=== PATIENT | female | born 1975 | race Hispanic/Latino ===

== ENCOUNTER 2017-09-13 22:50 | Emergency (ER) | payer SELFPAY ==
[2017-09-13 23:10] LABS: Absolute Lymphocytes (CBC) 2.4 K/uL (0.7-4.9); Absolute Monocytes 0.7 K/uL (0.1-1.3); Absolute Neutrophil 5.8 K/uL (1.8-8.0); Eosinophils % 3.4 % (0-4.4); Hematocrit 37.2 % (36.0-45.0); Lymphocytes % 25.8 % (15.3-44.8); MCV 82.3 fL (80-100); MPV 9.7 fL (7.6-11.3); Monocytes % 7.3 % (3.3-12.3); RBC Red Blood Cell Count 4.52 M/uL (3.86-4.86)
[2017-09-13 23:17] LABS: Protime INR 0.92
[2017-09-13 23:24] LABS: Potassium 3.6 mmol/L (3.5-5.1)
[2017-09-13] MEDS ORDERED: NA CHLORIDE 0.9% 1,000 ML ONE (23:31)
[2017-09-13] MEDS ORDERED: ASPIRIN 81 MG CHEWABLE TABLET ONE (23:48)
[2017-09-13] MEDS ORDERED: FOLIC ACID 5 MG/ML VIAL ONE (23:49)
--- NOTE | 2017-09-14 00:18 | ER ---
Nurse's Notes [facility] Name: Shivani Lagunas Age: 42 yrs Sex: Female : 1975 Arrival Date: 09/13/2017 Time: 22:57 Bed 24 Private MD: Diagnosis: Weakness;Anxiety disorder, unspecified Presentation: 09/13 22:58 Presenting complaint: Patient states: she is having numbness to her face, arms, and bb legs since 1800 tonight. Transition of care: patient was not received from another setting of care. No acute neurological deficit is noted. Onset of symptoms was September 13, 2017 at 18:00. Risk Assessment: Do you want to hurt yourself or someone else? Patient reports no desire to harm self or others. Initial Sepsis Screen: Does the patient meet any 2 criteria? No. Patient's initial sepsis screen is negative. Does the patient have a suspected source of infection? No. Patient's initial sepsis screen is negative. Care prior to arrival: None. 22:58 Method Of Arrival: Ambulatory bb 22:58 Acuity: ALICIA 3 bb 22:58 Pre-hospital glucose is not applicable to this patient. 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 bb Stroke Activation: Symtpom onset >3 hours and < 6 hours Physician: Stroke Attending; Name: ; Notified At: ; Arrived At: Physician: Chief Stroke Resident; Name: ; Notified At: ; Arrived At: Physician: Stroke Resident; Name: ; Notified At: ; Arrived At: Physician: ED Attending; Name: PIETRO; Notified At: 22:58; Arrived At: 23:00 Physician: ED Resident; Name: ; Notified At: ; Arrived At: Historical: - Allergies: 23:12 Sulfa (Sulfonamide Antibiotics); bb - PMHx: 23:12 depression, anxiety, insomnia; Hypertension; Gout; fatty liver; bb - PSHx: 23:12 Cholecystectomy; ; Tubal ligation; bb - Immunization history:: Adult Immunizations up to date. - Social history:: Smoking status: Patient/guardian denies using tobacco, Patient/guardian denies using alcohol, street drugs. - Family history:: not pertinent. - Ebola Screening: : No symptoms or risks identified at this time. Screenin:05 Abuse screen: Denies threats or abuse. Nutritional screening: No deficits noted. bb Tuberculosis screening: No symptoms or risk factors identified. Fall Risk None identified. 23:20 The patient has not been NPO before screening. The patient is alert, able to follow bb commands. The patient does not exhibit slurred or garbled speech The patient is not exhibiting difficulty speaking. The patient does not exhibit difficulty understanding words. The patient is able to swallow own secretions with no drooling or need for suction. Patient tolerated one teaspoon of water. No drooling, immediate coughing, gurgling, or clearing of the throat was noted. The patient tolerated 90mL of water. No drooling, immediate coughing, gurgling, or clearing of the throat was noted. The patient passed the bedside swallow screening. Oral medications may be given as ordered. Contact Physician for further diet orders. 23:21 Patient has been NPO before screening. The patient is alert, able to follow commands. ed1 The patient does not exhibit slurred or garbled speech The patient is not exhibiting difficulty speaking. The patient does not exhibit difficulty understanding words. The patient is able to swallow own secretions with no drooling or need for suction. Patient tolerated one teaspoon of water. No drooling, immediate coughing, gurgling, or clearing of the throat was noted. The patient tolerated 90mL of water. No drooling, immediate coughing, gurgling, or clearing of the throat was noted. The patient passed the bedside swallow screening. Oral medications may be given as ordered. Contact Physician for further diet orders. Provider notified of bedside swallow screening results: Bal Dowling MD. Assessment: 23:05 Reassessment: PT TO CT SCAN VIA STRETCHER. bb 23:22 Reassessment: PT HAS NO NEURO DEFICITS SO NO DECISION FOR TPA. bb 23:22 Patient has been NPO before screening. The patient is alert, and able to follow ed1 commands. The patient does not exhibit slurred or garbled speech. The patient is not exhibiting difficulty speaking. The patient does not exhibit difficulty understanding words. The patient is able to swallow own secretions with no drooling or need for suction. Patient tolerated one teaspoon of water. No drooling, immediate coughing, gurgling, or clearing of the throat was noted. The patient tolerated 90mL of water. No drooling, immediate coughing, gurgling, or clearing of the throat was noted. The patient passed the bedside swallow screening. Oral medications may be given as ordered. Contact Physician for further diet orders. Provider notified of bedside swallow screening results: Bal Dowling MD. T-PA (Activase) Screening: Contraindications: Rapidly improving condition or minor deficit: Yes. Pain: Denies pain. Neuro: Level of Consciousness is awake, alert, obeys commands, Oriented to person, place, time, situation, Filling Mixer are equal bilaterally Moves all extremities. Full function Gait is steady, Speech is normal, Facial symmetry appears normal, Pupils are PERRLA, Intact Denies weakness blurred vision dizziness, difficulty swallowing, paresthesias numbness headache photophobia diplopia. 09/14 00:12 Reassessment: Patient appears in no apparent distress at this time. Patient and/or ed1 family updated on plan of care and expected duration. Pain level reassessed. Patient is alert, oriented x 3, equal unlabored respirations, skin warm/dry/pink. Pt reports tingling in hands only Patient denies pain at this time. Patient states feeling better. Patient states symptoms have improved. Vital Signs: 09/13 23:00 BP 168 / 92; Pulse 76; Resp 16 S; Temp 98.6(O); Pulse Ox 96% on R/A; Weight 86.64 kg bb (R); Height 5 ft. 6 in. (167.64 cm); Pain 0/10; 23:22 BP 150 / 98; Pulse 70; Resp 16; Pulse Ox 98% on R/A; Pain 0/10; ed1 09/14 00:12 BP 155 / 87; Pulse 65; Resp 18; Pulse Ox 99% on R/A; Pain 0/10; ed1 09/13 23:00 Body Mass Index 30.83 (86.64 kg, 167.64 cm) bb [place] Coma Score: 09/13 23:11 Eye Response: spontaneous(4). Verbal Response: oriented(5). Motor Response: obeys lori commands(6). Total: 15. NIH Stroke Scale Scores: 23:05 NIHSS Score: 0 bb 23:05 NIHSS Score: 0 bb 23:11 NIHSS Score: 0 lori ED Course: 22:57 Patient arrived in ED. ed1 22:59 Initial lab(s) drawn, by ED staff, sent to lab. EKG done, by ED staff, reviewed by yessenia Dowling MD. Inserted saline lock: 20 gauge in right antecubital area, using aseptic technique. Blood collected. 23:00 Arm band placed on Patient placed in an exam room, on a stretcher, on pulse oximetry. bb 23:01 EKG completed in triage. Results shown to MD. bb 23:05 Patient has correct armband on for positive identification. Placed in gown. Bed in low bb position. Call light in reach. Side rails up X2. 23:07 Bal Dowling MD is Attending Physician. lori 23:11 Triage completed. bb 23:11 CT Stroke Brain w/o Contrast In Process Unspecified. EDMS 23:12 CT completed. Patient tolerated procedure well. Patient moved to CT via stretcher. Patient moved back from CT. 23:14 Diann Jenkins LVN is Primary Nurse. ed1 23:33 X-ray completed. Portable x-ray completed in exam room. Patient tolerated procedure kw well. 23:35 Stroke CXR 1 View In Process Unspecified. EDMS 08/03 00:18 Vasyl Sawant MD is Referral Physician. lori 00:24 No provider procedures requiring assistance completed. IV discontinued, intact, ed1 bleeding controlled, No redness/swelling at site. Pressure dressing applied. 00:28 Primary Nurse role handed off by Diann Jenkins LVN ed1 Administered Medications: 09/13 23:25 Drug: NS 0.9% 1000 ml Route: IV; Rate: 1 bolus; Site: right antecubital; ed1 /03 00:25 Follow up: IV Status: Completed infusion; IV Intake: 1000ml ed1 09/13 23:46 Drug: Aspirin Chewable Tablet 324 mg Route: PO; ed1 /03 00:25 Follow up: Response: No adverse reaction ed1 / 23:46 Drug: foLIC Acid 1 mg Route: IVPB; Site: right antecubital; ed1 23:50 Follow up: IV Status: Completed infusion ed1 Point of Care Testing: Blood Glucose: 23:19 Blood Glucose: 100 mg/dL; ed1 Ranges: Intake: 09/14 00:25 IV: 1000ml; Total: 1000ml. ed1 Outcome: 00:18 Discharge ordered by MD. lori 00:24 Discharged to home ambulatory, with family. ed1 00:24 Condition: good 00:24 Discharge instructions given to patient, Instructed on discharge instructions, follow up and referral plans. medication usage, Demonstrated understanding of instructions, follow-up care, medications, Prescriptions given X 1. 00:26 Patient left the ED. ed1 NIH Stroke Scale - NIH Stroke Score Date: 09/13/2017 Time: 23:05 Total Score = 0 1a. Level of Consciousness (LOC) - 0(Alert) 1b. Level of Consciousness (LOC) (Year \T\ Age) - 0(Both) 1c. LOC Commands (Open \T\ Closes Eyes/Exterminator) - 0(Both) 2. Best Gaze (Lateral Gaze Paresis) - 0(Normal) 3. Visual Field Loss - 0(No visual loss) 4. Facial Palsy - 0(Normal) 5a. Left Arm: Motor (10-second hold) - 0(No drift) 5b. Right Arm: Motor (10-second hold) - 0(No drift) 6a. Left Leg: Motor (5-second hold - always test supine) - 0(No drift) 6b. Right Leg: Motor (5-second hold - always test supine) - 0(No drift) 7. Limb Ataxia (finger/nose \T\ heel/mejia - test with eyes open) - 0(Absent) 8. Sensory Loss (pinprick arms/legs/face) - 0(Normal) 9. Best Language: Aphasia (description/naming/reading) - 0(No aphasia) 10. Dysarthria (speech clarity - read or repeat words) - 0(Normal) 11. Extinction and Inattention (visual/tactile/auditory/spatial/personal) - 0(No abnormality) Initials: NIH Stroke Scale - NIH Stroke Score Date: 09/13/2017 Time: 23:05 Total Score = 0 1a. Level of Consciousness (LOC) - 0(Alert) 1b. Level of Consciousness (LOC) (Year \T\ Age) - 0(Both) 1c. LOC Commands (Open \T\ Closes Eyes/Exterminator) - 0(Both) 2. Best Gaze (Lateral Gaze Paresis) - 0(Normal) 3. Visual Field Loss - 0(No visual loss) 4. Facial Palsy - 0(Normal) 5a. Left Arm: Motor (10-second hold) - 0(No drift) 5b. Right Arm: Motor (10-second hold) - 0(No drift) 6a. Left Leg: Motor (5-second hold - always test supine) - 0(No drift) 6b. Right Leg: Motor (5-second hold - always test supine) - 0(No drift) 7. Limb Ataxia (finger/nose \T\ heel/mejia - test with eyes open) - 0(Absent) 8. Sensory Loss (pinprick arms/legs/face) - 0(Normal) 9. Best Language: Aphasia (description/naming/reading) - 0(No aphasia) 10. Dysarthria (speech clarity - read or repeat words) - 0(Normal) 11. Extinction and Inattention (visual/tactile/auditory/spatial/personal) - 0(No abnormality) Initials: yessenia NIH Stroke Scale - NIH Stroke Score Date: 09/13/2017 Time: 23:11 Total Score = 0 1a. Level of Consciousness (LOC) - 0(Alert) 1b. Level of Consciousness (LOC) (Year \T\ Age) - 0(Both) 1c. LOC Commands (Open \T\ Closes Eyes/Exterminator) - 0(Both) 2. Best Gaze (Lateral Gaze Paresis) - 0(Normal) 3. Visual Field Loss - 0(No visual loss) 4. Facial Palsy - 0(Normal) 5a. Left Arm: Motor (10-second hold) - 0(No drift) 5b. Right Arm: Motor (10-second hold) - 0(No drift) 6a. Left Leg: Motor (5-second hold - always test supine) - 0(No drift) 6b. Right Leg: Motor (5-second hold - always test supine) - 0(No drift) 7. Limb Ataxia (finger/nose \T\ heel/mejia - test with eyes open) - 0(Absent) 8. Sensory Loss (pinprick arms/legs/face) - 0(Normal) 9. Best Language: Aphasia (description/naming/reading) - 0(No aphasia) 10. Dysarthria (speech clarity - read or repeat words) - 0(Normal) 11. Extinction and Inattention (visual/tactile/auditory/spatial/personal) - 0(No abnormality) Initials: lori Signatures: Dispatcher [employer] EDBal Degroot MD MD cha Hagler, Ervin eh Ballard, Teresa, RN RN bb Diann Jenkins, TOP SPOTTER TOP SPOTTER ed1 Angela Siegel
--- NOTE | 2017-09-14 00:19 | EDPHYS ---
Physician Documentation [facility] Name: Shivani Lagunas Age: 42 yrs Sex: Female : 1975 Arrival Date: 09/13/2017 Time: 22:57 Bed 24 Private MD: ED Physician Bal Dowling HPI: 09/13 23:08 This 42 yrs old Female presents to ER via Unassigned with complaints of S/S of lori Possible Stroke. 23:08 The patient's problem is reported as weakness. Onset: The symptoms/episode lori began/occurred today. Duration: This was a single incident. Context: the episode(s) was witnessed, by no one. The symptoms are alleviated by nothing. The symptoms are aggravated by nothing. Associated signs and symptoms: The patient has no apparent associated signs or symptoms. Severity of symptoms: At their worst the symptoms were. Patient's baseline: Neuro: alert and fully oriented. The patient has not experienced similar symptoms in the past. 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 - Social history:: Smoking status: Patient/guardian denies using tobacco, Patient/guardian denies using alcohol, street drugs. - Family history:: not pertinent. - Ebola Screening: : No symptoms or risks identified at this time. ROS: 23:08 Constitutional: Negative for fever, chills, and weight loss, Eyes: Negative for injury, lori pain, redness, and discharge, ENT: Negative for injury, pain, and discharge, Neck: Negative for injury, pain, and swelling, Cardiovascular: Negative for chest pain, palpitations, and edema, Respiratory: Negative for shortness of breath, cough, wheezing, and pleuritic chest pain, Abdomen/GI: Negative for abdominal pain, nausea, vomiting, diarrhea, and constipation, Back: Negative for injury and pain, : Negative for injury, bleeding, discharge, and swelling, MS/Extremity: Negative for injury and deformity, Skin: Negative for injury, rash, and discoloration, Neuro: Negative for headache, weakness, numbness, tingling, and seizure, Psych: Negative for depression, anxiety, suicide ideation, homicidal ideation, and hallucinations, Allergy/Immunology: Negative for hives, rash, and allergies, Endocrine: Negative for neck swelling, polydipsia, polyuria, polyphagia, and marked weight changes, Hematologic/Lymphatic: Negative for swollen nodes, abnormal bleeding, and unusual bruising. Exam: 23:08 Constitutional: This is a well developed, well nourished patient who is awake, alert, lori and in no acute distress. Head/Face: Normocephalic, atraumatic. Eyes: Pupils equal round and reactive to light, extra-ocular motions intact. Lids and lashes normal. Conjunctiva and sclera are non-icteric and not injected. Cornea within normal limits. Periorbital areas with no swelling, redness, or edema. ENT: Nares patent. No nasal discharge, no septal abnormalities noted. Tympanic membranes are normal and external auditory canals are clear. Oropharynx with no redness, swelling, or masses, exudates, or evidence of obstruction, uvula midline. Mucous membranes moist. Neck: Trachea midline, no thyromegaly or masses palpated, and no cervical lymphadenopathy. Supple, full range of motion without nuchal rigidity, or vertebral point tenderness. No Meningismus. Chest/axilla: Normal chest wall appearance and motion. Nontender with no deformity. No lesions are appreciated. Cardiovascular: Regular rate and rhythm with a normal S1 and S2. No gallops, murmurs, or rubs. Normal PMI, no JVD. No pulse deficits. Respiratory: Lungs have equal breath sounds bilaterally, clear to auscultation and percussion. No rales, rhonchi or wheezes noted. No increased work of breathing, no retractions or nasal flaring. Abdomen/GI: Soft, non-tender, with normal bowel sounds. No distension or tympany. No guarding or rebound. No evidence of tenderness throughout. Back: No spinal tenderness. No costovertebral tenderness. Full range of motion. Skin: Warm, dry with normal turgor. Normal color with no rashes, no lesions, and no evidence of cellulitis. MS/ Extremity: Pulses equal, no cyanosis. Neurovascular intact. Full, normal range of motion. Neuro: Awake and alert, GCS 15, oriented to person, place, time, and situation. Cranial nerves II-XII grossly intact. Motor strength 5/5 in all extremities. Sensory grossly intact. Cerebellar exam normal. Normal gait. Psych: Awake, alert, with orientation to person, place and time. Behavior, mood, and affect are within normal limits. 23:11 Radiologist reports: neg [facility] Vital Signs: 23:00 BP 168 / 92; Pulse 76; Resp 16 S; Temp 98.6(O); Pulse Ox 96% on R/A; Weight 86.64 kg bb (R); Height 5 ft. 6 in. (167.64 cm); Pain 0/10; 23:22 BP 150 / 98; Pulse 70; Resp 16; Pulse Ox 98% on R/A; Pain 0/10; ed1 08 00:12 BP 155 / 87; Pulse 65; Resp 18; Pulse Ox 99% on R/A; Pain 0/10; ed1 08 23:00 Body Mass Index 30.83 (86.64 kg, 167.64 cm) NIH Stroke Scale Scores: 09/13 23:05 NIHSS Score: 0 23:05 NIHSS Score: 0 23:11 NIHSS Score: 0 [facility] [place] Coma Score: 23:11 Eye Response: spontaneous(4). Verbal Response: oriented(5). Motor Response: obeys [facility] commands(6). Total: 15. MDM: 23:07 Patient medically screened. [facility] 23:10 Data reviewed: vital signs, nurses notes, lab test result(s), EKG, radiologic studies, [facility] CT scan, plain films. 09/13 23:00 Order name: Basic Metabolic Panel; Complete Time: 23:36 ms 09/13 23:00 Order name: CBC with Diff; Complete Time: 23:36 id 09/13 23:00 Order name: Protime (+inr); Complete Time: 23:36 ms 09/13 23:00 Order name: Ptt, Activated; Complete Time: 23:36 id 09/13 23:00 Order name: Urine Microscopic Only ms 09/13 23:08 Order name: Urine Culture [facility] 09/13 23:00 Order name: CT Stroke Brain w/o Contrast ms 09/13 23:00 Order name: Stroke CXR 1 View ms 09/13 23:08 Order name: TSH; Complete Time: 23:36 [facility] 09/13 23:17 Order name: Sed Rate; Complete Time: 23:58 ms 09/13 23:17 Order name: CRP; Complete Time: 23:36 ms 09/13 23:00 Order name: EKG; Complete Time: 23:01 ms 09/13 23:00 Order name: Accucheck; Complete Time: 23:19 ms 09/13 23:00 Order name: Cardiac monitoring; Complete Time: 23:19 ms 09/13 23:00 Order name: EKG - Nurse/Tech; Complete Time: 23:18 ms 09/13 23:00 Order name: IV Saline Lock; Complete Time: 23:18 ms 09/13 23:00 Order name: Labs collected and sent; Complete Time: 23:18 ms 08 23:00 Order name: NPO; Complete Time: 23:15 ms 09/13 23:00 Order name: O2 Per Protocol; Complete Time: 23:15 ms 09/13 23:00 Order name: O2 Sat Monitoring; Complete Time: 23:15 ms 09/13 23:00 Order name: Stroke Swallow Screen; Complete Time: 23:22 ms 09/13 23:00 Order name: Urine Dipstick-Ancillary (obtain specimen); Complete Time: 00:13 ms Administered Medications: 23:25 Drug: NS 0.9% 1000 ml Route: IV; Rate: 1 bolus; Site: right antecubital; ed1 08/03 00:25 Follow up: IV Status: Completed infusion; IV Intake: 1000ml ed1 / 23:46 Drug: Aspirin Chewable Tablet 324 mg Route: PO; ed1 09/14 00:25 Follow up: Response: No adverse reaction ed1 / 23:46 Drug: foLIC Acid 1 mg Route: IVPB; Site: right antecubital; ed1 23:50 Follow up: IV Status: Completed infusion ed1 Point of Care Testing: Blood Glucose: 23:19 Blood Glucose: 100 mg/dL; ed1 Ranges: Critical Glucose Levels:Adult <50 mg/dl or >400 mg/dl <40 mg/dl or >180 mg/dl Disposition: 09/14/17 00:18 Discharged to Home. Impression: Weakness, Anxiety disorder, unspecified. - Condition is Stable. - Discharge Instructions: Panic Attacks, Weakness, Weakness, [id number], Aspirin and Your Heart, Generalized Anxiety Disorder. - Prescriptions for Xanax 0.5 mg Oral Tablet - take 1 tablet by ORAL route every 8 hours As needed; 20 tablet. - Medication Reconciliation Form, Thank You Letter, Antibiotic Education, Prescription Opioid Use form. - Follow up: Private Physician; When: 2 - 3 days; Reason: Recheck today's complaints, Continuance of care, Re-evaluation by your physician. Follow up: Vasyl Sawant; When: 2 - 3 days; Reason: Recheck today's complaints, Continuance of care, Re-evaluation by your physician. - Problem is new. - Symptoms have improved. NIH Stroke Scale - NIH Stroke Score Date: 09/13/2017 Time: 23:05 Total Score = 0 1a. Level of Consciousness (LOC) - 0(Alert) 1b. Level of Consciousness (LOC) (Year \T\ Age) - 0(Both) 1c. LOC Commands (Open \T\ Closes Eyes/Tool Keeper) - 0(Both) 2. Best Gaze (Lateral Gaze Paresis) - 0(Normal) 3. Visual Field Loss - 0(No visual loss) 4. Facial Palsy - 0(Normal) 5a. Left Arm: Motor (10-second hold) - 0(No drift) 5b. Right Arm: Motor (10-second hold) - 0(No drift) 6a. Left Leg: Motor (5-second hold - always test supine) - 0(No drift) 6b. Right Leg: Motor (5-second hold - always test supine) - 0(No drift) 7. Limb Ataxia (finger/nose \T\ heel/mejia - test with eyes open) - 0(Absent) 8. Sensory Loss (pinprick arms/legs/face) - 0(Normal) 9. Best Language: Aphasia (description/naming/reading) - 0(No aphasia) 10. Dysarthria (speech clarity - read or repeat words) - 0(Normal) 11. Extinction and Inattention (visual/tactile/auditory/spatial/personal) - 0(No abnormality) Initials: yessenia NIH Stroke Scale - NIH Stroke Score Date: 09/13/2017 Time: 23:05 Total Score = 0 1a. Level of Consciousness (LOC) - 0(Alert) 1b. Level of Consciousness (LOC) (Year \T\ Age) - 0(Both) 1c. LOC Commands (Open \T\ Closes Eyes/Tool Keeper) - 0(Both) 2. Best Gaze (Lateral Gaze Paresis) - 0(Normal) 3. Visual Field Loss - 0(No visual loss) 4. Facial Palsy - 0(Normal) 5a. Left Arm: Motor (10-second hold) - 0(No drift) 5b. Right Arm: Motor (10-second hold) - 0(No drift) 6a. Left Leg: Motor (5-second hold - always test supine) - 0(No drift) 6b. Right Leg: Motor (5-second hold - always test supine) - 0(No drift) 7. Limb Ataxia (finger/nose \T\ heel/mejia - test with eyes open) - 0(Absent) 8. Sensory Loss (pinprick arms/legs/face) - 0(Normal) 9. Best Language: Aphasia (description/naming/reading) - 0(No aphasia) 10. Dysarthria (speech clarity - read or repeat words) - 0(Normal) 11. Extinction and Inattention (visual/tactile/auditory/spatial/personal) - 0(No abnormality) Initials: NIH Stroke Scale - NIH Stroke Score Date: 09/13/2017 Time: 23:11 Total Score = 0 1a. Level of Consciousness (LOC) - 0(Alert) 1b. Level of Consciousness (LOC) (Year \T\ Age) - 0(Both) 1c. LOC Commands (Open \T\ Closes Eyes/Tool Keeper) - 0(Both) 2. Best Gaze (Lateral Gaze Paresis) - 0(Normal) 3. Visual Field Loss - 0(No visual loss) 4. Facial Palsy - 0(Normal) 5a. Left Arm: Motor (10-second hold) - 0(No drift) 5b. Right Arm: Motor (10-second hold) - 0(No drift) 6a. Left Leg: Motor (5-second hold - always test supine) - 0(No drift) 6b. Right Leg: Motor (5-second hold - always test supine) - 0(No drift) 7. Limb Ataxia (finger/nose \T\ heel/mejia - test with eyes open) - 0(Absent) 8. Sensory Loss (pinprick arms/legs/face) - 0(Normal) 9. Best Language: Aphasia (description/naming/reading) - 0(No aphasia) 10. Dysarthria (speech clarity - read or repeat words) - 0(Normal) 11. Extinction and Inattention (visual/tactile/auditory/spatial/personal) - 0(No abnormality) Initials: lori Signatures: Dispatcher [employer] EDMS Bal Dowling MD MD cha Ballard, Brenda, RN RN Mercedez Quezada ms AliceDiann, PIG MACHINE CRANE OPERATOR PIG MACHINE CRANE OPERATOR ed1 Corrections: (The following items were deleted from the chart) 09/14 00:26 00:18 09/14/2017 00:18 Discharged to Home. Impression: Weakness; Anxiety ed1 disorder, unspecified. Condition is Stable. Discharge Instructions: Panic Attacks, Weakness, Weakness, [id number], Aspirin and Your Heart, Generalized Anxiety Disorder. Prescriptions for Xanax 0.5 mg Oral Tablet - take 1 tablet by ORAL route every 8 hours As needed; 20 tablet. and Forms are Medication Reconciliation Form, Thank You Letter, Antibiotic Education, Prescription Opioid Use. Follow up: Private Physician; When: 2 - 3 days; Reason: Recheck today's complaints, Continuance of care, Re-evaluation by your physician. Follow up: Vasyl Sawant; When: 2 - 3 days; Reason: Recheck today's complaints, Continuance of care, Re-evaluation by your physician. Problem is new. Symptoms have improved. lori
[2017-09-14 00:30] LABS: Urine Bacteria <20 /HPF (<20); Urine Culture Reflex Order NOT NEEDED; Urine RBC <5 /HPF (NONE SEEN)
[2017-09-14 00:31] LABS: Urine Amorphous Sediment 1+ /HPF (NONE SEEN)
--- NOTE | 2017-09-14 06:47 | EKG ---
Test Date: 2017-09-13 Test Time: 23:01:10 Parts Fabricator: AMANDA MEASUREMENT RESULTS: Intervals: Rate: 69 [place]: 144 QRSD: 88 QT: 412 QTc: 441 [place]: P: 43 KS: 144 QRS: 14 T: 28 INTERPRETIVE STATEMENTS: Normal sinus rhythm Normal ECG Compared to ECG 08/22/2016 13:43:17 No significant changes Electronically Signed On 09-14-17 06:46:26 CDT by Darron Herron
--- NOTE | 2017-09-14 07:23 | RAD REPORT ---
EXAM DESCRIPTION: [place] Single View09/13/2017 11:34 pm CLINICAL HISTORY: Chest pain COMPARISON: August 2016 FINDINGS: The lungs appear clear of acute infiltrate. The heart is normal size IMPRESSION: No acute abnormalities displayed
--- NOTE | 2017-09-14 08:00 | RAD REPORT ---
EXAM DESCRIPTION: CT - Ct Stroke Brain Wo Cont - 09/14/2017 3:53 am CLINICAL HISTORY: numbness and headache COMPARISON: None. TECHNIQUE: Computed axial tomography of the head was obtained. IV contrast was not requested. A preliminary report was generated by NMRKT and reviewed prior to this dictation All CT scans are performed using dose optimization technique as appropriate and may include automated exposure control or mA/KV adjustment according to patient size. FINDINGS: An intracranial bleed is not seen . The ventricles are normal in caliber. No extra-axial fluid collection is noted. Fluid within the sinuses/ mastoids is not seen. IMPRESSION: No acute intracranial abnormality is seen. If patient's symptoms persist MRI of the bra in would be recommended. The examination was discussed with Doctor Dowling by Dr. Adams 11:20 p.m. September 13, 2017
== END 2017-09-14 00:26 | disposition home or self-care (01) ==
LOC: ER 22:50
DX: F41.9 Anxiety disorder, unspecified (principal); I10 Essential (primary) hypertension; Z88.2 Allergy status to sulfonamides
CPT/HCPCS: 36415; 70450; 71045; 80048; 81015; 82962; 84443; 85025; 85610; 85652; 85730; 86140; 87077; 87086; 87088; 87186; 93005; 96361; 96374; 99285; J7030

== ENCOUNTER 2018-03-12 10:30 | Emergency (ER) | payer SELFPAY ==
--- OUTSIDE RECORDS SUMMARY | 2018-03-12 10:32 | XMS REPORT ---
:1975 [facility] [place] Dr. Liang [address] [place] [id number] Care Team Providers Name Role Phone Unavailable Unavailable Unavailable Problems This patient has no known problems. Allergies, Adverse Reactions, Alerts This patient has no known allergies or adverse reactions. Medications This patient has no known medications.
[2018-03-12 11:32] LABS: Absolute Lymphocytes (CBC) 1.4 K/uL (0.7-4.9); Absolute Monocytes 0.5 K/uL (0.1-1.3); Absolute Neutrophil 5.6 K/uL (1.8-8.0); Basophils % 1.1 % (0-1.3); Eosinophils % 1.5 % (0-4.4); Hematocrit 35.8 % (36.0-45.0); Lymphocytes % 18.4 % (15.3-44.8); MPV 10.3 fL (7.6-11.3); Monocytes % 6.7 % (3.3-12.3); RBC Red Blood Cell Count 4.32 M/uL (3.86-4.86)
[2018-03-12 11:50] LABS: Protime INR 0.95
[2018-03-12 11:57] LABS: ALT/SGPT 23 U/L (12-78); AST/SGOT 15 U/L (15-37); Alkaline Phosphatase 122 U/L (45-117); BUN Blood Urea Nitrogen 11 mg/dL (7-18); Bicarbonate 26 mmol/L (21-32); Bilirubin Direct < 0.1 mg/dL (0-0.2); Bilirubin Total 0.1 mg/dL (0.2-1.0); Glucose Level 119 mg/dL (74-106); Magnesium 2.1 mg/dL (1.8-2.4); NT PRO-BNP 32 pg/mL (<125); Potassium 3.7 mmol/L (3.5-5.1); Protein, Total 6.9 g/dL (6.4-8.2); Sodium Level 142 mmol/L (136-145); T3 Free 2.22 pg/mL (2.18-3.98); Thyroid Stimulating Hormone 0.801 uIU/mL (0.360-3.740); Troponin (Emerg Dept Use Only) < 0.02 ng/mL (0.0-0.045)
--- NOTE | 2018-03-12 12:26 | RAD REPORT ---
EXAM DESCRIPTION: RAD - Chest Single View - 03/12/2018 12:20 pm CLINICAL HISTORY: PALPITATIONS Chest pain. COMPARISON: Chest Single View dated 09/13/2017; Chest Single View dated 08/22/2016 FINDINGS: Portable technique limits examination quality. The lungs are grossly clear. The heart is normal in size. No displaced fractures. IMPRESSION: No acute intrathoracic process suspected.
[2018-03-12 13:05] LABS: Barbiturates NEGATIVE (NEGATIVE); Benzodiazepines NEGATIVE (NEGATIVE); Cocaine NEGATIVE (NEGATIVE); METHAMPHETAM NEGATIVE (NEGATIVE); Methadone NEGATIVE (NEGATIVE); Opiates NEGATIVE (NEGATIVE); Phencyclidine NEGATIVE (NEGATIVE); THC Cannibis NEGATIVE (NEGATIVE)
[2018-03-12 13:44] LABS: Urine Blood 1+ (NEG); Urine Glucose NEGATIVE (NEG); Urine Protein NEGATIVE (NEG); Urine pH 6.5 (5.0-7.0)
--- NOTE | 2018-03-12 13:48 | ER ---
Nurse's Notes [facility] Name: Shivani Lagunas Age: 42 yrs Sex: Female : 1975 Arrival Date: 03/12/2018 Time: 10:32 Bed 13 Private MD: Nancy Kc K Diagnosis: Palpitations;Hemorrhoids in the puerperium Presentation: 03/12 10:38 Presenting complaint: Patient states: palpitations x 3 days, worse this morning. Pt ss reports she was recently diagnosed by her PCP with a fast arrhythmia and given new medication, but it has not been helping. Transition of care: patient was not received from another setting of care. Onset of symptoms is unknown. Risk Assessment: Do you want to hurt yourself or someone else? Patient reports no desire to harm self or others. Initial Sepsis Screen: Does the patient meet any 2 criteria? No. Patient's initial sepsis screen is negative. Does the patient have a suspected source of infection? No. Patient's initial sepsis screen is negative. Care prior to arrival: None. 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 - Social history:: Smoking status: Patient/guardian denies using tobacco. - Ebola Screening: : Patient denies exposure to infectious person Patient denies travel to an Ebola-affected area in the 21 days before illness onset. Screenin:42 Abuse screen: Denies threats or abuse. Denies injuries from another. Nutritional ca1 screening: No deficits noted. Tuberculosis screening: No symptoms or risk factors identified. Fall Risk. Assessment: 10:39 General: Appears in no apparent distress. comfortable, Behavior is calm, cooperative, ca1 appropriate for age. Pain: Complains of pain in chest Pain does not radiate. Pain at worst was 4 out of 10 on a pain scale. Quality of pain is described as tightness. Pain: Pain began 2-3 days ago. Neuro: Level of Consciousness is awake, alert, obeys commands, Oriented to person, place, time, situation. Cardiovascular: Heart tones S1 S2 present Capillary refill < 3 seconds. Respiratory: Airway is patent Trachea midline Respiratory effort is even, unlabored, Respiratory pattern is regular, symmetrical, Breath sounds are clear bilaterally. GI: Abdomen is round non-distended, Bowel sounds present X 4 quads. Abd is soft and non tender X 4 quads. : No signs and/or symptoms were reported regarding the genitourinary system. EENT: No signs and/or symptoms were reported regarding the EENT system. EENT:. Derm: Skin is intact, is healthy with good turgor, Skin is pink, warm \\T\\ dry. Musculoskeletal: Circulation, motion, and sensation intact. 11:24 Reassessment: Patient appears in no apparent distress at this time. Patient and/or ca1 family updated on plan of care and expected duration. Pain level reassessed. Patient is alert, oriented x 3, equal unlabored respirations, skin warm/dry/pink. 12:10 Reassessment: Xray at bedside. followed up on urine specimen. ca1 12:40 Reassessment: Patient is alert, oriented x 3, equal unlabored respirations, skin aa5 warm/dry/pink. Pt ambulatory to restroom, pt voided x 1. Pt states "I had bright red blood in my stool just now". PA was notified of pt's statement. . 13:10 Reassessment: Rectal exam performed by PA, PA reports external hemorrhoids. 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 . 13:30 Reassessment: Emma from Cardiology Dept. at bedside for the Holter Monitor. ca1 13:50 Reassessment: Pt states feeling better, and not having any palpitations while in the ER.ca1 Vital Signs: 10:42 Resp 16; Temp 98.9(O); Weight 93.89 kg; Height 5 ft. 6 in. (167.64 cm); Pain 0/10; ss 11:24 BP 126 / 72; Pulse 70; Resp 19; Pulse Ox 100% on R/A; ca1 13:44 BP 144 / 77; Pulse 66; Resp 20; Pulse Ox 97% on R/A; ca1 10:42 Body Mass Index 33.41 (93.89 kg, 167.64 cm) ED Course: 10:32 Patient arrived in ED. mr 10:33 Nancy Kc MD is Private Physician. mr 10:33 Kim Tillman, AMANDA is Primary Nurse. ca1 10:39 Triage completed. ss 10:39 Bal Sagastume PA is PHCP. cp 10:40 Nataliya Bowling MD is Attending Physician. cp 10:42 Arm band placed on right wrist. ss 10:42 Patient has correct armband on for positive identification. Placed in gown. Bed in low ca1 position. Call light in reach. Side rails up X2. secured entrance monitor on. Pulse ox on. NIBP on. Warm blanket given. 11:15 Missed attempt(s): 22 gauge in left hand. ca1 11:19 Inserted saline lock: 22 gauge in right hand, using aseptic technique. Blood collected. ca1 12:19 X-ray completed. Portable x-ray completed in exam room. Patient tolerated procedure jb2 well. 12:21 XRAY Chest (1 view) In Process Unspecified. EDMS 12:40 Urine collected: clean catch specimen, clear. aa5 13:46 Darron Herron MD is Referral Physician. cp 13:51 No provider procedures requiring assistance completed. IV discontinued, intact, ca1 bleeding controlled, No redness/swelling at site. Pressure dressing applied. Administered Medications: No medications were administered Outcome: 13:48 Discharge ordered by MD. cp 13:51 Discharged to home ambulatory. ca1 13:51 Condition: stable 13:51 Discharge instructions given to patient, Instructed on discharge instructions, follow up and referral plans. Demonstrated understanding of instructions, follow-up care. 13:58 Patient left the ED. ca1 Signatures: Dispatcher [employer] EDOR Iona Jones mr Rebecca Rodase jb2 Soha Salinas, AMNADA RN aa5 Yvonne Downs RN RN Bal Sagastume, PA PA cp Acob, Kim, RN RN ca1
--- NOTE | 2018-03-12 13:48 | EDPHYS ---
Physician Documentation [facility] Name: Shivani Lagunas Age: 42 yrs Sex: Female : 1975 Arrival Date: 03/12/2018 Time: 10:32 Bed 13 Private MD: Nancy Kc K ED Physician Nataliya Bowling HPI: 03/12 11:05 This 42 yrs old Female presents to ER via Ambulatory with complaints of cp Palpitations, Numbness Of Arm. 11:05 The patient presents with a history of heart racing. cp 11:05 Context: The symptoms occur at rest. Onset: The symptoms/episode began/occurred cp gradually, and became worse 3 day(s) ago. Duration: The patient or guardian reports multiple episodes, that are intermittent. Modifying factors: The symptoms are aggravated by nothing. Associated signs and symptoms: Pertinent positives: chest pain, tingling of left arm, Pertinent negatives: cough, fever, lightheadedness, syncope, vomiting. Severity of symptoms: in the emergency department the symptoms have improved moderately. Patient reports being diagnosed with "fast arrythmia" and being prescribed propanolol. Patient reports medication was recently increased to 40 mg at night. 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 - Social history:: Smoking status: Patient/guardian denies using tobacco. - Ebola Screening: : Patient denies exposure to infectious person Patient denies travel to an Ebola-affected area in the 21 days before illness onset. ROS: 11:10 Constitutional: Negative for body aches, chills, fever, poor PO intake. cp 11:10 Eyes: Negative for injury, pain, redness, and discharge. cp Exam: 10:45 ECG was reviewed by the Attending Physician. cp 11:15 Constitutional: The patient appears in no acute distress, alert, awake, comfortable, cp non-diaphoretic, non-toxic, well developed, well nourished. 11:15 Head/Face: Normocephalic, atraumatic. cp 11:15 Eyes: Pupils equal round and reactive to light, extra-ocular motions intact. Lids and lashes normal. Conjunctiva and sclera are non-icteric and not injected. Cornea within normal limits. Periorbital areas with no swelling, redness, or edema. ENT: Nares patent. No nasal discharge, no septal abnormalities noted. Tympanic membranes are normal and external auditory canals are clear. Oropharynx with no redness, swelling, or masses, exudates, or evidence of obstruction, uvula midline. Mucous membranes moist. Neck: Trachea midline, no thyromegaly or masses palpated, and no cervical lymphadenopathy. Supple, full range of motion without nuchal rigidity, or vertebral point tenderness. No Meningismus. Chest/axilla: Normal chest wall appearance and motion. Nontender with no deformity. No lesions are appreciated. 11:15 Cardiovascular: Rate: normal, Rhythm: regular, Pulses: Pulses are 2+ in right radial artery and left radial artery. Heart sounds: murmur, not appreciated, rub, not appreciated, gallop, not appreciated, Edema: is not appreciated, JVD: is not appreciated. 11:15 Respiratory: the patient does not display signs of respiratory distress, Respirations: normal, no use of accessory muscles, no retractions, no splinting, no tachypnea, labored breathing, is not present, Breath sounds: are clear throughout, no decreased breath sounds, no stridor, no wheezing. 11:15 Abdomen/GI: Inspection: abdomen appears normal, Bowel sounds: active, all quadrants, Palpation: abdomen is soft and non-tender, in all quadrants, rebound tenderness, is not appreciated, voluntary guarding, is not appreciated, involuntary guarding, is not appreciated. 11:15 Back: pain, is absent, ROM is normal. 11:15 Skin: cellulitis, is not appreciated, no rash present. 11:15 Neuro: Orientation: to person, place \\T\\ time. Mentation: is normal, Cerebellar function: is grossly normal, Motor: moves all fours, strength is normal, Sensation: no obvious gross deficits. 13:15 : Rectal exam: hemorrhoid(s), external. cp Vital Signs: 10:42 Resp 16; Temp 98.9(O); Weight 93.89 kg; Height 5 ft. 6 in. (167.64 cm); Pain 0/10; ss 11:24 BP 126 / 72; Pulse 70; Resp 19; Pulse Ox 100% on R/A; ca1 13:44 BP 144 / 77; Pulse 66; Resp 20; Pulse Ox 97% on R/A; ca1 10:42 Body Mass Index 33.41 (93.89 kg, 167.64 cm) ss MDM: 10:40 Patient medically screened. cp 13:00 ED course: Patient reports to nurse noticing bright red blood in stool after having cp painless bowel movement while in ED. 13:47 Data reviewed: vital signs, nurses notes, lab test result(s), EKG, radiologic studies, cp plain films. 13:47 Test interpretation: by ED physician or midlevel provider: ECG, plain radiologic cp studies. 13:47 Counseling: I had a detailed discussion with the patient and/or guardian regarding: the cp historical points, exam findings, and any diagnostic results supporting the discharge/admit diagnosis, lab results, radiology results, the need for outpatient follow up, a home theater specialist, to return to the emergency department if symptoms worsen or persist or if there are any questions or concerns that arise at home. 13:47 ED course: VSS. Patient reports to be feeling better after IV fluids. Holter monitor cp placed by cardiology. Will discharge to home for continued monitoring. 03/12 11:00 Order name: Basic Metabolic Panel; Complete Time: 12:55 cp 03/12 12:55 Interpretation: Normal except: CL 110; GLUC 119. cp 03/12 11:00 Order name: CBC with Diff; Complete Time: 12:55 cp 03/12 12:55 Interpretation: Normal except: HGB 11.8; HCT 35.8. cp 03/12 11:00 Order name: LFT's; Complete Time: 12:55 cp 03/12 12:56 Interpretation: Normal except: ALK 122; BILIT 0.1; ALB 3.0; GLOB 3.9; A/G 0.8. cp 03/12 11:00 Order name: Magnesium; Complete Time: 12:55 cp 03/12 11:00 Order name: NT PRO-BNP; Complete Time: 12:55 cp 03/12 11:00 Order name: PT-INR; Complete Time: 12:55 cp 03/12 11:00 Order name: Troponin (emerg Dept Use Only); Complete Time: 12:55 cp 03/12 11:00 Order name: XRAY Chest (1 view); Complete Time: 12:55 cp 03/12 11:00 Order name: TSH; Complete Time: 12:55 cp 03/12 11:00 Order name: UDS cp 03/12 11:00 Order name: T3 Free; Complete Time: 12:55 cp 03/12 11:00 Order name: T4 Free; Complete Time: 12:55 cp 03/12 12:53 Order name: Urine Dipstick--Ancillary (enter results) 03/12 12:53 Order name: Urine --Ancillary (enter results) 03/12 11:00 Order name: EKG; Complete Time: 11:02 cp 03/12 11:00 Order name: Cardiac monitoring; Complete Time: 11:23 cp 03/12 11:00 Order name: EKG - Nurse/Tech; Complete Time: 11: cp 03/12 11:00 Order name: IV Saline Lock; Complete Time: 11: cp 03/12 11:00 Order name: Labs collected and sent; Complete Time: 11: cp 03/12 11:00 Order name: O2 Per Protocol; Complete Time: 11: cp 03/12 11:00 Order name: O2 Sat Monitoring; Complete Time: 11: cp 03/12 11:00 Order name: Urine Dipstick-Ancillary (obtain specimen); Complete Time: 12:49 cp 03/12 11:00 Order name: Urine Test (obtain specimen); Complete Time: 12:49 cp 03/12 13:15 Order name: Holter Monitor (ORDER); Complete Time: 13:16 bd EC:45 Rate is 81 beats/min. Rhythm is regular. MT interval is normal. QRS interval is normal. cp QT interval is normal. Interpreted by me. Reviewed by me. Administered Medications: No medications were administered Disposition: 18:25 Co-signature as Attending Physician, Nataliya Bowling MD. ma2 Disposition: 03/12/18 13:48 Discharged to Home. Impression: Palpitations, Hemorrhoids in the puerperium. - Condition is Stable. - Discharge Instructions: Hemorrhoids, Holter Monitoring, Palpitations. - Medication Reconciliation Form, Thank You Letter, Antibiotic Education, Prescription Opioid Use form. - Follow up: Darron Herron MD; When: 2 - 3 days; Reason: Recheck today's complaints. - Problem is an ongoing problem. - Symptoms have improved. Signatures: Dispatcher [employer] EDMS Yvonne Downs RN RN ss Bal Sagastume PA PA Nataliya Clement MD MD ma2 Kim Tillman RN RN ca1 Corrections: (The following items were deleted from the chart) 13:58 13:48 03/12/2018 13:48 Discharged to Home. Impression: Palpitations; Hemorrhoids in the ca1 puerperium. Condition is Stable. Forms are Medication Reconciliation Form, Thank You Letter, Antibiotic Education, Prescription Opioid Use. Follow up: Darron Herron; When: 2 - 3 days; Reason: Recheck today's complaints. Problem is an ongoing problem. Symptoms have improved. cp 03/13 13:43 03/12 11:15 : Rectal exam: hemorrhoid(s), external, are present, cp cp
--- NOTE | 2018-03-12 17:08 | EKG ---
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
--- NOTE | 2018-03-14 07:19 | HM ---
Indications : Palpitations Diary Notations : None Referring MD : MARC Young Medications: Reading MD : Darron Herron MD : Summary Report Test Date : 03/12/2018 1:18:44 PM Start Time : 1:18:44 PM Total Beats : 68109 Hours Analyzed : 23:22:16 Unknown Beats : 0 Scan Date : 03/13/2018 Artifact : 1:18:11 Other Beats : 0 Percent AFIB : 0.00% Rate Dependent Events Heart Rates Min : 57 BPM at 10:34:00 PM-1 Bradycardia Runs: 1 Pauses : 0 Max : 113 BPM at 9:21:00 PM-1 Longest : 3 beats at 2:09:26 AM-2 Longest : 0.0 secs Avg : 75 BPM Min rate : 44 BPM at 2:09:26 AM-2 at Ventricular Events Supraventricular Events Total Beats : 2 Couplets : 0 Total Beats : 23 Couplets : 0 Triplets : 0 Bigeminy Runs : 0 VTach Runs : 0 SVTach Runs : 0 Longest : 0 beats at Longest : 0 beats at Max Rate ; 0 BPM Max Rate : 0 BPM at Impressions and Findings EKG: Possible anterior myocardial infarction, otherwise normal. Holter: Sinus with rare premature ventricular complexes and premature atrial complexes with no supraventricular tachycardia, no ventricular tachycardia, no atrial fibrillation and no pauses.
== END 2018-03-12 13:58 | disposition home or self-care (01) ==
LOC: ER 10:30
DX: R00.2 Palpitations (principal); R07.9 Chest pain, unspecified; K64.9 Unspecified hemorrhoids; F32.9 Major depressive disorder, single episode, unspecified; F41.9 Anxiety disorder, unspecified; I10 Essential (primary) hypertension; M10.9 Gout, unspecified; Z88.2 Allergy status to sulfonamides
CPT/HCPCS: 36415; 71045; 80048; 80076; 80307; 81003; 81025; 83735; 83880; 84439; 84443; 84481; 84484; 85025; 85610; 93005; 93225; 93226; 99284

== ENCOUNTER 2018-04-12 16:22 | Emergency (ER) | payer SELFPAY ==
--- OUTSIDE RECORDS SUMMARY | 2018-04-12 16:24 | XMS REPORT ---
:1975 [facility] [place] Dr. Liang [address] [place] [id number] Care Team Providers Name Role Phone Unavailable Unavailable Unavailable Problems This patient has no known problems. Allergies, Adverse Reactions, Alerts This patient has no known allergies or adverse reactions. Medications This patient has no known medications.
[2018-04-12 17:31] LABS: Absolute Lymphocytes (CBC) 1.8 K/uL (0.7-4.9); Absolute Monocytes 0.5 K/uL (0.1-1.3); Absolute Neutrophil 5.7 K/uL (1.8-8.0); Basophils % 0.9 % (0-1.3); Eosinophils % 2.1 % (0-4.4); Lymphocytes % 21.7 % (15.3-44.8); Monocytes % 6.4 % (3.3-12.3); RBC Red Blood Cell Count 4.21 M/uL (3.86-4.86)
[2018-04-12 17:49] LABS: BUN Blood Urea Nitrogen 9 mg/dL (7-18); Bicarbonate 27 mmol/L (21-32); Glucose Level 100 mg/dL (74-106); Potassium 4.2 mmol/L (3.5-5.1); Sodium Level 142 mmol/L (136-145)
[2018-04-12 17:51] LABS: HCG, Quantitative < 1 mIU/mL (1-3)
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
== END 2018-04-12 19:07 | disposition home or self-care (01) ==
LOC: ER 16:22
DX: S16.1XXA Strain of muscle, fascia and tendon at neck level, initial encounter (principal); S29.012A Strain of muscle and tendon of back wall of thorax, initial encounter; V49.40XA Driver injured in collision with unspecified motor vehicles in traffic accident, initial encounter; Z88.2 Allergy status to sulfonamides; I10 Essential (primary) hypertension; F41.9 Anxiety disorder, unspecified; F32.9 Major depressive disorder, single episode, unspecified
CPT/HCPCS: 36415; 70450; 71260; 72125; 74177; 80048; 84702; 85025; 99284; Q9967

== ENCOUNTER 2018-08-11 20:44 | Emergency (ER) | payer SELFPAY ==
--- OUTSIDE RECORDS SUMMARY | 2018-08-11 20:47 | XMS REPORT ---
:1975 [facility] [place] [address] Care Team Providers Name Role Phone Unavailable Unavailable Unavailable Payers Payer Name Policy Type Policy Number Effective Date Expiration Date Problems This patient has no known problems. Allergies, Adverse Reactions, Alerts This patient has no known allergies or adverse reactions. Medications This patient has no known medications. Results Test Description Test Time Test Comments Text Results Atomic Results Result Comments LIPID PROFILE (CORONARY RISK) 2018-07-20 07:27:00 Test Item Value Reference Range Comments TRIGLYCERIDES (test code=TRIG) 143 MG/DL TRIGLYCERIDES REFERENCE RANGE: Normal: <150 mg/dLBorderline High: 150-199 mg/dLHigh: 200-499 mg/dLVery High: >=500 mg/dL CHOLESTEROL (test code=CHOL) 190 MG/DL <200 HDL CHOLESTEROL (test code=HDL) 41 MG/DL 40-59 LIPOPROTEIN LDL (test code=LDL) 144 MG/DL 0-99 OPTIMAL.........<100 mg/dLNEAR OPTIMAL/ABOVE OPTIMAL.........100-129 mg/dL BORDERLINE HIGH.........130-159 mg/dL HIGH.........160-189 mg/dL VERY HIGH.........>/=190 mg/dL Comments to Ammonium Nitrate Crystallizer: ADD TO AM LABSLIPID PROFILE (CORONARY RISK)2018-07-20 07:17:00 Test Item Value Reference Range Comments TRIGLYCERIDES (test code=TRIG) 143 MG/DL TRIGLYCERIDES REFERENCE RANGE:Normal: <150 mg/dLBorderline High: 150-199 mg/dLHigh: 200-499 mg/dLVery High: >=500 mg/dL CHOLESTEROL (test code=CHOL) 190 MG/DL <200 HDL CHOLESTEROL (test 41 MG/DL 40-59 code=HDL) LIPOPROTEIN LDL (test MG/DL 0-99 code=LDL) Comments to Ammonium Nitrate Crystallizer: ADD TO AM LABSPROTHROMBIN [id number] 06:24:00 Test Item Value Reference Range Comments PROTHROMBIN TIME PATIENT (test 9.9 SECONDS 9.6-11.6 code=PTP) INTERNATIONAL NORMAL RATIO 0.9 0.8-1.1 The INR is to be used only (test code=INR) for monitoring oral anticoagulanttherapy. INDICATION INR VALUE 1. Prophylaxis, deep venous thrombosis, including high risk surgery. 2.0 - 3.0 2. Prophylaxis, deep venous thrombosis, hip surgery, treatment for deep venous thrombosis or pulmonary prevention of systemic embolism in patients with valvular heart disease, atrial fibrillation, tissue heart valve, or acute myocardial infarction. 2.0 - 3.0 3. Mechanical prosthesis heart valves, recurrent systemic embolism. 3.0 - 4.5 Comments to Ammonium Nitrate Crystallizer: NURSE WILL BRING SPECIMEN TO LABPTT [id number] 06:24:00 Test Item Value Reference Range Comments PTT ACTIVATED (test code=APTT) 29.3 SECONDS 22.0-33.0 Comments to Ammonium Nitrate Crystallizer: NURSE WILL BRING SPECIMEN TO LABBASIC METABOLIC [id number] 06:13:00 Test Item Value Reference Range Comments SODIUM (test code=NA) 141 MMOL/L 137-145 POTASSIUM (test code=K) 3.8 MMOL/L 3.5-5.1 CHLORIDE (test code=CL) 104 MMOL/L 98-107 CARBON DIOXIDE (test code=CO2) 28 MMOL/L 22-30 GLUCOSE (test code=GLU) 106 MG/DL 74-106 BLOOD UREA NITROGEN (test 11 MG/DL 7-17 code=BUN) GLOMERULAR FILTRATION RATE > 60 Reporting units: ml/min/1.73 (test code=GFR) m2 (Modified MDRD Formula)Reference Range: > or=60 ml/min/1.73 m2 CREATININE (test code=CREAT) 0.70 MG/DL 0.52-1.04 CALCIUM (test code=CA) 9.6 MG/DL 8.4-10.2 Comments to Ammonium Nitrate Crystallizer: NURSE WILL BRING SPECIMEN TO LAB Comments to Ammonium Nitrate Crystallizer: NURSE WILL BRING SPECIMEN TO [id number] 06:13:00 Test Item Value Reference Range Comments MAGNESIUM (test code=MAG) 2.2 MG/DL 1.6-2.3 Comments to Ammonium Nitrate Crystallizer: NURSE WILL BRING SPECIMEN TO LAB Comments to Ammonium Nitrate Crystallizer: NURSE WILL BRING SPECIMEN TO LABCBC W/AUTO [id number] 06:02:00 Test Item Value Reference Range Comments WHITE BLOOD CELL (test code=WBC) 9.8 K/MM3 3.8-9.8 RED BLOOD CELL (test code=RBC) 4.33 M/MM3 3.58-4.97 HEMOGLOBIN (test code=HGB) 11.9 G/DL 11.2-14.9 HEMATOCRIT (test code=HCT) 36.3 % 33.2-43.5 MEAN CELL VOLUME (test code=MCV) 84 fL 80.7-99.1 MEAN CELL HGB (test code=MCH) 27.5 pg 27.0-34.1 MEAN CELL HGB CONCETRATION (test code=MCHC) 32.8 % 32.2-35.7 RED CELL DISTRIBUTION WIDTH (test code=RDW) 14.6 % 12.1-15.2 PLATELET COUNT (test code=PLT) 262 K/MM3 129-368 MEAN PLATELET VOLUME (test code=MPV) 11.9 fl 7.4-10.4 NEUTROPHIL % (test code=NT%) 64.6 % 43-75 IMMATURE GRANULOCYTE % (test code=IG%) 0.6 % 0.0-2.0 LYMPHOCYTE % (test code=LY%) 24.3 % 14-44 MONOCYTE % (test code=MO%) 6.7 % 4-13 EOSINOPHIL % (test code=EO%) 3.2 % 0-6 BASOPHIL % (test code=BA%) 0.6 % 0-2 NUCLEATED RBC % (test code=NRBC%) 0.0 % 0-1.0 NEUTROPHIL # (test code=NT#) 6.31 K/mm3 2.0-7.6 IMMATURE GRANULOCYTE # (test code=IG#) 0.06 x10 3/uL 0-0.03 LYMPHOCYTE # (test code=LY#) 2.38 K/mm3 1.0-3.8 MONOCYTE # (test code=MO#) 0.66 K/mm3 0.1-0.8 EOSINOPHIL # (test code=EO#) 0.31 K/mm3 0.0-0.2 BASOPHIL # (test code=BA#) 0.06 K/mm3 0.0-0.2 NUCLEATED RBC # (test code=NRBC#) 0.00 K/mm3 0.0-0.1
[2018-08-11 21:26] LABS: Absolute Lymphocytes (CBC) 1.8 K/uL (0.7-4.9); Eosinophils % 3.3 % (0-4.4); Hematocrit 33.9 % (36.0-45.0); Lymphocytes % 26.9 % (15.3-44.8); Monocytes % 4.8 % (3.3-12.3); RBC Red Blood Cell Count 4.04 M/uL (3.86-4.86)
[2018-08-11 21:28] LABS: Protime INR 0.95
[2018-08-11 21:40] LABS: ALT/SGPT 46 U/L (12-78); AST/SGOT 36 U/L (15-37); Albumin 3.5 g/dL (3.4-5.0); Alkaline Phosphatase 154 U/L (45-117); BUN Blood Urea Nitrogen 8 mg/dL (7-18); Bicarbonate 28 mmol/L (21-32); Bilirubin Direct < 0.1 mg/dL (0-0.2); Bilirubin Total 0.2 mg/dL (0.2-1.0); Glucose Level 105 mg/dL (74-106); Magnesium 2.2 mg/dL (1.8-2.4); NT PRO-BNP 63 pg/mL (<125); Potassium 3.5 mmol/L (3.5-5.1); Protein, Total 7.3 g/dL (6.4-8.2); Sodium Level 141 mmol/L (136-145); Troponin (Emerg Dept Use Only) < 0.02 ng/mL (0.0-0.045)
[2018-08-11 21:55] LABS: Urine Blood 1+ (NEG); Urine Glucose NEGATIVE (NEG); Urine Protein NEGATIVE (NEG); Urine Specific Gravity >1.030 (1.005-1.030); Urine pH 5.5 (5.0-7.0)
[2018-08-11] MEDS ORDERED: ALBUTEROL 2.5 MG/3 ML NEB SOL ONE (22:00)
--- NOTE | 2018-08-11 22:24 | ER ---
Nurse's Notes [facility] Name: Shivani Lagunas Age: 43 yrs Sex: Female : 1975 Arrival Date: 08/11/2018 Time: 20:49 Bed 20 Private MD: Nancy Kc K Diagnosis: Shortness of breath;Other chest pain;Back pain Presentation: 08/11 21:11 Presenting complaint: Patient states: Chest tightness and shortness of breath for the aj1 past 3 days that is worse when she lays down. Patient also reports back pain. Patient reports that she recently had a heart cath but she is unsure what the result of that is. Patient also reports that she takes multiple diuretics and she has had a rhythm issue but is unable to elaborate any further on her cardiac history. States that her cath was performed by Dr. Harper. Transition of care: patient was not received from another setting of care. Onset of symptoms was August 08, 2018. Risk Assessment: Do you want to hurt yourself or someone else? Patient reports no desire to harm self or others. Initial Sepsis Screen: Does the patient meet any 2 criteria? No. Patient's initial sepsis screen is negative. Does the patient have a suspected source of infection? No. Patient's initial sepsis screen is negative. Care prior to arrival: None. 21:11 Method Of Arrival: Ambulatory aj 21:11 Acuity: ALICIA 3 aj1 Triage Assessment: 21:16 General: Appears in no apparent distress. uncomfortable, Behavior is calm, cooperative, aj1 appropriate for age. Pain: Complains of pain in chest Pain radiates to back Pain currently is 8 out of 10 on a pain scale. Quality of pain is described as tightness Is continuous. Neuro: Level of Consciousness is awake, alert, obeys commands. Cardiovascular: Reports chest pain, palpitations, shortness of breath, orthopnea Patient's skin is warm and dry. Respiratory: Airway is patent Respiratory effort is even, unlabored, Respiratory pattern is regular, symmetrical. 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 Historical: - Allergies: 21:16 Sulfa (Sulfonamide Antibiotics); aj1 - Home Meds: 21:16 propranolol 40 mg Oral tab 1 tab daily [Active]; spironolactone 25 mg Oral tab 1 tab aj1 once daily [Active]; quetiapine 50 mg oral tab 1 tab 2 times per day [Active]; tizanidine 4 mg oral cap 1 cap as needed [Active]; allopurinol 100 mg Oral tab 1 tab once daily [Active]; losartan 100 mg oral tab 1 tab once daily [Active]; duloxetine 60 mg Oral cpDR 1 cap nightly [Active]; citalopram 10 mg tab 1 tab once daily [Active]; duloxetine 60 mg oral cpDR 1 cap once daily [Active]; - PMHx: 21:16 depression, anxiety, insomnia; fatty liver; Gout; Hypertension; Anxiety; Bipolar aj1 disorder; - PSHx: 21:16 Cholecystectomy; ; heart cath; aj1 - Immunization history:: Flu vaccine is not up to date. - Social history:: Smoking status: Patient/guardian denies using tobacco. - Ebola Screening: : Patient denies travel to an Ebola-affected area in the 21 days before illness onset. Screenin:22 Abuse screen: Denies threats or abuse. Nutritional screening: No deficits noted. jd3 Tuberculosis screening: No symptoms or risk factors identified. Fall Risk IV access (20 points). Ambulatory Aid- None/Bed Rest/Nurse Assist (0 pts). Gait- Normal/Bed Rest/Wheelchair (0 pts) Mental Status- Oriented to own ability (0 pts). Total Rodriguez Fall Scale indicates No Risk (0-24 pts). Assessment: 21:20 General: Appears in no apparent distress. uncomfortable, Behavior is calm, cooperative, jd3 appropriate for age. Pain: Complains of pain in head and chest Quality of pain is described as pressure, squeezing, Pain began gradually. Neuro: Level of Consciousness is awake, alert, obeys commands, Oriented to person, place, time, situation. Cardiovascular: Reports chest pain, Heart tones present Capillary refill < 3 seconds Patient's skin is warm and dry. Rhythm is regular. Respiratory: Airway is patent Respiratory effort is even, unlabored, Respiratory pattern is regular, symmetrical, Denies shortness of breath. GI: No signs and/or symptoms were reported involving the gastrointestinal system. : No signs and/or symptoms were reported regarding the genitourinary system. EENT: No signs and/or symptoms were reported regarding the EENT system. Derm: Skin is intact, Skin is dry, Skin is normal, Skin temperature is warm. Musculoskeletal: Circulation, motion, and sensation intact. Range of motion: intact in all extremities. 21:51 Reassessment: Patient appears in no apparent distress at this time. Patient and/or jd3 family updated on plan of care and expected duration. Pain level reassessed. Patient is alert, oriented x 3, equal unlabored respirations, skin warm/dry/pink. awaiting results. 22:55 Reassessment: Patient appears in no apparent distress at this time. Patient and/or jd3 family updated on plan of care and expected duration. Pain level reassessed. Patient is alert, oriented x 3, equal unlabored respirations, skin warm/dry/pink. reports understanding of discharge instructions. Patient states feeling better. Vital Signs: 21:16 BP 157 / 87; Pulse 91; Resp 18; Temp 98.0; Pulse Ox 99% on R/A; Weight 97.52 kg (R); aj1 Height 5 ft. 6 in. (167.64 cm) (R); Pain 8/10; 21:51 BP 134 / 84; Pulse 74; Resp 16 S; Pulse Ox 99% on R/A; jd3 22:57 BP 141 / 76; Pulse 83; Resp 16 S; Pulse Ox 97% on R/A; Pain 4/10; jd3 21:16 Body Mass Index 34.70 (97.52 kg, 167.64 cm) aj1 ED Course: 20:49 Patient arrived in ED. do 20:50 Nancy Kc MD is Private Physician. do 20:52 [facility] cp 20:52 Lopez Lim MD is Attending Physician. cp 21:01 Angel Mariee, AMANDA is Primary Nurse. jd3 21:07 EKG completed in triage. Results shown to . aj1 21:11 Inserted saline lock: 20 gauge in right antecubital area, using aseptic technique. jd3 Blood collected. 21:14 Triage completed. aj1 21:16 Arm band placed on Patient Patient triaged in ER bed 20. aj1 21:23 Patient has correct armband on for positive identification. Placed in gown. Bed in low jd3 position. Call light in reach. Side rails up X2. Adult w/ patient. panel monitor on. Pulse ox on. NIBP on. 21:23 Patient maintains SpO2 saturation greater than 95% on room air. jd3 21:44 XRAY Chest (1 view) In Process Unspecified. EDMS 22:56 No provider procedures requiring assistance completed. IV discontinued, intact, jd3 bleeding controlled, No redness/swelling at site. Pressure dressing applied. Administered Medications: 21:50 Drug: Albuterol 2.5 mg Route: Inhalation; jd3 22:18 Drug: TORadol 30 mg Route: IVP; Site: right antecubital; jd3 22:57 Follow up: Response: No adverse reaction jd3 Outcome: 22:23 Discharge ordered by . kirk 22:56 Discharged to home ambulatory, with family. jd3 22:56 Condition: stable 22:56 Discharge instructions given to patient, family, Instructed on discharge instructions, follow up and referral plans. medication usage, Demonstrated understanding of instructions, follow-up care, medications, Prescriptions given X 3. 22:58 Patient left the ED. jd3 Signatures: Dispatcher [employer] EDMS Lamar Greer, RN RN aj1 Bal Sagastume PA PA cp Ogletree, Danielle do Davies, Jonathon, RN RN jd3
--- NOTE | 2018-08-11 22:24 | EDPHYS ---
Physician Documentation [facility] Name: Shivani Lagunas Age: 43 yrs Sex: Female : 1975 Arrival Date: 08/11/2018 Time: 20:49 Bed 20 Private MD: Nancy Kc K ED Physician Lopez Lim HPI: 08/11 21:04 This 43 yrs old Female presents to ER via Unassigned with complaints of Chest cp Tightness, Back Pain, Feet Swelling, Hand Swelling. 21:05 The patient or guardian reports chest pain that is located primarily in the anterior cp chest wall. The chest pain is described as tightness. 21:05 Onset: 3 day(s) ago. The pain radiates to back. Associated signs and symptoms: cp Pertinent positives: exertional shortness of breath, Pertinent negatives: abdominal pain, cough, lower extremity pain, lower extremity swelling, syncope. Duration: The patient or guardian reports a single episode, that is still ongoing, and unchanged. 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 Historical: - Allergies: 21:16 Sulfa (Sulfonamide Antibiotics); aj1 - Home Meds: 21:16 propranolol 40 mg Oral tab 1 tab daily [Active]; spironolactone 25 mg Oral tab 1 tab aj1 once daily [Active]; quetiapine 50 mg oral tab 1 tab 2 times per day [Active]; tizanidine 4 mg oral cap 1 cap as needed [Active]; allopurinol 100 mg Oral tab 1 tab once daily [Active]; losartan 100 mg oral tab 1 tab once daily [Active]; duloxetine 60 mg Oral cpDR 1 cap nightly [Active]; citalopram 10 mg tab 1 tab once daily [Active]; duloxetine 60 mg oral cpDR 1 cap once daily [Active]; - PMHx: 21:16 depression, anxiety, insomnia; fatty liver; Gout; Hypertension; Anxiety; Bipolar aj1 disorder; - PSHx: 21:16 Cholecystectomy; ; heart cath; aj1 - Immunization history:: Flu vaccine is not up to date. - Social history:: Smoking status: Patient/guardian denies using tobacco. - Ebola Screening: : Patient denies travel to an Ebola-affected area in the 21 days before illness onset. ROS: 21:10 Constitutional: Negative for body aches, chills, fever, poor PO intake. cp 21:10 Eyes: Negative for injury, pain, redness, and discharge. cp 21:10 Cardiovascular: Positive for chest tightness, Negative for edema, palpitations. cp 21:10 ENT: Negative for drainage from ear(s), ear pain, sore throat, difficulty swallowing, cp difficulty handling secretions. 21:10 Respiratory: Positive for shortness of breath, on exertion. Negative for cough, wheezing. 21:10 Abdomen/GI: Negative for abdominal pain, nausea, vomiting, and diarrhea, black/tarry stool, rectal bleeding. 21:10 Back: Positive for radiated pain, of the left subscapular area and right subscapular area, Negative for injury or acute deformity. 21:10 : Negative for urinary symptoms. 21:10 Skin: Negative for cellulitis, rash. 21:10 Neuro: Negative for altered mental status, headache, syncope, weakness. 21:10 All other systems are negative. Exam: 21:15 ECG was reviewed by the Attending Physician. cp 21:17 Constitutional: The patient appears in no acute distress, alert, awake, cp non-diaphoretic, non-toxic, well developed, well nourished. 21:17 Head/Face: Normocephalic, atraumatic. cp 21:17 Eyes: Periorbital structures: appear normal, Conjunctiva: normal, no exudate, no injection, Sclera: no appreciated abnormality, Lids and lashes: appear normal, bilaterally. 21:17 ENT: External ear(s): are unremarkable, Ear canal(s): are normal, clear, TM's: dullness, bilaterally, Nose: is normal, Mouth: Lips: moist, Oral mucosa: pink and intact, moist, Posterior pharynx: is normal, airway is patent, no erythema, no exudate. 21:17 Neck: ROM/movement: is normal, is supple, without pain, no range of motions limitations, no meningismus, no nuchal rigidity. 21:17 Chest/axilla: Inspection: normal, Palpation: is normal, no crepitus, no tenderness. 21:17 Cardiovascular: Rate: normal, Rhythm: regular, Edema: is not appreciated, JVD: is not appreciated. 21:17 Respiratory: the patient does not display signs of respiratory distress, Respirations: normal, no use of accessory muscles, no retractions, no splinting, no tachypnea, labored breathing, is not present, Breath sounds: are clear throughout, no decreased breath sounds, no stridor, no wheezing. 21:17 Abdomen/GI: Inspection: abdomen appears normal, Bowel sounds: active, all quadrants, Palpation: abdomen is soft and non-tender, in all quadrants, rebound tenderness, is not appreciated, voluntary guarding, is not appreciated, involuntary guarding, is not appreciated. 21:17 Back: pain, that is mild, of the mid back area, ROM is normal. 21:17 Skin: no rash present. 21:17 Neuro: Orientation: to person, place \T\ time. Mentation: is normal, Motor: moves all fours, strength is normal. Vital Signs: 21:16 BP 157 / 87; Pulse 91; Resp 18; Temp 98.0; Pulse Ox 99% on R/A; Weight 97.52 kg (R); aj1 Height 5 ft. 6 in. (167.64 cm) (R); Pain 8/10; 21:51 BP 134 / 84; Pulse 74; Resp 16 S; Pulse Ox 99% on R/A; jd3 22:57 BP 141 / 76; Pulse 83; Resp 16 S; Pulse Ox 97% on R/A; Pain 4/10; jd3 21:16 Body Mass Index 34.70 (97.52 kg, 167.64 cm) aj1 MDM: 20:52 Patient medically screened. 22:22 Data reviewed: vital signs, nurses notes, lab test result(s), EKG, radiologic studies, cp plain films. 22:22 Differential diagnosis: abnormal EKG, acute myocardial infarction, acute pericarditis, cp chest wall pain, costochondritis, pneumonia, pneumothorax, pulmonary embolus, stable angina, unstable angina. Test interpretation: by ED physician or midlevel provider: ECG, chest xray negative for infiltrates. Counseling: I had a detailed discussion with the patient and/or guardian regarding: the historical points, exam findings, and any diagnostic results supporting the discharge/admit diagnosis, lab results, radiology results, the need for outpatient follow up, a family practitioner, to return to the emergency department if symptoms worsen or persist or if there are any questions or concerns that arise at home. 08/11 20:58 Order name: Basic Metabolic Panel; Complete Time: 21:42 cp 30 21:42 Interpretation: Normal except: GFR 79. 08/11 20:58 Order name: CBC with Diff; Complete Time: 21:37 08/11 21:37 Interpretation: Normal except: HGB 11.4; HCT 33.9. 08/11 20:58 Order name: LFT's; Complete Time: 21:42 30 21:42 Interpretation: Normal except: ALK 154; GLOB 3.8; A/G 0.9. 08/11 20:58 Order name: Magnesium; Complete Time: 21:42 cp 08/11 20:58 Order name: NT PRO-BNP; Complete Time: 21:42 cp 08/11 21:43 Interpretation: Within normal limits: NT PRO-BNP 63. 08/11 20:58 Order name: PT-INR; Complete Time: 21:37 08/11 20:58 Order name: Troponin (emerg Dept Use Only); Complete Time: 21:42 08/11 21:42 Interpretation: Reviewed. 08/11 20:58 Order name: XRAY Chest (1 view) 08/11 20:58 Order name: EKG; Complete Time: 21:00 08/11 20:58 Order name: Cardiac monitoring; Complete Time: 21:20 08/11 21:52 Order name: Urine Dipstick--Ancillary (enter results); Complete Time: 22:10 [facility] 08/11 21:52 Order name: Urine --Ancillary (enter results); Complete Time: 22:10 [facility] 08/11 22:10 Interpretation: Reviewed. 08/11 20:58 Order name: EKG - Nurse/Tech; Complete Time: 21:20 08/11 20:58 Order name: IV Saline Lock; Complete Time: 21:20 08/11 20:58 Order name: Labs collected and sent; Complete Time: 21:20 08/11 20:58 Order name: O2 Per Protocol; Complete Time: 21:20 08/11 20:58 Order name: O2 Sat Monitoring; Complete Time: 21:20 cp 30 20:59 Order name: Urine Dipstick-Ancillary (obtain specimen); Complete Time: 22:14 06/30 20:59 Order name: Urine Test (obtain specimen); Complete Time: 22:15 cp EC:15 Rate is 76 beats/min. Rhythm is regular. MA interval is normal. QRS interval is normal. cp QT interval is normal. Interpreted by me. Reviewed by me. Administered Medications: 21:50 Drug: Albuterol 2.5 mg Route: Inhalation; jd3 22:18 Drug: TORadol 30 mg Route: IVP; Site: right antecubital; jd3 22:57 Follow up: Response: No adverse reaction jd3 Disposition: 08/11/18 22:23 Discharged to Home. Impression: Shortness of breath, Other chest pain, Back pain. - Condition is Stable. - Discharge Instructions: Nonspecific Chest Pain, Shortness of Breath, Aspirin and Your Heart. - Prescriptions for Ibuprofen 800 mg Oral Tablet - take 1 tablet by ORAL route every 8 hours As needed take with food; 30 tablet. Cyclobenzaprine 10 mg Oral Tablet - take 1 tablet by ORAL route every 8 hours As needed no driving while taking medication; 20 tablet. Albuterol Sulfate 90 mcg/actuation - inhale 1-2 puff by INHALATION route every 4-6 hours; 1 Inhaler. - Medication Reconciliation Form, Thank You Letter, Antibiotic Education, Prescription Opioid Use form. - Follow up: Private Physician; When: 1 - 2 days; Reason: Recheck today's complaints. - Problem is new. - Symptoms have improved. Signatures: Dispatcher [employer] EDMS Lamar Greer RN RN aj1 Bal Sagastume PA PA cp Davies, Jonathon, RN RN jd3 Corrections: (The following items were deleted from the chart) 22:58 22:23 08/11/2018 22:23 Discharged to Home. Impression: Shortness of breath; Other chest jd3 pain; Back pain. Condition is Stable. Forms are Medication Reconciliation Form, Thank You Letter, Antibiotic Education, Prescription Opioid Use. Follow up: Private Physician; When: 1 - 2 days; Reason: Recheck today's complaints. Problem is new. Symptoms have improved. cp
[2018-08-11] MEDS ORDERED: KETOROLAC 30 MG/ML INJ ONE (22:31)
--- NOTE | 2018-08-12 06:36 | EKG ---
Test Date: 2018-08-11 Test Time: 21:06:43 Cost Report Clerk: DONELL MEASUREMENT RESULTS: Intervals: Rate: 73 AR: 156 QRSD: 98 QT: 416 QTc: 458 [place]: P: 42 AR: 156 QRS: 7 T: 3 INTERPRETIVE STATEMENTS: Normal sinus rhythm Minimal voltage criteria for LVH, may be normal variant Cannot rule out Anterior infarct, age undetermined Abnormal ECG Compared to ECG 03/12/2018 10:36:12 Left ventricular hypertrophy now present Myocardial infarct finding still present Electronically Signed On 08-12-18 06:36:11 CDT by Lonnie Laurent
--- NOTE | 2018-08-12 08:06 | RAD REPORT ---
EXAM DESCRIPTION: RAD - Chest Single View - 08/11/2018 9:43 pm CLINICAL HISTORY: Chest pain, chest tightness, shortness of breath COMPARISON: February 2018 TECHNIQUE: AP portable chest image was obtained 2133 hours . FINDINGS: Lung volumes are low. No peripheral mass or consolidation. No significant failure or volum e overload seen. Heart and vasculature are normal. No measurable pleural effusion and no pneumothorax . No acute bony abnormality seen. No acute aortic findings suspected. IMPRESSION: No acute cardiopulmonary process. No suspicious change from comparison.
--- NOTE | 2018-08-12 19:45 | EKG ---
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
== END 2018-08-11 22:58 | disposition home or self-care (01) ==
LOC: ER 20:44
DX: R07.89 Other chest pain (principal); R06.02 Shortness of breath; M54.9 Dorsalgia, unspecified; Z88.2 Allergy status to sulfonamides; F32.9 Major depressive disorder, single episode, unspecified; F41.9 Anxiety disorder, unspecified; I10 Essential (primary) hypertension; F31.9 Bipolar disorder, unspecified
CPT/HCPCS: 36415; 71045; 80048; 80076; 81003; 81025; 83735; 83880; 84484; 85025; 85610; 93005; 96374; 99285

== ENCOUNTER 2018-09-24 22:14 | Emergency (ER) | payer SELFPAY ==
--- OUTSIDE RECORDS SUMMARY | 2018-09-24 22:17 | XMS REPORT ---
:1975 [facility] [address] [place] [address] Care Team Providers Name Role Phone Unavailable [...] HIGH.........160-189 mg/dL VERY HIGH.........>/=190 mg/dL Comments to [facility]: ADD TO AM LABSLIPID PROFILE (CORONARY RISK)2018-07-20 07:17:00 Test Item Value Reference Range Comments TRIGLYCERIDES (test code=TRIG) 143 MG/DL TRIGLYCERIDES REFERENCE RANGE:Normal: <150 mg/dLBorderline High: 150-199 mg/dLHigh: 200-499 mg/dLVery High: >=500 mg/dL CHOLESTEROL (test code=CHOL) 190 MG/DL <200 HDL CHOLESTEROL (test 41 MG/DL 40-59 code=HDL) LIPOPROTEIN LDL (test MG/DL 0-99 code=LDL) Comments to [facility]: ADD TO AM LABSPROTHROMBIN [id number] 06:24:00 Test Item Value Reference Range Comments [...] systemic embolism. 3.0 - 4.5 Comments to [facility]: NURSE WILL BRING SPECIMEN TO LABPTT [id number] 06:24:00 Test Item Value Reference Range Comments PTT ACTIVATED (test code=APTT) 29.3 SECONDS 22.0-33.0 Comments to [facility]: NURSE WILL BRING SPECIMEN TO LABBASIC METABOLIC [id number] 06:13:00 Test Item Value Reference Range Comments [...] (test code=CA) 9.6 MG/DL 8.4-10.2 Comments to [facility]: NURSE WILL BRING SPECIMEN TO LAB Comments to [facility]: NURSE WILL BRING SPECIMEN TO [id number] 06:13:00 Test Item Value Reference Range Comments MAGNESIUM (test code=MAG) 2.2 MG/DL 1.6-2.3 Comments to [facility]: NURSE WILL BRING SPECIMEN TO LAB Comments to [facility]: NURSE WILL BRING SPECIMEN TO LABCBC W/AUTO [id number] 06:02:00 Test Item Value Reference Range Comments [...]
[2018-09-24] MEDS ORDERED: HYDROCODONE/APAP 5/325 MG TAB ONE (22:49)
[2018-09-24] MEDS ORDERED: IBUPROFEN 400 MG TAB ONE (22:49)
[2018-09-24 22:53] LABS: Urine Blood 2+ (NEG); Urine Glucose NEGATIVE (NEG); Urine Protein NEGATIVE (NEG); Urine Specific Gravity 1.025 (1.005-1.030); Urine pH 5.5 (5.0-7.0)
[2018-09-24 22:56] LABS: Urine Bacteria <20 /HPF (<20); Urine Culture Reflex Order NOT NEEDED
[2018-09-25 00:05] LABS: Absolute Lymphocytes (CBC) 1.9 K/uL (0.7-4.9); Basophils % 0.5 % (0-1.3); Hematocrit 31.7 % (36.0-45.0); MPV 10.2 fL (7.6-11.3); RBC Red Blood Cell Count 3.76 M/uL (3.86-4.86)
[2018-09-25 00:28] LABS: Potassium 3.5 mmol/L (3.5-5.1)
--- NOTE | 2018-09-25 00:39 | ER ---
Nurse's Notes [facility] Name: Shivani Lagunas Age: 43 yrs Sex: Female : 1975 Arrival Date: 09/24/2018 Time: 22:18 Bed 5 Private MD: Diagnosis: Edema, unspecified Presentation: 09/24 22:20 Presenting complaint: Patient states: "my feet, hands, and face are swollen for a jd3 couple of days. my feet just keep getting worse and now they hurt. My neck has also has been very stiff and I have flu like symptoms that started this morning.". Transition of care: patient was not received from another setting of care. Onset of symptoms was September 24, 2018. Risk Assessment: Do you want to hurt yourself or someone else? Patient reports no desire to harm self or others. Initial Sepsis Screen: Does the patient meet any 2 criteria? No. Patient's initial sepsis screen is negative. Does the patient have a suspected source of infection? No. Patient's initial sepsis screen is negative. 22:20 Method Of Arrival: Ambulatory jd3 22:20 Acuity: ALICIA 3 jd3 22:20 Care prior to arrival: None. 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: 22:24 LMP 09/24/2018 jd3 Historical: - Allergies: 22:24 Sulfa (Sulfonamide Antibiotics); jd3 - Home Meds: 22:24 propranolol 160 mg oral Cs24 0.5 cap twice a day [Active]; spironolactone 25 mg Oral jd3 tab 1 tab once daily [Active]; duloxetine 60 mg Oral cpDR 1 cap nightly [Active]; allopurinol 100 mg Oral tab 1 tab once daily [Active]; duloxetine 60 mg Oral cpDR 1 cap once daily [Active]; citalopram 10 mg tab 1 tab once daily [Active]; losartan 100 mg Oral tab 1 tab once daily [Active]; quetiapine 50 mg Oral tab 1 tab 2 times per day [Active]; tizanidine 4 mg Oral cap 1 cap as needed [Active]; - PMHx: 22:24 Anxiety; Hypertension; Bipolar disorder; depression, anxiety, insomnia; fatty liver; jd3 Gout; High Cholesterol; - PSHx: 22:24 ; Cholecystectomy; heart cath; jd3 - Immunization history:: Adult Immunizations up to date. - Social history:: Smoking status: Patient/guardian denies using tobacco. - Ebola Screening: : Patient negative for fever greater than or equal to 101.5 degrees Fahrenheit, and additional compatible Ebola Virus Disease symptoms. Screenin:47 Abuse screen: Denies threats or abuse. Denies injuries from another. Nutritional rr5 screening: No deficits noted. Tuberculosis screening: No symptoms or risk factors identified. Fall Risk None identified. Total Rodriguez Fall Scale indicates No Risk (0-24 pts). Assessment: 22:20 General: Appears in no apparent distress. uncomfortable, Behavior is calm, cooperative, rr5 appropriate for age. 22:20 Pain: Complains of pain in body Pain does not radiate. Pain currently is 8 out of 10 on rr5 a pain scale. Quality of pain is described as aching, Pain began gradually, Is intermittent. Neuro: Level of Consciousness is awake, alert, obeys commands, Oriented to person, place, time, situation, Appropriate for age. Cardiovascular: Reports Capillary refill < 3 seconds Patient's skin is warm and dry. Pulses are all present. Edema is 1+ to right and left feet. Respiratory: Reports flu like symptoms Airway is patent Respiratory effort is even, unlabored, Respiratory pattern is regular, symmetrical. GI: No signs and/or symptoms were reported involving the gastrointestinal system. : Urine is clear, Reports I am taking water pill. EENT: No signs and/or symptoms were reported regarding the EENT system. Derm: Skin is intact, Skin temperature is warm Wound noted right leg and left leg Wound is abrasion. Musculoskeletal: Circulation, motion, and sensation intact. Capillary refill < 3 seconds, Swelling present in face, right arm, left arm, right leg and left leg Reports pain in right leg and left leg feels like its getting tight my legs. 23:30 Reassessment: Patient appears in no apparent distress at this time. Patient and/or rr5 family updated on plan of care and expected duration. Pain level reassessed. Patient is alert, oriented x 3, equal unlabored respirations, skin warm/dry/pink. awaiting for results. 09/25 00:41 Reassessment: Patient appears in no apparent distress at this time. Patient is alert, rr5 oriented x 3, equal unlabored respirations, skin warm/dry/pink. discharge instruction given and explained without complaints made, verbalized understanding. Patient states feeling better. Patient states symptoms have improved. Vital Signs: 09/24 22:24 BP 141 / 92; Pulse 96; Resp 17 S; Temp 97.8(TE); Pulse Ox 98% on R/A; Weight 93.89 kg jd3 (R); Height 5 ft. 6 in. (167.64 cm) (R); Pain 8/10; 23:30 BP 131 / 74; Pulse 75; Resp 15; Pulse Ox 98% on R/A; rr5 09/25 00:30 BP 138 / 72; Pulse 65; Resp 17; Temp 97.5; Pulse Ox 100% on R/A; rr5 09/24 22:24 Body Mass Index 33.41 (93.89 kg, 167.64 cm) jd3 ED Course: 09/24 22:18 Patient arrived in ED. cl3 22:22 Triage completed. jd3 22:25 Arm band placed on. jd3 22:26 Anoop Zheng RN is Primary Nurse. rr5 22:27 Vani Lara FNP-C is PHCP. snw 22:27 Lopez Lim MD is Attending Physician. snw 22:47 Patient has correct armband on for positive identification. Bed in low position. Call rr5 light in reach. Pulse ox on. NIBP on. 23:34 Extrem Venous W Compression Diego US In Process Unspecified. EDMS 23:45 Inserted saline lock: 20 gauge in right forearm, using aseptic technique. Blood rr5 collected. 23:50 Elevated leg. rr5 09/25 00:43 No provider procedures requiring assistance completed. IV discontinued, intact, rr5 bleeding controlled, No redness/swelling at site. Pressure dressing applied. Administered Medications: 09/24 22:52 Drug: [place] 5 mg-325 mg 1 tabs Route: PO; rr5 22:52 Follow up: Response: RASS: Alert and Calm (0); upon administration rr5 23:33 Follow up: Response: No adverse reaction; RASS: Alert and Calm (0) rr5 22:52 Drug: Motrin 400 mg Route: PO; rr5 23:33 Follow up: Response: No adverse reaction rr5 Intake: Outcome: 09/25 00:33 Discharge ordered by . snw 00:43 Discharged to home ambulatory, with family. rr5 00:43 Condition: stable 00:43 Discharge instructions given to patient, family, Instructed on discharge instructions, follow up and referral plans. Demonstrated understanding of instructions, follow-up care. 00:44 Patient left the ED. rr5 Signatures: Dispatcher [employer] EDMS Vani Lara, ABAD-C [employer]ODU[employer] DEMONSTRATOR-Csnw Angel Mariee RN RN jd3 Anoop Zheng RN RN rr5 Shannan Kearney3
--- NOTE | 2018-09-25 00:41 | EDPHYS ---
Physician Documentation [facility] Name: Shivani Lagunas Age: 43 yrs Sex: Female : 1975 Arrival Date: 09/24/2018 Time: 22:18 Bed 5 Private MD: ED Physician Lopez Lim HPI: 09/24 23:57 This 43 yrs old Female presents to ER via Ambulatory with complaints of Facial snw Swelling, Bodyache. 23:57 pt states her manager icu has gotten her blood pressure under control with Losartan, snw Spironolactone, and Lasix. Pt just returned from [place] (driving), states she feels fatigued and is swelling to bilateral lower extremities.. Onset: The symptoms/episode began/occurred acutely. Severity of symptoms: At their worst the symptoms were moderate in the emergency department the symptoms are unchanged. It is unknown whether or not the patient has had similar symptoms in the past. The patient has been recently seen by a physician:. 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: 22:24 LMP 09/24/2018 jd3 Historical: - Allergies: 22:24 Sulfa (Sulfonamide Antibiotics); jd3 - Home Meds: 22:24 propranolol 160 mg oral Cs24 0.5 cap twice a day [Active]; spironolactone 25 mg Oral jd3 tab 1 tab once daily [Active]; duloxetine 60 mg Oral cpDR 1 cap nightly [Active]; allopurinol 100 mg Oral tab 1 tab once daily [Active]; duloxetine 60 mg Oral cpDR 1 cap once daily [Active]; citalopram 10 mg tab 1 tab once daily [Active]; losartan 100 mg Oral tab 1 tab once daily [Active]; quetiapine 50 mg Oral tab 1 tab 2 times per day [Active]; tizanidine 4 mg Oral cap 1 cap as needed [Active]; - PMHx: 22:24 Anxiety; Hypertension; Bipolar disorder; depression, anxiety, insomnia; fatty liver; jd3 Gout; High Cholesterol; - PSHx: 22:24 ; Cholecystectomy; heart cath; jd3 - Immunization history:: Adult Immunizations up to date. - Social history:: Smoking status: Patient/guardian denies using tobacco. - Ebola Screening: : Patient negative for fever greater than or equal to 101.5 degrees Fahrenheit, and additional compatible Ebola Virus Disease symptoms. ROS: 23:46 Constitutional: Negative for fever, chills, and weight loss, Eyes: Negative for injury, snw pain, redness, and discharge, ENT: Negative for injury, pain, and discharge, Neck: Negative for injury and swelling, + anterior lymph node tenderness Cardiovascular: Negative for chest pain, palpitations, and edema, Respiratory: Negative for shortness of breath, cough, wheezing, and pleuritic chest pain, Abdomen/GI: Negative for abdominal pain, nausea, vomiting, diarrhea, and constipation, Back: Negative for injury and pain, : Negative for injury, bleeding, discharge, and swelling, Skin: Negative for injury, rash, and discoloration, Neuro: Negative for headache, weakness, numbness, tingling, and seizure. 23:46 MS/extremity: Positive for pain, swelling, of the right leg and left leg. Exam: 23:43 Constitutional: This is a well developed, well nourished patient who is awake, alert, snw and in no acute distress. Head/Face: Normocephalic, atraumatic. Eyes: Pupils equal round and reactive to light, extra-ocular motions intact. Lids and lashes normal. Conjunctiva and sclera are non-icteric and not injected. Cornea within normal limits. Periorbital areas with no swelling, redness, or edema. ENT: Nares patent. No nasal discharge, no septal abnormalities noted. Tympanic membranes are normal and external auditory canals are clear. Oropharynx with no redness, swelling, or masses, exudates, or evidence of obstruction, uvula midline. Mucous membranes moist. Neck: Trachea midline, no thyromegaly or masses palpated, and no cervical lymphadenopathy. Supple, full range of motion without nuchal rigidity, or vertebral point tenderness. No Meningismus. Chest/axilla: Normal chest wall appearance and motion. Nontender with no deformity. No lesions are appreciated. Cardiovascular: Regular rate and rhythm with a normal S1 and S2. No gallops, murmurs, or rubs. Normal PMI, no JVD. No pulse deficits. + pedal edema Respiratory: Lungs have equal breath sounds bilaterally, clear to auscultation and percussion. No rales, rhonchi or wheezes noted. No increased work of breathing, no retractions or nasal flaring. Abdomen/GI: Soft, non-tender, with normal bowel sounds. No distension or tympany. No guarding or rebound. No evidence of tenderness throughout. Back: No spinal tenderness. No costovertebral tenderness. Full range of motion. Skin: Warm, dry with normal turgor. Normal color with no rashes, no lesions, and no evidence of cellulitis. Neuro: Awake and alert, GCS 15, oriented to person, place, time, and situation. Cranial nerves II-XII grossly intact. Motor strength 5/5 in all extremities. Sensory grossly intact. Cerebellar exam normal. Normal gait. Psych: Awake, alert, with orientation to person, place and time. Behavior, mood, and affect are within normal limits. 23:43 Musculoskeletal/extremity: Extremities: grossly normal except: bilateral foot pain, Circulation is intact in all extremities. Vital Signs: 22:24 BP 141 / 92; Pulse 96; Resp 17 S; Temp 97.8(TE); Pulse Ox 98% on R/A; Weight 93.89 kg jd3 (R); Height 5 ft. 6 in. (167.64 cm) (R); Pain 8/10; 23:30 BP 131 / 74; Pulse 75; Resp 15; Pulse Ox 98% on R/A; rr5 09/25 00:30 BP 138 / 72; Pulse 65; Resp 17; Temp 97.5; Pulse Ox 100% on R/A; rr5 09/24 22:24 Body Mass Index 33.41 (93.89 kg, 167.64 cm) jd3 MDM: 09/24 22:33 Patient medically screened. snw 09/25 00:34 Data reviewed: vital signs, nurses notes. Data interpreted: Pulse oximetry: on room air snw is 98 %. Interpretation: normal. Counseling: I had a detailed discussion with the patient and/or guardian regarding: the historical points, exam findings, and any diagnostic results supporting the discharge/admit diagnosis, lab results, radiology results, the need for outpatient follow up, to return to the emergency department if symptoms worsen or persist or if there are any questions or concerns that arise at home. Special discussion: Based on the history and exam findings, there is no indication for further emergent testing or inpatient evaluation. I discussed with the patient/guardian the need to see the manager icu for further evaluation of the symptoms. I discussed with the patient/guardian the need to see the primary care provider for further evaluation of the symptoms. 09/24 22:29 Order name: Urine Culture snw 09/24 22:29 Order name: Urine Microscopic Only; Complete Time: 23:00 snw 09/24 22:49 Order name: Urine Dipstick--Ancillary (enter results); Complete Time: 23:00 ag4 09/24 22:49 Order name: Urine --Ancillary (enter results); Complete Time: 23:00 ag4 09/24 23:38 Order name: CBC with Diff; Complete Time: 00:08 snw 09/24 23:38 Order name: Chem 7; Complete Time: 00:29 snw 09/24 22:29 Order name: Urine Dipstick-Ancillary (obtain specimen); Complete Time: 22:42 snw 09/24 22:48 Order name: Extrem Venous W Compression Diego US snw 09/24 23:38 Order name: Misc. Order: elevate foot of stretcher to elevate legs; Complete Time: 23:49snw Administered Medications: 09/24 22:52 Drug: [place] 5 mg-325 mg 1 tabs Route: PO; rr5 22:52 Follow up: Response: RASS: Alert and Calm (0); upon administration rr5 23:33 Follow up: Response: No adverse reaction; RASS: Alert and Calm (0) rr5 22:52 Drug: Motrin 400 mg Route: PO; rr5 23:33 Follow up: Response: No adverse reaction rr5 Disposition: 09/25 03:23 Co-signature as Attending Physician, Lopez Lim MD. Disposition: 09/25/18 00:33 Discharged to Home. Impression: Edema, unspecified. - Condition is Stable. - Discharge Instructions: Edema, Rehydration, Adult, Peripheral Edema. - Medication Reconciliation Form, Thank You Letter, Antibiotic Education, Prescription Opioid Use form. - Follow up: Private Physician; When: 1 - 2 days; Reason: Recheck today's complaints, Continuance of care, Re-evaluation by your physician. Follow up: Emergency Department; When: As needed; Reason: Worsening of condition. - Notes: no added salt, elevate lower extremities Signatures: Dispatcher [employer] EDMS Vani Lara, ABAD-C ECHOCARDIOGRAPH TECHNICIAN-Csnw Lopez Lim MD MD gs Davies, Jonathon RN RN jd3 Anoop Zheng RN RN rr5 Corrections: (The following items were deleted from the chart) 00:44 00:33 09/25/2018 00:33 Discharged to Home. Impression: Edema, unspecified. Condition is rr5 Stable. Forms are Medication Reconciliation Form, Thank You Letter, Antibiotic Education, Prescription Opioid Use. Follow up: Private Physician; When: 1 - 2 days; Reason: Recheck today's complaints, Continuance of care, Re-evaluation by your physician. Follow up: Emergency Department; When: As needed; Reason: Worsening of condition. snw
--- NOTE | 2018-09-25 08:05 | RAD REPORT ---
EXAM DESCRIPTION: US - Extrem Venous W Compress Diego - 09/24/2018 11:34 pm CLINICAL HISTORY: Pain;Swelling Bilateral leg edema and swelling. COMPARISON: No comparisons TECHNIQUE: Real-time sonographic interrogation of the left and right lower extremity deep venous sys tems was performed. FINDINGS: Normal compressibility, flow augmentation, phasic flow and spontaneous flow is identified in both the left and right lower extremity deep venous systems. IMPRESSION: No sonographic evidence of left or right lower extremity deep venous thrombosis.
== END 2018-09-25 00:44 | disposition home or self-care (01) ==
LOC: ER 22:14
DX: R60.9 Edema, unspecified (principal); I10 Essential (primary) hypertension; F41.9 Anxiety disorder, unspecified; F31.9 Bipolar disorder, unspecified; E78.00 Pure hypercholesterolemia, unspecified; Z88.2 Allergy status to sulfonamides
CPT/HCPCS: 36415; 80048; 81003; 81015; 81025; 85025; 87086; 87088; 93970; 99284

== ENCOUNTER 2018-10-07 08:06 | Emergency (ER) | payer SELFPAY ==
--- OUTSIDE RECORDS SUMMARY | 2018-10-07 08:11 | XMS REPORT ---
:1975 Author Organization [facility] Address [address] [place] [address] [address] [place] [address] Care Team Providers Name Role Phone Unavailable [...] HIGH.........160-189 mg/dL VERY HIGH.........>/=190 mg/dL Comments to [employer] Scm Consultant: ADD TO AM LABSLIPID PROFILE (CORONARY RISK)2018-07-20 07:17:00 Test Item Value Reference Range Comments TRIGLYCERIDES (test code=TRIG) 143 MG/DL TRIGLYCERIDES REFERENCE RANGE:Normal: <150 mg/dLBorderline High: 150-199 mg/dLHigh: 200-499 mg/dLVery High: >=500 mg/dL CHOLESTEROL (test code=CHOL) 190 MG/DL <200 HDL CHOLESTEROL (test 41 MG/DL 40-59 code=HDL) LIPOPROTEIN LDL (test MG/DL 0-99 code=LDL) Comments to [employer] Scm Consultant: ADD TO AM LABSPROTHROMBIN [id number] 06:24:00 Test Item Value Reference Range Comments [...] systemic embolism. 3.0 - 4.5 Comments to [employer] Consultant: NURSE WILL BRING SPECIMEN TO LABPTT [id number] 06:24:00 Test Item Value Reference Range Comments PTT ACTIVATED (test code=APTT) 29.3 SECONDS 22.0-33.0 Comments to [employer] Sc[employer] Consultant: NURSE WILL BRING SPECIMEN TO LABBASIC METABOLIC [id number] 06:13:00 Test Item Value Reference Range Comments [...] (test code=CA) 9.6 MG/DL 8.4-10.2 Comments to [employer] Sc[employer] Consultant: NURSE WILL BRING SPECIMEN TO LAB Comments to [employer] Consultant: NURSE WILL BRING SPECIMEN TO [id number] 06:13:00 Test Item Value Reference Range Comments MAGNESIUM (test code=MAG) 2.2 MG/DL 1.6-2.3 Comments to [employer] Sc[employer] Consultant: NURSE WILL BRING SPECIMEN TO LAB Comments to [employer] Sc[employer] Consultant: NURSE WILL BRING SPECIMEN TO LABCBC W/AUTO [id number] 06:02:00 Test Item Value Reference Range Comments [...]
[2018-10-07 09:13] LABS: Absolute Lymphocytes (CBC) 1.6 K/uL (0.7-4.9); Basophils % 0.9 % (0-1.3); Hematocrit 36.1 % (36.0-45.0); Lymphocytes % 25.1 % (15.3-44.8); MPV 9.9 fL (7.6-11.3); RBC Red Blood Cell Count 4.29 M/uL (3.86-4.86)
[2018-10-07 09:17] LABS: Protime INR 0.92
[2018-10-07 09:31] LABS: ALT/SGPT 38 U/L (12-78); AST/SGOT 11 U/L (15-37); Albumin 3.5 g/dL (3.4-5.0); Alkaline Phosphatase 141 U/L (45-117); BUN Blood Urea Nitrogen 12 mg/dL (7-18); Bicarbonate 26 mmol/L (21-32); Bilirubin Direct < 0.1 mg/dL (0-0.2); Bilirubin Total 0.2 mg/dL (0.2-1.0); Glucose Level 102 mg/dL (74-106); Potassium 3.8 mmol/L (3.5-5.1); Protein, Total 7.5 g/dL (6.4-8.2); Sodium Level 142 mmol/L (136-145)
--- NOTE | 2018-10-07 09:40 | ER ---
Nurse's Notes [facility] Name: Shivani Lagunas Age: 43 yrs Sex: Female : 1975 Arrival Date: 10/07/2018 Time: 08:08 Bed 17 Private MD: Diagnosis: Major depressive disorder, recurrent;Bipolar disorder;Suicidal ideations;Encounter for general adult medical examination-medical refill Presentation: 10/07 08:42 Presenting complaint: Patient states: usually takes Cymbalta, the clinic she goes to no iw longer can prescribed it, has been off Cymbalta X 2 weeks, has been having body aches, not sleeping X 1 week, also is having suicidal thoughts and suicidal dreams, feels scared when alone, thinks there is someone in her house, she also has thoughts that she would kill her loved ones if she were to kill herself, suicidal thought occur when she's alone, has hx of depression and bipolar, previous hx of SI a year ago when she was going through marital problems, has never thought of harming anyone else. Transition of care: patient was not received from another setting of care. Onset of symptoms was October 01, 2018. Risk Assessment: Do you want to hurt yourself or someone else? Patient reports desire/thoughts of hurting themselves or someone else. Provider notified. Initial Sepsis Screen: Does the patient meet any 2 criteria? No. Patient's initial sepsis screen is negative. Does the patient have a suspected source of infection? No. Patient's initial sepsis screen is negative. Care prior to arrival: None. 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 iw Historical: - Allergies: 08:48 Sulfa (Sulfonamide Antibiotics); iw - Home Meds: 08:48 allopurinol 100 mg Oral tab 1 tab once daily [Active]; duloxetine 60 mg Oral cpDR 1 cap iw nightly [Active]; citalopram 10 mg tab 1 tab once daily [Active]; losartan 100 mg Oral tab 1 tab once daily [Active]; propranolol 160 mg Oral tab 0.5 cap twice a day [Active]; quetiapine 50 mg Oral tab 1 tab 2 times per day [Active]; tizanidine 4 mg Oral cap 1 cap as needed [Active]; spironolactone 25 mg Oral tab 1 tab once daily [Active]; furosemide 40 mg oral tab once daily [Active]; diclofenac sodium 75 mg oral TbEC 1 tab 2 times per day [Active]; - PMHx: 08:48 Anxiety; Bipolar disorder; depression, anxiety, insomnia; fatty liver; Gout; High iw Cholesterol; Hypertension; - PSHx: 08:48 ; Cholecystectomy; iw - Immunization history:: Adult Immunizations not up to date. - Social history:: Smoking status: Patient/guardian denies using tobacco. - Ebola Screening: : Patient negative for fever greater than or equal to 101.5 degrees Fahrenheit, and additional compatible Ebola Virus Disease symptoms Patient denies exposure to infectious person Patient denies travel to an Ebola-affected area in the 21 days before illness onset No symptoms or risks identified at this time. - Family history:: not pertinent. Screenin:06 Abuse screen: Denies threats or abuse. Denies injuries from another. Nutritional jl7 screening: No deficits noted. Tuberculosis screening: No symptoms or risk factors identified. Fall Risk IV access (20 points). Total Rodriguez Fall Scale indicates No Risk (0-24 pts). Assessment: 09:06 General: Appears in no apparent distress. uncomfortable, Behavior is calm, cooperative, jl7 appropriate for age. Pain: Complains of pain in all over x 1 week Quality of pain is described as aching. Neuro: Cardiovascular: Patient's skin is warm and dry. Respiratory: Airway is patent Respiratory effort is even, unlabored, Respiratory pattern is regular, symmetrical. GI: No signs and/or symptoms were reported involving the gastrointestinal system. : No signs and/or symptoms were reported regarding the genitourinary system. EENT: No signs and/or symptoms were reported regarding the EENT system. Derm: Skin is pink, warm \T\ dry. Musculoskeletal: No signs and/or symptoms reported regarding the musculoskeletal system. 09:48 Reassessment: Pt will be discharged once pharmacy delivers medication. jl7 Psych: 09:08 Subjective: Patient's mood is sad, Delusions are denied, Hallucinations are auditory, jl7 Having thoughts of suicide. Denies suicidal plan. Subjective: Having thoughts of homicide. Denies plan. Objective: Patient is cooperative, Speech is normal, Affect is appropriate. Interventions: Removed personal items and placed in bag. Patient placed in hospital gown. Searched person for dangerous items. Urine collected and sent for urine drug test. Pt belongings given to daughter. Suicide Risk Assessment: Sad Person Scale: Sex of patient: Female: Score 0 points. Age of patient: Score 0 point if patient falls outside of specified age parameters. Depression: Score 1 point if signs of depression are present. Previous Attempt: Score 0 point if patient has not previously attempted suicide. Substance Abuse: Score 0 point if patient does not abuse alcohol or drugs. Rational Thinking: Score 0 point if patient has rational thinking. Social Support: Score 0 if social support is present/available. Organized Plan: Score 0 if patient did not have an organized plan in place. Relationship: Score 0 point if patient has a spouse or domestic partner. Chronic Sickness: Score 1 point if patient has illness, chronic, debilitating, or severe. TOTAL POINTS: If total points are 0-2, proposed clinical action is to send home with follow-up. Safety Checks: Personal items have been removed. Door is open. Visitors are present. Pt denies substance abuse. Vital Signs: 08:48 BP 134 / 63; Pulse 74; Resp 16; Temp 97.5; Pulse Ox 99% on R/A; Pain 0/10; iw ED Course: 08:08 Patient arrived in ED. as 08:28 Bal Dowling MD is Attending Physician. [facility] 08:29 Meche Luciano, AMANDA is Primary Nurse. jl7 08:34 Patient has correct armband on for positive identification. Bed in low position. Warm 5 blanket given. Pulse ox on. NIBP on. 08:46 Triage completed. iw 09:03 Urine --Ancillary (enter results) Sent. 5 09:03 Urine Dipstick--Ancillary (enter results) Sent. 5 09:03 Urine Drug Screen Sent. 5 09:03 Urine collected: clean catch specimen, clear, Amount Voided: 100mL. 5 09:04 Diet: Patient given a regular meal tray. 5 09:06 Initial lab(s) drawn, by de, sent to lab. Inserted saline lock: 22 gauge in right hand, jl7 using aseptic technique. Blood collected. 09:12 Arm band placed on right wrist. jl7 10:04 No provider procedures requiring assistance completed. IV discontinued, intact, jl7 bleeding controlled, No redness/swelling at site. Pressure dressing applied. Administered Medications: 10:00 Drug: Cymbalta 60 mg Route: PO; jl7 10:06 Follow up: Response: Medication administered at discharge. 7 Outcome: 09:39 Discharge ordered by . lori 10:04 Discharged to home ambulatory, with family. jl7 10:04 Condition: stable 10:04 Discharge instructions given to patient, family, Instructed on discharge instructions, follow up and referral plans. medication usage, Demonstrated understanding of instructions, follow-up care, medications, Prescriptions given X 1. 10:05 Patient left the ED. jl7 10:06 Patient left the ED. jl7 Signatures: Bal Dowling MD MD cha Martinez, Amelia as Williams, Irene, Mercedez Ramirez RN [facility] Meche Luciano RN RN [facility]
--- NOTE | 2018-10-07 09:41 | EDPHYS ---
Physician Documentation [facility] Name: Shivani Lagunas Age: 43 yrs Sex: Female : 1975 Arrival Date: 10/07/2018 Time: 08:08 Bed 17 Private MD: ED Physician Bal Dowling HPI: 10/07 09:37 This 43 yrs old Female presents to ER via Ambulatory with complaints of lori Suicidal Ideation, Pain All Over, Medication Withdrawals. 09:37 The patient presents to the emergency department with anxiety, depression. Onset: The lori symptoms/episode began/occurred 5 day(s) ago. Past psychiatric history: Prior diagnosis: bipolar disorder, depression, Psychiatric medications include: cymbalta. Associated signs and symptoms: The patient has no apparent associated signs or symptoms. Severity of symptoms: At their worst the symptoms were mild moderate in the emergency department the symptoms are unchanged. The patient has not experienced similar symptoms in the past. 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 iw Historical: - Allergies: 08:48 Sulfa (Sulfonamide Antibiotics); iw - Home Meds: 08:48 allopurinol 100 mg Oral tab 1 tab once daily [Active]; duloxetine 60 mg Oral cpDR 1 cap iw nightly [Active]; citalopram 10 mg tab 1 tab once daily [Active]; losartan 100 mg Oral tab 1 tab once daily [Active]; propranolol 160 mg Oral tab 0.5 cap twice a day [Active]; quetiapine 50 mg Oral tab 1 tab 2 times per day [Active]; tizanidine 4 mg Oral cap 1 cap as needed [Active]; spironolactone 25 mg Oral tab 1 tab once daily [Active]; furosemide 40 mg oral tab once daily [Active]; diclofenac sodium 75 mg oral TbEC 1 tab 2 times per day [Active]; - PMHx: 08:48 Anxiety; Bipolar disorder; depression, anxiety, insomnia; fatty liver; Gout; High iw Cholesterol; Hypertension; - PSHx: 08:48 ; Cholecystectomy; iw - Immunization history:: Adult Immunizations not up to date. - Social history:: Smoking status: Patient/guardian denies using tobacco. - Ebola Screening: : Patient negative for fever greater than or equal to 101.5 degrees Fahrenheit, and additional compatible Ebola Virus Disease symptoms Patient denies exposure to infectious person Patient denies travel to an Ebola-affected area in the 21 days before illness onset No symptoms or risks identified at this time. - Family history:: not pertinent. ROS: 09:37 Constitutional: Negative for fever, chills, and weight loss, Eyes: Negative for injury, lori pain, redness, and discharge, ENT: Negative for injury, pain, and discharge, Neck: Negative for injury, pain, and swelling, Cardiovascular: Negative for chest pain, palpitations, and edema, Respiratory: Negative for shortness of breath, cough, wheezing, and pleuritic chest pain, Abdomen/GI: Negative for abdominal pain, nausea, vomiting, diarrhea, and constipation, Back: Negative for injury and pain, : Negative for injury, bleeding, discharge, and swelling, MS/Extremity: Negative for injury and deformity, Skin: Negative for injury, rash, and discoloration, Neuro: Negative for headache, weakness, numbness, tingling, and seizure, Allergy/Immunology: Negative for hives, rash, and allergies, Endocrine: Negative for neck swelling, polydipsia, polyuria, polyphagia, and marked weight changes, Hematologic/Lymphatic: Negative for swollen nodes, abnormal bleeding, and unusual bruising. 09:37 Psych: Positive for depression, suicidal ideation. Exam: 09:37 Constitutional: This is a well developed, well nourished patient who is awake, alert, lori and in no acute distress. Head/Face: Normocephalic, atraumatic. Eyes: Pupils equal round and reactive to light, extra-ocular motions intact. Lids and lashes normal. Conjunctiva and sclera are non-icteric and not injected. Cornea within normal limits. Periorbital areas with no swelling, redness, or edema. ENT: Nares patent. No nasal discharge, no septal abnormalities noted. Tympanic membranes are normal and external auditory canals are clear. Oropharynx with no redness, swelling, or masses, exudates, or evidence of obstruction, uvula midline. Mucous membranes moist. Neck: Trachea midline, no thyromegaly or masses palpated, and no cervical lymphadenopathy. Supple, full range of motion without nuchal rigidity, or vertebral point tenderness. No Meningismus. Chest/axilla: Normal chest wall appearance and motion. Nontender with no deformity. No lesions are appreciated. Cardiovascular: Regular rate and rhythm with a normal S1 and S2. No gallops, murmurs, or rubs. Normal PMI, no JVD. No pulse deficits. Respiratory: Lungs have equal breath sounds bilaterally, clear to auscultation and percussion. No rales, rhonchi or wheezes noted. No increased work of breathing, no retractions or nasal flaring. Abdomen/GI: Soft, non-tender, with normal bowel sounds. No distension or tympany. No guarding or rebound. No evidence of tenderness throughout. Back: No spinal tenderness. No costovertebral tenderness. Full range of motion. Skin: Warm, dry with normal turgor. Normal color with no rashes, no lesions, and no evidence of cellulitis. MS/ Extremity: Pulses equal, no cyanosis. Neurovascular intact. Full, normal range of motion. Neuro: Awake and alert, GCS 15, oriented to person, place, time, and situation. Cranial nerves II-XII grossly intact. Motor strength 5/5 in all extremities. Sensory grossly intact. Cerebellar exam normal. Normal gait. Psych: Awake, alert, with orientation to person, place and time. Behavior, mood, and affect are within normal limits. Vital Signs: 08:48 BP 134 / 63; Pulse 74; Resp 16; Temp 97.5; Pulse Ox 99% on R/A; Pain 0/10; iw MDM: 08:28 Patient medically screened. [facility] 10/07 08:28 Order name: Acetaminophen; Complete Time: 09:36 [facility] 10/07 08:28 Order name: Basic Metabolic Panel; Complete Time: 09:36 [facility] 10/07 08:28 Order name: CBC with Diff; Complete Time: 09:36 [facility] 10/07 08:28 Order name: ETOH Level 10/07 08:28 Order name: Hepatic Function; Complete Time: 09:36 [facility] 10/07 08:28 Order name: PT-INR; Complete Time: 09:36 [facility] 10/07 08:28 Order name: Ptt, Activated; Complete Time: 09:36 [facility] 10/07 08:28 Order name: Salicylate [facility] 10/07 08:28 Order name: Urine Drug Screen [facility] 10/07 08:28 Order name: EKG; Complete Time: 08:30 lori 10/07 08:35 Order name: Diet Regular; Complete Time: 08:36 [facility] 10/07 08:49 Order name: Urine Dipstick--Ancillary (enter results) bd 10/07 08:49 Order name: Urine --Ancillary (enter results) bd 10/07 08:28 Order name: Urine Test (obtain specimen); Complete Time: 09:03 [facility] 10/07 08:28 Order name: EKG - Nurse/Tech; Complete Time: 09:15 [facility] 10/07 08:28 Order name: IV Saline Lock; Complete Time: 09:15 [facility] 10/07 08:28 Order name: Labs collected and sent; Complete Time: 09:15 [facility] 10/07 08:28 Order name: Urine Dipstick-Ancillary (obtain specimen); Complete Time: 09:03 [facility] Administered Medications: 10:00 Drug: Cymbalta 60 mg Route: PO; jl7 10:06 Follow up: Response: Medication administered at discharge. jl7 Disposition: 10/07/18 09:39 Discharged to Home. Impression: Major depressive disorder, recurrent, Bipolar disorder, Suicidal ideations, Encounter for general adult medical examination - medical refill. - Condition is Stable. - Discharge Instructions: Bipolar Disorder, Suicidal Feelings: How to Help Yourself, Helping Someone Who is Suicidal, Stress and Stress Management. - Prescriptions for Cymbalta 60 mg Oral capsule,delayed release(DR/EC) - take 1 capsule by ORAL route once daily; 21 capsule. - Medication Reconciliation Form, Thank You Letter, Antibiotic Education, Prescription Opioid Use form. - Follow up: Private Physician; When: 2 - 3 days; Reason: Recheck today's complaints, Continuance of care, Re-evaluation by your physician. - Problem is new. - Symptoms have improved. Signatures: Dispatcher [employer] EDBal Degroot MD MD cha Williams, Irene, Meche Patten RN, RN RN jl7 Corrections: (The following items were deleted from the chart) 09:41 09:39 10/07/2018 09:39 Discharged to Home. Impression: Major depressive disorder, lori recurrent; Bipolar disorder. Condition is Stable. Forms are Medication Reconciliation Form, Thank You Letter, Antibiotic Education, Prescription Opioid Use. Follow up: Private Physician; When: 2 - 3 days; Reason: Recheck today's complaints, Continuance of care, Re-evaluation by your physician. Problem is new. Symptoms have improved. [facility] 10:05 09:41 10/07/2018 09:39 Discharged to Home. Impression: Major depressive disorder, jl7 recurrent; Bipolar disorder; Suicidal ideations; Encounter for general adult medical examination - medical refill. Condition is Stable. Forms are Medication Reconciliation Form, Thank You Letter, Antibiotic Education, Prescription Opioid Use. Follow up: Private Physician; When: 2 - 3 days; Reason: Recheck today's complaints, Continuance of care, Re-evaluation by your physician. Problem is new. Symptoms have improved. [facility] 10:06 10:05 10/07/2018 09:39 Discharged to Home. Impression: Major depressive disorder, jl7 recurrent; Bipolar disorder; Suicidal ideations; Encounter for general adult medical examination - medical refill. Condition is Stable. Discharge Instructions: Bipolar Disorder, Suicidal Feelings: How to Help Yourself, Helping Someone Who is Suicidal, Stress and Stress Management. Prescriptions for Cymbalta 60 mg Oral capsule,delayed release(DR/EC) - take 1 capsule by ORAL route once daily; 21 capsule. and Forms are Medication Reconciliation Form, Thank You Letter, Antibiotic Education, Prescription Opioid Use. Follow up: Private Physician; When: 2 - 3 days; Reason: Recheck today's complaints, Continuance of care, Re-evaluation by your physician. Problem is new. Symptoms have improved. jl7
[2018-10-07 09:42] LABS: Barbiturates NEGATIVE (NEGATIVE); Benzodiazepines NEGATIVE (NEGATIVE); Cocaine NEGATIVE (NEGATIVE); METHAMPHETAM NEGATIVE (NEGATIVE); Methadone NEGATIVE (NEGATIVE); Opiates POSITIVE (NEGATIVE); Phencyclidine NEGATIVE (NEGATIVE); THC Cannibis NEGATIVE (NEGATIVE)
[2018-10-07 09:55] LABS: Urine Blood 2+ (NEG); Urine Glucose NEGATIVE (NEG); Urine Protein 1+ (NEG); Urine Specific Gravity >1.030 (1.005-1.030)
[2018-10-07] MEDS ORDERED: DULOXETINE 30 MG CAP PO ONE (10:00)
--- NOTE | 2018-10-07 12:42 | EKG ---
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
== END 2018-10-07 10:06 | disposition home or self-care (01) ==
LOC: ER 08:06
DX: F33.9 Major depressive disorder, recurrent, unspecified (principal); F31.9 Bipolar disorder, unspecified; Z76.0 Encounter for issue of repeat prescription; I10 Essential (primary) hypertension; E78.00 Pure hypercholesterolemia, unspecified; Z88.2 Allergy status to sulfonamides
CPT/HCPCS: 36415; 80048; 80076; 80307; 80320; 80329; 81003; 81025; 85025; 85610; 85730; 93005; 99285

== ENCOUNTER 2019-05-17 13:57 | Emergency (ER) | payer SELFPAY ==
--- OUTSIDE RECORDS SUMMARY | 2019-05-17 14:00 | XMS REPORT ---
:1975 [facility] Address [facility] [address] [place] [address] Care Team Providers Name Role Phone Unavailable [...] HIGH.........160-189 mg/dL VERY HIGH.........>/=190 mg/dL Comments to Pipe Inspector: ADD TO AM LABSLIPID PROFILE (CORONARY RISK)2018-07-20 07:17:00 Test Item Value Reference Range Comments TRIGLYCERIDES (test code=TRIG) 143 MG/DL TRIGLYCERIDES REFERENCE RANGE:Normal: <150 mg/dLBorderline High: 150-199 mg/dLHigh: 200-499 mg/dLVery High: >=500 mg/dL CHOLESTEROL (test code=CHOL) 190 MG/DL <200 HDL CHOLESTEROL (test 41 MG/DL 40-59 code=HDL) LIPOPROTEIN LDL (test MG/DL 0-99 code=LDL) Comments to Pipe Inspector: ADD TO AM LABSPROTHROMBIN [id number] 06:24:00 Test Item Value Reference Range Comments [...] systemic embolism. 3.0 - 4.5 Comments to Pipe Inspector: NURSE WILL BRING SPECIMEN TO LABPTT [id number] 06:24:00 Test Item Value Reference Range Comments PTT ACTIVATED (test code=APTT) 29.3 SECONDS 22.0-33.0 Comments to Pipe Inspector: NURSE WILL BRING SPECIMEN TO LABBASIC METABOLIC [id number] 06:13:00 Test Item Value Reference Range Comments [...] (test code=CA) 9.6 MG/DL 8.4-10.2 Comments to Pipe Inspector: NURSE WILL BRING SPECIMEN TO LAB Comments to Pipe Inspector: NURSE WILL BRING SPECIMEN TO [id number] 06:13:00 Test Item Value Reference Range Comments MAGNESIUM (test code=MAG) 2.2 MG/DL 1.6-2.3 Comments to Pipe Inspector: NURSE WILL BRING SPECIMEN TO LAB Comments to Pipe Inspector: NURSE WILL BRING SPECIMEN TO LABCBC W/AUTO [id number] 06:02:00 Test Item Value Reference Range Comments [...]
--- OUTSIDE RECORDS SUMMARY | 2019-05-17 14:00 | XMS REPORT | Summary of Care ---
:1975 Author Organization [facility] Address [address] [place] [id number] Care Team Providers Name Role Phone Robert Ambrose [facility] Primary Care Provider [phone] Reason for Visit Reason Comments Pre-Visit Planning Encounter Details Date Type Department Care Team Description 04/03/2019 Telephone [facility] Nephrology- Remigio Ghosh MBBS Pre-Visit Planning [address], [phone] [facility] Floor [phone] [place] [address] Allergies Active Allergy Reactions Severity Noted Date Comments Sulfa (Sulfonamide Antibiotics) Hives 06/05/2018 documented as of this encounter (statuses as of 04/03/2019) Medications Medication Sig Dispensed Refills Start Date End Date Status losartan potassium Take by mouth. 0 Active (LOSARTAN ORAL) FUROSEMIDE ORAL Take by mouth. 0 Active documented as of this encounter (statuses as of 04/03/2019) Active Problems No known active problemsdocumented as of this encounter (statuses as of 2019) Social History Tobacco Use Types Packs/Day Years Used Date Never Assessed Sex Assigned at Date Recorded Not on file Job Start Date Occupation Industry Not on file Not on file Not on file Travel History Travel Start Travel End No recent travel history available. documented as of this encounter Last Filed Vital Signs Not on filedocumented in this encounter Plan of Treatment Date Type Specialty Care Team Description 04/23/2019 Office Visit Nephrology Remigio Ghosh MBBS [address] [place] [phone] Health Maintenance Due Date Last Done Comments DTaP,Tdap,and Td Vaccines (1 - 1988 Tdap) PAP SMEAR 1998 Breast Cancer Screening 2017 (MAMMOGRAM) INFLUENZA VACCINE (#1) 2018 PNEUMOCOCCAL 0-64 YEARS COMBINED Aged Out No longer eligible based on SERIES patient's age to complete this topic documented as of this encounter Results Not on filedocumented in this encounter
--- OUTSIDE RECORDS SUMMARY | 2019-05-17 14:00 | XMS REPORT | Summary of Care ---
:[address] [facility] Address [address] [place] [id number] Care Team Providers Name Role Phone Robert Ambrose [facility] Primary Care Provider [phone] Reason for Visit Reason Comments Pre-Visit Planning Encounter Details Date Type Department Care Team Description 04/03/2019 Telephone [facility] Nephrology- Remigio Ghosh MBBS Pre-Visit Planning [address], [phone] [facility] Floor [phone] [place] [address] Allergies Active Allergy Reactions Severity [...] 04/23/2019 Office Visit Nephrology Remigio Ghosh MBBS [address] [place] [phone] Health Maintenance Due Date Last Done Comments DTaP,Tdap,and Td Vaccines (1 - 1988 Tdap) PAP SMEAR 1998 Breast Cancer Screening 2017 (MAMMOGRAM) INFLUENZA VACCINE (#1) 2018 PNEUMOCOCCAL 0-64 YEARS COMBINED Aged Out No longer eligible based on SERIES patient's age to complete this topic documented as of this encounter Results Not on filedocumented in this encounter
[2019-05-17 15:09] LABS: Absolute Lymphocytes (CBC) 1.9 K/uL (0.7-4.9); Basophils % 0.8 % (0-1.3); Hematocrit 35.2 % (36.0-45.0); Lymphocytes % 25.2 % (15.3-44.8); MPV 9.7 fL (7.6-11.3); RBC Red Blood Cell Count 4.32 M/uL (3.86-4.86)
--- NOTE | 2019-05-17 15:16 | RAD REPORT ---
EXAM DESCRIPTION: [place] Single View05/17/2019 2:49 pm CLINICAL HISTORY: Chest pain COMPARISON: 2018 FINDINGS: The lungs appear clear of acute infiltrate. The heart is normal size IMPRESSION: No acute abnormalities displayed
[2019-05-17 15:21] LABS: Urine Bacteria <20 /HPF (<20); Urine RBC <5 /HPF (NONE SEEN)
[2019-05-17 15:22] LABS: Urine Culture Reflex Order REFLEXED
[2019-05-17 15:30] LABS: BUN Blood Urea Nitrogen 10 mg/dL (7-18); Bicarbonate 25 mmol/L (21-32); Glucose Level 115 mg/dL (74-106); NT PRO-BNP 97 pg/mL (<125); Sodium Level 139 mmol/L (136-145); Troponin (Emerg Dept Use Only) < 0.02 ng/mL (0.0-0.045)
--- NOTE | 2019-05-17 16:31 | RAD REPORT ---
EXAM DESCRIPTION: CT - Stone Protocol - 05/17/2019 4:09 pm CLINICAL HISTORY: Abdominal pain. Hematuria COMPARISON: 2018 TECHNIQUE: Computed axial tomography of the abdomen pelvis was obtained without oral or IV contrast. Lack of IV and oral contrast limits evaluation of solid organs, bowel, and vessels. Coronal reformat mehreen images were obtained and reviewed. All CT scans are performed using dose optimization technique as appropriate and may include automated exposure control or mA/KV adjustment according to patient size. FINDINGS: A renal calculus is not seen. An ureteral calculus is not noted. A bladder calculus is not present. The liver, spleen, pancreas and adrenals appear grossly normal There is no evidence of diverticulitis. The appendix appears normal IMPRESSION: Negative for a genitourinary calculus
--- NOTE | 2019-05-17 16:43 | EDPHYS ---
Physician Documentation [facility] Name: Shivani Lagunas Age: 43 yrs Sex: Female : 1975 Arrival Date: 05/17/2019 Time: 13:59 Bed 13 Private MD: ED Physician Jean Carlos Andrews HPI: 05/16 14:27 This 43 yrs old Female presents to ER via Ambulatory with complaints of Back rn Pain, Chest Tightness, Shortness Of Breath. 14:27 The patient presents with pain that is acute, with no known mechanism of injury. rn 14:28 The symptoms are located in the left subscapular area, right subscapular area, left mid rn back and right mid back. Onset: The symptoms/episode began/occurred 5 day(s) ago. The pain does not radiate. Associated signs and symptoms: Pertinent positives: chest pain, Pertinent negatives: abdominal pain, fever, hematuria, incontinence, nausea, numbness, tingling, urinary retention, vomiting, weakness. Modifying factors: The patient symptoms are alleviated by nothing, the patient symptoms are aggravated by nothing. Severity of symptoms: At their worst the symptoms were mild, in the emergency department the symptoms are unchanged. The patient has not experienced similar symptoms in the past. Reports 5-6 days of mid scapular pain, hurts like a band at mid back, + mild chest tightness, denies fever/cough/hemoptysis. No recent trauma. No hx of pulmonary issues or MT. Reports feels a little winded when exerting herself. No leg swelling. No abd pain. Feels like cramp or tight back. . 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 Historical: - Allergies: 14:18 Sulfa (Sulfonamide Antibiotics); jl - Home Meds: 14:18 lithium carbonate 300 mg Oral cap [Active]; alprazolam 0.5 mg Oral tab [Active]; 7 zolpidem 10 mg Oral tab [Active]; duloxetine 60 mg Oral cpDR 1 cap nightly [Active]; propranolol 80 mg oral tab 1 tab [Active]; losartan 100 mg Oral tab 1 tab once daily [Active]; spironolactone 25 mg Oral tab 1 tab once daily [Active]; allopurinol 100 mg Oral tab 1 tab once daily [Active]; atorvastatin 10 mg oral tab 1 tab once daily [Active]; - PMHx: 14:18 Anxiety; Bipolar disorder; depression, anxiety, insomnia; fatty liver; Gout; High jl7 Cholesterol; Hypertension; - PSHx: 14:18 Cholecystectomy; ; jl7 - Immunization history:: Adult Immunizations up to date. - Social history:: Smoking status: Patient denies any tobacco usage or history of. - Family history:: not pertinent. - Hospitalizations: : No recent hospitalization is reported. ROS: 14:28 Constitutional: Negative for fever, chills, and weight loss, Eyes: Negative for injury, rn pain, redness, and discharge, Neck: Negative for injury, pain, and swelling, Cardiovascular: + chest pain, neg for palpitations or edema Respiratory: + sob, negative for cough or hemoptysis Abdomen/GI: Negative for abdominal pain, nausea, vomiting, diarrhea, and constipation, Back: + mid-upper back pain MS/Extremity: Negative for injury and deformity, Skin: Negative for injury, rash, and discoloration, Neuro: Negative for headache, weakness, numbness, tingling, and seizure. Exam: 14:28 Constitutional: This is a well developed, well nourished patient who is awake, alert, rn and in no acute distress. Head/Face: Normocephalic, atraumatic. ENT: MMM Cardiovascular: Regular rate and rhythm. No pulse deficits. Respiratory: Clear bilateral breath sounds. No increased work of breathing, no retractions or nasal flaring. Abdomen/GI: soft, non-tender Back: No spinal tenderness. No costovertebral tenderness. Full range of motion. Skin: Warm, dry MS/ Extremity: Pulses equal, no cyanosis. Neurovascular intact. Full, normal range of motion. Equal circumference. Neuro: Awake and alert, GCS 15 14:28 ECG was reviewed by the Attending Physician. Vital Signs: 14:10 BP 134 / 65; Pulse 67; Resp 17; Temp 98.6; Pulse Ox 98% ; Weight 94.35 kg; Height 5 ft. jl7 6 in. (167.64 cm); Pain 7/10; 14:10 Body Mass Index 33.57 (94.35 kg, 167.64 cm) jl7 MDM: 14:01 Patient medically screened. rn 16:40 Differential diagnosis: arthritis, Ureterolithiasis UTI, pleurisy, anxiety, MT. Data rn reviewed: vital signs, nurses notes, lab test result(s), radiologic studies, CT scan, and as a result, I will discharge patient. Data reviewed: radiologic studies, plain films. Test interpretation: by ED physician or midlevel provider: ECG, plain radiologic studies, CXR neg for acute infiltrate. Counseling: I had a detailed discussion with the patient and/or guardian regarding: the historical points, exam findings, and any diagnostic results supporting the discharge/admit diagnosis. Response to treatment: the patient's symptoms have mildly improved after treatment. ED course: CXr neg, trop and ecg neg for ischemia, ct stone neg. Will dc home with OTC meds and prescription meds she has, return precautions given and understood. . 05/16 14:26 Order name: CBC with Diff; Complete Time: 15:14 rn 05/16 14:26 Order name: Basic Metabolic Panel; Complete Time: 15:33 rn 05/16 14:26 Order name: Troponin (emerg Dept Use Only); Complete Time: 15:33 rn 05/16 14:26 Order name: NT PRO-BNP; Complete Time: 15:33 rn 05/16 14:26 Order name: D-Dimer; Complete Time: 15:23 rn 05/16 14:26 Order name: Urine Microscopic Only; Complete Time: 15:23 rn 05/16 14:26 Order name: IV Start; Complete Time: 15:22 rn 05/16 14:26 Order name: XRAY Chest (1 view); Complete Time: 15:23 rn 05/16 14:26 Order name: EKG; Complete Time: 14:27 rn 05/16 14:26 Order name: Cardiac monitoring; Complete Time: 14:58 rn 05/16 15:08 Order name: Urine Dipstick--Ancillary (enter results) lt 05/16 15:09 Order name: Urine --Ancillary (enter results) lt 05/16 15:23 Order name: Urine Culture [facility] 05/16 15:44 Order name: CT Stone Protocol; Complete Time: 16:32 rn 05/16 14:26 Order name: EKG - Nurse/Tech; Complete Time: 14:58 rn 05/16 14:26 Order name: Labs collected and sent; Complete Time: 15:22 rn 05/16 14:26 Order name: O2 Per Protocol; Complete Time: 14:58 rn 05/16 14:26 Order name: O2 Sat Monitoring; Complete Time: 14:58 rn 05/16 14:26 Order name: Urine Dipstick-Ancillary (obtain specimen); Complete Time: 15:22 rn EC:28 Rate is 63 beats/min. Rhythm is regular. QRS [place] is Normal. [place] interval is normal. QRS rn interval is normal. QT interval is normal. No Q waves. T waves are Normal. No ST changes noted. Clinical impression: Normal ECG. Interpreted by me. Reviewed by me. Administered Medications: No medications were administered Disposition: 05/17/19 16:43 Discharged to Home. Impression: Dyspnea, unspecified, Mid back pain. - Condition is Stable. - Discharge Instructions: Back Pain, Adult, Shortness of Breath. - Medication Reconciliation Form, Thank You Letter, Antibiotic Education, Prescription Opioid Use form. - Follow up: Private Physician; When: As needed; Reason: Recheck today's complaints, Re-evaluation by your physician. - Problem is new. - Symptoms have improved. Signatures: Dispatcher [employer] EDMS Jean Carlos Andrews MD MD rn Leal, Jahala, RN RN jl7 Corrections: (The following items were deleted from the chart) 17:43 16:43 05/17/2019 16:43 Discharged to Home. Impression: Dyspnea, unspecified; Mid back jl7 pain. Condition is Stable. Forms are Medication Reconciliation Form, Thank You Letter, Antibiotic Education, Prescription Opioid Use. Follow up: Private Physician; When: As needed; Reason: Recheck today's complaints, Re-evaluation by your physician. Problem is new. Symptoms have improved. rn
--- NOTE | 2019-05-17 16:43 | ER ---
Nurse's Notes [facility] Name: Shivani Lagunas Age: 43 yrs Sex: Female : 1975 Arrival Date: 05/17/2019 Time: 13:59 Bed 13 Private MD: Diagnosis: Dyspnea, unspecified;Mid back pain Presentation: 05/16 14:10 Chief complaint: Patient states: Pain between shoulders feels like ripping x 6 days. jl7 "It feels like there's a mass under my lungs and when I walk I feel like it's pushing up on my lungs." Denies fever, denies cough. Coronavirus screen: Patient denies fever greater than 100.4F, cough, shortness of breath, or difficulty breathing. Proceed with normal triage process. Ebola Screen: No symptoms or risks identified at this time. Initial Sepsis Screen: Does the patient meet any 2 criteria? No. Patient's initial sepsis screen is negative. Does the patient have a suspected source of infection? No. Patient's initial sepsis screen is negative. Risk Assessment: Do you want to hurt yourself or someone else? Patient reports no desire to harm self or others. Onset of symptoms was May 12, 2019. 14:10 Method Of Arrival: Ambulatory [facility] 14:10 Acuity: ALICIA 3 jl7 Triage Assessment: 14:18 General: Appears in no apparent distress. uncomfortable, Behavior is cooperative, jl7 anxious. Pain: Complains of pain in thoracic area Pain currently is 7 out of 10 on a pain scale. Neuro: Level of Consciousness is awake, alert, obeys commands, Oriented to person, place, time, situation. Cardiovascular: Patient's skin is warm and dry. Respiratory: Airway is patent Respiratory effort is even, unlabored, Respiratory pattern is regular, symmetrical. Derm: Skin is pink, warm \\T\\ dry. Musculoskeletal: Range of motion: intact in all extremities. 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 jl7 Historical: - Allergies: 14:18 Sulfa (Sulfonamide Antibiotics); jl7 - Home Meds: 14:18 lithium carbonate 300 mg Oral cap [Active]; alprazolam 0.5 mg Oral tab [Active]; jl7 zolpidem 10 mg Oral tab [Active]; duloxetine 60 mg Oral cpDR 1 cap nightly [Active]; propranolol 80 mg oral tab 1 tab [Active]; losartan 100 mg Oral tab 1 tab once daily [Active]; spironolactone 25 mg Oral tab 1 tab once daily [Active]; allopurinol 100 mg Oral tab 1 tab once daily [Active]; atorvastatin 10 mg oral tab 1 tab once daily [Active]; - PMHx: 14:18 Anxiety; Bipolar disorder; depression, anxiety, insomnia; fatty liver; Gout; High jl7 Cholesterol; Hypertension; - PSHx: 14:18 Cholecystectomy; ; jl7 - Immunization history:: Adult Immunizations up to date. - Social history:: Smoking status: Patient denies any tobacco usage or history of. - Family history:: not pertinent. - Hospitalizations: : No recent hospitalization is reported. Screenin:19 Abuse screen: Denies threats or abuse. Denies injuries from another. Nutritional jl7 screening: No deficits noted. Tuberculosis screening: No symptoms or risk factors identified. 14:45 Fall Risk IV access (20 points). Total Rodriguez Fall Scale indicates No Risk (0-24 pts). jl7 Assessment: 14:19 Reassessment: ERD at bedside. jl7 Vital Signs: 14:10 BP 134 / 65; Pulse 67; Resp 17; Temp 98.6; Pulse Ox 98% ; Weight 94.35 kg; Height 5 ft. jl7 6 in. (167.64 cm); Pain 7/10; 14:10 Body Mass Index 33.57 (94.35 kg, 167.64 cm) jl7 ED Course: 13:59 Patient arrived in ED. ag5 14:01 Meche Luciano, RN is Primary Nurse. jl7 14:01 Jean Carlos Andrews MD is Attending Physician. rn 14:12 Triage completed. jl7 14:18 Arm band placed on right wrist. jl7 14:19 Patient has correct armband on for positive identification. Placed in gown. Bed in low jl7 position. Call light in reach. Side rails up X 1. commissions coordinator on. Pulse ox on. NIBP on. Warm blanket given. 14:19 EKG done, by ED staff, reviewed by Jean Carlos Andrews MD. jl7 14:40 Missed attempt(s): 20 gauge in right antecubital area. Bleeding controlled, band aid jl7 applied, catheter tip intact. 14:49 XRAY Chest (1 view) In Process Unspecified. EDMS 14:50 Initial lab(s) drawn, by me, sent to lab. Inserted saline lock: 22 gauge in right hand, jl7 using aseptic technique. Blood collected. 16:10 CT completed. Patient tolerated procedure well. Patient moved back from CT. mw3 16:10 CT Stone Protocol In Process Unspecified. EDMS 17:00 No provider procedures requiring assistance completed. IV discontinued, intact, jl7 bleeding controlled, No redness/swelling at site. Pressure dressing applied. Administered Medications: No medications were administered Outcome: 16:43 Discharge ordered by . rn 17:00 Discharged to home ambulatory. jl7 17:00 Condition: stable 17:00 Discharge instructions given to patient, family, Instructed on discharge instructions, follow up and referral plans. Demonstrated understanding of instructions, follow-up care. 17:43 Patient left the ED. jl7 Addendum: 05/22/2019 19:55 Addendum: Culture Results: Positive urine culture. Patient was not prescribed i w antibiotics at discharge. Report given to BLUE for further evaluation and then to apprentice for follow up with patient. Phone call Attempt #1 pt did not answer, left voice mail. Signatures: Dispatcher [employer] Mayelin Regalado, Jean Carlos Castro RN, MD MD rn Leal, Jahala, RN RN jl7 Tamar Adhikari mw3 Dung [place] ag5
[2019-05-17 17:50] VITALS: BP 134/65; TEMP 98.6; O2SAT 98
[2019-05-17 20:17] LABS: Urine Specific Gravity 1.025 (1.005-1.030)
[2019-05-17 20:17] LABS: Urine Blood 2+ (NEG); Urine Glucose NEGATIVE (NEG); Urine Protein NEGATIVE (NEG); Urine Specific Gravity 1.025 (1.005-1.030); Urine pH 7.5 (5.0-7.0)
--- NOTE | 2019-05-19 16:52 | EKG ---
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
== END 2019-05-17 17:43 | disposition home or self-care (01) ==
LOC: ER 13:57
DX: M54.9 Dorsalgia, unspecified (principal); I10 Essential (primary) hypertension; E78.00 Pure hypercholesterolemia, unspecified; F31.9 Bipolar disorder, unspecified; Z88.2 Allergy status to sulfonamides
CPT/HCPCS: 36415; 71045; 74176; 76377; 80048; 81003; 81015; 81025; 83880; 84484; 85025; 85379; 87077; 87086; 87088; 87186; 93005; 99285

== ENCOUNTER 2019-11-20 10:06 | Emergency (ER) | payer SELFPAY ==
[2019-11-20] MEDS ORDERED: NA CHLORIDE 0.9% 500 ML ONE (11:08)
[2019-11-20] MEDS ORDERED: LIDOCAINE VISCOUS 2% SOLN 15 ML UDC ONE (11:13)
[2019-11-20] MEDS ORDERED: MAGNE/ALUM HYDROXD 30 ML UCUP ONE (11:13)
[2019-11-20 11:24] LABS: Urine Blood 1+ (NEG); Urine Glucose NEGATIVE (NEG); Urine Protein NEGATIVE (NEG)
[2019-11-20 11:29] LABS: Absolute Lymphocytes (CBC) 1.6 K/uL (0.7-4.9); Basophils % 0.9 % (0-1.3); Hematocrit 34.9 % (36.0-45.0); Lymphocytes % 27.2 % (15.3-44.8); MPV 10.2 fL (7.6-11.3); RBC Red Blood Cell Count 4.27 M/uL (3.86-4.86)
[2019-11-20 11:44] LABS: Urine Bacteria <20 /HPF (<20); Urine Culture Reflex Order NOT NEEDED
[2019-11-20 11:48] LABS: ALT/SGPT 32 U/L (12-78); AST/SGOT 18 U/L (15-37); Albumin 3.5 g/dL (3.4-5.0); Alkaline Phosphatase 115 U/L (45-117); BUN Blood Urea Nitrogen 9 mg/dL (7-18); Bicarbonate 25 mmol/L (21-32); Bilirubin Direct < 0.1 mg/dL (0-0.2); Bilirubin Total 0.3 mg/dL (0.2-1.0); Glucose Level 89 mg/dL (74-106); Lipase 85 U/L (73-393); Potassium 4.1 mmol/L (3.5-5.1); Protein, Total 7.6 g/dL (6.4-8.2); Sodium Level 139 mmol/L (136-145); Troponin (Emerg Dept Use Only) < 0.02 ng/mL (0.0-0.045)
--- NOTE | 2019-11-20 12:21 | ER ---
Nurse's Notes [facility] Name: Shivani Lagunas Age: 44 yrs Sex: Female : 1975 Arrival Date: 11/20/2019 Time: 10:07 Bed 5 Private MD: Diagnosis: Epigastric pain;Gastritis, unspecified, without bleeding Presentation: 11/19 10:17 Chief complaint: Patient states: for past 3-4 days. feels nauseous and has diarrhea at iw times, also feels like something gets stuck in her abdomen after she eats, is having some unsteadiness when she walks, thought it was because she wasn't eating well, then started feeling tightness in left side of chest and left arm, has been feeling very weak and tired, no fever +chills. Coronavirus screen: chills, diarrhea, nausea, Client presents with at least one sign or symptom that may indicate coronavirus-19. Standard/surgical mask placed on the client. Provider contacted for isolation considerations. Ebola Screen: Patient negative for fever greater than or equal to 101.5 degrees Fahrenheit, and additional compatible Ebola Virus Disease symptoms Patient denies exposure to infectious person. Patient denies travel to an Ebola-affected area in the 21 days before illness onset. No symptoms or risks identified at this time. Initial Sepsis Screen: Does the patient meet any 2 criteria? No. Patient's initial sepsis screen is negative. Does the patient have a suspected source of infection? No. Patient's initial sepsis screen is negative. Risk Assessment: Do you want to hurt yourself or someone else? Patient reports no desire to harm self or others. Onset of symptoms was November 17, 2019. 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 LMP 11/13/2019 iw Historical: - Allergies: 10:23 Sulfa (Sulfonamide Antibiotics); iw - Home Meds: 10:23 propranolol 80 mg Oral tab 1 tab 2 times per day [Active]; zolpidem 10 mg Oral tab once iw daily [Active]; spironolactone 25 mg Oral tab 1 tab once daily [Active]; losartan 100 mg Oral tab 1 tab once daily [Active]; lithium carbonate 600 mg oral cap daily [Active]; duloxetine 90 mg Oral cpDR 1 cap once daily [Active]; atorvastatin 10 mg Oral tab 1 tab once daily [Active]; clonazepam 2 mg Oral tab nightly [Active]; allopurinol 100 mg Oral tab 1 tab once daily [Active]; - PMHx: 10:23 Anxiety; Bipolar disorder; depression, anxiety, insomnia; fatty liver; Gout; High iw Cholesterol; Hypertension; arrythmia; - PSHx: 10:23 Cholecystectomy; ; iw - Immunization history:: Adult Immunizations not up to date. - Social history:: Smoking status: Patient reports the use of cigarette tobacco products, denies chronic smoking, but will smoke occasionally. - Family history:: not pertinent. - Hospitalizations: : No recent hospitalization is reported. Screenin:00 Abuse screen: Denies threats or abuse. Denies injuries from another. Nutritional jl7 screening: No deficits noted. Tuberculosis screening: No symptoms or risk factors identified. Fall Risk IV access (20 points). Total Rodriguez Fall Scale indicates No Risk (0-24 pts). Assessment: 10:45 General: Appears in no apparent distress. uncomfortable, Behavior is calm, cooperative. jl7 Pain: Complains of pain in PÉREZ. Neuro: Level of Consciousness is awake, alert, obeys commands, Oriented to person, place, time, situation. Cardiovascular: Patient's skin is warm and dry. Respiratory: Airway is patent Respiratory effort is even, unlabored, Respiratory pattern is regular, symmetrical. GI: Abdomen is non-distended. Derm: Skin is pink, warm \T\ dry. 12:30 Reassessment: Patient appears in no apparent distress at this time. Patient and/or rb1 family updated on plan of care and expected duration. Pain level reassessed. Patient is alert, oriented x 3, equal unlabored respirations, skin warm/dry/pink. Patient states symptoms have improved. Vital Signs: 10:17 BP 153 / 81; Pulse 76; Resp 16; Temp 98.7; Pulse Ox 99% on R/A; Weight 94.35 kg; Height iw 5 ft. 6 in. (167.64 cm); 11:18 BP 105 / 94; Pulse 65; Resp 15; Pulse Ox 98% ; Pain 3/10; jl7 12:12 BP 129 / 79; Pulse 65; Resp 16; Pulse Ox 100% ; rb1 10:17 Body Mass Index 33.57 (94.35 kg, 167.64 cm) iw ED Course: 10:07 Patient arrived in ED. as 10:20 Triage completed. iw 10:23 Arm band placed on. iw 10:24 Jean Carlos Andrews MD is Attending Physician. rn 10:35 Patient has correct armband on for positive identification. Placed in gown. Bed in low jl7 position. Call light in reach. Side rails up X 1. 10:35 mental health unit lead psychologist on. Pulse ox on. NIBP on. Warm blanket given. jl7 10:42 Meche Luciano, RN is Primary Nurse. jl7 10:45 Initial lab(s) drawn, by hi, sent to lab. Urine collected: clean catch specimen, clear. jl7 Inserted saline lock: 20 gauge in right forearm, using aseptic technique. Blood collected. 12:20 Uriel Payne MD is Referral Physician. rn 12:31 No provider procedures requiring assistance completed. IV discontinued, intact, rb1 bleeding controlled, No redness/swelling at site. Pressure dressing applied. Administered Medications: 11:10 Drug: GI Cocktail without - (Maalox Suspension 30 ml, Lidocaine Liquid 2 % 15 jl7 ml) Route: PO; 12:36 Follow up: Response: No adverse reaction; Pain is decreased jl7 11:10 Drug: NS 0.9% 500 ml Route: IV; Rate: bolus; Site: right forearm; jl7 12:00 Follow up: Response: No adverse reaction; IV Status: Completed infusion; IV Intake: jl7 500ml Intake: 12:00 IV: 500ml; Total: 500ml. jl7 Outcome: 12:21 Discharge ordered by . rn 12:31 Discharged to home ambulatory. rb1 12:31 Condition: stable 12:31 Discharge instructions given to patient, Instructed on discharge instructions, follow up and referral plans. medication usage, Demonstrated understanding of instructions, follow-up care, medications, Prescriptions given X 1. 12:34 Patient left the ED. iw Signatures: Sally Godoy Irene, RN RN iw Jean Carlos Andrews MD MD rn Barber, Rebecca, RN RN rb1 Meche Luciano RN RN jl7
--- NOTE | 2019-11-20 12:21 | EDPHYS ---
Physician Documentation [facility] Name: Shivani Lagunas Age: 44 yrs Sex: Female : 1975 Arrival Date: 11/20/2019 Time: 10:07 Bed 5 Private MD: ED Physician Jean Carlos Andrews HPI: 11/19 10:48 This 44 yrs old Female presents to ER via Ambulatory with complaints of chest rn pain, Decreased Appetite, Nausea. 11:55 The patient presents with abdominal pain in the epigastric area. rn 11:55 Onset: The symptoms/episode began/occurred 3 day(s) ago. The symptoms do not radiate. rn Associated signs and symptoms: Pertinent positives: chest pain, diarrhea, Pertinent negatives: blood in stools, fever, shortness of breath, vaginal discharge, vomiting blood. The symptoms are described as achy, burning. Modifying factors: The symptoms are alleviated by nothing, the symptoms are aggravated by food. Severity of pain: At its worst the pain was mild in the emergency department the pain is unchanged. The patient has not experienced similar symptoms in the past. The patient has not recently seen a physician. Reports epigastric sensation after eating, feels "knot" in stomach, + nausea, also noticing left sided chest pain and shoulder pain, + diarrhea without blood or dark stool, no fever, no head injury. Does have acid reflux and doesn't take her nexium regularly. Pain worse with eating. Also reports her lithium and anti-depressant increased a few weeks ago. . SCENE SHIFTER: 10:23 LMP 11/13/2019 iw Historical: - Allergies: 10:23 Sulfa (Sulfonamide Antibiotics); iw - Home Meds: 10:23 propranolol 80 mg Oral tab 1 tab 2 times per day [Active]; zolpidem 10 mg Oral tab once iw daily [Active]; spironolactone 25 mg Oral tab 1 tab once daily [Active]; losartan 100 mg Oral tab 1 tab once daily [Active]; lithium carbonate 600 mg oral cap daily [Active]; duloxetine 90 mg Oral cpDR 1 cap once daily [Active]; atorvastatin 10 mg Oral tab 1 tab once daily [Active]; clonazepam 2 mg Oral tab nightly [Active]; allopurinol 100 mg Oral tab 1 tab once daily [Active]; - PMHx: 10:23 Anxiety; Bipolar disorder; depression, anxiety, insomnia; fatty liver; Gout; High iw Cholesterol; Hypertension; arrythmia; - PSHx: 10:23 Cholecystectomy; ; iw - Immunization history:: Adult Immunizations not up to date. - Social history:: Smoking status: Patient reports the use of cigarette tobacco products, denies chronic smoking, but will smoke occasionally. - Family history:: not pertinent. - Hospitalizations: : No recent hospitalization is reported. ROS: 11:55 Constitutional: Negative for fever, chills, and weight loss, Eyes: Negative for injury, rn pain, redness, and discharge, Neck: Negative for injury, pain, and swelling, Cardiovascular: Negative for palpitations, and edema, Respiratory: Negative for shortness of breath, cough, wheezing, and pleuritic chest pain, Abdomen/GI: Negative for constipation MS/Extremity: Negative for injury and deformity, Skin: Negative for injury, rash, and discoloration, Neuro: Negative for headache, numbness, tingling, and seizure. Exam: 11:55 Constitutional: This is a well developed, well nourished patient who is awake, alert, rn and in no acute distress. Ambulatory to room without difficulty. Head/Face: Normocephalic, atraumatic. Eyes: Pupils equal round and reactive to light, extra-ocular motions intact. Lids and lashes normal. Conjunctiva and sclera are non-icteric and not injected. Cornea within normal limits. Periorbital areas with no swelling, redness, or edema. Cardiovascular: Regular rate and rhythm. No pulse deficits. Respiratory: Speaking full sentences. No increased work of breathing, no retractions or nasal flaring. Abdomen/GI: soft, mild epigastric tenderness Skin: Warm, dry with normal turgor. Normal color with no rashes, no lesions, and no evidence of cellulitis. MS/ Extremity: Pulses equal, no cyanosis. Neurovascular intact. Full, normal range of motion. Equal circumference. Neuro: Awake and alert, GCS 15, oriented to person, place, time, and situation. Cranial nerves II-XII grossly intact. Motor strength 5/5 in all extremities. Sensory grossly intact. Cerebellar exam normal. Normal gait. 12:10 ECG was reviewed by the Attending Physician. rn Vital Signs: 10:17 BP 153 / 81; Pulse 76; Resp 16; Temp 98.7; Pulse Ox 99% on R/A; Weight 94.35 kg; Height iw 5 ft. 6 in. (167.64 cm); 11:18 BP 105 / 94; Pulse 65; Resp 15; Pulse Ox 98% ; Pain 3/10; jl7 12:12 BP 129 / 79; Pulse 65; Resp 16; Pulse Ox 100% ; rb1 10:17 Body Mass Index 33.57 (94.35 kg, 167.64 cm) iw MDM: 10:24 Patient medically screened. rn 12:19 Differential diagnosis: gastritis, gastroesophageal reflux disease, non-specific abd rn pain, pancreatitis, Peptic Ulcer Disease. Data reviewed: vital signs, nurses notes, lab test result(s), EKG, and as a result, I will discharge patient. Counseling: I had a detailed discussion with the patient and/or guardian regarding: the historical points, exam findings, and any diagnostic results supporting the discharge/admit diagnosis, lab results, the need for outpatient follow up, to return to the emergency department if symptoms worsen or persist or if there are any questions or concerns that arise at home. Response to treatment: the patient's symptoms have mildly improved after treatment, and as a result, I will discharge patient. Special discussion: Based on the patient's Hx, exam, and Dx evaluation, there is no indication for emergent surgery or inpatient Tx. It is understood by the patient/guardian that if the Sx's persist or worsen they need to return immediately for re-evaluation. I discussed with the patient/guardian in detail that at this point there is no indication for admission to the hospital. It is understood, however, that if the symptoms persist or worsen the patient needs to return immediately for re-evaluation. ED course: Most likely gastritis/esophagitis, will dc home with antacids, recommend GI f/u, and needs to f/u with pcp for persistently low lithium levels despite titration. . 11/19 10:50 Order name: Basic Metabolic Panel; Complete Time: : rn 11/19 10:50 Order name: CBC with Diff; Complete Time: 12: rn 11/19 10:50 Order name: Hepatic Function; Complete Time: 12: rn 11/19 10:50 Order name: Lipase; Complete Time: 12: rn 11/19 10:50 Order name: [place]; Complete Time: 12: rn 11/19 10:50 Order name: Troponin (emerg Dept Use Only); Complete Time: 12: rn 11/19 10:50 Order name: IV Saline Lock; Complete Time: 11:17 rn 11/19 10:50 Order name: Labs collected and sent; Complete Time: 11:17 rn 11/19 10:50 Order name: EKG; Complete Time: 10:50 rn 11/19 10:50 Order name: Urine Microscopic Only; Complete Time: 12: rn 11/19 11:18 Order name: Urine Dipstick--Ancillary (enter results); Complete Time: 12: em1 11/19 11:18 Order name: Urine --Ancillary (enter results); Complete Time: 12: em1 11/19 10:50 Order name: EKG - Nurse/Tech; Complete Time: 11: rn 11/19 10:50 Order name: Urine Test (obtain specimen); Complete Time: 11: rn 11/19 10:50 Order name: Urine Dipstick-Ancillary (obtain specimen); Complete Time: 11:17 rn EC:10 Rate is 63 beats/min. Rhythm is regular. QRS [place] is Normal. [place] interval is normal. QRS rn interval is normal. QT interval is normal. No Q waves. T waves are Normal. No ST changes noted. Clinical impression: Normal ECG. Interpreted by me. Reviewed by me. Administered Medications: 11:10 Drug: GI Cocktail without - (Maalox Suspension 30 ml, Lidocaine Liquid 2 % 15 jl7 ml) Route: PO; 12:36 Follow up: Response: No adverse reaction; Pain is decreased jl7 11:10 Drug: NS 0.9% 500 ml Route: IV; Rate: bolus; Site: right forearm; jl7 12:00 Follow up: Response: No adverse reaction; IV Status: Completed infusion; IV Intake: jl7 500ml Disposition: 11/20/19 12:21 Discharged to Home. Impression: Epigastric pain, Gastritis, unspecified, without bleeding. - Condition is Stable. - Discharge Instructions: Abdominal Pain, Adult, Gastritis, Adult, Gastroesophageal Reflux Disease, Adult. - Prescriptions for Protonix 40 mg Oral Tablet - take 1 tablet by ORAL route once daily; 30 tablet. - Medication Reconciliation Form, Thank You Letter, Antibiotic Education, Prescription Opioid Use form. - Follow up: Uriel Payne MD; When: As needed; Reason: Recheck today's complaints, Re-evaluation by your physician. - Problem is new. - Symptoms have improved. Signatures: Dispatcher [employer] Mayelin Regalado, RN RN Jean Carlos Paz MD MD rn Leal, Jahala, RN RN jl7 Corrections: (The following items were deleted from the chart) 12:34 12:21 11/20/2019 12:21 Discharged to Home. Impression: Epigastric pain; Gastritis, iw unspecified, without bleeding. Condition is Stable. Forms are Medication Reconciliation Form, Thank You Letter, Antibiotic Education, Prescription Opioid Use. Follow up: Uriel Payne; When: As needed; Reason: Recheck today's complaints, Re-evaluation by your physician. Problem is new. Symptoms have improved. rn
[2019-11-20 12:44] VITALS: TEMP 98.7
[2019-11-20 12:48] VITALS: BP 129/79; O2SAT 100
--- OUTSIDE RECORDS SUMMARY | 2019-11-21 02:36 | XMS REPORT | Continuity of Care Document ---
:1975 Author Organization [facility] t Address [address] [place] [address] Care Team Providers Name Role Phone Unavailable Unavailable Unavailable Payers Payer Name Policy Type Policy Number Effective Date Expiration Date S ource Problems This patient has no known problems. Allergies, Adverse Reactions, Alerts This patient has no known allergies or adverse reactions. Medications This patient has no known medications. Procedures This patient has no known procedures. Results Test Description Test Time Test Comments Results Result Comments Source LIPID PROFILE (CORONARY RISK) 2018-07-20 07:27:00 Test Item Value Reference Range Interpretation Comme nts TRIGLYCERIDES (test code = TRIG) 143 MG/DL TRIGLYCERIDES REFERENCE RANGE:Normal: < 150 mg/dLBorderline High: 150-199 m g/dLHigh: 200-499 mg/dLVery High: >=500 mg/dL CHOLESTEROL (test code = CHOL) 190 MG/DL <200 HDL CHOLESTEROL (test code = HDL) 41 MG/DL 40-59 N LIPOPROTEIN LDL (test code = LDL) 144 MG/DL 0-99 H OPTIMAL........ .<100 mg/dLNEAR OPTIMAL/ABOVE OPTIMAL........ .100-129 mg/dL BORDERLINE HIGH.........13 0-159 mg/dL HI GH.........160-189 mg/dL VERY HIGH.........>/ = 190 mg/dL Comments to Master Hearth Technician: ADD TO AM LABSLIPID PROFILE (CORONARY RISK)2018-07-20 07:17:00 Test Item Value Reference Range Interpretation Comments TRIGLYCERIDES (test 143 MG/DL TRIGLYCE RIDES code = TRIG) REFERENCE RANGE:Normal: < 150 mg/dLBorderline High: 150-199 mg/dLHi gh: 200-499 mg/dLVe ry High: >=500 mg/ dL CHOLESTEROL (test code 190 MG/DL <200 = CHOL) HDL CHOLESTEROL (test 41 MG/DL 40-59 N code = HDL) LIPOPROTEIN LDL (test MG/DL 0-99 code = LDL) Comments to Master Hearth Technician: ADD TO AM LABSPROTHROMBIN [id number] 06:24:00 Test Item Value Reference Range Interpretation Comments PROTHROMBIN TIME 9.9 SECONDS 9.6-11.6 N PATIENT (test code = PTP) INTERNATIONAL NORMAL 0.9 0.8-1.1 N The INR is to be RATIO (test code = INR) used only for monitoring oral anticoagulantth erap y. INDICATION I NR VALUE ---- ---- ---- -------1. Prophylaxis, de ep venous thrombos is, including hig h risk surgery. 2.0 - 3.0 2. Prophylaxis, de ep venous thrombos is, hip surgery, treatment for d eep venous thrombosis or pulmonary prevention of systemic emboli sm in patients wit h valvular heart disease, atrial fibrillation, tissue heart va lve, or acute myocar dial infarction. 2.0 - 3 .0 3. Mechanical prosthesis hear t valves, recurrent syste karla embolism. 3.0 - 4.5 Comments to Master Hearth Technician: NURSE WILL BRING SPECIMEN TO LABPTT ACTIVATED 2018-07-20 06:24:00 Test Item Value Reference Range Interpretation Comments PTT ACTIVATED (test code = APTT) 29.3 SECONDS 22.0-33.0 N Comments to Master Hearth Technician: NURSE WILL BRING SPECIMEN TO LABBASIC METABOLIC PANEL 2018-07-20 06:13:00 Test Item Value Reference Range Interpretation Comments SODIUM (test code = 141 MMOL/L 137-145 N NA) POTASSIUM (test code = 3.8 MMOL/L 3.5-5.1 N K) CHLORIDE (test code = 104 MMOL/L 98-107 N CL) CARBON DIOXIDE (test 28 MMOL/L 22-30 N code = CO2) GLUCOSE (test code = 106 MG/DL 74-106 N GLU) BLOOD UREA NITROGEN 11 MG/DL 7-17 N (test code = BUN) GLOMERULAR FILTRATION > 60 Report ing units: RATE (test code = GFR) ml/mi n/1.73 m2 (Modified MDRD Formula)Referen ce Range: > or = 6 0 ml/min/1.73 m2 CREATININE (test code 0.70 MG/DL 0.52-1.04 N = CREAT) CALCIUM (test code = 9.6 MG/DL 8.4-10.2 N CA) Comments to Master Hearth Technician: NURSE WILL BRING SPECIMEN TO LAB Comments to Master Hearth Technician: NURSE WILL BRING SPECIMEN TO [id number] 06:13:00 Test Item Value Reference Range Interpretation Comments MAGNESIUM (test code = MAG) 2.2 MG/DL 1.6-2.3 N Comments to Master Hearth Technician: NURSE WILL BRING SPECIMEN TO LAB Comments to Master Hearth Technician: NURSE WILL BRING SPECIMEN TO LABCBC W/AUTO [id number] 06:02:00 Test Item Value Reference Range Interpretation Comments WHITE BLOOD CELL (test code = 9.8 K/MM3 3.8-9.8 N WBC) RED BLOOD CELL (test code = 4.33 M/MM3 3.58-4.97 N RBC) HEMOGLOBIN (test code = HGB) 11.9 G/DL 11.2-14.9 N HEMATOCRIT (test code = HCT) 36.3 % 33.2-43.5 N MEAN CELL VOLUME (test code = 84 fL 80.7-99.1 N MCV) MEAN CELL HGB (test code = MCH) 27.5 pg 27.0-34.1 N MEAN CELL HGB CONCETRATION 32.8 % 32.2-35.7 N (test code = MCHC) RED CELL DISTRIBUTION WIDTH 14.6 % 12.1-15.2 N (test code = RDW) PLATELET COUNT (test code = 262 K/MM3 129-368 N PLT) MEAN PLATELET VOLUME (test code 11.9 fl 7.4-10.4 H = MPV) NEUTROPHIL % (test code = NT%) 64.6 % 43-75 N IMMATURE GRANULOCYTE % (test 0.6 % 0.0-2.0 N code = IG%) LYMPHOCYTE % (test code = LY%) 24.3 % 14-44 N MONOCYTE % (test code = MO%) 6.7 % 4-13 N EOSINOPHIL % (test code = EO%) 3.2 % 0-6 N BASOPHIL % (test code = BA%) 0.6 % 0-2 N NUCLEATED RBC % (test code = 0.0 % 0-1.0 N NRBC%) NEUTROPHIL # (test code = NT#) 6.31 K/mm3 2.0-7.6 N IMMATURE GRANULOCYTE # (test 0.06 x10 3/uL 0-0.03 H code = IG#) LYMPHOCYTE # (test code = LY#) 2.38 K/mm3 1.0-3.8 N MONOCYTE # (test code = MO#) 0.66 K/mm3 0.1-0.8 N EOSINOPHIL # (test code = EO#) 0.31 K/mm3 0.0-0.2 H BASOPHIL # (test code = BA#) 0.06 K/mm3 0.0-0.2 N NUCLEATED RBC # (test code = 0.00 K/mm3 0.0-0.1 N NRBC#)
--- OUTSIDE RECORDS SUMMARY | 2019-11-21 02:36 | XMS REPORT | Summary of Care ---
:1975 Author Organization [facility] Address [address] [place] [id number] Care Team Providers Name Role Phone [facility] Primary Care Provid er Encounter Details Date Type Department Care Team Description 08/26/2019 Patient Secure Msg [facility] Nephrology- Makenzie Joyner, [address], [address] [place] [address] 6th Floor [phone] [place] [address] [phone] Allergies Active Allergy Reactions Severity Noted Date Comments Sulfa (Sulfonamide Antibiotics) Hives 9 documented as of this encounter (statuses as of 09/03/2019) Medications Medication Sig Dispensed Refills Start Date End Date Status losartan potassium Take by mouth. 0 Active (LOSARTAN ORAL) FUROSEMIDE ORAL Take 40 mg by 0 Active mouth daily. DULoxetine 60 mg Take 60 mg by 30 capsule 2 06/11/2019 Active CDRSIndications: mouth daily. Bipolar 1 disorder, mixed, Generalized anxiety disorder lithium carbonate 300 Take 1 tablet by 30 tablet 2 06/11/2019 Active mg tabletIndications: mouth at bedtime. Bipolar 1 disorder, mixed propranolol 80 mg Take 80 mg by 0 Active tablet mouth 2 (two) times daily. allopurinoL 100 mg Take 100 mg by 0 Active tablet mouth daily. atorvastatin 10 mg Take 10 mg by 0 Active tablet mouth at bedtime. citalopram 10 mg Take 10 mg by 0 Active tablet mouth daily. clonazePAM 1 mg Take 1 tablet 30 tablet 1 08/12/2019 Active tabletIndications: daily as need for Generalized anxiety anxiety or panic. disorder zolpidem 10 mg Take 1 tablet by 30 tablet 0 08/12/2019 Active tabletIndications: mouth at bedtime Insomnia, unspecified as needed for type Insomnia. DULoxetine 30 mg Take 1 capsule by 30 capsule 1 08/06/2019 Active capsuleIndications: mouth daily. Take Bipolar 1 disorder, with the 60mg mixed dose for total of 90mg documented as of this encounter (statuses as of 09/03/2019) Active Problems No known active problemsdocumented as of this encounter (statuses as of 09/03/2019) Social History Tobacco Use Types Packs/Day Years Used Date Never Smoker Smokeless Tobacco: Never Used Sex Assigned at Date Recorded Not on file Job Start Date Occupation Industry Not on file Not on file Not on file Travel History Travel Start Travel End No recent travel history available. COVID-19 Exposure Response Date Recorded In the last month, have you been in contact with No / Unsure 08/06/2019 1:03 PM CDT someone who was confirmed or suspected to have Coronavirus / COVID-19? documented as of this encounter Last Filed Vital Signs Not on filedocumented in this encounter Plan of Treatment Date Type Specialty Care Team Description 09/15/2019 Office Visit Nephrology Makenzie Joyner, DO [address] [address] [phone] 10/01/2019 Office Visit Psychiatry Barry Dan M D [address] [facility]. [place] [address] [phone] Health Maintenance Due Date Last Done Comments DTaP,Tdap,and Td Vaccines (1 1988 - Tdap) PAP SMEAR 1998 Breast Cancer Screening 2017 (MAMMOGRAM) INFLUENZA VACCINE (#1) 2019 Depression Screening 08/05/2020 08/06/2019, 08/06/2019 PNEUMOCOCCAL 0-64 YEARS Aged Out No longe r eligible based COMBINED SERIES on patient's age to complete [facility] documented as of this encounter Results Not on filedocumented in this encounter
--- OUTSIDE RECORDS SUMMARY | 2019-11-21 02:36 | XMS REPORT | Summary of Care ---
:1975 Author Organization [facility] Address [address] [place] [address] Care Team Providers Name Role Phone [facility] Primary Care Provid er Reason for Visit Reason Comments Appointment Pre-Visit Planning Encounter Details Date Type Department Care Team Description 08/25/2019 Telephone [facility] Nephrology- Makenzie Joyner, Appointment; Pre-Visit [facility] [address] [place] [address] 6th Floor [address] [place], [place] [phone] [address] [phone] Allergies Active Allergy Reactions Severity Noted Date Comments Sulfa (Sulfonamide Antibiotics) Hives 9 documented as of this encounter (statuses as of 08/26/2019) Medications Medication Sig Dispensed Refills Start Date [...] as of this encounter (statuses as of 08/26/2019) Active Problems No known active problemsdocumented as of this encounter (statuses as of 08/26/2019) Social History Tobacco Use Types Packs/Day Years [...] Treatment Date Type Specialty Care Team Description 09/01/2019 Office Visit Psychiatry Barry Dan M D [address] [place] [address]. [place] [address] [phone] 09/15/2019 Office Visit Nephrology Makenzie Joyner DO [address] [place] [address] [phone] Health Maintenance Due Date Last Done Comments DTaP,Tdap,and Td Vaccines (1 1988 - Tdap) PAP SMEAR 1998 Breast Cancer Screening 2017 (MAMMOGRAM) INFLUENZA VACCINE (#1) 2019 Depression Screening 08/05/2020 08/06/2019, 08/06/2019 PNEUMOCOCCAL 0-64 YEARS Aged Out No longe r eligible based COMBINED SERIES on patient's age to complete this to [facility] documented as of this encounter Results Not on filedocumented in this encounter
--- OUTSIDE RECORDS SUMMARY | 2019-11-21 02:37 | XMS REPORT | Clinical Summary ---
:1975 Author Organization [facility] Address [address] [place] [address] Care Team Providers Name Role Phone Robert Ambrose [facility] Primary Care Provid er Allergies Active Allergy Reactions Severity Noted Date Comments Sulfa (Sulfonamide Antibiotics) Hives 9 Medications Medication Sig Dispensed Refills Start Date [...] for Generalized anxiety anxiety or panic. disorder DULoxetine 30 mg Take 1 capsule by 30 capsule 1 08/06/2019 Active capsuleIndications: mouth daily. Take Bipolar 1 disorder, with the 60mg mixed dose for total of 90mg zolpidem 10 mg Take 1 tablet by 30 tablet 0 09/18/2019 Active tabletIndications: mouth at bedtime Insomnia, unspecified as needed for type Insomnia. Active Problems No known active problems Encounters Date Type Specialty Care Team Description 08/26/2019 Patient Secure Msg Nephrology Makenzie Joyner, DO 08/25/2019 Telephone Nephrology Makenzie Joyner, DO Appointm ent; Pre-Visit Planning 08/06/2019 Automatic Profile Shaper Operator Visit Phlebotomy Talha Meneses, Ninfao lar 1 disorder, mixed Pcp-Lab 08/06/2019 Travel 08/06/2019 Orders Only Doctor Unassigned, [place] 07/14/2019 Travel from Last 3 Months Social History Tobacco Use Types Packs/Day Years Used Date Never Smoker Smokeless Tobacco: Never Used Sex Assigned at Date Recorded Not on file Last Filed Vital Signs Vital Sign Reading Time Taken Comments Blood Pressure 128/81 08/06/2019 1:08 PM CDT Pulse 85 08/06/2019 1:08 PM CDT Temperature 36.7 C (98.1 F) 06/05/2018 8:39 AM CDT Respiratory Rate 18 08/06/2019 1:08 PM CDT Oxygen Saturation 99% 06/05/2018 10:35 AM CDT Inhaled Oxygen Concentration - - Weight 97.4 kg (214 lb 12.8 oz) 08/06/2019 1:08 PM CDT Height 157.5 cm (5' 2") 08/06/2019 1:08 PM CDT Body Mass Index 39.29 08/06/2019 1:08 PM CDT Plan of Treatment Health Maintenance Due Date Last Done Comments DTaP,Tdap,and Td Vaccines (1 1996 - Tdap) PAP SMEAR 1998 Breast Cancer Screening 2017 (MAMMOGRAM) INFLUENZA VACCINE (#1) 2019 Depression Screening 08/05/2020 08/06/2019, 08/06/2019 PNEUMOCOCCAL 0-64 YEARS Aged Out No longe r eligible based COMBINED SERIES on patient's age to complete this to pic Procedures Procedure Name Priority Date/Time Associated Comments Diagnosis LITHIUM Routine 08/06/2019 2:33 Bipolar 1 Results for this PM CDT disorder, mixed procedure ar e in the results section. COMP. METABOLIC PANEL Routine 08/06/2019 2:33 Bipolar 1 Re sults for this (96653) PM CDT disorder, mixed procedure ar e in the results section. THYROID STIMULATING Routine 08/06/2019 2:33 Bipolar 1 Resu lts for this HORMONE PM CDT disorder, mixed procedure ar e in the results section. [facility] PATIENT FINANCIAL Routine 08/06/2019 1:08 POLICY PM CDT NO SHOW OR MISSED Routine 08/06/2019 1:03 APPOINTMENT POLICY PM CDT ACKNOWLEDGEMENT NOTICE OF PRIVACY Routine 08/06/2019 1:03 PRACTICES PM CDT CONSENT/REFUSAL FOR Routine 08/06/2019 1:03 DIAGNOSIS AND TREATMENT PM CDT ASSIGNMENT OF BENEFITS Routine 08/06/2019 1:02 PM CDT from Last 3 Months Results LITHIUM (08/06/2019 2:33 PM CDT) Pathologist Sig nature [place] <0.2 (L) 0.6 - 1.2 mmol/L [facility] SERVICES Specimen Blood - ARM, LEFT Narrative Performed At Toxic Range: Greater than 1.2 mmol/L [facility] Performing Organization Address City/State/Zipcode Phone Number [facility] CLIA: [id number] [place] [address] [place] [address] COMP. METABOLIC PANEL (64508) (08/06/2019 2:33 PM CDT) Pathologist Sig nature NA 139 135 - 145 [facility] mmol/L SERVICES K 4.4 3.5 - 5.0 [facility] mmol/L SERVICES CL 103 98 - 108 mmol/L [facility] CO2 TOTAL 28 23 - 31 mmol/L [facility] AGAP 8 2 - 16 [facility] BUN 13 7 - 23 mg/dL [facility] GLUCOSE 118 (H) 70 - 110 mg/dL [facility] CREATININE 0.63 0.50 - 1.04 [facility] mg/dL SERVICES TOTAL BILI 0.3 0.1 - 1.1 mg/dL [facility] CALCIUM 9.7 8.6 - 10.6 [facility] mg/dL SERVICES T PROTEIN 7.3 6.3 - 8.2 g/dL [facility] ALBUMIN 4.1 3.5 - 5.0 g/dL [facility] ALK PHOS 116 34 - 122 U/L [facility] ALTv 23 5 - 35 U/L [facility] AST(SGOT) 23 13 - 40 U/L [facility] eGFR Calculation 103.6 mL/min/1.73m2 [facility] LABOR[facility]ORY (Non- SERVICES [place]) eGFR Calculation 125.6 mL/min/1.73m2 [facility] () SERVICES Specimen Blood - ARM, LEFT Narrative Performed At [facility] of Glomerular Filtration Rate (GFR) and St aging [facility] of Kidney Disease* + + +------- ------ + | GFR (mL/min/1.73 m2) | With Kidney Damage | Wi thout Kidney Damage + + +------- ------ + | >90 | Stage one | Normal + + +------- ------ + | 60-89 | Stage two | Decreased GFR + + +------- ------ + | 30-59 | Stage three | Stage three + + +------- ------ + | 15-29 | Stage four | Stage four + + +------- ------ + | <15 (or dialysis) | Stage five | Stage five + + +------- ------ + *Each stage assumes the associated GFR level has been in effect for at least three months. Stages 1 to 5, wit h or without kidney disease, indicate chronic kidney disease. Notes: Determination of stages one and two (with eGFR >59mL/min/1.73 m2) requires estimation of kidney damag e for at least three months as defined by structural or func tional abnormalities of the kidney, manifested by either: Pathological abnormalities or Markers of kidney damage (including abnormalities in the composition of the blo od or urine or abnormalities in imaging tests) . Performing Organization Address City/[facility] Phone Number [facility] CLIA: [id number] [place] [address] [place] [address] THYROID STIMULATING HORMONE (08/06/2019 2:33 PM CDT) Pathologist [facility] nature TSH 1.37 0.45 - 4.70 mIU/L [facility] SERVICE S Specimen Blood - ARM, LEFT Performing Organization Address [facility] Cent[facility]ode Phone Number [facility] CLIA: [id number] [place] [address] [phone] [address] [facility] PATIENT FINANCIAL POLICY (08/06/2019 1:08 PM CDT) Specimen Performing Organization Address [facility] Cent[facility]ode Phone Number HIM NO SHOW OR MISSED APPOINTMENT POLICY ACKNOWLEDGEMENT (08/06/2019 1:03 PM CDT) Specimen Performing Organization Address [facility] Cent[facility]ode Phone Number HIM NOTICE OF PRIVACY PRACTICES (08/06/2019 1:03 PM CDT) Specimen Performing Organization Address [facility] Cent[facility]ode Phone Number HIM CONSENT/REFUSAL FOR DIAGNOSIS AND TREATMENT (08/06/2019 1:03 PM CDT) Specimen Performing Organization [facility] Phone Number HIM ASSIGNMENT OF BENEFITS (08/06/2019 1:02 PM CDT) Specimen Performing Organization Address City/State/Zipcode Phone Number HIM from Last 3 Months
--- OUTSIDE RECORDS SUMMARY | 2019-11-21 02:37 | XMS REPORT | Clinical Summary ---
:1975 Author Organization [facility] Address [address] [place] [address] Care Team Providers Name Role Phone Robert Ambrose [facility] Primary Care Provid er Allergies Active Allergy Reactions Severity Noted Date Comments Sulfa (Sulfonamide Antibiotics) Hives 9 Medications Medication Sig Dispensed Refills Start Date End Date Status losartan potassium Take by mouth. 0 Active (LOSARTAN ORAL) FUROSEMIDE ORAL Take 40 mg by 0 Active mouth daily. propranolol 80 mg Take 80 mg by 0 Active tablet mouth 2 (two) times daily. allopurinoL 100 mg Take 100 mg by 0 Active tablet mouth daily. atorvastatin 10 mg Take 10 mg by 0 Active tablet mouth at bedtime. lithium carbonate 300 Take 2 tablets by 60 tablet 1 10/01/2019 Active mg tabletIndications: mouth at bedtime. Bipolar 1 disorder, mixed DULoxetine 60 mg Take 60 mg by 30 capsule 1 10/01/2019 Active CDRSIndications: mouth daily. Take Bipolar 1 disorder, with 30 mg mixed, Generalized capsule for total anxiety disorder dose of 90 mg daily. DULoxetine 30 mg Take 1 capsule by 30 capsule 1 10/01/2019 Active capsuleIndications: mouth daily. Take Bipolar 1 disorder, with the 60mg mixed dose for total of 90mg zolpidem 10 mg Take 0.5 tablets 15 tablet 0 10/17/2019 Active tabletIndications: by mouth at Insomnia, unspecified bedtime as needed type for Insomnia. clonazePAM 1 mg Take 1/2 tablet 90 tablet 0 10/01/2019 Active tabletIndications: up to twice Generalized anxiety during the disorder daytime as needed for anxiety. Take up to 2 tablets as needed at bedtime for insomnia. Active Problems No known active problems Encounters Date Type Specialty Care Team Description 08/26/2019 Patient Secure Msg Nephrology Makenzie Joyner, 08/25/2019 Telephone Nephrology Makenzie Joyner, DO Appointm ent; Pre-Visit Planning 08/06/2019 Obstetrics Specialist Visit Phlebotomy Talha Meneses, Bipo lar 1 disorder, MD mixed Pcp-Lab 08/06/2019 Travel 08/06/2019 Orders Only Doctor Unassigned, [place] 07/14/2019 Travel from Last 3 Months Social [...] (MAMMOGRAM) INFLUENZA VACCINE (#1) 2019 Depression Screening 09/30/2020 10/01/2019, 10/01/2019 PNEUMOCOCCAL 0-64 YEARS Aged Out No longe r eligible based COMBINED SERIES on patient's age to complete this to pic Procedures Procedure Name Priority Date/Time Associated Comments Diagnosis LITHIUM Routine 08/06/2019 2:33 Bipolar 1 Results for this PM CDT disorder, mixed procedure ar e in the results section. COMP. METABOLIC PANEL Routine 08/06/2019 2:33 Bipolar 1 Re sults for this ([id number]) PM CDT disorder, mixed procedure ar e in the results section. THYROID STIMULATING Routine 08/06/2019 2:33 Bipolar 1 Resu lts for this HORMONE PM CDT disorder, mixed procedure ar e in the results section. [facility] PATIENT FINANCIAL Routine 08/06/2019 1:08 POLICY PM CDT NO SHOW OR MISSED Routine 08/06/2019 1:03 APPOINTMENT POLICY PM CDT ACKNOWLEDGEMENT NOTICE OF PRIVACY Routine 08/06/2019 1:03 PRACTICES PM CDT CONSENT/REFUSAL FOR Routine 08/06/2019 1:03 DIAGNOSIS AND TREATMENT PM CDT ASSIGNMENT OF BENEFITS Routine 08/06/2019 1:02 PM CDT from Last 3 Months Results LITHIUM (08/06/2019 2:33 PM CDT) Pathologist Sig nature [place] <0.2 (L) 0.6 - 1.2 mmol/L [facility] SERVICES Specimen Blood - ARM, LEFT Narrative Performed At Toxic Range: Greater than 1.2 mmol/L [facility] Performing Organization Address City/State/Zipcode Phone Number [facility] CLIA: [id number] [place] [address] [place] [address] COMP. METABOLIC PANEL ([id number]) (08/06/2019 2:33 PM CDT) Pathologist Sig nature NA 139 135 - 145 [facility] mmol/L SERVICES K 4.4 3.5 - 5.0 [facility] mmol/L SERVICES CL 103 98 - 108 mmol/L [facility] CO2 TOTAL 28 23 - 31 mmol/L [facility] AGAP 8 2 - 16 [facility] BUN 13 7 - 23 mg/dL [facility] GLUCOSE 118 (H) 70 - 110 mg/dL [facility] CREATININE 0.63 0.50 - 1.04 [facility] mg/dL SERVICES TOTAL BILI 0.3 0.1 - 1.1 mg/dL [facility] CALCIUM 9.7 8.6 - 10.6 [facility] mg/dL SERVICES T PROTEIN 7.3 6.3 - 8.2 g/dL [facility] SERVICES ALBUMIN 4.1 3.5 - 5.0 g/dL [facility] ALK PHOS 116 34 - 122 U/L [facility] ALTv 23 5 - 35 U/L [facility] AST(SGOT) 23 13 - 40 U/L [facility] eGFR Calculation 103.6 mL/min/1.73m2 [facility] (Non- SERVICES [place]) eGFR Calculation 125.6 mL/min/1.73m2 [facility] () SERVICES Specimen Blood - ARM, LEFT Narrative Performed At Association of Glomerular Filtration Rate (GFR) and St aging [facility] of Kidney Disease* + [...] in imaging tests) . Performing Organization Address City/[facility] Mex[facility]ode Phone Number [facility] CLIA: [id number] [place] [address] [place] [address] THYROID STIMULATING HORMONE (08/06/2019 2:33 PM CDT) [facility] TSH 1.37 0.45 - 4.70 mIU/L [facility] SERVICE S Specimen Blood - ARM, LEFT Performing Organization Address [facility] Mex[facility]ode Phone Number [facility] CLIA: [id number] [place] [address] [place] [address] PATIENT FINANCIAL POLICY (08/06/2019 1:08 PM CDT) Specimen Performing Organization Address City/State/[facility] Mex[facility]ode Phone Number HIM NO SHOW OR MISSED APPOINTMENT POLICY ACKNOWLEDGEMENT (08/06/2019 1:03 PM CDT) Specimen Performing Organization Address [facility]ode Phone Number HIM NOTICE OF PRIVACY PRACTICES (08/06/2019 1:03 PM CDT) Specimen Performing Organization Address [facility] Mex[facility]ode Phone Number HIM CONSENT/REFUSAL FOR DIAGNOSIS AND TREATMENT (08/06/2019 1:03 PM CDT) Specimen Performing Organization Address [facility]/State/Zipcode Phone Number HIM ASSIGNMENT OF BENEFITS (08/06/2019 1:02 PM CDT) Specimen Performing Organization Address City/State/Zipcode Phone Number HIM from Last 3 Months
--- OUTSIDE RECORDS SUMMARY | 2019-11-21 02:37 | XMS REPORT | Clinical Summary ---
:1975 Author Organization [facility] Address [address] [place] [address] Care Team Providers Name Role Phone Robert Ambrose [facility] Primary Care Provid er Allergies Active [...] unspecified as needed for type Insomnia. DULoxetine 60 mg Take 60 mg by 30 capsule 1 09/26/2019 Active CDRSIndications: mouth daily. Take Bipolar 1 disorder, with 30 mg mixed, Generalized capsule for total anxiety disorder dose of 90 mg daily. lithium carbonate 300 Take 1 tablet by 30 tablet 1 09/26/2019 Active mg tabletIndications: mouth at bedtime. Bipolar 1 disorder, mixed Active Problems No known active problems Encounters Date Type Specialty Care Team Description 08/26/2019 Patient Secure Msg Nephrology Makenzie Joyner DO 08/25/2019 Telephone Nephrology Makenzie Joyner, Appointm ent; Pre-Visit Planning 08/06/2019 Hat Steamer Visit Phlebotomy Talha Meneses, Ninfao lar 1 disorder, mixed Pcp-Lab 08/06/2019 Travel 08/06/2019 Orders Only Doctor Unassigned, [place] 07/14/2019 Travel from Last 3 Months Social [...] 2:33 Bipolar 1 Re sults for this ([id number]) PM CDT disorder, mixed procedure ar e in the results section. THYROID STIMULATING Routine 08/06/2019 2:33 Bipolar 1 Resu lts for this HORMONE PM CDT disorder, mixed procedure ar e in the results section. [facility] PATIENT FINANCIAL Routine 08/06/2019 1:08 POLICY PM CDT NO SHOW OR MISSED Routine 08/06/2019 1:03 APPOINTMENT POLICY PM CDT ACKNOWLEDGEMENT NOTICE OF PRIVACY Routine 08/06/2019 1:03 PRACTICES PM CDT CONSENT/REFUSAL FOR Routine 08/06/2019 1:03 DIAGNOSIS AND TREATMENT PM CDT ASSIGNMENT OF BENEFITS Routine 08/06/2019 1:02 PM CDT from Last 3 Months Results LITHIUM (08/06/2019 2:33 PM CDT) Pathologist Sig nature [place] <0.2 (L) 0.6 - 1.2 mmol/L [facility] SERVICES Specimen Blood - ARM, LEFT Narrative Performed At Toxic Range: Greater than 1.2 mmol/L [facility] Performing Organization Address City/State/Zipcode Phone Number [facility] CLIA: [id number] [place] [address] [place] [address] COMP. METABOLIC PANEL ([id number]) (08/06/2019 2:33 PM CDT) Pathologist Sig nature NA 139 135 - 145 [facility] mmol/L SERVICES K 4.4 3.5 - 5.0 [facility] mmol/L SERVICES CL 103 98 - 108 mmol/L [facility] SERVICES CO2 TOTAL 28 23 - 31 mmol/L [facility] AGAP 8 2 - 16 [facility] BUN 13 7 - 23 mg/dL [facility] SERVICES GLUCOSE 118 (H) 70 - 110 mg/dL [facility] SERVICES CREATININE 0.63 0.50 - 1.04 [facility] mg/dL SERVICES TOTAL BILI 0.3 0.1 - 1.1 mg/dL [facility] SERVICES CALCIUM 9.7 8.6 - 10.6 [facility] mg/dL SERVICES T PROTEIN 7.3 6.3 - 8.2 g/dL [facility] SERVICES ALBUMIN 4.1 3.5 - 5.0 g/dL [facility] SERVICES ALK PHOS 116 34 - 122 U/L [facility] SERVICES ALTv 23 5 - 35 U/L [facility] SERVICES AST(SGOT) 23 13 - 40 U/L [facility] SERVICES eGFR Calculation 103.6 mL/min/1.73m2 [facility] LABOR[facility] (Non- SERVICES [place]) eGFR Calculation 125.6 mL/min/1.73m2 [facility] () SERVICES Specimen Blood - ARM, LEFT Narrative Performed At Association of Glomerular Filtration Rate (GFR) and St aging [facility] SERVICES of Kidney Disease* + [...] in imaging tests) . Performing Organization Address City/[facility] Phone Number [facility] CLIA: [id number] [place] [address] [place] [address] THYROID STIMULATING HORMONE (08/06/2019 2:33 PM CDT) Pathologist [facility] nature TSH 1.37 0.45 - 4.70 mIU/L [facility] SERVICE S Specimen Blood - ARM, LEFT Performing Organization Address [facility] Phone Number [facility] CLIA: [id number] [place] [address] [place] [address] PATIENT FINANCIAL POLICY (08/06/2019 1:08 PM CDT) Specimen Performing Organization Address [facility] Phone Number HIM NO SHOW OR MISSED APPOINTMENT POLICY ACKNOWLEDGEMENT (08/06/2019 1:03 PM CDT) Specimen Performing Organization Address [facility] Phone Number HIM NOTICE OF PRIVACY PRACTICES (08/06/2019 1:03 PM CDT) Specimen Performing Organization Address [facility] Phone Number HIM CONSENT/REFUSAL FOR DIAGNOSIS AND TREATMENT (08/06/2019 1:03 PM CDT) Specimen Performing Organization [facility] Phone Number HIM ASSIGNMENT OF BENEFITS (08/06/2019 1:02 PM CDT) Specimen Performing Organization Address City/State/Zipcode Phone Number HIM from Last 3 Months
--- OUTSIDE RECORDS SUMMARY | 2019-11-21 02:37 | XMS REPORT | Summary of Care ---
:1975 Author Organization [facility] - Health Address [address] [place] [address] Care Team Providers Name Role Phone Robert Ambrose [facility] Primary Care Provid er Encounter Details Date Type Department Care Team Description 10/15/2019 Orders Only [facility] Doctor Unassigned, No [address] [facility] [place] [address] [address] [place] [address] Allergies Active Allergy Reactions Severity Noted Date Comments Sulfa (Sulfonamide Antibiotics) Hives 9 documented as of this encounter (statuses as of 10/15/2019) Medications Medication Sig Dispensed Refills Start Date [...] tablets as needed at bedtime for insomnia. documented as of this encounter (statuses as of 10/15/2019) Active Problems No known active problemsdocumented as of this encounter (statuses as of 10/15/2019) Social History Tobacco Use Types Packs/Day Years Used Date Never Smoker Smokeless Tobacco: Never Used Sex Assigned at Date Recorded Not on file documented as of this encounter Last Filed Vital Signs Not on filedocumented in this encounter Plan of Treatment Date Type Specialty Care Team Description 10/23/2019 Office Visit Psychiatry Barry Dan M D [address] [place] [address]. [place] [address] [phone] Health Maintenance Due Date Last Done Comments DTaP,Tdap,and Td Vaccines (1 1996 - Tdap) PAP SMEAR 1998 Breast Cancer Screening 2017 (MAMMOGRAM) INFLUENZA VACCINE (#1) 2019 Depression Screening 09/30/2020 10/01/2019, 10/01/2019 PNEUMOCOCCAL 0-64 YEARS Aged Out No longe r eligible based COMBINED SERIES on patient's age to complete this to [facility] documented as of this encounter Procedures Procedure Name Priority Date/Time Associated Diagnosis Comme nts ASSIGNMENT OF BENEFITS Routine 10/15/2019 11:38 AM CDT documented in this encounter Results Not on filedocumented in this encounter
--- OUTSIDE RECORDS SUMMARY | 2019-11-21 02:38 | XMS REPORT | Summary of Care ---
:1975 Author Organization [facility] Address [address] [place] [address] Care Team Providers Name Role Phone Robert Ambrose [facility] Primary Care Provid er Reason for Visit Reason Comments LAB WORK Auth/Cert Status Reason Specialty Diagnoses / Procedures Referred By Dk ashley Referred To Contact Phlebotomy Diagnoses Bipolar 1 disorder, mixed Adc Pob Lab Draw Procedures LITHIUM Professional Office Building [address] , [address] [place] [address] Phone: Fax: Encounter Details Date Type Department Care Team Description 10/15/2019 Program Eligibility Specialist Visit [facility] Robert Shepherd MD [facility] [address] Bipolar 1 disorder, Professional Office Pob, Adc Lab Main mixed Building Phlebotomy Lab Professional Office Building [address] [facility] , [address] [place] [address] Allergies Active Allergy Reactions Severity Noted Date Comments Sulfa (Sulfonamide Antibiotics) Hives 9 documented as of this encounter (statuses as of 10/31/2019) Medications Medication Sig Dispensed Refills Start Date [...] as of this encounter (statuses as of 10/31/2019) Active Problems No known active problemsdocumented as of this encounter (statuses as of 10/31/2019) Social History Tobacco Use Types Packs/Day Years Used Date Never Smoker Smokeless Tobacco: Never Used Sex Assigned at Date Recorded Not on file COVID-19 Exposure Response Date Recorded In the last month, have you been in contact with No / Unsure 10/15/2019 11:46 AM CDT someone who was confirmed or suspected to have Coronavirus / COVID-19? documented as of this encounter Last Filed Vital Signs Not on filedocumented in this encounter Nursing Notes Angela Chacon - 10/15/2019 11:30 AM CDT Venipuncture collection performed by clean technique on the left anticubitus. Total of 1 attempts were made. Slight pressure and a bandage/dressing were applied to the site(s). The patient experienced no complications. The following specimens were processed according to instructions and sent to [facility] laboratories per lab order on today: LT BLUE SST 1 RED LAV PPT DK GREEN (LiHep) DK GREEN (SodH) SUE DK BLUE (K2) DK BLUE (S) ACD Blood Culture NIPT/NTD documented in this encounter Plan of Treatment Date Type Specialty Care Team Description 12/05/2019 Office Visit Psychiatry Barry Dan M D [address] [place], [place] [address]d. Sebastian MD [phone] Health Maintenance Due Date Last Done Comments DTaP,Tdap,and Td Vaccines (1 1996 - Tdap) PAP SMEAR 1998 Breast Cancer Screening 2017 (MAMMOGRAM) INFLUENZA VACCINE (#1) 2019 Depression Screening 09/30/2020 10/01/2019, 10/01/2019 PNEUMOCOCCAL 0-64 YEARS Aged Out No longe r eligible based COMBINED SERIES on patient's age to complete this to [facility] documented as of this encounter Procedures Procedure Name Priority Date/Time Associated Diagnosis Comme nts LITHIUM Routine 10/15/2019 11:56 AM Bipolar 1 disorder, R esults for this CDT mixed procedure are i n the results section . documented in this encounter Results LITHIUM (10/15/2019 11:56 AM CDT) Pathologist Sig nature [place] 0.4 (L) 0.6 - 1.2 mmol/L [facility] Specimen Blood Narrative Performed At Toxic Range: Greater than 1.2 mmol/L [facility] Performing Organization Address City/State/Zipcode Phone Number [facility] CLIA: [id number] [place], [place] [id number] LABORATORY [address] documented in this encounter Visit Diagnoses Diagnosis Bipolar 1 disorder, mixed Bipolar I disorder, most recent episode (or current) mixed, unspecified documented in this encounter
--- OUTSIDE RECORDS SUMMARY | 2019-11-21 02:38 | XMS REPORT | Clinical Summary ---
:1975 Author Organization [facility] Address [address] [place] [address] Care Team Providers Name Role Phone Robert Arnol [facility] Primary Care Provid er Allergies Active [...] Encounters Date Type Specialty Care Team Description 10/15/2019 [place] Former Visit Phlebotomy Robert Shepherd Bipolar 1 disorder, MD [place] mixed Pob, Adc Lab Main 10/15/2019 Travel 10/15/2019 Orders Only Doctor Unassigned, [place] 08/26/2019 Patient Secure Msg Nephrology Makenzie Joyner, DO 08/25/2019 Telephone Nephrology Makenzie Joyner, DO Appointm ent; Pre-Visit Planning 08/06/2019 [place] Former Visit Phlebotomy Talha Meneses, Bipo lar 1 disorder, mixed Pcp-Lab 08/06/2019 Travel 08/06/2019 Orders Only Doctor Unassigned, [place] from Last 3 Months Social History Tobacco Use Types Packs/Day Years Used Date Never Smoker Smokeless Tobacco: Never Used Sex Assigned at Date Recorded Not on file COVID-19 Exposure Response Date Recorded In the last month, have you been in contact with No / Unsure 10/15/2019 11:46 AM CDT someone who was confirmed or suspected to have Coronavirus / COVID-19? Last Filed Vital Signs Vital Sign Reading [...] Priority Date/Time Associated Comments Diagnosis LITHIUM Routine 10/15/2019 11:56 Bipolar 1 Results for this AM CDT disorder, mixed procedure ar e in the results section. CONSENT/REFUSAL FOR Routine 10/15/2019 11:38 DIAGNOSIS AND TREATMENT AM CDT ASSIGNMENT OF BENEFITS Routine 10/15/2019 11:38 AM CDT LITHIUM Routine 08/06/2019 2:33 Bipolar 1 Results for this PM CDT disorder, mixed procedure ar e in the results section. COMP. METABOLIC PANEL Routine 08/06/2019 2:33 Bipolar 1 Re sults for this (30834) PM CDT disorder, mixed procedure ar e in the results section. THYROID STIMULATING Routine 08/06/2019 2:33 Bipolar 1 Resu lts for this HORMONE PM CDT disorder, mixed procedure ar e in the results section. [facility] PATIENT FINANCIAL Routine 08/06/2019 1:08 POLICY PM CDT NO SHOW OR MISSED Routine 08/06/2019 1:03 APPOINTMENT POLICY PM CDT ACKNOWLEDGEMENT NOTICE OF PRIVACY Routine 08/06/2019 1:03 PRACTICES PM CDT CONSENT/REFUSAL FOR Routine 08/06/2019 1:03 DIAGNOSIS AND TREATMENT PM CDT ASSIGNMENT OF BENEFITS Routine 08/06/2019 1:02 PM CDT from Last 3 Months Results LITHIUM (10/15/2019 11:56 AM CDT)Only the most recent of2 resultswithin the time period is included. Pathologist Sig Contract Live [place] 0.4 (L) 0.6 - 1.2 mmol/L [facility] Specimen Blood Narrative Performed At Toxic Range: Greater than 1.2 mmol/L [facility] Performing Organization Address City/[facility] Phone Number [facility] CLIA: [id number] [place] [address] CONSENT/REFUSAL FOR DIAGNOSIS AND TREATMENT (10/15/2019 11:38 AM CDT)Only the most recent of2 resultswithin the time period is included. Specimen Performing Organization Address City/State/Zipcode Phone Number [facility] ASSIGNMENT OF BENEFITS (10/15/2019 11:38 AM CDT)Only the most recent of2 results within the time period is included. Specimen Performing Organization Address City/State/Zipcode Phone Number HIM COMP. METABOLIC PANEL ([id number]) (08/06/2019 2:33 PM CDT) Pathologist Sig Contract Live NA [phone] [facility] LABORATORY mmol/L SERVICES K 4.4 3.5 - 5.0 [facility] mmol/L SERVICES CL 103 98 - 108 mmol/L [facility] SERVICES CO2 TOTAL 28 23 - 31 mmol/L [facility] SERVICES AGAP 8 2 - 16 [facility]ORAT[facility] SERVICES BUN 13 7 - 23 mg/dL [facility]ORAT[facility] SERVICES GLUCOSE 118 (H) 70 - 110 mg/dL [facility] LABORAT[facility] SERVICES CREATININE 0.63 0.50 - 1.04 [facility] LABORATORY mg/dL SERVICES TOTAL BILI 0.3 0.1 - 1.1 mg/dL [facility] LABORAT[facility] SERVICES CALCIUM 9.7 8.6 - 10.6 [facility]ORY mg/dL SERVICES T PROTEIN 7.3 6.3 - 8.2 g/dL [facility] LABORAT[facility] SERVICES ALBUMIN 4.1 3.5 - 5.0 g/dL [facility] LABORAT[facility] SERVICES ALK PHOS 116 34 - 122 U/L [facility] LAB[facility]AT[facility] SERVICES ALTv 23 5 - 35 U/L [facility] LABORATORY SERVICES AST(SGOT) 23 13 - 40 U/L [facility] LAB[facility] SERVICES eGFR Calculation 103.6 mL/min/1.73m2 [facility] LABORATORY (Non- SERVICES [place]) eGFR Calculation 125.6 mL/min/1.73m2 [facility] LAB[facility]ATORY () SERVICES Specimen Blood - ARM, LEFT Narrative Performed At Association of Glomerular Filtration Rate (GFR) and St aging [facility] LABORATORY SERVICES of Kidney Disease* [...] in imaging tests) . Performing Organization Address City/State/Zipcode Phone Number [facility] LABORATORY SERVICES CLIA: [id number] [place] [address] [phone] [address] [facility] THYROID STIMULATING HORMONE (08/06/2019 2:33 PM CDT) Pathologist Sig nature TSH 1.37 0.45 - 4.70 mIU/L [facility] LABORAT[facility] SERVICE S Specimen Blood - ARM, LEFT Performing Organization Address City/State/Zipcode Phone Number [facility] SERVICES CLIA: [id number] [place] [address] [phone] 301 [facility] PATIENT FINANCIAL POLICY (08/06/2019 1:08 PM CDT) Specimen Performing Organization Address City/State/Zipcode Phone Number [facility] NO SHOW OR MISSED APPOINTMENT POLICY ACKNOWLEDGEMENT (08/06/2019 1:03 PM CDT) Specimen Performing Organization Address City/State/Zipcode Phone Number HIM NOTICE OF PRIVACY PRACTICES (08/06/2019 1:03 PM CDT) Specimen Performing Organization Address City/State/Zipcode Phone Number HIM from Last 3 Months
--- OUTSIDE RECORDS SUMMARY | 2019-11-21 02:38 | XMS REPORT | Clinical Summary ---
:1975 Author [address] 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 Visit Phlebotomy Robert Shepherd Bipolar 1 disorder, MD [place] mixed Pob, Adc Lab Main 10/15/2019 Travel 10/15/2019 Orders Only Doctor Unassigned, [place] 08/26/2019 Patient Secure Msg Nephrology Makenzie Joyner, DO 08/25/2019 Telephone Nephrology Makenzie Joyner, DO Appointm ent; Pre-Visit Planning 08/06/2019 Sort Supervisor Visit Phlebotomy Talha Meneses, Bipo lar 1 disorder, mixed Pcp-Lab 08/06/2019 Travel 08/06/2019 Orders Only Doctor Unassigned, [place] from Last 3 Months Social History Tobacco [...] 2:33 Bipolar 1 Re sults for this (20365) PM CDT disorder, mixed procedure ar e in the results section. THYROID STIMULATING Routine 08/06/2019 2:33 Bipolar 1 Resu lts for this HORMONE PM CDT disorder, mixed procedure ar e in the results section. [facility] PATIENT FINANCIAL Routine 08/06/2019 [...] the time period is included. Pathologist Sig [email or web address] [place] 0.4 (L) 0.6 - 1.2 mmol/L [facility] Specimen Blood Narrative Performed At Toxic Range: Greater than 1.2 mmol/L [facility] Performing Organization Address City/[facility] Hospitalcode Phone Number [facility] CLIA: [id number] [place] [address] CONSENT/REFUSAL FOR DIAGNOSIS AND TREATMENT (10/15/2019 11:38 AM CDT)Only the most recent of2 resultswithin the time period is included. Specimen Performing Organization Address City/State/Zipcode Phone Number HIM ASSIGNMENT OF BENEFITS (10/15/2019 11:38 AM CDT)Only the most recent of2 results within the time period is included. Specimen Performing Organization Address City/State/Zipcode Phone Number [facility] COMP. METABOLIC PANEL ([id number]) (08/06/2019 2:33 PM CDT) Pathologist Sig [email or web address] NA 139 135 - 145 [facility] LABORATORY mmol/L SERVICES K 4.4 3.5 - 5.0 [facility] LAB[facility]ATORY mmol/L SERVICES CL 103 98 - 108 mmol/L [facility]AT[facility] SERVICES CO2 TOTAL 28 23 - 31 mmol/L [facility] LABORAT[facility] SERVICES AGAP 8 2 - 16 [facility]AT[facility] SERVICES BUN 13 7 - 23 mg/dL [facility]AT[facility] SERVICES GLUCOSE 118 (H) 70 - 110 mg/dL [facility] LABORATORY SERVICES CREATININE 0.63 0.50 - 1.04 [facility] mg/dL SERVICES TOTAL BILI 0.3 0.1 - 1.1 mg/dL [facility] LABORAT[facility] SERVICES CALCIUM 9.7 8.6 - 10.6 [facility] mg/dL SERVICES T PROTEIN 7.3 6.3 - 8.2 g/dL [facility] LAB[facility]AT[facility] SERVICES ALBUMIN 4.1 3.5 - 5.0 g/dL [facility] LABORATORY SERVICES ALK PHOS 116 34 - 122 U/L [facility] LABORAT[facility] SERVICES ALTv 23 5 - 35 U/L [facility] LAB[facility]AT[facility] SERVICES AST(SGOT) 23 13 - 40 U/L [facility] LAB[facility]AT[facility] SERVICES eGFR Calculation 103.6 mL/min/1.73m2 [facility] LABORATORY (Non- SERVICES [place]) eGFR Calculation 125.6 mL/min/1.73m2 [facility] () SERVICES Specimen Blood - ARM, LEFT Narrative Performed At Association of Glomerular Filtration Rate (GFR) and St aging [facility] LABORATORY SERVICES of Kidney [...] . Performing Organization Address City/State/Zipcode Phone Number [facility] LABORAT[facility] SERVICES CLIA: [id number] [place] [address] [phone] [facility] THYROID STIMULATING HORMONE (08/06/2019 2:33 PM CDT) Pathologist Sig nature TSH 1.37 0.45 - 4.70 mIU/L [facility] LABORATORY SERVICE S Specimen Blood - ARM, LEFT Performing Organization Address City/State/Zipcode Phone Number [facility] LABORAT[facility] SERVICES CLIA: [id number] [place] [address] [phone] 301 [facility] PATIENT FINANCIAL POLICY (08/06/2019 1:08 PM CDT) Specimen Performing Organization Address City/State/Zipcode Phone Number HIM NO SHOW OR MISSED APPOINTMENT POLICY ACKNOWLEDGEMENT (08/06/2019 1:03 PM CDT) Specimen Performing Organization Address City/State/Zipcode Phone Number HIM NOTICE OF PRIVACY PRACTICES (08/06/2019 1:03 PM CDT) Specimen Performing Organization Address City/State/Zipcode Phone Number HIM from Last 3 Months
--- OUTSIDE RECORDS SUMMARY | 2019-11-21 02:38 | XMS REPORT | Clinical Summary ---
:1975 Author Organization [facility] Address [address] [place] [address] Care Team Providers Name Role Phone Robert Arnol [facility] Primary Care Provid er Allergies Active [...] mg Take 1/2 tablet 90 tablet 0 11/18/2019 Active tabletIndications: up to twice Generalized anxiety during the disorder daytime as needed for anxiety. Take up to 2 tablets as needed at bedtime for insomnia. Active Problems No known active problems Encounters Date Type Specialty Care Team Description 10/15/2019 [place] Visit Phlebotomy Robert Shepherd Bipolar 1 disorder, MD [place] mixed Pob, Adc Lab Main 10/15/2019 Travel 10/15/2019 Orders Only Doctor Unassigned, [place] 08/26/2019 Patient Secure Msg Nephrology Makenzie Joyner DO 08/25/2019 Telephone Nephrology Makenzie Joyner, DO Appointm ent; Pre-Visit Planning from Last 3 Months Social History Tobacco [...] Associated Comments Diagnosis LITHIUM Routine 10/15/2019 11:56 AM Bipolar 1 disorder, R esults for this CDT mixed procedure are i n the results section. CONSENT/REFUSAL FOR Routine 10/15/2019 11:38 AM DIAGNOSIS AND CDT TREATMENT ASSIGNMENT OF Routine 10/15/2019 11:38 AM BENEFITS CDT from Last 3 Months Results LITHIUM (10/15/2019 11:56 AM CDT) Pathologist Sig nature [place] 0.4 (L) 0.6 - 1.2 mmol/L [facility] Specimen Blood Narrative Performed At Toxic Range: Greater than 1.2 mmol/L [facility] Performing Organization Address City/State/Zipcode Phone Number [facility] CLIA: [id number] [place] [address] CONSENT/REFUSAL FOR DIAGNOSIS AND TREATMENT (10/15/2019 11:38 AM CDT) Specimen Performing Organization Address City/[facility]/Zipcode Phone Number HIM ASSIGNMENT OF BENEFITS (10/15/2019 11:38 AM CDT) Specimen Performing Organization Address City/[facility]/Zipcode Phone Number HIM from Last 3 Months
== END 2019-11-20 12:34 | disposition home or self-care (01) ==
LOC: ER 10:06
DX: K29.70 Gastritis, unspecified, without bleeding (principal); I10 Essential (primary) hypertension; E78.00 Pure hypercholesterolemia, unspecified; F31.9 Bipolar disorder, unspecified; F17.210 Nicotine dependence, cigarettes, uncomplicated
CPT/HCPCS: 36415; 80048; 80076; 80178; 81003; 81015; 81025; 83690; 84484; 85025; 93005; 96360; 99284; J7040

== ENCOUNTER 2020-02-26 12:17 | Emergency (ER) | payer SELFPAY ==
--- OUTSIDE RECORDS SUMMARY | 2020-02-26 12:27 | XMS REPORT | Clinical Summary ---
:1975 Author Organization [facility] Address [address] [place] [address] Care Team Providers Name Role Phone Pcp, Does Not Have A Primary Care Provider Allergies Active Allergy Reactions Severity Noted Date [...] 60mg mixed dose for total of 90mg clonazePAM 1 mg Take 1/2 tablet 90 tablet 0 11/18/2019 Active tabletIndications: up to twice Generalized anxiety during the disorder daytime as needed for anxiety. Take up to 2 tablets as needed at bedtime for insomnia. zolpidem 10 mg Take 0.5 tablets 15 tablet 0 12/04/2019 Active tabletIndications: by mouth at Insomnia, unspecified bedtime as needed type for Insomnia. 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 SENATOR someone who was confirmed or suspected to have Coronavirus / COVID-19? Last Filed Vital Signs Vital Sign Reading Time Taken Comments Blood Pressure 139/84 12/22/2019 11:58 AM U.S. SENATOR Pulse 69 12/22/2019 11:58 AM U.S. SENATOR Temperature 37 C (98.6 F) 12/22/2019 10:05 AM U.S. SENATOR Respiratory Rate 18 12/22/2019 11:58 AM U.S. SENATOR Oxygen Saturation 99% 12/22/2019 11:58 AM U.S. SENATOR Inhaled Oxygen Concentration - - Weight 79.4 kg (175 lb 0.6 oz) 12/22/2019 10:05 AM U.S. SENATOR Height 157.5 cm (5' 2") 12/22/2019 8:41 AM U.S. SENATOR Body Mass Index 32.01 12/22/2019 8:41 AM U.S. SENATOR Plan of Treatment Health Maintenance Due Date Last Done Comments DTaP,Tdap,and Td Vaccines (1 1996 - Tdap) PAP SMEAR 1998 Breast Cancer Screening 2017 (MAMMOGRAM) INFLUENZA VACCINE (#1) 2019 Depression Screening 12/21/2020 12/22/2019, 12/22/2019 PNEUMOCOCCAL 0-64 YEARS Aged Out No longe r eligible based COMBINED SERIES on patient's age to complete this to pic Procedures The patient is currently admitted. The information in this section might not be complete until the patient is discharged. Procedure Name Priority Date/Time Associated Comments Diagnosis GALV/CLC ONLY - URINE STAT 12/22/2019 11:15 Suicidal ideati on Results for this DRUG (IMMUNOASSAY) - AM U.S. SENATOR procedu re are in COMPREHENSIVE DRUG the resul ts SCREEN section. POCT TEST SKYLAR 12/22/2019 11:15 Suicidal ideation Results for this AM U.S. SENATOR procedure are i n the results section. URINALYSIS STAT 12/22/2019 11:15 Suicidal ideation Result s for this AM U.S. SENATOR procedure are i n the results section. ACETAMINOPHEN STAT 12/22/2019 11:15 Suicidal ideation Resul ts for this AM U.S. SENATOR procedure are i n the results section. SALICYLATE STAT 12/22/2019 11:15 Suicidal ideation Result s for this AM U.S. SENATOR procedure are i n the results section. COMP. METABOLIC PANEL STAT 12/22/2019 11:15 Suicidal ideati on Results for this (04174) AM U.S. SENATOR procedure are i n the results section. CBC WITH DIFF STAT 12/22/2019 11:15 Suicidal ideation Resul ts for this AM U.S. SENATOR procedure are i n the results section. LITHIUM Routine 10/15/2019 11:56 Bipolar 1 disorder, Resu lts for this AM CDT mixed procedure are i n the results section. CONSENT/REFUSAL FOR Routine 10/15/2019 11:38 DIAGNOSIS AND AM CDT TREATMENT ASSIGNMENT OF BENEFITS Routine 10/15/2019 11:38 AM CDT from Last 3 Months Results POCT TEST (12/22/2019 11:15 AM U.S. SENATOR) Pathologist Sig nature POCT PREG negative On board controls acceptable present with C Line POCT PREG LOT # [id number] POCT PREG TEST DATE 2021-06-11 Specimen Urine - URINE, CLEAN CATCH URINALYSIS (12/22/2019 11:15 AM U.S. SENATOR) Pathologist Sig nature APPEARANCE Clear Clear [facility] COLOR Yellow Yellow [facility] PH 6.0 4.8 - 8.0 [facility] SP GRAVITY 1.011 1.003 - 1.030 [facility] GLU U QUAL Normal Normal [facility] BLOOD 1+ (A) Negative [facility] KETONES Negative Negative [facility] PROTEIN Negative Negative [facility] UROBILIN Normal Normal [facility] BILIRUBIN Negative Negative [facility] NITRITE Negative Negative [facility] LEUK VISHAL Negative Negative [facility] RBC/HPF 3 0 - 3 HPF [facility] WBC/HPF 1 0 - 5 HPF [facility] BACTERIA Few (A) Negative [facility] SQ EPITH <1 <=2 HPF [facility] Specimen Urine - URINE, CLEAN CATCH Performing Organization Address City/State/Zipcode Phone Number [facility] CLIA: [id number] [place] [address] [place] [address] CBC WITH DIFF (12/22/2019 11:15 AM U.S. SENATOR) Pathologist Sig nature WBC 6.88 4.30 - 11.10 [facility] 10*3/L SERVICES RBC 4.31 3.93 - 5.25 [facility] 10*6/L SERVICES HGB 11.7 11.6 - 15.0 g/dL [facility] HCT 35.9 35.7 - 45.2 % [facility] MCV 83.3 80.6 - 95.5 fL [facility] MCH 27.1 25.9 - 32.8 pg [facility] MCHC 32.6 31.6 - 35.1 g/dL [facility] RDW-SD 43.3 39.0 - 49.9 fL [facility] RDW-CV 14.4 12.0 - 15.5 % [facility] PLT 276 166 - 358 [facility] 10*3/L SERVICES MPV 12.1 9.5 - 12.9 fL [facility] NRBC/100 WBC 0.0 0.0 - 10.0 /100 [facility] WBCs SERVICES NRBC x10^3 <0.01 10*3/L [facility] GRAN MAT (NEUT) % 63.5 % [facility] IMM GRAN % 0.60 % [facility] LYMPH % 24.0 % [facility] MONO % 6.3 % [facility] EOS % 4.7 % [facility] BASO % 0.9 % [facility] GRAN MAT x10^3(ANC) 4.38 1.88 - 7.09 [facility] 10*3/uL SERVICES IMM GRAN x10^3 0.04 0.00 - 0.06 [facility] 10*3/uL SERVICES LYMPH x10^3 1.65 1.32 - 3.29 [facility] 10*3/uL SERVICES MONO x10^3 0.43 0.33 - 0.92 [facility] 10*3/uL SERVICES EOS x10^3 0.32 0.03 - 0.39 [facility] 10*3/uL SERVICES BASO x10^3 0.06 0.01 - 0.07 [facility] 10*3/uL SERVICES Specimen Blood - VENOUS Performing Organization Address [facility] Phone Number [facility] CLIA: [id number] [place] [address] [place] [address] DRUG PANEL 2 URINE (12/22/2019 11:15 AM U.S. SENATOR) Pathologist Sig nature AMPHET Negative Negative [facility] EMILIANA U Negative Negative [facility] BENZO U Negative Negative [facility] Cocaine Metabolite Negative Negative [facility] SERVIC ES METHADONE Negative Negative [facility] OPIATES Negative Negative [facility] PCP Negative Negative [facility] THC Negative Negative [facility] Specimen Urine - URINE, CLEAN CATCH Narrative Performed At Urine Drug Cutoff Ranges [facility] Cocaine: 150 ng/mL Benzodiazepines: 200 ng/mL Methadone: 300 ng/mL Amphetamine: 1,000 ng/mL Opiates: 300 ng/mL Cannabinoids: 50 ng/mL Phencyclidine: 25 ng/mL Barbiturates: 200 ng/mL The results are to be used only for medical (i.e., treatment) purposes. Unconfirmed screening results mus t not be used for non-medical purposes (e.g., employment aram ting, legal testing). Performing Organization Address [facility] Phone Number [facility] CLIA: [id number] [place] [address] [place] [address] SALICYLATE (12/22/2019 11:15 AM U.S. SENATOR) Pathologist Sig nature SALICYLATE <10 mg/L [facility] Specimen Blood - VENOUS Narrative Performed At Therapeutic Range: [facility] Analgesic and Antipyretic Use 20-100 mg/L Anti-Inflammatory Use 1 00-250 mg/L Toxic Range: Greater than 300 mg/L Performing Organization Address City/[facility] Phone Number [facility] CLIA: [id number] [place] [address] [place] [address] ACETAMINOPHEN (12/22/2019 11:15 AM U.S. SENATOR) Pathologist Sig nature ACETAMINOP <10.0 (L) 10.0 - 30.0 ug/mL [facility] S Specimen Blood - VENOUS Narrative Performed At [facility]: Greater than 200 ug/mL @ 4 hour post ingestion or [facility] greater than 50 ug/mL @ 12 hour post ingestion Performing Organization Address City/State/Zipcode Phone Number [facility] CLIA: [id number] [place] [address] [place] [address] COMP. METABOLIC PANEL (26537) (12/22/2019 11:15 AM U.S. SENATOR) Pathologist Sig nature NA 137 135 - 145 mmol/L [facility] K 4.3 3.5 - 5.0 mmol/L [facility] CL 103 98 - 108 mmol/L [facility] CO2 TOTAL 27 23 - 31 mmol/L [facility] AGAP 7 2 - 16 [facility] BUN 10 7 - 23 mg/dL [facility] GLUCOSE 92 70 - 110 mg/dL [facility] CREATININE 0.60 0.50 - 1.04 [facility] mg/dL SERVICES TOTAL BILI 0.4 0.1 - 1.1 mg/dL [facility] CALCIUM 9.4 8.6 - 10.6 mg/dL [facility] T PROTEIN 7.0 6.3 - 8.2 g/dL [facility] ALBUMIN 4.0 3.5 - 5.0 g/dL [facility] ALK PHOS 114 34 - 122 U/L [facility] ALTv 27 5 - 35 U/L [facility] AST(SGOT) 26 13 - 40 U/L [facility] eGFR Calculation 109.6 mL/min/1.73m2 [facility] (Non-) SERVICES eGFR Calculation 132.9 mL/min/1.73m2 [facility] () SERVICES Specimen Blood - VENOUS Narrative Performed At Association of Glomerular Filtration Rate (GFR) and St aging [facility] of Kidney Disease* + + [...] . Performing Organization Address City/State/Zipcode Phone Number [facility] CLIA: [id number] [place] [address] [place] [address] LITHIUM (10/15/2019 11:56 AM CDT) Pathologist Sig nature [place] 0.4 (L) 0.6 - 1.2 mmol/L [facility] Specimen Blood Narrative Performed At Toxic Range: Greater than 1.2 mmol/L [facility] Performing Organization Address City/State/Zipcode Phone Number [facility] CLIA: [id number] [place] [address] CONSENT/REFUSAL FOR DIAGNOSIS AND TREATMENT (10/15/2019 11:38 AM CDT) Specimen Performing Organization Address City/State/Zipcode Phone Number HIM ASSIGNMENT OF BENEFITS (10/15/2019 11:38 AM CDT) Specimen Performing Organization Address City/[facility]/Zipcode Phone Number HIM from Last 3 Months Additional Health Concerns Infection Onset Date Last Indicated Resolved Time COVID-19 Rule Out 12/22/2019 12/22/2019
--- OUTSIDE RECORDS SUMMARY | 2020-02-26 12:27 | XMS REPORT | Continuity of Care Document ---
:1975 Author Organization [facility] t Address [address] [place] [address] Care Team Providers Name Role Phone Unavailable [...] VERY HIGH.........>/ = 190 mg/dL Comments to [facility]: ADD TO AM LABSLIPID PROFILE (CORONARY RISK)2018-07-20 [...] MG/DL 0-99 code = LDL) Comments to [facility]: ADD TO AM LABSPROTHROMBIN [id number] 06:24:00 Test Item Value Reference Range Interpretation [...] karla embolism. 3.0 - 4.5 Comments to [facility]: NURSE WILL BRING SPECIMEN TO LABPTT ACTIVATED 2018-07-20 06:24:00 Test Item Value Reference Range Interpretation Comments PTT ACTIVATED (test code = APTT) 29.3 SECONDS 22.0-33.0 N Comments to [facility]: [facility]SE [facility] 2018-07-20 06:13:00 Test Item Value [...] 9.6 MG/DL 8.4-10.2 N CA) Comments to [facility]: NURSE WILL BRING SPECIMEN TO LAB Comments to [facility]: NURSE WILL BRING SPECIMEN TO [id number] 06:13:00 Test Item Value Reference Range Interpretation Comments MAGNESIUM (test code = MAG) 2.2 MG/DL 1.6-2.3 N Comments to [facility]: NURSE WILL BRING SPECIMEN TO LAB Comments to [facility]: NURSE WILL BRING SPECIMEN TO LABCBC W/AUTO [id number] 06:02:00 Test Item Value Reference Range Interpretation [...]
--- OUTSIDE RECORDS SUMMARY | 2020-02-26 12:27 | XMS REPORT | Clinical Summary ---
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 Last Filed Vital Signs Vital Sign Reading Time Taken Comments Blood Pressure 139/84 12/22/2019 11:58 AM CHEMICAL PROCESSING LABORER Pulse 69 12/22/2019 11:58 AM CHEMICAL PROCESSING LABORER Temperature 37 C (98.6 F) 12/22/2019 10:05 AM CHEMICAL PROCESSING LABORER Respiratory Rate 18 12/22/2019 11:58 AM CHEMICAL PROCESSING LABORER Oxygen Saturation 99% 12/22/2019 11:58 AM CHEMICAL PROCESSING LABORER Inhaled Oxygen Concentration - - Weight 79.4 kg (175 lb 0.6 oz) 12/22/2019 10:05 AM CHEMICAL PROCESSING LABORER Height 157.5 cm (5' 2") 12/22/2019 8:41 AM CHEMICAL PROCESSING LABORER Body Mass Index 32.01 12/22/2019 8:41 AM CHEMICAL PROCESSING LABORER Plan of Treatment Health Maintenance Due Date [...] Results for this DRUG (IMMUNOASSAY) - AM CHEMICAL PROCESSING LABORER procedu re are in COMPREHENSIVE DRUG the resul ts SCREEN section. POCT TEST SKYLAR 12/22/2019 11:15 Suicidal ideation Results for this AM CHEMICAL PROCESSING LABORER procedure are i n the results section. URINALYSIS STAT 12/22/2019 11:15 Suicidal ideation Result s for this AM CHEMICAL PROCESSING LABORER procedure are i n the results section. ACETAMINOPHEN STAT 12/22/2019 11:15 Suicidal ideation Resul ts for this AM CHEMICAL PROCESSING LABORER procedure are i n the results section. SALICYLATE STAT 12/22/2019 11:15 Suicidal ideation Result s for this AM CHEMICAL PROCESSING LABORER procedure are i n the results section. COMP. METABOLIC PANEL STAT 12/22/2019 11:15 Suicidal ideati on Results for this ([id number]) AM CHEMICAL PROCESSING LABORER procedure are i n the results section. CBC WITH DIFF STAT 12/22/2019 11:15 Suicidal ideation Resul ts for this AM CHEMICAL PROCESSING LABORER procedure are i n the results section. LITHIUM Routine 10/15/2019 11:56 Bipolar 1 disorder, Resu lts for this AM CDT mixed procedure are i n the results section. CONSENT/REFUSAL FOR Routine 10/15/2019 11:38 DIAGNOSIS AND AM CDT TREATMENT ASSIGNMENT OF BENEFITS Routine 10/15/2019 11:38 AM CDT from Last 3 Months Results POCT TEST (12/22/2019 11:15 AM CHEMICAL PROCESSING LABORER) Pathologist Sig nature POCT PREG negative On board controls acceptable present with C Line POCT PREG LOT # [id number] POCT PREG TEST DATE 2021-06-11 Specimen Urine - URINE, CLEAN CATCH URINALYSIS (12/22/2019 11:15 AM CHEMICAL PROCESSING LABORER) Pathologist Sig nature APPEARANCE Clear Clear [facility] [...] City/State/Zipcode Phone Number [facility] CLIA: [id number] [place] [address] [place] [address] CBC WITH DIFF (12/22/2019 11:15 AM CHEMICAL PROCESSING LABORER) Pathologist Sig nature WBC 6.88 4.30 - [...] SERVICES MONO x10^3 0.43 0.33 - 0.92 [facility] 10*3/uL SERVICES EOS x10^3 0.32 0.03 - 0.39 [facility] 10*3/uL SERVICES BASO x10^3 0.06 0.01 - 0.07 [facility] 10*3/uL SERVICES Specimen Blood - VENOUS Performing Organization Address [facility] Phone Number [facility] CLIA: [id number] [place] [address] [place] [address] DRUG PANEL 2 URINE (12/22/2019 11:15 AM CHEMICAL PROCESSING LABORER) Pathologist Sig nature AMPHET Negative Negative [facility] EMILIANA U Negative Negative [facility] BENZO U Negative Negative [facility] Cocaine Metabolite Negative Negative [facility] SERVIC ES METHADONE Negative Negative [facility] OPIATES Negative Negative [facility] PCP Negative Negative [facility] THC Negative Negative [facility] Specimen Urine - URINE, CLEAN CATCH Narrative Performed At Urine Drug Cutoff Ranges [facility] Cocaine: 150 ng/mL Benzodiazepines: 200 ng/mL Methadone: 300 ng/mL Amphetamine: 1,000 ng/mL Opiates: 300 ng/mL Cannabinoids: 50 ng/mL Phencyclidine: 25 ng/mL Barbiturates: 200 ng/mL The results are to be used only for medical (i.e., treatment) purposes. Unconfirmed screening results mus t not be used for non-medical purposes (e.g., employment aram ting, legal testing). Performing Organization Address [facility] Phone Number [facility] CLIA: [id number] [place] [address] [place] [address] SALICYLATE (12/22/2019 11:15 AM CHEMICAL PROCESSING LABORER) Pathologist Sig nature SALICYLATE <10 mg/L [facility] Specimen Blood - VENOUS Narrative Performed At Therapeutic Range: [facility] Analgesic and Antipyretic Use 20-100 mg/L Anti-Inflammatory Use 1 00-250 mg/L Toxic Range: Greater than 300 mg/L Performing Organization Address City/[facility] Phone Number [facility] CLIA: [id number] [place] [address] [place] [address] ACETAMINOPHEN (12/22/2019 11:15 AM CHEMICAL PROCESSING LABORER) Pathologist Sig nature ACETAMINOP <10.0 (L) 10.0 - 30.0 ug/mL [facility] S Specimen Blood - VENOUS Narrative Performed At [facility]: Greater than 200 ug/mL @ 4 hour post ingestion or [facility] greater than 50 ug/mL @ 12 hour post ingestion Performing Organization Address City/State/Zipcode Phone Number [facility] CLIA: [id number] [place] [address] [place] [address] COMP. METABOLIC PANEL ([id number]) (12/22/2019 11:15 AM CHEMICAL PROCESSING LABORER) Pathologist Sig nature NA 137 135 - 145 mmol/L [facility] K 4.3 3.5 - 5.0 mmol/L [facility] CL 103 98 - 108 mmol/L [facility] CO2 TOTAL 27 23 - 31 mmol/L [facility] AGAP 7 2 - 16 [facility] BUN 10 7 - 23 mg/dL [facility] GLUCOSE 92 70 - 110 mg/dL [facility] CREATININE 0.60 0.50 - 1.04 [facility] mg/dL SERVICES TOTAL BILI 0.4 0.1 - 1.1 mg/dL [facility] CALCIUM 9.4 8.6 - 10.6 mg/dL [facility] T PROTEIN 7.0 6.3 - 8.2 g/dL [facility] ALBUMIN 4.0 3.5 - 5.0 g/dL [facility] ALK PHOS 114 34 - 122 U/L [facility] ALTv 27 5 - 35 U/L [facility] AST(SGOT) 26 13 - 40 U/L [facility] eGFR Calculation 109.6 mL/min/1.73m2 [facility] (Non-) SERVICES eGFR Calculation 132.9 mL/min/1.73m2 [facility] () SERVICES Specimen Blood - VENOUS Narrative Performed At Association of Glomerular Filtration Rate (GFR) and St aging [facility] of Kidney Disease* + [...] . Performing Organization Address City/State/Zipcode Phone Number [facility] CLIA: [id number] [place] [address] [place] [address] LITHIUM (10/15/2019 11:56 AM CDT) Pathologist Sig nature [place] 0.4 (L) 0.6 - 1.2 mmol/L [facility] Specimen Blood Narrative Performed At Toxic Range: Greater than 1.2 mmol/L [facility] Performing Organization Address City/State/Zipcode Phone Number [facility] CLIA: [id number] [place] [address] CONSENT/REFUSAL FOR DIAGNOSIS AND TREATMENT (10/15/2019 11:38 AM CDT) Specimen Performing Organization Address City/State/Zipcode Phone Number HIM ASSIGNMENT OF BENEFITS (10/15/2019 11:38 AM CDT) Specimen Performing Organization Address City/[facility]/Zipcode Phone Number HIM from Last 3 Months Additional Health Concerns Infection Onset Date Last Indicated Resolved Time COVID-19 Rule Out 12/22/2019 12/22/2019
--- OUTSIDE RECORDS SUMMARY | 2020-02-26 12:27 | XMS REPORT | Clinical Summary ---
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 Robert Shepherd, Bi polar 1 disorder, mixed Pob, Adc Lab Main 10/15/2019 Travel 10/15/2019 Orders Only Doctor Unassigned, [place] from Last 3 Months Social History Tobacco [...] (10/15/2019 11:56 AM CDT) Pathologist Sig nature [place] 0.4 (L) 0.6 - 1.2 mmol/L [facility] LABORATORY Specimen Blood Narrative Performed At Toxic Range: Greater than 1.2 mmol/L [facility] Performing Organization Address City/State/Zipcode Phone Number [facility] CLIA: [id number] [place] [address] CONSENT/REFUSAL FOR DIAGNOSIS AND TREATMENT (10/15/2019 11:38 AM CDT) Specimen Performing Organization Address [facility] Phone Number HIM ASSIGNMENT OF BENEFITS (10/15/2019 11:38 AM CDT) Specimen Performing Organization Address [facility] Phone Number HIM from Last 3 Months
--- OUTSIDE RECORDS SUMMARY | 2020-02-26 12:27 | XMS REPORT | Clinical Summary ---
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 Last Filed Vital Signs Vital Sign Reading Time Taken Comments Blood Pressure 139/84 12/22/2019 11:58 AM FACILITIES MANAGER Pulse 69 12/22/2019 11:58 AM FACILITIES MANAGER Temperature 37 C (98.6 F) 12/22/2019 10:05 AM FACILITIES MANAGER Respiratory Rate 18 12/22/2019 11:58 AM FACILITIES MANAGER Oxygen Saturation 99% 12/22/2019 11:58 AM FACILITIES MANAGER Inhaled Oxygen Concentration - - Weight 79.4 kg (175 lb 0.6 oz) 12/22/2019 10:05 AM FACILITIES MANAGER Height 157.5 cm (5' 2") 12/22/2019 8:41 AM FACILITIES MANAGER Body Mass Index 32.01 12/22/2019 8:41 AM FACILITIES MANAGER Plan of Treatment Health Maintenance Due Date [...] Results for this DRUG ([id number]) - AM FACILITIES MANAGER procedu re are in COMPREHENSIVE DRUG the resul ts SCREEN section. POCT TEST SKYLAR 12/22/2019 11:15 Suicidal ideation Results for this AM FACILITIES MANAGER procedure are i n the results section. URINALYSIS STAT 12/22/2019 11:15 Suicidal ideation Result s for this AM FACILITIES MANAGER procedure are i n the results section. ACETAMINOPHEN STAT 12/22/2019 11:15 Suicidal ideation Resul ts for this AM FACILITIES MANAGER procedure are i n the results section. SALICYLATE STAT 12/22/2019 11:15 Suicidal ideation Result s for this AM FACILITIES MANAGER procedure are i n the results section. COMP. METABOLIC PANEL STAT 12/22/2019 11:15 Suicidal ideati on Results for this (46321) AM FACILITIES MANAGER procedure are i n the results section. CBC WITH DIFF STAT 12/22/2019 11:15 Suicidal ideation Resul ts for this AM FACILITIES MANAGER procedure are i n the results section. LITHIUM Routine 10/15/2019 11:56 Bipolar 1 disorder, Resu lts for this AM CDT mixed procedure are i n the results section. CONSENT/REFUSAL FOR Routine 10/15/2019 11:38 DIAGNOSIS AND AM CDT TREATMENT ASSIGNMENT OF BENEFITS Routine 10/15/2019 11:38 AM CDT from Last 3 Months Results POCT TEST (12/22/2019 11:15 AM FACILITIES MANAGER) Pathologist Sig nature POCT PREG negative On board controls acceptable present with C Line POCT PREG LOT # [id number] POCT PREG TEST DATE 2021-06-11 Specimen Urine - URINE, CLEAN CATCH URINALYSIS (12/22/2019 11:15 AM FACILITIES MANAGER) Pathologist Sig nature APPEARANCE Clear Clear [facility] [...] City/State/Zipcode Phone Number [facility] CLIA: [id number] [place] [address] [place] [address] CBC WITH DIFF (12/22/2019 11:15 AM FACILITIES MANAGER) Pathologist Sig nature WBC 6.88 4.30 - [...] SERVICES MONO x10^3 0.43 0.33 - 0.92 [facility] LAB[facility] 10*3/uL SERVICES EOS x10^3 0.32 0.03 - 0.39 [facility] 10*3/uL SERVICES BASO x10^3 0.06 0.01 - 0.07 [facility] 10*3/uL SERVICES Specimen Blood - VENOUS Performing Organization Address [facility] Phone Number [facility] CLIA: [id number] [place] [address] [place] [address] DRUG PANEL 2 URINE (12/22/2019 11:15 AM FACILITIES MANAGER) Pathologist Sig nature AMPHET Negative Negative [facility] EMILIANA U Negative Negative [facility] BENZO U Negative Negative [facility] Cocaine Metabolite Negative Negative [facility] SERVIC ES METHADONE Negative Negative [facility] OPIATES Negative Negative [facility] PCP Negative Negative [facility] THC Negative Negative [facility] Specimen Urine - URINE, CLEAN CATCH Narrative Performed At Urine Drug Cutoff Ranges [facility] Cocaine: 150 ng/mL Benzodiazepines: 200 ng/mL Methadone: 300 ng/mL Amphetamine: 1,000 ng/mL Opiates: 300 ng/mL Cannabinoids: 50 ng/mL Phencyclidine: 25 ng/mL Barbiturates: 200 ng/mL The results are to be used only for medical (i.e., treatment) purposes. Unconfirmed screening results mus t not be used for non-medical purposes (e.g., employment aram ting, legal testing). Performing Organization Address [facility] Phone Number [facility] CLIA: [id number] [place] [address] [place] [address] SALICYLATE (12/22/2019 11:15 AM FACILITIES MANAGER) Pathologist Sig nature SALICYLATE <10 mg/L [facility] Specimen Blood - VENOUS Narrative Performed At Therapeutic Range: [facility] Analgesic and Antipyretic Use 20-100 mg/L Anti-Inflammatory Use 1 00-250 mg/L Toxic Range: Greater than 300 mg/L Performing Organization Address City/[facility] Cent[facility]ode Phone Number [facility] CLIA: [id number] [place] [address] [place] [address] ACETAMINOPHEN (12/22/2019 11:15 AM FACILITIES MANAGER) Pathologist Sig nature ACETAMINOP <10.0 (L) 10.0 - 30.0 ug/mL [facility] S Specimen Blood - VENOUS Narrative Performed At [facility]: Greater than 200 ug/mL @ 4 hour post ingestion or [facility] greater than 50 ug/mL @ 12 hour post ingestion Performing Organization Address City/State/Zipcode Phone Number [facility] CLIA: [id number] [place] [address] [place] [address] COMP. METABOLIC PANEL (30159) (12/22/2019 11:15 AM FACILITIES MANAGER) Pathologist Sig nature NA 137 135 - 145 mmol/L [facility] K 4.3 3.5 - 5.0 mmol/L [facility] CL 103 98 - 108 mmol/L [facility] CO2 TOTAL 27 23 - 31 mmol/L [facility] AGAP 7 2 - 16 [facility] BUN 10 7 - 23 mg/dL [facility] GLUCOSE 92 70 - 110 mg/dL [facility] CREATININE 0.60 0.50 - 1.04 [facility] mg/dL SERVICES TOTAL BILI 0.4 0.1 - 1.1 mg/dL [facility] CALCIUM 9.4 8.6 - 10.6 mg/dL [facility] T PROTEIN 7.0 6.3 - 8.2 g/dL [facility] ALBUMIN 4.0 3.5 - 5.0 g/dL [facility] ALK PHOS 114 34 - 122 U/L [facility] ALTv 27 5 - 35 U/L [facility] AST(SGOT) 26 13 - 40 U/L [facility] eGFR Calculation 109.6 mL/min/1.73m2 [facility] (Non-) SERVICES eGFR Calculation 132.9 mL/min/1.73m2 [facility] () SERVICES Specimen Blood - VENOUS Narrative Performed At Association of Glomerular Filtration Rate (GFR) and St aging [facility] of Kidney Disease* [...] . Performing Organization Address City/State/Zipcode Phone Number [facility] CLIA: [id number] [place] [address] [place] [address] LITHIUM (10/15/2019 11:56 AM CDT) Pathologist Sig nature [place] 0.4 (L) 0.6 - 1.2 mmol/L [facility] Specimen Blood Narrative Performed At Toxic Range: Greater than 1.2 mmol/L [facility] Performing Organization Address City/State/Zipcode Phone Number [facility] CLIA: [id number] [place] [address] CONSENT/REFUSAL FOR DIAGNOSIS AND TREATMENT (10/15/2019 11:38 AM CDT) Specimen Performing Organization Address City/State/Zipcode Phone Number HIM ASSIGNMENT OF BENEFITS (10/15/2019 11:38 AM CDT) Specimen Performing Organization Address City/[facility]/Zipcode Phone Number HIM from Last 3 Months Additional Health Concerns Infection Onset Date Last Indicated Resolved Time COVID-19 Rule Out 12/22/2019 12/22/2019
--- OUTSIDE RECORDS SUMMARY | 2020-02-26 12:28 | XMS REPORT | Summary of Care ---
:1975 Author Organization [facility] - [facility] Address [address] [place] [id number] Care Team Providers Name Role Phone Pcp, Does Not Have A Primary Care Provider Reason for Visit Reason Comments Suicidal ideation Auth/Cert Status Reason Specialty Diagnoses / Referred By Referred To Procedures Contact Contact Emergency Medicine [facility] r[facility] Dept [address] [place] [phone] Fax: Encounter Details Date Type Department Care Team Description 12/22/2019 Emergency [facility] Patti Rose FNP [address] [place] [address] [phone] Suicidal ideation Department Olivia Nelson MD [address] [place] [address] [phone] (Primary Dx) [address] [place] [phone] Allergies Active Allergy Reactions Severity Noted Date Comments Sulfa (Sulfonamide Antibiotics) Hives 9 documented as of this encounter (statuses as of 12/22/2019) Medications Medication Sig Dispensed Refills Start Date [...] unspecified bedtime as needed type for Insomnia. documented as of this encounter (statuses as of 12/22/2019) Active Problems No known active problemsdocumented as of this encounter (statuses as of 12/22/2019) Social History Tobacco Use Types Packs/Day Years Used Date Never Smoker Smokeless Tobacco: Never Used Sex Assigned at Date Recorded Not on file COVID-19 Exposure Response Date Recorded In the last month, have you been in contact with No / Unsure 12/22/2019 10:04 AM PULMONARY FUNCTION TECHNOLOGIST someone who was confirmed or suspected to have Coronavirus / COVID-19? documented as of this encounter Last Filed Vital Signs Vital Sign Reading Time Taken Comments Blood Pressure 140/89 12/22/2019 6:52 PM PULMONARY FUNCTION TECHNOLOGIST Pulse 69 12/22/2019 6:52 PM PULMONARY FUNCTION TECHNOLOGIST Temperature 36.4 C (97.5 F) 12/22/2019 4:54 PM PULMONARY FUNCTION TECHNOLOGIST Respiratory Rate 18 12/22/2019 6:52 PM PULMONARY FUNCTION TECHNOLOGIST Oxygen Saturation 97% 12/22/2019 6:52 PM PULMONARY FUNCTION TECHNOLOGIST Inhaled Oxygen Concentration - - Weight 79.4 kg (175 lb 0.6 oz) 12/22/2019 10:05 AM PULMONARY FUNCTION TECHNOLOGIST Height - - Body Mass Index 32.01 12/22/2019 8:41 AM PULMONARY FUNCTION TECHNOLOGIST documented in this encounter Progress Notes Troy Meek MD - 12/22/2019 1:35 PM CSTCLINICAL AFFIRMATION OF MENTAL HEALTH STATUS FOR EMERGENCY APPREHENSION BY LAW ENFORCEMENT (NOTE: If multiple witnesses are making a clinical affirmation, each MUST complete a separate form.) Pursuant to [place] Health & Safety Code, Chapter 573, Section 573.001(c)(1), the undersigned archeology faculty member has made a clinical determination that the individual in question suffers from a mental health condition and poses a danger to self or others. Prior to requesting law enforcement intervention to protect the following individual and/or others from imminent bodily harm, I personally witnessed or confirmed, attest in writing and affirm to these facts with regard to the mental health status of the individual in question. Individual to be apprehended: Shivani Lagunas is a 44 year old year old woman with ongoing symptoms of bipolar depression sent to emergency department from psychiatry clinic for suicide risk concerns. Facts witnessed/confirmed: The patient is a danger to self as evidenced by: -family's ongoing concerns for the patient's imminent safety -ongoing depressive symptoms with recurrent, recently endorsed desire to -recent self-harming and suicide attempt, and did not tell anyone of behaviors Attestation made by: Dr. Troy Meek Arrangements for Transport to Mental Health Facility to be completed by Cement Worker or Night Custodian. documented in this encounter Consult Notes Troy Meek MD - 12/22/2019 12:15 PM CSTAssociated Order(s): CONSULT PSYCHIATRY DEPARTMENT OF PSYCHIATRY AND BEHAVIORAL SCIENCE Inpatient Psych/Consult Evaluation [id number] Shivani Lagunas [address] [place] [address] Court [facility] [address] 12/22/2019 REASON FOR CONSULT: "Reason for consult - please give recommendation or opinion on: Suicidal ideation " REQUESTING PHYSICIAN/ CONTACT INFORMATION: Dr. Nelson CHIEF COMPLAINT: "I don't feel my life is in danger." HISTORY OF PRESENT ILLNESS: Shivani Lagunas is a 44 year old female with a past psychiatric history of bipolar and anxiety whois sent to the ER from [facility] psychiatry clinic for concerns of suicidal thoughts and behaviors, with psychiatry consulted for evaluation here. Per chart review, the patient reported recurring suicidal thoughts at clinic today, with escalating self-harming behavior including a recent trip to the beach by herself to lie down with attempt and intent to drown herself as the tide came in. Interviewed alone, the patient confirms this suicide attempt by drowning one week ago. She recalls new cutting behavior two weeks ago to relieve anger. She denies telling family about these recent behaviors, with daughters noting cuts on arm and their attempts to discourage her from going to the beach out of her concern she would harm herself. She endorses recurrent desire to be , and denies currently. She feels burdensome to her family alongside anger and depression and endorses insomnia and several worries, both social and financial. She declines offered inpatient psychiatry multiple times and prefers to go home and follow up in clinic. She plans to let someone (mother or daughters) know if she feels unsafe. Collateral from daughters interviewed separately from patient: they have safety concerns about theirmother and note recent escalating suicidal behaviors. The patient voices suicidal desire about every other day. When asked if they feel comfortable with the patient's plan to return home and let someone know if she feels unsafe, they do not respond. Collateral from patient's mother by phone: mother endorses ongoing concerns for the patient's safetywith recurrent, recent voiced suicidal desire. She feels the patient she go to inpatient psychiatryfor her own safety. PAST PSYCHIATRIC HISTORY: Diagnoses of bipolar and anxiety. Seen at [facility] outpatient, last seen this morning and sent to ER. SUBSTANCE USE: Patient endorses drinking one drink daily, denies use for past month. Smokes nicotine via Juul. PAST MEDICAL HISTORY: History reviewed. No pertinent past medical history. History reviewed. No pertinent surgical history. MEDICATIONS: No current facility-administered medications for this encounter. Current Outpatient Medications Medication Sig Dispense Refill zolpidem 10 mg tablet Take 0.5 tablets by mouth at bedtime as needed for Insomnia. 15 tablet 0 clonazePAM 1 mg tablet Take 1/2 tablet up to twice during the daytime as needed for anxiety. Take up to 2 tablets as needed at bedtime for insomnia. 90 tablet 0 DULoxetine 30 mg capsule Take 1 capsule by mouth daily. Take with the 60mg dose for total of 90mg 30 capsule 1 DULoxetine 60 mg CDRS Take 60 mg by mouth daily. Take with 30 mg capsule for total dose of 90 mgdaily. 30 capsule 1 lithium carbonate 300 mg tablet Take 2 tablets by mouth at bedtime. 60 tablet 1 allopurinoL 100 mg tablet Take 100 mg by mouth daily. atorvastatin 10 mg tablet Take 10 mg by mouth at bedtime. propranolol 80 mg tablet Take 80 mg by mouth 2 (two) times daily. FUROSEMIDE ORAL Take 40 mg by mouth daily. losartan potassium (LOSARTAN ORAL) Take by mouth. SIDE EFFECTS/ALLERGIES: Allergies Allergen Reactions Sulfa (Sulfonamide Antibiotics) Hives SOCIAL HISTORY: Lives with daughters, with mother nearby, and these family are her primary social support. Seeking disability. FAMILY MEDICAL HISTORY: No family history on file. VITAL SIGNS: BP 139/84 | Pulse 69 | Temp 37 C (98.6 F) (Oral) | Resp 18 | Wt 79.4 kg (175 lb 0.6 oz) | SpO2 99% | BMI 32.01 kg/m LAB DATA CBC BMP PT/INR WBC (10*3/L) Date Value 12/22/2019 6.88 NA (mmol/L) Date Value 12/22/2019 137 No results found for: PT RBC (10*6/L) Date Value 12/22/2019 4.31 K (mmol/L) Date Value 12/22/2019 4.3 No results found for: PTINR PLT (10*3/L) Date Value 12/22/2019 276 CALCIUM (mg/dL) Date Value 12/22/2019 9.4 HGB (g/dL) Date Value 12/22/2019 11.7 CL (mmol/L) Date Value 12/22/2019 103 aPTT HCT (%) Date Value 12/22/2019 35.9 BUN (mg/dL) Date Value 12/22/2019 10 No results found for: APTTPAT CREATININE (mg/dL) Date Value 12/22/2019 0.60 MENTAL STATUS EXAM: COMMENTS: cooperative with exam APPEARANCE: wearing [facility] PJs, healed cuts on left forearm and left neck/shoulder ATTITUDE: Cooperative and somber PSYCHOMOTOR: Hypoactive MOOD: Depressed AFFECT: Blunted and Congruent Mood SPEECH: Increased latency and Slowed LANGUAGE: Normal THOUGHT PROCESS: Logical Directed and Coherent ASSOCIATIONS: Normal ABNORMAL/PSYCHOTIC THOUGHTS: THOUGHT CONTENT: Without Delusions PERCEPTUAL: Without Hallucinations SUICIDAL: denies current suicidal thoughts, endorses chronic recurrent suicidal desire VIOLENT/HOMICIDAL: Not Present COGNITION: Grossly Intact LEVEL OF CONSCIOUSNESS: Lethargy ORIENTATION: grossly oriented RECENT AND REMOTE MEMORY: Intact INTELLIGENCE: Average based on vocabulary ATTENTION AND CONCENTRATION: Good JUDGEMENT: Moderately Impaired, came to ER, limited contingency plans in place INSIGHT: limited: able to relate recent symptoms and events, with limited relation of severity of behaviors ASSESSMENT/FORMULATION: Shivani Lagunas is a 44 year old woman with a history of bipolar endorsing recent depressive symptoms with self-harming and suicide attempt and family's active concerns for her safety. The least restrictive setting for continued safe care at this time is inpatient psychiatry. SUICIDE RISK ASSESSMENT: Risks: Attempt one week ago, self-harming, recurrent suicidal desire, demonstrated poor impulse control in recent self-harming and suicide attempt, did not tell family of previous behaviors, ongoing depressive symptoms, limited contingency plan in place with family's concerns of her imminent safety, substance use Protective: No guns at home, family involvement Overall: The patient is an imminent suicide risk concern. DIAGNOSES/PLAN: 1) bipolar depression - C/W 1:1 sitter and suicide precautions - Recommend involuntary inpatient psychiatric hospitalization once medically stable (please refer vanessa clinical affirmation note) - If patient refuses & wants to leave / admit involuntarily / fill out EAD / inform authorities - will not start psych meds at this time (can re-evaluate at a later time if patient awaiting placement for prolonged period) - continue outpatient meds pending transfer/admission, defer to inpatient psych to modify as indicated - No more psychiatric intervention is needed at this moment, Please contact the psychiatry consult pager with any questions. I am the attending, and I personally examined this patient. Troy Meek MD documented in this encounter ED Notes Marcos Kiran, RN - 12/22/2019 5:36 PM CSTCare Management Note 12/22/2019 5:37 PM [facility] Screener PH: [phone] F) [phone] Della, is recommending outpatient treatment.Assessment note placed in chart. ED physician notified of recommendation. Marcos Kiran MSN, ANNE-MARIE, RN Inspector Wreath [facility] Care Management [email or web address] P) [phone] F) [phone] ONARY FUNCTION TECHNOLOGIST Marcos Kiran RN - 12/22/2019 3:35 PM CSTCare Management Note 12/22/2019 3:35 PM CC assisted [facility] Screener PH: [phone] F) [phone] by providing clinicals and report over patient. Marcos CORTES MBA, RN Inspector Wreath [facility] Care Management [email or web address] P) [phone] F) [phone] ONARY FUNCTION TECHNOLOGIST Shanell Murrell RN - 12/22/2019 10:05 AM CSTMarirving Lagunas is a 44 year old female ambulatory to triage. Patient c/o suicidal thoughts. Denies HI. Patient alert calm/cooperative documented in this encounter Miscellaneous Notes ED Nurse Note - Zainab José RN - 12/22/2019 7:46 PM CSTThis nurse explain to Pt the AMA process. Pt signed paperwork, and verbalized that she understood that the hospital is not held liable. No belongings were collected at the time of arrival. Pt left with two daughters and [facility] PD. D Nurse Note - Zainab José RN - 12/22/2019 7:41 PM CSTPt informed us she is walking out AMA with PD. Pt signed AMA form and left with PD. D Mental Health Note - Olivia Nelson MD - 12/22/2019 7:39 PM CSTCLINICAL AFFIRMATION OF MENTAL HEALTH STATUS FOR EMERGENCY APPREHENSION BY LAW ENFORCEMENT (NOTE: If multiple witnesses are making a clinical affirmation, each MUST complete a separate form.) Pursuant to [place] Health [place] Safety Code, Chapter 573, Section 573.001(c)(1), the undersigned archeology faculty member has made a clinical determination that the individual in question suffers from a mental health condition and poses a danger to self or others. Prior to requesting law enforcement intervention to protect the following individual and/or others from imminent bodily harm, I personally witnessed or confirmed, attest in writing and affirm to these facts with regard to the mental health status of the individual in question. Individual to be apprehended: Shivani Lagunas is a 44 year old female Facts witnessed/confirmed: The patient is a danger to self/others. Patient suicidal with self-harming behavior including a recent trip to the beach in which she lied down with an attempt to drown herself as the tide came in. Patient reports intermittent thoughts of wanting to commit suicide and evaluated by 2 psychiatrists who recommended inpatient psychiatry. Attestation made by: Olivia Nelson MD 12/22/2019 7:39 PM (Electronic Signature) Arrangements for Transport to Mental Health Facility to be completed by Cement Worker or Night Custodian. ONARY FUNCTION TECHNOLOGIST ED Nurse Note - Zainab José RN - 12/22/2019 7:38 PM CSTPD at bedside with patient. D Nurse Note - Zainab José RN - 12/22/2019 7:23 PM CSTPt is stating " I want to leave, I am ready to go". notified that patient wanted to leave. confirmed that patient has an ARMIDA placed in charge. PD notified. D Nurse Note - Zainab José RN - 12/22/2019 7:13 PM CSTReport received from AMANDA Lawrence. Primary/secondary survey, orders, treatments reviewed. Pt sittingon edge of bed in room with both of her daughters. NAD noted at this time. Zainab José RN D Nurse Note - Melinda Waldron RN - 12/22/2019 7:06 PM CSTReport to AMANDA Lamb who verbalized understanding of all information D Mental Health Note - Olivia Nelson MD - 12/22/2019 6:25 PM CSTCLINICAL AFFIRMATION OF MENTAL HEALTH STATUS FOR EMERGENCY APPREHENSION BY LAW ENFORCEMENT (NOTE: If multiple witnesses are making a clinical affirmation, each MUST complete a separate form.) Pursuant to [place] Health [place] Code, Chapter 573, Section 573.001(c)(1), the undersigned archeology faculty member has made a clinical determination that the individual in question suffers from a mental health condition and poses a danger to self or others. Prior to requesting law enforcement intervention to protect the following individual and/or others from imminent bodily harm, I personally witnessed or confirmed, attest in writing and affirm to these facts with regard to the mental health status of the individual in question. Individual to be apprehended: Shivani Lagunas is a 44 year old female Facts witnessed/confirmed: The patient is a danger to self/others. Patient suicidal. Patient evaluated by two psychiatrists who recommended inpatient treatment secondary to suicidal ideation. Attestation made by: Olivia Nelson MD 12/22/2019 6:25 PM (Electronic Signature) Arrangements for Transport to Mental Health Facility to be completed by Cement Worker or Night Custodian. ONARY FUNCTION TECHNOLOGIST ED Nurse Note - Melinda Waldron RN - 12/22/2019 6:20 PM CSTMD at bedside to discuss plan of care D Nurse Note - Melinda Waldron RN - 12/22/2019 6:00 PM CSTPatient remains under suicide precautions. Continuous observation in place, patient currently sitting in stretcher in NAD calm and quiet pending disposition. D Nurse Note - Jone Salas - 12/22/2019 4:34 PM CSTGCMR leaves room at this time. D Nurse Note - Melinda Waldron RN - 12/22/2019 4:00 PM CSTPatient remains under suicide precautions. Continuous observation in place, patient currently speaking with [facility]. Sitter at bedside for one to one monitoring D Nurse Note - Jone Salas - 12/22/2019 3:35 PM CSTGCMR enters room to speak with patient at this time. D Nurse Note - Melinda Waldron RN - 12/22/2019 2:15 PM CSTPatient remains under suicide precautions. Continuous observation in place, patient currently sitting upright in stretcher sitting quietly with daughters at bedside. D Nurse Note - Melinda Waldron RN - 12/22/2019 1:47 PM CSTPatient and daughters now stating they want to go home and follow up from home. MD informed. D Nurse Note - Jone Salas - 12/22/2019 1:15 PM CSTPsychiatry leaves room at this time. D Nurse Note - Jone Salsa - 12/22/2019 1:08 PM CSTPsychiatry MD re-enters the room at this time, after speaking with family member on phone. D Nurse Note - Jone Salas - 12/22/2019 12:38 PM PULMONARY FUNCTION TECHNOLOGIST Psychiatry MD leaves room at this time. D Nurse Note - Melinda Waldron RN - 12/22/2019 12:15 PM CSTPatient remains under suicide precautions. Continuous observation in place, patient currently with psychiatry at bedside. D Nurse Note - Jone Salas - 12/22/2019 12:13 PM CSTPsychiatry MD enters room at this time. uicide Risk Assessment Note - Olivia Nelson MD - 12/22/2019 10:29 AM PULMONARY FUNCTION TECHNOLOGIST Suicide Risk - Assessment and Plan [place]: 1) Wish to be : (P) No 2) Current suicidal thoughts: (P) Yes 3) Suicidal thoughts with method (with no specific plan or intent to act): (P) No 4) Suicidal intent without specific plan: (P) Yes 5) Intent with plan: (P) No 6) Suicidal behavior: (P) Yes 6b) Was it in the past 3 months?: (P) No [place] Score: )Suggested risk level: (P) High SAFE-T: Current and past psychiatric diagnoses: (P) Mood Disorder Presenting symptoms: (P) Anhedonia Family history: Suicide Clinical Status: (P) Hopelessness Precipitants / stressors: Triggering events leading to humiliation, shame, and/or despair Protective factors: Ability to cope with stress Access to Lethal Means: Does patient have access to a gun or access to guns?: No Protective Factors: Internal: Fear of or dying due to pain and suffering Specific Questions of Thoughts, Plans, Intent: Frequency- how many times have you had these thought?: (P) Daily or almost dailly 4.Deterrents - are there things, anyone or anything (family, moravian, pain of ) that have stopped you from wanting to or acting on thoughts of committing suicide?: Deterrents definitely stopped from attempting Reasons for ideation - What are the reasons you have for wanting to or kill yourself? Was it to end pain, stop the way you are feeling, or to get attention, or get revenge and reaction from others?: Completely to get attention or reaction Behavior Assessment: 1.Were there preparatory acts like buying pills, guns, giving things away, or writing suicide note?:(P) No 2.Was an attempt aborted or self - interrupted?: (P) No 3.Was an attempt interrupted by someone else?: (P) No 4.Was there an actual attempt?: (P) No 5.Is there non suicidal self injury? Cutting, biting, skin picking: (P) No Stratification: High Suicide Risk Moderate Suicide Risk Low Suicide Risk ?? Suicidal ideation with intent or intent with plan in past month (C-SSRS Suicidal Ideation #4 or #5) Or ?? Suicidal behavior within past 3 months (C-SSRS Suicidal Behavior) ?? Suicidal ideation with method, WITHOUT plan, intent or behavior in past month (C-SSRS Suicidal Ideation #3) Or ?? Suicidal behavior more than 3 months ago (C-SSRS Suicidal Behavior Lifetime) Or ?? Multiple risk factors and few protective factors ?? Wish to or Suicidal Ideation WITHOUT method, intent, plan or behavior (C-SSRS Suicidal Ideation #1 or #2) Or ?? Modifiable risk factors and strong protective factors Or ? No reported history of Suicidal Ideation or Behavior Location / Risk: Outpatient / Moderate: Suicidal ideation with intent and a plan in the past month but has protective factors, OR Suicidal behavior more than 3 months ago OR suicidal ideation with intent, no plan but has multiple risk factors and few protective factors. a. Directly address suicide risk with patient and family. b. Develop safety plan (includes prevention strategies) and include counseling about restriction andremoval of firearms, medications, means to hang oneself, large sharp objects, etc. See safety plan. c. Consider referral to Emergency Room as necessary if unable to develop a safety plan. d. Referral to outpatient behavioral health resource within 1 month. e. Follow-up with Pediatric provider in 1 week or less. ONARY FUNCTION TECHNOLOGIST ED Nurse Note - Melinda Waldron RN - 12/22/2019 10:28 AM CSTPatient provided with paper scrubs to change into. Patients daughters present and will take belongings home after collection. D Nurse Note - Melinda Waldron RN - 12/22/2019 10:20 AM CSTMD at bedside D Nurse Note - Melinda Waldron RN - 12/22/2019 10:15 AM CST Patient and family members educated on emergency department behavioral process and precautions. Educated on need for direct observation, removal of belongings, and clearing of room for patient and staff safety. Patient and family given [facility] resources for outpatient treatment and care. Room and patient modified for patient safety. Sitter at bedside for continuous one to one monitoring D Nurse Note - Melinda Waldron RN - 12/22/2019 10:10 AM PULMONARY FUNCTION TECHNOLOGIST Shivani Lagunas is a 44 year old female presenting to the ed ambulatory voluntarily c/o SI. Ryan saw her psychiatrist today and c/o SI and he directed her to come to ED. Patient denies attempt or plan to hurt herself. Patient reports hx of depression and bipolar disorder. Patient informed of ED protocol and agrees to plan of care. MD aware of patient arrival documented in this encounter Plan of Treatment Name Type Priority Associated Diagnoses Date/Ti me LAB ONLY COVID LAB STAT Suicidal ideation 12/22/19 20 12:45 PM INTERPRETATION PULMONARY FUNCTION TECHNOLOGIST Name Type Priority Associated Diagnoses Order S chedule LAB ONLY COVID LAB Routine Suicidal ideation ONCE for 1 Occurrences INTERPRETATION starting 10/2019 until 0, 1 completed Health Maintenance Due Date Last Done Comments DTaP,Tdap,and Td Vaccines (1 1996 - Tdap) PAP SMEAR 1998 Breast Cancer Screening 2017 (MAMMOGRAM) INFLUENZA VACCINE (#1) 2019 Depression Screening 12/21/2020 12/22/2019, 12/22/2019 PNEUMOCOCCAL 0-64 YEARS Aged Out No longe r eligible based COMBINED SERIES on patient's age to complete this to pic documented as of this encounter Procedures Procedure Name Priority Date/Time Associated Comments Diagnosis COVID-19 (ID NOW STAT 12/22/2019 12:45 Suicidal ideation Re sults for this RAPID TESTING) PM PULMONARY FUNCTION TECHNOLOGIST procedure are in the results section. POCT TEST SKYLAR 12/22/2019 11:15 Suicidal ideation Results for this AM PULMONARY FUNCTION TECHNOLOGIST procedure are i n the results section. URINALYSIS STAT 12/22/2019 11:15 Suicidal ideation Result s for this AM PULMONARY FUNCTION TECHNOLOGIST procedure are i n the results section. CBC WITH DIFF STAT 12/22/2019 11:15 Suicidal ideation Resul ts for this AM PULMONARY FUNCTION TECHNOLOGIST procedure are i n the results section. GALV/CLC ONLY - URINE STAT 12/22/2019 11:15 Suicidal ideati on Results for this DRUG (IMMUNOASSAY) - AM PULMONARY FUNCTION TECHNOLOGIST procedu re are in COMPREHENSIVE DRUG the resul ts SCREEN section. ETHANOL STAT Add-On 12/22/2019 11:15 Suicidal ideation Result s for this AM PULMONARY FUNCTION TECHNOLOGIST procedure are i n the results section. SALICYLATE STAT 12/22/2019 11:15 Suicidal ideation Result s for this AM PULMONARY FUNCTION TECHNOLOGIST procedure are i n the results section. ACETAMINOPHEN STAT 12/22/2019 11:15 Suicidal ideation Resul ts for this AM PULMONARY FUNCTION TECHNOLOGIST procedure are i n the results section. COMP. METABOLIC PANEL STAT 12/22/2019 11:15 Suicidal ideati on Results for this (50414) AM PULMONARY FUNCTION TECHNOLOGIST procedure are i n the results section. documented in this encounter Results COVID-19 (ID NOW RAPID TESTING) (12/22/2019 12:45 PM PULMONARY FUNCTION TECHNOLOGIST) SARS-CoV-2 Rapid ID Not Detected Not Detected [facility] Specimen Swab - NASOPHARYNGEAL SWAB Narrative Performed At ID NOW COVID-19 Assay is an isothermal nucleic acid [facility] amplification test intended for the qualitative detect ion of nucleic acid from SARS-CoV-2 viral RNA in nasopharynge al (PICTURE FRAME MAKER) specimens. It is used under Emergency Use Authori zation (EUA) by FDA. The limit of detection (LOD) of the assa y is 125 Genome Equivalents/mL. A positive result is indicative of the presence of SARS-CoV-2 RNA. Clinical correlation with patient hi story and other diagnostic information is necessary to deter mine patient infection status. A negative (Not Detected) result does not preclude SARS-CoV-2 infection. In patients with clinical sympto ms and other tests that are consistent with SARS-CoV-2 infect ion, negative results should be treated as presumptive nega tive and a new specimen should be tested with alternative P CR molecular test. Invalid: Please collect a new specimen for repeat saurav ent testing if clinically indicated. Performing Organization Address City/State/Zipcode Phone Number [facility] CLIA: [id number] [place] [address] [place] [address] ETHANOL (12/22/2019 11:15 AM PULMONARY FUNCTION TECHNOLOGIST) Pathologist Sig nature ALCOHOL <10 mg/dL [facility] Specimen Blood - VENOUS Narrative Performed At Toxic Greater than or equal to 80 mg/dL. [facility] NOTE: Whole blood values are approximately 10% to 15% lower than serum and plasma. Performing Organization Address [facility]/[place] Phone Number [facility] CLIA: [id number] [place] [address] [place] [address] DRUG PANEL 2 URINE (12/22/2019 11:15 AM PULMONARY FUNCTION TECHNOLOGIST) Pathologist Sig nature AMPHET Negative Negative [facility] EMILIANA U Negative Negative [facility] BENZO U Negative Negative [facility] Cocaine Metabolite Negative Negative [facility] ES METHADONE Negative Negative [facility] OPIATES Negative Negative [facility] PCP Negative Negative [facility] THC Negative Negative [facility] Specimen Urine - URINE, CLEAN CATCH Narrative Performed At Urine Drug Cutoff Ranges [facility] Cocaine: 150 ng/mL Benzodiazepines: 200 ng/mL Methadone: 300 ng/mL Amphetamine: 1,000 ng/mL Opiates: 300 ng/mL Cannabinoids: 50 ng/mL Phencyclidine: 25 ng/mL Barbiturates: 200 ng/mL The results are to be used only for medical (i.e., treatment) purposes. Unconfirmed screening results mus t not be used for non-medical purposes (e.g., employment aram ting, legal testing). Performing Organization Address City/[facility]/Zipcode Phone Number [facility] CLIA: [id number] [place] [address] [place] [address] POCT TEST (12/22/2019 11:15 AM PULMONARY FUNCTION TECHNOLOGIST) Pathologist Sig nature POCT PREG negative On board controls acceptable present with C Line POCT PREG LOT # [id number] POCT PREG TEST DATE 2021-06-11 Specimen Urine - URINE, CLEAN CATCH URINALYSIS (12/22/2019 11:15 AM PULMONARY FUNCTION TECHNOLOGIST) Pathologist Sig nature APPEARANCE Clear Clear [facility] COLOR Yellow Yellow [facility] PH 6.0 4.8 - 8.0 [facility] SP GRAVITY 1.011 1.003 - 1.030 [facility] GLU U QUAL Normal Normal [facility] BLOOD 1+ (A) Negative [facility] KETONES Negative Negative [facility] PROTEIN Negative Negative [facility] UROBILIN Normal Normal [facility] BILIRUBIN Negative Negative [facility] NITRITE Negative Negative [facility] LEUK VISHAL Negative Negative [facility] RBC/HPF 3 0 - 3 HPF [facility] WBC/HPF 1 0 - 5 HPF [facility] BACTERIA Few (A) Negative [facility] SQ EPITH <1 <=2 HPF [facility] Specimen Urine - URINE, CLEAN CATCH Performing Organization Address [facility] Phone Number [facility] CLIA: [id number] [place] [address] [place] [address] ACETAMINOPHEN (12/22/2019 11:15 AM PULMONARY FUNCTION TECHNOLOGIST) Pathologist Sig nature ACETAMINOP <10.0 (L) 10.0 - 30.0 ug/mL [facility] S Specimen Blood - VENOUS Narrative Performed At Toxic: Greater than 200 ug/mL @ 4 hour post ingestion or [facility] greater than 50 ug/mL @ 12 hour post ingestion Performing Organization Address [facility] Phone Number [facility] CLIA: [id number] [place] [address] [place] [address] SALICYLATE (12/22/2019 11:15 AM PULMONARY FUNCTION TECHNOLOGIST) Pathologist Sig nature SALICYLATE <10 mg/L [facility] Specimen Blood - VENOUS Narrative Performed At Therapeutic Range: [facility] Analgesic and Antipyretic Use 20-100 mg/L Anti-Inflammatory Use 1 00-250 mg/L Toxic Range: Greater than 300 mg/L Performing Organization Address City/[facility] Phone Number [facility] CLIA: [id number] [place], [place] [address] [address] [facility] COMP. METABOLIC PANEL (09610) (12/22/2019 11:15 AM PULMONARY FUNCTION TECHNOLOGIST) Pathologist Sig nature NA 137 135 - 145 mmol/L [facility] K 4.3 3.5 - 5.0 mmol/L [facility] CL 103 98 - 108 mmol/L [facility] CO2 TOTAL 27 23 - 31 mmol/L [facility] AGAP 7 2 - 16 [facility] BUN 10 7 - 23 mg/dL [facility] GLUCOSE 92 70 - 110 mg/dL [facility] CREATININE 0.60 0.50 - 1.04 [facility] mg/dL SERVICES TOTAL BILI 0.4 0.1 - 1.1 mg/dL [facility] CALCIUM 9.4 8.6 - 10.6 mg/dL [facility] T PROTEIN 7.0 6.3 - 8.2 g/dL [facility] ALBUMIN 4.0 3.5 - 5.0 g/dL [facility] ALK PHOS 114 34 - 122 U/L [facility] ALTv 27 5 - 35 U/L [facility] AST(SGOT) 26 13 - 40 U/L [facility] eGFR Calculation 109.6 mL/min/1.73m2 [facility] (Non-) SERVICES eGFR Calculation 132.9 mL/min/1.73m2 [facility] () SERVICES Specimen Blood - VENOUS Narrative Performed At Association of Glomerular Filtration Rate (GFR) and St aging [facility] of Kidney Disease* + [...] . Performing Organization Address City/State/Zipcode Phone Number [facility] CLIA: [id number] [place] [address] [place] [address] CBC WITH DIFF (12/22/2019 11:15 AM PULMONARY FUNCTION TECHNOLOGIST) Pathologist Sig nature WBC 6.88 4.30 - [...] SERVICES MONO x10^3 0.43 0.33 - 0.92 [facility] 10*3/uL SERVICES EOS x10^3 0.32 0.03 - 0.39 [facility] 10*3/uL SERVICES BASO x10^3 0.06 0.01 - 0.07 [facility] 10*3/uL SERVICES Specimen Blood - VENOUS Performing Organization Address City/State/Zipcode Phone Number [facility] CLIA: [id number] [place] [address] [place], [place] [address]vd documented in this encounter Visit Diagnoses Diagnosis Suicidal ideation - Primary documented in this encounter Additional Health Concerns Infection Onset Date Last Indicated Resolved Time COVID-19 Rule Out 12/22/2019 12/22/2019 12/22/2019 1: 55 PM PULMONARY FUNCTION TECHNOLOGIST documented as of this encounter
--- OUTSIDE RECORDS SUMMARY | 2020-02-26 12:29 | XMS REPORT | Clinical Summary ---
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 Last Filed Vital Signs Vital Sign Reading Time Taken Comments Blood Pressure 140/89 12/22/2019 6:52 PM MUSHROOM PACKER Pulse 69 12/22/2019 6:52 PM MUSHROOM PACKER Temperature 36.4 C (97.5 F) 12/22/2019 4:54 PM MUSHROOM PACKER Respiratory Rate 18 12/22/2019 6:52 PM MUSHROOM PACKER Oxygen Saturation 97% 12/22/2019 6:52 PM MUSHROOM PACKER Inhaled Oxygen Concentration - - Weight 79.4 kg (175 lb 0.6 oz) 12/22/2019 10:05 AM MUSHROOM PACKER Height 157.5 cm (5' 2") 12/22/2019 8:41 AM MUSHROOM PACKER Body Mass Index 32.01 12/22/2019 8:41 AM MUSHROOM PACKER Plan of Treatment Health Maintenance Due Date [...] Re sults for this RAPID TESTING) PM MUSHROOM PACKER procedure are in the results section. ETHANOL STAT Add-On 12/22/2019 11:15 Suicidal ideation Result s for this AM MUSHROOM PACKER procedure are i n the results section. GALV/CLC ONLY - URINE STAT 12/22/2019 11:15 Suicidal ideati on Results for this DRUG ([id number]) - AM MUSHROOM PACKER procedu re are in COMPREHENSIVE DRUG the resul ts SCREEN section. POCT TEST SKYLAR 12/22/2019 11:15 Suicidal ideation Results for this AM MUSHROOM PACKER procedure are i n the results section. URINALYSIS STAT 12/22/2019 11:15 Suicidal ideation Result s for this AM MUSHROOM PACKER procedure are i n the results section. ACETAMINOPHEN STAT 12/22/2019 11:15 Suicidal ideation Resul ts for this AM MUSHROOM PACKER procedure are i n the results section. SALICYLATE STAT 12/22/2019 11:15 Suicidal ideation Result s for this AM MUSHROOM PACKER procedure are i n the results section. COMP. METABOLIC PANEL STAT 12/22/2019 11:15 Suicidal ideati on Results for this ([id number]) AM MUSHROOM PACKER procedure are i n the results section. CBC WITH DIFF STAT 12/22/2019 11:15 Suicidal ideation Resul ts for this AM MUSHROOM PACKER procedure are i n the results section. LITHIUM Routine 10/15/2019 11:56 Bipolar 1 Results for this AM CDT disorder, mixed procedure ar e in the results section. CONSENT/REFUSAL FOR Routine 10/15/2019 11:38 DIAGNOSIS AND AM CDT TREATMENT ASSIGNMENT OF Routine 10/15/2019 11:38 BENEFITS AM CDT from Last 3 Months Results COVID-19 (ID NOW RAPID TESTING) (12/22/2019 12:45 PM MUSHROOM PACKER) SARS-CoV-2 Rapid ID Not Detected Not Detected [facility] Specimen Swab - NASOPHARYNGEAL SWAB Narrative Performed At ID NOW COVID-19 Assay is an isothermal nucleic acid [facility] amplification test intended for the qualitative detect ion of nucleic acid from SARS-CoV-2 viral RNA in nasopharynge al (TITLE COORDINATOR) specimens. It is used under Emergency Use [...] testing if clinically indicated. Performing Organization Address [facility]/Zipcode Phone Number [facility] CLIA: [id number] [place] [address] [place] [address] POCT TEST (12/22/2019 11:15 AM MUSHROOM PACKER) Pathologist Sig nature POCT PREG negative On board controls acceptable present with C Line POCT PREG LOT # [id number] POCT PREG TEST DATE 2021-06-11 Specimen Urine - URINE, CLEAN CATCH URINALYSIS (12/22/2019 11:15 AM MUSHROOM PACKER) Pathologist Sig [facility] APPEARANCE Clear Clear [facility] COLOR Yellow Yellow [facility] PH 6.0 4.8 - 8.0 [facility] SP GRAVITY 1.011 1.003 - 1.030 [facility] GLU U QUAL Normal Normal [facility] BLOOD 1+ (A) Negative [facility] KETONES Negative Negative [facility] PROTEIN Negative Negative [facility] UROBILIN Normal Normal [facility] BILIRUBIN Negative Negative [facility] NITRITE Negative Negative [facility] LEUK VISHAL Negative Negative [facility] RBC/HPF 3 0 - 3 HPF [facility] WBC/HPF 1 0 - 5 HPF [facility] BACTERIA Few (A) Negative [facility] SQ EPITH <1 <=2 HPF [facility] Specimen Urine - URINE, CLEAN CATCH Performing Organization Address City/[facility]/Zipcode Phone Number [facility] CLIA: [id number] [place] [address] [phone] [address] [facility] CBC WITH DIFF (12/22/2019 11:15 AM MUSHROOM PACKER) Pathologist Sig nature WBC 6.88 4.30 - 11.10 [facility] 10*3/L SERVICES RBC 4.31 3.93 - 5.25 [facility] 10*6/L SERVICES HGB 11.7 11.6 - 15.0 g/dL [facility] HCT 35.9 35.7 - 45.2 % [facility] MCV 83.3 80.6 - 95.5 fL [facility] MCH 27.1 25.9 - 32.8 pg [facility] MCHC 32.6 31.6 - 35.1 g/dL [facility] RDW-SD 43.3 39.0 - 49.9 fL [facility] RDW-CV 14.4 12.0 - 15.5 % [facility] PLT 276 166 - 358 [facility] 10*3/L SERVICES MPV 12.1 9.5 - 12.9 fL [facility] NRBC/100 WBC 0.0 0.0 - [...] SERVICES BASO x10^3 0.06 0.01 - 0.07 [facility] 10*3/uL SERVICES Specimen Blood - VENOUS Performing Organization Address City/State/Zipcode Phone Number [facility] CLIA: [id number] [place], [place] [address] [address] [place] [address] DRUG PANEL 2 URINE (12/22/2019 11:15 AM MUSHROOM PACKER) Pathologist Sig nature AMPHET Negative Negative [facility] EMILIANA U Negative Negative [facility] BENZO U Negative Negative [facility] Cocaine Metabolite Negative Negative [facility] ES METHADONE Negative Negative [facility] OPIATES Negative Negative [facility] PCP Negative Negative [facility] THC Negative Negative [facility] Specimen Urine - URINE, CLEAN CATCH Narrative Performed At Urine Drug Cutoff Ranges [facility] Cocaine: 150 ng/mL Benzodiazepines: 200 ng/mL Methadone: 300 ng/mL Amphetamine: 1,000 ng/mL Opiates: 300 ng/mL Cannabinoids: 50 ng/mL Phencyclidine: 25 ng/mL Barbiturates: 200 ng/mL The results are to be used only for medical (i.e., treatment) purposes. Unconfirmed screening results mus t not be used for non-medical purposes (e.g., employment aram ting, legal testing). Performing Organization Address City/State/Zipcode Phone Number [facility] CLIA: [id number] [place] [address] [phone] [address] [facility] ETHANOL (12/22/2019 11:15 AM MUSHROOM PACKER) Pathologist Sig nature ALCOHOL <10 mg/dL [facility] Specimen Blood - VENOUS Narrative Performed At Toxic Greater than or equal to 80 mg/dL. [facility] NOTE: Whole blood values are approximately 10% to 15% lower than serum and plasma. Performing Organization Address City/[facility] Cent[facility] Phone Number [facility] CLIA: [id number] [place] [address] [place] [address] SALICYLATE (12/22/2019 11:15 AM MUSHROOM PACKER) Pathologist Sig nature SALICYLATE <10 mg/L [facility] Specimen Blood - VENOUS Narrative Performed At Therapeutic Range: [facility] Analgesic and Antipyretic Use 20-100 mg/L Anti-Inflammatory Use 1 00-250 mg/L Toxic Range: Greater than 300 mg/L Performing Organization Address [facility] Centercode Phone Number [facility] CLIA: [id number] [place] [address] [place] [address] ACETAMINOPHEN (12/22/2019 11:15 AM MUSHROOM PACKER) Pathologist Sig nature ACETAMINOP <10.0 (L) 10.0 - 30.0 ug/mL [facility] S Specimen Blood - VENOUS Narrative Performed At Toxic: Greater than 200 ug/mL @ 4 hour post ingestion or [facility] greater than 50 ug/mL @ 12 hour post ingestion Performing Organization Address City/State/Zipcode Phone Number [facility] CLIA: [id number] [place] [address] [place] [address] COMP. METABOLIC PANEL ([id number]) (12/22/2019 11:15 AM MUSHROOM PACKER) Pathologist Sig nature NA 137 135 - 145 mmol/L [facility] K 4.3 3.5 - 5.0 mmol/L [facility] CL 103 98 - 108 mmol/L [facility] CO2 TOTAL 27 23 - 31 mmol/L [facility] AGAP 7 2 - 16 [facility] BUN 10 7 - 23 mg/dL [facility] GLUCOSE 92 70 - 110 mg/dL [facility] CREATININE 0.60 0.50 - 1.04 [facility] mg/dL SERVICES TOTAL BILI 0.4 0.1 - 1.1 mg/dL [facility] CALCIUM 9.4 8.6 - 10.6 mg/dL [facility] T PROTEIN 7.0 6.3 - 8.2 g/dL [facility] ALBUMIN 4.0 3.5 - 5.0 g/dL [facility] ALK PHOS 114 34 - 122 U/L [facility] ALTv 27 5 - 35 U/L [facility] AST(SGOT) 26 13 - 40 U/L [facility] eGFR Calculation 109.6 mL/min/1.73m2 [facility] (Non-) SERVICES eGFR Calculation 132.9 mL/min/1.73m2 [facility] () SERVICES Specimen Blood - VENOUS Narrative Performed At Association of Glomerular Filtration Rate (GFR) and St aging [facility] of Kidney Disease* + + [...] . Performing Organization Address City/State/Zipcode Phone Number [facility] CLIA: [id number] [place] [address] [place], [place] [address] LITHIUM (10/15/2019 11:56 AM CDT) Pathologist Sig nature [place] 0.4 (L) 0.6 - 1.2 mmol/L [facility] Specimen Blood Narrative Performed At Toxic Range: Greater than 1.2 mmol/L [facility] Performing Organization Address City/State/Zipcode Phone Number [facility] CLIA: [id number] [place] [address] CONSENT/REFUSAL FOR DIAGNOSIS AND TREATMENT (10/15/2019 11:38 AM CDT) Specimen Performing Organization Address City/[facility]/Zipcode Phone Number HIM ASSIGNMENT OF BENEFITS (10/15/2019 11:38 AM CDT) Specimen Performing Organization Address [facility] Cent[facility] Phone Number HIM from Last 3 Months
--- OUTSIDE RECORDS SUMMARY | 2020-02-26 12:29 | XMS REPORT | Clinical Summary ---
:1975 Author Organization [facility] Address [address] [place] [id number] Care Team Providers Name Role Phone Pcp, [...] mouth at bedtime. Bipolar 1 disorder, mixed clonazePAM 1 mg Take 1/2 tablet 90 tablet 0 11/18/2019 Active tabletIndications: up to twice Generalized anxiety during the disorder daytime as needed for anxiety. Take up to 2 tablets as needed at bedtime for insomnia. zolpidem 10 mg Take 0.5 tablets 15 tablet 0 12/04/2019 Active tabletIndications: by mouth at Insomnia, unspecified bedtime as needed type for Insomnia. DULoxetine 30 mg Take 1 capsule by 30 capsule 0 12/25/2019 Active capsuleIndications: mouth daily. Take Bipolar 1 disorder, with the 60mg mixed dose for total of 90mg DULoxetine 60 mg Take 60 mg by 30 capsule 0 12/25/2019 Active CDRSIndications: mouth daily. Take Bipolar 1 disorder, with 30 mg mixed, Generalized capsule for total anxiety disorder dose of 90 mg daily. DULoxetine 60 mg Take 1 capsule by 60 capsule 0 12/25/2019 Active capsuleIndications: mouth 2 (two) Bipolar 1 disorder, times daily. 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 Last Filed Vital Signs Vital Sign Reading Time Taken Comments Blood Pressure 140/89 12/22/2019 6:52 PM LABELING SPECIALIST Pulse 69 12/22/2019 6:52 PM LABELING SPECIALIST Temperature 36.4 C (97.5 F) 12/22/2019 4:54 PM LABELING SPECIALIST Respiratory Rate 18 12/22/2019 6:52 PM LABELING SPECIALIST Oxygen Saturation 97% 12/22/2019 6:52 PM LABELING SPECIALIST Inhaled Oxygen Concentration - - Weight 79.4 kg (175 lb 0.6 oz) 12/22/2019 10:05 AM LABELING SPECIALIST Height 157.5 cm (5' 2") 12/22/2019 8:41 AM LABELING SPECIALIST Body Mass Index 32.01 12/22/2019 8:41 AM LABELING SPECIALIST Plan of Treatment Health Maintenance Due Date Last Done Comments DTaP,Tdap,and Td Vaccines (1 1996 - Tdap) PAP SMEAR 1998 Breast Cancer Screening 2017 (MAMMOGRAM) INFLUENZA VACCINE (#1) 2019 Depression Screening 12/21/2020 12/22/2019, 12/22/2019 PNEUMOCOCCAL 0-64 YEARS Aged Out No longe r eligible based COMBINED SERIES on patient's age to complete this to pic Procedures Procedure Name Priority Date/Time Associated Comments Diagnosis LAB ONLY COVID STAT 12/22/2019 12:45 Suicidal ideation Resu lts for this INTERPRETATION PM LABELING SPECIALIST procedure are in the results section. COVID-19 (ID NOW RAPID STAT 12/22/2019 12:45 Suicidal ideat ion Results for this TESTING) PM LABELING SPECIALIST procedure are i n the results section. ETHANOL STAT Add-On 12/22/2019 11:15 Suicidal ideation Result s for this AM LABELING SPECIALIST procedure are i n the results section. GALV/CLC ONLY - URINE STAT 12/22/2019 11:15 Suicidal ideati on Results for this DRUG (IMMUNOASSAY) - AM LABELING SPECIALIST procedu re are in COMPREHENSIVE DRUG the resul ts SCREEN section. POCT TEST SKYLAR 12/22/2019 11:15 Suicidal ideation Results for this AM LABELING SPECIALIST procedure are i n the results section. URINALYSIS STAT 12/22/2019 11:15 Suicidal ideation Result s for this AM LABELING SPECIALIST procedure are i n the results section. ACETAMINOPHEN STAT 12/22/2019 11:15 Suicidal ideation Resul ts for this AM LABELING SPECIALIST procedure are i n the results section. SALICYLATE STAT 12/22/2019 11:15 Suicidal ideation Result s for this AM LABELING SPECIALIST procedure are i n the results section. COMP. METABOLIC PANEL STAT 12/22/2019 11:15 Suicidal ideati on Results for this (57561) AM LABELING SPECIALIST procedure are i n the results section. CBC WITH DIFF STAT 12/22/2019 11:15 Suicidal ideation Resul ts for this AM LABELING SPECIALIST procedure are i n the results section. LITHIUM Routine 10/15/2019 11:56 Bipolar 1 Results for this AM CDT disorder, mixed procedure ar e in the results section. CONSENT/REFUSAL FOR Routine 10/15/2019 11:38 DIAGNOSIS AND AM CDT TREATMENT ASSIGNMENT OF BENEFITS Routine 10/15/2019 11:38 AM CDT from Last 3 Months Results LAB ONLY COVID INTERPRETATION (12/22/2019 12:45 PM LABELING SPECIALIST) COVID DMT Interpretation/Recommendations: [facility] Interpretation SERVICES Molecular NAAT Test Results for Active Infection by SA RS-CoV-2 Virus: This result indicates that t he patient has tested negative on one occasion for the SARS-CoV-2 virus that causes COVID-19 illness. The most likely interpretation for approximately two-thirds of patients with a negative test is that the patient is truly negative and has not been infected with the SARS-CoV-2 virus. However, for those tested using a nasopharyngeal sample, there is approximately a one-in-t hree chance that the patient was infected and the result of the first test is a "false" negative. This occurs because the virus is predominantly in the lung and out of reach of the nasopharyngeal swab. If the patient continues to have persistent or worsening symptoms, a repeat NAAT test (PCR, Rapid ID Now, etc.) should be performed. Tests for IgM and/or IgG Antibodies to SARS-CoV-2 Viru s: Testing for IgM and IgG anti bodies 1-3 weeks after illness onset will indicate whether the patient has produced antibodies to the virus. At this time, it is not known if the production of antibodies ind icates whether the patient i s immune to future infections with the SARS-CoV-2 virus. Interpretation Result Comments: These interpretation comment s are based upon aggregate data pooled from the [facility] medical record including both current and prior COVID-19 related testing results for the following tests offered at our institution: A. Tests for the Identification of SARS-CoV-2 RNA: SARS-CoV-2 PCR assays includ ing [facility] Aptima, [facility] Fusion, [employer] RealTime, and [employer] Xpert Xpress. SARS-CoV-2 Rapid ID NOW by the ID NOW assay. B. Tests for the Identification of SARS-CoV-2 Antibodi es: Chemiluminescent immunoassay s including Access SARS-CoV-2 IgM (DXI 600), ZzishS Jcwd-[id number]-2 IgG (Vitros 5600 and Vitros 3600), and Daley SARS-CoV-2 IgG (WARE DRESSER I System). These interpretation comment s assume that only the above testing was utilized and that the approved acceptable specimen type(s) were used for a given test. These interpretations are au topopulated into LiveStub based on computerized algorithms matching an interpretation code number to the patient's set of test results. While a clinical pathologist evaluates the combinations for clinical a ccuracy, clinical correlation is recommended as it may not take into account very remote prior testing. Furthermore, it does not consider testing a patient may have had outside of the [facility] system. Additionally, it should be n oted that the computerized algorithm treats the results for PCR testing and Rapid ID NOW testing (also PCR) synonymously, and thus, refers to both testing methodologies as PC R tests. Given that the sens itivity of [facility]'s Rapid ID NOW testing platform is analogous to PCR-based methods, for most patients this has no significant implications for clinical decision making. Howeve r, if a patient with a negat davina result for Rapid ID NOW continues to have a clinical presentation consistent with COVID-19 infection, negative results should be treated as presumptive negative and a new specimen should be tested with alternative PCR molecu lar test. If results for COVID-19 infe ction continue to be negative in the context of a clinical presentation consistent with a viral respiratory illness, it is possible the patient may have an infection with ano ther respiratory virus, such as influenza, rhinovirus, other coronaviruses that cause the common cold, etc. Influenza testing and if clinically indicated a respiratory pathogen panel may be beneficial in this setting. COVID Results SARS-CoV-2 Rapid ID NOW (no units) [facility] Date Value SERVICES 12/22/2019 Not Detected Specimen Swab - NASOPHARYNGEAL SWAB Performing Organization Address City/State/Zipcode Phone Number [facility] CLIA: [id number] [place] [address] [place] [address] COVID-19 (ID NOW RAPID TESTING) (12/22/2019 12:45 PM LABELING SPECIALIST) SARS-CoV-2 Rapid ID Not Detected Not Detected [facility] NOW SERVICES Specimen Swab - NASOPHARYNGEAL SWAB Narrative Performed At ID NOW COVID-19 Assay is an isothermal nucleic acid [facility] amplification test intended for the qualitative detect ion of nucleic acid from SARS-CoV-2 viral RNA in nasopharynge al (SEWING MACHINE MECHANIC) specimens. It is used under Emergency Use [...] testing if clinically indicated. Performing Organization Address City/[facility]/Zipcode Phone Number [facility] CLIA: [id number] [place] [address] [place] [address] POCT TEST (12/22/2019 11:15 AM LABELING SPECIALIST) Pathologist Sig nature POCT PREG negative On board controls acceptable present with C Line POCT PREG LOT # [id number] POCT PREG TEST DATE 2021-06-11 Specimen Urine - URINE, CLEAN CATCH URINALYSIS (12/22/2019 11:15 AM LABELING SPECIALIST) Pathologist Sig nature APPEARANCE Clear Clear [facility] COLOR Yellow Yellow [facility] PH 6.0 4.8 - 8.0 [facility] SP GRAVITY 1.011 1.003 - 1.030 [facility] GLU U QUAL Normal Normal [facility] BLOOD 1+ (A) Negative [facility] KETONES Negative Negative [facility] PROTEIN Negative Negative [facility] UROBILIN Normal Normal [facility] BILIRUBIN Negative Negative [facility] NITRITE Negative Negative [facility] LEUK VISHAL Negative Negative [facility] RBC/HPF 3 0 - 3 HPF [facility] WBC/HPF 1 0 - 5 HPF [facility] BACTERIA Few (A) Negative [facility] SQ EPITH <1 <=2 HPF [facility] Specimen Urine - URINE, CLEAN CATCH Performing Organization Address City/[facility]/Zipcode Phone Number [facility] CLIA: [id number] [place] [address] [place] [address] CBC WITH DIFF (12/22/2019 11:15 AM LABELING SPECIALIST) Pathologist Sig nature WBC 6.88 4.30 - [...] SERVICES MPV 12.1 9.5 - 12.9 fL [facility] NRBC/100 WBC 0.0 0.0 - [...] VENOUS Performing Organization Address City/State/Zipcode Phone Number [facility] CLIA: [id number] [place], [place] [id number] [address] [place] [address] Blvd DRUG PANEL 2 URINE (12/22/2019 11:15 AM LABELING SPECIALIST) Pathologist Sig nature AMPHET Negative Negative [facility] EMILIANA U Negative Negative [facility] BENZO U Negative Negative [facility] Cocaine Metabolite Negative Negative [facility]IC ES METHADONE Negative Negative [facility] OPIATES Negative Negative [facility] PCP Negative Negative [facility] THC Negative Negative [facility] Specimen Urine - URINE, CLEAN CATCH Narrative Performed At Urine Drug Cutoff Ranges [facility] Cocaine: 150 ng/mL Benzodiazepines: 200 ng/mL Methadone: 300 ng/mL Amphetamine: 1,000 ng/mL Opiates: 300 ng/mL Cannabinoids: 50 ng/mL Phencyclidine: 25 ng/mL Barbiturates: 200 ng/mL The results are to be used only for medical (i.e., treatment) purposes. Unconfirmed screening results mus t not be used for non-medical purposes (e.g., employment aram ting, legal testing). Performing Organization Address City/State/[facility] Phone Number [facility] CLIA: [id number] [place] [address] [place] [address] ETHANOL (12/22/2019 11:15 AM LABELING SPECIALIST) Pathologist Sig nature ALCOHOL <10 mg/dL [facility] Specimen Blood - VENOUS Narrative Performed At Toxic Greater than or equal to 80 mg/dL. [facility] NOTE: Whole blood values are approximately 10% to 15% lower than serum and plasma. Performing Organization Address City/[facility] Clinic[facility]ofl Phone Number [facility] CLIA: [id number] [place] [address] [place] [address] SALICYLATE (12/22/2019 11:15 AM LABELING SPECIALIST) Pathologist Sig nature SALICYLATE <10 mg/L [facility] Specimen Blood - VENOUS Narrative Performed At Therapeutic Range: [facility] Analgesic and Antipyretic Use 20-100 mg/L Anti-Inflammatory Use 1 00-250 mg/L Toxic Range: Greater than 300 mg/L Performing Organization Address [facility] Phone Number [facility] CLIA: [id number] [place] [address] [place] [address] ACETAMINOPHEN (12/22/2019 11:15 AM LABELING SPECIALIST) Pathologist Sig nature ACETAMINOP <10.0 (L) 10.0 - 30.0 ug/mL [facility] S Specimen Blood - VENOUS Narrative Performed At Toxic: Greater than 200 ug/mL @ 4 hour post ingestion or [facility] greater than 50 ug/mL @ 12 hour post ingestion Performing Organization Address City/State/Zipcode Phone Number [facility] CLIA: [id number] [place] [address] [place] [address] COMP. METABOLIC PANEL (18557) (12/22/2019 11:15 AM LABELING SPECIALIST) Pathologist Sig nature NA 137 135 - 145 mmol/L [facility] K 4.3 3.5 - 5.0 mmol/L [facility] CL 103 98 - 108 mmol/L [facility] CO2 TOTAL 27 23 - 31 mmol/L [facility] AGAP 7 2 - 16 [facility] BUN 10 7 - 23 mg/dL [facility] GLUCOSE 92 70 - 110 mg/dL [facility] CREATININE 0.60 0.50 - 1.04 [facility] mg/dL SERVICES TOTAL BILI 0.4 0.1 - 1.1 mg/dL [facility] CALCIUM 9.4 8.6 - 10.6 mg/dL [facility] T PROTEIN 7.0 6.3 - 8.2 g/dL [facility] ALBUMIN 4.0 3.5 - 5.0 g/dL [facility] ALK PHOS 114 34 - 122 U/L [facility] ALTv 27 5 - 35 U/L [facility] AST(SGOT) 26 13 - 40 U/L [facility] eGFR Calculation 109.6 mL/min/1.73m2 [facility] (Non-) SERVICES eGFR Calculation 132.9 mL/min/1.73m2 [facility] () SERVICES Specimen Blood - VENOUS Narrative Performed At Association of Glomerular Filtration Rate (GFR) and St aging [facility] of Kidney Disease* [...] . Performing Organization Address City/State/Zipcode Phone Number [facility] CLIA: [id number] [place] [address] [place] [address] LITHIUM (10/15/2019 11:56 AM CDT) Pathologist Sig nature [place] 0.4 (L) 0.6 - 1.2 mmol/L [facility] Specimen Blood Narrative Performed At Toxic Range: Greater than 1.2 mmol/L [facility] Performing Organization Address [facility]/Zipcode Phone Number [facility] CLIA: [id number] [place] [address] CONSENT/REFUSAL FOR DIAGNOSIS AND TREATMENT (10/15/2019 11:38 AM CDT) Specimen Performing Organization Address [facility]/Zipcode Phone Number HIM ASSIGNMENT OF BENEFITS (10/15/2019 11:38 AM CDT) Specimen Performing Organization Address [facility] Phone Number HIM from Last 3 Months
--- OUTSIDE RECORDS SUMMARY | 2020-02-26 12:29 | XMS REPORT | Clinical Summary ---
:1975 Author Organization [facility] Address [address] [place] [id number] Care Team Providers Name Role Phone Pcp, [...] anxiety disorder dose of 90 mg daily. 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 Last Filed Vital Signs Vital Sign Reading Time Taken Comments Blood Pressure 140/89 12/22/2019 6:52 PM [employer]TY SERVICES MANAGER Pulse 69 12/22/2019 6:52 PM [employer]TY SERVICES MANAGER Temperature 36.4 C (97.5 F) 12/22/2019 4:54 PM [employer]O SPECIALTY SERVICES MANAGER Respiratory Rate 18 12/22/2019 6:52 PM AUTO SPECIALTY SERVICES MANAGER Oxygen Saturation 97% 12/22/2019 6:52 PM AUTO SPECIALTY SERVICES MANAGER Inhaled Oxygen Concentration - - Weight 79.4 kg (175 lb 0.6 oz) 12/22/2019 10:05 AM [employer]O SPECIALTY SERVICES MANAGER Height 157.5 cm (5' 2") 12/22/2019 8:41 AM [employer]O SPECIALTY SERVICES MANAGER Body Mass Index 32.01 12/22/2019 8:41 AM AUTO SPECIALTY SERVICES MANAGER Plan of Treatment Health Maintenance Due [...] ideation Resu lts for this INTERPRETATION PM [employer]TY SERVICES MANAGER procedure are in the results section. COVID-19 (ID NOW RAPID STAT 12/22/2019 12:45 Suicidal ideat ion Results for this TESTING) PM [employer]TY SERVICES MANAGER procedure are i n the results section. ETHANOL STAT Add-On 12/22/2019 11:15 Suicidal ideation Result s for this AM [employer]TY SERVICES MANAGER procedure are i n the results section. GALV/CLC ONLY - URINE STAT 12/22/2019 11:15 Suicidal ideati on Results for this DRUG (IMMUNOASSAY) - AM [employer] SPECIALTY SERVICES MANAGER procedu re are in COMPREHENSIVE DRUG the resul ts SCREEN section. POCT TEST SKYLAR 12/22/2019 11:15 Suicidal ideation Results for this AM [employer]TY SERVICES MANAGER procedure are i n the results section. URINALYSIS STAT 12/22/2019 11:15 Suicidal ideation Result s for this AM [employer] SERVICES MANAGER procedure are i n the results section. ACETAMINOPHEN STAT 12/22/2019 11:15 Suicidal ideation Resul ts for this AM [employer]TY SERVICES MANAGER procedure are i n the results section. SALICYLATE STAT 12/22/2019 11:15 Suicidal ideation Result s for this AM [employer]TY SERVICES MANAGER procedure are i n the results section. COMP. METABOLIC PANEL STAT 12/22/2019 11:15 Suicidal ideati on Results for this ([id number]) AM [employer] SPECIALTY SERVICES MANAGER procedure are i n the results section. CBC WITH DIFF STAT 12/22/2019 11:15 Suicidal ideation Resul ts for this AM [employer] SPECIALTY SERVICES MANAGER procedure are i n the results section. LITHIUM Routine 10/15/2019 11:56 Bipolar 1 Results for this AM CDT disorder, mixed procedure ar e in the results section. CONSENT/REFUSAL FOR Routine 10/15/2019 11:38 DIAGNOSIS AND AM CDT TREATMENT ASSIGNMENT OF BENEFITS Routine 10/15/2019 11:38 AM CDT from Last 3 Months Results LAB ONLY COVID INTERPRETATION (12/22/2019 12:45 PM AUTO SPECIALTY SERVICES MANAGER) COVID DMT Interpretation/Recommendations: [facility] Interpretation SERVICES Molecular NAAT Test [...] based upon aggregate data pooled from the [facility] medical record including both current and prior COVID-19 related testing results for the following tests offered at our institution: A. Tests for the Identification of SARS-CoV-2 RNA: SARS-CoV-2 PCR assays includ ing [employer] Aptima, [place] Fusion, [employer] RealTime, and [employer] Xpert Xpress. SARS-CoV-2 Rapid ID NOW by the ID NOW assay. B. Tests for the Identification of SARS-CoV-2 Antibodi es: Chemiluminescent immunoassay s including Access SARS-CoV-2 IgM (DXI 600), [employer] Ljqu-QEYP-HxS-2 IgG (Vitros 5600 and Vitros 3600), and Daley SARS-CoV-2 IgG (DROP WIRE BUILDER I System). These interpretation comment s assume that only the above testing was utilized and that the approved acceptable specimen type(s) were used for a given test. These interpretations are au topopulated into VtagO based on computerized algorithms matching an interpretation code number to the patient's set of test results. While a clinical pathologist evaluates the combinations for clinical a ccuracy, clinical correlation is recommended as it may not take into account very remote prior testing. Furthermore, it does not consider testing a patient may have had outside of the [facility] system. Additionally, it should be n oted that the computerized algorithm treats the results for PCR testing and Rapid ID NOW testing (also PCR) synonymously, and thus, refers to both testing methodologies as PC R tests. Given that the sens itivity of [facility]'s Rapid ID NOW testing platform is analogous [...] Results SARS-CoV-2 Rapid ID NOW (no units) [facility] Date Value SERVICES 12/22/2019 Not Detected Specimen Swab - NASOPHARYNGEAL SWAB Performing Organization Address City/State/Zipcode Phone Number [facility] CLIA: [id number] [place] [address] [place] [address] COVID-19 (ID NOW RAPID TESTING) (12/22/2019 12:45 PM AUTO SPECIALTY SERVICES MANAGER) SARS-CoV-2 Rapid ID Not Detected Not Detected [facility] NOW SERVICES Specimen Swab - NASOPHARYNGEAL SWAB Narrative Performed At ID NOW COVID-19 Assay is an isothermal nucleic acid [facility] amplification test intended for the qualitative detect ion of nucleic acid from SARS-CoV-2 viral RNA in nasopharynge al (DETAIL MANAGER) specimens. It is used under Emergency Use [...] testing if clinically indicated. Performing Organization Address City/[facility] Phone Number [facility] CLIA: [id number] [place] [address] [place] [address] POCT TEST (12/22/2019 11:15 AM AUTO SPECIALTY SERVICES MANAGER) [facility] nature POCT PREG negative On board controls acceptable present with C Line POCT PREG LOT # [id number] POCT PREG TEST DATE 2021-06-11 Specimen Urine - URINE, CLEAN CATCH URINALYSIS (12/22/2019 11:15 AM AUTO SPECIALTY SERVICES MANAGER) [facility] APPEARANCE Clear Clear [place] [facility] COLOR Yellow Yellow [facility] PH 6.0 4.8 - 8.0 [facility] SP GRAVITY 1.011 1.003 - 1.030 [facility] GLU U QUAL Normal Normal [facility] BLOOD 1+ (A) Negative [facility] KETONES Negative Negative [facility] PROTEIN Negative Negative [facility] UROBILIN Normal Normal [facility] BILIRUBIN Negative Negative [facility] NITRITE Negative Negative [facility] LEUK VISHAL Negative Negative [facility] RBC/HPF 3 0 - 3 HPF [facility] WBC/HPF 1 0 - 5 HPF [facility] BACTERIA Few (A) Negative [facility] SQ EPITH <1 <=2 HPF [facility] Specimen Urine - URINE, CLEAN CATCH Performing Organization Address City/[facility]/Zipcode Phone Number [facility] CLIA: [id number] [place] [address] [phone] [address] [facility] CBC WITH DIFF (12/22/2019 11:15 AM AUTO SPECIALTY SERVICES MANAGER) [facility] nature WBC 6.88 4.30 - 11.10 [facility] [...] VENOUS Performing Organization Address City/State/Zipcode Phone Number [facility] CLIA: [id number] [place] [address] [place] [address] DRUG PANEL 2 URINE (12/22/2019 11:15 AM AUTO SPECIALTY SERVICES MANAGER) Pathologist Sig nature AMPHET Negative Negative [facility] EMILIANA U Negative Negative [facility] BENZO U Negative Negative [facility] Cocaine Metabolite Negative Negative [facility] ES METHADONE Negative Negative [facility] OPIATES Negative Negative [facility] PCP Negative Negative [facility] THC Negative Negative [facility] Specimen Urine - URINE, CLEAN CATCH Narrative Performed At Urine Drug Cutoff Ranges [facility] Cocaine: 150 ng/mL Benzodiazepines: 200 ng/mL Methadone: 300 ng/mL Amphetamine: 1,000 ng/mL Opiates: 300 ng/mL Cannabinoids: 50 ng/mL Phencyclidine: 25 ng/mL Barbiturates: 200 ng/mL The results are to be used only for medical (i.e., treatment) purposes. Unconfirmed screening results mus t not be used for non-medical purposes (e.g., employment aram ting, legal testing). Performing Organization Address [facility] Cent[facility]ode Phone Number [facility] CLIA: [id number] [place] [address] [place] [address] ETHANOL (12/22/2019 11:15 AM AUTO SPECIALTY SERVICES MANAGER) Pathologist Sig nature ALCOHOL <10 mg/dL [facility] Specimen Blood - VENOUS Narrative Performed At Toxic Greater than or equal to 80 mg/dL. [facility] NOTE: Whole blood values are approximately 10% to 15% lower than serum and plasma. Performing Organization Address [facility] Centercode Phone Number [facility] CLIA: [id number] [place] [address] [place] [address] SALICYLATE (12/22/2019 11:15 AM AUTO SPECIALTY SERVICES MANAGER) Pathologist Sig nature SALICYLATE <10 mg/L [facility] Specimen Blood - VENOUS Narrative Performed At Therapeutic Range: [facility] Analgesic and Antipyretic Use 20-100 mg/L Anti-Inflammatory Use 1 00-250 mg/L Toxic Range: Greater than 300 mg/L Performing Organization Address [facility] Centercode Phone Number [facility] CLIA: [id number] [place] [address] [place] [address] ACETAMINOPHEN (12/22/2019 11:15 AM AUTO SPECIALTY SERVICES MANAGER) Pathologist Sig nature ACETAMINOP <10.0 (L) 10.0 - 30.0 ug/mL [facility] S Specimen Blood - VENOUS Narrative Performed At Toxic: Greater than 200 ug/mL @ 4 hour post ingestion or [facility] greater than 50 ug/mL @ 12 hour post ingestion Performing Organization Address [facility]/State/Zipcode Phone Number [facility] CLIA: [id number] [place], [place] [id number] [address] [place] [address] COMP. METABOLIC PANEL ([id number]) (12/22/2019 11:15 AM AUTO SPECIALTY SERVICES MANAGER) Pathologist [facility] nature NA 137 135 - 145 mmol/L [facility] K 4.3 3.5 - 5.0 mmol/L [facility] CL 103 98 - 108 mmol/L [facility] CO2 TOTAL 27 23 - 31 mmol/L [facility] AGAP 7 2 - 16 [facility] BUN 10 7 - 23 mg/dL [facility] GLUCOSE 92 70 - 110 mg/dL [facility] CREATININE 0.60 0.50 - 1.04 [facility] mg/dL SERVICES TOTAL BILI 0.4 0.1 - 1.1 mg/dL [facility] CALCIUM 9.4 8.6 - 10.6 mg/dL [facility] T PROTEIN 7.0 6.3 - 8.2 g/dL [facility] ALBUMIN 4.0 3.5 - 5.0 g/dL [facility] ALK PHOS 114 34 - 122 U/L [facility] ALTv 27 5 - 35 U/L [facility] AST(SGOT) 26 13 - 40 U/L [facility] eGFR Calculation 109.6 mL/min/1.73m2 [facility] (Non-) SERVICES eGFR Calculation 132.9 mL/min/1.73m2 [facility] () SERVICES Specimen Blood - VENOUS Narrative Performed At Association of Glomerular Filtration Rate (GFR) and St aging [facility] of Kidney Disease* [...] . Performing Organization Address City/State/Zipcode Phone Number [facility] CLIA: [id number] [place] [address] [place] [address] LITHIUM (10/15/2019 11:56 AM CDT) Pathologist Sig nature [place] 0.4 (L) 0.6 - 1.2 mmol/L [facility] Specimen Blood Narrative Performed At Toxic Range: Greater than 1.2 mmol/L [facility] Performing Organization Address City/[facility]/Zipcode Phone Number [facility] CLIA: [id number] [place] [address] CONSENT/REFUSAL FOR DIAGNOSIS AND TREATMENT (10/15/2019 11:38 AM CDT) Specimen Performing Organization Address [facility]/Zipcode Phone Number HIM ASSIGNMENT OF BENEFITS (10/15/2019 11:38 AM CDT) Specimen Performing Organization Address [facility]/Zipcode Phone Number HIM from Last 3 Months
--- OUTSIDE RECORDS SUMMARY | 2020-02-26 12:29 | XMS REPORT | Clinical Summary ---
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 Last Filed Vital Signs Vital Sign Reading Time Taken Comments Blood Pressure 140/89 12/22/2019 6:52 PM SIGNAL INSPECTOR Pulse 69 12/22/2019 6:52 PM SIGNAL INSPECTOR Temperature 36.4 C (97.5 F) 12/22/2019 4:54 PM SIGNAL INSPECTOR Respiratory Rate 18 12/22/2019 6:52 PM SIGNAL INSPECTOR Oxygen Saturation 97% 12/22/2019 6:52 PM SIGNAL INSPECTOR Inhaled Oxygen Concentration - - Weight 79.4 kg (175 lb 0.6 oz) 12/22/2019 10:05 AM SIGNAL INSPECTOR Height 157.5 cm (5' 2") 12/22/2019 8:41 AM SIGNAL INSPECTOR Body Mass Index 32.01 12/22/2019 8:41 AM SIGNAL INSPECTOR Plan of Treatment Health Maintenance Due Date [...] ideation Resu lts for this INTERPRETATION PM SIGNAL INSPECTOR procedure are in the results section. COVID-19 (ID NOW RAPID STAT 12/22/2019 12:45 Suicidal ideat ion Results for this TESTING) PM SIGNAL INSPECTOR procedure are i n the results section. ETHANOL STAT Add-On 12/22/2019 11:15 Suicidal ideation Result s for this AM SIGNAL INSPECTOR procedure are i n the results section. GALV/CLC ONLY - URINE STAT 12/22/2019 11:15 Suicidal ideati on Results for this DRUG (IMMUNOASSAY) - AM SIGNAL INSPECTOR procedu re are in COMPREHENSIVE DRUG the resul ts SCREEN section. POCT TEST SKYLAR 12/22/2019 11:15 Suicidal ideation Results for this AM SIGNAL INSPECTOR procedure are i n the results section. URINALYSIS STAT 12/22/2019 11:15 Suicidal ideation Result s for this AM SIGNAL INSPECTOR procedure are i n the results section. ACETAMINOPHEN STAT 12/22/2019 11:15 Suicidal ideation Resul ts for this AM SIGNAL INSPECTOR procedure are i n the results section. SALICYLATE STAT 12/22/2019 11:15 Suicidal ideation Result s for this AM SIGNAL INSPECTOR procedure are i n the results section. COMP. METABOLIC PANEL STAT 12/22/2019 11:15 Suicidal ideati on Results for this (35341) AM SIGNAL INSPECTOR procedure are i n the results section. CBC WITH DIFF STAT 12/22/2019 11:15 Suicidal ideation Resul ts for this AM SIGNAL INSPECTOR procedure are i n the results section. LITHIUM Routine 10/15/2019 11:56 Bipolar 1 Results for this AM CDT disorder, mixed procedure ar e in the results section. CONSENT/REFUSAL FOR Routine 10/15/2019 11:38 DIAGNOSIS AND AM CDT TREATMENT ASSIGNMENT OF BENEFITS Routine 10/15/2019 11:38 AM CDT from Last 3 Months Results LAB ONLY COVID INTERPRETATION (12/22/2019 12:45 PM SIGNAL INSPECTOR) COVID DMT Interpretation/Recommendations: [facility] Interpretation SERVICES Molecular NAAT Test [...] based upon aggregate data pooled from the [facility] medical record including both current and prior COVID-19 related testing results for the following tests offered at our institution: A. Tests for the Identification of SARS-CoV-2 RNA: SARS-CoV-2 PCR assays includ ing [place] Aptima, [place] Fusion, Daley RealTime, and Compositence Xpert Xpress. SARS-CoV-2 Rapid ID NOW by the ID NOW assay. B. Tests for the Identification of SARS-CoV-2 Antibodi es: Chemiluminescent immunoassay s including Access SARS-CoV-2 IgM (DXI 600), Infinite.lyS Xlku-IOPF-YxD-2 IgG (Vitros 5600 and Vitros 3600), and Daley SARS-CoV-2 IgG (MILLWORK ESTIMATOR I System). These interpretation comment s assume that only the above testing was utilized and that the approved acceptable specimen type(s) were used for a given test. These interpretations are au topopulated into TruQC based on computerized algorithms matching an interpretation code number to the patient's set of test results. While a clinical pathologist evaluates the combinations for clinical a ccuracy, clinical correlation is recommended as it may not take into account very remote prior testing. Furthermore, it does not consider testing a patient may have had outside of the [facility] system. Additionally, it should be n oted that the computerized algorithm treats the results for PCR testing and Rapid ID NOW testing (also PCR) synonymously, and thus, refers to both testing methodologies as PC R tests. Given that the sens itivity of [facility]'s Rapid ID NOW testing platform is analogous [...] Results SARS-CoV-2 Rapid ID NOW (no units) [facility] Date Value SERVICES 12/22/2019 Not Detected Specimen Swab - NASOPHARYNGEAL SWAB Performing Organization Address City/State/Zipcode Phone Number [facility] CLIA: [id number] [place] [address] [place] [address] COVID-19 (ID NOW RAPID TESTING) (12/22/2019 12:45 PM SIGNAL INSPECTOR) SARS-CoV-2 Rapid ID Not Detected Not Detected [facility] NOW SERVICES Specimen Swab - NASOPHARYNGEAL SWAB Narrative Performed At ID NOW COVID-19 Assay is an isothermal nucleic acid [facility] amplification test intended for the qualitative detect ion of nucleic acid from SARS-CoV-2 viral RNA in nasopharynge al (MELTER CASTER) specimens. It is used under Emergency Use [...] testing if clinically indicated. Performing Organization Address City/[facility]/Zipcode Phone Number [facility] CLIA: [id number] [place] [address] [place] [address] POCT TEST (12/22/2019 11:15 AM SIGNAL INSPECTOR) Pathologist Sig nature POCT PREG negative On board controls acceptable present with C Line POCT PREG LOT # [id number] POCT PREG TEST DATE 2021-06-11 Specimen Urine - URINE, CLEAN CATCH URINALYSIS (12/22/2019 11:15 AM SIGNAL INSPECTOR) Pathologist Sig nature APPEARANCE Clear Clear [facility] COLOR Yellow Yellow [facility] PH 6.0 4.8 - 8.0 [facility] SP GRAVITY 1.011 1.003 - 1.030 [facility] GLU U QUAL Normal Normal [facility] BLOOD 1+ (A) Negative [facility] KETONES Negative Negative [facility] PROTEIN Negative Negative [facility] UROBILIN Normal Normal [facility] BILIRUBIN Negative Negative [facility] NITRITE Negative Negative [facility] LEUK VISHAL Negative Negative [facility] RBC/HPF 3 0 - 3 HPF [facility] WBC/HPF 1 0 - 5 HPF [facility] BACTERIA Few (A) Negative [facility] SQ EPITH <1 <=2 HPF [facility] Specimen Urine - URINE, CLEAN CATCH Performing Organization Address City/[facility]/Zipcode Phone Number [facility] CLIA: [id number] [place] [address] [place] [address] CBC WITH DIFF (12/22/2019 11:15 AM SIGNAL INSPECTOR) Pathologist Sig nature WBC 6.88 4.30 - [...] SERVICES MPV 12.1 9.5 - 12.9 fL [facility] NRBC/100 WBC 0.0 0.0 - [...] VENOUS Performing Organization Address City/State/Zipcode Phone Number [facility] CLIA: [id number] [place], [place] [address] [place] [address] Blvd DRUG PANEL 2 URINE (12/22/2019 11:15 AM SIGNAL INSPECTOR) Pathologist Sig nature AMPHET Negative Negative [facility] EMILIANA U Negative Negative [facility] BENZO U Negative Negative [facility] Cocaine Metabolite Negative Negative [facility] SERVIC ES METHADONE Negative Negative [facility] OPIATES Negative Negative [facility] PCP Negative Negative [facility] THC Negative Negative [facility] Specimen Urine - URINE, CLEAN CATCH Narrative Performed At Urine Drug Cutoff Ranges [facility] Cocaine: 150 ng/mL Benzodiazepines: 200 ng/mL Methadone: 300 ng/mL Amphetamine: 1,000 ng/mL Opiates: 300 ng/mL Cannabinoids: 50 ng/mL Phencyclidine: 25 ng/mL Barbiturates: 200 ng/mL The results are to be used only for medical (i.e., treatment) purposes. Unconfirmed screening results mus t not be used for non-medical purposes (e.g., employment aram ting, legal testing). Performing Organization Address City/State/[facility] Centercode Phone Number [facility] CLIA: [id number] [place] [address] [place] [address] ETHANOL (12/22/2019 11:15 AM SIGNAL INSPECTOR) Pathologist Sig nature ALCOHOL <10 mg/dL [facility] Specimen Blood - VENOUS Narrative Performed At Toxic Greater than or equal to 80 mg/dL. [facility] NOTE: Whole blood values are approximately 10% to 15% lower than serum and plasma. Performing Organization Address City/[facility] Centerconc Phone Number [facility] CLIA: [id number] [place] [address] [place] [address] SALICYLATE (12/22/2019 11:15 AM SIGNAL INSPECTOR) Pathologist Sig nature SALICYLATE <10 mg/L [facility] Specimen Blood - VENOUS Narrative Performed At Therapeutic Range: [facility] Analgesic and Antipyretic Use 20-100 mg/L Anti-Inflammatory Use 1 00-250 mg/L Toxic Range: Greater than 300 mg/L Performing Organization Address [facility] Centerconc Phone Number [facility] CLIA: [id number] [place] [address] [place] [address] ACETAMINOPHEN (12/22/2019 11:15 AM SIGNAL INSPECTOR) Pathologist Sig nature ACETAMINOP <10.0 (L) 10.0 - 30.0 ug/mL [facility] SERVICE S Specimen Blood - VENOUS Narrative Performed At Toxic: Greater than 200 ug/mL @ 4 hour post ingestion or [facility] greater than 50 ug/mL @ 12 hour post ingestion Performing Organization Address City/State/Zipcode Phone Number [facility] CLIA: [id number] [facility] [place] [address] [place] [address] COMP. METABOLIC PANEL (27276) (12/22/2019 11:15 AM SIGNAL INSPECTOR) Pathologist Sig nature NA 137 135 - 145 mmol/L [facility] K 4.3 3.5 - 5.0 mmol/L [facility] CL 103 98 - 108 mmol/L [facility] CO2 TOTAL 27 23 - 31 mmol/L [facility] AGAP 7 2 - 16 [facility] BUN 10 7 - 23 mg/dL [facility] GLUCOSE 92 70 - 110 mg/dL [facility] CREATININE 0.60 0.50 - 1.04 [facility] mg/dL SERVICES TOTAL BILI 0.4 0.1 - 1.1 mg/dL [facility] CALCIUM 9.4 8.6 - 10.6 mg/dL [facility] T PROTEIN 7.0 6.3 - 8.2 g/dL [facility] ALBUMIN 4.0 3.5 - 5.0 g/dL [facility] ALK PHOS 114 34 - 122 U/L [facility] ALTv 27 5 - 35 U/L [facility] AST(SGOT) 26 13 - 40 U/L [facility] eGFR Calculation 109.6 mL/min/1.73m2 [facility] (Non-) SERVICES eGFR Calculation 132.9 mL/min/1.73m2 [facility] () SERVICES Specimen Blood - VENOUS Narrative Performed At Association of Glomerular Filtration Rate (GFR) and St aging [facility] SERVICES of Kidney Disease* + + [...] Performing Organization Address City/State/Zipcode Phone Number [facility] CLIA: [id number] [place] [address] [place] [address] LITHIUM (10/15/2019 11:56 AM CDT) Pathologist Sig nature Simpson 0.4 (L) 0.6 - 1.2 mmol/L [facility] Specimen Blood Narrative Performed At Toxic Range: Greater than 1.2 mmol/L [facility] Performing Organization Address [facility]/Zipcode Phone Number [facility] CLIA: [id number] [place] [address] CONSENT/REFUSAL FOR DIAGNOSIS AND TREATMENT (10/15/2019 11:38 AM CDT) Specimen Performing Organization Address [facility]/Zipcode Phone Number HIM ASSIGNMENT OF BENEFITS (10/15/2019 11:38 AM CDT) Specimen Performing Organization Address [facility] Cancer Centercode Phone Number HIM from Last 3 Months
--- OUTSIDE RECORDS SUMMARY | 2020-02-26 12:30 | XMS REPORT | Clinical Summary ---
:1975 Author Organization 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 LITHOGRAPHIC (Primary Dx) Olivia Nelson MD 12/22/2019 Travel 12/19/2019 Travel 10/15/2019 Memorial Counselor Visit Phlebotomy Robert Shepherd Bipolar 1 disorder, MD [place] mixed Pob, Adc Lab Main 10/15/2019 Travel 10/15/2019 Orders Only Doctor Unassigned, Merkel from Last 3 Months Social History Tobacco Use Types Packs/Day Years Used Date Never Smoker Smokeless Tobacco: Never Used Sex Assigned at Date Recorded Not on file COVID-19 Exposure Response Date Recorded In the last month, have you been in contact with No / Unsure 12/22/2019 10:04 AM PRICING CONSULTANT someone who was confirmed or suspected to have Coronavirus / COVID-19? Last Filed Vital Signs Vital Sign Reading Time Taken Comments Blood Pressure 140/89 12/22/2019 6:52 PM PRICING CONSULTANT Pulse 69 12/22/2019 6:52 PM PRICING CONSULTANT Temperature 36.4 C (97.5 F) 12/22/2019 4:54 PM PRICING CONSULTANT Respiratory Rate 18 12/22/2019 6:52 PM PRICING CONSULTANT Oxygen Saturation 97% 12/22/2019 6:52 PM PRICING CONSULTANT Inhaled Oxygen Concentration - - Weight 79.4 kg (175 lb 0.6 oz) 12/22/2019 10:05 AM PRICING CONSULTANT Height 157.5 cm (5' 2") 12/22/2019 8:41 AM PRICING CONSULTANT Body Mass Index 32.01 12/22/2019 8:41 AM PRICING CONSULTANT Plan of Treatment Health Maintenance Due Date [...] ideation Resu lts for this INTERPRETATION PM PRICING CONSULTANT procedure are in the results section. COVID-19 (ID NOW RAPID STAT 12/22/2019 12:45 Suicidal ideat ion Results for this TESTING) PM PRICING CONSULTANT procedure are i n the results section. ETHANOL STAT Add-On 12/22/2019 11:15 Suicidal ideation Result s for this AM PRICING CONSULTANT procedure are i n the results section. GALV/CLC ONLY - URINE STAT 12/22/2019 11:15 Suicidal ideati on Results for this DRUG (IMMUNOASSAY) - AM PRICING CONSULTANT procedu re are in COMPREHENSIVE DRUG the resul ts SCREEN section. POCT TEST SKYLAR 12/22/2019 11:15 Suicidal ideation Results for this AM PRICING CONSULTANT procedure are i n the results section. URINALYSIS STAT 12/22/2019 11:15 Suicidal ideation Result s for this AM PRICING CONSULTANT procedure are i n the results section. ACETAMINOPHEN STAT 12/22/2019 11:15 Suicidal ideation Resul ts for this AM PRICING CONSULTANT procedure are i n the results section. SALICYLATE STAT 12/22/2019 11:15 Suicidal ideation Result s for this AM PRICING CONSULTANT procedure are i n the results section. COMP. METABOLIC PANEL STAT 12/22/2019 11:15 Suicidal ideati on Results for this (54579) AM PRICING CONSULTANT procedure are i n the results section. CBC WITH DIFF STAT 12/22/2019 11:15 Suicidal ideation Resul ts for this AM PRICING CONSULTANT procedure are i n the results section. LITHIUM Routine 10/15/2019 11:56 Bipolar 1 Results for this AM CDT disorder, mixed procedure ar e in the results section. CONSENT/REFUSAL FOR Routine 10/15/2019 11:38 DIAGNOSIS AND AM CDT TREATMENT ASSIGNMENT OF BENEFITS Routine 10/15/2019 11:38 AM CDT from Last 3 Months Results LAB ONLY COVID INTERPRETATION (12/22/2019 12:45 PM PRICING CONSULTANT) COVID DMT Interpretation/Recommendations: [facility] Interpretation SERVICES Molecular NAAT Test [...] based upon aggregate data pooled from the [facility] medical record including both current and prior COVID-19 related testing results for the following tests offered at our institution: A. Tests for the Identification of SARS-CoV-2 RNA: SARS-CoV-2 PCR assays includ ing Leckrone Aptima, Leckrone Fusion, Daley RealTime, and IDInteract Xpert Xpress. SARS-CoV-2 Rapid ID NOW by the ID NOW assay. B. Tests for the Identification of SARS-CoV-2 Antibodi es: Chemiluminescent immunoassay s including Access SARS-CoV-2 IgM (DXI 600), ioGeneticsS Wpjn-DPVT-EmY-2 IgG (Vitros 5600 and Vitros 3600), and Daley SARS-CoV-2 IgG (ARMHOLE PRESSER I System). These interpretation comment s assume that only the above testing was utilized and that the approved acceptable specimen type(s) were used for a given test. These interpretations are au topopulated into [employer]dStar based on computerized algorithms matching an interpretation code number to the patient's set of test results. While a clinical pathologist evaluates the combinations for clinical a ccuracy, clinical correlation is recommended as it may not take into account very remote prior testing. Furthermore, it does not consider testing a patient may have had outside of the [facility] system. Additionally, it should be n oted that the computerized algorithm treats the results for PCR testing and Rapid ID NOW testing (also PCR) synonymously, and thus, refers to both testing methodologies as PC R tests. Given that the sens itivity of [facility]'s Rapid ID NOW testing platform is analogous [...] Results SARS-CoV-2 Rapid ID NOW (no units) [facility] Date Value SERVICES 12/22/2019 Not Detected Specimen Swab - NASOPHARYNGEAL SWAB Performing Organization Address City/State/Zipcode Phone Number [facility] CLIA: [id number] [place] [address] [place] [address] COVID-19 (ID NOW RAPID TESTING) (12/22/2019 12:45 PM PRICING CONSULTANT) SARS-CoV-2 Rapid ID Not Detected Not Detected [facility] NOW SERVICES Specimen Swab - NASOPHARYNGEAL SWAB Narrative Performed At ID NOW COVID-19 Assay is an isothermal nucleic acid [facility] SERVICES amplification test intended for the qualitative detect ion of nucleic acid from SARS-CoV-2 viral RNA in nasopharynge al (FLUE TILE PRESS OPERATOR) specimens. It is used under Emergency Use [...] testing if clinically indicated. Performing Organization Address City/[facility]/Zipcode Phone Number [facility] CLIA: [id number] [place] [address] [place] [address] POCT TEST (12/22/2019 11:15 AM PRICING CONSULTANT) Pathologist Sig nature POCT PREG negative On board controls acceptable present with C Line POCT PREG LOT # [id number] POCT PREG TEST DATE 2021-06-11 Specimen Urine - URINE, CLEAN CATCH URINALYSIS (12/22/2019 11:15 AM PRICING CONSULTANT) Pathologist Sig nature APPEARANCE Clear Clear [facility] COLOR Yellow Yellow [facility] PH 6.0 4.8 - 8.0 [facility] SP GRAVITY 1.011 1.003 - 1.030 [facility] GLU U QUAL Normal Normal [facility] BLOOD 1+ (A) Negative [facility] KETONES Negative Negative [facility] PROTEIN Negative Negative [facility] UROBILIN Normal Normal [facility] BILIRUBIN Negative Negative [facility] NITRITE Negative Negative [facility] LEUK VISHAL Negative Negative [facility] RBC/HPF 3 0 - 3 HPF [facility] WBC/HPF 1 0 - 5 HPF [facility] BACTERIA Few (A) Negative [facility] SQ EPITH <1 <=2 HPF [facility] Specimen Urine - URINE, CLEAN CATCH Performing Organization Address City/[facility]/Zipcode Phone Number [facility] CLIA: [id number] [place] [address] [place] [address] CBC WITH DIFF (12/22/2019 11:15 AM PRICING CONSULTANT) Pathologist Sig nature WBC 6.88 4.30 - [...] [facility] CLIA: [id number] [place], [place] [address] [place] [address] Blvd DRUG PANEL 2 URINE (12/22/2019 11:15 AM PRICING CONSULTANT) Pathologist Sig nature AMPHET Negative Negative [facility] EMILIANA U Negative Negative [facility] BENZO U Negative Negative [facility] Cocaine Metabolite Negative Negative [facility]IC ES METHADONE Negative Negative [facility] [...] Organization Address City/State/[facility] Phone Number [facility] CLIA: [id number] [place] [address] [place] [address] ETHANOL (12/22/2019 11:15 AM PRICING CONSULTANT) Pathologist Sig nature ALCOHOL <10 mg/dL [facility] Specimen Blood - VENOUS Narrative Performed At Toxic Greater than or equal to 80 mg/dL. [facility] NOTE: Whole blood values are approximately 10% to 15% lower than serum and plasma. Performing Organization Address City/[facility] Phone Number [facility] CLIA: [id number] [place] [address] [place] [address] SALICYLATE (12/22/2019 11:15 AM PRICING CONSULTANT) Pathologist Sig nature SALICYLATE <10 mg/L [facility] Specimen Blood - VENOUS Narrative Performed At Therapeutic Range: [facility] Analgesic and Antipyretic Use 20-100 mg/L Anti-Inflammatory Use 1 00-250 mg/L Toxic Range: Greater than 300 mg/L Performing Organization Address [facility] Phone Number [facility] CLIA: [id number] [place] [address] [place] [address] ACETAMINOPHEN (12/22/2019 11:15 AM PRICING CONSULTANT) Pathologist Sig nature ACETAMINOP <10.0 (L) 10.0 - 30.0 ug/mL [facility] S Specimen Blood - VENOUS Narrative Performed At Toxic: Greater than 200 ug/mL @ 4 hour post ingestion or [facility] greater than 50 ug/mL @ 12 hour post ingestion Performing Organization Address City/State/Zipcode Phone Number [facility] CLIA: [id number] [facility] [place] [address] [place] [address] COMP. METABOLIC PANEL ([id number]) (12/22/2019 11:15 AM PRICING CONSULTANT) Pathologist Sig nature NA [phone] - [...] [facility] CLIA: [id number] [place] [address] [place] [address] LITHIUM (10/15/2019 11:56 AM CDT) Pathologist Sig nature [place] 0.4 (L) 0.6 - 1.2 mmol/L [facility] Specimen Blood Narrative Performed At Toxic Range: Greater than 1.2 mmol/L [facility] Performing Organization Address [facility]/Zipcode Phone Number [facility] CLIA: [id number] [place] [address] CONSENT/REFUSAL FOR DIAGNOSIS AND TREATMENT (10/15/2019 11:38 AM CDT) Specimen Performing Organization Address [facility]/Zipcode Phone Number HIM ASSIGNMENT OF BENEFITS (10/15/2019 11:38 AM CDT) Specimen Performing Organization Address [facility] Phone Number HIM from Last 3 Months
--- OUTSIDE RECORDS SUMMARY | 2020-02-26 12:30 | XMS REPORT | Summary of Care ---
:1975 Author Organization [facility] - Health Address [address] [place] [address] Care Team Providers Name Role Phone Pcp, Does Not Have A Primary Care Provider Encounter Details Date Type Department Care Team Description 12/30/2019 Orders Only [facility] Doctor Unassigned, No [address] [facility] [place] [address] [place] [address] Allergies Active Allergy Reactions Severity Noted Date Comments Sulfa (Sulfonamide Antibiotics) Hives 9 documented as of this encounter (statuses as of 12/30/2019) Medications Medication Sig Dispensed Refills Start Date [...] (two) Bipolar 1 disorder, times daily. mixed documented as of this encounter (statuses as of 12/30/2019) Active Problems No known active problemsdocumented as of this encounter (statuses as of 12/30/2019) Social History Tobacco Use Types Packs/Day Years Used Date Never Smoker Smokeless Tobacco: Never Used Sex Assigned at Date Recorded Not on file COVID-19 Exposure Response Date Recorded In the last month, have you been in contact with No / Unsure 12/22/2019 10:04 AM STOCK AND STATION AGENT someone who was confirmed or suspected to have Coronavirus / COVID-19? documented as of this encounter Last Filed Vital Signs Not on filedocumented in this encounter Plan of Treatment Date Type Specialty Care Team Description 01/19/2020 Office Visit Psychiatry Barry Dan M D [address] [place] [address]. [place] [address] [phone] Health Maintenance Due Date Last Done Comments DTaP,Tdap,and Td Vaccines (1 1996 - Tdap) PAP SMEAR 1998 Breast Cancer Screening 2017 (MAMMOGRAM) INFLUENZA VACCINE (#1) 2019 Depression Screening 12/21/2020 12/22/2019, 12/22/2019 PNEUMOCOCCAL 0-64 YEARS Aged Out No longe r eligible based COMBINED SERIES on patient's age to complete this to [facility] documented as of this encounter Procedures Procedure Name Priority Date/Time Associated Diagnosis Comme nts EXTERNAL PROVIDER Routine 12/30/2019 12:01 AM STOCK AND STATION AGENT RECORDS documented in this encounter Results Not on filedocumented in this encounter
--- OUTSIDE RECORDS SUMMARY | 2020-02-26 12:30 | XMS REPORT | Clinical Summary ---
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) Olivia Nelson MD 12/22/2019 Travel 12/19/2019 Travel 10/15/2019 [employer] Visit Phlebotomy Robert Shepherd Bipolar 1 disorder, MD [place] mixed Pob, Adc Lab Main 10/15/2019 Travel 10/15/2019 Orders Only Doctor Unassigned, [place] from Last 3 Months Social History Tobacco Use Types Packs/Day Years Used Date Never Smoker Smokeless Tobacco: Never Used Sex Assigned at Date Recorded Not on file COVID-19 Exposure Response Date Recorded In the last month, have you been in contact with No / Unsure 12/22/2019 10:04 AM CLINICAL PRACTITIONER someone who was confirmed or suspected to have Coronavirus / COVID-19? Last Filed Vital Signs Vital Sign Reading Time Taken Comments Blood Pressure 140/89 12/22/2019 6:52 PM CLINICAL PRACTITIONER Pulse 69 12/22/2019 6:52 PM CLINICAL PRACTITIONER Temperature 36.4 C (97.5 F) 12/22/2019 4:54 PM CLINICAL PRACTITIONER Respiratory Rate 18 12/22/2019 6:52 PM CLINICAL PRACTITIONER Oxygen Saturation 97% 12/22/2019 6:52 PM CLINICAL PRACTITIONER Inhaled Oxygen Concentration - - Weight 79.4 kg (175 lb 0.6 oz) 12/22/2019 10:05 AM CLINICAL PRACTITIONER Height 157.5 cm (5' 2") 12/22/2019 8:41 AM CLINICAL PRACTITIONER Body Mass Index 32.01 12/22/2019 8:41 AM CLINICAL PRACTITIONER Plan of Treatment Health Maintenance Due Date [...] ideation Resu lts for this INTERPRETATION PM CLINICAL PRACTITIONER procedure are in the results section. COVID-19 (ID NOW RAPID STAT 12/22/2019 12:45 Suicidal ideat ion Results for this TESTING) PM CLINICAL PRACTITIONER procedure are i n the results section. ETHANOL STAT Add-On 12/22/2019 11:15 Suicidal ideation Result s for this AM CLINICAL PRACTITIONER procedure are i n the results section. GALV/CLC ONLY - URINE STAT 12/22/2019 11:15 Suicidal ideati on Results for this DRUG (IMMUNOASSAY) - AM CLINICAL PRACTITIONER procedu re are in COMPREHENSIVE DRUG the resul ts SCREEN section. POCT TEST SKYLAR 12/22/2019 11:15 Suicidal ideation Results for this AM CLINICAL PRACTITIONER procedure are i n the results section. URINALYSIS STAT 12/22/2019 11:15 Suicidal ideation Result s for this AM CLINICAL PRACTITIONER procedure are i n the results section. ACETAMINOPHEN STAT 12/22/2019 11:15 Suicidal ideation Resul ts for this AM CLINICAL PRACTITIONER procedure are i n the results section. SALICYLATE STAT 12/22/2019 11:15 Suicidal ideation Result s for this AM CLINICAL PRACTITIONER procedure are i n the results section. COMP. METABOLIC PANEL STAT 12/22/2019 11:15 Suicidal ideati on Results for this (53672) AM CLINICAL PRACTITIONER procedure are i n the results section. CBC WITH DIFF STAT 12/22/2019 11:15 Suicidal ideation Resul ts for this AM CLINICAL PRACTITIONER procedure are i n the results section. LITHIUM Routine 10/15/2019 11:56 Bipolar 1 Results for this AM CDT disorder, mixed procedure ar e in the results section. CONSENT/REFUSAL FOR Routine 10/15/2019 11:38 DIAGNOSIS AND AM CDT TREATMENT ASSIGNMENT OF BENEFITS Routine 10/15/2019 11:38 AM CDT from Last 3 Months Results LAB ONLY COVID INTERPRETATION (12/22/2019 12:45 PM CLINICAL PRACTITIONER) COVID DMT Interpretation/Recommendations: [facility]ATORY Interpretation SERVICES Molecular NAAT Test [...] based upon aggregate data pooled from the [facility] medical record including both current and prior COVID-19 related testing results for the following tests offered at our institution: A. Tests for the Identification of SARS-CoV-2 RNA: SARS-CoV-2 PCR assays includ ing [employer] Aptima, [employer] Fusion, [employer] RealTime, and [employer] Xpert Xpress. SARS-CoV-2 Rapid ID NOW by the ID NOW assay. B. Tests for the Identification of SARS-CoV-2 Antibodi es: Chemiluminescent immunoassay s including Access SARS-CoV-2 IgM (DXI 600), [employer] [id number]-2 IgG (Vitros 5600 and Vitros 3600), and Daley SARS-CoV-2 IgG (CHOCOLATIER I System). These interpretation comment s assume that only the above testing was utilized and that the approved acceptable specimen type(s) were used for a given test. These interpretations are au topopulated into [employer] based on computerized algorithms matching an interpretation code number to the patient's set of test results. While a clinical pathologist evaluates the combinations for clinical a ccuracy, clinical correlation is recommended as it may not take into account very remote prior testing. Furthermore, it does not consider testing a patient may have had outside of the [facility] system. Additionally, it should be n oted that the computerized algorithm treats the results for PCR testing and Rapid ID NOW testing (also PCR) synonymously, and thus, refers to both testing methodologies as PC R tests. Given that the sens itivity of [facility]'s Rapid ID NOW testing platform is analogous [...] Results SARS-CoV-2 Rapid ID NOW (no units) [facility]ORATORY Date Value SERVICES 12/22/2019 Not Detected Specimen Swab - NASOPHARYNGEAL SWAB Performing Organization Address City/State/Zipcode Phone Number [facility] SERVICES CLIA: [id number] [place] [address] [place] [address] COVID-19 (ID NOW RAPID TESTING) (12/22/2019 12:45 PM CLINICAL PRACTITIONER) SARS-CoV-2 Rapid ID Not Detected Not Detected [facility] NOW SERVICES Specimen Swab - NASOPHARYNGEAL SWAB Narrative Performed At ID NOW COVID-19 Assay is an isothermal nucleic acid [facility] amplification test intended for the qualitative detect ion of nucleic acid from SARS-CoV-2 viral RNA in nasopharynge al (BOBBIN INSPECTOR) specimens. It is used under Emergency Use [...] testing if clinically indicated. Performing Organization Address City/[facility]/Zipcode Phone Number [facility] CLIA: [id number] [place] [address] [place] [address] POCT TEST (12/22/2019 11:15 AM CLINICAL PRACTITIONER) Pathologist Sig nature POCT PREG negative On board controls acceptable present with C Line POCT PREG LOT # [id number] POCT PREG TEST DATE 2021-06-11 Specimen Urine - URINE, CLEAN CATCH URINALYSIS (12/22/2019 11:15 AM CLINICAL PRACTITIONER) Pathologist Sig nature APPEARANCE Clear Clear [facility] SERVICES COLOR Yellow Yellow [facility] PH 6.0 4.8 - 8.0 [facility] SP GRAVITY 1.011 1.003 - 1.030 [facility] SERVICES GLU U QUAL Normal Normal [facility] SERVICES BLOOD 1+ (A) Negative [facility] [...] - URINE, CLEAN CATCH Performing Organization Address City/[facility]/Zipcode Phone Number [facility] CLIA: [id number] [place] [address] [place] [address] CBC WITH DIFF (12/22/2019 11:15 AM CLINICAL PRACTITIONER) Pathologist Sig nature WBC 6.88 4.30 - [...] SERVICES MPV 12.1 9.5 - 12.9 fL [facility] SERVICES NRBC/100 WBC 0.0 0.0 - [...] VENOUS Performing Organization Address City/State/Zipcode Phone Number [facility] CLIA: [id number] [place], [place] [address] [place] [address] Blvd DRUG PANEL 2 URINE (12/22/2019 11:15 AM CLINICAL PRACTITIONER) Pathologist Sig nature AMPHET Negative Negative [facility] EMILIANA U Negative Negative [facility] BENZO U Negative Negative [facility] Cocaine Metabolite Negative Negative [facility] SERVIC ES METHADONE Negative Negative [facility] OPIATES Negative Negative [facility] PCP Negative Negative [facility] THC Negative Negative [facility] SERVICES Specimen Urine - URINE, CLEAN CATCH Narrative Performed At Urine Drug Cutoff Ranges [facility] Cocaine: 150 ng/mL Benzodiazepines: 200 ng/mL Methadone: 300 ng/mL Amphetamine: 1,000 ng/mL Opiates: 300 ng/mL Cannabinoids: 50 ng/mL Phencyclidine: 25 ng/mL Barbiturates: 200 ng/mL The results are to be used only for medical (i.e., treatment) purposes. Unconfirmed screening results mus t not be used for non-medical purposes (e.g., employment aram ting, legal testing). Performing Organization Address City/State/[facility] Mex[facility]ode Phone Number [facility] CLIA: [id number] [place] [address] [place] [address] ETHANOL (12/22/2019 11:15 AM CLINICAL PRACTITIONER) Pathologist Sig nature ALCOHOL <10 mg/dL [facility] SERVICES Specimen Blood - VENOUS Narrative Performed At Toxic Greater than or equal to 80 mg/dL. [facility] SERVICES NOTE: Whole blood values are approximately 10% to 15% lower than serum and plasma. Performing Organization Address City/[facility] Mex[facility]al Phone Number [facility] CLIA: [id number] [place] [address] [place] [address] SALICYLATE (12/22/2019 11:15 AM CLINICAL PRACTITIONER) Pathologist Sig nature SALICYLATE <10 mg/L [facility] SERVICES Specimen Blood - VENOUS Narrative Performed At Therapeutic Range: [facility] Analgesic and Antipyretic Use 20-100 mg/L Anti-Inflammatory Use 1 00-250 mg/L Toxic Range: Greater than 300 mg/L Performing Organization Address [facility] Phone Number [facility] CLIA: [id number] [place] [address] [place] [address] ACETAMINOPHEN (12/22/2019 11:15 AM CLINICAL PRACTITIONER) Pathologist Sig nature ACETAMINOP <10.0 (L) 10.0 - 30.0 ug/mL [facility]ATORY SERVICE S Specimen Blood - VENOUS Narrative Performed At Toxic: Greater than 200 ug/mL @ 4 hour post ingestion or [facility] greater than 50 ug/mL @ 12 hour post ingestion Performing Organization Address City/State/Zipcode Phone Number [facility] CLIA: [id number] [facility] [place] [address] [place] [address] COMP. METABOLIC PANEL (00664) (12/22/2019 11:15 AM CLINICAL PRACTITIONER) Pathologist Sig nature NA 137 135 - 145 mmol/L [facility] SERVICES K 4.3 3.5 - 5.0 mmol/L [facility] SERVICES CL 103 98 - 108 mmol/L [facility] CO2 TOTAL 27 23 - 31 mmol/L [facility] SERVICES AGAP 7 2 - 16 [facility] SERVICES BUN 10 7 - 23 mg/dL [facility] SERVICES GLUCOSE 92 70 - 110 mg/dL [facility] SERVICES CREATININE 0.60 0.50 - 1.04 [facility]OR[facility]ORY mg/dL SERVICES TOTAL BILI 0.4 0.1 - 1.1 mg/dL [facility] SERVICES CALCIUM 9.4 8.6 - 10.6 mg/dL [facility] SERVICES T PROTEIN 7.0 6.3 - 8.2 g/dL [facility] SERVICES ALBUMIN 4.0 3.5 - 5.0 g/dL [facility] SERVICES ALK PHOS 114 34 - 122 U/L [facility] SERVICES ALTv 27 5 - 35 U/L [facility]ORY SERVICES AST(SGOT) 26 13 - 40 U/L [facility] SERVICES eGFR Calculation 109.6 mL/min/1.73m2 [facility] LABORATORY (Non-) SERVICES eGFR Calculation 132.9 mL/min/1.73m2 [facility]ORATORY () SERVICES Specimen Blood - VENOUS Narrative Performed At Association of Glomerular Filtration Rate (GFR) and St aging [facility] SERVICES of Kidney Disease* + + [...] . Performing Organization Address City/State/Zipcode Phone Number [facility] CLIA: [id number] [place] [address] [place] [address] LITHIUM (10/15/2019 11:56 AM CDT) Pathologist Sig nature [place] 0.4 (L) 0.6 - 1.2 mmol/L [facility] Specimen Blood Narrative Performed At Toxic Range: Greater than 1.2 mmol/L [facility] Performing Organization Address [facility]/Zipcode Phone Number [facility] CLIA: [id number] [place] [address] CONSENT/REFUSAL FOR DIAGNOSIS AND TREATMENT (10/15/2019 11:38 AM CDT) Specimen Performing Organization Address [facility]/Zipcode Phone Number HIM ASSIGNMENT OF BENEFITS (10/15/2019 11:38 AM CDT) Specimen Performing Organization Address [facility] Mex[facility]ode Phone Number HIM from Last 3 Months
--- OUTSIDE RECORDS SUMMARY | 2020-02-26 12:31 | XMS REPORT | Clinical Summary ---
:1975 Author Organization [facility] Address [address] [place] [id number] Care Team Providers Name Role Phone Pcp, [...] by 0 Active tablet mouth at bedtime. zolpidem 10 mg Take 0.5 tablets 15 [...] (two) Bipolar 1 disorder, times daily. mixed lithium carbonate 300 Take 2 tablets by 60 tablet 1 12/30/2019 Active mg tabletIndications: mouth at bedtime. Bipolar 1 disorder, mixed clonazePAM 1 mg Take 1/2 tablet 90 tablet 0 12/30/2019 Active tabletIndications: up to twice Generalized anxiety during the disorder daytime as needed for anxiety. Take up to 2 tablets as needed at bedtime for insomnia. 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 Last Filed Vital Signs Vital Sign Reading Time Taken Comments Blood Pressure 140/89 12/22/2019 6:52 PM CALL BOX WIRER Pulse 69 12/22/2019 6:52 PM CALL BOX WIRER Temperature 36.4 C (97.5 F) 12/22/2019 4:54 PM CALL BOX WIRER Respiratory Rate 18 12/22/2019 6:52 PM CALL BOX WIRER Oxygen Saturation 97% 12/22/2019 6:52 PM CALL BOX WIRER Inhaled Oxygen Concentration - - Weight 79.4 kg (175 lb 0.6 oz) 12/22/2019 10:05 AM CALL BOX WIRER Height 157.5 cm (5' 2") 12/22/2019 8:41 AM CALL BOX WIRER Body Mass Index 32.01 12/22/2019 8:41 AM CALL BOX WIRER Plan of Treatment Health Maintenance Due Date Last Done Comments DTaP,Tdap,and Td Vaccines (1 1996 - Tdap) PAP SMEAR 1998 Breast Cancer Screening 2017 (MAMMOGRAM) INFLUENZA VACCINE (#1) 2019 Depression Screening 12/21/2020 12/22/2019, 12/22/2019 PNEUMOCOCCAL 0-64 YEARS Aged Out No longe r eligible based COMBINED SERIES on patient's age to complete this to pic Procedures Procedure Name Priority Date/Time Associated Comments Diagnosis EXTERNAL PROVIDER Routine 12/30/2019 12:01 RECORDS AM CALL BOX WIRER LAB ONLY COVID STAT 12/22/2019 12:45 Suicidal ideation Resu lts for this INTERPRETATION PM CALL BOX WIRER procedure are in the results section. COVID-19 (ID NOW RAPID STAT 12/22/2019 12:45 Suicidal ideat ion Results for this TESTING) PM CALL BOX WIRER procedure are i n the results section. ETHANOL STAT Add-On 12/22/2019 11:15 Suicidal ideation Result s for this AM CALL BOX WIRER procedure are i n the results section. GALV/CLC ONLY - URINE STAT 12/22/2019 11:15 Suicidal ideati on Results for this DRUG (IMMUNOASSAY) - AM CALL BOX WIRER procedu re are in COMPREHENSIVE DRUG the resul ts SCREEN section. POCT TEST SKYLAR 12/22/2019 11:15 Suicidal ideation Results for this AM CALL BOX WIRER procedure are i n the results section. URINALYSIS STAT 12/22/2019 11:15 Suicidal ideation Result s for this AM CALL BOX WIRER procedure are i n the results section. ACETAMINOPHEN STAT 12/22/2019 11:15 Suicidal ideation Resul ts for this AM CALL BOX WIRER procedure are i n the results section. SALICYLATE STAT 12/22/2019 11:15 Suicidal ideation Result s for this AM CALL BOX WIRER procedure are i n the results section. COMP. METABOLIC PANEL STAT 12/22/2019 11:15 Suicidal ideati on Results for this (45936) AM CALL BOX WIRER procedure are i n the results section. CBC WITH DIFF STAT 12/22/2019 11:15 Suicidal ideation Resul ts for this AM CALL BOX WIRER procedure are i n the results section. EMERGENCY DEPARTMENT Routine 12/22/2019 12:01 DOCUMENTS AM CALL BOX WIRER LITHIUM Routine 10/15/2019 11:56 Bipolar 1 Results for this AM CDT disorder, mixed procedure ar e in the results section. CONSENT/REFUSAL FOR Routine 10/15/2019 11:38 DIAGNOSIS AND AM CDT TREATMENT ASSIGNMENT OF BENEFITS Routine 10/15/2019 11:38 AM CDT from Last 3 Months Results EXTERNAL PROVIDER RECORDS (12/30/2019 12:01 AM CALL BOX WIRER) Specimen Performing Organization Address City/State/Zipcode Phone Number [facility] ONLY COVID INTERPRETATION (12/22/2019 12:45 PM CALL BOX WIRER) COVID DMT [facility]ation[facility]commendations: [facility] Molecular NAAT Test Results for [...] based upon aggregate data pooled from the [facility] EPIC medical record including both current and prior COVID-19 related testing results for the following tests offered at our institution: A. Tests for the Identification of SARS-CoV-2 RNA: SARS-CoV-2 PCR assays includ ing TGV Software Aptima, [place] Fusion, Daley RealTime, and ScoreGrid Xpert Xpress. SARS-CoV-2 Rapid ID NOW by the ID NOW assay. B. Tests for the Identification of SARS-CoV-2 Antibodi es: Chemiluminescent immunoassay s including Access SARS-CoV-2 IgM (DXI 600), Whaleback SystemsS Lgbj-[id number]-2 IgG (Vitros 5600 and Vitros 3600), and Daley SARS-CoV-2 IgG (DATABASE MANAGEMENT SPECIALIST I System). These interpretation comment s assume that only the above testing was utilized and that the approved acceptable specimen type(s) were used for a given test. These interpretations are au topopulated into EPIC based on computerized algorithms matching an interpretation code number to the patient's set of test results. While a clinical pathologist evaluates the combinations for clinical a ccuracy, clinical correlation is recommended as it may not take into account very remote prior testing. Furthermore, it does not consider testing a patient may have had outside of the [facility] system. Additionally, it should be n oted that the computerized algorithm treats the results for PCR testing and Rapid ID NOW testing (also PCR) synonymously, and thus, refers to both testing methodologies as PC R tests. Given that the sens itivity of [facility]'s Rapid ID NOW testing platform [...] Results SARS-CoV-2 Rapid ID NOW (no units) [facility] Date Value SERVICES 12/22/2019 Not Detected Specimen Swab - NASOPHARYNGEAL SWAB Performing Organization Address City/State/Zipcode Phone Number [facility] CLIA: [id number] [place] [address] [place] [address] COVID-19 (ID NOW RAPID TESTING) (12/22/2019 12:45 PM CALL BOX WIRER) SARS-CoV-2 Rapid ID Not Detected Not Detected [facility] NOW SERVICES Specimen Swab - NASOPHARYNGEAL SWAB Narrative Performed At ID NOW COVID-19 Assay is an isothermal nucleic acid [facility] amplification test intended for the qualitative detect ion of nucleic acid from SARS-CoV-2 viral RNA in nasopharynge al (MOVEMENT THERAPIST) specimens. It is used under Emergency Use [...] testing if clinically indicated. Performing Organization Address City/[facility]/Zipcode Phone Number [facility] CLIA: [id number] [place], [place] [id number] [address] [place] [address] POCT TEST (12/22/2019 11:15 AM CALL BOX WIRER) Pathologist Sig nature POCT PREG negative On board controls acceptable present with C Line POCT PREG LOT # [id number] POCT PREG TEST DATE 2021-06-11 Specimen Urine - URINE, CLEAN CATCH URINALYSIS (12/22/2019 11:15 AM CALL BOX WIRER) Pathologist Sig nature APPEARANCE Clear Clear [facility] COLOR Yellow Yellow [facility] PH 6.0 4.8 - 8.0 [facility] SP GRAVITY 1.011 1.003 - 1.030 [facility] GLU U QUAL Normal Normal [facility] BLOOD 1+ (A) Negative [facility] [...] - URINE, CLEAN CATCH Performing Organization Address [facility]/Zipcode Phone Number [facility] CLIA: [id number] [place], [place] [address] [address] [place] [address] CBC WITH DIFF (12/22/2019 11:15 AM CALL BOX WIRER) Pathologist Sig nature WBC 6.88 4.30 - [...] VENOUS Performing Organization Address City/State/Zipcode Phone Number [facility] CLIA: [id number] [place] [address] [place] [address] DRUG PANEL 2 URINE (12/22/2019 11:15 AM CALL BOX WIRER) Pathologist Sig nature AMPHET Negative Negative [facility] EMILIANA U Negative Negative [facility] BENZO U Negative Negative [facility] Cocaine Metabolite Negative Negative [facility] ES METHADONE Negative Negative [facility] OPIATES Negative Negative [facility] PCP Negative Negative [facility] THC Negative Negative [facility] Specimen Urine - URINE, CLEAN CATCH Narrative Performed At Urine Drug Cutoff Ranges [facility] Cocaine: 150 ng/mL Benzodiazepines: 200 ng/mL Methadone: 300 ng/mL Amphetamine: 1,000 ng/mL Opiates: 300 ng/mL Cannabinoids: 50 ng/mL Phencyclidine: 25 ng/mL Barbiturates: 200 ng/mL The results are to be used only for medical (i.e., treatment) purposes. Unconfirmed screening results mus t not be used for non-medical purposes (e.g., employment aram ting, legal testing). Performing Organization Address City/State/[facility] Phone Number [facility] CLIA: [id number] [place] [address] [place] [address] ETHANOL (12/22/2019 11:15 AM CALL BOX WIRER) Pathologist Sig nature ALCOHOL <10 mg/dL [facility] Specimen Blood - VENOUS Narrative Performed At Toxic Greater than or equal to 80 mg/dL. [facility] NOTE: Whole blood values are approximately 10% to 15% lower than serum and plasma. Performing Organization Address City/State/Zipcode Phone Number [facility] CLIA: [id number] [place] [address] [place] [address] SALICYLATE (12/22/2019 11:15 AM CALL BOX WIRER) Pathologist Sig nature SALICYLATE <10 mg/L [facility] Specimen Blood - VENOUS Narrative Performed At Therapeutic Range: [facility] Analgesic and Antipyretic Use 20-100 mg/L Anti-Inflammatory Use 1 00-250 mg/L Toxic Range: Greater than 300 mg/L Performing Organization Address City/[facility] Cent[facility]ode Phone Number [facility] CLIA: [id number] [place] [address] [place] [address] ACETAMINOPHEN (12/22/2019 11:15 AM CALL BOX WIRER) Pathologist [facility] nature ACETAMINOP <10.0 (L) 10.0 - 30.0 ug/mL [facility] S Specimen Blood - VENOUS Narrative Performed At [facility]: Greater than 200 ug/mL @ 4 hour post ingestion or [facility] greater than 50 ug/mL @ 12 hour post ingestion Performing Organization Address City/State/Zipcode Phone Number [facility] CLIA: [id number] [place] [address] [place] [address] COMP. METABOLIC PANEL ([id number]) (12/22/2019 11:15 AM CALL BOX WIRER) Pathologist [facility] NA 137 135 - 145 mmol/L [facility] K 4.3 3.5 - 5.0 mmol/L [facility] CL 103 98 - 108 mmol/L [facility] CO2 TOTAL 27 23 - 31 mmol/L [facility] AGAP 7 2 - 16 [facility] BUN 10 7 - 23 mg/dL [facility] GLUCOSE 92 70 - 110 mg/dL [facility] CREATININE 0.60 0.50 - 1.04 [facility] mg/dL SERVICES TOTAL BILI 0.4 0.1 - 1.1 mg/dL [facility] CALCIUM 9.4 8.6 - 10.6 mg/dL [facility] T PROTEIN 7.0 6.3 - 8.2 g/dL [facility] ALBUMIN 4.0 3.5 - 5.0 g/dL [facility] ALK PHOS 114 34 - 122 U/L [facility] ALTv 27 5 - 35 U/L [facility] AST(SGOT) 26 13 - 40 U/L [facility] eGFR Calculation 109.6 mL/min/1.73m2 [facility] (Non-) SERVICES eGFR Calculation 132.9 mL/min/1.73m2 [facility] () SERVICES Specimen Blood - VENOUS Narrative Performed At Association of Glomerular Filtration Rate (GFR) and St aging [facility] SERVICES of Kidney Disease* [...] . Performing Organization Address City/State/Zipcode Phone Number [facility] CLIA: [id number] [place] [address] [place] [address] EMERGENCY DEPARTMENT DOCUMENTS (12/22/2019 12:01 AM CALL BOX WIRER) Specimen Performing Organization Address City/State/Zipcode Phone Number [facility] LITHIUM (10/15/2019 11:56 AM CDT) Pathologist Sig nature [place] 0.4 (L) 0.6 - 1.2 mmol/L [facility] Specimen Blood Narrative Performed At Toxic Range: Greater than 1.2 mmol/L [facility] Performing Organization Address City/State/Zipcode Phone Number [facility] CLIA: [id number] [place] [address] CONSENT/REFUSAL FOR DIAGNOSIS AND TREATMENT (10/15/2019 11:38 AM CDT) Specimen Performing Organization Address City/State/Zipcode Phone Number [facility] ASSIGNMENT OF BENEFITS (10/15/2019 11:38 AM CDT) Specimen Performing Organization Address City/State/Zipcode Phone Number [facility] from Last 3 Months
--- OUTSIDE RECORDS SUMMARY | 2020-02-26 12:31 | XMS REPORT | Clinical Summary ---
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 Last Filed Vital Signs Vital Sign Reading Time Taken Comments Blood Pressure 140/89 12/22/2019 6:52 PM ASSISTANT PRESS OPERATOR OFFSET Pulse 69 12/22/2019 6:52 PM ASSISTANT PRESS OPERATOR OFFSET Temperature 36.4 C (97.5 F) 12/22/2019 4:54 PM ASSISTANT PRESS OPERATOR OFFSET Respiratory Rate 18 12/22/2019 6:52 PM ASSISTANT PRESS OPERATOR OFFSET Oxygen Saturation 97% 12/22/2019 6:52 PM ASSISTANT PRESS OPERATOR OFFSET Inhaled Oxygen Concentration - - Weight 79.4 kg (175 lb 0.6 oz) 12/22/2019 10:05 AM ASSISTANT PRESS OPERATOR OFFSET Height 157.5 cm (5' 2") 12/22/2019 8:41 AM ASSISTANT PRESS OPERATOR OFFSET Body Mass Index 32.01 12/22/2019 8:41 AM ASSISTANT PRESS OPERATOR OFFSET Plan of Treatment Health Maintenance Due Date [...] EXTERNAL PROVIDER Routine 12/30/2019 12:01 RECORDS AM ASSISTANT PRESS OPERATOR OFFSET LAB ONLY COVID STAT 12/22/2019 12:45 Suicidal ideation Resu lts for this INTERPRETATION PM ASSISTANT PRESS OPERATOR OFFSET procedure are in the results section. COVID-19 (ID NOW RAPID STAT 12/22/2019 12:45 Suicidal ideat ion Results for this TESTING) PM ASSISTANT PRESS OPERATOR OFFSET procedure are i n the results section. ETHANOL STAT Add-On 12/22/2019 11:15 Suicidal ideation Result s for this AM ASSISTANT PRESS OPERATOR OFFSET procedure are i n the results section. GALV/CLC ONLY - URINE STAT 12/22/2019 11:15 Suicidal ideati on Results for this DRUG (IMMUNOASSAY) - AM ASSISTANT PRESS OPERATOR OFFSET procedu re are in COMPREHENSIVE DRUG the resul ts SCREEN section. POCT TEST SKYLAR 12/22/2019 11:15 Suicidal ideation Results for this AM ASSISTANT PRESS OPERATOR OFFSET procedure are i n the results section. URINALYSIS STAT 12/22/2019 11:15 Suicidal ideation Result s for this AM ASSISTANT PRESS OPERATOR OFFSET procedure are i n the results section. ACETAMINOPHEN STAT 12/22/2019 11:15 Suicidal ideation Resul ts for this AM ASSISTANT PRESS OPERATOR OFFSET procedure are i n the results section. SALICYLATE STAT 12/22/2019 11:15 Suicidal ideation Result s for this AM ASSISTANT PRESS OPERATOR OFFSET procedure are i n the results section. COMP. METABOLIC PANEL STAT 12/22/2019 11:15 Suicidal ideati on Results for this (10464) AM ASSISTANT PRESS OPERATOR OFFSET procedure are i n the results section. CBC WITH DIFF STAT 12/22/2019 11:15 Suicidal ideation Resul ts for this AM ASSISTANT PRESS OPERATOR OFFSET procedure are i n the results section. EMERGENCY DEPARTMENT Routine 12/22/2019 12:01 DOCUMENTS AM ASSISTANT PRESS OPERATOR OFFSET LITHIUM Routine 10/15/2019 11:56 Bipolar 1 Results for this AM CDT disorder, mixed procedure ar e in the results section. CONSENT/REFUSAL FOR Routine 10/15/2019 11:38 DIAGNOSIS AND AM CDT TREATMENT ASSIGNMENT OF BENEFITS Routine 10/15/2019 11:38 AM CDT from Last 3 Months Results EXTERNAL PROVIDER RECORDS (12/30/2019 12:01 AM ASSISTANT PRESS OPERATOR OFFSET) Specimen Performing Organization Address City/State/Zipcode Phone Number [facility] LAB ONLY COVID INTERPRETATION (12/22/2019 12:45 PM ASSISTANT PRESS OPERATOR OFFSET) COVID DMT Interpretation/Recommendations: [facility] Molecular NAAT Test Results [...] based upon aggregate data pooled from the [facility] EPIC medical record including both current and prior COVID-19 related testing results for the following tests offered at our institution: A. Tests for the Identification of SARS-CoV-2 RNA: SARS-CoV-2 PCR assays includ ing Go Kin Packs Aptima, Saint Joe Fusion, Daley RealTime, and NetDragon Xpert Xpress. SARS-CoV-2 Rapid ID NOW by the ID NOW assay. B. Tests for the Identification of SARS-CoV-2 Antibodi es: Chemiluminescent immunoassay s including Access SARS-CoV-2 IgM (DXI 600), Sport TelegramS Khya-OLBS-GrE-2 IgG (Vitros 5600 and Vitros 3600), and Daley SARS-CoV-2 IgG (ROTOR BALANCER I System). These interpretation comment s assume [...] patient may have had outside of the [facility] system. Additionally, it should be n oted that the computerized algorithm treats the results for PCR testing and Rapid ID NOW testing (also PCR) synonymously, and thus, refers to both testing methodologies as PC R tests. Given that the sens itivity of [facility]'s Rapid ID NOW testing platform is [...] Results SARS-CoV-2 Rapid ID NOW (no units) [facility] Date Value SERVICES 12/22/2019 Not Detected Specimen Swab - NASOPHARYNGEAL SWAB Performing Organization Address City/State/Zipcode Phone Number [facility] CLIA: [id number] [place] [address] [place] [address] COVID-19 (ID NOW RAPID TESTING) (12/22/2019 12:45 PM ASSISTANT PRESS OPERATOR OFFSET) SARS-CoV-2 Rapid ID Not Detected Not Detected [facility] NOW SERVICES Specimen Swab - NASOPHARYNGEAL SWAB Narrative Performed At ID NOW COVID-19 Assay is an isothermal nucleic acid [facility] amplification test intended for the qualitative detect ion of nucleic acid from SARS-CoV-2 viral RNA in nasopharynge al (INFERTILITY NURSE) specimens. It is used under Emergency Use [...] testing if clinically indicated. Performing Organization Address City/[facility]/Zipcode Phone Number [facility] CLIA: [id number] [place], [place] [id number] [address] [place] [address] POCT TEST (12/22/2019 11:15 AM ASSISTANT PRESS OPERATOR OFFSET) Pathologist Sig nature POCT PREG negative On board controls acceptable present with C Line POCT PREG LOT # [id number] POCT PREG TEST DATE 2021-06-11 Specimen Urine - URINE, CLEAN CATCH URINALYSIS (12/22/2019 11:15 AM ASSISTANT PRESS OPERATOR OFFSET) Pathologist Sig nature APPEARANCE Clear Clear [facility] COLOR Yellow Yellow [facility] PH 6.0 4.8 - 8.0 [facility] SP GRAVITY 1.011 1.003 - 1.030 [facility] GLU U QUAL Normal Normal [facility] BLOOD 1+ (A) Negative [facility] [...] - URINE, CLEAN CATCH Performing Organization Address [facility]/Zipcode Phone Number [facility] CLIA: [id number] [place], [place] [address] [address] [place] [address] CBC WITH DIFF (12/22/2019 11:15 AM ASSISTANT PRESS OPERATOR OFFSET) Pathologist Sig nature WBC 6.88 4.30 - [...] City/State/Zipcode Phone Number [facility] CLIA: [id number] [place] [address] [place] [address] DRUG PANEL 2 URINE (12/22/2019 11:15 AM ASSISTANT PRESS OPERATOR OFFSET) Pathologist Sig nature AMPHET Negative Negative [facility] EMILIANA U Negative Negative [facility] BENZO U Negative Negative [facility] Cocaine Metabolite Negative Negative [facility]IC ES METHADONE Negative Negative [facility] OPIATES Negative Negative [facility] PCP Negative Negative [facility] THC Negative Negative [facility] Specimen Urine - URINE, CLEAN CATCH Narrative Performed At Urine Drug Cutoff Ranges [facility] Cocaine: 150 ng/mL Benzodiazepines: 200 ng/mL Methadone: 300 ng/mL Amphetamine: 1,000 ng/mL Opiates: 300 ng/mL Cannabinoids: 50 ng/mL Phencyclidine: 25 ng/mL Barbiturates: 200 ng/mL The results are to be used only for medical (i.e., treatment) purposes. Unconfirmed screening results mus t not be used for non-medical purposes (e.g., employment aram ting, legal testing). Performing Organization Address City/State/[facility] Phone Number [facility] CLIA: [id number] [place] [address] [place] [address] ETHANOL (12/22/2019 11:15 AM ASSISTANT PRESS OPERATOR OFFSET) Pathologist Sig nature ALCOHOL <10 mg/dL [facility] Specimen Blood - VENOUS Narrative Performed At Toxic Greater than or equal to 80 mg/dL. [facility] NOTE: Whole blood values are approximately 10% to 15% lower than serum and plasma. Performing Organization Address City/State/Zipcode Phone Number [facility] CLIA: [id number] [place] [address] [place] [address] SALICYLATE (12/22/2019 11:15 AM ASSISTANT PRESS OPERATOR OFFSET) Pathologist Sig nature SALICYLATE <10 mg/L [facility] Specimen Blood - VENOUS Narrative Performed At Therapeutic Range: [facility] Analgesic and Antipyretic Use 20-100 mg/L Anti-Inflammatory Use 1 00-250 mg/L Toxic Range: Greater than 300 mg/L Performing Organization Address City/[facility] Phone Number [facility] CLIA: [id number] [place] [address] [place] [address] ACETAMINOPHEN (12/22/2019 11:15 AM ASSISTANT PRESS OPERATOR OFFSET) Pathologist [facility] nature ACETAMINOP <10.0 (L) 10.0 - 30.0 ug/mL [facility] S Specimen Blood - VENOUS Narrative Performed At [facility]: Greater than 200 ug/mL @ 4 hour post ingestion or [facility] greater than 50 ug/mL @ 12 hour post ingestion Performing Organization Address City/State/Zipcode Phone Number [facility] CLIA: [id number] [place] [address] [place] [address] COMP. METABOLIC PANEL (56464) (12/22/2019 11:15 AM ASSISTANT PRESS OPERATOR OFFSET) Pathologist [facility] NA 137 135 - 145 mmol/L [facility] K 4.3 3.5 - 5.0 mmol/L [facility] CL 103 98 - 108 mmol/L [facility] CO2 TOTAL 27 23 - 31 mmol/L [facility] AGAP 7 2 - 16 [facility] BUN 10 7 - 23 mg/dL [facility] GLUCOSE 92 70 - 110 mg/dL [facility] CREATININE 0.60 0.50 - 1.04 [facility] mg/dL SERVICES TOTAL BILI 0.4 0.1 - 1.1 mg/dL [facility] CALCIUM 9.4 8.6 - 10.6 mg/dL [facility] T PROTEIN 7.0 6.3 - 8.2 g/dL [facility] ALBUMIN 4.0 3.5 - 5.0 g/dL [facility] ALK PHOS 114 34 - 122 U/L [facility] ALTv 27 5 - 35 U/L [facility] AST(SGOT) 26 13 - 40 U/L [facility] eGFR Calculation 109.6 mL/min/1.73m2 [facility] (Non-) SERVICES eGFR Calculation 132.9 mL/min/1.73m2 [facility] () SERVICES Specimen Blood - VENOUS Narrative Performed At Association of Glomerular Filtration Rate (GFR) and St aging [facility] of Kidney [...] . Performing Organization Address City/State/Zipcode Phone Number [facility] CLIA: [id number] [place] [address] [place] [address] EMERGENCY DEPARTMENT DOCUMENTS (12/22/2019 12:01 AM ASSISTANT PRESS OPERATOR OFFSET) Specimen Performing Organization Address City/State/Zipcode Phone Number [facility] LITHIUM (10/15/2019 11:56 AM CDT) Pathologist Sig nature Bertram 0.4 (L) 0.6 - 1.2 mmol/L [facility] LAB[facility] Specimen Blood Narrative Performed At Toxic Range: Greater than 1.2 mmol/L [facility] Performing Organization Address City/State/Zipcode Phone Number [facility] CLIA: [id number] [place] [address] CONSENT/REFUSAL FOR DIAGNOSIS AND TREATMENT (10/15/2019 11:38 AM CDT) Specimen Performing Organization Address City/State/Zipcode Phone Number [facility] ASSIGNMENT OF BENEFITS (10/15/2019 11:38 AM CDT) Specimen Performing Organization Address City/State/Zipcode Phone Number [facility] from Last 3 Months
--- OUTSIDE RECORDS SUMMARY | 2020-02-26 12:32 | XMS REPORT | Clinical Summary ---
:1975 Author Organization [facility] Address [address] [place] [id number] Care Team Providers Name Role Phone Pcp, [...] mouth at bedtime. lithium carbonate 300 Take 1 tab by 90 tablet 1 01/19/2020 Active mg tabletIndications: mouth in the Bipolar 1 disorder, morning, 2 tabs mixed by mouth in the evening. DULoxetine 60 mg Take 1 capsule by 60 capsule 1 01/19/2020 Active capsuleIndications: mouth 2 (two) Bipolar 1 disorder, times daily. mixed clonazePAM 1 mg Take 1/2 tablet 90 tablet 0 01/27/2020 Active tabletIndications: up to twice Generalized anxiety during the disorder daytime as needed for anxiety. Take up to 2 tablets as needed at bedtime for insomnia. Active Problems No known active problems Encounters Date Type Specialty Care Team Description 01/19/2020 Travel 01/16/2020 Travel 12/30/2019 Orders Only Doctor Unassigned, [place] 12/22/2019 Emergency Emergency Medicine Patti Rose, Suic idal ideation MOLDER FITTING (Primary Dx) Olivia Nelson MD 12/22/2019 Travel 12/19/2019 Travel from Last 3 Months Social History Tobacco Use Types Packs/Day Years Used Date Never Smoker Smokeless Tobacco: Never Used Sex Assigned at Date Recorded Not on file COVID-19 Exposure Response Date Recorded In the last month, have you been in contact with No / Unsure 01/19/2020 7:54 AM [facility] someone who was confirmed or suspected to have Coronavirus / COVID-19? Last Filed Vital Signs Vital Sign Reading Time Taken Comments Blood Pressure 129/75 01/19/2020 8:12 AM [facility] Pulse 62 01/19/2020 8:12 AM [facility] Temperature 36.4 C (97.5 F) 12/22/2019 4:54 PM [facility]PITAL [facility] Respiratory Rate 18 01/19/2020 8:12 AM [facility] Oxygen Saturation 97% 12/22/2019 6:52 PM [facility]OSP[facility] Inhaled Oxygen Concentration - - Weight 97.1 kg (214 lb) 01/19/2020 8:12 AM [facility] Height 157.5 cm (5' 2") 01/19/2020 8:12 AM [facility] Body Mass Index 39.14 01/19/2020 8:12 AM [facility] Plan of Treatment Health Maintenance Due Date Last Done Comments DTaP,Tdap,and Td Vaccines (1 1996 - Tdap) PAP SMEAR 1998 Breast Cancer Screening 2017 (MAMMOGRAM) INFLUENZA VACCINE (#1) 2019 Depression Screening 01/18/2021 01/19/2020, 01/19/2020 PNEUMOCOCCAL 0-64 YEARS Aged Out No longe r eligible based COMBINED SERIES on patient's age to complete this to pic Procedures Procedure Name Priority Date/Time Associated Comments Diagnosis EXTERNAL PROVIDER Routine 12/30/2019 12:01 RECORDS AM [facility] LAB ONLY COVID STAT 12/22/2019 12:45 Suicidal ideation Resu lts for this INTERPRETATION PM [facility] procedure are in the results section. COVID-19 (ID NOW RAPID STAT 12/22/2019 12:45 Suicidal ideat ion Results for this TESTING) PM [facility] procedure are i n the results section. ETHANOL STAT Add-On 12/22/2019 11:15 Suicidal ideation Result s for this AM [facility] procedure are i n the results section. GALV/CLC ONLY - URINE STAT 12/22/2019 11:15 Suicidal ideati on Results for this DRUG (IMMUNOASSAY) - AM [facility]OS[facility]ER procedu re are in COMPREHENSIVE DRUG the resul ts SCREEN section. POCT TEST SKYLAR 12/22/2019 11:15 Suicidal ideation Results for this AM [facility] procedure are i n the results section. URINALYSIS STAT 12/22/2019 11:15 Suicidal ideation Result s for this AM [facility] procedure are i n the results section. ACETAMINOPHEN STAT 12/22/2019 11:15 Suicidal ideation Resul ts for this AM [facility] procedure are i n the results section. SALICYLATE STAT 12/22/2019 11:15 Suicidal ideation Result s for this AM [facility] procedure are i n the results section. COMP. METABOLIC PANEL STAT 12/22/2019 11:15 Suicidal ideati on Results for this (18119) AM [facility] procedure are i n the results section. CBC WITH DIFF STAT 12/22/2019 11:15 Suicidal ideation Resul ts for this AM [facility] procedure are i n the results section. EMERGENCY DEPARTMENT Routine 12/22/2019 12:01 DOCUMENTS AM [facility] EMERGENCY SERVICES Routine 12/22/2019 12:01 AGREEMENTS AND AM [facility] AUTHORIZATIONS PATIENT LEAVING Routine 12/22/2019 12:01 AGAINST MEDICAL ADVICE AM [facility]OSPITAL [facility] from Last 3 Months Results EXTERNAL PROVIDER RECORDS (12/30/2019 12:01 AM HOS[facility]) Specimen Performing Organization Address City/State/Zipcode Phone Number [facility] LAB ONLY COVID INTERPRETATION (12/22/2019 12:45 PM HOSPITAL [facility]) COVID DMT Interpretation/Recommendations: [facility] Interpretation SERVICES Molecular NAAT [...] upon aggregate data pooled from the [facility] medical record including both current and prior COVID-19 related testing results for the following tests offered at our institution: A. Tests for the Identification of SARS-CoV-2 RNA: SARS-CoV-2 PCR assays includ ing [employer] Aptima, [employer] Fusion, Daley RealTime, and [employer] Xpert Xpress. SARS-CoV-2 Rapid ID NOW by the ID NOW assay. B. Tests for the Identification of SARS-CoV-2 Antibodi es: Chemiluminescent immunoassay s including Access SARS-CoV-2 IgM (DXI 600), [email or web address] Uejm-FXZS-XyR-2 IgG (Vitros 5600 and Vitros 3600), and Daley SARS-CoV-2 IgG (PROGRAM WRITER I System). These interpretation comment s assume that only the above testing was utilized and that the approved acceptable specimen type(s) were used for a given test. These interpretations are au topopulated into [employer] based on computerized algorithms matching an interpretation code number to the patient's set of test results. While a clinical pathologist evaluates the combinations for clinical a ccuracy, clinical correlation is recommended as it may not take into account very remote prior testing. Furthermore, it does not consider testing a patient may have had outside of the [facility] system. Additionally, it should be n oted that the computerized algorithm treats the results for PCR testing and Rapid ID NOW testing (also PCR) synonymously, and thus, refers to both testing methodologies as PC R tests. Given that the sens itivity of [facility]'s Rapid ID NOW testing platform [...] Results SARS-CoV-2 Rapid ID NOW (no units) [facility] Date Value SERVICES 12/22/2019 Not Detected Specimen Swab - NASOPHARYNGEAL SWAB Performing Organization Address City/[facility] Phone Number [facility] CLIA: [id number] [place] [address] [place] [address] COVID-19 (ID NOW RAPID TESTING) (12/22/2019 12:45 PM HOSPITAL [facility]) SARS-CoV-2 Rapid ID Not Detected Not Detected [facility] NOW SERVICES Specimen Swab - NASOPHARYNGEAL SWAB Narrative Performed At ID NOW COVID-19 Assay is an isothermal nucleic acid [facility] amplification test intended for the qualitative detect ion of nucleic acid from SARS-CoV-2 viral RNA in nasopharynge al (CURBING STONECUTTER) specimens. It is used under Emergency Use [...] testing if clinically indicated. Performing Organization Address City/[facility]/Zipcode Phone Number [facility] CLIA: [id number] [place] [address] [place] [address] POCT TEST (12/22/2019 11:15 AM HOSPITAL [facility]) Pathologist Sig nature POCT PREG negative On board controls acceptable present with C Line POCT PREG LOT # [id number] POCT PREG TEST DATE 2021-06-11 Specimen Urine - URINE, CLEAN CATCH URINALYSIS (12/22/2019 11:15 AM HOSPITAL [facility]) Pathologist Sig nature APPEARANCE Clear Clear [facility] COLOR Yellow Yellow [facility] PH 6.0 4.8 - 8.0 [facility] SP GRAVITY 1.011 1.003 - 1.030 [facility] GLU U QUAL Normal Normal [facility] BLOOD 1+ (A) Negative [facility] [...] CATCH Performing Organization Address City/State/Zipcode Phone Number [facility] CLIA: [id number] [place] [address] [place] [address] CBC WITH DIFF (12/22/2019 11:15 AM HOSPITAL [facility]) Pathologist Sig nature WBC 6.88 4.30 - [...] VENOUS Performing Organization Address City/State/Zipcode Phone Number [facility] CLIA: [id number] [place] [address] [place] [address] DRUG PANEL 2 URINE (12/22/2019 11:15 AM HOSPITAL [facility]) Pathologist Sig nature AMPHET Negative Negative [facility] EMILIANA U Negative Negative [facility] BENZO U Negative Negative [facility] Cocaine Metabolite Negative Negative [facility]IC ES METHADONE Negative Negative [facility] OPIATES Negative Negative [facility] PCP Negative Negative [facility] THC Negative Negative [facility] Specimen Urine - URINE, CLEAN CATCH Narrative Performed At Urine Drug Cutoff Ranges [facility] Cocaine: 150 ng/mL Benzodiazepines: 200 ng/mL Methadone: 300 ng/mL Amphetamine: 1,000 ng/mL Opiates: 300 ng/mL Cannabinoids: 50 ng/mL Phencyclidine: 25 ng/mL Barbiturates: 200 ng/mL The results are to be used only for medical (i.e., treatment) purposes. Unconfirmed screening results mus t not be used for non-medical purposes (e.g., employment aram ting, legal testing). Performing Organization Address City/[facility] Phone Number [facility] CLIA: [id number] [place] [address] [address] [facility] ETHANOL (12/22/2019 11:15 AM HOSPITAL [facility]) Pathologist Sig nature ALCOHOL <10 mg/dL [facility] Specimen Blood - VENOUS Narrative Performed At Toxic Greater than or equal to 80 mg/dL. [facility] NOTE: Whole blood values are approximately 10% to 15% lower than serum and plasma. Performing Organization Address [facility] Phone Number [facility] CLIA: [id number] [place] [address] [place] [address] SALICYLATE (12/22/2019 11:15 AM HOSPITAL [facility]) Pathologist Sig nature SALICYLATE <10 mg/L [facility] Specimen Blood - VENOUS Narrative Performed At Therapeutic Range: [facility] Analgesic and Antipyretic Use 20-100 mg/L Anti-Inflammatory Use 1 00-250 mg/L Toxic Range: Greater than 300 mg/L Performing Organization Address [facility] Phone Number [facility] CLIA: [id number] [place] [address] [place] [address] ACETAMINOPHEN (12/22/2019 11:15 AM HOSPITAL [facility]) Pathologist Sig nature ACETAMINOP <10.0 (L) 10.0 - 30.0 ug/mL [facility] S Specimen Blood - VENOUS Narrative Performed At Toxic: Greater than 200 ug/mL @ 4 hour post ingestion or [facility] greater than 50 ug/mL @ 12 hour post ingestion Performing Organization Address [facility] Phone Number [facility] CLIA: [id number] [place] [address] [address] [facility] COMP. METABOLIC PANEL (17416) (12/22/2019 11:15 AM HOSPITAL [facility]) Pathologist Sig nature NA 137 135 - 145 mmol/L [facility] K 4.3 3.5 - 5.0 mmol/L [facility] CL 103 98 - 108 mmol/L [facility] CO2 TOTAL 27 23 - 31 mmol/L [facility] AGAP 7 2 - 16 [facility] BUN 10 7 - 23 mg/dL [facility] GLUCOSE 92 70 - 110 mg/dL [facility] CREATININE 0.60 0.50 - 1.04 [facility] mg/dL SERVICES TOTAL BILI 0.4 0.1 - 1.1 mg/dL [facility] CALCIUM 9.4 8.6 - 10.6 mg/dL [facility] T PROTEIN 7.0 6.3 - 8.2 g/dL [facility] ALBUMIN 4.0 3.5 - 5.0 g/dL [facility] ALK PHOS 114 34 - 122 U/L [facility] ALTv 27 5 - 35 U/L [facility] AST(SGOT) 26 13 - 40 U/L [facility] eGFR Calculation 109.6 mL/min/1.73m2 [facility] (Non-) SERVICES eGFR Calculation 132.9 mL/min/1.73m2 [facility] () SERVICES Specimen Blood - VENOUS Narrative Performed At Association of Glomerular Filtration Rate (GFR) and St aging [facility] of Kidney Disease* [...] . Performing Organization Address City/State/Zipcode Phone Number [facility] CLIA: [id number] [place] [address] [place] [address] PATIENT LEAVING AGAINST MEDICAL ADVICE (12/22/2019 12:01 AM HOSPITAL [facility]ER) Specimen Performing Organization Address City/State/Zipcode Phone Number [facility] EMERGENCY SERVICES AGREEMENTS AND AUTHORIZATIONS (12/22/2019 12:01 AM HOSPITAL CLE[facility]ER) Specimen Performing Organization Address City/[facility]/Zipcode Phone Number [facility] EMERGENCY DEPARTMENT DOCUMENTS (12/22/2019 12:01 AM HOSPITAL CLE[facility]ER) Specimen Performing Organization Address City/[facility]/Zipcode Phone Number [facility] from Last 3 Months
--- OUTSIDE RECORDS SUMMARY | 2020-02-26 12:32 | XMS REPORT | Clinical Summary ---
:1975 Author Organization [facility] Address [address] [place] [id number] Care Team Providers Name Role Phone Pcp, [...] 01/16/2020 Travel 12/30/2019 Orders Only Doctor Unassigned, [place] 12/22/2019 Emergency Emergency Medicine Patti Rose, Suic idal ideation [employer] (Primary Dx) Olivia Nelson MD 12/22/2019 Travel 12/19/2019 Travel from Last 3 Months Social History Tobacco Use Types Packs/Day Years Used Date Never Smoker Smokeless Tobacco: Never Used Sex Assigned at Date Recorded Not on file COVID-19 Exposure Response Date Recorded In the last month, have you been in contact with No / Unsure 01/19/2020 7:54 AM [employer] someone who was confirmed or suspected to have Coronavirus / COVID-19? Last Filed Vital Signs Vital Sign Reading Time Taken Comments Blood Pressure 129/75 01/19/2020 8:12 AM [employer] Pulse 62 01/19/2020 8:12 AM [employer] Temperature 36.4 C (97.5 F) 12/22/2019 4:54 PM [employer] Respiratory Rate 18 01/19/2020 8:12 AM [employer] Oxygen Saturation 97% 12/22/2019 6:52 PM [employer] Inhaled Oxygen Concentration - - Weight 97.1 kg (214 lb) 01/19/2020 8:12 AM [employer] Height 157.5 cm (5' 2") 01/19/2020 8:12 AM [employer] Body Mass Index 39.14 01/19/2020 8:12 AM [employer] Plan of Treatment Health Maintenance Due Date [...] EXTERNAL PROVIDER Routine 12/30/2019 12:01 RECORDS AM [employer] LAB ONLY COVID STAT 12/22/2019 12:45 Suicidal ideation Resu lts for this INTERPRETATION PM [employer] procedure are in the results section. COVID-19 (ID NOW RAPID STAT 12/22/2019 12:45 Suicidal ideat ion Results for this TESTING) PM [employer] procedure are i n the results section. ETHANOL STAT Add-On 12/22/2019 11:15 Suicidal ideation Result s for this AM [employer] procedure are i n the results section. GALV/CLC ONLY - URINE STAT 12/22/2019 11:15 Suicidal ideati on Results for this DRUG (IMMUNOASSAY) - AM [employer] procedu re are in COMPREHENSIVE DRUG the resul ts SCREEN section. POCT TEST SKYLAR 12/22/2019 11:15 Suicidal ideation Results for this AM [employer] procedure are i n the results section. URINALYSIS STAT 12/22/2019 11:15 Suicidal ideation Result s for this AM [employer] procedure are i n the results section. ACETAMINOPHEN STAT 12/22/2019 11:15 Suicidal ideation Resul ts for this AM [employer] procedure are i n the results section. SALICYLATE STAT 12/22/2019 11:15 Suicidal ideation Result s for this AM [employer] procedure are i n the results section. COMP. METABOLIC PANEL STAT 12/22/2019 11:15 Suicidal ideati on Results for this (51475) AM [employer] procedure are i n the results section. CBC WITH DIFF STAT 12/22/2019 11:15 Suicidal ideation Resul ts for this AM [employer] procedure are i n the results section. EMERGENCY DEPARTMENT Routine 12/22/2019 12:01 DOCUMENTS AM [employer] EMERGENCY SERVICES Routine 12/22/2019 12:01 AGREEMENTS AND AM [employer] AUTHORIZATIONS PATIENT LEAVING Routine 12/22/2019 12:01 AGAINST MEDICAL ADVICE AM [employer] from Last 3 Months Results EXTERNAL PROVIDER RECORDS (12/30/2019 12:01 AM [employer]) Specimen Performing Organization Address City/State/Zipcode Phone Number HIM LAB ONLY COVID INTERPRETATION (12/22/2019 12:45 PM [employer]) COVID DMT Interpretation/Recommendations: [facility] Interpretation SERVICES Molecular [...] based upon aggregate data pooled from the [facility] medical record including both current and prior COVID-19 related testing results for the following tests offered at our institution: A. Tests for the Identification of SARS-CoV-2 RNA: SARS-CoV-2 PCR assays includ ing [employer] Aptima, [employer] Fusion, Daley RealTime, and Nex[employer] Xpert Xpress. SARS-CoV-2 Rapid ID NOW by the ID NOW assay. B. Tests for the Identification of SARS-CoV-2 Antibodi es: Chemiluminescent immunoassay s including Access SARS-CoV-2 IgM (DXI 600), [employer] Vcjz-LIHB-ReL-2 IgG (Vitros 5600 and Vitros 3600), and Daley SARS-CoV-2 IgG (YARD SPECIALIST I System). These interpretation comment s assume that only the above testing was utilized and that the approved acceptable specimen type(s) were used for a given test. These interpretations are au topopulated into [employer]adi based on computerized algorithms matching an interpretation code number to the patient's set of test results. While a clinical pathologist evaluates the combinations for clinical a ccuracy, clinical correlation is recommended as it may not take into account very remote prior testing. Furthermore, it does not consider testing a patient may have had outside of the [facility] system. Additionally, it should be n oted that the computerized algorithm treats the results for PCR testing and Rapid ID NOW testing (also PCR) synonymously, and thus, refers to both testing methodologies as PC R tests. Given that the sens itivity of [facility]'s Rapid ID NOW testing [...] Results SARS-CoV-2 Rapid ID NOW (no units) [facility] Date Value SERVICES 12/22/2019 Not Detected Specimen Swab - NASOPHARYNGEAL SWAB Performing Organization Address City/[facility] Phone Number [facility] CLIA: [id number] [place] [address] [place] [address] COVID-19 (ID NOW RAPID TESTING) (12/22/2019 12:45 PM [employer]) SARS-CoV-2 Rapid ID Not Detected Not Detected [facility] NOW SERVICES Specimen Swab - NASOPHARYNGEAL SWAB Narrative Performed At ID NOW COVID-19 Assay is an isothermal nucleic acid [facility] amplification test intended for the qualitative detect ion of nucleic acid from SARS-CoV-2 viral RNA in nasopharynge al (RADIOGRAPHY TECHNICIAN) specimens. It is used under Emergency Use [...] testing if clinically indicated. Performing Organization Address City/[facility]/Zipcode Phone Number [facility] CLIA: [id number] [place] [address] [place] [address] POCT TEST (12/22/2019 11:15 AM [employer]) Pathologist Sig nature POCT PREG negative On board controls acceptable present with C Line POCT PREG LOT # [id number] POCT PREG TEST DATE 2021-06-11 Specimen Urine - URINE, CLEAN CATCH URINALYSIS (12/22/2019 11:15 AM [employer]) Pathologist Sig nature APPEARANCE Clear Clear [facility] COLOR Yellow Yellow [facility] PH 6.0 4.8 - 8.0 [facility] SP GRAVITY 1.011 1.003 - 1.030 [facility] GLU U QUAL Normal Normal [facility] BLOOD 1+ (A) Negative [facility] [...] CATCH Performing Organization Address City/State/Zipcode Phone Number [facility] CLIA: [id number] [place] [address] [place] [address] CBC WITH DIFF (12/22/2019 11:15 AM [employer]) Pathologist Sig nature WBC 6.88 4.30 - [...] VENOUS Performing Organization Address City/State/Zipcode Phone Number [facility] CLIA: [id number] [place] [address] [place] [address] DRUG PANEL 2 URINE (12/22/2019 11:15 AM [employer]) Pathologist Sig nature AMPHET Negative Negative [facility] EMILIANA U Negative Negative [facility] BENZO U Negative Negative [facility] Cocaine Metabolite Negative Negative [facility] SERVIC ES METHADONE Negative Negative [facility] OPIATES Negative Negative [facility] PCP Negative Negative [facility] THC Negative Negative [facility] Specimen Urine - URINE, CLEAN CATCH Narrative Performed At Urine Drug Cutoff Ranges [facility] Cocaine: 150 ng/mL Benzodiazepines: 200 ng/mL Methadone: 300 ng/mL Amphetamine: 1,000 ng/mL Opiates: 300 ng/mL Cannabinoids: 50 ng/mL Phencyclidine: 25 ng/mL Barbiturates: 200 ng/mL The results are to be used only for medical (i.e., treatment) purposes. Unconfirmed screening results mus t not be used for non-medical purposes (e.g., employment aram ting, legal testing). Performing Organization Address City/[facility] Phone Number [facility] CLIA: [id number] [place] [address] [address] [facility] ETHANOL (12/22/2019 11:15 AM [employer]) Pathologist Sig nature ALCOHOL <10 mg/dL [facility] Specimen Blood - VENOUS Narrative Performed At Toxic Greater than or equal to 80 mg/dL. [facility] NOTE: Whole blood values are approximately 10% to 15% lower than serum and plasma. Performing Organization Address [facility] Phone Number [facility] CLIA: [id number] [place] [address] [place] [address] SALICYLATE (12/22/2019 11:15 AM [employer]) Pathologist Sig nature SALICYLATE <10 mg/L [facility] Specimen Blood - VENOUS Narrative Performed At Therapeutic Range: [facility] Analgesic and Antipyretic Use 20-100 mg/L Anti-Inflammatory Use 1 00-250 mg/L Toxic Range: Greater than 300 mg/L Performing Organization Address [facility] Phone Number [facility] CLIA: [id number] [place] [address] [place] [address] ACETAMINOPHEN (12/22/2019 11:15 AM [employer]) Pathologist Sig nature ACETAMINOP <10.0 (L) 10.0 - 30.0 ug/mL [facility] S Specimen Blood - VENOUS Narrative Performed At Toxic: Greater than 200 ug/mL @ 4 hour post ingestion or [facility] greater than 50 ug/mL @ 12 hour post ingestion Performing Organization Address [facility] Phone Number [facility] CLIA: [id number] [place] [address] [address] [facility] COMP. METABOLIC PANEL (03252) (12/22/2019 11:15 AM [employer]) Pathologist Sig nature NA 137 135 - 145 mmol/L [facility] K 4.3 3.5 - 5.0 mmol/L [facility] CL 103 98 - 108 mmol/L [facility] CO2 TOTAL 27 23 - 31 mmol/L [facility] AGAP 7 2 - 16 [facility] BUN 10 7 - 23 mg/dL [facility] GLUCOSE 92 70 - 110 mg/dL [facility] CREATININE 0.60 0.50 - 1.04 [facility] mg/dL SERVICES TOTAL BILI 0.4 0.1 - 1.1 mg/dL [facility] CALCIUM 9.4 8.6 - 10.6 mg/dL [facility] T PROTEIN 7.0 6.3 - 8.2 g/dL [facility] ALBUMIN 4.0 3.5 - 5.0 g/dL [facility] ALK PHOS 114 34 - 122 U/L [facility] ALTv 27 5 - 35 U/L [facility] AST(SGOT) 26 13 - 40 U/L [facility] eGFR Calculation 109.6 mL/min/1.73m2 [facility] (Non-) SERVICES eGFR Calculation 132.9 mL/min/1.73m2 [facility] () SERVICES Specimen Blood - VENOUS Narrative Performed At Association of Glomerular Filtration Rate (GFR) and St aging [facility] of Kidney [...] . Performing Organization Address City/State/Zipcode Phone Number [facility] CLIA: [id number] [place] [address] [place] [address] PATIENT LEAVING AGAINST MEDICAL ADVICE (12/22/2019 12:01 AM [employer]) Specimen Performing Organization Address City/State/Zipcode Phone Number [facility] EMERGENCY SERVICES AGREEMENTS AND AUTHORIZATIONS (12/22/2019 12:01 AM [employer]) Specimen Performing Organization Address City/[facility]/Zipcode Phone Number [facility] EMERGENCY DEPARTMENT DOCUMENTS (12/22/2019 12:01 AM [employer]) Specimen Performing Organization Address City/[facility]/Zipcode Phone Number [facility] from Last 3 Months
--- OUTSIDE RECORDS SUMMARY | 2020-02-26 12:32 | XMS REPORT | Summary of Care ---
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 [facility] Self, MD [place] [address] [place] [address] Bipolar 1 disorder, [facility] Pcp-Lab mixed LAB Primary Care [address] [phone] Allergies Active Allergy Reactions Severity Noted Date Comments Sulfa (Sulfonamide Antibiotics) Hives 9 documented as of this encounter (statuses as of 01/27/2020) Medications Medication Sig Dispensed Refills Start Date [...] as of this encounter (statuses as of 01/27/2020) Active Problems No known active problemsdocumented as of this encounter (statuses as of 01/27/2020) Social History Tobacco Use Types Packs/Day Years Used Date Never Smoker Smokeless Tobacco: Never Used Sex Assigned at Date Recorded Not on file COVID-19 Exposure Response Date Recorded In the last month, have you been in contact with No / Unsure 01/19/2020 7:54 AM EVALUATOR someone who was confirmed or suspected to have Coronavirus / COVID-19? documented as of this encounter Last Filed Vital Signs Not on filedocumented in this encounter Nursing Notes Kim Lomas - 01/27/2020 11:45 AM CST Venipuncture collection performed by clean technique on the right anticubitus. Total of 1 attempts were made. Slight pressure and a bandage/dressing were applied to the site(s). The patient experiencedno complications. The following specimens were processed according to instructions and sent to [facility] laboratories per lab order on : LT BLUE SST 1 RED LAV PPT DK GREEN (LiHep) DK GREEN (SodH) SUE DK BLUE (K2) DK BLUE (S) ACD Blood Culture NIPT/NTD UATOR documented in this encounter Plan of Treatment Date Type Specialty Care Team Description 02/16/2020 Office Visit Psychiatry Barry Dan M D [address] [place] [address] [address] [place] [address] [phone] Name Type Priority Associated Diagnoses Date/Ti me LITHIUM LAB Routine Bipolar 1 disorder, mixed 9:37 AM EVALUATOR Health Maintenance Due Date Last Done Comments DTaP,Tdap,and Td Vaccines (1 1996 - Tdap) PAP SMEAR 1998 Breast Cancer Screening 2017 (MAMMOGRAM) INFLUENZA VACCINE (#1) 2019 Depression Screening 01/18/2021 01/19/2020, 01/19/2020 PNEUMOCOCCAL 0-64 YEARS Aged Out No longe r eligible based COMBINED SERIES on patient's age to complete this to pic documented as of this encounter Results Not on filedocumented in this encounter Visit Diagnoses Diagnosis Bipolar 1 disorder, mixed Bipolar I disorder, most recent episode (or current) mixed, unspecified documented in this encounter
--- OUTSIDE RECORDS SUMMARY | 2020-02-26 12:33 | XMS REPORT | Clinical Summary ---
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, [place] Bipolar 1 disorder, mixed Pcp-Lab 01/19/2020 Travel 01/16/2020 Travel 12/30/2019 Orders Only Doctor Unassigned, [place] 12/22/2019 Emergency Emergency Medicine Patti Rose, Jhoana idal ideation THERAPEUTIC SUPPORT STAFF (Primary Dx) Olivia Nelson MD 12/22/2019 Travel 12/19/2019 Travel from Last 3 Months Social History Tobacco Use Types Packs/Day Years Used Date Never Smoker Smokeless Tobacco: Never Used Sex Assigned at Date Recorded Not on file COVID-19 Exposure Response Date Recorded In the last month, have you been in contact with No / Unsure 01/19/2020 7:54 AM CHOP SAW OPERATOR someone who was confirmed or suspected to have Coronavirus / COVID-19? Last Filed Vital Signs Vital Sign Reading Time Taken Comments Blood Pressure 129/75 01/19/2020 8:12 AM CHOP SAW OPERATOR Pulse 62 01/19/2020 8:12 AM CHOP SAW OPERATOR Temperature 36.4 C (97.5 F) 12/22/2019 4:54 PM CHOP SAW OPERATOR Respiratory Rate 18 01/19/2020 8:12 AM CHOP SAW OPERATOR Oxygen Saturation 97% 12/22/2019 6:52 PM CHOP SAW OPERATOR Inhaled Oxygen Concentration - - Weight 97.1 kg (214 lb) 01/19/2020 8:12 AM CHOP SAW OPERATOR Height 157.5 cm (5' 2") 01/19/2020 8:12 AM CHOP SAW OPERATOR Body Mass Index 39.14 01/19/2020 8:12 AM CHOP SAW OPERATOR Plan of Treatment Date Type Specialty Care Team Description 05/25/2020 Office Visit Cardiology Ruperto Boone MD [address] [place] [address]. [place], [place] [address] Health Maintenance Due Date Last Done Comments DTaP,Tdap,and Td Vaccines (1 1996 - Tdap) PAP SMEAR 1998 Breast Cancer Screening 2017 (MAMMOGRAM) INFLUENZA VACCINE (#1) 2019 Depression Screening 01/18/2021 01/19/2020, 01/19/2020 PNEUMOCOCCAL 0-64 YEARS Aged Out No longe r eligible based COMBINED SERIES on patient's age to complete this to pic Procedures Procedure Name Priority Date/Time Associated Comments Diagnosis LITHIUM Routine 01/27/2020 9:37 Bipolar 1 Results for this AM CHOP SAW OPERATOR disorder, mixed procedure ar e in the results section. EXTERNAL PROVIDER Routine 12/30/2019 12:01 RECORDS AM CHOP SAW OPERATOR LAB ONLY COVID STAT 12/22/2019 12:45 Suicidal ideation Resu lts for this INTERPRETATION PM CHOP SAW OPERATOR procedure are in the results section. COVID-19 (ID NOW RAPID STAT 12/22/2019 12:45 Suicidal ideat ion Results for this TESTING) PM CHOP SAW OPERATOR procedure are i n the results section. ETHANOL STAT Add-On 12/22/2019 11:15 Suicidal ideation Result s for this AM CHOP SAW OPERATOR procedure are i n the results section. GALV/CLC ONLY - URINE STAT 12/22/2019 11:15 Suicidal ideati on Results for this DRUG (IMMUNOASSAY) - AM CHOP SAW OPERATOR procedu re are in COMPREHENSIVE DRUG the resul ts SCREEN section. POCT TEST SKYLAR 12/22/2019 11:15 Suicidal ideation Results for this AM CHOP SAW OPERATOR procedure are i n the results section. URINALYSIS STAT 12/22/2019 11:15 Suicidal ideation Result s for this AM CHOP SAW OPERATOR procedure are i n the results section. ACETAMINOPHEN STAT 12/22/2019 11:15 Suicidal ideation Resul ts for this AM CHOP SAW OPERATOR procedure are i n the results section. SALICYLATE STAT 12/22/2019 11:15 Suicidal ideation Result s for this AM CHOP SAW OPERATOR procedure are i n the results section. COMP. METABOLIC PANEL STAT 12/22/2019 11:15 Suicidal ideati on Results for this (66787) AM CHOP SAW OPERATOR procedure are i n the results section. CBC WITH DIFF STAT 12/22/2019 11:15 Suicidal ideation Resul ts for this AM CHOP SAW OPERATOR procedure are i n the results section. EMERGENCY DEPARTMENT Routine 12/22/2019 12:01 DOCUMENTS AM CHOP SAW OPERATOR EMERGENCY SERVICES Routine 12/22/2019 12:01 AGREEMENTS AND AM CHOP SAW OPERATOR AUTHORIZATIONS PATIENT LEAVING Routine 12/22/2019 12:01 AGAINST MEDICAL ADVICE AM CHOP SAW OPERATOR from Last 3 Months Results LITHIUM (01/27/2020 9:37 AM CHOP SAW OPERATOR) Pathologist Sig nature [place] 0.8 0.6 - 1.2 mmol/L [facility] SERVICES Specimen Blood Narrative Performed At Toxic Range: Greater than 1.2 mmol/L [facility] SERVICES Performing Organization Address City/State/Zipcode Phone Number [facility] CLIA: [id number] [place] [address] [place] [address] EXTERNAL PROVIDER RECORDS (12/30/2019 12:01 AM CHOP SAW OPERATOR) Specimen Performing Organization Address City/State/Zipcode Phone Number [facility] LAB ONLY COVID INTERPRETATION (12/22/2019 12:45 PM CHOP SAW OPERATOR) [facility] COVID DMT Interpretation/Recommendations: [facility] LABO RATSELECT [facility]ICAL [facility] Interpretation SERVICES Molecular NAAT Test Results for [...] based upon aggregate data pooled from the [facility] EPIC medical record including both current and prior COVID-19 related testing results for the following tests offered at our institution: A. Tests for the Identification of SARS-CoV-2 RNA: SARS-CoV-2 PCR assays includ ing CitizenShipper Aptima, CitizenShipper Fusion, Daley RealTime, and Adaptive Planning Xpert Xpress. SARS-CoV-2 Rapid ID NOW by the ID NOW assay. B. Tests for the Identification of SARS-CoV-2 Antibodi es: Chemiluminescent immunoassay s including Access SARS-CoV-2 IgM (DXI 600), VITROS Kptb-OEAU-VeI-2 IgG (Vitros 5600 and Vitros 3600), and Daley SARS-CoV-2 IgG (BLACKSMITH HELPER I System). These interpretation comment s assume that only the above testing was utilized and that the approved acceptable specimen type(s) were used for a given test. These interpretations are au topopulated into [facility] based on computerized algorithms matching an interpretation code number to the patient's set of test results. While a clinical pathologist evaluates the combinations for clinical a ccuracy, clinical correlation is recommended as it may not take into account very remote prior testing. Furthermore, it does not consider testing a patient may have had outside of the [facility] system. Additionally, it should be n oted that the computerized algorithm treats the results for PCR testing and Rapid ID NOW testing (also PCR) synonymously, and thus, refers to both testing methodologies as PC R tests. Given that the sens itivity of [facility]'s Rapid ID NOW testing platform [...] Results SARS-CoV-2 Rapid ID NOW (no units) [facility] LABORATORY Date Value SERVICES 12/22/2019 Not Detected Specimen Swab - NASOPHARYNGEAL SWAB Performing Organization Address City/State/Zipcode Phone Number [facility] SERVICES CLIA: [id number] [place], [place] [id number] [address] [place] [address] COVID-19 (ID NOW RAPID TESTING) (12/22/2019 12:45 PM CHOP SAW OPERATOR) SARS-CoV-2 Rapid ID Not Detected Not Detected [facility] LABORATORY NOW SERVICES Specimen Swab - NASOPHARYNGEAL SWAB Narrative Performed At ID NOW COVID-19 Assay is an isothermal nucleic acid [facility] SERVICES amplification test intended for the qualitative detect ion of nucleic acid from SARS-CoV-2 viral RNA in nasopharynge al (DIAMOND WHEEL MOLDER) specimens. It is used under Emergency Use [...] testing if clinically indicated. Performing Organization Address City/State/[facility] Phone Number [facility] CLIA: [id number] [place] [address] [place] [address] POCT TEST (12/22/2019 11:15 AM CHOP SAW OPERATOR) Pathologist Sig nature POCT PREG negative On board controls acceptable present with C Line POCT PREG LOT # [id number] POCT PREG TEST DATE 2021-06-11 Specimen Urine - URINE, CLEAN CATCH URINALYSIS (12/22/2019 11:15 AM CHOP SAW OPERATOR) Pathologist Sig nature APPEARANCE Clear Clear [facility] COLOR Yellow Yellow [facility] PH 6.0 4.8 - 8.[address] [facility] SP GRAVITY 1.011 1.003 - 1.[address] [facility] GLU U QUAL Normal Normal [facility] BLOOD 1+ (A) Negative [facility] KETONES Negative Negative [facility] PROTEIN Negative Negative [facility] UROBILIN Normal Normal [facility] BILIRUBIN Negative Negative [facility] NITRITE Negative Negative [facility] LEUK VISHAL Negative Negative [facility] RBC/HPF 3 0 - 3 HPF [facility] WBC/HPF 1 0 - 5 HPF [facility] BACTERIA Few (A) Negative [facility] SQ EPITH <1 <=2 HPF [facility] Specimen Urine - URINE, CLEAN CATCH Performing Organization Address City/State/Zipcode Phone Number [facility] CLIA: [id number] [place] [address] [place] [address] CBC WITH DIFF (12/22/2019 11:15 AM CHOP SAW OPERATOR) [facility] WBC 6.88 4.30 - 11.10 [facility]ORY [...] Specimen Blood - VENOUS Performing Organization Address [facility] Phone Number [facility] CLIA: [id number] [place] [address] [place] [address] DRUG PANEL 2 URINE (12/22/2019 11:15 AM CHOP SAW OPERATOR) Pathologist Sig nature AMPHET Negative Negative [facility] EMILIANA U Negative Negative [facility] BENZO U Negative Negative [facility] Cocaine Metabolite Negative Negative [facility] SERVIC ES METHADONE Negative Negative [facility] OPIATES Negative Negative [facility] PCP Negative Negative [facility] THC Negative Negative [facility] Specimen Urine - URINE, CLEAN CATCH Narrative Performed At Urine Drug Cutoff Ranges [facility] Cocaine: 150 ng/mL Benzodiazepines: 200 ng/mL Methadone: 300 ng/mL Amphetamine: 1,000 ng/mL Opiates: 300 ng/mL Cannabinoids: 50 ng/mL Phencyclidine: 25 ng/mL Barbiturates: 200 ng/mL The results are to be used only for medical (i.e., treatment) purposes. Unconfirmed screening results mus t not be used for non-medical purposes (e.g., employment aram ting, legal testing). Performing Organization Address [facility] Phone Number [facility] CLIA: [id number] [place] [address] [place] [address] ETHANOL (12/22/2019 11:15 AM CHOP SAW OPERATOR) Pathologist Sig nature ALCOHOL <10 mg/dL [facility] Specimen Blood - VENOUS Narrative Performed At Toxic Greater than or equal to 80 mg/dL. [facility] NOTE: Whole blood values are approximately 10% to 15% lower than serum and plasma. Performing Organization Address City/[facility] Phone Number [facility] CLIA: [id number] [place] [address] [place] [address] SALICYLATE (12/22/2019 11:15 AM CHOP SAW OPERATOR) Pathologist Sig nature SALICYLATE <10 mg/L [facility] Specimen Blood - VENOUS Narrative Performed At Therapeutic Range: [facility] Analgesic and Antipyretic Use 20-100 mg/L Anti-Inflammatory Use 1 00-250 mg/L Toxic Range: Greater than 300 mg/L Performing Organization Address City/State/Zipcode Phone Number [facility] CLIA: [id number] [place] [address] [place] [address] ACETAMINOPHEN (12/22/2019 11:15 AM CHOP SAW OPERATOR) Pathologist Sig nature ACETAMINOP <10.0 (L) 10.0 - 30.0 ug/mL [facility]ICE S Specimen Blood - VENOUS Narrative Performed At Toxic: Greater than 200 ug/mL @ 4 hour post ingestion or [facility] greater than 50 ug/mL @ 12 hour post ingestion Performing Organization Address City/State/Zipcode Phone Number [facility] CLIA: [id number] [place] [address] [place] [address] COMP. METABOLIC PANEL (88980) (12/22/2019 11:15 AM CHOP SAW OPERATOR) Pathologist Sig nature NA 137 135 - 145 mmol/L [facility] K 4.3 3.5 - 5.0 mmol/L [facility] CL 103 98 - 108 mmol/L [facility] CO2 TOTAL 27 23 - 31 mmol/L [facility] AGAP 7 2 - [address] [facility] BUN 10 7 - 23 mg/dL [facility] GLUCOSE 92 70 - 110 mg/dL [facility] CREATININE 0.60 0.50 - 1.[address] [facility] mg/dL SERVICES TOTAL BILI 0.4 0.1 - 1.1 mg/dL [facility] CALCIUM 9.4 8.6 - 10.6 mg/dL [facility] T PROTEIN 7.0 6.3 - 8.2 g/dL [facility] ALBUMIN 4.0 3.5 - 5.0 g/dL [facility] ALK PHOS 114 34 - 122 U/L [facility] ALTv 27 5 - 35 U/L [facility] AST(SGOT) 26 13 - 40 U/L [facility] eGFR Calculation 109.6 mL/min/1.73m2 [facility] (Non-) SERVICES eGFR Calculation 132.9 mL/min/1.73m2 [facility] () SERVICES Specimen Blood - VENOUS Narrative Performed At Association of Glomerular Filtration Rate (GFR) and St aging [facility] SERVICES of Kidney Disease* [...] . Performing Organization Address City/State/Zipcode Phone Number [facility] CLIA: [id number] [place] [address] [place] [address] PATIENT LEAVING AGAINST MEDICAL ADVICE (12/22/2019 12:01 AM CHOP SAW OPERATOR) Specimen Performing Organization Address City/State/Zipcode Phone Number [facility] EMERGENCY SERVICES AGREEMENTS AND AUTHORIZATIONS (12/22/2019 12:01 AM CHOP SAW OPERATOR) Specimen Performing Organization Address City/State/Zipcode Phone Number [facility] EMERGENCY DEPARTMENT DOCUMENTS (12/22/2019 12:01 AM CHOP SAW OPERATOR) Specimen Performing Organization Address City/State/Zipcode Phone Number [facility] from Last 3 Months
[2020-02-26 13:08] LABS: Absolute Lymphocytes (CBC) 1.6 K/uL (0.7-4.9); Basophils % 0.8 % (0-1.3); Hematocrit 34.4 % (36.0-45.0); Lymphocytes % 19.7 % (15.3-44.8); MPV 9.9 fL (7.6-11.3); RBC Red Blood Cell Count 4.15 M/uL (3.86-4.86)
[2020-02-26 13:29] LABS: ALT/SGPT 25 U/L (12-78); AST/SGOT 13 U/L (15-37); Albumin 3.6 g/dL (3.4-5.0); Alkaline Phosphatase 119 U/L (45-117); BUN Blood Urea Nitrogen 10 mg/dL (7-18); Bicarbonate 27 mmol/L (21-32); Bilirubin Direct < 0.1 mg/dL (0-0.2); Bilirubin Total 0.3 mg/dL (0.2-1.0); Glucose Level 98 mg/dL (74-106); Lipase 117 U/L (73-393); Potassium 4.2 mmol/L (3.5-5.1); Protein, Total 7.2 g/dL (6.4-8.2); Sodium Level 139 mmol/L (136-145)
--- NOTE | 2020-02-26 14:53 | RAD REPORT ---
EXAM DESCRIPTION: CT - Chest Abdomen Pelvis W Cont - 02/26/2020 2:28 pm CLINICAL HISTORY: Chest and abdominal pain COMPARISON: 2018 2019 TECHNIQUE: Computed axial tomography of the chest, abdomen and pelvis was obtained. 100 cc Isovue-30 0 was administered intravenously. Oral contrast was not given which limits evaluation of bowel All CT scans are performed using dose optimization technique as appropriate and may include automated exposure control or mA/KV adjustment according to patient size. FINDINGS: The lungs are clear. No mediastinal or hilar lymphadenopathy A pleural effusion is not seen. A pericardial effusion is not noted. Fatty liver. Cholecystectomy The spleen, pancreas, adrenals and kidneys unremarkable Normal appendix. There is no evidence of diverticulitis. Moderate amount stool within the colon IMPRESSION: Fatty liver Moderate amount stool within the colon
[2020-02-26] MEDS ORDERED: MORPHINE 4 MG/ML SYR ONE (15:10)
[2020-02-26] MEDS ORDERED: ONDANSETRON 4 MG/2 ML VIAL ONE (15:10)
[2020-02-26] MEDS ORDERED: MAGNES/ALUMIN/SIMET 30ML UCUP ONE (15:45)
[2020-02-26] MEDS ORDERED: LIDOCAINE VISCOUS 2% SOLN 15 ML UDC ONE (15:45)
--- NOTE | 2020-02-26 16:24 | EDPHYS ---
Physician Documentation [facility] Name: Shivani Lagunas Age: 44 yrs Sex: Female : 1975 Arrival Date: 02/26/2020 Time: 12:19 Bed 4 Private MD: Nancy Kc K ED Physician Alexander Kahn HPI: 02/25 12:48 This 44 yrs old Female presents to ER via Ambulatory with complaints of jmm Epigastric Pain. 12:48 The patient presents with abdominal pain in the epigastric area. Onset: The jmm symptoms/episode began/occurred gradually, 2 day(s) ago. The symptoms radiate to right back. Associated signs and symptoms: Pertinent negatives: fever, vomiting. The symptoms are described as achy. This is a 44 year old female with a hisotry of anxiety, depression that presents to the ED with complaints of of epigastric pain which radiates up to her chest and the the right side of her back. Denies fever, vomiting, diarrhea. Patient also complains of discomfort at the base of her throat. Patient states taking antacids without relief.. 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 - Social history:: Smoking status: Reported history of juuling and/or vaping. ROS: 12:48 Constitutional: Negative for fever, chills, and weight loss. jmm 12:48 Respiratory: Negative for shortness of breath, cough, wheezing, and pleuritic chest pain. 12:48 Cardiovascular: Positive for chest pain. 12:48 Abdomen/GI: Positive for abdominal pain. 12:48 Back: Positive for radiated pain. 12:48 All other systems are negative. Exam: 12:48 Constitutional: This is a well developed, well nourished patient who is awake, alert, jmm and in no acute distress. Head/Face: atraumatic. Eyes: EOMI, no conjunctival erythema appreciated ENT: Moist Mucus Membranes Neck: Trachea midline, Supple Chest/axilla: Normal chest wall appearance and motion. Cardiovascular: Regular rate and rhythm. No edema appreciated Respiratory: Normal respirations, no respiratory distress appreciated 12:48 Back: Normal ROM Skin: General appearance color normal MS/ Extremity: Moves all extremities, no obvious deformities appreciated, no edema noted to the lower extremities Neuro: Awake and alert, normal gait Psych: Behavior is normal, Mood is normal, Patient is cooperative and pleasant 12:48 Abdomen/GI: Inspection: abdomen appears normal, Bowel sounds: normal, Palpation: soft, mild abdominal tenderness, in the right upper quadrant. 15:25 ECG was reviewed by the Attending Physician. [facility] Vital Signs: 12:31 BP 114 / 49; Pulse 71; Resp 16 S; Temp 97.4(TE); Pulse Ox 99% on R/A; Weight 94.35 kg ca1 (R); Height 5 ft. 6 in. (167.64 cm) (R); Pain 9/10; 12:46 BP 114 / 62; Pulse 65; Resp 16; Pulse Ox 97% ; jl7 14:00 BP 111 / 60; Pulse 60; Resp 17; Pulse Ox 99% ; Pain 8/10; rb3 15:37 BP 124 / 53; Pulse 69; Resp 17; Pulse Ox 100% ; Pain 4/10; jl7 12:31 Body Mass Index 33.57 (94.35 kg, 167.64 cm) ca1 MDM: 12:54 Patient medically screened. [facility] 16:21 Data reviewed: vital signs, nurses notes. Counseling: I had a detailed discussion with [facility] the patient and/or guardian regarding: the historical points, exam findings, and any diagnostic results supporting the discharge/admit diagnosis, lab results, radiology results, the need for outpatient follow up, smoking cessation. ED course: Discomfort improved after GI cocktail. CT negative for an acute process. D-Dimer negative. I do not suspect PE. EKG, troponin wnl, I do not suspect ACS. Patient is advised to follow up with GI for further evaluation. Patient is otherwise given strict return precautions. patient understood and agrees with the plan of care. . 02/25 12:48 Order name: Basic Metabolic Panel [facility] 02/25 12:48 Order name: CBC with Diff [facility] 02/25 12:48 Order name: Hepatic Function [facility] 02/25 12:48 Order name: Lipase; Complete Time: 13:37 [facility] 02/25 12:48 Order name: Basic Metabolic Panel; Complete Time: 13:37 [facility] 02/25 12:48 Order name: CBC with Automated Diff; Complete Time: 13:37 [facility] 02/25 12:48 Order name: IV Saline Lock; Complete Time: 13:03 [facility] 02/25 12:49 Order name: Liver (Hepatic) Function; Complete Time: 13:37 [facility] 02/25 12:54 Order name: D-Dimer; Complete Time: 14:04 [facility] 02/25 14:05 Order name: Troponin (emerg Dept Use Only); Complete Time: 14:51 [facility] 02/25 14:05 Order name: CT Chest, Abdomen, Pelvis - W/Contrast; Complete Time: 15:11 [facility] 02/25 12:48 Order name: Labs collected and sent; Complete Time: 13:03 [facility] 02/25 14:05 Order name: EKG - Nurse/Tech; Complete Time: 15:13 jmm EC:25 Rate is 67 beats/min. Rhythm is regular. QRS Gays is Normal. FL interval is normal. QRS jmm interval is normal. QT interval is normal. No Q waves. T waves are Normal. No ST changes noted. Reviewed by me. Administered Medications: 15:00 Drug: morphine 4 mg Route: IVP; Site: right antecubital; rb3 15:30 Follow up: Response: No adverse reaction; Pain is decreased jl7 15:00 Drug: Zofran (Ondansetron) 4 mg Route: IVP; Site: right antecubital; rb3 15:30 Follow up: Response: No adverse reaction jl7 15:35 Drug: GI Cocktail without - (Maalox Suspension 30 ml, Lidocaine Liquid 2 % 15 jl7 ml) Route: PO; 16:00 Follow up: Response: No adverse reaction; Pain is decreased jl7 Disposition: 02/26 05:51 Co-signature as Attending Physician, Alexander Kahn MD I agree with the assessment and kdr plan of care. Disposition: 02/26/20 16:23 Discharged to Home. Impression: Epigastric pain. - Condition is Stable. - Discharge Instructions: Abdominal Pain, Adult. - Prescriptions for Carafate 1 gram Oral Tablet - take 1 tablet by ORAL route 4 times per day take on an empty stomach, beginning on waking and last dose at bedtime; 100 tablet. - Medication Reconciliation Form, Thank You Letter, Antibiotic Education, Prescription Opioid Use form. - Follow up: Private Physician; When: 2 - 3 days; Reason: Recheck today's complaints, Continuance of care, Re-evaluation by your physician. Signatures: Dispatcher [employer] EDMS Alexander Kahn MD MD kdr Mickail, Joel, PA PA jmm Leal, Jahala RN RN jl7 Kim Tillman RN RN ca1 Fabienne Mcqueen, RN RN rb3 Corrections: (The following items were deleted from the chart) 02/25 13:08 12:48 Urine Test ordered. ruth jl7 16:48 16:23 02/26/2020 16:23 Discharged to Home. Impression: Epigastric pain. Condition is jl7 Stable. Forms are Medication Reconciliation Form, Thank You Letter, Antibiotic Education, Prescription Opioid Use. Follow up: Private Physician; When: 2 - 3 days; Reason: Recheck today's complaints, Continuance of care, Re-evaluation by your physician. ruth
--- NOTE | 2020-02-26 16:24 | ER ---
Nurse's Notes [facility] Name: Shivani Lagunas Age: 44 yrs Sex: Female : 1975 Arrival Date: 02/26/2020 Time: 12:19 Bed 4 Private MD: Nancy Kc K Diagnosis: Epigastric pain Presentation: 02/25 12:31 Chief complaint: Patient states: Epigastric pain, radiating to the RUQ, R mid back x 3 ca1 days. Been taking Protonix, no relief. I feel like a ball is stuck in my throat and epigastric area. Diarrhea x 4 days. Denies fever. Coronavirus screen: Client denies travel out of the [place] in the last 14 days. diarrhea, nausea, Client presents with at least one sign or symptom that may indicate coronavirus-19. Standard/surgical mask placed on the client. Provider contacted for isolation considerations. Ebola Screen: Patient negative for fever greater than or equal to 101.5 degrees Fahrenheit, and additional compatible Ebola Virus Disease symptoms Patient denies exposure to infectious person. Patient denies travel to an Ebola-affected area in the 21 days before illness onset. No symptoms or risks identified at this time. Initial Sepsis Screen: Does the patient meet any 2 criteria? No. Patient's initial sepsis screen is negative. Does the patient have a suspected source of infection? No. Patient's initial sepsis screen is negative. Risk Assessment: Do you want to hurt yourself or someone else? Patient reports no desire to harm self or others. Onset of symptoms was February 26, 2020. 12:31 Method Of Arrival: Ambulatory ca1 12:31 Acuity: ALICIA 3 ca1 STRAND GALVANIZER: 15:37 LMP N/A - control method jl7 Historical: - Allergies: 12:34 Sulfa (Sulfonamide Antibiotics); ca1 - PMHx: 12:34 Anxiety; Arrythmia; Bipolar disorder; depression, anxiety, insomnia; fatty liver; Gout; ca1 High Cholesterol; Hypertension; - PSHx: 12:34 Cholecystectomy; ; ca1 13:09 Tubal ligation; jl7 - Immunization history:: Flu vaccine is not up to date. - Social history:: Smoking status: Reported history of juuling and/or vaping. Screenin:09 Abuse screen: Denies threats or abuse. Denies injuries from another. Nutritional jl7 screening: No deficits noted. Tuberculosis screening: No symptoms or risk factors identified. Fall Risk IV access (20 points). Total Rodriguez Fall Scale indicates No Risk (0-24 pts). Assessment: 13:09 General: Appears in no apparent distress. uncomfortable, Behavior is calm, cooperative, jl7 appropriate for age. Pain: Complains of pain in epigastric area Pain currently is 9 out of 10 on a pain scale. Neuro: Level of Consciousness is awake, alert, obeys commands, Oriented to person, place, time, situation. Cardiovascular: Patient's skin is warm and dry. Respiratory: Airway is patent Respiratory effort is even, unlabored, Respiratory pattern is regular, symmetrical. GI: Abdomen is round non-distended, Reports epigastric pain, nausea. Derm: Skin is pink, warm \\T\\ dry. 14:59 Reassessment: Patient appears in no apparent distress at this time. Patient and/or rb3 family updated on plan of care and expected duration. Pain level reassessed. Patient is alert, oriented x 3, equal unlabored respirations, skin warm/dry/pink. Pain 8/10. 15:36 Reassessment: Patient appears in no apparent distress at this time. Patient and/or jl7 family updated on plan of care and expected duration. Pain level reassessed. Patient is alert, oriented x 3, equal unlabored respirations, skin warm/dry/pink. pain rated 4/10 at this time, pt states "I actually feel a lot better than I did." Medicated as ordered Patient denies pain at this time. Patient states feeling better. Vital Signs: 12:31 BP 114 / 49; Pulse 71; Resp 16 S; Temp 97.4(TE); Pulse Ox 99% on R/A; Weight 94.35 kg ca1 (R); Height 5 ft. 6 in. (167.64 cm) (R); Pain 9/10; 12:46 BP 114 / 62; Pulse 65; Resp 16; Pulse Ox 97% ; jl7 14:00 BP 111 / 60; Pulse 60; Resp 17; Pulse Ox 99% ; Pain 8/10; rb3 15:37 BP 124 / 53; Pulse 69; Resp 17; Pulse Ox 100% ; Pain 4/10; jl7 12:31 Body Mass Index 33.57 (94.35 kg, 167.64 cm) ca1 ED Course: 12:19 Patient arrived in ED. ag5 12:19 Nancy Kc MD is Private Physician. ag5 12:26 Milton Vaughn PA is [facility] 12:26 Alexander Kahn MD is Attending Physician. [facility] 12:33 Triage completed. ca1 12:34 Arm band placed on right wrist. ca1 12:45 Meche Luciano, RN is Primary Nurse. jl7 13:09 Patient has correct armband on for positive identification. Bed in low position. Call jl7 light in reach. Side rails up X 1. Pulse ox on. NIBP on. Warm blanket given. 13:09 Initial lab(s) drawn, by nm, sent to lab. Inserted saline lock: 20 gauge in right jl7 antecubital area, using aseptic technique. Blood collected. 14:28 CT Chest, Abdomen, Pelvis - W/Contrast In Process Unspecified. EDMS 15:01 EKG done, by ED staff, reviewed by Milton TRAN. 3 16:46 No provider procedures requiring assistance completed. IV discontinued, intact, jl7 bleeding controlled, No redness/swelling at site. Pressure dressing applied. Administered Medications: 15:00 Drug: morphine 4 mg Route: IVP; Site: right antecubital; rb3 15:30 Follow up: Response: No adverse reaction; Pain is decreased jl7 15:00 Drug: Zofran (Ondansetron) 4 mg Route: IVP; Site: right antecubital; rb3 15:30 Follow up: Response: No adverse reaction 7 15:35 Drug: GI Cocktail without - (Maalox Suspension 30 ml, Lidocaine Liquid 2 % 15 jl7 ml) Route: PO; 16:00 Follow up: Response: No adverse reaction; Pain is decreased jl Outcome: 16:23 Discharge ordered by . [facility] 16:46 Discharged to home ambulatory. jl7 16:46 Condition: stable 16:46 Discharge instructions given to patient, Instructed on discharge instructions, follow up and referral plans. medication usage, Demonstrated understanding of instructions, follow-up care, medications, Prescriptions given X 1. 16:48 Patient left the ED. jl7 Signatures: Dispatcher [employer] EDMS Milton Vaughn PA PA jmm Leal, Jahala, RN RN jl7 Chey Muñoz dh3 Kim Tillman, RN RN ca1 Dung Clinton ag5 Fabienne Mcqueen, RN RN rb3
[2020-02-26 17:05] VITALS: TEMP 97.4
[2020-02-26 17:09] VITALS: BP 124/53; O2SAT 100
--- NOTE | 2020-02-28 13:32 | EKG ---
Test Date: 2020-02-26 Test Time: 15:01:02 Associate Professor: NADIA MEASUREMENT RESULTS: Intervals: Rate: 67 MS: 162 QRSD: 96 QT: 440 QTc: 464 [place]: P: 51 MS: 162 QRS: 37 T: 27 INTERPRETIVE STATEMENTS: Normal sinus rhythm Normal ECG Compared to ECG 11/20/2019 11:13:19 No significant changes Electronically Signed On 02-28-20 13:28:32 ENGINEERING TECHNICIAN by Lonnie Laurent
== END 2020-02-26 16:48 | disposition home or self-care (01) ==
LOC: ER 12:17
DX: R10.13 Epigastric pain (principal); I10 Essential (primary) hypertension; Z88.2 Allergy status to sulfonamides
CPT/HCPCS: 36415; 71260; 74177; 80048; 80076; 83690; 84484; 85025; 85379; 93005; 96374; 96375; 99284; J2405; Q9967

== ENCOUNTER 2020-02-29 15:12 | Emergency (ER) | payer SELFPAY ==
--- OUTSIDE RECORDS SUMMARY | 2020-02-29 15:13 | XMS REPORT | Continuity of Care Document ---
:1975 Author Organization [facility] t Address [address] [place] [address] Care Team Providers Name Role Phone Unavailable [...] VERY HIGH.........>/ = 190 mg/dL Comments to Ore Mixer: ADD TO AM LABSLIPID PROFILE (CORONARY RISK)2018-07-20 [...] MG/DL 0-99 code = LDL) Comments to Ore Mixer: ADD TO AM LABSPROTHROMBIN [id number] 06:24:00 Test Item Value Reference Range Interpretation [...] karla embolism. 3.0 - 4.5 Comments to Ore Mixer: NURSE WILL BRING SPECIMEN TO LABPTT ACTIVATED 2018-07-20 06:24:00 Test Item Value Reference Range Interpretation Comments PTT ACTIVATED (test code = APTT) 29.3 SECONDS 22.0-33.0 N Comments to Ore Mixer: NURSE WILL BRING SPECIMEN TO LABBASIC METABOLIC [...] 9.6 MG/DL 8.4-10.2 N CA) Comments to Ore Mixer: NURSE WILL BRING SPECIMEN TO LAB Comments to Ore Mixer: NURSE WILL BRING SPECIMEN TO [id number] 06:13:00 Test Item Value Reference Range Interpretation Comments MAGNESIUM (test code = MAG) 2.2 MG/DL 1.6-2.3 N Comments to Ore Mixer: NURSE WILL BRING SPECIMEN TO LAB Comments to Ore Mixer: NURSE WILL BRING SPECIMEN TO LABCBC W/AUTO [id number] 06:02:00 Test Item Value Reference Range Interpretation [...]
[2020-02-29 16:24] LABS: Absolute Lymphocytes (CBC) 0.7 K/uL (0.7-4.9); Basophils % 0.4 % (0-1.3); Hematocrit 39.3 % (36.0-45.0); MPV 9.9 fL (7.6-11.3)
[2020-02-29] MEDS ORDERED: MAGNES/ALUMIN/SIMET 30ML UCUP ONE (16:39)
[2020-02-29] MEDS ORDERED: ONDANSETRON 4 MG/2 ML VIAL ONE (16:39)
[2020-02-29] MEDS ORDERED: NA CHLORIDE 0.9% 1,000 ML ONE (16:40)
[2020-02-29] MEDS ORDERED: LIDOCAINE VISCOUS 2% SOLN 15 ML UDC ONE (16:40)
[2020-02-29 16:45] LABS: ALT/SGPT 27 U/L (12-78); AST/SGOT 17 U/L (15-37); Albumin 3.8 g/dL (3.4-5.0); Alkaline Phosphatase 151 U/L (45-117); BUN Blood Urea Nitrogen 12 mg/dL (7-18); Bicarbonate 24 mmol/L (21-32); Bilirubin Direct 0.1 mg/dL (0-0.2); Bilirubin Total 0.6 mg/dL (0.2-1.0); Glucose Level 97 mg/dL (74-106); Lipase 70 U/L (73-393); Potassium 4.2 mmol/L (3.5-5.1); Protein, Total 8.4 g/dL (6.4-8.2); Sodium Level 140 mmol/L (136-145); Troponin (Emerg Dept Use Only) < 0.02 ng/mL (0.0-0.045)
[2020-02-29 16:55] LABS: Blood Morphology Comment NOTED (NOT SEEN); Burr Cells 1+; Platelet Estimate ADEQ; Platelets, Giant NOTED; White Blood Cell Scan OK (OK)
[2020-02-29 17:20] LABS: SARS-COV-2 RT PCR NEGATIVE (NEGATIVE)
--- NOTE | 2020-02-29 17:24 | EDPHYS ---
Physician Documentation [facility] Name: Shivani Lagunas Age: 44 yrs Sex: Female : 1975 Arrival Date: 02/29/2020 Time: 15:14 Bed 15 Private MD: ED Physician Nataliya Bowling HPI: 02/28 17:21 This 44 yrs old Female presents to ER via Ambulatory with complaints of kb Epigastric Pain, Vomiting/Diarrhea. 17:21 The patient presents with abdominal pain in the epigastric area. Onset: The kb symptoms/episode began/occurred last week. The symptoms do not radiate. Associated signs and symptoms: Pertinent positives: nausea, vomiting, and diarrhea, Pertinent negatives: anorexia, blood in stools, chest pain, constipation, dysuria, fever, headache, hematuria, palpitations, shortness of breath, vaginal discharge, vomiting blood. The symptoms are described as intermittent. Modifying factors: The symptoms are alleviated by nothing, the symptoms are aggravated by nothing. Severity of pain: At its worst the pain was moderate in the emergency department the pain is unchanged. The patient has not experienced similar symptoms in the past. The patient has not recently seen a physician. Historical: - Allergies: 15:22 Sulfa (Sulfonamide Antibiotics); ll1 - PMHx: 15:22 High Cholesterol; Gout; Hypertension; fatty liver; Bipolar disorder; Arrythmia; ll1 Anxiety; depression, anxiety, insomnia; - PSHx: 15:22 Cholecystectomy; ; Tubal ligation; ll1 - Immunization history:: Flu vaccine is not up to date. - Social history:: Smoking status: Reported history of juuling and/or vaping. ROS: 17:20 Cardiovascular: Negative for chest pain, palpitations, and edema, Respiratory: Negative kb for shortness of breath, cough, wheezing, and pleuritic chest pain, Back: Negative for injury and pain, MS/Extremity: Negative for injury and deformity, Skin: Negative for injury, rash, and discoloration, Neuro: Negative for headache, weakness, numbness, tingling, and seizure. 17:20 Abdomen/GI: Positive for abdominal pain, nausea, vomiting, and diarrhea. 17:20 Constitutional: Positive for body aches, chills, malaise. kb Exam: 17:20 Constitutional: This is a well developed, well nourished patient who is awake, alert, kb and in no acute distress. Head/Face: Normocephalic, atraumatic. Chest/axilla: Normal chest wall appearance and motion. Nontender with no deformity. No lesions are appreciated. Cardiovascular: Regular rate and rhythm with a normal S1 and S2. No gallops, murmurs, or rubs. Normal PMI, no JVD. No pulse deficits. Respiratory: Lungs have equal breath sounds bilaterally, clear to auscultation and percussion. No rales, rhonchi or wheezes noted. No increased work of breathing, no retractions or nasal flaring. Abdomen/GI: Soft, non-tender, with normal bowel sounds. No distension or tympany. No guarding or rebound. No evidence of tenderness throughout. Back: No spinal tenderness. No costovertebral tenderness. Full range of motion. Skin: Warm, dry with normal turgor. Normal color with no rashes, no lesions, and no evidence of cellulitis. MS/ Extremity: Pulses equal, no cyanosis. Neurovascular intact. Full, normal range of motion. Neuro: Awake and alert, GCS 15, oriented to person, place, time, and situation. Cranial nerves II-XII grossly intact. Motor strength 5/5 in all extremities. Sensory grossly intact. Cerebellar exam normal. Normal gait. 17:32 ECG was reviewed by the Attending Physician. Vital Signs: 15:19 BP 132 / 61; Pulse 77; Resp 16; Temp 98.2; Pulse Ox 100% ; Weight 94.35 kg; Height 5 ll1 ft. 6 in. (167.64 cm); Pain 8/10; 16:30 BP 127 / 66; Pulse 71; Resp 16; Pulse Ox 98% on R/A; vg1 17:00 BP 127 / 68; Pulse 70; Resp 14; Pulse Ox 100% on R/A; vg1 15:19 Body Mass Index 33.57 (94.35 kg, 167.64 cm) ll1 MDM: 15:56 Patient medically screened. 17:19 Data reviewed: vital signs, nurses notes. Data interpreted: Pulse oximetry: on room air kb is 98 %. Interpretation: normal. Counseling: I had a detailed discussion with the patient and/or guardian regarding: the historical points, exam findings, and any diagnostic results supporting the discharge/admit diagnosis, lab results, radiology results, the need for outpatient follow up, a family practitioner, to return to the emergency department if symptoms worsen or persist or if there are any questions or concerns that arise at home. 02/28 15:59 Order name: Basic Metabolic Panel; Complete Time: 16:46 kb 02/28 15:59 Order name: CBC with Diff; Complete Time: 17:10 kb 02/28 15:59 Order name: Hepatic Function; Complete Time: 16:46 kb 02/28 15:59 Order name: Lipase; Complete Time: 16:46 kb 02/28 15:59 Order name: Troponin (emerg Dept Use Only); Complete Time: 16:46 kb 02/28 15:59 Order name: EKG; Complete Time: 16:01 kb 02/28 16:30 Order name: CBC Smear Scan; Complete Time: 17:10 EDMS 02/28 17:20 Order name: COVID-19/FLU A+B; Complete Time: 17:20 EDMS 02/28 15:59 Order name: IV Saline Lock; Complete Time: 16:48 kb 02/28 15:59 Order name: Labs collected and sent; Complete Time: 16:48 kb 02/28 15:59 Order name: EKG - Nurse/Tech; Complete Time: 16:44 kb EC:32 Rate is 71 beats/min. Rhythm is regular. QRS [place] is Normal. MD interval is normal at kb 150 msec. QRS interval is normal at 88 msec. QT interval is normal at 414 msec. Administered Medications: 16:43 Drug: Zofran (Ondansetron) 4 mg Route: IVP; Site: right antecubital; vg1 17:26 Follow up: Response: Nausea is decreased vg1 16:43 Drug: GI Cocktail without - (Maalox Suspension 30 ml, Lidocaine Liquid 2 % 15 vg1 ml) Route: PO; 17:26 Follow up: Response: Anxiety decreased vg1 16:44 Drug: NS 0.9% 1000 ml Route: IV; Rate: 1000 ml; Site: right antecubital; vg1 18:30 Follow up: IV Status: Completed infusion; IV Intake: 1000ml vg1 17:37 Drug: morphine 2 mg {Note: rass 0.} Route: IVP; Site: right antecubital; vg1 18:09 Follow up: Response: Pain is decreased vg1 18:29 Follow up: Response: No adverse reaction vg1 Disposition: 02/29/20 17:23 Discharged to Home. Impression: Epigastric pain, Nausea with vomiting, unspecified, Diarrhea, unspecified. - Condition is Stable. - Discharge Instructions: Food Choices to Help Relieve Diarrhea, Adult, Nausea and Vomiting, Adult, [id number], Diarrhea, Adult, [id number]. - Prescriptions for Bentyl 20 mg Oral Tablet - take 1 tablet by ORAL route every 6 hours As needed; 20 tablet. Zofran 4 mg Oral Tablet - take 1 tablet by ORAL route every 6 hours As needed; 20 tablet. - Medication Reconciliation Form, Thank You Letter, Antibiotic Education, Prescription Opioid Use form. - Follow up: Emergency Department; When: As needed; Reason: Worsening of condition. Follow up: Private Physician; When: 2 - 3 days; Reason: Recheck today's complaints, Continuance of care, Re-evaluation by your physician. Addendum: 03/01/2020 20:12 Co-signature as Attending Physician, Nataliya Bowling MD. m a2 Signatures: Dispatcher [employer] [facility] Shantelle Peraza, INFORMATION MANAGER-C INFORMATION MANAGER-CkNataliya Argueta MD MD ma2 Fiona Salas RN RN vg1 Demi Kearney RN RN ll1 Corrections: (The following items were deleted from the chart) 02/28 16:32 16:06 CORONAVIRUS+MR.LAB.BRZ ordered. EDVA EDVA 16:33 16:06 Influenza Screen (A \T\ B)+BA.LAB.BRZ ordered. EDVA EDVA 17:20 17:20 Constitutional: Negative for fever, chills, and weight loss, Cardiovascular: kb Negative for chest pain, palpitations, and edema, Respiratory: Negative for shortness of breath, cough, wheezing, and pleuritic chest pain, Back: Negative for injury and pain, MS/Extremity: Negative for injury and deformity, Skin: Negative for injury, rash, and discoloration, Neuro: Negative for headache, weakness, numbness, tingling, and seizure, kb 17:20 17:20 Constitutional: This is a well developed, well nourished patient who is awake, kb alert, and in no acute distress. Head/Face: Normocephalic, atraumatic. Chest/axilla: Normal chest wall appearance and motion. Nontender with no deformity. No lesions are appreciated. Cardiovascular: Regular rate and rhythm with a normal S1 and S2. No gallops, murmurs, or rubs. Normal PMI, no JVD. No pulse deficits. Respiratory: Lungs have equal breath sounds bilaterally, clear to auscultation and percussion. No rales, rhonchi or wheezes noted. No increased work of breathing, no retractions or nasal flaring. Back: No spinal tenderness. No costovertebral tenderness. Full range of motion. Skin: Warm, dry with normal turgor. Normal color with no rashes, no lesions, and no evidence of cellulitis. MS/ Extremity: Pulses equal, no cyanosis. Neurovascular intact. Full, normal range of motion. Neuro: Awake and alert, GCS 15, oriented to person, place, time, and situation. Cranial nerves II-XII grossly intact. Motor strength 5/5 in all extremities. Sensory grossly intact. Cerebellar exam normal. Normal gait. kb 17:20 17:20 Abdomen/GI: Inspection: abdomen appears normal, Bowel sounds: normal, in all kb quadrants, Palpation: abdomen is soft and non-tender, in all quadrants, kb 18:30 17:23 02/29/2020 17:23 Discharged to Home. Impression: Epigastric pain; Nausea with vg1 vomiting, unspecified; Diarrhea, unspecified. Condition is Stable. Forms are Medication Reconciliation Form, Thank You Letter, Antibiotic Education, Prescription Opioid Use. Follow up: Emergency Department; When: As needed; Reason: Worsening of condition. Follow up: Private Physician; When: 2 - 3 days; Reason: Recheck today's complaints, Continuance of care, Re-evaluation by your physician. kb
--- NOTE | 2020-02-29 17:24 | ER ---
Nurse's Notes [facility] Name: Shivani Lagunas Age: 44 yrs Sex: Female : 1975 Arrival Date: 02/29/2020 Time: 15:14 Bed 15 Private MD: Diagnosis: Epigastric pain;Nausea with vomiting, unspecified;Diarrhea, unspecified Presentation: 02/28 15:19 Chief complaint: Patient states: Seen here a couple days ago for epigastric pain. ll1 States she started having N/V/D last night with the pain. No fever. Coronavirus screen: Client denies travel out of the [place] in the last 14 days. cough unrelated to allergies, diarrhea, fatigue, nausea, vomiting. Client presents with at least one sign or symptom that may indicate coronavirus-19. Standard/surgical mask placed on the client. Ebola Screen: Patient denies travel to an Ebola-affected area in the 21 days before illness onset. Initial Sepsis Screen: Does the patient meet any 2 criteria? No. Patient's initial sepsis screen is negative. Does the patient have a suspected source of infection? Yes: Acute abdominal pain. Risk Assessment: Do you want to hurt yourself or someone else? Patient reports no desire to harm self or others. Onset of symptoms was February 01, 2020. 15:19 Method Of Arrival: Ambulatory ll1 15:19 Acuity: ALICIA 3 ll1 Historical: - Allergies: 15:22 Sulfa (Sulfonamide Antibiotics); ll1 - PMHx: 15:22 High Cholesterol; Gout; Hypertension; fatty liver; Bipolar disorder; Arrythmia; ll1 Anxiety; depression, anxiety, insomnia; - PSHx: 15:22 Cholecystectomy; ; Tubal ligation; ll1 - Immunization history:: Flu vaccine is not up to date. - Social history:: Smoking status: Reported history of juuling and/or vaping. Screenin:25 Abuse screen: Denies threats or abuse. Nutritional screening: No deficits noted. vg1 Tuberculosis screening: No symptoms or risk factors identified. Fall Risk None identified. Assessment: 16:25 General: Appears in no apparent distress. comfortable, Behavior is calm, cooperative. vg1 Pain: Complains of pain in epigastric area Pain radiates to Right side of back Pain currently is 8 out of 10 on a pain scale. Neuro: Level of Consciousness is awake, alert, obeys commands, Oriented to person, place, time, situation. Cardiovascular: Patient's skin is warm and dry. Respiratory: Airway is patent Respiratory effort is even, unlabored. GI: Bowel sounds present X 4 quads. Abd is soft X 4 quads Abdomen is tender to palpation in epigastric area Reports diarrhea, nausea, vomiting. : No signs and/or symptoms were reported regarding the genitourinary system. EENT: No signs and/or symptoms were reported regarding the EENT system. Derm: Skin is intact, is healthy with good turgor. Musculoskeletal: Circulation, motion, and sensation intact. 17:26 Reassessment: Patient appears in no apparent distress at this time. No changes from vg1 previously documented assessment. Patient is alert, oriented x 3, equal unlabored respirations, skin warm/dry/pink. Patient up for d/c. Awaiting for IV fluids to complete. Patient states feeling better. Vital Signs: 15:19 BP 132 / 61; Pulse 77; Resp 16; Temp 98.2; Pulse Ox 100% ; Weight 94.35 kg; Height 5 ll1 ft. 6 in. (167.64 cm); Pain 8/10; 16:30 BP 127 / 66; Pulse 71; Resp 16; Pulse Ox 98% on R/A; vg1 17:00 BP 127 / 68; Pulse 70; Resp 14; Pulse Ox 100% on R/A; vg1 15:19 Body Mass Index 33.57 (94.35 kg, 167.64 cm) ll1 ED Course: 15:14 Patient arrived in ED. rg4 15:21 Triage completed. ll1 15:22 Arm band placed on. ll1 15:46 Shantelle Peraza FNP-C is [facility]. kb 15:46 Nataliya Bowling MD is Attending Physician. kb 15:59 Fiona Salas, AMANDA is Primary Nurse. vg1 16:25 Patient has correct armband on for positive identification. Bed in low position. Call vg1 light in reach. Side rails up X 1. 18:29 No provider procedures requiring assistance completed. IV discontinued, intact, vg1 bleeding controlled, No redness/swelling at site. Pressure dressing applied. Administered Medications: 16:43 Drug: Zofran (Ondansetron) 4 mg Route: IVP; Site: right antecubital; vg1 17:26 Follow up: Response: Nausea is decreased vg1 16:43 Drug: GI Cocktail without - (Maalox Suspension 30 ml, Lidocaine Liquid 2 % 15 vg1 ml) Route: PO; 17:26 Follow up: Response: Anxiety decreased vg1 16:44 Drug: NS 0.9% 1000 ml Route: IV; Rate: 1000 ml; Site: right antecubital; vg1 18:30 Follow up: IV Status: Completed infusion; IV Intake: 1000ml vg1 17:37 Drug: morphine 2 mg {Note: rass 0.} Route: IVP; Site: right antecubital; vg1 18:09 Follow up: Response: Pain is decreased vg1 18:29 Follow up: Response: No adverse reaction vg1 Intake: 18:30 IV: 1000ml; Total: 1000ml. vg1 Outcome: 17:23 Discharge ordered by . jossie 18:29 Discharged to home ambulatory. vg1 18:29 Condition: stable 18:29 Discharge instructions given to patient, Instructed on discharge instructions, follow up and referral plans. medication usage, Demonstrated understanding of instructions, follow-up care, medications, Prescriptions given X 2. 18:30 Patient left the ED. vg1 Signatures: Shantelle Peraza, ABAD-C CONTENT DIRECTOR-Lalita Hill rg4 Fiona Salas RN RN vg1 Demi Kearney RN RN ll1 Corrections: (The following items were deleted from the chart) 17:27 17:26 Reassessment: Patient appears in no apparent distress at this time. No changes vg1 from previously documented assessment. Patient is alert, oriented x 3, equal unlabored respirations, skin warm/dry/pink. Patient states feeling better. vg1
[2020-02-29] MEDS ORDERED: MORPHINE 2 MG/ML SYR ONE (17:45)
[2020-02-29 18:42] VITALS: TEMP 98.2
[2020-02-29 18:44] VITALS: BP 127/68; O2SAT 100
== END 2020-02-29 18:30 | disposition home or self-care (01) ==
LOC: ER 15:12
DX: R11.2 Nausea with vomiting, unspecified (principal); R19.7 Diarrhea, unspecified; Z20.822 Contact with and (suspected) exposure to COVID-19; I10 Essential (primary) hypertension; Z88.2 Allergy status to sulfonamides
CPT/HCPCS: 0240U; 36415; 80048; 80076; 83690; 84484; 85025; 93005; 96361; 96374; 96375; 99283; J2270; J2405; J7030

== ENCOUNTER 2020-04-16 20:22 | Emergency (ER) | payer SELFPAY ==
--- OUTSIDE RECORDS SUMMARY | 2020-04-16 20:25 | XMS REPORT | Continuity of Care Document ---
:1975 Author Organization [facility] t Address [address] [place] [address] Care Team Providers Name Role Phone Unavailable [...] VERY HIGH.........>/ = 190 mg/dL Comments to Community Case Manager: ADD TO AM LABSLIPID PROFILE (CORONARY RISK)2018-07-20 [...] MG/DL 0-99 code = LDL) Comments to Community Case Manager: ADD TO AM LABSPROTHROMBIN [id number] 06:24:00 Test Item Value Reference Range Interpretation [...] karla embolism. 3.0 - 4.5 Comments to Community Case Manager: NURSE WILL BRING SPECIMEN TO LABPTT ACTIVATED 2018-07-20 06:24:00 Test Item Value Reference Range Interpretation Comments PTT ACTIVATED (test code = APTT) 29.3 SECONDS 22.0-33.0 N Comments to Community Case Manager: NURSE WILL [facility]IMEN [facility] 2018-07-20 06:13:00 Test Item [...] 9.6 MG/DL 8.4-10.2 N CA) Comments to Community Case Manager: NURSE WILL BRING SPECIMEN TO LAB Comments to Community Case Manager: NURSE WILL BRING SPECIMEN TO [id number] 06:13:00 Test Item Value Reference Range Interpretation Comments MAGNESIUM (test code = MAG) 2.2 MG/DL 1.6-2.3 N Comments to Community Case Manager: NURSE WILL BRING SPECIMEN TO LAB Comments to Community Case Manager: NURSE WILL BRING SPECIMEN TO LABCBC W/AUTO [id number] 06:02:00 Test Item Value Reference Range Interpretation [...]
[2020-04-16 21:48] LABS: Urine Specific Gravity 1.025 (1.005-1.030)
[2020-04-16 21:48] LABS: Urine Blood 1+ (NEG); Urine Glucose NEGATIVE (NEG); Urine Protein NEGATIVE (NEG); Urine Specific Gravity 1.025 (1.005-1.030); Urine pH 6.5 (5.0-7.0)
[2020-04-16 21:51] LABS: Absolute Lymphocytes (CBC) 1.8 K/uL (0.7-4.9); Basophils % 0.8 % (0-1.3); Lymphocytes % 23.6 % (15.3-44.8); MPV 10.1 fL (7.6-11.3); RBC Red Blood Cell Count 3.78 M/uL (3.86-4.86)
[2020-04-16 21:52] LABS: Protime INR 0.97
[2020-04-16] MEDS ORDERED: MORPHINE 2 MG/ML SYR ONE (22:01)
[2020-04-16] MEDS ORDERED: ONDANSETRON 4 MG/2 ML VIAL ONE (22:01)
[2020-04-16 22:05] LABS: ALT/SGPT 32 U/L (12-78); AST/SGOT 17 U/L (15-37); Albumin 3.2 g/dL (3.4-5.0); Alkaline Phosphatase 130 U/L (45-117); BUN Blood Urea Nitrogen 11 mg/dL (7-18); Bicarbonate 29 mmol/L (21-32); Bilirubin Direct < 0.1 mg/dL (0-0.2); Bilirubin Total 0.3 mg/dL (0.2-1.0); Glucose Level 95 mg/dL (74-106); Magnesium 2.3 mg/dL (1.8-2.4); NT PRO-BNP 49 pg/mL (<125); Potassium 3.9 mmol/L (3.5-5.1); Sodium Level 141 mmol/L (136-145); Troponin (Emerg Dept Use Only) < 0.02 ng/mL (0.0-0.045)
--- NOTE | 2020-04-16 23:49 | EDPHYS ---
Physician Documentation [facility] Name: Shivani Lagunas Age: 44 yrs Sex: Female : 1975 Arrival Date: 04/16/2020 Time: 20:25 Bed 24 Private MD: ED Physician Eder Meredith HPI: 04/16 21:29 This 44 yrs old Female presents to ER via Ambulatory with complaints of mh7 Irregular heartbeat, Chest Pressure. 21:29 The patient or guardian reports chest pain that is located primarily in the anterior mh7 chest wall, left. 21:29 Onset: 3 day(s) ago. The pain radiates to left back. mh7 21:30 Associated signs and symptoms: Pertinent positives: palpitations, Pertinent negatives: mh7 abdominal pain, cough, diaphoresis, dizziness, headache, lower extremity pain, lower extremity swelling, lightheadedness, nausea, near syncope, recent travel, shortness of breath, syncope, vomiting. The chest pain is described as a pressure. Duration: The patient or guardian reports multiple episodes, that are intermittent, that wax and wane. Modifying factors: The symptoms are alleviated by nothing. the symptoms are aggravated by nothing. Severity of pain: At its worst the pain was moderate 3 day(s) ago, in the emergency department the pain has improved moderately. 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 - Social history:: Smoking status: Patient denies any tobacco usage or history of. ROS: 21:30 Constitutional: Negative for fever, chills, and weight loss, Eyes: Negative for injury, mh7 pain, redness, and discharge, ENT: Negative for injury, pain, and discharge, Neck: Negative for injury, pain, and swelling, Respiratory: Negative for shortness of breath, cough, wheezing, and pleuritic chest pain, Abdomen/GI: Negative for abdominal pain, nausea, vomiting, diarrhea, and constipation, : Negative for injury, bleeding, discharge, and swelling, MS/Extremity: Negative for injury and deformity, Skin: Negative for injury, rash, and discoloration, Neuro: Negative for headache, weakness, numbness, tingling, and seizure, Psych: Negative for depression, anxiety, suicide ideation, homicidal ideation, and hallucinations, Allergy/Immunology: Negative for hives, rash, and allergies, Endocrine: Negative for neck swelling, polydipsia, polyuria, polyphagia, and marked weight changes, Hematologic/Lymphatic: Negative for swollen nodes, abnormal bleeding, and unusual bruising. Exam: 21:30 Constitutional: This is a well developed, well nourished patient who is awake, alert, mh7 and in no acute distress. Head/Face: Normocephalic, atraumatic. Eyes: Pupils equal round and reactive to light, extra-ocular motions intact. Lids and lashes normal. Conjunctiva and sclera are non-icteric and not injected. Cornea within normal limits. Periorbital areas with no swelling, redness, or edema. Neck: Trachea midline, no thyromegaly or masses palpated, and no cervical lymphadenopathy. Supple, full range of motion without nuchal rigidity, or vertebral point tenderness. No Meningismus. 21:30 Cardiovascular: Regular rate and rhythm with a normal S1 and S2. No gallops, murmurs, or rubs. Normal PMI, no JVD. No pulse deficits. Respiratory: Lungs have equal breath sounds bilaterally, clear to auscultation and percussion. No rales, rhonchi or wheezes noted. No increased work of breathing, no retractions or nasal flaring. Abdomen/GI: Soft, non-tender, with normal bowel sounds. No distension or tympany. No guarding or rebound. No evidence of tenderness throughout. Back: No spinal tenderness. No costovertebral tenderness. Full range of motion. Skin: Warm, dry with normal turgor. Normal color with no rashes, no lesions, and no evidence of cellulitis. MS/ Extremity: Pulses equal, no cyanosis. Neurovascular intact. Full, normal range of motion. Neuro: Awake and alert, GCS 15, oriented to person, place, time, and situation. Cranial nerves II-XII grossly intact. Motor strength 5/5 in all extremities. Sensory grossly intact. Cerebellar exam normal. Normal gait. Psych: Awake, alert, with orientation to person, place and time. Behavior, mood, and affect are within normal limits. 21:30 Chest/axilla: Inspection: normal, Palpation: tenderness, that is moderate, of the anterior aspect of left upper chest, that totally reproduces the patient's complaints. Vital Signs: 20:27 BP 142 / 78; Pulse 73; Resp 18 S; Temp 97.8(TE); Pulse Ox 99% on R/A; Weight 95.25 kg ca1 (R); Height 5 ft. 6 in. (167.64 cm) (R); Pain 6/10; 21:21 BP 119 / 68; Pulse 66; Resp 16; Pulse Ox 99% on R/A; zb 22:30 BP 127 / 70; Pulse 62; Resp 18; Pulse Ox 99% on R/A; zb 23:28 BP 130 / 61; Pulse 60; Resp 16; Pulse Ox 100% on R/A; zb 20:27 Body Mass Index 33.89 (95.25 kg, 167.64 cm) ca1 MDM: 23:47 Differential diagnosis: acute myocardial infarction, acute pericarditis, anxiety, [facility] coronary artery disease chest wall pain, congestive heart failure costochondritis, pericarditis, pneumonia, pneumothorax, pulmonary embolus. HEART Score: History: Slightly Suspicious (0), ECG: Normal (0), Age: < or = 45 years (0), Risk Factors: 1 or 2 risk factors (1), [Hypertension] Troponin: < or = 1 x Normal Limit (0), Total Score = 1. Data reviewed: vital signs, nurses notes, old medical records, lab test result(s), cardiac enzymes, CBC, electrolytes, EKG, radiologic studies, plain films. Data interpreted: Pulse oximetry: on room air is 100 %. Interpretation: normal. Counseling: I had a detailed discussion with the patient and/or guardian regarding: the historical points, exam findings, and any diagnostic results supporting the discharge/admit diagnosis, lab results, radiology results, the need for outpatient follow up, to return to the emergency department if symptoms worsen or persist or if there are any questions or concerns that arise at home. 23:48 Patient medically screened. [facility] 04/16 20:56 Order name: Basic Metabolic Panel [facility] 04/16 20:56 Order name: CBC with Diff [facility] 04/16 20:56 Order name: LFT's [facility] 04/16 20:56 Order name: Magnesium [facility] 04/16 20:56 Order name: NT PRO-BNP [facility] 04/16 20:56 Order name: PT-INR [facility] 04/16 20:56 Order name: Troponin (emerg Dept Use Only) [facility] 04/16 21:44 Order name: Urine Dipstick--Ancillary (enter results) [facility] 04/16 21:45 Order name: Urine --Ancillary (enter results) [facility] 04/16 21:49 Order name: Urine Dipstick-Ancillary; Complete Time: 22:59 EDMS 04/16 21:49 Order name: Urine --Ancillary; Complete Time: 22:59 EDMS 04/16 21:53 Order name: Protime (+INR); Complete Time: 22:59 EDMS 04/16 21:55 Order name: CBC with Automated Diff; Complete Time: 22:59 EDMS 04/16 22:05 Order name: Basic Metabolic Panel; Complete Time: 22:59 EDMS 04/16 20:56 Order name: XRAY Chest (1 view) [facility] 04/16 20:56 Order name: EKG; Complete Time: 20:58 [facility] 04/16 20:56 Order name: Cardiac monitoring; Complete Time: 21:27 [facility] 04/16 20:56 Order name: EKG - Nurse/Tech; Complete Time: 21:27 [facility] 04/16 20:56 Order name: IV Saline Lock; Complete Time: 21:27 [facility] 04/16 20:56 Order name: Labs collected and sent; Complete Time: 21:27 [facility] 04/16 20:56 Order name: O2 Per Protocol; Complete Time: 21:27 [facility] 04/16 20:56 Order name: O2 Sat Monitoring; Complete Time: 21:27 [facility] 04/16 22:05 Order name: Liver (Hepatic) Function; Complete Time: 22:59 EDMS 04/16 22:05 Order name: Troponin (Emerg Dept Use Only); Complete Time: 22:59 EDMS 04/16 22:05 Order name: NT PRO-BNP; Complete Time: 22:59 EDMS 04/16 22:05 Order name: Magnesium; Complete Time: 22:59 EDMS 04/16 23:02 Order name: D-Dimer [facility] 04/16 23:24 Order name: D-Dimer; Complete Time: 23:41 [facility] 04/16 20:57 Order name: Urine Dipstick-Ancillary (obtain specimen); Complete Time: 21:45 [facility] 04/16 20:57 Order name: Urine Test (obtain specimen); Complete Time: 21:45 [facility] Administered Medications: 21:52 Drug: morphine 2 mg Route: IVP; Site: left antecubital; zb 23:57 Follow up: Response: No adverse reaction zb 21:52 Drug: Zofran (Ondansetron) 4 mg Route: IVP; Site: left antecubital; zb 23:57 Follow up: Response: No adverse reaction; Marked relief of symptoms zb Disposition: 04/16/20 23:48 Discharged to Home. Impression: Chest pain, unspecified. - Condition is Stable. - Discharge Instructions: Chest Wall Pain, Nonspecific Chest Pain, Hgsv-my-Visn. - Prescriptions for Ibuprofen 800 mg Oral Tablet - take 1 tablet by ORAL route every 8 hours As needed take with food; 15 tablet. Robaxin 500 mg Oral Tablet - take 1 tablet by ORAL route every 6 hours As needed; 20 tablet. - Medication Reconciliation Form, Thank You Letter, Antibiotic Education, Prescription Opioid Use form. - Follow up: Private Physician; When: 1 - 2 days; Reason: Worsening of condition, Recheck today's complaints, Continuance of care, Re-evaluation by your physician. - Problem is new. - Symptoms have improved. Signatures: Dispatcher [employer] [facility] Kim Tillman RN RN ca1 Eder Meredith MD MD [facility] Jessica Granado RN RN zb Corrections: (The following items were deleted from the chart) 04/17 00:01 04/16 23:48 04/16/2020 23:48 Discharged to Home. Impression: Chest pain, unspecified. zb Condition is Stable. Forms are Medication Reconciliation Form, Thank You Letter, Antibiotic Education, Prescription Opioid Use. Follow up: Private Physician; When: 1 - 2 days; Reason: Worsening of condition, Recheck today's complaints, Continuance of care, Re-evaluation by your physician. Problem is new. Symptoms have improved. [facility]
--- NOTE | 2020-04-16 23:49 | ER ---
Nurse's Notes [facility] Name: Shivani Lagunas Age: 44 yrs Sex: Female : 1975 Arrival Date: 04/16/2020 Time: 20:25 Bed 24 Private MD: Diagnosis: Chest pain, unspecified Presentation: 04/16 20:27 Chief complaint: Patient states: HX of irregular HR. Chest pressure x 2 - 3 days ca1 radiating to the back. Today, I can feel my pulse on my throat, increasing in chest pressure with SOB. Coronavirus screen: Client denies travel out of the [place] in the last 14 days. shortness of breath, Client presents with at least one sign or symptom that may indicate coronavirus-19. Standard/surgical mask placed on the client. Provider contacted for isolation considerations. Ebola Screen: Patient negative for fever greater than or equal to 101.5 degrees Fahrenheit, and additional compatible Ebola Virus Disease symptoms Patient denies exposure to infectious person. Patient denies travel to an Ebola-affected area in the 21 days before illness onset. No symptoms or risks identified at this time. Initial Sepsis Screen: Does the patient meet any 2 criteria? No. Patient's initial sepsis screen is negative. Does the patient have a suspected source of infection? No. Patient's initial sepsis screen is negative. Risk Assessment: Do you want to hurt yourself or someone else? Patient reports no desire to harm self or others. Onset of symptoms was April 16, 2020. 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 - Social history:: Smoking status: Patient denies any tobacco usage or history of. Screenin:50 Abuse screen: Denies threats or abuse. Denies injuries from another. Nutritional zb screening: No deficits noted. Tuberculosis screening: No symptoms or risk factors identified. Fall Risk None identified. Assessment: 20:50 Reassessment: ECP at bedside. zb 21:13 General: Appears in no apparent distress. uncomfortable, Behavior is calm, cooperative, zb appropriate for age. Pain: Complains of pain in back of neck Pain does not radiate. Pain currently is 6 out of 10 on a pain scale. Quality of pain is described as heavy, pressure, Pain began 7 days Is continuous. Neuro: Level of Consciousness is awake, alert, obeys commands, Oriented to person, place, time, situation. Cardiovascular: Capillary refill < 3 seconds Patient's skin is warm and dry. Cardiovascular: Reports chest pain, lightheadedness, nausea, shortness of breath, Rhythm is regular Chest pain is described as mild, quality is heaviness, pressure, is located in left anterior chest wall began 7 days. Respiratory: Airway is patent Respiratory effort is even, unlabored, Respiratory pattern is regular, symmetrical. GI: Reports nausea, Patient currently denies abdominal pain. : No signs and/or symptoms were reported regarding the genitourinary system. EENT: No signs and/or symptoms were reported regarding the EENT system. Derm: Skin is intact, is healthy with good turgor, Skin is dry, Skin is normal, Skin temperature is warm. Musculoskeletal: Range of motion: intact in all extremities. 22:13 Reassessment: Patient appears in no apparent distress at this time. Patient and/or zb family updated on plan of care and expected duration. Pain level reassessed. Patient is alert, oriented x 3, equal unlabored respirations, skin warm/dry/pink. Patient states feeling better. 23:30 Reassessment: Patient appears in no apparent distress at this time. Patient and/or zb family updated on plan of care and expected duration. Pain level reassessed. Patient is alert, oriented x 3, equal unlabored respirations, skin warm/dry/pink. Patient states feeling better. Patient states symptoms have improved. Vital Signs: 20:27 BP 142 / 78; Pulse 73; Resp 18 S; Temp 97.8(TE); Pulse Ox 99% on R/A; Weight 95.25 kg ca1 (R); Height 5 ft. 6 in. (167.64 cm) (R); Pain 6/10; 21:21 BP 119 / 68; Pulse 66; Resp 16; Pulse Ox 99% on R/A; zb 22:30 BP 127 / 70; Pulse 62; Resp 18; Pulse Ox 99% on R/A; zb 23:28 BP 130 / 61; Pulse 60; Resp 16; Pulse Ox 100% on R/A; zb 20:27 Body Mass Index 33.89 (95.25 kg, 167.64 cm) ca1 ED Course: 20:25 Patient arrived in ED. bp1 20:28 Eder Meredith MD is Attending Physician. mh7 20:43 Triage completed. ca1 20:44 Arm band placed on right wrist. ca1 20:50 Jessica Granado RN is Primary Nurse. zb 21:18 Patient has correct armband on for positive identification. monitoring and evaluation advisor on. Pulse zb ox on. NIBP on. Door closed. Noise minimized. Warm blanket given. 21:20 Missed attempt(s): 20 gauge in right forearm. Patient maintains SpO2 saturation greater zb than 95% on room air. 21:24 Inserted saline lock: 20 gauge in left antecubital area, using aseptic technique. Blood dh4 collected. 23:40 D-Dimer Sent. zb 23:57 No provider procedures requiring assistance completed. IV discontinued, intact, zb bleeding controlled, No redness/swelling at site. Pressure dressing applied. 03 12:48 XRAY Chest (1 view) In Process Unspecified. EDMS Administered Medications: 03 21:52 Drug: morphine 2 mg Route: IVP; Site: left antecubital; zb 23:57 Follow up: Response: No adverse reaction zb 21:52 Drug: Zofran (Ondansetron) 4 mg Route: IVP; Site: left antecubital; zb 23:57 Follow up: Response: No adverse reaction; Marked relief of symptoms zb Outcome: 23:48 Discharge ordered by . 7 23:57 Discharged to home ambulatory. zb 23:57 Condition: stable 23:57 Discharge instructions given to patient, Instructed on discharge instructions, follow up and referral plans. medication usage, Demonstrated understanding of instructions, follow-up care, medications, Prescriptions given X 2. 03/06 00:01 Patient left the ED. zb Signatures: Dispatcher [employer] EDMS Kim Tillman RN RN ca1 Levi Ybarra 4 Zunilda Garcia Maurice, MD MD mh7 Jessica Granado, RN RN zb
[2020-04-17 02:56] VITALS: TEMP 97.8
[2020-04-17 02:59] VITALS: BP 130/61; O2SAT 100
--- NOTE | 2020-04-17 22:14 | RAD REPORT ---
EXAM DESCRIPTION: RAD - Chest Single View - 04/16/2020 9:25 pm CLINICAL HISTORY: 44 years Female, CHEST PAIN COMPARISON: None. TECHNIQUE: Single portable x-ray view of the chest performed on 04/16/2020 at 9:08 PM FINDINGS: The lungs are well expanded and are clear. There is no evidence of a pneumothorax. There i s mild elevation of the right hemidiaphragm. The cardiac silhouette is normal in size and configuration. The mediastinal contours are normal. No acute osseous abnormality is identified. No acute soft tissue abnormalities are seen. Lines and tubes: None. Free air: None IMPRESSION: No evidence of acute intrathoracic disease. 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 The interpreting radiologist is fully responsible for the content of the report.
--- NOTE | 2020-04-19 14:23 | ECHO ---
HEIGHT: 5 ft 6 in WEIGHT: 210 lb 0 oz DATE OF STUDY: 04/19/[address]: Eder Meredith 2-DIMENSIONAL: YES M.MODE: YES DOPPLER: YES COLOR FLOW: YES TDS: YES PORTABLE: YES DEFINITY: BUBBLE STUDY: DIAGNOSIS: SADDLE PE CARDIAC HISTORY: CATHERIZATION: NO SURGERY: NO PROSTHETIC VALVE: NO PACEMAKER: NO MEASUREMENTS (cm) DIASTOLIC (NORMALS) SYSTOLIC (NORMALS) IVSd 1.2 (0.6-1.2) LA Diam 2.5 (1.9-4.0) LVEF 55-60% LVIDd 3.3 (3.5-5.7) LVIDs 2.5 (2.0-3.5) %FS 25% LVPWd 1.2 (0.6-1.2) Ao Diam 2.6 (2.0-3.7) 2 DIMENSIONAL ASSESSMENT: RIGHT ATRIUM: NORMAL LEFT ATRIUM: NORMAL RIGHT VENTRICLE: NORMAL LEFT VENTRICLE: NORMAL TRICUSPID VALVE: NORMAL MITRAL VALVE: NORMAL PULMONIC VALVE: NORMAL AORTIC VALVE: NORMAL PERICARDIAL EFFUSION: NONE AORTIC ROOT: NORMAL LEFT VENTRICULAR WALL MOTION: SEPTAL WALL MOTION ABNORMALITY DUE CONDUCTION ABNORMALITY. DOPPLER/COLOR FLOW: NORMAL COMMENTS: NORMAL LEFT VENTRICULAR EJECTION FRACTION 55-60%. SEPTAL WALL MOTION ABNORMALITY SECONDARY CONDUCTION ABNORMALITY. NORMAL RIGHT VENTRICULAR SIZEN AND FUNCTION. TECHNOLOGIST: ALURA LINN
== END 2020-04-17 00:01 | disposition home or self-care (01) ==
LOC: ER 20:22
DX: R07.89 Other chest pain (principal); I10 Essential (primary) hypertension; Z88.2 Allergy status to sulfonamides
CPT/HCPCS: 36415; 71045; 80048; 80076; 81003; 81025; 83735; 83880; 84484; 85025; 85379; 85610; 93005; 96374; 96375; 99285; J2270; J2405

== ENCOUNTER 2020-05-13 19:56 | Emergency (ER) | payer SELFPAY ==
--- OUTSIDE RECORDS SUMMARY | 2020-05-13 19:58 | XMS REPORT | Continuity of Care Document ---
:1975 Author Organization [facility] t Address [address] [place] [address] Care Team Providers Name Role Phone Gil Wallis DO Attending Clinician Payers Payer Name Policy Type Policy Number Effective Date Expiration Date S ource Problems This patient has no known problems. Allergies, Adverse Reactions, Alerts This patient has no known allergies or adverse reactions. Medications This patient has no known medications. Procedures This patient has no known procedures. Encounters Start End Encounter Admission Attending Care Care Encounter Source Date/Time Date/Time Type Type Clinicians Facility Department ID 2020-04-29 2020-04-29 Patient Bimal RUST [id number] 00:00:00 00:00:00 Outreach [facility] [id number] Gil [facility] [id number] [place] [id number] Results Test Description Test Time Test Comments [...] VERY HIGH.........>/ = 190 mg/dL Comments to District Service Manager: ADD TO AM LABSLIPID PROFILE (CORONARY [...] MG/DL 0-99 code = LDL) Comments to District Service Manager: ADD TO AM LABSPROTHROMBIN [id number] 06:24:00 Test Item Value Reference Range Interpretation [...] karla embolism. 3.0 - 4.5 Comments to District Service Manager: NURSE WILL BRING SPECIMEN TO LABPTT ACTIVATED 2018-07-20 06:24:00 Test Item Value Reference Range Interpretation Comments PTT ACTIVATED (test code = APTT) 29.3 SECONDS 22.0-33.0 N Comments to District Service Manager: NURSE WILL BRING SPECIMEN TO LABBASIC METABOLIC [...] 9.6 MG/DL 8.4-10.2 N CA) Comments to District Service Manager: NURSE WILL BRING SPECIMEN TO LAB Comments to District Service Manager: NURSE WILL BRING SPECIMEN TO [id number] 06:13:00 Test Item Value Reference Range Interpretation Comments MAGNESIUM (test code = MAG) 2.2 MG/DL 1.6-2.3 N Comments to District Service Manager: NURSE WILL BRING SPECIMEN TO LAB Comments to District Service Manager: NURSE WILL BRING SPECIMEN TO LABCBC W/AUTO [id number] 06:02:00 Test Item Value Reference Range Interpretation [...]
[2020-05-13 22:52] LABS: Absolute Lymphocytes (CBC) 2.2 K/uL (0.7-4.9); Hematocrit 33.2 % (36.0-45.0); Lymphocytes % 27.3 % (15.3-44.8); MPV 10.3 fL (7.6-11.3); RBC Red Blood Cell Count 4.12 M/uL (3.86-4.86)
[2020-05-13 23:01] LABS: Protime INR 0.99
[2020-05-13 23:13] LABS: ALT/SGPT 33 U/L (12-78); AST/SGOT 17 U/L (15-37); Albumin 3.4 g/dL (3.4-5.0); Alkaline Phosphatase 116 U/L (45-117); BUN Blood Urea Nitrogen 13 mg/dL (7-18); Bicarbonate 28 mmol/L (21-32); Bilirubin Direct < 0.1 mg/dL (0-0.2); Bilirubin Total 0.3 mg/dL (0.2-1.0); Glucose Level 95 mg/dL (74-106); Magnesium 2.4 mg/dL (1.8-2.4); NT PRO-BNP 14 pg/mL (<125); Potassium 3.9 mmol/L (3.5-5.1); Protein, Total 7.3 g/dL (6.4-8.2); Sodium Level 139 mmol/L (136-145); Troponin (Emerg Dept Use Only) < 0.02 ng/mL (0.0-0.045)
--- NOTE | 2020-05-13 23:25 | EDPHYS ---
Physician Documentation [facility] Name: Shivani Lagunas Age: 44 yrs Sex: Female : 1975 Arrival Date: 05/13/2020 Time: 19:56 Bed 16 Private MD: JORDON Physician Bal Dowling HPI: 05/13 22:24 This 44 yrs old Female presents to ER via Ambulatory with complaints of Chest jr8 Pain, Shortness Of Breath. 22:24 Patient reports having CP and SOB that radiates down left arm. She also has c/o PÉREZ, jr8 Dizziness, neck pain, and recent COVID exposure. PMHX: Arrythmias with PVCs. BANKMAN: 20:18 LMP N/A - Irregular menses ca1 Historical: - Allergies: 20:17 Sulfa (Sulfonamide Antibiotics); ca1 - PMHx: 20:17 Anxiety; Arrythmia; Bipolar disorder; depression, anxiety, insomnia; Gout; fatty liver; ca1 High Cholesterol; Hypertension; - PSHx: 20:17 Cholecystectomy; ; Tubal ligation; ca1 - Immunization history:: Flu vaccine is not up to date. - Social history:: Smoking status: Patient reports the use of cigarette tobacco products, smokes one-half pack cigarettes per day. ROS: 22:26 Abdomen/GI: Negative for abdominal pain, nausea, vomiting, diarrhea, and constipation, jr8 Back: Negative for injury and pain, MS/Extremity: Negative for injury and deformity, Skin: Negative for injury, rash, and discoloration, Neuro: Negative for headache, weakness, numbness, tingling, and seizure. 22:26 Neck: Positive for pain at rest. 22:26 Cardiovascular: Positive for chest pain, of the chest, palpitations. 22:26 Respiratory: Positive for shortness of breath. 22:26 Neuro: Positive for headache. 22:26 All other systems are negative. Exam: 22:27 Eyes: Pupils equal round and reactive to light, extra-ocular motions intact. Lids and jr8 lashes normal. Conjunctiva and sclera are non-icteric and not injected. Cornea within normal limits. Periorbital areas with no swelling, redness, or edema. Chest/axilla: Normal chest wall appearance and motion. Nontender with no deformity. No lesions are appreciated. Cardiovascular: Regular rate and rhythm with a normal S1 and S2. No gallops, murmurs, or rubs. Normal PMI, no JVD. No pulse deficits. Respiratory: Lungs have equal breath sounds bilaterally, clear to auscultation and percussion. No rales, rhonchi or wheezes noted. No increased work of breathing, no retractions or nasal flaring. Abdomen/GI: Soft, non-tender, with normal bowel sounds. No distension or tympany. No guarding or rebound. No evidence of tenderness throughout. Skin: Warm, dry with normal turgor. Normal color with no rashes, no lesions, and no evidence of cellulitis. MS/ Extremity: Pulses equal, no cyanosis. Neurovascular intact. Full, normal range of motion. Neuro: Awake and alert, GCS 15, oriented to person, place, time, and situation. Cranial nerves II-XII grossly intact. Motor strength 5/5 in all extremities. Sensory grossly intact. Cerebellar exam normal. Normal gait. 22:27 Cardiovascular: Rate: normal, Rhythm: irregular, Pulses: Pulses are 2+ in right radial artery and left radial artery. Heart sounds: normal, Edema: is not appreciated. 22:27 Respiratory: the patient does not display signs of respiratory distress, Respirations: normal, Breath sounds: are clear throughout. Vital Signs: 20:16 BP 113 / 64; Pulse 67; Resp 16 S; Temp 97.3(TE); Pulse Ox 99% on R/A; Weight 94.35 kg ca1 (R); Height 5 ft. 6 in. (167.64 cm) (R); Pain 7/10; 22:00 BP 104 / 56; Pulse 64; Resp 18; Temp 97.8; Pulse Ox 97% ; cr4 22:45 BP 117 / 65; Pulse 67; Resp 18; Pulse Ox 98% ; cr4 23:30 BP 122 / 93; Pulse 65; Resp 16; Temp 97.8; Pulse Ox 99% ; Pain 3/10; cr4 20:16 Body Mass Index 33.57 (94.35 kg, 167.64 cm) ca1 MDM: 21:56 Patient medically screened. [facility] 23:21 Data reviewed: vital signs, nurses notes, lab test result(s), EKG, radiologic studies, jr8 plain films. Data interpreted: Pulse oximetry: on room air is 99 %. Interpretation: normal. Counseling: I had a detailed discussion with the patient and/or guardian regarding: the historical points, exam findings, and any diagnostic results supporting the discharge/admit diagnosis, lab results, radiology results, the need for outpatient follow up, a family practitioner, to return to the emergency department if symptoms worsen or persist or if there are any questions or concerns that arise at home. 23:32 ED course: Pt educated to continue tylenol or ibuprofen at home for PÉREZ. She will be [facility] contacted once COVID results are in and educated for further instructions if needed at that time. She was told to return if her condition worsens or does not improve. . 05/13 22:16 Order name: Basic Metabolic Panel; Complete Time: 23:21 05/13 22:16 Order name: CBC with Diff; Complete Time: 23:05/13 22:16 Order name: LFT's; Complete Time: 23:21 05/13 22:16 Order name: Magnesium; Complete Time: 23:21 05/13 22:16 Order name: NT PRO-BNP; Complete Time: 23:05/13 22:16 Order name: PT-INR; Complete Time: 23:08 05/13 20:18 Order name: EKG; Complete Time: 20:18 ca1 05/13 20:18 Order name: EKG - Nurse/Tech; Complete Time: 20:22 ca1 05/13 22:16 Order name: Troponin (emerg Dept Use Only); Complete Time: 23:21 05/13 22:16 Order name: XRAY Chest (1 view) 05/13 22:16 Order name: Cardiac monitoring; Complete Time: 22:36 05/13 22:16 Order name: IV Saline Lock; Complete Time: 22:36 05/13 22:16 Order name: Labs collected and sent; Complete Time: 22:36 05/13 22:16 Order name: O2 Per Protocol; Complete Time: 22:36 05/13 22:16 Order name: O2 Sat Monitoring; Complete Time: 22:36 Administered Medications: No medications were administered Disposition: 05/14 08:14 Co-signature as Attending Physician, Bal Dowling MD I agree with the assessment and lori plan of care. Disposition: 05/13/20 23:24 Discharged to Home. Impression: Other chest pain. - Condition is Stable. - Discharge Instructions: Chest Wall Pain. - Medication Reconciliation Form, Thank You Letter, Antibiotic Education, Prescription Opioid Use form. - Follow up: Private Physician; When: 2 - 3 days; Reason: Recheck today's complaints, Continuance of care, Re-evaluation by your physician. - Problem is new. - Symptoms have improved. Signatures: Dispatcher [employer] [facility] Bal Dowling MD MD cha Roszak, Josh, PA PA jr8 Anoop Zheng, RN RN rr5 Kim Tillman RN RN ca1 Corrections: (The following items were deleted from the chart) 05/13 23:17 23:07 CORONAVIRUS+MR.LAB.BRZ ordered. [facility] 05/14 00:27 04 23:24 05/13/2020 23:24 Discharged to Home. Impression: Other chest pain. rr5 Condition is Stable. Forms are Medication Reconciliation Form, Thank You Letter, Antibiotic Education, Prescription Opioid Use. Follow up: Private Physician; When: 2 - 3 days; Reason: Recheck today's complaints, Continuance of care, Re-evaluation by your physician. Problem is new. Symptoms have improved. jr8
--- NOTE | 2020-05-13 23:25 | ER ---
Nurse's Notes [facility] Name: Shivani Lagunas Age: 44 yrs Sex: Female : 1975 Arrival Date: 05/13/2020 Time: 19:56 Bed 16 Private MD: Diagnosis: Other chest pain Presentation: 05/13 20:16 Chief complaint: Patient states: Chest pain and SOB x 3 days. Reports cough. Denies ca1 fever. Coronavirus screen: Client denies travel out of the [place] in the last 14 days. cough unrelated to allergies, shortness of breath, Client presents with at least one sign or symptom that may indicate coronavirus-19. Standard/surgical mask placed on the client. Provider contacted for isolation considerations. Ebola Screen: Patient negative for fever greater than or equal to 101.5 degrees Fahrenheit, and additional compatible Ebola Virus Disease symptoms Patient denies exposure to infectious person. Patient denies travel to an Ebola-affected area in the 21 days before illness onset. No symptoms or risks identified at this time. Initial Sepsis Screen: Does the patient meet any 2 criteria? No. Patient's initial sepsis screen is negative. Does the patient have a suspected source of infection? No. Patient's initial sepsis screen is negative. Risk Assessment: Do you want to hurt yourself or someone else? Patient reports no desire to harm self or others. Onset of symptoms was May 13, 2020. 20:16 Method Of Arrival: Ambulatory ca1 20:16 Acuity: ALICIA 3 ca1 [employer]: 20:18 LMP N/A - Irregular menses ca1 Historical: - Allergies: 20:17 Sulfa (Sulfonamide Antibiotics); ca1 - PMHx: 20:17 Anxiety; Arrythmia; Bipolar disorder; depression, anxiety, insomnia; Gout; fatty liver; ca1 High Cholesterol; Hypertension; - PSHx: 20:17 Cholecystectomy; ; Tubal ligation; ca1 - Immunization history:: Flu vaccine is not up to date. - Social history:: Smoking status: Patient reports the use of cigarette tobacco products, smokes one-half pack cigarettes per day. Screenin:37 Abuse screen: Denies threats or abuse. Denies injuries from another. Nutritional rr5 screening: No deficits noted. Tuberculosis screening: No symptoms or risk factors identified. Fall Risk IV access (20 points). Total Rodriguez Fall Scale indicates No Risk (0-24 pts). Assessment: 22:00 General: Appears uncomfortable, well groomed, Behavior is calm, cooperative. Pain: cr4 Complains of pain in occipital /neck Pain does not radiate. Pain currently is 6 out of 10 on a pain scale. Quality of pain is described as aching, Pain began 2-3 days ago. Is continuous. Neuro: Level of Consciousness is awake, alert, obeys commands, Oriented to person, place, time, Speech is normal, Facial symmetry appears normal, Reports weakness generalized. Cardiovascular: Reports chest pain, shortness of breath, Denies diaphoresis, lightheadedness, palpitations. Respiratory: Reports shortness of breath at rest on exertion Airway is patent Respiratory effort is even, unlabored, Respiratory pattern is regular. GI: Reports diarrhea, nausea. : Denies burning with urination, urinary frequency. EENT: No deficits noted. Reports Denies. 23:00 Reassessment: Patient and/or family updated on plan of care and expected duration. Pain cr4 level reassessed. Patient states feeling better. 05/14 00:00 Reassessment: No changes from previously documented assessment. Patient and/or family cr4 updated on plan of care and expected duration. Pain level reassessed. Vital Signs: 05/13 20:16 BP 113 / 64; Pulse 67; Resp 16 S; Temp 97.3(TE); Pulse Ox 99% on R/A; Weight 94.35 kg ca1 (R); Height 5 ft. 6 in. (167.64 cm) (R); Pain 7/10; 22:00 BP 104 / 56; Pulse 64; Resp 18; Temp 97.8; Pulse Ox 97% ; cr4 22:45 BP 117 / 65; Pulse 67; Resp 18; Pulse Ox 98% ; cr4 23:30 BP 122 / 93; Pulse 65; Resp 16; Temp 97.8; Pulse Ox 99% ; Pain 3/10; cr4 20:16 Body Mass Index 33.57 (94.35 kg, 167.64 cm) ca1 ED Course: 19:56 Patient arrived in ED. cl3 20:17 Triage completed. ca1 20:17 Arm band placed on right wrist. ca1 21:47 Ja Austin PA is PHCP. jr8 21:47 Bal Dowling MD is Attending Physician. jr8 22:34 Angela Wiley, RN is Primary Nurse. cr4 22:36 COVID swab sent to lab. Inserted saline lock: 20 gauge in left forearm, using aseptic rr5 technique. Blood collected. 22:37 Patient has correct armband on for positive identification. Bed in low position. Call rr5 light in reach. monitor worker on. Pulse ox on. NIBP on. 22:57 XRAY Chest (1 view) In Process Unspecified. EDMS 05/14 00:20 No provider procedures requiring assistance completed. intact, bleeding controlled, No cr4 redness/swelling at site. Patient maintains SpO2 saturation greater than 95% on room air. Administered Medications: No medications were administered Outcome: 05/13 23:24 Discharge ordered by . jr8 05/14 00:27 Patient left the ED. rr5 00:27 Discharged to home ambulatory. cr4 00:27 Condition: good 00:27 Discharge instructions given to patient, Instructed on patient would be called with COVID-19 results. Demonstrated understanding of instructions, follow-up care. Signatures: Dispatcher [employer] EDGA Angela Wiley, RN RN cr4 Ja Austin PA PA jr8 Anoop Zheng RN RN rr5 Kim Tillman RN RN ca1 Shannan Kearney cl3 Corrections: (The following items were deleted from the chart) 04:58 04 23:00 Reassessment: No changes from previously documented assessment. Patient cr4 and/or family updated on plan of care and expected duration. Pain level reassessed. Patient states feeling better. cr4
--- NOTE | 2020-05-14 09:20 | RAD REPORT ---
EXAM DESCRIPTION: RAD - Chest Single View - 05/13/2020 10:57 pm CLINICAL HISTORY: CHEST PAIN COMPARISON: Portable April 16 TECHNIQUE: AP portable chest image was obtained 05/13/2020 10:57 pm . FINDINGS: Lungs are slightly underinflated accentuating lung parenchymal findings. Heart, vasculatur e and lung markings are mildly prominent. A mild failure or volume overload is possible. Trachea is m idline. No peripheral consolidation or mass lesion. No measurable pleural effusion and no pneumothora x. No acute bony abnormality seen. No acute aortic findings suspected. IMPRESSION: Heart, vasculature and lung markings are all prominent. Pattern is not substantially different from April 16 but could still represent a mild failure or volum e overload.
[2020-05-14 20:13] VITALS: BP 113/64; TEMP 97.3; O2SAT 99
== END 2020-05-14 00:27 | disposition home or self-care (01) ==
LOC: ER 19:56
DX: R07.89 Other chest pain (principal); I10 Essential (primary) hypertension; F17.210 Nicotine dependence, cigarettes, uncomplicated; Z20.822 Contact with and (suspected) exposure to COVID-19; Z88.2 Allergy status to sulfonamides
CPT/HCPCS: 36415; 71045; 80048; 80076; 83735; 83880; 84484; 85025; 85610; 93005; 99285; U0003

== ENCOUNTER 2020-07-07 20:29 | Emergency (ER) | payer SELFPAY ==
--- OUTSIDE RECORDS SUMMARY | 2020-07-07 20:43 | XMS REPORT | Continuity of Care Document ---
:1975 Author Organization [facility] t Address [address] [place] [address] Care Team Providers Name Role Phone Unavailable [...] VERY HIGH.........>/ = 190 mg/dL Comments to Local Government Legislator: ADD TO AM LABSLIPID PROFILE (CORONARY RISK)2018-07-20 [...] MG/DL 0-99 code = LDL) Comments to Local Government Legislator: ADD TO AM LABSPROTHROMBIN [id number] 06:24:00 Test Item Value Reference Range Interpretation [...] karla embolism. 3.0 - 4.5 Comments to Local Government Legislator: NURSE WILL BRING SPECIMEN TO LABPTT ACTIVATED 2018-07-20 06:24:00 Test Item Value Reference Range Interpretation Comments PTT ACTIVATED (test code = APTT) 29.3 SECONDS 22.0-33.0 N Comments to Local Government Legislator: NURSE WILL BRING SPECIMEN TO [facility] 2018-07-20 06:13:00 Test Item [...] 9.6 MG/DL 8.4-10.2 N CA) Comments to Local Government Legislator: NURSE WILL BRING SPECIMEN TO LAB Comments to Local Government Legislator: NURSE WILL BRING SPECIMEN TO [id number] 06:13:00 Test Item Value Reference Range Interpretation Comments MAGNESIUM (test code = MAG) 2.2 MG/DL 1.6-2.3 N Comments to Local Government Legislator: NURSE WILL BRING SPECIMEN TO LAB Comments to Local Government Legislator: NURSE WILL BRING SPECIMEN TO LABCBC W/AUTO [id number] 06:02:00 Test Item Value Reference Range Interpretation [...]
[2020-07-08 00:31] LABS: Urine Blood 2+ (Negative); Urine Glucose Negative (Negative); Urine Protein Negative (Negative); Urine Specific Gravity >=1.030 (1.005-1.030)
[2020-07-08] MEDS ORDERED: DIPHENHYDRAMINE 50 MG/ML VIAL ONE (00:43)
[2020-07-08] MEDS ORDERED: NA CHLORIDE 0.9% 1,000 ML ONE (00:43)
[2020-07-08] MEDS ORDERED: METOCLOPRAMIDE 10 MG/2mL INJ ONE (00:43)
[2020-07-08] MEDS ORDERED: KETOROLAC 30 MG/ML INJ ONE (00:43)
[2020-07-08 00:44] LABS: Absolute Lymphocytes (CBC) 2.7 K/uL (0.7-4.9); Basophils % 0.3 % (0-1.3); Hematocrit 36.4 % (36.0-45.0); Lymphocytes % 23.1 % (15.3-44.8); MPV 9.7 fL (7.6-11.3); RBC Red Blood Cell Count 4.55 M/uL (3.86-4.86)
[2020-07-08 00:57] LABS: ALT/SGPT 81 U/L (12-78); AST/SGOT 38 U/L (15-37); Albumin 3.8 g/dL (3.4-5.0); Alkaline Phosphatase 166 U/L (45-117); BUN Blood Urea Nitrogen 11 mg/dL (7-18); Bicarbonate 29 mmol/L (21-32); Bilirubin Direct < 0.1 mg/dL (0-0.2); Bilirubin Total 0.3 mg/dL (0.2-1.0); Glucose Level 96 mg/dL (74-106); Lipase 166 U/L (73-393); Potassium 3.6 mmol/L (3.5-5.1); Protein, Total 8.2 g/dL (6.4-8.2); Sodium Level 140 mmol/L (136-145)
--- NOTE | 2020-07-08 01:24 | EDPHYS ---
Physician Documentation [facility] Name: Shivani Lagunas Age: 45 yrs Sex: Female : 1975 Arrival Date: 07/07/2020 Time: 21:05 Bed 15 Private MD: ED Physician Nataliya Bowling HPI: 07/08 00:17 This 45 yrs old Female presents to ER via Ambulatory with complaints of ma2 Headache, Jaw Pain, Ear Pain, Nose Pain. 00:17 Onset: The symptoms/episode began/occurred gradually, 3 day(s) ago. Severity of ma2 symptoms: At its worst the pain was mild, in the emergency department the pain is unchanged. Headache History: The patient has had previous headaches and this one is similar to previous episodes. The patient has experienced similar episodes in the past. gradual headache, hx of migrain . BURRER HAND: 07/07 21:09 LMP 07/02/2020 vg1 Historical: - Allergies: 21:14 Sulfa (Sulfonamide Antibiotics); vg1 - Home Meds: 21:14 allopurinol 100 mg Oral tab 1 tab once daily [Active]; alprazolam 0.5 mg Oral tab vg1 [Active]; atorvastatin 10 mg Oral tab 1 tab once daily [Active]; clonazepam 2 mg Oral tab nightly [Active]; duloxetine 90 mg Oral cpDR 1 cap once daily [Active]; lithium carbonate 600 mg Oral cap daily [Active]; losartan 100 mg Oral tab 1 tab once daily [Active]; propranolol 80 mg Oral tab 1 tab 2 times per day [Active]; spironolactone 25 mg Oral tab 1 tab once daily [Active]; zolpidem 10 mg Oral tab once daily [Active]; - PMHx: 21:14 Anxiety; Arrythmia; Bipolar disorder; depression, anxiety, insomnia; fatty liver; Gout; vg1 High Cholesterol; Hypertension; - Immunization history:: Adult Immunizations up to date, Client reports receiving the 2nd dose of the Covid vaccine. - Social history:: Smoking status: Patient denies any tobacco usage or history of. Patient uses Patient/guardian denies using alcohol, street drugs, The patient lives with family. - Family history:: not pertinent. ROS: 07/08 00:17 Constitutional: Negative for fever, chills, and weight loss. ma2 All other systems are negative. Exam: 00:17 Constitutional: This is a well developed, well nourished patient who is awake, alert, ma2 and in no acute distress. Head/Face: Normocephalic, atraumatic. Eyes: Pupils equal round and reactive to light, extra-ocular motions intact. Lids and lashes normal. Conjunctiva and sclera are non-icteric and not injected. Cornea within normal limits. Periorbital areas with no swelling, redness, or edema. ENT: Nares patent. No nasal discharge, no septal abnormalities noted. Tympanic membranes are normal and external auditory canals are clear. Oropharynx with no redness, swelling, or masses, exudates, or evidence of obstruction, uvula midline. Mucous membranes moist. Neck: Trachea midline, no thyromegaly or masses palpated, and no cervical lymphadenopathy. Supple, full range of motion without nuchal rigidity, or vertebral point tenderness. No Meningismus. Chest/axilla: Normal chest wall appearance and motion. Nontender with no deformity. No lesions are appreciated. Cardiovascular: Regular rate and rhythm with a normal S1 and S2. No gallops, murmurs, or rubs. Normal PMI, no JVD. No pulse deficits. Respiratory: Lungs have equal breath sounds bilaterally, clear to auscultation and percussion. No rales, rhonchi or wheezes noted. No increased work of breathing, no retractions or nasal flaring. Abdomen/GI: Soft, non-tender, with normal bowel sounds. No distension or tympany. No guarding or rebound. No evidence of tenderness throughout. Back: No spinal tenderness. No costovertebral tenderness. Full range of motion. Skin: Warm, dry with normal turgor. Normal color with no rashes, no lesions, and no evidence of cellulitis. MS/ Extremity: Pulses equal, no cyanosis. Neurovascular intact. Full, normal range of motion. Neuro: Awake and alert, GCS 15, oriented to person, place, time, and situation. Cranial nerves II-XII grossly intact. Motor strength 5/5 in all extremities. Sensory grossly intact. Cerebellar exam normal. Normal gait. Vital Signs: 07/07 21:09 BP 137 / 78; Pulse 75; Resp 16; Temp 97.8; Pulse Ox 100% ; Weight 97.52 kg; Height 5 vg1 ft. 6 in. (167.64 cm); Pain 10/; 07/08 00:00 BP 113 / 58; Pulse 57; Resp 18; Pulse Ox 98% on R/A; wh 01:30 BP 105 / 60; Pulse 56; Resp 18; Pulse Ox 99% on R/A; wh 07/07 21:09 Body Mass Index 34.70 (97.52 kg, 167.64 cm) [facility]: 07/07 23:36 Patient medically screened. [facility] 07/08 00:17 Differential diagnosis: hyponatremia, sinusitis, tension headache, trigeminal ma2 neuralgia. Data reviewed: vital signs, nurses notes. 01:23 Response to treatment: the patient's symptoms have resolved after treatment. [facility] 07/08 00:05 Order name: Basic Metabolic Panel; Complete Time: 01:16 hi2 07/08 00:05 Order name: CBC with Diff; Complete Time: 01:16 hi2 07/07 21:19 Order name: CT Head Brain wo Cont kb 07/08 00:05 Order name: Hepatic Function; Complete Time: 01:16 hi2 07/08 00:05 Order name: Lipase; Complete Time: 01:16 hi2 07/08 00:32 Order name: Urine Dipstick-Ancillary; Complete Time: 00:32 EDMS 07/08 00:05 Order name: IV Saline Lock; Complete Time: 00:32 ma2 07/08 00:05 Order name: Labs collected and sent; Complete Time: 00:32 hi2 07/08 00:05 Order name: Urine Dipstick-Ancillary (obtain specimen); Complete Time: 00:32 ma2 Administered Medications: 00:25 Drug: NS 0.9% 1000 ml Route: IV; Rate: 1 bolus; Site: right antecubital; 01:58 Follow up: Response: No adverse reaction; IV Status: Completed infusion 00:27 Drug: TORadol (ketorolac) 30 mg Route: IVP; Site: right antecubital; 01:58 Follow up: Response: No adverse reaction; Marked relief of symptoms 00:29 Drug: Benadryl (diphenhydrAMINE) 25 mg Route: IVP; Site: right antecubital; 01:58 Follow up: Response: No adverse reaction; Marked relief of symptoms 00:31 Drug: Reglan (metoCLOPramide) 20 mg Route: IVP; Site: right antecubital; 01:58 Follow up: Response: No adverse reaction; Marked relief of symptoms Disposition: 07/08/20 01:24 Discharged to Home. Impression: Migraine without aura. - Condition is Stable. - Discharge Instructions: Migraine Headache, Migraine Headache, [id number]. - Prescriptions for Reglan 10 mg Oral Tablet - take 1 tablet by ORAL route every 6 hours . take 30 minutes before meals and at bedtime; 100 tablet. Diclofenac Sodium 75 mg Oral Tablet Sustained Release - take 1 tablet by ORAL route 2 times per day; 30 tablet. - Medication Reconciliation Form, Thank You Letter, Antibiotic Education, Prescription Opioid Use form. - Follow up: Private Physician; When: Tomorrow; Reason: If symptoms return, Continuance of care. Signatures: Dispatcher [employer] EDMS Amparo Alvarado, RN RN Nataliya Bowling MD MD ma2 Fiona Salas RN RN vg1 Corrections: (The following items were deleted from the chart) 01:59 01:24 07/08/2020 01:24 Discharged to Home. Impression: Migraine without aura. Condition wh is Stable. Discharge Instructions: Migraine Headache, [id number]. Prescriptions for Reglan 10 mg Oral Tablet - take 1 tablet by ORAL route every 6 hours . take 30 minutes before meals and at bedtime; 100 tablet, Diclofenac Sodium 75 mg Oral Tablet Sustained Release - take 1 tablet by ORAL route 2 times per day; 30 tablet. and Forms are Medication Reconciliation Form, Thank You Letter, Antibiotic Education, Prescription Opioid Use. Follow up: Private Physician; When: Tomorrow; Reason: If symptoms return, Continuance of care. maMarcell
--- NOTE | 2020-07-08 01:24 | ER ---
Nurse's Notes [facility] Name: Shivani Lagunas Age: 45 yrs Sex: Female : 1975 Arrival Date: 07/07/2020 Time: 21:05 Bed 15 Private MD: Diagnosis: Migraine without aura Presentation: 07/07 21:09 Chief complaint: Patient states: Pt states h/a, jaw pain, ear pain and nasal pain for vg1 about 2 weeks. Stated blurred vision began about 3 days ago. Denies NVD. Denies any injury to head. Stated had a hx of h/a due to BP before having BP under control. Coronavirus screen: Client denies travel out of the [place] in the last 14 days. Ebola Screen: Patient negative for fever greater than or equal to 101.5 degrees Fahrenheit, and additional compatible Ebola Virus Disease symptoms. Initial Sepsis Screen: Does the patient meet any 2 criteria? No. Patient's initial sepsis screen is negative. Does the patient have a suspected source of infection? No. Patient's initial sepsis screen is negative. Risk Assessment: Do you want to hurt yourself or someone else?. Onset of symptoms was June 23, 2020. 21:09 Method Of Arrival: Ambulatory vg1 21:09 Acuity: ALICIA 3 vg1 Triage Assessment: 21:09 Headache History: The patient has had previous headaches and this one is more severe vg1 than previous episodes. General: Appears in no apparent distress. uncomfortable, Behavior is calm, cooperative. Pain: Complains of pain in head, jaw, righta and left ears, nose Pain currently is 10 out of 10 on a pain scale. Pain began about two weeks ago Also complains of decreased appetite. Neuro: Level of Consciousness is awake, alert, obeys commands, Oriented to person, place, time, situation. 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 LMP 07/02/2020 vg1 Historical: - Allergies: 21:14 Sulfa (Sulfonamide Antibiotics); vg1 - Home Meds: 21:14 allopurinol 100 mg Oral tab 1 tab once daily [Active]; alprazolam 0.5 mg Oral tab vg1 [Active]; atorvastatin 10 mg Oral tab 1 tab once daily [Active]; clonazepam 2 mg Oral tab nightly [Active]; duloxetine 90 mg Oral cpDR 1 cap once daily [Active]; lithium carbonate 600 mg Oral cap daily [Active]; losartan 100 mg Oral tab 1 tab once daily [Active]; propranolol 80 mg Oral tab 1 tab 2 times per day [Active]; spironolactone 25 mg Oral tab 1 tab once daily [Active]; zolpidem 10 mg Oral tab once daily [Active]; - PMHx: 21:14 Anxiety; Arrythmia; Bipolar disorder; depression, anxiety, insomnia; fatty liver; Gout; vg1 High Cholesterol; Hypertension; - Immunization history:: Adult Immunizations up to date, Client reports receiving the 2nd dose of the Covid vaccine. - Social history:: Smoking status: Patient denies any tobacco usage or history of. Patient uses Patient/guardian denies using alcohol, street drugs, The patient lives with family. - Family history:: not pertinent. Screenin:00 Abuse screen: Denies threats or abuse. Denies injuries from another. Nutritional wh screening: No deficits noted. Tuberculosis screening: No symptoms or risk factors identified. Fall Risk None identified. Assessment: 23:00 General: Appears in no apparent distress. Behavior is calm, cooperative, appropriate wh for age. Pain: Complains of pain in headache. Neuro: Level of Consciousness is awake, alert, obeys commands, Oriented to person, place, time, situation, Appropriate for age Reports headache. Cardiovascular: Capillary refill < 3 seconds. Respiratory: Airway is patent Respiratory effort is even, unlabored, Respiratory pattern is regular, symmetrical. GI: Abdomen is flat, non-distended. : No signs and/or symptoms were reported regarding the genitourinary system. EENT: No signs and/or symptoms were reported regarding the EENT system. Derm: Skin is intact, is healthy with good turgor, Skin is pink, warm \T\ dry. normal. Musculoskeletal: Circulation, motion, and sensation intact. 07/08 00:30 Reassessment: Patient appears in no apparent distress at this time. No changes from previously documented assessment. Patient and/or family updated on plan of care and expected duration. Pain level reassessed. Patient is alert, oriented x 3, equal unlabored respirations, skin warm/dry/pink. 01:55 Reassessment: Patient appears in no apparent distress at this time. Patient and/or family updated on plan of care and expected duration. Pain level reassessed. Patient is alert, oriented x 3, equal unlabored respirations, skin warm/dry/pink. Patient states feeling better. Patient states symptoms have improved. Vital Signs: 07/07 21:09 BP 137 / 78; Pulse 75; Resp 16; Temp 97.8; Pulse Ox 100% ; Weight 97.52 kg; Height 5 1 ft. 6 in. (167.64 cm); Pain 10/10; 07/08 00:00 BP 113 / 58; Pulse 57; Resp 18; Pulse Ox 98% on R/A; wh 01:30 BP 105 / 60; Pulse 56; Resp 18; Pulse Ox 99% on R/A; wh 07/07 21:09 Body Mass Index 34.70 (97.52 kg, 167.64 cm) 1 ED Course: 07/07 21:05 Patient arrived in ED. cf2 21:09 Arm band placed on. vg1 21:13 Triage completed. vg1 21:53 CT Head Brain wo Cont In Process Unspecified. EDMS 23:00 Patient has correct armband on for positive identification. Bed in low position. Call light in reach. Side rails up X 1. Pulse ox on. NIBP on. 23:07 Amparo Alvarado, RN is Primary Nurse. 23:15 Inserted saline lock: 22 gauge in right antecubital area, using aseptic technique. Blood collected. 23:35 Nataliya Bowling MD is Attending Physician. [facility] 07/08 01:57 No provider procedures requiring assistance completed. IV discontinued, intact, bleeding controlled, No redness/swelling at site. Administered Medications: 00:25 Drug: NS 0.9% 1000 ml Route: IV; Rate: 1 bolus; Site: right antecubital; 01:58 Follow up: Response: No adverse reaction; IV Status: Completed infusion 00:27 Drug: TORadol (ketorolac) 30 mg Route: IVP; Site: right antecubital; 01:58 Follow up: Response: No adverse reaction; Marked relief of symptoms 00:29 Drug: Benadryl (diphenhydrAMINE) 25 mg Route: IVP; Site: right antecubital; 01:58 Follow up: Response: No adverse reaction; Marked relief of symptoms 00:31 Drug: Reglan (metoCLOPramide) 20 mg Route: IVP; Site: right antecubital; 01:58 Follow up: Response: No adverse reaction; Marked relief of symptoms Outcome: 01:24 Discharge ordered by . maurice 01:58 Discharged to home ambulatory. 01:58 Condition: stable 01:58 Discharge instructions given to patient, Instructed on discharge instructions, follow up and referral plans. medication usage, POC Demonstrated understanding of instructions, follow-up care, medications, POC Prescriptions given X 2. 01:59 Patient left the ED. Signatures: Dispatcher [employer] EDMS Amparo Alvarado, RN RN Nataliya Bowling MD MD ma2 [place], [place] [facility] Fiona Salas RN RN vg1 Corrections: (The following items were deleted from the chart) 07/07 21:16 21:09 Chief complaint: Patient states: Pt states h/a, jaw pain, ear pain and nasal pain vg1 for about 2 weeks. Stated blurred vision began about 3 days ago. Denies NVD. Denies any injury to head. vg1 21:16 21:09 Acuity: ALICIA 4 vg1 vg1
[2020-07-08 03:27] VITALS: TEMP 97.8
[2020-07-08 03:33] VITALS: BP 105/60; O2SAT 99
--- NOTE | 2020-07-08 10:27 | RAD REPORT ---
EXAM DESCRIPTION: Head Brain Wo Cont CLINICAL HISTORY: 45 years Female HEADACHE COMPARISON: None. TECHNIQUE: Contiguous axial CT images obtained through the brain without IV contrast. This exam was performed according to our department optimization program which includes automated exp osure control, adjustment of the mA and/or kv according to patient size and/or use of iterative recon struction technique. FINDINGS: The ventricles and sulci appear unremarkable. No abnormal areas of decreased density are identified. No mass lesions. No acute hemorrhage. No fluid or significant mucosal thickening in the visualized paranasal sinuses. No depressed calvarial fractures. IMPRESSION: No acute intracranial abnormality is identified. Electronically signed by: Jaron Miller MD 07/07/2020 10:28 PM CDT Due to temporary technical issues with the PACS/Fluency reporting system, reports are being signed by the in house radiologist without review as a courtesy to ensure prompt reporting. The interpreting r adiologist is fully responsible for the content of the report.
== END 2020-07-08 01:59 | disposition home or self-care (01) ==
LOC: ER 20:29
DX: G43.009 Migraine without aura, not intractable, without status migrainosus (principal); F31.9 Bipolar disorder, unspecified; I10 Essential (primary) hypertension; E78.00 Pure hypercholesterolemia, unspecified; Z88.2 Allergy status to sulfonamides
CPT/HCPCS: 36415; 70450; 80048; 80076; 81003; 83690; 85025; 96361; 96374; 96375; 99284; J1200; J2765; J7030

== ENCOUNTER 2020-09-12 12:06 | Emergency (ER) | payer SELFPAY ==
--- OUTSIDE RECORDS SUMMARY | 2020-09-12 12:08 | XMS REPORT | Continuity of Care Document ---
:[address] [facility] t Address [address] [place] [address] [address]. [address] [place] [address] Care Team Providers Name Role Phone Milton CREW LEADER Attending Clinician Doctor Unassigned, Name Attending Clinician Unavailable Payers Payer Name Policy Type Policy [...] Date/Time Type Type Clinicians Facility Department ID 2020-09-02 2020-09-02 Emergency Milton [facility] [id number] 16:12:00 20:21:00 Patti Wallace [id number] [place] [id number] [place] [id number] 2020-09-02 2020-09-02 Orders Doctor CORT[facility]S [id number] 00:00:00 00:00:00 Only UnassQUITA richard [id number] [place] [facility] [id number] [id number] Results Test Description Test Time Test Comments [...] VERY HIGH.........>/ = 190 mg/dL Comments to Water Quality Assistant: ADD TO AM LABSLIPID PROFILE (CORONARY RISK)2018-07-20 [...] MG/DL 0-99 code = LDL) Comments to Water Quality Assistant: ADD TO AM LABSPROTHROMBIN [id number] 06:24:00 Test Item Value Reference Range Interpretation [...] karla embolism. 3.0 - 4.5 Comments to Water Quality Assistant: NURSE WILL BRING SPECIMEN TO LABPTT ACTIVATED 2018-07-20 06:24:00 Test Item Value Reference Range Interpretation Comments PTT ACTIVATED (test code = APTT) 29.3 SECONDS 22.0-33.0 N Comments to Water Quality Assistant: NURSE WILL BRING SPECIMEN TO LABBASIC METABOLIC [...] 9.6 MG/DL 8.4-10.2 N CA) Comments to Water Quality Assistant: NURSE WILL BRING SPECIMEN TO LAB Comments to Water Quality Assistant: NURSE WILL BRING SPECIMEN TO [id number] 06:13:00 Test Item Value Reference Range Interpretation Comments MAGNESIUM (test code = MAG) 2.2 MG/DL 1.6-2.3 N Comments to Water Quality Assistant: NURSE WILL BRING SPECIMEN TO LAB Comments to Water Quality Assistant: NURSE WILL BRING SPECIMEN TO LABCBC W/AUTO [id number] 06:02:00 Test Item Value Reference Range Interpretation [...]
[2020-09-12] MEDS ORDERED: HYDROCODONE/APAP 7.5/325 MG TAB ONE (15:40)
--- NOTE | 2020-09-12 17:06 | ER ---
Nurse's Notes [facility] Name: Shivani Lagunas Age: 45 yrs Sex: Female : 1975 Arrival Date: 09/12/2020 Time: 12:15 Bed 18 Private MD: Diagnosis: Other acute sinusitis Presentation: 09/12 12:19 Chief complaint: Patient states: PÉREZ since , some nausea. Body aches, chills, ll1 slight cough since Sunday. No appetite. Burning/watery eyes and sore throat. Coronavirus screen: Client denies travel out of the [place] in the last 14 days. chills, cough unrelated to allergies, difficulty breathing, fatigue, headache, muscle pain, nausea, shaking with chills, sore throat, Client presents with at least one sign or symptom that may indicate coronavirus-19. Standard/surgical mask placed on the client. Ebola Screen: Patient denies travel to an Ebola-affected area in the 21 days before illness onset. Initial Sepsis Screen: Does the patient meet any 2 criteria? HR > 90 bpm. No. Patient's initial sepsis screen is negative. Does the patient have a suspected source of infection? Yes: Productive cough/pneumonia. Risk Assessment: Do you want to hurt yourself or someone else? Patient reports no desire to harm self or others. Onset of symptoms was September 09, 2020. 12:19 Method Of Arrival: Ambulatory [facility] 12:19 Acuity: ALICIA 3 ll1 Triage Assessment: 14:50 Headache History: The patient has had previous headaches and this one is similar to bp previous episodes. General: Appears distressed, uncomfortable, Behavior is cooperative, appropriate for age, anxious. Pain: Pain currently is 5 out of 10 on a pain scale. Pain began 1 day ago. Also complains of no other associated symptoms. EENT: No deficits noted. Neuro: Level of Consciousness is awake, alert, obeys commands, Oriented to Appropriate for age. Cardiovascular: No deficits noted. Respiratory: No deficits noted. GI: No signs and/or symptoms were reported involving the gastrointestinal system. : No signs and/or symptoms were reported regarding the genitourinary system. Derm: No deficits noted. Musculoskeletal: No deficits noted. Historical: - Allergies: 12:22 Sulfa (Sulfonamide Antibiotics); ll1 - PMHx: 12:22 Bipolar disorder; depression, anxiety, insomnia; fatty liver; Arrythmia; Gout; High ll1 Cholesterol; Anxiety; Hypertension; - PSHx: 12:22 None; ll1 - Immunization history:: Client reports receiving the 2nd dose of the Covid vaccine, Flu vaccine is not up to date. - Social history:: Smoking status: Patient reports the use of cigarette tobacco products, denies chronic smoking, but will smoke occasionally. Screenin:00 Abuse screen: Denies threats or abuse. Denies injuries from another. Nutritional bp screening: No deficits noted. Tuberculosis screening: No symptoms or risk factors identified. Fall Risk None identified. Assessment: 14:50 General: SEE TRIAGE NOTE. bp 14:50 Pain: Complains of pain in GENERALIZED. bp 16:30 Reassessment: No changes from previously documented assessment. Patient and/or family bp updated on plan of care and expected duration. Pain level reassessed. Patient is alert, oriented x 3, equal unlabored respirations, skin warm/dry/pink. 17:56 Reassessment: PT D/C HOME AMBULATORY, DX WITH ACUTE SINUSITIS. bp Vital Signs: 12:19 BP 142 / 95; Pulse 98; Resp 17; Temp 98.4; Pulse Ox 98% ; Weight 97.52 kg; Height 5 ft. ll1 6 in. (167.64 cm); Pain 10/10; 16:00 BP 137 / 89; Pulse 95; Resp 16; Pulse Ox 98% ; bp 17:58 BP 145 / 85; Pulse 87; Resp 17; Temp 98.5; Pulse Ox 97% ; bp 12:19 Body Mass Index 34.70 (97.52 kg, 167.64 cm) ll1 ED Course: 12:15 Patient arrived in ED. ds1 12:22 Triage completed. ll1 12:22 Arm band placed on. ll1 13:27 Shantelle Peraza FNP-C is [facility]. kb 13:27 Jean Carlos Andrews MD is Attending Physician. kb 14:49 Patient placed in an exam room, on a stretcher. ll1 15:00 Patient has correct armband on for positive identification. Bed in low position. Call bp light in reach. Side rails up X2. 15:04 Nish Magallon, AMANDA is Primary Nurse. bp 15:05 Flu Sent. bp 15:05 Strep Sent. bp 17:59 No provider procedures requiring assistance completed. Patient did not have IV access bp during this emergency room visit. Administered Medications: 15:15 Drug: [place] (HYDROcodone-acetaminophen) (7.5 mg-325 mg) 1 tabs Route: PO; bp Outcome: 17:05 Discharge ordered by . kb 17:57 Patient left the ED. ll1 17:59 Discharged to home ambulatory. bp 17:59 Condition: stable 17:59 Discharge instructions given to patient, Instructed on discharge instructions, follow up and referral plans. Demonstrated understanding of instructions, follow-up care. Signatures: Shantelle Peraza, INVENTORY ADMINISTRATOR-C INVENTORY ADMINISTRATOR-Gila Sales ds1 Nish Magallon, RN RN bp Demi Kearney RN RN ll1
--- NOTE | 2020-09-12 17:06 | EDPHYS ---
Physician Documentation [facility] Name: Shivani Lagunas Age: 45 yrs Sex: Female : 1975 Arrival Date: 09/12/2020 Time: 12:15 Bed 18 Private MD: ED Physician Jean Carlos Andrews HPI: 09/12 17:17 This 45 yrs old Female presents to ER via Ambulatory with complaints of kb Headache, Body Aches and chills. 17:17 The patient or guardian reports cough, flu symptoms, myalgias. Onset: The kb symptoms/episode began/occurred 4 day(s) ago. Severity of symptoms: At their worst the symptoms were mild, moderate, in the emergency department the symptoms are unchanged. Modifying factors: The symptoms are alleviated by nothing, the symptoms are aggravated by nothing. Associated signs and symptoms: Pertinent positives: nausea, sore throat, Pertinent negatives: chest pain, diarrhea, ear ache, fever, rhinorrhea, vomiting. The patient has not experienced similar symptoms in the past. The patient has not recently seen a physician. Patient reports headache, nausea, body aches, chills, cough, sore throat since . States she came in to make sure she did not have Covid.. Historical: - Allergies: 12:22 Sulfa (Sulfonamide Antibiotics); ll1 - PMHx: 12:22 Bipolar disorder; depression, anxiety, insomnia; fatty liver; Arrythmia; Gout; High ll1 Cholesterol; Anxiety; Hypertension; - PSHx: 12:22 None; ll1 - Immunization history:: Client reports receiving the 2nd dose of the Covid vaccine, Flu vaccine is not up to date. - Social history:: Smoking status: Patient reports the use of cigarette tobacco products, denies chronic smoking, but will smoke occasionally. ROS: 17:19 Cardiovascular: Negative for chest pain, palpitations, and edema. kb 17:19 Constitutional: Positive for body aches, chills, malaise. 17:19 Respiratory: Positive for cough, Negative for dyspnea on exertion, hemoptysis, orthopnea, pleurisy, shortness of breath, sputum production, wheezing. 17:19 Abdomen/GI: Positive for nausea, Negative for abdominal pain, vomiting, diarrhea. 17:19 Neuro: Positive for headache. Exam: 17:19 Constitutional: This is a well developed, well nourished patient who is awake, alert, kb and in no acute distress. Head/Face: Normocephalic, atraumatic. ENT: Moist Mucous membranes Respiratory: Respirations even and unlabored. No increased work of breathing, no retractions or nasal flaring. Skin: Warm, dry with normal turgor. Normal color. MS/ Extremity: Pulses equal, no cyanosis. Neurovascular intact. Full, normal range of motion. Neuro: Awake and alert, GCS 15, oriented to person, place, time, and situation. Moves all extremities. Normal gait. Psych: Awake, alert, with orientation to person, place and time. Behavior, mood, and affect are within normal limits. Vital Signs: 12:19 BP 142 / 95; Pulse 98; Resp 17; Temp 98.4; Pulse Ox 98% ; Weight 97.52 kg; Height 5 ft. ll1 6 in. (167.64 cm); Pain 10/10; 16:00 BP 137 / 89; Pulse 95; Resp 16; Pulse Ox 98% ; bp 17:58 BP 145 / 85; Pulse 87; Resp 17; Temp 98.5; Pulse Ox 97% ; bp 12:19 Body Mass Index 34.70 (97.52 kg, 167.64 cm) ll1 MDM: 14:51 Patient medically screened. kb 17:16 Data reviewed: vital signs, nurses notes. Data interpreted: Pulse oximetry: on room air kb is 98 %. Interpretation: normal. Counseling: I had a detailed discussion with the patient and/or guardian regarding: the historical points, exam findings, and any diagnostic results supporting the discharge/admit diagnosis, lab results, the need for outpatient follow up, a family practitioner, to return to the emergency department if symptoms worsen or persist or if there are any questions or concerns that arise at home. 09/12 12:24 Order name: Flu ll1 09/12 12:24 Order name: Strep ll1 09/12 12:25 Order name: Influenza Screen (A ; Complete Time: 13:34 EDMS 09/12 12:25 Order name: Group A Streptococcus Rapid Sc; Complete Time: 13:34 EDMS 09/12 13:34 Order name: Throat Culture EDMA 09/12 17:00 Order name: SARS-COV-2 RT PCR; Complete Time: 17:02 EDMS Administered Medications: 15:15 Drug: [place] (HYDROcodone-acetaminophen) (7.5 mg-325 mg) 1 tabs Route: PO; bp Disposition: 18:12 Co-signature as Attending Physician, Jean Carlos Andrews MD. rn Disposition Summary: 09/12/20 17:05 Discharge Ordered Location: Home kb Condition: Stable kb Diagnosis - Other acute sinusitis kb Followup: kb - With: Emergency Department - When: As needed - Reason: Worsening of condition Followup: kb - With: Private Physician - When: 2 - 3 days - Reason: Recheck today's complaints, Continuance of care, Re-evaluation by your physician Discharge Instructions: - Discharge Summary Sheet kb - Sinusitis, Adult, [id number] kb Forms: - Medication Reconciliation Form kb - Thank You Letter kb - Antibiotic Education kb - Prescription Opioid Use kb Signatures: Dispatcher [employer] EDMS Shantelle Peraza, REAL ESTATE MANAGEMENT SPECIALIST-C REAL ESTATE MANAGEMENT SPECIALIST-Ckb Jean Carlos Andrews MD MD rn Nish Magallon RN RN Demi Armstrong RN RN ll1 Corrections: (The following items were deleted from the chart) 15:59 12:25 CORONAVIRUS ordered. EDMA EDMS
[2020-09-12 18:02] VITALS: BP 142/95; TEMP 98.4; O2SAT 98
== END 2020-09-12 17:57 | disposition home or self-care (01) ==
LOC: ER 12:06
DX: J01.80 Other acute sinusitis (principal); I10 Essential (primary) hypertension; F17.210 Nicotine dependence, cigarettes, uncomplicated; Z20.822 Contact with and (suspected) exposure to COVID-19; Z88.2 Allergy status to sulfonamides
CPT/HCPCS: 87070; 87081; 87804; 99283; U0003

== ENCOUNTER 2020-11-26 11:29 | Emergency (ER) | payer SELFPAY ==
[2020-11-26 13:11] LABS: Absolute Lymphocytes (CBC) 1.5 K/uL (0.7-4.9); Basophils % 1.5 % (0-1.3); Hematocrit 34.5 % (36.0-45.0); Lymphocytes % 19.3 % (15.3-44.8); MPV 9.7 fL (7.6-11.3); RBC Red Blood Cell Count 4.32 M/uL (3.86-4.86)
[2020-11-26 13:26] LABS: ALT/SGPT 30 U/L (12-78); AST/SGOT 17 U/L (15-37); Albumin 3.8 g/dL (3.4-5.0); Alkaline Phosphatase 140 U/L (45-117); BUN Blood Urea Nitrogen 6 mg/dL (7-18); Bicarbonate 25 mmol/L (21-32); Bilirubin Direct < 0.1 mg/dL (0-0.2); Bilirubin Total 0.3 mg/dL (0.2-1.0); Glucose Level 113 mg/dL (74-106); Lipase 125 U/L (73-393); Potassium 3.8 mmol/L (3.5-5.1); Sodium Level 138 mmol/L (136-145)
--- NOTE | 2020-11-26 14:17 | RAD REPORT ---
EXAM DESCRIPTION: CTAbdomen Pelvis W Contrast - 11/26/2020 1:50 pm CLINICAL HISTORY: ABD PAIN COMPARISON: No comparisons TECHNIQUE: CT of the abdomen and pelvis was performed. All CT scans are performed using dose optimization technique as appropriate and may include automated exposure control or mA/KV adjustment according to patient size. FINDINGS: Lower chest: No acute abnormality. Liver: No acute abnormality or suspicious lesions. Biliary: Cholecystectomy. Stomach: No significant focal abnormality. Duodenum: No significant focal abnormality. Pancreas: No significant abnormality. Spleen: No significant abnormality. Adrenal: No suspicious lesions. Kidney/ureter: No hydronephrosis. No renal calculi. Retroperitoneum: No retroperitoneal adenopathy. Vascular: No aneurysm. Bowel: No significant focal abnormality. Peritoneum: In the left hemiabdomen associated with the descending colon, there is some slight strand ing as well as small foci of mesenteric edema within the omentum. See image 53, series 501. Bladder: Grossly unremarkable. Reproductive: No adnexal masses. Bones: No acute fracture. Other: n/a IMPRESSION: Small new focal area of stranding along the descending colon that is nonspecific. This c ould represent an omental infarct or, much less likely, very early/mild diverticulitis. No other acut e process identified.
--- NOTE | 2020-11-26 14:55 | EDPHYS ---
Physician Documentation [facility] Name: Shivani Lagunas Age: 45 yrs Sex: Female : 1975 Arrival Date: 11/26/2020 Time: 11:45 Bed 24 Private MD: ED Physician Alexander Kahn HPI: 11/26 16:00 This 45 yrs old Female presents to ER via Ambulatory with complaints of kb Vomiting/Diarrhea. 16:00 The patient presents to the emergency department with nausea, vomiting, diarrhea, kb abdominal pain. Onset: The symptoms/episode began/occurred 2 month(s) ago. Possible causes: unknown. The symptoms are aggravated by nothing. The symptoms are alleviated by nothing. Associated signs and symptoms: Pertinent positives: abdominal pain, diarrhea, nausea, vomiting. Severity of symptoms: At their worst the symptoms were moderate in the emergency department the symptoms are unchanged. The patient has not experienced similar symptoms in the past. The patient has not recently seen a physician. Pt reports n/v/d and upper abd pain for 2 months. States she went to [place] last week and symptoms got worse. PROJECT LANDSCAPE ARCHITECT: 11:50 LMP 11/15/2020 jl7 Historical: - Allergies: 11:50 Sulfa (Sulfonamide Antibiotics); jl7 - Home Meds: 11:50 allopurinol 100 mg Oral tab 1 tab once daily [Active]; alprazolam 0.5 mg Oral tab jl7 [Active]; atorvastatin 10 mg Oral tab 1 tab once daily [Active]; clonazepam 2 mg Oral tab nightly [Active]; duloxetine 90 mg Oral cpDR 1 cap once daily [Active]; lithium carbonate 600 mg Oral cap daily [Active]; losartan 100 mg Oral tab 1 tab once daily [Active]; propranolol 80 mg Oral tab 1 tab 2 times per day [Active]; spironolactone 25 mg Oral tab 1 tab once daily [Active]; zolpidem 10 mg Oral tab once daily [Active]; - PMHx: 11:50 Anxiety; Arrythmia; Bipolar disorder; depression, anxiety, insomnia; fatty liver; Gout; jl7 High Cholesterol; Hypertension; - PSHx: 11:50 section; Cholecystectomy; jl7 - Immunization history:: Adult Immunizations up to date, Client reports receiving the 2nd dose of the Covid vaccine, Moderna. - Social history:: Smoking status: Patient denies any tobacco usage or history of. ROS: 16:03 Constitutional: Negative for fever, chills, and weight loss. kb 16:03 Abdomen/GI: Positive for abdominal pain, nausea, vomiting, and diarrhea, Negative for constipation. 16:03 All other systems are negative. Exam: 16:03 Constitutional: This is a well developed, well nourished patient who is awake, alert, kb and in no acute distress. Head/Face: Normocephalic, atraumatic. ENT: Moist Mucous membranes Cardiovascular: Regular rate and rhythm with a normal S1 and S2. No gallops, murmurs, or rubs. No pulse deficits. Respiratory: Respirations even and unlabored. No increased work of breathing, no retractions or nasal flaring. Skin: Warm, dry with normal turgor. Normal color. MS/ Extremity: Pulses equal, no cyanosis. Neurovascular intact. Full, normal range of motion. Neuro: Awake and alert, GCS 15, oriented to person, place, time, and situation. Moves all extremities. Normal gait. Psych: Awake, alert, with orientation to person, place and time. Behavior, mood, and affect are within normal limits. 16:03 Abdomen/GI: Inspection: abdomen appears normal, Bowel sounds: normal, in all quadrants, Palpation: soft, in all quadrants, mild abdominal tenderness, in the right upper quadrant and left upper quadrant. Vital Signs: 11:48 BP 126 / 82; Pulse 68; Resp 17; Temp 97.6; Pulse Ox 99% ; jl7 12:35 BP 114 / 64 RA Supine; Pulse 66; Resp 18; Pulse Ox 99% on R/A; Pain 6/10; ld1 12:38 BP 127 / 82 RA Sitting; Pulse 74 RA; ld1 12:41 BP 127 / 83 Standing; Pulse 78 RA; ld1 14:02 BP 120 / 62; Pulse 82; Resp 18; Pulse Ox 99% on R/A; ld1 14:35 BP 123 / 67; Pulse 76; Resp 17; Pulse Ox 98% on R/A; ld1 MDM: 11:50 Patient medically screened. kb 14:51 Data reviewed: vital signs, nurses notes. Data interpreted: Pulse oximetry: on room air kb is 99 %. Interpretation: normal. Counseling: I had a detailed discussion with the patient and/or guardian regarding: the historical points, exam findings, and any diagnostic results supporting the discharge/admit diagnosis, lab results, radiology results, the need for outpatient follow up, a family practitioner, a general surgeon, to return to the emergency department if symptoms worsen or persist or if there are any questions or concerns that arise at home. Physician consultation: Lyle Godoy MD was contacted at 14:51, regarding consult, patient's condition, and will see patient in office. 11/26 11:51 Order name: Basic Metabolic Panel; Complete Time: 13:34 kb 11/26 11:51 Order name: CBC with Diff; Complete Time: 13:34 kb 11/26 11:51 Order name: Hepatic Function; Complete Time: 13:34 kb 11/26 11:51 Order name: Lipase; Complete Time: 13:34 kb 11/26 11:51 Order name: CT Abd/Pelvis - IV Contrast Only; Complete Time: 14:23 kb 11/26 13:54 Order name: CREATININE WHOLE BLOOD; Complete Time: 14:00 EDMS 11/26 11:51 Order name: IV Saline Lock; Complete Time: 12:58 kb 11/26 11:51 Order name: Labs collected and sent; Complete Time: 12:58 kb 11/26 11:51 Order name: Orthostatics; Complete Time: 12:52 kb Administered Medications: No medications were administered Disposition: 11/27 12:50 Co-signature as Attending Physician, Alexander Kahn MD I agree with the assessment and kdr plan of care. Disposition Summary: 11/26/20 14:54 Discharge Ordered Location: Home kb Condition: Stable kb Diagnosis - Abdominal pain, unspecified kb - Nausea with vomiting, unspecified kb - Diarrhea, unspecified kb Followup: kb - With: Emergency Department - When: As needed - Reason: Worsening of condition Followup: kb - With: Private Physician - When: 2 - 3 days - Reason: Recheck today's complaints, Continuance of care, Re-evaluation by your physician Discharge Instructions: - Discharge Summary Sheet kb - Diverticulitis, [id number] kb Forms: - Medication Reconciliation Form kb - Thank You Letter kb - Antibiotic Education kb - Prescription Opioid Use kb Prescriptions: - Cipro 500 mg Oral Tablet - take 1 tablet by ORAL route every 12 hours for 10 days; 20 tablet; Refills: 0, kb Product Selection Permitted - Flagyl 500 mg Oral Tablet - take 1 tablet by ORAL route every 8 hours for 10 days; 30 tablet; Refills: 0, kb Product Selection Permitted - Zofran 4 mg Oral Tablet - take 1 tablet by ORAL route every 6 hours As needed; 20 tablet; Refills: 0, kb Product Selection Permitted - dicyclomine 20 mg Oral Tablet - take 1 tablet by ORAL route 4 times per day As needed; 20 tablet; Refills: 0, kb Product Selection Permitted Signatures: Dispatcher [employer] Shantelle Dominguez, [employer]-Alexander Zavaleta MD MD kdr Leal, Jahala, RN RN jl7
--- NOTE | 2020-11-26 14:55 | ER ---
Nurse's Notes [facility] Name: Shivani Lagunas Age: 45 yrs Sex: Female : 1975 Arrival Date: 11/26/2020 Time: 11:45 Bed 24 Private MD: Diagnosis: Abdominal pain, unspecified;Nausea with vomiting, unspecified;Diarrhea, unspecified Presentation: 11/26 11:48 Chief complaint: Patient states: Diarrhea and vomiting x 2 months, unable to eat, jl7 started feeling lightheaded and weak this week, denies abdominal pain. Coronavirus screen: At this time, the client does not indicate any symptoms associated with coronavirus-19. Ebola Screen: No symptoms or risks identified at this time. Initial Sepsis Screen: Does the patient meet any 2 criteria? No. Patient's initial sepsis screen is negative. Does the patient have a suspected source of infection? No. Patient's initial sepsis screen is negative. Risk Assessment: Do you want to hurt yourself or someone else? Patient reports no desire to harm self or others. Onset of symptoms was September 2020. 11:48 Method Of Arrival: Ambulatory jl7 11:48 Acuity: ALICIA 3 jl7 Triage Assessment: 11:50 General: Appears in no apparent distress. uncomfortable, Behavior is calm, cooperative, jl7 appropriate for age. Pain: Denies pain. GI: Reports diarrhea, vomiting. UNPAID INTERN: 11:50 LMP 11/15/2020 jl7 Historical: - Allergies: 11:50 Sulfa (Sulfonamide Antibiotics); jl7 - Home Meds: 11:50 allopurinol 100 mg Oral tab 1 tab once daily [Active]; alprazolam 0.5 mg Oral tab jl7 [Active]; atorvastatin 10 mg Oral tab 1 tab once daily [Active]; clonazepam 2 mg Oral tab nightly [Active]; duloxetine 90 mg Oral cpDR 1 cap once daily [Active]; lithium carbonate 600 mg Oral cap daily [Active]; losartan 100 mg Oral tab 1 tab once daily [Active]; propranolol 80 mg Oral tab 1 tab 2 times per day [Active]; spironolactone 25 mg Oral tab 1 tab once daily [Active]; zolpidem 10 mg Oral tab once daily [Active]; - PMHx: 11:50 Anxiety; Arrythmia; Bipolar disorder; depression, anxiety, insomnia; fatty liver; Gout; jl7 High Cholesterol; Hypertension; - PSHx: 11:50 section; Cholecystectomy; jl7 - Immunization history:: Adult Immunizations up to date, Client reports receiving the 2nd dose of the Covid vaccine, Moderna. - Social history:: Smoking status: Patient denies any tobacco usage or history of. Screenin:41 Abuse screen: Denies threats or abuse. Denies injuries from another. Nutritional ld1 screening: No deficits noted. Tuberculosis screening: No symptoms or risk factors identified. Fall Risk None identified. Assessment: 12:49 General: Appears in no apparent distress. comfortable, Behavior is calm, cooperative, ld1 appropriate for age. Pain: Complains of pain in right jaw and epigastric area Pain does not radiate. Pain currently is 6 out of 10 on a pain scale. Quality of pain is described as Pain began X 2 months. Progressively getting worse. Is intermittent. Neuro: Level of Consciousness is awake, alert, obeys commands, Oriented to person, place, time, situation. Cardiovascular: Capillary refill < 3 seconds Patient's skin is warm and dry. Respiratory: Airway is patent Respiratory effort is even, unlabored, Respiratory pattern is regular, symmetrical. GI: Abdomen is round non-distended, Reports diarrhea, epigastric pain, vomiting. : No signs and/or symptoms were reported regarding the genitourinary system. EENT: No signs and/or symptoms were reported regarding the EENT system. Derm: No signs and/or symptoms reported regarding the dermatologic system. Musculoskeletal: No signs and/or symptoms reported regarding the musculoskeletal system. 14:02 Reassessment: Patient appears in no apparent distress at this time. Patient and/or ld1 family updated on plan of care and expected duration. Pain level reassessed. Patient is alert, oriented x 3, equal unlabored respirations, skin warm/dry/pink. 14:51 Reassessment: Patient appears in no apparent distress at this time. No changes from ld1 previously documented assessment. Laying in bed with daughter at bedside. Denies concerns at this time, waiting on results. Vital Signs: 11:48 BP 126 / 82; Pulse 68; Resp 17; Temp 97.6; Pulse Ox 99% ; jl7 12:35 BP 114 / 64 RA Supine; Pulse 66; Resp 18; Pulse Ox 99% on R/A; Pain 6/10; ld1 12:38 BP 127 / 82 RA Sitting; Pulse 74 RA; ld1 12:41 BP 127 / 83 Standing; Pulse 78 RA; ld1 14:02 BP 120 / 62; Pulse 82; Resp 18; Pulse Ox 99% on R/A; ld1 14:35 BP 123 / 67; Pulse 76; Resp 17; Pulse Ox 98% on R/A; ld1 ED Course: 11:45 Patient arrived in ED. jl7 11:46 Shantelle Peraza FNP-C [facility] kb 11:46 Alexander Kahn MD is Attending Physician. kb 11:50 Triage completed. jl7 11:50 Arm band placed on right wrist. Patient placed in waiting room, Patient notified of jl7 wait time. 12:32 Nanette Roth, RN is Primary Nurse. ld1 12:41 Patient has correct armband on for positive identification. Placed in gown. Bed in low ld1 position. Call light in reach. Side rails up X2. Pulse ox on. NIBP on. Door closed. Noise minimized. Warm blanket given. 12:41 No provider procedures requiring assistance completed. ld1 13:12 Inserted saline lock: 20 gauge in left antecubital area, using aseptic technique. ld1 13:12 Inserted saline lock: 22 gauge in right hand, using aseptic technique. ld1 13:50 CT Abd/Pelvis - IV Contrast Only In Process Unspecified. EDMS 15:07 IV discontinued, intact, bleeding controlled, No redness/swelling at site. ld1 Administered Medications: No medications were administered Outcome: 14:54 Discharge ordered by . kb 15:06 Discharged to home ambulatory, with family. ld1 15:06 Condition: stable 15:06 Discharge instructions given to patient, Instructed on discharge instructions, follow up and referral plans. medication usage, Demonstrated understanding of instructions, follow-up care, medications, Prescriptions given X 4. 15:07 Patient left the ED. ld1 Signatures: Dispatcher [employer] EDMS Shantelle Peraza FNP-C FNP-Ckb Leal, Jahala, RN RN jl7 Nanette Roth, AMANDA RN ld1
== END 2020-11-26 15:07 | disposition home or self-care (01) ==
LOC: ER 11:29
DX: R11.2 Nausea with vomiting, unspecified (principal); R19.7 Diarrhea, unspecified; I10 Essential (primary) hypertension; F31.9 Bipolar disorder, unspecified; Z88.2 Allergy status to sulfonamides
CPT/HCPCS: 36415; 74177; 80048; 80076; 82565; 83690; 85025; 99284; Q9967

== ENCOUNTER 2021-02-12 11:31 | Emergency (ER) | payer SELFPAY ==
[2021-02-12 13:19] LABS: SARS-COV-2 RT PCR NEGATIVE (NEGATIVE)
--- NOTE | 2021-02-12 14:29 | ER ---
Nurse's Notes [facility] Name: Shivani Lagunas Age: 45 yrs Sex: Female : 1975 Arrival Date: 02/12/2021 Time: 11:34 Bed DIS4 Private MD: Diagnosis: Coronavirus infection, unspecified;Headache;Contact with and (suspected) exposure to other viral communicable diseases Presentation: 02/12 12:08 Acuity: ALICIA 4 iw 14:06 Chief complaint: Patient states: exposed to COVID from family member. Coronavirus iw screen: Client presents with at least one sign or symptom that may indicate coronavirus-19. Ebola Screen: Patient negative for fever greater than or equal to 101.5 degrees Fahrenheit, and additional compatible Ebola Virus Disease symptoms Patient denies exposure to infectious person. Patient denies travel to an Ebola-affected area in the 21 days before illness onset. No symptoms or risks identified at this time. Initial Sepsis Screen: Does the patient meet any 2 criteria? No. Patient's initial sepsis screen is negative. Does the patient have a suspected source of infection? No. Patient's initial sepsis screen is negative. Risk Assessment: Do you want to hurt yourself or someone else? Patient reports no desire to harm self or others. Onset of symptoms was February 11, 2021. 14:06 Method Of Arrival: Ambulatory iw Historical: - Allergies: 14:07 Sulfa (Sulfonamide Antibiotics); iw - PMHx: 14:07 Anxiety; Arrythmia; Bipolar disorder; depression, anxiety, insomnia; Gout; fatty liver; iw High Cholesterol; Hypertension; - PSHx: 14:07 section; Cholecystectomy; iw - Family history:: not pertinent. Balta Coma Score: 14:23 Eye Response: spontaneous(4). Verbal Response: oriented(5). Motor Response: obeys lori commands(6). Total: 15. ED Course: 11:34 Patient arrived in ED. mr 12:08 Triage completed. iw 13:49 Bal Dowling MD is Attending Physician. lori 14:06 Mayelin Archibald, AMANDA is Primary Nurse. iw Administered Medications: No medications were administered Outcome: 14:28 Discharge ordered by . lori 15:13 Patient left the ED. al4 Signatures: Bal Dowling MD MD cha Rivera, Mary Mayelin Bruno, RN RN Deven Walter
--- NOTE | 2021-02-12 14:29 | EDPHYS ---
Physician Documentation [facility] Name: Shivani Lagunas Age: 45 yrs Sex: Female : 1975 Arrival Date: 02/12/2021 Time: 11:34 Bed DIS4 Private MD: JORDON Physician Bal Dowling HPI: 02/12 14:20 This 45 yrs old Female presents to ER via Ambulatory with complaints of Covid lori Symptoms. 14:20 The patient complains of pain to the forehead, left frontal area and right frontal lori area. The patient describes the headache as constant. Onset: The symptoms/episode began/occurred 3 day(s) ago. The patient or guardian reports cough, flu symptoms, arthralgias, low-grade fever, myalgias. Onset: The symptoms/episode began/occurred 3 day(s) ago. Modifying factors: The symptoms are alleviated by nothing. the symptoms are aggravated by nothing. Associated signs and symptoms: Pertinent positives: fever, nausea, sinus congestion. Severity of symptoms: At its worst the pain was mild, in the emergency department the pain is unchanged. Headache History: Denies prior headaches. Historical: - Allergies: 14:07 Sulfa (Sulfonamide Antibiotics); iw - PMHx: 14:07 Anxiety; Arrythmia; Bipolar disorder; depression, anxiety, insomnia; Gout; fatty liver; iw High Cholesterol; Hypertension; - PSHx: 14:07 section; Cholecystectomy; iw - Family history:: not pertinent. ROS: 14:20 Constitutional: Negative for fever, chills, and weight loss, Eyes: Negative for injury, lori pain, redness, and discharge, ENT: Negative for injury, pain, and discharge, Neck: Negative for injury, pain, and swelling, Cardiovascular: Negative for chest pain, palpitations, and edema, Respiratory: Negative for shortness of breath, cough, wheezing, and pleuritic chest pain, Abdomen/GI: Negative for abdominal pain, nausea, vomiting, diarrhea, and constipation, Back: Negative for injury and pain, : Negative for injury, bleeding, discharge, and swelling, MS/Extremity: Negative for injury and deformity, Skin: Negative for injury, rash, and discoloration, Neuro: Negative for headache, weakness, numbness, tingling, and seizure, Psych: Negative for depression, anxiety, suicide ideation, homicidal ideation, and hallucinations, Allergy/Immunology: Negative for hives, rash, and allergies, Endocrine: Negative for neck swelling, polydipsia, polyuria, polyphagia, and marked weight changes, Hematologic/Lymphatic: Negative for swollen nodes, abnormal bleeding, and unusual bruising. Exam: 14:22 Constitutional: This is a well developed, well nourished patient who is awake, alert, lori and in no acute distress. Head/Face: Normocephalic, atraumatic. Eyes: Pupils equal round and reactive to light, extra-ocular motions intact. Lids and lashes normal. Conjunctiva and sclera are non-icteric and not injected. Cornea within normal limits. Periorbital areas with no swelling, redness, or edema. ENT: Nares patent. No nasal discharge, no septal abnormalities noted. Tympanic membranes are normal and external auditory canals are clear. Oropharynx with no redness, swelling, or masses, exudates, or evidence of obstruction, uvula midline. Mucous membranes moist. Neck: Trachea midline, no thyromegaly or masses palpated, and no cervical lymphadenopathy. Supple, full range of motion without nuchal rigidity, or vertebral point tenderness. No Meningismus. Chest/axilla: Normal chest wall appearance and motion. Nontender with no deformity. No lesions are appreciated. Cardiovascular: Regular rate and rhythm with a normal S1 and S2. No gallops, murmurs, or rubs. Normal PMI, no JVD. No pulse deficits. Respiratory: Lungs have equal breath sounds bilaterally, clear to auscultation and percussion. No rales, rhonchi or wheezes noted. No increased work of breathing, no retractions or nasal flaring. Abdomen/GI: Soft, non-tender, with normal bowel sounds. No distension or tympany. No guarding or rebound. No evidence of tenderness throughout. Pelvic Exam: Normal external genitalia. Speculum exam with closed cervical os, no discharge or bleeding noted. Bimanual exam with normal adnexa, no adnexal or cervical motion tenderness. Normal uterus. Skin: Warm, dry with normal turgor. Normal color with no rashes, no lesions, and no evidence of cellulitis. MS/ Extremity: Pulses equal, no cyanosis. Neurovascular intact. Full, normal range of motion. Neuro: Awake and alert, GCS 15, oriented to person, place, time, and situation. Cranial nerves II-XII grossly intact. Motor strength 5/5 in all extremities. Sensory grossly intact. Cerebellar exam normal. Normal gait. Psych: Awake, alert, with orientation to person, place and time. Behavior, mood, and affect are within normal limits. 14:22 Neck: ROM/movement: is normal, no acute changes, limited range of motion, is not appreciated, Meningeal signs: are not present, Kernig's sign is negative, Brudzinski's sign is negative. Logan Coma Score: 14:23 Eye Response: spontaneous(4). Verbal Response: oriented(5). Motor Response: obeys [facility] commands(6). Total: 15. MDM: 13:49 Patient medically screened. [facility] 14:23 Antibiotic administration: The patient is discharged and will get outpatient [facility] antibiotics, Zithromax. Differential diagnosis: bronchitis, sinusitis, tension headache, vasomotor headache. Differential Diagnosis: Bronchitis Influenza Upper Respiratory Infection Sinusitis Pharyngitis Otitis Media Allergic Rhinitis Viral Syndrome. Data reviewed: vital signs, nurses notes. Data interpreted: color television console monitor: rate is 85 beats/min, rhythm is regular, Pulse oximetry: on room air is 100 %. Test interpretation: by ED physician or midlevel provider:. Counseling: I had a detailed discussion with the patient and/or guardian regarding: the historical points, exam findings, and any diagnostic results supporting the discharge/admit diagnosis, lab results, radiology results, the need for outpatient follow up, for definitive care, a family practitioner. 02/12 11:47 Order name: COVID-19/FLU A+B (Document "Date of Onset" if Symptomatic) mb4 02/12 11:48 Order name: COVID-19/FLU A+B; Complete Time: 14:07 EDMS Administered Medications: No medications were administered Disposition Summary: 02/12/21 14:28 Discharge Ordered Location: Home lori Problem: new lori Symptoms: have improved lori Condition: Stable lori Diagnosis - Coronavirus infection, unspecified lori - Headache lori - Contact with and (suspected) exposure to other viral communicable diseases lori Followup: lori - With: Private Physician - When: 2 - 3 days - Reason: Recheck today's complaints, Continuance of care, Re-evaluation by your physician Discharge Instructions: - Discharge Summary Sheet lori - Upper Respiratory Infection, Adult lori - Aspirin and Your Heart lori - COVID-19 lori - COVID-19 Frequently Asked Questions [facility] - 10 Things You Can Do to Manage Your COVID-19 Symptoms at Home - [facility] - COVID-19: Quarantine vs. Isolation - [facility] Forms: - Medication Reconciliation Form lori - Thank You Letter lori - Antibiotic Education lori - Prescription Opioid Use [facility] - Work release form iw Prescriptions: - ivermectin 3 mg Oral tablet - take 4 tablet by ORAL route once daily; 12 tablet; Refills: 0, Product lroi Selection Permitted - Pepcid 20 mg Oral Tablet - take 1 tablet by ORAL route every 12 hours for 30 days; 60 tablet; Refills: 0, [facility] Product Selection Permitted - Singulair 10 mg Oral Tablet - take 1 tablet by ORAL route At bedtime; 30 tablet; Refills: 0, Product lori Selection Permitted - Zithromax Z-Rad 250 mg Oral Tablet - take 1 tablet by ORAL route as directed for 5 days Day 1 - take two (2) tablets [facility] one time. Day 2, 3, 4 , 5 take one (1) tablet once daily.; 6 tablet; Refills: 0, Product Selection Permitted - Zofran 4 mg Oral Tablet - take 1 tablet by ORAL route every 12 hours As needed; 20 tablet; Refills: 0, [facility] Product Selection Permitted Signatures: Dispatcher [employer] Bal Noel MD MD cha Williams, Irene RN RN iw
[2021-02-12] MEDS ORDERED: FAMOTIDINE 20 MG TAB ONE (14:51)
[2021-02-12] MEDS ORDERED: AZITHROMYCIN 250 MG TAB ONE (14:51)
[2021-02-12] MEDS ORDERED: ASPIRIN 81 MG CHEWABLE TABLET ONE (14:51)
[2021-02-12] MEDS ORDERED: IBUPROFEN 200 MG TAB PO ONE (14:51)
== END 2021-02-12 15:13 | disposition home or self-care (01) ==
LOC: ER 11:31
DX: U07.1 COVID-19 (principal); Z88.2 Allergy status to sulfonamides
CPT/HCPCS: 0240U; 99281

== ENCOUNTER 2021-03-13 13:11 | Emergency (ER) | payer SELFPAY ==
--- OUTSIDE RECORDS SUMMARY | 2021-03-13 13:15 | XMS REPORT | Continuity of Care Document ---
:1975 Author Organization [facility] t Address [address] [place] [address] Care Team Providers Name Role Phone Pcp, Does Not Have A Primary Care Physician Darryn Connor DO Attending Clinician Darryn CONNOR Attending Clinician Unavailable Sherman BAUER, P Attending Clinician Pcp-Lab Attending Clinician Unavailable Milton MELGOZA Attending Clinician Doctor Unassigned, Name Attending Clinician Unavailable Payers Payer Name Policy Type Policy Number Effective Date Expiration Date S ource Problems Condition Condition Condition Status Onset Resolution Last Treating Co mments Source Name Details Category Date Date Treatment Clinician Date No known No known Disease Unive rs active active ity of problems problems [place] [facility] Allergies, Adverse Reactions, Alerts Allergy Allergy Status Severity Reaction(s) Onset Inactive Treating Comm ents Source Name Type Date Date Clinician Sulfa Propensi Active Hives 2019-0 Univers (Sulfona ty to 4-24 ity of mide adverse 00:00: [place] Antibiot reaction 00 Medica l ics) s Branch SULFA Drug Active Hives 2019-0 Univers (SULFONA Class 4-24 ity of MIDE 00:00: [place] ANTIBIOT 00 Medical ICS) Branch Social History Social Habit Start Date Stop Date Quantity Comments Source Exposure to Not sure [facility] SARS-CoV-2 (event) Medica l Branch Tobacco use and 2019-08-06 2019-08-06 Never used [facility] exposure 00:00:00 00:00:00 [facility] Sex Ass[birth year] At [birth year] [facility] 00:00:00 00:00:00 Medical Branch Smoking Status Start Date Stop Date Source Never smoker [facility] [place] [facility] Medications Ordered Filled Start Stop Current Ordering Indication Dosage Frequency Signature Comments Components Source Medication Medication Date Date Medication? Clinician (SIG) Name Name butorphanol 2021- No 1mg 1 mg, IV U nivers (STADOL) 03-11 Push, ity of injection 1 19:00: 17:55 [place]CE[place] 1 [place] mg 00 :[place] dose, On Medical Fri Branch 03/11/21 at 1300, Routine dexamethaso 2021- No 10mg 10 mg, IV Univers ne 03-11 Push, ity of (DECADRON 17:00: 16:09 [place]CE, 1 [place] PHOS[place] 00 :00 dose, On Medic al injection Fri Branch 10 mg 03/11/21 at 1100, STAT diphenhydrA 2021- No 25mg 25 mg, Uni vers MINE 03-11 Slow IV ity of (BENADRYL) 17:00: 16:09 Push, [place] injection 00 :00 ONCE, 1 Medical 25 mg dose, On Branch 03/11/21 at 1100, STAT ketorolac 2021- No 30mg 30 mg, Unive rs (TORADOL) 03-11 Slow IV ity of injection 17:00: 16:09 Push, [place] 30 mg 00 :00 ONCE, 1 Medical dose, On Branch 03/11/21 at 1100, SKYLAR metoclopram 2021- No 10mg 10 mg, Uni vers chelo HCl 03-11 Slow IV ity of (REGLAN) 17:00: 16:09 Push, [place] injection 00 :00 ONCE, 1 Medical 10 mg dose, On Branch 03/11/21 at 1100, SKYLAR NaCl 0.9% 2021- No 1000mL at 999 Uni vers (NS) bolus 03-11-28 mL/hr, ity of infusion 17:00: 17:53 1,000 mL, Iam as 1,000 mL 00 :00 IV Medical Infusion, Branch ONCE, 1 dose, On Sun03/11/21 at 1100, SKYLAR lithium 600 2020-02 Yes [id number] 600mg Take 1 Univers mg capsule 2-20 capsule by ity of 00:00: mouth 2 [place] 00 (two) Medical times Branch daily. DULoxetine 2020-02 Yes [id number] 60mg Take 1 U nivers 60 mg 2-20 capsule by ity of capsule 00:00: mouth 2 [place] 00 (two) Medical times Branch daily. traZODone 2020-02 Yes [id number] 50mg Take 1 U nivers 50 mg 2-20 tablet by ity of tablet 00:00: mouth at [place] 00 bedtime. Medical May cut Branch tablet in half. lithium 600 2020-02 Yes [id number] 600mg Take 1 Univers mg capsule 2-20 capsule by ity of 00:00: mouth 2 [place] 00 (two) Medical times Branch daily. DULoxetine 2020-02 Yes [id number] 60mg Take 1 U nivers 60 mg 2-20 capsule by ity of capsule 00:00: mouth 2 [place] 00 (two) Medical times Branch daily. traZODone 2020-02 Yes [id number] 50mg Take 1 U nivers 50 mg 2-20 tablet by ity of tablet 00:00: mouth at [place] 00 bedtime. Medical May cut Branch tablet in half. clonazePAM 2020-02 Yes [id number] Take no Univers 1 mg tablet 1-17 more than ity of 00:00: 1 mg twice [place] 00 daily as Medical needed for Branch anxiety clonazePAM 2020-02 Yes [id number] Take no Univers 1 mg tablet 1-17 more than ity of 00:00: 1 mg twice [place] 00 daily as Medical needed for Branch anxiety butalbital- Yes [id number] 1{tbl} Take 1 Univers acetaminoph 7-22 tablet by ity of en-caff 00:00: mouth [place] 50-325-40 00 every 6 Medical mg tablet (six) Branch hours as needed for Pain (scale 7-10). ondansetron Yes [id number] 4mg Take 1 Univers (ZOFRAN 7-22 tablet by ity of ODT) 4 mg 00:00: mouth [place] disintegrat 00 every 8 Medic al ing tablet (eight) Branch hours as needed for Nausea and Vomiting (N/V). butalbital- Yes [id number] 1{tbl} Take 1 Univers acetaminoph 7-22 tablet by ity of en-caff 00:00: mouth [place] 50-325-40 00 every 6 Medical mg tablet (six) Branch hours as needed for Pain (scale 7-10). ondansetron Yes [id number] 4mg Take 1 Univers (ZOFRAN 7-22 tablet by ity of ODT) 4 mg 00:00: mouth [place] disintegrat 00 every 8 Medic al ing tablet (eight) Branch hours as needed for Nausea and Vomiting (N/V). FUROSEMIDE 2019-0 Yes 40mg Take 40 mg U nivers ORAL 6-24 by mouth ity of 13:17: daily. [place] [address] Medical Branch allopurinoL 2020-0 Yes 100mg Take 100 U nivers 100 mg 6-24 mg by ity of tablet 13:17: mouth [place] [address] daily. Medical Branch atorvastati 2019-0 Yes 10mg Take 10 mg Univers n 10 mg 6-24 by mouth ity of tablet 13:17: at [place] [address] bedtime. Medical Branch FUROSEMIDE 2019-0 Yes 40mg Take 40 mg U nivers ORAL 6-24 by mouth ity of 13:17: daily. [place] [address] Medical Branch allopurinoL 2019-0 Yes 100mg Take 100 U nivers 100 mg 6-24 mg by ity of tablet 13:17: mouth [place] [address] daily. Medical Branch atorvastati 2020-0 Yes 10mg Take 10 mg Univers n 10 mg 6-24 by mouth ity of tablet 13:17: at [place] [address] bedtime. Medical Branch propranolol 2020-0 Yes 80mg Take 80 mg Univers 80 mg 6-24 by mouth 2 ity of tablet 13:12: (two) [place] 38 times Medical daily. Branch propranolol 2020-0 Yes 80mg Take 80 mg Univers 80 mg 6-24 by mouth 2 ity of tablet 13:12: (two) [place] 38 times Medical daily. Branch losartan 2020-0 Yes Take by Univ rs potassium 6-24 mouth. ity of (LOSARTAN 13:10: [place] ORAL) 57 Medical Branch losartan 2020-0 Yes Take by Unive rs potassium 6-24 mouth. ity of (LOSARTAN 13:10: [place] ORAL) 57 Medical Branch Vital Signs Vital Name Observation Time Observation Value Comments Source Systolic blood 2021-03-11 19:00:00 137 mm[Hg] Univer sity of pressure [facility] Diastolic blood 2021-03-11 19:00:00 82 mm[Hg] Unive rsity of pressure [facility] Heart rate 2021-03-11 19:00:00 93 /min Universi ty of [facility] [place] [facility] Branch Respiratory rate 2021-03-11 19:00:00 20 /min [facility] ersity of [facility] Oxygen saturation in 2021-03-11 19:00:00 96 /min University of Arterial blood by [employer] Pulse oximetry Branch Body temperature 2021-03-11 15:43:00 36.44 Verna [facility] ersity of [facility] Body height 2021-03-11 15:43:00 167.6 cm Universi ty of [facility] Body weight 2021-03-11 15:43:00 86.183 kg Universi ty of [place] [facility] BMI 2021-03-11 15:43:00 30.67 kg/m2 Universi ty of [facility] [place] [facility] Branch Systolic blood 2021-03-11 15:43:00 151 mm[Hg] Univer sity of [email or web address] Diastolic blood 2021-03-11 15:43:00 83 mm[Hg] Unive rsity of pressure [facility] Heart rate 2021-03-11 15:43:00 87 /min Universi ty of [facility] [place] [facility] Branch Body temperature 2021-03-11 15:43:00 36.44 Verna [facility] ersity of [facility] [place] [facility] Branch Respiratory rate 2021-03-11 15:43:00 18 /min [facility] ersity of [place] [facility] [place] Body height 2021-03-11 15:43:00 167.6 cm Universi ty of [place] [facility] Body weight 2021-03-11 15:43:00 86.183 kg Universi ty of [place] [facility] BMI 2021-03-11 15:43:00 30.67 kg/m2 Universi ty of [place] [facility] Oxygen saturation in 2021-03-11 15:43:00 97 /min University of Arterial blood by [employer] Pulse oximetry Branch Procedures Procedure Date / Time Performing Clinician Source Performed COMP. METABOLIC PANEL 2021-03-11 16:01:00 Halima Connor [facility] ([id number]) Medical Branch LITHIUM 2021-03-11 16:01:00 Halima Connor [facility] CBC WITH DIFF 2021-03-11 16:01:00 Halima Connor [facility] CONSENT/REFUSAL FOR 2021-03-11 15:28:30 Doctor Unassigned, No Un iversity [facility] DIAGNOSIS AND TREATMENT Name Medical Branch CONSENT/REFUSAL FOR 2021-03-11 15:28:30 Doctor Unassigned, No Un iversity [facility] DIAGNOSIS AND TREATMENT Name [facility] COMP. METABOLIC PANEL 2021-03-08 18:01:00 Patsy Gonzalez [facility] ([id number]) [facility] LITHIUM 2021-03-08 18:01:00 Patsy Gonzalez [place] [facility] THYROID STIMULATING 2021-03-08 18:01:00 Patsy Gonzalez [facility] HORMONE [facility] Branch Encounters Start End Encounter Admission Attending Care Care Encounter Source Date/Time Date/Time Type Type Clinicians Facility Department ID 2021-03-11 2021-03-11 [facility] [id number] Univers 09:44:00 13:06:00 Halima WALLACE 350.1.13.10 ity of [place] 4.2.7.2.686 [facility] [id number] [facility] 084 Branch 2021-03-11 2021-03-11 Emergency [facility] E[facility] [id number] Univers 09:44:00 13:06:00 HALIMA ity of [facility] 2021-03-11 2021-03-11 Travel 1.2.840.1 [id number] [id number] Univers 00:00:00 00:00:00 48411.1.1 350.1.13.10 ity 3.104.2.7 4.[place].7.3.698 [place] .3.061581 084.8 Medica l .8 Branch 2021-03-08 2021-03-08 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 Whitaker 1.2.840.1 [id number] Univers 15:00:00 15:15:00 Visit Pcp-Lab 41002.1.1 ity of 3.104.2.7 [place] .3.874828 Medica l .8 Branch 2020-12-29 2020-12-29 Travel 1.2.840.1 1.2.095.250 [id number] Univers 00:00:00 00:00:00 96435.1.1 350.1.13.10 ity of 3.104.2.7 4.2.7.3.698 [place] .3.158569 084.8 Medica l .8 Branch 2020-09-02 2020-09-02 Emergency [place], [facility] 1.2.840.114 [id number] 16:12:00 20:21:00 Patti Wallace 350.1.13.10 [place] 4.2.7.2.686 [place] [id number] [facility] 2020-09-02 2020-09-02 Orders Doctor MOO 1.2.840.114 [id number] 00:00:00 00:00:00 Only Unassigned, QUITA 350.1.13.10 Emet [facility] 4.2.7.2.686 [id number] Results Test Description Test Time Test Comments Results Result Comments Source LITHIUM 2021-03-11 17:26:36 Test Item Value Reference Range Interpretation Comme nts [place] (test code = 5442809781) 0.8 mmol/L 0.6-1.2 ZAINAB (test code = ZAINAB) Toxic Range: ? Greater than 1.2 mmol/L Lab Interpretation (test code = 17657-2) Normal [facility] WITH [id number] 16:58:12 Test Item Value Reference Range Interpretation Comments WBC (test code = See_Comment [Automated 3190-2) message] The sy stem which generated this result transmitted reference range : 4.30 - 11.10 10*3/?L. The reference range was not used to interpret this result as normal/abnormal . RBC (test code = See_Comment [Automated 639-8) message] The sy stem which generated this result transmitted reference range : 3.93 - 5.25 10*6/?L. The reference range was not used to interpret this result as normal/abnormal . HGB (test code = 11.0 g/dL 11.6-15.0 L 718-7) HCT (test code = 34.6 % 35.7-45.2 L 4544-3) MCV (test code = 81.4 fL 80.6-95.5 787-2) MCH (test code = 25.9 pg 25.9-32.8 785-6) MCHC (test code = 31.8 g/dL 31.6-35.1 786-4) RDW-SD (test code = 42.7 fL 39.0-49.9 66609-2) RDW-CV (test code = 14.6 % 12.0-15.5 788-0) PLT (test code = See_Comment [Automated 777-3) message] The sy stem which generated this result transmitted reference range : 166 - 358 10*3/ ?L. The reference r kuldip was not used to interpret this result as normal/abnormal . MPV (test code = 11.8 fL 9.5-12.9 93708-9) IPF % (test code = 5.3 % 1.3-7.7 Platelet count 9820521250) measured by fluorescence method. NRBC/100 WBC (test See_Comment [Automat ed code = 2381246840) message] The system which generated this result transmitted reference range : 0.0 - 10.0 /100 WBCs. The refer ence range was not u sed to interpret th is result as normal/abnormal . NRBC x10^3 (test code See_Comment [Auto mated = 1906449194) message] The s ystem which generated this result transmitted reference range : 10*3/?L. The reference range was not used to interpret this result as normal/abnormal . GRAN MAT (NEUT) % 65.5 % (test code = 770-8) IMM GRAN % (test code 0.30 % = 3140720086) LYMPH % (test code = 21.6 % 736-9) MONO % (test code = 5.9 % 5905-5) EOS % (test code = 5.7 % 713-8) BASO % (test code = 1.0 % 706-2) GRAN MAT x10^3(ANC) 3.79 10*3/uL 1.88-7.09 (test code = 0866850964) IMM GRAN x10^3 (test <0.03 0.00-0.06 code = 9839696970) LYMPH x10^3 (test code 1.25 10*3/uL 1.32-3.29 L = 731-0) MONO x10^3 (test code 0.34 10*3/uL 0.33-0.92 = 742-7) EOS x10^3 (test code = 0.33 10*3/uL 0.03-0.39 711-2) BASO x10^3 (test code 0.06 10*3/uL 0.01-0.07 = 704-7) PLT ESTIMATE (test Normal Normal code = 9317-9) Lab Interpretation Abnormal (test code = 88582-7) [facility]. METABOLIC PANEL ([id number])2021-03-11 16:41:49 Test Item Value Reference Range Interpretation Comments NA (test code = 136 mmol/L 135-145 8747063844) K (test code = 4.9 mmol/L 3.5-5.0 4521073463) CL (test code = 105 mmol/L 98-108 5696158835) CO2 TOTAL (test code 23 mmol/L 23-31 = 7394765148) AGAP (test code = 2-16 6201090904) BUN (test code = 10 mg/dL 7-23 0881843345) GLUCOSE (test code = 101 mg/dL 70-110 0104888079) CREATININE (test code 0.57 mg/dL 0.50-1.04 = 8823145680) TOTAL BILI (test code 0.5 mg/dL 0.1-1.1 = 5744121046) CALCIUM (test code = 9.1 mg/dL 8.6-10.6 2427037533) T PROTEIN (test code 7.2 g/dL 6.3-8.2 = 8301571845) ALBUMIN (test code = 4.3 g/dL 3.5-5.0 8230387676) ALK PHOS (test code = 115 U/L 34-122 7475401052) ALTv (test code = 26 U/L 5-35 1742-6) AST(SGOT) (test code 35 U/L 13-40 = 5355675703) eGFR (test code = mL/min/1.73m2 9915371755) ZAINAB (test code = ZAINAB) Association of Glomerular Filtration Rate (GFR) and Staging of Kidney Disease* + + +- +| GFR (mL/min/1.73 m2) ?| With Kidney Damage ?| ?Without Kidney Damage+ ------+ ----+ ------+| ?>90 ?| ?Stage one ?| ? Normal ?+ -+ + -+| ?60-89 ?| ?Stage two ?| ? Decreased GFR ? + + +- +| ?30-59 ?| ?Stage three ?| ? Stage three ? + + +- +| ?15-29 ?| ?Stage four ? | ? Stage four ?+ -+ + -+| ?<15 (or dialysis) ? ?| ?Stage five ? | ? Stage five ?+ -+ + -+ *Each stage assumes the associated GFR level has been in effect for at least three months. ?Stages 1 to 5, with or without kidney disease, indicate chronic kidney disease. Notes: Determination of stages one and two (with eGFR >59mL/min/1.73 m2) requires estimation of kidney damage for at least three months as defined by structural or functional abnormalities of the kidney, manifested by either:Pathological abnormalities or Markers of kidney damage (including abnormalities in the composition of the blood or urine or abnormalities in imaging tests). [facility] Test Item Value Reference Range Interpretation Comments [place] (test code = 0.5 mmol/L 0.6-1.2 L 1872570075) ZAINAB (test code = ZAINAB) Toxic Range: ? Greater than 1.2 mmol/L Lab Interpretation (test Abnormal code = 42272-7) [facility] [id number] 02:11:55 Test Item Value Reference Range Interpretation Comments TSH (test code = See_Comment [Automated message] 0986827404) The system [employer] generated this result transmitted ref erence range: 0.45 - 4 .70 mIU/L. The refe rence range was not u sed to interpret this result as normal/abnor mal. Lab Interpretation (test Normal code = 37566-5) [facility]. METABOLIC PANEL (31483)2021-03-09 01:52:33 Test Item Value Reference Range Interpretation Comments NA (test code = 140 mmol/L 135-145 9138515560) K (test code = 4.5 mmol/L 3.5-5.0 2893946975) CL (test code = 107 mmol/L 98-108 1751473993) CO2 TOTAL (test code = 26 mmol/L 23-31 6231281510) AGAP (test code = 2-16 8642605679) BUN (test code = 8 mg/dL 7-23 0813860415) GLUCOSE (test code = 89 mg/dL 70-110 5959619343) CREATININE (test code = 0.64 mg/dL 0.50-1.04 1565100462) TOTAL BILI (test code = 0.3 mg/dL 0.1-1.5 5614654721) CALCIUM (test code = 9.6 mg/dL 8.6-10.6 7602818464) T PROTEIN (test code = 7.3 g/dL 6.3-8.2 2290616269) ALBUMIN (test code = 4.3 g/dL 3.5-5.0 3227843341) ALK PHOS (test code = 126 U/L 34-122 H 9913114550) ALTv (test code = 23 U/L 5-35 1742-6) AST(SGOT) (test code = 25 U/L 13-40 1132330709) eGFR (test code = mL/min/1.73m2 6961324936) ZAINAB (test code = ZAINAB) Association of Glomerular Filtration Rate (GFR) and Staging of Kidney Disease* + --+ --+ ------+| GFR (mL/min/1.73 m2) ?| With Kidney Damage ?| ?Without Kidney Damage+ --------+ --------+ +| ?>90 ?| ?Stage one ?| ? Normal ?+ ---+ ---+ -------+| ?60-89 ?| ?Stage two ?| ? Decreased GFR ? + --+ --+ ------+| ?30-59 ?| ?Stage three ?| ? Stage three ? + --+ --+ ------+| ?15-29 ?| ?Stage four ? | ? Stage four ?+ ---+ ---+ -------+| ?<15 (or dialysis) ? ?| ?Stage five ? | ? Stage five ?+ ---+ ---+ -------+ *Each stage assumes the associated GFR level has been in effect for at least three months. ?Stages 1 to 5, with or without kidney disease, indicate chronic kidney disease. Notes: Determination of stages one and two (with eGFR >59mL/min/1.73 m2) requires estimation of kidney damage for at least three months as defined by structural or functional abnormalities of the kidney, manifested by either:Pathological abnormalities or Markers of kidney damage (including abnormalities in the composition of the blood or urine or abnormalities in imaging tests). Lab Interpretation Abnormal (test code = 29290-8) [facility] RISK)2018-07-20 07:27:00 Test Item Value Reference Range Interpretation Comments TRIGLYCERIDES (test 143 MG/DL TRIGLYCE RIDES code = TRIG) REFERENCE RANGE:Normal: < 150 mg/dLBorderline High: 150-199 mg/dLHi gh: 200-499 mg/dLVe ry High: >=500 mg/ dL CHOLESTEROL (test code 190 MG/DL <200 = CHOL) HDL CHOLESTEROL (test 41 MG/DL 40-59 N code = HDL) LIPOPROTEIN LDL (test 144 MG/DL 0-99 H code = LDL) OPTIMAL........ .<100 mg/dLNEAR OPTIMAL/ABOVE OPTIMAL........ .100-12 9 mg/dL BORDERLINE HIGH.........13 0-159 mg/dL HIGH.........16 0-189 mg/dL VERY HIGH...... ...>/= 190 mg/dL Comments to [employer] Director: ADD TO AM LABSLIPID PROFILE (CORONARY RISK)2018-07-20 [...] MG/DL 0-99 code = LDL) Comments to [employer] Director: ADD TO AM LABSPTT [id number] 06:24:00 Test Item Value Reference Range Interpretation Comments PTT ACTIVATED (test code = APTT) 29.3 SECONDS 22.0-33.0 N Comments to [employer] Director: NURSE WILL BRING SPECIMEN TO LABPROTHROMBIN TIME 2018-07-20 06:24:00 Test Item Value Reference Range [...] karla embolism. 3.0 - 4.5 Comments to [employer] Director: NURSE WILL BRING SPECIMEN TO LABBASIC METABOLIC [...] 9.6 MG/DL 8.4-10.2 N CA) Comments to [employer] Director: NURSE WILL BRING SPECIMEN TO LAB Comments to [employer] Director: NURSE WILL BRING SPECIMEN TO [id number] 06:13:00 Test Item Value Reference Range Interpretation Comments MAGNESIUM (test code = MAG) 2.2 MG/DL 1.6-2.3 N Comments to [employer] Director: NURSE WILL BRING SPECIMEN TO LAB Comments to [employer] Director: NURSE WILL BRING SPECIMEN TO LABCBC W/AUTO [id number] 06:02:00 Test Item Value Reference Range Interpretation [...] (test code = 0.00 K/mm3 0.0-0.1 N NRBC#)"
[2021-03-13] MEDS ORDERED: VALACYCLOVIR 500 MG TAB ONE (14:11)
[2021-03-13] MEDS ORDERED: predniSONE 20 MG TAB ONE (14:11)
--- NOTE | 2021-03-13 14:17 | ER ---
Nurse's Notes [facility] Name: Shivani Lagunas Age: 45 yrs Sex: Female : 1975 Arrival Date: 03/13/2021 Time: 13:12 Bed Waiting Private MD: Diagnosis: Jane's palsy Presentation: 03/13 13:53 Chief complaint: Patient states: has had a h/a x 1 week and noticed that last night was vg1 not able to close Left eye, states Right side of face 'is drooping' and is unable to drink fluids 'bc it spills right out of my mouth'. Denies numbness or tingling to face. Coronavirus screen: Vaccine status: Patient reports receiving the 2nd dose of the covid vaccine. Client denies travel out of the [place] in the last 14 days. Ebola Screen: Patient negative for fever greater than or equal to 101.5 degrees Fahrenheit, and additional compatible Ebola Virus Disease symptoms. Initial Sepsis Screen: Does the patient meet any 2 criteria? No. Patient's initial sepsis screen is negative. Does the patient have a suspected source of infection? No. Patient's initial sepsis screen is negative. Risk Assessment: Do you want to hurt yourself or someone else? Patient reports no desire to harm self or others. Onset of symptoms was March 12, 2021. 13:53 Method Of Arrival: Ambulatory vg1 13:53 Acuity: ALICIA 3 vg1 Triage Assessment: 13:57 General: Appears in no apparent distress. uncomfortable, Behavior is calm, cooperative. vg1 Pain: Complains of pain in head Pain currently is 6 out of 10 on a pain scale. Neuro: Level of Consciousness is awake, alert, obeys commands, Oriented to person, place, time, situation, Moves all extremities. Gait is steady, Speech is normal, Facial droop on right, Reports headache Denies paresthesias numbness. 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 vg1 Historical: - Allergies: 13:57 Sulfa (Sulfonamide Antibiotics); vg1 - Home Meds: 13:57 clonazepam 2 mg Oral tab nightly [Active]; duloxetine 90 mg Oral cpDR 1 cap once daily vg1 [Active]; lithium carbonate 600 mg Oral cap daily [Active]; losartan 100 mg Oral tab 1 tab once daily [Active]; propranolol 80 mg Oral tab 1 tab 2 times per day [Active]; - PMHx: 13:57 Anxiety; Arrythmia; Bipolar disorder; depression, anxiety, insomnia; fatty liver; Gout; vg1 High Cholesterol; Hypertension; - PSHx: 13:57 section; Cholecystectomy; vg1 - Immunization history:: Client reports receiving the 2nd dose of the Covid vaccine. - Social history:: Smoking status: Patient denies any tobacco usage or history of. - Family history:: not pertinent. Screenin:40 Abuse screen: Denies threats or abuse. Nutritional screening: No deficits noted. vg1 Tuberculosis screening: No symptoms or risk factors identified. Fall Risk None identified. Vital Signs: 13:53 BP 134 / 78; Pulse 93; Resp 16; Temp 97.9; Pulse Ox 100% ; Weight 86.18 kg; Height 5 vg1 ft. 6 in. (167.64 cm); Pain 6/10; 13:53 Body Mass Index 30.67 (86.18 kg, 167.64 cm) vg1 ED Course: 13:12 Patient arrived in ED. mr 13:57 Triage completed. vg1 13:57 Arm band placed on. vg1 14:05 Bal Dowling MD is Attending Physician. [facility] 14:16 Vasyl Sawant MD is Referral Physician. [facility] 14:40 Patient has correct armband on for positive identification. vg1 14:40 No provider procedures requiring assistance completed. Patient did not have IV access vg1 during this emergency room visit. Administered Medications: No medications were administered Outcome: 14:16 Discharge ordered by . [facility] 14:40 Discharged to home ambulatory. vg1 14:40 Condition: good 14:40 Discharge instructions given to patient, Instructed on discharge instructions, follow up and referral plans. medication usage, Demonstrated understanding of instructions, follow-up care, medications, Prescriptions given X 3. 14:41 Patient left the ED. vg1 Signatures: Bal Dowling MD MD cha Rivera, Mary mr Garcia, Victoria, RN RN vg1
--- NOTE | 2021-03-13 14:17 | EDPHYS ---
Physician Documentation [facility] Name: Shivani Lagunas Age: 45 yrs Sex: Female : 1975 Arrival Date: 03/13/2021 Time: 13:12 Bed Waiting Private MD: JORDON Physician Bal Dowling HPI: 03/13 14:10 This 45 yrs old Female presents to ER via Ambulatory with complaints of Facial lori Droop. 14:10 The patient presents to the emergency department with paresthesias of the left side of lori the face, that is moderate. Onset: The symptoms/episode began/occurred just prior to arrival. Context: occurred at an unknown location. Associated signs and symptoms: Pertinent positives: paresthesias, weakness. Severity of symptoms: At their worst the symptoms were mild in the emergency department the symptoms are unchanged. Patient's baseline: Neuro:. Current symptoms: Currently, the patient is not experiencing any symptoms, the patient feels back to baseline. The patient has not experienced similar symptoms in the past. 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 vg1 Historical: - Allergies: 13:57 Sulfa (Sulfonamide Antibiotics); vg1 - Home Meds: 13:57 clonazepam 2 mg Oral tab nightly [Active]; duloxetine 90 mg Oral cpDR 1 cap once daily vg1 [Active]; lithium carbonate 600 mg Oral cap daily [Active]; losartan 100 mg Oral tab 1 tab once daily [Active]; propranolol 80 mg Oral tab 1 tab 2 times per day [Active]; - PMHx: 13:57 Anxiety; Arrythmia; Bipolar disorder; depression, anxiety, insomnia; fatty liver; Gout; vg1 High Cholesterol; Hypertension; - PSHx: 13:57 section; Cholecystectomy; vg1 - Immunization history:: Client reports receiving the 2nd dose of the Covid vaccine. - Social history:: Smoking status: Patient denies any tobacco usage or history of. - Family history:: not pertinent. ROS: 14:10 Constitutional: Negative for fever, chills, and weight loss, Eyes: Negative for injury, lori pain, redness, and discharge, ENT: Negative for injury, pain, and discharge, Neck: Negative for injury, pain, and swelling, Cardiovascular: Negative for chest pain, palpitations, and edema, Respiratory: Negative for shortness of breath, cough, wheezing, and pleuritic chest pain, Abdomen/GI: Negative for abdominal pain, nausea, vomiting, diarrhea, and constipation, Back: Negative for injury and pain, : Negative for injury, bleeding, discharge, and swelling, MS/Extremity: Negative for injury and deformity, Skin: Negative for injury, rash, and discoloration, Psych: Negative for depression, anxiety, suicide ideation, homicidal ideation, and hallucinations, Allergy/Immunology: Negative for hives, rash, and allergies, Endocrine: Negative for neck swelling, polydipsia, polyuria, polyphagia, and marked weight changes, Hematologic/Lymphatic: Negative for swollen nodes, abnormal bleeding, and unusual bruising. 14:10 Neuro: Positive for weakness, of the forehead, left ear, left cheek, left sikh and left jaw. Exam: 14:10 Constitutional: This is a well developed, well nourished patient who is awake, alert, lori and in no acute distress. Eyes: Pupils equal round and reactive to light, extra-ocular motions intact. Lids and lashes normal. Conjunctiva and sclera are non-icteric and not injected. Cornea within normal limits. Periorbital areas with no swelling, redness, or edema. ENT: Nares patent. No nasal discharge, no septal abnormalities noted. Tympanic membranes are normal and external auditory canals are clear. Oropharynx with no redness, swelling, or masses, exudates, or evidence of obstruction, uvula midline. Mucous membranes moist. Neck: Trachea midline, no thyromegaly or masses palpated, and no cervical lymphadenopathy. Supple, full range of motion without nuchal rigidity, or vertebral point tenderness. No Meningismus. Chest/axilla: Normal chest wall appearance and motion. Nontender with no deformity. No lesions are appreciated. Cardiovascular: Regular rate and rhythm with a normal S1 and S2. No gallops, murmurs, or rubs. Normal PMI, no JVD. No pulse deficits. Respiratory: Lungs have equal breath sounds bilaterally, clear to auscultation and percussion. No rales, rhonchi or wheezes noted. No increased work of breathing, no retractions or nasal flaring. Abdomen/GI: Soft, non-tender, with normal bowel sounds. No distension or tympany. No guarding or rebound. No evidence of tenderness throughout. Back: No spinal tenderness. No costovertebral tenderness. Full range of motion. Pelvic Exam: Normal external genitalia. Speculum exam with closed cervical os, no discharge or bleeding noted. Bimanual exam with normal adnexa, no adnexal or cervical motion tenderness. Normal uterus. Female : Normal external genitalia. Skin: Warm, dry with normal turgor. Normal color with no rashes, no lesions, and no evidence of cellulitis. MS/ Extremity: Pulses equal, no cyanosis. Neurovascular intact. Full, normal range of motion. Neuro: Awake and alert, GCS 15, oriented to person, place, time, and situation. Cranial nerves II-XII grossly intact. Motor strength 5/5 in all extremities. Sensory grossly intact. Cerebellar exam normal. Normal gait. Psych: Awake, alert, with orientation to person, place and time. Behavior, mood, and affect are within normal limits. 14:10 Neuro: Orientation: is normal, appropriate for stated age, no acute changes, Mentation: is normal, appropriate for stated age, no acute changes, Memory: is normal, appropriate for stated age, no acute changes, Cranial nerves: facial droop noted on left, with forehead involved. Cerebellar function: is grossly normal, is grossly normal based on the patient's age, no acute changes, Motor: is normal, is grossly normal based on the patient's age, no acute changes, Sensation: is normal, no obvious gross deficits, appropriate no acute changes, Gait: not applicable unable to assess, is steady, Deep tendon reflexes are 2+ (normal) in the bilateral brachioradialis, bicep, tricep and patellar and Achilles tendons, Babinski testing is normal, seizure activity, is not displayed by the patient. Vital Signs: 13:53 BP 134 / 78; Pulse 93; Resp 16; Temp 97.9; Pulse Ox 100% ; Weight 86.18 kg; Height 5 vg1 ft. 6 in. (167.64 cm); Pain 6/10; 13:53 Body Mass Index 30.67 (86.18 kg, 167.64 cm) vg1 MDM: 14:14 Data reviewed: vital signs, nurses notes. Data interpreted: night monitor: not lori applicable for this patient encounter. rate is 100 beats/min, rhythm is regular, Pulse oximetry: on room air is 100 %. Counseling: I had a detailed discussion with the patient and/or guardian regarding: the historical points, exam findings, and any diagnostic results supporting the discharge/admit diagnosis, the need for outpatient follow up, for definitive care, a family practitioner, a neurologist. 14:16 Patient medically screened. [facility] Administered Medications: No medications were administered Disposition Summary: 03/13/21 14:16 Discharge Ordered Location: Home lori Problem: new lori Symptoms: have improved lori Condition: Stable lori Diagnosis - Jane's palsy lori Followup: lori - With: Private Physician - When: 2 - 3 days - Reason: Recheck today's complaints, Continuance of care, Re-evaluation by your physician Followup: lori - With: Vasyl Sawant MD - When: 2 - 3 days - Reason: Recheck today's complaints, Re-evaluation by your physician Discharge Instructions: - Discharge Summary Sheet lori - Jane Palsy, Adult [facility] Forms: - Medication Reconciliation Form lori - Thank You Letter lori - Antibiotic Education lori - Prescription Opioid Use [facility] Prescriptions: - Artificial Tears (PF) - instill 1 application by OPHTHALMIC route 8 times per day; 10 milliliter; [facility] Refills: 0, Product Selection Permitted - Valtrex 1 gram Oral tablet - take 1 tablet by ORAL route 3 times per day; 21 tablet; Refills: 0, Product [facility] Selection Permitted - Prednisone 20 mg Oral Tablet - take 3 tablets by ORAL route once daily for 5 days; 15 tablet; Refills: 0, [facility] Product Selection Permitted Signatures: Bal Dowling MD MD cha Garcia, Victoria, RN RN vg1
[2021-03-13 14:58] VITALS: BP 134/78; TEMP 97.9; O2SAT 100
== END 2021-03-13 14:41 | disposition home or self-care (01) ==
LOC: ER 13:11
DX: G51.0 Bell's palsy (principal); I11.0 Hypertensive heart disease with heart failure; F31.9 Bipolar disorder, unspecified; E78.00 Pure hypercholesterolemia, unspecified; Z88.2 Allergy status to sulfonamides
CPT/HCPCS: J7512

== ENCOUNTER 2021-03-24 01:49 | Emergency (ER) | payer SELFPAY ==
--- OUTSIDE RECORDS SUMMARY | 2021-03-24 01:53 | XMS REPORT | Continuity of Care Document ---
:1975 Author Organization [facility] t Address [address] [place] [address] Care Team Providers Name Role Phone PCP, DOES NOT HAVE A Primary Care Physician Unavailable NICK MITCHELL Attending Clinician Unavailable NICK MITCHELL Attending Clinician Unavailable Sherman BAUER, P Attending Clinician Pcp-Lab Attending Clinician Unavailable KACIE Attending Clinician Unavailable KACIE Attending Clinician Unavailable Darryn Archibald DO Attending Clinician Milton MLEGOZA Attending Clinician Doctor Unassigned, Name Attending Clinician Unavailable Payers Payer Name Policy Type Policy Number Effective Date Expiration Date S ource Problems Condition Condition Condition Status Onset Resolution Last Treating Co mments Source Name Details Category Date Date Treatment Clinician Date No known No known Disease Unive rs active active ity of problems problems [place] [facility] Allergies, Adverse Reactions, Alerts Allergy Allergy Status Severity Reaction(s) Onset Inactive Treating Comm ents Source Name Type Date Date Clinician SULFA Drug Active Hives 2018-0 Univers (SULFONA Class 4-24 ity of MIDE 00:00: [place] ANTIBIOT 00 Medical ICS) Branch Sulfa Propensi Active Hives 2019-0 Univers (Sulfona ty to 4-24 ity of mide adverse 00:00: [place] Antibiot reaction 00 Medica l ics) s Branch Social History Social Habit Start Date Stop Date Quantity Comments Source Exposure to Not sure [facility] SARS-CoV-2 (event) Medica l Branch Tobacco use and 2019-08-06 2019-08-06 Never used [facility] exposure 00:00:00 00:00:00 Medical Branch Sex Ass[birth year] [facility] 00:00:00 00:00:00 Medical Branch Smoking Status Start Date Stop Date Source Never smoker [facility] Medications Ordered Filled Start Stop Current Ordering Indication Dosage Frequency Signature Comments Components Source Medication Medication Date Date Medication? Clinician (SIG) Name Name lithium 600 2020-02 Yes [id number] 600mg Take 1 Univers mg capsule 2-20 capsule by ity of 00:00: mouth 2 [place] 00 (two) Medical times [place] daily. DULoxetine 2020-02 Yes [id number] 60mg Take 1 U nivers 60 mg 2-20 capsule by ity of capsule 00:00: mouth 2 [place] 00 (two) Medical times [place] daily. traZODone 2020-02 Yes [id number] 50mg Take 1 U nivers 50 mg 2-20 tablet by ity of tablet 00:00: mouth at [place] 00 bedtime. Medical May cut Branch tablet in half. clonazePAM 2020-02 Yes [id number] Take no Univers 1 mg tablet 1-17 more than ity of 00:00: 1 mg twice [place] 00 daily as Medical needed for Branch anxiety butalbital- Yes [id number] 1{tbl} Take 1 Univers acetaminoph 7-22 tablet by ity of en-caff 00:00: mouth [place] 50-325-40 00 every 6 Medical mg tablet (six) Branch hours as needed for Pain (scale 7-10). ondansetron Yes [id number] 4mg Take 1 Univers (ZOFRAN 7-22 tablet by ity of ODT) 4 mg 00:00: mouth [place] disintegrat 00 every 8 Medic al ing tablet (eight) Branch hours as needed for Nausea and Vomiting (N/V). FUROSEMIDE Yes 40mg Take 40 mg U nivers ORAL 6-24 by mouth ity of 13:17: daily. [place] [address] Medical [place] allopurinoL Yes 100mg Take 100 U nivers 100 mg 6-24 mg by ity of tablet 13:17: mouth [place] 52 daily. Medical Branch atorvastati 2019-0 Yes 10mg Take 10 mg Univers n 10 mg 6-24 by mouth ity of tablet 13:17: at [place] 52 bedtime. Medical Branch propranolol 2019-0 Yes 80mg Take 80 mg Univers 80 mg 6-24 by mouth 2 ity of tablet 13:12: (two) [place] 38 times Medical daily. Branch losartan Yes [facility] potassium 6-24 mouth. ity of (LOSARTAN 13:10: [place] ORAL) 57 Medical Branch Vital Signs Vital Name Observation Time Observation Value Comments Source Systolic blood 2021-03-16 17:17:00 132 mm[Hg] [facility] sity of pressure [facility] Diastolic blood 2021-03-16 17:17:00 78 mm[Hg] [facility] Heart rate 2021-03-16 17:17:00 80 /min [facility] Respiratory rate 2021-03-16 17:17:00 18 /min [facility] Body height 2021-03-16 17:17:00 167.6 cm [facility] Body weight 2021-03-16 17:17:00 86.183 kg [facility] BMI 2021-03-16 17:17:00 30.67 kg/m2 [facility] Oxygen saturation in 2021-03-11 19:00:00 96 /min [facility] Arterial blood by [facility] Pulse oximetry [place] Body temperature 2021-03-11 15:43:00 36.44 Verna [facility] Procedures Procedure Date / Time Performing Clinician Source Performed LITHIUM 2021-03-16 17:12:00 Patsy Gonzalez o f [facility] LITHIUM 2021-03-11 16:01:00 Halima Archibald [facility] CBC WITH DIFF 2021-03-11 16:01:00 Halima Archibald [facility] COMP. METABOLIC PANEL 2021-03-11 16:01:00 Halima Archibald [facility] ([id number]) [facility] CONSENT/REFUSAL FOR 2021-03-11 15:28:30 Doctor Unassigned, [facility] DIAGNOSIS AND TREATMENT [place] [facility] EMERGENCY SERVICES 2021-03-11 06:01:00 Doctor Unassigned, [facility] AGREEMENTS AND [place] [facility] AUTHORIZATIONS COMP. METABOLIC PANEL 2021-03-08 18:01:00 Patsy Gonzalez [facility] ([id number]) Medical Branch LITHIUM 2021-03-08 18:01:00 Patsy Gonzalez [place] o f [facility] THYROID STIMULATING 2021-03-08 18:01:00 Patsy Gonzalez [facility] HORMONE [facility] Branch Encounters Start End Encounter Admission Attending Care Care Encounter Source Date/Time Date/Time Type Type Clinicians Facility Department ID 2021-03-29 2021-03-29 Outpatient SALLY FIGUEROA [facility] [id number] [facility] 08:40:00 08:40:00 SALLY MITCHELL [id number] [facility] 2021-03-21 2021-03-21 Outpatient SALLY FIGUEROA [facility] [id number] Univers 08:00:00 08:00:00 SALLY MITCHELL [id number] [facility] 2021-03-21 2021-03-21 Outpatient SALLY FIGUEROA [facility] [id number] Univers 08:00:00 08:00:00 SALLY MITCHELL [facility] 2021-03-16 2021-03-16 Director Medical Writing Raleigh Whitaker 1.2.840.1 [id number] Univers 13:15:00 13:30:00 Visit Pcp-Lab 14117.1.1 ity of 3.104.2.7 [place] .3.304409 Medica l .8 Branch 2021-03-16 2021-03-16 Outpatient UNA DELGADILLO [facility] [id number] Univers 12:00:00 12:09:51 UNA HESTER [facility] 2021-03-16 2021-03-16 Travel 1.2.840.1 1.2.922.282 [id number] Univers 00:00:00 00:00:00 75272.1.1 350.1.13.10 ity of 3.104.2.7 4.[place].7.3.698 [place] .3.821126 084.8 Medica l .8 [place] 2021-03-11 2021-03-11 Emergency Dragan, 1.2.840.3 [id number] [facility] 09:44:00 13:06:00 Halima Cates 22727.1.1 ity of 3.104.2.7 [place] .3.049422 Medica l .8 [place] 2021-03-11 2021-03-11 Travel 1.2.840.1 1.2.104.558 [id number] [facility] 00:00:00 00:00:00 40233.1.1 350.1.13.10 ity of 3.104.2.7 [place]7.3.698 [place] .3.409702 084.8 Medica l .8 [place] 2021-03-08 2021-03-08 Director Medical Writing Raleigh Whitaker 1.2.840.1 [id number] [facility] 15:00:00 15:15:00 Visit Pcp-Lab 22740.1.1 ity of 3.104.2.7 [place] .3.525739 Medica l .8 [place] 2020-12-29 2020-12-29 Travel 1.2.840.1 1.2.351.829 [id number] Univers 00:00:00 00:00:00 47793.1.1 350.1.13.10 ity of 3.104.2.7 4.[place].7.3.698 [place] .3.134071 084.8 Medica l .8 [place] 2020-09-02 2020-09-02 Emergency Rose, [facility] 1.2.840.114 [id number] 16:12:00 20:21:00 Patti Wallace 350.1.13.10 Katherine 4.2.7.2.686 Josephine [id number] 2020-09-02 2020-09-02 Orders Doctor MOO 1.2.840.114 [id number] 00:00:00 00:00:00 Only Unassigned, QUITA 350.1.13.10 [place] [facility] 4.2.7.2.686 [id number] Results Test Description Test Time Test Comments Results Result Comments Source LITHIUM 2021-03-16 19:57:20 Test Item Value Reference Range Interpretation Comme nts [place] (test code = 7025768138) 0.8 mmol/L 0.6-1.2 ZAINAB (test code = ZAINAB) Toxic Range: ? Greater than 1.2 mmol/L Lab Interpretation (test code = 88583-7) Normal [facility] WITH [id number] 16:58:12 Test Item Value Reference Range Interpretation Comments WBC (test code = See_Comment [Automated 6690-2) message] The sy stem which generated this result transmitted reference range : 4.30 - 11.10 10*3/?L. The reference range was not used to interpret this result as normal/abnormal . RBC (test code = See_Comment [Automated 789-8) message] The sy stem which generated this [...] RDW-SD (test code = 42.7 fL 39.0-49.9 40361-9) RDW-CV (test code = 14.6 % 12.0-15.5 788-0) PLT (test code = See_Comment [Automated 777-3) message] The sy stem which generated this result transmitted reference range : 166 - 358 10*3/ ?L. The reference r kuldip was not used to interpret this result as normal/abnormal . MPV (test code = 11.8 fL 9.5-12.9 82205-3) IPF % (test code = 5.3 % 1.3-7.7 Platelet count [id number]) measured by fluorescence method. NRBC/100 WBC (test See_Comment [Automat ed code = 5211114220) message] The system which generated this result transmitted reference range : 0.0 - 10.0 /100 WBCs. The refer ence range was not u sed to interpret th is result as normal/abnormal . NRBC x10^3 (test code See_Comment [Auto mated = 7021968744) message] The s ystem which generated this result transmitted reference range : 10*3/?L. The reference range was not used to interpret this result as normal/abnormal . GRAN MAT (NEUT) % 65.5 % (test code = 770-8) IMM GRAN % (test code 0.30 % = 8281814905) LYMPH % (test code = 21.6 % 736-9) MONO % (test code = 5.9 % 5905-5) EOS % (test code = 5.7 % 713-8) BASO % (test code = 1.0 % 706-2) GRAN MAT x10^3(ANC) 3.79 10*3/uL 1.88-7.09 (test code = 2896548780) IMM GRAN x10^3 (test <0.03 0.00-0.06 code = 0269986038) LYMPH x10^3 (test code 1.25 10*3/uL 1.32-3.29 L = 731-0) MONO x10^3 (test code 0.34 10*3/uL 0.33-0.92 = 742-7) EOS x10^3 (test code = 0.33 10*3/uL 0.03-0.39 711-2) BASO x10^3 (test code 0.06 10*3/uL 0.01-0.07 = 704-7) PLT ESTIMATE (test Normal Normal code = 9317-9) Lab Interpretation Abnormal (test code = 31898-0) [facility][id number][facility]11 16:41:49 Test Item Value Reference Range Interpretation Comments NA (test code = 136 mmol/L 135-145 9892817392) K (test code = 4.9 mmol/L 3.5-5.0 0318636912) CL (test code = 105 mmol/L 98-108 1009507912) CO2 TOTAL (test code 23 mmol/L 23-31 = 2189697368) AGAP (test code = 2-16 7834928381) BUN (test code = 10 mg/dL 7-23 5548420533) GLUCOSE (test code = 101 mg/dL 70-110 8348615949) CREATININE (test code 0.57 mg/dL 0.50-1.04 = 7456370513) TOTAL BILI (test code 0.5 mg/dL 0.1-1.1 = 3263504766) CALCIUM (test code = 9.1 mg/dL 8.6-10.6 2626500107) T PROTEIN (test code 7.2 g/dL 6.3-8.2 = 1163367255) ALBUMIN (test code = 4.3 g/dL 3.5-5.0 0528407209) ALK PHOS (test code = 115 U/L 34-122 3780029046) ALTv (test code = 26 U/L 5-35 2-6) AST(SGOT) (test code 35 U/L 13-40 = 8098775260) eGFR (test code = mL/min/1.73m2 9119815472) ZAINAB (test code = ZAINAB) Association of [...] or urine or abnormalities in imaging tests). [facility] [id number] 02:11:55 Test Item Value Reference Range Interpretation Comments TSH (test code = See_Comment [Automated message] 9731259277) The system [employer] generated this result transmitted ref erence range: 0.45 - 4 .70 mIU/L. The refe rence range was not u sed to interpret this result as normal/abnor mal. Lab Interpretation (test Normal code = 85100-9) [facility] RISK)2018-07-20 07:27:00 Test Item Value [...] VERY HIGH...... ...>/= 190 mg/dL Comments to Telephoto Engineer: ADD TO AM LABSLIPID PROFILE (CORONARY RISK)2018-07-20 [...] MG/DL 0-99 code = LDL) Comments to Telephoto Engineer: ADD TO AM LABSPROTHROMBIN [id number] 06:24:00 Test Item Value Reference Range Interpretation [...] karla embolism. 3.0 - 4.5 Comments to Telephoto Engineer: NURSE WILL BRING SPECIMEN TO LABPTT ACTIVATED 2018-07-20 06:24:00 Test Item Value Reference Range Interpretation Comments PTT ACTIVATED (test code = APTT) 29.3 SECONDS 22.0-33.0 N Comments to Telephoto Engineer: NURSE WILL BRING SPECIMEN TO LABBASIC METABOLIC [...] 9.6 MG/DL 8.4-10.2 N CA) Comments to Telephoto Engineer: NURSE WILL BRING SPECIMEN TO LAB Comments to Telephoto Engineer: NURSE WILL BRING SPECIMEN TO [id number] 06:13:00 Test Item Value Reference Range Interpretation Comments MAGNESIUM (test code = MAG) 2.2 MG/DL 1.6-2.3 N Comments to Telephoto Engineer: NURSE WILL BRING SPECIMEN TO LAB Comments to Telephoto Engineer: NURSE WILL BRING SPECIMEN TO LABCBC W/AUTO [id number] 06:02:00 Test Item Value Reference Range Interpretation [...]
[2021-03-24 02:34] LABS: Absolute Lymphocytes (CBC) 2.5 K/uL (0.7-4.9); Hematocrit 31.8 % (36.0-45.0); Lymphocytes % 22.3 % (15.3-44.8); RBC Red Blood Cell Count 4.02 M/uL (3.86-4.86)
[2021-03-24 04:36] LABS: BUN Blood Urea Nitrogen 11 mg/dL (7-18); Bicarbonate 28 mmol/L (21-32); Glucose Level 113 mg/dL (74-106); Potassium 3.3 mmol/L (3.5-5.1); Sodium Level 141 mmol/L (136-145)
[2021-03-24 05:17] LABS: NT PRO-BNP 29 pg/mL (<125)
--- NOTE | 2021-03-24 05:29 | ER ---
Nurse's Notes [facility] Name: Shivani Lagunas Age: 45 yrs Sex: Female : 1975 Arrival Date: 03/24/2021 Time: 01:52 Bed 6 Private MD: Diagnosis: Chest pain, unspecified;Anxiety disorder, unspecified Presentation: 03/24 02:06 Chief complaint: Patient states: chest pain and pressure starting around 2pm, states sm5 she felt like she had two hearts beating inside of her, numbness and pain radiating to arm around midnight. hx of anxiety, took clonazepam prior to arrival. Coronavirus screen: Vaccine status: Patient reports receiving the 2nd dose of the covid vaccine. Ebola Screen: No symptoms or risks identified at this time. Initial Sepsis Screen: Does the patient meet any 2 criteria? No. Patient's initial sepsis screen is negative. Does the patient have a suspected source of infection? No. Patient's initial sepsis screen is negative. Risk Assessment: Do you want to hurt yourself or someone else? Patient reports no desire to harm self or others. Onset of symptoms was March 23, 2021 at 14:00. 02:06 Method Of Arrival: Ambulatory 5 02:06 Acuity: ALICIA 3 sm5 Triage Assessment: 02:08 General: Appears in no apparent distress. Behavior is cooperative. Pain: Complains of sm5 pain in chest Pain radiates to left arm Quality of pain is described as pressure. Neuro: No deficits noted. Level of Consciousness is awake, alert, obeys commands, Oriented to person, place, time, situation. Cardiovascular: Reports chest pain, palpitations, shortness of breath, Capillary refill < 3 seconds Patient's skin is warm and dry. Respiratory: No deficits noted. Airway is patent Trachea midline Respiratory effort is even, unlabored. Historical: - Allergies: 02:07 Sulfa (Sulfonamide Antibiotics); sm5 - Home Meds: 02:07 allopurinol 100 mg Oral tab 1 tab once daily [Active]; alprazolam 0.5 mg Oral tab sm5 [Active]; atorvastatin 10 mg Oral tab 1 tab once daily [Active]; clonazepam 2 mg Oral tab nightly [Active]; duloxetine 90 mg Oral cpDR 1 cap once daily [Active]; lithium carbonate 600 mg Oral cap daily [Active]; losartan 100 mg Oral tab 1 tab once daily [Active]; propranolol 80 mg Oral tab 1 tab 2 times per day [Active]; spironolactone 25 mg Oral tab 1 tab once daily [Active]; zolpidem 10 mg Oral tab once daily [Active]; - PMHx: 02:07 Anxiety; Arrythmia; Bipolar disorder; depression, anxiety, insomnia; fatty liver; Gout; sm5 High Cholesterol; Hypertension; - PSHx: 02:07 section; Cholecystectomy; sm5 - Immunization history:: Client reports receiving the 2nd dose of the Covid vaccine. - Social history:: Smoking status: unknown. - Family history:: not pertinent. - Hospitalizations: : No recent hospitalization is reported. Screenin:15 Abuse screen: Denies threats or abuse. Nutritional screening: No deficits noted. st1 Tuberculosis screening: No symptoms or risk factors identified. Fall Risk None identified. No fall in past 12 months (0 pts). No secondary diagnosis (0 pts). IV access (20 points). Ambulatory Aid- None/Bed Rest/Nurse Assist (0 pts). Gait- Normal/Bed Rest/Wheelchair (0 pts) Mental Status- Oriented to own ability (0 pts). Total Rodriguez Fall Scale indicates No Risk (0-24 pts). Assessment: 02:15 Reassessment: Patient appears in no apparent distress at this time. No changes from st1 previously documented assessment. 06:07 Reassessment: Patient appears in no apparent distress at this time. No changes from ll3 previously documented assessment. Patient is alert, oriented x 3, equal unlabored respirations, skin warm/dry/pink. Vital Signs: 02:00 BP 141 / 67; Pulse 82; Resp 16; Pulse Ox 98% on R/A; st1 02:06 BP 130 / 69; Pulse 73; Resp 18; Pulse Ox 100% on R/A; Weight 87.54 kg; Height 5 ft. 6 sm5 in. (167.64 cm); Pain 4/10; 03:00 BP 142 / 76; Pulse 77; Resp 18; Pulse Ox 100% ; ll3 04:00 BP 145 / 70; Pulse 81; Resp 18; Pulse Ox 100% ; ll3 05:00 BP 146 / 63; Pulse 82; Resp 19; Pulse Ox 100% ; ll3 02:06 Body Mass Index 31.15 (87.54 kg, 167.64 cm) [facility] ED Course: 01:52 Patient arrived in ED. ja2 01:56 Jean Carlos Andrews MD is Attending Physician. rn 02:07 Triage completed. 5 02:09 Arm band placed on right wrist. EKG completed in triage. Results shown to MD. 5 02:14 Basic Metabolic Panel Sent. st1 02:14 CBC with Diff Sent. st1 02:15 Patient has correct armband on for positive identification. Bed in low position. Call st1 light in reach. Side rails up X 1. cafeteria monitor on. Pulse ox on. NIBP on. 02:15 NT PRO-BNP Sent. st1 02:15 Troponin HS Sent. st1 02:15 XRAY Chest (1 view) Sent. st1 02:16 Inserted saline lock: 22 gauge in left antecubital area, using aseptic technique. st1 02:18 XRAY Chest (1 view) In Process Unspecified. EDIL 03:05 Lyudmila Mehta, RN is Primary Nurse. st1 06:07 No provider procedures requiring assistance completed. IV discontinued, intact, ll3 bleeding controlled, No redness/swelling at site. Pressure dressing applied. Patient maintains SpO2 saturation greater than 95% on room air. Administered Medications: No medications were administered Outcome: 05:28 Discharge ordered by MD. rn 06:07 Discharged to home ambulatory. ll3 06:07 Condition: stable 06:07 Discharge instructions given to patient, Instructed on discharge instructions, follow up and referral plans. Demonstrated understanding of instructions, follow-up care. 06:08 Patient left the ED. ll3 Signatures: Dispatcher [employer] EDIL Jean Carlos Andrews MD MD rn Alexander, Jessica ja2 Madeleine Ardon RN RN 3 Yesika Persaud RN RN 5 Lyudmila Mehta, RN RN st1
--- NOTE | 2021-03-24 05:29 | EDPHYS ---
Physician Documentation [facility] Name: Shivani Lagunas Age: 45 yrs Sex: Female : 1975 Arrival Date: 03/24/2021 Time: 01:52 Bed 6 Private MD: ED Physician Jean Carlos Andrews HPI: 03/24 02:16 This 45 yrs old Female presents to ER via Ambulatory with complaints of chest rn pain, sob, palpitations. 02:16 The patient or guardian reports chest pain that is located primarily in the substernal rn area. Onset: yesterday. The pain radiates to the left arm. Associated signs and symptoms: Pertinent positives: palpitations, shortness of breath, Pertinent negatives: abdominal pain, cough, lower extremity pain, syncope. The chest pain is described as aching, a pressure. Duration: The patient or guardian reports a single episode, that is still ongoing. Modifying factors: The symptoms are alleviated by clonazepam. Severity of pain: At its worst the pain was moderate in the emergency department the pain has improved. It is unknown whether or not the patient has had similar symptoms in the past. The patient has been recently seen by a physician:. Pt reports onset of palpitations/sob/chest pressure and sensation of "devil inside". Reports thought was her anxiety and took her clonazepam that resolved all of her symptoms except for chest pain. Chest pain has improved but not resolved. . Historical: - Allergies: 02:07 Sulfa (Sulfonamide Antibiotics); sm5 - Home Meds: 02:07 allopurinol 100 mg Oral tab 1 tab once daily [Active]; alprazolam 0.5 mg Oral tab sm5 [Active]; atorvastatin 10 mg Oral tab 1 tab once daily [Active]; clonazepam 2 mg Oral tab nightly [Active]; duloxetine 90 mg Oral cpDR 1 cap once daily [Active]; lithium carbonate 600 mg Oral cap daily [Active]; losartan 100 mg Oral tab 1 tab once daily [Active]; propranolol 80 mg Oral tab 1 tab 2 times per day [Active]; spironolactone 25 mg Oral tab 1 tab once daily [Active]; zolpidem 10 mg Oral tab once daily [Active]; - PMHx: 02:07 Anxiety; Arrythmia; Bipolar disorder; depression, anxiety, insomnia; fatty liver; Gout; sm5 High Cholesterol; Hypertension; - PSHx: 02:07 section; Cholecystectomy; sm5 - Immunization history:: Client reports receiving the 2nd dose of the Covid vaccine. - Social history:: Smoking status: unknown. - Family history:: not pertinent. - Hospitalizations: : No recent hospitalization is reported. ROS: 02:16 Constitutional: Negative for fever, chills, and weight loss, Eyes: Negative for injury, rn pain, redness, and discharge, Neck: Negative for injury, pain, and swelling, Cardiovascular: Negative for edema Respiratory: Negative for cough, wheezing, and pleuritic chest pain, Abdomen/GI: Negative for abdominal pain, nausea, vomiting, diarrhea, and constipation, : Negative for injury, bleeding, discharge, and swelling, MS/Extremity: Negative for injury and deformity, Skin: Negative for injury, rash, and discoloration, Neuro: Negative for headache, weakness, numbness, tingling, and seizure. Exam: 02:09 ECG was reviewed by the Attending Physician. rn 02:16 Constitutional: This is a well developed, well nourished patient who is awake, alert, rn and in no acute distress. Head/Face: Normocephalic, atraumatic. Eyes: Periorbital areas with no swelling, redness, or edema. Cardiovascular: Regular rate and rhythm. No pulse deficits. Respiratory: No increased work of breathing, no retractions or nasal flaring. Abdomen/GI: Soft, non-tender Skin: Warm, dry MS/ Extremity: Pulses equal, no cyanosis. Neuro: Awake and alert, GCS 15, oriented to person, place, time, and situation. + left sided Jane's Palsy. Motor strength 5/5 in all extremities. Sensory grossly intact. Cerebellar exam normal. Normal gait. Vital Signs: 02:00 BP 141 / 67; Pulse 82; Resp 16; Pulse Ox 98% on R/A; st1 02:06 BP 130 / 69; Pulse 73; Resp 18; Pulse Ox 100% on R/A; Weight 87.54 kg; Height 5 ft. 6 sm5 in. (167.64 cm); Pain 4/10; 03:00 BP 142 / 76; Pulse 77; Resp 18; Pulse Ox 100% ; ll3 04:00 BP 145 / 70; Pulse 81; Resp 18; Pulse Ox 100% ; ll3 05:00 BP 146 / 63; Pulse 82; Resp 19; Pulse Ox 100% ; ll3 02:06 Body Mass Index 31.15 (87.54 kg, 167.64 cm) 5 MDM: 01:56 Patient medically screened. rn 05:22 Differential diagnosis: acute myocardial infarction, acute pericarditis, anxiety, rn coronary artery disease costochondritis, pericarditis, pleurisy, pneumothorax. Data reviewed: vital signs, nurses notes, lab test result(s), EKG, radiologic studies, plain films, and as a result, I will discharge patient. Data interpreted: Pulse oximetry: on. 05:27 Counseling: I had a detailed discussion with the patient and/or guardian regarding: the rn historical points, exam findings, and any diagnostic results supporting the discharge/admit diagnosis, lab results, radiology results, the need for outpatient follow up, to return to the emergency department if symptoms worsen or persist or if there are any questions or concerns that arise at home. Response to treatment: the patient's symptoms have markedly improved after treatment, the patient's condition has returned to base line, the patient is now symptom free, and as a result, I will discharge patient. Special discussion: Based on the patient's history, exam, and Dx evaluation, there is no indication for emergent intervention or inpatient Tx. It is understood by the patient/guardian that if the Sx's persist or worsen they need to return immediately for re-evaluation. I discussed with the patient/guardian in detail that at this point there is no indication for admission to the hospital. It is understood, however, that if the symptoms persist or worsen the patient needs to return immediately for re-evaluation. 03/24 02:03 Order name: Basic Metabolic Panel; Complete Time: : rn 03/24 02:03 Order name: CBC with Diff; Complete Time: 03:57 rn 03/24 02:03 Order name: NT PRO-BNP; Complete Time: rn 03/24 02:03 Order name: Troponin HS; Complete Time: rn 03/24 02:03 Order name: XRAY Chest (1 view) rn 03/24 02:03 Order name: EKG; Complete Time: 02:04 rn 03/24 02:03 Order name: Cardiac monitoring; Complete Time: 02:14 rn 03/24 02:03 Order name: EKG - Nurse/Tech; Complete Time: 02:12 rn 03/24 02:03 Order name: IV Saline Lock; Complete Time: : rn 03/24 02:03 Order name: Labs collected and sent; Complete Time: : rn 03/24 02:03 Order name: O2 Per Protocol; Complete Time: 02:13 rn 03/24 02:03 Order name: O2 Sat Monitoring; Complete Time: : rn EC:09 Rate is 67 beats/min. Rhythm is regular. QRS Campbell is Normal. OH interval is normal. QRS rn interval is normal. QT interval is normal. No Q waves. T waves are Normal. No ST changes noted. Clinical impression: NSR w/ Non-specific ST/T Changes. Interpreted by me. Reviewed by me. Administered Medications: No medications were administered Disposition Summary: 03/24/21 05:28 Discharge Ordered Location: Home rn Problem: new rn Symptoms: have improved rn Condition: Stable rn Diagnosis - Chest pain, unspecified rn - Anxiety disorder, unspecified rn Followup: rn - With: Private Physician - When: As needed - Reason: Recheck today's complaints, Re-evaluation by your physician Discharge Instructions: - Discharge Summary Sheet rn - Nonspecific Chest Pain, Adult rn - Hypertension, Adult rn - Generalized Anxiety Disorder, Adult rn Forms: - Medication Reconciliation Form rn - Thank You Letter rn - Antibiotic government relations director - Prescription Opioid Use rn Signatures: Dispatcher [employer] Jean Carlos Martinez MD MD rn Mazur, Sarah, RN RN 5
[2021-03-24 06:27] VITALS: O2SAT 100
[2021-03-24 06:31] VITALS: BP 146/63
--- NOTE | 2021-03-24 09:22 | RAD REPORT ---
EXAM DESCRIPTION: RAD - Chest Single View - 03/24/2021 2:18 am CLINICAL HISTORY: CHEST PAIN Chest pain. COMPARISON: Chest Single View dated 05/13/2020; Chest Single View dated 04/16/2020; Chest Single View da mehreen 05/17/2019; Chest Single View dated 08/11/2018 FINDINGS: Portable technique limits examination quality. Mild interstitial prominence may represent a viral infection or interstitial pulmonary edema. The hea rt is normal in size. No displaced fractures.
== END 2021-03-24 06:08 | disposition home or self-care (01) ==
LOC: ER 01:49
DX: F41.9 Anxiety disorder, unspecified (principal); I10 Essential (primary) hypertension; F31.9 Bipolar disorder, unspecified; E78.00 Pure hypercholesterolemia, unspecified
CPT/HCPCS: 36415; 71045; 80048; 83880; 84484; 85025; 93005; 99285

== ENCOUNTER 2021-07-12 11:20 | Emergency (ER) | payer SELFPAY ==
--- OUTSIDE RECORDS SUMMARY | 2021-07-12 11:23 | XMS REPORT | Continuity of Care Document ---
:1975 Author Organization [facility] t Address [address] [place] [address] Care Team Providers Name Role Phone PCP, DOES NOT HAVE A Primary Care Physician Unavailable SELF Attending Clinician Unavailable Pal BAUER, Low Attending Clinician Singer PATEL Attending Clinician Doctor Unassigned, Name Attending Clinician Unavailable Robert Best MD Attending Clinician Pcp-Lab Attending Clinician Unavailable Marycruz VAZQUEZ Attending Clinician Milton MELGOZA Attending Clinician Payers Payer Name Policy Type Policy Number Effective Date Expiration Date S ource Problems Condition Condition Condition Status Onset Resolution Last Treating Co mments Source Name Details Category Date Date Treatment Clinician Date No known No known Disease Unive rs active active ity of problems problems [place] [facility] Allergies, Adverse Reactions, Alerts Allergy Allergy Status Severity Reaction(s) Onset Inactive Treating Comm ents Source Name Type Date Date Clinician Sulfa Propensi Active Hives Univers (Sulfona ty to 4-24 ity of mide adverse 00:00: [place] Antibiot reaction 00 Medica l ics) s Branch SULFA Drug Active Hives 0 Univers (SULFONA Class 4-24 ity of MIDE 00:00: [place] ANTIBIOT 00 Medical ICS) Branch Social History Social Habit Start Date Stop Date Quantity Comments Source Exposure to 2021-05-28 2021-06-07 Not sure [facility] SARS-CoV-2 (event) 00:00:00 08:59:00 Medica l Branch Tobacco use and 2019-08-06 2019-08-06 Never used [facility] exposure 00:00:00 00:00:00 Medical Branch Sex Ass[birth year] [facility] 00:00:00 00:00:00 Medical Branch Smoking Status Start Date Stop Date Source Never smoker [facility] Medications Ordered Filled Start Stop Current Ordering Indication Dosage Frequency Signature Comments Components Source Medication Medication Date Date Medication? Clinician (SIG) Name Name lamoTRIgine 2021- Yes [id number] Take 1 Univers 25 mg 5-12 06-10 tablet by ity of tablet 00:00: 04:59 mouth [place] 00 :00 daily for Medical 14 days, Branch THEN 2 tablets daily for 14 days. lurasidone Yes [id number] Take half Univers 40 mg 5-11 a tablet ity of tablet 00:00: for 7 days [place] 00 then take Medical 1 tablet Branch daily (can take at nighttime) WITH MEALS lithium 600 0 Yes [id number] 600mg Take 1 Univers mg capsule 5-03 capsule by ity of 00:00: mouth 2 [place] 00 (two) Medical times Branch daily. DULoxetine Yes [id number] 60mg Take 1 U nivers 60 mg 4-14 capsule by ity of capsule 00:00: mouth 2 [place] 00 (two) Medical times Branch daily. traZODone Yes [id number] 50mg Take 1 U nivers 50 mg 4-14 tablet by ity of tablet 00:00: mouth at [place] 00 bedtime. Medical May cut Branch tablet in half. vitamin Yes [id number] 1000ug Take 1 U nivers B-12 1,000 4-11 tablet by ity of mcg tablet 00:00: mouth [place] 00 daily. Medical Branch cyanocobala Yes [id number] 1000ug 1 mL by Univers min 1,000 4-11 Intramuscu ity of mcg/mL 00:00: lar route [place] injection 00 weekly. Medical Branch losartan Yes 20mg Take 20 mg Uni vers potassium 4-05 by mouth. ity o f (LOSARTAN 09:24: [place] ORAL) 36 Medical Branch FUROSEMIDE Yes 40mg Take 40 mg U nivers ORAL 4-05 by mouth ity of 09:24: daily. [place] 36 Medical Branch gabapentin Yes [id number] 300mg Take 1 Univers 300 mg 4-05 capsule by ity of capsule 00:00: mouth 3 [place] 00 (three) Medical times Branch daily. rizatriptan Yes [id number] 5mg Take 1 Univers 5 mg 4-05 tablet by ity of disintegrat 00:00: [place] tablet 00 needed for Med ical Migraine Branch (Take 5mg at the beginning of the headache can repeat 2h after if headaches persists). May repeat in 2 hours if needed magnesium Yes [id number] 400mg Take 2 Univers gluconate 4-05 tablets by ity of 200 mg 00:00: mouth 2 [place] tablet 00 (two) Medical times Branch daily. artificial 2021- No [id number] 1[drp] Place 1 Univers tears,hypro 4-05 05-11 Drop in ity of [place], 00:00: 00:00 [place] 0.5 % 00 :00 as needed Medical ophthalmic for Dry Branch drops eyes. clonazePAM Yes [id number] Take no Univers 1 mg tablet 3-31 more than ity of 00:00: 1 mg twice [place] 00 daily as Medical needed for Branch anxiety lithium 600 2021- No [id number] 600mg Take 1 Univers mg capsule 3-30 - capsule by it y of 00:00: 00:00 mouth 2 [place] 00 :00 (two) Medical times Branch daily. DULoxetine 2020-02- No [id number] 60mg Take 1 Univers 60 mg 2-20 -13 capsule by ity of capsule 00:00: 00:00 mouth 2 [place] 00 :00 (two) Medical times Branch daily. traZODone 2020-02- No [id number] 50mg Take 1 Univers 50 mg 2-20 -13 tablet by ity of tablet 00:00: 00:00 mouth at [place] 00 :00 bedtime. Medical May cut Branch tablet in half. ondansetron Yes [id number] 4mg Take 1 Univers (ZOFRAN 7-22 tablet by ity of ODT) 4 mg 00:00: mouth [place] disintegrat 00 every 8 Medic al ing tablet (eight) Branch hours as needed for Nausea and Vomiting (N/V). butalbital- 2021- No [id number] 1{tbl} Take 1 Univers acetaminoph 7-22 05-11 tablet by it y of en-caff 00:00: 00:00 mouth [place] 50-325-40 00 :00 every 6 Medical mg tablet (six) Branch hours as needed for Pain (scale 7-10). allopurinoL Yes 100mg Take 100 U nivers 100 mg 6-24 mg by ity of tablet 13:17: mouth [place] 52 daily. Medical Branch atorvastati Yes 10mg Take 10 mg Univers n 10 mg 6-24 by mouth ity of tablet 13:17: at [place] [address] bedtime. Medical Branch propranolol Yes 80mg Take 80 mg Univers 80 mg 6-24 by mouth 2 ity of tablet 13:12: (two) [place] 38 times Medical daily. Branch Vital Signs Vital Name Observation Time Observation Value Comments Source Systolic blood 2021-06-07 15:30:00 131 mm[Hg] Univer sity of pressure [facility] Diastolic blood 2021-06-07 15:30:00 61 mm[Hg] [facility] rate 2021-06-07 15:30:00 78 /min [facility] Respiratory rate 2021-06-07 15:30:00 13 /min [facility] Oxygen saturation in 2021-06-07 15:30:00 96 /min [facility] Arterial blood by [facility] Pulse oximetry Branch Body temperature 2021-06-07 14:20:[address] [facility] Body height 2021-05-17 14:25:00 167.6 cm [facility] Body weight 2021-05-17 14:25:00 95.029 kg [facility] BMI 2021-05-17 14:25:00 33.81 kg/m2 [facility] Procedures Procedure Date / Time Performing Clinician Source Performed CONSENT/REFUSAL FOR 2021-06-07 13:59:49 Doctor Kike [facility] DIAGNOSIS AND TREATMENT [place] [facility] NOTICE OF PRIVACY 2021-06-07 13:59:38 Doctor Stokes [facility] PRACTICES [place] [facility] EMERGENCY SERVICES 2021-06-07 05:01:00 Doctor Kike [facility] AGREEMENTS AND [place] [facility] AUTHORIZATIONS MISCELLANEOUS SEND OUT 2021-05-17 16:17:00 [facility] VITAMIN B1 (THIAMINE), 2021-05-17 15:41:00 Robert Best [facility] [place] WHOLE BLOOD [facility] VITAMIN B6, PLASMA 2021-05-17 15:41:[address] [facility] FOLATE 2021-05-17 15:41:00 Zane Martinez [facility] THYROID STIMULATING 2021-05-17 15:41:00 Zane Martinez [facility] HORMONE [facility] VITAMIN B12, LEVEL 2021-05-17 15:41:[address] [facility] ELECTROPHORESIS, SERUM 2021-05-17 15:41:00 Robert Best [facility] GLYCOSYLATED HEMOGLOBIN 2021-05-17 15:41:00 Jones [facility] (A1C) [facility] Encounters Start End Encounter Admission Attending Care Care Encounter Source Date/Time Date/Time Type Type Clinicians Facility Department ID 2021-06-22 2021-06-22 Travel 1.2.840.1 [id number] Univers 00:00:00 00:00:00 12719.1.1 350.1.13.10 ity of 3.104.2.7 4.2.7.3.698 [place] .3.568716 084.8 Medica l .8 Branch 2021-06-20 2021-06-20 Outpatient R SELF, [facility] [id number] [facility] 11:15:00 11:15:00 DERRELL ity o f [facility] 2021-06-08 2021-06-08 Patient [place], 1.2.840.2 [id number] Univers 00:00:00 00:00:00 Secure Msg Marko 50728.1.1 ity of [place] 3.104.2.7 [place] .3.580821 Medica l .8 [place] 2021-06-07 2021-06-07 Emergency Ny, 1.2.840.8 [id number] Univers 09:13:00 10:50:00 Gigi 14411.1.1 ity of 3.104.2.7 [place] .3.551077 Medica l .8 Branch 2021-06-07 2021-06-07 Travel 1.2.840.1 [id number] [id number] Univers 00:00:00 00:00:00 11258.1.1 350.1.13.10 ity of 3.104.2.7 4.2.7.3.698 [place] .3.493562 084.8 Medica l .8 [place] 2021-06-07 2021-06-07 Orders Doctor 1.2.840.8 [id number] Univers 00:00:00 00:00:00 Only Unassigned, 93252.1.1 ity of [place] 3.104.2.7 [place] .3.481825 Medica l .8 [place] 2021-06-03 2021-06-03 Travel 1.2.840.1 1.2.709.187 [id number] Univers 00:00:00 00:00:00 65211.1.1 350.1.13.10 ity of 3.104.2.7 4.2.7.3.698 [place] .3.776538 084.8 Medica l .8 [place] 2021-05-25 2021-05-25 Patient Doctor 1.2.840.5 [id number] Univers 00:00:00 00:00:00 Secure Msg Unassigned, 38241.1.1 ity of [place] 3.104.2.7 [place] .3.822181 Medica l .8 Branch 2021-05-20 2021-05-20 Telephone Jones 1.2.840.2 [id number] Univers 00:00:00 00:00:00 Nasir, 06945.1.1 ity of [place] 3.104.2.7 [place] .3.434805 Medica l .8 Branch 2021-05-18 2021-05-18 Travel 1.2.840.1 [id number] [id number] Univers 00:00:00 00:00:00 83823.1.1 350.1.13.10 ity of 3.104.2.7 4.2.7.3.698 [place] .3.638758 084.8 Medica l .8 Branch 2021-05-17 2021-05-17 Business Attorney Marko [place] 1.2.840.1 1 [id number] Univers 13:15:00 13:30:00 Visit Pcp-Lab 98668.1.1 ity of 3.104.2.7 [place] .3.284159 Medica l .8 Branch 2021-05-17 2021-05-17 Office Marko [place] 1.2.840.1 [id number] Univers 09:00:00 10:25:05 Visit Deonte Joel 43605.1.1 ity of 3.104.2.7 [place] .3.076475 Medica l .8 Branch 2021-05-17 2021-05-17 Travel 1.2.840.1 1.2.289.800 [id number] Univers 00:00:00 00:00:00 61180.1.1 350.1.13.10 ity of 3.104.2.7 4.2.7.3.698 [place] .3.149404 084.8 Medica l .8 Branch 2020-09-02 2020-09-02 Emergency Rose, [facility] 1.2.840.114 [id number] 16:12:00 20:21:00 Patti Wallace 350.1.13.10 [place] 4.2.7.2.686 [place] [id number] 2020-09-02 2020-09-02 Orders Doctor MOO 1.2.840.114 [id number] 00:00:00 00:00:00 Only Unassigned, QUITA 350.1.13.10 [place] [facility] 4.2.7.2.686 [id number] Results Test Description Test Time Test Comments Results Result Comments Source VITAMIN B1 (THIAMINE), WHOLE BLOOD 2021-05-22 18:57:21 Test Item Value Reference Range Interpretation Comme nts Vitamin B1, Whole Blood 120 nmol/L 70-180 INTE RPRETIVE INFORMATION: Vitamin B1, (test code = 60043-7) Whole Blood This assay measures the concentration o f thiamine diphosphate (TDP), the prim marco a active form of vitamin B1. Kimi roximately 90 percent of vitamin B1 p resent in whole blood is TDP. Thiamin e and thiamine monophosphate, which comprise the remaining 10 pe rcent, are not measured. This test was developed and its performance characteristics determined by [facility]. It has not been cl eared or approved by the [place] Food and Drug Administration. This test was p erformed in a CLIA certified labor atory and is intended for clinical pu rposes.Performed By: NIL[facility] [address] [place] [address]Laboratory Director: Irena Diaz MD [facility], [id number] 02:39:55 Test Item Value Reference Range Interpretation Comments VIT B6 (test 22.6 nmol/L 20.0-125.0 INTERPRETIVE IN FORMATION: code = 17130-5) Vitamin B6 ( Pyridoxal 5-Phosphate) Py ridoxal 5'-phosphate me asured in a specimen collec mehreen following an 8- hour or overnight fast accurately indicates vitam in B6 nutritional sta tus. Non-fasting spe cimen concentration r eflects recent vitamin intake. This test was d eveloped and its perform ance characteristics determined by [facility]. It has not been cl eared or approved by the US Food and Drug Admini stration. This test was p erformed in a CLIA certifie d laboratory and is intended for clinical purposes.Perfor med By: N[facility] Laborator[facility] [address] [place], [place] [address]Ytyqbme [facility] Director: Irena Diaz MD [facility] Heights[facility]LECTROPHORESIS, [id number] 23:11:31 Test Item Value Reference Range Interpretation Comments T PROTEIN (test code = 7.8 g/dL 6.3-8.2 [id number]) ALBUMIN (test code = 3.8 g/dL 3.0-4.8 [id number]) ALPHA 1 (test code = 0.3 g/dL 0.2-0.4 3696911576) ALPHA 2 (test code = 1.0 g/dL 0.6-1.2 0176986527) BETA (test code = 1.5 g/dL 0.7-1.4 H [id number]) GAMMA (test code = 1.2 g/dL 1.0-1.8 4935993223) Electrophoresis Serum and urine Interpretation (test code protein = [id number]) electrophoresis:Inc reased beta globulin in serum.No M spike present in serum.No urine submitted for testing. Lab Interpretation (test Abnormal code = 40114-7) [facility] HEM[facility]GLOBIN (A1C)2021-05-17 21:47:42 Test Item Value Reference Range Interpretation Comments HGB A1C (test code = 5.1 % 4.0-5.7 4548-4) ZAINAB (test code = ZAINAB) Reference RangesNormal: <5.7%Prediabetes: 5.7 - 6.4%Diabetes: > 6.5% Lab Interpretation (test Normal code = 70902-6) [facility]2022-[facility]-05 21:27:53 Test Item Value Reference Range Interpretation Comments FOLATE SER (test code = 6921433824) 5.6 ng/mL 3.0-20.0 Lab Interpretation (test code = Normal 68408-0) [facility] B12, [id number] 19:45:52 Test Item Value Reference Range Interpretation Comments VIT B12 (test code = 315 pg/mL 240-930 1899235391) ZAINAB (test code = ZAINAB) Biotin has been reported to cause a positive bias, interpret results relative to patient's use of biotin. Lab Interpretation (test Normal code = 94967-4) [facility]YRO[facility] STIMULATING [id number] 19:27:03 Test Item Value Reference Range Interpretation Comments TSH (test code = See_Comment Biotin has been [id number]) reported to cau se a negative bias, interpret resul ts relative to pat maria m's use of biotin. [Automated mess age] The system Dr Lal [employer] generated this result transmitted ref erence range: 0.45 - 4 .70 mIU/L. The refe rence range was not u sed to interpret this result as normal/abnor mal. Lab Interpretation (test Normal code = 37077-0) [facility]IP[facility] PROFILE (CORONARY RISK)2018-07-20 07:27:00 Test Item Value [...] VERY HIGH...... ...>/= 190 mg/dL Comments to Director Of Community Services: ADD TO AM LABSLIPID PROFILE (CORONARY RISK)2018-07-20 [...] MG/DL 0-99 code = LDL) Comments to Director Of Community Services: ADD TO AM LABSPROTHROMBIN [id number] 06:24:00 Test Item Value Reference Range Interpretation [...] karla embolism. 3.0 - 4.5 Comments to Director Of Community Services: NURSE WILL BRING SPECIMEN TO LABPTT ACTIVATED 2018-07-20 06:24:00 Test Item Value Reference Range Interpretation Comments PTT ACTIVATED (test code = APTT) 29.3 SECONDS 22.0-33.0 N Comments to Director Of Community Services: NURSE WILL BRING SPECIMEN TO LABBASIC METABOLIC [...] 9.6 MG/DL 8.4-10.2 N CA) Comments to Director Of Community Services: NURSE WILL BRING SPECIMEN TO LAB Comments to Director Of Community Services: NURSE WILL BRING SPECIMEN TO [id number] 06:13:00 Test Item Value Reference Range Interpretation Comments MAGNESIUM (test code = MAG) 2.2 MG/DL 1.6-2.3 N Comments to Director Of Community Services: NURSE WILL BRING SPECIMEN TO LAB Comments to Director Of Community Services: NURSE WILL BRING SPECIMEN TO LABCBC W/AUTO [id number] 06:02:00 Test Item Value Reference Range Interpretation [...]
[2021-07-12 12:15] LABS: Urine Blood Trace-intact (Negative); Urine Glucose Negative (Negative); Urine Protein Negative (Negative); Urine Specific Gravity 1.015 (1.005-1.030)
[2021-07-12 12:19] LABS: Urine Specific Gravity/Preg 1.015 (1.005-1.030)
[2021-07-12 12:32] LABS: Absolute Lymphocytes (CBC) 1.5 K/uL (0.7-4.9); Hematocrit 32.9 % (36.0-45.0); Lymphocytes % 16.7 % (15.3-44.8); MPV 9.1 fL (7.6-11.3); RBC Red Blood Cell Count 4.44 M/uL (3.86-4.86)
[2021-07-12 12:43] LABS: Urine Bacteria 20-50 /HPF (<20); Urine RBC <5 /HPF (NONE SEEN)
[2021-07-12 12:49] LABS: Albumin 3.7 g/dL (3.4-5.0); Bilirubin Total 0.3 mg/dL (0.2-1.0); Potassium 4.2 mmol/L (3.5-5.1); Protein, Total 7.7 g/dL (6.4-8.2)
--- NOTE | 2021-07-12 13:24 | RAD REPORT ---
EXAM DESCRIPTION: CTAbdomen Pelvis W Contrast - 07/12/2021 1:15 pm CLINICAL HISTORY: Abdominal pain. Abdominal pain, acute, nonlocalized COMPARISON: Abdomen Pelvis W Contrast dated 11/26/2020 TECHNIQUE: Biphasic CT imaging of the abdomen and pelvis was performed with 100 ml non-ionic IV cont rast. All CT scans are performed using dose optimization technique as appropriate and may include automated exposure control or mA/KV adjustment according to patient size. FINDINGS: The lung bases are clear. The liver is mildly fatty. Cholecystectomy. Spleen, pancreas, adrenal glands and kidneys are within n ormal limits. No bowel obstruction, free air, free fluid or abscess. The appendix is normal. No evidence of signi ficant lymphadenopathy. No suspicious bony findings. IMPRESSION: No acute intra-abdominal or pelvic finding.
[2021-07-12] MEDS ORDERED: NA CHLORIDE 0.9% 1,000 ML ONE (14:28)
[2021-07-12] MEDS ORDERED: CEFTRIAXONE 1000 MG/VIAL ONE (14:28)
--- NOTE | 2021-07-12 15:35 | ER ---
Nurse's Notes [facility] Name: Shivani Lagunas Age: 46 yrs Sex: Female : 1975 Arrival Date: 07/12/2021 Time: 11:23 Bed DIS4 Private MD: Diagnosis: UTI/ Urinary tract infection, site not specified Presentation: 07/12 11:34 Chief complaint: Patient states: is having back and abd pain , also has pain with iw urination and fever. Coronavirus screen: At this time, the client does not indicate any symptoms associated with coronavirus-19. Ebola Screen: Patient negative for fever greater than or equal to 101.5 degrees Fahrenheit, and additional compatible Ebola Virus Disease symptoms Patient denies exposure to infectious person. Patient denies travel to an Ebola-affected area in the 21 days before illness onset. No symptoms or risks identified at this time. Initial Sepsis Screen: Does the patient meet any 2 criteria? No. Patient's initial sepsis screen is negative. Does the patient have a suspected source of infection? No. Patient's initial sepsis screen is negative. Risk Assessment: Do you want to hurt yourself or someone else? Patient reports no desire to harm self or others. Onset of symptoms was July 08, 2021. 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 6 in. (167.64 cm); 11:34 Body Mass Index 34.22 (96.16 kg, 167.64 cm) ED Course: 11:23 Patient arrived in ED. mr 11:27 Kiana Guzmán FNP is PHCP. [facility] 11:27 Drew Longo DO is Attending Physician. [facility] 11:36 Triage completed. iw 12:17 Inserted saline lock: 20 gauge in right antecubital area, using aseptic technique. ld1 Blood collected. 13:17 CT Abd/Pelvis - IV Contrast Only In Process Unspecified. EDMS 14:29 Mayelin Archibald, RN is Primary Nurse. iw Administered Medications: 14:29 Drug: NS 0.9% 1000 ml Route: IV; Rate: 1 bolus; Site: right antecubital; iw 15:30 Follow up: IV Status: Completed infusion iw 14:29 Drug: Rocephin (cefTRIAXone) 1 grams Route: IV; Rate: calculated rate; Site: right iw antecubital; 15:00 Follow up: IV Status: Completed infusion iw 14:57 Not Given (Patient Refused): Zofran (Ondansetron) 4 mg IVP once; over 2 minutes iw Outcome: 15:35 Discharge ordered by MD. toribio 16:02 Patient left the ED. iw Signatures: Dispatcher [employer] EDSC Iona Jones mr Mayelin Archibald, AMANDA PATEL iw Nanette Roth RN RN ld1 Kiana Guzmán, MAIL MESSENGER CONTRACTOR MAIL MESSENGER CONTRACTOR [facility]
--- NOTE | 2021-07-12 15:35 | EDPHYS ---
Physician Documentation [facility] Name: Shivani Lagunas Age: 46 yrs Sex: Female : 1975 Arrival Date: 07/12/2021 Time: 11:23 Bed DIS4 Private MD: ED Physician Drew Longo HPI: 07/12 11:40 This 46 yrs old Female presents to ER via Ambulatory with complaints of jh7 Urinary Problem, Abdominal Pain, Back Pain. 11:40 Onset: The symptoms/episode began/occurred 1 week(s) ago. 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:36 LMP 06/16/2021 iw Historical: - Allergies: 11:36 Sulfa (Sulfonamide Antibiotics); iw - PMHx: 11:36 Anxiety; Gout; Hypertension; High Cholesterol; fatty liver; depression, anxiety, iw insomnia; Bipolar disorder; Arrythmia; - PSHx: 11:36 section; Cholecystectomy; iw ROS: 11:40 ENT: Negative for injury, pain, and discharge, Neck: Negative for injury, pain, and jh7 swelling, Cardiovascular: Negative for chest pain, palpitations, and edema, Respiratory: Negative for shortness of breath, cough, wheezing, and pleuritic chest pain, Back: Negative for injury and pain, Skin: Negative for injury, rash, and discoloration, Neuro: Negative for headache, weakness, numbness, tingling, and seizure. 11:40 Abdomen/GI: Positive for abdominal pain, nausea, fever, Negative for diarrhea, constipation. 11:40 : Positive for urinary symptoms, flank pain, Negative for bladder incontinence, vaginal bleeding. 11:40 All other systems are negative. Exam: 11:40 Constitutional: This is a well developed, well nourished patient who is awake, alert, jh7 and in no acute distress. Neck: Trachea midline, no thyromegaly or masses palpated, and no cervical lymphadenopathy. Supple, full range of motion without nuchal rigidity, or vertebral point tenderness. No Meningismus. Cardiovascular: Regular rate and rhythm with a normal S1 and S2. No gallops, murmurs, or rubs. Normal PMI, no JVD. No pulse deficits. Respiratory: Lungs have equal breath sounds bilaterally, clear to auscultation and percussion. No rales, rhonchi or wheezes noted. No increased work of breathing, no retractions or nasal flaring. Abdomen/GI: Soft, non-tender, with normal bowel sounds. No distension or tympany. No guarding or rebound. No evidence of tenderness throughout. Skin: Warm, dry with normal turgor. Normal color with no rashes, no lesions, and no evidence of cellulitis. Neuro: Awake and alert, GCS 15, oriented to person, place, time, and situation. Normal gait. 11:40 : CVA tenderness, on the left. Vital Signs: 11:34 BP 119 / 59; Pulse 69; Resp 16; Temp 98.8; Pulse Ox 97% on R/A; Weight 96.16 kg; Height iw 5 ft. 6 in. (167.64 cm); 11:34 Body Mass Index 34.22 (96.16 kg, 167.64 cm) iw MDM: 13:56 Patient medically screened. [facility] 15:30 Differential diagnosis: UTI. Data reviewed: vital signs, nurses notes, lab test [facility] result(s), radiologic studies. Data interpreted: Pulse oximetry: is 97 %. Interpretation: normal. Counseling: I had a detailed discussion with the patient and/or guardian regarding: the historical points, exam findings, and any diagnostic results supporting the discharge/admit diagnosis, to return to the emergency department if symptoms worsen or persist or if there are any questions or concerns that arise at home. Response to treatment: the patient's symptoms have markedly improved after treatment. ED course: The patient remained stable throughout the ER visit. Her symptoms significantly improved after medication therapy. Explained to the patient that she had a UTI and that although we gave her IV antibiotics here, she would be prescribed antibiotics to take at home as well. Advised to increase p.o. fluid intake. If her symptoms return, worsen, or any new concerning symptoms develop, she may return to the ER for further eval.. 07/12 11:47 Order name: CBC with Diff; Complete Time: 12:46 [facility] 07/12 11:47 Order name: CMP; Complete Time: 13:29 [facility] 07/12 11:47 Order name: Lipase; Complete Time: 13:29 [facility] 07/12 11:47 Order name: Urine Microscopic Only; Complete Time: 12:46 [facility] 07/12 12:15 Order name: Urine --Ancillary (enter results); Complete Time: 12:46 [facility] 07/12 12:15 Order name: Urine Dipstick-Ancillary; Complete Time: 12:46 [facility] 07/12 11:47 Order name: CT Abd/Pelvis - IV Contrast Only; Complete Time: 13:29 [facility] 07/12 11:47 Order name: IV Saline Lock; Complete Time: 12:17 [facility] 07/12 11:47 Order name: Labs collected and sent; Complete Time: 12:17 [facility] 07/12 11:47 Order name: Urine Dipstick-Ancillary (obtain specimen); Complete Time: 12:17 [facility] 07/12 12:46 Order name: Urine Culture [facility] 07/12 11:47 Order name: Urine Test (obtain specimen); Complete Time: 12:17 [facility] Administered Medications: 14:29 Drug: NS 0.9% 1000 ml Route: IV; Rate: 1 bolus; Site: right antecubital; iw 15:30 Follow up: IV Status: Completed infusion iw 14:29 Drug: Rocephin (cefTRIAXone) 1 grams Route: IV; Rate: calculated rate; Site: right iw antecubital; 15:00 Follow up: IV Status: Completed infusion iw 14:57 Not Given (Patient Refused): Zofran (Ondansetron) 4 mg IVP once; over 2 minutes iw Disposition: 22:13 Co-signature as Attending Physician, Drew JACKSON was immediately available on-site ms3 in the Emergency Department for consultation in the care of the patient. . Disposition Summary: 07/12/21 15:35 Discharge Ordered Location: Home [facility] Problem: new [facility] Symptoms: have improved [facility] Condition: Stable [facility] Diagnosis - UTI/ Urinary tract infection, site not specified [facility] Followup: [facility] - With: Private Physician - When: 2 - 3 days - Reason: Recheck today's complaints Discharge Instructions: - Discharge Summary Sheet [facility] - Dysuria [facility] - Urinary Tract Infection, Adult [facility] Forms: - Medication Reconciliation Form [facility] - Thank You Letter [facility] - Antibiotic Education [facility] Prescriptions: - Pyridium 200 mg Oral Tablet - take 1 tablet by ORAL route every 8 hours for 3 days; 9 tablet; Refills: 0, [facility] Product Selection Permitted - Macrobid 100 mg Oral Capsule - take 1 capsule by ORAL route every 12 hours for 7 days; 14 capsule; Refills: 0, jh7 Product Selection Permitted Signatures: Dispatcher [employer] EDMayelin Parks RN RN iw Sims, Marcus, DO ms3 Kiana Gumzán, SHOE STITCHER SHOE STITCHER [facility] Corrections: (The following items were deleted from the chart) 14:33 14:31 : CVA tenderness, on the left, [place] [address] 14:33 14:31 Constitutional: This is a well developed, well nourished patient who is awake, jh7 alert, and in no acute distress. Neck: Trachea midline, no thyromegaly or masses palpated, and no cervical lymphadenopathy. Supple, full range of motion without nuchal rigidity, or vertebral point tenderness. No Meningismus. Cardiovascular: Regular rate and rhythm with a normal S1 and S2. No gallops, murmurs, or rubs. Normal PMI, no JVD. No pulse deficits. Respiratory: Lungs have equal breath sounds bilaterally, clear to auscultation and percussion. No rales, rhonchi or wheezes noted. No increased work of breathing, no retractions or nasal flaring. Abdomen/GI: Soft, non-tender, with normal bowel sounds. No distension or tympany. No guarding or rebound. No evidence of tenderness throughout. Skin: Warm, dry with normal turgor. Normal color with no rashes, no lesions, and no evidence of cellulitis. Neuro: Awake and alert, GCS 15, oriented to person, place, time, and situation. Normal gait. [facility]
[2021-07-12 16:17] VITALS: BP 119/59; TEMP 98.8; O2SAT 97
== END 2021-07-12 16:02 | disposition home or self-care (01) ==
LOC: ER 11:20
DX: N39.0 Urinary tract infection, site not specified (principal); I10 Essential (primary) hypertension; F31.9 Bipolar disorder, unspecified; Z88.2 Allergy status to sulfonamides
CPT/HCPCS: 36415; 74177; 80053; 81003; 81015; 81025; 83690; 85025; 87086; 87088; 96365; 99284; J7030; Q9967

== ENCOUNTER 2021-07-21 08:20 | Emergency (ER) | payer SELFPAY ==
--- OUTSIDE RECORDS SUMMARY | 2021-07-21 08:23 | XMS REPORT | Continuity of Care Document ---
:1975 Author Organization [facility] t Address [address] [place] [address] Care Team Providers Name Role Phone Pcp, Does Not Have A Primary Care Physician Low Aguillon MD Attending Clinician Singer PATEL Attending Clinician Doctor [...] rs active active ity of problems problems [place] [facility] Allergies, Adverse Reactions, Alerts Allergy Allergy Status Severity Reaction(s) Onset Inactive Treating Comm ents Source Name Type Date Date Clinician Sulfa Propensi Active Hives Univers (Sulfona ty to 4-24 ity of mide adverse 00:00: [place] Antibiot reaction 00 Medica l ics) s Branch Social History Social Habit Start Date Stop Date Quantity Comments Source Tobacco use and 2019-08-06 2019-08-06 Never used [facility] exposure 00:00:00 00:00:00 Medical Branch Sex Ass[birth year] At [birth year] [facility] 00:00:00 00:00:00 Medical Branch Smoking Status Start Date Stop Date Source Never smoker [facility] Medical Branch Medications Ordered Filled Start Stop Current Ordering Indication Dosage Frequency Signature Comments Components Source Medication Medication Date Date Medication? Clinician (SIG) Name Name lamoTRIgine 0 Yes [id number] 50mg Take 2 Univers 25 mg 6-08 tablets by ity of tablet 00:00: mouth [place] 00 daily. Medical Branch lamoTRIgine 202- No [id number] Take 1 Univers 25 mg 5-12 06-08 tablet by ity of tablet 00:00: 00:00 mouth [place] 00 :00 daily for Medical 14 days, Branch THEN 2 tablets daily for 14 days. lurasidone Yes [id number] Take half Univers 40 mg 5-11 a tablet ity of tablet 00:00: for 7 days 00 then take Medical 1 tablet Branch daily (can take at nighttime) WITH MEALS lithium 600 2021-0 Yes [id number] 600mg Take 1 Univers mg capsule 5-03 capsule by ity of 00:00: mouth 2 00 (two) Medical times Branch daily. DULoxetine Yes [id number] 60mg Take 1 U nivers 60 mg 4-14 capsule by ity of capsule 00:00: mouth 2 [place] 00 (two) Medical times Branch daily. traZODone 0 Yes [id number] 50mg Take 1 U nivers 50 mg 4-14 tablet by ity of tablet 00:00: mouth at [place] 00 bedtime. Medical May cut Branch tablet in half. vitamin 2021-0 Yes [id number] 1000ug Take 1 U nivers B-12 1,000 4-11 tablet by ity of mcg tablet 00:00: mouth [place] 00 daily. Medical Branch cyanocobala 0 Yes [id number] 1000ug 1 mL by Univers min 1,000 4-11 Intramuscu ity of mcg/mL 00:00: lar route [place] injection 00 weekly. Medical Branch losartan 2021-0 Yes 20mg Take 20 mg Uni vers potassium 4-05 by mouth. ity o f (LOSARTAN 09:24: [place] ORAL) 36 Medical Branch FUROSEMIDE Yes 40mg Take 40 mg U nivers ORAL 4-05 by mouth ity of 09:24: daily. [place] 36 Medical Branch gabapentin Yes [id number] 300mg Take 1 Univers 300 mg 4-05 capsule by ity of capsule 00:00: mouth 3 [place] 00 (three) Medical times Branch daily. rizatriptan Yes [id number] 5mg Take 1 Univers 5 mg 4-05 tablet by ity of disintegrat 00:00: mouth [place] tablet 00 needed for Med ical Migraine Branch (Take 5mg at the beginning of the headache can repeat 2h after if headaches persists). May repeat in 2 hours if needed magnesium Yes [id number] 400mg Take 2 Univers gluconate 4-05 tablets by ity of 200 mg 00:00: mouth 2 [place] tablet 00 (two) Medical times Branch daily. artificial 2021- No [id number] 1[drp] Place 1 Univers tears,hypro 4-05 05-11 Drop in ity of [place], 00:00: 00:00 [place] 0.5 % 00 :00 as needed Medical ophthalmic for Dry Branch drops eyes. clonazePAM Yes [id number] Take no Univers 1 mg tablet 3-31 more than ity of 00:00: 1 mg twice [place] 00 daily as Medical needed for Branch anxiety ondansetron Yes [id number] 4mg Take 1 Univers (ZOFRAN 7-22 tablet by ity of ODT) 4 mg 00:00: mouth [place] disintegrat 00 every 8 Medic al ing tablet (eight) Branch hours as needed for Nausea and Vomiting (N/V). butalbital- 2021- No [id number] 1{tbl} Take 1 Univers acetaminoph 7-22 05-11 tablet by it y of en-caff 00:00: 00:00 mouth [place] 50-325-40 00 :00 every 6 Medical mg tablet (six) Branch hours as needed for Pain (scale 7-10). allopurinoL Yes 100mg Take 100 U nivers 100 mg 6-24 mg by ity of tablet 13:17: mouth [place] 52 daily. Medical Branch atorvastati 2020-0 Yes 10mg Take 10 mg Univers n 10 mg 6-24 by mouth ity of tablet 13:17: at [place] 52 bedtime. Medical Branch propranolol 2019-0 Yes 80mg Take 80 mg Univers 80 mg 6-24 by mouth 2 ity of tablet 13:12: (two) [place] 38 times Medical daily. Branch Vital Signs Vital Name Observation Time Observation Value Comments Source Systolic blood 2021-06-07 15:30:00 131 mm[Hg] [facility] of pressure [facility] Diastolic blood 2021-06-07 15:30:00 61 mm[Hg] [facility] Heart rate 2021-06-07 15:30:00 78 /min [facility] Respiratory rate 2021-06-07 15:30:00 13 /min [facility] Oxygen saturation in 2021-06-07 15:30:00 96 /min [facility] Arterial blood [facility] Pulse oximetry [place] Body temperature 2021-06-07 14:20:30 37.44 Verna [facility] Body height 2021-05-17 14:25:00 167.6 cm [facility] Body weight 2021-05-17 14:25:00 95.029 kg [facility] BMI 2021-05-17 14:25:00 33.81 kg/m2 [facility] Procedures Procedure Date / Time Performing Clinician Source Performed CONSENT/REFUSAL FOR 2021-06-07 13:59:49 [facility] DIAGNOSIS AND TREATMENT [place] [facility] NOTICE OF PRIVACY 2021-06-07 13:59:38 Doctor Kike, [facility] PRACTICES [place] [facility] EMERGENCY SERVICES 2021-06-07 05:01:00 Doctor [facility], [facility] AGREEMENTS AND [place] [facility] AUTHORIZATIONS MISCELLANEOUS SEND OUT 2021-05-17 16:17:00 Zane Martinez [facility] TEST [facility] VITAMIN B1 (THIAMINE), 2021-05-17 15:41:00 Zane Martinez [facility] WHOLE BLOOD [facility] VITAMIN B6, PLASMA 2021-05-17 15:41:00 [facility] 2021-05-17 15:41:00 Zane Martinez [facility] THYROID STIMULATING 2021-05-17 15:41:00 [facility] VITAMIN B12, LEVEL 2021-05-17 15:41:00 JonesMyla Bhtatimayo [facility] ELECTROPHORESIS, SERUM 2021-05-17 15:41:00 [facility] GLYCOS[facility]EMOGLOBIN 2021-05-17 15:41:00 [facility] (A1C) [facility] Encounters Start End Encounter Admission Attending Care Care Encounter Source Date/Time Date/Time Type Type Clinicians Facility Department ID 2021-06-22 2021-06-22 Travel 1.2.840.1 [id number] Univers 00:00:00 00:00:00 54555.1.1 350.1.13.10 ity of 3.104.2.7 4.2.7.3.698 [place] .3.351560 084.8 Medica l .8 Branch 2021-06-08 2021-06-08 Patient Aguillon, 1.2.840.6 [id number] Univers 00:00:00 00:00:00 Secure Msg Marko 34739.1.1 ity of [place] 3.104.2.7 [place] .3.026112 Medica l .8 Branch 2021-06-07 2021-06-07 Emergency Ny, 1.2.840.7 [id number] Univers 09:13:00 10:50:00 Gigi 33431.1.1 ity of 3.104.2.7 [place] .3.639602 Medica l .8 Branch 2021-06-07 2021-06-07 Travel 1.2.840.1 [id number] [id number] Univers 00:00:00 00:00:00 90618.1.1 350.1.13.10 ity of 3.104.2.7 4.2.7.3.698 [place] .3.228850 084.8 Medica l .8 Branch 2021-06-07 2021-06-07 Orders Doctor 1.2.840.2 [id number] Univers 00:00:00 00:00:00 Only Unassigned, 67924.1.1 ity of [place] 3.104.2.7 [place] .3.716806 Medica l .8 Branch 2021-06-03 2021-06-03 Travel 1.2.840.1 1.2.748.037 [id number] Univers 00:00:00 00:00:00 21626.1.1 350.1.13.10 ity of 3.104.2.7 4.2.7.3.698 [place] .3.381337 084.8 Medica l .8 [place] 2021-05-25 2021-05-25 Patient Doctor 1.2.840.5 [id number] Univers 00:00:00 00:00:00 Secure Msg Unassigned, 01275.1.1 ity of [place] 3.104.2.7 [place] .3.043153 Medica l .8 Branch 2021-05-20 2021-05-20 Telephone Jones 1.2.840.6 [id number] Univers 00:00:00 00:00:00 Best, 50043.1.1 ity of [place] 3.104.2.7 [place] .3.855596 Medica l .8 Branch 2021-05-18 2021-05-18 Travel 1.2.840.1 1.2.372.377 [id number] Univers 00:00:00 00:00:00 59689.1.1 350.1.13.10 ity of 3.104.2.7 4.2.7.3.698 [place] .3.498242 084.8 Medica l .8 Branch 2021-05-17 2021-05-17 Crime Lab Analyst Marko Aguillon 1.2.840.1 1 [id number] Univers 13:15:00 13:30:00 Visit Pcp-Lab 29840.1.1 ity of 3.104.2.7 [place] .3.673138 Medica l .8 [place] 2021-05-17 2021-05-17 Office Marko Aguillon 1.2.840.1 [id number] [facility] 09:00:00 10:25:05 Visit Deonte Joel 14242.1.1 ity of 3.104.2.7 [place] .3.618523 Medica l .8 [place] 2021-05-17 2021-05-17 Travel 1.2.840.1 1.2.518.379 [id number] Univers 00:00:00 00:00:00 97021.1.1 350.1.13.10 ity of 3.104.2.7 4.2.7.3.698 [place] .3.952622 084.8 Medica l .8 [place] 2020-09-02 2020-09-02 Emergency [facility], [facility] 1.2.840.114 [id number] 16:12:00 20:21:00 Patti Wallace 350.1.13.10 [place] 4.2.7.2.686 [place] [id number] 2020-09-02 2020-09-02 Orders Doctor MOO 1.2.840.114 [id number] 00:00:00 00:00:00 Only Unassigned, QUITA 350.1.13.10 [place] [facility] 4.2.7.2.686 [id number] Results Test Description Test Time Test Comments Results Result Comments Source VITAMIN B1 (THIAMINE), WHOLE BLOOD 2021-05-22 18:57:21 Test Item Value Reference Range Interpretation Comme nts Vitamin B1, Whole Blood 120 nmol/L 70-180 INTE RPRETIVE INFORMATION: Vitamin B1, (test code = 92693-2) Whole Blood This assay measures the concentration o f thiamine diphosphate (TDP), the prim marco a active form of vitamin B1. Kimi roximately 90 percent of vitamin B1 p resent in whole blood is TDP. Thiamin e and thiamine monophosphate, which comprise the remaining 10 pe rcent, are not measured. This test was developed and its performance characteristics determined by [facility]. It has not been cl eared or approved by the US Food and Drug Administration. This test was p erformed in a CLIA certified labor atory and is intended for clinical pu rposes.Performed By: [facility] [place], [place] [address]Laboratory Director: Irena Diaz MD [facility], [id number] 02:39:55 Test Item Value Reference Range Interpretation Comments VIT B6 (test 22.6 nmol/L 20.0-125.0 INTERPRETIVE IN FORMATION: code = 67338-9) Vitamin B6 ( Pyridoxal 5-Phosphate) Py ridoxal 5'-phosphate me asured in a specimen collec mehreen following an 8- hour or overnight fast accurately indicates vitam in B6 nutritional sta tus. Non-fasting spe cimen concentration r eflects recent vitamin intake. This test was d eveloped and its perform ance characteristics determined by [facility]. It has not been cl eared or approved by the US Food and Drug Admini stration. This test was p erformed in a CLIA certifie d laboratory and is intended for clinical purposes.Perfor med By: [facility] [place], [place] [address]Libsvzt ory Director: Irena Diaz MD [facility]LECT[facility]ORESIS, [id number] 23:11:31 Test Item Value Reference Range Interpretation Comments T PROTEIN (test code = 7.8 g/dL 6.3-8.2 1497879484) ALBUMIN (test code = 3.8 g/dL 3.0-4.8 4118582058) ALPHA 1 (test code = 0.3 g/dL 0.2-0.4 9861637768) ALPHA 2 (test code = 1.0 g/dL 0.6-1.2 0467341843) BETA (test code = 1.5 g/dL 0.7-1.4 H 0683232339) GAMMA (test code = 1.2 g/dL 1.0-1.8 2200388408) Electrophoresis Serum and urine Interpretation (test code protein = 9358621820) electrophoresis:Inc reased beta globulin in serum.No M spike present in serum.No urine submitted for testing. Lab Interpretation (test Abnormal code = 09288-5) [facility]GLOBIN (A1C)2021-05-17 21:47:42 Test Item Value Reference Range Interpretation Comments HGB A1C (test code = 5.1 % 4.0-5.7 4548-4) ZAINAB (test code = ZAINAB) Reference RangesNormal: <5.7%Prediabetes: 5.7 - 6.4%Diabetes: > 6.5% Lab Interpretation (test Normal code = 35584-3) [facility] 21:27:53 Test Item Value Reference Range Interpretation Comments FOLATE SER (test code = 5464530180) 5.6 ng/mL 3.0-20.0 Lab Interpretation (test code = Normal 57260-5) [facility] B12, [id number] 19:45:52 Test Item Value Reference Range Interpretation Comments VIT B12 (test code = 315 pg/mL 240-930 4290281922) ZAINAB (test code = ZAINAB) Biotin has been reported to cause a positive bias, interpret results relative to patient's use of biotin. Lab Interpretation (test Normal code = 82049-6) [facility] STIMULATING [id number] 19:27:03 Test Item Value Reference Range Interpretation Comments TSH (test code = See_Comment Biotin has been 8838741486) reported to cau se a negative bias, interpret resul ts relative to pat ient's use of biotin. [Automated mess age] The system [employer] generated this result transmitted ref erence range: 0.45 - 4 .70 mIU/L. The refe rence range was not u sed to interpret this result as normal/abnor mal. Lab Interpretation (test Normal code = 96994-4) [facility] PROFILE (CORONARY RISK)2018-07-20 07:27:00 Test Item Value [...] VERY HIGH...... ...>/= 190 mg/dL Comments to [employer]: ADD TO AM LABSLIPID PROFILE (CORONARY RISK)2018-07-20 [...] MG/DL 0-99 code = LDL) Comments to [employer]: ADD TO AM LABSPROTHROMBIN [id number] 06:24:00 Test Item Value Reference Range Interpretation [...] karla embolism. 3.0 - 4.5 Comments to [employer]: NURSE WILL BRING SPECIMEN TO LABPTT ACTIVATED 2018-07-20 06:24:00 Test Item Value Reference Range Interpretation Comments PTT ACTIVATED (test code = APTT) 29.3 SECONDS 22.0-33.0 N Comments to [employer]: NURSE WILL BRING SPECIMEN TO LABBASIC METABOLIC [...] 9.6 MG/DL 8.4-10.2 N CA) Comments to [employer]: NURSE WILL BRING SPECIMEN TO LAB Comments to [employer]: NURSE WILL BRING SPECIMEN TO [id number] 06:13:00 Test Item Value Reference Range Interpretation Comments MAGNESIUM (test code = MAG) 2.2 MG/DL 1.6-2.3 N Comments to [employer]: NURSE WILL BRING SPECIMEN TO LAB Comments to [employer]: NURSE WILL BRING SPECIMEN TO LABCBC W/AUTO [id number] 06:02:00 Test Item Value Reference Range Interpretation [...]
[2021-07-21] MEDS ORDERED: METOCLOPRAMIDE 10 MG/2mL INJ ONE (09:05)
[2021-07-21] MEDS ORDERED: NA CHLORIDE 0.9% 100 ML ONE (09:05)
[2021-07-21] MEDS ORDERED: ACETAMINOPHEN 500 MG TAB ONE (09:05)
[2021-07-21 09:43] LABS: Absolute Lymphocytes (CBC) 1.4 K/uL (0.7-4.9); Hematocrit 28.7 % (36.0-45.0); Lymphocytes % 19.5 % (15.3-44.8); MPV 8.9 fL (7.6-11.3); RBC Red Blood Cell Count 3.82 M/uL (3.86-4.86)
--- NOTE | 2021-07-21 09:44 | RAD REPORT ---
EXAM DESCRIPTION: US - Extremity Venous [facility] Ltd - 07/21/2021 9:37 am CLINICAL HISTORY: SWELLING COMPARISON: None. TECHNIQUE: Real-time sonographic evaluation of the left lower extremity deep venous system was perfo rmed. FINDINGS: Normal compressibility, flow augmentation, phasic flow and spontaneous flow are identified in the left lower extremity common femoral, superficial femoral, popliteal and posterior tibial vein s. No intraluminal filling defects seen. IMPRESSION: No DVT in the left lower extremity.
--- NOTE | 2021-07-21 09:56 | RAD REPORT ---
EXAM DESCRIPTION: RAD - Chest Single View - 07/21/2021 9:47 am CLINICAL HISTORY: MALAISE COMPARISON: Portable 03/24/2021 TECHNIQUE: AP portable chest image was obtained 07/21/2021 9:47 am . FINDINGS: Lung volumes are low. No focal consolidation or mass. Interstitial pattern is accentuated by the low lung volumes. No significant interstitial edema or infiltrate suspected. Heart and vascula ture are normal. No measurable pleural effusion and no pneumothorax. No acute bony abnormality seen. No acute aortic findings suspected. IMPRESSION: No acute cardiopulmonary process. No significant change from comparison study.
[2021-07-21 10:02] LABS: ALT/SGPT 23 U/L (12-78); AST/SGOT 12 U/L (15-37); Albumin 3.1 g/dL (3.4-5.0); Alkaline Phosphatase 130 U/L (45-117); BUN Blood Urea Nitrogen 11 mg/dL (7-18); Bicarbonate 23 mmol/L (21-32); Bilirubin Total 0.2 mg/dL (0.2-1.0); Glomerular Filtration Rate 111 ml/min (=/>90); Glucose Level 113 mg/dL (74-106); NT PRO-BNP 39 pg/mL (<125); Potassium 3.7 mmol/L (3.5-5.1); Protein, Total 6.6 g/dL (6.4-8.2); Sodium Level 140 mmol/L (136-145); Troponin High Sensitivity 5.4 pg/mL (<58.9)
[2021-07-21 10:04] LABS: Bilirubin Direct < 0.1 mg/dL (0-0.2)
--- NOTE | 2021-07-21 10:45 | EDPHYS ---
Physician Documentation [facility] [place] Name: Shivani Lagunas Age: 46 yrs Sex: Female : 1975 Arrival Date: 07/21/2021 Time: : Bed 6 Private MD: ED Physician Isaías Murphy HPI: 07/21 09:02 This 46 yrs old Female presents to ER via Ambulatory with complaints of Leg jr11 Swelling, Facial Swelling, Headache. 09:02 The patient complains of pain to the left side of head and right side of head. The jr11 patient describes the headache as aching, intermittent, pounding. Onset: The symptoms/episode began/occurred 2 day(s) ago. Associated signs and symptoms: Pertinent positives: nausea, Pertinent negatives: vomiting, no focal neurologic deficit, denies worse or thunderclap, has history of the same. Severity of symptoms: At its worst the pain was moderate, in the emergency department the pain is unchanged. Headache History: The patient has had previous headaches and this one is similar to previous episodes. The symptoms are alleviated by nothing. the symptoms are aggravated by nothing. Patient also feels diffuse body swelling, face, hands and feels that it is worse in her left leg. Denies history of blood clots.. Historical: - Allergies: 08:36 Sulfa (Sulfonamide Antibiotics); ll1 - PMHx: 08:36 Gout; depression, anxiety, insomnia; High Cholesterol; Hypertension; fatty liver; ll1 Bipolar disorder; Arrythmia; Anxiety; - PSHx: 08:36 section; Cholecystectomy; ll1 - Immunization history:: Client reports receiving the 2nd dose of the Covid vaccine. - Social history:: Smoking status: Patient denies any tobacco usage or history of. ROS: 09:02 All other systems are negative. jr11 Exam: 09:02 Constitutional: This is a well developed, well nourished patient who is awake, alert, jr11 and in no acute distress. Head/Face: Normocephalic, atraumatic. Eyes: Extra-ocular motions intact. Lids and lashes normal. Conjunctiva and sclera are non-icteric and not injected. Cornea within normal limits. Periorbital areas with no swelling, redness, or edema. Chest/axilla: Normal chest wall appearance and motion. Nontender with no deformity. No lesions are appreciated. Cardiovascular: Regular rate and rhythm with a normal S1 and S2. No gallops, murmurs, or rubs. Normal PMI, no JVD. No pulse deficits. Respiratory: Lungs have equal breath sounds bilaterally, clear to auscultation and percussion. No rales, rhonchi or wheezes noted. No increased work of breathing, no retractions or nasal flaring. Abdomen/GI: Soft, non-tender, with normal bowel sounds. No distension or tympany. No guarding or rebound. No evidence of tenderness throughout. Skin: Warm, dry with normal turgor. Normal color with no rashes, no lesions, and no evidence of cellulitis. Neuro: Awake and alert, GCS 15, oriented to person, place, time, and situation. No gross motor or sensory deficits. 09:02 Musculoskeletal/extremity: slightly LLE > RLE edema, non pitting, no obvious edema anywhere else. 09:02 ECG was reviewed by the Attending Physician. EKG interpreted by me shows normal sinus jr11 rhythm, normal axis, normal intervals, no acute ST changes, EKG otherwise normal. Vital Signs: 08:32 BP 151 / 79; Pulse 92; Resp 17; Temp 98.8; Pulse Ox 97% on R/A; Weight 96.16 kg; Height ll1 5 ft. 6 in. (167.64 cm); Pain 8/10; 09:51 BP 133 / 71; Pulse 89; Resp 18; Pulse Ox 100% on R/A; ph 10:00 BP 151 / 95; Pulse 83; Resp 15 S; Pulse Ox 100% on R/A; jg9 10:57 BP 138 / 78; Pulse 75; Resp 18; Temp 97.8; Pulse Ox 99% on R/A; ph 08:32 Body Mass Index 34.22 (96.16 kg, 167.64 cm) ll1 MDM: 08:36 Patient medically screened. jr11 09:02 Differential diagnosis: migraine, non pitting edema, non specific headache. Data jr11 reviewed: vital signs, nurses notes. ED course: We will treat headache with a headache cocktail, no issue with any red flags, denies severe headache denies worst headache.. ED course: Pt with edema, non pitting, will check labs r/o HF, liver failure, kidney failure, maybe 2/2 salt load . 10:44 ED course: Pt feeling better, will f/u PCP, still with mild dysuria, will rx macrobid. 07/21 08:41 Order name: Basic Metabolic Panel; Complete Time: 10:15 07/21 08:41 Order name: CBC with Diff; Complete Time: 09:58 07/21 08:41 Order name: LFT's; Complete Time: 10:15 07/21 08:41 Order name: NT PRO-BNP; Complete Time: 10:15 07/21 08:41 Order name: Troponin HS; Complete Time: 10:15 07/21 08:41 Order name: XRAY Chest (1 view); Complete Time: 09:58 07/21 08:41 Order name: EKG; Complete Time: 08:42 07/21 08:41 Order name: Cardiac monitoring; Complete Time: 08:59 07/21 08:41 Order name: EKG - Nurse/Tech; Complete Time: 08:59 07/21 08:41 Order name: IV Saline Lock; Complete Time: 09:39 07/21 08:41 Order name: US Extremity Venous Unilateral Ltd; Complete Time: 09:58 07/21 08:41 Order name: Labs collected and sent; Complete Time: 09:39 07/21 08:41 Order name: O2 Per Protocol; Complete Time: 08:42 07/21 08:41 Order name: O2 Sat Monitoring; Complete Time: 08:42 Administered Medications: 09:48 Drug: Reglan (metoCLOPramide) 10 mg Route: IVP; Site: left antecubital; ph 10:56 Follow up: Response: No adverse reaction ph 09:48 Drug: Tylenol 1000 mg Route: PO; ph 10:56 Follow up: Response: No adverse reaction; Pain is decreased ph Disposition Summary: 07/21/21 10:45 Discharge Ordered Location: Home jr11 Condition: Stable jr11 Diagnosis - Edema, unspecified jr11 - Headache jr11 Discharge Instructions: - Discharge Summary Sheet jr11 - Edema jr11 - General Headache Without Cause jr11 Forms: - Medication Reconciliation Form jr11 - Thank You Letter jr11 - Antibiotic Education jr11 - Prescription Opioid Use jr11 Signatures: Dispatcher [employer] Consuelo Tobar RN RN Demi Kearney RN RN ll1 Isaías Murphy MD MD jr11
--- NOTE | 2021-07-21 10:45 | ER ---
Nurse's Notes [facility] Name: Shivani Lagunas Age: 46 yrs Sex: Female : 1975 Arrival Date: 07/21/2021 Time: 08:22 Bed 6 Private MD: Diagnosis: Edema, unspecified;Headache Presentation: 07/21 08:32 Chief complaint: Patient states: L leg pain for 2 days. Bilateral leg swelling, worse ll1 on L . Feels like her face is swollen, sore throat, eye discharge today. No known fever. Coronavirus screen: Vaccine status: Patient reports receiving the 2nd dose of the covid vaccine. Client denies travel out of the [place] in the last 14 days. At this time, the client does not indicate any symptoms associated with coronavirus-19. Ebola Screen: Patient denies travel to an Ebola-affected area in the 21 days before illness onset. Initial Sepsis Screen: Does the patient meet any 2 criteria? HR > 90 bpm. No. Patient's initial sepsis screen is negative. Does the patient have a suspected source of infection? No. Patient's initial sepsis screen is negative. Risk Assessment: Do you want to hurt yourself or someone else? Patient reports no desire to harm self or others. Onset of symptoms was July 19, 2021. 08:32 Method Of Arrival: Ambulatory ll1 08:32 Acuity: ALICIA 3 ll1 Triage Assessment: 08:37 General: Appears uncomfortable, Behavior is cooperative, appropriate for age. Pain: ll1 Complains of pain in right leg and left leg Pain began 2-3 days ago. EENT: Reports pain when swallowing. Neuro: Reports headache. Musculoskeletal: Reports Bilateral leg swelling, worse L side. Historical: - Allergies: 08:36 Sulfa (Sulfonamide Antibiotics); ll1 - PMHx: 08:36 Gout; depression, anxiety, insomnia; High Cholesterol; Hypertension; fatty liver; ll1 Bipolar disorder; Arrythmia; Anxiety; - PSHx: 08:36 section; Cholecystectomy; ll1 - Immunization history:: Client reports receiving the 2nd dose of the Covid vaccine. - Social history:: Smoking status: Patient denies any tobacco usage or history of. Screenin:42 Abuse screen: Denies threats or abuse. Denies injuries from another. Nutritional ph screening: No deficits noted. Tuberculosis screening: No symptoms or risk factors identified. Fall Risk None identified. Assessment: 09:02 Reassessment: US at bedside. ph 09:49 General: Appears in no apparent distress. well groomed, Behavior is calm, cooperative, ph appropriate for age. Pain: Complains of pain in right side of head and left side of head, bilateral ankles. Neuro: Level of Consciousness is awake, alert, obeys commands, Oriented to person, place, time, situation. Cardiovascular: Capillary refill < 3 seconds Patient's skin is warm and dry. Edema is 1+ to left foot and right foot. Respiratory: Reports shortness of breath Airway is patent Respiratory effort is even, unlabored, Respiratory pattern is regular, symmetrical. GI: No signs and/or symptoms were reported involving the gastrointestinal system. Derm: Skin is intact, is healthy with good turgor, Skin is pink, warm \T\ dry. Musculoskeletal: Circulation, motion, and sensation intact. Range of motion: intact in all extremities. 10:58 Reassessment: Patient appears in no apparent distress at this time. Patient and/or ph family updated on plan of care and expected duration. Pain level reassessed. Patient is alert, oriented x 3, equal unlabored respirations, skin warm/dry/pink. Pt reports itching and burning to bilateral eyes, no redness or drainage noted, suggested to pt that it could be seasonal allergy symptoms, instructed to follow up w/ PCP in 2 days. Vital Signs: 08:32 BP 151 / 79; Pulse 92; Resp 17; Temp 98.8; Pulse Ox 97% on R/A; Weight 96.16 kg; Height ll1 5 ft. 6 in. (167.64 cm); Pain 8/10; 09:51 BP 133 / 71; Pulse 89; Resp 18; Pulse Ox 100% on R/A; ph 10:00 BP 151 / 95; Pulse 83; Resp 15 S; Pulse Ox 100% on R/A; jg9 10:57 BP 138 / 78; Pulse 75; Resp 18; Temp 97.8; Pulse Ox 99% on R/A; ph 08:32 Body Mass Index 34.22 (96.16 kg, 167.64 cm) ll1 ED Course: 08:22 Patient arrived in ED. rg4 08:26 Isaías Murphy MD is Attending Physician. jr11 08:32 Arm band placed on Patient placed in an exam room, on a stretcher. ll1 08:36 Triage completed. ll1 08:41 Consuelo Chang RN is Primary Nurse. ph 08:42 Patient has correct armband on for positive identification. Bed in low position. Call light in reach. Side rails up X 1. Client placed on continuous cardiac and pulse oximetry monitoring. NIBP monitoring applied. 09:00 Patient has correct armband on for positive identification. Placed in gown. Call light 5 in reach. Warm blanket given. material damage adjuster on. Pulse ox on. NIBP on. 09:01 EKG done, by ED staff, reviewed by Isaías Murphy MD. 5 09:22 Missed attempt(s): 22 gauge in right antecubital area. mh5 09:34 Initial lab(s) drawn, by oh, sent to lab. Inserted saline lock: 20 gauge in left dh3 antecubital area, using aseptic technique. Blood collected. 09:39 US Extremity Venous Unilateral Ltd In Process Unspecified. EDMS 09:42 XRAY Chest (1 view) In Process Unspecified. EDMS 10:57 No provider procedures requiring assistance completed. IV discontinued, intact, ph bleeding controlled, No redness/swelling at site. Pressure dressing applied. Administered Medications: 09:48 Drug: Reglan (metoCLOPramide) 10 mg Route: IVP; Site: left antecubital; ph 10:56 Follow up: Response: No adverse reaction ph 09:48 Drug: Tylenol 1000 mg Route: PO; ph 10:56 Follow up: Response: No adverse reaction; Pain is decreased ph Medication: 08:43 VIS not applicable for this client. ph Outcome: 10:45 Discharge ordered by jrSuresh 10:57 Discharged to home ambulatory. ph 10:57 Condition: good 10:57 Discharge instructions given to patient, Instructed on discharge instructions, follow up and referral plans. Demonstrated understanding of instructions, follow-up care. 10:59 Patient left the ED. ph Signatures: Dispatcher [employer] EDAK Consuelo Chang RN RN ph Lalita Salas4 Mercedez Godoy [facility] Chey Muñoz [facility] Demi Kearney RN RN ll1 Kiana Sage RN RN jg9 Isaías Murphy MD MD jr11 Corrections: (The following items were deleted from the chart) 08:37 08:32 Coronavirus screen: Client denies travel out of the [place] in the last 14 days. At 1 this time, the client does not indicate any symptoms associated with coronavirus-19. ll1
[2021-07-21 11:09] VITALS: BP 138/78; TEMP 97.8; O2SAT 99
--- NOTE | 2021-07-22 11:00 | EKG ---
Test Date: 2021-07-21 Test Time: 08:48:22 [employer]: RAFAT MEASUREMENT RESULTS: Intervals: Rate: 82 IN: 154 QRSD: 92 QT: 408 QTc: 476 [place]: P: 49 IN: 154 QRS: 23 T: 27 INTERPRETIVE STATEMENTS: Normal sinus rhythm Nonspecific ST and T wave abnormality Abnormal ECG Compared to ECG 03/24/2021 02:02:18 ST (T wave) deviation now present Sinus arrhythmia no longer present Left ventricular hypertrophy no longer present Electronically Signed On 07-22-21 10:58:35 CDT by Lonnie Laurent
== END 2021-07-21 10:59 | disposition home or self-care (01) ==
LOC: ER 08:20
DX: R60.9 Edema, unspecified (principal); R51.9 Headache, unspecified; I10 Essential (primary) hypertension; Z88.2 Allergy status to sulfonamides
CPT/HCPCS: 36415; 71045; 80048; 80076; 83880; 84484; 85025; 93005; 93971; 96374; 99284; J2765

== ENCOUNTER 2021-10-10 09:53 | Emergency (ER) | payer SELFPAY ==
--- OUTSIDE RECORDS SUMMARY | 2021-10-10 09:56 | XMS REPORT | Continuity of Care Document ---
:1975 Author Organization [facility] t Address [address] [place] [address] Care Team Providers Name Role Phone Pcp, Patient Does Not Have A Primary Care Physician +[id number] Patti Hutton Attending Clinician Doctor Unassigned, [place] Attending Clinician Unavailable Payers Payer Name Policy Type Policy Number Effective Date Expiration Date S ource Problems Condition Condition Condition Status Onset Resolution Last Treating Co mments Source Name Details Category Date Date Treatment Clinician Date No known No known Disease Unive rs active active ity of problems problems [facility] Allergies, Adverse Reactions, Alerts Allergy Allergy Status Severity Reaction(s) Onset Inactive Treating Comm ents Source Name Type Date Date Clinician Sulfa Propensi Active Hives 0 Univers (Sulfona ty to 4-24 ity of mide adverse 00:00: [place] Antibiot reaction 00 Medica l ics) s Branch Social History Social Habit Start Date Stop Date Quantity Comments Source Tobacco use and 2021-08-24 2021-08-24 Smokeless tobacco Un iversity of exposure 00:00:00 00:00:00 non-user [facility] Sex Assigned At [birth year] Universit y of 00:00:00 00:00:00 [facility] Smoking Status Start Date Stop Date Source Never smoked tobacco [facility] Medications Ordered Filled Start Stop Current Ordering Indication Dosage Frequency Signature Comments Components Source Medication Medication Date Date Medication? Clinician (SIG) Name Name lamoTRIgine Yes [id number] 50mg Take 2 Univers 25 mg 8-26 tablets by ity of tablet 00:00: mouth in [place] 00 the Medical morning [place] and 2 tablets in the evening. clonazePAM 2021-0 Yes [id number] Take no Univers 1 mg tablet 8-25 more than ity of 00:00: 1 mg twice [place] 00 daily as Medical needed for Branch anxiety lithium 600 2021-0 Yes [id number] 600mg Take 1 Univers mg capsule 8-25 capsule by ity of 00:00: mouth in [place] [id number] the [facility] morning Mcdonald and 1 capsule in the evening. Lamotrigine 2021-2021- No [id number] 50mg Take 1 Univers 50 mg 8-25 08-26 tablet by ity of tablet 00:00: 00:00 mouth in [place] 00 :00 the [facility] morning Mcdonald and 1 tablet in the evening. Lamotrigine 2021-0 2021- No [id number] 50mg Take 1 Univers 50 mg 8-11 08-25 tablet by ity of tablet 00:00: 00:00 mouth in [place] 00 :00 the [facility] morning Branch and 1 tablet in the evening. DULoxetine 0 Yes [id number] 60mg Take 1 U nivers 60 mg 7-27 capsule by ity of capsule 00:00: mouth in [place] 00 the [facility] morning Mcdonald and 1 capsule in the evening. Lamotrigine 2021-0 2021- No [id number] 50mg Take 1 Univers 50 mg 7-18 08-11 tablet by ity of tablet 00:00: 00:00 mouth in [place] 00 :00 the [facility] morning Mcdonald and 1 tablet in the evening. lithium 600 2021-0 2021- No [id number] 600mg Take 1 Univers mg capsule 7-13 08-25 capsule by it y of 00:00: 00:00 mouth in [place] 00 :00 the [facility] morning Mcdonald and 1 capsule in the evening. traZODone 2021-0 Yes [id number] 50mg Take 1 U nivers 50 mg 6-28 tablet by ity of tablet 00:00: mouth at [place] 00 bedtime. Medical May cut Branch tablet in half. DULoxetine 0 Yes [id number] 60mg Take 1 U nivers 60 mg 6-28 capsule by ity of capsule 00:00: mouth 2 [place] 00 (two) Medical times Branch daily. clonazePAM 0 202- No [id number] Take no Univers 1 mg tablet 6-28 08-25 more than it y of 00:00: 00:00 1 mg twice [place] 00 :00 daily as Medical needed for Branch anxiety vitamin 0 Yes [id number] 1000ug Take 1 U nivers B-12 1,000 4-11 tablet by ity of mcg tablet 00:00: mouth [place] 00 daily. Medical Branch cyanocobala 0 Yes [id number] 1000ug 1 mL by Univers min 1,000 4-11 Intramuscu ity of mcg/mL 00:00: lar route [place] injection 00 weekly. Medical Branch losartan Yes 20mg Take 20 mg Uni vers potassium 4-05 by mouth. ity o f (LOSARTAN 09:24: [place] ORAL) 36 Medical Branch FUROSEMIDE 0 Yes 40mg Take 40 mg U nivers ORAL 4-05 by mouth ity of 09:24: daily. [place] 36 Medical Branch gabapentin 0 Yes [id number] 300mg Take 1 Univers 300 mg 4-05 capsule by ity of capsule 00:00: mouth 3 [place] 00 (three) Medical times Branch daily. rizatriptan Yes [id number] 5mg Take 1 Univers 5 mg 4-05 tablet by ity of disintegrat 00:00: mouth [place] ing tablet 00 needed for Med ical Migraine Branch (Take 5mg at the beginning of the headache can repeat 2h after if headaches persists). May repeat in 2 hours if needed magnesium 0 Yes [id number] 400mg Take 2 Univers gluconate 4-05 tablets by ity of 200 mg 00:00: mouth 2 [place] tablet 00 (two) Medical times Branch daily. ondansetron 0 Yes [id number] 4mg Take 1 Univers (ZOFRAN 7-22 tablet by ity of ODT) 4 mg 00:00: mouth [place] disintegrat 00 every 8 Medic al ing tablet (eight) Branch hours as needed for Nausea and Vomiting (N/V). allopurinoL 2020-0 Yes 100mg Take 100 U nivers 100 mg 6-24 mg by ity of tablet 13:17: mouth [place] 52 daily. Medical Branch atorvastati 2019-0 Yes 10mg Take 10 mg Univers n 10 mg 6-24 by mouth ity of tablet 13:17: at [place] 52 bedtime. Medical Branch propranolol 2019-0 Yes 80mg Take 80 mg Univers 80 mg 6-24 by mouth 2 ity of tablet 13:12: (two) [place] 38 times Medical daily. Branch Vital Signs Vital Name Observation Time Observation Value Comments Source Systolic blood 2021-08-24 14:24:00 133 mm[Hg] [facility] Diastolic blood 2021-08-24 14:24:00 73 mm[Hg] [facility] rate 2021-08-24 14:24:00 69 /min [facility] Respiratory rate 2021-08-24 14:24:00 18 /min [facility] Body height 2021-08-24 14:24:00 167.6 cm [facility] Body weight 2021-08-24 14:24:00 100.245 kg [facility] BMI 2021-08-24 14:24:00 35.67 kg/m2 [facility] Oxygen saturation in 2021-06-07 15:30:00 96 /min [facility] Arterial blood by [facility] Pulse oximetry [place] Body temperature 2021-06-07 14:20:30 37.44 Verna [facility] Procedures This patient has no known procedures. Encounters Start End Encounter Admission Attending Care Care Encounter Source Date/Time Date/Time Type Type Clinicians Facility Department ID 2021-08-24 2021-08-24 Travel [id number] 00:00:00 00:00:00 [id number] ity of 3.104.2.7 4.2.7.3.698 [place] .[id number] 084.8 Medica l .8 Branch 2020-09-02 2020-09-02 Emergency Rose, [facility] [id number] 16:12:00 20:21:00 Patti Wallace [id number] [place] 4.2.7.2.686 [place] [id number] 2020-09-02 2020-09-02 Orders Doctor MOO [id number] 00:00:00 00:00:00 Only Unassigned, QUITA 350.1.13.10 [place] [facility] 4.2.7.2.686 [id number] Results Test Description Test Time Test [...] code = LDL) 144 MG/DL 0-99 H OPTIMAL.........<100 mg/dLNEAR OPTIMAL/ABOVE OPTIMAL........ .100-129 mg/dL BORDERLINE HIGH .........130-159 mg/dL HIGH..... ....160-189 mg/dL VERY HIGH...... ...>/= 190 mg/dL Comments to [employer] Product Manager: ADD TO AM LABSLIPID PROFILE (CORONARY [...] MG/DL 0-99 code = LDL) Comments to [employer] Product Manager: ADD TO AM LABSPROTHROMBIN [id number] 06:24:00 Test Item Value Reference Range Interpretation Comments PROTHROMBIN TIME 9.9 SECONDS 9.6-11.6 N PATIENT (test code = PTP) INTERNATIONAL NORMAL 0.9 0.8-1.1 N The INR is to be RATIO (test code = INR) used only for monitoring oral anticoagulantth erap y. INDICATION I NR VALUE ---- ---- ---- -------1. Prophylaxis, de ep venous thrombos is, including high risk surgery. 2.0 - 3.0 2. Prophylaxis, deep venous thrombosis, hip surgery, treatm ent for deep venous thrombosis or pulmonary prevention of systemic emboli sm in patients wit h valvular heart disease, atrial fibrillation, tissue heart va lve, or acute myocar dial infarction. 2. 0 - 3.0 3. Manager Of Application Development al prosthesis hear t valves, recurre nt systemic emboli sm. 3.0 - 4.5 Comments to [employer] Product Manager: NURSE WILL BRING SPECIMEN TO LABPTT ACTIVATED 2018-07-20 06:24:00 Test Item Value Reference Range Interpretation Comments PTT ACTIVATED (test code = APTT) 29.3 SECONDS 22.0-33.0 N Comments to [employer] Product Manager: NURSE WILL BRING SPECIMEN TO LABBASIC [...] 9.6 MG/DL 8.4-10.2 N CA) Comments to [employer] Product Manager: NURSE WILL BRING SPECIMEN TO LAB Comments to [employer] Product Manager: NURSE WILL BRING SPECIMEN TO [id number] 06:13:00 Test Item Value Reference Range Interpretation Comments MAGNESIUM (test code = MAG) 2.2 MG/DL 1.6-2.3 N Comments to [employer] Product Manager: NURSE WILL BRING SPECIMEN TO LAB Comments to [employer] Product Manager: NURSE WILL BRING SPECIMEN TO LABCBC W/AUTO [id number] 06:02:00 Test Item Value Reference Range Interpretation [...]
[2021-10-10 10:38] LABS: Urine Blood Trace-lysed (Negative); Urine Glucose Negative (Negative); Urine Protein Negative (Negative); Urine Specific Gravity 1.015 (1.005-1.030)
[2021-10-10] MEDS ORDERED: KETOROLAC 30 MG/ML INJ ONE (10:38)
[2021-10-10] MEDS ORDERED: ONDANSETRON 4 MG/2 ML VIAL ONE (10:38)
[2021-10-10] MEDS ORDERED: NA CHLORIDE 0.9% 1,000 ML ONE (10:38)
[2021-10-10 10:57] LABS: Urine Bacteria <20 /HPF (<20); Urine RBC <5 /HPF (None Seen)
[2021-10-10 11:21] LABS: Absolute Lymphocytes (CBC) 1.4 K/uL (0.7-4.9); Hematocrit 29.7 % (36.0-45.0); Lymphocytes % 18.5 % (15.3-44.8); MCV 71.4 fL (80-100); RBC Red Blood Cell Count 4.15 M/uL (3.86-4.86)
[2021-10-10 11:36] LABS: Albumin 3.4 g/dL (3.4-5.0); Bilirubin Total 0.3 mg/dL (0.2-1.0); Potassium 3.9 mmol/L (3.5-5.1); Protein, Total 6.9 g/dL (6.4-8.2)
--- NOTE | 2021-10-10 12:23 | RAD REPORT ---
EXAM DESCRIPTION: CTAbdomen Pelvis W Contrast - 10/10/2021 12:07 pm CLINICAL HISTORY: RLQ abdominal pain COMPARISON: Abdomen Pelvis W Contrast dated 07/12/2021; Abdomen Pelvis W Contrast dated ; [place] Protocol dated 05/17/2019 TECHNIQUE: CT of the abdomen and pelvis was performed. All CT scans are performed using dose optimization technique as appropriate and may include automated exposure control or mA/KV adjustment according to patient size. FINDINGS: Lower chest: No acute abnormality. Liver: Hepatic steatosis. Biliary: Cholecystectomy Stomach: No significant focal abnormality. Duodenum: No significant focal abnormality. Pancreas: No significant abnormality. Spleen: No significant abnormality. Adrenal: No suspicious lesions. Kidney/ureter: No hydronephrosis. No renal calculi. Retroperitoneum: No retroperitoneal adenopathy. Vascular: No aneurysm. Bowel: Moderate stool in the colon.. No appendicitis identified. Peritoneum: No ascites or free air. Bladder: Grossly unremarkable. Reproductive: No adnexal masses. Bones: No acute fracture. Other: n/a IMPRESSION: No acute intra-abdominal or pelvic finding. Normal appendix.
[2021-10-10 12:56] LABS: Urine Specific Gravity/Preg 1.015 (1.005-1.030)
--- NOTE | 2021-10-10 13:21 | ER ---
Nurse's Notes [facility] Name: Shivani Lagunas Age: 46 yrs Sex: Female : 1975 Arrival Date: 10/10/2021 Time: 09:53 Bed 13 Private MD: Diagnosis: Lower abdominal pain, unspecified;Anemia, unspecified Presentation: 10/10 10:00 Chief complaint: Patient states: I was recently being treated for a UTI about 2.5 weeks jg9 after treatment was completed my children reported to me that my urine was smelling bad so I started paying attention and I also noticed that my urine was smelling like rotten eggs, and it just continued to get worse and the bilateral flank pain has not moved into the RLQ area 09/21. Coronavirus screen: Vaccine status: Patient reports receiving the 2nd dose of the covid vaccine. Ebola Screen: Patient negative for fever greater than or equal to 101.5 degrees Fahrenheit, and additional compatible Ebola Virus Disease symptoms Patient denies exposure to infectious person. Patient denies travel to an Ebola-affected area in the 21 days before illness onset. Initial Sepsis Screen: Does the patient meet any 2 criteria? Yes Does the patient have a suspected source of infection? Yes: Dysuria/Frequency/Urgency/UTI. Risk Assessment: Do you want to hurt yourself or someone else? Patient reports no desire to harm self or others. Onset of symptoms is unknown. 10:00 Method Of Arrival: Ambulatory j9 10:00 Acuity: ALICIA 3 jg9 Triage Assessment: 10:00 General: Appears uncomfortable, Behavior is calm, cooperative, Smells of. Pain: jg9 Complains of pain in posterior aspect of right lateral abdomen, posterior aspect of left lateral abdomen and right lower quadrant Pain currently is 8 out of 10 on a pain scale. EENT: No deficits noted. Neuro: No deficits noted. Cardiovascular: No deficits noted. Respiratory: No deficits noted. GI: Reports lower abdominal pain. : Reports odorous urine. Derm: No deficits noted. Musculoskeletal: Reports body aches. 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 - Social history:: Smoking status: Patient reports the use of cigarette tobacco products, denies chronic smoking, but will smoke occasionally. Screenin:11 Abuse screen: Denies threats or abuse. Denies injuries from another. Nutritional jg9 screening: No deficits noted. Tuberculosis screening: No symptoms or risk factors identified. Fall Risk None identified. Assessment: 10:00 GI: Bowel sounds present X 4 quads. Abd is soft and non tender in right upper quadrant, jg9 left upper quadrant and left lower quadrant Abdomen is tender to palpation in right lower quadrant. 11:00 Reassessment: Patient and/or family updated on plan of care and expected duration. Pain jg9 level reassessed. Patient is alert, oriented x 3, equal unlabored respirations, skin warm/dry/pink. Patient states feeling better. Patient states symptoms have improved. 12:00 Reassessment: Patient and/or family updated on plan of care and expected duration. Pain jg9 level reassessed. Patient is alert, oriented x 3, equal unlabored respirations, skin warm/dry/pink. 13:00 Reassessment: Patient and/or family updated on plan of care and expected duration. Pain jg9 level reassessed. Patient is alert, oriented x 3, equal unlabored respirations, skin warm/dry/pink. Vital Signs: 10:00 BP 126 / 51; Pulse 67 LA; Resp 17 S; Temp 98.0; Pulse Ox 100% on R/A; Weight 97.52 kg jg9 (R); Height 5 ft. 6 in. (167.64 cm) (R); Pain 8/10; 11:00 BP 115 / 66; Pulse 60; Resp 16 S; Pulse Ox 99% on R/A; Pain 4/10; jg9 13:00 BP 115 / 60; Pulse 64; Resp 15 S; Pulse Ox 100% ; Pain 3/10; jg9 10:00 Body Mass Index 34.70 (97.52 kg, 167.64 cm) jg9 ED Course: 09:53 Patient arrived in ED. am2 09:54 Bal Sagastume PA is PHCP. cp 09:55 Jean Carlos Andrews MD is Attending Physician. cp 09:59 Kiana Sage, AMANDA is Primary Nurse. jg9 10:00 Arm band placed on. jg9 10:08 Triage completed. jg9 10:11 Patient has correct armband on for positive identification. Bed in low position. Call jg9 light in reach. Side rails up X 1. 10:39 Urine Microscopic Only Sent. [email or web address] 11:00 Initial lab(s) drawn, by nj, sent to lab. Inserted saline lock: 22 gauge in left aa5 antecubital area, using aseptic technique. Blood collected. 12:09 CT Abd/Pelvis - IV Contrast Only In Process Unspecified. EDMS 13:16 No apparent distress. Resting quietly. Awaiting lab results, Awaiting radiology jg9 results. Awaiting disposition. 13:40 No provider procedures requiring assistance completed. jg9 13:41 IV discontinued. jg9 Administered Medications: 11:13 Drug: NS 0.9% 1000 ml Route: IV; Rate: 1 bolus; Site: left antecubital; jg9 13:30 Follow up: IV Status: Completed infusion; IV Intake: 1000ml jg9 11:13 Drug: Zofran (Ondansetron) 4 mg Route: IVP; Site: left antecubital; jg9 12:34 Follow up: Response: No adverse reaction; Nausea is decreased jg9 11:14 Drug: Ketorolac 15 mg {Note: 7/10 RLQ bilateral flanl pain , RASS-0.} Route: IVP; Site: 9 left antecubital; 12:00 Follow up: Response: No adverse reaction; Pain is decreased jg9 Medication: 13:41 VIS not applicable for this client. jg9 Intake: 13:30 IV: 1000ml; Total: 1000ml. jg9 Outcome: 13:21 Discharge ordered by . cp 13:41 Discharged to home ambulatory. jg9 13:41 Condition: improved jg9 13:41 Discharge instructions given to patient, Instructed on discharge instructions, follow up and referral plans. Demonstrated understanding of instructions, follow-up care, Prescriptions given X 3. 13:42 Patient left the ED. jg9 Signatures: Dispatcher [employer] [facility] Soha Salinas, RN RN aa5 Bal Sagastume PA PA cp Moreno, Amanda am2 Kiana Sage RN RN jg9 Flaquita Lui kc6
--- NOTE | 2021-10-10 13:21 | EDPHYS ---
Physician Documentation [facility] Name: Shivani Lagunas Age: 46 yrs Sex: Female : 1975 Arrival Date: 10/10/2021 Time: 09:53 Bed 13 Private MD: ED Physician Jean Carlos Andrews HPI: 10/10 10:20 This 46 yrs old Female presents to ER via Ambulatory with complaints of cp Abdominal Pain - rlq, Flank Pain. 10:20 The patient presents with abdominal pain right lower quadrant. cp 10:30 Onset: The symptoms/episode began/occurred gradually. cp 10:30 The symptoms do not radiate. Associated signs and symptoms: Pertinent positives: mid cp back pain, Pertinent negatives: blood in stools, chest pain, constipation, diarrhea, fever, shortness of breath, vaginal discharge. 10:30 The symptoms are described as constant. Modifying factors: the symptoms are aggravated cp by movement, pressure. Severity of pain: in the emergency department the pain is a 8 / 10. 10:30 Patient reports being recently treated for UTI and symptoms feel similar. Started cp drinking cranberry juice but urine has odor, dark colored and having frequency. 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 - Social history:: Smoking status: Patient reports the use of cigarette tobacco products, denies chronic smoking, but will smoke occasionally. ROS: 10:25 Constitutional: Negative for body aches, chills, fever, poor PO intake. cp 10:25 Eyes: Negative for injury, pain, redness, and discharge. cp 10:25 Abdomen/GI: Positive for abdominal pain, of the right lower quadrant, Negative for vomiting, diarrhea, constipation. 10:25 : Positive for urinary frequency, foul smelling urine, dark colored urine, Negative cp for vaginal bleeding, vaginal discharge. 10:25 Respiratory: Negative for cough, shortness of breath, wheezing. cp 10:25 Back: Negative for pain at rest, pain with movement. 10:25 Skin: Negative for cellulitis, rash. cp 10:25 Neuro: Negative for altered mental status, dizziness, headache, weakness. cp 10:25 All other systems are negative. Exam: 10:30 Constitutional: The patient appears in no acute distress, alert, awake, non-toxic, well cp developed, well nourished, overweight 10:30 Head/Face: Normocephalic, atraumatic. cp 10:30 Eyes: Periorbital structures: appear normal, Conjunctiva: normal, no exudate, no injection, Sclera: no appreciated abnormality, Lids and lashes: appear normal, bilaterally. 10:30 ENT: External ear(s): are unremarkable, Nose: is normal, Mouth: Lips: moist, Oral mucosa: pink and intact, moist, Posterior pharynx: Airway: no evidence of obstruction, patent. 10:30 Chest/axilla: Inspection: normal. 10:30 Cardiovascular: Rate: normal, Rhythm: regular. 10:30 Respiratory: the patient does not display signs of respiratory distress, Respirations: cp labored breathing, is not present, accessory muscle usage, is absent, intercostal retractions, are absent, Breath sounds: are clear throughout, no decreased breath sounds, no stridor, no wheezing. 10:30 Abdomen/GI: Inspection: abdomen appears normal, Bowel sounds: active, all quadrants, Palpation: soft, in all quadrants, moderate abdominal tenderness, in the right lower quadrant, rebound tenderness, is not appreciated, voluntary guarding, is elicited in the right lower quadrant. 10:30 Back: pain, that is mild, of the left mid back, ROM is normal, vertebral tenderness, is not appreciated, Straight leg raises: of both lower extremities does not illicit pain. 10:30 Skin: no rash present. 10:30 Neuro: Orientation: to person, place \T\ time. Mentation: is normal, Motor: moves all fours, strength is normal, Sensation: is normal. Vital Signs: 10:00 BP 126 / 51; Pulse 67 LA; Resp 17 S; Temp 98.0; Pulse Ox 100% on R/A; Weight 97.52 kg jg9 (R); Height 5 ft. 6 in. (167.64 cm) (R); Pain 8/10; 11:00 BP 115 / 66; Pulse 60; Resp 16 S; Pulse Ox 99% on R/A; Pain 4/10; jg9 13:00 BP 115 / 60; Pulse 64; Resp 15 S; Pulse Ox 100% ; Pain 3/10; jg9 10:00 Body Mass Index 34.70 (97.52 kg, 167.64 cm) jg9 MDM: 09:59 Patient medically screened. cp 13:20 Data reviewed: vital signs, nurses notes, lab test result(s), radiologic studies, CT cp scan. 13:20 Differential diagnosis: appendicitis, diverticulitis, Pyelonephritis, Ureterolithiasis, cp urinary tract infection. Counseling: I had a detailed discussion with the patient and/or guardian regarding: the historical points, exam findings, and any diagnostic results supporting the discharge/admit diagnosis, lab results, radiology results, to return to the emergency department if symptoms worsen or persist or if there are any questions or concerns that arise at home. Special discussion: Based on the patient's Hx, exam, and Dx evaluation, there is no indication for emergent surgery or inpatient Tx. It is understood by the patient/guardian that if the Sx's persist or worsen they need to return immediately for re-evaluation. 10/10 10:13 Order name: CBC with Diff; Complete Time: 11:43 cp 10/10 11:44 Interpretation: Normal except: HGB 9.3; HCT 29.7; MCV 71.4; MCH 22.4; MCHC 31.3; RDW cp 17.7; EOSINOPHIL % 6.3. 10/10 10:13 Order name: CMP; Complete Time: 11:43 cp 10/10 10:13 Order name: Lipase; Complete Time: 11:43 cp 10/10 10:13 Order name: Urine Microscopic Only; Complete Time: 11:43 cp 10/10 10:38 Order name: Urine Dipstick-Ancillary; Complete Time: 11:43 EDMS 10/10 11:58 Order name: Urine --Ancillary (enter results); Complete Time: 12:57 bd 10/10 10:13 Order name: CT Abd/Pelvis - IV Contrast Only; Complete Time: 12:51 cp 10/10 10:13 Order name: IV Saline Lock; Complete Time: 11:10 cp 10/10 10:13 Order name: Labs collected and sent; Complete Time: 11:10 cp 10/10 10:13 Order name: Urine Dipstick-Ancillary (obtain specimen); Complete Time: 10:39 cp 10/10 10:13 Order name: Urine Test (obtain specimen); Complete Time: 10:39 cp Administered Medications: 11:13 Drug: NS 0.9% 1000 ml Route: IV; Rate: 1 bolus; Site: left antecubital; jg9 13:30 Follow up: IV Status: Completed infusion; IV Intake: 1000ml j9 11:13 Drug: Zofran (Ondansetron) 4 mg Route: IVP; Site: left antecubital; jg9 12:34 Follow up: Response: No adverse reaction; Nausea is decreased j9 11:14 Drug: Ketorolac 15 mg {Note: 08/21 RLQ bilateral flanl pain , RASS-0.} Route: IVP; Site: [facility] [place] left antecubital; 12:00 Follow up: Response: No adverse reaction; Pain is decreased j9 Disposition Summary: 10/10/21 13:21 Discharge Ordered Location: Home cp Problem: new cp Symptoms: have improved cp Condition: Stable cp Diagnosis - Lower abdominal pain, unspecified cp - Anemia, unspecified cp Followup: cp - With: Private Physician - When: 2 - 3 days - Reason: Recheck today's complaints Discharge Instructions: - Discharge Summary Sheet cp - Abdominal Pain, Adult cp - Anemia cp Forms: - Medication Reconciliation Form cp - Thank You Letter cp - Antibiotic Education cp - Prescription Opioid Use cp Prescriptions: - Zofran 4 mg Oral Tablet - take 1 tablet by ORAL route every 12 hours As needed; 20 tablet; Refills: 0, cp Product Selection Permitted - dicyclomine 20 mg Oral Tablet - take 1 tablet by ORAL route 4 times per day; 30 tablet; Refills: 0, Product cp Selection Permitted - Ferrous Sulfate 325 mg (65 mg Iron) Oral Tablet - take 1 tablet by ORAL route every 12 hours; 30 tablet; Refills: 0, Product cp Selection Permitted Addendum: 10/12/2021 23:58 Co-signature as Attending Physician, Jean Carlos Andrews MD I was immediately available on-site r n in the Emergency Department for consultation in the care of the patient.. Signatures: Dispatcher [employer] EDMS Andrews, Jean Carlos, Bal Wilks MD, rn, PA PA cp Gilmore, Jennifer RN RN jg9 Corrections: (The following items were deleted from the chart) 10/11 09:53 10/10 10:25 : Positive for urinary frequency, dark colored urine, Negative for cp vaginal bleeding, vaginal discharge, cp
[2021-10-10 13:48] VITALS: TEMP 98
[2021-10-10 13:52] VITALS: BP 115/60; O2SAT 100
== END 2021-10-10 13:42 | disposition home or self-care (01) ==
LOC: ER 09:53
DX: R10.31 Right lower quadrant pain (principal); D64.9 Anemia, unspecified; I10 Essential (primary) hypertension; F17.210 Nicotine dependence, cigarettes, uncomplicated; Z88.2 Allergy status to sulfonamides
CPT/HCPCS: 36415; 74177; 80053; 81003; 81015; 81025; 83690; 85025; 96361; 96374; 96375; 99284; J2405; J7030; Q9967

== ENCOUNTER 2022-01-16 10:10 | Emergency (ER) | payer SELFPAY ==
--- OUTSIDE RECORDS SUMMARY | 2022-01-16 10:24 | XMS REPORT | Continuity of Care Document ---
:1975 Author Organization [facility] t Address [address] [place] [address] Dr. Liang [address] [place] [address] Care Team Providers Name Role Phone Pcp, Patient Does Not Have A Primary Care Physician +1-000-0 00-0000 UNA HESTER Attending Clinician Unavailable UNA HESTER Attending Clinician Unavailable Doctor Unassigned, [place] Attending Clinician Unavailable IGOR SAAVEDRA Attending Clinician Unavailable DERRELL DIAS Attending Clinician Unavailable REX RODRIGUEZ Attending Clinician Unavailable HILARY MOORE Attending Clinician Unavailable HILARY MOORE Attending Clinician Unavailable Igor Saavedra MD Attending Clinician LULY NY Attending Clinician Unavailable Luly Ny DO Attending Clinician Zane Martinez MD Attending Clinician Pcp-Lab Attending Clinician Unavailable Deonte Aviles Attending Clinician Unavailable UNKNOWN, ATTENDING Attending Clinician Unavailable SALLY MITCHELL Attending Clinician Unavailable SALLY MITCHELL Attending Clinician Unavailable Raleigh Lockwood MD Attending Clinician RALEIGH LOCKWOOD Attending Clinician Unavailable HALIMA CONNOR Attending Clinician Unavailable Halima Connor DO Attending Clinician [place] NOWAK Attending Clinician Unavailable Patti Hutton Attending Clinician CRISTO MARTINEZ Attending Clinician Unavailable PRISCA MORAES Attending Clinician Unavailable KATH DELGADO Attending Clinician Unavailable ANGELA RAUSCH Attending Clinician Unavailable Payers Payer Name Policy Type Policy Number Effective Date Expiration Date S [facility] MEDICAID SSI PENDING 2021 PENDING 00:00:00 Problems Condition Condition Condition Status Onset Resolution Last Treating Co mments Source Name Details Category Date Date Treatment Clinician Date No known No known Disease Unive rs active active ity of problems problems [facility] Allergies, Adverse Reactions, Alerts Allergy Allergy Status Severity Reaction(s) Onset Inactive Treating Comm ents Source Name Type Date Date Clinician Sulfa Propensi Active Hives 2018-0 Univers (Sulfona ty to 4-24 ity of mide adverse 00:00: [place] Antibiot reaction 00 Medica l ics) s Branch SULFA Drug Active Hives 2018-0 Univers (SULFONA Class 4-24 ity of MIDE 00:00: [place] ANTIBIOT 00 Medical ICS) Branch Social History Social Habit Start Date Stop Date Quantity Comments Source Exposure to 2022-01-01 2022-01-11 Not sure [facility] SARS-CoV-2 00:00:00 11:09:[address] [facility] (event) [place] Tobacco use and 2021-08-24 2021-08-24 Smokeless tobacco Un iversity of exposure 00:00:00 00:00:00 non-user [facility] Sex Assigned At [birth year] Universit y of 00:00:00 00:00:00 [facility] Smoking Status Start Date Stop Date Source Never smoked tobacco [facility] Medications Ordered Filled Start Stop Current Ordering Indication Dosage Frequency Signature Comments Components Source Medication Medication Date Date Medication? Clinician (SIG) Name Name traZODone 2021-02 Yes [id number] 50mg Take 1 U nivers 50 mg 1-30 tablet by ity of tablet 00:00: mouth at [place] 00 bedtime. Medical May cut Branch tablet in half. lamoTRIgine 2021-02 Yes [id number] 100mg Take 1 Univers 100 mg 1-30 tablet by ity of tablet 00:00: mouth in [place] 00 the Medical morning Branch and 1 tablet in the evening. traZODone 2021-02 Yes [id number] 50mg Take 1 U nivers 50 mg 1-30 tablet by ity of tablet 00:00: mouth at [place] 00 bedtime. Medical May cut Branch tablet in half. lamoTRIgine 2021-02 Yes [id number] 100mg Take 1 [facility] 100 mg 1-30 tablet by ity of tablet 00:00: mouth in [place] 00 the Medical morning Branch and 1 tablet in the evening. traZODone 2021-02 Yes [id number] 50mg Take 1 U nivers 50 mg 1-30 tablet by ity of tablet 00:00: mouth at [place] 00 bedtime. Medical May cut Branch tablet in half. lamoTRIgine 2021-02 Yes [id number] 100mg Take 1 [facility] 100 mg 1-30 tablet by ity of tablet 00:00: mouth in [place] 00 the Medical morning Branch and 1 tablet in the evening. DULoxetine 2021-02 Yes [id number] 60mg Take 1 U nivers 60 mg 1-28 capsule by ity of capsule 00:00: mouth in [place] 00 the Medical morning Branch and 1 capsule in the evening. clonazePAM 2021-02 Yes [id number] Take 1 U nivers 1 mg tablet 1-28 tablet by ity of 00:00: mouth [place] 00 twice Medical daily as Branch needed for anxiety. DULoxetine 2021-02 Yes [id number] 60mg Take 1 U nivers 60 mg 1-28 capsule by ity of capsule 00:00: mouth in [place] 00 the Medical morning Branch and 1 capsule in the evening. clonazePAM 2021-02 Yes [id number] Take 1 U nivers 1 mg tablet 1-28 tablet by ity of 00:00: mouth [place] 00 twice Medical daily as Branch needed for anxiety. DULoxetine 2021-02 Yes [id number] 60mg Take 1 U nivers 60 mg 1-28 capsule by ity of capsule 00:00: mouth in [place] 00 the Medical morning Branch and 1 capsule in the evening. clonazePAM 2021-02 Yes [id number] Take 1 U nivers 1 mg tablet 1-28 tablet by ity of 00:00: mouth [place] 00 twice Medical daily as Branch needed for anxiety. DULoxetine 2021-02 Yes [id number] 60mg Take 1 U nivers 60 mg 1-28 capsule by ity of capsule 00:00: mouth in [place] 00 the Medical morning Branch and 1 capsule in the evening. clonazePAM 2021-02 Yes [id number] Take 1 U nivers 1 mg tablet 1-28 tablet by ity of 00:00: mouth [place] 00 twice Medical daily as Branch needed for anxiety. DULoxetine 2021-02 Yes [id number] 60mg Take 1 U nivers 60 mg 1-28 capsule by ity of capsule 00:00: mouth in [place] 00 the Medical morning Branch and 1 capsule in the evening. clonazePAM 2021-02 Yes [id number] Take 1 U nivers 1 mg tablet 1-28 tablet by ity of 00:00: mouth [place] 00 twice Medical daily as Branch needed for anxiety. traZODone 2021-02 Yes [id number] 50mg Take 1 U nivers 50 mg 1-22 tablet by ity of tablet 00:00: mouth at [place] [address] bedtime. Medical May cut Branch tablet in half. traZODone 2021-02 Yes [id number] 50mg Take 1 U nivers 50 mg 1-22 tablet by ity of tablet 00:00: mouth at [place] [address] bedtime. Medical May cut Branch tablet in half. traZODone 2021-02 Yes [id number] 50mg Take 1 U nivers 50 mg 1-22 tablet by ity of tablet 00:00: mouth at [place] [address] bedtime. Medical May cut Branch tablet in half. traZODone 2021-02- No [id number] 50mg Take 1 Univers 50 mg 1-22 11-30 tablet by ity of tablet 00:00: 00:00 mouth at [place] 00 :00 bedtime. Medical May cut Branch tablet in half. traZODone 2021-02- No [id number] 50mg Take 1 Univers 50 mg 1-22 11-30 tablet by ity of tablet 00:00: 00:00 mouth at [place] 00 :00 bedtime. Medical May cut Branch tablet in half. traZODone 2021-02- No [id number] 50mg Take 1 [facility] 50 mg 1-22 11-30 tablet by ity of tablet 00:00: 00:00 mouth at [place] 00 :00 bedtime. Medical May cut Branch tablet in half. DULoxetine 2022-1 Yes [id number] 60mg Take 1 U nivers 60 mg 0-25 capsule by ity of capsule 00:00: mouth in [place] 00 the Medical morning Branch and 1 capsule in the evening. DULoxetine 2021-02 Yes [id number] 60mg Take 1 U nivers 60 mg 0-25 capsule by ity of capsule 00:00: mouth in [place] 00 the Medical morning Branch and 1 capsule in the evening. DULoxetine 2021-02 Yes [id number] 60mg Take 1 U nivers 60 mg 0-25 capsule by ity of capsule 00:00: mouth in [place] 00 the Medical morning Branch and 1 capsule in the evening. DULoxetine 2021-02- No [id number] 60mg Take 1 Univers 60 mg 0-25 11-28 capsule by ity of capsule 00:00: 00:00 mouth in [place] 00 :00 the [facility] morning Branch and 1 capsule in the evening. DULoxetine 2021-02- No [id number] 60mg Take 1 Univers 60 mg 0-25 11-28 capsule by ity of capsule 00:00: 00:00 mouth in [place] 00 :00 the [facility] morning Branch and 1 capsule in the evening. DULoxetine 2021-02- No [id number] 60mg Take 1 [facility] 60 mg 0-25 11-28 capsule by ity of capsule 00:00: 00:00 mouth in [place] 00 :00 the Medical morning Branch and 1 capsule in the evening. DULoxetine 2021-02- No [id number] 60mg Take 1 [facility] 60 mg 0-25 11-28 capsule by ity of capsule 00:00: 00:00 mouth in [place] 00 :00 the [facility] morning Branch and 1 capsule in the evening. clonazePAM 2021-02 Yes [id number] Take 1 U nivers 1 mg tablet 0-20 tablet by ity of 00:00: mouth [place] 00 twice Medical daily as Branch needed for anxiety. lithium 600 2021-02 Yes [id number] 600mg Take 1 Univers mg capsule 0-20 capsule by ity of 00:00: mouth in [place] 00 the [facility] morning Branch and 1 capsule in the evening. lamoTRIgine 2021-02 Yes [id number] 50mg Take 2 [facility] 25 mg 0-20 tablets by ity of tablet 00:00: mouth in [place] 00 the [facility] morning Branch and 2 tablets in the evening. clonazePAM 2021-02 Yes [id number] Take 1 U nivers 1 mg tablet 0-20 tablet by ity of 00:00: mouth [place] [address] twice Medical daily as Branch needed for anxiety. lithium 600 2021-02 Yes [id number] 600mg Take 1 Univers mg capsule 0-20 capsule by ity of 00:00: mouth in [place] [address] the [facility] morning Branch and 1 capsule in the evening. lamoTRIgine 2021-02 Yes [id number] 50mg Take 2 Univers 25 mg 0-20 tablets by ity of tablet 00:00: mouth in [place] [address] the [facility] morning Branch and 2 tablets in the evening. clonazePAM 2021-02 Yes [id number] Take 1 U nivers 1 mg tablet 0-20 tablet by ity of 00:00: mouth [place] [address] twice Medical daily as Branch needed for anxiety. lithium 600 2021-02 Yes [id number] 600mg Take 1 [facility] mg capsule 0-20 capsule by ity of 00:00: mouth in [place] [address] the [facility] morning [place] and 1 capsule in the evening. lamoTRIgine 2021-02 Yes [id number] 50mg Take 2 Univers 25 mg 0-20 tablets by ity of tablet 00:00: mouth in [place] [address] the [facility] morning [place] and 2 tablets in the evening. lithium 600 2021-02 Yes [id number] 600mg Take 1 Univers mg capsule 0-20 capsule by ity of 00:00: mouth in [place] [address] the [facility] morning [place] and 1 capsule in the evening. lamoTRIgine 2021-02 Yes [id number] 50mg Take 2 Univers 25 mg 0-20 tablets by ity of tablet 00:00: mouth in [place] [address] the [facility] morning [place] and 2 tablets in the evening. lithium 600 2021-02 Yes [id number] 600mg Take 1 Univers mg capsule 0-20 capsule by ity of 00:00: mouth in [place] [address] the [facility] morning [place] and 1 capsule in the evening. lamoTRIgine 2021-02 Yes [id number] 50mg Take 2 [facility] 25 mg 0-20 tablets by ity of tablet 00:00: mouth in [place] [address] the [facility] morning [place] and 2 tablets in the evening. lithium 600 2021-02 Yes [id number] 600mg Take 1 [facility] mg capsule 0-20 capsule by ity of 00:00: mouth in [place] [address] the [facility] morning [place] and 1 capsule in the evening. lithium 600 2021-02 Yes [id number] 600mg Take 1 [facility] mg capsule 0-20 capsule by ity of 00:00: mouth in [place] 00 the Medical morning Branch and 1 capsule in the evening. lithium 600 2021-02 Yes [id number] 600mg Take 1 [facility] mg capsule 0-20 capsule by ity of 00:00: mouth in [place] 00 the Medical morning Branch and 1 capsule in the evening. lamoTRIgine 2021-02- No [id number] 50mg Take 2 Univers 25 mg 0-20 11-30 tablets by ity of tablet 00:00: 00:00 mouth in [place] 00 :00 the Medical morning Branch and 2 tablets in the evening. lamoTRIgine 2021-02- No [id number] 50mg Take 2 Univers 25 mg 0-20 11-30 tablets by ity of tablet 00:00: 00:00 mouth in [place] 00 :00 the Medical morning Branch and 2 tablets in the evening. lamoTRIgine 2021-02- No [id number] 50mg Take 2 Univers 25 mg 0-20 11-30 tablets by ity of tablet 00:00: 00:00 mouth in [place] 00 :00 the Medical morning Branch and 2 tablets in the evening. clonazePAM 2021-02 No [id number] Take 1 Univers 1 mg tablet 0-20 11-28 tablet by it y of 00:00: 00:00 mouth [place] 00 :00 twice Medical daily as Branch needed for anxiety. clonazePAM 2021-02 No [id number] Take 1 Univers 1 mg tablet 0-20 11-28 tablet by it y of 00:00: 00:00 mouth [place] 00 :00 twice Medical daily as Branch needed for anxiety. clonazePAM 2021-02 No [id number] Take 1 Univers 1 mg tablet 0-20 11-28 tablet by it y of 00:00: 00:00 mouth [place] 00 :00 twice Medical daily as Branch needed for anxiety. clonazePAM 2021-02- No [id number] Take 1 Univers 1 mg tablet 0-20 11-28 tablet by it y of 00:00: 00:00 mouth [place] 00 :00 twice Medical daily as Branch needed for anxiety. lamoTRIgine Yes [id number] 50mg Take 2 Univers 25 mg 8-26 tablets by ity of tablet 00:00: mouth in [place] 00 the Medical morning Branch and 2 tablets in the evening. lamoTRIgine 2021- No [id number] 50mg Take 2 Univers 25 mg 8-26 10-19 tablets by ity of tablet 00:00: 00:00 mouth in [place] 00 :00 the Medical morning Branch and 2 tablets in the evening. lamoTRIgine 2021-0 2021- No [id number] 50mg Take 2 Univers 25 mg 8-26 10-19 tablets by ity of tablet 00:00: 00:00 mouth in [place] 00 :00 the Medical morning Branch and 2 tablets in the evening. clonazePAM 2021-0 Yes [id number] Take no Univers 1 mg tablet 8-25 more than ity of 00:00: 1 mg twice [place] 00 daily as Medical needed for Branch anxiety lithium 600 2021-0 Yes [id number] 600mg Take 1 Univers mg capsule 8-25 capsule by ity of 00:00: mouth in [place] 00 the Medical morning Branch and 1 capsule in the evening. clonazePAM 2021-2021- No [id number] Take no Univers 1 mg tablet 8-25 10-19 more than it y of 00:00: 00:00 1 mg twice [place] 00 :00 daily as Medical needed for Branch anxiety lithium 600 2021-0 2021- No [id number] 600mg Take 1 Univers mg capsule 8-25 10-19 capsule by it y of 00:00: 00:00 mouth in [place] 00 :00 the Medical morning Branch and 1 capsule in the evening. clonazePAM 2021- No [id number] Take no Univers 1 mg tablet 8-25 10-19 more than it y of 00:00: 00:00 1 mg twice [place] 00 :00 daily as Medical needed for Branch anxiety lithium 600 2021-0 2021- No [id number] 600mg Take 1 Univers mg capsule 8-25 10-19 capsule by it y of 00:00: 00:00 mouth in [place] 00 :00 the Medical morning Branch and 1 capsule in the evening. Lamotrigine 2021-0 2021- No [id number] 50mg Take 1 Univers 50 mg 8-25 08-26 tablet by ity of tablet 00:00: 00:00 mouth in [place] 00 :00 the Medical morning Branch and 1 tablet in the evening. Lamotrigine 2021-0 2021- No [id number] 50mg Take 1 Univers 50 mg 8-11 08-25 tablet by ity of tablet 00:00: 00:00 mouth in [place] 00 :00 the Medical morning Branch and 1 tablet in the evening. DULoxetine Yes [id number] 60mg Take 1 U nivers 60 mg 7-27 capsule by ity of capsule 00:00: mouth in [place] 00 the Medical morning Branch and 1 capsule in the evening. DULoxetine 2021- No [id number] 60mg Take 1 Univers 60 mg 7-27 10-24 capsule by ity of capsule 00:00: 00:00 mouth in [place] 00 :00 the Medical morning Branch and 1 capsule in the evening. DULoxetine 2021- No [id number] 60mg Take 1 Univers 60 mg 7-27 10-24 capsule by ity of capsule 00:00: 00:00 mouth in [place] 00 :00 the Medical morning Branch and 1 capsule in the evening. DULoxetine 2021- No [id number] 60mg Take 1 Univers 60 mg 7-27 10-24 capsule by ity of capsule 00:00: 00:00 mouth in [place] 00 :00 the Medical morning Branch and 1 capsule in the evening. Lamotrigine 2021- No [id number] 50mg Take 1 Univers 50 mg 7-18 08-11 tablet by ity of tablet 00:00: 00:00 mouth in [place] 00 :00 the Medical morning Branch and 1 tablet in the evening. lithium 600 2021- No [id number] 600mg Take 1 Univers mg capsule 7-13 08-25 capsule by it y of 00:00: 00:00 mouth in [place] 00 :00 the Medical morning Branch and 1 capsule in the evening. traZODone 2021-0 Yes [id number] 50mg Take 1 U nivers 50 mg 6-28 tablet by ity of tablet 00:00: mouth at [place] [address] bedtime. Medical May cut Branch tablet in half. DULoxetine 0 Yes [id number] 60mg Take 1 U nivers 60 mg 6-28 capsule by ity of capsule 00:00: mouth 2 [place] 00 (two) Medical times Branch daily. traZODone 0 Yes [id number] 50mg Take 1 U nivers 50 mg 6-28 tablet by ity of tablet 00:00: mouth at [place] [address] bedtime. Medical May cut Branch tablet in half. DULoxetine 2022-0 Yes [id number] 60mg Take 1 U nivers 60 mg 6-28 capsule by ity of capsule 00:00: mouth 2 [place] 00 (two) Medical times Branch daily. traZODone Yes [id number] 50mg Take 1 U nivers 50 mg 6-28 tablet by ity of tablet 00:00: mouth at [place] 00 bedtime. Medical May cut Branch tablet in half. DULoxetine Yes [id number] 60mg Take 1 U nivers 60 mg 6-28 capsule by ity of capsule 00:00: mouth 2 [place] 00 (two) Medical times Branch daily. DULoxetine Yes [id number] 60mg Take 1 U nivers 60 mg 6-28 capsule by ity of capsule 00:00: mouth 2 [place] 00 (two) Medical times Branch daily. traZODone 2021- No [id number] 50mg Take 1 Univers 50 mg 6-28 11-21 tablet by ity of tablet 00:00: 00:00 mouth at [place] 00 :00 bedtime. Medical May cut Branch tablet in half. traZODone 2021- No [id number] 50mg Take 1 Univers 50 mg 6-28 11-21 tablet by ity of tablet 00:00: 00:00 mouth at [place] 00 :00 bedtime. Medical May cut Branch tablet in half. traZODone 2021- No [id number] 50mg Take 1 Univers 50 mg 6-28 11-21 tablet by ity of tablet 00:00: 00:00 mouth at [place] 00 :00 bedtime. Medical May cut Branch tablet in half. traZODone 2021- No [id number] 50mg Take 1 Univers 50 mg 6-28 11-21 tablet by ity of tablet 00:00: 00:00 mouth at [place] 00 :00 bedtime. Medical May cut Branch tablet in half. traZODone 2021- No [id number] 50mg Take 1 [facility] 50 mg 6-28 11-21 tablet by ity of tablet 00:00: 00:00 mouth at [place] 00 :00 bedtime. Medical May cut Branch tablet in half. clonazePAM 2021- No [id number] Take no Univers 1 mg tablet 6-28 08-25 more than it y of 00:00: 00:00 1 mg twice [place] 00 :00 daily as Medical needed for Branch anxiety vitamin 2021-0 Yes [id number] 1000ug Take 1 U nivers B-12 1,000 4-11 tablet by ity of mcg tablet 00:00: mouth [place] 00 daily. Medical Branch cyanocobala 2021-0 Yes [id number] 1000ug 1 mL by Univers min 1,000 4-11 Intramuscu ity of mcg/mL 00:00: lar route [place] injection 00 weekly. Medical Branch vitamin 2021-0 Yes [id number] 1000ug Take 1 U nivers B-12 1,000 4-11 tablet by ity of mcg tablet 00:00: mouth [place] 00 daily. Medical Branch cyanocobala 0 Yes [id number] 1000ug 1 mL by Univers min 1,000 4-11 Intramuscu ity of mcg/mL 00:00: lar route [place] injection 00 weekly. Medical Branch vitamin 2021-0 Yes [id number] 1000ug Take 1 U nivers B-12 1,000 4-11 tablet by ity of mcg tablet 00:00: mouth [place] 00 daily. Medical Branch cyanocobala 0 Yes [id number] 1000ug 1 mL by Univers min 1,000 4-11 Intramuscu ity of mcg/mL 00:00: lar route [place] injection 00 weekly. Medical Branch vitamin 2021-0 Yes [id number] 1000ug Take 1 U nivers B-12 1,000 4-11 tablet by ity of mcg tablet 00:00: mouth [place] 00 daily. Medical Branch cyanocobala 2021-0 Yes [id number] 1000ug 1 mL by Univers min 1,000 4-11 Intramuscu ity of mcg/mL 00:00: lar route [place] injection 00 weekly. Medical Branch vitamin 2021-0 Yes [id number] 1000ug Take 1 U nivers B-12 1,000 4-11 tablet by ity of mcg tablet 00:00: mouth [place] 00 daily. Medical Branch cyanocobala 2021-0 Yes [id number] 1000ug 1 mL by Univers min 1,000 4-11 Intramuscu ity of mcg/mL 00:00: lar route [place] injection 00 weekly. Medical Branch vitamin 2021-0 Yes [id number] 1000ug Take 1 U nivers B-12 1,000 4-11 tablet by ity of mcg tablet 00:00: mouth [place] 00 daily. Medical Branch cyanocobala Yes [id number] 1000ug 1 mL by Univers min 1,000 4-11 Intramuscu ity of mcg/mL 00:00: lar route [place] injection 00 weekly. Medical Branch vitamin 0 Yes [id number] 1000ug Take 1 U nivers B-12 1,000 4-11 tablet by ity of mcg tablet 00:00: mouth [place] 00 daily. Medical Branch cyanocobala Yes [id number] 1000ug 1 mL by Univers min 1,000 4-11 Intramuscu ity of mcg/mL 00:00: lar route [place] injection 00 weekly. [facility] Branch vitamin Yes [id number] 1000ug Take 1 U nivers B-12 1,000 4-11 tablet by ity of mcg tablet 00:00: mouth [place] 00 daily. [facility] Branch cyanocobala Yes [id number] 1000ug 1 mL by Univers min 1,000 4-11 Intramuscu ity of mcg/mL 00:00: lar route [place] injection 00 weekly. [facility] Branch vitamin Yes [id number] 1000ug Take 1 U nivers B-12 1,000 4-11 tablet by ity of mcg tablet 00:00: mouth [place] 00 daily. [facility] Branch cyanocobala Yes [id number] 1000ug 1 mL by Univers min 1,000 4-11 Intramuscu ity of mcg/mL 00:00: lar route [place] injection 00 weekly. [facility] Branch losartan Yes 20mg Take 20 mg Uni vers potassium 4-05 by mouth. ity o f (LOSARTAN 09:24: [place] ORAL) [address] [place] [address] FUROSEMIDE Yes 40mg Take 40 mg U nivers ORAL 4-05 by mouth ity of 09:24: daily. [address] losartan Yes 20mg Take 20 mg Uni vers potassium 4-05 by mouth. ity o f (LOSARTAN 09:24: [place] ORAL) [address] [place] [address] FUROSEMIDE Yes 40mg Take 40 mg U nivers ORAL 4-05 by mouth ity of 09:24: daily. [address] losartan Yes 20mg Take 20 mg Uni vers potassium 4-05 by mouth. ity o f (LOSARTAN 09:24: [place] ORAL) [address] [place] [address] FUROSEMIDE 0 Yes 40mg Take 40 mg U nivers ORAL 4-05 by mouth ity of 09:24: daily. [address] losartan 0 Yes 20mg Take 20 mg Uni vers potassium 4-05 by mouth. ity o f (LOSARTAN 09:24: [place] ORAL) [address] [place] [address] FUROSEMIDE 0 Yes 40mg Take 40 mg U nivers ORAL 4-05 by mouth ity of 09:24: daily. [address] losartan 0 Yes 20mg Take 20 mg Uni vers potassium 4-05 by mouth. ity o f (LOSARTAN 09:24: [place] ORAL) [address] [place] [address] FUROSEMIDE 0 Yes 40mg Take 40 mg U nivers ORAL 4-05 by mouth ity of 09:24: daily. [address] losartan 0 Yes 20mg Take 20 mg Uni vers potassium 4-05 by mouth. ity o f (LOSARTAN 09:24: [place] ORAL) [address] [place] [address] FUROSEMIDE 0 Yes 40mg Take 40 mg U nivers ORAL 4-05 by mouth ity of 09:24: daily. [address] losartan 0 Yes 20mg Take 20 mg Uni vers potassium 4-05 by mouth. ity o f (LOSARTAN 09:24: [place] ORAL) [address] [place] [address] FUROSEMIDE 0 Yes 40mg Take 40 mg U nivers ORAL 4-05 by mouth ity of 09:24: daily. [address] losartan 2021-0 Yes 20mg Take 20 mg Uni vers potassium 4-05 by mouth. ity o f (LOSARTAN 09:24: [place] ORAL) [address] [place] [address] FUROSEMIDE 0 Yes 40mg Take 40 mg U nivers ORAL 4-05 by mouth ity of 09:24: daily. [address] losartan 0 Yes 20mg Take 20 mg Uni vers potassium 4-05 by mouth. ity o f (LOSARTAN 09:24: [place] ORAL) [address] [place] [address] FUROSEMIDE 0 Yes 40mg Take 40 mg U nivers ORAL 4-05 by mouth ity of 09:24: daily. [address] gabapentin 2021-0 Yes [id number] 300mg Take 1 Univers 300 mg 4-05 capsule by ity of capsule 00:00: mouth 3 [place] 00 (three) Medical times Branch daily. rizatriptan 2022-0 Yes [id number] 5mg Take 1 Univers 5 mg 4-05 tablet by ity of disintegrat 00:00: mouth as [place] ing tablet 00 needed for Med ical Migraine Branch (Take 5mg at the beginning of the headache can repeat 2h after if headaches persists). May repeat in 2 hours if needed magnesium 2022-0 Yes [id number] 400mg Take 2 Univers gluconate 4-05 tablets by ity of 200 mg 00:00: mouth 2 [place] tablet 00 (two) Medical times Branch daily. gabapentin 2022-0 Yes [id number] 300mg Take 1 [facility] 300 mg 4-05 capsule by ity of capsule 00:00: mouth 3 [place] (three) Medical times Branch daily. rizatriptan 2022-0 Yes [id number] 5mg Take 1 [facility] 5 mg 4-05 tablet by ity of disintegrat 00:00: mouth as [place] ing tablet 00 needed for Med ical Migraine Branch (Take 5mg at the beginning of the headache can repeat 2h after if headaches persists). May repeat in 2 hours if needed magnesium 2022-0 Yes [id number] 400mg Take 2 [facility] gluconate 4-05 tablets by ity of 200 mg 00:00: mouth 2 [place] tablet 00 (two) Medical times Branch daily. gabapentin 2022-0 Yes [id number] 300mg Take 1 [facility] 300 mg 4-05 capsule by ity of capsule 00:00: mouth 3 [place] (three) Medical times Branch daily. rizatriptan 2022-0 Yes [id number] 5mg Take 1 [facility] 5 mg 4-05 tablet by ity of disintegrat 00:00: mouth as [place] ing tablet 00 needed for Med ical Migraine Branch (Take 5mg at the beginning of the headache can repeat 2h after if headaches persists). May repeat in 2 hours if needed magnesium 2022-0 Yes [id number] 400mg Take 2 Univers gluconate 4-05 tablets by ity of 200 mg 00:00: mouth 2 [place] tablet 00 (two) Medical times Branch daily. gabapentin 2022-0 Yes [id number] 300mg Take 1 Univers 300 mg 4-05 capsule by ity of capsule 00:00: mouth 3 [place] (three) Medical times Branch daily. rizatriptan 2022-0 Yes [id number] 5mg Take 1 Univers 5 mg 4-05 tablet by ity of disintegrat 00:[place]: [place] 00 needed for Med ical Migraine Branch (Take 5mg at the beginning of the headache can repeat 2h after if headaches persists). May repeat in 2 hours if needed magnesium 2022-0 Yes [id number] 400mg Take 2 Univers gluconate 4-05 tablets by ity of 200 mg 00:00: mouth 2 [place] tablet 00 (two) Medical times Branch daily. gabapentin 2022-0 Yes [id number] 300mg Take 1 Univers 300 mg 4-05 capsule by ity of capsule 00:00: mouth 3 [place] 00 (three) Medical times Branch daily. rizatriptan 2022-0 Yes [id number] 5mg Take 1 Univers 5 mg 4-05 tablet by ity of disintegrat [place]: [place] 00 needed for Med ical Migraine Branch (Take 5mg at the beginning of the headache can repeat 2h after if headaches persists). May repeat in 2 hours if needed magnesium 2022-0 Yes [id number] 400mg Take 2 [facility] gluconate 4-05 tablets by ity of 200 mg 00:00: mouth 2 [place] tablet 00 (two) Medical times Branch daily. gabapentin 2022-0 Yes [id number] 300mg Take 1 Univers 300 mg 4-05 capsule by ity of capsule 00:00: mouth 3 [place] 00 (three) Medical times Branch daily. rizatriptan 2022-0 Yes [id number] 5mg Take 1 [facility] 5 mg 4-05 tablet by ity of disintegr[place]: [place] 00 needed for Med ical Migraine Branch (Take 5mg at the beginning of the headache can repeat 2h after if headaches persists). May repeat in 2 hours if needed magnesium 2022-0 Yes [id number] 400mg Take 2 [facility] gluconate 4-05 tablets by ity of 200 mg 00:00: mouth 2 [place] tablet 00 (two) Medical times Branch daily. gabapentin 2022-0 Yes [id number] 300mg Take 1 [facility] 300 mg 4-05 capsule by ity of capsule 00:00: mouth 3 [place] 00 (three) Medical times Branch daily. rizatriptan 2022-0 Yes [id number] 5mg Take 1 [facility] 5 mg 4-05 tablet by ity of disintegr[place] 00:[place]: [place] 00 needed for Med ical Migraine Branch (Take 5mg at the beginning of the headache can repeat 2h after if headaches persists). May repeat in 2 hours if needed magnesium 2022-0 Yes [id number] 400mg Take 2 [facility] gluconate 4-05 tablets by ity of 200 mg 00:00: mouth 2 [place] tablet 00 (two) Medical times Branch daily. gabapentin 2022-0 Yes [id number] 300mg Take 1 [facility] 300 mg 4-05 capsule by ity of capsule 00:00: mouth 3 [place] 00 (three) Medical times Branch daily. rizatriptan 2022-0 Yes [id number] 5mg Take 1 [facility] 5 mg 4-05 tablet by ity of dis[place] 00:[place]: [place] 00 needed for Med ical Migraine Branch (Take 5mg at the beginning of the headache can repeat 2h after if headaches persists). May repeat in 2 hours if needed magnesium 2022-0 Yes [id number] 400mg Take 2 [facility] gluconate 4-05 tablets by ity of 200 mg 00:00: mouth 2 [place] tablet 00 (two) Medical times Branch daily. gabapentin 2-0 Yes [id number] 300mg Take 1 [facility] 300 mg 4-05 capsule by ity of capsule 00:00: mouth 3 [place] 00 (three) Medical times Branch daily. rizatriptan 2022-0 Yes [id number] 5mg Take 1 [facility] 5 mg 4-05 tablet by ity of dis[place]at 00:[place]: [place] 00 needed for Med ical Migraine Branch (Take 5mg at the beginning of the headache can repeat 2h after if headaches persists). May repeat in 2 hours if needed magnesium 2-0 Yes [id number] 400mg Take 2 [facility] gluconate 4-05 tablets by ity of 200 mg 00:00: mouth 2 [place] tablet 00 (two) Medical times Branch daily. ondansetron 2020-0 Yes [id number] 4mg Take 1 Univers (ZOFRAN 7-22 tablet by ity of ODT) 4 mg 00:00: mouth [place] disintegrat 00 every 8 Medic al ing tablet (eight) Branch hours as needed for Nausea and Vomiting (N/V). ondansetron 2020-0 Yes [id number] 4mg Take 1 Univers (ZOFRAN 7-22 tablet by ity of ODT) 4 mg 00:00: mouth [place] disintegrat 00 every 8 Medic al ing tablet (eight) Branch hours as needed for Nausea and Vomiting (N/V). ondansetron 2020-0 Yes [id number] 4mg Take 1 [facility] (ZOFRAN 7-22 tablet by ity of ODT) 4 mg 00:00: mouth [place] disintegrat 00 every 8 Medic al ing tablet (eight) Branch hours as needed for Nausea and Vomiting (N/V). ondansetron 2020-0 Yes [id number] 4mg Take 1 Univers (ZOFRAN 7-22 tablet by ity of ODT) 4 mg 00:00: mouth [place] disintegrat 00 every 8 Medic al ing tablet (eight) Branch hours as needed for Nausea and Vomiting (N/V). ondansetron 2020-0 Yes [id number] 4mg Take 1 Univers (ZOFRAN 7-22 tablet by ity of ODT) 4 mg 00:00: mouth [place] disintegrat 00 every 8 Medic al ing tablet (eight) Branch hours as needed for Nausea and Vomiting (N/V). ondansetron 2020-0 Yes [id number] 4mg Take 1 Univers (ZOFRAN 7-22 tablet by ity of ODT) 4 mg 00:00: mouth [place] disintegrat 00 every 8 Medic al ing tablet (eight) Branch hours as needed for Nausea and Vomiting (N/V). ondansetron 2020-0 Yes [id number] 4mg Take 1 Univers (ZOFRAN 7-22 tablet by ity of ODT) 4 mg 00:00: mouth [place] disintegrat 00 every 8 Medic al ing tablet (eight) Branch hours as needed for Nausea and Vomiting (N/V). ondansetron 2020-0 Yes [id number] 4mg Take 1 Univers (ZOFRAN 7-22 tablet by ity of ODT) 4 mg 00:00: mouth [place] disintegrat 00 every 8 Medic al ing tablet (eight) Branch hours as needed for Nausea and Vomiting (N/V). ondansetron 2020-0 Yes [id number] 4mg Take 1 Univers (ZOFRAN 7-22 tablet [...] by mouth ity of tablet 13:17: at [place] 52 bedtime. Medical Branch allopurinoL 2020-0 Yes 100mg Take 100 U nivers 100 mg 6-24 mg by ity of tablet 13:17: mouth [place] 52 daily. Medical Branch atorvastati 2020-0 Yes 10mg Take 10 mg Univers n 10 mg 6-24 by mouth ity of tablet 13:17: at [place] 52 bedtime. Medical Branch allopurinoL 2020-0 Yes 100mg Take 100 U nivers 100 mg 6-24 mg by ity of tablet 13:17: mouth [place] 52 daily. Medical Branch atorvastati 2020-0 Yes 10mg Take 10 mg Univers n 10 mg 6-24 by mouth ity of tablet 13:17: at [place] 52 bedtime. Medical Branch allopurinoL 2020-0 Yes 100mg Take 100 U nivers 100 mg 6-24 mg by ity of tablet 13:17: mouth [place] 52 daily. Medical Branch atorvastati 2020-0 Yes 10mg Take 10 mg Univers n 10 mg 6-24 by mouth ity of tablet 13:17: at [place] 52 bedtime. Medical Branch allopurinoL 2020-0 Yes 100mg Take 100 U nivers 100 mg 6-24 mg by ity of tablet 13:17: mouth [place] 52 daily. Medical Branch atorvastati 2020-0 Yes 10mg Take 10 mg Univers n 10 mg 6-24 by mouth ity of tablet 13:17: at [place] 52 bedtime. Medical Branch allopurinoL 2020-0 Yes 100mg Take 100 U nivers 100 mg 6-24 mg by ity of tablet 13:17: mouth [place] 52 daily. Medical Branch atorvastati 2020-0 Yes 10mg Take 10 mg Univers n 10 mg 6-24 by mouth ity of tablet 13:17: at [place] 52 bedtime. Medical Branch allopurinoL 2020-0 Yes 100mg Take 100 U nivers 100 mg 6-24 mg by ity of tablet 13:17: mouth [place] 52 daily. Medical Branch atorvastati 2020-0 Yes 10mg Take 10 mg Univers n 10 mg 6-24 by mouth ity of tablet 13:17: at [place] [address] bedtime. Medical Branch allopurinoL 2020-0 Yes 100mg Take 100 U nivers 100 mg 6-24 mg by ity of tablet 13:17: mouth [place] 52 daily. Medical Branch atorvastati 2020-0 Yes 10mg Take 10 mg Univers n 10 mg 6-24 by mouth ity of tablet 13:17: at [place] 52 bedtime. Medical Branch allopurinoL 2020-0 Yes 100mg Take 100 U nivers 100 mg 6-24 mg by ity of tablet 13:17: mouth [place] 52 daily. Medical Branch atorvastati 2020-0 Yes 10mg Take 10 mg Univers n 10 mg 6-24 by mouth ity of tablet 13:17: at [place] [address] bedtime. Medical Branch propranolol 2020-0 Yes 80mg Take 80 mg Univers 80 mg 6-24 by mouth 2 ity of tablet 13:12: (two) [place] 38 times Medical daily. Branch propranolol 2020-0 Yes 80mg Take 80 mg Univers 80 mg 6-24 by mouth 2 ity of tablet 13:12: (two) [place] 38 times Medical daily. Branch propranolol 2020-0 Yes 80mg Take 80 mg Univers 80 mg 6-24 by mouth 2 ity of tablet 13:12: (two) [place] 38 times Medical daily. Branch propranolol 2020-0 Yes 80mg Take 80 mg Univers 80 mg 6-24 by mouth 2 ity of tablet 13:12: (two) [place] 38 times Medical daily. Branch propranolol 2020-0 Yes 80mg Take 80 mg Univers 80 mg 6-24 by mouth 2 ity of tablet 13:12: (two) [place] 38 times Medical daily. Branch propranolol 2020-0 Yes 80mg Take 80 mg Univers 80 mg 6-24 by mouth 2 ity of tablet 13:12: (two) [place] 38 times Medical daily. Branch propranolol 2020-0 Yes 80mg Take 80 mg Univers 80 mg 6-24 by mouth 2 ity of tablet 13:12: (two) [place] 38 times Medical daily. Branch propranolol 2020-0 Yes 80mg Take 80 mg Univers 80 mg 6-24 by mouth 2 ity of tablet 13:12: (two) [place] 38 times Medical daily. Branch propranolol 2020-0 Yes 80mg Take 80 mg Univers 80 mg 6-24 by mouth 2 ity of tablet 13:12: (two) [place] 38 times Medical daily. Branch Vital Signs Vital Name Observation Time Observation Value Comments Source Respiratory rate 2022-01-11 17:11:00 18 /min [facility] [place] [facility] [place] Body height 2022-01-11 17:11:00 167.6 cm [facility] [place] [facility] [place] Body weight 2022-01-11 17:11:00 100.699 kg [facility] [place] [facility] [place] BMI 2022-01-11 17:11:00 35.83 kg/m2 [facility] [place] [facility] Systolic blood 2021-08-24 14:24:00 133 mm[Hg] Univer sity of pressure [place] [facility] [place] Diastolic blood 2021-08-24 14:24:00 73 mm[Hg] Unive rsity of pressure [facility] Heart rate 2021-08-24 14:24:00 69 /min [facility] [place] [facility] Respiratory rate 2021-08-24 14:24:00 18 /min [facility] Body height 2021-08-24 14:24:00 167.6 cm [facility] [place] [facility] Body weight 2021-08-24 14:24:00 100.245 kg [facility] [place] [facility] BMI 2021-08-24 14:24:00 35.67 kg/m2 [facility] [place] [facility] Oxygen saturation in 2021-06-07 15:30:00 96 /min [facility] Arterial blood by [facility] [place] Pulse oximetry Branch Body temperature 2021-06-07 14:20:30 37.44 [facility] Procedures Procedure Date / Time Performed Performing Clinician Sour e CONSENT/REFUSAL FOR 2022-01-11 17:10:16 Doctor Unassigned, No [facility] [place] DIAGNOSIS AND Name Medical Branch TREATMENT CONSENT/REFUSAL FOR 2022-01-11 17:10:16 Doctor Unassigned, No [facility] [place] DIAGNOSIS AND Name Medical Branch TREATMENT Encounters Start End Encounter Admission Attending Care Care Encounter Source Date/Time Date/Time Type Type Clinicians Facility Department ID 2020-12-13 Emergency [facility] [id number] Univers 10:09:54 ity of [facility] 2020-12-11 Emergency [facility] [id number] Univers 04:02:45 ity [facility] 2022-01-11 2022-01-11 Outpatient R UNA HESTER [facility] [id number] Univers 11:00:00 12:39:46 UNA HESTER dl [facility] 2022-01-11 2022-01-11 Orders Doctor 1.2.840.5 [id number] Univers 00:00:00 00:00:00 Only Unassigned, 00688.1.1 ity of [place] 3.104.2.7 [place] .3.350720 Medica l .8 [place] 2022-01-11 2022-01-11 Travel 1.2.840.1 1.2.964.679 [id number] Univers 00:00:00 00:00:00 69585.1.1 350.1.13.10 ity of 3.104.2.7 4.2.7.3.698 [place] .3.189649 084.8 Medica l .8 [place] 2021-11-24 2021-11-24 Outpatient R SAAVEDRA, [facility] [id number] Univers 09:30:00 09:30:00 IGOR wesley o [facility] 2021-11-16 2021-11-16 Outpatient R UNA HESTER [facility] [id number] Univers 11:00:00 11:00:[address] [facility] [place] [place] 2021-10-26 2021-10-26 Outpatient R SELF, [facility] [id number] Univers 08:00:00 08:00:00 DERRELL martinez [facility] 2021-10-20 2021-10-20 Outpatient R SAAVEDRA, [facility] [id number] Univers 10:00:00 10:00:00 IGOR wesley o juan [facility] 2021-10-03 2021-10-03 Outpatient R JENNIFER [facility] [id number] Univers 14:30:00 14:30:00 REX wesley [facility] 2021-09-21 2021-09-21 Outpatient R SELF, [facility] [id number] Univers 09:30:00 09:30:00 DERRELL walters [facility] 2021-08-24 2021-08-24 Outpatient R SELF, [facility] [id number] Univers 09:30:00 10:41:34 DERRELL walters [facility] 2021-08-24 2021-08-24 Travel 1.2.840.1 1.2.234.956 [id number] Univers 00:00:00 00:00:00 64368.1.1 350.1.13.10 ity of 3.104.2.7 4.2.7.3.698 [place] .3.141248 084.8 Medica l .8 [place] 2021-07-25 2021-07-25 Outpatient R SELF, [facility] [id number] Univers 09:00:00 09:00:00 DERRELL walters [facility] 2021-06-22 2021-06-22 Outpatient R UNA HESTER [facility] [id number] Univers 11:15:00 12:18:[address] [facility] [place] [place] 2021-06-22 2021-06-22 Outpatient R UNA HESTER [facility] [id number] Univers 11:15:00 11:15:[address] [facility] [place] 2021-06-22 2021-06-22 Travel 1.2.840.1 1.2.097.101 [id number] Univers 00:00:00 00:00:00 93648.1.1 350.1.13.10 ity of 3.104.2.7 4.2.7.3.698 [place] .3.290198 084.8 Medica l .8 [place] 2021-06-20 2021-06-20 Outpatient R SELF, [facility] [id number] Univers 11:15:00 11:15:00 DERRELL walters [facility] 2021-06-20 2021-06-20 Outpatient R SELF, [facility] [id number] Univers 11:15:00 11:15:00 DERRELL walters [facility] 2021-06-08 2021-06-08 Outpatient R HILARY MOOER [facility] [id number] Univers 09:20:00 09:20:00 HILARY MOORE ity of [facility] 2021-06-08 2021-06-08 Patient Saavedra, 1.2.840.2 [id number] Univers 00:00:00 00:00:00 Secure Msg Igor 30202.1.1 ity of [place] 3.104.2.7 [place] .3.600544 Medica l .8 [place] 2021-06-07 2021-06-07 Emergency X [place], [facility] ERT [id number] Univers 09:13:00 10:50:00 LULY wesley of [facility] 2021-06-07 2021-06-07 [facility] 1.2.033.723 [id number] Univers 09:13:00 10:50:00 Luly [place] 350.1.13.10 i ty of [place] 4.2.7.2.686 [facility] [id number] [facility] 084 [place] 2021-06-07 2021-06-07 Emergency Ny, 1.2.840.9 [id number] Univers 09:13:00 10:50:00 Luly 55586.1.1 ity of 3.104.2.7 [place] .3.291312 Medica l .8 [place] 2021-06-07 2021-06-07 Outpatient R SAAVEDRA, [facility] [id number] Univers 00:00:00 00:00:00 IGOR wesley o f [facility] 2021-06-07 2021-06-07 Orders Doctor MOO 1.2.840.114 [id number] Univers 00:00:00 00:00:00 Only Unassigned, QUITA 350.1.13.10 ity of [place] [facility] 4.2.7.2.686 [facility] [id number] [facility] 009 Branch 2021-06-07 2021-06-07 Travel 1.2.840.1 1.2.481.199 [id number] Univers 00:00:00 00:00:00 07974.1.1 350.1.13.10 ity of 3.104.2.7 4.2.7.3.698 [place] .3.149725 084.8 Medica l .8 [place] 2021-06-07 2021-06-07 Orders Doctor 1.2.840.2 [id number] Univers 00:00:00 00:00:00 Only Unassigned, 20315.1.1 ity of [place] 3.104.2.7 [place] .3.813933 Medica l .8 Branch 2021-06-03 2021-06-03 Travel 1.2.840.1 1.2.891.298 [id number] Univers 00:00:00 00:00:00 70483.1.1 350.1.13.10 ity of 3.104.2.7 4.2.7.3.698 [place] .3.509035 084.8 Medica l .8 [place] 2021-05-27 2021-05-27 Outpatient R SAAVEDRA, [facility] [id number] Univers 00:00:00 00:00:00 IGOR walters [facility] 2021-05-27 2021-05-27 Outpatient R SAAVEDRA, [facility] [id number] Univers 00:00:00 00:00:00 IGOR walters [facility] 2021-05-25 2021-05-25 Patient Doctor 1.2.840.7 [id number] Univers 00:00:00 00:00:00 Secure Msg Unassigned, 48966.1.1 ity of [place] 3.104.2.7 [place] .3.629517 Medica l .8 [place] 2021-05-25 2021-05-25 Patient Doctor 1.2.840.3 [id number] Univers 00:00:00 00:00:00 Secure Msg Unassigned, 56794.1.1 ity of [place] 3.104.2.7 [place] .3.425944 Medica l .8 [place] 2021-05-20 2021-05-20 Telephone Jones 1.2.840.9 [id number] Univers 00:00:00 00:00:00 Best, 90839.1.1 ity of [place] 3.104.2.7 [place] .3.230742 Medica l .8 Branch 2021-05-20 2021-05-20 Telephone Jones 1.2.840.2 [id number] Univers 00:00:00 00:00:00 Best, 05506.1.1 ity of [place] 3.104.2.7 [place] .3.477479 Medica l .8 Branch 2021-05-18 2021-05-18 Travel 1.2.840.1 1.2.987.251 [id number] Univers 00:00:00 00:00:00 05962.1.1 350.1.13.10 ity of 3.104.2.7 4.2.7.3.698 [place] .3.132980 084.8 Medica l .8 Branch 2021-05-18 2021-05-18 Travel 1.2.840.1 1.2.089.920 [id number] [facility] 00:00:00 00:00:00 15464.1.1 350.1.13.10 ity of 3.104.2.7 4.2.7.3.698 [place] .3.649353 084.8 Medica l .8 [place] 2021-05-17 2021-05-17 Laboratory Tech Pcp-Lab [facility] 1.2.840.114 [id number] Univers 13:15:00 13:30:00 Visit Igor Saavedra PRIMARY 350.1.13.1 0 ity of [place] 4[place]2.7.2.686 [place] [id number] Nh dical 366 [place] 2021-05-17 2021-05-17 Laboratory Tech Igor Saavedra 1.2.840.1 1 [id number] Univers 13:15:00 13:30:00 Visit Pcp-Lab 50019.1.1 ity of 3.104.2.7 [place] .3.009611 Medica l .8 [place] 2021-05-17 2021-05-17 Laboratory Tech Igor Saavedra 1.2.840.1 1 [id number] Univers 13:15:00 13:30:00 Visit Pcp-Lab 89711.1.1 ity of 3.104.2.7 [place] .3.131216 Medica l .8 [place] 2021-05-17 2021-05-17 Outpatient R [facility] [id number] Univers 09:00:00 10:25:05 IGOR bricedl [facility] 2021-05-17 2021-05-17 Office SaavedraEtta reinaIgorimelda [place] 1.2.840.1 [id number] Univers 09:00:00 10:25:05 Visit Deonte Joel 89811.1.1 ity of 3.104.2.7 [place] .3.666822 Medica l .8 [place] 2021-05-17 2021-05-17 Outpatient R [facility] [id number] Univers 09:00:00 10:25:05 IGOR wesley [facility] 2021-05-17 2021-05-17 Outpatient R [facility] [id number] Univers 09:30:00 09:30:00 [facility] 2021-05-[facility] 2021-05-17 Travel 1.2.840.1 1.2.947.364 [id number] Univers 00:00:00 00:00:00 72212.1.1 350.1.13.10 ity of 3.104.2.7 4.2.7.3.698 [place] .3.843875 084.8 Medica l .8 [place] 2021-05-17 2021-05-17 Travel 1.2.840.1 1.2.477.804 [id number] Univers 00:00:00 00:00:00 03478.1.1 350.1.13.10 ity of 3.104.2.7 4.2.7.3.698 [place] .3.631337 084.8 Medica l .8 [place] 2021-04-26 2021-04-26 Outpatient R [facility] [id number] Univers 09:00:00 09:00:00 ity [facility] 2021-04-26 2021-04-26 Outpatient R WENDY [facility] [id number] Univers 09:00:00 09:00:00 [facility] 2021-04-20 Outpatient R KACIESUKHJINDERUNA [facility] [id number] Univers 08:45:00 08:45:[address] [facility] [place] [place] 2021-04-11 2021-04-11 Outpatient SALLY FIGUEROA [facility] [id number] Univers 08:40:00 08:40:[address] [facility] [place] [place] 2021-04-11 2021-04-11 Outpatient SALLY FIGUEROA [facility] [id number] Univers 08:40:00 08:40:[address] [facility] [place] [place] 2021-03-21 2021-03-21 Outpatient SALLY FIGUEROA [facility] [id number] Univers 08:00:00 08:00:[address] [facility] [place] [place] 2021-03-17 2021-03-17 Patient Doctor 1.2.840.9 [id number] Univers 00:00:00 00:00:00 Secure Msg Unassigned, 90859.1.1 ity of [place] 3.104.2.7 [place] .3.397717 Medica l .8 [place] 2021-03-17 2021-03-17 Patient Doctor 1.2.840.2 [id number] Univers 00:00:00 00:00:00 Secure Msg Unassigned, 72269.1.1 ity of [place] 3.104.2.7 [place] .3.569864 Medica l .8 [place] 2021-03-17 2021-03-17 Patient Doctor 1.2.840.6 [id number] Univers 00:00:00 00:00:00 Secure Msg Unassigned, 10689.1.1 ity of [place] 3.104.2.7 [place] .3.563182 Medica l .8 [place] 2021-03-16 2021-03-16 Laboratory Tech [place] 1.2.840.1 [id number] Univers 13:15:00 13:30:00 Visit Pcp-Lab 17633.1.1 ity of 3.104.2.7 [place] .3.184983 Medica l .8 [place] 2021-03-16 2021-03-16 Laboratory Tech [place] 1.2.840.1 0 [id number] Univers 13:15:00 13:30:00 Visit Pcp-Lab 12711.1.1 ity of 3.104.2.7 [place] .3.155420 Medica l .8 [place] 2021-03-16 2021-03-16 Outpatient Tonya LOCKWOOD [facility] [id number] Univers 13:15:00 13:15:[address] [facility] [place] [place] 2021-03-16 2021-03-16 [facility] [id number] Univers 12:00:00 [facility]09:[facility] 2021-03-16 Out[facility] [id number] Univers 12:00:00 12:09:51 [facility] 2021-03-16 2021-03-16 Out[facility] [id number] Univers 12:00:00 12:00:[address] [facility] [place] [place] 2021-03-16 2021-03-16 Travel 1.2.840.1 1.2.176.565 [id number] Univers 00:00:00 00:00:00 12088.1.1 350.1.13.10 ity of 3.104.2.7 4.2.7.3.698 [place] .3.349701 084.8 Medica l .8 [place] 2021-03-16 2021-03-16 Travel 1.2.840.1 1.2.195.143 [id number] Univers 00:00:00 00:00:00 89939.1.1 350.1.13.10 ity of 3.104.2.7 4.2.7.3.698 [place] .3.966770 084.8 Medica l .8 [place] 2021-03-11 2021-03-11 [facility] [id number] Univers 09:44:00 13:06:00 HALIMA ity of [facility] 2021-03-11 2021-03-11 Emergency Geeta, 1.2.840.9 [id number] Univers 09:44:00 13:06:00 Halima Cates 37136.1.1 ity of 3.104.2.7 [place] .3.179389 Medica l .8 [place] 2021-03-11 2021-03-11 Emergency [facility] [id number] Univers 09:44:00 13:06:00 HALIMA ity of [facility] 2021-03-11 2021-03-11 Emergency Geeta, 1.2.840.1 [id number] Univers 09:44:00 13:06:00 Halima Cates 94325.1.1 ity of 3.104.2.7 [place] .3.231088 Medica l .8 [place] 2021-03-11 2021-03-11 [facility] [id number] Univers 09:44:00 13:06:00 HALIMA ity of [facility] 2021-03-11 2021-03-11 [facility] [id number] Univers 09:44:00 09:44:00 HALIMA ity of [facility] 2021-03-11 2021-03-11 Travel 1.2.840.1 1.2.920.416 [id number] Univers 00:00:00 00:00:00 57178.1.1 350.1.13.10 ity of 3.104.2.7 4.[place].3.698 [place] .3.451894 084.8 Medica l .8 [place] 2021-03-11 2021-03-11 Travel 1.2.840.1 1.2.676.762 [id number] Univers 00:00:00 00:00:00 58898.1.1 350.1.13.10 ity of 3.104.2.7 4.[place]7.3.698 [place] .3.197776 084.8 Medica l .8 [place] 2021-03-08 2021-03-08 Laboratory Tech [place] 1.2.840.1 [id number] Univers 15:00:00 15:15:00 Visit [facility]-Lab 07417.1.1 ity of 3.104.2.7 [place] .3.123717 Medica l .8 [place] 2021-03-08 2021-03-08 Laboratory Tech [place] 1.2.840.1 1020 [id number] Univers 15:00:00 15:15:00 Visit Pcp-Lab 30507.1.1 ity of 3.104.2.7 [place] .3.719751 Medica l .8 [place] 2021-03-08 2021-03-08 Outpatient R FABIÁN, [facility] [id number] Univers 15:00:00 15:00:00 RALEIGH bricey [facility] 2021-01-31 2021-01-31 Outpatient R SELF, [facility] [id number] Univers 10:15:00 10:55:06 DERRELL wesley [facility] 2020-12-29 2020-12-29 Outpatient R SELF, [facility] [id number] Univers 08:00:00 08:41:00 DERRELL wesley [facility] 2020-12-29 2020-12-29 Outpatient R SELF, [facility] [id number] Univers 08:00:00 08:41:00 DERRELL wesley [facility] 2020-12-29 2020-12-29 Travel 1.2.840.1 [id number] [id number] Univers 00:00:00 00:00:00 91078.1.1 350.1.13.10 ity of 3.104.2.7 [place].3.698 [place] .3.717314 084.8 Medica l .8 [place] 2020-12-29 2020-12-29 Travel 1.2.840.1 1.2.299.252 [id number] Univers 00:00:00 00:00:00 02073.1.1 350.1.13.10 ity of 3.104.2.7 [place].698 [place]3.866837 084.8 Medica l .8 [place] 2020-12-22 2020-12-22 Outpatient R SELF, [facility] [id number] Univers 09:30:00 09:30:00 DERRELL wesley o [facility] 2020-12-22 2020-12-22 Outpatient R SELF, [facility] [id number] Univers 09:30:00 09:30:00 DERRELL walters [facility] 2020-11-10 2020-11-10 Outpatient R SHE, [facility] [id number] Univers 09:30:00 09:30:00 [facility] 2020-11-10 Orders Doctor 1.2.840.9 [id number] Univers 00:00:00 00:00:00 Only Unassigned, 84381.1.1 ity of [place] 3.104.2.7 [place] .3.131665 Medica l .8 [place] 2020-11-10 2020-11-10 Travel 1.2.840.1 1.2.480.285 [id number] Univers 00:00:00 00:00:00 42301.1.1 350.1.13.10 ity of 3.104.2.7 [place].3.698 [place] .3.857510 084.8 Medica l .8 [place] 2020-10-11 2020-10-11 Outpatient R SELF, [facility] [id number] Univers 08:00:00 08:00:00 DERRELL walters [facility] 2020-10-11 2020-10-11 Travel 1.2.840.1 1.2.695.375 [id number] Univers 00:00:00 00:00:00 72861.1.1 350.1.13.10 ity of 3.104.2.7 [place].3.698 [place] .3.248693 084.8 Medica l .8 [place] 2020-09-13 2020-09-13 Outpatient R SELF, [facility] [id number] Univers 08:00:00 08:00:00 DERRELL ity o f [facility] 2020-09-13 2020-09-13 Travel 1.2.840.1 1.2.921.565 [id number] Univers 00:00:00 00:00:00 06033.1.1 350.1.13.10 ity of 3.104.2.7 4.[place].3.698 [place] .3.026247 084.8 Medica l .8 [place] 2020-09-02 2020-09-02 Emergency Rose, [facility] 1.2.840.114 [id number] 16:12:00 20:21:00 Patti Gillespie 350.1.13.10 [place] 4.2.7.2.686 [place] [id number] 2020-09-02 2020-09-02 Emergency Rose, 1.2.840.4 [id number] Univers 16:12:00 20:21:00 Patti 71395.1.1 ity of 3.104.2.7 [place] .3.132508 Medica l .8 [place] 2020-09-02 2020-09-02 Orders Doctor 1.2.840.8 [id number] Univers 00:00:00 00:00:00 Only Unassigned, 54331.1.1 ity of [place] 3.104.2.7 [place] .3.129132 Medica l .8 [place] 2020-09-02 2020-09-02 Orders Doctor MOO 1.2.840.114 [id number] 00:00:00 00:00:00 Only Unassigned, QUITA 350.1.13.10 [place] [facility] 4.2.7.2.686 [id number] 2020-09-02 2020-09-02 Travel 1.2.840.1 1.2.506.504 [id number] Univers 00:00:00 00:00:00 31967.1.1 350.1.13.10 it[place] 3.104.2.7 4.[place].3.698 [place] .3.971894 084.8 Medica l .8 [place] 2020-08-25 2020-08-25 Outpatient R [facility] [id number] Univers 09:15:00 09:15:[address] [facility] [place] [place] 2020-08-09 2020-08-09 Outpatient R SELF, [facility] [id number] Univers 08:45:00 08:45:00 DERRELL itdl o [facility] 2020-06-28 2020-06-28 Outpatient R FABIÁN, [facility] [id number] Univers 13:45:00 13:45:00 [facility] 2020-06-21 2020-06-21 Outpatient R SELF, [facility] [id number] Univers 15:15:00 15:15:00 DERRELL ity o [facility] 2020-06-07 2020-06-07 Outpatient R SELF, [facility] [id number] Univers 08:45:00 08:45:00 DERRELL ity o [facility] 2020-05-25 2020-05-25 Outpatient R MICHELLE, [facility] [id number] Univers 08:30:00 08:30:[address] [facility] [place] [place] 2020-03-15 2020-03-15 Outpatient R FABIÁN, [facility] [id number] Univers 13:00:00 13:00:00 [facility] 2020-03-08 2020-03-08 Outpatient R SELF, [facility] [id number] Univers 13:00:00 13:00:00 DERRELL ity o [facility] 2020-02-16 2020-02-16 Outpatient R SELF, [facility] [id number] Univers 11:00:00 11:00:00 DERRELL ity o f [facility] 2020-01-27 2020-01-27 Outpatient R SELF, [facility] [id number] Univers 11:45:00 11:45:00 DERRELL ity o [facility] 2020-01-19 2020-01-19 Outpatient R LARISSA, [facility] [id number] Univers 08:00:00 08:00:00 DERRELL martinez [facility] 2019-12-22 2019-12-22 Outpatient R LARISSA, [facility] [id number] Univers 08:45:00 08:45:00 DERRELL martinez [facility] 2019-12-05 2019-12-05 Outpatient R ALEISHA, [facility] [id number] Univers 10:45:00 10:45:[address] [facility] [place] [place] 2019-10-23 2019-10-23 Outpatient R DELGADO, [facility] [id number] Univers 09:15:00 09:15:[address] [facility] [place] [place] 2019-10-15 2019-10-15 Outpatient R SHE, [facility] [id number] Univers 11:30:00 11:30:[address] [facility] [place] [place] 2019-10-01 2019-10-01 Outpatient R SHE, [facility] [id number] Univers 14:30:00 14:30:[address] [facility] [place] [place] 2019-09-01 2019-09-01 Outpatient R LARISSA, [facility] [id number] Univers 08:45:00 08:45:00 DERRELL martinez [facility] 2019-08-06 2019-08-06 Outpatient Tonya SHALOM, [facility] [id number] Univers 13:00:00 13:00:[address] [facility] [place] [place] Results Test Description Test Time Test Comments [...] VERY HIGH...... ...>/= 190 mg/dL Comments to Table Keeper: ADD TO AM LABSLIPID PROFILE (CORONARY RISK)2018-07-20 [...] MG/DL 0-99 code = LDL) Comments to Table Keeper: ADD TO AM LABSPROTHROMBIN [id number] 06:24:00 Test Item Value Reference Range Interpretation [...] - 3.0 2. Prophylaxis, deep venous thrombosis, hi p surgery, treatm ent for deep venous thrombosis or pulmonary prevention of systemic emboli sm in patients wit h valvular heart disease, atrial fibrillation, tissue heart va lve, or acute myocar dial infarction. 2.0 - 3.0 3. Life Insurance Specialist al prosthesis hear t valves, recurre nt systemic emboli sm. 3.0 - 4.5 Comments to Table Keeper: NURSE WILL BRING SPECIMEN TO LABPTT ACTIVATED 2018-07-20 06:24:00 Test Item Value Reference Range Interpretation Comments PTT ACTIVATED (test code = APTT) 29.3 SECONDS 22.0-33.0 N Comments to Table Keeper: NURSE WILL BRING SPECIMEN TO LABBASIC METABOLIC [...] 9.6 MG/DL 8.4-10.2 N CA) Comments to Table Keeper: NURSE WILL BRING SPECIMEN TO LAB Comments to Table Keeper: NURSE WILL BRING SPECIMEN TO [id number] 06:13:00 Test Item Value Reference Range Interpretation Comments MAGNESIUM (test code = MAG) 2.2 MG/DL 1.6-2.3 N Comments to Table Keeper: NURSE WILL BRING SPECIMEN TO LAB Comments to Table Keeper: NURSE WILL BRING SPECIMEN TO LABCBC W/AUTO [id number] 06:02:00 Test Item Value Reference Range Interpretation [...]
[2022-01-16 11:35] LABS: SARS-COV-2 RT PCR NEGATIVE (NEGATIVE)
--- NOTE | 2022-01-16 13:15 | RAD REPORT ---
EXAM DESCRIPTION: RAD - Chest Single View - 01/16/2022 11:55 am CLINICAL HISTORY: Cough COMPARISON: Portable 07/21/2021 TECHNIQUE: AP portable chest image was obtained 01/16/2022 11:55 am . FINDINGS: Lung volumes are low. No peripheral mass or consolidation. No failure or volume overload s uspected. The interstitial pattern is similar or less prominent than the comparison study. Heart and vasculature are normal. No measurable pleural effusion and no pneumothorax. No acute bony abnormality seen. No acute aortic findings suspected. IMPRESSION: No acute cardiopulmonary process. No significant change from comparison study.
--- NOTE | 2022-01-16 13:23 | ER ---
Nurse's Notes [facility] Name: Shivani Lagunas Age: 46 yrs Sex: Female : 1975 Arrival Date: 01/16/2022 Time: 10:12 Bed IW1 Private MD: Diagnosis: Acute upper respiratory infection, unspecified Presentation: 01/16 10:36 Chief complaint: Patient states: Sore throat, cough, runny nose, fever, chills body jl7 aches x 4 days. Coronavirus screen: Client presents with at least one sign or symptom that may indicate coronavirus-19. Ebola Screen: No symptoms or risks identified at this time. Initial Sepsis Screen: Does the patient meet any 2 criteria? No. Patient's initial sepsis screen is negative. Does the patient have a suspected source of infection? No. Patient's initial sepsis screen is negative. Risk Assessment: Do you want to hurt yourself or someone else? Patient reports no desire to harm self or others. Onset of symptoms was January 12, 2022. 10:36 Method Of Arrival: Ambulatory jl7 10:36 Acuity: ALICIA 4 jl7 Triage Assessment: 10:37 General: Appears in no apparent distress. uncomfortable, Behavior is calm, cooperative, jl7 appropriate for age. Pain: Complains of pain in sore throat. EENT: Throat is clear. 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 jl7 Historical: - Allergies: 10:37 Sulfa (Sulfonamide Antibiotics); jl7 - Home Meds: 10:37 allopurinol 100 mg Oral tab 1 tab once daily [Active]; alprazolam 0.5 mg Oral tab jl7 [Active]; atorvastatin 10 mg Oral tab 1 tab once daily [Active]; clonazepam 2 mg Oral tab nightly [Active]; duloxetine 90 mg Oral cpDR 1 cap once daily [Active]; lithium carbonate 600 mg Oral cap daily [Active]; losartan 100 mg Oral tab 1 tab once daily [Active]; propranolol 80 mg Oral tab 1 tab 2 times per day [Active]; spironolactone 25 mg Oral tab 1 tab once daily [Active]; zolpidem 10 mg Oral tab once daily [Active]; 10:41 lamotrigine oral [Active]; jl7 - PMHx: 10:37 Anxiety; Arrythmia; Bipolar disorder; depression, anxiety, insomnia; fatty liver; Gout; jl7 High Cholesterol; Hypertension; Schizophrenia; - PSHx: 10:37 section; Cholecystectomy; jl7 - Immunization history:: Client reports having NOT received the Covid vaccine. - Social history:: Smoking status: Patient/guardian denies using tobacco. Screenin:27 Abuse screen: Denies threats or abuse. Denies injuries from another. Nutritional ss screening: No deficits noted. Tuberculosis screening: Never had TB. Fall Risk Mental Status- Oriented to own ability (0 pts). Assessment: 13:27 General: Appears in no apparent distress. comfortable, Behavior is calm, cooperative. ss Neuro: Level of Consciousness is awake, alert, obeys commands, Oriented to person, place, time, situation, Animal Pathologist are equal bilaterally. Cardiovascular: Capillary refill < 3 seconds is brisk in bilateral fingers. Respiratory: Airway is patent Respiratory effort is even, unlabored. Derm: Skin is intact, is healthy with good turgor, Skin is dry, Skin is pink, warm \T\ dry. normal. Musculoskeletal: Circulation, motion, and sensation intact. Range of motion: intact in all extremities. Vital Signs: 10:36 Pulse 78; Resp 15; Temp 98.1; Pulse Ox 99% ; jl7 ED Course: 10:12 Patient arrived in ED. as 10:13 [facility]ant[facility] Per[facility]-C [facility] kb 10:13 Alexander Kahn MD is Attending Physician. kb 10:37 Triage completed. jl7 10:37 Arm band placed on right wrist. jl7 10:44 Flu and/or RSV swab sent to lab. Strep swab sent to lab. jl7 11:57 Chest Single View XRAY In Process Unspecified. EDMS 13:27 Yvonne Downs, RN is Primary Nurse. ss 13:27 Patient has correct armband on for positive identification. Bed in low position. ss 13:27 No provider procedures requiring assistance completed. Patient did not have IV access ss during this emergency room visit. Administered Medications: No medications were administered Medication: 13:27 VIS not applicable for this client. ss Outcome: 13:23 Discharge ordered by . kb 13:30 Discharged to home ambulatory. ss 13:30 Condition: good 13:30 Discharge instructions given to patient, Instructed on discharge instructions, follow up and referral plans. Demonstrated understanding of instructions, follow-up care. 13:30 Patient left the ED. ss Signatures: Dispatcher [employer] Shantelle Dominguez, ABAD-Dk MELGOZA-Sally Gomes [place], RN RN ss Meche Luciano RN RN jl7
--- NOTE | 2022-01-16 13:23 | EDPHYS ---
Physician Documentation [facility] Name: Shivani Lagunas Age: 46 yrs Sex: Female : 1975 Arrival Date: 01/16/2022 Time: 10:12 Bed IW1 Private MD: ED Physician Alexander Kahn HPI: 01/16 13:57 This 46 yrs old Female presents to ER via Ambulatory with complaints of Sore kb Throat, Cough, Headache, Shortness Of Breath, Chest Tightness. 13:57 The patient has not recently seen a physician. kb 13:57 The patient or guardian reports cough, that is intermittent, described as moderate, kb difficulty breathing, flu symptoms, low-grade fever, myalgias. Onset: The symptoms/episode began/occurred 4 day(s) ago. Severity of symptoms: At their worst the symptoms were moderate, in the emergency department the symptoms are unchanged. Modifying factors: The symptoms are alleviated by nothing, the symptoms are aggravated by nothing. Associated signs and symptoms: Pertinent positives: fever, rhinorrhea, sore throat, Pertinent negatives: chest pain, diarrhea, ear ache, nausea, vomiting. The patient has not experienced similar symptoms in the past. Pt reports cough, congestion, sore throat, fever, headache and shortness of breath for 4 days. 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 01/01/20227 Historical: - Allergies: 10:37 Sulfa (Sulfonamide Antibiotics); jl7 - Home Meds: 10:37 allopurinol 100 mg Oral tab 1 tab once daily [Active]; alprazolam 0.5 mg Oral tab jl7 [Active]; atorvastatin 10 mg Oral tab 1 tab once daily [Active]; clonazepam 2 mg Oral tab nightly [Active]; duloxetine 90 mg Oral cpDR 1 cap once daily [Active]; lithium carbonate 600 mg Oral cap daily [Active]; losartan 100 mg Oral tab 1 tab once daily [Active]; propranolol 80 mg Oral tab 1 tab 2 times per day [Active]; spironolactone 25 mg Oral tab 1 tab once daily [Active]; zolpidem 10 mg Oral tab once daily [Active]; 10:41 lamotrigine oral [Active]; jl7 - PMHx: 10:37 Anxiety; Arrythmia; Bipolar disorder; depression, anxiety, insomnia; fatty liver; Gout; jl7 High Cholesterol; Hypertension; Schizophrenia; - PSHx: 10:37 section; Cholecystectomy; jl7 - Immunization history:: Client reports having NOT received the Covid vaccine. - Social history:: Smoking status: Patient/guardian denies using tobacco. ROS: 13:55 Abdomen/GI: Negative for abdominal pain, nausea, vomiting, diarrhea, and constipation. kb 13:55 Constitutional: Positive for body aches, chills, fatigue, fever, malaise. 13:55 ENT: Positive for rhinorrhea, sinus congestion, sore throat. 13:55 Respiratory: Positive for cough, shortness of breath, Negative for dyspnea on exertion, hemoptysis, orthopnea, pleurisy, sputum production, wheezing. 13:55 Neuro: Positive for headache. 13:55 All other systems are negative. Exam: 13:55 Constitutional: This is a well developed, well nourished patient who is awake, alert, kb and in no acute distress. Head/Face: Normocephalic, atraumatic. ENT: Moist Mucous membranes Cardiovascular: Regular rate and rhythm with a normal S1 and S2. No gallops, murmurs, or rubs. No pulse deficits. Respiratory: Respirations even and unlabored. No increased work of breathing. Talking in full sentences Abdomen/GI: Soft, non-tender. No distention Skin: Warm, dry with normal turgor. Normal color. MS/ Extremity: Pulses equal, no cyanosis. Neurovascular intact. Full, normal range of motion. Neuro: Awake and alert, GCS 15, oriented to person, place, time, and situation. Moves all extremities. Normal gait. Psych: Awake, alert, with orientation to person, place and time. Behavior, mood, and affect are within normal limits. Vital Signs: 10:36 Pulse 78; Resp 15; Temp 98.1; Pulse Ox 99% ; jl7 MDM: 10:37 Patient medically screened. kb 13:22 Data reviewed: vital signs, nurses notes. Data interpreted: Pulse oximetry: on room air kb is 99 %. Interpretation: normal. Counseling: I had a detailed discussion with the patient and/or guardian regarding: the historical points, exam findings, and any diagnostic results supporting the discharge/admit diagnosis, lab results, radiology results, the need for outpatient follow up, a family practitioner, to return to the emergency department if symptoms worsen or persist or if there are any questions or concerns that arise at home. 01/16 10:39 Order name: COVID-19/FLU A+B; Complete Time: 11:56 kb 01/16 10:39 Order name: Strep; Complete Time: 11:24 kb 01/16 10:39 Order name: Chest Single View XRAY; Complete Time: 13:16 kb 01/16 11:25 Order name: Throat Culture EDMS Administered Medications: No medications were administered Disposition: 16:18 Co-signature as Attending Physician, Alexander Kahn MD I agree with the assessment and kdr plan of care. Disposition Summary: 01/16/22 13:23 Discharge Ordered Location: Home kb Condition: Stable kb Diagnosis - Acute upper respiratory infection, unspecified kb Followup: kb - With: Emergency Department - When: As needed - Reason: Worsening of condition Followup: kb - With: Private Physician - When: 2 - 3 days - Reason: Recheck today's complaints, Continuance of care, Re-evaluation by your physician Discharge Instructions: - Discharge Summary Sheet kb - Upper Respiratory Infection, Adult, [id number] kb - Viral Respiratory Infection, Kpeo-[id number]-Rkik kb Forms: - Medication Reconciliation Form kb - Thank You Letter kb - Antibiotic Education kb - Prescription Opioid Use kb - Work release form ss Signatures: Dispatcher [employer] EDMS Shantelle Peraza, COLLEGE INSTRUCTOR-C COLLEGE INSTRUCTOR-Alexander Zavaleta MD MD kdr Leal, [place], RN RN jl7
[2022-01-16 13:59] VITALS: TEMP 98.1; O2SAT 99
== END 2022-01-16 13:30 | disposition home or self-care (01) ==
LOC: ER 10:10
DX: J06.9 Acute upper respiratory infection, unspecified (principal); Z20.822 Contact with and (suspected) exposure to COVID-19; Z88.2 Allergy status to sulfonamides
CPT/HCPCS: 0240U; 71045; 87070; 87081; 99283

== ENCOUNTER 2022-01-29 18:00 | Emergency (ER) | payer SELFPAY ==
--- OUTSIDE RECORDS SUMMARY | 2022-01-29 18:05 | XMS REPORT | Continuity of Care Document ---
:1975 Author Organization [facility] t Address [address] [place] [address] [address]. [address] [place] [address] Care Team Providers Name Role Phone Pcp, Patient Does Not Have A Primary Care Physician +[id number] UNA HESTER Attending Clinician Unavailable UNA HESTER Attending Clinician Unavailable Doctor Unassigned, Roby Attending Clinician Unavailable IGOR SAAVEDRA Attending Clinician [...] Policy Number Effective Date Expiration Date S [facility] MEDICAID SSI PENDING 2021 PENDING 00:00:00 Problems Condition Condition Condition Status Onset Resolution Last Treating Co mments Source Name Details Category Date Date Treatment Clinician Date No known No known Disease Unive rs active active ity of problems problems [facility] Allergies, Adverse Reactions, Alerts Allergy Allergy [...] Source Exposure to 2022-01-01 2022-01-11 Not sure [facility] SARS-CoV-2 00:00:00 11:09:00 [facility] (event) [place] Tobacco use and 2021-08-24 2021-08-24 Smokeless tobacco Un iversity of exposure 00:00:00 00:00:00 non-user [facility] Sex Assigned At [birth year] [facility] 00:00:00 00:00:00 [facility] Smoking Status Start Date Stop Date Source Never smoked tobacco [facility] Medications Ordered Filled Start Stop Current Ordering Indication Dosage Frequency Signature Comments Components Source Medication Medication Date Date Medication? Clinician (SIG) Name Name traZODone 2021-02 Yes [id number] 50mg Take 1 U nivers 50 mg 1-30 tablet by ity of tablet 00:00: mouth at [place] 00 bedtime. Medical May cut Branch tablet in half. lamoTRIgine 2021-02 Yes [id number] 100mg Take 1 [facility] 100 mg 1-30 tablet by ity of tablet 00:00: mouth in [place] 00 the Medical morning Branch and 1 tablet in the evening. traZODone 2021-02 Yes [id number] 50mg Take 1 U nivers 50 mg 1-30 tablet by ity of tablet 00:00: mouth at [place] 00 bedtime. Medical May cut Branch tablet in half. lamoTRIgine 2021-02 Yes [id number] 100mg Take 1 [facility] 100 mg 1-30 tablet by ity of tablet 00:00: mouth in [place] 00 the Medical morning Branch and 1 tablet in the evening. traZODone 2021-02 Yes [id number] 50mg Take 1 U nivers 50 mg 1-30 tablet by ity of tablet 00:00: mouth at [place] 00 bedtime. Medical May cut Branch tablet in half. lamoTRIgine 2021-02 Yes [id number] 100mg Take 1 [facility] 100 mg 1-30 tablet by ity of tablet 00:00: mouth in [place] 00 the Medical morning Branch and 1 tablet in the evening. DULoxetine 2021-02 Yes [id number] 60mg Take 1 U nivers 60 mg 1-28 capsule by ity of capsule 00:00: mouth in [place] 00 the Medical morning Branch and 1 capsule in the evening. clonazePAM 2021-02 Yes [id number] Take 1 U nivers 1 mg tablet 1-28 tablet by ity of 00:00: mouth [place] 00 twice Medical daily as Branch needed for anxiety. DULoxetine 2021-02 Yes [id number] 60mg Take 1 U nivers 60 mg 1-28 capsule by ity of capsule 00:00: mouth in [place] 00 the Medical morning Branch and 1 capsule in the evening. clonazePAM 2021-02 Yes [id number] Take 1 U nivers 1 mg tablet 1-28 tablet by ity of 00:00: mouth [place] 00 twice Medical daily as Branch needed for anxiety. DULoxetine 2021-02 Yes [id number] 60mg Take 1 U nivers 60 mg 1-28 capsule by ity of capsule 00:00: mouth in [place] 00 the Medical morning Branch and 1 capsule in the evening. clonazePAM 2021-02 Yes [id number] Take 1 U nivers 1 mg tablet 1-28 tablet by ity of 00:00: mouth [place] 00 twice Medical daily as Branch needed for anxiety. DULoxetine 2021-02 Yes [id number] 60mg Take 1 U nivers 60 mg 1-28 capsule by ity of capsule 00:00: mouth in [place] 00 the Medical morning Branch and 1 capsule in the evening. clonazePAM 2021-02 Yes [id number] Take 1 U nivers 1 mg tablet 1-28 tablet by ity of 00:00: mouth [place] 00 twice Medical daily as Branch needed for anxiety. DULoxetine 2021-02 Yes [id number] 60mg Take 1 U nivers 60 mg 1-28 capsule by ity of capsule 00:00: mouth in [place] 00 the Medical morning Branch and 1 capsule in the evening. clonazePAM 2021-02 Yes [id number] Take 1 U nivers 1 mg tablet 1-28 tablet by ity of 00:00: mouth [place] 00 twice Medical daily as Branch needed for anxiety. traZODone 2021-02 Yes [id number] 50mg Take 1 U nivers 50 mg 1-22 tablet by ity of tablet 00:00: mouth at [place] [address] bedtime. Medical May cut Branch tablet in half. traZODone 2021-02 Yes [id number] 50mg Take 1 U nivers 50 mg 1-22 tablet by ity of tablet 00:00: mouth at [place] [address] bedtime. Medical May cut Branch tablet in half. traZODone 2021-02 Yes [id number] 50mg Take 1 U nivers 50 mg 1-22 tablet by ity of tablet 00:00: mouth at [place] [address] bedtime. Medical May cut Branch tablet in half. traZODone 2021-02- No [id number] 50mg Take 1 [facility] 50 mg 1-22 11-30 tablet by ity of tablet 00:00: 00:00 mouth at [place] 00 :00 bedtime. Medical May cut Branch tablet in half. traZODone 2021-02- No [id number] 50mg Take 1 [facility] 50 mg 1-22 11-30 tablet by ity of tablet 00:00: 00:00 mouth at [place] 00 :00 bedtime. Medical May cut Branch tablet in half. traZODone 2021-02- No [id number] 50mg Take 1 [facility] 50 mg 1-22 11-30 tablet by ity of tablet 00:00: 00:00 mouth at [place] 00 :00 bedtime. Medical May cut Branch tablet in half. DULoxetine 2022-1 Yes [id number] 60mg Take 1 U nivers 60 mg 0-25 capsule by ity of capsule 00:00: mouth in [place] 00 the Medical morning Branch and 1 capsule in the evening. DULoxetine 2021-02 Yes [id number] 60mg Take 1 [facility] nivers 60 mg 0-25 capsule by ity of capsule 00:00: mouth in [place] 00 the Medical morning Branch and 1 capsule in the evening. DULoxetine 2021-02 Yes [id number] 60mg Take 1 U nivers 60 mg 0-25 capsule by ity of capsule 00:00: mouth in [place] 00 the Medical morning Branch and 1 capsule in the evening. DULoxetine 2021-02- No [id number] 60mg Take 1 [facility] 60 mg 0-25 11-28 capsule by ity of capsule 00:00: 00:00 mouth in [place] 00 :00 the [facility] morning Branch and 1 capsule in the evening. DULoxetine 2021-02- No [id number] 60mg Take 1 [facility] 60 mg 0-25 11-28 capsule by ity of capsule 00:00: 00:00 mouth in [place] 00 :00 the [facility] morning Branch and 1 capsule in the evening. DULoxetine 2021-02- No [id number] 60mg Take 1 [facility] 60 mg 0-25 11-28 capsule by ity of capsule 00:00: 00:00 mouth in [place] 00 :00 the Medical morning Branch and 1 capsule in the evening. DULoxetine 2021-02- No [id number] 60mg Take 1 [facility] 60 mg 0-25 11-28 capsule by ity of capsule 00:00: 00:00 mouth in [place] 00 :00 the [facility] morning Branch and 1 capsule in the evening. clonazePAM 2021-02 Yes [id number] Take 1 U nivers 1 mg tablet 0-20 tablet by ity of 00:00: mouth [place] 00 twice Medical daily as Branch needed for anxiety. lithium 600 2021-02 Yes [id number] 600mg Take 1 [facility] mg capsule 0-20 capsule by ity of 00:00: mouth in [place] 00 the [facility] morning Branch and 1 capsule in the evening. lamoTRIgine 2021-02 Yes [id number] 50mg Take 2 [facility] 25 mg 0-20 tablets by ity of tablet 00:00: mouth in [place] 00 the [facility] morning Branch and 2 tablets in the evening. clonazePAM 2021-02 Yes [id number] Take 1 U nivers 1 mg tablet 0-20 tablet by ity of 00:00: mouth [place] [address] twice Medical daily as Branch needed for anxiety. lithium 600 2021-02 Yes [id number] 600mg Take 1 [facility] mg capsule 0-20 capsule by ity of 00:00: mouth in [place] [address] the [facility] morning Branch and 1 capsule in the evening. lamoTRIgine 2021-02 Yes [id number] 50mg Take 2 [facility] 25 mg 0-20 tablets by ity of tablet 00:00: mouth in [place] [address] the [facility] morning Branch and 2 tablets in the evening. clonazePAM 2021-02 Yes [id number] Take 1 U nivers 1 mg tablet 0-20 tablet by ity of 00:00: mouth [place] [address] twice Medical daily as Branch needed for anxiety. lithium 600 2021-02 Yes [id number] 600mg Take 1 [facility] mg capsule 0-20 capsule by ity of 00:00: mouth in [place] [address] the [facility] morning [place] and 1 capsule in the evening. lamoTRIgine 2021-02 Yes [id number] 50mg Take 2 [facility] 25 mg 0-20 tablets by ity of tablet 00:00: mouth in [place] [address] the [facility] morning [place] and 2 tablets in the evening. lithium 600 2021-02 Yes [id number] 600mg Take 1 [facility] mg capsule 0-20 capsule by ity of 00:00: mouth in [place] [address] the [facility] morning [place] and 1 capsule in the evening. lamoTRIgine 2021-02 Yes [id number] 50mg Take 2 [facility] 25 mg 0-20 tablets by ity of tablet 00:00: mouth in [place] [address] the [facility] morning [place] and 2 tablets in the evening. lithium 600 2021-02 Yes [id number] 600mg Take 1 [facility] mg capsule 0-20 capsule by ity of 00:00: mouth in [place] [address] the [facility] morning [place] and 1 capsule in the evening. lamoTRIgine 2021-02 Yes [id number] 50mg Take 2 [facility] 25 mg 0-20 tablets by ity of tablet 00:00: mouth in [place] [address] the [facility] morning [place] and 2 tablets in the evening. lithium 600 2021-02 Yes [id number] 600mg Take 1 [facility] mg capsule 0-20 capsule by ity of 00:00: mouth in [place] [address] the [facility] morning [place] and 1 capsule in the evening. lithium 600 2021-02 Yes [id number] 600mg Take 1 [facility] mg capsule 0-20 capsule by ity of 00:00: mouth in [place] 00 the Medical morning Branch and 1 capsule in the evening. lithium 600 2021-02 Yes [id number] 600mg Take 1 [facility] mg capsule 0-20 capsule by ity of 00:00: mouth in [place] 00 the Medical morning Branch and 1 capsule in the evening. lamoTRIgine 2021-02- No [id number] 50mg Take 2 [facility] 25 mg 0-20 11-30 tablets by ity of tablet 00:00: 00:00 mouth in [place] 00 :00 the Medical morning Branch and 2 tablets in the evening. lamoTRIgine 2021-02- No [id number] 50mg Take 2 [facility] 25 mg 0-20 11-30 tablets by ity of tablet 00:00: 00:00 mouth in [place] 00 :00 the Medical morning Branch and 2 tablets in the evening. lamoTRIgine 2021-02- No [id number] 50mg Take 2 [facility] 25 mg 0-20 11-30 tablets by ity of tablet 00:00: 00:00 mouth in [place] 00 :00 the Medical morning Branch and 2 tablets in the evening. clonazePAM 2021-02 No [id number] Take 1 [facility] 1 mg tablet 0-20 11-28 tablet by it y of 00:00: 00:00 mouth [place] 00 :00 twice Medical daily as Branch needed for anxiety. clonazePAM 2021-02 No [id number] Take 1 [facility] 1 mg tablet 0-20 11-28 tablet by it y of 00:00: 00:00 mouth [place] 00 :00 twice Medical daily as Branch needed for anxiety. clonazePAM 2021-02 No [id number] Take 1 Univers 1 mg tablet 0-20 11-28 tablet by it y of 00:00: 00:00 mouth [place] 00 :00 twice Medical daily as Branch needed for anxiety. clonazePAM 2021-02- No [id number] Take 1 [facility] 1 mg tablet 0-20 11-28 tablet by it y of 00:00: 00:00 mouth [place] 00 :00 twice Medical daily as Branch needed for anxiety. lamoTRIgine Yes [id number] 50mg Take 2 [facility] 25 mg 8-26 tablets by ity of tablet 00:00: mouth in [place] 00 the Medical morning Branch and 2 tablets in the evening. lamoTRIgine 2021- No [id number] 50mg Take 2 [facility] 25 mg 8-26 10-19 tablets by ity of tablet 00:00: 00:00 mouth in [place] 00 :00 the Medical morning Branch and 2 tablets in the evening. lamoTRIgine 2021-0 2021- No [id number] 50mg Take 2 [facility] 25 mg 8-26 10-19 tablets by ity of tablet 00:00: 00:00 mouth in [place] 00 :00 the Medical morning Branch and 2 tablets in the evening. clonazePAM 2021-0 Yes [id number] Take no Univers 1 mg tablet 8-25 more than ity of 00:00: 1 mg twice [place] 00 daily as Medical needed for Branch anxiety lithium 600 2021-0 Yes [id number] 600mg Take 1 [facility] mg capsule 8-25 capsule by ity of 00:00: mouth in [place] 00 the Medical morning Branch and 1 capsule in the evening. clonazePAM 2021-2021- No [id number] Take no Univers 1 mg tablet 8-25 10-19 more than it y of 00:00: 00:00 1 mg twice [place] 00 :00 daily as Medical needed for Branch anxiety lithium 600 2021-0 2021- No [id number] 600mg Take 1 [facility] mg capsule 8-25 10-19 capsule by it y of 00:00: 00:00 mouth in [place] 00 :00 the Medical morning Branch and 1 capsule in the evening. clonazePAM 2021- No [id number] Take no Univers 1 mg tablet 8-25 10-19 more than it y of 00:00: 00:00 1 mg twice [place] 00 :00 daily as Medical needed for Branch anxiety lithium 600 2021-0 2021- No [id number] 600mg Take 1 [facility] mg capsule 8-25 10-19 capsule by it y of 00:00: 00:00 mouth in [place] 00 :00 the Medical morning Branch and 1 capsule in the evening. Lamotrigine 2021-0 2021- No [id number] 50mg Take 1 [facility] 50 mg 8-25 08-26 tablet by ity of tablet 00:00: 00:00 mouth in [place] 00 :00 the Medical morning Branch and 1 tablet in the evening. Lamotrigine 2021-0 2021- No [id number] 50mg Take 1 [facility] 50 mg 8-11 08-25 tablet by ity of tablet 00:00: 00:00 mouth in [place] 00 :00 the Medical morning Branch and 1 tablet in the evening. DULoxetine Yes [id number] 60mg Take 1 U nivers 60 mg 7-27 capsule by ity of capsule 00:00: mouth in [place] 00 the Medical morning Branch and 1 capsule in the evening. DULoxetine 2021- No [id number] 60mg Take 1 [facility] 60 mg 7-27 10-24 capsule by ity of capsule 00:00: 00:00 mouth in [place] 00 :00 the Medical morning Branch and 1 capsule in the evening. DULoxetine 2021- No [id number] 60mg Take 1 [facility] 60 mg 7-27 10-24 capsule by ity of capsule 00:00: 00:00 mouth in [place] 00 :00 the Medical morning Branch and 1 capsule in the evening. DULoxetine 2021- No [id number] 60mg Take 1 [facility] 60 mg 7-27 10-24 capsule by ity of capsule 00:00: 00:00 mouth in [place] 00 :00 the Medical morning Branch and 1 capsule in the evening. Lamotrigine 2021- No [id number] 50mg Take 1 [facility] 50 mg 7-18 08-11 tablet by ity of tablet 00:00: 00:00 mouth in [place] 00 :00 the Medical morning Branch and 1 tablet in the evening. lithium 600 2021- No [id number] 600mg Take 1 [facility] mg capsule 7-13 08-25 capsule by it y of 00:00: 00:00 mouth in [place] 00 :00 the Medical morning Branch and 1 capsule in the evening. traZODone 2021-0 Yes [id number] 50mg Take 1 U nivers 50 mg 6-28 tablet by ity of tablet 00:00: mouth at [place] [address] bedtime. Medical May cut Branch tablet in half. DULoxetine 0 Yes [id number] 60mg Take 1 U nivers 60 mg 6-28 capsule by ity of capsule 00:00: mouth 2 [place] 00 (two) Medical times Branch daily. traZODone 0 Yes [id number] 50mg Take 1 U nivers 50 mg 6-28 tablet by ity of tablet 00:00: mouth at [place] [address] bedtime. Medical May cut Branch tablet in half. DULoxetine 2022-0 Yes [id number] 60mg Take 1 U nivers 60 mg 6-28 capsule by ity of capsule 00:00: mouth 2 [place] 00 (two) Medical times Branch daily. traZODone Yes [id number] 50mg Take 1 U nivers 50 mg 6-28 tablet by ity of tablet 00:00: mouth at [place] 00 bedtime. Medical May cut Branch tablet in half. DULoxetine Yes [id number] 60mg Take 1 U nivers 60 mg 6-28 capsule by ity of capsule 00:00: mouth 2 [place] 00 (two) Medical times Branch daily. DULoxetine Yes [id number] 60mg Take 1 U nivers 60 mg 6-28 capsule by ity of capsule 00:00: mouth 2 [place] 00 (two) Medical times Branch daily. traZODone 2021- No [id number] 50mg Take 1 [facility] 50 mg 6-28 11-21 tablet by ity of tablet 00:00: 00:00 mouth at [place] 00 :00 bedtime. Medical May cut Branch tablet in half. traZODone 2021- No [id number] 50mg Take 1 [facility] 50 mg 6-28 11-21 tablet by ity of tablet 00:00: 00:00 mouth at [place] 00 :00 bedtime. Medical May cut Branch tablet in half. traZODone 2021- No [id number] 50mg Take 1 [facility] 50 mg 6-28 11-21 tablet by ity of tablet 00:00: 00:00 mouth at [place] 00 :00 bedtime. Medical May cut Branch tablet in half. traZODone 2021- No [id number] 50mg Take 1 [facility] 50 mg 6-28 11-21 tablet by ity of tablet 00:00: 00:00 mouth at [place] 00 :00 bedtime. Medical May cut Branch tablet in half. traZODone 2021- No [id number] 50mg Take 1 [facility] 50 mg 6-28 11-21 tablet by ity of tablet 00:00: 00:00 mouth at [place] 00 :00 bedtime. Medical May cut Branch tablet in half. clonazePAM 2021- No [id number] Take no Univers 1 mg tablet 6-28 08-25 more than it y of 00:00: 00:00 1 mg twice [place] 00 :00 daily as Medical needed for Branch anxiety vitamin 2021-0 Yes [id number] 1000ug Take 1 U nivers B-12 1,000 4-11 tablet by ity of mcg tablet 00:00: mouth [place] 00 daily. Medical Branch cyanocobala 2021-0 Yes [id number] 1000ug 1 mL by Univers min 1,000 4-11 Intramuscu ity of mcg/mL 00:00: lar route [place] injection 00 weekly. Medical Branch vitamin 2021-0 Yes [id number] 1000ug Take 1 U nivers B-12 1,000 4-11 tablet by ity of mcg tablet 00:00: mouth [place] 00 daily. Medical Branch cyanocobala 0 Yes [id number] 1000ug 1 mL by Univers min 1,000 4-11 Intramuscu ity of mcg/mL 00:00: lar route [place] injection 00 weekly. Medical Branch vitamin 2021-0 Yes [id number] 1000ug Take 1 U nivers B-12 1,000 4-11 tablet by ity of mcg tablet 00:00: mouth [place] 00 daily. Medical Branch cyanocobala 0 Yes [id number] 1000ug 1 mL by [facility] min 1,000 4-11 Intramuscu ity of mcg/mL 00:00: lar route [place] injection 00 weekly. Medical Branch vitamin 2021-0 Yes [id number] 1000ug Take 1 U nivers B-12 1,000 4-11 tablet by ity of mcg tablet 00:00: mouth [place] 00 daily. Medical Branch cyanocobala 2021-0 Yes [id number] 1000ug 1 mL by Univers min 1,000 4-11 Intramuscu ity of mcg/mL 00:00: lar route [place] injection 00 weekly. Medical Branch vitamin 2021-0 Yes [id number] 1000ug Take 1 U nivers B-12 1,000 4-11 tablet by ity of mcg tablet 00:00: mouth [place] 00 daily. Medical Branch cyanocobala 2021-0 Yes [id number] 1000ug 1 mL by [facility] min 1,000 4-11 Intramuscu ity of mcg/mL 00:00: lar route [place] injection 00 weekly. Medical Branch vitamin 2021-0 Yes [id number] 1000ug Take 1 U nivers B-12 1,000 4-11 tablet by ity of mcg tablet 00:00: mouth [place] 00 daily. Medical Branch cyanocobala Yes [id number] 1000ug 1 mL by Univers min 1,000 4-11 Intramuscu ity of mcg/mL 00:00: lar route [place] injection 00 weekly. Medical Branch vitamin 0 Yes [id number] 1000ug Take 1 U nivers B-12 1,000 4-11 tablet by ity of mcg tablet 00:00: mouth [place] 00 daily. Medical Branch cyanocobala Yes [id number] 1000ug 1 mL by Univers min 1,000 4-11 Intramuscu ity of mcg/mL 00:00: lar route [place] injection 00 weekly. [facility] Branch vitamin Yes [id number] 1000ug Take 1 U nivers B-12 1,000 4-11 tablet by ity of mcg tablet 00:00: mouth [place] 00 daily. [facility] Branch cyanocobala Yes [id number] 1000ug 1 mL by Univers min 1,000 4-11 Intramuscu ity of mcg/mL 00:00: lar route [place] injection 00 weekly. [facility] Branch vitamin Yes [id number] 1000ug Take 1 U nivers B-12 1,000 4-11 tablet by ity of mcg tablet 00:00: mouth [place] 00 daily. [facility] Branch cyanocobala Yes [id number] 1000ug 1 mL by Univers min 1,000 4-11 Intramuscu ity of mcg/mL 00:00: lar route [place] injection 00 weekly. [facility] Branch losartan Yes 20mg Take 20 mg Uni vers potassium 4-05 by mouth. ity o f (LOSARTAN 09:24: [place] ORAL) [address] [place] [address] FUROSEMIDE Yes 40mg Take 40 mg U nivers ORAL 4-05 by mouth ity of 09:24: daily. [address] losartan Yes 20mg Take 20 mg Uni vers potassium 4-05 by mouth. ity o f (LOSARTAN 09:24: [place] ORAL) [address] [place] [address] FUROSEMIDE Yes 40mg Take 40 mg U nivers ORAL 4-05 by mouth ity of 09:24: daily. [address] losartan Yes 20mg Take 20 mg Uni vers potassium 4-05 by mouth. ity o f (LOSARTAN 09:24: [place] ORAL) [address] [place] [address] FUROSEMIDE 0 Yes 40mg Take 40 mg U nivers ORAL 4-05 by mouth ity of 09:24: daily. [address] losartan 0 Yes 20mg Take 20 mg Uni vers potassium 4-05 by mouth. ity o f (LOSARTAN 09:24: [place] ORAL) [address] [place] [address] FUROSEMIDE 0 Yes 40mg Take 40 mg U nivers ORAL 4-05 by mouth ity of 09:24: daily. [address] losartan 0 Yes 20mg Take 20 mg Uni vers potassium 4-05 by mouth. ity o f (LOSARTAN 09:24: [place] ORAL) [address] [place] [address] FUROSEMIDE 0 Yes 40mg Take 40 mg U nivers ORAL 4-05 by mouth ity of 09:24: daily. [address] losartan 0 Yes 20mg Take 20 mg Uni vers potassium 4-05 by mouth. ity o f (LOSARTAN 09:24: [place] ORAL) [address] [place] [address] FUROSEMIDE 0 Yes 40mg Take 40 mg U nivers ORAL 4-05 by mouth ity of 09:24: daily. [address] losartan 0 Yes 20mg Take 20 mg Uni vers potassium 4-05 by mouth. ity o f (LOSARTAN 09:24: [place] ORAL) [address] [place] [address] FUROSEMIDE 0 Yes 40mg Take 40 mg U nivers ORAL 4-05 by mouth ity of 09:24: daily. [address] losartan 2021-0 Yes 20mg Take 20 mg Uni vers potassium 4-05 by mouth. ity o f (LOSARTAN 09:24: [place] ORAL) [address] [place] [address] FUROSEMIDE 0 Yes 40mg Take 40 mg U nivers ORAL 4-05 by mouth ity of 09:24: daily. [address] losartan 0 Yes 20mg Take 20 mg Uni vers potassium 4-05 by mouth. ity o f (LOSARTAN 09:24: [place] ORAL) [address] [place] [address] FUROSEMIDE 0 Yes 40mg Take 40 mg U nivers ORAL 4-05 by mouth ity of 09:24: daily. [address] gabapentin 2021-0 Yes [id number] 300mg Take 1 [facility] 300 mg 4-05 capsule by ity of capsule 00:00: mouth 3 [place] 00 (three) Medical times Branch daily. rizatriptan 2022-0 Yes [id number] 5mg Take 1 [facility] 5 mg 4-05 tablet by ity of disintegrat 00:00: mouth as [place] ing tablet 00 needed for Med ical Migraine Branch (Take 5mg at the beginning of the headache can repeat 2h after if headaches persists). May repeat in 2 hours if needed magnesium 2022-0 Yes [id number] 400mg Take 2 [facility] gluconate 4-05 tablets by ity of 200 mg 00:00: mouth 2 [place] tablet 00 (two) Medical times Branch daily. gabapentin 2022-0 Yes [id number] 300mg Take 1 [facility] 300 mg 4-05 capsule by ity of capsule 00:00: mouth 3 [place] (three) Medical times Branch daily. rizatriptan 2022-0 Yes [id number] 5mg Take 1 [facility] 5 mg 4-05 tablet by ity of disintegrat 00:00: mouth as [place] ing tablet 00 needed for Med ical Migraine Branch (Take 5mg at the beginning of the headache can repeat 2h after if headaches persists). May repeat in 2 hours if needed magnesium 2022-0 Yes [id number] 400mg Take 2 [facility] gluconate 4-05 tablets by ity of 200 mg 00:00: mouth 2 [place] tablet 00 (two) Medical times Branch daily. gabapentin 2022-0 Yes [id number] 300mg Take 1 [facility] 300 mg 4-05 capsule by ity of capsule 00:00: mouth 3 [place] (three) Medical times Branch daily. rizatriptan 2022-0 Yes [id number] 5mg Take 1 [facility] 5 mg 4-05 tablet by ity of disintegrat 00:00: mouth as [place] tablet 00 needed for Med ical Migraine Branch (Take 5mg at the beginning of the headache can repeat 2h after if headaches persists). May repeat in 2 hours if needed magnesium 2022-0 Yes [id number] 400mg Take 2 [facility] gluconate 4-05 tablets by ity of 200 mg 00:00: mouth 2 [place] tablet 00 (two) Medical times Branch daily. gabapentin 2022-0 Yes [id number] 300mg Take 1 [facility] 300 mg 4-05 capsule by ity of capsule 00:00: mouth 3 [place] (three) Medical times Branch daily. rizatriptan 2022-0 Yes [id number] 5mg Take 1 [facility] 5 mg 4-05 tablet by ity of disintegrat 00:00: mouth as [place] ing tablet 00 needed for Med ical Migraine Branch (Take 5mg at the beginning of the headache can repeat 2h after if headaches persists). May repeat in 2 hours if needed magnesium 2022-0 Yes [id number] 400mg Take 2 [facility] gluconate 4-05 tablets by ity of 200 mg 00:00: mouth 2 [place] tablet 00 (two) Medical times Branch daily. gabapentin 2022-0 Yes [id number] 300mg Take 1 [facility] 300 mg 4-05 capsule by ity of capsule 00:00: mouth 3 [place] 00 (three) Medical times Branch daily. rizatriptan 2022-0 Yes [id number] 5mg Take 1 [facility] 5 mg 4-05 tablet by ity of disintegrat 00:00: mouth as [place] ing tablet 00 needed for Med ical Migraine Branch (Take 5mg at the beginning of the headache can repeat 2h after if headaches persists). May repeat in 2 hours if needed magnesium 2022-0 Yes [id number] 400mg Take 2 [facility] gluconate 4-05 tablets by ity of 200 mg 00:00: mouth 2 [place] tablet 00 (two) Medical times Branch daily. gabapentin 2022-0 Yes [id number] 300mg Take 1 [facility] 300 mg 4-05 capsule by ity of capsule 00:00: mouth 3 [place] 00 (three) Medical times Branch daily. rizatriptan 2022-0 Yes [id number] 5mg Take 1 [facility] 5 mg 4-05 tablet by ity of disintegrat 00:00: mouth as [place] ing tablet 00 needed for Med ical Migraine Branch (Take 5mg at the beginning of the headache can repeat 2h after if headaches persists). May repeat in 2 hours if needed magnesium 2022-0 Yes [id number] 400mg Take 2 Univers gluconate 4-05 tablets by ity of 200 mg 00:00: mouth 2 [place] tablet 00 (two) Medical times Branch daily. gabapentin 2022-0 Yes [id number] 300mg Take 1 Univers 300 mg 4-05 capsule by ity of capsule 00:00: mouth 3 [place] 00 (three) Medical times Branch daily. rizatriptan 2022-0 Yes [id number] 5mg Take 1 Univers 5 mg 4-05 tablet by ity of [place] 00 needed for Med ical Migraine Branch (Take 5mg at the beginning of the headache can repeat 2h after if headaches persists). May repeat in 2 hours if needed magnesium 2022-0 Yes [id number] 400mg Take 2 Univers gluconate 4-05 tablets by ity of 200 mg 00:00: mouth 2 [place] tablet 00 (two) Medical times Branch daily. gabapentin 2022-0 Yes [id number] 300mg Take 1 Univers 300 mg 4-05 capsule by ity of capsule 00:00: mouth 3 [place] 00 (three) Medical times Branch daily. rizatriptan 2022-0 Yes [id number] 5mg Take 1 Univers 5 mg 4-05 tablet by ity of [place]: [place] 00 needed for Med ical Migraine Branch (Take 5mg at the beginning of the headache can repeat 2h after if headaches persists). May repeat in 2 hours if needed magnesium 2022-0 Yes [id number] 400mg Take 2 Univers gluconate 4-05 tablets by ity of 200 mg 00:00: mouth 2 [place] tablet 00 (two) Medical times Branch daily. gabapentin 2-0 Yes [id number] 300mg Take 1 Univers 300 mg 4-05 capsule by ity of capsule 00:00: mouth 3 [place] 00 (three) Medical times Branch daily. rizatriptan 2022-0 Yes [id number] 5mg Take 1 [facility] 5 mg 4-05 tablet by ity of [place] 00 needed for Med ical Migraine Branch (Take 5mg at the beginning of the headache can repeat 2h after if headaches persists). May repeat in 2 hours if needed magnesium 2-0 Yes [id number] 400mg Take 2 Univers gluconate 4-05 tablets by ity of 200 mg 00:00: mouth 2 [place] tablet 00 (two) Medical times Branch daily. ondansetron 2020-0 Yes [id number] 4mg Take 1 Univers (ZOFRAN 7-22 tablet by ity of ODT) 4 mg 00:00: mouth [place] disintegrat 00 every 8 Medic al ing tablet (eight) Branch hours as needed for Nausea and Vomiting (N/V). ondansetron 2020-0 Yes [id number] 4mg Take 1 Univers (ZOFRAN 7-22 tablet by ity of ODT) 4 mg 00:00: mouth [place] disintegrat 00 every 8 Medic al ing tablet (eight) Branch hours as needed for Nausea and Vomiting (N/V). ondansetron 2020-0 Yes [id number] 4mg Take 1 Univers (ZOFRAN 7-22 tablet by ity of ODT) 4 mg 00:00: mouth [place] disintegrat 00 every 8 Medic al ing tablet (eight) Branch hours as needed for Nausea and Vomiting (N/V). ondansetron 2020-0 Yes [id number] 4mg Take 1 Univers (ZOFRAN 7-22 tablet by ity of ODT) 4 mg 00:00: mouth [place] disintegrat 00 every 8 Medic al ing tablet (eight) Branch hours as needed for Nausea and Vomiting (N/V). ondansetron 2020-0 Yes [id number] 4mg Take 1 Univers (ZOFRAN 7-22 tablet by ity of ODT) 4 mg 00:00: mouth [place] disintegrat 00 every 8 Medic al ing tablet (eight) Branch hours as needed for Nausea and Vomiting (N/V). ondansetron 2020-0 Yes [id number] 4mg Take 1 Univers (ZOFRAN 7-22 tablet by ity of ODT) 4 mg 00:00: mouth [place] disintegrat 00 every 8 Medic al ing tablet (eight) Branch hours as needed for Nausea and Vomiting (N/V). ondansetron 2020-0 Yes [id number] 4mg Take 1 Univers (ZOFRAN 7-22 tablet by ity of ODT) 4 mg 00:00: mouth [place] disintegrat 00 every 8 Medic al ing tablet (eight) Branch hours as needed for Nausea and Vomiting (N/V). ondansetron 2020-0 Yes [id number] 4mg Take 1 Univers (ZOFRAN 7-22 tablet by ity of ODT) 4 mg 00:00: mouth [place] disintegrat 00 every 8 Medic al ing tablet (eight) Branch hours as needed for Nausea and Vomiting (N/V). ondansetron 2020-0 Yes [id number] 4mg Take 1 Univers (ZOFRAN 7-22 tablet [...] by mouth ity of tablet 13:17: at [place] [address] bedtime. Medical Branch allopurinoL 2020-0 Yes 100mg Take 100 U nivers 100 mg 6-24 mg by ity of tablet 13:17: mouth [place] 52 daily. Medical Branch atorvastati 2020-0 Yes 10mg Take 10 mg Univers n 10 mg 6-24 by mouth ity of tablet 13:17: at [place] 52 bedtime. Medical Branch allopurinoL 2020-0 Yes 100mg Take 100 U nivers 100 mg 6-24 mg by ity of tablet 13:17: mouth [place] 52 daily. Medical Branch atorvastati 2020-0 Yes 10mg Take 10 mg Univers n 10 mg 6-24 by mouth ity of tablet 13:17: at [place] [address] bedtime. Medical Branch propranolol 2020-0 Yes 80mg Take 80 mg Univers 80 mg 6-24 by mouth 2 ity of tablet 13:12: (two) [place] 38 times Medical daily. Branch propranolol 2020-0 Yes 80mg Take 80 mg Univers 80 mg 6-24 by mouth 2 ity of tablet 13:12: (two) [place] 38 times Medical daily. Branch propranolol 2020-0 Yes 80mg Take 80 mg Univers 80 mg 6-24 by mouth 2 ity of tablet 13:12: (two) [place] 38 times Medical daily. Branch propranolol 2020-0 Yes 80mg Take 80 mg Univers 80 mg 6-24 by mouth 2 ity of tablet 13:12: (two) [place] 38 times Medical daily. Branch propranolol 2020-0 Yes 80mg Take 80 mg Univers 80 mg 6-24 by mouth 2 ity of tablet 13:12: (two) [place] 38 times Medical daily. Branch propranolol 2020-0 Yes 80mg Take 80 mg Univers 80 mg 6-24 by mouth 2 ity of tablet 13:12: (two) [place] 38 times Medical daily. Branch propranolol 2020-0 Yes 80mg Take 80 mg Univers 80 mg 6-24 by mouth 2 ity of tablet 13:12: (two) [place] 38 times Medical daily. Branch propranolol 2020-0 Yes 80mg Take 80 mg Univers 80 mg 6-24 by mouth 2 ity of tablet 13:12: (two) [place] 38 times Medical daily. Branch propranolol 2020-0 Yes 80mg Take 80 mg Univers 80 mg 6-24 by mouth 2 ity of tablet 13:12: (two) [place] 38 times Medical daily. Branch Vital Signs Vital Name Observation Time Observation Value Comments Source Respiratory rate 2022-01-11 17:11:00 18 /min [facility] [place] [facility] [place] Body height 2022-01-11 17:11:00 167.6 cm [facility] [place] [facility] [place] Body weight 2022-01-11 17:11:00 100.699 kg [facility] [place] [facility] [place] BMI 2022-01-11 17:11:00 35.83 kg/m2 [facility] [place] [facility] Systolic blood 2021-08-24 14:24:00 133 mm[Hg] Univer sity of pressure [place] [facility] [place] Diastolic blood 2021-08-24 14:24:00 73 mm[Hg] Unive rsity of pressure [facility] Heart rate 2021-08-24 14:24:00 69 /min [facility] [place] [facility] Respiratory rate 2021-08-24 14:24:00 18 /min [facility] Body height 2021-08-24 14:24:00 167.6 cm [facility] [place] [facility] Body weight 2021-08-24 14:24:00 100.245 kg [facility] [place] [facility] BMI 2021-08-24 14:24:00 35.67 kg/m2 [facility] [place] [facility] Oxygen saturation in 2021-06-07 15:30:00 96 /min [facility] Arterial blood by [facility] Pulse oximetry Branch Body temperature 2021-06-07 14:20:30 37.44 [facility] Procedures Procedure Date / Time Performed Performing Clinician Sour e CONSENT/REFUSAL FOR 2022-01-11 17:10:16 Doctor Unassigned, No [facility] [place] DIAGNOSIS AND Name Medical Branch TREATMENT CONSENT/REFUSAL FOR 2022-01-11 17:10:16 Doctor Unassigned, No [facility] [place] DIAGNOSIS AND Name Medical Branch TREATMENT Encounters Start End Encounter Admission Attending Care Care Encounter Source Date/Time Date/Time Type Type Clinicians Facility Department ID 2020-12-13 Emergency [facility] [id number] Univers 10:09:54 ity of [facility] 2020-12-11 Emergency [facility] [id number] Univers 04:02:45 ity [facility] [place] 2022-01-11 2022-01-11 Outpatient R UNA HESTER [facility] [id number] Univers 11:00:00 12:39:46 UNA HESTER dl [facility] [place] 2022-01-11 2022-01-11 Orders Doctor 1.2.840.8 [id number] Univers 00:00:00 00:00:00 Only Unassigned, 63263.1.1 ity of [place] 3.104.2.7 [place] .3.957867 Medica l .8 [place] 2022-01-11 2022-01-11 Travel 1.2.840.1 1.2.223.463 [id number] Univers 00:00:00 00:00:00 71576.1.1 350.1.13.10 ity of 3.104.2.7 4.2.7.3.698 [place] .3.733907 084.8 Medica l .8 [place] 2021-11-24 2021-11-24 Outpatient R SAAVEDRA, [facility] [id number] Univers 09:30:00 09:30:00 IGOR wesley o [facility] [place] 2021-11-16 2021-11-16 Outpatient R UNA HESTER [facility] [id number] Univers 11:00:00 11:00:[address] [facility] 2021-10-26 2021-10-26 Outpatient R SELF, [facility] [id number] Univers 08:00:00 08:00:00 DERRELL martinez [facility] 2021-10-20 2021-10-20 Outpatient R SAAVEDRA, [facility] [id number] Univers 10:00:00 10:00:00 IGOR wesley o juan [facility] 2021-10-03 2021-10-03 Outpatient R JENNIFER [facility] [id number] Univers 14:30:00 14:30:00 REX wesley [facility] [place] 2021-09-21 2021-09-21 Outpatient R SELF, [facility] [id number] Univers 09:30:00 09:30:00 DERRELL walters [facility] [place] 2021-08-24 2021-08-24 Outpatient R SELF, [facility] [id number] Univers 09:30:00 10:41:34 DERRELL walters [facility] [place] 2021-08-24 2021-08-24 Travel 1.2.840.1 1.2.641.590 [id number] Univers 00:00:00 00:00:00 01316.1.1 350.1.13.10 ity of 3.104.2.7 4.2.7.3.698 [place] .3.671786 084.8 Medica l .8 [place] 2021-07-25 2021-07-25 Outpatient R SELF, [facility] [id number] Univers 09:00:00 09:00:00 DERRELL walters [facility] [place] 2021-06-22 2021-06-22 Outpatient R UNA HESTER [facility] [id number] Univers 11:15:00 12:18:[address] [facility] 2021-06-22 2021-06-22 Outpatient R UNA HESTER [facility] [id number] Univers 11:15:00 11:15:[address] [facility] 2021-06-22 2021-06-22 Travel 1.2.840.1 1.2.471.392 [id number] Univers 00:00:00 00:00:00 40274.1.1 350.1.13.10 ity of 3.104.2.7 4.2.7.3.698 [place] .3.492511 084.8 Medica l .8 [place] 2021-06-20 2021-06-20 Outpatient R SELF, [facility] [id number] Univers 11:15:00 11:15:00 DERRELL walters [facility] [place] 2021-06-20 2021-06-20 Outpatient R SELF, [facility] [id number] Univers 11:15:00 11:15:00 DERRELL walters [facility] [place] 2021-06-08 2021-06-08 Outpatient R HILARY MOORE [facility] [id number] Univers 09:20:00 09:20:00 HILARY MOORE ity of [facility] 2021-06-08 2021-06-08 Patient Saavedra, 1.2.840.6 [id number] Univers 00:00:00 00:00:00 Secure Msg Igor 79679.1.1 ity of [place] 3.104.2.7 [place] .3.620753 Medica l .8 [place] 2021-06-07 2021-06-07 Emergency X [place], [facility] ERT [id number] Univers 09:13:00 10:50:00 LULY wesley of [facility] 2021-06-07 2021-06-07 [facility] [id number] Univers 09:13:00 10:50:00 Luly [place] 350.1.13.10 i ty of [place] 4.2.7.2.686 [facility] [id number] [facility] 084 [place] 2021-06-07 2021-06-07 Emergency Ny, 1.2.840.4 [id number] Univers 09:13:00 10:50:00 Luly 81467.1.1 ity of 3.104.2.7 [place] .3.052260 Medica l .8 [place] 2021-06-07 2021-06-07 Outpatient R SAAVEDRA, [facility] [id number] Univers 00:00:00 00:00:00 IGOR wesley o f [facility] 2021-06-07 2021-06-07 Orders Doctor MOO 1.2.840.114 [id number] Univers 00:00:00 00:00:00 Only Unassigned, QUITA 350.1.13.10 ity of [place] [facility] 4.2.7.2.[address] [facility] [place] [place] [id number] [facility] 009 Branch 2021-06-07 2021-06-07 Travel 1.2.840.1 1.2.167.169 [id number] Univers 00:00:00 00:00:00 94613.1.1 350.1.13.10 ity of 3.104.2.7 4.2.7.3.698 [place] .3.702129 084.8 Medica l .8 [place] 2021-06-07 2021-06-07 Orders Doctor 1.2.840.7 [id number] Univers 00:00:00 00:00:00 Only Unassigned, 05286.1.1 ity of [place] 3.104.2.7 [place] .3.886699 Medica l .8 Branch 2021-06-03 2021-06-03 Travel 1.2.840.1 1.2.830.917 [id number] Univers 00:00:00 00:00:00 54251.1.1 350.1.13.10 ity of 3.104.2.7 4.2.7.3.698 [place] .3.385826 084.8 Medica l .8 [place] 2021-05-27 2021-05-27 Outpatient R SAAVEDRA, [facility] [id number] Univers 00:00:00 00:00:00 IGOR walters [facility] [place] 2021-05-27 2021-05-27 Outpatient R SAAVEDRA, [facility] [id number] Univers 00:00:00 00:00:00 IGOR walters [facility] [place] 2021-05-25 2021-05-25 Patient Doctor 1.2.840.6 [id number] Univers 00:00:00 00:00:00 Secure Msg Unassigned, 23939.1.1 ity of [place] 3.104.2.7 [place] .3.700001 Medica l .8 [place] 2021-05-25 2021-05-25 Patient Doctor 1.2.840.1 [id number] Univers 00:00:00 00:00:00 Secure Msg Unassigned, 86147.1.1 ity of [place] 3.104.2.7 [place] .3.451197 Medica l .8 [place] 2021-05-20 2021-05-20 Telephone Jones 1.2.840.5 [id number] Univers 00:00:00 00:00:00 Best, 01464.1.1 ity of [place] 3.104.2.7 [place] .3.339627 Medica l .8 Branch 2021-05-20 2021-05-20 Telephone Jones 1.2.840.2 [id number] Univers 00:00:00 00:00:00 Best, 04382.1.1 ity of [place] 3.104.2.7 [place] .3.853131 Medica l .8 Branch 2021-05-18 2021-05-18 Travel 1.2.840.1 1.2.628.327 [id number] Univers 00:00:00 00:00:00 99935.1.1 350.1.13.10 ity of 3.104.2.7 4.2.7.3.698 [place] .3.789695 084.8 Medica l .8 Branch 2021-05-18 2021-05-18 Travel 1.2.840.1 1.2.817.170 [id number] [facility] 00:00:00 00:00:00 65316.1.1 350.1.13.10 ity of 3.104.2.7 4.2.7.3.698 [place] .3.482057 084.8 Medica l .8 [place] 2021-05-17 2021-05-17 Senior Sourcing Manager Pcp-Lab [facility] 1.2.840.114 [id number] Univers 13:15:00 13:30:00 Visit Igor Saavedra PRIMARY 350.1.13.1 0 ity of [place] 4.2.7.2.686 [place] [id number] Il dical 366 [place] 2021-05-17 2021-05-17 Senior Sourcing Manager Igor Saavedra 1.2.840.1 1 [id number] Univers 13:15:00 13:30:00 Visit Pcp-Lab 20235.1.1 ity of 3.104.2.7 [place] .3.623103 Medica l .8 [place] 2021-05-17 2021-05-17 Senior Sourcing Manager Igor Saavedra 1.2.840.1 1 [id number] Univers 13:15:00 13:30:00 Visit Pcp-Lab 42637.1.1 ity of 3.104.2.7 [place] .3.299370 Medica l .8 [place] 2021-05-17 2021-05-17 Outpatient R [facility] [id number] Univers 09:00:00 10:25:05 IGOR bricedl [facility] 2021-05-17 2021-05-17 Office SaavedraEtta reinaIgorimelda [place] 1.2.840.1 [id number] Univers 09:00:00 10:25:05 Visit Deonte Joel 51423.1.1 ity of 3.104.2.7 [place] .3.593901 Medica l .8 [place] 2021-05-17 2021-05-17 Outpatient R [facility] [id number] Univers 09:00:00 10:25:05 IGOR wesley [facility] 2021-05-17 2021-05-17 Outpatient R [facility] [id number] Univers 09:30:00 09:30:00 [facility] 2021-05-17 Travel 1.2.840.1 1.2.097.379 [id number] Univers 00:00:00 00:00:00 31134.1.1 350.1.13.10 ity of 3.104.2.7 4.2.7.3.698 [place] .3.655923 084.8 Medica l .8 [place] 2021-05-17 2021-05-17 Travel 1.2.840.1 1.2.427.376 [id number] Univers 00:00:00 00:00:00 35753.1.1 350.1.13.10 ity of 3.104.2.7 4.2.7.3.698 [place] .3.600439 084.8 Medica l .8 [place] 2021-04-26 2021-04-26 Outpatient R [facility] [id number] Univers 09:00:00 09:00:00 ity [facility] [place] 2021-04-26 2021-04-26 Outpatient R WENDY [facility] [id number] Univers 09:00:00 09:00:00 [facility] [place] [facility] 2021-04-20 2021-04-20 Outpatient R KACIESUKHJINDERUNA [facility] [id number] Univers 08:45:00 08:45:[address] [facility] 2021-04-11 2021-04-11 Outpatient SALLY FIGUEROA [facility] [id number] Univers 08:40:00 08:40:[address] [facility] 2021-04-11 2021-04-11 Outpatient SALLY FIGUEROA [facility] [id number] Univers 08:40:00 08:40:[address] [facility] 2021-03-21 2021-03-21 Outpatient SALLY FIGUEROA [facility] [id number] Univers 08:00:00 08:00:[address] [facility] 2021-03-17 2021-03-17 Patient Doctor 1.2.840.0 [id number] Univers 00:00:00 00:00:00 Secure Msg Unassigned, 77877.1.1 ity of [place] 3.104.2.7 [place] .3.760160 Medica l .8 [place] 2021-03-17 2021-03-17 Patient Doctor 1.2.840.6 [id number] Univers 00:00:00 00:00:00 Secure Msg Unassigned, 91881.1.1 ity of [place] 3.104.2.7 [place] .3.591404 Medica l .8 [place] 2021-03-17 2021-03-17 Patient Doctor 1.2.840.6 [id number] Univers 00:00:00 00:00:00 Secure Msg Unassigned, 81342.1.1 ity of [place] 3.104.2.7 [place] .3.596730 Medica l .8 [place] 2021-03-16 2021-03-16 Senior Sourcing Manager [place] 1.2.840.1 [id number] Univers 13:15:00 13:30:00 Visit Pcp-Lab 61701.1.1 ity of 3.104.2.7 [place] .3.633891 Medica l .8 [place] 2021-03-16 2021-03-16 Senior Sourcing Manager [place] 1.2.840.1 0 [id number] Univers 13:15:00 13:30:00 Visit Pcp-Lab 36646.1.1 ity of 3.104.2.7 [place] .3.331481 Medica l .8 [place] 2021-03-16 2021-03-16 Outpatient Tonya LOCKWOOD [facility] [id number] Univers 13:15:00 13:15:[address] [facility] 2021-03-16 2021-03-16 [facility] [id number] Univers 12:00:00 12:09:51 [facility] [place] 2021-03-16 2021-03-16 [facility] [id number] Univers 12:00:00 12:09:51 [facility] [place] 2021-03-16 2021-03-16 [facility] [id number] Univers 12:00:00 12:00:[address] [facility] 2021-03-16 2021-03-16 Travel 1.2.840.1 1.2.940.693 [id number] Univers 00:00:00 00:00:00 34557.1.1 350.1.13.10 ity of 3.104.2.7 4.2.7.3.698 [place] .3.280432 084.8 Medica l .8 [place] 2021-03-16 2021-03-16 Travel 1.2.840.1 1.2.871.692 [id number] Univers 00:00:00 00:00:00 39700.1.1 350.1.13.10 ity of 3.104.2.7 4.2.7.3.698 [place] .3.972663 084.8 Medica l .8 [place] 2021-03-11 2021-03-11 [facility] [id number] Univers 09:44:00 13:06:00 HALIMA ity of [facility] 2021-03-11 2021-03-11 Emergency Geeta, 1.2.840.5 [id number] Univers 09:44:00 13:06:00 Halima Cates 10764.1.1 ity of 3.104.2.7 [place] .3.292563 Medica l .8 [place] 2021-03-11 2021-03-11 Emergency [facility] [id number] Univers 09:44:00 13:06:00 HALIMA ity of [facility] 2021-03-11 2021-03-11 Emergency Geeta, 1.2.840.9 [id number] Univers 09:44:00 13:06:00 Halima Cates 37516.1.1 ity of 3.104.2.7 [place] .3.792769 Medica l .8 [place] 2021-03-11 2021-03-11 Emergency [facility] [id number] Univers 09:44:00 13:06:00 HALIMA ity of [facility] 2021-03-11 2021-03-11 Emergency [facility] [id number] Univers 09:44:00 09:44:00 HALIMA ity of [facility] 2021-03-11 2021-03-11 Travel 1.2.840.1 1.2.462.751 [id number] Univers 00:00:00 00:00:00 54206.1.1 350.1.13.10 ity of 3.104.2.7 4.2.7.3.698 [place] .3.984426 084.8 Medica l .8 [place] 2021-03-11 2021-03-11 Travel 1.2.840.1 1.2.184.381 [id number] Univers 00:00:00 00:00:00 86709.1.1 350.1.13.10 ity of 3.104.2.7 4.2.7.3.698 [place] .3.617807 084.8 Medica l .8 [place] 2021-03-08 2021-03-08 Senior Sourcing Manager [place] Lock[place] 1.2.840.1 [id number] Univers 15:00:00 15:15:00 Visit Pcp-Lab 78206.1.1 ity of 3.104.2.7 [place] .3.903663 Medica l .8 [place] 2021-03-08 2021-03-08 Senior Sourcing Manager [place] 1.2.840.1 [id number] Univers 15:00:00 15:15:00 Visit Pcp-Lab 30991.1.1 ity of 3.104.2.7 [place] .3.267500 Medica l .8 [place] 2021-03-08 2021-03-08 Outpatient R FABIÁN, [facility] [id number] Univers 15:00:00 15:00:00 RALEIGH bricey [facility] [place] 2021-01-31 2021-01-31 Outpatient R SELF, [facility] [id number] Univers 10:15:00 10:55:06 DERRELL wesley [facility] 2020-12-29 2020-12-29 Outpatient R SELF, [facility] [id number] Univers 08:00:00 08:41:00 DERRELL wesley [facility] 2020-12-29 2020-12-29 Outpatient R SELF, [facility] [id number] Univers 08:00:00 08:41:00 DERRELL wesley [facility] 2020-12-29 2020-12-29 Travel 1.2.840.1 1.2.650.523 [id number] Univers 00:00:00 00:00:00 16548.1.1 350.1.13.10 ity of 3.104.2.7 4.2.7.3.698 [place] .3.674177 084.8 Medica l .8 [place] 2020-12-29 2020-12-29 Travel 1.2.840.1 1.2.549.081 [id number] Univers 00:00:00 00:00:00 93635.1.1 350.1.13.10 ity of 3.104.2.7 4.2.7.3.698 [place] .3.759993 084.8 Medica l .8 [place] 2020-12-22 2020-12-22 Outpatient R SELF, [facility] [id number] Univers 09:30:00 09:30:00 DERRELL wesley o [facility] [place] 2020-12-22 2020-12-22 Outpatient R SELF, [facility] [id number] Univers 09:30:00 09:30:00 DERRELL walters [facility] [place] 2020-11-10 2020-11-10 Outpatient R SHE, [facility] [id number] Univers 09:30:00 09:30:00 [place] [facility] [place] [facility] 2020-11-10 2020-11-10 Orders Doctor 1.2.840.6 [id number] Univers 00:00:00 00:00:00 Only Unassigned, 11977.1.1 ity of [place] 3.104.2.7 [place] .3.865923 Medica l .8 [place] 2020-11-10 2020-11-10 Travel 1.2.840.1 1.2.885.350 [id number] Univers 00:00:00 00:00:00 02690.1.1 350.1.13.10 ity of 3.104.2.7 4.[place].3.698 [place] .3.163783 084.8 Medica l .8 [place] 2020-10-11 2020-10-11 Outpatient R SELF, [facility] [id number] Univers 08:00:00 08:00:00 DERRELL walters [facility] [place] 2020-10-11 2020-10-11 Travel 1.2.840.1 1.2.993.970 [id number] Univers 00:00:00 00:00:00 82214.1.1 350.1.13.10 ity of 3.104.2.7 4.[place]7.3.698 [place] .3.291060 084.8 Medica l .8 Branch 2020-09-13 2020-09-13 Outpatient R SELF, [facility] [id number] Univers 08:00:00 08:00:00 DERRELL ity o f [facility] 2020-09-13 2020-09-13 Travel 1.2.840.1 1.2.300.182 [id number] Univers 00:00:00 00:00:00 86123.1.1 350.1.13.10 ity of 3.104.2.7 4.[place].7.3.698 [place] .3.181075 084.8 Medica l .8 Branch 2020-09-02 2020-09-02 Emergency Rose, 1.2.840.9 [id number] [facility] 16:12:00 20:21:00 Patti 58007.1.1 ity of 3.104.2.7 [place] .3.575460 Medica l .8 Branch 2020-09-02 2020-09-02 Emergency Rose, [facility] 1.2.840.114 [id number] 16:12:00 20:21:00 Patti [place] 350.1.13.10 [place] 4.2.7.2.686 [place] [id number] 2020-09-02 2020-09-02 Travel 1.2.840.1 1.2.918.557 [id number] Univers 00:00:00 00:00:00 97894.1.1 350.1.13.10 ity of 3.104.2.7 4.[place]7.3.698 [place] .3.801969 084.8 Medica l .8 Branch 2020-09-02 2020-09-02 Orders Doctor 1.2.840.7 [id number] Univers 00:00:00 00:00:00 Only Unassigned, 41113.1.1 ity of [place] 3.104.2.7 [place] .3.769639 Medica l .8 Branch 2020-09-02 2020-09-02 Orders Doctor MOO 1.2.840.114 [id number] 00:00:00 00:00:00 Only Unassigned, QUITA 350.1.13.10 [place] [facility] 4.2.7.2.686 [id number] 009 2020-08-25 2020-08-25 Outpatient R [facility] [id number] Univers 09:15:00 09:15:[address] [facility] 2020-08-09 2020-08-09 Outpatient R SELF, [facility] [id number] Univers 08:45:00 08:45:00 DERRELL ity o [facility] 2020-06-28 2020-06-28 Outpatient R FABIÁN, [facility] [id number] Univers 13:45:00 13:45:00 [facility] 2020-06-21 2020-06-21 Outpatient R SELF, [facility] [id number] Univers 15:15:00 15:15:00 DERRELL ity o [facility] 2020-06-07 2020-06-07 Outpatient R SELF, [facility] [id number] Univers 08:45:00 08:45:00 DERRELL ity o [facility] 2020-05-25 2020-05-25 Outpatient R MICHELLE, [facility] [id number] Univers 08:30:00 08:30:[address] [facility] 2020-03-15 2020-03-15 Outpatient R FABIÁN, [facility] [id number] Univers 13:00:00 13:00:00 [facility] 2020-03-08 2020-03-08 Outpatient R SELF, [facility] [id number] Univers 13:00:00 13:00:00 DERRELL ity o f [facility] 2020-02-16 2020-02-16 Outpatient R SELF, [facility] [id number] Univers 11:00:00 11:00:00 DERRELL ity o f [facility] 2020-01-27 2020-01-27 Outpatient R SELF, [facility] [id number] Univers 11:45:00 11:45:00 DERRELL ity o f [facility] 2020-01-19 2020-01-19 Outpatient R LARISSA, [facility] [id number] Univers 08:00:00 08:00:00 DERRELL martinez [facility] 2019-12-22 2019-12-22 Outpatient R LARISSA, [facility] [id number] Univers 08:45:00 08:45:00 DERRELL martinez [facility] 2019-12-05 2019-12-05 Outpatient R ALEISHA, [facility] [id number] Univers 10:45:00 10:45:[address] [facility] 2019-10-23 2019-10-23 Outpatient R DELGADO, [facility] [id number] Univers 09:15:00 09:15:[address] [facility] 2019-10-15 2019-10-15 Outpatient R SHE, [facility] [id number] Univers 11:30:00 11:30:[address] [facility] 2019-10-01 2019-10-01 Outpatient R SHE, [facility] [id number] Univers 14:30:00 14:30:[address] [facility] 2019-09-01 2019-09-01 Outpatient R LARISSA, [facility] [id number] Univers 08:45:00 08:45:00 DERRELL martinez [facility] 2019-08-06 2019-08-06 Outpatient Tonya SHALOM, [facility] [id number] Univers 13:00:00 13:00:[address] [facility] Results Test Description Test Time Test Comments [...] VERY HIGH...... ...>/= 190 mg/dL Comments to Metal Pourer: ADD TO AM LABSLIPID PROFILE (CORONARY RISK)2018-07-20 [...] MG/DL 0-99 code = LDL) Comments to Metal Pourer: ADD TO AM LABSPROTHROMBIN [id number] 06:24:00 Test Item Value Reference Range Interpretation [...] myocar dial infarction. 2.0 - 3.0 3. 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 3.0 - 4.5 Comments to Metal Pourer: NURSE WILL BRING SPECIMEN TO LABPTT ACTIVATED 2018-07-20 06:24:00 Test Item Value Reference Range Interpretation Comments PTT ACTIVATED (test code = APTT) 29.3 SECONDS 22.0-33.0 N Comments to Metal Pourer: NURSE WILL BRING SPECIMEN TO LABBASIC METABOLIC [...] 9.6 MG/DL 8.4-10.2 N CA) Comments to Metal Pourer: NURSE WILL BRING SPECIMEN TO LAB Comments to Metal Pourer: NURSE WILL BRING SPECIMEN TO [id number] 06:13:00 Test Item Value Reference Range Interpretation Comments MAGNESIUM (test code = MAG) 2.2 MG/DL 1.6-2.3 N Comments to Metal Pourer: NURSE WILL BRING SPECIMEN TO LAB Comments to Metal Pourer: NURSE WILL BRING SPECIMEN TO LABCBC W/AUTO [id number] 06:02:00 Test Item Value Reference Range Interpretation [...]
[2022-01-29] MEDS ORDERED: LIDOCAINE VISCOUS 2% SOLN 15 ML UDC ONE (18:48)
[2022-01-29] MEDS ORDERED: MAGNES/ALUMIN/SIMET 30ML UCUP ONE (18:48)
[2022-01-29 19:05] LABS: Absolute Lymphocytes (CBC) 1.9 K/uL (0.7-4.9); Hematocrit 31.5 % (36.0-45.0); Lymphocytes % 18.7 % (15.3-44.8); MCV 70.3 fL (80-100); MPV 8.9 fL (7.6-11.3); RBC Red Blood Cell Count 4.49 M/uL (3.86-4.86)
[2022-01-29 19:08] LABS: Protime INR 0.96
[2022-01-29] MEDS ORDERED: KETOROLAC 30 MG/ML INJ ONE (19:27)
--- NOTE | 2022-01-29 19:34 | RAD REPORT ---
EXAM DESCRIPTION: RAD - Chest Single View - 01/29/2022 6:48 pm CLINICAL HISTORY: CHEST PAIN COMPARISON: Portable 01/16/2022 Intuniv 12 03 TECHNIQUE: AP portable chest image was obtained 01/29/2022 6:48 pm . FINDINGS: Lung volumes are low. Interstitial pattern not clearly different from comparison. Shallow inspiration accentuates the baseline interstitial pattern potentially masking mild interstitial edema or infiltrate. Heart and vasculature are normal. No measurable pleural effusion and no pneumothorax. No acute bony abnormality seen. No acute aortic findings suspected. IMPRESSION: No peripheral mass or consolidation. Mildly prominent interstitial pattern is believed be baseline but could potentially mask a mild inter stitial edema or infiltrate.
--- NOTE | 2022-01-29 21:45 | RAD REPORT ---
EXAM DESCRIPTION: CT - Chest For Pe Angio - 01/29/2022 8:49 pm CLINICAL HISTORY: chest pain, elevated d-dimer COMPARISON: Chest Single View dated 01/29/2022 TECHNIQUE: Dynamically enhanced 3 mm thick images of the chest were obtained during administration o f approximately 150mL Isovue 370 IV contrast. Coronal and oblique MIP reconstruction images were gene rated and reviewed. Exam utilizes a protocol to evaluate the pulmonary arterial tree. All CT scans are performed using dose optimization technique as appropriate and may include automated exposure control or mA/KV adjustment according to patient size. FINDINGS: No pulmonary emboli are identified. The aorta as imaged shows no acute or suspicious finding. No pericardial thickening or effusion. No infiltrate or mass in the lung parenchyma. No pleural effusion or pleural thickening. No mediastinal or hilar suspicious masses. No chest wall masses or abnormal axillary lymphadenopathy. IMPRESSION: No pulmonary emboli identified. No other significant or suspicious findings.
[2022-01-30 01:01] LABS: ALT/SGPT 24 U/L (13-56); AST/SGOT 15 U/L (15-37); Albumin 3.2 g/dL (3.4-5.0); Alkaline Phosphatase 119 U/L (45-117); BUN Blood Urea Nitrogen 11 mg/dL (7-18); Bicarbonate 23 mmol/L (21-32); Bilirubin Total 0.2 mg/dL (0.2-1.0); Glomerular Filtration Rate 97 ml/min (=/>90); Glucose Level 102 mg/dL (74-106); Magnesium 2.4 mg/dL (1.6-2.4); NT PRO-BNP 22 pg/mL (<125); Potassium 3.8 mmol/L (3.5-5.1); Protein, Total 6.5 g/dL (6.4-8.2); Sodium Level 137 mmol/L (136-145)
[2022-01-30 01:02] LABS: Bilirubin Direct < 0.1 mg/dL (0-0.2)
--- NOTE | 2022-01-30 01:08 | EDPHYS ---
Physician Documentation [facility] Name: Shivani Lagunas Age: 46 yrs Sex: Female : 1975 Arrival Date: 01/29/2022 Time: 18:01 Bed 20 Private MD: ED Physician Jean Carlos Andrews HPI: 01/29 18:16 This 46 yrs old Female presents to ER via Ambulatory with complaints of Chest [facility] Pain, Back Pain. 18:16 This is a 46 year old female with history of anxiety,, bipolar the presents emerged [facility] part with complaints of substernal chest pain beginning just prior to arrival which she states radiates to the back. Denies shortness of breath, abdominal pain, vomiting. Denies any history of coronary artery disease.. 19:02 Patient states she was diagnosed with flu and bronchitis last night. Pain is worsened [facility] with deep inspiration. . Historical: - Allergies: 18:15 Sulfa (Sulfonamide Antibiotics); hb - Home Meds: 18:15 allopurinol 100 mg Oral tab 1 tab once daily [Active]; alprazolam 0.5 mg Oral tab hb [Active]; atorvastatin 10 mg Oral tab 1 tab once daily [Active]; clonazepam 2 mg Oral tab nightly [Active]; duloxetine 90 mg Oral cpDR 1 cap once daily [Active]; lamotrigine Oral [Active]; lithium carbonate 600 mg Oral cap daily [Active]; losartan 100 mg Oral tab 1 tab once daily [Active]; propranolol 80 mg Oral tab 1 tab 2 times per day [Active]; spironolactone 25 mg Oral tab 1 tab once daily [Active]; zolpidem 10 mg Oral tab once daily [Active]; - PMHx: 18:15 Anxiety; Arrythmia; Bipolar disorder; depression, anxiety, insomnia; fatty liver; Gout; hb High Cholesterol; Hypertension; Schizophrenia; - PSHx: 18:15 section; Cholecystectomy; hb - Immunization history:: Adult Immunizations unknown. - Social history:: Smoking status: Patient denies any tobacco usage or history of. ROS: 18:16 Constitutional: Negative for fever, chills, and weight loss. [facility] 18:16 Cardiovascular: Positive for chest pain. 18:16 Back: Positive for radiated pain. 18:16 All other systems are negative. Exam: 18:16 Constitutional: This is a well developed, well nourished patient who is awake, alert, jmm and in no acute distress. Head/Face: atraumatic. Eyes: EOMI, no conjunctival erythema appreciated ENT: Moist Mucus Membranes Neck: Trachea midline, Supple Chest/axilla: Normal chest wall appearance and motion. Cardiovascular: Regular rate and rhythm. No edema appreciated Respiratory: Normal respirations, no respiratory distress appreciated Abdomen/GI: Non distended Back: Normal ROM Skin: General appearance color normal MS/ Extremity: Moves all extremities, no obvious deformities appreciated, no edema noted to the lower extremities Neuro: Awake and alert Psych: Behavior is normal, Mood is normal, Patient is cooperative and pleasant Vital Signs: 18:13 BP 162 / 73; Pulse 79; Resp 16; Temp 97.8; Pulse Ox 100% on R/A; Weight 100.7 kg; hb Height 5 ft. 7 in. (170.18 cm); Pain 9/10; 19:00 BP 127 / 69; Pulse 74; Resp 18; Pulse Ox 100% ; kb3 20:00 BP 121 / 57; Pulse 69; Resp 18; Pulse Ox 100% ; kb3 23:00 BP 131 / 72; Pulse 71; Resp 20; Pulse Ox 100% ; kb3 01/30 00:00 BP 133 / 56; Pulse 72; Resp 18; Pulse Ox 98% on R/A; jb4 01:00 BP 127 / 70; Pulse 77; Resp 18; Pulse Ox 96% on R/A; jb4 12 18:13 Body Mass Index 34.77 (100.70 kg, 170.18 cm) hb MDM: 01/29 18:16 Patient medically screened. [facility] 01/30 00:04 ED course: Lab chemistry down, unknown when would return. Lab contacted and initially rn stated that labs were sent to [place] but never reported. Called lab back and they request another sample be sent and they can now run it. This is reason for long visit. . 01:07 Differential diagnosis: acute pericarditis, anxiety, chest wall pain, costochondritis, rn gastroesophageal reflux disease (GERD), pleurisy, pneumonia, pneumothorax, pulmonary embolus. Data reviewed: vital signs, nurses notes, lab test result(s), EKG, radiologic studies, CT scan, plain films, and as a result, I will discharge patient. Counseling: I had a detailed discussion with the patient and/or guardian regarding: the historical points, exam findings, and any diagnostic results supporting the discharge/admit diagnosis, lab results, radiology results, the need for outpatient follow up, to return to the emergency department if symptoms worsen or persist or if there are any questions or concerns that arise at home. Response to treatment: the patient's symptoms have markedly improved after treatment, and as a result, I will discharge patient. 01/29 18:17 Order name: Basic Metabolic Panel; Complete Time: 01:07 [facility] 01/29 18:17 Order name: CBC with Diff; Complete Time: 19:17 [facility] 01/29 18:17 Order name: D-Dimer; Complete Time: 19:25 [facility] 01/29 18:17 Order name: LFT's; Complete Time: 01:07 [facility] 01/29 18:17 Order name: Magnesium; Complete Time: 01:07 [facility] 01/29 18:17 Order name: NT PRO-BNP; Complete Time: 01:07 [facility] 01/29 18:17 Order name: PT-INR; Complete Time: 19:25 [facility] 01/29 18:17 Order name: Troponin HS; Complete Time: 01:07 [facility] 01/29 18:17 Order name: XRAY Chest (1 view); Complete Time: 19:37 [facility] 01/29 18:17 Order name: EKG; Complete Time: 18:18 [facility] 01/29 19:27 Order name: CT Chest For PE Angio; Complete Time: 22:03 [facility] 01/29 23:08 Order name: CREATININE WHOLE BLOOD; Complete Time: 23:30 [facility] 01/29 18:17 Order name: Cardiac monitoring; Complete Time: 18:25 [facility] 01/29 18:17 Order name: EKG - Nurse/Tech; Complete Time: 18:41 [facility] 01/29 18:17 Order name: IV Saline Lock; Complete Time: 18:41 [facility] 01/29 18:17 Order name: Labs collected and sent; Complete Time: 18:41 [facility] 01/29 18:17 Order name: O2 Per Protocol; Complete Time: 18:25 [facility] 01/29 18:17 Order name: O2 Sat Monitoring; Complete Time: 18:25 jm Administered Medications: 01/29 18:56 Drug: GI Cocktail without - (Maalox Suspension 30 ml, Lidocaine Liquid 2 % 15 kb3 ml) Route: PO; 19:30 Follow up: Response: No adverse reaction; Pain is decreased kb3 19:21 Drug: Ketorolac 30 mg Route: IVP; Site: right antecubital; kb3 20:20 Follow up: Response: No adverse reaction; Pain is decreased kb3 Disposition: 01/30 05:44 Co-signature as Attending Physician, Jean Carlos Andrews MD. rn Disposition Summary: 01/30/22 01:08 Discharge Ordered Location: Home rn Problem: new rn Symptoms: have improved rn Condition: Stable rn Diagnosis - Chest pain, unspecified rn Followup: rn - With: Private Physician - When: As needed - Reason: Recheck today's complaints, Re-evaluation by your physician Discharge Instructions: - Discharge Summary Sheet rn - Nonspecific Chest Pain, Adult rn Forms: - Medication Reconciliation Form rn - Thank You Letter rn - Antibiotic rn case mgr - Prescription Opioid Use rn Signatures: Dispatcher [employer] EDMS Milton Vaughn PA PA jmm Nieto, Roman, MD MD rn Baxter, Heather, RN RN Anat Shelley, RN RN kb3
--- NOTE | 2022-01-30 01:08 | ER ---
Nurse's Notes [facility] Name: Shivani Lagunas Age: 46 yrs Sex: Female : 1975 Arrival Date: 01/29/2022 Time: 18:01 Bed 20 Private MD: Diagnosis: Chest pain, unspecified Presentation: 01/29 18:13 Chief complaint: Intermittent substernal chest pain that radiates to back since hb yesterday. Coronavirus screen: At this time, the client does not indicate any symptoms associated with coronavirus-19. Ebola Screen: No symptoms or risks identified at this time. Initial Sepsis Screen: Does the patient meet any 2 criteria? No. Patient's initial sepsis screen is negative. Does the patient have a suspected source of infection? No. Patient's initial sepsis screen is negative. Risk Assessment: Do you want to hurt yourself or someone else? Patient reports no desire to harm self or others. Onset of symptoms was January 28, 2022. 18:13 Method Of Arrival: Ambulatory hb 18:13 Acuity: ALICIA 3 hb Historical: - Allergies: 18:15 Sulfa (Sulfonamide Antibiotics); hb - Home Meds: 18:15 allopurinol 100 mg Oral tab 1 tab once daily [Active]; alprazolam 0.5 mg Oral tab hb [Active]; atorvastatin 10 mg Oral tab 1 tab once daily [Active]; clonazepam 2 mg Oral tab nightly [Active]; duloxetine 90 mg Oral cpDR 1 cap once daily [Active]; lamotrigine Oral [Active]; lithium carbonate 600 mg Oral cap daily [Active]; losartan 100 mg Oral tab 1 tab once daily [Active]; propranolol 80 mg Oral tab 1 tab 2 times per day [Active]; spironolactone 25 mg Oral tab 1 tab once daily [Active]; zolpidem 10 mg Oral tab once daily [Active]; - PMHx: 18:15 Anxiety; Arrythmia; Bipolar disorder; depression, anxiety, insomnia; fatty liver; Gout; hb High Cholesterol; Hypertension; Schizophrenia; - PSHx: 18:15 section; Cholecystectomy; hb - Immunization history:: Adult Immunizations unknown. - Social history:: Smoking status: Patient denies any tobacco usage or history of. Screenin:30 [facility] ED Fall Risk Assessment (Adult) History of falling in the last 3 months, kb3 including since admission No falls in past 3 months (0 pts) Confusion or Disorientation No (0 pts) Intoxicated or Sedated No (0 pts) Impaired Gait No (0 pts) Mobility Assist Device Used No (0 pt) Altered Elimination No (0 pt) Score/Fall Risk Level 0 - 2 = Low Risk Oriented to surroundings, Maintained a safe environment, Educated pt \T\ family on fall prevention, incl call for assistance when getting out of bed, Assessed \T\ reinforced patient's understanding of fall precautions. 01/30 00:00 Abuse screen: Denies threats or abuse. Nutritional screening: No deficits noted. jb4 Tuberculosis screening: No symptoms or risk factors identified. Fall Risk No fall in past 12 months (0 pts). IV access (20 points). Total Rodriguez Fall Scale indicates No Risk (0-24 pts). Assessment: 01/29 18:30 Reassessment: Patient appears in no apparent distress at this time. General: Appears in kb3 no apparent distress. comfortable, Behavior is calm, cooperative, Received care of pt from triage. Pt reports intermittent sub-sternal chest pain radiating through to her upper back since yesterday. Denies N/V/cough/fever. 18:30 Pain: Complains of pain in mid-sternal area Pain radiates to thoracic area Pain kb3 currently is 8 out of 10 on a pain scale. Quality of pain is described as sharp, Pain began 1 day ago. Cardiovascular: Reports chest pain, Denies diaphoresis, nausea, shortness of breath, vomiting, Patient's skin is warm and dry. Pulses are all present. are 2+ in right radial artery and left radial artery Rhythm is sinus rhythm. Respiratory: No deficits noted. Airway is patent Respiratory effort is even, unlabored, Breath sounds are clear. 22:30 Reassessment: Patient appears in no apparent distress at this time. No changes from kb3 previously documented assessment. Patient and/or family updated on plan of care and expected duration. Pain level reassessed. General: Updated pt regarding continued delay of lab results due to a machine malfunction in lab. Pt states understanding. No needs at this time. 01/30 00:00 Reassessment: Patient appears in no apparent distress at this time. Patient and/or jb4 family updated on plan of care and expected duration. Pain level reassessed. Patient is alert, oriented x 3, equal unlabored respirations, skin warm/dry/pink. 01:00 Reassessment: Patient appears in no apparent distress at this time. Patient and/or jb4 family updated on plan of care and expected duration. Pain level reassessed. Patient is alert, oriented x 3, equal unlabored respirations, skin warm/dry/pink. Vital Signs: 01/29 18:13 BP 162 / 73; Pulse 79; Resp 16; Temp 97.8; Pulse Ox 100% on R/A; Weight 100.7 kg; hb Height 5 ft. 7 in. (170.18 cm); Pain 9/10; 19:00 BP 127 / 69; Pulse 74; Resp 18; Pulse Ox 100% ; kb3 20:00 BP 121 / 57; Pulse 69; Resp 18; Pulse Ox 100% ; kb3 23:00 BP 131 / 72; Pulse 71; Resp 20; Pulse Ox 100% ; kb3 12 00:00 BP 133 / 56; Pulse 72; Resp 18; Pulse Ox 98% on R/A; jb4 01:00 BP 127 / 70; Pulse 77; Resp 18; Pulse Ox 96% on R/A; jb4 01/29 18:13 Body Mass Index 34.77 (100.70 kg, 170.18 cm) hb ED Course: 01/29 18:01 Patient arrived in ED. as 18:02 Milton Vaughn PA is PHCP. [facility] 18:02 Sinan Meier MD is Attending Physician. [facility] 18:15 Triage completed. hb 18:16 Arm band placed on. hb 18:30 No provider procedures requiring assistance completed. Patient maintains SpO2 kb3 saturation greater than 95% on room air. 18:41 Basic Metabolic Panel Sent. mm9 18:41 CBC with Diff Sent. mm9 18:41 D-Dimer Sent. mm9 18:41 LFT's Sent. mm9 18:41 Magnesium Sent. mm9 18:41 NT PRO-BNP Sent. mm9 18:41 PT-INR Sent. mm9 18:41 Troponin HS Sent. mm9 18:42 Patient has correct armband on for positive identification. Placed in gown. Bed in low mm9 position. Call light in reach. Side rails up X 1. Warm blanket given. Client placed on continuous cardiac and pulse oximetry monitoring. NIBP monitoring applied. bus driver/monitor on. Pulse ox on. NIBP on. 18:42 Initial lab(s) drawn, by me, sent to lab. EKG done, by ED staff, reviewed by Sinan Meier MD. Inserted saline lock: 20 gauge in right antecubital area, using aseptic technique. Blood collected. 18:50 XRAY Chest (1 view) In Process Unspecified. EDMS 18:56 Anat Avila, RN is Primary Nurse. kb3 19:52 Attending Physician role handed off by Sinan Meier MD rn 19:52 Jean Carlos Andrews MD is Attending Physician. rn 20:[address] kb3 20:51 CT Chest For PE Angio In Process Unspecified. EDMS 21:05 Patient moved back from CT. kb3 01/30 01:28 IV discontinued, intact, bleeding controlled, No redness/swelling at site. Pressure jb4 dressing applied. Administered Medications: 01/29 18:56 Drug: GI Cocktail without - (Maalox Suspension 30 ml, Lidocaine Liquid 2 % 15 kb3 ml) Route: PO; 19:30 Follow up: Response: No adverse reaction; Pain is decreased kb3 19:21 Drug: Ketorolac 30 mg Route: IVP; Site: right antecubital; kb3 20:20 Follow up: Response: No adverse reaction; Pain is decreased kb3 Medication: 18:30 VIS not applicable for this client. kb3 Outcome: 01/30 01:08 Discharge ordered by . rn 01:28 Discharged to home ambulatory. jb4 01:28 Condition: stable 01:28 Discharge instructions given to patient, Instructed on discharge instructions, follow up and referral plans. Demonstrated understanding of instructions, follow-up care. 01:28 Patient left the ED. jb4 Signatures: Dispatcher [employer] EDSC Milton Vaughn PA PA jmm Martinez, Amelia as Jean Carlos Andrews MD MD rn Baxter, Heather, RN RN hb Bryson, James, RN RN jbAnat Damico, Mercedez Chavarria RN Corrections: (The following items were deleted from the chart) 01/29 18:16 18:13 BP 162 / 73; Pulse 79bpm; Resp 16bpm; Pulse Ox 100% RA; Temp 97.8F; 102.06 kg; hb Height 5 ft. 7 in.; BMI: 35.2; Pain 7/10; hb
[2022-01-30 01:58] VITALS: TEMP 97.8
[2022-01-30 02:03] VITALS: BP 127/70; O2SAT 96
--- NOTE | 2022-01-31 15:18 | EKG ---
Test Date: 2022-01-29 Test Time: 18:28:45 [employer] Supervisor: KYLE MEASUREMENT RESULTS: Intervals: Rate: 70 AK: 164 QRSD: 94 QT: 426 QTc: 460 [place]: P: 55 AK: 164 QRS: 31 T: 18 INTERPRETIVE STATEMENTS: Normal sinus rhythm Normal ECG Compared to ECG 07/21/2021 08:48:22 ST (T wave) deviation no longer present Electronically Signed On 01-31-22 15:16:18 WORK ADJUSTMENT INSTRUCTOR by Sony Guillermo
== END 2022-01-30 01:28 | disposition home or self-care (01) ==
LOC: ER 18:00
DX: R07.9 Chest pain, unspecified (principal); I10 Essential (primary) hypertension; Z88.2 Allergy status to sulfonamides
CPT/HCPCS: 36415; 71045; 71275; 80048; 80076; 82565; 83735; 83880; 84484; 85025; 85379; 85610; 93005; 96374; 99285; Q9967

== ENCOUNTER 2022-02-11 02:47 | Emergency (ER) | payer SELFPAY ==
--- OUTSIDE RECORDS SUMMARY | 2022-02-11 02:52 | XMS REPORT | Continuity of Care Document ---
:1975 Author Organization [facility] t Address [address] [place] [address] Dr. Liang [address] [place] [address] Care Team Providers Name Role Phone PCP, PATIENT DOES NOT HAVE A Primary Care Physician Unavaila UNA Thorne Attending Clinician Unavailable UNA HESTER Attending Clinician Unavailable Doctor Unassigned, [employer] Attending Clinician Unavailable IGOR SAAVEDRA Attending Clinician [...] Number Effective Date Expiration Date S ource MEDICAID SSI PENDING 2021 PENDING 00:00:00 Problems Condition Condition Condition Status Onset Resolution Last Treating Co mments Source Name Details Category Date Date Treatment Clinician Date No known No known Disease Unive rs active active ity of problems problems [facility] Allergies, Adverse Reactions, Alerts Allergy Allergy [...] Source Exposure to 2022-01-01 2022-01-11 Not sure [facility] SARS-CoV-2 00:00:00 11:09:00 [facility] (event) [place] Tobacco use and 2021-08-24 2021-08-24 Smokeless tobacco Un iversity of exposure 00:00:00 00:00:00 non-user [facility] Sex Ass[birth year] At [birth year] [facility] 00:00:00 00:00:00 [facility] Smoking Status Start Date Stop Date Source Never smoked tobacco [facility] Medications Ordered Filled Start Stop Current Ordering Indication Dosage Frequency Signature Comments Components Source Medication Medication Date Date Medication? Clinician (SIG) Name Name DULoxetine 2021-02 Yes [id number] 60mg Take 1 U nivers 60 mg 2-28 capsule by ity of capsule 00:00: mouth in [place] [address] the Medical morning Branch and 1 capsule in the evening. lamoTRIgine 2021-02 Yes [id number] 100mg Take 1 [facility] 100 mg 2-22 tablet by ity of tablet 00:00: mouth in [place] 00 the Medical morning Branch and 1 tablet in the evening. lamoTRIgine 2021-02 Yes [id number] 100mg Take 1 [facility] 100 mg 2-22 tablet by ity of tablet 00:00: mouth in [place] 00 the Medical morning Branch and 1 tablet in the evening. traZODone 2021-02 Yes [id number] 50mg Take 1 U nivers 50 mg 1-30 tablet by ity of tablet 00:00: mouth at [place] [address] bedtime. Medical May cut Branch tablet in half. lamoTRIgine 2021-02 Yes [id number] 100mg Take 1 [facility] 100 mg 1-30 tablet by ity of tablet 00:00: mouth in [place] 00 the Medical morning Branch and 1 tablet in the evening. traZODone 2021-02 Yes [id number] 50mg Take 1 U nivers 50 mg 1-30 tablet by ity of tablet 00:00: mouth at [place] [address] bedtime. Medical May cut Branch tablet in half. lamoTRIgine 2021-02 Yes [id number] 100mg Take 1 [facility] 100 mg 1-30 tablet by ity of tablet 00:00: mouth in [place] 00 the Medical morning Branch and 1 tablet in the evening. traZODone 2021-02 Yes [id number] 50mg Take 1 U nivers 50 mg 1-30 tablet by ity of tablet 00:00: mouth at [place] [address] bedtime. Medical May cut Branch tablet in half. lamoTRIgine 2021-02 Yes [id number] 100mg Take 1 [facility] 100 mg 1-30 tablet by ity of tablet 00:00: mouth in [place] 00 the Medical morning Branch and 1 tablet in the evening. traZODone 2021-02 Yes [id number] 50mg Take 1 U nivers 50 mg 1-30 tablet by ity of tablet 00:00: mouth at [place] [address] bedtime. Medical May cut Branch tablet in half. traZODone 2021-02 Yes [id number] 50mg Take 1 U nivers 50 mg 1-30 tablet by ity of tablet 00:00: mouth at [place] 00 bedtime. Medical May cut Branch tablet in half. lamoTRIgine 2021-02- No [id number] 100mg Take 1 [facility] 100 mg 1-30 12-22 tablet by ity of tablet 00:00: 00:00 mouth in [place] 00 :00 the Medical morning Branch and 1 tablet in the evening. lamoTRIgine 2021-02- No [id number] 100mg Take 1 [facility] 100 mg 1-30 12-22 tablet by ity of tablet 00:00: 00:00 mouth in [place] 00 :00 the Medical morning Branch and 1 tablet in the evening. DULoxetine 2021-02 Yes [id number] 60mg Take 1 U nivers 60 mg 1-28 capsule by ity of capsule 00:00: mouth in [place] 00 the Medical morning Branch and 1 capsule in the evening. clonazePAM 2021-02 Yes [id number] Take 1 U nivers 1 mg tablet 1-28 tablet by ity of 00:00: mouth [place] 00 twice Medical daily as Branch needed for anxiety. DULoxetine 2021-02 Yes [id number] 60mg Take 1 U nivers 60 mg 1-28 capsule by ity of capsule 00:00: mouth in [place] 00 the Medical morning Branch and 1 capsule in the evening. clonazePAM 2021-02 Yes [id number] Take 1 U nivers 1 mg tablet 1-28 tablet by ity of 00:00: mouth [place] 00 twice Medical daily as Branch needed for anxiety. DULoxetine 2021-02 Yes [id number] 60mg Take 1 U nivers 60 mg 1-28 capsule by ity of capsule 00:00: mouth in [place] 00 the Medical morning Branch and 1 capsule in the evening. clonazePAM 2021-02 Yes [id number] Take 1 U nivers 1 mg tablet 1-28 tablet by ity of 00:00: mouth [place] 00 twice Medical daily as Branch needed for anxiety. DULoxetine 2021-02 Yes [id number] 60mg Take 1 U nivers 60 mg 1-28 capsule by ity of capsule 00:00: mouth in [place] 00 the Medical morning Branch and 1 capsule in the evening. clonazePAM 2021-02 Yes [id number] Take 1 U nivers 1 mg tablet 1-28 tablet by ity of 00:00: mouth [place] 00 twice Medical daily as Branch needed for anxiety. DULoxetine 2021-02 Yes [id number] 60mg Take 1 U nivers 60 mg 1-28 capsule by ity of capsule 00:00: mouth in [place] 00 the Medical morning Branch and 1 capsule in the evening. clonazePAM 2021-02 Yes [id number] Take 1 U nivers 1 mg tablet 1-28 tablet by ity of 00:00: mouth [place] 00 twice Medical daily as Branch needed for anxiety. DULoxetine 2021-02 Yes [id number] 60mg Take 1 U nivers 60 mg 1-28 capsule by ity of capsule 00:00: mouth in [place] 00 the Medical morning Branch and 1 capsule in the evening. clonazePAM 2021-02 Yes [id number] Take 1 U nivers 1 mg tablet 1-28 tablet by ity of 00:00: mouth [place] 00 twice Medical daily as Branch needed for anxiety. clonazePAM 2021-02 Yes [id number] Take 1 U nivers 1 mg tablet 1-28 tablet by ity of 00:00: mouth [place] 00 twice Medical daily as Branch needed for anxiety. DULoxetine 2021-02- No [id number] 60mg Take 1 [facility] 60 mg 1-28 12-27 capsule by ity of capsule 00:00: 00:00 mouth in [place] 00 :00 the Medical morning Branch and 1 capsule in the evening. traZODone 2021-02 Yes [id number] 50mg Take 1 U nivers 50 mg 1-22 tablet by ity of tablet 00:00: mouth at [place] 00 bedtime. Medical May cut Branch tablet in half. traZODone 2021-02 Yes [id number] 50mg Take 1 U nivers 50 mg 1-22 tablet by ity of tablet 00:00: mouth at [place] 00 bedtime. Medical May cut Branch tablet in half. traZODone 2021-02 Yes [id number] 50mg Take 1 U nivers 50 mg 1-22 tablet by ity of tablet 00:00: mouth at [place] 00 bedtime. Medical May cut Branch tablet in half. traZODone 2021-02- No [id number] 50mg Take 1 [facility] 50 mg 1-22 11-30 tablet by ity of tablet 00:00: 00:00 mouth at [place] 00 :00 bedtime. Medical May cut Branch tablet in half. traZODone 2021-02- No [id number] 50mg Take 1 [facility] 50 mg 1-22 11-30 tablet by ity of tablet 00:00: 00:00 mouth at [place] 00 :00 bedtime. Medical May cut Branch tablet in half. traZODone 2021-02- No [id number] 50mg Take 1 [facility] 50 mg 1-22 11-30 tablet by ity of tablet 00:00: 00:00 mouth at [place] 00 :00 bedtime. Medical May cut Branch tablet in half. traZODone 2021-02- No [id number] 50mg Take 1 [facility] 50 mg 1-22 11-30 tablet by ity of tablet 00:00: 00:00 mouth at [place] 00 :00 bedtime. Medical May cut Branch tablet in half. traZODone 2021-02- No [id number] 50mg Take 1 [facility] 50 mg 1-22 11-30 tablet by ity of tablet 00:00: 00:00 mouth at [place] 00 :00 bedtime. Medical May cut Branch tablet in half. DULoxetine 2021-02 Yes [id number] 60mg Take 1 U nivers 60 mg 0-25 capsule by ity of capsule 00:00: mouth in [place] 00 the Medical morning Branch and 1 capsule in the evening. DULoxetine 2021-02 Yes [id number] 60mg Take 1 U nivers 60 mg 0-25 capsule by ity of capsule 00:00: mouth in [place] 00 the Medical morning Branch and 1 capsule in the evening. DULoxetine 2021-02 Yes [id number] 60mg Take 1 U nivers 60 mg 0-25 capsule by ity of capsule 00:00: mouth in [place] 00 the Medical morning Branch and 1 capsule in the evening. DULoxetine 2021-02- No [id number] 60mg Take 1 [facility] 60 mg 0-25 11-28 capsule by ity of capsule 00:00: 00:00 mouth in [place] 00 :00 the Medical morning Branch and 1 capsule in the evening. DULoxetine 2021-02- No [id number] 60mg Take 1 [facility] 60 mg 0-25 11-28 capsule by ity of capsule 00:00: 00:00 mouth in [place] 00 :00 the Medical morning Branch and 1 capsule in the evening. DULoxetine 2021-02- No [id number] 60mg Take 1 [facility] 60 mg 0-25 11-28 capsule by ity of capsule 00:00: 00:00 mouth in [place] 00 :00 the Medical morning Branch and 1 capsule in the evening. DULoxetine 2021-02- No [id number] 60mg Take 1 [facility] 60 mg 0-25 11-28 capsule by ity of capsule 00:00: 00:00 mouth in [place] 00 :00 the Medical morning Branch and 1 capsule in the evening. DULoxetine 2021-02- No [id number] 60mg Take 1 [facility] 60 mg 0-25 11-28 capsule by ity of capsule 00:00: 00:00 mouth in [place] 00 :00 the Medical morning Branch and 1 capsule in the evening. clonazePAM 2021-02 Yes [id number] Take 1 U nivers 1 mg tablet 0-20 tablet by ity of 00:00: mouth [place] 00 twice Medical daily as Branch needed for anxiety. lithium 600 2021-02 Yes [id number] 600mg Take 1 Univers mg capsule 0-20 capsule by ity of 00:00: mouth in [place] 00 the Medical morning Branch and 1 capsule in the evening. lamoTRIgine 2021-02 Yes [id number] 50mg Take 2 [facility] 25 mg 0-20 tablets by ity of tablet 00:00: mouth in [place] 00 the Medical morning Branch and 2 tablets in the evening. clonazePAM 2021-02 Yes [id number] Take 1 U nivers 1 mg tablet 0-20 tablet by ity of 00:00: mouth [place] 00 twice Medical daily as Branch needed for anxiety. lithium 600 2021-02 Yes [id number] 600mg Take 1 [facility] mg capsule 0-20 capsule by ity of 00:00: mouth in [place] 00 the Medical morning Branch and 1 capsule in the evening. lamoTRIgine 2021-02 Yes [id number] 50mg Take 2 [facility] 25 mg 0-20 tablets by ity of tablet 00:00: mouth in [place] 00 the Medical morning Branch and 2 tablets in the evening. clonazePAM 2021-02 Yes [id number] Take 1 U nivers 1 mg tablet 0-20 tablet by ity of 00:00: mouth [place] 00 twice Medical daily as Branch needed for anxiety. lithium 600 2021-1 Yes [id number] 600mg Take 1 [facility] mg capsule 0-20 capsule by ity of 00:00: mouth in [place] 00 the Medical morning Branch and 1 capsule in the evening. lamoTRIgine 2021- Yes [id number] 50mg Take 2 [facility] 25 mg 0-20 tablets by ity of tablet 00:00: mouth in [place] [address] the Medical morning Branch and 2 tablets in the evening. lithium 600 2021-1 Yes [id number] 600mg Take 1 [facility] mg capsule 0-20 capsule by ity of 00:00: mouth in [place] [address] the Medical morning Branch and 1 capsule in the evening. lamoTRIgine 2021-02 Yes [id number] 50mg Take 2 [facility] 25 mg 0-20 tablets by ity of tablet 00:00: mouth in [place] [address] the Medical morning Branch and 2 tablets in the evening. lithium 600 2021- Yes [id number] 600mg Take 1 [facility] mg capsule 0-20 capsule by ity of 00:00: mouth in [place] [address] the Medical morning Branch and 1 capsule in the evening. lamoTRIgine 2021-02 Yes [id number] 50mg Take 2 [facility] 25 mg 0-20 tablets by ity of tablet 00:00: mouth in [place] [address] the Medical morning Branch and 2 tablets in the evening. lithium 600 2021-02 Yes [id number] 600mg Take 1 [facility] mg capsule 0-20 capsule by ity of 00:00: mouth in [place] [address] the Medical morning Branch and 1 capsule in the evening. lithium 600 2021-02 Yes [id number] 600mg Take 1 [facility] mg capsule 0-20 capsule by ity of 00:00: mouth in [place] [address] the Medical morning Branch and 1 capsule in the evening. lithium 600 2021-02 Yes [id number] 600mg Take 1 [facility] mg capsule 0-20 capsule by ity of 00:00: mouth in [place] [address] the Medical morning [place] and 1 capsule in the evening. lithium 600 2021-02 Yes [id number] 600mg Take 1 [facility] mg capsule 0-20 capsule by ity of 00:00: mouth in [place] [address] the Medical morning [place] and 1 capsule in the evening. lithium 600 2021-02 Yes [id number] 600mg Take 1 [facility] mg capsule 0-20 capsule by ity of 00:00: mouth in [place] [address] the Medical morning [place] and 1 capsule in the evening. lamoTRIgine 2021-02- No [id number] 50mg Take 2 Univers 25 mg 0-20 11-30 tablets by ity of tablet 00:00: 00:00 mouth in [place] 00 :00 the Medical morning Branch and 2 tablets in the evening. lamoTRIgine 2021-2021- No [id number] 50mg Take 2 Univers 25 mg 0-20 11-30 tablets by ity of tablet 00:00: 00:00 mouth in [place] 00 :00 the Medical morning [place] and 2 tablets in the evening. lamoTRIgine 2021-02- No [id number] 50mg Take 2 Univers 25 mg 0-20 11-30 tablets by ity of tablet 00:00: 00:00 mouth in [place] 00 :00 the Medical morning Branch and 2 tablets in the evening. lamoTRIgine 2021-02- No [id number] 50mg Take 2 Univers 25 mg 0-20 11-30 tablets by ity of tablet 00:00: 00:00 mouth in [place] 00 :00 the Medical morning Branch and 2 tablets in the evening. lamoTRIgine 2021-02- No [id number] 50mg Take 2 Univers 25 mg 0-20 11-30 tablets by ity of tablet 00:00: 00:00 mouth in [place] 00 :00 the Medical morning Branch and 2 tablets in the evening. clonazePAM 2021-02- No [id number] Take 1 Univers 1 mg tablet 0-20 11-28 tablet by it y of 00:00: 00:00 mouth [place] 00 :00 twice Medical daily as Branch needed for anxiety. clonazePAM 2021-02- No [id number] Take 1 Univers 1 mg tablet 0-20 11-28 tablet by it y of 00:00: 00:00 mouth [place] 00 :00 twice Medical daily as Branch needed for anxiety. clonazePAM 2021-02- No [id number] Take 1 Univers 1 mg tablet 0-20 11-28 tablet by it y of 00:00: 00:00 mouth [place] 00 :00 twice Medical daily as Branch needed for anxiety. clonazePAM 2021-02- No [id number] Take 1 Univers 1 mg tablet 0-20 11-28 tablet by it y of 00:00: 00:00 mouth [place] 00 :00 twice Medical daily as Branch needed for anxiety. clonazePAM 2021-02- No [id number] Take 1 Univers 1 mg tablet 0-20 11-28 tablet by it y of 00:00: 00:00 mouth [place] 00 :00 twice Medical daily as Branch needed for anxiety. lamoTRIgine 2021-0 Yes [id number] 50mg Take 2 Univers 25 mg 8-26 tablets by ity of tablet 00:00: mouth in [place] 00 the Medical morning Branch and 2 tablets in the evening. lamoTRIgine 2021-2- No [id number] 50mg Take 2 [facility] 25 mg 8-26 10-19 tablets by ity of tablet 00:00: 00:00 mouth in [place] 00 :00 the Medical morning Branch and 2 tablets in the evening. lamoTRIgine 2021-0 2021- No [id number] 50mg Take 2 Univers 25 mg 8-26 10-19 tablets by ity of tablet 00:00: 00:00 mouth in [place] 00 :00 the Medical morning Branch and 2 tablets in the evening. clonazePAM 2021-0 Yes [id number] Take no Univers 1 mg tablet 8-25 more than ity of 00:00: 1 mg twice [place] 00 daily as Medical needed for Branch anxiety lithium 600 2021-0 Yes [id number] 600mg Take 1 [facility] mg capsule 8-25 capsule by ity of 00:00: mouth in [place] 00 the Medical morning Branch and 1 capsule in the evening. clonazePAM 2021-0 2021- No [id number] Take no Univers 1 mg tablet 8-25 10-19 more than it y of 00:00: 00:00 1 mg twice [place] 00 :00 daily as Medical needed for Branch anxiety lithium 600 2021-0 2021- No [id number] 600mg Take 1 Univers mg capsule 8-25 10-19 capsule by it y of 00:00: 00:00 mouth in [place] 00 :00 the Medical morning Branch and 1 capsule in the evening. clonazePAM 2021-0 2021- No [id number] Take no Univers 1 mg tablet 8-25 10-19 more than it y of 00:00: 00:00 1 mg twice [place] 00 :00 daily as Medical needed for Branch anxiety lithium 600 2-0 2- No [id number] 600mg Take 1 [facility] mg capsule 8-25 10-19 capsule by it y of 00:00: 00:00 mouth in [place] 00 :00 the Medical morning Branch and 1 capsule in the evening. Lamotrigine 2021-0 2021- No [id number] 50mg Take 1 [facility] 50 mg 8-25 08-26 tablet by ity of tablet 00:00: 00:00 mouth in [place] 00 :00 the Medical morning Branch and 1 tablet in the evening. Lamotrigine 2021-0 2021- No [id number] 50mg Take 1 [facility] 50 mg 8-11 08-25 tablet by ity of tablet 00:00: 00:00 mouth in [place] 00 :00 the Medical morning Branch and 1 tablet in the evening. DULoxetine 2021-0 Yes [id number] 60mg Take 1 U nivers 60 mg 7-27 capsule by ity of capsule 00:00: mouth in [place] 00 the Medical morning Branch and 1 capsule in the evening. DULoxetine 2021- No [id number] 60mg Take 1 [facility] 60 mg 7-27 10-24 capsule by ity of capsule 00:00: 00:00 mouth in [place] 00 :00 the Medical morning Branch and 1 capsule in the evening. DULoxetine 2021- No [id number] 60mg Take 1 [facility] 60 mg 7-27 10-24 capsule by ity of capsule 00:00: 00:00 mouth in [place] 00 :00 the Medical morning Branch and 1 capsule in the evening. DULoxetine 2021- No [id number] 60mg Take 1 [facility] 60 mg 7-27 10-24 capsule by ity of capsule 00:00: 00:00 mouth in [place] 00 :00 the Medical morning Branch and 1 capsule in the evening. Lamotrigine 2021- No [id number] 50mg Take 1 [facility] 50 mg 7-18 08-11 tablet by ity of tablet 00:00: 00:00 mouth in [place] 00 :00 the Medical morning Branch and 1 tablet in the evening. lithium 600 2021- No [id number] 600mg Take 1 [facility] mg capsule 7-13 08-25 capsule by it y of 00:00: 00:00 mouth in [place] 00 :00 the Medical morning Branch and 1 capsule in the evening. traZODone 2021-0 Yes [id number] 50mg Take 1 U nivers 50 mg 6-28 tablet by ity of tablet 00:00: mouth at [place] [address] bedtime. Medical May cut Branch tablet in half. DULoxetine 2021-0 Yes [id number] 60mg Take 1 U nivers 60 mg 6-28 capsule by ity of capsule 00:00: mouth 2 [place] 00 (two) Medical times Branch daily. traZODone 2021-0 Yes [id number] 50mg Take 1 U nivers 50 mg 6-28 tablet by ity of tablet 00:00: mouth at [place] [address] bedtime. Medical May cut Branch tablet in half. DULoxetine 2021-0 Yes [id number] 60mg Take 1 U nivers 60 mg 6-28 capsule by ity of capsule 00:00: mouth 2 [place] 00 (two) Medical times Branch daily. traZODone Yes [id number] 50mg Take 1 U nivers 50 mg 6-28 tablet by ity of tablet 00:00: mouth at [place] 00 bedtime. Medical May cut Branch tablet in half. DULoxetine Yes [id number] 60mg Take 1 U nivers 60 mg 6-28 capsule by ity of capsule 00:00: mouth 2 [place] 00 (two) Medical times Branch daily. DULoxetine Yes [id number] 60mg Take 1 U nivers 60 mg 6-28 capsule by ity of capsule 00:00: mouth 2 [place] 00 (two) Medical times Branch daily. traZODone 2021- No [id number] 50mg Take 1 [facility] 50 mg 6-28 11-21 tablet by ity of tablet 00:00: 00:00 mouth at [place] 00 :00 bedtime. Medical May cut Branch tablet in half. traZODone 2021- No [id number] 50mg Take 1 [facility] 50 mg 6-28 11-21 tablet by ity of tablet 00:00: 00:00 mouth at [place] 00 :00 bedtime. Medical May cut Branch tablet in half. traZODone 2021- No [id number] 50mg Take 1 [facility] 50 mg 6-28 11-21 tablet by ity of tablet 00:00: 00:00 mouth at [place] 00 :00 bedtime. Medical May cut Branch tablet in half. traZODone 2021- No [id number] 50mg Take 1 [facility] 50 mg 6-28 11-21 tablet by ity of tablet 00:00: 00:00 mouth at [place] 00 :00 bedtime. Medical May cut Branch tablet in half. traZODone 2021- No [id number] 50mg Take 1 [facility] 50 mg 6-28 11-21 tablet by ity of tablet 00:00: 00:00 mouth at [place] 00 :00 bedtime. Medical May cut Branch tablet in half. clonazePAM 2021- No [id number] Take no [facility] 1 mg tablet 6-28 08-25 more than it y of 00:00: 00:00 1 mg twice [place] 00 :00 daily as Medical needed for Branch anxiety vitamin Yes [id number] 1000ug Take 1 U nivers B-12 1,000 4-11 tablet by ity of mcg tablet 00:00: mouth [place] 00 daily. Medical Branch cyanocobala 2021-0 Yes [id number] 1000ug 1 mL by Univers min 1,000 4-11 Intramuscu ity of mcg/mL 00:00: lar route [place] injection 00 weekly. Medical Branch vitamin 2021-0 Yes [id number] 1000ug Take 1 U nivers B-12 1,000 4-11 tablet by ity of mcg tablet 00:00: mouth [place] 00 daily. Medical Branch cyanocobala 2021-0 Yes [id number] 1000ug 1 mL by [facility] min 1,000 4-11 Intramuscu ity of mcg/mL 00:00: lar route [place] injection 00 weekly. Medical Branch vitamin 2021-0 Yes [id number] 1000ug Take 1 U nivers B-12 1,000 4-11 tablet by ity of mcg tablet 00:00: mouth [place] 00 daily. Medical Branch cyanocobala 2021-0 Yes [id number] 1000ug 1 mL by [facility] min 1,000 4-11 Intramuscu ity of mcg/mL 00:00: lar route [place] injection 00 weekly. Medical Branch vitamin 2021-0 Yes [id number] 1000ug Take 1 U nivers B-12 1,000 4-11 tablet by ity of mcg tablet 00:00: mouth [place] 00 daily. Medical Branch cyanocobala 2021-0 Yes [id number] 1000ug 1 mL by [facility] min 1,000 4-11 Intramuscu ity of mcg/mL 00:00: lar route [place] injection 00 weekly. Medical Branch vitamin 2021-0 Yes [id number] 1000ug Take 1 U nivers B-12 1,000 4-11 tablet by ity of mcg tablet 00:00: mouth [place] 00 daily. Medical Branch cyanocobala 2021-0 Yes [id number] 1000ug 1 mL by [facility] min 1,000 4-11 Intramuscu ity of mcg/mL 00:00: lar route [place] injection 00 weekly. [facility] Branch vitamin 2021-0 Yes [id number] 1000ug Take 1 U nivers B-12 1,000 4-11 tablet by ity of mcg tablet 00:00: mouth [place] 00 daily. Medical Branch cyanocobala 2021-0 Yes [id number] 1000ug 1 mL by [facility] min 1,000 4-11 Intramuscu ity of mcg/mL 00:00: lar route [place] injection 00 weekly. Medical Branch vitamin 2021-0 Yes [id number] 1000ug Take 1 U nivers B-12 1,000 4-11 tablet by ity of mcg tablet 00:00: mouth [place] 00 daily. Medical Branch cyanocobala 2021-0 Yes [id number] 1000ug 1 mL by [facility] min 1,000 4-11 Intramuscu ity of mcg/mL 00:00: lar route [place] injection 00 weekly. Medical Branch vitamin 2021-0 Yes [id number] 1000ug Take 1 U nivers B-12 1,000 4-11 tablet by ity of mcg tablet 00:00: mouth [place] 00 daily. [facility] Branch cyanocobala 2021-0 Yes [id number] 1000ug 1 mL by Univers min 1,000 4-11 Intramuscu ity of mcg/mL 00:00: lar route [place] injection 00 weekly. Medical Branch vitamin 2021-0 Yes [id number] 1000ug Take 1 U nivers B-12 1,000 4-11 tablet by ity of mcg tablet 00:00: mouth [place] 00 daily. Medical Branch cyanocobala 2021-0 Yes [id number] 1000ug 1 mL by [facility] min 1,000 4-11 Intramuscu ity of mcg/mL 00:00: lar route [place] injection 00 weekly. Medical Branch vitamin 2021-0 Yes [id number] 1000ug Take 1 U nivers B-12 1,000 4-11 tablet by ity of mcg tablet 00:00: mouth [place] 00 daily. Medical Branch cyanocobala 2021-0 Yes [id number] 1000ug 1 mL by [facility] min 1,000 4-11 Intramuscu ity of mcg/mL 00:00: lar route [place] injection 00 weekly. Medical Branch vitamin 2021-0 Yes [id number] 1000ug Take 1 U nivers B-12 1,000 4-11 tablet by ity of mcg tablet 00:00: mouth [place] 00 daily. [facility] Branch cyanocobala 2021-0 Yes [id number] 1000ug 1 mL by Univers min 1,000 4-11 Intramuscu ity of mcg/mL 00:00: lar route [place] injection 00 weekly. Medical Branch losartan 2021-0 Yes 20mg Take 20 mg Uni vers potassium 4-05 by mouth. ity o f (LOSARTAN 09:24: [place] ORAL) [address] [place] [address] FUROSEMIDE 2021-0 Yes 40mg Take 40 mg U nivers ORAL 4-05 by mouth ity of 09:24: daily. [address] losartan 2021-0 Yes 20mg Take 20 mg Uni vers potassium 4-05 by mouth. ity o f (LOSARTAN 09:24: [place] ORAL) [address] [place] [address] FUROSEMIDE 2021-0 Yes 40mg Take 40 mg U nivers ORAL 4-05 by mouth ity of 09:24: daily. [address] losartan 2021-0 Yes 20mg Take 20 mg Uni vers potassium 4-05 by mouth. ity o f (LOSARTAN 09:24: [place] ORAL) [address] [place] [address] FUROSEMIDE 0 Yes 40mg Take 40 mg U nivers ORAL 4-05 by mouth ity of 09:24: daily. [address] losartan 2021-0 Yes 20mg Take 20 mg Uni vers potassium 4-05 by mouth. ity o f (LOSARTAN 09:24: [place] ORAL) [address] [place] [address] FUROSEMIDE 2021-0 Yes 40mg Take 40 mg U nivers ORAL 4-05 by mouth ity of 09:24: daily. [address] losartan 2021-0 Yes 20mg Take 20 mg Uni vers potassium 4-05 by mouth. ity o f (LOSARTAN 09:24: [place] ORAL) [address] [place] [address] FUROSEMIDE 2021-0 Yes 40mg Take 40 mg U nivers ORAL 4-05 by mouth ity of 09:24: daily. [address] losartan 2021-0 Yes 20mg Take 20 mg Uni vers potassium 4-05 by mouth. ity o f (LOSARTAN 09:24: [place] ORAL) [address] [place] [address] FUROSEMIDE 2021-0 Yes 40mg Take 40 mg U nivers ORAL 4-05 by mouth ity of 09:24: daily. [address] losartan 2021-0 Yes 20mg Take 20 mg Uni vers potassium 4-05 by mouth. ity o f (LOSARTAN 09:24: [place] ORAL) [address] [place] [address] FUROSEMIDE 2021-0 Yes 40mg Take 40 mg U nivers ORAL 4-05 by mouth ity of 09:24: daily. [address] losartan 2021-0 Yes 20mg Take 20 mg Uni vers potassium 4-05 by mouth. ity o f (LOSARTAN 09:24: [place] ORAL) [address] [place] [address] Branch FUROSEMIDE 2021-0 Yes 40mg Take 40 mg U nivers ORAL 4-05 by mouth ity of 09:24: daily. [address] losartan 2021-0 Yes 20mg Take 20 mg Uni vers potassium 4-05 by mouth. ity o f (LOSARTAN 09:24: [place] ORAL) [address] [place] [address] Branch FUROSEMIDE 2021-0 Yes 40mg Take 40 mg U nivers ORAL 4-05 by mouth ity of 09:24: daily. [address] losartan 2021-0 Yes 20mg Take 20 mg Uni vers potassium 4-05 by mouth. ity o f (LOSARTAN 09:24: [place] ORAL) [address] [place] [address] Branch FUROSEMIDE 2021-0 Yes 40mg Take 40 mg U nivers ORAL 4-05 by mouth ity of 09:24: daily. [address] losartan 2021-0 Yes 20mg Take 20 mg Uni vers potassium 4-05 by mouth. ity o f (LOSARTAN 09:24: [place] ORAL) [address] [place] [address] Branch FUROSEMIDE 2021-0 Yes 40mg Take 40 mg U nivers ORAL 4-05 by mouth ity of 09:24: daily. [address] Branch gabapentin 2021-0 Yes [id number] 300mg Take 1 Univers 300 mg 4-05 capsule by ity of capsule 00:00: mouth 3 [place] 00 (three) Medical times Branch daily. rizatriptan 2021-0 Yes [id number] 5mg Take 1 Univers 5 mg 4-05 tablet by ity of [place]integrat 00:00: [place] tablet 00 needed for Med ical Migraine Branch (Take 5mg at the beginning of the headache can repeat 2h after if headaches persists). May repeat in 2 hours if needed magnesium 2-0 Yes [id number] 400mg Take 2 Univers gluconate 4-05 tablets by ity of 200 mg 00:00: mouth 2 [place] tablet 00 (two) Medical times Branch daily. gabapentin 2022-0 Yes [id number] 300mg Take 1 Univers 300 mg 4-05 capsule by ity of capsule 00:00: mouth 3 [place] 00 (three) Medical times Branch daily. rizatriptan 2022-0 Yes [id number] 5mg Take 1 Univers 5 mg 4-05 tablet by ity of disintegrat [place]: [place] 00 needed for Med ical Migraine Branch (Take 5mg at the beginning of the headache can repeat 2h after if headaches persists). May repeat in 2 hours if needed magnesium 2022-0 Yes [id number] 400mg Take 2 Univers gluconate 4-05 tablets by ity of 200 mg 00:00: mouth 2 [place] tablet 00 (two) Medical times Branch daily. gabapentin 2022-0 Yes [id number] 300mg Take 1 Univers 300 mg 4-05 capsule by ity of capsule 00:00: mouth 3 [place] 00 (three) Medical times Branch daily. rizatriptan 2022-0 Yes [id number] 5mg Take 1 Univers 5 mg 4-05 tablet by ity of disintegrat 00:00: [place] 00 needed for Med ical Migraine Branch (Take 5mg at the beginning of the headache can repeat 2h after if headaches persists). May repeat in 2 hours if needed magnesium 2022-0 Yes [id number] 400mg Take 2 Univers gluconate 4-05 tablets by ity of 200 mg 00:00: mouth 2 [place] tablet 00 (two) Medical times Branch daily. gabapentin 2022-0 Yes [id number] 300mg Take 1 Univers 300 mg 4-05 capsule by ity of capsule 00:00: mouth 3 (three) Medical times Branch daily. rizatriptan 2022-0 Yes [id number] 5mg Take 1 Univers 5 mg 4-05 tablet by ity of disintegrat 00:00: [place] tablet 00 needed for Med ical Migraine Branch (Take 5mg at the beginning of the headache can repeat 2h after if headaches persists). May repeat in 2 hours if needed magnesium 2022-0 Yes [id number] 400mg Take 2 Univers gluconate 4-05 tablets by ity of 200 mg 00:00: mouth 2 [place] tablet 00 (two) Medical times Branch daily. gabapentin 2022-0 Yes [id number] 300mg Take 1 Univers 300 mg 4-05 capsule by ity of capsule 00:00: mouth 3 [place] 00 (three) Medical times Branch daily. rizatriptan 2022-0 Yes [id number] 5mg Take 1 Univers 5 mg 4-05 tablet by ity of disintegrat 00:00: [place] tablet 00 needed for Med ical Migraine Branch (Take 5mg at the beginning of the headache can repeat 2h after if headaches persists). May repeat in 2 hours if needed magnesium 2022-0 Yes [id number] 400mg Take 2 Univers gluconate 4-05 tablets by ity of 200 mg 00:00: mouth 2 [place] tablet 00 (two) Medical times Branch daily. gabapentin 2022-0 Yes [id number] 300mg Take 1 Univers 300 mg 4-05 capsule by ity of capsule 00:00: mouth 3 [place] 00 (three) Medical times Branch daily. rizatriptan 2022-0 Yes [id number] 5mg Take 1 Univers 5 mg 4-05 tablet by ity of disintegrat 00:00: mouth [place] tablet 00 needed for Med ical Migraine Branch (Take 5mg at the beginning of the headache can repeat 2h after if headaches persists). May repeat in 2 hours if needed magnesium 2022-0 Yes [id number] 400mg Take 2 Univers gluconate 4-05 tablets by ity of 200 mg 00:00: mouth 2 [place] tablet 00 (two) Medical times Branch daily. gabapentin 2022-0 Yes [id number] 300mg Take 1 Univers 300 mg 4-05 capsule by ity of capsule 00:00: mouth 3 [place] 00 (three) Medical times Branch daily. rizatriptan 2022-0 Yes [id number] 5mg Take 1 Univers 5 mg 4-05 tablet by ity of disintegrat 00:00: mouth [place] tablet 00 needed for Med ical Migraine Branch (Take 5mg at the beginning of the headache can repeat 2h after if headaches persists). May repeat in 2 hours if needed magnesium 2022-0 Yes [id number] 400mg Take 2 Univers gluconate 4-05 tablets by ity of 200 mg 00:00: mouth 2 [place] tablet 00 (two) Medical times Branch daily. gabapentin 2022-0 Yes [id number] 300mg Take 1 Univers 300 mg 4-05 capsule by ity of capsule 00:00: mouth 3 [place] 00 (three) Medical times Branch daily. rizatriptan 2022-0 Yes [id number] 5mg Take 1 Univers 5 mg 4-05 tablet by ity of disintegrat 00:00: mouth as [place] tablet 00 needed for Med ical Migraine Branch (Take 5mg at the beginning of the headache can repeat 2h after if headaches persists). May repeat in 2 hours if needed magnesium 2022-0 Yes [id number] 400mg Take 2 Univers gluconate 4-05 tablets by ity of 200 mg 00:00: mouth 2 [place] tablet 00 (two) Medical times Branch daily. gabapentin 2022-0 Yes [id number] 300mg Take 1 Univers 300 mg 4-05 capsule by ity of capsule 00:00: mouth 3 [place] 00 (three) Medical times Branch daily. rizatriptan 2022-0 Yes [id number] 5mg Take 1 Univers 5 mg 4-05 tablet by ity of disintegrat 00:00: mouth as [place] tablet 00 needed for Med ical Migraine Branch (Take 5mg at the beginning of the headache can repeat 2h after if headaches persists). May repeat in 2 hours if needed magnesium 2022-0 Yes [id number] 400mg Take 2 Univers gluconate 4-05 tablets by ity of 200 mg 00:00: mouth 2 [place] tablet 00 (two) Medical times Branch daily. gabapentin 2022-0 Yes [id number] 300mg Take 1 Univers 300 mg 4-05 capsule by ity of capsule 00:00: mouth 3 [place] 00 (three) Medical times Branch daily. rizatriptan 2022-0 Yes [id number] 5mg Take 1 Univers 5 mg 4-05 tablet by ity of disintegrat 00:00: mouth as [place] tablet 00 needed for Med ical Migraine Branch (Take 5mg at the beginning of the headache can repeat 2h after if headaches persists). May repeat in 2 hours if needed magnesium 2022-0 Yes [id number] 400mg Take 2 Univers gluconate 4-05 tablets by ity of 200 mg 00:00: mouth 2 [place] tablet 00 (two) Medical times Branch daily. gabapentin 2022-0 Yes [id number] 300mg Take 1 Univers 300 mg 4-05 capsule by ity of capsule 00:00: mouth 3 [place] 00 (three) Medical times Branch daily. rizatriptan 2022-0 Yes [id number] 5mg Take 1 Univers 5 mg 4-05 tablet by ity of disintegrat 00:00: mouth [place] tablet 00 needed for Med ical Migraine Branch (Take 5mg at the beginning of the headache can repeat 2h after if headaches persists). May repeat in 2 hours if needed magnesium 2022-0 Yes [id number] 400mg Take 2 Univers gluconate 4-05 tablets by ity of 200 mg 00:00: mouth 2 [place] tablet 00 (two) Medical times Branch daily. ondansetron 2020-0 Yes [id number] 4mg Take 1 Univers (ZOFRAN 7-22 tablet by ity of ODT) 4 mg 00:00: mouth [place] disintegrat 00 every 8 Medic al ing tablet (eight) Branch hours as needed for Nausea and Vomiting (N/V). ondansetron 2020-0 Yes [id number] 4mg Take 1 Univers (ZOFRAN 7-22 tablet by ity of ODT) 4 mg 00:00: mouth [place] disintegrat 00 every 8 Medic al ing tablet (eight) Branch hours as needed for Nausea and Vomiting (N/V). ondansetron 2020-0 Yes [id number] 4mg Take 1 Univers (ZOFRAN 7-22 tablet by ity of ODT) 4 mg 00:00: mouth [place] disintegrat 00 every 8 Medic al ing tablet (eight) Branch hours as needed for Nausea and Vomiting (N/V). ondansetron 2020-0 Yes [id number] 4mg Take 1 Univers (ZOFRAN 7-22 tablet by ity of ODT) 4 mg 00:00: mouth [place] disintegrat 00 every 8 Medic al ing tablet (eight) Branch hours as needed for Nausea and Vomiting (N/V). ondansetron 2020-0 Yes [id number] 4mg Take 1 Univers (ZOFRAN 7-22 tablet by ity of ODT) 4 mg 00:00: mouth [place] disintegrat 00 every 8 Medic al ing tablet (eight) Branch hours as needed for Nausea and Vomiting (N/V). ondansetron 2020-0 Yes [id number] 4mg Take 1 Univers (ZOFRAN 7-22 tablet by ity of ODT) 4 mg 00:00: mouth [place] disintegrat 00 every 8 Medic al ing tablet (eight) Branch hours as needed for Nausea and Vomiting (N/V). ondansetron 1-0 Yes [id number] 4mg Take 1 Univers (ZOFRAN 7-22 tablet by ity of ODT) 4 mg 00:00: mouth [place] disintegrat 00 every 8 Medic al ing tablet (eight) Branch hours as needed for Nausea and Vomiting (N/V). ondansetron 2020-0 Yes [id number] 4mg Take 1 Univers (ZOFRAN 7-22 tablet by ity of ODT) 4 mg 00:00: mouth [place] disintegrat 00 every 8 Medic al ing tablet (eight) Branch hours as needed for Nausea and Vomiting (N/V). ondansetron 2021-0 Yes [id number] 4mg Take 1 Univers (ZOFRAN 7-22 tablet by ity of ODT) 4 mg 00:00: mouth [place] disintegrat 00 every 8 Medic al ing tablet (eight) Branch hours as needed for Nausea and Vomiting (N/V). ondansetron 2021-0 Yes [id number] 4mg Take 1 Univers (ZOFRAN 7-22 tablet by ity of ODT) 4 mg 00:00: mouth [place] disintegrat 00 every 8 Medic al ing tablet (eight) Branch hours as needed for Nausea and Vomiting (N/V). ondansetron 2021-0 Yes [id number] 4mg Take 1 Univers (ZOFRAN 7-22 tablet [...] mouth ity of tablet 13:17: at [place] bedtime. Medical Branch allopurinoL 2020-0 Yes 100mg [...] by mouth ity of tablet 13:17: at [place] [address] bedtime. Medical Branch allopurinoL 2020-0 Yes 100mg Take 100 U nivers 100 mg 6-24 mg by ity of tablet 13:17: mouth [place] 52 daily. Medical Branch atorvastati 2020-0 Yes 10mg Take 10 mg Univers n 10 mg 6-24 by mouth ity of tablet 13:17: at [place] [address] bedtime. Medical Branch allopurinoL 2020-0 Yes 100mg Take 100 U nivers 100 mg 6-24 mg by ity of tablet 13:17: mouth [place] 52 daily. Medical Branch atorvastati 2020-0 Yes 10mg Take 10 mg Univers n 10 mg 6-24 by mouth ity of tablet 13:17: at [place] [address] bedtime. Medical Branch allopurinoL 2020-0 Yes 100mg Take 100 U nivers 100 mg 6-24 mg by ity of tablet 13:17: mouth [place] 52 daily. Medical Branch atorvastati 2020-0 Yes 10mg Take 10 mg Univers n 10 mg 6-24 by mouth ity of tablet 13:17: at [place] 52 bedtime. Medical Branch allopurinoL 2020-0 Yes 100mg Take 100 U nivers 100 mg 6-24 mg by ity of tablet 13:17: mouth [place] 52 daily. Medical Branch atorvastati 2020-0 Yes 10mg Take 10 mg Univers n 10 mg 6-24 by mouth ity of tablet 13:17: at [place] 52 bedtime. Medical Branch allopurinoL 2020-0 Yes 100mg Take 100 U nivers 100 mg 6-24 mg by ity of tablet 13:17: mouth [place] 52 daily. Medical Branch atorvastati 2020-0 Yes 10mg Take 10 mg Univers n 10 mg 6-24 by mouth ity of tablet 13:17: at [place] 52 bedtime. Medical Branch propranolol 2020-0 Yes 80mg [...] mouth 2 ity of tablet 13:12: (two) [place] 38 times Medical daily. Branch propranolol 2020-0 Yes 80mg Take 80 mg Univers 80 mg 6-24 by mouth 2 ity of tablet 13:12: (two) [place] 38 times Medical daily. Branch propranolol 2020-0 Yes 80mg Take 80 mg Univers 80 mg 6-24 by mouth 2 ity of tablet 13:12: (two) [place] 38 times Medical daily. Branch propranolol 2020-0 Yes 80mg Take 80 mg Univers 80 mg 6-24 by mouth 2 ity of tablet 13:12: (two) [place] 38 times Medical daily. Branch propranolol 2020-0 Yes 80mg Take 80 mg Univers 80 mg 6-24 by mouth 2 ity of tablet 13:12: (two) [place] 38 times Medical daily. Branch propranolol 2020-0 Yes 80mg Take 80 mg Univers 80 mg 6-24 by mouth 2 ity of tablet 13:12: (two) [place] 38 times Medical daily. Branch propranolol 2020-0 Yes 80mg Take 80 mg Univers 80 mg 6-24 by mouth 2 ity of tablet 13:12: (two) [place] 38 times Medical daily. Branch propranolol 2020-0 Yes 80mg Take 80 mg Univers 80 mg 6-24 by mouth 2 ity of tablet 13:12: (two) [place] 38 times Medical daily. Branch Vital Signs Vital Name Observation Time Observation Value Comments Source Respiratory rate 2022-01-11 17:11:00 18 /min [facility] [place] [facility] [place] Body height 2022-01-11 17:11:00 167.6 cm [facility] [place] [facility] [place] Body weight 2022-01-11 17:11:00 100.699 kg [facility] ty [facility] [place] [facility] [place] BMI 2022-01-11 17:11:00 35.83 kg/m2 Universi ty of [facility] Branch Systolic blood 2021-08-24 14:24:00 133 mm[Hg] Univer sity of pressure [facility] Diastolic blood 2021-08-24 14:24:00 73 mm[Hg] Unive rsity of pressure [facility] Heart rate 2021-08-24 14:24:00 69 /min Universi ty of [facility] Respiratory rate 2021-08-24 14:24:00 18 /min [facility] ersity of [facility] Body height 2021-08-24 14:24:00 167.6 cm Universi ty of [place] [facility] [place] Body weight 2021-08-24 14:24:00 100.245 kg [facility] [place] [facility] BMI 2021-08-24 14:24:00 35.67 kg/m2 Universi ty of [facility] Oxygen saturation in 2021-06-07 15:30:00 96 /[facility] by [facility] Pulse oximetry Branch Body temperature 2021-06-07 14:20:30 37.44 Verna [facility] Procedure Date / Time Performed Performing Clinician Sour e CONSENT/REFUSAL FOR 2022-01-11 17:10:16 Doctor Unassigned, No Un [facility] [place] DIAGNOSIS AND Name Medical Branch TREATMENT CONSENT/REFUSAL FOR 2022-01-11 17:10:16 Doctor Unassigned, No Un [facility] [place] DIAGNOSIS AND Name Medical Branch TREATMENT Encounters Start End Encounter Admission Attending Care Care Encounter Source Date/Time Date/Time Type Type Clinicians Facility Department ID 2020-12-13 Emergency [facility] [id number] Univers 10:09:54 ity of [facility] 2020-12-11 Emergency [facility] [id number] Univers 04:02:45 ity of [facility] 2022-01-11 2022-01-11 Outpatient UNA DELGADILLO [facility] [id number] Univers 11:00:00 12:39:46 UNA HESTER [facility] 2022-01-11 2022-01-11 Orders Doctor 1.2.840.4 [id number] Univers 00:00:00 00:00:00 Only Unassigned, 39775.1.1 ity of [place] 3.104.2.7 [place] .3.518369 Medica l .8 [place] 2022-01-11 2022-01-11 Travel 1.2.840.1 1.2.469.632 [id number] Univers 00:00:00 00:00:00 28180.1.1 350.1.13.10 ity of 3.104.2.7 4.2.7.3.698 [place] .3.585206 084.8 Medica l .8 [place] 2021-11-24 2021-11-24 Outpatient R QUENTIN, [facility] [id number] Univers 09:30:00 09:30:00 IGOR walters [facility] 2021-11-16 2021-11-16 Outpatient R UNA HESTER [facility] [id number] Univers 11:00:00 11:00:00 UNA HESTER dl [facility] 2021-10-26 2021-10-26 Outpatient R SELF, [facility] [id number] Univers 08:00:00 08:00:00 DERRELL [facility]ters [facility] 2021-10-20 2021-10-20 Outpatient R QUENTIN [facility] [id number] Univers 10:00:00 10:00:00 IGOR walters [facility] 2021-10-03 2021-10-03 Outpatient R JENNIFER [facility] [id number] Univers 14:30:00 14:30:00 REX lupillo [facility] 2021-09-21 2021-09-21 Outpatient R SELF, [facility] [id number] Univers 09:30:00 09:30:00 DERRELL walters [facility] 2021-08-24 2021-08-24 Outpatient R SELF, [facility] [id number] Univers 09:30:00 10:41:34 DERRELL martinez [facility] 2021-08-24 2021-08-24 Travel 1.2.840.1 1.2.334.543 [id number] Univers 00:00:00 00:00:00 16390.1.1 350.1.13.10 ity of 3.104.2.7 4.2.7.3.698 [place] .3.306631 084.8 Medica l .8 [place] 2021-07-25 2021-07-25 Outpatient R SELF, [facility] [id number] Univers 09:00:00 09:00:00 DERRELL martinez [facility] 2021-06-22 2021-06-22 Outpatient R SUKHJINDER HESTERBERLY [facility] [id number] Univers 11:15:00 12:18:05 UNA HESTER dl [facility] 2021-06-22 2021-06-22 Outpatient R SUKHJINDER HESTERBERLY [facility] [id number] Univers 11:15:00 11:15:00 SUKHJINDER HESTERBERLY [facility] 2021-06-22 2021-06-22 Travel 1.2.840.1 1.2.704.632 [id number] Univers 00:00:00 00:00:00 12179.1.1 350.1.13.10 ity of 3.104.2.7 4.2.7.3.698 [place] .3.324144 084.8 Medica l .8 [place] 2021-06-20 2021-06-20 Outpatient R SELF, [facility] [id number] Univers 11:15:00 11:15:00 DERRELL [facility]ters [facility] 2021-06-20 2021-06-20 Outpatient R SELF, [facility] [id number] Univers 11:15:00 11:15:00 DERRELL [facility]ters [facility] 2021-06-08 2021-06-08 Outpatient R HILARY MOORE [facility] [id number] Univers 09:20:00 09:20:00 HILARY MOORE dl [facility] 2021-06-08 2021-06-08 Patient Quentin, 1.2.840.2 [id number] Univers 00:00:00 00:00:00 Secure Igor 90130.1.1 ity of [place] 3.104.2.7 [place] .3.344721 Medica l .8 [place] 2021-06-07 2021-06-07 Emergency X , [facility] ERT [id number] Univers 09:13:00 10:50:00 LULY wesley of [facility] 2021-06-07 2021-06-07 [facility] 1.2.924.513 [id number] Univers 09:13:00 10:50:00 Luly [place] 350.1.13.10 i ty of [place] 4.2.7.2.686 [facility] [id number] [facility] rogelio 084 [place] 2021-06-07 2021-06-07 Emergency Ny, 1.2.840.4 [id number] Univers 09:13:00 10:50:00 Luly 05337.1.1 ity of 3.104.2.7 [place] .3.113265 Medica l .8 [place] 2021-06-07 2021-06-07 Outpatient R QUENTIN, [facility] [id number] Univers 00:00:00 00:00:00 IGOR wesley o f [facility] 2021-06-07 2021-06-07 Orders Doctor MOO 1.2.840.114 [id number] Univers 00:00:00 00:00:00 Only Unassigned, QUITA 350.1.13.10 ity of [place] [facility] 4.2.7.2.686 [facility] [phone] Medi rogelio 009 Branch 2021-06-07 2021-06-07 Travel 1.2.840.1 1.2.151.380 [id number] Univers 00:00:00 00:00:00 76830.1.1 350.1.13.10 ity of 3.104.2.7 4.2.7.3.698 [place] .3.039566 084.8 Medica l .8 Branch 2021-06-07 2021-06-07 Orders Doctor 1.2.840.7 [id number] Univers 00:00:00 00:00:00 Only Unassigned, 41804.1.1 ity of [place] 3.104.2.7 [place] .3.877355 Medica l .8 Branch 2021-06-03 2021-06-03 Travel 1.2.840.1 1.2.616.608 [id number] Univers 00:00:00 00:00:00 58962.1.1 350.1.13.10 ity of 3.104.2.7 4.2.7.3.698 [place] .3.592259 084.8 Medica l .8 [place] 2021-05-27 2021-05-27 Outpatient R [facility] [id number] Univers 00:00:00 00:00:00 IGOR walters f [facility] 2021-05-27 2021-05-27 Outpatient R [facility] [id number] Univers 00:00:00 00:00:00 IGOR walters f [facility] 2021-05-25 2021-05-25 Patient Doctor 1.2.840.0 [id number] Univers 00:00:00 00:00:00 Secure Msg Unassigned, 20454.1.1 ity of [place] 3.104.2.7 [place] .3.810711 Medica l .8 [place] 2021-05-25 2021-05-25 Patient Doctor 1.2.840.9 [id number] Univers 00:00:00 00:00:00 Secure Msg Unassigned, 24898.1.1 ity of [place] 3.104.2.7 [place] .3.679674 Medica l .8 [place] 2021-05-20 2021-05-20 Telephone Jones 1.2.840.1 [id number] Univers 00:00:00 00:00:00 Best, 14068.1.1 ity of [place] 3.104.2.7 [place] .3.678800 Medica l .8 Branch 2021-05-20 2021-05-20 Telephone Jones 1.2.840.5 [id number] Univers 00:00:00 00:00:00 Best, 56988.1.1 ity of [place] 3.104.2.7 [place] .3.106143 Medica l .8 Branch 2021-05-18 2021-05-18 Travel 1.2.840.1 1.2.614.753 [id number] Univers 00:00:00 00:00:00 87504.1.1 350.1.13.10 ity of 3.104.2.7 4.2.7.3.698 [place] .3.468937 084.8 Medica l .8 Branch 2021-05-18 2021-05-18 Travel 1.2.840.1 1.2.558.868 [id number] Univers 00:00:00 00:00:00 62238.1.1 350.1.13.10 ity of 3.104.2.7 4.2.7.3.698 [place] .3.812590 084.8 Medica l .8 [place] 2021-05-17 2021-05-17 Mental Health Aide Pcp-Lab [facility] 1.2.840.114 [id number] Univers 13:15:00 13:30:00 Visit Igor Saavedra PRIMARY 350.1.13.1 0 ity of CARE 4.2.7.2.686 Sujey [place] [id number] Dc dical 366 [place] 2021-05-17 2021-05-17 Mental Health Aide Igor Saavedra 1.2.840.1 1 [id number] Univers 13:15:00 13:30:00 Visit Pcp-Lab 42531.1.1 ity of 3.104.2.7 [place] .3.499194 Medica l .8 Branch 2021-05-17 2021-05-17 Mental Health Aide Igor Saavedra 1.2.840.1 1 [id number] Univers 13:15:00 13:30:00 Visit Pcp-Lab 60488.1.1 ity of 3.104.2.7 [place] .3.831382 Medica l .8 [place] 2021-05-17 2021-05-17 Outpatient R QUENTIN [facility] [id number] Univers 09:00:00 10:25:05 IGOR ity o [facility] 2021-05-17 2021-05-17 Office Saavedra, Igor [place] 1.2.840.1 [id number] Univers 09:00:00 10:25:05 Visit YordyliveDeonte 87473.1.1 ity of 3.104.2.7 [place] .3.554290 Medica l .8 [place] 2021-05-17 2021-05-17 Outpatient R QUENTIN [facility] [id number] Univers 09:00:00 10:25:05 IGOR wesley [facility] 2021-05-17 2021-05-17 Outpatient R QUENTIN [facility] [id number] Univers 09:30:00 09:30:00 IGOR wesley o [facility] 2021-05-17 2021-05-17 Travel 1.2.840.1 1.2.755.414 [id number] Univers 00:00:00 00:00:00 74274.1.1 350.1.13.10 ity of 3.104.2.7 4.2.7.3.698 [place] .3.411893 084.8 Medica l .8 [place] 2021-05-17 2021-05-17 Travel 1.2.840.1 1.2.131.110 [id number] Univers 00:00:00 00:00:00 31834.1.1 350.1.13.10 ity of 3.104.2.7 4.2.7.3.698 [place] .3.280636 084.8 Medica l .8 [place] 2021-04-26 2021-04-26 Outpatient R [facility] [id number] Univers 09:00:00 09:00:00 ity of [facility] 2021-04-26 2021-04-26 Outpatient R UNKNOWN, [facility] [id number] Univers 09:00:00 09:00:00 ATTENDING ity [facility] 2021-04-20 2021-04-20 Outpatient R UNA HESTER [facility] [id number] Univers 08:45:00 08:45:00 UNA HESTER [facility] 2021-04-11 2021-04-11 Outpatient Tonya MITCHELLSALLY [facility] [id number] Univers 08:40:00 08:40:00 SALLY MITCHELL dl [facility] 2021-04-11 2021-04-11 Outpatient R PAULASALLY [facility] [id number] Univers 08:40:00 08:40:00 SALLY MITCHELL [facility] 2021-03-21 2021-03-21 Outpatient Tonya MITCHELLSALLY [facility] [id number] Univers 08:00:00 08:00:00 SALLY MITCHELL [facility] 2021-03-17 2021-03-17 Patient Doctor 1.2.840.8 [id number] Univers 00:00:00 00:00:00 Secure Msg Unassigned, 91622.1.1 ity of [place] 3.104.2.7 [facility]3.078280 Medica l .[address] [place] [address] 2021-03-17 2021-03-17 Patient Doctor 1.2.840.8 [id number] Univers 00:00:00 00:00:00 Secure Msg Unassigned, 26007.1.1 ity of [place] 3.104.2.7 [facility]3.399071 Medica l .8 [place] 2021-03-17 2021-03-17 Patient Doctor 1.2.840.0 [id number] Univers 00:00:00 00:00:00 Secure Msg Unassigned, 85189.1.1 ity of [place] 3.104.2.7 [facility]3.602522 Medica l .8 [place] 2021-03-16 2021-03-16 Mental Health Aide [place] 1.2.840.1 [id number] Univers 13:15:00 13:30:00 Visit Pcp-Lab 18600.1.1 ity of 3.104.2.7 [place] .3.040183 Medica l .8 [place] 2021-03-16 2021-03-16 Mental Health Aide FabiánRaleigh harper Solomon 1.2.840.1 [id number] Univers 13:15:00 13:30:00 Visit Pcp-Lab 59433.1.1 ity of 3.104.2.7 [place] .3.794933 Medica l .8 [place] 2021-03-16 2021-03-16 Outpatient Tonya LOCKWOOD [facility] [id number] Univers 13:15:00 13:15:00 RALEIGH [facility] 2021-03-16 2021-03-16 [facility] [id number] Univers 12:00:00 12:09:51 UNA HESTER [facility] 2021-03-16 2021-03-16 [facility] [id number] Univers 12:00:00 12:09:51 UNA HESTER [facility] 2021-03-16 2021-03-16 Outpatient UNA DELGADILLO [facility] [id number] Univers 12:00:00 12:00:00 KACIESUKHJINDERUNA [facility] 2021-03-16 2021-03-16 Travel 1.2.840.1 1.2.944.032 [id number] Univers 00:00:00 00:00:00 45518.1.1 350.1.13.10 ity of 3.104.2.7 4.[place].3.698 [place] .3.451095 084.8 Medica l .8 [place] 2021-03-16 2021-03-16 Travel 1.2.840.1 1.2.231.326 [id number] Univers 00:00:00 00:00:00 54278.1.1 350.1.13.10 ity of 3.104.2.7 [place]3.698 [place] .3.741038 084.8 Medica l .8 [place] 2021-03-11 2021-03-11 Emergency X GEETA, [facility] ERT [id number] Univers 09:44:00 13:06:00 HALIMA ity of [facility] 2021-03-11 2021-03-11 Emergency Geeta, 1.2.840.5 [id number] Univers 09:44:00 13:06:00 Halima J 24052.1.1 ity of 3.104.2.7 [place] .3.797571 Medica l .8 [place] 2021-03-11 2021-03-11 Emergency [facility] [id number] Univers 09:44:00 13:06:00 HALIMA ity of [facility] 2021-03-11 2021-03-11 Emergency Geeta, 1.2.840.5 [id number] Univers 09:44:00 13:06:00 Halima Cates 02849.1.1 ity of 3.104.2.7 [place] .3.407464 Medica l .8 [place] 2021-03-11 2021-03-11 Emergency X [facility] [id number] Univers 09:44:00 13:06:00 HALIMA ity of [facility] 2021-03-11 2021-03-11 Emergency X [facility] [id number] Univers 09:44:00 09:44:00 HALIMA ity of [facility] 2021-03-11 2021-03-11 Travel 1.2.840.1 1.2.557.799 [id number] Univers 00:00:00 00:00:00 35992.1.1 350.1.13.10 ity of 3.104.2.7 4.[place].3.698 [place] .3.647436 084.8 Medica l .8 [place] 2021-03-11 2021-03-11 Travel 1.2.840.1 1.2.945.074 [id number] Univers 00:00:00 00:00:00 19900.1.1 350.1.13.10 ity of 3.104.2.7 4.[place]7.3.698 [place] .3.512226 084.8 Medica l .8 [place] 2021-03-08 2021-03-08 Mental Health Aide [place] 1.2.840.1 0 [id number] Univers 15:00:00 15:15:00 Visit Pcp-Lab 53472.1.1 ity of 3.104.2.7 [place] .3.120447 Medica l .8 [place] 2021-03-08 2021-03-08 Mental Health Aide [place] 1.2.840.1 0 [id number] Univers 15:00:00 15:15:00 Visit Pcp-Lab 69076.1.1 ity of 3.104.2.7 [place] .3.347651 Medica l .8 [place] 2021-03-08 2021-03-08 Outpatient R FABIÁN [facility] [id number] Univers 15:00:00 15:00:00 [place] w[facility]ley [facility] 2021-01-31 2021-01-31 Outpatient R SELF, [facility] [id number] Univers 10:15:00 10:55:06 DERRELL lupillo [facility] 2020-12-29 2020-12-29 Outpatient R SELF, [facility] [id number] Univers 08:00:00 08:41:00 [facility] 2020-12-29 2020-12-29 Outpatient R SELF, [facility] [id number] Univers 08:00:00 08:41:00 DERRELL lupillo [facility] 2020-12-29 2020-12-29 Travel 1.2.840.1 1.2.783.803 [id number] Univers 00:00:00 00:00:00 02311.1.1 350.1.13.10 ity of 3.104.2.7 4.[place].3.698 [place] .3.223930 084.8 Medica l .8 [place] 2020-12-29 2020-12-29 Travel 1.2.840.1 1.2.096.398 [id number] Univers 00:00:00 00:00:00 73912.1.1 350.1.13.10 ity of 3.104.2.7 4.[place].3.698 [place] .3.979449 084.8 Medica l .8 [place] 2020-12-22 2020-12-22 Outpatient R SELF, [facility] [id number] Univers 09:30:00 09:30:00 DERRELL wesley o juan [facility] 2020-12-22 2020-12-22 Outpatient R SELF, [facility] [id number] Univers 09:30:00 09:30:00 DERRELL martinez [facility] 2020-11-10 2020-11-10 Outpatient R SHE, [facility] [id number] Univers 09:30:00 09:30:00 [place] [facility] 2020-11-10 2020-11-10 Orders Doctor 1.2.840.3 [id number] Univers 00:00:00 00:00:00 Only Unassigned, 73371.1.1 ity of [place] 3.104.2.7 [place] .3.451674 Medica l .8 [place] 2020-11-10 2020-11-10 Travel 1.2.840.1 1.2.274.782 [id number] Univers 00:00:00 00:00:00 47582.1.1 350.1.13.10 ity of 3.104.2.7 4.[place]7.3.698 [place] .3.937000 084.8 Medica l .8 [place] 2020-10-11 2020-10-11 Outpatient R SELF, [facility] [id number] Univers 08:00:00 08:00:00 DERRELL wesley o [facility] 2020-10-11 2020-10-11 Travel 1.2.840.1 1.2.017.403 [id number] Univers 00:00:00 00:00:00 14157.1.1 350.1.13.10 ity of 3.104.2.7 4.[place]7.3.698 [place] .3.877651 084.8 Medica l .8 [place] 2020-09-13 2020-09-13 Outpatient R SELF, [facility] [id number] Univers 08:00:00 08:00:00 DERRELL ity o f [facility] 2020-09-13 2020-09-13 Travel 1.2.840.1 1.2.434.517 [id number] Univers 00:00:00 00:00:00 66176.1.1 350.1.13.10 ity of 3.104.2.7 4.[place]7.3.698 [place] .3.456359 084.8 Medica l .8 [place] 2020-09-02 2020-09-02 Emergency Rose, 1.2.840.3 [id number] [facility] 16:12:00 20:21:00 Patti 89794.1.1 ity of 3.104.2.7 [place] .3.151910 Medica l .8 [place] 2020-09-02 2020-09-02 [facility] 1.2.840.114 [id number] 16:12:00 20:21:00 P[place] 350.1.13.10 [place] 4.2.7.2.686 Monitor [id number] 2020-09-02 2020-09-02 Travel 1.2.840.1 1.2.102.248 [id number] Univers 00:00:00 00:00:00 26975.1.1 350.1.13.10 ity of 3.104.2.7 4.[place]7.3.698 [place] .3.335821 084.8 Medica l .8 [place] 2020-09-02 2020-09-02 Orders Doctor 1.2.840.6 [id number] Univers 00:00:00 00:00:00 Only Unassigned, 01704.1.1 ity of [place] 3.104.2.7 [place] .3.127601 Medica l .8 [place] 2020-09-02 2020-09-02 Orders Doctor MOO 1.2.840.114 [id number] 00:00:00 00:00:00 Only Unassigned, QUITA 350.1.13.10 [place] [facility] 4.2.7.2.686 [id number] 2020-08-25 2020-08-25 Outpatient R [facility] [id number] Univers 09:15:00 09:15:00 [facility] 2020-08-09 2020-08-09 Outpatient R SELF, [facility] [id number] Univers 08:45:00 08:45:00 DERRELL martinez [facility] 2020-06-28 2020-06-28 Outpatient R FABIÁN, [facility] [id number] Univers 13:45:00 13:45:00 [facility] 2020-06-21 2020-06-21 Outpatient R SELF, [facility] [id number] Univers 15:15:00 15:15:00 DERRELL wesley o juan [facility] 2020-06-07 2020-06-07 Outpatient R SELF, [facility] [id number] Univers 08:45:00 08:45:00 DERRELL wesley o [facility] 2020-05-25 2020-05-25 Outpatient R MICHELLE, [facility] [id number] Univers 08:30:00 08:30:00 CRISTO [facility] 2020-03-15 2020-03-15 Outpatient R FABIÁN, [facility] [id number] Univers 13:00:00 [facility]:00[facility] 2020-03-08 Outpatient R SELF, [facility] [id number] Univers 13:00:00 13:00:00 DERRELL itdl o juan [facility] 2020-02-16 2020-02-16 Outpatient R SELF, [facility] [id number] Univers 11:00:00 11:00:00 DERRELL itdl o juan [facility] 2020-01-27 2020-01-27 Outpatient R SELF, [facility] [id number] Univers 11:45:00 11:45:00 DERRELL itdl o [facility] 2020-01-19 2020-01-19 Outpatient R SELF, [facility] [id number] Univers 08:00:00 08:00:00 DERRELL martinez [facility] 2019-12-22 2019-12-22 Outpatient R LARISSA, [facility] [id number] Univers 08:45:00 08:45:00 DERRELL martinez [facility] 2019-12-05 2019-12-05 Outpatient R ALEISHA, [facility] [id number] Univers 10:45:00 10:45:00 PRISCA [facility] 2019-10-23 2019-10-23 Outpatient R SANDY, [facility] [id number] Univers 09:15:00 09:15:00 KATH [facility] 2019-10-15 2019-10-15 Outpatient R SHE, [facility] [id number] Univers 11:30:00 11:30:00 [place] [facility] 2019-10-01 2019-10-01 Outpatient R SHE, [facility] [id number] Univers 14:30:00 14:30:00 [facility] 2019-09-01 2019-09-01 Outpatient R LARISSA, [facility] [id number] Univers 08:45:00 08:45:00 DERRELL martinez [facility] 2019-08-06 2019-08-06 Outpatient R SHALOM, [facility] [id number] Univers 13:00:00 13:00:00 ANGELA [facility] Results Test Description Test Time Test Comments [...] VERY HIGH...... ...>/= 190 mg/dL Comments to Rheostat Assembler: ADD TO AM LABSLIPID PROFILE (CORONARY RISK)2018-07-20 [...] MG/DL 0-99 code = LDL) Comments to Rheostat Assembler: ADD TO AM LABSPROTHROMBIN [id number] 06:24:00 Test Item Value Reference Range Interpretation [...] myocar dial infarction. 2.0 - 3.[address] Judge al prosthesis hear t valves, recurre nt systemic emboli sm. 3.0 - 4.5 Comments to Rheostat Assembler: NURSE WILL BRING SPECIMEN TO LABPTT ACTIVATED 2018-07-20 06:24:00 Test Item Value Reference Range Interpretation Comments PTT ACTIVATED (test code = APTT) 29.3 SECONDS 22.0-33.0 N Comments to Rheostat Assembler: NURSE WILL BRING SPECIMEN TO LABBASIC METABOLIC [...] 9.6 MG/DL 8.4-10.2 N CA) Comments to Rheostat Assembler: NURSE WILL BRING SPECIMEN TO LAB Comments to Rheostat Assembler: NURSE WILL BRING SPECIMEN TO [id number] 06:13:00 Test Item Value Reference Range Interpretation Comments MAGNESIUM (test code = MAG) 2.2 MG/DL 1.6-2.3 N Comments to Rheostat Assembler: NURSE WILL BRING SPECIMEN TO LAB Comments to Rheostat Assembler: NURSE WILL BRING SPECIMEN TO LABCBC W/AUTO [id number] 06:02:00 Test Item Value Reference Range Interpretation [...]
[2022-02-11] MEDS ORDERED: AZITHROMYCIN 250 MG TAB ONE (03:21)
[2022-02-11] MEDS ORDERED: NA CHLORIDE 0.9% 1,000 ML ONE (03:21)
[2022-02-11 03:54] LABS: Absolute Lymphocytes (CBC) 1.7 K/uL (0.7-4.9); Hematocrit 30.9 % (36.0-45.0); MCV 69.8 fL (80-100); RBC Red Blood Cell Count 4.43 M/uL (3.86-4.86)
[2022-02-11 04:12] LABS: Albumin 3.4 g/dL (3.4-5.0); Bilirubin Total 0.3 mg/dL (0.2-1.0); Potassium 4.1 mmol/L (3.5-5.1); Protein, Total 7.1 g/dL (6.4-8.2)
[2022-02-11 04:27] LABS: Anisocytosis 1+; Blood Morphology Comment NOTED (NOT SEEN); Hypochromasia 1+; Ovalocytes 1+; Platelet Estimate ADEQ; Stomatocytes 1+; White Blood Cell Scan OK (OK)
[2022-02-11 04:43] LABS: SARS-COV-2 RT PCR NEGATIVE (NEGATIVE)
[2022-02-11] MEDS ORDERED: KETOROLAC 30 MG/ML INJ ONE (04:59)
[2022-02-11 05:07] LABS: Urine Blood Trace-intact (Negative); Urine Glucose Negative (Negative); Urine Protein Negative (Negative); Urine Specific Gravity 1.015 (1.005-1.030)
--- NOTE | 2022-02-11 05:14 | ER ---
Nurse's Notes [facility] Name: Shivani Lagunas Age: 46 yrs Sex: Female : 1975 Arrival Date: 02/11/2022 Time: 02:50 Bed 7 Private MD: Diagnosis: Headache;Fever, unspecified;Acute upper respiratory infection, unspecified;Cough;Other specified abnormal findings of blood chemistry-elevated [place] Presentation: 02/11 03:06 Chief complaint: Patient states: she has been sick for about a week with a sore throat, bb ear pain, jaw pain, shortness of breath and a headache tonight she came in because she had 4 episodes of "shaking" for several seconds and thought she was going to have a seizure. Coronavirus screen: Client presents with at least one sign or symptom that may indicate coronavirus-19. Ebola Screen: No symptoms or risks identified at this time. Initial Sepsis Screen: Does the patient meet any 2 criteria? No. Patient's initial sepsis screen is negative. Does the patient have a suspected source of infection? No. Patient's initial sepsis screen is negative. Risk Assessment: Do you want to hurt yourself or someone else? Patient reports no desire to harm self or others. Onset of symptoms was February 04, 2022. 03:06 Method Of Arrival: Ambulatory bb 03:06 Acuity: ALICIA 3 bb Triage Assessment: 05:26 General: Appears in no apparent distress. Behavior is calm, cooperative. 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 - Social history:: Smoking status: Patient denies any tobacco usage or history of. - Family history:: not pertinent. Screenin:41 [facility] ED Fall Risk Assessment (Adult) History of falling in the last 3 months, tw5 including since admission. Abuse screen: Denies threats or abuse. Denies injuries from another. Nutritional screening: No deficits noted. Tuberculosis screening: No symptoms or risk factors identified. Assessment: 03:41 General: Reports "I was diagnosed with the flu, but I just cannot seem to be getting tw5 better.". Pain: Complains of pain in "Headache." Pain currently is 8 out of 10 on a pain scale. Neuro: Level of Consciousness is awake, alert, obeys commands, Oriented to person, place, time, situation. Cardiovascular: Capillary refill < 3 seconds is brisk in bilateral fingers. Respiratory: Airway is patent Trachea midline Respiratory effort is even, unlabored. 05:08 Reassessment: Patient appears in no apparent distress at this time. Patient and/or as6 family updated on plan of care and expected duration. Pain level reassessed. c/o headache. Vital Signs: 03:06 BP 140 / 86; Pulse 65; Resp 20 S; Temp 97.8(O); Pulse Ox 100% on R/A; Weight 100.7 kg bb (R); Height 5 ft. 6 in. (167.64 cm) (R); Pain 8/10; 03:41 BP 135 / 75; Pulse 62; Resp 18; Pulse Ox 100% on R/A; tw5 05:07 BP 130 / 65; Pulse 57; Resp 18 S; Pulse Ox 100% on R/A; as6 03:06 Body Mass Index 35.83 (100.70 kg, 167.64 cm) Orestes Coma Score: 03:09 Eye Response: spontaneous(4). Verbal Response: oriented(5). Motor Response: obeys lori commands(6). Total: 15. ED Course: 02:50 Patient arrived in ED. ja2 02:55 Bal Dowling MD is Attending Physician. [facility] 03:11 Triage completed. bb 03:12 Arm band placed on Patient placed in an exam room, on a stretcher, on pulse oximetry. bb 03:17 Sneha Bartholomew is Primary Nurse. tw 03:41 Awaiting lab results. 03:41 Patient has correct armband on for positive identification. Placed in gown. Bed in low tw5 position. Call light in reach. Side rails up X 1. Pulse ox on. NIBP on. Door closed. Moved to private room. Warm blanket given. Verbal reassurance given. 03:41 CBC with Diff Sent. tw 03:41 Comprehensive Metabolic Panel Sent. tw 03:41 Strep Sent. 03:41 COVID-19/FLU A+B Sent. 03:41 Initial lab(s) drawn, by wv, sent to lab. COVID swab sent to lab. Flu and/or RSV swab tw5 sent to lab. Strep swab sent to lab. Inserted saline lock: 20 gauge in right hand, using aseptic technique. Blood collected. 04:11 CT Head Brain wo Cont In Process Unspecified. EDMS 04:12 Chest Pa And Lat (2 Views) XRAY In Process Unspecified. EDMS 05:26 No provider procedures requiring assistance completed. IV discontinued, intact, as6 bleeding controlled, No redness/swelling at site. Pressure dressing applied. Administered Medications: 03:41 Drug: Zithromax (azithromycin) 500 mg Route: PO; tw5 05:27 Follow up: Response: No adverse reaction as6 03:41 Drug: NS 0.9% 1000 ml Route: IV; Rate: 1 bolus; Site: right hand; tw5 05:27 Follow up: Response: No adverse reaction; IV Status: Completed infusion; IV Intake: as6 1000ml 04:58 Drug: Ketorolac 30 mg Route: IVP; Site: right hand; as6 05:27 Follow up: Response: No adverse reaction as6 Medication: 03:41 VIS not applicable for this client. tw5 Intake: 05:27 IV: 1000ml; Total: 1000ml. as6 Outcome: 05:14 Discharge ordered by . lori 05:26 Discharged to home ambulatory. as6 05:26 Condition: stable 05:26 Discharge instructions given to patient, Instructed on discharge instructions, follow up and referral plans. medication usage, Demonstrated understanding of instructions, follow-up care, medications, Prescriptions given X 2. 05:27 Patient left the ED. as6 Signatures: Dispatcher [employer] Bal Noel MD MD cha Ballard, Brenda, RN RN bb Alexander, Jessica ja2 Wood, Tiffany tw5 Shalom Stratton RN RN as6 Corrections: (The following items were deleted from the chart) 03:07 03:07 PMHx: Hypertension; lori lori 03:07 03:07 PMHx: depression, anxiety, insomnia; lori lori 03:07 03:07 PMHx: Gout; lori lori 03:07 03:07 PMHx: fatty liver; lori lori 03:07 03:07 PMHx: Anxiety; lori lori 03:07 03:07 PMHx: Bipolar disorder; lori lori 03:07 03:07 PMHx: High Cholesterol; lori lori 03:07 03:07 PMHx: Arrythmia; lori lori 03:07 03:07 PMHx: Schizophrenia; lori lori 03:07 PSHx: section; lori lori : PSHx: Cholecystectomy; lori lori
--- NOTE | 2022-02-11 05:14 | EDPHYS ---
Physician Documentation [facility] Name: Shivani Lagunas Age: 46 yrs Sex: Female : 1975 Arrival Date: 02/11/2022 Time: 02:50 Bed 7 Private MD: ED Physician Bal Dowling HPI: 02/11 03:05 This 46 yrs old Female presents to ER via Unassigned with complaints of lori Headache, Ear Pain, Sore Throat, Shortness Of Breath, Cough, Pain All Over. 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 - Social history:: Smoking status: Patient denies any tobacco usage or history of. - Family history:: not pertinent. ROS: 03:07 Constitutional: Negative for fever, chills, and weight loss, Eyes: Negative for injury, lori pain, redness, and discharge, ENT: Negative for injury, pain, and discharge, Neck: Negative for injury, pain, and swelling, Cardiovascular: Negative for chest pain, palpitations, and edema, Abdomen/GI: Negative for abdominal pain, nausea, vomiting, diarrhea, and constipation, Back: Negative for injury and pain, : Negative for injury, bleeding, discharge, and swelling, MS/Extremity: Negative for injury and deformity, Skin: Negative for injury, rash, and discoloration, Psych: Negative for depression, anxiety, suicide ideation, homicidal ideation, and hallucinations, Allergy/Immunology: Negative for hives, rash, and allergies, Endocrine: Negative for neck swelling, polydipsia, polyuria, polyphagia, and marked weight changes, Hematologic/Lymphatic: Negative for swollen nodes, abnormal bleeding, and unusual bruising. 03:07 Respiratory: Positive for cough. 03:07 Neuro: Positive for headache. Exam: 03:07 Constitutional: This is a well developed, well nourished patient who is awake, alert, lori and in no acute distress. Head/Face: Normocephalic, atraumatic. Eyes: Pupils equal round and reactive to light, extra-ocular motions intact. Lids and lashes normal. Conjunctiva and sclera are non-icteric and not injected. Cornea within normal limits. Periorbital areas with no swelling, redness, or edema. Neck: Trachea midline, no thyromegaly or masses palpated, and no cervical lymphadenopathy. Supple, full range of motion without nuchal rigidity, or vertebral point tenderness. No Meningismus. Chest/axilla: Normal chest wall appearance and motion. Nontender with no deformity. No lesions are appreciated. Cardiovascular: Regular rate and rhythm with a normal S1 and S2. No gallops, murmurs, or rubs. Normal PMI, no JVD. No pulse deficits. Respiratory: Lungs have equal breath sounds bilaterally, clear to auscultation and percussion. No rales, rhonchi or wheezes noted. No increased work of breathing, no retractions or nasal flaring. Abdomen/GI: Soft, non-tender, with normal bowel sounds. No distension or tympany. No guarding or rebound. No evidence of tenderness throughout. Back: No spinal tenderness. No costovertebral tenderness. Full range of motion. Skin: Warm, dry with normal turgor. Normal color with no rashes, no lesions, and no evidence of cellulitis. MS/ Extremity: Pulses equal, no cyanosis. Neurovascular intact. Full, normal range of motion. Neuro: Awake and alert, GCS 15, oriented to person, place, time, and situation. Cranial nerves II-XII grossly intact. Motor strength 5/5 in all extremities. Sensory grossly intact. Cerebellar exam normal. Normal gait. 03:07 ENT: Posterior pharynx: Airway: normal, no evidence of obstruction, Tonsils: are normal in appearance, Uvula: normal, midline, swelling, is not appreciated, erythema, is not appreciated, exudate, is not appreciated, peritonsillar mass, is not appreciated, pooling of secretions, is not appreciated. Vital Signs: 03:06 BP 140 / 86; Pulse 65; Resp 20 S; Temp 97.8(O); Pulse Ox 100% on R/A; Weight 100.7 kg bb (R); Height 5 ft. 6 in. (167.64 cm) (R); Pain 8/10; 03:41 BP 135 / 75; Pulse 62; Resp 18; Pulse Ox 100% on R/A; tw5 05:07 BP 130 / 65; Pulse 57; Resp 18 S; Pulse Ox 100% on R/A; as6 03:06 Body Mass Index 35.83 (100.70 kg, 167.64 cm) [place] Coma Score: 03:09 Eye Response: spontaneous(4). Verbal Response: oriented(5). Motor Response: obeys [facility] commands(6). Total: 15. MDM: 02:55 Patient medically screened. [facility] 03:09 Differential diagnosis: migraine, tension headache. Data reviewed: vital signs, nurses [facility] notes, lab test result(s), radiologic studies, plain films. Data interpreted: service administrator: rate is 80 beats/min, rhythm is regular, Pulse oximetry: on room air is 99 %. Test interpretation: by ED physician or midlevel provider: plain radiologic studies. Counseling: I had a detailed discussion with the patient and/or guardian regarding: the historical points, exam findings, and any diagnostic results supporting the discharge/admit diagnosis, lab results, radiology results, the need for outpatient follow up, for definitive care, a family practitioner. 02/11 03:04 Order name: CBC with Diff; Complete Time: 04:50 [facility] 02/11 03:04 Order name: Comprehensive Metabolic Panel; Complete Time: 04:50 [facility] 02/11 03:04 Order name: Strep [facility] 02/11 03:04 Order name: COVID-19/FLU A+B; Complete Time: 04:50 [facility] 02/11 03:05 Order name: [place]; Complete Time: 04:50 [facility] 02/11 03:57 Order name: CBC Smear Scan; Complete Time: 04:50 [facility] 02/11 03:04 Order name: Chest Pa And Lat (2 Views) XRAY [facility] 02/11 03:04 Order name: Urine Dipstick-Ancillary (obtain specimen); Complete Time: 05:06 [facility] 02/11 03:06 Order name: CT Head Brain wo Cont [facility] 02/11 05:08 Order name: Urine Dipstick-Ancillary; Complete Time: 05:13 [facility] 02/11 05:16 Order name: Throat Culture EDMS Administered Medications: 03:41 Drug: Zithromax (azithromycin) 500 mg Route: PO; tw5 05:27 Follow up: Response: No adverse reaction as6 03:41 Drug: NS 0.9% 1000 ml Route: IV; Rate: 1 bolus; Site: right hand; tw5 05:27 Follow up: Response: No adverse reaction; IV Status: Completed infusion; IV Intake: as6 1000ml 04:58 Drug: Ketorolac 30 mg Route: IVP; Site: right hand; as6 05:27 Follow up: Response: No adverse reaction as6 Disposition Summary: 02/11/22 05:14 Discharge Ordered Location: Home lori Problem: new lori Symptoms: have improved lori Condition: Stable lori Diagnosis - Headache lori - Fever, unspecified lori - Acute upper respiratory infection, unspecified lori - Cough lori - Other specified abnormal findings of blood chemistry - elevated [place] lori Followup: lori - With: Private Physician - When: 2 - 3 days - Reason: Recheck today's complaints, Continuance of care, Re-evaluation by your physician Discharge Instructions: - Discharge Summary Sheet lori - Fever, Adult lori - Cool Mist Vaporizer lori - Upper Respiratory Infection, Adult, Wkew-ry-Lwaq lori - Cough, Adult, Mevl-[id number] lori - Cough, Adult lori - Fever, Adult, [id number] lori Forms: - Medication Reconciliation Form lori - Thank You Letter lori - Antibiotic Education lori - Prescription Opioid Use lori Prescriptions: - Zofran 4 mg Oral Tablet - take 1 tablet by ORAL route every 12 hours As needed; 20 tablet; Refills: 0, lori Product Selection Permitted - Zithromax Z-Rad 250 mg Oral Tablet - take 1 tablet by ORAL route as directed for 5 days Day 1 - take two (2) tablets lori one time. Day 2, 3, 4 , 5 take one (1) tablet once daily.; 6 tablet; Refills: 0, Product Selection Permitted Signatures: Dispatcher [employer] EDBal Degroot MD MD cha Ballard, Brenda, RN RN bb Wood, Tiffany tw5 Shalom Stratton RN RN as6 Corrections: (The following items were deleted from the chart) 03: 03:07 PMHx: Hypertension; lori lori : 03:07 PMHx: depression, anxiety, insomnia; lori lori 03:07 PMHx: Gout; lori lori : 03:07 PMHx: fatty liver; lori lori : 03:07 PMHx: Anxiety; lori lori : 03:07 PMHx: Bipolar disorder; lori lori : 03:07 PMHx: High Cholesterol; lori lori : 03:07 PMHx: Arrythmia; lori lori : 03:07 PMHx: Schizophrenia; lori lori 03:07 PSHx: section; lori lori 03:07 PSHx: Cholecystectomy; lori lori
[2022-02-11 05:38] VITALS: TEMP 97.8; O2SAT 100
[2022-02-11 05:41] VITALS: BP 130/65
--- NOTE | 2022-02-11 22:19 | RAD REPORT ---
EXAM DESCRIPTION: RAD - Chest Pa And Lat (2 Views) - 02/11/2022 4:10 am CLINICAL HISTORY: The patient is 46 years old and is Female; COUGH TECHNIQUE: Frontal and lateral views of the chest. COMPARISON: No relevant prior studies available. FINDINGS: Lungs: Unremarkable. No consolidation. Pleural space: Unremarkable. No pneumothorax. Heart: Unremarkable. Mediastinum: Unremarkable. Bones/joints: Unremarkable. IMPRESSION: No acute findings in the chest. Electronically signed by: Troy Vincent MD 02/11/2022 4:29 AM ASSOCIATE PROFESSOR OF LIBRARY SCIENCE Due to temporary technical issues with the PACS/Fluency reporting system, reports are being signed by the in house radiologists without review as a courtesy to insure prompt reporting. The interpreting radiologist is fully responsible for the content of the report.
--- NOTE | 2022-02-11 22:21 | RAD REPORT ---
EXAM DESCRIPTION: CT - Head Brain Wo Cont - 02/11/2022 6:44 am CLINICAL HISTORY: The patient is 46 years old and is Female; Headache, new or worsening, positional TECHNIQUE: Axial computed tomography images of the head/brain without intravenous contrast. Sagitt al and coronal reformatted images were created and reviewed. This CT exam was performed using one o r more of the following dose reduction techniques: automated exposure control, adjustment of the mA and/or kV according to patient size, and/or use of iterative reconstruction technique. COMPARISON: No relevant prior studies available. FINDINGS: Brain: Unremarkable. No hemorrhage. No significant white matter disease. No edema. Ventricles: Unremarkable. No ventriculomegaly. Bones/joints: Unremarkable. No acute fracture. Soft tissues: Unremarkable. Sinuses: Unremarkable as visualized. Mastoid air cells: Unremarkable as visualized. No mastoid effusion. IMPRESSION: No acute intracranial abnormality. Electronically signed by: Troy Vincent MD 02/11/2022 4:32 AM ELASTIC ATTACHER COVERSTITCH Due to temporary technical issues with the PACS/Fluency reporting system, reports are being signed by the in house radiologists without review as a courtesy to insure prompt reporting. The interpreting radiologist is fully responsible for the content of the report.
== END 2022-02-11 05:27 | disposition home or self-care (01) ==
LOC: ER 02:47
DX: J06.9 Acute upper respiratory infection, unspecified (principal); R78.89 Finding of other specified substances, not normally found in blood; R50.9 Fever, unspecified; R05.9 Cough, unspecified; Z20.822 Contact with and (suspected) exposure to COVID-19
CPT/HCPCS: 0240U; 36415; 70450; 71046; 80053; 80178; 81003; 85025; 87070; 87081; 96361; 96374; 99284; J7030; Q0144

== ENCOUNTER 2022-04-08 13:46 | Emergency (ER) | payer SELFPAY ==
--- OUTSIDE RECORDS SUMMARY | 2022-04-08 13:53 | XMS REPORT | Continuity of Care Document ---
:1975 Author Organization [facility] t Address [address] [place] [address] [address]. [address] [place] [address] Care Team Providers Name Role Phone Pcp, Patient Does Not Have A Primary Care Physician +1-000-0 00-0000 Doctor Unassigned, [place] Attending Clinician Unavailable Pathology Attending Clinician Unavailable Pcp-Lab Attending Clinician Unavailable DERRELL DIAS Attending Clinician Unavailable UNA HESTER Attending Clinician Unavailable UNA HESTER Attending Clinician Unavailable IGOR SAAVEDRA Attending Clinician Unavailable REX RODRIGUEZ Attending Clinician Unavailable HILARY MOORE Attending Clinician Unavailable HILARY MOORE Attending Clinician Unavailable Igor Saavedra MD Attending Clinician LULY NY Attending Clinician Unavailable Luly Ny DO Attending Clinician Zane Martinez MD Attending Clinician Deonte Aviles Attending Clinician Unavailable UNKNOWN, ATTENDING [...] Policy Number Effective Date Expiration Date [facility] MEDICAID SSI PENDING 2021 PENDING 00:00:00 Problems Condition Condition Condition Status Onset Resolution Last Treating Co mments Source Name Details Category Date Date Treatment Clinician Date No known No known Disease Unive rs active active ity of problems problems [facility] Allergies, Adverse Reactions, Alerts Allergy [...] Stop Date Quantity Comments Source Exposure to 2022-02-05 2022-02-15 Not sure [facility] SARS-CoV-2 00:00:00 08:57:00 [facility] (event) [place] Tobacco use and 2021-08-24 2021-08-24 Smokeless tobacco Un iversity of exposure 00:00:00 00:00:00 non-user [facility] Sex Ass[birth year] At [birth year] [facility] 00:00:00 00:00:00 [facility] Smoking Status Start Date Stop Date Source Never smoked tobacco [facility] Medications Ordered Filled Start Stop Current Ordering Indication Dosage Frequency Signature Comments Components Source Medication Medication Date Date Medication? Clinician (SIG) Name Name lamoTRIgine Yes [id number] 100mg Take 1 [facility] 100 mg 1-26 tablet by ity of tablet 00:00: mouth in [place] 00 the Medical morning Branch and 1 tablet in the evening. lamoTRIgine Yes [id number] 100mg Take 1 [facility] 100 mg 1-26 tablet by ity of tablet 00:00: mouth in [place] 00 the Medical morning Branch and 1 tablet in the evening. lamoTRIgine 2023-0 Yes [id number] 100mg Take 1 [facility] 100 mg 1-26 tablet by ity of tablet 00:00: mouth in [place] 00 the Medical morning Branch and 1 tablet in the evening. lamoTRIgine 2023-0 Yes [id number] 100mg Take 1 [facility] 100 mg 1-26 tablet by ity of tablet 00:00: mouth in [place] 00 the Medical morning Branch and 1 tablet in the evening. DULoxetine 2023-0 Yes [id number] 60mg Take 1 [facility] nivers 60 mg 1-04 capsule by ity of capsule 00:00: mouth in [place] 00 the Medical morning Branch and 1 capsule in the evening. lamoTRIgine 2023-0 Yes [id number] 100mg Take 1 [facility] 100 mg 1-04 tablet by ity of tablet 00:00: mouth in [place] 00 the Medical morning Branch and 1 tablet in the evening. traZODone 2023-0 Yes [id number] 50mg Take 1 [facility] nivers 50 mg 1-04 tablet by ity of tablet 00:00: mouth at [place] [address] bedtime. Medical May cut Branch tablet in half. clonazePAM 2023-0 Yes [id number] Take 1 U nivers 1 mg tablet 1-04 tablet by ity of 00:00: mouth [place] 00 twice Medical daily as Branch needed for anxiety. lithium 600 2023-0 Yes [id number] 600mg Take 1 [facility] mg capsule 1-04 capsule by ity of 00:00: mouth in [place] 00 the Medical morning Branch and 1 capsule in the evening. DULoxetine 2023-0 Yes [id number] 60mg Take 1 [facility] nivers 60 mg 1-04 capsule by ity of capsule 00:00: mouth in [place] 00 the Medical morning Branch and 1 capsule in the evening. lamoTRIgine 2023-0 Yes [id number] 100mg Take 1 [facility] 100 mg 1-04 tablet by ity of tablet 00:00: mouth in [place] 00 the Medical morning Branch and 1 tablet in the evening. traZODone 2023-0 Yes [id number] 50mg Take 1 U nivers 50 mg 1-04 tablet by ity of tablet 00:00: mouth at [place] [address] bedtime. Medical May cut Branch tablet in half. clonazePAM 2023-0 Yes [id number] Take 1 U nivers 1 mg tablet 1-04 tablet by ity of 00:00: mouth [place] 00 twice Medical daily as Branch needed for anxiety. lithium 2022-0 Yes [id number] 900mg Take 2 Uni vers carbonate 1-04 tablets by ity of CR 450 mg 00:00: [place] 00 bedtime. Medica l Branch DULoxetine 2022-0 Yes [id number] 60mg Take 1 U nivers 60 mg 1-04 capsule by ity of capsule 00:00: mouth in [place] 00 the Medical morning Branch and 1 capsule in the evening. lamoTRIgine 2022-0 Yes [id number] 100mg Take 1 [facility] 100 mg 1-04 tablet by ity of tablet 00:00: mouth in [place] 00 the Medical morning Branch and 1 tablet in the evening. traZODone 2022-0 Yes [id number] 50mg Take 1 U nivers 50 mg 1-04 tablet by ity of tablet 00:00: mouth at [place] 00 bedtime. Medical May cut Branch tablet in half. clonazePAM 2022-0 Yes [id number] Take 1 U nivers 1 mg tablet 1-04 tablet by ity of 00:00: mouth [place] 00 twice Medical daily as Branch needed for anxiety. lithium 2022-0 Yes [id number] 900mg Take 2 Uni vers carbonate 1-04 tablets by ity of CR 450 mg 00:00: [place] 00 bedtime. Medica l Branch DULoxetine 2022-0 Yes [id number] 60mg Take 1 U nivers 60 mg 1-04 capsule by ity of capsule 00:00: mouth in [place] 00 the Medical morning Branch and 1 capsule in the evening. lamoTRIgine 2022-0 Yes [id number] 100mg Take 1 [facility] 100 mg 1-04 tablet by ity of tablet 00:00: mouth in [place] 00 the Medical morning Branch and 1 tablet in the evening. traZODone 2022-0 Yes [id number] 50mg Take 1 U nivers 50 mg 1-04 tablet by ity of tablet 00:00: mouth at [place] 00 bedtime. Medical May cut Branch tablet in half. clonazePAM 2022-0 Yes [id number] Take 1 U nivers 1 mg tablet 1-04 tablet by ity of 00:00: mouth [place] 00 twice Medical daily as Branch needed for anxiety. lithium 2023-0 Yes [id number] 900mg Take 2 Uni vers carbonate 1-04 tablets by ity of CR 450 mg 00:00: [place] 00 bedtime. Medica l Branch DULoxetine 3-0 Yes [id number] 60mg Take 1 U nivers 60 mg 1-04 capsule by ity of capsule 00:00: mouth in [place] 00 the Medical morning Branch and 1 capsule in the evening. lamoTRIgine 3-0 Yes [id number] 100mg Take 1 [facility] 100 mg 1-04 tablet by ity of tablet 00:00: mouth in [place] 00 the Medical morning Branch and 1 tablet in the evening. traZODone 3-0 Yes [id number] 50mg Take 1 U nivers 50 mg 1-04 tablet by ity of tablet 00:00: mouth at [place] 00 bedtime. Medical May cut Branch tablet in half. clonazePAM 3-0 Yes [id number] Take 1 U nivers 1 mg tablet 1-04 tablet by ity of 00:00: mouth [place] 00 twice Medical daily as Branch needed for anxiety. lithium 2022-0 Yes [id number] 900mg Take 2 [facility] vers carbonate 1-04 tablets by ity of CR 450 mg 00:00: [place] 00 bedtime. Medica l Branch DULoxetine 2022-0 Yes [id number] 60mg Take 1 U nivers 60 mg 1-04 capsule by ity of capsule 00:00: mouth in [place] 00 the Medical morning Branch and 1 capsule in the evening. lamoTRIgine 3-0 Yes [id number] 100mg Take 1 [facility] 100 mg 1-04 tablet by ity of tablet 00:00: mouth in [place] 00 the Medical morning Branch and 1 tablet in the evening. traZODone 3-0 Yes [id number] 50mg Take 1 U nivers 50 mg 1-04 tablet by ity of tablet 00:00: mouth at [place] 00 bedtime. Medical May cut Branch tablet in half. clonazePAM 3-0 Yes [id number] Take 1 U nivers 1 mg tablet 1-04 tablet by ity of 00:00: mouth [place] 00 twice Medical daily as Branch needed for anxiety. lithium 3-0 Yes [id number] 900mg Take 2 [facility] vers carbonate 1-04 tablets by ity of CR 450 mg 00:00: [place] tablet 00 bedtime. Medica l Branch DULoxetine 2022-0 Yes [id number] 60mg Take 1 U nivers 60 mg 1-04 capsule by ity of capsule 00:00: mouth in [place] 00 the Medical morning Branch and 1 capsule in the evening. traZODone 2022-0 Yes [id number] 50mg Take 1 U nivers 50 mg 1-04 tablet by ity of tablet 00:00: mouth at [place] 00 bedtime. Medical May cut Branch tablet in half. clonazePAM 2022-0 Yes [id number] Take 1 U nivers 1 mg tablet 1-04 tablet by ity of 00:00: mouth [place] 00 twice Medical daily as Branch needed for anxiety. lithium 2022-0 Yes [id number] 900mg Take 2 [facility] vers carbonate 1-04 tablets by ity of CR 450 mg 00:00: [place] tablet 00 bedtime. Medica l Branch DULoxetine 2022-0 Yes [id number] 60mg Take 1 U nivers 60 mg 1-04 capsule by ity of capsule 00:00: mouth in [place] 00 the Medical morning Branch and 1 capsule in the evening. traZODone 2022-0 Yes [id number] 50mg Take 1 U nivers 50 mg 1-04 tablet by ity of tablet 00:00: mouth at [place] 00 bedtime. Medical May cut Branch tablet in half. clonazePAM 2022-0 Yes [id number] Take 1 U nivers 1 mg tablet 1-04 tablet by ity of 00:00: mouth [place] 00 twice Medical daily as Branch needed for anxiety. lithium 2022-0 Yes [id number] 900mg Take 2 [facility] vers carbonate 1-04 tablets by ity of CR 450 mg 00:00: [place] tablet 00 bedtime. Medica l Branch DULoxetine 2022-0 Yes [id number] 60mg Take 1 U nivers 60 mg 1-04 capsule by ity of capsule 00:00: mouth in [place] 00 the Medical morning Branch and 1 capsule in the evening. traZODone 2022-0 Yes [id number] 50mg Take 1 U nivers 50 mg 1-04 tablet by ity of tablet 00:00: mouth at [place] [address] bedtime. Medical May cut Branch tablet in half. clonazePAM 2022-0 Yes [id number] Take 1 U nivers 1 mg tablet 1-04 tablet by ity of 00:00: mouth [place] 00 twice Medical daily as Branch needed for anxiety. lithium 2022-0 Yes [id number] 900mg Take 2 [facility] vers carbonate 1-04 tablets by ity of CR 450 mg 00:00: [place] 00 bedtime. Medica l Branch DULoxetine 2022-0 Yes [id number] 60mg Take 1 U nivers 60 mg 1-04 capsule by ity of capsule 00:00: mouth in [place] 00 the Medical morning Branch and 1 capsule in the evening. traZODone 2022-0 Yes [id number] 50mg Take 1 U nivers 50 mg 1-04 tablet by ity of tablet 00:00: mouth at [place] 00 bedtime. Medical May cut Branch tablet in half. clonazePAM 2022-0 Yes [id number] Take 1 U nivers 1 mg tablet 1-04 tablet by ity of 00:00: mouth [place] 00 twice Medical daily as Branch needed for anxiety. lithium 2022-0 Yes [id number] 900mg Take 2 [facility] vers carbonate 1-04 tablets by ity of CR 450 mg 00:00: [place] tablet 00 bedtime. Medica l Branch lamoTRIgine 2022-0 3- No [id number] 100mg Take 1 [facility] 100 mg 02-15 tablet by ity of tablet 00:00: 00:00 mouth in [place] 00 :00 the Medical morning Branch and 1 tablet in the evening. lamoTRIgine 2022-0 3- No [id number] 100mg Take 1 [facility] 100 mg 02-15 tablet by ity of tablet 00:00: 00:00 mouth in [place] 00 :00 the Medical morning Branch and 1 tablet in the evening. lamoTRIgine 2022-0 3- No [id number] 100mg Take 1 [facility] 100 mg 02-15 tablet by ity of tablet 00:00: 00:00 mouth in [place] 00 :00 the Medical morning Branch and 1 tablet in the evening. lamoTRIgine 202-0 3- No [id number] 100mg Take 1 [facility] 100 mg -03-09 tablet by ity of tablet 00:00: 00:00 mouth in [place] 00 :00 the Medical morning Branch and 1 tablet in the evening. lithium 600 2022-0 2022- No [id number] 600mg Take 1 [facility] mg capsule 02-15 capsule by it y of 00:00: 00:00 mouth in [place] 00 :00 the Medical morning Branch and 1 capsule in the evening. lithium 600 2022-0 3- No [id number] 600mg Take 1 [facility] mg capsule 02-15 capsule by it y of 00:00: 00:00 mouth in [place] 00 :00 the Medical morning Branch and 1 capsule in the evening. lithium 600 2022-0 3- No [id number] 600mg Take 1 [facility] mg capsule 02-15 capsule by it y of 00:00: 00:00 mouth in [place] 00 :00 the Medical morning Branch and 1 capsule in the evening. lithium 600 2022-0 3- No [id number] 600mg Take 1 [facility] mg capsule 02-15 capsule by it y of 00:00: 00:00 mouth in [place] 00 :00 the Medical morning Branch and 1 capsule in the evening. lithium 600 2022-0 3- No [id number] 600mg Take 1 [facility] mg capsule 02-15 capsule by it y of 00:00: 00:00 mouth in [place] 00 :00 the Medical morning Branch and 1 capsule in the evening. lithium 600 2022-0 2022- No [id number] 600mg Take 1 [facility] mg capsule 02-15 capsule by it y of 00:00: 00:00 mouth in [place] 00 :00 the Medical morning Branch and 1 capsule in the evening. lithium 600 2022-0 3- No [id number] 600mg Take 1 [facility] mg capsule 02-15 capsule by it y of 00:00: 00:00 mouth in [place] 00 :00 the Medical morning Branch and 1 capsule in the evening. lithium 600 2022-0 3- No [id number] 600mg Take 1 [facility] mg capsule 02-15 capsule by it y of 00:00: 00:00 mouth in [place] 00 :00 the Medical morning Branch and 1 capsule in the evening. DULoxetine 2021-02 Yes [id number] 60mg Take 1 U nivers 60 mg 2-28 capsule by ity of capsule 00:00: mouth in [place] 00 the Medical morning Branch and 1 capsule in the evening. DULoxetine 2021-023- No [id number] 60mg Take 1 [facility] 60 mg 2-28 -04 capsule by ity of capsule 00:00: 00:00 mouth in [place] 00 :00 the Medical morning Branch and 1 capsule in the evening. DULoxetine 2021-02- No [id number] 60mg Take 1 [facility] 60 mg 2-28 01-04 capsule by ity of capsule 00:00: 00:00 mouth in [place] 00 :00 the Medical morning Branch and 1 capsule in the evening. DULoxetine 2021-02- No [id number] 60mg Take 1 [facility] 60 mg 2-28 01-04 capsule by ity of capsule 00:00: 00:00 mouth in [place] 00 :00 the Medical morning Branch and 1 capsule in the evening. DULoxetine 2021-02- No [id number] 60mg Take 1 [facility] 60 mg 2-28 01-04 capsule by ity of capsule 00:00: 00:00 mouth in [place] 00 :00 the Medical morning Branch and 1 capsule in the evening. DULoxetine 2021-02- No [id number] 60mg Take 1 [facility] 60 mg 2-28 01-04 capsule by ity of capsule 00:00: 00:00 mouth in [place] 00 :00 the Medical morning Branch and 1 capsule in the evening. DULoxetine 2021-02- No [id number] 60mg Take 1 [facility] 60 mg 2-28 01-04 capsule by ity of capsule 00:00: 00:00 mouth in [place] 00 :00 the Medical morning Branch and 1 capsule in the evening. DULoxetine 2021-02- No [id number] 60mg Take 1 [facility] 60 mg 2-28 01-04 capsule by ity of capsule 00:00: 00:00 mouth in [place] 00 :00 the Medical morning Branch and 1 capsule in the evening. DULoxetine 2021-02- No [id number] 60mg Take 1 [facility] 60 mg 2-28 01-04 capsule by ity of capsule 00:00: 00:00 mouth in [place] 00 :00 the Medical morning Branch and 1 capsule in the evening. lamoTRIgine 2021-02 Yes [id number] 100mg Take 1 [facility] 100 mg 2-22 tablet by ity of tablet 00:00: mouth in [place] 00 the Medical morning Branch and 1 tablet in the evening. lamoTRIgine 2021-02 Yes [id number] 100mg Take 1 [facility] 100 mg 2-22 tablet by ity of tablet 00:00: mouth in [place] 00 the Medical morning Branch and 1 tablet in the evening. lamoTRIgine 2021-02- No [id number] 100mg Take 1 [facility] 100 mg 2- tablet by ity of tablet 00:00: 00:00 mouth in [place] 00 :00 the Medical morning Branch and 1 tablet in the evening. lamoTRIgine 2021-2022- No [id number] 100mg Take 1 [facility] 100 mg 2-05 03- tablet by ity of tablet 00:00: 00:00 mouth in [place] 00 :00 the Medical morning Branch and 1 tablet in the evening. lamoTRIgine 2021-2022- No [id number] 100mg Take 1 [facility] 100 mg 2- tablet by ity of tablet 00:00: 00:00 mouth in [place] 00 :00 the Medical morning Branch and 1 tablet in the evening. lamoTRIgine 2021-02- No [id number] 100mg Take 1 [facility] 100 mg 2- tablet by ity of tablet 00:00: 00:00 mouth in [place] 00 :00 the Medical morning Branch and 1 tablet in the evening. lamoTRIgine 2021-02- No [id number] 100mg Take 1 [facility] 100 mg 2- tablet by ity of tablet 00:00: 00:00 mouth in [place] 00 :00 the Medical morning Branch and 1 tablet in the evening. lamoTRIgine 2021-02- No [id number] 100mg Take 1 [facility] 100 mg 2- tablet by ity of tablet 00:00: 00:00 mouth in [place] 00 :00 the Medical morning Branch and 1 tablet in the evening. lamoTRIgine 2021-02- No [id number] 100mg Take 1 [facility] 100 mg 2- tablet by ity of tablet 00:00: 00:00 mouth in [place] 00 :00 the Medical morning Branch and 1 tablet in the evening. lamoTRIgine 2021-3- No [id number] 100mg Take 1 [facility] 100 mg 2-05 03- tablet by ity of tablet 00:00: 00:00 mouth in [place] 00 :00 the Medical morning Branch and 1 tablet in the evening. traZODone 2021- Yes [id number] 50mg Take 1 U nivers 50 mg 1-30 tablet by ity of tablet 00:00: mouth at [place] 00 bedtime. Medical May cut Branch tablet in half. lamoTRIgine 2021-02 Yes [id number] 100mg Take 1 [facility] 100 mg 1-30 tablet by ity of tablet 00:00: mouth in [place] 00 the Medical morning Branch and 1 tablet in the evening. traZODone 2021-02 Yes [id number] 50mg Take 1 U nivers 50 mg 1-30 tablet by ity of tablet 00:00: mouth at [place] 00 bedtime. Medical May cut Branch tablet in half. lamoTRIgine 2021-02 Yes [id number] 100mg Take 1 [facility] 100 mg 1-30 tablet by ity of tablet 00:00: mouth in [place] 00 the Medical morning Branch and 1 tablet in the evening. traZODone 2021-02 Yes [id number] 50mg Take 1 U nivers 50 mg 1-30 tablet by ity of tablet 00:00: mouth at [place] [address] bedtime. Medical May cut Branch tablet in half. lamoTRIgine 2021-02 Yes [id number] 100mg Take 1 [facility] 100 mg 1-30 tablet by ity of tablet 00:00: mouth in [place] 00 the Medical morning Branch and 1 tablet in the evening. traZODone 2021-02 Yes [id number] 50mg Take 1 U nivers 50 mg 1-30 tablet by ity of tablet 00:00: mouth at [place] [address] bedtime. Medical May cut Branch tablet in half. traZODone 2021-02 Yes [id number] 50mg Take 1 U nivers 50 mg 1-30 tablet by ity of tablet 00:00: mouth at [place] 00 bedtime. Medical May cut Branch tablet in half. traZODone 2021-02- No [id number] 50mg Take 1 [facility] 50 mg 1-30 -04 tablet by ity of tablet 00:00: 00:00 mouth at [place] 00 :00 bedtime. Medical May cut Branch tablet in half. traZODone 2021-02- No [id number] 50mg Take 1 [facility] 50 mg 1-30 -04 tablet by ity of tablet 00:00: 00:00 mouth at [place] 00 :00 bedtime. Medical May cut Branch tablet in half. traZODone 2021-02- No [id number] 50mg Take 1 [facility] 50 mg 1-30 -04 tablet by ity of tablet 00:00: 00:00 mouth at [place] 00 :00 bedtime. Medical May cut Branch tablet in half. traZODone 2021-02- No [id number] 50mg Take 1 [facility] 50 mg 1-30 -04 tablet by ity of tablet 00:00: 00:00 mouth at [place] 00 :00 bedtime. Medical May cut Branch tablet in half. traZODone 2021-02- No [id number] 50mg Take 1 [facility] 50 mg 1-30 -04 tablet by ity of tablet 00:00: 00:00 mouth at [place] 00 :00 bedtime. Medical May cut Branch tablet in half. traZODone 2021-02- No [id number] 50mg Take 1 [facility] 50 mg 1-30 -04 tablet by ity of tablet 00:00: 00:00 mouth at [place] 00 :00 bedtime. Medical May cut Branch tablet in half. traZODone 2021-02- No [id number] 50mg Take 1 [facility] 50 mg 1-30 -04 tablet by ity of tablet 00:00: 00:00 mouth at [place] 00 :00 bedtime. Medical May cut Branch tablet in half. traZODone 2021-02- No [id number] 50mg Take 1 [facility] 50 mg 1-30 -04 tablet by ity of tablet 00:00: 00:00 mouth at [place] 00 :00 bedtime. Medical May cut Branch tablet in half. lamoTRIgine 2021-02- No [id number] 100mg Take 1 [facility] 100 mg 1-30 12-22 tablet by ity of tablet 00:00: 00:00 mouth in [place] 00 :00 the Medical morning Branch and 1 tablet in the evening. lamoTRIgine 2021-02- No [id number] 100mg Take 1 [facility] 100 mg 1-30 12-22 tablet by ity of tablet 00:00: 00:00 mouth in [place] 00 :00 the Medical morning Branch and 1 tablet in the evening. lamoTRIgine 2021-02- No [id number] 100mg Take 1 [facility] 100 mg 1-30 12-22 tablet by ity of tablet 00:00: 00:00 mouth in [place] 00 :00 the Medical morning Branch and 1 tablet in the evening. lamoTRIgine 2021-02- No [id number] 100mg Take 1 [facility] 100 mg 1-30 12-22 tablet by ity of tablet 00:00: 00:00 mouth in [place] 00 :00 the Medical morning Branch and 1 tablet in the evening. lamoTRIgine 2021-02- No [id number] 100mg Take 1 [facility] 100 mg 1-30 12-22 tablet by ity of tablet 00:00: 00:00 mouth in [place] 00 :00 the Medical morning Branch and 1 tablet in the evening. DULoxetine 2021-02 Yes [id number] 60mg Take 1 U nivers 60 mg 1-28 capsule by ity of capsule 00:00: mouth in [place] 00 the Medical morning Branch and 1 capsule in the evening. clonazePAM 2021-02 Yes [id number] Take 1 U nivers 1 mg tablet 1-28 tablet by ity of 00:00: mouth [place] 00 twice Medical daily as Branch needed for anxiety. DULoxetine 2021-02 Yes [id number] 60mg Take 1 U nivers 60 mg 1-28 capsule by ity of capsule 00:00: mouth in [place] 00 the Medical morning Branch and 1 capsule in the evening. clonazePAM 2021-02 Yes [id number] Take 1 U nivers 1 mg tablet 1-28 tablet by ity of 00:00: mouth [place] 00 twice Medical daily as Branch needed for anxiety. DULoxetine 2021-02 Yes [id number] 60mg Take 1 U nivers 60 mg 1-28 capsule by ity of capsule 00:00: mouth in [place] 00 the Medical morning Branch and 1 capsule in the evening. clonazePAM 2021-02 Yes [id number] Take 1 U nivers 1 mg tablet 1-28 tablet by ity of 00:00: mouth [place] 00 twice Medical daily as Branch needed for anxiety. DULoxetine 2021-02 Yes [id number] 60mg Take 1 U nivers 60 mg 1-28 capsule by ity of capsule 00:00: mouth in [place] 00 the Medical morning Branch and 1 capsule in the evening. clonazePAM 2021-02 Yes [id number] Take 1 U nivers 1 mg tablet 1-28 tablet by ity of 00:00: mouth [place] 00 twice Medical daily as Branch needed for anxiety. DULoxetine 2021-02 Yes [id number] 60mg Take 1 U nivers 60 mg 1-28 capsule by ity of capsule 00:00: mouth in [place] 00 the Medical morning Branch and 1 capsule in the evening. clonazePAM 2021-02 Yes [id number] Take 1 U nivers 1 mg tablet 1-28 tablet by ity of 00:00: mouth [place] 00 twice Medical daily as Branch needed for anxiety. DULoxetine 2021-02 Yes [id number] 60mg Take 1 U nivers 60 mg 1-28 capsule by ity of capsule 00:00: mouth in [place] 00 the Medical morning Branch and 1 capsule in the evening. clonazePAM 2021-02 Yes [id number] Take 1 U nivers 1 mg tablet 1-28 tablet by ity of 00:00: mouth [place] 00 twice Medical daily as Branch needed for anxiety. clonazePAM 2021-02 Yes [id number] Take 1 U nivers 1 mg tablet 1-28 tablet by ity of 00:00: mouth [place] 00 twice Medical daily as Branch needed for anxiety. clonazePAM 2021-02- No [id number] Take 1 [facility] 1 mg tablet 03-11 tablet by it y of 00:00: 00:00 mouth [place] 00 :00 twice Medical daily as Branch needed for anxiety. clonazePAM 2021-02- No [id number] Take 1 [facility] 1 mg tablet 03-11 tablet by it y of 00:00: 00:00 mouth [place] 00 :00 twice Medical daily as Branch needed for anxiety. clonazePAM 2021-02- No [id number] Take 1 [facility] 1 mg tablet 03-11- tablet by it y of 00:00: 00:00 mouth [place] 00 :00 twice Medical daily as Branch needed for anxiety. clonazePAM 2021-02- No [id number] Take 1 [facility] 1 mg tablet 03-11 tablet by it y of 00:00: 00:00 mouth [place] 00 :00 twice Medical daily as Branch needed for anxiety. clonazePAM 2021-02- No [id number] Take 1 [facility] 1 mg tablet 03-11 tablet by it y of 00:00: 00:00 mouth [place] 00 :00 twice Medical daily as Branch needed for anxiety. clonazePAM 2021-02- No [id number] Take 1 [facility] 1 mg tablet 03-11- tablet by it y of 00:00: 00:00 mouth [place] 00 :00 twice Medical daily as Branch needed for anxiety. clonazePAM 2021-02- No [id number] Take 1 [facility] 1 mg tablet 03-11- tablet by it y of 00:00: 00:00 mouth [place] 00 :00 twice Medical daily as Branch needed for anxiety. clonazePAM 2021-02- No [id number] Take 1 [facility] 1 mg tablet 03-11- tablet by it y of 00:00: 00:00 mouth [place] 00 :00 twice Medical daily as Branch needed for anxiety. DULoxetine 2021-02- No [id number] 60mg Take 1 [facility] 60 mg 1-28 12-27 capsule by it[facility] of capsule 00:00: 00:00 mouth in [place] 00 :00 the Medical morning Branch and 1 capsule in the evening. DULoxetine 2021-02- No [id number] 60mg Take 1 [facility] 60 mg 1-28 12-27 capsule by ity of capsule 00:00: 00:00 mouth in [place] 00 :00 the Medical morning Branch and 1 capsule in the evening. DULoxetine 2021-02- No [id number] 60mg Take 1 [facility] 60 mg 1-28 12-27 capsule by ity of capsule 00:00: 00:00 mouth in [place] 00 :00 the Medical morning Branch and 1 capsule in the evening. DULoxetine 2021-02- No [id number] 60mg Take 1 [facility] 60 mg 1-28 12-27 capsule by ity of capsule 00:00: 00:00 mouth in [place] 00 :00 the Medical morning Branch and 1 capsule in the evening. DULoxetine 2021-02- No [id number] 60mg Take 1 [facility] 60 mg 1-28 12-27 capsule by ity of capsule 00:00: 00:00 mouth in [place] 00 :00 the Medical morning Branch and 1 capsule in the evening. traZODone 2021-02 Yes [id number] 50mg Take 1 [facility] n[facility] 50 mg 1-22 tablet by ity of tablet 00:00: mouth at [place] [address] bedtime. Medical May cut Branch tablet in half. traZODone 2021-02 Yes [id number] 50mg Take 1 [facility] nivers 50 mg 1-22 tablet by ity of tablet 00:00: mouth at [place] [address] bedtime. Medical May cut Branch tablet in half. traZODone 2021-02 Yes [id number] 50mg Take 1 [facility] nivers 50 mg 1-22 tablet by ity of tablet 00:00: mouth at [place] 00 bedtime. Medical May cut Branch tablet in half. traZODone 2021-02- No [id number] 50mg Take 1 [facility] 50 mg 1-22 11-30 tablet by ity of tablet 00:00: 00:00 mouth at [place] 00 :00 bedtime. Medical May cut Branch tablet in half. traZODone 2021-02- No [id number] 50mg Take 1 [facility] 50 mg 1-22 11-30 tablet by ity of tablet 00:00: 00:00 mouth at [place] 00 :00 bedtime. Medical May cut Branch tablet in half. traZODone 2021-02- No [id number] 50mg Take 1 [facility] 50 mg 1-22 11-30 tablet by ity of tablet 00:00: 00:00 mouth at [place] 00 :00 bedtime. Medical May cut Branch tablet in half. traZODone 2021-02 No [id number] 50mg Take 1 [facility] 50 mg 1-22 11-30 tablet by ity of tablet 00:00: 00:00 mouth at [place] 00 :00 bedtime. Medical May cut Branch tablet in half. traZODone 2021-02 No [id number] 50mg Take 1 [facility] 50 mg 1-22 11-30 tablet by ity of tablet 00:00: 00:00 mouth at [place] 00 :00 bedtime. Medical May cut Branch tablet in half. DULoxetine 2021-02 Yes [id number] 60mg Take 1 [facility] 60 mg 0-25 capsule by ity of capsule 00:00: mouth in [place] 00 the Medical morning Branch and 1 capsule in the evening. DULoxetine 2021-02 Yes [id number] 60mg Take 1 [facility] 60 mg 0-25 capsule by ity of capsule 00:00: mouth in [place] 00 the Medical morning Branch and 1 capsule in the evening. DULoxetine 2021-02 Yes [id number] 60mg Take 1 [facility] 60 mg 0-25 capsule by ity of capsule 00:00: mouth in [place] 00 the Medical morning Branch and 1 capsule in the evening. DULoxetine 2021-02- No [id number] 60mg Take 1 [facility] 60 mg 0-25 11-28 capsule by ity of capsule 00:00: 00:00 mouth in [place] 00 :00 the Medical morning Branch and 1 capsule in the evening. DULoxetine 2021-02- No [id number] 60mg Take 1 [facility] 60 mg 0-25 11-28 capsule by ity of capsule 00:00: 00:00 mouth in [place] 00 :00 the Medical morning Branch and 1 capsule in the evening. DULoxetine 2021-02- No [id number] 60mg Take 1 [facility] 60 mg 0-25 11-28 capsule by ity of capsule 00:00: 00:00 mouth in [place] 00 :00 the Medical morning Branch and 1 capsule in the evening. DULoxetine 2021-02- No [id number] 60mg Take 1 [facility] 60 mg 0-25 11-28 capsule by ity of capsule 00:00: 00:00 mouth in [place] 00 :00 the Medical morning Branch and 1 capsule in the evening. DULoxetine 2021-02- No [id number] 60mg Take 1 [facility] 60 mg 0-25 11-28 capsule by ity of capsule 00:00: 00:00 mouth in [place] 00 :00 the [facility] morning Branch and 1 capsule in the evening. clonazePAM 2021-02 Yes [id number] Take 1 U nivers 1 mg tablet 0-20 tablet by ity of 00:00: mouth [place] [address] twice Medical daily as Branch needed for anxiety. lithium 600 2021-02 Yes [id number] 600mg Take 1 [facility] mg capsule 0-20 capsule by ity of 00:00: mouth in [place] 00 the [facility] morning [place] and 1 capsule in the evening. lamoTRIgine 2021-02 Yes [id number] 50mg Take 2 [facility] 25 mg 0-20 tablets by ity of tablet 00:00: mouth in [place] 00 the [facility] morning Branch and 2 tablets in the evening. clonazePAM 2021-02 Yes [id number] Take 1 U nivers 1 mg tablet 0-20 tablet by ity of 00:00: mouth [place] [address] twice Medical daily as Branch needed for anxiety. lithium 600 2021-02 Yes [id number] 600mg Take 1 [facility] mg capsule 0-20 capsule by ity of 00:00: mouth in [place] [address] the [facility] morning [place] and 1 capsule in the evening. lamoTRIgine 2021-02 Yes [id number] 50mg Take 2 [facility] 25 mg 0-20 tablets by ity of tablet 00:00: mouth in [place] [address] the [facility] and 2 tablets in the evening. clonazePAM 2021-02 Yes [id number] Take 1 U nivers 1 mg tablet 0-20 tablet by ity of 00:00: mouth [place] [address] twice Medical daily as Branch needed for anxiety. lithium 600 2021-02 Yes [id number] 600mg Take 1 [facility] mg capsule 0-20 capsule by ity of 00:00: mouth in [place] [address] the [facility] and 1 capsule in the evening. lamoTRIgine 2021-02 Yes [id number] 50mg Take 2 [facility] 25 mg 0-20 tablets by ity of tablet 00:00: mouth in [address] and 2 tablets in the evening. lithium 600 2021-02 Yes [id number] 600mg Take 1 [facility] mg capsule 0-20 capsule by ity of 00:00: mouth in [address] and 1 capsule in the evening. lamoTRIgine 2021-02 Yes [id number] 50mg Take 2 [facility] 25 mg 0-20 tablets by ity of tablet 00:00: mouth in [address] and 2 tablets in the evening. lithium 600 2021-02 Yes [id number] 600mg Take 1 [facility] mg capsule 0-20 capsule by ity of 00:00: mouth in [address] and 1 capsule in the evening. lamoTRIgine 2021-02 Yes [id number] 50mg Take 2 [facility] 25 mg 0-20 tablets by ity of tablet 00:00: mouth in [address] and 2 tablets in the evening. lithium 600 2021-02 Yes [id number] 600mg Take 1 [facility] mg capsule 0-20 capsule by ity of 00:00: mouth in [address] and 1 capsule in the evening. lithium 600 2021-02 Yes [id number] 600mg Take 1 [facility] mg capsule 0-20 capsule by ity of 00:00: mouth in [address] and 1 capsule in the evening. lithium 600 2021-02 Yes [id number] 600mg Take 1 [facility] mg capsule 0-20 capsule by ity of 00:00: mouth in [address] and 1 capsule in the evening. lithium 600 2021-02 Yes [id number] 600mg Take 1 [facility] mg capsule 0-20 capsule by ity of 00:00: mouth in [place] 00 the Medical morning Branch and 1 capsule in the evening. lithium 600 2021- Yes [id number] 600mg Take 1 [facility] mg capsule 0-20 capsule by ity of 00:00: mouth in [place] 00 the Medical morning Branch and 1 capsule in the evening. lithium 600 2021-3- No [id number] 600mg Take 1 [facility] mg capsule 0-20 01-04 capsule by it y of 00:00: 00:00 mouth in [place] 00 :00 the Medical morning Branch and 1 capsule in the evening. lithium 600 2021-3- No [id number] 600mg Take 1 [facility] mg capsule 0-20 01-04 capsule by it y of 00:00: 00:00 mouth in [place] 00 :00 the Medical morning Branch and 1 capsule in the evening. lithium 600 2021-3- No [id number] 600mg Take 1 [facility] mg capsule 0-20 01-04 capsule by it y of 00:00: 00:00 mouth in [place] 00 :00 the Medical morning Branch and 1 capsule in the evening. lithium 600 2021-3- No [id number] 600mg Take 1 [facility] mg capsule 0-20 01-04 capsule by it y of 00:00: 00:00 mouth in [place] 00 :00 the Medical morning Branch and 1 capsule in the evening. lithium 600 2021-3- No [id number] 600mg Take 1 [facility] mg capsule 0-20 01-04 capsule by it y of 00:00: 00:00 mouth in [place] 00 :00 the Medical morning Branch and 1 capsule in the evening. lithium 600 2021-3- No [id number] 600mg Take 1 [facility] mg capsule 0-20 01-04 capsule by it y of 00:00: 00:00 mouth in [place] 00 :00 the Medical morning Branch and 1 capsule in the evening. lithium 600 2021-3- No [id number] 600mg Take 1 [facility] mg capsule 0-20 01-04 capsule by it y of 00:00: 00:00 mouth in [place] 00 :00 the Medical morning Branch and 1 capsule in the evening. lithium 600 2021-3- No [id number] 600mg Take 1 [facility] mg capsule 0-20 01-04 capsule by it y of 00:00: 00:00 mouth in [place] 00 :00 the Medical morning Branch and 1 capsule in the evening. lamoTRIgine 2021- No [id number] 50mg Take 2 [facility] 25 mg 0-20 11-30 tablets by ity of tablet 00:00: 00:00 mouth in [place] 00 :00 the Medical morning Branch and 2 tablets in the evening. lamoTRIgine 2021-2021- No [id number] 50mg Take 2 [facility] 25 mg 0-20 11-30 tablets by ity of tablet 00:00: 00:00 mouth in [place] 00 :00 the Medical morning Branch and 2 tablets in the evening. lamoTRIgine 2021-2021- No [id number] 50mg Take 2 [facility] 25 mg 0-20 11-30 tablets by ity of tablet 00:00: 00:00 mouth in [place] 00 :00 the Medical morning Branch and 2 tablets in the evening. lamoTRIgine 2021-02- No [id number] 50mg Take 2 [facility] 25 mg 0-20 11-30 tablets by ity of tablet 00:00: 00:00 mouth in [place] 00 :00 the Medical morning Branch and 2 tablets in the evening. lamoTRIgine 2021-02- No [id number] 50mg Take 2 [facility] 25 mg 0-20 11-30 tablets by ity of tablet 00:00: 00:00 mouth in [place] 00 :00 the Medical morning Branch and 2 tablets in the evening. clonazePAM 2021-02- No [id number] Take 1 [facility] 1 mg tablet 0-20 11-28 tablet by it y of 00:00: 00:00 mouth [place] 00 :00 twice Medical daily as Branch needed for anxiety. clonazePAM 2021-02- No [id number] Take 1 [facility] 1 mg tablet 0-20 11-28 tablet by it y of 00:00: 00:00 mouth [place] 00 :00 twice Medical daily as Branch needed for anxiety. clonazePAM 2021-02- No [id number] Take 1 [facility] 1 mg tablet 0-20 11-28 tablet by it y of 00:00: 00:00 mouth [place] 00 :00 twice Medical daily as Branch needed for anxiety. clonazePAM 2021-02- No [id number] Take 1 [facility] 1 mg tablet 0-20 11-28 tablet by it y of 00:00: 00:00 mouth [place] 00 :00 twice Medical daily as Branch needed for anxiety. clonazePAM 2021-02- No [id number] Take 1 [facility] 1 mg tablet 0-20 11-28 tablet by it y of 00:00: 00:00 mouth [place] 00 :00 twice Medical daily as Branch needed for anxiety. lamoTRIgine 0 Yes [id number] 50mg Take 2 [facility] 25 mg 8-26 tablets by ity of tablet 00:00: mouth in [place] 00 the Medical morning Branch and 2 tablets in the evening. lamoTRIgine 2021- No [id number] 50mg Take 2 [facility] 25 mg 8-26 10-19 tablets by ity of tablet 00:00: 00:00 mouth in [place] 00 :00 the Medical morning Branch and 2 tablets in the evening. lamoTRIgine 2021- No [id number] 50mg Take 2 [facility] 25 mg 8-26 10-19 tablets by ity of tablet 00:00: 00:00 mouth in [place] 00 :00 the Medical morning Branch and 2 tablets in the evening. clonazePAM Yes [id number] Take no [facility] 1 mg tablet 8-25 more than ity of 00:00: 1 mg twice [place] 00 daily as Medical needed for Branch anxiety lithium 600 0 Yes [id number] 600mg Take 1 [facility] mg capsule 8-25 capsule by ity of 00:00: mouth in [place] 00 the Medical morning Branch and 1 capsule in the evening. clonazePAM 2021- No [id number] Take no [facility] 1 mg tablet 8-25 10-19 more than it y of 00:00: 00:00 1 mg twice [place] 00 :00 daily as Medical needed for Branch anxiety lithium 600 2021-0 2021- No [id number] 600mg Take 1 [facility] mg capsule 8-25 10-19 capsule by it y of 00:00: 00:00 mouth in [place] 00 :00 the Medical morning Branch and 1 capsule in the evening. clonazePAM 2021-0 2021- No [id number] Take no [facility] 1 mg tablet 8-25 10-19 more than it y of 00:00: 00:00 1 mg twice [place] 00 :00 daily as Medical needed for Branch anxiety lithium 600 2021-0 2021- No [id number] 600mg Take 1 [facility] mg capsule 8-25 10-19 capsule by it y of 00:00: 00:00 mouth in [place] 00 :00 the Medical morning Branch and 1 capsule in the evening. Lamotrigine 2021-2021- No [id number] 50mg Take 1 [facility] 50 mg 8-25 08-26 tablet by ity of tablet 00:00: 00:00 mouth in [place] 00 :00 the Medical morning Branch and 1 tablet in the evening. Lamotrigine 2021-2021- No [id number] 50mg Take 1 [facility] 50 mg 8-11 08-25 tablet by ity of tablet 00:00: 00:00 mouth in [place] 00 :00 the Medical morning Branch and 1 tablet in the evening. DULoxetine 2021-0 Yes [id number] 60mg Take 1 [facility] nivers 60 mg 7-27 capsule by ity of capsule 00:00: mouth in [place] 00 the Medical morning Branch and 1 capsule in the evening. DULoxetine 2021-2021- No [id number] 60mg Take 1 [facility] 60 mg 7-27 10-24 capsule by ity of capsule 00:00: 00:00 mouth in [place] 00 :00 the [facility] morning [place] and 1 capsule in the evening. DULoxetine 2021-2021- No [id number] 60mg Take 1 [facility] 60 mg 7-27 10-24 capsule by ity of capsule 00:00: 00:00 mouth in [place] 00 :00 the Medical morning Branch and 1 capsule in the evening. DULoxetine 2021-0 2021- No [id number] 60mg Take 1 [facility] 60 mg 7-27 10-24 capsule by ity of capsule 00:00: 00:00 mouth in [place] 00 :00 the [facility] morning Branch and 1 capsule in the evening. Lamotrigine 2021-0 2021- No [id number] 50mg Take 1 [facility] 50 mg 7-18 08-11 tablet by ity of tablet 00:00: 00:00 mouth in [place] 00 :00 the [facility] morning Branch and 1 tablet in the evening. lithium 600 2021-2021- No [id number] 600mg Take 1 [facility] mg capsule 7-13 08-25 capsule by it y of 00:00: 00:00 mouth in [place] 00 :00 the Medical morning Branch and 1 capsule in the evening. traZODone 2021-0 Yes [id number] 50mg Take 1 U nivers 50 mg 6-28 tablet by ity of tablet 00:00: mouth at [place] 00 bedtime. [facility] May cut Branch tablet in half. DULoxetine 2022-0 Yes [id number] 60mg Take 1 U nivers 60 mg 6-28 capsule by ity of capsule 00:00: mouth 2 [place] (two) Medical times Branch daily. traZODone 2021-0 Yes [id number] 50mg Take 1 U nivers 50 mg 6-28 tablet by ity of tablet 00:00: mouth at [place] [address] bedtime. Medical May cut Branch tablet in half. DULoxetine 0 Yes [id number] 60mg Take 1 U nivers 60 mg 6-28 capsule by ity of capsule 00:00: mouth 2 [place] [address] (two) Medical times Branch daily. traZODone 0 Yes [id number] 50mg Take 1 U nivers 50 mg 6-28 tablet by ity of tablet 00:00: mouth at [place] [address] bedtime. Medical May cut Branch tablet in half. DULoxetine 0 Yes [id number] 60mg Take 1 U nivers 60 mg 6-28 capsule by ity of capsule 00:00: mouth 2 [place] [address] (two) Medical times Branch daily. DULoxetine Yes [id number] 60mg Take 1 U nivers 60 mg 6-28 capsule by ity of capsule 00:00: mouth 2 [place] [address] (two) Medical times Branch daily. traZODone 2021-2021- No [id number] 50mg Take 1 [facility] 50 mg 6-28 11-21 tablet by ity of tablet 00:00: 00:00 mouth at [place] 00 :00 bedtime. Medical May cut Branch tablet in half. traZODone 2021-0 2021- No [id number] 50mg Take 1 [facility] 50 mg 6-28 11-21 tablet by ity of tablet 00:00: 00:00 mouth at [place] 00 :00 bedtime. Medical May cut Branch tablet in half. traZODone 2021-0 2021- No [id number] 50mg Take 1 [facility] 50 mg 6-28 11-21 tablet by ity of tablet 00:00: 00:00 mouth at [place] 00 :00 bedtime. Medical May cut Branch tablet in half. traZODone 2021-0 2021- No [id number] 50mg Take 1 [facility] 50 mg 6-28 11-21 tablet by ity of tablet 00:00: 00:00 mouth at [place] 00 :00 bedtime. Medical May cut Branch tablet in half. traZODone 2021- No [id number] 50mg Take 1 [facility] 50 mg 6- 11-21 tablet by ity of tablet 00:00: 00:00 mouth at [place] 00 :00 bedtime. Medical May cut Branch tablet in half. clonazePAM 2021- No [id number] Take no [facility] 1 mg tablet 08-09 08-25 more than it y of 00:00: 00:00 1 mg twice [place] 00 :00 daily as Medical needed for Branch anxiety vitamin 0 Yes [id number] 1000ug Take 1 U nivers B-12 1,000 4-11 tablet by ity of mcg tablet 00:00: mouth [place] 00 daily. Medical Branch cyanocobala Yes [id number] 1000ug 1 mL by [facility] min 1,000 4-11 Intramuscu ity of mcg/mL 00:00: lar route [place] injection 00 weekly. Medical Branch vitamin 0 Yes [id number] 1000ug Take 1 U nivers B-12 1,000 4-11 tablet by ity of mcg tablet 00:00: mouth [place] 00 daily. Medical Branch cyanocobala Yes [id number] 1000ug 1 mL by [facility] min 1,000 4-11 Intramuscu ity of mcg/mL 00:00: lar route [place] injection 00 weekly. Medical Branch vitamin 0 Yes [id number] 1000ug Take 1 U nivers B-12 1,000 4-11 tablet by ity of mcg tablet 00:00: mouth [place] 00 daily. Medical Branch cyanocobala Yes [id number] 1000ug 1 mL by [facility] min 1,000 4-11 Intramuscu ity of mcg/mL 00:00: lar route [place] injection 00 weekly. Medical Branch vitamin 2021-0 Yes [id number] 1000ug Take 1 U nivers B-12 1,000 4-11 tablet by ity of mcg tablet 00:00: mouth [place] 00 daily. Medical Branch cyanocobala Yes [id number] 1000ug 1 mL by [facility] min 1,000 4-11 Intramuscu ity of mcg/mL 00:00: lar route [place] injection 00 weekly. Medical Branch vitamin 2021-0 Yes [id number] 1000ug Take 1 U nivers B-12 1,000 4-11 tablet by ity of mcg tablet 00:00: mouth [place] 00 daily. Medical Branch cyanocobala 2021-0 Yes [id number] 1000ug 1 mL by [facility] min 1,000 4-11 Intramuscu ity of mcg/mL 00:00: lar route [place] injection 00 weekly. Medical Branch vitamin 2021-0 Yes [id number] 1000ug Take 1 U nivers B-12 1,000 4-11 tablet by ity of mcg tablet 00:00: mouth [place] 00 daily. Medical Branch cyanocobala 2021-0 Yes [id number] 1000ug 1 mL by [facility] min 1,000 4-11 Intramuscu ity of mcg/mL 00:00: lar route [place] injection 00 weekly. Medical Branch vitamin 2021-0 Yes [id number] 1000ug Take 1 U nivers B-12 1,000 4-11 tablet by ity of mcg tablet 00:00: mouth [place] 00 daily. Medical Branch cyanocobala 2021-0 Yes [id number] 1000ug 1 mL by [facility] min 1,000 4-11 Intramuscu ity of mcg/mL 00:00: lar route [place] injection 00 weekly. Medical Branch vitamin 2021-0 Yes [id number] 1000ug Take 1 U nivers B-12 1,000 4-11 tablet by ity of mcg tablet 00:00: mouth [place] 00 daily. Medical Branch cyanocobala 2021-0 Yes [id number] 1000ug 1 mL by [facility] min 1,000 4-11 Intramuscu ity of mcg/mL 00:00: lar route [place] injection 00 weekly. Medical Branch vitamin 2021-0 Yes [id number] 1000ug Take 1 U nivers B-12 1,000 4-11 tablet by ity of mcg tablet 00:00: mouth [place] 00 daily. Medical Branch cyanocobala 2021-0 Yes [id number] 1000ug 1 mL by [facility] min 1,000 4-11 Intramuscu ity of mcg/mL 00:00: lar route [place] injection 00 weekly. [facility] Branch vitamin 2021-0 Yes [id number] 1000ug Take 1 U nivers B-12 1,000 4-11 tablet by ity of mcg tablet 00:00: mouth [place] 00 daily. Medical Branch cyanocobala 2022-0 Yes [id number] 1000ug 1 mL by [facility] min 1,000 4-11 Intramuscu ity of mcg/mL 00:00: lar route [place] injection 00 weekly. Medical Branch vitamin 2021-0 Yes [id number] 1000ug Take 1 U nivers B-12 1,000 4-11 tablet by ity of mcg tablet 00:00: mouth [place] 00 daily. Medical Branch cyanocobala 2021-0 Yes [id number] 1000ug 1 mL by [facility] min 1,000 4-11 Intramuscu ity of mcg/mL 00:00: lar route [place] injection 00 weekly. Medical Branch vitamin 2021-0 Yes [id number] 1000ug Take 1 U nivers B-12 1,000 4-11 tablet by ity of mcg tablet 00:00: mouth [place] 00 daily. Medical Branch cyanocobala 2021-0 Yes [id number] 1000ug 1 mL by [facility] min 1,000 4-11 Intramuscu ity of mcg/mL 00:00: lar route [place] injection 00 weekly. Medical Branch vitamin 2021-0 Yes [id number] 1000ug Take 1 U nivers B-12 1,000 4-11 tablet by ity of mcg tablet 00:00: mouth [place] 00 daily. Medical Branch cyanocobala 2021-0 Yes [id number] 1000ug 1 mL by [facility] min 1,000 4-11 Intramuscu ity of mcg/mL 00:00: lar route [place] injection 00 weekly. Medical Branch vitamin 2021-0 Yes [id number] 1000ug Take 1 U nivers B-12 1,000 4-11 tablet by ity of mcg tablet 00:00: mouth [place] 00 daily. Medical Branch cyanocobala 2021-0 Yes [id number] 1000ug 1 mL by [facility] min 1,000 4-11 Intramuscu ity of mcg/mL 00:00: lar route [place] injection 00 weekly. Medical Branch vitamin 2021-0 Yes [id number] 1000ug Take 1 U nivers B-12 1,000 4-11 tablet by ity of mcg tablet 00:00: mouth [place] 00 daily. Medical Branch cyanocobala 2021-0 Yes [id number] 1000ug 1 mL by [facility] min 1,000 4-11 Intramuscu ity of mcg/mL 00:00: lar route [place] injection 00 weekly. Medical Branch vitamin 2022-0 Yes [id number] 1000ug Take 1 U nivers B-12 1,000 4-11 tablet by ity of mcg tablet 00:00: mouth [place] 00 daily. Medical Branch cyanocobala 2021-0 Yes [id number] 1000ug 1 mL by [facility] min 1,000 4-11 Intramuscu ity of mcg/mL 00:00: lar route [place] injection 00 weekly. Medical Branch vitamin 2021-0 Yes [id number] 1000ug Take 1 U nivers B-12 1,000 4-11 tablet by ity of mcg tablet 00:00: mouth [place] 00 daily. Medical Branch cyanocobala 2021-0 Yes [id number] 1000ug 1 mL by [facility] min 1,000 4-11 Intramuscu ity of mcg/mL 00:00: lar route [place] injection 00 weekly. Medical Branch vitamin 2021-0 Yes [id number] 1000ug Take 1 U nivers B-12 1,000 4-11 tablet by ity of mcg tablet 00:00: mouth [place] 00 daily. Medical Branch cyanocobala 2021-0 Yes [id number] 1000ug 1 mL by [facility] min 1,000 4-11 Intramuscu ity of mcg/mL 00:00: lar route [place] injection 00 weekly. Medical Branch vitamin 2021-0 Yes [id number] 1000ug Take 1 U nivers B-12 1,000 4-11 tablet by ity of mcg tablet 00:00: mouth [place] 00 daily. Medical Branch cyanocobala 2021-0 Yes [id number] 1000ug 1 mL by [facility] min 1,000 4-11 Intramuscu ity of mcg/mL 00:00: lar route [place] injection 00 weekly. Medical Branch vitamin 2021-0 Yes [id number] 1000ug Take 1 U nivers B-12 1,000 4-11 tablet by ity of mcg tablet 00:00: mouth [place] 00 daily. Medical Branch cyanocobala 2021-0 Yes [id number] 1000ug 1 mL by [facility] min 1,000 4-11 Intramuscu ity of mcg/mL 00:00: lar route [place] injection 00 weekly. Medical Branch vitamin 2021-0 Yes [id number] 1000ug Take 1 U nivers B-12 1,000 4-11 tablet by ity of mcg tablet 00:00: mouth [place] 00 daily. Medical Branch cyanocobala Yes [id number] 1000ug 1 mL by [facility] min 1,000 4-11 Intramuscu ity of mcg/mL 00:00: lar route [place] injection 00 weekly. Medical Branch losartan Yes 20mg Take 20 mg Uni vers potassium 4-05 by mouth. ity o f (LOSARTAN 09:24: [place] ORAL) Medical Branch FUROSEMIDE Yes 40mg Take 40 mg U nivers ORAL 4-05 by mouth ity of 09:24: daily. [place] [address] Medical [place] losartan Yes 20mg Take 20 mg Uni vers potassium 4-05 by mouth. ity o f (LOSARTAN 09:24: [place] ORAL) [address] [place] [address] FUROSEMIDE Yes 40mg Take 40 mg U nivers ORAL 4-05 by mouth ity of 09:24: daily. [address] losartan Yes 20mg Take 20 mg Uni vers potassium 4-05 by mouth. ity o f (LOSARTAN 09:24: [place] ORAL) Medical [place] FUROSEMIDE Yes 40mg Take 40 mg U nivers ORAL 4-05 by mouth ity of 09:24: daily. [address] losartan Yes 20mg Take 20 mg Uni vers potassium 4-05 by mouth. ity o f (LOSARTAN 09:24: [place] ORAL) [address] [place] [address] FUROSEMIDE Yes 40mg Take 40 mg U nivers ORAL 4-05 by mouth ity of 09:24: daily. [address] losartan Yes 20mg Take 20 mg Uni vers potassium 4-05 by mouth. ity o f (LOSARTAN 09:24: [place] ORAL) [address] [place] [address] FUROSEMIDE 0 Yes 40mg Take 40 mg U nivers ORAL 4-05 by mouth ity of 09:24: daily. [address] losartan 0 Yes 20mg Take 20 mg Uni vers potassium 4-05 by mouth. ity o f (LOSARTAN 09:24: [place] ORAL) [address] [place] [address] FUROSEMIDE 0 Yes 40mg Take 40 mg U nivers ORAL 4-05 by mouth ity of 09:24: daily. [address] losartan 0 Yes 20mg Take 20 mg Uni vers potassium 4-05 by mouth. ity o f (LOSARTAN 09:24: [place] ORAL) [address] [place] [address] FUROSEMIDE 2022-0 Yes 40mg Take 40 mg U nivers ORAL 4-05 by mouth ity of 09:24: daily. [address] losartan 2021-0 Yes 20mg Take 20 mg Uni vers potassium 4-05 by mouth. ity o f (LOSARTAN 09:24: [place] ORAL) [address] [place] [address] FUROSEMIDE 2021-0 Yes 40mg Take 40 mg U nivers ORAL 4-05 by mouth ity of 09:24: daily. [address] losartan 2021-0 Yes 20mg Take 20 mg [facility] potassium 4-05 by mouth. ity o f (LOSARTAN 09:24: [place] ORAL) [address] [place] [address] FUROSEMIDE 0 Yes 40mg Take 40 mg U nivers ORAL 4-05 by mouth ity of 09:24: daily. [address] losartan 2021-0 Yes 20mg Take 20 mg [facility] vers potassium 4-05 by mouth. ity o f (LOSARTAN 09:24: [place] ORAL) [address] [place] [address] FUROSEMIDE 2021-0 Yes 40mg Take 40 mg U nivers ORAL 4-05 by mouth ity of 09:24: daily. [address] losartan 2021-0 Yes 20mg Take 20 mg [facility] vers potassium 4-05 by mouth. ity o f (LOSARTAN 09:24: [place] ORAL) [address] [place] [address] FUROSEMIDE 2021-0 Yes 40mg Take 40 mg U nivers ORAL 4-05 by mouth ity of 09:24: daily. [address] losartan 2021-0 Yes 20mg Take 20 mg [facility] vers potassium 4-05 by mouth. ity o f (LOSARTAN 09:24: [place] ORAL) [address] [place] [address] FUROSEMIDE 2021-0 Yes 40mg Take 40 mg U nivers ORAL 4-05 by mouth ity of 09:24: daily. [address] losartan 2021-0 Yes 20mg Take 20 mg [facility] potassium 4-05 by mouth. ity o f (LOSARTAN 09:24: [place] ORAL) [address] [place] [address] FUROSEMIDE 2021-0 Yes 40mg Take 40 mg U nivers ORAL 4-05 by mouth ity of 09:24: daily. [address] losartan 2021-0 Yes 20mg Take 20 mg [facility] vers potassium 4-05 by mouth. ity o f (LOSARTAN 09:24: [place] ORAL) [address] [place] [address] FUROSEMIDE 2021-0 Yes 40mg Take 40 mg U nivers ORAL 4-05 by mouth ity of 09:24: daily. [address] losartan 2021-0 Yes 20mg Take 20 mg [facility] vers potassium 4-05 by mouth. ity o f (LOSARTAN 09:24: [place] ORAL) [address] [place] [address] Branch FUROSEMIDE 2021-0 Yes 40mg Take 40 mg U nivers ORAL 4-05 by mouth ity of 09:24: daily. [address] losartan 2021-0 Yes 20mg Take 20 mg [facility] vers potassium 4-05 by mouth. ity o f (LOSARTAN 09:24: [place] ORAL) [address] [place] [address] FUROSEMIDE 2021-0 Yes 40mg Take 40 mg U nivers ORAL 4-05 by mouth ity of 09:24: daily. [address] losartan 2021-0 Yes 20mg Take 20 mg [facility] vers potassium 4-05 by mouth. ity o f (LOSARTAN 09:24: [place] ORAL) [address] [place] [address] FUROSEMIDE 0 Yes 40mg Take 40 mg U nivers ORAL 4-05 by mouth ity of 09:24: daily. [address] losartan 2021-0 Yes 20mg Take 20 mg [facility] vers potassium 4-05 by mouth. ity o f (LOSARTAN 09:24: [place] ORAL) [address] [place] [address] FUROSEMIDE 2021-0 Yes 40mg Take 40 mg U nivers ORAL 4-05 by mouth ity of 09:24: daily. [address] losartan 2021-0 Yes 20mg Take 20 mg [facility] vers potassium 4-05 by mouth. ity o f (LOSARTAN 09:24: [place] ORAL) [address] [place] [address] FUROSEMIDE 0 Yes 40mg Take 40 mg U nivers ORAL 4-05 by mouth ity of 09:24: daily. [address] losartan 2021-0 Yes 20mg Take 20 mg [facility] vers potassium 4-05 by mouth. ity o f (LOSARTAN 09:24: [place] ORAL) [address] [place] [address] FUROSEMIDE 2021-0 Yes 40mg Take 40 mg U nivers ORAL 4-05 by mouth ity of 09:24: daily. [address] losartan 2021-0 Yes 20mg Take 20 mg [facility] vers potassium 4-05 by mouth. ity o f (LOSARTAN 09:24: [place] ORAL) [address] [place] [address] FUROSEMIDE 2021-0 Yes 40mg Take 40 mg U nivers ORAL 4-05 by mouth ity of 09:24: daily. [place] [facility] gabapentin 2022-0 Yes [id number] 300mg Take 1 [facility] 300 mg 4-05 capsule by ity of capsule 00:00: mouth 3 [place] (three) Medical times Branch daily. rizatriptan 2022-0 Yes [id number] 5mg Take 1 [facility] 5 mg 4-05 tablet by ity of disintegrat 00:00: mouth [place] tablet 00 needed for Med ical Migraine Branch (Take 5mg at the beginning of the headache can repeat 2h after if headaches persists). May repeat in 2 hours if needed magnesium 2022-0 Yes [id number] 400mg Take 2 [facility] gluconate 4-05 tablets by ity of 200 mg 00:00: mouth 2 [place] tablet 00 (two) Medical times Branch daily. gabapentin 2022-0 Yes [id number] 300mg Take 1 [facility] 300 mg 4-05 capsule by ity of capsule 00:00: mouth 3 [place] 00 (three) Medical times Branch daily. rizatriptan 2022-0 Yes [id number] 5mg Take 1 [facility] 5 mg 4-05 tablet by ity of disintegrat 00:00: mouth as [place] tablet 00 needed for Med ical Migraine Branch (Take 5mg at the beginning of the headache can repeat 2h after if headaches persists). May repeat in 2 hours if needed magnesium 2022-0 Yes [id number] 400mg Take 2 [facility] gluconate 4-05 tablets by ity of 200 mg 00:00: mouth 2 [place] tablet 00 (two) Medical times Branch daily. gabapentin 2022-0 Yes [id number] 300mg Take 1 [facility] 300 mg 4-05 capsule by ity of capsule 00:00: mouth 3 [place] 00 (three) Medical times Branch daily. rizatriptan 2022-0 Yes [id number] 5mg Take 1 [facility] 5 mg 4-05 tablet by ity of disintegrat 00:00: mouth as [place] tablet 00 needed for Med ical Migraine Branch (Take 5mg at the beginning of the headache can repeat 2h after if headaches persists). May repeat in 2 hours if needed magnesium 2022-0 Yes [id number] 400mg Take 2 [facility] gluconate 4-05 tablets by ity of 200 mg 00:00: mouth 2 [place] tablet 00 (two) Medical times Branch daily. gabapentin 2022-0 Yes [id number] 300mg Take 1 [facility] 300 mg 4-05 capsule by ity of capsule 00:00: mouth 3 [place] 00 (three) Medical times Branch daily. rizatriptan 2022-0 Yes [id number] 5mg Take 1 [facility] 5 mg 4-05 tablet by [facility]y of disintegrat 00:00: mouth as [place] tablet 00 needed for Med ical Migraine Branch (Take 5mg at the beginning of the headache can repeat 2h after if headaches persists). May repeat in 2 hours if needed magnesium 2022-0 Yes [id number] 400mg Take 2 [facility] gluconate 4-05 tablets by ity of 200 mg 00:00: mouth 2 [place] tablet 00 (two) Medical times Branch daily. gabapentin 2022-0 Yes [id number] 300mg Take 1 [facility] 300 mg 4-05 capsule by ity of capsule 00:00: mouth 3 [place] 00 (three) Medical times Branch daily. rizatriptan 2022-0 Yes [id number] 5mg Take 1 [facility] 5 mg 4-05 tablet by ity of disintegrat 00:00: mouth as [place] ing tablet 00 needed for Med ical Migraine Branch (Take 5mg at the beginning of the headache can repeat 2h after if headaches persists). May repeat in 2 hours if needed magnesium 2022-0 Yes [id number] 400mg Take 2 [facility] gluconate 4-05 tablets by ity of 200 mg 00:00: mouth 2 [place] tablet 00 (two) Medical times Branch daily. gabapentin 2022-0 Yes [id number] 300mg Take 1 [facility] 300 mg 4-05 capsule by ity of capsule 00:00: mouth 3 00 (three) Medical times Branch daily. rizatriptan 2022-0 Yes [id number] 5mg Take 1 [facility] 5 mg 4-05 tablet by ity of disintegrat 00:00: mouth as [place] tablet 00 needed for Med ical Migraine Branch (Take 5mg at the beginning of the headache can repeat 2h after if headaches persists). May repeat in 2 hours if needed magnesium 2022-0 Yes [id number] 400mg Take 2 [facility] gluconate 4-05 tablets by ity of 200 mg 00:00: mouth 2 [place] tablet 00 (two) Medical times Branch daily. gabapentin 2022-0 Yes [id number] 300mg Take 1 [facility] 300 mg 4-05 capsule by ity of capsule 00:00: mouth 3 [place] 00 (three) Medical times Branch daily. rizatriptan 2022-0 Yes [id number] 5mg Take 1 [facility] 5 mg 4-05 tablet by ity of disintegrat 00:00: mouth as [place] tablet 00 needed for Med ical Migraine Branch (Take 5mg at the beginning of the headache can repeat 2h after if headaches persists). May repeat in 2 hours if needed magnesium 2022-0 Yes [id number] 400mg Take 2 [facility] gluconate 4-05 tablets by ity of 200 mg 00:00: mouth 2 [place] tablet 00 (two) Medical times Branch daily. gabapentin 2022-0 Yes [id number] 300mg Take 1 [facility] 300 mg 4-05 capsule by ity of capsule 00:00: mouth 3 [place] (three) Medical times Branch daily. rizatriptan 2022-0 Yes [id number] 5mg Take 1 [facility] 5 mg 4-05 tablet by ity of disintegrat 00:00: mouth as [place] tablet 00 needed for Med ical Migraine Branch (Take 5mg at the beginning of the headache can repeat 2h after if headaches persists). May repeat in 2 hours if needed magnesium 2022-0 Yes [id number] 400mg Take 2 [facility] gluconate 4-05 tablets by ity of 200 mg 00:00: mouth 2 [place] tablet 00 (two) Medical times Branch daily. gabapentin 2022-0 Yes [id number] 300mg Take 1 [facility] 300 mg 4-05 capsule by ity of capsule 00:00: mouth 3 [place] 00 (three) Medical times Branch daily. rizatriptan 2022-0 Yes [id number] 5mg Take 1 [facility] 5 mg 4-05 tablet by ity of disintegrat 00:00: mouth as [place] tablet 00 needed for Med ical Migraine Branch (Take 5mg at the beginning of the headache can repeat 2h after if headaches persists). May repeat in 2 hours if needed magnesium 2022-0 Yes [id number] 400mg Take 2 [facility] gluconate 4-05 tablets by ity of 200 mg 00:00: mouth 2 [place] tablet 00 (two) Medical times Branch daily. gabapentin 2022-0 Yes [id number] 300mg Take 1 [facility] 300 mg 4-05 capsule by ity of capsule 00:00: mouth 3 [place] 00 (three) Medical times Branch daily. rizatriptan 2022-0 Yes [id number] 5mg Take 1 [facility] 5 mg 4-05 tablet by ity of disintegrat 00:00: mouth as [place] tablet 00 needed for Med ical Migraine Branch (Take 5mg at the beginning of the headache can repeat 2h after if headaches persists). May repeat in 2 hours if needed magnesium 2022-0 Yes [id number] 400mg Take 2 [facility] gluconate 4-05 tablets by ity of 200 mg 00:00: mouth 2 [place] tablet 00 (two) Medical times Branch daily. gabapentin 2022-0 Yes [id number] 300mg Take 1 [facility] 300 mg 4-05 capsule by ity of capsule 00:00: mouth 3 [place] 00 (three) Medical times Branch daily. rizatriptan 2022-0 Yes [id number] 5mg Take 1 [facility] 5 mg 4-05 tablet by ity of disintegrat 00:00: mouth as [place] tablet 00 needed for Med ical Migraine Branch (Take 5mg at the beginning of the headache can repeat 2h after if headaches persists). May repeat in 2 hours if needed magnesium 2022-0 Yes [id number] 400mg Take 2 [facility] gluconate 4-05 tablets by ity of 200 mg 00:00: mouth 2 [place] tablet 00 (two) Medical times Branch daily. gabapentin 2022-0 Yes [id number] 300mg Take 1 [facility] 300 mg 4-05 capsule by ity of capsule 00:00: mouth 3 [place] 00 (three) Medical times Branch daily. rizatriptan 2022-0 Yes [id number] 5mg Take 1 [facility] 5 mg 4-05 tablet by ity of disintegrat 00:00: mouth as [place] tablet 00 needed for Med ical Migraine Branch (Take 5mg at the beginning of the headache can repeat 2h after if headaches persists). May repeat in 2 hours if needed magnesium 2022-0 Yes [id number] 400mg Take 2 [facility] gluconate 4-05 tablets by ity of 200 mg 00:00: mouth 2 [place] tablet 00 (two) Medical times Branch daily. gabapentin 2022-0 Yes [id number] 300mg Take 1 [facility] 300 mg 4-05 capsule by ity of capsule 00:00: mouth 3 [place] 00 (three) Medical times Branch daily. rizatriptan 2022-0 Yes [id number] 5mg Take 1 [facility] 5 mg 4-05 tablet by ity of disintegrat 00:00: mouth as [place] tablet 00 needed for Med ical Migraine Branch (Take 5mg at the beginning of the headache can repeat 2h after if headaches persists). May repeat in 2 hours if needed magnesium 2022-0 Yes [id number] 400mg Take 2 [facility] gluconate 4-05 tablets by ity of 200 mg 00:00: mouth 2 [place] tablet 00 (two) Medical times Branch daily. gabapentin 2022-0 Yes [id number] 300mg Take 1 [facility] 300 mg 4-05 capsule by ity of capsule 00:00: mouth 3 [place] (three) Medical times Branch daily. rizatriptan 2022-0 Yes [id number] 5mg Take 1 [facility] 5 mg 4-05 tablet by ity of disintegrat 00:00: mouth as [place] ing tablet 00 needed for Med ical Migraine Branch (Take 5mg at the beginning of the headache can repeat 2h after if headaches persists). May repeat in 2 hours if needed magnesium 2022-0 Yes [id number] 400mg Take 2 [facility] gluconate 4-05 tablets by ity of 200 mg 00:00: mouth 2 [place] tablet 00 (two) Medical times Branch daily. gabapentin 2022-0 Yes [id number] 300mg Take 1 [facility] 300 mg 4-05 capsule by ity of capsule 00:00: mouth 3 (three) Medical times Branch daily. rizatriptan 2022-0 Yes [id number] 5mg Take 1 [facility] 5 mg 4-05 tablet by ity of disintegrat 00:00: mouth as [place] ing tablet 00 needed for Med ical Migraine Branch (Take 5mg at the beginning of the headache can repeat 2h after if headaches persists). May repeat in 2 hours if needed magnesium 2022-0 Yes [id number] 400mg Take 2 [facility] gluconate 4-05 tablets by ity of 200 mg 00:00: mouth 2 [place] tablet 00 (two) Medical times Branch daily. gabapentin 2022-0 Yes [id number] 300mg Take 1 [facility] 300 mg 4-05 capsule by ity of capsule 00:00: mouth 3 [place] 00 (three) Medical times Branch daily. rizatriptan 2022-0 Yes [id number] 5mg Take 1 [facility] 5 mg 4-05 tablet by ity of disintegrat 00:00: mouth as [place] ing tablet 00 needed for Med ical Migraine Branch (Take 5mg at the beginning of the headache can repeat 2h after if headaches persists). May repeat in 2 hours if needed magnesium 2022-0 Yes [id number] 400mg Take 2 [facility] gluconate 4-05 tablets by ity of 200 mg 00:00: mouth 2 [place] tablet 00 (two) Medical times Branch daily. gabapentin 2022-0 Yes [id number] 300mg Take 1 [facility] 300 mg 4-05 capsule by ity of capsule 00:00: mouth 3 [place] 00 (three) Medical times Branch daily. rizatriptan 2022-0 Yes [id number] 5mg Take 1 [facility] 5 mg 4-05 tablet by ity of disintegrat 00:00: mouth as [place] ing tablet 00 needed for Med ical Migraine Branch (Take 5mg at the beginning of the headache can repeat 2h after if headaches persists). May repeat in 2 hours if needed magnesium 2022-0 Yes [id number] 400mg Take 2 [facility] gluconate 4-05 tablets by ity of 200 mg 00:00: mouth 2 [place] tablet 00 (two) Medical times Branch daily. gabapentin 2022-0 Yes [id number] 300mg Take 1 [facility] 300 mg 4-05 capsule by ity of capsule 00:00: mouth 3 (three) Medical times Branch daily. rizatriptan 2022-0 Yes [id number] 5mg Take 1 [facility] 5 mg 4-05 tablet by ity of disintegrat 00:00: mouth as [place] ing tablet 00 needed for Med ical Migraine Branch (Take 5mg at the beginning of the headache can repeat 2h after if headaches persists). May repeat in 2 hours if needed magnesium 2022-0 Yes [id number] 400mg Take 2 [facility] gluconate 4-05 tablets by ity of 200 mg 00:00: mouth 2 [place] tablet 00 (two) Medical times Branch daily. gabapentin 2022-0 Yes [id number] 300mg Take 1 [facility] 300 mg 4-05 capsule by ity of capsule 00:00: mouth 3 [place] (three) Medical times Branch daily. rizatriptan 2022-0 Yes [id number] 5mg Take 1 [facility] 5 mg 4-05 tablet by ity of disintegrat 00:00: mouth as [place] ing tablet 00 needed for Med ical Migraine Branch (Take 5mg at the beginning of the headache can repeat 2h after if headaches persists). May repeat in 2 hours if needed magnesium 2022-0 Yes [id number] 400mg Take 2 [facility] gluconate 4-05 tablets by ity of 200 mg 00:00: mouth 2 [place] tablet 00 (two) Medical times Branch daily. gabapentin 2022-0 Yes [id number] 300mg Take 1 [facility] 300 mg 4-05 capsule by ity of capsule 00:00: mouth 3 [place] 00 (three) Medical times Branch daily. rizatriptan 2022-0 Yes [id number] 5mg Take 1 [facility] 5 mg 4-05 tablet by ity of disintegrat 00:00: mouth as [place] ing tablet 00 needed for Med ical Migraine Branch (Take 5mg at the beginning of the headache can repeat 2h after if headaches persists). May repeat in 2 hours if needed magnesium 2022-0 Yes [id number] 400mg Take 2 [facility] gluconate 4-05 tablets by ity of 200 mg 00:00: mouth 2 [place] tablet 00 (two) Medical times Branch daily. gabapentin 2022-0 Yes [id number] 300mg Take 1 [facility] 300 mg 4-05 capsule by ity of capsule 00:00: mouth 3 [place] 00 (three) Medical times Branch daily. rizatriptan 2022-0 Yes [id number] 5mg Take 1 [facility] 5 mg 4-05 tablet by ity of disintegrat 00:00: mouth as [place] ing tablet 00 needed for Med ical Migraine Branch (Take 5mg at the beginning of the headache can repeat 2h after if headaches persists). May repeat in 2 hours if needed magnesium 2022-0 Yes [id number] 400mg Take 2 [facility] gluconate 4-05 tablets by ity of 200 mg 00:00: mouth 2 [place] tablet 00 (two) Medical times Branch daily. ondansetron 2021-0 Yes [id number] 4mg Take 1 [facility] (ZOFRAN 7-22 tablet by ity of ODT) 4 mg 00:00: mouth [place] disintegrat 00 every 8 Medic al ing tablet (eight) Branch hours as needed for Nausea and Vomiting (N/V). ondansetron 2020-0 Yes [id number] 4mg Take 1 [facility] (ZOFRAN 7-22 tablet by ity of ODT) 4 mg 00:00: mouth [place] disintegrat 00 every 8 Medic al ing tablet (eight) Branch hours as needed for Nausea and Vomiting (N/V). ondansetron 2021-0 Yes [id number] 4mg Take 1 [facility] (ZOFRAN 7-22 tablet by ity of ODT) 4 mg 00:00: mouth [place] disintegrat 00 every 8 Medic al ing tablet (eight) Branch hours as needed for Nausea and Vomiting (N/V). ondansetron 2020-0 Yes [id number] 4mg Take 1 [facility] (ZOFRAN 7-22 tablet by ity of ODT) 4 mg 00:00: mouth [place] disintegrat 00 every 8 Medic al ing tablet (eight) Branch hours as needed for Nausea and Vomiting (N/V). ondansetron 2020-0 Yes [id number] 4mg Take 1 [facility] (ZOFRAN 7-22 tablet by ity of ODT) 4 mg 00:00: mouth [place] disintegrat 00 every 8 Medic al ing tablet (eight) Branch hours as needed for Nausea and Vomiting (N/V). ondansetron 2020-0 Yes [id number] 4mg Take 1 [facility] (ZOFRAN 7-22 tablet by ity of ODT) 4 mg 00:00: mouth [place] disintegrat 00 every 8 Medic al ing tablet (eight) Branch hours as needed for Nausea and Vomiting (N/V). ondansetron 2020-0 Yes [id number] 4mg Take 1 [facility] (ZOFRAN 7-22 tablet by ity of ODT) 4 mg 00:00: mouth [place] disintegrat 00 every 8 Medic al ing tablet (eight) Branch hours as needed for Nausea and Vomiting (N/V). ondansetron 2020-0 Yes [id number] 4mg Take 1 [facility] (ZOFRAN 7-22 tablet by ity of ODT) 4 mg 00:00: mouth [place] disintegrat 00 every 8 Medic al ing tablet (eight) Branch hours as needed for Nausea and Vomiting (N/V). ondansetron 2021-0 Yes [id number] 4mg Take 1 [facility] (ZOFRAN 7-22 tablet by ity of ODT) 4 mg 00:00: mouth [place] disintegrat 00 every 8 Medic al ing tablet (eight) Branch hours as needed for Nausea and Vomiting (N/V). ondansetron 2020-0 Yes [id number] 4mg Take 1 [facility] (ZOFRAN 7-22 tablet by ity of ODT) 4 mg 00:00: mouth [place] disintegrat 00 every 8 Medic al ing tablet (eight) Branch hours as needed for Nausea and Vomiting (N/V). ondansetron 2021-0 Yes [id number] 4mg Take 1 [facility] (ZOFRAN 7-22 tablet by ity of ODT) 4 mg 00:00: mouth [place] disintegrat 00 every 8 Medic al ing tablet (eight) Branch hours as needed for Nausea and Vomiting (N/V). ondansetron 2021-0 Yes [id number] 4mg Take 1 [facility] (ZOFRAN 7-22 tablet by ity of ODT) 4 mg 00:00: mouth [place] disintegrat 00 every 8 Medic al ing tablet (eight) Branch hours as needed for Nausea and Vomiting (N/V). ondansetron 1-0 Yes [id number] 4mg Take 1 [facility] (ZOFRAN 7-22 tablet by ity of ODT) 4 mg 00:00: mouth [place] disintegrat 00 every 8 Medic al ing tablet (eight) Branch hours as needed for Nausea and Vomiting (N/V). ondansetron 2020-0 Yes [id number] 4mg Take 1 [facility] (ZOFRAN 7-22 tablet by ity of ODT) 4 mg 00:00: mouth [place] disintegrat 00 every 8 Medic al ing tablet (eight) Branch hours as needed for Nausea and Vomiting (N/V). ondansetron 2021-0 Yes [id number] 4mg Take 1 [facility] (ZOFRAN 7-22 tablet by ity of ODT) 4 mg 00:00: mouth [place] disintegrat 00 every 8 Medic al ing tablet (eight) Branch hours as needed for Nausea and Vomiting (N/V). ondansetron 1-0 Yes [id number] 4mg Take 1 [facility] (ZOFRAN 7-22 tablet by ity of ODT) 4 mg 00:00: mouth [place] disintegrat 00 every 8 Medic al ing tablet (eight) Branch hours as needed for Nausea and Vomiting (N/V). ondansetron 2021-0 Yes [id number] 4mg Take 1 [facility] (ZOFRAN 7-22 tablet by ity of ODT) 4 mg 00:00: mouth [place] disintegrat 00 every 8 Medic al ing tablet (eight) Branch hours as needed for Nausea and Vomiting (N/V). ondansetron 2021-0 Yes [id number] 4mg Take 1 [facility] (ZOFRAN 7-22 tablet by ity of ODT) 4 mg 00:00: mouth [place] disintegrat 00 every 8 Medic al ing tablet (eight) Branch hours as needed for Nausea and Vomiting (N/V). ondansetron 2021-0 Yes [id number] 4mg Take 1 [facility] (ZOFRAN 7-22 tablet by ity of ODT) 4 mg 00:00: mouth [place] disintegrat 00 every 8 Medic al ing tablet (eight) Branch hours as needed for Nausea and Vomiting (N/V). ondansetron 2021-0 Yes [id number] 4mg Take 1 [facility] (ZOFRAN 7-22 tablet by ity of ODT) 4 mg 00:00: mouth [place] disintegrat 00 every 8 Medic al ing tablet (eight) Branch hours as needed for Nausea and Vomiting (N/V). ondansetron 1-0 Yes [id number] 4mg Take 1 [facility] (ZOFRAN 7-22 tablet [...] by mouth ity of tablet 13:17: at [place] 52 bedtime. Medical Branch allopurinoL 2020-0 Yes 100mg Take 100 U nivers 100 mg 6-24 mg by ity of tablet 13:17: mouth [place] 52 daily. Medical Branch atorvastati 2020-0 Yes 10mg Take 10 mg [facility] n 10 mg 6-24 by mouth ity of tablet 13:17: at [place] [address] bedtime. Medical Branch allopurinoL 2020-0 Yes 100mg Take 100 U nivers 100 mg 6-24 mg by ity of tablet 13:17: mouth [place] 52 daily. Medical Branch atorvastati 2020-0 Yes 10mg Take 10 mg [facility] n 10 mg 6-24 by mouth ity of tablet 13:17: at [place] [address] bedtime. Medical Branch allopurinoL 2020-0 Yes 100mg Take 100 U nivers 100 mg 6-24 mg by ity of tablet 13:17: mouth [place] 52 daily. Medical Branch atorvastati 2020-0 Yes 10mg Take 10 mg [facility] n 10 mg 6-24 by mouth ity of tablet 13:17: at [place] [address] bedtime. Medical Branch allopurinoL 2020-0 Yes 100mg Take 100 U nivers 100 mg 6-24 mg by ity of tablet 13:17: mouth [place] 52 daily. Medical Branch atorvastati 2020-0 Yes 10mg Take 10 mg [facility] n 10 mg 6-24 by mouth ity of tablet 13:17: at [place] [address] bedtime. Medical Branch allopurinoL 2020-0 Yes 100mg Take 100 U nivers 100 mg 6-24 mg by ity of tablet 13:17: mouth [place] 52 daily. Medical Branch atorvastati 2020-0 Yes 10mg Take 10 mg [facility] n 10 mg 6-24 by mouth ity of tablet 13:17: at [place] [address] bedtime. Medical Branch allopurinoL 2020-0 Yes 100mg [...] by mouth ity of tablet 13:17: at [place] [address] bedtime. Medical Branch allopurinoL 2020-0 Yes 100mg [...] by mouth ity of tablet 13:17: at [place] [address] bedtime. Medical Branch allopurinoL 2020-0 Yes 100mg [...] by mouth ity of tablet 13:17: at [place] [address] bedtime. Medical Branch allopurinoL 2020-0 Yes 100mg Take 100 U nivers 100 mg 6-24 mg by ity of tablet 13:17: mouth [place] 52 daily. Medical Branch atorvastati 2020-0 Yes 10mg Take 10 mg [facility] n 10 mg 6-24 by mouth ity of tablet 13:17: at [place] [address] bedtime. Medical Branch allopurinoL 2020-0 Yes 100mg Take 100 U nivers 100 mg 6-24 mg by ity of tablet 13:17: mouth [place] 52 daily. Medical Branch atorvastati 2020-0 Yes 10mg Take 10 mg [facility] n 10 mg 6-24 by mouth ity of tablet 13:17: at [place] [address] bedtime. Medical Branch allopurinoL 2020-0 Yes 100mg Take 100 U nivers 100 mg 6-24 mg by ity of tablet 13:17: mouth [place] 52 daily. Medical Branch atorvastati 2020-0 Yes 10mg Take 10 mg Univers n 10 mg 6-24 by mouth ity of tablet 13:17: at [place] [address] bedtime. Medical Branch allopurinoL 2020-0 Yes 100mg Take 100 U nivers 100 mg 6-24 mg by ity of tablet 13:17: mouth [place] 52 daily. Medical Branch atorvastati 2020-0 Yes 10mg Take 10 mg Univers n 10 mg 6-24 by mouth ity of tablet 13:17: at [place] 52 bedtime. Medical Branch propranolol 2020-0 Yes [...] mouth 2 ity of tablet 13:12: (two) [place] 38 times Medical daily. Branch propranolol 2020-0 [...] mouth 2 ity of tablet 13:12: (two) [place] 38 times Medical daily. Branch propranolol 2020-0 Yes 80mg Take 80 mg [facility] 80 mg 6-24 by mouth 2 ity of tablet 13:12: (two) [place] 38 times Medical daily. Branch propranolol 2020-0 Yes 80mg Take 80 mg [facility] 80 mg 6-24 by mouth 2 ity of tablet 13:12: (two) [place] 38 times Medical daily. Branch Vital Signs Vital Name Observation Time Observation Value Comments Source Systolic blood 2022-02-15 14:59:00 131 mm[Hg] [facility] Diastolic blood 2022-02-15 14:59:00 70 mm[Hg] [facility] Heart rate 2022-02-15 14:59:00 81 /min [facility] Respiratory rate 2022-02-15 14:59:00 18 /min [facility] Body height 2022-02-15 14:59:00 167.6 cm [facility] [place] [facility] [place] Body weight 2022-02-15 14:59:00 102.967 kg [facility] [place] [facility] BMI 2022-02-15 14:59:00 36.64 kg/m2 [facility] [place] [facility] Respiratory rate 2022-01-11 17:11:00 18 /min Univ ersity of [facility] Body height 2022-01-11 17:11:00 167.6 cm [facility] [place] [facility] [place] Body weight 2022-01-11 17:11:00 100.699 kg [facility] [place] [facility] BMI 2022-01-11 17:11:00 35.83 kg/m2 [facility] Systolic blood 2021-08-24 14:24:00 133 mm[Hg] Univer [facility] Diastolic blood 2021-08-24 14:24:00 73 mm[Hg] Unive rsity [facility] Heart rate 2021-08-24 14:24:00 69 /min [facility] Respiratory rate 2021-08-24 14:24:00 18 /min Univ ersity of [facility] Body height 2021-08-24 14:24:00 167.6 cm [facility] Body weight 2021-08-24 14:24:00 100.245 kg [facility] BMI 2021-08-24 14:24:00 35.67 kg/m2 [facility] Oxygen saturation in 2021-06-07 15:30:00 96 /min University Arterial blood by [facility] [place] Pulse oximetry [place] Body temperature 2021-06-07 14:20:30 37.44 [facility] Procedure Date / Time Performed Performing Clinician Sourc e EXTERNAL PROVIDER 2022-02-21 06:01:00 Doctor Unassigned, No Univ ersity [facility] RECORDS Name Medical Branch EXTERNAL PROVIDER 2022-02-21 06:01:00 Doctor Unassigned, No Univ ersity [facility] RECORDS Name Medical Branch LITHIUM 2022-02-15 15:58:00 Angela Sage [facility] CONSENT/REFUSAL FOR 2022-01-11 17:10:16 Doctor Unassigned, No Un [facility] [place] DIAGNOSIS AND Name [facility] TREATMENT CONSENT/REFUSAL FOR 2022-01-11 17:10:16 Doctor Unassigned, No Un [facility] [place] DIAGNOSIS AND Name [facility] TREATMENT Encounters Start End Encounter Admission Attending Care Care Encounter Source Date/Time Date/Time Type Type Clinicians Facility Department ID 2020-12-[address] [facility] [id number] Univers 10:09:54 ity of [facility] 2020-12-[address] [facility] [id number] Univers 04:02:45 ity of [facility] 2022-02-21 2022-02-21 Orders Doctor 1.2.840.2 [id number] Univers 00:00:00 00:00:00 Only Unassigned, 66113.1.1 ity of [place] 3.104.2.7 [place] .3.076700 Medica l .8 [place] 2022-02-15 2022-02-15 Shorts Sifter Pathology 1.2.840.1 [id number] Univers 13:30:00 13:45:00 Visit Pcp-Lab 81560.1.1 ity of 3.104.2.7 [place] .3.407027 Medica l .8 [place] 2022-02-15 2022-02-15 Outpatient R SELF, [facility] [id number] Univers 08:45:00 10:52:26 DERRELL lupillo martinez [facility] 2022-02-15 2022-02-15 Travel 1.2.840.1 1.2.344.310 [id number] [id number] Univers 00:00:00 00:00:00 78708.1.1 350.1.13.10 ity of 3.104.2.7 [place].3.698 [place] .3.673762 084.8 Medica l .8 [place] 2022-01-11 2022-01-11 Outpatient [address]JIND[address]NA [facility] [id number] Univers 11:00:00 12:39:46 UNA HESTER dl [facility] 2022-01-11 2022-01-11 Orders Doctor 1.2.840.0 [id number] Univers 00:00:00 00:00:00 Only Unassigned, 67439.1.1 ity of [place] 3.104.2.7 [place] .3.286826 Medica l .8 [place] 2022-01-11 2022-01-11 Travel 1.2.840.1 1.2.321.892 [id number] Univers 00:00:00 00:00:00 14269.1.1 350.1.13.10 ity of 3.104.2.7 4.[place].7.3.698 [place] .3.755007 084.8 Medica l .8 [place] 2021-11-24 2021-11-[address] [facility] [id number] Univers 09:30:00 09:30:00 IGOR walters [facility] 2021-11-16 2021-11-16 [address] [facility] [id number] Univers 11:00:00 11:00:00 AKCIESUKHJINDERUNA dl [facility] 2021-10-26 2021-10-26 Outpatient R SELF, [facility] [id number] Univers 08:00:00 08:00:00 DERRELL martinez [facility] 2021-10-20 2021-10-20 Outpatient R QUENTIN, [facility] [id number] Univers 10:00:00 10:00:00 IGOR martinez [facility] 2021-10-03 2021-10-03 Outpatient R JENNIFER, [facility] [id number] Univers 14:30:00 14:30:00 REX wesley [facility] 2021-09-21 2021-09-21 Outpatient R SELF, [facility] [id number] Univers 09:30:00 09:30:00 DERRELL martinez [facility] 2021-08-24 2021-08-24 Outpatient R SELF, [facility] [id number] Univers 09:30:00 10:41:34 DERRELL martinez [facility] 2021-08-24 2021-08-24 Travel 1.2.840.1 1.2.058.675 [id number] Univers 00:00:00 00:00:00 89756.1.1 350.1.13.10 ity of 3.104.2.7 [place].3.698 [place] .3.119148 084.8 Medica l .8 [place] 2021-07-25 2021-07-25 Outpatient R LARISSA, [facility] [id number] Univers 09:00:00 09:00:00 DERRELL martinez [facility] 2021-06-22 2021-06-[address] [facility] [id number] Univers 11:15:00 12:18:05 UNA HESTER [facility] 2021-06-22 2021-06-[address] [facility] [id number] Univers 11:15:00 11:15:00 UNA HESTER [facility] 2021-06-22 2021-06-22 Travel 1.2.840.1 1.2.988.092 [id number] Univers 00:00:00 00:00:00 93547.1.1 350.1.13.10 ity of 3.104.2.7 [place].7.3.698 [place] .3.532942 084.8 Medica l .8 [place] 2021-06-20 2021-06-20 Outpatient R SELF, [facility] [id number] Univers 11:15:00 11:15:00 DERRELL wesley o f [facility] 2021-06-20 2021-06-20 Outpatient R SELF, [facility] [id number] Univers 11:15:00 11:15:00 DERRELL wesley o f [facility] 2021-06-08 2021-06-08 Outpatient R ROBEL MOORELANoa [facility] [id number] Univers 09:20:00 09:20:00 [facility] 2021-06-08 2021-06-08 Patient Saavedra, 1.2.840.4 [id number] Univers 00:00:00 00:00:00 Secure Msg Zhu 62479.1.1 ity of [place] 3.104.2.7 [place] .3.668896 Medica l .[address] [place] [address] 2021-06-07 2021-06-07 Emergency X [place], [facility] ERT [id number] Univers 09:13:00 10:50:00 LULY wesley [facility] 2021-06-07 2021-06-07 Emergency Ny, [facility] 1.2.520.807 [id number] Univers 09:13:00 10:50:00 Luly GILL[place]PIE 350.1.13.10 i ty [facility] 4.2.7.2.686 [facility] [phone] [facility] 084 [place] 2021-06-07 2021-06-07 Emergency Ny, 1.2.840.8 [id number] Univers 09:13:00 10:50:00 Luly 49765.1.1 ity of 3.104.2.7 [place] .3.089690 Medica l .8 [place] 2021-06-07 2021-06-07 Outpatient R SAAVEDRA, [facility] [id number] Univers 00:00:00 00:00:00 IGOR wesley o [facility] 2021-06-07 2021-06-07 Orders Doctor MOO 1.2.840.114 [id number] Univers 00:00:00 00:00:00 Only Unassigned, QUITA 350.1.13.10 ity of [place] [facility] 4.2.7.2.686 Iam as [phone] [facility] 009 [place] 2021-06-07 2021-06-07 Travel 1.2.840.1 1.2.081.463 [id number] Univers 00:00:00 00:00:00 30299.1.1 350.1.13.10 ity of 3.104.2.7 4.[place].7.3.698 [place] .3.581621 084.8 Medica l .8 [place] 2021-06-07 2021-06-07 Orders Doctor 1.2.840.2 [id number] Univers 00:00:00 00:00:00 Only Unassigned, 57674.1.1 ity of [place] 3.104.2.7 [place] .3.894236 Medica l .8 [place] 2021-06-03 2021-06-03 Travel 1.2.840.1 1.2.938.252 [id number] [id number] Univers 00:00:00 00:00:00 88336.1.1 350.1.13.10 ity of 3.104.2.7 4.[place].7.3.698 [place] .3.688643 084.8 Medica l .8 [place] 2021-05-27 2021-05-27 Outpatient R SAAVEDRA, [facility] [id number] Univers 00:00:00 00:00:00 IGOR wesley o f [facility] 2021-05-27 2021-05-27 Outpatient R SAAVEDRA, [facility] [id number] Univers 00:00:00 00:00:00 IGOR wesley o f [facility] 2021-05-25 2021-05-25 Patient Doctor 1.2.840.3 [id number] Univers 00:00:00 00:00:00 Secure Msg Unassigned, 80132.1.1 ity of [place] 3.104.2.7 [place] .3.635006 Medica l .8 Branch 2021-05-25 2021-05-25 Patient Doctor 1.2.840.6 [id number] Univers 00:00:00 00:00:00 Secure Msg Unassigned, 59209.1.1 ity of [place] 3.104.2.7 [place] .3.750531 Medica l .8 Branch 2021-05-20 2021-05-20 Telephone Jones 1.2.840.8 [id number] Univers 00:00:00 00:00:00 Best, 25142.1.1 ity of [place] 3.104.2.7 [place] .3.045087 Medica l .8 Branch 2021-05-20 2021-05-20 Telephone Jones 1.2.840.7 [id number] Univers 00:00:00 00:00:00 Best, 16392.1.1 ity of [place] 3.104.2.7 [place] .3.351018 Medica l .8 Branch 2021-05-18 2021-05-18 Travel 1.2.840.1 1.2.683.526 [id number] Univers 00:00:00 00:00:00 10006.1.1 350.1.13.10 ity of 3.104.2.7 4.2.7.3.698 [place] .3.050918 084.8 Medica l .8 Branch 2021-05-18 2021-05-18 Travel 1.2.840.1 1.2.877.998 [id number] Univers 00:00:00 00:00:00 31918.1.1 350.1.13.10 ity of 3.104.2.7 4.2.7.3.698 [place] .3.807065 084.8 Medica l .8 [place] 2021-05-17 2021-05-17 Shorts Sifter Pcp-Lab [facility] 1.2.840.114 [id number] Univers 13:15:00 13:30:00 Visit Igor Saavedra PRIMARY 350.1.13.1 0 ity of CARE 4.2.7.2.686 Sujey BROWNLEE [id number] La dical 366 [place] 2021-05-17 2021-05-17 Shorts Sifter Igor Saavedra 1.2.840.1 1 [id number] Univers 13:15:00 13:30:00 Visit Pcp-Lab 27757.1.1 ity of 3.104.2.7 [place] .3.586227 Medica l .8 [place] 2021-05-17 2021-05-17 Shorts Sifter Igor Saavedra 1.2.840.1 1 [id number] Univers 13:15:00 13:30:00 Visit Pcp-Lab 25512.1.1 ity of 3.104.2.7 [place] .3.360593 Medica l .8 [place] 2021-05-17 2021-05-17 Outpatient R [facility] [id number] Univers 09:00:00 10:25:05 IGOR wesley o [facility] 2021-05-17 2021-05-17 Office Igor Saavedra 1.2.840.1 [id number] Univers 09:00:00 10:25:05 Visit Deonte Joel 45419.1.1 ity of 3.104.2.7 [place] .3.765215 Medica l .8 [place] 2021-05-17 2021-05-17 Outpatient R [facility] [id number] Univers 09:00:00 10:25:05 IGOR wesley o [facility] 2021-05-17 2021-05-17 [facility] [id number] Univers 09:30:00 09:30:00 IGOR wesley o [facility] 2021-05-17 2021-05-17 Travel 1.2.840.1 1.2.846.220 [id number] Univers 00:00:00 00:00:00 80721.1.1 350.1.13.10 ity of 3.104.2.7 4.[place].7.3.698 [place] .3.113563 084.8 Medica l .8 [place] 2021-05-17 2021-05-17 Travel 1.2.840.1 1.2.159.293 [id number] [id number] Univers 00:00:00 00:00:00 33734.1.1 350.1.13.10 ity of 3.104.2.7 4.2.7.3.698 [place] .3.108213 084.8 Medica l .8 [place] 2021-04-26 2021-04-[address] [facility] [id number] Univers 09:00:00 09:00:00 ity [facility] 2021-04-26 2021-04-[address] [facility] [id number] Univers 09:00:00 09:00:00 ATTENDING ity [facility] 2021-04-20 2021-04-20 [address] HE[address] [facility] [id number] Univers 08:45:00 08:45:00 UNA HESTER [facility] 2021-04-11 2021-04-[address] [facility] [id number] Univers 08:40:00 08:40:00 SALLY MITCHELL [facility] 2021-04-11 2021-04-[address] [facility] [id number] Univers 08:40:00 08:40:00 SALLY MITCHELL [facility] 2021-03-21 2021-03-[address] [facility] [id number] Univers 08:00:00 08:00:00 SALLY MITCHELL [facility] 2021-03-17 2021-03-17 Patient Doctor 1.2.840.3 [id number] Univers 00:00:00 00:00:00 Secure Msg Unassigned, 03895.1.1 ity of [place] 3.104.2.7 [place] .3.863151 Medica l .8 [place] 2021-03-17 2021-03-17 Patient Doctor 1.2.840.7 [id number] Univers 00:00:00 00:00:00 Secure Msg Unassigned, 36533.1.1 ity of [place] 3.104.2.7 [place] .3.830009 Medica l .8 [place] 2021-03-17 2021-03-17 Patient Doctor 1.2.840.5 [id number] Univers 00:00:00 00:00:00 Secure Msg Unassigned, 37326.1.1 ity of [place] 3.104.2.7 [place] .3.305212 Medica l .8 [place] 2021-03-16 2021-03-16 Shorts Sifter [place] 1.2.840.1 [id number] Univers 13:15:00 13:30:00 Visit Pcp-Lab 13316.1.1 ity of 3.104.2.7 [place] .3.482188 Medica l .8 [place] 2021-03-16 2021-03-16 Shorts Sifter [place] 1.2.840.1 1020 [id number] Univers 13:15:00 13:30:00 Visit Pcp-Lab 41081.1.1 ity of 3.104.2.7 [place] .3.216403 Medica l .[address] [place] [address] 2021-03-16 2021-03-[address] [facility] [id number] Univers 13:15:00 13:15:00 RALEIGH wesley [facility] 2021-03-16 2021-03-[address] [facility] [id number] Univers 12:00:00 12:09:51 UNA HESTER [facility] 2021-03-16 2021-03-16 Outpatient [address]INDER [facility]GAD[address]ERLY [facility] [id number] Univers 12:00:00 12:09:51 UNA HESTER dl [facility] 2021-03-16 2021-03-16 Outpatient [address] [facility] [facility] [id number] Univers 12:00:00 12:00:00 UNA HESTER [facility] 2021-03-16 2021-03-16 Travel 1.2.840.1 1.2.784.470 [id number] Univers 00:00:00 00:00:00 84738.1.1 350.1.13.10 ity of 3.104.2.7 4.[place].7.3.698 [place] .3.968546 084.8 Medica l .8 [place] 2021-03-16 2021-03-16 Travel 1.2.840.1 1.2.967.423 [id number] Univers 00:00:00 00:00:00 12326.1.1 350.1.13.10 ity of 3.104.2.7 4.2.7.3.698 [place] .3.786631 084.8 Medica l .8 [place] 2021-03-11 2021-03-11 [id number] Univers 09:44:00 13:06:00 HALIMA ity of [facility] 2021-03-11 2021-03-11 Emergency Geeta, 1.2.840.2 [id number] Univers 09:44:00 13:06:00 Halima Cates 46193.1.1 ity of 3.104.2.7 [place] .3.444771 Medica l .8 [place] 2021-03-11 2021-03-11 [facility] [id number] Univers 09:44:00 13:06:00 HALIMA ity [facility] 2021-03-11 2021-03-11 Emergency Geeta, 1.2.840.0 [id number] Univers 09:44:00 13:06:00 Halima Cates 41479.1.1 ity of 3.104.2.7 [place] .3.882902 Medica l .8 [place] 2021-03-11 2021-03-11 [facility] [id number] Univers 09:44:00 13:06:00 HALIMA ity [facility] 2021-03-11 2021-03-11 [facility] [id number] Univers 09:44:00 09:44:00 HALIMA ity [facility] 2021-03-11 2021-03-11 Travel 1.2.840.1 1.2.469.318 [id number] Univers 00:00:00 00:00:00 31484.1.1 350.1.13.10 ity of 3.104.2.7 4.2.7.3.698 [place] .3.204432 084.8 Medica l .8 [place] 2021-03-11 2021-03-11 Travel 1.2.840.1 1.2.038.874 [id number] [id number] Univers 00:00:00 00:00:00 91412.1.1 350.1.13.10 ity of 3.104.2.7 4.2.7.3.698 [place] .3.386288 084.8 Medica l .8 [place] 2021-03-08 2021-03-08 Shorts Sifter [place] 1.2.840.1 1020 [id number] Univers 15:00:00 15:15:00 Visit Pcp-Lab 17784.1.1 ity of 3.104.2.7 [place] .3.167361 Medica l .8 [place] 2021-03-08 2021-03-08 Shorts Sifter [place] 1.2.840.1 [id number] Univers 15:00:00 15:15:00 Visit Pcp-Lab 05570.1.1 ity of 3.104.2.7 [place] .3.922911 Medica l .8 [place] 2021-03-08 2021-03-08 [address] R F[address]IÁN [facility] [id number] Univers 15:00:00 15:00:00 RALEIGH wesley of [facility] 2021-01-31 2021-01-31 Outpatient R SELF, [facility] [id number] Univers 10:15:00 10:55:06 DERRELL martinez [facility] 2020-12-29 2020-12-29 Outpatient R SELF, [facility] [id number] Univers 08:00:00 08:41:00 DERRELL martinez [facility] 2020-12-29 2020-12-29 Outpatient R SELF, [facility] [id number] Univers 08:00:00 08:41:00 DERRELL martinez [facility] 2020-12-29 2020-12-29 Travel 1.2.840.1 1.2.995.643 [id number] Univers 00:00:00 00:00:00 44468.1.1 350.1.13.10 ity of 3.104.2.7 4.[place].7.3.698 [place] .3.605861 084.8 Medica l .8 [place] 2020-12-29 2020-12-29 Travel 1.2.840.1 1.2.966.025 [id number] Univers 00:00:00 00:00:00 63469.1.1 350.1.13.10 ity of 3.104.2.7 4.2.7.3.698 [place] .3.563152 084.8 Medica l .8 [place] 2020-12-22 2020-12-22 Outpatient R SELF, [facility] [id number] Univers 09:30:00 09:30:00 DERRELL martinez [facility] 2020-12-22 2020-12-22 Outpatient R SELF, [facility] [id number] Univers 09:30:00 09:30:00 DERRELL martinez [facility] 2020-11-10 2020-11-10 Outpatient R SHE, [facility] [id number] Univers 09:30:00 09:30:00 LA bricey of [facility] 2020-11-10 2020-11-10 Orders Doctor 1.2.840.3 [id number] Univers 00:00:00 00:00:00 Only Unassigned, 46303.1.1 ity of [place] 3.104.2.7 [place] .3.159626 Medica l .8 [place] 2020-11-10 2020-11-10 Travel 1.2.840.1 1.2.061.240 [id number] Univers 00:00:00 00:00:00 17097.1.1 350.1.13.10 ity of 3.104.2.7 4.2.7.3.698 [place] .3.921814 084.8 Medica l .8 [place] 2020-10-11 2020-10-11 Outpatient R SELF, [facility] [id number] Univers 08:00:00 08:00:00 DERRELL martinez [facility] 2020-10-11 2020-10-11 Travel 1.2.840.1 1.2.120.455 [id number] Univers 00:00:00 00:00:00 40953.1.1 350.1.13.10 ity of 3.104.2.7 4.[place].7.3.698 [place] .3.043603 084.8 Medica l .8 [place] 2020-09-13 2020-09-13 Outpatient R SELF, [facility] [id number] Univers 08:00:00 08:00:00 DERRELL martinez [facility] 2020-09-13 2020-09-13 Travel 1.2.840.1 1.2.235.699 [id number] Univers 00:00:00 00:00:00 89704.1.1 350.1.13.10 ity of 3.104.2.7 4.2.7.3.698 [place] .3.553508 084.8 Medica l .8 [place] 2020-09-02 2020-09-02 Emergency Rose, 1.2.840.6 [id number] [facility] 16:12:00 20:21:00 Patti 64375.1.1 ity of 3.104.2.7 [place] .3.794061 Medica l .8 [place] 2020-09-02 2020-09-02 Emergency Rose, [facility] 1.2.840.114 [id number] 16:12:00 20:21:00 Patti Gillespie 350.1.13.10 Katherine 4.2.7.2.686 [place] [id number] 084 2020-09-02 2020-09-02 Travel 1.2.840.1 1.2.995.443 [id number] Univers 00:00:00 00:00:00 74312.1.1 350.1.13.10 ity of 3.104.2.7 4.2.7.3.698 [place] .3.135756 084.8 Medica l .8 [place] 2020-09-02 2020-09-02 Orders Doctor 1.2.840.9 [id number] Univers 00:00:00 00:00:00 Only Unassigned, 44373.1.1 ity of [place] 3.104.2.7 [place] .3.525918 Medica l .8 [place] 2020-09-02 2020-09-02 Orders Doctor MOO 1.2.840.114 [id number] 00:00:00 00:00:00 Only Unassigned, QUITA 350.1.13.10 [place] [facility] 4.2.7.2.686 [id number] 2020-08-25 2020-08-[address] [facility] [id number] Univers 09:15:00 09:15:00 [facility] 2020-08-09 2020-08-09 Outpatient R SELF, [facility] [id number] Univers 08:45:00 08:45:00 DERRELL walters [facility] 2020-06-28 2020-06-28 Outpatient R FABIÁN [facility] [id number] Univers 13:45:00 13:45:00 [facility] 2020-06-21 2020-06-21 Outpatient R SELF, [facility] [id number] Univers 15:15:00 15:15:00 DERRELL martinez [facility] 2020-06-07 2020-06-07 Outpatient R SELF, [facility] [id number] Univers 08:45:00 08:45:00 DERRELL martinez [facility] 2020-05-25 2020-05-[address] [facility] [id number] Univers 08:30:00 08:30:00 CRISTO [facility] 2020-03-15 2020-03-15 Outpatient R FABIÁN [facility] [id number] Univers 13:00:00 13:00:00 RALEIGH [facility] 2020-03-08 2020-03-08 Outpatient R SELF, [facility] [id number] Univers 13:00:00 13:00:00 DERRELL martinez [facility] 2020-02-16 2020-02-16 Outpatient R SELF, [facility] [id number] Univers 11:00:00 11:00:00 DERRELL martinez [facility] 2020-01-27 2020-01-27 Outpatient R SELF, [facility] [id number] Univers 11:45:00 11:45:00 DERRELL wesley o juan [facility] 2020-01-19 2020-01-19 Outpatient R SELF, [facility] [id number] Univers 08:00:00 08:00:00 DERRELL martinez [facility] 2019-12-22 2019-12-22 Outpatient R SELF, [facility] [id number] Univers 08:45:00 08:45:00 DERRELL martinez [facility] 2019-12-05 2019-12-05 Outpatient R ALEISHA, [facility] [id number] Univers 10:45:00 10:45:00 PRISCA [facility] 2019-10-23 2019-10-23 Outpatient R SANDY, [facility] [id number] Univers 09:15:00 09:15:00 KATH [facility] 2019-10-15 2019-10-15 Outpatient R SHE, [facility] [id number] Univers 11:30:00 11:30:00 LA [facility] 2019-10-01 2019-10-01 Outpatient R SHE, [facility] [id number] Univers 14:30:00 14:30:00 LA dl [facility] 2019-09-01 2019-09-01 Outpatient R SELF, [facility] [id number] Univers 08:45:00 08:45:00 DERRELL martinez [facility] 2019-08-06 2019-08-06 Outpatient R SHALOM, [facility] [id number] Univers 13:00:00 13:00:00 ANGELA [facility] Results Test Description Test Time Test Comments Results Result Comments Source L[facility] 2022-02-15 20:05:22 Test Item Value Reference Range Interpretation Comme nts [place] (test code = 5101248539) 1.1 mmol/L 0.6-1.2 ZAIN[facility] (test code = ZAINAB) Toxic Range: ? Greater than 1.2 mmol/L Lab Interpretation (test code = 07157-3) Normal [facility]2023-01-04 20:05:22 Test Item Value Reference Range Interpretation Comments [place] (test code = 1.1 mmol/L 0.6-1.2 [id number]) ZAINAB (test code = ZAINAB) Toxic Range: ? Greater than 1.2 mmol/L Lab Interpretation (test Normal code = 52574-8) [facility]2023-01-04 20:05:22 Test Item Value Reference Range Interpretation Comments [place] (test code = 1.1 mmol/L 0.6-1.2 [id number]) ZAINAB (test code = ZAINAB) Toxic Range: ? Greater than 1.2 mmol/L Lab Interpretation (test Normal code = 21060-4) [facility]2023-01-04 20:05:22 Test Item Value Reference Range Interpretation Comments [place] (test code = 1.1 mmol/L 0.6-1.2 [id number]) ZAINAB (test code = ZAINAB) Toxic Range: ? Greater than 1.2 mmol/L Lab Interpretation (test Normal code = 69650-7) [facility]2023-01-04 20:05:22 Test Item Value Reference Range Interpretation Comments [place] (test code = 1.1 mmol/L 0.6-1.2 [id number]) ZAINAB (test code = ZAINAB) Toxic Range: ? Greater than 1.2 mmol/L Lab Interpretation (test Normal code = 92797-6) [facility]2023-01-04 20:05:22 Test Item Value Reference Range Interpretation Comments [place] (test code = 1.1 mmol/L 0.6-1.2 [id number]) ZAINAB (test code = ZAINAB) Toxic Range: ? Greater than 1.2 mmol/L Lab Interpretation (test Normal code = 41611-6) [facility]2023-01-04 20:05:22 Test Item Value Reference Range Interpretation Comments [place] (test code = 1.1 mmol/L 0.6-1.2 [id number]) ZAINAB (test code = ZAINAB) Toxic Range: ? Greater than 1.2 mmol/L Lab Interpretation (test Normal code = 97313-5) [facility] Test Item Value Reference Range Interpretation Comments [place] (test code = 1.1 mmol/L 0.6-1.2 [id number]) ZAINAB (test code = ZAINAB) Toxic Range: ? Greater than 1.2 mmol/L Lab Interpretation (test Normal code = 08309-6) [facility]2018-07-20 07:27:00 Test Item Value Reference Range Interpretation Comments TRIGLYCERIDES (test 143 MG/DL TRIGLYCE RIDES code = TRIG) REFERENCE RANGE:Normal: < 150 mg/dLBorderline High: 150-199 mg/dLHi gh: 200-499 mg/dLVe ry High: >=500 mg/ dL CHOLESTEROL (test code 190 MG/DL <200 = CHOL) HDL CHOLESTEROL (test 41 MG/DL 40-59 N code = HDL) LIPOPROTEIN LDL (test 144 MG/DL 0-99 H OPTIM AL.........<100 code = LDL) mg/dLNEAR OPTIMAL/ABOVE OPTIMAL........ 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 2.0 - 3.0 3. Tile Roofer al prosthesis hear t valves, recurre nt systemic emboli sm. 3.0 - 4.5 Comments to Mat Machine Tender: NURSE WILL BRING SPECIMEN TO LABPTT ACTIVATED 2018-07-20 06:24:00 Test Item Value Reference Range Interpretation Comments PTT ACTIVATED (test code = APTT) 29.3 SECONDS 22.0-33.0 N Comments to Mat Machine Tender: NURSE WILL BRING SPECIMEN TO LABBASIC METABOLIC [...] 9.6 MG/DL 8.4-10.2 N CA) Comments to Mat Machine Tender: NURSE WILL BRING SPECIMEN TO LAB Comments to Mat Machine Tender: NURSE WILL BRING SPECIMEN TO [id number] 06:13:00 Test Item Value Reference Range Interpretation Comments MAGNESIUM (test code = MAG) 2.2 MG/DL 1.6-2.3 N Comments to Mat Machine Tender: NURSE WILL BRING SPECIMEN TO LAB Comments to Mat Machine Tender: NURSE WILL BRING SPECIMEN TO LABCBC W/AUTO [id number] 06:02:00 Test Item Value Reference Range Interpretation [...]
--- NOTE | 2022-04-08 14:10 | EDPHYS ---
Physician Documentation [facility] Name: Shivani Lagunas Age: 46 yrs Sex: Female : 1975 Arrival Date: 04/08/2022 Time: 13:48 Bed 6 Private MD: ED Physician Bal Dowling HPI: 04/08 14:06 This 46 yrs old Female presents to ER via Ambulatory with complaints of snw Numbness Of Hand, Arm Pressure. 14:06 The patient or guardian reports tingling, numbness. The complaints affect the left hand snw diffusely, right hand diffusely. Context: The problem was sustained at home, resulted from an unknown cause. Onset: The symptoms/episode began/occurred acutely. Associated signs and symptoms: Pertinent positives: headache. Severity of symptoms: At their worst the symptoms were mild. The patient has experienced similar episodes in the past, multiple times. It is unknown whether or not the patient has recently seen a physician. Pt in ED in 02/02 for similar s/s, CT head negative. Historical: - Allergies: 13:56 Sulfa (Sulfonamide Antibiotics); hb - PMHx: 13:56 Bipolar disorder; Schizophrenia; Hypertensive disorder; hb - PSHx: 13:56 section; Cholecystectomy; hb - Immunization history:: Adult Immunizations up to date. - Social history:: Smoking status: Patient denies any tobacco usage or history of. ROS: 14:05 Eyes: Negative for injury, pain, redness, and discharge, ENT: Negative for injury, snw pain, and discharge, Neck: Negative for injury, pain, and swelling, Cardiovascular: Negative for chest pain, palpitations, and edema, Respiratory: Negative for shortness of breath, cough, wheezing, and pleuritic chest pain, Abdomen/GI: Negative for abdominal pain, nausea, vomiting, diarrhea, and constipation, Back: Negative for injury and pain, : Negative for injury, bleeding, discharge, and swelling, MS/Extremity: Negative for injury and deformity, Skin: Negative for injury, rash, and discoloration. 14:05 Constitutional: Positive for numbness to arms and legs. 14:05 Neuro: Positive for headache, tingling, of the right arm, left arm, right leg and left leg. Exam: 14:03 Constitutional: This is a well developed, well nourished patient who is awake, alert, snw and in no acute distress deep, rapid breaths, encouraged to slow resp rate Head/Face: Normocephalic, atraumatic. Eyes: Pupils equal round and reactive to light, extra-ocular motions intact. Lids and lashes normal. Conjunctiva and sclera are non-icteric and not injected. Cornea within normal limits. Periorbital areas with no swelling, redness, or edema. ENT: Nares patent. No nasal discharge, no septal abnormalities noted. Tympanic membranes are normal and external auditory canals are clear. Oropharynx with no redness, swelling, or masses, exudates, or evidence of obstruction, uvula midline. Mucous membranes moist. Neck: Trachea midline, no thyromegaly or masses palpated, and no cervical lymphadenopathy. Supple, full range of motion without nuchal rigidity, or vertebral point tenderness. No Meningismus. Chest/axilla: Normal chest wall appearance and motion. Nontender with no deformity. No lesions are appreciated. Cardiovascular: Regular rate and rhythm with a normal S1 and S2. No gallops, murmurs, or rubs. Normal PMI, no JVD. No pulse deficits. Respiratory: Lungs have equal breath sounds bilaterally, clear to auscultation and percussion. No rales, rhonchi or wheezes noted. No increased work of breathing, no retractions or nasal flaring. Abdomen/GI: Soft, non-tender, with normal bowel sounds. No distension or tympany. No guarding or rebound. No evidence of tenderness throughout. Back: No spinal tenderness. No costovertebral tenderness. Full range of motion. Skin: Warm, dry with normal turgor. Normal color with no rashes, no lesions, and no evidence of cellulitis. MS/ Extremity: Pulses equal, no cyanosis. Neurovascular intact. Full, normal range of motion. Neuro: Awake and alert, GCS 15, oriented to person, place, time, and situation. Cranial nerves II-XII grossly intact. Motor strength 5/5 in all extremities. Sensory grossly intact. Cerebellar exam normal. Normal gait. 14:03 Psych: Behavior/mood is anxious, Affect is calm, Patient has no thoughts/intents to harm self or others. Vital Signs: 13:53 BP 136 / 68; Pulse 85; Resp 18; Temp 98.5; Pulse Ox 100% on R/A; Weight 99.79 kg; hb Height 5 ft. 6 in. (167.64 cm); Pain 9/10; 13:53 Body Mass Index 35.51 (99.79 kg, 167.64 cm) hb MDM: 13:58 Patient medically screened. snw 14:11 Differential diagnosis: hyperventilation, TIA, carpal tunnel, anxiety. Data reviewed: snw vital signs, nurses notes. External Records Reviewed: Inpatient record: Multiple visits for similar s/s. Counseling: I had a detailed discussion with the patient and/or guardian regarding: the historical points, exam findings, and any diagnostic results supporting the discharge/admit diagnosis, the need for outpatient follow up, to return to the emergency department if symptoms worsen or persist or if there are any questions or concerns that arise at home. Special discussion: I have referred the patient to see his PCP for further evaluation of high blood pressure. Based on the history and exam findings, there is no indication for further emergent testing or inpatient evaluation. I discussed with the patient/guardian the need to see the primary care provider for further evaluation of the symptoms. 04/08 13:58 Order name: EKG; Complete Time: 13:59 snw 04/08 13:58 Order name: EKG - Nurse/Tech; Complete Time: 14:07 snw EC:05 Rate is 76 beats/min. Rhythm is regular. ME interval is normal. QRS interval is normal. snw QT interval is prolonged. Clinical impression: NSR w/ Non-specific ST/T Changes. Administered Medications: 14:14 Drug: Ketorolac 30 mg Route: IM; Site: right ventrogluteal; iw Disposition Summary: 04/08/22 14:09 Discharge Ordered Location: Home snw Condition: Stable snw Diagnosis - Hyperventilation snw - Headache snw Followup: snw - With: Emergency Department - When: As needed - Reason: Worsening of condition Followup: snw - With: Private Physician - When: 2 - 3 days - Reason: Recheck today's complaints, Continuance of care, Re-evaluation by your physician Discharge Instructions: - Discharge Summary Sheet snw - General Headache Without Cause snw - Hyperventilation snw - Rehydration, Adult snw Forms: - Medication Reconciliation Form snw - Thank You Letter snw - Antibiotic Education snw - Prescription Opioid Use snw Signatures: Vani Winter, QUILL STRIPPER-C QUILL STRIPPER-Csnw Mayelin Archibald, RN RN iw Jacqueline Pearson, RN RN hb
--- NOTE | 2022-04-08 14:10 | ER ---
Nurse's Notes [facility] Name: Shivani Lagunas Age: 46 yrs Sex: Female : 1975 Arrival Date: 04/08/2022 Time: 13:48 Bed 6 Private MD: Diagnosis: Hyperventilation;Headache Presentation: 04/08 13:53 Chief complaint: Numbness and tingling of bilateral arms and hands x 2 weeks, left arm hb feels worse today. Also c/o headache and nausea today. Coronavirus screen: At this time, the client does not indicate any symptoms associated with coronavirus-19. Ebola Screen: No symptoms or risks identified at this time. Initial Sepsis Screen: Does the patient meet any 2 criteria? No. Patient's initial sepsis screen is negative. Does the patient have a suspected source of infection? No. Patient's initial sepsis screen is negative. Risk Assessment: Do you want to hurt yourself or someone else? Patient reports no desire to harm self or others. Onset of symptoms was March 2022. 13:53 Method Of Arrival: Ambulatory hb 13:53 Acuity: LAICIA 3 hb Historical: - Allergies: 13:56 Sulfa (Sulfonamide Antibiotics); hb - PMHx: 13:56 Bipolar disorder; Schizophrenia; Hypertensive disorder; hb - PSHx: 13:56 section; Cholecystectomy; hb - Immunization history:: Adult Immunizations up to date. - Social history:: Smoking status: Patient denies any tobacco usage or history of. Assessment: 14:08 General: Appears Behavior is cooperative. iw 14:44 Reassessment: Patient appears in no apparent distress at this time. Patient and/or iw family updated on plan of care and expected duration. Pain level reassessed. Patient is alert, oriented x 3, equal unlabored respirations, skin warm/dry/pink. pt seeping. awakens easily to verbal stimuli Patient states feeling better. Patient states symptoms have improved. Vital Signs: 13:53 BP 136 / 68; Pulse 85; Resp 18; Temp 98.5; Pulse Ox 100% on R/A; Weight 99.79 kg; hb Height 5 ft. 6 in. (167.64 cm); Pain 9/10; 13:53 Body Mass Index 35.51 (99.79 kg, 167.64 cm) hb ED Course: 13:48 Patient arrived in ED. rg4 13:52 Vani Winter FNP-C [facility]. snw 13:52 Bal Dowling MD is Attending Physician. snw 13:56 Triage completed. hb 13:56 Arm band placed on. hb 14:08 Mayelin Archibald, RN is Primary Nurse. iw Administered Medications: 14:14 Drug: Ketorolac 30 mg Route: IM; Site: right ventrogluteal; iw Outcome: 14:09 Discharge ordered by . snw 14:44 Discharged to home ambulatory. iw 14:44 Condition: good 14:44 Discharge instructions given to patient, Instructed on discharge instructions, follow up and referral plans. Demonstrated understanding of instructions, follow-up care. 14:44 Patient left the ED. iw Signatures: Vani Winter FNP-C EDI ARCHITECT-Csnw Mayelin Archibald, RN RN Jacqueline Pearson RN RN Lalita Salsa rg4
[2022-04-08] MEDS ORDERED: KETOROLAC 30 MG/ML INJ ONE (14:16)
[2022-04-08 15:03] VITALS: BP 136/68; TEMP 98.5; O2SAT 100
--- NOTE | 2022-04-10 18:44 | EKG ---
Test Date: 2022-04-08 Test Time: 14:05:15 Laser/Electro Optics Technician: NICHOLE MEASUREMENT RESULTS: Intervals: Rate: 76 ID: [id number] QRSD: 104 QT: 414 QTc: 465 [place]: P: 44 ID: [id number] QRS: 17 T: 32 INTERPRETIVE STATEMENTS: Normal sinus rhythm Possible Left atrial enlargement Left ventricular hypertrophy Prolonged QT Abnormal ECG Compared to ECG 01/29/2022 18:28:45 Left ventricular hypertrophy now present Prolonged QT interval now present Electronically Signed On 04-10-22 18:40:37 FIELD MARKETING ASSOCIATE by Sony Guillermo
== END 2022-04-08 14:44 | disposition home or self-care (01) ==
LOC: ER 13:46
DX: R06.4 Hyperventilation (principal); R51.9 Headache, unspecified
CPT/HCPCS: 93005; 96372; 99283

== ENCOUNTER 2022-05-04 15:44 | Emergency (ER) | payer SELFPAY ==
--- OUTSIDE RECORDS SUMMARY | 2022-05-04 15:50 | XMS REPORT | Continuity of Care Document ---
:1975 Author Organization [facility] t Address [address] [place] [address] [place] [id number] Care Team Providers Name Role Phone Pcp, Patient Does Not Have A Primary Care Physician +[id number] Doctor Unassigned, [place] Attending Clinician Unavailable Pathology Attending Clinician Unavailable [...] Policy Number Effective Date Ex[place] [facility] [place] 2021 PENDING 00:00:00 Problems Condition Condition Condition Status Onset Resolution Last Treating Co mments Source Name Details Category Date Date Treatment Clinician Date No known No known Disease Unive rs active active ity of problems problems [facility] Allergies, Adverse Reactions, Alerts Allergy Allergy Status [...] Source Exposure to 2022-02-05 2022-02-15 Not sure [facility] SARS-CoV-2 00:00:00 08:57:00 [facility] (event) [place] Tobacco use and 2021-08-24 2021-08-24 Smokeless tobacco Un iversity of exposure 00:00:00 00:00:00 non-user [facility] Sex Assigned At [birth year] [facility] 00:00:00 00:00:00 [facility] Smoking Status Start Date Stop Date Source Never smoked tobacco [facility] Medications Ordered Filled Start Stop Current Ordering Indication Dosage Frequency Signature Comments Components Source Medication Medication Date Date Medication? Clinician (SIG) Name Name DULoxetine Yes [id number] 60mg Take 1 U nivers 60 mg 3-09 capsule by ity of capsule 00:00: mouth in [place] 00 the Medical morning Branch and 1 capsule in the evening. clonazePAM Yes [id number] Take 1 U nivers 1 mg tablet 3-09 tablet by ity of 00:00: mouth [place] 00 twice Medical daily as Branch needed for anxiety. lamoTRIgine 2023-0 Yes [id number] 100mg Take 1 [facility] 100 mg 3-09 tablet by ity of tablet 00:00: mouth in [place] 00 the Medical morning Branch and 1 tablet in the evening. traZODone 2023-0 Yes [id number] 50mg Take 1 U nivers 50 mg 3-09 tablet by ity of tablet 00:00: mouth at [place] 00 bedtime. Medical May cut Branch tablet in half. lithium 2023-0 Yes [id number] 900mg Take 2 Uni vers carbonate 3-09 tablets by ity of CR 450 mg 00:00: [place] 00 bedtime. Medica l Branch DULoxetine 3-0 Yes [id number] 60mg Take 1 U nivers 60 mg 3-09 capsule by ity of capsule 00:00: mouth in [place] 00 the Medical morning Branch and 1 capsule in the evening. clonazePAM 3-0 Yes [id number] Take 1 U nivers 1 mg tablet 3-09 tablet by ity of 00:00: mouth [place] 00 twice Medical daily as Branch needed for anxiety. lamoTRIgine 3-0 Yes [id number] 100mg Take 1 [facility] 100 mg 3-09 tablet by ity of tablet 00:00: mouth in [place] 00 the Medical morning Branch and 1 tablet in the evening. traZODone 3-0 Yes [id number] 50mg Take 1 U nivers 50 mg 3-09 tablet by ity of tablet 00:00: mouth at [place] 00 bedtime. Medical May cut Branch tablet in half. lithium 2023-0 Yes [id number] 900mg Take 2 Uni vers carbonate 3-09 tablets by ity of CR 450 mg 00:00: [place] 00 bedtime. Medica l Branch lamoTRIgine 3-0 Yes [id number] 100mg Take 1 [facility] 100 mg 1-26 tablet by ity of tablet 00:00: mouth in [place] 00 the Medical morning Branch and 1 tablet in the evening. lamoTRIgine 2023-0 Yes [id number] 100mg Take 1 [facility] 100 mg 1-26 tablet by ity of tablet 00:00: mouth in [place] 00 the Medical morning Branch and 1 tablet in the evening. lamoTRIgine 2023-0 Yes [id number] 100mg Take 1 [facility] 100 mg 1-26 tablet by ity of tablet 00:00: mouth in [place] 00 the [facility] morning Branch and 1 tablet in the evening. lamoTRIgine 2023-0 Yes [id number] 100mg Take 1 [facility] 100 mg 1-26 tablet by ity of tablet 00:00: mouth in [place] 00 the [facility] morning [place] and 1 tablet in the evening. lamoTRIgine 2023-0 2023- No [id number] 100mg Take 1 [facility] 100 mg 1-26 03-09 tablet by ity of tablet 00:00: 00:00 mouth in [place] 00 :00 the [facility] morning [place] and 1 tablet in the evening. lamoTRIgine 2023-0 2023- No [id number] 100mg Take 1 [facility] 100 mg 1-26 03-09 tablet by ity of tablet 00:00: 00:00 mouth in [place] 00 :00 the [facility] and 1 tablet in the evening. DULoxetine 2023-0 Yes [id number] 60mg Take 1 U nivers 60 mg 1-04 capsule by ity of capsule 00:00: mouth in [place] [address] the [facility] morning [place] and 1 capsule in the evening. lamoTRIgine 2023-0 Yes [id number] 100mg Take 1 [facility] 100 mg 1-04 tablet by ity of tablet 00:00: mouth in [place] 00 the [facility] morning [place] and 1 tablet in the evening. traZODone 2023-0 Yes [id number] 50mg Take 1 U nivers 50 mg 1-04 tablet by ity of tablet 00:00: mouth at [place] 00 bedtime. Medical May cut Branch tablet in half. clonazePAM 2023-0 Yes [id number] Take 1 U nivers 1 mg tablet 1-04 tablet by ity of 00:00: mouth [place] 00 twice Medical daily as Branch needed for anxiety. lithium 600 2023-0 Yes [id number] 600mg Take 1 [facility] mg capsule 1-04 capsule by ity of 00:00: mouth in [place] [address] the [facility] and 1 capsule in the evening. DULoxetine 2023-0 Yes [id number] 60mg Take 1 U nivers 60 mg 1-04 capsule by ity of capsule 00:00: mouth in [place] [address] the [facility] and 1 capsule in the evening. lamoTRIgine 2023-0 Yes [id number] 100mg Take 1 [facility] 100 mg 1-04 tablet by ity of tablet 00:00: mouth in [place] 00 the Medical morning Branch and 1 tablet in the evening. traZODone 2023-0 Yes [id number] 50mg Take 1 U nivers 50 mg 1-04 tablet by ity of tablet 00:00: mouth at [place] 00 bedtime. Medical May cut Branch tablet in half. clonazePAM 2023-0 Yes [id number] Take 1 U nivers 1 mg tablet 1-04 tablet by ity of 00:00: mouth [place] 00 twice Medical daily as Branch needed for anxiety. lithium 3-0 Yes [id number] 900mg Take 2 Uni vers carbonate 1-04 tablets by ity of CR 450 mg 00:00: [place] 00 bedtime. Medica l Branch DULoxetine 3-0 Yes [id number] 60mg Take 1 U nivers 60 mg 1-04 capsule by ity of capsule 00:00: mouth in [place] 00 the Medical morning Branch and 1 capsule in the evening. lamoTRIgine 2022-0 Yes [id number] 100mg Take 1 [facility] 100 mg 1-04 tablet by ity of tablet 00:00: mouth in [place] 00 the Medical morning Branch and 1 tablet in the evening. traZODone 3-0 Yes [id number] 50mg Take 1 U nivers 50 mg 1-04 tablet by ity of tablet 00:00: mouth at [place] 00 bedtime. Medical May cut Branch tablet in half. clonazePAM 3-0 Yes [id number] Take 1 U nivers 1 mg tablet 1-04 tablet by ity of 00:00: mouth [place] 00 twice Medical daily as Branch needed for anxiety. lithium 3-0 Yes [id number] 900mg Take 2 Uni vers carbonate 1-04 tablets by ity of CR 450 mg 00:00: [place] 00 bedtime. Medica l Branch DULoxetine 3-0 Yes [id number] 60mg Take 1 U nivers 60 mg 1-04 capsule by ity of capsule 00:00: mouth in [place] 00 the Medical morning Branch and 1 capsule in the evening. lamoTRIgine 2023-0 Yes [id number] 100mg Take 1 [facility] 100 mg 1-04 tablet by ity of tablet 00:00: mouth in [place] 00 the Medical morning Branch and 1 tablet in the evening. traZODone 2023-0 Yes [id number] 50mg Take 1 U nivers 50 mg 1-04 tablet by ity of tablet 00:00: mouth at [place] 00 bedtime. Medical May cut Branch tablet in half. clonazePAM 3-0 Yes [id number] Take 1 U nivers 1 mg tablet 1-04 tablet by ity of 00:00: mouth [place] 00 twice Medical daily as Branch needed for anxiety. lithium 3-0 Yes [id number] 900mg Take 2 Uni vers carbonate 1-04 tablets by ity of CR 450 mg 00:00: [place] 00 bedtime. Medica l Branch DULoxetine 2022-0 Yes [id number] 60mg Take 1 U nivers 60 mg 1-04 capsule by ity of capsule 00:00: mouth in [place] 00 the Medical morning Branch and 1 capsule in the evening. lamoTRIgine 3-0 Yes [id number] 100mg Take 1 [facility] 100 mg 1-04 tablet by ity of tablet 00:00: mouth in [place] 00 the Medical morning Branch and 1 tablet in the evening. traZODone 2022-0 Yes [id number] 50mg Take 1 U nivers 50 mg 1-04 tablet by ity of tablet 00:00: mouth at [place] 00 bedtime. Medical May cut Branch tablet in half. clonazePAM 3-0 Yes [id number] Take 1 U nivers 1 mg tablet 1-04 tablet by ity of 00:00: mouth [place] 00 twice Medical daily as Branch needed for anxiety. lithium 3-0 Yes [id number] 900mg Take 2 Uni vers carbonate 1-04 tablets by ity of CR 450 mg 00:00: [place] 00 bedtime. Medica l Branch DULoxetine 3-0 Yes [id number] 60mg Take 1 U nivers 60 mg 1-04 capsule by ity of capsule 00:00: mouth in [place] 00 the Medical morning Branch and 1 capsule in the evening. lamoTRIgine 3-0 Yes [id number] 100mg Take 1 [facility] 100 mg 1-04 tablet by ity of tablet 00:00: mouth in [place] 00 the Medical morning Branch and 1 tablet in the evening. traZODone 3-0 Yes [id number] 50mg Take 1 U nivers 50 mg 1-04 tablet by ity of tablet 00:00: mouth at [place] 00 bedtime. Medical May cut Branch tablet in half. clonazePAM 2022-0 Yes [id number] Take 1 U nivers 1 mg tablet 1-04 tablet by ity of 00:00: mouth [place] 00 twice Medical daily as Branch needed for anxiety. lithium 2022-0 Yes [id number] 900mg Take 2 Uni vers carbonate 1-04 tablets by ity of CR 450 mg 00:00: [place] 00 bedtime. Medica l Branch DULoxetine 2022-0 Yes [id number] 60mg Take 1 U nivers 60 mg 1-04 capsule by ity of capsule 00:00: mouth in [place] 00 the Medical morning Branch and 1 capsule in the evening. traZODone 2022-0 Yes [id number] 50mg Take 1 U nivers 50 mg 1-04 tablet by ity of tablet 00:00: mouth at [place] 00 bedtime. Medical May cut Branch tablet in half. clonazePAM 2022-0 Yes [id number] Take 1 U nivers 1 mg tablet 1-04 tablet by ity of 00:00: mouth [place] 00 twice Medical daily as Branch needed for anxiety. lithium 2022-0 Yes [id number] 900mg Take 2 Uni vers carbonate 1-04 tablets by ity of CR 450 mg 00:00: [place] 00 bedtime. Medica l Branch DULoxetine 2022-0 Yes [id number] 60mg Take 1 U nivers 60 mg 1-04 capsule by ity of capsule 00:00: mouth in [place] 00 the Medical morning Branch and 1 capsule in the evening. traZODone 2022-0 Yes [id number] 50mg Take 1 U nivers 50 mg 1-04 tablet by ity of tablet 00:00: mouth at [place] 00 bedtime. Medical May cut Branch tablet in half. clonazePAM 2022-0 Yes [id number] Take 1 U nivers 1 mg tablet 1-04 tablet by ity of 00:00: mouth [place] 00 twice Medical daily as Branch needed for anxiety. lithium 2022-0 Yes [id number] 900mg Take 2 Uni vers carbonate 1-04 tablets by ity of CR 450 mg 00:00: [place] 00 bedtime. Medica l Branch DULoxetine 2022-0 Yes [id number] 60mg Take 1 U nivers 60 mg 1-04 capsule by ity of capsule 00:00: mouth in [place] 00 the Medical morning Branch and 1 capsule in the evening. traZODone 2022-0 Yes [id number] 50mg Take 1 U nivers 50 mg 1-04 tablet by ity of tablet 00:00: mouth at [place] 00 bedtime. Medical May cut Branch tablet in half. clonazePAM 2022-0 Yes [id number] Take 1 U nivers 1 mg tablet 1-04 tablet by ity of 00:00: mouth [place] 00 twice Medical daily as Branch needed for anxiety. lithium 2022-0 Yes [id number] 900mg Take 2 Uni vers carbonate 1-04 tablets by ity of CR 450 mg 00:00: [place] tablet 00 bedtime. Medica l Branch DULoxetine 2022-0 Yes [id number] 60mg Take 1 U nivers 60 mg 1-04 capsule by ity of capsule 00:00: mouth in [place] 00 the Medical morning Branch and 1 capsule in the evening. traZODone 2022-0 Yes [id number] 50mg Take 1 U nivers 50 mg 1-04 tablet by ity of tablet 00:00: mouth at [place] 00 bedtime. Medical May cut Branch tablet in half. clonazePAM 2022-0 Yes [id number] Take 1 U nivers 1 mg tablet 1-04 tablet by ity of 00:00: mouth [place] 00 twice Medical daily as Branch needed for anxiety. lithium 2022-0 Yes [id number] 900mg Take 2 Uni vers carbonate 1-04 tablets by ity of CR 450 mg 00:00: [place] tablet 00 bedtime. Medica l Branch traZODone 2022-0 2022- No [id number] 50mg Take 1 [facility] 50 mg 1-04 03-09 tablet by ity of tablet 00:00: 00:00 mouth at [place] 00 :00 bedtime. Medical May cut Branch tablet in half. lithium 2022-0 2022- No [id number] 900mg Take 2 Un cristhian carbonate 1-04 03-09 tablets by ity of CR 450 mg 00:00: 00:00 mouth at [place] 00 :00 bedtime. Medica l Branch traZODone 2022-0 2022- No [id number] 50mg Take 1 [facility] 50 mg 1-04 03-09 tablet by ity of tablet 00:00: 00:00 mouth at [place] 00 :00 bedtime. Medical May cut Branch tablet in half. lithium 2022-0 2022- No [id number] 900mg Take 2 Un cristhian carbonate 02-15-09 tablets by ity of CR 450 mg 00:00: 00:00 mouth at [place] tablet 00 :00 bedtime. Medica l Branch DULoxetine 2022-0 2022- No [id number] 60mg Take 1 [facility] 60 mg 02-15-08 capsule by ity of capsule 00:00: 00:00 mouth in [place] 00 :00 the Medical morning Branch and 1 capsule in the evening. clonazePAM 2022-0 2022- No [id number] Take 1 Univers 1 mg tablet 02-15-08 tablet by it y of 00:00: 00:00 mouth [place] 00 :00 twice Medical daily as Branch needed for anxiety. DULoxetine 2022-0 2022- No [id number] 60mg Take 1 [facility] 60 mg 02-15 capsule by ity of capsule 00:00: 00:00 mouth in [place] 00 :00 the Medical morning Branch and 1 capsule in the evening. clonazePAM 2022-0 2022- No [id number] Take 1 [facility] 1 mg tablet 02-15 tablet by it y of 00:00: 00:00 mouth [place] 00 :00 twice Medical daily as Branch needed for anxiety. lamoTRIgine 3-0 3- No [id number] 100mg Take 1 [facility] 100 mg 02-15 tablet by ity of tablet 00:00: 00:00 mouth in [place] 00 :00 the Medical morning Branch and 1 tablet in the evening. lamoTRIgine 2023-0 3- No [id number] 100mg Take 1 [facility] 100 mg 02-15 tablet by ity of tablet 00:00: 00:00 mouth in [place] 00 :00 the Medical morning Branch and 1 tablet in the evening. lamoTRIgine 2023-0 3- No [id number] 100mg Take 1 [facility] 100 mg -05 13- tablet by ity of tablet 00:00: 00:00 mouth in [place] 00 :00 the Medical morning Branch and 1 tablet in the evening. lamoTRIgine 2023-0 3- No [id number] 100mg Take 1 [facility] 100 mg -03-09 tablet by ity of tablet 00:00: 00:00 mouth in [place] 00 :00 the Medical morning Branch and 1 tablet in the evening. lithium 600 2022-0 3- No [id number] 600mg Take 1 [facility] mg capsule 02-15 capsule by it y of 00:00: 00:00 mouth in [place] 00 :00 the Medical morning Branch and 1 capsule in the evening. lithium 600 2022-0 3- No [id number] 600mg Take 1 [facility] mg capsule 02-15 capsule by it y of 00:00: 00:00 mouth in [place] 00 :00 the Medical morning Branch and 1 capsule in the evening. lithium 600 2022-0 3- No [id number] 600mg Take 1 [facility] mg capsule 02-15 capsule by it y of 00:00: 00:00 mouth in [place] 00 :00 the Medical morning Branch and 1 capsule in the evening. lithium 600 2022-0 3- No [id number] 600mg Take 1 [facility] mg capsule 02-15 capsule by it y of 00:00: 00:00 mouth in [place] 00 :00 the Medical morning Branch and 1 capsule in the evening. lithium 600 2022-0 3- No [id number] 600mg Take 1 [facility] mg capsule 02-15 capsule by it y of 00:00: 00:00 mouth in [place] 00 :00 the Medical morning Branch and 1 capsule in the evening. lithium 600 2022-0 3- No [id number] 600mg Take 1 [facility] mg capsule 02-15 capsule by it y of 00:00: 00:00 mouth in [place] 00 :00 the Medical morning Branch and 1 capsule in the evening. lithium 600 2022-0 3- No [id number] 600mg Take 1 [facility] mg capsule 02-15 capsule by it y of 00:00: 00:00 mouth in [place] 00 :00 the Medical morning Branch and 1 capsule in the evening. lithium 600 2022-0 3- No [id number] 600mg Take 1 [facility] mg capsule 02-15 capsule by it y of 00:00: 00:00 mouth in [place] 00 :00 the Medical morning Branch and 1 capsule in the evening. DULoxetine 2021-02 Yes [id number] 60mg Take 1 U nivers 60 mg 2-28 capsule by ity of capsule 00:00: mouth in [place] 00 the Medical morning Branch and 1 capsule in the evening. DULoxetine 2021-02- No [id number] 60mg Take 1 [facility] 60 mg 2-28 -04 capsule by ity of capsule 00:00: 00:00 mouth in [place] 00 :00 the Medical morning Branch and 1 capsule in the evening. DULoxetine 2021-02- No [id number] 60mg Take 1 [facility] 60 mg 2-28 -04 capsule by ity of capsule 00:00: 00:00 mouth in [place] 00 :00 the Medical morning Branch and 1 capsule in the evening. DULoxetine 2021-02- No [id number] 60mg Take 1 [facility] 60 mg 2-28 -04 capsule by ity of capsule 00:00: 00:00 mouth in [place] 00 :00 the Medical morning Branch and 1 capsule in the evening. DULoxetine 2021-02- No [id number] 60mg Take 1 [facility] 60 mg 2-28 -04 capsule by ity of capsule 00:00: 00:00 mouth in [place] 00 :00 the Medical morning Branch and 1 capsule in the evening. DULoxetine 2021-02- No [id number] 60mg Take 1 [facility] 60 mg 2-28 -04 capsule by ity of capsule 00:00: 00:00 mouth in [place] 00 :00 the Medical morning Branch and 1 capsule in the evening. DULoxetine 2021-02- No [id number] 60mg Take 1 [facility] 60 mg 2-28 -04 capsule by ity of capsule 00:00: 00:00 mouth in [place] 00 :00 the Medical morning Branch and 1 capsule in the evening. DULoxetine 2021-02- No [id number] 60mg Take 1 [facility] 60 mg 2-28 -04 capsule by ity of capsule 00:00: 00:00 mouth in [place] 00 :00 the Medical morning Branch and 1 capsule in the evening. DULoxetine 2021-02- No [id number] 60mg Take 1 [facility] 60 mg 2-28 -04 capsule by ity of capsule 00:00: 00:00 mouth in [place] 00 :00 the Medical morning Branch and 1 capsule in the evening. lamoTRIgine 2021-02 Yes [id number] 100mg Take 1 [facility] 100 mg 2-22 tablet by ity of tablet 00:00: mouth in [place] 00 the Medical morning Branch and 1 tablet in the evening. lamoTRIgine 2022-1 Yes [id number] 100mg Take 1 [facility] 100 mg 2-22 tablet by ity of tablet 00:00: mouth in [place] 00 the Medical morning Branch and 1 tablet in the evening. lamoTRIgine 2021-3- No [id number] 100mg Take 1 [facility] 100 mg 2-22 -04 tablet by ity of tablet 00:00: 00:00 mouth in [place] 00 :00 the Medical morning Branch and 1 tablet in the evening. lamoTRIgine 2021-3- No [id number] 100mg Take 1 [facility] 100 mg 2-22 -04 tablet by ity of tablet 00:00: 00:00 mouth in [place] 00 :00 the Medical morning Branch and 1 tablet in the evening. lamoTRIgine 2021-3- No [id number] 100mg Take 1 [facility] 100 mg 2-22 -04 tablet by ity of tablet 00:00: 00:00 mouth in [place] 00 :00 the Medical morning Branch and 1 tablet in the evening. lamoTRIgine 2021-3- No [id number] 100mg Take 1 [facility] 100 mg 2-22 -04 tablet by ity of tablet 00:00: 00:00 mouth in [place] 00 :00 the Medical morning Branch and 1 tablet in the evening. lamoTRIgine 2021-3- No [id number] 100mg Take 1 [facility] 100 mg 2-22 -04 tablet by ity of tablet 00:00: 00:00 mouth in [place] 00 :00 the Medical morning Branch and 1 tablet in the evening. lamoTRIgine 2021-3- No [id number] 100mg Take 1 [facility] 100 mg 2-22 -04 tablet by ity of tablet 00:00: 00:00 mouth in [place] 00 :00 the Medical morning Branch and 1 tablet in the evening. lamoTRIgine 2021-3- No [id number] 100mg Take 1 [facility] 100 mg 2-22 -04 tablet by ity of tablet 00:00: 00:00 mouth in [place] 00 :00 the Medical morning Branch and 1 tablet in the evening. lamoTRIgine 2021-3- No [id number] 100mg Take 1 [facility] 100 mg 2-22 -04 tablet by ity of tablet 00:00: 00:00 mouth in [place] 00 :00 the Medical morning Branch and 1 tablet in the evening. traZODone 2022-1 Yes [id number] 50mg Take 1 U nivers 50 mg 1-30 tablet by ity of tablet 00:00: mouth at [place] 00 bedtime. Medical May cut Branch tablet in half. lamoTRIgine 2021-02 Yes [id number] 100mg Take 1 [facility] 100 mg 1-30 tablet by ity of tablet 00:00: mouth in [place] 00 the Medical morning Branch and 1 tablet in the evening. traZODone 2021-02 Yes [id number] 50mg Take 1 U nivers 50 mg 1-30 tablet by ity of tablet 00:00: mouth at [place] 00 bedtime. Medical May cut Branch tablet in half. lamoTRIgine 2021-02 Yes [id number] 100mg Take 1 [facility] 100 mg 1-30 tablet by ity of tablet 00:00: mouth in [place] 00 the Medical morning Branch and 1 tablet in the evening. traZODone 2021-02 Yes [id number] 50mg Take 1 U nivers 50 mg 1-30 tablet by ity of tablet 00:00: mouth at [place] 00 bedtime. Medical May cut Branch tablet in half. lamoTRIgine 2021-02 Yes [id number] 100mg Take 1 [facility] 100 mg 1-30 tablet by ity of tablet 00:00: mouth in [place] 00 the Medical morning Branch and 1 tablet in the evening. traZODone 2021-02 Yes [id number] 50mg Take 1 U nivers 50 mg 1-30 tablet by ity of tablet 00:00: mouth at [place] [address] bedtime. Medical May cut Branch tablet in half. traZODone 2021-02 Yes [id number] 50mg Take 1 U nivers 50 mg 1-30 tablet by ity of tablet 00:00: mouth at [place] 00 bedtime. Medical May cut Branch tablet in half. traZODone 2021-02- No [id number] 50mg Take 1 [facility] 50 mg 1-30 -04 tablet by ity of tablet 00:00: 00:00 mouth at [place] 00 :00 bedtime. Medical May cut Branch tablet in half. traZODone 2021-02- No [id number] 50mg Take 1 [facility] 50 mg 1-30 -04 tablet by ity of tablet 00:00: 00:00 mouth at [place] 00 :00 bedtime. Medical May cut Branch tablet in half. traZODone 2021-02- No [id number] 50mg Take 1 [facility] 50 mg 1-30 -04 tablet by ity of tablet 00:00: 00:00 mouth at [place] 00 :00 bedtime. Medical May cut Branch tablet in half. traZODone 2021-02- No [id number] 50mg Take 1 [facility] 50 mg 1-30 -04 tablet by ity of tablet 00:00: 00:00 mouth at [place] 00 :00 bedtime. Medical May cut Branch tablet in half. traZODone 2021-02- No [id number] 50mg Take 1 [facility] 50 mg 1-30 -04 tablet by ity of tablet 00:00: 00:00 mouth at [place] 00 :00 bedtime. Medical May cut Branch tablet in half. traZODone 2021-02- No [id number] 50mg Take 1 [facility] 50 mg 1-30 -04 tablet by ity of tablet 00:00: 00:00 mouth at [place] 00 :00 bedtime. Medical May cut Branch tablet in half. traZODone 2021-02- No [id number] 50mg Take 1 [facility] 50 mg 1-30 -04 tablet by ity of tablet 00:00: 00:00 mouth at [place] 00 :00 bedtime. Medical May cut Branch tablet in half. traZODone 2021-02- No [id number] 50mg Take 1 [facility] 50 mg 1-30 -04 tablet by ity of tablet 00:00: 00:00 mouth at [place] 00 :00 bedtime. Medical May cut Branch tablet in half. lamoTRIgine 2021-02- No [id number] 100mg Take 1 [facility] 100 mg 1-30 12-22 tablet by ity of tablet 00:00: 00:00 mouth in [place] 00 :00 the Medical morning Branch and 1 tablet in the evening. lamoTRIgine 2021-02- No [id number] 100mg Take 1 [facility] 100 mg 1-30 12-22 tablet by ity of tablet 00:00: 00:00 mouth in [place] 00 :00 the Medical morning Branch and 1 tablet in the evening. lamoTRIgine 2021-02- No [id number] 100mg Take 1 [facility] 100 mg 1-30 12-22 tablet by ity of tablet 00:00: 00:00 mouth in [place] 00 :00 the Medical morning Branch and 1 tablet in the evening. lamoTRIgine 2021-02- No [id number] 100mg Take 1 [facility] 100 mg 1-30 12-22 tablet by ity of tablet 00:00: 00:00 mouth in [place] 00 :00 the Medical morning Branch and 1 tablet in the evening. lamoTRIgine 2021-02- No [id number] 100mg Take 1 [facility] 100 mg 1-30 12-22 tablet by ity of tablet 00:00: 00:00 mouth in [place] 00 :00 the Medical morning Branch and 1 tablet in the evening. DULoxetine 2021-02 Yes [id number] 60mg Take 1 U nivers 60 mg 1-28 capsule by ity of capsule 00:00: mouth in [place] 00 the Medical morning Branch and 1 capsule in the evening. clonazePAM 2021-02 Yes [id number] Take 1 U nivers 1 mg tablet 1-28 tablet by ity of 00:00: mouth [place] 00 twice Medical daily as Branch needed for anxiety. DULoxetine 2021-02 Yes [id number] 60mg Take 1 U nivers 60 mg 1-28 capsule by ity of capsule 00:00: mouth in [place] 00 the Medical morning Branch and 1 capsule in the evening. clonazePAM 2021-02 Yes [id number] Take 1 U nivers 1 mg tablet 1-28 tablet by ity of 00:00: mouth [place] 00 twice Medical daily as Branch needed for anxiety. DULoxetine 2021-02 Yes [id number] 60mg Take 1 U nivers 60 mg 1-28 capsule by ity of capsule 00:00: mouth in [place] 00 the Medical morning Branch and 1 capsule in the evening. clonazePAM 2021-02 Yes [id number] Take 1 U nivers 1 mg tablet 1-28 tablet by ity of 00:00: mouth [place] 00 twice Medical daily as Branch needed for anxiety. DULoxetine 2021-02 Yes [id number] 60mg Take 1 U nivers 60 mg 1-28 capsule by ity of capsule 00:00: mouth in [place] 00 the Medical morning Branch and 1 capsule in the evening. clonazePAM 2021-02 Yes [id number] Take 1 U nivers 1 mg tablet 1-28 tablet by ity of 00:00: mouth [place] 00 twice Medical daily as Branch needed for anxiety. DULoxetine 2021-02 Yes [id number] 60mg Take 1 [facility] 60 mg 1-28 capsule by [facility] capsule 00:00: mouth in [place] 00 the Medical morning Branch and 1 capsule in the evening. clonazePAM 2021-02 Yes [id number] Take 1 [facility] 1 mg tablet 1-28 tablet by [facility] of 00:00: mouth [place] 00 twice Medical daily as Branch needed for anxiety. DULoxetine 2021-02 Yes [id number] 60mg Take 1 [facility] 60 mg 1-28 capsule by [facility] of capsule 00:00: mouth in [place] 00 the Medical morning Branch and 1 capsule in the evening. clonazePAM 2021-02 Yes [id number] Take 1 [facility] 1 mg tablet 1-28 tablet by [facility] of 00:00: mouth [place] 00 twice Medical daily as Branch needed for anxiety. clonazePAM 2021-02 Yes [id number] Take 1 [facility] 1 mg tablet -28 tablet by [facility] of 00:00: mouth [place] 00 twice Medical daily as Branch needed for anxiety. clonazePAM 2021-02- No [id number] Take 1 [facility] 1 mg tablet 03-11 tablet by it y of 00:00: 00:00 mouth [place] 00 :00 twice Medical daily as Branch needed for anxiety. clonazePAM 2021-02- No [id number] Take 1 [facility] 1 mg tablet 03-11 tablet by it y of 00:00: 00:00 mouth [place] 00 :00 twice Medical daily as Branch needed for anxiety. clonazePAM 2021-02- No [id number] Take 1 [facility] 1 mg tablet 03-11 tablet by it y of 00:00: 00:00 mouth [place] 00 :00 twice Medical daily as Branch needed for anxiety. clonazePAM 2021-02- No [id number] Take 1 [facility] 1 mg tablet 03-11 tablet by it y of 00:00: 00:00 mouth [place] 00 :00 twice Medical daily as Branch needed for anxiety. clonazePAM 2021-02- No [id number] Take 1 [facility] 1 mg tablet 03-11- tablet by it y of 00:00: 00:00 mouth [place] 00 :00 twice Medical daily as Branch needed for anxiety. clonazePAM 2021-02- No [id number] Take 1 [facility] 1 mg tablet 03-11 tablet by it y of 00:00: 00:00 mouth [place] 00 :00 twice Medical daily as Branch needed for anxiety. clonazePAM 2021-02- No [id number] Take 1 [facility] 1 mg tablet 03-11 tablet by it y of 00:00: 00:00 mouth [place] 00 :00 twice Medical daily as Branch needed for anxiety. clonazePAM 2021-02- No [id number] Take 1 [facility] 1 mg tablet 03-11 tablet by it y of 00:00: 00:00 mouth [place] 00 :00 twice Medical daily as Branch needed for anxiety. DULoxetine 2021-02- No [id number] 60mg Take 1 [facility] 60 mg 1-28 12-27 capsule by [facility] of capsule 00:00: 00:00 mouth in [place] 00 :00 the Medical morning Branch and 1 capsule in the evening. DULoxetine 2021-02- No [id number] 60mg Take 1 [facility] 60 mg 1-28 12-27 capsule by [facility] of capsule 00:00: 00:00 mouth in [place] 00 :00 the Medical morning Branch and 1 capsule in the evening. DULoxetine 2021-02- No [id number] 60mg Take 1 [facility] 60 mg 1-28 12-27 capsule by [facility] of capsule 00:00: 00:00 mouth in [place] 00 :00 the Medical morning Branch and 1 capsule in the evening. DULoxetine 2021-02- No [id number] 60mg Take 1 [facility] 60 mg 1-28 12-27 capsule by [facility] of capsule 00:00: 00:00 mouth in [place] 00 :00 the Medical morning Branch and 1 capsule in the evening. DULoxetine 2021-02- No [id number] 60mg Take 1 [facility] 60 mg 1-28 12-27 capsule by [facility] of capsule 00:00: 00:00 mouth in [place] 00 :00 the Medical morning Branch and 1 capsule in the evening. traZODone 2021-02 Yes [id number] 50mg Take 1 [facility] 50 mg 1-22 tablet by [facility] of tablet 00:00: mouth at [place] 00 bedtime. Medical May cut Branch tablet in half. traZODone 2021-02 Yes [id number] 50mg Take 1 [facility] 50 mg 1-22 tablet by [facility] of tablet 00:00: mouth at [place] 00 bedtime. Medical May cut Branch tablet in half. traZODone 2021-02 Yes [id number] 50mg Take 1 [facility] 50 mg 1-22 tablet by [facility] of tablet 00:00: mouth at [place] 00 bedtime. Medical May cut Branch tablet in half. traZODone 2021-02- No [id number] 50mg Take 1 [facility] 50 mg 1-22 11-30 tablet by [facility] of tablet 00:00: 00:00 mouth at [place] 00 :00 bedtime. Medical May cut Branch tablet in half. traZODone 2021-02- No [id number] 50mg Take 1 [facility] 50 mg 1-22 11-30 tablet by [facility] of tablet 00:00: 00:00 mouth at [place] 00 :00 bedtime. Medical May cut Branch tablet in half. traZODone 2021-02- No [id number] 50mg Take 1 [facility] 50 mg 1-22 11-30 tablet by [facility] of tablet 00:00: 00:00 mouth at [place] 00 :00 bedtime. Medical May cut Branch tablet in half. traZODone 2021-02- No [id number] 50mg Take 1 [facility] 50 mg 1-22 11-30 tablet by [facility] of tablet 00:00: 00:00 mouth at [place] 00 :00 bedtime. Medical May cut Branch tablet in half. traZODone 2021-02- No [id number] 50mg Take 1 [facility] 50 mg 1-22 11-30 tablet by [facility] of tablet 00:00: 00:00 mouth at [place] 00 :00 bedtime. Medical May cut Branch tablet in half. DULoxetine 2021-02 Yes [id number] 60mg Take 1 [facility] 60 mg 0-25 capsule by [facility] of capsule 00:00: mouth in [place] 00 the Medical morning Branch and 1 capsule in the evening. DULoxetine 2021-02 Yes [id number] 60mg Take 1 [facility] 60 mg 0-25 capsule by [facility] of capsule 00:00: mouth in [place] 00 the Medical morning Branch and 1 capsule in the evening. DULoxetine 2021-02 Yes [id number] 60mg Take 1 [facility] 60 mg 0-25 capsule by [facility] capsule 00:00: mouth in [place] 00 the Medical morning Branch and 1 capsule in the evening. DULoxetine 2021-02- No [id number] 60mg Take 1 [facility] 60 mg 0-25 11-28 capsule by [facility] of capsule 00:00: 00:00 mouth in [place] 00 :00 the Medical morning Branch and 1 capsule in the evening. DULoxetine 2021-02- No [id number] 60mg Take 1 [facility] 60 mg 0-25 11-28 capsule by [facility] of capsule 00:00: 00:00 mouth in [place] 00 :00 the Medical morning Branch and 1 capsule in the evening. DULoxetine 2021-02- No [id number] 60mg Take 1 [facility] 60 mg 0-25 11-28 capsule by [facility] of capsule 00:00: 00:00 mouth in [place] 00 :00 the Medical morning Branch and 1 capsule in the evening. DULoxetine 2021-02- No [id number] 60mg Take 1 [facility] 60 mg 0-25 11-28 capsule by [facility] of capsule 00:00: 00:00 mouth in [place] 00 :00 the Medical morning Branch and 1 capsule in the evening. DULoxetine 2021-02- No [id number] 60mg Take 1 [facility] 60 mg 0-25 11-28 capsule by [facility] of capsule 00:00: 00:00 mouth in [place] 00 :00 the Medical morning Branch and 1 capsule in the evening. clonazePAM 2021-02 Yes [id number] Take 1 [facility] 1 mg tablet 0-20 tablet by [facility] of 00:00: mouth [place] 00 twice Medical daily as Branch needed for anxiety. lithium 600 2021-02 Yes [id number] 600mg Take 1 [facility] mg capsule 0-20 capsule by [facility] of 00:00: mouth in [place] 00 the Medical morning Branch and 1 capsule in the evening. lamoTRIgine 2021-02 Yes [id number] 50mg Take 2 [facility] 25 mg 0-20 tablets by [facility] of tablet 00:00: mouth in [place] 00 the Medical morning Branch and 2 tablets in the evening. clonazePAM 2021-02 Yes [id number] Take 1 [facility] 1 mg tablet 0-20 tablet by [facility] of 00:00: mouth [place] 00 twice Medical daily as Branch needed for anxiety. lithium 600 2021-02 Yes [id number] 600mg Take 1 [facility] mg capsule 0-20 capsule by [facility] of 00:00: mouth in [place] 00 the Medical morning Branch and 1 capsule in the evening. lamoTRIgine 2021-02 Yes [id number] 50mg Take 2 [facility] 25 mg 0-20 tablets by [facility] of tablet 00:00: mouth in [address] and 2 tablets in the evening. clonazePAM 2021-02 Yes [id number] Take 1 [facility] 1 mg tablet 0-20 tablet by [facility] of 00:00: mouth [place] [address] twice Medical daily as Branch needed for anxiety. lithium 600 2021-02 Yes [id number] 600mg Take 1 [facility] mg capsule 0-20 capsule by [facility] of 00:00: mouth in [address] and 1 capsule in the evening. lamoTRIgine 2021-02 Yes [id number] 50mg Take 2 [facility] 25 mg 0-20 tablets by [facility] of tablet 00:00: mouth in [address] and 2 tablets in the evening. lithium 600 2021-02 Yes [id number] 600mg Take 1 [facility] mg capsule 0-20 capsule by [facility] of 00:00: mouth in [address] and 1 capsule in the evening. lamoTRIgine 2021-02 Yes [id number] 50mg Take 2 [facility] 25 mg 0-20 tablets by [facility] of tablet 00:00: mouth in [address] and 2 tablets in the evening. lithium 600 2021-02 Yes [id number] 600mg Take 1 [facility] mg capsule 0-20 capsule by [facility] of 00:00: mouth in [address] and 1 capsule in the evening. lamoTRIgine 2021-02 Yes [id number] 50mg Take 2 [facility] 25 mg 0-20 tablets by [facility] of tablet 00:00: mouth in [address] and 2 tablets in the evening. lithium 600 2021-02 Yes [id number] 600mg Take 1 [facility] mg capsule 0-20 capsule by [facility] of 00:00: mouth in [address] and 1 capsule in the evening. lithium 600 2021-02 Yes [id number] 600mg Take 1 [facility] mg capsule 0-20 capsule by [facility] of 00:00: mouth in [address] and 1 capsule in the evening. lithium 600 2021-02 Yes [id number] 600mg Take 1 [facility] mg capsule 0-20 capsule by [facility] of 00:00: mouth in [address] and 1 capsule in the evening. lithium 600 2021-02 Yes [id number] 600mg Take 1 [facility] mg capsule 0-20 capsule by [facility] of 00:00: mouth in [place] 00 the Medical morning Branch and 1 capsule in the evening. lithium 600 2021- Yes [id number] 600mg Take 1 [facility] mg capsule 0-20 capsule by [facility] of 00:00: mouth in [place] 00 the Medical morning Branch and 1 capsule in the evening. lithium 600 2021-2022- No [id number] 600mg Take 1 [facility] mg capsule 0-20 01-04 capsule by it y of 00:00: 00:00 mouth in [place] 00 :00 the Medical morning Branch and 1 capsule in the evening. lithium 600 2021-2022- No [id number] 600mg Take 1 [facility] mg capsule 0-20 01-04 capsule by it y of 00:00: 00:00 mouth in [place] 00 :00 the Medical morning Branch and 1 capsule in the evening. lithium 600 2021-2022- No [id number] 600mg Take 1 [facility] mg capsule 0-20 01-04 capsule by it y of 00:00: 00:00 mouth in [place] 00 :00 the Medical morning Branch and 1 capsule in the evening. lithium 600 2021-2022- No [id number] 600mg Take 1 [facility] mg capsule 0-20 01-04 capsule by it y of 00:00: 00:00 mouth in [place] 00 :00 the Medical morning Branch and 1 capsule in the evening. lithium 600 2021-2022- No [id number] 600mg Take 1 [facility] mg capsule 0-20 01-04 capsule by it y of 00:00: 00:00 mouth in [place] 00 :00 the Medical morning Branch and 1 capsule in the evening. lithium 600 2021-2022- No [id number] 600mg Take 1 [facility] mg capsule 0-20 01-04 capsule by it y of 00:00: 00:00 mouth in [place] 00 :00 the Medical morning Branch and 1 capsule in the evening. lithium 600 2021-3- No [id number] 600mg Take 1 [facility] mg capsule 0-20 01-04 capsule by it y of 00:00: 00:00 mouth in [place] 00 :00 the Medical morning Branch and 1 capsule in the evening. lithium 600 2021-2022- No [id number] 600mg Take 1 [facility] mg capsule 0-20 01-04 capsule by it y of 00:00: 00:00 mouth in [place] 00 :00 the Medical morning Branch and 1 capsule in the evening. lamoTRIgine 2021-02- No [id number] 50mg Take 2 [facility] 25 mg 0-20 11-30 tablets by [facility] of tablet 00:00: 00:00 mouth in [place] 00 :00 the Medical morning Branch and 2 tablets in the evening. lamoTRIgine 2021-02- No [id number] 50mg Take 2 [facility] 25 mg 0-20 11-30 tablets by [facility] of tablet 00:00: 00:00 mouth in [place] 00 :00 the Medical morning Branch and 2 tablets in the evening. lamoTRIgine 2021-02- No [id number] 50mg Take 2 [facility] 25 mg 0-20 11-30 tablets by [facility] of tablet 00:00: 00:00 mouth in [place] 00 :00 the Medical morning Branch and 2 tablets in the evening. lamoTRIgine 2021-02- No [id number] 50mg Take 2 [facility] 25 mg 0-20 11-30 tablets by [facility] of tablet 00:00: 00:00 mouth in [place] 00 :00 the Medical morning Branch and 2 tablets in the evening. lamoTRIgine 2021-02- No [id number] 50mg Take 2 [facility] 25 mg 0-20 11-30 tablets by [facility] of tablet 00:00: 00:00 mouth in [place] 00 :00 the Medical morning Branch and 2 tablets in the evening. clonazePAM 2021-02- No [id number] Take 1 [facility] 1 mg tablet 0-20 11-28 tablet by it y of 00:00: 00:00 mouth [place] 00 :00 twice Medical daily as Branch needed for anxiety. clonazePAM 2021-02- No [id number] Take 1 [facility] 1 mg tablet 0-20 11-28 tablet by it y of 00:00: 00:00 mouth [place] 00 :00 twice Medical daily as Branch needed for anxiety. clonazePAM 2021-02- No [id number] Take 1 [facility] 1 mg tablet 0-20 11-28 tablet by it y of 00:00: 00:00 mouth [place] 00 :00 twice Medical daily as Branch needed for anxiety. clonazePAM 2021-02- No [id number] Take 1 [facility] 1 mg tablet 0-20 11-28 tablet by it y of 00:00: 00:00 mouth [place] 00 :00 twice Medical daily as Branch needed for anxiety. clonazePAM 2021-02- No [id number] Take 1 [facility] 1 mg tablet 0-20 11-28 tablet by it y of 00:00: 00:00 mouth [place] 00 :00 twice Medical daily as Branch needed for anxiety. lamoTRIgine 2021-0 Yes [id number] 50mg Take 2 [facility] 25 mg 8-26 tablets by [facility] of tablet 00:00: mouth in [place] 00 the Medical morning Branch and 2 tablets in the evening. lamoTRIgine 2021-0 2021- No [id number] 50mg Take 2 [facility] 25 mg 8-26 10-19 tablets by [facility] of tablet 00:00: 00:00 mouth in [place] 00 :00 the Medical morning Branch and 2 tablets in the evening. lamoTRIgine 2021-0 2021- No [id number] 50mg Take 2 [facility] 25 mg 8-26 10-19 tablets by [facility] of tablet 00:00: 00:00 mouth in [place] 00 :00 the Medical morning Branch and 2 tablets in the evening. clonazePAM 2021-0 Yes [id number] Take no [facility] 1 mg tablet 8-25 more than it[facility] of 00:00: 1 mg twice [place] 00 daily as Medical needed for Branch anxiety lithium 600 2021-0 Yes [id number] 600mg Take 1 [facility] mg capsule 8-25 capsule by [facility] of 00:00: mouth in [place] 00 the Medical morning Branch and 1 capsule in the evening. clonazePAM 2021-0 2021- No [id number] Take no [facility] 1 mg tablet 8-25 10-19 more than it y of 00:00: 00:00 1 mg twice [place] 00 :00 daily as Medical needed for Branch anxiety lithium 600 2021-0 2021- No [id number] 600mg Take 1 [facility] mg capsule 8-25 10-19 capsule by it y of 00:00: 00:00 mouth in [place] 00 :00 the Medical morning Branch and 1 capsule in the evening. clonazePAM 2021-0 2021- No [id number] Take no [facility] 1 mg tablet 8-25 10-19 more than it y of 00:00: 00:00 1 mg twice [place] 00 :00 daily as Medical needed for Branch anxiety lithium 600 2021-0 2021- No [id number] 600mg Take 1 [facility] mg capsule 8-25 10-19 capsule by it y of 00:00: 00:00 mouth in [place] 00 :00 the Medical morning Branch and 1 capsule in the evening. Lamotrigine 2021-2021- No [id number] 50mg Take 1 [facility] 50 mg 8-25 08-26 tablet by [facility] of tablet 00:00: 00:00 mouth in [place] 00 :00 the Medical morning Branch and 1 tablet in the evening. Lamotrigine 2021-2021- No [id number] 50mg Take 1 [facility] 50 mg 8-11 08-25 tablet by [facility] of tablet 00:00: 00:00 mouth in [place] 00 :00 the Medical morning Branch and 1 tablet in the evening. DULoxetine 2021- Yes [id number] 60mg Take 1 [facility] 60 mg 7-27 capsule by [facility] of capsule 00:00: mouth in [place] 00 the Medical morning Branch and 1 capsule in the evening. DULoxetine 2021-2021- No [id number] 60mg Take 1 [facility] 60 mg 7-27 10-24 capsule by [facility] of capsule 00:00: 00:00 mouth in [place] 00 :00 the Medical morning Branch and 1 capsule in the evening. DULoxetine 2021-2021- No [id number] 60mg Take 1 [facility] 60 mg 7-27 10-24 capsule by [facility] of capsule 00:00: 00:00 mouth in [place] 00 :00 the Medical morning Branch and 1 capsule in the evening. DULoxetine 2021-2021- No [id number] 60mg Take 1 [facility] 60 mg 7-27 10-24 capsule by [facility] of capsule 00:00: 00:00 mouth in [place] 00 :00 the Medical morning Branch and 1 capsule in the evening. Lamotrigine 2021-0 2021- No [id number] 50mg Take 1 [facility] 50 mg 7-18 08-11 tablet by [facility] of tablet 00:00: 00:00 mouth in [place] 00 :00 the Medical morning Branch and 1 tablet in the evening. lithium 600 2021-2021- No [id number] 600mg Take 1 [facility] mg capsule 7-13 08-25 capsule by it y of 00:00: 00:00 mouth in [place] 00 :00 the Medical morning Branch and 1 capsule in the evening. traZODone 2021-0 Yes [id number] 50mg Take 1 [facility] 50 mg 6-28 tablet by [facility] of tablet 00:00: mouth at [place] [address] bedtime. Medical May cut Branch tablet in half. DULoxetine 2021-0 Yes [id number] 60mg Take 1 [facility] 60 mg 6-28 capsule by [facility] of capsule 00:00: mouth 2 [place] (two) Medical times Branch daily. traZODone 2021-0 Yes [id number] 50mg Take 1 [facility] 50 mg 6-28 tablet by [facility] of tablet 00:00: mouth at [place] 00 bedtime. Medical May cut Branch tablet in half. DULoxetine 2021-0 Yes [id number] 60mg Take 1 [facility] 60 mg 6-28 capsule by [facility] of capsule 00:00: mouth 2 [place] (two) Medical times Branch daily. traZODone 2021-0 Yes [id number] 50mg Take 1 [facility] 50 mg 6-28 tablet by [facility] of tablet 00:00: mouth at [place] [address] bedtime. Medical May cut Branch tablet in half. DULoxetine 2021-0 Yes [id number] 60mg Take 1 [facility] 60 mg 6-28 capsule by [facility] of capsule 00:00: mouth 2 [place] (two) Medical times Branch daily. DULoxetine 2021-0 Yes [id number] 60mg Take 1 [facility] 60 mg 6-28 capsule by [facility] of capsule 00:00: mouth 2 [place] (two) Medical times Branch daily. traZODone 2021-2021- No [id number] 50mg Take 1 [facility] 50 mg 6-28 11-21 tablet by [facility] of tablet 00:00: 00:00 mouth at [place] 00 :00 bedtime. Medical May cut Branch tablet in half. traZODone 2021-0 2021- No [id number] 50mg Take 1 [facility] 50 mg 6-28 11-21 tablet by [facility] of tablet 00:00: 00:00 mouth at [place] 00 :00 bedtime. Medical May cut Branch tablet in half. traZODone 2021-0 2021- No [id number] 50mg Take 1 [facility] 50 mg 6-28 11-21 tablet by [facility] of tablet 00:00: 00:00 mouth at [place] 00 :00 bedtime. Medical May cut Branch tablet in half. traZODone 2021-0 2021- No [id number] 50mg Take 1 [facility] 50 mg 6-28 11-21 tablet by [facility] of tablet 00:00: 00:00 mouth at [place] 00 :00 bedtime. Medical May cut Branch tablet in half. traZODone 2021- No [id number] 50mg Take 1 [facility] 50 mg 6-28 -21 tablet by [facility] of tablet 00:00: 00:00 mouth at [place] 00 :00 bedtime. Medical May cut Branch tablet in half. clonazePAM 2021- No [id number] Take no [facility] 1 mg tablet 6-25 more than it y of 00:00: 00:00 1 mg twice [place] 00 :00 daily as Medical needed for Branch anxiety vitamin Yes [id number] 1000ug Take 1 [facility] nivers B-12 1,000 4-11 tablet by [facility] of mcg tablet 00:00: mouth [place] 00 daily. Medical Branch cyanocobala Yes [id number] 1000ug 1 mL by [facility] min 1,000 4-11 [facility] of mcg/mL 00:00: lar route [place] injection 00 weekly. Medical Branch vitamin Yes [id number] 1000ug Take 1 [facility] B-12 1,000 4-11 tablet by [facility] of mcg tablet 00:00: mouth [place] 00 daily. Medical Branch cyanocobala Yes [id number] 1000ug 1 mL by [facility] min 1,000 4-11 [facility] of mcg/mL 00:00: lar route [place] injection 00 weekly. Medical Branch vitamin 0 Yes [id number] 1000ug Take 1 [facility] n[facility] B-12 1,000 4-11 tablet by [facility] of mcg tablet 00:00: mouth [place] 00 daily. Medical Branch cyanocobala Yes [id number] 1000ug 1 mL by [facility] min 1,000 4-11 [facility] of mcg/mL 00:00: lar route [place] injection 00 weekly. Medical Branch vitamin Yes [id number] 1000ug Take 1 [facility] B-12 1,000 4-11 tablet by [facility] of mcg tablet 00:00: mouth [place] 00 daily. Medical Branch cyanocobala Yes [id number] 1000ug 1 mL by [facility] min 1,000 4-11 [facility] of mcg/mL 00:00: lar route [place] injection 00 weekly. Medical Branch vitamin 2021-0 Yes [id number] 1000ug Take 1 [facility] n[facility] B-12 1,000 4-11 tablet by [facility] of mcg tablet 00:00: mouth [place] 00 daily. Medical Branch cyanocobala 2021-0 Yes [id number] 1000ug 1 mL by [facility] min 1,000 4-11 [facility] of mcg/mL 00:00: lar route [place] injection 00 weekly. Medical Branch vitamin 2021-0 Yes [id number] 1000ug Take 1 [facility] n[facility] B-12 1,000 4-11 tablet by [facility] of mcg tablet 00:00: mouth [place] 00 daily. Medical Branch cyanocobala 2021-0 Yes [id number] 1000ug 1 mL by [facility] min 1,000 4-11 [facility] of mcg/mL 00:00: lar route [place] injection 00 weekly. Medical Branch vitamin 2021-0 Yes [id number] 1000ug Take 1 [facility] n[facility] B-12 1,000 4-11 tablet by [facility] of mcg tablet 00:00: mouth [place] 00 daily. Medical Branch cyanocobala 2021-0 Yes [id number] 1000ug 1 mL by [facility] min 1,000 4-11 [facility] of mcg/mL 00:00: lar route [place] injection 00 weekly. Medical Branch vitamin 2021-0 Yes [id number] 1000ug Take 1 [facility] B-12 1,000 4-11 tablet by [facility] of mcg tablet 00:00: mouth [place] 00 daily. Medical Branch cyanocobala 2021-0 Yes [id number] 1000ug 1 mL by [facility] min 1,000 4-11 [facility] of mcg/mL 00:00: lar route [place] injection 00 weekly. Medical Branch vitamin 2021-0 Yes [id number] 1000ug Take 1 [facility] n[facility] B-12 1,000 4-11 tablet by [facility] of mcg tablet 00:00: mouth [place] 00 daily. Medical Branch cyanocobala 2021-0 Yes [id number] 1000ug 1 mL by [facility] min 1,000 4-11 [facility] of mcg/mL 00:00: lar route [place] injection 00 weekly. Medical Branch vitamin 2021-0 Yes [id number] 1000ug Take 1 [facility] n[facility] B-12 1,000 4-11 tablet by [facility] of mcg tablet 00:00: mouth [place] 00 daily. Medical Branch cyanocobala 2021-0 Yes [id number] 1000ug 1 mL by [facility] min 1,000 4-11 [facility] of mcg/mL 00:00: lar route [place] injection 00 weekly. Medical Branch vitamin 2021-0 Yes [id number] 1000ug Take 1 [facility] n[facility] B-12 1,000 4-11 tablet by [facility] of mcg tablet 00:00: mouth [place] 00 daily. Medical Branch cyanocobala 2021-0 Yes [id number] 1000ug 1 mL by [facility] min 1,000 4-11 [facility] of mcg/mL 00:00: lar route [place] injection 00 weekly. Medical Branch vitamin 2021-0 Yes [id number] 1000ug Take 1 [facility] n[facility] B-12 1,000 4-11 tablet by [facility] of mcg tablet 00:00: mouth [place] 00 daily. Medical Branch cyanocobala 2021-0 Yes [id number] 1000ug 1 mL by [facility] min 1,000 4-11 [facility] of mcg/mL 00:00: lar route [place] injection 00 weekly. Medical Branch vitamin 2021-0 Yes [id number] 1000ug Take 1 [facility] n[facility] B-12 1,000 4-11 tablet by it[facility] of mcg tablet 00:00: mouth [place] 00 daily. Medical Branch cyanocobala 2021-0 Yes [id number] 1000ug 1 mL by [facility] min 1,000 4-11 [facility] of mcg/mL 00:00: lar route [place] injection 00 weekly. Medical Branch vitamin 2021-0 Yes [id number] 1000ug Take 1 [facility] n[facility] B-12 1,000 4-11 tablet by it[facility] of mcg tablet 00:00: mouth [place] 00 daily. Medical Branch cyanocobala 2021-0 Yes [id number] 1000ug 1 mL by [facility] min 1,000 4-11 [facility] of mcg/mL 00:00: lar route [place] injection 00 weekly. [facility] vitamin 2021-0 Yes [id number] 1000ug Take 1 U nivers B-12 1,000 4-11 tablet by ity of mcg tablet 00:00: mouth [place] 00 daily. [facility] cyanocobala 2021-0 Yes [id number] 1000ug 1 mL by [facility] min 1,000 4-11 [facility] of mcg/mL 00:00: lar route [place] injection 00 weekly. Medical Branch vitamin 2021-0 Yes [id number] 1000ug Take 1 [facility] nivers B-12 1,000 4-11 tablet by ity of mcg tablet 00:00: mouth [place] 00 daily. Medical Branch cyanocobala 2021-0 Yes [id number] 1000ug 1 mL by [facility] min 1,000 4-11 [facility] of mcg/mL 00:00: lar route [place] injection 00 weekly. Medical Branch vitamin 2021-0 Yes [id number] 1000ug Take 1 [facility] n[facility] B-12 1,000 4-11 tablet by ity of mcg tablet 00:00: mouth [place] 00 daily. Medical Branch cyanocobala 2021-0 Yes [id number] 1000ug 1 mL by [facility] min 1,000 4-11 [facility] of mcg/mL 00:00: lar route [place] injection 00 weekly. Medical Branch vitamin 2021-0 Yes [id number] 1000ug Take 1 [facility] nivers B-12 1,000 4-11 tablet by ity of mcg tablet 00:00: mouth [place] 00 daily. Medical Branch cyanocobala 2021-0 Yes [id number] 1000ug 1 mL by [facility] min 1,000 4-11 [facility] of mcg/mL 00:00: lar route [place] injection 00 weekly. Medical Branch vitamin 2021-0 Yes [id number] 1000ug Take 1 [facility] nivers B-12 1,000 4-11 tablet by ity of mcg tablet 00:00: mouth [place] 00 daily. Medical Branch cyanocobala 2021-0 Yes [id number] 1000ug 1 mL by [facility] min 1,000 4-11 [facility] of mcg/mL 00:00: lar route [place] injection 00 weekly. Medical Branch vitamin 2021-0 Yes [id number] 1000ug Take 1 [facility] nivers B-12 1,000 4-11 tablet by ity of mcg tablet 00:00: mouth [place] 00 daily. [facility] cyanocobala 2021-0 Yes [id number] 1000ug 1 mL by [facility] min 1,000 4-11 [facility] of mcg/mL 00:00: lar route [place] injection 00 weekly. [facility] Branch vitamin 2021-0 Yes [id number] 1000ug Take 1 U nivers B-12 1,000 4-11 tablet by ity of mcg tablet 00:00: mouth [place] 00 daily. Medical Branch cyanocobala 2021-0 Yes [id number] 1000ug 1 mL by [facility] min 1,000 4-11 [facility] of mcg/mL 00:00: lar route [place] injection 00 weekly. Medical Branch vitamin 2021-0 Yes [id number] 1000ug Take 1 U nivers B-12 1,000 4-11 tablet by ity of mcg tablet 00:00: mouth [place] 00 daily. Medical Branch cyanocobala 0 Yes [id number] 1000ug 1 mL by [facility] min 1,000 4-11 [facility]y of mcg/mL 00:00: lar route [place] injection 00 weekly. Medical Branch vitamin 2021-0 Yes [id number] 1000ug Take 1 U nivers B-12 1,000 4-11 tablet by ity of mcg tablet 00:00: mouth [place] 00 daily. [facility] cyanocobala 0 Yes [id number] 1000ug 1 mL by [facility] min 1,000 4-11 Intramuscu ity of mcg/mL 00:00: lar route [place] injection 00 weekly. [facility] losartan 0 Yes 20mg Take 20 mg [facility] vers potassium 4-05 by mouth. ity o f (LOSARTAN 09:24: [place] ORAL) [address] [place] [address] FUROSEMIDE 0 Yes 40mg Take 40 mg [facility] nivers ORAL 4-05 by mouth ity of 09:24: daily. [address] losartan 0 Yes 20mg Take 20 mg [facility] vers potassium 4-05 by mouth. ity o f (LOSARTAN 09:24: [place] ORAL) [address] [place] [address] FUROSEMIDE 2021-0 Yes 40mg Take 40 mg [facility] nivers ORAL 4-05 by mouth ity of 09:24: daily. [address] losartan 0 Yes 20mg Take 20 mg [facility] vers potassium 4-05 by mouth. ity o f (LOSARTAN 09:24: [place] ORAL) [address] [place] [address] FUROSEMIDE 2021-0 Yes 40mg Take 40 mg U nivers ORAL 4-05 by mouth ity of 09:24: daily. [address] losartan 2021-0 Yes 20mg Take 20 mg [facility] vers potassium 4-05 by mouth. ity o f (LOSARTAN 09:24: [place] ORAL) [address] [place] [address] FUROSEMIDE 0 Yes 40mg Take 40 mg U nivers ORAL 4-05 by mouth ity of 09:24: daily. [address] losartan 2021-0 Yes 20mg Take 20 mg [facility] vers potassium 4-05 by mouth. ity o f (LOSARTAN 09:24: [place] ORAL) [address] [place] [address] FUROSEMIDE 0 Yes 40mg Take 40 mg U nivers ORAL 4-05 by mouth ity of 09:24: daily. [address] losartan 2021-0 Yes 20mg Take 20 mg [facility] vers potassium 4-05 by mouth. ity o f (LOSARTAN 09:24: [place] ORAL) [address] [place] [address] FUROSEMIDE 0 Yes 40mg Take 40 mg U nivers ORAL 4-05 by mouth ity of 09:24: daily. [address] losartan 0 Yes 20mg Take 20 mg [facility] vers potassium 4-05 by mouth. ity o f (LOSARTAN 09:24: [place] ORAL) [address] [place] [address] FUROSEMIDE 0 Yes 40mg Take 40 mg U nivers ORAL 4-05 by mouth ity of 09:24: daily. [address] losartan 0 Yes 20mg Take 20 mg [facility] vers potassium 4-05 by mouth. ity o f (LOSARTAN 09:24: [place] ORAL) [address] [place] [address] FUROSEMIDE 0 Yes 40mg Take 40 mg U nivers ORAL 4-05 by mouth ity of 09:24: daily. [address] losartan 0 Yes 20mg Take 20 mg [facility] vers potassium 4-05 by mouth. ity o f (LOSARTAN 09:24: [place] ORAL) [address] [place] [address] FUROSEMIDE 0 Yes 40mg Take 40 mg [facility] nivers ORAL 4-05 by mouth ity of 09:24: daily. [address] losartan 2021-0 Yes 20mg Take 20 mg [facility] vers potassium 4-05 by mouth. ity o f (LOSARTAN 09:24: [place] ORAL) [address] [place] [address] FUROSEMIDE 2021-0 Yes 40mg Take 40 mg [facility] nivers ORAL 4-05 by mouth ity of 09:24: daily. [address] losartan 2021-0 Yes 20mg Take 20 mg [facility] vers potassium 4-05 by mouth. ity o f (LOSARTAN 09:24: [place] ORAL) [address] [place] [address] FUROSEMIDE 2021-0 Yes 40mg Take 40 mg [facility] nivers ORAL 4-05 by mouth ity of 09:24: daily. [address] losartan 2021-0 Yes 20mg Take 20 mg [facility] vers potassium 4-05 by mouth. ity o f (LOSARTAN 09:24: [place] ORAL) [address] [place] [address] FUROSEMIDE 2021-0 Yes 40mg Take 40 mg [facility] nivers ORAL 4-05 by mouth ity of 09:24: daily. [address] losartan 2021-0 Yes 20mg Take 20 mg [facility] vers potassium 4-05 by mouth. ity o f (LOSARTAN 09:24: [place] ORAL) [address] [place] [address] FUROSEMIDE 2021-0 Yes 40mg Take 40 mg [facility] nivers ORAL 4-05 by mouth ity of 09:24: daily. [address] losartan 2021-0 Yes 20mg Take 20 mg [facility] vers potassium 4-05 by mouth. ity o f (LOSARTAN 09:24: [place] ORAL) [address] [place] [address] FUROSEMIDE 2021-0 Yes 40mg Take 40 mg [facility] nivers ORAL 4-05 by mouth ity of 09:24: daily. [address] losartan 2021-0 Yes 20mg Take 20 mg [facility] vers potassium 4-05 by mouth. ity o f (LOSARTAN 09:24: [place] ORAL) [address] [place] [address] FUROSEMIDE 2021-0 Yes 40mg Take 40 mg [facility] nivers ORAL 4-05 by mouth ity of 09:24: daily. [address] losartan 2021-0 Yes 20mg Take 20 mg [facility] vers potassium 4-05 by mouth. ity o f (LOSARTAN 09:24: [place] ORAL) [address] [place] [address] FUROSEMIDE 2021-0 Yes 40mg Take 40 mg [facility] nivers ORAL 4-05 by mouth ity of 09:24: daily. [address] losartan 2021-0 Yes 20mg Take 20 mg [facility] vers potassium 4-05 by mouth. ity o f (LOSARTAN 09:24: [place] ORAL) [address] [place] [address] FUROSEMIDE 2021-0 Yes 40mg Take 40 mg [facility] nivers ORAL 4-05 by mouth ity of 09:24: daily. [address] losartan 2021-0 Yes 20mg Take 20 mg [facility] vers potassium 4-05 by mouth. ity o f (LOSARTAN 09:24: [place] ORAL) [address] [place] [address] FUROSEMIDE 2021-0 Yes 40mg Take 40 mg [facility] nivers ORAL 4-05 by mouth ity of 09:24: daily. [address] losartan 2021-0 Yes 20mg Take 20 mg [facility] vers potassium 4-05 by mouth. ity o f (LOSARTAN 09:24: [place] ORAL) [address] [place] [address] Branch FUROSEMIDE 2021-0 Yes 40mg Take 40 mg U nivers ORAL 4-05 by mouth ity of 09:24: daily. [address] losartan 2021-0 Yes 20mg Take 20 mg [facility] vers potassium 4-05 by mouth. ity o f (LOSARTAN 09:24: [place] ORAL) [address] [place] [address] Branch FUROSEMIDE 2021-0 Yes 40mg Take 40 mg U nivers ORAL 4-05 by mouth ity of 09:24: daily. [address] Branch losartan 2021-0 Yes 20mg Take 20 mg [facility] vers potassium 4-05 by mouth. ity o f (LOSARTAN 09:24: [place] ORAL) [address] [place] [address] FUROSEMIDE 2021-0 Yes 40mg Take 40 mg [facility] nivers ORAL 4-05 by mouth ity of 09:24: daily. [address] losartan 2021-0 Yes 20mg Take 20 mg [facility] vers potassium 4-05 by mouth. ity o f (LOSARTAN 09:24: [place] ORAL) Medical Branch FUROSEMIDE 0 Yes 40mg Take 40 mg [facility] nivers ORAL 4-05 by mouth ity of 09:24: daily. [address] losartan 2021-0 Yes 20mg Take 20 mg [facility] vers potassium 4-05 by mouth. ity o f (LOSARTAN 09:24: [place] ORAL) [address] [place] [address] Branch FUROSEMIDE 2021-0 Yes 40mg Take 40 mg U nivers ORAL 4-05 by mouth ity of 09:24: daily. [address] Branch gabapentin 2021-0 Yes [id number] 300mg Take 1 [facility] 300 mg 4-05 capsule by ity of capsule 00:00: mouth 3 [place] 00 (three) Medical times Branch daily. rizatriptan 2021-0 Yes [id number] 5mg Take 1 [facility] 5 mg 4-05 tablet by ity of disintegrat 00:00: mouth [place] ing tablet 00 needed for Med ical Migraine Branch (Take 5mg at the beginning of the headache can repeat 2h after if headaches persists). May repeat in 2 hours if needed magnesium 2021-0 Yes [id number] 400mg Take 2 [facility] gluconate 4-05 tablets by ity of 200 mg 00:00: mouth 2 [place] tablet 00 (two) Medical times Branch daily. gabapentin 2022-0 Yes [id number] 300mg Take 1 [facility] 300 mg 4-05 capsule by ity of capsule 00:00: mouth 3 [place] (three) Medical times Branch daily. rizatriptan 2022-0 Yes [id number] 5mg Take 1 [facility] 5 mg 4-05 tablet by [facility]y of disintegrat 00:00: mouth [place] ing tablet 00 needed for Med ical Migraine Branch (Take 5mg at the beginning of the headache can repeat 2h after if headaches persists). May repeat in 2 hours if needed magnesium 2022-0 Yes [id number] 400mg Take 2 [facility] gluconate 4-05 tablets by ity of 200 mg 00:00: mouth 2 [place] tablet 00 (two) Medical times Branch daily. gabapentin 2022-0 Yes [id number] 300mg Take 1 [facility] 300 mg 4-05 capsule by ity of capsule 00:00: mouth 3 [place] (three) Medical times Branch daily. rizatriptan 2022-0 Yes [id number] 5mg Take 1 [facility] 5 mg 4-05 tablet by ity of disintegrat 00:00: mouth as [place] ing tablet 00 needed for Med ical Migraine Branch (Take 5mg at the beginning of the headache can repeat 2h after if headaches persists). May repeat in 2 hours if needed magnesium 2022-0 Yes [id number] 400mg Take 2 [facility] gluconate 4-05 tablets by ity of 200 mg 00:00: mouth 2 [place] tablet 00 (two) Medical times Branch daily. gabapentin 2022-0 Yes [id number] 300mg Take 1 [facility] 300 mg 4-05 capsule by ity of capsule 00:00: mouth 3 [place] (three) Medical times Branch daily. rizatriptan 2022-0 Yes [id number] 5mg Take 1 [facility] 5 mg 4-05 tablet by ity of disintegrat 00:00: mouth [place] ing tablet 00 needed for Med ical Migraine Branch (Take 5mg at the beginning of the headache can repeat 2h after if headaches persists). May repeat in 2 hours if needed magnesium 2022-0 Yes [id number] 400mg Take 2 [facility] gluconate 4-05 tablets by ity of 200 mg 00:00: mouth 2 [place] tablet 00 (two) Medical times Branch daily. gabapentin 2022-0 Yes [id number] 300mg Take 1 [facility] 300 mg 4-05 capsule by ity of capsule 00:00: mouth 3 [place] 00 (three) Medical times Branch daily. rizatriptan 2022-0 Yes [id number] 5mg Take 1 [facility] 5 mg 4-05 tablet by ity of disintegrat 00:00: mouth [place] ing tablet 00 needed for Med ical Migraine Branch (Take 5mg at the beginning of the headache can repeat 2h after if headaches persists). May repeat in 2 hours if needed magnesium 2022-0 Yes [id number] 400mg Take 2 [facility] gluconate 4-05 tablets by ity of 200 mg 00:00: mouth 2 [place] tablet 00 (two) Medical times Branch daily. gabapentin 2022-0 Yes [id number] 300mg Take 1 [facility] 300 mg 4-05 capsule by ity of capsule 00:00: mouth 3 [place] 00 (three) Medical times Branch daily. rizatriptan 2022-0 Yes [id number] 5mg Take 1 [facility] 5 mg 4-05 tablet by ity of disintegrat 00:00: mouth [place] ing tablet 00 needed for Med ical Migraine Branch (Take 5mg at the beginning of the headache can repeat 2h after if headaches persists). May repeat in 2 hours if needed magnesium 2022-0 Yes [id number] 400mg Take 2 [facility] gluconate 4-05 tablets by ity of 200 mg 00:00: mouth 2 [place] tablet 00 (two) Medical times Branch daily. gabapentin 2022-0 Yes [id number] 300mg Take 1 [facility] 300 mg 4-05 capsule by ity of capsule 00:00: mouth 3 [place] 00 (three) Medical times Branch daily. rizatriptan 2022-0 Yes [id number] 5mg Take 1 [facility] 5 mg 4-05 tablet by ity of disintegrat 00:00: mouth [place] ing tablet 00 needed for Med ical Migraine Branch (Take 5mg at the beginning of the headache can repeat 2h after if headaches persists). May repeat in 2 hours if needed magnesium 2022-0 Yes [id number] 400mg Take 2 [facility] gluconate 4-05 tablets by ity of 200 mg 00:00: mouth 2 [place] tablet 00 (two) Medical times Branch daily. gabapentin 2022-0 Yes [id number] 300mg Take 1 [facility] 300 mg 4-05 capsule by ity of capsule 00:00: mouth 3 [place] (three) Medical times Branch daily. rizatriptan 2022-0 Yes [id number] 5mg Take 1 [facility] 5 mg 4-05 tablet by ity of disintegrat 00:00: mouth as [place] ing tablet 00 needed for Med ical Migraine Branch (Take 5mg at the beginning of the headache can repeat 2h after if headaches persists). May repeat in 2 hours if needed magnesium 2022-0 Yes [id number] 400mg Take 2 [facility] gluconate 4-05 tablets by ity of 200 mg 00:00: mouth 2 [place] tablet 00 (two) Medical times Branch daily. gabapentin 2022-0 Yes [id number] 300mg Take 1 [facility] 300 mg 4-05 capsule by ity of capsule 00:00: mouth 3 [place] (three) Medical times Branch daily. rizatriptan 2022-0 Yes [id number] 5mg Take 1 [facility] 5 mg 4-05 tablet by ity of disintegrat 00:00: mouth as [place] ing tablet 00 needed for Med ical Migraine Branch (Take 5mg at the beginning of the headache can repeat 2h after if headaches persists). May repeat in 2 hours if needed magnesium 2022-0 Yes [id number] 400mg Take 2 [facility] gluconate 4-05 tablets by ity of 200 mg 00:00: mouth 2 [place] tablet 00 (two) Medical times Branch daily. gabapentin 2022-0 Yes [id number] 300mg Take 1 [facility] 300 mg 4-05 capsule by ity of capsule 00:00: mouth 3 [place] (three) Medical times Branch daily. rizatriptan 2022-0 Yes [id number] 5mg Take 1 [facility] 5 mg 4-05 tablet by ity of disintegrat 00:00: mouth as [place] ing tablet 00 needed for Med ical Migraine Branch (Take 5mg at the beginning of the headache can repeat 2h after if headaches persists). May repeat in 2 hours if needed magnesium 2022-0 Yes [id number] 400mg Take 2 [facility] gluconate 4-05 tablets by ity of 200 mg 00:00: mouth 2 [place] tablet 00 (two) Medical times Branch daily. gabapentin 2022-0 Yes [id number] 300mg Take 1 [facility] 300 mg 4-05 capsule by ity of capsule 00:00: mouth 3 [place] (three) Medical times Branch daily. rizatriptan 2022-0 Yes [id number] 5mg Take 1 [facility] 5 mg 4-05 tablet by ity of disintegrat 00:00: mouth as [place] ing tablet 00 needed for Med ical Migraine Branch (Take 5mg at the beginning of the headache can repeat 2h after if headaches persists). May repeat in 2 hours if needed magnesium 2022-0 Yes [id number] 400mg Take 2 [facility] gluconate 4-05 tablets by ity of 200 mg 00:00: mouth 2 [place] tablet 00 (two) Medical times Branch daily. gabapentin 2022-0 Yes [id number] 300mg Take 1 [facility] 300 mg 4-05 capsule by ity of capsule 00:00: mouth 3 [place] 00 (three) Medical times Branch daily. rizatriptan 2022-0 Yes [id number] 5mg Take 1 [facility] 5 mg 4-05 tablet by ity of disintegrat 00:00: mouth as [place] ing tablet 00 needed for Med ical Migraine Branch (Take 5mg at the beginning of the headache can repeat 2h after if headaches persists). May repeat in 2 hours if needed magnesium 2022-0 Yes [id number] 400mg Take 2 [facility] gluconate 4-05 tablets by ity of 200 mg 00:00: mouth 2 [place] tablet 00 (two) Medical times Branch daily. gabapentin 2022-0 Yes [id number] 300mg Take 1 [facility] 300 mg 4-05 capsule by ity of capsule 00:00: mouth 3 [place] 00 (three) Medical times Branch daily. rizatriptan 2022-0 Yes [id number] 5mg Take 1 [facility] 5 mg 4-05 tablet by ity of disintegrat 00:00: mouth as [place] ing tablet 00 needed for Med ical Migraine Branch (Take 5mg at the beginning of the headache can repeat 2h after if headaches persists). May repeat in 2 hours if needed magnesium 2022-0 Yes [id number] 400mg Take 2 [facility] gluconate 4-05 tablets by ity of 200 mg 00:00: mouth 2 [place] tablet 00 (two) Medical times Branch daily. gabapentin 2022-0 Yes [id number] 300mg Take 1 [facility] 300 mg 4-05 capsule by ity of capsule 00:00: mouth 3 [place] 00 (three) Medical times Branch daily. rizatriptan 2022-0 Yes [id number] 5mg Take 1 [facility] 5 mg 4-05 tablet by ity of disintegrat 00:00: mouth as [place] ing tablet 00 needed for Med ical Migraine Branch (Take 5mg at the beginning of the headache can repeat 2h after if headaches persists). May repeat in 2 hours if needed magnesium 2022-0 Yes [id number] 400mg Take 2 [facility] gluconate 4-05 tablets by ity of 200 mg 00:00: mouth 2 [place] tablet 00 (two) Medical times Branch daily. gabapentin 2022-0 Yes [id number] 300mg Take 1 [facility] 300 mg 4-05 capsule by ity of capsule 00:00: mouth 3 [place] 00 (three) Medical times Branch daily. rizatriptan 2022-0 Yes [id number] 5mg Take 1 [facility] 5 mg 4-05 tablet by ity of disintegrat 00:00: mouth as [place] ing tablet 00 needed for Med ical Migraine Branch (Take 5mg at the beginning of the headache can repeat 2h after if headaches persists). May repeat in 2 hours if needed magnesium 2022-0 Yes [id number] 400mg Take 2 [facility] gluconate 4-05 tablets by ity of 200 mg 00:00: mouth 2 [place] tablet 00 (two) Medical times Branch daily. gabapentin 2022-0 Yes [id number] 300mg Take 1 [facility] 300 mg 4-05 capsule by ity of capsule 00:00: mouth 3 [place] 00 (three) Medical times Branch daily. rizatriptan 2022-0 Yes [id number] 5mg Take 1 [facility] 5 mg 4-05 tablet by ity of disintegrat 00:00: mouth as [place] ing tablet 00 needed for Med ical Migraine Branch (Take 5mg at the beginning of the headache can repeat 2h after if headaches persists). May repeat in 2 hours if needed magnesium 2022-0 Yes [id number] 400mg Take 2 [facility] gluconate 4-05 tablets by ity of 200 mg 00:00: mouth 2 [place] tablet 00 (two) Medical times Branch daily. gabapentin 2022-0 Yes [id number] 300mg Take 1 [facility] 300 mg 4-05 capsule by ity of capsule 00:00: mouth 3 [place] 00 (three) Medical times Branch daily. rizatriptan 2022-0 Yes [id number] 5mg Take 1 [facility] 5 mg 4-05 tablet by ity of disintegrat 00:00: mouth as [place] ing tablet 00 needed for Med ical Migraine Branch (Take 5mg at the beginning of the headache can repeat 2h after if headaches persists). May repeat in 2 hours if needed magnesium 2022-0 Yes [id number] 400mg Take 2 [facility] gluconate 4-05 tablets by ity of 200 mg 00:00: mouth 2 [place] tablet 00 (two) Medical times Branch daily. gabapentin 2022-0 Yes [id number] 300mg Take 1 [facility] 300 mg 4-05 capsule by ity of capsule 00:00: mouth 3 [place] 00 (three) Medical times Branch daily. rizatriptan 2022-0 Yes [id number] 5mg Take 1 [facility] 5 mg 4-05 tablet by ity of disintegrat 00:00: mouth as [place] ing tablet 00 needed for Med ical Migraine Branch (Take 5mg at the beginning of the headache can repeat 2h after if headaches persists). May repeat in 2 hours if needed magnesium 2022-0 Yes [id number] 400mg Take 2 [facility] gluconate 4-05 tablets by ity of 200 mg 00:00: mouth 2 [place] tablet 00 (two) Medical times Branch daily. gabapentin 2022-0 Yes [id number] 300mg Take 1 [facility] 300 mg 4-05 capsule by ity of capsule 00:00: mouth 3 [place] (three) Medical times Branch daily. rizatriptan 2022-0 Yes [id number] 5mg Take 1 [facility] 5 mg 4-05 tablet by ity of disintegrat 00:00: mouth as [place] ing tablet 00 needed for Med ical Migraine Branch (Take 5mg at the beginning of the headache can repeat 2h after if headaches persists). May repeat in 2 hours if needed magnesium 2022-0 Yes [id number] 400mg Take 2 [facility] gluconate 4-05 tablets by ity of 200 mg 00:00: mouth 2 [place] tablet 00 (two) Medical times Branch daily. gabapentin 2022-0 Yes [id number] 300mg Take 1 [facility] 300 mg 4-05 capsule by ity of capsule 00:00: mouth 3 [place] 00 (three) Medical times Branch daily. rizatriptan 2022-0 Yes [id number] 5mg Take 1 [facility] 5 mg 4-05 tablet by ity of disintegrat 00:00: mouth as [place] ing tablet 00 needed for Med ical Migraine Branch (Take 5mg at the beginning of the headache can repeat 2h after if headaches persists). May repeat in 2 hours if needed magnesium 2022-0 Yes [id number] 400mg Take 2 [facility] gluconate 4-05 tablets by ity of 200 mg 00:00: mouth 2 [place] tablet 00 (two) Medical times Branch daily. gabapentin 2022-0 Yes [id number] 300mg Take 1 [facility] 300 mg 4-05 capsule by ity of capsule 00:00: mouth 3 [place] 00 (three) Medical times Branch daily. rizatriptan 2022-0 Yes [id number] 5mg Take 1 [facility] 5 mg 4-05 tablet by ity of disintegrat 00:00: mouth as [place] ing tablet 00 needed for Med ical Migraine Branch (Take 5mg at the beginning of the headache can repeat 2h after if headaches persists). May repeat in 2 hours if needed magnesium 2022-0 Yes [id number] 400mg Take 2 [facility] gluconate 4-05 tablets by ity of 200 mg 00:00: mouth 2 [place] tablet 00 (two) Medical times Branch daily. gabapentin 2022-0 Yes [id number] 300mg Take 1 [facility] 300 mg 4-05 capsule by ity of capsule 00:00: mouth 3 [place] 00 (three) Medical times Branch daily. rizatriptan 2022-0 Yes [id number] 5mg Take 1 [facility] 5 mg 4-05 tablet by ity of disintegrat 00:00: mouth as [place] ing tablet 00 needed for Med ical Migraine Branch (Take 5mg at the beginning of the headache can repeat 2h after if headaches persists). May repeat in 2 hours if needed magnesium 2022-0 Yes [id number] 400mg Take 2 [facility] gluconate 4-05 tablets by ity of 200 mg 00:00: mouth 2 [place] tablet 00 (two) Medical times Branch daily. gabapentin 2022-0 Yes [id number] 300mg Take 1 [facility] 300 mg 4-05 capsule by ity of capsule 00:00: mouth 3 [place] 00 (three) Medical times Branch daily. rizatriptan 2022-0 Yes [id number] 5mg Take 1 [facility] 5 mg 4-05 tablet by ity of disintegrat 00:00: mouth as [place] ing tablet 00 needed for Med ical Migraine Branch (Take 5mg at the beginning of the headache can repeat 2h after if headaches persists). May repeat in 2 hours if needed magnesium 2021-0 Yes [id number] 400mg Take 2 [facility] gluconate 4-05 tablets by ity of 200 mg 00:00: mouth 2 [place] tablet 00 (two) Medical times Branch daily. ondansetron 2020-0 Yes [id number] 4mg Take 1 [facility] (ZOFRAN 7-22 tablet by ity of ODT) 4 mg 00:00: mouth [place] disintegrat 00 every 8 Medic al ing tablet (eight) Branch hours as needed for Nausea and Vomiting (N/V). ondansetron 2020-0 Yes [id number] 4mg Take 1 [facility] (ZOFRAN 7-22 tablet by ity of ODT) 4 mg 00:00: mouth [place] disintegrat 00 every 8 Medic al ing tablet (eight) Branch hours as needed for Nausea and Vomiting (N/V). ondansetron 2020-0 Yes [id number] 4mg Take 1 [facility] (ZOFRAN 7-22 tablet by ity of ODT) 4 mg 00:00: mouth [place] disintegrat 00 every 8 Medic al ing tablet (eight) Branch hours as needed for Nausea and Vomiting (N/V). ondansetron 2020-0 Yes [id number] 4mg Take 1 [facility] (ZOFRAN 7-22 tablet by ity of ODT) 4 mg 00:00: mouth [place] disintegrat 00 every 8 Medic al ing tablet (eight) Branch hours as needed for Nausea and Vomiting (N/V). ondansetron 2020-0 Yes [id number] 4mg Take 1 [facility] (ZOFRAN 7-22 tablet by ity of ODT) 4 mg 00:00: mouth [place] disintegrat 00 every 8 Medic al ing tablet (eight) Branch hours as needed for Nausea and Vomiting (N/V). ondansetron 2020-0 Yes [id number] 4mg Take 1 [facility] (ZOFRAN 7-22 tablet by ity of ODT) 4 mg 00:00: mouth [place] disintegrat 00 every 8 Medic al ing tablet (eight) Branch hours as needed for Nausea and Vomiting (N/V). ondansetron 2020-0 Yes [id number] 4mg Take 1 [facility] (ZOFRAN 7-22 tablet by ity of ODT) 4 mg 00:00: mouth [place] disintegrat 00 every 8 Medic al ing tablet (eight) Branch hours as needed for Nausea and Vomiting (N/V). ondansetron 2021-0 Yes [id number] 4mg Take 1 [facility] (ZOFRAN 7-22 tablet by ity of ODT) 4 mg 00:00: mouth [place] disintegrat 00 every 8 Medic al ing tablet (eight) Branch hours as needed for Nausea and Vomiting (N/V). ondansetron 2020-0 Yes [id number] 4mg Take 1 [facility] (ZOFRAN 7-22 tablet by ity of ODT) 4 mg 00:00: mouth [place] disintegrat 00 every 8 Medic al ing tablet (eight) Branch hours as needed for Nausea and Vomiting (N/V). ondansetron 2020-0 Yes [id number] 4mg Take 1 [facility] (ZOFRAN 7-22 tablet by ity of ODT) 4 mg 00:00: mouth [place] disintegrat 00 every 8 Medic al ing tablet (eight) Branch hours as needed for Nausea and Vomiting (N/V). ondansetron 2020-0 Yes [id number] 4mg Take 1 [facility] (ZOFRAN 7-22 tablet by ity of ODT) 4 mg 00:00: mouth [place] disintegrat 00 every 8 Medic al ing tablet (eight) Branch hours as needed for Nausea and Vomiting (N/V). ondansetron 2020-0 Yes [id number] 4mg Take 1 [facility] (ZOFRAN 7-22 tablet by ity of ODT) 4 mg 00:00: mouth [place] disintegrat 00 every 8 Medic al ing tablet (eight) Branch hours as needed for Nausea and Vomiting (N/V). ondansetron 2020-0 Yes [id number] 4mg Take 1 [facility] (ZOFRAN 7-22 tablet by ity of ODT) 4 mg 00:00: mouth [place] disintegrat 00 every 8 Medic al ing tablet (eight) Branch hours as needed for Nausea and Vomiting (N/V). ondansetron 2021-0 Yes [id number] 4mg Take 1 [facility] (ZOFRAN 7-22 tablet by ity of ODT) 4 mg 00:00: mouth [place] disintegrat 00 every 8 Medic al ing tablet (eight) Branch hours as needed for Nausea and Vomiting (N/V). ondansetron 2020-0 Yes [id number] 4mg Take 1 [facility] (ZOFRAN 7-22 tablet by ity of ODT) 4 mg 00:00: mouth [place] disintegrat 00 every 8 Medic al ing tablet (eight) Branch hours as needed for Nausea and Vomiting (N/V). ondansetron 2021-0 Yes [id number] 4mg Take 1 [facility] (ZOFRAN 7-22 tablet by ity of ODT) 4 mg 00:00: mouth [place] disintegrat 00 every 8 Medic al ing tablet (eight) Branch hours as needed for Nausea and Vomiting (N/V). ondansetron 2021-0 Yes [id number] 4mg Take 1 [facility] (ZOFRAN 7-22 tablet by ity of ODT) 4 mg 00:00: mouth [place] disintegrat 00 every 8 Medic al ing tablet (eight) Branch hours as needed for Nausea and Vomiting (N/V). ondansetron 1-0 Yes [id number] 4mg Take 1 [facility] (ZOFRAN 7-22 tablet by ity of ODT) 4 mg 00:00: mouth [place] disintegrat 00 every 8 Medic al ing tablet (eight) Branch hours as needed for Nausea and Vomiting (N/V). ondansetron 2020-0 Yes [id number] 4mg Take 1 [facility] (ZOFRAN 7-22 tablet by ity of ODT) 4 mg 00:00: mouth [place] disintegrat 00 every 8 Medic al ing tablet (eight) Branch hours as needed for Nausea and Vomiting (N/V). ondansetron 2021-0 Yes [id number] 4mg Take 1 [facility] (ZOFRAN 7-22 tablet by ity of ODT) 4 mg 00:00: mouth [place] disintegrat 00 every 8 Medic al ing tablet (eight) Branch hours as needed for Nausea and Vomiting (N/V). ondansetron 1-0 Yes [id number] 4mg Take 1 [facility] (ZOFRAN 7-22 tablet by ity of ODT) 4 mg 00:00: mouth [place] disintegrat 00 every 8 Medic al ing tablet (eight) Branch hours as needed for Nausea and Vomiting (N/V). ondansetron 2021-0 Yes [id number] 4mg Take 1 [facility] (ZOFRAN 7-22 tablet by ity of ODT) 4 mg 00:00: mouth [place] disintegrat 00 every 8 Medic al ing tablet (eight) Branch hours as needed for Nausea and Vomiting (N/V). ondansetron 2020-0 Yes [id number] 4mg Take 1 Univers (ZOFRAN 7-22 tablet by ity of ODT) 4 mg 00:00: mouth [place] disintegrat 00 every 8 Medic al ing tablet (eight) Branch hours as needed for Nausea and Vomiting (N/V). allopurinoL 2020-0 Yes 100mg Take 100 U nivers 100 mg 6-24 mg by ity of tablet 13:17: mouth [place] 52 daily. Medical Branch atorvastati 2020-0 Yes 10mg Take 10 mg Univers n 10 mg 6-24 by mouth ity of tablet 13:17: at [place] [address] bedtime. Medical Branch allopurinoL 2020-0 Yes 100mg Take 100 U nivers 100 mg 6-24 mg by ity of tablet 13:17: mouth [place] [address] daily. Medical Branch atorvastati 2020-0 Yes 10mg Take 10 mg Univers n 10 mg 6-24 by mouth ity of tablet 13:17: at [place] [address] bedtime. Medical Branch allopurinoL 2020-0 Yes 100mg Take 100 U nivers 100 mg 6-24 mg by ity of tablet 13:17: mouth [place] 52 daily. Medical Branch atorvastati 2020-0 Yes 10mg Take 10 mg Univers n 10 mg 6-24 by mouth ity of tablet 13:17: at [place] [address] bedtime. Medical Branch allopurinoL 2020-0 Yes 100mg Take 100 U nivers 100 mg 6-24 mg by ity of tablet 13:17: mouth [place] 52 daily. Medical Branch atorvastati 2020-0 Yes 10mg Take 10 mg Univers n 10 mg 6-24 by mouth ity of tablet 13:17: at [place] [address] bedtime. Medical Branch allopurinoL 2020-0 Yes 100mg Take 100 U nivers 100 mg 6-24 mg by ity of tablet 13:17: mouth [place] 52 daily. Medical Branch atorvastati 2020-0 Yes 10mg Take 10 mg Univers n 10 mg 6-24 by mouth ity of tablet 13:17: at [place] [address] bedtime. Medical Branch allopurinoL 2020-0 Yes 100mg Take 100 U nivers 100 mg 6-24 mg by ity of tablet 13:17: mouth [place] 52 daily. Medical Branch atorvastati 2020-0 Yes 10mg Take 10 mg Univers n 10 mg 6-24 by mouth ity of tablet 13:17: at [place] [address] bedtime. Medical Branch allopurinoL 2020-0 Yes 100mg Take 100 U nivers 100 mg 6-24 mg by ity of tablet 13:17: mouth [place] 52 daily. Medical Branch atorvastati 2020-0 Yes 10mg Take 10 mg Univers n 10 mg 6-24 by mouth ity of tablet 13:17: at [place] [address] bedtime. Medical Branch allopurinoL 2020-0 Yes 100mg Take 100 U nivers 100 mg 6-24 mg by ity of tablet 13:17: mouth [place] 52 daily. Medical Branch atorvastati 2020-0 Yes 10mg Take 10 mg Univers n 10 mg 6-24 by mouth ity of tablet 13:17: at [place] [address] bedtime. Medical Branch allopurinoL 2020-0 Yes 100mg Take 100 U nivers 100 mg 6-24 mg by ity of tablet 13:17: mouth [place] 52 daily. Medical Branch atorvastati 2020-0 Yes 10mg Take 10 mg Univers n 10 mg 6-24 by mouth ity of tablet 13:17: at [place] [address] bedtime. Medical Branch allopurinoL 2020-0 Yes 100mg Take 100 U nivers 100 mg 6-24 mg by ity of tablet 13:17: mouth [place] 52 daily. Medical Branch atorvastati 2020-0 Yes 10mg Take 10 mg Univers n 10 mg 6-24 by mouth ity of tablet 13:17: at [place] [address] bedtime. Medical Branch allopurinoL 2020-0 Yes 100mg Take 100 U nivers 100 mg 6-24 mg by ity of tablet 13:17: mouth [place] 52 daily. Medical Branch atorvastati 2020-0 Yes 10mg Take 10 mg Univers n 10 mg 6-24 by mouth ity of tablet 13:17: at [place] [address] bedtime. Medical Branch allopurinoL 2020-0 Yes 100mg Take 100 U nivers 100 mg 6-24 mg by ity of tablet 13:17: mouth [place] 52 daily. Medical Branch atorvastati 2020-0 Yes 10mg Take 10 mg Univers n 10 mg 6-24 by mouth ity of tablet 13:17: at [place] [address] bedtime. Medical Branch allopurinoL 2020-0 Yes 100mg Take 100 U nivers 100 mg 6-24 mg by ity of tablet 13:17: mouth [place] 52 daily. Medical Branch atorvastati 2020-0 Yes 10mg Take 10 mg Univers n 10 mg 6-24 by mouth ity of tablet 13:17: at [place] [address] bedtime. Medical Branch allopurinoL 2020-0 Yes 100mg Take 100 U nivers 100 mg 6-24 mg by ity of tablet 13:17: mouth [place] 52 daily. Medical Branch atorvastati 2020-0 Yes 10mg Take 10 mg Univers n 10 mg 6-24 by mouth ity of tablet 13:17: at [place] [address] bedtime. Medical Branch allopurinoL 2020-0 Yes 100mg Take 100 U nivers 100 mg 6-24 mg by ity of tablet 13:17: mouth [place] 52 daily. Medical Branch atorvastati 2020-0 Yes 10mg Take 10 mg Univers n 10 mg 6-24 by mouth ity of tablet 13:17: at [place] [address] bedtime. Medical Branch allopurinoL 2020-0 Yes 100mg Take 100 U nivers 100 mg 6-24 mg by ity of tablet 13:17: mouth [place] 52 daily. Medical Branch atorvastati 2020-0 Yes 10mg Take 10 mg Univers n 10 mg 6-24 by mouth ity of tablet 13:17: at [place] [address] bedtime. Medical Branch allopurinoL 2020-0 Yes 100mg Take 100 U nivers 100 mg 6-24 mg by ity of tablet 13:17: mouth [place] 52 daily. Medical Branch atorvastati 2020-0 Yes 10mg Take 10 mg Univers n 10 mg 6-24 by mouth ity of tablet 13:17: at [place] [address] bedtime. Medical Branch allopurinoL 2020-0 Yes 100mg Take 100 U nivers 100 mg 6-24 mg by ity of tablet 13:17: mouth [place] 52 daily. Medical Branch atorvastati 2020-0 Yes 10mg Take 10 mg Univers n 10 mg 6-24 by mouth ity of tablet 13:17: at [place] [address] bedtime. Medical Branch allopurinoL 2020-0 Yes 100mg Take 100 U nivers 100 mg 6-24 mg by ity of tablet 13:17: mouth [place] 52 daily. Medical Branch atorvastati 2020-0 Yes 10mg Take 10 mg Univers n 10 mg 6-24 by mouth ity of tablet 13:17: at [place] [address] bedtime. Medical Branch allopurinoL 2020-0 Yes 100mg Take 100 U nivers 100 mg 6-24 mg by ity of tablet 13:17: mouth [place] 52 daily. Medical Branch atorvastati 2020-0 Yes 10mg Take 10 mg Univers n 10 mg 6-24 by mouth ity of tablet 13:17: at [place] [address] bedtime. Medical Branch allopurinoL 2020-0 Yes 100mg Take 100 U nivers 100 mg 6-24 mg by ity of tablet 13:17: mouth [place] 52 daily. Medical Branch atorvastati 2020-0 Yes 10mg Take 10 mg Univers n 10 mg 6-24 by mouth ity of tablet 13:17: at [place] [address] bedtime. Medical Branch allopurinoL 2020-0 Yes 100mg Take 100 U nivers 100 mg 6-24 mg by ity of tablet 13:17: mouth [place] 52 daily. Medical Branch atorvastati 2020-0 Yes 10mg Take 10 mg Univers n 10 mg 6-24 by mouth ity of tablet 13:17: at [place] [address] bedtime. Medical Branch allopurinoL 2020-0 Yes 100mg Take 100 U nivers 100 mg 6-24 mg by ity of tablet 13:17: mouth [place] 52 daily. Medical Branch atorvastati 2020-0 Yes 10mg Take 10 mg Univers n 10 mg 6-24 by mouth ity of tablet 13:17: at [place] [address] bedtime. Medical Branch propranolol 2020-0 Yes 80mg [...] 2022-02-15 14:59:00 131 mm[Hg] Univer [facility] Diastolic blood 2022-02-15 14:59:00 70 mm[Hg] [facility] 2022-02-15 14:59:00 81 /min [facility]i ty [facility] [place] [facility] Respiratory rate 2022-02-15 14:59:00 18 /min Univ ersity [facility] [place] [facility] Body height 2022-02-15 14:59:00 167.6 cm [facility]i ty [facility] [place] [facility] Body weight 2022-02-15 14:59:00 102.967 kg [facility] [place] [facility] BMI 2022-02-15 14:59:00 36.64 kg/m2 Universi ty of [place] [facility] [place] Respiratory rate 2022-01-11 17:11:00 18 /min Univ ersity [facility] [place] [facility] Body height 2022-01-11 17:11:00 167.6 cm [facility] [place] [facility] Body weight 2022-01-11 17:11:00 100.699 kg [facility] [place] [facility] BMI 2022-01-11 17:11:00 35.83 kg/m2 Universi ty of [facility] Systolic blood 2021-08-24 14:24:00 133 mm[Hg] Univer [facility] of [facility] Diastolic blood 2021-08-24 14:24:00 73 mm[Hg] Unive rsity [facility] Heart rate 2021-08-24 14:24:00 69 /min Universi ty [facility] [place] [facility] Respiratory rate 2021-08-24 14:24:00 18 /min [facility] Body height 2021-08-24 14:24:00 167.6 cm [facility] Body weight 2021-08-24 14:24:00 100.245 kg [facility] BMI 2021-08-24 14:24:00 35.67 kg/m2 [facility] Oxygen saturation in 2021-06-07 15:30:00 96 /min University Arterial blood by [facility] Pulse oximetry [place] Body temperature 2021-06-07 14:20:30 37.44 [facility]a [facility] Procedures Procedure Date / Time Performed Performing Clinician Sourc e EXTERNAL PROVIDER 2022-02-21 06:01:00 Doctor Unassigned, No Univ ersity [facility] RECORDS Name Medical Branch EXTERNAL PROVIDER 2022-02-21 06:01:00 Doctor Unassigned, No Univ ersity [facility] RECORDS Name Medical Branch LITHIUM 2022-02-15 15:58:00 Angela Sage [facility] CONSENT/REFUSAL FOR 2022-01-11 17:10:16 Doctor Unassigned, No Un iversity of [place] DIAGNOSIS AND Name [facility] TREATMENT CONSENT/REFUSAL FOR 2022-01-11 17:10:16 Doctor Unassigned, No Un [facility] [place] DIAGNOSIS AND Name [facility] TREATMENT Encounters Start End Encounter Admission Attending Care Care Encounter Source Date/Time Date/Time Type Type Clinicians Facility Department ID 2020-12-13 Emergency [facility] [id number] Univers 10:09:54 [facility]y [facility] [place] [facility] 2020-12-11 Emergency [facility] [id number] Univers 04:02:45 [facility]y [facility] [place] [facility] 2022-02-21 2022-02-21 Orders Doctor 1.2.840.0 [id number] Univers 00:00:00 00:00:00 Only Unassigned, 62565.1.1 ity of [place] 3.104.2.7 [place] .3.504501 Medica l .8 Branch 2022-02-15 2022-02-15 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 Survey Field Assistant Pathology 1.2.840.6 [id number] Univers 13:30:00 13:45:00 Visit Pcp-Lab 20292.1.1 ity of 3.104.2.7 [place] .3.728957 Medica l .8 [place] 2022-02-15 2022-02-15 Outpatient R LARISSA [facility] [id number] Univers 08:45:00 10:52:26 DERRELL bricedl o f [facility] 2022-02-15 2022-02-15 Travel 1.2.840.1 1.2.028.058 [id number] Univers 00:00:00 00:00:00 71135.1.1 350.1.13.10 ity of 3.104.2.7 4.2.7.3.698 [place] .3.671963 084.8 Medica l .8 [place] 2022-01-11 2022-01-11 Outpatient R AKCIESUKHJINDERUNA [facility] [id number] Univers 11:00:00 12:39:46 UNA HESTER [facility] [place] [facility] 2022-01-11 2022-01-11 Orders Doctor 1.2.840.6 [id number] Univers 00:00:00 00:00:00 Only Unassigned, 65353.1.1 ity of [place] 3.104.2.7 [place] .3.708970 Medica l .8 [place] 2022-01-11 2022-01-11 Travel 1.2.840.1 1.2.558.686 [id number] Univers 00:00:00 00:00:00 20372.1.1 350.1.13.10 ity of 3.104.2.7 4.2.7.3.698 [place] .3.305988 084.8 Medica l .8 [place] 2021-11-24 2021-11-24 Outpatient R QUENTIN [facility] [id number] Univers 09:30:00 09:30:00 IGOR wesley selena martinez [facility] 2021-11-16 2021-11-16 Outpatient R KACIESUKHJINDER MCNEILBERLY [facility] [id number] Univers 11:00:00 11:00:00 UNA HESTER ld [facility] [place] [facility] 2021-10-26 2021-10-26 Outpatient R LARISSA [facility] [id number] Univers 08:00:00 08:00:00 DERRELL [facility] 2021-10-20 2021-10-20 Outpatient R QUENTIN, [facility] [id number] Univers 10:00:00 10:00:00 IGOR walters [facility] 2021-10-03 2021-10-03 Outpatient R JENNIFER, [facility] [id number] Univers 14:30:00 14:30:00 REX lupillo [facility] [place] [facility] 2021-09-21 2021-09-21 Outpatient R SELF, [facility] [id number] Univers 09:30:00 09:30:00 DERRELL [facility]ters [facility] 2021-08-24 2021-08-24 Outpatient R SELF, [facility] [id number] Univers 09:30:00 10:41:34 DERRELL walters [facility] 2021-08-24 2021-08-24 Travel 1.2.840.1 1.2.880.389 [id number] Univers 00:00:00 00:00:00 20825.1.1 350.1.13.10 ity of 3.104.2.7 4.2.7.3.698 [place] .3.565438 084.8 Medica l .8 Branch 2021-07-25 2021-07-25 Outpatient R LARISSA, [facility] [id number] Univers 09:00:00 09:00:00 DERRELL [facility]ters [facility] 2021-06-22 2021-06-22 Outpatient R UNA HESTER [facility] [id number] Univers 11:15:00 12:18:05 UNA HESTER dl [facility] [place] [facility] 2021-06-22 2021-06-22 Outpatient R UNA HESTER [facility] [id number] Univers 11:15:00 11:15:00 UNA HESTER [facility] 2021-06-22 2021-06-22 Travel 1.2.840.1 1.2.624.007 [id number] Univers 00:00:00 00:00:00 72840.1.1 350.1.13.10 ity of 3.104.2.7 4.2.7.3.698 [place] .3.637298 084.8 Medica l .8 Branch 2021-06-20 2021-06-20 Outpatient R SELF, [facility] [id number] Univers 11:15:00 11:15:00 DERRELL bricey o f [facility] 2021-06-20 2021-06-20 Outpatient R SELF, [facility] [id number] Univers 11:15:00 11:15:00 DERRELL bricey o f [place] [facility] 2021-06-08 2021-06-08 Outpatient R ROBEL MOORERINoa [facility] [id number] Univers 09:20:00 09:20:00 [facility] [place] [facility] 2021-06-08 2021-06-08 Patient Saavedra, 1.2.840.8 [id number] Univers 00:00:00 00:00:00 Secure Msg Zhu 00536.1.1 ity of [place] 3.104.2.7 [place] .3.408948 Medica l .8 [place] 2021-06-07 2021-06-07 Emergency X , [facility] ERT [id number] Univers 09:13:00 10:50:00 LULY wesley of [place] [facility] 2021-06-07 2021-06-07 Emergency [facility] 1.2.698.940 [id number] Univers 09:13:00 10:50:00 Luly [place] 350.1.13.10 i ty of [place] 4.2.7.2.686 [facility] [id number] Medi rogelio 084 [place] 2021-06-07 2021-06-07 Emergency Ny, 1.2.840.5 [id number] Univers 09:13:00 10:50:00 Luly 82363.1.1 ity of 3.104.2.7 [place] .3.783735 Medica l .8 [place] 2021-06-07 2021-06-07 Outpatient R SAAVEDRA, [facility] [id number] Univers 00:00:00 00:00:00 IGOR wesley o f [place] [facility] 2021-06-07 2021-06-07 Orders Doctor MOO 1.2.840.114 [id number] Univers 00:00:00 00:00:00 Only Unassigned, QUITA 350.1.13.10 ity of [place] [facility] 4.2.7.2.686 Iam as [id number] [address] 2021-06-07 2021-06-07 Travel 1.2.840.1 1.2.726.309 [id number] Univers 00:00:00 00:00:00 30129.1.1 350.1.13.10 ity of 3.104.2.7 4.2.7.3.698 [place] .3.603090 084.8 Medica l .8 [place] 2021-06-07 2021-06-07 Orders Doctor 1.2.840.2 [id number] Univers 00:00:00 00:00:00 Only Unassigned, 49321.1.1 ity of [place] 3.104.2.7 [place] .3.836699 Medica l .8 [place] 2021-06-03 2021-06-03 Travel 1.2.840.1 1.2.643.551 [id number] Univers 00:00:00 00:00:00 80862.1.1 350.1.13.10 ity of 3.104.2.7 4.2.7.3.698 [place] .3.263033 084.8 Medica l .8 [place] 2021-05-27 2021-05-27 Outpatient R SAAVEDRA, [facility] [id number] Univers 00:00:00 00:00:00 IGOR walters f [facility] 2021-05-27 2021-05-27 Outpatient R SAAVEDRA, [facility] [id number] Univers 00:00:00 00:00:00 IGOR walters f [facility] 2021-05-25 2021-05-25 Patient Doctor 1.2.840.7 [id number] Univers 00:00:00 00:00:00 Secure Msg Unassigned, 75630.1.1 ity of [place] 3.104.2.7 [place] .3.847950 Medica l .8 Branch 2021-05-25 2021-05-25 Patient Doctor 1.2.840.4 [id number] [facility] 00:00:00 00:00:00 Secure Msg Unassigned, 45603.1.1 ity of [place] 3.104.2.7 [place] .3.880805 Medica l .8 Branch 2021-05-20 2021-05-20 Telephone Jones 1.2.840.1 [id number] [facility] 00:00:00 00:00:00 Best, 63545.1.1 ity of [place] 3.104.2.7 [place] .3.633610 Medica l .8 Branch 2021-05-20 2021-05-20 Telephone Jones 1.2.840.8 [id number] Univers 00:00:00 00:00:00 Best, 79065.1.1 ity of [place] 3.104.2.7 [place] .3.274053 Medica l .8 Branch 2021-05-18 2021-05-18 Travel 1.2.840.1 1.2.793.159 [id number] Univers 00:00:00 00:00:00 37833.1.1 350.1.13.10 ity of 3.104.2.7 4.2.7.3.698 [place] .3.165858 084.8 Medica l .8 Branch 2021-05-18 2021-05-18 Travel 1.2.840.1 1.2.158.489 [id number] Univers 00:00:00 00:00:00 74194.1.1 350.1.13.10 ity of 3.104.2.7 4.2.7.3.698 [place] .3.329269 084.8 Medica l .8 [place] 2021-05-17 2021-05-17 Geological Survey Field Assistant Pcp-Lab [place] 1.2.840.114 [id number] [facility] 13:15:00 13:30:00 Visit Igor Saavedra PRIMARY 350.1.13.1 0 ity of CARE 4.2.7.2.686 Sujey BROWNLEE [id number] Wi dical 366 [place] 2021-05-17 2021-05-17 [employer]ological [employer] Field Assistant Igor Saavedra 1.2.840.1 1 [id number] Univers 13:15:00 13:30:00 Visit Pcp-Lab 66884.1.1 ity of 3.104.2.7 [place] .3.219517 Medica l .8 [place] 2021-05-17 2021-05-17 [employer]ological [employer] Field Assistant Igor Saavedra 1.2.840.1 1 [id number] Univers 13:15:00 13:30:00 Visit Pcp-Lab 31040.1.1 ity of 3.104.2.7 [place] .3.345117 Medica l .8 [place] 2021-05-17 2021-05-17 [facility] [id number] Univers 09:00:00 10:25:05 IGOR wesley o [facility] 2021-05-17 2021-05-17 Office Igor Saavedra 1.2.840.1 [id number] Univers 09:00:00 10:25:05 Visit Deonte Joel 87776.1.1 ity of 3.104.2.7 [place] .3.299875 Medica l .8 [place] 2021-05-17 2021-05-17 [facility] [id number] Univers 09:00:00 10:25:05 IGOR wesley o [facility] 2021-05-17 2021-05-17 [facility] [id number] Univers 09:30:00 09:30:00 IGOR bricey o [facility] 2021-05-17 2021-05-17 Travel 1.2.840.1 1.2.479.336 [id number] Univers 00:00:00 00:00:00 98082.1.1 350.1.13.10 ity of 3.104.2.7 4.2.7.3.698 [place] .3.553505 084.8 Medica l .8 [place] 2021-05-17 2021-05-17 Travel 1.2.840.1 1.2.460.984 [id number] Univers 00:00:00 00:00:00 33749.1.1 350.1.13.10 ity of 3.104.2.7 4.2.7.3.698 [place] .3.673470 084.8 Medica l .8 [place] 2021-04-26 2021-04-26 Outpatient R [facility] [id number] Univers 09:00:00 09:00:00 ity [facility] [place] [facility] 2021-04-26 2021-04-26 Outpatient R WENDY [facility] [id number] Univers 09:00:00 09:00:00 ATTENDING ity [facility] [place] [facility] 2021-04-20 2021-04-20 Outpatient R UNA HESTER [facility] [id number] Univers 08:45:00 08:45:00 UNA HESTER [facility] 2021-04-11 2021-04-11 Outpatient R SALLY MITCHELL [facility] [id number] Univers 08:40:00 08:40:00 SALLY MITCHELL dl [facility] [place] [facility] 2021-04-11 2021-04-11 Outpatient SALLY FIGUEROA [facility] [id number] Univers 08:40:00 08:40:00 SALLY MITCHELL dl [facility] [place] [facility] 2021-03-21 2021-03-21 Outpatient R SALLY MITCHELL [facility] [id number] Univers 08:00:00 08:00:00 SALLY MITCHELL [facility] 2021-03-17 2021-03-17 Patient Doctor 1.2.840.9 [id number] Univers 00:00:00 00:00:00 Secure Msg Unassigned, 01625.1.1 ity of [place] 3.104.2.7 [place] .3.142170 Medica l .8 [place] 2021-03-17 2021-03-17 Patient Doctor 1.2.840.3 [id number] Univers 00:00:00 00:00:00 Secure Msg Unassigned, 87716.1.1 ity of [place] 3.104.2.7 [place] .3.927717 Medica l .8 [place] 2021-03-17 2021-03-17 Patient Doctor 1.2.840.2 [id number] Univers 00:00:00 00:00:00 Secure Msg Unassigned, 48201.1.1 ity of [place] 3.104.2.7 [place] .3.880797 Medica l .8 [place] 2021-03-16 2021-03-16 Geological Survey Field Assistant [place] 1.2.840.1 [id number] Univers 13:15:00 13:30:00 Visit Pcp-Lab 82459.1.1 ity of 3.104.2.7 [place] .3.000158 Medica l .[address] [place] [address] 2021-03-16 2021-03-16 Geological [employer] Field Assistant [place] 1.2.840.1 [id number] Univers 13:15:00 13:30:00 Visit Pcp-Lab 25153.1.1 ity of 3.104.2.7 [place] .3.920146 Medica l .[address] [place] [address] 2021-03-16 2021-03-16 Outpatient Tonya LOCKWOOD [facility] [id number] Univers 13:15:00 13:15:00 RALEIGH wesley [facility] [place] [facility] 2021-03-16 2021-03-16 Outpatient UNA DELGADILLO [facility] [id number] Univers 12:00:00 12:09:51 UNA HESTER [facility] 2021-03-16 2021-03-16 Outpatient UNA DELGADILLO [facility] [id number] Univers 12:00:00 12:09:51 UNA HESTER [facility] 2021-03-16 2021-03-16 Outpatient UNA DELGADILLO [facility] [id number] Univers 12:00:00 12:00:00 UNA HESTER [facility] 2021-03-16 2021-03-16 Travel 1.2.840.1 1.2.628.840 [id number] Univers 00:00:00 00:00:00 91186.1.1 350.1.13.10 ity of 3.104.2.7 4.2.7.3.698 [place] .3.425290 084.8 Medica l .8 [place] 2021-03-16 2021-03-16 Travel 1.2.840.1 1.2.058.111 [id number] Univers 00:00:00 00:00:00 04297.1.1 350.1.13.10 ity of 3.104.2.7 4.2.7.3.698 [place] .3.060561 084.8 Medica l .8 [place] 2021-03-11 2021-03-11 Emergency [facility] [id number] Univers 09:44:00 13:06:00 HALIMA [facility]y [facility] 2021-03-11 2021-03-11 Emergency Geeta, 1.2.840.1 [id number] Univers 09:44:00 13:06:00 Halima Cates 83144.1.1 ity of 3.104.2.7 [place] .3.047256 Medica l .8 [place] 2021-03-11 2021-03-11 Emergency X [facility] [id number] Univers 09:44:00 13:06:00 HALIMA [facility] 2021-03-11 2021-03-11 Emergency Geeta, 1.2.840.6 [id number] Univers 09:44:00 13:06:00 Halima Cates 52023.1.1 ity of 3.104.2.7 [place] .3.461845 Medica l .8 [place] 2021-03-11 2021-03-11 Emergency X [facility] [id number] Univers 09:44:00 13:06:00 HALIMA ity of [facility] 2021-03-11 2021-03-11 Emergency [facility] [id number] Univers 09:44:00 09:44:00 HALIMA ity of [facility] 2021-03-11 2021-03-11 Travel 1.2.840.1 1.2.370.579 [id number] Univers 00:00:00 00:00:00 72753.1.1 350.1.13.10 ity of 3.104.2.7 4.2.7.3.698 [place] .3.731173 084.8 Medica l .8 [place] 2021-03-11 2021-03-11 Travel 1.2.840.1 1.2.037.357 [id number] Univers 00:00:00 00:00:00 54996.1.1 350.1.13.10 ity of 3.104.2.7 4.2.7.3.698 [place] .3.277487 084.8 Medica l .8 [place] 2021-03-08 2021-03-08 [employer]ological [employer] Field Assistant [place] 1.2.840.1 [id number] Univers 15:00:00 15:15:00 Visit Pcp-Lab 31418.1.1 ity of 3.104.2.7 [place] .3.386355 Medica l .8 [place] 2021-03-08 2021-03-08 [employer]ological [employer] Field Assistant [place] 1.2.840.1 [id number] Univers 15:00:00 15:15:00 Visit Pcp-Lab 43951.1.1 ity of 3.104.2.7 [place] .3.582416 Medica l .8 [place] 2021-03-08 2021-03-08 Outpatient R FABIÁN [facility] [id number] Univers 15:00:00 15:00:00 RALEIGH wesley [facility] 2021-01-31 2021-01-31 Outpatient R SELF, [facility] [id number] Univers 10:15:00 10:55:06 DERRELL martinez [facility] 2020-12-29 2020-12-29 Outpatient R SELF, [facility] [id number] Univers 08:00:00 08:41:00 DERRELL martinez [facility] 2020-12-29 2020-12-29 Outpatient R SELF, [facility] [id number] Univers 08:00:00 08:41:00 DERRELL martinez [facility] 2020-12-29 2020-12-29 Travel 1.2.840.1 [id number] [id number] Univers 00:00:00 00:00:00 77650.1.1 350.1.13.10 ity of 3.104.2.7 4.[place]3.698 [place] .3.881854 084.8 Medica l .8 [place] 2020-12-29 2020-12-29 Travel 1.2.840.1 1.2.312.236 [id number] Univers 00:00:00 00:00:00 93775.1.1 350.1.13.10 ity of 3.104.2.[place] .3.801709 084.8 Medica l .8 [place] 2020-12-22 2020-12-22 Outpatient R SELF, [facility] [id number] Univers 09:30:00 09:30:00 DERRELL martinez [facility] 2020-12-22 2020-12-22 Outpatient R SELF, [facility] [id number] Univers 09:30:00 09:30:00 [facility]RELL [facility] Center 2020-11-10 2020-11-10 Outpatient R SHE, [facility] [id number] Univers 09:30:00 09:30:00 [place] ity [facility] 2020-11-10 2020-11-10 Orders Doctor 1.2.840.5 [id number] Univers 00:00:00 00:00:00 Only Unassigned, 86786.1.1 ity of [place] 3.104.2.7 [place] .3.215076 Medica l .8 [place] 2020-11-10 2020-11-10 Travel 1.2.840.1 1.2.168.636 [id number] Univers 00:00:00 00:00:00 10455.1.1 350.1.13.10 ity of 3.104.2.7 4.[place].698 [place] .3.778080 084.8 Medica l .8 [place] 2020-10-11 2020-10-11 Outpatient R SELF, [facility] [id number] Univers 08:00:00 08:00:00 DERRELL martinez [facility] 2020-10-11 2020-10-11 Travel 1.2.840.1 1.2.161.473 [id number] Univers 00:00:00 00:00:00 82295.1.1 350.1.13.10 ity of 3.104.2.7 [place]3.698 [place] .3.277141 084.8 Medica l .8 [place] 2020-09-13 2020-09-13 Outpatient R SELF, [facility] [id number] Univers 08:00:00 08:00:00 DERRELL martinez [facility] 2020-09-13 2020-09-13 Travel 1.2.840.1 [id number] [id number] Univers 00:00:00 00:00:00 90314.1.1 350.1.13.10 ity of 3.104.2.7 4.[place].3.698 [place] .3.522991 084.8 Medica l .8 [place] 2020-09-02 2020-09-02 Emergency Rose, 1.2.840.6 [id number] [facility] 16:12:00 20:21:00 Patti 73718.1.1 ity of 3.104.2.7 [place] .3.004315 Medica l .8 [place] 2020-09-02 2020-09-02 [facility] 1.2.840.114 [id number] 16:12:00 20:21:00 Patti [place] 350.1.13.10 [place] 4.2.7.2.686 [place] [id number] 2020-09-02 2020-09-02 Travel 1.2.840.1 1.2.543.469 [id number] Univers 00:00:00 00:00:00 59191.1.1 350.1.13.10 ity of 3.104.2.7 4.[place].3.698 [place] .3.425996 084.8 Medica l .8 [place] 2020-09-02 2020-09-02 Orders Doctor 1.2.840.3 [id number] Univers 00:00:00 00:00:00 Only Unassigned, 14276.1.1 ity of [place] 3.104.2.7 [place] .3.654135 Medica l .8 [place] 2020-09-02 2020-09-02 Orders Doctor OMO 1.2.840.114 [id number] 00:00:00 00:00:00 Only Unassigned, QUITA 350.1.13.10 [place] [facility] 4.2.7.2.686 [id number] 2020-08-25 2020-08-25 Outpatient R [facility] [id number] Univers 09:15:00 09:15:00 [facility] 2020-08-09 2020-08-09 Outpatient R LARISSA, [facility] [id number] Univers 08:45:00 08:45:00 DERRELL [facility] 2020-06-28 2020-06-28 Outpatient R FABIÁN [facility] [id number] Univers 13:45:00 13:45:00 RALEIGH [facility] 2020-06-21 2020-06-21 Outpatient R SELF, [facility] [id number] Univers 15:15:00 15:15:00 DERRELL martinez [facility] 2020-06-07 2020-06-07 Outpatient R SELF, [facility] [id number] Univers 08:45:00 08:45:00 DERRELL walters [facility] 2020-05-25 2020-05-25 Outpatient R MICHELLE [facility] [id number] Univers 08:30:00 08:30:00 CRISTO [facility] 2020-03-15 2020-03-15 Outpatient R FABIÁN [facility] [id number] Univers 13:00:00 13:00:00 RALEIGH [facility] 2020-03-08 2020-03-08 Outpatient R SELF, [facility] [id number] Univers 13:00:00 13:00:00 DERRELL w[facility] 2020-02-16 2020-02-16 Outpatient R SELF, [facility] [id number] Univers 11:00:00 11:00:00 DERRELL wesley [facility] 2020-01-27 2020-01-27 Outpatient R SELF, [facility] [id number] Univers 11:45:00 11:45:00 DERRELL ity o juan [facility] 2020-01-19 2020-01-19 Outpatient R SELF, [facility] [id number] Univers 08:00:00 08:00:00 DERRELL wesley o juan [facility] 2019-12-22 2019-12-22 Outpatient R SELF, [facility] [id number] Univers 08:45:00 08:45:00 DERRELL wesley o juan [facility] 2019-12-05 2019-12-05 Outpatient R ALEISHA, [facility] [id number] Univers 10:45:00 10:45:00 PRISCA [facility] 2019-10-23 2019-10-23 Outpatient R SANDY, [facility] [id number] Univers 09:15:00 09:15:00 KATH [facility] 2019-10-15 2019-10-15 Outpatient R SHE, [facility] [id number] Univers 11:30:00 11:30:00 LA [facility] 2019-10-01 2019-10-01 Outpatient R SHE, [facility] [id number] Univers 14:30:00 14:30:00 LA [facility] 2019-09-01 2019-09-01 Outpatient R SELF, [facility] [id number] Univers 08:45:00 08:45:00 DERRELL wesley o [facility] 2019-08-06 2019-08-06 Outpatient R SHALOM, [facility] [id number] Univers 13:00:00 13:00:00 ANGELA [facility] Results Test Description Test Time Test Comments Results Result Comments Source LITHIUM 2022-02-15 20:05:22 Test Item Value Reference Range Interpretation Comme nts [place] (test code = 2516314320) 1.1 mmol/L 0.6-1.2 ZAINAB (test code = ZAINAB) Toxic Range: ? Greater than 1.2 mmol/L Lab Interpretation (test code = 98176-7) Normal [facility]2023-01-04 20:05:22 Test Item Value Reference Range Interpretation Comments [place] (test code = 1.1 mmol/L 0.6-1.2 [id number]) ZAINAB (test code = ZAINAB) Toxic Range: ? Greater than 1.2 mmol/L Lab Interpretation (test Normal code = 89785-6) [facility]2023-01-04 20:05:22 Test Item Value Reference Range Interpretation Comments [place] (test code = 1.1 mmol/L 0.6-1.2 4608156047) ZAINAB (test code = ZAINAB) Toxic Range: ? Greater than 1.2 mmol/L Lab Interpretation (test Normal code = 83052-8) [facility]2023-01-04 20:05:22 Test Item Value Reference Range Interpretation Comments [place] (test code = 1.1 mmol/L 0.6-1.2 [id number]) ZAINAB (test code = ZAINAB) Toxic Range: ? Greater than 1.2 mmol/L Lab Interpretation (test Normal code = 24000-1) [facility]2023-01-04 20:05:22 Test Item Value Reference Range Interpretation Comments [place] (test code = 1.1 mmol/L 0.6-1.2 8299575758) ZAINAB (test code = ZAINAB) Toxic Range: ? Greater than 1.2 mmol/L Lab Interpretation (test Normal code = 65693-4) [facility]2023-01-04 20:05:22 Test Item Value Reference Range Interpretation Comments [place] (test code = 1.1 mmol/L 0.6-1.2 7237139469) ZAINAB (test code = ZAINAB) Toxic Range: ? Greater than 1.2 mmol/L Lab Interpretation (test Normal code = 84076-3) [facility]2023-01-04 20:05:22 Test Item Value Reference Range Interpretation Comments [place] (test code = 1.1 mmol/L 0.6-1.2 8421848790) ZAINAB (test code = ZAINAB) Toxic Range: ? Greater than 1.2 mmol/L Lab Interpretation (test Normal code = 73169-2) [facility]2023-01-04 20:05:22 Test Item Value Reference Range Interpretation Comments [place] (test code = 1.1 mmol/L 0.6-1.2 8991687109) ZAINAB (test code = ZAINAB) Toxic Range: ? Greater than 1.2 mmol/L Lab Interpretation (test Normal code = 48302-4) [facility]2023-01-04 20:05:22 Test Item Value Reference Range Interpretation Comments [place] (test code = 1.1 mmol/L 0.6-1.2 9743545894) ZAINAB (test code = ZAINAB) Toxic Range: ? Greater than 1.2 mmol/L Lab Interpretation (test Normal code = 76185-5) [facility]2023-01-04 20:05:22 Test Item Value Reference Range Interpretation Comments [place] (test code = 1.1 mmol/L 0.6-1.2 1525285941) ZAINAB (test code = ZAINAB) Toxic Range: ? Greater than 1.2 mmol/L Lab Interpretation (test Normal code = 88585-2) [facility]2018-07-20 07:27:00 Test Item Value [...] VERY HIGH.........>/ = 190 mg/dL Comments to Manager Database: ADD TO AM LABSLIPID PROFILE (CORONARY RISK)2018-07-20 [...] MG/DL 0-99 code = LDL) Comments to Manager Database: ADD TO AM LABSPROTHROMBIN [id number] 06:24:00 Test Item Value Reference Range Interpretation [...] myocar dial infarction. 2.0 - 3.0 3. Maintenance Foreman al prosthesis hear t valves, recurre nt systemic emboli sm. 3.0 - 4.5 Comments to Manager Database: NURSE WILL BRING SPECIMEN TO LABPTT ACTIVATED 2018-07-20 06:24:00 Test Item Value Reference Range Interpretation Comments PTT ACTIVATED (test code = APTT) 29.3 SECONDS 22.0-33.0 N Comments to Manager Database: NURSE WILL BRING SPECIMEN TO LABBASIC METABOLIC [...] 9.6 MG/DL 8.4-10.2 N CA) Comments to Manager Database: NURSE WILL BRING SPECIMEN TO LAB Comments to Manager Database: NURSE WILL BRING SPECIMEN TO [id number] 06:13:00 Test Item Value Reference Range Interpretation Comments MAGNESIUM (test code = MAG) 2.2 MG/DL 1.6-2.3 N Comments to Manager Database: NURSE WILL BRING SPECIMEN TO LAB Comments to Manager Database: NURSE WILL BRING SPECIMEN TO LABCBC W/AUTO [id number] 06:02:00 Test Item Value Reference Range Interpretation [...]
[2022-05-04] MEDS ORDERED: ONDANSETRON 4 MG (ODT) TAB ONE (16:48)
[2022-05-04 16:51] LABS: Absolute Lymphocytes (CBC) 1.3 K/uL (0.7-4.9); Hematocrit 29.1 % (36.0-45.0); Lymphocytes % 14.8 % (15.3-44.8); MCV 68.9 fL (80-100); MPV 7.9 fL (7.6-11.3); RBC Red Blood Cell Count 4.23 M/uL (3.86-4.86)
[2022-05-04 16:59] LABS: Protime INR 1.02
[2022-05-04 17:00] LABS: Blood Morphology Comment NOTED (NOT SEEN); Hypochromasia 1+; Platelet Estimate ADEQ; White Blood Cell Scan OK (OK)
[2022-05-04 17:08] LABS: Urine Bacteria None Seen /HPF (<20); Urine Bilirubin NEGATIVE (Negative); Urine Blood Negative (Negative); Urine Clarity Clear (Clear); Urine Color Light-Yellow (Yellow); Urine Glucose NEGATIVE (Negative); Urine Mucus Slight /HPF (None Seen); Urine Protein NEGATIVE (Negative); Urine RBC <5 /HPF (None Seen); Urine Urobilinogen Normal (Normal)
[2022-05-04 17:11] LABS: Specific Gravity 1.015 (1.005-1.030)
[2022-05-04 17:22] LABS: Troponin High Sensitivity 54.7 pg/mL (<58.9)
[2022-05-04 17:27] LABS: Magnesium 2.4 mg/dL (1.6-2.4); Potassium 3.8 mEq/L (3.5-5.1)
[2022-05-04] MEDS ORDERED: LORazepam 2 MG/ML VIAL ONE (17:37)
--- NOTE | 2022-05-04 17:38 | RAD REPORT ---
EXAM DESCRIPTION: RAD - Chest Single View - 05/04/2022 5:29 pm CLINICAL HISTORY: PALPITATIONS COMPARISON: Chest Pa And Lat (2 Views) dated 02/11/2022; Chest Single View dated 01/29/2022; Chest S song View dated 01/16/2022; Chest Single View dated 07/21/2021 FINDINGS: Lines: None. Lungs: No evidence of edema or pneumonia. Pleural: No significant pleural effusions or pneumothorax. Cardiac: The heart size is within normal limits. Mediastinum: Within normal limits. Bones: No acute fractures. Other: None IMPRESSION: No acute cardiopulmonary disease.
--- NOTE | 2022-05-04 17:53 | RAD REPORT ---
EXAM DESCRIPTION: CT - Head Brain Wo Cont - 05/04/2022 5:47 pm CLINICAL HISTORY: HEADACHE COMPARISON: Head Brain Wo Cont dated 02/11/2022; Head Brain Wo Cont dated 07/07/2020 TECHNIQUE: All CT scans are performed using dose optimization technique as appropriate and may inclu de automated exposure control or mA/KV adjustment according to patient size. FINDINGS: No intracranial hemorrhage, hydrocephalus or extra-axial fluid collection.No areas of brai n edema or evidence of midline shift. The paranasal sinuses and mastoids are clear. The calvarium is intact. IMPRESSION: No acute intracranial abnormality.
[2022-05-04] MEDS ORDERED: DIPHENHYDRAMINE 50 MG/ML VIAL ONE (20:46)
[2022-05-04] MEDS ORDERED: METOCLOPRAMIDE 10 MG/2mL INJ ONE (20:46)
[2022-05-04] MEDS ORDERED: KETOROLAC 30 MG/ML INJ ONE (20:46)
--- NOTE | 2022-05-04 21:10 | ER ---
Nurse's Notes [facility] Name: Shivani Lagunas Age: 46 yrs Sex: Female : 1975 Arrival Date: 05/04/2022 Time: 15:47 Bed 17 Private MD: Diagnosis: Palpitations;Headache;Anemia, unspecified;Nausea Presentation: 05/04 16:21 Chief complaint: Patient states: "I've had a headache for 3 days, I was cleaning a [facility] house with my mom and I felt my heart racing and felt shaky". Pt also reports feeling confused, pt states "I actually left the house I was cleaning and I completely forgot the house and actually went into a different house". 16:21 Coronavirus screen: headache. Ebola Screen: Patient denies travel to an Ebola-affected [facility] area in the 21 days before illness onset. Initial Sepsis Screen: Does the patient meet any 2 criteria? HR > 90 bpm. Does the patient have a suspected source of infection? No. Patient's initial sepsis screen is negative. Risk Assessment: Do you want to hurt yourself or someone else? Patient reports no desire to harm self or others. Onset of symptoms was May 04, 2022. 16:21 Acuity: ALICIA 3 aa5 16:21 Method Of Arrival: Ambulatory aa5 Historical: - Allergies: 16:22 Sulfa (Sulfonamide Antibiotics); aa5 - PMHx: 16:22 Bipolar disorder; Hypertensive disorder; Schizophrenia; aa5 - PSHx: 16:22 section; Cholecystectomy; aa5 - Immunization history:: Adult Immunizations unknown. - Social history:: Smoking status: Patient denies any tobacco usage or history of. Screenin:[address] [facility] ED Fall Risk Assessment (Adult) History of falling in the last 3 months, kc6 including since admission No falls in past 3 months (0 pts) Confusion or Disorientation No (0 pts) Intoxicated or Sedated No (0 pts) Impaired Gait No (0 pts) Mobility Assist Device Used No (0 pt) Altered Elimination No (0 pt) Score/Fall Risk Level 0 - 2 = Low Risk Oriented to surroundings, Maintained a safe environment, Educated pt \\T\\ family on fall prevention, incl call for assistance when getting out of bed, Assessed \\T\\ reinforced patient's understanding of fall precautions, Hourly rounding (assess needs \\T\\ fall precautionary measures) done. Abuse screen: Denies threats or abuse. Denies injuries from another. Nutritional screening: No deficits noted. Tuberculosis screening: No symptoms or risk factors identified. Assessment: 16:30 General: Appears in no apparent distress. comfortable, Behavior is calm, cooperative, kc6 appropriate for age. Pain: Denies pain. Neuro: [place] Agitation-Sedation Scale (RASS): 0 - Alert and Calm Level of Consciousness is awake, alert, obeys commands, Oriented to person, place, time, situation, Appropriate for age. Cardiovascular: Capillary refill < 3 seconds. Respiratory: Airway is patent Trachea midline Respiratory effort is even, unlabored, Respiratory pattern is regular, symmetrical. GI: Abdomen is flat, non-distended, Bowel sounds present X 4 quads. Abd is soft and non tender X 4 quads. Reports nausea, Patient currently denies diarrhea, vomiting. : No signs and/or symptoms were reported regarding the genitourinary system. EENT: No signs and/or symptoms were reported regarding the EENT system. Derm: No signs and/or symptoms reported regarding the dermatologic system. Skin is intact, Skin is pink, warm \\T\\ dry. Musculoskeletal: No signs and/or symptoms reported regarding the musculoskeletal system. Circulation, motion, and sensation intact. Capillary refill < 3 seconds, Range of motion: intact in all extremities. 17:30 Reassessment: Patient appears in no apparent distress at this time. No changes from kc6 previously documented assessment. Patient and/or family updated on plan of care and expected duration. Pain level reassessed. Patient is alert, oriented x 3, equal unlabored respirations, skin warm/dry/pink. 18:30 Reassessment: Patient appears in no apparent distress at this time. No changes from kc6 previously documented assessment. Patient and/or family updated on plan of care and expected duration. Pain level reassessed. Patient is alert, oriented x 3, equal unlabored respirations, skin warm/dry/pink. 19:21 General: Behavior is cooperative, Reports anxiety. Pain: Denies pain. Neuro: Level of ha1 Consciousness is awake, alert, obeys commands, Oriented to person, place, time, situation. Cardiovascular: Capillary refill < 3 seconds Patient's skin is warm and dry. Respiratory: Airway is patent Respiratory effort is even, unlabored, Respiratory pattern is regular, symmetrical. GI: Abdomen is flat, non-distended, Bowel sounds present X 4 quads. Abd is soft and non tender Reports nausea. : No signs and/or symptoms were reported regarding the genitourinary system. Derm: Skin is pink, warm \\T\\ dry. Musculoskeletal: Circulation, motion, and sensation intact. Range of motion: intact in all extremities. 20:20 Reassessment: Patient and/or family updated on plan of care and expected duration. Pain ha1 level reassessed. Patient is alert, oriented x 3, equal unlabored respirations, skin warm/dry/pink. 21:20 Reassessment: Patient and/or family updated on plan of care and expected duration. Pain ha1 level reassessed. Patient is alert, oriented x 3, equal unlabored respirations, skin warm/dry/pink. Vital Signs: 16:21 BP 144 / 75; Pulse 96; Resp 18 S; Temp 98.2(O); Pulse Ox 100% on R/A; Weight 100.24 kg aa5 (R); Height 5 ft. 6 in. (R); 17:57 BP 143 / 70; Pulse 89; Resp 20 S; Pulse Ox 100% on R/A; kc6 18:46 BP 134 / 62; Pulse 98; Resp 18 S; Pulse Ox 100% on R/A; kc6 19:22 BP 138 / 70; Pulse 92; Resp 18 S; Pulse Ox 100% on R/A; ha1 20:20 BP 142 / 61; Pulse 87; Resp 17 S; Pulse Ox 100% on R/A; ha1 21:00 BP 133 / 57; Pulse 90; Resp 18 S; Pulse Ox 100% ; ha1 16:21 Body Mass Index 35.67 (100.24 kg, 167.64 cm) aa5 ED Course: 15:47 Patient arrived in ED. mr 15:47 Bal Sagastume PA is PHCP. cp 15:47 Isaías Murphy MD is Attending Physician. cp 16:21 Arm band placed on. aa5 16:26 Triage completed. aa5 16:27 Flaquita Lui, AMANDA is Primary Nurse. kc6 16:30 Patient has correct armband on for positive identification. Bed in low position. Call kc6 light in reach. Side rails up X2. Adult w/ patient. 16:41 Inserted saline lock: 20 gauge in right forearm, using aseptic technique. Blood kc6 collected. 16:50 Urinalysis W/Microscopic Sent. kc6 16:50 PREGU Sent. kc6 17:30 XRAY Chest (1 view) In Process Unspecified. EDMS 17:49 CT Head Brain wo Cont In Process Unspecified. EDMS 21:34 No provider procedures requiring assistance completed. IV discontinued, intact, ha1 bleeding controlled, No redness/swelling at site. Pressure dressing applied. Administered Medications: 16:50 Drug: Ondansetron PO 4 mg Route: PO; kc6 18:46 Follow up: Response: No adverse reaction; Nausea is increased kc6 17:38 Drug: Ativan IVP 0.5 mg Route: IVP; Site: right antecubital; kc6 18:46 Follow up: Response: No adverse reaction; Anxiety decreased kc6 21:05 Drug: Ketorolac IVP 15 mg Route: IVP; Site: right antecubital; eh3 21:34 Follow up: Response: No adverse reaction; Pain is decreased ha1 21:05 Drug: metoCLOPramide IVP 10 mg Route: IVP; Site: right antecubital; eh3 21:34 Follow up: Response: No adverse reaction ha1 21:05 Drug: diphenhydrAMINE IVP 25 mg Route: IVP; Site: right antecubital; eh3 21:34 Follow up: Response: No adverse reaction ha1 Medication: 21:35 VIS not applicable for this client. ha1 Outcome: 21:10 Discharge ordered by . cp 21:35 Discharged to home ambulatory, with family. ha1 21:35 Condition: stable 21:35 Discharge instructions given to patient, family, Instructed on discharge instructions, follow up and referral plans. medication usage, Demonstrated understanding of instructions, follow-up care, medications, Prescriptions given X 3. 21:35 Patient left the ED. ha1 Signatures: Dispatcher [employer] JORGE LUIS RobertIona mr SalinasSoha, RN RN aa5 Bal Sagastume PA PA cp Hall, Erin, RN RN eh3 Nicolasa Franks, RN RN ha1 Flaquita Lui RN RN kc6
--- NOTE | 2022-05-04 21:10 | EDPHYS ---
Physician Documentation [facility] Name: Shivani Lagunas Age: 46 yrs Sex: Female : 1975 Arrival Date: 05/04/2022 Time: 15:47 Bed 17 Private MD: ED Physician Isaías Murphy HPI: 05/04 16:35 This 46 yrs old Female presents to ER via Ambulatory with complaints of Nausea.cp 16:35 The patient complains of pain to the forehead and left side of head. The patient cp describes the headache as aching, waxing and waning. Onset: The symptoms/episode began/occurred 3 day(s) ago. 16:35 The patient presents with a history of heart racing. cp 16:35 Context: The symptoms occur at rest. cp 16:35 Onset: The symptoms/episode began/occurred today. Patient reports headache that started cp 3 days ago that persists but would improve with OTC meds. 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 Patient reports nausea and palpitations today. Historical: - Allergies: 16:22 Sulfa (Sulfonamide Antibiotics); aa5 - PMHx: 16:22 Bipolar disorder; Hypertensive disorder; Schizophrenia; aa5 - PSHx: 16:22 section; Cholecystectomy; aa5 - Immunization history:: Adult Immunizations unknown. - Social history:: Smoking status: Patient denies any tobacco usage or history of. ROS: 16:40 Constitutional: Negative for fever, poor PO intake. cp 16:40 Eyes: Negative for injury, pain, redness, and discharge. cp 16:40 ENT: Negative for drainage from ear(s), ear pain, sore throat, difficulty swallowing, difficulty handling secretions. 16:40 Cardiovascular: Positive for palpitations, Negative for edema. 16:40 Respiratory: Negative for cough, shortness of breath, wheezing. 16:40 Abdomen/GI: Positive for nausea, Negative for abdominal pain, vomiting, diarrhea, constipation, black/tarry stool, rectal bleeding. 16:40 : Negative for urinary symptoms. 16:40 Neuro: Positive for headache, tingling, weakness, Negative for altered mental status. 16:40 All other systems are negative. Exam: 16:40 ECG was reviewed by the Attending Physician. cp 16:45 Constitutional: The patient appears in no acute distress, alert, awake, cp non-diaphoretic, non-toxic, well developed, well nourished. 16:45 Head/Face: Normocephalic, atraumatic. cp 16:45 Eyes: Periorbital structures: appear normal, Pupils: equal, round, and reactive to light and accomodation, Extraocular movements: intact throughout, Conjunctiva: normal, no exudate, no injection, Sclera: no appreciated abnormality, Lids and lashes: appear normal, bilaterally. 16:45 ENT: External ear(s): are unremarkable, Ear canal(s): are normal, clear, TM's: dullness, bilaterally, Nose: is normal, Mouth: Lips: moist, Oral mucosa: pink and intact, moist, Posterior pharynx: is normal, airway is patent, no erythema, no exudate. 16:45 Neck: ROM/movement: is normal, is supple, without pain, no range of motions limitations, no meningismus. 16:45 Chest/axilla: Inspection: normal. 16:45 Cardiovascular: Rate: normal, Rhythm: regular, Heart sounds: murmur, not appreciated, Edema: is not appreciated, JVD: is not appreciated. 16:45 Respiratory: the patient does not display signs of respiratory distress, Respirations: normal, no use of accessory muscles, no retractions, labored breathing, is not present, Breath sounds: are clear throughout, no decreased breath sounds, no stridor, no wheezing. 16:45 Abdomen/GI: Inspection: abdomen appears normal, Bowel sounds: active, all quadrants, Palpation: abdomen is soft and non-tender, in all quadrants. 16:45 Back: pain, is absent, ROM is normal. 16:45 Neuro: Orientation: to person, place \T\ time. Mentation: is normal, Cerebellar function: Romberg testing is negative, normal finger to nose testing, heel to mejia testing is normal, Motor: moves all fours, strength is normal, Sensation: no obvious gross deficits, Gait: is steady, at a normal pace, without difficulty. Vital Signs: 16:21 BP 144 / 75; Pulse 96; Resp 18 S; Temp 98.2(O); Pulse Ox 100% on R/A; Weight 100.24 kg aa5 (R); Height 5 ft. 6 in. (R); 17:57 BP 143 / 70; Pulse 89; Resp 20 S; Pulse Ox 100% on R/A; kc6 18:46 BP 134 / 62; Pulse 98; Resp 18 S; Pulse Ox 100% on R/A; kc6 19:22 BP 138 / 70; Pulse 92; Resp 18 S; Pulse Ox 100% on R/A; ha1 20:20 BP 142 / 61; Pulse 87; Resp 17 S; Pulse Ox 100% on R/A; ha1 21:00 BP 133 / 57; Pulse 90; Resp 18 S; Pulse Ox 100% ; ha1 16:21 Body Mass Index 35.67 (100.24 kg, 167.64 cm) aa5 MDM: 16:20 Patient medically screened. cp 17:00 Differential diagnosis: cerebral vascular accident, arrythmia, dehydration, stress cp disorder, hypoglycemia, hyponatremia, intracerebral hemorrhage, migraine, neoplasm, tension headache. 21:10 Data reviewed: vital signs, nurses notes, lab test result(s), EKG, radiologic studies, cp CT scan, plain films. 21:10 Consideration of Admission/Observation Escalation of care including cp admission/observation considered. I considered the following discharge prescriptions or medication management in the emergency department Medications were administered in the Emergency Department. See MAR. Independent interpretation of the following test(s) in the Emergency Department EKG: See my EKG interpretation above X-Ray: My interpretation is chest image negative for infiltrates. Test considered but Not performed: CT: chest. Care significantly affected by the following chronic conditions: Hypertension. Counseling: I had a detailed discussion with the patient and/or guardian regarding: the historical points, exam findings, and any diagnostic results supporting the discharge/admit diagnosis, lab results, radiology results, the need for outpatient follow up, a family practitioner, to return to the emergency department if symptoms worsen or persist or if there are any questions or concerns that arise at home. Response to treatment: the patient's symptoms have markedly improved after treatment, and as a result, I will discharge patient. 21:10 ED course: VSS. Patient resting comfortably in exam room. No complaints of chest pain. cp Reports symptoms improved. Will discharge to home for continued monitoring. 05/04 16:30 Order name: Basic Metabolic Panel; Complete Time: 18:01 cp 05/04 18:01 Interpretation: Reviewed. cp 05/04 16:30 Order name: CBC with Diff; Complete Time: 17:13 cp 05/04 17:13 Interpretation: Normal except: HCT 29.1; MCV 68.9; MCH 21.9; HGB 9.3; MCHC 31.8; RDW cp 18.2; ELISEO% 76.7; LYM% 14.8. 05/04 16:30 Order name: Magnesium; Complete Time: 18:01 cp 05/04 16:30 Order name: PT-INR; Complete Time: 17:13 cp 05/04 16:30 Order name: Troponin HS; Complete Time: 18:01 cp 05/04 18:02 Interpretation: Abnormal: Troponin HS 54.7. cp 05/04 16:30 Order name: PREGU; Complete Time: 17:13 cp 05/04 16:30 Order name: Urinalysis W/Microscopic; Complete Time: 17:13 cp 05/04 17:01 Order name: CBC Smear Scan; Complete Time: 17:13 EDMS 05/04 19:19 Order name: Troponin High Sensitivity: repeat \T\1930; Complete Time: 21:04 cp 05/04 16:30 Order name: XRAY Chest (1 view); Complete Time: 18:01 cp 05/04 17:14 Order name: CT Head Brain wo Cont; Complete Time: 18:01 cp 05/04 16:30 Order name: EKG; Complete Time: 16:31 cp 05/04 16:30 Order name: Cardiac monitoring; Complete Time: 16:30 cp 05/04 16:30 Order name: EKG - Nurse/Tech; Complete Time: 16:30 cp 05/04 16:30 Order name: IV Saline Lock; Complete Time: 16:41 cp 05/04 16:30 Order name: Labs collected and sent; Complete Time: 16:41 cp 05/04 16:30 Order name: O2 Per Protocol; Complete Time: 16:30 cp 05/04 16:30 Order name: O2 Sat Monitoring; Complete Time: 16:30 cp EC:40 Rate is 90 beats/min. Rhythm is regular. UT interval is normal. QRS interval is normal. cp QT interval is normal. T waves are Inverted in lead aVR. Interpreted by me. Reviewed by me. Administered Medications: 16:50 Drug: Ondansetron PO 4 mg Route: PO; kc6 18:46 Follow up: Response: No adverse reaction; Nausea is increased kc6 17:38 Drug: Ativan IVP 0.5 mg Route: IVP; Site: right antecubital; kc6 18:46 Follow up: Response: No adverse reaction; Anxiety decreased kc6 21:05 Drug: Ketorolac IVP 15 mg Route: IVP; Site: right antecubital; 3 21:34 Follow up: Response: No adverse reaction; Pain is decreased ha1 21:05 Drug: metoCLOPramide IVP 10 mg Route: IVP; Site: right antecubital; eh3 21:34 Follow up: Response: No adverse reaction ha1 21:05 Drug: diphenhydrAMINE IVP 25 mg Route: IVP; Site: right antecubital; eh3 21:34 Follow up: Response: No adverse reaction ha1 Disposition Summary: 05/04/22 21:10 Discharge Ordered Location: Home cp Problem: new cp Symptoms: have improved cp Condition: Stable cp Diagnosis - Palpitations cp - Headache cp - Anemia, unspecified cp - Nausea cp Followup: cp - With: Private Physician - When: 2 - 3 days - Reason: Recheck today's complaints Discharge Instructions: - Discharge Summary Sheet cp - Anemia cp - General Headache Without Cause cp - Nausea, Adult cp - Palpitations cp - Ambulatory Cardiac Monitoring cp Forms: - Medication Reconciliation Form cp - Thank You Letter cp - Antibiotic Education cp - Prescription Opioid Use cp Prescriptions: - Fioricet 50-300-40 mg Oral capsule - take 1 capsule by ORAL route every 4-6 hours; 20 capsule; Refills: 0, Product cp Selection Permitted - Ferrous Sulfate 325 mg (65 mg Iron) Oral Tablet - take 1 tablet by ORAL route every 12 hours; 60 tablet; Refills: 0, Product cp Selection Permitted - Zofran 4 mg Oral Tablet - take 1 tablet by ORAL route every 12 hours As needed; 20 tablet; Refills: 0, cp Product Selection Permitted Signatures: Dispatcher [employer] Soha Harris RN RN aa5 Bal Sagastume PA PA cp Hall, Erin, RN RN eh3 Flaquita Lui RN RN kc6 Nicolasa Franks RN ha1 Corrections: (The following items were deleted from the chart) 03/24 11:28 11:26 Constitutional: Negative for fever, cp cp
[2022-05-04 21:40] VITALS: TEMP 98.2; O2SAT 100
[2022-05-04 21:46] VITALS: BP 133/57
--- NOTE | 2022-05-05 13:41 | EKG ---
Test Date: 2022-05-04 Test Time: 16:32:05 Dynamometer Tester: ADRI MEASUREMENT RESULTS: Intervals: Rate: 90 WV: 156 QRSD: 98 QT: 390 QTc: 477 [place]: P: 65 WV: 156 QRS: 43 T: 45 INTERPRETIVE STATEMENTS: Normal sinus rhythm Normal ECG Compared to ECG 04/08/2022 14:05:15 Left ventricular hypertrophy no longer present Prolonged QT interval no longer present Electronically Signed On 05-05-22 13:38:42 CDT by Sony Guillermo
== END 2022-05-04 21:35 | disposition home or self-care (01) ==
LOC: ER 15:44
DX: R00.2 Palpitations (principal); R51.9 Headache, unspecified; D64.9 Anemia, unspecified; R11.0 Nausea
CPT/HCPCS: 36415; 70450; 71045; 80048; 81001; 81025; 83735; 84484; 85025; 85610; 93005; 96374; 96375; 99284; J1200; J2765; Q0162

== ENCOUNTER 2022-07-18 17:04 | Emergency (ER) | payer SELFPAY ==
--- OUTSIDE RECORDS SUMMARY | 2022-07-18 17:11 | XMS REPORT | Continuity of Care Document ---
:1975 Author Organization [facility] t Address [address] [place] [address] [address] [place] [address] Care Team Providers Name Role Phone Pcp, Patient Does Not Have A Primary Care Physician +1-000-0 00-0000 UNA HESTER Attending Clinician Unavailable UNA HESTER Attending Clinician Unavailable Doctor Unassigned, [place] Attending Clinician Unavailable Pathology Attending Clinician Unavailable Pcp-Lab Attending Clinician Unavailable DERRELL DIAS Attending Clinician Unavailable IGOR SAAVEDRA Attending Clinician [...] Clinician Unavailable Halima Connor DO Attending Clinician ROBERT NOWAK Attending Clinician Unavailable Patti Hutton Attending Clinician CRISTO MARTINEZ Attending Clinician Unavailable PRISCA MORAES Attending Clinician Unavailable KATH DELGADO Attending Clinician Unavailable ANGELA RAUSCH Attending Clinician Unavailable Payers Payer Name Policy Type Policy Number Effective Date Expiration Date S [facility] MEDICAID SSI PENDING 2021 PENDING 00:00:00 Problems Condition Condition Condition Status Onset Resolution Last Treating Co mments Source Name Details Category Date Date Treatment Clinician Date No known No known Disease Unive rs active active ity of problems problems [facility] [place] [facility] Allergies, Adverse Reactions, Alerts Allergy Allergy Status Severity Reaction(s) Onset Inactive Treating Comm ents Source Name Type Date Date Clinician Sulfa Propensi Active Hives Univers (Sulfona ty to 4-24 ity of mide adverse 00:00: [place] Antibiot reaction 00 Medica l ics) s Branch SULFA Drug Active Hives Univers (SULFONA Class 4-24 ity of MIDE 00:00: [place] ANTIBIOT 00 Medical ICS) Branch Social History Social Habit Start Date Stop Date Quantity Comments Source Exposure to 2022-02-05 2022-02-15 Not sure [facility] SARS-CoV-2 00:00:00 08:57:00 [facility] (event) [place] Tobacco use and 2021-08-24 2021-08-24 Smokeless tobacco Un iversity of exposure 00:00:00 00:00:00 non-user [facility] [place] [facility] Sex Assigned At [birth year] Universit y of 00:00:00 00:00:00 [facility] [place] [facility] Smoking Status Start Date Stop Date Source Never smoked tobacco [facility] Medications Ordered Filled Start Stop Current Ordering Indication Dosage Frequency Signature Comments Components Source Medication Medication Date Date Medication? Clinician (SIG) Name Name clonazePAM Yes [id number] Take 1 U nivers 1 mg tablet 5-24 tablet by ity of 00:00: mouth [place] 00 twice Medical daily as Branch needed for anxiety. DULoxetine Yes [id number] 60mg Take 1 U nivers 60 mg 5-09 capsule by ity of capsule 00:00: mouth in [place] [address] the [facility] morning [place] and 1 capsule in the evening. lithium 2022-0 Yes [id number] 900mg Take 2 Uni vers carbonate 5-09 tablets by ity of CR 450 mg 00:00[place] bedtime. Medica l Branch DULoxetine 2022-0 Yes [id number] 60mg Take 1 U nivers 60 mg 5-09 capsule by ity of capsule 00:00: mouth in [place] [address] the [facility] morning Branch and 1 capsule in the evening. lithium 2022-0 Yes [id number] 900mg Take 2 Uni vers carbonate 5-09 tablets by ity of CR 450 mg 00:00: [place] [facility] D[facility]-0 Yes [id number] 60mg Take 1 U nivers 60 mg 5-09 capsule by ity of capsule 00:00: mouth in [place] [address] the [facility] morning [place] and 1 capsule in the evening. lithium 2022-0 Yes [id number] 900mg Take 2 Uni vers carbonate 5-09 tablets by ity of CR 450 mg 00:00: [place] [facility]. [facility] DUL[facility] 2022-0 Yes [id number] 60mg Take 1 U nivers 60 mg 3-09 capsule by ity of capsule 00:00: mouth in [place] [address] the [facility] and 1 capsule in the evening. clonazePAM 2022-0 Yes [id number] Take 1 U nivers 1 mg tablet 3-09 tablet by ity of 00:00: mouth [place] [address] twice Medical daily as Branch needed for anxiety. lamoTRIgine 2022-0 Yes [id number] 100mg Take 1 Univers 100 mg 3-09 tablet by ity of tablet 00:00: mouth in [place] [address] the [facility] and 1 tablet in the evening. traZODone 2022-0 Yes [id number] 50mg Take 1 U nivers 50 mg 3-09 tablet by ity of tablet 00:00: mouth at [place] [address] bedtime. Medical May cut Branch tablet in half. lithium 2022-0 Yes [id number] 900mg Take 2 Uni vers carbonate 3-09 tablets by ity of CR 450 mg 00:00: [place] [facility]. [facility] DUL[facility] 2022-0 Yes [id number] 60mg Take 1 U nivers 60 mg 3-09 capsule by ity of capsule 00:00: mouth in [place] 00 the Medical morning Branch and 1 capsule in the evening. clonazePAM 3-0 Yes [id number] Take 1 U nivers 1 mg tablet 3-09 tablet by ity of 00:00: mouth [place] 00 twice Medical daily as Branch needed for anxiety. lamoTRIgine 3-0 Yes [id number] 100mg Take 1 Univers 100 mg 3-09 tablet by ity of tablet 00:00: mouth in [place] 00 the Medical morning Branch and 1 tablet in the evening. traZODone 3-0 Yes [id number] 50mg Take 1 U nivers 50 mg 3-09 tablet by ity of tablet 00:00: mouth at [place] 00 bedtime. Medical May cut Branch tablet in half. lithium 2022-0 Yes [id number] 900mg Take 2 Uni vers carbonate 3-09 tablets by ity of CR 450 mg 00:00: mouth at [facility] s SR tablet 00 bedtime. Medica l Branch clonazePAM 2022-0 Yes [id number] Take 1 U nivers 1 mg tablet 3-09 tablet by ity of 00:00: mouth [place] 00 twice Medical daily as Branch needed for anxiety. lamoTRIgine 2022-0 Yes [id number] 100mg Take 1 Univers 100 mg 3-09 tablet by ity of tablet 00:00: mouth in [place] 00 the Medical morning Branch and 1 tablet in the evening. traZODone 3-0 Yes [id number] 50mg Take 1 U nivers 50 mg 3-09 tablet by ity of tablet 00:00: mouth at [place] [address] bedtime. Medical May cut Branch tablet in half. clonazePAM 3-0 Yes [id number] Take 1 U nivers 1 mg tablet 3-09 tablet by ity of 00:00: mouth [place] 00 twice Medical daily as Branch needed for anxiety. lamoTRIgine 3-0 Yes [id number] 100mg Take 1 Univers 100 mg 3-09 tablet by ity of tablet 00:00: mouth in [place] 00 the Medical morning Branch and 1 tablet in the evening. traZODone 2023-0 Yes [id number] 50mg Take 1 U nivers 50 mg 3-09 tablet by ity of tablet 00:00: mouth at [place] [address] bedtime. Medical May cut Branch tablet in half. lamoTRIgine 2023-0 Yes [id number] 100mg Take 1 [facility] 100 mg 3-09 tablet by ity of tablet 00:00: mouth in [place] 00 the Medical morning Branch and 1 tablet in the evening. traZODone 2022-0 Yes [id number] 50mg Take 1 U nivers 50 mg 3-09 tablet by ity of tablet 00:00: mouth at [place] 00 bedtime. Medical May cut Branch tablet in half. clonazePAM 2022- No [id number] Take 1 Univers 1 mg tablet 04-2024 tablet by it y of 00:00: 00:00 mouth [place] 00 :00 twice Medical daily as Branch needed for anxiety. DULoxetine 2022- No [id number] 60mg Take 1 Univers 60 mg 3- 05-06 capsule by ity of capsule 00:00: 00:00 mouth in [place] 00 :00 the Medical morning Branch and 1 capsule in the evening. lithium 2022-2022- No [id number] 900mg Take 2 Un cristhian carbonate 3- 05-06 tablets by ity of CR 450 mg 00:00: 00:00 mouth at [place] tablet 00 :00 bedtime. Medica l Branch DULoxetine 2022- No [id number] 60mg Take 1 Univers 60 mg - 05-06 capsule by ity of capsule 00:00: 00:00 mouth in [place] 00 :00 the Medical morning Branch and 1 capsule in the evening. lithium 2022-2022- No [id number] 900mg Take 2 Un cristhian carbonate 3- 05-06 tablets by ity of CR 450 mg 00:00: 00:00 mouth at [place] tablet 00 :00 bedtime. Medica l Branch DULoxetine 2022- No [id number] 60mg Take 1 Univers 60 mg - 05-06 capsule by ity of capsule 00:00: 00:00 mouth in [place] 00 :00 the Medical morning Branch and 1 capsule in the evening. lithium 2022-2022- No [id number] 900mg Take 2 Un cristhian carbonate 3-09 05-06 tablets by ity of CR 450 mg 00:00: 00:00 mouth at [place] tablet 00 :00 bedtime. Medica l Branch lamoTRIgine 2022-0 Yes [id number] 100mg Take 1 Univers 100 mg 1-26 tablet by ity of tablet 00:00: mouth in [place] 00 the [facility] morning [place] and 1 tablet in the evening. lamoTRIgine 2023-0 Yes [id number] 100mg Take 1 Univers 100 mg 1-26 tablet by ity of tablet 00:00: mouth in [place] 00 the [facility] morning [place] and 1 tablet in the evening. lamoTRIgine 2023-0 Yes [id number] 100mg Take 1 [facility] 100 mg 1-26 tablet by ity of tablet 00:00: mouth in [place] 00 the [facility] morning [place] and 1 tablet in the evening. lamoTRIgine 3-0 Yes [id number] 100mg Take 1 Univers 100 mg 1-26 tablet by ity of tablet 00:00: mouth in [place] 00 the [facility] morning [place] and 1 tablet in the evening. lamoTRIgine 3-0 2023- No [id number] 100mg Take 1 Univers 100 mg 1-26 03-09 tablet by ity of tablet 00:00: 00:00 mouth in [place] 00 :00 the [facility] and 1 tablet in the evening. lamoTRIgine 3-0 2023- No [id number] 100mg Take 1 Univers 100 mg 1-26 03-09 tablet by ity of tablet 00:00: 00:00 mouth in [place] 00 :00 the [facility] and 1 tablet in the evening. DULoxetine 3-0 Yes [id number] 60mg Take 1 U nivers 60 mg 1-04 capsule by ity of capsule 00:00: mouth in [place] [address] the [facility] and 1 capsule in the evening. lamoTRIgine 3-0 Yes [id number] 100mg Take 1 Univers 100 mg 1-04 tablet by ity of tablet 00:00: mouth in [place] [address] the [facility] and 1 tablet in the evening. traZODone 3-0 Yes [id number] 50mg Take 1 U nivers 50 mg 1-04 tablet by ity of tablet 00:00: mouth at [place] 00 bedtime. Medical May cut Branch tablet in half. clonazePAM 3-0 Yes [id number] Take 1 U nivers 1 mg tablet 1-04 tablet by ity of 00:00: mouth [place] 00 twice Medical daily as Branch needed for anxiety. lithium 600 2023-0 Yes [id number] 600mg Take 1 Univers mg capsule 1-04 capsule by ity of 00:00: mouth in [place] 00 the Medical morning Branch and 1 capsule in the evening. DULoxetine 3-0 Yes [id number] 60mg Take 1 U nivers 60 mg 1-04 capsule by ity of capsule 00:00: mouth in [place] 00 the Medical morning Branch and 1 capsule in the evening. lamoTRIgine 3-0 Yes [id number] 100mg Take 1 Univers 100 mg 1-04 tablet by ity of tablet 00:00: mouth in [place] 00 the Medical morning Branch and 1 tablet in the evening. traZODone 3-0 Yes [id number] 50mg Take 1 U nivers 50 mg 1-04 tablet by ity of tablet 00:00: mouth at [place] [address] bedtime. Medical May cut Branch tablet in half. clonazePAM 3-0 Yes [id number] Take 1 U nivers 1 mg tablet 1-04 tablet by ity of 00:00: mouth [place] 00 twice Medical daily as Branch needed for anxiety. lithium 3-0 Yes [id number] 900mg Take 2 Uni vers carbonate 1-04 tablets by ity of CR 450 mg 00:00: [place] 00 bedtime. Medica l Branch DULoxetine 3-0 Yes [id number] 60mg Take 1 U nivers 60 mg 1-04 capsule by ity of capsule 00:00: mouth in [place] 00 the Medical morning Branch and 1 capsule in the evening. lamoTRIgine 3-0 Yes [id number] 100mg Take 1 Univers 100 mg 1-04 tablet by ity of tablet 00:00: mouth in [place] 00 the Medical morning Branch and 1 tablet in the evening. traZODone 3-0 Yes [id number] 50mg Take 1 U nivers 50 mg 1-04 tablet by ity of tablet 00:00: mouth at [place] 00 bedtime. Medical May cut Branch tablet in half. clonazePAM 2023-0 Yes [id number] Take 1 U nivers 1 mg tablet 1-04 tablet by ity of 00:00: mouth [place] 00 twice Medical daily as Branch needed for anxiety. lithium 2023-0 Yes [id number] 900mg Take 2 Uni vers carbonate 1-04 tablets by ity of CR 450 mg 00:00: [place] tablet 00 bedtime. Medica l Branch DULoxetine 3-0 Yes [id number] 60mg Take 1 U nivers 60 mg 1-04 capsule by ity of capsule 00:00: mouth in [place] 00 the Medical morning Branch and 1 capsule in the evening. lamoTRIgine 2023-0 Yes [id number] 100mg Take 1 Univers 100 mg 1-04 tablet by ity of tablet 00:00: mouth in [place] 00 the Medical morning Branch and 1 tablet in the evening. traZODone 2023-0 Yes [id number] 50mg Take 1 U nivers 50 mg 1-04 tablet by ity of tablet 00:00: mouth at [place] 00 bedtime. Medical May cut Branch tablet in half. clonazePAM 2023-0 Yes [id number] Take 1 U nivers 1 mg tablet 1-04 tablet by ity of 00:00: mouth [place] 00 twice Medical daily as Branch needed for anxiety. lithium 3-0 Yes [id number] 900mg Take 2 Uni vers carbonate 1-04 tablets by ity of CR 450 mg 00:00: [place] tablet 00 bedtime. Medica l Branch DULoxetine 3-0 Yes [id number] 60mg Take 1 U nivers 60 mg 1-04 capsule by ity of capsule 00:00: mouth in [place] 00 the Medical morning Branch and 1 capsule in the evening. lamoTRIgine 3-0 Yes [id number] 100mg Take 1 Univers 100 mg 1-04 tablet by ity of tablet 00:00: mouth in [place] [address] the Medical morning Branch and 1 tablet in the evening. traZODone 3-0 Yes [id number] 50mg Take 1 U nivers 50 mg 1-04 tablet by ity of tablet 00:00: mouth at [place] [address] bedtime. Medical May cut Branch tablet in half. clonazePAM 3-0 Yes [id number] Take 1 U nivers 1 mg tablet 1-04 tablet by ity of 00:00: mouth [place] [address] twice Medical daily as Branch needed for anxiety. lithium 2023-0 Yes [id number] 900mg Take 2 Uni vers carbonate 1-04 tablets by ity of CR 450 mg 00:00: [place] tablet 00 bedtime. Medica l Branch DULoxetine 2023-0 Yes [id number] 60mg Take 1 U nivers 60 mg 1-04 capsule by ity of capsule 00:00: mouth in [place] 00 the Medical morning Branch and 1 capsule in the evening. lamoTRIgine 2023-0 Yes [id number] 100mg Take 1 Univers 100 mg 1-04 tablet by ity of tablet 00:00: mouth in [place] 00 the Medical morning Branch and 1 tablet in the evening. traZODone 2022-0 Yes [id number] 50mg Take 1 U nivers 50 mg 1-04 tablet by ity of tablet 00:00: mouth at [place] 00 bedtime. Medical May cut Branch tablet in half. clonazePAM 2022-0 Yes [id number] Take 1 U nivers 1 mg tablet 1-04 tablet by ity of 00:00: mouth [place] 00 twice Medical daily as Branch needed for anxiety. lithium 2022-0 Yes [id number] 900mg Take 2 Uni vers carbonate 1-04 tablets by ity of CR 450 mg 00:00: [place] tablet 00 bedtime. Medica l Branch DULoxetine 2022-0 Yes [id number] 60mg Take 1 U nivers 60 mg 1-04 capsule by ity of capsule 00:00: mouth in [place] 00 the Medical morning Branch and 1 capsule in the evening. traZODone 2022-0 Yes [id number] 50mg Take 1 U nivers 50 mg 1-04 tablet by ity of tablet 00:00: mouth at [place] 00 bedtime. Medical May cut Branch tablet in half. clonazePAM 2022-0 Yes [id number] Take 1 U nivers 1 mg tablet 1-04 tablet by ity of 00:00: mouth [place] 00 twice Medical daily as Branch needed for anxiety. lithium 2022-0 Yes 900mg Take 2 Uni vers carbonate 1-04 tablets by ity of CR 450 mg 00:00: [place] SR tablet 00 bedtime. Medica l Branch DULoxetine 2022-0 Yes [id number] 60mg Take 1 U nivers 60 mg 1-04 capsule by ity of capsule 00:00: mouth in [place] 00 the Medical morning Branch and 1 capsule in the evening. traZODone 2022-0 Yes [id number] 50mg Take 1 U nivers 50 mg 1-04 tablet by ity of tablet 00:00: mouth at [place] 00 bedtime. Medical May cut Branch tablet in half. clonazePAM 2022-0 Yes [id number] Take 1 U nivers 1 mg tablet 1-04 tablet by ity of 00:00: mouth [place] 00 twice Medical daily as Branch needed for anxiety. lithium 2022-0 Yes [id number] 900mg Take 2 Uni vers carbonate 1-04 tablets by ity of CR 450 mg 00:00: [place] tablet 00 bedtime. Medica l Branch DULoxetine 2022-0 Yes [id number] 60mg Take 1 U nivers 60 mg 1-04 capsule by ity of capsule 00:00: mouth in [place] 00 the Medical morning Branch and 1 capsule in the evening. traZODone 2022-0 Yes [id number] 50mg Take 1 U nivers 50 mg 1-04 tablet by ity of tablet 00:00: mouth at [place] 00 bedtime. Medical May cut Branch tablet in half. clonazePAM 2022-0 Yes [id number] Take 1 U nivers 1 mg tablet 1-04 tablet by ity of 00:00: mouth [place] 00 twice Medical daily as Branch needed for anxiety. lithium 2022-0 Yes [id number] 900mg Take 2 Uni vers carbonate 1-04 tablets by ity of CR 450 mg 00:00: [place] SR tablet 00 bedtime. Medica l Branch DULoxetine 2022-0 Yes [id number] 60mg Take 1 U nivers 60 mg 1-04 capsule by ity of capsule 00:00: mouth in [place] 00 the Medical morning Branch and 1 capsule in the evening. traZODone 2022-0 Yes [id number] 50mg Take 1 U nivers 50 mg 1-04 tablet by ity of tablet 00:00: mouth at [place] 00 bedtime. Medical May cut Branch tablet in half. clonazePAM 2022-0 Yes [id number] Take 1 U nivers 1 mg tablet 1-04 tablet by ity of 00:00: mouth [place] 00 twice Medical daily as Branch needed for anxiety. lithium 2022-0 Yes [id number] 900mg Take 2 Uni vers carbonate 1-04 tablets by ity of CR 450 mg 00:00: [place] SR tablet 00 bedtime. Medica l Branch traZODone 2022-0 2022- No [id number] 50mg Take 1 Univers 50 mg 1-04 03-09 tablet by ity of tablet 00:00: 00:00 mouth at [place] 00 :00 bedtime. Medical May cut Branch tablet in half. lithium 2022-0 2022- No [id number] 900mg Take 2 Un cristhian carbonate 1-04 03-09 tablets by ity of CR 450 mg 00:00: 00:00 mouth at [place] tablet 00 :00 bedtime. Medica l Branch traZODone 2022-2022- No [id number] 50mg Take 1 Univers 50 mg 02-15 tablet by ity of tablet 00:00: 00:00 mouth at [place] 00 :00 bedtime. Medical May cut Branch tablet in half. lithium 2022-0 2022- No [id number] 900mg Take 2 Un cristhian carbonate 02-15 tablets by ity of CR 450 mg 00:00: 00:00 mouth at [place] tablet 00 :00 bedtime. Medica l Branch DULoxetine 2022-2022- No [id number] 60mg Take 1 Univers 60 mg 02-15 capsule by ity of capsule 00:00: 00:00 mouth in [place] 00 :00 the Medical morning Branch and 1 capsule in the evening. clonazePAM 2022-2022- No [id number] Take 1 Univers 1 mg tablet 02-15 tablet by it y of 00:00: 00:00 mouth [place] 00 :00 twice Medical daily as Branch needed for anxiety. DULoxetine 2022-0 2022- No [id number] 60mg Take 1 Univers 60 mg 02-15 capsule by ity of capsule 00:00: 00:00 mouth in [place] 00 :00 the Medical morning Branch and 1 capsule in the evening. clonazePAM 2022-0 2022- No [id number] Take 1 Univers 1 mg tablet 02-15 tablet by it y of 00:00: 00:00 mouth [place] 00 :00 twice Medical daily as Branch needed for anxiety. lamoTRIgine 2022-0 2022- No [id number] 100mg Take 1 [facility] 100 mg 02-15 tablet by ity of tablet 00:00: 00:00 mouth in [place] 00 :00 the Medical morning Branch and 1 tablet in the evening. lamoTRIgine 2022-0 2022- No [id number] 100mg Take 1 [facility] 100 mg 02-15 tablet by ity of tablet 00:00: 00:00 mouth in [place] 00 :00 the Medical morning Branch and 1 tablet in the evening. lamoTRIgine 2022-0 2022- No [id number] 100mg Take 1 [facility] 100 mg 02-15 tablet by ity of tablet 00:00: 00:00 mouth in [place] 00 :00 the Medical morning Branch and 1 tablet in the evening. lamoTRIgine 2023-0 3- No [id number] 100mg Take 1 [facility] 100 mg 02-15 tablet by ity of tablet 00:00: 00:00 mouth in [place] 00 :00 the Medical morning Branch and 1 tablet in the evening. lithium 600 2023-0 3- No [id number] 600mg Take 1 Univers mg capsule 02-15 capsule by it y of 00:00: 00:00 mouth in [place] 00 :00 the Medical morning Branch and 1 capsule in the evening. lithium 600 2023-0 3- No [id number] 600mg Take 1 [facility] mg capsule 02-15 capsule by it y of 00:00: 00:00 mouth in [place] 00 :00 the Medical morning Branch and 1 capsule in the evening. lithium 600 3-0 3- No [id number] 600mg Take 1 Univers mg capsule 02-15 capsule by it y of 00:00: 00:00 mouth in [place] 00 :00 the Medical morning Branch and 1 capsule in the evening. lithium 600 3-0 3- No [id number] 600mg Take 1 [facility] mg capsule 02-15 capsule by it y of 00:00: 00:00 mouth in [place] 00 :00 the Medical morning Branch and 1 capsule in the evening. lithium 600 2023-0 3- No [id number] 600mg Take 1 [facility] mg capsule 02-15 capsule by it y of 00:00: 00:00 mouth in [place] 00 :00 the Medical morning Branch and 1 capsule in the evening. lithium 600 2023-0 3- No [id number] 600mg Take 1 Univers mg capsule 02-15 capsule by it y of 00:00: 00:00 mouth in [place] 00 :00 the Medical morning Branch and 1 capsule in the evening. lithium 600 2023-0 3- No [id number] 600mg Take 1 [facility] mg capsule 02-15 capsule by it y of 00:00: 00:00 mouth in [place] 00 :00 the Medical morning Branch and 1 capsule in the evening. lithium 600 2023-0 2023- No [id number] 600mg Take 1 Univers mg capsule 02-15 capsule by it y of 00:00: 00:00 mouth in [place] 00 :00 the Medical morning Branch and 1 capsule in the evening. DULoxetine 2021-02 Yes [id number] 60mg Take 1 U nivers 60 mg 2-28 capsule by ity of capsule 00:00: mouth in [place] 00 the Medical morning Branch and 1 capsule in the evening. DULoxetine 2021-02- No [id number] 60mg Take 1 Univers 60 mg 2-11 03- capsule by ity of capsule 00:00: 00:00 mouth in [place] 00 :00 the Medical morning Branch and 1 capsule in the evening. DULoxetine 2021-02- No [id number] 60mg Take 1 Univers 60 mg -11 03- capsule by ity of capsule 00:00: 00:00 mouth in [place] 00 :00 the Medical morning Branch and 1 capsule in the evening. DULoxetine 2021-02- No [id number] 60mg Take 1 Univers 60 mg -11 03- capsule by ity of capsule 00:00: 00:00 mouth in [place] 00 :00 the Medical morning Branch and 1 capsule in the evening. DULoxetine 2021-02- No [id number] 60mg Take 1 Univers 60 mg 2-11 03- capsule by ity of capsule 00:00: 00:00 mouth in [place] 00 :00 the Medical morning Branch and 1 capsule in the evening. DULoxetine 2021-02- No [id number] 60mg Take 1 Univers 60 mg 2-11 03- capsule by ity of capsule 00:00: 00:00 mouth in [place] 00 :00 the Medical morning Branch and 1 capsule in the evening. DULoxetine 2021-023- No [id number] 60mg Take 1 Univers 60 mg 2-28 - capsule by ity of capsule 00:00: 00:00 mouth in [place] 00 :00 the Medical morning Branch and 1 capsule in the evening. DULoxetine 2021-02- No [id number] 60mg Take 1 [facility] 60 mg 2-28 - capsule by ity of capsule 00:00: 00:00 mouth in [place] 00 :00 the Medical morning Branch and 1 capsule in the evening. DULoxetine 2021-02- No [id number] 60mg Take 1 [facility] 60 mg 2-28 01-04 capsule by ity of capsule 00:00: 00:00 mouth in [place] 00 :00 the Medical morning Branch and 1 capsule in the evening. lamoTRIgine 2021- Yes [id number] 100mg Take 1 [facility] 100 mg 2-22 tablet by ity of tablet 00:00: mouth in [place] 00 the Medical morning Branch and 1 tablet in the evening. lamoTRIgine 2021- Yes [id number] 100mg Take 1 [facility] 100 mg 2-22 tablet by ity of tablet 00:00: mouth in [place] 00 the Medical morning Branch and 1 tablet in the evening. lamoTRIgine 2021-02- No [id number] 100mg Take 1 [facility] 100 mg 2-22 -04 tablet by ity of tablet 00:00: 00:00 mouth in [place] 00 :00 the Medical morning Branch and 1 tablet in the evening. lamoTRIgine 2021-2022- No [id number] 100mg Take 1 [facility] 100 mg 2-22 -04 tablet by ity of tablet 00:00: 00:00 mouth in [place] 00 :00 the Medical morning Branch and 1 tablet in the evening. lamoTRIgine 2021-2022- No [id number] 100mg Take 1 [facility] 100 mg 2-22 -04 tablet by ity of tablet 00:00: 00:00 mouth in [place] 00 :00 the Medical morning Branch and 1 tablet in the evening. lamoTRIgine 2021-2022- No [id number] 100mg Take 1 [facility] 100 mg 2-22 -04 tablet by ity of tablet 00:00: 00:00 mouth in [place] 00 :00 the Medical morning Branch and 1 tablet in the evening. lamoTRIgine 2021-3- No [id number] 100mg Take 1 [facility] 100 mg 2-22 01-04 tablet by ity of tablet 00:00: 00:00 mouth in [place] 00 :00 the Medical morning Branch and 1 tablet in the evening. lamoTRIgine 2021-3- No [id number] 100mg Take 1 [facility] 100 mg 2-22 01-04 tablet by ity of tablet 00:00: 00:00 mouth in [place] 00 :00 the Medical morning Branch and 1 tablet in the evening. lamoTRIgine 2021-3- No [id number] 100mg Take 1 [facility] 100 mg 2-22 01-04 tablet by ity of tablet 00:00: 00:00 mouth in [place] 00 :00 the Medical morning Branch and 1 tablet in the evening. lamoTRIgine 2021-02- No [id number] 100mg Take 1 [facility] 100 mg 04-05 tablet by ity of tablet 00:00: 00:00 mouth in [place] 00 :00 the Medical morning Branch and 1 tablet in the evening. traZODone 2021-02 Yes [id number] 50mg Take 1 [facility] 50 mg 1-30 tablet by [facility] tablet 00:00: mouth at [place] 00 bedtime. Medical May cut Branch tablet in half. lamoTRIgine 2021-02 Yes [id number] 100mg Take 1 [facility] 100 mg 1-30 tablet by [facility] tablet 00:00: mouth in [place] 00 the Medical morning Branch and 1 tablet in the evening. traZODone 2021-02 Yes [id number] 50mg Take 1 [facility] 50 mg 1-30 tablet by [facility] tablet 00:00: mouth at [place] 00 bedtime. Medical May cut Branch tablet in half. lamoTRIgine 2021-02 Yes [id number] 100mg Take 1 [facility] 100 mg 1-30 tablet by [facility] tablet 00:00: mouth in [place] 00 the Medical morning Branch and 1 tablet in the evening. traZODone 2021-02 Yes [id number] 50mg Take 1 [facility] 50 mg 1-30 tablet by [facility] of tablet 00:00: mouth at [place] [address] bedtime. Medical May cut Branch tablet in half. lamoTRIgine 2021-02 Yes [id number] 100mg Take 1 [facility] 100 mg 1-30 tablet by [facility] tablet 00:00: mouth in [place] 00 the Medical morning Branch and 1 tablet in the evening. traZODone 2021-02 Yes [id number] 50mg Take 1 [facility] 50 mg 1-30 tablet by [facility] tablet 00:00: mouth at [place] 00 bedtime. Medical May cut Branch tablet in half. traZODone 2021-02 Yes [id number] 50mg Take 1 [facility] 50 mg 1-30 tablet by [facility] tablet 00:00: mouth at [place] [address] bedtime. Medical May cut Branch tablet in half. traZODone 2021-02- No [id number] 50mg Take 1 [facility] 50 mg 1-30 01-04 tablet by [facility] tablet 00:00: 00:00 mouth at [place] 00 :00 bedtime. Medical May cut Branch tablet in half. traZODone 2021-02- No [id number] 50mg Take 1 [facility] 50 mg 1-30 -04 tablet by [facility] tablet 00:00: 00:00 mouth at [place] 00 :00 bedtime. Medical May cut Branch tablet in half. traZODone 2021-02- No [id number] 50mg Take 1 [facility] 50 mg 1-30 -04 tablet by [facility] of tablet 00:00: 00:00 mouth at [place] 00 :00 bedtime. Medical May cut Branch tablet in half. traZODone 2021-02- No [id number] 50mg Take 1 [facility] 50 mg 1-30 -04 tablet by [facility] of tablet 00:00: 00:00 mouth at [place] 00 :00 bedtime. Medical May cut Branch tablet in half. traZODone 2021-02- No [id number] 50mg Take 1 [facility] 50 mg 1-30 -04 tablet by [facility] of tablet 00:00: 00:00 mouth at [place] 00 :00 bedtime. Medical May cut Branch tablet in half. traZODone 2021-02- No [id number] 50mg Take 1 [facility] 50 mg 1-30 -04 tablet by [facility] of tablet 00:00: 00:00 mouth at [place] 00 :00 bedtime. Medical May cut Branch tablet in half. traZODone 2021-02- No [id number] 50mg Take 1 [facility] 50 mg 1-30 -04 tablet by [facility] of tablet 00:00: 00:00 mouth at [place] 00 :00 bedtime. Medical May cut Branch tablet in half. traZODone 2021-02- No [id number] 50mg Take 1 [facility] 50 mg 1-30 -04 tablet by [facility] of tablet 00:00: 00:00 mouth at [place] 00 :00 bedtime. Medical May cut Branch tablet in half. lamoTRIgine 2021-02- No [id number] 100mg Take 1 [facility] 100 mg 1-30 12-22 tablet by [facility] tablet 00:00: 00:00 mouth in [place] 00 :00 the Medical morning Branch and 1 tablet in the evening. lamoTRIgine 2021-02- No [id number] 100mg Take 1 [facility] 100 mg 1-30 12-22 tablet by [facility] of tablet 00:00: 00:00 mouth in [place] 00 :00 the Medical morning Branch and 1 tablet in the evening. lamoTRIgine 2021-02- No [id number] 100mg Take 1 [facility] 100 mg 1-30 12-22 tablet by [facility] of tablet 00:00: 00:00 mouth in [place] 00 :00 the Medical morning Branch and 1 tablet in the evening. lamoTRIgine 2021-02- No [id number] 100mg Take 1 [facility] 100 mg 1-30 12-22 tablet by [facility] of tablet 00:00: 00:00 mouth in [place] 00 :00 the Medical morning Branch and 1 tablet in the evening. lamoTRIgine 2021-02- No [id number] 100mg Take 1 [facility] 100 mg 1-30 12-22 tablet by [facility] tablet 00:00: 00:00 mouth in [place] 00 :00 the Medical morning Branch and 1 tablet in the evening. DULoxetine 2021-02 Yes [id number] 60mg Take 1 [facility] 60 mg 1-28 capsule by [facility] of capsule 00:00: mouth in [place] 00 the Medical morning Branch and 1 capsule in the evening. clonazePAM 2021-02 Yes [id number] Take 1 [facility] 1 mg tablet 1-28 tablet by [facility] of 00:00: mouth [place] 00 twice Medical daily as Branch needed for anxiety. DULoxetine 2021-02 Yes [id number] 60mg Take 1 [facility] 60 mg 1-28 capsule by [facility] of capsule 00:00: mouth in [place] 00 the Medical morning Branch and 1 capsule in the evening. clonazePAM 2021-02 Yes [id number] Take 1 [facility] 1 mg tablet 1-28 tablet by [facility] of 00:00: mouth [place] 00 twice Medical daily as Branch needed for anxiety. DULoxetine 2021-02 Yes [id number] 60mg Take 1 [facility] 60 mg 1-28 capsule by [facility] of capsule 00:00: mouth in [place] 00 the Medical morning Branch and 1 capsule in the evening. clonazePAM 2021-02 Yes [id number] Take 1 [facility] 1 mg tablet 1-28 tablet by [facility] of 00:00: mouth [place] 00 twice Medical daily as Branch needed for anxiety. DULoxetine 2021-02 Yes [id number] 60mg Take 1 [facility] 60 mg 1-28 capsule by [facility] of capsule 00:00: mouth in [place] 00 the Medical morning Branch and 1 capsule in the evening. clonazePAM 2021-02 Yes [id number] Take 1 [facility] 1 mg tablet 1-28 tablet by [facility] of 00:00: mouth [place] 00 twice Medical daily as Branch needed for anxiety. DULoxetine 2021-02 Yes [id number] 60mg Take 1 [facility] 60 mg 1-28 capsule by [facility] of capsule 00:00: mouth in [place] 00 the Medical morning Branch and 1 capsule in the evening. clonazePAM 2021-02 Yes [id number] Take 1 [facility] 1 mg tablet 1-28 tablet by [facility] of 00:00: mouth [place] 00 twice Medical daily as Branch needed for anxiety. DULoxetine 2021-02 Yes [id number] 60mg Take 1 [facility] 60 mg 1-28 capsule by [facility] of capsule 00:00: mouth in [place] 00 the Medical morning Branch and 1 capsule in the evening. clonazePAM 2021-02 Yes [id number] Take 1 [facility] 1 mg tablet 1-28 tablet by [facility] of 00:00: mouth [place] 00 twice Medical daily as Branch needed for anxiety. clonazePAM 2021-02 Yes [id number] Take 1 [facility] 1 mg tablet 1-28 tablet by [facility] of 00:00: mouth [place] 00 twice Medical daily as Branch needed for anxiety. clonazePAM 2021-02- No [id number] Take 1 [facility] 1 mg tablet 03-11- tablet by it y of 00:00: 00:00 mouth [place] 00 :00 twice Medical daily as Branch needed for anxiety. clonazePAM 2021-02- No [id number] Take 1 [facility] 1 mg tablet 03-11- tablet by it y of 00:00: 00:00 mouth [place] 00 :00 twice Medical daily as Branch needed for anxiety. clonazePAM 2021-02- No [id number] Take 1 [facility] 1 mg tablet 03-11- tablet by it y of 00:00: 00:00 mouth [place] 00 :00 twice Medical daily as Branch needed for anxiety. clonazePAM 2021-02- No [id number] Take 1 [facility] 1 mg tablet 03-11- tablet by it y of 00:00: 00:00 mouth [place] 00 :00 twice Medical daily as Branch needed for anxiety. clonazePAM 2021-02- No [id number] Take 1 [facility] 1 mg tablet 03-11 tablet by it y of 00:00: 00:00 mouth [place] 00 :00 twice Medical daily as Branch needed for anxiety. clonazePAM 2021-02- No [id number] Take 1 [facility] 1 mg tablet 03-11- tablet by it y of 00:00: 00:00 mouth [place] 00 :00 twice Medical daily as Branch needed for anxiety. clonazePAM 2021-02- No [id number] Take 1 [facility] 1 mg tablet 03-11 tablet by it y of 00:00: 00:00 mouth [place] 00 :00 twice Medical daily as Branch needed for anxiety. clonazePAM 2021-02- No [id number] Take 1 [facility] 1 mg tablet 03-11 tablet by it y of 00:00: 00:00 mouth [place] 00 :00 twice Medical daily as Branch needed for anxiety. DULoxetine 2021-02- No [id number] 60mg Take 1 [facility] 60 mg 1-28 12-27 capsule by [facility] of capsule 00:00: 00:00 mouth in [place] 00 :00 the Medical morning Branch and 1 capsule in the evening. DULoxetine 2021-02- No [id number] 60mg Take 1 [facility] 60 mg 1-28 12-27 capsule by [facility] of capsule 00:00: 00:00 mouth in [place] 00 :00 the Medical morning Branch and 1 capsule in the evening. DULoxetine 2021-02- No [id number] 60mg Take 1 [facility] 60 mg 1-28 12-27 capsule by [facility] of capsule 00:00: 00:00 mouth in [place] 00 :00 the Medical morning Branch and 1 capsule in the evening. DULoxetine 2021-02- No [id number] 60mg Take 1 [facility] 60 mg 1-28 12-27 capsule by [facility] of capsule 00:00: 00:00 mouth in [place] 00 :00 the Medical morning Branch and 1 capsule in the evening. DULoxetine 2021-02- No [id number] 60mg Take 1 [facility] 60 mg 1-28 12-27 capsule by [facility] of capsule 00:00: 00:00 mouth in [place] 00 :00 the Medical morning Branch and 1 capsule in the evening. traZODone 2021-02 Yes [id number] 50mg Take 1 [facility] 50 mg 1-22 tablet by [facility] of tablet 00:00: mouth at [place] 00 bedtime. Medical May cut Branch tablet in half. traZODone 2021-02 Yes [id number] 50mg Take 1 [facility] 50 mg 1-22 tablet by [facility] of tablet 00:00: mouth at [place] 00 bedtime. Medical May cut Branch tablet in half. traZODone 2021-02 Yes [id number] 50mg Take 1 [facility] 50 mg 1-22 tablet by [facility] of tablet 00:00: mouth at [place] 00 bedtime. Medical May cut Branch tablet in half. traZODone 2021-02- No [id number] 50mg Take 1 [facility] 50 mg 1-22 11-30 tablet by [facility] of tablet 00:00: 00:00 mouth at [place] 00 :00 bedtime. Medical May cut Branch tablet in half. traZODone 2021-02- No [id number] 50mg Take 1 [facility] 50 mg 1-22 11-30 tablet by [facility] of tablet 00:00: 00:00 mouth at [place] 00 :00 bedtime. Medical May cut Branch tablet in half. traZODone 2021-02- No [id number] 50mg Take 1 [facility] 50 mg 1-22 11-30 tablet by [facility] of tablet 00:00: 00:00 mouth at [place] 00 :00 bedtime. Medical May cut Branch tablet in half. traZODone 2021-02- No [id number] 50mg Take 1 [facility] 50 mg 1-22 11-30 tablet by [facility] of tablet 00:00: 00:00 mouth at [place] 00 :00 bedtime. Medical May cut Branch tablet in half. traZODone 2021-02- No [id number] 50mg Take 1 [facility] 50 mg 1-22 11-30 tablet by [facility] of tablet 00:00: 00:00 mouth at [place] 00 :00 bedtime. Medical May cut Branch tablet in half. DULoxetine 2021-02 Yes [id number] 60mg Take 1 [facility] 60 mg 0-25 capsule by [facility] of capsule 00:00: mouth in [place] 00 the Medical morning Branch and 1 capsule in the evening. DULoxetine 2021-02 Yes [id number] 60mg Take 1 [facility] 60 mg 0-25 capsule by [facility] of capsule 00:00: mouth in [place] 00 the Medical morning Branch and 1 capsule in the evening. DULoxetine 2021-02 Yes [id number] 60mg Take 1 [facility] 60 mg 0-25 capsule by [facility] of capsule 00:00: mouth in [place] 00 the Medical morning Branch and 1 capsule in the evening. DULoxetine 2021-02- No [id number] 60mg Take 1 [facility] 60 mg 0-25 11-28 capsule by [facility] of capsule 00:00: 00:00 mouth in [place] 00 :00 the Medical morning Branch and 1 capsule in the evening. DULoxetine 2021-02- No [id number] 60mg Take 1 [facility] 60 mg 0-25 11-28 capsule by [facility] of capsule 00:00: 00:00 mouth in [place] 00 :00 the [facility] morning Branch and 1 capsule in the evening. DULoxetine 2021-02- No [id number] 60mg Take 1 [facility] 60 mg 0-25 11-28 capsule by [facility] of capsule 00:00: 00:00 mouth in [place] 00 :00 the [facility] morning Branch and 1 capsule in the evening. DULoxetine 2021-02- No [id number] 60mg Take 1 [facility] 60 mg 0-25 11-28 capsule by ity of capsule 00:00: 00:00 mouth in [place] 00 :00 the [facility] morning Branch and 1 capsule in the evening. DULoxetine 2021-02- No [id number] 60mg Take 1 [facility] 60 mg 0-25 11-28 capsule by ity of capsule 00:00: 00:00 mouth in [place] 00 :00 the [facility] and 1 capsule in the evening. clonazePAM 2021-02 Yes [id number] Take 1 [facility] n[facility] 1 mg tablet 0-20 tablet by ity of 00:00: mouth [place] 00 twice Medical daily as Branch needed for anxiety. lithium 600 2021-02 Yes [id number] 600mg Take 1 [facility] mg capsule 0-20 capsule by ity of 00:00: mouth in [place] 00 the [facility] morning [place] and 1 capsule in the evening. lamoTRIgine 2021-02 Yes [id number] 50mg Take 2 [facility] 25 mg 0-20 tablets by ity of tablet 00:00: mouth in [place] [address] the [facility] morning Branch and 2 tablets in the evening. clonazePAM 2021-02 Yes [id number] Take 1 [facility] n[facility] 1 mg tablet 0-20 tablet by ity of 00:00: mouth [place] [address] twice Medical daily as Branch needed for anxiety. lithium 600 2021-02 Yes [id number] 600mg Take 1 [facility] mg capsule 0-20 capsule by ity of 00:00: mouth in [place] [address] the [facility] morning Branch and 1 capsule in the evening. lamoTRIgine 2021-02 Yes [id number] 50mg Take 2 [facility] 25 mg 0-20 tablets by [facility]y of tablet 00:00: mouth in [place] [address] the [facility] morning Branch and 2 tablets in the evening. clonazePAM 2021-02 Yes [id number] Take 1 [facility] n[facility] 1 mg tablet 0-20 tablet by ity of 00:00: mouth [place] [address] twice Medical daily as Branch needed for anxiety. lithium 600 2021-02 Yes [id number] 600mg Take 1 [facility] mg capsule 0-20 capsule by ity of 00:00: mouth in [place] [address] the [facility] morning [place] and 1 capsule in the evening. lamoTRIgine 2021-02 Yes [id number] 50mg Take 2 [facility] 25 mg 0-20 tablets by [facility]y of tablet 00:00: mouth in [place] [address] the [facility] morning [place] and 2 tablets in the evening. lithium 600 2021-02 Yes [id number] 600mg Take 1 [facility] mg capsule 0-20 capsule by ity of 00:00: mouth in [place] [address] the [facility] morning [place] and 1 capsule in the evening. lamoTRIgine 2021-02 Yes [id number] 50mg Take 2 [facility] 25 mg 0-20 tablets by ity of tablet 00:00: mouth in [place] [address] the [facility] morning [place] and 2 tablets in the evening. lithium 600 2021-02 Yes [id number] 600mg Take 1 [facility] mg capsule 0-20 capsule by ity of 00:00: mouth in [place] [address] the [facility] morning [place] and 1 capsule in the evening. lamoTRIgine 2021- Yes [id number] 50mg Take 2 [facility] 25 mg 0-20 tablets by [facility] of tablet 00:00: mouth in [place] [address] the [facility] morning [place] and 2 tablets in the evening. lithium 600 2021-02 Yes [id number] 600mg Take 1 [facility] mg capsule 0-20 capsule by ity of 00:00: mouth in [place] [address] the [facility] morning [place] and 1 capsule in the evening. lithium 600 2021-02 Yes [id number] 600mg Take 1 [facility] mg capsule 0-20 capsule by ity of 00:00: mouth in [place] 00 the Medical morning Branch and 1 capsule in the evening. lithium 600 2021-02 Yes [id number] 600mg Take 1 [facility] mg capsule 0-20 capsule by ity of 00:00: mouth in [place] 00 the Medical morning Branch and 1 capsule in the evening. lithium 600 2021-02 Yes [id number] 600mg Take 1 [facility] mg capsule 0-20 capsule by ity of 00:00: mouth in [place] 00 the Medical morning Branch and 1 capsule in the evening. lithium 600 2021-02 Yes [id number] 600mg Take 1 [facility] mg capsule 0-20 capsule by ity of 00:00: mouth in [place] 00 the Medical morning Branch and 1 capsule in the evening. lithium 600 2021-02- No [id number] 600mg Take 1 [facility] mg capsule 0-20 01-04 capsule by it y of 00:00: 00:00 mouth in [place] 00 :00 the Medical morning Branch and 1 capsule in the evening. lithium 600 2021-02- No [id number] 600mg Take 1 [facility] mg capsule 0-20 01-04 capsule by it y of 00:00: 00:00 mouth in [place] 00 :00 the Medical morning Branch and 1 capsule in the evening. lithium 600 2021-02- No [id number] 600mg Take 1 [facility] mg capsule 0-20 01-04 capsule by it y of 00:00: 00:00 mouth in [place] 00 :00 the Medical morning Branch and 1 capsule in the evening. lithium 600 2021-2022- No [id number] 600mg Take 1 [facility] mg capsule 0-20 01-04 capsule by it y of 00:00: 00:00 mouth in [place] 00 :00 the Medical morning Branch and 1 capsule in the evening. lithium 600 2021-02- No [id number] 600mg Take 1 [facility] mg capsule 0-20 01-04 capsule by it y of 00:00: 00:00 mouth in [place] 00 :00 the Medical morning Branch and 1 capsule in the evening. lithium 600 2021-02- No [id number] 600mg Take 1 [facility] mg capsule 0-20 01-04 capsule by it y of 00:00: 00:00 mouth in [place] 00 :00 the Medical morning Branch and 1 capsule in the evening. lithium 600 2021-02- No [id number] 600mg Take 1 [facility] mg capsule 0-20 01-04 capsule by it y of 00:00: 00:00 mouth in [place] 00 :00 the Medical morning Branch and 1 capsule in the evening. lithium 600 2021-02- No [id number] 600mg Take 1 [facility] mg capsule 0-20 01-04 capsule by it y of 00:00: 00:00 mouth in [place] 00 :00 the Medical morning Branch and 1 capsule in the evening. lamoTRIgine 2021-02- No [id number] 50mg Take 2 [facility] 25 mg 0-20 11-30 tablets by ity of tablet 00:00: 00:00 mouth in [place] 00 :00 the Medical morning Branch and 2 tablets in the evening. lamoTRIgine 2021-2021- No [id number] 50mg Take 2 [facility] 25 mg 0-20 11-30 tablets by ity of tablet 00:00: 00:00 mouth in [place] 00 :00 the Medical morning Branch and 2 tablets in the evening. lamoTRIgine 2021-02- No [id number] 50mg Take 2 [facility] 25 mg 0-20 11-30 tablets by ity of tablet 00:00: 00:00 mouth in [place] 00 :00 the Medical morning Branch and 2 tablets in the evening. lamoTRIgine 2021-02- No [id number] 50mg Take 2 [facility] 25 mg 0-20 11-30 tablets by ity of tablet 00:00: 00:00 mouth in [place] 00 :00 the Medical morning Branch and 2 tablets in the evening. lamoTRIgine 2021-02- No [id number] 50mg Take 2 [facility] 25 mg 0-20 11-30 tablets by ity of tablet 00:00: 00:00 mouth in [place] 00 :00 the Medical morning Branch and 2 tablets in the evening. clonazePAM 2021-02- No [id number] Take 1 [facility] 1 mg tablet 0-20 11-28 tablet by it y of 00:00: 00:00 mouth [place] 00 :00 twice Medical daily as Branch needed for anxiety. clonazePAM 2021-2021- No [id number] Take 1 [facility] 1 mg tablet 0-20 11-28 tablet by it y of 00:00: 00:00 mouth [place] 00 :00 twice Medical daily as Branch needed for anxiety. clonazePAM 2021-02- No [id number] Take 1 [facility] 1 mg tablet 0-20 -28 tablet by it y of 00:00: 00:00 mouth [place] 00 :00 twice Medical daily as Branch needed for anxiety. clonazePAM 2021-02- No [id number] Take 1 [facility] 1 mg tablet 0-20 11-28 tablet by it y of 00:00: 00:00 mouth [place] 00 :00 twice Medical daily as Branch needed for anxiety. clonazePAM 2021-02- No [id number] Take 1 [facility] 1 mg tablet 0-20 -28 tablet by it y of 00:00: 00:00 mouth [place] 00 :00 twice Medical daily as Branch needed for anxiety. lamoTRIgine 2021- Yes [id number] 50mg Take 2 [facility] 25 mg 8-26 tablets by ity of tablet 00:00: mouth in [place] 00 the Medical morning Branch and 2 tablets in the evening. lamoTRIgine 2021- No [id number] 50mg Take 2 [facility] 25 mg 8-26 10-19 tablets by ity of tablet 00:00: 00:00 mouth in [place] 00 :00 the Medical morning Branch and 2 tablets in the evening. lamoTRIgine 2021-2021- No [id number] 50mg Take 2 [facility] 25 mg 8-26 10-19 tablets by ity of tablet 00:00: 00:00 mouth in [place] 00 :00 the Medical morning Branch and 2 tablets in the evening. clonazePAM 2021-0 Yes [id number] Take no [facility] 1 mg tablet 8-25 more than ity of 00:00: 1 mg twice [place] 00 daily as Medical needed for Branch anxiety lithium 600 2021-0 Yes [id number] 600mg Take 1 [facility] mg capsule 8-25 capsule by ity of 00:00: mouth in [place] 00 the Medical morning Branch and 1 capsule in the evening. clonazePAM 2021-2021- No [id number] Take no [facility] 1 mg tablet 8-25 10-19 more than it y of 00:00: 00:00 1 mg twice [place] 00 :00 daily as Medical needed for Branch anxiety lithium 600 2021-0 2021- No [id number] 600mg Take 1 [facility] mg capsule 8-25 10-19 capsule by it y of 00:00: 00:00 mouth in [place] 00 :00 the Medical morning Branch and 1 capsule in the evening. clonazePAM 2021- No [id number] Take no [facility] 1 mg tablet 8-25 10-19 more than it y of 00:00: 00:00 1 mg twice [place] 00 :00 daily as Medical needed for Branch anxiety lithium 600 2021- No [id number] 600mg Take 1 [facility] mg capsule 8-25 10-19 capsule by it y of 00:00: 00:00 mouth in [place] 00 :00 the Medical morning Branch and 1 capsule in the evening. Lamotrigine 2021- No [id number] 50mg Take 1 [facility] 50 mg 8-25 08-26 tablet by ity of tablet 00:00: 00:00 mouth in [place] 00 :00 the [facility] morning Branch and 1 tablet in the evening. Lamotrigine 2021- No [id number] 50mg Take 1 [facility] 50 mg 8- 08-25 tablet by ity of tablet 00:00: 00:00 mouth in [place] 00 :00 the [facility] morning Branch and 1 tablet in the evening. DULoxetine 2021- Yes [id number] 60mg Take 1 [facility] nivers 60 mg 7-27 capsule by ity of capsule 00:00: mouth in [place] 00 the [facility] morning Branch and 1 capsule in the evening. DULoxetine 2021- No [id number] 60mg Take 1 [facility] 60 mg 7-27 10-24 capsule by ity of capsule 00:00: 00:00 mouth in [place] 00 :00 the [facility] morning Branch and 1 capsule in the evening. DULoxetine 2021- No [id number] 60mg Take 1 [facility] 60 mg 7-27 10-24 capsule by ity of capsule 00:00: 00:00 mouth in [place] 00 :00 the [facility] morning Branch and 1 capsule in the evening. DULoxetine 2021- No [id number] 60mg Take 1 [facility] 60 mg 7-27 10-24 capsule by ity of capsule 00:00: 00:00 mouth in [place] 00 :00 the Medical morning Branch and 1 capsule in the evening. Lamotrigine 2021-2021- No [id number] 50mg Take 1 [facility] 50 mg 7-18 08-11 tablet by [facility]y of tablet 00:00: 00:00 mouth in [place] 00 :00 the Medical morning Branch and 1 tablet in the evening. lithium 600 2021-0 2021- No [id number] 600mg Take 1 [facility] mg capsule 713 08-25 capsule by it y of 00:00: 00:00 mouth in [place] 00 :00 the Medical morning Branch and 1 capsule in the evening. traZODone 2021-0 Yes [id number] 50mg Take 1 [facility] 50 mg 6-28 tablet by [facility]y of tablet 00:00: mouth at [place] 00 bedtime. Medical May cut Branch tablet in half. DULoxetine 0 Yes [id number] 60mg Take 1 [facility] 60 mg 6-28 capsule by [facility]y of capsule 00:00: mouth 2 [place] [address] (two) Medical times Branch daily. traZODone 2021-0 Yes [id number] 50mg Take 1 [facility] n[facility] 50 mg 6-28 tablet by ity of tablet 00:00: mouth at [place] 00 bedtime. Medical May cut Branch tablet in half. DULoxetine 0 Yes [id number] 60mg Take 1 [facility] 60 mg 6-28 capsule by ity of capsule 00:00: mouth 2 [place] 00 (two) Medical times Branch daily. traZODone 0 Yes [id number] 50mg Take 1 [facility] 50 mg 6-28 tablet by ity of tablet 00:00: mouth at [place] [address] bedtime. Medical May cut Branch tablet in half. DULoxetine 0 Yes [id number] 60mg Take 1 [facility] nivers 60 mg 6-28 capsule by [facility]y of capsule 00:00: mouth 2 [place] 00 (two) Medical times Branch daily. DULoxetine 0 Yes [id number] 60mg Take 1 [facility] 60 mg 6-28 capsule by [facility]y of capsule 00:00: mouth 2 [place] 00 (two) Medical times Branch daily. traZODone 2021-0 2021- No [id number] 50mg Take 1 [facility] 50 mg 6-28 11-21 tablet by [facility]y of tablet 00:00: 00:00 mouth at [place] 00 :00 bedtime. Medical May cut Branch tablet in half. traZODone 2021-0 2021- No [id number] 50mg Take 1 [facility] 50 mg 6-28 11-21 tablet by ity of tablet 00:00: 00:00 mouth at [place] 00 :00 bedtime. Medical May cut Branch tablet in half. traZODone 2021- No [id number] 50mg Take 1 [facility] 50 mg 6-28 11-21 tablet by ity of tablet 00:00: 00:00 mouth at [place] 00 :00 bedtime. Medical May cut Branch tablet in half. traZODone 2021- No [id number] 50mg Take 1 [facility] 50 mg 6-28 11-21 tablet by ity of tablet 00:00: 00:00 mouth at [place] 00 :00 bedtime. Medical May cut Branch tablet in half. traZODone 2021- No [id number] 50mg Take 1 [facility] 50 mg 6-28 11-21 tablet by ity of tablet 00:00: 00:00 mouth at [place] 00 :00 bedtime. Medical May cut Branch tablet in half. clonazePAM 2021- No [id number] Take no [facility] 1 mg tablet 6-28 08-25 more than it y of 00:00: 00:00 1 mg twice [place] 00 :00 daily as Medical needed for Branch anxiety vitamin Yes [id number] 1000ug Take 1 U nivers B-12 1,000 4-11 tablet by ity of mcg tablet 00:00: mouth [place] 00 daily. Medical Branch cyanocobala Yes [id number] 1000ug 1 mL by [facility] min 1,000 4-11 Intramuscu ity of mcg/mL 00:00: lar route [place] injection 00 weekly. Medical Branch vitamin 2021-0 Yes [id number] 1000ug Take 1 U nivers B-12 1,000 4-11 tablet by ity of mcg tablet 00:00: mouth [place] 00 daily. Medical Branch cyanocobala 0 Yes [id number] 1000ug 1 mL by [facility] min 1,000 4-11 Intramuscu ity of mcg/mL 00:00: lar route [place] injection 00 weekly. Medical Branch vitamin 2021-0 Yes [id number] 1000ug Take 1 U nivers B-12 1,000 4-11 tablet by ity of mcg tablet 00:00: mouth [place] 00 daily. Medical Branch cyanocobala Yes [id number] 1000ug 1 mL by [facility] min 1,000 4-11 Intramuscu ity of mcg/mL 00:00: lar route [place] injection 00 weekly. [facility] vitamin 2-0 Yes [id number] 1000ug Take 1 U nivers B-12 1,000 4-11 tablet by ity of mcg tablet 00:00: mouth [place] 00 daily. [facility] cyanocobala 2021-0 Yes [id number] 1000ug 1 mL by [facility] min 1,000 4-11 [facility] of mcg/mL 00:00: lar route [place] injection 00 weekly. [facility] vitamin 2021-0 Yes [id number] 1000ug Take 1 U nivers B-12 1,000 4-11 tablet by ity of mcg tablet 00:00: mouth [place] 00 daily. [facility] cyanocobala 2021-0 Yes [id number] 1000ug 1 mL by [facility] min 1,000 4-11 [facility]y of mcg/mL 00:00: lar route [place] injection 00 weekly. [facility] vitamin 2021-0 Yes [id number] 1000ug Take 1 U nivers B-12 1,000 4-11 tablet by ity of mcg tablet 00:00: mouth [place] 00 daily. [facility] cyanocobala 2021-0 Yes [id number] 1000ug 1 mL by [facility] min 1,000 4-11 Intr[facility]cu ity of mcg/mL 00:00: lar route [place] injection 00 weekly. [facility] vitamin 2021-0 Yes [id number] 1000ug Take 1 U nivers B-12 1,000 4-11 tablet by ity of mcg tablet 00:00: mouth [place] 00 daily. [facility] cyanocobala 2021-0 Yes [id number] 1000ug 1 mL by [facility] min 1,000 4-11 Intr[facility]cu ity of mcg/mL 00:00: lar route [place] injection 00 weekly. [facility] vitamin 2021-0 Yes [id number] 1000ug Take 1 U nivers B-12 1,000 4-11 tablet by ity of mcg tablet 00:00: mouth [place] 00 daily. [facility] cyanocobala 2021-0 Yes [id number] 1000ug 1 mL by [facility] min 1,000 4-11 Intramuscu ity of mcg/mL 00:00: lar route [place] injection 00 weekly. [facility] vitamin 2-0 Yes [id number] 1000ug Take 1 U nivers B-12 1,000 4-11 tablet by ity of mcg tablet 00:00: mouth [place] 00 daily. [facility] cyanocobala 2021-0 Yes [id number] 1000ug 1 mL by [facility] min 1,000 4-11 Intr[facility]cu ity of mcg/mL 00:00: lar route [place] injection 00 weekly. [facility] vitamin 2021-0 Yes [id number] 1000ug Take 1 U nivers B-12 1,000 4-11 tablet by ity of mcg tablet 00:00: mouth [place] 00 daily. [facility] cyanocobala 2021-0 Yes [id number] 1000ug 1 mL by [facility] min 1,000 4-11 Intr[facility] ity of mcg/mL 00:00: lar route [place] injection 00 weekly. [facility] vitamin 2021-0 Yes [id number] 1000ug Take 1 U nivers B-12 1,000 4-11 tablet by ity of mcg tablet 00:00: mouth [place] 00 daily. [facility] cyanocobala 2021-0 Yes [id number] 1000ug 1 mL by [facility] min 1,000 4-11 Intr[facility]y of mcg/mL 00:00: lar route [place] injection 00 weekly. [facility] vitamin 2021-0 Yes [id number] 1000ug Take 1 U nivers B-12 1,000 4-11 tablet by ity of mcg tablet 00:00: mouth [place] 00 daily. [facility] cyanocobala 2021-0 Yes [id number] 1000ug 1 mL by [facility] min 1,000 4-11 Intr[facility]y of mcg/mL 00:00: lar route [place] injection 00 weekly. [facility] vitamin 2021-0 Yes [id number] 1000ug Take 1 U nivers B-12 1,000 4-11 tablet by ity of mcg tablet 00:00: mouth [place] 00 daily. [facility] cyanocobala 2021-0 Yes [id number] 1000ug 1 mL by [facility] min 1,000 4-11 Intr[facility]cu [facility]y of mcg/mL 00:00: lar route [place] injection 00 weekly. [facility] vitamin 2021-0 Yes [id number] 1000ug Take 1 U nivers B-12 1,000 4-11 tablet by ity of mcg tablet 00:00: mouth [place] 00 daily. [facility] cyanocobala 2021-0 Yes [id number] 1000ug 1 mL by [facility] min 1,000 4-11 Intr[facility]y of mcg/mL 00:00: lar route [place] injection 00 weekly. [facility] vitamin 2021-0 Yes [id number] 1000ug Take 1 [facility] nivers B-12 1,000 4-11 tablet by ity of mcg tablet 00:00: mouth [place] 00 daily. [facility] cyanocobala 2021-0 Yes [id number] 1000ug 1 mL by [facility] min 1,000 4-11 Intr[facility]y of mcg/mL 00:00: lar route [place] injection 00 weekly. [facility] vitamin 2021-0 Yes [id number] 1000ug Take 1 U nivers B-12 1,000 4-11 tablet by ity of mcg tablet 00:00: mouth [place] 00 daily. [facility] cyanocobala 2021-0 Yes [id number] 1000ug 1 mL by [facility] min 1,000 4-11 Intr[facility]y of mcg/mL 00:00: lar route [place] injection 00 weekly. [facility] vitamin 2021-0 Yes [id number] 1000ug Take 1 U nivers B-12 1,000 4-11 tablet by ity of mcg tablet 00:00: mouth [place] 00 daily. [facility] cyanocobala 2021-0 Yes [id number] 1000ug 1 mL by [facility] min 1,000 4-11 Intr[facility]y of mcg/mL 00:00: lar route [place] injection 00 weekly. [facility] vitamin 2021-0 Yes [id number] 1000ug Take 1 U nivers B-12 1,000 4-11 tablet by ity of mcg tablet 00:00: mouth [place] 00 daily. [facility] cyanocobala 2021-0 Yes [id number] 1000ug 1 mL by [facility] min 1,000 4-11 Intr[facility]y of mcg/mL 00:00: lar route [place] injection 00 weekly. [facility] vitamin 2021-0 Yes [id number] 1000ug Take 1 [facility] nivers B-12 1,000 4-11 tablet by ity of mcg tablet 00:00: mouth [place] 00 daily. [facility] cyanocobala 2021-0 Yes [id number] 1000ug 1 mL by [facility] min 1,000 4-11 Intr[facility]cu ity of mcg/mL 00:00: lar route [place] injection 00 weekly. [facility] vitamin 2021-0 Yes [id number] 1000ug Take 1 U nivers B-12 1,000 4-11 tablet by ity of mcg tablet 00:00: mouth [place] 00 daily. [facility] cyanocobala 2021-0 Yes [id number] 1000ug 1 mL by [facility] min 1,000 4-11 Intr[facility]y of mcg/mL 00:00: lar route [place] injection 00 weekly. [facility] vitamin 2021-0 Yes [id number] 1000ug Take 1 U nivers B-12 1,000 4-11 tablet by ity of mcg tablet 00:00: mouth [place] 00 daily. [facility] cyanocobala 2021-0 Yes [id number] 1000ug 1 mL by [facility] min 1,000 4-11 Intr[facility]cu [facility]y of mcg/mL 00:00: lar route [place] injection 00 weekly. [facility] vitamin 2021-0 Yes [id number] 1000ug Take 1 U nivers B-12 1,000 4-11 tablet by ity of mcg tablet 00:00: mouth [place] 00 daily. [facility] cyanocobala 2021-0 Yes [id number] 1000ug 1 mL by [facility] min 1,000 4-11 Intr[facility]y of mcg/mL 00:00: lar route [place] injection 00 weekly. [facility] vitamin 2021-0 Yes [id number] 1000ug Take 1 U nivers B-12 1,000 4-11 tablet by ity of mcg tablet 00:00: mouth [place] 00 daily. [facility] cyanocobala 2021-0 Yes [id number] 1000ug 1 mL by [facility] min 1,000 4-11 Intr[facility]y of mcg/mL 00:00: lar route [place] injection 00 weekly. [facility] vitamin 2021-0 Yes [id number] 1000ug Take 1 U nivers B-12 1,000 4-11 tablet by ity of mcg tablet 00:00: mouth [place] 00 daily. [facility] cyanocobala 2021-0 Yes [id number] 1000ug 1 mL by [facility] min 1,000 4-11 Intr[facility]y of mcg/mL 00:00: lar route [place] injection 00 weekly. [facility] vitamin 2021-0 Yes [id number] 1000ug Take 1 U nivers B-12 1,000 4-11 tablet by ity of mcg tablet 00:00: mouth [place] 00 daily. [facility] cyanocobala 2021-0 Yes [id number] 1000ug 1 mL by [facility] min 1,000 4-11 Intramuscu ity of mcg/mL 00:00: lar route [place] injection 00 weekly. [facility] vitamin 2021-0 Yes [id number] 1000ug Take 1 U nivers B-12 1,000 4-11 tablet by ity of mcg tablet 00:00: mouth [place] 00 daily. [facility] cyanocobala 2021-0 Yes [id number] 1000ug 1 mL by [facility] min 1,000 4-11 Intr[facility]cu ity of mcg/mL 00:00: lar route [place] injection 00 weekly. [facility] vitamin 2021-0 Yes [id number] 1000ug Take 1 U nivers B-12 1,000 4-11 tablet by ity of mcg tablet 00:00: mouth [place] 00 daily. [facility] cyanocobala 0 Yes [id number] 1000ug 1 mL by [facility] min 1,000 4-11 Intramuscu ity of mcg/mL 00:00: lar route [place] injection 00 weekly. [facility] losartan 0 Yes 20mg Take 20 mg [facility] vers potassium 4-05 by mouth. ity o f (LOSARTAN 09:24: [place] ORAL) [address] [place] [address] FUROSEMIDE 0 Yes 40mg Take 40 mg U nivers ORAL 4-05 by mouth ity of 09:24: daily. [address] losartan 0 Yes 20mg Take 20 mg [facility] vers potassium 4-05 by mouth. ity o f (LOSARTAN 09:24: [place] ORAL) [address] [place] [address] FUROSEMIDE 0 Yes 40mg Take 40 mg U nivers ORAL 4-05 by mouth ity of 09:24: daily. [address] losartan 0 Yes 20mg Take 20 mg [facility] vers potassium 4-05 by mouth. ity o f (LOSARTAN 09:24: [place] ORAL) [address] [place] [address] FUROSEMIDE 0 Yes 40mg Take 40 mg U nivers ORAL 4-05 by mouth ity of 09:24: daily. [address] losartan 0 Yes 20mg Take 20 mg [facility] vers potassium 4-05 by mouth. ity o f (LOSARTAN 09:24: [place] ORAL) [address] [place] [address] FUROSEMIDE 2021-0 Yes 40mg Take 40 mg U nivers ORAL 4-05 by mouth ity of 09:24: daily. [address] losartan 2021-0 Yes 20mg Take 20 mg [facility] vers potassium 4-05 by mouth. ity o f (LOSARTAN 09:24: [place] ORAL) [address] [place] [address] FUROSEMIDE 0 Yes 40mg Take 40 mg U nivers ORAL 4-05 by mouth ity of 09:24: daily. [address] losartan 2021-0 Yes 20mg Take 20 mg [facility] vers potassium 4-05 by mouth. ity o f (LOSARTAN 09:24: [place] ORAL) [address] [place] [address] FUROSEMIDE 0 Yes 40mg Take 40 mg U nivers ORAL 4-05 by mouth ity of 09:24: daily. [address] losartan 0 Yes 20mg Take 20 mg [facility] vers potassium 4-05 by mouth. ity o f (LOSARTAN 09:24: [place] ORAL) [address] [place] [address] FUROSEMIDE 0 Yes 40mg Take 40 mg U nivers ORAL 4-05 by mouth ity of 09:24: daily. [address] losartan 2021-0 Yes 20mg Take 20 mg [facility] vers potassium 4-05 by mouth. ity o f (LOSARTAN 09:24: [place] ORAL) [address] [place] [address] FUROSEMIDE 2021-0 Yes 40mg Take 40 mg U nivers ORAL 4-05 by mouth ity of 09:24: daily. [address] losartan 0 Yes 20mg Take 20 mg [facility] vers potassium 4-05 by mouth. ity o f (LOSARTAN 09:24: [place] ORAL) [address] [place] [address] FUROSEMIDE 0 Yes 40mg Take 40 mg U nivers ORAL 4-05 by mouth ity of 09:24: daily. [address] losartan 2021-0 Yes 20mg Take 20 mg [facility] vers potassium 4-05 by mouth. ity o f (LOSARTAN 09:24: [place] ORAL) [address] [place] [address] FUROSEMIDE 2021-0 Yes 40mg Take 40 mg U nivers ORAL 4-05 by mouth ity of 09:24: daily. [address] losartan 2021-0 Yes 20mg Take 20 mg [facility] vers potassium 4-05 by mouth. ity o f (LOSARTAN 09:24: [place] ORAL) [address] [place] [address] FUROSEMIDE 2021-0 Yes 40mg Take 40 mg U nivers ORAL 4-05 by mouth ity of 09:24: daily. [address] losartan 2021-0 Yes 20mg Take 20 mg [facility] vers potassium 4-05 by mouth. ity o f (LOSARTAN 09:24: [place] ORAL) [address] [place] [address] FUROSEMIDE 2021-0 Yes 40mg Take 40 mg U nivers ORAL 4-05 by mouth ity of 09:24: daily. [address] losartan 2021-0 Yes 20mg Take 20 mg [facility] vers potassium 4-05 by mouth. ity o f (LOSARTAN 09:24: [place] ORAL) [address] [place] [address] FUROSEMIDE 2021-0 Yes 40mg Take 40 mg U nivers ORAL 4-05 by mouth ity of 09:24: daily. [address] losartan 2021-0 Yes 20mg Take 20 mg [facility] vers potassium 4-05 by mouth. ity o f (LOSARTAN 09:24: [place] ORAL) [address] [place] [address] FUROSEMIDE 2021-0 Yes 40mg Take 40 mg U nivers ORAL 4-05 by mouth ity of 09:24: daily. [address] losartan 2021-0 Yes 20mg Take 20 mg [facility] vers potassium 4-05 by mouth. ity o f (LOSARTAN 09:24: [place] ORAL) [address] [place] [address] FUROSEMIDE 2021-0 Yes 40mg Take 40 mg U nivers ORAL 4-05 by mouth ity of 09:24: daily. [address] losartan 2021-0 Yes 20mg Take 20 mg [facility] vers potassium 4-05 by mouth. ity o f (LOSARTAN 09:24: [place] ORAL) [address] [place] [address] FUROSEMIDE 2021-0 Yes 40mg Take 40 mg U nivers ORAL 4-05 by mouth ity of 09:24: daily. [address] losartan 2021-0 Yes 20mg Take 20 mg [facility] vers potassium 4-05 by mouth. ity o f (LOSARTAN 09:24: [place] ORAL) [address] [place] [address] FUROSEMIDE 2021-0 Yes 40mg Take 40 mg U nivers ORAL 4-05 by mouth ity of 09:24: daily. [address] losartan 2021-0 Yes 20mg Take 20 mg [facility] vers potassium 4-05 by mouth. ity o f (LOSARTAN 09:24: [place] ORAL) [address] [place] [address] FUROSEMIDE 2021-0 Yes 40mg Take 40 mg U nivers ORAL 4-05 by mouth ity of 09:24: daily. [address] losartan 2021-0 Yes 20mg Take 20 mg [facility] vers potassium 4-05 by mouth. ity o f (LOSARTAN 09:24: [place] ORAL) [address] [place] [address] FUROSEMIDE 2021-0 Yes 40mg Take 40 mg U nivers ORAL 4-05 by mouth ity of 09:24: daily. [address] losartan 2021-0 Yes 20mg Take 20 mg [facility] vers potassium 4-05 by mouth. ity o f (LOSARTAN 09:24: [place] ORAL) [address] [place] [address] FUROSEMIDE 2021-0 Yes 40mg Take 40 mg U nivers ORAL 4-05 by mouth ity of 09:24: daily. [address] losartan 2021-0 Yes 20mg Take 20 mg [facility] vers potassium 4-05 by mouth. ity o f (LOSARTAN 09:24: [place] ORAL) [address] [place] [address] FUROSEMIDE 2021-0 Yes 40mg Take 40 mg U nivers ORAL 4-05 by mouth ity of 09:24: daily. [address] losartan 2021-0 Yes 20mg Take 20 mg [facility] vers potassium 4-05 by mouth. ity o f (LOSARTAN 09:24: [place] ORAL) [address] [place] [address] FUROSEMIDE 2021-0 Yes 40mg Take 40 mg U nivers ORAL 4-05 by mouth ity of 09:24: daily. [address] losartan 2021-0 Yes 20mg Take 20 mg [facility] vers potassium 4-05 by mouth. ity o f (LOSARTAN 09:24: [place] ORAL) [address] [place] [address] FUROSEMIDE 2021-0 Yes 40mg Take 40 mg U nivers ORAL 4-05 by mouth ity of 09:24: daily. [address] losartan 2021-0 Yes 20mg Take 20 mg [facility] vers potassium 4-05 by mouth. ity o f (LOSARTAN 09:24: [place] ORAL) [address] [place] [address] FUROSEMIDE 2021-0 Yes 40mg Take 40 mg U nivers ORAL 4-05 by mouth ity of 09:24: daily. [address] losartan 2021-0 Yes 20mg Take 20 mg [facility] vers potassium 4-05 by mouth. ity o f (LOSARTAN 09:24: [place] ORAL) [address] [place] [address] FUROSEMIDE 2021-0 Yes 40mg Take 40 mg U nivers ORAL 4-05 by mouth ity of 09:24: daily. [address] losartan 2021-0 Yes 20mg Take 20 mg [facility] vers potassium 4-05 by mouth. ity o f (LOSARTAN 09:24: [place] ORAL) [address] [place] [address] FUROSEMIDE 2021-0 Yes 40mg Take 40 mg U nivers ORAL 4-05 by mouth ity of 09:24: daily. [place] [address] Medical Branch losartan 2-0 Yes 20mg Take 20 mg [facility] vers potassium 4-05 by mouth. ity o f (LOSARTAN 09:24: [place] [address] Medical Branch FUROSEMIDE 2022-0 Yes 40mg Take 40 mg U nivers ORAL 4-05 by mouth ity of 09:24: daily. [place] [address] Medical Branch gabapentin 2022-0 Yes [id number] 300mg Take 1 [facility] 300 mg 4-05 capsule by ity of capsule 00:00: mouth 3 [place] (three) Medical times Branch daily. rizatriptan 2022-0 Yes [id number] 5mg Take 1 [facility] 5 mg 4-05 tablet by ity of disintegrat 00:00: mouth as [place] ing tablet 00 needed for Med ical Migraine Branch (Take 5mg at the beginning of the headache can repeat 2h after if headaches persists). May repeat in 2 hours if needed magnesium 2022-0 Yes [id number] 400mg Take 2 [facility] gluconate 4-05 tablets by ity of 200 mg 00:00: mouth 2 [place] tablet 00 (two) Medical times Branch daily. gabapentin 2022-0 Yes [id number] 300mg Take 1 [facility] 300 mg 4-05 capsule by ity of capsule 00:00: mouth 3 [place] (three) Medical times Branch daily. rizatriptan 2022-0 Yes [id number] 5mg Take 1 [facility] 5 mg 4-05 tablet by ity of disintegrat 00:00: mouth as [place] ing tablet 00 needed for Med ical Migraine Branch (Take 5mg at the beginning of the headache can repeat 2h after if headaches persists). May repeat in 2 hours if needed magnesium 2022-0 Yes [id number] 400mg Take 2 [facility] gluconate 4-05 tablets by ity of 200 mg 00:00: mouth 2 [place] tablet 00 (two) Medical times Branch daily. gabapentin 2022-0 Yes [id number] 300mg Take 1 [facility] 300 mg 4-05 capsule by ity of capsule 00:00: mouth 3 [place] (three) Medical times Branch daily. rizatriptan 2022-0 Yes [id number] 5mg Take 1 [facility] 5 mg 4-05 tablet by ity of disintegrat 00:00: mouth as [place] ing tablet 00 needed for Med ical Migraine Branch (Take 5mg at the beginning of the headache can repeat 2h after if headaches persists). May repeat in 2 hours if needed magnesium 2022-0 Yes [id number] 400mg Take 2 [facility] gluconate 4-05 tablets by ity of 200 mg 00:00: mouth 2 [place] tablet 00 (two) Medical times Branch daily. gabapentin 2022-0 Yes [id number] 300mg Take 1 [facility] 300 mg 4-05 capsule by ity of capsule 00:00: mouth 3 [place] 00 (three) Medical times Branch daily. rizatriptan 2022-0 Yes [id number] 5mg Take 1 [facility] 5 mg 4-05 tablet by ity of disintegrat 00:00: mouth as [place] ing tablet 00 needed for Med ical Migraine Branch (Take 5mg at the beginning of the headache can repeat 2h after if headaches persists). May repeat in 2 hours if needed magnesium 2022-0 Yes [id number] 400mg Take 2 [facility] gluconate 4-05 tablets by ity of 200 mg 00:00: mouth 2 [place] tablet 00 (two) Medical times Branch daily. gabapentin 2022-0 Yes [id number] 300mg Take 1 [facility] 300 mg 4-05 capsule by ity of capsule 00:00: mouth 3 [place] 00 (three) Medical times Branch daily. rizatriptan 2022-0 Yes [id number] 5mg Take 1 [facility] 5 mg 4-05 tablet by ity of disintegrat 00:00: mouth as [place] ing tablet 00 needed for Med ical Migraine Branch (Take 5mg at the beginning of the headache can repeat 2h after if headaches persists). May repeat in 2 hours if needed magnesium 2022-0 Yes [id number] 400mg Take 2 [facility] gluconate 4-05 tablets by ity of 200 mg 00:00: mouth 2 [place] tablet 00 (two) Medical times Branch daily. gabapentin 2022-0 Yes [id number] 300mg Take 1 [facility] 300 mg 4-05 capsule by ity of capsule 00:00: mouth 3 [place] 00 (three) Medical times Branch daily. rizatriptan 2022-0 Yes [id number] 5mg Take 1 [facility] 5 mg 4-05 tablet by ity of disintegrat 00:00: mouth as [place] tablet 00 needed for Med ical Migraine Branch (Take 5mg at the beginning of the headache can repeat 2h after if headaches persists). May repeat in 2 hours if needed magnesium 2022-0 Yes [id number] 400mg Take 2 [facility] gluconate 4-05 tablets by ity of 200 mg 00:00: mouth 2 [place] tablet 00 (two) Medical times Branch daily. gabapentin 2022-0 Yes [id number] 300mg Take 1 [facility] 300 mg 4-05 capsule by ity of capsule 00:00: mouth 3 [place] 00 (three) Medical times Branch daily. rizatriptan 2022-0 Yes [id number] 5mg Take 1 [facility] 5 mg 4-05 tablet by ity of disintegrat 00:00: mouth as [place] ing tablet 00 needed for Med ical Migraine Branch (Take 5mg at the beginning of the headache can repeat 2h after if headaches persists). May repeat in 2 hours if needed magnesium 2022-0 Yes [id number] 400mg Take 2 [facility] gluconate 4-05 tablets by ity of 200 mg 00:00: mouth 2 [place] tablet 00 (two) Medical times Branch daily. gabapentin 2022-0 Yes [id number] 300mg Take 1 [facility] 300 mg 4-05 capsule by ity of capsule 00:00: mouth 3 [place] 00 (three) Medical times Branch daily. rizatriptan 2022-0 Yes [id number] 5mg Take 1 [facility] 5 mg 4-05 tablet by ity of disintegrat 00:00: mouth as [place] ing tablet 00 needed for Med ical Migraine Branch (Take 5mg at the beginning of the headache can repeat 2h after if headaches persists). May repeat in 2 hours if needed magnesium 2022-0 Yes [id number] 400mg Take 2 [facility] gluconate 4-05 tablets by ity of 200 mg 00:00: mouth 2 [place] tablet 00 (two) Medical times Branch daily. gabapentin 2022-0 Yes [id number] 300mg Take 1 [facility] 300 mg 4-05 capsule by ity of capsule 00:00: mouth 3 [place] 00 (three) Medical times Branch daily. rizatriptan 2022-0 Yes [id number] 5mg Take 1 [facility] 5 mg 4-05 tablet by ity of disintegrat 00:00: mouth as [place] ing tablet 00 needed for Med ical Migraine Branch (Take 5mg at the beginning of the headache can repeat 2h after if headaches persists). May repeat in 2 hours if needed magnesium 2022-0 Yes [id number] 400mg Take 2 [facility] gluconate 4-05 tablets by ity of 200 mg 00:00: mouth 2 [place] tablet 00 (two) Medical times Branch daily. gabapentin 2022-0 Yes [id number] 300mg Take 1 [facility] 300 mg 4-05 capsule by ity of capsule 00:00: mouth 3 [place] 00 (three) Medical times Branch daily. rizatriptan 2022-0 Yes [id number] 5mg Take 1 [facility] 5 mg 4-05 tablet by ity of disintegrat 00:00: mouth as [place] ing tablet 00 needed for Med ical Migraine Branch (Take 5mg at the beginning of the headache can repeat 2h after if headaches persists). May repeat in 2 hours if needed magnesium 2022-0 Yes [id number] 400mg Take 2 [facility] gluconate 4-05 tablets by ity of 200 mg 00:00: mouth 2 [place] tablet 00 (two) Medical times Branch daily. gabapentin 2022-0 Yes [id number] 300mg Take 1 [facility] 300 mg 4-05 capsule by ity of capsule 00:00: mouth 3 [place] (three) Medical times Branch daily. rizatriptan 2022-0 Yes [id number] 5mg Take 1 [facility] 5 mg 4-05 tablet by ity of disintegrat 00:00: mouth as [place] tablet 00 needed for Med ical Migraine Branch (Take 5mg at the beginning of the headache can repeat 2h after if headaches persists). May repeat in 2 hours if needed magnesium 2022-0 Yes [id number] 400mg Take 2 [facility] gluconate 4-05 tablets by ity of 200 mg 00:00: mouth 2 [place] tablet 00 (two) Medical times Branch daily. gabapentin 2022-0 Yes [id number] 300mg Take 1 [facility] 300 mg 4-05 capsule by ity of capsule 00:00: mouth 3 [place] 00 (three) Medical times Branch daily. rizatriptan 2022-0 Yes [id number] 5mg Take 1 [facility] 5 mg 4-05 tablet by ity of disintegrat 00:00: mouth as [place] tablet 00 needed for Med ical Migraine Branch (Take 5mg at the beginning of the headache can repeat 2h after if headaches persists). May repeat in 2 hours if needed magnesium 2022-0 Yes [id number] 400mg Take 2 [facility] gluconate 4-05 tablets by ity of 200 mg 00:00: mouth 2 [place] tablet 00 (two) Medical times Branch daily. gabapentin 2022-0 Yes [id number] 300mg Take 1 [facility] 300 mg 4-05 capsule by ity of capsule 00:00: mouth 3 [place] (three) Medical times Branch daily. rizatriptan 2022-0 Yes [id number] 5mg Take 1 [facility] 5 mg 4-05 tablet by ity of disintegrat 00:00: mouth as [place] tablet 00 needed for Med ical Migraine Branch (Take 5mg at the beginning of the headache can repeat 2h after if headaches persists). May repeat in 2 hours if needed magnesium 2022-0 Yes [id number] 400mg Take 2 [facility] gluconate 4-05 tablets by ity of 200 mg 00:00: mouth 2 [place] tablet 00 (two) Medical times Branch daily. gabapentin 2022-0 Yes [id number] 300mg Take 1 [facility] 300 mg 4-05 capsule by ity of capsule 00:00: mouth 3 [place] (three) Medical times Branch daily. rizatriptan 2022-0 Yes [id number] 5mg Take 1 [facility] 5 mg 4-05 tablet by ity of disintegrat 00:00: mouth as [place] tablet 00 needed for Med ical Migraine Branch (Take 5mg at the beginning of the headache can repeat 2h after if headaches persists). May repeat in 2 hours if needed magnesium 2022-0 Yes [id number] 400mg Take 2 [facility] gluconate 4-05 tablets by ity of 200 mg 00:00: mouth 2 [place] tablet 00 (two) Medical times Branch daily. gabapentin 2022-0 Yes [id number] 300mg Take 1 [facility] 300 mg 4-05 capsule by ity of capsule 00:00: mouth 3 (three) Medical times Branch daily. rizatriptan 2022-0 Yes [id number] 5mg Take 1 [facility] 5 mg 4-05 tablet by ity of disintegrat 00:00: mouth as [place] ing tablet 00 needed for Med ical Migraine Branch (Take 5mg at the beginning of the headache can repeat 2h after if headaches persists). May repeat in 2 hours if needed magnesium 2022-0 Yes [id number] 400mg Take 2 [facility] gluconate 4-05 tablets by ity of 200 mg 00:00: mouth 2 [place] tablet 00 (two) Medical times Branch daily. gabapentin 2022-0 Yes [id number] 300mg Take 1 [facility] 300 mg 4-05 capsule by ity of capsule 00:00: mouth 3 [place] 00 (three) Medical times Branch daily. rizatriptan 2022-0 Yes [id number] 5mg Take 1 [facility] 5 mg 4-05 tablet by ity of disintegrat 00:00: mouth as [place] tablet 00 needed for Med ical Migraine Branch (Take 5mg at the beginning of the headache can repeat 2h after if headaches persists). May repeat in 2 hours if needed magnesium 2022-0 Yes [id number] 400mg Take 2 [facility] gluconate 4-05 tablets by ity of 200 mg 00:00: mouth 2 [place] tablet 00 (two) Medical times Branch daily. gabapentin 2022-0 Yes [id number] 300mg Take 1 [facility] 300 mg 4-05 capsule by ity of capsule 00:00: mouth 3 [place] (three) Medical times Branch daily. rizatriptan 2022-0 Yes [id number] 5mg Take 1 [facility] 5 mg 4-05 tablet by ity of disintegrat 00:00: mouth as [place] tablet 00 needed for Med ical Migraine Branch (Take 5mg at the beginning of the headache can repeat 2h after if headaches persists). May repeat in 2 hours if needed magnesium 2022-0 Yes [id number] 400mg Take 2 [facility] gluconate 4-05 tablets by ity of 200 mg 00:00: mouth 2 [place] tablet 00 (two) Medical times Branch daily. gabapentin 2022-0 Yes [id number] 300mg Take 1 [facility] 300 mg 4-05 capsule by ity of capsule 00:00: mouth 3 [place] 00 (three) Medical times Branch daily. rizatriptan 2022-0 Yes [id number] 5mg Take 1 Univers 5 mg 4-05 tablet by ity of disintegrat 00:00: mouth [place] tablet 00 needed for Med ical Migraine Branch (Take 5mg at the beginning of the headache can repeat 2h after if headaches persists). May repeat in 2 hours if needed magnesium 2022-0 Yes [id number] 400mg Take 2 Univers gluconate 4-05 tablets by ity of 200 mg 00:00: mouth 2 [place] tablet 00 (two) Medical times Branch daily. gabapentin 2022-0 Yes [id number] 300mg Take 1 [facility] 300 mg 4-05 capsule by ity of capsule 00:00: mouth 3 [place] (three) Medical times Branch daily. rizatriptan 2022-0 Yes [id number] 5mg Take 1 [facility] 5 mg 4-05 tablet by ity of disintegrat 00:00: mouth [place] tablet 00 needed for Med ical Migraine Branch (Take 5mg at the beginning of the headache can repeat 2h after if headaches persists). May repeat in 2 hours if needed magnesium 2022-0 Yes [id number] 400mg Take 2 Univers gluconate 4-05 tablets by ity of 200 mg 00:00: mouth 2 [place] tablet 00 (two) Medical times Branch daily. gabapentin 2022-0 Yes [id number] 300mg Take 1 [facility] 300 mg 4-05 capsule by ity of capsule 00:00: mouth 3 (three) Medical times Branch daily. rizatriptan 2022-0 Yes [id number] 5mg Take 1 [facility] 5 mg 4-05 tablet by ity of disintegrat 00:00: mouth [place] tablet 00 needed for Med ical Migraine Branch (Take 5mg at the beginning of the headache can repeat 2h after if headaches persists). May repeat in 2 hours if needed magnesium 2022-0 Yes [id number] 400mg Take 2 Univers gluconate 4-05 tablets by ity of 200 mg 00:00: mouth 2 [place] tablet 00 (two) Medical times Branch daily. gabapentin 2022-0 Yes [id number] 300mg Take 1 [facility] 300 mg 4-05 capsule by ity of capsule 00:00: mouth 3 (three) Medical times Branch daily. rizatriptan 2022-0 Yes [id number] 5mg Take 1 [facility] 5 mg 4-05 tablet by ity of disintegrat 00:00: mouth [place] tablet 00 needed for Med ical Migraine Branch (Take 5mg at the beginning of the headache can repeat 2h after if headaches persists). May repeat in 2 hours if needed magnesium 2022-0 Yes [id number] 400mg Take 2 Univers gluconate 4-05 tablets by ity of 200 mg 00:00: mouth 2 [place] tablet 00 (two) Medical times Branch daily. gabapentin 2022-0 Yes [id number] 300mg Take 1 [facility] 300 mg 4-05 capsule by ity of capsule 00:00: mouth 3 [place] (three) Medical times Branch daily. rizatriptan 2022-0 Yes [id number] 5mg Take 1 [facility] 5 mg 4-05 tablet by ity of disintegrat 00:00: mouth [place] tablet 00 needed for Med ical Migraine Branch (Take 5mg at the beginning of the headache can repeat 2h after if headaches persists). May repeat in 2 hours if needed magnesium 2022-0 Yes [id number] 400mg Take 2 Univers gluconate 4-05 tablets by ity of 200 mg 00:00: mouth 2 [place] tablet 00 (two) Medical times Branch daily. gabapentin 2022-0 Yes [id number] 300mg Take 1 [facility] 300 mg 4-05 capsule by ity of capsule 00:00: mouth 3 [place] 00 (three) Medical times Branch daily. rizatriptan 2022-0 Yes [id number] 5mg Take 1 [facility] 5 mg 4-05 tablet by ity of disintegrat 00:00: mouth [place] tablet 00 needed for Med ical Migraine Branch (Take 5mg at the beginning of the headache can repeat 2h after if headaches persists). May repeat in 2 hours if needed magnesium 2022-0 Yes [id number] 400mg Take 2 Univers gluconate 4-05 tablets by ity of 200 mg 00:00: mouth 2 [place] tablet 00 (two) Medical times Branch daily. gabapentin 2022-0 Yes [id number] 300mg Take 1 [facility] 300 mg 4-05 capsule by ity of capsule 00:00: mouth 3 [place] (three) Medical times Branch daily. rizatriptan 2022-0 Yes [id number] 5mg Take 1 [facility] 5 mg 4-05 tablet by ity of disintegrat 00:00: mouth [place] tablet 00 needed for Med ical Migraine Branch (Take 5mg at the beginning of the headache can repeat 2h after if headaches persists). May repeat in 2 hours if needed magnesium 2022-0 Yes [id number] 400mg Take 2 Univers gluconate 4-05 tablets by ity of 200 mg 00:00: mouth 2 [place] tablet 00 (two) Medical times Branch daily. gabapentin 2022-0 Yes [id number] 300mg Take 1 [facility] 300 mg 4-05 capsule by ity of capsule 00:00: mouth 3 [place] 00 (three) Medical times Branch daily. rizatriptan 2022-0 Yes [id number] 5mg Take 1 [facility] 5 mg 4-05 tablet by ity of disintegrat 00:00: mouth as [place] tablet 00 needed for Med ical Migraine Branch (Take 5mg at the beginning of the headache can repeat 2h after if headaches persists). May repeat in 2 hours if needed magnesium 2022-0 Yes [id number] 400mg Take 2 Univers gluconate 4-05 tablets by ity of 200 mg 00:00: mouth 2 [place] tablet 00 (two) Medical times Branch daily. gabapentin 2022-0 Yes [id number] 300mg Take 1 [facility] 300 mg 4-05 capsule by ity of capsule 00:00: mouth 3 [place] 00 (three) Medical times Branch daily. rizatriptan 2022-0 Yes [id number] 5mg Take 1 [facility] 5 mg 4-05 tablet by ity of disintegrat 00:00: mouth as [place] ing tablet 00 needed for Med ical Migraine Branch (Take 5mg at the beginning of the headache can repeat 2h after if headaches persists). May repeat in 2 hours if needed magnesium 2022-0 Yes [id number] 400mg Take 2 Univers gluconate 4-05 tablets by ity of 200 mg 00:00: mouth 2 [place] tablet 00 (two) Medical times Branch daily. gabapentin 2022-0 Yes [id number] 300mg Take 1 [facility] 300 mg 4-05 capsule by ity of capsule 00:00: mouth 3 [place] 00 (three) Medical times Branch daily. rizatriptan 2022-0 Yes [id number] 5mg Take 1 [facility] 5 mg 4-05 tablet by ity of disintegrat 00:00: mouth [place] tablet 00 needed for Med ical Migraine Branch (Take 5mg at the beginning of the headache can repeat 2h after if headaches persists). May repeat in 2 hours if needed magnesium 2022-0 Yes [id number] 400mg Take 2 Univers gluconate 4-05 tablets by ity of 200 mg 00:00: mouth 2 [place] tablet 00 (two) Medical times Branch daily. ondansetron 1-0 Yes [id number] 4mg Take 1 Univers (ZOFRAN 7-22 tablet by ity of ODT) 4 mg 00:00: mouth [place] disintegrat 00 every 8 Medic al ing tablet (eight) Branch hours as needed for Nausea and Vomiting (N/V). ondansetron 2021-0 Yes [id number] 4mg Take 1 Univers (ZOFRAN 7-22 tablet by ity of ODT) 4 mg 00:00: mouth [place] disintegrat 00 every 8 Medic al ing tablet (eight) Branch hours as needed for Nausea and Vomiting (N/V). ondansetron 2020-0 Yes [id number] 4mg Take 1 Univers (ZOFRAN 7-22 tablet by ity of ODT) 4 mg 00:00: mouth [place] disintegrat 00 every 8 Medic al ing tablet (eight) Branch hours as needed for Nausea and Vomiting (N/V). ondansetron 2020-0 Yes [id number] 4mg Take 1 Univers (ZOFRAN 7-22 tablet by ity of ODT) 4 mg 00:00: mouth [place] disintegrat 00 every 8 Medic al ing tablet (eight) Branch hours as needed for Nausea and Vomiting (N/V). ondansetron 2020-0 Yes [id number] 4mg Take 1 Univers (ZOFRAN 7-22 tablet by ity of ODT) 4 mg 00:00: mouth [place] disintegrat 00 every 8 Medic al ing tablet (eight) Branch hours as needed for Nausea and Vomiting (N/V). ondansetron 2020-0 Yes [id number] 4mg Take 1 Univers (ZOFRAN 7-22 tablet by ity of ODT) 4 mg 00:00: mouth [place] disintegrat 00 every 8 Medic al ing tablet (eight) Branch hours as needed for Nausea and Vomiting (N/V). ondansetron 2020-0 Yes [id number] 4mg Take 1 Univers (ZOFRAN 7-22 tablet by ity of ODT) 4 mg 00:00: mouth [place] disintegrat 00 every 8 Medic al ing tablet (eight) Branch hours as needed for Nausea and Vomiting (N/V). ondansetron 1-0 Yes [id number] 4mg Take 1 Univers (ZOFRAN 7-22 tablet by ity of ODT) 4 mg 00:00: mouth [place] disintegrat 00 every 8 Medic al ing tablet (eight) Branch hours as needed for Nausea and Vomiting (N/V). ondansetron 1-0 Yes [id number] 4mg Take 1 Univers (ZOFRAN 7-22 tablet by ity of ODT) 4 mg 00:00: mouth [place] disintegrat 00 every 8 Medic al ing tablet (eight) Branch hours as needed for Nausea and Vomiting (N/V). ondansetron 2020-0 Yes [id number] 4mg Take 1 Univers (ZOFRAN 7-22 tablet by ity of ODT) 4 mg 00:00: mouth [place] disintegrat 00 every 8 Medic al ing tablet (eight) Branch hours as needed for Nausea and Vomiting (N/V). ondansetron 2020-0 Yes [id number] 4mg Take 1 Univers (ZOFRAN 7-22 tablet by ity of ODT) 4 mg 00:00: mouth [place] disintegrat 00 every 8 Medic al ing tablet (eight) Branch hours as needed for Nausea and Vomiting (N/V). ondansetron 2020-0 Yes [id number] 4mg Take 1 Univers (ZOFRAN 7-22 tablet by ity of ODT) 4 mg 00:00: mouth [place] disintegrat 00 every 8 Medic al ing tablet (eight) Branch hours as needed for Nausea and Vomiting (N/V). ondansetron 2020-0 Yes [id number] 4mg Take 1 Univers (ZOFRAN 7-22 tablet by ity of ODT) 4 mg 00:00: mouth [place] disintegrat 00 every 8 Medic al ing tablet (eight) Branch hours as needed for Nausea and Vomiting (N/V). ondansetron 2020-0 Yes [id number] 4mg Take 1 Univers (ZOFRAN 7-22 tablet by ity of ODT) 4 mg 00:00: mouth [place] disintegrat 00 every 8 Medic al ing tablet (eight) Branch hours as needed for Nausea and Vomiting (N/V). ondansetron 2020-0 Yes [id number] 4mg Take 1 Univers (ZOFRAN 7-22 tablet by ity of ODT) 4 mg 00:00: mouth [place] disintegrat 00 every 8 Medic al ing tablet (eight) Branch hours as needed for Nausea and Vomiting (N/V). ondansetron 2020-0 Yes [id number] 4mg Take 1 Univers (ZOFRAN 7-22 tablet by ity of ODT) 4 mg 00:00: mouth [place] disintegrat 00 every 8 Medic al ing tablet (eight) Branch hours as needed for Nausea and Vomiting (N/V). ondansetron 2020-0 Yes [id number] 4mg Take 1 Univers (ZOFRAN 7-22 tablet by ity of ODT) 4 mg 00:00: mouth [place] disintegrat 00 every 8 Medic al ing tablet (eight) Branch hours as needed for Nausea and Vomiting (N/V). ondansetron 2020-0 Yes [id number] 4mg Take 1 Univers (ZOFRAN 7-22 tablet by ity of ODT) 4 mg 00:00: mouth [place] disintegrat 00 every 8 Medic al ing tablet (eight) Branch hours as needed for Nausea and Vomiting (N/V). ondansetron 2020-0 Yes [id number] 4mg Take 1 Univers (ZOFRAN 7-22 tablet by ity of ODT) 4 mg 00:00: mouth [place] disintegrat 00 every 8 Medic al ing tablet (eight) Branch hours as needed for Nausea and Vomiting (N/V). ondansetron 2020-0 Yes [id number] 4mg Take 1 Univers (ZOFRAN 7-22 tablet by ity of ODT) 4 mg 00:00: mouth [place] disintegrat 00 every 8 Medic al ing tablet (eight) Branch hours as needed for Nausea and Vomiting (N/V). ondansetron 2020-0 Yes [id number] 4mg Take 1 Univers (ZOFRAN 7-22 tablet by ity of ODT) 4 mg 00:00: mouth [place] disintegrat 00 every 8 Medic al ing tablet (eight) Branch hours as needed for Nausea and Vomiting (N/V). ondansetron 2020-0 Yes [id number] 4mg Take 1 Univers (ZOFRAN 7-22 tablet by ity of ODT) 4 mg 00:00: mouth [place] disintegrat 00 every 8 Medic al ing tablet (eight) Branch hours as needed for Nausea and Vomiting (N/V). ondansetron 2020-0 Yes [id number] 4mg Take 1 [facility] (ZOFRAN 7-22 tablet by ity of ODT) 4 mg 00:00: mouth [place] disintegrat 00 every 8 Medic al ing tablet (eight) Branch hours as needed for Nausea and Vomiting (N/V). ondansetron 2020-0 Yes [id number] 4mg Take 1 [facility] (ZOFRAN 7-22 tablet by ity of ODT) 4 mg 00:00: mouth [place] disintegrat 00 every 8 Medic al ing tablet (eight) Branch hours as needed for Nausea and Vomiting (N/V). ondansetron 2021-0 Yes [id number] 4mg Take 1 Univers (ZOFRAN 7-22 tablet by ity of ODT) 4 mg 00:00: mouth [place] disintegrat 00 every 8 Medic al ing tablet (eight) Branch hours as needed for Nausea and Vomiting (N/V). ondansetron 2021-0 Yes [id number] 4mg Take 1 [facility] (ZOFRAN 7-22 tablet by ity of ODT) 4 mg 00:00: mouth [place] disintegrat 00 every 8 Medic al ing tablet (eight) Branch hours as needed for Nausea and Vomiting (N/V). ondansetron 2021-0 Yes [id number] 4mg Take 1 Univers (ZOFRAN 7-22 tablet [...] by mouth ity of tablet 13:17: at [place] [address] bedtime. Medical Branch allopurinoL 2020-0 Yes 100mg Take 100 U nivers 100 mg 6-24 mg by ity of tablet 13:17: mouth [place] 52 daily. Medical Branch atorvastati 2020-0 Yes 10mg Take 10 mg Univers n 10 mg 6-24 by mouth ity of tablet 13:17: at [place] [address] bedtime. Medical Branch allopurinoL 2020-0 Yes 100mg Take 100 U nivers 100 mg 6-24 mg by ity of tablet 13:17: mouth [place] 52 daily. Medical Branch atorvastati 2020-0 Yes 10mg Take 10 mg Univers n 10 mg 6-24 by mouth ity of tablet 13:17: at [place] [address] bedtime. Medical Branch allopurinoL 2020-0 Yes 100mg Take 100 U nivers 100 mg 6-24 mg by ity of tablet 13:17: mouth [place] 52 daily. Medical Branch atorvastati 2020-0 Yes 10mg Take 10 mg Univers n 10 mg 6-24 by mouth ity of tablet 13:17: at [place] [address] bedtime. Medical Branch allopurinoL 2020-0 Yes 100mg Take 100 U nivers 100 mg 6-24 mg by ity of tablet 13:17: mouth [place] 52 daily. Medical Branch atorvastati 2020-0 Yes 10mg Take 10 mg Univers n 10 mg 6-24 by mouth ity of tablet 13:17: at [place] [address] bedtime. Medical Branch allopurinoL 2020-0 Yes 100mg Take 100 U nivers 100 mg 6-24 mg by ity of tablet 13:17: mouth [place] 52 daily. Medical Branch atorvastati 2020-0 Yes 10mg Take 10 mg Univers n 10 mg 6-24 by mouth ity of tablet 13:17: at [place] [address] bedtime. Medical Branch allopurinoL 2020-0 Yes 100mg [...] by mouth ity of tablet 13:17: at [place] [address] bedtime. Medical Branch allopurinoL 2020-0 Yes 100mg Take 100 U nivers 100 mg 6-24 mg by ity of tablet 13:17: mouth [place] 52 daily. Medical Branch atorvastati 2020-0 Yes 10mg Take 10 mg Univers n 10 mg 6-24 by mouth ity of tablet 13:17: at [place] [address] bedtime. Medical Branch allopurinoL 2020-0 Yes 100mg Take 100 U nivers 100 mg 6-24 mg by ity of tablet 13:17: mouth [place] 52 daily. Medical Branch atorvastati 2020-0 Yes 10mg Take 10 mg Univers n 10 mg 6-24 by mouth ity of tablet 13:17: at [place] [address] bedtime. Medical Branch allopurinoL 2020-0 Yes 100mg Take 100 U nivers 100 mg 6-24 mg by ity of tablet 13:17: mouth [place] 52 daily. Medical Branch atorvastati 2020-0 Yes 10mg Take 10 mg Univers n 10 mg 6-24 by mouth ity of tablet 13:17: at [place] [address] bedtime. Medical Branch allopurinoL 2020-0 Yes 100mg Take 100 U nivers 100 mg 6-24 mg by ity of tablet 13:17: mouth [place] 52 daily. Medical Branch atorvastati 2020-0 Yes 10mg Take 10 mg Univers n 10 mg 6-24 by mouth ity of tablet 13:17: at [place] [address] bedtime. Medical Branch allopurinoL 2020-0 Yes 100mg Take 100 U nivers 100 mg 6-24 mg by ity of tablet 13:17: mouth [place] 52 daily. Medical Branch atorvastati 2020-0 Yes 10mg Take 10 mg Univers n 10 mg 6-24 by mouth ity of tablet 13:17: at [place] [address] bedtime. Medical Branch allopurinoL 2020-0 Yes 100mg Take 100 U nivers 100 mg 6-24 mg by ity of tablet 13:17: mouth [place] 52 daily. Medical Branch atorvastati 2020-0 Yes 10mg Take 10 mg Univers n 10 mg 6-24 by mouth ity of tablet 13:17: at [place] [address] bedtime. Medical Branch allopurinoL 2020-0 Yes 100mg Take 100 U nivers 100 mg 6-24 mg by ity of tablet 13:17: mouth [place] 52 daily. Medical Branch atorvastati 2020-0 Yes 10mg Take 10 mg Univers n 10 mg 6-24 by mouth ity of tablet 13:17: at [place] [address] bedtime. Medical Branch allopurinoL 2020-0 Yes 100mg Take 100 U nivers 100 mg 6-24 mg by ity of tablet 13:17: mouth [place] 52 daily. Medical Branch atorvastati 2020-0 Yes 10mg Take 10 mg Univers n 10 mg 6-24 by mouth ity of tablet 13:17: at [place] [address] bedtime. Medical Branch allopurinoL 2020-0 Yes 100mg Take 100 U nivers 100 mg 6-24 mg by ity of tablet 13:17: mouth [place] 52 daily. Medical Branch atorvastati 2020-0 Yes 10mg Take 10 mg Univers n 10 mg 6-24 by mouth ity of tablet 13:17: at [place] [address] bedtime. Medical Branch propranolol 2020-0 Yes 80mg Take 80 mg Univers 80 mg 6-24 by mouth 2 ity of tablet 13:12: (two) [place] 38 times Medical daily. Branch propranolol 2020-0 Yes 80mg Take 80 mg Univers 80 mg 6-24 by mouth 2 ity of tablet 13:12: (two) [place] 38 times Medical daily. Branch propranolol 2020-0 Yes 80mg Take 80 mg Univers 80 mg 6-24 by mouth 2 ity of tablet 13:12: (two) [place] 38 times Medical daily. Branch propranolol 2020-0 Yes 80mg Take 80 mg Univers 80 mg 6-24 by mouth 2 ity of tablet 13:12: (two) [place] 38 times Medical daily. Branch propranolol 2020-0 [...] mouth 2 ity of tablet 13:12: (two) [place] 38 times Medical daily. Branch propranolol 2020-0 Yes 80mg Take 80 mg Univers 80 mg 6-24 by mouth 2 ity of tablet 13:12: (two) [place] 38 times Medical daily. Branch propranolol 2020-0 Yes 80mg Take 80 mg Univers 80 mg 6-24 by mouth 2 ity of tablet 13:12: (two) [place] 38 times Medical daily. Branch propranolol 2020-0 [...] (two) [place] 38 times Medical daily. Branch Vital Signs Vital Name Observation Time Observation Value Comments Source Systolic blood 2022-02-15 14:59:00 131 mm[Hg] Univer sity of pressure [facility] [place] [facility] Diastolic blood 2022-02-15 14:59:00 70 mm[Hg] Unive rsity of [facility] Heart rate 2022-02-15 14:59:00 81 /min Universi ty [facility] Respiratory rate 2022-02-15 14:59:00 18 /min Univ [facility] Body height 2022-02-15 14:59:00 167.6 cm Universi ty [facility] Body weight 2022-02-15 14:59:00 102.967 kg Universi ty [facility] BMI 2022-02-15 14:59:00 36.64 kg/m2 Universi ty [facility] Respiratory rate 2022-01-11 17:11:00 18 /min [facility] 2022-01-11 17:11:00 167.6 cm Universi ty [facility] Body weight 2022-01-11 17:11:00 100.699 kg Universi ty [facility] BMI 2022-01-11 17:11:00 35.83 kg/m2 Universi ty [facility] Systolic blood 2021-08-24 14:24:00 133 mm[Hg] Univer sity of pressure [facility] [place] [facility] Diastolic blood 2021-08-24 14:24:00 73 mm[Hg] Unive rsity of pressure [facility] Branch Heart rate 2021-08-24 14:24:00 69 /min [facility] Respiratory rate 2021-08-24 14:24:00 18 /min Univ ersity of [facility] Branch Body height 2021-08-24 14:24:[address] [facility] Body weight 2021-08-24 14:24:00 100.245 kg [facility] Branch BMI 2021-08-24 14:24:00 35.67 kg/m2 [facility] Oxygen saturation in 2021-06-07 15:30:00 96 /min [facility] Arterial blood by [facility] Pulse oximetry Branch Body temperature 2021-06-07 14:20:30 37.44 Verna Univ ersity of [facility] [place] [facility] Procedures Procedure Date / Time Performed Performing Clinician Sourc e EXTERNAL PROVIDER 2022-04-08 06:01:00 Doctor Unassigned, No Univ ersity of [place] RECORDS Name Medical Branch EXTERNAL PROVIDER 2022-04-08 06:01:00 Doctor Unassigned, No Univ ersity of [place] RECORDS Name Medical Branch EXTERNAL PROVIDER 2022-02-21 06:01:00 Doctor Unassigned, No Univ ersity of [place] RECORDS Name Medical Branch EXTERNAL PROVIDER 2022-02-21 06:01:00 Doctor Unassigned, No Univ ersity of [place] RECORDS Name Medical Branch LITHIUM 2022-02-15 15:58:[address] [facility] CONSENT/REFUSAL FOR 2022-01-11 17:10:16 Doctor Unassigned, No Un [facility] of [place] DIAGNOSIS AND Name Medical Branch TREATMENT CONSENT/REFUSAL FOR 2022-01-11 17:10:16 Doctor Unassigned, No Un [facility] [place] DIAGNOSIS AND Name Medical Branch TREATMENT Encounters Start End Encounter Admission Attending Care Care Encounter Source Date/Time Date/Time Type Type Clinicians Facility Department ID 2020-12-13 Emergency [facility] [id number] Univers 10:09:54 ity of [place] [facility] 2020-12-11 Emergency [facility] [id number] Univers 04:02:45 ity [facility] 2022-06-27 2022-06-27 Outpatient SFA SFA [id number] Robert 13:49:18 13:49:18 0516 F [place] 2022-06-21 2022-06-21 Outpatient SFA SFA [id number] Robert 08:52:50 08:52:50 0510 F [place] 2022-06-15 2022-06-15 Outpatient SFA SFA [id number] Robert 15:23:34 15:23:34 0504 F [place] 2022-05-31 2022-05-31 Outpatient R UNA HESTER [facility] [id number] [facility] 08:45[facility]00 [facility]45[facility]22[facility]30 Outpatient SFA SFA [id number] Robert 11:55:27 11:55:27 0418 F [place] 2022-05-23 2022-05-23 Outpatient SFA SFA [id number] Robert 11:17:29 11:17:29 0411 F [place] 2022-05-12 2022-05-12 Outpatient SFA SFA [id number] Robert 08:06:11 08:06:11 0331 [facility] 2022-05-11 2022-05-11 Outpatient SFA SFA [id number] Robert 13:45:44 13:45:44 0330 [facility] 2022-04-08 2022-04-08 Orders Doctor 1.2.840.5 [id number] Univers 00:00:00 00:00:00 Only Unassigned, 63401.1.1 ity of [place] 3.104.2.7 [place] .3.588239 Medica l .8 [place] 2022-02-21 2022-02-21 Orders Doctor 1.2.840.9 [id number] Univers 00:00:00 00:00:00 Only Unassigned, 80570.1.1 ity of [place] 3.104.2.7 [facility] [place] [facility]3.498657 Medica l .8 [place] 2022-02-15 2022-02-15 Senior Business Process Analyst Pathology 1.2.840.5 [id number] Univers 13:30:00 13:45:00 Visit Pcp-Lab 31181.1.1 ity of 3.104.2.7 [place] .3.014478 Medica l .8 [place] 2022-02-15 2022-02-15 Outpatient R LARISSA [facility] [id number] Univers 08:45:00 10:52:26 DERRELL bricey o f [facility] [place] [facility] 2022-02-15 2022-02-15 Travel 1.2.840.1 [id number] Univers 00:00:00 00:00:00 49263.1.1 350.1.13.10 ity of 3.104.2.7 4.[place].7.3.698 [place] .3.493840 084.8 Medica l .8 [place] 2022-01-11 2022-01-11 Outpatient R UNA HESTER [facility] [id number] Univers 11:00:00 12:39:46 UNA HESTER [facility] 2022-01-11 2022-01-11 Orders Doctor 1.2.840.8 [id number] Univers 00:00:00 00:00:00 Only Unassigned, 14309.1.1 ity of [place] 3.104.2.7 [place] .3.949444 Medica l .8 [place] 2022-01-11 2022-01-11 Travel 1.2.840.1 [id number] [id number] Univers 00:00:00 00:00:00 64884.1.1 350.1.13.10 ity of 3.104.2.7 4.2.7.3.698 [place] .3.858536 084.8 Medica l .8 [place] 2021-11-24 2021-11-24 Outpatient R QUENTIN [facility] [id number] Univers 09:30:00 09:30:00 IGOR wesley o f [facility] [place] [facility] 2021-11-16 2021-11-16 Outpatient R UNA HESTER [facility] [id number] Univers 11:00:00 11:00:00 KACIE, UNA [facility] 2021-10-26 2021-10-26 Outpatient R LARISSA, [facility] [id number] Univers 08:00:00 08:00:00 DERRELL walters [facility] 2021-10-20 2021-10-20 Outpatient R QUENTIN, [facility] [id number] Univers 10:00:00 10:00:00 IGOR wesley [facility] 2021-10-03 2021-10-03 Outpatient R JENNIFER, [facility] [id number] Univers 14:30:00 14:30:00 REX dl [facility] 2021-09-21 2021-09-21 Outpatient R SELF, [facility] [id number] Univers 09:30:00 09:30:00 DERRELL walters [facility] 2021-08-24 2021-08-24 Outpatient R SELF, [facility] [id number] Univers 09:30:00 10:41:34 DERRELL walters [facility] 2021-08-24 2021-08-24 Travel 1.2.840.1 [id number] Univers 00:00:00 00:00:00 00537.1.1 350.1.13.10 ity of 3.104.2.7 4.2.7.3.698 [place] .3.884783 084.8 Medica l .8 Branch 2021-07-25 2021-07-25 Outpatient R LARISSA, [facility] [id number] Univers 09:00:00 09:00:00 DERRELL walters [facility] 2021-06-22 2021-06-22 Outpatient R UNA HESTER [facility] [id number] Univers 11:15:00 12:18:05 UNA HESTER [facility] 2021-06-22 2021-06-22 Outpatient R UNA HESTER [facility] [id number] Univers 11:15:00 11:15:00 UNA HESTER [facility] 2021-06-22 2021-06-22 Travel 1.2.840.1 [id number] Univers 00:00:00 00:00:00 38549.1.1 350.1.13.10 ity of 3.104.2.7 4.2.7.3.698 [place] .3.064309 084.8 Medica l .8 Branch 2021-06-20 2021-06-20 Outpatient R SELF, [facility] [id number] Univers 11:15:00 11:15:00 DERRELL ity o f [facility] [place] [facility] 2021-06-20 2021-06-20 Outpatient R SELF, [facility] [id number] Univers 11:15:00 11:15:00 DERRELL ity o f [facility] 2021-06-08 2021-06-08 Outpatient R HILARY MOORE [facility] [id number] Univers 09:20:00 09:20:00 ROBEL MOOREMANoa ity of [facility] 2021-06-08 2021-06-08 Patient Saavedra, 1.2.840.2 [id number] Univers 00:00:00 00:00:00 Secure Msg Igor 71357.1.1 ity of [place] 3.104.2.7 [place] .3.450436 Medica l .8 [place] 2021-06-07 2021-06-07 Emergency X , [facility] ERT [id number] Univers 09:13:00 10:50:00 LULY wesley of [facility] 2021-06-07 2021-06-07 Emergency , [facility] 1.2.610.600 [id number] Univers 09:13:00 10:50:00 Luly GILLESPIE 350.1.13.10 i ty of [place] 4.2.7.2.686 [facility] [id number] Medi rogelio 084 [place] 2021-06-07 2021-06-07 Emergency Ny, 1.2.840.2 [id number] Univers 09:13:00 10:50:00 Luly 10848.1.1 ity of 3.104.2.7 [place] .3.584625 Medica l .8 [place] 2021-06-07 2021-06-07 Outpatient R SAAVEDRA, [facility] [id number] Univers 00:00:00 00:00:00 IGOR martinez [facility] [place] [facility] 2021-06-07 2021-06-07 Orders Doctor MOO 1.2.840.114 [id number] Univers 00:00:00 00:00:00 Only Unassigned, QUITA 350.1.13.10 ity of [place] [facility] 4.2.7.2.686 Iam as [id number] [address] 2021-06-07 2021-06-07 Travel 1.2.840.1 1.2.759.222 [id number] Univers 00:00:00 00:00:00 14986.1.1 350.1.13.10 ity of 3.104.2.7 [place].3.698 [place]3.451759 084.8 Medica l .8 [place] 2021-06-07 2021-06-07 Orders Doctor 1.2.840.3 [id number] Univers 00:00:00 00:00:00 Only Unassigned, 54609.1.1 ity of [place] 3.104.2.7 [place] .3.583963 Medica l .8 [place] 2021-06-03 2021-06-03 Travel 1.2.840.1 1.2.639.154 [id number] Univers 00:00:00 00:00:00 43381.1.1 350.1.13.10 ity of 3.104.2.7 [place].3.698 [place]3.693773 084.8 Medica l .8 [place] 2021-05-27 2021-05-27 Outpatient R QUENTIN [facility] [id number] Univers 00:00:00 00:00:00 IGOR amrtinez [facility] [place] [facility] 2021-05-27 2021-05-27 Outpatient R SAAVEDRA, [facility] [id number] Univers 00:00:00 00:00:00 IGOR martinez [facility] [place] [facility] 2021-05-25 2021-05-25 Patient Doctor 1.2.840.0 [id number] Univers 00:00:00 00:00:00 Secure Msg Unassigned, 08014.1.1 ity of [place] 3.104.2.7 [place] .3.922633 Medica l .8 [place] 2021-05-25 2021-05-25 Patient Doctor 1.2.840.3 [id number] Univers 00:00:00 00:00:00 Secure Msg Unassigned, 12605.1.1 ity of [place] 3.104.2.7 [place] .3.921895 Medica l .8 [place] 2021-05-20 2021-05-20 Telephone Jones 1.2.840.0 [id number] Univers 00:00:00 00:00:00 Best, 35597.1.1 ity of [place] 3.104.2.7 [place] .3.995651 Medica l .8 [place] 2021-05-20 2021-05-20 Telephone Jones 1.2.840.7 [id number] Univers 00:00:00 00:00:00 Best, 78821.1.1 ity of [place] 3.104.2.7 [place] .3.415418 Medica l .8 [place] 2021-05-18 2021-05-18 Travel 1.2.840.1 1.2.466.784 [id number] Univers 00:00:00 00:00:00 22725.1.1 350.1.13.10 ity of 3.104.2.7 4.2.7.3.698 [place] .3.512071 084.8 Medica l .8 [place] 2021-05-18 2021-05-18 Travel 1.2.840.1 1.2.431.634 [id number] [id number] Univers 00:00:00 00:00:00 81066.1.1 350.1.13.10 ity of 3.104.2.7 4.[place].7.3.698 [place] .3.830271 084.8 Medica l .8 [place] 2021-05-17 2021-05-17 Senior Business Process Analyst Pcp-Lab [facility] 1.2.840.114 [id number] Univers 13:15:00 13:30:00 Visit Igor Saavedra PRIMARY 350.1.13.1 0 ity of CARE 4.2.7.2.686 Sujey BROWNLEE [id number] Az dical 366 [place] 2021-05-17 2021-05-17 Senior Business Process Analyst Igor Saavedra 1.2.840.1 1 [id number] Univers 13:15:00 13:30:00 Visit Pcp-Lab 07002.1.1 ity of 3.104.2.7 [place] .3.697453 Medica l .8 [place] 2021-05-17 2021-05-17 Senior Business Process Analyst Igor Saavedra 1.2.840.1 1 [id number] Univers 13:15:00 13:30:00 Visit Pcp-Lab 69354.1.1 ity of 3.104.2.7 [place] .3.940724 Medica l .8 [place] 2021-05-17 2021-05-17 [facility] [id number] Univers 09:00:00 10:25:05 IGOR wesley o [facility] 2021-05-17 2021-05-17 Office Igor Saavedra 1.2.840.1 1020 [id number] Univers 09:00:00 10:25:05 Visit Deonte Joel 44221.1.1 ity of 3.104.2.7 [place] .3.035726 Medica l .8 [place] 2021-05-17 2021-05-17 Outpatient R SAAVEDRA, [facility] [id number] Univers 09:00:00 10:25:05 IGOR wesley o [facility] 2021-05-17 2021-05-17 Outpatient R SAAVEDRA, [facility] [id number] Univers 09:30:00 09:30:00 IGOR wesley o [facility] 2021-05-17 2021-05-17 Travel 1.2.840.1 1.2.086.311 [id number] [id number] Univers 00:00:00 00:00:00 23059.1.1 350.1.13.10 ity of 3.104.2.7 4.[place].7.3.698 [place] .3.066700 084.8 Medica l .8 [place] 2021-05-17 2021-05-17 Travel 1.2.840.1 1.2.213.983 [id number] Univers 00:00:00 00:00:00 61319.1.1 350.1.13.10 ity of 3.104.2.7 4.[place].7.3.698 [place] .3.581194 084.8 Medica l .8 [place] 2021-04-26 2021-04-26 Outpatient R [facility] [id number] Univers 09:00:00 09:00:00 ity [facility] 2021-04-26 2021-04-26 Outpatient R WENDY [facility] [id number] Univers 09:00:00 09:00:00 [facility] 2021-04-20 Outpatient R UNA HESTER [facility] [id number] Univers 08:45:00 08:45:00 UNA HESTER [facility] 2021-04-11 2021-04-11 Outpatient SALLY FIGUEROA [facility] [id number] Univers 08:40:00 08:40:00 SALLY MITCHELL [facility] 2021-04-11 2021-04-11 Outpatient SALLY FIGUEROA [facility] [id number] Univers 08:40:00 08:40:00 SALLY MITCHELL dl [facility] 2021-03-21 2021-03-21 Outpatient SALLY FIGUEROA [facility] [id number] Univers 08:00:00 08:00:00 SALLY MITCHELL [facility] 2021-03-17 2021-03-17 Patient Doctor 1.2.840.3 [id number] Univers 00:00:00 00:00:00 Secure Msg Unassigned, 20991.1.1 ity of [place] 3.104.2.7 [place] .3.037046 Medica l .8 [place] 2021-03-17 2021-03-17 Patient Doctor 1.2.840.3 [id number] Univers 00:00:00 00:00:00 Secure Msg Unassigned, 98561.1.1 ity of [place] 3.104.2.7 [place] .3.254728 Medica l .8 [place] 2021-03-17 2021-03-17 Patient Doctor 1.2.840.3 [id number] Univers 00:00:00 00:00:00 Secure Msg Unassigned, 47344.1.1 ity of [place] 3.104.2.7 [place] .3.187441 Medica l .8 [place] 2021-03-16 2021-03-16 Senior Business Process Analyst [place] 1.2.840.1 1020 [id number] Univers 13:15:00 13:30:00 Visit Pcp-Lab 16198.1.1 ity of 3.104.2.7 [place] .3.437147 Medica l .8 [place] 2021-03-16 2021-03-16 Senior Business Process Analyst [place] 1.2.840.1 1020 [id number] Univers 13:15:00 13:30:00 Visit Pcp-Lab 70950.1.1 ity of 3.104.2.7 [place] .3.937581 Medica l .8 [place] 2021-03-16 2021-03-16 Outpatient Tonya LOCKWOOD [facility] [id number] Univers 13:15:00 13:15:00 RALEIGH wesley [facility] 2021-03-16 2021-03-16 Outpatient UNA DELGADILLO [facility] [id number] Univers 12:00:00 12:09:51 UNA HESTER dl [facility] 2021-03-16 2021-03-16 [facility] [id number] Univers 12:00:00 12:09:51 UNA HESTER [facility] 2021-03-16 2021-03-16 Outpatient Tonya HESTER [facility] [id number] Univers 12:00:00 12:00:00 UNA HESTER ity of [facility] [place] [facility] 2021-03-16 2021-03-16 Travel 1.2.840.1 1.2.533.285 [id number] Univers 00:00:00 00:00:00 18474.1.1 350.1.13.10 ity of 3.104.2.7 4.[place].7.3.698 [place] .3.518703 084.8 Medica l .8 [place] 2021-03-16 2021-03-16 Travel 1.2.840.1 1.2.918.728 [id number] Univers 00:00:00 00:00:00 75250.1.1 350.1.13.10 ity of 3.104.2.7 4.2.7.3.698 [place] .3.523944 084.8 Medica l .8 [place] 2021-03-11 2021-03-11 [facility] [id number] Univers 09:44:00 13:06:00 HALIMA ity of [facility] [place] [facility] 2021-03-11 2021-03-11 Emergency Geeta, 1.2.840.6 [id number] Univers 09:44:00 13:06:00 Halima Cates 40065.1.1 ity of 3.104.2.7 [place] .3.519398 Medica l .8 [place] 2021-03-11 2021-03-11 Emergency [facility] [id number] Univers 09:44:00 13:06:00 HALIMA ity of [facility] [place] [facility] 2021-03-11 2021-03-11 Emergency Geeta, 1.2.840.3 [id number] Univers 09:44:00 13:06:00 Halima J 25494.1.1 ity of 3.104.2.7 [place] .3.611311 Medica l .8 [place] 2021-03-11 2021-03-11 Emergency [facility] [id number] Univers 09:44:00 13:06:00 HALIMA ity of [facility] [place] [facility] 2021-03-11 2021-03-11 Emergency X GEETA, [facility] ERT [id number] Univers 09:44:00 09:44:00 HALIMA babsdl of [facility] [place] [facility] 2021-03-11 2021-03-11 Travel 1.2.840.1 1.2.582.008 [id number] Univers 00:00:00 00:00:00 16062.1.1 350.1.13.10 ity of 3.104.2.7 4.2.7.3.698 [place] .3.266805 084.8 Medica l .8 [place] 2021-03-11 2021-03-11 Travel 1.2.840.1 1.2.022.361 [id number] [id number] Univers 00:00:00 00:00:00 59817.1.1 350.1.13.10 ity of 3.104.2.7 4.2.7.3.698 [place] .3.606311 084.8 Medica l .8 [place] 2021-03-08 2021-03-08 Senior Business Process Analyst [place] 1.2.840.1 1020 [id number] Univers 15:00:00 15:15:00 Visit Pcp-Lab 03485.1.1 ity of 3.104.2.7 [place] .3.261859 Medica l .8 [place] 2021-03-08 2021-03-08 Senior Business Process Analyst [place] 1.2.840.1 1020 [id number] Univers 15:00:00 15:15:00 Visit Pcp-Lab 36731.1.1 ity of 3.104.2.7 [place] .3.595118 Medica l .8 [place] 2021-03-08 2021-03-08 Outpatient R FABIÁN [facility] [id number] Univers 15:00:00 15:00:00 RALEIGH wesley of [facility] [place] [facility] 2021-01-31 2021-01-31 [facility] [id number] Univers 10:15:00 10:55:06 DERRELL walters f [facility] [place] [facility] 2020-12-29 2020-12-29 Outpatient R SELF, [facility] [id number] Univers 08:00:00 08:41:00 DERRELL martinez [facility] [place] [facility] 2020-12-29 2020-12-29 Outpatient R SELF, [facility] [id number] Univers 08:00:00 08:41:00 DERRELL martinez [facility] [place] [facility] 2020-12-29 2020-12-29 Travel 1.2.840.1 1.2.922.598 [id number] Univers 00:00:00 00:00:00 31103.1.1 350.1.13.10 ity of 3.104.2.7 4.[place].7.3.698 [place] .3.586518 084.8 Medica l .8 [place] 2020-12-29 2020-12-29 Travel 1.2.840.1 1.2.289.184 [id number] Univers 00:00:00 00:00:00 58271.1.1 350.1.13.10 ity of 3.104.2.7 4.2.7.3.698 [place] .3.322618 084.8 Medica l .8 [place] 2020-12-22 2020-12-22 Outpatient R SELF, [facility] [id number] Univers 09:30:00 09:30:00 DERRELL martinez [facility] [place] [facility] 2020-12-22 2020-12-22 Outpatient R SELF, [facility] [id number] Univers 09:30:00 09:30:00 DERRELL martinez [facility] [place] [facility] 2020-11-10 2020-11-10 Outpatient R SHE, [facility] [id number] Univers 09:30:00 09:30:00 ROBERT ity [facility] 2020-11-10 2020-11-10 Orders Doctor 1.2.840.0 [id number] Univers 00:00:00 00:00:00 Only Unassigned, 99400.1.1 ity of [place] 3.104.2.7 [place] .3.622987 Medica l .8 [place] 2020-11-10 2020-11-10 Travel 1.2.840.1 1.2.888.482 [id number] Univers 00:00:00 00:00:00 61989.1.1 350.1.13.10 ity of 3.104.2.7 4.2.7.3.698 [place] .3.217134 084.8 Medica l .8 [place] 2020-10-11 2020-10-11 Outpatient R SELF, [facility] [id number] Univers 08:00:00 08:00:00 DERRELL wesley o f [facility] [place] [facility] 2020-10-11 2020-10-11 Travel 1.2.840.1 1.2.604.741 [id number] Univers 00:00:00 00:00:00 85274.1.1 350.1.13.10 ity of 3.104.2.7 4.2.7.3.698 [place] .3.132514 084.8 Medica l .8 [place] 2020-09-13 2020-09-13 Outpatient R SELF, [facility] [id number] Univers 08:00:00 08:00:00 DERRELL wesley o f [facility] [place] [facility] 2020-09-13 2020-09-13 Travel 1.2.840.1 1.2.778.605 [id number] Univers 00:00:00 00:00:00 68664.1.1 350.1.13.10 ity of 3.104.2.7 4.[place].7.3.698 [place] .3.049743 084.8 Medica l .8 [place] 2020-09-02 2020-09-02 Emergency Rose, 1.2.840.3 [id number] Univers 16:12:00 20:21:00 Patti 51608.1.1 ity of 3.104.2.7 [place] .3.651460 Medica l .8 [place] 2020-09-02 2020-09-02 Emergency [facility] 1.2.840.114 [id number] 16:12:00 20:21:00 Pattiemir Gillespie 350.1.13.10 [facility] 4.2.7.2.686 [place] [id number] 08 2020-09-02 2020-09-02 Orders Doctor MOO 1.2.840.114 [id number] 00:00:00 00:00:00 Only Unassigned, QUITA 350.1.13.10 [place] [facility] 4.2.7.2.686 [id number] 009 2020-09-02 2020-09-02 Travel 1.2.840.1 1.2.180.773 [id number] [id number] Univers 00:00:00 00:00:00 11119.1.1 350.1.13.10 ity of 3.104.2.7 4.2.7.3.698 [place] .3.155548 084.8 Medica l .8 [place] 2020-09-02 2020-09-02 Orders Doctor 1.2.840.7 [id number] Univers 00:00:00 00:00:00 Only Unassigned, 58580.1.1 ity of [place] 3.104.2.7 [place] .3.402981 Medica l .8 [place] 2020-08-25 2020-08-25 Outpatient R [facility] [id number] Univers 09:15:00 09:15:00 ity [facility] 2020-08-09 2020-08-09 Outpatient R SELF, [facility] [id number] Univers 08:45:00 08:45:00 DERRELL wesley o [facility] 2020-06-28 2020-06-28 Outpatient R FABIÁN [facility] [id number] Univers 13:45:00 13:45:00 RALEIGH ity [facility] 2020-06-21 2020-06-21 Outpatient R LARISSA, [facility] [id number] Univers 15:15:00 15:15:00 DERRELL walters [facility] 2020-06-07 2020-06-07 Outpatient R SELF, [facility] [id number] Univers 08:45:00 08:45:00 DERRELL walters [facility] 2020-05-25 2020-05-25 Outpatient R MICHELLE [facility] [id number] Univers 08:30:00 08:30:00 CRISTO [facility] 2020-03-15 2020-03-15 Outpatient R FABIÁN, [facility] [id number] Univers 13:00:00 13:00:00 RALEIGH dl [facility] 2020-03-08 2020-03-08 Outpatient R SELF, [facility] [id number] Univers 13:00:00 13:00:00 DERRELL wesley o juan [facility] [place] [facility] 2020-02-16 2020-02-16 Outpatient R SELF, [facility] [id number] Univers 11:00:00 11:00:00 DERRELL wesley o juan [facility] [place] [facility] 2020-01-27 2020-01-27 Outpatient R SELF, [facility] [id number] Univers 11:45:00 11:45:00 DERRELL wesley o juan [facility] [place] [facility] 2020-01-19 2020-01-19 Outpatient R SELF, [facility] [id number] Univers 08:00:00 08:00:00 DERRELL wesley o juan [facility] [place] [facility] 2019-12-22 2019-12-22 Outpatient R SELF, [facility] [id number] Univers 08:45:00 08:45:00 DERRELL wesley o juan [facility] [place] [facility] 2019-12-05 2019-12-05 Outpatient R ALEISHA, [facility] [id number] Univers 10:45:00 10:45:00 PRISCA [facility] 2019-10-23 2019-10-23 Outpatient R SANDY, [facility] [id number] Univers 09:15:00 09:15:00 KATH [facility] 2019-10-15 2019-10-15 Outpatient R SHE, [facility] [id number] Univers 11:30:00 11:30:00 ROBERT [facility] 2019-10-01 2019-10-01 Outpatient R SHE, [facility] [id number] Univers 14:30:00 14:30:00 ROBERT [facility] 2019-09-01 2019-09-01 Outpatient R SELF, [facility] [id number] Univers 08:45:00 08:45:00 DERRELL wesley o juan [facility] [place] [facility] 2019-08-06 2019-08-06 [facility] [id number] Univers 13:00:00 13:00:00 ANGELA wesley [facility] Results Test Description Test Time Test Comments Results Result Comments Source [facility] 2022-02-15 20:05:22 Test Item Value Reference Range Interpretation Comme nts [place] (test code = 9731974644) 1.1 mmol/L 0.6-1.2 ZAINAB (test code = ZAINAB) Toxic Range: ? Greater than 1.2 mmol/L Lab Interpretation (test code = 32490-6) Normal [facility]2023-01-04 20:05:22 Test Item Value Reference Range Interpretation Comments [place] (test code = 1.1 mmol/L 0.6-1.2 5247339736) ZAINAB (test code = ZAINAB) Toxic Range: ? Greater than 1.2 mmol/L Lab Interpretation (test Normal code = 21195-2) [facility]2023-01-04 20:05:22 Test Item Value Reference Range Interpretation Comments [place] (test code = 1.1 mmol/L 0.6-1.2 0186570034) ZAINAB (test code = ZAINAB) Toxic Range: ? Greater than 1.2 mmol/L Lab Interpretation (test Normal code = 55043-3) [facility]2023-01-04 20:05:22 Test Item Value Reference Range Interpretation Comments [place] (test code = 1.1 mmol/L 0.6-1.2 0937874071) ZAINAB (test code = ZAINAB) Toxic Range: ? Greater than 1.2 mmol/L Lab Interpretation (test Normal code = 51401-5) [facility]2023-01-04 20:05:22 Test Item Value Reference Range Interpretation Comments [place] (test code = 1.1 mmol/L 0.6-1.2 6303471939) ZAINAB (test code = ZAINAB) Toxic Range: ? Greater than 1.2 mmol/L Lab Interpretation (test Normal code = 54073-0) [facility]2023-01-04 20:05:22 Test Item Value Reference Range Interpretation Comments [place] (test code = 1.1 mmol/L 0.6-1.2 6938630765) ZAINAB (test code = ZAINAB) Toxic Range: ? Greater than 1.2 mmol/L Lab Interpretation (test Normal code = 88165-2) [facility]2023-01-04 20:05:22 Test Item Value Reference Range Interpretation Comments [place] (test code = 1.1 mmol/L 0.6-1.2 5960745702) ZAINAB (test code = ZAINAB) Toxic Range: ? Greater than 1.2 mmol/L Lab Interpretation (test Normal code = 91157-6) [facility]2023-01-04 20:05:22 Test Item Value Reference Range Interpretation Comments [place] (test code = 1.1 mmol/L 0.6-1.2 1533438105) ZAINAB (test code = ZAINAB) Toxic Range: ? Greater than 1.2 mmol/L Lab Interpretation (test Normal code = 27364-6) [facility]2023-01-04 20:05:22 Test Item Value Reference Range Interpretation Comments [place] (test code = 1.1 mmol/L 0.6-1.2 6737576995) ZAINAB (test code = ZAINAB) Toxic Range: ? Greater than 1.2 mmol/L Lab Interpretation (test Normal code = 48751-0) [facility]2023-01-04 20:05:22 Test Item Value Reference Range Interpretation Comments [place] (test code = 1.1 mmol/L 0.6-1.2 4022914440) ZAINAB (test code = ZAINAB) Toxic Range: ? Greater than 1.2 mmol/L Lab Interpretation (test Normal code = 81508-1) [facility]2018-07-20 07:27:00 Test [...] VERY HIGH.........>/ = 190 mg/dL Comments to Plant Engineering Supervisor: ADD TO AM LABSLIPID PROFILE (CORONARY RISK)2018-07-20 [...] MG/DL 0-99 code = LDL) Comments to Plant Engineering Supervisor: ADD TO AM LABSPROTHROMBIN [id number] 06:24:00 Test Item Value Reference Range Interpretation [...] myocar dial infarction. 2.0 - 3.0 3. Software Lead al prosthesis hear t valves, recurre nt systemic emboli sm. 3.0 - 4.5 Comments to Plant Engineering Supervisor: NURSE WILL BRING SPECIMEN TO LABPTT ACTIVATED 2018-07-20 06:24:00 Test Item Value Reference Range Interpretation Comments PTT ACTIVATED (test code = APTT) 29.3 SECONDS 22.0-33.0 N Comments to Plant Engineering Supervisor: NURSE WILL BRING SPECIMEN TO LABBASIC METABOLIC [...] 9.6 MG/DL 8.4-10.2 N CA) Comments to Plant Engineering Supervisor: NURSE WILL BRING SPECIMEN TO LAB Comments to Plant Engineering Supervisor: NURSE WILL BRING SPECIMEN TO [id number] 06:13:00 Test Item Value Reference Range Interpretation Comments MAGNESIUM (test code = MAG) 2.2 MG/DL 1.6-2.3 N Comments to Plant Engineering Supervisor: NURSE WILL BRING SPECIMEN TO LAB Comments to Plant Engineering Supervisor: NURSE WILL BRING SPECIMEN TO LABCBC W/AUTO [id number] 06:02:00 Test Item Value Reference Range Interpretation [...] code = 0.00 K/mm3 0.0-0.1 N NRBC#) Notes Date/Time Note Provider Source 2018-07-20 06:55:00-00:00 [id number] [place] [address] PATIENT NAME: UDAY SCHUELR ADMIT DATE: 07/20/18 ACCOUNT NO: [id number] ROOM NO: AGE: 43 REPORT TYPE: CARDIAC CATHETERIZATION REPORT SEX: F ADMITTING PHYSICIAN: ATTENDING PHYSICIAN:Rosa Harper MD PROCEDURE DATE: 07/20/2018 RECONSTRUCTIVE SURGEON: Rosa Harper MD TITLE OF THE PROCEDURE: Left heart catheterizati on, selective bilateral renal angiograms. INDICATION FOR THE PROCEDURE : Chest pain, multiple cardiovascular risk factors, abnormal stress test, uncont rolled hypertension, rule out renal artery stenosis. ESTIMATED BLOOD LOSS: Minimal. COMPLICATIONS: None. CONTRAST: 80 mL. ANESTHESIA: Conscious sedation with Versed and f entanyl and 1% lidocaine for local anesthesia. 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 The recommendati on is medical therapy. PROCEDURE IN DETAIL: After informed consent, the patient was brought to the cardiac catheterization lab in a stable fasting nonsedated state. She was prepped and draped in the usual sterile fashion. After conscious sedation, 1% lidocaine was administered to the right common f emoral artery area for local anesthesia. A 6-Zambian sheath was placed in the right common femoral artery using standard techniques and fluoroscop y. After heparinization, left coronary angiogram showed a very short left main, if any and JL3.5 had to be used to cannulate the left main. There was no an giographic disease of both the LAD and circumflex. Right coronary angiogram showed no a ngiographic coronary artery disease. It was a dominant vessel. Left ventricu lar angiogram showed an elevated left ventricular en d-diastolic pressure of 23, normal left ventricular ejection fraction of 60%. No wall motion abnorma lities and no significant aortic valve gradient. The right groin was sealed using Vascade. Before that, selective bilateral renal angiogram was carried out that showed fibromuscular dysplasia of the right renal artery that is not obstructive. There was spasm. The right common femoral insertion site as there was also a spasm previously from the catheter on the origin of the circumfle x. The patient tolerated the procedure well. There were no complications. She was transferred back to the holding area for observation to be discharged later on today on medical therapy PATIENT NAME: UDAY SCHULER and risk factor modification. Dictated By: Rosa Harper MD WT: CATH:ADRIANA/KIAN/RIGOBERTO Conf#: [id number]/DID#: [id number] Authenticated by Rosa Harper MD On 09/2018 08:15:22 AM at 0815 PATIENT NAME: UDAY SCHULER ACCOUNT #: [id number] 2018-07-20 06:06:00-00:00 [id number] [place] [address] PATIENT NAME: UDAY SCHULER ADMIT DATE: 07/20/18 ACCOUNT NO: [id number] ROOM NO: AGE: 43 REPORT TYPE: ELECTROCARDIOGRAM SEX: F ADMITTING PHYSICIAN: ATTENDING PHYSICIAN:Rosa Harper MD Order: [id number] Test Reason : CAD Test Date/Time Stamp: SunJul 20 2018 06:06:58 Blood Pressure : / mmHG Vent. Rate : 069 BPM Atrial Rate : 069 BPM P-R Int : 154 ms QRS Dur : 098 ms QT Int : 446 ms P-R-T Axes : 043 046 048 degree s QTc Int : 477 ms Normal sinus rhythm Normal ECG No previous ECGs available Confirmed by ROSA HARPER ([id number]) on 07/20/2018 9 :21:42 AM Referred By: Rosa Harper Confirmed by:ROSA CRUZ at 0921 PATIENT NAME: UDAY SCHULER ACCOUNT #: [id number] 2018-07-19 18:55:00-00:00 [id number] [place] [id number] PATIENT NAME: UDAY SCHULER ADMIT DATE: 07/20/18 ACCOUNT NO: [id number] ROOM NO: AGE: 43 REPORT TYPE: HISTORY AND PHYSICAL SEX: F ADMITTING PHYSICIAN: ATTENDING PHYSICIAN:Rosa Harper MD ADMISSION DATE: 07/20/2018 RECONSTRUCTIVE SURGEON: Rosa Harper MD REASON FOR ADMISSION: Chest pain, dyspnea sounds like new onset angina, abnormal stress test for car diac catheterization and possible revascularization. HISTORY OF PRESENT ILLNESS: Uday is a 43-year -old lady with multiple cardiovascular risk factors, who was recently ev aluated for symptoms of chest pains, dyspnea and history of syncope. N oninvasive workup was carried out with an echocardiogram, which was normal. She had a s tress test. She was able to exercise for a total of abou t 6 minutes. She had a positive stress test with ST depression. Given this information and t he patient's risk factors, she is here for cardiac catheterization to assess fo r possible revascularization. There is no history of congestive heart failure. She has history of dizziness and history of syncope as well as edema. PAST MEDICAL HISTORY: Remarkable for hypertensio n, anxiety, depression, sleep apnea, gout, and allergies. PAST SURGICAL HISTORY: Cholecystectomy. ALLERGIES: SULFA CAUSES RASH. MEDICATIONS: Duloxetine 60 mg daily, quetiapine fumarate 50 mg daily, allopurinol 100 mg daily, citalopram 10 mg daily , propranolol 80 mg daily, losartan 100 mg daily, furosemide 40 mg as neede d. SOCIAL HISTORY: The patient does not smoke or us [address] drugs or drinks alcohol. FAMILY HISTORY: Positive for atherosclerotic car diovascular disease. REVIEW OF SYSTEMS: Remarkable for the ab ove in addition to fatigue, dizziness, headaches, night sweats, all ergies, dry mouth, weakness, edema, nausea, history of gout, difficulty balancing, anxiety and depre ssion. No acute GI or symptoms. No TIAs or strokes. PHYSICAL EXAMINATION: GENERAL: A pleasant middle-aged lady in no acute distress. VITAL SIGNS: Blood pressure 141/85, pulse 77 per minute and regular, respiratory rate 16 unlabored, temperature afebr ile. PATIENT NAME: UDAY SCHULER HEENT: Head, atraumatic and normocephalic. Eyes and ENT examination within normal for age. NECK: Supple. No jugular venous distention, brui ts, or lymphadenopathy. Normal upstroke. LUNGS: Clear and resonant. HEART: Regular rate and rhythm. No murmurs or ga llops. ABDOMEN: Soft. No tenderness, no organomegaly, n o masses or bruits. EXTREMITIES: 1+ edema. 2+ distal pulses. No cyan osis or clubbing. NEUROLOGIC: Alert and oriented x3. Examination a ppears to be nonfocal. LABORATORY DATA: Pending. Noninvasive cardiovasc ular workup enclosed. IMPRESSION AND PLAN: This is a 43-year-old lady with some cardiovascular risk factors symptoms of chest pains, abnormal stress test. She continues to complain of symptoms despite medical therapy. She may have significant coronary artery disease. The recommendation is to proceed with left heart catheterization and possible revascularization. The risks and benefits of the planned procedure were discussed in deta il with the patient and she is willing to proceed. The patient was offered to do a stre ss nuclear before the heart catheterization, but she was convinced t hat she will eventually need a cardiac catheterization, so she deci ded to proceed directly with catheterization to save any further costs. This was all discussed in det ail with the patient. Dictated By: Rosa Harper MD WT: HP:TRAVIS/KIAN/RIGOBERTO Conf#: [id number]/DID#: [id number] Authenticated by Rosa Harper MD On 07/13 07:20:46 AM at 0721 PATIENT NAME: UDAY SCHULER ACCOUNT #: [id number]
--- NOTE | 2022-07-18 18:18 | RAD REPORT ---
EXAM DESCRIPTION: RAD - Chest Single View - 07/18/2022 6:13 pm CLINICAL HISTORY: CHEST PAIN Chest pain. COMPARISON: Chest Single View dated 05/04/2022; Chest Pa And Lat (2 Views) dated 02/11/2022; Chest Si ngle View dated 01/29/2022; Chest Single View dated 01/16/2022 FINDINGS: Portable technique limits examination quality. Mildly prominent interstitial markings seen. This may indicate a viral infection or bronchitis. The h eart is normal in size. No displaced fractures.
[2022-07-18 18:25] LABS: Specific Gravity 1.011 (1.005-1.030); Urine Bacteria None Seen /HPF (<20); Urine Bilirubin NEGATIVE (Negative); Urine Blood 3+ (OVER) (Negative); Urine Clarity Extremely Turbid (Clear); Urine Color Light-Yellow (Yellow); Urine Glucose NEGATIVE (Negative); Urine Mucus Slight /HPF (None Seen); Urine Protein NEGATIVE (Negative); Urine Urobilinogen Normal (Normal); Urine pH 6.5 (5.0-7.0)
[2022-07-18 18:30] LABS: Absolute Lymphocytes (CBC) 0.6 K/uL (0.7-4.9); Hematocrit 31.1 % (36.0-45.0); Lymphocytes % 8.8 % (15.3-44.8); MPV 8.4 fL (7.6-11.3); RBC Red Blood Cell Count 4.32 M/uL (3.86-4.86)
[2022-07-18 18:52] LABS: ALT/SGPT 41 U/L (13-56); AST/SGOT 20 U/L (15-37); Albumin 3.7 g/dL (3.4-5.0); Alkaline Phosphatase 162 U/L (45-117); BUN Blood Urea Nitrogen 5 mg/dL (7-18); Bicarbonate 27 mEq/L (21-32); Bilirubin Total 0.3 mg/dL (0.2-1.0); Glomerular Filtration Rate 100 ml/min (=/>90); Glucose Level 101 mg/dL (74-106); Magnesium 1.9 mg/dL (1.6-2.4); NT PRO-BNP 119 pg/mL (<125); Potassium 3.5 mEq/L (3.5-5.1); Protein, Total 7.2 g/dL (6.4-8.2); Sodium Level 137 mEq/L (136-145); Troponin High Sensitivity 3.8 pg/mL (<58.9)
[2022-07-18 19:01] LABS: Bilirubin Direct < 0.1 mg/dL (0-0.2); Bilirubin Indirect, Calculated ND mg/dL (0.2-0.8); SARS-CoV-2 Antigen Rapid Res Positive (Negative)
[2022-07-18] MEDS ORDERED: IPRATROPIUM BROM 0.5MG/2.5ML ONE (19:20)
[2022-07-18] MEDS ORDERED: ALBUTEROL 2.5 MG/3 ML NEB SOL ONE (19:20)
--- NOTE | 2022-07-18 21:11 | RAD REPORT ---
EXAM DESCRIPTION: US - Extrem Venous W Compress Diego - 07/18/2022 9:04 pm CLINICAL HISTORY: PAIN Bilateral leg edema and swelling. COMPARISON: <Comparisons> TECHNIQUE: Real-time sonographic interrogation of the left and right lower extremity deep venous sys tems was performed. FINDINGS: Normal compressibility, flow augmentation, phasic flow and spontaneous flow is identified in both the left and right lower extremity deep venous systems. IMPRESSION: No sonographic evidence of left or right lower extremity deep venous thrombosis.
--- NOTE | 2022-07-18 21:38 | EDPHYS ---
Physician Documentation [facility] Name: Shivani Lagunas Age: 47 yrs Sex: Female : 1975 Arrival Date: 07/18/2022 Time: 17:04 Bed Treatment Private MD: Bal Coombs HPI: 07/18 17:30 This 47 yrs old Female presents to ER via Ambulatory with complaints of Chest cp Tightness, Leg Pain. 17:30 The patient presents with pain that is acute. Associated signs and symptoms: Pertinent cp positives: chest pain. Historical: - Allergies: 17:13 Sulfa (Sulfonamide Antibiotics); aa5 - PMHx: 17:13 Bipolar disorder; Hypertensive disorder; Schizophrenia; aa5 - PSHx: 17:13 Cholecystectomy; section; aa5 - Immunization history:: Adult Immunizations unknown. - Social history:: Smoking status: Patient denies any tobacco usage or history of. ROS: 17:35 Constitutional: Negative for body aches, fever, poor PO intake. cp 17:35 Cardiovascular: Positive for chest tightness. cp 17:35 Respiratory: Positive for cough, shortness of breath, Negative for wheezing. 17:35 Abdomen/GI: Negative for abdominal pain, vomiting, diarrhea, constipation. 17:35 Back: Positive for pain at rest, pain with movement, Negative for injury or acute deformity. 17:35 ENT: Negative for drainage from ear(s), ear pain, difficulty swallowing, difficulty cp handling secretions. Exam: 17:27 ECG was reviewed by the Attending Physician. cp Vital Signs: 17:13 BP 156 / 70; Pulse 93; Resp 16 S; Temp 99.5(TE); Pulse Ox 99% on R/A; Weight 97.52 kg aa5 (R); Height 5 ft. 6 in. (R); 19:22 BP 138 / 71; Pulse 91; Resp 18; Pulse Ox 97% on R/A; mb9 22:06 BP 135 / 88; Pulse 84; Resp 18; Pulse Ox 100% on R/A; mb9 17:13 Body Mass Index 34.70 (97.52 kg, 167.64 cm) aa5 MDM: 17:18 Patient medically screened. cp 07/18 17:26 Order name: Basic Metabolic Panel; Complete Time: 19:17 cp 07/18 17:26 Order name: CBC with Diff; Complete Time: 19:17 cp / 19:17 Interpretation: Normal except: HGB 9.9; HCT 31.1; MCV 72.0; MCH 23.0; RDW 19.8; LYM% cp 8.8; EOSINOPHIL % 13.9; LYMA 0.6; EOSA 0.9. 07/18 17:26 Order name: LFT's; Complete Time: 19:17 cp / 19:17 Interpretation: Normal except: ALK 162. 07/18 17:26 Order name: Magnesium; Complete Time: 19:17 cp 07/18 17:26 Order name: NT PRO-BNP; Complete Time: 19:17 cp 07/18 17:26 Order name: Troponin HS; Complete Time: 19:17 cp 07/18 17:26 Order name: Urinalysis W/Microscopic; Complete Time: 19:17 cp 07/18 17:26 Order name: SARS RAPID; Complete Time: 19:17 cp 07/18 19:17 Interpretation: Abnormal: SARS RESULT Positive. 07/18 17:26 Order name: Influenza Screen (a \T\ B); Complete Time: 19:17 cp 07/18 19:19 Order name: LAB Add On 07/18 19:19 Order name: D-Dimer; Complete Time: 20:59 cp 07/18 20:59 Interpretation: Reviewed. 07/18 17:26 Order name: XRAY Chest (1 view); Complete Time: 19:17 cp / 19:19 Order name: US Extremity Venous W Compression Diego; Complete Time: 21:14 cp / 21:14 Interpretation: Report reviewed. 07/18 17:26 Order name: EKG; Complete Time: 17:27 cp 07/18 17:24 Order name: EKG - Nurse/Tech; Complete Time: 17:24 aa5 07/18 17:26 Order name: Cardiac monitoring; Complete Time: 19:11 cp 07/18 17:26 Order name: IV Saline Lock; Complete Time: 19:12 cp 07/18 17:26 Order name: Labs collected and sent; Complete Time: 19:12 cp 07/18 17:26 Order name: O2 Per Protocol; Complete Time: 19:12 cp 07/18 17:26 Order name: O2 Sat Monitoring; Complete Time: 19:12 cp EC:27 Rate is 93 beats/min. Rhythm is regular. SD interval is normal. QRS interval is normal. cp QT interval is normal. T waves are Inverted in lead aVR. Interpreted by me. Reviewed by me. Administered Medications: 19:23 Drug: Ipratropium Inhalation Aerosol 0.5 mg Route: Inhalation; mb9 19:24 Drug: Albuterol Inhalation 2.5 mg Route: Inhalation; mb9 Disposition Summary: 07/18/22 21:37 Discharge Ordered Location: Home cp Problem: new cp Symptoms: have improved cp Condition: Stable cp Diagnosis - Chest pain, unspecified cp - Dorsalgia, unspecified cp - SARS-associated coronavirus as the cause of diseases classified elsewhere cp - Pain in leg, unspecified cp Followup: cp - With: Private Physician - When: 2 - 3 days - Reason: Worsening of condition Discharge Instructions: - Discharge Summary Sheet cp - Aspirin and Your Heart cp - COVID-19 cp - How to Protect Yourself and Others - [facility] (04/08/2021) cp - 10 Things You Can Do to Manage Your COVID-19 Symptoms at Home - [facility] (08/27/2020) cp - COVID-19: Quarantine and Isolation - [facility] (05/11/2021) cp - COVID-19: What to Do If You Are Sick - [facility] (05/03/2021) cp Forms: - Medication Reconciliation Form cp - Thank You Letter cp - Antibiotic Education cp - Prescription Opioid Use cp Prescriptions: - Bromfed DM 2-30-10 mg/5 mL Oral syrup - administer 10 milliliter by ORAL route every 6 hours; 180 milliliter; Refills: cp 0, Product Selection Permitted - Paxlovid 300 mg (150 mg x 2)-100 mg Oral Tablet, Dose Pack - take 1 dose pack by ORAL route per package directions for 5 days; 30 tablet; cp Refills: 0, Product Selection Permitted - Ibuprofen 800 mg Oral Tablet - take 1 tablet by ORAL route every 8 hours As needed take with food; 30 tablet; cp Refills: 0, Product Selection Permitted Signatures: Dispatcher [employer] Soha Harris RN RN aa5 Bal Sagastume PA PA cp Breneman, Mary Beth RN RN mb9
--- NOTE | 2022-07-18 21:38 | ER ---
Nurse's Notes [facility] Name: Shivani Lagunas Age: 47 yrs Sex: Female : 1975 Arrival Date: 07/18/2022 Time: 17:04 Bed Treatment Private MD: Diagnosis: Chest pain, unspecified;Dorsalgia, unspecified;SARS-associated coronavirus as the cause of diseases classified elsewhere;Pain in leg, unspecified Presentation: 07/18 17:13 Chief complaint: Patient states: Pt states "I just started with a cough and I tested aa5 negative for covid at home". Pt reports chest tightness since last night and toi leg pain today. Pt reports fever up to 101.9*F today and reports taking Tylenol. Coronavirus screen: cough unrelated to allergies, fever. Ebola Screen: Patient denies travel to an Ebola-affected area in the 21 days before illness onset. Initial Sepsis Screen: Does the patient meet any 2 criteria? No. Patient's initial sepsis screen is negative. Does the patient have a suspected source of infection? No. Patient's initial sepsis screen is negative. Risk Assessment: Do you want to hurt yourself or someone else? Patient reports no desire to harm self or others. Onset of symptoms was July 2022. 17:13 Acuity: ALICIA 3 aa5 17:13 Method Of Arrival: Ambulatory aa5 Historical: - Allergies: 17:13 Sulfa (Sulfonamide Antibiotics); aa5 - PMHx: 17:13 Bipolar disorder; Hypertensive disorder; Schizophrenia; aa5 - PSHx: 17:13 Cholecystectomy; section; aa5 - Immunization history:: Adult Immunizations unknown. - Social history:: Smoking status: Patient denies any tobacco usage or history of. Screenin:23 [facility] ED Fall Risk Assessment (Adult) History of falling in the last 3 months, mb9 including since admission No falls in past 3 months (0 pts) Confusion or Disorientation No (0 pts) Intoxicated or Sedated No (0 pts) Impaired Gait No (0 pts) Mobility Assist Device Used No (0 pt) Altered Elimination No (0 pt) Score/Fall Risk Level 0 - 2 = Low Risk Oriented to surroundings, Maintained a safe environment, Educated pt \\T\\ family on fall prevention, incl call for assistance when getting out of bed. Abuse screen: Denies threats or abuse. Nutritional screening: No deficits noted. Tuberculosis screening: No symptoms or risk factors identified. Assessment: 19:24 General: Appears in no apparent distress. Behavior is calm, cooperative. Pain: mb9 Complains of pain in chest Pain does not radiate. Pain currently is 2 out of 10 on a pain scale. Quality of pain is described as tightness Pain began gradually. Neuro: [place] Agitation-Sedation Scale (RASS): 0 - Alert and Calm Level of Consciousness is awake, alert, obeys commands, Oriented to person, place, time, situation, Appropriate for age. Cardiovascular: Patient's skin is warm and dry. Respiratory: Airway is patent Respiratory effort is even, unlabored, Respiratory pattern is regular, symmetrical. Respiratory: Reports shortness of breath cough that is. Derm: Skin is pink, warm \\T\\ dry. Musculoskeletal: Range of motion: intact in all extremities. 20:57 Reassessment: No changes from previously documented assessment. Patient and/or family mb9 updated on plan of care and expected duration. Pain level reassessed. Patient is alert, oriented x 3, equal unlabored respirations, skin warm/dry/pink. 22:06 Reassessment: Patient and/or family updated on plan of care and expected duration. Pain mb9 level reassessed. Patient is alert, oriented x 3, equal unlabored respirations, skin warm/dry/pink. Patient states feeling better. Patient states symptoms have improved. Vital Signs: 17:13 BP 156 / 70; Pulse 93; Resp 16 S; Temp 99.5(TE); Pulse Ox 99% on R/A; Weight 97.52 kg aa5 (R); Height 5 ft. 6 in. (R); 19:22 BP 138 / 71; Pulse 91; Resp 18; Pulse Ox 97% on R/A; mb9 22:06 BP 135 / 88; Pulse 84; Resp 18; Pulse Ox 100% on R/A; mb9 17:13 Body Mass Index 34.70 (97.52 kg, 167.64 cm) aa5 ED Course: 17:07 Patient arrived in ED. rg4 17:13 Arm band placed on. aa5 17:15 Triage completed. aa5 17:17 [facility] cp 17:17 Bal Dowling MD is Attending Physician. cp 17:21 EKG completed in triage. Results shown to MD. lashonda 18:15 XRAY Chest (1 view) In Process Unspecified. EDMS 19:11 Iona Conklin, RN is Primary Nurse. mb9 19:25 Placed in gown. Bed in low position. Call light in reach. Side rails up X 1. Client mb9 placed on continuous cardiac and pulse oximetry monitoring. NIBP monitoring applied. 19:25 No provider procedures requiring assistance completed. Patient maintains SpO2 mb9 saturation greater than 95% on room air. 21:06 US Extremity Venous W Compression Toi In Process Unspecified. EDMS 22:07 IV discontinued, intact, bleeding controlled, No redness/swelling at site. Pressure mb9 dressing applied. Administered Medications: 19:23 Drug: Ipratropium Inhalation Aerosol 0.5 mg Route: Inhalation; mb9 19:24 Drug: Albuterol Inhalation 2.5 mg Route: Inhalation; mb9 Medication: 19:26 VIS not applicable for this client. mb9 Outcome: 21:37 Discharge ordered by MD. kirk 22:07 Discharged to home ambulatory. mb9 22:07 Condition: stable 22:07 Discharge instructions given to patient, Instructed on discharge instructions, follow up and referral plans. Demonstrated understanding of instructions, follow-up care, medications, Prescriptions given X 3. 22:07 Patient left the ED. mb9 Signatures: Dispatcher [employer] EDSoah Alvarez, RN RN aa5 Bal Sagastume PA PA cp Garcia, Rubi rg4 Iona Conklin, RN RN mb9
[2022-07-18 23:25] VITALS: TEMP 99.5
[2022-07-18 23:28] VITALS: BP 135/88; O2SAT 100
--- NOTE | 2022-07-19 07:15 | EKG ---
Test Date: 2022-07-18 Test Time: 17:21:39 Bridge Operator Slip: ADRI MEASUREMENT RESULTS: Intervals: Rate: 93 ID: [id number] QRSD: 86 QT: 360 QTc: 447 Calder: P: 54 ID: [id number] QRS: 44 T: 24 INTERPRETIVE STATEMENTS: Normal sinus rhythm Normal ECG Compared to ECG 05/04/2022 16:32:05 No significant changes Electronically Signed On 07-19-22 07:13:57 CDT by Lonnie Laurent
== END 2022-07-18 22:07 | disposition home or self-care (01) ==
LOC: ER 17:04
DX: U07.1 COVID-19 (principal); M54.9 Dorsalgia, unspecified; M79.605 Pain in left leg; M79.604 Pain in right leg
CPT/HCPCS: 36415; 71045; 80048; 80076; 81001; 83735; 83880; 84484; 85025; 85379; 87804; 87811; 93005; 93970; 99284; J7613; J7644

== ENCOUNTER 2022-09-17 10:57 | Emergency (ER) | payer OTHER, SELFPAY ==
--- OUTSIDE RECORDS SUMMARY | 2022-09-17 11:06 | XMS REPORT | Continuity of Care Document ---
:1975 Author Organization [facility] t Address [address] [facility] [address] [place] [address] Care Team Providers Name Role Phone PCP, PATIENT DOES NOT HAVE A Primary Care Physician Unavaila UNA Thorne Attending Clinician Unavailable UNA HESTER Attending Clinician Unavailable Pathology Attending Clinician Unavailable Pcp-Lab Attending Clinician Unavailable Doctor Unassigned, [place] Attending Clinician Unavailable DERRELL DIAS Attending Clinician [...] Policy Number Effective Date Expiration Date S [facility] MEDICAID SSI PENDING 2021 PENDING 00:00:00 Problems Condition Condition Condition Status Onset Resolution Last Treating Co mments Source Name Details Category Date Date Treatment Clinician Date No known No known Disease Unive rs active active ity of problems problems [facility] Allergies, Adverse Reactions, Alerts Allergy Allergy Status [...] Start Date Stop Date Quantity Comments Source Gender identity [facility]it y [facility] Sexual orientation Univer sity [facility] History of Social 2022-07-26 2022-07-26 Univers ity of function 00:00:00 00:00:00 [facility] Exposure to 2022-02-05 2022-02-15 Not sure [facility] SARS-CoV-2 (event) 00:00:00 08:57:00 [facility] Tobacco use and 2021-08-24 2021-08-24 Smokeless Universit y of exposure 00:00:00 00:00:00 tobacco non-user [facility] Sex Assigned At [birth year] Universit [facility] of 00:00:00 00:00:00 [facility] Smoking Status Start Date Stop Date Source Never smoked tobacco [facility] Medications Ordered Filled Start Stop Current Ordering Indication Dosage Frequency Signature Comments Components Source Medication Medication Date Date Medication? Clinician (SIG) Name Name lithium Yes [id number] 900mg Take 2 Uni vers carbonate 8-02 tablets by ity of CR 450 mg 00:00: [facility] bed[facility]. Medica l Branch busPIRone 2022-0 Yes [id number] 10mg Take 1 Un cristhian 10 mg 8-02 tablet by ity of tablet 00:00: mouth in [place] 00 the Medical morning Branch and 1 tablet in the evening. lamoTRIgine 2022-0 Yes [id number] 100mg Take 1 Univers 100 mg 8-02 tablet by ity of tablet 00:00: mouth in [place] 00 the Medical morning Branch and 1 tablet in the evening. clonazePAM 2022-0 Yes [id number] Take 1 U nivers 1 mg tablet 7-19 tablet by ity of 00:00: mouth [place] 00 twice Medical daily as Branch needed for anxiety. clonazePAM 2022-0 Yes [id number] Take 1 U nivers 1 mg tablet 7-19 tablet by ity of 00:00: mouth [place] 00 twice Medical daily as Branch needed for anxiety. clonazePAM 2022-0 Yes [id number] Take 1 U nivers 1 mg tablet 7-19 tablet by ity of 00:00: mouth [place] 00 twice Medical daily as Branch needed for anxiety. clonazePAM 2022-0 Yes [id number] Take 1 U nivers 1 mg tablet 7-19 tablet by ity of 00:00: mouth [place] 00 twice Medical daily as Branch needed for anxiety. clonazePAM 2022-0 Yes [id number] Take 1 U nivers 1 mg tablet 7-19 tablet by ity of 00:00: mouth [place] 00 twice Medical daily as Branch needed for anxiety. FUROSEMIDE 2022-0 3- No 40mg Take 40 mg Univers ORAL -26 07-14 by mouth ity of 09:33: 00:00 daily. [place] 26 :00 Medical Branch FUROSEMIDE 3-0 3- No 40mg Take 40 mg Univers ORAL 6-26 07-14 by mouth ity of 09:33: 00:00 daily. [place] 26 :00 Medical Branch FUROSEMIDE 3-0 2023- No 40mg Take 40 mg Univers ORAL 6-26 07-14 by mouth ity of 09:33: 00:00 daily. [place] 26 :00 Medical Branch FUROSEMIDE 3-0 2023- No 40mg Take 40 mg Univers ORAL -26 07-14 by mouth ity of 09:33: 00:00 daily. [place] 26 :00 Medical Branch DULoxetine 2023-0 Yes [id number] 60mg Take 1 U nivers 60 mg 6-14 capsule by ity of capsule 00:00: mouth in [place] 00 the Medical morning Branch and 1 capsule in the evening. lamoTRIgine 3-0 Yes [id number] 100mg Take 1 [facility] 100 mg 6-14 tablet by ity of tablet 00:00: mouth in [place] 00 the Medical morning Branch and 1 tablet in the evening. lithium 3-0 Yes [id number] 900mg Take 2 Uni vers carbonate 6-14 tablets by [place] of CR 450 mg 00:00[place] 00 bedtime. Medica l Branch traZODone 3-0 Yes [id number] 50mg Take 1 U nivers 50 mg 6-14 tablet by ity of tablet 00:00: mouth at [place] [address] bedtime. Medical May cut Branch tablet in half. busPIRone 3-0 Yes [id number] 10mg Take 1 Un cristhian 10 mg 6-14 tablet by ity of tablet 00:00: mouth in [place] 00 the Medical morning Branch and 1 tablet in the evening. DULoxetine 3-0 Yes [id number] 60mg Take 1 U nivers 60 mg 6-14 capsule by ity of capsule 00:00: mouth in [place] 00 the Medical morning Branch and 1 capsule in the evening. lamoTRIgine 2022-0 Yes [id number] 100mg Take 1 [facility] 100 mg 6-14 tablet by ity of tablet 00:00: mouth in [place] 00 the Medical morning Branch and 1 tablet in the evening. lithium 3-0 Yes [id number] 900mg Take 2 Uni vers carbonate 6-14 tablets by [place]y of CR 450 mg 00:00: [place] 00 bedtime. Medica l Branch traZODone 3-0 Yes [id number] 50mg Take 1 U nivers 50 mg 6-14 tablet by ity of tablet 00:00: mouth at [place] 00 bedtime. Medical May cut Branch tablet in half. busPIRone 3-0 Yes [id number] 10mg Take 1 Un cristhian 10 mg 6-14 tablet by ity of tablet 00:00: mouth in [place] 00 the Medical morning Branch and 1 tablet in the evening. DULoxetine 3-0 Yes [id number] 60mg Take 1 U nivers 60 mg 6-14 capsule by ity of capsule 00:00: mouth in [place] 00 the Medical morning Branch and 1 capsule in the evening. lamoTRIgine 2023-0 Yes [id number] 100mg Take 1 [facility] 100 mg 6-14 tablet by ity of tablet 00:00: mouth in [place] 00 the Medical morning Branch and 1 tablet in the evening. lithium 3-0 Yes [id number] 900mg Take 2 Uni vers carbonate 6-14 tablets by [facility]y of CR 450 mg 00:00: [place] 00 bedtime. Medica l Branch traZODone 3-0 Yes [id number] 50mg Take 1 U nivers 50 mg 6-14 tablet by ity of tablet 00:00: mouth at [place] [address] bedtime. June cut Branch tablet in half. busPIRone 3-0 Yes [id number] 10mg Take 1 Un cristhian 10 mg 6-14 tablet by ity of tablet 00:00: mouth in [place] 00 the Medical morning Branch and 1 tablet in the evening. DULoxetine 3-0 Yes [id number] 60mg Take 1 U nivers 60 mg 6-14 capsule by ity of capsule 00:00: mouth in [place] [address] the Medical morning Branch and 1 capsule in the evening. lamoTRIgine 3-0 Yes [id number] 100mg Take 1 Univers 100 mg 6-14 tablet by ity of tablet 00:00: mouth in [place] 00 the Medical morning Branch and 1 tablet in the evening. lithium 3-0 Yes [id number] 900mg Take 2 Uni vers carbonate 6-14 tablets by [facility]y of CR 450 mg 00:00: [place] 00 bedtime. Medica l Branch traZODone 3-0 Yes [id number] 50mg Take 1 U nivers 50 mg 6-14 tablet by ity of tablet 00:00: mouth at [place] [address] bedtime. June cut Branch tablet in half. busPIRone 2023-0 Yes [id number] 10mg Take 1 Un cristhian 10 mg 6-14 tablet by ity of tablet 00:00: mouth in [place] [address] the Medical morning Branch and 1 tablet in the evening. DULoxetine 2023-0 Yes [id number] 60mg Take 1 U nivers 60 mg 6-14 capsule by ity of capsule 00:00: mouth in [place] [address] the Medical morning Branch and 1 capsule in the evening. lamoTRIgine 2023-0 Yes [id number] 100mg Take 1 Univers 100 mg 6-14 tablet by ity of tablet 00:00: mouth in [place] 00 the Medical morning Branch and 1 tablet in the evening. lithium 3-0 Yes [id number] 900mg Take 2 Uni vers carbonate 6-14 tablets by [facility]y of CR 450 mg 00:00: [place] 00 bedtime. Medica l Branch traZODone 3-0 Yes [id number] 50mg Take 1 U nivers 50 mg 6-14 tablet by ity of tablet 00:00: mouth at [place] 00 bedtime. June cut Branch tablet in half. busPIRone 3-0 Yes [id number] 10mg Take 1 Un cristhian 10 mg 6-14 tablet by ity of tablet 00:00: mouth in [place] 00 the Medical morning Branch and 1 tablet in the evening. DULoxetine 3-0 Yes [id number] 60mg Take 1 U nivers 60 mg 6-14 capsule by ity of capsule 00:00: mouth in [place] 00 the Medical morning Branch and 1 capsule in the evening. lamoTRIgine 2022-0 Yes [id number] 100mg Take 1 Univers 100 mg 6-14 tablet by ity of tablet 00:00: mouth in [place] 00 the Medical morning Branch and 1 tablet in the evening. lithium 3-0 Yes [id number] 900mg Take 2 Uni vers carbonate 6-14 tablets by ity of CR 450 mg 00:00: [place] 00 bedtime. Medica l Branch traZODone 3-0 Yes [id number] 50mg Take 1 U nivers 50 mg 6-14 tablet by ity of tablet 00:00: mouth at [place] 00 bedtime. June cut Branch tablet in half. busPIRone 3-0 Yes [id number] 10mg Take 1 Un cristhian 10 mg 6-14 tablet by ity of tablet 00:00: mouth in [place] 00 the Medical morning Branch and 1 tablet in the evening. DULoxetine 2023-0 Yes [id number] 60mg Take 1 U nivers 60 mg 6-14 capsule by ity of capsule 00:00: mouth in [place] [address] the Medical morning Branch and 1 capsule in the evening. lamoTRIgine 2023-0 Yes [id number] 100mg Take 1 Univers 100 mg 6-14 tablet by ity of tablet 00:00: mouth in [place] 00 the Medical morning Branch and 1 tablet in the evening. lithium 2023-0 Yes [id number] 900mg Take 2 Uni vers carbonate 6-14 tablets by ity of CR 450 mg 00:00: [place] 00 bedtime. Medica l Branch traZODone 2023-0 Yes [id number] 50mg Take 1 U nivers 50 mg 6-14 tablet by ity of tablet 00:00: mouth at [place] 00 bedtime. Medical May cut Branch tablet in half. busPIRone 3-0 Yes [id number] 10mg Take 1 Un cristhian 10 mg 6-14 tablet by ity of tablet 00:00: mouth in [place] 00 the Medical morning Branch and 1 tablet in the evening. DULoxetine 3-0 Yes [id number] 60mg Take 1 U nivers 60 mg 6-14 capsule by ity of capsule 00:00: mouth in [place] 00 the Medical morning Branch and 1 capsule in the evening. lamoTRIgine 3-0 Yes [id number] 100mg Take 1 Univers 100 mg 6-14 tablet by ity of tablet 00:00: mouth in [place] 00 the Medical morning Branch and 1 tablet in the evening. lithium 3-0 Yes [id number] 900mg Take 2 Uni vers carbonate 6-14 tablets by ity of CR 450 mg 00:00: [facility] bedtime. Medica l Branch traZODone 3-0 Yes [id number] 50mg Take 1 U nivers 50 mg 6-14 tablet by ity of tablet 00:00: mouth at [place] 00 bedtime. Medical June cut Branch tablet in half. busPIRone 2023-0 Yes [id number] 10mg Take 1 Un cristhian 10 mg 6-14 tablet by ity of tablet 00:00: mouth in [place] 00 the Medical morning Branch and 1 tablet in the evening. DULoxetine 2023-0 Yes [id number] 60mg Take 1 U nivers 60 mg 6-14 capsule by ity of capsule 00:00: mouth in [place] [address] the Medical morning Branch and 1 capsule in the evening. lamoTRIgine 2023-0 Yes [id number] 100mg Take 1 Univers 100 mg 6-14 tablet by ity of tablet 00:00: mouth in [place] 00 the Medical morning Branch and 1 tablet in the evening. lithium 2023-0 Yes [id number] 900mg Take 2 Uni vers carbonate 6-14 tablets by ity of CR 450 mg 00:00: mouth at [facility] 00 bedtime. Medica l Branch traZODone 3-0 Yes [id number] 50mg Take 1 U nivers 50 mg 6-14 tablet by ity of tablet 00:00: mouth at [place] 00 bedtime. Medical May cut Branch tablet in half. busPIRone 2022-0 Yes [id number] 10mg Take 1 Un cristhian 10 mg 6-14 tablet by ity of tablet 00:00: mouth in [place] 00 the Medical morning Branch and 1 tablet in the evening. DULoxetine 3-0 Yes [id number] 60mg Take 1 U nivers 60 mg 6-14 capsule by ity of capsule 00:00: mouth in [place] 00 the Medical morning Branch and 1 capsule in the evening. traZODone 2022-0 Yes [id number] 50mg Take 1 U nivers 50 mg 6-14 tablet by ity of tablet 00:00: mouth at [place] 00 bedtime. Medical May cut Branch tablet in half. lamoTRIgine 2022-0 3- No [id number] 100mg Take 1 Univers 100 mg 6-14 08-02 tablet by ity of tablet 00:00: 00:00 mouth in [place] 00 :00 the Medical morning Branch and 1 tablet in the evening. lithium 2022-0 3- No [id number] 900mg Take 2 Un cristhian carbonate 6-14 08-02 tablets by ity of CR 450 mg 00:00: 00:00 mouth at [place] SR tablet 00 :00 bedtime. Medica l Branch busPIRone 2022-0 2023- No [id number] 10mg Take 1 U nivers 10 mg 6-14 08-02 tablet by ity of tablet 00:00: 00:00 mouth in [place] 00 :00 the Medical morning Branch and 1 tablet in the evening. lamoTRIgine 3-0 Yes [id number] 100mg Take 1 Univers 100 mg 6-07 tablet by ity of tablet 00:00: mouth in [place] 00 the Medical morning Branch and 1 tablet in the evening. lamoTRIgine 3-0 Yes [id number] 100mg Take 1 Univers 100 mg 6-07 tablet by ity of tablet 00:00: mouth in [place] 00 the Medical morning Branch and 1 tablet in the evening. lamoTRIgine 2023-0 2023- No [id number] 100mg Take 1 Univers 100 mg 07-19 tablet by ity of tablet 00:00: 00:00 mouth in [place] 00 :00 the Medical morning Branch and 1 tablet in the evening. lamoTRIgine 2023-0 2023- No [id number] 100mg Take 1 Univers 100 mg 07-19 tablet by ity of tablet 00:00: 00:00 mouth in [place] 00 :00 the Medical morning Branch and 1 tablet in the evening. lamoTRIgine 2023-0 2023- No [id number] 100mg Take 1 Univers 100 mg 07-19 tablet by ity of tablet 00:00: 00:00 mouth in [place] 00 :00 the Medical morning Branch and 1 tablet in the evening. lamoTRIgine 2023-0 2023- No [id number] 100mg Take 1 Univers 100 mg 07-19 tablet by ity of tablet 00:00: 00:00 mouth in [place] 00 :00 the Medical morning Branch and 1 tablet in the evening. clonazePAM 2023-0 Yes [id number] Take 1 U nivers 1 mg tablet 5-24 tablet by ity of 00:00: mouth [place] 00 twice Medical daily as Branch needed for anxiety. clonazePAM 2023-0 Yes [id number] Take 1 U nivers 1 mg tablet 5-24 tablet by ity of 00:00: mouth [place] 00 twice Medical daily as Branch needed for anxiety. clonazePAM 2023-0 Yes [id number] Take 1 U nivers 1 mg tablet 5-24 tablet by ity of 00:00: mouth [place] 00 twice Medical daily as Branch needed for anxiety. clonazePAM 2023-0 Yes [id number] Take 1 U nivers 1 mg tablet 5-24 tablet by ity of 00:00: mouth [place] 00 twice Medical daily as Branch needed for anxiety. clonazePAM 2023-0 Yes [id number] Take 1 U nivers 1 mg tablet 5-24 tablet by ity of 00:00: mouth [place] 00 twice Medical daily as Branch needed for anxiety. clonazePAM 2023-0 Yes [id number] Take 1 U nivers 1 mg tablet 5-24 tablet by ity of 00:00: mouth [place] 00 twice Medical daily as Branch needed for anxiety. clonazePAM 2023-0 Yes [id number] Take 1 U nivers 1 mg tablet 5-24 tablet by ity of 00:00: mouth [place] 00 twice Medical daily as Branch needed for anxiety. clonazePAM 3-0 Yes [id number] Take 1 U nivers 1 mg tablet 5-24 tablet by ity of 00:00: mouth [place] 00 twice Medical daily as Branch needed for anxiety. clonazePAM 2022-0 2022- No [id number] Take 1 Univers 1 mg tablet 5-04 09-18 tablet by it y of 00:00: 00:00 mouth [place] 00 :00 twice Medical daily as Branch needed for anxiety. clonazePAM 2022-0 2022- No [id number] Take 1 Univers 1 mg tablet 5-04 09-18 tablet by it y of 00:00: 00:00 mouth [place] 00 :00 twice Medical daily as Branch needed for anxiety. clonazePAM 2022-0 2022- No [id number] Take 1 Univers 1 mg tablet 5-04 09-18 tablet by it y of 00:00: 00:00 mouth [place] 00 :00 twice Medical daily as Branch needed for anxiety. clonazePAM 2022-0 2022- No [id number] Take 1 Univers 1 mg tablet 5-04 09-18 tablet by it y of 00:00: 00:00 mouth [place] 00 :00 twice Medical daily as Branch needed for anxiety. clonazePAM 2022-0 2022- No [id number] Take 1 Univers 1 mg tablet 5-04 09-18 tablet by it y of 00:00: 00:00 mouth [place] 00 :00 twice Medical daily as Branch needed for anxiety. DULoxetine 2023-0 Yes [id number] 60mg Take 1 U nivers 60 mg 5-09 capsule by ity of capsule 00:00: mouth in [place] 00 the Medical morning Branch and 1 capsule in the evening. lithium 2023-0 Yes [id number] 900mg Take 2 Uni vers carbonate 5-09 tablets by ity of CR 450 mg 00:00: mouth at [facility] s SR tablet 00 bedtime. Medica l Branch DULoxetine 2023-0 Yes [id number] 60mg Take 1 U nivers 60 mg 5-09 capsule by ity of capsule 00:00: mouth in [place] 00 the Medical morning Branch and 1 capsule in the evening. lithium 2023-0 Yes [id number] 900mg Take 2 Uni vers carbonate 5-09 tablets by ity of CR 450 mg 00:00: [place] tablet 00 bedtime. [facility] DULoxetine 2022-0 Yes [id number] 60mg Take 1 U nivers 60 mg 5-09 capsule by ity of capsule 00:00: mouth in [place] 00 the Medical morning Branch and 1 capsule in the evening. lithium 2022-0 Yes [id number] 900mg Take 2 Uni vers carbonate 5-09 tablets by ity of CR 450 mg 00:00: [place] [facility] Yes [id number] 60mg Take 1 U nivers 60 mg 5-09 capsule by ity of capsule 00:00: mouth in [place] 00 the Medical morning Branch and 1 capsule in the evening. lithium 2022-0 Yes [id number] 900mg Take 2 Uni vers carbonate 5-09 tablets by ity of CR 450 mg 00:00: [place] tablet 00 bedtime. [facility] DULoxetine 2022-0 Yes [id number] 60mg Take 1 U nivers 60 mg 5-09 capsule by ity of capsule 00:00: mouth in [place] 00 the Medical morning Branch and 1 capsule in the evening. lithium 2022-0 Yes [id number] 900mg Take 2 Uni vers carbonate 5-09 tablets by ity of CR 450 mg 00:00: mouth [place] tablet 00 bedtime. [facility] DULoxetine 0 2022- No [id number] 60mg Take 1 Univers 60 mg 5- 06-14 capsule by ity of capsule 00:00: 00:00 mouth in [place] 00 :00 the Medical morning Branch and 1 capsule in the evening. lithium 2022-0 2022- No [id number] 900mg Take 2 Un cristhian carbonate 5-09 06-14 tablets by ity of CR 450 mg 00:00: 00:00 mouth at [place] SR tablet 00 :00 [facility]. [facility] DUL[facility] 2022- No [id number] 60mg Take 1 Univers 60 mg 5-09 06-14 capsule by ity of capsule 00:00: 00:00 mouth in [place] 00 :00 the Medical morning Branch and 1 capsule in the evening. lithium 2022-0 2022- No [id number] 900mg Take 2 Un cristhian carbonate 5-09 06-14 tablets by ity of CR 450 mg 00:00: 00:00 mouth at [place] SR tablet 00 :00 bedtime. Medica l Branch DULoxetine 2022-0 2022- No [id number] 60mg Take 1 Univers 60 mg 06-20- capsule by ity of capsule 00:00: 00:00 mouth in [place] 00 :00 the Medical morning Branch and 1 capsule in the evening. lithium 2022-0 2022- No [id number] 900mg Take 2 Un cristhian carbonate 06-2014 tablets by ity of CR 450 mg 00:00: 00:00 mouth at [place] SR tablet 00 :00 bedtime. Medica l Branch DULoxetine 2022-0 2022- No [id number] 60mg Take 1 [facility] 60 mg 06-20 capsule by ity of capsule 00:00: 00:00 mouth in [place] 00 :00 the Medical morning Branch and 1 capsule in the evening. lithium 2022-0 2022- No [id number] 900mg Take 2 Un cristhian carbonate 06-20 tablets by ity of CR 450 mg 00:00: 00:00 mouth at [facility] as SR tablet 00 :00 bedtime. Medica l Branch DULoxetine 2022-0 Yes [id number] 60mg Take 1 U nivers 60 mg 3-09 capsule by ity of capsule 00:00: mouth in [place] 00 the Medical morning Branch and 1 capsule in the evening. clonazePAM 2022-0 Yes [id number] Take 1 U nivers 1 mg tablet 3-09 tablet by ity of 00:00: mouth [place] 00 twice Medical daily as Branch needed for anxiety. lamoTRIgine 2022-0 Yes [id number] 100mg Take 1 [facility] 100 mg 3-09 tablet by ity of tablet 00:00: mouth in [place] 00 the Medical morning Branch and 1 tablet in the evening. traZODone 2022-0 Yes [id number] 50mg Take 1 U nivers 50 mg 3-09 tablet by ity of tablet 00:00: mouth at [place] 00 bedtime. Medical May cut Branch tablet in half. lithium 2022-0 Yes [id number] 900mg Take 2 Uni vers carbonate 3-09 tablets by ity of CR 450 mg 00:00: mouth at [facility] SR tablet 00 bedtime. Medica l Branch DULoxetine 2022-0 Yes [id number] 60mg Take 1 U nivers 60 mg 3-09 capsule by ity of capsule 00:00: mouth in [place] 00 the Medical morning Branch and 1 capsule in the evening. clonazePAM 3-0 Yes [id number] Take 1 U nivers 1 mg tablet 3-09 tablet by ity of 00:00: mouth [place] 00 twice Medical daily as Branch needed for anxiety. lamoTRIgine 2022-0 Yes [id number] 100mg Take 1 [facility] 100 mg 3-09 tablet by ity of tablet 00:00: mouth in [place] 00 the Medical morning Branch and 1 tablet in the evening. traZODone 2022-0 Yes [id number] 50mg Take 1 U nivers 50 mg 3-09 tablet by ity of tablet 00:00: mouth at [place] 00 bedtime. Medical May cut Branch tablet in half. lithium 2022-0 Yes [id number] 900mg Take 2 Uni vers carbonate 3-09 tablets by ity of CR 450 mg 00:00: mouth at [facility] s SR tablet 00 bedtime. Medica l Branch clonazePAM 2022-0 Yes [id number] Take 1 U nivers 1 mg tablet 3-09 tablet by ity of 00:00: mouth [place] 00 twice Medical daily as Branch needed for anxiety. lamoTRIgine 2022-0 Yes [id number] 100mg Take 1 Univers 100 mg 3-09 tablet by ity of tablet 00:00: mouth in [place] 00 the Medical morning Branch and 1 tablet in the evening. traZODone 2022-0 Yes [id number] 50mg Take 1 U nivers 50 mg 3-09 tablet by ity of tablet 00:00: mouth at [place] [address] bedtime. Medical May cut Branch tablet in half. clonazePAM 2022-0 Yes [id number] Take 1 U nivers 1 mg tablet 3-09 tablet by ity of 00:00: mouth [place] 00 twice Medical daily as Branch needed for anxiety. lamoTRIgine 2022-0 Yes [id number] 100mg Take 1 [facility] 100 mg 3-09 tablet by ity of tablet 00:00: mouth in [place] 00 the Medical morning Branch and 1 tablet in the evening. traZODone 3-0 Yes [id number] 50mg Take 1 U nivers 50 mg 3-09 tablet by ity of tablet 00:00: mouth at [place] [address] bedtime. Medical May cut Branch tablet in half. lamoTRIgine 2023-0 Yes [id number] 100mg Take 1 Univers 100 mg 3-09 tablet by ity of tablet 00:00: mouth in [place] 00 the Medical morning Branch and 1 tablet in the evening. traZODone 3-0 Yes [id number] 50mg Take 1 U nivers 50 mg 3-09 tablet by ity of tablet 00:00: mouth at [place] 00 bedtime. Medical May cut Branch tablet in half. traZODone 3-0 Yes [id number] 50mg Take 1 U nivers 50 mg 3-09 tablet by ity of tablet 00:00: mouth at [place] 00 bedtime. Medical May cut Branch tablet in half. traZODone 2022-0 Yes [id number] 50mg Take 1 U nivers 50 mg 3-09 tablet by ity of tablet 00:00: mouth at [place] 00 bedtime. Medical May cut Branch tablet in half. traZODone 2022-0 3- No [id number] 50mg Take 1 Univers 50 mg 3-10 18-14 tablet by ity of tablet 00:00: 00:00 mouth at [place] 00 :00 bedtime. Medical May cut Branch tablet in half. traZODone 2022-0 3- No [id number] 50mg Take 1 [facility] 50 mg 3-10 18-14 tablet by ity of tablet 00:00: 00:00 mouth at [place] 00 :00 bedtime. Medical May cut Branch tablet in half. traZODone 2022-0 3- No [id number] 50mg Take 1 [facility] 50 mg 3-10 18-14 tablet by ity of tablet 00:00: 00:00 mouth at [place] 00 :00 bedtime. Medical May cut Branch tablet in half. traZODone 2022-0 3- No [id number] 50mg Take 1 [facility] 50 mg 3-10 18-14 tablet by ity of tablet 00:00: 00:00 mouth at [place] 00 :00 bedtime. Medical May cut Branch tablet in half. lamoTRIgine 2022-0 3- No [id number] 100mg Take 1 [facility] 100 mg 3- 06-07 tablet by ity of tablet 00:00: 00:00 mouth in [place] 00 :00 the Medical morning Branch and 1 tablet in the evening. lamoTRIgine 3-0 2023- No [id number] 100mg Take 1 [facility] 100 mg 04-20 tablet by ity of tablet 00:00: 00:00 mouth in [place] 00 :00 the Medical morning Branch and 1 tablet in the evening. lamoTRIgine 2023-0 2022- No [id number] 100mg Take 1 [facility] 100 mg 04-20 tablet by ity of tablet 00:00: 00:00 mouth in [place] 00 :00 the Medical morning Branch and 1 tablet in the evening. lamoTRIgine 2023-0 2022- No [id number] 100mg Take 1 [facility] 100 mg 04-20 tablet by ity of tablet 00:00: 00:00 mouth in [place] 00 :00 the Medical morning Branch and 1 tablet in the evening. clonazePAM 2022-0 2022- No [id number] Take 1 [facility] 1 mg tablet 04-20 tablet by it y of 00:00: 00:00 mouth [place] 00 :00 twice Medical daily as Branch needed for anxiety. clonazePAM 2022-0 2022- No [id number] Take 1 Univers 1 mg tablet 04-20 tablet by it y of 00:00: 00:00 mouth [place] 00 :00 twice Medical daily as Branch needed for anxiety. clonazePAM 2022-0 2022- No [id number] Take 1 Univers 1 mg tablet 04-20 tablet by it y of 00:00: 00:00 mouth [place] 00 :00 twice Medical daily as Branch needed for anxiety. clonazePAM 2022-0 2022- No [id number] Take 1 [facility] 1 mg tablet 04-20 tablet by it y of 00:00: 00:00 mouth [place] 00 :00 twice Medical daily as Branch needed for anxiety. clonazePAM 2022-0 2022- No [id number] Take 1 [facility] 1 mg tablet 04-20 tablet by it y of 00:00: 00:00 mouth [place] 00 :00 twice Medical daily as Branch needed for anxiety. DULoxetine 3-0 2022- No [id number] 60mg Take 1 [facility] 60 mg 04-20 capsule by [facility] of capsule 00:00: 00:00 mouth in [place] 00 :00 the Medical morning Branch and 1 capsule in the evening. lithium 3-0 2022- No [id number] 900mg Take 2 Un cristhian carbonate 3-09 05-06 tablets by [facility] of CR 450 mg 00:00: 00:00 mouth [place] tablet 00 :00 bedtime. Medica l Branch DULoxetine 2023-0 3- No [id number] 60mg Take 1 [facility] 60 mg 04-20-06 capsule by [facility] of capsule 00:00: 00:00 mouth in [place] 00 :00 the Medical morning Branch and 1 capsule in the evening. lithium 2023-0 3- No [id number] 900mg Take 2 [facility] cristhian carbonate 04-20-06 tablets by [facility]y of CR 450 mg 00:00: 00:00 mouth [place] tablet 00 :00 bedtime. Medica l Branch DULoxetine 3-0 3- No [id number] 60mg Take 1 [facility] 60 mg 04-20- capsule by [facility] of capsule 00:00: 00:00 mouth in [place] 00 :00 the Medical morning Branch and 1 capsule in the evening. lithium 2023-0 3- No [id number] 900mg Take 2 [facility] cristhian carbonate 04-20- tablets by ity of CR 450 mg 00:00: 00:00 mouth [place] tablet 00 :00 bedtime. Medica l Branch lamoTRIgine 2023-0 Yes [id number] 100mg Take 1 [facility] 100 mg 1-26 tablet by [facility] of tablet 00:00: mouth in [place] 00 the Medical morning Branch and 1 tablet in the evening. lamoTRIgine 2023-0 Yes [id number] 100mg Take 1 [facility] 100 mg 1-26 tablet by [facility] of tablet 00:00: mouth in [place] 00 the Medical morning Branch and 1 tablet in the evening. lamoTRIgine 2023-0 Yes [id number] 100mg Take 1 [facility] 100 mg 1-26 tablet by [facility] of tablet 00:00: mouth in [place] 00 the Medical morning Branch and 1 tablet in the evening. lamoTRIgine 2023-0 Yes [id number] 100mg Take 1 [facility] 100 mg 1-26 tablet by [facility] of tablet 00:00: mouth in [place] 00 the Medical morning Branch and 1 tablet in the evening. lamoTRIgine 2023-0 2023- No [id number] 100mg Take 1 [facility] 100 mg 1-26 03-09 tablet by [facility] of tablet 00:00: 00:00 mouth in [place] 00 :00 the Medical morning Branch and 1 tablet in the evening. lamoTRIgine 2023-0 2023- No [id number] 100mg Take 1 [facility] 100 mg 1-26 03-09 tablet by [facility] of tablet 00:00: 00:00 mouth in [place] 00 :00 the Medical morning Branch and 1 tablet in the evening. DULoxetine 2023-0 Yes [id number] 60mg Take 1 [facility] 60 mg 1-04 capsule by [facility] of capsule 00:00: mouth in [place] 00 the Medical morning Branch and 1 capsule in the evening. lamoTRIgine 2023-0 Yes [id number] 100mg Take 1 [facility] 100 mg 1-04 tablet by [facility] of tablet 00:00: mouth in [place] 00 the Medical morning Branch and 1 tablet in the evening. traZODone 3-0 Yes [id number] 50mg Take 1 [facility] 50 mg 1-04 tablet by [facility] of tablet 00:00: mouth at [place] [address] bedtime. Medical May cut Branch tablet in half. clonazePAM 3-0 Yes [id number] Take 1 [facility] 1 mg tablet 1-04 tablet by [facility] of 00:00: mouth [place] 00 twice Medical daily as Branch needed for anxiety. lithium 600 3-0 Yes [id number] 600mg Take 1 [facility] mg capsule 1-04 capsule by [facility] of 00:00: mouth in [place] 00 the Medical morning Branch and 1 capsule in the evening. DULoxetine 3-0 Yes [id number] 60mg Take 1 [facility] 60 mg 1-04 capsule by [facility] of capsule 00:00: mouth in [place] 00 the Medical morning Branch and 1 capsule in the evening. lamoTRIgine 3-0 Yes [id number] 100mg Take 1 [facility] 100 mg 1-04 tablet by [facility] of tablet 00:00: mouth in [place] 00 the Medical morning Branch and 1 tablet in the evening. traZODone 3-0 Yes [id number] 50mg Take 1 [facility] 50 mg 1-04 tablet by [facility] of tablet 00:00: mouth at [place] [address] bedtime. Medical May cut Branch tablet in half. clonazePAM 3-0 Yes [id number] Take 1 [facility] 1 mg tablet 1-04 tablet by [facility] of 00:00: mouth [place] 00 twice Medical daily as Branch needed for anxiety. lithium 2023-0 Yes [id number] 900mg Take 2 [facility] vers carbonate 1-04 tablets by [facility] CR 450 mg 00:00: [place] tablet 00 bedtime. Medica l Branch DULoxetine 3-0 Yes [id number] 60mg Take 1 [facility] 60 mg 1-04 capsule by [facility] of capsule 00:00: mouth in [place] 00 the Medical morning Branch and 1 capsule in the evening. lamoTRIgine 3-0 Yes [id number] 100mg Take 1 [facility] 100 mg 1-04 tablet by [facility] of tablet 00:00: mouth in [place] 00 the Medical morning Branch and 1 tablet in the evening. traZODone 3-0 Yes [id number] 50mg Take 1 [facility] 50 mg 1-04 tablet by [facility] of tablet 00:00: mouth at [place] 00 bedtime. Medical May cut Branch tablet in half. clonazePAM 2022-0 Yes [id number] Take 1 [facility] 1 mg tablet 1-04 tablet by [facility] of 00:00: mouth [place] 00 twice Medical daily as Branch needed for anxiety. lithium 2022-0 Yes [id number] 900mg Take 2 [facility] vers carbonate 1-04 tablets by [facility] CR 450 mg 00:00: [place] tablet 00 bedtime. Medica l Branch DULoxetine 2022-0 Yes [id number] 60mg Take 1 [facility] 60 mg 1-04 capsule by [facility] of capsule 00:00: mouth in [place] 00 the Medical morning Branch and 1 capsule in the evening. lamoTRIgine 2022-0 Yes [id number] 100mg Take 1 [facility] 100 mg 1-04 tablet by [facility] of tablet 00:00: mouth in [place] 00 the Medical morning Branch and 1 tablet in the evening. traZODone 3-0 Yes [id number] 50mg Take 1 [facility] 50 mg 1-04 tablet by [facility] of tablet 00:00: mouth at [place] 00 bedtime. Medical May cut Branch tablet in half. clonazePAM 3-0 Yes [id number] Take 1 [facility] 1 mg tablet 1-04 tablet by it[facility] of 00:00: mouth [place] 00 twice Medical daily as Branch needed for anxiety. lithium 3-0 Yes [id number] 900mg Take 2 [facility] vers carbonate 1-04 tablets by [facility] CR 450 mg 00:00: [place] tablet 00 bedtime. Medica l Branch DULoxetine 3-0 Yes [id number] 60mg Take 1 [facility] 60 mg 1-04 capsule by [facility] of capsule 00:00: mouth in [place] 00 the Medical morning Branch and 1 capsule in the evening. lamoTRIgine 2023-0 Yes [id number] 100mg Take 1 [facility] 100 mg 1-04 tablet by [facility] of tablet 00:00: mouth in [place] 00 the Medical morning Branch and 1 tablet in the evening. traZODone 2023-0 Yes [id number] 50mg Take 1 [facility] 50 mg 1-04 tablet by [facility] of tablet 00:00: mouth at [place] 00 bedtime. Medical May cut Branch tablet in half. clonazePAM 2023-0 Yes [id number] Take 1 [facility] 1 mg tablet 1-04 tablet by [facility] of 00:00: mouth [place] 00 twice Medical daily as Branch needed for anxiety. lithium 3-0 Yes [id number] 900mg Take 2 [facility] vers carbonate 1-04 tablets by [facility] CR 450 mg 00:00: [place] tablet 00 bedtime. Medica l Branch DULoxetine 3-0 Yes [id number] 60mg Take 1 [facility] 60 mg 1-04 capsule by [facility] of capsule 00:00: mouth in [place] 00 the Medical morning Branch and 1 capsule in the evening. lamoTRIgine 3-0 Yes [id number] 100mg Take 1 [facility] 100 mg 1-04 tablet by [facility] of tablet 00:00: mouth in [place] 00 the Medical morning Branch and 1 tablet in the evening. traZODone 3-0 Yes [id number] 50mg Take 1 [facility] 50 mg 1-04 tablet by [facility] of tablet 00:00: mouth at [place] 00 bedtime. Medical May cut Branch tablet in half. clonazePAM 2023-0 Yes [id number] Take 1 [facility] 1 mg tablet 1-04 tablet by [facility] of 00:00: mouth [place] 00 twice Medical daily as Branch needed for anxiety. lithium 2023-0 Yes [id number] 900mg Take 2 [facility] vers carbonate 1-04 tablets by [facility] CR 450 mg 00:00: [place] tablet 00 bedtime. Medica l Branch DULoxetine 3-0 Yes [id number] 60mg Take 1 [facility] 60 mg 1-04 capsule by [facility] of capsule 00:00: mouth in [place] 00 the Medical morning Branch and 1 capsule in the evening. traZODone 2022-0 Yes [id number] 50mg Take 1 [facility] 50 mg 1-04 tablet by [facility] of tablet 00:00: mouth at [place] 00 bedtime. Medical May cut Branch tablet in half. clonazePAM 2022-0 Yes [id number] Take 1 [facility] 1 mg tablet 1-04 tablet by [facility] of 00:00: mouth [place] 00 twice Medical daily as Branch needed for anxiety. lithium 2022-0 Yes [id number] 900mg Take 2 [facility] vers carbonate 1-04 tablets by [facility] CR 450 mg 00:00: [place] SR tablet 00 bedtime. Medica l Branch DULoxetine 2022-0 Yes [id number] 60mg Take 1 [facility] 60 mg 1-04 capsule by [facility] of capsule 00:00: mouth in [place] 00 the Medical morning Branch and 1 capsule in the evening. traZODone 2022-0 Yes [id number] 50mg Take 1 [facility] 50 mg 1-04 tablet by [facility] of tablet 00:00: mouth at [place] 00 bedtime. Medical May cut Branch tablet in half. clonazePAM 2022-0 Yes [id number] Take 1 [facility] 1 mg tablet 1-04 tablet by [facility] of 00:00: mouth [place] 00 twice Medical daily as Branch needed for anxiety. lithium 2022-0 Yes [id number] 900mg Take 2 [facility] vers carbonate 1-04 tablets by [facility] CR 450 mg 00:00: [place] SR tablet 00 bedtime. Medica l Branch DULoxetine 2022-0 Yes [id number] 60mg Take 1 [facility] 60 mg 1-04 capsule by [facility] of capsule 00:00: mouth in [place] 00 the Medical morning Branch and 1 capsule in the evening. traZODone 2022-0 Yes [id number] 50mg Take 1 [facility] 50 mg 1-04 tablet by [facility] of tablet 00:00: mouth at [place] 00 bedtime. Medical May cut Branch tablet in half. clonazePAM 2022-0 Yes [id number] Take 1 [facility] 1 mg tablet 1-04 tablet by [facility] of 00:00: mouth [place] 00 twice Medical daily as Branch needed for anxiety. lithium 2022-0 Yes [id number] 900mg Take 2 [facility] vers carbonate 1-04 tablets by [facility] CR 450 mg 00:00: [place] SR tablet 00 bedtime. Medica l Branch DULoxetine 2022-0 Yes [id number] 60mg Take 1 [facility] 60 mg 1-04 capsule by [facility] of capsule 00:00: mouth in [place] 00 the Medical morning Branch and 1 capsule in the evening. traZODone 2022-0 Yes [id number] 50mg Take 1 [facility] 50 mg 1-04 tablet by [facility] of tablet 00:00: mouth at [place] 00 bedtime. Medical May cut Branch tablet in half. clonazePAM 2022-0 Yes [id number] Take 1 [facility] 1 mg tablet 1-04 tablet by ity of 00:00: mouth [place] 00 twice Medical daily as Branch needed for anxiety. lithium 0 Yes [id number] 900mg Take 2 [facility] vers carbonate 1-04 tablets by [facility] CR 450 mg 00:00: [place] SR tablet 00 bedtime. Medica l Branch traZODone 0 2022- No [id number] 50mg Take 1 [facility] 50 mg 02-15-09 tablet by [facility] of tablet 00:00: 00:00 mouth at [place] 00 :00 bedtime. Medical May cut Branch tablet in half. lithium 2022-0 2022- No [id number] 900mg Take 2 [facility] cristhian carbonate -05 15-09 tablets by [facility] of CR 450 mg 00:00: 00:00 mouth [place] tablet 00 :00 bedtime. Medica l Branch traZODone 2022-0 2022- No [id number] 50mg Take 1 [facility] 50 mg 02-15-09 tablet by [facility] of tablet 00:00: 00:00 mouth at [place] 00 :00 bedtime. Medical May cut Branch tablet in half. lithium 0 2022- No [id number] 900mg Take 2 [facility] cristhian carbonate -05 15-09 tablets by [facility] of CR 450 mg 00:00: 00:00 mouth at [place] tablet 00 :00 bedtime. Medica l Branch DULoxetine 2022-0 2022- No [id number] 60mg Take 1 [facility] 60 mg 02-15-08 capsule by [facility] of capsule 00:00: 00:00 mouth in [place] 00 :00 the Medical morning Branch and 1 capsule in the evening. clonazePAM 2022-0 2022- No [id number] Take 1 [facility] 1 mg tablet 02-15 tablet by it y of 00:00: 00:00 mouth [place] 00 :00 twice Medical daily as Branch needed for anxiety. DULoxetine 2023-0 3- No [id number] 60mg Take 1 [facility] 60 mg 02-15 capsule by [facility] of capsule 00:00: 00:00 mouth in [place] 00 :00 the Medical morning Branch and 1 capsule in the evening. clonazePAM 3-0 3- No [id number] Take 1 [facility] 1 mg tablet 02-15 tablet by it y of 00:00: 00:00 mouth [place] 00 :00 twice Medical daily as Branch needed for anxiety. lamoTRIgine 3-0 3- No [id number] 100mg Take 1 [facility] 100 mg 02-15 tablet by [facility] of tablet 00:00: 00:00 mouth in [place] 00 :00 the Medical morning Branch and 1 tablet in the evening. lamoTRIgine 3-0 3- No [id number] 100mg Take 1 [facility] 100 mg 02-15 tablet by [facility] of tablet 00:00: 00:00 mouth in [place] 00 :00 the Medical morning Branch and 1 tablet in the evening. lamoTRIgine 3-0 3- No [id number] 100mg Take 1 [facility] 100 mg 02-15 tablet by [facility] of tablet 00:00: 00:00 mouth in [place] 00 :00 the Medical morning Branch and 1 tablet in the evening. lamoTRIgine 3-0 3- No [id number] 100mg Take 1 [facility] 100 mg 02-15 tablet by [facility] of tablet 00:00: 00:00 mouth in [place] 00 :00 the Medical morning Branch and 1 tablet in the evening. lithium 600 3-0 3- No [id number] 600mg Take 1 [facility] mg capsule 02-15 capsule by it y of 00:00: 00:00 mouth in [place] 00 :00 the Medical morning Branch and 1 capsule in the evening. lithium 600 2023-0 3- No [id number] 600mg Take 1 [facility] mg capsule 02-15 capsule by it y of 00:00: 00:00 mouth in [place] 00 :00 the Medical morning Branch and 1 capsule in the evening. lithium 600 2023-0 3- No [id number] 600mg Take 1 [facility] mg capsule 02-15 capsule by it y of 00:00: 00:00 mouth in [place] 00 :00 the Medical morning Branch and 1 capsule in the evening. lithium 600 2022-0 3- No [id number] 600mg Take 1 [facility] mg capsule 02-15 capsule by it y of 00:00: 00:00 mouth in [place] 00 :00 the Medical morning Branch and 1 capsule in the evening. lithium 600 2022-0 3- No [id number] 600mg Take 1 [facility] mg capsule 02-15 capsule by it y of 00:00: 00:00 mouth in [place] 00 :00 the Medical morning Branch and 1 capsule in the evening. lithium 600 2022-0 2022- No [id number] 600mg Take 1 [facility] mg capsule 02-15 capsule by it y of 00:00: 00:00 mouth in [place] 00 :00 the Medical morning Branch and 1 capsule in the evening. lithium 600 2022-0 2022- No [id number] 600mg Take 1 [facility] mg capsule 02-15 capsule by it y of 00:00: 00:00 mouth in [place] 00 :00 the Medical morning Branch and 1 capsule in the evening. lithium 600 2022-0 2022- No [id number] 600mg Take 1 [facility] mg capsule 02-15 capsule by it y of 00:00: 00:00 mouth in [place] 00 :00 the Medical morning Branch and 1 capsule in the evening. DULoxetine 2021-02 Yes [id number] 60mg Take 1 [facility] 60 mg 2-28 capsule by [facility] of capsule 00:00: mouth in [place] 00 the Medical morning Branch and 1 capsule in the evening. DULoxetine 2021-02- No [id number] 60mg Take 1 [facility] 60 mg 2-28 -04 capsule by [facility] of capsule 00:00: 00:00 mouth in [place] 00 :00 the Medical morning Branch and 1 capsule in the evening. DULoxetine 2021-023- No [id number] 60mg Take 1 [facility] 60 mg 2-28 -04 capsule by [facility] of capsule 00:00: 00:00 mouth in [place] 00 :00 the Medical morning Branch and 1 capsule in the evening. DULoxetine 2021-023- No [id number] 60mg Take 1 [facility] 60 mg 2-28 -04 capsule by [facility] of capsule 00:00: 00:00 mouth in [place] 00 :00 the Medical morning Branch and 1 capsule in the evening. DULoxetine 2021-02- No [id number] 60mg Take 1 [facility] 60 mg 2-28 -04 capsule by [facility] of capsule 00:00: 00:00 mouth in [place] 00 :00 the Medical morning Branch and 1 capsule in the evening. DULoxetine 2021-02- No [id number] 60mg Take 1 [facility] 60 mg 2-28 -04 capsule by [facility] of capsule 00:00: 00:00 mouth in [place] 00 :00 the Medical morning Branch and 1 capsule in the evening. DULoxetine 2021-02- No [id number] 60mg Take 1 [facility] 60 mg 2-28 -04 capsule by [facility] of capsule 00:00: 00:00 mouth in [place] 00 :00 the Medical morning Branch and 1 capsule in the evening. DULoxetine 2021-02- No [id number] 60mg Take 1 [facility] 60 mg 2-28 -04 capsule by [facility] of capsule 00:00: 00:00 mouth in [place] 00 :00 the Medical morning Branch and 1 capsule in the evening. DULoxetine 2021-02- No [id number] 60mg Take 1 [facility] 60 mg 2-28 -04 capsule by [facility] of capsule 00:00: 00:00 mouth in [place] 00 :00 the Medical morning Branch and 1 capsule in the evening. lamoTRIgine 2021-02 Yes [id number] 100mg Take 1 [facility] 100 mg 2-22 tablet by [facility] of tablet 00:00: mouth in [place] 00 the Medical morning Branch and 1 tablet in the evening. lamoTRIgine 2021-02 Yes [id number] 100mg Take 1 [facility] 100 mg 2-22 tablet by [facility] of tablet 00:00: mouth in [place] 00 the Medical morning Branch and 1 tablet in the evening. lamoTRIgine 2021-02- No [id number] 100mg Take 1 [facility] 100 mg 2-22 01-04 tablet by [facility] of tablet 00:00: 00:00 mouth in [place] 00 :00 the Medical morning Branch and 1 tablet in the evening. lamoTRIgine 2021-02- No [id number] 100mg Take 1 [facility] 100 mg 2-22 01-04 tablet by [facility] of tablet 00:00: 00:00 mouth in [place] 00 :00 the Medical morning Branch and 1 tablet in the evening. lamoTRIgine 2021-023- No [id number] 100mg Take 1 [facility] 100 mg 2- tablet by [facility] of tablet 00:00: 00:00 mouth in [place] 00 :00 the Medical morning Branch and 1 tablet in the evening. lamoTRIgine 2021-023- No [id number] 100mg Take 1 [facility] 100 mg 2- tablet by [facility] of tablet 00:00: 00:00 mouth in [place] 00 :00 the Medical morning Branch and 1 tablet in the evening. lamoTRIgine 2021-023- No [id number] 100mg Take 1 [facility] 100 mg 2- tablet by [facility] of tablet 00:00: 00:00 mouth in [place] 00 :00 the Medical morning Branch and 1 tablet in the evening. lamoTRIgine 2021-02- No [id number] 100mg Take 1 [facility] 100 mg 2- tablet by [facility] of tablet 00:00: 00:00 mouth in [place] 00 :00 the [facility] morning Branch and 1 tablet in the evening. lamoTRIgine 2021-023- No [id number] 100mg Take 1 [facility] 100 mg 04-05 tablet by it[facility] of tablet 00:00: 00:00 mouth in [place] 00 :00 the [facility] morning Branch and 1 tablet in the evening. lamoTRIgine 2021-023- No [id number] 100mg Take 1 [facility] 100 mg 04-05- tablet by [facility] of tablet 00:00: 00:00 mouth in [place] 00 :00 the [facility] morning Branch and 1 tablet in the evening. traZODone 2021- Yes [id number] 50mg Take 1 [facility] 50 mg 1-30 tablet by [facility] of tablet 00:00: mouth at [place] [address] bedtime. Medical May cut Branch tablet in half. lamoTRIgine 2021-02 Yes [id number] 100mg Take 1 [facility] 100 mg 1-30 tablet by [facility] of tablet 00:00: mouth in [place] 00 the Medical morning Branch and 1 tablet in the evening. traZODone 2021- Yes [id number] 50mg Take 1 [facility] 50 mg 1-30 tablet by [facility] of tablet 00:00: mouth at [place] 00 bedtime. Medical May cut Branch tablet in half. lamoTRIgine 2021-02 Yes [id number] 100mg Take 1 [facility] 100 mg 1-30 tablet by [facility] of tablet 00:00: mouth in [place] 00 the Medical morning Branch and 1 tablet in the evening. traZODone 2021-02 Yes [id number] 50mg Take 1 [facility] 50 mg 1-30 tablet by [facility] of tablet 00:00: mouth at [place] 00 bedtime. Medical May cut Branch tablet in half. lamoTRIgine 2021-02 Yes [id number] 100mg Take 1 [facility] 100 mg 1-30 tablet by [facility] of tablet 00:00: mouth in [place] 00 the Medical morning Branch and 1 tablet in the evening. traZODone 2021-02 Yes [id number] 50mg Take 1 [facility] 50 mg 1-30 tablet by [facility] of tablet 00:00: mouth at [place] 00 bedtime. Medical May cut Branch tablet in half. traZODone 2021-02 Yes [id number] 50mg Take 1 [facility] 50 mg 1-30 tablet by [facility] of tablet 00:00: mouth at [place] 00 bedtime. Medical May cut Branch tablet in half. traZODone 2021-02- No [id number] 50mg Take 1 [facility] 50 mg 1-30 01-04 tablet by [facility] of tablet 00:00: 00:00 mouth at [place] 00 :00 bedtime. Medical May cut Branch tablet in half. traZODone 2021-02- No [id number] 50mg Take 1 [facility] 50 mg 1-30 01-04 tablet by [facility] of tablet 00:00: 00:00 mouth at [place] 00 :00 bedtime. Medical May cut Branch tablet in half. traZODone 2021-02- No [id number] 50mg Take 1 [facility] 50 mg 1-30 01-04 tablet by [facility] of tablet 00:00: 00:00 mouth at [place] 00 :00 bedtime. Medical May cut Branch tablet in half. traZODone 2021-02- No [id number] 50mg Take 1 [facility] 50 mg 1-30 01-04 tablet by [facility] of tablet 00:00: 00:00 mouth at [place] 00 :00 bedtime. Medical May cut Branch tablet in half. traZODone 2021-02- No [id number] 50mg Take 1 [facility] 50 mg 1-30 -04 tablet by [facility] of tablet 00:00: 00:00 mouth at [place] 00 :00 bedtime. Medical May cut Branch tablet in half. traZODone 2021-02- No [id number] 50mg Take 1 [facility] 50 mg 1-30 -04 tablet by [facility] of tablet 00:00: 00:00 mouth at [place] 00 :00 bedtime. Medical May cut Branch tablet in half. traZODone 2021-02- No [id number] 50mg Take 1 [facility] 50 mg 1-30 -04 tablet by [facility] of tablet 00:00: 00:00 mouth at [place] 00 :00 bedtime. Medical May cut Branch tablet in half. traZODone 2021-02- No [id number] 50mg Take 1 [facility] 50 mg 1-30 -04 tablet by [facility] of tablet 00:00: 00:00 mouth at [place] 00 :00 bedtime. Medical May cut Branch tablet in half. lamoTRIgine 2021-02- No [id number] 100mg Take 1 [facility] 100 mg 1-30 12-22 tablet by [facility] of tablet 00:00: 00:00 mouth in [place] 00 :00 the Medical morning Branch and 1 tablet in the evening. lamoTRIgine 2021-02- No [id number] 100mg Take 1 [facility] 100 mg 1-30 12-22 tablet by [facility] of tablet 00:00: 00:00 mouth in [place] 00 :00 the Medical morning Branch and 1 tablet in the evening. lamoTRIgine 2021-02- No [id number] 100mg Take 1 [facility] 100 mg 1-30 12-22 tablet by [facility] of tablet 00:00: 00:00 mouth in [place] 00 :00 the Medical morning Branch and 1 tablet in the evening. lamoTRIgine 2021-02- No [id number] 100mg Take 1 [facility] 100 mg 1-30 12-22 tablet by [facility] of tablet 00:00: 00:00 mouth in [place] 00 :00 the Medical morning Branch and 1 tablet in the evening. lamoTRIgine 2021-02- No [id number] 100mg Take 1 [facility] 100 mg 1-30 12-22 tablet by [facility]y of tablet 00:00: 00:00 mouth in [place] 00 :00 the Medical morning Branch and 1 tablet in the evening. DULoxetine 2021-02 Yes [id number] 60mg Take 1 [facility] n[facility] 60 mg 1-28 capsule by [facility] of capsule 00:00: mouth in [place] 00 the Medical morning Branch and 1 capsule in the evening. clonazePAM 2021-02 Yes [id number] Take 1 [facility] n[facility] 1 mg tablet 1-28 tablet by ity of 00:00: mouth [place] 00 twice Medical daily as Branch needed for anxiety. DULoxetine 2021-02 Yes [id number] 60mg Take 1 [facility] n[facility] 60 mg 1-28 capsule by [facility] of capsule 00:00: mouth in [place] 00 the Medical morning Branch and 1 capsule in the evening. clonazePAM 2021-02 Yes [id number] Take 1 [facility] n[facility] 1 mg tablet 1-28 tablet by ity of 00:00: mouth [place] 00 twice Medical daily as Branch needed for anxiety. DULoxetine 2021-02 Yes [id number] 60mg Take 1 [facility] 60 mg 1-28 capsule by [facility] of capsule 00:00: mouth in [place] 00 the Medical morning Branch and 1 capsule in the evening. clonazePAM 2021-02 Yes [id number] Take 1 [facility] 1 mg tablet 1-28 tablet by ity of 00:00: mouth [place] 00 twice Medical daily as Branch needed for anxiety. DULoxetine 2021-02 Yes [id number] 60mg Take 1 [facility] 60 mg 1-28 capsule by [facility] of capsule 00:00: mouth in [place] 00 the Medical morning Branch and 1 capsule in the evening. clonazePAM 2021-02 Yes [id number] Take 1 [facility] 1 mg tablet 1-28 tablet by ity of 00:00: mouth [place] 00 twice Medical daily as Branch needed for anxiety. DULoxetine 2021-02 Yes [id number] 60mg Take 1 [facility] 60 mg 1-28 capsule by [facility] of capsule 00:00: mouth in [place] 00 the Medical morning Branch and 1 capsule in the evening. clonazePAM 2021-02 Yes [id number] Take 1 [facility] 1 mg tablet 1-28 tablet by [facility]y of 00:00: mouth [place] 00 twice Medical daily as Branch needed for anxiety. DULoxetine 2021-02 Yes [id number] 60mg Take 1 [facility] 60 mg 1-28 capsule by [facility] of capsule 00:00: mouth in [place] 00 the Medical morning Branch and 1 capsule in the evening. clonazePAM 2021-02 Yes [id number] Take 1 [facility] 1 mg tablet -28 tablet by [facility]y of 00:00: mouth [place] 00 twice Medical daily as Branch needed for anxiety. clonazePAM 2021-02 Yes [id number] Take 1 [facility] 1 mg tablet -28 tablet by [facility]y of 00:00: mouth [place] 00 twice Medical daily as Branch needed for anxiety. clonazePAM 2021-02- No [id number] Take 1 [facility] 1 mg tablet 03-11 tablet by it y of 00:00: 00:00 mouth [place] 00 :00 twice Medical daily as Branch needed for anxiety. clonazePAM 2021-02- No [id number] Take 1 [facility] 1 mg tablet 03-11 tablet by it y of 00:00: 00:00 mouth [place] 00 :00 twice Medical daily as Branch needed for anxiety. clonazePAM 2021-02- No [id number] Take 1 [facility] 1 mg tablet 03-11 tablet by it y of 00:00: 00:00 mouth [place] 00 :00 twice Medical daily as Branch needed for anxiety. clonazePAM 2021-02- No [id number] Take 1 [facility] 1 mg tablet 03-11 tablet by it y of 00:00: 00:00 mouth [place] 00 :00 twice Medical daily as Branch needed for anxiety. clonazePAM 2021-02- No [id number] Take 1 [facility] 1 mg tablet 03-11 tablet by it y of 00:00: 00:00 mouth [place] 00 :00 twice Medical daily as Branch needed for anxiety. clonazePAM 2021-02- No [id number] Take 1 [facility] 1 mg tablet 03-11 tablet by it y of 00:00: 00:00 mouth [place] 00 :00 twice Medical daily as Branch needed for anxiety. clonazePAM 2021-02- No [id number] Take 1 [facility] 1 mg tablet 03-11 tablet by it y of 00:00: 00:00 mouth [place] 00 :00 twice Medical daily as Branch needed for anxiety. clonazePAM 2021-02- No [id number] Take 1 [facility] 1 mg tablet 03-11 tablet by it y of 00:00: 00:00 mouth [place] 00 :00 twice Medical daily as Branch needed for anxiety. DULoxetine 2021-02- No [id number] 60mg Take 1 [facility] 60 mg 1-28 12-27 capsule by ity of capsule 00:00: 00:00 mouth in [place] 00 :00 the Medical morning Branch and 1 capsule in the evening. DULoxetine 2021-02- No [id number] 60mg Take 1 [facility] 60 mg 1-28 12-27 capsule by ity of capsule 00:00: 00:00 mouth in [place] 00 :00 the Medical morning Branch and 1 capsule in the evening. DULoxetine 2021-02- No [id number] 60mg Take 1 [facility] 60 mg 1-28 12-27 capsule by ity of capsule 00:00: 00:00 mouth in [place] 00 :00 the Medical morning Branch and 1 capsule in the evening. DULoxetine 2021-02- No [id number] 60mg Take 1 [facility] 60 mg 1-28 12-27 capsule by ity of capsule 00:00: 00:00 mouth in [place] 00 :00 the Medical morning Branch and 1 capsule in the evening. DULoxetine 2021-02- No [id number] 60mg Take 1 [facility] 60 mg 1-28 12-27 capsule by ity of capsule 00:00: 00:00 mouth in [place] 00 :00 the Medical morning Branch and 1 capsule in the evening. traZODone 2021-02 Yes [id number] 50mg Take 1 [facility] 50 mg 1-22 tablet by ity of tablet 00:00: mouth at [place] [address] bedtime. Medical May cut Branch tablet in half. traZODone 2021-02 Yes [id number] 50mg Take 1 [facility] 50 mg 1-22 tablet by ity of tablet 00:00: mouth at [place] [address] bedtime. Medical May cut Branch tablet in half. traZODone 2021-02 Yes [id number] 50mg Take 1 [facility] 50 mg 1-22 tablet by ity of tablet 00:00: mouth at [place] 00 bedtime. Medical May cut Branch tablet in half. traZODone 2021-02- No [id number] 50mg Take 1 [facility] 50 mg 1-22 11-30 tablet by ity of tablet 00:00: 00:00 mouth at [place] 00 :00 bedtime. Medical May cut Branch tablet in half. traZODone 2021-02- No [id number] 50mg Take 1 [facility] 50 mg 1-22 11-30 tablet by ity of tablet 00:00: 00:00 mouth at [place] 00 :00 bedtime. Medical May cut Branch tablet in half. traZODone 2021-02- No [id number] 50mg Take 1 [facility] 50 mg 1-22 11-30 tablet by ity of tablet 00:00: 00:00 mouth at [place] 00 :00 bedtime. Medical May cut Branch tablet in half. traZODone 2021-02- No [id number] 50mg Take 1 [facility] 50 mg 1-22 11-30 tablet by ity of tablet 00:00: 00:00 mouth at [place] 00 :00 bedtime. Medical May cut Branch tablet in half. traZODone 2021-02- No [id number] 50mg Take 1 [facility] 50 mg 1-22 11-30 tablet by ity of tablet 00:00: 00:00 mouth at [place] 00 :00 bedtime. Medical May cut Branch tablet in half. DULoxetine 2021-02 Yes [id number] 60mg Take 1 [facility] 60 mg 0-25 capsule by it[facility] of capsule 00:00: mouth in [place] 00 the Medical morning Branch and 1 capsule in the evening. DULoxetine 2021-02 Yes [id number] 60mg Take 1 [facility] 60 mg 0-25 capsule by ity of capsule 00:00: mouth in [place] 00 the Medical morning Branch and 1 capsule in the evening. DULoxetine 2021-02 Yes [id number] 60mg Take 1 [facility] 60 mg 0-25 capsule by ity of capsule 00:00: mouth in [place] 00 the Medical morning Branch and 1 capsule in the evening. DULoxetine 2021-02- No [id number] 60mg Take 1 [facility] 60 mg 0-25 11-28 capsule by ity of capsule 00:00: 00:00 mouth in [place] 00 :00 the Medical morning Branch and 1 capsule in the evening. DULoxetine 2021-02- No [id number] 60mg Take 1 [facility] 60 mg 0-25 11-28 capsule by ity of capsule 00:00: 00:00 mouth in [place] 00 :00 the Medical morning Branch and 1 capsule in the evening. DULoxetine 2021-02- No [id number] 60mg Take 1 [facility] 60 mg 0-25 11-28 capsule by ity of capsule 00:00: 00:00 mouth in [place] 00 :00 the Medical morning Branch and 1 capsule in the evening. DULoxetine 2021-02- No [id number] 60mg Take 1 [facility] 60 mg 0-25 11-28 capsule by ity of capsule 00:00: 00:00 mouth in [place] 00 :00 the Medical morning Branch and 1 capsule in the evening. DULoxetine 2021-02- No [id number] 60mg Take 1 [facility] 60 mg 0-25 11-28 capsule by ity of capsule 00:00: 00:00 mouth in [place] 00 :00 the Medical morning Branch and 1 capsule in the evening. clonazePAM 2021-02 Yes [id number] Take 1 [facility] 1 mg tablet 0-20 tablet by ity of 00:00: mouth [place] 00 twice Medical daily as Branch needed for anxiety. lithium 600 2021-02 Yes [id number] 600mg Take 1 [facility] mg capsule 0-20 capsule by ity of 00:00: mouth in [place] 00 the Medical morning Branch and 1 capsule in the evening. lamoTRIgine 2021-02 Yes [id number] 50mg Take 2 [facility] 25 mg 0-20 tablets by ity of tablet 00:00: mouth in [place] 00 the Medical morning Branch and 2 tablets in the evening. clonazePAM 2021-02 Yes [id number] Take 1 [facility] 1 mg tablet 0-20 tablet by ity of 00:00: mouth [place] [address] twice Medical daily as Branch needed for anxiety. lithium 600 2021-02 Yes [id number] 600mg Take 1 [facility] mg capsule 0-20 capsule by ity of 00:00: mouth in [place] 00 the Medical morning Branch and 1 capsule in the evening. lamoTRIgine 2021-02 Yes [id number] 50mg Take 2 [facility] 25 mg 0-20 tablets by ity of tablet 00:00: mouth in [place] 00 the Medical morning Branch and 2 tablets in the evening. clonazePAM 2021-02 Yes [id number] Take 1 [facility] 1 mg tablet 0-20 tablet by ity of 00:00: mouth [place] [address] twice Medical daily as Branch needed for anxiety. lithium 600 2021-02 Yes [id number] 600mg Take 1 [facility] mg capsule 0-20 capsule by ity of 00:00: mouth in [place] 00 the Medical morning Branch and 1 capsule in the evening. lamoTRIgine 2022-1 Yes [id number] 50mg Take 2 [facility] 25 mg 0-20 tablets by ity of tablet 00:00: mouth in [place] [address] the Medical morning Branch and 2 tablets in the evening. lithium 600 2021-1 Yes [id number] 600mg Take 1 [facility] mg capsule 0-20 capsule by ity of 00:00: mouth in [place] [address] the Medical morning Branch and 1 capsule in the evening. lamoTRIgine 2021-1 Yes [id number] 50mg Take 2 [facility] 25 mg 0-20 tablets by ity of tablet 00:00: mouth in [place] [address] the Medical morning Branch and 2 tablets in the evening. lithium 600 2021-1 Yes [id number] 600mg Take 1 [facility] mg capsule 0-20 capsule by ity of 00:00: mouth in [place] [address] the [facility] morning [place] and 1 capsule in the evening. lamoTRIgine 2021-1 Yes [id number] 50mg Take 2 [facility] 25 mg 0-20 tablets by ity of tablet 00:00: mouth in [place] [address] the [facility] morning [place] and 2 tablets in the evening. lithium 600 2021-1 Yes [id number] 600mg Take 1 [facility] mg capsule 0-20 capsule by ity of 00:00: mouth in [place] [address] the [facility] morning [place] and 1 capsule in the evening. lithium 600 2021-1 Yes [id number] 600mg Take 1 [facility] mg capsule 0-20 capsule by ity of 00:00: mouth in [place] [address] the [facility] morning [place] and 1 capsule in the evening. lithium 600 2021-1 Yes [id number] 600mg Take 1 [facility] mg capsule 0-20 capsule by ity of 00:00: mouth in [place] [address] the [facility] morning [place] and 1 capsule in the evening. lithium 600 2021-1 Yes [id number] 600mg Take 1 [facility] mg capsule 0-20 capsule by ity of 00:00: mouth in [address] morning [place] and 1 capsule in the evening. lithium 600 2021-1 Yes [id number] 600mg Take 1 [facility] mg capsule 0-20 capsule by ity of 00:00: mouth in [place] [address] the [facility] morning [place] and 1 capsule in the evening. lithium 600 2-1 2023- No [id number] 600mg Take 1 [facility] mg capsule 0-20 01-04 capsule by it y of 00:00: 00:00 mouth in [place] 00 :00 the [facility] morning [place] and 1 capsule in the evening. lithium 600 2021-3- No [id number] 600mg Take 1 [facility] mg capsule 0-20 01-04 capsule by it y of 00:00: 00:00 mouth in [place] 00 :00 the Medical morning Branch and 1 capsule in the evening. lithium 600 2021-3- No [id number] 600mg Take 1 [facility] mg capsule 0-20 01-04 capsule by it y of 00:00: 00:00 mouth in [place] 00 :00 the Medical morning Branch and 1 capsule in the evening. lithium 600 2021-3- No [id number] 600mg Take 1 [facility] mg capsule 0-20 01-04 capsule by it y of 00:00: 00:00 mouth in [place] 00 :00 the Medical morning Branch and 1 capsule in the evening. lithium 600 2021-3- No [id number] 600mg Take 1 [facility] mg capsule 0-20 01-04 capsule by it y of 00:00: 00:00 mouth in [place] 00 :00 the Medical morning Branch and 1 capsule in the evening. lithium 600 2021-2022- No [id number] 600mg Take 1 [facility] mg capsule 0-20 01-04 capsule by it y of 00:00: 00:00 mouth in [place] 00 :00 the Medical morning Branch and 1 capsule in the evening. lithium 600 2021-3- No [id number] 600mg Take 1 [facility] mg capsule 0-20 01-04 capsule by it y of 00:00: 00:00 mouth in [place] 00 :00 the Medical morning Branch and 1 capsule in the evening. lithium 600 2021-3- No [id number] 600mg Take 1 [facility] mg capsule 0-20 01-04 capsule by it y of 00:00: 00:00 mouth in [place] 00 :00 the Medical morning Branch and 1 capsule in the evening. lamoTRIgine 2021-2- No [id number] 50mg Take 2 [facility] 25 mg 0-20 11-30 tablets by ity of tablet 00:00: 00:00 mouth in [place] 00 :00 the Medical morning Branch and 2 tablets in the evening. lamoTRIgine 2021-2- No [id number] 50mg Take 2 [facility] 25 mg 0-20 11-30 tablets by ity of tablet 00:00: 00:00 mouth in [place] 00 :00 the Medical morning Branch and 2 tablets in the evening. lamoTRIgine 2021-02- No [id number] 50mg Take 2 [facility] 25 mg 0-20 11-30 tablets by ity of tablet 00:00: 00:00 mouth in [place] 00 :00 the Medical morning Branch and 2 tablets in the evening. lamoTRIgine 2021-02- No [id number] 50mg Take 2 [facility] 25 mg 0-20 11-30 tablets by ity of tablet 00:00: 00:00 mouth in [place] 00 :00 the Medical morning Branch and 2 tablets in the evening. lamoTRIgine 2021-02- No [id number] 50mg Take 2 [facility] 25 mg 0-20 11-30 tablets by ity of tablet 00:00: 00:00 mouth in [place] 00 :00 the Medical morning Branch and 2 tablets in the evening. clonazePAM 2021-02- No [id number] Take 1 [facility] 1 mg tablet 0-20 11-28 tablet by it y of 00:00: 00:00 mouth [place] 00 :00 twice Medical daily as Branch needed for anxiety. clonazePAM 2021-02- No [id number] Take 1 [facility] 1 mg tablet 0-20 11-28 tablet by it y of 00:00: 00:00 mouth [place] 00 :00 twice Medical daily as Branch needed for anxiety. clonazePAM 2021-02- No [id number] Take 1 [facility] 1 mg tablet 0-20 11-28 tablet by it y of 00:00: 00:00 mouth [place] 00 :00 twice Medical daily as Branch needed for anxiety. clonazePAM 2021-02- No [id number] Take 1 [facility] 1 mg tablet 0-20 11-28 tablet by it y of 00:00: 00:00 mouth [place] 00 :00 twice Medical daily as Branch needed for anxiety. clonazePAM 2021-02- No [id number] Take 1 [facility] 1 mg tablet 0-20 11-28 tablet by it y of 00:00: 00:00 mouth [place] 00 :00 twice Medical daily as Branch needed for anxiety. lamoTRIgine 2021- Yes [id number] 50mg Take 2 [facility] 25 mg 8-26 tablets by ity of tablet 00:00: mouth in [place] 00 the Medical morning Branch and 2 tablets in the evening. lamoTRIgine 2021-0 2- No [id number] 50mg Take 2 [facility] 25 mg 8-26 10-19 tablets by ity of tablet 00:00: 00:00 mouth in [place] 00 :00 the Medical morning Branch and 2 tablets in the evening. lamoTRIgine 2021-2021- No [id number] 50mg Take 2 [facility] 25 mg 8-26 10-19 tablets by ity of tablet 00:00: 00:00 mouth in [place] 00 :00 the Medical morning Branch and 2 tablets in the evening. clonazePAM 2021-0 Yes [id number] Take no [facility] 1 mg tablet 8-25 more than ity of 00:00: 1 mg twice [place] 00 daily as Medical needed for Branch anxiety lithium 600 2021-0 Yes [id number] 600mg Take 1 [facility] mg capsule 8-25 capsule by ity of 00:00: mouth in [place] 00 the Medical morning Branch and 1 capsule in the evening. clonazePAM 2021-2021- No [id number] Take no [facility] 1 mg tablet 8-25 10-19 more than it y of 00:00: 00:00 1 mg twice [place] 00 :00 daily as Medical needed for Branch anxiety lithium 600 2021-0 2021- No [id number] 600mg Take 1 [facility] mg capsule 8-25 10-19 capsule by it y of 00:00: 00:00 mouth in [place] 00 :00 the Medical morning Branch and 1 capsule in the evening. clonazePAM 2021-0 2021- No [id number] Take no [facility] 1 mg tablet 8-25 10-19 more than it y of 00:00: 00:00 1 mg twice [place] 00 :00 daily as Medical needed for Branch anxiety lithium 600 2021-0 2021- No [id number] 600mg Take 1 [facility] mg capsule 8-25 10-19 capsule by it y of 00:00: 00:00 mouth in [place] 00 :00 the Medical morning Branch and 1 capsule in the evening. Lamotrigine 2021-0 2021- No [id number] 50mg Take 1 [facility] 50 mg 8-25 08-26 tablet by ity of tablet 00:00: 00:00 mouth in [place] 00 :00 the Medical morning Branch and 1 tablet in the evening. Lamotrigine 2021-0 2021- No [id number] 50mg Take 1 [facility] 50 mg 8-11 08-25 tablet by ity of tablet 00:00: 00:00 mouth in [place] 00 :00 the Medical morning Branch and 1 tablet in the evening. DULoxetine 2021-0 Yes [id number] 60mg Take 1 [facility] nivers 60 mg 7-27 capsule by ity of capsule 00:00: mouth in [place] 00 the Medical morning Branch and 1 capsule in the evening. DULoxetine 2021- No [id number] 60mg Take 1 [facility] 60 mg 7-27 10-24 capsule by ity of capsule 00:00: 00:00 mouth in [place] 00 :00 the Medical morning Branch and 1 capsule in the evening. DULoxetine 2021-2021- No [id number] 60mg Take 1 [facility] 60 mg 7-27 10-24 capsule by ity of capsule 00:00: 00:00 mouth in [place] 00 :00 the Medical morning Branch and 1 capsule in the evening. DULoxetine 2021- No [id number] 60mg Take 1 [facility] 60 mg 7-27 10-24 capsule by ity of capsule 00:00: 00:00 mouth in [place] 00 :00 the Medical morning Branch and 1 capsule in the evening. Lamotrigine 2021- No [id number] 50mg Take 1 [facility] 50 mg 7-18 08-11 tablet by ity of tablet 00:00: 00:00 mouth in [place] 00 :00 the Medical morning Branch and 1 tablet in the evening. lithium 600 2021-2021- No [id number] 600mg Take 1 [facility] mg capsule 7-13 08-25 capsule by it y of 00:00: 00:00 mouth in [place] 00 :00 the Medical morning Branch and 1 capsule in the evening. traZODone 2021-0 Yes [id number] 50mg Take 1 [facility] nivers 50 mg 6-28 tablet by ity of tablet 00:00: mouth at [place] 00 bedtime. Medical May cut Branch tablet in half. DULoxetine 2021-0 Yes [id number] 60mg Take 1 U nivers 60 mg 6-28 capsule by ity of capsule 00:00: mouth 2 [place] 00 (two) Medical times Branch daily. traZODone 2021-0 Yes [id number] 50mg Take 1 U nivers 50 mg 6-28 tablet by ity of tablet 00:00: mouth at [place] [address] bedtime. Medical May cut Branch tablet in half. DULoxetine 2021-0 Yes [id number] 60mg Take 1 U nivers 60 mg 6-28 capsule by ity of capsule 00:00: mouth 2 [place] [address] (two) Medical times Branch daily. traZODone Yes [id number] 50mg Take 1 U nivers 50 mg 6-28 tablet by ity of tablet 00:00: mouth at [place] 00 bedtime. Medical May cut Branch tablet in half. DULoxetine Yes [id number] 60mg Take 1 U nivers 60 mg 6-28 capsule by ity of capsule 00:00: mouth 2 [place] 00 (two) Medical times Branch daily. DULoxetine Yes [id number] 60mg Take 1 U nivers 60 mg 6-28 capsule by ity of capsule 00:00: mouth 2 [place] [address] (two) Medical times Branch daily. traZODone 2021- No [id number] 50mg Take 1 [facility] 50 mg 6-28 11-21 tablet by ity of tablet 00:00: 00:00 mouth at [place] 00 :00 bedtime. Medical May cut Branch tablet in half. traZODone 2021- No [id number] 50mg Take 1 [facility] 50 mg 6-28 11-21 tablet by ity of tablet 00:00: 00:00 mouth at [place] 00 :00 bedtime. Medical May cut Branch tablet in half. traZODone 2021- No [id number] 50mg Take 1 [facility] 50 mg 6-28 11-21 tablet by ity of tablet 00:00: 00:00 mouth at [place] 00 :00 bedtime. Medical May cut Branch tablet in half. traZODone 2021- No [id number] 50mg Take 1 [facility] 50 mg 6-28 11-21 tablet by ity of tablet 00:00: 00:00 mouth at [place] 00 :00 bedtime. Medical May cut Branch tablet in half. traZODone 2021- No [id number] 50mg Take 1 [facility] 50 mg 6-28 11-21 tablet by ity of tablet 00:00: 00:00 mouth at [place] 00 :00 bedtime. Medical May cut Branch tablet in half. clonazePAM 2021- No [id number] Take no [facility] 1 mg tablet 6-28 08-25 more than it y of 00:00: 00:00 1 mg twice [place] 00 :00 daily as Medical needed for Branch anxiety vitamin 2021-0 Yes [id number] 1000ug Take 1 U nivers B-12 1,000 4-11 tablet by ity of mcg tablet 00:00: mouth [place] 00 daily. Medical Branch cyanocobala 2021-0 Yes [id number] 1000ug 1 mL by [facility] min 1,000 4-11 Intramuscu ity of mcg/mL 00:00: lar route [place] injection 00 weekly. Medical Branch vitamin 2021-0 Yes [id number] 1000ug Take 1 U nivers B-12 1,000 4-11 tablet by ity of mcg tablet 00:00: mouth [place] 00 daily. Medical Branch cyanocobala 2021-0 Yes [id number] 1000ug 1 mL by [facility] min 1,000 4-11 Intramuscu ity of mcg/mL 00:00: lar route [place] injection 00 weekly. Medical Branch vitamin 2021-0 Yes [id number] 1000ug Take 1 U nivers B-12 1,000 4-11 tablet by ity of mcg tablet 00:00: mouth [place] 00 daily. Medical Branch cyanocobala 2021-0 Yes [id number] 1000ug 1 mL by [facility] min 1,000 4-11 Intramuscu ity of mcg/mL 00:00: lar route [place] injection 00 weekly. Medical Branch vitamin 2021-0 Yes [id number] 1000ug Take 1 U nivers B-12 1,000 4-11 tablet by ity of mcg tablet 00:00: mouth [place] 00 daily. Medical Branch cyanocobala 2021-0 Yes [id number] 1000ug 1 mL by [facility] min 1,000 4-11 Intramuscu ity of mcg/mL 00:00: lar route [place] injection 00 weekly. Medical Branch vitamin 2021-0 Yes [id number] 1000ug Take 1 U nivers B-12 1,000 4-11 tablet by ity of mcg tablet 00:00: mouth [place] 00 daily. Medical Branch cyanocobala 2021-0 Yes [id number] 1000ug 1 mL by [facility] min 1,000 4-11 Intramuscu ity of mcg/mL 00:00: lar route [place] injection 00 weekly. Medical Branch vitamin 2021-0 Yes [id number] 1000ug Take 1 U nivers B-12 1,000 4-11 tablet by ity of mcg tablet 00:00: mouth [place] 00 daily. Medical Branch cyanocobala 2021-0 Yes [id number] 1000ug 1 mL by [facility] min 1,000 4-11 Intramuscu ity of mcg/mL 00:00: lar route [place] injection 00 weekly. Medical Branch vitamin 2021-0 Yes [id number] 1000ug Take 1 U nivers B-12 1,000 4-11 tablet by ity of mcg tablet 00:00: mouth [place] 00 daily. Medical Branch cyanocobala 2021-0 Yes [id number] 1000ug 1 mL by [facility] min 1,000 4-11 Intramuscu ity of mcg/mL 00:00: lar route [place] injection 00 weekly. Medical Branch vitamin 2021-0 Yes [id number] 1000ug Take 1 U nivers B-12 1,000 4-11 tablet by ity of mcg tablet 00:00: mouth [place] 00 daily. Medical Branch cyanocobala 2021-0 Yes [id number] 1000ug 1 mL by [facility] min 1,000 4-11 Intramuscu ity of mcg/mL 00:00: lar route [place] injection 00 weekly. Medical Branch vitamin 2021-0 Yes [id number] 1000ug Take 1 U nivers B-12 1,000 4-11 tablet by ity of mcg tablet 00:00: mouth [place] 00 daily. Medical Branch cyanocobala 2021-0 Yes [id number] 1000ug 1 mL by [facility] min 1,000 4-11 Intramuscu ity of mcg/mL 00:00: lar route [place] injection 00 weekly. Medical Branch vitamin 2021-0 Yes [id number] 1000ug Take 1 U nivers B-12 1,000 4-11 tablet by ity of mcg tablet 00:00: mouth [place] 00 daily. Medical Branch cyanocobala 2021-0 Yes [id number] 1000ug 1 mL by [facility] min 1,000 4-11 Intramuscu ity of mcg/mL 00:00: lar route [place] injection 00 weekly. Medical Branch vitamin 2021-0 Yes [id number] 1000ug Take 1 U nivers B-12 1,000 4-11 tablet by ity of mcg tablet 00:00: mouth [place] 00 daily. Medical Branch cyanocobala 2021-0 Yes [id number] 1000ug 1 mL by [facility] min 1,000 4-11 Intramus[facility] ity of mcg/mL 00:00: lar route [place] injection 00 weekly. Medical Branch vitamin 2021-0 Yes [id number] 1000ug Take 1 U nivers B-12 1,000 4-11 tablet by ity of mcg tablet 00:00: mouth [place] 00 daily. Medical Branch cyanocobala 2021-0 Yes [id number] 1000ug 1 mL by [facility] min 1,000 4-11 Intramuscu ity of mcg/mL 00:00: lar route [place] injection 00 weekly. Medical Branch vitamin 2021-0 Yes [id number] 1000ug Take 1 U nivers B-12 1,000 4-11 tablet by ity of mcg tablet 00:00: mouth [place] 00 daily. Medical Branch cyanocobala 2021-0 Yes [id number] 1000ug 1 mL by [facility] min 1,000 4-11 Intramuscu ity of mcg/mL 00:00: lar route [place] injection 00 weekly. Medical Branch vitamin 2021-0 Yes [id number] 1000ug Take 1 U nivers B-12 1,000 4-11 tablet by ity of mcg tablet 00:00: mouth [place] 00 daily. Medical Branch cyanocobala 2021-0 Yes [id number] 1000ug 1 mL by [facility] min 1,000 4-11 Intramus[facility] ity of mcg/mL 00:00: lar route [place] injection 00 weekly. Medical Branch vitamin 2021-0 Yes [id number] 1000ug Take 1 U nivers B-12 1,000 4-11 tablet by ity of mcg tablet 00:00: mouth [place] 00 daily. Medical Branch cyanocobala 2021-0 Yes [id number] 1000ug 1 mL by [facility] min 1,000 4-11 Intramus[facility] ity of mcg/mL 00:00: lar route [place] injection 00 weekly. Medical Branch vitamin 2021-0 Yes [id number] 1000ug Take 1 U nivers B-12 1,000 4-11 tablet by ity of mcg tablet 00:00: mouth [place] 00 daily. Medical Branch cyanocobala 2021-0 Yes [id number] 1000ug 1 mL by [facility] min 1,000 4-11 Intramuscu ity of mcg/mL 00:00: lar route [place] injection 00 weekly. [facility] Branch vitamin 2021-0 Yes [id number] 1000ug Take 1 U nivers B-12 1,000 4-11 tablet by ity of mcg tablet 00:00: mouth [place] 00 daily. Medical Branch cyanocobala 2021-0 Yes [id number] 1000ug 1 mL by [facility] min 1,000 4-11 Intramuscu ity of mcg/mL 00:00: lar route [place] injection 00 weekly. Medical Branch vitamin 2021-0 Yes [id number] 1000ug Take 1 U nivers B-12 1,000 4-11 tablet by ity of mcg tablet 00:00: mouth [place] 00 daily. Medical Branch cyanocobala 2021-0 Yes [id number] 1000ug 1 mL by [facility] min 1,000 4-11 Intr[facility] ity of mcg/mL 00:00: lar route [place] injection 00 weekly. Medical Branch vitamin 2021-0 Yes [id number] 1000ug Take 1 U nivers B-12 1,000 4-11 tablet by ity of mcg tablet 00:00: mouth [place] 00 daily. Medical Branch cyanocobala 2021-0 Yes [id number] 1000ug 1 mL by [facility] min 1,000 4-11 Intr[facility] ity of mcg/mL 00:00: lar route [place] injection 00 weekly. Medical Branch vitamin 2021-0 Yes [id number] 1000ug Take 1 U nivers B-12 1,000 4-11 tablet by ity of mcg tablet 00:00: mouth [place] 00 daily. Medical Branch cyanocobala 2021-0 Yes [id number] 1000ug 1 mL by [facility] min 1,000 4-11 Intr[facility] ity of mcg/mL 00:00: lar route [place] injection 00 weekly. Medical Branch vitamin 2021-0 Yes [id number] 1000ug Take 1 U nivers B-12 1,000 4-11 tablet by ity of mcg tablet 00:00: mouth [place] 00 daily. Medical Branch cyanocobala 2021-0 Yes [id number] 1000ug 1 mL by [facility] min 1,000 4-11 Intramuscu ity of mcg/mL 00:00: lar route [place] injection 00 weekly. [facility] Branch vitamin 2021-0 Yes [id number] 1000ug Take 1 U nivers B-12 1,000 4-11 tablet by ity of mcg tablet 00:00: mouth [place] 00 daily. [facility] Branch cyanocobala 2021-0 Yes [id number] 1000ug 1 mL by [facility] min 1,000 4-11 Intramuscu ity of mcg/mL 00:00: lar route [place] injection 00 weekly. Medical Branch vitamin 2021-0 Yes [id number] 1000ug Take 1 U nivers B-12 1,000 4-11 tablet by ity of mcg tablet 00:00: mouth [place] 00 daily. Medical Branch cyanocobala 2021-0 Yes [id number] 1000ug 1 mL by [facility] min 1,000 4-11 Intramus[facility] ity of mcg/mL 00:00: lar route [place] injection 00 weekly. Medical Branch vitamin 2021-0 Yes [id number] 1000ug Take 1 U nivers B-12 1,000 4-11 tablet by ity of mcg tablet 00:00: mouth [place] 00 daily. Medical Branch cyanocobala 2021-0 Yes [id number] 1000ug 1 mL by [facility] min 1,000 4-11 Intramus[facility] ity of mcg/mL 00:00: lar route [place] injection 00 weekly. Medical Branch vitamin 2021-0 Yes [id number] 1000ug Take 1 U nivers B-12 1,000 4-11 tablet by ity of mcg tablet 00:00: mouth [place] 00 daily. Medical Branch cyanocobala 2021-0 Yes [id number] 1000ug 1 mL by [facility] min 1,000 4-11 Intramuscu ity of mcg/mL 00:00: lar route [place] injection 00 weekly. Medical Branch vitamin 2021-0 Yes [id number] 1000ug Take 1 U nivers B-12 1,000 4-11 tablet by ity of mcg tablet 00:00: mouth [place] 00 daily. Medical Branch cyanocobala 2021-0 Yes [id number] 1000ug 1 mL by [facility] min 1,000 4-11 Intramuscu ity of mcg/mL 00:00: lar route [place] injection 00 weekly. Medical Branch vitamin 2021-0 Yes [id number] 1000ug Take 1 U nivers B-12 1,000 4-11 tablet by ity of mcg tablet 00:00: mouth [place] 00 daily. Medical Branch cyanocobala 2021-0 Yes [id number] 1000ug 1 mL by [facility] min 1,000 4-11 Intramus[facility] ity of mcg/mL 00:00: lar route [place] injection 00 weekly. Medical Branch vitamin 2021-0 Yes [id number] 1000ug Take 1 U nivers B-12 1,000 4-11 tablet by [facility] of mcg tablet 00:00: mouth [place] 00 daily. [facility] cyanocobala 2021-0 Yes [id number] 1000ug 1 mL by [facility] min 1,000 4-11 [facility] of mcg/mL 00:00: lar route [place] injection 00 weekly. [facility] vitamin 2021-0 Yes [id number] 1000ug Take 1 [facility] nivers B-12 1,000 4-11 tablet by [facility] of mcg tablet 00:00: mouth [place] 00 daily. [facility] cyanocobala 2021-0 Yes [id number] 1000ug 1 mL by [facility] min 1,000 4-11 [facility] of mcg/mL 00:00: lar route [place] injection 00 weekly. [facility] vitamin 2021-0 Yes [id number] 1000ug Take 1 [facility] n[facility] B-12 1,000 4-11 tablet by [facility] of mcg tablet 00:00: mouth [place] 00 daily. [facility] cyanocobala 2021-0 Yes [id number] 1000ug 1 mL by [facility] min 1,000 4-11 [facility] of mcg/mL 00:00: lar route [place] injection 00 weekly. [facility] vitamin 2021-0 Yes [id number] 1000ug Take 1 [facility] n[facility] B-12 1,000 4-11 tablet by [facility] of mcg tablet 00:00: mouth [place] 00 daily. [facility] cyanocobala 2021-0 Yes [id number] 1000ug 1 mL by [facility] min 1,000 4-11 [facility] of mcg/mL 00:00: lar route [place] injection 00 weekly. [facility] vitamin 2021-0 Yes [id number] 1000ug Take 1 [facility] nivers B-12 1,000 4-11 tablet by [facility] of mcg tablet 00:00: mouth [place] 00 daily. [facility] cyanocobala 2021-0 Yes [id number] 1000ug 1 mL by [facility] min 1,000 4-11 [facility] of mcg/mL 00:00: lar route [place] injection 00 weekly. [facility] vitamin 2021-0 Yes [id number] 1000ug Take 1 [facility] n[facility] B-12 1,000 4-11 tablet by [facility] of mcg tablet 00:00: mouth [place] 00 daily. [facility] cyanocobala 2021-0 Yes [id number] 1000ug 1 mL by [facility] min 1,000 4-11 [facility] of mcg/mL 00:00: lar route [place] injection 00 weekly. [facility] vitamin 2021-0 Yes [id number] 1000ug Take 1 [facility] n[facility] B-12 1,000 4-11 tablet by [facility] of mcg tablet 00:00: mouth [place] 00 daily. [facility] cyanocobala 2021-0 Yes [id number] 1000ug 1 mL by [facility] min 1,000 4-11 [facility] of mcg/mL 00:00: lar route [place] injection 00 weekly. [facility] vitamin 2021-0 Yes [id number] 1000ug Take 1 [facility] n[facility] B-12 1,000 4-11 tablet by [facility] of mcg tablet 00:00: mouth [place] 00 daily. [facility] cyanocobala 2021-0 Yes [id number] 1000ug 1 mL by [facility] min 1,000 4-11 [facility] mcg/mL 00:00: lar route [place] injection 00 weekly. [facility] vitamin 2021-0 Yes [id number] 1000ug Take 1 [facility] n[facility] B-12 1,000 4-11 tablet by [facility] of mcg tablet 00:00: mouth [place] 00 daily. [facility] cyanocobala 2021-0 Yes [id number] 1000ug 1 mL by [facility] min 1,000 4-11 [facility] of mcg/mL 00:00: lar route [place] injection 00 weekly. [facility] vitamin 2021-0 Yes [id number] 1000ug Take 1 [facility] B-12 1,000 4-11 tablet by [facility] of mcg tablet 00:00: mouth [place] 00 daily. [facility] cyanocobala 2021-0 Yes [id number] 1000ug 1 mL by [facility] min 1,000 4-11 [facility] of mcg/mL 00:00: lar route [place] injection 00 weekly. [facility] vitamin 2021-0 Yes [id number] 1000ug Take 1 [facility] n[facility] B-12 1,000 4-11 tablet by [facility] of mcg tablet 00:00: mouth [place] 00 daily. [facility] cyanocobala 2021-0 Yes [id number] 1000ug 1 mL by [facility] min 1,000 4-11 [facility] of mcg/mL 00:00: lar route [place] injection 00 weekly. [facility] vitamin 2022-0 Yes [id number] 1000ug Take 1 [facility] n[facility] B-12 1,000 4-11 tablet by [facility] of mcg tablet 00:00: mouth [place] 00 daily. [facility] cyanocobala 0 Yes [id number] 1000ug 1 mL by [facility] min 1,000 4-11 [facility] of mcg/mL 00:00: lar route [place] injection 00 weekly. [facility] losartan 0 Yes 20mg Take 20 mg [facility] vers potassium 4-05 by mouth. ity o f (LOSARTAN 09:24: [place] ORAL) [facility] FUROSEMIDE 0 Yes 40mg Take 40 mg [facility] n[facility] ORAL 4-05 by mouth ity of 09:24: daily. [address] losartan 0 Yes 20mg Take 20 mg [facility] potassium 4-05 by mouth. ity o f (LOSARTAN 09:24: [place] ORAL) [facility] FUROSEMIDE 0 Yes 40mg Take 40 mg [facility] nivers ORAL 4-05 by mouth ity of 09:24: daily. [address] losartan 0 Yes 20mg Take 20 mg [facility] potassium 4-05 by mouth. ity o f (LOSARTAN 09:24: [place] ORAL) [facility] [place] FUROSEMIDE 0 Yes 40mg Take 40 mg [facility] nivers ORAL 4-05 by mouth ity of 09:24: daily. [address] losartan 0 Yes 20mg Take 20 mg [facility] potassium 4-05 by mouth. ity o f (LOSARTAN 09:24: [place] ORAL) [address] [place] [address] Branch FUROSEMIDE 0 Yes 40mg Take 40 mg [facility] nivers ORAL 4-05 by mouth ity of 09:24: daily. [address] losartan 0 Yes 20mg Take 20 mg [facility] potassium 4-05 by mouth. ity o f (LOSARTAN 09:24: [place] ORAL) [address] [place] [address] FUROSEMIDE 2021-0 Yes 40mg Take 40 mg [facility] nivers ORAL 4-05 by mouth ity of 09:24: daily. [address] losartan 0 Yes 20mg Take 20 mg [facility] potassium 4-05 by mouth. ity o f (LOSARTAN 09:24: [place] ORAL) [address] [place] [address] FUROSEMIDE 2021-0 Yes 40mg Take 40 mg [facility] nivers ORAL 4-05 by mouth ity of 09:24: daily. [address] losartan 2021-0 Yes 20mg Take 20 mg [facility] potassium 4-05 by mouth. ity o f (LOSARTAN 09:24: [place] ORAL) [address] [place] [address] FUROSEMIDE 2021-0 Yes 40mg Take 40 mg [facility] nivers ORAL 4-05 by mouth ity of 09:24: daily. [address] losartan 2021-0 Yes 20mg Take 20 mg [facility] potassium 4-05 by mouth. ity o f (LOSARTAN 09:24: [place] ORAL) [address] [place] [address] FUROSEMIDE 2021-0 Yes 40mg Take 40 mg [facility] nivers ORAL 4-05 by mouth ity of 09:24: daily. [address] losartan 2021-0 Yes 20mg Take 20 mg [facility] potassium 4-05 by mouth. ity o f (LOSARTAN 09:24: [place] ORAL) [address] [place] [address] FUROSEMIDE 2021-0 Yes 40mg Take 40 mg [facility] n[facility] ORAL 4-05 by mouth ity of 09:24: daily. [address] losartan 2021-0 Yes 20mg Take 20 mg [facility] potassium 4-05 by mouth. ity o f (LOSARTAN 09:24: [place] ORAL) [address] [place] [address] FUROSEMIDE 2021-0 Yes 40mg Take 40 mg [facility] n[facility] ORAL 4-05 by mouth ity of 09:24: daily. [address] losartan 2021-0 Yes 20mg Take 20 mg [facility] potassium 4-05 by mouth. ity o f (LOSARTAN 09:24: [place] ORAL) [address] [place] [address] FUROSEMIDE 2021-0 Yes 40mg Take 40 mg [facility] nivers ORAL 4-05 by mouth ity of 09:24: daily. [address] losartan 2021-0 Yes 20mg Take 20 mg [facility] potassium 4-05 by mouth. ity o f (LOSARTAN 09:24: [place] ORAL) [address] [place] [address] FUROSEMIDE 2021-0 Yes 40mg Take 40 mg [facility] nivers ORAL 4-05 by mouth ity of 09:24: daily. [address] losartan 2021-0 Yes 20mg Take 20 mg [facility] potassium 4-05 by mouth. ity o f (LOSARTAN 09:24: [place] ORAL) [address] [place] [address] FUROSEMIDE 2021-0 Yes 40mg Take 40 mg [facility] nivers ORAL 4-05 by mouth ity of 09:24: daily. [address] losartan 2021-0 Yes 20mg Take 20 mg [facility] potassium 4-05 by mouth. ity o f (LOSARTAN 09:24: [place] ORAL) [address] [place] [address] FUROSEMIDE 2021-0 Yes 40mg Take 40 mg [facility] nivers ORAL 4-05 by mouth ity of 09:24: daily. [address] losartan 2021-0 Yes 20mg Take 20 mg [facility] potassium 4-05 by mouth. ity o f (LOSARTAN 09:24: [place] ORAL) [address] [place] [address] FUROSEMIDE 2021-0 Yes 40mg Take 40 mg [facility] nivers ORAL 4-05 by mouth ity of 09:24: daily. [address] losartan 2021-0 Yes 20mg Take 20 mg [facility] potassium 4-05 by mouth. ity o f (LOSARTAN 09:24: [place] ORAL) [address] [place] [address] FUROSEMIDE 0 Yes 40mg Take 40 mg [facility] nivers ORAL 4-05 by mouth ity of 09:24: daily. [address] losartan 2021-0 Yes 20mg Take 20 mg [facility] potassium 4-05 by mouth. ity o f (LOSARTAN 09:24: [place] ORAL) [address] [place] [address] FUROSEMIDE 2021-0 Yes 40mg Take 40 mg [facility] n[facility] ORAL 4-05 by mouth ity of 09:24: daily. [address] losartan 2021-0 Yes 20mg Take 20 mg [facility] potassium 4-05 by mouth. ity o f (LOSARTAN 09:24: [place] ORAL) [address] [place] [address] FUROSEMIDE 2021-0 Yes 40mg Take 40 mg [facility] nivers ORAL 4-05 by mouth ity of 09:24: daily. [address] losartan 2021-0 Yes 20mg Take 20 mg [facility] potassium 4-05 by mouth. ity o f (LOSARTAN 09:24: [place] ORAL) [address] [place] [address] FUROSEMIDE 2021-0 Yes 40mg Take 40 mg [facility] nivers ORAL 4-05 by mouth ity of 09:24: daily. [address] losartan 2021-0 Yes 20mg Take 20 mg [facility] potassium 4-05 by mouth. ity o f (LOSARTAN 09:24: [place] ORAL) [address] [place] [address] FUROSEMIDE 2021-0 Yes 40mg Take 40 mg [facility] n[facility] ORAL 4-05 by mouth ity of 09:24: daily. [address] losartan 2021-0 Yes 20mg Take 20 mg [facility] potassium 4-05 by mouth. ity o f (LOSARTAN 09:24: [place] ORAL) [address] [place] [address] FUROSEMIDE 2021-0 Yes 40mg Take 40 mg [facility] nivers ORAL 4-05 by mouth ity of 09:24: daily. [address] Branch losartan 2021-0 Yes 20mg Take 20 mg [facility] vers potassium 4-05 by mouth. ity o f (LOSARTAN 09:24: [place] ORAL) [address] [place] [address] FUROSEMIDE 2021-0 Yes 40mg Take 40 mg [facility] nivers ORAL 4-05 by mouth ity of 09:24: daily. [address] losartan 2021-0 Yes 20mg Take 20 mg [facility] potassium 4-05 by mouth. ity o f (LOSARTAN 09:24: [place] ORAL) [address] [place] [address] FUROSEMIDE 2021-0 Yes 40mg Take 40 mg [facility] n[facility] ORAL 4-05 by mouth ity of 09:24: daily. [address] losartan 2021-0 Yes 20mg Take 20 mg [facility] potassium 4-05 by mouth. ity o f (LOSARTAN 09:24: [place] ORAL) [address] [place] [address] FUROSEMIDE 2021-0 Yes 40mg Take 40 mg [facility] nivers ORAL 4-05 by mouth ity of 09:24: daily. [address] losartan 2021-0 Yes 20mg Take 20 mg [facility] potassium 4-05 by mouth. ity o f (LOSARTAN 09:24: [place] ORAL) [address] [place] [address] FUROSEMIDE 2021-0 Yes 40mg Take 40 mg [facility] nivers ORAL 4-05 by mouth ity of 09:24: daily. [address] losartan 2021-0 Yes 20mg Take 20 mg [facility] potassium 4-05 by mouth. ity o f (LOSARTAN 09:24: [place] ORAL) [address] [place] [address] FUROSEMIDE 2021-0 Yes 40mg Take 40 mg [facility] nivers ORAL 4-05 by mouth ity of 09:24: daily. [address] losartan 2021-0 Yes 20mg Take 20 mg [facility] potassium 4-05 by mouth. ity o f (LOSARTAN 09:24: [place] ORAL) [address] [place] [address] FUROSEMIDE 2021-0 Yes 40mg Take 40 mg [facility] n[facility] ORAL 4-05 by mouth ity of 09:24: daily. [address] losartan 2021-0 Yes 20mg Take 20 mg [facility] potassium 4-05 by mouth. ity o f (LOSARTAN 09:24: [place] ORAL) [address] [place] [address] FUROSEMIDE 2022-0 Yes 40mg Take 40 mg [facility] nivers ORAL 4-05 by mouth ity of 09:24: daily. [place] [address] [facility] losartan Yes 20mg Take 20 mg [facility] vers potassium 4-05 by mouth. ity o f (LOSARTAN 09:24: [place] ORAL) 36 [facility] FUROSEMIDE Yes 40mg Take 40 mg [facility] nivers ORAL 4-05 by mouth ity of 09:24: daily. [place] [address] [facility] losartan Yes 20mg Take 20 mg [facility] vers potassium 4-05 by mouth. ity o f (LOSARTAN 09:24: [place] ORAL) 36 [facility] losartan Yes 20mg Take 20 mg [facility] vers potassium 4-05 by mouth. ity o f (LOSARTAN 09:24: [place] ORAL) 36 [facility] losartan Yes 20mg Take 20 mg [facility] potassium 4-05 by mouth. ity o f (LOSARTAN 09:24: [place] ORAL) 36 [facility] losartan Yes 20mg Take 20 mg [facility] potassium 4-05 by mouth. ity o f (LOSARTAN 09:24: [place] ORAL) 36 [facility] losartan Yes 20mg Take 20 mg [facility] potassium 4-05 by mouth. ity o f (LOSARTAN 09:24: [place] ORAL) 36 [facility] losartan Yes 20mg Take 20 mg [facility] potassium 4-05 by mouth. ity o f (LOSARTAN 09:24: [place] ORAL) 36 [facility] losartan Yes 20mg Take 20 mg [facility] potassium 4-05 by mouth. ity o f (LOSARTAN 09:24: [place] ORAL) 36 [facility] losartan Yes 20mg Take 20 mg [facility] potassium 4-05 by mouth. ity o f (LOSARTAN 09:24: [place] ORAL) 36 [facility] losartan Yes 20mg Take 20 mg [facility] vers potassium 4-05 by mouth. ity o f (LOSARTAN 09:24: [place] ORAL) 36 [facility] losartan Yes 20mg Take 20 mg [facility] potassium 4-05 by mouth. ity o f (LOSARTAN 09:24: [place] ORAL) [facility] magnesium Yes [id number] 400mg Take 2 [facility] gluconate 4-05 tablets by ity of 200 mg 00:00: mouth 2 [place] tablet 00 (two) Medical times Branch daily. gabapentin Yes [id number] 300mg Take 1 [facility] 300 mg 4-05 capsule by ity of capsule 00:00: mouth 3 [place] 00 (three) Medical times Branch daily. rizatriptan 2022-0 Yes [id number] 5mg Take 1 [facility] 5 mg 4-05 tablet by [facility] of disintegrat 00:00: mouth [place] ing tablet 00 needed for Med ical Migraine Branch (Take 5mg at the beginning of the headache can repeat 2h after if headaches persists). May repeat in 2 hours if needed magnesium 2022-0 Yes [id number] 400mg Take 2 [facility] gluconate 4-05 tablets by ity of 200 mg 00:00: mouth 2 [place] tablet 00 (two) Medical times Branch daily. gabapentin 2022-0 Yes [id number] 300mg Take 1 [facility] 300 mg 4-05 capsule by [facility]y of capsule 00:00: mouth 3 [place] (three) Medical times Branch daily. rizatriptan 2022-0 Yes [id number] 5mg Take 1 [facility] 5 mg 4-05 tablet by [facility] of disintegrat 00:00: mouth as [place] ing tablet 00 needed for Med ical Migraine Branch (Take 5mg at the beginning of the headache can repeat 2h after if headaches persists). May repeat in 2 hours if needed magnesium 2022-0 Yes [id number] 400mg Take 2 [facility] gluconate 4-05 tablets by ity of 200 mg 00:00: mouth 2 [place] tablet 00 (two) Medical times Branch daily. gabapentin 2022-0 Yes [id number] 300mg Take 1 [facility] 300 mg 4-05 capsule by ity of capsule 00:00: mouth 3 [place] 00 (three) Medical times Branch daily. rizatriptan 2022-0 Yes [id number] 5mg Take 1 [facility] 5 mg 4-05 tablet by [facility] of disintegrat 00:00: mouth as [place] ing tablet 00 needed for Med ical Migraine Branch (Take 5mg at the beginning of the headache can repeat 2h after if headaches persists). May repeat in 2 hours if needed magnesium 2022-0 Yes [id number] 400mg Take 2 [facility] gluconate 4-05 tablets by ity of 200 mg 00:00: mouth 2 [place] tablet 00 (two) Medical times Branch daily. gabapentin 2022-0 Yes [id number] 300mg Take 1 [facility] 300 mg 4-05 capsule by ity of capsule 00:00: mouth 3 [place] 00 (three) Medical times Branch daily. rizatriptan 2022-0 Yes [id number] 5mg Take 1 [facility] 5 mg 4-05 tablet by [facility]y of disintegrat 00:00: mouth as [place] ing tablet 00 needed for Med ical Migraine Branch (Take 5mg at the beginning of the headache can repeat 2h after if headaches persists). May repeat in 2 hours if needed magnesium 2022-0 Yes [id number] 400mg Take 2 [facility] gluconate 4-05 tablets by ity of 200 mg 00:00: mouth 2 [place] tablet 00 (two) Medical times Branch daily. gabapentin 2022-0 Yes [id number] 300mg Take 1 [facility] 300 mg 4-05 capsule by ity of capsule 00:00: mouth 3 [place] 00 (three) Medical times Branch daily. rizatriptan 2022-0 Yes [id number] 5mg Take 1 [facility] 5 mg 4-05 tablet by ity of disintegrat 00:00: mouth as [place] ing tablet 00 needed for Med ical Migraine Branch (Take 5mg at the beginning of the headache can repeat 2h after if headaches persists). May repeat in 2 hours if needed magnesium 2022-0 Yes [id number] 400mg Take 2 [facility] gluconate 4-05 tablets by ity of 200 mg 00:00: mouth 2 [place] tablet 00 (two) Medical times Branch daily. gabapentin 2022-0 Yes [id number] 300mg Take 1 [facility] 300 mg 4-05 capsule by ity of capsule 00:00: mouth 3 00 (three) Medical times Branch daily. rizatriptan 2022-0 Yes [id number] 5mg Take 1 [facility] 5 mg 4-05 tablet by [facility]y of disintegrat 00:00: mouth as [place] ing tablet 00 needed for Med ical Migraine Branch (Take 5mg at the beginning of the headache can repeat 2h after if headaches persists). May repeat in 2 hours if needed magnesium 2022-0 Yes [id number] 400mg Take 2 [facility] gluconate 4-05 tablets by ity of 200 mg 00:00: mouth 2 [place] tablet 00 (two) Medical times Branch daily. gabapentin 2022-0 Yes [id number] 300mg Take 1 [facility] 300 mg 4-05 capsule by ity of capsule 00:00: mouth 3 [place] 00 (three) Medical times Branch daily. rizatriptan 2022-0 Yes [id number] 5mg Take 1 [facility] 5 mg 4-05 tablet by ity of disintegrat 00:00: mouth as [place] ing tablet 00 needed for Med ical Migraine Branch (Take 5mg at the beginning of the headache can repeat 2h after if headaches persists). May repeat in 2 hours if needed magnesium 2022-0 Yes [id number] 400mg Take 2 [facility] gluconate 4-05 tablets by ity of 200 mg 00:00: mouth 2 [place] tablet 00 (two) Medical times Branch daily. gabapentin 2022-0 Yes [id number] 300mg Take 1 [facility] 300 mg 4-05 capsule by ity of capsule 00:00: mouth 3 [place] (three) Medical times Branch daily. rizatriptan 2022-0 Yes [id number] 5mg Take 1 [facility] 5 mg 4-05 tablet by ity of disintegrat 00:00: mouth as [place] ing tablet 00 needed for Med ical Migraine Branch (Take 5mg at the beginning of the headache can repeat 2h after if headaches persists). May repeat in 2 hours if needed magnesium 2022-0 Yes [id number] 400mg Take 2 [facility] gluconate 4-05 tablets by ity of 200 mg 00:00: mouth 2 [place] tablet 00 (two) Medical times Branch daily. gabapentin 2022-0 Yes [id number] 300mg Take 1 [facility] 300 mg 4-05 capsule by ity of capsule 00:00: mouth 3 [place] 00 (three) Medical times Branch daily. rizatriptan 2022-0 Yes [id number] 5mg Take 1 [facility] 5 mg 4-05 tablet by ity of disintegrat 00:00: mouth as [place] ing tablet 00 needed for Med ical Migraine Branch (Take 5mg at the beginning of the headache can repeat 2h after if headaches persists). May repeat in 2 hours if needed magnesium 2022-0 Yes [id number] 400mg Take 2 [facility] gluconate 4-05 tablets by ity of 200 mg 00:00: mouth 2 [place] tablet 00 (two) Medical times Branch daily. gabapentin 2022-0 Yes [id number] 300mg Take 1 [facility] 300 mg 4-05 capsule by ity of capsule 00:00: mouth 3 [place] 00 (three) Medical times Branch daily. rizatriptan 2022-0 Yes [id number] 5mg Take 1 [facility] 5 mg 4-05 tablet by ity of disintegrat 00:00: mouth as [place] ing tablet 00 needed for Med ical Migraine Branch (Take 5mg at the beginning of the headache can repeat 2h after if headaches persists). May repeat in 2 hours if needed magnesium 2022-0 Yes [id number] 400mg Take 2 [facility] gluconate 4-05 tablets by ity of 200 mg 00:00: mouth 2 [place] tablet 00 (two) Medical times Branch daily. gabapentin 2022-0 Yes [id number] 300mg Take 1 [facility] 300 mg 4-05 capsule by ity of capsule 00:00: mouth 3 [place] 00 (three) Medical times Branch daily. rizatriptan 2022-0 Yes [id number] 5mg Take 1 [facility] 5 mg 4-05 tablet by ity of disintegrat 00:00: mouth as [place] ing tablet 00 needed for Med ical Migraine Branch (Take 5mg at the beginning of the headache can repeat 2h after if headaches persists). May repeat in 2 hours if needed magnesium 2022-0 Yes [id number] 400mg Take 2 [facility] gluconate 4-05 tablets by ity of 200 mg 00:00: mouth 2 [place] tablet 00 (two) Medical times Branch daily. gabapentin 2022-0 Yes [id number] 300mg Take 1 [facility] 300 mg 4-05 capsule by ity of capsule 00:00: mouth 3 [place] 00 (three) Medical times Branch daily. rizatriptan 2022-0 Yes [id number] 5mg Take 1 [facility] 5 mg 4-05 tablet by ity of disintegrat 00:00: mouth as [place] ing tablet 00 needed for Med ical Migraine Branch (Take 5mg at the beginning of the headache can repeat 2h after if headaches persists). May repeat in 2 hours if needed magnesium 2022-0 Yes [id number] 400mg Take 2 [facility] gluconate 4-05 tablets by ity of 200 mg 00:00: mouth 2 [place] tablet 00 (two) Medical times Branch daily. gabapentin 2022-0 Yes [id number] 300mg Take 1 [facility] 300 mg 4-05 capsule by ity of capsule 00:00: mouth 3 [place] 00 (three) Medical times Branch daily. rizatriptan 2022-0 Yes [id number] 5mg Take 1 [facility] 5 mg 4-05 tablet by ity of disintegrat 00:00: mouth as [place] ing tablet 00 needed for Med ical Migraine Branch (Take 5mg at the beginning of the headache can repeat 2h after if headaches persists). May repeat in 2 hours if needed magnesium 2022-0 Yes [id number] 400mg Take 2 [facility] gluconate 4-05 tablets by ity of 200 mg 00:00: mouth 2 [place] tablet 00 (two) Medical times Branch daily. gabapentin 2022-0 Yes [id number] 300mg Take 1 [facility] 300 mg 4-05 capsule by ity of capsule 00:00: mouth 3 [place] (three) Medical times Branch daily. rizatriptan 2022-0 Yes [id number] 5mg Take 1 [facility] 5 mg 4-05 tablet by ity of disintegrat 00:00: mouth as [place] ing tablet 00 needed for Med ical Migraine Branch (Take 5mg at the beginning of the headache can repeat 2h after if headaches persists). May repeat in 2 hours if needed magnesium 2022-0 Yes [id number] 400mg Take 2 [facility] gluconate 4-05 tablets by ity of 200 mg 00:00: mouth 2 [place] tablet 00 (two) Medical times Branch daily. gabapentin 2022-0 Yes [id number] 300mg Take 1 [facility] 300 mg 4-05 capsule by ity of capsule 00:00: mouth 3 (three) Medical times Branch daily. rizatriptan 2022-0 Yes [id number] 5mg Take 1 [facility] 5 mg 4-05 tablet by ity of disintegrat 00:00: mouth as [place] tablet 00 needed for Med ical Migraine Branch (Take 5mg at the beginning of the headache can repeat 2h after if headaches persists). May repeat in 2 hours if needed magnesium 2022-0 Yes [id number] 400mg Take 2 [facility] gluconate 4-05 tablets by ity of 200 mg 00:00: mouth 2 [place] tablet 00 (two) Medical times Branch daily. gabapentin 2022-0 Yes [id number] 300mg Take 1 [facility] 300 mg 4-05 capsule by ity of capsule 00:00: mouth 3 [place] 00 (three) Medical times Branch daily. rizatriptan 2022-0 Yes [id number] 5mg Take 1 [facility] 5 mg 4-05 tablet by ity of disintegrat 00:00: mouth as [place] ing tablet 00 needed for Med ical Migraine Branch (Take 5mg at the beginning of the headache can repeat 2h after if headaches persists). May repeat in 2 hours if needed magnesium 2022-0 Yes [id number] 400mg Take 2 [facility] gluconate 4-05 tablets by ity of 200 mg 00:00: mouth 2 [place] tablet 00 (two) Medical times Branch daily. gabapentin 2022-0 Yes [id number] 300mg Take 1 [facility] 300 mg 4-05 capsule by ity of capsule 00:00: mouth 3 [place] 00 (three) Medical times Branch daily. rizatriptan 2022-0 Yes [id number] 5mg Take 1 [facility] 5 mg 4-05 tablet by ity of disintegrat 00:00: mouth as [place] ing tablet 00 needed for Med ical Migraine Branch (Take 5mg at the beginning of the headache can repeat 2h after if headaches persists). May repeat in 2 hours if needed magnesium 2022-0 Yes [id number] 400mg Take 2 [facility] gluconate 4-05 tablets by ity of 200 mg 00:00: mouth 2 [place] tablet 00 (two) Medical times Branch daily. gabapentin 2022-0 Yes [id number] 300mg Take 1 [facility] 300 mg 4-05 capsule by ity of capsule 00:00: mouth 3 (three) Medical times Branch daily. rizatriptan 2022-0 Yes [id number] 5mg Take 1 [facility] 5 mg 4-05 tablet by ity of disintegrat 00:00: mouth as [place] ing tablet 00 needed for Med ical Migraine Branch (Take 5mg at the beginning of the headache can repeat 2h after if headaches persists). May repeat in 2 hours if needed magnesium 2022-0 Yes [id number] 400mg Take 2 [facility] gluconate 4-05 tablets by ity of 200 mg 00:00: mouth 2 [place] tablet 00 (two) Medical times Branch daily. gabapentin 2022-0 Yes [id number] 300mg Take 1 [facility] 300 mg 4-05 capsule by ity of capsule 00:00: mouth 3 [place] (three) Medical times Branch daily. rizatriptan 2022-0 Yes [id number] 5mg Take 1 [facility] 5 mg 4-05 tablet by ity of disintegrat 00:00: mouth as [place] ing tablet 00 needed for Med ical Migraine Branch (Take 5mg at the beginning of the headache can repeat 2h after if headaches persists). May repeat in 2 hours if needed magnesium 2022-0 Yes [id number] 400mg Take 2 [facility] gluconate 4-05 tablets by ity of 200 mg 00:00: mouth 2 [place] tablet 00 (two) Medical times Branch daily. gabapentin 2022-0 Yes [id number] 300mg Take 1 [facility] 300 mg 4-05 capsule by ity of capsule 00:00: mouth 3 [place] 00 (three) Medical times Branch daily. rizatriptan 2022-0 Yes [id number] 5mg Take 1 [facility] 5 mg 4-05 tablet by ity of disintegrat 00:00: mouth as [place] ing tablet 00 needed for Med ical Migraine Branch (Take 5mg at the beginning of the headache can repeat 2h after if headaches persists). May repeat in 2 hours if needed magnesium 2022-0 Yes [id number] 400mg Take 2 [facility] gluconate 4-05 tablets by ity of 200 mg 00:00: mouth 2 [place] tablet 00 (two) Medical times Branch daily. gabapentin 2022-0 Yes [id number] 300mg Take 1 [facility] 300 mg 4-05 capsule by ity of capsule 00:00: mouth 3 [place] 00 (three) Medical times Branch daily. rizatriptan 2022-0 Yes [id number] 5mg Take 1 [facility] 5 mg 4-05 tablet by ity of disintegrat 00:00: mouth as [place] ing tablet 00 needed for Med ical Migraine Branch (Take 5mg at the beginning of the headache can repeat 2h after if headaches persists). May repeat in 2 hours if needed magnesium 2022-0 Yes [id number] 400mg Take 2 [facility] gluconate 4-05 tablets by [facility] 200 mg 00:00: mouth 2 [place] tablet 00 (two) Medical times Branch daily. gabapentin 2022-0 Yes [id number] 300mg Take 1 [facility] 300 mg 4-05 capsule by [facility] capsule 00:00: mouth 3 [place] 00 (three) Medical times Branch daily. rizatriptan 2022-0 Yes [id number] 5mg Take 1 [facility] 5 mg 4-05 tablet by [facility] of disintegrat 00:00: mouth as [place] ing tablet 00 needed for Med ical Migraine Branch (Take 5mg at the beginning of the headache can repeat 2h after if headaches persists). May repeat in 2 hours if needed magnesium 2022-0 Yes [id number] 400mg Take 2 [facility] gluconate 4-05 tablets by [facility] of 200 mg 00:00: mouth 2 [place] tablet 00 (two) Medical times Branch daily. gabapentin 2022-0 Yes [id number] 300mg Take 1 [facility] 300 mg 4-05 capsule by [facility] of capsule 00:00: mouth 3 [place] 00 (three) Medical times Branch daily. rizatriptan 2022-0 Yes [id number] 5mg Take 1 [facility] 5 mg 4-05 tablet by [facility] of disintegrat 00:00: mouth as [place] ing tablet 00 needed for Med ical Migraine Branch (Take 5mg at the beginning of the headache can repeat 2h after if headaches persists). May repeat in 2 hours if needed magnesium 2022-0 Yes [id number] 400mg Take 2 [facility] gluconate 4-05 tablets by [facility] of 200 mg 00:00: mouth 2 [place] tablet 00 (two) Medical times Branch daily. gabapentin 2022-0 Yes [id number] 300mg Take 1 [facility] 300 mg 4-05 capsule by [facility] of capsule 00:00: mouth 3 [place] (three) Medical times Branch daily. rizatriptan 2022-0 Yes [id number] 5mg Take 1 [facility] 5 mg 4-05 tablet by [facility] disintegrat 00:00: mouth as [place] ing tablet 00 needed for Med ical Migraine Branch (Take 5mg at the beginning of the headache can repeat 2h after if headaches persists). May repeat in 2 hours if needed magnesium 2022-0 Yes [id number] 400mg Take 2 [facility] gluconate 4-05 tablets by [facility] of 200 mg 00:00: mouth 2 [place] tablet 00 (two) Medical times Branch daily. gabapentin 2022-0 Yes [id number] 300mg Take 1 [facility] 300 mg 4-05 capsule by [facility] of capsule 00:00: mouth 3 [place] 00 (three) Medical times Branch daily. rizatriptan 2022-0 Yes [id number] 5mg Take 1 [facility] 5 mg 4-05 tablet by [facility] disintegrat 00:00: mouth as [place] ing tablet 00 needed for Med ical Migraine Branch (Take 5mg at the beginning of the headache can repeat 2h after if headaches persists). May repeat in 2 hours if needed magnesium 2022-0 Yes [id number] 400mg Take 2 [facility] gluconate 4-05 tablets by [facility] of 200 mg 00:00: mouth 2 [place] tablet 00 (two) Medical times Branch daily. gabapentin 2022-0 Yes [id number] 300mg Take 1 [facility] 300 mg 4-05 capsule by [facility] of capsule 00:00: mouth 3 [place] (three) Medical times Branch daily. rizatriptan 2022-0 Yes [id number] 5mg Take 1 [facility] 5 mg 4-05 tablet by [facility] disintegrat 00:00: mouth as [place] ing tablet 00 needed for Med ical Migraine Branch (Take 5mg at the beginning of the headache can repeat 2h after if headaches persists). May repeat in 2 hours if needed magnesium 2022-0 Yes [id number] 400mg Take 2 [facility] gluconate 4-05 tablets by [facility] of 200 mg 00:00: mouth 2 [place] tablet 00 (two) Medical times Branch daily. gabapentin 2022-0 Yes [id number] 300mg Take 1 [facility] 300 mg 4-05 capsule by [facility] of capsule 00:00: mouth 3 [place] (three) Medical times Branch daily. rizatriptan 2022-0 Yes [id number] 5mg Take 1 [facility] 5 mg 4-05 tablet by [facility] disintegrat 00:00: mouth as [place] ing tablet 00 needed for Med ical Migraine Branch (Take 5mg at the beginning of the headache can repeat 2h after if headaches persists). May repeat in 2 hours if needed magnesium 2022-0 Yes [id number] 400mg Take 2 [facility] gluconate 4-05 tablets by [facility] of 200 mg 00:00: mouth 2 [place] tablet 00 (two) Medical times Branch daily. gabapentin 2022-0 Yes [id number] 300mg Take 1 [facility] 300 mg 4-05 capsule by [facility] of capsule 00:00: mouth 3 [place] (three) Medical times Branch daily. rizatriptan 2022-0 Yes [id number] 5mg Take 1 [facility] 5 mg 4-05 tablet by [facility] of disintegrat 00:00: mouth as [place] ing tablet 00 needed for Med ical Migraine Branch (Take 5mg at the beginning of the headache can repeat 2h after if headaches persists). May repeat in 2 hours if needed magnesium 2022-0 Yes [id number] 400mg Take 2 [facility] gluconate 4-05 tablets by [facility] of 200 mg 00:00: mouth 2 [place] tablet 00 (two) Medical times Branch daily. gabapentin 2022-0 Yes [id number] 300mg Take 1 [facility] 300 mg 4-05 capsule by [facility] of capsule 00:00: mouth 3 [place] (three) Medical times Branch daily. rizatriptan 2022-0 Yes [id number] 5mg Take 1 [facility] 5 mg 4-05 tablet by [facility] disintegrat 00:00: mouth as [place] ing tablet 00 needed for Med ical Migraine Branch (Take 5mg at the beginning of the headache can repeat 2h after if headaches persists). May repeat in 2 hours if needed magnesium 2022-0 Yes [id number] 400mg Take 2 [facility] gluconate 4-05 tablets by [facility] of 200 mg 00:00: mouth 2 [place] tablet 00 (two) Medical times Branch daily. gabapentin 2022-0 Yes [id number] 300mg Take 1 [facility] 300 mg 4-05 capsule by [facility] of capsule 00:00: mouth 3 [place] (three) Medical times Branch daily. rizatriptan 2022-0 Yes [id number] 5mg Take 1 [facility] 5 mg 4-05 tablet by [facility] disintegrat 00:00: mouth as [place] ing tablet 00 needed for Med ical Migraine Branch (Take 5mg at the beginning of the headache can repeat 2h after if headaches persists). May repeat in 2 hours if needed magnesium 2022-0 Yes [id number] 400mg Take 2 [facility] gluconate 4-05 tablets by [facility] of 200 mg 00:00: mouth 2 [place] tablet 00 (two) Medical times Branch daily. gabapentin 2022-0 Yes [id number] 300mg Take 1 [facility] 300 mg 4-05 capsule by [facility] of capsule 00:00: mouth 3 [place] (three) Medical times Branch daily. rizatriptan 2022-0 Yes [id number] 5mg Take 1 [facility] 5 mg 4-05 tablet by [facility] of disintegrat 00:00: mouth as [place] ing tablet 00 needed for Med ical Migraine Branch (Take 5mg at the beginning of the headache can repeat 2h after if headaches persists). May repeat in 2 hours if needed magnesium 2022-0 Yes [id number] 400mg Take 2 [facility] gluconate 4-05 tablets by [facility] of 200 mg 00:00: mouth 2 [place] tablet 00 (two) Medical times Branch daily. gabapentin 2022-0 Yes [id number] 300mg Take 1 [facility] 300 mg 4-05 capsule by [facility] of capsule 00:00: mouth 3 [place] 00 (three) Medical times Branch daily. rizatriptan 2022-0 Yes [id number] 5mg Take 1 [facility] 5 mg 4-05 tablet by [facility] of disintegrat 00:00: mouth as [place] ing tablet 00 needed for Med ical Migraine Branch (Take 5mg at the beginning of the headache can repeat 2h after if headaches persists). May repeat in 2 hours if needed magnesium 2022-0 Yes [id number] 400mg Take 2 [facility] gluconate 4-05 tablets by [facility] of 200 mg 00:00: mouth 2 [place] tablet 00 (two) Medical times Branch daily. gabapentin 2022-0 Yes [id number] 300mg Take 1 [facility] 300 mg 4-05 capsule by [facility] of capsule 00:00: mouth 3 [place] 00 (three) Medical times Branch daily. rizatriptan 2022-0 Yes [id number] 5mg Take 1 [facility] 5 mg 4-05 tablet by [facility] of disintegrat 00:00: mouth as [place] ing tablet 00 needed for Med ical Migraine Branch (Take 5mg at the beginning of the headache can repeat 2h after if headaches persists). May repeat in 2 hours if needed magnesium 2022-0 Yes [id number] 400mg Take 2 [facility] gluconate 4-05 tablets by [facility] of 200 mg 00:00: mouth 2 [place] tablet 00 (two) Medical times Branch daily. gabapentin 2022-0 Yes [id number] 300mg Take 1 [facility] 300 mg 4-05 capsule by [facility] of capsule 00:00: mouth 3 [place] 00 (three) Medical times Branch daily. rizatriptan 2022-0 Yes [id number] 5mg Take 1 [facility] 5 mg 4-05 tablet by [facility] of disintegrat 00:00: mouth as [place] ing tablet 00 needed for Med ical Migraine Branch (Take 5mg at the beginning of the headache can repeat 2h after if headaches persists). May repeat in 2 hours if needed magnesium 2022-0 Yes [id number] 400mg Take 2 [facility] gluconate 4-05 tablets by [facility] of 200 mg 00:00: mouth 2 [place] tablet 00 (two) Medical times Branch daily. gabapentin 2022-0 Yes [id number] 300mg Take 1 [facility] 300 mg 4-05 capsule by [facility] of capsule 00:00: mouth 3 [place] (three) Medical times Branch daily. rizatriptan 2022-0 Yes [id number] 5mg Take 1 [facility] 5 mg 4-05 tablet by [facility] of disintegrat 00:00: mouth as [place] ing tablet 00 needed for Med ical Migraine Branch (Take 5mg at the beginning of the headache can repeat 2h after if headaches persists). May repeat in 2 hours if needed magnesium 2022-0 Yes [id number] 400mg Take 2 [facility] gluconate 4-05 tablets by [facility] of 200 mg 00:00: mouth 2 [place] tablet 00 (two) Medical times Branch daily. gabapentin 2022-0 Yes [id number] 300mg Take 1 [facility] 300 mg 4-05 capsule by [facility] of capsule 00:00: mouth 3 [place] (three) Medical times Branch daily. rizatriptan 2022-0 Yes [id number] 5mg Take 1 [facility] 5 mg 4-05 tablet by [facility] of disintegrat 00:00: mouth as [place] ing tablet 00 needed for Med ical Migraine Branch (Take 5mg at the beginning of the headache can repeat 2h after if headaches persists). May repeat in 2 hours if needed magnesium 2022-0 Yes [id number] 400mg Take 2 [facility] gluconate 4-05 tablets by [facility] of 200 mg 00:00: mouth 2 [place] tablet 00 (two) Medical times Branch daily. gabapentin 2022-0 Yes [id number] 300mg Take 1 [facility] 300 mg 4-05 capsule by [facility] of capsule 00:00: mouth 3 [place] (three) Medical times Branch daily. rizatriptan 2022-0 Yes [id number] 5mg Take 1 [facility] 5 mg 4-05 tablet by [facility] of disintegrat 00:00: mouth as [place] ing tablet 00 needed for Med ical Migraine Branch (Take 5mg at the beginning of the headache can repeat 2h after if headaches persists). May repeat in 2 hours if needed magnesium 2022-0 Yes [id number] 400mg Take 2 [facility] gluconate 4-05 tablets by [facility] of 200 mg 00:00: mouth 2 [place] tablet 00 (two) Medical times Branch daily. gabapentin 2022-0 Yes [id number] 300mg Take 1 [facility] 300 mg 4-05 capsule by [facility] of capsule 00:00: mouth 3 [place] (three) Medical times Branch daily. rizatriptan 2022-0 Yes [id number] 5mg Take 1 [facility] 5 mg 4-05 tablet by [facility] of disintegrat 00:00: mouth as [place] ing tablet 00 needed for Med ical Migraine Branch (Take 5mg at the beginning of the headache can repeat 2h after if headaches persists). May repeat in 2 hours if needed magnesium 2021-0 Yes [id number] 400mg Take 2 [facility] gluconate 4-05 tablets by [facility] of 200 mg 00:00: mouth 2 [place] tablet 00 (two) Medical times Branch daily. gabapentin 2021-0 Yes [id number] 300mg Take 1 [facility] 300 mg 4-05 capsule by [facility] of capsule 00:00: mouth 3 [place] 00 (three) Medical times Branch daily. rizatriptan 2021-0 Yes [id number] 5mg Take 1 [facility] 5 mg 4-05 tablet by [facility] of disintegrat 00:00: mouth as [place] ing tablet 00 needed for Med ical Migraine Branch (Take 5mg at the beginning of the headache can repeat 2h after if headaches persists). May repeat in 2 hours if needed ondansetron 2020-0 Yes [id number] 4mg Take 1 [facility] (ZOFRAN 7-22 tablet by ity of ODT) 4 mg 00:00: mouth [place] disintegrat 00 every 8 Medic al ing tablet (eight) Branch hours as needed for Nausea and Vomiting (N/V). ondansetron 0 Yes [id number] 4mg Take 1 [facility] (ZOFRAN 7-22 tablet by ity of ODT) 4 mg 00:00: mouth [place] disintegrat 00 every 8 Medic al ing tablet (eight) Branch hours as needed for Nausea and Vomiting (N/V). ondansetron 0 Yes [id number] 4mg Take 1 [facility] (ZOFRAN 7-22 tablet by ity of ODT) 4 mg 00:00: mouth [place] disintegrat 00 every 8 Medic al ing tablet (eight) Branch hours as needed for Nausea and Vomiting (N/V). ondansetron 0 Yes [id number] 4mg Take 1 [facility] (ZOFRAN 7-22 tablet by ity of ODT) 4 mg 00:00: mouth [place] disintegrat 00 every 8 Medic al ing tablet (eight) Branch hours as needed for Nausea and Vomiting (N/V). ondansetron 2020-0 Yes [id number] 4mg Take 1 [facility] (ZOFRAN 7-22 tablet by ity of ODT) 4 mg 00:00: mouth [place] disintegrat 00 every 8 Medic al ing tablet (eight) Branch hours as needed for Nausea and Vomiting (N/V). ondansetron 2020-0 Yes [id number] 4mg Take 1 [facility] (ZOFRAN 7-22 tablet by ity of ODT) 4 mg 00:00: mouth [place] disintegrat 00 every 8 Medic al ing tablet (eight) Branch hours as needed for Nausea and Vomiting (N/V). ondansetron 2020-0 Yes [id number] 4mg Take 1 [facility] (ZOFRAN 7-22 tablet by ity of ODT) 4 mg 00:00: mouth [place] disintegrat 00 every 8 Medic al ing tablet (eight) Branch hours as needed for Nausea and Vomiting (N/V). ondansetron 2020-0 Yes [id number] 4mg Take 1 [facility] (ZOFRAN 7-22 tablet by ity of ODT) 4 mg 00:00: mouth [place] disintegrat 00 every 8 Medic al ing tablet (eight) Branch hours as needed for Nausea and Vomiting (N/V). ondansetron 2020-0 Yes [id number] 4mg Take 1 [facility] (ZOFRAN 7-22 tablet by ity of ODT) 4 mg 00:00: mouth [place] disintegrat 00 every 8 Medic al ing tablet (eight) Branch hours as needed for Nausea and Vomiting (N/V). ondansetron 2020-0 Yes [id number] 4mg Take 1 [facility] (ZOFRAN 7-22 tablet by ity of ODT) 4 mg 00:00: mouth [place] disintegrat 00 every 8 Medic al ing tablet (eight) Branch hours as needed for Nausea and Vomiting (N/V). ondansetron 2020-0 Yes [id number] 4mg Take 1 [facility] (ZOFRAN 7-22 tablet by ity of ODT) 4 mg 00:00: mouth [place] disintegrat 00 every 8 Medic al ing tablet (eight) Branch hours as needed for Nausea and Vomiting (N/V). ondansetron 2020-0 Yes [id number] 4mg Take 1 [facility] (ZOFRAN 7-22 tablet by ity of ODT) 4 mg 00:00: mouth [place] disintegrat 00 every 8 Medic al ing tablet (eight) Branch hours as needed for Nausea and Vomiting (N/V). ondansetron 2021-0 Yes [id number] 4mg Take 1 [facility] (ZOFRAN 7-22 tablet by ity of ODT) 4 mg 00:00: mouth [place] disintegrat 00 every 8 Medic al ing tablet (eight) Branch hours as needed for Nausea and Vomiting (N/V). ondansetron 2020-0 Yes [id number] 4mg Take 1 [facility] (ZOFRAN 7-22 tablet by ity of ODT) 4 mg 00:00: mouth [place] disintegrat 00 every 8 Medic al ing tablet (eight) Branch hours as needed for Nausea and Vomiting (N/V). ondansetron 2020-0 Yes [id number] 4mg Take 1 [facility] (ZOFRAN 7-22 tablet by ity of ODT) 4 mg 00:00: mouth [place] disintegrat 00 every 8 Medic al ing tablet (eight) Branch hours as needed for Nausea and Vomiting (N/V). ondansetron 2020-0 Yes [id number] 4mg Take 1 [facility] (ZOFRAN 7-22 tablet by ity of ODT) 4 mg 00:00: mouth [place] disintegrat 00 every 8 Medic al ing tablet (eight) Branch hours as needed for Nausea and Vomiting (N/V). ondansetron 2020-0 Yes [id number] 4mg Take 1 [facility] (ZOFRAN 7-22 tablet by ity of ODT) 4 mg 00:00: mouth [place] disintegrat 00 every 8 Medic al ing tablet (eight) Branch hours as needed for Nausea and Vomiting (N/V). ondansetron 2020-0 Yes [id number] 4mg Take 1 [facility] (ZOFRAN 7-22 tablet by ity of ODT) 4 mg 00:00: mouth [place] disintegrat 00 every 8 Medic al ing tablet (eight) Branch hours as needed for Nausea and Vomiting (N/V). ondansetron 1-0 Yes [id number] 4mg Take 1 [facility] (ZOFRAN 7-22 tablet by ity of ODT) 4 mg 00:00: mouth [place] disintegrat 00 every 8 Medic al ing tablet (eight) Branch hours as needed for Nausea and Vomiting (N/V). ondansetron 1-0 Yes [id number] 4mg Take 1 [facility] (ZOFRAN 7-22 tablet by ity of ODT) 4 mg 00:00: mouth [place] disintegrat 00 every 8 Medic al ing tablet (eight) Branch hours as needed for Nausea and Vomiting (N/V). ondansetron 1-0 Yes [id number] 4mg Take 1 [facility] (ZOFRAN 7-22 tablet by ity of ODT) 4 mg 00:00: mouth [place] disintegrat 00 every 8 Medic al ing tablet (eight) Branch hours as needed for Nausea and Vomiting (N/V). ondansetron 2020-0 Yes [id number] 4mg Take 1 [facility] (ZOFRAN 7-22 tablet by ity of ODT) 4 mg 00:00: mouth [place] disintegrat 00 every 8 Medic al ing tablet (eight) Branch hours as needed for Nausea and Vomiting (N/V). ondansetron 1-0 Yes [id number] 4mg Take 1 [facility] (ZOFRAN 7-22 tablet by ity of ODT) 4 mg 00:00: mouth [place] disintegrat 00 every 8 Medic al ing tablet (eight) Branch hours as needed for Nausea and Vomiting (N/V). ondansetron 2020-0 Yes [id number] 4mg Take 1 [facility] (ZOFRAN 7-22 tablet by ity of ODT) 4 mg 00:00: mouth [place] disintegrat 00 every 8 Medic al ing tablet (eight) Branch hours as needed for Nausea and Vomiting (N/V). ondansetron 1-0 Yes [id number] 4mg Take 1 [facility] (ZOFRAN 7-22 tablet by ity of ODT) 4 mg 00:00: mouth [place] disintegrat 00 every 8 Medic al ing tablet (eight) Branch hours as needed for Nausea and Vomiting (N/V). ondansetron 1-0 Yes [id number] 4mg Take 1 [facility] (ZOFRAN 7-22 tablet by ity of ODT) 4 mg 00:00: mouth [place] disintegrat 00 every 8 Medic al ing tablet (eight) Branch hours as needed for Nausea and Vomiting (N/V). ondansetron 2021-0 Yes [id number] 4mg Take 1 [facility] (ZOFRAN 7-22 tablet by ity of ODT) 4 mg 00:00: mouth [place] disintegrat 00 every 8 Medic al ing tablet (eight) Branch hours as needed for Nausea and Vomiting (N/V). ondansetron 2020-0 Yes [id number] 4mg Take 1 [facility] (ZOFRAN 7-22 tablet by ity of ODT) 4 mg 00:00: mouth [place] disintegrat 00 every 8 Medic al ing tablet (eight) Branch hours as needed for Nausea and Vomiting (N/V). ondansetron 2020-0 Yes [id number] 4mg Take 1 [facility] (ZOFRAN 7-22 tablet by ity of ODT) 4 mg 00:00: mouth [place] disintegrat 00 every 8 Medic al ing tablet (eight) Branch hours as needed for Nausea and Vomiting (N/V). ondansetron 2020-0 Yes [id number] 4mg Take 1 [facility] (ZOFRAN 7-22 tablet by ity of ODT) 4 mg 00:00: mouth [place] disintegrat 00 every 8 Medic al ing tablet (eight) Branch hours as needed for Nausea and Vomiting (N/V). ondansetron 2020-0 Yes [id number] 4mg Take 1 [facility] (ZOFRAN 7-22 tablet by ity of ODT) 4 mg 00:00: mouth [place] disintegrat 00 every 8 Medic al ing tablet (eight) Branch hours as needed for Nausea and Vomiting (N/V). ondansetron 2020-0 Yes [id number] 4mg Take 1 [facility] (ZOFRAN 7-22 tablet by ity of ODT) 4 mg 00:00: mouth [place] disintegrat 00 every 8 Medic al ing tablet (eight) Branch hours as needed for Nausea and Vomiting (N/V). ondansetron 2020-0 Yes [id number] 4mg Take 1 [facility] (ZOFRAN 7-22 tablet by ity of ODT) 4 mg 00:00: mouth [place] disintegrat 00 every 8 Medic al ing tablet (eight) Branch hours as needed for Nausea and Vomiting (N/V). ondansetron 2020-0 Yes [id number] 4mg Take 1 [facility] (ZOFRAN 7-22 tablet by ity of ODT) 4 mg 00:00: mouth [place] disintegrat 00 every 8 Medic al ing tablet (eight) Branch hours as needed for Nausea and Vomiting (N/V). ondansetron 2020-0 Yes [id number] 4mg Take 1 [facility] (ZOFRAN 7-22 tablet by ity of ODT) 4 mg 00:00: mouth [place] disintegrat 00 every 8 Medic al ing tablet (eight) Branch hours as needed for Nausea and Vomiting (N/V). ondansetron 2021-0 Yes [id number] 4mg Take 1 [facility] (ZOFRAN 7-22 tablet by ity of ODT) 4 mg 00:00: mouth [place] disintegrat 00 every 8 Medic al ing tablet (eight) Branch hours as needed for Nausea and Vomiting (N/V). ondansetron 2021-0 Yes [id number] 4mg Take 1 [facility] (ZOFRAN 7-22 tablet by ity of ODT) 4 mg 00:00: mouth [place] disintegrat 00 every 8 Medic al ing tablet (eight) Branch hours as needed for Nausea and Vomiting (N/V). ondansetron 2021-0 Yes [id number] 4mg Take 1 [facility] (ZOFRAN 7-22 tablet by ity of ODT) 4 mg 00:00: mouth [place] disintegrat 00 every 8 Medic al ing tablet (eight) Branch hours as needed for Nausea and Vomiting (N/V). ondansetron 1-0 Yes [id number] 4mg Take 1 [facility] (ZOFRAN 7-22 tablet [...] by mouth ity of tablet 13:17: at [place] [address] bedtime. Medical Branch allopurinoL 2020-0 Yes 100mg Take 100 [facility] nivers 100 mg 6-24 mg by ity of tablet 13:17: mouth [place] 52 daily. Medical Branch atorvastati 2020-0 Yes 10mg Take 10 mg [facility] n 10 mg 6-24 by mouth ity of tablet 13:17: at [place] 52 bedtime. Medical Branch allopurinoL 2020-0 Yes 100mg Take 100 [facility] nivers 100 mg 6-24 mg by ity of tablet 13:17: mouth [place] 52 daily. Medical Branch atorvastati 2020-0 Yes 10mg Take 10 mg [facility] n 10 mg 6-24 by mouth ity of tablet 13:17: at [place] [address] bedtime. Medical Branch allopurinoL 2020-0 Yes 100mg Take 100 [facility] nivers 100 mg 6-24 mg by ity of tablet 13:17: mouth [place] 52 daily. Medical Branch atorvastati 2020-0 Yes 10mg Take 10 mg [facility] n 10 mg 6-24 by mouth ity of tablet 13:17: at [place] [address] bedtime. Medical Branch allopurinoL 2020-0 Yes 100mg Take 100 [facility] nivers 100 mg 6-24 mg by ity of tablet 13:17: mouth [place] 52 daily. Medical Branch atorvastati 2020-0 Yes 10mg Take 10 mg [facility] n 10 mg 6-24 by mouth ity of tablet 13:17: at [place] [address] bedtime. Medical Branch allopurinoL 2020-0 Yes 100mg Take 100 [facility] nivers 100 mg 6-24 mg by ity of tablet 13:17: mouth [place] 52 daily. Medical Branch atorvastati 2020-0 Yes 10mg Take 10 mg [facility] n 10 mg 6-24 by mouth ity of tablet 13:17: at [place] [address] bedtime. Medical Branch allopurinoL 2020-0 Yes 100mg Take 100 [facility] nivers 100 mg 6-24 mg by ity of tablet 13:17: mouth [place] 52 daily. Medical Branch atorvastati 2020-0 Yes 10mg Take 10 mg [facility] n 10 mg 6-24 by mouth ity of tablet 13:17: at [place] [address] bedtime. Medical Branch allopurinoL 2020-0 Yes 100mg [...] by mouth ity of tablet 13:17: at [place] 52 bedtime. Medical Branch allopurinoL 2020-0 Yes 100mg Take 100 [facility] nivers 100 mg 6-24 mg by ity of tablet 13:17: mouth [place] 52 daily. Medical Branch atorvastati 2020-0 Yes 10mg Take 10 mg [facility] n 10 mg 6-24 by mouth ity of tablet 13:17: at [place] [address] bedtime. Medical Branch allopurinoL 2020-0 Yes 100mg Take 100 [facility] nivers 100 mg 6-24 mg by ity of tablet 13:17: mouth [place] 52 daily. Medical Branch atorvastati 2020-0 Yes 10mg Take 10 mg [facility] n 10 mg 6-24 by mouth ity of tablet 13:17: at [place] [address] bedtime. Medical Branch allopurinoL 2020-0 Yes 100mg Take 100 [facility] nivers 100 mg 6-24 mg by ity of tablet 13:17: mouth [place] 52 daily. Medical Branch atorvastati 2020-0 Yes 10mg Take 10 mg [facility] n 10 mg 6-24 by mouth ity of tablet 13:17: at [place] [address] bedtime. Medical Branch allopurinoL 2020-0 Yes 100mg Take 100 [facility] nivers 100 mg 6-24 mg by ity of tablet 13:17: mouth [place] 52 daily. Medical Branch atorvastati 2020-0 Yes 10mg Take 10 mg [facility] n 10 mg 6-24 by mouth ity of tablet 13:17: at [place] 52 bedtime. Medical Branch allopurinoL 2020-0 Yes 100mg Take 100 U nivers 100 mg 6-24 mg by ity of tablet 13:17: mouth [place] 52 daily. Medical Branch atorvastati 2020-0 Yes 10mg Take 10 mg [facility] n 10 mg 6-24 by mouth ity of tablet 13:17: at [place] 52 bedtime. Medical Branch allopurinoL 2020-0 Yes 100mg Take 100 U nivers 100 mg 6-24 mg by ity of tablet 13:17: mouth [place] 52 daily. Medical Branch atorvastati 2020-0 Yes 10mg Take 10 mg [facility] n 10 mg 6-24 by mouth ity of tablet 13:17: at [place] 52 bedtime. Medical Branch allopurinoL 2020-0 Yes 100mg Take 100 [facility] nivers 100 mg 6-24 mg by ity of tablet 13:17: mouth [place] 52 daily. Medical Branch atorvastati 2020-0 Yes 10mg Take 10 mg [facility] n 10 mg 6-24 by mouth ity of tablet 13:17: at [place] [address] bedtime. Medical Branch allopurinoL 2020-0 Yes 100mg Take 100 [facility] nivers 100 mg 6-24 mg by ity of tablet 13:17: mouth [place] 52 daily. Medical Branch atorvastati 2020-0 Yes 10mg Take 10 mg [facility] n 10 mg 6-24 by mouth ity of tablet 13:17: at [place] [address] bedtime. Medical Branch allopurinoL 2020-0 Yes 100mg Take 100 U nivers 100 mg 6-24 mg by ity of tablet 13:17: mouth [place] 52 daily. Medical Branch atorvastati 2020-0 Yes 10mg Take 10 mg [facility] n 10 mg 6-24 by mouth ity of tablet 13:17: at [place] [address] bedtime. Medical Branch allopurinoL 2020-0 Yes 100mg Take 100 [facility] nivers 100 mg 6-24 mg by ity of tablet 13:17: mouth [place] 52 daily. Medical Branch atorvastati 2020-0 Yes 10mg Take 10 mg [facility] n 10 mg 6-24 by mouth ity of tablet 13:17: at [place] [address] bedtime. Medical Branch allopurinoL 2020-0 Yes 100mg Take 100 U nivers 100 mg 6-24 mg by ity of tablet 13:17: mouth [place] 52 daily. Medical Branch atorvastati 2020-0 Yes 10mg Take 10 mg [facility] n 10 mg 6-24 by mouth ity of tablet 13:17: at [place] [address] bedtime. Medical Branch allopurinoL 2020-0 Yes 100mg [...] by mouth ity of tablet 13:17: at [place] [address] bedtime. Medical Branch allopurinoL 2020-0 Yes 100mg Take 100 U nivers 100 mg 6-24 mg by ity of tablet 13:17: mouth [place] 52 daily. Medical Branch atorvastati 2020-0 Yes 10mg Take 10 mg [facility] n 10 mg 6-24 by mouth ity of tablet 13:17: at [place] [address] bedtime. Medical Branch allopurinoL 2020-0 Yes 100mg Take 100 U nivers 100 mg 6-24 mg by ity of tablet 13:17: mouth [place] 52 daily. Medical Branch atorvastati 2020-0 Yes 10mg Take 10 mg Univers n 10 mg 6-24 by mouth ity of tablet 13:17: at [place] [address] bedtime. Medical Branch allopurinoL 2020-0 Yes 100mg Take 100 U nivers 100 mg 6-24 mg by ity of tablet 13:17: mouth [place] 52 daily. Medical Branch atorvastati 2020-0 Yes 10mg Take 10 mg Univers n 10 mg 6-24 by mouth ity of tablet 13:17: at [place] [address] bedtime. Medical Branch allopurinoL 2020-0 Yes 100mg Take 100 U nivers 100 mg 6-24 mg by ity of tablet 13:17: mouth [place] 52 daily. Medical Branch atorvastati 2020-0 Yes 10mg Take 10 mg Univers n 10 mg 6-24 by mouth ity of tablet 13:17: at [place] [address] bedtime. Medical Branch allopurinoL 2020-0 Yes 100mg Take 100 U nivers 100 mg 6-24 mg by ity of tablet 13:17: mouth [place] 52 daily. Medical Branch atorvastati 2020-0 Yes 10mg Take 10 mg Univers n 10 mg 6-24 by mouth ity of tablet 13:17: at [place] [address] bedtime. Medical Branch allopurinoL 2020-0 Yes 100mg Take 100 U nivers 100 mg 6-24 mg by ity of tablet 13:17: mouth [place] 52 daily. Medical Branch atorvastati 2020-0 Yes 10mg Take 10 mg Univers n 10 mg 6-24 by mouth ity of tablet 13:17: at [place] [address] bedtime. Medical Branch allopurinoL 2020-0 Yes 100mg Take 100 U nivers 100 mg 6-24 mg by ity of tablet 13:17: mouth [place] 52 daily. Medical Branch atorvastati 2020-0 Yes 10mg Take 10 mg Univers n 10 mg 6-24 by mouth ity of tablet 13:17: at [place] 52 bedtime. Medical Branch allopurinoL 2020-0 Yes 100mg Take 100 U nivers 100 mg 6-24 mg by ity of tablet 13:17: mouth [place] 52 daily. Medical Branch atorvastati 2020-0 Yes 10mg Take 10 mg Univers n 10 mg 6-24 by mouth ity of tablet 13:17: at [place] [address] bedtime. Medical Branch allopurinoL 2020-0 Yes 100mg Take 100 U nivers 100 mg 6-24 mg by ity of tablet 13:17: mouth [place] 52 daily. Medical Branch atorvastati 2020-0 Yes 10mg Take 10 mg Univers n 10 mg 6-24 by mouth ity of tablet 13:17: at [place] [address] bedtime. Medical Branch allopurinoL 2020-0 Yes 100mg Take 100 U nivers 100 mg 6-24 mg by ity of tablet 13:17: mouth [place] 52 daily. Medical Branch atorvastati 2020-0 Yes 10mg Take 10 mg Univers n 10 mg 6-24 by mouth ity of tablet 13:17: at [place] [address] bedtime. Medical Branch allopurinoL 2020-0 Yes 100mg Take 100 U nivers 100 mg 6-24 mg by ity of tablet 13:17: mouth [place] 52 daily. Medical Branch atorvastati 2020-0 Yes 10mg Take 10 mg Univers n 10 mg 6-24 by mouth ity of tablet 13:17: at [place] [address] bedtime. Medical Branch allopurinoL 2020-0 Yes 100mg Take 100 U nivers 100 mg 6-24 mg by ity of tablet 13:17: mouth [place] 52 daily. Medical Branch atorvastati 2020-0 Yes 10mg Take 10 mg Univers n 10 mg 6-24 by mouth ity of tablet 13:17: at [place] [address] bedtime. Medical Branch allopurinoL 2020-0 Yes 100mg Take 100 U nivers 100 mg 6-24 mg by ity of tablet 13:17: mouth [place] 52 daily. Medical Branch atorvastati 2020-0 Yes 10mg Take 10 mg Univers n 10 mg 6-24 by mouth ity of tablet 13:17: at [place] [address] bedtime. Medical Branch allopurinoL 2020-0 Yes 100mg Take 100 U nivers 100 mg 6-24 mg by ity of tablet 13:17: mouth [place] 52 daily. Medical Branch atorvastati 2020-0 Yes 10mg Take 10 mg Univers n 10 mg 6-24 by mouth ity of tablet 13:17: at [place] [address] bedtime. Medical Branch allopurinoL 2020-0 Yes 100mg Take 100 U nivers 100 mg 6-24 mg by ity of tablet 13:17: mouth [place] 52 daily. Medical Branch atorvastati 2020-0 Yes 10mg Take 10 mg Univers n 10 mg 6-24 by mouth ity of tablet 13:17: at [place] [address] bedtime. Medical Branch propranolol 2020-0 Yes 80mg Take 80 mg Univers 80 mg 6-24 by mouth 2 ity of tablet 13:12: (two) [place] 38 times Medical daily. Branch propranolol 2020-0 Yes 80mg Take 80 mg Univers 80 mg 6-24 by mouth 2 ity of tablet 13:12: (two) [place] 38 times Medical daily. Branch propranolol 2020-0 Yes 80mg Take 80 mg Univers 80 mg 6-24 by mouth 2 ity of tablet 13:12: (two) [place] 38 times Medical daily. Branch propranolol 2020-0 Yes 80mg Take 80 mg Univers 80 mg 6-24 by mouth 2 ity of tablet 13:12: (two) [place] 38 times Medical daily. Branch propranolol 2020-0 [...] mouth 2 ity of tablet 13:12: (two) [place] 38 times Medical daily. Branch propranolol 2020-0 Yes 80mg Take 80 mg Univers 80 mg 6-24 by mouth 2 ity of tablet 13:12: (two) [place] 38 times Medical daily. Branch propranolol 2020-0 Yes 80mg Take 80 mg Univers 80 mg 6-24 by mouth 2 ity of tablet 13:12: (two) [place] 38 times Medical daily. Branch propranolol 2020-0 Yes 80mg Take 80 mg Univers 80 mg 6-24 by mouth 2 ity of tablet 13:12: (two) [place] 38 times Medical daily. Branch Vital Signs Vital Name Observation Time Observation Value Comments Source Systolic blood 2022-07-26 13:22:00 135 mm[Hg] Univer sity of [facility] Diastolic blood 2022-07-26 13:22:00 78 mm[Hg] Unive rsity of [facility] Heart rate 2022-07-26 13:22:00 85 /min Universi ty of [facility] Respiratory rate 2022-07-26 13:22:00 18 /min Univ ersity of [facility] Body height 2022-07-26 13:22:00 167.6 cm Universi ty of [facility] Body weight 2022-07-26 13:22:00 97.523 kg Universi ty of [facility] BMI 2022-07-26 13:22:00 34.70 kg/m2 Universi ty of [facility] Branch Systolic blood 2022-02-15 14:59:00 131 mm[Hg] Univer sity of [facility] Diastolic blood 2022-02-15 14:59:00 70 mm[Hg] Unive rsity of [facility] Heart rate 2022-02-15 14:59:00 81 /min [facility]i ty [facility] [place] [facility] Respiratory rate 2022-02-15 14:59:00 18 /min Univ ersity of [facility] Body height 2022-02-15 14:59:00 167.6 cm Universi ty of [place] [facility] [place] Body weight 2022-02-15 14:59:00 102.967 kg Universi ty of [facility] BMI 2022-02-15 14:59:00 36.64 kg/m2 Universi ty of [place] [facility] Respiratory rate 2022-01-11 17:11:00 18 /min Univ ers[facility] [place] [facility] Body height 2022-01-11 17:11:00 167.6 cm Universi ty [facility] [place] [facility] Body weight 2022-01-11 17:11:00 100.699 kg Universi ty [facility] [place] [facility] BMI 2022-01-11 17:11:00 35.83 kg/m2 [facility]i ty [facility] [place] [facility] Systolic blood 2021-08-24 14:24:00 133 mm[Hg] Univer sity of pressure [place] [facility] Diastolic blood 2021-08-24 14:24:00 73 mm[Hg] Unive rsity of pressure [place] [facility] Heart rate 2021-08-24 14:24:00 69 /min Universi ty [facility] [place] [facility] Respiratory rate 2021-08-24 14:24:00 18 /min Univ ers[facility] [place] [facility] Body height 2021-08-24 14:24:00 167.6 cm [facility]i ty [facility] [place] [facility] Body weight 2021-08-24 14:24:00 100.245 kg [facility]i ty [facility] [place] [facility] BMI 2021-08-24 14:24:00 35.67 kg/m2 [facility] [place] [facility] Oxygen saturation in 2021-06-07 15:30:00 96 /min [place] [facility] Arterial blood by [facility] Pulse oximetry Branch Body temperature 2021-06-07 14:20:30 37.44 Verna [facility] ersity of [facility] Procedures Procedure Date / Time Performed Performing Clinician Jael ALEJANDRO 2022-07-26 14:49:00 Angela Sage [facility] Medical Branch [facility] PATIENT 2022-07-26 13:16:12 Doctor Unassigned, No Univer [facility]ity of [place] FINANCIAL POLICY Name Medical Branch [facility] PATIENT 2022-07-26 13:16:12 Doctor Unassigned, No Univer [facility]ity of [place] FINANCIAL POLICY Name Medical Branch EXTERNAL PROVIDER 2022-04-08 06:01:00 Doctor Unassigned, No Univ ers[facility] of [place] RECORDS Name Medical Branch EXTERNAL PROVIDER 2022-04-08 06:01:00 Doctor Unassigned, No Univ [facility] [place] RECORDS Name Medical Branch EXTERNAL PROVIDER 2022-02-21 06:01:00 Doctor Unassigned, No Univ [facility] [place] RECORDS Name Medical Branch EXTERNAL PROVIDER 2022-02-21 06:01:00 Doctor Unassigned, No Univ [facility] [place] RECORDS Name Medical Branch LITHIUM 2022-02-15 15:58:00 Angela Sage [facility] CONSENT/REFUSAL FOR 2022-01-11 17:10:16 Doctor Unassigned, No Un [facility] [place] DIAGNOSIS AND Name Medical Branch TREATMENT CONSENT/REFUSAL FOR 2022-01-11 17:10:16 Doctor Unassigned, No Un [facility] [place] DIAGNOSIS AND Name Medical Branch TREATMENT Encounters Start End Encounter Admission Attending Care Care Encounter Source Date/Time Date/Time Type Type Clinicians Facility Department ID 2020-12-13 Emergency [facility] [id number] Univers 10:09:54 ity of [facility] 2020-12-11 Emergency [facility] [id number] Univers 04:02:45 ity [facility] 2022-10-04 2022-10-04 Outpatient R [facility] [id number] Univers 09:30:00 09:30:00 ity of [facility] 2022-09-06 2022-09-06 Outpatient R UNA HESTER [facility] [id number] Univers 08:45:00 08:45:00 UNA HESTER [facility] 2022-09-06 2022-09-06 Travel 1.2.840.1 1.2.223.954 [id number] Univers 00:00:00 00:00:00 10188.1.1 350.1.13.10 ity of 3.104.2.7 4.[place].7.3.698 [place] .3.202046 084.8 Medica l .8 [place] 2022-07-26 2022-07-26 [employer] Pathology 1.2.840.4 [id number] Univers 11:00:00 11:15:00 Visit Pcp-Lab 06915.1.1 ity of 3.104.2.7 [place] .3.526679 Medica l .8 [place] 2022-07-26 2022-07-26 Outpatient R UNA HESTER [facility] [id number] Univers 08:45:00 09:37:46 UNA HESTER [facility] 2022-07-26 2022-07-26 Orders Doctor 1.2.840.0 [id number] Univers 00:00:00 00:00:00 Only Unassigned, 56619.1.1 ity of [place] 3.104.2.7 [place] .3.468729 Medica l .8 [place] 2022-07-26 2022-07-26 Travel 1.2.840.1 1.2.731.345 [id number] Univers 00:00:00 00:00:00 13731.1.1 350.1.13.10 ity of 3.104.2.7 4.[place].7.3.698 [place] .3.547415 084.8 Medica l .8 [place] 2022-07-24 2022-07-24 Outpatient SFA SFA [id number] Robert 13:24:12 13:24:12 0612 [facility] 2022-06-27 2022-06-27 Outpatient SFA SFA [id number] Robert 13:49:18 13:49:18 0516 [facility] 2022-06-21 2022-06-21 Outpatient SFA SFA [id number] Robert 08:52:50 08:52:50 0510 [facility] 2022-06-15 2022-06-15 Outpatient SFA SFA [id number] Robert 15:23:34 15:23:34 0504 [facility] 2022-05-31 2022-05-31 Outpatient UNA DELGADILLO [facility] [id number] [facility] 08:45:00 08:45:00 UNA HESTER [facility] 2022-05-30 2022-05-30 Outpatient SFA SFA [id number] Robert 11:55:27 11:55:27 041 [facility] 2022-05-23 2022-05-23 Outpatient SFA SFA [id number] Robert 11:17:29 11:17:29 041 [facility] 2022-05-12 2022-05-12 Outpatient SFA SFA [id number] Robert 08:06:11 08:06:11 0331 [facility] 2022-05-11 2022-05-11 Outpatient SFA SFA [id number] Robert 13:45:44 13:45:44 0330 F Viraj 2022-04-08 2022-04-08 Orders Doctor 1.2.840.9 [id number] Univers 00:00:00 00:00:00 Only Unassigned, 94708.1.1 ity of [place] 3.104.2.7 [place] .3.616674 Medica l .8 [place] 2022-02-21 2022-02-21 Orders Doctor 1.2.840.4 [id number] Univers 00:00:00 00:00:00 Only Unassigned, 13286.1.1 ity of [place] 3.104.2.7 [place] .3.451502 Medica l .8 [place] 2022-02-15 2022-02-15 [employer] Pathology 1.2.840.2 [id number] Univers 13:30:00 13:45:00 Visit Pcp-Lab 92206.1.1 ity of 3.104.2.7 [place] .3.890749 Medica l .8 [place] 2022-02-15 2022-02-15 Outpatient R SELF, [facility] [id number] Univers 08:45:00 10:52:26 DERRELL wesley o f [facility] 2022-02-15 2022-02-15 Travel 1.2.840.1 1.2.788.711 [id number] Univers 00:00:00 00:00:00 22035.1.1 350.1.13.10 ity of 3.104.2.7 4.[place].7.3.698 [place] .3.488200 084.8 Medica l .8 [place] 2022-01-11 2022-01-11 Outpatient R UNA HESTER [facility] [id number] Univers 11:00:00 12:39:46 UNA HESTER ity of [facility] 2022-01-11 2022-01-11 Orders Doctor 1.2.840.4 [id number] Univers 00:00:00 00:00:00 Only Unassigned, 90733.1.1 ity of [place] 3.104.2.7 [place] .3.671834 Medica l .8 [place] 2022-01-11 2022-01-11 Travel 1.2.840.1 1.2.925.569 [id number] Univers 00:00:00 00:00:00 66888.1.1 350.1.13.10 ity of 3.104.2.7 4.2.7.3.698 [facility] .3.736642 084.8 Medica l .8 [place] 2021-11-24 2021-11-24 Outpatient R SAAVEDRA, [facility] [id number] Univers 09:30:00 09:30:00 IGOR walters [facility] 2021-11-16 2021-11-16 [facility] [id number] Univers 11:00:00 11:00:00 UNA HESTER [facility] 2021-10-26 2021-10-26 Outpatient R SELF, [facility] [id number] Univers 08:00:00 08:00:00 DERRELL [facility] 2021-10-20 2021-10-20 Outpatient R SAAVEDRA, [facility] [id number] Univers 10:00:00 10:00:00 IGORTOOTIE walters [facility] 2021-10-03 2021-10-03 Outpatient R JENNIFER, [facility] [id number] Univers 14:30:00 14:30:00 REX [facility] 2021-09-21 2021-09-21 Outpatient R SELF, [facility] [id number] Univers 09:30:00 09:30:00 DERRELL walters [facility] 2021-08-24 2021-08-24 Outpatient R SELF, [facility] [id number] Univers 09:30:00 10:41:34 DERRELL walters [facility] 2021-08-24 2021-08-24 Travel 1.2.840.1 1.2.853.236 [id number] Univers 00:00:00 00:00:00 73799.1.1 350.1.13.10 ity of 3.104.2.7 [place].3.698 [place] .3.0077[place] 084.8 Medica l .8 [place] 2021-07-25 2021-07-25 Outpatient R LARISSA, [facility] [id number] Univers 09:00:00 09:00:00 DERRELL walters [facility] 2021-06-22 2021-06-22 [id number] Univers 11:15:00 12:18:05 [facility] 2021-06-22 2021-06-22 Outpatient R KACIE [facility] [id number] Univers 11:15:00 11:15:00 [facility] 2021-06-22 2021-06-22 Travel 1.2.840.1 1.2.160.505 [id number] Univers 00:00:00 00:00:00 50122.1.1 350.1.13.10 ity of 3.104.2.7 4.[place].7.3.698 [place] .3.603798 084.8 Medica l .8 [place] 2021-06-20 2021-06-20 Outpatient R LARISSA, [facility] [id number] Univers 11:15:00 11:15:00 DERRELL walters [facility] 2021-06-20 2021-06-20 Outpatient R LARISSA, [facility] [id number] Univers 11:15:00 11:15:00 DERRELL walters [facility] 2021-06-08 2021-06-08 Outpatient R HILARY MOORE [facility] [id number] Univers 09:20:00 09:20:00 TERESAROBELRACHELE [facility] 2021-06-08 2021-06-08 Patient Saavedra, 1.2.840.9 [id number] Univers 00:00:00 00:00:00 Secure Msg Igor 63822.1.1 ity of [place] 3.104.2.7 [place] .3.926699 Medica l .8 Branch 2021-06-07 2021-06-07 Emergency X [place], [facility] ERT [id number] Univers 09:13:00 10:50:00 LULY bricedl of [facility] 2021-06-07 2021-06-07 [facility] 1.2.341.393 [id number] Univers 09:13:00 10:50:00 Luly [place] 350.1.13.10 i ty [facility] 4.2.7.2.686 [facility] [id number] [facility] 084 [place] 2021-06-07 2021-06-07 Emergency Ny, 1.2.840.6 [id number] Univers 09:13:00 10:50:00 Luly 45050.1.1 ity of 3.104.2.7 [place] .3.769781 Medica l .8 [place] 2021-06-07 2021-06-07 Outpatient R QUENTIN, [facility] [id number] Univers 00:00:00 00:00:00 IGOR wesley o f [facility] 2021-06-07 2021-06-07 Orders Doctor MOO 1.2.840.114 [id number] Univers 00:00:00 00:00:00 Only Unassigned, QUITA 350.1.13.10 ity of [place] [facility] 4.2.7.2.686 [facility] [id number] [facility] 009 [place] 2021-06-07 2021-06-07 Travel 1.2.840.1 1.2.406.427 [id number] Univers 00:00:00 00:00:00 87884.1.1 350.1.13.10 ity of 3.104.2.7 4.[place].7.3.698 [place] .3.566814 084.8 Medica l .8 [place] 2021-06-07 2021-06-07 Orders Doctor 1.2.840.2 [id number] Univers 00:00:00 00:00:00 Only Unassigned, 74774.1.1 ity of [place] 3.104.2.7 [place] .3.802273 Medica l .8 [place] 2021-06-03 2021-06-03 Travel 1.2.840.1 1.2.152.655 [id number] Univers 00:00:00 00:00:00 35859.1.1 350.1.13.10 ity of 3.104.2.7 4.2.7.3.698 [place] .3.048713 084.8 Medica l .8 [place] 2021-05-27 2021-05-27 Outpatient R SAAVEDRA, [facility] [id number] Univers 00:00:00 00:00:00 IGOR wesley o f [facility] 2021-05-27 2021-05-27 Outpatient [facility] [id number] Univers 00:00:00 00:00:00 IGOR wesley o f [facility] 2021-05-25 2021-05-25 Patient Doctor 1.2.840.6 [id number] Univers 00:00:00 00:00:00 Secure Msg Unassigned, 68070.1.1 ity of [place] 3.104.2.7 [place] .3.943961 Medica l .8 [place] 2021-05-25 2021-05-25 Patient Doctor 1.2.840.8 [id number] Univers 00:00:00 00:00:00 Secure Msg Unassigned, 74454.1.1 ity of [place] 3.104.2.7 [place] .3.462399 Medica l .8 [place] 2021-05-20 2021-05-20 Telephone Jones 1.2.840.6 [id number] Univers 00:00:00 00:00:00 Best, 56478.1.1 ity of [place] 3.104.2.7 [place] .3.603332 Medica l .8 [place] 2021-05-20 2021-05-20 Telephone Jones 1.2.840.3 [id number] Univers 00:00:00 00:00:00 Best, 84195.1.1 ity of [place] 3.104.2.7 [place] .3.504392 Medica l .8 Branch 2021-05-18 2021-05-18 Travel 1.2.840.1 1.2.688.990 [id number] Univers 00:00:00 00:00:00 08323.1.1 350.1.13.10 ity of 3.104.2.7 4.2.7.3.698 [place] .3.502937 084.8 Medica l .8 Branch 2021-05-18 2021-05-18 Travel 1.2.840.1 1.2.570.681 [id number] Univers 00:00:00 00:00:00 11396.1.1 350.1.13.10 ity of 3.104.2.7 4.2.7.3.698 [place] .3.830332 084.8 Medica l .8 Branch 2021-05-17 2021-05-17 [employer] Pcp-Lab [facility] 1.2.840.114 [id number] Univers 13:15:00 13:30:00 Visit Igor Saavedra PRIMARY 350.1.13.1 0 ity of CARE 4.2.7.2.686 Sujey BROWNLEE [id number] Or dical 366 [place] 2021-05-17 2021-05-17 [employer] Igor Saavedra 1.2.840.1 1 [id number] Univers 13:15:00 13:30:00 Visit Pcp-Lab 07714.1.1 ity of 3.104.2.7 [place] .3.228752 Medica l .8 Branch 2021-05-17 2021-05-17 [employer] Igor Saavedra 1.2.840.1 1 [id number] Univers 13:15:00 13:30:00 Visit Pcp-Lab 25349.1.1 ity of 3.104.2.7 [place] .3.957763 Medica l .8 Branch 2021-05-17 2021-05-17 Outpatient R QUENTIN [facility] [id number] Univers 09:00:00 10:25:05 IGOR martinez [facility] 2021-05-17 2021-05-17 Office Igor Saavedra [place] 1.2.840.1 [id number] Univers 09:00:00 10:25:05 Visit Deonte Joel 82189.1.1 ity of 3.104.2.7 [place] .3.648487 Medica l .8 [place] 2021-05-17 2021-05-17 Outpatient R QUENTIN [facility] [id number] Univers 09:00:00 10:25:05 IGOR walters [facility] 2021-05-17 2021-05-17 Outpatient R SAAVEDRA [facility] [id number] Univers 09:30:00 09:30:00 IGOR martinez [facility] 2021-05-17 2021-05-17 Travel 1.2.840.1 1.2.367.980 [id number] Univers 00:00:00 00:00:00 95022.1.1 350.1.13.10 ity of 3.104.2.7 4.2.7.3.698 [place] .3.861523 084.8 Medica l .8 [place] 2021-05-17 2021-05-17 Travel 1.2.840.1 1.2.478.885 [id number] Univers 00:00:00 00:00:00 22908.1.1 350.1.13.10 ity of 3.104.2.7 4.2.7.3.698 [place] .3.495369 084.8 Medica l .8 [place] 2021-04-26 2021-04-26 Outpatient R [facility] [id number] Univers 09:00:00 09:00:00 ity of [facility] 2021-04-26 2021-04-26 Outpatient R WENDY [facility] [id number] Univers 09:00:00 09:00:00 ATTENDING ity [facility] 2021-04-20 2021-04-20 Outpatient R UNA HESTER [facility] [id number] Univers 08:45:00 08:45:00 UNA HESTER ity [facility] 2021-04-11 2021-04-11 Outpatient SALLY FIGUEROA [facility] [id number] Univers 08:40:00 08:40:00 SALLY MITCHELL [facility] 2021-04-11 2021-04-11 Outpatient SALLY FIGUEROA [facility] [id number] Univers 08:40:00 08:40:00 SALYL MITCHELL [facility] 2021-03-21 2021-03-21 Outpatient SALLY FIGUEROA [facility] [id number] Univers 08:00:00 08:00:00 SALLY MITCHELL [facility] 2021-03-17 2021-03-17 Patient Doctor 1.2.840.0 [id number] Univers 00:00:00 00:00:00 Secure Msg Unassigned, 34851.1.1 ity of [place] 3.104.2.7 [place] .3.479628 Medica l .8 [place] 2021-03-17 2021-03-17 Patient Doctor 1.2.840.1 [id number] Univers 00:00:00 00:00:00 Secure Msg Unassigned, 06534.1.1 ity of [place] 3.104.2.7 [place] .3.991893 Medica l .8 [place] 2021-03-17 2021-03-17 Patient Doctor 1.2.840.5 [id number] Univers 00:00:00 00:00:00 Secure Msg Unassigned, 68439.1.1 ity of [place] 3.104.2.7 [place] .3.389779 Medica l .8 [place] 2021-03-16 2021-03-16 [employer] Operator [place] 1.2.840.1 [id number] Univers 13:15:00 13:30:00 Visit Pcp-Lab 04008.1.1 ity of 3.104.2.7 [place] .3.260252 Medica l .8 [place] 2021-03-16 2021-03-16 [employer] Operator [place] 1.2.840.1 [id number] Univers 13:15:00 13:30:00 Visit Pcp-Lab 61060.1.1 ity of 3.104.2.7 [place] .3.120153 Medica l .8 [place] 2021-03-16 2021-03-16 Outpatient Tonya LOCKWOOD [facility] [id number] Univers 13:15:00 13:15:00 JORDONMOUNA dl [facility] 2021-03-16 2021-03-16 Outpatient Tonya SUEKACIESUKHJINDERUNA [facility] [id number] Univers 12:00:00 12:09:51 KACIEUNA MCNEIL dl [facility] 2021-03-16 2021-03-16 Outpatient Tonya HESTER [facility] [id number] Univers 12:00:00 12:09:51 UNA HESTER [facility] 2021-03-16 2021-03-16 Outpatient Tonya [facility] [id number] Univers 12:00:00 12:00:00 UNA HESTER dl [facility] 2021-03-16 2021-03-16 Travel 1.2.840.1 1.2.875.603 [id number] Univers 00:00:00 00:00:00 88132.1.1 350.1.13.10 ity of 3.104.2.[place] 4.[place] .3.573934 084.8 Medica l .8 [place] 2021-03-16 2021-03-16 Travel 1.2.840.1 1.2.893.520 [id number] Univers 00:00:00 00:00:00 99806.1.1 350.1.13.10 it[place] of 3.104.2.[place] .3.376061 084.8 Medica l .8 [place] 2021-03-11 2021-03-11 Emergency X GEETA [facility] ERT [id number] Univers 09:44:00 13:06:00 HALIMA wesley [facility] 2021-03-11 2021-03-11 Emergency Hema Connor2.840.0 [id number] Univers 09:44:00 13:06:00 Halima Cates 77864.1.1 ity of 3.104.2.7 [place] .3.195293 Medica l .8 [place] 2021-03-11 2021-03-11 [facility] [id number] Univers 09:44:00 13:06:00 HALIMA ity [facility] 2021-03-11 2021-03-11 Emergency Geeta, 1.2.840.6 [id number] Univers 09:44:00 13:06:00 Halima Cates 48053.1.1 ity of 3.104.2.7 [place] .3.203184 Medica l .8 [place] 2021-03-11 2021-03-11 Emergency [facility] E[facility] [id number] Univers 09:44:00 13:06:00 [facility] 2021-03-11 Emergency [facility] E[facility] [id number] Univers 09:44:00 09:44:00 HALIMA ity [facility] 2021-03-11 2021-03-11 Travel 1.2.840.1 1.2.791.258 [id number] Univers 00:00:00 00:00:00 76932.1.1 350.1.13.10 ity of 3.104.2.7 4.[place]7.3.698 [place] .3.747910 084.8 Medica l .8 [place] 2021-03-11 2021-03-11 Travel 1.2.840.1 1.2.551.828 [id number] Univers 00:00:00 00:00:00 01436.1.1 350.1.13.10 ity of 3.104.2.7 [place].698 [place] .3.406234 084.8 Medica l .8 [place] 2021-03-08 2021-03-08 [employer] Operator Raleigh Lockwood 1.2.840.1 [id number] Univers 15:00:00 15:15:00 Visit Pcp-Lab 76210.1.1 ity of 3.104.2.7 [place] .3.068640 Medica l .8 [place] 2021-03-08 2021-03-08 [employer] Fabián Raleigh Solomon 1.2.840.1 1020 [id number] Univers 15:00:00 15:15:00 Visit Pcp-Lab 95875.1.1 ity of 3.104.2.7 [place] .3.374019 Medica l .8 [place] 2021-03-08 2021-03-08 Outpatient R FABIÁN, [facility] [id number] Univers 15:00:00 15:00:00 RALEIGH wesley [facility] 2021-01-31 2021-01-31 Outpatient R SELF, [facility] [id number] Univers 10:15:00 10:55:06 DERRELL walters [facility] 2020-12-29 2020-12-29 Outpatient R SELF, [facility] [id number] Univers 08:00:00 08:41:00 DERRELL walters [facility] 2020-12-29 2020-12-29 Outpatient R SELF, [facility] [id number] Univers 08:00:00 08:41:00 DERRELL wesley [facility] 2020-12-29 2020-12-29 Travel 1.2.840.1 1.2.442.133 [id number] Univers 00:00:00 00:00:00 47894.1.1 350.1.13.10 ity of 3.104.2.7 4.[place].3.698 [place] .3.298542 084.8 Medica l .8 [place] 2020-12-29 2020-12-29 Travel 1.2.840.1 1.2.187.907 [id number] Univers 00:00:00 00:00:00 31001.1.1 350.1.13.10 ity of 3.104.2.7 4.[place].3.698 [place] .3.431931 084.8 Medica l .8 [place] 2020-12-22 2020-12-22 Outpatient R SELF, [facility] [id number] Univers 09:30:00 09:30:00 DERRELL martinez [facility] 2020-12-22 2020-12-22 Outpatient R LARISSA, [facility] [id number] Univers 09:30:00 09:30:00 DERRELL martinez [facility] 2020-11-10 2020-11-10 Outpatient R SHE, [facility] [id number] Univers 09:30:00 09:30:00 ROBERT wesley [facility] 2020-11-10 2020-11-10 Orders Doctor 1.2.840.0 [id number] Univers 00:00:00 00:00:00 Only Unassigned, 58008.1.1 ity of [place] 3.104.2.7 [place] .3.623263 Medica l .8 [place] 2020-11-10 2020-11-10 Travel 1.2.840.1 1.2.189.375 [id number] Univers 00:00:00 00:00:00 45080.1.1 350.1.13.10 ity of 3.104.2.7 4.[place]7.3.698 [place] .3.415965 084.8 Medica l .8 [place] 2020-10-11 2020-10-11 Outpatient R SELF, [facility] [id number] Univers 08:00:00 08:00:00 DERRELL martinez [facility] 2020-10-11 2020-10-11 Travel 1.2.840.1 1.2.198.890 [id number] Univers 00:00:00 00:00:00 35689.1.1 350.1.13.10 ity of 3.104.2.7 4.[place]7.3.698 [place] .3.612387 084.8 Medica l .8 [place] 2020-09-13 2020-09-13 Outpatient R SELF, [facility] [id number] Univers 08:00:00 08:00:00 DERRELL martinez [facility] 2020-09-13 2020-09-13 Travel 1.2.840.1 1.2.935.498 [id number] Univers 00:00:00 00:00:00 94220.1.1 350.1.13.10 ity of 3.104.2.7 4.[place].7.3.698 [place] .3.905781 084.8 Medica l .8 [place] 2020-09-02 2020-09-02 Emergency Rose, [facility] 1.2.840.114 [id number] 16:12:00 20:21:00 [facility] 350.1.13.10 [place] 4.2.7.2.686 [place] [id number] 2020-09-02 2020-09-02 Emergency Rose, 1.2.840.4 [id number] [facility] 16:12:00 20:21:00 Patti 93482.1.1 ity of 3.104.2.7 [place] .3.733217 Medica l .8 [place] 2020-09-02 2020-09-02 Orders Doctor MOO 1.2.840.114 [id number] 00:00:00 00:00:00 Only Unassigned, QUITA 350.1.13.10 [place] [facility] 4.2.7.2.686 [id number] [id number] 2020-09-02 2020-09-02 Travel 1.2.840.1 1.2.255.081 [id number] Univers 00:00:00 00:00:00 20574.1.1 350.1.13.10 ity of 3.104.2.7 4.[place].3.698 [place] .3.748306 084.8 Medica l .8 [place] 2020-09-02 2020-09-02 Orders Doctor 1.2.840.2 [id number] Univers 00:00:00 00:00:00 Only Unassigned, 82531.1.1 ity of [place] 3.104.2.7 [place] .3.282578 Medica l .8 [place] 2020-08-25 2020-08-25 Outpatient R [facility] [id number] Univers 09:15:00 09:15:00 ity of [facility] 2020-08-09 2020-08-09 Outpatient R SELF, [facility] [id number] Univers 08:45:00 08:45:00 DERRELL martinez [facility] 2020-06-28 2020-06-28 Outpatient R FABIÁN, [facility] [id number] Univers 13:45:00 13:45:00 RALEIGH [facility] 2020-06-21 2020-06-21 Outpatient R SELF, [facility] [id number] Univers 15:15:00 15:15:00 DERRELL martinez [facility] 2020-06-07 2020-06-07 Outpatient R SELF, [facility] [id number] Univers 08:45:00 08:45:00 DERRELL walters [facility] 2020-05-25 2020-05-25 Outpatient R MICHELLE, [facility] [id number] Univers 08:30:00 08:30:00 CRISTO [facility] 2020-03-15 2020-03-15 Outpatient R FABIÁN, [facility] [id number] Univers 13:00:00 13:00:00 RALEIGH [facility] 2020-03-08 2020-03-08 Outpatient R SELF, [facility] [id number] Univers 13:00:00 13:00:00 DERRELL martinez [facility] 2020-02-16 2020-02-16 Outpatient R SELF, [facility] [id number] Univers 11:00:00 11:00:00 DERRELL martinez [facility] 2020-01-27 2020-01-27 Outpatient R SELF, [facility] [id number] Univers 11:45:00 11:45:00 DERRELL martinez [facility] 2020-01-19 2020-01-19 Outpatient R SELF, [facility] [id number] Univers 08:00:00 08:00:00 DERRELL walters [facility] 2019-12-22 2019-12-22 Outpatient R SELF, [facility] [id number] Univers 08:45:00 08:45:00 DERRELL walters [facility] 2019-12-05 2019-12-05 Outpatient R ALEISHA, [facility] [id number] Univers 10:45:00 10:45:00 PRISCA [facility] 2019-10-23 2019-10-23 Outpatient R DELGADO, [facility] [id number] Univers 09:15:00 09:15:00 KATH [facility] 2019-10-15 2019-10-15 Outpatient R SHE, [facility] [id number] Univers 11:30:00 11:30:00 ROBERT [facility] 2019-10-01 2019-10-01 Outpatient R SHE, [facility] [id number] Univers 14:30:00 14:30:[facility]-09[facility]01 2019-09-01 Outpatient R LARISSA, [facility] [id number] Univers 08:45:00 08:45:00 DERRELL lupillo o f [facility] 2019-08-06 2019-08-06 Outpatient Tonya RAUSCH, [facility] [id number] Univers 13:00:00 13:00:00 ANGELA [facility] Results Test Description Test Time Test Comments Results Result Comments Source LITHIUM 2022-07-26 17:27:33 Test Item Value Reference Range Interpretation Comme nts [place] (test code = 9172481838) 0.3 mmol/L 0.6-1.2 L ZAINAB (test code = ZAINAB) Toxic Range: ? Greater than 1.2 mmol/L Lab Interpretation (test code = 82635-5) Abnormal [facility]2023-06-14 17:27:33 Test Item Value Reference Range Interpretation Comments [place] (test code = 0.3 mmol/L 0.6-1.2 L 4035345964) ZAINAB (test code = ZAINAB) Toxic Range: ? Greater than 1.2 mmol/L Lab Interpretation (test Abnormal code = 68325-2) [facility]2023-06-14 17:27:33 Test Item Value Reference Range Interpretation Comments [place] (test code = 0.3 mmol/L 0.6-1.2 L 6569657020) ZAINAB (test code = ZAINAB) Toxic Range: ? Greater than 1.2 mmol/L Lab Interpretation (test Abnormal code = 30349-5) [facility]2023-06-14 17:27:33 Test Item Value Reference Range Interpretation Comments [place] (test code = 0.3 mmol/L 0.6-1.2 L 0423419626) ZAINAB (test code = ZAINAB) Toxic Range: ? Greater than 1.2 mmol/L Lab Interpretation (test Abnormal code = 97738-0) [place] [address]-06-14 17:27:33 Test Item Value Reference Range Interpretation Comments [place] (test code = 0.3 mmol/L 0.6-1.2 L 6327955972) ZAINAB (test code = ZAINAB) Toxic Range: ? Greater than 1.2 mmol/L Lab Interpretation (test Abnormal code = 69303-8) [address]06-14 17:27:33 Test Item Value Reference Range Interpretation Comments [place] (test code = 0.3 mmol/L 0.6-1.2 L 1751089553) ZAINAB (test code = ZAINAB) Toxic Range: ? Greater than 1.2 mmol/L Lab Interpretation (test Abnormal code = 02589-0) [facility]2023-06-14 17:27:33 Test Item Value Reference Range Interpretation Comments [place] (test code = 0.3 mmol/L 0.6-1.2 L 1505801166) ZAINAB (test code = ZAINAB) Toxic Range: ? Greater than 1.2 mmol/L Lab Interpretation (test Abnormal code = 50099-0) [facility]2023-01-04 20:05:22 Test Item Value Reference Range Interpretation Comments [place] (test code = 1.1 mmol/L 0.6-1.2 2125490999) ZAINAB (test code = ZAINAB) Toxic Range: ? Greater than 1.2 mmol/L Lab Interpretation (test Normal code = 03952-2) [place] [address]-01-04 20:05:22 Test Item Value Reference Range Interpretation Comments [place] (test code = 1.1 mmol/L 0.6-1.2 6373638207) ZAINAB (test code = ZAINAB) Toxic Range: ? Greater than 1.2 mmol/L Lab Interpretation (test Normal code = 22849-3) [facility]2023-01-04 20:05:22 Test Item Value Reference Range Interpretation Comments [place] (test code = 1.1 mmol/L 0.6-1.2 7426997248) ZAINAB (test code = ZAINAB) Toxic Range: ? Greater than 1.2 mmol/L Lab Interpretation (test Normal code = 64150-1) [facility]2023-01-04 20:05:22 Test Item Value Reference Range Interpretation Comments [place] (test code = 1.1 mmol/L 0.6-1.2 7429345532) ZAINAB (test code = ZAINAB) Toxic Range: ? Greater than 1.2 mmol/L Lab Interpretation (test Normal code = 37117-9) [facility]2023-01-04 20:05:22 Test Item Value Reference Range Interpretation Comments [place] (test code = 1.1 mmol/L 0.6-1.2 0179040080) ZAINAB (test code = ZAINAB) Toxic Range: ? Greater than 1.2 mmol/L Lab Interpretation (test Normal code = 42675-2) [facility]2023-01-04 20:05:22 Test Item Value Reference Range Interpretation Comments [place] (test code = 1.1 mmol/L 0.6-1.2 3425612967) ZAINAB (test code = ZAINAB) Toxic Range: ? Greater than 1.2 mmol/L Lab Interpretation (test Normal code = 05116-8) [facility]2023-01-04 20:05:22 Test Item Value Reference Range Interpretation Comments [place] (test code = 1.1 mmol/L 0.6-1.2 0505316342) ZAINAB (test code = ZAINAB) Toxic Range: ? Greater than 1.2 mmol/L Lab Interpretation (test Normal code = 33068-7) [facility]2023-01-04 20:05:22 Test Item Value Reference Range Interpretation Comments [place] (test code = 1.1 mmol/L 0.6-1.2 4863300409) ZAINAB (test code = ZAINAB) Toxic Range: ? Greater than 1.2 mmol/L Lab Interpretation (test Normal code = 51918-5) [facility]2023-01-04 20:05:22 Test Item Value Reference Range Interpretation Comments [place] (test code = 1.1 mmol/L 0.6-1.2 9244328400) ZAINAB (test code = ZAINAB) Toxic Range: ? Greater than 1.2 mmol/L Lab Interpretation (test Normal code = 26832-9) [facility]2023-01-04 20:05:22 Test Item Value Reference Range Interpretation Comments [place] (test code = 1.1 mmol/L 0.6-1.2 0247179269) ZAINAB (test code = ZAINAB) Toxic Range: ? Greater than 1.2 mmol/L Lab Interpretation (test Normal code = 30869-1) [facility]2018-07-20 07:27:00 Test [...] LDL) mg/dLNEAR OPTIMAL/ABOVE OPTIMAL........ .100-12 9 mg/dL BORDER LINE HIGH.........13 0-159 mg/dL HIGH.........16 0-189 mg/dL VERY HIGH.........>/ = 190 mg/dL Comments to [employer]: ADD TO AM LABSLIPID PROFILE (CORONARY RISK)2018-07-20 [...] MG/DL 0-99 code = LDL) Comments to [employer]: ADD TO AM LABSPROTHROMBIN [id number] 06:24:00 Test Item Value Reference Range Interpretation [...] dial infarction. 2. 0 - 3.0 3. 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 3.0 - 4.5 Comments to [employer]: NURSE WILL BRING SPECIMEN TO LABPTT ACTIVATED 2018-07-20 06:24:00 Test Item Value Reference Range Interpretation Comments PTT ACTIVATED (test code = APTT) 29.3 SECONDS 22.0-33.0 N Comments to [employer]: NURSE WILL BRING SPECIMEN TO LABBASIC METABOLIC [...] 9.6 MG/DL 8.4-10.2 N CA) Comments to [employer]: NURSE WILL BRING SPECIMEN TO LAB Comments to [employer]: NURSE WILL BRING SPECIMEN TO [id number] 06:13:00 Test Item Value Reference Range Interpretation Comments MAGNESIUM (test code = MAG) 2.2 MG/DL 1.6-2.3 N Comments to [employer]: NURSE WILL BRING SPECIMEN TO LAB Comments to [employer]: NURSE WILL BRING SPECIMEN TO LABCBC W/AUTO [id number] 06:02:00 Test Item Value Reference Range Interpretation [...] Notes Date/Time Note Provider Source 2018-07-20 06:55:00-00:00 [id number] [place] [address] PATIENT NAME: UDAY SCHULER ADMIT DATE: 07/20/18 ACCOUNT NO: [id number] ROOM NO: AGE: 43 REPORT TYPE: CARDIAC CATHETERIZATION REPORT SEX: F ADMITTING PHYSICIAN: ATTENDING PHYSICIAN:Rosa Harper MD PROCEDURE DATE: 07/20/2018 PERL PROGRAMMER: Rosa Harper MD TITLE OF THE PROCEDURE: [...] emoral artery area for local anesthesia. A 6-Faroese sheath was placed in the right common [...] aortic valve gradient. The right groin was aida d using Vascade. Before that, selective bilateral renal [...] on medical therapy PATIENT NAME: UDAY SCHULER ACCOUNT #: Z [id number] and risk factor modification. Dictated By: Rosa Harper MD WT: CATH:ADRIANA/KIAN/RIGOBERTO Conf#: [id number]/DID#: [id number] Authenticated by Rosa Harper MD On 09/2018 08:15:22 AM at 0815 PATIENT NAME: UDAY SCHULER ACCOUNT #: [id number] 2018-07-20 06:06:00-00:00 [id number] [place] [address] PATIENT NAME: UDAY SCHULER ADMIT DATE: 07/20/18 ACCOUNT NO: [id number] ROOM NO: AGE: 43 REPORT TYPE: ELECTROCARDIOGRAM SEX: F ADMITTING PHYSICIAN: ATTENDING PHYSICIAN:Rosa Harper MD Order: [id number] Test Reason : CAD Test Date/Time Stamp: [...] PATIENT NAME: UDAY SCHULER ACCOUNT #: Z [id number] 2018-07-19 18:55:00-00:00 [id number] [place] [address] PATIENT NAME: UDAY SCHULER ADMIT DATE: 07/20/18 ACCOUNT NO: [id number] ROOM NO: AGE: 43 REPORT TYPE: HISTORY AND PHYSICAL SEX: F ADMITTING PHYSICIAN: ATTENDING PHYSICIAN:Rosa Harper MD ADMISSION DATE: 07/20/2018 PERL PROGRAMMER: Rosa Harper MD REASON FOR ADMISSION: Chest [...] The patient does not smoke or us e street drugs or drinks alcohol. FAMILY HISTORY: [...] temperature afebr ile. PATIENT NAME: UDAY SCHULER ACCOUNT #: [id number] HEENT: Head, atraumatic and normocephalic. Eyes and [...] By: Rosa Harper MD WT: HP:TRAVIS/KIAN/RIGOBERTO Conf#: [id number]/DID#: [id number] Authenticated by Rosa Harper MD On 07/13 07:20:46 AM at 0721 PATIENT NAME: UDAY SCHULER ACCOUNT #: Z [id number]
[2022-09-17] MEDS ORDERED: KETOROLAC 30 MG/ML INJ ONE (11:44)
[2022-09-17] MEDS ORDERED: CYCLOBENZAPRINE 10 MG TAB ONE (11:44)
--- NOTE | 2022-09-17 11:51 | RAD REPORT ---
EXAM DESCRIPTION: [place] Single View09/17/2022 11:36 am CLINICAL HISTORY: Chest pain COMPARISON: July 2022 FINDINGS: The lungs appear clear of acute infiltrate. The heart is normal size IMPRESSION: No acute abnormalities displayed
[2022-09-17 12:09] LABS: Absolute Lymphocytes (CBC) 1.1 K/uL (0.7-4.9); Hematocrit 29.4 % (36.0-45.0); Lymphocytes % 14.9 % (15.3-44.8); MCV 70.9 fL (80-100); MPV 8.6 fL (7.6-11.3); Platelets 330 thou/uL (152-406); RBC Red Blood Cell Count 4.15 M/uL (3.86-4.86)
[2022-09-17 12:13] LABS: Specific Gravity 1.012 (1.005-1.030); Urine Bilirubin NEGATIVE (Negative); Urine Clarity Turbid (Clear); Urine Color Light-Yellow (Yellow); Urine Glucose NEGATIVE (Negative)
[2022-09-17 12:14] LABS: Urine Bacteria None Seen /HPF (<20); Urine Blood Negative (Negative); Urine Protein NEGATIVE (Negative); Urine RBC <5 /HPF (None Seen); Urine Urobilinogen Normal (Normal); Urine pH 7.5 (5.0-7.0)
[2022-09-17 12:15] LABS: Specific Gravity 1.012 (1.005-1.030)
[2022-09-17 12:32] LABS: ALT/SGPT 43 U/L (13-56); AST/SGOT 21 U/L (15-37); Albumin 3.6 g/dL (3.4-5.0); Alkaline Phosphatase 159 U/L (45-117); BUN Blood Urea Nitrogen 6 mg/dL (7-18); Bicarbonate 25 mEq/L (21-32); Bilirubin Total 0.2 mg/dL (0.2-1.0); Glomerular Filtration Rate 103 ml/min (=/>90); Glucose Level 107 mg/dL (74-106); Magnesium 2.3 mg/dL (1.6-2.4); Potassium 3.6 mEq/L (3.5-5.1); Sodium Level 140 mEq/L (136-145); Troponin High Sensitivity 3.3 pg/mL (<58.9)
[2022-09-17 12:33] LABS: Bilirubin Direct < 0.1 mg/dL (0-0.2); Bilirubin Indirect, Calculated ND mg/dL (0.2-0.8)
--- NOTE | 2022-09-17 12:45 | ER ---
Nurse's Notes [facility] Name: Shivani Lagunas Age: 47 yrs Sex: Female : 1975 Arrival Date: 09/17/2022 Time: 10:57 Bed 19 Private MD: Diagnosis: Chest pain, unspecified;Low back pain Presentation: 09/17 11:06 Chief complaint: Patient states: feeling tightness in her chest since yesterday iw afternoon and her left arm goes numb, also I've been having low back pain since this morning , Idont know if it's my anxiety,. I'm on lithium. Coronavirus screen: At this time, the client does not indicate any symptoms associated with coronavirus-19. Ebola Screen: Patient negative for fever greater than or equal to 101.5 degrees Fahrenheit, and additional compatible Ebola Virus Disease symptoms Patient denies exposure to infectious person. Patient denies travel to an Ebola-affected area in the 21 days before illness onset. No symptoms or risks identified at this time. Initial Sepsis Screen: Does the patient meet any 2 criteria? No. Patient's initial sepsis screen is negative. Does the patient have a suspected source of infection? No. Patient's initial sepsis screen is negative. Risk Assessment: Do you want to hurt yourself or someone else? Patient reports no desire to harm self or others. Onset of symptoms was September 16, 2022. 11:06 Method Of Arrival: Ambulatory iw 11:06 Acuity: ALICIA 3 iw Triage Assessment: 11:15 General: Appears in no apparent distress. uncomfortable, Behavior is calm, cooperative, eh3 appropriate for age. Pain: Complains of pain in back. Historical: - Allergies: 11:09 Sulfa (Sulfonamide Antibiotics); iw - PMHx: 11:09 Bipolar disorder; Hypertensive disorder; Schizophrenia; iw - PSHx: 11:09 Cholecystectomy; section; iw - Immunization history:: Adult Immunizations unknown. - Social history:: Smoking status: unknown. Screenin:[address] [facility] ED Fall Risk Assessment (Adult) Score/Fall Risk Level 0 - 2 = Low Risk. Abuse eh3 screen: Denies threats or abuse. Denies injuries from another. Nutritional screening: No deficits noted. Tuberculosis screening: No symptoms or risk factors identified. Assessment: 11:15 General: Appears in no apparent distress. uncomfortable, Behavior is cooperative, eh3 appropriate for age. Pain: Complains of pain in back Pain does not radiate. Pain began 1 day ago. Neuro: Level of Consciousness is awake, alert, obeys commands, Oriented to person, place, time, situation. Cardiovascular: Capillary refill < 3 seconds Patient's skin is warm and dry. Respiratory: Airway is patent Respiratory effort is even, unlabored, Respiratory pattern is regular, symmetrical. GI: Abdomen is round non-distended. Derm: Skin is pink, warm \T\ dry. Musculoskeletal: Circulation, motion, and sensation intact. Vital Signs: 11:06 BP 140 / 78; Pulse 90; Resp 16; Temp 97.3; Pulse Ox 100% on R/A; Weight 94.35 kg; iw Height 5 ft. 6 in. ; Pain 8/10; 12:00 BP 124 / 61; Pulse 83; Resp 15; Pulse Ox 97% on R/A; eh3 13:00 BP 138 / 77; Pulse 82; Resp 20; Pulse Ox 99% on R/A; eh3 11:06 Body Mass Index 33.57 (94.35 kg, 167.64 cm) iw 11:06 Pain Scale: Adult iw ED Course: 10:59 Patient arrived in ED. im 11:03 Jose J Rivera MD is Attending Physician. rt 11:09 Triage completed. iw 11:09 Arm band placed on. iw 11:15 Olivia Chang, RN is Primary Nurse. eh3 11:15 Patient has correct armband on for positive identification. Bed in low position. Call eh3 light in reach. Side rails up X2. Provided Education on: Use of call walls. Client placed on continuous cardiac and pulse oximetry monitoring. NIBP monitoring applied. 11:15 Patient maintains SpO2 saturation greater than 95% on room air. eh3 11:38 XRAY Chest (1 view) In Process Unspecified. EDMS 13:07 No provider procedures requiring assistance completed. IV discontinued, intact, eh3 bleeding controlled, No redness/swelling at site. Pressure dressing applied. Administered Medications: 11:40 Drug: Cyclobenzaprine PO 10 mg Route: PO; eh3 12:40 Follow up: Response: No adverse reaction eh3 11:45 Drug: Ketorolac IVP 15 mg Route: IVP; Site: right antecubital; eh3 12:45 Follow up: Response: No adverse reaction eh3 Medication: 13:00 VIS not applicable for this client. 3 Outcome: 12:44 Discharge ordered by . rt 13:08 Discharged to home ambulatory. 3 13:08 Condition: stable 13:08 Discharge instructions given to patient, Instructed on discharge instructions, follow up and referral plans. medication usage, Demonstrated understanding of instructions, follow-up care, medications, Prescriptions given X 1. 13:13 Patient left the ED. 3 Signatures: Dispatcher [employer] EDMayelin Parks RN RN Olivia Chang RN RN 3 Jose J Rivera MD MD rt Rohini Garcia Corrections: (The following items were deleted from the chart) 21:22 11:15 Pain: Complains of pain in back Pain does not radiate. Pain began 3 hours ago. eh33
--- NOTE | 2022-09-17 12:45 | EDPHYS ---
Physician Documentation [facility] Name: Shivani Lagunas Age: 47 yrs Sex: Female : 1975 Arrival Date: 09/17/2022 Time: 10:57 Bed 19 Private MD: ED Physician Jose J Rivera HPI: 09/17 19:10 This 47 yrs old Female presents to ER via Ambulatory with complaints of Chest rt Pressure, Low Back Pain. 19:10 Patient presents to the ED with chest pressure as well as a back pain starting rt yesterday. Patient has had similar episodes previously. Denies shortness of breath. Denies other acute complaints. Symptoms are moderate severity, no other aggravating or elevating factors.. Historical: - Allergies: 11:09 Sulfa (Sulfonamide Antibiotics); iw - PMHx: 11:09 Bipolar disorder; Hypertensive disorder; Schizophrenia; iw - PSHx: 11:09 Cholecystectomy; section; iw - Immunization history:: Adult Immunizations unknown. - Social history:: Smoking status: unknown. ROS: 19:10 Constitutional: Negative for fever, chills, and weight loss, Respiratory: Negative for rt shortness of breath, cough, wheezing, and pleuritic chest pain, Abdomen/GI: Negative for abdominal pain, nausea, vomiting, diarrhea, and constipation, Skin: Negative for injury, rash, and discoloration, Neuro: Negative for headache, weakness, numbness, tingling, and seizure, Psych: Negative for depression, anxiety, suicide ideation, homicidal ideation, and hallucinations. 19:10 Cardiovascular: Positive for chest pain, Negative for edema. 19:10 Back: Positive for pain at rest, Negative for radiated pain. Exam: 13:05 Constitutional: This is a well developed, well nourished patient who is awake, alert, rt and in no acute distress. Head/Face: Normocephalic, atraumatic. Chest/axilla: Normal chest wall appearance and motion. Nontender with no deformity. No lesions are appreciated. Cardiovascular: Regular rate and rhythm with a normal S1 and S2. No gallops, murmurs, or rubs. Normal PMI, no JVD. No pulse deficits. Respiratory: Lungs have equal breath sounds bilaterally, clear to auscultation and percussion. No rales, rhonchi or wheezes noted. No increased work of breathing, no retractions or nasal flaring. Abdomen/GI: Soft, non-tender, with normal bowel sounds. No distension or tympany. No guarding or rebound. No evidence of tenderness throughout. Skin: Warm, dry with normal turgor. Normal color with no rashes, no lesions, and no evidence of cellulitis. MS/ Extremity: Pulses equal, no cyanosis. Neurovascular intact. Full, normal range of motion. Neuro: Awake and alert, GCS 15, oriented to person, place, time, and situation. Cranial nerves II-XII grossly intact. Motor strength 5/5 in all extremities. Sensory grossly intact. Cerebellar exam normal. Normal gait. Psych: Awake, alert, with orientation to person, place and time. Behavior, mood, and affect are within normal limits. 13:05 ECG was reviewed by the Attending Physician. 13:05 Back: Bilateral paraspinal tenderness, no midline tenderness, no step-off. Vital Signs: 11:06 BP 140 / 78; Pulse 90; Resp 16; Temp 97.3; Pulse Ox 100% on R/A; Weight 94.35 kg; iw Height 5 ft. 6 in. ; Pain 8/10; 12:00 BP 124 / 61; Pulse 83; Resp 15; Pulse Ox 97% on R/A; eh3 13:00 BP 138 / 77; Pulse 82; Resp 20; Pulse Ox 99% on R/A; eh3 11:06 Body Mass Index 33.57 (94.35 kg, 167.64 cm) iw 11:06 Pain Scale: Adult iw MDM: 11:11 Patient medically screened. rt 19:10 Differential diagnosis: Mechanical pain, ACS, aortic dissection, pulmonary embolism. rt Data reviewed: vital signs, nurses notes. Independent interpretation of the following test(s) in the Emergency Department X-Ray: My interpretation is No consolidation seen on interpretation of x-ray images. Test considered but Not performed: MRI: No red flag symptoms to suggest cauda equina syndrome, spinal epidural abscess, not indicated. CT: Symptoms not consistent with pulmonary embolism, thoracic arctic dissection, CT angiogram not indicated. Care significantly affected by the following chronic conditions: Hypertension. Scoring Tools HEART Score: History: Slightly Suspicious (0) ECG: Normal (0) Age: < or = 45 years (0) Risk Factors: 1 or 2 Risk factors (1) Troponin: < or = 1 x Normal limit (0) Total Score = 1. Counseling: I had a detailed discussion with the patient and/or guardian regarding: the historical points, exam findings, and any diagnostic results supporting the discharge/admit diagnosis, lab results, radiology results, the need for outpatient follow up, to return to the emergency department if symptoms worsen or persist or if there are any questions or concerns that arise at home. Response to treatment: the patient's symptoms have markedly improved after treatment. 09/17 11:19 Order name: Basic Metabolic Panel; Complete Time: 12:35 rt 09/17 11:19 Order name: CBC with Diff; Complete Time: 12:32 rt 09/17 11:19 Order name: LFT's; Complete Time: 12:35 rt 09/17 11:19 Order name: Magnesium; Complete Time: 12:35 rt 09/17 11:19 Order name: Troponin HS; Complete Time: 12:35 rt 09/17 11:19 Order name: UAM; Complete Time: 12:32 rt 09/17 11:19 Order name: PREGU; Complete Time: 12:32 rt 09/17 11:19 Order name: XRAY Chest (1 view); Complete Time: 11:52 rt 09/17 11:19 Order name: EKG; Complete Time: 11:20 rt 09/17 11:19 Order name: Cardiac monitoring; Complete Time: 11:22 rt 09/17 11:19 Order name: EKG - Nurse/Tech; Complete Time: 11:22 rt 09/17 11:19 Order name: IV Saline Lock; Complete Time: 11:53 rt 09/17 11:19 Order name: Labs collected and sent; Complete Time: 11:53 rt 09/17 11:19 Order name: O2 Per Protocol; Complete Time: 11:22 rt 09/17 11:19 Order name: O2 Sat Monitoring; Complete Time: 11:22 rt EC:05 Rate is 90 beats/min. Rhythm is regular, Normal Sinus Rhythm with No ectopy. QRS [place] rt is Normal. PA interval is normal. QRS interval is normal. QT interval is normal. No Q waves. T waves are Normal. No ST changes noted. Interpreted by me. Administered Medications: 11:40 Drug: Cyclobenzaprine PO 10 mg Route: PO; [facility] 12:40 Follow up: Response: No adverse reaction 3 11:45 Drug: Ketorolac IVP 15 mg Route: IVP; Site: right antecubital; eh3 12:45 Follow up: Response: No adverse reaction eh3 Disposition Summary: 09/17/22 12:44 Discharge Ordered Location: Home rt Problem: new rt Symptoms: have improved rt Condition: Stable rt Diagnosis - Chest pain, unspecified rt - Low back pain rt Followup: rt - With: Private Physician - When: 2 - 3 days - Reason: Discharge Instructions: - Discharge Summary Sheet rt - Acute Back Pain, Adult rt - Nonspecific Chest Pain, Adult rt Forms: - Medication Reconciliation Form rt - Thank You Letter rt - Antibiotic Education rt - Prescription Opioid Use rt - Patient Portal Instructions rt Prescriptions: - Cyclobenzaprine 10 mg Oral Tablet - take 1 tablet by ORAL route every 8 hours As needed; 15 tablet; Refills: 0, rt Product Selection Permitted Signatures: Dispatcher [employer] Mayelin Regalado RN RN iw Olivia Chang RN RN 3 Jose J Rivera MD MD rt
[2022-09-17 13:16] VITALS: TEMP 97.3
[2022-09-17 13:19] VITALS: BP 138/77; O2SAT 99
--- NOTE | 2022-09-18 13:03 | EKG ---
Test Date: 2022-09-17 Test Time: 11:22:30 Certified Technician Specialist: [employer] MEASUREMENT RESULTS: Intervals: Rate: 90 AL: 164 QRSD: 86 QT: 370 QTc: 452 [place]: P: 47 AL: 164 QRS: 21 T: 23 INTERPRETIVE STATEMENTS: Normal sinus rhythm Normal ECG Compared to ECG 07/18/2022 17:21:39 No significant changes Electronically Signed On 09-18-22 13:00:39 CDT by Sony Guillermo
== END 2022-09-17 13:13 | disposition home or self-care (01) ==
LOC: ER 10:57
DX: R07.89 Other chest pain (principal); M54.50 Low back pain, unspecified; Z88.2 Allergy status to sulfonamides
CPT/HCPCS: 36415; 71045; 80048; 80076; 81001; 81025; 83735; 84484; 85025; 93005; 96374; 99285

== ENCOUNTER 2022-09-27 18:26 | Emergency (ER) | payer OTHER ==
--- OUTSIDE RECORDS SUMMARY | 2022-09-27 18:38 | XMS REPORT | Continuity of Care Document ---
:1975 Author Organization [facility] t Address [address] [place] [address] [address] [place] [address] Care Team Providers Name Role Phone Pcp, Patient Does Not Have A Primary Care Physician +1-000-0 00-0000 UNA HESTER Attending Clinician Unavailable UNA HESTER Attending Clinician Unavailable Pathology Attending Clinician Unavailable Pcp-Lab Attending Clinician Unavailable Doctor Unassigned, Malone Attending Clinician Unavailable DERRELL DIAS Attending Clinician [...] Policy Number Effective Date Expiration Date S [facility] [place] PENDING 2021 PENDING 00:00:00 Problems Condition Condition Condition Status Onset Resolution Last Treating Co mments Source Name Details Category Date Date Treatment Clinician Date No known No known Disease Unive rs active active ity of problems problems [facility] Allergies, Adverse Reactions, Alerts Allergy Allergy [...] Stop Date Quantity Comments Source Gender [facility] Sexual orientation [facility] History of Social 2022-07-26 2022-07-26 Univers ity of function 00:00:00 00:00:00 [facility] Exposure to 2022-02-05 2022-02-15 Not sure [facility] SARS-CoV-2 (event) 00:00:00 08:57:00 [facility] Tobacco use and 2021-08-24 2021-08-24 Smokeless Universit y of exposure 00:00:00 00:00:00 tobacco non-user [facility] Sex Assigned At [birth year] Universit y of 00:00:00 00:00:00 [facility] Smoking Status Start Date Stop Date Source Never smoked tobacco [facility] Medications Ordered Filled Start Stop Current Ordering Indication Dosage Frequency Signature Comments Components Source Medication Medication Date Date Medication? Clinician (SIG) Name Name DULoxetine Yes [id number] 60mg Take 1 U nivers 60 mg 8-15 capsule by ity of capsule 00:00: mouth in [place] [address] the Medical morning Branch and 1 capsule in the evening. DULoxetine 2023-0 Yes [id number] 60mg Take 1 U nivers 60 mg 8-15 capsule by ity of capsule 00:00: mouth in [place] [address] the Medical morning Branch and 1 capsule in the evening. lithium 2023-0 Yes [id number] 900mg Take 2 Uni vers carbonate 8-02 tablets by [place]y of CR 450 mg 00:00: [place] 00 bedtime. Medica l Branch busPIRone 2023-0 Yes [id number] 10mg Take 1 Un cristhian 10 mg 8-02 tablet by ity of tablet 00:00: mouth in [place] [address] the Medical morning Branch and 1 tablet in the evening. lamoTRIgine 2023-0 Yes [id number] 100mg Take 1 Univers 100 mg 8-02 tablet by ity of tablet 00:00: mouth in [place] [address] the [facility] morning [place] and 1 tablet in the evening. lithium 2023-0 Yes [id number] 900mg Take 2 Uni vers carbonate 8-02 tablets by ity of CR 450 mg 00:00: [place] 00 bedtime. Medica l Branch busPIRone 2023-0 Yes [id number] 10mg Take 1 Un cristhian 10 mg 8-02 tablet by ity of tablet 00:00: mouth in [place] [address] the [facility] morning [place] and 1 tablet in the evening. lamoTRIgine 2023-0 Yes [id number] 100mg Take 1 Univers 100 mg 8-02 tablet by ity of tablet 00:00: mouth in [place] [address] the [facility] morning [place] and 1 tablet in the evening. lithium 2023-0 Yes [id number] 900mg Take 2 Uni vers carbonate 8-02 tablets by ity of CR 450 mg 00:00: [place] 00 bedtime. Medica l Branch busPIRone 2023-0 Yes [id number] 10mg Take 1 Un cristhian 10 mg 8-02 tablet by ity of tablet 00:00: mouth in [place] [address] the [facility] morning [place] and 1 tablet in the evening. lamoTRIgine 2023-0 Yes [id number] 100mg Take 1 Univers 100 mg 8-02 tablet by ity of tablet 00:00: mouth in [place] [address] the [facility] morning Branch and 1 tablet in the evening. clonazePAM 3-0 Yes [id number] Take 1 U nivers 1 mg tablet 7-19 tablet by ity of 00:00: mouth [place] 00 twice Medical daily as Branch needed for anxiety. clonazePAM 3-0 Yes [id number] Take 1 U nivers 1 mg tablet 7-19 tablet by ity of 00:00: mouth [place] 00 twice Medical daily as Branch needed for anxiety. clonazePAM 3-0 Yes [id number] Take 1 U nivers 1 mg tablet 7-19 tablet by ity of 00:00: mouth [place] 00 twice Medical daily as Branch needed for anxiety. clonazePAM 2022-0 Yes [id number] Take 1 U nivers 1 mg tablet 7-19 tablet by ity of 00:00: mouth [place] 00 twice Medical daily as Branch needed for anxiety. clonazePAM 2022-0 Yes [id number] Take 1 U nivers 1 mg tablet 7-19 tablet by ity of 00:00: mouth [place] 00 twice Medical daily as Branch needed for anxiety. clonazePAM 2022-0 Yes [id number] Take 1 U nivers 1 mg tablet 7-19 tablet by ity of 00:00: mouth [place] 00 twice Medical daily as Branch needed for anxiety. clonazePAM 2022-0 2023- No [id number] Take 1 Univers 1 mg tablet 7-19 08-14 tablet by it y of 00:00: 00:00 mouth [place] 00 :00 twice Medical daily as Branch needed for anxiety. FUROSEMIDE 2022-0 3- No 40mg Take 40 mg Univers ORAL 6-14 06-14 by mouth ity of 09:33: 00:00 daily. [place] 26 :00 Medical Branch FUROSEMIDE 2022-0 2023- No 40mg Take 40 mg Univers ORAL 6-14 06-14 by mouth ity of 09:33: 00:00 daily. [place] 26 :00 Medical Branch FUROSEMIDE 3-0 2023- No 40mg Take 40 mg Univers ORAL 6-14 06-14 by mouth ity of 09:33: 00:00 daily. [place] 26 :00 Medical Branch FUROSEMIDE 2022-0 2023- No 40mg Take 40 mg Univers ORAL 6-14 06-14 by mouth ity of 09:33: 00:00 daily. [place] 26 :00 Medical Branch DULoxetine 3-0 Yes [id number] 60mg Take 1 U nivers 60 mg 6-14 capsule by ity of capsule 00:00: mouth in [place] 00 the Medical morning Branch and 1 capsule in the evening. lamoTRIgine 2023-0 Yes [id number] 100mg Take 1 Univers 100 mg 6-14 tablet by ity of tablet 00:00: mouth in [place] 00 the Medical morning Branch and 1 tablet in the evening. lithium 2023-0 Yes [id number] 900mg Take 2 Uni vers carbonate 6-14 tablets by ity of CR 450 mg 00:00: [place] tablet 00 bedtime. Medica l Branch traZODone 2023-0 Yes [id number] 50mg Take 1 U nivers 50 mg 6-14 tablet by ity of tablet 00:00: mouth at [place] [address] bedtime. June cut Branch tablet in half. busPIRone 3-0 Yes [id number] 10mg Take 1 Un cristhian 10 mg 6-14 tablet by ity of tablet 00:00: mouth in [place] [address] the Medical morning Branch and 1 tablet in the evening. DULoxetine 3-0 Yes [id number] 60mg Take 1 U nivers 60 mg 6-14 capsule by ity of capsule 00:00: mouth in [place] [address] the Medical morning Branch and 1 capsule in the evening. lamoTRIgine 3-0 Yes [id number] 100mg Take 1 Univers 100 mg 6-14 tablet by ity of tablet 00:00: mouth in [place] 00 the Medical morning Branch and 1 tablet in the evening. lithium 3-0 Yes [id number] 900mg Take 2 Uni vers carbonate 6-14 tablets by ity of CR 450 mg 00:00: [place] tablet 00 bedtime. Medica l Branch traZODone 3-0 Yes [id number] 50mg Take 1 U nivers 50 mg 6-14 tablet by ity of tablet 00:00: mouth at [place] 00 bedtime. Medical June cut Branch tablet in half. busPIRone 2023-0 Yes [id number] 10mg Take 1 Un cristhian 10 mg 6-14 tablet by ity of tablet 00:00: mouth in [place] [address] the Medical morning Branch and 1 tablet in the evening. DULoxetine 2023-0 Yes [id number] 60mg Take 1 U nivers 60 mg 6-14 capsule by ity of capsule 00:00: mouth in [place] [address] the Medical morning Branch and 1 capsule in the evening. lamoTRIgine 2023-0 Yes [id number] 100mg Take 1 Univers 100 mg 6-14 tablet by ity of tablet 00:00: mouth in [place] 00 the Medical morning Branch and 1 tablet in the evening. lithium 3-0 Yes [id number] 900mg Take 2 Uni vers carbonate 6-14 tablets by ity of CR 450 mg 00:00: [place] tablet 00 bedtime. Medica l Branch traZODone 2022-0 Yes [id number] 50mg Take 1 U nivers 50 mg 6-14 tablet by ity of tablet 00:00: mouth at [place] 00 bedtime. June cut Branch tablet in half. busPIRone 2022-0 Yes [id number] 10mg Take 1 Un cristhian 10 mg 6-14 tablet by ity of tablet 00:00: mouth in [place] 00 the Medical morning Branch and 1 tablet in the evening. DULoxetine 2022-0 Yes [id number] 60mg Take 1 U nivers 60 mg 6-14 capsule by ity of capsule 00:00: mouth in [place] 00 the Medical morning Branch and 1 capsule in the evening. lamoTRIgine 2022-0 Yes [id number] 100mg Take 1 Univers 100 mg 6-14 tablet by ity of tablet 00:00: mouth in [place] 00 the Medical morning Branch and 1 tablet in the evening. lithium 2022-0 Yes [id number] 900mg Take 2 Uni vers carbonate 6-14 tablets by ity of CR 450 mg 00:00: [place] tablet 00 bedtime. Medica l Branch traZODone 2022-0 Yes [id number] 50mg Take 1 U nivers 50 mg 6-14 tablet by ity of tablet 00:00: mouth at [place] 00 bedtime. June cut Branch tablet in half. busPIRone 3-0 Yes [id number] 10mg Take 1 Un cristhian 10 mg 6-14 tablet by ity of tablet 00:00: mouth in [place] 00 the Medical morning Branch and 1 tablet in the evening. DULoxetine 3-0 Yes [id number] 60mg Take 1 U nivers 60 mg 6-14 capsule by ity of capsule 00:00: mouth in [place] [address] the Medical morning Branch and 1 capsule in the evening. lamoTRIgine 3-0 Yes [id number] 100mg Take 1 Univers 100 mg 6-14 tablet by ity of tablet 00:00: mouth in [place] 00 the Medical morning Branch and 1 tablet in the evening. lithium 2023-0 Yes [id number] 900mg Take 2 Uni vers carbonate 6-14 tablets by ity of CR 450 mg 00:00: [place] tablet 00 bedtime. Medica l Branch traZODone 3-0 Yes [id number] 50mg Take 1 U nivers 50 mg 6-14 tablet by ity of tablet 00:00: mouth at [place] 00 bedtime. Medical June cut Branch tablet in half. busPIRone 2023-0 Yes [id number] 10mg Take 1 Un cristhian 10 mg 6-14 tablet by ity of tablet 00:00: mouth in [place] 00 the Medical morning Branch and 1 tablet in the evening. DULoxetine 2023-0 Yes [id number] 60mg Take 1 U nivers 60 mg 6-14 capsule by ity of capsule 00:00: mouth in [place] 00 the Medical morning Branch and 1 capsule in the evening. lamoTRIgine 3-0 Yes [id number] 100mg Take 1 Univers 100 mg 6-14 tablet by ity of tablet 00:00: mouth in [place] 00 the Medical morning Branch and 1 tablet in the evening. lithium 3-0 Yes [id number] 900mg Take 2 Uni vers carbonate 6-14 tablets by ity of CR 450 mg 00:00: [place] SR tablet 00 bedtime. Medica l Branch traZODone 3-0 Yes [id number] 50mg Take 1 U nivers 50 mg 6-14 tablet by ity of tablet 00:00: mouth at [place] 00 bedtime. June cut Branch tablet in half. busPIRone 2023-0 Yes [id number] 10mg Take 1 Un cristhian 10 mg 6-14 tablet by ity of tablet 00:00: mouth in [place] 00 the Medical morning Branch and 1 tablet in the evening. DULoxetine 2023-0 Yes [id number] 60mg Take 1 U nivers 60 mg 6-14 capsule by ity of capsule 00:00: mouth in [place] 00 the Medical morning Branch and 1 capsule in the evening. lamoTRIgine 2023-0 Yes [id number] 100mg Take 1 Univers 100 mg 6-14 tablet by ity of tablet 00:00: mouth in [place] 00 the Medical morning Branch and 1 tablet in the evening. lithium 2023-0 Yes [id number] 900mg Take 2 Uni vers carbonate 6-14 tablets by ity of CR 450 mg 00:00: [place] SR tablet 00 bedtime. Medica l Branch traZODone 3-0 Yes [id number] 50mg Take 1 U nivers 50 mg 6-14 tablet by ity of tablet 00:00: mouth at [place] 00 bedtime. June cut Branch tablet in half. busPIRone 3-0 Yes [id number] 10mg Take 1 Un cristhian 10 mg 6-14 tablet by ity of tablet 00:00: mouth in [place] 00 the Medical morning Branch and 1 tablet in the evening. DULoxetine 3-0 Yes [id number] 60mg Take 1 U nivers 60 mg 6-14 capsule by ity of capsule 00:00: mouth in [place] 00 the Medical morning Branch and 1 capsule in the evening. lamoTRIgine 3-0 Yes [id number] 100mg Take 1 Univers 100 mg 6-14 tablet by ity of tablet 00:00: mouth in [place] 00 the Medical morning Branch and 1 tablet in the evening. lithium 2022-0 Yes [id number] 900mg Take 2 Uni vers carbonate 6-14 tablets by ity of CR 450 mg 00:00: [place] SR tablet 00 bedtime. Medica l Branch traZODone 2022-0 Yes [id number] 50mg Take 1 U nivers 50 mg 6-14 tablet by ity of tablet 00:00: mouth at [place] 00 bedtime. June cut Branch tablet in half. busPIRone 3-0 Yes [id number] 10mg Take 1 Un cristhian 10 mg 6-14 tablet by ity of tablet 00:00: mouth in [place] 00 the Medical morning Branch and 1 tablet in the evening. DULoxetine 3-0 Yes [id number] 60mg Take 1 U nivers 60 mg 6-14 capsule by ity of capsule 00:00: mouth in [place] 00 the Medical morning Branch and 1 capsule in the evening. lamoTRIgine 2023-0 Yes [id number] 100mg Take 1 Univers 100 mg 6-14 tablet by ity of tablet 00:00: mouth in [place] 00 the Medical morning Branch and 1 tablet in the evening. lithium 2023-0 Yes [id number] 900mg Take 2 Uni vers carbonate 6-14 tablets by ity of CR 450 mg 00:00: mouth at [facility] s SR tablet 00 bedtime. Medica l Branch traZODone 2022-0 Yes [id number] 50mg Take 1 U nivers 50 mg 6-14 tablet by ity of tablet 00:00: mouth at [place] 00 bedtime. Medical May cut Branch tablet in half. busPIRone 2022-0 Yes [id number] 10mg Take 1 Un cristhian 10 mg 6-14 tablet by ity of tablet 00:00: mouth in [place] 00 the Medical morning Branch and 1 tablet in the evening. DULoxetine 2022-0 Yes [id number] 60mg Take 1 U nivers 60 mg 6-14 capsule by ity of capsule 00:00: mouth in [place] 00 the Medical morning Branch and 1 capsule in the evening. traZODone 2022-0 Yes [id number] 50mg Take 1 U nivers 50 mg 6-14 tablet by ity of tablet 00:00: mouth at [place] 00 bedtime. Medical May cut Branch tablet in half. traZODone 2022-0 Yes [id number] 50mg Take 1 U nivers 50 mg 6-14 tablet by ity of tablet 00:00: mouth at [place] 00 bedtime. Medical May cut Branch tablet in half. traZODone 2022-0 Yes [id number] 50mg Take 1 U nivers 50 mg 6-14 tablet by ity of tablet 00:00: mouth at [place] 00 bedtime. Medical May cut Branch tablet in half. DULoxetine 2022-2022- No [id number] 60mg Take 1 Univers 60 mg 6-14 08-14 capsule by ity of capsule 00:00: 00:00 mouth in [place] 00 :00 the Medical morning Branch and 1 capsule in the evening. DULoxetine 2022-0 2022- No [id number] 60mg Take 1 Univers 60 mg 6-14 08-14 capsule by ity of capsule 00:00: 00:00 mouth in [place] 00 :00 the Medical morning Branch and 1 capsule in the evening. lamoTRIgine 2022-0 2022- No [id number] 100mg Take 1 Univers 100 mg 6-14 08-02 tablet by ity of tablet 00:00: 00:00 mouth in [place] 00 :00 the Medical morning Branch and 1 tablet in the evening. lithium 2022-0 2022- No [id number] 900mg Take 2 Un cristhian carbonate 6-14 08-02 tablets by ity of CR 450 mg 00:00: 00:00 mouth [place] tablet 00 :00 bedtime. Medica l Branch busPIRone 2022-2022- No [id number] 10mg Take 1 U nivers 10 mg 6-14 08-02 tablet by ity of tablet 00:00: 00:00 mouth in [place] 00 :00 the Medical morning Branch and 1 tablet in the evening. lamoTRIgine 2022-0 2022- No [id number] 100mg Take 1 Univers 100 mg 6-14 08-02 tablet by ity of tablet 00:00: 00:00 mouth in [place] 00 :00 the Medical morning Branch and 1 tablet in the evening. lithium 2022-2022- No [id number] 900mg Take 2 Un cristhian carbonate 6-14 08-02 tablets by ity of CR 450 mg 00:00: 00:00 mouth [place] tablet 00 :00 bedtime. Medica l Branch busPIRone 2022-2022- No [id number] 10mg Take 1 U nivers 10 mg 6-14 08-02 tablet by ity of tablet 00:00: 00:00 mouth in [place] 00 :00 the Medical morning Branch and 1 tablet in the evening. lamoTRIgine 2022-0 2022- No [id number] 100mg Take 1 Univers 100 mg 6-14 08-02 tablet by ity of tablet 00:00: 00:00 mouth in [place] 00 :00 the Medical morning Branch and 1 tablet in the evening. lithium 2022-0 2022- No [id number] 900mg Take 2 Un cristhian carbonate 6-14 08-02 tablets by ity of CR 450 mg 00:00: 00:00 mouth [place] tablet 00 :00 bedtime. Medica l Branch busPIRone 2022-0 2022- No [id number] 10mg Take 1 U nivers 10 mg 6-14 08-02 tablet by ity of tablet 00:00: 00:00 mouth in [place] 00 :00 the Medical morning Branch and 1 tablet in the evening. lamoTRIgine 3-0 Yes [id number] 100mg Take 1 Univers 100 mg 6-07 tablet by ity of tablet 00:00: mouth in [place] 00 the Medical morning Branch and 1 tablet in the evening. lamoTRIgine 2023-0 Yes [id number] 100mg Take 1 [facility] 100 mg 6-07 tablet by ity of tablet 00:00: mouth in [place] 00 the Medical morning Branch and 1 tablet in the evening. lamoTRIgine 2023-0 2023- No [id number] 100mg Take 1 Univers 100 mg 6-08 17-14 tablet by ity of tablet 00:00: 00:00 mouth in [place] 00 :00 the Medical morning Branch and 1 tablet in the evening. lamoTRIgine 2023-0 2023- No [id number] 100mg Take 1 Univers 100 mg 6-08 17-14 tablet by ity of tablet 00:00: 00:00 mouth in [place] 00 :00 the Medical morning Branch and 1 tablet in the evening. lamoTRIgine 2023-0 2023- No [id number] 100mg Take 1 Univers 100 mg 6-08 17- tablet by ity of tablet 00:00: 00:00 mouth in [place] 00 :00 the Medical morning Branch and 1 tablet in the evening. lamoTRIgine 2023-0 2023- No [id number] 100mg Take 1 Univers 100 mg 6-08 17-14 tablet by ity of tablet 00:00: 00:00 mouth in [place] 00 :00 the Medical morning Branch and 1 tablet in the evening. clonazePAM 2023-0 Yes [id number] Take 1 U nivers 1 mg tablet 5-24 tablet by ity of 00:00: mouth [place] 00 twice Medical daily as Branch needed for anxiety. clonazePAM 2023-0 Yes [id number] Take 1 U nivers 1 mg tablet 5-24 tablet by ity of 00:00: mouth [place] 00 twice Medical daily as Branch needed for anxiety. clonazePAM 2023-0 Yes [id number] Take 1 U nivers 1 mg tablet 5-24 tablet by ity of 00:00: mouth [place] 00 twice Medical daily as Branch needed for anxiety. clonazePAM 2023-0 Yes [id number] Take 1 U nivers 1 mg tablet 5-24 tablet by ity of 00:00: mouth [place] 00 twice Medical daily as Branch needed for anxiety. clonazePAM 2023-0 Yes [id number] Take 1 U nivers 1 mg tablet 5-24 tablet by ity of 00:00: mouth [place] 00 twice Medical daily as Branch needed for anxiety. clonazePAM 2023-0 Yes [id number] Take 1 U nivers 1 mg tablet 5-24 tablet by ity of 00:00: mouth [place] 00 twice Medical daily as Branch needed for anxiety. clonazePAM 3-0 Yes [id number] Take 1 U nivers 1 mg tablet 5-24 tablet by ity of 00:00: mouth [place] 00 twice Medical daily as Branch needed for anxiety. clonazePAM 3-0 Yes [id number] Take 1 U nivers 1 mg tablet 5-24 tablet by ity of 00:00: mouth [place] 00 twice Medical daily as Branch needed for anxiety. clonazePAM 2022-0 2022- No [id number] Take 1 Univers 1 mg tablet 07-05-18 tablet by it y of 00:00: 00:00 mouth [place] 00 :00 twice Medical daily as Branch needed for anxiety. clonazePAM 2022-0 2022- No [id number] Take 1 Univers 1 mg tablet 07-05-18 tablet by it y of 00:00: 00:00 mouth [place] 00 :00 twice Medical daily as Branch needed for anxiety. clonazePAM 2022-0 2022- No [id number] Take 1 Univers 1 mg tablet 07-05-18 tablet by it y of 00:00: 00:00 mouth [place] 00 :00 twice Medical daily as Branch needed for anxiety. clonazePAM 2022-0 2022- No [id number] Take 1 Univers 1 mg tablet 07-05-18 tablet by it y of 00:00: 00:00 mouth [place] 00 :00 twice Medical daily as Branch needed for anxiety. clonazePAM 2022-0 2022- No [id number] Take 1 Univers 1 mg tablet 07-05-18 tablet by it y of 00:00: 00:00 mouth [place] 00 :00 twice Medical daily as Branch needed for anxiety. clonazePAM 2022-0 2022- No [id number] Take 1 Univers 1 mg tablet 07-05-18 tablet by it y of 00:00: 00:00 mouth [place] 00 :00 twice Medical daily as Branch needed for anxiety. clonazePAM 2022-0 2022- No [id number] Take 1 Univers 1 mg tablet 07-05-18 tablet by it y of 00:00: 00:00 mouth [place] 00 :00 twice Medical daily as Branch needed for anxiety. DULoxetine 3-0 Yes [id number] 60mg Take 1 U nivers 60 mg 5-09 capsule by ity of capsule 00:00: mouth in [place] 00 the Medical morning Branch and 1 capsule in the evening. lithium 2022-0 Yes [id number] 900mg Take 2 Uni vers carbonate 5-09 tablets by ity of CR 450 mg 00:00: [place] SR tablet 00 bedtime. [facility] DULoxetine 2022-0 Yes [id number] 60mg Take 1 U nivers 60 mg 5-09 capsule by ity of capsule 00:00: mouth in [place] 00 the Medical morning Branch and 1 capsule in the evening. lithium 2022-0 Yes [id number] 900mg Take 2 Uni vers carbonate 5-09 tablets by ity of CR 450 mg 00:00: [place] SR tablet 00 bedtime. [facility] DULoxetine 2022-0 Yes [id number] 60mg Take 1 U nivers 60 mg 5-09 capsule by ity of capsule 00:00: mouth in [place] 00 the Medical morning Branch and 1 capsule in the evening. lithium 2022-0 Yes [id number] 900mg Take 2 Uni vers carbonate 5-09 tablets by ity of CR 450 mg 00:00: mouth [place] SR tablet 00 bedtime. [facility] DULoxetine 2022-0 Yes [id number] 60mg Take 1 U nivers 60 mg 5-09 capsule by ity of capsule 00:00: mouth in [place] 00 the Medical morning Branch and 1 capsule in the evening. lithium 2022-0 Yes [id number] 900mg Take 2 Uni vers carbonate 5-09 tablets by ity of CR 450 mg 00:00: mouth [place] SR tablet 00 bedtime. [facility] DULoxetine 2022-0 Yes [id number] 60mg Take 1 U nivers 60 mg 5-09 capsule by ity of capsule 00:00: mouth in [place] 00 the Medical morning Branch and 1 capsule in the evening. lithium 2022-0 Yes [id number] 900mg Take 2 Uni vers carbonate 5-09 tablets by ity of CR 450 mg 00:00: [place] SR tablet 00 bedtime. [facility] DULoxetine 2022-0 3- No [id number] 60mg Take 1 Univers 60 mg 5-09 06-14 capsule by ity of capsule 00:00: 00:00 mouth in [place] 00 :00 the Medical morning Branch and 1 capsule in the evening. lithium 2022- No [id number] 900mg Take 2 Un cristhian carbonate 06-20-14 tablets by ity of CR 450 mg 00:00: 00:00 mouth at [place] tablet 00 :00 bedtime. Medica l Branch DULoxetine 2022- No [id number] 60mg Take 1 [facility] 60 mg 06-20 capsule by ity of capsule 00:00: 00:00 mouth in [place] 00 :00 the Medical morning Branch and 1 capsule in the evening. lithium 2022- No [id number] 900mg Take 2 Un cristhian carbonate 06-20-14 tablets by ity of CR 450 mg 00:00: 00:00 mouth [place] 00 :[facility] DULox[facility]- No [id number] 60mg Take 1 [facility] 60 mg 06-20 capsule by ity of capsule 00:00: 00:00 mouth in [place] 00 :00 the Medical morning Branch and 1 capsule in the evening. lithium 2022- No [id number] 900mg Take 2 Un cristhian carbonate 06-2014 tablets by ity of CR 450 mg 00:00: 00:00 mouth at [place] tablet 00 :00 [facility]. [facility] DULoxetine 2022- No [id number] 60mg Take 1 Univers 60 mg 06-20 capsule by ity of capsule 00:00: 00:00 mouth in [place] 00 :00 the Medical morning Branch and 1 capsule in the evening. lithium 2022- No [id number] 900mg Take 2 Un cristhian carbonate 06-20-14 tablets by ity of CR 450 mg 00:00: 00:00 mouth at [place] tablet 00 :00 bedtime. Medica l Branch DULoxetine 0 Yes [id number] 60mg Take 1 U nivers 60 mg 3-09 capsule by ity of capsule 00:00: mouth in [place] 00 the Medical morning Branch and 1 capsule in the evening. clonazePAM 2022-0 Yes [id number] Take 1 U nivers 1 mg tablet 3-09 tablet by ity of 00:00: mouth [place] 00 twice Medical daily as Branch needed for anxiety. lamoTRIgine 2022-0 Yes [id number] 100mg Take 1 [facility] 100 mg 3-09 tablet by ity of tablet 00:00: mouth in [place] 00 the Medical morning Branch and 1 tablet in the evening. traZODone 2023-0 Yes [id number] 50mg Take 1 U nivers 50 mg 3-09 tablet by ity of tablet 00:00: mouth at [place] 00 bedtime. Medical May cut Branch tablet in half. lithium 3-0 Yes [id number] 900mg Take 2 Uni vers carbonate 3-09 tablets by ity of CR 450 mg 00:00: [place] tablet 00 bedtime. Medica l Branch DULoxetine 3-0 Yes [id number] 60mg Take 1 U nivers 60 mg 3-09 capsule by ity of capsule 00:00: mouth in [place] 00 the Medical morning Branch and 1 capsule in the evening. clonazePAM 2022-0 Yes [id number] Take 1 U nivers 1 mg tablet 3-09 tablet by ity of 00:00: mouth [place] 00 twice Medical daily as Branch needed for anxiety. lamoTRIgine 2022-0 Yes [id number] 100mg Take 1 [facility] 100 mg 3-09 tablet by ity of tablet 00:00: mouth in [place] 00 the Medical morning Branch and 1 tablet in the evening. traZODone 3-0 Yes [id number] 50mg Take 1 U nivers 50 mg 3-09 tablet by ity of tablet 00:00: mouth at [place] 00 bedtime. Medical May cut Branch tablet in half. lithium 3-0 Yes 900mg Take 2 Uni vers carbonate 3-09 tablets by ity of CR 450 mg 00:00: [place] SR tablet 00 bedtime. Medica l Branch clonazePAM 3-0 Yes [id number] Take 1 U nivers 1 mg tablet 3-09 tablet by ity of 00:00: mouth [place] 00 twice Medical daily as Branch needed for anxiety. lamoTRIgine 3-0 Yes [id number] 100mg Take 1 [facility] 100 mg 3-09 tablet by [facility] tablet 00:00: mouth in [place] 00 the Medical morning Branch and 1 tablet in the evening. traZODone 3-0 Yes [id number] 50mg Take 1 [facility] 50 mg 3-09 tablet by [facility] tablet 00:00: mouth at [place] [address] bedtime. Medical May cut Branch tablet in half. clonazePAM 2022-0 Yes [id number] Take 1 [facility] 1 mg tablet 3-09 tablet by [facility] of 00:00: mouth [place] 00 twice Medical daily as Branch needed for anxiety. lamoTRIgine 2022-0 Yes [id number] 100mg Take 1 [facility] 100 mg 3-09 tablet by [facility] of tablet 00:00: mouth in [place] 00 the Medical morning Branch and 1 tablet in the evening. traZODone 2022-0 Yes [id number] 50mg Take 1 [facility] 50 mg 3-09 tablet by [facility] of tablet 00:00: mouth at [place] [address] bedtime. Medical May cut Branch tablet in half. lamoTRIgine 2022-0 Yes [id number] 100mg Take 1 [facility] 100 mg 3-09 tablet by [facility] of tablet 00:00: mouth in [place] 00 the Medical morning Branch and 1 tablet in the evening. traZODone 2022-0 Yes [id number] 50mg Take 1 [facility] 50 mg 3-09 tablet by [facility] of tablet 00:00: mouth at [place] [address] bedtime. Medical May cut Branch tablet in half. traZODone 2022-0 Yes [id number] 50mg Take 1 [facility] 50 mg 3-09 tablet by [facility] tablet 00:00: mouth at [place] [address] bedtime. Medical May cut Branch tablet in half. traZODone 2022-0 Yes [id number] 50mg Take 1 [facility] 50 mg 3-09 tablet by [facility] of tablet 00:00: mouth at [place] [address] bedtime. Medical May cut Branch tablet in half. traZODone 2022-0 3- No [id number] 50mg Take 1 [facility] 50 mg 3-09 06-14 tablet by [facility] of tablet 00:00: 00:00 mouth at [place] 00 :00 bedtime. Medical May cut Branch tablet in half. traZODone 3-0 3- No [id number] 50mg Take 1 [facility] 50 mg 3-09 06-14 tablet by [facility] of tablet 00:00: 00:00 mouth at [place] 00 :00 bedtime. Medical May cut Branch tablet in half. traZODone 3-0 3- No [id number] 50mg Take 1 [facility] 50 mg 3-09 -14 tablet by [facility] of tablet 00:00: 00:00 mouth at [place] 00 :00 bedtime. Medical May cut Branch tablet in half. traZODone 3-0 3- No [id number] 50mg Take 1 [facility] 50 mg 04-20 tablet by [facility] of tablet 00:00: 00:00 mouth at [place] 00 :00 bedtime. Medical May cut Branch tablet in half. lamoTRIgine 2023-0 3- No [id number] 100mg Take 1 [facility] 100 mg 04-20 tablet by [facility] of tablet 00:00: 00:00 mouth in [place] 00 :00 the Medical morning Branch and 1 tablet in the evening. lamoTRIgine 2023-0 3- No [id number] 100mg Take 1 [facility] 100 mg 04-20 tablet by [facility] of tablet 00:00: 00:00 mouth in [place] 00 :00 the Medical morning Branch and 1 tablet in the evening. lamoTRIgine 2023-0 3- No [id number] 100mg Take 1 [facility] 100 mg 04-20 tablet by [facility] of tablet 00:00: 00:00 mouth in [place] 00 :00 the Medical morning Branch and 1 tablet in the evening. lamoTRIgine 3-0 3- No [id number] 100mg Take 1 [facility] 100 mg 04-20 tablet by [facility] of tablet 00:00: 00:00 mouth in [place] 00 :00 the Medical morning Branch and 1 tablet in the evening. clonazePAM 3-0 3- No [id number] Take 1 [facility] 1 mg tablet 04-2024 tablet by it y of 00:00: 00:00 mouth [place] 00 :00 twice Medical daily as Branch needed for anxiety. clonazePAM 3-0 2022- No [id number] Take 1 [facility] 1 mg tablet 04-2024 tablet by it y of 00:00: 00:00 mouth [place] 00 :00 twice Medical daily as Branch needed for anxiety. clonazePAM 2023-0 2022- No [id number] Take 1 [facility] 1 mg tablet 04-20-24 tablet by it y of 00:00: 00:00 mouth [place] 00 :00 twice Medical daily as Branch needed for anxiety. clonazePAM 2023-0 2022- No [id number] Take 1 [facility] 1 mg tablet 04-2024 tablet by it y of 00:00: 00:00 mouth [place] 00 :00 twice Medical daily as Branch needed for anxiety. clonazePAM 2022- No [id number] Take 1 [facility] 1 mg tablet 04-20 tablet by it y of 00:00: 00:00 mouth [place] 00 :00 twice Medical daily as Branch needed for anxiety. DULoxetine 2022- No [id number] 60mg Take 1 [facility] 60 mg 04-20-06 capsule by [facility] of capsule 00:00: 00:00 mouth in [place] 00 :00 the Medical morning Branch and 1 capsule in the evening. lithium 2022- No [id number] 900mg Take 2 [facility] cristhian carbonate 04-20-06 tablets by ity of CR 450 mg 00:00: 00:00 mouth [place] 00 :00 [facility] D[facility] 20[facility]- No [id number] 60mg Take 1 [facility] 60 mg 04-20-06 capsule by ity of capsule 00:00: 00:00 mouth in [place] 00 :00 the Medical morning Branch and 1 capsule in the evening. lithium 2022- No [id number] 900mg Take 2 Un cristhian carbonate 04-20-06 tablets by ity of CR 450 mg 00:00: 00:00 mouth [place] tablet 00 :00 [facility]. [facility] DULox[facility] 2022- No [id number] 60mg Take 1 [facility] 60 mg 04-20- capsule by ity of capsule 00:00: 00:00 mouth in [place] 00 :00 the Medical morning Branch and 1 capsule in the evening. lithium 2022- No [id number] 900mg Take 2 Un cristhian carbonate 04-20-06 tablets by ity of CR 450 mg 00:00: 00:00 mouth [place] tablet 00 :00 [facility]. [facility] lamoTRIgine 3-0 Yes [id number] 100mg Take 1 [facility] 100 mg 1-26 tablet by ity of tablet 00:00: mouth in [place] 00 the Medical morning Branch and 1 tablet in the evening. lamoTRIgine 3-0 Yes [id number] 100mg Take 1 [facility] 100 mg 1-26 tablet by ity of tablet 00:00: mouth in [place] 00 the Medical morning Branch and 1 tablet in the evening. lamoTRIgine 2023-0 Yes [id number] 100mg Take 1 [facility] 100 mg 1-26 tablet by ity of tablet 00:00: mouth in [place] 00 the Medical morning Branch and 1 tablet in the evening. lamoTRIgine 2023-0 Yes [id number] 100mg Take 1 [facility] 100 mg 1-26 tablet by ity of tablet 00:00: mouth in [place] 00 the [facility] morning [place] and 1 tablet in the evening. lamoTRIgine 2023-0 2023- No [id number] 100mg Take 1 [facility] 100 mg 1-26 03-09 tablet by ity of tablet 00:00: 00:00 mouth in [place] 00 :00 the [facility] morning [place] and 1 tablet in the evening. lamoTRIgine 3-0 2023- No [id number] 100mg Take 1 [facility] 100 mg 1-26 03-09 tablet by ity of tablet 00:00: 00:00 mouth in [place] 00 :00 the [facility] and 1 tablet in the evening. DULoxetine 3-0 Yes [id number] 60mg Take 1 [facility] n[facility] 60 mg 1-04 capsule by ity of capsule 00:00: mouth in [place] [address] the [facility] morning [place] and 1 capsule in the evening. lamoTRIgine 3-0 Yes [id number] 100mg Take 1 [facility] 100 mg 1-04 tablet by ity of tablet 00:00: mouth in [place] 00 the [facility] morning [place] and 1 tablet in the evening. traZODone 3-0 Yes [id number] 50mg Take 1 [facility] 50 mg 1-04 tablet by ity of tablet 00:00: mouth at [place] [address] bedtime. Medical May cut Branch tablet in half. clonazePAM 3-0 Yes [id number] Take 1 [facility] n[facility] 1 mg tablet 1-04 tablet by ity of 00:00: mouth [place] 00 twice Medical daily as Branch needed for anxiety. lithium 600 2023-0 Yes [id number] 600mg Take 1 [facility] mg capsule 1-04 capsule by ity of 00:00: mouth in [place] [address] the [facility] and 1 capsule in the evening. DULoxetine 2023-0 Yes [id number] 60mg Take 1 [facility] 60 mg 1-04 capsule by ity of capsule 00:00: mouth in [place] [address] the [facility] and 1 capsule in the evening. lamoTRIgine 2023-0 Yes [id number] 100mg Take 1 [facility] 100 mg 1-04 tablet by ity of tablet 00:00: mouth in [place] 00 the Medical morning Branch and 1 tablet in the evening. traZODone 2023-0 Yes [id number] 50mg Take 1 [facility] 50 mg 1-04 tablet by ity of tablet 00:00: mouth at [place] 00 bedtime. Medical May cut Branch tablet in half. clonazePAM 2023-0 Yes [id number] Take 1 [facility] 1 mg tablet 1-04 tablet by ity of 00:00: mouth [place] 00 twice Medical daily as Branch needed for anxiety. lithium 2023-0 Yes [id number] 900mg Take 2 [facility] vers carbonate 1-04 tablets by [facility] of CR 450 mg 00:00: [place] SR tablet 00 bedtime. Medica l Branch DULoxetine 3-0 Yes [id number] 60mg Take 1 [facility] 60 mg 1-04 capsule by ity of capsule 00:00: mouth in [place] 00 the Medical morning Branch and 1 capsule in the evening. lamoTRIgine 3-0 Yes [id number] 100mg Take 1 [facility] 100 mg 1-04 tablet by it[facility] of tablet 00:00: mouth in [place] 00 the Medical morning Branch and 1 tablet in the evening. traZODone 3-0 Yes [id number] 50mg Take 1 [facility] 50 mg 1-04 tablet by it[facility] of tablet 00:00: mouth at [place] 00 bedtime. Medical May cut Branch tablet in half. clonazePAM 3-0 Yes [id number] Take 1 [facility] 1 mg tablet 1-04 tablet by ity of 00:00: mouth [place] 00 twice Medical daily as Branch needed for anxiety. lithium 3-0 Yes [id number] 900mg Take 2 [facility] vers carbonate 1-04 tablets by [facility] of CR 450 mg 00:00: [place] tablet 00 bedtime. Medica l Branch DULoxetine 3-0 Yes [id number] 60mg Take 1 [facility] 60 mg 1-04 capsule by ity of capsule 00:00: mouth in [place] 00 the Medical morning Branch and 1 capsule in the evening. lamoTRIgine 2023-0 Yes [id number] 100mg Take 1 [facility] 100 mg 1-04 tablet by ity of tablet 00:00: mouth in [place] 00 the Medical morning Branch and 1 tablet in the evening. traZODone 2023-0 Yes [id number] 50mg Take 1 [facility] 50 mg 1-04 tablet by it[facility] of tablet 00:00: mouth at [place] 00 bedtime. Medical May cut Branch tablet in half. clonazePAM 3-0 Yes [id number] Take 1 [facility] 1 mg tablet 1-04 tablet by ity of 00:00: mouth [place] 00 twice Medical daily as Branch needed for anxiety. lithium 3-0 Yes [id number] 900mg Take 2 [facility] vers carbonate 1-04 tablets by it[facility] of CR 450 mg 00:00: [place] SR tablet 00 bedtime. Medica l Branch DULoxetine 2022-0 Yes [id number] 60mg Take 1 [facility] 60 mg 1-04 capsule by ity of capsule 00:00: mouth in [place] 00 the Medical morning Branch and 1 capsule in the evening. lamoTRIgine 3-0 Yes [id number] 100mg Take 1 [facility] 100 mg 1-04 tablet by ity of tablet 00:00: mouth in [place] 00 the Medical morning Branch and 1 tablet in the evening. traZODone 2022-0 Yes [id number] 50mg Take 1 [facility] 50 mg 1-04 tablet by ity of tablet 00:00: mouth at [place] 00 bedtime. Medical May cut Branch tablet in half. clonazePAM 3-0 Yes [id number] Take 1 [facility] 1 mg tablet 1-04 tablet by ity of 00:00: mouth [place] 00 twice Medical daily as Branch needed for anxiety. lithium 2022-0 Yes [id number] 900mg Take 2 [facility] vers carbonate 1-04 tablets by ity of CR 450 mg 00:00: [place] SR tablet 00 bedtime. Medica l Branch DULoxetine 3-0 Yes [id number] 60mg Take 1 [facility] 60 mg 1-04 capsule by ity of capsule 00:00: mouth in [place] 00 the Medical morning Branch and 1 capsule in the evening. lamoTRIgine 3-0 Yes [id number] 100mg Take 1 [facility] 100 mg 1-04 tablet by ity of tablet 00:00: mouth in [place] 00 the Medical morning Branch and 1 tablet in the evening. traZODone 3-0 Yes [id number] 50mg Take 1 [facility] 50 mg 1-04 tablet by ity of tablet 00:00: mouth at [place] 00 bedtime. Medical May cut Branch tablet in half. clonazePAM 2022-0 Yes [id number] Take 1 [facility] nivers 1 mg tablet 1-04 tablet by ity of 00:00: mouth [place] 00 twice Medical daily as Branch needed for anxiety. lithium 2022-0 Yes [id number] 900mg Take 2 [facility] vers carbonate 1-04 tablets by it[facility] of CR 450 mg 00:00: [place] SR tablet 00 bedtime. Medica l Branch DULoxetine 2022-0 Yes [id number] 60mg Take 1 [facility]ivers 60 mg 1-04 capsule by ity of capsule 00:00: mouth in [place] 00 the Medical morning Branch and 1 capsule in the evening. traZODone 2022-0 Yes [id number] 50mg Take 1 [facility]ivers 50 mg 1-04 tablet by ity of tablet 00:00: mouth at [place] 00 bedtime. Medical May cut Branch tablet in half. clonazePAM 2022-0 Yes [id number] Take 1 [facility] 1 mg tablet 1-04 tablet by ity of 00:00: mouth [place] 00 twice Medical daily as Branch needed for anxiety. lithium 2022-0 Yes [id number] 900mg Take 2 [facility] vers carbonate 1-04 tablets by ity of CR 450 mg 00:00: mouth [place] SR tablet 00 bedtime. Medica l Branch DULoxetine 2022-0 Yes [id number] 60mg Take 1 [facility] 60 mg 1-04 capsule by ity of capsule 00:00: mouth in [place] 00 the Medical morning Branch and 1 capsule in the evening. traZODone 2022-0 Yes [id number] 50mg Take 1 [facility] 50 mg 1-04 tablet by ity of tablet 00:00: mouth at [place] 00 bedtime. Medical May cut Branch tablet in half. clonazePAM 2022-0 Yes [id number] Take 1 [facility] 1 mg tablet 1-04 tablet by ity of 00:00: mouth [place] 00 twice Medical daily as Branch needed for anxiety. lithium 2022-0 Yes [id number] 900mg Take 2 [facility] vers carbonate 1-04 tablets by ity of CR 450 mg 00:00: [place] SR tablet 00 bedtime. Medica l Branch DULoxetine 2022-0 Yes [id number] 60mg Take 1 [facility] nivers 60 mg 1-04 capsule by ity of capsule 00:00: mouth in [place] 00 the Medical morning Branch and 1 capsule in the evening. traZODone 2022-0 Yes [id number] 50mg Take 1 [facility]ivers 50 mg 1-04 tablet by ity of tablet 00:00: mouth at [place] 00 bedtime. Medical May cut Branch tablet in half. clonazePAM 2022-0 Yes [id number] Take 1 [facility] nivers 1 mg tablet 1-04 tablet by ity of 00:00: mouth [place] 00 twice Medical daily as Branch needed for anxiety. lithium 2022-0 Yes [id number] 900mg Take 2 [facility] vers carbonate 1-04 tablets by ity of CR 450 mg 00:00: mouth [place] SR tablet 00 bedtime. Medica l Branch DULoxetine 2022-0 Yes [id number] 60mg Take 1 [facility]ivers 60 mg 1-04 capsule by ity of capsule 00:00: mouth in [place] 00 the Medical morning Branch and 1 capsule in the evening. traZODone 2022-0 Yes [id number] 50mg Take 1 [facility]ivers 50 mg 1-04 tablet by ity of tablet 00:00: mouth at [place] 00 bedtime. Medical May cut Branch tablet in half. clonazePAM 2022-0 Yes [id number] Take 1 [facility] 1 mg tablet 1-04 tablet by ity of 00:00: mouth [place] 00 twice Medical daily as Branch needed for anxiety. lithium 2022-0 Yes [id number] 900mg Take 2 [facility] vers carbonate 1-04 tablets by ity of CR 450 mg 00:00: mouth [place] SR tablet 00 bedtime. Medica l Branch traZODone 2022-0 2022- No [id number] 50mg Take 1 [facility] 50 mg 1-04 -09 tablet by ity of tablet 00:00: 00:00 mouth at [place] 00 :00 bedtime. Medical May cut Branch tablet in half. lithium 2022-0 2022- No [id number] 900mg Take 2 Un cristhian carbonate 1-04 03-09 tablets by ity of CR 450 mg 00:00: 00:00 mouth at [place] 00 :00 bedtime. Medica l Branch traZODone 2022-0 2022- No [id number] 50mg Take 1 [facility] 50 mg 1-04 -09 tablet by ity of tablet 00:00: 00:00 mouth at [place] 00 :00 bedtime. Medical May cut Branch tablet in half. lithium 2022-0 2022- No [id number] 900mg Take 2 Un cristhian carbonate 02-15-09 tablets by ity of CR 450 mg 00:00: 00:00 mouth at [place] tablet 00 :00 bedtime. Medica l Branch DULoxetine 2022-0 2022- No [id number] 60mg Take 1 [facility] 60 mg 02-15-08 capsule by ity of capsule 00:00: 00:00 mouth in [place] 00 :00 the Medical morning Branch and 1 capsule in the evening. clonazePAM 2022-0 2022- No [id number] Take 1 [facility] 1 mg tablet 02-15 tablet by it y of 00:00: 00:00 mouth [place] 00 :00 twice Medical daily as Branch needed for anxiety. DULoxetine 2022-0 2022- No [id number] 60mg Take 1 [facility] 60 mg 02-15 capsule by ity of capsule 00:00: 00:00 mouth in [place] 00 :00 the Medical morning Branch and 1 capsule in the evening. clonazePAM 2022-0 2022- No [id number] Take 1 [facility] 1 mg tablet 02-15 tablet by it y of 00:00: 00:00 mouth [place] 00 :00 twice Medical daily as Branch needed for anxiety. lamoTRIgine 2022-0 2022- No [id number] 100mg Take 1 [facility] 100 mg 02-15 tablet by ity of tablet 00:00: 00:00 mouth in [place] 00 :00 the Medical morning Branch and 1 tablet in the evening. lamoTRIgine 3-0 3- No [id number] 100mg Take 1 [facility] 100 mg 02-15 tablet by ity of tablet 00:00: 00:00 mouth in [place] 00 :00 the Medical morning Branch and 1 tablet in the evening. lamoTRIgine 2023-0 3- No [id number] 100mg Take 1 [facility] 100 mg -05 13- tablet by ity of tablet 00:00: 00:00 mouth in [place] 00 :00 the Medical morning Branch and 1 tablet in the evening. lamoTRIgine 2023-0 3- No [id number] 100mg Take 1 [facility] 100 mg -03-09 tablet by ity of tablet 00:00: 00:00 mouth in [place] 00 :00 the Medical morning Branch and 1 tablet in the evening. lithium 600 3-0 3- No [id number] 600mg Take 1 [facility] mg capsule 02-15 capsule by it y of 00:00: 00:00 mouth in [place] 00 :00 the Medical morning Branch and 1 capsule in the evening. lithium 600 3-0 3- No [id number] 600mg Take 1 [facility] mg capsule 02-15 capsule by it y of 00:00: 00:00 mouth in [place] 00 :00 the Medical morning Branch and 1 capsule in the evening. lithium 600 2022-0 3- No [id number] 600mg Take 1 [facility] mg capsule 02-15 capsule by it y of 00:00: 00:00 mouth in [place] 00 :00 the Medical morning Branch and 1 capsule in the evening. lithium 600 2022-0 3- No [id number] 600mg Take 1 [facility] mg capsule 02-15 capsule by it y of 00:00: 00:00 mouth in [place] 00 :00 the Medical morning Branch and 1 capsule in the evening. lithium 600 2022-0 3- No [id number] 600mg Take 1 [facility] mg capsule 02-15 capsule by it y of 00:00: 00:00 mouth in [place] 00 :00 the Medical morning Branch and 1 capsule in the evening. lithium 600 3-0 3- No [id number] 600mg Take 1 [facility] mg capsule 02-15 capsule by it y of 00:00: 00:00 mouth in [place] 00 :00 the Medical morning Branch and 1 capsule in the evening. lithium 600 2022-0 3- No [id number] 600mg Take 1 [facility] mg capsule 02-15 capsule by it y of 00:00: 00:00 mouth in [place] 00 :00 the Medical morning Branch and 1 capsule in the evening. lithium 600 2022-0 3- No [id number] 600mg Take 1 [facility] mg capsule 02-15 capsule by it y of 00:00: 00:00 mouth in [place] 00 :00 the Medical morning Branch and 1 capsule in the evening. DULoxetine 2021-02 Yes [id number] 60mg Take 1 [facility] nivers 60 mg 2-28 capsule by ity of capsule 00:00: mouth in [place] 00 the Medical morning Branch and 1 capsule in the evening. DULoxetine 2021-02- No [id number] 60mg Take 1 [facility] 60 mg 2-28 -04 capsule by ity of capsule 00:00: 00:00 mouth in [place] 00 :00 the Medical morning Branch and 1 capsule in the evening. DULoxetine 2021-02- No [id number] 60mg Take 1 [facility] 60 mg 2-28 -04 capsule by ity of capsule 00:00: 00:00 mouth in [place] 00 :00 the Medical morning Branch and 1 capsule in the evening. DULoxetine 2021-02- No [id number] 60mg Take 1 [facility] 60 mg 2-28 -04 capsule by ity of capsule 00:00: 00:00 mouth in [place] 00 :00 the Medical morning Branch and 1 capsule in the evening. DULoxetine 2021-02- No [id number] 60mg Take 1 [facility] 60 mg 2-28 -04 capsule by ity of capsule 00:00: 00:00 mouth in [place] 00 :00 the Medical morning Branch and 1 capsule in the evening. DULoxetine 2021-02- No [id number] 60mg Take 1 [facility] 60 mg 2-11 03-04 capsule by ity of capsule 00:00: 00:00 mouth in [place] 00 :00 the Medical morning Branch and 1 capsule in the evening. DULoxetine 2021-02- No [id number] 60mg Take 1 [facility] 60 mg 2-28 -04 capsule by ity of capsule 00:00: 00:00 mouth in [place] 00 :00 the Medical morning Branch and 1 capsule in the evening. DULoxetine 2021-02- No [id number] 60mg Take 1 [facility] 60 mg 2-28 -04 capsule by ity of capsule 00:00: 00:00 mouth in [place] 00 :00 the Medical morning Branch and 1 capsule in the evening. DULoxetine 2021-02- No [id number] 60mg Take 1 [facility] 60 mg 2-28 -04 capsule by ity of capsule 00:00: 00:00 mouth in [place] 00 :00 the Medical morning Branch and 1 capsule in the evening. lamoTRIgine 2021-02 Yes [id number] 100mg Take 1 [facility] 100 mg 2-22 tablet by ity of tablet 00:00: mouth in [place] 00 the Medical morning Branch and 1 tablet in the evening. lamoTRIgine 2021-02 Yes [id number] 100mg Take 1 [facility] 100 mg 2-22 tablet by ity of tablet 00:00: mouth in [place] 00 the Medical morning Branch and 1 tablet in the evening. lamoTRIgine 2021-023- No [id number] 100mg Take 1 [facility] 100 mg 2-22 01-04 tablet by ity of tablet 00:00: 00:00 mouth in [place] 00 :00 the Medical morning Branch and 1 tablet in the evening. lamoTRIgine 2021-2022- No [id number] 100mg Take 1 [facility] 100 mg 2-22 -04 tablet by ity of tablet 00:00: 00:00 mouth in [place] 00 :00 the Medical morning Branch and 1 tablet in the evening. lamoTRIgine 2021-2022- No [id number] 100mg Take 1 [facility] 100 mg 2-22 -04 tablet by ity of tablet 00:00: 00:00 mouth in [place] 00 :00 the Medical morning Branch and 1 tablet in the evening. lamoTRIgine 2021-2022- No [id number] 100mg Take 1 [facility] 100 mg 2-22 -04 tablet by ity of tablet 00:00: 00:00 mouth in [place] 00 :00 the Medical morning Branch and 1 tablet in the evening. lamoTRIgine 2021-02- No [id number] 100mg Take 1 [facility] 100 mg 2-22 -04 tablet by ity of tablet 00:00: 00:00 mouth in [place] 00 :00 the Medical morning Branch and 1 tablet in the evening. lamoTRIgine 2021-02- No [id number] 100mg Take 1 [facility] 100 mg 2-22 -04 tablet by ity of tablet 00:00: 00:00 mouth in [place] 00 :00 the Medical morning Branch and 1 tablet in the evening. lamoTRIgine 2021-3- No [id number] 100mg Take 1 [facility] 100 mg 2-22 -04 tablet by ity of tablet 00:00: 00:00 mouth in [place] 00 :00 the Medical morning Branch and 1 tablet in the evening. lamoTRIgine 2021-3- No [id number] 100mg Take 1 [facility] 100 mg 2-22 -04 tablet by ity of tablet 00:00: 00:00 mouth in [place] 00 :00 the Medical morning Branch and 1 tablet in the evening. traZODone 2021-02 Yes [id number] 50mg Take 1 [facility] 50 mg 1-30 tablet by ity of tablet 00:00: mouth at [place] 00 bedtime. Medical May cut Branch tablet in half. lamoTRIgine 2021-02 Yes [id number] 100mg Take 1 [facility] 100 mg 1-30 tablet by ity of tablet 00:00: mouth in [place] 00 the Medical morning Branch and 1 tablet in the evening. traZODone 2021-02 Yes [id number] 50mg Take 1 [facility] 50 mg 1-30 tablet by ity of tablet 00:00: mouth at [place] 00 bedtime. Medical May cut Branch tablet in half. lamoTRIgine 2021-02 Yes [id number] 100mg Take 1 [facility] 100 mg 1-30 tablet by ity of tablet 00:00: mouth in [place] 00 the Medical morning Branch and 1 tablet in the evening. traZODone 2021-02 Yes [id number] 50mg Take 1 [facility] 50 mg 1-30 tablet by ity of tablet 00:00: mouth at [place] 00 bedtime. Medical May cut Branch tablet in half. lamoTRIgine 2021-02 Yes [id number] 100mg Take 1 [facility] 100 mg 1-30 tablet by ity of tablet 00:00: mouth in [place] 00 the Medical morning Branch and 1 tablet in the evening. traZODone 2021-02 Yes [id number] 50mg Take 1 [facility] 50 mg 1-30 tablet by ity of tablet 00:00: mouth at [place] 00 bedtime. Medical May cut Branch tablet in half. traZODone 2021-02 Yes [id number] 50mg Take 1 [facility] nivers 50 mg 1-30 tablet by ity of tablet 00:00: mouth at [place] 00 bedtime. Medical May cut Branch tablet in half. traZODone 2021-02- No [id number] 50mg Take 1 [facility] 50 mg 1-30 -04 tablet by ity of tablet 00:00: 00:00 mouth at [place] 00 :00 bedtime. Medical May cut Branch tablet in half. traZODone 2021-02- No [id number] 50mg Take 1 [facility] 50 mg 1-30 -04 tablet by ity of tablet 00:00: 00:00 mouth at [place] 00 :00 bedtime. Medical May cut Branch tablet in half. traZODone 2021-02- No [id number] 50mg Take 1 [facility] 50 mg 1-30 -04 tablet by ity of tablet 00:00: 00:00 mouth at [place] 00 :00 bedtime. Medical May cut Branch tablet in half. traZODone 2021-02- No [id number] 50mg Take 1 [facility] 50 mg 1-30 -04 tablet by ity of tablet 00:00: 00:00 mouth at [place] 00 :00 bedtime. Medical May cut Branch tablet in half. traZODone 2021-02- No [id number] 50mg Take 1 [facility] 50 mg 1-30 -04 tablet by ity of tablet 00:00: 00:00 mouth at [place] 00 :00 bedtime. Medical May cut Branch tablet in half. traZODone 2021-02- No [id number] 50mg Take 1 [facility] 50 mg 1-30 -04 tablet by ity of tablet 00:00: 00:00 mouth at [place] 00 :00 bedtime. Medical May cut Branch tablet in half. traZODone 2021-02- No [id number] 50mg Take 1 [facility] 50 mg 1-30 -04 tablet by ity of tablet 00:00: 00:00 mouth at [place] 00 :00 bedtime. Medical May cut Branch tablet in half. traZODone 2021-02- No [id number] 50mg Take 1 [facility] 50 mg 1-30 -04 tablet by ity of tablet 00:00: 00:00 mouth at [place] 00 :00 bedtime. Medical May cut Branch tablet in half. lamoTRIgine 2021-02- No [id number] 100mg Take 1 [facility] 100 mg 1-30 12-22 tablet by ity of tablet 00:00: 00:00 mouth in [place] 00 :00 the Medical morning Branch and 1 tablet in the evening. lamoTRIgine 2021-02- No [id number] 100mg Take 1 [facility] 100 mg 1-30 12-22 tablet by ity of tablet 00:00: 00:00 mouth in [place] 00 :00 the Medical morning Branch and 1 tablet in the evening. lamoTRIgine 2021-02- No [id number] 100mg Take 1 [facility] 100 mg 1-30 12-22 tablet by ity of tablet 00:00: 00:00 mouth in [place] 00 :00 the Medical morning Branch and 1 tablet in the evening. lamoTRIgine 2021-02- No [id number] 100mg Take 1 [facility] 100 mg 1-30 12-22 tablet by ity of tablet 00:00: 00:00 mouth in [place] 00 :00 the Medical morning Branch and 1 tablet in the evening. lamoTRIgine 2021-02- No [id number] 100mg Take 1 [facility] 100 mg 1-30 12-22 tablet by ity of tablet 00:00: 00:00 mouth in [place] 00 :00 the Medical morning Branch and 1 tablet in the evening. DULoxetine 2021-02 Yes [id number] 60mg Take 1 [facility] 60 mg 1-28 capsule by [facility] capsule 00:00: mouth in [place] 00 the Medical morning Branch and 1 capsule in the evening. clonazePAM 2021-02 Yes [id number] Take 1 [facility] 1 mg tablet 1-28 tablet by [facility] of 00:00: mouth [place] 00 twice Medical daily as Branch needed for anxiety. DULoxetine 2021-02 Yes [id number] 60mg Take 1 [facility] 60 mg 1-28 capsule by [facility] capsule 00:00: mouth in [place] 00 the Medical morning Branch and 1 capsule in the evening. clonazePAM 2021-02 Yes [id number] Take 1 [facility] 1 mg tablet 1-28 tablet by [facility] of 00:00: mouth [place] 00 twice Medical daily as Branch needed for anxiety. DULoxetine 2021-02 Yes [id number] 60mg Take 1 [facility] 60 mg 1-28 capsule by [facility] capsule 00:00: mouth in [place] 00 the Medical morning Branch and 1 capsule in the evening. clonazePAM 2021-02 Yes [id number] Take 1 [facility] 1 mg tablet 1-28 tablet by [facility] of 00:00: mouth [place] 00 twice Medical daily as Branch needed for anxiety. DULoxetine 2021-02 Yes [id number] 60mg Take 1 [facility] 60 mg 1-28 capsule by [facility] capsule 00:00: mouth in [place] 00 the Medical morning Branch and 1 capsule in the evening. clonazePAM 2021-02 Yes [id number] Take 1 [facility] 1 mg tablet 1-28 tablet by [facility] of 00:00: mouth [place] 00 twice Medical daily as Branch needed for anxiety. DULoxetine 2021-02 Yes [id number] 60mg Take 1 [facility] 60 mg 1-28 capsule by [facility] capsule 00:00: mouth in [place] 00 the Medical morning Branch and 1 capsule in the evening. clonazePAM 2021-02 Yes [id number] Take 1 [facility] 1 mg tablet 1-28 tablet by [facility] of 00:00: mouth [place] 00 twice Medical daily as Branch needed for anxiety. DULoxetine 2021-02 Yes [id number] 60mg Take 1 [facility] 60 mg 1-28 capsule by [facility] capsule 00:00: mouth in [place] 00 the Medical morning Branch and 1 capsule in the evening. clonazePAM 2021-02 Yes [id number] Take 1 [facility] 1 mg tablet 1-28 tablet by [facility] of 00:00: mouth [place] 00 twice Medical daily as Branch needed for anxiety. clonazePAM 2021-02 Yes [id number] Take 1 [facility] 1 mg tablet 1-28 tablet by [facility] of 00:00: mouth [place] 00 twice Medical daily as Branch needed for anxiety. clonazePAM 2021-02- No [id number] Take 1 [facility] 1 mg tablet 03-11 tablet by it y of 00:00: 00:00 mouth [place] 00 :00 twice Medical daily as Branch needed for anxiety. clonazePAM 2021-02- No [id number] Take 1 [facility] 1 mg tablet 03-11 tablet by it y of 00:00: 00:00 mouth [place] 00 :00 twice Medical daily as Branch needed for anxiety. clonazePAM 2021-02- No [id number] Take 1 [facility] 1 mg tablet 03-11 tablet by it y of 00:00: 00:00 mouth [place] 00 :00 twice Medical daily as Branch needed for anxiety. clonazePAM 2021-02- No [id number] Take 1 [facility] 1 mg tablet 03-11- tablet by it y of 00:00: 00:00 mouth [place] 00 :00 twice Medical daily as Branch needed for anxiety. clonazePAM 2021-02- No [id number] Take 1 [facility] 1 mg tablet 03-11- tablet by it y of 00:00: 00:00 mouth [place] 00 :00 twice Medical daily as Branch needed for anxiety. clonazePAM 2021-02- No [id number] Take 1 [facility] 1 mg tablet 03-11 tablet by it y of 00:00: 00:00 mouth [place] 00 :00 twice Medical daily as Branch needed for anxiety. clonazePAM 2021-02- No [id number] Take 1 [facility] 1 mg tablet 03-11 tablet by it y of 00:00: 00:00 mouth [place] 00 :00 twice Medical daily as Branch needed for anxiety. clonazePAM 2021-02- No [id number] Take 1 [facility] 1 mg tablet 03-11 tablet by it y of 00:00: 00:00 mouth [place] 00 :00 twice Medical daily as Branch needed for anxiety. DULoxetine 2021-02- No [id number] 60mg Take 1 [facility] 60 mg 1-28 12-27 capsule by [facility] of capsule 00:00: 00:00 mouth in [place] 00 :00 the Medical morning Branch and 1 capsule in the evening. DULoxetine 2021-02- No [id number] 60mg Take 1 [facility] 60 mg 1-28 12-27 capsule by [facility] capsule 00:00: 00:00 mouth in [place] 00 :00 the Medical morning Branch and 1 capsule in the evening. DULoxetine 2021-02- No [id number] 60mg Take 1 [facility] 60 mg 1-28 12-27 capsule by [facility] capsule 00:00: 00:00 mouth in [place] 00 :00 the Medical morning Branch and 1 capsule in the evening. DULoxetine 2021-02- No [id number] 60mg Take 1 [facility] 60 mg 1-28 12-27 capsule by [facility] capsule 00:00: 00:00 mouth in [place] 00 :00 the Medical morning Branch and 1 capsule in the evening. DULoxetine 2021-02- No [id number] 60mg Take 1 [facility] 60 mg 1-28 12-27 capsule by [facility] of capsule 00:00: 00:00 mouth in [place] 00 :00 the Medical morning Branch and 1 capsule in the evening. traZODone 2021-02 Yes [id number] 50mg Take 1 [facility] 50 mg 1-22 tablet by [facility] tablet 00:00: mouth at [place] 00 bedtime. Medical May cut Branch tablet in half. traZODone 2021-02 Yes [id number] 50mg Take 1 [facility] 50 mg 1-22 tablet by [facility] tablet 00:00: mouth at [place] 00 bedtime. Medical May cut Branch tablet in half. traZODone 2021-02 Yes [id number] 50mg Take 1 [facility] 50 mg 1-22 tablet by [facility] tablet 00:00: mouth at [place] 00 bedtime. Medical May cut Branch tablet in half. traZODone 2021-02- No [id number] 50mg Take 1 [facility] 50 mg 1-22 11-30 tablet by [facility] tablet 00:00: 00:00 mouth at [place] 00 :00 bedtime. Medical May cut Branch tablet in half. traZODone 2021-02- No [id number] 50mg Take 1 [facility] 50 mg 1-22 11-30 tablet by [facility] of tablet 00:00: 00:00 mouth at [place] 00 :00 bedtime. Medical May cut Branch tablet in half. traZODone 2021-02- No [id number] 50mg Take 1 [facility] 50 mg 1-22 11-30 tablet by [facility] tablet 00:00: 00:00 mouth at [place] 00 :00 bedtime. Medical May cut Branch tablet in half. traZODone 2021-02- No [id number] 50mg Take 1 [facility] 50 mg 1-22 11-30 tablet by [facility] of tablet 00:00: 00:00 mouth at [place] 00 :00 bedtime. Medical May cut Branch tablet in half. traZODone 2021-02- No [id number] 50mg Take 1 [facility] 50 mg 1-22 11-30 tablet by [facility] of tablet 00:00: 00:00 mouth at [place] 00 :00 bedtime. Medical May cut Branch tablet in half. DULoxetine 2021-02 Yes [id number] 60mg Take 1 [facility] 60 mg 0-25 capsule by [facility] capsule 00:00: mouth in [place] 00 the Medical morning Branch and 1 capsule in the evening. DULoxetine 2021-02 Yes [id number] 60mg Take 1 [facility] 60 mg 0-25 capsule by [facility] capsule 00:00: mouth in [place] 00 the Medical morning Branch and 1 capsule in the evening. DULoxetine 2021-02 Yes [id number] 60mg Take 1 [facility] 60 mg 0-25 capsule by [facility] capsule 00:00: mouth in [place] 00 the Medical morning Branch and 1 capsule in the evening. DULoxetine 2021-02- No [id number] 60mg Take 1 [facility] 60 mg 0-25 11-28 capsule by [facility] capsule 00:00: 00:00 mouth in [place] 00 :00 the Medical morning Branch and 1 capsule in the evening. DULoxetine 2021-02- No [id number] 60mg Take 1 [facility] 60 mg 0-25 11-28 capsule by [facility] capsule 00:00: 00:00 mouth in [place] 00 :00 the Medical morning Branch and 1 capsule in the evening. DULoxetine 2021-02- No [id number] 60mg Take 1 [facility] 60 mg 0-25 11-28 capsule by [facility] capsule 00:00: 00:00 mouth in [place] 00 :00 the Medical morning Branch and 1 capsule in the evening. DULoxetine 2021-02- No [id number] 60mg Take 1 [facility] 60 mg 0-25 11-28 capsule by [facility] capsule 00:00: 00:00 mouth in [place] 00 :00 the Medical morning Branch and 1 capsule in the evening. DULoxetine 2021-02- No [id number] 60mg Take 1 [facility] 60 mg 0-25 11-28 capsule by [facility] of capsule 00:00: 00:00 mouth in [place] 00 :00 the Medical morning Branch and 1 capsule in the evening. clonazePAM 2021-02 Yes [id number] Take 1 [facility] 1 mg tablet 0-20 tablet by [facility] of 00:00: mouth [place] [address] twice Medical daily as Branch needed for anxiety. lithium 600 2021-02 Yes [id number] 600mg Take 1 [facility] mg capsule 0-20 capsule by [facility] of 00:00: mouth in [place] 00 the Medical morning Branch and 1 capsule in the evening. lamoTRIgine 2021-02 Yes [id number] 50mg Take 2 [facility] 25 mg 0-20 tablets by [facility] tablet 00:00: mouth in [place] 00 the Medical morning Branch and 2 tablets in the evening. clonazePAM 2021-02 Yes [id number] Take 1 [facility] 1 mg tablet 0-20 tablet by [facility] of 00:00: mouth [place] 00 twice Medical daily as Branch needed for anxiety. lithium 600 2021-02 Yes [id number] 600mg Take 1 [facility] mg capsule 0-20 capsule by [facility] of 00:00: mouth in [place] 00 the Medical morning Branch and 1 capsule in the evening. lamoTRIgine 2021-02 Yes [id number] 50mg Take 2 [facility] 25 mg 0-20 tablets by [facility] of tablet 00:00: mouth in [place] [address] the [facility] and 2 tablets in the evening. clonazePAM 2021-02 Yes [id number] Take 1 [facility] 1 mg tablet 0-20 tablet by [facility] of 00:00: mouth [place] [address] twice Medical daily as Branch needed for anxiety. lithium 600 2021-02 Yes [id number] 600mg Take 1 [facility] mg capsule 0-20 capsule by [facility] of 00:00: mouth in [address] and 1 capsule in the evening. lamoTRIgine 2021-02 Yes [id number] 50mg Take 2 [facility] 25 mg 0-20 tablets by it[facility] of tablet 00:00: mouth in [address] and 2 tablets in the evening. lithium 600 2021-02 Yes [id number] 600mg Take 1 [facility] mg capsule 0-20 capsule by [facility] of 00:00: mouth in [address] and 1 capsule in the evening. lamoTRIgine 2021-02 Yes [id number] 50mg Take 2 [facility] 25 mg 0-20 tablets by [facility] of tablet 00:00: mouth in [address] and 2 tablets in the evening. lithium 600 2021-02 Yes [id number] 600mg Take 1 [facility] mg capsule 0-20 capsule by [facility] of 00:00: mouth in [address] and 1 capsule in the evening. lamoTRIgine 2021-02 Yes [id number] 50mg Take 2 [facility] 25 mg 0-20 tablets by [facility] of tablet 00:00: mouth in [address] and 2 tablets in the evening. lithium 600 2021-02 Yes [id number] 600mg Take 1 [facility] mg capsule 0-20 capsule by [facility] of 00:00: mouth in [address] and 1 capsule in the evening. lithium 600 1 Yes [id number] 600mg Take 1 [facility] mg capsule 0-20 capsule by [facility] of 00:00: mouth in [address] and 1 capsule in the evening. lithium 600 2021- Yes [id number] 600mg Take 1 [facility] mg capsule 0-20 capsule by [facility] of 00:00: mouth in [address] and 1 capsule in the evening. lithium 600 1 Yes [id number] 600mg Take 1 [facility] mg capsule 0-20 capsule by [facility] of 00:00: mouth in [place] 00 the Medical morning Branch and 1 capsule in the evening. lithium 600 2021-1 Yes [id number] 600mg Take 1 [facility] mg capsule 0-20 capsule by [facility] of 00:00: mouth in [place] 00 the Medical morning Branch and 1 capsule in the evening. lithium 600 2021-2022- No [id number] 600mg Take 1 [facility] mg capsule 0-20 01-04 capsule by it y of 00:00: 00:00 mouth in [place] 00 :00 the Medical morning Branch and 1 capsule in the evening. lithium 600 2021-2022- No [id number] 600mg Take 1 [facility] mg capsule 0-20 01-04 capsule by it y of 00:00: 00:00 mouth in [place] 00 :00 the Medical morning Branch and 1 capsule in the evening. lithium 600 2021-2022- No [id number] 600mg Take 1 [facility] mg capsule 0-20 01-04 capsule by it y of 00:00: 00:00 mouth in [place] 00 :00 the Medical morning Branch and 1 capsule in the evening. lithium 600 2021-2022- No [id number] 600mg Take 1 [facility] mg capsule 0-20 01-04 capsule by it y of 00:00: 00:00 mouth in [place] 00 :00 the Medical morning Branch and 1 capsule in the evening. lithium 600 2021-2022- No [id number] 600mg Take 1 [facility] mg capsule 0-20 01-04 capsule by it y of 00:00: 00:00 mouth in [place] 00 :00 the Medical morning Branch and 1 capsule in the evening. lithium 600 2021-3- No [id number] 600mg Take 1 [facility] mg capsule 0-20 01-04 capsule by it y of 00:00: 00:00 mouth in [place] 00 :00 the Medical morning Branch and 1 capsule in the evening. lithium 600 2021-3- No [id number] 600mg Take 1 [facility] mg capsule 0-20 01-04 capsule by it y of 00:00: 00:00 mouth in [place] 00 :00 the Medical morning Branch and 1 capsule in the evening. lithium 600 2021-3- No [id number] 600mg Take 1 [facility] mg capsule 0-20 01-04 capsule by it y of 00:00: 00:00 mouth in [place] 00 :00 the Medical morning Branch and 1 capsule in the evening. lamoTRIgine 2021-02- No [id number] 50mg Take 2 [facility] 25 mg 0-20 11-30 tablets by it[facility] of tablet 00:00: 00:00 mouth in [place] 00 :00 the Medical morning Branch and 2 tablets in the evening. lamoTRIgine 2021-02- No [id number] 50mg Take 2 [facility] 25 mg 0-20 11-30 tablets by it[facility] of tablet 00:00: 00:00 mouth in [place] 00 :00 the Medical morning Branch and 2 tablets in the evening. lamoTRIgine 2021-02- No [id number] 50mg Take 2 [facility] 25 mg 0-20 11-30 tablets by it[facility] of tablet 00:00: 00:00 mouth in [place] 00 :00 the Medical morning Branch and 2 tablets in the evening. lamoTRIgine 2021-02- No [id number] 50mg Take 2 [facility] 25 mg 0-20 11-30 tablets by ity of tablet 00:00: 00:00 mouth in [place] 00 :00 the Medical morning Branch and 2 tablets in the evening. lamoTRIgine 2021-02- No [id number] 50mg Take 2 [facility] 25 mg 0-20 11-30 tablets by ity of tablet 00:00: 00:00 mouth in [place] 00 :00 the Medical morning Branch and 2 tablets in the evening. clonazePAM 2021-02- No [id number] Take 1 [facility] 1 mg tablet 0-20 11-28 tablet by it y of 00:00: 00:00 mouth [place] 00 :00 twice Medical daily as Branch needed for anxiety. clonazePAM 2021-02- No [id number] Take 1 [facility] 1 mg tablet 0-20 11-28 tablet by it y of 00:00: 00:00 mouth [place] 00 :00 twice Medical daily as Branch needed for anxiety. clonazePAM 2021-02- No [id number] Take 1 [facility] 1 mg tablet 0-20 11-28 tablet by it y of 00:00: 00:00 mouth [place] 00 :00 twice Medical daily as Branch needed for anxiety. clonazePAM 2021-02- No [id number] Take 1 [facility] 1 mg tablet 0-20 11-28 tablet by it y of 00:00: 00:00 mouth [place] 00 :00 twice Medical daily as Branch needed for anxiety. clonazePAM 2021-02- No [id number] Take 1 [facility] 1 mg tablet 0-20 11-28 tablet by it y of 00:00: 00:00 mouth [place] 00 :00 twice Medical daily as Branch needed for anxiety. lamoTRIgine 2021-0 Yes [id number] 50mg Take 2 [facility] 25 mg 8-26 tablets by [facility] of tablet 00:00: mouth in [place] 00 the Medical morning Branch and 2 tablets in the evening. lamoTRIgine 2021-2021- No [id number] 50mg Take 2 [facility] 25 mg 8-26 10-19 tablets by it[facility] of tablet 00:00: 00:00 mouth in [place] 00 :00 the Medical morning Branch and 2 tablets in the evening. lamoTRIgine 2021- No [id number] 50mg Take 2 [facility] 25 mg 8-26 10-19 tablets by ity of tablet 00:00: 00:00 mouth in [place] 00 :00 the Medical morning Branch and 2 tablets in the evening. clonazePAM 2021-0 Yes [id number] Take no [facility] 1 mg tablet 8-25 more than ity of 00:00: 1 mg twice [place] 00 daily as Medical needed for Branch anxiety lithium 600 2021-0 Yes [id number] 600mg Take 1 [facility] mg capsule 8-25 capsule by ity of 00:00: mouth in [place] 00 the Medical morning Branch and 1 capsule in the evening. clonazePAM 2021-0 2021- No [id number] Take no [facility] 1 mg tablet 8-25 10-19 more than it y of 00:00: 00:00 1 mg twice [place] 00 :00 daily as Medical needed for Branch anxiety lithium 600 2021-0 2021- No [id number] 600mg Take 1 [facility] mg capsule 8-25 10-19 capsule by it y of 00:00: 00:00 mouth in [place] 00 :00 the Medical morning Branch and 1 capsule in the evening. clonazePAM 2021-0 2021- No [id number] Take no [facility] 1 mg tablet 8-25 10-19 more than it y of 00:00: 00:00 1 mg twice [place] 00 :00 daily as Medical needed for Branch anxiety lithium 600 2021-0 2021- No [id number] 600mg Take 1 [facility] mg capsule 8-25 10-19 capsule by it y of 00:00: 00:00 mouth in [place] 00 :00 the Medical morning Branch and 1 capsule in the evening. Lamotrigine 2021-2021- No [id number] 50mg Take 1 [facility] 50 mg 8-25 08-26 tablet by it[facility] of tablet 00:00: 00:00 mouth in [place] 00 :00 the Medical morning Branch and 1 tablet in the evening. Lamotrigine 2021-2021- No [id number] 50mg Take 1 [facility] 50 mg 8- 08-25 tablet by ity of tablet 00:00: 00:00 mouth in [place] 00 :00 the Medical morning Branch and 1 tablet in the evening. DULoxetine 2021- Yes [id number] 60mg Take 1 [facility] 60 mg 7-27 capsule by [facility] of capsule 00:00: mouth in [place] 00 the Medical morning Branch and 1 capsule in the evening. DULoxetine 2021-2021- No [id number] 60mg Take 1 [facility] 60 mg 7-27 10-24 capsule by [facility] of capsule 00:00: 00:00 mouth in [place] 00 :00 the Medical morning Branch and 1 capsule in the evening. DULoxetine 2021-2021- No [id number] 60mg Take 1 [facility] 60 mg 7-27 10-24 capsule by [facility] of capsule 00:00: 00:00 mouth in [place] 00 :00 the Medical morning Branch and 1 capsule in the evening. DULoxetine 2021-2021- No [id number] 60mg Take 1 [facility] 60 mg 7-27 10-24 capsule by it[facility] of capsule 00:00: 00:00 mouth in [place] 00 :00 the Medical morning Branch and 1 capsule in the evening. Lamotrigine 2021-0 2021- No [id number] 50mg Take 1 [facility] 50 mg 7-18 08-11 tablet by [facility] of tablet 00:00: 00:00 mouth in [place] 00 :00 the Medical morning Branch and 1 tablet in the evening. lithium 600 2021-0 2021- No [id number] 600mg Take 1 [facility] mg capsule 7-13 08-25 capsule by it y of 00:00: 00:00 mouth in [place] 00 :00 the Medical morning Branch and 1 capsule in the evening. traZODone 2021-0 Yes [id number] 50mg Take 1 [facility] 50 mg 6-28 tablet by [facility] of tablet 00:00: mouth at [place] 00 bedtime. Medical May cut Branch tablet in half. DULoxetine 2021-0 Yes [id number] 60mg Take 1 [facility] 60 mg 6-28 capsule by [facility]y of capsule 00:00: mouth 2 [place] (two) Medical times Branch daily. traZODone 2021-0 Yes [id number] 50mg Take 1 [facility] 50 mg 6-28 tablet by ity of tablet 00:00: mouth at [place] 00 bedtime. Medical May cut Branch tablet in half. DULoxetine 2021-0 Yes [id number] 60mg Take 1 [facility] 60 mg 6-28 capsule by [facility] of capsule 00:00: mouth 2 [place] (two) Medical times Branch daily. traZODone 2021-0 Yes [id number] 50mg Take 1 [facility] 50 mg 6-28 tablet by [facility] of tablet 00:00: mouth at [place] [address] bedtime. Medical May cut Branch tablet in half. DULoxetine 2021-0 Yes [id number] 60mg Take 1 [facility] 60 mg 6-28 capsule by [facility] of capsule 00:00: mouth 2 [place] (two) Medical times Branch daily. DULoxetine 2021-0 Yes [id number] 60mg Take 1 [facility] 60 mg 6-28 capsule by [facility] of capsule 00:00: mouth 2 [place] (two) Medical times Branch daily. traZODone 2021-0 2021- No [id number] 50mg Take 1 [facility] 50 mg 6-28 11-21 tablet by ity of tablet 00:00: 00:00 mouth at [place] 00 :00 bedtime. Medical May cut Branch tablet in half. traZODone 2021-0 2021- No [id number] 50mg Take 1 [facility] 50 mg 6-28 11-21 tablet by ity of tablet 00:00: 00:00 mouth at [place] 00 :00 bedtime. Medical May cut Branch tablet in half. traZODone 2021-0 2021- No [id number] 50mg Take 1 [facility] 50 mg 6-28 11-21 tablet by ity of tablet 00:00: 00:00 mouth at [place] 00 :00 bedtime. Medical May cut Branch tablet in half. traZODone 2021-0 2021- No [id number] 50mg Take 1 [facility] 50 mg 6-28 11-21 tablet by ity of tablet 00:00: 00:00 mouth at [place] 00 :00 bedtime. Medical May cut Branch tablet in half. traZODone 2021- No [id number] 50mg Take 1 [facility] 50 mg 6-28 11-21 tablet by ity of tablet 00:00: 00:00 mouth at [place] 00 :00 bedtime. Medical May cut Branch tablet in half. clonazePAM 2021- No [id number] Take no [facility] 1 mg tablet 6-28 08-25 more than it y of 00:00: 00:00 1 mg twice [place] 00 :00 daily as Medical needed for Branch anxiety vitamin Yes [id number] 1000ug Take 1 [facility] nivers B-12 1,000 4-11 tablet by ity of mcg tablet 00:00: mouth [place] 00 daily. Medical Branch cyanocobala Yes [id number] 1000ug 1 mL by [facility] min 1,000 4-11 [facility] of mcg/mL 00:00: lar route [place] injection 00 weekly. Medical Branch vitamin 0 Yes [id number] 1000ug Take 1 [facility] nivers B-12 1,000 4-11 tablet by ity of mcg tablet 00:00: mouth [place] 00 daily. Medical Branch cyanocobala Yes [id number] 1000ug 1 mL by [facility] min 1,000 4-11 [facility]y of mcg/mL 00:00: lar route [place] injection 00 weekly. Medical Branch vitamin 2021-0 Yes [id number] 1000ug Take 1 [facility] nivers B-12 1,000 4-11 tablet by ity of mcg tablet 00:00: mouth [place] 00 daily. Medical Branch cyanocobala 0 Yes [id number] 1000ug 1 mL by [facility] min 1,000 4-11 [facility] ity of mcg/mL 00:00: lar route [place] injection 00 weekly. Medical Branch vitamin 0 Yes [id number] 1000ug Take 1 [facility] nivers B-12 1,000 4-11 tablet by ity of mcg tablet 00:00: mouth [place] 00 daily. Medical Branch cyanocobala Yes [id number] 1000ug 1 mL by [facility] min 1,000 4-11 [facility] ity of mcg/mL 00:00: lar route [place] injection 00 weekly. Medical Branch vitamin 2021-0 Yes [id number] 1000ug Take 1 [facility] nivers B-12 1,000 4-11 tablet by ity of mcg tablet 00:00: mouth [place] 00 daily. Medical Branch cyanocobala 2021-0 Yes [id number] 1000ug 1 mL by [facility] min 1,000 4-11 [facility] ity of mcg/mL 00:00: lar route [place] injection 00 weekly. Medical Branch vitamin 2021-0 Yes [id number] 1000ug Take 1 [facility] nivers B-12 1,000 4-11 tablet by ity of mcg tablet 00:00: mouth [place] 00 daily. Medical Branch cyanocobala 2021-0 Yes [id number] 1000ug 1 mL by [facility] min 1,000 4-11 [facility] ity of mcg/mL 00:00: lar route [place] injection 00 weekly. Medical Branch vitamin 2021-0 Yes [id number] 1000ug Take 1 [facility] nivers B-12 1,000 4-11 tablet by ity of mcg tablet 00:00: mouth [place] 00 daily. Medical Branch cyanocobala 2021-0 Yes [id number] 1000ug 1 mL by [facility] min 1,000 4-11 [facility] ity of mcg/mL 00:00: lar route [place] injection 00 weekly. Medical Branch vitamin 2021-0 Yes [id number] 1000ug Take 1 [facility] nivers B-12 1,000 4-11 tablet by ity of mcg tablet 00:00: mouth [place] 00 daily. Medical Branch cyanocobala 2021-0 Yes [id number] 1000ug 1 mL by [facility] min 1,000 4-11 [facility]y of mcg/mL 00:00: lar route [place] injection 00 weekly. Medical Branch vitamin 2021-0 Yes [id number] 1000ug Take 1 [facility] nivers B-12 1,000 4-11 tablet by ity of mcg tablet 00:00: mouth [place] 00 daily. Medical Branch cyanocobala 2021-0 Yes [id number] 1000ug 1 mL by [facility] min 1,000 4-11 [facility] of mcg/mL 00:00: lar route [place] injection 00 weekly. Medical Branch vitamin 2-0 Yes [id number] 1000ug Take 1 [facility] nivers B-12 1,000 4-11 tablet by ity of mcg tablet 00:00: mouth [place] 00 daily. Medical Branch cyanocobala 2021-0 Yes [id number] 1000ug 1 mL by [facility] min 1,000 4-11 [facility] ity of mcg/mL 00:00: lar route [place] injection 00 weekly. Medical Branch vitamin 2021-0 Yes [id number] 1000ug Take 1 [facility] nivers B-12 1,000 4-11 tablet by ity of mcg tablet 00:00: mouth [place] 00 daily. Medical Branch cyanocobala 2021-0 Yes [id number] 1000ug 1 mL by [facility] min 1,000 4-11 [facility]y of mcg/mL 00:00: lar route [place] injection 00 weekly. Medical Branch vitamin 2021-0 Yes [id number] 1000ug Take 1 [facility] nivers B-12 1,000 4-11 tablet by ity of mcg tablet 00:00: mouth [place] 00 daily. Medical Branch cyanocobala 2021-0 Yes [id number] 1000ug 1 mL by [facility] min 1,000 4-11 [facility] of mcg/mL 00:00: lar route [place] injection 00 weekly. Medical Branch vitamin 2021-0 Yes [id number] 1000ug Take 1 [facility] nivers B-12 1,000 4-11 tablet by ity of mcg tablet 00:00: mouth [place] 00 daily. Medical Branch cyanocobala 2021-0 Yes [id number] 1000ug 1 mL by [facility] min 1,000 4-11 [facility] of mcg/mL 00:00: lar route [place] injection 00 weekly. Medical Branch vitamin 2021-0 Yes [id number] 1000ug Take 1 [facility] nivers B-12 1,000 4-11 tablet by ity of mcg tablet 00:00: mouth [place] 00 daily. Medical Branch cyanocobala 2021-0 Yes [id number] 1000ug 1 mL by [facility] min 1,000 4-11 [facility]y of mcg/mL 00:00: lar route [place] injection 00 weekly. [facility] Branch vitamin 2021-0 Yes [id number] 1000ug Take 1 U nivers B-12 1,000 4-11 tablet by ity of mcg tablet 00:00: mouth [place] 00 daily. [facility] Branch cyanocobala 2021-0 Yes [id number] 1000ug 1 mL by [facility] min 1,000 4-11 [facility] ity of mcg/mL 00:00: lar route [place] injection 00 weekly. Medical Branch vitamin 2021-0 Yes [id number] 1000ug Take 1 [facility] nivers B-12 1,000 4-11 tablet by ity of mcg tablet 00:00: mouth [place] 00 daily. Medical Branch cyanocobala 2021-0 Yes [id number] 1000ug 1 mL by [facility] min 1,000 4-11 [facility] of mcg/mL 00:00: lar route [place] injection 00 weekly. Medical Branch vitamin 2021-0 Yes [id number] 1000ug Take 1 [facility] nivers B-12 1,000 4-11 tablet by ity of mcg tablet 00:00: mouth [place] 00 daily. Medical Branch cyanocobala 2021-0 Yes [id number] 1000ug 1 mL by [facility] min 1,000 4-11 [facility]y of mcg/mL 00:00: lar route [place] injection 00 weekly. Medical Branch vitamin 2021-0 Yes [id number] 1000ug Take 1 [facility] nivers B-12 1,000 4-11 tablet by ity of mcg tablet 00:00: mouth [place] 00 daily. Medical Branch cyanocobala 2021-0 Yes [id number] 1000ug 1 mL by [facility] min 1,000 4-11 [facility]y of mcg/mL 00:00: lar route [place] injection 00 weekly. Medical Branch vitamin 2021-0 Yes [id number] 1000ug Take 1 [facility] nivers B-12 1,000 4-11 tablet by ity of mcg tablet 00:00: mouth [place] 00 daily. Medical Branch cyanocobala 2021-0 Yes [id number] 1000ug 1 mL by [facility] min 1,000 4-11 [facility] of mcg/mL 00:00: lar route [place] injection 00 weekly. [facility] vitamin 2021-0 Yes [id number] 1000ug Take 1 U nivers B-12 1,000 4-11 tablet by ity of mcg tablet 00:00: mouth [place] 00 daily. [facility] cyanocobala 2021-0 Yes [id number] 1000ug 1 mL by [facility] min 1,000 4-11 [facility] of mcg/mL 00:00: lar route [place] injection 00 weekly. [facility] vitamin 2021-0 Yes [id number] 1000ug Take 1 [facility] nivers B-12 1,000 4-11 tablet by ity of mcg tablet 00:00: mouth [place] 00 daily. [facility] cyanocobala 2021-0 Yes [id number] 1000ug 1 mL by [facility] min 1,000 4-11 [facility] of mcg/mL 00:00: lar route [place] injection 00 weekly. [facility] vitamin 2021-0 Yes [id number] 1000ug Take 1 [facility] nivers B-12 1,000 4-11 tablet by ity of mcg tablet 00:00: mouth [place] 00 daily. [facility] cyanocobala 2021-0 Yes [id number] 1000ug 1 mL by [facility] min 1,000 4-11 [facility] of mcg/mL 00:00: lar route [place] injection 00 weekly. [facility] vitamin 2021-0 Yes [id number] 1000ug Take 1 [facility] nivers B-12 1,000 4-11 tablet by ity of mcg tablet 00:00: mouth [place] 00 daily. [facility] cyanocobala 2021-0 Yes [id number] 1000ug 1 mL by [facility] min 1,000 4-11 [facility] of mcg/mL 00:00: lar route [place] injection 00 weekly. [facility] vitamin 2021-0 Yes [id number] 1000ug Take 1 [facility] nivers B-12 1,000 4-11 tablet by ity of mcg tablet 00:00: mouth [place] 00 daily. [facility] cyanocobala 2021-0 Yes [id number] 1000ug 1 mL by [facility] min 1,000 4-11 [facility] of mcg/mL 00:00: lar route [place] injection 00 weekly. [facility] vitamin 2021-0 Yes [id number] 1000ug Take 1 [facility] nivers B-12 1,000 4-11 tablet by [facility]y of mcg tablet 00:00: mouth [place] 00 daily. [facility] cyanocobala 2021-0 Yes [id number] 1000ug 1 mL by [facility] min 1,000 4-11 [facility] of mcg/mL 00:00: lar route [place] injection 00 weekly. [facility] vitamin 2021-0 Yes [id number] 1000ug Take 1 U nivers B-12 1,000 4-11 tablet by ity of mcg tablet 00:00: mouth [place] 00 daily. [facility] cyanocobala 2022-0 Yes [id number] 1000ug 1 mL by [facility] min 1,000 4-11 [facility] of mcg/mL 00:00: lar route [place] injection 00 weekly. [facility] vitamin 2021-0 Yes [id number] 1000ug Take 1 [facility] nivers B-12 1,000 4-11 tablet by ity of mcg tablet 00:00: mouth [place] 00 daily. [facility] cyanocobala 2021-0 Yes [id number] 1000ug 1 mL by [facility] min 1,000 4-11 [facility] of mcg/mL 00:00: lar route [place] injection 00 weekly. [facility] vitamin 2021-0 Yes [id number] 1000ug Take 1 [facility] nivers B-12 1,000 4-11 tablet by ity of mcg tablet 00:00: mouth [place] 00 daily. [facility] cyanocobala 2021-0 Yes [id number] 1000ug 1 mL by [facility] min 1,000 4-11 [facility] of mcg/mL 00:00: lar route [place] injection 00 weekly. [facility] vitamin 2021-0 Yes [id number] 1000ug Take 1 [facility] nivers B-12 1,000 4-11 tablet by [facility]y of mcg tablet 00:00: mouth [place] 00 daily. [facility] cyanocobala 2021-0 Yes [id number] 1000ug 1 mL by [facility] min 1,000 4-11 [facility] of mcg/mL 00:00: lar route [place] injection 00 weekly. [facility] vitamin 2021-0 Yes [id number] 1000ug Take 1 [facility] nivers B-12 1,000 4-11 tablet by ity of mcg tablet 00:00: mouth [place] 00 daily. [facility] cyanocobala 2021-0 Yes [id number] 1000ug 1 mL by [facility] min 1,000 4-11 [facility] of mcg/mL 00:00: lar route [place] injection 00 weekly. [facility] vitamin 2021-0 Yes [id number] 1000ug Take 1 [facility] nivers B-12 1,000 4-11 tablet by ity of mcg tablet 00:00: mouth [place] 00 daily. [facility] cyanocobala 2021-0 Yes [id number] 1000ug 1 mL by [facility] min 1,000 4-11 [facility] of mcg/mL 00:00: lar route [place] injection 00 weekly. [facility] vitamin 2022-0 Yes [id number] 1000ug Take 1 [facility] nivers B-12 1,000 4-11 tablet by ity of mcg tablet 00:00: mouth [place] 00 daily. [facility] cyanocobala 2021-0 Yes [id number] 1000ug 1 mL by [facility] min 1,000 4-11 [facility] of mcg/mL 00:00: lar route [place] injection 00 weekly. [facility] vitamin 2021-0 Yes [id number] 1000ug Take 1 [facility] nivers B-12 1,000 4-11 tablet by [facility]y of mcg tablet 00:00: mouth [place] 00 daily. [facility] cyanocobala 2021-0 Yes [id number] 1000ug 1 mL by [facility] min 1,000 4-11 [facility] of mcg/mL 00:00: lar route [place] injection 00 weekly. [facility] vitamin 2021-0 Yes [id number] 1000ug Take 1 [facility] nivers B-12 1,000 4-11 tablet by ity of mcg tablet 00:00: mouth [place] 00 daily. [facility] cyanocobala 2021-0 Yes [id number] 1000ug 1 mL by [facility] min 1,000 4-11 Intr[facility] of mcg/mL 00:00: lar route [place] injection 00 weekly. [facility] vitamin 2021-0 Yes [id number] 1000ug Take 1 [facility] nivers B-12 1,000 4-11 tablet by ity of mcg tablet 00:00: mouth [place] 00 daily. [facility] cyanocobala 2021-0 Yes [id number] 1000ug 1 mL by [facility] min 1,000 4-11 Intr[facility]y of mcg/mL 00:00: lar route [place] injection 00 weekly. [facility] vitamin 2021-0 Yes [id number] 1000ug Take 1 U nivers B-12 1,000 4-11 tablet by ity of mcg tablet 00:00: mouth [place] 00 daily. [facility] cyanocobala 2021-0 Yes [id number] 1000ug 1 mL by [facility] min 1,000 4-11 Intr[facility]y of mcg/mL 00:00: lar route [place] injection 00 weekly. [facility] vitamin 2021-0 Yes [id number] 1000ug Take 1 [facility] nivers B-12 1,000 4-11 tablet by ity of mcg tablet 00:00: mouth [place] 00 daily. [facility] cyanocobala Yes [id number] 1000ug 1 mL by [facility] min 1,000 4-11 Intr[facility]y of mcg/mL 00:00: lar route [place] injection 00 weekly. [facility] Branch vitamin 0 Yes [id number] 1000ug Take 1 U nivers B-12 1,000 4-11 tablet by ity of mcg tablet 00:00: mouth [place] 00 daily. [facility] Branch cyanocobala Yes [id number] 1000ug 1 mL by [facility] min 1,000 4-11 Intr[facility]y of mcg/mL 00:00: lar route [place] injection 00 weekly. [facility] Branch vitamin Yes [id number] 1000ug Take 1 U nivers B-12 1,000 4-11 tablet by ity of mcg tablet 00:00: mouth [place] 00 daily. [facility] cyanocobala Yes [id number] 1000ug 1 mL by [facility] min 1,000 4-11 Intramuscu ity of mcg/mL 00:00: lar route [place] injection 00 weekly. [facility] Branch vitamin 0 Yes [id number] 1000ug Take 1 U nivers B-12 1,000 4-11 tablet by ity of mcg tablet 00:00: mouth [place] 00 daily. [facility] cyanocobala Yes [id number] 1000ug 1 mL by [facility] min 1,000 4-11 Intramuscu ity of mcg/mL 00:00: lar route [place] injection 00 weekly. [facility] vitamin 0 Yes [id number] 1000ug Take 1 U nivers B-12 1,000 4-11 tablet by ity of mcg tablet 00:00: mouth [place] 00 daily. [facility] cyanocobala Yes [id number] 1000ug 1 mL by [facility] min 1,000 4-11 Intr[facility] ity of mcg/mL 00:00: lar route [place] injection 00 weekly. [facility] losartan Yes 20mg Take 20 mg [facility] vers potassium 4-05 by mouth. ity o f (LOSARTAN 09:24: [place] ORAL) 36 [facility] FUROSEMIDE 2021-0 Yes 40mg Take 40 mg U nivers ORAL 4-05 by mouth ity of 09:24: daily. [place] 36 [facility] losartan 0 Yes 20mg Take 20 mg [facility] vers potassium 4-05 by mouth. ity o f (LOSARTAN 09:24: [place] ORAL) [address] [place] [address] FUROSEMIDE 2021-0 Yes 40mg Take 40 mg U nivers ORAL 4-05 by mouth ity of 09:24: daily. [address] losartan 2021-0 Yes 20mg Take 20 mg [facility] vers potassium 4-05 by mouth. ity o f (LOSARTAN 09:24: [place] ORAL) [address] [place] [address] FUROSEMIDE 0 Yes 40mg Take 40 mg U nivers ORAL 4-05 by mouth ity of 09:24: daily. [address] losartan 2021-0 Yes 20mg Take 20 mg [facility] vers potassium 4-05 by mouth. ity o f (LOSARTAN 09:24: [place] ORAL) [address] [place] [address] FUROSEMIDE 0 Yes 40mg Take 40 mg U nivers ORAL 4-05 by mouth ity of 09:24: daily. [address] losartan 2021-0 Yes 20mg Take 20 mg [facility] vers potassium 4-05 by mouth. ity o f (LOSARTAN 09:24: [place] ORAL) [address] [place] [address] FUROSEMIDE 2021-0 Yes 40mg Take 40 mg U nivers ORAL 4-05 by mouth ity of 09:24: daily. [address] losartan 2021-0 Yes 20mg Take 20 mg [facility] vers potassium 4-05 by mouth. ity o f (LOSARTAN 09:24: [place] ORAL) [address] [place] [address] FUROSEMIDE 0 Yes 40mg Take 40 mg U nivers ORAL 4-05 by mouth ity of 09:24: daily. [address] losartan 2021-0 Yes 20mg Take 20 mg [facility] vers potassium 4-05 by mouth. ity o f (LOSARTAN 09:24: [place] ORAL) [address] [place] [address] FUROSEMIDE 2021-0 Yes 40mg Take 40 mg U nivers ORAL 4-05 by mouth ity of 09:24: daily. [address] losartan 2021-0 Yes 20mg Take 20 mg [facility] vers potassium 4-05 by mouth. ity o f (LOSARTAN 09:24: [place] ORAL) [address] [place] [address] FUROSEMIDE 2021-0 Yes 40mg Take 40 mg U nivers ORAL 4-05 by mouth ity of 09:24: daily. [address] losartan 2021-0 Yes 20mg Take 20 mg [facility] vers potassium 4-05 by mouth. ity o f (LOSARTAN 09:24: [place] ORAL) [address] [place] [address] FUROSEMIDE 2021-0 Yes 40mg Take 40 mg U nivers ORAL 4-05 by mouth ity of 09:24: daily. [address] losartan 2021-0 Yes 20mg Take 20 mg [facility] vers potassium 4-05 by mouth. ity o f (LOSARTAN 09:24: [place] ORAL) [address] [place] [address] FUROSEMIDE 2021-0 Yes 40mg Take 40 mg U nivers ORAL 4-05 by mouth ity of 09:24: daily. [address] losartan 2021-0 Yes 20mg Take 20 mg [facility] vers potassium 4-05 by mouth. ity o f (LOSARTAN 09:24: [place] ORAL) [address] [place] [address] FUROSEMIDE 0 Yes 40mg Take 40 mg U nivers ORAL 4-05 by mouth ity of 09:24: daily. [address] losartan 2021-0 Yes 20mg Take 20 mg [facility] vers potassium 4-05 by mouth. ity o f (LOSARTAN 09:24: [place] ORAL) [address] [place] [address] FUROSEMIDE 0 Yes 40mg Take 40 mg U nivers ORAL 4-05 by mouth ity of 09:24: daily. [address] losartan 2021-0 Yes 20mg Take 20 mg [facility] vers potassium 4-05 by mouth. ity o f (LOSARTAN 09:24: [place] ORAL) [address] [place] [address] FUROSEMIDE 2021-0 Yes 40mg Take 40 mg U nivers ORAL 4-05 by mouth ity of 09:24: daily. [address] losartan 2021-0 Yes 20mg Take 20 mg [facility] vers potassium 4-05 by mouth. ity o f (LOSARTAN 09:24: [place] ORAL) [address] [place] [address] FUROSEMIDE 2021-0 Yes 40mg Take 40 mg U nivers ORAL 4-05 by mouth ity of 09:24: daily. [address] losartan 2021-0 Yes 20mg Take 20 mg [facility] vers potassium 4-05 by mouth. ity o f (LOSARTAN 09:24: [place] ORAL) [address] [place] [address] FUROSEMIDE 2021-0 Yes 40mg Take 40 mg U nivers ORAL 4-05 by mouth ity of 09:24: daily. [address] losartan 2021-0 Yes 20mg Take 20 mg [facility] vers potassium 4-05 by mouth. ity o f (LOSARTAN 09:24: [place] ORAL) [address] [place] [address] FUROSEMIDE 2021-0 Yes 40mg Take 40 mg U nivers ORAL 4-05 by mouth ity of 09:24: daily. [address] losartan 2021-0 Yes 20mg Take 20 mg [facility] vers potassium 4-05 by mouth. ity o f (LOSARTAN 09:24: [place] ORAL) [address] [place] [address] FUROSEMIDE 2021-0 Yes 40mg Take 40 mg U nivers ORAL 4-05 by mouth ity of 09:24: daily. [address] losartan 2021-0 Yes 20mg Take 20 mg [facility] vers potassium 4-05 by mouth. ity o f (LOSARTAN 09:24: [place] ORAL) [address] [place] [address] FUROSEMIDE 0 Yes 40mg Take 40 mg U nivers ORAL 4-05 by mouth ity of 09:24: daily. [address] losartan 2021-0 Yes 20mg Take 20 mg [facility] vers potassium 4-05 by mouth. ity o f (LOSARTAN 09:24: [place] ORAL) [address] [place] [address] FUROSEMIDE 2021-0 Yes 40mg Take 40 mg U nivers ORAL 4-05 by mouth ity of 09:24: daily. [address] losartan 2021-0 Yes 20mg Take 20 mg [facility] vers potassium 4-05 by mouth. ity o f (LOSARTAN 09:24: [place] ORAL) [address] [place] [address] FUROSEMIDE 2021-0 Yes 40mg Take 40 mg U nivers ORAL 4-05 by mouth ity of 09:24: daily. [address] losartan 2021-0 Yes 20mg Take 20 mg [facility] vers potassium 4-05 by mouth. ity o f (LOSARTAN 09:24: [place] ORAL) [address] [place] [address] FUROSEMIDE 2021-0 Yes 40mg Take 40 mg U nivers ORAL 4-05 by mouth ity of 09:24: daily. [address] losartan 2021-0 Yes 20mg Take 20 mg [facility] vers potassium 4-05 by mouth. ity o f (LOSARTAN 09:24: [place] ORAL) [address] [place] [address] FUROSEMIDE 2021-0 Yes 40mg Take 40 mg U nivers ORAL 4-05 by mouth ity of 09:24: daily. [address] losartan 2021-0 Yes 20mg Take 20 mg [facility] vers potassium 4-05 by mouth. ity o f (LOSARTAN 09:24: [place] ORAL) [address] [place] [address] FUROSEMIDE 2021-0 Yes 40mg Take 40 mg U nivers ORAL 4-05 by mouth ity of 09:24: daily. [address] losartan 2021-0 Yes 20mg Take 20 mg [facility] vers potassium 4-05 by mouth. ity o f (LOSARTAN 09:24: [place] ORAL) [address] [place] [address] FUROSEMIDE 0 Yes 40mg Take 40 mg U nivers ORAL 4-05 by mouth ity of 09:24: daily. [address] losartan 2021-0 Yes 20mg Take 20 mg [facility] vers potassium 4-05 by mouth. ity o f (LOSARTAN 09:24: [place] ORAL) [address] [place] [address] FUROSEMIDE 0 Yes 40mg Take 40 mg U nivers ORAL 4-05 by mouth ity of 09:24: daily. [address] losartan 0 Yes 20mg Take 20 mg [facility] vers potassium 4-05 by mouth. ity o f (LOSARTAN 09:24: [place] ORAL) [address] [place] [address] FUROSEMIDE 0 Yes 40mg Take 40 mg U nivers ORAL 4-05 by mouth ity of 09:24: daily. [address] losartan 2021-0 Yes 20mg Take 20 mg [facility] vers potassium 4-05 by mouth. ity o f (LOSARTAN 09:24: [place] ORAL) [address] [place] [address] FUROSEMIDE 0 Yes 40mg Take 40 mg U nivers ORAL 4-05 by mouth ity of 09:24: daily. [address] losartan 2021-0 Yes 20mg Take 20 mg [facility] vers potassium 4-05 by mouth. ity o f (LOSARTAN 09:24: [place] ORAL) [address] [place] [address] FUROSEMIDE 0 Yes 40mg Take 40 mg U nivers ORAL 4-05 by mouth ity of 09:24: daily. [address] losartan 2021-0 Yes 20mg Take 20 mg [facility] vers potassium 4-05 by mouth. ity o f (LOSARTAN 09:24: [place] ORAL) [address] [place] [address] FUROSEMIDE 2021-0 Yes 40mg Take 40 mg U nivers ORAL 4-05 by mouth ity of 09:24: daily. [address] losartan 2021-0 Yes 20mg Take 20 mg [facility] vers potassium 4-05 by mouth. ity o f (LOSARTAN 09:24: [place] ORAL) [address] [place] [address] losartan 2021-0 Yes 20mg Take 20 mg [facility] vers potassium 4-05 by mouth. ity o f (LOSARTAN 09:24: [place] ORAL) [address] [place] [address] losartan 2021-0 Yes 20mg Take 20 mg [...] (LOSARTAN 09:24: [place] ORAL) 36 [facility] magnesium Yes [id number] 400mg Take 2 [facility] gluconate 4-05 tablets by ity of 200 mg 00:00: mouth 2 [place] tablet 00 (two) Medical times Branch daily. gabapentin 2021-0 Yes [id number] 300mg Take 1 [facility] 300 mg 4-05 capsule by ity of capsule 00:00: mouth 3 [place] 00 (three) Medical times Branch daily. rizatriptan 0 Yes [id number] 5mg Take 1 [facility] 5 mg 4-05 tablet by ity of disintegrat 00:00: mouth as [place] ing tablet 00 needed for Med ical Migraine Branch (Take 5mg at the beginning of the headache can repeat 2h after if headaches persists). May repeat in 2 hours if needed magnesium 2022-0 Yes [id number] 400mg Take 2 [facility] gluconate 4-05 tablets by ity of 200 mg 00:00: mouth 2 [place] tablet 00 (two) Medical times Branch daily. gabapentin 2022-0 Yes [id number] 300mg Take 1 [facility] 300 mg 4-05 capsule by ity of capsule 00:00: mouth 3 [place] 00 (three) Medical times Branch daily. rizatriptan 2022-0 Yes [id number] 5mg Take 1 [facility] 5 mg 4-05 tablet by ity of disintegrat 00:00: mouth as [place] ing tablet 00 needed for Med ical Migraine Branch (Take 5mg at the beginning of the headache can repeat 2h after if headaches persists). May repeat in 2 hours if needed magnesium 2022-0 Yes [id number] 400mg Take 2 [facility] gluconate 4-05 tablets by ity of 200 mg 00:00: mouth 2 [place] tablet 00 (two) Medical times Branch daily. gabapentin 2022-0 Yes [id number] 300mg Take 1 [facility] 300 mg 4-05 capsule by ity of capsule 00:00: mouth 3 [place] 00 (three) Medical times Branch daily. rizatriptan 2022-0 Yes [id number] 5mg Take 1 [facility] 5 mg 4-05 tablet by ity of disintegrat 00:00: mouth as [place] ing tablet 00 needed for Med ical Migraine Branch (Take 5mg at the beginning of the headache can repeat 2h after if headaches persists). May repeat in 2 hours if needed magnesium 2022-0 Yes [id number] 400mg Take 2 [facility] gluconate 4-05 tablets by ity of 200 mg 00:00: mouth 2 [place] tablet 00 (two) Medical times Branch daily. gabapentin 2022-0 Yes [id number] 300mg Take 1 [facility] 300 mg 4-05 capsule by ity of capsule 00:00: mouth 3 [place] 00 (three) Medical times Branch daily. rizatriptan 2022-0 Yes [id number] 5mg Take 1 [facility] 5 mg 4-05 tablet by ity of disintegrat 00:00: mouth as [place] ing tablet 00 needed for Med ical Migraine Branch (Take 5mg at the beginning of the headache can repeat 2h after if headaches persists). May repeat in 2 hours if needed magnesium 2022-0 Yes [id number] 400mg Take 2 [facility] gluconate 4-05 tablets by ity of 200 mg 00:00: mouth 2 [place] tablet 00 (two) Medical times Branch daily. gabapentin 2022-0 Yes [id number] 300mg Take 1 [facility] 300 mg 4-05 capsule by ity of capsule 00:00: mouth 3 [place] 00 (three) Medical times Branch daily. rizatriptan 2022-0 Yes [id number] 5mg Take 1 [facility] 5 mg 4-05 tablet by ity of disintegrat 00:00: mouth as [place] ing tablet 00 needed for Med ical Migraine Branch (Take 5mg at the beginning of the headache can repeat 2h after if headaches persists). May repeat in 2 hours if needed magnesium 2022-0 Yes [id number] 400mg Take 2 [facility] gluconate 4-05 tablets by ity of 200 mg 00:00: mouth 2 [place] tablet 00 (two) Medical times Branch daily. gabapentin 2022-0 Yes [id number] 300mg Take 1 [facility] 300 mg 4-05 capsule by ity of capsule 00:00: mouth 3 [place] (three) Medical times Branch daily. rizatriptan 2022-0 Yes [id number] 5mg Take 1 [facility] 5 mg 4-05 tablet by ity of disintegrat 00:00: mouth as [place] tablet 00 needed for Med ical Migraine Branch (Take 5mg at the beginning of the headache can repeat 2h after if headaches persists). May repeat in 2 hours if needed magnesium 2022-0 Yes [id number] 400mg Take 2 [facility] gluconate 4-05 tablets by ity of 200 mg 00:00: mouth 2 [place] tablet 00 (two) Medical times Branch daily. gabapentin 2022-0 Yes [id number] 300mg Take 1 [facility] 300 mg 4-05 capsule by ity of capsule 00:00: mouth 3 [place] 00 (three) Medical times Branch daily. rizatriptan 2022-0 Yes [id number] 5mg Take 1 [facility] 5 mg 4-05 tablet by ity of disintegrat 00:00: mouth as [place] ing tablet 00 needed for Med ical Migraine Branch (Take 5mg at the beginning of the headache can repeat 2h after if headaches persists). May repeat in 2 hours if needed magnesium 2022-0 Yes [id number] 400mg Take 2 [facility] gluconate 4-05 tablets by ity of 200 mg 00:00: mouth 2 [place] tablet 00 (two) Medical times Branch daily. gabapentin 2022-0 Yes [id number] 300mg Take 1 [facility] 300 mg 4-05 capsule by ity of capsule 00:00: mouth 3 [place] (three) Medical times Branch daily. rizatriptan 2022-0 Yes [id number] 5mg Take 1 [facility] 5 mg 4-05 tablet by ity of disintegrat 00:00: mouth as [place] ing tablet 00 needed for Med ical Migraine Branch (Take 5mg at the beginning of the headache can repeat 2h after if headaches persists). May repeat in 2 hours if needed magnesium 2022-0 Yes [id number] 400mg Take 2 [facility] gluconate 4-05 tablets by ity of 200 mg 00:00: mouth 2 [place] tablet 00 (two) Medical times Branch daily. gabapentin 2022-0 Yes [id number] 300mg Take 1 [facility] 300 mg 4-05 capsule by ity of capsule 00:00: mouth 3 [place] (three) Medical times Branch daily. rizatriptan 2022-0 Yes [id number] 5mg Take 1 [facility] 5 mg 4-05 tablet by ity of disintegrat 00:00: mouth as [place] ing tablet 00 needed for Med ical Migraine Branch (Take 5mg at the beginning of the headache can repeat 2h after if headaches persists). May repeat in 2 hours if needed magnesium 2022-0 Yes [id number] 400mg Take 2 [facility] gluconate 4-05 tablets by ity of 200 mg 00:00: mouth 2 [place] tablet 00 (two) Medical times Branch daily. gabapentin 2022-0 Yes [id number] 300mg Take 1 [facility] 300 mg 4-05 capsule by ity of capsule 00:00: mouth 3 [place] (three) Medical times Branch daily. rizatriptan 2022-0 Yes [id number] 5mg Take 1 [facility] 5 mg 4-05 tablet by ity of disintegrat 00:00: mouth as [place] tablet 00 needed for Med ical Migraine Branch (Take 5mg at the beginning of the headache can repeat 2h after if headaches persists). May repeat in 2 hours if needed magnesium 2022-0 Yes [id number] 400mg Take 2 [facility] gluconate 4-05 tablets by ity of 200 mg 00:00: mouth 2 [place] tablet 00 (two) Medical times Branch daily. gabapentin 2022-0 Yes [id number] 300mg Take 1 [facility] 300 mg 4-05 capsule by ity of capsule 00:00: mouth 3 [place] 00 (three) Medical times Branch daily. rizatriptan 2022-0 Yes [id number] 5mg Take 1 [facility] 5 mg 4-05 tablet by ity of disintegrat 00:00: mouth as [place] tablet 00 needed for Med ical Migraine Branch (Take 5mg at the beginning of the headache can repeat 2h after if headaches persists). May repeat in 2 hours if needed magnesium 2022-0 Yes [id number] 400mg Take 2 [facility] gluconate 4-05 tablets by ity of 200 mg 00:00: mouth 2 [place] tablet 00 (two) Medical times Branch daily. gabapentin 2022-0 Yes [id number] 300mg Take 1 [facility] 300 mg 4-05 capsule by ity of capsule 00:00: mouth 3 [place] 00 (three) Medical times Branch daily. rizatriptan 2022-0 Yes [id number] 5mg Take 1 [facility] 5 mg 4-05 tablet by ity of disintegrat 00:00: mouth as [place] tablet 00 needed for Med ical Migraine Branch (Take 5mg at the beginning of the headache can repeat 2h after if headaches persists). May repeat in 2 hours if needed magnesium 2022-0 Yes [id number] 400mg Take 2 [facility] gluconate 4-05 tablets by ity of 200 mg 00:00: mouth 2 [place] tablet 00 (two) Medical times Branch daily. gabapentin 2022-0 Yes [id number] 300mg Take 1 [facility] 300 mg 4-05 capsule by ity of capsule 00:00: mouth 3 [place] 00 (three) Medical times Branch daily. rizatriptan 2022-0 Yes [id number] 5mg Take 1 [facility] 5 mg 4-05 tablet by ity of disintegrat 00:00: mouth as [place] ing tablet 00 needed for Med ical Migraine Branch (Take 5mg at the beginning of the headache can repeat 2h after if headaches persists). May repeat in 2 hours if needed magnesium 2022-0 Yes [id number] 400mg Take 2 [facility] gluconate 4-05 tablets by ity of 200 mg 00:00: mouth 2 [place] tablet 00 (two) Medical times Branch daily. gabapentin 2022-0 Yes [id number] 300mg Take 1 [facility] 300 mg 4-05 capsule by ity of capsule 00:00: mouth 3 [place] 00 (three) Medical times Branch daily. rizatriptan 2022-0 Yes [id number] 5mg Take 1 [facility] 5 mg 4-05 tablet by ity of disintegrat 00:00: mouth as [place] ing tablet 00 needed for Med ical Migraine Branch (Take 5mg at the beginning of the headache can repeat 2h after if headaches persists). May repeat in 2 hours if needed magnesium 2022-0 Yes [id number] 400mg Take 2 [facility] gluconate 4-05 tablets by ity of 200 mg 00:00: mouth 2 [place] tablet 00 (two) Medical times Branch daily. gabapentin 2022-0 Yes [id number] 300mg Take 1 [facility] 300 mg 4-05 capsule by ity of capsule 00:00: mouth 3 [place] 00 (three) Medical times Branch daily. rizatriptan 2022-0 Yes [id number] 5mg Take 1 [facility] 5 mg 4-05 tablet by ity of disintegrat 00:00: mouth as [place] tablet 00 needed for Med ical Migraine Branch (Take 5mg at the beginning of the headache can repeat 2h after if headaches persists). May repeat in 2 hours if needed magnesium 2022-0 Yes [id number] 400mg Take 2 [facility] gluconate 4-05 tablets by ity of 200 mg 00:00: mouth 2 [place] tablet 00 (two) Medical times Branch daily. gabapentin 2022-0 Yes [id number] 300mg Take 1 [facility] 300 mg 4-05 capsule by ity of capsule 00:00: mouth 3 [place] 00 (three) Medical times Branch daily. rizatriptan 2022-0 Yes [id number] 5mg Take 1 [facility] 5 mg 4-05 tablet by ity of disintegrat 00:00: mouth as [place] tablet 00 needed for Med ical Migraine Branch (Take 5mg at the beginning of the headache can repeat 2h after if headaches persists). May repeat in 2 hours if needed magnesium 2022-0 Yes [id number] 400mg Take 2 [facility] gluconate 4-05 tablets by ity of 200 mg 00:00: mouth 2 [place] tablet 00 (two) Medical times Branch daily. gabapentin 2022-0 Yes [id number] 300mg Take 1 [facility] 300 [facility] 4-05 capsule by [facility] capsule 00:00: mouth 3 [place] 00 (three) Medical times Branch daily. rizatriptan 2022-0 Yes [id number] 5mg Take 1 [facility] 5 mg 4-05 tablet by [facility] disintegrat 00:00: mouth as [place] ing tablet 00 needed for Med ical Migraine Branch (Take 5mg at the beginning of the headache can repeat 2h after if headaches persists). May repeat in 2 hours if needed magnesium 2022-0 Yes [id number] 400mg Take 2 [facility] gluconate 4-05 tablets by [facility] 200 mg 00:00: mouth 2 [place] tablet 00 (two) Medical times [facility] daily. gabapentin 2022-0 Yes [id number] 300mg Take 1 [facility] 300 mg 4-05 capsule by [facility] capsule 00:00: mouth 3 [place] (three) Medical times Branch daily. rizatriptan 2022-0 Yes [id number] 5mg Take 1 [facility] 5 mg 4-05 tablet by [facility] disintegrat 00:00: mouth as [place] ing tablet 00 needed for Med ical Migraine Branch (Take 5mg at the beginning of the headache can repeat 2h after if headaches persists). May repeat in 2 hours if needed magnesium 2022-0 Yes [id number] 400mg Take 2 [facility] gluconate 4-05 tablets by [facility] 200 mg 00:00: mouth 2 [place] tablet 00 (two) Medical times [facility] daily. gabapentin 2022-0 Yes [id number] 300mg Take 1 [facility] 300 mg 4-05 capsule by [facility] capsule 00:00: mouth 3 [place] (three) Medical times [facility] daily. rizatriptan 2022-0 Yes [id number] 5mg Take 1 [facility] 5 mg 4-05 tablet by [facility] disintegrat 00:00: mouth as [place] ing tablet 00 needed for Med ical Migraine Branch (Take 5mg at the beginning of the headache can repeat 2h after if headaches persists). May repeat in 2 hours if needed magnesium 2022-0 Yes [id number] 400mg Take 2 [facility] gluconate 4-05 tablets by [facility] 200 mg 00:00: mouth 2 [place] tablet 00 (two) Medical times [facility] daily. gabapentin 2022-0 Yes [id number] 300mg Take 1 [facility] 300 mg 4-05 capsule by [facility] capsule 00:00: mouth 3 [place] (three) Medical times [facility] daily. rizatriptan 2022-0 Yes [id number] 5mg Take 1 [facility] 5 mg 4-05 tablet by [facility] disintegrat 00:00: mouth as [place] tablet 00 needed for Med ical Migraine Branch (Take 5mg at the beginning of the headache can repeat 2h after if headaches persists). May repeat in 2 hours if needed magnesium 2022-0 Yes [id number] 400mg Take 2 [facility] gluconate 4-05 tablets by [facility] 200 mg 00:00: mouth 2 [place] tablet 00 (two) Medical times [facility] daily. gabapentin 2022-0 Yes [id number] 300mg Take 1 [facility] 300 mg 4-05 capsule by [facility] capsule 00:00: mouth 3 [place] 00 (three) Medical times [facility] daily. rizatriptan 2022-0 Yes [id number] 5mg Take 1 [facility] 5 mg 4-05 tablet by [facility] disintegrat 00:00: mouth as [place] ing tablet 00 needed for Med ical Migraine Branch (Take 5mg at the beginning of the headache can repeat 2h after if headaches persists). May repeat in 2 hours if needed magnesium 2022-0 Yes [id number] 400mg Take 2 [facility] gluconate 4-05 tablets by [facility] 200 mg 00:00: mouth 2 [place] tablet 00 (two) Medical times [facility] daily. gabapentin 2022-0 Yes [id number] 300mg Take 1 [facility] 300 mg 4-05 capsule by [facility] capsule 00:00: mouth 3 [place] 00 (three) Medical times [facility] daily. rizatriptan 2022-0 Yes [id number] 5mg Take 1 [facility] 5 mg 4-05 tablet by [facility] disintegrat 00:00: mouth as [place] tablet 00 needed for Med ical Migraine Branch (Take 5mg at the beginning of the headache can repeat 2h after if headaches persists). May repeat in 2 hours if needed magnesium 2022-0 Yes [id number] 400mg Take 2 [facility] gluconate 4-05 tablets by [facility] 200 mg 00:00: mouth 2 [place] tablet 00 (two) Medical times [facility] daily. gabapentin 2022-0 Yes [id number] 300mg Take 1 [facility] 300 mg 4-05 capsule by [facility] capsule 00:00: mouth 3 [place] 00 (three) Medical times Branch daily. rizatriptan 2022-0 Yes [id number] 5mg Take 1 [facility] 5 mg 4-05 tablet by [facility] disintegrat 00:00: mouth as [place] tablet 00 needed for Med ical Migraine Branch (Take 5mg at the beginning of the headache can repeat 2h after if headaches persists). May repeat in 2 hours if needed magnesium 2022-0 Yes [id number] 400mg Take 2 [facility] gluconate 4-05 tablets by [facility] of 200 mg 00:00: mouth 2 [place] tablet 00 (two) Medical times Branch daily. gabapentin 2022-0 Yes [id number] 300mg Take 1 [facility] 300 mg 4-05 capsule by [facility] capsule 00:00: mouth 3 [place] (three) Medical times [facility] daily. rizatriptan 2022-0 Yes [id number] 5mg Take 1 [facility] 5 mg 4-05 tablet by [facility] disintegrat 00:00: mouth as [place] ing tablet 00 needed for Med ical Migraine Branch (Take 5mg at the beginning of the headache can repeat 2h after if headaches persists). May repeat in 2 hours if needed magnesium 2022-0 Yes [id number] 400mg Take 2 [facility] gluconate 4-05 tablets by [facility] of 200 mg 00:00: mouth 2 [place] tablet 00 (two) Medical times Branch daily. gabapentin 2022-0 Yes [id number] 300mg Take 1 [facility] 300 mg 4-05 capsule by [facility] capsule 00:00: mouth 3 (three) Medical times [facility] daily. rizatriptan 2022-0 Yes [id number] 5mg Take 1 [facility] 5 mg 4-05 tablet by [facility] disintegrat 00:00: mouth as [place] ing tablet 00 needed for Med ical Migraine Branch (Take 5mg at the beginning of the headache can repeat 2h after if headaches persists). May repeat in 2 hours if needed magnesium 2022-0 Yes [id number] 400mg Take 2 [facility] gluconate 4-05 tablets by [facility] 200 mg 00:00: mouth 2 [place] tablet 00 (two) Medical times [facility] daily. gabapentin 2022-0 Yes [id number] 300mg Take 1 [facility] 300 mg 4-05 capsule by [facility] capsule 00:00: mouth 3 [place] 00 (three) Medical times [facility] daily. rizatriptan 2022-0 Yes [id number] 5mg Take 1 [facility] 5 mg 4-05 tablet by [facility] disintegrat 00:00: mouth as [place] ing tablet 00 needed for Med ical Migraine Branch (Take 5mg at the beginning of the headache can repeat 2h after if headaches persists). May repeat in 2 hours if needed magnesium 2022-0 Yes [id number] 400mg Take 2 [facility] gluconate 4-05 tablets by [facility] 200 mg 00:00: mouth 2 [place] tablet 00 (two) Medical times Branch daily. gabapentin 2022-0 Yes [id number] 300mg Take 1 [facility] 300 mg 4-05 capsule by [facility] capsule 00:00: mouth 3 [place] 00 (three) Medical times Branch daily. rizatriptan 2022-0 Yes [id number] 5mg Take 1 [facility] 5 mg 4-05 tablet by [facility] disintegrat 00:00: mouth as [place] tablet 00 needed for Med ical Migraine Branch (Take 5mg at the beginning of the headache can repeat 2h after if headaches persists). May repeat in 2 hours if needed magnesium 2022-0 Yes [id number] 400mg Take 2 [facility] gluconate 4-05 tablets by [facility] 200 mg 00:00: mouth 2 [place] tablet 00 (two) Medical times Branch daily. gabapentin 2022-0 Yes [id number] 300mg Take 1 [facility] 300 mg 4-05 capsule by [facility] capsule 00:00: mouth 3 (three) Medical times Branch daily. rizatriptan 2022-0 Yes [id number] 5mg Take 1 [facility] 5 mg 4-05 tablet by [facility] disintegrat 00:00: mouth as [place] tablet 00 needed for Med ical Migraine Branch (Take 5mg at the beginning of the headache can repeat 2h after if headaches persists). May repeat in 2 hours if needed magnesium 2022-0 Yes [id number] 400mg Take 2 [facility] gluconate 4-05 tablets by [facility] 200 mg 00:00: mouth 2 [place] tablet 00 (two) Medical times Branch daily. gabapentin 2022-0 Yes [id number] 300mg Take 1 [facility] 300 mg 4-05 capsule by [facility] capsule 00:00: mouth 3 [place] 00 (three) Medical times [facility] daily. rizatriptan 2022-0 Yes [id number] 5mg Take 1 [facility] 5 mg 4-05 tablet by [facility] disintegrat 00:00: mouth as [place] tablet 00 needed for Med ical Migraine Branch (Take 5mg at the beginning of the headache can repeat 2h after if headaches persists). May repeat in 2 hours if needed magnesium 2022-0 Yes [id number] 400mg Take 2 [facility] gluconate 4-05 tablets by [facility] 200 mg 00:00: mouth 2 [place] tablet 00 (two) Medical times [facility] daily. gabapentin 2022-0 Yes [id number] 300mg Take 1 [facility] 300 mg 4-05 capsule by [facility] capsule 00:00: mouth 3 [place] 00 (three) Medical times [facility] daily. rizatriptan 2022-0 Yes [id number] 5mg Take 1 [facility] 5 mg 4-05 tablet by [facility] disintegrat 00:00: mouth as [place] ing tablet 00 needed for Med ical Migraine Branch (Take 5mg at the beginning of the headache can repeat 2h after if headaches persists). May repeat in 2 hours if needed magnesium 2022-0 Yes [id number] 400mg Take 2 [facility] gluconate 4-05 tablets by [facility] 200 mg 00:00: mouth 2 [place] tablet 00 (two) Medical times [facility] daily. gabapentin 2022-0 Yes [id number] 300mg Take 1 [facility] 300 mg 4-05 capsule by [facility] capsule 00:00: mouth 3 [place] 00 (three) Medical times [facility] daily. rizatriptan 2022-0 Yes [id number] 5mg Take 1 [facility] 5 mg 4-05 tablet by [facility] disintegrat 00:00: mouth as [place] tablet 00 needed for Med ical Migraine Branch (Take 5mg at the beginning of the headache can repeat 2h after if headaches persists). May repeat in 2 hours if needed magnesium 2022-0 Yes [id number] 400mg Take 2 [facility] gluconate 4-05 tablets by [facility] of 200 mg 00:00: mouth 2 [place] tablet 00 (two) Medical times [facility] daily. gabapentin 2022-0 Yes [id number] 300mg Take 1 [facility] 300 mg 4-05 capsule by [facility] capsule 00:00: mouth 3 [place] 00 (three) Medical times [facility] daily. rizatriptan 2022-0 Yes [id number] 5mg Take 1 [facility] 5 mg 4-05 tablet by [facility] disintegrat 00:00: mouth as [place] ing tablet 00 needed for Med ical Migraine Branch (Take 5mg at the beginning of the headache can repeat 2h after if headaches persists). May repeat in 2 hours if needed magnesium 2022-0 Yes [id number] 400mg Take 2 [facility] gluconate 4-05 tablets by [facility] of 200 mg 00:00: mouth 2 [place] tablet 00 (two) Medical times [facility] daily. gabapentin 2022-0 Yes [id number] 300mg Take 1 [facility] 300 mg 4-05 capsule by [facility] capsule 00:00: mouth 3 [place] 00 (three) Medical times Branch daily. rizatriptan 2022-0 Yes [id number] 5mg Take 1 [facility] 5 mg 4-05 tablet by [facility] disintegrat 00:00: mouth as [place] ing tablet 00 needed for Med ical Migraine Branch (Take 5mg at the beginning of the headache can repeat 2h after if headaches persists). May repeat in 2 hours if needed magnesium 2022-0 Yes [id number] 400mg Take 2 [facility] gluconate 4-05 tablets by [facility] of 200 mg 00:00: mouth 2 [place] tablet 00 (two) Medical times [facility] daily. gabapentin 2022-0 Yes [id number] 300mg Take 1 [facility] 300 mg 4-05 capsule by [facility] of capsule 00:00: mouth 3 [place] 00 (three) Medical times Branch daily. rizatriptan 2022-0 Yes [id number] 5mg Take 1 [facility] 5 mg 4-05 tablet by [facility] disintegrat 00:00: mouth as [place] ing tablet 00 needed for Med ical Migraine Branch (Take 5mg at the beginning of the headache can repeat 2h after if headaches persists). May repeat in 2 hours if needed magnesium 2022-0 Yes [id number] 400mg Take 2 [facility] gluconate 4-05 tablets by [facility] of 200 mg 00:00: mouth 2 [place] tablet 00 (two) Medical times [facility] daily. gabapentin 2022-0 Yes [id number] 300mg Take 1 [facility] 300 mg 4-05 capsule by [facility] of capsule 00:00: mouth 3 [place] 00 (three) Medical times [facility] daily. rizatriptan 2022-0 Yes [id number] 5mg Take 1 [facility] 5 mg 4-05 tablet by [facility] disintegrat 00:00: mouth as [place] ing tablet 00 needed for Med ical Migraine Branch (Take 5mg at the beginning of the headache can repeat 2h after if headaches persists). May repeat in 2 hours if needed magnesium 2022-0 Yes [id number] 400mg Take 2 [facility] gluconate 4-05 tablets by [facility] of 200 mg 00:00: mouth 2 [place] tablet 00 (two) Medical times Branch daily. gabapentin 2022-0 Yes [id number] 300mg Take 1 [facility] 300 mg 4-05 capsule by [facility] of capsule 00:00: mouth 3 [place] 00 (three) Medical times Branch daily. rizatriptan 2022-0 Yes [id number] 5mg Take 1 [facility] 5 mg 4-05 tablet by [facility] disintegrat 00:00: mouth as [place] ing tablet 00 needed for Med ical Migraine Branch (Take 5mg at the beginning of the headache can repeat 2h after if headaches persists). May repeat in 2 hours if needed magnesium 2022-0 Yes [id number] 400mg Take 2 [facility] gluconate 4-05 tablets by [facility] of 200 mg 00:00: mouth 2 [place] tablet 00 (two) Medical times [facility] daily. gabapentin 2022-0 Yes [id number] 300mg Take 1 [facility] 300 mg 4-05 capsule by [facility] of capsule 00:00: mouth 3 [place] (three) Medical times Branch daily. rizatriptan 2022-0 Yes [id number] 5mg Take 1 [facility] 5 mg 4-05 tablet by [facility] disintegrat 00:00: mouth as [place] ing tablet 00 needed for Med ical Migraine Branch (Take 5mg at the beginning of the headache can repeat 2h after if headaches persists). May repeat in 2 hours if needed magnesium 2022-0 Yes [id number] 400mg Take 2 [facility] gluconate 4-05 tablets by [facility] of 200 mg 00:00: mouth 2 [place] tablet 00 (two) Medical times [facility] daily. gabapentin 2022-0 Yes [id number] 300mg Take 1 [facility] 300 mg 4-05 capsule by [facility] of capsule 00:00: mouth 3 [place] 00 (three) Medical times Branch daily. rizatriptan 2022-0 Yes [id number] 5mg Take 1 [facility] 5 mg 4-05 tablet by [facility] disintegrat 00:00: mouth as [place] ing tablet 00 needed for Med ical Migraine Branch (Take 5mg at the beginning of the headache can repeat 2h after if headaches persists). May repeat in 2 hours if needed magnesium 2022-0 Yes [id number] 400mg Take 2 [facility] gluconate 4-05 tablets by [facility] of 200 mg 00:00: mouth 2 [place] tablet 00 (two) Medical times Branch daily. gabapentin 2022-0 Yes [id number] 300mg Take 1 [facility] 300 mg 4-05 capsule by [facility] of capsule 00:00: mouth 3 [place] (three) Medical times Branch daily. rizatriptan 2022-0 Yes [id number] 5mg Take 1 [facility] 5 mg 4-05 tablet by [facility] disintegrat 00:00: mouth as [place] ing tablet 00 needed for Med ical Migraine Branch (Take 5mg at the beginning of the headache can repeat 2h after if headaches persists). May repeat in 2 hours if needed magnesium 2022-0 Yes [id number] 400mg Take 2 [facility] gluconate 4-05 tablets by [facility] of 200 mg 00:00: mouth 2 [place] tablet 00 (two) Medical times [facility] daily. gabapentin 2-0 Yes [id number] 300mg Take 1 [facility] 300 mg 4-05 capsule by [facility] of capsule 00:00: mouth 3 [place] (three) Medical times Branch daily. rizatriptan 2022-0 Yes [id number] 5mg Take 1 [facility] 5 mg 4-05 tablet by [facility] disintegrat 00:00: mouth as [place] ing tablet 00 needed for Med ical Migraine Branch (Take 5mg at the beginning of the headache can repeat 2h after if headaches persists). May repeat in 2 hours if needed magnesium 2022-0 Yes [id number] 400mg Take 2 [facility] gluconate 4-05 tablets by [facility] of 200 mg 00:00: mouth 2 [place] tablet 00 (two) Medical times [facility] daily. gabapentin 2-0 Yes [id number] 300mg Take 1 [facility] 300 mg 4-05 capsule by [facility] of capsule 00:00: mouth 3 [place] (three) Medical times Branch daily. rizatriptan 2022-0 Yes [id number] 5mg Take 1 [facility] 5 mg 4-05 tablet by [facility] disintegrat 00:00: mouth as [place] ing tablet 00 needed for Med ical Migraine Branch (Take 5mg at the beginning of the headache can repeat 2h after if headaches persists). May repeat in 2 hours if needed ondansetron 2021-0 Yes [id number] 4mg Take 1 [facility] (ZOFRAN 7-22 tablet by [facility] of ODT) 4 mg 00:00: mouth [place] disintegrat 00 every 8 Medic al ing tablet (eight) Branch hours as needed for Nausea and Vomiting (N/V). ondansetron 2020-0 Yes [id number] 4mg Take 1 [facility] (ZOFRAN 7-22 tablet by [facility] of ODT) 4 mg 00:00: mouth [place] disintegrat 00 every 8 Medic al ing tablet (eight) Branch hours as needed for Nausea and Vomiting (N/V). ondansetron 2020-0 Yes [id number] 4mg Take 1 [facility] (ZOFRAN 7-22 tablet by [facility] of ODT) 4 mg 00:00: mouth [place] disintegrat 00 every 8 Medic al ing tablet (eight) Branch hours as needed for Nausea and Vomiting (N/V). ondansetron 2020-0 Yes [id number] 4mg Take 1 [facility] (ZOFRAN 7-22 tablet by it[facility] of ODT) 4 mg 00:00: mouth [place] disintegrat 00 every 8 Medic al ing tablet (eight) Branch hours as needed for Nausea and Vomiting (N/V). ondansetron 2020-0 Yes [id number] 4mg Take 1 [facility] (ZOFRAN 7-22 tablet by ity of ODT) 4 mg 00:00: mouth [place] disintegrat 00 every 8 Medic al ing tablet (eight) Branch hours as needed for Nausea and Vomiting (N/V). ondansetron 2020-0 Yes [id number] 4mg Take 1 [facility] (ZOFRAN 7-22 tablet by ity of ODT) 4 mg 00:00: mouth [place] disintegrat 00 every 8 Medic al ing tablet (eight) Branch hours as needed for Nausea and Vomiting (N/V). ondansetron 2020-0 Yes [id number] 4mg Take 1 [facility] (ZOFRAN 7-22 tablet by ity of ODT) 4 mg 00:00: mouth [place] disintegrat 00 every 8 Medic al ing tablet (eight) Branch hours as needed for Nausea and Vomiting (N/V). ondansetron 2020-0 Yes [id number] 4mg Take 1 [facility] (ZOFRAN 7-22 tablet by ity of ODT) 4 mg 00:00: mouth [place] disintegrat 00 every 8 Medic al ing tablet (eight) Branch hours as needed for Nausea and Vomiting (N/V). ondansetron 2020-0 Yes [id number] 4mg Take 1 [facility] (ZOFRAN 7-22 tablet by ity of ODT) 4 mg 00:00: mouth [place] disintegrat 00 every 8 Medic al ing tablet (eight) Branch hours as needed for Nausea and Vomiting (N/V). ondansetron 2020-0 Yes [id number] 4mg Take 1 [facility] (ZOFRAN 7-22 tablet by ity of ODT) 4 mg 00:00: mouth [place] disintegrat 00 every 8 Medic al ing tablet (eight) Branch hours as needed for Nausea and Vomiting (N/V). ondansetron 2020-0 Yes [id number] 4mg Take 1 [facility] (ZOFRAN 7-22 tablet by ity of ODT) 4 mg 00:00: mouth [place] disintegrat 00 every 8 Medic al ing tablet (eight) Branch hours as needed for Nausea and Vomiting (N/V). ondansetron 2020-0 Yes [id number] 4mg Take 1 [facility] (ZOFRAN 7-22 tablet by ity of ODT) 4 mg 00:00: mouth [place] disintegrat 00 every 8 Medic al ing tablet (eight) Branch hours as needed for Nausea and Vomiting (N/V). ondansetron 2020-0 Yes [id number] 4mg Take 1 [facility] (ZOFRAN 7-22 tablet by ity of ODT) 4 mg 00:00: mouth [place] disintegrat 00 every 8 Medic al ing tablet (eight) Branch hours as needed for Nausea and Vomiting (N/V). ondansetron 2020-0 Yes [id number] 4mg Take 1 [facility] (ZOFRAN 7-22 tablet by ity of ODT) 4 mg 00:00: mouth [place] disintegrat 00 every 8 Medic al ing tablet (eight) Branch hours as needed for Nausea and Vomiting (N/V). ondansetron 2020-0 Yes [id number] 4mg Take 1 [facility] (ZOFRAN 7-22 tablet by ity of ODT) 4 mg 00:00: mouth [place] disintegrat 00 every 8 Medic al ing tablet (eight) Branch hours as needed for Nausea and Vomiting (N/V). ondansetron 2020-0 Yes [id number] 4mg Take 1 [facility] (ZOFRAN 7-22 tablet by ity of ODT) 4 mg 00:00: mouth [place] disintegrat 00 every 8 Medic al ing tablet (eight) Branch hours as needed for Nausea and Vomiting (N/V). ondansetron 2020-0 Yes [id number] 4mg Take 1 [facility] (ZOFRAN 7-22 tablet by ity of ODT) 4 mg 00:00: mouth [place] disintegrat 00 every 8 Medic al ing tablet (eight) Branch hours as needed for Nausea and Vomiting (N/V). ondansetron 2020-0 Yes [id number] 4mg Take 1 [facility] (ZOFRAN 7-22 tablet by ity of ODT) 4 mg 00:00: mouth [place] disintegrat 00 every 8 Medic al ing tablet (eight) Branch hours as needed for Nausea and Vomiting (N/V). ondansetron 2020-0 Yes [id number] 4mg Take 1 [facility] (ZOFRAN 7-22 tablet by ity of ODT) 4 mg 00:00: mouth [place] disintegrat 00 every 8 Medic al ing tablet (eight) Branch hours as needed for Nausea and Vomiting (N/V). ondansetron 2020-0 Yes [id number] 4mg Take 1 [facility] (ZOFRAN 7-22 tablet by ity of ODT) 4 mg 00:00: mouth [place] disintegrat 00 every 8 Medic al ing tablet (eight) Branch hours as needed for Nausea and Vomiting (N/V). ondansetron 2020-0 Yes [id number] 4mg Take 1 [facility] (ZOFRAN 7-22 tablet by ity of ODT) 4 mg 00:00: mouth [place] disintegrat 00 every 8 Medic al ing tablet (eight) Branch hours as needed for Nausea and Vomiting (N/V). ondansetron 2020-0 Yes [id number] 4mg Take 1 [facility] (ZOFRAN 7-22 tablet by ity of ODT) 4 mg 00:00: mouth [place] disintegrat 00 every 8 Medic al ing tablet (eight) Branch hours as needed for Nausea and Vomiting (N/V). ondansetron 2020-0 Yes [id number] 4mg Take 1 [facility] (ZOFRAN 7-22 tablet by ity of ODT) 4 mg 00:00: mouth [place] disintegrat 00 every 8 Medic al ing tablet (eight) Branch hours as needed for Nausea and Vomiting (N/V). ondansetron 2020-0 Yes [id number] 4mg Take 1 [facility] (ZOFRAN 7-22 tablet by ity of ODT) 4 mg 00:00: mouth [place] disintegrat 00 every 8 Medic al ing tablet (eight) Branch hours as needed for Nausea and Vomiting (N/V). ondansetron 1-0 Yes [id number] 4mg Take 1 [facility] (ZOFRAN 7-22 tablet by ity of ODT) 4 mg 00:00: mouth [place] disintegrat 00 every 8 Medic al ing tablet (eight) Branch hours as needed for Nausea and Vomiting (N/V). ondansetron 2020-0 Yes [id number] 4mg Take 1 [facility] (ZOFRAN 7-22 tablet by ity of ODT) 4 mg 00:00: mouth [place] disintegrat 00 every 8 Medic al ing tablet (eight) Branch hours as needed for Nausea and Vomiting (N/V). ondansetron 2020-0 Yes [id number] 4mg Take 1 [facility] (ZOFRAN 7-22 tablet by ity of ODT) 4 mg 00:00: mouth [place] disintegrat 00 every 8 Medic al ing tablet (eight) Branch hours as needed for Nausea and Vomiting (N/V). ondansetron 2020-0 Yes [id number] 4mg Take 1 [facility] (ZOFRAN 7-22 tablet by ity of ODT) 4 mg 00:00: mouth [place] disintegrat 00 every 8 Medic al ing tablet (eight) Branch hours as needed for Nausea and Vomiting (N/V). ondansetron 2020-0 Yes [id number] 4mg Take 1 [facility] (ZOFRAN 7-22 tablet by ity of ODT) 4 mg 00:00: mouth [place] disintegrat 00 every 8 Medic al ing tablet (eight) Branch hours as needed for Nausea and Vomiting (N/V). ondansetron 2020-0 Yes [id number] 4mg Take 1 [facility] (ZOFRAN 7-22 tablet by ity of ODT) 4 mg 00:00: mouth [place] disintegrat 00 every 8 Medic al ing tablet (eight) Branch hours as needed for Nausea and Vomiting (N/V). ondansetron 2021-0 Yes [id number] 4mg Take 1 [facility] (ZOFRAN 7-22 tablet by ity of ODT) 4 mg 00:00: mouth [place] disintegrat 00 every 8 Medic al ing tablet (eight) Branch hours as needed for Nausea and Vomiting (N/V). ondansetron 2020-0 Yes [id number] 4mg Take 1 [facility] (ZOFRAN 7-22 tablet by ity of ODT) 4 mg 00:00: mouth [place] disintegrat 00 every 8 Medic al ing tablet (eight) Branch hours as needed for Nausea and Vomiting (N/V). ondansetron 2020-0 Yes [id number] 4mg Take 1 [facility] (ZOFRAN 7-22 tablet by ity of ODT) 4 mg 00:00: mouth [place] disintegrat 00 every 8 Medic al ing tablet (eight) Branch hours as needed for Nausea and Vomiting (N/V). ondansetron 2020-0 Yes [id number] 4mg Take 1 [facility] (ZOFRAN 7-22 tablet by ity of ODT) 4 mg 00:00: mouth [place] disintegrat 00 every 8 Medic al ing tablet (eight) Branch hours as needed for Nausea and Vomiting (N/V). ondansetron 2020-0 Yes [id number] 4mg Take 1 [facility] (ZOFRAN 7-22 tablet by ity of ODT) 4 mg 00:00: mouth [place] disintegrat 00 every 8 Medic al ing tablet (eight) Branch hours as needed for Nausea and Vomiting (N/V). ondansetron 2020-0 Yes [id number] 4mg Take 1 [facility] (ZOFRAN 7-22 tablet by ity of ODT) 4 mg 00:00: mouth [place] disintegrat 00 every 8 Medic al ing tablet (eight) Branch hours as needed for Nausea and Vomiting (N/V). ondansetron 2020-0 Yes [id number] 4mg Take 1 [facility] (ZOFRAN 7-22 tablet by ity of ODT) 4 mg 00:00: mouth [place] disintegrat 00 every 8 Medic al ing tablet (eight) Branch hours as needed for Nausea and Vomiting (N/V). ondansetron 2020-0 Yes [id number] 4mg Take 1 [facility] (ZOFRAN 7-22 tablet by ity of ODT) 4 mg 00:00: mouth [place] disintegrat 00 every 8 Medic al ing tablet (eight) Branch hours as needed for Nausea and Vomiting (N/V). ondansetron 2020-0 Yes [id number] 4mg Take 1 [facility] (ZOFRAN 7-22 tablet by ity of ODT) 4 mg 00:00: mouth [place] disintegrat 00 every 8 Medic al ing tablet (eight) Branch hours as needed for Nausea and Vomiting (N/V). ondansetron 2020-0 Yes [id number] 4mg Take 1 [facility] (ZOFRAN 7-22 tablet by ity of ODT) 4 mg 00:00: mouth [place] disintegrat 00 every 8 Medic al ing tablet (eight) Branch hours as needed for Nausea and Vomiting (N/V). ondansetron 1-0 Yes [id number] 4mg Take 1 [facility] (ZOFRAN 7-22 tablet [...] by mouth ity of tablet 13:17: at [place] [address] bedtime. Medical Branch allopurinoL 2020-0 Yes 100mg Take 100 [facility] nivers 100 mg 6-24 mg by ity of tablet 13:17: mouth [place] 52 daily. Medical Branch atorvastati 2020-0 Yes 10mg Take 10 mg [facility] n 10 mg 6-24 by mouth ity of tablet 13:17: at [place] [address] bedtime. Medical Branch allopurinoL 2020-0 Yes 100mg Take 100 [facility] nivers 100 mg 6-24 mg by ity of tablet 13:17: mouth [place] 52 daily. Medical Branch atorvastati 2020-0 Yes 10mg Take 10 mg [facility] n 10 mg 6-24 by mouth ity of tablet 13:17: at [place] [address] bedtime. Medical Branch allopurinoL 2020-0 Yes 100mg Take 100 [facility] nivers 100 mg 6-24 mg by ity of tablet 13:17: mouth [place] 52 daily. Medical Branch atorvastati 2020-0 Yes 10mg Take 10 mg Univers n 10 mg 6-24 by mouth ity of tablet 13:17: at [place] [address] bedtime. Medical Branch allopurinoL 2020-0 Yes 100mg [...] by mouth ity of tablet 13:17: at [place] 52 bedtime. Medical Branch allopurinoL 2020-0 Yes [...] by mouth ity of tablet 13:17: at [place] 52 bedtime. Medical Branch allopurinoL 2020-0 Yes 100mg Take 100 U nivers 100 mg 6-24 mg by ity of tablet 13:17: mouth [place] 52 daily. Medical Branch atorvastati 2020-0 Yes 10mg Take 10 mg Univers n 10 mg 6-24 by mouth ity of tablet 13:17: at [place] 52 bedtime. Medical Branch allopurinoL 2020-0 Yes 100mg Take 100 U nivers 100 mg 6-24 mg by ity of tablet 13:17: mouth [place] 52 daily. Medical Branch atorvastati 2020-0 Yes 10mg Take 10 mg Univers n 10 mg 6-24 by mouth ity of tablet 13:17: at [place] [address] bedtime. Medical Branch allopurinoL 2020-0 Yes 100mg Take 100 U nivers 100 mg 6-24 mg by ity of tablet 13:17: mouth [place] 52 daily. Medical Branch atorvastati 2020-0 Yes 10mg Take 10 mg Univers n 10 mg 6-24 by mouth ity of tablet 13:17: at [place] [address] bedtime. Medical Branch allopurinoL 2020-0 Yes 100mg Take 100 U nivers 100 mg 6-24 mg by ity of tablet 13:17: mouth [place] 52 daily. Medical Branch atorvastati 2020-0 Yes 10mg Take 10 mg Univers n 10 mg 6-24 by mouth ity of tablet 13:17: at [place] [address] bedtime. Medical Branch allopurinoL 2020-0 Yes 100mg Take 100 U nivers 100 mg 6-24 mg by ity of tablet 13:17: mouth [place] 52 daily. Medical Branch atorvastati 2020-0 Yes 10mg Take 10 mg Univers n 10 mg 6-24 by mouth ity of tablet 13:17: at [place] [address] bedtime. Medical Branch allopurinoL 2020-0 Yes 100mg Take 100 U nivers 100 mg 6-24 mg by ity of tablet 13:17: mouth [place] 52 daily. Medical Branch atorvastati 2020-0 Yes 10mg Take 10 mg Univers n 10 mg 6-24 by mouth ity of tablet 13:17: at [place] [address] bedtime. Medical Branch allopurinoL 2020-0 Yes 100mg [...] by mouth ity of tablet 13:17: at [place] 52 bedtime. Medical Branch allopurinoL 2020-0 Yes 100mg Take 100 U nivers 100 mg 6-24 mg by ity of tablet 13:17: mouth [place] 52 daily. Medical Branch atorvastati 2020-0 Yes 10mg Take 10 mg Univers n 10 mg 6-24 by mouth ity of tablet 13:17: at [place] [address] bedtime. Medical Branch allopurinoL 2020-0 Yes 100mg Take 100 U nivers 100 mg 6-24 mg by ity of tablet 13:17: mouth [place] 52 daily. Medical Branch atorvastati 2020-0 Yes 10mg Take 10 mg Univers n 10 mg 6-24 by mouth ity of tablet 13:17: at [place] [address] bedtime. Medical Branch allopurinoL 2020-0 Yes 100mg Take 100 U nivers 100 mg 6-24 mg by ity of tablet 13:17: mouth [place] 52 daily. Medical Branch atorvastati 2020-0 Yes 10mg Take 10 mg Univers n 10 mg 6-24 by mouth ity of tablet 13:17: at [place] [address] bedtime. Medical Branch allopurinoL 2020-0 Yes 100mg Take 100 U nivers 100 mg 6-24 mg by ity of tablet 13:17: mouth [place] 52 daily. Medical Branch atorvastati 2020-0 Yes 10mg Take 10 mg Univers n 10 mg 6-24 by mouth ity of tablet 13:17: at [place] [address] bedtime. Medical Branch allopurinoL 2020-0 Yes 100mg [...] by mouth ity of tablet 13:17: at [place] [address] bedtime. Medical Branch allopurinoL 2020-0 Yes 100mg Take 100 U nivers 100 mg 6-24 mg by ity of tablet 13:17: mouth [place] 52 daily. Medical Branch atorvastati 2020-0 Yes 10mg Take 10 mg Univers n 10 mg 6-24 by mouth ity of tablet 13:17: at [place] [address] bedtime. Medical Branch allopurinoL 2020-0 Yes 100mg Take 100 U nivers 100 mg 6-24 mg by ity of tablet 13:17: mouth [place] 52 daily. Medical Branch atorvastati 2020-0 Yes 10mg Take 10 mg Univers n 10 mg 6-24 by mouth ity of tablet 13:17: at [place] [address] bedtime. Medical Branch allopurinoL 2020-0 Yes 100mg Take 100 U nivers 100 mg 6-24 mg by ity of tablet 13:17: mouth [place] 52 daily. Medical Branch atorvastati 2020-0 Yes 10mg Take 10 mg Univers n 10 mg 6-24 by mouth ity of tablet 13:17: at [place] [address] bedtime. Medical Branch allopurinoL 2020-0 Yes 100mg Take 100 U nivers 100 mg 6-24 mg by ity of tablet 13:17: mouth [place] 52 daily. Medical Branch atorvastati 2020-0 Yes 10mg Take 10 mg Univers n 10 mg 6-24 by mouth ity of tablet 13:17: at [place] [address] bedtime. Medical Branch allopurinoL 2020-0 Yes 100mg Take 100 U nivers 100 mg 6-24 mg by ity of tablet 13:17: mouth [place] 52 daily. Medical Branch atorvastati 2020-0 Yes 10mg Take 10 mg Univers n 10 mg 6-24 by mouth ity of tablet 13:17: at [place] [address] bedtime. Medical Branch allopurinoL 2020-0 Yes 100mg [...] by mouth ity of tablet 13:17: at [place] 52 bedtime. Medical Branch allopurinoL 2020-0 Yes 100mg Take 100 U nivers 100 mg 6-24 mg by ity of tablet 13:17: mouth [place] 52 daily. Medical Branch atorvastati 2020-0 Yes 10mg Take 10 mg Univers n 10 mg 6-24 by mouth ity of tablet 13:17: at [place] 52 bedtime. Medical Branch allopurinoL 2020-0 Yes 100mg Take 100 U nivers 100 mg 6-24 mg by ity of tablet 13:17: mouth [place] 52 daily. Medical Branch atorvastati 2020-0 Yes 10mg Take 10 mg Univers n 10 mg 6-24 by mouth ity of tablet 13:17: at [place] [address] bedtime. Medical Branch allopurinoL 2020-0 Yes 100mg Take 100 U nivers 100 mg 6-24 mg by ity of tablet 13:17: mouth [place] 52 daily. Medical Branch atorvastati 2020-0 Yes 10mg Take 10 mg Univers n 10 mg 6-24 by mouth ity of tablet 13:17: at [place] [address] bedtime. Medical Branch allopurinoL 2020-0 Yes 100mg Take 100 U nivers 100 mg 6-24 mg by ity of tablet 13:17: mouth [place] 52 daily. Medical Branch atorvastati 2020-0 Yes 10mg Take 10 mg Univers n 10 mg 6-24 by mouth ity of tablet 13:17: at [place] [address] bedtime. Medical Branch allopurinoL 2020-0 Yes 100mg Take 100 U nivers 100 mg 6-24 mg by ity of tablet 13:17: mouth [place] 52 daily. Medical Branch atorvastati 2020-0 Yes 10mg Take 10 mg Univers n 10 mg 6-24 by mouth ity of tablet 13:17: at [place] [address] bedtime. Medical Branch allopurinoL 2020-0 Yes 100mg Take 100 U nivers 100 mg 6-24 mg by ity of tablet 13:17: mouth [place] 52 daily. Medical Branch atorvastati 2020-0 Yes 10mg Take 10 mg Univers n 10 mg 6-24 by mouth ity of tablet 13:17: at [place] [address] bedtime. Medical Branch allopurinoL 2020-0 Yes 100mg Take 100 U nivers 100 mg 6-24 mg by ity of tablet 13:17: mouth [place] 52 daily. Medical Branch atorvastati 2020-0 Yes 10mg Take 10 mg Univers n 10 mg 6-24 by mouth ity of tablet 13:17: at [place] [address] bedtime. Medical Branch allopurinoL 2020-0 Yes 100mg Take 100 U nivers 100 mg 6-24 mg by ity of tablet 13:17: mouth [place] 52 daily. Medical Branch atorvastati 2020-0 Yes 10mg Take 10 mg Univers n 10 mg 6-24 by mouth ity of tablet 13:17: at [place] [address] bedtime. Medical Branch propranolol 2020-0 Yes 80mg Take 80 mg Univers 80 mg 6-24 by mouth 2 ity of tablet 13:12: (two) [place] 38 times Medical daily. Branch propranolol 2020-0 Yes 80mg Take 80 mg Univers 80 mg 6-24 by mouth 2 ity of tablet 13:12: (two) [place] 38 times Medical daily. Branch propranolol 2020-0 Yes 80mg Take 80 mg Univers 80 mg 6-24 by mouth 2 ity of tablet 13:12: (two) [place] 38 times Medical daily. Branch propranolol 2020-0 Yes 80mg Take 80 mg Univers 80 mg 6-24 by mouth 2 ity of tablet 13:12: (two) [place] 38 times Medical daily. Branch propranolol 2020-0 [...] mouth 2 ity of tablet 13:12: (two) [place] 38 times Medical daily. Branch propranolol 2020-0 Yes 80mg Take 80 mg Univers 80 mg 6-24 by mouth 2 ity of tablet 13:12: (two) [place] 38 times Medical daily. Branch propranolol 2020-0 Yes 80mg Take 80 mg Univers 80 mg 6-24 by mouth 2 ity of tablet 13:12: (two) [place] 38 times Medical daily. Branch propranolol 2020-0 Yes 80mg Take 80 mg Univers 80 mg 6-24 by mouth 2 ity of tablet 13:12: (two) [place] 38 times Medical daily. Branch propranolol 2020-0 [...] 2022-07-26 13:22:00 135 mm[Hg] Univer sity of [facility] Diastolic blood 2022-07-26 13:22:00 78 mm[Hg] [facility] Heart rate 2022-07-26 13:22:00 85 /min [facility] ty [facility] Respiratory rate 2022-07-26 13:22:00 18 /min [facility] Body height 2022-07-26 13:22:00 167.6 cm [facility] Body weight 2022-07-26 13:22:00 97.523 kg [facility] BMI 2022-07-26 13:22:00 34.70 kg/m2 [facility] Systolic blood 2022-02-15 14:59:00 131 mm[Hg] Univer sity of [facility] Diastolic blood 2022-02-15 14:59:00 70 mm[Hg] Unive rsity of [facility] Heart rate 2022-02-15 14:59:00 81 /min Universi ty [facility] Respiratory rate 2022-02-15 14:59:00 18 /min [facility] Body height 2022-02-15 14:59:00 167.6 cm [facility]i ty [facility] [place] [facility] [place] Body weight 2022-02-15 14:59:00 102.967 kg Universi ty [facility] [place] [facility] BMI 2022-02-15 14:59:00 36.64 kg/m2 Universi ty [facility] [place] [facility] Respiratory rate 2022-01-11 17:11:00 18 /min Univ ersity of [facility] Body height 2022-01-11 17:11:00 167.6 cm Universi ty of [place] [facility] Body weight 2022-01-11 17:11:00 100.699 kg Universi ty of [place] [facility] BMI 2022-01-11 17:11:00 35.83 kg/m2 Universi ty of [facility] Systolic blood 2021-08-24 14:24:00 133 mm[Hg] Univer sity of pressure [facility] Diastolic blood 2021-08-24 14:24:00 73 mm[Hg] Unive rsity of pressure [facility] Heart rate 2021-08-24 14:24:00 69 /min Universi ty [facility] [place] [facility] [place] Respiratory rate 2021-08-24 14:24:00 18 /min Univ ersity [facility] [place] [facility] [place] Body height 2021-08-24 14:24:00 167.6 cm [facility]i ty [facility] [place] [facility] Body weight 2021-08-24 14:24:00 100.245 kg [facility]i ty [facility] [place] [facility] BMI 2021-08-24 14:24:00 35.67 kg/m2 Universi ty of [facility] Oxygen saturation in 2021-06-07 15:30:00 96 /min [facility] Arterial blood by [facility] Pulse oximetry Branch Body temperature 2021-06-07 14:20:30 37.44 [facility] Procedures Procedure Date / Time Performed Performing Clinician Jael e LITHIUM 2022-07-26 14:49:00 Angela Sage [facility] PATIENT 2022-07-26 13:16:12 Doctor Unassigned, No Univer sity of [place] FINANCIAL POLICY Name Medical Branch [facility] PATIENT 2022-07-26 13:16:12 Doctor Unassigned, No Univer sity of [place] FINANCIAL POLICY Name Medical Branch EXTERNAL PROVIDER 2022-04-08 06:01:00 Doctor Unassigned, No Univ ersity of [place] RECORDS Name Medical Branch EXTERNAL PROVIDER 2022-04-08 06:01:00 Doctor Unassigned, No Univ ers[facility] of [place] RECORDS Name Medical Branch EXTERNAL PROVIDER 2022-02-21 06:01:00 Doctor Unassigned, No Univ ersity of [place] RECORDS Name Medical Branch EXTERNAL PROVIDER 2022-02-21 06:01:00 Doctor Unassigned, No Univ ersity of [place] RECORDS Name Medical Branch [facility] 2022-02-15 15:58:00 Angela Sage [facility] CONSENT/REFUSAL FOR 2022-01-11 17:10:16 Doctor Unassigned, No Un iversity of [place] DIAGNOSIS AND Name Medical Branch TREATMENT CONSENT/REFUSAL FOR 2022-01-11 17:10:16 Doctor Unassigned, No [facility] [place] DIAGNOSIS AND Name Medical Branch TREATMENT Plan of Care Planned Activity Planned Date Details Comments Source Medication 2022-09-28 clonazePAM 1 mg [facility] 00:00:00 tablet [code = Medical [facility] h [id number]] Encounters Start End Encounter Admission Attending Care Care Encounter Source Date/Time Date/Time Type Type Clinicians Facility Department ID 2020-12-13 Emergency [facility] [id number] Univers 10:09:54 ity of [facility] 2020-12-11 Emergency [facility] [id number] Univers 04:02:45 ity of [facility] 2022-10-04 2022-10-04 Outpatient R [facility] [id number] Univers 09:30:00 09:30:00 ity of [facility] 2022-09-06 2022-09-06 Outpatient R UNA HESTER [facility] [id number] Univers 08:45:00 08:45:00 UNA HESTER ity of [facility] 2022-09-06 2022-09-06 Travel 1.2.840.1 1.2.748.055 [id number] Univers 00:00:00 00:00:00 03372.1.1 350.1.13.10 ity of 3.104.2.7 4.[place].7.3.698 [place] .3.[place] 084.8 Medica l .8 Branch 2022-07-26 2022-07-26 [employer] [facility] 1.2.840.2 [id number] Univers 11:00:00 11:15:00 Visit Pcp-Lab 65016.1.1 ity of 3.104.2.7 [place] .3.846941 Medica l .8 [place] 2022-07-26 2022-07-26 Outpatient Tonya UNA HESTER [facility] [id number] Univers 08:45:00 09:37:46 UNA HESTER [facility] 2022-07-26 2022-07-26 Orders Doctor 1.2.840.6 [id number] Univers 00:00:00 00:00:00 Only Unassigned, 69306.1.1 ity of [place] 3.104.2.7 [place] .3.822321 Medica l .8 [place] 2022-07-26 2022-07-26 Travel 1.2.840.1 1.2.002.997 [id number] Univers 00:00:00 00:00:00 86665.1.1 350.1.13.10 ity of 3.104.2.7 4.2.7.3.698 [place] .3.603029 084.8 Medica l .8 [place] 2022-07-24 2022-07-24 Outpatient SFA SFA [id number] Robert 13:24:12 13:24:12 0612 [facility] 2022-06-27 2022-06-27 Outpatient SFA SFA [id number] Robert 13:49:18 13:49:18 0516 [facility] 2022-06-21 2022-06-21 Outpatient SFA SFA [id number] Robert 08:52:50 08:52:50 0510 [facility] 2022-06-15 2022-06-15 Outpatient SFA SFA [id number] Robert 15:23:34 15:23:34 0504 [facility] 2022-05-31 2022-05-31 Outpatient Tonya UNA HESTER [facility] [id number] Univers 08:45:00 08:45:00 UNA HESTER [facility] 2022-05-30 2022-05-30 Outpatient SFA SFA [id number] Robert 11:55:27 11:55:27 0418 [facility] [place] 2022-05-23 2022-05-23 Outpatient [facility] [id number] Robert 11:17:29 11:17:29 0411 [facility] [place] 2022-05-12 2022-05-12 Outpatient [facility] [id number] Robert 08:06:11 08:06:11 0331 [facility] [place] 2022-05-11 2022-05-11 Outpatient [facility] [id number] Robert 13:45:44 13:45:44 0330 F [place] 2022-04-08 2022-04-08 Orders Doctor 1.2.840.7 [id number] Univers 00:00:00 00:00:00 Only Unassigned, 36086.1.1 ity of [place] 3.104.2.7 [place] .3.806614 Medica l .8 [place] 2022-02-21 2022-02-21 Orders Doctor 1.2.840.1 [id number] Univers 00:00:00 00:00:00 Only Unassigned, 32320.1.1 ity of [place] 3.104.2.7 [place] .3.111853 Medica l .8 [place] 2022-02-15 2022-02-15 [employer] [facility] 1.2.840.9 [id number] Univers 13:30:00 13:45:00 Visit Pcp-Lab 93162.1.1 ity of 3.104.2.7 [place] .3.836831 Medica l .8 [place] 2022-02-15 2022-02-15 Outpatient R SELF, [facility] [id number] Univers 08:45:00 10:52:26 DERRELL ity o f [facility] 2022-02-15 2022-02-15 Travel 1.2.840.1 1.2.734.443 [id number] Univers 00:00:00 00:00:00 02255.1.1 350.1.13.10 ity of 3.104.2.7 4.[place].7.3.698 [place] .3.723[place] 084.8 Medica l .8 [place] 2022-01-11 2022-01-11 Outpatient R UNA HESTER [facility] [id number] Univers 11:00:00 12:39:46 UNA HESTER [facility] 2022-01-11 2022-01-11 Orders Doctor 1.2.840.7 [id number] Univers 00:00:00 00:00:00 Only Unassigned, 80773.1.1 ity of [place] 3.104.2.7 [place] .3.875499 Medica l .8 [place] 2022-01-11 2022-01-11 Travel 1.2.840.1 1.2.995.968 [id number] Univers 00:00:00 00:00:00 61616.1.1 350.1.13.10 ity of 3.104.2.7 4.[place].7.3.698 [place] .3.096239 084.8 Medica l .8 [place] 2021-11-24 2021-11-24 Outpatient R SAAVEDRA, [facility] [id number] Univers 09:30:00 09:30:00 IGOR [facility] 2021-11-16 2021-11-16 Outpatient R UNA HESTER [facility] [id number] Univers 11:00:00 11:00:00 UNA HESTER [facility] 2021-10-26 2021-10-26 Outpatient R SELF, [facility] [id number] Univers 08:00:00 08:00:00 DERRELL wesley o [facility] 2021-10-20 2021-10-20 Outpatient R QUENTIN, [facility] [id number] Univers 10:00:00 10:00:00 IGOR [facility] 2021-10-03 2021-10-03 Outpatient R JENNIFER, [facility] [id number] Univers 14:30:00 14:30:00 REX itdl [facility] 2021-09-21 2021-09-21 Outpatient R SELF, [facility] [id number] Univers 09:30:00 09:30:00 DERRELL martinez [facility] 2021-08-24 2021-08-24 Outpatient R SELF, [facility] [id number] Univers 09:30:00 10:41:34 DERRELL martinez [facility] 2021-08-24 2021-08-24 Travel 1.2.840.1 1.2.680.387 [id number] Univers 00:00:00 00:00:00 09187.1.1 350.1.13.10 ity of 3.104.2.7 [place].7.3.698 [place] .3.295262 084.8 Medica l .8 [place] 2021-07-25 2021-07-25 Outpatient R SELF, [facility] [id number] Univers 09:00:00 09:00:00 DERRELL [facility] 2021-06-22 2021-06-22 Outpatient R UNA HESTER [facility] [id number] Univers 11:15:00 12:18:05 UNA HESTER dl [facility] 2021-06-22 2021-06-22 Outpatient R UNA HESTER [facility] [id number] Univers 11:15:00 11:15:00 UNA HESTER [facility] 2021-06-22 2021-06-22 Travel 1.2.840.1 1.2.211.393 [id number] Univers 00:00:00 00:00:00 55722.1.1 350.1.13.10 ity of 3.104.2.7 4.[place].7.3.698 [place] .3.694382 084.8 Medica l .8 [place] 2021-06-20 2021-06-20 Outpatient R SELF, [facility] [id number] Univers 11:15:00 11:15:00 DERRELL [facility] 2021-06-20 2021-06-20 Outpatient R SELF, [facility] [id number] Univers 11:15:00 11:15:00 DERRELL [facility] 2021-06-08 2021-06-08 Outpatient R ATANASOV HILARY [facility] [id number] Univers 09:20:00 09:20:00 TERESAROBELRACHELE ity of [facility] 2021-06-08 2021-06-08 Patient Saavedra, 1.2.840.5 [id number] Univers 00:00:00 00:00:00 Secure Msg Igor 43560.1.1 ity of [place] 3.104.2.7 [place] .3.836949 Medica l .8 [place] 2021-06-07 2021-06-07 Emergency X [place], [facility] ERT [id number] Univers 09:13:00 10:50:00 LULY w[facility]ley of [facility] 2021-06-07 2021-06-[address] [facility] 1.2.562.566 [id number] Univers 09:13:00 10:50:00 Luly [place] 350.1.13.10 i ty of [place]OLI[place] 4.2.7.2.686 [facility] [id number] [facility] 084 [place] 2021-06-07 2021-06-07 Emergency Ny, 1.2.840.9 [id number] Univers 09:13:00 10:50:00 Luly 18744.1.1 ity of 3.104.2.7 [place] .3.809963 Medica l .8 [place] 2021-06-07 2021-06-07 Outpatient R QUENTIN, [facility] [id number] Univers 00:00:00 00:00:00 IGOR wesley o f [facility] 2021-06-07 2021-06-07 Orders Doctor MOO 1.2.840.114 [id number] Univers 00:00:00 00:00:00 Only Unassigned, QUITA 350.1.13.10 ity of [place] [facility] 4.2.7.2.686 [facility] [id number] [facility] 009 Branch 2021-06-07 2021-06-07 Travel 1.2.840.1 1.2.698.142 [id number] Univers 00:00:00 00:00:00 59281.1.1 350.1.13.10 ity of 3.104.2.7 4.[place].7.3.698 [place] .3.972710 084.8 Medica l .8 [place] 2021-06-07 2021-06-07 Orders Doctor 1.2.840.4 [id number] Univers 00:00:00 00:00:00 Only Unassigned, 13389.1.1 ity of [place] 3.104.2.7 [place] .3.784843 Medica l .8 Branch 2021-06-03 2021-06-03 Travel 1.2.840.1 1.2.972.820 [id number] Univers 00:00:00 00:00:00 95357.1.1 350.1.13.10 ity of 3.104.2.7 4.2.7.3.698 [place] .3.896108 084.8 Medica l .8 [place] 2021-05-27 2021-05-27 Outpatient R SAAVEDRA, [facility] [id number] Univers 00:00:00 00:00:00 IGOR [facility] 2021-05-27 2021-05-27 Outpatient [facility], [facility] [id number] Univers 00:00:00 00:00:00 IGOR wesley o [facility] 2021-05-25 2021-05-25 Patient Doctor 1.2.840.6 [id number] Univers 00:00:00 00:00:00 Secure Msg Unassigned, 24385.1.1 ity of [place] 3.104.2.7 [place] .3.891708 Medica l .8 [place] 2021-05-25 2021-05-25 Patient Doctor 1.2.840.3 [id number] Univers 00:00:00 00:00:00 Secure Msg Unassigned, 58377.1.1 ity of [place] 3.104.2.7 [place] .3.800780 Medica l .8 Branch 2021-05-20 2021-05-20 Telephone Jones 1.2.840.7 [id number] Univers 00:00:00 00:00:00 Best, 47227.1.1 ity of [place] 3.104.2.7 [place] .3.883790 Medica l .8 Branch 2021-05-20 2021-05-20 Telephone Jones 1.2.840.8 [id number] Univers 00:00:00 00:00:00 Best, 99412.1.1 ity of [place] 3.104.2.7 [place] .3.845609 Medica l .8 Branch 2021-05-18 2021-05-18 Travel 1.2.840.1 1.2.520.944 [id number] Univers 00:00:00 00:00:00 96433.1.1 350.1.13.10 ity of 3.104.2.7 4.2.7.3.698 [place] .3.060857 084.8 Medica l .8 Branch 2021-05-18 2021-05-18 Travel 1.2.840.1 1.2.478.931 [id number] Univers 00:00:00 00:00:00 36263.1.1 350.1.13.10 ity of 3.104.2.7 4.2.7.3.698 [place] .3.447123 084.8 Medica l .8 Branch 2021-05-17 2021-05-17 [employer] [facility] [place] 1.2.840.114 [id number] Univers 13:15:00 13:30:00 Visit Igor Saavedra PRIMARY 350.1.13.1 0 ity of [place].2.686 [place] [id number] Hi dical 366 Branch 2021-05-17 2021-05-17 [employer] Igor Saavedra 1.2.840.1 1 [id number] Univers 13:15:00 13:30:00 Visit Pcp-Lab 58998.1.1 ity of 3.104.2.7 [place] .3.092397 Medica l .8 Branch 2021-05-17 2021-05-17 [employer] Igor Saavedra 1.2.840.1 1 [id number] Univers 13:15:00 13:30:00 Visit Pcp-Lab 67146.1.1 ity of 3.104.2.7 [place] .3.379298 Medica l .8 [place] 2021-05-17 2021-05-17 [id number] Univers 09:00:00 10:25:05 IGOR bricedl [facility] 2021-05-17 2021-05-17 Office Igor Saavedra 1.2.840.1 [id number] Univers 09:00:00 10:25:05 Visit Deonte Joel 18830.1.1 ity of 3.104.2.7 [place] .3.570611 Medica l .8 [place] 2021-05-17 2021-05-17 Outpatient R [facility] [id number] Univers 09:00:00 10:25:05 [facility] 2021-[facility] 2021-05-17 Outpatient R [facility] [id number] Univers 09:30:00 09:30:00 [facility] 2021-05-17 2021-05-17 Travel 1.2.840.1 1.2.365.727 [id number] Univers 00:00:00 00:00:00 63487.1.1 350.1.13.10 ity of 3.104.2.7 4.2.7.3.698 [place] .3.390489 084.8 Medica l .8 [place] 2021-05-17 2021-05-17 Travel 1.2.840.1 1.2.695.285 [id number] Univers 00:00:00 00:00:00 35870.1.1 350.1.13.10 ity of 3.104.2.7 4.2.7.3.698 [place] .3.660527 084.8 Medica l .8 [place] 2021-04-26 2021-04-26 Outpatient R [facility] [id number] Univers 09:00:00 09:00:00 ity [facility] 2021-04-26 2021-04-26 Outpatient R WENDY [facility] [id number] Univers 09:00:00 09:00:00 ATTENDING ity [facility] 2021-04-20 2021-04-20 Outpatient R UNA HESTER [facility] [id number] Univers 08:45:00 08:45:00 [facility] 2021-04-11 Outpatient R PAULASALLY Matos [facility] [id number] Univers 08:40:00 08:40:00 SALLY MITCHELL [facility] 2021-04-11 2021-04-11 Outpatient Tonya MITCHELL SALLY [facility] [id number] Univers 08:40:00 08:40:00 SALLY MITCHELL [facility] 2021-03-21 2021-03-21 Outpatient R PAULASALLY Matos [facility] [id number] Univers 08:00:00 08:00:00 PAULASALLY [facility] 2021-03-17 2021-03-17 Patient Doctor 1.2.840.1 [id number] Univers 00:00:00 00:00:00 Secure Msg Unassigned, 43982.1.1 ity of [place] 3.104.2.7 [place] .3.629593 Medica l .8 [place] 2021-03-17 2021-03-17 Patient Doctor 1.2.840.1 [id number] Univers 00:00:00 00:00:00 Secure Msg Unassigned, 46307.1.1 ity of [place] 3.104.2.7 [place] .3.796444 Medica l .8 [place] 2021-03-17 2021-03-17 Patient Doctor 1.2.840.2 [id number] Univers 00:00:00 00:00:00 Secure Msg Unassigned, 68111.1.1 ity of [place] 3.104.2.7 [place] .3.650356 Medica l .8 [place] 2021-03-16 2021-03-16 Military Pilot [place] 1.2.840.1 [id number] Univers 13:15:00 13:30:00 Visit Pcp-Lab 67268.1.1 ity of 3.104.2.7 [place] .3.367976 Medica l .8 [place] 2021-03-16 2021-03-16 Military Pilot [place] 1.2.840.1 1020 [id number] Univers 13:15:00 13:30:00 Visit Pcp-Lab 34017.1.1 ity of 3.104.2.7 [place] .3.387671 Medica l .8 [place] 2021-03-16 2021-03-16 Outpatient Tonya LOCKWOOD [facility] [id number] Univers 13:15:00 13:15:00 RALEIGH [facility] 2021-03-16 2021-03-16 [facility] [id number] Univers 12:00:00 12:09:51 [facility] 2021-03-16 [facility] [id number] Univers 12:00:00 12:09:51 [facility] 2021-03-16 2021-03-16 Outpatient Tonya HESTER [facility] [id number] Univers 12:00:00 12:00:00 UNA HESTER [facility] 2021-03-16 2021-03-16 Travel 1.2.840.1 1.2.162.772 [id number] Univers 00:00:00 00:00:00 17073.1.1 350.1.13.10 ity of 3.104.2.7 4.2.7.3.698 [facility] .3.948625 084.8 Medica l .8 [place] 2021-03-16 2021-03-16 Travel 1.2.840.1 1.2.184.787 [id number] Univers 00:00:00 00:00:00 38352.1.1 350.1.13.10 ity of 3.104.2.7 [place].3.698 [place].9274[place] 084.8 Medica l .8 [place] 2021-03-11 2021-03-[address] [facility] [id number] Univers 09:44:00 13:06:00 HALIMA ity of [facility] 2021-03-11 2021-03-11 Emergency Geeta, 1.2.840.1 [id number] Univers 09:44:00 13:06:00 Halima Cates 50110.1.1 ity of 3.104.2.7 [place] .3.603397 Medica l .8 [place] 2021-03-11 2021-03-[address] [facility] ERT [id number] Univers 09:44:00 13:06:00 HALIMA ity of [facility] 2021-03-11 2021-03-11 Emergency Geeta, 1.2.840.7 [id number] Univers 09:44:00 13:06:00 Halima Cates 43808.1.1 ity of 3.104.2.7 [place] .3.523721 Medica l .8 [place] 2021-03-11 2021-03-[address] [facility] ERT [id number] Univers 09:44:00 13:06:00 HALIMA ity of [facility] 2021-03-11 2021-03-[address] [facility] ERT [id number] Univers 09:44:00 09:44:00 HALIMA ity of [facility] 2021-03-11 2021-03-11 Travel 1.2.840.1 1.2.855.456 [id number] Univers 00:00:00 00:00:00 68574.1.1 350.1.13.10 ity of 3.104.2.7 4[place].7.3.698 [place] .3.216356 084.8 Medica l .8 [place] 2021-03-11 2021-03-11 Travel 1.2.840.1 1.2.673.835 [id number] [id number] Univers 00:00:00 00:00:00 40672.1.1 350.1.13.10 ity of 3.104.2.7 4.[place].7.3.698 [place] .3.608313 084.8 Medica l .8 [place] 2021-03-08 2021-03-08 Military Pilot [place] 1.2.840.1 1020 [id number] Univers 15:00:00 15:15:00 Visit Pcp-Lab 19580.1.1 ity of 3.104.2.7 [place] .3.184909 Medica l .8 [place] 2021-03-08 2021-03-08 Military Pilot [place] 1.2.840.1 1020 [id number] Univers 15:00:00 15:15:00 Visit Pcp-Lab 82359.1.1 ity of 3.104.2.7 [place] .3.631672 Medica l .8 [place] 2021-03-08 2021-03-08 Outpatient R FABIÁN, [facility] [id number] Univers 15:00:00 15:00:00 RALEIGH ity [facility] 2021-01-31 2021-01-31 Outpatient R SELF, [facility] [id number] Univers 10:15:00 10:55:06 DERRELL ity [facility] 2020-12-29 2020-12-29 Outpatient R SELF, [facility] [id number] Univers 08:00:00 08:41:00 DERRELL lupillo [facility] 2020-12-29 2020-12-29 Outpatient R SELF, [facility] [id number] Univers 08:00:00 08:41:00 DERRELL lupillo [facility] 2020-12-29 2020-12-29 Travel 1.2.840.1 1.2.366.641 [id number] Univers 00:00:00 00:00:00 85986.1.1 350.1.13.10 ity of 3.104.2.7 [place].3.698 [place] .3.713151 084.8 Medica l .8 [place] 2020-12-29 2020-12-29 Travel 1.2.840.1 1.2.575.148 [id number] [id number] Univers 00:00:00 00:00:00 77498.1.1 350.1.13.10 ity of 3.104.2.7 4.[place]7.3.698 [place] .3.427327 084.8 Medica l .8 [place] 2020-12-22 2020-12-22 Outpatient R SELF, [facility] [id number] Univers 09:30:00 09:30:00 DERRELL wesley [facility] 2020-12-22 2020-12-22 Outpatient R SELF, [facility] [id number] Univers 09:30:00 09:30:00 DERRELL walters [facility] 2020-11-10 2020-11-10 Outpatient R SHE, [facility] [id number] Univers 09:30:00 09:30:00 [facility]-10 2020-11-10 Orders Doctor 1.2.840.9 [id number] Univers 00:00:00 00:00:00 Only Unassigned, 27282.1.1 ity of [place] 3.104.2.7 [place] .3.790702 Medica l .8 [place] 2020-11-10 2020-11-10 Travel 1.2.840.1 1.2.800.535 0575 [id number] Univers 00:00:00 00:00:00 14834.1.1 350.1.13.10 ity of 3.104.2.7 4[place].7.3.698 [place] .3.079445 084.8 Medica l .8 [place] 2020-10-11 2020-10-11 Outpatient R SELF, [facility] [id number] Univers 08:00:00 08:00:00 DERRELL walters [facility] 2020-10-11 2020-10-11 Travel 1.2.840.1 1.2.474.595 1034 [id number] Univers 00:00:00 00:00:00 66315.1.1 350.1.13.10 ity of 3.104.2.7 4.[place].7.3.698 [place] .3.949076 084.8 Medica l .8 [place] 2020-09-13 2020-09-13 Outpatient R SELF, [facility] [id number] Univers 08:00:00 08:00:00 DERRELL ity o f [facility] 2020-09-13 2020-09-13 Travel 1.2.840.1 1.2.951.369 [id number] Univers 00:00:00 00:00:00 89248.1.1 350.1.13.10 ity of 3.104.2.7 4.[place].7.3.698 [place] .3.804674 084.8 Medica l .8 [place] 2020-09-02 2020-09-02 Emergency Rose, [facility] 1.2.840.114 [id number] 16:12:00 20:21:00 Patti Gillespie 350.1.13.10 [place] 4.2.7.2.686 [place] [id number] 2020-09-02 2020-09-02 Emergency Rose, 1.2.840.5 [id number] [facility] 16:12:00 20:21:00 Patti 04300.1.1 ity of 3.104.2.7 [place] .3.530452 Medica l .8 [place] 2020-09-02 2020-09-02 Orders Doctor MOO 1.2.840.114 [id number] 00:00:00 00:00:00 Only Unassigned, QUITA 350.1.13.10 [place] [facility] 4.2.7.2.686 [id number] 2020-09-02 2020-09-02 Travel 1.2.840.1 1.2.373.811 [id number] Univers 00:00:00 00:00:00 13239.1.1 350.1.13.10 ity of 3.104.2.7 [place]7.3.698 [place] .3.762590 084.8 Medica l .8 [place] 2020-09-02 2020-09-02 Orders Doctor 1.2.840.6 [id number] Univers 00:00:00 00:00:00 Only Unassigned, 96633.1.1 ity of [place] 3.104.2.7 [place] .3.767599 Medica l .8 [place] 2020-08-25 2020-08-25 Outpatient R [facility] [id number] Univers 09:15:00 09:15:00 [facility] 2020-08-09 2020-08-09 Outpatient R SELF, [facility] [id number] Univers 08:45:00 08:45:00 DERRELL walters [facility] 2020-06-28 2020-06-28 Outpatient R FABIÁN, [facility] [id number] Univers 13:45:00 13:45:00 [facility] 2020-06-21 2020-06-21 Outpatient R SELF, [facility] [id number] Univers 15:15:00 15:15:00 DERRELL walters [facility] 2020-06-07 2020-06-07 Outpatient R SELF, [facility] [id number] Univers 08:45:00 08:45:00 DERRELL walters [facility] 2020-05-25 2020-05-25 Outpatient R MICHELLE, [facility] [id number] Univers 08:30:00 08:30:00 CRISTO [facility] 2020-03-15 2020-03-15 Outpatient R FABIÁN, [facility] [id number] Univers 13:00:00 13:00:00 [facility] 2020-03-08 2020-03-08 Outpatient R SELF, [facility] [id number] Univers 13:00:00 13:00:00 DERRELL walters [facility] 2020-02-16 2020-02-16 Outpatient R SELF, [facility] [id number] Univers 11:00:00 11:00:00 DERRELL ity o [facility] 2020-01-27 2020-01-27 Outpatient R SELF, [facility] [id number] Univers 11:45:00 11:45:00 DERRELL martinez [facility] 2020-01-19 2020-01-19 Outpatient R SELF, [facility] [id number] Univers 08:00:00 08:00:00 DERRELL martinez [facility] 2019-12-22 2019-12-22 Outpatient R SELF, [facility] [id number] Univers 08:45:00 08:45:00 DERRELL martinez [facility] 2019-12-05 2019-12-05 Outpatient R ALEISHA, [facility] [id number] Univers 10:45:00 10:45:00 PRISCA [facility] 2019-10-23 2019-10-23 Outpatient R SANDY, [facility] [id number] Univers 09:15:00 09:15:00 KATH [facility] 2019-10-15 2019-10-15 Outpatient R SHE, [facility] [id number] Univers 11:30:00 11:30:00 ORBERT [facility] 2019-10-01 2019-10-01 Outpatient R SHE, [facility] [id number] Univers 14:30:00 14:30:00 ROBERT [facility] 2019-09-01 2019-09-01 Outpatient R SELF, [facility] [id number] Univers 08:45:00 08:45:00 DERRELL martinez [facility] 2019-08-06 2019-08-06 Outpatient R SHALOM, [facility] [id number] Univers 13:00:00 13:00:00 ANGELA [facility] Results Test Description Test Time Test Comments Results Result Comments Source LITHIUM 2022-07-26 17:27:33 Test Item Value Reference Range Interpretation Comme nts [place] (test code = 1583739758) 0.3 mmol/L 0.6-1.2 L ZAINAB (test code = ZAINAB) Toxic Range: ? Greater than 1.2 mmol/L Lab Interpretation (test code = 78386-3) [facility] 17:27:33 Test Item Value Reference Range Interpretation Comments [place] (test code = 0.3 mmol/L 0.6-1.2 L 0020846999) ZAINAB (test code = ZAINAB) Toxic Range: ? Greater than 1.2 mmol/L Lab Interpretation (test Abnormal code = 50523-4) [facility]2023-06-14 17:27:33 Test Item Value Reference Range Interpretation Comments [place] (test code = 0.3 mmol/L 0.6-1.2 L 8423887141) ZAINAB (test code = ZAINAB) Toxic Range: ? Greater than 1.2 mmol/L Lab Interpretation (test Abnormal code = 76788-1) [facility]2023-06-14 17:27:33 Test Item Value Reference Range Interpretation Comments [place] (test code = 0.3 mmol/L 0.6-1.2 L 8171113155) ZAINAB (test code = ZAINAB) Toxic Range: ? Greater than 1.2 mmol/L Lab Interpretation (test Abnormal code = 89846-6) [facility]2023-06-14 17:27:33 Test Item Value Reference Range Interpretation Comments [place] (test code = 0.3 mmol/L 0.6-1.2 L 3597539021) ZAINAB (test code = ZAINAB) Toxic Range: ? Greater than 1.2 mmol/L Lab Interpretation (test Abnormal code = 38614-0) [facility]2023-06-14 17:27:33 Test Item Value Reference Range Interpretation Comments [place] (test code = 0.3 mmol/L 0.6-1.2 L 0738296048) ZAINAB (test code = ZAINAB) Toxic Range: ? Greater than 1.2 mmol/L Lab Interpretation (test Abnormal code = 61375-4) [facility]2023-06-14 17:27:33 Test Item Value Reference Range Interpretation Comments [place] (test code = 0.3 mmol/L 0.6-1.2 L 3144639346) ZAINAB (test code = ZAINAB) Toxic Range: ? Greater than 1.2 mmol/L Lab Interpretation (test Abnormal code = 61867-5) [facility]2023-06-14 17:27:33 Test Item Value Reference Range Interpretation Comments [place] (test code = 0.3 mmol/L 0.6-1.2 L 2586970815) ZAINAB (test code = ZAINAB) Toxic Range: ? Greater than 1.2 mmol/L Lab Interpretation (test Abnormal code = 64904-8) [facility]2023-06-14 17:27:33 Test Item Value Reference Range Interpretation Comments [place] (test code = 0.3 mmol/L 0.6-1.2 L 3384168754) ZAINAB (test code = ZAINAB) Toxic Range: ? Greater than 1.2 mmol/L Lab Interpretation (test Abnormal code = 13208-8) [facility]2023-01-04 20:05:22 Test Item Value Reference Range Interpretation Comments [place] (test code = 1.1 mmol/L 0.6-1.2 8318257292) ZAINAB (test code = ZAINAB) Toxic Range: ? Greater than 1.2 mmol/L Lab Interpretation (test Normal code = 31714-2) [facility]2023-01-04 20:05:22 Test Item Value Reference Range Interpretation Comments [place] (test code = 1.1 mmol/L 0.6-1.2 8256419589) ZAINAB (test code = ZAINAB) Toxic Range: ? Greater than 1.2 mmol/L Lab Interpretation (test Normal code = 07591-6) [facility]2023-01-04 20:05:22 Test Item Value Reference Range Interpretation Comments [place] (test code = 1.1 mmol/L 0.6-1.2 4965746266) ZAINAB (test code = ZAINAB) Toxic Range: ? Greater than 1.2 mmol/L Lab Interpretation (test Normal code = 00359-3) [facility]2023-01-04 20:05:22 Test Item Value Reference Range Interpretation Comments [place] (test code = 1.1 mmol/L 0.6-1.2 5712797917) ZAINAB (test code = ZAINAB) Toxic Range: ? Greater than 1.2 mmol/L Lab Interpretation (test Normal code = 79906-4) [facility]2023-01-04 20:05:22 Test Item Value Reference Range Interpretation Comments [place] (test code = 1.1 mmol/L 0.6-1.2 5459429837) ZAINAB (test code = ZAINAB) Toxic Range: ? Greater than 1.2 mmol/L Lab Interpretation (test Normal code = 17361-8) [facility]2023-01-04 20:05:22 Test Item Value Reference Range Interpretation Comments [place] (test code = 1.1 mmol/L 0.6-1.2 4880674708) ZAINAB (test code = ZAINAB) Toxic Range: ? Greater than 1.2 mmol/L Lab Interpretation (test Normal code = 80248-7) [facility]2023-01-04 20:05:22 Test Item Value Reference Range Interpretation Comments [place] (test code = 1.1 mmol/L 0.6-1.2 9803057317) ZAINAB (test code = ZAINAB) Toxic Range: ? Greater than 1.2 mmol/L Lab Interpretation (test Normal code = 62994-8) [facility]2023-01-04 20:05:22 Test Item Value Reference Range Interpretation Comments [place] (test code = 1.1 mmol/L 0.6-1.2 7847163893) ZAINAB (test code = ZAINAB) Toxic Range: ? Greater than 1.2 mmol/L Lab Interpretation (test Normal code = 62393-6) [facility]2023-01-04 20:05:22 Test Item Value Reference Range Interpretation Comments [place] (test code = 1.1 mmol/L 0.6-1.2 8404262174) ZAINAB (test code = ZAINAB) Toxic Range: ? Greater than 1.2 mmol/L Lab Interpretation (test Normal code = 43282-5) [facility]2023-01-04 20:05:22 Test Item Value Reference Range Interpretation Comments [place] (test code = 1.1 mmol/L 0.6-1.2 5753684623) ZAINAB (test code = ZAINAB) Toxic Range: ? Greater than 1.2 mmol/L Lab Interpretation (test Normal code = 93041-7) [place] [facility]2018-07-20 07:27:00 Test Item [...] VERY HIGH.........>/ = 190 mg/dL Comments to Air Control/Anti Air Warfare Officer: ADD TO AM LABSLIPID PROFILE (CORONARY RISK)2018-07-20 [...] MG/DL 0-99 code = LDL) Comments to Air Control/Anti Air Warfare Officer: ADD TO AM LABSPROTHROMBIN [id number] 06:24:00 Test Item Value Reference Range Interpretation [...] dial infarction. 2.0 - 3.0 3. Software Packager al prosthesis hear t valves, recurre nt systemic emboli sm. 3.0 - 4.5 Comments to Air Control/Anti Air Warfare Officer: NURSE WILL BRING SPECIMEN TO LABPTT ACTIVATED 2018-07-20 06:24:00 Test Item Value Reference Range Interpretation Comments PTT ACTIVATED (test code = APTT) 29.3 SECONDS 22.0-33.0 N Comments to Air Control/Anti Air Warfare Officer: NURSE WILL BRING SPECIMEN TO LABBASIC METABOLIC [...] 9.6 MG/DL 8.4-10.2 N CA) Comments to Air Control/Anti Air Warfare Officer: NURSE WILL BRING SPECIMEN TO LAB Comments to Air Control/Anti Air Warfare Officer: NURSE WILL BRING SPECIMEN TO [id number] 06:13:00 Test Item Value Reference Range Interpretation Comments MAGNESIUM (test code = MAG) 2.2 MG/DL 1.6-2.3 N Comments to Air Control/Anti Air Warfare Officer: NURSE WILL BRING SPECIMEN TO LAB Comments to Air Control/Anti Air Warfare Officer: NURSE WILL BRING SPECIMEN TO LABCBC W/AUTO [id number] 06:02:00 Test Item Value Reference Range Interpretation [...] Notes Date/Time Note Provider Source 2018-07-20 06:55:00-00:00 5912-3062 [facility] [address] [place] [address] PATIENT NAME: UDAY SCHULER ADMIT DATE: 07/20/18 ACCOUNT NO: [id number] ROOM NO: AGE: 43 REPORT TYPE: CARDIAC CATHETERIZATION REPORT SEX: F ADMITTING PHYSICIAN: ATTENDING PHYSICIAN:Rosa Harper MD PROCEDURE DATE: 07/20/2018 MICA BUILDER: Rosa Harper MD TITLE OF THE PROCEDURE: [...] emoral artery area for local anesthesia. A 6-Amharic sheath was placed in the right common [...] complications. She was transferred back [place] [facility] for observation to be discharged later on today on medical therapy PATIENT NAME: UDAY SCHULER ACCOUNT #: Z [id number] and risk factor modification. Dictated By: Roas Harper MD WT: CATH:ADRIANA/KIAN/RIGOBERTO Conf#: [id number]/DID#: [id number] Authenticated by Rosa Harper MD On 09/2018 08:15:22 AM at 0815 PATIENT NAME: UDAY SCHULER ACCOUNT #: Z [id number] 2018-07-20 06:06:00-00:00 9890-[address]82 [place] [address] PATIENT NAME: UDAY SCHULER ADMIT DATE: 07/20/18 ACCOUNT NO: [id number] ROOM NO: AGE: 43 REPORT TYPE: ELECTROCARDIOGRAM SEX: F ADMITTING PHYSICIAN: ATTENDING PHYSICIAN:Rosa Harper MD Order: [id number] Test Reason : CAD Test Date/Time Stamp: [...] AM Referred By: Rosa Harper Confirmed by:ROSA ACEVEDO at 0921 PATIENT NAME: UDAY SCHULER ACCOUNT #: Z [id number] 2018-07-19 18:55:00-00:00 4808-8713 [place] [address] PATIENT NAME: UDAY SCHULER ADMIT DATE: 07/20/18 ACCOUNT NO: [id number] ROOM NO: AGE: 43 REPORT TYPE: HISTORY AND PHYSICAL SEX: F ADMITTING PHYSICIAN: ATTENDING PHYSICIAN:Rosa Harper MD ADMISSION DATE: 07/20/2018 MICA BUILDER: Rosa Harper MD REASON FOR ADMISSION: Chest [...] The patient does not smoke or us [address] drugs or drinks alcohol. FAMILY HISTORY: [...] PATIENT NAME: UDAY SCHULER ACCOUNT #: Z [id number] HEENT: Head, atraumatic and normocephalic. Eyes and [...] By: Rosa Harper MD WT: HP:TRAVIS/KIAN/RIGOBERTO Conf#: [id number]/DID#: [id number] Authenticated by Rosa Harper MD On 07/13 07:20:46 AM at 0721 PATIENT NAME: UDAY SCHULER ACCOUNT #: Z [id number]
[2022-09-27 20:33] LABS: Potassium 3.8 mEq/L (3.5-5.1)
[2022-09-27 20:35] LABS: Absolute Lymphocytes (CBC) 2.1 K/uL (0.7-4.9); Hematocrit 31.4 % (36.0-45.0); Lymphocytes % 20.9 % (15.3-44.8); MCV 69.5 fL (80-100); Platelets 338 thou/uL (152-406); RBC Red Blood Cell Count 4.52 M/uL (3.86-4.86)
--- NOTE | 2022-09-27 20:51 | ER ---
Nurse's Notes [facility] Name: Shivani Lagunas Age: 47 yrs Sex: Female : 1975 Arrival Date: 09/27/2022 Time: 18:26 Bed 14 Private MD: Diagnosis: Local infection of the skin and subcutaneous tissue, unspecified Presentation: 09/27 19:21 Chief complaint: Painful fingertips and cuticles after getting artificial nails applied hb one month ago. Coronavirus screen: At this time, the client does not indicate any symptoms associated with coronavirus-19. Ebola Screen: No symptoms or risks identified at this time. Initial Sepsis Screen: Does the patient meet any 2 criteria? No. Patient's initial sepsis screen is negative. Does the patient have a suspected source of infection? No. Patient's initial sepsis screen is negative. Risk Assessment: Do you want to hurt yourself or someone else? Patient reports no desire to harm self or others. Onset of symptoms was August 26, 2022. 19:21 Method Of Arrival: Ambulatory hb 19:21 Acuity: ALICIA 4 hb Historical: - Allergies: 19:23 Sulfa (Sulfonamide Antibiotics); hb - PMHx: 19:23 Bipolar disorder; Hypertensive disorder; Schizophrenia; hb - PSHx: 19:23 section; Cholecystectomy; hb - Immunization history:: Adult Immunizations up to date. - Social history:: Smoking status: Patient denies any tobacco usage or history of. Screenin:00 [facility] ED Fall Risk Assessment (Adult) History of falling in the last 3 months, jb4 including since admission No falls in past 3 months (0 pts) Confusion or Disorientation No (0 pts) Score/Fall Risk Level 0 - 2 = Low Risk Oriented to surroundings, Maintained a safe environment. Abuse screen: Denies threats or abuse. Nutritional screening: No deficits noted. Tuberculosis screening: No symptoms or risk factors identified. Assessment: 21:00 General: Appears in no apparent distress. comfortable, Behavior is calm, cooperative, jb4 appropriate for age. Pain: Denies pain. Neuro: Level of Consciousness is awake, alert, obeys commands, Oriented to person, place, time, situation. Cardiovascular: Patient's skin is warm and dry. Respiratory: Airway is patent Respiratory effort is even, unlabored, Respiratory pattern is regular, symmetrical. GI: Abdomen is non-distended, obese, Reports nausea, vomiting. : No signs and/or symptoms were reported regarding the genitourinary system. EENT: No signs and/or symptoms were reported regarding the EENT system. Derm: Skin is intact, Skin is pink, warm \T\ dry. Musculoskeletal: Circulation, motion, and sensation intact. Range of motion: intact in all extremities. Vital Signs: 19:21 BP 150 / 80; Pulse 88; Resp 16; Temp 98.1(O); Pulse Ox 100% on R/A; Weight 94.35 kg; hb Height 5 ft. 6 in. ; Pain 8/10; 21:00 BP 137 / 79; Pulse 63; Resp 16; Pulse Ox 99% on R/A; jb4 19:21 Body Mass Index 33.57 (94.35 kg, 167.64 cm) hb 19:21 Pain Scale: Adult hb ED Course: 18:30 Patient arrived in ED. ts1 18:42 Shantelle Peraza FNP-C [facility] kb 18:42 Jose J Rivera MD is Attending Physician. kb 19:23 Triage completed. hb 19:24 Arm band placed on. hb 20:07 Blood Culture Adult (2) Sent. bc6 20:07 Lactate w/ 2H reflex if indic. Sent. bc6 20:07 Basic Metabolic Panel Sent. bc6 20:07 CBC with Diff Sent. bc6 20:07 Inserted saline lock: 20 gauge in left antecubital area, using aseptic technique. Blood bc6 collected. 20:42 Antony Trejo, RN is Primary Nurse. jb4 21:00 Patient has correct armband on for positive identification. Bed in low position. Call jb4 light in reach. Side rails up X 1. 21:00 No provider procedures requiring assistance completed. jb4 21:16 IV discontinued, intact, bleeding controlled, No redness/swelling at site. Pressure jb4 dressing applied. Administered Medications: 20:50 Drug: NS 0.9% IV 1000 ml Route: IV; Rate: 1000 ml; Site: left antecubital; jb4 21:15 Follow up: Response: No adverse reaction; IV Status: Order to discontinue infusion; IV jb4 Intake: 250ml 20:50 Drug: Ondansetron IVP 4 mg Route: IVP; Site: left antecubital; jb4 21:15 Follow up: Response: No adverse reaction; Marked relief of symptoms jb4 21:15 Drug: Doxycycline PO 100 mg Route: PO; jb4 21:15 Follow up: Response: Medication administered at discharge. jb4 21:15 Drug: Cephalexin PO 500 mg Route: PO; jb4 21:15 Follow up: Response: Medication administered at discharge. jb4 Medication: 21:00 VIS not applicable for this client. jb4 Intake: 21:15 IV: 250ml; Total: 250ml. jb4 Outcome: 20:51 Discharge ordered by . kb 21:16 Discharged to home ambulatory. jb4 21:16 Condition: stable 21:16 Discharge instructions given to patient, Instructed on discharge instructions, follow up and referral plans. medication usage, Demonstrated understanding of instructions, follow-up care, medications, Prescriptions given X 2. 21:16 Patient left the ED. jb4 Signatures: Shantelle Peraza, COMPRESSED YEAST SUPERVISOR-C COMPRESSED YEAST SUPERVISOR-Ckb Jacqueline Pearson RN RN Antony Trejo RN RN jb4 Luly Painter 6 Liliana Hoskins PAS PAS ts1
--- NOTE | 2022-09-27 20:51 | EDPHYS ---
Physician Documentation [facility] Name: Shivani Lagunas Age: 47 yrs Sex: Female : 1975 Arrival Date: 09/27/2022 Time: 18:26 Bed 14 Private MD: JORDON Physician Jose J Rivera HPI: 09/27 22:49 This 47 yrs old Female presents to ER via Ambulatory with complaints of kb Nausea/Vomiting, Hand Pain. 22:49 the patient presents with a swollen area of the Distal fingers on both hands. kb Description: erythematous, swollen. Onset: The symptoms/episode began/occurred 1 month(s) ago. Possible cause(s): Manicure. Associated signs and symptoms: Pertinent positives: erythema, fever, nausea, swelling, vomiting. Modifying factors: the symptoms are alleviated by nothing, the symptoms are aggravated by nothing. Severity of symptoms: At their worst the symptoms were mild, in the emergency department the symptoms are unchanged. The patient has not experienced similar symptoms in the past. The patient has not recently seen a physician. Patient reports she had a manicure 1 month ago where the geoscience technician pushed her cuticles back. States she has had soreness to nail beds and fingertips since then progressing to redness and swelling. States she started running fever with nausea vomiting diarrhea yesterday so her daughter told her to come in to make sure she was not septic.. Historical: - Allergies: 19:23 Sulfa (Sulfonamide Antibiotics); hb - PMHx: 19:23 Bipolar disorder; Hypertensive disorder; Schizophrenia; hb - PSHx: 19:23 section; Cholecystectomy; hb - Immunization history:: Adult Immunizations up to date. - Social history:: Smoking status: Patient denies any tobacco usage or history of. ROS: 21:58 Respiratory: Negative for shortness of breath, cough, wheezing, and pleuritic chest kb pain. 21:58 Constitutional: Positive for fever. 21:58 Abdomen/GI: Positive for nausea, vomiting, and diarrhea, Negative for abdominal pain. 21:58 Skin: Positive for erythema, swelling, of the distal fingers on both hands. 21:58 All other systems are negative. Exam: 22:00 Constitutional: This is a well developed, well nourished patient who is awake, alert, kb and in no acute distress. Head/Face: Normocephalic, atraumatic. ENT: Moist Mucous membranes Cardiovascular: Regular rate and rhythm with a normal S1 and S2. No gallops, murmurs, or rubs. No pulse deficits. Respiratory: Respirations even and unlabored. No increased work of breathing. Talking in full sentences Abdomen/GI: Soft, non-tender. No distention MS/ Extremity: Pulses equal, no cyanosis. Neurovascular intact. Full, normal range of motion. Neuro: Awake and alert, GCS 15, oriented to person, place, time, and situation. Moves all extremities. Normal gait. 22:00 Skin: cellulitis, that is minimal, on the distal fingers on both hands. Vital Signs: 19:21 BP 150 / 80; Pulse 88; Resp 16; Temp 98.1(O); Pulse Ox 100% on R/A; Weight 94.35 kg; hb Height 5 ft. 6 in. ; Pain 8/10; 21:00 BP 137 / 79; Pulse 63; Resp 16; Pulse Ox 99% on R/A; jb4 19:21 Body Mass Index 33.57 (94.35 kg, 167.64 cm) hb 19:21 Pain Scale: Adult hb MDM: 18:42 Patient medically screened. kb 21:59 Differential diagnosis: viral gastroenteritis, cellulitis, abscess. Data reviewed: vital signs, nurses notes. Counseling: I had a detailed discussion with the patient and/or guardian regarding the historical points, exam findings, and any diagnostic results supporting the discharge/admit diagnosis, lab results, the need for outpatient follow up, a family practitioner, to return to the emergency department if symptoms worsen or persist or if there are any questions or concerns that arise at home. 09/27 18:50 Order name: CBC with Diff 09/27 18:50 Order name: Basic Metabolic Panel; Complete Time: 20:35 kb 09/27 18:50 Order name: Lactate w/ 2H reflex if indic.; Complete Time: 20:37 kb 09/27 18:50 Order name: Blood Culture Adult (2) 09/27 18:50 Order name: IV Start; Complete Time: 20:07 kb Administered Medications: 20:50 Drug: NS 0.9% IV 1000 ml Route: IV; Rate: 1000 ml; Site: left antecubital; jb4 21:15 Follow up: Response: No adverse reaction; IV Status: Order to discontinue infusion; IV jb4 Intake: 250ml 20:50 Drug: Ondansetron IVP 4 mg Route: IVP; Site: left antecubital; jb4 21:15 Follow up: Response: No adverse reaction; Marked relief of symptoms jb4 21:15 Drug: Doxycycline PO 100 mg Route: PO; jb4 21:15 Follow up: Response: Medication administered at discharge. jb4 21:15 Drug: Cephalexin PO 500 mg Route: PO; jb4 21:15 Follow up: Response: Medication administered at discharge. jb4 Disposition: 09/28 10:02 Co-signature as Attending Physician, Jose J Rivera MD I reviewed the patient's care rt provided by the Advanced Practice Provider and agree with the diagnosis and treatment plan. Disposition Summary: 09/27/22 20:51 Discharge Ordered Location: [place] kb Condition: Stable kb Diagnosis - Local infection of the skin and subcutaneous tissue, unspecified kb Followup: kb - With: Emergency Department - When: As needed - Reason: Worsening of condition Followup: kb - With: Private Physician - When: 2 - 3 days - Reason: Recheck today's complaints, Continuance of care, Re-evaluation by your physician Discharge Instructions: - Discharge Summary Sheet kb - Wound Infection, [id number] kb Forms: - Medication Reconciliation Form kb - Thank You Letter kb - Antibiotic Education kb - Prescription Opioid Use kb - Patient Portal Instructions kb - Leadership Thank You Letter kb Prescriptions: - Cephalexin 500 mg Oral Capsule - take 1 capsule by ORAL route every 8 hours for 10 days; 30 capsule; Refills: 0, kb Product Selection Permitted - Doxycycline Hyclate 100 mg Oral Tablet - take 1 tablet by ORAL route every 12 hours; 20 tablet; Refills: 0, Product kb Selection Permitted Signatures: Dispatcher [employer] Shantelle Dominguez, Jacqueline Velez RN RN hb Bryson, James, RN RN jb4 Jose J Rivera MD MD rt
[2022-09-27] MEDS ORDERED: NA CHLORIDE 0.9% 1,000 ML ONE (20:54)
[2022-09-27] MEDS ORDERED: ONDANSETRON 4 MG/2 ML VIAL ONE (20:54)
[2022-09-27] MEDS ORDERED: DOXYCYCLINE 100 MG CAP PO ONE (21:19)
[2022-09-27] MEDS ORDERED: CEPHALEXIN 250 MG CAP ONE (21:19)
[2022-09-27 21:58] LABS: Anisocytosis 1+; Blood Morphology Comment NOTED (NOT SEEN); Platelet Estimate ADEQ; Polychromasia 1+; White Blood Cell Scan OK (OK)
[2022-09-27 22:31] VITALS: TEMP 98.1
[2022-09-27 22:37] VITALS: BP 137/79; O2SAT 99
== END 2022-09-27 21:16 | disposition home or self-care (01) ==
LOC: ER 18:26
DX: L08.9 Local infection of the skin and subcutaneous tissue, unspecified (principal); Z88.2 Allergy status to sulfonamides
CPT/HCPCS: 87040 ×2; 85025; 80048; 36415; 83605; J2405; J7030

== ENCOUNTER 2022-09-29 23:06 | Emergency (ER) | payer OTHER ==
--- OUTSIDE RECORDS SUMMARY | 2022-09-29 23:40 | XMS REPORT | Continuity of Care Document ---
:[address] [facility] t Address [address] [place] [address] [address] [place] [address] Care Team Providers Name Role Phone Pcp, Patient Does Not Have A Primary Care Physician +1-000-0 00-0000 UNA HESTER Attending Clinician Unavailable UNA HESTER Attending Clinician Unavailable Pathology Attending Clinician Unavailable Pcp-Lab Attending Clinician Unavailable Doctor Unassigned, [place] Attending Clinician Unavailable DERRELL DIAS Attending Clinician [...] Policy Number Effective Date Expiration Date [facility] MEDICAID SSI PENDING 2021 PENDING 00:00:00 Problems Condition Condition Condition Status Onset Resolution Last Treating Co mments Source Name Details Category Date Date Treatment Clinician Date No known No known Disease Unive rs active active ity of problems problems [facility] Allergies, Adverse Reactions, Alerts Allergy Allergy Status [...] Stop Date Quantity Comments Source [facility] Sexual orientation Univer [facility] History of Social 2022-07-26 2022-07-26 Univers ity of function 00:00:00 00:00:00 [facility] Exposure to 2022-02-05 2022-02-15 Not sure [facility] SARS-CoV-2 (event) 00:00:00 08:57:00 [facility] Tobacco use and 2021-08-24 2021-08-24 Smokeless Universit y of exposure 00:00:00 00:00:00 tobacco non-user [facility] Sex Assigned At [birth year] Universit y of 00:00:00 00:00:00 [facility] Smoking Status Start Date Stop Date Source Never smoked tobacco [facility] Medications Ordered Filled Start Stop Current Ordering Indication Dosage Frequency Signature Comments Components Source Medication Medication Date Date Medication? Clinician (SIG) Name Name clonazePAM Yes [id number] Take 1 U nivers 1 mg tablet 8-17 tablet by ity of 00:00: mouth [place] 00 twice Medical daily as Branch needed for anxiety. DULoxetine 3-0 Yes [id number] 60mg Take 1 U nivers 60 mg 8-15 capsule by ity of capsule 00:00: mouth in [place] [address] the [facility] morning Branch and 1 capsule in the evening. DULoxetine 2023-0 Yes [id number] 60mg Take 1 U nivers 60 mg 8-15 capsule by ity of capsule 00:00: mouth in [place] [address] the [facility] morning [place] and 1 capsule in the evening. lithium 3-0 Yes [id number] 900mg Take 2 Uni vers carbonate 8-02 tablets by ity of CR 450 mg 00:00: [place] [facility] bus[facility]-0 Yes [id number] 10mg Take 1 Un cristhian 10 mg 8-02 tablet by ity of tablet 00:00: mouth in [place] [address] the [facility] morning [place] and 1 tablet in the evening. lamoTRIgine 2022-0 Yes [id number] 100mg Take 1 Univers 100 mg 8-02 tablet by ity of tablet 00:00: mouth in [place] [address] the [facility] and 1 tablet in the evening. lithium 3-0 Yes [id number] 900mg Take 2 Uni vers carbonate 8-02 tablets by ity of CR 450 mg 00:00: [place] [facility]. [facility] bus[facility] 3-0 Yes [id number] 10mg Take 1 Un cristhian 10 mg 8-02 tablet by ity of tablet 00:00: mouth in [place] [address] the [facility] morning [place] and 1 tablet in the evening. lamoTRIgine 3-0 Yes [id number] 100mg Take 1 Univers 100 mg 8-02 tablet by ity of tablet 00:00: mouth in [place] [address] the [facility] morning [place] and 1 tablet in the evening. lithium 3-0 Yes [id number] 900mg Take 2 Uni vers carbonate 8-02 tablets by ity of CR 450 mg 00:00: [place] [facility]. [facility] bus[facility] 3-0 Yes [id number] 10mg Take 1 Un cristhian 10 mg 8-02 tablet by ity of tablet 00:00: mouth in [place] [address] the [facility] morning [place] and 1 tablet in the evening. lamoTRIgine 2022-0 Yes [id number] 100mg Take 1 Univers 100 mg 8-02 tablet by ity of tablet 00:00: mouth in [place] 00 the Medical morning Branch and 1 tablet in the evening. clonazePAM 3-0 Yes [id number] Take 1 U nivers 1 mg tablet 7-19 tablet by ity of 00:00: mouth [place] 00 twice Medical daily as Branch needed for anxiety. clonazePAM 3-0 Yes [id number] Take 1 U nivers 1 mg tablet 7-19 tablet by ity of 00:00: mouth [place] 00 twice Medical daily as Branch needed for anxiety. clonazePAM 3-0 Yes [id number] Take 1 U nivers 1 mg tablet 7-19 tablet by ity of 00:00: mouth [place] 00 twice Medical daily as Branch needed for anxiety. clonazePAM 3-0 Yes [id number] Take 1 U nivers 1 mg tablet 7-19 tablet by ity of 00:00: mouth [place] 00 twice Medical daily as Branch needed for anxiety. clonazePAM 3-0 Yes [id number] Take 1 U nivers 1 mg tablet 7-19 tablet by ity of 00:00: mouth [place] 00 twice Medical daily as Branch needed for anxiety. clonazePAM 3-0 Yes [id number] Take 1 U nivers 1 mg tablet 7-19 tablet by ity of 00:00: mouth [place] 00 twice Medical daily as Branch needed for anxiety. clonazePAM 3-0 2023- No [id number] Take 1 Univers 1 mg tablet 7-19 -14 tablet by it y of 00:00: 00:00 mouth [place] 00 :00 twice Medical daily as Branch needed for anxiety. FUROSEMIDE 2023-0 2023- No 40mg Take 40 mg Univers ORAL 6-26 07-14 by mouth ity of 09:33: 00:00 daily. [place] 26 :00 Medical Branch FUROSEMIDE 2023-0 2023- No 40mg Take 40 mg Univers ORAL 6-26 07-14 by mouth ity of 09:33: 00:00 daily. [place] 26 :00 Medical Branch FUROSEMIDE 2023-0 2023- No 40mg Take 40 mg Univers ORAL 6-26 07-14 by mouth ity of 09:33: 00:00 daily. [place] 26 :00 Medical Branch FUROSEMIDE 2023-0 2023- No 40mg Take 40 mg Univers ORAL 6-26 07-14 by mouth ity of 09:33: 00:00 daily. [place] 26 :00 Medical Branch DULoxetine 2023-0 Yes [id number] 60mg Take 1 U nivers 60 mg 6-14 capsule by ity of capsule 00:00: mouth in [place] 00 the Medical morning Branch and 1 capsule in the evening. lamoTRIgine 3-0 Yes [id number] 100mg Take 1 Univers 100 mg 6-14 tablet by ity of tablet 00:00: mouth in [place] 00 the Medical morning Branch and 1 tablet in the evening. lithium 3-0 Yes [id number] 900mg Take 2 Uni vers carbonate 6-14 tablets by ity of CR 450 mg 00:00: [place] tablet 00 bedtime. Medica l Branch traZODone 3-0 Yes [id number] 50mg Take 1 U nivers 50 mg 6-14 tablet by ity of tablet 00:00: mouth at [place] 00 bedtime. Medical [place] cut Branch tablet in half. busPIRone 2022-0 Yes [id number] 10mg Take 1 Un cristhian 10 mg 6-14 tablet by ity of tablet 00:00: mouth in [place] [address] the [facility] morning Branch and 1 tablet in the evening. DULoxetine 3-0 Yes [id number] 60mg Take 1 U nivers 60 mg 6-14 capsule by ity of capsule 00:00: mouth in [place] [address] the Medical morning Branch and 1 capsule in the evening. lamoTRIgine 3-0 Yes [id number] 100mg Take 1 Univers 100 mg 6-14 tablet by ity of tablet 00:00: mouth in [place] 00 the [facility] morning Branch and 1 tablet in the evening. lithium 3-0 Yes [id number] 900mg Take 2 Uni vers carbonate 6-14 tablets by ity of CR 450 mg 00:00: [place] tablet 00 bedtime. Medica l Branch traZODone 3-0 Yes [id number] 50mg Take 1 U nivers 50 mg 6-14 tablet by ity of tablet 00:00: mouth at [place] [address] bedtime. Medical May cut Branch tablet in half. busPIRone 3-0 Yes [id number] 10mg Take 1 Un cristhian 10 mg 6-14 tablet by ity of tablet 00:00: mouth in [place] [address] the [facility] morning Branch and 1 tablet in the evening. DULoxetine 2023-0 Yes [id number] 60mg Take 1 U nivers 60 mg 6-14 capsule by ity of capsule 00:00: mouth in [place] 00 the Medical morning Branch and 1 capsule in the evening. lamoTRIgine 2023-0 Yes [id number] 100mg Take 1 Univers 100 mg 6-14 tablet by ity of tablet 00:00: mouth in [place] 00 the Medical morning Branch and 1 tablet in the evening. lithium 3-0 Yes [id number] 900mg Take 2 Uni vers carbonate 6-14 tablets by ity of CR 450 mg 00:00: [place] tablet 00 bedtime. Medica l Branch traZODone 3-0 Yes [id number] 50mg Take 1 U nivers 50 mg 6-14 tablet by ity of tablet 00:00: mouth at [place] [address] bedtime. Medical June cut Branch tablet in half. busPIRone 3-0 Yes [id number] 10mg Take 1 Un cristhian 10 mg 6-14 tablet by ity of tablet 00:00: mouth in [place] 00 the Medical morning Branch and 1 tablet in the evening. DULoxetine 3-0 Yes [id number] 60mg Take 1 U nivers 60 mg 6-14 capsule by ity of capsule 00:00: mouth in [place] 00 the Medical morning Branch and 1 capsule in the evening. lamoTRIgine 3-0 Yes [id number] 100mg Take 1 Univers 100 mg 6-14 tablet by ity of tablet 00:00: mouth in [place] 00 the Medical morning Branch and 1 tablet in the evening. lithium 3-0 Yes [id number] 900mg Take 2 Uni vers carbonate 6-14 tablets by ity of CR 450 mg 00:00: [place] tablet 00 bedtime. Medica l Branch traZODone 3-0 Yes [id number] 50mg Take 1 U nivers 50 mg 6-14 tablet by ity of tablet 00:00: mouth at [place] 00 bedtime. June cut Branch tablet in half. busPIRone 2023-0 Yes [id number] 10mg Take 1 Un cristhian 10 mg 6-14 tablet by ity of tablet 00:00: mouth in [place] [address] the Medical morning Branch and 1 tablet in the evening. DULoxetine 2023-0 Yes [id number] 60mg Take 1 U nivers 60 mg 6-14 capsule by ity of capsule 00:00: mouth in [place] 00 the Medical morning Branch and 1 capsule in the evening. lamoTRIgine 2023-0 Yes [id number] 100mg Take 1 Univers 100 mg 6-14 tablet by ity of tablet 00:00: mouth in [place] 00 the Medical morning Branch and 1 tablet in the evening. lithium 2023-0 Yes [id number] 900mg Take 2 Uni vers carbonate 6-14 tablets by ity of CR 450 mg 00:00: [place] tablet 00 bedtime. Medica l Branch traZODone 2023-0 Yes [id number] 50mg Take 1 U nivers 50 mg 6-14 tablet by ity of tablet 00:00: mouth at [place] [address] bedtime. June cut Branch tablet in half. busPIRone 3-0 Yes [id number] 10mg Take 1 Un cristhian 10 mg 6-14 tablet by ity of tablet 00:00: mouth in [place] [address] the Medical morning Branch and 1 tablet in the evening. DULoxetine 3-0 Yes [id number] 60mg Take 1 U nivers 60 mg 6-14 capsule by ity of capsule 00:00: mouth in [place] [address] the [facility] morning Branch and 1 capsule in the evening. lamoTRIgine 3-0 Yes [id number] 100mg Take 1 Univers 100 mg 6-14 tablet by ity of tablet 00:00: mouth in [place] [address] the [facility] morning Branch and 1 tablet in the evening. lithium 3-0 Yes [id number] 900mg Take 2 Uni vers carbonate 6-14 tablets by ity of CR 450 mg 00:00: [place] tablet 00 bedtime. Medica l Branch traZODone 3-0 Yes [id number] 50mg Take 1 U nivers 50 mg 6-14 tablet by ity of tablet 00:00: mouth at [place] 00 bedtime. June cut Branch tablet in half. busPIRone 2023-0 Yes [id number] 10mg Take 1 Un cristhian 10 mg 6-14 tablet by ity of tablet 00:00: mouth in [place] [address] the [facility] morning Branch and 1 tablet in the evening. DULoxetine 2023-0 Yes [id number] 60mg Take 1 U nivers 60 mg 6-14 capsule by ity of capsule 00:00: mouth in [place] [address] the [facility] morning Branch and 1 capsule in the evening. lamoTRIgine 2023-0 Yes [id number] 100mg Take 1 Univers 100 mg 6-14 tablet by ity of tablet 00:00: mouth in [place] 00 the Medical morning Branch and 1 tablet in the evening. lithium 3-0 Yes [id number] 900mg Take 2 Uni vers carbonate 6-14 tablets by ity of CR 450 mg 00:00: [place] tablet 00 bedtime. Medica l Branch traZODone 3-0 Yes [id number] 50mg Take 1 U nivers 50 mg 6-14 tablet by ity of tablet 00:00: mouth at [place] 00 bedtime. June cut Branch tablet in half. busPIRone 3-0 Yes [id number] 10mg Take 1 Un cristhian 10 mg 6-14 tablet by ity of tablet 00:00: mouth in [place] 00 the Medical morning Branch and 1 tablet in the evening. DULoxetine 3-0 Yes [id number] 60mg Take 1 U nivers 60 mg 6-14 capsule by ity of capsule 00:00: mouth in [place] 00 the Medical morning Branch and 1 capsule in the evening. lamoTRIgine 3-0 Yes [id number] 100mg Take 1 Univers 100 mg 6-14 tablet by ity of tablet 00:00: mouth in [place] 00 the Medical morning Branch and 1 tablet in the evening. lithium 3-0 Yes [id number] 900mg Take 2 Uni vers carbonate 6-14 tablets by ity of CR 450 mg 00:00: [place] tablet 00 bedtime. Medica l Branch traZODone 3-0 Yes [id number] 50mg Take 1 U nivers 50 mg 6-14 tablet by ity of tablet 00:00: mouth at [place] 00 bedtime. June cut Branch tablet in half. busPIRone 3-0 Yes [id number] 10mg Take 1 Un cristhian 10 mg 6-14 tablet by ity of tablet 00:00: mouth in [place] 00 the Medical morning Branch and 1 tablet in the evening. DULoxetine 3-0 Yes [id number] 60mg Take 1 U nivers 60 mg 6-14 capsule by ity of capsule 00:00: mouth in [place] [address] the Medical morning Branch and 1 capsule in the evening. lamoTRIgine 2023-0 Yes [id number] 100mg Take 1 Univers 100 mg 6-14 tablet by ity of tablet 00:00: mouth in [place] 00 the Medical morning Branch and 1 tablet in the evening. lithium 2022-0 Yes [id number] 900mg Take 2 Uni vers carbonate 6-14 tablets by ity of CR 450 mg 00:00: mouth at [facility] s SR tablet 00 bedtime. Medica l Branch traZODone 2022-0 Yes [id number] 50mg Take 1 U nivers 50 mg 6-14 tablet by ity of tablet 00:00: mouth at [place] 00 bedtime. Medical May cut Branch tablet in half. busPIRone 2022-0 Yes [id number] 10mg Take 1 Un cristhian 10 mg 6-14 tablet by ity of tablet 00:00: mouth in [place] 00 the Medical morning Branch and 1 tablet in the evening. DULoxetine 2022-0 Yes [id number] 60mg Take 1 U nivers 60 mg 6-14 capsule by ity of capsule 00:00: mouth in [place] 00 the Medical morning Branch and 1 capsule in the evening. traZODone 2022-0 Yes [id number] 50mg Take 1 U nivers 50 mg 6-14 tablet by ity of tablet 00:00: mouth at [place] 00 bedtime. Medical May cut Branch tablet in half. traZODone 2022-0 Yes [id number] 50mg Take 1 U nivers 50 mg 6-14 tablet by ity of tablet 00:00: mouth at [place] 00 bedtime. Medical May cut Branch tablet in half. traZODone 2022-0 Yes [id number] 50mg Take 1 U nivers 50 mg 6-14 tablet by ity of tablet 00:00: mouth at [place] 00 bedtime. Medical May cut Branch tablet in half. DULoxetine 2022-0 2022- No [id number] 60mg Take 1 Univers 60 mg 6-14 08-14 capsule by ity of capsule 00:00: 00:00 mouth in [place] 00 :00 the Medical morning Branch and 1 capsule in the evening. DULoxetine 2022-0 2022- No [id number] 60mg Take 1 Univers 60 mg 6-14 08-14 capsule by ity of capsule 00:00: 00:00 mouth in [place] 00 :00 the Medical morning Branch and 1 capsule in the evening. lamoTRIgine 2022-0 2022- No [id number] 100mg Take 1 Univers 100 mg 6-14 08-02 tablet by ity of tablet 00:00: 00:00 mouth in [place] 00 :00 the Medical morning Branch and 1 tablet in the evening. lithium 2022-0 2022- No [id number] 900mg Take 2 Un cristhian carbonate 6-14 08-02 tablets by ity of CR 450 mg 00:00: 00:00 mouth [place] tablet 00 :00 bedtime. Medica l Branch busPIRone 2022-0 2022- No [id number] 10mg Take 1 U nivers 10 mg 6-14 08-02 tablet by ity of tablet 00:00: 00:00 mouth in [place] 00 :00 the Medical morning Branch and 1 tablet in the evening. lamoTRIgine 2022-0 2022- No [id number] 100mg Take 1 Univers 100 mg 6-14 08-02 tablet by ity of tablet 00:00: 00:00 mouth in [place] 00 :00 the Medical morning Branch and 1 tablet in the evening. lithium 2022-0 2022- No [id number] 900mg Take 2 Un cristhian carbonate 6-14 08-02 tablets by ity of CR 450 mg 00:00: 00:00 mouth at [place] tablet 00 :00 bedtime. Medica l Branch busPIRone 2022-0 2022- No [id number] 10mg Take 1 U nivers 10 mg 6-14 08-02 tablet by ity of tablet 00:00: 00:00 mouth in [place] 00 :00 the Medical morning Branch and 1 tablet in the evening. lamoTRIgine 2022-0 2022- No [id number] 100mg Take 1 Univers 100 mg 6-14 08-02 tablet by ity of tablet 00:00: 00:00 mouth in [place] 00 :00 the Medical morning Branch and 1 tablet in the evening. lithium 2022-0 2022- No [id number] 900mg Take 2 Un cristhian carbonate 6-14 08-02 tablets by ity of CR 450 mg 00:00: 00:00 mouth at [place] tablet 00 :00 bedtime. Medica l Branch busPIRone 2022-0 2022- No [id number] 10mg Take 1 U nivers 10 mg 6-14 08-02 tablet by ity of tablet 00:00: 00:00 mouth in [place] 00 :00 the Medical morning Branch and 1 tablet in the evening. lamoTRIgine 2023-0 Yes [id number] 100mg Take 1 Univers 100 mg 6-07 tablet by ity of tablet 00:00: mouth in [place] 00 the Medical morning Branch and 1 tablet in the evening. lamoTRIgine 2023-0 Yes [id number] 100mg Take 1 Univers 100 mg 6-07 tablet by ity of tablet 00:00: mouth in [place] 00 the Medical morning Branch and 1 tablet in the evening. lamoTRIgine 2023-0 2023- No [id number] 100mg Take 1 Univers 100 mg 6-07 06-14 tablet by ity of tablet 00:00: 00:00 mouth in [place] 00 :00 the Medical morning Branch and 1 tablet in the evening. lamoTRIgine 2023-0 2023- No [id number] 100mg Take 1 Univers 100 mg 6-07 06-14 tablet by ity of tablet 00:00: 00:00 mouth in [place] 00 :00 the Medical morning Branch and 1 tablet in the evening. lamoTRIgine 2023-0 2023- No [id number] 100mg Take 1 Univers 100 mg 6-07 06-14 tablet by ity of tablet 00:00: 00:00 mouth in [place] 00 :00 the Medical morning Branch and 1 tablet in the evening. lamoTRIgine 2023-0 2023- No [id number] 100mg Take 1 Univers 100 mg 6- 06-14 tablet by ity of tablet 00:00: 00:00 mouth in [place] 00 :00 the Medical morning Branch and 1 tablet in the evening. clonazePAM 2023-0 Yes [id number] Take 1 U nivers 1 mg tablet 5-24 tablet by ity of 00:00: mouth [place] 00 twice Medical daily as Branch needed for anxiety. clonazePAM 2023-0 Yes [id number] Take 1 U nivers 1 mg tablet 5-24 tablet by ity of 00:00: mouth [place] 00 twice Medical daily as Branch needed for anxiety. clonazePAM 2023-0 Yes [id number] Take 1 U nivers 1 mg tablet 5-24 tablet by ity of 00:00: mouth [place] 00 twice Medical daily as Branch needed for anxiety. clonazePAM 2023-0 Yes [id number] Take 1 U nivers 1 mg tablet 5-24 tablet by ity of 00:00: mouth [place] 00 twice Medical daily as Branch needed for anxiety. clonazePAM 2023-0 Yes [id number] Take 1 U nivers 1 mg tablet 5-24 tablet by ity of 00:00: mouth [place] 00 twice Medical daily as Branch needed for anxiety. clonazePAM 2023-0 Yes [id number] Take 1 U nivers 1 mg tablet 5-24 tablet by ity of 00:00: mouth [place] 00 twice Medical daily as Branch needed for anxiety. clonazePAM 2023-0 Yes [id number] Take 1 U nivers 1 mg tablet 5-24 tablet by ity of 00:00: mouth [place] 00 twice Medical daily as Branch needed for anxiety. clonazePAM 2023-0 Yes [id number] Take 1 U nivers 1 mg tablet 5-24 tablet by ity of 00:00: mouth [place] 00 twice Medical daily as Branch needed for anxiety. clonazePAM 3-0 2022- No [id number] Take 1 Univers 1 mg tablet 5-04 09-18 tablet by it y of 00:00: 00:00 mouth [place] 00 :00 twice Medical daily as Branch needed for anxiety. clonazePAM 3-0 2022- No [id number] Take 1 Univers 1 mg tablet -04 09-18 tablet by it y of 00:00: 00:00 mouth [place] 00 :00 twice Medical daily as Branch needed for anxiety. clonazePAM 3-0 2022- No [id number] Take 1 Univers 1 mg tablet -04 09-18 tablet by it y of 00:00: 00:00 mouth [place] 00 :00 twice Medical daily as Branch needed for anxiety. clonazePAM 3-0 2022- No [id number] Take 1 Univers 1 mg tablet -04 09-18 tablet by it y of 00:00: 00:00 mouth [place] 00 :00 twice Medical daily as Branch needed for anxiety. clonazePAM 3-0 2022- No [id number] Take 1 Univers 1 mg tablet 5-04 09-18 tablet by it y of 00:00: 00:00 mouth [place] 00 :00 twice Medical daily as Branch needed for anxiety. clonazePAM 2023-0 2022- No [id number] Take 1 Univers 1 mg tablet 5-04 09-18 tablet by it y of 00:00: 00:00 mouth [place] 00 :00 twice Medical daily as Branch needed for anxiety. clonazePAM 2023-0 2022- No [id number] Take 1 Univers 1 mg tablet 5-04 09-18 tablet by it y of 00:00: 00:00 mouth [place] 00 :00 twice Medical daily as Branch needed for anxiety. DULoxetine 2022-0 Yes [id number] 60mg Take 1 U nivers 60 mg 5-09 capsule by ity of capsule 00:00: mouth in [place] 00 the Medical morning Branch and 1 capsule in the evening. lithium 2022-0 Yes [id number] 900mg Take 2 Uni vers carbonate 5-09 tablets by ity of CR 450 mg 00:00: [place] SR tablet 00 bedtime. Medica l Branch DULoxetine 2022-0 Yes [id number] 60mg Take 1 U nivers 60 mg 5-09 capsule by ity of capsule 00:00: mouth in [place] 00 the Medical morning Branch and 1 capsule in the evening. lithium 2022-0 Yes [id number] 900mg Take 2 Uni vers carbonate 5-09 tablets by ity of CR 450 mg 00:00: mouth [place] SR tablet 00 bedtime. Medica l Branch DULoxetine 2022-0 Yes [id number] 60mg Take 1 U nivers 60 mg 5-09 capsule by ity of capsule 00:00: mouth in [place] [address] the Medical morning Branch and 1 capsule in the evening. lithium 2022-0 Yes [id number] 900mg Take 2 Uni vers carbonate 5-09 tablets by ity of CR 450 mg 00:00: mouth [place] tablet 00 bedtime. Medica l Branch DULoxetine 2022-0 Yes [id number] 60mg Take 1 U nivers 60 mg 5-09 capsule by ity of capsule 00:00: mouth in [place] [address] the Medical morning Branch and 1 capsule in the evening. lithium 2022-0 Yes [id number] 900mg Take 2 Uni vers carbonate 5-09 tablets by ity of CR 450 mg 00:00: mouth [place] tablet 00 bedtime. Medica l Branch DULoxetine 2022-0 Yes [id number] 60mg Take 1 U nivers 60 mg 5-09 capsule by ity of capsule 00:00: mouth in [place] [address] the Medical morning Branch and 1 capsule in the evening. lithium 2022-0 Yes [id number] 900mg Take 2 Uni vers carbonate 5-09 tablets by ity of CR 450 mg 00:00: mouth [place] tablet 00 bedtime. Medica l Branch DULoxetine 2022-0 2023- No [id number] 60mg Take 1 Univers 60 mg 06-20-14 capsule by ity of capsule 00:00: 00:00 mouth in [place] 00 :00 the Medical morning Branch and 1 capsule in the evening. lithium 2022- No [id number] 900mg Take 2 Un cristhian carbonate 06-20-14 tablets by ity of CR 450 mg 00:00: 00:00 mouth at [place] tablet 00 :00 bedtime. Medica l Branch DULoxetine 2022- No [id number] 60mg Take 1 Univers 60 mg 06-20- capsule by ity of capsule 00:00: 00:00 mouth in [place] 00 :00 the Medical morning Branch and 1 capsule in the evening. lithium 2022- No [id number] 900mg Take 2 Un cristhian carbonate 06-20-14 tablets by ity of CR 450 mg 00:00: 00:00 mouth at [place] tablet 00 :00 bedtime. Medica l [place] DULoxetine 2022- No [id number] 60mg Take 1 Univers 60 mg 06-20 capsule by ity of capsule 00:00: 00:00 mouth in [place] 00 :00 the Medical morning Branch and 1 capsule in the evening. lithium 2022- No [id number] 900mg Take 2 Un cristhian carbonate 06-2014 tablets by ity of CR 450 mg 00:00: 00:00 mouth at [place] tablet 00 :00 bedtime. Medica l Branch DULoxetine 2022- No [id number] 60mg Take 1 Univers 60 mg 06-20 capsule by ity of capsule 00:00: 00:00 mouth in [place] 00 :00 the Medical morning Branch and 1 capsule in the evening. lithium 2022- No [id number] 900mg Take 2 Un cristhian carbonate 06-20-14 tablets by ity of CR 450 mg 00:00: 00:00 mouth at [place] tablet 00 :00 bedtime. Medica l Branch DULoxetine 2022-0 Yes [id number] 60mg Take 1 U nivers 60 mg 3-09 capsule by ity of capsule 00:00: mouth in [place] 00 the Medical morning Branch and 1 capsule in the evening. clonazePAM 2022-0 Yes [id number] Take 1 U nivers 1 mg tablet 3-09 tablet by ity of 00:00: mouth [place] 00 twice Medical daily as Branch needed for anxiety. lamoTRIgine 2023-0 Yes [id number] 100mg Take 1 Univers 100 mg 3-09 tablet by ity of tablet 00:00: mouth in [place] 00 the Medical morning Branch and 1 tablet in the evening. traZODone 3-0 Yes [id number] 50mg Take 1 U nivers 50 mg 3-09 tablet by ity of tablet 00:00: mouth at [place] 00 bedtime. Medical May cut Branch tablet in half. lithium 3-0 Yes [id number] 900mg Take 2 Uni vers carbonate 3-09 tablets by ity of CR 450 mg 00:00: [place] tablet 00 bedtime. Medica l Branch DULoxetine 3-0 Yes [id number] 60mg Take 1 U nivers 60 mg 3-09 capsule by ity of capsule 00:00: mouth in [place] 00 the Medical morning Branch and 1 capsule in the evening. clonazePAM 3-0 Yes [id number] Take 1 U nivers 1 mg tablet 3-09 tablet by ity of 00:00: mouth [place] 00 twice Medical daily as Branch needed for anxiety. lamoTRIgine 3-0 Yes [id number] 100mg Take 1 Univers 100 mg 3-09 tablet by ity of tablet 00:00: mouth in [place] 00 the Medical morning Branch and 1 tablet in the evening. traZODone 3-0 Yes [id number] 50mg Take 1 [facility] n[facility] 50 mg 3-09 tablet by [facility] tablet 00:00: mouth at [place] 00 bedtime. Medical May cut Branch tablet in half. lithium 3-0 Yes [id number] 900mg Take 2 [facility] vers carbonate 3-09 tablets by [facility] of CR 450 mg 00:00: [place] SR tablet 00 bedtime. Medica l Branch clonazePAM 3-0 Yes [id number] Take 1 [facility] nivers 1 mg tablet 3-09 tablet by ity of 00:00: mouth [place] 00 twice Medical daily as Branch needed for anxiety. lamoTRIgine 3-0 Yes [id number] 100mg Take 1 [facility] 100 mg 3-09 tablet by [facility] of tablet 00:00: mouth in [place] 00 the Medical morning Branch and 1 tablet in the evening. traZODone 2023-0 Yes [id number] 50mg Take 1 [facility] n[facility] 50 mg 3-09 tablet by [facility] of tablet 00:00: mouth at [place] 00 bedtime. Medical May cut Branch tablet in half. clonazePAM 2022-0 Yes [id number] Take 1 [facility] n[facility] 1 mg tablet 3-09 tablet by ity of 00:00: mouth [place] 00 twice Medical daily as Branch needed for anxiety. lamoTRIgine 2022-0 Yes [id number] 100mg Take 1 [facility] 100 mg 3-09 tablet by [facility] of tablet 00:00: mouth in [place] 00 the Medical morning Branch and 1 tablet in the evening. traZODone 2022-0 Yes [id number] 50mg Take 1 [facility] 50 mg 3-09 tablet by [facility] of tablet 00:00: mouth at [place] 00 bedtime. Medical May cut Branch tablet in half. lamoTRIgine 2022-0 Yes [id number] 100mg Take 1 [facility] 100 mg 3-09 tablet by [facility] of tablet 00:00: mouth in [place] 00 the Medical morning Branch and 1 tablet in the evening. traZODone 2022-0 Yes [id number] 50mg Take 1 [facility] n[facility] 50 mg 3-09 tablet by [facility] of tablet 00:00: mouth at [place] 00 bedtime. Medical May cut Branch tablet in half. traZODone 2022-0 Yes [id number] 50mg Take 1 [facility] nivers 50 mg 3-09 tablet by [facility] of tablet 00:00: mouth at [place] [address] bedtime. Medical May cut Branch tablet in half. traZODone 2022-0 Yes [id number] 50mg Take 1 [facility] nivers 50 mg 3-09 tablet by [facility] of tablet 00:00: mouth at [place] 00 bedtime. Medical May cut Branch tablet in half. traZODone 2022-0 3- No [id number] 50mg Take 1 [facility] 50 mg 3-09 06-14 tablet by [facility] of tablet 00:00: 00:00 mouth at [place] 00 :00 bedtime. Medical May cut Branch tablet in half. traZODone 2022-0 3- No [id number] 50mg Take 1 [facility] 50 mg 3-09 06-14 tablet by [facility] of tablet 00:00: 00:00 mouth at [place] 00 :00 bedtime. Medical May cut Branch tablet in half. traZODone 2022-0 2023- No [id number] 50mg Take 1 [facility] 50 mg 04-20 tablet by [facility] of tablet 00:00: 00:00 mouth at [place] 00 :00 bedtime. Medical May cut Branch tablet in half. traZODone 2023-0 3- No [id number] 50mg Take 1 [facility] 50 mg 04-20 tablet by [facility] of tablet 00:00: 00:00 mouth at [place] 00 :00 bedtime. Medical May cut Branch tablet in half. lamoTRIgine 2023-0 3- No [id number] 100mg Take 1 [facility] 100 mg 04-20 tablet by [facility] of tablet 00:00: 00:00 mouth in [place] 00 :00 the Medical morning Branch and 1 tablet in the evening. lamoTRIgine 2023-0 3- No [id number] 100mg Take 1 [facility] 100 mg 04-20 tablet by [facility] of tablet 00:00: 00:00 mouth in [place] 00 :00 the Medical morning Branch and 1 tablet in the evening. lamoTRIgine 2023-0 3- No [id number] 100mg Take 1 [facility] 100 mg 04-20 tablet by [facility] of tablet 00:00: 00:00 mouth in [place] 00 :00 the Medical morning Branch and 1 tablet in the evening. lamoTRIgine 2023-0 3- No [id number] 100mg Take 1 [facility] 100 mg 04-20 tablet by [facility] of tablet 00:00: 00:00 mouth in [place] 00 :00 the Medical morning Branch and 1 tablet in the evening. clonazePAM 2023-0 3- No [id number] Take 1 [facility] 1 mg tablet 04-2024 tablet by it y of 00:00: 00:00 mouth [place] 00 :00 twice Medical daily as Branch needed for anxiety. clonazePAM 2023-0 2022- No [id number] Take 1 [facility] 1 mg tablet 04-20-24 tablet by it y of 00:00: 00:00 mouth [place] 00 :00 twice Medical daily as Branch needed for anxiety. clonazePAM 2023-0 2022- No [id number] Take 1 [facility] 1 mg tablet 04-20 tablet by it y of 00:00: 00:00 mouth [place] 00 :00 twice Medical daily as Branch needed for anxiety. clonazePAM 2023-0 3- No [id number] Take 1 [facility] 1 mg tablet 04-20 tablet by it y of 00:00: 00:00 mouth [place] 00 :00 twice Medical daily as Branch needed for anxiety. clonazePAM 2022- No [id number] Take 1 [facility] 1 mg tablet 04-20 tablet by it y of 00:00: 00:00 mouth [place] 00 :00 twice Medical daily as Branch needed for anxiety. DULoxetine 2022- No [id number] 60mg Take 1 [facility] 60 mg 04-20- capsule by it[facility] of capsule 00:00: 00:00 mouth in [place] 00 :00 the Medical morning Branch and 1 capsule in the evening. lithium 2022- No [id number] 900mg Take 2 Un cristhian carbonate 04-20- tablets by ity of CR 450 mg 00:00: 00:00 mouth [place] [facility] 00 :[facility] No [id number] 60mg Take 1 [facility] 60 mg 04-20- capsule by ity of capsule 00:00: 00:00 mouth in [place] 00 :00 the Medical morning Branch and 1 capsule in the evening. lithium 2022- No [id number] 900mg Take 2 Un cristhian carbonate 04-20-06 tablets by ity of CR 450 mg 00:00: 00:00 mouth [place] tablet 00 :[facility]- No [id number] 60mg Take 1 [facility] 60 mg 04-20- capsule by ity of capsule 00:00: 00:00 mouth in [place] 00 :00 the Medical morning Branch and 1 capsule in the evening. lithium 2022- No [id number] 900mg Take 2 Un cristhian carbonate 04-20-06 tablets by ity of CR 450 mg 00:00: 00:00 mouth at [place] tablet 00 :00 bedtime. Medica l Branch lamoTRIgine 2022-0 Yes [id number] 100mg Take 1 [facility] 100 mg 1-26 tablet by ity of tablet 00:00: mouth in [place] 00 the Medical morning Branch and 1 tablet in the evening. lamoTRIgine 2022-0 Yes [id number] 100mg Take 1 [facility] 100 mg 1-26 tablet by ity of tablet 00:00: mouth in [place] 00 the [facility] morning [place] and 1 tablet in the evening. lamoTRIgine 2023-0 Yes [id number] 100mg Take 1 [facility] 100 mg 1-26 tablet by ity of tablet 00:00: mouth in [place] 00 the [facility] morning [place] and 1 tablet in the evening. lamoTRIgine 2023-0 Yes [id number] 100mg Take 1 [facility] 100 mg 1-26 tablet by ity of tablet 00:00: mouth in [place] 00 the [facility] morning [place] and 1 tablet in the evening. lamoTRIgine 2023-0 2023- No [id number] 100mg Take 1 [facility] 100 mg 1-26 03-09 tablet by ity of tablet 00:00: 00:00 mouth in [place] 00 :00 the [facility] and 1 tablet in the evening. lamoTRIgine 3-0 2023- No [id number] 100mg Take 1 [facility] 100 mg 1-26 03-09 tablet by ity of tablet 00:00: 00:00 mouth in [place] 00 :00 the [facility] and 1 tablet in the evening. DULoxetine 2023-0 Yes [id number] 60mg Take 1 [facility] nivers 60 mg 1-04 capsule by ity of capsule 00:00: mouth in [place] [address] the [facility] and 1 capsule in the evening. lamoTRIgine 3-0 Yes [id number] 100mg Take 1 [facility] 100 mg 1-04 tablet by ity of tablet 00:00: mouth in [place] 00 the [facility] and 1 tablet in the evening. traZODone 2023-0 Yes [id number] 50mg Take 1 [facility] nivers 50 mg 1-04 tablet by ity of tablet 00:00: mouth at [place] [address] bedtime. Medical May cut Branch tablet in half. clonazePAM 2023-0 Yes [id number] Take 1 [facility] nivers 1 mg tablet 1-04 tablet by ity of 00:00: mouth [place] 00 twice Medical daily as Branch needed for anxiety. lithium 600 2023-0 Yes [id number] 600mg Take 1 [facility] mg capsule 1-04 capsule by ity of 00:00: mouth in [place] [address] the [facility] and 1 capsule in the evening. DULoxetine 2023-0 Yes [id number] 60mg Take 1 [facility] nivers 60 mg 1-04 capsule by ity of capsule 00:00: mouth in [place] 00 the Medical morning Branch and 1 capsule in the evening. lamoTRIgine 2023-0 Yes [id number] 100mg Take 1 [facility] 100 mg 1-04 tablet by ity of tablet 00:00: mouth in [place] 00 the Medical morning Branch and 1 tablet in the evening. traZODone 2023-0 Yes [id number] 50mg Take 1 [facility] nivers 50 mg 1-04 tablet by ity of tablet 00:00: mouth at [place] 00 bedtime. Medical May cut Branch tablet in half. clonazePAM 2023-0 Yes [id number] Take 1 [facility] nivers 1 mg tablet 1-04 tablet by ity of 00:00: mouth [place] 00 twice Medical daily as Branch needed for anxiety. lithium 3-0 Yes [id number] 900mg Take 2 [facility] vers carbonate 1-04 tablets by [facility] of CR 450 mg 00:00: [place] tablet 00 bedtime. Medica l Branch DULoxetine 3-0 Yes [id number] 60mg Take 1 [facility] nivers 60 mg 1-04 capsule by ity of capsule 00:00: mouth in [place] 00 the Medical morning Branch and 1 capsule in the evening. lamoTRIgine 3-0 Yes [id number] 100mg Take 1 [facility] 100 mg 1-04 tablet by ity of tablet 00:00: mouth in [place] 00 the Medical morning Branch and 1 tablet in the evening. traZODone 3-0 Yes [id number] 50mg Take 1 [facility] nivers 50 mg 1-04 tablet by ity of tablet 00:00: mouth at [place] [address] bedtime. Medical May cut Branch tablet in half. clonazePAM 3-0 Yes [id number] Take 1 [facility] nivers 1 mg tablet 1-04 tablet by ity of 00:00: mouth [place] 00 twice Medical daily as Branch needed for anxiety. lithium 2023-0 Yes [id number] 900mg Take 2 [facility] vers carbonate 1-04 tablets by ity of CR 450 mg 00:00: [place] tablet 00 bedtime. Medica l Branch DULoxetine 2023-0 Yes [id number] 60mg Take 1 [facility] nivers 60 mg 1-04 capsule by ity of capsule 00:00: mouth in [place] [address] the Medical morning Branch and 1 capsule in the evening. lamoTRIgine 2023-0 Yes [id number] 100mg Take 1 [facility] 100 mg 1-04 tablet by ity of tablet 00:00: mouth in [place] 00 the Medical morning Branch and 1 tablet in the evening. traZODone 2023-0 Yes [id number] 50mg Take 1 [facility] nivers 50 mg 1-04 tablet by ity of tablet 00:00: mouth at [place] 00 bedtime. Medical May cut Branch tablet in half. clonazePAM 2023-0 Yes [id number] Take 1 [facility] nivers 1 mg tablet 1-04 tablet by ity of 00:00: mouth [place] 00 twice Medical daily as Branch needed for anxiety. lithium 2023-0 Yes [id number] 900mg Take 2 [facility] vers carbonate 1-04 tablets by ity of CR 450 mg 00:00: [place] SR tablet 00 bedtime. Medica l Branch DULoxetine 3-0 Yes [id number] 60mg Take 1 [facility] nivers 60 mg 1-04 capsule by ity of capsule 00:00: mouth in [place] 00 the Medical morning Branch and 1 capsule in the evening. lamoTRIgine 3-0 Yes [id number] 100mg Take 1 [facility] 100 mg 1-04 tablet by ity of tablet 00:00: mouth in [place] 00 the Medical morning Branch and 1 tablet in the evening. traZODone 3-0 Yes [id number] 50mg Take 1 [facility] nivers 50 mg 1-04 tablet by ity of tablet 00:00: mouth at [place] 00 bedtime. Medical May cut Branch tablet in half. clonazePAM 3-0 Yes [id number] Take 1 [facility] nivers 1 mg tablet 1-04 tablet by ity of 00:00: mouth [place] 00 twice Medical daily as Branch needed for anxiety. lithium 3-0 Yes [id number] 900mg Take 2 [facility] vers carbonate 1-04 tablets by [facility]y of CR 450 mg 00:00: [place] tablet 00 bedtime. Medica l Branch DULoxetine 2023-0 Yes [id number] 60mg Take 1 [facility] nivers 60 mg 1-04 capsule by ity of capsule 00:00: mouth in [place] 00 the Medical morning Branch and 1 capsule in the evening. lamoTRIgine 2023-0 Yes [id number] 100mg Take 1 [facility] 100 mg 1-04 tablet by ity of tablet 00:00: mouth in [place] 00 the Medical morning Branch and 1 tablet in the evening. traZODone 2023-0 Yes [id number] 50mg Take 1 [facility] nivers 50 mg 1-04 tablet by ity of tablet 00:00: mouth at [place] 00 bedtime. Medical May cut Branch tablet in half. clonazePAM 2022-0 Yes [id number] Take 1 [facility] nivers 1 mg tablet 1-04 tablet by ity of 00:00: mouth [place] 00 twice Medical daily as Branch needed for anxiety. lithium 2022-0 Yes [id number] 900mg Take 2 [facility] vers carbonate 1-04 tablets by ity of CR 450 mg 00:00: [place] SR tablet 00 bedtime. Medica l Branch DULoxetine 2022-0 Yes [id number] 60mg Take 1 [facility] nivers 60 mg 1-04 capsule by ity of capsule 00:00: mouth in [place] 00 the Medical morning Branch and 1 capsule in the evening. traZODone 2022-0 Yes [id number] 50mg Take 1 [facility] nivers 50 mg 1-04 tablet by ity of tablet 00:00: mouth at [place] 00 bedtime. Medical May cut Branch tablet in half. clonazePAM 2022-0 Yes [id number] Take 1 [facility] nivers 1 mg tablet 1-04 tablet by ity of 00:00: mouth [place] 00 twice Medical daily as Branch needed for anxiety. lithium 2022-0 Yes [id number] 900mg Take 2 [facility] vers carbonate 1-04 tablets by ity of CR 450 mg 00:00: mouth [place] SR tablet 00 bedtime. Medica l Branch DULoxetine 2022-0 Yes [id number] 60mg Take 1 [facility] nivers 60 mg 1-04 capsule by ity of capsule 00:00: mouth in [place] 00 the Medical morning Branch and 1 capsule in the evening. traZODone 2022-0 Yes [id number] 50mg Take 1 [facility] nivers 50 mg 1-04 tablet by ity of tablet 00:00: mouth at [place] 00 bedtime. Medical May cut Branch tablet in half. clonazePAM 2022-0 Yes [id number] Take 1 [facility] nivers 1 mg tablet 1-04 tablet by ity of 00:00: mouth [place] 00 twice Medical daily as Branch needed for anxiety. lithium 2022-0 Yes [id number] 900mg Take 2 [facility] vers carbonate 1-04 tablets by ity of CR 450 mg 00:00: mouth [place] SR tablet 00 bedtime. Medica l Branch DULoxetine 2022-0 Yes [id number] 60mg Take 1 [facility] nivers 60 mg 1-04 capsule by ity of capsule 00:00: mouth in [place] 00 the Medical morning Branch and 1 capsule in the evening. traZODone 2022-0 Yes [id number] 50mg Take 1 [facility] nivers 50 mg 1-04 tablet by ity of tablet 00:00: mouth at [place] 00 bedtime. Medical May cut Branch tablet in half. clonazePAM 2022-0 Yes [id number] Take 1 [facility] nivers 1 mg tablet 1-04 tablet by ity of 00:00: mouth [place] 00 twice Medical daily as Branch needed for anxiety. lithium 2022-0 Yes [id number] 900mg Take 2 [facility] vers carbonate 1-04 tablets by ity of CR 450 mg 00:00: [place] tablet 00 bedtime. Medica l Branch DULoxetine 2022-0 Yes [id number] 60mg Take 1 [facility] nivers 60 mg 1-04 capsule by ity of capsule 00:00: mouth in [place] 00 the Medical morning Branch and 1 capsule in the evening. traZODone 2022-0 Yes [id number] 50mg Take 1 [facility] nivers 50 mg 1-04 tablet by ity of tablet 00:00: mouth at [place] 00 bedtime. Medical May cut Branch tablet in half. clonazePAM 2022-0 Yes [id number] Take 1 [facility] nivers 1 mg tablet 1-04 tablet by ity of 00:00: mouth [place] 00 twice Medical daily as Branch needed for anxiety. lithium 2022-0 Yes [id number] 900mg Take 2 [facility] vers carbonate 1-04 tablets by ity of CR 450 mg 00:00: mouth [place] SR tablet 00 bedtime. Medica l Branch traZODone 0 2022- No [id number] 50mg Take 1 [facility] 50 mg 1-04 03-09 tablet by ity of tablet 00:00: 00:00 mouth at [place] 00 :00 bedtime. Medical May cut Branch tablet in half. lithium 2022-0 2022- No [id number] 900mg Take 2 Un cristhian carbonate 1-04 03-09 tablets by ity of CR 450 mg 00:00: 00:00 mouth at [place] tablet 00 :00 bedtime. Medica l Branch traZODone 20232022- No [id number] 50mg Take 1 [facility] 50 mg 02-15 tablet by ity of tablet 00:00: 00:00 mouth at [place] 00 :00 bedtime. Medical May cut Branch tablet in half. lithium 2022-2022- No [id number] 900mg Take 2 Un cristhian carbonate 02-15 tablets by ity of CR 450 mg 00:00: 00:00 mouth at [facility] as SR tablet 00 :00 bedtime. Medica l Branch DULoxetine 2022-2022- No [id number] 60mg Take 1 [facility] 60 mg 02-15 capsule by ity of capsule 00:00: 00:00 mouth in [place] 00 :00 the Medical morning Branch and 1 capsule in the evening. clonazePAM 2022- No [id number] Take 1 [facility] 1 mg tablet 02-15 tablet by it y of 00:00: 00:00 mouth [place] 00 :00 twice Medical daily as Branch needed for anxiety. DULoxetine 2022-2022- No [id number] 60mg Take 1 [facility] 60 mg 02-15 capsule by ity of capsule 00:00: 00:00 mouth in [place] 00 :00 the Medical morning Branch and 1 capsule in the evening. clonazePAM 2022-2022- No [id number] Take 1 [facility] 1 mg tablet 02-15 tablet by it y of 00:00: 00:00 mouth [place] 00 :00 twice Medical daily as Branch needed for anxiety. lamoTRIgine 2022-0 2022- No [id number] 100mg Take 1 [facility] 100 mg 02-15 tablet by ity of tablet 00:00: 00:00 mouth in [place] 00 :00 the Medical morning Branch and 1 tablet in the evening. lamoTRIgine 2022-0 2022- No [id number] 100mg Take 1 [facility] 100 mg 02-15 tablet by ity of tablet 00:00: 00:00 mouth in [place] 00 :00 the Medical morning Branch and 1 tablet in the evening. lamoTRIgine 2022-0 2022- No [id number] 100mg Take 1 [facility] 100 mg 02-15 tablet by ity of tablet 00:00: 00:00 mouth in [place] 00 :00 the Medical morning Branch and 1 tablet in the evening. lamoTRIgine 2022-0 2022- No [id number] 100mg Take 1 [facility] 100 mg 02-15 tablet by ity of tablet 00:00: 00:00 mouth in [place] 00 :00 the Medical morning Branch and 1 tablet in the evening. lithium 600 2022-0 2022- No [id number] 600mg Take 1 [facility] mg capsule 02-15 capsule by it y of 00:00: 00:00 mouth in [place] 00 :00 the Medical morning Branch and 1 capsule in the evening. lithium 600 2022-0 2022- No [id number] 600mg Take 1 [facility] mg capsule 02-15 capsule by it y of 00:00: 00:00 mouth in [place] 00 :00 the Medical morning Branch and 1 capsule in the evening. lithium 600 2022-0 2022- No [id number] 600mg Take 1 [facility] mg capsule 02-15 capsule by it y of 00:00: 00:00 mouth in [place] 00 :00 the Medical morning Branch and 1 capsule in the evening. lithium 600 2022-0 2022- No [id number] 600mg Take 1 [facility] mg capsule 02-15 capsule by it y of 00:00: 00:00 mouth in [place] 00 :00 the Medical morning Branch and 1 capsule in the evening. lithium 600 2022-0 3- No [id number] 600mg Take 1 [facility] mg capsule 02-15 capsule by it y of 00:00: 00:00 mouth in [place] 00 :00 the Medical morning Branch and 1 capsule in the evening. lithium 600 2022-0 3- No [id number] 600mg Take 1 [facility] mg capsule 02-15 capsule by it y of 00:00: 00:00 mouth in [place] 00 :00 the Medical morning Branch and 1 capsule in the evening. lithium 600 2022-0 3- No [id number] 600mg Take 1 [facility] mg capsule 02-15 capsule by it y of 00:00: 00:00 mouth in [place] 00 :00 the Medical morning Branch and 1 capsule in the evening. lithium 600 2022-0 3- No [id number] 600mg Take 1 [facility] mg capsule 02-15 capsule by it y of 00:00: 00:00 mouth in [place] 00 :00 the Medical morning Branch and 1 capsule in the evening. DULoxetine 2021-02 Yes [id number] 60mg Take 1 U nivers 60 mg 2-28 capsule by ity of capsule 00:00: mouth in [place] 00 the Medical morning Branch and 1 capsule in the evening. DULoxetine 2021-02- No [id number] 60mg Take 1 [facility] 60 mg 2-28 -04 capsule by ity of capsule 00:00: 00:00 mouth in [place] 00 :00 the Medical morning Branch and 1 capsule in the evening. DULoxetine 2021-02- No [id number] 60mg Take 1 [facility] 60 mg 2-28 -04 capsule by ity of capsule 00:00: 00:00 mouth in [place] 00 :00 the Medical morning Branch and 1 capsule in the evening. DULoxetine 2021-02- No [id number] 60mg Take 1 [facility] 60 mg 2-28 - capsule by ity of capsule 00:00: 00:00 mouth in [place] 00 :00 the Medical morning Branch and 1 capsule in the evening. DULoxetine 2021-02- No [id number] 60mg Take 1 [facility] 60 mg 2-28 - capsule by ity of capsule 00:00: 00:00 mouth in [place] 00 :00 the Medical morning Branch and 1 capsule in the evening. DULoxetine 2021-02- No [id number] 60mg Take 1 [facility] 60 mg 2-28 - capsule by ity of capsule 00:00: 00:00 mouth in [place] 00 :00 the Medical morning Branch and 1 capsule in the evening. DULoxetine 2021-02- No [id number] 60mg Take 1 [facility] 60 mg 2-11 03- capsule by ity of capsule 00:00: 00:00 mouth in [place] 00 :00 the Medical morning Branch and 1 capsule in the evening. DULoxetine 2021-02- No [id number] 60mg Take 1 [facility] 60 mg 2-28 -04 capsule by ity of capsule 00:00: 00:00 mouth in [place] 00 :00 the Medical morning Branch and 1 capsule in the evening. DULoxetine 2021-02- No [id number] 60mg Take 1 [facility] 60 mg 2-28 -04 capsule by ity of capsule 00:00: 00:00 mouth in [place] 00 :00 the Medical morning Branch and 1 capsule in the evening. lamoTRIgine 2021-02 Yes [id number] 100mg Take 1 [facility] 100 mg 2-22 tablet by ity of tablet 00:00: mouth in [place] 00 the Medical morning Branch and 1 tablet in the evening. lamoTRIgine 2021- Yes [id number] 100mg Take 1 [facility] 100 mg 2-22 tablet by ity of tablet 00:00: mouth in [place] 00 the Medical morning Branch and 1 tablet in the evening. lamoTRIgine 2021-3- No [id number] 100mg Take 1 [facility] 100 mg 2-22 -04 tablet by ity of tablet 00:00: 00:00 mouth in [place] 00 :00 the Medical morning Branch and 1 tablet in the evening. lamoTRIgine 2021-3- No [id number] 100mg Take 1 [facility] 100 mg 2-22 -04 tablet by ity of tablet 00:00: 00:00 mouth in [place] 00 :00 the Medical morning Branch and 1 tablet in the evening. lamoTRIgine 2021-2022- No [id number] 100mg Take 1 [facility] 100 mg 2-22 -04 tablet by ity of tablet 00:00: 00:00 mouth in [place] 00 :00 the Medical morning Branch and 1 tablet in the evening. lamoTRIgine 2021-3- No [id number] 100mg Take 1 [facility] 100 mg 2-22 -04 tablet by ity of tablet 00:00: 00:00 mouth in [place] 00 :00 the Medical morning Branch and 1 tablet in the evening. lamoTRIgine 2021-3- No [id number] 100mg Take 1 [facility] 100 mg 2-22 -04 tablet by ity of tablet 00:00: 00:00 mouth in [place] 00 :00 the Medical morning Branch and 1 tablet in the evening. lamoTRIgine 2021-3- No [id number] 100mg Take 1 [facility] 100 mg 2-22 01-04 tablet by ity of tablet 00:00: 00:00 mouth in [place] 00 :00 the Medical morning Branch and 1 tablet in the evening. lamoTRIgine 2021-3- No [id number] 100mg Take 1 [facility] 100 mg 2-22 -04 tablet by ity of tablet 00:00: 00:00 mouth in [place] 00 :00 the Medical morning Branch and 1 tablet in the evening. lamoTRIgine 2021-3- No [id number] 100mg Take 1 [facility] 100 mg 2-05 03-04 tablet by ity of tablet 00:00: 00:00 mouth in [place] 00 :00 the Medical morning Branch and 1 tablet in the evening. traZODone 2021-02 Yes [id number] 50mg Take 1 [facility] nivers 50 mg 1-30 tablet by ity of tablet 00:00: mouth at [place] 00 bedtime. Medical May cut Branch tablet in half. lamoTRIgine 2021-02 Yes [id number] 100mg Take 1 [facility] 100 mg 1-30 tablet by ity of tablet 00:00: mouth in [place] 00 the Medical morning Branch and 1 tablet in the evening. traZODone 2021-02 Yes [id number] 50mg Take 1 [facility] nivers 50 mg 1-30 tablet by ity of tablet 00:00: mouth at [place] 00 bedtime. Medical May cut Branch tablet in half. lamoTRIgine 2021-02 Yes [id number] 100mg Take 1 [facility] 100 mg 1-30 tablet by ity of tablet 00:00: mouth in [place] 00 the Medical morning Branch and 1 tablet in the evening. traZODone 2021-02 Yes [id number] 50mg Take 1 [facility] nivers 50 mg 1-30 tablet by [facility]y of tablet 00:00: mouth at [place] 00 bedtime. Medical May cut Branch tablet in half. lamoTRIgine 2021-02 Yes [id number] 100mg Take 1 [facility] 100 mg 1-30 tablet by [facility]y of tablet 00:00: mouth in [place] 00 the Medical morning Branch and 1 tablet in the evening. traZODone 2021-02 Yes [id number] 50mg Take 1 [facility] nivers 50 mg 1-30 tablet by [facility]y of tablet 00:00: mouth at [place] 00 bedtime. Medical May cut Branch tablet in half. traZODone 2021-02 Yes [id number] 50mg Take 1 [facility] nivers 50 mg 1-30 tablet by ity of tablet 00:00: mouth at [place] 00 bedtime. Medical May cut Branch tablet in half. traZODone 2021-02- No [id number] 50mg Take 1 [facility] 50 mg 1-30 - tablet by ity of tablet 00:00: 00:00 mouth at [place] 00 :00 bedtime. Medical May cut Branch tablet in half. traZODone 2021-02- No [id number] 50mg Take 1 [facility] 50 mg 1-30 -04 tablet by ity of tablet 00:00: 00:00 mouth at [place] 00 :00 bedtime. Medical May cut Branch tablet in half. traZODone 2021-02- No [id number] 50mg Take 1 [facility] 50 mg 1-30 -04 tablet by [facility]y of tablet 00:00: 00:00 mouth at [place] 00 :00 bedtime. Medical May cut Branch tablet in half. traZODone 2021-02- No [id number] 50mg Take 1 [facility] 50 mg 1-30 -04 tablet by [facility]y of tablet 00:00: 00:00 mouth at [place] 00 :00 bedtime. Medical May cut Branch tablet in half. traZODone 2021-02- No [id number] 50mg Take 1 [facility] 50 mg 1-30 -04 tablet by [facility]y of tablet 00:00: 00:00 mouth at [place] 00 :00 bedtime. Medical May cut Branch tablet in half. traZODone 2021-02- No [id number] 50mg Take 1 [facility] 50 mg 1-30 -04 tablet by [facility]y of tablet 00:00: 00:00 mouth at [place] 00 :00 bedtime. Medical May cut Branch tablet in half. traZODone 2021-02- No [id number] 50mg Take 1 [facility] 50 mg 1-30 -04 tablet by [facility]y of tablet 00:00: 00:00 mouth at [place] 00 :00 bedtime. Medical May cut Branch tablet in half. traZODone 2021-02- No [id number] 50mg Take 1 [facility] 50 mg 1-30 -04 tablet by ity of tablet 00:00: 00:00 mouth at [place] 00 :00 bedtime. Medical May cut Branch tablet in half. lamoTRIgine 2021-02- No [id number] 100mg Take 1 [facility] 100 mg 1-30 12-22 tablet by [facility] tablet 00:00: 00:00 mouth in [place] 00 :00 the Medical morning Branch and 1 tablet in the evening. lamoTRIgine 2021-02- No [id number] 100mg Take 1 [facility] 100 mg 1-30 12-22 tablet by [facility] of tablet 00:00: 00:00 mouth in [place] 00 :00 the Medical morning Branch and 1 tablet in the evening. lamoTRIgine 2021-02- No [id number] 100mg Take 1 [facility] 100 mg 1-30 12-22 tablet by [facility] of tablet 00:00: 00:00 mouth in [place] 00 :00 the Medical morning Branch and 1 tablet in the evening. lamoTRIgine 2021-02- No [id number] 100mg Take 1 [facility] 100 mg 1-30 12-22 tablet by [facility] of tablet 00:00: 00:00 mouth in [place] 00 :00 the Medical morning Branch and 1 tablet in the evening. lamoTRIgine 2021-02- No [id number] 100mg Take 1 [facility] 100 mg 1-30 12-22 tablet by [facility] of tablet 00:00: 00:00 mouth in [place] 00 :00 the Medical morning Branch and 1 tablet in the evening. DULoxetine 2021-02 Yes [id number] 60mg Take 1 [facility] 60 mg 1-28 capsule by [facility] of capsule 00:00: mouth in [place] 00 the Medical morning Branch and 1 capsule in the evening. clonazePAM 2021-02 Yes [id number] Take 1 [facility] 1 mg tablet 1-28 tablet by [facility] of 00:00: mouth [place] 00 twice Medical daily as Branch needed for anxiety. DULoxetine 2021-02 Yes [id number] 60mg Take 1 [facility] 60 mg 1-28 capsule by [facility] of capsule 00:00: mouth in [place] 00 the Medical morning Branch and 1 capsule in the evening. clonazePAM 2021-02 Yes [id number] Take 1 [facility] 1 mg tablet 1-28 tablet by [facility] of 00:00: mouth [place] 00 twice Medical daily as Branch needed for anxiety. DULoxetine 2021-02 Yes [id number] 60mg Take 1 [facility] 60 mg 1-28 capsule by [facility] of capsule 00:00: mouth in [place] 00 the Medical morning Branch and 1 capsule in the evening. clonazePAM 2021-02 Yes [id number] Take 1 [facility] 1 mg tablet 1-28 tablet by [facility] of 00:00: mouth [place] 00 twice Medical daily as Branch needed for anxiety. DULoxetine 2021-02 Yes [id number] 60mg Take 1 [facility] 60 mg 1-28 capsule by [facility] of capsule 00:00: mouth in [place] 00 the Medical morning Branch and 1 capsule in the evening. clonazePAM 2021-02 Yes [id number] Take 1 [facility] 1 mg tablet 1-28 tablet by [facility] of 00:00: mouth [place] 00 twice Medical daily as Branch needed for anxiety. DULoxetine 2021-02 Yes [id number] 60mg Take 1 [facility] 60 mg 1-28 capsule by [facility] of capsule 00:00: mouth in [place] 00 the Medical morning Branch and 1 capsule in the evening. clonazePAM 2021-02 Yes [id number] Take 1 [facility] 1 mg tablet 1-28 tablet by [facility] of 00:00: mouth [place] 00 twice Medical daily as Branch needed for anxiety. DULoxetine 2021-02 Yes [id number] 60mg Take 1 [facility] 60 mg 1-28 capsule by [facility] of capsule 00:00: mouth in [place] 00 the Medical morning Branch and 1 capsule in the evening. clonazePAM 2021-02 Yes [id number] Take 1 [facility] 1 mg tablet 1-28 tablet by [facility] of 00:00: mouth [place] 00 twice Medical daily as Branch needed for anxiety. clonazePAM 2021-02 Yes [id number] Take 1 [facility] 1 mg tablet 1-28 tablet by [facility] of 00:00: mouth [place] 00 twice Medical daily as Branch needed for anxiety. clonazePAM 2021-02- No [id number] Take 1 [facility] 1 mg tablet 03-11 tablet by it y of 00:00: 00:00 mouth [place] 00 :00 twice Medical daily as Branch needed for anxiety. clonazePAM 2021-02- No [id number] Take 1 [facility] 1 mg tablet 03-11 tablet by it y of 00:00: 00:00 mouth [place] 00 :00 twice Medical daily as Branch needed for anxiety. clonazePAM 2021-02- No [id number] Take 1 [facility] 1 mg tablet 03-11 tablet by it y of 00:00: 00:00 mouth [place] 00 :00 twice Medical daily as Branch needed for anxiety. clonazePAM 2021-02- No [id number] Take 1 [facility] 1 mg tablet 03-11 tablet by it y of 00:00: 00:00 mouth [place] 00 :00 twice Medical daily as Branch needed for anxiety. clonazePAM 2021-02- No [id number] Take 1 [facility] 1 mg tablet 03-11 tablet by it y of 00:00: 00:00 mouth [place] 00 :00 twice Medical daily as Branch needed for anxiety. clonazePAM 2021-02- No [id number] Take 1 [facility] 1 mg tablet 03-11 tablet by it y of 00:00: 00:00 mouth [place] 00 :00 twice Medical daily as Branch needed for anxiety. clonazePAM 2021-02- No [id number] Take 1 [facility] 1 mg tablet 03-11 tablet by it y of 00:00: 00:00 mouth [place] 00 :00 twice Medical daily as Branch needed for anxiety. clonazePAM 2021-02- No [id number] Take 1 [facility] 1 mg tablet 03-11 tablet by it y of 00:00: 00:00 mouth [place] 00 :00 twice Medical daily as Branch needed for anxiety. DULoxetine 2021-02- No [id number] 60mg Take 1 [facility] 60 mg 1-28 12-27 capsule by [facility] of capsule 00:00: 00:00 mouth in [place] 00 :00 the Medical morning Branch and 1 capsule in the evening. DULoxetine 2021-02- No [id number] 60mg Take 1 [facility] 60 mg 1-28 12-27 capsule by [facility] of capsule 00:00: 00:00 mouth in [place] 00 :00 the Medical morning Branch and 1 capsule in the evening. DULoxetine 2021-02- No [id number] 60mg Take 1 [facility] 60 mg 1-28 12-27 capsule by [facility] of capsule 00:00: 00:00 mouth in [place] 00 :00 the Medical morning Branch and 1 capsule in the evening. DULoxetine 2021-02- No [id number] 60mg Take 1 [facility] 60 mg 1-28 12-27 capsule by [facility] of capsule 00:00: 00:00 mouth in [place] 00 :00 the Medical morning Branch and 1 capsule in the evening. DULoxetine 2021-02- No [id number] 60mg Take 1 [facility] 60 mg 1-28 12-27 capsule by [facility] of capsule 00:00: 00:00 mouth in [place] 00 :00 the Medical morning Branch and 1 capsule in the evening. traZODone 2021-02 Yes [id number] 50mg Take 1 [facility] 50 mg 1-22 tablet by [facility] of tablet 00:00: mouth at [place] 00 bedtime. Medical May cut Branch tablet in half. traZODone 2021-02 Yes [id number] 50mg Take 1 [facility] 50 mg 1-22 tablet by [facility] of tablet 00:00: mouth at [place] 00 bedtime. Medical May cut Branch tablet in half. traZODone 2021-02 Yes [id number] 50mg Take 1 [facility] 50 mg 1-22 tablet by [facility] of tablet 00:00: mouth at [place] 00 bedtime. Medical May cut Branch tablet in half. traZODone 2021-02- No [id number] 50mg Take 1 [facility] 50 mg 1-22 11-30 tablet by [facility] of tablet 00:00: 00:00 mouth at [place] 00 :00 bedtime. Medical May cut Branch tablet in half. traZODone 2021-02- No [id number] 50mg Take 1 [facility] 50 mg 1-22 11-30 tablet by [facility] of tablet 00:00: 00:00 mouth at [place] 00 :00 bedtime. Medical May cut Branch tablet in half. traZODone 2021-02- No [id number] 50mg Take 1 [facility] 50 mg 1-22 11-30 tablet by [facility] of tablet 00:00: 00:00 mouth at [place] 00 :00 bedtime. Medical May cut Branch tablet in half. traZODone 2021-02- No [id number] 50mg Take 1 [facility] 50 mg 1-22 11-30 tablet by [facility] of tablet 00:00: 00:00 mouth at [place] 00 :00 bedtime. Medical May cut Branch tablet in half. traZODone 2021-02- No [id number] 50mg Take 1 [facility] 50 mg 1-22 11-30 tablet by [facility] of tablet 00:00: 00:00 mouth at [place] 00 :00 bedtime. Medical May cut Branch tablet in half. DULoxetine 2021-02 Yes [id number] 60mg Take 1 [facility] 60 mg 0-25 capsule by [facility] of capsule 00:00: mouth in [place] 00 the Medical morning Branch and 1 capsule in the evening. DULoxetine 2021-02 Yes [id number] 60mg Take 1 [facility] 60 mg 0-25 capsule by [facility] of capsule 00:00: mouth in [place] 00 the Medical morning Branch and 1 capsule in the evening. DULoxetine 2021-02 Yes [id number] 60mg Take 1 [facility] 60 mg 0-25 capsule by [facility] of capsule 00:00: mouth in [place] 00 the Medical morning Branch and 1 capsule in the evening. DULoxetine 2021-02- No [id number] 60mg Take 1 [facility] 60 mg 0-25 11-28 capsule by [facility] of capsule 00:00: 00:00 mouth in [place] 00 :00 the Medical morning Branch and 1 capsule in the evening. DULoxetine 2021-02- No [id number] 60mg Take 1 [facility] 60 mg 0-25 11-28 capsule by [facility] of capsule 00:00: 00:00 mouth in [place] 00 :00 the Medical morning Branch and 1 capsule in the evening. DULoxetine 2021-02- No [id number] 60mg Take 1 [facility] 60 mg 0-25 11-28 capsule by [facility] of capsule 00:00: 00:00 mouth in [place] 00 :00 the Medical morning Branch and 1 capsule in the evening. DULoxetine 2021-02- No [id number] 60mg Take 1 [facility] 60 mg 0-25 11-28 capsule by [facility] of capsule 00:00: 00:00 mouth in [place] 00 :00 the Medical morning Branch and 1 capsule in the evening. DULoxetine 2021-02- No [id number] 60mg Take 1 [facility] 60 mg 0-25 11-28 capsule by [facility] of capsule 00:00: 00:00 mouth in [place] 00 :00 the Medical morning Branch and 1 capsule in the evening. clonazePAM 2021-02 Yes [id number] Take 1 [facility] 1 mg tablet 0-20 tablet by [facility] of 00:00: mouth [place] 00 twice Medical daily as Branch needed for anxiety. lithium 600 2021-02 Yes [id number] 600mg Take 1 [facility] mg capsule 0-20 capsule by [facility] of 00:00: mouth in [place] 00 the Medical morning Branch and 1 capsule in the evening. lamoTRIgine 2021-02 Yes [id number] 50mg Take 2 [facility] 25 mg 0-20 tablets by [facility] of tablet 00:00: mouth in [place] 00 the Medical morning Branch and 2 tablets in the evening. clonazePAM 2021-02 Yes [id number] Take 1 [facility] 1 mg tablet 0-20 tablet by it[facility] of 00:00: mouth [place] 00 twice Medical daily as Branch needed for anxiety. lithium 600 2021-02 Yes [id number] 600mg Take 1 [facility] mg capsule 0-20 capsule by it[facility] of 00:00: mouth in [place] [address] the [facility] morning [place] and 1 capsule in the evening. lamoTRIgine 2021-02 Yes [id number] 50mg Take 2 [facility] 25 mg 0-20 tablets by it[facility] of tablet 00:00: mouth in [place] [address] the [facility] morning [place] and 2 tablets in the evening. clonazePAM 2021-02 Yes [id number] Take 1 [facility] 1 mg tablet 0-20 tablet by ity of 00:00: mouth [place] [address] twice Medical daily as Branch needed for anxiety. lithium 600 2021-02 Yes [id number] 600mg Take 1 [facility] mg capsule 0-20 capsule by it[facility] of 00:00: mouth in [place] [address] the [facility] morning [place] and 1 capsule in the evening. lamoTRIgine 2021-02 Yes [id number] 50mg Take 2 [facility] 25 mg 0-20 tablets by it[facility] of tablet 00:00: mouth in [place] [address] the [facility] and 2 tablets in the evening. lithium 600 2021-02 Yes [id number] 600mg Take 1 [facility] mg capsule 0-20 capsule by it[facility] of 00:00: mouth in [place] [address] the [facility] morning [place] and 1 capsule in the evening. lamoTRIgine 2021-02 Yes [id number] 50mg Take 2 [facility] 25 mg 0-20 tablets by it[facility] of tablet 00:00: mouth in [place] [address] the [facility] and 2 tablets in the evening. lithium 600 2021-02 Yes [id number] 600mg Take 1 [facility] mg capsule 0-20 capsule by ity of 00:00: mouth in [place] [address] the [facility] and 1 capsule in the evening. lamoTRIgine 2021-02 Yes [id number] 50mg Take 2 [facility] 25 mg 0-20 tablets by ity of tablet 00:00: mouth in [address] morning [place] and 2 tablets in the evening. lithium 600 2021-02 Yes [id number] 600mg Take 1 [facility] mg capsule 0-20 capsule by ity of 00:00: mouth in [address] and 1 capsule in the evening. lithium 600 2021-02 Yes [id number] 600mg Take 1 [facility] mg capsule 0-20 capsule by ity of 00:00: mouth in [address] and 1 capsule in the evening. lithium 600 2021-02 Yes [id number] 600mg Take 1 [facility] mg capsule 0-20 capsule by ity of 00:00: mouth in [place] 00 the Medical morning Branch and 1 capsule in the evening. lithium 600 2021-02 Yes [id number] 600mg Take 1 [facility] mg capsule 0-20 capsule by it[facility] of 00:00: mouth in [place] 00 the Medical morning Branch and 1 capsule in the evening. lithium 600 2021-02 Yes [id number] 600mg Take 1 [facility] mg capsule 0-20 capsule by ity of 00:00: mouth in [place] 00 the Medical morning Branch and 1 capsule in the evening. lithium 600 2021-02- No [id number] 600mg Take 1 [facility] mg capsule 0-20 01-04 capsule by it y of 00:00: 00:00 mouth in [place] 00 :00 the Medical morning Branch and 1 capsule in the evening. lithium 600 2021-02- No [id number] 600mg Take 1 [facility] mg capsule 0-20 01-04 capsule by it y of 00:00: 00:00 mouth in [place] 00 :00 the Medical morning Branch and 1 capsule in the evening. lithium 600 2021-02- No [id number] 600mg Take 1 [facility] mg capsule 0-20 01-04 capsule by it y of 00:00: 00:00 mouth in [place] 00 :00 the Medical morning Branch and 1 capsule in the evening. lithium 600 2021-2022- No [id number] 600mg Take 1 [facility] mg capsule 0-20 01-04 capsule by it y of 00:00: 00:00 mouth in [place] 00 :00 the Medical morning Branch and 1 capsule in the evening. lithium 600 2021-02- No [id number] 600mg Take 1 [facility] mg capsule 0-20 01-04 capsule by it y of 00:00: 00:00 mouth in [place] 00 :00 the Medical morning Branch and 1 capsule in the evening. lithium 600 2021-2022- No [id number] 600mg Take 1 [facility] mg capsule 0-20 01-04 capsule by it y of 00:00: 00:00 mouth in [place] 00 :00 the Medical morning Branch and 1 capsule in the evening. lithium 600 2021-2022- No [id number] 600mg Take 1 [facility] mg capsule 0-20 01-04 capsule by it y of 00:00: 00:00 mouth in [place] 00 :00 the Medical morning Branch and 1 capsule in the evening. lithium 600 2021-02- No [id number] 600mg Take 1 [facility] mg capsule 0-20 01-04 capsule by it y of 00:00: 00:00 mouth in [place] 00 :00 the Medical morning Branch and 1 capsule in the evening. lamoTRIgine 2021-02- No [id number] 50mg Take 2 [facility] 25 mg 0-20 11-30 tablets by ity of tablet 00:00: 00:00 mouth in [place] 00 :00 the Medical morning Branch and 2 tablets in the evening. lamoTRIgine 2021-02- No [id number] 50mg Take 2 [facility] 25 mg 0-20 11-30 tablets by ity of tablet 00:00: 00:00 mouth in [place] 00 :00 the Medical morning Branch and 2 tablets in the evening. lamoTRIgine 2021-02- No [id number] 50mg Take 2 [facility] 25 mg 0-20 11-30 tablets by ity of tablet 00:00: 00:00 mouth in [place] 00 :00 the Medical morning Branch and 2 tablets in the evening. lamoTRIgine 2021-02- No [id number] 50mg Take 2 [facility] 25 mg 0-20 11-30 tablets by ity of tablet 00:00: 00:00 mouth in [place] 00 :00 the Medical morning Branch and 2 tablets in the evening. lamoTRIgine 2021-02- No [id number] 50mg Take 2 [facility] 25 mg 0-20 11-30 tablets by ity of tablet 00:00: 00:00 mouth in [place] 00 :00 the Medical morning Branch and 2 tablets in the evening. clonazePAM 2021-02- No [id number] Take 1 [facility] 1 mg tablet 0-20 11-28 tablet by it y of 00:00: 00:00 mouth [place] 00 :00 twice Medical daily as Branch needed for anxiety. clonazePAM 2021-02- No [id number] Take 1 [facility] 1 mg tablet 0-20 11-28 tablet by it y of 00:00: 00:00 mouth [place] 00 :00 twice Medical daily as Branch needed for anxiety. clonazePAM 2021-02- No [id number] Take 1 [facility] 1 mg tablet 0-20 11-28 tablet by it y of 00:00: 00:00 mouth [place] 00 :00 twice Medical daily as Branch needed for anxiety. clonazePAM 2021-02- No [id number] Take 1 [facility] 1 mg tablet 0-20 11-28 tablet by it y of 00:00: 00:00 mouth [place] 00 :00 twice Medical daily as Branch needed for anxiety. clonazePAM 2021-02- No [id number] Take 1 [facility] 1 mg tablet 0-20 11-28 tablet by it y of 00:00: 00:00 mouth [place] 00 :00 twice Medical daily as Branch needed for anxiety. lamoTRIgine 2021-0 Yes [id number] 50mg Take 2 [facility] 25 mg 8-26 tablets by ity of tablet 00:00: mouth in [place] 00 the Medical morning Branch and 2 tablets in the evening. lamoTRIgine 2021- No [id number] 50mg Take 2 [facility] 25 mg 8-26 10-19 tablets by ity of tablet 00:00: 00:00 mouth in [place] 00 :00 the Medical morning Branch and 2 tablets in the evening. lamoTRIgine 2021- No [id number] 50mg Take 2 [facility] 25 mg 8-26 10-19 tablets by ity of tablet 00:00: 00:00 mouth in [place] 00 :00 the Medical morning Branch and 2 tablets in the evening. clonazePAM 2021-0 Yes [id number] Take no [facility] 1 mg tablet 8-25 more than ity of 00:00: 1 mg twice [place] 00 daily as Medical needed for Branch anxiety lithium 600 2021-0 Yes [id number] 600mg Take 1 [facility] mg capsule 8-25 capsule by ity of 00:00: mouth in [place] 00 the Medical morning Branch and 1 capsule in the evening. clonazePAM 2021-2021- No [id number] Take no [facility] 1 mg tablet 8-25 10-19 more than it y of 00:00: 00:00 1 mg twice [place] 00 :00 daily as Medical needed for Branch anxiety lithium 600 2021-0 2021- No [id number] 600mg Take 1 [facility] mg capsule 8-25 10-19 capsule by it y of 00:00: 00:00 mouth in [place] 00 :00 the Medical morning Branch and 1 capsule in the evening. clonazePAM 2021-0 2021- No [id number] Take no [facility] 1 mg tablet 8-25 10-19 more than it y of 00:00: 00:00 1 mg twice [place] 00 :00 daily as Medical needed for Branch anxiety lithium 600 2021-0 2021- No [id number] 600mg Take 1 [facility] mg capsule 8-06 12- capsule by it y of 00:00: 00:00 mouth in [place] 00 :00 the Medical morning Branch and 1 capsule in the evening. Lamotrigine 2021-0 2- No [id number] 50mg Take 1 [facility] 50 mg 8- 08- tablet by ity of tablet 00:00: 00:00 mouth in [place] 00 :00 the Medical morning Branch and 1 tablet in the evening. Lamotrigine 2021-0 2- No [id number] 50mg Take 1 [facility] 50 mg 8-12 20- tablet by ity of tablet 00:00: 00:00 mouth in [place] 00 :00 the Medical morning Branch and 1 tablet in the evening. DULoxetine 2021-0 Yes [id number] 60mg Take 1 [facility] 60 mg 7-27 capsule by ity of capsule 00:00: mouth in [place] 00 the Medical morning Branch and 1 capsule in the evening. DULoxetine 2021-0 2021- No [id number] 60mg Take 1 [facility] 60 mg 7-27 10-24 capsule by ity of capsule 00:00: 00:00 mouth in [place] 00 :00 the Medical morning Branch and 1 capsule in the evening. DULoxetine 2021-0 2- No [id number] 60mg Take 1 [facility] 60 mg 7-27 10-24 capsule by ity of capsule 00:00: 00:00 mouth in [place] 00 :00 the Medical morning Branch and 1 capsule in the evening. DULoxetine 2021-0 2- No [id number] 60mg Take 1 [facility] 60 mg 7-27 10-24 capsule by ity of capsule 00:00: 00:00 mouth in [place] 00 :00 the Medical morning Branch and 1 capsule in the evening. Lamotrigine 2021-0 2- No [id number] 50mg Take 1 [facility] 50 mg 7-18 08- tablet by ity of tablet 00:00: 00:00 mouth in [place] 00 :00 the [facility] morning [place] and 1 tablet in the evening. lithium 600 2-0 2- No [id number] 600mg Take 1 [facility] mg capsule 7 08-25 capsule by it y of 00:00: 00:00 mouth in [place] 00 :00 the Medical morning Branch and 1 capsule in the evening. traZODone 2021-0 Yes [id number] 50mg Take 1 [facility] n[facility] 50 mg 6-28 tablet by ity of tablet 00:00: mouth at [place] [address] bedtime. Medical May cut Branch tablet in half. DULoxetine 2021-0 Yes [id number] 60mg Take 1 [facility] nivers 60 mg 6-28 capsule by ity of capsule 00:00: mouth 2 [place] [address] (two) Medical times Branch daily. traZODone 2021-0 Yes [id number] 50mg Take 1 [facility] nivers 50 mg 6-28 tablet by ity of tablet 00:00: mouth at [place] [address] bedtime. Medical May cut Branch tablet in half. DULoxetine 2021-0 Yes [id number] 60mg Take 1 [facility] nivers 60 mg 6-28 capsule by ity of capsule 00:00: mouth 2 [place] [address] (two) Medical times Branch daily. traZODone 2021-0 Yes [id number] 50mg Take 1 [facility] nivers 50 mg 6-28 tablet by ity of tablet 00:00: mouth at [place] [address] bedtime. Medical May cut Branch tablet in half. DULoxetine 2021-0 Yes [id number] 60mg Take 1 [facility] nivers 60 mg 6-28 capsule by ity of capsule 00:00: mouth 2 [place] (two) Medical times Branch daily. DULoxetine 2021-0 Yes [id number] 60mg Take 1 [facility] nivers 60 mg 6-28 capsule by ity of capsule 00:00: mouth 2 [place] [address] (two) Medical times Branch daily. traZODone 2021-0 2021- No [id number] 50mg Take 1 [facility] 50 mg 6-28 11-21 tablet by ity of tablet 00:00: 00:00 mouth at [place] 00 :00 bedtime. Medical May cut Branch tablet in half. traZODone 2021-0 2021- No [id number] 50mg Take 1 [facility] 50 mg 6-28 11-21 tablet by ity of tablet 00:00: 00:00 mouth at [place] 00 :00 bedtime. Medical May cut Branch tablet in half. traZODone 2021-0 2021- No [id number] 50mg Take 1 [facility] 50 mg 6-28 11-21 tablet by ity of tablet 00:00: 00:00 mouth at [place] 00 :00 bedtime. Medical May cut Branch tablet in half. traZODone 2021- No [id number] 50mg Take 1 [facility] 50 mg 6-28 11-21 tablet by ity of tablet 00:00: 00:00 mouth at [place] 00 :00 bedtime. Medical May cut Branch tablet in half. traZODone 2021- No [id number] 50mg Take 1 [facility] 50 mg 6-28 11-21 tablet by ity of tablet 00:00: 00:00 mouth at [place] 00 :00 bedtime. Medical May cut Branch tablet in half. clonazePAM 2021- No [id number] Take no [facility] 1 mg tablet -28 08-25 more than it y of 00:00: 00:00 1 mg twice [place] 00 :00 daily as Medical needed for Branch anxiety vitamin Yes [id number] 1000ug Take 1 U nivers B-12 1,000 4-11 tablet by ity of mcg tablet 00:00: mouth [place] 00 daily. Medical Branch cyanocobala 0 Yes [id number] 1000ug 1 mL by [facility] min 1,000 4-11 [facility] ity of mcg/mL 00:00: lar route [place] injection 00 weekly. Medical Branch vitamin 2021-0 Yes [id number] 1000ug Take 1 U nivers B-12 1,000 4-11 tablet by ity of mcg tablet 00:00: mouth [place] 00 daily. Medical Branch cyanocobala 2021-0 Yes [id number] 1000ug 1 mL by [facility] min 1,000 4-11 [facility] ity of mcg/mL 00:00: lar route [place] injection 00 weekly. Medical Branch vitamin 2021-0 Yes [id number] 1000ug Take 1 U nivers B-12 1,000 4-11 tablet by ity of mcg tablet 00:00: mouth [place] 00 daily. Medical Branch cyanocobala 2021-0 Yes [id number] 1000ug 1 mL by [facility] min 1,000 4-11 [facility] ity of mcg/mL 00:00: lar route [place] injection 00 weekly. Medical Branch vitamin 2021-0 Yes [id number] 1000ug Take 1 U nivers B-12 1,000 4-11 tablet by ity of mcg tablet 00:00: mouth [place] 00 daily. Medical Branch cyanocobala 2021-0 Yes [id number] 1000ug 1 mL by [facility] min 1,000 4-11 [facility] ity of mcg/mL 00:00: lar route [place] injection 00 weekly. Medical Branch vitamin 2021-0 Yes [id number] 1000ug Take 1 U nivers B-12 1,000 4-11 tablet by ity of mcg tablet 00:00: mouth [place] 00 daily. Medical Branch cyanocobala 2021-0 Yes [id number] 1000ug 1 mL by [facility] min 1,000 4-11 [facility] ity of mcg/mL 00:00: lar route [place] injection 00 weekly. Medical Branch vitamin 2021-0 Yes [id number] 1000ug Take 1 U nivers B-12 1,000 4-11 tablet by ity of mcg tablet 00:00: mouth [place] 00 daily. Medical Branch cyanocobala 2021-0 Yes [id number] 1000ug 1 mL by [facility] min 1,000 4-11 [facility] ity of mcg/mL 00:00: lar route [place] injection 00 weekly. Medical Branch vitamin 2021-0 Yes [id number] 1000ug Take 1 U nivers B-12 1,000 4-11 tablet by ity of mcg tablet 00:00: mouth [place] 00 daily. Medical Branch cyanocobala 2021-0 Yes [id number] 1000ug 1 mL by [facility] min 1,000 4-11 [facility] ity of mcg/mL 00:00: lar route [place] injection 00 weekly. Medical Branch vitamin 2021-0 Yes [id number] 1000ug Take 1 U nivers B-12 1,000 4-11 tablet by ity of mcg tablet 00:00: mouth [place] 00 daily. Medical Branch cyanocobala 2021-0 Yes [id number] 1000ug 1 mL by [facility] min 1,000 4-11 [facility] ity of mcg/mL 00:00: lar route [place] injection 00 weekly. Medical Branch vitamin 2021-0 Yes [id number] 1000ug Take 1 U nivers B-12 1,000 4-11 tablet by ity of mcg tablet 00:00: mouth [place] 00 daily. Medical Branch cyanocobala 2021-0 Yes [id number] 1000ug 1 mL by [facility] min 1,000 4-11 [facility] ity of mcg/mL 00:00: lar route [place] injection 00 weekly. Medical Branch vitamin 2021-0 Yes [id number] 1000ug Take 1 U nivers B-12 1,000 4-11 tablet by ity of mcg tablet 00:00: mouth [place] 00 daily. Medical Branch cyanocobala 2021-0 Yes [id number] 1000ug 1 mL by [facility] min 1,000 4-11 [facility] ity of mcg/mL 00:00: lar route [place] injection 00 weekly. Medical Branch vitamin 2021-0 Yes [id number] 1000ug Take 1 U nivers B-12 1,000 4-11 tablet by ity of mcg tablet 00:00: mouth [place] 00 daily. Medical Branch cyanocobala 2021-0 Yes [id number] 1000ug 1 mL by [facility] min 1,000 4-11 [facility] ity of mcg/mL 00:00: lar route [place] injection 00 weekly. Medical Branch vitamin 2021-0 Yes [id number] 1000ug Take 1 U nivers B-12 1,000 4-11 tablet by ity of mcg tablet 00:00: mouth [place] 00 daily. Medical Branch cyanocobala 2021-0 Yes [id number] 1000ug 1 mL by [facility] min 1,000 4-11 [facility] ity of mcg/mL 00:00: lar route [place] injection 00 weekly. Medical Branch vitamin 2021-0 Yes [id number] 1000ug Take 1 U nivers B-12 1,000 4-11 tablet by ity of mcg tablet 00:00: mouth [place] 00 daily. Medical Branch cyanocobala 2021-0 Yes [id number] 1000ug 1 mL by [facility] min 1,000 4-11 [facility] ity of mcg/mL 00:00: lar route [place] injection 00 weekly. Medical Branch vitamin 2021-0 Yes [id number] 1000ug Take 1 U nivers B-12 1,000 4-11 tablet by ity of mcg tablet 00:00: mouth [place] 00 daily. Medical Branch cyanocobala 2021-0 Yes [id number] 1000ug 1 mL by [facility] min 1,000 4-11 [facility] of mcg/mL 00:00: lar route [place] injection 00 weekly. [facility] vitamin 2021-0 Yes [id number] 1000ug Take 1 U nivers B-12 1,000 4-11 tablet by ity of mcg tablet 00:00: mouth [place] 00 daily. [facility] cyanocobala 2021-0 Yes [id number] 1000ug 1 mL by [facility] min 1,000 4-11 [facility] of mcg/mL 00:00: lar route [place] injection 00 weekly. [facility] vitamin 2021-0 Yes [id number] 1000ug Take 1 U nivers B-12 1,000 4-11 tablet by ity of mcg tablet 00:00: mouth [place] 00 daily. [facility] cyanocobala 2021-0 Yes [id number] 1000ug 1 mL by [facility] min 1,000 4-11 [facility] of mcg/mL 00:00: lar route [place] injection 00 weekly. [facility] vitamin 2021-0 Yes [id number] 1000ug Take 1 U nivers B-12 1,000 4-11 tablet by ity of mcg tablet 00:00: mouth [place] 00 daily. [facility] cyanocobala 2021-0 Yes [id number] 1000ug 1 mL by [facility] min 1,000 4-11 [facility] of mcg/mL 00:00: lar route [place] injection 00 weekly. [facility] vitamin 2021-0 Yes [id number] 1000ug Take 1 [facility] nivers B-12 1,000 4-11 tablet by ity of mcg tablet 00:00: mouth [place] 00 daily. [facility] cyanocobala 2021-0 Yes [id number] 1000ug 1 mL by [facility] min 1,000 4-11 [facility]y of mcg/mL 00:00: lar route [place] injection 00 weekly. [facility] vitamin 2021-0 Yes [id number] 1000ug Take 1 [facility] nivers B-12 1,000 4-11 tablet by ity of mcg tablet 00:00: mouth [place] 00 daily. [facility] cyanocobala 2021-0 Yes [id number] 1000ug 1 mL by [facility] min 1,000 4-11 [facility] of mcg/mL 00:00: lar route [place] injection 00 weekly. [facility] vitamin 2021-0 Yes [id number] 1000ug Take 1 [facility] nivers B-12 1,000 4-11 tablet by ity of mcg tablet 00:00: mouth [place] 00 daily. [facility] cyanocobala 2021-0 Yes [id number] 1000ug 1 mL by [facility] min 1,000 4-11 [facility] of mcg/mL 00:00: lar route [place] injection 00 weekly. [facility] vitamin 2021-0 Yes [id number] 1000ug Take 1 [facility] nivers B-12 1,000 4-11 tablet by [facility]y of mcg tablet 00:00: mouth [place] 00 daily. [facility] cyanocobala 2021-0 Yes [id number] 1000ug 1 mL by [facility] min 1,000 4-11 [facility] of mcg/mL 00:00: lar route [place] injection 00 weekly. [facility] vitamin 2021-0 Yes [id number] 1000ug Take 1 [facility] nivers B-12 1,000 4-11 tablet by [facility]y of mcg tablet 00:00: mouth [place] 00 daily. [facility] cyanocobala 2021-0 Yes [id number] 1000ug 1 mL by [facility] min 1,000 4-11 [facility] of mcg/mL 00:00: lar route [place] injection 00 weekly. [facility] vitamin 2021-0 Yes [id number] 1000ug Take 1 [facility] nivers B-12 1,000 4-11 tablet by [facility]y of mcg tablet 00:00: mouth [place] 00 daily. [facility] cyanocobala 2021-0 Yes [id number] 1000ug 1 mL by [facility] min 1,000 4-11 [facility] of mcg/mL 00:00: lar route [place] injection 00 weekly. [facility] vitamin 2021-0 Yes [id number] 1000ug Take 1 [facility] nivers B-12 1,000 4-11 tablet by [facility]y of mcg tablet 00:00: mouth [place] 00 daily. [facility] cyanocobala 2021-0 Yes [id number] 1000ug 1 mL by [facility] min 1,000 4-11 [facility] of mcg/mL 00:00: lar route [place] injection 00 weekly. [facility] vitamin 2021-0 Yes [id number] 1000ug Take 1 [facility] nivers B-12 1,000 4-11 tablet by [facility]y of mcg tablet 00:00: mouth [place] 00 daily. [facility] cyanocobala 2021-0 Yes [id number] 1000ug 1 mL by [facility] min 1,000 4-11 [facility] of mcg/mL 00:00: lar route [place] injection 00 weekly. [facility] vitamin 2021-0 Yes [id number] 1000ug Take 1 [facility] nivers B-12 1,000 4-11 tablet by [facility] of mcg tablet 00:00: mouth [place] 00 daily. [facility] cyanocobala 2021-0 Yes [id number] 1000ug 1 mL by [facility] min 1,000 4-11 [facility] of mcg/mL 00:00: lar route [place] injection 00 weekly. [facility] vitamin 2021-0 Yes [id number] 1000ug Take 1 [facility] nivers B-12 1,000 4-11 tablet by ity of mcg tablet 00:00: mouth [place] 00 daily. [facility] cyanocobala 2021-0 Yes [id number] 1000ug 1 mL by [facility] min 1,000 4-11 [facility] of mcg/mL 00:00: lar route [place] injection 00 weekly. [facility] vitamin 2021-0 Yes [id number] 1000ug Take 1 [facility] nivers B-12 1,000 4-11 tablet by ity of mcg tablet 00:00: mouth [place] 00 daily. [facility] cyanocobala 2021-0 Yes [id number] 1000ug 1 mL by [facility] min 1,000 4-11 [facility] of mcg/mL 00:00: lar route [place] injection 00 weekly. [facility] vitamin 2021-0 Yes [id number] 1000ug Take 1 [facility] nivers B-12 1,000 4-11 tablet by [facility]y of mcg tablet 00:00: mouth [place] 00 daily. [facility] cyanocobala 2021-0 Yes [id number] 1000ug 1 mL by [facility] min 1,000 4-11 [facility] of mcg/mL 00:00: lar route [place] injection 00 weekly. [facility] vitamin 2021-0 Yes [id number] 1000ug Take 1 [facility] nivers B-12 1,000 4-11 tablet by [facility]y of mcg tablet 00:00: mouth [place] 00 daily. [facility] cyanocobala 2021-0 Yes [id number] 1000ug 1 mL by [facility] min 1,000 4-11 [facility]y of mcg/mL 00:00: lar route [place] injection 00 weekly. [facility] vitamin 2021-0 Yes [id number] 1000ug Take 1 U nivers B-12 1,000 4-11 tablet by ity of mcg tablet 00:00: mouth [place] 00 daily. [facility] cyanocobala 2021-0 Yes [id number] 1000ug 1 mL by [facility] min 1,000 4-11 [facility] of mcg/mL 00:00: lar route [place] injection 00 weekly. [facility] vitamin 2021-0 Yes [id number] 1000ug Take 1 [facility] nivers B-12 1,000 4-11 tablet by [facility]y of mcg tablet 00:00: mouth [place] 00 daily. [facility] cyanocobala 2021-0 Yes [id number] 1000ug 1 mL by [facility] min 1,000 4-11 [facility] of mcg/mL 00:00: lar route [place] injection 00 weekly. [facility] vitamin 2021-0 Yes [id number] 1000ug Take 1 [facility] nivers B-12 1,000 4-11 tablet by [facility]y of mcg tablet 00:00: mouth [place] 00 daily. [facility] cyanocobala 2021-0 Yes [id number] 1000ug 1 mL by [facility] min 1,000 4-11 [facility] of mcg/mL 00:00: lar route [place] injection 00 weekly. [facility] vitamin 2021-0 Yes [id number] 1000ug Take 1 [facility] nivers B-12 1,000 4-11 tablet by ity of mcg tablet 00:00: mouth [place] 00 daily. [facility] cyanocobala 2021-0 Yes [id number] 1000ug 1 mL by [facility] min 1,000 4-11 [facility] of mcg/mL 00:00: lar route [place] injection 00 weekly. [facility] vitamin 2021-0 Yes [id number] 1000ug Take 1 [facility] nivers B-12 1,000 4-11 tablet by ity of mcg tablet 00:00: mouth [place] 00 daily. [facility] cyanocobala 2021-0 Yes [id number] 1000ug 1 mL by [facility] min 1,000 4-11 [facility]y of mcg/mL 00:00: lar route [place] injection 00 weekly. [facility] vitamin 2021-0 Yes [id number] 1000ug Take 1 U nivers B-12 1,000 4-11 tablet by ity of mcg tablet 00:00: mouth [place] 00 daily. [facility] cyanocobala 2021-0 Yes [id number] 1000ug 1 mL by [facility] min 1,000 4-11 Intr[facility]y of mcg/mL 00:00: lar route [place] injection 00 weekly. [facility] vitamin 2021-0 Yes [id number] 1000ug Take 1 U nivers B-12 1,000 4-11 tablet by ity of mcg tablet 00:00: mouth [place] 00 daily. [facility] cyanocobala 0 Yes [id number] 1000ug 1 mL by [facility] min 1,000 4-11 [facility] of mcg/mL 00:00: lar route [place] injection 00 weekly. [facility] vitamin 2021-0 Yes [id number] 1000ug Take 1 [facility] nivers B-12 1,000 4-11 tablet by [facility]y of mcg tablet 00:00: mouth [place] 00 daily. [facility] cyanocobala 0 Yes [id number] 1000ug 1 mL by [facility] min 1,000 4-11 [facility] of mcg/mL 00:00: lar route [place] injection 00 weekly. [facility] vitamin 0 Yes [id number] 1000ug Take 1 [facility] nivers B-12 1,000 4-11 tablet by ity of mcg tablet 00:00: mouth [place] 00 daily. [facility] cyanocobala Yes [id number] 1000ug 1 mL by [facility] min 1,000 4-11 [facility] of mcg/mL 00:00: lar route [place] injection 00 weekly. [facility] vitamin 2021-0 Yes [id number] 1000ug Take 1 [facility] nivers B-12 1,000 4-11 tablet by [facility]y of mcg tablet 00:00: mouth [place] 00 daily. [facility] cyanocobala 0 Yes [id number] 1000ug 1 mL by [facility] min 1,000 4-11 [facility] of mcg/mL 00:00: lar route [place] injection 00 weekly. [facility] vitamin 2021-0 Yes [id number] 1000ug Take 1 [facility] nivers B-12 1,000 4-11 tablet by ity of mcg tablet 00:00: mouth [place] 00 daily. [facility] cyanocobala 0 Yes [id number] 1000ug 1 mL by [facility] min 1,000 4-11 [facility]y of mcg/mL 00:00: lar route [place] injection 00 weekly. [facility] losartan 2021-0 Yes 20mg Take 20 mg [facility] vers potassium 4-05 by mouth. ity o f (LOSARTAN 09:24: [place] ORAL) 36 [facility] FUROSEMIDE 2022-0 Yes 40mg Take 40 mg U nivers ORAL 4-05 by mouth ity of 09:24: daily. [address] losartan 2021-0 Yes 20mg Take 20 mg [facility] potassium 4-05 by mouth. ity o f (LOSARTAN 09:24: [place] ORAL) [address] [place] [address] FUROSEMIDE 0 Yes 40mg Take 40 mg U nivers ORAL 4-05 by mouth ity of 09:24: daily. [address] losartan 2021-0 Yes 20mg Take 20 mg [facility] potassium 4-05 by mouth. ity o f (LOSARTAN 09:24: [place] ORAL) [address] [place] [address] FUROSEMIDE 0 Yes 40mg Take 40 mg U nivers ORAL 4-05 by mouth ity of 09:24: daily. [address] losartan 0 Yes 20mg Take 20 mg [facility] vers potassium 4-05 by mouth. ity o f (LOSARTAN 09:24: [place] ORAL) [address] [place] [address] FUROSEMIDE 0 Yes 40mg Take 40 mg U nivers ORAL 4-05 by mouth ity of 09:24: daily. [address] losartan 2021-0 Yes 20mg Take 20 mg [facility] potassium 4-05 by mouth. ity o f (LOSARTAN 09:24: [place] ORAL) [address] [place] [address] FUROSEMIDE 0 Yes 40mg Take 40 mg U nivers ORAL 4-05 by mouth ity of 09:24: daily. [address] losartan 2021-0 Yes 20mg Take 20 mg [facility] potassium 4-05 by mouth. ity o f (LOSARTAN 09:24: [place] ORAL) [address] [place] [address] FUROSEMIDE 2021-0 Yes 40mg Take 40 mg U nivers ORAL 4-05 by mouth ity of 09:24: daily. [address] losartan 2021-0 Yes 20mg Take 20 mg [facility] potassium 4-05 by mouth. ity o f (LOSARTAN 09:24: [place] ORAL) [address] [place] [address] FUROSEMIDE 2021-0 Yes 40mg Take 40 mg U nivers ORAL 4-05 by mouth ity of 09:24: daily. [address] losartan 2021-0 Yes 20mg Take 20 mg [facility] potassium 4-05 by mouth. ity o f (LOSARTAN 09:24: [place] ORAL) [address] [place] [address] FUROSEMIDE 2021-0 Yes 40mg Take 40 mg U nivers ORAL 4-05 by mouth ity of 09:24: daily. [address] losartan 2021-0 Yes 20mg Take 20 mg [facility] potassium 4-05 by mouth. ity o f (LOSARTAN 09:24: [place] ORAL) [address] [place] [address] FUROSEMIDE 2021-0 Yes 40mg Take 40 mg U nivers ORAL 4-05 by mouth ity of 09:24: daily. [address] losartan 2021-0 Yes 20mg Take 20 mg [facility] potassium 4-05 by mouth. ity o f (LOSARTAN 09:24: [place] ORAL) [address] [place] [address] FUROSEMIDE 2021-0 Yes 40mg Take 40 mg U nivers ORAL 4-05 by mouth ity of 09:24: daily. [address] losartan 2021-0 Yes 20mg Take 20 mg [facility] potassium 4-05 by mouth. ity o f (LOSARTAN 09:24: [place] ORAL) [address] [place] [address] FUROSEMIDE 2021-0 Yes 40mg Take 40 mg U nivers ORAL 4-05 by mouth ity of 09:24: daily. [address] losartan 2021-0 Yes 20mg Take 20 mg [facility] potassium 4-05 by mouth. ity o f (LOSARTAN 09:24: [place] ORAL) [address] [place] [address] FUROSEMIDE 2021-0 Yes 40mg Take 40 mg U nivers ORAL 4-05 by mouth ity of 09:24: daily. [address] losartan 2021-0 Yes 20mg Take 20 mg [facility] vers potassium 4-05 by mouth. ity o f (LOSARTAN 09:24: [place] ORAL) [address] [place] [address] FUROSEMIDE 2021-0 Yes 40mg Take 40 mg U nivers ORAL 4-05 by mouth ity of 09:24: daily. [address] losartan 2021-0 Yes 20mg Take 20 mg [facility] vers potassium 4-05 by mouth. ity o f (LOSARTAN 09:24: [place] ORAL) [address] [place] [address] FUROSEMIDE 2021-0 Yes 40mg Take 40 mg U nivers ORAL 4-05 by mouth ity of 09:24: daily. [address] losartan 2021-0 Yes 20mg Take 20 mg [facility] vers potassium 4-05 by mouth. ity o f (LOSARTAN 09:24: [place] ORAL) [address] [place] [address] FUROSEMIDE 2021-0 Yes 40mg Take 40 mg U nivers ORAL 4-05 by mouth ity of 09:24: daily. [address] losartan 2021-0 Yes 20mg Take 20 mg [facility] potassium 4-05 by mouth. ity o f (LOSARTAN 09:24: [place] ORAL) [address] [place] [address] FUROSEMIDE 0 Yes 40mg Take 40 mg U nivers ORAL 4-05 by mouth ity of 09:24: daily. [address] losartan 2021-0 Yes 20mg Take 20 mg [facility] potassium 4-05 by mouth. ity o f (LOSARTAN 09:24: [place] ORAL) [address] [place] [address] FUROSEMIDE 0 Yes 40mg Take 40 mg U nivers ORAL 4-05 by mouth ity of 09:24: daily. [address] losartan 2021-0 Yes 20mg Take 20 mg [facility] vers potassium 4-05 by mouth. ity o f (LOSARTAN 09:24: [place] ORAL) [address] [place] [address] FUROSEMIDE 0 Yes 40mg Take 40 mg U nivers ORAL 4-05 by mouth ity of 09:24: daily. [address] losartan 2021-0 Yes 20mg Take 20 mg [facility] vers potassium 4-05 by mouth. ity o f (LOSARTAN 09:24: [place] ORAL) [address] [place] [address] FUROSEMIDE 0 Yes 40mg Take 40 mg U nivers ORAL 4-05 by mouth ity of 09:24: daily. [address] losartan 2021-0 Yes 20mg Take 20 mg [facility] vers potassium 4-05 by mouth. ity o f (LOSARTAN 09:24: [place] ORAL) [address] [place] [address] FUROSEMIDE 0 Yes 40mg Take 40 mg U nivers ORAL 4-05 by mouth ity of 09:24: daily. [address] losartan 2021-0 Yes 20mg Take 20 mg [facility] vers potassium 4-05 by mouth. ity o f (LOSARTAN 09:24: [place] ORAL) [address] [place] [address] FUROSEMIDE 0 Yes 40mg Take 40 mg U nivers ORAL 4-05 by mouth ity of 09:24: daily. [address] losartan 2021-0 Yes 20mg Take 20 mg [facility] vers potassium 4-05 by mouth. ity o f (LOSARTAN 09:24: [place] ORAL) [address] [place] [address] FUROSEMIDE 2021-0 Yes 40mg Take 40 mg U nivers ORAL 4-05 by mouth ity of 09:24: daily. [address] losartan 2021-0 Yes 20mg Take 20 mg [facility] vers potassium 4-05 by mouth. ity o f (LOSARTAN 09:24: [place] ORAL) [address] [place] [address] FUROSEMIDE 2021-0 Yes 40mg Take 40 mg U nivers ORAL 4-05 by mouth ity of 09:24: daily. [address] losartan 2021-0 Yes 20mg Take 20 mg [facility] vers potassium 4-05 by mouth. ity o f (LOSARTAN 09:24: [place] ORAL) [address] [place] [address] FUROSEMIDE 2021-0 Yes 40mg Take 40 mg U nivers ORAL 4-05 by mouth ity of 09:24: daily. [address] losartan 2021-0 Yes 20mg Take 20 mg [facility] vers potassium 4-05 by mouth. ity o f (LOSARTAN 09:24: [place] ORAL) [address] [place] [address] FUROSEMIDE 0 Yes 40mg Take 40 mg U nivers ORAL 4-05 by mouth ity of 09:24: daily. [address] losartan 2021-0 Yes 20mg Take 20 mg [facility] vers potassium 4-05 by mouth. ity o f (LOSARTAN 09:24: [place] ORAL) [address] [place] [address] FUROSEMIDE 2021-0 Yes 40mg Take 40 mg U nivers ORAL 4-05 by mouth ity of 09:24: daily. [address] losartan 2021-0 Yes 20mg Take 20 mg [facility] vers potassium 4-05 by mouth. ity o f (LOSARTAN 09:24: [place] ORAL) [address] [place] [address] FUROSEMIDE 2021-0 Yes 40mg Take 40 mg U nivers ORAL 4-05 by mouth ity of 09:24: daily. [address] losartan 2021-0 Yes 20mg Take 20 mg [facility] vers potassium 4-05 by mouth. ity o f (LOSARTAN 09:24: [place] ORAL) [address] [place] [address] FUROSEMIDE 2021-0 Yes 40mg Take 40 mg U nivers ORAL 4-05 by mouth ity of 09:24: daily. [address] losartan 2021-0 Yes 20mg Take 20 mg [facility] vers potassium 4-05 by mouth. ity o f (LOSARTAN 09:24: [place] ORAL) [address] [place] [address] FUROSEMIDE 2021-0 Yes 40mg Take 40 mg U nivers ORAL 4-05 by mouth ity of 09:24: daily. [address] losartan 2021-0 Yes 20mg Take 20 mg [facility] vers potassium 4-05 by mouth. ity o f (LOSARTAN 09:24: [place] ORAL) 36 [facility] losartan 2022-0 Yes 20mg Take 20 mg [facility] vers [...] [place] ORAL) 36 [facility] magnesium Yes [id number] 400mg Take 2 [facility] gluconate 4-05 tablets by ity of 200 mg 00:00: mouth 2 [place] tablet 00 (two) Medical times Branch daily. gabapentin Yes [id number] 300mg Take 1 [facility] 300 mg 4-05 capsule by ity of capsule 00:00: mouth 3 [place] 00 (three) Medical times Branch daily. rizatriptan Yes [id number] 5mg Take 1 [facility] 5 mg 4-05 tablet by ity of disintegrat 00:00: mouth as [place] ing tablet 00 needed for Med ical Migraine Branch (Take 5mg at the beginning of the headache can repeat 2h after if headaches persists). May repeat in 2 hours if needed magnesium 2022-0 Yes [id number] 400mg Take 2 [facility] gluconate 4-05 tablets by ity of 200 mg 00:00: mouth 2 [place] tablet 00 (two) Medical times Branch daily. gabapentin 2022-0 Yes [id number] 300mg Take 1 [facility] 300 mg 4-05 capsule by ity of capsule 00:00: mouth 3 [place] (three) Medical times Branch daily. rizatriptan 2022-0 Yes [id number] 5mg Take 1 [facility] 5 mg 4-05 tablet by ity of disintegrat 00:00: mouth as [place] ing tablet 00 needed for Med ical Migraine Branch (Take 5mg at the beginning of the headache can repeat 2h after if headaches persists). May repeat in 2 hours if needed magnesium 2022-0 Yes [id number] 400mg Take 2 [facility] gluconate 4-05 tablets by ity of 200 mg 00:00: mouth 2 [place] tablet 00 (two) Medical times Branch daily. gabapentin 2022-0 Yes [id number] 300mg Take 1 [facility] 300 mg 4-05 capsule by ity of capsule 00:00: mouth 3 (three) Medical times Branch daily. rizatriptan 2022-0 Yes [id number] 5mg Take 1 [facility] 5 mg 4-05 tablet by ity of disintegrat 00:00: mouth as [place] ing tablet 00 needed for Med ical Migraine Branch (Take 5mg at the beginning of the headache can repeat 2h after if headaches persists). May repeat in 2 hours if needed magnesium 2022-0 Yes [id number] 400mg Take 2 [facility] gluconate 4-05 tablets by ity of 200 mg 00:00: mouth 2 [place] tablet 00 (two) Medical times Branch daily. gabapentin 2022-0 Yes [id number] 300mg Take 1 [facility] 300 mg 4-05 capsule by ity of capsule 00:00: mouth 3 [place] 00 (three) Medical times Branch daily. rizatriptan 2022-0 Yes [id number] 5mg Take 1 [facility] 5 mg 4-05 tablet by ity of disintegrat 00:00: mouth as [place] ing tablet 00 needed for Med ical Migraine Branch (Take 5mg at the beginning of the headache can repeat 2h after if headaches persists). May repeat in 2 hours if needed magnesium 2022-0 Yes [id number] 400mg Take 2 [facility] gluconate 4-05 tablets by ity of 200 mg 00:00: mouth 2 [place] tablet 00 (two) Medical times Branch daily. gabapentin 2022-0 Yes [id number] 300mg Take 1 [facility] 300 mg 4-05 capsule by ity of capsule 00:00: mouth 3 [place] 00 (three) Medical times Branch daily. rizatriptan 2022-0 Yes [id number] 5mg Take 1 [facility] 5 mg 4-05 tablet by ity of disintegrat 00:00: mouth as [place] ing tablet 00 needed for Med ical Migraine Branch (Take 5mg at the beginning of the headache can repeat 2h after if headaches persists). May repeat in 2 hours if needed magnesium 2022-0 Yes [id number] 400mg Take 2 [facility] gluconate 4-05 tablets by ity of 200 mg 00:00: mouth 2 [place] tablet 00 (two) Medical times Branch daily. gabapentin 2022-0 Yes [id number] 300mg Take 1 [facility] 300 mg 4-05 capsule by ity of capsule 00:00: mouth 3 (three) Medical times Branch daily. rizatriptan 2022-0 Yes [id number] 5mg Take 1 [facility] 5 mg 4-05 tablet by ity of disintegrat 00:00: mouth as [place] ing tablet 00 needed for Med ical Migraine Branch (Take 5mg at the beginning of the headache can repeat 2h after if headaches persists). May repeat in 2 hours if needed magnesium 2022-0 Yes [id number] 400mg Take 2 [facility] gluconate 4-05 tablets by ity of 200 mg 00:00: mouth 2 [place] tablet 00 (two) Medical times Branch daily. gabapentin 2022-0 Yes [id number] 300mg Take 1 [facility] 300 mg 4-05 capsule by ity of capsule 00:00: mouth 3 [place] 00 (three) Medical times Branch daily. rizatriptan 2022-0 Yes [id number] 5mg Take 1 [facility] 5 mg 4-05 tablet by ity of disintegrat 00:00: mouth as [place] ing tablet 00 needed for Med ical Migraine Branch (Take 5mg at the beginning of the headache can repeat 2h after if headaches persists). May repeat in 2 hours if needed magnesium 2022-0 Yes [id number] 400mg Take 2 [facility] gluconate 4-05 tablets by ity of 200 mg 00:00: mouth 2 [place] tablet 00 (two) Medical times Branch daily. gabapentin 2022-0 Yes [id number] 300mg Take 1 [facility] 300 mg 4-05 capsule by ity of capsule 00:00: mouth 3 [place] 00 (three) Medical times Branch daily. rizatriptan 2022-0 Yes [id number] 5mg Take 1 [facility] 5 mg 4-05 tablet by ity of disintegrat 00:00: mouth as [place] ing tablet 00 needed for Med ical Migraine Branch (Take 5mg at the beginning of the headache can repeat 2h after if headaches persists). May repeat in 2 hours if needed magnesium 2022-0 Yes [id number] 400mg Take 2 [facility] gluconate 4-05 tablets by ity of 200 mg 00:00: mouth 2 [place] tablet 00 (two) Medical times Branch daily. gabapentin 2022-0 Yes [id number] 300mg Take 1 [facility] 300 mg 4-05 capsule by ity of capsule 00:00: mouth 3 [place] 00 (three) Medical times Branch daily. rizatriptan 2022-0 Yes [id number] 5mg Take 1 [facility] 5 mg 4-05 tablet by ity of disintegrat 00:00: mouth as [place] ing tablet 00 needed for Med ical Migraine Branch (Take 5mg at the beginning of the headache can repeat 2h after if headaches persists). May repeat in 2 hours if needed magnesium 2022-0 Yes [id number] 400mg Take 2 [facility] gluconate 4-05 tablets by ity of 200 mg 00:00: mouth 2 [place] tablet 00 (two) Medical times Branch daily. gabapentin 2022-0 Yes [id number] 300mg Take 1 [facility] 300 mg 4-05 capsule by ity of capsule 00:00: mouth 3 [place] 00 (three) Medical times Branch daily. rizatriptan 2022-0 Yes [id number] 5mg Take 1 [facility] 5 mg 4-05 tablet by ity of disintegrat 00:00: mouth as [place] ing tablet 00 needed for Med ical Migraine Branch (Take 5mg at the beginning of the headache can repeat 2h after if headaches persists). May repeat in 2 hours if needed magnesium 2022-0 Yes [id number] 400mg Take 2 [facility] gluconate 4-05 tablets by ity of 200 mg 00:00: mouth 2 [place] tablet 00 (two) Medical times Branch daily. gabapentin 2022-0 Yes [id number] 300mg Take 1 [facility] 300 mg 4-05 capsule by ity of capsule 00:00: mouth 3 [place] 00 (three) Medical times Branch daily. rizatriptan 2022-0 Yes [id number] 5mg Take 1 [facility] 5 mg 4-05 tablet by ity of disintegrat 00:00: mouth as [place] ing tablet 00 needed for Med ical Migraine Branch (Take 5mg at the beginning of the headache can repeat 2h after if headaches persists). May repeat in 2 hours if needed magnesium 2022-0 Yes [id number] 400mg Take 2 [facility] gluconate 4-05 tablets by ity of 200 mg 00:00: mouth 2 [place] tablet 00 (two) Medical times Branch daily. gabapentin 2022-0 Yes [id number] 300mg Take 1 [facility] 300 mg 4-05 capsule by ity of capsule 00:00: mouth 3 [place] 00 (three) Medical times Branch daily. rizatriptan 2022-0 Yes [id number] 5mg Take 1 [facility] 5 mg 4-05 tablet by ity of disintegrat 00:00: mouth as [place] ing tablet 00 needed for Med ical Migraine Branch (Take 5mg at the beginning of the headache can repeat 2h after if headaches persists). May repeat in 2 hours if needed magnesium 2022-0 Yes [id number] 400mg Take 2 [facility] gluconate 4-05 tablets by ity of 200 mg 00:00: mouth 2 [place] tablet 00 (two) Medical times Branch daily. gabapentin 2022-0 Yes [id number] 300mg Take 1 [facility] 300 mg 4-05 capsule by ity of capsule 00:00: mouth 3 [place] 00 (three) Medical times Branch daily. rizatriptan 2022-0 Yes [id number] 5mg Take 1 [facility] 5 mg 4-05 tablet by ity of disintegrat 00:00: mouth as [place] ing tablet 00 needed for Med ical Migraine Branch (Take 5mg at the beginning of the headache can repeat 2h after if headaches persists). May repeat in 2 hours if needed magnesium 2022-0 Yes [id number] 400mg Take 2 [facility] gluconate 4-05 tablets by ity of 200 mg 00:00: mouth 2 [place] tablet 00 (two) Medical times Branch daily. gabapentin 2022-0 Yes [id number] 300mg Take 1 [facility] 300 mg 4-05 capsule by ity of capsule 00:00: mouth 3 [place] 00 (three) Medical times Branch daily. rizatriptan 2022-0 Yes [id number] 5mg Take 1 [facility] 5 mg 4-05 tablet by ity of disintegrat 00:00: mouth as [place] ing tablet 00 needed for Med ical Migraine Branch (Take 5mg at the beginning of the headache can repeat 2h after if headaches persists). May repeat in 2 hours if needed magnesium 2022-0 Yes [id number] 400mg Take 2 [facility] gluconate 4-05 tablets by ity of 200 mg 00:00: mouth 2 [place] tablet 00 (two) Medical times Branch daily. gabapentin 2022-0 Yes [id number] 300mg Take 1 [facility] 300 mg 4-05 capsule by ity of capsule 00:00: mouth 3 [place] (three) Medical times Branch daily. rizatriptan 2022-0 Yes [id number] 5mg Take 1 [facility]-05 tablet [facility] 00:00: mouth as [place] ing tablet 00 needed for Med ical Migraine [facility] (Take 5mg at the beginning of the headache can repeat 2h after if headaches persists). May repeat in 2 hours if needed magnesium 2022-0 Yes [id number] 400mg Take 2 [facility] gluconate 4-05 tablets by [facility] 200 mg 00:00: mouth 2 [place] tablet 00 (two) Medical times Branch daily. gabapentin 2022-0 Yes [id number] 300mg Take 1 [facility] 300 mg 4-05 capsule by [facility] capsule 00:00: mouth 3 [place] 00 (three) Medical times Branch daily. rizatriptan 2022-0 Yes [id number] 5mg Take 1 [facility] 5 mg 4-05 tablet by [facility]at 00:00: mouth as [place] ing tablet 00 needed for Med ical Migraine [facility] (Take 5mg at the beginning of the headache can repeat 2h after if headaches persists). May repeat in 2 hours if needed magnesium 2022-0 Yes [id number] 400mg Take 2 [facility] gluconate 4-05 tablets by [facility] 200 mg 00:00: mouth 2 [place] tablet 00 (two) Medical times Branch daily. gabapentin 2022-0 Yes [id number] 300mg Take 1 [facility] 300 mg 4-05 capsule by [facility] capsule 00:00: mouth 3 [place] (three) Medical times Branch daily. rizatriptan 2022-0 Yes [id number] 5mg Take 1 [facility] 5 mg 4-05 tablet by [facility]at 00:00: mouth as [place] ing tablet 00 needed for Med ical Migraine [facility] (Take 5mg at the beginning of the headache can repeat 2h after if headaches persists). May repeat in 2 hours if needed magnesium 2022-0 Yes [id number] 400mg Take 2 [facility] gluconate 4-05 tablets by [facility] 200 mg 00:00: mouth 2 [place] tablet 00 (two) Medical times Branch daily. gabapentin 2022-0 Yes [id number] 300mg Take 1 [facility] 300 mg 4-05 capsule by [facility] capsule 00:00: mouth 3 [place] (three) Medical times Branch daily. rizatriptan 2022-0 Yes [id number] 5mg Take 1 [facility] 5 mg 4-05 tablet by [facility]at 00:00: mouth as [place] ing tablet 00 needed for Med ical Migraine [facility] (Take 5mg at the beginning of the headache can repeat 2h after if headaches persists). May repeat in 2 hours if needed magnesium 2022-0 Yes [id number] 400mg Take 2 [facility] gluconate 4-05 tablets by [facility] 200 mg 00:00: mouth 2 [place] tablet 00 (two) Medical times Branch daily. gabapentin 2022-0 Yes [id number] 300mg Take 1 [facility] 300 mg 4-05 capsule by [facility] capsule 00:00: mouth 3 [place] (three) Medical times Branch daily. rizatriptan 2022-0 Yes [id number] 5mg Take 1 [facility] 5 mg 4-05 tablet by [facility]at 00:00: mouth as [place] ing tablet 00 needed for Med ical Migraine [facility] (Take 5mg at the beginning of the headache can repeat 2h after if headaches persists). May repeat in 2 hours if needed magnesium 2022-0 Yes [id number] 400mg Take 2 [facility] gluconate 4-05 tablets by [facility] 200 mg 00:00: mouth 2 [place] tablet 00 (two) Medical times Branch daily. gabapentin 2022-0 Yes [id number] 300mg Take 1 [facility] 300 mg 4-05 capsule by [facility] capsule 00:00: mouth 3 [place] 00 (three) Medical times Branch daily. rizatriptan 2022-0 Yes [id number] 5mg Take 1 [facility] 5 mg 4-05 tablet by [facility]at 00:00: mouth as [place] ing tablet 00 needed for Med ical Migraine [facility] (Take 5mg at the beginning of the headache can repeat 2h after if headaches persists). May repeat in 2 hours if needed magnesium 2022-0 Yes [id number] 400mg Take 2 [facility] gluconate 4-05 tablets by [facility] 200 mg 00:00: mouth 2 [place] tablet 00 (two) Medical times Branch daily. gabapentin 2022-0 Yes [id number] 300mg Take 1 [facility] 300 mg 4-05 capsule by [facility] capsule 00:00: mouth 3 [place] (three) Medical times Branch daily. rizatriptan 2022-0 Yes [id number] 5mg Take 1 [facility] 5 mg 4-05 tablet by [facility]at 00:00: mouth as [place] ing tablet 00 needed for Med ical Migraine [facility] (Take 5mg at the beginning of the headache can repeat 2h after if headaches persists). May repeat in 2 hours if needed magnesium 2022-0 Yes [id number] 400mg Take 2 [facility] gluconate 4-05 tablets by [facility] 200 mg 00:00: mouth 2 [place] tablet 00 (two) Medical times Branch daily. gabapentin 2022-0 Yes [id number] 300mg Take 1 [facility] 300 mg 4-05 capsule by [facility] capsule 00:00: mouth 3 [place] 00 (three) Medical times Branch daily. rizatriptan 2022-0 Yes [id number] 5mg Take 1 [facility] 5 mg 4-05 tablet by [facility] dis[facility]at 00:00: mouth as [place] ing tablet 00 needed for Med ical Migraine [facility] (Take 5mg at the beginning of the headache can repeat 2h after if headaches persists). May repeat in 2 hours if needed magnesium 2022-0 Yes [id number] 400mg Take 2 [facility] gluconate 4-05 tablets by [facility] 200 mg 00:00: mouth 2 [place] tablet 00 (two) Medical times Branch daily. gabapentin 2022-0 Yes [id number] 300mg Take 1 [facility] 300 mg 4-05 capsule by [facility] capsule 00:00: mouth 3 [place] (three) Medical times Branch daily. rizatriptan 2022-0 Yes [id number] 5mg Take 1 [facility] 5 mg 4-05 tablet by [facility] dis[facility]at 00:00: mouth as [place] ing tablet 00 needed for Med ical Migraine Branch (Take 5mg at the beginning of the headache can repeat 2h after if headaches persists). May repeat in 2 hours if needed magnesium 2022-0 Yes [id number] 400mg Take 2 [facility] gluconate 4-05 tablets by [facility] 200 mg 00:00: mouth 2 [place] tablet 00 (two) Medical times Branch daily. gabapentin 2022-0 Yes [id number] 300mg Take 1 [facility] 300 mg 4-05 capsule by [facility] capsule 00:00: mouth 3 (three) Medical times Branch daily. rizatriptan 2022-0 Yes [id number] 5mg Take 1 [facility] 5 mg 4-05 tablet by [facility] dis[facility]at 00:00: mouth as [place] ing tablet 00 needed for Med ical Migraine Branch (Take 5mg at the beginning of the headache can repeat 2h after if headaches persists). May repeat in 2 hours if needed magnesium 2022-0 Yes [id number] 400mg Take 2 [facility] gluconate 4-05 tablets by [facility] 200 mg 00:00: mouth 2 [place] tablet 00 (two) Medical times Branch daily. gabapentin 2022-0 Yes [id number] 300mg Take 1 [facility] 300 mg 4-05 capsule by [facility] capsule 00:00: mouth 3 (three) Medical times Branch daily. rizatriptan 2022-0 Yes [id number] 5mg Take 1 [facility] 5 mg 4-05 tablet by [facility] dis[facility]at 00:00: mouth as [place] ing tablet 00 needed for Med ical Migraine Branch (Take 5mg at the beginning of the headache can repeat 2h after if headaches persists). May repeat in 2 hours if needed magnesium 2022-0 Yes [id number] 400mg Take 2 [facility] gluconate 4-05 tablets by [facility] 200 mg 00:00: mouth 2 [place] tablet 00 (two) Medical times Branch daily. gabapentin 2022-0 Yes [id number] 300mg Take 1 [facility] 300 mg 4-05 capsule by [facility] capsule 00:00: mouth 3 [place] (three) Medical times Branch daily. rizatriptan 2022-0 Yes [id number] 5mg Take 1 [facility] 5 mg 4-05 tablet by [facility] dis[facility]at 00:00: mouth as [place] ing tablet 00 needed for Med ical Migraine Branch (Take 5mg at the beginning of the headache can repeat 2h after if headaches persists). May repeat in 2 hours if needed magnesium 2022-0 Yes [id number] 400mg Take 2 [facility] gluconate 4-05 tablets by [facility] 200 mg 00:00: mouth 2 [place] tablet 00 (two) Medical times Branch daily. gabapentin 2022-0 Yes [id number] 300mg Take 1 [facility] 300 mg 4-05 capsule by [facility] capsule 00:00: mouth 3 [place] (three) Medical times Branch daily. rizatriptan 2022-0 Yes [id number] 5mg Take 1 [facility] 5 mg 4-05 tablet by [facility] dis[facility]at 00:00: mouth as [place] ing tablet 00 needed for Med ical Migraine Branch (Take 5mg at the beginning of the headache can repeat 2h after if headaches persists). May repeat in 2 hours if needed magnesium 2022-0 Yes [id number] 400mg Take 2 [facility] gluconate 4-05 tablets by [facility] 200 mg 00:00: mouth 2 [place] tablet 00 (two) Medical times Branch daily. gabapentin 2022-0 Yes [id number] 300mg Take 1 [facility] 300 mg 4-05 capsule by [facility] capsule 00:00: mouth 3 (three) Medical times Branch daily. rizatriptan 2022-0 Yes [id number] 5mg Take 1 [facility] 5 mg 4-05 tablet by [facility] dis[facility]at 00:00: mouth as [place] ing tablet 00 needed for Med ical Migraine [facility] (Take 5mg at the beginning of the headache can repeat 2h after if headaches persists). May repeat in 2 hours if needed magnesium 2022-0 Yes [id number] 400mg Take 2 [facility] gluconate 4-05 tablets by [facility] of 200 mg 00:00: mouth 2 [place] tablet 00 (two) Medical times Branch daily. gabapentin 2022-0 Yes [id number] 300mg Take 1 [facility] 300 mg 4-05 capsule by [facility] capsule 00:00: mouth 3 [place] 00 (three) Medical times Branch daily. rizatriptan 2022-0 Yes [id number] 5mg Take 1 [facility] 5 mg 4-05 tablet by [facility] dis[facility]at 00:00: mouth as [place] ing tablet 00 needed for Med ical Migraine [facility] (Take 5mg at the beginning of the headache can repeat 2h after if headaches persists). May repeat in 2 hours if needed magnesium 2022-0 Yes [id number] 400mg Take 2 [facility] gluconate 4-05 tablets by [facility] of 200 mg 00:00: mouth 2 [place] tablet 00 (two) Medical times Branch daily. gabapentin 2022-0 Yes [id number] 300mg Take 1 [facility] 300 mg 4-05 capsule by [facility] capsule 00:00: mouth 3 [place] 00 (three) Medical times Branch daily. rizatriptan 2022-0 Yes [id number] 5mg Take 1 [facility] 5 mg 4-05 tablet by [facility] dis[facility]at 00:00: mouth as [place] ing tablet 00 needed for Med ical Migraine [facility] (Take 5mg at the beginning of the headache can repeat 2h after if headaches persists). May repeat in 2 hours if needed magnesium 2022-0 Yes [id number] 400mg Take 2 [facility] gluconate 4-05 tablets by [facility] of 200 mg 00:00: mouth 2 [place] tablet 00 (two) Medical times Branch daily. gabapentin 2022-0 Yes [id number] 300mg Take 1 [facility] 300 mg 4-05 capsule by [facility] capsule 00:00: mouth 3 [place] 00 (three) Medical times Branch daily. rizatriptan 2022-0 Yes [id number] 5mg Take 1 [facility] 5 mg 4-05 tablet by [facility] disintegrat 00:00: mouth as [place] ing tablet 00 needed for Med ical Migraine [facility] (Take 5mg at the beginning of the headache can repeat 2h after if headaches persists). May repeat in 2 hours if needed magnesium 2022-0 Yes [id number] 400mg Take 2 [facility] gluconate 4-05 tablets by [facility] of 200 mg 00:00: mouth 2 [place] tablet 00 (two) Medical times Branch daily. gabapentin 2022-0 Yes [id number] 300mg Take 1 [facility] 300 mg 4-05 capsule by [facility] of capsule 00:00: mouth 3 [place] 00 (three) Medical times Branch daily. rizatriptan 2022-0 Yes [id number] 5mg Take 1 [facility] 5 mg 4-05 tablet by [facility] disintegrat 00:00: mouth as [place] ing tablet 00 needed for Med ical Migraine Branch (Take 5mg at the beginning of the headache can repeat 2h after if headaches persists). May repeat in 2 hours if needed magnesium 2022-0 Yes [id number] 400mg Take 2 [facility] gluconate 4-05 tablets by [facility] of 200 mg 00:00: mouth 2 [place] tablet 00 (two) Medical times Branch daily. gabapentin 2022-0 Yes [id number] 300mg Take 1 [facility] 300 mg 4-05 capsule by [facility] capsule 00:00: mouth 3 [place] (three) Medical times Branch daily. rizatriptan 2022-0 Yes [id number] 5mg Take 1 [facility] 5 mg 4-05 tablet by [facility] disintegrat 00:00: mouth as [place] ing tablet 00 needed for Med ical Migraine [facility] (Take 5mg at the beginning of the headache can repeat 2h after if headaches persists). May repeat in 2 hours if needed magnesium 2022-0 Yes [id number] 400mg Take 2 [facility] gluconate 4-05 tablets by [facility] of 200 mg 00:00: mouth 2 [place] tablet 00 (two) Medical times Branch daily. gabapentin 2022-0 Yes [id number] 300mg Take 1 [facility] 300 mg 4-05 capsule by [facility] of capsule 00:00: mouth 3 (three) Medical times Branch daily. rizatriptan 2022-0 Yes [id number] 5mg Take 1 [facility] 5 mg 4-05 tablet by [facility] disintegrat 00:00: mouth as [place] ing tablet 00 needed for Med ical Migraine Branch (Take 5mg at the beginning of the headache can repeat 2h after if headaches persists). May repeat in 2 hours if needed magnesium 2022-0 Yes [id number] 400mg Take 2 [facility] gluconate 4-05 tablets by [facility] of 200 mg 00:00: mouth 2 [place] tablet 00 (two) Medical times Branch daily. gabapentin 2022-0 Yes [id number] 300mg Take 1 [facility] 300 mg 4-05 capsule by [facility] of capsule 00:00: mouth 3 [place] 00 (three) Medical times Branch daily. rizatriptan 2022-0 Yes [id number] 5mg Take 1 [facility] 5 mg 4-05 tablet by [facility] disintegrat 00:00: mouth as [place] ing tablet 00 needed for Med ical Migraine [facility] (Take 5mg at the beginning of the headache can repeat 2h after if headaches persists). May repeat in 2 hours if needed magnesium 2022-0 Yes [id number] 400mg Take 2 [facility] gluconate 4-05 tablets by [facility] of 200 mg 00:00: mouth 2 [place] tablet 00 (two) Medical times Branch daily. gabapentin 2022-0 Yes [id number] 300mg Take 1 [facility] 300 mg 4-05 capsule by [facility] of capsule 00:00: mouth 3 [place] 00 (three) Medical times Branch daily. rizatriptan 2022-0 Yes [id number] 5mg Take 1 [facility] 5 mg 4-05 tablet by [facility] disintegrat 00:00: mouth as [place] ing tablet 00 needed for Med ical Migraine [facility] (Take 5mg at the beginning of the headache can repeat 2h after if headaches persists). May repeat in 2 hours if needed magnesium 2022-0 Yes [id number] 400mg Take 2 [facility] gluconate 4-05 tablets by [facility] of 200 mg 00:00: mouth 2 [place] tablet 00 (two) Medical times Branch daily. gabapentin 2022-0 Yes [id number] 300mg Take 1 [facility] 300 mg 4-05 capsule by [facility] of capsule 00:00: mouth 3 [place] 00 (three) Medical times Branch daily. rizatriptan 2022-0 Yes [id number] 5mg Take 1 [facility] 5 mg 4-05 tablet by [facility] disintegrat 00:00: mouth as [place] ing tablet 00 needed for Med ical Migraine [facility] (Take 5mg at the beginning of the headache can repeat 2h after if headaches persists). May repeat in 2 hours if needed magnesium 2022-0 Yes [id number] 400mg Take 2 [facility] gluconate 4-05 tablets by [facility] of 200 mg 00:00: mouth 2 [place] tablet 00 (two) Medical times Branch daily. gabapentin 2022-0 Yes [id number] 300mg Take 1 [facility] 300 mg 4-05 capsule by [facility] of capsule 00:00: mouth 3 [place] 00 (three) Medical times Branch daily. rizatriptan 2022-0 Yes [id number] 5mg Take 1 [facility] 5 mg 4-05 tablet by [facility] disintegrat 00:00: mouth as [place] ing tablet 00 needed for Med ical Migraine [facility] (Take 5mg at the beginning of the headache can repeat 2h after if headaches persists). May repeat in 2 hours if needed magnesium 2022-0 Yes [id number] 400mg Take 2 [facility] gluconate 4-05 tablets by [facility] of 200 mg 00:00: mouth 2 [place] tablet 00 (two) Medical times Branch daily. gabapentin 2022-0 Yes [id number] 300mg Take 1 [facility] 300 mg 4-05 capsule by [facility] of capsule 00:00: mouth 3 [place] 00 (three) Medical times Branch daily. rizatriptan 2022-0 Yes [id number] 5mg Take 1 [facility] 5 mg 4-05 tablet by [facility] disintegrat 00:00: mouth as [place] ing tablet 00 needed for Med ical Migraine [facility] (Take 5mg at the beginning of the headache can repeat 2h after if headaches persists). May repeat in 2 hours if needed magnesium 2022-0 Yes [id number] 400mg Take 2 [facility] gluconate 4-05 tablets by [facility] of 200 mg 00:00: mouth 2 [place] tablet 00 (two) Medical times Branch daily. gabapentin 2-0 Yes [id number] 300mg Take 1 [facility] 300 mg 4-05 capsule by [facility] of capsule 00:00: mouth 3 [place] 00 (three) Medical times Branch daily. rizatriptan 2022-0 Yes [id number] 5mg Take 1 [facility] 5 mg 4-05 tablet by [facility] disintegrat 00:00: mouth as [place] ing tablet 00 needed for Med ical Migraine [facility] (Take 5mg at the beginning of the headache can repeat 2h after if headaches persists). May repeat in 2 hours if needed magnesium 2-0 Yes [id number] 400mg Take 2 [facility] gluconate 4-05 tablets by [facility] of 200 mg 00:00: mouth 2 [place] tablet 00 (two) Medical times Branch daily. gabapentin 2022-0 Yes [id number] 300mg Take 1 [facility] 300 mg 4-05 capsule by [facility] of capsule 00:00: mouth 3 [place] 00 (three) Medical times Branch daily. rizatriptan 2022-0 Yes [id number] 5mg Take 1 [facility] 5 mg 4-05 tablet by [facility] disintegrat 00:00: mouth as [place] ing tablet 00 needed for Med ical Migraine [facility] (Take 5mg at the beginning of the headache can repeat 2h after if headaches persists). May repeat in 2 hours if needed ondansetron 2020-0 Yes [id number] 4mg Take 1 [facility] (ZOFRAN 7-22 tablet by [facility] of ODT) 4 mg 00:00: mouth [place] disintegrat 00 every 8 [facility] al ing tablet (eight) Branch hours as needed for Nausea and Vomiting (N/V). ondansetron 2020-0 Yes [id number] 4mg Take 1 [facility] (ZOFRAN 7-22 tablet by [facility] of ODT) 4 mg 00:00: mouth [place] disintegrat 00 every 8 [facility] al ing tablet (eight) Branch hours as needed for Nausea and Vomiting (N/V). ondansetron 2020-0 Yes [id number] 4mg Take 1 [facility] (ZOFRAN 7-22 tablet by [facility] of ODT) 4 mg 00:00: mouth [place] disintegrat 00 every 8 Medic al ing tablet (eight) Branch hours as needed for Nausea and Vomiting (N/V). ondansetron 2020-0 Yes [id number] 4mg Take 1 [facility] (ZOFRAN 7-22 tablet by [facility] of ODT) 4 mg 00:00: mouth [place] disintegrat 00 every 8 Medic al ing tablet (eight) Branch hours as needed for Nausea and Vomiting (N/V). ondansetron 2020-0 Yes [id number] 4mg Take 1 [facility] (ZOFRAN 7-22 tablet by [facility] of ODT) 4 mg 00:00: mouth [place] disintegrat 00 every 8 Medic al ing tablet (eight) Branch hours as needed for Nausea and Vomiting (N/V). ondansetron 2020-0 Yes [id number] 4mg Take 1 [facility] (ZOFRAN 7-22 tablet by [facility]y of ODT) 4 mg 00:00: mouth [place] disintegrat 00 every 8 Medic al ing tablet (eight) Branch hours as needed for Nausea and Vomiting (N/V). ondansetron 2020-0 Yes [id number] 4mg Take 1 [facility] (ZOFRAN 7-22 tablet by [facility] of ODT) 4 mg 00:00: mouth [place] disintegrat 00 every 8 Medic al ing tablet (eight) Branch hours as needed for Nausea and Vomiting (N/V). ondansetron 1-0 Yes [id number] 4mg Take 1 [facility] (ZOFRAN 7-22 tablet by [facility] of ODT) 4 mg 00:00: mouth [place] disintegrat 00 every 8 Medic al ing tablet (eight) Branch hours as needed for Nausea and Vomiting (N/V). ondansetron 2020-0 Yes [id number] 4mg Take 1 [facility] (ZOFRAN 7-22 tablet by [facility] of ODT) 4 mg 00:00: mouth [place] disintegrat 00 every 8 Medic al ing tablet (eight) Branch hours as needed for Nausea and Vomiting (N/V). ondansetron 2020-0 Yes [id number] 4mg Take 1 [facility] (ZOFRAN 7-22 tablet by [facility] of ODT) 4 mg 00:00: mouth [place] disintegrat 00 every 8 Medic al ing tablet (eight) Branch hours as needed for Nausea and Vomiting (N/V). ondansetron 2020-0 Yes [id number] 4mg Take 1 [facility] (ZOFRAN 7-22 tablet by [facility] of ODT) 4 mg 00:00: mouth [place] disintegrat 00 every 8 Medic al ing tablet (eight) Branch hours as needed for Nausea and Vomiting (N/V). ondansetron 2020-0 Yes [id number] 4mg Take 1 [facility] (ZOFRAN 7-22 tablet by ity of ODT) 4 mg 00:00: mouth [place] disintegrat 00 every 8 Medic al ing tablet (eight) Branch hours as needed for Nausea and Vomiting (N/V). ondansetron 2020-0 Yes [id number] 4mg Take 1 [facility] (ZOFRAN 7-22 tablet by [facility]y of ODT) 4 mg 00:00: mouth [place] disintegrat 00 every 8 Medic al ing tablet (eight) Branch hours as needed for Nausea and Vomiting (N/V). ondansetron 2020-0 Yes [id number] 4mg Take 1 [facility] (ZOFRAN 7-22 tablet by [facility] of ODT) 4 mg 00:00: mouth [place] disintegrat 00 every 8 Medic al ing tablet (eight) Branch hours as needed for Nausea and Vomiting (N/V). ondansetron 2020-0 Yes [id number] 4mg Take 1 [facility] (ZOFRAN 7-22 tablet by [facility] of ODT) 4 mg 00:00: mouth [place] disintegrat 00 every 8 Medic al ing tablet (eight) Branch hours as needed for Nausea and Vomiting (N/V). ondansetron 2020-0 Yes [id number] 4mg Take 1 [facility] (ZOFRAN 7-22 tablet by [facility] of ODT) 4 mg 00:00: mouth [place] disintegrat 00 every 8 Medic al ing tablet (eight) Branch hours as needed for Nausea and Vomiting (N/V). ondansetron 2020-0 Yes [id number] 4mg Take 1 [facility] (ZOFRAN 7-22 tablet by [facility] of ODT) 4 mg 00:00: mouth [place] disintegrat 00 every 8 Medic al ing tablet (eight) Branch hours as needed for Nausea and Vomiting (N/V). ondansetron 2020-0 Yes [id number] 4mg Take 1 [facility] (ZOFRAN 7-22 tablet by [facility] of ODT) 4 mg 00:00: mouth [place] disintegrat 00 every 8 Medic al ing tablet (eight) Branch hours as needed for Nausea and Vomiting (N/V). ondansetron 2020-0 Yes [id number] 4mg Take 1 [facility] (ZOFRAN 7-22 tablet by [facility] of ODT) 4 mg 00:00: mouth [place] disintegrat 00 every 8 Medic al ing tablet (eight) Branch hours as needed for Nausea and Vomiting (N/V). ondansetron 2020-0 Yes [id number] 4mg Take 1 [facility] (ZOFRAN 7-22 tablet by [facility]y of ODT) 4 mg 00:00: mouth [place] disintegrat 00 every 8 Medic al ing tablet (eight) Branch hours as needed for Nausea and Vomiting (N/V). ondansetron 2020-0 Yes [id number] 4mg Take 1 [facility] (ZOFRAN 7-22 tablet by [facility] of ODT) 4 mg 00:00: mouth [place] disintegrat 00 every 8 Medic al ing tablet (eight) Branch hours as needed for Nausea and Vomiting (N/V). ondansetron 2020-0 Yes [id number] 4mg Take 1 [facility] (ZOFRAN 7-22 tablet by [facility]y of ODT) 4 mg 00:00: mouth [place] disintegrat 00 every 8 Medic al ing tablet (eight) Branch hours as needed for Nausea and Vomiting (N/V). ondansetron 2020-0 Yes [id number] 4mg Take 1 [facility] (ZOFRAN 7-22 tablet by ity of ODT) 4 mg 00:00: mouth [place] disintegrat 00 every 8 Medic al ing tablet (eight) Branch hours as needed for Nausea and Vomiting (N/V). ondansetron 2021-0 Yes [id number] 4mg Take 1 [facility] (ZOFRAN 7-22 tablet by ity of ODT) 4 mg 00:00: mouth [place] disintegrat 00 every 8 Medic al ing tablet (eight) Branch hours as needed for Nausea and Vomiting (N/V). ondansetron 2020-0 Yes [id number] 4mg Take 1 [facility] (ZOFRAN 7-22 tablet by [facility]y of ODT) 4 mg 00:00: mouth [place] disintegrat 00 every 8 Medic al ing tablet (eight) Branch hours as needed for Nausea and Vomiting (N/V). ondansetron 2020-0 Yes [id number] 4mg Take 1 [facility] (ZOFRAN 7-22 tablet by [facility]y of ODT) 4 mg 00:00: mouth [place] disintegrat 00 every 8 Medic al ing tablet (eight) Branch hours as needed for Nausea and Vomiting (N/V). ondansetron 2020-0 Yes [id number] 4mg Take 1 [facility] (ZOFRAN 7-22 tablet by ity of ODT) 4 mg 00:00: mouth [place] disintegrat 00 every 8 Medic al ing tablet (eight) Branch hours as needed for Nausea and Vomiting (N/V). ondansetron 2020-0 Yes [id number] 4mg Take 1 [facility] (ZOFRAN 7-22 tablet by ity of ODT) 4 mg 00:00: mouth [place] disintegrat 00 every 8 Medic al ing tablet (eight) Branch hours as needed for Nausea and Vomiting (N/V). ondansetron 2020-0 Yes [id number] 4mg Take 1 [facility] (ZOFRAN 7-22 tablet by ity of ODT) 4 mg 00:00: mouth [place] disintegrat 00 every 8 Medic al ing tablet (eight) Branch hours as needed for Nausea and Vomiting (N/V). ondansetron 2021-0 Yes [id number] 4mg Take 1 [facility] (ZOFRAN 7-22 tablet by ity of ODT) 4 mg 00:00: mouth [place] disintegrat 00 every 8 Medic al ing tablet (eight) Branch hours as needed for Nausea and Vomiting (N/V). ondansetron 2020-0 Yes [id number] 4mg Take 1 [facility] (ZOFRAN 7-22 tablet by ity of ODT) 4 mg 00:00: mouth [place] disintegrat 00 every 8 Medic al ing tablet (eight) Branch hours as needed for Nausea and Vomiting (N/V). ondansetron 2021-0 Yes [id number] 4mg Take 1 [facility] (ZOFRAN 7-22 tablet by ity of ODT) 4 mg 00:00: mouth [place] disintegrat 00 every 8 Medic al ing tablet (eight) Branch hours as needed for Nausea and Vomiting (N/V). ondansetron 2021-0 Yes [id number] 4mg Take 1 [facility] (ZOFRAN 7-22 tablet by ity of ODT) 4 mg 00:00: mouth [place] disintegrat 00 every 8 Medic al ing tablet (eight) Branch hours as needed for Nausea and Vomiting (N/V). ondansetron 1-0 Yes [id number] 4mg Take 1 [facility] (ZOFRAN 7-22 tablet by ity of ODT) 4 mg 00:00: mouth [place] disintegrat 00 every 8 Medic al ing tablet (eight) Branch hours as needed for Nausea and Vomiting (N/V). ondansetron 2020-0 Yes [id number] 4mg Take 1 [facility] (ZOFRAN 7-22 tablet by ity of ODT) 4 mg 00:00: mouth [place] disintegrat 00 every 8 Medic al ing tablet (eight) Branch hours as needed for Nausea and Vomiting (N/V). ondansetron 2021-0 Yes [id number] 4mg Take 1 [facility] (ZOFRAN 7-22 tablet by ity of ODT) 4 mg 00:00: mouth [place] disintegrat 00 every 8 Medic al ing tablet (eight) Branch hours as needed for Nausea and Vomiting (N/V). ondansetron 1-0 Yes [id number] 4mg Take 1 [facility] (ZOFRAN 7-22 tablet by ity of ODT) 4 mg 00:00: mouth [place] disintegrat 00 every 8 Medic al ing tablet (eight) Branch hours as needed for Nausea and Vomiting (N/V). ondansetron 2021-0 Yes [id number] 4mg Take 1 [facility] (ZOFRAN 7-22 tablet by ity of ODT) 4 mg 00:00: mouth [place] disintegrat 00 every 8 Medic al ing tablet (eight) Branch hours as needed for Nausea and Vomiting (N/V). ondansetron 2021-0 Yes [id number] 4mg Take 1 [facility] (ZOFRAN 7-22 tablet by ity of ODT) 4 mg 00:00: mouth [place] disintegrat 00 every 8 Medic al ing tablet (eight) Branch hours as needed for Nausea and Vomiting (N/V). ondansetron 2021-0 Yes [id number] 4mg Take 1 [facility] (ZOFRAN 7-22 tablet by ity of ODT) 4 mg 00:00: mouth [place] disintegrat 00 every 8 Medic al ing tablet (eight) Branch hours as needed for Nausea and Vomiting (N/V). ondansetron 2021-0 Yes [id number] 4mg Take 1 Univers (ZOFRAN 7-22 tablet [...] by mouth ity of tablet 13:17: at [place] [address] bedtime. Medical Branch allopurinoL 2020-0 Yes 100mg Take 100 U nivers 100 mg 6-24 mg by ity of tablet 13:17: mouth [place] 52 daily. Medical Branch atorvastati 2020-0 Yes 10mg Take 10 mg Univers n 10 mg 6-24 by mouth ity of tablet 13:17: at [place] 52 bedtime. Medical Branch allopurinoL 2020-0 Yes 100mg Take 100 U nivers 100 mg 6-24 mg by ity of tablet 13:17: mouth [place] 52 daily. Medical Branch atorvastati 2020-0 Yes 10mg Take 10 mg Univers n 10 mg 6-24 by mouth ity of tablet 13:17: at [place] [address] bedtime. Medical Branch allopurinoL 2020-0 Yes 100mg Take 100 U nivers 100 mg 6-24 mg by ity of tablet 13:17: mouth [place] 52 daily. Medical Branch atorvastati 2020-0 Yes 10mg Take 10 mg Univers n 10 mg 6-24 by mouth ity of tablet 13:17: at [place] [address] bedtime. Medical Branch allopurinoL 2020-0 Yes 100mg Take 100 U nivers 100 mg 6-24 mg by ity of tablet 13:17: mouth [place] 52 daily. Medical Branch atorvastati 2020-0 Yes 10mg Take 10 mg Univers n 10 mg 6-24 by mouth ity of tablet 13:17: at [place] [address] bedtime. Medical Branch allopurinoL 2020-0 Yes 100mg Take 100 U nivers 100 mg 6-24 mg by ity of tablet 13:17: mouth [place] 52 daily. Medical Branch atorvastati 2020-0 Yes 10mg Take 10 mg Univers n 10 mg 6-24 by mouth ity of tablet 13:17: at [place] [address] bedtime. Medical Branch allopurinoL 2020-0 Yes 100mg Take 100 U nivers 100 mg 6-24 mg by ity of tablet 13:17: mouth [place] 52 daily. Medical Branch atorvastati 2020-0 Yes 10mg Take 10 mg Univers n 10 mg 6-24 by mouth ity of tablet 13:17: at [place] [address] bedtime. Medical Branch allopurinoL 2020-0 Yes 100mg Take 100 U nivers 100 mg 6-24 mg by ity of tablet 13:17: mouth [place] 52 daily. Medical Branch atorvastati 2020-0 Yes 10mg Take 10 mg Univers n 10 mg 6-24 by mouth ity of tablet 13:17: at [place] [address] bedtime. Medical Branch allopurinoL 2020-0 Yes 100mg Take 100 U nivers 100 mg 6-24 mg by ity of tablet 13:17: mouth [place] 52 daily. Medical Branch atorvastati 2020-0 Yes 10mg Take 10 mg Univers n 10 mg 6-24 by mouth ity of tablet 13:17: at [place] 52 bedtime. Medical Branch allopurinoL 2020-0 Yes 100mg Take 100 U nivers 100 mg 6-24 mg by ity of tablet 13:17: mouth [place] 52 daily. Medical Branch atorvastati 2020-0 Yes 10mg Take 10 mg Univers n 10 mg 6-24 by mouth ity of tablet 13:17: at [place] [address] bedtime. Medical Branch allopurinoL 2020-0 Yes 100mg Take 100 U nivers 100 mg 6-24 mg by ity of tablet 13:17: mouth [place] 52 daily. Medical Branch atorvastati 2020-0 Yes 10mg Take 10 mg Univers n 10 mg 6-24 by mouth ity of tablet 13:17: at [place] [address] bedtime. Medical Branch allopurinoL 2020-0 Yes 100mg Take 100 U nivers 100 mg 6-24 mg by ity of tablet 13:17: mouth [place] 52 daily. Medical Branch atorvastati 2020-0 Yes 10mg Take 10 mg Univers n 10 mg 6-24 by mouth ity of tablet 13:17: at [place] [address] bedtime. Medical Branch allopurinoL 2020-0 Yes 100mg Take 100 U nivers 100 mg 6-24 mg by ity of tablet 13:17: mouth [place] 52 daily. Medical Branch atorvastati 2020-0 Yes 10mg Take 10 mg Univers n 10 mg 6-24 by mouth ity of tablet 13:17: at [place] [address] bedtime. Medical Branch allopurinoL 2020-0 Yes 100mg Take 100 U nivers 100 mg 6-24 mg by ity of tablet 13:17: mouth [place] 52 daily. Medical Branch atorvastati 2020-0 Yes 10mg Take 10 mg Univers n 10 mg 6-24 by mouth ity of tablet 13:17: at [place] [address] bedtime. Medical Branch allopurinoL 2020-0 Yes 100mg [...] by mouth ity of tablet 13:17: at [place] 52 bedtime. Medical Branch allopurinoL 2020-0 Yes [...] by mouth ity of tablet 13:17: at [place] 52 bedtime. Medical Branch allopurinoL 2020-0 Yes [...] by mouth ity of tablet 13:17: at [place] 52 bedtime. Medical Branch allopurinoL 2020-0 Yes [...] by mouth ity of tablet 13:17: at [place] [address] bedtime. Medical Branch allopurinoL 2020-0 Yes 100mg Take 100 U nivers 100 mg 6-24 mg by ity of tablet 13:17: mouth [place] 52 daily. Medical Branch atorvastati 2020-0 Yes 10mg Take 10 mg Univers n 10 mg 6-24 by mouth ity of tablet 13:17: at [place] [address] bedtime. Medical Branch allopurinoL 2020-0 Yes 100mg Take 100 U nivers 100 mg 6-24 mg by ity of tablet 13:17: mouth [place] 52 daily. Medical Branch atorvastati 2020-0 Yes 10mg Take 10 mg Univers n 10 mg 6-24 by mouth ity of tablet 13:17: at [place] [address] bedtime. Medical Branch allopurinoL 2020-0 Yes 100mg Take 100 U nivers 100 mg 6-24 mg by ity of tablet 13:17: mouth [place] 52 daily. Medical Branch atorvastati 2020-0 Yes 10mg Take 10 mg Univers n 10 mg 6-24 by mouth ity of tablet 13:17: at [place] [address] bedtime. Medical Branch allopurinoL 2020-0 Yes 100mg Take 100 U nivers 100 mg 6-24 mg by ity of tablet 13:17: mouth [place] 52 daily. Medical Branch atorvastati 2020-0 Yes 10mg Take 10 mg Univers n 10 mg 6-24 by mouth ity of tablet 13:17: at [place] [address] bedtime. Medical Branch allopurinoL 2020-0 Yes 100mg Take 100 U nivers 100 mg 6-24 mg by ity of tablet 13:17: mouth [place] 52 daily. Medical Branch atorvastati 2020-0 Yes 10mg Take 10 mg Univers n 10 mg 6-24 by mouth ity of tablet 13:17: at [place] [address] bedtime. Medical Branch allopurinoL 2020-0 Yes 100mg Take 100 U nivers 100 mg 6-24 mg by ity of tablet 13:17: mouth [place] 52 daily. Medical Branch atorvastati 2020-0 Yes 10mg Take 10 mg Univers n 10 mg 6-24 by mouth ity of tablet 13:17: at [place] [address] bedtime. Medical Branch allopurinoL 2020-0 Yes 100mg Take 100 U nivers 100 mg 6-24 mg by ity of tablet 13:17: mouth [place] 52 daily. Medical Branch atorvastati 2020-0 Yes 10mg Take 10 mg Univers n 10 mg 6-24 by mouth ity of tablet 13:17: at [place] [address] bedtime. Medical Branch allopurinoL 2020-0 Yes 100mg Take 100 U nivers 100 mg 6-24 mg by ity of tablet 13:17: mouth [place] 52 daily. Medical Branch atorvastati 2020-0 Yes 10mg Take 10 mg Univers n 10 mg 6-24 by mouth ity of tablet 13:17: at [place] [address] bedtime. Medical Branch propranolol 2020-0 Yes 80mg Take 80 mg Univers 80 mg 6-24 by mouth 2 ity of tablet 13:12: (two) [place] 38 times Medical daily. Branch propranolol 2020-0 Yes 80mg Take 80 mg Univers 80 mg 6-24 by mouth 2 ity of tablet 13:12: (two) [place] 38 times Medical daily. Branch propranolol 2020-0 Yes 80mg Take 80 mg Univers 80 mg 6-24 by mouth 2 ity of tablet 13:12: (two) [place] 38 times Medical daily. Branch propranolol 2020-0 [...] mouth 2 ity of tablet 13:12: (two) [place] 38 times Medical daily. Branch propranolol 2020-0 Yes 80mg Take 80 mg Univers 80 mg 6-24 by mouth 2 ity of tablet 13:12: (two) [place] 38 times Medical daily. Branch propranolol 2020-0 Yes 80mg Take 80 mg Univers 80 mg 6-24 by mouth 2 ity of tablet 13:12: (two) [place] 38 times Medical daily. Branch propranolol 2020-0 Yes 80mg Take 80 mg Univers 80 mg 6-24 by mouth 2 ity of tablet 13:12: (two) [place] 38 times Medical daily. Branch propranolol 2020-0 [...] mouth 2 ity of tablet 13:12: (two) [place] 38 times Medical daily. Branch propranolol 2020-0 [...] blood 2022-07-26 13:22:00 135 mm[Hg] Univer sity [facility] Diastolic blood 2022-07-26 13:22:00 78 mm[Hg] Unive rsity of [facility] Heart rate 2022-07-26 13:22:00 85 /min [facility] Respiratory rate 2022-07-26 13:22:00 18 /min [facility] Body height 2022-07-26 13:22:00 167.6 cm [facility] Body weight 2022-07-26 13:22:00 97.523 kg [facility] BMI 2022-07-26 13:22:00 34.70 kg/m2 [facility] Systolic blood 2022-02-15 14:59:00 131 mm[Hg] Univer sity of [facility] Diastolic blood 2022-02-15 14:59:00 70 mm[Hg] Unive rsity of [facility] Heart rate 2022-02-15 14:59:00 81 /min [facility] [place] [facility] Respiratory rate 2022-02-15 14:59:00 18 /min Univ ers[facility] [place] [facility] Body height 2022-02-15 14:59:00 167.6 cm [facility] [place] [facility] Body weight 2022-02-15 14:59:00 102.967 kg [facility] [place] [facility] BMI 2022-02-15 14:59:00 36.64 kg/m2 [facility] [place] [facility] Respiratory rate 2022-01-11 17:11:00 18 /min Univ ers[facility] [place] [facility] Body height 2022-01-11 17:11:00 167.6 cm [facility] [place] [facility] Body weight 2022-01-11 17:11:00 100.699 kg [facility] [place] [facility] BMI 2022-01-11 17:11:00 35.83 kg/m2 Universi ty of [facility] Branch Systolic blood 2021-08-24 14:24:00 133 mm[Hg] Univer sity of [facility] Diastolic blood 2021-08-24 14:24:00 73 mm[Hg] [facility] Heart rate 2021-08-24 14:24:00 69 /min [facility] [place] [facility] Respiratory rate 2021-08-24 14:24:00 18 /min Univ ersity of [place] [facility] [place] Body height 2021-08-24 14:24:00 167.6 cm [facility] [place] [facility] Body weight 2021-08-24 14:24:00 100.245 kg [facility] [place] [facility] BMI 2021-08-24 14:24:00 35.67 kg/m2 [facility] [place] [facility] Oxygen saturation in 2021-06-07 15:30:00 96 /min [facility] Arterial blood by [facility] Pulse oximetry Branch Body temperature 2021-06-07 14:20:30 37.44 Verna [facility] Procedures Procedure Date / Time Performed Performing Clinician Jael ALEJANDRO 2022-07-26 14:49:00 Angela [facility] PATIENT 2022-07-26 13:16:12 Doctor Unassigned, No Univer [facility]ity [facility] [place] FINANCIAL POLICY Name Medical Branch [facility] PATIENT 2022-07-26 13:16:12 Doctor Unassigned, No [...] Medical Branch LITHIUM 2022-02-15 15:58:00 Angela Sage [facility] CONSENT/REFUSAL FOR 2022-01-11 17:10:16 Doctor Unassigned, No Un [facility]vers[facility] [place] DIAGNOSIS AND Name Medical Branch TREATMENT CONSENT/REFUSAL FOR 2022-01-11 17:10:16 Doctor Unassigned, No Un [facility] [place] DIAGNOSIS AND Name Medical Branch TREATMENT Encounters Start End Encounter Admission Attending Care Care Encounter Source Date/Time Date/Time Type Type Clinicians Facility Department ID 2020-12-13 Emergency [facility] [id number] Univers 10:09:54 ity of [facility] 2020-12-11 Emergency [facility] [id number] Univers 04:02:45 ity of [facility] 2022-10-04 2022-10-04 Outpatient R [facility] [id number] Univers 09:30:00 09:30:00 ity of [facility] 2022-09-06 2022-09-06 Outpatient R UNA HESTER [facility] [id number] Univers 08:45:00 08:45:00 UNA HESTER ity of [facility] 2022-09-06 2022-09-06 Travel 1.2.840.1 1.2.049.187 [id number] Univers 00:00:00 00:00:00 84068.1.1 350.1.13.10 ity of 3.104.2.7 4.[place].7.3.698 [place] .3.225262 084.8 Medica l .8 Branch 2022-07-26 2022-07-26 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 Pathology 1.2.840.6 [id number] Univers 11:00:00 11:15:00 Visit Pcp-Lab 71861.1.1 ity of 3.104.2.7 [place] .3.725149 Medica l .8 [place] 2022-07-26 2022-07-26 Outpatient Tonya UNA HESTER [facility] [id number] Univers 08:45:00 09:37:46 UNA HESTER [facility] 2022-07-26 2022-07-26 Orders Doctor 1.2.840.6 [id number] Univers 00:00:00 00:00:00 Only Unassigned, 98305.1.1 ity of [place] 3.104.2.7 [place] .3.253257 Medica l .8 [place] 2022-07-26 2022-07-26 Travel 1.2.840.1 1.2.732.326 [id number] Univers 00:00:00 00:00:00 64885.1.1 350.1.13.10 ity of 3.104.2.7 4.[place].7.3.698 [place] .3.035102 084.8 Medica l .8 [place] 2022-07-24 2022-07-24 Outpatient SFA SFA [id number] Robert 13:24:12 13:24:[address] [facility] 2022-06-27 2022-06-27 Outpatient SFA SFA [id number] Robert 13:49:18 13:49:[address] [facility] 2022-06-21 2022-06-21 Outpatient SFA SFA [id number] Robert 08:52:50 08:52:[address] [facility] 2022-06-15 2022-06-15 Outpatient SFA SFA [id number] Robert 15:23:34 15:23:[address] [facility] 2022-05-31 2022-05-31 Outpatient Tonya UNA HESTER [facility] [id number] Univers 08:45:00 08:45:00 UNA HESTER [facility] 2022-05-30 2022-05-30 Outpatient [facility] [id number] Robert 11:55:27 11:55:27 0418 [facility] [place] 2022-05-23 2022-05-23 Outpatient SFA [facility] [id number] Robert 11:17:29 11:17:29 0411 [facility] [place] 2022-05-12 2022-05-12 Outpatient [facility] [id number] Robert 08:06:11 08:06:11 0331 [facility] [place] 2022-05-11 2022-05-11 Outpatient [facility] [id number] Robert 13:45:44 13:45:44 0330 [facility] [place] 2022-04-08 2022-04-08 Orders Doctor 1.2.840.8 [id number] Univers 00:00:00 00:00:00 Only Unassigned, 13311.1.1 ity of [place] 3.104.2.7 [place] .3.975307 Medica l .8 [place] 2022-02-21 2022-02-21 Orders Doctor 1.2.840.1 [id number] Univers 00:00:00 00:00:00 Only Unassigned, 32989.1.1 ity of [place] 3.104.2.7 [place] .3.369215 Medica l .8 [place] 2022-02-15 2022-02-15 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 Pathology 1.2.840.3 [id number] Univers 13:30:00 13:45:00 Visit Pcp-Lab 51786.1.1 ity of 3.104.2.7 [place] .3.299196 Medica l .8 [place] 2022-02-15 2022-02-15 Outpatient R SELF, [facility] [id number] Univers 08:45:00 10:52:26 DERRELL ity o f [facility] 2022-02-15 2022-02-15 Travel 1.2.840.1 1.2.643.415 [id number] Univers 00:00:00 00:00:00 26669.1.1 350.1.13.10 ity of 3.104.2.7 4.[place]7.3.698 [place] .3.415135 084.8 Medica l .8 [place] 2022-01-11 2022-01-11 Outpatient R UNA HESTER [facility] [id number] Univers 11:00:00 12:39:46 UNA HESTER [facility] 2022-01-11 2022-01-11 Orders Doctor 1.2.840.9 [id number] Univers 00:00:00 00:00:00 Only Unassigned, 81495.1.1 ity of [place] 3.104.2.7 [place] .3.628034 Medica l .8 [place] 2022-01-11 2022-01-11 Travel 1.2.840.1 1.2.334.563 [id number] Univers 00:00:00 00:00:00 27226.1.1 350.1.13.10 ity of 3.104.2.7 4.[place].7.3.698 [place] .3.805978 084.8 Medica l .8 [place] 2021-11-24 2021-11-24 Outpatient R QUENTIN, [facility] [id number] Univers 09:30:00 09:30:00 IGOR walters [facility] 2021-11-16 2021-11-16 Outpatient R UNA HESTER [facility] [id number] Univers 11:00:00 11:00:00 UNA HESTER [facility] 2021-10-26 2021-10-26 Outpatient R SELF, [facility] [id number] Univers 08:00:00 08:00:00 DERRELL wesley o [facility] 2021-10-20 2021-10-20 Outpatient R QUENTIN [facility] [id number] Univers 10:00:00 10:00:00 IGOR walters ujan [facility] 2021-10-03 2021-10-03 Outpatient R JENNIFER [facility] [id number] Univers 14:30:00 14:30:00 REX wesley [facility] 2021-09-21 2021-09-21 Outpatient R SELF, [facility] [id number] Univers 09:30:00 09:30:00 DERRELL martinez [facility] 2021-08-24 2021-08-24 Outpatient R SELF, [facility] [id number] Univers 09:30:00 10:41:34 DERRELL martinez [facility] 2021-08-24 2021-08-24 Travel 1.2.840.1 1.2.256.172 [id number] Univers 00:00:00 00:00:00 67351.1.1 350.1.13.10 ity of 3.104.2.7 [place]7.3.698 [place] .3.9733[place] 084.8 Medica l .8 [place] 2021-07-25 2021-07-25 Outpatient R SELF, [facility] [id number] Univers 09:00:00 09:00:00 DERRELL walters [facility] 2021-06-22 2021-06-22 Outpatient R UNA HESTER [facility] [id number] Univers 11:15:00 12:18:05 UNA HESTER dl [facility] 2021-06-22 2021-06-22 Outpatient R UNA HESTER [facility] [id number] Univers 11:15:00 11:15:00 UNA HESTER [facility] 2021-06-22 2021-06-22 Travel 1.2.840.1 1.2.197.769 [id number] Univers 00:00:00 00:00:00 98421.1.1 350.1.13.10 ity of 3.104.2.7 4.[place].7.3.698 [place] .3.711713 084.8 Medica l .8 [place] 2021-06-20 2021-06-20 Outpatient R SELF, [facility] [id number] Univers 11:15:00 11:15:00 DERRELL walters [facility] 2021-06-20 2021-06-20 Outpatient R SELF, [facility] [id number] Univers 11:15:00 11:15:00 DERRELL walters [facility] 2021-06-08 2021-06-08 Outpatient R ATANASOV HILARY [facility] [id number] Univers 09:20:00 09:20:00 TERESA HILARY ity of [facility] 2021-06-08 2021-06-08 Patient Saavedra, 1.2.840.4 [id number] Univers 00:00:00 00:00:00 Secure Msg Igor 46671.1.1 ity of [place] 3.104.2.7 [place] .3.282055 Medica l .8 [place] 2021-06-07 2021-06-07 Emergency X [place], [facility] ERT [id number] Univers 09:13:00 10:50:00 LULY wesley of [facility] 2021-06-07 2021-06-07 [facility] 1.2.609.717 [id number] Univers 09:13:00 10:50:00 Luly [place] 350.1.13.10 i ty of [place] 4.2.7.2.686 [facility] [id number] [facility] 084 [place] 2021-06-07 2021-06-07 Emergency Ny, 1.2.840.6 [id number] Univers 09:13:00 10:50:00 Luly 11626.1.1 ity of 3.104.2.7 [place] .3.774762 Medica l .8 [place] 2021-06-07 2021-06-07 Outpatient R SAAVEDRA, [facility] [id number] Univers 00:00:00 00:00:00 IGOR wesley o f [facility] 2021-06-07 2021-06-07 Orders Doctor MOO 1.2.840.114 [id number] Univers 00:00:00 00:00:00 Only Unassigned, QUITA 350.1.13.10 ity of [place] [facility] 4.2.7.2.686 [facility] [id number] [facility] 009 [place] 2021-06-07 2021-06-07 Travel 1.2.840.1 1.2.319.909 [id number] Univers 00:00:00 00:00:00 29783.1.1 350.1.13.10 ity of 3.104.2.7 4.[place]7.3.698 [place] .3.901726 084.8 Medica l .8 [place] 2021-06-07 2021-06-07 Orders Doctor 1.2.840.7 [id number] Univers 00:00:00 00:00:00 Only Unassigned, 09289.1.1 ity of [place] 3.104.2.7 [place] .3.021431 Medica l .8 Branch 2021-06-03 2021-06-03 Travel 1.2.840.1 1.2.289.920 [id number] Univers 00:00:00 00:00:00 54527.1.1 350.1.13.10 ity of 3.104.2.7 4.[place].7.3.698 [place] .3.957348 084.8 Medica l .8 [place] 2021-05-27 2021-05-27 Outpatient R SAAVEDRA, [facility] [id number] Univers 00:00:00 00:00:00 IGOR wesley o [facility] 2021-05-27 2021-05-27 Outpatient R SAAVEDRA, [facility] [id number] Univers 00:00:00 00:00:00 IGOR wesley o [facility] 2021-05-25 2021-05-25 Patient Doctor 1.2.840.5 [id number] Univers 00:00:00 00:00:00 Secure Msg Unassigned, 05131.1.1 ity of [place] 3.104.2.7 [place] .3.687632 Medica l .8 [place] 2021-05-25 2021-05-25 Patient Doctor 1.2.840.5 [id number] Univers 00:00:00 00:00:00 Secure Msg Unassigned, 93833.1.1 ity of [place] 3.104.2.7 [place] .3.163669 Medica l .8 Branch 2021-05-20 2021-05-20 Telephone Jones 1.2.840.2 [id number] Univers 00:00:00 00:00:00 Best, 79179.1.1 ity of [place] 3.104.2.7 [place] .3.963663 Medica l .8 Branch 2021-05-20 2021-05-20 Telephone Jones 1.2.840.7 [id number] Univers 00:00:00 00:00:00 Best, 72717.1.1 ity of [place] 3.104.2.7 [place] .3.672089 Medica l .8 Branch 2021-05-18 2021-05-18 Travel 1.2.840.1 1.2.917.662 [id number] Univers 00:00:00 00:00:00 37275.1.1 350.1.13.10 ity of 3.104.2.7 4.2.7.3.698 [place] .3.376615 084.8 Medica l .8 Branch 2021-05-18 2021-05-18 Travel 1.2.840.1 1.2.864.179 [id number] Univers 00:00:00 00:00:00 70462.1.1 350.1.13.10 ity of 3.104.2.7 4.2.7.3.698 [place] .3.976104 084.8 Medica l .8 Branch 2021-05-17 2021-05-17 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 Pcp-Lab [facility] 1.2.840.114 [id number] Univers 13:15:00 13:30:00 Visit Igor Saavedra PRIMARY 350.1.13.1 0 ity of [place].2.686 [place] [id number] Ks dical 366 [place] 2021-05-17 2021-05-17 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 Igor Saavedra 1.2.840.1 1 [id number] Univers 13:15:00 13:30:00 Visit Pcp-Lab 67430.1.1 ity of 3.104.2.7 [place] .3.482957 Medica l .8 Branch 2021-05-17 2021-05-17 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 Igor Saavedra 1.2.840.1 1 [id number] Univers 13:15:00 13:30:00 Visit Pcp-Lab 01477.1.1 ity of 3.104.2.7 [place] .3.008912 Medica l .8 [place] 2021-05-17 2021-05-17 Outpatient R [facility] [id number] Univers 09:00:00 10:25:[address] [facility] 2021-05-17 2021-05-17 Office Igor Saavedra 1.2.840.1 [id number] Univers 09:00:00 10:25:05 Visit Deonte Joel 45810.1.1 ity of 3.104.2.7 [place] .3.840650 Medica l .8 [place] 2021-05-17 2021-05-17 Outpatient R [facility] [id number] Univers 09:00:00 10:25:05 [facility] [place] [facility] 2021-05-17 2021-05-17 Outpatient R [facility] [id number] Univers 09:30:00 09:30:00 [facility]The [facility] [place] [facility] 2021-05-17 2021-05-17 Travel 1.2.840.1 1.2.057.617 [id number] Univers 00:00:00 00:00:00 44309.1.1 350.1.13.10 ity of 3.104.2.7 4.[place]7.3.698 [place] .3.692770 084.8 Medica l .8 [place] 2021-05-17 2021-05-17 Travel 1.2.840.1 1.2.095.976 [id number] Univers 00:00:00 00:00:00 08307.1.1 350.1.13.10 ity of 3.104.2.7 4.[place].7.3.698 [place] .3.190021 084.8 Medica l .8 [place] 2021-04-26 2021-04-26 Outpatient R [facility] [id number] Univers 09:00:00 09:00:00 ity [facility] 2021-04-26 2021-04-26 Outpatient R WENDY [facility] [id number] Univers 09:00:00 09:00:00 ATTENDING ity [facility] 2021-04-20 2021-04-20 Outpatient R UNA HESTER [facility] [id number] Univers 08:45:00 08:45:00 [facility] 2021-04-[facility] 2021-04-11 Outpatient R SALLY MITCHELL [facility] [id number] Univers 08:40:00 08:40:00 SALLY MITCHELL [facility] 2021-04-11 2021-04-11 Outpatient R PAULASALLY [facility] [id number] Univers 08:40:00 08:40:00 SALLY MITCHELL [facility] 2021-03-21 2021-03-21 Outpatient R PAULASALLY Matos [facility] [id number] Univers 08:00:00 08:00:00 PAULASALLY [facility] 2021-03-17 2021-03-17 Patient Doctor 1.2.840.7 [id number] Univers 00:00:00 00:00:00 Secure Msg Unassigned, 20106.1.1 ity of [place] 3.104.2.7 [place] .3.318614 Medica l .8 [place] 2021-03-17 2021-03-17 Patient Doctor 1.2.840.0 [id number] Univers 00:00:00 00:00:00 Secure Msg Unassigned, 93023.1.1 ity of [place] 3.104.2.7 [place] .3.688180 Medica l .8 [place] 2021-03-17 2021-03-17 Patient Doctor 1.2.840.0 [id number] Univers 00:00:00 00:00:00 Secure Msg Unassigned, 94564.1.1 ity of [place] 3.104.2.7 [place] .3.690850 Medica l .8 [place] 2021-03-16 2021-03-16 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 [place] 1.2.840.1 [id number] Univers 13:15:00 13:30:00 Visit Pcp-Lab 45013.1.1 ity of 3.104.2.7 [place] .3.223124 Medica l .8 [place] 2021-03-16 2021-03-16 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 [place] 1.2.840.1 [id number] Univers 13:15:00 13:30:00 Visit Pcp-Lab 08293.1.1 ity of 3.104.2.7 [place] .3.037463 Medica l .8 [place] 2021-03-16 2021-03-16 Outpatient Tonya LOCKWOOD [facility] [id number] Univers 13:15:00 13:15:00 [place] [facility] 2021-03-16 2021-03-16 [facility] [id number] Univers 12:00:00 12:09:[place] [facility] 2021-03-16 2021-03-16 Outpatient Tonya HESTER [facility] [id number] Univers 12:00:00 12:09:51 [facility] 2021-03-16 Outpatient Tonya HESTER [facility] [id number] Univers 12:00:00 12:00:00 UNA HESTER [facility] 2021-03-16 2021-03-16 Travel 1.2.840.1 1.2.208.828 [id number] Univers 00:00:00 00:00:00 09246.1.1 350.1.13.10 ity of 3.104.2.7 4.2.7.3.698 [place] [facility] .3.564795 084.8 Medica l .8 [place] 2021-03-16 2021-03-16 Travel 1.2.840.1 1.2.278.655 [id number] Univers 00:00:00 00:00:00 23626.1.1 350.1.13.10 ity of 3.104.2.7 [place].698 [place]3.934343 084.8 Medica l .8 [place] 2021-03-11 2021-03-11 [facility] [id number] Univers 09:44:00 13:06:00 HALIMA ity of [facility] 2021-03-11 2021-03-11 Emergency Geeta, 1.2.840.2 [id number] Univers 09:44:00 13:06:00 Halima Cates 54247.1.1 ity of 3.104.2.7 [place] .3.506865 Medica l .8 [place] 2021-03-11 2021-03-11 [facility] [id number] Univers 09:44:00 13:06:00 HALIMA ity of [facility] 2021-03-11 2021-03-11 Emergency Geeta, 1.2.840.3 [id number] Univers 09:44:00 13:06:00 Halima Cates 21152.1.1 ity of 3.104.2.7 [place] .3.602192 Medica l .8 [place] 2021-03-11 2021-03-11 Emergency [facility] [id number] Univers 09:44:00 13:06:00 HALIMA ity of [facility] 2021-03-11 2021-03-11 Emergency [facility] [id number] Univers 09:44:00 09:44:00 HALIMA ity of [facility] 2021-03-11 2021-03-11 Travel 1.2.840.1 1.2.499.835 [id number] Univers 00:00:00 00:00:00 32107.1.1 350.1.13.10 ity of 3.104.2.7 [place].3.698 [place] .3.580098 084.8 Medica l .8 [place] 2021-03-11 2021-03-11 Travel 1.2.840.1 1.2.643.048 [id number] [id number] Univers 00:00:00 00:00:00 23824.1.1 350.1.13.10 ity of 3.104.2.7 [place].3.698 [place] .3.232562 084.8 Medica l .8 [place] 2021-03-08 2021-03-08 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 [place] Lockwood 1.2.840.1 1020 [id number] Univers 15:00:00 15:15:00 Visit Pcp-Lab 20089.1.1 ity of 3.104.2.7 [place] .3.956185 Medica l .8 [place] 2021-03-08 2021-03-08 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 [place] Lock[place] 1.2.840.1 1020 613024 [id number] Univers 15:00:00 15:15:00 Visit Pcp-Lab 03963.1.1 ity of 3.104.2.7 [place] .3.414011 Medica l .8 [place] 2021-03-08 2021-03-08 Outpatient R FABIÁN, [facility] [id number] Univers 15:00:00 15:00:00 RALEIGH ity [facility] 2021-01-31 2021-01-31 Outpatient R SELF, [facility] [id number] Univers 10:15:00 10:55:[address] [facility] 2020-12-29 2020-12-29 Outpatient R SELF, [facility] [id number] Univers 08:00:00 08:41:[address] [facility] 2020-12-29 2020-12-29 Outpatient R SELF, [facility] [id number] Univers 08:00:00 08:41:00 DERRELL lupillo o [facility] 2020-12-29 2020-12-29 Travel 1.2.840.1 1.2.984.413 [id number] Univers 00:00:00 00:00:00 69520.1.1 350.1.13.10 ity of 3.104.2.7 4.[place]7.3.698 [place] .3.417913 084.8 Medica l .8 [place] 2020-12-29 2020-12-29 Travel 1.2.840.1 1.2.958.646 [id number] Univers 00:00:00 00:00:00 87119.1.1 350.1.13.10 ity of 3.104.2.7 [place]7.3.698 [place] .3.888101 084.8 Medica l .8 [place] 2020-12-22 2020-12-22 Outpatient R SELF, [facility] [id number] Univers 09:30:00 09:30:[address] [facility] 2020-12-22 2020-12-22 Outpatient R SELF, [facility] [id number] Univers 09:30:00 09:30:00 DERRELL walters [facility] 2020-11-10 2020-11-10 Outpatient R SHE, [facility] [id number] Univers 09:30:00 09:30:00 [facility] 2020-11-10 2020-11-10 Orders Doctor 1.2.840.9 [id number] Univers 00:00:00 00:00:00 Only Unassigned, 29144.1.1 ity of [place] 3.104.2.7 [place] .3.730636 Medica l .8 [place] 2020-11-10 2020-11-10 Travel 1.2.840.1 1.2.293.988 [id number] Univers 00:00:00 00:00:00 99683.1.1 350.1.13.10 ity of 3.104.2.7 4.[place]7.3.698 [place] .3.654931 084.8 Medica l .8 [place] 2020-10-11 2020-10-11 Outpatient R SELF, [facility] [id number] Univers 08:00:00 08:00:00 DERRELL walters [facility] 2020-10-11 2020-10-11 Travel 1.2.840.1 1.2.046.718 [id number] Univers 00:00:00 00:00:00 82659.1.1 350.1.13.10 ity of 3.104.2.7 [place]7.3.698 [place] .3.364664 084.8 Medica l .8 [place] 2020-09-13 2020-09-13 Outpatient R SELF, [facility] [id number] Univers 08:00:00 08:00:00 DERRELL ity o f [facility] 2020-09-13 2020-09-13 Travel 1.2.840.1 1.2.915.824 [id number] Univers 00:00:00 00:00:00 38176.1.1 350.1.13.10 ity of 3.104.2.7 4.[place]7.3.698 [place] .3.213644 084.8 Medica l .8 [place] 2020-09-02 2020-09-02 Emergency Rose, [facility] 1.2.840.114 [id number] 16:12:00 20:21:00 Patti Gillespie 350.1.13.10 [place] 4.2.7.2.686 [place] [id number] 084 2020-09-02 2020-09-02 Emergency Rose, 1.2.840.1 [id number] [facility] 16:12:00 20:21:00 Patti 47151.1.1 ity of 3.104.2.7 [place] .3.200513 Medica l .8 [place] 2020-09-02 2020-09-02 Orders Doctor MOO 1.2.840.114 [id number] 00:00:00 00:00:00 Only Unassigned, QUITA 350.1.13.10 [place] [facility] 4.2.7.2.686 [id number] 009 2020-09-02 2020-09-02 Travel 1.2.840.1 1.2.094.244 [id number] [id number] Univers 00:00:00 00:00:00 40577.1.1 350.1.13.10 ity of 3.104.2.7 [place]3.698 [place] .3.820826 084.8 Medica l .8 [place] 2020-09-02 2020-09-02 Orders Doctor 1.2.840.9 [id number] Univers 00:00:00 00:00:00 Only Unassigned, 33662.1.1 ity of [place] 3.104.2.7 [place] .3.688426 Medica l .8 [place] 2020-08-25 2020-08-25 Outpatient R [facility] [id number] Univers 09:15:00 09:15:00 [facility] 2020-08-09 2020-08-09 Outpatient R SELF, [facility] [id number] Univers 08:45:00 08:45:00 DERRELL walters [facility] 2020-06-28 2020-06-28 Outpatient R FABIÁN, [facility] [id number] Univers 13:45:00 13:45:00 [facility] 2020-06-21 2020-06-21 Outpatient R SELF, [facility] [id number] Univers 15:15:00 15:15:00 DERRELL walters [facility] 2020-06-07 2020-06-07 Outpatient R SELF, [facility] [id number] Univers 08:45:00 08:45:00 DERRELL walters [facility] 2020-05-25 2020-05-25 Outpatient R MICHELLE, [facility] [id number] Univers 08:30:00 08:30:00 CRISTO [facility] 2020-03-15 2020-03-15 Outpatient R FABIÁN, [facility] [id number] Univers 13:00:00 13:00:00 [facility] 2020-03-08 2020-03-08 Outpatient R SELF, [facility] [id number] Univers 13:00:00 13:00:00 DERRELL walters [facility] 2020-02-16 2020-02-16 Outpatient R SELF, [facility] [id number] Univers 11:00:00 11:00:00 DERRELL walters [facility] 2020-01-27 2020-01-27 Outpatient R SELF, [facility] [id number] Univers 11:45:00 11:45:00 DERRELL martinez [facility] 2020-01-19 2020-01-19 Outpatient R SELF, [facility] [id number] Univers 08:00:00 08:00:00 DERRELL martinez [facility] 2019-12-22 2019-12-22 Outpatient R SELF, [facility] [id number] Univers 08:45:00 08:45:00 DERRELL martinez [facility] 2019-12-05 2019-12-05 Outpatient R ALEISHA, [facility] [id number] Univers 10:45:00 10:45:00 PRISCA [facility] 2019-10-23 2019-10-23 Outpatient R SANDY, [facility] [id number] Univers 09:15:00 09:15:00 KATH [facility] 2019-10-15 2019-10-15 Outpatient R SHE, [facility] [id number] Univers 11:30:00 11:30:00 ROBERT [facility] 2019-10-01 2019-10-01 Outpatient R SHE, [facility] [id number] Univers 14:30:00 14:30:00 ROBERT [facility] 2019-09-01 2019-09-01 Outpatient R SELF, [facility] [id number] Univers 08:45:00 08:45:00 DERRELL martinez [facility] 2019-08-06 2019-08-06 Outpatient R SHALOM, [facility] [id number] Univers 13:00:00 13:00:00 ANGELA [facility] Results Test Description Test Time Test Comments Results Result Comments Source LITHIUM 2022-07-26 17:27:33 Test Item Value Reference Range Interpretation Comme nts [place] (test code = 2754548643) 0.3 mmol/L 0.6-1.2 L ZAIN[place] (test code = ZAINAB) Toxic Range: ? Greater than 1.2 mmol/L Lab Interpretation (test code = 75937-0) [facility] Test Item Value Reference Range Interpretation Comments [place] (test code = 0.3 mmol/L 0.6-1.2 L 6657816200) ZAINAB (test code = ZAINAB) Toxic Range: ? Greater than 1.2 mmol/L Lab Interpretation (test Abnormal code = 39675-6) [facility]2023-06-14 17:27:33 Test Item Value Reference Range Interpretation Comments [place] (test code = 0.3 mmol/L 0.6-1.2 L 4522141769) ZAINAB (test code = ZAINAB) Toxic Range: ? Greater than 1.2 mmol/L Lab Interpretation (test Abnormal code = 91750-5) [facility]2023-06-14 17:27:33 Test Item Value Reference Range Interpretation Comments [place] (test code = 0.3 mmol/L 0.6-1.2 L 5366850780) ZAINAB (test code = ZAINAB) Toxic Range: ? Greater than 1.2 mmol/L Lab Interpretation (test Abnormal code = 07692-8) [facility]2023-06-14 17:27:33 Test Item Value Reference Range Interpretation Comments [place] (test code = 0.3 mmol/L 0.6-1.2 L 2292545666) ZAINAB (test code = ZAINAB) Toxic Range: ? Greater than 1.2 mmol/L Lab Interpretation (test Abnormal code = 09069-4) [facility]2023-06-14 17:27:33 Test Item Value Reference Range Interpretation Comments [place] (test code = 0.3 mmol/L 0.6-1.2 L 9443069857) ZAINAB (test code = ZAINAB) Toxic Range: ? Greater than 1.2 mmol/L Lab Interpretation (test Abnormal code = 61127-1) [facility]2023-06-14 17:27:33 Test Item Value Reference Range Interpretation Comments [place] (test code = 0.3 mmol/L 0.6-1.2 L 5386683174) ZAINAB (test code = ZAINAB) Toxic Range: ? Greater than 1.2 mmol/L Lab Interpretation (test Abnormal code = 98781-3) [facility]2023-06-14 17:27:33 Test Item Value Reference Range Interpretation Comments [place] (test code = 0.3 mmol/L 0.6-1.2 L 5401948622) ZAINAB (test code = ZAINAB) Toxic Range: ? Greater than 1.2 mmol/L Lab Interpretation (test Abnormal code = 29041-2) [facility]2023-06-14 17:27:33 Test Item Value Reference Range Interpretation Comments [place] (test code = 0.3 mmol/L 0.6-1.2 L 6940196739) ZAINAB (test code = ZAINAB) Toxic Range: ? Greater than 1.2 mmol/L Lab Interpretation (test Abnormal code = 96836-1) [facility]2023-01-04 20:05:22 Test Item Value Reference Range Interpretation Comments [place] (test code = 1.1 mmol/L 0.6-1.2 6090780085) ZAINAB (test code = ZAINAB) Toxic Range: ? Greater than 1.2 mmol/L Lab Interpretation (test Normal code = 68061-0) [facility]2023-01-04 20:05:22 Test Item Value Reference Range Interpretation Comments [place] (test code = 1.1 mmol/L 0.6-1.2 9575929514) ZAINAB (test code = ZAINAB) Toxic Range: ? Greater than 1.2 mmol/L Lab Interpretation (test Normal code = 93933-0) [facility]2023-01-04 20:05:22 Test Item Value Reference Range Interpretation Comments [place] (test code = 1.1 mmol/L 0.6-1.2 5843361430) ZAINAB (test code = ZAINAB) Toxic Range: ? Greater than 1.2 mmol/L Lab Interpretation (test Normal code = 63844-7) [facility]2023-01-04 20:05:22 Test Item Value Reference Range Interpretation Comments [place] (test code = 1.1 mmol/L 0.6-1.2 2642672629) ZAINAB (test code = ZAINAB) Toxic Range: ? Greater than 1.2 mmol/L Lab Interpretation (test Normal code = 52951-8) [facility]2023-01-04 20:05:22 Test Item Value Reference Range Interpretation Comments [place] (test code = 1.1 mmol/L 0.6-1.2 6301005594) ZAINAB (test code = ZAINAB) Toxic Range: ? Greater than 1.2 mmol/L Lab Interpretation (test Normal code = 67077-8) [facility]2023-01-04 20:05:22 Test Item Value Reference Range Interpretation Comments [place] (test code = 1.1 mmol/L 0.6-1.2 5367516498) ZAINAB (test code = ZAINAB) Toxic Range: ? Greater than 1.2 mmol/L Lab Interpretation (test Normal code = 80679-8) [facility]2023-01-04 20:05:22 Test Item Value Reference Range Interpretation Comments [place] (test code = 1.1 mmol/L 0.6-1.2 8211012854) AZINAB (test code = ZAINAB) Toxic Range: ? Greater than 1.2 mmol/L Lab Interpretation (test Normal code = 86245-6) [facility]2023-01-04 20:05:22 Test Item Value Reference Range Interpretation Comments [place] (test code = 1.1 mmol/L 0.6-1.2 0575506196) ZAINAB (test code = ZAINAB) Toxic Range: ? Greater than 1.2 mmol/L Lab Interpretation (test Normal code = 31780-0) [facility]2023-01-04 20:05:22 Test Item Value Reference Range Interpretation Comments [place] (test code = 1.1 mmol/L 0.6-1.2 4139019668) ZAINAB (test code = ZAINAB) Toxic Range: ? Greater than 1.2 mmol/L Lab Interpretation (test Normal code = 18093-0) [facility]2023-01-04 20:05:22 Test Item Value Reference Range Interpretation Comments [place] (test code = 1.1 mmol/L 0.6-1.2 6138414952) ZAINAB (test code = ZAINAB) Toxic Range: ? Greater than 1.2 mmol/L Lab Interpretation (test Normal code = 71181-1) [facility]2018-07-20 07:27:00 Test Item [...] VERY HIGH.........>/ = 190 mg/dL Comments to Display Artist: ADD TO AM LABSLIPID PROFILE (CORONARY RISK)2018-07-20 [...] MG/DL 0-99 code = LDL) Comments to Display Artist: ADD TO AM LABSPROTHROMBIN [id number] 06:24:00 Test Item Value Reference Range Interpretation [...] myocar dial infarction. 2.0 - 3.0 3. Neuropathologist al prosthesis hear t valves, recurre nt systemic emboli sm. 3.0 - 4.5 Comments to Display Artist: NURSE WILL BRING SPECIMEN TO LABPTT ACTIVATED 2018-07-20 06:24:00 Test Item Value Reference Range Interpretation Comments PTT ACTIVATED (test code = APTT) 29.3 SECONDS 22.0-33.0 N Comments to Display Artist: NURSE WILL BRING SPECIMEN TO LABBASIC METABOLIC [...] 9.6 MG/DL 8.4-10.2 N CA) Comments to Display Artist: NURSE WILL BRING SPECIMEN TO LAB Comments to Display Artist: NURSE WILL BRING SPECIMEN TO [id number] 06:13:00 Test Item Value Reference Range Interpretation Comments MAGNESIUM (test code = MAG) 2.2 MG/DL 1.6-2.3 N Comments to Display Artist: NURSE WILL BRING SPECIMEN TO LAB Comments to Display Artist: NURSE WILL BRING SPECIMEN TO LABCBC W/AUTO [id number] 06:02:00 Test Item Value Reference Range Interpretation [...] Notes Date/Time Note Provider Source 2018-07-20 06:55:00-00:00 [id number] [facility] [address] [place] [address] PATIENT NAME: UDAY SCHULER ADMIT DATE: 07/20/18 ACCOUNT NO: [id number] ROOM NO: AGE: 43 REPORT TYPE: CARDIAC CATHETERIZATION REPORT SEX: F ADMITTING PHYSICIAN: ATTENDING PHYSICIAN:Rosa Harper MD PROCEDURE DATE: 07/20/2018 ODD JOB LABORER: Rosa Harper MD TITLE OF THE PROCEDURE: [...] emoral artery area for local anesthesia. A 6-Nepali sheath was placed in the right common [...] complications. She was transferred back to the [facility] area for observation to be discharged later on today on medical therapy PATIENT NAME: UDAY SCHULER ACCOUNT #: Z [id number] and risk factor modification. Dictated By: Rosa Harper MD WT: CATH:ADRIANA/KIAN/RIGOBERTO Conf#: [id number]/DID#: [id number] Authenticated by Rosa aHrper MD On 09/2018 08:15:22 AM at 0815 PATIENT NAME: UDAY SCHULER ACCOUNT #: Z [id number] 2018-07-20 06:06:00-00:00 [id number] [place] [address] PATIENT NAME: UDAY SCHULER ADMIT DATE: 07/20/18 ACCOUNT NO: [id number] ROOM NO: AGE: 43 REPORT TYPE: ELECTROCARDIOGRAM SEX: F ADMITTING PHYSICIAN: ATTENDING PHYSICIAN:Rosa Harper MD Order: [id number] Test Reason : CAD Test Date/Time Stamp: [...] PATIENT NAME: UDAY SCHULER ACCOUNT #: Z [id number] 2018-07-19 18:55:00-00:00 2514-[address] [place] [address] PATIENT NAME: UDAY SCHULER ADMIT DATE: 07/20/18 ACCOUNT NO: [id number] ROOM NO: AGE: 43 REPORT TYPE: HISTORY AND PHYSICAL SEX: F ADMITTING PHYSICIAN: ATTENDING PHYSICIAN:Rosa Harper MD ADMISSION DATE: 07/20/2018 ODD JOB LABORER: Rosa Harper MD REASON FOR ADMISSION: Chest [...] The patient does not smoke or us [employer] street drugs or drinks alcohol. FAMILY HISTORY: [...] PATIENT NAME: UDAY SCHULER ACCOUNT #: Z [id number] HEENT: Head, atraumatic and normocephalic. Eyes and [...] By: Rosa Harper MD WT: HP:TRAVIS/KIAN/RIGOBERTO Conf#: [id number]/DID#: [id number] Authenticated by Rosa Harper MD On 07/13 07:20:46 AM at 0721 PATIENT NAME: UDAY SCHULER ACCOUNT #: Z [id number]
[2022-09-30] MEDS ORDERED: LORazepam 2 MG/ML VIAL ONE (00:17)
[2022-09-30 00:38] LABS: Absolute Lymphocytes (CBC) 2.1 K/uL (0.7-4.9); Hematocrit 26.6 % (36.0-45.0); Lymphocytes % 22.8 % (15.3-44.8); MCV 69.3 fL (80-100); MPV 8.7 fL (7.6-11.3); Platelets 265 thou/uL (152-406); RBC Red Blood Cell Count 3.84 M/uL (3.86-4.86)
[2022-09-30 00:56] LABS: Albumin 3.2 g/dL (3.4-5.0); Bilirubin Total 0.2 mg/dL (0.2-1.0); Magnesium 2.3 mg/dL (1.6-2.4); Potassium 3.3 mEq/L (3.5-5.1); Protein, Total 6.4 g/dL (6.4-8.2); Thyroid Stimulating Hormone 2.24 uIU/mL (0.358-3.740); Troponin High Sensitivity 5.9 pg/mL (<58.9)
--- NOTE | 2022-09-30 01:03 | EDPHYS ---
Physician Documentation [facility] Name: Shivani Lagunas Age: 47 yrs Sex: Female : 1975 Arrival Date: 09/29/2022 Time: 23:06 Bed 13 Private MD: ED Physician Yolanda Hardy HPI: 09/29 23:43 This 47 yrs old Female presents to ER via EMS with complaints of Chest Pain. sd2 23:43 47 yo F presents via EMS with CC of chest fluttering and pressure that started at 1600 sd2 and has progressively worsened since then. Pt reports associated lightheadedness and worsening anxiety over the past 2 days that she had to double her dose of Klonopin for at home last night. Has not taken the medication today. Also prior history of PVCs and "arrhythmia" she was on Propanolol 2x daily for but stopped taking 6 months ago as she has not followed back up with her reading teacher for a refill. States this medication used to keep these episodes under control but she is not sure if this could be her anxiety as well.. Historical: - Allergies: 23:20 Sulfa (Sulfonamide Antibiotics); cm10 - PMHx: 23:20 Bipolar disorder; Hypertensive disorder; Schizophrenia; cm10 - PSHx: 23:20 Cholecystectomy; section; cm10 - Immunization history:: Adult Immunizations unknown. - Social history:: Smoking status: unknown. ROS: 23:43 Constitutional: Negative for fever, chills, and weight loss, Eyes: Negative for injury, sd2 pain, redness, and discharge, Cardiovascular: Positive for chest pain, palpitations, and negative fro edema, Respiratory: Positive for shortness of breath, Negative for cough, wheezing. Abdomen/GI: Negative for abdominal pain, nausea, vomiting, diarrhea. MS/Extremity: Negative for injury and deformity, Skin: Negative for injury, rash, and discoloration, Neuro: Negative for headache, numbness and tingling. 23:43 Psych: Positive for Anxiety. Negative for depression, suicide ideation, homicidal sd2 ideation, and hallucinations. Exam: 23:43 Constitutional: This is a well developed, well nourished patient who is awake, alert, sd2 and in no acute distress. Head/Face: Normocephalic, atraumatic. Eyes: EOMI, normal conjunctiva bilaterally Chest/axilla: Normal chest wall appearance and motion. Nontender with no deformity. Cardiovascular: Regular rate and rhythm with a normal S1 and S2. No gallops, murmurs, or rubs. 2+ distal pulses. Respiratory: Lungs have equal breath sounds bilaterally, clear to auscultation and percussion. No rales, rhonchi or wheezes noted. No increased work of breathing, no retractions or nasal flaring. Abdomen/GI: Soft, non-tender, with normal bowel sounds. No guarding or rebound. No evidence of tenderness throughout. Skin: Warm, dry with normal turgor. Normal color with no rashes, no lesions, and no evidence of cellulitis. MS/ Extremity: Pulses equal, no cyanosis. Neurovascular intact. Full, normal range of motion. Ambulatory without difficulty. Psych: Awake, alert, with orientation to person, place and time. Behavior, mood, and affect are within normal limits. 09/30 00:18 ECG was reviewed by the Attending Physician. NSR, rate 78, no STEMI criteria sd2 Vital Signs: 09/29 23:19 BP 157 / 74; Pulse 78; Resp 18; Pulse Ox 99% ; Pain 8/10; cm10 09/30 00:00 BP 137 / 71; Pulse 71; Pulse Ox 100% ; fu 00:30 BP 131 / 70; Pulse 66; Resp 16; Pulse Ox 100% ; fu 01:00 BP 129 / 65; Pulse 66; Resp 17; Pulse Ox 100% ; Pain 3/10; fu 09/29 23:19 Pain Scale: Adult cm10 01:00 Pain Scale: Adult fu MDM: 09/29 23:10 Patient medically screened. sd2 23:43 Differential diagnosis: Differential diagnosis includes but is not limited to: ACS, sd2 DVT/PE, pneumothorax, dissection, musculoskeletal, anxiety, anemia, electrolyte abnormality, pneumonia, CHF, COPD among others. The patient was not given aspirin in the Emergency Department. Patient reports taking aspirin within the past 24 hours. Data reviewed: vital signs, nurses notes, EMS record, lab test result(s), EKG, radiologic studies. I considered the following discharge prescriptions or medication management in the emergency department Medications were administered in the Emergency Department. See MAR. Historians other than the Patient: EMS: Provides initial report. 09/30 01:00 HEART Score: History: Slightly Suspicious (0), ECG: Normal (0), Age: < or = 45 years sd2 (0), Risk Factors: 1 or 2 risk factors (1), Troponin: < or = 1 x Normal Limit (0), Total Score = 1. Consideration of Admission/Observation Escalation of care including admission/observation considered. Care significantly affected by the following chronic conditions: Hypertension, Anxiety. Counseling: I had a detailed discussion with the patient and/or guardian regarding the historical points, exam findings, and any diagnostic results supporting the discharge/admit diagnosis, lab results, radiology results, the need for outpatient follow up, to return to the emergency department if symptoms worsen or persist or if there are any questions or concerns that arise at home. ED course: Pt much improved after treatment with Ativan. Under increased stress recently. Is on multiple mood stabilizing medications. Will follow up with her psychiatrist for adjustment due to these increased anxiety episodes. PERC neg. Trop neg. EKG with no significant changes. CXR with no acute abnormality. She is comfortable with plan for discharge and outpatient follow up and verbalizes understanding of strict return precautions. . 09/29 23:43 Order name: CBC with Diff; Complete Time: 01:00 09/29 23:43 Order name: CMP; Complete Time: 01:00 09/29 23:43 Order name: Magnesium; Complete Time: 01:00 09/29 23:43 Order name: Troponin High Sensitivity; Complete Time: 01:00 09/29 23:43 Order name: BNP; Complete Time: 01:00 09/29 23:43 Order name: TSH; Complete Time: 01:00 09/29 23:43 Order name: T4 Free; Complete Time: 01:00 09/29 23:43 Order name: XRAY Chest (1 view) 2 09/29 23:43 Order name: EKG - Nurse/Tech; Complete Time: 00:08 Administered Medications: 00:21 Drug: Ativan IVP 1 mg Route: IVP; Site: right hand; fu 01:04 Follow up: Response: No adverse reaction fu Disposition Summary: 09/30/22 01:02 Discharge Ordered Location: Home sd2 Problem: an acute exacerbation sd2 Symptoms: have improved sd2 Condition: Stable sd2 Diagnosis - Palpitations sd2 - Chest pressure sd2 - Anxiety sd2 Followup: sd2 - With: Private Physician - When: 2 - 3 days - Reason: Recheck today's complaints, Continuance of care, Re-evaluation by your physician Discharge Instructions: - Discharge Summary Sheet sd2 - Nonspecific Chest Pain, Adult sd2 - Palpitations sd2 - Managing Anxiety, Adult sd2 Forms: - Medication Reconciliation Form sd2 - Thank You Letter sd2 - Antibiotic Education sd2 - Prescription Opioid Use sd2 - Patient Portal Instructions sd2 - Leadership Thank You Letter sd2 Signatures: Dispatcher [employer] EDKristopher Tay, RN Yolanda Pena MD MD sd2 Mireya Godoy RN RN cm10
--- NOTE | 2022-09-30 01:03 | ER ---
Nurse's Notes [facility] [place], [place] Name: Shivani Lagunas Age: 47 yrs Sex: Female : 1975 Arrival Date: 09/29/2022 Time: 23:06 Bed 13 Private MD: Diagnosis: Palpitations;Chest pressure;Anxiety Presentation: 09/29 23:19 Chief complaint: EMS states: chest pressure and tightness onset today at 1600. Pt state cm10 that the pressure is to the center of her chest and radiates to her back between her shoulder blades. Pt rates the pain an 8/10. Pt received ASA 324mg [employer]. Coronavirus screen: Vaccine status: Patient reports receiving the 2nd dose of the covid vaccine. Ebola Screen: Patient denies travel to an Ebola-affected area in the 21 days before illness onset. No symptoms or risks identified at this time. Initial Sepsis Screen: Does the patient meet any 2 criteria? No. Patient's initial sepsis screen is negative. Does the patient have a suspected source of infection? No. Patient's initial sepsis screen is negative. Risk Assessment: Do you want to hurt yourself or someone else? Patient reports no desire to harm self or others. Onset of symptoms was September 29, 2022. 23:19 Method Of Arrival: EMS: [facility] 10 23:19 Acuity: ALICIA 2 cm10 23:21 Care prior to arrival: Medication(s) given: ASA, 81 mg, x 4, IV initiated. 20 GA, in cm10 the right hand. Historical: - Allergies: 23:20 Sulfa (Sulfonamide Antibiotics); cm10 - PMHx: 23:20 Bipolar disorder; Hypertensive disorder; Schizophrenia; cm10 - PSHx: 23:20 Cholecystectomy; section; cm10 - Immunization history:: Adult Immunizations unknown. - Social history:: Smoking status: unknown. Screenin:20 [facility] ED Fall Risk Assessment (Adult) History of falling in the last 3 months, pf1 including since admission No falls in past 3 months (0 pts) Confusion or Disorientation No (0 pts) Intoxicated or Sedated No (0 pts) Impaired Gait No (0 pts) Mobility Assist Device Used No (0 pt) Altered Elimination No (0 pt) Score/Fall Risk Level 0 - 2 = Low Risk Oriented to surroundings, Maintained a safe environment, Educated pt \T\ family on fall prevention, incl call for assistance when getting out of bed, Assessed \T\ reinforced patient's understanding of fall precautions, Provided non-skid footwear, Hourly rounding (assess needs \T\ fall precautionary measures) done, Used ambulatory aids as needed (educated on \T\ assisted with), Used gait belt as appropriate. 23:20 Abuse screen: Denies threats or abuse. Nutritional screening: No deficits noted. pf1 Tuberculosis screening: No symptoms or risk factors identified. Assessment: 23:20 General: Appears in no apparent distress. Behavior is appropriate for age. Pain: fu Complains of pain in chest Pain radiates to back Pain currently is 6 out of 10 on a pain scale. Pain began 3 hours ago. Cardiovascular: Reports chest pain, Denies nausea, vomiting. Respiratory: Airway is patent Respiratory effort is even, unlabored, Respiratory pattern is regular, Denies pain with respiration. 09/30 00:30 Reassessment: Patient and/or family updated on plan of care and expected duration. Pain fu level reassessed. Patient is alert, oriented x 3, equal unlabored respirations, skin warm/dry/pink. 01:00 Reassessment: Patient and/or family updated on plan of care and expected duration. Pain fu level reassessed. Patient is alert, oriented x 3, equal unlabored respirations, skin warm/dry/pink. Patient states feeling better. Vital Signs: 09/29 23:19 BP 157 / 74; Pulse 78; Resp 18; Pulse Ox 99% ; Pain 8/10; cm10 09/30 00:00 BP 137 / 71; Pulse 71; Pulse Ox 100% ; fu 00:30 BP 131 / 70; Pulse 66; Resp 16; Pulse Ox 100% ; fu 01:00 BP 129 / 65; Pulse 66; Resp 17; Pulse Ox 100% ; Pain 3/10; fu 09/29 23:19 Pain Scale: Adult cm10 01:00 Pain Scale: Adult fu ED Course: 09/29 23:08 Patient arrived in ED. [id number] 23:10 Yolanda Hardy MD is Attending Physician. sd2 23:13 Kristopher Mckenna, AMANDA is Primary Nurse. fu 23:20 Triage completed. cm10 23:20 Patient has correct armband on for positive identification. Placed in gown. Bed in low pf1 position. Call light in reach. 23:20 No provider procedures requiring assistance completed. Patient maintains SpO2 pf1 saturation greater than 95% on room air. 23:20 Maintain EMS IV. Dressing intact. Good blood return noted. Site clean \T\ dry. Gauge \T\ pf 1 site: 20 gauge to right hand. 23:21 Arm band placed on Patient placed in an exam room, on a stretcher. EKG completed in cm10 triage. Results shown to MD. 09/30 00:18 XRAY Chest (1 view) In Process Unspecified. EDMS 01:19 IV discontinued, intact, bleeding controlled, No redness/swelling at site. Pressure pf1 dressing applied. Administered Medications: 00:21 Drug: Ativan IVP 1 mg Route: IVP; Site: right hand; fu 01:04 Follow up: Response: No adverse reaction fu Medication: 01:19 VIS not applicable for this client. pf1 Outcome: 01:02 Discharge ordered by MD. sd2 01:18 Discharged to home ambulatory, with family. pf1 01:18 Condition: improved 01:18 Discharge instructions given to patient, Instructed on discharge instructions, follow up and referral plans. Demonstrated understanding of instructions, follow-up care. 01:20 Patient left the ED. fu Signatures: Dispatcher [employer] EDMS Kristopher Mckenna, RN Kiana Cuellar Stephanie, MD MD sd2 Dora Oliver RN RN pf1 Mireya Godoy RN RN cm10
[2022-09-30 01:41] VITALS: O2SAT 100
[2022-09-30 01:44] VITALS: BP 129/65
--- NOTE | 2022-09-30 14:18 | RAD REPORT ---
EXAM DESCRIPTION: RAD - Chest Single View - 09/30/2022 12:16 am CLINICAL HISTORY: CHEST PAIN. COMPARISON: Chest radiograph from February 11, 2022. TECHNIQUE: Single view AP chest radiograph(s). FINDINGS: The lungs are clear. No pulmonary infiltrate or edema identified. No pleural effusion. N o pneumothorax. Nonenlarged cardiomediastinal silhouette. No significant osseous abnormality. IMPRESSION: No acute cardiopulmonary abnormality identified by radiograph. Electronically signed by: Stephanie Rizvi MD 09/30/2022 12:45 AM CDT Due to temporary technical issues with the PACS/Fluency reporting system, reports are being signed by the in house radiologists without review as a courtesy to insure prompt reporting. The interpreting radiologist is fully responsible for the content of the report.
--- NOTE | 2022-10-02 18:05 | EKG ---
Test Date: 2022-09-29 Test Time: 23:14:57 Privacy Attorney: CASSIA MEASUREMENT RESULTS: Intervals: Rate: 78 AR: 146 QRSD: 100 QT: 412 QTc: 469 [place]: P: 45 AR: 146 QRS: 2 T: 21 INTERPRETIVE STATEMENTS: Normal sinus rhythm Minimal voltage criteria for LVH, may be normal variant Cannot rule out Anterior infarct, age undetermined Abnormal ECG Compared to ECG 09/17/2022 11:22:30 Left ventricular hypertrophy now present Myocardial infarct finding now present Electronically Signed On 10-02-22 17:58:48 CDT by Sony Guillermo
== END 2022-09-30 01:20 | disposition home or self-care (01) ==
LOC: ER 23:06
DX: R07.9 Chest pain, unspecified (principal); R00.2 Palpitations; F41.9 Anxiety disorder, unspecified; I10 Essential (primary) hypertension; F31.9 Bipolar disorder, unspecified; F20.9 Schizophrenia, unspecified; Z88.2 Allergy status to sulfonamides
CPT/HCPCS: 36415; 71045; 80053; 83735; 83880; 84439; 84443; 84484; 85025; 93005; 96374; 99285

== ENCOUNTER 2022-10-03 18:20 | Emergency (ER) | payer OTHER ==
--- OUTSIDE RECORDS SUMMARY | 2022-10-03 18:28 | XMS REPORT | Continuity of Care Document ---
:1975 Author Organization [facility] t Address [address] [place] [address] [address] [place] [address] Care Team Providers Name Role Phone PCP, PATIENT DOES NOT HAVE A Primary Care Physician Unavaila UNA Thorne Attending Clinician Unavailable UNA HESTER Attending Clinician Unavailable Pathology Attending Clinician Unavailable Pcp-Lab Attending Clinician Unavailable Doctor Unassigned, [place] Attending Clinician Unavailable DERRELL DIAS Attending Clinician [...] Attending Clinician RALEIGH LOCKWOOD Attending Clinician Unavailable AHLIMA CONNOR Attending Clinician Unavailable Halima Connor DO Attending Clinician ROBERT NOWAK Attending Clinician Unavailable Patti Hutton Attending Clinician CRISTO MARTINEZ Attending Clinician Unavailable PRISCA MORAES Attending Clinician Unavailable KATH DELGADO Attending Clinician Unavailable ANGELA RAUSCH Attending Clinician Unavailable Payers Payer Name Policy Type Policy Number Effective Date Expiration Date S osman [facility] [id number] 2022 BEHAVIORAL 00:00:00 SOLUTIONS MEDICAID SSI PENDING 2021 PENDING 00:00:00 Problems Condition Condition Condition Status Onset Resolution Last Treating Co mments Source Name Details Category Date Date Treatment Clinician Date No known No known Disease Unive rs active active ity of problems problems [facility] Allergies, Adverse Reactions, Alerts Allergy Allergy Status [...] Quantity Comments Source Gender identity [facility]it y [facility] Sexual orientation Univer [facility] History of Social 2022-07-26 2022-07-26 Univers ity of function 00:00:00 00:00:00 [facility] Exposure to 2022-02-05 2022-02-15 Not sure [facility] SARS-CoV-2 (event) 00:00:00 08:57:00 [facility] Tobacco use and 2021-08-24 2021-08-24 Smokeless Universit y of exposure 00:00:00 00:00:00 tobacco non-user [facility] Sex Assigned [birth year] Univers[facility] of 00:00:00 00:00:00 [facility] Smoking Status Start Date Stop Date Source Never smoked tobacco [facility] Medications Ordered Filled Start Stop Current Ordering Indication Dosage Frequency Signature Comments Components Source Medication Medication Date Date Medication? Clinician (SIG) Name Name clonazePAM Yes [id number] Take 1 U nivers 1 mg tablet 8-17 tablet by ity of 00:00: mouth [place] 00 twice Medical daily as Branch needed for anxiety. DULoxetine 3-0 Yes [id number] 60mg Take 1 U nivers 60 mg 8-15 capsule by ity of capsule 00:00: mouth in [place] 00 the Medical morning Branch and 1 capsule in the evening. DULoxetine 3-0 Yes [id number] 60mg Take 1 U nivers 60 mg 8-15 capsule by ity of capsule 00:00: mouth in [place] 00 the Medical morning Branch and 1 capsule in the evening. lithium 2022-0 Yes [id number] 900mg Take 2 Uni vers carbonate 8-02 tablets by ity of CR 450 mg 00:00: [place] tablet 00 bedtime. Medica l Branch busPIRone 2022-0 Yes [id number] 10mg Take 1 Un cristhian 10 mg 8-02 tablet by ity of tablet 00:00: mouth in [place] 00 the Medical morning Branch and 1 tablet in the evening. lamoTRIgine 2022-0 Yes [id number] 100mg Take 1 Univers 100 mg 8-02 tablet by ity of tablet 00:00: mouth in [place] 00 the [facility] morning Branch and 1 tablet in the evening. lithium 2022-0 Yes [id number] 900mg Take 2 Uni vers carbonate 8-02 tablets by ity of CR 450 mg 00:00: [place] tablet 00 bedtime. Medica l Branch busPIRone 3-0 Yes [id number] 10mg Take 1 Un cristhian 10 mg 8-02 tablet by ity of tablet 00:00: mouth in [place] 00 the Medical morning Branch and 1 tablet in the evening. lamoTRIgine 3-0 Yes [id number] 100mg Take 1 Univers 100 mg 8-02 tablet by ity of tablet 00:00: mouth in [place] 00 the [facility] morning Branch and 1 tablet in the evening. lithium 3-0 Yes [id number] 900mg Take 2 Uni vers carbonate 8-02 tablets by ity of CR 450 mg 00:00: [place] tablet 00 bedtime. Medica l Branch busPIRone 3-0 Yes [id number] 10mg Take 1 Un cristhian 10 mg 8-02 tablet by ity of tablet 00:00: mouth in [place] 00 the Medical morning Branch and 1 tablet in the evening. lamoTRIgine 2023-0 Yes [id number] 100mg Take 1 Univers 100 mg 8-02 tablet by ity of tablet 00:00: mouth in [place] 00 the Medical morning Branch and 1 tablet in the evening. clonazePAM 2023-0 Yes [id number] Take 1 U nivers 1 mg tablet 7-19 tablet by ity of 00:00: mouth [place] 00 twice Medical daily as Branch needed for anxiety. clonazePAM 2023-0 Yes [id number] Take 1 U nivers 1 mg tablet 7-19 tablet by ity of 00:00: mouth [place] 00 twice Medical daily as Branch needed for anxiety. clonazePAM 2023-0 Yes [id number] Take 1 U nivers 1 mg tablet 7-19 tablet by ity of 00:00: mouth [place] 00 twice Medical daily as Branch needed for anxiety. clonazePAM 2023-0 Yes [id number] Take 1 U nivers 1 mg tablet 7-19 tablet by ity of 00:00: mouth [place] 00 twice Medical daily as Branch needed for anxiety. clonazePAM 2023-0 Yes [id number] Take 1 U nivers 1 mg tablet 7-19 tablet by ity of 00:00: mouth [place] 00 twice Medical daily as Branch needed for anxiety. clonazePAM 2023-0 Yes [id number] Take 1 U nivers 1 mg tablet 7-19 tablet by ity of 00:00: mouth [place] 00 twice Medical daily as Branch needed for anxiety. clonazePAM 2023-0 2023- No [id number] Take 1 Univers 1 mg tablet 7-19 -14 tablet by it y of 00:00: 00:00 mouth [place] 00 :00 twice Medical daily as Branch needed for anxiety. FUROSEMIDE 2023-0 2023- No 40mg Take 40 mg Univers ORAL 6-14 -14 by mouth ity of 09:33: 00:00 daily. [place] 26 :00 Medical Branch FUROSEMIDE 2023-0 2023- No 40mg Take 40 mg Univers ORAL 6-14 -14 by mouth ity of 09:33: 00:00 daily. [place] 26 :00 Medical Branch FUROSEMIDE 2023-0 2023- No 40mg Take 40 mg Univers ORAL 6-14 -14 by mouth ity of 09:33: 00:00 daily. [place] 26 :00 Medical Branch FUROSEMIDE 2023-0 2023- No 40mg Take 40 mg Univers ORAL 6-14 06-14 by mouth ity of 09:33: 00:00 daily. [place] 26 :00 Medical Branch DULoxetine 3-0 Yes [id number] 60mg Take 1 U nivers 60 mg 6-14 capsule by ity of capsule 00:00: mouth in [place] 00 the Medical morning Branch and 1 capsule in the evening. lamoTRIgine 3-0 Yes [id number] 100mg Take 1 Univers 100 mg 6-14 tablet by ity of tablet 00:00: mouth in [place] 00 the Medical morning Branch and 1 tablet in the evening. lithium 3-0 Yes [id number] 900mg Take 2 Uni vers carbonate 6-14 tablets by ity of CR 450 mg 00:00: [place] tablet 00 bedtime. Medica l Branch traZODone 2022-0 Yes [id number] 50mg Take 1 U nivers 50 mg 6-14 tablet by ity of tablet 00:00: mouth at [place] [address] bedtime. Medical May cut Branch tablet in half. busPIRone 3-0 Yes [id number] 10mg Take 1 Un cristhian 10 mg 6-14 tablet by ity of tablet 00:00: mouth in [place] [address] the Medical morning Branch and 1 tablet in the evening. DULoxetine 2022-0 Yes [id number] 60mg Take 1 U nivers 60 mg 6-14 capsule by ity of capsule 00:00: mouth in [place] [address] the [facility] morning Branch and 1 capsule in the evening. lamoTRIgine 3-0 Yes [id number] 100mg Take 1 Univers 100 mg 6-14 tablet by ity of tablet 00:00: mouth in [place] 00 the Medical morning Branch and 1 tablet in the evening. lithium 3-0 Yes 900mg Take 2 Uni vers carbonate 6-14 tablets by ity of CR 450 mg 00:00: [place] tablet 00 bedtime. Medica l Branch traZODone 3-0 Yes [id number] 50mg Take 1 U nivers 50 mg 6-14 tablet by ity of tablet 00:00: mouth at [place] [address] bedtime. Medical May cut Branch tablet in half. busPIRone 3-0 Yes [id number] 10mg Take 1 Un cristhian 10 mg 6-14 tablet by ity of tablet 00:00: mouth in [place] 00 the Medical morning Branch and 1 tablet in the evening. DULoxetine 2023-0 Yes [id number] 60mg Take 1 U nivers 60 mg 6-14 capsule by ity of capsule 00:00: mouth in [place] 00 the Medical morning Branch and 1 capsule in the evening. lamoTRIgine 3-0 Yes [id number] 100mg Take 1 Univers 100 mg 6-14 tablet by ity of tablet 00:00: mouth in [place] 00 the [facility] morning Branch and 1 tablet in the evening. lithium 3-0 Yes [id number] 900mg Take 2 Uni vers carbonate 6-14 tablets by ity of CR 450 mg 00:00: [place] tablet 00 bedtime. Medica l Branch traZODone 3-0 Yes [id number] 50mg Take 1 U nivers 50 mg 6-14 tablet by ity of tablet 00:00: mouth at [place] 00 bedtime. Medical May cut Branch tablet in half. busPIRone 3-0 Yes [id number] 10mg Take 1 Un cristhian 10 mg 6-14 tablet by ity of tablet 00:00: mouth in [place] [address] the [facility] morning Branch and 1 tablet in the evening. DULoxetine 3-0 Yes [id number] 60mg Take 1 U nivers 60 mg 6-14 capsule by ity of capsule 00:00: mouth in [place] [address] the [facility] morning Branch and 1 capsule in the evening. lamoTRIgine 3-0 Yes [id number] 100mg Take 1 Univers 100 mg 6-14 tablet by ity of tablet 00:00: mouth in [place] 00 the [facility] morning Branch and 1 tablet in the evening. lithium 3-0 Yes [id number] 900mg Take 2 Uni vers carbonate 6-14 tablets by ity of CR 450 mg 00:00: [place] tablet 00 bedtime. Medica l Branch traZODone 3-0 Yes [id number] 50mg Take 1 U nivers 50 mg 6-14 tablet by ity of tablet 00:00: mouth at [place] [address] bedtime. Medical May cut Branch tablet in half. busPIRone 3-0 Yes [id number] 10mg Take 1 Un cristhian 10 mg 6-14 tablet by ity of tablet 00:00: mouth in [place] [address] the [facility] morning [place] and 1 tablet in the evening. DULoxetine 3-0 Yes [id number] 60mg Take 1 U nivers 60 mg 6-14 capsule by ity of capsule 00:00: mouth in [place] 00 the Medical morning Branch and 1 capsule in the evening. lamoTRIgine 2023-0 Yes [id number] 100mg Take 1 Univers 100 mg 6-14 tablet by ity of tablet 00:00: mouth in [place] 00 the Medical morning Branch and 1 tablet in the evening. lithium 2023-0 Yes [id number] 900mg Take 2 Uni vers carbonate 6-14 tablets by ity of CR 450 mg 00:00: [place] tablet 00 bedtime. Medica l Branch traZODone 3-0 Yes [id number] 50mg Take 1 U nivers 50 mg 6-14 tablet by ity of tablet 00:00: mouth at [place] [address] bedtime. June cut Branch tablet in half. busPIRone 3-0 Yes [id number] 10mg Take 1 Un cristhian 10 mg 6-14 tablet by ity of tablet 00:00: mouth in [place] 00 the Medical morning Branch and 1 tablet in the evening. DULoxetine 3-0 Yes [id number] 60mg Take 1 U nivers 60 mg 6-14 capsule by ity of capsule 00:00: mouth in [place] [address] the Medical morning Branch and 1 capsule in the evening. lamoTRIgine 3-0 Yes [id number] 100mg Take 1 Univers 100 mg 6-14 tablet by ity of tablet 00:00: mouth in [place] 00 the Medical morning Branch and 1 tablet in the evening. lithium 3-0 Yes [id number] 900mg Take 2 Uni vers carbonate 6-14 tablets by ity of CR 450 mg 00:00: [place] tablet 00 bedtime. Medica l Branch traZODone 3-0 Yes [id number] 50mg Take 1 U nivers 50 mg 6-14 tablet by ity of tablet 00:00: mouth at [place] [address] bedtime. June cut Branch tablet in half. busPIRone 2023-0 Yes [id number] 10mg Take 1 Un cristhian 10 mg 6-14 tablet by ity of tablet 00:00: mouth in [place] [address] the Medical morning Branch and 1 tablet in the evening. DULoxetine 2023-0 Yes [id number] 60mg Take 1 U nivers 60 mg 6-14 capsule by ity of capsule 00:00: mouth in [place] 00 the Medical morning Branch and 1 capsule in the evening. lamoTRIgine 2023-0 Yes [id number] 100mg Take 1 Univers 100 mg 6-14 tablet by ity of tablet 00:00: mouth in [place] 00 the Medical morning Branch and 1 tablet in the evening. lithium 2023-0 Yes [id number] 900mg Take 2 Uni vers carbonate 6-14 tablets by ity of CR 450 mg 00:00: [place] SR tablet 00 bedtime. Medica l Branch traZODone 3-0 Yes [id number] 50mg Take 1 U nivers 50 mg 6-14 tablet by ity of tablet 00:00: mouth at [place] 00 bedtime. June cut Branch tablet in half. busPIRone 2023-0 Yes [id number] 10mg Take 1 Un cristhian 10 mg 6-14 tablet by ity of tablet 00:00: mouth in [place] [address] the [facility] morning Branch and 1 tablet in the evening. DULoxetine 3-0 Yes [id number] 60mg Take 1 U nivers 60 mg 6-14 capsule by ity of capsule 00:00: mouth in [place] [address] the [facility] morning Branch and 1 capsule in the evening. lamoTRIgine 3-0 Yes [id number] 100mg Take 1 Univers 100 mg 6-14 tablet by ity of tablet 00:00: mouth in [place] [address] the [facility] morning Branch and 1 tablet in the evening. lithium 3-0 Yes [id number] 900mg Take 2 Uni vers carbonate 6-14 tablets by ity of CR 450 mg 00:00: [place] tablet 00 bedtime. Medica l Branch traZODone 3-0 Yes [id number] 50mg Take 1 U nivers 50 mg 6-14 tablet by ity of tablet 00:00: mouth at [place] 00 bedtime. June cut Branch tablet in half. busPIRone 2023-0 Yes [id number] 10mg Take 1 Un cristhian 10 mg 6-14 tablet by ity of tablet 00:00: mouth in [place] [address] the [facility] morning Branch and 1 tablet in the evening. DULoxetine 2023-0 Yes [id number] 60mg Take 1 U nivers 60 mg 6-14 capsule by ity of capsule 00:00: mouth in [place] [address] the [facility] morning Branch and 1 capsule in the evening. lamoTRIgine 2023-0 Yes [id number] 100mg Take 1 Univers 100 mg 6-14 tablet by ity of tablet 00:00: mouth in [place] 00 the Medical morning Branch and 1 tablet in the evening. lithium 2022-0 Yes [id number] 900mg Take 2 Uni vers carbonate 6-14 tablets by ity of CR 450 mg 00:00: mouth at [facility] s SR tablet 00 bedtime. Medica l Branch traZODone 2022-0 Yes [id number] 50mg Take 1 U nivers 50 mg 6-14 tablet by ity of tablet 00:00: mouth at [place] 00 bedtime. Medical May cut Branch tablet in half. busPIRone 2022-0 Yes [id number] 10mg Take 1 Un cristhian 10 mg 6-14 tablet by ity of tablet 00:00: mouth in [place] 00 the Medical morning Branch and 1 tablet in the evening. DULoxetine 2022-0 Yes [id number] 60mg Take 1 U nivers 60 mg 6-14 capsule by ity of capsule 00:00: mouth in [place] 00 the Medical morning Branch and 1 capsule in the evening. traZODone 2022-0 Yes [id number] 50mg Take 1 U nivers 50 mg 6-14 tablet by ity of tablet 00:00: mouth at [place] 00 bedtime. Medical May cut Branch tablet in half. traZODone 2022-0 Yes [id number] 50mg Take 1 U nivers 50 mg 6-14 tablet by ity of tablet 00:00: mouth at [place] 00 bedtime. Medical May cut Branch tablet in half. traZODone 2022-0 Yes [id number] 50mg Take 1 U nivers 50 mg 6-14 tablet by ity of tablet 00:00: mouth at [place] 00 bedtime. Medical May cut Branch tablet in half. DULoxetine 2022-0 2022- No [id number] 60mg Take 1 Univers 60 mg 6-14 08-14 capsule by ity of capsule 00:00: 00:00 mouth in [place] 00 :00 the Medical morning Branch and 1 capsule in the evening. DULoxetine 2022-0 2022- No [id number] 60mg Take 1 Univers 60 mg 6-14 08-14 capsule by ity of capsule 00:00: 00:00 mouth in [place] 00 :00 the Medical morning Branch and 1 capsule in the evening. lamoTRIgine No [id number] 100mg Take 1 Univers 100 mg 6-14 08-02 tablet by ity of tablet 00:00: 00:00 mouth in [place] 00 :00 the Medical morning Branch and 1 tablet in the evening. lithium No [id number] 900mg Take 2 Un cristhian carbonate 6-14 08-02 tablets by ity of CR 450 mg 00:00: 00:00 mouth at [place] tablet 00 :00 bedtime. Medica l Branch busPIRone 2022- No [id number] 10mg Take 1 U nivers 10 mg 6-14 08-02 tablet by ity of tablet 00:00: 00:00 mouth in [place] 00 :00 the Medical morning Branch and 1 tablet in the evening. lamoTRIgine 2022- No [id number] 100mg Take 1 Univers 100 mg 6-14 08-02 tablet by ity of tablet 00:00: 00:00 mouth in [place] 00 :00 the Medical morning Branch and 1 tablet in the evening. lithium No [id number] 900mg Take 2 Un cristhian carbonate 6-14 08-02 tablets by ity of CR 450 mg 00:00: 00:00 mouth at [place] tablet 00 :00 bedtime. Medica l Branch busPIRone No [id number] 10mg Take 1 U nivers 10 mg 6-14 08-02 tablet by ity of tablet 00:00: 00:00 mouth in [place] 00 :00 the Medical morning Branch and 1 tablet in the evening. lamoTRIgine No [id number] 100mg Take 1 Univers 100 mg 6-14 08-02 tablet by ity of tablet 00:00: 00:00 mouth in [place] 00 :00 the Medical morning Branch and 1 tablet in the evening. lithium 2022-2022- No [id number] 900mg Take 2 Un cristhian carbonate 6-14 08-02 tablets by ity of CR 450 mg 00:00: 00:00 mouth at [place] tablet 00 :00 bedtime. Medica l Branch busPIRone 2022- No [id number] 10mg Take 1 U nivers 10 mg 6-14 08-02 tablet by ity of tablet 00:00: 00:00 mouth in [place] 00 :00 the Medical morning Branch and 1 tablet in the evening. lamoTRIgine 2023-0 Yes [id number] 100mg Take 1 Univers 100 mg 6-07 tablet by ity of tablet 00:00: mouth in [place] 00 the Medical morning Branch and 1 tablet in the evening. lamoTRIgine 2023-0 Yes [id number] 100mg Take 1 Univers 100 mg 6-07 tablet by ity of tablet 00:00: mouth in [place] 00 the Medical morning Branch and 1 tablet in the evening. lamoTRIgine 2023-0 2023- No [id number] 100mg Take 1 Univers 100 mg 6-08 17-14 tablet by ity of tablet 00:00: 00:00 mouth in [place] 00 :00 the Medical morning Branch and 1 tablet in the evening. lamoTRIgine 2023-0 2023- No [id number] 100mg Take 1 Univers 100 mg 6- 06-14 tablet by ity of tablet 00:00: 00:00 mouth in [place] 00 :00 the Medical morning Branch and 1 tablet in the evening. lamoTRIgine 2023-0 2023- No [id number] 100mg Take 1 Univers 100 mg 6-08 17-14 tablet by ity of tablet 00:00: 00:00 mouth in [place] 00 :00 the Medical morning Branch and 1 tablet in the evening. lamoTRIgine 2023-0 2023- No [id number] 100mg Take 1 Univers 100 mg 6-08 17-14 tablet by ity of tablet 00:00: 00:00 mouth in [place] 00 :00 the Medical morning Branch and 1 tablet in the evening. clonazePAM 2023-0 Yes [id number] Take 1 U nivers 1 mg tablet 5-24 tablet by ity of 00:00: mouth [place] 00 twice Medical daily as Branch needed for anxiety. clonazePAM 2023-0 Yes [id number] Take 1 U nivers 1 mg tablet 5-24 tablet by ity of 00:00: mouth [place] 00 twice Medical daily as Branch needed for anxiety. clonazePAM 2023-0 Yes [id number] Take 1 U nivers 1 mg tablet 5-24 tablet by ity of 00:00: mouth [place] 00 twice Medical daily as Branch needed for anxiety. clonazePAM 2023-0 Yes [id number] Take 1 U nivers 1 mg tablet 5-24 tablet by ity of 00:00: mouth [place] 00 twice Medical daily as Branch needed for anxiety. clonazePAM 2023-0 Yes [id number] Take 1 U nivers 1 mg tablet 5-24 tablet by ity of 00:00: mouth [place] 00 twice Medical daily as Branch needed for anxiety. clonazePAM 2023-0 Yes [id number] Take 1 U nivers 1 mg tablet 5-24 tablet by ity of 00:00: mouth [place] 00 twice Medical daily as Branch needed for anxiety. clonazePAM 2023-0 Yes [id number] Take 1 U nivers 1 mg tablet 5-24 tablet by ity of 00:00: mouth [place] 00 twice Medical daily as Branch needed for anxiety. clonazePAM 2023-0 Yes [id number] Take 1 U nivers 1 mg tablet 5-24 tablet by ity of 00:00: mouth [place] 00 twice Medical daily as Branch needed for anxiety. clonazePAM 3-0 2022- No [id number] Take 1 Univers 1 mg tablet 5-04 09-18 tablet by it y of 00:00: 00:00 mouth [place] 00 :00 twice Medical daily as Branch needed for anxiety. clonazePAM 3-0 3- No [id number] Take 1 Univers 1 mg tablet -04 09-18 tablet by it y of 00:00: 00:00 mouth [place] 00 :00 twice Medical daily as Branch needed for anxiety. clonazePAM 3-0 2022- No [id number] Take 1 Univers 1 mg tablet -04 09-18 tablet by it y of 00:00: 00:00 mouth [place] 00 :00 twice Medical daily as Branch needed for anxiety. clonazePAM 3-0 2022- No [id number] Take 1 Univers 1 mg tablet -04 09-18 tablet by it y of 00:00: 00:00 mouth [place] 00 :00 twice Medical daily as Branch needed for anxiety. clonazePAM 2023-0 3- No [id number] Take 1 Univers 1 mg tablet 5-04 09-18 tablet by it y of 00:00: 00:00 mouth [place] 00 :00 twice Medical daily as Branch needed for anxiety. clonazePAM 2023-0 3- No [id number] Take 1 Univers 1 mg tablet 5-24 -18 tablet by it y of 00:00: 00:00 mouth [place] 00 :00 twice Medical daily as Branch needed for anxiety. clonazePAM 2023-0 2022- No [id number] Take 1 Univers 1 mg tablet 5-24 07-18 tablet by it y of 00:00: 00:00 mouth [place] 00 :00 twice Medical daily as Branch needed for anxiety. DULoxetine 2022-0 Yes [id number] 60mg Take 1 U nivers 60 mg 5-09 capsule by ity of capsule 00:00: mouth in [place] [address] the Medical morning Branch and 1 capsule in the evening. lithium 2022-0 Yes [id number] 900mg Take 2 Uni vers carbonate 5-09 tablets by ity of CR 450 mg 00:00: mouth [place] SR tablet 00 bedtime. Medica l Branch DULoxetine 2022-0 Yes [id number] 60mg Take 1 U nivers 60 mg 5-09 capsule by ity of capsule 00:00: mouth in [place] [address] the Medical morning Branch and 1 capsule in the evening. lithium 2022-0 Yes [id number] 900mg Take 2 Uni vers carbonate 5-09 tablets by ity of CR 450 mg 00:00: mouth [place] SR tablet 00 bedtime. Medica l Branch DULoxetine 2022-0 Yes [id number] 60mg Take 1 U nivers 60 mg 5-09 capsule by ity of capsule 00:00: mouth in [place] [address] the [facility] morning [place] and 1 capsule in the evening. lithium 2022-0 Yes [id number] 900mg Take 2 Uni vers carbonate 5-09 tablets by ity of CR 450 mg 00:00: mouth [place] tablet [facility] DULoxetine 2022-0 Yes [id number] 60mg Take 1 U nivers 60 mg 5-09 capsule by ity of capsule 00:00: mouth in [place] [address] the [facility] morning Branch and 1 capsule in the evening. lithium 2022-0 Yes [id number] 900mg Take 2 Uni vers carbonate 5-09 tablets by ity of CR 450 mg 00:00: mouth [place] tablet 00 bedtime. Medica l Branch DULoxetine 2022-0 Yes [id number] 60mg Take 1 U nivers 60 mg 5-09 capsule by ity of capsule 00:00: mouth in [place] [address] the [facility] morning [place] and 1 capsule in the evening. lithium 2022-0 Yes [id number] 900mg Take 2 Uni vers carbonate 5-09 tablets by ity of CR 450 mg 00:00: mouth [place] tablet 00 bedtime. Medica l Branch DULoxetine 2022- No [id number] 60mg Take 1 Univers 60 mg 06-20-14 capsule by ity of capsule 00:00: 00:00 mouth in [place] 00 :00 the Medical morning Branch and 1 capsule in the evening. lithium 2022- No [id number] 900mg Take 2 Un cristhian carbonate 06-20-14 tablets by ity of CR 450 mg 00:00: 00:00 mouth at [place] tablet 00 :00 bedtime. [facility] DULoxetine 2022- No [id number] 60mg Take 1 Univers 60 mg 06-20-14 capsule by ity of capsule 00:00: 00:00 mouth in [place] 00 :00 the Medical morning Branch and 1 capsule in the evening. lithium 2022-2022- No [id number] 900mg Take 2 Un cristhian carbonate 06-20-14 tablets by ity of CR 450 mg 00:00: 00:00 mouth at [place] tablet 00 :00 bedtime. [facility] DULoxetine 2022- No [id number] 60mg Take 1 Univers 60 mg 06-20-14 capsule by ity of capsule 00:00: 00:00 mouth in [place] 00 :00 the Medical morning Branch and 1 capsule in the evening. lithium 2022- No [id number] 900mg Take 2 Un cristhian carbonate 06-20-14 tablets by ity of CR 450 mg 00:00: 00:00 mouth at [place] tablet 00 :00 bedtime. [facility] DULoxetine 2022- No [id number] 60mg Take 1 Univers 60 mg 06-20-14 capsule by ity of capsule 00:00: 00:00 mouth in [place] 00 :00 the Medical morning Branch and 1 capsule in the evening. lithium 2022-0 2022- No [id number] 900mg Take 2 Un cristhian carbonate 5-14 tablets by ity of CR 450 mg 00:00: 00:00 mouth at [place] tablet 00 :00 bedtime. [facility] [place] DULoxetine 2022-0 Yes [id number] 60mg Take 1 U nivers 60 mg 3-09 capsule by [facility] capsule 00:00: mouth in [place] 00 the Medical morning Branch and 1 capsule in the evening. clonazePAM 2022-0 Yes [id number] Take 1 [facility] n[facility] 1 mg tablet 3-09 tablet by [facility] of 00:00: mouth [place] 00 twice Medical daily as Branch needed for anxiety. lamoTRIgine 2023-0 Yes [id number] 100mg Take 1 [facility] 100 mg 3-09 tablet by [facility] tablet 00:00: mouth in [place] 00 the Medical morning Branch and 1 tablet in the evening. traZODone 2023-0 Yes [id number] 50mg Take 1 [facility] 50 mg 3-09 tablet by [facility] tablet 00:00: mouth at [place] 00 bedtime. Medical May cut Branch tablet in half. lithium 2023-0 Yes [id number] 900mg Take 2 [facility] vers carbonate 3-09 tablets by [facility] CR 450 mg 00:00: [place] SR tablet 00 bedtime. Medica l Branch DULoxetine 3-0 Yes [id number] 60mg Take 1 [facility] 60 mg 3-09 capsule by [facility] capsule 00:00: mouth in [place] 00 the Medical morning Branch and 1 capsule in the evening. clonazePAM 3-0 Yes [id number] Take 1 [facility] 1 mg tablet 3-09 tablet by [facility] of 00:00: mouth [place] 00 twice Medical daily as Branch needed for anxiety. lamoTRIgine 3-0 Yes [id number] 100mg Take 1 [facility] 100 mg 3-09 tablet by [facility] tablet 00:00: mouth in [place] 00 the Medical morning Branch and 1 tablet in the evening. traZODone 3-0 Yes [id number] 50mg Take 1 [facility] 50 mg 3-09 tablet by [facility] tablet 00:00: mouth at [place] 00 bedtime. Medical May cut Branch tablet in half. lithium 2023-0 Yes [id number] 900mg Take 2 [facility] vers carbonate 3-09 tablets by [facility] CR 450 mg 00:00: [place] tablet 00 bedtime. Medica l Branch clonazePAM 2023-0 Yes [id number] Take 1 [facility] 1 mg tablet 3-09 tablet by [facility] of 00:00: mouth [place] 00 twice Medical daily as Branch needed for anxiety. lamoTRIgine 2023-0 Yes [id number] 100mg Take 1 [facility] 100 mg 3-09 tablet by [facility] tablet 00:00: mouth in [place] 00 the Medical morning Branch and 1 tablet in the evening. traZODone 2022-0 Yes [id number] 50mg Take 1 [facility] 50 mg 3-09 tablet by [facility] of tablet 00:00: mouth at [place] [address] bedtime. Medical May cut Branch tablet in half. clonazePAM 2022-0 Yes [id number] Take 1 [facility] 1 mg tablet 3-09 tablet by [facility] of 00:00: mouth [place] 00 twice Medical daily as Branch needed for anxiety. lamoTRIgine 2022-0 Yes [id number] 100mg Take 1 [facility] 100 mg 3-09 tablet by [facility] of tablet 00:00: mouth in [place] 00 the Medical morning Branch and 1 tablet in the evening. traZODone 2022-0 Yes [id number] 50mg Take 1 [facility] 50 mg 3-09 tablet by [facility] tablet 00:00: mouth at [place] [address] bedtime. Medical May cut Branch tablet in half. lamoTRIgine 2022-0 Yes [id number] 100mg Take 1 [facility] 100 mg 3-09 tablet by [facility] of tablet 00:00: mouth in [place] 00 the Medical morning Branch and 1 tablet in the evening. traZODone 2022-0 Yes [id number] 50mg Take 1 [facility] 50 mg 3-09 tablet by [facility] tablet 00:00: mouth at [place] [address] bedtime. Medical May cut Branch tablet in half. traZODone 2022-0 Yes [id number] 50mg Take 1 [facility] 50 mg 3-09 tablet by [facility] tablet 00:00: mouth at [place] [address] bedtime. Medical May cut Branch tablet in half. traZODone 2022-0 Yes [id number] 50mg Take 1 [facility] 50 mg 3-09 tablet by [facility] tablet 00:00: mouth at [place] [address] bedtime. Medical May cut Branch tablet in half. traZODone 3-0 3- No [id number] 50mg Take 1 [facility] 50 mg 3-09 06-14 tablet by [facility] tablet 00:00: 00:00 mouth at [place] 00 :00 bedtime. Medical May cut Branch tablet in half. traZODone 3-0 3- No [id number] 50mg Take 1 [facility] 50 mg 3-09 06-14 tablet by [facility] tablet 00:00: 00:00 mouth at [place] 00 :00 bedtime. Medical May cut Branch tablet in half. traZODone 2023-0 3- No [id number] 50mg Take 1 [facility] 50 mg 04-20 tablet by [facility] of tablet 00:00: 00:00 mouth at [place] 00 :00 bedtime. Medical May cut Branch tablet in half. traZODone 2023-0 3- No [id number] 50mg Take 1 [facility] 50 mg 04-20 tablet by [facility] of tablet 00:00: 00:00 mouth at [place] 00 :00 bedtime. Medical May cut Branch tablet in half. lamoTRIgine 2023-0 3- No [id number] 100mg Take 1 [facility] 100 mg 04-20 tablet by [facility] of tablet 00:00: 00:00 mouth in [place] 00 :00 the Medical morning Branch and 1 tablet in the evening. lamoTRIgine 2023-0 3- No [id number] 100mg Take 1 [facility] 100 mg 04-20 tablet by [facility] of tablet 00:00: 00:00 mouth in [place] 00 :00 the Medical morning Branch and 1 tablet in the evening. lamoTRIgine 2023-0 3- No [id number] 100mg Take 1 [facility] 100 mg 04-20 tablet by [facility] of tablet 00:00: 00:00 mouth in [place] 00 :00 the Medical morning Branch and 1 tablet in the evening. lamoTRIgine 2023-0 3- No [id number] 100mg Take 1 [facility] 100 mg 04-20 tablet by [facility] of tablet 00:00: 00:00 mouth in [place] 00 :00 the Medical morning Branch and 1 tablet in the evening. clonazePAM 2023-0 3- No [id number] Take 1 [facility] 1 mg tablet 04-2024 tablet by it y of 00:00: 00:00 mouth [place] 00 :00 twice Medical daily as Branch needed for anxiety. clonazePAM 2023-0 3- No [id number] Take 1 [facility] 1 mg tablet 04-20-24 tablet by it y of 00:00: 00:00 mouth [place] 00 :00 twice Medical daily as Branch needed for anxiety. clonazePAM 2023-0 3- No [id number] Take 1 [facility] 1 mg tablet 04-20-24 tablet by it y of 00:00: 00:00 mouth [place] 00 :00 twice Medical daily as Branch needed for anxiety. clonazePAM 2022-2022- No [id number] Take 1 [facility] 1 mg tablet 04-2024 tablet by it y of 00:00: 00:00 mouth [place] 00 :00 twice Medical daily as Branch needed for anxiety. clonazePAM 2022-2022- No [id number] Take 1 [facility] 1 mg tablet 04-2024 tablet by it y of 00:00: 00:00 mouth [place] 00 :00 twice Medical daily as Branch needed for anxiety. DULoxetine 2022-2022- No [id number] 60mg Take 1 [facility] 60 mg 04-20-06 capsule by [facility] of capsule 00:00: 00:00 mouth in [place] 00 :00 the Medical morning Branch and 1 capsule in the evening. lithium 2022-2022- No [id number] 900mg Take 2 Un cristhian carbonate 04-20-06 tablets by ity of CR 450 mg 00:00: 00:00 mouth [place] tablet 00 :00 bedtime. Medica l Branch DULoxetine 2022-2022- No [id number] 60mg Take 1 [facility] 60 mg 04-20- capsule by [facility] of capsule 00:00: 00:00 mouth in [place] 00 :00 the Medical morning Branch and 1 capsule in the evening. lithium 2022-2022- No [id number] 900mg Take 2 Un cristhian carbonate 04-20-06 tablets by ity of CR 450 mg 00:00: 00:00 mouth at [place] tablet 00 :00 [facility] DULoxetine 2022-0 2022- No [id number] 60mg Take 1 [facility] 60 mg 04-20-06 capsule by it[facility] of capsule 00:00: 00:00 mouth in [place] 00 :00 the Medical morning Branch and 1 capsule in the evening. lithium 2022-0 2022- No [id number] 900mg Take 2 Un cristhian carbonate 3 05-06 tablets by ity of CR 450 mg 00:00: 00:00 mouth at [place] tablet 00 :00 bedtime. Medica l Branch lamoTRIgine 3-0 Yes [id number] 100mg Take 1 [facility] 100 mg 1-26 tablet by it[facility] of tablet 00:00: mouth in [place] 00 the Medical morning Branch and 1 tablet in the evening. lamoTRIgine 2023-0 Yes [id number] 100mg Take 1 [facility] 100 mg 1-26 tablet by it[facility] of tablet 00:00: mouth in [place] 00 the [facility] morning [place] and 1 tablet in the evening. lamoTRIgine 2023-0 Yes [id number] 100mg Take 1 [facility] 100 mg 1-26 tablet by ity of tablet 00:00: mouth in [place] 00 the [facility] and 1 tablet in the evening. lamoTRIgine 2023-0 Yes [id number] 100mg Take 1 [facility] 100 mg 1-26 tablet by ity of tablet 00:00: mouth in [place] 00 [facility] and 1 tablet in the evening. lamoTRIgine 2023-0 2023- No [id number] 100mg Take 1 [facility] 100 mg 1-26 03-09 tablet by ity of tablet 00:00: 00:00 mouth in [place] 00 :00 the [facility] and 1 tablet in the evening. lamoTRIgine 2023-0 2023- No [id number] 100mg Take 1 [facility] 100 mg 1-26 03-09 tablet by ity of tablet 00:00: 00:00 mouth in [place] 00 :00 the [facility] and 1 tablet in the evening. DULoxetine 2023-0 Yes [id number] 60mg Take 1 [facility] n[facility] 60 mg 1-04 capsule by it[facility] of capsule 00:00: mouth in [address] and 1 capsule in the evening. lamoTRIgine 2023-0 Yes [id number] 100mg Take 1 [facility] 100 mg 1-04 tablet by ity of tablet 00:00: mouth in [address] and 1 tablet in the evening. traZODone 2023-0 Yes [id number] 50mg Take 1 [facility] 50 mg 1-04 tablet by it[facility] of tablet 00:00: mouth at [place] 00 bedtime. Medical May cut Branch tablet in half. clonazePAM 2023-0 Yes [id number] Take 1 [facility] nivers 1 mg tablet 1-04 tablet by ity of 00:00: mouth [place] 00 twice Medical daily as Branch needed for anxiety. lithium 600 2023-0 Yes [id number] 600mg Take 1 [facility] mg capsule 1-04 capsule by ity of 00:00: mouth in [place] [address] the [facility] and 1 capsule in the evening. DULoxetine 2023-0 Yes [id number] 60mg Take 1 [facility] nivers 60 mg 1-04 capsule by ity of capsule 00:00: mouth in [place] 00 the Medical morning Branch and 1 capsule in the evening. lamoTRIgine 2023-0 Yes [id number] 100mg Take 1 [facility] 100 mg 1-04 tablet by ity of tablet 00:00: mouth in [place] 00 the Medical morning Branch and 1 tablet in the evening. traZODone 2023-0 Yes [id number] 50mg Take 1 [facility] nivers 50 mg 1-04 tablet by it[facility] of tablet 00:00: mouth at [place] 00 bedtime. Medical May cut Branch tablet in half. clonazePAM 2023-0 Yes [id number] Take 1 [facility] nivers 1 mg tablet 1-04 tablet by ity of 00:00: mouth [place] 00 twice Medical daily as Branch needed for anxiety. lithium 3-0 Yes [id number] 900mg Take 2 [facility] vers carbonate 1-04 tablets by [facility] of CR 450 mg 00:00: [place] tablet 00 bedtime. Medica l Branch DULoxetine 3-0 Yes [id number] 60mg Take 1 [facility] nivers 60 mg 1-04 capsule by it[facility] of capsule 00:00: mouth in [place] 00 the Medical morning Branch and 1 capsule in the evening. lamoTRIgine 3-0 Yes [id number] 100mg Take 1 [facility] 100 mg 1-04 tablet by ity of tablet 00:00: mouth in [place] 00 the Medical morning Branch and 1 tablet in the evening. traZODone 3-0 Yes [id number] 50mg Take 1 [facility] 50 mg 1-04 tablet by [facility]y of tablet 00:00: mouth at [place] [address] bedtime. Medical May cut Branch tablet in half. clonazePAM 3-0 Yes [id number] Take 1 [facility] nivers 1 mg tablet 1-04 tablet by ity of 00:00: mouth [place] 00 twice Medical daily as Branch needed for anxiety. lithium 3-0 Yes [id number] 900mg Take 2 [facility] vers carbonate 1-04 tablets by [facility] of CR 450 mg 00:00: [place] tablet 00 bedtime. Medica l Branch DULoxetine 3-0 Yes [id number] 60mg Take 1 [facility] nivers 60 mg 1-04 capsule by ity of capsule 00:00: mouth in [place] 00 the Medical morning Branch and 1 capsule in the evening. lamoTRIgine 2023-0 Yes [id number] 100mg Take 1 [facility] 100 mg 1-04 tablet by ity of tablet 00:00: mouth in [place] 00 the Medical morning Branch and 1 tablet in the evening. traZODone 2023-0 Yes [id number] 50mg Take 1 [facility]ivers 50 mg 1-04 tablet by ity of tablet 00:00: mouth at [place] 00 bedtime. Medical May cut Branch tablet in half. clonazePAM 2023-0 Yes [id number] Take 1 [facility] nivers 1 mg tablet 1-04 tablet by ity of 00:00: mouth [place] 00 twice Medical daily as Branch needed for anxiety. lithium 2023-0 Yes [id number] 900mg Take 2 [facility] vers carbonate 1-04 tablets by it[facility] of CR 450 mg 00:00: mouth [place] SR tablet 00 bedtime. Medica l Branch DULoxetine 3-0 Yes [id number] 60mg Take 1 [facility] nivers 60 mg 1-04 capsule by [facility]y of capsule 00:00: mouth in [place] 00 the Medical morning Branch and 1 capsule in the evening. lamoTRIgine 3-0 Yes [id number] 100mg Take 1 [facility] 100 mg 1-04 tablet by ity of tablet 00:00: mouth in [place] 00 the Medical morning Branch and 1 tablet in the evening. traZODone 3-0 Yes [id number] 50mg Take 1 [facility] nivers 50 mg 1-04 tablet by [facility]y of tablet 00:00: mouth at [place] 00 bedtime. Medical May cut Branch tablet in half. clonazePAM 3-0 Yes [id number] Take 1 [facility] nivers 1 mg tablet 1-04 tablet by ity of 00:00: mouth [place] 00 twice Medical daily as Branch needed for anxiety. lithium 3-0 Yes [id number] 900mg Take 2 [facility] vers carbonate 1-04 tablets by [facility] of CR 450 mg 00:00: [place] tablet 00 bedtime. Medica l Branch DULoxetine 3-0 Yes [id number] 60mg Take 1 [facility] nivers 60 mg 1-04 capsule by [facility] of capsule 00:00: mouth in [place] 00 the Medical morning Branch and 1 capsule in the evening. lamoTRIgine 2023-0 Yes [id number] 100mg Take 1 [facility] 100 mg 1-04 tablet by ity of tablet 00:00: mouth in [place] 00 the Medical morning Branch and 1 tablet in the evening. traZODone 2022-0 Yes [id number] 50mg Take 1 [facility] nivers 50 mg 1-04 tablet by ity of tablet 00:00: mouth at [place] 00 bedtime. Medical May cut Branch tablet in half. clonazePAM 2022-0 Yes [id number] Take 1 [facility] nivers 1 mg tablet 1-04 tablet by ity of 00:00: mouth [place] 00 twice Medical daily as Branch needed for anxiety. lithium 2022-0 Yes [id number] 900mg Take 2 [facility] vers carbonate 1-04 tablets by [facility] of CR 450 mg 00:00: mouth [place] tablet 00 bedtime. Medica l Branch DULoxetine 2022-0 Yes [id number] 60mg Take 1 [facility] nivers 60 mg 1-04 capsule by ity of capsule 00:00: mouth in [place] 00 the Medical morning Branch and 1 capsule in the evening. traZODone 2022-0 Yes [id number] 50mg Take 1 [facility] nivers 50 mg 1-04 tablet by ity of tablet 00:00: mouth at [place] [address] bedtime. Medical May cut Branch tablet in half. clonazePAM 2022-0 Yes [id number] Take 1 [facility] nivers 1 mg tablet 1-04 tablet by ity of 00:00: mouth [place] 00 twice Medical daily as Branch needed for anxiety. lithium 2022-0 Yes [id number] 900mg Take 2 [facility] vers carbonate 1-04 tablets by ity of CR 450 mg 00:00: mouth [place] tablet 00 bedtime. Medica l Branch DULoxetine 2022-0 Yes [id number] 60mg Take 1 [facility] nivers 60 mg 1-04 capsule by ity of capsule 00:00: mouth in [place] 00 the Medical morning Branch and 1 capsule in the evening. traZODone 2022-0 Yes [id number] 50mg Take 1 [facility] nivers 50 mg 1-04 tablet by [facility]y of tablet 00:00: mouth at [place] [address] bedtime. Medical May cut Branch tablet in half. clonazePAM 2022-0 Yes [id number] Take 1 [facility] nivers 1 mg tablet 1-04 tablet by ity of 00:00: mouth [place] 00 twice Medical daily as Branch needed for anxiety. lithium 2022-0 Yes [id number] 900mg Take 2 [facility] vers carbonate 1-04 tablets by ity of CR 450 mg 00:00: [facility] bed[facility]. Medica l Branch DULoxetine 2022-0 Yes [id number] 60mg Take 1 U nivers 60 mg 1-04 capsule by ity of capsule 00:00: mouth in [place] 00 the Medical morning Branch and 1 capsule in the evening. traZODone 2022-0 Yes [id number] 50mg Take 1 [facility] nivers 50 mg 1-04 tablet by ity of tablet 00:00: mouth at [place] 00 bedtime. Medical May cut Branch tablet in half. clonazePAM 2022-0 Yes [id number] Take 1 [facility] nivers 1 mg tablet 1-04 tablet by ity of 00:00: mouth [place] 00 twice Medical daily as Branch needed for anxiety. lithium 2022-0 Yes [id number] 900mg Take 2 [facility] vers carbonate 1-04 tablets by [facility] of CR 450 mg 00:00: [place] tablet 00 bedtime. Medica l Branch DULoxetine 2022-0 Yes [id number] 60mg Take 1 [facility] nivers 60 mg 1-04 capsule by ity of capsule 00:00: mouth in [place] 00 the Medical morning Branch and 1 capsule in the evening. traZODone 2022-0 Yes [id number] 50mg Take 1 [facility] nivers 50 mg 1-04 tablet by ity of tablet 00:00: mouth at [place] 00 bedtime. Medical May cut Branch tablet in half. clonazePAM 2022-0 Yes [id number] Take 1 [facility] nivers 1 mg tablet 1-04 tablet by ity of 00:00: mouth [place] 00 twice Medical daily as Branch needed for anxiety. lithium 2022-0 Yes [id number] 900mg Take 2 [facility] vers carbonate 1-04 tablets by [facility] of CR 450 mg 00:00: mouth [place] tablet 00 bedtime. Medica l Branch traZODone 2022-0 2022- No [id number] 50mg Take 1 [facility] 50 mg 1-04 03-09 tablet by ity of tablet 00:00: 00:00 mouth at [place] 00 :00 bedtime. Medical May cut Branch tablet in half. lithium 2022-0 2022- No [id number] 900mg Take 2 Un cristhian carbonate 1-04 03-09 tablets by ity of CR 450 mg 00:00: 00:00 mouth at [place] tablet 00 :00 bedtime. Medica l Branch traZODone 2022- No [id number] 50mg Take 1 [facility] 50 mg 02-15 tablet by ity of tablet 00:00: 00:00 mouth at [place] 00 :00 bedtime. Medical May cut Branch tablet in half. lithium 2022-2022- No [id number] 900mg Take 2 Un cristhian carbonate 02-15 tablets by ity of CR 450 mg 00:00: 00:00 mouth at [facility] as SR tablet 00 :00 bedtime. Medica l Branch DULoxetine 2022- No [id number] 60mg Take 1 [facility] 60 mg 02-15 capsule by ity of capsule 00:00: 00:00 mouth in [place] 00 :00 the Medical morning Branch and 1 capsule in the evening. clonazePAM 2022- No [id number] Take 1 [facility] 1 mg tablet 02-15 tablet by it y of 00:00: 00:00 mouth [place] 00 :00 twice Medical daily as Branch needed for anxiety. DULoxetine 2022- No [id number] 60mg Take 1 [facility] 60 mg 02-15 capsule by ity of capsule 00:00: 00:00 mouth in [place] 00 :00 the Medical morning Branch and 1 capsule in the evening. clonazePAM 2022-2022- No [id number] Take 1 [facility] 1 mg tablet 02-15 tablet by it y of 00:00: 00:00 mouth [place] 00 :00 twice Medical daily as Branch needed for anxiety. lamoTRIgine 2022-0 2022- No [id number] 100mg Take 1 [facility] 100 mg 02-15 tablet by ity of tablet 00:00: 00:00 mouth in [place] 00 :00 the Medical morning Branch and 1 tablet in the evening. lamoTRIgine 2022-0 2022- No [id number] 100mg Take 1 [facility] 100 mg 02-15 tablet by ity of tablet 00:00: 00:00 mouth in [place] 00 :00 the Medical morning Branch and 1 tablet in the evening. lamoTRIgine 2022-0 2022- No [id number] 100mg Take 1 [facility] 100 mg 02-15 tablet by ity of tablet 00:00: 00:00 mouth in [place] 00 :00 the Medical morning Branch and 1 tablet in the evening. lamoTRIgine 2023-0 2023- No [id number] 100mg Take 1 [facility] 100 mg 02-15 tablet by ity of tablet 00:00: 00:00 mouth in [place] 00 :00 the Medical morning Branch and 1 tablet in the evening. lithium 600 2023-0 2023- No [id number] 600mg Take 1 [facility] mg capsule -05 13- capsule by it y of 00:00: 00:00 mouth in [place] 00 :00 the Medical morning Branch and 1 capsule in the evening. lithium 600 2023-0 2023- No [id number] 600mg Take 1 [facility] mg capsule -05 13- capsule by it y of 00:00: 00:00 mouth in [place] 00 :00 the Medical morning Branch and 1 capsule in the evening. lithium 600 2023-0 2023- No [id number] 600mg Take 1 [facility] mg capsule 02-15 capsule by it y of 00:00: 00:00 mouth in [place] 00 :00 the Medical morning Branch and 1 capsule in the evening. lithium 600 2023-0 2023- No [id number] 600mg Take 1 [facility] mg capsule -05 13- capsule by it y of 00:00: 00:00 mouth in [place] 00 :00 the Medical morning Branch and 1 capsule in the evening. lithium 600 2023-0 2023- No [id number] 600mg Take 1 [facility] mg capsule -05 13- capsule by it y of 00:00: 00:00 mouth in [place] 00 :00 the Medical morning Branch and 1 capsule in the evening. lithium 600 2023-0 2023- No [id number] 600mg Take 1 [facility] mg capsule 02-15- capsule by it y of 00:00: 00:00 mouth in [place] 00 :00 the Medical morning Branch and 1 capsule in the evening. lithium 600 2023-0 2023- No [id number] 600mg Take 1 [facility] mg capsule -05 13- capsule by it y of 00:00: 00:00 mouth in [place] 00 :00 the Medical morning Branch and 1 capsule in the evening. lithium 600 2023-0 2023- No [id number] 600mg Take 1 [facility] mg capsule -05 13- capsule by it y of 00:00: 00:00 mouth in [place] 00 :00 the Medical morning Branch and 1 capsule in the evening. DULoxetine 2021-02 Yes [id number] 60mg Take 1 [facility] nivers 60 mg 2-28 capsule by ity of capsule 00:00: mouth in [place] 00 the Medical morning Branch and 1 capsule in the evening. DULoxetine 2021-02- No [id number] 60mg Take 1 [facility] 60 mg 2-28 -04 capsule by ity of capsule 00:00: 00:00 mouth in [place] 00 :00 the Medical morning Branch and 1 capsule in the evening. DULoxetine 2021-02- No [id number] 60mg Take 1 [facility] 60 mg 2-28 -04 capsule by ity of capsule 00:00: 00:00 mouth in [place] 00 :00 the Medical morning Branch and 1 capsule in the evening. DULoxetine 2021-02- No [id number] 60mg Take 1 [facility] 60 mg 2-28 -04 capsule by ity of capsule 00:00: 00:00 mouth in [place] 00 :00 the Medical morning Branch and 1 capsule in the evening. DULoxetine 2021-02- No [id number] 60mg Take 1 [facility] 60 mg 2-28 -04 capsule by ity of capsule 00:00: 00:00 mouth in [place] 00 :00 the Medical morning Branch and 1 capsule in the evening. DULoxetine 2021-02- No [id number] 60mg Take 1 [facility] 60 mg 2-28 -04 capsule by ity of capsule 00:00: 00:00 mouth in [place] 00 :00 the Medical morning Branch and 1 capsule in the evening. DULoxetine 2021-02- No [id number] 60mg Take 1 [facility] 60 mg 2-28 -04 capsule by ity of capsule 00:00: 00:00 mouth in [place] 00 :00 the Medical morning Branch and 1 capsule in the evening. DULoxetine 2021-02- No [id number] 60mg Take 1 [facility] 60 mg 2-28 -04 capsule by ity of capsule 00:00: 00:00 mouth in [place] 00 :00 the Medical morning Branch and 1 capsule in the evening. DULoxetine 2021-02- No [id number] 60mg Take 1 [facility] 60 mg 2-28 -04 capsule by ity of capsule 00:00: 00:00 mouth in [place] 00 :00 the Medical morning Branch and 1 capsule in the evening. lamoTRIgine 2021-02 Yes [id number] 100mg Take 1 [facility] 100 mg 2-22 tablet by ity of tablet 00:00: mouth in [place] 00 the Medical morning Branch and 1 tablet in the evening. lamoTRIgine 2021-02 Yes [id number] 100mg Take 1 [facility] 100 mg 2-22 tablet by ity of tablet 00:00: mouth in [place] 00 the Medical morning Branch and 1 tablet in the evening. lamoTRIgine 2021-02- No [id number] 100mg Take 1 [facility] 100 mg 2-22 01-04 tablet by ity of tablet 00:00: 00:00 mouth in [place] 00 :00 the Medical morning Branch and 1 tablet in the evening. lamoTRIgine 2021-02- No [id number] 100mg Take 1 [facility] 100 mg 2-22 01-04 tablet by ity of tablet 00:00: 00:00 mouth in [place] 00 :00 the Medical morning Branch and 1 tablet in the evening. lamoTRIgine 2021-02- No [id number] 100mg Take 1 [facility] 100 mg 2-22 -04 tablet by ity of tablet 00:00: 00:00 mouth in [place] 00 :00 the Medical morning Branch and 1 tablet in the evening. lamoTRIgine 2021-02- No [id number] 100mg Take 1 [facility] 100 mg 2-22 -04 tablet by ity of tablet 00:00: 00:00 mouth in [place] 00 :00 the Medical morning Branch and 1 tablet in the evening. lamoTRIgine 2021-02- No [id number] 100mg Take 1 [facility] 100 mg 2-22 -04 tablet by ity of tablet 00:00: 00:00 mouth in [place] 00 :00 the Medical morning Branch and 1 tablet in the evening. lamoTRIgine 2021-3- No [id number] 100mg Take 1 [facility] 100 mg 2-22 01-04 tablet by ity of tablet 00:00: 00:00 mouth in [place] 00 :00 the Medical morning Branch and 1 tablet in the evening. lamoTRIgine 2021-023- No [id number] 100mg Take 1 [facility] 100 mg 2-22 01-04 tablet by ity of tablet 00:00: 00:00 mouth in [place] 00 :00 the Medical morning Branch and 1 tablet in the evening. lamoTRIgine 2021-02- No [id number] 100mg Take 1 [facility] 100 mg 04-05- tablet by ity of tablet 00:00: 00:00 mouth in [place] 00 :00 the Medical morning Branch and 1 tablet in the evening. traZODone 2021-02 Yes [id number] 50mg Take 1 [facility] 50 mg 1-30 tablet by ity of tablet 00:00: mouth at [place] 00 bedtime. Medical May cut Branch tablet in half. lamoTRIgine 2021-02 Yes [id number] 100mg Take 1 [facility] 100 mg 1-30 tablet by ity of tablet 00:00: mouth in [place] 00 the Medical morning Branch and 1 tablet in the evening. traZODone 2021-02 Yes [id number] 50mg Take 1 [facility] 50 mg 1-30 tablet by [facility]y of tablet 00:00: mouth at [place] 00 bedtime. Medical May cut Branch tablet in half. lamoTRIgine 2021-02 Yes [id number] 100mg Take 1 [facility] 100 mg 1-30 tablet by [facility]y of tablet 00:00: mouth in [place] 00 the Medical morning Branch and 1 tablet in the evening. traZODone 2021-02 Yes [id number] 50mg Take 1 [facility] 50 mg 1-30 tablet by [facility]y of tablet 00:00: mouth at [place] 00 bedtime. Medical May cut Branch tablet in half. lamoTRIgine 2021-02 Yes [id number] 100mg Take 1 [facility] 100 mg 1-30 tablet by ity of tablet 00:00: mouth in [place] 00 the Medical morning Branch and 1 tablet in the evening. traZODone 2021-02 Yes [id number] 50mg Take 1 [facility] 50 mg 1-30 tablet by ity of tablet 00:00: mouth at [place] 00 bedtime. Medical May cut Branch tablet in half. traZODone 2021-02 Yes [id number] 50mg Take 1 [facility]ivers 50 mg 1-30 tablet by [facility]y of tablet 00:00: mouth at [place] 00 bedtime. Medical May cut Branch tablet in half. traZODone 2021-02- No [id number] 50mg Take 1 [facility] 50 mg 1-30 - tablet by [facility] tablet 00:00: 00:00 mouth at [place] 00 :00 bedtime. Medical May cut Branch tablet in half. traZODone 2021-02- No [id number] 50mg Take 1 [facility] 50 mg 1-30 -04 tablet by [facility] tablet 00:00: 00:00 mouth at [place] 00 :00 bedtime. Medical May cut Branch tablet in half. traZODone 2021-02- No [id number] 50mg Take 1 [facility] 50 mg 1-30 -04 tablet by [facility] of tablet 00:00: 00:00 mouth at [place] 00 :00 bedtime. Medical May cut Branch tablet in half. traZODone 2021-02- No [id number] 50mg Take 1 [facility] 50 mg 1-30 -04 tablet by [facility] of tablet 00:00: 00:00 mouth at [place] 00 :00 bedtime. Medical May cut Branch tablet in half. traZODone 2021-02- No [id number] 50mg Take 1 [facility] 50 mg 1-30 -04 tablet by [facility] of tablet 00:00: 00:00 mouth at [place] 00 :00 bedtime. Medical May cut Branch tablet in half. traZODone 2021-02- No [id number] 50mg Take 1 [facility] 50 mg 1-30 -04 tablet by [facility] of tablet 00:00: 00:00 mouth at [place] 00 :00 bedtime. Medical May cut Branch tablet in half. traZODone 2021-02- No [id number] 50mg Take 1 [facility] 50 mg 1-30 -04 tablet by [facility] of tablet 00:00: 00:00 mouth at [place] 00 :00 bedtime. Medical May cut Branch tablet in half. traZODone 2021-02- No [id number] 50mg Take 1 [facility] 50 mg 1-30 -04 tablet by [facility] of tablet 00:00: 00:00 mouth at [place] 00 :00 bedtime. Medical May cut Branch tablet in half. lamoTRIgine 2021-02- No [id number] 100mg Take 1 [facility] 100 mg 1-30 12-22 tablet by [facility] of tablet 00:00: 00:00 mouth in [place] 00 :00 the Medical morning Branch and 1 tablet in the evening. lamoTRIgine 2021-02- No [id number] 100mg Take 1 [facility] 100 mg 1-30 12-22 tablet by [facility] of tablet 00:00: 00:00 mouth in [place] 00 :00 the Medical morning Branch and 1 tablet in the evening. lamoTRIgine 2021-02- No [id number] 100mg Take 1 [facility] 100 mg 1-30 12-22 tablet by [facility] of tablet 00:00: 00:00 mouth in [place] 00 :00 the Medical morning Branch and 1 tablet in the evening. lamoTRIgine 2021-02- No [id number] 100mg Take 1 [facility] 100 mg 1-30 12-22 tablet by [facility] of tablet 00:00: 00:00 mouth in [place] 00 :00 the Medical morning Branch and 1 tablet in the evening. lamoTRIgine 2021-02- No [id number] 100mg Take 1 [facility] 100 mg 1-30 12-22 tablet by [facility] of tablet 00:00: 00:00 mouth in [place] 00 :00 the Medical morning Branch and 1 tablet in the evening. DULoxetine 2021-02 Yes [id number] 60mg Take 1 [facility] 60 mg 1-28 capsule by [facility] of capsule 00:00: mouth in [place] 00 the Medical morning Branch and 1 capsule in the evening. clonazePAM 2021-02 Yes [id number] Take 1 [facility] 1 mg tablet 1-28 tablet by [facility] of 00:00: mouth [place] 00 twice Medical daily as Branch needed for anxiety. DULoxetine 2021-02 Yes [id number] 60mg Take 1 [facility] 60 mg 1-28 capsule by [facility] of capsule 00:00: mouth in [place] 00 the Medical morning Branch and 1 capsule in the evening. clonazePAM 2021-02 Yes [id number] Take 1 [facility] 1 mg tablet 1-28 tablet by [facility] of 00:00: mouth [place] 00 twice Medical daily as Branch needed for anxiety. DULoxetine 2021-02 Yes [id number] 60mg Take 1 [facility] 60 mg 1-28 capsule by [facility] of capsule 00:00: mouth in [place] 00 the Medical morning Branch and 1 capsule in the evening. clonazePAM 2021-02 Yes [id number] Take 1 [facility] 1 mg tablet 1-28 tablet by [facility] of 00:00: mouth [place] 00 twice Medical daily as Branch needed for anxiety. DULoxetine 2021-02 Yes [id number] 60mg Take 1 [facility] 60 mg 1-28 capsule by [facility] of capsule 00:00: mouth in [place] 00 the Medical morning Branch and 1 capsule in the evening. clonazePAM 2021-02 Yes [id number] Take 1 [facility] 1 mg tablet 1-28 tablet by [facility] of 00:00: mouth [place] 00 twice Medical daily as Branch needed for anxiety. DULoxetine 2021-02 Yes [id number] 60mg Take 1 [facility] 60 mg 1-28 capsule by [facility] of capsule 00:00: mouth in [place] 00 the Medical morning Branch and 1 capsule in the evening. clonazePAM 2021-02 Yes [id number] Take 1 [facility] 1 mg tablet 1-28 tablet by [facility] of 00:00: mouth [place] 00 twice Medical daily as Branch needed for anxiety. DULoxetine 2021-02 Yes [id number] 60mg Take 1 [facility] 60 mg 1-28 capsule by [facility] of capsule 00:00: mouth in [place] 00 the Medical morning Branch and 1 capsule in the evening. clonazePAM 2021-02 Yes [id number] Take 1 [facility] 1 mg tablet 1-28 tablet by [facility] of 00:00: mouth [place] 00 twice Medical daily as Branch needed for anxiety. clonazePAM 2021-02 Yes [id number] Take 1 [facility] 1 mg tablet 1-28 tablet by [facility] of 00:00: mouth [place] 00 twice Medical daily as Branch needed for anxiety. clonazePAM 2021-02- No [id number] Take 1 [facility] 1 mg tablet 03-11- tablet by it y of 00:00: 00:00 mouth [place] 00 :00 twice Medical daily as Branch needed for anxiety. clonazePAM 2021-02- No [id number] Take 1 [facility] 1 mg tablet 03-11- tablet by it y of 00:00: 00:00 mouth [place] 00 :00 twice Medical daily as Branch needed for anxiety. clonazePAM 2021-02- No [id number] Take 1 [facility] 1 mg tablet 03-11- tablet by it y of 00:00: 00:00 mouth [place] 00 :00 twice Medical daily as Branch needed for anxiety. clonazePAM 2021-02- No [id number] Take 1 [facility] 1 mg tablet 03-11- tablet by it y of 00:00: 00:00 mouth [place] 00 :00 twice Medical daily as Branch needed for anxiety. clonazePAM 2021-02- No [id number] Take 1 [facility] 1 mg tablet 03-11 tablet by it y of 00:00: 00:00 mouth [place] 00 :00 twice Medical daily as Branch needed for anxiety. clonazePAM 2021-02- No [id number] Take 1 [facility] 1 mg tablet 03-11 tablet by it y of 00:00: 00:00 mouth [place] 00 :00 twice Medical daily as Branch needed for anxiety. clonazePAM 2021-02- No [id number] Take 1 [facility] 1 mg tablet 03-11 tablet by it y of 00:00: 00:00 mouth [place] 00 :00 twice Medical daily as Branch needed for anxiety. clonazePAM 2021-02- No [id number] Take 1 [facility] 1 mg tablet 03-11 tablet by it y of 00:00: 00:00 mouth [place] 00 :00 twice Medical daily as Branch needed for anxiety. DULoxetine 2021-02- No [id number] 60mg Take 1 [facility] 60 mg 1-28 12-27 capsule by [facility] of capsule 00:00: 00:00 mouth in [place] 00 :00 the Medical morning Branch and 1 capsule in the evening. DULoxetine 2021-02- No [id number] 60mg Take 1 [facility] 60 mg 1-28 12-27 capsule by [facility] of capsule 00:00: 00:00 mouth in [place] 00 :00 the Medical morning Branch and 1 capsule in the evening. DULoxetine 2021-02- No [id number] 60mg Take 1 [facility] 60 mg 1-28 12-27 capsule by [facility] of capsule 00:00: 00:00 mouth in [place] 00 :00 the Medical morning Branch and 1 capsule in the evening. DULoxetine 2021-02- No [id number] 60mg Take 1 [facility] 60 mg 1-28 12-27 capsule by [facility] of capsule 00:00: 00:00 mouth in [place] 00 :00 the Medical morning Branch and 1 capsule in the evening. DULoxetine 2021-02- No [id number] 60mg Take 1 [facility] 60 mg 1-28 12-27 capsule by [facility] of capsule 00:00: 00:00 mouth in [place] 00 :00 the Medical morning Branch and 1 capsule in the evening. traZODone 2021-02 Yes [id number] 50mg Take 1 [facility] 50 mg 1-22 tablet by [facility] of tablet 00:00: mouth at [place] 00 bedtime. Medical May cut Branch tablet in half. traZODone 2021-02 Yes [id number] 50mg Take 1 [facility] 50 mg 1-22 tablet by [facility] of tablet 00:00: mouth at [place] 00 bedtime. Medical May cut Branch tablet in half. traZODone 2021-02 Yes [id number] 50mg Take 1 [facility] 50 mg 1-22 tablet by [facility] of tablet 00:00: mouth at [place] [address] bedtime. Medical May cut Branch tablet in half. traZODone 2021-02- No [id number] 50mg Take 1 [facility] 50 mg 1-22 11-30 tablet by [facility] of tablet 00:00: 00:00 mouth at [place] 00 :00 bedtime. Medical May cut Branch tablet in half. traZODone 2021-02- No [id number] 50mg Take 1 [facility] 50 mg 1-22 11-30 tablet by [facility] of tablet 00:00: 00:00 mouth at [place] 00 :00 bedtime. Medical May cut Branch tablet in half. traZODone 2021-02- No [id number] 50mg Take 1 [facility] 50 mg 1-22 11-30 tablet by [facility] of tablet 00:00: 00:00 mouth at [place] 00 :00 bedtime. Medical May cut Branch tablet in half. traZODone 2021-02- No [id number] 50mg Take 1 [facility] 50 mg 1-22 11-30 tablet by [facility] of tablet 00:00: 00:00 mouth at [place] 00 :00 bedtime. Medical May cut Branch tablet in half. traZODone 2021-02- No [id number] 50mg Take 1 [facility] 50 mg 1-22 11-30 tablet by [facility] of tablet 00:00: 00:00 mouth at [place] 00 :00 bedtime. Medical May cut Branch tablet in half. DULoxetine 2021-02 Yes [id number] 60mg Take 1 [facility] 60 mg 0-25 capsule by [facility] of capsule 00:00: mouth in [place] 00 the Medical morning Branch and 1 capsule in the evening. DULoxetine 2021-02 Yes [id number] 60mg Take 1 [facility] 60 mg 0-25 capsule by [facility] of capsule 00:00: mouth in [place] 00 the Medical morning Branch and 1 capsule in the evening. DULoxetine 2021-02 Yes [id number] 60mg Take 1 [facility] 60 mg 0-25 capsule by [facility] of capsule 00:00: mouth in [place] 00 the [facility] morning Branch and 1 capsule in the evening. DULoxetine 2021-02- No [id number] 60mg Take 1 [facility] 60 mg 0-25 11-28 capsule by [facility] of capsule 00:00: 00:00 mouth in [place] 00 :00 the [facility] morning Branch and 1 capsule in the evening. DULoxetine 2021-02- No [id number] 60mg Take 1 [facility] 60 mg 0-25 11-28 capsule by [facility] of capsule 00:00: 00:00 mouth in [place] 00 :00 the [facility] morning Branch and 1 capsule in the evening. DULoxetine 2021-02- No [id number] 60mg Take 1 [facility] 60 mg 0-25 11-28 capsule by [facility] of capsule 00:00: 00:00 mouth in [place] 00 :00 the [facility] morning [place] and 1 capsule in the evening. DULoxetine 2021-02- No [id number] 60mg Take 1 [facility] 60 mg 0-25 11-28 capsule by [facility] of capsule 00:00: 00:00 mouth in [place] 00 :00 the [facility] morning [place] and 1 capsule in the evening. DULoxetine 2021-02- No [id number] 60mg Take 1 [facility] 60 mg 0-25 11-28 capsule by [facility] of capsule 00:00: 00:00 mouth in [place] 00 :00 the [facility] and 1 capsule in the evening. clonazePAM 2021-02 Yes [id number] Take 1 [facility] n[facility] 1 mg tablet 0-20 tablet by ity of 00:00: mouth [place] 00 twice Medical daily as Branch needed for anxiety. lithium 600 2021-02 Yes [id number] 600mg Take 1 [facility] mg capsule 0-20 capsule by it[facility] of 00:00: mouth in [place] 00 the [facility] morning [place] and 1 capsule in the evening. lamoTRIgine 2021-02 Yes [id number] 50mg Take 2 [facility] 25 mg 0-20 tablets by it[facility] of tablet 00:00: mouth in [place] [address] the [facility] morning [place] and 2 tablets in the evening. clonazePAM 2021-02 Yes [id number] Take 1 [facility] n[facility] 1 mg tablet 0-20 tablet by ity of 00:00: mouth [place] [address] twice Medical daily as Branch needed for anxiety. lithium 600 2021-02 Yes [id number] 600mg Take 1 [facility] mg capsule 0-20 capsule by ity of 00:00: mouth in [place] [address] the Medical morning Branch and 1 capsule in the evening. lamoTRIgine 2021-02 Yes [id number] 50mg Take 2 [facility] 25 mg 0-20 tablets by [facility] of tablet 00:00: mouth in [place] [address] the Medical morning Branch and 2 tablets in the evening. clonazePAM 2021-02 Yes [id number] Take 1 [facility] 1 mg tablet 0-20 tablet by ity of 00:00: mouth [place] [address] twice Medical daily as Branch needed for anxiety. lithium 600 2021-02 Yes [id number] 600mg Take 1 [facility] mg capsule 0-20 capsule by ity of 00:00: mouth in [place] [address] the Medical morning Branch and 1 capsule in the evening. lamoTRIgine 2021-02 Yes [id number] 50mg Take 2 [facility] 25 mg 0-20 tablets by ity of tablet 00:00: mouth in [place] [address] the [facility] morning Branch and 2 tablets in the evening. lithium 600 2021-02 Yes [id number] 600mg Take 1 [facility] mg capsule 0-20 capsule by ity of 00:00: mouth in [place] [address] the [facility] morning Branch and 1 capsule in the evening. lamoTRIgine 2021-02 Yes [id number] 50mg Take 2 [facility] 25 mg 0-20 tablets by ity of tablet 00:00: mouth in [place] [address] the [facility] morning Branch and 2 tablets in the evening. lithium 600 2021-02 Yes [id number] 600mg Take 1 [facility] mg capsule 0-20 capsule by ity of 00:00: mouth in [place] [address] the [facility] morning Branch and 1 capsule in the evening. lamoTRIgine 2021-02 Yes [id number] 50mg Take 2 [facility] 25 mg 0-20 tablets by ity of tablet 00:00: mouth in [place] [address] the [facility] morning Branch and 2 tablets in the evening. lithium 600 2021-02 Yes [id number] 600mg Take 1 [facility] mg capsule 0-20 capsule by ity of 00:00: mouth in [place] [address] the [facility] morning Branch and 1 capsule in the evening. lithium 600 2021-02 Yes [id number] 600mg Take 1 [facility] mg capsule 0-20 capsule by ity of 00:00: mouth in [place] 00 the Medical morning Branch and 1 capsule in the evening. lithium 600 2021- Yes [id number] 600mg Take 1 [facility] mg capsule 0-20 capsule by ity of 00:00: mouth in [place] 00 the Medical morning Branch and 1 capsule in the evening. lithium 600 2021-1 Yes [id number] 600mg Take 1 [facility] mg capsule 0-20 capsule by ity of 00:00: mouth in [place] 00 the Medical morning Branch and 1 capsule in the evening. lithium 600 2021- Yes [id number] 600mg Take 1 [facility] mg capsule 0-20 capsule by ity of 00:00: mouth in [place] 00 the Medical morning Branch and 1 capsule in the evening. lithium 600 2021-2022- No [id number] 600mg Take 1 [facility] mg capsule 0-20 01-04 capsule by it y of 00:00: 00:00 mouth in [place] 00 :00 the Medical morning Branch and 1 capsule in the evening. lithium 600 2021-2022- No [id number] 600mg Take 1 [facility] mg capsule 0-20 01-04 capsule by it y of 00:00: 00:00 mouth in [place] 00 :00 the Medical morning Branch and 1 capsule in the evening. lithium 600 2021-2022- No [id number] 600mg Take 1 [facility] mg capsule 0-20 01-04 capsule by it y of 00:00: 00:00 mouth in [place] 00 :00 the Medical morning Branch and 1 capsule in the evening. lithium 600 2021-2022- No [id number] 600mg Take 1 [facility] mg capsule 0-20 01-04 capsule by it y of 00:00: 00:00 mouth in [place] 00 :00 the Medical morning Branch and 1 capsule in the evening. lithium 600 2021-2022- No [id number] 600mg Take 1 [facility] mg capsule 0-20 01-04 capsule by it y of 00:00: 00:00 mouth in [place] 00 :00 the Medical morning Branch and 1 capsule in the evening. lithium 600 2021-3- No [id number] 600mg Take 1 [facility] mg capsule 0-20 01-04 capsule by it y of 00:00: 00:00 mouth in [place] 00 :00 the Medical morning Branch and 1 capsule in the evening. lithium 600 2021-2022- No [id number] 600mg Take 1 [facility] mg capsule 0-20 01-04 capsule by it y of 00:00: 00:00 mouth in [place] 00 :00 the Medical morning Branch and 1 capsule in the evening. lithium 600 2021-02- No [id number] 600mg Take 1 [facility] mg capsule 0-20 - capsule by it y of 00:00: 00:00 mouth in [place] 00 :00 the Medical morning Branch and 1 capsule in the evening. lamoTRIgine 2021-02- No [id number] 50mg Take 2 [facility] 25 mg 0-20 11-30 tablets by ity of tablet 00:00: 00:00 mouth in [place] 00 :00 the Medical morning Branch and 2 tablets in the evening. lamoTRIgine 2021-02- No [id number] 50mg Take 2 [facility] 25 mg 0-20 11-30 tablets by ity of tablet 00:00: 00:00 mouth in [place] 00 :00 the Medical morning Branch and 2 tablets in the evening. lamoTRIgine 2021-02- No [id number] 50mg Take 2 [facility] 25 mg 0-20 11-30 tablets by ity of tablet 00:00: 00:00 mouth in [place] 00 :00 the Medical morning Branch and 2 tablets in the evening. lamoTRIgine 2021-02- No [id number] 50mg Take 2 [facility] 25 mg 0-20 11-30 tablets by ity of tablet 00:00: 00:00 mouth in [place] 00 :00 the Medical morning Branch and 2 tablets in the evening. lamoTRIgine 2021-02- No [id number] 50mg Take 2 [facility] 25 mg 0-20 11-30 tablets by ity of tablet 00:00: 00:00 mouth in [place] 00 :00 the Medical morning Branch and 2 tablets in the evening. clonazePAM 2021-02- No [id number] Take 1 [facility] 1 mg tablet 0-20 11-28 tablet by it y of 00:00: 00:00 mouth [place] 00 :00 twice Medical daily as Branch needed for anxiety. clonazePAM 2021-02- No [id number] Take 1 [facility] 1 mg tablet 0-20 11-28 tablet by it y of 00:00: 00:00 mouth [place] 00 :00 twice Medical daily as Branch needed for anxiety. clonazePAM 2021-02- No [id number] Take 1 [facility] 1 mg tablet 0-20 11-28 tablet by it y of 00:00: 00:00 mouth [place] 00 :00 twice Medical daily as Branch needed for anxiety. clonazePAM 2021-02- No [id number] Take 1 [facility] 1 mg tablet 0-20 11-28 tablet by it y of 00:00: 00:00 mouth [place] 00 :00 twice Medical daily as Branch needed for anxiety. clonazePAM 2021-02- No [id number] Take 1 [facility] 1 mg tablet 0-20 11-28 tablet by it y of 00:00: 00:00 mouth [place] 00 :00 twice Medical daily as Branch needed for anxiety. lamoTRIgine Yes [id number] 50mg Take 2 [facility] 25 mg 8-26 tablets by ity of tablet 00:00: mouth in [place] 00 the Medical morning Branch and 2 tablets in the evening. lamoTRIgine 2021- No [id number] 50mg Take 2 [facility] 25 mg 8-26 10-19 tablets by ity of tablet 00:00: 00:00 mouth in [place] 00 :00 the Medical morning Branch and 2 tablets in the evening. lamoTRIgine 2021- No [id number] 50mg Take 2 [facility] 25 mg 8-26 10-19 tablets by ity of tablet 00:00: 00:00 mouth in [place] 00 :00 the Medical morning Branch and 2 tablets in the evening. clonazePAM Yes [id number] Take no [facility] 1 mg tablet 8-25 more than ity of 00:00: 1 mg twice [place] 00 daily as Medical needed for Branch anxiety lithium 600 2021-0 Yes [id number] 600mg Take 1 [facility] mg capsule 8-25 capsule by ity of 00:00: mouth in [place] 00 the Medical morning Branch and 1 capsule in the evening. clonazePAM 2021- No [id number] Take no [facility] 1 mg tablet 8-25 10-19 more than it y of 00:00: 00:00 1 mg twice [place] 00 :00 daily as Medical needed for Branch anxiety lithium 600 2021-0 2021- No [id number] 600mg Take 1 [facility] mg capsule 8-25 10-19 capsule by it y of 00:00: 00:00 mouth in [place] 00 :00 the Medical morning Branch and 1 capsule in the evening. clonazePAM 2021- No [id number] Take no [facility] 1 mg tablet 8-25 10-19 more than it y of 00:00: 00:00 1 mg twice [place] 00 :00 daily as Medical needed for Branch anxiety lithium 600 2021-2021- No [id number] 600mg Take 1 [facility] mg capsule 8-25 10-19 capsule by it y of 00:00: 00:00 mouth in [place] 00 :00 the Medical morning Branch and 1 capsule in the evening. Lamotrigine 2021-2021- No [id number] 50mg Take 1 [facility] 50 mg 8- 08-26 tablet by ity of tablet 00:00: 00:00 mouth in [place] 00 :00 the Medical morning Branch and 1 tablet in the evening. Lamotrigine 2021-2021- No [id number] 50mg Take 1 [facility] 50 mg 8- 08-25 tablet by ity of tablet 00:00: 00:00 mouth in [place] 00 :00 the Medical morning Branch and 1 tablet in the evening. DULoxetine 2021- Yes [id number] 60mg Take 1 [facility] 60 mg 7-27 capsule by [facility]y of capsule 00:00: mouth in [place] 00 the Medical morning Branch and 1 capsule in the evening. DULoxetine 2021-0 2021- No [id number] 60mg Take 1 [facility] 60 mg 7-27 10-24 capsule by ity of capsule 00:00: 00:00 mouth in [place] 00 :00 the Medical morning Branch and 1 capsule in the evening. DULoxetine 2021-2021- No [id number] 60mg Take 1 [facility] 60 mg 7-27 10-24 capsule by ity of capsule 00:00: 00:00 mouth in [place] 00 :00 the Medical morning Branch and 1 capsule in the evening. DULoxetine 2021-0 2021- No [id number] 60mg Take 1 [facility] 60 mg 7-27 10-24 capsule by ity of capsule 00:00: 00:00 mouth in [place] 00 :00 the Medical morning Branch and 1 capsule in the evening. Lamotrigine 2021-2021- No [id number] 50mg Take 1 [facility] 50 mg 7-18 08-11 tablet by [facility]y of tablet 00:00: 00:00 mouth in [place] 00 :00 the Medical morning Branch and 1 tablet in the evening. lithium 600 2021-0 2021- No [id number] 600mg Take 1 [facility] mg capsule 7-13 08-25 capsule by it y of 00:00: 00:00 mouth in [place] 00 :00 the Medical morning Branch and 1 capsule in the evening. traZODone 2021-0 Yes [id number] 50mg Take 1 [facility] 50 mg 6-28 tablet by ity of tablet 00:00: mouth at [place] 00 bedtime. Medical May cut Branch tablet in half. DULoxetine 2021-0 Yes [id number] 60mg Take 1 [facility] 60 mg 6-28 capsule by [facility]y of capsule 00:00: mouth 2 [place] [address] (two) Medical times Branch daily. traZODone 2021-0 Yes [id number] 50mg Take 1 [facility] 50 mg 6-28 tablet by ity of tablet 00:00: mouth at [place] 00 bedtime. Medical May cut Branch tablet in half. DULoxetine 2021-0 Yes [id number] 60mg Take 1 [facility] n[facility] 60 mg 6-28 capsule by ity of capsule 00:00: mouth 2 [place] [address] (two) Medical times Branch daily. traZODone 2021-0 Yes [id number] 50mg Take 1 [facility] 50 mg 6-28 tablet by [facility]y of tablet 00:00: mouth at [place] [address] bedtime. Medical May cut Branch tablet in half. DULoxetine 2021-0 Yes [id number] 60mg Take 1 [facility] 60 mg 6-28 capsule by [facility]y of capsule 00:00: mouth 2 [place] (two) Medical times Branch daily. DULoxetine 2021-0 Yes [id number] 60mg Take 1 [facility] 60 mg 6-28 capsule by [facility]y of capsule 00:00: mouth 2 [place] [address] (two) Medical times Branch daily. traZODone 2021-0 2021- No [id number] 50mg Take 1 [facility] 50 mg 6-28 11-21 tablet by [facility]y of tablet 00:00: 00:00 mouth at [place] 00 :00 bedtime. Medical May cut Branch tablet in half. traZODone 2021-0 2021- No [id number] 50mg Take 1 [facility] 50 mg 6-28 11-21 tablet by ity of tablet 00:00: 00:00 mouth at [place] 00 :00 bedtime. Medical May cut Branch tablet in half. traZODone 2021-0 2021- No [id number] 50mg Take 1 [facility] 50 mg 6-28 11-21 tablet by ity of tablet 00:00: 00:00 mouth at [place] 00 :00 bedtime. Medical May cut Branch tablet in half. traZODone 2021- No [id number] 50mg Take 1 [facility] 50 mg 6-28 11-21 tablet by ity of tablet 00:00: 00:00 mouth at [place] 00 :00 bedtime. Medical May cut Branch tablet in half. traZODone 2021- No [id number] 50mg Take 1 [facility] 50 mg 6-28 -21 tablet by ity of tablet 00:00: 00:00 mouth at [place] 00 :00 bedtime. Medical May cut Branch tablet in half. clonazePAM 2021- No [id number] Take no [facility] 1 mg tablet -10-06 more than it y of 00:00: 00:00 1 mg twice [place] 00 :00 daily as Medical needed for Branch anxiety vitamin Yes [id number] 1000ug Take 1 U nivers B-12 1,000 4-11 tablet by ity of mcg tablet 00:00: mouth [place] 00 daily. Medical Branch cyanocobala Yes [id number] 1000ug 1 mL by [facility] min 1,000 4-11 Intramuscu ity of mcg/mL 00:00: lar route [place] injection 00 weekly. Medical Branch vitamin 0 Yes [id number] 1000ug Take 1 U nivers B-12 1,000 4-11 tablet by ity of mcg tablet 00:00: mouth [place] 00 daily. Medical Branch cyanocobala Yes [id number] 1000ug 1 mL by [facility] min 1,000 4-11 Intramuscu ity of mcg/mL 00:00: lar route [place] injection 00 weekly. Medical Branch vitamin 0 Yes [id number] 1000ug Take 1 U nivers B-12 1,000 4-11 tablet by ity of mcg tablet 00:00: mouth [place] 00 daily. Medical Branch cyanocobala Yes [id number] 1000ug 1 mL by [facility] min 1,000 4-11 Intramuscu ity of mcg/mL 00:00: lar route [place] injection 00 weekly. Medical Branch vitamin 2021-0 Yes [id number] 1000ug Take 1 U nivers B-12 1,000 4-11 tablet by ity of mcg tablet 00:00: mouth [place] 00 daily. Medical Branch cyanocobala 2021-0 Yes [id number] 1000ug 1 mL by [facility] min 1,000 4-11 Intramuscu ity of mcg/mL 00:00: lar route [place] injection 00 weekly. Medical Branch vitamin 2021-0 Yes [id number] 1000ug Take 1 U nivers B-12 1,000 4-11 tablet by ity of mcg tablet 00:00: mouth [place] 00 daily. Medical Branch cyanocobala 2021-0 Yes [id number] 1000ug 1 mL by [facility] min 1,000 4-11 Intramuscu ity of mcg/mL 00:00: lar route [place] injection 00 weekly. Medical Branch vitamin 2021-0 Yes [id number] 1000ug Take 1 U nivers B-12 1,000 4-11 tablet by ity of mcg tablet 00:00: mouth [place] 00 daily. Medical Branch cyanocobala 2021-0 Yes [id number] 1000ug 1 mL by [facility] min 1,000 4-11 Intramuscu ity of mcg/mL 00:00: lar route [place] injection 00 weekly. [facility] vitamin 2021-0 Yes [id number] 1000ug Take 1 U nivers B-12 1,000 4-11 tablet by ity of mcg tablet 00:00: mouth [place] 00 daily. [facility] cyanocobala 2021-0 Yes [id number] 1000ug 1 mL by [facility] min 1,000 4-11 [facility] of mcg/mL 00:00: lar route [place] injection 00 weekly. [facility] vitamin 2021-0 Yes [id number] 1000ug Take 1 U nivers B-12 1,000 4-11 tablet by ity of mcg tablet 00:00: mouth [place] 00 daily. [facility] cyanocobala 2021-0 Yes [id number] 1000ug 1 mL by [facility] min 1,000 4-11 [facility]y of mcg/mL 00:00: lar route [place] injection 00 weekly. [facility] vitamin 2021-0 Yes [id number] 1000ug Take 1 U nivers B-12 1,000 4-11 tablet by ity of mcg tablet 00:00: mouth [place] 00 daily. [facility] cyanocobala 2021-0 Yes [id number] 1000ug 1 mL by [facility] min 1,000 4-11 Intr[facility]cu [facility]y of mcg/mL 00:00: lar route [place] injection 00 weekly. [facility] vitamin 2021-0 Yes [id number] 1000ug Take 1 U nivers B-12 1,000 4-11 tablet by ity of mcg tablet 00:00: mouth [place] 00 daily. [facility] cyanocobala 2021-0 Yes [id number] 1000ug 1 mL by [facility] min 1,000 4-11 Intr[facility]y of mcg/mL 00:00: lar route [place] injection 00 weekly. [facility] vitamin 2021-0 Yes [id number] 1000ug Take 1 U nivers B-12 1,000 4-11 tablet by ity of mcg tablet 00:00: mouth [place] 00 daily. [facility] cyanocobala 2021-0 Yes [id number] 1000ug 1 mL by [facility] min 1,000 4-11 Intr[facility]y of mcg/mL 00:00: lar route [place] injection 00 weekly. [facility] vitamin 2021-0 Yes [id number] 1000ug Take 1 U nivers B-12 1,000 4-11 tablet by ity of mcg tablet 00:00: mouth [place] 00 daily. [facility] cyanocobala 2021-0 Yes [id number] 1000ug 1 mL by [facility] min 1,000 4-11 Intramuscu [facility]y of mcg/mL 00:00: lar route [place] injection 00 weekly. [facility] vitamin 2021-0 Yes [id number] 1000ug Take 1 U nivers B-12 1,000 4-11 tablet by ity of mcg tablet 00:00: mouth [place] 00 daily. [facility] cyanocobala 2021-0 Yes [id number] 1000ug 1 mL by [facility] min 1,000 4-11 Intr[facility]cu [facility]y of mcg/mL 00:00: lar route [place] injection 00 weekly. [facility] vitamin 2021-0 Yes [id number] 1000ug Take 1 U nivers B-12 1,000 4-11 tablet by ity of mcg tablet 00:00: mouth [place] 00 daily. [facility] cyanocobala 2021-0 Yes [id number] 1000ug 1 mL by [facility] min 1,000 4-11 Intr[facility]y of mcg/mL 00:00: lar route [place] injection 00 weekly. [facility] vitamin 2-0 Yes [id number] 1000ug Take 1 U nivers B-12 1,000 4-11 tablet by ity of mcg tablet 00:00: mouth [place] 00 daily. [facility] cyanocobala 2021-0 Yes [id number] 1000ug 1 mL by [facility] min 1,000 4-11 Intr[facility]y of mcg/mL 00:00: lar route [place] injection 00 weekly. [facility] vitamin 2021-0 Yes [id number] 1000ug Take 1 U nivers B-12 1,000 4-11 tablet by ity of mcg tablet 00:00: mouth [place] 00 daily. [facility] cyanocobala 0 Yes [id number] 1000ug 1 mL by [facility] min 1,000 4-11 Intramuscu [facility]y of mcg/mL 00:00: lar route [place] injection 00 weekly. [facility] vitamin 2021-0 Yes [id number] 1000ug Take 1 U nivers B-12 1,000 4-11 tablet by ity of mcg tablet 00:00: mouth [place] 00 daily. [facility] cyanocobala 2021-0 Yes [id number] 1000ug 1 mL by [facility] min 1,000 4-11 Intramuscu [facility]y of mcg/mL 00:00: lar route [place] injection 00 weekly. [facility] vitamin 2021-0 Yes [id number] 1000ug Take 1 U nivers B-12 1,000 4-11 tablet by ity of mcg tablet 00:00: mouth [place] 00 daily. [facility] cyanocobala 2021-0 Yes [id number] 1000ug 1 mL by [facility] min 1,000 4-11 Intr[facility]cu [facility]y of mcg/mL 00:00: lar route [place] injection 00 weekly. [facility] vitamin 2021-0 Yes [id number] 1000ug Take 1 U nivers B-12 1,000 4-11 tablet by ity of mcg tablet 00:00: mouth [place] 00 daily. [facility] cyanocobala 2021-0 Yes [id number] 1000ug 1 mL by [facility] min 1,000 4-11 Intr[facility]y of mcg/mL 00:00: lar route [place] injection 00 weekly. [facility] Branch vitamin 2021-0 Yes [id number] 1000ug Take 1 U nivers B-12 1,000 4-11 tablet by ity of mcg tablet 00:00: mouth [place] 00 daily. [facility] cyanocobala 2021-0 Yes [id number] 1000ug 1 mL by [facility] min 1,000 4-11 Intramuscu [facility]y of mcg/mL 00:00: lar route [place] injection 00 weekly. [facility] vitamin 2021-0 Yes [id number] 1000ug Take 1 U nivers B-12 1,000 4-11 tablet by ity of mcg tablet 00:00: mouth [place] 00 daily. [facility] cyanocobala 2021-0 Yes [id number] 1000ug 1 mL by [facility] min 1,000 4-11 Intr[facility]cu [facility]y of mcg/mL 00:00: lar route [place] injection 00 weekly. [facility] vitamin 2021-0 Yes [id number] 1000ug Take 1 U nivers B-12 1,000 4-11 tablet by ity of mcg tablet 00:00: mouth [place] 00 daily. [facility] cyanocobala 2021-0 Yes [id number] 1000ug 1 mL by [facility] min 1,000 4-11 Intr[facility]cu [facility]y of mcg/mL 00:00: lar route [place] injection 00 weekly. [facility] vitamin 2021-0 Yes [id number] 1000ug Take 1 U nivers B-12 1,000 4-11 tablet by ity of mcg tablet 00:00: mouth [place] 00 daily. [facility] cyanocobala 2021-0 Yes [id number] 1000ug 1 mL by [facility] min 1,000 4-11 Intramuscu [facility]y of mcg/mL 00:00: lar route [place] injection 00 weekly. [facility] vitamin 2021-0 Yes [id number] 1000ug Take 1 U nivers B-12 1,000 4-11 tablet by ity of mcg tablet 00:00: mouth [place] 00 daily. [facility] cyanocobala 2021-0 Yes [id number] 1000ug 1 mL by [facility] min 1,000 4-11 Intramuscu ity of mcg/mL 00:00: lar route [place] injection 00 weekly. [facility] Branch vitamin 2021-0 Yes [id number] 1000ug Take 1 U nivers B-12 1,000 4-11 tablet by ity of mcg tablet 00:00: mouth [place] 00 daily. [facility] cyanocobala 2021-0 Yes [id number] 1000ug 1 mL by [facility] min 1,000 4-11 Intramuscu [facility]y of mcg/mL 00:00: lar route [place] injection 00 weekly. [facility] vitamin 2021-0 Yes [id number] 1000ug Take 1 U nivers B-12 1,000 4-11 tablet by ity of mcg tablet 00:00: mouth [place] 00 daily. [facility] cyanocobala 2021-0 Yes [id number] 1000ug 1 mL by [facility] min 1,000 4-11 Intramuscu [facility]y of mcg/mL 00:00: lar route [place] injection 00 weekly. [facility] vitamin 2021-0 Yes [id number] 1000ug Take 1 U nivers B-12 1,000 4-11 tablet by ity of mcg tablet 00:00: mouth [place] 00 daily. [facility] cyanocobala 2021-0 Yes [id number] 1000ug 1 mL by [facility] min 1,000 4-11 Intr[facility]y of mcg/mL 00:00: lar route [place] injection 00 weekly. [facility] vitamin 2021-0 Yes [id number] 1000ug Take 1 U nivers B-12 1,000 4-11 tablet by ity of mcg tablet 00:00: mouth [place] 00 daily. [facility] cyanocobala 2021-0 Yes [id number] 1000ug 1 mL by [facility] min 1,000 4-11 Intramuscu [facility]y of mcg/mL 00:00: lar route [place] injection 00 weekly. [facility] vitamin 2021-0 Yes [id number] 1000ug Take 1 U nivers B-12 1,000 4-11 tablet by ity of mcg tablet 00:00: mouth [place] 00 daily. [facility] cyanocobala 2021-0 Yes [id number] 1000ug 1 mL by [facility] min 1,000 4-11 Intramuscu ity of mcg/mL 00:00: lar route [place] injection 00 weekly. [facility] vitamin 2021-0 Yes [id number] 1000ug Take 1 U nivers B-12 1,000 4-11 tablet by ity of mcg tablet 00:00: mouth [place] 00 daily. [facility] cyanocobala 2021-0 Yes [id number] 1000ug 1 mL by [facility] min 1,000 4-11 Intramuscu ity of mcg/mL 00:00: lar route [place] injection 00 weekly. [facility] Branch vitamin 2-0 Yes [id number] 1000ug Take 1 U nivers B-12 1,000 4-11 tablet by ity of mcg tablet 00:00: mouth [place] 00 daily. [facility] cyanocobala 2021-0 Yes [id number] 1000ug 1 mL by [facility] min 1,000 4-11 Intramuscu ity of mcg/mL 00:00: lar route [place] injection 00 weekly. [facility] vitamin 2021-0 Yes [id number] 1000ug Take 1 U nivers B-12 1,000 4-11 tablet by ity of mcg tablet 00:00: mouth [place] 00 daily. [facility] cyanocobala 2021-0 Yes [id number] 1000ug 1 mL by [facility] min 1,000 4-11 Intramuscu [facility]y of mcg/mL 00:00: lar route [place] injection 00 weekly. [facility] vitamin 2021-0 Yes [id number] 1000ug Take 1 U nivers B-12 1,000 4-11 tablet by ity of mcg tablet 00:00: mouth [place] 00 daily. [facility] Branch cyanocobala 2021-0 Yes [id number] 1000ug 1 mL by [facility] min 1,000 4-11 Intramuscu ity of mcg/mL 00:00: lar route [place] injection 00 weekly. [facility] vitamin 2021-0 Yes [id number] 1000ug Take 1 U nivers B-12 1,000 4-11 tablet by ity of mcg tablet 00:00: mouth [place] 00 daily. [facility] cyanocobala 2021-0 Yes [id number] 1000ug 1 mL by [facility] min 1,000 4-11 Intramuscu [facility]y of mcg/mL 00:00: lar route [place] injection 00 weekly. [facility] vitamin 2-0 Yes [id number] 1000ug Take 1 U nivers B-12 1,000 4-11 tablet by ity of mcg tablet 00:00: mouth [place] 00 daily. [facility] cyanocobala 2021-0 Yes [id number] 1000ug 1 mL by [facility] min 1,000 4-11 Intramuscu ity of mcg/mL 00:00: lar route [place] injection 00 weekly. [facility] Branch vitamin 2021-0 Yes [id number] 1000ug Take 1 U nivers B-12 1,000 4-11 tablet by ity of mcg tablet 00:00: mouth [place] 00 daily. [facility] cyanocobala 2021-0 Yes [id number] 1000ug 1 mL by [facility] min 1,000 4-11 Intramuscu ity of mcg/mL 00:00: lar route [place] injection 00 weekly. [facility] vitamin 2021-0 Yes [id number] 1000ug Take 1 U nivers B-12 1,000 4-11 tablet by ity of mcg tablet 00:00: mouth [place] 00 daily. [facility] cyanocobala 2021-0 Yes [id number] 1000ug 1 mL by [facility] min 1,000 4-11 Intramuscu ity of mcg/mL 00:00: lar route [place] injection 00 weekly. [facility] vitamin 2021-0 Yes [id number] 1000ug Take 1 U nivers B-12 1,000 4-11 tablet by ity of mcg tablet 00:00: mouth [place] 00 daily. [facility] cyanocobala 2021-0 Yes [id number] 1000ug 1 mL by [facility] min 1,000 4-11 Intramuscu ity of mcg/mL 00:00: lar route [place] injection 00 weekly. [facility] vitamin 2021-0 Yes [id number] 1000ug Take 1 U nivers B-12 1,000 4-11 tablet by ity of mcg tablet 00:00: mouth [place] 00 daily. [facility] cyanocobala 2021-0 Yes [id number] 1000ug 1 mL by [facility] min 1,000 4-11 Intramuscu ity of mcg/mL 00:00: lar route [place] injection 00 weekly. [facility] vitamin 2021-0 Yes [id number] 1000ug Take 1 U nivers B-12 1,000 4-11 tablet by ity of mcg tablet 00:00: mouth [place] 00 daily. [facility] cyanocobala 2021-0 Yes [id number] 1000ug 1 mL by [facility] min 1,000 4-11 Intramuscu [facility]y of mcg/mL 00:00: lar route [place] injection 00 weekly. [facility] vitamin 2021-0 Yes [id number] 1000ug Take 1 U nivers B-12 1,000 4-11 tablet by ity of mcg tablet 00:00: mouth [place] 00 daily. [facility] cyanocobala 2021-0 Yes [id number] 1000ug 1 mL by [facility] min 1,000 4-11 Intramuscu ity of mcg/mL 00:00: lar route [place] injection 00 weekly. [facility] losartan 2021-0 Yes 20mg Take 20 mg [facility] vers potassium 4-05 by mouth. ity o f (LOSARTAN 09:24: [place] ORAL) [address] [place] [address] FUROSEMIDE 2021-0 Yes 40mg Take 40 mg U nivers ORAL 4-05 by mouth ity of 09:24: daily. [address] Branch losartan 2021-0 Yes 20mg Take 20 mg [facility] vers potassium 4-05 by mouth. ity o f (LOSARTAN 09:24: [place] ORAL) [address] [place] [address] FUROSEMIDE 2021-0 Yes 40mg Take 40 mg U nivers ORAL 4-05 by mouth ity of 09:24: daily. [address] losartan 2021-0 Yes 20mg Take 20 mg [facility] vers potassium 4-05 by mouth. ity o f (LOSARTAN 09:24: [place] ORAL) [address] [place] [address] FUROSEMIDE 2021-0 Yes 40mg Take 40 mg U nivers ORAL 4-05 by mouth ity of 09:24: daily. [address] losartan 2021-0 Yes 20mg Take 20 mg [facility] vers potassium 4-05 by mouth. ity o f (LOSARTAN 09:24: [place] ORAL) [address] [place] [address] FUROSEMIDE 2021-0 Yes 40mg Take 40 mg U nivers ORAL 4-05 by mouth ity of 09:24: daily. [address] losartan 2021-0 Yes 20mg Take 20 mg [facility] vers potassium 4-05 by mouth. ity o f (LOSARTAN 09:24: [place] ORAL) [address] [place] [address] FUROSEMIDE 2021-0 Yes 40mg Take 40 mg U nivers ORAL 4-05 by mouth ity of 09:24: daily. [address] losartan 2021-0 Yes 20mg Take 20 mg [facility] vers potassium 4-05 by mouth. ity o f (LOSARTAN 09:24: [place] ORAL) [address] [place] [address] FUROSEMIDE 2021-0 Yes 40mg Take 40 mg U nivers ORAL 4-05 by mouth ity of 09:24: daily. [address] losartan 2021-0 Yes 20mg Take 20 mg [facility] vers potassium 4-05 by mouth. ity o f (LOSARTAN 09:24: [place] ORAL) [address] [place] [address] FUROSEMIDE 2021-0 Yes 40mg Take 40 mg U nivers ORAL 4-05 by mouth ity of 09:24: daily. [address] losartan 2021-0 Yes 20mg Take 20 mg [facility] vers potassium 4-05 by mouth. ity o f (LOSARTAN 09:24: [place] ORAL) [address] [place] [address] FUROSEMIDE 2022-0 Yes 40mg Take 40 mg U nivers ORAL 4-05 by mouth ity of 09:24: daily. [address] losartan 2021-0 Yes 20mg Take 20 mg [facility] vers potassium 4-05 by mouth. ity o f (LOSARTAN 09:24: [place] ORAL) [address] [place] [address] FUROSEMIDE 2021-0 Yes 40mg Take 40 mg U nivers ORAL 4-05 by mouth ity of 09:24: daily. [address] losartan 2021-0 Yes 20mg Take 20 mg [facility] vers potassium 4-05 by mouth. ity o f (LOSARTAN 09:24: [place] ORAL) [address] [place] [address] FUROSEMIDE 2021-0 Yes 40mg Take 40 mg U nivers ORAL 4-05 by mouth ity of 09:24: daily. [address] losartan 2021-0 Yes 20mg Take 20 mg [facility] vers potassium 4-05 by mouth. ity o f (LOSARTAN 09:24: [place] ORAL) [address] [place] [address] FUROSEMIDE 2021-0 Yes 40mg Take 40 mg U nivers ORAL 4-05 by mouth ity of 09:24: daily. [address] losartan 2021-0 Yes 20mg Take 20 mg [facility] vers potassium 4-05 by mouth. ity o f (LOSARTAN 09:24: [place] ORAL) [address] [place] [address] FUROSEMIDE 2021-0 Yes 40mg Take 40 mg U nivers ORAL 4-05 by mouth ity of 09:24: daily. [address] losartan 2021-0 Yes 20mg Take 20 mg [facility] vers potassium 4-05 by mouth. ity o f (LOSARTAN 09:24: [place] ORAL) [address] [place] [address] FUROSEMIDE 2021-0 Yes 40mg Take 40 mg U nivers ORAL 4-05 by mouth ity of 09:24: daily. [address] losartan 2021-0 Yes 20mg Take 20 mg [facility] vers potassium 4-05 by mouth. ity o f (LOSARTAN 09:24: [place] ORAL) [address] [place] [address] FUROSEMIDE 2021-0 Yes 40mg Take 40 mg U nivers ORAL 4-05 by mouth ity of 09:24: daily. [address] losartan 2021-0 Yes 20mg Take 20 mg [facility] vers potassium 4-05 by mouth. ity o f (LOSARTAN 09:24: [place] ORAL) [address] [place] [address] FUROSEMIDE 2021-0 Yes 40mg Take 40 mg U nivers ORAL 4-05 by mouth ity of 09:24: daily. [address] losartan 2021-0 Yes 20mg Take 20 mg [facility] vers potassium 4-05 by mouth. ity o f (LOSARTAN 09:24: [place] ORAL) [address] [place] [address] FUROSEMIDE 2021-0 Yes 40mg Take 40 mg U nivers ORAL 4-05 by mouth ity of 09:24: daily. [address] losartan 2021-0 Yes 20mg Take 20 mg [facility] vers potassium 4-05 by mouth. ity o f (LOSARTAN 09:24: [place] ORAL) [address] [place] [address] FUROSEMIDE 2021-0 Yes 40mg Take 40 mg U nivers ORAL 4-05 by mouth ity of 09:24: daily. [address] losartan 2021-0 Yes 20mg Take 20 mg [facility] vers potassium 4-05 by mouth. ity o f (LOSARTAN 09:24: [place] ORAL) [address] [place] [address] FUROSEMIDE 2021-0 Yes 40mg Take 40 mg U nivers ORAL 4-05 by mouth ity of 09:24: daily. [address] losartan 2021-0 Yes 20mg Take 20 mg [facility] vers potassium 4-05 by mouth. ity o f (LOSARTAN 09:24: [place] ORAL) [address] [place] [address] FUROSEMIDE 2021-0 Yes 40mg Take 40 mg U nivers ORAL 4-05 by mouth ity of 09:24: daily. [address] losartan 2021-0 Yes 20mg Take 20 mg [facility] vers potassium 4-05 by mouth. ity o f (LOSARTAN 09:24: [place] ORAL) [address] [place] [address] FUROSEMIDE 2021-0 Yes 40mg Take 40 mg U nivers ORAL 4-05 by mouth ity of 09:24: daily. [address] losartan 2021-0 Yes 20mg Take 20 mg [facility] vers potassium 4-05 by mouth. ity o f (LOSARTAN 09:24: [place] ORAL) [address] [place] [address] FUROSEMIDE 2021-0 Yes 40mg Take 40 mg U nivers ORAL 4-05 by mouth ity of 09:24: daily. [address] losartan 2021-0 Yes 20mg Take 20 mg [facility] vers potassium 4-05 by mouth. ity o f (LOSARTAN 09:24: [place] ORAL) [address] [place] [address] FUROSEMIDE 2021-0 Yes 40mg Take 40 mg U nivers ORAL 4-05 by mouth ity of 09:24: daily. [address] losartan 2021-0 Yes 20mg Take 20 mg [facility] vers potassium 4-05 by mouth. ity o f (LOSARTAN 09:24: [place] ORAL) [address] [place] [address] FUROSEMIDE 2021-0 Yes 40mg Take 40 mg U nivers ORAL 4-05 by mouth ity of 09:24: daily. [address] losartan 2021-0 Yes 20mg Take 20 mg [facility] vers potassium 4-05 by mouth. ity o f (LOSARTAN 09:24: [place] ORAL) [address] [place] [address] FUROSEMIDE 2021-0 Yes 40mg Take 40 mg U nivers ORAL 4-05 by mouth ity of 09:24: daily. [address] losartan 2021-0 Yes 20mg Take 20 mg [facility] vers potassium 4-05 by mouth. ity o f (LOSARTAN 09:24: [place] ORAL) [address] [place] [address] FUROSEMIDE 0 Yes 40mg Take 40 mg U nivers ORAL 4-05 by mouth ity of 09:24: daily. [address] losartan 2021-0 Yes 20mg Take 20 mg [facility] vers potassium 4-05 by mouth. ity o f (LOSARTAN 09:24: [place] ORAL) [address] [place] [address] FUROSEMIDE 2021-0 Yes 40mg Take 40 mg U nivers ORAL 4-05 by mouth ity of 09:24: daily. [address] losartan 2021-0 Yes 20mg Take 20 mg [facility] vers potassium 4-05 by mouth. ity o f (LOSARTAN 09:24: [place] ORAL) [address] [place] [address] FUROSEMIDE 2021-0 Yes 40mg Take 40 mg U nivers ORAL 4-05 by mouth ity of 09:24: daily. [address] losartan 2021-0 Yes 20mg Take 20 mg [facility] vers potassium 4-05 by mouth. ity o f (LOSARTAN 09:24: [place] ORAL) [address] [place] [address] FUROSEMIDE 2021-0 Yes 40mg Take 40 mg U nivers ORAL 4-05 by mouth ity of 09:24: daily. [address] losartan 2021-0 Yes 20mg Take 20 mg [facility] vers potassium 4-05 by mouth. ity o f (LOSARTAN 09:24: [place] ORAL) [address] [place] [address] FUROSEMIDE 2021-0 Yes 40mg Take 40 mg U nivers ORAL 4-05 by mouth ity of 09:24: daily. [address] losartan 2021-0 Yes 20mg Take 20 [...] [place] ORAL) 36 [facility] magnesium Yes [id number] 400mg Take 2 [facility] gluconate 4-05 tablets by ity of 200 mg 00:00: mouth 2 [place] tablet 00 (two) Medical times Branch daily. gabapentin Yes [id number] 300mg Take 1 [facility] 300 mg 4-05 capsule by ity of capsule 00:00: mouth 3 [place] 00 (three) Medical times Branch daily. rizatriptan Yes [id number] 5mg Take 1 [facility] 5 mg 4-05 tablet by ity of disintegrat 00:00: mouth [place] ing tablet 00 needed for Med ical Migraine Branch (Take 5mg at the beginning of the headache can repeat 2h after if headaches persists). May repeat in 2 hours if needed magnesium 2022-0 Yes [id number] 400mg Take 2 [facility] gluconate 4-05 tablets by ity of 200 mg 00:00: mouth 2 [place] tablet 00 (two) Medical times Branch daily. gabapentin 2022-0 Yes [id number] 300mg Take 1 [facility] 300 mg 4-05 capsule by ity of capsule 00:00: mouth 3 [place] 00 (three) Medical times Branch daily. rizatriptan 2022-0 Yes [id number] 5mg Take 1 [facility] 5 mg 4-05 tablet by ity of disintegrat 00:00: mouth [place] tablet 00 needed for Med ical Migraine Branch (Take 5mg at the beginning of the headache can repeat 2h after if headaches persists). May repeat in 2 hours if needed magnesium 2022-0 Yes [id number] 400mg Take 2 [facility] gluconate 4-05 tablets by ity of 200 mg 00:00: mouth 2 [place] tablet 00 (two) Medical times Branch daily. gabapentin 2022-0 Yes [id number] 300mg Take 1 [facility] 300 mg 4-05 capsule by ity of capsule 00:00: mouth 3 [place] 00 (three) Medical times Branch daily. rizatriptan 2022-0 Yes [id number] 5mg Take 1 [facility] 5 mg 4-05 tablet by ity of disintegrat 00:00: mouth as [place] tablet 00 needed for Med ical Migraine Branch (Take 5mg at the beginning of the headache can repeat 2h after if headaches persists). May repeat in 2 hours if needed magnesium 2022-0 Yes [id number] 400mg Take 2 [facility] gluconate 4-05 tablets by ity of 200 mg 00:00: mouth 2 [place] tablet 00 (two) Medical times Branch daily. gabapentin 2022-0 Yes [id number] 300mg Take 1 [facility] 300 mg 4-05 capsule by ity of capsule 00:00: mouth 3 [place] 00 (three) Medical times Branch daily. rizatriptan 2022-0 Yes [id number] 5mg Take 1 [facility] 5 mg 4-05 tablet by ity of disintegrat 00:00: mouth [place] tablet 00 needed for Med ical Migraine Branch (Take 5mg at the beginning of the headache can repeat 2h after if headaches persists). May repeat in 2 hours if needed magnesium 2022-0 Yes [id number] 400mg Take 2 [facility] gluconate 4-05 tablets by ity of 200 mg 00:00: mouth 2 [place] tablet 00 (two) Medical times Branch daily. gabapentin 2022-0 Yes [id number] 300mg Take 1 [facility] 300 mg 4-05 capsule by ity of capsule 00:00: mouth 3 [place] 00 (three) Medical times Branch daily. rizatriptan 2022-0 Yes [id number] 5mg Take 1 [facility] 5 mg 4-05 tablet by ity of disintegrat 00:00: mouth as [place] tablet 00 needed for Med ical Migraine Branch (Take 5mg at the beginning of the headache can repeat 2h after if headaches persists). May repeat in 2 hours if needed magnesium 2022-0 Yes [id number] 400mg Take 2 [facility] gluconate 4-05 tablets by ity of 200 mg 00:00: mouth 2 [place] tablet 00 (two) Medical times Branch daily. gabapentin 2022-0 Yes [id number] 300mg Take 1 [facility] 300 mg 4-05 capsule by ity of capsule 00:00: mouth 3 (three) Medical times Branch daily. rizatriptan 2022-0 Yes [id number] 5mg Take 1 [facility] 5 mg 4-05 tablet by ity of disintegrat 00:00: mouth as [place] tablet 00 needed for Med ical Migraine Branch (Take 5mg at the beginning of the headache can repeat 2h after if headaches persists). May repeat in 2 hours if needed magnesium 2022-0 Yes [id number] 400mg Take 2 [facility] gluconate 4-05 tablets by ity of 200 mg 00:00: mouth 2 [place] tablet 00 (two) Medical times Branch daily. gabapentin 2022-0 Yes [id number] 300mg Take 1 [facility] 300 mg 4-05 capsule by ity of capsule 00:00: mouth 3 [place] 00 (three) Medical times Branch daily. rizatriptan 2022-0 Yes [id number] 5mg Take 1 [facility] 5 mg 4-05 tablet by ity of disintegrat 00:00: mouth as [place] tablet 00 needed for Med ical Migraine Branch (Take 5mg at the beginning of the headache can repeat 2h after if headaches persists). May repeat in 2 hours if needed magnesium 2022-0 Yes [id number] 400mg Take 2 [facility] gluconate 4-05 tablets by ity of 200 mg 00:00: mouth 2 [place] tablet 00 (two) Medical times Branch daily. gabapentin 2022-0 Yes [id number] 300mg Take 1 [facility] 300 mg 4-05 capsule by ity of capsule 00:00: mouth 3 [place] 00 (three) Medical times Branch daily. rizatriptan 2022-0 Yes [id number] 5mg Take 1 [facility] 5 mg 4-05 tablet by ity of disintegrat 00:00: mouth as [place] ing tablet 00 needed for Med ical Migraine Branch (Take 5mg at the beginning of the headache can repeat 2h after if headaches persists). May repeat in 2 hours if needed magnesium 2022-0 Yes [id number] 400mg Take 2 [facility] gluconate 4-05 tablets by ity of 200 mg 00:00: mouth 2 [place] tablet 00 (two) Medical times Branch daily. gabapentin 2022-0 Yes [id number] 300mg Take 1 [facility] 300 mg 4-05 capsule by ity of capsule 00:00: mouth 3 (three) Medical times Branch daily. rizatriptan 2022-0 Yes [id number] 5mg Take 1 [facility] 5 mg 4-05 tablet by ity of disintegrat 00:00: mouth as [place] tablet 00 needed for Med ical Migraine Branch (Take 5mg at the beginning of the headache can repeat 2h after if headaches persists). May repeat in 2 hours if needed magnesium 2022-0 Yes [id number] 400mg Take 2 [facility] gluconate 4-05 tablets by ity of 200 mg 00:00: mouth 2 [place] tablet 00 (two) Medical times Branch daily. gabapentin 2022-0 Yes [id number] 300mg Take 1 [facility] 300 mg 4-05 capsule by ity of capsule 00:00: mouth 3 [place] 00 (three) Medical times Branch daily. rizatriptan 2022-0 Yes [id number] 5mg Take 1 [facility] 5 mg 4-05 tablet by ity of disintegrat 00:00: mouth as [place] tablet 00 needed for Med ical Migraine Branch (Take 5mg at the beginning of the headache can repeat 2h after if headaches persists). May repeat in 2 hours if needed magnesium 2022-0 Yes [id number] 400mg Take 2 [facility] gluconate 4-05 tablets by ity of 200 mg 00:00: mouth 2 [place] tablet 00 (two) Medical times Branch daily. gabapentin 2022-0 Yes [id number] 300mg Take 1 [facility] 300 mg 4-05 capsule by ity of capsule 00:00: mouth 3 [place] 00 (three) Medical times [facility] daily. rizatriptan 2022-0 Yes [id number] 5mg Take 1 [facility] 5 [facility]-05 tablet by [facility]at 00:00: mouth as [place] ing tablet 00 needed for Med ical Migraine [facility] (Take 5mg at the beginning of the headache can repeat 2h after if headaches persists). May repeat in 2 hours if needed magnesium 2022-0 Yes [id number] 400mg Take 2 [facility] gluconate 4-05 tablets by [facility] 200 mg 00:00: mouth 2 [place] tablet 00 (two) Medical times Branch daily. gabapentin 2022-0 Yes [id number] 300mg Take 1 [facility] 300 mg 4-05 capsule by [facility] capsule 00:00: mouth 3 [place] 00 (three) Medical times [facility] daily. rizatriptan 2022-0 Yes [id number] 5mg Take 1 [facility] 5 mg 4-05 tablet by [facility] dis[facility]at 00:00: mouth as [place] ing tablet 00 needed for Med ical Migraine [facility] (Take 5mg at the beginning of the headache can repeat 2h after if headaches persists). May repeat in 2 hours if needed magnesium 2022-0 Yes [id number] 400mg Take 2 [facility] gluconate 4-05 tablets by [facility] 200 mg 00:00: mouth 2 [place] tablet 00 (two) Medical times Branch daily. gabapentin 2022-0 Yes [id number] 300mg Take 1 [facility] 300 mg 4-05 capsule by [facility] capsule 00:00: mouth 3 [place] 00 (three) Medical times [facility] daily. rizatriptan 2022-0 Yes [id number] 5mg Take 1 [facility] 5 mg 4-05 tablet by [facility]at 00:00: mouth as [place] ing tablet 00 needed for Med ical Migraine [facility] (Take 5mg at the beginning of the headache can repeat 2h after if headaches persists). May repeat in 2 hours if needed magnesium 2022-0 Yes [id number] 400mg Take 2 [facility] gluconate 4-05 tablets by [facility] 200 mg 00:00: mouth 2 [place] tablet 00 (two) Medical times [facility] daily. gabapentin 2022-0 Yes [id number] 300mg Take 1 [facility] 300 mg 4-05 capsule by [facility] capsule 00:00: mouth 3 [place] 00 (three) Medical times [facility] daily. rizatriptan 2022-0 Yes [id number] 5mg Take 1 [facility] 5 mg 4-05 tablet by [facility] dis[facility]at 00:00: mouth as [place] ing tablet 00 needed for Med ical Migraine [facility] (Take 5mg at the beginning of the headache can repeat 2h after if headaches persists). May repeat in 2 hours if needed magnesium 2022-0 Yes [id number] 400mg Take 2 [facility] gluconate 4-05 tablets by [facility] 200 mg 00:00: mouth 2 [place] tablet 00 (two) Medical times Branch daily. gabapentin 2022-0 Yes [id number] 300mg Take 1 [facility] 300 mg 4-05 capsule by [facility] capsule 00:00: mouth 3 [place] 00 (three) Medical times [facility] daily. rizatriptan 2022-0 Yes [id number] 5mg Take 1 [facility] 5 mg 4-05 tablet by [facility] disintegrat 00:00: mouth as [place] ing tablet 00 needed for Med ical Migraine [facility] (Take 5mg at the beginning of the headache can repeat 2h after if headaches persists). May repeat in 2 hours if needed magnesium 2022-0 Yes [id number] 400mg Take 2 [facility] gluconate 4-05 tablets by [facility] 200 mg 00:00: mouth 2 [place] tablet 00 (two) Medical times Branch daily. gabapentin 2022-0 Yes [id number] 300mg Take 1 [facility] 300 mg 4-05 capsule by [facility] capsule 00:00: mouth 3 [place] 00 (three) Medical times [facility] daily. rizatriptan 2022-0 Yes [id number] 5mg Take 1 [facility] 5 mg 4-05 tablet by [facility] dis[facility]at 00:00: mouth as [place] ing tablet 00 needed for Med ical Migraine [facility] (Take 5mg at the beginning of the headache can repeat 2h after if headaches persists). May repeat in 2 hours if needed magnesium 2022-0 Yes [id number] 400mg Take 2 [facility] gluconate 4-05 tablets by [facility] 200 mg 00:00: mouth 2 [place] tablet 00 (two) Medical times [facility] daily. gabapentin 2022-0 Yes [id number] 300mg Take 1 [facility] 300 mg 4-05 capsule by [facility] capsule 00:00: mouth 3 [place] 00 (three) Medical times [facility] daily. rizatriptan 2022-0 Yes [id number] 5mg Take 1 [facility] 5 mg 4-05 tablet by [facility] disintegrat 00:00: mouth as [place] ing tablet 00 needed for Med ical Migraine [facility] (Take 5mg at the beginning of the headache can repeat 2h after if headaches persists). May repeat in 2 hours if needed magnesium 2022-0 Yes [id number] 400mg Take 2 [facility] gluconate 4-05 tablets by [facility] 200 mg 00:00: mouth 2 [place] tablet 00 (two) Medical times [facility] daily. gabapentin 2022-0 Yes [id number] 300mg Take 1 [facility] 300 mg 4-05 capsule by [facility] capsule 00:00: mouth 3 [place] (three) Medical times [facility] daily. rizatriptan 2022-0 Yes [id number] 5mg Take 1 [facility] 5 mg 4-05 tablet by [facility] disintegrat 00:00: mouth as [place] ing tablet 00 needed for Med ical Migraine Branch (Take 5mg at the beginning of the headache can repeat 2h after if headaches persists). May repeat in 2 hours if needed magnesium 2022-0 Yes [id number] 400mg Take 2 [facility] gluconate 4-05 tablets by [facility] 200 mg 00:00: mouth 2 [place] tablet 00 (two) Medical times Branch daily. gabapentin 2022-0 Yes [id number] 300mg Take 1 [facility] 300 mg 4-05 capsule by [facility] capsule 00:00: mouth 3 [place] 00 (three) Medical times [facility] daily. rizatriptan 2022-0 Yes [id number] 5mg Take 1 [facility] 5 mg 4-05 tablet by [facility] disintegrat 00:00: mouth as [place] ing tablet 00 needed for Med ical Migraine Branch (Take 5mg at the beginning of the headache can repeat 2h after if headaches persists). May repeat in 2 hours if needed magnesium 2022-0 Yes [id number] 400mg Take 2 [facility] gluconate 4-05 tablets by [facility] 200 mg 00:00: mouth 2 [place] tablet 00 (two) Medical times Branch daily. gabapentin 2022-0 Yes [id number] 300mg Take 1 [facility] 300 mg 4-05 capsule by [facility] capsule 00:00: mouth 3 [place] (three) Medical times [facility] daily. rizatriptan 2022-0 Yes [id number] 5mg Take 1 [facility] 5 mg 4-05 tablet by [facility] disintegrat 00:00: mouth as [place] ing tablet 00 needed for Med ical Migraine Branch (Take 5mg at the beginning of the headache can repeat 2h after if headaches persists). May repeat in 2 hours if needed magnesium 2022-0 Yes [id number] 400mg Take 2 [facility] gluconate 4-05 tablets by [facility] 200 mg 00:00: mouth 2 [place] tablet 00 (two) Medical times Branch daily. gabapentin 2022-0 Yes [id number] 300mg Take 1 [facility] 300 mg 4-05 capsule by [facility] capsule 00:00: mouth 3 [place] (three) Medical times [facility] daily. rizatriptan 2022-0 Yes [id number] 5mg Take 1 [facility] 5 mg 4-05 tablet by [facility] disintegrat 00:00: mouth as [place] ing tablet 00 needed for Med ical Migraine Branch (Take 5mg at the beginning of the headache can repeat 2h after if headaches persists). May repeat in 2 hours if needed magnesium 2022-0 Yes [id number] 400mg Take 2 [facility] gluconate 4-05 tablets by [facility] 200 mg 00:00: mouth 2 [place] tablet 00 (two) Medical times Branch daily. gabapentin 2022-0 Yes [id number] 300mg Take 1 [facility] 300 mg 4-05 capsule by [facility] capsule 00:00: mouth 3 (three) Medical times [facility] daily. rizatriptan 2022-0 Yes [id number] 5mg Take 1 [facility] 5 mg 4-05 tablet by [facility] disintegrat 00:00: mouth as [place] ing tablet 00 needed for Med ical Migraine Branch (Take 5mg at the beginning of the headache can repeat 2h after if headaches persists). May repeat in 2 hours if needed magnesium 2022-0 Yes [id number] 400mg Take 2 [facility] gluconate 4-05 tablets by [facility] 200 mg 00:00: mouth 2 [place] tablet 00 (two) Medical times Branch daily. gabapentin 2022-0 Yes [id number] 300mg Take 1 [facility] 300 mg 4-05 capsule by [facility] capsule 00:00: mouth 3 [place] 00 (three) Medical times Branch daily. rizatriptan 2022-0 Yes [id number] 5mg Take 1 [facility] 5 mg 4-05 tablet by [facility] disintegrat 00:00: mouth as [place] ing tablet 00 needed for Med ical Migraine Branch (Take 5mg at the beginning of the headache can repeat 2h after if headaches persists). May repeat in 2 hours if needed magnesium 2022-0 Yes [id number] 400mg Take 2 [facility] gluconate 4-05 tablets by [facility] 200 mg 00:00: mouth 2 [place] tablet 00 (two) Medical times Branch daily. gabapentin 2022-0 Yes [id number] 300mg Take 1 [facility] 300 mg 4-05 capsule by [facility] capsule 00:00: mouth 3 [place] (three) Medical times [facility] daily. rizatriptan 2022-0 Yes [id number] 5mg Take 1 [facility] 5 mg 4-05 tablet by [facility] disintegrat 00:00: mouth as [place] ing tablet 00 needed for Med ical Migraine Branch (Take 5mg at the beginning of the headache can repeat 2h after if headaches persists). May repeat in 2 hours if needed magnesium 2022-0 Yes [id number] 400mg Take 2 [facility] gluconate 4-05 tablets by [facility] of 200 mg 00:00: mouth 2 [place] tablet 00 (two) Medical times Branch daily. gabapentin 2022-0 Yes [id number] 300mg Take 1 [facility] 300 mg 4-05 capsule by [facility] capsule 00:00: mouth 3 [place] 00 (three) Medical times Branch daily. rizatriptan 2022-0 Yes [id number] 5mg Take 1 [facility] 5 mg 4-05 tablet by [facility] disintegrat 00:00: mouth as [place] ing tablet 00 needed for Med ical Migraine Branch (Take 5mg at the beginning of the headache can repeat 2h after if headaches persists). May repeat in 2 hours if needed magnesium 2022-0 Yes [id number] 400mg Take 2 [facility] gluconate 4-05 tablets by [facility] of 200 mg 00:00: mouth 2 [place] tablet 00 (two) Medical times Branch daily. gabapentin 2022-0 Yes [id number] 300mg Take 1 [facility] 300 mg 4-05 capsule by [facility] capsule 00:00: mouth 3 [place] (three) Medical times Branch daily. rizatriptan 2022-0 Yes [id number] 5mg Take 1 [facility] 5 mg 4-05 tablet by [facility] disintegrat 00:00: mouth as [place] ing tablet 00 needed for Med ical Migraine Branch (Take 5mg at the beginning of the headache can repeat 2h after if headaches persists). May repeat in 2 hours if needed magnesium 2022-0 Yes [id number] 400mg Take 2 [facility] gluconate 4-05 tablets by [facility] of 200 mg 00:00: mouth 2 [place] tablet 00 (two) Medical times Branch daily. gabapentin 2022-0 Yes [id number] 300mg Take 1 [facility] 300 mg 4-05 capsule by [facility] capsule 00:00: mouth 3 (three) Medical times Branch daily. rizatriptan 2022-0 Yes [id number] 5mg Take 1 [facility] 5 mg 4-05 tablet by [facility] disintegrat 00:00: mouth as [place] ing tablet 00 needed for Med ical Migraine Branch (Take 5mg at the beginning of the headache can repeat 2h after if headaches persists). May repeat in 2 hours if needed magnesium 2022-0 Yes [id number] 400mg Take 2 [facility] gluconate 4-05 tablets by [facility] of 200 mg 00:00: mouth 2 [place] tablet 00 (two) Medical times Branch daily. gabapentin 2022-0 Yes [id number] 300mg Take 1 [facility] 300 mg 4-05 capsule by [facility] capsule 00:00: mouth 3 (three) Medical times Branch daily. rizatriptan 2022-0 Yes [id number] 5mg Take 1 [facility] 5 mg 4-05 tablet by [facility] disintegrat 00:00: mouth as [place] ing tablet 00 needed for Med ical Migraine Branch (Take 5mg at the beginning of the headache can repeat 2h after if headaches persists). May repeat in 2 hours if needed magnesium 2022-0 Yes [id number] 400mg Take 2 [facility] gluconate 4-05 tablets by [facility] of 200 mg 00:00: mouth 2 [place] tablet 00 (two) Medical times Branch daily. gabapentin 2022-0 Yes [id number] 300mg Take 1 [facility] 300 mg 4-05 capsule by [facility] capsule 00:00: mouth 3 [place] (three) Medical times Branch daily. rizatriptan 2022-0 Yes [id number] 5mg Take 1 [facility] 5 mg 4-05 tablet by [facility] disintegrat 00:00: mouth as [place] ing tablet 00 needed for Med ical Migraine Branch (Take 5mg at the beginning of the headache can repeat 2h after if headaches persists). May repeat in 2 hours if needed magnesium 2022-0 Yes [id number] 400mg Take 2 [facility] gluconate 4-05 tablets by [facility] of 200 mg 00:00: mouth 2 [place] tablet 00 (two) Medical times Branch daily. gabapentin 2022-0 Yes [id number] 300mg Take 1 [facility] 300 mg 4-05 capsule by [facility] capsule 00:00: mouth 3 [place] 00 (three) Medical times Branch daily. rizatriptan 2022-0 Yes [id number] 5mg Take 1 [facility] 5 mg 4-05 tablet by [facility] disintegrat 00:00: mouth as [place] ing tablet 00 needed for Med ical Migraine Branch (Take 5mg at the beginning of the headache can repeat 2h after if headaches persists). May repeat in 2 hours if needed magnesium 2022-0 Yes [id number] 400mg Take 2 [facility] gluconate 4-05 tablets by [facility] of 200 mg 00:00: mouth 2 [place] tablet 00 (two) Medical times Branch daily. gabapentin 2022-0 Yes [id number] 300mg Take 1 [facility] 300 mg 4-05 capsule by [facility] capsule 00:00: mouth 3 [place] (three) Medical times Branch daily. rizatriptan 2022-0 Yes [id number] 5mg Take 1 [facility] 5 mg 4-05 tablet by [facility] disintegrat 00:00: mouth as [place] ing tablet 00 needed for Med ical Migraine Branch (Take 5mg at the beginning of the headache can repeat 2h after if headaches persists). May repeat in 2 hours if needed magnesium 2022-0 Yes [id number] 400mg Take 2 [facility] gluconate 4-05 tablets by [facility] of 200 mg 00:00: mouth 2 [place] tablet 00 (two) Medical times Branch daily. gabapentin 2022-0 Yes [id number] 300mg Take 1 [facility] 300 mg 4-05 capsule by [facility] capsule 00:00: mouth 3 [place] 00 (three) Medical times Branch daily. rizatriptan 2022-0 Yes [id number] 5mg Take 1 [facility] 5 mg 4-05 tablet by [facility] disintegrat 00:00: mouth as [place] ing tablet 00 needed for Med ical Migraine Branch (Take 5mg at the beginning of the headache can repeat 2h after if headaches persists). May repeat in 2 hours if needed magnesium 2022-0 Yes [id number] 400mg Take 2 [facility] gluconate 4-05 tablets by [facility] of 200 mg 00:00: mouth 2 [place] tablet 00 (two) Medical times Branch daily. gabapentin 2022-0 Yes [id number] 300mg Take 1 [facility] 300 mg 4-05 capsule by [facility] capsule 00:00: mouth 3 [place] 00 (three) Medical times Branch daily. rizatriptan 2022-0 Yes [id number] 5mg Take 1 [facility] 5 mg 4-05 tablet by [facility] disintegrat 00:00: mouth as [place] ing tablet 00 needed for Med ical Migraine Branch (Take 5mg at the beginning of the headache can repeat 2h after if headaches persists). May repeat in 2 hours if needed magnesium 2022-0 Yes [id number] 400mg Take 2 [facility] gluconate 4-05 tablets by [facility] of 200 mg 00:00: mouth 2 [place] tablet 00 (two) Medical times Branch daily. gabapentin 2022-0 Yes [id number] 300mg Take 1 [facility] 300 mg 4-05 capsule by [facility] capsule 00:00: mouth 3 [place] 00 (three) Medical times Branch daily. rizatriptan 2022-0 Yes [id number] 5mg Take 1 [facility] 5 mg 4-05 tablet by [facility] disintegrat 00:00: mouth as [place] ing tablet 00 needed for Med ical Migraine Branch (Take 5mg at the beginning of the headache can repeat 2h after if headaches persists). May repeat in 2 hours if needed magnesium 2022-0 Yes [id number] 400mg Take 2 [facility] gluconate 4-05 tablets by [facility] of 200 mg 00:00: mouth 2 [place] tablet 00 (two) Medical times Branch daily. gabapentin 2022-0 Yes [id number] 300mg Take 1 [facility] 300 mg 4-05 capsule by [facility] capsule 00:00: mouth 3 [place] 00 (three) Medical times Branch daily. rizatriptan 2022-0 Yes [id number] 5mg Take 1 [facility] 5 mg 4-05 tablet by [facility] disintegrat 00:00: mouth as [place] ing tablet 00 needed for Med ical Migraine Branch (Take 5mg at the beginning of the headache can repeat 2h after if headaches persists). May repeat in 2 hours if needed magnesium 2022-0 Yes [id number] 400mg Take 2 [facility] gluconate 4-05 tablets by [facility] of 200 mg 00:00: mouth 2 [place] tablet 00 (two) Medical times Branch daily. gabapentin 2022-0 Yes [id number] 300mg Take 1 [facility] 300 mg 4-05 capsule by [facility] capsule 00:00: mouth 3 [place] 00 (three) Medical times Branch daily. rizatriptan 2022-0 Yes [id number] 5mg Take 1 [facility] 5 mg 4-05 tablet by [facility] disintegrat 00:00: mouth as [place] ing tablet 00 needed for Med ical Migraine Branch (Take 5mg at the beginning of the headache can repeat 2h after if headaches persists). May repeat in 2 hours if needed magnesium 2022-0 Yes [id number] 400mg Take 2 [facility] gluconate 4-05 tablets by [facility] of 200 mg 00:00: mouth 2 [place] tablet 00 (two) Medical times Branch daily. gabapentin 2022-0 Yes [id number] 300mg Take 1 [facility] 300 mg 4-05 capsule by [facility] of capsule 00:00: mouth 3 (three) Medical times Branch daily. rizatriptan 2022-0 Yes [id number] 5mg Take 1 [facility] 5 mg 4-05 tablet by [facility] disintegrat 00:00: mouth as [place] ing tablet 00 needed for Med ical Migraine [facility] (Take 5mg at the beginning of the headache can repeat 2h after if headaches persists). May repeat in 2 hours if needed magnesium 2022-0 Yes [id number] 400mg Take 2 [facility] gluconate 4-05 tablets by [facility] of 200 mg 00:00: mouth 2 [place] tablet 00 (two) Medical times Branch daily. gabapentin 2022-0 Yes [id number] 300mg Take 1 [facility] 300 mg 4-05 capsule by [facility] of capsule 00:00: mouth 3 [place] 00 (three) Medical times Branch daily. rizatriptan 2022-0 Yes [id number] 5mg Take 1 [facility] 5 mg 4-05 tablet by [facility] disintegrat 00:00: mouth as [place] ing tablet 00 needed for Med ical Migraine Branch (Take 5mg at the beginning of the headache can repeat 2h after if headaches persists). May repeat in 2 hours if needed magnesium 2022-0 Yes [id number] 400mg Take 2 [facility] gluconate 4-05 tablets by [facility] of 200 mg 00:00: mouth 2 [place] tablet 00 (two) Medical times Branch daily. gabapentin 2022-0 Yes [id number] 300mg Take 1 [facility] 300 mg 4-05 capsule by [facility] of capsule 00:00: mouth 3 [place] 00 (three) Medical times Branch daily. rizatriptan 2022-0 Yes [id number] 5mg Take 1 [facility] 5 mg 4-05 tablet by [facility] disintegrat 00:00: mouth as [place] ing tablet 00 needed for Med ical Migraine Branch (Take 5mg at the beginning of the headache can repeat 2h after if headaches persists). May repeat in 2 hours if needed magnesium 2022-0 Yes [id number] 400mg Take 2 [facility] gluconate 4-05 tablets by [facility] of 200 mg 00:00: mouth 2 [place] tablet 00 (two) Medical times Branch daily. gabapentin 2022-0 Yes [id number] 300mg Take 1 [facility] 300 mg 4-05 capsule by [facility] of capsule 00:00: mouth 3 [place] 00 (three) Medical times Branch daily. rizatriptan 2022-0 Yes [id number] 5mg Take 1 [facility] 5 mg 4-05 tablet by [facility] disintegrat 00:00: mouth as [place] ing tablet 00 needed for Med ical Migraine Branch (Take 5mg at the beginning of the headache can repeat 2h after if headaches persists). May repeat in 2 hours if needed magnesium 2022-0 Yes [id number] 400mg Take 2 [facility] gluconate 4-05 tablets by [facility] of 200 mg 00:00: mouth 2 [place] tablet 00 (two) Medical times Branch daily. gabapentin 2022-0 Yes [id number] 300mg Take 1 [facility] 300 mg 4-05 capsule by [facility] of capsule 00:00: mouth 3 [place] 00 (three) Medical times Branch daily. rizatriptan 2022-0 Yes [id number] 5mg Take 1 [facility] 5 mg 4-05 tablet by [facility] disintegrat 00:00: mouth as [place] ing tablet 00 needed for Med ical Migraine Branch (Take 5mg at the beginning of the headache can repeat 2h after if headaches persists). May repeat in 2 hours if needed ondansetron 2020-0 Yes [id number] 4mg Take 1 [facility] (ZOFRAN 7-22 tablet by [facility] of ODT) 4 mg 00:00: mouth [place] disintegrat 00 every 8 Medic al ing tablet (eight) Branch hours as needed for Nausea and Vomiting (N/V). ondansetron 2020-0 Yes [id number] 4mg Take 1 [facility] (ZOFRAN 7-22 tablet by [facility] of ODT) 4 mg 00:00: mouth [place] disintegrat 00 every 8 [facility] al ing tablet (eight) Branch hours as needed for Nausea and Vomiting (N/V). ondansetron 2020-0 Yes [id number] 4mg Take 1 [facility] (ZOFRAN 7-22 tablet by [facility] of ODT) 4 mg 00:00: mouth [place] disintegrat 00 every 8 Medic al ing tablet (eight) Branch hours as needed for Nausea and Vomiting (N/V). ondansetron 2020-0 Yes [id number] 4mg Take 1 [facility] (ZOFRAN 7-22 tablet by [facility] of ODT) 4 mg 00:00: mouth [place] disintegrat 00 every 8 [facility] al ing tablet (eight) Branch hours as needed for Nausea and Vomiting (N/V). ondansetron 2020-0 Yes [id number] 4mg Take 1 [facility] (ZOFRAN 7-22 tablet by [facility] of ODT) 4 mg 00:00: mouth [place] disintegrat 00 every 8 Medic al ing tablet (eight) Branch hours as needed for Nausea and Vomiting (N/V). ondansetron 2020-0 Yes [id number] 4mg Take 1 [facility] (ZOFRAN 7-22 tablet by [facility] of ODT) 4 mg 00:00: mouth [place] disintegrat 00 every 8 Medic al ing tablet (eight) Branch hours as needed for Nausea and Vomiting (N/V). ondansetron 2020-0 Yes [id number] 4mg Take 1 [facility] (ZOFRAN 7-22 tablet by [facility] of ODT) 4 mg 00:00: mouth [place] disintegrat 00 every 8 Medic al ing tablet (eight) Branch hours as needed for Nausea and Vomiting (N/V). ondansetron 2020-0 Yes [id number] 4mg Take 1 [facility] (ZOFRAN 7-22 tablet by [facility] of ODT) 4 mg 00:00: mouth [place] disintegrat 00 every 8 Medic al ing tablet (eight) Branch hours as needed for Nausea and Vomiting (N/V). ondansetron 1-0 Yes [id number] 4mg Take 1 [facility] (ZOFRAN 7-22 tablet by [facility] of ODT) 4 mg 00:00: mouth [place] disintegrat 00 every 8 Medic al ing tablet (eight) Branch hours as needed for Nausea and Vomiting (N/V). ondansetron 2020-0 Yes [id number] 4mg Take 1 [facility] (ZOFRAN 7-22 tablet by [facility] of ODT) 4 mg 00:00: mouth [place] disintegrat 00 every 8 Medic al ing tablet (eight) Branch hours as needed for Nausea and Vomiting (N/V). ondansetron 2020-0 Yes [id number] 4mg Take 1 [facility] (ZOFRAN 7-22 tablet by [facility] of ODT) 4 mg 00:00: mouth [place] disintegrat 00 every 8 Medic al ing tablet (eight) Branch hours as needed for Nausea and Vomiting (N/V). ondansetron 2020-0 Yes [id number] 4mg Take 1 [facility] (ZOFRAN 7-22 tablet by [facility] of ODT) 4 mg 00:00: mouth [place] disintegrat 00 every 8 Medic al ing tablet (eight) Branch hours as needed for Nausea and Vomiting (N/V). ondansetron 2020-0 Yes [id number] 4mg Take 1 [facility] (ZOFRAN 7-22 tablet by [facility] of ODT) 4 mg 00:00: mouth [place] disintegrat 00 every 8 Medic al ing tablet (eight) Branch hours as needed for Nausea and Vomiting (N/V). ondansetron 2020-0 Yes [id number] 4mg Take 1 [facility] (ZOFRAN 7-22 tablet by [facility] of ODT) 4 mg 00:00: mouth [place] disintegrat 00 every 8 Medic al ing tablet (eight) Branch hours as needed for Nausea and Vomiting (N/V). ondansetron 2021-0 Yes [id number] 4mg Take 1 [facility] (ZOFRAN 7-22 tablet by [facility] of ODT) 4 mg 00:00: mouth [place] disintegrat 00 every 8 Medic al ing tablet (eight) Branch hours as needed for Nausea and Vomiting (N/V). ondansetron 2020-0 Yes [id number] 4mg Take 1 [facility] (ZOFRAN 7-22 tablet by [facility] of ODT) 4 mg 00:00: mouth [place] disintegrat 00 every 8 Medic al ing tablet (eight) Branch hours as needed for Nausea and Vomiting (N/V). ondansetron 2020-0 Yes [id number] 4mg Take 1 [facility] (ZOFRAN 7-22 tablet by [facility] of ODT) 4 mg 00:00: mouth [place] disintegrat 00 every 8 Medic al ing tablet (eight) Branch hours as needed for Nausea and Vomiting (N/V). ondansetron 2020-0 Yes [id number] 4mg Take 1 [facility] (ZOFRAN 7-22 tablet by [facility]y of ODT) 4 mg 00:00: mouth [place] disintegrat 00 every 8 Medic al ing tablet (eight) Branch hours as needed for Nausea and Vomiting (N/V). ondansetron 2020-0 Yes [id number] 4mg Take 1 [facility] (ZOFRAN 7-22 tablet by [facility]y of ODT) 4 mg 00:00: mouth [place] disintegrat 00 every 8 Medic al ing tablet (eight) Branch hours as needed for Nausea and Vomiting (N/V). ondansetron 2020-0 Yes [id number] 4mg Take 1 [facility] (ZOFRAN 7-22 tablet by [facility] of ODT) 4 mg 00:00: mouth [place] disintegrat 00 every 8 Medic al ing tablet (eight) Branch hours as needed for Nausea and Vomiting (N/V). ondansetron 2020-0 Yes [id number] 4mg Take 1 [facility] (ZOFRAN 7-22 tablet by ity of ODT) 4 mg 00:00: mouth [place] disintegrat 00 every 8 Medic al ing tablet (eight) Branch hours as needed for Nausea and Vomiting (N/V). ondansetron 2020-0 Yes [id number] 4mg Take 1 [facility] (ZOFRAN 7-22 tablet by ity of ODT) 4 mg 00:00: mouth [place] disintegrat 00 every 8 Medic al ing tablet (eight) Branch hours as needed for Nausea and Vomiting (N/V). ondansetron 2020-0 Yes [id number] 4mg Take 1 [facility] (ZOFRAN 7-22 tablet by [facility]y of ODT) 4 mg 00:00: mouth [place] disintegrat 00 every 8 Medic al ing tablet (eight) Branch hours as needed for Nausea and Vomiting (N/V). ondansetron 2020-0 Yes [id number] 4mg Take 1 [facility] (ZOFRAN 7-22 tablet by ity of ODT) 4 mg 00:00: mouth [place] disintegrat 00 every 8 Medic al ing tablet (eight) Branch hours as needed for Nausea and Vomiting (N/V). ondansetron 2020-0 Yes [id number] 4mg Take 1 [facility] (ZOFRAN 7-22 tablet by ity of ODT) 4 mg 00:00: mouth [place] disintegrat 00 every 8 Medic al ing tablet (eight) Branch hours as needed for Nausea and Vomiting (N/V). ondansetron 2020-0 Yes [id number] 4mg Take 1 [facility] (ZOFRAN 7-22 tablet by ity of ODT) 4 mg 00:00: mouth [place] disintegrat 00 every 8 Medic al ing tablet (eight) Branch hours as needed for Nausea and Vomiting (N/V). ondansetron 2020-0 Yes [id number] 4mg Take 1 [facility] (ZOFRAN 7-22 tablet by ity of ODT) 4 mg 00:00: mouth [place] disintegrat 00 every 8 Medic al ing tablet (eight) Branch hours as needed for Nausea and Vomiting (N/V). ondansetron 2020-0 Yes [id number] 4mg Take 1 [facility] (ZOFRAN 7-22 tablet by ity of ODT) 4 mg 00:00: mouth [place] disintegrat 00 every 8 Medic al ing tablet (eight) Branch hours as needed for Nausea and Vomiting (N/V). ondansetron 2020-0 Yes [id number] 4mg Take 1 Univers (ZOFRAN 7-22 tablet by ity of ODT) 4 mg 00:00: mouth [place] disintegrat 00 every 8 Medic al ing tablet (eight) Branch hours as needed for Nausea and Vomiting (N/V). ondansetron 1-0 Yes [id number] 4mg Take 1 [facility] (ZOFRAN 7-22 tablet by ity of ODT) 4 mg 00:00: mouth [place] disintegrat 00 every 8 Medic al ing tablet (eight) Branch hours as needed for Nausea and Vomiting (N/V). ondansetron 2020-0 Yes [id number] 4mg Take 1 [facility] (ZOFRAN 7-22 tablet by ity of ODT) 4 mg 00:00: mouth [place] disintegrat 00 every 8 Medic al ing tablet (eight) Branch hours as needed for Nausea and Vomiting (N/V). ondansetron 1-0 Yes [id number] 4mg Take 1 [facility] (ZOFRAN 7-22 tablet by ity of ODT) 4 mg 00:00: mouth [place] disintegrat 00 every 8 Medic al ing tablet (eight) Branch hours as needed for Nausea and Vomiting (N/V). ondansetron 2020-0 Yes [id number] 4mg Take 1 [facility] (ZOFRAN 7-22 tablet by ity of ODT) 4 mg 00:00: mouth [place] disintegrat 00 every 8 Medic al ing tablet (eight) Branch hours as needed for Nausea and Vomiting (N/V). ondansetron 2020-0 Yes [id number] 4mg Take 1 [facility] (ZOFRAN 7-22 tablet by ity of ODT) 4 mg 00:00: mouth [place] disintegrat 00 every 8 Medic al ing tablet (eight) Branch hours as needed for Nausea and Vomiting (N/V). ondansetron 2020-0 Yes [id number] 4mg Take 1 [facility] (ZOFRAN 7-22 tablet by ity of ODT) 4 mg 00:00: mouth [place] disintegrat 00 every 8 Medic al ing tablet (eight) Branch hours as needed for Nausea and Vomiting (N/V). ondansetron 2020-0 Yes [id number] 4mg Take 1 [facility] (ZOFRAN 7-22 tablet by ity of ODT) 4 mg 00:00: mouth [place] disintegrat 00 every 8 Medic al ing tablet (eight) Branch hours as needed for Nausea and Vomiting (N/V). ondansetron 1-0 Yes [id number] 4mg Take 1 [facility] (ZOFRAN 7-22 tablet by ity of ODT) 4 mg 00:00: mouth [place] disintegrat 00 every 8 Medic al ing tablet (eight) Branch hours as needed for Nausea and Vomiting (N/V). ondansetron 1-0 Yes [id number] 4mg Take 1 [facility] (ZOFRAN 7-22 tablet by ity of ODT) 4 mg 00:00: mouth [place] disintegrat 00 every 8 Medic al ing tablet (eight) Branch hours as needed for Nausea and Vomiting (N/V). ondansetron 2021-0 Yes [id number] 4mg Take 1 [facility] (ZOFRAN 7-22 tablet by ity of ODT) 4 mg 00:00: mouth [place] disintegrat 00 every 8 Medic al ing tablet (eight) Branch hours as needed for Nausea and Vomiting (N/V). ondansetron 2021-0 Yes [id number] 4mg Take 1 [facility] (ZOFRAN 7-22 tablet by ity of ODT) 4 mg 00:00: mouth [place] disintegrat 00 every 8 Medic al ing tablet (eight) Branch hours as needed for Nausea and Vomiting (N/V). ondansetron 2021-0 Yes [id number] 4mg Take 1 [facility] (ZOFRAN 7-22 tablet [...] by mouth ity of tablet 13:17: at [place] [address] bedtime. Medical Branch allopurinoL 2020-0 Yes 100mg Take 100 U nivers 100 mg 6-24 mg by ity of tablet 13:17: mouth [place] 52 daily. Medical Branch atorvastati 2020-0 Yes 10mg Take 10 mg Univers n 10 mg 6-24 by mouth ity of tablet 13:17: at [place] [address] bedtime. Medical Branch allopurinoL 2020-0 Yes 100mg Take 100 U nivers 100 mg 6-24 mg by ity of tablet 13:17: mouth [place] 52 daily. Medical Branch atorvastati 2020-0 Yes 10mg Take 10 mg Univers n 10 mg 6-24 by mouth ity of tablet 13:17: at [place] [address] bedtime. Medical Branch allopurinoL 2020-0 Yes 100mg [...] by mouth ity of tablet 13:17: at [place] [address] bedtime. Medical Branch allopurinoL 2020-0 Yes 100mg Take 100 U nivers 100 mg 6-24 mg by ity of tablet 13:17: mouth [place] 52 daily. Medical Branch atorvastati 2020-0 Yes 10mg Take 10 mg Univers n 10 mg 6-24 by mouth ity of tablet 13:17: at [place] [address] bedtime. Medical Branch allopurinoL 2020-0 Yes 100mg Take 100 U nivers 100 mg 6-24 mg by ity of tablet 13:17: mouth [place] 52 daily. Medical Branch atorvastati 2020-0 Yes 10mg Take 10 mg Univers n 10 mg 6-24 by mouth ity of tablet 13:17: at [place] [address] bedtime. Medical Branch allopurinoL 2020-0 Yes 100mg Take 100 U nivers 100 mg 6-24 mg by ity of tablet 13:17: mouth [place] 52 daily. Medical Branch atorvastati 2020-0 Yes 10mg Take 10 mg Univers n 10 mg 6-24 by mouth ity of tablet 13:17: at [place] [address] bedtime. Medical Branch allopurinoL 2020-0 Yes 100mg Take 100 U nivers 100 mg 6-24 mg by ity of tablet 13:17: mouth [place] 52 daily. Medical Branch atorvastati 2020-0 Yes 10mg Take 10 mg Univers n 10 mg 6-24 by mouth ity of tablet 13:17: at [place] [address] bedtime. Medical Branch allopurinoL 2020-0 Yes 100mg Take 100 U nivers 100 mg 6-24 mg by ity of tablet 13:17: mouth [place] 52 daily. Medical Branch atorvastati 2020-0 Yes 10mg Take 10 mg Univers n 10 mg 6-24 by mouth ity of tablet 13:17: at [place] [address] bedtime. Medical Branch allopurinoL 2020-0 Yes 100mg [...] by mouth ity of tablet 13:17: at [place] 52 bedtime. Medical Branch allopurinoL 2020-0 Yes [...] by mouth ity of tablet 13:17: at [place] 52 bedtime. Medical Branch allopurinoL 2020-0 Yes 100mg Take 100 U nivers 100 mg 6-24 mg by ity of tablet 13:17: mouth [place] 52 daily. Medical Branch atorvastati 2020-0 Yes 10mg Take 10 mg Univers n 10 mg 6-24 by mouth ity of tablet 13:17: at [place] 52 bedtime. Medical Branch allopurinoL 2020-0 Yes 100mg Take 100 U nivers 100 mg 6-24 mg by ity of tablet 13:17: mouth [place] 52 daily. Medical Branch atorvastati 2020-0 Yes 10mg Take 10 mg Univers n 10 mg 6-24 by mouth ity of tablet 13:17: at [place] [address] bedtime. Medical Branch allopurinoL 2020-0 Yes 100mg Take 100 U nivers 100 mg 6-24 mg by ity of tablet 13:17: mouth [place] 52 daily. Medical Branch atorvastati 2020-0 Yes 10mg Take 10 mg Univers n 10 mg 6-24 by mouth ity of tablet 13:17: at [place] [address] bedtime. Medical Branch allopurinoL 2020-0 Yes 100mg Take 100 U nivers 100 mg 6-24 mg by ity of tablet 13:17: mouth [place] 52 daily. Medical Branch atorvastati 2020-0 Yes 10mg Take 10 mg Univers n 10 mg 6-24 by mouth ity of tablet 13:17: at [place] [address] bedtime. Medical Branch allopurinoL 2020-0 Yes 100mg Take 100 U nivers 100 mg 6-24 mg by ity of tablet 13:17: mouth [place] 52 daily. Medical Branch atorvastati 2020-0 Yes 10mg Take 10 mg Univers n 10 mg 6-24 by mouth ity of tablet 13:17: at [place] [address] bedtime. Medical Branch allopurinoL 2020-0 Yes 100mg Take 100 U nivers 100 mg 6-24 mg by ity of tablet 13:17: mouth [place] 52 daily. Medical Branch atorvastati 2020-0 Yes 10mg Take 10 mg Univers n 10 mg 6-24 by mouth ity of tablet 13:17: at [place] [address] bedtime. Medical Branch allopurinoL 2020-0 Yes 100mg [...] by mouth ity of tablet 13:17: at [place] 52 bedtime. Medical Branch allopurinoL 2020-0 Yes 100mg Take 100 U nivers 100 mg 6-24 mg by ity of tablet 13:17: mouth [place] 52 daily. Medical Branch atorvastati 2020-0 Yes 10mg Take 10 mg Univers n 10 mg 6-24 by mouth ity of tablet 13:17: at [place] [address] bedtime. Medical Branch allopurinoL 2020-0 Yes 100mg Take 100 U nivers 100 mg 6-24 mg by ity of tablet 13:17: mouth [place] 52 daily. Medical Branch atorvastati 2020-0 Yes 10mg Take 10 mg Univers n 10 mg 6-24 by mouth ity of tablet 13:17: at [place] [address] bedtime. Medical Branch allopurinoL 2020-0 Yes 100mg Take 100 U nivers 100 mg 6-24 mg by ity of tablet 13:17: mouth [place] 52 daily. Medical Branch atorvastati 2020-0 Yes 10mg Take 10 mg Univers n 10 mg 6-24 by mouth ity of tablet 13:17: at [place] [address] bedtime. Medical Branch allopurinoL 2020-0 Yes 100mg Take 100 U nivers 100 mg 6-24 mg by ity of tablet 13:17: mouth [place] 52 daily. Medical Branch atorvastati 2020-0 Yes 10mg Take 10 mg Univers n 10 mg 6-24 by mouth ity of tablet 13:17: at [place] [address] bedtime. Medical Branch allopurinoL 2020-0 Yes 100mg [...] by mouth ity of tablet 13:17: at [place] [address] bedtime. Medical Branch allopurinoL 2020-0 Yes 100mg Take 100 U nivers 100 mg 6-24 mg by ity of tablet 13:17: mouth [place] 52 daily. Medical Branch atorvastati 2020-0 Yes 10mg Take 10 mg Univers n 10 mg 6-24 by mouth ity of tablet 13:17: at [place] [address] bedtime. Medical Branch allopurinoL 2020-0 Yes 100mg Take 100 U nivers 100 mg 6-24 mg by ity of tablet 13:17: mouth [place] 52 daily. Medical Branch atorvastati 2020-0 Yes 10mg Take 10 mg Univers n 10 mg 6-24 by mouth ity of tablet 13:17: at [place] [address] bedtime. Medical Branch allopurinoL 2020-0 Yes 100mg Take 100 U nivers 100 mg 6-24 mg by ity of tablet 13:17: mouth [place] 52 daily. Medical Branch atorvastati 2020-0 Yes 10mg Take 10 mg Univers n 10 mg 6-24 by mouth ity of tablet 13:17: at [place] [address] bedtime. Medical Branch allopurinoL 2020-0 Yes 100mg Take 100 U nivers 100 mg 6-24 mg by ity of tablet 13:17: mouth [place] 52 daily. Medical Branch atorvastati 2020-0 Yes 10mg Take 10 mg Univers n 10 mg 6-24 by mouth ity of tablet 13:17: at [place] [address] bedtime. Medical Branch allopurinoL 2020-0 Yes 100mg Take 100 U nivers 100 mg 6-24 mg by ity of tablet 13:17: mouth [place] 52 daily. Medical Branch atorvastati 2020-0 Yes 10mg Take 10 mg Univers n 10 mg 6-24 by mouth ity of tablet 13:17: at [place] [address] bedtime. Medical Branch allopurinoL 2020-0 Yes 100mg Take 100 U nivers 100 mg 6-24 mg by ity of tablet 13:17: mouth [place] 52 daily. Medical Branch atorvastati 2020-0 Yes 10mg Take 10 mg Univers n 10 mg 6-24 by mouth ity of tablet 13:17: at [place] [address] bedtime. Medical Branch allopurinoL 2020-0 Yes 100mg Take 100 U nivers 100 mg 6-24 mg by ity of tablet 13:17: mouth [place] 52 daily. Medical Branch atorvastati 2020-0 Yes 10mg Take 10 mg Univers n 10 mg 6-24 by mouth ity of tablet 13:17: at [place] [address] bedtime. Medical Branch allopurinoL 2020-0 Yes 100mg Take 100 U nivers 100 mg 6-24 mg by ity of tablet 13:17: mouth [place] 52 daily. Medical Branch atorvastati 2020-0 Yes 10mg Take 10 mg Univers n 10 mg 6-24 by mouth ity of tablet 13:17: at [place] [address] bedtime. Medical Branch allopurinoL 2020-0 Yes 100mg Take 100 U nivers 100 mg 6-24 mg by ity of tablet 13:17: mouth [place] 52 daily. Medical Branch atorvastati 2020-0 Yes 10mg Take 10 mg Univers n 10 mg 6-24 by mouth ity of tablet 13:17: at [place] [address] bedtime. Medical Branch propranolol 2020-0 Yes 80mg [...] blood 2022-07-26 13:22:00 135 mm[Hg] Univer sity [facility] Diastolic blood 2022-07-26 13:22:00 78 mm[Hg] Unive rsity [facility] Heart rate 2022-07-26 13:22:00 85 /min [facility] Respiratory rate 2022-07-26 13:22:00 18 /min [facility] 2022-07-26 13:22:00 167.6 cm [facility] Body weight 2022-07-26 13:22:00 97.523 kg [facility] BMI 2022-07-26 13:22:00 34.70 kg/m2 [facility] Systolic blood 2022-02-15 14:59:00 131 mm[Hg] Univer sity of [facility] Diastolic blood 2022-02-15 14:59:00 70 mm[Hg] Unive rsity of [facility] Heart rate 2022-02-15 14:59:00 81 /min [facility] [place] [facility] Respiratory rate 2022-02-15 14:59:00 18 /min Univ ers[facility] [place] [facility] Body height 2022-02-15 14:59:00 167.6 cm [facility] [place] [facility] Body weight 2022-02-15 14:59:00 102.967 kg [facility] [place] [facility] BMI 2022-02-15 14:59:00 36.64 kg/m2 [facility] [place] [facility] Respiratory rate 2022-01-11 17:11:00 18 /min Univ [facility] [place] [facility] Body height 2022-01-11 17:11:00 167.6 cm [facility] [place] [facility] Body weight 2022-01-11 17:11:00 100.699 kg [facility] [place] [facility] BMI 2022-01-11 17:11:00 35.83 kg/m2 [facility] [place] [facility] Systolic blood 2021-08-24 14:24:00 133 mm[Hg] Univer sity of [facility] Diastolic blood 2021-08-24 14:24:00 73 mm[Hg] Unive rsity of [facility] [place] [facility] Heart rate 2021-08-24 14:24:00 69 /min [facility] [place] [facility] Respiratory rate 2021-08-24 14:24:00 18 /min Univ [facility] [place] [facility] Body height 2021-08-24 14:24:00 167.6 cm [facility] [place] [facility] Body weight 2021-08-24 14:24:00 100.245 kg [facility] [place] [facility] BMI 2021-08-24 14:24:00 35.67 kg/m2 [facility] [place] [facility] Oxygen saturation in 2021-06-07 15:30:00 96 /min [facility] Arterial blood by [facility] Pulse oximetry Branch Body temperature 2021-06-07 14:20:30 37.44 [facility]a [facility] [place] [facility] [place] Procedures Procedure Date / Time Performed Performing Clinician Jael e LITHIUM 2022-07-26 14:49:00 [facility]22-[facility]-26 13:16:12 Doctor Unassigned, No Univer [facility]ity [facility] [place] FINANCIAL POLICY Name Medical Branch [facility] PATIENT 2022-07-26 13:16:12 Doctor Unassigned, No Univer [...] Medical Branch LITHIUM 2022-02-15 15:58:00 Angela Sage [facility] CONSENT/REFUSAL FOR 2022-01-11 17:10:16 Doctor Unassigned, No Un iversity [facility] [place] DIAGNOSIS AND Name Medical Branch TREATMENT CONSENT/REFUSAL FOR 2022-01-11 17:10:16 Doctor Unassigned, No Un [facility] [place] DIAGNOSIS AND Name Medical Branch TREATMENT Encounters Start End Encounter Admission Attending Care Care Encounter Source Date/Time Date/Time Type Type Clinicians Facility Department ID 2020-12-13 Emergency [facility] [id number] Univers 10:09:54 ity of [facility] 2020-12-11 Emergency [facility] [id number] Univers 04:02:45 ity of [facility] 2022-10-04 2022-10-04 Outpatient R [facility] [id number] Univers 09:30:00 09:30:00 ity of [facility] 2022-09-06 2022-09-06 Outpatient R UNA HESTER [facility] [id number] Univers 08:45:00 08:45:00 UNA HESTER ity of [facility] 2022-09-06 2022-09-06 Travel 1.2.840.1 1.2.011.760 [id number] Univers 00:00:00 00:00:00 25185.1.1 350.1.13.10 ity of 3.104.2.7 4.2.7.3.698 [place] .3.674437 084.8 Medica l .8 [place] 2022-07-26 2022-07-26 [facility] 1.2.840.4 [id number] Univers 11:00:00 11:15:00 Visit Pcp-Lab 62127.1.1 ity of 3.104.2.7 [place] .3.524936 Medica l .8 [place] 2022-07-26 2022-07-26 Outpatient R UNA HESTER [facility] [id number] Univers 08:45:00 09:37:46 UNA HESTER [facility] 2022-07-26 2022-07-26 Orders Doctor 1.2.840.5 [id number] Univers 00:00:00 00:00:00 Only Unassigned, 17864.1.1 ity of [place] 3.104.2.7 [place] .3.618025 Medica l .8 [place] 2022-07-26 2022-07-26 Travel 1.2.840.1 1.2.290.210 [id number] Univers 00:00:00 00:00:00 36821.1.1 350.1.13.10 ity of 3.104.2.7 4[place].7.3.698 [place] .3.249014 084.8 Medica l .8 [place] 2022-07-24 2022-07-24 Outpatient SFA SFA [id number] Robert 13:24:12 13:24:12 0612 [facility] 2022-06-27 2022-06-27 Outpatient SFA SFA [id number] Robert 13:49:18 13:49:18 0516 [facility] 2022-06-21 2022-06-21 Outpatient SFA SFA [id number] Robert 08:52:50 08:52:50 0510 [facility] 2022-06-15 2022-06-15 Outpatient SFA SFA [id number] Robert 15:23:34 15:23:34 0504 [facility] 2022-05-31 2022-05-31 Outpatient UNA DELGADILLO [facility] [id number] [facility] 08:45:00 08:45:00 UNA HESTER ity of [facility] 2022-05-30 2022-05-30 Outpatient [facility] [id number] Robert 11:55:27 11:55:27 0418 F Sibley 2022-05-23 2022-05-23 Outpatient [facility] [id number] Robert 11:17:29 11:17:29 0411 F Sibley 2022-05-12 2022-05-12 Outpatient [facility] [id number] Robert 08:06:11 08:06:11 0331 F Sibley 2022-05-11 2022-05-11 Outpatient [facility] [id number] Robert 13:45:44 13:45:44 0330 F Sibley 2022-04-08 2022-04-08 Orders Doctor 1.2.840.8 [id number] Univers 00:00:00 00:00:00 Only Unassigned, 58864.1.1 ity of [place] 3.104.2.7 [place] .3.062246 Medica l .8 [place] 2022-02-21 2022-02-21 Orders Doctor 1.2.840.2 [id number] Univers 00:00:00 00:00:00 Only Unassigned, 82019.1.1 ity of [place] 3.104.2.7 [place] .3.008357 Medica l .8 [place] 2022-02-15 2022-02-15 [facility]ology 1.2.840.4 [id number] Univers 13:30:00 13:45:00 Visit Pcp-Lab 61434.1.1 ity of 3.104.2.7 [facility].672954 Medica l .8 [place] 2022-02-15 2022-02-15 Outpatient R SELF, [facility] [id number] Univers 08:45:00 10:52:26 DERRELL wesley o f [facility] 2022-02-15 2022-02-15 Travel 1.2.840.1 1.2.756.732 [id number] Univers 00:00:00 00:00:00 83273.1.1 350.1.13.10 ity of 3.104.2.7 4.[place].7.3.698 [place] .3.434801 084.8 Medica l .8 [place] 2022-01-11 2022-01-11 Outpatient R UNA HESTER [facility] [id number] Univers 11:00:00 12:39:46 UNA HESTER [facility] 2022-01-11 2022-01-11 Orders Doctor 1.2.840.9 [id number] Univers 00:00:00 00:00:00 Only Unassigned, 89131.1.1 ity of [place] 3.104.2.7 [place] .3.825863 Medica l .8 [place] 2022-01-11 2022-01-11 Travel 1.2.840.1 1.2.266.206 [id number] Univers 00:00:00 00:00:00 06684.1.1 350.1.13.10 ity of 3.104.2.7 4.[place].7.3.698 [place] .3.205246 084.8 Medica l .8 [place] 2021-11-24 2021-11-24 Outpatient R SAAVEDRA, [facility] [id number] Univers 09:30:00 09:30:[address] [facility] 2021-11-16 2021-11-16 Outpatient R UNA HESTER [facility] [id number] Univers 11:00:00 11:00:00 UNA HESTER [facility] 2021-10-26 2021-10-26 Outpatient R SELF, [facility] [id number] Univers 08:00:00 08:00:[address] [facility] 2021-10-20 2021-10-20 Outpatient R SAAVEDRA [facility] [id number] Univers 10:00:00 10:00:00 IGOR walters juan [facility] 2021-10-03 2021-10-03 Outpatient R JENNIFER [facility] [id number] Univers 14:30:00 14:30:00 REX wesley [facility] 2021-09-21 2021-09-21 Outpatient R SELF, [facility] [id number] Univers 09:30:00 09:30:00 DERRELL martinez [facility] 2021-08-24 2021-08-24 Outpatient R SELF, [facility] [id number] Univers 09:30:00 10:41:34 DERRELL martinez [facility] 2021-08-24 2021-08-24 Travel 1.2.840.1 1.2.527.474 [id number] Univers 00:00:00 00:00:00 09299.1.1 350.1.13.10 ity of 3.104.2.[place].7.3.698 [place] .3.763852 084.8 Medica l .8 [place] 2021-07-25 2021-07-25 Outpatient R SELF, [facility] [id number] Univers 09:00:00 09:00:00 DERRELL martinez [facility] 2021-06-22 2021-06-22 Outpatient R UNA HESTER [facility] [id number] Univers 11:15:00 12:18:05 UNA HESTER [facility] 2021-06-22 2021-06-22 Outpatient R UNA HESTER [facility] [id number] Univers 11:15:00 11:15:00 UNA HESTER [facility] 2021-06-22 2021-06-22 Travel 1.2.840.1 1.2.446.185 [id number] Univers 00:00:00 00:00:00 59536.1.1 350.1.13.10 ity of 3.104.2.7 [place].7.3.698 [place] .3.608392 084.8 Medica l .8 [place] 2021-06-20 2021-06-20 Outpatient R SELF, [facility] [id number] Univers 11:15:00 11:15:00 DERRELL martinez [facility] 2021-06-20 2021-06-20 Outpatient R SELF, [facility] [id number] Univers 11:15:00 11:15:00 DERRELL martinez [facility] 2021-06-08 2021-06-08 Outpatient R GREGORROBEL BOOGIELARISANoa [facility] [id number] Univers 09:20:00 09:20:00 HILARY MOORE of [facility] 2021-06-08 2021-06-08 Patient Saavedra, 1.2.840.8 [id number] Univers 00:00:00 00:00:00 Secure g Igor 01775.1.1 ity of [place] 3.104.2.7 [place] .3.975287 Medica l .8 [place] 2021-06-07 2021-06-07 Emergency X [place], [facility] ERT [id number] Univers 09:13:00 10:50:00 LULY wesley of [facility] 2021-06-07 2021-06-[address] [facility] 1.2.457.919 [id number] Univers 09:13:00 10:50:00 Luly [place] 350.1.13.10 i ty of [place] 4.2.7.2.686 [facility] [id number] [facility] rogelio 084 [place] 2021-06-07 2021-06-07 Emergency Ny, 1.2.840.1 [id number] Univers 09:13:00 10:50:00 Luly 79820.1.1 ity of 3.104.2.7 [place] .3.373556 Medica l .8 [place] 2021-06-07 2021-06-07 Outpatient R QUENTIN, [facility] [id number] Univers 00:00:00 00:00:00 IGOR walters f [facility] 2021-06-07 2021-06-07 Orders Doctor MOO 1.2.840.114 [id number] Univers 00:00:00 00:00:00 Only Unassigned, QUITA 350.1.13.10 ity of [place] [facility] 4.2.7.2.686 [facility] [id number] Medi rogelio 009 Branch 2021-06-07 2021-06-07 Travel 1.2.840.1 1.2.335.675 [id number] Univers 00:00:00 00:00:00 60962.1.1 350.1.13.10 ity of 3.104.2.7 4.[place].7.3.698 [place] .3.506667 084.8 Medica l .8 [place] 2021-06-07 2021-06-07 Orders Doctor 1.2.840.8 [id number] Univers 00:00:00 00:00:00 Only Unassigned, 98694.1.1 ity of [place] 3.104.2.7 [place] .3.308913 Medica l .8 Branch 2021-06-03 2021-06-03 Travel 1.2.840.1 1.2.745.830 [id number] Univers 00:00:00 00:00:00 36069.1.1 350.1.13.10 ity of 3.104.2.7 4.[place].7.3.698 [place] .3.010694 084.8 Medica l .8 [place] 2021-05-27 2021-05-27 Outpatient R [facility] [id number] Univers 00:00:00 00:00:00 IGOR martinez [facility] 2021-05-27 2021-05-27 Outpatient R [facility] [id number] Univers 00:00:00 00:00:00 IGOR martinez [facility] 2021-05-25 2021-05-25 Patient Doctor 1.2.840.8 [id number] Univers 00:00:00 00:00:00 Secure Msg Unassigned, 86011.1.1 ity of [place] 3.104.2.7 [place] .3.031322 Medica l .8 [place] 2021-05-25 2021-05-25 Patient Doctor 1.2.840.5 [id number] Univers 00:00:00 00:00:00 Secure Msg Unassigned, 53757.1.1 ity of [place] 3.104.2.7 [place] .3.465008 Medica l .8 [place] 2021-05-20 2021-05-20 Telephone Jones 1.2.840.5 [id number] Univers 00:00:00 00:00:00 Best, 27705.1.1 ity of [place] 3.104.2.7 [place] .3.628961 Medica l .8 Branch 2021-05-20 2021-05-20 Telephone Jones 1.2.840.7 [id number] Univers 00:00:00 00:00:00 Best, 29674.1.1 ity of [place] 3.104.2.7 [place] .3.851368 Medica l .8 Branch 2021-05-18 2021-05-18 Travel 1.2.840.1 1.2.099.597 [id number] Univers 00:00:00 00:00:00 31427.1.1 350.1.13.10 ity of 3.104.2.7 4.2.7.3.698 [place] .3.511020 084.8 Medica l .8 Branch 2021-05-18 2021-05-18 Travel 1.2.840.1 1.2.069.596 [id number] Univers 00:00:00 00:00:00 24082.1.1 350.1.13.10 ity of 3.104.2.7 4.[place].7.3.698 [place] .3.468262 084.8 Medica l .8 Branch 2021-05-17 2021-05-17 Ash Collector Pcp-Lab [place] 1.2.840.114 [id number] Univers 13:15:00 13:30:00 Visit Igor Saavedra PRIMARY 350.1.13.1 0 ity of CARE 4.2.7.2.686 [place] [id number] Mt dical 366 Branch 2021-05-17 2021-05-17 Ash Collector Igor Saavedra 1.2.840.1 1 [id number] Univers 13:15:00 13:30:00 Visit Pcp-Lab 65049.1.1 ity of 3.104.2.7 [place] .3.886498 Medica l .8 Branch 2021-05-17 2021-05-17 Ash Collector Igor Saavedra 1.2.840.1 1 [id number] Univers 13:15:00 13:30:00 Visit Pcp-Lab 11243.1.1 ity of 3.104.2.7 [place] .3.157037 Medica l .8 [place] 2021-05-17 2021-05-17 [facility] [id number] [facility] 09:00:00 10:25:05 IGOR wesley [facility] 2021-05-17 2021-05-17 Office Igor Saavedra 1.2.840.1 [id number] [facility] 09:00:00 10:25:05 Visit Deonte Joel 09880.1.1 ity of 3.104.2.7 [place] .3.345881 Medica l .[address] [place] [address] 2021-05-17 2021-05-17 [facility] [id number] [facility] 09:00:00 10:25:05 IGOR wesley [facility] 2021-05-17 2021-05-17 [facility] [id number] Univers 09:30:00 09:30:00 [facility] 2021-05-17 Travel 1.2.840.1 1.2.023.236 [id number] Univers 00:00:00 00:00:00 03159.1.1 350.1.13.10 ity of 3.104.2.7 4.[place].3.698 [place]3.9732[place] 084.8 Medica l .8 [place] 2021-05-17 2021-05-17 Travel 1.2.840.1 1.2.806.225 [id number] Univers 00:00:00 00:00:00 81931.1.1 350.1.13.10 ity of 3.104.2.7 [place].698 [place].603785 084.8 Med[place] l .8 [place] 2021-04-26 2021-04-26 Outpatient R [facility] [id number] Univers 09:00:00 09:00:00 ity [facility] 2021-04-26 2021-04-26 Outpatient R WENDY [facility] [id number] Univers 09:00:00 09:00:00 ATTENDING ity [facility] 2021-04-20 2021-04-20 Outpatient R UNA HESTER [facility] [id number] Univers 08:45:00 08:45:00 UNA HESTER [facility] 2021-04-11 2021-04-11 Outpatient R SALLY MITCHELL [facility] [id number] Univers 08:40:00 08:40:00 SALLY MITCHELL [facility] 2021-04-11 2021-04-11 Outpatient R SALLY MITCHELL [facility] [id number] Univers 08:40:00 08:40:00 SALLY MITCHELL [facility] 2021-03-21 2021-03-21 Outpatient R PAULA SALLY [facility] [id number] Univers 08:00:00 08:00:00 SALLY MITCHELL [facility] 2021-03-17 2021-03-17 Patient Doctor 1.2.840.0 [id number] Univers 00:00:00 00:00:00 Secure Msg Unassigned, 30686.1.1 ity of [place] 3.104.2.7 [place] .3.320121 Medica l .8 [place] 2021-03-17 2021-03-17 Patient Doctor 1.2.840.0 [id number] Univers 00:00:00 00:00:00 Secure Msg Unassigned, 38973.1.1 ity of [place] 3.104.2.7 [place] .3.739341 Medica l .8 [place] 2021-03-17 2021-03-17 Patient Doctor 1.2.840.6 [id number] Univers 00:00:00 00:00:00 Secure Msg Unassigned, 56385.1.1 ity of [place] 3.104.2.7 [place] .3.279174 Medica l .8 [place] 2021-03-16 2021-03-16 Ash Collector [place] 1.2.840.1 1020 [id number] Univers 13:15:00 13:30:00 Visit Pcp-Lab 63703.1.1 ity of 3.104.2.7 [place] .3.154657 Medica l .8 [place] 2021-03-16 2021-03-16 Ash Collector [place] 1.2.840.1 [id number] Univers 13:15:00 13:30:00 Visit Pcp-Lab 97880.1.1 ity of 3.104.2.7 [place] .3.046445 Medica l .8 [place] 2021-03-16 2021-03-16 Outpatient Tonya LOCKWOOD [facility] [id number] Univers 13:15:00 13:15:00 RALEIGH [facility] 2021-03-16 2021-03-16 Outpatient UNA DELGADILLO [facility] [id number] Univers 12:00:00 12:09:51 [facility] 2021-03-16 [facility] [id number] Univers 12:00:00 12:09:51 [facility]-16 2021-03-16 Outpatient [facility] [id number] Univers 12:00:00 12:00:00 UNA HESTER [facility] 2021-03-16 2021-03-16 Travel 1.2.840.1 1.2.351.647 [id number] Univers 00:00:00 00:00:00 26016.1.1 350.1.13.10 ity of 3.104.2.7 [place]7.3.698 [place] .3.171550 084.8 Medica l .8 [place] 2021-03-16 2021-03-16 Travel 1.2.840.1 1.2.897.452 [id number] Univers 00:00:00 00:00:00 88469.1.1 350.1.13.10 ity of 3.104.2.7 4.[place].7.3.698 [place] .3.887402 084.8 Medica l .8 [place] 2021-03-11 2021-03-[address] [facility] [id number] Univers 09:44:00 13:06:00 HALIMA ity of [facility] 2021-03-11 2021-03-11 Emergency Geeta, 1.2.840.1 [id number] Univers 09:44:00 13:06:00 Halima Cates 38328.1.1 ity of 3.104.2.7 [place] .3.095805 Medica l .8 [place] 2021-03-11 2021-03-[address] [facility] [id number] Univers 09:44:00 13:06:00 HALIMA ity [facility] 2021-03-11 2021-03-11 Emergency Geeta, 1.2.840.5 [id number] Univers 09:44:00 13:06:00 Halima Cates 45602.1.1 ity of 3.104.2.7 [place] .3.350377 Medica l .[address] [place] [address] 2021-03-11 2021-03-[address] [facility] E[facility] [id number] Univers 09:44:00 13:06:00 HALIMA ity [facility] 2021-03-11 2021-03-[address] [facility] ERT [id number] Univers 09:44:00 09:44:00 HALIMA ity [facility] 2021-03-11 2021-03-11 Travel 1.2.840.1 1.2.981.670 [id number] Univers 00:00:00 00:00:00 15156.1.1 350.1.13.10 ity of 3.104.2.7 4.2.7.3.698 [place] .3.192746 084.8 Medica l .8 [place] 2021-03-11 2021-03-11 Travel 1.2.840.1 1.2.804.632 [id number] Univers 00:00:00 00:00:00 12517.1.1 350.1.13.10 ity of 3.104.2.7 4.2.7.3.698 [place] .3.314676 084.8 Medica l .8 [place] 2021-03-08 2021-03-08 Ash Collector [place] 1.2.840.1 1020 [id number] Univers 15:00:00 15:15:00 Visit Pcp-Lab 05000.1.1 ity of 3.104.2.7 [place] .3.017824 Medica l .8 [place] 2021-03-08 2021-03-08 Ash Collector [place] 1.2.840.1 0 [id number] Univers 15:00:00 15:15:00 Visit Pcp-Lab 10815.1.1 ity of 3.104.2.7 [place] .3.257927 Medica l .8 [place] 2021-03-08 2021-03-08 [facility] [id number] Univers 15:00:00 15:00:00 RALEIGH wesley [facility] 2021-01-31 2021-01-31 Outpatient R SELF, [facility] [id number] Univers 10:15:00 10:55:06 DERRELL wesley [facility] 2020-12-29 2020-12-29 Outpatient R SELF, [facility] [id number] Univers 08:00:00 08:41:[address] [facility] 2020-12-29 2020-12-29 Outpatient R SELF, [facility] [id number] Univers 08:00:00 08:41:[address] [facility] 2020-12-29 2020-12-29 Travel 1.2.840.1 1.2.018.231 [id number] Univers 00:00:00 00:00:00 48236.1.1 350.1.13.10 ity of 3.104.2.7 4.[place].7.3.698 [place] .3.633900 084.8 Medica l .8 [place] 2020-12-29 2020-12-29 Travel 1.2.840.1 1.2.320.423 [id number] Univers 00:00:00 00:00:00 70674.1.1 350.1.13.10 ity of 3.104.2.7 4.[place].7.3.698 [place] .3.989474 084.8 Medica l .8 [place] 2020-12-22 2020-12-22 Outpatient R SELF, [facility] [id number] Univers 09:30:00 09:30:00 DERRELL wesley [facility] 2020-12-22 2020-12-22 Outpatient R SELF, [facility] [id number] Univers 09:30:00 09:30:[address] [facility] 2020-11-10 2020-11-10 Outpatient R SHE, [facility] [id number] Univers 09:30:00 09:30:00 [facility] 2020-[facility]-10 2020-11-10 Orders Doctor 1.2.840.6 [id number] Univers 00:00:00 00:00:00 Only Unassigned, 22846.1.1 ity of [place] 3.104.2.7 [place] .3.961333 Medica l .8 [place] 2020-11-10 2020-11-10 Travel 1.2.840.1 1.2.140.081 [id number] Univers 00:00:00 00:00:00 89298.1.1 350.1.13.10 ity of 3.104.2.7 4.2.7.3.698 [place] .3.419851 084.8 Medica l .8 [place] 2020-10-11 2020-10-11 Outpatient R SELF, [facility] [id number] Univers 08:00:00 08:00:00 DERRELL martinez [facility] 2020-10-11 2020-10-11 Travel 1.2.840.1 1.2.769.875 [id number] Univers 00:00:00 00:00:00 56478.1.1 350.1.13.10 ity of 3.104.2.7 4.2.7.3.698 [place] .3.311423 084.8 Medica l .8 [place] 2020-09-13 2020-09-13 Outpatient R LARISSA, [facility] [id number] Univers 08:00:00 08:00:00 DERRELL ity o f [facility] 2020-09-13 2020-09-13 Travel 1.2.840.1 1.2.999.458 [id number] Univers 00:00:00 00:00:00 78872.1.1 350.1.13.10 ity of 3.104.2.7 4.2.7.3.698 [place] .3.753263 084.8 Medica l .8 [place] 2020-09-02 2020-09-02 Emergency Rose, [facility] 1.2.840.114 [id number] 16:12:00 20:21:00 Patti Condon 350.1.13.10 [place] 4.2.7.2.686 [place] [id number] 2020-09-02 2020-09-02 Emergency Rose, 1.2.840.1 [id number] [facility] 16:12:00 20:21:00 Patti 87510.1.1 ity of 3.104.2.7 [place] .3.499345 Medica l .8 [place] 2020-09-02 2020-09-02 Orders Doctor MOO 1.2.840.114 [id number] 00:00:00 00:00:00 Only Unassigned, QUITA 350.1.13.10 [place] [facility] 4.2.7.2.686 [id number] 009 2020-09-02 2020-09-02 Travel 1.2.840.1 1.2.584.673 [id number] Univers 00:00:00 00:00:00 90767.1.1 350.1.13.10 ity of 3.104.2.7 4.2.7.3.698 [place] .3.369121 084.8 Medica l .8 [place] 2020-09-02 2020-09-02 Orders Doctor 1.2.840.2 [id number] Univers 00:00:00 00:00:00 Only Unassigned, 43754.1.1 ity of [place] 3.104.2.7 [place] .3.717132 Medica l .8 [place] 2020-08-25 2020-08-25 Outpatient R [facility] [id number] Univers 09:15:00 09:15:00 [facility] 2020-08-09 2020-08-09 Outpatient R SELF, [facility] [id number] Univers 08:45:00 08:45:[address] [facility] 2020-06-28 2020-06-28 Outpatient R FABIÁN, [facility] [id number] Univers 13:45:00 13:45:00 [facility] 2020-06-21 2020-06-21 Outpatient R SELF, [facility] [id number] Univers 15:15:00 15:15:[address] [facility] 2020-06-07 2020-06-07 Outpatient R SELF, [facility] [id number] Univers 08:45:00 08:45:[address] [facility] 2020-05-25 2020-05-25 Outpatient R MICHELLE, [facility] [id number] Univers 08:30:00 08:30:00 CRISTO [facility] 2020-03-15 2020-03-15 Outpatient R FABIÁN, [facility] [id number] Univers 13:00:00 [facility] 2020-03-08 Outpatient R SELF, [facility] [id number] Univers 13:00:00 13:00:[address] [facility] 2020-02-16 2020-02-16 Outpatient R SELF, [facility] [id number] Univers 11:00:00 11:00:[address] [facility] 2020-01-27 2020-01-27 Outpatient R SELF, [facility] [id number] Univers 11:45:00 11:45:00 DERRELL martinez [facility] 2020-01-19 2020-01-19 Outpatient R SELF, [facility] [id number] Univers 08:00:00 08:00:00 DERRELL martinez [facility] 2019-12-22 2019-12-22 Outpatient R LARISSA, [facility] [id number] Univers 08:45:00 08:45:00 DERRELL martinez [facility] 2019-12-05 2019-12-05 Outpatient R ALEISHA, [facility] [id number] Univers 10:45:00 10:45:00 PRISCA [facility] 2019-10-23 2019-10-23 Outpatient R DELGADO, [facility] [id number] Univers 09:15:00 09:15:00 KATH [facility] 2019-10-15 2019-10-15 Outpatient R SHE, [facility] [id number] Univers 11:30:00 11:30:00 ROBERTHCA [facility] 2019-10-01 2019-10-01 Outpatient R SHE, [facility] [id number] Univers 14:30:00 14:30:00 [facility] 2019-09-01 2019-09-01 Outpatient R LARISSA, [facility] [id number] Univers 08:45:00 08:45:00 DERRELL martinez [facility] 2019-08-06 2019-08-06 Outpatient R SHALOM, [facility] [id number] Univers 13:00:00 13:00:00 ANGELA [facility] Results Test Description Test Time Test Comments Results Result Comments Source LITHIUM 2022-07-26 17:27:33 Test Item Value Reference Range Interpretation Comme nts [place] (test code = 2416307458) 0.3 mmol/L 0.6-1.2 L ZAINAB (test code = ZAINAB) Toxic Range: ? Greater than 1.2 mmol/L Lab Interpretation (test code = 06983-8) [facility] 17:27:33 Test Item Value Reference Range Interpretation Comments [place] (test code = 0.3 mmol/L 0.6-1.2 L 1342792116) ZAINAB (test code = ZAINAB) Toxic Range: ? Greater than 1.2 mmol/L Lab Interpretation (test Abnormal code = 62838-4) [facility]2023-06-14 17:27:33 Test Item Value Reference Range Interpretation Comments [place] (test code = 0.3 mmol/L 0.6-1.2 L 6876844858) ZAINAB (test code = ZAINAB) Toxic Range: ? Greater than 1.2 mmol/L Lab Interpretation (test Abnormal code = 83668-7) [facility]2023-06-14 17:27:33 Test Item Value Reference Range Interpretation Comments [place] (test code = 0.3 mmol/L 0.6-1.2 L 9351488780) ZAINAB (test code = ZAINAB) Toxic Range: ? Greater than 1.2 mmol/L Lab Interpretation (test Abnormal code = 66063-5) [facility]2023-06-14 17:27:33 Test Item Value Reference Range Interpretation Comments [place] (test code = 0.3 mmol/L 0.6-1.2 L 1254628586) ZAINAB (test code = ZAINAB) Toxic Range: ? Greater than 1.2 mmol/L Lab Interpretation (test Abnormal code = 15782-8) [facility]2023-06-14 17:27:33 Test Item Value Reference Range Interpretation Comments [place] (test code = 0.3 mmol/L 0.6-1.2 L 4911826512) ZAINAB (test code = ZAINAB) Toxic Range: ? Greater than 1.2 mmol/L Lab Interpretation (test Abnormal code = 46482-4) [facility]2023-06-14 17:27:33 Test Item Value Reference Range Interpretation Comments [place] (test code = 0.3 mmol/L 0.6-1.2 L 9039065438) ZAINAB (test code = ZAINAB) Toxic Range: ? Greater than 1.2 mmol/L Lab Interpretation (test Abnormal code = 41967-0) [facility]2023-06-14 17:27:33 Test Item Value Reference Range Interpretation Comments [place] (test code = 0.3 mmol/L 0.6-1.2 L 9706839726) ZAINAB (test code = ZAINAB) Toxic Range: ? Greater than 1.2 mmol/L Lab Interpretation (test Abnormal code = 93159-2) [place] 23804-06-14 17:27:33 Test Item Value Reference Range Interpretation Comments [place] (test code = 0.3 mmol/L 0.6-1.2 L 7736427505) ZAINAB (test code = ZAINAB) Toxic Range: ? Greater than 1.2 mmol/L Lab Interpretation (test Abnormal code = 54278-7) [facility]2023-01-04 20:05:22 Test Item Value Reference Range Interpretation Comments [place] (test code = 1.1 mmol/L 0.6-1.2 2707801821) ZAINAB (test code = ZAINAB) Toxic Range: ? Greater than 1.2 mmol/L Lab Interpretation (test Normal code = 16718-5) [facility]2023-01-04 20:05:22 Test Item Value Reference Range Interpretation Comments [place] (test code = 1.1 mmol/L 0.6-1.2 8496893617) ZAINAB (test code = ZAINAB) Toxic Range: ? Greater than 1.2 mmol/L Lab Interpretation (test Normal code = 07663-9) [facility]2023-01-04 20:05:22 Test Item Value Reference Range Interpretation Comments [place] (test code = 1.1 mmol/L 0.6-1.2 4190600371) ZAINAB (test code = ZAINAB) Toxic Range: ? Greater than 1.2 mmol/L Lab Interpretation (test Normal code = 57204-2) [facility]2023-01-04 20:05:22 Test Item Value Reference Range Interpretation Comments [place] (test code = 1.1 mmol/L 0.6-1.2 9583099713) ZAINAB (test code = ZAINAB) Toxic Range: ? Greater than 1.2 mmol/L Lab Interpretation (test Normal code = 26877-3) [facility]2023-01-04 20:05:22 Test Item Value Reference Range Interpretation Comments [place] (test code = 1.1 mmol/L 0.6-1.2 0533675331) ZAINAB (test code = ZAINAB) Toxic Range: ? Greater than 1.2 mmol/L Lab Interpretation (test Normal code = 73657-5) [facility]2023-01-04 20:05:22 Test Item Value Reference Range Interpretation Comments [place] (test code = 1.1 mmol/L 0.6-1.2 0188765726) ZAINAB (test code = ZAINAB) Toxic Range: ? Greater than 1.2 mmol/L Lab Interpretation (test Normal code = 78263-5) [facility]2023-01-04 20:05:22 Test Item Value Reference Range Interpretation Comments [place] (test code = 1.1 mmol/L 0.6-1.2 6014854234) ZAINAB (test code = ZAINAB) Toxic Range: ? Greater than 1.2 mmol/L Lab Interpretation (test Normal code = 72912-8) [facility]2023-01-04 20:05:22 Test Item Value Reference Range Interpretation Comments [place] (test code = 1.1 mmol/L 0.6-1.2 8802507498) ZAINAB (test code = ZAINAB) Toxic Range: ? Greater than 1.2 mmol/L Lab Interpretation (test Normal code = 63515-2) [facility]2023-01-04 20:05:22 Test Item Value Reference Range Interpretation Comments [place] (test code = 1.1 mmol/L 0.6-1.2 1000424878) ZAINAB (test code = ZAINAB) Toxic Range: ? Greater than 1.2 mmol/L Lab Interpretation (test Normal code = 76276-5) [facility]2023-01-04 20:05:22 Test Item Value Reference Range Interpretation Comments [place] (test code = 1.1 mmol/L 0.6-1.2 4134472123) ZAINAB (test code = ZAINAB) Toxic Range: ? Greater than 1.2 mmol/L Lab Interpretation (test Normal code = 87573-6) [facility]IS[facility])2018-07-20 07:27:00 Test Item [...] VERY HIGH.........>/ = 190 mg/dL Comments to Furniture Cleaner: ADD TO AM LABSLIPID PROFILE (CORONARY RISK)2018-07-20 [...] MG/DL 0-99 code = LDL) Comments to Furniture Cleaner: ADD TO AM LABSPROTHROMBIN [id number] 06:24:00 Test Item Value Reference Range Interpretation [...] myocar dial infarction. 2.0 - 3.0 3. Fish Farm Manager al prosthesis hear t valves, recurre nt systemic emboli sm. 3.0 - 4.5 Comments to Furniture Cleaner: NURSE WILL BRING SPECIMEN TO LABPTT ACTIVATED 2018-07-20 06:24:00 Test Item Value Reference Range Interpretation Comments PTT ACTIVATED (test code = APTT) 29.3 SECONDS 22.0-33.0 N Comments to Furniture Cleaner: NURSE WILL BRING SPECIMEN TO LABBASIC METABOLIC [...] 9.6 MG/DL 8.4-10.2 N CA) Comments to Furniture Cleaner: NURSE WILL BRING SPECIMEN TO LAB Comments to Furniture Cleaner: NURSE WILL BRING SPECIMEN TO [id number] 06:13:00 Test Item Value Reference Range Interpretation Comments MAGNESIUM (test code = MAG) 2.2 MG/DL 1.6-2.3 N Comments to Furniture Cleaner: NURSE WILL BRING SPECIMEN TO LAB Comments to Furniture Cleaner: NURSE WILL BRING SPECIMEN TO LABCBC W/AUTO [id number] 06:02:00 Test Item Value Reference Range Interpretation [...] Notes Date/Time Note Provider Source 2018-07-20 06:55:00-00:00 [id number] [place] [address] PATIENT NAME: UDAY SCHULER ADMIT DATE: 07/20/18 ACCOUNT NO: [id number] ROOM NO: AGE: 43 REPORT TYPE: CARDIAC CATHETERIZATION REPORT SEX: F ADMITTING PHYSICIAN: ATTENDING PHYSICIAN:Rosa Harper MD PROCEDURE DATE: 07/20/2018 BD SPECIAL EDUCATION TEACHER: Rosa Harper MD TITLE OF THE PROCEDURE: [...] emoral artery area for local anesthesia. A 6-Romansh sheath was placed in the right common [...] complications. She was transferred [facility] area for observation to be discharged later on today on medical therapy PATIENT NAME: UDAY SCHULER ACCOUNT #: Z [id number] and risk factor modification. Dictated By: Rosa Harper MD WT: CATH:ADRIANA/KIAN/RIGOBERTO Conf#: [id number]/DID#: [id number] Authenticated by Rosa Harper MD On 09/2018 08:15:22 AM at 0815 PATIENT NAME: UDAY SCHULER ACCOUNT #: Z [id number] 2018-07-20 06:06:00-00:00 [id number] [place] [address] PATIENT NAME: UDAY SCHULER ADMIT DATE: 07/20/18 ACCOUNT NO: [id number] ROOM NO: AGE: 43 REPORT TYPE: ELECTROCARDIOGRAM SEX: F ADMITTING PHYSICIAN: ATTENDING PHYSICIAN:Rosa Harper MD Order: [id number] Test Reason : CAD Test Date/Time Stamp: [...] PATIENT NAME: UDAY SCHULER ACCOUNT #: Z [id number] 2018-07-19 18:55:00-00:00 [id number] [place] [address] PATIENT NAME: UDAY SCHULER ADMIT DATE: 07/20/18 ACCOUNT NO: [id number] ROOM NO: AGE: 43 REPORT TYPE: HISTORY AND PHYSICAL SEX: F ADMITTING PHYSICIAN: ATTENDING PHYSICIAN:Rosa Harper MD ADMISSION DATE: 07/20/2018 BD SPECIAL EDUCATION TEACHER: Rosa Harper MD REASON FOR ADMISSION: Chest [...] PATIENT NAME: UDAY SCHULER ACCOUNT #: Z [id number] HEENT: Head, atraumatic and normocephalic. Eyes and [...] By: Rosa Harper MD WT: HP:TRAVIS/KIAN/RIGOBERTO Conf#: [id number]/DID#: [id number] Authenticated by Rosa Harper MD On 07/13 07:20:46 AM at 0721 PATIENT NAME: UDAY SCHULER ACCOUNT #: Z [id number]
--- NOTE | 2022-10-03 19:25 | EDPHYS ---
Physician Documentation [facility] Name: Shivani Lagunas Age: 47 yrs Sex: Female : 1975 Arrival Date: 10/03/2022 Time: 18:20 Bed IW2 Private MD: ED Physician Drew Longo HPI: 10/04 00:13 This 47 yrs old Female presents to ER via Ambulatory with complaints of kb Fingers swelling and pain. 00:13 Pt was seen last week for redness, swelling and pain to fingertips that started a month kb prior to visit after a manicure. Pt reports redness and swelling has improved, but is still having pain. Onset: The symptoms/episode began/occurred 1 month(s) ago. Severity of symptoms: At their worst the symptoms were moderate in the emergency department the symptoms have improved. The patient has not experienced similar symptoms in the past. The patient has been recently seen by a physician:. Historical: - Allergies: 10/03 18:40 Sulfa (Sulfonamide Antibiotics); aa5 - PMHx: 18:40 Bipolar disorder; Hypertensive disorder; Schizophrenia; aa5 - PSHx: 18:40 section; Cholecystectomy; aa5 ROS: 10/04 00:11 Constitutional: Negative for fever, chills, and weight loss. kb MS/extremity: Positive for pain, of the all fingertips. All other systems are negative. Exam: 00:11 Constitutional: This is a well developed, well nourished patient who is awake, alert, kb and in no acute distress. Head/Face: Normocephalic, atraumatic. ENT: Moist Mucous membranes Cardiovascular: Regular rate and rhythm with a normal S1 and S2. No gallops, murmurs, or rubs. No pulse deficits. Respiratory: Respirations even and unlabored. No increased work of breathing. Talking in full sentences MS/ Extremity: Pulses equal, no cyanosis. Neurovascular intact. Full, normal range of motion. Neuro: Awake and alert, GCS 15, oriented to person, place, time, and situation. Moves all extremities. Normal gait. 00:11 Skin: slight swelling to all fingertips which has improved since I evaluated her last week. Erythema has since resolved as well. Vital Signs: 10/03 18:38 BP 150 / 88; Pulse 88; Resp 16 S; Temp 97.7(TE); Pulse Ox 100% on R/A; Weight 94.35 kg aa5 (R); Height 5 ft. 6 in. (R); 18:38 Body Mass Index 33.57 (94.35 kg, 167.64 cm) aa5 MDM: 18:34 Patient medically screened. kb 10/04 00:12 Differential diagnosis: cellulitis, paronychia, fungal infection. Data reviewed: vital kb signs, nurses notes. Counseling: I had a detailed discussion with the patient and/or guardian regarding the historical points, exam findings, and any diagnostic results supporting the discharge/admit diagnosis, the need for outpatient follow up, a mining captain, a family practitioner, to return to the emergency department if symptoms worsen or persist or if there are any questions or concerns that arise at home. ED course: blood cultures from last visit show no growth. Pt educated to follow up with PCP and/or derm. Administered Medications: No medications were administered Disposition Summary: 10/03/22 19:24 Discharge Ordered Location: Home kb Condition: Stable kb Diagnosis - Pain in hand and fingers kb Followup: kb - With: Emergency Department - When: As needed - Reason: Worsening of condition Followup: kb - With: Private Physician - When: 2 - 3 days - Reason: Recheck today's complaints, Continuance of care, Re-evaluation by your physician Followup: kb - With: Jelani Robertson MD - When: 2 - 3 days - Reason: Recheck today's complaints Discharge Instructions: - Discharge Summary Sheet kb - Cellulitis, Adult, Zhji-mk-Malg kb Forms: - Medication Reconciliation Form kb - Thank You Letter kb - Antibiotic Education kb - Prescription Opioid Use kb - Patient Portal Instructions kb - Leadership Thank You Letter kb Signatures: Shantelle Peraza, ABAD-C ABAD-Soha Gaona, RN RN aa5
--- NOTE | 2022-10-03 19:25 | ER ---
Nurse's Notes [facility] Name: Shivani Lagunas Age: 47 yrs Sex: Female : 1975 Arrival Date: 10/03/2022 Time: 18:20 Bed IW2 Private MD: Diagnosis: Pain in hand and fingers Presentation: 10/03 18:38 Chief complaint: Patient states: "I was seen here last week with an infection to my aa5 fingernails and I've been taking antibiotics for about 6 days and now the pain is radiating down both my arms". Coronavirus screen: At this time, the client does not indicate any symptoms associated with coronavirus-19. Ebola Screen: Patient denies travel to an Ebola-affected area in the 21 days before illness onset. Initial Sepsis Screen: Does the patient meet any 2 criteria? No. Patient's initial sepsis screen is negative. Does the patient have a suspected source of infection? No. Patient's initial sepsis screen is negative. Risk Assessment: Do you want to hurt yourself or someone else? Patient reports no desire to harm self or others. Onset of symptoms was September 2022. 18:38 Acuity: ALICIA 3 aa5 18:38 Method Of Arrival: Ambulatory aa5 Historical: - Allergies: 18:40 Sulfa (Sulfonamide Antibiotics); aa5 - PMHx: 18:40 Bipolar disorder; Hypertensive disorder; Schizophrenia; aa5 - PSHx: 18:40 section; Cholecystectomy; aa5 Screenin:00 [facility] ED Fall Risk Assessment (Adult) History of falling in the last 3 months, pf1 including since admission No falls in past 3 months (0 pts) Confusion or Disorientation No (0 pts) Intoxicated or Sedated No (0 pts) Impaired Gait No (0 pts) Mobility Assist Device Used No (0 pt) Altered Elimination No (0 pt) Score/Fall Risk Level 0 - 2 = Low Risk Oriented to surroundings, Maintained a safe environment, Educated pt \\T\\ family on fall prevention, incl call for assistance when getting out of bed, Assessed \\T\\ reinforced patient's understanding of fall precautions, Provided non-skid footwear, Hourly rounding (assess needs \\T\\ fall precautionary measures) done, Used ambulatory aids as needed (educated on \\T\\ assisted with), Used gait belt as appropriate. 19:00 Abuse screen: Denies threats or abuse. Nutritional screening: No deficits noted. pf1 Tuberculosis screening: No symptoms or risk factors identified. Assessment: 19:00 General: Appears in no apparent distress. comfortable, well groomed, well developed, pf1 Behavior is calm, cooperative, appropriate for age, quiet. 19:00 Pain: Complains of pain in all fingertips. Neuro: No deficits noted. Level of pf1 Consciousness is awake, alert, obeys commands, Oriented to person, place, time, situation. Cardiovascular: No deficits noted. Capillary refill < 3 seconds Patient's skin is warm and dry. Respiratory: No deficits noted. Airway is patent Respiratory effort is even, unlabored, Respiratory pattern is regular, symmetrical. GI: No deficits noted. No signs and/or symptoms were reported involving the gastrointestinal system. : No deficits noted. No signs and/or symptoms were reported regarding the genitourinary system. EENT: No deficits noted. No signs and/or symptoms were reported regarding the EENT system. Derm: Reports pain all fingertips. Vital Signs: 18:38 BP 150 / 88; Pulse 88; Resp 16 S; Temp 97.7(TE); Pulse Ox 100% on R/A; Weight 94.35 kg aa5 (R); Height 5 ft. 6 in. (R); 18:38 Body Mass Index 33.57 (94.35 kg, 167.64 cm) aa5 ED Course: 18:23 Patient arrived in ED. im 18:34 Shantelle Peraza F[facility]-C is [facility]. kb 18:34 Drew Longo DO is Attending Physician. kb 18:37 Arm band placed on. aa5 18:40 Triage completed. aa5 19:00 Patient has correct armband on for positive identification. pf1 19:24 Jelani Robertson MD is Referral Physician. kb 19:45 Provided Education on: pain medication administration. pf1 19:45 No provider procedures requiring assistance completed. Patient did not have IV access pf1 during this emergency room visit. Administered Medications: No medications were administered Medication: 19:45 VIS not applicable for this client. pf1 Outcome: 19:24 Discharge ordered by . kb 19:35 Discharged to home ambulatory. rs5 19:35 Condition: stable 19:35 Discharge instructions given to patient, Instructed on discharge instructions, follow up and referral plans. Demonstrated understanding of instructions, follow-up care. 19:35 Patient left the ED. rs5 Signatures: Shantelle Peraza, JULIAN STRIP MACHINE OPERATOR-Soha Gaona RN RN aa5 Dora Oliver, AMANDA RN pf1 Zan Murdock RN RN rs5 Rohini Garcia Corrections: (The following items were deleted from the chart) 18:41 18:38 BP 150 / 88; Pulse 88bpm; Resp 16bpm; Spontaneous; Pulse Ox 100% RA; Temp 97.7F aa5 Temporal; aa5
[2022-10-03 19:54] VITALS: BP 150/88; TEMP 97.7; O2SAT 100
== END 2022-10-03 19:35 | disposition home or self-care (01) ==
LOC: ER 18:20
DX: M79.645 Pain in left finger(s) (principal); M79.644 Pain in right finger(s); M79.642 Pain in left hand; M79.641 Pain in right hand; Z88.0 Allergy status to penicillin
CPT/HCPCS: 99282

== ENCOUNTER 2022-10-30 20:40 | Emergency (ER) | payer OTHER ==
--- OUTSIDE RECORDS SUMMARY | 2022-10-30 20:59 | XMS REPORT | Continuity of Care Document ---
:1975 Author Organization [facility] t Address [address] [place] [address] [address] [place] [address] Care Team Providers Name Role Phone Pcp, Patient Does Not Have A Primary Care Physician [phone] 00-0000 ONEIDA MONTANA Attending Clinician Unavailable Elidia Cordero MD Attending Clinician [phone] c-Lab Attending Clinician Unavailable Jewel Lindsey MD Attending Clinician JEWEL LINDSEY Attending Clinician Unavailable Doctor Unassigned, [place] Attending Clinician Unavailable Kath Parra MD Attending Clinician Pob, [facility] Main Attending Clinician Unavailable KATH PARRA Attending Clinician Unavailable DERRELL DIAS Attending Clinician Unavailable SARA OKEEFE Attending Clinician Unavailable SARA OKEEFE Attending Clinician Unavailable Pathology Attending Clinician Unavailable Pcp-Lab Attending Clinician Unavailable IGOR SAAVEDRA Attending Clinician Unavailable REX RODRIGUEZ Attending Clinician Unavailable HILARY MOORE Attending Clinician Unavailable HILARY MOORE Attending Clinician Unavailable Igor Saavedra MD Attending Clinician GIGI [place] Attending Clinician Unavailable Gigi Ny DO Attending Clinician Robert Best MD, Zane Attending Clinician Marycruz VAZQUEZ, Deonte Attending Clinician Unavailable UNKNOWN, ATTENDING Attending Clinician Unavailable SALLY MITCHELL Attending Clinician Unavailable SALLY MITCHELL Attending Clinician Unavailable Salbador Lockwood MD Attending Clinician SALBADOR LOCKWOOD Attending Clinician Unavailable HALIMA CONNOR Attending Clinician Unavailable Halima Connor DO Attending Clinician ROBERT NOWAK Attending Clinician Unavailable Patti Hutton Attending Clinician CRISTO MARTINEZ Attending Clinician Unavailable JEWEL MORAES Attending Clinician Unavailable KATH DELGADO Attending Clinician Unavailable ANGELA RAUSCH Attending Clinician Unavailable Payers Payer Name Policy Type Policy Number Effective Date Expiration Date S [facility] MEDICAID SSI PENDING 2021 PENDING 00:00:00 Problems Condition Condition Condition Status Onset Resolution Last Treating Co mments Source Name Details Category Date Date Treatment Clinician Date Iron Iron Disease Active Univers deficiency deficiency 10-19 [place] due [place] to chronic 00 Me dical blood loss blood loss Br anch Gastroesop Gastroesop Disease Active U nivers hageal hageal 10-19 ity of reflux reflux 00:00: [place] disease, disease, 00 Medica l unspecifie unspecifie Br anch d whether d whether esophagiti esophagiti s present s present No known No known Disease Unive rs active active ity of problems problems [facility] Allergies, Adverse Reactions, Alerts Allergy Allergy [...] Quantity Comments Source Gender identity Universit y [facility] Sexual orientation Univer sity [facility] History of Social 2022-10-04 2022-10-04 Univers ity of function 00:00:00 00:00:00 [facility] Exposure to 2022-02-05 2022-02-15 Not sure [facility]-CoV-2 (event) 00:00:00 08:57:00 [facility] Tobacco use and 2021-08-24 2021-08-24 Smokeless Universit y of exposure 00:00:00 00:00:00 tobacco non-user [facility] Sex Assigned At [birth year] Universit y of 00:00:00 00:00:00 [facility] Smoking Status Start Date Stop Date Source Never smoked tobacco [facility] Medications Ordered Filled Start Stop Current Ordering Indication Dosage Frequency Signature Comments Components Source Medication Medication Date Date Medication? Clinician (SIG) Name Name peg-electro 0 Yes [id number] Take as Univers lyte soln - directed ity of 236-22.74-[place] -[place] colonoscop Medi rogelio gram y Branch solution peg-electro 2022-0 Yes [id number] Take as Univers lyte soln 9-07 directed ity of 236-22.74-6 00:[place] -5.[place] colonoscop Medi rogelio gram y Branch solution peg-electro 2022-0 Yes [id number] Take as Univers lyte soln 9-07 directed ity of 236-22.74-6 00:[place] -5.[place] colonoscop Medi rogelio gram y Branch solution peg-electro 2022-0 Yes [id number] Take as Univers lyte soln 9-07 directed ity of 236-22.74-6 00:[place] -5.[place] colonoscop Medi rogelio gram y Branch solution peg-electro 2022-0 Yes [id number] Take as Univers lyte soln 9-07 directed ity of 236-22.74-6 00:[place] -5.[place] colonoscop Medi rogelio gram y Branch solution peg-electro 2022-0 Yes [id number] Take as Univers lyte soln 9-07 directed ity of 236-22.74-6 00:[place] -5.[place] colonoscop Medi rogelio gram y Branch solution busPIRone 2023-0 Yes [id number] 15mg Take 1 Un cristhian 15 mg 8-23 tablet by ity of tablet 00:00: mouth in [place] 00 the Medical morning Branch and 1 tablet in the evening. busPIRone 2023-0 Yes [id number] 15mg Take 1 Un cristhian 15 mg 8-23 tablet by ity of tablet 00:00: mouth in [place] 00 the Medical morning Branch and 1 tablet in the evening. busPIRone 2023-0 Yes [id number] 15mg Take 1 Un cristhian 15 mg 8-23 tablet by ity of tablet 00:00: mouth in [place] 00 the Medical morning Branch and 1 tablet in the evening. busPIRone 2023-0 Yes [id number] 15mg Take 1 Un cristhian 15 mg 8-23 tablet by ity of tablet 00:00: mouth in [place] 00 the Medical morning Branch and 1 tablet in the evening. busPIRone 2023-0 Yes [id number] 15mg Take 1 Un cristhian 15 mg 8-23 tablet by ity of tablet 00:00: mouth in [place] 00 the Medical morning Branch and 1 tablet in the evening. busPIRone 2023-0 Yes [id number] 15mg Take 1 Un cristhian 15 mg 8-23 tablet by ity of tablet 00:00: mouth in [place] 00 the Medical morning Branch and 1 tablet in the evening. busPIRone 2023-0 Yes [id number] 15mg Take 1 Un cristhian 15 mg 8-23 tablet by ity of tablet 00:00: mouth in [place] 00 the Medical morning Branch and 1 tablet in the evening. busPIRone 2023-0 Yes [id number] 15mg Take 1 Un cristhian 15 mg 8-23 tablet by ity of tablet 00:00: mouth in [place] 00 the Medical morning Branch and 1 tablet in the evening. busPIRone 2023-0 Yes [id number] 15mg Take 1 Un cristhian 15 mg 8-23 tablet by ity of tablet 00:00: mouth in [place] 00 the Medical morning Branch and 1 tablet in the evening. busPIRone 2023-0 Yes [id number] 15mg Take 1 Un cristhian 15 mg 8-23 tablet by ity of tablet 00:00: mouth in [place] 00 the Medical morning Branch and 1 tablet in the evening. busPIRone 2023-0 Yes [id number] 15mg Take 1 Un cristhian 15 mg 8-23 tablet by ity of tablet 00:00: mouth in [place] 00 the Medical morning Branch and 1 tablet in the evening. busPIRone 2023-0 Yes [id number] 15mg Take 1 Un cristhian 15 mg 8-23 tablet by ity of tablet 00:00: mouth in [place] 00 the Medical morning Branch and 1 tablet in the evening. busPIRone 2023-0 Yes [id number] 15mg Take 1 Un cristhian 15 mg 8-23 tablet by ity of tablet 00:00: mouth in [place] 00 the Medical morning Branch and 1 tablet in the evening. busPIRone 2023-0 Yes [id number] 15mg Take 1 Un cristhian 15 mg 8-23 tablet by ity of tablet 00:00: mouth in [place] 00 the Medical morning Branch and 1 tablet in the evening. busPIRone 2023-0 Yes [id number] 15mg Take 1 Un cristhian 15 mg 8-23 tablet by ity of tablet 00:00: mouth in [place] 00 the Medical morning Branch and 1 tablet in the evening. busPIRone 2023-0 Yes [id number] 15mg Take 1 Un cristhian 15 mg 8-23 tablet by ity of tablet 00:00: mouth in [place] 00 the Medical morning Branch and 1 tablet in the evening. clonazePAM 2023-0 Yes [id number] Take 1 U nivers 1 mg tablet 8-17 tablet by ity of 00:00: mouth [place] 00 twice Medical daily as Branch needed for anxiety. clonazePAM 2023-0 Yes [id number] Take 1 U nivers 1 mg tablet 8-17 tablet by ity of 00:00: mouth [place] 00 twice Medical daily as Branch needed for anxiety. clonazePAM 2023-0 Yes [id number] Take 1 U nivers 1 mg tablet 8-17 tablet by ity of 00:00: mouth [place] 00 twice Medical daily as Branch needed for anxiety. clonazePAM 2023-0 Yes [id number] Take 1 U nivers 1 mg tablet 8-17 tablet by ity of 00:00: mouth [place] 00 twice Medical daily as Branch needed for anxiety. clonazePAM 2023-0 Yes [id number] Take 1 U nivers 1 mg tablet 8-17 tablet by ity of 00:00: mouth [place] 00 twice Medical daily as Branch needed for anxiety. clonazePAM 2023-0 Yes [id number] Take 1 U nivers 1 mg tablet 8-17 tablet by ity of 00:00: mouth [place] 00 twice Medical daily as Branch needed for anxiety. clonazePAM 2023-0 Yes [id number] Take 1 U nivers 1 mg tablet 8-17 tablet by ity of 00:00: mouth [place] 00 twice Medical daily as Branch needed for anxiety. clonazePAM 3-0 Yes [id number] Take 1 U nivers 1 mg tablet 8-17 tablet by ity of 00:00: mouth [place] 00 twice Medical daily as Branch needed for anxiety. clonazePAM 3-0 Yes [id number] Take 1 U nivers 1 mg tablet 8-17 tablet by ity of 00:00: mouth [place] 00 twice Medical daily as Branch needed for anxiety. clonazePAM 3-0 Yes [id number] Take 1 U nivers 1 mg tablet 8-17 tablet by ity of 00:00: mouth [place] 00 twice Medical daily as Branch needed for anxiety. clonazePAM 3-0 Yes [id number] Take 1 U nivers 1 mg tablet 8-17 tablet by ity of 00:00: mouth [place] 00 twice Medical daily as Branch needed for anxiety. clonazePAM 3-0 Yes [id number] Take 1 U nivers 1 mg tablet 8-17 tablet by ity of 00:00: mouth [place] 00 twice Medical daily as Branch needed for anxiety. clonazePAM 3-0 Yes [id number] Take 1 U nivers 1 mg tablet 8-17 tablet by ity of 00:00: mouth [place] 00 twice Medical daily as Branch needed for anxiety. clonazePAM 3-0 Yes [id number] Take 1 U nivers 1 mg tablet 8-17 tablet by ity of 00:00: mouth [place] 00 twice Medical daily as Branch needed for anxiety. clonazePAM 2023-0 Yes [id number] Take 1 U nivers 1 mg tablet 8-17 tablet by ity of 00:00: mouth [place] 00 twice Medical daily as Branch needed for anxiety. clonazePAM 2023-0 Yes [id number] Take 1 U nivers 1 mg tablet 8-17 tablet by ity of 00:00: mouth [place] 00 twice Medical daily as Branch needed for anxiety. clonazePAM 2023-0 Yes [id number] Take 1 U nivers 1 mg tablet 8-17 tablet by ity of 00:00: mouth [place] 00 twice Medical daily as Branch needed for anxiety. clonazePAM 3-0 Yes [id number] Take 1 U nivers 1 mg tablet 8-17 tablet by ity of 00:00: mouth [place] 00 twice Medical daily as Branch needed for anxiety. DULoxetine 3-0 Yes [id number] 60mg Take 1 U nivers 60 mg 8-15 capsule by ity of capsule 00:00: mouth in [place] 00 the Medical morning Branch and 1 capsule in the evening. DULoxetine 2022-0 Yes [id number] 60mg Take 1 U nivers 60 mg 8-15 capsule by ity of capsule 00:00: mouth in [place] [address] the Medical morning Branch and 1 capsule in the evening. DULoxetine 2022-0 Yes [id number] 60mg Take 1 U nivers 60 mg 8-15 capsule by ity of capsule 00:00: mouth in [place] [address] the Medical morning Branch and 1 capsule in the evening. DULoxetine 2022-0 Yes [id number] 60mg Take 1 U nivers 60 mg 8-15 capsule by ity of capsule 00:00: mouth in [place] [address] the Medical morning Branch and 1 capsule in the evening. DULoxetine 2022-0 Yes [id number] 60mg Take 1 U nivers 60 mg 8-15 capsule by ity of capsule 00:00: mouth in [place] [address] the Medical morning Branch and 1 capsule in the evening. DULoxetine 3-0 Yes [id number] 60mg Take 1 U nivers 60 mg 8-15 capsule by ity of capsule 00:00: mouth in [place] [address] the Medical morning Branch and 1 capsule in the evening. DULoxetine 3-0 Yes [id number] 60mg Take 1 U nivers 60 mg 8-15 capsule by ity of capsule 00:00: mouth in [place] [address] the Medical morning Branch and 1 capsule in the evening. DULoxetine 3-0 Yes [id number] 60mg Take 1 U nivers 60 mg 8-15 capsule by ity of capsule 00:00: mouth in [place] [address] the Medical morning Branch and 1 capsule in the evening. DULoxetine 3-0 Yes [id number] 60mg Take 1 U nivers 60 mg 8-15 capsule by ity of capsule 00:00: mouth in [place] [address] the Medical morning Branch and 1 capsule in the evening. DULoxetine 3-0 Yes [id number] 60mg Take 1 U nivers 60 mg 8-15 capsule by ity of capsule 00:00: mouth in [place] [address] the [facility] morning [place] and 1 capsule in the evening. DULoxetine 3-0 Yes [id number] 60mg Take 1 U nivers 60 mg 8-15 capsule by ity of capsule 00:00: mouth in [place] [address] the [facility] morning [place] and 1 capsule in the evening. DULoxetine 2023-0 Yes [id number] 60mg Take 1 U nivers 60 mg 8-15 capsule by ity of capsule 00:00: mouth in [place] [address] the [facility] morning [place] and 1 capsule in the evening. DULoxetine 3-0 Yes [id number] 60mg Take 1 U nivers 60 mg 8-15 capsule by ity of capsule 00:00: mouth in [place] [address] the [facility] and 1 capsule in the evening. DULoxetine 3-0 Yes [id number] 60mg Take 1 U nivers 60 mg 8-15 capsule by ity of capsule 00:00: mouth in [place] [address] the [facility] and 1 capsule in the evening. DULoxetine 3-0 Yes [id number] 60mg Take 1 U nivers 60 mg 8-15 capsule by ity of capsule 00:00: mouth in [address] and 1 capsule in the evening. DULoxetine 3-0 Yes [id number] 60mg Take 1 U nivers 60 mg 8-15 capsule by ity of capsule 00:00: mouth in [place] [address] the [facility] and 1 capsule in the evening. DULoxetine 3-0 Yes [id number] 60mg Take 1 U nivers 60 mg 8-15 capsule by ity of capsule 00:00: mouth in [place] [address] the [facility] and 1 capsule in the evening. DULoxetine 3-0 Yes [id number] 60mg Take 1 U nivers 60 mg 8-15 capsule by ity of capsule 00:00: mouth in [place] [address] the [facility] and 1 capsule in the evening. DULoxetine 2023-0 Yes [id number] 60mg Take 1 U nivers 60 mg 8-15 capsule by ity of capsule 00:00: mouth in [address] and 1 capsule in the evening. lithium 3-0 Yes [id number] 900mg Take 2 Uni vers carbonate 8-02 tablets by ity of CR 450 mg 00:00: mouth at [facility] s SR tablet 00 bedtime. Medica l Branch busPIRone 2023-0 Yes [id number] 10mg Take 1 Un cristhian 10 mg 8-02 tablet by ity of tablet 00:00: mouth in [place] 00 the Medical morning Branch and 1 tablet in the evening. lamoTRIgine 2023-0 Yes [id number] 100mg Take 1 Univers 100 mg 8-02 tablet by ity of tablet 00:00: mouth in [place] 00 the Medical morning Branch and 1 tablet in the evening. lithium 2023-0 Yes [id number] 900mg Take 2 Uni vers carbonate 8-02 tablets by ity of CR 450 mg 00:00: [place] tablet 00 bedtime. [facility] [place] busPIRone 2023-0 Yes [id number] 10mg Take 1 Un cristhian 10 mg 8-02 tablet by ity of tablet 00:00: mouth in [place] [address] the Medical morning Branch and 1 tablet in the evening. lamoTRIgine 2023-0 Yes [id number] 100mg Take 1 Univers 100 mg 8-02 tablet by ity of tablet 00:00: mouth in [place] [address] the [facility] morning [place] and 1 tablet in the evening. lithium 2023-0 Yes [id number] 900mg Take 2 Uni vers carbonate 8-02 tablets by ity of CR 450 mg 00:00: [place] tablet 00 bedtime. [facility] busPIRone 2023-0 Yes [id number] 10mg Take 1 Un cristhian 10 mg 8-02 tablet by ity of tablet 00:00: mouth in [place] [address] the Medical morning Branch and 1 tablet in the evening. lamoTRIgine 2023-0 Yes [id number] 100mg Take 1 Univers 100 mg 8-02 tablet by ity of tablet 00:00: mouth in [place] [address] the [facility] morning Branch and 1 tablet in the evening. lithium 2023-0 Yes [id number] 900mg Take 2 Uni vers carbonate 8-02 tablets by ity of CR 450 mg 00:00: [place] 00 [facility] [facility] [place] busPIRone 2023-0 Yes [id number] 10mg Take 1 Un cristhian 10 mg 8-02 tablet by ity of tablet 00:00: mouth in [place] [address] the [facility] morning [place] and 1 tablet in the evening. lamoTRIgine 2023-0 Yes [id number] 100mg Take 1 Univers 100 mg 8-02 tablet by ity of tablet 00:00: mouth in [place] 00 the Medical morning Branch and 1 tablet in the evening. lithium 2023-0 Yes [id number] 900mg Take 2 Uni vers carbonate 8-02 tablets by ity of CR 450 mg 00:00: [place] tablet 00 bedtime. [facility] lamoTRIgine 3-0 Yes [id number] 100mg Take 1 Univers 100 mg 8-02 tablet by ity of tablet 00:00: mouth in [place] [address] the [facility] morning [place] and 1 tablet in the evening. lithium 3-0 Yes [id number] 900mg Take 2 Uni vers carbonate 8-02 tablets by ity of CR 450 mg 00:00: [place] SR tablet 00 bedtime. [facility] lamoTRIgine 3-0 Yes [id number] 100mg Take 1 Univers 100 mg 8-02 tablet by ity of tablet 00:00: mouth in [place] [address] the [facility] morning [place] and 1 tablet in the evening. lithium 3-0 Yes [id number] 900mg Take 2 Uni vers carbonate 8-02 tablets by ity of CR 450 mg 00:00: [place] tablet 00 bedtime. [facility] lamoTRIgine 3-0 Yes [id number] 100mg Take 1 Univers 100 mg 8-02 tablet by ity of tablet 00:00: mouth in [place] [address] the [facility] morning [place] and 1 tablet in the evening. lithium 3-0 Yes [id number] 900mg Take 2 Uni vers carbonate 8-02 tablets by ity of CR 450 mg 00:00: [place] SR tablet 00 bedtime. [facility] lamoTRIgine 3-0 Yes [id number] 100mg Take 1 Univers 100 mg 8-02 tablet by ity of tablet 00:00: mouth in [place] [address] the [facility] morning [place] and 1 tablet in the evening. lithium 2023-0 Yes [id number] 900mg Take 2 Uni vers carbonate 8-02 tablets by ity of CR 450 mg 00:00: [place] SR tablet 00 bedtime. [facility] lamoTRIgine 3-0 Yes [id number] 100mg Take 1 Univers 100 mg 8-02 tablet by ity of tablet 00:00: mouth in [place] [address] the [facility] morning [place] and 1 tablet in the evening. lithium 2023-0 Yes [id number] 900mg Take 2 Uni vers carbonate 8-02 tablets by ity of CR 450 mg 00:00: [place] tablet 00 bedtime. Medica l Branch lamoTRIgine 3-0 Yes [id number] 100mg Take 1 Univers 100 mg 8-02 tablet by ity of tablet 00:00: mouth in [place] [address] the [facility] morning [place] and 1 tablet in the evening. lithium 3-0 Yes [id number] 900mg Take 2 Uni vers carbonate 8-02 tablets by ity of CR 450 mg 00:00: [place] SR tablet 00 bedtime. Medica l Branch lamoTRIgine 3-0 Yes [id number] 100mg Take 1 Univers 100 mg 8-02 tablet by ity of tablet 00:00: mouth in [place] [address] the [facility] morning [place] and 1 tablet in the evening. lithium 3-0 Yes [id number] 900mg Take 2 Uni vers carbonate 8-02 tablets by ity of CR 450 mg 00:00: [place] SR tablet 00 bedtime. Medica l Branch lamoTRIgine 2022-0 Yes [id number] 100mg Take 1 Univers 100 mg 8-02 tablet by ity of tablet 00:00: mouth in [place] [address] the [facility] morning [place] and 1 tablet in the evening. lithium 3-0 Yes [id number] 900mg Take 2 Uni vers carbonate 8-02 tablets by ity of CR 450 mg 00:00: [place] 00 [facility]. [facility] lamoTRIgine 3-0 Yes [id number] 100mg Take 1 Univers 100 mg 8-02 tablet by ity of tablet 00:00: mouth in [place] [address] the [facility] morning [place] and 1 tablet in the evening. lithium 3-0 Yes [id number] 900mg Take 2 Uni vers carbonate 8-02 tablets by ity of CR 450 mg 00:00: [place] SR tablet 00 bedtime. Medica l Branch lamoTRIgine 3-0 Yes [id number] 100mg Take 1 Univers 100 mg 8-02 tablet by ity of tablet 00:00: mouth in [address] morning [place] and 1 tablet in the evening. lithium 2023-0 Yes [id number] 900mg Take 2 Uni vers carbonate 8-02 tablets by ity of CR 450 mg 00:00: [place] SR tablet 00 bedtime. Medica l Branch lamoTRIgine 3-0 Yes [id number] 100mg Take 1 Univers 100 mg 8-02 tablet by ity of tablet 00:00: mouth in [place] 00 the Medical morning Branch and 1 tablet in the evening. lithium 3-0 Yes [id number] 900mg Take 2 Uni vers carbonate 8-02 tablets by ity of CR 450 mg 00:00: [place] SR tablet 00 bedtime. [facility] lamoTRIgine 2022-0 Yes [id number] 100mg Take 1 Univers 100 mg 8-02 tablet by ity of tablet 00:00: mouth in [place] [address] the [facility] morning [place] and 1 tablet in the evening. lithium 3-0 Yes [id number] 900mg Take 2 Uni vers carbonate 8-02 tablets by ity of CR 450 mg 00:00: [place] SR tablet 00 bedtime. [facility] lamoTRIgine 2022-0 Yes [id number] 100mg Take 1 Univers 100 mg 8-02 tablet by ity of tablet 00:00: mouth in [place] [address] the [facility] morning [place] and 1 tablet in the evening. lithium 3-0 Yes [id number] 900mg Take 2 Uni vers carbonate 8-02 tablets by ity of CR 450 mg 00:00: [place] SR tablet 00 bedtime. [facility] lamoTRIgine 2022-0 Yes [id number] 100mg Take 1 Univers 100 mg 8-02 tablet by ity of tablet 00:00: mouth in [place] [address] the [facility] and 1 tablet in the evening. lithium 3-0 Yes [id number] 900mg Take 2 Uni vers carbonate 8-02 tablets by ity of CR 450 mg 00:00: [place] SR tablet 00 bedtime. [facility] lamoTRIgine 3-0 Yes [id number] 100mg Take 1 Univers 100 mg 8-02 tablet by ity of tablet 00:00: mouth in [place] [address] the [facility] morning [place] and 1 tablet in the evening. lithium 2023-0 Yes [id number] 900mg Take 2 Uni vers carbonate 8-02 tablets by ity of CR 450 mg 00:00: [place] SR tablet 00 bedtime. [facility] lamoTRIgine 3-0 Yes [id number] 100mg Take 1 Univers 100 mg 8-02 tablet by ity of tablet 00:00: mouth in [place] 00 the Medical morning Branch and 1 tablet in the evening. busPIRone 2023-0 2022- No [id number] 10mg Take 1 U nivers 10 mg 8-03 22- tablet by ity of tablet 00:00: 00:00 mouth in [place] 00 :00 the Medical morning Branch and 1 tablet in the evening. busPIRone 3-0 2022- No [id number] 10mg Take 1 U nivers 10 mg 8-03 22- tablet by ity of tablet 00:00: 00:00 mouth in [place] 00 :00 the Medical morning Branch and 1 tablet in the evening. busPIRone 3-0 2022- No [id number] 10mg Take 1 U nivers 10 mg 8-03 22- tablet by ity of tablet 00:00: 00:00 mouth in [place] 00 :00 the Medical morning Branch and 1 tablet in the evening. busPIRone 3-0 2022- No [id number] 10mg Take 1 U nivers 10 mg 8-03 22- tablet by ity of tablet 00:00: 00:00 mouth in [place] 00 :00 the Medical morning Branch and 1 tablet in the evening. busPIRone 3-0 2022- No [id number] 10mg Take 1 U nivers 10 mg 8-03 22- tablet by ity of tablet 00:00: 00:00 mouth in [place] 00 :00 the Medical morning Branch and 1 tablet in the evening. clonazePAM 2023-0 Yes [id number] Take 1 U nivers 1 mg tablet 7-19 tablet by ity of 00:00: mouth [place] 00 twice Medical daily as Branch needed for anxiety. clonazePAM 2023-0 Yes [id number] Take 1 U nivers 1 mg tablet 7-19 tablet by ity of 00:00: mouth [place] 00 twice Medical daily as Branch needed for anxiety. clonazePAM 2023-0 Yes [id number] Take 1 U nivers 1 mg tablet 7-19 tablet by ity of 00:00: mouth [place] 00 twice Medical daily as Branch needed for anxiety. clonazePAM 2023-0 Yes [id number] Take 1 U nivers 1 mg tablet 7-19 tablet by ity of 00:00: mouth [place] 00 twice Medical daily as Branch needed for anxiety. clonazePAM 2023-0 Yes [id number] Take 1 U nivers 1 mg tablet 7-19 tablet by ity of 00:00: mouth [place] 00 twice Medical daily as Branch needed for anxiety. clonazePAM 3-0 Yes [id number] Take 1 U nivers 1 mg tablet 7-19 tablet by ity of 00:00: mouth [place] 00 twice Medical daily as Branch needed for anxiety. clonazePAM 3-0 3- No [id number] Take 1 Univers 1 mg tablet -30 09-14 tablet by it y of 00:00: 00:00 mouth [place] 00 :00 twice Medical daily as Branch needed for anxiety. clonazePAM 3-0 3- No [id number] Take 1 Univers 1 mg tablet -30 09-14 tablet by it y of 00:00: 00:00 mouth [place] 00 :00 twice Medical daily as Branch needed for anxiety. clonazePAM 3-0 3- No [id number] Take 1 Univers 1 mg tablet -30 09-14 tablet by it y of 00:00: 00:00 mouth [place] 00 :00 twice Medical daily as Branch needed for anxiety. clonazePAM 2022-0 3- No [id number] Take 1 Univers 1 mg tablet 08-30-14 tablet by it y of 00:00: 00:00 mouth [place] 00 :00 twice Medical daily as Branch needed for anxiety. clonazePAM 3-0 3- No [id number] Take 1 [facility] 1 mg tablet 08-30-14 tablet by it y of 00:00: 00:00 mouth [place] 00 :00 twice Medical daily as Branch needed for anxiety. clonazePAM 3-0 3- No [id number] Take 1 [facility] 1 mg tablet 08-30-14 tablet by it y of 00:00: 00:00 mouth [place] 00 :00 twice Medical daily as Branch needed for anxiety. FUROSEMIDE 2023-0 2023- No 40mg Take 40 mg [facility] ORAL 6-26 07-14 by mouth ity of 09:33: 00:00 daily. [place] 26 :00 Medical Branch FUROSEMIDE 2023-0 2023- No 40mg Take 40 mg [facility] ORAL 6-14 -14 by mouth ity of 09:33: 00:00 daily. [place] 26 :00 Medical Branch FUROSEMIDE 2023-0 2023- No 40mg Take 40 mg [facility] ORAL 6-14 -14 by mouth ity of 09:33: 00:00 daily. [place] 26 :00 Medical Branch FUROSEMIDE 2023-0 2023- No 40mg Take 40 mg [facility] ORAL 6-14 06-14 by mouth ity of 09:33: 00:00 daily. [place] 26 :00 Medical Branch DULoxetine 3-0 Yes [id number] 60mg Take 1 U nivers 60 mg 6-14 capsule by ity of capsule 00:00: mouth in [place] 00 the Medical morning Branch and 1 capsule in the evening. lamoTRIgine 2022-0 Yes [id number] 100mg Take 1 [facility] 100 mg 6-14 tablet by ity of tablet 00:00: mouth in [place] 00 the Medical morning Branch and 1 tablet in the evening. lithium 2022-0 Yes [id number] 900mg Take 2 [facility] vers carbonate 6-14 tablets by ity of CR 450 mg 00:00: [place] tablet 00 bedtime. Medica l Branch traZODone 2022-0 Yes [id number] 50mg Take 1 U nivers 50 mg 6-14 tablet by ity of tablet 00:00: mouth at [place] [address] bedtime. Medical May cut Branch tablet in half. busPIRone 2022-0 Yes [id number] 10mg Take 1 Un cristhian 10 mg 6-14 tablet by ity of tablet 00:00: mouth in [place] 00 the Medical morning Branch and 1 tablet in the evening. DULoxetine 2022-0 Yes [id number] 60mg Take 1 U nivers 60 mg 6-14 capsule by ity of capsule 00:00: mouth in [place] 00 the Medical morning Branch and 1 capsule in the evening. lamoTRIgine 2022-0 Yes [id number] 100mg Take 1 [facility] 100 mg 6-14 tablet by ity of tablet 00:00: mouth in [place] 00 the Medical morning Branch and 1 tablet in the evening. lithium 2022-0 Yes [id number] 900mg Take 2 [facility] vers carbonate 6-14 tablets by ity of CR 450 mg 00:00: [place] tablet 00 bedtime. Medica l Branch traZODone 2022-0 Yes [id number] 50mg Take 1 U nivers 50 mg 6-14 tablet by ity of tablet 00:00: mouth at [place] [address] bedtime. Medical May cut Branch tablet in half. busPIRone 2022-0 Yes [id number] 10mg Take 1 Un cristhian 10 mg 6-14 tablet by ity of tablet 00:00: mouth in [place] [address] the Medical morning Branch and 1 tablet in the evening. DULoxetine 2023-0 Yes [id number] 60mg Take 1 U nivers 60 mg 6-14 capsule by ity of capsule 00:00: mouth in [place] [address] the [facility] morning Branch and 1 capsule in the evening. lamoTRIgine 2023-0 Yes [id number] 100mg Take 1 [facility] 100 mg 6-14 tablet by ity of tablet 00:00: mouth in [place] [address] the [facility] morning Branch and 1 tablet in the evening. lithium 2023-0 Yes [id number] 900mg Take 2 [facility] vers carbonate 6-14 tablets by ity of CR 450 mg 00:00: [place] tablet 00 bedtime. Medica l Branch traZODone 3-0 Yes [id number] 50mg Take 1 U nivers 50 mg 6-14 tablet by ity of tablet 00:00: mouth at [place] [address] bedtime. June cut Branch tablet in half. busPIRone 3-0 Yes [id number] 10mg Take 1 Un cristhian 10 mg 6-14 tablet by ity of tablet 00:00: mouth in [place] [address] the [facility] morning [place] and 1 tablet in the evening. DULoxetine 3-0 Yes [id number] 60mg Take 1 U nivers 60 mg 6-14 capsule by ity of capsule 00:00: mouth in [place] [address] the [facility] morning [place] and 1 capsule in the evening. lamoTRIgine 3-0 Yes [id number] 100mg Take 1 [facility] 100 mg 6-14 tablet by ity of tablet 00:00: mouth in [place] [address] the [facility] morning [place] and 1 tablet in the evening. lithium 3-0 Yes [id number] 900mg Take 2 [facility] vers carbonate 6-14 tablets by ity of CR 450 mg 00:00: [place] tablet 00 bedtime. Medica l Branch traZODone 3-0 Yes [id number] 50mg Take 1 U nivers 50 mg 6-14 tablet by ity of tablet 00:00: mouth at [place] [address] bedtime. Medical May cut Branch tablet in half. busPIRone 3-0 Yes [id number] 10mg Take 1 Un crist[facility]ian 10 mg 6-14 tablet by ity of tablet 00:00: mouth in [place] [address] the [facility] morning [place] and 1 tablet in the evening. DULoxetine 2023-0 Yes [id number] 60mg Take 1 U nivers 60 mg 6-14 capsule by ity of capsule 00:00: mouth in [place] 00 the Medical morning Branch and 1 capsule in the evening. lamoTRIgine 3-0 Yes [id number] 100mg Take 1 [facility] 100 mg 6-14 tablet by ity of tablet 00:00: mouth in [place] 00 the Medical morning Branch and 1 tablet in the evening. lithium 3-0 Yes [id number] 900mg Take 2 [facility] vers carbonate 6-14 tablets by ity of CR 450 mg 00:00: [place] tablet 00 bedtime. Medica l Branch traZODone 3-0 Yes [id number] 50mg Take 1 U nivers 50 mg 6-14 tablet by ity of tablet 00:00: mouth at [place] [address] bedtime. Medical May cut Branch tablet in half. busPIRone 3-0 Yes [id number] 10mg Take 1 Un crist[facility]ian 10 mg 6-14 tablet by ity of tablet 00:00: mouth in [place] 00 the Medical morning Branch and 1 tablet in the evening. DULoxetine 3-0 Yes [id number] 60mg Take 1 U nivers 60 mg 6-14 capsule by ity of capsule 00:00: mouth in [place] 00 the Medical morning Branch and 1 capsule in the evening. lamoTRIgine 3-0 Yes [id number] 100mg Take 1 [facility] 100 mg 6-14 tablet by ity of tablet 00:00: mouth in [place] 00 the Medical morning Branch and 1 tablet in the evening. lithium 3-0 Yes [id number] 900mg Take 2 [facility] vers carbonate 6-14 tablets by ity of CR 450 mg 00:00: [place] tablet 00 bedtime. Medica l Branch traZODone 3-0 Yes [id number] 50mg Take 1 U nivers 50 mg 6-14 tablet by ity of tablet 00:00: mouth at [place] [address] bedtime. Medical June cut Branch tablet in half. busPIRone 3-0 Yes [id number] 10mg Take 1 Un crist[facility]ian 10 mg 6-14 tablet by ity of tablet 00:00: mouth in [place] [address] the Medical morning Branch and 1 tablet in the evening. DULoxetine 2023-0 Yes [id number] 60mg Take 1 [facility] nivers 60 mg 6-14 capsule by ity of capsule 00:00: mouth in [place] 00 the Medical morning Branch and 1 capsule in the evening. lamoTRIgine 3-0 Yes [id number] 100mg Take 1 [facility] 100 mg 6-14 tablet by ity of tablet 00:00: mouth in [place] 00 the Medical morning Branch and 1 tablet in the evening. lithium 2023-0 Yes [id number] 900mg Take 2 [facility] vers carbonate 6-14 tablets by ity of CR 450 mg 00:00: [place] tablet 00 bedtime. Medica l Branch traZODone 3-0 Yes [id number] 50mg Take 1 U nivers 50 mg 6-14 tablet by ity of tablet 00:00: mouth at [place] [address] bedtime. June cut Branch tablet in half. busPIRone 3-0 Yes [id number] 10mg Take 1 Un crist[facility]ian 10 mg 6-14 tablet by ity of tablet 00:00: mouth in [place] [address] the Medical morning Branch and 1 tablet in the evening. DULoxetine 3-0 Yes [id number] 60mg Take 1 U nivers 60 mg 6-14 capsule by ity of capsule 00:00: mouth in [place] [address] the [facility] morning Branch and 1 capsule in the evening. lamoTRIgine 2022-0 Yes [id number] 100mg Take 1 [facility] 100 mg 6-14 tablet by ity of tablet 00:00: mouth in [place] [address] the Medical morning Branch and 1 tablet in the evening. lithium 3-0 Yes [id number] 900mg Take 2 [facility] vers carbonate 6-14 tablets by ity of CR 450 mg 00:00: [place] tablet 00 bedtime. Medica l Branch traZODone 3-0 Yes [id number] 50mg Take 1 U nivers 50 mg 6-14 tablet by ity of tablet 00:00: mouth at [place] 00 bedtime. June cut Branch tablet in half. busPIRone 3-0 Yes [id number] 10mg Take 1 Un crist[facility]ian 10 mg 6-14 tablet by ity of tablet 00:00: mouth in [place] [address] the Medical morning Branch and 1 tablet in the evening. DULoxetine 2023-0 Yes [id number] 60mg Take 1 U nivers 60 mg 6-14 capsule by ity of capsule 00:00: mouth in [place] [address] the Medical morning Branch and 1 capsule in the evening. lamoTRIgine 2022-0 Yes [id number] 100mg Take 1 [facility] 100 mg 6-14 tablet by ity of tablet 00:00: mouth in [place] 00 the Medical morning Branch and 1 tablet in the evening. lithium 2022-0 Yes [id number] 900mg Take 2 [facility] vers carbonate 6-14 tablets by ity of CR 450 mg 00:00: mouth at [facility] s SR tablet 00 bedtime. Medica l Branch traZODone 2022-0 Yes [id number] 50mg Take 1 U nivers 50 mg 6-14 tablet by ity of tablet 00:00: mouth at [place] 00 bedtime. Medical May cut Branch tablet in half. busPIRone 2022-0 Yes [id number] 10mg Take 1 Un crist[facility]ian 10 mg 6-14 tablet by ity of tablet 00:00: mouth in [place] 00 the Medical morning Branch and 1 tablet in the evening. DULoxetine 2022-0 Yes [id number] 60mg Take 1 U nivers 60 mg 6-14 capsule by ity of capsule 00:00: mouth in [place] 00 the Medical morning Branch and 1 capsule in the evening. traZODone 2022-0 Yes [id number] 50mg Take 1 U nivers 50 mg 6-14 tablet by ity of tablet 00:00: mouth at [place] [address] bedtime. Medical May cut Branch tablet in half. traZODone 2022-0 Yes [id number] 50mg Take 1 U nivers 50 mg 6-14 tablet by ity of tablet 00:00: mouth at [place] [address] bedtime. Medical May cut Branch tablet in half. traZODone 2022-0 Yes [id number] 50mg Take 1 U nivers 50 mg 6-14 tablet by ity of tablet 00:00: mouth at [place] [address] bedtime. Medical May cut Branch tablet in half. traZODone 2022-0 Yes [id number] 50mg Take 1 U nivers 50 mg 6-14 tablet by ity of tablet 00:00: mouth at [place] [address] bedtime. Medical May cut Branch tablet in half. traZODone 2022-0 Yes [id number] 50mg Take 1 U nivers 50 mg 6-14 tablet by ity of tablet 00:00: mouth at [place] [address] bedtime. Medical May cut Branch tablet in half. traZODone 2022-0 Yes [id number] 50mg Take 1 U nivers 50 mg 6-14 tablet by ity of tablet 00:00: mouth at [place] [address] bedtime. Medical May cut Branch tablet in half. traZODone 3-0 Yes [id number] 50mg Take 1 U nivers 50 mg 6-14 tablet by ity of tablet 00:00: mouth at [place] [address] bedtime. Medical May cut Branch tablet in half. traZODone 2022-0 Yes [id number] 50mg Take 1 U nivers 50 mg 6-14 tablet by ity of tablet 00:00: mouth at [place] [address] bedtime. Medical May cut Branch tablet in half. traZODone 2022-0 Yes [id number] 50mg Take 1 U nivers 50 mg 6-14 tablet by ity of tablet 00:00: mouth at [place] [address] bedtime. Medical May cut Branch tablet in half. traZODone 2022-0 Yes [id number] 50mg Take 1 U nivers 50 mg 6-14 tablet by ity of tablet 00:00: mouth at [place] [address] bedtime. Medical May cut Branch tablet in half. traZODone 2022-0 Yes [id number] 50mg Take 1 U nivers 50 mg 6-14 tablet by ity of tablet 00:00: mouth at [place] [address] bedtime. Medical May cut Branch tablet in half. traZODone 2022-0 Yes [id number] 50mg Take 1 U nivers 50 mg 6-14 tablet by ity of tablet 00:00: mouth at [place] [address] bedtime. Medical May cut Branch tablet in half. traZODone 2022-0 Yes [id number] 50mg Take 1 U nivers 50 mg 6-14 tablet by ity of tablet 00:00: mouth at [place] [address] bedtime. Medical May cut Branch tablet in half. traZODone 2022-0 Yes [id number] 50mg Take 1 U nivers 50 mg 6-14 tablet by ity of tablet 00:00: mouth at [place] [address] bedtime. Medical May cut Branch tablet in half. traZODone 3-0 Yes [id number] 50mg Take 1 U nivers 50 mg 6-14 tablet by ity of tablet 00:00: mouth at [place] [address] bedtime. Medical May cut Branch tablet in half. traZODone 2022-0 Yes [id number] 50mg Take 1 U nivers 50 mg 6-14 tablet by ity of tablet 00:00: mouth at [place] [address] bedtime. Medical May cut Branch tablet in half. traZODone 3-0 Yes [id number] 50mg Take 1 U nivers 50 mg 6-14 tablet by ity of tablet 00:00: mouth at [place] 00 bedtime. Medical May cut Branch tablet in half. traZODone 3-0 Yes [id number] 50mg Take 1 U nivers 50 mg 6-14 tablet by ity of tablet 00:00: mouth at [place] [address] bedtime. Medical May cut Branch tablet in half. traZODone 3-0 Yes [id number] 50mg Take 1 U nivers 50 mg 6-14 tablet by ity of tablet 00:00: mouth at [place] [address] bedtime. Medical May cut Branch tablet in half. traZODone 3-0 Yes [id number] 50mg Take 1 U nivers 50 mg 6-14 tablet by ity of tablet 00:00: mouth at [place] [address] bedtime. Medical May cut Branch tablet in half. DULoxetine 2022-2022- No [id number] 60mg Take 1 [facility] 60 mg 6-14 08-14 capsule by ity of capsule 00:00: 00:00 mouth in [place] 00 :00 the Medical morning Branch and 1 capsule in the evening. DULoxetine 2022-0 2022- No [id number] 60mg Take 1 [facility] 60 mg 6-14 08-14 capsule by ity of capsule 00:00: 00:00 mouth in [place] 00 :00 the Medical morning Branch and 1 capsule in the evening. DULoxetine 2022-0 2022- No [id number] 60mg Take 1 [facility] 60 mg 6-14 08-14 capsule by ity of capsule 00:00: 00:00 mouth in [place] 00 :00 the Medical morning Branch and 1 capsule in the evening. DULoxetine 2022-0 2022- No [id number] 60mg Take 1 [facility] 60 mg 6-14 08-14 capsule by ity of capsule 00:00: 00:00 mouth in [place] 00 :00 the Medical morning Branch and 1 capsule in the evening. DULoxetine 2022-0 2022- No [id number] 60mg Take 1 [facility] 60 mg 6-14 08-14 capsule by ity of capsule 00:00: 00:00 mouth in [place] 00 :00 the Medical morning Branch and 1 capsule in the evening. DULoxetine 3-0 3- No [id number] 60mg Take 1 [facility] 60 mg 6-14 08-14 capsule by ity of capsule 00:00: 00:00 mouth in [place] 00 :00 the Medical morning Branch and 1 capsule in the evening. DULoxetine 3-0 2022- No [id number] 60mg Take 1 [facility] 60 mg 6-14 08-14 capsule by ity of capsule 00:00: 00:00 mouth in [place] 00 :00 the Medical morning Branch and 1 capsule in the evening. lamoTRIgine 2022-0 3- No [id number] 100mg Take 1 [facility] 100 mg 6-14 08-02 tablet by ity of tablet 00:00: 00:00 mouth in [place] 00 :00 the Medical morning Branch and 1 tablet in the evening. lithium 2022-0 2022- No [id number] 900mg Take 2 Un cristhian carbonate 6-14 08-02 tablets by ity of CR 450 mg 00:00: 00:00 mouth at [place] tablet 00 :00 bedtime. Medica l Branch busPIRone 2022-0 2022- No [id number] 10mg Take 1 U nivers 10 mg 6-14 08-02 tablet by ity of tablet 00:00: 00:00 mouth in [place] 00 :00 the Medical morning Branch and 1 tablet in the evening. lamoTRIgine 2022-0 2022- No [id number] 100mg Take 1 [facility] 100 mg 6-14 08-02 tablet by ity of tablet 00:00: 00:00 mouth in [place] 00 :00 the Medical morning Branch and 1 tablet in the evening. lithium 3-0 2022- No [id number] 900mg Take 2 Un crist[facility]ian carbonate 6-14 08-02 tablets by ity of CR 450 mg 00:00: 00:00 mouth at [place] tablet 00 :00 bedtime. Medica l Branch busPIRone 2022-0 2022- No [id number] 10mg Take 1 U nivers 10 mg 6-14 08-02 tablet by ity of tablet 00:00: 00:00 mouth in [place] 00 :00 the Medical morning Branch and 1 tablet in the evening. lamoTRIgine 2023-0 3- No [id number] 100mg Take 1 [facility] 100 mg 6-14 08-02 tablet by ity of tablet 00:00: 00:00 mouth in [place] 00 :00 the Medical morning Branch and 1 tablet in the evening. lithium 2022-0 2022- No [id number] 900mg Take 2 Un crist[facility]ian carbonate 6-14 08-02 tablets by ity of CR 450 mg 00:00: 00:00 mouth at [place] tablet 00 :00 bedtime. Medica l Branch busPIRone 2022-2022- No [id number] 10mg Take 1 U nivers 10 mg 6-14 08-02 tablet by ity of tablet 00:00: 00:00 mouth in [place] 00 :00 the Medical morning Branch and 1 tablet in the evening. lamoTRIgine 2022-0 2022- No [id number] 100mg Take 1 [facility] 100 mg 6-14 08-02 tablet by ity of tablet 00:00: 00:00 mouth in [place] 00 :00 the Medical morning Branch and 1 tablet in the evening. lithium 2022-0 2022- No [id number] 900mg Take 2 Un cr[facility] carbonate 6-14 08-02 tablets by ity of CR 450 mg 00:00: 00:00 mouth at [place] tablet 00 :00 bedtime. Medica l Branch busPIRone 2022-2022- No [id number] 10mg Take 1 U nivers 10 mg 6-14 08-02 tablet by ity of tablet 00:00: 00:00 mouth in [place] 00 :00 the Medical morning Branch and 1 tablet in the evening. lamoTRIgine 2022-0 2022- No [id number] 100mg Take 1 [facility] 100 mg 6-14 08-02 tablet by ity of tablet 00:00: 00:00 mouth in [place] 00 :00 the Medical morning Branch and 1 tablet in the evening. lithium 2022-0 2022- No [id number] 900mg Take 2 Un [facility] carbonate 6-14 08-02 tablets by ity of CR 450 mg 00:00: 00:00 mouth at [place] tablet 00 :00 bedtime. Medica l Branch busPIRone 2022-0 2022- No [id number] 10mg Take 1 U nivers 10 mg 6-14 08-02 tablet by ity of tablet 00:00: 00:00 mouth in [place] 00 :00 the Medical morning Branch and 1 tablet in the evening. lamoTRIgine 2023-0 3- No [id number] 100mg Take 1 [facility] 100 mg 6-25 09- tablet by ity of tablet 00:00: 00:00 mouth in [place] 00 :00 the Medical morning Branch and 1 tablet in the evening. lithium 3-0 3- No [id number] 900mg Take 2 Un crist[facility]ian carbonate -25 09- tablets by ity of CR 450 mg 00:00: 00:00 mouth at [facility] as SR tablet 00 :00 bedtime. Medica l Branch busPIRone 2022-0 3- No [id number] 10mg Take 1 U nivers 10 mg -09-13 tablet by ity of tablet 00:00: 00:00 mouth in [place] 00 :00 the Medical morning Branch and 1 tablet in the evening. lamoTRIgine 2023-0 Yes [id number] 100mg Take 1 [facility] 100 mg 6-07 tablet by ity of tablet 00:00: mouth in [place] 00 the Medical morning [place] and 1 tablet in the evening. lamoTRIgine 2023-0 Yes [id number] 100mg Take 1 [facility] 100 mg 6-07 tablet by ity of tablet 00:00: mouth in [place] 00 the Medical morning Branch and 1 tablet in the evening. lamoTRIgine 2023-0 3- No [id number] 100mg Take 1 [facility] 100 mg 6-07 -14 tablet by ity of tablet 00:00: 00:00 mouth in [place] 00 :00 the Medical morning Branch and 1 tablet in the evening. lamoTRIgine 2023-0 3- No [id number] 100mg Take 1 [facility] 100 mg 6-07 -14 tablet by ity of tablet 00:00: 00:00 mouth in [place] 00 :00 the Medical morning Branch and 1 tablet in the evening. lamoTRIgine 2023-0 3- No [id number] 100mg Take 1 [facility] 100 mg 6-07 06-14 tablet by ity of tablet 00:00: 00:00 mouth in [place] 00 :00 the Medical morning Branch and 1 tablet in the evening. lamoTRIgine 2023-0 2023- No [id number] 100mg Take 1 [facility] 100 mg 6-07 06-14 tablet by ity of tablet 00:00: 00:00 mouth in [place] 00 :00 the Medical morning Branch and 1 tablet in the evening. clonazePAM 2023-0 Yes [id number] Take 1 U nivers 1 mg tablet 5-24 tablet by ity of 00:00: mouth [place] 00 twice Medical daily as Branch needed for anxiety. clonazePAM 2023-0 Yes [id number] Take 1 U nivers 1 mg tablet 5-24 tablet by ity of 00:00: mouth [place] 00 twice Medical daily as Branch needed for anxiety. clonazePAM 2023-0 Yes [id number] Take 1 U nivers 1 mg tablet 5-24 tablet by ity of 00:00: mouth [place] 00 twice Medical daily as Branch needed for anxiety. clonazePAM 2023-0 Yes [id number] Take 1 U nivers 1 mg tablet 5-24 tablet by ity of 00:00: mouth [place] 00 twice Medical daily as Branch needed for anxiety. clonazePAM 2023-0 Yes [id number] Take 1 U nivers 1 mg tablet 5-24 tablet by ity of 00:00: mouth [place] 00 twice Medical daily as Branch needed for anxiety. clonazePAM 2023-0 Yes [id number] Take 1 U nivers 1 mg tablet 5-24 tablet by ity of 00:00: mouth [place] 00 twice Medical daily as Branch needed for anxiety. clonazePAM 3-0 Yes [id number] Take 1 U nivers 1 mg tablet 5-24 tablet by ity of 00:00: mouth [place] 00 twice Medical daily as Branch needed for anxiety. clonazePAM 3-0 Yes [id number] Take 1 U nivers 1 mg tablet 5-24 tablet by ity of 00:00: mouth [place] 00 twice Medical daily as Branch needed for anxiety. clonazePAM 2023-0 2023- No [id number] Take 1 [facility] 1 mg tablet 5-24 -18 tablet by it y of 00:00: 00:00 mouth [place] 00 :00 twice Medical daily as Branch needed for anxiety. clonazePAM 2023-0 2023- No [id number] Take 1 [facility] 1 mg tablet 5-24 -18 tablet by it y of 00:00: 00:00 mouth [place] 00 :00 twice Medical daily as Branch needed for anxiety. clonazePAM 2023-0 2023- No [id number] Take 1 [facility] 1 mg tablet 5-24 -18 tablet by it y of 00:00: 00:00 mouth [place] 00 :00 twice Medical daily as Branch needed for anxiety. clonazePAM 2023-0 3- No [id number] Take 1 [facility] 1 mg tablet 07-05-18 tablet by it y of 00:00: 00:00 mouth [place] 00 :00 twice Medical daily as Branch needed for anxiety. clonazePAM 2022- No [id number] Take 1 [facility] 1 mg tablet 07-05-18 tablet by it y of 00:00: 00:00 mouth [place] 00 :00 twice Medical daily as Branch needed for anxiety. clonazePAM 2022- No [id number] Take 1 [facility] 1 mg tablet 07-05-18 tablet by it y of 00:00: 00:00 mouth [place] 00 :00 twice Medical daily as Branch needed for anxiety. clonazePAM 2022-2022- No [id number] Take 1 [facility] 1 mg tablet 07-05-18 tablet by it y of 00:00: 00:00 mouth [place] 00 :00 twice Medical daily as Branch needed for anxiety. DULoxetine 2022-0 Yes [id number] 60mg Take 1 U nivers 60 mg 5-09 capsule by ity of capsule 00:00: mouth in [place] the Medical morning Branch and 1 capsule in the evening. lithium 3-0 Yes [id number] 900mg Take 2 [facility] vers carbonate 5-09 tablets by [facility]y of CR 450 mg 00:00: mouth [place] tablet 00 bedtime. Medica l Branch DULoxetine 2022-0 Yes [id number] 60mg Take 1 U nivers 60 mg 5-09 capsule by ity of capsule 00:00: mouth in [place] [address] the Medical morning Branch and 1 capsule in the evening. lithium 3-0 Yes [id number] 900mg Take 2 [facility] vers carbonate 5-09 tablets by ity of CR 450 mg 00:00: mouth [place] tablet 00 bedtime. Medica l Branch DULoxetine 3-0 Yes [id number] 60mg Take 1 U nivers 60 mg 5-09 capsule by ity of capsule 00:00: mouth in [place] [address] the Medical morning Branch and 1 capsule in the evening. lithium 2023-0 Yes [id number] 900mg Take 2 [facility] vers carbonate 5-09 tablets by ity of CR 450 mg 00:00: mouth [place] tablet 00 bedtime. Medica l Branch DULoxetine 3-0 Yes [id number] 60mg Take 1 U nivers 60 mg 5-09 capsule by ity of capsule 00:00: mouth in [place] 00 the Medical morning Branch and 1 capsule in the evening. lithium 2022-0 Yes [id number] 900mg Take 2 [facility] vers carbonate 5-09 tablets by [facility]y of CR 450 mg 00:00: mouth [place] tablet 00 bedtime. Medica l Branch DULoxetine 2022-0 Yes [id number] 60mg Take 1 U nivers 60 mg 5-09 capsule by ity of capsule 00:00: mouth in [place] 00 the Medical morning Branch and 1 capsule in the evening. lithium 2022-0 Yes [id number] 900mg Take 2 [facility] vers carbonate 5-09 tablets by [facility]y of CR 450 mg 00:00: [place] [facility] D[facility]- No [id number] 60mg Take 1 [facility] 60 mg -10 18-14 capsule by ity of capsule 00:00: 00:00 mouth in [place] 00 :00 the Medical morning Branch and 1 capsule in the evening. lithium 2022-0 2022- No [id number] 900mg Take 2 Un [facility] carbonate -10 18-14 tablets by ity of CR 450 mg 00:00: 00:00 mouth at [place] tablet 00 :00 [facility]time. [facility] DULox[facility]-0 2022- No [id number] 60mg Take 1 [facility] 60 mg -10 18-14 capsule by ity of capsule 00:00: 00:00 mouth in [place] 00 :00 the Medical morning Branch and 1 capsule in the evening. lithium 2022-0 2022- No [id number] 900mg Take 2 Un [facility] carbonate 5-10 18-14 tablets by ity of CR 450 mg 00:00: 00:00 mouth at [place] tablet 00 :00 [facility]time. [facility] DULox[facility] 2022- No [id number] 60mg Take 1 [facility] 60 mg 5-10 18-14 capsule by ity of capsule 00:00: 00:00 mouth in [place] 00 :00 the Medical morning Branch and 1 capsule in the evening. lithium 2022-0 2022- No [id number] 900mg Take 2 Un [facility] carbonate 5-10 18-14 tablets by ity of CR 450 mg 00:00: 00:00 mouth at [place] tablet 00 :00 bedtime. Medica l Branch DULoxetine 2022-0 3- No [id number] 60mg Take 1 [facility] 60 mg 5-10 18-14 capsule by ity of capsule 00:00: 00:00 mouth in [place] 00 :00 the Medical morning Branch and 1 capsule in the evening. lithium 2022-0 2022- No [id number] 900mg Take 2 Un [facility] carbonate 5-10 18-14 tablets by ity of CR 450 mg 00:00: 00:00 mouth at [place] tablet 00 :00 bedtime. Medica l Branch DULoxetine 2022-0 Yes [id number] 60mg Take 1 U nivers 60 mg 3-09 capsule by ity of capsule 00:00: mouth in [place] 00 the Medical morning Branch and 1 capsule in the evening. clonazePAM 2022-0 Yes [id number] Take 1 U nivers 1 mg tablet 3-09 tablet by ity of 00:00: mouth [place] 00 twice Medical daily as Branch needed for anxiety. lamoTRIgine 2022-0 Yes [id number] 100mg Take 1 [facility] 100 mg 3-09 tablet by ity of tablet 00:00: mouth in [place] 00 the Medical morning Branch and 1 tablet in the evening. traZODone 2022-0 Yes [id number] 50mg Take 1 U nivers 50 mg 3-09 tablet by ity of tablet 00:00: mouth at [place] 00 bedtime. [facility] cut Branch tablet in half. lithium 2022-0 Yes [id number] 900mg Take 2 Uni vers carbonate 3-09 tablets by ity of CR 450 mg 00:00: [facility] bed[facility]. Medica l Branch DULoxetine 2022-0 Yes [id number] 60mg Take 1 U nivers 60 mg 3-09 capsule by ity of capsule 00:00: mouth in [place] 00 the Medical morning Branch and 1 capsule in the evening. clonazePAM 3-0 Yes [id number] Take 1 U nivers 1 mg tablet 3-09 tablet by ity of 00:00: mouth [place] 00 twice Medical daily as Branch needed for anxiety. lamoTRIgine 2022-0 Yes [id number] 100mg Take 1 [facility] 100 mg 3-09 tablet by ity of tablet 00:00: mouth in [place] 00 the Medical morning Branch and 1 tablet in the evening. traZODone 3-0 Yes [id number] 50mg Take 1 U nivers 50 mg 3-09 tablet by ity of tablet 00:00: mouth at [place] 00 bedtime. Medical [facility] cut Branch tablet in half. lithium 3-0 Yes [id number] 900mg Take 2 [facility] vers carbonate 3-09 tablets by ity of CR 450 mg 00:00: [facility] bed[facility]. Medica l Branch clonazePAM 3-0 Yes [id number] Take 1 U nivers 1 mg tablet 3-09 tablet by ity of 00:00: mouth [place] 00 twice Medical daily as Branch needed for anxiety. lamoTRIgine 2022-0 Yes [id number] 100mg Take 1 [facility] 100 mg 3-09 tablet by ity of tablet 00:00: mouth in [place] 00 the Medical morning Branch and 1 tablet in the evening. traZODone 2022-0 Yes [id number] 50mg Take 1 U nivers 50 mg 3-09 tablet by ity of tablet 00:00: mouth at [place] 00 bedtime. Medical May cut Branch tablet in half. clonazePAM 2022-0 Yes [id number] Take 1 U nivers 1 mg tablet 3-09 tablet by ity of 00:00: mouth [place] 00 twice Medical daily as Branch needed for anxiety. lamoTRIgine 3-0 Yes [id number] 100mg Take 1 [facility] 100 mg 3-09 tablet by ity of tablet 00:00: mouth in [place] 00 the Medical morning Branch and 1 tablet in the evening. traZODone 3-0 Yes [id number] 50mg Take 1 U nivers 50 mg 3-09 tablet by ity of tablet 00:00: mouth at [place] [address] bedtime. Medical May cut Branch tablet in half. lamoTRIgine 3-0 Yes [id number] 100mg Take 1 [facility] 100 mg 3-09 tablet by ity of tablet 00:00: mouth in [place] 00 the Medical morning Branch and 1 tablet in the evening. traZODone 2023-0 Yes [id number] 50mg Take 1 U nivers 50 mg 3-09 tablet by ity of tablet 00:00: mouth at [place] 00 bedtime. Medical May cut Branch tablet in half. traZODone 2023-0 Yes [id number] 50mg Take 1 U nivers 50 mg 3-09 tablet by ity of tablet 00:00: mouth at [place] [address] bedtime. Medical May cut Branch tablet in half. traZODone 2022-0 Yes [id number] 50mg Take 1 U nivers 50 mg 3-09 tablet by ity of tablet 00:00: mouth at [place] 00 bedtime. Medical May cut Branch tablet in half. traZODone 2022-0 3- No [id number] 50mg Take 1 [facility] 50 mg 3-10 18-14 tablet by ity of tablet 00:00: 00:00 mouth at [place] 00 :00 bedtime. Medical May cut Branch tablet in half. traZODone 2022-0 3- No [id number] 50mg Take 1 [facility] 50 mg 3-10 18- tablet by ity of tablet 00:00: 00:00 mouth at [place] 00 :00 bedtime. Medical May cut Branch tablet in half. traZODone 2022-0 3- No [id number] 50mg Take 1 [facility] 50 mg -10 18- tablet by ity of tablet 00:00: 00:00 mouth at [place] 00 :00 bedtime. Medical May cut Branch tablet in half. traZODone 2022-0 3- No [id number] 50mg Take 1 [facility] 50 mg -10 18- tablet by ity of tablet 00:00: 00:00 mouth at [place] 00 :00 bedtime. Medical May cut Branch tablet in half. lamoTRIgine 3-0 3- No [id number] 100mg Take 1 [facility] 100 mg 3-10 18- tablet by ity of tablet 00:00: 00:00 mouth in [place] 00 :00 the Medical morning Branch and 1 tablet in the evening. lamoTRIgine 3-0 3- No [id number] 100mg Take 1 [facility] 100 mg -10 18- tablet by ity of tablet 00:00: 00:00 mouth in [place] 00 :00 the Medical morning Branch and 1 tablet in the evening. lamoTRIgine 2023-0 3- No [id number] 100mg Take 1 [facility] 100 mg 3- tablet by ity of tablet 00:00: 00:00 mouth in [place] 00 :00 the Medical morning Branch and 1 tablet in the evening. lamoTRIgine 2023-0 3- No [id number] 100mg Take 1 [facility] 100 mg -10 18- tablet by ity of tablet 00:00: 00:00 mouth in [place] 00 :00 the Medical morning Branch and 1 tablet in the evening. clonazePAM 2022-0 2022- No [id number] Take 1 [facility] 1 mg tablet 04-2024 tablet by it y of 00:00: 00:00 mouth [place] 00 :00 twice Medical daily as Branch needed for anxiety. clonazePAM 2022-2022- No [id number] Take 1 [facility] 1 mg tablet 04-2024 tablet by it y of 00:00: 00:00 mouth [place] 00 :00 twice Medical daily as Branch needed for anxiety. clonazePAM 2022-2022- No [id number] Take 1 [facility] 1 mg tablet 04-20 tablet by it y of 00:00: 00:00 mouth [place] 00 :00 twice Medical daily as Branch needed for anxiety. clonazePAM 2022-2022- No [id number] Take 1 [facility] 1 mg tablet 04-20 tablet by it y of 00:00: 00:00 mouth [place] 00 :00 twice Medical daily as Branch needed for anxiety. clonazePAM 2022-2022- No [id number] Take 1 [facility] 1 mg tablet 04-20 tablet by it y of 00:00: 00:00 mouth [place] 00 :00 twice Medical daily as Branch needed for anxiety. DULoxetine 2022-0 2022- No [id number] 60mg Take 1 [facility] 60 mg -10 17-06 capsule by ity of capsule 00:00: 00:00 mouth in [place] 00 :00 the Medical morning Branch and 1 capsule in the evening. lithium 2022-0 2022- No [id number] 900mg Take 2 Un cristhian carbonate 3- 05-06 tablets by ity of CR 450 mg 00:00: 00:00 mouth at [place] as SR tablet 00 :00 bedtime. Medica l Branch DULoxetine 2022-0 2022- No [id number] 60mg Take 1 [facility] 60 mg 3- 05-06 capsule by ity of capsule 00:00: 00:00 mouth in [place] 00 :00 the Medical morning Branch and 1 capsule in the evening. lithium 2022-0 2022- No [id number] 900mg Take 2 Un cristhian carbonate 3- 05-06 tablets by ity of CR 450 mg 00:00: 00:00 mouth at [place] as SR tablet 00 :00 bedtime. Medica l Branch DULoxetine 2023-0 3- No [id number] 60mg Take 1 [facility] 60 mg 3-10 17-06 capsule by ity of capsule 00:00: 00:00 mouth in [place] 00 :00 the Medical morning Branch and 1 capsule in the evening. lithium 3-0 3- No [id number] 900mg Take 2 Un cristhian carbonate 3-10 17-06 tablets by ity of CR 450 mg 00:00: 00:00 mouth at [facility] as SR tablet 00 :00 bedtime. Medica l Branch lamoTRIgine 2023-0 Yes [id number] 100mg Take 1 [facility] 100 mg 1-26 tablet by ity of tablet 00:00: mouth in [place] 00 the Medical morning Branch and 1 tablet in the evening. lamoTRIgine 2023-0 Yes [id number] 100mg Take 1 [facility] 100 mg 1-26 tablet by ity of tablet 00:00: mouth in [place] 00 the Medical morning Branch and 1 tablet in the evening. lamoTRIgine 2023-0 Yes [id number] 100mg Take 1 [facility] 100 mg 1-26 tablet by ity of tablet 00:00: mouth in [place] 00 the Medical morning Branch and 1 tablet in the evening. lamoTRIgine 2023-0 Yes [id number] 100mg Take 1 [facility] 100 mg 1-26 tablet by ity of tablet 00:00: mouth in [place] 00 the Medical morning Branch and 1 tablet in the evening. lamoTRIgine 2023-0 3- No [id number] 100mg Take 1 [facility] 100 mg 1-26 03-09 tablet by ity of tablet 00:00: 00:00 mouth in [place] 00 :00 the Medical morning Branch and 1 tablet in the evening. lamoTRIgine 2023-0 2023- No [id number] 100mg Take 1 [facility] 100 mg 1-26 03-09 tablet by ity of tablet 00:00: 00:00 mouth in [place] 00 :00 the Medical morning Branch and 1 tablet in the evening. DULoxetine 2023-0 Yes [id number] 60mg Take 1 U nivers 60 mg 1-04 capsule by ity of capsule 00:00: mouth in [place] 00 the Medical morning Branch and 1 capsule in the evening. lamoTRIgine 2023-0 Yes [id number] 100mg Take 1 [facility] 100 mg 1-04 tablet by ity of tablet 00:00: mouth in [place] 00 the Medical morning Branch and 1 tablet in the evening. traZODone 2023-0 Yes [id number] 50mg Take 1 U nivers 50 mg 1-04 tablet by ity of tablet 00:00: mouth at [place] [address] bedtime. Medical May cut Branch tablet in half. clonazePAM 2023-0 Yes [id number] Take 1 U nivers 1 mg tablet 1-04 tablet by ity of 00:00: mouth [place] 00 twice Medical daily as Branch needed for anxiety. lithium 600 3-0 Yes [id number] 600mg Take 1 [facility] mg capsule 1-04 capsule by ity of 00:00: mouth in [place] 00 the Medical morning Branch and 1 capsule in the evening. DULoxetine 3-0 Yes [id number] 60mg Take 1 U nivers 60 mg 1-04 capsule by ity of capsule 00:00: mouth in [place] [address] the [facility] morning Branch and 1 capsule in the evening. lamoTRIgine 3-0 Yes [id number] 100mg Take 1 [facility] 100 mg 1-04 tablet by ity of tablet 00:00: mouth in [place] [address] the [facility] morning [place] and 1 tablet in the evening. traZODone 3-0 Yes [id number] 50mg Take 1 U nivers 50 mg 1-04 tablet by ity of tablet 00:00: mouth at [place] [address] bedtime. Medical [facility] cut Branch tablet in half. clonazePAM 3-0 Yes [id number] Take 1 U nivers 1 mg tablet 1-04 tablet by ity of 00:00: mouth [place] [address] twice Medical daily as Branch needed for anxiety. lithium 3-0 Yes [id number] 900mg Take 2 Uni vers carbonate 1-04 tablets by ity of CR 450 mg 00:00: mouth at [facility] s SR tablet 00 bedtime. Medica l Branch DULoxetine 2023-0 Yes [id number] 60mg Take 1 U nivers 60 mg 1-04 capsule by ity of capsule 00:00: mouth in [place] [address] the [facility] morning Branch and 1 capsule in the evening. lamoTRIgine 2023-0 Yes [id number] 100mg Take 1 [facility] 100 mg 1-04 tablet by ity of tablet 00:00: mouth in [place] [address] the [facility] morning Branch and 1 tablet in the evening. traZODone 2023-0 Yes [id number] 50mg Take 1 U nivers 50 mg 1-04 tablet by ity of tablet 00:00: mouth at [place] 00 bedtime. Medical May cut Branch tablet in half. clonazePAM 3-0 Yes [id number] Take 1 U nivers 1 mg tablet 1-04 tablet by ity of 00:00: mouth [place] 00 twice Medical daily as Branch needed for anxiety. lithium 3-0 Yes [id number] 900mg Take 2 [facility] vers carbonate 1-04 tablets by ity of CR 450 mg 00:00: mouth [place] SR tablet 00 bedtime. Medica l Branch DULoxetine 3-0 Yes [id number] 60mg Take 1 U nivers 60 mg 1-04 capsule by ity of capsule 00:00: mouth in [place] 00 the Medical morning Branch and 1 capsule in the evening. lamoTRIgine 3-0 Yes [id number] 100mg Take 1 [facility] 100 mg 1-04 tablet by ity of tablet 00:00: mouth in [place] 00 the Medical morning Branch and 1 tablet in the evening. traZODone 3-0 Yes [id number] 50mg Take 1 U nivers 50 mg 1-04 tablet by ity of tablet 00:00: mouth at [place] 00 bedtime. Medical May cut Branch tablet in half. clonazePAM 3-0 Yes [id number] Take 1 U nivers 1 mg tablet 1-04 tablet by ity of 00:00: mouth [place] 00 twice Medical daily as Branch needed for anxiety. lithium 3-0 Yes [id number] 900mg Take 2 [facility] vers carbonate 1-04 tablets by ity of CR 450 mg 00:00: mouth [place] SR tablet 00 bedtime. Medica l Branch DULoxetine 3-0 Yes [id number] 60mg Take 1 U nivers 60 mg 1-04 capsule by ity of capsule 00:00: mouth in [place] 00 the Medical morning Branch and 1 capsule in the evening. lamoTRIgine 3-0 Yes [id number] 100mg Take 1 [facility] 100 mg 1-04 tablet by ity of tablet 00:00: mouth in [place] 00 the Medical morning Branch and 1 tablet in the evening. traZODone 2023-0 Yes [id number] 50mg Take 1 U nivers 50 mg 1-04 tablet by ity of tablet 00:00: mouth at [place] 00 bedtime. Medical May cut Branch tablet in half. clonazePAM 3-0 Yes [id number] Take 1 U nivers 1 mg tablet 1-04 tablet by ity of 00:00: mouth [place] 00 twice Medical daily as Branch needed for anxiety. lithium 2022-0 Yes [id number] 900mg Take 2 [facility] vers carbonate 1-04 tablets by ity of CR 450 mg 00:00: mouth [place] SR tablet 00 bedtime. Medica l Branch DULoxetine 2022-0 Yes [id number] 60mg Take 1 U nivers 60 mg 1-04 capsule by ity of capsule 00:00: mouth in [place] 00 the Medical morning Branch and 1 capsule in the evening. lamoTRIgine 2022-0 Yes [id number] 100mg Take 1 [facility] 100 mg 1-04 tablet by ity of tablet 00:00: mouth in [place] 00 the Medical morning Branch and 1 tablet in the evening. traZODone 2022-0 Yes [id number] 50mg Take 1 U nivers 50 mg 1-04 tablet by ity of tablet 00:00: mouth at [place] 00 bedtime. Medical May cut Branch tablet in half. clonazePAM 2022-0 Yes [id number] Take 1 U nivers 1 mg tablet 1-04 tablet by ity of 00:00: mouth [place] 00 twice Medical daily as Branch needed for anxiety. lithium 2022-0 Yes [id number] 900mg Take 2 Uni vers carbonate 1-04 tablets by ity of CR 450 mg 00:00: mouth [place] SR tablet 00 bedtime. Medica l Branch DULoxetine 2022-0 Yes [id number] 60mg Take 1 U nivers 60 mg 1-04 capsule by ity of capsule 00:00: mouth in [place] 00 the Medical morning Branch and 1 capsule in the evening. traZODone 2022-0 Yes [id number] 50mg Take 1 U nivers 50 mg 1-04 tablet by ity of tablet 00:00: mouth at [place] 00 bedtime. Medical May cut Branch tablet in half. clonazePAM 2022-0 Yes [id number] Take 1 U nivers 1 mg tablet 1-04 tablet by ity of 00:00: mouth [place] 00 twice Medical daily as Branch needed for anxiety. lithium 2022-0 Yes [id number] 900mg Take 2 Uni vers carbonate 1-04 tablets by ity of CR 450 mg 00:00: mouth [place] SR tablet 00 bedtime. Medica l Branch DULoxetine 2022-0 Yes [id number] 60mg Take 1 U nivers 60 mg 1-04 capsule by ity of capsule 00:00: mouth in [place] 00 the Medical morning Branch and 1 capsule in the evening. traZODone 2022-0 Yes [id number] 50mg Take 1 U nivers 50 mg 1-04 tablet by ity of tablet 00:00: mouth at [place] 00 bedtime. Medical May cut Branch tablet in half. clonazePAM 2022-0 Yes [id number] Take 1 U nivers 1 mg tablet 1-04 tablet by ity of 00:00: mouth [place] 00 twice Medical daily as Branch needed for anxiety. lithium 2022-0 Yes [id number] 900mg Take 2 Uni vers carbonate 1-04 tablets by ity of CR 450 mg 00:00: mouth at [place] SR tablet 00 bedtime. Medica l Branch DULoxetine 2022-0 Yes [id number] 60mg Take 1 U nivers 60 mg 1-04 capsule by ity of capsule 00:00: mouth in [place] 00 the Medical morning Branch and 1 capsule in the evening. traZODone 2022-0 Yes [id number] 50mg Take 1 U nivers 50 mg 1-04 tablet by ity of tablet 00:00: mouth at [place] 00 bedtime. Medical May cut Branch tablet in half. clonazePAM 2022-0 Yes [id number] Take 1 U nivers 1 mg tablet 1-04 tablet by ity of 00:00: mouth [place] 00 twice Medical daily as Branch needed for anxiety. lithium 2022-0 Yes [id number] 900mg Take 2 [facility] vers carbonate 1-04 tablets by ity of CR 450 mg 00:00: mouth [place] SR tablet 00 bedtime. Medica l Branch DULoxetine 2022-0 Yes [id number] 60mg Take 1 U nivers 60 mg 1-04 capsule by ity of capsule 00:00: mouth in [place] 00 the Medical morning Branch and 1 capsule in the evening. traZODone 2022-0 Yes [id number] 50mg Take 1 U nivers 50 mg 1-04 tablet by ity of tablet 00:00: mouth at [place] 00 bedtime. Medical May cut Branch tablet in half. clonazePAM 2022-0 Yes [id number] Take 1 U nivers 1 mg tablet 1-04 tablet by ity of 00:00: mouth [place] 00 twice Medical daily as Branch needed for anxiety. lithium Yes [id number] 900mg Take 2 [facility] vers carbonate 1-04 tablets by ity of CR 450 mg 00:00: mouth [place] SR tablet 00 bedtime. Medica l Branch traZODone 2022- No [id number] 50mg Take 1 [facility] 50 mg 02-15-09 tablet by ity of tablet 00:00: 00:00 mouth at [place] 00 :00 bedtime. Medical May cut Branch tablet in half. lithium 2022-0 2022- No [id number] 900mg Take 2 Un cristhian carbonate -05 15- tablets by ity of CR 450 mg 00:00: 00:00 mouth at [place] as SR tablet 00 :00 bedtime. Medica l Branch traZODone 2022- No [id number] 50mg Take 1 [facility] 50 mg 02-15- tablet by ity of tablet 00:00: 00:00 mouth at [place] 00 :00 bedtime. Medical May cut Branch tablet in half. lithium 0 2022- No [id number] 900mg Take 2 Un cristhian carbonate 02-15- tablets by ity of CR 450 mg 00:00: 00:00 mouth at [place] as SR tablet 00 :00 bedtime. Medica l Branch DULoxetine 2022- No [id number] 60mg Take 1 [facility] 60 mg 02-15- capsule by ity of capsule 00:00: 00:00 mouth in [place] 00 :00 the Medical morning Branch and 1 capsule in the evening. clonazePAM 0 2022- No [id number] Take 1 [facility] 1 mg tablet 02-15 tablet by it y of 00:00: 00:00 mouth [place] 00 :00 twice Medical daily as Branch needed for anxiety. DULoxetine 2022- No [id number] 60mg Take 1 [facility] 60 mg 02-15-08 capsule by ity of capsule 00:00: 00:00 mouth in [place] 00 :00 the Medical morning Branch and 1 capsule in the evening. clonazePAM 2022-2022- No [id number] Take 1 [facility] 1 mg tablet 02-15-08 tablet by it y of 00:00: 00:00 mouth [place] 00 :00 twice Medical daily as Branch needed for anxiety. lamoTRIgine 2023- No [id number] 100mg Take 1 [facility] 100 mg -03-09 tablet by ity of tablet 00:00: 00:00 mouth in [place] 00 :00 the Medical morning Branch and 1 tablet in the evening. lamoTRIgine 2023-0 2023- No [id number] 100mg Take 1 [facility] 100 mg -03-09 tablet by ity of tablet 00:00: 00:00 mouth in [place] 00 :00 the Medical morning Branch and 1 tablet in the evening. lamoTRIgine 2023-0 2023- No [id number] 100mg Take 1 [facility] 100 mg -03-09 tablet by ity of tablet 00:00: 00:00 mouth in [place] 00 :00 the Medical morning Branch and 1 tablet in the evening. lamoTRIgine 2023-0 2023- No [id number] 100mg Take 1 [facility] 100 mg -03-09 tablet by ity of tablet 00:00: 00:00 mouth in [place] 00 :00 the Medical morning Branch and 1 tablet in the evening. lithium 600 2023-0 2023- No [id number] 600mg Take 1 [facility] mg capsule -02-15 capsule by it y of 00:00: 00:00 mouth in [place] 00 :00 the Medical morning Branch and 1 capsule in the evening. lithium 600 2023-0 2023- No [id number] 600mg Take 1 [facility] mg capsule -05 13- capsule by it y of 00:00: 00:00 mouth in [place] 00 :00 the Medical morning Branch and 1 capsule in the evening. lithium 600 2023-0 2023- No [id number] 600mg Take 1 [facility] mg capsule -05 13- capsule by it y of 00:00: 00:00 mouth in [place] 00 :00 the Medical morning Branch and 1 capsule in the evening. lithium 600 2023-0 2023- No [id number] 600mg Take 1 [facility] mg capsule -05 13- capsule by it y of 00:00: 00:00 mouth in [place] 00 :00 the Medical morning Branch and 1 capsule in the evening. lithium 600 2023-0 2023- No [id number] 600mg Take 1 [facility] mg capsule -05 13- capsule by it y of 00:00: 00:00 mouth in [place] 00 :00 the Medical morning Branch and 1 capsule in the evening. lithium 600 2022-0 2022- No [id number] 600mg Take 1 [facility] mg capsule 02-15- capsule by it y of 00:00: 00:00 mouth in [place] 00 :00 the Medical morning Branch and 1 capsule in the evening. lithium 600 0 2022- No [id number] 600mg Take 1 [facility] mg capsule 02-15 capsule by it y of 00:00: 00:00 mouth in [place] 00 :00 the Medical morning Branch and 1 capsule in the evening. lithium 600 0 2022- No [id number] 600mg Take 1 [facility] mg capsule 02-15 capsule by it y of 00:00: 00:00 mouth in [place] 00 :00 the Medical morning Branch and 1 capsule in the evening. DULoxetine 2021-02 Yes [id number] 60mg Take 1 U nivers 60 mg 2-28 capsule by ity of capsule 00:00: mouth in [place] 00 the Medical morning Branch and 1 capsule in the evening. DULoxetine 2021-02- No [id number] 60mg Take 1 [facility] 60 mg 2-11 03- capsule by ity of capsule 00:00: 00:00 mouth in [place] 00 :00 the Medical morning Branch and 1 capsule in the evening. DULoxetine 2021-02- No [id number] 60mg Take 1 [facility] 60 mg 2-28 -04 capsule by ity of capsule 00:00: 00:00 mouth in [place] 00 :00 the Medical morning Branch and 1 capsule in the evening. DULoxetine 2021-02- No [id number] 60mg Take 1 [facility] 60 mg 2-28 -04 capsule by ity of capsule 00:00: 00:00 mouth in [place] 00 :00 the Medical morning Branch and 1 capsule in the evening. DULoxetine 2021-02- No [id number] 60mg Take 1 [facility] 60 mg 2-28 -04 capsule by ity of capsule 00:00: 00:00 mouth in [place] 00 :00 the Medical morning Branch and 1 capsule in the evening. DULoxetine 2021-02- No [id number] 60mg Take 1 [facility] 60 mg 2-28 -04 capsule by ity of capsule 00:00: 00:00 mouth in [place] 00 :00 the Medical morning Branch and 1 capsule in the evening. DULoxetine 2021-02- No [id number] 60mg Take 1 [facility] 60 mg 2-28 -04 capsule by ity of capsule 00:00: 00:00 mouth in [place] 00 :00 the Medical morning Branch and 1 capsule in the evening. DULoxetine 2021-02- No [id number] 60mg Take 1 [facility] 60 mg 2-28 -04 capsule by ity of capsule 00:00: 00:00 mouth in [place] 00 :00 the Medical morning Branch and 1 capsule in the evening. DULoxetine 2021-02- No [id number] 60mg Take 1 [facility] 60 mg 2-28 -04 capsule by ity of capsule 00:00: 00:00 mouth in [place] 00 :00 the Medical morning Branch and 1 capsule in the evening. lamoTRIgine 2021-02 Yes [id number] 100mg Take 1 [facility] 100 mg 2-22 tablet by ity of tablet 00:00: mouth in [place] 00 the Medical morning Branch and 1 tablet in the evening. lamoTRIgine 2021-02 Yes [id number] 100mg Take 1 [facility] 100 mg 2-22 tablet by ity of tablet 00:00: mouth in [place] 00 the Medical morning Branch and 1 tablet in the evening. lamoTRIgine 2021-02- No [id number] 100mg Take 1 [facility] 100 mg 2-22 -04 tablet by ity of tablet 00:00: 00:00 mouth in [place] 00 :00 the Medical morning Branch and 1 tablet in the evening. lamoTRIgine 2021-02- No [id number] 100mg Take 1 [facility] 100 mg 2-22 -04 tablet by ity of tablet 00:00: 00:00 mouth in [place] 00 :00 the Medical morning Branch and 1 tablet in the evening. lamoTRIgine 2021-02- No [id number] 100mg Take 1 [facility] 100 mg 2-22 01-04 tablet by ity of tablet 00:00: 00:00 mouth in [place] 00 :00 the Medical morning Branch and 1 tablet in the evening. lamoTRIgine 2021-02- No [id number] 100mg Take 1 [facility] 100 mg 2-22 01-04 tablet by ity of tablet 00:00: 00:00 mouth in [place] 00 :00 the Medical morning Branch and 1 tablet in the evening. lamoTRIgine 2021-02- No [id number] 100mg Take 1 [facility] 100 mg 04-05- tablet by ity of tablet 00:00: 00:00 mouth in [place] 00 :00 the Medical morning Branch and 1 tablet in the evening. lamoTRIgine 2021-02- No [id number] 100mg Take 1 [facility] 100 mg 2- tablet by ity of tablet 00:00: 00:00 mouth in [place] 00 :00 the Medical morning Branch and 1 tablet in the evening. lamoTRIgine 2021-02- No [id number] 100mg Take 1 [facility] 100 mg 04-05- tablet by ity of tablet 00:00: 00:00 mouth in [place] 00 :00 the Medical morning Branch and 1 tablet in the evening. lamoTRIgine 2021-02- No [id number] 100mg Take 1 [facility] 100 mg 04-05 tablet by ity of tablet 00:00: 00:00 mouth in [place] 00 :00 the Medical morning Branch and 1 tablet in the evening. traZODone 2021-02 Yes [id number] 50mg Take 1 U nivers 50 mg 1-30 tablet by ity of tablet 00:00: mouth at [place] [address] bedtime. Medical May cut Branch tablet in half. lamoTRIgine 2021-02 Yes [id number] 100mg Take 1 [facility] 100 mg 1-30 tablet by ity of tablet 00:00: mouth in [place] 00 the Medical morning Branch and 1 tablet in the evening. traZODone 2021-02 Yes [id number] 50mg Take 1 U nivers 50 mg 1-30 tablet by [facility] of tablet 00:00: mouth at [place] [address] bedtime. Medical May cut Branch tablet in half. lamoTRIgine 2021-02 Yes [id number] 100mg Take 1 [facility] 100 mg 1-30 tablet by ity of tablet 00:00: mouth in [place] 00 the Medical morning Branch and 1 tablet in the evening. traZODone 2021-02 Yes [id number] 50mg Take 1 U nivers 50 mg 1-30 tablet by [facility] of tablet 00:00: mouth at [place] [address] bedtime. Medical May cut Branch tablet in half. lamoTRIgine 2021-02 Yes [id number] 100mg Take 1 [facility] 100 mg 1-30 tablet by ity of tablet 00:00: mouth in [place] 00 the Medical morning Branch and 1 tablet in the evening. traZODone 2021-02 Yes [id number] 50mg Take 1 U nivers 50 mg 1-30 tablet by [facility] of tablet 00:00: mouth at [place] 00 bedtime. Medical May cut Branch tablet in half. traZODone 2021-02 Yes [id number] 50mg Take 1 U nivers 50 mg 1-30 tablet by [facility] of tablet 00:00: mouth at [place] 00 bedtime. Medical May cut Branch tablet in half. traZODone 2021-02- No [id number] 50mg Take 1 [facility] 50 mg 1-30 01-04 tablet by [facility]y of tablet 00:00: 00:00 mouth at [place] 00 :00 bedtime. Medical May cut Branch tablet in half. traZODone 2021-02- No [id number] 50mg Take 1 [facility] 50 mg 1-30 -04 tablet by [facility]y of tablet 00:00: 00:00 mouth at [place] 00 :00 bedtime. Medical May cut Branch tablet in half. traZODone 2021-02- No [id number] 50mg Take 1 [facility] 50 mg 1-30 -04 tablet by [facility] of tablet 00:00: 00:00 mouth at [place] 00 :00 bedtime. Medical May cut Branch tablet in half. traZODone 2021-02- No [id number] 50mg Take 1 [facility] 50 mg 1-30 -04 tablet by [facility]y of tablet 00:00: 00:00 mouth at [place] 00 :00 bedtime. Medical May cut Branch tablet in half. traZODone 2021-02- No [id number] 50mg Take 1 [facility] 50 mg 1-30 -04 tablet by [facility] tablet 00:00: 00:00 mouth at [place] 00 :00 bedtime. Medical May cut Branch tablet in half. traZODone 2021-02- No [id number] 50mg Take 1 [facility] 50 mg 1-30 01-04 tablet by [facility] tablet 00:00: 00:00 mouth at [place] 00 :00 bedtime. Medical May cut Branch tablet in half. traZODone 2021-02- No [id number] 50mg Take 1 [facility] 50 mg 1-30 01-04 tablet by [facility] tablet 00:00: 00:00 mouth at [place] 00 :00 bedtime. Medical May cut Branch tablet in half. traZODone 2021-02- No [id number] 50mg Take 1 [facility] 50 mg 1-30 -04 tablet by [facility] tablet 00:00: 00:00 mouth at [place] 00 :00 bedtime. Medical May cut Branch tablet in half. lamoTRIgine 2021-02- No [id number] 100mg Take 1 [facility] 100 mg 1-30 12-22 tablet by [facility] tablet 00:00: 00:00 mouth in [place] 00 :00 the Medical morning Branch and 1 tablet in the evening. lamoTRIgine 2021-02- No [id number] 100mg Take 1 [facility] 100 mg 1-30 12-22 tablet by [facility] tablet 00:00: 00:00 mouth in [place] 00 :00 the Medical morning Branch and 1 tablet in the evening. lamoTRIgine 2021-02- No [id number] 100mg Take 1 [facility] 100 mg 1-30 - tablet by [facility] tablet 00:00: 00:00 mouth in [place] 00 :00 the Medical morning Branch and 1 tablet in the evening. lamoTRIgine 2021-02- No [id number] 100mg Take 1 [facility] 100 mg 1-30 12-22 tablet by [facility] tablet 00:00: 00:00 mouth in [place] 00 :00 the Medical morning Branch and 1 tablet in the evening. lamoTRIgine 2021-02- No [id number] 100mg Take 1 [facility] 100 mg 1-30 12-22 tablet by [facility] tablet 00:00: 00:00 mouth in [place] 00 :00 the Medical morning Branch and 1 tablet in the evening. DULoxetine 2021-02 Yes [id number] 60mg Take 1 [facility] 60 mg 1-28 capsule by [facility] capsule 00:00: mouth in [place] 00 the Medical morning Branch and 1 capsule in the evening. clonazePAM 2021-02 Yes [id number] Take 1 [facility] 1 mg tablet 1-28 tablet by [facility] of 00:00: mouth [place] 00 twice Medical daily as Branch needed for anxiety. DULoxetine 2021-02 Yes [id number] 60mg Take 1 [facility] 60 mg 1-28 capsule by [facility] capsule 00:00: mouth in [place] 00 the Medical morning Branch and 1 capsule in the evening. clonazePAM 2021-02 Yes [id number] Take 1 [facility] 1 mg tablet 1-28 tablet by [facility] of 00:00: mouth [place] 00 twice Medical daily as Branch needed for anxiety. DULoxetine 2021-02 Yes [id number] 60mg Take 1 [facility] 60 mg 1-28 capsule by [facility] capsule 00:00: mouth in [place] 00 the Medical morning Branch and 1 capsule in the evening. clonazePAM 2021-02 Yes [id number] Take 1 [facility] 1 mg tablet 1-28 tablet by [facility] of 00:00: mouth [place] 00 twice Medical daily as Branch needed for anxiety. DULoxetine 2021-02 Yes [id number] 60mg Take 1 [facility] 60 mg 1-28 capsule by [facility] capsule 00:00: mouth in [place] 00 the Medical morning Branch and 1 capsule in the evening. clonazePAM 2021-02 Yes [id number] Take 1 [facility] 1 mg tablet 1-28 tablet by [facility] of 00:00: mouth [place] 00 twice Medical daily as Branch needed for anxiety. DULoxetine 2021-02 Yes [id number] 60mg Take 1 [facility] 60 mg 1-28 capsule by [facility] capsule 00:00: mouth in [place] 00 the Medical morning Branch and 1 capsule in the evening. clonazePAM 2021-02 Yes [id number] Take 1 [facility] 1 mg tablet 1-28 tablet by [facility] of 00:00: mouth [place] 00 twice Medical daily as Branch needed for anxiety. DULoxetine 2021-02 Yes [id number] 60mg Take 1 [facility] 60 mg 1-28 capsule by [facility] capsule 00:00: mouth in [place] 00 the Medical morning Branch and 1 capsule in the evening. clonazePAM 2021-02 Yes [id number] Take 1 [facility] 1 mg tablet 1-28 tablet by [facility] of 00:00: mouth [place] 00 twice Medical daily as Branch needed for anxiety. clonazePAM 2021-02 Yes [id number] Take 1 [facility] 1 mg tablet 1-28 tablet by [facility] of 00:00: mouth [place] 00 twice Medical daily as Branch needed for anxiety. clonazePAM 2021-02- No [id number] Take 1 [facility] 1 mg tablet 1-28 - tablet by it y of 00:00: 00:00 mouth [place] 00 :00 twice Medical daily as Branch needed for anxiety. clonazePAM 2021-02- No [id number] Take 1 [facility] 1 mg tablet 03-11 tablet by it y of 00:00: 00:00 mouth [place] 00 :00 twice Medical daily as Branch needed for anxiety. clonazePAM 2021-02 No [id number] Take 1 [facility] 1 mg tablet 03-11 tablet by it y of 00:00: 00:00 mouth [place] 00 :00 twice Medical daily as Branch needed for anxiety. clonazePAM 2021-02- No [id number] Take 1 [facility] 1 mg tablet 03-11 tablet by it y of 00:00: 00:00 mouth [place] 00 :00 twice Medical daily as Branch needed for anxiety. clonazePAM 2021-02- No [id number] Take 1 [facility] 1 mg tablet 03-11 tablet by it y of 00:00: 00:00 mouth [place] 00 :00 twice Medical daily as Branch needed for anxiety. clonazePAM 2021-02- No [id number] Take 1 [facility] 1 mg tablet 03-11 tablet by it y of 00:00: 00:00 mouth [place] 00 :00 twice Medical daily as Branch needed for anxiety. clonazePAM 2021-02- No [id number] Take 1 [facility] 1 mg tablet 03-11 tablet by it y of 00:00: 00:00 mouth [place] 00 :00 twice Medical daily as Branch needed for anxiety. clonazePAM 2021-02- No [id number] Take 1 [facility] 1 mg tablet 03-11 tablet by it y of 00:00: 00:00 mouth [place] 00 :00 twice Medical daily as Branch needed for anxiety. DULoxetine 2021-02- No [id number] 60mg Take 1 [facility] 60 mg -08 02-27 capsule by [facility] capsule 00:00: 00:00 mouth in [place] 00 :00 the Medical morning Branch and 1 capsule in the evening. DULoxetine 2021-02- No [id number] 60mg Take 1 [facility] 60 mg -28 12-27 capsule by [facility] capsule 00:00: 00:00 mouth in [place] 00 :00 the Medical morning Branch and 1 capsule in the evening. DULoxetine 2021-02- No [id number] 60mg Take 1 [facility] 60 mg -28 12-27 capsule by [facility] capsule 00:00: 00:00 mouth in [place] 00 :00 the Medical morning Branch and 1 capsule in the evening. DULoxetine 2021-02- No [id number] 60mg Take 1 [facility] 60 mg 1-28 12-27 capsule by [facility] capsule 00:00: 00:00 mouth in [place] 00 :00 the Medical morning Branch and 1 capsule in the evening. DULoxetine 2021-02- No [id number] 60mg Take 1 [facility] 60 mg 1-28 12-27 capsule by [facility] capsule 00:00: 00:00 mouth in [place] 00 :00 the Medical morning Branch and 1 capsule in the evening. traZODone 2021-02 Yes [id number] 50mg Take 1 [facility] 50 mg 1-22 tablet by [facility] tablet 00:00: mouth at [place] 00 bedtime. Medical May cut Branch tablet in half. traZODone 2021-02 Yes [id number] 50mg Take 1 [facility] 50 mg 1-22 tablet by [facility] tablet 00:00: mouth at [place] [address] bedtime. Medical May cut Branch tablet in half. traZODone 2021-02 Yes [id number] 50mg Take 1 [facility] 50 mg 1-22 tablet by [facility] tablet 00:00: mouth at [place] 00 bedtime. Medical May cut Branch tablet in half. traZODone 2021-02- No [id number] 50mg Take 1 [facility] 50 mg 1-22 11-30 tablet by [facility] tablet 00:00: 00:00 mouth at [place] 00 :00 bedtime. Medical May cut Branch tablet in half. traZODone 2021-02- No [id number] 50mg Take 1 [facility] 50 mg 1-22 11-30 tablet by [facility] tablet 00:00: 00:00 mouth at [place] 00 :00 bedtime. Medical May cut Branch tablet in half. traZODone 2021-02- No [id number] 50mg Take 1 [facility] 50 mg 1-22 11-30 tablet by [facility] tablet 00:00: 00:00 mouth at [place] 00 :00 bedtime. Medical May cut Branch tablet in half. traZODone 2021-02- No [id number] 50mg Take 1 [facility] 50 mg 1-22 11-30 tablet by [facility] tablet 00:00: 00:00 mouth at [place] 00 :00 bedtime. Medical May cut Branch tablet in half. traZODone 2021-02- No [id number] 50mg Take 1 [facility] 50 mg 1-22 11-30 tablet by [facility] tablet 00:00: 00:00 mouth at [place] 00 :00 bedtime. Medical May cut Branch tablet in half. DULoxetine 2021-02 Yes [id number] 60mg Take 1 [facility] 60 mg 0-25 capsule by [facility] capsule 00:00: mouth in [place] 00 the Medical morning Branch and 1 capsule in the evening. DULoxetine 2021-02 Yes [id number] 60mg Take 1 [facility] 60 mg 0-25 capsule by [facility] capsule 00:00: mouth in [place] 00 the Medical morning Branch and 1 capsule in the evening. DULoxetine 2021-02 Yes [id number] 60mg Take 1 [facility] 60 mg 0-25 capsule by [facility] capsule 00:00: mouth in [place] 00 the Medical morning Branch and 1 capsule in the evening. DULoxetine 2021-02- No [id number] 60mg Take 1 [facility] 60 mg 0-25 11-28 capsule by [facility] capsule 00:00: 00:00 mouth in [place] 00 :00 the Medical morning Branch and 1 capsule in the evening. DULoxetine 2021-02- No [id number] 60mg Take 1 [facility] 60 mg 0-25 11-28 capsule by [facility] capsule 00:00: 00:00 mouth in [place] 00 :00 the Medical morning Branch and 1 capsule in the evening. DULoxetine 2021-02- No [id number] 60mg Take 1 [facility] 60 mg 0-25 11-28 capsule by [facility] capsule 00:00: 00:00 mouth in [place] 00 :00 the Medical morning Branch and 1 capsule in the evening. DULoxetine 2021-02- No [id number] 60mg Take 1 [facility] 60 mg 0-25 11-28 capsule by [facility] capsule 00:00: 00:00 mouth in [place] 00 :00 the Medical morning Branch and 1 capsule in the evening. DULoxetine 2021-02- No [id number] 60mg Take 1 [facility] 60 mg 0-25 11-28 capsule by [facility] capsule 00:00: 00:00 mouth in [place] 00 :00 the Medical morning Branch and 1 capsule in the evening. clonazePAM 2021-02 Yes [id number] Take 1 [facility] 1 mg tablet 0-20 tablet by [facility] of 00:00: mouth [place] 00 twice Medical daily as Branch needed for anxiety. lithium 600 2021-02 Yes [id number] 600mg Take 1 [facility] mg capsule 0-20 capsule by [facility] of 00:00: mouth in [place] 00 the Medical morning Branch and 1 capsule in the evening. lamoTRIgine 2021-02 Yes [id number] 50mg Take 2 [facility] 25 mg 0-20 tablets by [facility] of tablet 00:00: mouth in [place] 00 the Medical morning Branch and 2 tablets in the evening. clonazePAM 2021-02 Yes [id number] Take 1 [facility] 1 mg tablet 0-20 tablet by [facility] of 00:00: mouth [place] 00 twice Medical daily as Branch needed for anxiety. lithium 600 2021-02 Yes [id number] 600mg Take 1 [facility] mg capsule 0-20 capsule by [facility] of 00:00: mouth in [place] 00 the Medical morning Branch and 1 capsule in the evening. lamoTRIgine 2021-02 Yes [id number] 50mg Take 2 [facility] 25 mg 0-20 tablets by [facility] of tablet 00:00: mouth in [place] [address] the Medical morning Branch and 2 tablets in the evening. clonazePAM 2021-02 Yes [id number] Take 1 [facility] 1 mg tablet 0-20 tablet by [facility] of 00:00: mouth [place] [address] twice Medical daily as Branch needed for anxiety. lithium 600 2021-02 Yes [id number] 600mg Take 1 [facility] mg capsule 0-20 capsule by [facility] of 00:00: mouth in [place] 00 the Medical morning Branch and 1 capsule in the evening. lamoTRIgine 2021-02 Yes [id number] 50mg Take 2 [facility] 25 mg 0-20 tablets by [facility] of tablet 00:00: mouth in [place] [address] the Medical morning Branch and 2 tablets in the evening. lithium 600 2021-02 Yes [id number] 600mg Take 1 [facility] mg capsule 0-20 capsule by [facility] of 00:00: mouth in [place] [address] the Medical morning Branch and 1 capsule in the evening. lamoTRIgine 2021-02 Yes [id number] 50mg Take 2 [facility] 25 mg 0-20 tablets by [facility] of tablet 00:00: mouth in [place] [address] the Medical morning Branch and 2 tablets in the evening. lithium 600 2021-02 Yes [id number] 600mg Take 1 [facility] mg capsule 0-20 capsule by [facility] of 00:00: mouth in [place] 00 the Medical morning Branch and 1 capsule in the evening. lamoTRIgine 2021-02 Yes [id number] 50mg Take 2 [facility] 25 mg 0-20 tablets by [facility] of tablet 00:00: mouth in [place] [address] the Medical morning Branch and 2 tablets in the evening. lithium 600 2021-02 Yes [id number] 600mg Take 1 [facility] mg capsule 0-20 capsule by [facility] of 00:00: mouth in [place] [address] the Medical morning Branch and 1 capsule in the evening. lithium 600 2021-02 Yes [id number] 600mg Take 1 [facility] mg capsule 0-20 capsule by [facility] of 00:00: mouth in [place] [address] the Medical morning Branch and 1 capsule in the evening. lithium 600 2021-02 Yes [id number] 600mg Take 1 [facility] mg capsule 0-20 capsule by [facility] of 00:00: mouth in [place] [address] the Medical morning Branch and 1 capsule in the evening. lithium 600 2021-02 Yes [id number] 600mg Take 1 [facility] mg capsule 0-20 capsule by [facility] of 00:00: mouth in [place] [address] the Medical morning Branch and 1 capsule in the evening. lithium 600 2021-02 Yes [id number] 600mg Take 1 [facility] mg capsule 0-20 capsule by [facility] of 00:00: mouth in [place] [address] the Medical morning Branch and 1 capsule in the evening. lithium 600 2021-02- No [id number] 600mg Take 1 [facility] mg capsule 0-20 01-04 capsule by it y of 00:00: 00:00 mouth in [place] 00 :00 the Medical morning Branch and 1 capsule in the evening. lithium 600 2021-02- No [id number] 600mg Take 1 [facility] mg capsule 0-20 01-04 capsule by it y of 00:00: 00:00 mouth in [place] 00 :00 the Medical morning Branch and 1 capsule in the evening. lithium 600 2021-2022- No [id number] 600mg Take 1 [facility] mg capsule 0-20 01-04 capsule by it y of 00:00: 00:00 mouth in [place] 00 :00 the Medical morning Branch and 1 capsule in the evening. lithium 600 2021-2022- No [id number] 600mg Take 1 [facility] mg capsule 0-20 01-04 capsule by it y of 00:00: 00:00 mouth in [place] 00 :00 the Medical morning Branch and 1 capsule in the evening. lithium 600 2021-3- No [id number] 600mg Take 1 [facility] mg capsule 0-20 01-04 capsule by it y of 00:00: 00:00 mouth in [place] 00 :00 the Medical morning Branch and 1 capsule in the evening. lithium 600 2021-3- No [id number] 600mg Take 1 [facility] mg capsule 0-20 01-04 capsule by it y of 00:00: 00:00 mouth in [place] 00 :00 the Medical morning Branch and 1 capsule in the evening. lithium 600 2021-2022- No [id number] 600mg Take 1 [facility] mg capsule 0-20 01-04 capsule by it y of 00:00: 00:00 mouth in [place] 00 :00 the Medical morning Branch and 1 capsule in the evening. lithium 600 2021-2022- No [id number] 600mg Take 1 [facility] mg capsule 0-20 01-04 capsule by it y of 00:00: 00:00 mouth in [place] 00 :00 the Medical morning Branch and 1 capsule in the evening. lamoTRIgine 2021-2- No [id number] 50mg Take 2 [facility] 25 mg 0-20 11-30 tablets by [facility] of tablet 00:00: 00:00 mouth in [place] 00 :00 the Medical morning Branch and 2 tablets in the evening. lamoTRIgine 2021-2- No [id number] 50mg Take 2 [facility] 25 mg 0-20 11-30 tablets by [facility] of tablet 00:00: 00:00 mouth in [place] 00 :00 the Medical morning Branch and 2 tablets in the evening. lamoTRIgine 2021-2- No [id number] 50mg Take 2 [facility] 25 mg 0-20 11-30 tablets by [facility] of tablet 00:00: 00:00 mouth in [place] 00 :00 the Medical morning Branch and 2 tablets in the evening. lamoTRIgine 2021-2- No [id number] 50mg Take 2 [facility] 25 mg 0-20 11-30 tablets by [facility] of tablet 00:00: 00:00 mouth in [place] 00 :00 the Medical morning Branch and 2 tablets in the evening. lamoTRIgine 2021-2- No [id number] 50mg Take 2 [facility] 25 mg 0-20 11-30 tablets by [facility] of tablet 00:00: 00:00 mouth in [place] 00 :00 the Medical morning Branch and 2 tablets in the evening. clonazePAM 2021-02- No [id number] Take 1 [facility] 1 mg tablet 0-20 11-28 tablet by it y of 00:00: 00:00 mouth [place] 00 :00 twice Medical daily as Branch needed for anxiety. clonazePAM 2021-02- No [id number] Take 1 [facility] 1 mg tablet 0-20 11-28 tablet by it y of 00:00: 00:00 mouth [place] 00 :00 twice Medical daily as Branch needed for anxiety. clonazePAM 2021-02- No [id number] Take 1 [facility] 1 mg tablet 0-20 11-28 tablet by it y of 00:00: 00:00 mouth [place] 00 :00 twice Medical daily as Branch needed for anxiety. clonazePAM 2021-02- No [id number] Take 1 [facility] 1 mg tablet 0-20 11-28 tablet by it y of 00:00: 00:00 mouth [place] 00 :00 twice Medical daily as Branch needed for anxiety. clonazePAM 2021-02- No [id number] Take 1 [facility] 1 mg tablet 0-20 11-28 tablet by it y of 00:00: 00:00 mouth [place] 00 :00 twice Medical daily as Branch needed for anxiety. lamoTRIgine Yes [id number] 50mg Take 2 [facility] 25 mg 8-26 tablets by [facility] of tablet 00:00: mouth in [place] 00 the Medical morning Branch and 2 tablets in the evening. lamoTRIgine 2021-0 2021- No [id number] 50mg Take 2 [facility] 25 mg 8-26 10-19 tablets by [facility] of tablet 00:00: 00:00 mouth in [place] 00 :00 the Medical morning Branch and 2 tablets in the evening. lamoTRIgine 2021-0 2021- No [id number] 50mg Take 2 [facility] 25 mg 8-26 10-19 tablets by [facility] of tablet 00:00: 00:00 mouth in [place] 00 :00 the Medical morning Branch and 2 tablets in the evening. clonazePAM 2021-0 Yes [id number] Take no [facility] 1 mg tablet 8-25 more than ity of 00:00: 1 mg twice [place] 00 daily as Medical needed for Branch anxiety lithium 600 2021-0 Yes [id number] 600mg Take 1 [facility] mg capsule 8-25 capsule by [facility] of 00:00: mouth in [place] 00 the Medical morning Branch and 1 capsule in the evening. clonazePAM 2021- No [id number] Take no [facility] 1 mg tablet 8-25 10-19 more than it y of 00:00: 00:00 1 mg twice [place] 00 :00 daily as Medical needed for Branch anxiety lithium 600 2021-0 2021- No [id number] 600mg Take 1 [facility] mg capsule 8-25 10-19 capsule by it y of 00:00: 00:00 mouth in [place] 00 :00 the Medical morning Branch and 1 capsule in the evening. clonazePAM 2021-2021- No [id number] Take no [facility] 1 mg tablet 8-25 10-19 more than it y of 00:00: 00:00 1 mg twice [place] 00 :00 daily as Medical needed for Branch anxiety lithium 600 2021-2021- No [id number] 600mg Take 1 [facility] mg capsule 8-25 10-19 capsule by it y of 00:00: 00:00 mouth in [place] 00 :00 the Medical morning Branch and 1 capsule in the evening. Lamotrigine 2021-2021- No [id number] 50mg Take 1 [facility] 50 mg 8-25 08-26 tablet by [facility] of tablet 00:00: 00:00 mouth in [place] 00 :00 the Medical morning Branch and 1 tablet in the evening. Lamotrigine 2021-2021- No [id number] 50mg Take 1 [facility] 50 mg 8-11 08-25 tablet by [facility] of tablet 00:00: 00:00 mouth in [place] 00 :00 the Medical morning Branch and 1 tablet in the evening. DULoxetine 2021-0 Yes [id number] 60mg Take 1 [facility] 60 mg 7-27 capsule by [facility] of capsule 00:00: mouth in [place] 00 the Medical morning Branch and 1 capsule in the evening. DULoxetine 0 2021- No [id number] 60mg Take 1 [facility] 60 mg 7-27 10-24 capsule by [facility] of capsule 00:00: 00:00 mouth in [place] 00 :00 the Medical morning Branch and 1 capsule in the evening. DULoxetine 2021-2021- No [id number] 60mg Take 1 [facility] 60 mg 7-27 10-24 capsule by [facility] of capsule 00:00: 00:00 mouth in [place] 00 :00 the Medical morning Branch and 1 capsule in the evening. DULoxetine 2021-0 2- No [id number] 60mg Take 1 [facility] 60 mg 7-27 10-24 capsule by [facility] of capsule 00:00: 00:00 mouth in [place] 00 :00 the Medical morning Branch and 1 capsule in the evening. Lamotrigine 2021-0 2- No [id number] 50mg Take 1 [facility] 50 mg 7-18 08-11 tablet by [facility] of tablet 00:00: 00:00 mouth in [place] 00 :00 the Medical morning Branch and 1 tablet in the evening. lithium 600 2021-0 2021- No [id number] 600mg Take 1 [facility] mg capsule 7- 08-25 capsule by it y of 00:00: 00:00 mouth in [place] 00 :00 the Medical morning Branch and 1 capsule in the evening. traZODone 2021-0 Yes [id number] 50mg Take 1 [facility] 50 mg 6-28 tablet by [facility] of tablet 00:00: mouth at [place] [address] bedtime. Medical May cut Branch tablet in half. DULoxetine 2021-0 Yes [id number] 60mg Take 1 [facility] 60 mg 6-28 capsule by [facility] of capsule 00:00: mouth 2 [place] [address] (two) Medical times Branch daily. traZODone 2021-0 Yes [id number] 50mg Take 1 [facility] 50 mg 6-28 tablet by [facility] of tablet 00:00: mouth at [place] [address] bedtime. Medical May cut Branch tablet in half. DULoxetine 2021-0 Yes [id number] 60mg Take 1 [facility] 60 mg 6-28 capsule by [facility] of capsule 00:00: mouth 2 [place] [address] (two) Medical times Branch daily. traZODone 2021-0 Yes [id number] 50mg Take 1 [facility] 50 mg 6-28 tablet by [facility] of tablet 00:00: mouth at [place] [address] bedtime. Medical May cut Branch tablet in half. DULoxetine 2021-0 Yes [id number] 60mg Take 1 [facility] 60 mg 6-28 capsule by [facility] of capsule 00:00: mouth 2 [place] [address] (two) Medical times Branch daily. DULoxetine 2021-0 Yes [id number] 60mg Take 1 [facility] 60 mg 6-28 capsule by [facility] of capsule 00:00: mouth 2 [place] 00 (two) Medical times Branch daily. traZODone 2021- No [id number] 50mg Take 1 [facility] 50 mg 6-28 11-21 tablet by [facility] of tablet 00:00: 00:00 mouth at [place] 00 :00 bedtime. Medical May cut Branch tablet in half. traZODone 2021- No [id number] 50mg Take 1 [facility] 50 mg 6-28 11-21 tablet by [facility] of tablet 00:00: 00:00 mouth at [place] 00 :00 bedtime. Medical May cut Branch tablet in half. traZODone 2021- No [id number] 50mg Take 1 [facility] 50 mg 6-28 11-21 tablet by [facility] of tablet 00:00: 00:00 mouth at [place] 00 :00 bedtime. Medical May cut Branch tablet in half. traZODone 2021- No [id number] 50mg Take 1 [facility] 50 mg 6-28 11-21 tablet by [facility] of tablet 00:00: 00:00 mouth at [place] 00 :00 bedtime. Medical May cut Branch tablet in half. traZODone 2021- No [id number] 50mg Take 1 [facility] 50 mg 6-28 11-21 tablet by [facility] of tablet 00:00: 00:00 mouth at [place] 00 :00 bedtime. Medical May cut Branch tablet in half. clonazePAM 2021- No [id number] Take no [facility] 1 mg tablet 6-28 08-25 more than it y of 00:00: 00:00 1 mg twice [place] 00 :00 daily as Medical needed for Branch anxiety vitamin Yes [id number] 1000ug Take 1 U nivers B-12 1,000 4-11 tablet by ity of mcg tablet 00:00: mouth [place] 00 daily. Medical Branch cyanocobala Yes [id number] 1000ug 1 mL by [facility] min 1,000 4-11 [facility] of mcg/mL 00:00: lar route [place] injection 00 weekly. Medical Branch vitamin Yes [id number] 1000ug Take 1 U nivers B-12 1,000 4-11 tablet by ity of mcg tablet 00:00: mouth [place] 00 daily. Medical Branch cyanocobala 2021-0 Yes [id number] 1000ug 1 mL by [facility] min 1,000 4-11 [facility] of mcg/mL 00:00: lar route [place] injection 00 weekly. [facility] Branch vitamin 2021-0 Yes [id number] 1000ug Take 1 U nivers B-12 1,000 4-11 tablet by ity of mcg tablet 00:00: mouth [place] 00 daily. [facility] Branch cyanocobala 2021-0 Yes [id number] 1000ug 1 mL by [facility] min 1,000 4-11 [facility] ity of mcg/mL 00:00: lar route [place] injection 00 weekly. [facility] Branch vitamin 2021-0 Yes [id number] 1000ug Take 1 U nivers B-12 1,000 4-11 tablet by ity of mcg tablet 00:00: mouth [place] 00 daily. [facility] Branch cyanocobala 2021-0 Yes [id number] 1000ug 1 mL by [facility] min 1,000 4-11 [facility] ity of mcg/mL 00:00: lar route [place] injection 00 weekly. [facility] Branch vitamin 2021-0 Yes [id number] 1000ug Take 1 U nivers B-12 1,000 4-11 tablet by ity of mcg tablet 00:00: mouth [place] 00 daily. [facility] Branch cyanocobala 2021-0 Yes [id number] 1000ug 1 mL by [facility] min 1,000 4-11 [facility] ity of mcg/mL 00:00: lar route [place] injection 00 weekly. [facility] vitamin 2021-0 Yes [id number] 1000ug Take 1 U nivers B-12 1,000 4-11 tablet by ity of mcg tablet 00:00: mouth [place] 00 daily. [facility] Branch cyanocobala 2021-0 Yes [id number] 1000ug 1 mL by [facility] min 1,000 4-11 [facility] ity of mcg/mL 00:00: lar route [place] injection 00 weekly. [facility] vitamin 2021-0 Yes [id number] 1000ug Take 1 U nivers B-12 1,000 4-11 tablet by ity of mcg tablet 00:00: mouth [place] 00 daily. [facility] cyanocobala 2021-0 Yes [id number] 1000ug 1 mL by [facility] min 1,000 4-11 [facility] ity of mcg/mL 00:00: lar route [place] injection 00 weekly. Medical Branch vitamin 2021-0 Yes [id number] 1000ug Take 1 U nivers B-12 1,000 4-11 tablet by ity of mcg tablet 00:00: mouth [place] 00 daily. Medical Branch cyanocobala 2021-0 Yes [id number] 1000ug 1 mL by [facility] min 1,000 4-11 [facility] ity of mcg/mL 00:00: lar route [place] injection 00 weekly. Medical Branch vitamin 2021-0 Yes [id number] 1000ug Take 1 U nivers B-12 1,000 4-11 tablet by ity of mcg tablet 00:00: mouth [place] 00 daily. Medical Branch cyanocobala 2021-0 Yes [id number] 1000ug 1 mL by [facility] min 1,000 4-11 [facility] ity of mcg/mL 00:00: lar route [place] injection 00 weekly. Medical Branch vitamin 2021-0 Yes [id number] 1000ug Take 1 U nivers B-12 1,000 4-11 tablet by ity of mcg tablet 00:00: mouth [place] 00 daily. Medical Branch cyanocobala 2021-0 Yes [id number] 1000ug 1 mL by [facility] min 1,000 4-11 [facility]y of mcg/mL 00:00: lar route [place] injection 00 weekly. Medical Branch vitamin 2021-0 Yes [id number] 1000ug Take 1 U nivers B-12 1,000 4-11 tablet by ity of mcg tablet 00:00: mouth [place] 00 daily. Medical Branch cyanocobala 2021-0 Yes [id number] 1000ug 1 mL by [facility] min 1,000 4-11 [facility] ity of mcg/mL 00:00: lar route [place] injection 00 weekly. [facility] Branch vitamin 2-0 Yes [id number] 1000ug Take 1 U nivers B-12 1,000 4-11 tablet by ity of mcg tablet 00:00: mouth [place] 00 daily. [facility] cyanocobala 2021-0 Yes [id number] 1000ug 1 mL by [facility] min 1,000 4-11 Intramuscu ity of mcg/mL 00:00: lar route [place] injection 00 weekly. [facility] vitamin 2-0 Yes [id number] 1000ug Take 1 U nivers B-12 1,000 4-11 tablet by ity of mcg tablet 00:00: mouth [place] 00 daily. [facility] cyanocobala 2021-0 Yes [id number] 1000ug 1 mL by [facility] min 1,000 4-11 Intramuscu ity of mcg/mL 00:00: lar route [place] injection 00 weekly. [facility] vitamin 2021-0 Yes [id number] 1000ug Take 1 U nivers B-12 1,000 4-11 tablet by ity of mcg tablet 00:00: mouth [place] 00 daily. [facility] cyanocobala 2021-0 Yes [id number] 1000ug 1 mL by [facility] min 1,000 4-11 Intramuscu ity of mcg/mL 00:00: lar route [place] injection 00 weekly. [facility] vitamin 2021-0 Yes [id number] 1000ug Take 1 U nivers B-12 1,000 4-11 tablet by ity of mcg tablet 00:00: mouth [place] 00 daily. [facility] cyanocobala 2021-0 Yes [id number] 1000ug 1 mL by [facility] min 1,000 4-11 Intramuscu ity of mcg/mL 00:00: lar route [place] injection 00 weekly. [facility] vitamin 2021-0 Yes [id number] 1000ug Take 1 U nivers B-12 1,000 4-11 tablet by ity of mcg tablet 00:00: mouth [place] 00 daily. [facility] cyanocobala 2021-0 Yes [id number] 1000ug 1 mL by [facility] min 1,000 4-11 Intramuscu ity of mcg/mL 00:00: lar route [place] injection 00 weekly. [facility] vitamin 2021-0 Yes [id number] 1000ug Take 1 U nivers B-12 1,000 4-11 tablet by ity of mcg tablet 00:00: mouth [place] 00 daily. [facility] cyanocobala 2021-0 Yes [id number] 1000ug 1 mL by [facility] min 1,000 4-11 Intramuscu ity of mcg/mL 00:00: lar route [place] injection 00 weekly. [facility] vitamin 2021-0 Yes [id number] 1000ug Take 1 U nivers B-12 1,000 4-11 tablet by ity of mcg tablet 00:00: mouth [place] 00 daily. [facility] cyanocobala 2021-0 Yes [id number] 1000ug 1 mL by [facility] min 1,000 4-11 Intramuscu ity of mcg/mL 00:00: lar route [place] injection 00 weekly. [facility] vitamin 2021-0 Yes [id number] 1000ug Take 1 U nivers B-12 1,000 4-11 tablet by ity of mcg tablet 00:00: mouth [place] 00 daily. [facility] cyanocobala 2021-0 Yes [id number] 1000ug 1 mL by [facility] min 1,000 4-11 Intramuscu ity of mcg/mL 00:00: lar route [place] injection 00 weekly. [facility] vitamin 2021-0 Yes [id number] 1000ug Take 1 U nivers B-12 1,000 4-11 tablet by ity of mcg tablet 00:00: mouth [place] 00 daily. [facility] cyanocobala 2021-0 Yes [id number] 1000ug 1 mL by [facility] min 1,000 4-11 Intramuscu ity of mcg/mL 00:00: lar route [place] injection 00 weekly. [facility] vitamin 2021-0 Yes [id number] 1000ug Take 1 U nivers B-12 1,000 4-11 tablet by ity of mcg tablet 00:00: mouth [place] 00 daily. [facility] cyanocobala 2021-0 Yes [id number] 1000ug 1 mL by [facility] min 1,000 4-11 Intramuscu ity of mcg/mL 00:00: lar route [place] injection 00 weekly. [facility] vitamin 2021-0 Yes [id number] 1000ug Take 1 U nivers B-12 1,000 4-11 tablet by ity of mcg tablet 00:00: mouth [place] 00 daily. [facility] cyanocobala 2021-0 Yes [id number] 1000ug 1 mL by [facility] min 1,000 4-11 Intramuscu ity of mcg/mL 00:00: lar route [place] injection 00 weekly. [facility] vitamin 2021-0 Yes [id number] 1000ug Take 1 U nivers B-12 1,000 4-11 tablet by ity of mcg tablet 00:00: mouth [place] 00 daily. [facility] cyanocobala 2021-0 Yes [id number] 1000ug 1 mL by [facility] min 1,000 4-11 Intramuscu ity of mcg/mL 00:00: lar route [place] injection 00 weekly. [facility] vitamin 2021-0 Yes [id number] 1000ug Take 1 U nivers B-12 1,000 4-11 tablet by ity of mcg tablet 00:00: mouth [place] 00 daily. [facility] cyanocobala 2021-0 Yes [id number] 1000ug 1 mL by [facility] min 1,000 4-11 Intramuscu ity of mcg/mL 00:00: lar route [place] injection 00 weekly. [facility] vitamin 2021-0 Yes [id number] 1000ug Take 1 U nivers B-12 1,000 4-11 tablet by ity of mcg tablet 00:00: mouth [place] 00 daily. [facility] cyanocobala 2021-0 Yes [id number] 1000ug 1 mL by [facility] min 1,000 4-11 Intramuscu ity of mcg/mL 00:00: lar route [place] injection 00 weekly. [facility] vitamin 2021-0 Yes [id number] 1000ug Take 1 U nivers B-12 1,000 4-11 tablet by ity of mcg tablet 00:00: mouth [place] 00 daily. [facility] cyanocobala 2021-0 Yes [id number] 1000ug 1 mL by [facility] min 1,000 4-11 Intramuscu ity of mcg/mL 00:00: lar route [place] injection 00 weekly. [facility] vitamin 2021-0 Yes [id number] 1000ug Take 1 U nivers B-12 1,000 4-11 tablet by ity of mcg tablet 00:00: mouth [place] 00 daily. [facility] cyanocobala 2021-0 Yes [id number] 1000ug 1 mL by [facility] min 1,000 4-11 Intramuscu ity of mcg/mL 00:00: lar route [place] injection 00 weekly. [facility] vitamin 2021-0 Yes [id number] 1000ug Take 1 U nivers B-12 1,000 4-11 tablet by ity of mcg tablet 00:00: mouth [place] 00 daily. [facility] cyanocobala 2021-0 Yes [id number] 1000ug 1 mL by [facility] min 1,000 4-11 Intramuscu ity of mcg/mL 00:00: lar route [place] injection 00 weekly. [facility] vitamin 2021-0 Yes [id number] 1000ug Take 1 U nivers B-12 1,000 4-11 tablet by ity of mcg tablet 00:00: mouth [place] 00 daily. [facility] cyanocobala 2021-0 Yes [id number] 1000ug 1 mL by [facility] min 1,000 4-11 Intramuscu ity of mcg/mL 00:00: lar route [place] injection 00 weekly. [facility] vitamin 2021-0 Yes [id number] 1000ug Take 1 U nivers B-12 1,000 4-11 tablet by ity of mcg tablet 00:00: mouth [place] 00 daily. [facility] cyanocobala 2021-0 Yes [id number] 1000ug 1 mL by [facility] min 1,000 4-11 Intramuscu ity of mcg/mL 00:00: lar route [place] injection 00 weekly. [facility] vitamin 2021-0 Yes [id number] 1000ug Take 1 U nivers B-12 1,000 4-11 tablet by ity of mcg tablet 00:00: mouth [place] 00 daily. [facility] cyanocobala 2021-0 Yes [id number] 1000ug 1 mL by [facility] min 1,000 4-11 Intramuscu ity of mcg/mL 00:00: lar route [place] injection 00 weekly. [facility] vitamin 2021-0 Yes [id number] 1000ug Take 1 U nivers B-12 1,000 4-11 tablet by ity of mcg tablet 00:00: mouth [place] 00 daily. [facility] cyanocobala 2021-0 Yes [id number] 1000ug 1 mL by [facility] min 1,000 4-11 Intramuscu ity of mcg/mL 00:00: lar route [place] injection 00 weekly. [facility] vitamin 2021-0 Yes [id number] 1000ug Take 1 U nivers B-12 1,000 4-11 tablet by ity of mcg tablet 00:00: mouth [place] 00 daily. [facility] cyanocobala 2021-0 Yes [id number] 1000ug 1 mL by [facility] min 1,000 4-11 Intramuscu ity of mcg/mL 00:00: lar route [place] injection 00 weekly. [facility] vitamin 2021-0 Yes [id number] 1000ug Take 1 U nivers B-12 1,000 4-11 tablet by ity of mcg tablet 00:00: mouth [place] 00 daily. [facility] cyanocobala 2021-0 Yes [id number] 1000ug 1 mL by [facility] min 1,000 4-11 Intramuscu ity of mcg/mL 00:00: lar route [place] injection 00 weekly. [facility] vitamin 2021-0 Yes [id number] 1000ug Take 1 U nivers B-12 1,000 4-11 tablet by ity of mcg tablet 00:00: mouth [place] 00 daily. [facility] cyanocobala 2021-0 Yes [id number] 1000ug 1 mL by [facility] min 1,000 4-11 Intramuscu ity of mcg/mL 00:00: lar route [place] injection 00 weekly. [facility] vitamin 2021-0 Yes [id number] 1000ug Take 1 U nivers B-12 1,000 4-11 tablet by ity of mcg tablet 00:00: mouth [place] 00 daily. [facility] cyanocobala 0 Yes [id number] 1000ug 1 mL by [facility] min 1,000 4-11 Intramuscu ity of mcg/mL 00:00: lar route [place] injection 00 weekly. [facility] vitamin 2021-0 Yes [id number] 1000ug Take 1 U nivers B-12 1,000 4-11 tablet by ity of mcg tablet 00:00: mouth [place] 00 daily. [facility] cyanocobala 0 Yes [id number] 1000ug 1 mL by [facility] min 1,000 4-11 Intramuscu ity of mcg/mL 00:00: lar route [place] injection 00 weekly. [facility] vitamin 2021-0 Yes [id number] 1000ug Take 1 U nivers B-12 1,000 4-11 tablet by ity of mcg tablet 00:00: mouth [place] 00 daily. [facility] cyanocobala 2021-0 Yes [id number] 1000ug 1 mL by [facility] min 1,000 4-11 Intramuscu ity of mcg/mL 00:00: lar route [place] injection 00 weekly. [facility] vitamin 2021-0 Yes [id number] 1000ug Take 1 U nivers B-12 1,000 4-11 tablet by ity of mcg tablet 00:00: mouth [place] 00 daily. [facility] cyanocobala 2021-0 Yes [id number] 1000ug 1 mL by [facility] min 1,000 4-11 Intramuscu ity of mcg/mL 00:00: lar route [place] injection 00 weekly. [facility] vitamin 2021-0 Yes [id number] 1000ug Take 1 U nivers B-12 1,000 4-11 tablet by ity of mcg tablet 00:00: mouth [place] 00 daily. [facility] cyanocobala 2021-0 Yes [id number] 1000ug 1 mL by [facility] min 1,000 4-11 Intramuscu ity of mcg/mL 00:00: lar route [place] injection 00 weekly. [facility] vitamin 2021-0 Yes [id number] 1000ug Take 1 U nivers B-12 1,000 4-11 tablet by ity of mcg tablet 00:00: mouth [place] 00 daily. [facility] cyanocobala 2021-0 Yes [id number] 1000ug 1 mL by [facility] min 1,000 4-11 Intramuscu ity of mcg/mL 00:00: lar route [place] injection 00 weekly. [facility] vitamin 2021-0 Yes [id number] 1000ug Take 1 U nivers B-12 1,000 4-11 tablet by ity of mcg tablet 00:00: mouth [place] 00 daily. [facility] cyanocobala 2021-0 Yes [id number] 1000ug 1 mL by [facility] min 1,000 4-11 Intramuscu ity of mcg/mL 00:00: lar route [place] injection 00 weekly. [facility] vitamin 2021-0 Yes [id number] 1000ug Take 1 U nivers B-12 1,000 4-11 tablet by ity of mcg tablet 00:00: mouth [place] 00 daily. [facility] cyanocobala 2021-0 Yes [id number] 1000ug 1 mL by [facility] min 1,000 4-11 Intramuscu ity of mcg/mL 00:00: lar route [place] injection 00 weekly. [facility] vitamin 2021-0 Yes [id number] 1000ug Take 1 U nivers B-12 1,000 4-11 tablet by ity of mcg tablet 00:00: mouth [place] 00 daily. [facility] cyanocobala 2021-0 Yes [id number] 1000ug 1 mL by [facility] min 1,000 4-11 Intramuscu ity of mcg/mL 00:00: lar route [place] injection 00 weekly. [facility] vitamin 2021-0 Yes [id number] 1000ug Take 1 U nivers B-12 1,000 4-11 tablet by ity of mcg tablet 00:00: mouth [place] 00 daily. [facility] cyanocobala 2021-0 Yes [id number] 1000ug 1 mL by [facility] min 1,000 4-11 Intramuscu ity of mcg/mL 00:00: lar route [place] injection 00 weekly. [facility] vitamin 2-0 Yes [id number] 1000ug Take 1 U nivers B-12 1,000 4-11 tablet by ity of mcg tablet 00:00: mouth [place] 00 daily. [facility] cyanocobala 2021-0 Yes [id number] 1000ug 1 mL by [facility] min 1,000 4-11 Intramuscu ity of mcg/mL 00:00: lar route [place] injection 00 weekly. [facility] vitamin 2021-0 Yes [id number] 1000ug Take 1 U nivers B-12 1,000 4-11 tablet by ity of mcg tablet 00:00: mouth [place] 00 daily. [facility] cyanocobala 2021-0 Yes [id number] 1000ug 1 mL by [facility] min 1,000 4-11 Intramuscu ity of mcg/mL 00:00: lar route [place] injection 00 weekly. [facility] vitamin 2021-0 Yes [id number] 1000ug Take 1 U nivers B-12 1,000 4-11 tablet by ity of mcg tablet 00:00: mouth [place] 00 daily. [facility] cyanocobala 2021-0 Yes [id number] 1000ug 1 mL by [facility] min 1,000 4-11 Intramuscu ity of mcg/mL 00:00: lar route [place] injection 00 weekly. [facility] vitamin 2021-0 Yes [id number] 1000ug Take 1 U nivers B-12 1,000 4-11 tablet by ity of mcg tablet 00:00: mouth [place] 00 daily. [facility] cyanocobala 2021-0 Yes [id number] 1000ug 1 mL by [facility] min 1,000 4-11 Intramuscu ity of mcg/mL 00:00: lar route [place] injection 00 weekly. [facility] vitamin 2021-0 Yes [id number] 1000ug Take 1 U nivers B-12 1,000 4-11 tablet by ity of mcg tablet 00:00: mouth [place] 00 daily. [facility] cyanocobala 2021-0 Yes [id number] 1000ug 1 mL by [facility] min 1,000 4-11 Intramuscu ity of mcg/mL 00:00: lar route [place] injection 00 weekly. [facility] vitamin 2-0 Yes [id number] 1000ug Take 1 U nivers B-12 1,000 4-11 tablet by ity of mcg tablet 00:00: mouth [place] 00 daily. [facility] cyanocobala 2021-0 Yes [id number] 1000ug 1 mL by [facility] min 1,000 4-11 Intramuscu ity of mcg/mL 00:00: lar route [place] injection 00 weekly. [facility] vitamin 2021-0 Yes [id number] 1000ug Take 1 U nivers B-12 1,000 4-11 tablet by ity of mcg tablet 00:00: mouth [place] 00 daily. [facility] cyanocobala 2021-0 Yes [id number] 1000ug 1 mL by [facility] min 1,000 4-11 Intramuscu ity of mcg/mL 00:00: lar route [place] injection 00 weekly. [facility] vitamin 2021-0 Yes [id number] 1000ug Take 1 U nivers B-12 1,000 4-11 tablet by ity of mcg tablet 00:00: mouth [place] 00 daily. [facility] cyanocobala 2021-0 Yes [id number] 1000ug 1 mL by [facility] min 1,000 4-11 Intramuscu ity of mcg/mL 00:00: lar route [place] injection 00 weekly. [facility] vitamin 2021-0 Yes [id number] 1000ug Take 1 U nivers B-12 1,000 4-11 tablet by ity of mcg tablet 00:00: mouth [place] 00 daily. [facility] cyanocobala 2021-0 Yes [id number] 1000ug 1 mL by [facility] min 1,000 4-11 Intramuscu ity of mcg/mL 00:00: lar route [place] injection 00 weekly. [facility] vitamin 2021-0 Yes [id number] 1000ug Take 1 U nivers B-12 1,000 4-11 tablet by ity of mcg tablet 00:00: mouth [place] 00 daily. [facility] cyanocobala 2021-0 Yes [id number] 1000ug 1 mL by [facility] min 1,000 4-11 Intramuscu ity of mcg/mL 00:00: lar route [place] injection 00 weekly. [facility] vitamin 2021-0 Yes [id number] 1000ug Take 1 U nivers B-12 1,000 4-11 tablet by ity of mcg tablet 00:00: mouth [place] 00 daily. [facility] cyanocobala 2021-0 Yes [id number] 1000ug 1 mL by [facility] min 1,000 4-11 Intramuscu ity of mcg/mL 00:00: lar route [place] injection 00 weekly. [facility] vitamin 2021-0 Yes [id number] 1000ug Take 1 U nivers B-12 1,000 4-11 tablet by ity of mcg tablet 00:00: mouth [place] 00 daily. [facility] cyanocobala 2021-0 Yes [id number] 1000ug 1 mL by [facility] min 1,000 4-11 Intramuscu ity of mcg/mL 00:00: lar route [place] injection 00 weekly. [facility] vitamin 2021-0 Yes [id number] 1000ug Take 1 U nivers B-12 1,000 4-11 tablet by ity of mcg tablet 00:00: mouth [place] 00 daily. [facility] cyanocobala 2021-0 Yes [id number] 1000ug 1 mL by [facility] min 1,000 4-11 Intramuscu ity of mcg/mL 00:00: lar route [place] injection 00 weekly. [facility] Branch losartan 0 Yes 20mg Take 20 mg Uni vers potassium 4-05 by mouth. ity o f (LOSARTAN 09:24: [place] ORAL) [address] [place] [address] FUROSEMIDE 0 Yes 40mg Take 40 mg U nivers ORAL 4-05 by mouth ity of 09:24: daily. [address] losartan 0 Yes 20mg Take 20 mg Uni vers potassium 4-05 by mouth. ity o f (LOSARTAN 09:24: [place] ORAL) [address] [place] [address] FUROSEMIDE 0 Yes 40mg Take 40 mg U nivers ORAL 4-05 by mouth ity of 09:24: daily. [address] losartan 0 Yes 20mg Take 20 mg [facility] vers potassium 4-05 by mouth. ity o f (LOSARTAN 09:24: [place] ORAL) [address] [place] [address] FUROSEMIDE 0 Yes 40mg Take 40 mg U nivers ORAL 4-05 by mouth ity of 09:24: daily. [address] losartan 2021-0 Yes 20mg Take 20 mg [facility] vers potassium 4-05 by mouth. ity o f (LOSARTAN 09:24: [place] ORAL) [address] [place] [address] FUROSEMIDE 0 Yes 40mg Take 40 mg U nivers ORAL 4-05 by mouth ity of 09:24: daily. [address] losartan 2021-0 Yes 20mg Take 20 mg [facility] vers potassium 4-05 by mouth. ity o f (LOSARTAN 09:24: [place] ORAL) [address] [place] [address] FUROSEMIDE 2021-0 Yes 40mg Take 40 mg U nivers ORAL 4-05 by mouth ity of 09:24: daily. [address] losartan 2021-0 Yes 20mg Take 20 mg [facility] vers potassium 4-05 by mouth. ity o f (LOSARTAN 09:24: [place] ORAL) [address] [place] [address] FUROSEMIDE 2021-0 Yes 40mg Take 40 mg U nivers ORAL 4-05 by mouth ity of 09:24: daily. [address] losartan 2021-0 Yes 20mg Take 20 mg [facility] vers potassium 4-05 by mouth. ity o f (LOSARTAN 09:24: [place] ORAL) [address] [place] [address] FUROSEMIDE 0 Yes 40mg Take 40 mg U nivers ORAL 4-05 by mouth ity of 09:24: daily. [address] losartan 2021-0 Yes 20mg Take 20 mg [facility] vers potassium 4-05 by mouth. ity o f (LOSARTAN 09:24: [place] ORAL) [address] [place] [address] FUROSEMIDE 2021-0 Yes 40mg Take 40 mg U nivers ORAL 4-05 by mouth ity of 09:24: daily. [address] losartan 2021-0 Yes 20mg Take 20 mg [facility] vers potassium 4-05 by mouth. ity o f (LOSARTAN 09:24: [place] ORAL) [address] [place] [address] FUROSEMIDE 2021-0 Yes 40mg Take 40 mg U nivers ORAL 4-05 by mouth ity of 09:24: daily. [address] losartan 2021-0 Yes 20mg Take 20 mg [facility] vers potassium 4-05 by mouth. ity o f (LOSARTAN 09:24: [place] ORAL) [address] [place] [address] FUROSEMIDE 2021-0 Yes 40mg Take 40 mg U nivers ORAL 4-05 by mouth ity of 09:24: daily. [address] losartan 2021-0 Yes 20mg Take 20 mg [facility] vers potassium 4-05 by mouth. ity o f (LOSARTAN 09:24: [place] ORAL) [address] [place] [address] FUROSEMIDE 2021-0 Yes 40mg Take 40 mg U nivers ORAL 4-05 by mouth ity of 09:24: daily. [address] losartan 2021-0 Yes 20mg Take 20 mg [facility] vers potassium 4-05 by mouth. ity o f (LOSARTAN 09:24: [place] ORAL) [address] [place] [address] FUROSEMIDE 2022-0 Yes 40mg Take 40 mg U nivers ORAL 4-05 by mouth ity of 09:24: daily. [address] losartan 2021-0 Yes 20mg Take 20 mg [facility] vers potassium 4-05 by mouth. ity o f (LOSARTAN 09:24: [place] ORAL) [address] [place] [address] FUROSEMIDE 0 Yes 40mg Take 40 mg U nivers ORAL 4-05 by mouth ity of 09:24: daily. [address] losartan 2021-0 Yes 20mg Take 20 mg Uni vers potassium 4-05 by mouth. ity o f (LOSARTAN 09:24: [place] ORAL) [address] [place] [address] FUROSEMIDE 0 Yes 40mg Take 40 mg U nivers ORAL 4-05 by mouth ity of 09:24: daily. [address] losartan 0 Yes 20mg Take 20 mg [facility] vers potassium 4-05 by mouth. ity o f (LOSARTAN 09:24: [place] ORAL) [address] [place] [address] FUROSEMIDE 0 Yes 40mg Take 40 mg U nivers ORAL 4-05 by mouth ity of 09:24: daily. [address] losartan 2021-0 Yes 20mg Take 20 mg [facility] vers potassium 4-05 by mouth. ity o f (LOSARTAN 09:24: [place] ORAL) [address] [place] [address] FUROSEMIDE 0 Yes 40mg Take 40 mg U nivers ORAL 4-05 by mouth ity of 09:24: daily. [address] losartan 2021-0 Yes 20mg Take 20 mg [facility] vers potassium 4-05 by mouth. ity o f (LOSARTAN 09:24: [place] ORAL) [address] [place] [address] FUROSEMIDE 0 Yes 40mg Take 40 mg U nivers ORAL 4-05 by mouth ity of 09:24: daily. [address] losartan 2021-0 Yes 20mg Take 20 mg Uni vers potassium 4-05 by mouth. ity o f (LOSARTAN 09:24: [place] ORAL) [address] [place] [address] FUROSEMIDE 2021-0 Yes 40mg Take 40 mg U nivers ORAL 4-05 by mouth ity of 09:24: daily. [address] losartan 2021-0 Yes 20mg Take 20 mg [facility] vers potassium 4-05 by mouth. ity o f (LOSARTAN 09:24: [place] ORAL) [address] [place] [address] FUROSEMIDE 2021-0 Yes 40mg Take 40 mg U nivers ORAL 4-05 by mouth ity of 09:24: daily. [address] losartan 2021-0 Yes 20mg Take 20 mg [facility] vers potassium 4-05 by mouth. ity o f (LOSARTAN 09:24: [place] ORAL) [address] [place] [address] FUROSEMIDE 2021-0 Yes 40mg Take 40 mg U nivers ORAL 4-05 by mouth ity of 09:24: daily. [address] losartan 2021-0 Yes 20mg Take 20 mg [facility] vers potassium 4-05 by mouth. ity o f (LOSARTAN 09:24: [place] ORAL) [address] [place] [address] FUROSEMIDE 2021-0 Yes 40mg Take 40 mg U nivers ORAL 4-05 by mouth ity of 09:24: daily. [address] losartan 2021-0 Yes 20mg Take 20 mg [facility] vers potassium 4-05 by mouth. ity o f (LOSARTAN 09:24: [place] ORAL) [address] [place] [address] FUROSEMIDE 0 Yes 40mg Take 40 mg U nivers ORAL 4-05 by mouth ity of 09:24: daily. [address] losartan 2021-0 Yes 20mg Take 20 mg [facility] vers potassium 4-05 by mouth. ity o f (LOSARTAN 09:24: [place] ORAL) [address] [place] [address] FUROSEMIDE 2021-0 Yes 40mg Take 40 mg U nivers ORAL 4-05 by mouth ity of 09:24: daily. [address] losartan 2021-0 Yes 20mg Take 20 mg [facility] vers potassium 4-05 by mouth. ity o f (LOSARTAN 09:24: [place] ORAL) [address] [place] [address] FUROSEMIDE 2021-0 Yes 40mg Take 40 mg U nivers ORAL 4-05 by mouth ity of 09:24: daily. [address] losartan 2021-0 Yes 20mg Take 20 mg [facility] vers potassium 4-05 by mouth. ity o f (LOSARTAN 09:24: [place] ORAL) [address] [place] [address] FUROSEMIDE 2021-0 Yes 40mg Take 40 mg U nivers ORAL 4-05 by mouth ity of 09:24: daily. [address] losartan 2021-0 Yes 20mg Take 20 mg [facility] vers potassium 4-05 by mouth. ity o f (LOSARTAN 09:24: [place] ORAL) [address] [place] [address] FUROSEMIDE 2021-0 Yes 40mg Take 40 mg U nivers ORAL 4-05 by mouth ity of 09:24: daily. [address] losartan 2022-0 Yes 20mg Take 20 mg [facility] vers potassium 4-05 by mouth. ity o f (LOSARTAN 09:24: [place] ORAL) [address] FUROSEMIDE Yes 40mg Take 40 mg U nivers ORAL 4-05 by mouth ity of 09:24: daily. [address] losartan Yes 20mg Take 20 mg [facility] vers potassium 4-05 by mouth. ity o f (LOSARTAN 09:24: [place] ORAL) [address] [facility] FUROSEMIDE Yes 40mg Take 40 mg U nivers ORAL 4-05 by mouth ity of 09:24: daily. [address] Branch losartan Yes 20mg Take 20 mg [facility] vers potassium 4-05 by mouth. ity o f (LOSARTAN 09:24: [place] ORAL) [address] [place] [address] FUROSEMIDE Yes 40mg Take 40 mg U nivers ORAL 4-05 by mouth ity of 09:24: daily. [address] losartan Yes 20mg Take 20 mg [facility] vers potassium 4-05 by mouth. ity o f (LOSARTAN 09:24: [place] ORAL) [address] [facility] losartan Yes 20mg Take 20 mg Uni vers potassium 4-05 by mouth. ity o f (LOSARTAN 09:24: [place] ORAL) [address] [place] [id number] Branch losartan Yes 20mg Take 20 mg [facility] vers potassium 4-05 by mouth. ity o f (LOSARTAN 09:24: [place] ORAL) [address] [place] [address] losartan Yes 20mg Take 20 mg [facility] vers potassium 4-05 by mouth. ity o f (LOSARTAN 09:24: [place] ORAL) 36 [facility] Branch losartan Yes 20mg Take 20 mg [facility] vers potassium 4-05 by mouth. ity o f (LOSARTAN 09:24: [place] ORAL) [address] [place] [address] losartan Yes 20mg Take 20 mg [facility] vers potassium 4-05 by mouth. ity o f (LOSARTAN 09:24: [place] ORAL) 36 [facility] Branch losartan Yes 20mg Take 20 mg [facility] vers potassium 4-05 by mouth. ity o f (LOSARTAN 09:24: [place] ORAL) [address] [place] [address] losartan Yes 20mg Take 20 mg [facility] vers potassium 4-05 by mouth. ity o f (LOSARTAN 09:24: [place] ORAL) [address] [place] [address] losartan 2022-0 Yes 20mg Take 20 mg [...] 09:24: [place] ORAL) 36 [facility] losartan 0 Yes 20mg Take 20 mg [facility] vers potassium 4-05 by mouth. ity o f (LOSARTAN 09:24: [place] ORAL) 36 [facility] losartan 0 Yes 20mg Take [...] (LOSARTAN 09:24: [place] ORAL) 36 [facility] gabapentin Yes [id number] 300mg Take 1 [facility] 300 mg 4-05 capsule by ity of capsule 00:00: mouth 3 [place] 00 (three) Medical times Branch daily. rizatriptan Yes [id number] 5mg Take 1 [facility] 5 mg 4-05 tablet by ity of disintegrat 00:00: mouth [place] ing tablet 00 needed for Med ical Migraine Branch (Take 5mg at the beginning of the headache can repeat 2h after if headaches persists). May repeat in 2 hours if needed magnesium 2021-0 Yes [id number] 400mg Take 2 [facility] gluconate 4-05 tablets by ity of 200 mg 00:00: mouth 2 [place] tablet 00 (two) Medical times Branch daily. gabapentin 2021-0 Yes [id number] 300mg Take 1 [facility] 300 mg 4-05 capsule by ity of capsule 00:00: mouth 3 [place] 00 (three) Medical times Branch daily. rizatriptan 2021-0 Yes [id number] 5mg Take 1 [facility] 5 mg 4-05 tablet by ity of disintegrat 00:00: mouth [place] tablet 00 needed for Med ical Migraine Branch (Take 5mg at the beginning of the headache can repeat 2h after if headaches persists). May repeat in 2 hours if needed magnesium 2022-0 Yes [id number] 400mg Take 2 [facility] gluconate 4-05 tablets by ity of 200 mg 00:00: mouth 2 [place] tablet 00 (two) Medical times Branch daily. gabapentin 2022-0 Yes [id number] 300mg Take 1 [facility] 300 mg 4-05 capsule by ity of capsule 00:00: mouth 3 [place] 00 (three) Medical times Branch daily. rizatriptan 2022-0 Yes [id number] 5mg Take 1 [facility] 5 mg 4-05 tablet by ity of disintegrat 00:00: mouth [place] tablet 00 needed for Med ical Migraine Branch (Take 5mg at the beginning of the headache can repeat 2h after if headaches persists). May repeat in 2 hours if needed magnesium 2022-0 Yes [id number] 400mg Take 2 Univers gluconate 4-05 tablets by [facility] 200 mg 00:00: mouth 2 [place] tablet 00 (two) [facility] times [facility] daily. gabapentin 2022-0 Yes [id number] 300mg Take 1 [facility] 300 [facility] 4-05 capsule by [facility] capsule 00:00: mouth 3 [place] 00 (three) [facility] times [facility] daily. rizatriptan 2022-0 Yes [id number] 5mg Take 1 [facility] 5 mg 4-05 tablet by [facility] disintegrat 00:00: mouth as [place] ing tablet 00 needed for [facility] Mig[facility] (Take 5mg at the beginning of the headache can repeat 2h after if headaches persists). May repeat in 2 hours if needed magnesium 2022-0 Yes [id number] 400mg Take 2 [facility] gluconate 4-05 tablets by [facility] 200 mg 00:00: mouth 2 [place] tablet 00 (two) [facility] times [facility] daily. gabapentin 2022-0 Yes [id number] 300mg Take 1 [facility] 300 mg 4-05 capsule by [facility] capsule 00:00: mouth 3 [place] 00 (three) [facility] times [facility] daily. rizatriptan 2022-0 Yes [id number] 5mg Take 1 [facility] 5 mg 4-05 tablet by [facility] disintegrat 00:00: mouth as [place] ing tablet 00 needed for [facility] (Take 5mg at the beginning of the headache can repeat 2h after if headaches persists). May repeat in 2 hours if needed magnesium 2022-0 Yes [id number] 400mg Take 2 [facility] gluconate 4-05 tablets by [facility] 200 mg 00:00: mouth 2 [place] tablet 00 (two) [facility] times [facility] daily. gabapentin 2022-0 Yes [id number] 300mg Take 1 [facility] 300 mg 4-05 capsule by [facility] capsule 00:00: mouth 3 [place] (three) [facility] times [facility] daily. rizatriptan 2022-0 Yes [id number] 5mg Take 1 [facility] 5 mg 4-05 tablet by [facility] disintegrat 00:00: mouth as [place] ing tablet 00 needed for [facility] (Take 5mg at the beginning of the headache can repeat 2h after if headaches persists). May repeat in 2 hours if needed magnesium 2022-0 Yes [id number] 400mg Take 2 [facility] gluconate 4-05 tablets by [facility] 200 mg 00:00: mouth 2 [place] tablet 00 (two) [facility] times [facility] daily. gabapentin 2022-0 Yes [id number] 300mg Take 1 [facility] 300 mg 4-05 capsule by [facility] capsule 00:00: mouth 3 (three) [facility] times [facility] daily. rizatriptan 2022-0 Yes [id number] 5mg Take 1 [facility] 5 mg 4-05 tablet by [facility] disintegrat 00:00: mouth as [place] ing tablet 00 needed for [facility] (Take 5mg at the beginning of the headache can repeat 2h after if headaches persists). May repeat in 2 hours if needed magnesium 2022-0 Yes [id number] 400mg Take 2 [facility] gluconate 4-05 tablets by [facility] 200 mg 00:00: mouth 2 [place] tablet 00 (two) [facility] times [facility] daily. gabapentin 2022-0 Yes [id number] 300mg Take 1 [facility] 300 mg 4-05 capsule by [facility] capsule 00:00: mouth 3 [place] 00 (three) [facility] times [facility] daily. rizatriptan 2022-0 Yes [id number] 5mg Take 1 [facility] 5 mg 4-05 tablet by [facility] disintegrat 00:00: mouth as [place] ing tablet 00 needed for [facility] (Take 5mg at the beginning of the headache can repeat 2h after if headaches persists). May repeat in 2 hours if needed magnesium 2022-0 Yes [id number] 400mg Take 2 [facility] gluconate 4-05 tablets by [facility] 200 mg 00:00: mouth 2 [place] tablet 00 (two) [facility] times [facility] daily. gabapentin 2022-0 Yes [id number] 300mg Take 1 [facility] 300 mg 4-05 capsule by [facility] capsule 00:00: mouth 3 [place] 00 (three) [facility] times [facility] daily. rizatriptan 2022-0 Yes [id number] 5mg Take 1 [facility] 5 mg 4-05 tablet by [facility] disintegrat 00:00: mouth as [place] ing tablet 00 needed for [facility] (Take 5mg at the beginning of the headache can repeat 2h after if headaches persists). May repeat in 2 hours if needed magnesium 2022-0 Yes [id number] 400mg Take 2 [facility] gluconate 4-05 tablets by [facility] 200 mg 00:00: mouth 2 [place] tablet 00 (two) [facility] times [facility] daily. gabapentin 2022-0 Yes [id number] 300mg Take 1 [facility] 300 mg 4-05 capsule by [facility] capsule 00:00: mouth 3 [place] 00 (three) [facility] times [facility] daily. rizatriptan 2022-0 Yes [id number] 5mg Take 1 [facility] 5 mg 4-05 tablet by [facility] disintegrat 00:00: mouth as [place] ing tablet 00 needed for [facility] (Take 5mg at the beginning of the headache can repeat 2h after if headaches persists). May repeat in 2 hours if needed magnesium 2022-0 Yes [id number] 400mg Take 2 [facility] gluconate 4-05 tablets by [facility] 200 mg 00:00: mouth 2 [place] tablet 00 (two) [facility] times [facility] daily. gabapentin 2022-0 Yes [id number] 300mg Take 1 [facility] 300 mg 4-05 capsule by [facility] capsule 00:00: mouth 3 [place] 00 (three) [facility] times [facility] daily. rizatriptan 2022-0 Yes [id number] 5mg Take 1 [facility] 5 mg 4-05 tablet by [facility] disintegrat 00:00: mouth as [place] ing tablet 00 needed for [facility] (Take 5mg at the beginning of the headache can repeat 2h after if headaches persists). May repeat in 2 hours if needed magnesium 2022-0 Yes [id number] 400mg Take 2 [facility] gluconate 4-05 tablets by [facility] 200 mg 00:00: mouth 2 [place] tablet 00 (two) [facility] times [facility] daily. gabapentin 2022-0 Yes [id number] 300mg Take 1 [facility] 300 mg 4-05 capsule by [facility] capsule 00:00: mouth 3 [place] 00 (three) [facility] times [facility] daily. rizatriptan 2022-0 Yes [id number] 5mg Take 1 [facility] 5 mg 4-05 tablet by [facility] disintegrat 00:00: mouth as [place] ing tablet 00 needed for [facility] (Take 5mg at the beginning of the headache can repeat 2h after if headaches persists). May repeat in 2 hours if needed magnesium 2022-0 Yes [id number] 400mg Take 2 [facility] gluconate 4-05 tablets by [facility] 200 mg 00:00: mouth 2 [place] tablet 00 (two) [facility] times [facility] daily. gabapentin 2022-0 Yes [id number] 300mg Take 1 [facility] 300 mg 4-05 capsule by [facility] capsule 00:00: mouth 3 [place] 00 (three) [facility] times [facility] daily. rizatriptan 2022-0 Yes [id number] 5mg Take 1 [facility] 5 mg 4-05 tablet by [facility] disintegrat 00:00: mouth as [place] ing tablet 00 needed for [facility] (Take 5mg at the beginning of the headache can repeat 2h after if headaches persists). May repeat in 2 hours if needed magnesium 2022-0 Yes [id number] 400mg Take 2 [facility] gluconate 4-05 tablets by [facility] 200 mg 00:00: mouth 2 [place] tablet 00 (two) [facility] times [facility] daily. gabapentin 2022-0 Yes [id number] 300mg Take 1 [facility] 300 mg 4-05 capsule by [facility] capsule 00:00: mouth 3 [place] 00 (three) [facility] times [facility] daily. rizatriptan 2022-0 Yes [id number] 5mg Take 1 [facility] 5 mg 4-05 tablet by [facility] disintegrat 00:00: mouth as [place] ing tablet 00 needed for [facility] (Take 5mg at the beginning of the headache can repeat 2h after if headaches persists). May repeat in 2 hours if needed magnesium 2022-0 Yes [id number] 400mg Take 2 [facility] gluconate 4-05 tablets by [facility] 200 mg 00:00: mouth 2 [place] tablet 00 (two) [facility] times [facility] daily. gabapentin 2022-0 Yes [id number] 300mg Take 1 [facility] 300 mg 4-05 capsule by [facility] capsule 00:00: mouth 3 [place] 00 (three) [facility] times [facility] daily. rizatriptan 2022-0 Yes [id number] 5mg Take 1 [facility] 5 mg 4-05 tablet by [facility] disintegrat 00:00: mouth as [place] ing tablet 00 needed for [facility] Mig[facility] (Take 5mg at the beginning of the headache can repeat 2h after if headaches persists). May repeat in 2 hours if needed magnesium 2022-0 Yes [id number] 400mg Take 2 [facility] gluconate 4-05 tablets by [facility] 200 mg 00:00: mouth 2 [place] tablet 00 (two) [facility] times [facility] daily. gabapentin 2-0 Yes [id number] 300mg Take 1 [facility] 300 mg 4-05 capsule by [facility] capsule 00:00: mouth 3 [place] (three) [facility] times [facility] daily. rizatriptan 2022-0 Yes [id number] 5mg Take 1 [facility] 5 mg 4-05 tablet by [facility] disintegrat 00:00: mouth as [place] ing tablet 00 needed for [facility] Mig[facility] (Take 5mg at the beginning of the headache can repeat 2h after if headaches persists). May repeat in 2 hours if needed magnesium 2022-0 Yes [id number] 400mg Take 2 [facility] gluconate 4-05 tablets by [facility] 200 mg 00:00: mouth 2 [place] tablet 00 (two) [facility] times [facility] daily. gabapentin 2022-0 Yes [id number] 300mg Take 1 [facility] 300 mg 4-05 capsule by [facility] capsule 00:00: mouth 3 [place] 00 (three) [facility] times [facility] daily. rizatriptan 2022-0 Yes [id number] 5mg Take 1 [facility] 5 mg 4-05 tablet by [facility] disintegrat 00:00: mouth as [place] ing tablet 00 needed for [facility] Mig[facility] (Take 5mg at the beginning of the headache can repeat 2h after if headaches persists). May repeat in 2 hours if needed magnesium 2022-0 Yes [id number] 400mg Take 2 [facility] gluconate 4-05 tablets by [facility] 200 mg 00:00: mouth 2 [place] tablet 00 (two) [facility] times [facility] daily. gabapentin 2022-0 Yes [id number] 300mg Take 1 [facility] 300 mg 4-05 capsule by [facility] capsule 00:00: mouth 3 [place] (three) [facility] times [facility] daily. rizatriptan 2022-0 Yes [id number] 5mg Take 1 [facility] 5 mg 4-05 tablet by [facility] disintegrat 00:00: mouth as [place] ing tablet 00 needed for [facility] Mig[facility] (Take 5mg at the beginning of the headache can repeat 2h after if headaches persists). May repeat in 2 hours if needed magnesium 2022-0 Yes [id number] 400mg Take 2 [facility] gluconate 4-05 tablets by [facility] 200 mg 00:00: mouth 2 [place] tablet 00 (two) [facility] times [facility] daily. gabapentin 2022-0 Yes [id number] 300mg Take 1 [facility] 300 mg 4-05 capsule by [facility] capsule 00:00: mouth 3 (three) [facility] times [facility] daily. rizatriptan 2022-0 Yes [id number] 5mg Take 1 [facility] 5 mg 4-05 tablet by [facility] disintegrat 00:00: mouth as [place] ing tablet 00 needed for [facility] Mig[facility] (Take 5mg at the beginning of the headache can repeat 2h after if headaches persists). May repeat in 2 hours if needed magnesium 2022-0 Yes [id number] 400mg Take 2 [facility] gluconate 4-05 tablets by [facility] 200 mg 00:00: mouth 2 [place] tablet 00 (two) [facility] times [facility] daily. gabapentin 2022-0 Yes [id number] 300mg Take 1 [facility] 300 mg 4-05 capsule by [facility] capsule 00:00: mouth 3 [place] (three) [facility] times [facility] daily. rizatriptan 2022-0 Yes [id number] 5mg Take 1 [facility] 5 mg 4-05 tablet by [facility] disintegrat 00:00: mouth as [place] ing tablet 00 needed for [facility] Mig[facility] (Take 5mg at the beginning of the headache can repeat 2h after if headaches persists). May repeat in 2 hours if needed magnesium 2022-0 Yes [id number] 400mg Take 2 [facility] gluconate 4-05 tablets by [facility] of 200 mg 00:00: mouth 2 [place] tablet 00 (two) [facility] times [facility] daily. gabapentin 2022-0 Yes [id number] 300mg Take 1 [facility] 300 mg 4-05 capsule by [facility] capsule 00:00: mouth 3 [place] 00 (three) [facility] times [facility] daily. rizatriptan 2022-0 Yes [id number] 5mg Take 1 [facility] 5 mg 4-05 tablet by [facility] disintegrat 00:00: mouth as [place] ing tablet 00 needed for [facility] Mig[facility] (Take 5mg at the beginning of the headache can repeat 2h after if headaches persists). May repeat in 2 hours if needed magnesium 2022-0 Yes [id number] 400mg Take 2 [facility] gluconate 4-05 tablets by [facility] 200 mg 00:00: mouth 2 [place] tablet 00 (two) [facility] times [facility] daily. gabapentin 2022-0 Yes [id number] 300mg Take 1 [facility] 300 mg 4-05 capsule by [facility] capsule 00:00: mouth 3 [place] 00 (three) [facility] times [facility] daily. rizatriptan 2022-0 Yes [id number] 5mg Take 1 [facility] 5 mg 4-05 tablet by [facility] disintegrat 00:00: mouth as [place] ing tablet 00 needed for [facility] Migraine [facility] (Take 5mg at the beginning of the headache can repeat 2h after if headaches persists). May repeat in 2 hours if needed magnesium 2022-0 Yes [id number] 400mg Take 2 [facility] gluconate 4-05 tablets by [facility] of 200 mg 00:00: mouth 2 [place] tablet 00 (two) [facility] times [facility] daily. gabapentin 2022-0 Yes [id number] 300mg Take 1 [facility] 300 mg 4-05 capsule by [facility] capsule 00:00: mouth 3 [place] 00 (three) [facility] times [facility] daily. rizatriptan 2022-0 Yes [id number] 5mg Take 1 [facility] 5 mg 4-05 tablet by [facility] disintegrat 00:00: mouth as [place] ing tablet 00 needed for [facility] Migraine [facility] (Take 5mg at the beginning of the headache can repeat 2h after if headaches persists). May repeat in 2 hours if needed magnesium 2022-0 Yes [id number] 400mg Take 2 [facility] gluconate 4-05 tablets by [facility] of 200 mg 00:00: mouth 2 [place] tablet 00 (two) [facility] times [facility] daily. gabapentin 2022-0 Yes [id number] 300mg Take 1 [facility] 300 mg 4-05 capsule by [facility] capsule 00:00: mouth 3 [place] 00 (three) [facility] times [facility] daily. rizatriptan 2022-0 Yes [id number] 5mg Take 1 [facility] 5 mg 4-05 tablet by [facility] disintegrat 00:00: mouth as [place] ing tablet 00 needed for [facility] Migraine [facility] (Take 5mg at the beginning of the headache can repeat 2h after if headaches persists). May repeat in 2 hours if needed magnesium 2022-0 Yes [id number] 400mg Take 2 [facility] gluconate 4-05 tablets by [facility] of 200 mg 00:00: mouth 2 [place] tablet 00 (two) [facility] times [facility] daily. gabapentin 2022-0 Yes [id number] 300mg Take 1 [facility] 300 mg 4-05 capsule by [facility] capsule 00:00: mouth 3 [place] (three) [facility] times [facility] daily. rizatriptan 2022-0 Yes [id number] 5mg Take 1 [facility] 5 mg 4-05 tablet by [facility] disintegrat 00:00: mouth as [place] ing tablet 00 needed for [facility] Migraine [facility] (Take 5mg at the beginning of the headache can repeat 2h after if headaches persists). May repeat in 2 hours if needed magnesium 2022-0 Yes [id number] 400mg Take 2 [facility] gluconate 4-05 tablets by [facility] of 200 mg 00:00: mouth 2 [place] tablet 00 (two) [facility] times [facility] daily. gabapentin 2022-0 Yes [id number] 300mg Take 1 [facility] 300 mg 4-05 capsule by [facility] capsule 00:00: mouth 3 (three) [facility] times [facility] daily. rizatriptan 2022-0 Yes [id number] 5mg Take 1 [facility] 5 mg 4-05 tablet by [facility] disintegrat 00:00: mouth as [place] ing tablet 00 needed for [facility] Mig[facility] (Take 5mg at the beginning of the headache can repeat 2h after if headaches persists). May repeat in 2 hours if needed magnesium 2022-0 Yes [id number] 400mg Take 2 [facility] gluconate 4-05 tablets by [facility] of 200 mg 00:00: mouth 2 [place] tablet 00 (two) [facility] times [facility] daily. gabapentin 2022-0 Yes [id number] 300mg Take 1 [facility] 300 mg 4-05 capsule by [facility] capsule 00:00: mouth 3 [place] 00 (three) [facility] times [facility] daily. rizatriptan 2022-0 Yes [id number] 5mg Take 1 [facility] 5 mg 4-05 tablet by [facility] disintegrat 00:00: mouth as [place] ing tablet 00 needed for [facility] Migraine [facility] (Take 5mg at the beginning of the headache can repeat 2h after if headaches persists). May repeat in 2 hours if needed magnesium 2022-0 Yes [id number] 400mg Take 2 [facility] gluconate 4-05 tablets by [facility] of 200 mg 00:00: mouth 2 [place] tablet 00 (two) [facility] times [facility] daily. gabapentin 2022-0 Yes [id number] 300mg Take 1 [facility] 300 mg 4-05 capsule by [facility] capsule 00:00: mouth 3 (three) [facility] times [facility] daily. rizatriptan 2022-0 Yes [id number] 5mg Take 1 [facility] 5 mg 4-05 tablet by [facility] disintegrat 00:00: mouth as [place] ing tablet 00 needed for [facility] Mig[facility] (Take 5mg at the beginning of the headache can repeat 2h after if headaches persists). May repeat in 2 hours if needed magnesium 2022-0 Yes [id number] 400mg Take 2 [facility] gluconate 4-05 tablets by [facility] of 200 mg 00:00: mouth 2 [place] tablet 00 (two) [facility] times [facility] daily. gabapentin 2022-0 Yes [id number] 300mg Take 1 [facility] 300 mg 4-05 capsule by [facility] capsule 00:00: mouth 3 (three) [facility] times [facility] daily. rizatriptan 2022-0 Yes [id number] 5mg Take 1 [facility] 5 mg 4-05 tablet by [facility] disintegrat 00:00: mouth as [place] ing tablet 00 needed for [facility] Mig[facility] (Take 5mg at the beginning of the headache can repeat 2h after if headaches persists). May repeat in 2 hours if needed magnesium 2022-0 Yes [id number] 400mg Take 2 [facility] gluconate 4-05 tablets by [facility] of 200 mg 00:00: mouth 2 [place] tablet 00 (two) [facility] times [facility] daily. gabapentin 2022-0 Yes [id number] 300mg Take 1 [facility] 300 mg 4-05 capsule by [facility] capsule 00:00: mouth 3 [place] (three) [facility] times [facility] daily. rizatriptan 2022-0 Yes [id number] 5mg Take 1 [facility] 5 mg 4-05 tablet by [facility] disintegrat 00:00: mouth as [place] ing tablet 00 needed for [facility] Migraine [facility] (Take 5mg at the beginning of the headache can repeat 2h after if headaches persists). May repeat in 2 hours if needed magnesium 2022-0 Yes [id number] 400mg Take 2 [facility] gluconate 4-05 tablets by [facility] of 200 mg 00:00: mouth 2 [place] tablet 00 (two) [facility] times [facility] daily. gabapentin 2022-0 Yes [id number] 300mg Take 1 [facility] 300 mg 4-05 capsule by [facility] of capsule 00:00: mouth 3 [place] 00 (three) [facility] times [facility] daily. rizatriptan 2022-0 Yes [id number] 5mg Take 1 [facility] 5 mg 4-05 tablet by [facility] disintegrat 00:00: mouth as [place] ing tablet 00 needed for [facility] Migraine [facility] (Take 5mg at the beginning of the headache can repeat 2h after if headaches persists). May repeat in 2 hours if needed magnesium 2022-0 Yes [id number] 400mg Take 2 [facility] gluconate 4-05 tablets by [facility] of 200 mg 00:00: mouth 2 [place] tablet 00 (two) [facility] times [facility] daily. gabapentin 2022-0 Yes [id number] 300mg Take 1 [facility] 300 mg 4-05 capsule by [facility] of capsule 00:00: mouth 3 [place] 00 (three) [facility] times [facility] daily. rizatriptan 2022-0 Yes [id number] 5mg Take 1 [facility] 5 mg 4-05 tablet by [facility] disintegrat 00:00: mouth as [place] ing tablet 00 needed for [facility] Mig[facility] (Take 5mg at the beginning of the headache can repeat 2h after if headaches persists). May repeat in 2 hours if needed magnesium 2022-0 Yes [id number] 400mg Take 2 [facility] gluconate 4-05 tablets by [facility] of 200 mg 00:00: mouth 2 [place] tablet 00 (two) [facility] times [facility] daily. gabapentin 2022-0 Yes [id number] 300mg Take 1 [facility] 300 mg 4-05 capsule by [facility] of capsule 00:00: mouth 3 [place] 00 (three) [facility] times [facility] daily. rizatriptan 2022-0 Yes [id number] 5mg Take 1 [facility] 5 mg 4-05 tablet by [facility] disintegrat 00:00: mouth as [place] ing tablet 00 needed for [facility] Mig[facility] (Take 5mg at the beginning of the headache can repeat 2h after if headaches persists). May repeat in 2 hours if needed magnesium 2022-0 Yes [id number] 400mg Take 2 [facility] gluconate 4-05 tablets by [facility] of 200 mg 00:00: mouth 2 [place] tablet 00 (two) [facility] times [facility] daily. gabapentin 2022-0 Yes [id number] 300mg Take 1 [facility] 300 mg 4-05 capsule by [facility] of capsule 00:00: mouth 3 [place] 00 (three) [facility] times [facility] daily. rizatriptan 2022-0 Yes [id number] 5mg Take 1 [facility] 5 mg 4-05 tablet by [facility] disintegrat 00:00: mouth as [place] ing tablet 00 needed for [facility] Mig[facility] (Take 5mg at the beginning of the headache can repeat 2h after if headaches persists). May repeat in 2 hours if needed magnesium 2022-0 Yes [id number] 400mg Take 2 [facility] gluconate 4-05 tablets by [facility] of 200 mg 00:00: mouth 2 [place] tablet 00 (two) [facility] times [facility] daily. gabapentin 2022-0 Yes [id number] 300mg Take 1 [facility] 300 mg 4-05 capsule by [facility] of capsule 00:00: mouth 3 (three) [facility] times [facility] daily. rizatriptan 2022-0 Yes [id number] 5mg Take 1 [facility] 5 mg 4-05 tablet by [facility] disintegrat 00:00: mouth as [place] ing tablet 00 needed for [facility] Mig[facility] (Take 5mg at the beginning of the headache can repeat 2h after if headaches persists). May repeat in 2 hours if needed magnesium 2022-0 Yes [id number] 400mg Take 2 [facility] gluconate 4-05 tablets by [facility] of 200 mg 00:00: mouth 2 [place] tablet 00 (two) [facility] times [facility] daily. gabapentin 2022-0 Yes [id number] 300mg Take 1 [facility] 300 mg 4-05 capsule by [facility] of capsule 00:00: mouth 3 [place] 00 (three) [facility] times [facility] daily. rizatriptan 2022-0 Yes [id number] 5mg Take 1 [facility] 5 mg 4-05 tablet by [facility] disintegrat 00:00: mouth as [place] ing tablet 00 needed for [facility] Mig[facility] (Take 5mg at the beginning of the headache can repeat 2h after if headaches persists). May repeat in 2 hours if needed magnesium 2022-0 Yes [id number] 400mg Take 2 [facility] gluconate 4-05 tablets by [facility] of 200 mg 00:00: mouth 2 [place] tablet 00 (two) [facility] times [facility] daily. gabapentin 2022-0 Yes [id number] 300mg Take 1 [facility] 300 mg 4-05 capsule by [facility] of capsule 00:00: mouth 3 [place] 00 (three) [facility] times [facility] daily. rizatriptan 2022-0 Yes [id number] 5mg Take 1 [facility] 5 mg 4-05 tablet by [facility] disintegrat 00:00: mouth as [place] ing tablet 00 needed for [facility] Mig[facility] (Take 5mg at the beginning of the headache can repeat 2h after if headaches persists). May repeat in 2 hours if needed magnesium 2022-0 Yes [id number] 400mg Take 2 [facility] gluconate 4-05 tablets by [facility] of 200 mg 00:00: mouth 2 [place] tablet 00 (two) [facility] times [facility] daily. gabapentin 2022-0 Yes [id number] 300mg Take 1 [facility] 300 mg 4-05 capsule by [facility] of capsule 00:00: mouth 3 (three) [facility] times [facility] daily. rizatriptan 2022-0 Yes [id number] 5mg Take 1 [facility] 5 mg 4-05 tablet by [facility] disintegrat 00:00: mouth as [place] ing tablet 00 needed for [facility] (Take 5mg at the beginning of the headache can repeat 2h after if headaches persists). May repeat in 2 hours if needed magnesium 2022-0 Yes [id number] 400mg Take 2 [facility] gluconate 4-05 tablets by [facility] of 200 mg 00:00: mouth 2 [place] tablet 00 (two) [facility] times [facility] daily. gabapentin 2022-0 Yes [id number] 300mg Take 1 [facility] 300 mg 4-05 capsule by [facility] capsule 00:00: mouth 3 [place] (three) [facility] times [facility] daily. rizatriptan 2022-0 Yes [id number] 5mg Take 1 [facility] 5 mg 4-05 tablet by [facility] disintegrat 00:00: mouth as [place] ing tablet 00 needed for [facility] (Take 5mg at the beginning of the headache can repeat 2h after if headaches persists). May repeat in 2 hours if needed magnesium 2022-0 Yes [id number] 400mg Take 2 [facility] gluconate 4-05 tablets by [facility] of 200 mg 00:00: mouth 2 [place] tablet 00 (two) [facility] times [facility] daily. gabapentin 2022-0 Yes [id number] 300mg Take 1 [facility] 300 mg 4-05 capsule by [facility] capsule 00:00: mouth 3 [place] 00 (three) [facility] times [facility] daily. rizatriptan 2022-0 Yes [id number] 5mg Take 1 [facility] 5 mg 4-05 tablet by [facility] disintegrat 00:00: mouth as [place] ing tablet 00 needed for [facility] (Take 5mg at the beginning of the headache can repeat 2h after if headaches persists). May repeat in 2 hours if needed magnesium 2022-0 Yes [id number] 400mg Take 2 [facility] gluconate 4-05 tablets by [facility] of 200 mg 00:00: mouth 2 [place] tablet 00 (two) [facility] times [facility] daily. gabapentin 2022-0 Yes [id number] 300mg Take 1 [facility] 300 mg 4-05 capsule by [facility] of capsule 00:00: mouth 3 [place] 00 (three) [facility] times [facility] daily. rizatriptan 2022-0 Yes [id number] 5mg Take 1 [facility] 5 mg 4-05 tablet by [facility] disintegrat 00:00: mouth as [place] ing tablet 00 needed for [facility] (Take 5mg at the beginning of the headache can repeat 2h after if headaches persists). May repeat in 2 hours if needed magnesium 2022-0 Yes [id number] 400mg Take 2 [facility] gluconate 4-05 tablets by [facility] of 200 mg 00:00: mouth 2 [place] tablet 00 (two) [facility] times [facility] daily. gabapentin 2022-0 Yes [id number] 300mg Take 1 [facility] 300 mg 4-05 capsule by [facility] of capsule 00:00: mouth 3 [place] 00 (three) [facility] times [facility] daily. rizatriptan 2022-0 Yes [id number] 5mg Take 1 [facility] 5 mg 4-05 tablet by [facility] disintegrat 00:00: mouth as [place] ing tablet 00 needed for [facility] (Take 5mg at the beginning of the headache can repeat 2h after if headaches persists). May repeat in 2 hours if needed magnesium 2022-0 Yes [id number] 400mg Take 2 [facility] gluconate 4-05 tablets by [facility] of 200 mg 00:00: mouth 2 [place] tablet 00 (two) [facility] times [facility] daily. gabapentin 2022-0 Yes [id number] 300mg Take 1 [facility] 300 mg 4-05 capsule by [facility] of capsule 00:00: mouth 3 [place] 00 (three) [facility] times [facility] daily. rizatriptan 2022-0 Yes [id number] 5mg Take 1 [facility] 5 mg 4-05 tablet by [facility] disintegrat 00:00: mouth as [place] ing tablet 00 needed for [facility] (Take 5mg at the beginning of the headache can repeat 2h after if headaches persists). May repeat in 2 hours if needed magnesium 2022-0 Yes [id number] 400mg Take 2 [facility] gluconate 4-05 tablets by [facility] of 200 mg 00:00: mouth 2 [place] tablet 00 (two) [facility] times [facility] daily. gabapentin 2022-0 Yes [id number] 300mg Take 1 [facility] 300 mg 4-05 capsule by [facility] of capsule 00:00: mouth 3 [place] 00 (three) Medical times [facility] daily. rizatriptan 2022-0 Yes [id number] 5mg Take 1 [facility] 5 mg 4-05 tablet by [facility] disintegrat 00:00: mouth as [place] ing tablet 00 needed for [facility] (Take 5mg at the beginning of the headache can repeat 2h after if headaches persists). May repeat in 2 hours if needed magnesium 2022-0 Yes [id number] 400mg Take 2 [facility] gluconate 4-05 tablets by [facility] of 200 mg 00:00: mouth 2 [place] tablet 00 (two) Medical times Branch daily. gabapentin 2022-0 Yes [id number] 300mg Take 1 [facility] 300 mg 4-05 capsule by [facility] of capsule 00:00: mouth 3 [place] 00 (three) Medical times Branch daily. rizatriptan 2022-0 Yes [id number] 5mg Take 1 [facility] 5 mg 4-05 tablet by [facility] of disintegrat 00:00: mouth as [place] ing tablet 00 needed for Med ical Migraine Branch (Take 5mg at the beginning of the headache can repeat 2h after if headaches persists). May repeat in 2 hours if needed magnesium 2022-0 Yes [id number] 400mg Take 2 [facility] gluconate 4-05 tablets by [facility] of 200 mg 00:00: mouth 2 [place] tablet 00 (two) Medical times Branch daily. gabapentin 2022-0 Yes [id number] 300mg Take 1 [facility] 300 mg 4-05 capsule by [facility] of capsule 00:00: mouth 3 [place] 00 (three) Medical times Branch daily. rizatriptan 2022-0 Yes [id number] 5mg Take 1 [facility] 5 mg 4-05 tablet by [facility] of disintegrat 00:00: mouth as [place] ing tablet 00 needed for Med ical Migraine Branch (Take 5mg at the beginning of the headache can repeat 2h after if headaches persists). May repeat in 2 hours if needed magnesium 2022-0 Yes [id number] 400mg Take 2 [facility] gluconate 4-05 tablets by [facility] of 200 mg 00:00: mouth 2 [place] tablet 00 (two) Medical times Branch daily. gabapentin 2022-0 Yes [id number] 300mg Take 1 [facility] 300 mg 4-05 capsule by [facility] of capsule 00:00: mouth 3 [place] (three) Medical times Branch daily. rizatriptan 2022-0 Yes [id number] 5mg Take 1 [facility] 5 mg 4-05 tablet by [facility] of disintegrat 00:00: mouth as [place] ing tablet 00 needed for Med ical Migraine Branch (Take 5mg at the beginning of the headache can repeat 2h after if headaches persists). May repeat in 2 hours if needed magnesium 2022-0 Yes [id number] 400mg Take 2 [facility] gluconate 4-05 tablets by [facility] of 200 mg 00:00: mouth 2 [place] tablet 00 (two) Medical times Branch daily. gabapentin 2022-0 Yes [id number] 300mg Take 1 [facility] 300 mg 4-05 capsule by [facility] of capsule 00:00: mouth 3 [place] 00 (three) Medical times Branch daily. rizatriptan 2022-0 Yes [id number] 5mg Take 1 [facility] 5 mg 4-05 tablet by [facility] of disintegrat 00:00: mouth as [place] ing tablet 00 needed for Med ical Migraine Branch (Take 5mg at the beginning of the headache can repeat 2h after if headaches persists). May repeat in 2 hours if needed magnesium 2022-0 Yes [id number] 400mg Take 2 [facility] gluconate 4-05 tablets by [facility] of 200 mg 00:00: mouth 2 [place] tablet 00 (two) Medical times Branch daily. gabapentin 2022-0 Yes [id number] 300mg Take 1 [facility] 300 mg 4-05 capsule by [facility] of capsule 00:00: mouth 3 [place] (three) Medical times Branch daily. rizatriptan 2022-0 Yes [id number] 5mg Take 1 [facility] 5 mg 4-05 tablet by [facility] of disintegrat 00:00: mouth as [place] ing tablet 00 needed for Med ical Migraine Branch (Take 5mg at the beginning of the headache can repeat 2h after if headaches persists). May repeat in 2 hours if needed magnesium 2022-0 Yes [id number] 400mg Take 2 [facility] gluconate 4-05 tablets by [facility] of 200 mg 00:00: mouth 2 [place] tablet 00 (two) Medical times Branch daily. gabapentin 2022-0 Yes [id number] 300mg Take 1 [facility] 300 mg 4-05 capsule by [facility] of capsule 00:00: mouth 3 [place] (three) Medical times Branch daily. rizatriptan 2022-0 Yes [id number] 5mg Take 1 [facility] 5 mg 4-05 tablet by [facility] of disintegrat 00:00: mouth as [place] ing tablet 00 needed for Med ical Migraine Branch (Take 5mg at the beginning of the headache can repeat 2h after if headaches persists). May repeat in 2 hours if needed magnesium 2022-0 Yes [id number] 400mg Take 2 [facility] gluconate 4-05 tablets by [facility] of 200 mg 00:00: mouth 2 [place] tablet 00 (two) Medical times Branch daily. gabapentin 2022-0 Yes [id number] 300mg Take 1 [facility] 300 mg 4-05 capsule by [facility] of capsule 00:00: mouth 3 [place] (three) Medical times Branch daily. rizatriptan 2022-0 Yes [id number] 5mg Take 1 [facility] 5 mg 4-05 tablet by [facility] of disintegrat 00:00: mouth as [place] ing tablet 00 needed for Med ical Migraine Branch (Take 5mg at the beginning of the headache can repeat 2h after if headaches persists). May repeat in 2 hours if needed magnesium 2022-0 Yes [id number] 400mg Take 2 [facility] gluconate 4-05 tablets by [facility] of 200 mg 00:00: mouth 2 [place] tablet 00 (two) Medical times Branch daily. gabapentin 2022-0 Yes [id number] 300mg Take 1 [facility] 300 mg 4-05 capsule by [facility] of capsule 00:00: mouth 3 [place] 00 (three) Medical times Branch daily. rizatriptan 2022-0 Yes [id number] 5mg Take 1 [facility] 5 mg 4-05 tablet by [facility] of disintegrat 00:00: mouth as [place] ing tablet 00 needed for Med ical Migraine Branch (Take 5mg at the beginning of the headache can repeat 2h after if headaches persists). May repeat in 2 hours if needed magnesium 2022-0 Yes [id number] 400mg Take 2 [facility] gluconate 4-05 tablets by [facility] of 200 mg 00:00: mouth 2 [place] tablet 00 (two) Medical times Branch daily. gabapentin 2022-0 Yes [id number] 300mg Take 1 [facility] 300 mg 4-05 capsule by [facility] of capsule 00:00: mouth 3 [place] (three) Medical times Branch daily. rizatriptan 2022-0 Yes [id number] 5mg Take 1 [facility] 5 mg 4-05 tablet by [facility] of disintegrat 00:00: mouth as [place] ing tablet 00 needed for Med ical Migraine Branch (Take 5mg at the beginning of the headache can repeat 2h after if headaches persists). May repeat in 2 hours if needed magnesium 2022-0 Yes [id number] 400mg Take 2 [facility] gluconate 4-05 tablets by [facility] of 200 mg 00:00: mouth 2 [place] tablet 00 (two) Medical times Branch daily. gabapentin 2-0 Yes [id number] 300mg Take 1 [facility] 300 mg 4-05 capsule by [facility] of capsule 00:00: mouth 3 [place] 00 (three) Medical times Branch daily. rizatriptan 2022-0 Yes [id number] 5mg Take 1 [facility] 5 mg 4-05 tablet by [facility] of disintegrat 00:00: mouth as [place] ing tablet 00 needed for Med ical Migraine Branch (Take 5mg at the beginning of the headache can repeat 2h after if headaches persists). May repeat in 2 hours if needed magnesium 2022-0 Yes [id number] 400mg Take 2 [facility] gluconate 4-05 tablets by [facility] of 200 mg 00:00: mouth 2 [place] tablet 00 (two) Medical times Branch daily. gabapentin 2022-0 Yes [id number] 300mg Take 1 [facility] 300 mg 4-05 capsule by [facility] of capsule 00:00: mouth 3 [place] (three) Medical times Branch daily. rizatriptan 2022-0 Yes [id number] 5mg Take 1 [facility] 5 mg 4-05 tablet by [facility] of disintegrat 00:00: mouth as [place] ing tablet 00 needed for Med ical Migraine Branch (Take 5mg at the beginning of the headache can repeat 2h after if headaches persists). May repeat in 2 hours if needed magnesium 2022-0 Yes [id number] 400mg Take 2 [facility] gluconate 4-05 tablets by [facility] of 200 mg 00:00: mouth 2 [place] tablet 00 (two) Medical times Branch daily. gabapentin 2022-0 Yes [id number] 300mg Take 1 [facility] 300 mg 4-05 capsule by [facility] of capsule 00:00: mouth 3 (three) Medical times Branch daily. rizatriptan 2022-0 Yes [id number] 5mg Take 1 [facility] 5 mg 4-05 tablet by [facility] of disintegrat 00:00: mouth as [place] ing tablet 00 needed for Med ical Migraine Branch (Take 5mg at the beginning of the headache can repeat 2h after if headaches persists). May repeat in 2 hours if needed magnesium 2022-0 Yes [id number] 400mg Take 2 [facility] gluconate 4-05 tablets by [facility] of 200 mg 00:00: mouth 2 [place] tablet 00 (two) Medical times Branch daily. gabapentin 2022-0 Yes [id number] 300mg Take 1 [facility] 300 mg 4-05 capsule by [facility] of capsule 00:00: mouth 3 (three) Medical times Branch daily. rizatriptan 2022-0 Yes [id number] 5mg Take 1 [facility] 5 mg 4-05 tablet by [facility] of disintegrat 00:00: mouth as [place] ing tablet 00 needed for Med ical Migraine Branch (Take 5mg at the beginning of the headache can repeat 2h after if headaches persists). May repeat in 2 hours if needed magnesium 2022-0 Yes [id number] 400mg Take 2 [facility] gluconate 4-05 tablets by [facility] of 200 mg 00:00: mouth 2 [place] tablet 00 (two) Medical times Branch daily. gabapentin 2022-0 Yes [id number] 300mg Take 1 [facility] 300 mg 4-05 capsule by [facility] of capsule 00:00: mouth 3 (three) Medical times Branch daily. rizatriptan 2021-0 Yes [id number] 5mg Take 1 [facility] 5 mg 4-05 tablet by [facility] of disintegrat 00:00: mouth as [place] ing tablet 00 needed for Med ical Migraine Branch (Take 5mg at the beginning of the headache can repeat 2h after if headaches persists). May repeat in 2 hours if needed magnesium 2-0 Yes [id number] 400mg Take 2 [facility] gluconate 4-05 tablets by [facility] of 200 mg 00:00: mouth 2 [place] tablet 00 (two) Medical times Branch daily. ondansetron 2020-0 Yes [id number] 4mg Take 1 [facility] (ZOFRAN 7-22 tablet by [facility] of ODT) 4 mg 00:00: mouth [place] disintegrat 00 every 8 Medic al ing tablet (eight) Branch hours as needed for Nausea and Vomiting (N/V). ondansetron 2020-0 Yes [id number] 4mg Take 1 [facility] (ZOFRAN 7-22 tablet by [facility] of ODT) 4 mg 00:00: mouth [place] disintegrat 00 every 8 Medic al ing tablet (eight) Branch hours as needed for Nausea and Vomiting (N/V). ondansetron 2020-0 Yes [id number] 4mg Take 1 [facility] (ZOFRAN 7-22 tablet by ity of ODT) 4 mg 00:00: mouth [place] disintegrat 00 every 8 Medic al ing tablet (eight) Branch hours as needed for Nausea and Vomiting (N/V). ondansetron 2020-0 Yes [id number] 4mg Take 1 [facility] (ZOFRAN 7-22 tablet by ity of ODT) 4 mg 00:00: mouth [place] disintegrat 00 every 8 Medic al ing tablet (eight) Branch hours as needed for Nausea and Vomiting (N/V). ondansetron 2020-0 Yes [id number] 4mg Take 1 [facility] (ZOFRAN 7-22 tablet by ity of ODT) 4 mg 00:00: mouth [place] disintegrat 00 every 8 Medic al ing tablet (eight) Branch hours as needed for Nausea and Vomiting (N/V). ondansetron 2020-0 Yes [id number] 4mg Take 1 [facility] (ZOFRAN 7-22 tablet by ity of ODT) 4 mg 00:00: mouth [place] disintegrat 00 every 8 Medic al ing tablet (eight) Branch hours as needed for Nausea and Vomiting (N/V). ondansetron 2020-0 Yes [id number] 4mg Take 1 [facility] (ZOFRAN 7-22 tablet by ity of ODT) 4 mg 00:00: mouth [place] disintegrat 00 every 8 Medic al ing tablet (eight) Branch hours as needed for Nausea and Vomiting (N/V). ondansetron 2020-0 Yes [id number] 4mg Take 1 [facility] (ZOFRAN 7-22 tablet by ity of ODT) 4 mg 00:00: mouth [place] disintegrat 00 every 8 Medic al ing tablet (eight) Branch hours as needed for Nausea and Vomiting (N/V). ondansetron 2020-0 Yes [id number] 4mg Take 1 [facility] (ZOFRAN 7-22 tablet by ity of ODT) 4 mg 00:00: mouth [place] disintegrat 00 every 8 Medic al ing tablet (eight) Branch hours as needed for Nausea and Vomiting (N/V). ondansetron 2020-0 Yes [id number] 4mg Take 1 [facility] (ZOFRAN 7-22 tablet by ity of ODT) 4 mg 00:00: mouth [place] disintegrat 00 every 8 Medic al ing tablet (eight) Branch hours as needed for Nausea and Vomiting (N/V). ondansetron 2020-0 Yes [id number] 4mg Take 1 [facility] (ZOFRAN 7-22 tablet by ity of ODT) 4 mg 00:00: mouth [place] disintegrat 00 every 8 Medic al ing tablet (eight) Branch hours as needed for Nausea and Vomiting (N/V). ondansetron 2020-0 Yes [id number] 4mg Take 1 [facility] (ZOFRAN 7-22 tablet by ity of ODT) 4 mg 00:00: mouth [place] disintegrat 00 every 8 Medic al ing tablet (eight) Branch hours as needed for Nausea and Vomiting (N/V). ondansetron 2020-0 Yes [id number] 4mg Take 1 [facility] (ZOFRAN 7-22 tablet by ity of ODT) 4 mg 00:00: mouth [place] disintegrat 00 every 8 Medic al ing tablet (eight) Branch hours as needed for Nausea and Vomiting (N/V). ondansetron 2020-0 Yes [id number] 4mg Take 1 [facility] (ZOFRAN 7-22 tablet by ity of ODT) 4 mg 00:00: mouth [place] disintegrat 00 every 8 Medic al ing tablet (eight) Branch hours as needed for Nausea and Vomiting (N/V). ondansetron 2020-0 Yes [id number] 4mg Take 1 [facility] (ZOFRAN 7-22 tablet by ity of ODT) 4 mg 00:00: mouth [place] disintegrat 00 every 8 Medic al ing tablet (eight) Branch hours as needed for Nausea and Vomiting (N/V). ondansetron 2020-0 Yes [id number] 4mg Take 1 [facility] (ZOFRAN 7-22 tablet by ity of ODT) 4 mg 00:00: mouth [place] disintegrat 00 every 8 Medic al ing tablet (eight) Branch hours as needed for Nausea and Vomiting (N/V). ondansetron 2020-0 Yes [id number] 4mg Take 1 [facility] (ZOFRAN 7-22 tablet by ity of ODT) 4 mg 00:00: mouth [place] disintegrat 00 every 8 Medic al ing tablet (eight) Branch hours as needed for Nausea and Vomiting (N/V). ondansetron 2020-0 Yes [id number] 4mg Take 1 [facility] (ZOFRAN 7-22 tablet by ity of ODT) 4 mg 00:00: mouth [place] disintegrat 00 every 8 Medic al ing tablet (eight) Branch hours as needed for Nausea and Vomiting (N/V). ondansetron 2020-0 Yes [id number] 4mg Take 1 [facility] (ZOFRAN 7-22 tablet by ity of ODT) 4 mg 00:00: mouth [place] disintegrat 00 every 8 Medic al ing tablet (eight) Branch hours as needed for Nausea and Vomiting (N/V). ondansetron 2020-0 Yes [id number] 4mg Take 1 [facility] (ZOFRAN 7-22 tablet by ity of ODT) 4 mg 00:00: mouth [place] disintegrat 00 every 8 Medic al ing tablet (eight) Branch hours as needed for Nausea and Vomiting (N/V). ondansetron 2020-0 Yes [id number] 4mg Take 1 [facility] (ZOFRAN 7-22 tablet by ity of ODT) 4 mg 00:00: mouth [place] disintegrat 00 every 8 Medic al ing tablet (eight) Branch hours as needed for Nausea and Vomiting (N/V). ondansetron 2020-0 Yes [id number] 4mg Take 1 [facility] (ZOFRAN 7-22 tablet by ity of ODT) 4 mg 00:00: mouth [place] disintegrat 00 every 8 Medic al ing tablet (eight) Branch hours as needed for Nausea and Vomiting (N/V). ondansetron 2020-0 Yes [id number] 4mg Take 1 [facility] (ZOFRAN 7-22 tablet by ity of ODT) 4 mg 00:00: mouth [place] disintegrat 00 every 8 Medic al ing tablet (eight) Branch hours as needed for Nausea and Vomiting (N/V). ondansetron 2020-0 Yes [id number] 4mg Take 1 [facility] (ZOFRAN 7-22 tablet by ity of ODT) 4 mg 00:00: mouth [place] disintegrat 00 every 8 Medic al ing tablet (eight) Branch hours as needed for Nausea and Vomiting (N/V). ondansetron 2020-0 Yes [id number] 4mg Take 1 [facility] (ZOFRAN 7-22 tablet by ity of ODT) 4 mg 00:00: mouth [place] disintegrat 00 every 8 Medic al ing tablet (eight) Branch hours as needed for Nausea and Vomiting (N/V). ondansetron 2020-0 Yes [id number] 4mg Take 1 [facility] (ZOFRAN 7-22 tablet by ity of ODT) 4 mg 00:00: mouth [place] disintegrat 00 every 8 Medic al ing tablet (eight) Branch hours as needed for Nausea and Vomiting (N/V). ondansetron 2020-0 Yes [id number] 4mg Take 1 [facility] (ZOFRAN 7-22 tablet by ity of ODT) 4 mg 00:00: mouth [place] disintegrat 00 every 8 Medic al ing tablet (eight) Branch hours as needed for Nausea and Vomiting (N/V). ondansetron 2020-0 Yes [id number] 4mg Take 1 [facility] (ZOFRAN 7-22 tablet by ity of ODT) 4 mg 00:00: mouth [place] disintegrat 00 every 8 Medic al ing tablet (eight) Branch hours as needed for Nausea and Vomiting (N/V). ondansetron 2020-0 Yes [id number] 4mg Take 1 [facility] (ZOFRAN 7-22 tablet by ity of ODT) 4 mg 00:00: mouth [place] disintegrat 00 every 8 Medic al ing tablet (eight) Branch hours as needed for Nausea and Vomiting (N/V). ondansetron 2021-0 Yes [id number] 4mg Take 1 [facility] (ZOFRAN 7-22 tablet by ity of ODT) 4 mg 00:00: mouth [place] disintegrat 00 every 8 Medic al ing tablet (eight) Branch hours as needed for Nausea and Vomiting (N/V). ondansetron 1-0 Yes [id number] 4mg Take 1 [facility] (ZOFRAN 7-22 tablet by ity of ODT) 4 mg 00:00: mouth [place] disintegrat 00 every 8 Medic al ing tablet (eight) Branch hours as needed for Nausea and Vomiting (N/V). ondansetron 1-0 Yes [id number] 4mg Take 1 [facility] (ZOFRAN 7-22 tablet by ity of ODT) 4 mg 00:00: mouth [place] disintegrat 00 every 8 Medic al ing tablet (eight) Branch hours as needed for Nausea and Vomiting (N/V). ondansetron 2020-0 Yes [id number] 4mg Take 1 [facility] (ZOFRAN 7-22 tablet by ity of ODT) 4 mg 00:00: mouth [place] disintegrat 00 every 8 Medic al ing tablet (eight) Branch hours as needed for Nausea and Vomiting (N/V). ondansetron 2020-0 Yes [id number] 4mg Take 1 [facility] (ZOFRAN 7-22 tablet by ity of ODT) 4 mg 00:00: mouth [place] disintegrat 00 every 8 Medic al ing tablet (eight) Branch hours as needed for Nausea and Vomiting (N/V). ondansetron 1-0 Yes [id number] 4mg Take 1 [facility] (ZOFRAN 7-22 tablet by ity of ODT) 4 mg 00:00: mouth [place] disintegrat 00 every 8 Medic al ing tablet (eight) Branch hours as needed for Nausea and Vomiting (N/V). ondansetron 2021-0 Yes [id number] 4mg Take 1 [facility] (ZOFRAN 7-22 tablet by ity of ODT) 4 mg 00:00: mouth [place] disintegrat 00 every 8 Medic al ing tablet (eight) Branch hours as needed for Nausea and Vomiting (N/V). ondansetron 2020-0 Yes [id number] 4mg Take 1 [facility] (ZOFRAN 7-22 tablet by ity of ODT) 4 mg 00:00: mouth [place] disintegrat 00 every 8 Medic al ing tablet (eight) Branch hours as needed for Nausea and Vomiting (N/V). ondansetron 2020-0 Yes [id number] 4mg Take 1 [facility] (ZOFRAN 7-22 tablet by ity of ODT) 4 mg 00:00: mouth [place] disintegrat 00 every 8 Medic al ing tablet (eight) Branch hours as needed for Nausea and Vomiting (N/V). ondansetron 2020-0 Yes [id number] 4mg Take 1 [facility] (ZOFRAN 7-22 tablet by ity of ODT) 4 mg 00:00: mouth [place] disintegrat 00 every 8 Medic al ing tablet (eight) Branch hours as needed for Nausea and Vomiting (N/V). ondansetron 2020-0 Yes [id number] 4mg Take 1 [facility] (ZOFRAN 7-22 tablet by ity of ODT) 4 mg 00:00: mouth [place] disintegrat 00 every 8 Medic al ing tablet (eight) Branch hours as needed for Nausea and Vomiting (N/V). ondansetron 2020-0 Yes [id number] 4mg Take 1 [facility] (ZOFRAN 7-22 tablet by ity of ODT) 4 mg 00:00: mouth [place] disintegrat 00 every 8 Medic al ing tablet (eight) Branch hours as needed for Nausea and Vomiting (N/V). ondansetron 2020-0 Yes [id number] 4mg Take 1 [facility] (ZOFRAN 7-22 tablet by ity of ODT) 4 mg 00:00: mouth [place] disintegrat 00 every 8 Medic al ing tablet (eight) Branch hours as needed for Nausea and Vomiting (N/V). ondansetron 2020-0 Yes [id number] 4mg Take 1 [facility] (ZOFRAN 7-22 tablet by ity of ODT) 4 mg 00:00: mouth [place] disintegrat 00 every 8 Medic al ing tablet (eight) Branch hours as needed for Nausea and Vomiting (N/V). ondansetron 2020-0 Yes [id number] 4mg Take 1 [facility] (ZOFRAN 7-22 tablet by ity of ODT) 4 mg 00:00: mouth [place] disintegrat 00 every 8 Medic al ing tablet (eight) Branch hours as needed for Nausea and Vomiting (N/V). ondansetron 1-0 Yes [id number] 4mg Take 1 [facility] (ZOFRAN 7-22 tablet by ity of ODT) 4 mg 00:00: mouth [place] disintegrat 00 every 8 Medic al ing tablet (eight) Branch hours as needed for Nausea and Vomiting (N/V). ondansetron 2020-0 Yes [id number] 4mg Take 1 [facility] (ZOFRAN 7-22 tablet by ity of ODT) 4 mg 00:00: mouth [place] disintegrat 00 every 8 Medic al ing tablet (eight) Branch hours as needed for Nausea and Vomiting (N/V). ondansetron 2020-0 Yes [id number] 4mg Take 1 [facility] (ZOFRAN 7-22 tablet by ity of ODT) 4 mg 00:00: mouth [place] disintegrat 00 every 8 Medic al ing tablet (eight) Branch hours as needed for Nausea and Vomiting (N/V). ondansetron 2020-0 Yes [id number] 4mg Take 1 [facility] (ZOFRAN 7-22 tablet by ity of ODT) 4 mg 00:00: mouth [place] disintegrat 00 every 8 Medic al ing tablet (eight) Branch hours as needed for Nausea and Vomiting (N/V). ondansetron 2020-0 Yes [id number] 4mg Take 1 [facility] (ZOFRAN 7-22 tablet by ity of ODT) 4 mg 00:00: mouth [place] disintegrat 00 every 8 Medic al ing tablet (eight) Branch hours as needed for Nausea and Vomiting (N/V). ondansetron 2020-0 Yes [id number] 4mg Take 1 [facility] (ZOFRAN 7-22 tablet by ity of ODT) 4 mg 00:00: mouth [place] disintegrat 00 every 8 Medic al ing tablet (eight) Branch hours as needed for Nausea and Vomiting (N/V). ondansetron 1-0 Yes [id number] 4mg Take 1 [facility] (ZOFRAN 7-22 tablet by ity of ODT) 4 mg 00:00: mouth [place] disintegrat 00 every 8 Medic al ing tablet (eight) Branch hours as needed for Nausea and Vomiting (N/V). ondansetron 2020-0 Yes [id number] 4mg Take 1 [facility] (ZOFRAN 7-22 tablet by ity of ODT) 4 mg 00:00: mouth [place] disintegrat 00 every 8 Medic al ing tablet (eight) Branch hours as needed for Nausea and Vomiting (N/V). ondansetron 2020-0 Yes [id number] 4mg Take 1 [facility] (ZOFRAN 7-22 tablet by ity of ODT) 4 mg 00:00: mouth [place] disintegrat 00 every 8 Medic al ing tablet (eight) Branch hours as needed for Nausea and Vomiting (N/V). ondansetron 2020-0 Yes [id number] 4mg Take 1 [facility] (ZOFRAN 7-22 tablet by ity of ODT) 4 mg 00:00: mouth [place] disintegrat 00 every 8 Medic al ing tablet (eight) Branch hours as needed for Nausea and Vomiting (N/V). ondansetron 2020-0 Yes [id number] 4mg Take 1 [facility] (ZOFRAN 7-22 tablet by ity of ODT) 4 mg 00:00: mouth [place] disintegrat 00 every 8 Medic al ing tablet (eight) Branch hours as needed for Nausea and Vomiting (N/V). ondansetron 2020-0 Yes [id number] 4mg Take 1 [facility] (ZOFRAN 7-22 tablet by ity of ODT) 4 mg 00:00: mouth [place] disintegrat 00 every 8 Medic al ing tablet (eight) Branch hours as needed for Nausea and Vomiting (N/V). ondansetron 2020-0 Yes [id number] 4mg Take 1 [facility] (ZOFRAN 7-22 tablet by ity of ODT) 4 mg 00:00: mouth [place] disintegrat 00 every 8 Medic al ing tablet (eight) Branch hours as needed for Nausea and Vomiting (N/V). ondansetron 2020-0 Yes [id number] 4mg Take 1 [facility] (ZOFRAN 7-22 tablet by ity of ODT) 4 mg 00:00: mouth [place] disintegrat 00 every 8 Medic al ing tablet (eight) Branch hours as needed for Nausea and Vomiting (N/V). ondansetron 2020-0 Yes [id number] 4mg Take 1 [facility] (ZOFRAN 7-22 tablet [...] by mouth ity of tablet 13:17: at [place] [address] bedtime. Medical Branch allopurinoL 2020-0 Yes 100mg [...] by mouth ity of tablet 13:17: at [place] [address] bedtime. Medical Branch allopurinoL 2020-0 Yes 100mg Take 100 [facility] nivers 100 mg 6-24 mg by ity of tablet 13:17: mouth [place] 52 daily. Medical Branch atorvastati 2020-0 Yes 10mg Take 10 mg [facility] n 10 mg 6-24 by mouth ity of tablet 13:17: at [place] [address] bedtime. Medical Branch allopurinoL 2020-0 Yes 100mg Take 100 [facility] nivers 100 mg 6-24 mg by ity of tablet 13:17: mouth [place] 52 daily. Medical Branch atorvastati 2020-0 Yes 10mg Take 10 mg [facility] n 10 mg 6-24 by mouth ity of tablet 13:17: at [place] [address] bedtime. Medical Branch allopurinoL 2020-0 Yes 100mg Take 100 [facility] nivers 100 mg 6-24 mg by ity of tablet 13:17: mouth [place] 52 daily. Medical Branch atorvastati 2020-0 Yes 10mg Take 10 mg [facility] n 10 mg 6-24 by mouth ity of tablet 13:17: at [place] [address] bedtime. Medical Branch allopurinoL 2020-0 Yes 100mg Take 100 [facility] nivers 100 mg 6-24 mg by ity of tablet 13:17: mouth [place] 52 daily. Medical Branch atorvastati 2020-0 Yes 10mg Take 10 mg [facility] n 10 mg 6-24 by mouth ity of tablet 13:17: at [place] [address] bedtime. Medical Branch allopurinoL 2020-0 Yes 100mg [...] by mouth ity of tablet 13:17: at [place] 52 bedtime. Medical Branch allopurinoL 2020-0 Yes 100mg Take 100 U nivers 100 mg 6-24 mg by ity of tablet 13:17: mouth [place] 52 daily. Medical Branch atorvastati 2020-0 Yes 10mg Take 10 mg [facility] n 10 mg 6-24 by mouth ity of tablet 13:17: at [place] [address] bedtime. Medical Branch allopurinoL 2020-0 Yes 100mg Take 100 U nivers 100 mg 6-24 mg by ity of tablet 13:17: mouth [place] 52 daily. Medical Branch atorvastati 2020-0 Yes 10mg Take 10 mg [facility] n 10 mg 6-24 by mouth ity of tablet 13:17: at [place] [address] bedtime. Medical Branch allopurinoL 2020-0 Yes 100mg [...] by mouth ity of tablet 13:17: at [place] 52 bedtime. Medical Branch allopurinoL 2020-0 Yes [...] by mouth ity of tablet 13:17: at [place] 52 bedtime. Medical Branch allopurinoL 2020-0 Yes [...] by mouth ity of tablet 13:17: at [place] [address] bedtime. Medical Branch allopurinoL 2020-0 Yes 100mg Take 100 [facility] nivers 100 mg 6-24 mg by ity of tablet 13:17: mouth [place] 52 daily. Medical Branch atorvastati 2020-0 Yes 10mg Take 10 mg [facility] n 10 mg 6-24 by mouth ity of tablet 13:17: at [place] 52 bedtime. Medical Branch allopurinoL 2020-0 Yes 100mg Take 100 [facility] nivers 100 mg 6-24 mg by ity of tablet 13:17: mouth [place] 52 daily. Medical Branch atorvastati 2020-0 Yes 10mg Take 10 mg [facility] n 10 mg 6-24 by mouth ity of tablet 13:17: at [place] [address] bedtime. Medical Branch allopurinoL 2020-0 Yes 100mg Take 100 [facility] nivers 100 mg 6-24 mg by ity of tablet 13:17: mouth [place] 52 daily. Medical Branch atorvastati 2020-0 Yes 10mg Take 10 mg [facility] n 10 mg 6-24 by mouth ity of tablet 13:17: at [place] [address] bedtime. Medical Branch allopurinoL 2020-0 Yes 100mg Take 100 [facility] nivers 100 mg 6-24 mg by ity of tablet 13:17: mouth [place] 52 daily. Medical Branch atorvastati 2020-0 Yes 10mg Take 10 mg Univers n 10 mg 6-24 by mouth ity of tablet 13:17: at [place] [address] bedtime. Medical Branch allopurinoL 2020-0 Yes 100mg Take 100 U nivers 100 mg 6-24 mg by ity of tablet 13:17: mouth [place] 52 daily. Medical Branch atorvastati 2020-0 Yes 10mg Take 10 mg Univers n 10 mg 6-24 by mouth ity of tablet 13:17: at [place] [address] bedtime. Medical Branch allopurinoL 2020-0 Yes 100mg Take 100 U nivers 100 mg 6-24 mg by ity of tablet 13:17: mouth [place] 52 daily. Medical Branch atorvastati 2020-0 Yes 10mg Take 10 mg Univers n 10 mg 6-24 by mouth ity of tablet 13:17: at [place] [address] bedtime. Medical Branch allopurinoL 2020-0 Yes 100mg Take 100 U nivers 100 mg 6-24 mg by ity of tablet 13:17: mouth [place] 52 daily. Medical Branch atorvastati 2020-0 Yes 10mg Take 10 mg Univers n 10 mg 6-24 by mouth ity of tablet 13:17: at [place] [address] bedtime. Medical Branch allopurinoL 2020-0 Yes 100mg Take 100 U nivers 100 mg 6-24 mg by ity of tablet 13:17: mouth [place] 52 daily. Medical Branch atorvastati 2020-0 Yes 10mg Take 10 mg Univers n 10 mg 6-24 by mouth ity of tablet 13:17: at [place] 52 bedtime. Medical Branch allopurinoL 2020-0 Yes 100mg Take 100 U nivers 100 mg 6-24 mg by ity of tablet 13:17: mouth [place] 52 daily. Medical Branch atorvastati 2020-0 Yes 10mg Take 10 mg Univers n 10 mg 6-24 by mouth ity of tablet 13:17: at [place] [address] bedtime. Medical Branch allopurinoL 2020-0 Yes 100mg Take 100 U nivers 100 mg 6-24 mg by ity of tablet 13:17: mouth [place] 52 daily. Medical Branch atorvastati 2020-0 Yes 10mg Take 10 mg Univers n 10 mg 6-24 by mouth ity of tablet 13:17: at [place] [address] bedtime. Medical Branch allopurinoL 2020-0 Yes 100mg Take 100 U nivers 100 mg 6-24 mg by ity of tablet 13:17: mouth [place] 52 daily. Medical Branch atorvastati 2020-0 Yes 10mg Take 10 mg Univers n 10 mg 6-24 by mouth ity of tablet 13:17: at [place] [address] bedtime. Medical Branch allopurinoL 2020-0 Yes 100mg Take 100 U nivers 100 mg 6-24 mg by ity of tablet 13:17: mouth [place] 52 daily. Medical Branch atorvastati 2020-0 Yes 10mg Take 10 mg Univers n 10 mg 6-24 by mouth ity of tablet 13:17: at [place] [address] bedtime. Medical Branch allopurinoL 2020-0 Yes 100mg Take 100 U nivers 100 mg 6-24 mg by ity of tablet 13:17: mouth [place] 52 daily. Medical Branch atorvastati 2020-0 Yes 10mg Take 10 mg Univers n 10 mg 6-24 by mouth ity of tablet 13:17: at [place] [address] bedtime. Medical Branch allopurinoL 2020-0 Yes 100mg [...] by mouth ity of tablet 13:17: at [place] 52 bedtime. Medical Branch allopurinoL 2020-0 Yes 100mg Take 100 U nivers 100 mg 6-24 mg by ity of tablet 13:17: mouth [place] 52 daily. Medical Branch atorvastati 2020-0 Yes 10mg Take 10 mg Univers n 10 mg 6-24 by mouth ity of tablet 13:17: at [place] [address] bedtime. Medical Branch allopurinoL 2020-0 Yes 100mg Take 100 U nivers 100 mg 6-24 mg by ity of tablet 13:17: mouth [place] 52 daily. Medical Branch atorvastati 2020-0 Yes 10mg Take 10 mg Univers n 10 mg 6-24 by mouth ity of tablet 13:17: at [place] [address] bedtime. Medical Branch allopurinoL 2020-0 Yes 100mg Take 100 U nivers 100 mg 6-24 mg by ity of tablet 13:17: mouth [place] 52 daily. Medical Branch atorvastati 2020-0 Yes 10mg Take 10 mg Univers n 10 mg 6-24 by mouth ity of tablet 13:17: at [place] [address] bedtime. Medical Branch allopurinoL 2020-0 Yes 100mg Take 100 U nivers 100 mg 6-24 mg by ity of tablet 13:17: mouth [place] 52 daily. Medical Branch atorvastati 2020-0 Yes 10mg Take 10 mg Univers n 10 mg 6-24 by mouth ity of tablet 13:17: at [place] 52 bedtime. Medical Branch allopurinoL 2020-0 Yes 100mg Take 100 U nivers 100 mg 6-24 mg by ity of tablet 13:17: mouth [place] 52 daily. Medical Branch atorvastati 2020-0 Yes 10mg Take 10 mg Univers n 10 mg 6-24 by mouth ity of tablet 13:17: at [place] 52 bedtime. Medical Branch allopurinoL 2020-0 Yes 100mg Take 100 U nivers 100 mg 6-24 mg by ity of tablet 13:17: mouth [place] 52 daily. Medical Branch atorvastati 2020-0 Yes 10mg Take 10 mg Univers n 10 mg 6-24 by mouth ity of tablet 13:17: at [place] 52 bedtime. Medical Branch allopurinoL 2020-0 Yes 100mg Take 100 U nivers 100 mg 6-24 mg by ity of tablet 13:17: mouth [place] 52 daily. Medical Branch atorvastati 2020-0 Yes 10mg Take 10 mg Univers n 10 mg 6-24 by mouth ity of tablet 13:17: at [place] [address] bedtime. Medical Branch allopurinoL 2020-0 Yes 100mg Take 100 U nivers 100 mg 6-24 mg by ity of tablet 13:17: mouth [place] 52 daily. Medical Branch atorvastati 2020-0 Yes 10mg Take 10 mg Univers n 10 mg 6-24 by mouth ity of tablet 13:17: at [place] [address] bedtime. Medical Branch allopurinoL 2020-0 Yes 100mg Take 100 U nivers 100 mg 6-24 mg by ity of tablet 13:17: mouth [place] 52 daily. Medical Branch atorvastati 2020-0 Yes 10mg Take 10 mg Univers n 10 mg 6-24 by mouth ity of tablet 13:17: at [place] [address] bedtime. Medical Branch allopurinoL 2020-0 Yes 100mg Take 100 U nivers 100 mg 6-24 mg by ity of tablet 13:17: mouth [place] 52 daily. Medical Branch atorvastati 2020-0 Yes 10mg Take 10 mg Univers n 10 mg 6-24 by mouth ity of tablet 13:17: at [place] [address] bedtime. Medical Branch allopurinoL 2020-0 Yes 100mg Take 100 U nivers 100 mg 6-24 mg by ity of tablet 13:17: mouth [place] 52 daily. Medical Branch atorvastati 2020-0 Yes 10mg Take 10 mg Univers n 10 mg 6-24 by mouth ity of tablet 13:17: at [place] [address] bedtime. Medical Branch allopurinoL 2020-0 Yes 100mg [...] by mouth ity of tablet 13:17: at [place] [address] bedtime. Medical Branch allopurinoL 2020-0 Yes 100mg Take 100 U nivers 100 mg 6-24 mg by ity of tablet 13:17: mouth [place] 52 daily. Medical Branch atorvastati 2020-0 Yes 10mg Take 10 mg Univers n 10 mg 6-24 by mouth ity of tablet 13:17: at [place] [address] bedtime. Medical Branch allopurinoL 2020-0 Yes 100mg Take 100 U nivers 100 mg 6-24 mg by ity of tablet 13:17: mouth [place] 52 daily. Medical Branch atorvastati 2020-0 Yes 10mg Take 10 mg Univers n 10 mg 6-24 by mouth ity of tablet 13:17: at [place] [address] bedtime. Medical Branch allopurinoL 2020-0 Yes 100mg Take 100 U nivers 100 mg 6-24 mg by ity of tablet 13:17: mouth [place] 52 daily. Medical Branch atorvastati 2020-0 Yes 10mg Take 10 mg Univers n 10 mg 6-24 by mouth ity of tablet 13:17: at [place] [address] bedtime. Medical Branch allopurinoL 2020-0 Yes 100mg Take 100 U nivers 100 mg 6-24 mg by ity of tablet 13:17: mouth [place] 52 daily. Medical Branch atorvastati 2020-0 Yes 10mg Take 10 mg Univers n 10 mg 6-24 by mouth ity of tablet 13:17: at [place] [address] bedtime. Medical Branch propranolol 2020-0 Yes 80mg [...] mouth 2 ity of tablet 13:12: (two) [place] 38 times Medical daily. Branch propranolol 2020-0 Yes 80mg Take 80 mg Univers 80 mg 6-24 by mouth 2 ity of tablet 13:12: (two) [place] 38 times Medical daily. Branch propranolol 2020-0 Yes 80mg Take 80 mg Univers 80 mg 6-24 by mouth 2 ity of tablet 13:12: (two) [place] 38 times Medical daily. Branch propranolol 2020-0 Yes 80mg Take 80 mg Univers 80 mg 6-24 by mouth 2 ity of tablet 13:12: (two) [place] 38 times Medical daily. Branch propranolol 2020-0 [...] mouth 2 ity of tablet 13:12: (two) [place] 38 times Medical daily. Branch propranolol 2020-0 [...] mouth 2 ity of tablet 13:12: (two) [place] 38 times Medical daily. Branch propranolol 2020-0 Yes 80mg Take 80 mg Univers 80 mg 6-24 by mouth 2 ity of tablet 13:12: (two) [place] 38 times Medical daily. Branch Vital Signs Vital Name Observation Time Observation Value Comments Source Systolic blood 2022-10-19 159 mm[Hg] Provider University of pressure 12:35:00 [facility] Diastolic blood 2022-10-19 85 mm[Hg] Provider University o f pressure 12:35:00 [facility] Heart rate 2022-10-19 94 /min University of 12:35:00 [facility] Body temperature 2022-10-19 36.78 Verna University of 12:33:00 [facility] Respiratory rate 2022-10-19 16 /min University of 12:33:00 [facility] Body height 2022-10-19 167.6 cm University of 12:33:00 [facility] Body weight 2022-10-19 96.616 kg University of 12:33:00 [facility] BMI 2022-10-19 34.38 kg/m2 University of 12:33:00 [facility] Oxygen saturation 2022-10-19 98 /min [facility] Arterial blood 12:33:00 [facility] by Pulse oximetry Branch Systolic blood 2022-10-04 149 mm[Hg] University of pressure 14:26:00 [facility] Diastolic blood 2022-10-04 76 mm[Hg] University o f pressure 14:26:00 [facility] Heart rate 2022-10-04 78 /min University of 14:26:00 [facility] Respiratory rate 2022-10-04 18 /min University of 14:21:00 [facility] Body height 2022-10-04 167.6 cm University of 14:21:00 [facility] Body weight 2022-10-04 96.843 kg University of 14:21:00 [facility] BMI 2022-10-04 34.46 kg/m2 University of 14:21:00 [facility] Systolic blood 2022-07-26 135 mm[Hg] University of pressure 13:22:00 [facility] Diastolic blood 2022-07-26 78 mm[Hg] University o f pressure 13:22:00 [facility] Heart rate 2022-07-26 85 /min University of 13:22:00 [facility] Branch Respiratory rate 2022-07-26 18 /min University of 13:22:00 [facility] Branch Body height 2022-07-26 167.6 cm University of 13:22:00 [facility] Branch Body weight 2022-07-26 97.523 kg University of 13:22:00 [facility] Branch BMI 2022-07-26 34.70 kg/m2 University of 13:22:00 [facility] Branch Systolic blood 2022-02-15 131 mm[Hg] University of pressure 14:59:00 [facility] Branch Diastolic blood 2022-02-15 70 mm[Hg] University o f pressure 14:59:00 [facility] Heart rate 2022-02-15 81 /min University of 14:59:00 [facility] Branch Respiratory rate 2022-02-15 18 /min University of 14:59:00 [facility] Body height 2022-02-15 167.6 cm University of 14:59:00 [facility] Body weight 2022-02-15 102.967 kg University of 14:59:00 [facility] Branch BMI 2022-02-15 36.64 kg/m2 University of 14:59:00 [facility] Respiratory rate 2022-01-11 18 /min University of 17:11:00 [facility] Branch Body height 2022-01-11 167.6 cm University of 17:11:00 [facility] Body weight 2022-01-11 100.699 kg University of 17:11:00 [facility] BMI 2022-01-11 35.83 kg/m2 University of 17:11:00 [facility] Branch Systolic blood 2021-08-24 133 mm[Hg] University of pressure 14:24:00 [facility] Branch Diastolic blood 2021-08-24 73 mm[Hg] University o f pressure 14:24:00 [facility] Branch Heart rate 2021-08-24 69 /min University of 14:24:00 [facility] Branch Respiratory rate 2021-08-24 18 /min University of 14:24:00 [facility] Branch Body height 2021-08-24 167.6 cm University of 14:24:00 [facility] Branch Body weight 2021-08-24 100.245 kg University of 14:24:00 [facility] Branch BMI 2021-08-24 35.67 kg/m2 University of 14:24:00 [facility] Oxygen saturation 2021-06-07 96 /min [facility] in Arterial blood 15:30:00 [facility] by Pulse oximetry Branch Body temperature 2021-06-07 37.44 Verna [facility] 14:20:30 [place] [facility] [place] Procedures Procedure Date / Time Performing Clinician Source Performed HELICOBACTER PYLORI 2022-10-19 13:44:00 [facility] FEC[facility] BY EIA [facility] FERRITIN SERUM 2022-10-19 13:35[facility] 2022-10-19 13:35:00 [facility] CELIAC SCREEN 2022-10-19 13:35:00 [facility] LAB ONLY CELIAC SCREEN 2022-10-19 13:35:00 [facility] DISCLOS[facility] AND CONSENT, 2022-10-19 05:01:00 Doctor Unassigned, N o [facility] MEDICAL AND SURGICAL Name Medical Bra nc PROCEDURES REFERRAL- 2022-10-12 05:01:00 Doctor Unassigned, No [facility] REQUEST/RESPONSE Name Medical Branch REFERRAL- 2022-10-12 05:01:00 Doctor Unassigned, No [facility] REQUEST/RESPONSE Name Medical Branch THYROID STIMULATING 2022-10-05 15:15:00 Rosalind Freed [facility] HORMONE [facility] Branch COMP. METABOLIC PANEL 2022-10-05 15:15:00 Rosalind Freed [facility] ([id number]) [facility] [place] LIPID PANEL 2022-10-05 15:15:00 Rosalind Freed [facility] ([id number])(TOTAL [facility] [place] CHOLESTEROL, TRIGLYCERIDES, HDL) LITHIUM 2022-10-05 15:15:00 Sara Okeefe [facility] CBC WITH DIFF 2022-10-05 15:15:00 Rosalind Freed [facility] GLYCOSYLATED HEMOGLOBIN 2022-10-05 15:15:00 Rosalind Freed [facility] (A1C) [facility] [place] CBC WITH DIFF 2022-10-05 15:15:00 Rosalind Freed [facility] [place] COMP. METABOLIC PANEL 2022-10-05 15:15:00 Rosalind Freed [facility] ([id number]) Medical Branch GLYCOSYLATED HEMOGLOBIN 2022-10-05 15:15:00 Rosalind Freed [facility] (A1C) Medical Branch LIPID PANEL 2022-10-05 15:15:00 Rosalind Freed [facility] ([id number])(TOTAL Medical Branch CHOLESTEROL, TRIGLYCERIDES, HDL) THYROID STIMULATING 2022-10-05 15:15:00 Rosalind Freed [facility] HORMONE Medical Branch LITHIUM 2022-10-05 15:15:00 Sara Okeefe [facility] ASSIGNMENT OF BENEFITS 2022-10-04 14:17:30 Doctor Unassigned, No [facility] Name Medical Branch ASSIGNMENT OF BENEFITS 2022-10-04 14:17:30 Doctor Unassigned, No [facility] Name Medical Branch LITHIUM 2022-07-26 14:49:00 Angela Sage [facility] PATIENT FINANCIAL 2022-07-26 13:16:12 Doctor Unassigned, No [facility] POLICY Name Medical Branch [facility] PATIENT FINANCIAL 2022-07-26 13:16:12 Doctor Unassigned, No [facility] POLICY Name Medical Branch EXTERNAL PROVIDER 2022-04-08 06:01:00 Doctor Unassigned, No [facility] [place] RECORDS Name Medical Branch EXTERNAL PROVIDER 2022-04-08 06:01:00 Doctor Unassigned, No [facility] [place] RECORDS Name Medical Branch EXTERNAL PROVIDER 2022-02-21 06:01:00 Doctor Unassigned, No [facility] [place] RECORDS Name Medical Branch EXTERNAL PROVIDER 2022-02-21 06:01:00 Doctor Unassigned, No [facility] [place] RECORDS Name Medical Branch LITHIUM 2022-02-15 15:58:00 Angela Sage [facility] CONSENT/REFUSAL FOR 2022-01-11 17:10:16 Doctor Unassigned, No [facility] [place] DIAGNOSIS AND TREATMENT Name Medical Branch CONSENT/REFUSAL FOR 2022-01-11 17:10:16 [facility] Name Medical Branch EXTERNAL PROVIDER 2020-11-26 05:01:00 Doctor Unassigned, No Univ [facility] RECORDS Name Medical Branch Encounters Start End Encounter Admission Attending Care Care Encounter Source Date/Time Date/Time Type Type Clinicians Facility Department ID 2020-12-13 Emergency [facility] [id number] Univers 10:09:54 ity of [facility] 2020-12-11 Emergency [facility] [id number] Univers 04:02:45 ity of [facility] 2022-10-30 2022-10-30 Case MOO Cordero 1.2.840.114 [id number] Univers 00:00:00 00:00:00 Management Elidia DEVLIN 350.1.13.10 ity of [facility] 4.2.7.2.686 Iam as [id number] [facility] 046 Branch 2022-10-19 2022-10-19 Shirt Bander [facility] UNIVERSIT 1.2.840.114 [id number] Univers 08:30:00 08:45:00 Visit Jewel Lindsey [facility] 350.1.13. 10 ity of CL[place] 4[place] [id number] [facility] 316 Branch 2022-10-19 2022-10-19 Outpatient Tnoya LINDSEY [facility] [id number] Univers 07:30:00 08:15:[address] [facility] 2022-10-19 2022-10-19 Office Consuelo Sharonaklarissakarl Chao UNIVERSIT 1 .2.840.114 [id number] Univers 07:30:00 08:15:30 Visit Jewel Lindsey [facility] 350.1.13. 10 ity of CL[place] [id number] [facility] 071 Branch 2022-10-19 2022-10-19 Orders Doctor MOO 1.2.840.114 [id number] Univers 00:00:00 00:00:00 Only Unassigned, QUITA 350.1.13.10 ity of [place] [facility] 4.2.7.2.686 Iam as [id number] [facility] 009 Branch 2022-10-12 2022-10-12 Outpatient SFA SAM [id number] Robert 09:56:06 09:56:06 0831 F Viraj 2022-10-12 2022-10-12 Orders Doctor 1.2.840.0 [id number] Univers 00:00:00 00:00:00 Only Unassigned, 42968.1.1 ity of [place] 3.104.2.7 [place] .3.609013 Medica [place] .8 [place] 2022-10-05 2022-10-05 Shirt Bander Kath Parra 1.2.840.1 [id number] Univers 10:15:00 10:30:00 Visit Pob, Adc Lab Main 17211.1.1 ity of 3.104.2.7 [place] .3.706436 Medica [place] .[place] 2022-10-05 2022-10-05 [facility] [id number] Univers 10:15:00 10:15:00 KATH ity of [facility] 2022-10-04 2022-10-04 [facility] [id number] Univers 09:30:00 10:30:11 DERRELL ity o f [facility] 2022-10-04 2022-10-04 Orders Doctor 1.2.840.9 [id number] Univers 00:00:00 00:00:00 Only Unassigned, 60436.1.1 ity of [place] 3.104.2.7 [place] .3.112476 Medica l .8 [place] 2022-10-04 2022-10-04 Travel 1.2.840.1 1.2.067.489 [id number] Univers 00:00:00 00:00:00 49494.1.1 350.1.13.10 ity of 3.104.2.7 4.[place].7.3.698 [place] .3.927600 084.8 Medica l .8 [place] 2022-10-02 2022-10-02 Travel 1.2.840.1 1.2.009.288 [id number] Univers 00:00:00 00:00:00 45797.1.1 350.1.13.10 ity of 3.104.2.7 4.2.7.3.698 [place] .3.646521 084.8 Medica l .8 [place] 2022-09-06 2022-09-06 Outpatient R SARA OKEEFE [facility] [id number] Univers 08:45:00 08:45:[address] [facility] 2022-09-06 2022-09-06 Travel 1.2.840.1 1.2.375.651 [id number] Univers 00:00:00 00:00:00 22497.1.1 350.1.13.10 ity of 3.104.2.7 4.2.7.3.698 [place] .3.319278 084.8 Medica l .8 [place] 2022-07-26 2022-07-26 Shirt Bander Pathology 1.2.840.0 [id number] Univers 11:00:00 11:15:00 Visit Pcp-Lab 02090.1.1 ity of 3.104.2.7 [place] .3.334499 Medica l .8 [place] 2022-07-26 2022-07-26 Outpatient R SARA OKEEFE [facility] [id number] [facility] 08:45:00 09:37:46 SARA OKEEFE [facility] [place] [facility] 2022-07-26 2022-07-26 Orders Doctor 1.2.840.2 [id number] Univers 00:00:00 00:00:00 Only Unassigned, 38046.1.1 ity of [place] 3.104.2.7 [place] .3.779016 Medica l .8 [place] 2022-07-26 2022-07-26 Travel 1.2.840.1 1.2.624.765 [id number] Univers 00:00:00 00:00:00 70665.1.1 350.1.13.10 ity of 3.104.2.7 4.2.7.3.698 [place] .3.072469 084.8 Medica l .8 [place] 2022-07-24 2022-07-24 Outpatient [facility] [id number] Robert 13:24:12 13:24:12 0612 [place] 2022-06-27 2022-06-27 Outpatient SFA SFA [id number] Robert 13:49:18 13:49:18 0516 [place] 2022-06-21 2022-06-21 Outpatient SFA SFA [id number] Robert 08:52:50 08:52:50 0510 [facility] 2022-06-15 2022-06-15 Outpatient SFA SFA [id number] Robert 15:23:34 15:23:34 0504 [place] 2022-05-31 2022-05-31 Outpatient R SARA OKEEFE [facility] [id number] [facility] 08:45:00 08:45:00 SARA OKEEFE [facility] [place] [facility] 2022-05-30 2022-05-30 Outpatient SFA SFA [id number] Robert 11:55:27 11:55:27 0418 [facility] 2022-05-23 2022-05-23 Outpatient SFA SFA [id number] Robert 11:17:29 11:17:29 0411 [place] 2022-05-12 2022-05-12 Outpatient SFA SFA [id number] Robert 08:06:11 08:06:11 0331 [facility] 2022-05-11 2022-05-11 Outpatient SFA SFA [id number] Robert 13:45:44 13:45:44 0330 [facility] 2022-04-08 2022-04-08 Orders Doctor 1.2.840.6 [id number] Univers 00:00:00 00:00:00 Only Unassigned, 43176.1.1 ity of [place] 3.104.2.7 [place] .3.651141 Medica l .8 [place] 2022-02-21 2022-02-21 Orders Doctor 1.2.840.3 [id number] Univers 00:00:00 00:00:00 Only Unassigned, 05182.1.1 ity of [place] 3.104.2.7 [place] .3.454791 Medica l .8 [place] 2022-02-15 2022-02-15 Shirt Bander Pathology 1.2.840.5 [id number] Univers 13:30:00 13:45:00 Visit Pcp-Lab 77541.1.1 ity of 3.104.2.7 [place] .3.517777 Medica l .8 [place] 2022-02-15 2022-02-15 Outpatient R LARISSA [facility] [id number] Univers 08:45:00 10:52:26 DERRELL wesley o juan [facility] 2022-02-15 2022-02-15 Travel 1.2.840.1 1.2.317.540 [id number] Univers 00:00:00 00:00:00 61242.1.1 350.1.13.10 ity of 3.104.2.7 4.2.7.3.698 [place] .3.612773 084.8 Medica l .8 [place] 2022-01-11 2022-01-11 Outpatient R SARA OKEEFE [facility] [id number] Univers 11:00:00 12:39:[address] [facility] 2022-01-11 2022-01-11 Orders Doctor 1.2.840.8 [id number] Univers 00:00:00 00:00:00 Only Unassigned, 88905.1.1 ity of [place] 3.104.2.7 [place] .3.787094 Medica l .[place] 2022-01-11 2022-01-11 Travel 1.2.840.1 1.2.091.430 [id number] Univers 00:00:00 00:00:00 32393.1.1 350.1.13.10 ity of 3.104.2.7 4.[place].7.3.698 [place] .3.076623 084.8 Medica l .8 [place] 2021-11-24 2021-11-24 Outpatient R QUENTIN [facility] [id number] Univers 09:30:00 09:30:00 IGOR wesley o ju[facility] 2021-11-16 2021-11-16 Outpatient R SARA OKEEFE [facility] [id number] Univers 11:00:00 11:00:00 SARA OKEEFE [facility] [place] [facility] 2021-10-26 2021-10-26 Outpatient R LARISSA, [facility] [id number] Univers 08:00:00 08:00:00 DERRELL walters [facility] 2021-10-20 2021-10-20 Outpatient R QUENTIN, [facility] [id number] Univers 10:00:00 10:00:00 IGOR lupillo walters [facility] 2021-10-03 2021-10-03 Outpatient R JENNIFER, [facility] [id number] Univers 14:30:00 14:30:00 REX [facility] [place] [facility] 2021-09-21 2021-09-21 Outpatient R LARISSA, [facility] [id number] Univers 09:30:00 09:30:00 DERRELL walters [facility] 2021-08-24 2021-08-24 Outpatient R LARISSA, [facility] [id number] Univers 09:30:00 10:41:34 DERRELL walters [facility] 2021-08-24 2021-08-24 Travel 1.2.840.1 [id number] [id number] Univers 00:00:00 00:00:00 12875.1.1 350.1.13.10 ity of 3.104.2.7 4.[place].7.3.698 [place] .3.457276 084.8 Medica l .8 Branch 2021-07-25 2021-07-25 Outpatient R LARISSA, [facility] [id number] Univers 09:00:00 09:00:00 DERRELL walters [facility] 2021-06-22 2021-06-22 Outpatient R SARA OKEEFE [facility] [id number] Univers 11:15:00 12:18:[address] [facility] 2021-06-22 2021-06-22 Outpatient R SARA OKEEFE [facility] [id number] Univers 11:15:00 11:15:[address] [facility] 2021-06-22 2021-06-22 Travel 1.2.840.1 1.2.502.375 [id number] Univers 00:00:00 00:00:00 74533.1.1 350.1.13.10 ity of 3.104.2.7 4.[place].7.3.698 [place] .3.764624 084.8 Medica l .8 Branch 2021-06-20 2021-06-20 Outpatient R SELF, [facility] [id number] Univers 11:15:00 11:15:00 DERRELL ity o f [facility] 2021-06-20 2021-06-20 Outpatient R SELF, [facility] [id number] Univers 11:15:00 11:15:00 DERRELL babsy o [facility] 2021-06-08 2021-06-08 [facility] [id number] Univers 09:20:00 09:20:00 ROBEL MOOREFLL ity of [facility] 2021-06-08 2021-06-08 Patient Saavedra, 1.2.840.8 [id number] Univers 00:00:00 00:00:00 Secure Msg Igor 50749.1.1 ity of [place] 3.104.2.7 [place] .3.639469 Medica l .8 [place] 2021-06-07 2021-06-07 Emergency X [place], [facility] ERT [id number] Univers 09:13:00 10:50:00 GIGI w[facility] of [facility] 2021-06-07 2021-06-07 Emergency [place], [facility] 1.2.982.271 [id number] Univers 09:13:00 10:50:00 Gigi GILLESPIE 350.1.13.10 i ty of [place] 4.2.7.2.686 [facility] [id number] [facility] rogelio 084 [place] 2021-06-07 2021-06-07 Emergency Ny, 1.2.840.1 [id number] Univers 09:13:00 10:50:00 Gigi 20230.1.1 ity of 3.104.2.7 [place] .3.276338 Medica l .8 [place] 2021-06-07 2021-06-07 Outpatient R QUENTIN [facility] [id number] Univers 00:00:00 00:00:00 IGOR [facility] 2021-06-07 2021-06-07 Orders Doctor MOO 1.2.840.114 [id number] Univers 00:00:00 00:00:00 Only Unassigned, QUITA 350.1.13.10 ity of [place] [facility] 4.2.7.2.686 Iam as [id number] [address] 2021-06-07 2021-06-07 Travel 1.2.840.1 1.2.877.234 8294 [id number] Univers 00:00:00 00:00:00 63323.1.1 350.1.13.10 ity of 3.104.2.7 4.[place].3.698 [place] .3.625584 084.8 [place] l .8 [place] 2021-06-07 2021-06-07 Orders Doctor 1.2.840.0 [id number] Univers 00:00:00 00:00:00 Only Unassigned, 52329.1.1 ity of [place] 3.104.2.7 [place] .3.104078 Medica l .8 [place] 2021-06-03 2021-06-03 Travel 1.2.840.1 1.2.981.401 7682 4404 Univers 00:00:00 00:00:00 02690.1.1 350.1.13.10 ity of 3.104.2.7 4.[place]7.3.698 [place] .3.875605 084.8 [place] .8 [place] 2021-05-27 2021-05-27 Outpatient R QUENTIN [facility] [id number] Univers 00:00:00 00:00:00 IGOR [facility] 2021-05-27 2021-05-27 Outpatient R QUENTIN [facility] [id number] Univers 00:00:00 00:00:00 IGOR [facility] 2021-05-25 2021-05-25 Patient Doctor 1.2.840.8 [id number] Univers 00:00:00 00:00:00 Secure Msg Unassigned, 02062.1.1 ity of [place] 3.104.2.7 [place] .3.734719 Medica l .8 [place] 2021-05-25 2021-05-25 Patient Doctor 1.2.840.1 [id number] Univers 00:00:00 00:00:00 Secure Msg Unassigned, 14872.1.1 ity of [place] 3.104.2.7 [place] .3.411743 Medica l .8 [place] 2021-05-20 2021-05-20 Telephone Jones 1.2.840.7 [id number] [facility] 00:00:00 00:00:00 Best, 69733.1.1 ity of [place] 3.104.2.7 [place] .3.614587 Medica l .8 [place] 2021-05-20 2021-05-20 Telephone Jones 1.2.840.0 [id number] Univers 00:00:00 00:00:00 Best, 67603.1.1 ity of [place] 3.104.2.7 [place] .3.095940 Medica l .8 [place] 2021-05-18 2021-05-18 Travel 1.2.840.1 1.2.865.958 7993 6448 Univers 00:00:00 00:00:00 68008.1.1 350.1.13.10 ity of 3.104.2.7 4.2.7.3.698 [place] .3.516078 084.8 Medica l .8 [place] 2021-05-18 2021-05-18 Travel 1.2.840.1 1.2.964.012 8790 6448 Univers 00:00:00 00:00:00 85159.1.1 350.1.13.10 ity of 3.104.2.7 4.2.7.3.698 [place] .3.303104 084.8 [place] l .8 [place] 2021-05-17 2021-05-17 Shirt Bander Pcp-Lab [facility] 1.2.840.114 [id number] [id number] Univers 13:15:00 13:30:00 Visit Igor Saavedra PRIMARY 350.1.13.1 0 ity of CARE 4.2.7.2.686 Sujey BROWNLEE [phone] Me dical 366 [place] 2021-05-17 2021-05-17 Shirt Bander Igor Saavedra 1.2.840.1 1 [id number] Univers 13:15:00 13:30:00 Visit Pcp-Lab 78049.1.1 ity of 3.104.2.7 [place] .3.190997 Medica l .8 [place] 2021-05-17 2021-05-17 Shirt Bander Igor Saavedra 1.2.840.1 1 [id number] Univers 13:15:00 13:30:00 Visit Pcp-Lab 84391.1.1 ity of 3.104.2.7 [place] .3.107758 Medica l .8 [place] 2021-05-17 2021-05-17 Outpatient R SAAVEDRA, [facility] [id number] Univers 09:00:00 10:25:05 IGOR walters [facility] 2021-05-17 2021-05-17 Office Igor Saavedra 1.2.840.1 1020 [id number] Univers 09:00:00 10:25:05 Visit Deonte Joel 65618.1.1 ity of 3.104.2.7 [place] .3.738488 Medica l .8 [place] 2021-05-17 2021-05-17 Outpatient R SAAVEDRA, [facility] [id number] Univers 09:00:00 10:25:05 IGOR [facility] 2021-05-17 2021-05-17 Outpatient R SAAVEDRA, [facility] [id number] Univers 09:30:00 09:30:00 IGOR [facility] 2021-05-17 2021-05-17 Travel 1.2.840.1 1.2.325.548 1331 [id number] Univers 00:00:00 00:00:00 10673.1.1 350.1.13.10 ity of 3.104.2.7 4.2.7.3.698 [place] .3.746969 084.8 Medica l .8 [place] 2021-05-17 2021-05-17 Travel 1.2.840.1 1.2.799.832 1045 5569 Univers 00:00:00 00:00:00 70506.1.1 350.1.13.10 ity of 3.104.2.7 4.[place].7.3.698 [place] .3.912140 084.8 Medica l .8 [place] 2021-04-26 2021-04-26 Outpatient R [facility] [id number] Univers 09:00:00 09:00:00 [facility] [place] [facility] 2021-04-26 2021-04-26 Outpatient R WENDY [facility] [id number] Univers 09:00:00 09:00:00 ATTENDING [facility] [place] [facility] 2021-04-20 2021-04-20 Outpatient R SARA OKEEFE [facility] [id number] Univers 08:45:00 08:45:00 SARA OKEEFE [facility] [place] [facility] 2021-04-11 2021-04-11 Outpatient SALLY FIGUEROA [facility] [id number] Univers 08:40:00 08:40:00 SALLY MITCHELL [facility] [place] [facility] 2021-04-11 2021-04-11 Outpatient SALLY FIGUEROA [facility] [id number] Univers 08:40:00 08:40:00 SALLY MITCHELL [facility] [place] [facility] 2021-03-21 2021-03-21 Outpatient SALLY FIGUEROA [facility] [id number] Univers 08:00:00 08:00:00 SALLY MITCHELL [facility] [place] [facility] 2021-03-17 2021-03-17 Patient Doctor 1.2.840.3 [id number] Univers 00:00:00 00:00:00 Secure Msg Unassigned, 42330.1.1 it[place] of [place] 3.104.2.7 [place] .3.229963 Medica l .8 [place] 2021-03-17 2021-03-17 Patient Doctor 1.2.840.1 [id number] Univers 00:00:00 00:00:00 Secure Msg Unassigned, 63462.1.1 ity of [place] 3.104.2.7 [place] .3.355487 Medica l .8 [place] 2021-03-17 2021-03-17 Patient Doctor 1.2.840.3 [id number] Univers 00:00:00 00:00:00 Secure Msg Unassigned, 34462.1.1 ity of [place] 3.104.2.7 [place] .3.500140 Medica l .8 [place] 2021-03-16 2021-03-16 Shirt Bander Sal[place] 1.2.840.1 1020 [id number] Univers 13:15:00 13:30:00 Visit Pcp-Lab 44152.1.1 ity of 3.104.2.7 [place] .3.500204 Medica l .8 [place] 2021-03-16 2021-03-16 Shirt Bander Salb[place] 1.2.840.1 1020 [id number] Univers 13:15:00 13:30:00 Visit Pcp-Lab 17512.1.1 ity of 3.104.2.7 [place] .3.315150 Medica l .8 [place] 2021-03-16 2021-03-16 Outpatient Tonya LOCKWOOD [facility] [id number] Univers 13:15:00 13:15:[address] [facility] 2021-03-16 2021-03-16 Outpatient SARA DELGADILLO [facility] [id number] Univers 12:00:00 12:09:[address] [facility] 2021-03-16 2021-03-16 Outpatient SARA DELGADILLO [facility] [id number] Univers 12:00:00 12:09:[address] [facility] 2021-03-16 2021-03-16 Outpatient R SARA OKEEFE [facility] [id number] Univers 12:00:00 12:00:00 SARA OKEEFE ity of [facility] 2021-03-16 2021-03-16 Travel 1.2.840.1 1.2.690.322 8604 [id number] Univers 00:00:00 00:00:00 03531.1.1 350.1.13.10 ity of 3.104.2.7 4.2.7.3.698 [place] .3.065850 084.8 Medica l .8 [place] 2021-03-16 2021-03-16 Travel 1.2.840.1 1.2.387.592 9489 3919 Univers 00:00:00 00:00:00 21031.1.1 350.1.13.10 ity of 3.104.2.7 4.2.7.3.698 [place] .3.684649 084.8 Medica l .8 [place] 2021-03-11 2021-03-11 Emergency [facility] [id number] Univers 09:44:00 13:06:00 HALIMA ity of [facility] 2021-03-11 2021-03-11 Emergency Geeta, 1.2.840.7 [id number] Univers 09:44:00 13:06:00 Halima J 32052.1.1 ity of 3.104.2.7 [place] .3.369628 Medica l .8 [place] 2021-03-11 2021-03-11 Emergency [facility] [id number] Univers 09:44:00 13:06:00 HALIMA ity of [facility] 2021-03-11 2021-03-11 Emergency Geeta, 1.2.840.2 [id number] Univers 09:44:00 13:06:00 Halima J 19884.1.1 ity of 3.104.2.7 [place] .3.512014 Medica l .8 [place] 2021-03-11 2021-03-11 Emergency [facility] [id number] Univers 09:44:00 13:06:[address] [facility] 2021-03-11 2021-03-11 Emergency X GEETA, [facility] ERT [id number] Univers 09:44:00 09:44:[address] [facility] 2021-03-11 2021-03-11 Travel 1.2.840.1 1.2.480.972 7177 1313 Univers 00:00:00 00:00:00 58474.1.1 350.1.13.10 ity of 3.104.2.7 4.2.7.3.698 [place] .3.527904 084.8 Medica l .8 [place] 2021-03-11 2021-03-11 Travel 1.2.840.1 1.2.179.879 5763 1313 Univers 00:00:00 00:00:00 49268.1.1 350.1.13.10 ity of 3.104.2.7 4.2.7.3.698 [place] .3.670129 084.8 Medica l .8 [place] 2021-03-08 2021-03-08 Shirt Bander Sal[place] 1.2.840.1 1020 [id number] Univers 15:00:00 15:15:00 Visit Pcp-Lab 36680.1.1 ity of 3.104.2.7 [place] .3.645438 Medica l .8 [place] 2021-03-08 2021-03-08 Shirt Bander Sal[place] 1.2.840.1 1020 [id number] Univers 15:00:00 15:15:00 Visit Pcp-Lab 39353.1.1 ity of 3.104.2.7 [place] .3.489112 Medica l .8 [place] 2021-03-08 2021-03-08 Outpatient R FABIÁN [facility] [id number] Univers 15:00:00 15:00:[address] [facility] 2021-01-31 2021-01-31 Outpatient R LARISSA [facility] [id number] Univers 10:15:00 10:55:06 DERRELL [facility] 2020-12-29 2020-12-29 Outpatient R SELF, [facility] [id number] Univers 08:00:00 08:41:00 DERRELL [facility] 2020-12-29 2020-12-29 Outpatient R SELF, [facility] [id number] Univers 08:00:00 08:41:00 DERRELL walters [facility] 2020-12-29 2020-12-29 Travel 1.2.840.1 1.2.861.951 [id number] Univers 00:00:00 00:00:00 96590.1.1 350.1.13.10 ity of 3.104.2.7 4.2.7.3.698 [place] .3.565882 084.8 Medica l .8 [place] 2020-12-29 2020-12-29 Travel 1.2.840.1 1.2.235.191 9493 8557 Univers 00:00:00 00:00:00 55217.1.1 350.1.13.10 ity of 3.104.2.7 4.2.7.3.698 [place] .3.023276 084.8 Medica l .8 [place] 2020-12-22 2020-12-22 Outpatient R SELF, [facility] [id number] Univers 09:30:00 09:30:00 [facility]ERRELL [facility] 2020-12-22 2020-12-22 Outpatient R SELF, [facility] [id number] Univers 09:30:00 09:30:00 DERRELL walters [facility] 2020-11-26 2020-11-26 Orders Doctor MOO 1.2.840.114 [id number] Univers 00:00:00 00:00:00 Only Unassigned, QUITA 350.1.13.10 ity of [place] [facility] 4.2.7.2.686 Iam as [id number] [address] 2020-11-10 2020-11-10 Outpatient R SHE, [facility] [id number] Univers 09:30:00 09:30:[address] [facility] 2020-11-10 2020-11-10 Orders Doctor 1.2.840.0 [id number] Univers 00:00:00 00:00:00 Only Unassigned, 62379.1.1 ity of [place] 3.104.2.7 [place] .3.475354 Medica l .8 [place] 2020-11-10 2020-11-10 Travel 1.2.840.1 1.2.131.928 [id number] 8453 Univers 00:00:00 00:00:00 73688.1.1 350.1.13.10 ity of 3.104.2.7 4.2.7.3.698 [place] .3.551130 084.8 Medica l .8 [place] 2020-10-11 2020-10-11 Outpatient R SELF, [facility] [id number] Univers 08:00:00 08:00:00 DERRELL wesley o [facility] 2020-10-11 2020-10-11 Travel 1.2.840.1 1.2.016.515 [id number] 2044 Univers 00:00:00 00:00:00 78502.1.1 350.1.13.10 ity of 3.104.2.7 4.2.7.3.698 [place] .3.828305 084.8 Medica l .8 [place] 2020-09-13 2020-09-13 Outpatient R SELF, [facility] [id number] Univers 08:00:00 08:00:00 DERRELL walters [facility] 2020-09-13 2020-09-13 Travel 1.2.840.1 1.2.996.385 2016 0698 Univers 00:00:00 00:00:00 59845.1.1 350.1.13.10 ity of 3.104.2.7 4.2.7.3.698 [place] .3.596482 084.8 Medica l .8 [place] 2020-09-02 2020-09-02 Emergency Rose, 1.2.840.1 [id number] Univers 16:12:00 20:21:00 Patti 18383.1.1 ity of 3.104.2.7 [place] .3.187716 Medica l .8 [place] 2020-09-02 2020-09-02 Emergency [facility] 1.2.840.114 [id number] 16:12:00 20:21:00 Patti Gillespie 350.1.13.10 [place] 4.2.7.2.686 [place] 138.4296654 084 2020-09-02 2020-09-02 Travel 1.2.840.1 1.2.670.094 4190 3177 Univers 00:00:00 00:00:00 62765.1.1 350.1.13.10 ity of 3.104.2.7 4.2.7.3.698 [facility] .3.084225 084.8 Medica l .8 [place] 2020-09-02 2020-09-02 Orders Doctor 1.2.840.2 [id number] Univers 00:00:00 00:00:00 Only Unassigned, 22353.1.1 ity of [place] 3.104.2.7 [place] .3.116346 Medica l .8 [place] 2020-09-02 2020-09-02 Orders Doctor MOO 1.2.840.114 [id number] 00:00:00 00:00:00 Only Unassigned, QUITA 350.1.13.10 [place] [facility] 4.2.7.2.686 [id number] 2020-08-25 2020-08-25 Outpatient R [facility] [id number] Univers 09:15:00 09:15:[address] [facility] 2020-08-09 2020-08-09 [facility] [id number] Univers 08:45:00 08:45:00 DERRELL [facility] 2020-06-28 2020-06-28 [facility] [id number] Univers 13:45:00 13:45:[address] [facility] 2020-06-21 2020-06-21 [facility] [id number] Univers 15:15:00 15:15:00 DERRELL [facility] 2020-06-07 2020-06-07 Outpatient R SELF, [facility] [id number] Univers 08:45:00 08:45:00 DERRELL [facility] 2020-05-25 2020-05-25 Outpatient R MICHELLE, [facility] [id number] Univers 08:30:00 08:30:00 CRISTO [facility] [place] [facility] 2020-03-15 2020-03-15 Outpatient R FABIÁN, [facility] [id number] Univers 13:00:00 13:00:00 SALBADOR [facility] [place] [facility] 2020-03-08 2020-03-08 Outpatient R SELF, [facility] [id number] Univers 13:00:00 13:00:00 [facility]ERRELL [facility] 2020-02-16 2020-02-16 Outpatient R SELF, [facility] [id number] Univers 11:00:00 11:00:00 DERRELL [facility] 2020-01-27 2020-01-27 Outpatient R SELF, [facility] [id number] Univers 11:45:00 11:45:00 DERRELL [facility] 2020-01-19 2020-01-19 Outpatient R SELF, [facility] [id number] Univers 08:00:00 08:00:00 DERRELL [facility] 2019-12-22 2019-12-22 Outpatient R SELF, [facility] [id number] Univers 08:45:00 08:45:00 DERRELL [facility] 2019-12-05 2019-12-05 Outpatient R ALEISHA, [facility] [id number] Univers 10:45:00 10:45:00 JEWEL [facility] [place] [facility] 2019-10-23 2019-10-23 Outpatient R SANDY, [facility] [id number] Univers 09:15:00 09:15:00 KATH [facility] [place] [facility] 2019-10-15 2019-10-15 Outpatient R SHE, [facility] [id number] Univers 11:30:00 11:30:00 ROBERT [facility] [place] [facility] 2019-10-01 2019-10-01 Outpatient R SHE, [facility] [id number] Univers 14:30:00 14:30:[address] [facility] 2019-09-01 2019-09-01 Outpatient R LARISSA, [facility] [id number] Univers 08:45:00 08:45:00 DERRELL [facility] 2019-08-06 2019-08-06 Outpatient R RAUSCH, [facility] [id number] Univers 13:00:00 13:00:00 ANGELA [facility] [place] [facility] Results Test Description Test Time Test Comments Results Result Comments Source LAB ONLY CELIAC SCREEN IGA 2022-10-23 19:09:14 Test Item Value Reference Range Interpretation Comme nts Tissue Transglutaminase (tTG) Ab, IgA Negative Negative Interpretation (test code = 54136-2) Deamidated Gliadin Peptide (DGP) Ab, IgA Negative Negative Interpretation (test code = 78116-0) Tissue Transglutaminase (tTG) Ab, IgA <=7.0 (test code = 1230631597) Deamidated Gliadin Peptide (DGP) Ab, IgA 0.4 U/mL <=7.0 (test code = 4577641716) ZAINAB (test code = ZAINAB) < 7 U/mL ? Negative7 - 10 U/mL ?Equivocal> 10 U/mL ?Positive In case of equivocal results, we recommend to retest the patient after 8 -12 weeks. Lab Interpretation (test code = 63281-5) [id number] 20:24:44 Test Item Value Reference Range Interpretation Comments Total IgA (test code = 0179143100) 78.3 U/mL 70-312 Lab Interpretation (test code = Normal 85564-3) [facility] [id number] 17:30:19 Test Item Value Reference Range Interpretation Comments FERRITIN (test code = 4.8 ng/mL 6.0-137.0 L 6658491257) ZAINAB (test code = ZAINAB) Biotin has been reported to cause a negative bias, interpret results relative to patient's use of biotin. Lab Interpretation (test Abnormal code = 92071-8) [facility] [id number] 17:03:34 Test Item Value Reference Range Interpretation Comments IRON (test code = 2389672910) 34 ug/dL 50-160 L TIBC (test code = 5481288038) 515 ug/dL 250-410 H % FE SAT (test code = 0730369989) 7 % 20-50 L Lab Interpretation (test code = Abnormal 46822-2) [facility]2023-08-24 19:48:06 Test Item Value Reference Range Interpretation Comments [place] (test code = 0.5 mmol/L 0.6-1.2 L 1548181313) ZAINAB (test code = ZAINAB) Toxic Range: ? Greater than 1.2 mmol/L Lab Interpretation (test Abnormal code = 10194-3) [facility]2023-08-24 19:48:06 Test Item Value Reference Range Interpretation Comments [place] (test code = 0.5 mmol/L 0.6-1.2 L 2554167133) ZAINAB (test code = ZAINAB) Toxic Range: ? Greater than 1.2 mmol/L Lab Interpretation (test Abnormal code = 65139-1) [facility]2023-08-24 19:48:06 Test Item Value Reference Range Interpretation Comments [place] (test code = 0.5 mmol/L 0.6-1.2 L 2094419206) ZAINAB (test code = ZAINAB) Toxic Range: ? Greater than 1.2 mmol/L Lab Interpretation (test Abnormal code = 79377-6) [facility] [id number] 17:24:34 Test Item Value Reference Range Interpretation Comments TSH (test code = 1.07 See_Comment [Automated message] 7943686222) The system [employer] generated this result transmitted ref erence range: 0.45 - 4 .70 mIU/L. The refe rence range was not u sed to interpret this result as normal/abnor mal. Lab Interpretation (test Normal code = 25819-1) [facility] [id number] 17:24:34 Test Item Value Reference Range Interpretation Comments TSH (test code = 1.07 See_Comment [Automated message] 4523363917) The system [employer] generated this result transmitted ref erence range: 0.45 - 4 .70 mIU/L. The refe rence range was not u sed to interpret this result as normal/abnor mal. Lab Interpretation (test Normal code = 13436-4) [facility] [id number] 17:24:34 Test Item Value Reference Range Interpretation Comments TSH (test code = 1.07 See_Comment [Automated message] 9891046077) The system [employer] generated this result transmitted ref erence range: 0.45 - 4 .70 mIU/L. The refe rence range was not u sed to interpret this result as normal/abnor mal. Lab Interpretation (test Normal code = 67846-4) [facility]. METABOLIC PANEL (13364)2022-10-05 16:54:48 Test Item Value Reference Range Interpretation Comments NA (test code = 140 mmol/L 135-145 8000551408) K (test code = 4.6 mmol/L 3.5-5.0 8148795286) CL (test code = 106 mmol/L 98-108 4417559476) CO2 TOTAL (test code = 28 mmol/L 23-31 7995525778) AGAP (test code = 6 2-16 2426971631) BUN (test code = 5 mg/dL 7-23 L 1105724328) GLUCOSE (test code = 90 mg/dL 70-110 4196196313) CREATININE (test code = 0.54 mg/dL 0.50-1.04 8000793108) TOTAL BILI (test code = 0.1 mg/dL 0.1-1.1 6771063044) CALCIUM (test code = 9.6 mg/dL 8.6-10.6 0140886887) T PROTEIN (test code = 6.2 g/dL 6.3-8.2 L 9101499997) ALBUMIN (test code = 4.0 g/dL 3.5-5.0 1854113865) ALK PHOS (test code = 125 U/L 34-122 H 7498600724) ALTv (test code = 29 U/L 5-35 1742-6) AST(SGOT) (test code = 24 U/L 13-40 7968066090) eGFR (test code = 122.1 mL/min/1.73m2 1762553286) ZAINAB (test code = ZAINAB) Association of [...] tests). Lab Interpretation Abnormal (test code = 10242-3) [facility] (48228)(TOTAL CHOLESTEROL, TRIGLYCERIDES, HDL)2022-10-05 16:54:48 Test Item Value Reference Range Interpretation Comments CHOL (test code = 6379823437) 183 mg/dL 120-200 HDL (test code = 5404708657) 40 mg/dL >=50 L HDLC RATIO (test code = 8862916653) 4.6 <=4.5 H TRIG (test code = 5200063651) 128 mg/dL 30-170 LDL CHOL (test code = 87384-3) 117 mg/dL <=160 VLDL (test code = 1663275721) 26 mg/dL 5-60 Lab Interpretation (test code = Abnormal 10777-9) [facility] METABOLIC PANEL (83111)2022-10-05 16:54:48 Test Item Value Reference Range Interpretation Comments NA (test code = 140 mmol/L 135-145 1803304284) K (test code = 4.6 mmol/L 3.5-5.0 6681847416) CL (test code = 106 mmol/L 98-108 1102210283) CO2 TOTAL (test code = 28 mmol/L 23-31 4489999327) AGAP (test code = 6 2-16 5929500062) BUN (test code = 5 mg/dL 7-23 L 9906257823) GLUCOSE (test code = 90 mg/dL 70-110 0142099430) CREATININE (test code = 0.54 mg/dL 0.50-1.04 6956881135) TOTAL BILI (test code = 0.1 mg/dL 0.1-1.5 7636592616) CALCIUM (test code = 9.6 mg/dL 8.6-10.6 7989160653) T PROTEIN (test code = 6.2 g/dL 6.3-8.2 L 5118083611) ALBUMIN (test code = 4.0 g/dL 3.5-5.0 4964959795) ALK PHOS (test code = 125 U/L 34-122 H 2356654207) ALTv (test code = 29 U/L 5-35 1742-6) AST(SGOT) (test code = 24 U/L 13-40 6712896164) eGFR (test code = 122.1 mL/min/1.73m2 9546534469) ZAINAB (test code = ZAINAB) Association of [...] tests). Lab Interpretation Abnormal (test code = 35963-3) [id number]TOTAL CHOLESTEROL, TRIGLYCERIDES, HDL)2022-10-05 16:54:48 Test Item Value Reference Range Interpretation Comments CHOL (test code = 9348799451) 183 mg/dL 120-200 HDL (test code = 6167951653) 40 mg/dL >=50 L HDLC RATIO (test code = 9077678151) 4.6 <=4.5 H TRIG (test code = 2219204418) 128 mg/dL 30-170 LDL CHOL (test code = 71040-9) 117 mg/dL <=160 VLDL (test code = 3315566513) 26 mg/dL 5-60 Lab Interpretation (test code = Abnormal 63189-5) [facility]25366[facility]2022-10-05 16:54:48 Test Item Value Reference Range Interpretation Comments NA (test code = 140 mmol/L 135-145 3053725320) K (test code = 4.6 mmol/L 3.5-5.0 0041770955) CL (test code = 106 mmol/L 98-108 1527573211) CO2 TOTAL (test code = 28 mmol/L 23-31 5145738803) AGAP (test code = 6 2-16 6428861988) BUN (test code = 5 mg/dL 7-23 L 5367188319) GLUCOSE (test code = 90 mg/dL 70-110 1753455424) CREATININE (test code = 0.54 mg/dL 0.50-1.04 3134221539) TOTAL BILI (test code = 0.1 mg/dL 0.1-1.8 3814906890) CALCIUM (test code = 9.6 mg/dL 8.6-10.6 9943375405) T PROTEIN (test code = 6.2 g/dL 6.3-8.2 L 1170234912) ALBUMIN (test code = 4.0 g/dL 3.5-5.0 1150231760) ALK PHOS (test code = 125 U/L 34-122 H 7355474365) ALTv (test code = 29 U/L 5-35 1742-6) AST(SGOT) (test code = 24 U/L 13-40 9257206623) eGFR (test code = 122.1 mL/min/1.73m2 6054880216) ZAINAB (test code = ZAINAB) Association of [...] tests). Lab Interpretation Abnormal (test code = 30102-7) [facility]51349)(TOTAL CHOLESTEROL, TRIGLYCERIDES, HDL)2022-10-05 16:54:48 Test Item Value Reference Range Interpretation Comments CHOL (test code = 1497368508) 183 mg/dL 120-200 HDL (test code = 7036189864) 40 mg/dL >=50 L HDLC RATIO (test code = 2951269650) 4.6 <=4.5 H TRIG (test code = 2624865004) 128 mg/dL 30-170 LDL CHOL (test code = 84922-5) 117 mg/dL <=160 VLDL (test code = 4633604130) 26 mg/dL 5-60 Lab Interpretation (test code = Abnormal 66767-0) [facility]22-10-05 15:51:11 Test Item Value Reference Range Interpretation Comments HGB A1C (test code = 5.1 % 4.0-5.7 4548-4) ZAINAB (test code = ZAINAB) Reference RangesNormal: <5.7%Prediabetes: 5.7 - 6.4%Diabetes: > 6.5% Lab Interpretation (test Normal code = 40888-5) [facility]2022-10-05 15:51:11 Test Item Value Reference Range Interpretation Comments HGB A1C (test code = 5.1 % 4.0-5.7 4548-4) ZAINAB (test code = ZAINAB) Reference RangesNormal: <5.7%Prediabetes: 5.7 - 6.4%Diabetes: > 6.5% Lab Interpretation (test Normal code = 89594-5) [facility]2022-10-05 15:51:11 Test Item Value Reference Range Interpretation Comments HGB A1C (test code = 5.1 % 4.0-5.7 4548-4) ZAINAB (test code = ZAINAB) Reference RangesNormal: <5.7%Prediabetes: 5.7 - 6.4%Diabetes: > 6.5% Lab Interpretation (test Normal code = 80604-2) [facility] [id number] 15:20:32 Test Item Value Reference Range Interpretation Comments WBC (test code = 6.67 See_Comment [Automated 6690-2) message] The sy stem which generated this result transmitted reference range : 4.30 - 11.10 10*3/?L. The reference range was not used to interpret this result as normal/abnormal . RBC (test code = 4.04 See_Comment [Automated 789-8) message] The sy stem which generated this result transmitted reference range : 3.93 - 5.25 10*6/?L. The reference range was not used to interpret this result as normal/abnormal . HGB (test code = 8.9 g/dL 11.6-15.0 L 718-7) HCT (test code = 30.0 % 35.7-45.2 L 4544-3) MCV (test code = 74.3 fL 80.6-95.5 L 787-2) MCH (test code = 22.0 pg 25.9-32.8 L 785-6) MCHC (test code = 29.7 g/dL 31.6-35.1 L 786-4) RDW-SD (test code = 47.8 fL 39.0-49.9 76918-6) RDW-CV (test code = 18.0 % 12.0-15.5 H 788-0) PLT (test code = 296 See_Comment [Automated 777-3) message] The sy stem which generated this result transmitted reference range : 166 - 358 10*3/ ?L. The reference r kuldip was not used to interpret this result as normal/abnormal . MPV (test code = 10.7 fL 9.5-12.9 80043-3) NRBC/100 WBC (test 0.0 See_Comment [Automat ed code = [id number]) message] The system which generated this result transmitted reference range : 0.0 - 10.0 /100 WBCs. The refer ence range was not u sed to interpret th is result as normal/abnormal . NRBC x10^3 (test code See_Comment [Auto mated = [id number]) message] The s ystem which generated this result transmitted reference range : 10*3/?L. The reference range was not used to interpret this result as normal/abnormal . GRAN MAT (NEUT) % 70.0 % (test code = 770-8) IMM GRAN % (test code 0.40 % = 8208004903) LYMPH % (test code = 18.7 % 736-9) MONO % (test code = 5.7 % 5905-5) EOS % (test code = 4.5 % 713-8) BASO % (test code = 0.7 % 706-2) GRAN MAT x10^3(ANC) 4.66 10*3/uL 1.88-7.09 (test code = 8032436321) IMM GRAN x10^3 (test 0.03 10*3/uL 0.00-0.06 code = 2206683197) LYMPH x10^3 (test code 1.25 10*3/uL 1.32-3.29 L = 731-0) MONO x10^3 (test code 0.38 10*3/uL 0.33-0.92 = 742-7) EOS x10^3 (test code = 0.30 10*3/uL 0.03-0.39 711-2) BASO x10^3 (test code 0.05 10*3/uL 0.01-0.07 = 704-7) Lab Interpretation Abnormal (test code = 69161-8) [facility] WITH [id number] 15:20:32 Test Item Value Reference Range Interpretation Comments WBC (test code = 6.67 See_Comment [Automated 8790-2) message] The sy stem which generated this result transmitted reference range : 4.30 - 11.10 10*3/?L. The reference range was not used to interpret this result as normal/abnormal . RBC (test code = 4.04 See_Comment [Automated 119-8) message] The sy stem which generated this result transmitted reference range : 3.93 - 5.25 10*6/?L. The reference range was not used to interpret this result as normal/abnormal . HGB (test code = 8.9 g/dL 11.6-15.0 L 718-7) HCT (test code = 30.0 % 35.7-45.2 L 4544-3) MCV (test code = 74.3 fL 80.6-95.5 L 787-2) MCH (test code = 22.0 pg 25.9-32.8 L 785-6) MCHC (test code = 29.7 g/dL 31.6-35.1 L 786-4) RDW-SD (test code = 47.8 fL 39.0-49.9 15437-3) RDW-CV (test code = 18.0 % 12.0-15.5 H 788-0) PLT (test code = 296 See_Comment [Automated 777-3) message] The sy stem which generated this result transmitted reference range : 166 - 358 10*3/ ?L. The reference r kuldip was not used to interpret this result as normal/abnormal . MPV (test code = 10.7 fL 9.5-12.9 54764-9) NRBC/100 WBC (test 0.0 See_Comment [Automat ed code = 9600425362) message] The system which generated this result transmitted reference range : 0.0 - 10.0 /100 WBCs. The refer ence range was not u sed to interpret th is result as normal/abnormal . NRBC x10^3 (test code See_Comment [Auto mated = 4730111667) message] The s ystem which generated this result transmitted reference range : 10*3/?L. The reference range was not used to interpret this result as normal/abnormal . GRAN MAT (NEUT) % 70.0 % (test code = 770-8) IMM GRAN % (test code 0.40 % = 5206721928) LYMPH % (test code = 18.7 % 736-9) MONO % (test code = 5.7 % 5905-5) EOS % (test code = 4.5 % 713-8) BASO % (test code = 0.7 % 706-2) GRAN MAT x10^3(ANC) 4.66 10*3/uL 1.88-7.09 (test code = 9171616439) IMM GRAN x10^3 (test 0.03 10*3/uL 0.00-0.06 code = 8939682263) LYMPH x10^3 (test code 1.25 10*3/uL 1.32-3.29 L = 731-0) MONO x10^3 (test code 0.38 10*3/uL 0.33-0.92 = 742-7) EOS x10^3 (test code = 0.30 10*3/uL 0.03-0.39 711-2) BASO x10^3 (test code 0.05 10*3/uL 0.01-0.07 = 704-7) Lab Interpretation Abnormal (test code = 30795-0) [facility] WITH [id number] 15:20:32 Test Item Value Reference Range Interpretation Comments WBC (test code = 6.67 See_Comment [Automated 6690-2) message] The sy stem which generated this result transmitted reference range : 4.30 - 11.10 10*3/?L. The reference range was not used to interpret this result as normal/abnormal . RBC (test code = 4.04 See_Comment [Automated 789-8) message] The sy stem which generated this result transmitted reference range : 3.93 - 5.25 10*6/?L. The reference range was not used to interpret this result as normal/abnormal . HGB (test code = 8.9 g/dL 11.6-15.0 L 718-7) HCT (test code = 30.0 % 35.7-45.2 L 4544-3) MCV (test code = 74.3 fL 80.6-95.5 L 787-2) MCH (test code = 22.0 pg 25.9-32.8 L 785-6) MCHC (test code = 29.7 g/dL 31.6-35.1 L 786-4) RDW-SD (test code = 47.8 fL 39.0-49.9 02958-1) RDW-CV (test code = 18.0 % 12.0-15.5 H 788-0) PLT (test code = 296 See_Comment [Automated 777-3) message] The sy stem which generated this result transmitted reference range : 166 - 358 10*3/ ?L. The reference r kuldip was not used to interpret this result as normal/abnormal . MPV (test code = 10.7 fL 9.5-12.9 13411-0) NRBC/100 WBC (test 0.0 See_Comment [Automat ed code = 7070837663) message] The system which generated this result transmitted reference range : 0.0 - 10.0 /100 WBCs. The refer ence range was not u sed to interpret th is result as normal/abnormal . NRBC x10^3 (test code See_Comment [Auto mated = 2845499338) message] The s ystem which generated this result transmitted reference range : 10*3/?L. The reference range was not used to interpret this result as normal/abnormal . GRAN MAT (NEUT) % 70.0 % (test code = 770-8) IMM GRAN % (test code 0.40 % = 3630749780) LYMPH % (test code = 18.7 % 736-9) MONO % (test code = 5.7 % 5905-5) EOS % (test code = 4.5 % 713-8) BASO % (test code = 0.7 % 706-2) GRAN MAT x10^3(ANC) 4.66 10*3/uL 1.88-7.09 (test code = 0342132549) IMM GRAN x10^3 (test 0.03 10*3/uL 0.00-0.06 code = 8286565264) LYMPH x10^3 (test code 1.25 10*3/uL 1.32-3.29 L = 731-0) MONO x10^3 (test code 0.38 10*3/uL 0.33-0.92 = 742-7) EOS x10^3 (test code = 0.30 10*3/uL 0.03-0.39 711-2) BASO x10^3 (test code 0.05 10*3/uL 0.01-0.07 = 704-7) Lab Interpretation Abnormal (test code = 33107-7) [facility]2023-06-14 17:27:33 Test Item Value Reference Range Interpretation Comments [place] (test code = 0.3 mmol/L 0.6-1.2 L 2571618424) ZAINAB (test code = ZAINAB) Toxic Range: ? Greater than 1.2 mmol/L Lab Interpretation (test Abnormal code = 05010-2) [facility]2023-06-14 17:27:33 Test Item Value Reference Range Interpretation Comments [place] (test code = 0.3 mmol/L 0.6-1.2 L 5385322200) ZAINAB (test code = ZAINAB) Toxic Range: ? Greater than 1.2 mmol/L Lab Interpretation (test Abnormal code = 45034-4) [facility]2023-06-14 17:27:33 Test Item Value Reference Range Interpretation Comments [place] (test code = 0.3 mmol/L 0.6-1.2 L 9536440588) ZAINAB (test code = ZAINAB) Toxic Range: ? Greater than 1.2 mmol/L Lab Interpretation (test Abnormal code = 63849-1) [facility]2023-06-14 17:27:33 Test Item Value Reference Range Interpretation Comments [place] (test code = 0.3 mmol/L 0.6-1.2 L 0821265443) ZAINAB (test code = ZAINAB) Toxic Range: ? Greater than 1.2 mmol/L Lab Interpretation (test Abnormal code = 10221-1) [facility]2023-06-14 17:27:33 Test Item Value Reference Range Interpretation Comments [place] (test code = 0.3 mmol/L 0.6-1.2 L 3955063370) ZAINAB (test code = ZAINAB) Toxic Range: ? Greater than 1.2 mmol/L Lab Interpretation (test Abnormal code = 75901-8) [facility]2023-06-14 17:27:33 Test Item Value Reference Range Interpretation Comments [place] (test code = 0.3 mmol/L 0.6-1.2 L 3979698893) ZAINAB (test code = ZIANAB) Toxic Range: ? Greater than 1.2 mmol/L Lab Interpretation (test Abnormal code = 69266-5) [facility]2023-06-14 17:27:33 Test Item Value Reference Range Interpretation Comments [place] (test code = 0.3 mmol/L 0.6-1.2 L 9618422923) ZAINAB (test code = ZAINAB) Toxic Range: ? Greater than 1.2 mmol/L Lab Interpretation (test Abnormal code = 92761-8) [facility]2023-06-14 17:27:33 Test Item Value Reference Range Interpretation Comments [place] (test code = 0.3 mmol/L 0.6-1.2 L 7381324912) ZAINAB (test code = ZAINAB) Toxic Range: ? Greater than 1.2 mmol/L Lab Interpretation (test Abnormal code = 30578-9) [facility]2023-06-14 17:27:33 Test Item Value Reference Range Interpretation Comments [place] (test code = 0.3 mmol/L 0.6-1.2 L 5874466512) ZAINAB (test code = ZAINAB) Toxic Range: ? Greater than 1.2 mmol/L Lab Interpretation (test Abnormal code = 41761-4) [facility]2023-06-14 17:27:33 Test Item Value Reference Range Interpretation Comments [place] (test code = 0.3 mmol/L 0.6-1.2 L 9520427665) ZAINAB (test code = ZAINAB) Toxic Range: ? Greater than 1.2 mmol/L Lab Interpretation (test Abnormal code = 44064-9) [facility]2023-06-14 17:27:33 Test Item Value Reference Range Interpretation Comments [place] (test code = 0.3 mmol/L 0.6-1.2 L 1577946037) ZAINAB (test code = ZAINAB) Toxic Range: ? Greater than 1.2 mmol/L Lab Interpretation (test Abnormal code = 83583-5) [facility]2023-06-14 17:27:33 Test Item Value Reference Range Interpretation Comments [place] (test code = 0.3 mmol/L 0.6-1.2 L 4456679345) ZAINAB (test code = ZAINAB) Toxic Range: ? Greater than 1.2 mmol/L Lab Interpretation (test Abnormal code = 86756-0) [facility] W/AUTO DIFF WITH [id number] 06:12:05 Test Item Value Reference Range Interpretation Comments WBC (test code = 7.4 K/UL 3.5-11.0 1001) RBC (test code = 4.13 M/UL 3.80-5.40 1002) HEMOGLOBIN (test code 9.2 G/DL 11.5-15.5 L = 1003) HEMATOCRIT (test code 29.3 % 34.0-45.0 L = 1004) MCV (test code = 70.9 fL 80.0-99.0 L 1005) MCH (test code = 22.3 PG 25.0-33.0 L 1006) MCHC (test code = 31.4 G/DL 31.0-36.0 1007) RDW (test code = 20.3 % 11.5-15.0 H 1038) NEUTROPHILS (test 65.4 % code = 1008) LYMPHOCYTES (test 22.0 % code = 1010) MONOCYTES (test code 4.9 % = 1011) EOSINOPHILS (test 6.6 % code = 1012) BASOPHILS (test code 0.7 % = 1013) IMMATURE GRANULOCYTES 0.4 % (test code = 1036) NUCLEATED RBCS (test 0.0 /100 WBC'S See_Comment [Aut omated code = 1065) message] The sy stem which generated this result transmitted reference range : 0.0. The refere nce range was not u sed to interpret th is result as normal/abnormal . PLATELET COUNT (test 304 K/UL 130-400 code = 1015) ABSOLUTE NEUTROPHILS 4.86 K/UL 1.50-7.50 (test code = 1066) ABSOLUTE LYMPHOCYTES 1.63 K/UL 1.00-4.00 (test code = 1067) ABSOLUTE MONOCYTES 0.36 K/UL 0.20-1.00 (test code = 1068) ABSOLUTE EOSINOPHILS 0.49 K/UL 0.00-0.50 (test code = 1040) ABSOLUTE BASOPHILS 0.05 K/UL 0.00-0.20 (test code = 1069) ABS IMMATURE 0.03 K/UL 0.00-0.10 GRANULOCYTES (test code = 1020) ABS NUCLEATED RBCS 0.00 K/UL 0.00-0.11 (test code = 36311) RETICULOCYTE WITH [id number] 06:12:05 Test Item Value Reference Range Interpretation Comments RETICULOCYTE COUNT 2.50 % 0.80-2.40 H (test code = 1018) ABSOLUTE RETICULOCYTE 103.3 K/UL 32.0-105.[address] has important (test code = 20490) patholog y staff changes effecti ve 04/12/2022. New pathology staff will provide uninter rupted, excellent patie nt care and clinical consultation. S ee URL: [email or web address]. UNLES S OTHERWISE INDIC ATED, ALL TESTING PER FORMED AT CLINICAL [facility] [employer], [place] [place] [address] LABOR ATORY DIRECTOR: Mary DAILY ROSEMARY NUMBER [id number] CAP ACCREDITATION N O. [id number] YAZMIN NON-REFLEX TO [id number] 05:55:49 Test Item Value Reference Range Interpretation Comments ANTI-NUCLEAR NEGATIVE NEGATIVE METHODOLOGY IS INDIRECT ANTIBODIES (test IMMUNOFLUOR ESCENT ASSAY code = 3506) (IFA) WITH ADELE N EPITHELIAL (HEP -2) CELL LINE SUBSTRATE. FOLATE, [id number] 12:42:51 Test Item Value Reference Range Interpretation Comments HEMATOCRIT (test code 28.7 % 34.0-45.0 L = 1004) FOLATE, RBC (test 1185 NG/ML 499-1504 INT ERPRETIVE code = 2690) RANGES DEFICIENCY . . . . . . . . . . . . . . . NG/ML <=150 POS SIBLE DEFICIENCY. . . . . . . . . . . NG/ML 151-498 SUFFICI ENT . . . . . . . . . . . . . . . NG/ML 499-1 504 EXCESS . . . . . . . . . . . . . . . . . NG/ML >1504 TSH, THIRD [id number] 11:05:54 Test Item Value Reference Range Interpretation Comments TSH, THIRD GENERATION (test code 1.310 UIU/ML 0.400-4.100 = 2821) VITAMIN [id number] 11:05:54 Test Item Value Reference Range Interpretation Comments VITAMIN B-12 (test code = 2840) 436 PG/ML 200-950 VITAMIN D, 25 [id number] 11:03:45 Test Item Value Reference Range Interpretation Comments VITAMIN D, 25 13 NG/ML SEE BELOW L EFFECTIVE 02/20/2022, [place] (test code PLEASE NOTE NE W METHODOLOGY = 4958) IS ELECTROCH EMILUMINESCENCE BINDING ASSAY. NOTE: 25-HYDROXYVITAM IN D ASSAY INCLUDES 25-HYD ROXYVITAMIN D2 AND D3. I NTERPRETIVE RANGES PED IATRIC (<17 YEARS) . . . . . . . . . . . NG/ML 20-100ADU LT: INSUFFICIENT . . . . . . . . . . . . . . NG/ML <20 SUBO PTIMAL . . . . . . . . . . . . . . . NG/ML 20-29 OPTIMAL . . . . . . . . . . . . . . . . . NG/ML 30-100 [facility] has important p athology staff changes effecti ve 04/12/2022. New patholo gy staff will provide uninter rupted, excellent patie nt care and clinical consul tation. See URL: [email or web address]. UNLESS OTHERWIS E INDICATED, ALL TESTING PERFORM ED AT CLINICAL PATHOLOGY [facility] [place] [address] LABORATORY DIRE CTOR: Mary RUIZ ROSEMARY NUMBER [id number] [place]. [id number] URIC [id number] 05:28:57 Test Item Value Reference Range Interpretation Comments URIC ACID (test code = 2233) 6.7 MG/DL 2.7-6.1 H COMPREHENSIVE METABOLIC [id number] 05:28:57 Test Item Value Reference Range Interpretation Comments GLUCOSE (test code = 103 MG/DL 70-99 H 2216) BUN (test code = 9 MG/DL 6-20 2207) CREATININE (test 0.72 MG/DL 0.60-1.30 code = 2214) eGFR (2020 CKD-EPI) 106 >60 (test code = 96475) ML/MIN/1.73 CALC BUN/CREAT (test 13 RATIO 6-28 code = 2235) SODIUM (test code = 139 MEQ/L 418-723 0686) POTASSIUM (test code 4.5 MEQ/L 3.5-5.4 = 8) CHLORIDE (test code 104 MEQ/L 95-107 = 221) CARBON DIOXIDE (test 24 MEQ/L 19-31 code = 2206) CALCIUM (test code = 9.5 MG/DL 8.5-10.5 2208) PROTEIN, TOTAL (test 6.5 G/DL 6.1-8.3 code = 2229) ALBUMIN (test code = 4.4 G/DL 3.5-5.2 2200) CALC GLOBULIN (test 2.1 G/DL 1.9-3.7 code = 2240) CALC A/G RATIO (test 2.1 RATIO 1.0-2.6 code = 2234) BILIRUBIN, TOTAL <0.2 MG/DL See_Comment [Automated message] (test code = 2207) The syste m which generated this result transmit mehreen reference range : <=1.2. The refe rence range was not u sed to interpret th is result as normal/abnormal . ALKALINE PHOSPHATASE 129 U/L 40-115 H (test code = 2204) AST (test code = 21 U/L 9-40 2217) ALT (test code = 26 U/L 5-40 2218) LIPID [id number] 05:28:57 Test Item Value Reference Range Interpretation Comments CHOLESTEROL (test 207 MG/DL <200 H code = 2210) TRIGLYCERIDES (test 130 MG/DL <150 code = 2232) HDL CHOLESTEROL (test 45 MG/DL >39 code = 2220) CALC LDL CHOL (test 137 MG/DL <100 H NOTE: C ALCULATED LDL code = 2237) IS BASED ON DOMINIQUE-PEREZ METHOD WHICHINCLUDES ADJUSTABLE TRIGLYCERIDE:VL DL CHOLESTEROL RAT IO.THIS FACTOR VARIES B Y MEASURED TRIGLY CERIDE AND NON-HDLCHOL ESTEROL CONCENTRATIONS WITH INCREASED CALCU LATED LDL SEENIN HIGH ER TRIGLYCERIDE OR LOWER NON-HDL SPECIME NS. FOR MOREINFORMATION , SEE CLIENT ANNOUNCE MENT AT [email or web address] RATIO LDL/HDL 3.04 RATIO <3.22 (test code = 2238) HEMOGLOBIN [id number] 02:54:46 Test Item Value Reference Range Interpretation Comments HEMOGLOBIN A1c (test code = 89050) 5.6 % 4.2-5.6 CBC W/AUTO DIFF WITH [id number] 01:58:18 Test Item Value Reference Range Interpretation Comments WBC (test code = 6.7 K/UL 3.5-11.0 1001) RBC (test code = 4.06 M/UL 3.80-5.40 1002) HEMOGLOBIN (test code 8.8 G/DL 11.5-15.5 L = 1003) HEMATOCRIT (test code 28.7 % 34.0-45.0 L = 1004) MCV (test code = 70.7 fL 80.0-99.0 L 1005) MCH (test code = 21.7 PG 25.0-33.0 L 1006) MCHC (test code = 30.7 G/DL 31.0-36.0 L 1007) RDW (test code = 17.1 % 11.5-15.0 H 1038) NEUTROPHILS (test 67.9 % code = 1008) LYMPHOCYTES (test 18.5 % code = 1010) MONOCYTES (test code 6.4 % = 1011) EOSINOPHILS (test 6.0 % code = 1012) BASOPHILS (test code 0.6 % = 1013) IMMATURE GRANULOCYTES 0.6 % (test code = 1036) NUCLEATED RBCS (test 0.0 /100 WBC'S See_Comment [Aut omated code = 1065) message] The sy stem which generated this result transmitted reference range : 0.0. The refere nce range was not u sed to interpret th is result as normal/abnormal . PLATELET COUNT (test 256 K/UL 130-400 code = 1015) ABSOLUTE NEUTROPHILS 4.57 K/UL 1.50-7.50 (test code = 1066) ABSOLUTE LYMPHOCYTES 1.24 K/UL 1.00-4.00 (test code = 1067) ABSOLUTE MONOCYTES 0.43 K/UL 0.20-1.00 (test code = 1068) ABSOLUTE EOSINOPHILS 0.40 K/UL 0.00-0.50 (test code = 1040) ABSOLUTE BASOPHILS 0.04 K/UL 0.00-0.20 (test code = 1069) ABS IMMATURE 0.04 K/UL 0.00-0.10 GRANULOCYTES (test code = 1020) ABS NUCLEATED RBCS 0.00 K/UL 0.00-0.11 (test code = 26539) [id number] 20:05:22 Test Item Value Reference Range Interpretation Comments [place] (test code = 1.1 mmol/L 0.6-1.2 2907188936) ZAINAB (test code = ZAINAB) Toxic Range: ? Greater than 1.2 mmol/L Lab Interpretation (test Normal code = 38555-6) [facility] Test Item Value Reference Range Interpretation Comments [place] (test code = 1.1 mmol/L 0.6-1.2 4928703332) ZAINAB (test code = ZAINAB) Toxic Range: ? Greater than 1.2 mmol/L Lab Interpretation (test Normal code = 27179-1) [facility]2023-01-04 20:05:22 Test Item Value Reference Range Interpretation Comments [place] (test code = 1.1 mmol/L 0.6-1.2 2053177552) ZAINAB (test code = ZAINAB) Toxic Range: ? Greater than 1.2 mmol/L Lab Interpretation (test Normal code = 50371-0) [facility]2023-01-04 20:05:22 Test Item Value Reference Range Interpretation Comments [place] (test code = 1.1 mmol/L 0.6-1.2 5352423493) ZAINAB (test code = ZAINAB) Toxic Range: ? Greater than 1.2 mmol/L Lab Interpretation (test Normal code = 94013-3) [facility]2023-01-04 20:05:22 Test Item Value Reference Range Interpretation Comments [place] (test code = 1.1 mmol/L 0.6-1.2 3225335587) ZAINAB (test code = ZAINAB) Toxic Range: ? Greater than 1.2 mmol/L Lab Interpretation (test Normal code = 01268-2) [facility]2023-01-04 20:05:22 Test Item Value Reference Range Interpretation Comments [place] (test code = 1.1 mmol/L 0.6-1.2 3512865574) ZAINAB (test code = ZAINAB) Toxic Range: ? Greater than 1.2 mmol/L Lab Interpretation (test Normal code = 35325-9) [facility]2023-01-04 20:05:22 Test Item Value Reference Range Interpretation Comments [place] (test code = 1.1 mmol/L 0.6-1.2 3735836640) ZAINAB (test code = ZAINAB) Toxic Range: ? Greater than 1.2 mmol/L Lab Interpretation (test Normal code = 17596-0) [place] [id number] 20:05:22 Test Item Value Reference Range Interpretation Comments [place] (test code = 1.1 mmol/L 0.6-1.2 1716178172) ZAINAB (test code = ZAINAB) Toxic Range: ? Greater than 1.2 mmol/L Lab Interpretation (test Normal code = 25989-0) [facility]2023-01-04 20:05:22 Test Item Value Reference Range Interpretation Comments [place] (test code = 1.1 mmol/L 0.6-1.2 4114271502) ZAINAB (test code = ZAINAB) Toxic Range: ? Greater than 1.2 mmol/L Lab Interpretation (test Normal code = 47631-7) [facility]2023-01-04 20:05:22 Test Item Value Reference Range Interpretation Comments [place] (test code = 1.1 mmol/L 0.6-1.2 5177124405) ZAINAB (test code = ZAINAB) Toxic Range: ? Greater than 1.2 mmol/L Lab Interpretation (test Normal code = 09335-2) [facility]2018-07-20 07:27:00 Test Item [...] VERY HIGH.........>/ = 190 mg/dL Comments to Project Designer: ADD TO AM LABSLIPID PROFILE (CORONARY RISK)2018-07-20 [...] MG/DL 0-99 code = LDL) Comments to Project Designer: ADD TO AM LABSPROTHROMBIN [id number] 06:24:00 Test Item Value Reference Range Interpretation [...] myocar dial infarction. 2.0 - 3.0 3. Pit Furnace Operator al prosthesis hear t valves, recurre nt systemic emboli sm. 3.0 - 4.5 Comments to Project Designer: NURSE WILL BRING SPECIMEN TO LABPTT ACTIVATED 2018-07-20 06:24:00 Test Item Value Reference Range Interpretation Comments PTT ACTIVATED (test code = APTT) 29.3 SECONDS 22.0-33.0 N Comments to Project Designer: NURSE WILL BRING SPECIMEN TO LABBASIC METABOLIC [...] 9.6 MG/DL 8.4-10.2 N CA) Comments to Project Designer: NURSE WILL BRING SPECIMEN TO LAB Comments to Project Designer: NURSE WILL BRING SPECIMEN TO [id number] 06:13:00 Test Item Value Reference Range Interpretation Comments MAGNESIUM (test code = MAG) 2.2 MG/DL 1.6-2.3 N Comments to Project Designer: NURSE WILL BRING SPECIMEN TO LAB Comments to Project Designer: NURSE WILL BRING SPECIMEN TO LABCBC W/AUTO [id number] 06:02:00 Test Item Value Reference Range Interpretation [...] N NRBC#) Notes Date/Time Note Provider Source 2022-10-19 Formatting of this note is different fro m the original. Samantha Rosales [facility] 08:30:00-00:00 Images from the original note were not included. Venipuncture collection perf ormed by clean technique on the left anticubitus. Total of 1 attempts were made. Slight pressure and a bandage/dressing were applied to the site(s). The patient experienced n o complications. The followi ng specimens were processed according to instructions and sent to [facility] laboratories LT BLUE Lt Green SST 2 RED LAV PPT DK GREEN (L) DK GREEN (S)/// Fibrosure set BLUE,SST & LAV SUE DK BLUE (K2) DK BLUE (S) ACD RST BLOOD CULTURE NIPT or ALLOSURE VERIFYNOW URINE URINE CULTURE APTIMA URINE STOOL Monogram Z plasma preservative tube (call lab for tube)A RUP Vasoactive Intestinal Peptide (call lab for tub e)ARUP Electronically signed by Samantha Rosales at 08/2022 8:36 AM CDT 2022-10-05 Formatting of this note is different from the or iginal. [facility] 10:15:00-00:00 Images from the original note were not included. Venipuncture collection perf ormed by clean technique on the left anticubitus. Total of 1 attempts were made. Slight pressure and a bandage/dressing were applied to the site(s). The patient experienced n o complications. The followi ng specimens were processed according to instructions and sent to [facility] laboratories per lab order on 10/05/2022: LT BLUE SST 1 RED LAV 2 PPT DK GREEN (LiHep) DK GREEN (SodH) SUE DK BLUE (K2) DK BLUE (S) ACD Blood Culture NIPT/NTD 2018-07-20 [id number] [facility] 06:55:00-00:[address] [place] [address] PATIENT NAME: SHIVANI SCHULER ADMIT DATE: 07/20/18 ACCOUNT NO: [id number] ROOM NO: AGE: 43 REPORT TYPE: CARDIAC CATHETERIZATION REPORT SEX: F ADMITTING PHYSICIAN: ATTENDING PHYSICIAN:Thea Harper MD PROCEDURE DATE: 07/20/2018 SPECIAL CERTIFICATE DICTATOR: Thea Harper MD TITLE OF THE PROCEDURE: Left [...] emoral artery area for local anesthesia. A 6-Lao sheath was placed in the right common [...] on today on medical therapy PATIENT NAME: SHIVANI SCHULER ACCOUNT #: Z [id number] and risk factor modification. Dictated By: Thea Harper MD WT: CATH:ADRIANA/KIAN/RIGOBERTO Conf#: [id number]/DID#: [id number] Authenticated by Thea Harper MD On 09/2018 08:15:22 AM at 0815 PATIENT NAME: SHIVANI SCHULER ACCOUNT #: Z [id number] 2018-07-20 [id number] [facility] 06:06:00-00:[address] [place] [id number] PATIENT NAME: SHIVANI SCHULER ADMIT DATE: 07/20/18 ACCOUNT NO: [id number] ROOM NO: AGE: 43 REPORT TYPE: ELECTROCARDIOGRAM SEX: F ADMITTING PHYSICIAN: ATTENDING PHYSICIAN:Thea Harper MD Order: [id number] Test Reason : CAD Test Date/Time Stamp: [...] ECG No previous ECGs available Confirmed by THEA HARPER ([id number]) on 07/20/2018 9 :21:42 AM Referred By: Thea Harper Confirmed by:THEA CRUZ at 0921 PATIENT NAME: SHIVANI SCHULER ACCOUNT #: Z [id number] 2018-07-19 [id number] [facility] 18:55:00-00:00 [id number] [id number] PATIENT NAME: SHIVANI SCHULER ADMIT DATE: 07/20/18 ACCOUNT NO: [id number] ROOM NO: AGE: 43 REPORT TYPE: HISTORY AND PHYSICAL SEX: F ADMITTING PHYSICIAN: ATTENDING PHYSICIAN:Thea Harper MD ADMISSION DATE: 07/20/2018 SPECIAL CERTIFICATE DICTATOR: Thea Harper MD REASON FOR ADMISSION: Chest pain, dyspnea sounds like new onset angina, abnormal stress test for car diac catheterization and possible revascularization. HISTORY OF PRESENT ILLNESS: Shivani is a 43-year -old lady with multiple [...] 16 unlabored, temperature afebr ile. PATIENT NAME: SHIVANI SCHULER ACCOUNT #: Z [id number] HEENT: Head, atraumatic and normocephalic. Eyes and [...] det ail with the patient. Dictated By: Thea Harper MD WT: HP:TRAVIS/KIAN/RIGOBERTO Conf#: [id number]/DID#: [id number] Authenticated by Thea Harper MD On 07/13 07:20:46 AM at 0721 PATIENT NAME: SHIVANI SCHULER ACCOUNT #: [id number]"
--- NOTE | 2022-10-30 23:44 | ER ---
Nurse's Notes [facility] Name: Shivani Lagunas Age: 47 yrs Sex: Female : 1975 Arrival Date: 10/30/2022 Time: 20:40 Bed 11 Private MD: Diagnosis: Viral infection, unspecified Presentation: 10/30 21:17 Chief complaint: Patient states: c/o mouth pain and fever x 3 days. States her gums, me1 inside cheeks and tongue feel raw. Coronavirus screen: Vaccine status: Patient reports receiving the 2nd dose of the covid vaccine. fever. Ebola Screen: No symptoms or risks identified at this time. Initial Sepsis Screen: Does the patient meet any 2 criteria? No. Patient's initial sepsis screen is negative. Does the patient have a suspected source of infection? No. Patient's initial sepsis screen is negative. Risk Assessment: Do you want to hurt yourself or someone else? Patient reports no desire to harm self or others. Onset of symptoms was October 27, 2022. 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 - Social history:: Smoking status: Reported history of juuling and/or vaping. Screenin/19 00:12 [facility] ED Fall Risk Assessment (Adult) Score/Fall Risk Level 0 - 2 = Low Risk. Abuse as6 screen: Denies threats or abuse. Denies injuries from another. Nutritional screening: No deficits noted. Tuberculosis screening: No symptoms or risk factors identified. Assessment: 00:14 General: Appears in no apparent distress. Behavior is calm, cooperative. Pain: as6 Complains of pain in mouth. EENT: Reports pain in mouth. Vital Signs: 10/30 21:17 BP 147 / 69; Pulse 81; Resp 16; Temp 98.4(TE); Pulse Ox 98% on R/A; Weight 97.52 kg; me1 Height 5 ft. 6 in. ; Pain 9/10; 21:17 Body Mass Index 34.70 (97.52 kg, 167.64 cm) me1 21:17 Pain Scale: Adult me1 ED Course: 20:44 Patient arrived in ED. cc5 21:11 [facility] 21:11 Silver Johnson MD is Attending Physician. kb 21:20 Triage completed. me1 21:20 Arm band placed on Patient placed in waiting room. me1 22:19 Strep Sent. bc6 22:19 SARS-COV-2 RT PCR Sent. bc6 22:19 Flu Sent. bc6 10/31 00:12 Bed in low position. Call light in reach. Provided Education on: follow up. as6 00:13 No provider procedures requiring assistance completed. Patient did not have IV access as6 during this emergency room visit. Administered Medications: 00:12 Drug: diphenhydrAMINE PO 12.5 mg PO once Route: PO; as6 00:12 Follow up: Response: No adverse reaction as6 00:12 Drug: Alum-Mag Hydroxide-Simeth PO Suspension (200 mg-200 mg-20 mg/5 mL) 5 ml PO once; as6 mix with benadryl - swish and spit Route: PO; 00:12 Follow up: Response: No adverse reaction as6 Medication: 00:12 VIS not applicable for this client. as6 Outcome: 10/30 23:44 Discharge ordered by . kb 10/31 00:13 Discharged to home ambulatory, as6 Condition: stable Discharge instructions given to patient, Instructed on discharge instructions, follow up and referral plans. Demonstrated understanding of instructions, follow-up care, 00:15 Patient left the ED. as6 Signatures: Shantelle Peraza FNP-C FNP-Ckb Slawson, Ashby RN RN as6 Mireya Hull cc5 Luly Painter 6 Tamar Judd RN RN me1
--- NOTE | 2022-10-30 23:44 | EDPHYS ---
Physician Documentation [facility] Name: Shivani Lagunas Age: 47 yrs Sex: Female : 1975 Arrival Date: 10/30/2022 Time: 20:40 Bed 11 Private MD: ED Physician Silver Johnson HPI: 10/30 23:43 This 47 yrs old Female presents to ER via Ambulatory with complaints of Mouth kb Problem. 23:43 The patient presents with pain. The problem is located in the mouth. The patient has kb not experienced similar symptoms in the past. The patient has not recently seen a physician. 23:43 Onset: The symptoms/episode began/occurred 3 day(s) ago. Duration: The symptoms are kb continuous. Modifying factors: The symptoms are alleviated by nothing, the symptoms are aggravated by nothing. Associated signs and symptoms: Pertinent positives: fever, pain. Severity of symptoms: At their worst the symptoms were mild, in the emergency department the symptoms are unchanged. 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 - Social history:: Smoking status: Reported history of juuling and/or vaping. ROS: 23:41 Respiratory: Negative for shortness of breath, cough, wheezing, and pleuritic chest kb pain, 23:41 Constitutional: Positive for chills, fever, 23:41 ENT: Positive for mouth pain and ulcerations, 23:41 All other systems are negative, Exam: 23:42 Constitutional: This is a well developed, well nourished patient who is awake, alert, kb and in no acute distress. Head/Face: Normocephalic, atraumatic. ENT: Moist Mucous membranes Cardiovascular: Regular rate Respiratory: Respirations even and unlabored. No increased work of breathing. Talking in full sentences Skin: Warm, dry with normal turgor. Normal color. MS/ Extremity: Pulses equal, no cyanosis. Neurovascular intact. Full, normal range of motion. Neuro: Awake and alert, GCS 15, oriented to person, place, time, and situation. Moves all extremities. Normal gait. 23:42 ENT: Mouth: Oral mucosa: noted to have ulceration(s), Vital Signs: 21:17 BP 147 / 69; Pulse 81; Resp 16; Temp 98.4(TE); Pulse Ox 98% on R/A; Weight 97.52 kg; me1 Height 5 ft. 6 in. ; Pain 9/10; 21:17 Body Mass Index 34.70 (97.52 kg, 167.64 cm) me1 21:17 Pain Scale: Adult me1 MDM: 21:11 Patient medically screened. kb 23:42 Differential diagnosis: gingivitis, dental abscess, aphthous ulcers, viral illness. kb Data reviewed: vital signs, nurses notes. Counseling: I had a detailed discussion with the patient and/or guardian regarding the historical points, exam findings, and any diagnostic results supporting the discharge/admit diagnosis, lab results, the need for outpatient follow up, a family practitioner, to return to the emergency department if symptoms worsen or persist or if there are any questions or concerns that arise at home. 10/30 21:17 Order name: Flu; Complete Time: 23:19 kb 10/30 21:17 Order name: SARS-COV-2 RT PCR; Complete Time: 23:19 kb 10/30 21:17 Order name: Strep; Complete Time: 23:19 kb 10/30 23:13 Order name: Throat Culture EDMS Administered Medications: 10/31 00:12 Drug: diphenhydrAMINE PO 12.5 mg PO once Route: PO; as6 00:12 Follow up: Response: No adverse reaction as6 00:12 Drug: Alum-Mag Hydroxide-Simeth PO Suspension (200 mg-200 mg-20 mg/5 mL) 5 ml PO once; as6 mix with benadryl - swish and spit Route: PO; 00:12 Follow up: Response: No adverse reaction as6 Disposition: 08:42 Co-signature as Attending Physician, Silver Johnson MD I agree with the assessment sp4 and plan of care. 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 Disposition Summary: 10/30/22 23:44 Discharge Ordered Notes: Location: Home kb Condition: Stable kb Diagnosis - Viral infection, unspecified kb Followup: kb - With: Private Physician - When: 2 - 3 days - Reason: Recheck today's complaints, Continuance of care, Re-evaluation by your physician Followup: kb - With: Emergency Department - When: As needed - Reason: Worsening of condition Discharge Instructions: - Discharge Summary Sheet kb - Viral Illness, Adult kb Forms: - Medication Reconciliation Form kb - Thank You Letter kb - Antibiotic Education kb - Prescription Opioid Use kb - Patient Portal Instructions kb - Leadership Thank You Letter jossie Signatures: Dispatcher [employer] EDShantelle Bonilla FNP-C FNP-Shalom Naranjo, RN RN as6 Silver Johnson MD MD sp4 Tamar Judd RN RN me1
[2022-10-31] MEDS ORDERED: DIPHENHYDRAMINE 12.5MG/5ML LIQ ONE (00:05)
[2022-10-31] MEDS ORDERED: MAGNES/ALUMIN/SIMET 30ML UCUP ONE (00:05)
[2022-10-31 01:56] VITALS: BP 147/69; TEMP 98.4; O2SAT 98
== END 2022-10-31 00:15 | disposition home or self-care (01) ==
LOC: ER 20:40
DX: B34.9 Viral infection, unspecified (principal); Z20.822 Contact with and (suspected) exposure to COVID-19; Z88.2 Allergy status to sulfonamides
CPT/HCPCS: 87070; 87081; 87635; 87804 ×2; 99283; Q0163

== ENCOUNTER 2023-01-03 08:46 | Emergency (ER) | payer OTHER ==
--- OUTSIDE RECORDS SUMMARY | 2023-01-03 09:07 | XMS REPORT | Continuity of Care Document ---
:1975 Author Organization [facility] t Address [address] [place] [address] [place] [id number] Care Team Providers Name Role Phone JEWEL JAE Primary Care Physician Unavailable JENNY ARRIAGA Attending Clinician Unavailable JENNY ARRIAGA Attending Clinician Unavailable Consuelo BAUER, Elidia Gamble Attending Clinician [phone] Doctor Unassigned, [place] Attending Clinician Unavailable [email or web address] Attending Clinician Unavailable ONEIDA MONTANA Attending Clinician Unavailable Dominic Keita MD Attending Clinician DOMINIC KEITA Attending Clinician Unavailable Hunter Cruz MD Attending Clinician Ting Grissom MD Attending Clinician RADIOLOGY Attending Clinician Unavailable DORA NEWMAN Attending Clinician Unavailable Dora Newman NP Attending Clinician Jewel Lindsey MD Attending Clinician [facility] Attending Clinician Unavailable JEWEL LINDSEY Attending Clinician Unavailable Kath Parra MD Attending [...] Clinician Unavailable Igor Saavedra MD Attending Clinician Unavailable GIGI NY Attending Clinician Unavailable Gigi Ny DO Attending Clinician Zane Martinez MD [...] Unavailable KATH DELGADO Attending Clinician Unavailable ANGELA RUASCH Attending Clinician Unavailable [email or web address] Admitting Clinician Unavailable DOMINIC KEITA Admitting Clinician Unavailable Dominic Keita MD Admitting Clinician Payers Payer Name Policy Type Policy Number Effective Date Expiration Date S osman [facility] [id number] 2022 HEALTHCARE 00:00:00 MEDICAID SSI PENDING 2021 PENDING 00:00:00 Problems [...] Gastroesop Disease Active U nivers hageal hageal 9-07 ity of reflux reflux 00:00: [place] disease, disease, 00 Medica l unspecifie unspecifie Br anch d whether d whether esophagiti esophagiti s present s present Arrhythmia Arrhythmia Disease Active U nivers 9-06 ity of 00:00: [place] 00 Medical Branch Anemia Anemia Disease Active Univers 1-06 ity of 00:00: [place] [facility] Bipolar 1 Bipolar 1 Disease Active 2019-02 Uni vers disorder, disorder, 1-06 [place] depressed [place] [facility] Gout Gout Disease Active Univers 7-06 ity of 00:00: [place] [facility] Severe Severe Disease Active 1998-02 Univers headache headache 2-06 ity of 00:00: [place] [facility] Insomnia Insomnia Disease Active 1989-02 Unive rs disorder disorder 0-06 ity of 00:00: [place] [facility] Anxiety Anxiety Disease Active Univers 9-06 ity of 00:00: [place] [facility] No known No known Disease Unive rs active active ity of problems problems [facility] Allergies, Adverse Reactions, Alerts Allergy Allergy Status [...] Quantity Comments Source Gender identity Universit y of [facility] Sexual orientation Univer sity [facility] History of Social 2022-12-20 2022-12-20 Univers ity of function 00:00:00 00:00:00 [facility] Exposure to 2022-02-05 2022-02-15 Not sure University SARS-CoV-2 (event) 00:00:00 08:57:00 [facility] Tobacco use and 2021-08-24 2021-08-24 Smokeless Universit y of exposure 00:00:00 00:00:00 tobacco non-user [place] [facility] [birth year] [facility] Smoking Status Start Date Stop Date Source Never smoked tobacco [facility] Medications Ordered Filled Start Stop Current Ordering Indication Dosage Frequency Signature Comments Components Source Medication Medication Date Date Medication? Clinician (SIG) Name Name busPIRone 2022-02 Yes [id number] 15mg Take 1 Un cristhian 15 mg 1-08 tablet by ity of tablet 00:00: mouth in [place] 00 the Medical morning Branch and 1 tablet in the evening. lithium 2022-02 Yes 900mg Take 2 Uni vers carbonate 1-08 tablets by ity of CR 450 mg 00:00: [place] 00 bedtime. Medica l Branch traZODone 2022-02 Yes [id number] 50mg Take 1 U nivers 50 mg 1-08 tablet by ity of tablet 00:00: mouth at [place] [address] bedtime. Medical May cut Branch tablet in half. DULoxetine 2022-02 Yes 60mg Take 1 U nivers 60 mg 1-08 capsule by ity of capsule 00:00: mouth in [place] 00 the Medical morning Branch and 1 capsule in the evening. lamoTRIgine 2022-02 Yes 100mg Take 1 Univers 100 mg 1-08 tablet by ity of tablet 00:00: mouth in [place] 00 the Medical morning Branch and 1 tablet in the evening. clonazePAM 2022-02 Yes [id number] Take 1 U nivers 1 mg tablet 1-08 tablet by ity of 00:00: mouth once [place] 00 daily as Medical needed for Branch extreme anxiety. Attempt to minimize use. busPIRone 2022-02 Yes [id number] 15mg Take 1 Un cristhian 15 mg 1-08 tablet by ity of tablet 00:00: mouth in [place] 00 the Medical morning Branch and 1 tablet in the evening. lithium 2022-02 Yes 900mg Take 2 Uni vers carbonate 1-08 tablets by ity of CR 450 mg 00:00: [place] 00 bedtime. Medica l Branch traZODone 2022-02 Yes [id number] 50mg Take 1 U nivers 50 mg 1-08 tablet by ity of tablet 00:00: mouth at [place] 00 bedtime. Medical May cut Branch tablet in half. DULoxetine 2022-02 Yes [id number] 60mg Take 1 U nivers 60 mg 1-08 capsule by ity of capsule 00:00: mouth in [place] 00 the Medical morning Branch and 1 capsule in the evening. lamoTRIgine 2022-02 Yes [id number] 100mg Take 1 Univers 100 mg 1-08 tablet by ity of tablet 00:00: mouth in [place] 00 the Medical morning Branch and 1 tablet in the evening. clonazePAM 2022-02 Yes Take 1 U nivers 1 mg tablet 1-08 tablet by ity of 00:00: mouth once [place] 00 daily as Medical needed for Branch extreme anxiety. Attempt to minimize use. busPIRone 2022-02 Yes [id number] 15mg Take 1 Un cristhian 15 mg 1-08 tablet by ity of tablet 00:00: mouth in [place] 00 the Medical morning Branch and 1 tablet in the evening. lithium 2022-02 Yes 900mg Take 2 Uni vers carbonate 1-08 tablets by ity of CR 450 mg 00:00: mouth at [facility] s SR tablet 00 bedtime. Medica l Branch traZODone 2022-02 Yes [id number] 50mg Take 1 U nivers 50 mg 1-08 tablet by ity of tablet 00:00: mouth at [place] 00 bedtime. Medical May cut Branch tablet in half. DULoxetine 2022-02 Yes [id number] 60mg Take 1 U nivers 60 mg 1-08 capsule by ity of capsule 00:00: mouth in [place] 00 the Medical morning Branch and 1 capsule in the evening. lamoTRIgine 2022-02 Yes [id number] 100mg Take 1 Univers 100 mg 1-08 tablet by ity of tablet 00:00: mouth in [place] 00 the Medical morning Branch and 1 tablet in the evening. clonazePAM 2022-02 Yes Take 1 U nivers 1 mg tablet 1-08 tablet by ity of 00:00: mouth once [place] 00 daily as Medical needed for Branch extreme anxiety. Attempt to minimize use. busPIRone 2022-02 Yes [id number] 15mg Take 1 Un cristhian 15 mg 1-01 tablet by ity of tablet 00:00: mouth in [place] 00 the Medical morning Branch and 1 tablet in the evening. busPIRone 2022-02 Yes [id number] 15mg Take 1 Un cristhian 15 mg 1-01 tablet by ity of tablet 00:00: mouth in [place] 00 the Medical morning Branch and 1 tablet in the evening. busPIRone 2022-02 Yes [id number] 15mg Take 1 Un cristhian 15 mg 1-01 tablet by ity of tablet 00:00: mouth in [place] 00 the Medical morning Branch and 1 tablet in the evening. busPIRone 2022-02- No [id number] 15mg Take 1 U nivers 15 mg -08 tablet by ity of tablet 00:00: 00:00 mouth in [place] 00 :00 the Medical morning Branch and 1 tablet in the evening. busPIRone 2022-02- No [id number] 15mg Take 1 U nivers 15 mg -12-20 tablet by ity of tablet 00:00: 00:00 mouth in [place] 00 :00 the Medical morning Branch and 1 tablet in the evening. busPIRone 2022-02- No [id number] 15mg Take 1 U nivers 15 mg -12-20 tablet by ity of tablet 00:00: 00:00 mouth in [place] 00 :00 the Medical morning Branch and 1 tablet in the evening. lithium 2022-02 Yes [id number] 900mg Take 2 Uni vers carbonate 0-17 tablets by ity of CR 450 mg 00:00: [place] 00 bedtime. Medica l Branch lithium 2022-02 Yes [id number] 900mg Take 2 Uni vers carbonate 0-17 tablets by ity of CR 450 mg 00:00: [place] tablet 00 bedtime. Medica l Branch traZODone 2022-02 Yes [id number] 50mg Take 1 U nivers 50 mg 0-17 tablet by ity of tablet 00:00: mouth at [place] 00 bedtime. Medical May cut Branch tablet in half. lithium 2022-02 Yes [id number] 900mg Take 2 Uni vers carbonate 0-17 tablets by ity of CR 450 mg 00:00: [place] tablet 00 bedtime. Medica l Branch traZODone 2022-02 Yes [id number] 50mg Take 1 U nivers 50 mg 0-17 tablet by ity of tablet 00:00: mouth at [place] 00 bedtime. Medical May cut Branch tablet in half. lithium 2022-02 Yes [id number] 900mg Take 2 Uni vers carbonate 0-17 tablets by ity of CR 450 mg 00:00: [place] tablet 00 bedtime. Medica l Branch traZODone 2022-02 Yes [id number] 50mg Take 1 U nivers 50 mg 0-17 tablet by ity of tablet 00:00: mouth at [place] 00 bedtime. Medical May cut Branch tablet in half. lithium 2022-02 Yes [id number] 900mg Take 2 Uni vers carbonate 0-17 tablets by ity of CR 450 mg 00:00: [place] 00 bedtime. Medica l Branch traZODone 2022-02 Yes [id number] 50mg Take 1 U nivers 50 mg 0-17 tablet by ity of tablet 00:00: mouth at [place] 00 bedtime. Medical May cut Branch tablet in half. lithium 2022-02 Yes 900mg Take 2 Uni vers carbonate 0-17 tablets by ity of CR 450 mg 00:00: [place] 00 bedtime. Medica l Branch traZODone 2022-02 Yes [id number] 50mg Take 1 U nivers 50 mg 0-17 tablet by ity of tablet 00:00: mouth at [place] 00 bedtime. Medical May cut Branch tablet in half. lithium 2022-02 Yes [id number] 900mg Take 2 Uni vers carbonate 0-17 tablets by ity of CR 450 mg 00:00: [place] 00 bedtime. Medica l Branch traZODone 2022-02 Yes [id number] 50mg Take 1 U nivers 50 mg 0-17 tablet by ity of tablet 00:00: mouth at [place] 00 bedtime. Medical May cut Branch tablet in half. lithium 2022-02- No [id number] 900mg Take 2 Un cristhian carbonate 0-17 11-08 tablets by ity of CR 450 mg 00:00: 00:00 mouth at [place] tablet 00 :00 bedtime. Medica l Branch traZODone 2022-02- No [id number] 50mg Take 1 Univers 50 mg 0-17 11-08 tablet by ity of tablet 00:00: 00:00 mouth at [place] 00 :00 bedtime. Medical May cut Branch tablet in half. lithium 2022-02 No [id number] 900mg Take 2 Un cristhian carbonate 0-17 11-08 tablets by ity of CR 450 mg 00:00: 00:00 mouth at [place] tablet 00 :00 bedtime. Medica l Branch traZODone 2022-02- No [id number] 50mg Take 1 Univers 50 mg 0-17 11-08 tablet by ity of tablet 00:00: 00:00 mouth at [place] 00 :00 bedtime. Medical May cut Branch tablet in half. lithium 2022-02- No [id number] 900mg Take 2 Un cristhian carbonate 0-17 11-08 tablets by ity of CR 450 mg 00:00: 00:00 mouth at [place] tablet 00 :00 bedtime. Medica l Branch traZODone 2022-02- No [id number] 50mg Take 1 Univers 50 mg 0-17 11-08 tablet by ity of tablet 00:00: 00:00 mouth at [place] 00 :00 bedtime. Medical May cut Branch tablet in half. DULoxetine 2022-02 Yes [id number] 60mg Take 1 U nivers 60 mg 0-11 capsule by ity of capsule 00:00: mouth in [place] 00 the Medical morning Branch and 1 capsule in the evening. DULoxetine 2022-02 Yes [id number] 60mg Take 1 U nivers 60 mg 0-11 capsule by ity of capsule 00:00: mouth in [place] 00 the Medical morning Branch and 1 capsule in the evening. DULoxetine 2022-02 Yes [id number] 60mg Take 1 U nivers 60 mg 0-11 capsule by ity of capsule 00:00: mouth in [place] 00 the Medical morning Branch and 1 capsule in the evening. DULoxetine 2022-02 Yes [id number] 60mg Take 1 U nivers 60 mg 0-11 capsule by ity of capsule 00:00: mouth in [place] 00 the Medical morning Branch and 1 capsule in the evening. DULoxetine 2022-02 Yes [id number] 60mg Take 1 U nivers 60 mg 0-11 capsule by ity of capsule 00:00: mouth in [place] 00 the Medical morning Branch and 1 capsule in the evening. DULoxetine 2022-02 Yes [id number] 60mg Take 1 U nivers 60 mg 0-11 capsule by ity of capsule 00:00: mouth in [place] 00 the Medical morning Branch and 1 capsule in the evening. DULoxetine 2022-02 Yes [id number] 60mg Take 1 U nivers 60 mg 0-11 capsule by ity of capsule 00:00: mouth in [place] [address] the Medical morning Branch and 1 capsule in the evening. DULoxetine 2022-02 Yes [id number] 60mg Take 1 U nivers 60 mg 0-11 capsule by ity of capsule 00:00: mouth in [place] 00 the Medical morning Branch and 1 capsule in the evening. DULoxetine 2022-02 Yes [id number] 60mg Take 1 U nivers 60 mg 0-11 capsule by ity of capsule 00:00: mouth in [place] 00 the Medical morning Branch and 1 capsule in the evening. DULoxetine 2022-02 Yes [id number] 60mg Take 1 U nivers 60 mg 0-11 capsule by ity of capsule 00:00: mouth in [place] [address] the Medical morning Branch and 1 capsule in the evening. DULoxetine 2022-02 Yes [id number] 60mg Take 1 U nivers 60 mg 0-11 capsule by ity of capsule 00:00: mouth in [place] [address] the Medical morning Branch and 1 capsule in the evening. DULoxetine 2022-02 Yes [id number] 60mg Take 1 U nivers 60 mg 0-11 capsule by ity of capsule 00:00: mouth in [place] [address] the Medical morning Branch and 1 capsule in the evening. DULoxetine 2022-02 Yes [id number] 60mg Take 1 U nivers 60 mg 0-11 capsule by ity of capsule 00:00: mouth in [place] [address] the Medical morning Branch and 1 capsule in the evening. DULoxetine 2022-02 Yes [id number] 60mg Take 1 U nivers 60 mg 0-11 capsule by ity of capsule 00:00: mouth in [place] [address] the Medical morning Branch and 1 capsule in the evening. DULoxetine 2022-02- No [id number] 60mg Take 1 Univers 60 mg 0-11 11-08 capsule by ity of capsule 00:00: 00:00 mouth in [place] 00 :00 the Medical morning Branch and 1 capsule in the evening. DULoxetine 2022-02- No [id number] 60mg Take 1 Univers 60 mg 0-11 11-08 capsule by ity of capsule 00:00: 00:00 mouth in [place] 00 :00 the Medical morning Branch and 1 capsule in the evening. DULoxetine 2022-02- No [id number] 60mg Take 1 Univers 60 mg 0-11 11-08 capsule by ity of capsule 00:00: 00:00 mouth in [place] 00 :00 the Medical morning Branch and 1 capsule in the evening. simethicone 2022-02- No PRN, Unive rs (GAS RELIEF 0-02 10-02 Starting ity of (SIMETHICON 13:19: 16:49 on Mon [place] as E)) 40 00 :02 11/13/22 at Medical mg/0.6 mL 0819, Branch drops Until 11/13/22 at 1149, Routine, Intra-op simethicone 2022-02- No PRN, Unive rs (GAS RELIEF 0-02 10-02 Starting ity of (SIMETHICON 13:19: 16:49 on Mon [place] as E)) 40 00 :02 11/13/22 at Medical mg/0.6 mL 0819, Branch drops Until 11/13/22 at 1149, Routine, Intra-op losartan 2022-02 Yes 20mg Take 20 mg Uni vers potassium 0-02 by mouth. ity o f (LOSARTAN 09:49: [place] ORAL) Medical Branch propranolol 2022-02 Yes 80mg Take 1 Univ ers 80 mg 0-02 tablet by ity of tablet 09:49: mouth in [place] the Medical morning Branch and 1 tablet in the evening. allopurinoL 2022-02 Yes 100mg Take 1 Uni vers 100 mg 0-02 tablet by ity of tablet 09:49: mouth in [place] the Medical morning. Branch losartan 2022-02 Yes 20mg Take 20 mg Uni vers potassium 0-02 by mouth. ity o f (LOSARTAN 09:49: [place] ORAL) Medical Branch propranolol 2022-02 Yes 80mg Take 1 Univ ers 80 mg 0-02 tablet by ity of tablet 09:49: mouth in [place] the Medical morning Branch and 1 tablet in the evening. allopurinoL 2022-02 Yes 100mg Take 1 Uni vers 100 mg 0-02 tablet by ity of tablet 09:49: mouth in [place] the Medical morning. Branch losartan 2022-02 Yes 20mg Take 20 mg Uni vers potassium 0-02 by mouth. ity o f (LOSARTAN 09:49: [place] ORAL) Medical Branch propranolol 2022-02 Yes 80mg Take 1 Univ ers 80 mg 0-02 tablet by ity of tablet 09:49: mouth in [place] the Medical morning Branch and 1 tablet in the evening. allopurinoL 2022- Yes 100mg Take 1 Uni vers 100 mg 0-02 tablet by ity of tablet 09:49: mouth in [place] the Medical morning. Branch losartan 2022- Yes 20mg Take 20 mg Uni vers potassium 0-02 by mouth. ity o f (LOSARTAN 09:49: [place] ORAL) Medical Branch propranolol 2022- Yes 80mg Take 1 Univ ers 80 mg 0-02 tablet by ity of tablet 09:49: mouth in [place] the Medical morning Branch and 1 tablet in the evening. allopurinoL 2022- Yes 100mg Take 1 Uni vers 100 mg 0-02 tablet by ity of tablet 09:49: mouth in [place] the Medical morning. Branch losartan 2022- Yes 20mg Take 20 mg Uni vers potassium 0-02 by mouth. ity o f (LOSARTAN 09:49: [place] ORAL) Medical Branch propranolol 2022- Yes 80mg Take 1 Univ ers 80 mg 0-02 tablet by ity of tablet 09:49: mouth in [place] the Medical morning Branch and 1 tablet in the evening. allopurinoL 2022- Yes 100mg Take 1 Uni vers 100 mg 0-02 tablet by ity of tablet 09:49: mouth in [place] the Medical morning. Branch losartan 2022- Yes 20mg Take 20 mg Uni vers potassium 0-02 by mouth. ity o f (LOSARTAN 09:49: [place] ORAL) Medical Branch propranolol 3- Yes 80mg Take 1 Univ ers 80 mg 0-02 tablet by ity of tablet 09:49: mouth in [place] the Medical morning Branch and 1 tablet in the evening. allopurinoL 2022- Yes 100mg Take 1 Uni vers 100 mg 0-02 tablet by ity of tablet 09:49: mouth in [place] the Medical morning. Branch losartan 2022- Yes 20mg Take 20 mg Uni vers potassium 0-02 by mouth. ity o f (LOSARTAN 09:49: [place] ORAL) Medical Branch propranolol 2022-1 Yes 80mg Take 1 Univ ers 80 mg 0-02 tablet by ity of tablet 09:49: mouth in [place] the Medical morning Branch and 1 tablet in the evening. allopurinoL 2022- Yes 100mg Take 1 Uni vers 100 mg 0-02 tablet by ity of tablet 09:49: mouth in [place] the Medical morning. Branch losartan 2022- Yes 20mg Take 20 mg Uni vers potassium 0-02 by mouth. ity o f (LOSARTAN 09:49: [place] ORAL) Medical Branch propranolol 3-1 Yes 80mg Take 1 Univ ers 80 mg 0-02 tablet by ity of tablet 09:49: mouth in [place] the Medical morning Branch and 1 tablet in the evening. allopurinoL 2022- Yes 100mg Take 1 Uni vers 100 mg 0-02 tablet by ity of tablet 09:49: mouth in [place] the Medical morning. Branch losartan 2022- Yes 20mg Take 20 mg Uni vers potassium 0-02 by mouth. ity o f (LOSARTAN 09:49: [place] ORAL) Medical Branch propranolol 2022- Yes 80mg Take 1 Univ ers 80 mg 0-02 tablet by ity of tablet 09:49: mouth in [place] the Medical morning Branch and 1 tablet in the evening. allopurinoL 2022- Yes 100mg Take 1 Uni vers 100 mg 0-02 tablet by ity of tablet 09:49: mouth in [place] the Medical morning. Branch losartan 2022- Yes 20mg Take 20 mg Uni vers potassium 0-02 by mouth. ity o f (LOSARTAN 09:49: [place] ORAL) Medical Branch propranolol 3-1 Yes 80mg Take 1 Univ ers 80 mg 0-02 tablet by ity of tablet 09:49: mouth in [place] the Medical morning Branch and 1 tablet in the evening. allopurinoL 2022- Yes 100mg Take 1 Uni vers 100 mg 0-02 tablet by ity of tablet 09:49: mouth in [place] the Medical morning. Branch losartan 2022- Yes 20mg Take 20 mg Uni vers potassium 0-02 by mouth. ity o f (LOSARTAN 09:49: [place] ORAL) Medical Branch propranolol 2022- Yes 80mg Take 1 Univ ers 80 mg 0-02 tablet by ity of tablet 09:49: mouth in [place] the Medical morning Branch and 1 tablet in the evening. allopurinoL 2022-1 Yes 100mg Take 1 Uni vers 100 mg 0-02 tablet by ity of tablet 09:49: mouth in [place] the Medical morning. Branch losartan 2022- Yes 20mg Take 20 mg Uni vers potassium 0-02 by mouth. ity o f (LOSARTAN 09:49: [place] ORAL) Medical Branch propranolol 2022- Yes 80mg Take 1 Univ ers 80 mg 0-02 tablet by ity of tablet 09:49: mouth in [place] the Medical morning Branch and 1 tablet in the evening. allopurinoL 2022- Yes 100mg Take 1 Uni vers 100 mg 0-02 tablet by ity of tablet 09:49: mouth in [place] the Medical morning. Branch losartan 2022- Yes 20mg Take 20 mg Uni vers potassium 0-02 by mouth. ity o f (LOSARTAN 09:49: [place] ORAL) Medical Branch propranolol 2022- Yes 80mg Take 1 Univ ers 80 mg 0-02 tablet by ity of tablet 09:49: mouth in [place] the Medical morning Branch and 1 tablet in the evening. allopurinoL 2022- Yes 100mg Take 1 Uni vers 100 mg 0-02 tablet by ity of tablet 09:49: mouth in [place] the Medical morning. Branch losartan 2022- Yes 20mg Take 20 mg Uni vers potassium 0-02 by mouth. ity o f (LOSARTAN 09:49: [place] ORAL) Medical Branch propranolol 2022- Yes 80mg Take 1 Univ ers 80 mg 0-02 tablet by ity of tablet 09:49: mouth in [place] the Medical morning Branch and 1 tablet in the evening. allopurinoL 2022- Yes 100mg Take 1 Uni vers 100 mg 0-02 tablet by ity of tablet 09:49: mouth in [place] the Medical morning. Branch losartan 2022- Yes 20mg Take 20 mg Uni vers potassium 0-02 by mouth. ity o f (LOSARTAN 09:49: [place] ORAL) Medical Branch propranolol 3- Yes 80mg Take 1 Univ ers 80 mg 0-02 tablet by ity of tablet 09:49: mouth in [place] the Medical morning Branch and 1 tablet in the evening. allopurinoL 2022- Yes 100mg Take 1 Uni vers 100 mg 0-02 tablet by ity of tablet 09:49: mouth in [place] [address] the Medical morning. Branch losartan 2022- Yes 20mg Take 20 mg Uni vers potassium 0-02 by mouth. ity o f (LOSARTAN 09:49: [place] ORAL) Medical Branch propranolol 2022- Yes 80mg Take 1 Univ ers 80 mg 0-02 tablet by ity of tablet 09:49: mouth in [place] the Medical morning Branch and 1 tablet in the evening. allopurinoL 2022- Yes 100mg Take 1 Uni vers 100 mg 0-02 tablet by ity of tablet 09:49: mouth in [place] the Medical morning. Branch losartan 2022-1 Yes 20mg Take 20 mg Uni vers potassium 0-02 by mouth. ity o f (LOSARTAN 09:49: [place] ORAL) Medical Branch propranolol 3-1 Yes 80mg Take 1 Univ ers 80 mg 0-02 tablet by ity of tablet 09:49: mouth in [place] the Medical morning Branch and 1 tablet in the evening. allopurinoL 2022- Yes 100mg Take 1 Uni vers 100 mg 0-02 tablet by ity of tablet 09:49: mouth in [place] [address] the Medical morning. Branch losartan 2022- Yes 20mg Take 20 mg Uni vers potassium 0-02 by mouth. ity o f (LOSARTAN 09:49: [place] ORAL) Medical Branch propranolol 3-1 Yes 80mg Take 1 Univ ers 80 mg 0-02 tablet by ity of tablet 09:49: mouth in [place] the Medical morning Branch and 1 tablet in the evening. allopurinoL 2022- Yes 100mg Take 1 Uni vers 100 mg 0-02 tablet by ity of tablet 09:49: mouth in [place] the Medical morning. Branch losartan 2022- Yes 20mg Take 20 mg Uni vers potassium 0-02 by mouth. ity o f (LOSARTAN 09:49: [place] ORAL) Medical Branch propranolol 3-1 Yes 80mg Take 1 Univ ers 80 mg 0-02 tablet by ity of tablet 09:49: mouth in [place] the Medical morning Branch and 1 tablet in the evening. allopurinoL 2022- Yes 100mg Take 1 Uni vers 100 mg 0-02 tablet by ity of tablet 09:49: mouth in [place] the Medical morning. Branch losartan 2022- Yes 20mg Take 20 mg Uni vers potassium 0-02 by mouth. ity o f (LOSARTAN 09:49: [place] ORAL) Medical Branch propranolol 3-1 Yes 80mg Take 1 Univ ers 80 mg 0-02 tablet by ity of tablet 09:49: mouth in [place] 01 the Medical morning Branch and 1 tablet in the evening. allopurinoL 2022- Yes 100mg Take 1 Uni vers 100 mg 0-02 tablet by ity of tablet 09:49: mouth in [place] the Medical morning. Branch losartan 2022- Yes 20mg Take 20 mg Uni vers potassium 0-02 by mouth. ity o f (LOSARTAN 09:49: [place] ORAL) Medical Branch propranolol 3-1 Yes 80mg Take 1 Univ ers 80 mg 0-02 tablet by ity of tablet 09:49: mouth in [place] the Medical morning Branch and 1 tablet in the evening. allopurinoL 2022- Yes 100mg Take 1 Uni vers 100 mg 0-02 tablet by ity of tablet 09:49: mouth in [place] the Medical morning. Branch losartan 2022- Yes 20mg Take 20 mg Uni vers potassium 0-02 by mouth. ity o f (LOSARTAN 09:49: [place] ORAL) Medical Branch propranolol 3-1 Yes 80mg Take 1 Univ ers 80 mg 0-02 tablet by ity of tablet 09:49: mouth in [place] the Medical morning Branch and 1 tablet in the evening. allopurinoL 2022- Yes 100mg Take 1 Uni vers 100 mg 0-02 tablet by ity of tablet 09:49: mouth in [place] the Medical morning. Branch losartan 2022- Yes 20mg Take 20 mg Uni vers potassium 0-02 by mouth. ity o f (LOSARTAN 09:49: [place] ORAL) Medical Branch propranolol 3-1 Yes 80mg Take 1 Univ ers 80 mg 0-02 tablet by ity of tablet 09:49: mouth in [place] the Medical morning Branch and 1 tablet in the evening. allopurinoL 2022-1 Yes 100mg Take 1 Uni vers 100 mg 0-02 tablet by ity of tablet 09:49: mouth in [place] the Medical morning. Branch losartan 2022-1 Yes 20mg Take 20 mg Uni vers potassium 0-02 by mouth. ity o f (LOSARTAN 09:49: [place] ORAL) Medical Branch propranolol 3-1 Yes 80mg Take 1 Univ ers 80 mg 0-02 tablet by ity of tablet 09:49: mouth in [place] [address] the Medical morning Branch and 1 tablet in the evening. allopurinoL 3-1 Yes 100mg Take 1 Uni vers 100 mg 0-02 tablet by ity of tablet 09:49: mouth in [place] [address] the Medical morning. Branch losartan 2022- Yes 20mg Take 20 mg Uni vers potassium 0-02 by mouth. ity o f (LOSARTAN 09:49: [place] ORAL) Medical Branch propranolol 2022- Yes 80mg Take 1 Univ ers 80 mg 0-02 tablet by ity of tablet 09:49: mouth in [place] the Medical morning Branch and 1 tablet in the evening. allopurinoL 2022- Yes 100mg Take 1 Uni vers 100 mg 0-02 tablet by ity of tablet 09:49: mouth in [place] the Medical morning. Branch losartan 2022- Yes 20mg Take 20 mg Uni vers potassium 0-02 by mouth. ity o f (LOSARTAN 09:49: [place] ORAL) Medical Branch propranolol 2022- Yes 80mg Take 1 Univ ers 80 mg 0-02 tablet by ity of tablet 09:49: mouth in [place] the Medical morning Branch and 1 tablet in the evening. allopurinoL 2022- Yes 100mg Take 1 Uni vers 100 mg 0-02 tablet by ity of tablet 09:49: mouth in [place] the Medical morning. Branch losartan 2022- Yes 20mg Take 20 mg Uni vers potassium 0-02 by mouth. ity o f (LOSARTAN 09:49: [place] ORAL) Medical Branch propranolol 3-1 Yes 80mg Take 1 Univ ers 80 mg 0-02 tablet by ity of tablet 09:49: mouth in [place] the Medical morning Branch and 1 tablet in the evening. allopurinoL 2022- Yes 100mg Take 1 Uni vers 100 mg 0-02 tablet by ity of tablet 09:49: mouth in [place] the Medical morning. Branch losartan 2022- Yes 20mg Take 20 mg Uni vers potassium 0-02 by mouth. ity o f (LOSARTAN 09:49: [place] ORAL) Medical Branch propranolol 3-1 Yes 80mg Take 1 Univ ers 80 mg 0-02 tablet by ity of tablet 09:49: mouth in [place] the Medical morning Branch and 1 tablet in the evening. allopurinoL 2022- Yes 100mg Take 1 Uni vers 100 mg 0-02 tablet by ity of tablet 09:49: mouth in [place] [address] the Medical morning. Branch losartan 2022-1 Yes 20mg Take 20 mg Uni vers potassium 0-02 by mouth. ity o f (LOSARTAN 09:49: [place] ORAL) Medical Branch propranolol 2022-02 Yes 80mg Take 1 Univ ers 80 mg 0-02 tablet by ity of tablet 09:49: mouth in [place] 01 the [facility] and 1 tablet in the evening. allopurinoL 2022-02 Yes 100mg Take 1 Uni vers 100 mg 0-02 tablet by ity of tablet 09:49: mouth in [place] 01 the [facility]. Branch sucralfate 2022-02- Yes 1g Take 1 Univ ers 1 gram 0-02 11-02 tablet by ity of tablet 00:00: 04:59 mouth in [place] 00 :00 the [facility] and 1 tablet in the evening. Do all this for 30 days. sucralfate 2022-02- Yes 1g Take 1 Univ ers 1 gram 0-02 11-02 tablet by ity of tablet 00:00: 04:59 mouth in [place] 00 :00 the [facility] and 1 tablet in the evening. Do all this for 30 days. sucralfate 2022-02- Yes 1g Take 1 Univ ers 1 gram 0-02 11-02 tablet by ity of tablet 00:00: 04:59 mouth in [place] 00 :00 the [facility] and 1 tablet in the evening. Do all this for 30 days. sucralfate 2022-02- Yes 1g Take 1 Univ ers 1 gram 0-02 11-02 tablet by ity of tablet 00:00: 04:59 mouth in [place] 00 :00 the [facility] and 1 tablet in the evening. Do all this for 30 days. sucralfate 2022-02- Yes 1g Take 1 Univ ers 1 gram 0-02 11-02 tablet by ity of tablet 00:00: 04:59 mouth in [place] 00 :00 the [facility] and 1 tablet in the evening. Do all this for 30 days. sucralfate 2022-02- Yes 1g Take 1 Univ ers 1 gram 0-02 11-02 tablet by ity of tablet 00:00: 04:59 mouth in [place] 00 :00 the [facility] and 1 tablet in the evening. Do all this for 30 days. sucralfate 2022-02- Yes 1g Take 1 Univ ers 1 gram 0-02 11-02 tablet by ity of tablet 00:00: 04:59 mouth in [place] 00 :00 the Medical morning Branch and 1 tablet in the evening. Do all this for 30 days. sucralfate 2022-02- Yes 1g Take 1 Univ ers 1 gram 0-02 11-02 tablet by ity of tablet 00:00: 04:59 mouth in [place] 00 :00 the Medical morning Branch and 1 tablet in the evening. Do all this for 30 days. sucralfate 2022-02- Yes 1g Take 1 Univ ers 1 gram 0-02 11-02 tablet by ity of tablet 00:00: 04:59 mouth in [place] 00 :00 the Medical morning Branch and 1 tablet in the evening. Do all this for 30 days. sucralfate 2022-02- Yes 1g Take 1 Univ ers 1 gram 0-02 11-02 tablet by ity of tablet 00:00: 04:59 mouth in [place] 00 :00 the [facility] morning [place] and 1 tablet in the evening. Do all this for 30 days. sucralfate 2022-02- Yes 1g Take 1 Univ ers 1 gram 0-02 11-02 tablet by ity of tablet 00:00: 04:59 mouth in [place] 00 :00 the [facility] and 1 tablet in the evening. Do all this for 30 days. sucralfate 2022-02- Yes 1g Take 1 Univ ers 1 gram 0-02 11-02 tablet by ity of tablet 00:00: 04:59 mouth in [place] 00 :00 the [facility] morning [place] and 1 tablet in the evening. Do all this for 30 days. sucralfate 2022-02- Yes 1g Take 1 Univ ers 1 gram 0-02 11-02 tablet by ity of tablet 00:00: 04:59 mouth in [place] 00 :00 the [facility] morning [place] and 1 tablet in the evening. Do all this for 30 days. sucralfate 2022-02- Yes 1g Take 1 Univ ers 1 gram 0-02 11-02 tablet by ity of tablet 00:00: 04:59 mouth in [place] 00 :00 the [facility] morning [place] and 1 tablet in the evening. Do all this for 30 days. sucralfate 2022-02- Yes 1g Take 1 Univ ers 1 gram 0-02 11-02 tablet by ity of tablet 00:00: 04:59 mouth in [place] 00 :00 the [facility] and 1 tablet in the evening. Do all this for 30 days. sucralfate 2022-02- No 1g Take 1 Univ ers 1 gram 0-02 -02 tablet by ity of tablet 00:00: 04:59 mouth in [place] 00 :00 the [facility] and 1 tablet in the evening. Do all this for 30 days. sucralfate 2022-02- No 1g Take 1 Univ ers 1 gram 0-02 -02 tablet by ity of tablet 00:00: 04:59 mouth in [place] 00 :00 the [facility] and 1 tablet in the evening. Do all this for 30 days. sucralfate 2022-02- No 1g Take 1 Univ ers 1 gram 0-02 - tablet by ity of tablet 00:00: 04:59 mouth in [place] 00 :00 the [facility] and 1 tablet in the evening. Do all this for 30 days. sucralfate 2022-02- No 1g Take 1 Univ ers 1 gram 0-02 - tablet by ity of tablet 00:00: 04:59 mouth in [place] 00 :00 the [facility] and 1 tablet in the evening. Do all this for 30 days. sucralfate 2022-02- No 1g Take 1 Univ ers 1 gram 0-12-14 tablet by ity of tablet 00:00: 04:59 mouth in [place] 00 :00 the [facility] and 1 tablet in the evening. Do all this for 30 days. ketorolac 2022- No 30mg 30 mg, Unive rs (TORADOL) 11-03 Slow IV ity of injection 17:00: 16:25 Push, [place] 30 mg 00 :00 ONCE, 1 Medical dose, On Branch Sun11/03/22 at 1200, Routine NaCl 0.9% No 500mL at 999 Univ ers (NS) bolus 11-03 mL/hr, 500 it y of infusion 16:45: 18:14 mL, IV [place] 500 mL 00 :00 Infusion, Medical ONCE, 1 Branch dose, On Sun11/03/22 at 1145, SKYLAR butalbital- 2022- No 1{tbl} 1 tablet, Univers acetaminoph 11-03 Oral, ity of en-caff 16:00: 16:21 ONCE, 1 [place] (ESGIC) 00 :00 dose, On Medical 50-325-40 Fri Branch mg tablet 1 11/03/22 at tablet 1100, SKYLAR dexamethaso 2022- No 10mg 10 mg, Uni vers ne sod phos 11-03 Slow IV ity of PF 16:00: 16:27 Push, [place] injection 00 :00 ONCE, 1 Medical 10 mg dose, On Branch Sun11/03/22 at 1100, 1 mL metoclopram 2022- No 10mg 10 mg, Uni vers chelo HCl 11-03 Slow IV ity of (REGLAN) 16:00: 16:28 Push, [place] injection 00 :00 ONCE, 1 Medical 10 mg dose, On Branch Sun11/03/22 at 1100, SKYLAR diphenhydrA 2022- No 25mg 25 mg, Uni vers MINE 11-03 Slow IV ity of (BENADRYL) 16:00: 16:30 Push, [place] injection 00 :00 ONCE, 1 Medical 25 mg dose, On Branch 11/03/22 at 1100, STAT atorvastati 2022-0 2022- No 10mg Take 10 mg Univers n 10 mg 11-03 by mouth ity of tablet 10:48: 00:00 at [place] 00 :00 bedtime. [facility] atorvastati 2022-0 2023- No 10mg Take 10 mg Univers n 10 mg 11-03 by mouth ity of tablet 10:48: 00:00 at [place] 00 :00 bedtime. [facility] atorvastati 2022-0 202- No 10mg Take 10 mg Univers n 10 mg 11-03 by mouth ity of tablet 10:48: 00:00 at [place] 00 :00 bedtime. [facility] atorvastati 2022-0 2022- No 10mg Take 10 mg Univers n 10 mg 11-03 by mouth ity of tablet 10:48: 00:00 at [place] 00 :00 bedtime. [facility] atorvastati 2022-0 202- No 10mg Take 10 mg Univers n 10 mg 11-03 by mouth ity of tablet 10:48: 00:00 at [place] 00 :00 bedtime. Medical Branch atorvastati 2022- No 10mg Take 10 mg Univers n 10 mg 11-03 by mouth ity of tablet 10:48: 00:00 at [place] 00 :00 bedtime. Medical Branch atorvastati 2022- No 10mg Take 10 mg Univers n 10 mg 11-03 by mouth ity of tablet 10:48: 00:00 at [place] 00 :00 bedtime. Medical Branch atorvastati 2022- No 10mg Take 10 mg Univers n 10 mg 11-03 by mouth ity of tablet 10:48: 00:00 at [place] 00 :00 bedtime. Medical Branch atorvastati 2022- No 10mg Take 10 mg Univers n 10 mg 11-03 by mouth ity of tablet 10:48: 00:00 at [place] 00 :00 bedtime. Medical Branch atorvasta 2022- No 10mg Take 10 mg Univers n 10 mg 11-03 by mouth ity of tablet 10:48: 00:00 at [place] 00 :00 bedtime. Medical Branch butalbital- Yes [id number] 1{tbl} Take 1 Univers acetaminoph 9-22 tablet by ity of en-caff 00:00: mouth [place] 50-325-40 00 every 6 Medical mg tablet (six) Branch hours as needed for Pain (scale 7-10) or Pain (scale 4-6) for up to 12 doses. butalbital- Yes [id number] 1{tbl} Take 1 Univers acetaminoph 9-22 tablet by ity of en-caff 00:00: mouth [place] 50-325-40 00 every 6 Medical mg tablet (six) Branch hours as needed for Pain (scale 7-10) or Pain (scale 4-6) for up to 12 doses. butalbital- 0 Yes [id number] 1{tbl} Take 1 Univers acetaminoph 9-22 tablet by ity of en-caff 00:00: mouth [place] 50-325-40 00 every 6 Medical mg tablet (six) Branch hours as needed for Pain (scale 7-10) or Pain (scale 4-6) for up to 12 doses. butalbital- 2022-0 Yes [id number] 1{tbl} Take 1 Univers acetaminoph 9-22 tablet by ity of en-caff 00:00: mouth [place] 50-325-40 00 every 6 Medical mg tablet (six) Branch hours as needed for Pain (scale 7-10) or Pain (scale 4-6) for up to 12 doses. butalbital- 2022-0 Yes [id number] 1{tbl} Take 1 Univers acetaminoph 9-22 tablet by ity of en-caff 00:00: mouth [place] 50-325-40 00 every 6 Medical mg tablet (six) Branch hours as needed for Pain (scale 7-10) or Pain (scale 4-6) for up to 12 doses. butalbital- 2022-0 Yes [id number] 1{tbl} Take 1 Univers acetaminoph 9-22 tablet by ity of en-caff 00:00: mouth [place] 50-325-40 00 every 6 Medical mg tablet (six) Branch hours as needed for Pain (scale 7-10) or Pain (scale 4-6) for up to 12 doses. butalbital- 2022-0 Yes [id number] 1{tbl} Take 1 Univers acetaminoph 9-22 tablet by ity of en-caff 00:00: mouth [place] 50-325-40 00 every 6 Medical mg tablet (six) Branch hours as needed for Pain (scale 7-10) or Pain (scale 4-6) for up to 12 doses. butalbital- 2022-0 Yes [id number] 1{tbl} Take 1 Univers acetaminoph 9-22 tablet by ity of en-caff 00:00: mouth [place] 50-325-40 00 every 6 Medical mg tablet (six) Branch hours as needed for Pain (scale 7-10) or Pain (scale 4-6) for up to 12 doses. butalbital- 2022-0 Yes [id number] 1{tbl} Take 1 Univers acetaminoph 9-22 tablet by ity of en-caff 00:00: mouth [place] 50-325-40 00 every 6 Medical mg tablet (six) Branch hours as needed for Pain (scale 7-10) or Pain (scale 4-6) for up to 12 doses. butalbital- 2022-0 Yes [id number] 1{tbl} Take 1 Univers acetaminoph 9-22 tablet by ity of en-caff 00:00: mouth [place] 50-325-40 00 every 6 Medical mg tablet (six) Branch hours as needed for Pain (scale 7-10) or Pain (scale 4-6) for up to 12 doses. butalbital- 2022-0 Yes [id number] 1{tbl} Take 1 Univers acetaminoph 9-22 tablet by ity of en-caff 00:00: mouth [place] 50-325-40 00 every 6 Medical mg tablet (six) Branch hours as needed for Pain (scale 7-10) or Pain (scale 4-6) for up to 12 doses. butalbital- 0 Yes [id number] 1{tbl} Take 1 Univers acetaminoph 9-22 tablet by ity of en-caff 00:00: mouth [place] 50-325-40 00 every 6 Medical mg tablet (six) Branch hours as needed for Pain (scale 7-10) or Pain (scale 4-6) for up to 12 doses. butalbital- 2022-0 Yes [id number] 1{tbl} Take 1 Univers acetaminoph 9-22 tablet by ity of en-caff 00:00: mouth [place] 50-325-40 00 every 6 Medical mg tablet (six) Branch hours as needed for Pain (scale 7-10) or Pain (scale 4-6) for up to 12 doses. butalbital- 2022-0 Yes [id number] 1{tbl} Take 1 Univers acetaminoph 9-22 tablet by ity of en-caff 00:00: mouth [place] 50-325-40 00 every 6 Medical mg tablet (six) Branch hours as needed for Pain (scale 7-10) or Pain (scale 4-6) for up to 12 doses. butalbital- 2022-0 Yes [id number] 1{tbl} Take 1 Univers acetaminoph 9-22 tablet by ity of en-caff 00:00: mouth [place] 50-325-40 00 every 6 Medical mg tablet (six) Branch hours as needed for Pain (scale 7-10) or Pain (scale 4-6) for up to 12 doses. butalbital- 2022-0 Yes [id number] 1{tbl} Take 1 Univers acetaminoph 9-22 tablet by ity of en-caff 00:00: mouth [place] 50-325-40 00 every 6 Medical mg tablet (six) Branch hours as needed for Pain (scale 7-10) or Pain (scale 4-6) for up to 12 doses. butalbital- 2022-0 Yes [id number] 1{tbl} Take 1 Univers acetaminoph 9-22 tablet by ity of en-caff 00:00: mouth [place] 50-325-40 00 every 6 Medical mg tablet (six) Branch hours as needed for Pain (scale 7-10) or Pain (scale 4-6) for up to 12 doses. butalbital- 2022-0 Yes [id number] 1{tbl} Take 1 Univers acetaminoph 9-22 tablet by ity of en-caff 00:00: mouth [place] 50-325-40 00 every 6 Medical mg tablet (six) Branch hours as needed for Pain (scale 7-10) or Pain (scale 4-6) for up to 12 doses. butalbital- 2022-0 Yes [id number] 1{tbl} Take 1 Univers acetaminoph 9-22 tablet by ity of en-caff 00:00: mouth [place] 50-325-40 00 every 6 Medical mg tablet (six) Branch hours as needed for Pain (scale 7-10) or Pain (scale 4-6) for up to 12 doses. butalbital- 2022-0 Yes [id number] 1{tbl} Take 1 Univers acetaminoph 9-22 tablet by ity of en-caff 00:00: mouth [place] 50-325-40 00 every 6 Medical mg tablet (six) Branch hours as needed for Pain (scale 7-10) or Pain (scale 4-6) for up to 12 doses. butalbital- 2022-0 Yes [id number] 1{tbl} Take 1 Univers acetaminoph 9-22 tablet by ity of en-caff 00:00: mouth [place] 50-325-40 00 every 6 Medical mg tablet (six) Branch hours as needed for Pain (scale 7-10) or Pain (scale 4-6) for up to 12 doses. butalbital- 2022-0 Yes [id number] 1{tbl} Take 1 Univers acetaminoph 9-22 tablet by ity of en-caff 00:00: mouth [place] 50-325-40 00 every 6 Medical mg tablet (six) Branch hours as needed for Pain (scale 7-10) or Pain (scale 4-6) for up to 12 doses. butalbital- 2022-0 Yes [id number] 1{tbl} Take 1 Univers acetaminoph 9-22 tablet by ity of en-caff 00:00: mouth [place] 50-325-40 00 every 6 Medical mg tablet (six) Branch hours as needed for Pain (scale 7-10) or Pain (scale 4-6) for up to 12 doses. butalbital- 2022-0 Yes [id number] 1{tbl} Take 1 Univers acetaminoph 9-22 tablet by ity of en-caff 00:00: mouth [place] 50-325-40 00 every 6 Medical mg tablet (six) Branch hours as needed for Pain (scale 7-10) or Pain (scale 4-6) for up to 12 doses. butalbital- 2022-0 Yes [id number] 1{tbl} Take 1 Univers acetaminoph 9-22 tablet by ity of en-caff 00:00: mouth [place] 50-325-40 00 every 6 Medical mg tablet (six) Branch hours as needed for Pain (scale 7-10) or Pain (scale 4-6) for up to 12 doses. butalbital- 2022-0 Yes [id number] 1{tbl} Take 1 Univers acetaminoph 9-22 tablet by ity of en-caff 00:00: mouth [place] 50-325-40 00 every 6 Medical mg tablet (six) Branch hours as needed for Pain (scale 7-10) or Pain (scale 4-6) for up to 12 doses. butalbital- 2022-0 Yes [id number] 1{tbl} Take 1 Univers acetaminoph 9-22 tablet by ity of en-caff 00:00: mouth [place] 50-325-40 00 every 6 Medical mg tablet (six) Branch hours as needed for Pain (scale 7-10) or Pain (scale 4-6) for up to 12 doses. butalbital- 2023-0 Yes [id number] 1{tbl} Take 1 Univers acetaminoph 9-22 tablet by ity of en-caff 00:00: mouth [place] 50-325-40 00 every 6 Medical mg tablet (six) Branch hours as needed for Pain (scale 7-10) or Pain (scale 4-6) for up to 12 doses. butalbital- 2023-0 Yes [id number] 1{tbl} Take 1 Univers acetaminoph 9-22 tablet by ity of en-caff 00:00: mouth [place] 50-325-40 00 every 6 Medical mg tablet (six) Branch hours as needed for Pain (scale 7-10) or Pain (scale 4-6) for up to 12 doses. butalbital- 2023-0 Yes [id number] 1{tbl} Take 1 Univers acetaminoph 9-22 tablet by ity of en-caff 00:00: mouth [place] 50-325-40 00 every 6 Medical mg tablet (six) Branch hours as needed for Pain (scale 7-10) or Pain (scale 4-6) for up to 12 doses. peg-electro 2023-0 Yes [id number] Take as Univers lyte soln 9-07 directed ity of 236-22.74-6 00:00[place] .[place] -5.[place] 00 colonoscop Medi rogelio gram y Branch solution peg-electro 2023-0 Yes [id number] Take as Univers lyte soln 9-07 directed ity of 236-22.74-6 00:00: [place] -5.86 00 colonoscop Medi rogelio gram y Branch solution peg-electro 2023-0 Yes [id number] Take as Univers lyte soln 9-07 directed ity of 236-22.74-6 00:00: [place] -5.86 00 colonoscop Medi rogelio gram y Branch solution peg-electro 2023-0 Yes [id number] Take as Univers lyte soln 9-07 directed ity of 236-22.74-6 00:00: [place] -5.86 00 colonoscop Medi rogelio gram y Branch solution peg-electro 2023-0 Yes [id number] Take as Univers lyte soln 9-07 directed ity of 236-22.74-6 00:00: [place] -5.[place] 00 colonoscop Medi rogelio gram y Branch solution peg-electro Yes [id number] Take as Univers lyte soln 10-19 directed ity of 236-22.74-6 00:00: [place] -5.[place] 00 colonoscop Medi rogelio gram y Branch solution peg-electro 2022- No [id number] Take as [facility] [place] [facility] lyte soln 10-19 directed ity o f 236-22.74-6 00:00: 00:00 before [place] .74 -5.86 00 :00 colonoscop Medi rogelio gram y Branch solution peg-electro 2022- No [id number] Take as [facility] [place] [facility] lyte soln 10-19 directed ity o f 236-22.74-6 00:00: 00:00 before [place] .74 -5.86 00 :00 colonoscop Medi rogelio gram y Branch solution peg-electro 2022- No [id number] Take as [facility] [place] [facility] lyte sol 10-19 directed ity o f 236-22.74-6 00:00: 00:00 before [place] .74 -5.86 00 :00 colonoscop Medi rogelio gram y Branch solution peg-electro 2022- No [id number] Take as [facility] [place] [facility] 10[facility] directed ity o f 236-22.74-6 00:00: 00:00 before [place] .74 -5.86 00 :00 colonoscop Medi rogelio gram y Branch solution peg-electro 0 2022- No [id number] Take as [facility] [place] [facility] lyte soln 10-19 directed ity o f 236-22.74-6 00:00: 00:00 before [place] .74 -5.86 00 :00 colonoscop Medi rogelio gram y Branch solution peg-electro 0 2022- No [id number] Take as [facility] [place] [facility] lyte soln 10-19 directed ity o f 236-22.74-6 00:00: 00:00 before [place] .74 -5.86 00 :00 colonoscop Medi rogelio gram y Branch solution peg-electro 0 2022- No [id number] Take as [facility] 10-19 directed ity o f 236-22.74-6 00:00: 00:00 before [place] .74 -5.86 00 :00 colonoscop Medi rogelio gram y Branch solution peg-electro 2022-0 2022- No [id number] Take as [facility] 10-19 directed ity o f 236-22.74-6 00:00: 00:00 before [place] .74 -5.86 00 :00 colonoscop Medi rogelio gram y Branch solution busPIRone 2023-0 Yes [id number] 15mg Take 1 Un cristhian 15 mg 8-23 tablet by ity of tablet 00:00: mouth in [place] 00 the Medical morning Branch and 1 tablet in the evening. busPIRone 2023-0 Yes [id number] 15mg Take 1 Un cristhian 15 mg 8-23 tablet by ity of tablet 00:00: mouth in [place] 00 the Medical morning Branch and 1 tablet in the evening. busPIRone 2023-0 Yes [id number] 15mg Take 1 Un cristhian 15 mg 8-23 tablet by ity of tablet 00:00: mouth in [place] 00 the Medical morning Branch and 1 tablet in the evening. busPIRone 2023-0 Yes [id number] 15mg Take 1 Un cristhian 15 mg 8-23 tablet by ity of tablet 00:00: mouth in [place] 00 the Medical morning Branch and 1 tablet in the evening. busPIRone 2023-0 Yes [id number] 15mg Take 1 Un cristhian 15 mg 8-23 tablet by ity of tablet 00:00: mouth in [place] 00 the Medical morning Branch and 1 tablet in the evening. busPIRone 2023-0 Yes [id number] 15mg Take 1 Un cristhian 15 mg 8-23 tablet by ity of tablet 00:00: mouth in [place] 00 the Medical morning Branch and 1 tablet in the evening. busPIRone 2023-0 Yes [id number] 15mg Take 1 Un cristhian 15 mg 8-23 tablet by ity of tablet 00:00: mouth in [place] 00 the Medical morning Branch and 1 tablet in the evening. busPIRone 2023-0 Yes [id number] 15mg Take 1 Un cristhian 15 mg 8-23 tablet by ity of tablet 00:00: mouth in [place] 00 the Medical morning Branch and 1 tablet in the evening. busPIRone 2023-0 Yes [id number] 15mg Take 1 Un cristhian 15 mg 8-23 tablet by ity of tablet 00:00: mouth in [place] 00 the Medical morning Branch and 1 tablet in the evening. busPIRone 2023-0 Yes [id number] 15mg Take 1 Un cristhian 15 mg 8-23 tablet by ity of tablet 00:00: mouth in [place] 00 the Medical morning Branch and 1 tablet in the evening. busPIRone 2023-0 Yes [id number] 15mg Take 1 Un cristhian 15 mg 8-23 tablet by ity of tablet 00:00: mouth in [place] 00 the Medical morning Branch and 1 tablet in the evening. busPIRone 2023-0 Yes [id number] 15mg Take 1 Un cristhian 15 mg 8-23 tablet by ity of tablet 00:00: mouth in [place] 00 the Medical morning Branch and 1 tablet in the evening. busPIRone 2023-0 Yes [id number] 15mg Take 1 Un cristhian 15 mg 8-23 tablet by ity of tablet 00:00: mouth in [place] [address] the Medical morning Branch and 1 tablet in the evening. busPIRone 2023-0 Yes [id number] 15mg Take 1 Un cristhian 15 mg 8-23 tablet by ity of tablet 00:00: mouth in [place] 00 the Medical morning Branch and 1 tablet in the evening. busPIRone 2023-0 Yes [id number] 15mg Take 1 Un cristhian 15 mg 8-23 tablet by ity of tablet 00:00: mouth in [place] 00 the Medical morning Branch and 1 tablet in the evening. busPIRone 2023-0 Yes [id number] 15mg Take 1 Un cristhian 15 mg 8-23 tablet by ity of tablet 00:00: mouth in [place] 00 the Medical morning Branch and 1 tablet in the evening. busPIRone 2023-0 Yes [id number] 15mg Take 1 Un cristhian 15 mg 8-23 tablet by ity of tablet 00:00: mouth in [place] [address] the Medical morning Branch and 1 tablet in the evening. busPIRone 2023-0 Yes [id number] 15mg Take 1 Un cristhian 15 mg 8-23 tablet by ity of tablet 00:00: mouth in [place] 00 the Medical morning Branch and 1 tablet in the evening. busPIRone 2023-0 Yes [id number] 15mg Take 1 Un cristhian 15 mg 8-23 tablet by ity of tablet 00:00: mouth in [place] 00 the Medical morning Branch and 1 tablet in the evening. busPIRone 2023-0 Yes [id number] 15mg Take 1 Un cristhian 15 mg 8-23 tablet by ity of tablet 00:00: mouth in [place] 00 the Medical morning Branch and 1 tablet in the evening. busPIRone 2023-0 Yes [id number] 15mg Take 1 Un cristhian 15 mg 8-23 tablet by ity of tablet 00:00: mouth in [place] 00 the Medical morning Branch and 1 tablet in the evening. busPIRone 2023-0 Yes [id number] 15mg Take 1 Un cristhian 15 mg 8-23 tablet by ity of tablet 00:00: mouth in [place] 00 the Medical morning Branch and 1 tablet in the evening. busPIRone 2023-0 Yes [id number] 15mg Take 1 Un cristhian 15 mg 8-23 tablet by ity of tablet 00:00: mouth in [place] 00 the Medical morning Branch and 1 tablet in the evening. busPIRone 2023-0 Yes [id number] 15mg Take 1 Un cristhian 15 mg 8-23 tablet by ity of tablet 00:00: mouth in [place] 00 the Medical morning Branch and 1 tablet in the evening. busPIRone 2023-0 Yes [id number] 15mg Take 1 Un cristhian 15 mg 8-23 tablet by ity of tablet 00:00: mouth in [place] 00 the Medical morning Branch and 1 tablet in the evening. busPIRone 2023-0 Yes [id number] 15mg Take 1 Un cristhian 15 mg 8-23 tablet by ity of tablet 00:00: mouth in [place] 00 the Medical morning Branch and 1 tablet in the evening. busPIRone 2023-0 Yes [id number] 15mg Take 1 Un cristhian 15 mg 8-23 tablet by ity of tablet 00:00: mouth in [place] [address] the Medical morning Branch and 1 tablet in the evening. busPIRone 2023-0 Yes [id number] 15mg Take 1 Un cristhian 15 mg 8-23 tablet by ity of tablet 00:00: mouth in [place] [address] the Medical morning Branch and 1 tablet in the evening. busPIRone 3-0 Yes [id number] 15mg Take 1 Un cristhian 15 mg 8-23 tablet by ity of tablet 00:00: mouth in [place] 00 the Medical morning Branch and 1 tablet in the evening. busPIRone 3-0 Yes [id number] 15mg Take 1 Un cristhian 15 mg 8-23 tablet by ity of tablet 00:00: mouth in [place] 00 the Medical morning Branch and 1 tablet in the evening. busPIRone 3-0 Yes [id number] 15mg Take 1 Un cristhian 15 mg 8-23 tablet by ity of tablet 00:00: mouth in [place] 00 the Medical morning Branch and 1 tablet in the evening. busPIRone 3-0 Yes [id number] 15mg Take 1 Un cr[facility]ian 15 mg 8-23 tablet by ity of tablet 00:00: mouth in [place] 00 the Medical morning Branch and 1 tablet in the evening. busPIRone 3-0 Yes [id number] 15mg Take 1 Un cr[facility]ian 15 mg 8-23 tablet by ity of tablet 00:00: mouth in [place] 00 the Medical morning Branch and 1 tablet in the evening. busPIRone 3-0 Yes [id number] 15mg Take 1 Un [facility]ian 15 mg 8-23 tablet by ity of tablet 00:00: mouth in [place] 00 the Medical morning Branch and 1 tablet in the evening. busPIRone 3-0 Yes [id number] 15mg Take 1 Un [facility] 15 mg 8-23 tablet by ity of tablet 00:00: mouth in [place] 00 the Medical morning Branch and 1 tablet in the evening. busPIRone 3-0 Yes [id number] 15mg Take 1 Un cr[facility]ian 15 mg 8-23 tablet by ity of tablet 00:00: mouth in [place] 00 the Medical morning Branch and 1 tablet in the evening. busPIRone 3-0 Yes [id number] 15mg Take 1 Un cr[facility]ian 15 mg 8-23 tablet by ity of tablet 00:00: mouth in [place] 00 the Medical morning Branch and 1 tablet in the evening. busPIRone 3-0 2023- No [id number] 15mg Take 1 U nivers 15 mg 8-23 - tablet by ity of tablet 00:00: 00:00 mouth in [place] 00 :00 the Medical morning Branch and 1 tablet in the evening. busPIRone 3-0 2022- No [id number] 15mg Take 1 U nivers 15 mg 8-04 01- tablet by ity of tablet 00:00: 00:00 mouth in [place] 00 :00 the Medical morning Branch and 1 tablet in the evening. busPIRone 3-0 2022- No [id number] 15mg Take 1 U nivers 15 mg 8-04 01- tablet by ity of tablet 00:00: 00:00 mouth in [place] 00 :00 the Medical morning Branch and 1 tablet in the evening. busPIRone 3-0 2022- No [id number] 15mg Take 1 U nivers 15 mg 8-04 01- tablet by ity of tablet 00:00: 00:00 mouth in [place] 00 :00 the Medical morning Branch and 1 tablet in the evening. busPIRone 3-0 2022- No [id number] 15mg Take 1 U nivers 15 mg 8-04 01- tablet by ity of tablet 00:00: 00:00 mouth in [place] 00 :00 the Medical morning Branch and 1 tablet in the evening. busPIRone 3-0 2022- No [id number] 15mg Take 1 U nivers 15 mg 8-04 01- tablet by ity of tablet 00:00: 00:00 mouth in [place] 00 :00 the Medical morning Branch and 1 tablet in the evening. clonazePAM 2023-0 Yes [id number] Take 1 U nivers 1 mg tablet 8-17 tablet by ity of 00:00: mouth [place] 00 twice Medical daily as Branch needed for anxiety. clonazePAM 3-0 Yes [id number] Take 1 U nivers 1 mg tablet 8-17 tablet by ity of 00:00: mouth [place] 00 twice Medical daily as Branch needed for anxiety. clonazePAM 2023-0 Yes [id number] Take 1 U nivers 1 mg tablet 8-17 tablet by ity of 00:00: mouth [place] 00 twice Medical daily as Branch needed for anxiety. clonazePAM 2023-0 Yes [id number] Take 1 U nivers 1 mg tablet 8-17 tablet by ity of 00:00: mouth [place] 00 twice Medical daily as Branch needed for anxiety. clonazePAM 2023-0 Yes [id number] Take 1 U nivers 1 mg tablet 8-17 tablet by ity of 00:00: mouth [place] 00 twice Medical daily as Branch needed for anxiety. clonazePAM 2023-0 Yes [id number] Take 1 U nivers 1 mg tablet 8-17 tablet by ity of 00:00: mouth [place] 00 twice Medical daily as Branch needed for anxiety. clonazePAM 2023-0 Yes [id number] Take 1 U nivers 1 mg tablet 8-17 tablet by ity of 00:00: mouth [place] 00 twice Medical daily as Branch needed for anxiety. clonazePAM 2023-0 Yes [id number] Take 1 U nivers 1 mg tablet 8-17 tablet by ity of 00:00: mouth [place] 00 twice Medical daily as Branch needed for anxiety. clonazePAM 2023-0 Yes [id number] Take 1 U nivers 1 mg tablet 8-17 tablet by ity of 00:00: mouth [place] 00 twice Medical daily as Branch needed for anxiety. clonazePAM 2023-0 Yes [id number] Take 1 U nivers 1 mg tablet 8-17 tablet by ity of 00:00: mouth [place] 00 twice Medical daily as Branch needed for anxiety. clonazePAM 3-0 Yes [id number] Take 1 U nivers 1 mg tablet 8-17 tablet by ity of 00:00: mouth [place] 00 twice Medical daily as Branch needed for anxiety. clonazePAM 3-0 Yes [id number] Take 1 U nivers 1 mg tablet 8-17 tablet by ity of 00:00: mouth [place] 00 twice Medical daily as Branch needed for anxiety. clonazePAM 2023-0 Yes [id number] Take 1 U nivers 1 mg tablet 8-17 tablet by ity of 00:00: mouth [place] 00 twice Medical daily as Branch needed for anxiety. clonazePAM 2023-0 Yes [id number] Take 1 U nivers 1 mg tablet 8-17 tablet by ity of 00:00: mouth [place] 00 twice Medical daily as Branch needed for anxiety. clonazePAM 2023-0 Yes [id number] Take 1 U nivers 1 mg tablet 8-17 tablet by ity of 00:00: mouth [place] 00 twice Medical daily as Branch needed for anxiety. clonazePAM 2023-0 Yes [id number] Take 1 U nivers 1 mg tablet 8-17 tablet by ity of 00:00: mouth [place] 00 twice Medical daily as Branch needed for anxiety. clonazePAM 2023-0 Yes [id number] Take 1 U nivers 1 mg tablet 8-17 tablet by ity of 00:00: mouth [place] 00 twice Medical daily as Branch needed for anxiety. clonazePAM 2023-0 Yes [id number] Take 1 U nivers 1 mg tablet 8-17 tablet by ity of 00:00: mouth [place] 00 twice Medical daily as Branch needed for anxiety. clonazePAM 2023-0 Yes [id number] Take 1 U nivers 1 mg tablet 8-17 tablet by ity of 00:00: mouth [place] 00 twice Medical daily as Branch needed for anxiety. clonazePAM 2023-0 Yes [id number] Take 1 U nivers 1 mg tablet 8-17 tablet by ity of 00:00: mouth [place] 00 twice Medical daily as Branch needed for anxiety. clonazePAM 2023-0 Yes [id number] Take 1 U nivers 1 mg tablet 8-17 tablet by ity of 00:00: mouth [place] 00 twice Medical daily as Branch needed for anxiety. clonazePAM 3-0 Yes [id number] Take 1 U nivers 1 mg tablet 8-17 tablet by ity of 00:00: mouth [place] 00 twice Medical daily as Branch needed for anxiety. clonazePAM 3-0 Yes [id number] Take 1 U nivers 1 mg tablet 8-17 tablet by ity of 00:00: mouth [place] 00 twice Medical daily as Branch needed for anxiety. clonazePAM 3-0 Yes [id number] Take 1 U nivers 1 mg tablet 8-17 tablet by ity of 00:00: mouth [place] 00 twice Medical daily as Branch needed for anxiety. clonazePAM 3-0 Yes [id number] Take 1 U nivers 1 mg tablet 8-17 tablet by ity of 00:00: mouth [place] 00 twice Medical daily as Branch needed for anxiety. clonazePAM 2023-0 Yes [id number] Take 1 U nivers 1 mg tablet 8-17 tablet by ity of 00:00: mouth [place] 00 twice Medical daily as Branch needed for anxiety. clonazePAM 2023-0 Yes [id number] Take 1 U nivers 1 mg tablet 8-17 tablet by ity of 00:00: mouth [place] 00 twice Medical daily as Branch needed for anxiety. clonazePAM 2023-0 Yes [id number] Take 1 U nivers 1 mg tablet 8-17 tablet by ity of 00:00: mouth [place] 00 twice Medical daily as Branch needed for anxiety. clonazePAM 2023-0 Yes [id number] Take 1 U nivers 1 mg tablet 8-17 tablet by ity of 00:00: mouth [place] 00 twice Medical daily as Branch needed for anxiety. clonazePAM 2023-0 Yes [id number] Take 1 U nivers 1 mg tablet 8-17 tablet by ity of 00:00: mouth [place] 00 twice Medical daily as Branch needed for anxiety. clonazePAM 2023-0 Yes [id number] Take 1 U nivers 1 mg tablet 8-17 tablet by ity of 00:00: mouth [place] 00 twice Medical daily as Branch needed for anxiety. clonazePAM 2023-0 Yes [id number] Take 1 U nivers 1 mg tablet 8-17 tablet by ity of 00:00: mouth [place] 00 twice Medical daily as Branch needed for anxiety. clonazePAM 2023-0 Yes [id number] Take 1 U nivers 1 mg tablet 8-17 tablet by ity of 00:00: mouth [place] 00 twice Medical daily as Branch needed for anxiety. clonazePAM 2023-0 Yes [id number] Take 1 U nivers 1 mg tablet 8-17 tablet by ity of 00:00: mouth [place] 00 twice Medical daily as Branch needed for anxiety. clonazePAM 3-0 Yes [id number] Take 1 U nivers 1 mg tablet 8-17 tablet by ity of 00:00: mouth [place] 00 twice Medical daily as Branch needed for anxiety. clonazePAM 3-0 Yes [id number] Take 1 U nivers 1 mg tablet 8-17 tablet by ity of 00:00: mouth [place] 00 twice Medical daily as Branch needed for anxiety. clonazePAM 2023-0 Yes [id number] Take 1 U nivers 1 mg tablet 8-17 tablet by ity of 00:00: mouth [place] 00 twice Medical daily as Branch needed for anxiety. clonazePAM 2023-0 Yes [id number] Take 1 U nivers 1 mg tablet 8-17 tablet by ity of 00:00: mouth [place] 00 twice Medical daily as Branch needed for anxiety. clonazePAM 2023-0 Yes [id number] Take 1 U nivers 1 mg tablet 8-17 tablet by ity of 00:00: mouth [place] 00 twice Medical daily as Branch needed for anxiety. clonazePAM 2023-0 Yes [id number] Take 1 U nivers 1 mg tablet 8-17 tablet by ity of 00:00: mouth [place] 00 twice Medical daily as Branch needed for anxiety. clonazePAM 2023-0 Yes [id number] Take 1 U nivers 1 mg tablet 8-17 tablet by ity of 00:00: mouth [place] 00 twice Medical daily as Branch needed for anxiety. clonazePAM 2023-0 Yes [id number] Take 1 U nivers 1 mg tablet 8-17 tablet by ity of 00:00: mouth [place] 00 twice Medical daily as Branch needed for anxiety. clonazePAM 2023-0 Yes [id number] Take 1 U nivers 1 mg tablet 8-17 tablet by ity of 00:00: mouth [place] 00 twice Medical daily as Branch needed for anxiety. clonazePAM 3-0 Yes [id number] Take 1 U nivers 1 mg tablet 8-17 tablet by ity of 00:00: mouth [place] 00 twice Medical daily as Branch needed for anxiety. clonazePAM 3-0 3- No [id number] Take 1 [facility] 1 mg tablet 8-17 11-08 tablet by it y of 00:00: 00:00 mouth [place] 00 :00 twice Medical daily as Branch needed for anxiety. clonazePAM 3-0 3- No [id number] Take 1 [facility] 1 mg tablet 8-17 11-08 tablet by it y of 00:00: 00:00 mouth [place] 00 :00 twice Medical daily as Branch needed for anxiety. clonazePAM 3-0 3- No [id number] Take 1 [facility] 1 mg tablet 8-17 11-08 tablet by it y of 00:00: 00:00 mouth [place] 00 :00 twice Medical daily as Branch needed for anxiety. clonazePAM 3-0 3- No [id number] Take 1 [facility] 1 mg tablet 8-17 11-08 tablet by it y of 00:00: 00:00 mouth [place] 00 :00 twice Medical daily as Branch needed for anxiety. clonazePAM 3-0 3- No [id number] Take 1 [facility] 1 mg tablet 8-17 11-08 tablet by it y of 00:00: 00:00 mouth [place] 00 :00 twice Medical daily as Branch needed for anxiety. DULoxetine 2023-0 Yes [id number] 60mg Take 1 U nivers 60 mg 8-15 capsule by ity of capsule 00:00: mouth in [place] 00 the Medical morning Branch and 1 capsule in the evening. DULoxetine 2023-0 Yes [id number] 60mg Take 1 U nivers 60 mg 8-15 capsule by ity of capsule 00:00: mouth in [place] 00 the Medical morning Branch and 1 capsule in the evening. DULoxetine 2023-0 Yes [id number] 60mg Take 1 U nivers 60 mg 8-15 capsule by ity of capsule 00:00: mouth in [place] 00 the Medical morning Branch and 1 capsule in the evening. DULoxetine 2023-0 Yes [id number] 60mg Take 1 U nivers 60 mg 8-15 capsule by ity of capsule 00:00: mouth in [place] [address] the Medical morning Branch and 1 capsule in the evening. DULoxetine 2023-0 Yes [id number] 60mg Take 1 U nivers 60 mg 8-15 capsule by ity of capsule 00:00: mouth in [place] [address] the Medical morning Branch and 1 capsule in the evening. DULoxetine 2023-0 Yes [id number] 60mg Take 1 U nivers 60 mg 8-15 capsule by ity of capsule 00:00: mouth in [place] [address] the Medical morning Branch and 1 capsule in the evening. DULoxetine 2023-0 Yes [id number] 60mg Take 1 U nivers 60 mg 8-15 capsule by ity of capsule 00:00: mouth in [place] [address] the Medical morning Branch and 1 capsule in the evening. DULoxetine 2023-0 Yes [id number] 60mg Take 1 U nivers 60 mg 8-15 capsule by ity of capsule 00:00: mouth in [place] [address] the Medical morning Branch and 1 capsule in the evening. DULoxetine 2023-0 Yes [id number] 60mg Take 1 U nivers 60 mg 8-15 capsule by ity of capsule 00:00: mouth in [place] [address] the Medical morning Branch and 1 capsule in the evening. DULoxetine 2023-0 Yes [id number] 60mg Take 1 U nivers 60 mg 8-15 capsule by ity of capsule 00:00: mouth in [place] [address] the Medical morning Branch and 1 capsule in the evening. DULoxetine 2023-0 Yes [id number] 60mg Take 1 U nivers 60 mg 8-15 capsule by ity of capsule 00:00: mouth in [place] [address] the Medical morning Branch and 1 capsule in the evening. DULoxetine 2023-0 Yes [id number] 60mg Take 1 U nivers 60 mg 8-15 capsule by ity of capsule 00:00: mouth in [place] [address] the Medical morning Branch and 1 capsule in the evening. DULoxetine 2023-0 Yes [id number] 60mg Take 1 U nivers 60 mg 8-15 capsule by ity of capsule 00:00: mouth in [place] [address] the Medical morning Branch and 1 capsule in the evening. DULoxetine 2023-0 Yes [id number] 60mg Take 1 U nivers 60 mg 8-15 capsule by ity of capsule 00:00: mouth in [place] 00 the Medical morning Branch and 1 capsule in the evening. DULoxetine 2023-0 Yes [id number] 60mg Take 1 U nivers 60 mg 8-15 capsule by ity of capsule 00:00: mouth in [place] 00 the Medical morning Branch and 1 capsule in the evening. DULoxetine 2023-0 Yes [id number] 60mg Take 1 U nivers 60 mg 8-15 capsule by ity of capsule 00:00: mouth in [place] [address] the Medical morning Branch and 1 capsule in the evening. DULoxetine 2023-0 Yes [id number] 60mg Take 1 U nivers 60 mg 8-15 capsule by ity of capsule 00:00: mouth in [place] [address] the Medical morning Branch and 1 capsule in the evening. DULoxetine 2023-0 Yes [id number] 60mg Take 1 U nivers 60 mg 8-15 capsule by ity of capsule 00:00: mouth in [place] [address] the Medical morning Branch and 1 capsule in the evening. DULoxetine 2023-0 Yes [id number] 60mg Take 1 U nivers 60 mg 8-15 capsule by ity of capsule 00:00: mouth in [place] [address] the Medical morning Branch and 1 capsule in the evening. DULoxetine 2023-0 Yes [id number] 60mg Take 1 U nivers 60 mg 8-15 capsule by ity of capsule 00:00: mouth in [place] [address] the Medical morning Branch and 1 capsule in the evening. DULoxetine 2023-0 Yes [id number] 60mg Take 1 U nivers 60 mg 8-15 capsule by ity of capsule 00:00: mouth in [place] [address] the Medical morning Branch and 1 capsule in the evening. DULoxetine 2023-0 Yes [id number] 60mg Take 1 U nivers 60 mg 8-15 capsule by ity of capsule 00:00: mouth in [place] [address] the Medical morning Branch and 1 capsule in the evening. DULoxetine 2023-0 Yes [id number] 60mg Take 1 U nivers 60 mg 8-15 capsule by ity of capsule 00:00: mouth in [place] [address] the Medical morning Branch and 1 capsule in the evening. DULoxetine 2023-0 Yes [id number] 60mg Take 1 U nivers 60 mg 8-15 capsule by ity of capsule 00:00: mouth in [place] 00 the Medical morning Branch and 1 capsule in the evening. DULoxetine 2022-0 Yes [id number] 60mg Take 1 U nivers 60 mg 8-15 capsule by ity of capsule 00:00: mouth in [place] 00 the Medical morning Branch and 1 capsule in the evening. DULoxetine 2022-0 Yes [id number] 60mg Take 1 U nivers 60 mg 8-15 capsule by ity of capsule 00:00: mouth in [place] 00 the Medical morning Branch and 1 capsule in the evening. DULoxetine 2022- No [id number] 60mg Take 1 [facility] 60 mg 8-15 10-11 capsule by ity of capsule 00:00: 00:00 mouth in [place] 00 :00 the Medical morning Branch and 1 capsule in the evening. DULoxetine 2022- No [id number] 60mg Take 1 [facility] 60 mg 8-15 10-11 capsule by ity of capsule 00:00: 00:00 mouth in [place] 00 :00 the Medical morning Branch and 1 capsule in the evening. DULoxetine 2022- No [id number] 60mg Take 1 [facility] 60 mg 8-15 10-11 capsule by ity of capsule 00:00: 00:00 mouth in [place] 00 :00 the Medical morning Branch and 1 capsule in the evening. DULoxetine 2022-2022- No [id number] 60mg Take 1 [facility] 60 mg 8-15 10-11 capsule by ity of capsule 00:00: 00:00 mouth in [place] 00 :00 the Medical morning Branch and 1 capsule in the evening. DULoxetine 2022-2022- No [id number] 60mg Take 1 [facility] 60 mg 8-15 10-11 capsule by ity of capsule 00:00: 00:00 mouth in [place] 00 :00 the Medical morning Branch and 1 capsule in the evening. DULoxetine 2022-0 3- No [id number] 60mg Take 1 [facility] 60 mg 8-15 10-11 capsule by ity of capsule 00:00: 00:00 mouth in [place] 00 :00 the Medical morning Branch and 1 capsule in the evening. DULoxetine 2022-0 3- No [id number] 60mg Take 1 [facility] 60 mg 8-15 10-11 capsule by ity of capsule 00:00: 00:00 mouth in [place] 00 :00 [facility] and 1 capsule in the evening. DULoxetine 2022-2022- No [id number] 60mg Take 1 [facility] 60 mg 8-15 10-11 capsule by ity of capsule 00:00: 00:00 mouth in [place] 00 :00 [facility] and 1 capsule in the evening. DULoxetine 2022-3- No [id number] 60mg Take 1 [facility] 60 mg 8-15 10-11 capsule by ity of capsule 00:00: 00:00 mouth in [place] 00 :00 [facility] and 1 capsule in the evening. DULoxetine 2022-3- No [id number] 60mg Take 1 [facility] 60 mg 8-15 10-11 capsule by ity of capsule 00:00: 00:00 mouth in [place] 00 :00 [facility] and 1 capsule in the evening. DULoxetine 2022-2022- No [id number] 60mg Take 1 [facility] 60 mg 8-15 10-11 capsule by ity of capsule 00:00: 00:00 mouth in [place] 00 :00 [facility] and 1 capsule in the evening. DULoxetine 2022-3- No [id number] 60mg Take 1 [facility] 60 mg 8-15 10-11 capsule by ity of capsule 00:00: 00:00 mouth in [place] 00 :00 [facility] and 1 capsule in the evening. DULoxetine 2022-0 3- No [id number] 60mg Take 1 [facility] 60 mg 8-15 10-11 capsule by ity of capsule 00:00: 00:00 mouth in [place] 00 :00 [facility] and 1 capsule in the evening. lithium 2022-0 Yes [id number] 900mg Take 2 Uni vers carbonate 8-02 tablets by ity of CR 450 mg 00:00: mouth at [facility] s SR tablet 00 bedtime. Medica l Branch busPIRone 2022-0 Yes [id number] 10mg Take 1 Un cristhian 10 mg 8-02 tablet by ity of tablet 00:00: mouth in [address] and 1 tablet in the evening. lamoTRIgine 2022-0 Yes [id number] 100mg Take 1 [facility] 100 mg 8-02 tablet by ity of tablet 00:00: mouth in [address] and 1 tablet in the evening. lithium 2023-0 Yes [id number] 900mg Take 2 [facility] vers carbonate 8-02 tablets by ity of CR 450 mg 00:00: mouth [place] SR tablet [facility] bus[facility] Yes [id number] 10mg Take 1 Un cristhian 10 mg 8-02 tablet by ity of tablet 00:00: mouth in [place] [address] the [facility] morning Branch and 1 tablet in the evening. lamoTRIgine 2023-0 Yes [id number] 100mg Take 1 [facility] 100 mg 8-02 tablet by ity of tablet 00:00: mouth in [place] [address] the [facility] morning [place] and 1 tablet in the evening. lithium 3-0 Yes [id number] 900mg Take 2 Uni vers carbonate 8-02 tablets by ity of CR 450 mg 00:00: mouth at [place] SR tablet 00 bedtime. [facility] busPIRone 3-0 Yes [id number] 10mg Take 1 Un cristhian 10 mg 8-02 tablet by ity of tablet 00:00: mouth in [place] [address] the [facility] morning [place] and 1 tablet in the evening. lamoTRIgine 3-0 Yes [id number] 100mg Take 1 [facility] 100 mg 8-02 tablet by ity of tablet 00:00: mouth in [place] [address] the [facility] morning [place] and 1 tablet in the evening. lithium 3-0 Yes [id number] 900mg Take 2 [facility] vers carbonate 8-02 tablets by ity of CR 450 mg 00:00: mouth at [place] SR tablet 00 bedtime. [facility] busPIRone 3-0 Yes [id number] 10mg Take 1 Un cristhian 10 mg 8-02 tablet by ity of tablet 00:00: mouth in [place] [address] the [facility] morning [place] and 1 tablet in the evening. lamoTRIgine 3-0 Yes [id number] 100mg Take 1 [facility] 100 mg 8-02 tablet by ity of tablet 00:00: mouth in [place] [address] the [facility] morning [place] and 1 tablet in the evening. lithium 2023-0 Yes [id number] 900mg Take 2 [facility] vers carbonate 8-02 tablets by ity of CR 450 mg 00:00: mouth at [place] SR tablet 00 bedtime. [facility] [place] lamoTRIgine 2023-0 Yes [id number] 100mg Take 1 [facility] 100 mg 8-02 tablet by ity of tablet 00:00: mouth in [place] [address] the Medical morning Branch and 1 tablet in the evening. lithium 2023-0 Yes [id number] 900mg Take 2 [facility] vers carbonate 8-02 tablets by ity of CR 450 mg 00:00: mouth at [place] SR tablet 00 bedtime. [facility] lamoTRIgine 3-0 Yes [id number] 100mg Take 1 [facility] 100 mg 8-02 tablet by ity of tablet 00:00: mouth in [place] [address] the [facility] morning [place] and 1 tablet in the evening. lithium 3-0 Yes [id number] 900mg Take 2 [facility] vers carbonate 8-02 tablets by ity of CR 450 mg 00:00: mouth at [place] SR tablet 00 bedtime. [facility] lamoTRIgine 3-0 Yes [id number] 100mg Take 1 [facility] 100 mg 8-02 tablet by ity of tablet 00:00: mouth in [place] [address] the [facility] morning [place] and 1 tablet in the evening. lithium 3-0 Yes [id number] 900mg Take 2 [facility] vers carbonate 8-02 tablets by ity of CR 450 mg 00:00: mouth at [place] SR tablet 00 bedtime. [facility] lamoTRIgine 3-0 Yes [id number] 100mg Take 1 [facility] 100 mg 8-02 tablet by ity of tablet 00:00: mouth in [place] [address] the [facility] and 1 tablet in the evening. lithium 3-0 Yes [id number] 900mg Take 2 [facility] vers carbonate 8-02 tablets by ity of CR 450 mg 00:00: mouth at [place] SR tablet 00 bedtime. [facility] lamoTRIgine 3-0 Yes [id number] 100mg Take 1 [facility] 100 mg 8-02 tablet by ity of tablet 00:00: mouth in [address] morning [place] and 1 tablet in the evening. lithium 2023-0 Yes [id number] 900mg Take 2 [facility] vers carbonate 8-02 tablets by ity of CR 450 mg 00:00: mouth at [place] SR tablet 00 bedtime. [facility] lamoTRIgine 3-0 Yes [id number] 100mg Take 1 [facility] 100 mg 8-02 tablet by ity of tablet 00:00: mouth in [address] morning [place] and 1 tablet in the evening. lithium 2023-0 Yes [id number] 900mg Take 2 [facility] vers carbonate 8-02 tablets by ity of CR 450 mg 00:00: mouth at [place] SR tablet 00 bedtime. Medica l Branch lamoTRIgine 3-0 Yes [id number] 100mg Take 1 [facility] 100 mg 8-02 tablet by ity of tablet 00:00: mouth in [place] [address] the [facility] morning [place] and 1 tablet in the evening. lithium 2023-0 Yes [id number] 900mg Take 2 [facility] vers carbonate 8-02 tablets by ity of CR 450 mg 00:00: mouth at [place] SR tablet 00 bedtime. Medica l Branch lamoTRIgine 3-0 Yes [id number] 100mg Take 1 [facility] 100 mg 8-02 tablet by ity of tablet 00:00: mouth in [place] [address] the [facility] morning [place] and 1 tablet in the evening. lithium 3-0 Yes [id number] 900mg Take 2 [facility] vers carbonate 8-02 tablets by ity of CR 450 mg 00:00: mouth at [place] SR tablet 00 bedtime. Medica l Branch lamoTRIgine 2022-0 Yes [id number] 100mg Take 1 [facility] 100 mg 8-02 tablet by ity of tablet 00:00: mouth in [address] morning [place] and 1 tablet in the evening. lithium 3-0 Yes [id number] 900mg Take 2 [facility] vers carbonate 8-02 tablets by ity of CR 450 mg 00:00: mouth at [place] SR tablet 00 bedtime. Medica l Branch lamoTRIgine 3-0 Yes [id number] 100mg Take 1 [facility] 100 mg 8-02 tablet by ity of tablet 00:00: mouth in [place] [address] the [facility] morning [place] and 1 tablet in the evening. lithium 3-0 Yes [id number] 900mg Take 2 [facility] vers carbonate 8-02 tablets by ity of CR 450 mg 00:00: mouth at [place] SR tablet 00 bedtime. Medica l Branch lamoTRIgine 3-0 Yes [id number] 100mg Take 1 [facility] 100 mg 8-02 tablet by ity of tablet 00:00: mouth in [place] [address] the [facility] morning [place] and 1 tablet in the evening. lithium 2023-0 Yes [id number] 900mg Take 2 [facility] vers carbonate 8-02 tablets by ity of CR 450 mg 00:00: mouth at [place] SR tablet 00 bedtime. Medica l Branch lamoTRIgine 3-0 Yes [id number] 100mg Take 1 [facility] 100 mg 8-02 tablet by ity of tablet 00:00: mouth in [place] 00 the Medical morning Branch and 1 tablet in the evening. lithium 2023-0 Yes [id number] 900mg Take 2 [facility] vers carbonate 8-02 tablets by ity of CR 450 mg 00:00: mouth at [place] SR tablet 00 bedtime. [facility] lamoTRIgine 3-0 Yes [id number] 100mg Take 1 [facility] 100 mg 8-02 tablet by ity of tablet 00:00: mouth in [place] [address] the [facility] morning [place] and 1 tablet in the evening. lithium 2023-0 Yes [id number] 900mg Take 2 [facility] vers carbonate 8-02 tablets by ity of CR 450 mg 00:00: mouth at [place] SR tablet 00 bedtime. [facility] lamoTRIgine 3-0 Yes [id number] 100mg Take 1 [facility] 100 mg 8-02 tablet by ity of tablet 00:00: mouth in [place] [address] the [facility] morning [place] and 1 tablet in the evening. lithium 3-0 Yes [id number] 900mg Take 2 Uni vers carbonate 8-02 tablets by ity of CR 450 mg 00:00: [place] tablet 00 bedtime. [facility] lamoTRIgine 3-0 Yes [id number] 100mg Take 1 [facility] 100 mg 8-02 tablet by ity of tablet 00:00: mouth in [place] [address] the [facility] morning [place] and 1 tablet in the evening. lithium 3-0 Yes [id number] 900mg Take 2 Uni vers carbonate 8-02 tablets by ity of CR 450 mg 00:00: [place] tablet 00 bedtime. [facility] lamoTRIgine 3-0 Yes [id number] 100mg Take 1 [facility] 100 mg 8-02 tablet by ity of tablet 00:00: mouth in [place] [address] the [facility] morning [place] and 1 tablet in the evening. lithium 2023-0 Yes [id number] 900mg Take 2 Uni vers carbonate 8-02 tablets by ity of CR 450 mg 00:00: [place] tablet 00 bedtime. [facility] lamoTRIgine 3-0 Yes [id number] 100mg Take 1 [facility] 100 mg 8-02 tablet by ity of tablet 00:00: mouth in [place] 00 the Medical morning Branch and 1 tablet in the evening. lithium 2023-0 Yes [id number] 900mg Take 2 Uni vers carbonate 8-02 tablets by ity of CR 450 mg 00:00: [place] 00 [facility]-0 Yes [id number] 100mg Take 1 [facility] 100 mg 8-02 tablet by ity of tablet 00:00: mouth in [place] 00 the Medical morning Branch and 1 tablet in the evening. lithium 3-0 Yes [id number] 900mg Take 2 Uni vers carbonate 8-02 tablets by ity of CR 450 mg 00:00: [place] tablet 00 bedtime. [facility] lamoTRIg[facility] 3-0 Yes [id number] 100mg Take 1 [facility] 100 mg 8-02 tablet by ity of tablet 00:00: mouth in [place] [address] the Medical morning Branch and 1 tablet in the evening. lithium 3-0 Yes [id number] 900mg Take 2 Uni vers carbonate 8-02 tablets by ity of CR 450 mg 00:00: [place] tablet 00 bedtime. [facility] [place] lamoTRIgine 3-0 Yes [id number] 100mg Take 1 [facility] 100 mg 8-02 tablet by ity of tablet 00:00: mouth in [place] [address] the [facility] morning [place] and 1 tablet in the evening. lithium 3-0 Yes [id number] 900mg Take 2 Uni vers carbonate 8-02 tablets by ity of CR 450 mg 00:00: [place] tablet 00 bedtime. [facility] [place] lamoTRIgine 3-0 Yes [id number] 100mg Take 1 [facility] 100 mg 8-02 tablet by ity of tablet 00:00: mouth in [place] [address] the [facility] morning Branch and 1 tablet in the evening. lithium 3-0 Yes [id number] 900mg Take 2 Uni vers carbonate 8-02 tablets by ity of CR 450 mg 00:00: [place] tablet 00 bed[facility]. [facility] lamoTRIgine 3-0 Yes [id number] 100mg Take 1 [facility] 100 mg 8-02 tablet by ity of tablet 00:00: mouth in [place] [address] the [facility] morning [place] and 1 tablet in the evening. lithium 2023-0 Yes [id number] 900mg Take 2 Uni vers carbonate 8-02 tablets by ity of CR 450 mg 00:00: [place] tablet 00 bedtime. Medica [facility] Branch lamoTRIgine 3-0 Yes [id number] 100mg Take 1 [facility] 100 mg 8-02 tablet by ity of tablet 00:00: mouth in [place] [address] the [facility] morning Branch and 1 tablet in the evening. lithium 2023-0 Yes [id number] 900mg Take 2 Uni vers carbonate 8-02 tablets by ity of CR 450 mg 00:00: [place] tablet 00 bedtime. Med[facility] Branch lamoTRIgine 3-0 Yes [id number] 100mg Take 1 [facility] 100 mg 8-02 tablet by ity of tablet 00:00: mouth in [place] [address] the [facility] morning [place] and 1 tablet in the evening. lithium 2023-0 Yes [id number] 900mg Take 2 [facility] vers carbonate 8-02 tablets by ity of CR 450 mg 00:00: [place] tablet 00 bedtime. [facility] lamoTRIgine 3-0 Yes [id number] 100mg Take 1 [facility] 100 mg 8-02 tablet by ity of tablet 00:00: mouth in [place] [address] the [facility] morning [place] and 1 tablet in the evening. lithium 2023-0 Yes [id number] 900mg Take 2 Uni vers carbonate 8-02 tablets by ity of CR 450 mg 00:00: [place] tablet 00 bedtime. Medica [facility] Branch lamoTRIgine 3-0 Yes [id number] 100mg Take 1 [facility] 100 mg 8-02 tablet by ity of tablet 00:00: mouth in [place] [address] the [facility] morning [place] and 1 tablet in the evening. lithium 2023-0 Yes [id number] 900mg Take 2 Uni vers carbonate 8-02 tablets by ity of CR 450 mg 00:00: [place] tablet 00 bedtime. Medica l Branch lamoTRIgine 3-0 Yes [id number] 100mg Take 1 [facility] 100 mg 8-02 tablet by ity of tablet 00:00: mouth in [address] morning [place] and 1 tablet in the evening. lithium 2023-0 Yes [id number] 900mg Take 2 Uni vers carbonate 8-02 tablets by ity of CR 450 mg 00:00: mouth [place] tablet 00 bedtime. Medica l Branch lamoTRIgine 3-0 Yes [id number] 100mg Take 1 [facility] 100 mg 8-02 tablet by ity of tablet 00:00: mouth in [place] 00 the Medical morning Branch and 1 tablet in the evening. lithium 2023-0 Yes [id number] 900mg Take 2 Uni vers carbonate 8-02 tablets by ity of CR 450 mg 00:00: [place] tablet 00 bedtime. [facility] [place] lamoTRIgine 2023-0 Yes [id number] 100mg Take 1 [facility] 100 mg 8-02 tablet by ity of tablet 00:00: mouth in [place] [address] the [facility] morning [place] and 1 tablet in the evening. lithium 2023-0 Yes [id number] 900mg Take 2 Uni vers carbonate 8-02 tablets by ity of CR 450 mg 00:00: [place] tablet 00 bedtime. [facility] [place] lamoTRIgine 3-0 Yes [id number] 100mg Take 1 [facility] 100 mg 8-02 tablet by ity of tablet 00:00: mouth in [place] [address] the [facility] morning [place] and 1 tablet in the evening. lithium 2023-0 Yes [id number] 900mg Take 2 Uni vers carbonate 8-02 tablets by ity of CR 450 mg 00:00: [place] tablet 00 bedtime. [facility] [place] lamoTRIgine 3-0 Yes [id number] 100mg Take 1 [facility] 100 mg 8-02 tablet by ity of tablet 00:00: mouth in [place] [address] the [facility] morning [place] and 1 tablet in the evening. lithium 2023-0 Yes [id number] 900mg Take 2 Uni vers carbonate 8-02 tablets by ity of CR 450 mg 00:00: [place] tablet 00 bedtime. [facility] [place] lamoTRIgine 2023-0 Yes [id number] 100mg Take 1 [facility] 100 mg 8-02 tablet by ity of tablet 00:00: mouth in [place] [address] the [facility] morning [place] and 1 tablet in the evening. lamoTRIgine 2023-0 Yes [id number] 100mg Take 1 [facility] 100 mg 8-02 tablet by ity of tablet 00:00: mouth in [place] [address] the [facility] morning [place] and 1 tablet in the evening. lamoTRIgine 2023-0 Yes [id number] 100mg Take 1 [facility] 100 mg 8-02 tablet by ity of tablet 00:00: mouth in [address] morning [place] and 1 tablet in the evening. lamoTRIgine 2023-0 Yes [id number] 100mg Take 1 [facility] 100 mg 8-02 tablet by ity of tablet 00:00: mouth in [place] 00 the Medical morning Branch and 1 tablet in the evening. lamoTRIgine 2023-0 Yes [id number] 100mg Take 1 [facility] 100 mg 8-02 tablet by ity of tablet 00:00: mouth in [place] 00 the Medical morning Branch and 1 tablet in the evening. lamoTRIgine 2023-0 Yes [id number] 100mg Take 1 [facility] 100 mg 8-02 tablet by ity of tablet 00:00: mouth in [place] 00 the Medical morning Branch and 1 tablet in the evening. lamoTRIgine 2023-0 Yes [id number] 100mg Take 1 [facility] 100 mg 8-02 tablet by ity of tablet 00:00: mouth in [place] [address] the Medical morning Branch and 1 tablet in the evening. lamoTRIgine 2023-0 Yes [id number] 100mg Take 1 [facility] 100 mg 8-02 tablet by ity of tablet 00:00: mouth in [place] 00 the Medical morning Branch and 1 tablet in the evening. lamoTRIgine 2023-0 Yes [id number] 100mg Take 1 [facility] 100 mg 8-02 tablet by ity of tablet 00:00: mouth in [place] 00 the Medical morning Branch and 1 tablet in the evening. lamoTRIgine 2023-0 Yes [id number] 100mg Take 1 [facility] 100 mg 8-02 tablet by ity of tablet 00:00: mouth in [place] [address] the Medical morning Branch and 1 tablet in the evening. lamoTRIgine 2023-0 Yes [id number] 100mg Take 1 [facility] 100 mg 8-02 tablet by ity of tablet 00:00: mouth in [place] 00 the Medical morning Branch and 1 tablet in the evening. lamoTRIgine 2023-0 2023- No [id number] 100mg Take 1 [facility] 100 mg 8-02 11-08 tablet by ity of tablet 00:00: 00:00 mouth in [place] 00 :00 the Medical morning Branch and 1 tablet in the evening. lamoTRIgine 2023-0 2023- No [id number] 100mg Take 1 [facility] 100 mg 8-02 11-08 tablet by ity of tablet 00:00: 00:00 mouth in [place] 00 :00 the Medical morning Branch and 1 tablet in the evening. lamoTRIgine 2023-0 2023- No [id number] 100mg Take 1 [facility] 100 mg -03 25- tablet by ity of tablet 00:00: 00:00 mouth in [place] 00 :00 the Medical morning Branch and 1 tablet in the evening. lamoTRIgine 2022-2022- No [id number] 100mg Take 1 [facility] 100 mg -12-20 tablet by ity of tablet 00:00: 00:00 mouth in [place] 00 :00 the Medical morning Branch and 1 tablet in the evening. lamoTRIgine 2022-2022- No [id number] 100mg Take 1 [facility] 100 mg -12-20 tablet by ity of tablet 00:00: 00:00 mouth in [place] 00 :00 the Medical morning Branch and 1 tablet in the evening. lithium 2022- No [id number] 900mg Take 2 Un cristhian carbonate 8-02 10-17 tablets by ity of CR 450 mg 00:00: 00:00 mouth at [place] SR tablet 00 :00 bedtime. Medica l Branch lithium 2022- No [id number] 900mg Take 2 Un cristhian carbonate 8-02 10-17 tablets by ity of CR 450 mg 00:00: 00:00 mouth at [place] SR tablet 00 :00 bedtime. Medica l Branch lithium 2022- No [id number] 900mg Take 2 Un cristhian carbonate 8-02 10-17 tablets by ity of CR 450 mg 00:00: 00:00 mouth at [place] SR tablet 00 :00 bedtime. Medica l Branch lithium 2022- No [id number] 900mg Take 2 Un cristhian carbonate 8-02 10-17 tablets by ity of CR 450 mg 00:00: 00:00 mouth at [place] SR tablet 00 :00 bedtime. Medica l Branch lithium 2022-0 2022- No [id number] 900mg Take 2 Un cristhian carbonate 8-02 10-17 tablets by ity of CR 450 mg 00:00: 00:00 mouth at [place] SR tablet 00 :00 bedtime. Medica l Branch lithium 2022- No [id number] 900mg Take 2 Un cristhian carbonate 8-02 10-17 tablets by ity of CR 450 mg 00:00: 00:00 mouth at [place] SR tablet 00 :00 bedtime. Medica l Branch lithium 2022-2022- No [id number] 900mg Take 2 Un cristhian carbonate 8-02 10-17 tablets by ity of CR 450 mg 00:00: 00:00 mouth at [place] SR tablet 00 :00 bedtime. Medica l Branch lithium 2022-0 2022- No [id number] 900mg Take 2 Un cristhian carbonate 8-02 10-17 tablets by ity of CR 450 mg 00:00: 00:00 mouth at [place] SR tablet 00 :00 bedtime. Medica l Branch busPIRone 2022-2022- No [id number] 10mg Take 1 U nivers 10 mg 8- 08-23 tablet by ity of tablet 00:00: 00:00 mouth in [place] 00 :00 the Medical morning Branch and 1 tablet in the evening. busPIRone 2022-2022- No [id number] 10mg Take 1 U nivers 10 mg 8- 08-23 tablet by ity of tablet 00:00: 00:00 mouth in [place] 00 :00 the Medical morning Branch and 1 tablet in the evening. busPIRone 2022-0 2022- No [id number] 10mg Take 1 U nivers 10 mg 8-03 22-23 tablet by ity of tablet 00:00: 00:00 mouth in [place] 00 :00 the Medical morning Branch and 1 tablet in the evening. busPIRone 2022-2022- No [id number] 10mg Take 1 U nivers 10 mg 8- 08-23 tablet by ity of tablet 00:00: 00:00 mouth in [place] 00 :00 the Medical morning Branch and 1 tablet in the evening. busPIRone 2022-2022- No [id number] 10mg Take 1 U nivers 10 mg 8- 08-23 tablet by ity of tablet 00:00: 00:00 mouth in [place] 00 :00 the Medical morning Branch and 1 tablet in the evening. clonazePAM 3-0 Yes [id number] Take 1 U nivers 1 mg tablet 7-19 tablet by ity of 00:00: mouth [place] 00 twice Medical daily as Branch needed for anxiety. clonazePAM 3-0 Yes [id number] Take 1 U nivers 1 mg tablet 7-19 tablet by ity of 00:00: mouth [place] 00 twice Medical daily as Branch needed for anxiety. clonazePAM 3-0 Yes [id number] Take 1 U nivers 1 mg tablet 7-19 tablet by ity of 00:00: mouth [place] 00 twice Medical daily as Branch needed for anxiety. clonazePAM 3-0 Yes [id number] Take 1 U nivers 1 mg tablet 7-19 tablet by ity of 00:00: mouth [place] 00 twice Medical daily as Branch needed for anxiety. clonazePAM 3-0 Yes [id number] Take 1 U nivers 1 mg tablet 7-19 tablet by ity of 00:00: mouth [place] 00 twice Medical daily as Branch needed for anxiety. clonazePAM 3-0 Yes [id number] Take 1 U nivers 1 mg tablet 7-19 tablet by ity of 00:00: mouth [place] 00 twice Medical daily as Branch needed for anxiety. clonazePAM 2022-0 2022- No [id number] Take 1 [facility] 1 mg tablet 08-30- tablet by it y of 00:00: 00:00 mouth [place] 00 :00 twice Medical daily as Branch needed for anxiety. clonazePAM 2022-0 2022- No [id number] Take 1 [facility] 1 mg tablet 08-30- tablet by it y of 00:00: 00:00 mouth [place] 00 :00 twice Medical daily as Branch needed for anxiety. clonazePAM 2022-0 2022- No [id number] Take 1 [facility] 1 mg tablet 08-30- tablet by it y of 00:00: 00:00 mouth [place] 00 :00 twice Medical daily as Branch needed for anxiety. clonazePAM 2022-0 2022- No [id number] Take 1 [facility] 1 mg tablet 08-30- tablet by it y of 00:00: 00:00 mouth [place] 00 :00 twice Medical daily as Branch needed for anxiety. clonazePAM 2022-0 2022- No [id number] Take 1 [facility] 1 mg tablet 08-30-14 tablet by it y of 00:00: 00:00 mouth [place] 00 :00 twice Medical daily as Branch needed for anxiety. clonazePAM 2022-0 2022- No [id number] Take 1 [facility] 1 mg tablet 08-30- tablet by it y of 00:00: 00:00 mouth [place] 00 :00 twice Medical daily as Branch needed for anxiety. FUROSEMIDE 3-0 2022- No 40mg Take 40 mg Univers ORAL 6-14 06-14 by mouth ity of 09:33: 00:00 daily. [place] :00 Medical Branch FUROSEMIDE 2022-0 2023- No 40mg Take 40 mg Univers ORAL 6-14 -14 by mouth ity of 09:33: 00:00 daily. [place] :00 Medical Branch FUROSEMIDE 2022-0 2023- No 40mg Take 40 mg Univers ORAL 6-14 -14 by mouth ity of 09:33: 00:00 daily. [place] :00 Medical Branch FUROSEMIDE 2022-0 2023- No 40mg Take 40 mg Univers ORAL 6-14 -14 by mouth ity of 09:33: 00:00 daily. [place] :00 [facility] Branch FUROSEMIDE 2022-0 2023- No 40mg Take 40 mg Univers ORAL 6-14 -14 by mouth ity of 09:33: 00:00 daily. [place] :00 Medical Branch FUROSEMIDE 2022-0 3- No 40mg Take 40 mg Univers ORAL 6-14 -14 by mouth ity of 09:33: 00:00 daily. [place] 26 :00 [facility] Branch DULoxetine 2022-0 Yes [id number] 60mg Take 1 U nivers 60 mg 6-14 capsule by ity of capsule 00:00: mouth in [place] [address] the Medical morning Branch and 1 capsule in the evening. lamoTRIgine 2022-0 Yes [id number] 100mg Take 1 [facility] 100 mg 6-14 tablet by ity of tablet 00:00: mouth in [place] [address] the Medical morning Branch and 1 tablet in the evening. lithium 2022-0 Yes [id number] 900mg Take 2 Uni vers carbonate 6-14 tablets by ity of CR 450 mg 00:00: mouth at [facility] s SR tablet 00 bedtime. Medica l Branch traZODone 2022-0 Yes [id number] 50mg Take 1 U nivers 50 mg 6-14 tablet by ity of tablet 00:00: mouth at [place] [address] bedtime. Medical May cut Branch tablet in half. busPIRone 2022-0 Yes [id number] 10mg Take 1 Un cristhian 10 mg 6-14 tablet by ity of tablet 00:00: mouth in [place] [address] the Medical morning Branch and 1 tablet in the evening. DULoxetine 2022-0 Yes [id number] 60mg Take 1 U nivers 60 mg 6-14 capsule by ity of capsule 00:00: mouth in [place] 00 the Medical morning Branch and 1 capsule in the evening. lamoTRIgine 2023-0 Yes [id number] 100mg Take 1 [facility] 100 mg 6-14 tablet by ity of tablet 00:00: mouth in [place] 00 the Medical morning Branch and 1 tablet in the evening. lithium 2023-0 Yes [id number] 900mg Take 2 Uni vers carbonate 6-14 tablets by ity of CR 450 mg 00:00: mouth [place] SR tablet 00 bedtime. Medica l Branch traZODone 3-0 Yes [id number] 50mg Take 1 U nivers 50 mg 6-14 tablet by ity of tablet 00:00: mouth at [place] 00 bedtime. June cut Branch tablet in half. busPIRone 2023-0 Yes [id number] 10mg Take 1 Un cristhian 10 mg 6-14 tablet by ity of tablet 00:00: mouth in [place] [address] the [facility] morning Branch and 1 tablet in the evening. DULoxetine 2023-0 Yes [id number] 60mg Take 1 U nivers 60 mg 6-14 capsule by ity of capsule 00:00: mouth in [place] [address] the [facility] morning Branch and 1 capsule in the evening. lamoTRIgine 2023-0 Yes [id number] 100mg Take 1 [facility] 100 mg 6-14 tablet by ity of tablet 00:00: mouth in [place] [address] the [facility] morning Branch and 1 tablet in the evening. lithium 3-0 Yes [id number] 900mg Take 2 Uni vers carbonate 6-14 tablets by ity of CR 450 mg 00:00: mouth [place] SR tablet 00 bedtime. Medica l Branch traZODone 3-0 Yes [id number] 50mg Take 1 U nivers 50 mg 6-14 tablet by ity of tablet 00:00: mouth at [place] 00 bedtime. June cut Branch tablet in half. busPIRone 2023-0 Yes [id number] 10mg Take 1 Un cristhian 10 mg 6-14 tablet by ity of tablet 00:00: mouth in [place] [address] the [facility] morning Branch and 1 tablet in the evening. DULoxetine 2023-0 Yes [id number] 60mg Take 1 U nivers 60 mg 6-14 capsule by ity of capsule 00:00: mouth in [place] [address] the [facility] morning Branch and 1 capsule in the evening. lamoTRIgine 2023-0 Yes [id number] 100mg Take 1 [facility] 100 mg 6-14 tablet by ity of tablet 00:00: mouth in [place] 00 the Medical morning Branch and 1 tablet in the evening. lithium 3-0 Yes [id number] 900mg Take 2 Uni vers carbonate 6-14 tablets by ity of CR 450 mg 00:00: mouth [place] SR tablet 00 bedtime. Medica l Branch traZODone 3-0 Yes [id number] 50mg Take 1 U nivers 50 mg 6-14 tablet by ity of tablet 00:00: mouth at [place] 00 bedtime. Medical [place] cut Branch tablet in half. busPIRone 3-0 Yes [id number] 10mg Take 1 Un cristhian 10 mg 6-14 tablet by ity of tablet 00:00: mouth in [place] 00 the Medical morning Branch and 1 tablet in the evening. DULoxetine 3-0 Yes [id number] 60mg Take 1 U nivers 60 mg 6-14 capsule by ity of capsule 00:00: mouth in [place] 00 the Medical morning Branch and 1 capsule in the evening. lamoTRIgine 3-0 Yes [id number] 100mg Take 1 [facility] 100 mg 6-14 tablet by ity of tablet 00:00: mouth in [place] 00 the Medical morning Branch and 1 tablet in the evening. lithium 3-0 Yes [id number] 900mg Take 2 Uni vers carbonate 6-14 tablets by ity of CR 450 mg 00:[facility]. Medica l Branch traZODone 3-0 Yes [id number] 50mg Take 1 U nivers 50 mg 6-14 tablet by ity of tablet 00:00: mouth at [place] 00 bedtime. June cut Branch tablet in half. busPIRone 3-0 Yes [id number] 10mg Take 1 Un cristhian 10 mg 6-14 tablet by ity of tablet 00:00: mouth in [place] 00 the Medical morning Branch and 1 tablet in the evening. DULoxetine 3-0 Yes [id number] 60mg Take 1 U nivers 60 mg 6-14 capsule by ity of capsule 00:00: mouth in [place] [address] the Medical morning Branch and 1 capsule in the evening. lamoTRIgine 2023-0 Yes [id number] 100mg Take 1 [facility] 100 mg 6-14 tablet by ity of tablet 00:00: mouth in [place] 00 the Medical morning Branch and 1 tablet in the evening. lithium 2023-0 Yes [id number] 900mg Take 2 Uni vers carbonate 6-14 tablets by ity of CR 450 mg 00:00: mouth [place] SR tablet 00 bedtime. Medica l Branch traZODone 3-0 Yes [id number] 50mg Take 1 U nivers 50 mg 6-14 tablet by ity of tablet 00:00: mouth at [place] 00 bedtime. Medical [place] cut Branch tablet in half. busPIRone 2023-0 Yes [id number] 10mg Take 1 Un cristhian 10 mg 6-14 tablet by ity of tablet 00:00: mouth in [place] 00 the Medical morning Branch and 1 tablet in the evening. DULoxetine 2023-0 Yes [id number] 60mg Take 1 U nivers 60 mg 6-14 capsule by ity of capsule 00:00: mouth in [place] 00 the Medical morning Branch and 1 capsule in the evening. lamoTRIgine 3-0 Yes [id number] 100mg Take 1 [facility] 100 mg 6-14 tablet by ity of tablet 00:00: mouth in [place] 00 the Medical morning Branch and 1 tablet in the evening. lithium 3-0 Yes [id number] 900mg Take 2 Uni vers carbonate 6-14 tablets by ity of CR 450 mg 00:00: mouth [place] SR tablet 00 bedtime. Medica l Branch traZODone 3-0 Yes [id number] 50mg Take 1 U nivers 50 mg 6-14 tablet by ity of tablet 00:00: mouth at [place] 00 bedtime. June cut Branch tablet in half. busPIRone 2023-0 Yes [id number] 10mg Take 1 Un cristhian 10 mg 6-14 tablet by ity of tablet 00:00: mouth in [place] 00 the Medical morning Branch and 1 tablet in the evening. DULoxetine 2023-0 Yes [id number] 60mg Take 1 U nivers 60 mg 6-14 capsule by ity of capsule 00:00: mouth in [place] [address] the Medical morning Branch and 1 capsule in the evening. lamoTRIgine 2023-0 Yes [id number] 100mg Take 1 [facility] 100 mg 6-14 tablet by ity of tablet 00:00: mouth in [place] 00 the Medical morning Branch and 1 tablet in the evening. lithium 2023-0 Yes [id number] 900mg Take 2 Uni vers carbonate 6-14 tablets by ity of CR 450 mg 00:00: mouth [place] SR tablet 00 bedtime. Medica l Branch traZODone 2022-0 Yes [id number] 50mg Take 1 U nivers 50 mg 6-14 tablet by ity of tablet 00:00: mouth at [place] 00 bedtime. Medical [place] cut Branch tablet in half. busPIRone 3-0 Yes [id number] 10mg Take 1 Un cristhian 10 mg 6-14 tablet by ity of tablet 00:00: mouth in [place] 00 the Medical morning Branch and 1 tablet in the evening. DULoxetine 2022-0 Yes [id number] 60mg Take 1 U nivers 60 mg 6-14 capsule by ity of capsule 00:00: mouth in [place] 00 the Medical morning Branch and 1 capsule in the evening. lamoTRIgine 2022-0 Yes [id number] 100mg Take 1 [facility] 100 mg 6-14 tablet by ity of tablet 00:00: mouth in [place] 00 the Medical morning Branch and 1 tablet in the evening. lithium 2022-0 Yes [id number] 900mg Take 2 Uni vers carbonate 6-14 tablets by ity of CR 450 mg 00:00: mouth [place] SR tablet 00 bedtime. Medica l Branch traZODone 2022-0 Yes [id number] 50mg Take 1 U nivers 50 mg 6-14 tablet by ity of tablet 00:00: mouth at [place] 00 bedtime. Medical May cut Branch tablet in half. busPIRone 2022-0 Yes [id number] 10mg Take 1 Un cristhian 10 mg 6-14 tablet by ity of tablet 00:00: mouth in [place] 00 the Medical morning Branch and 1 tablet in the evening. DULoxetine 2022-0 Yes [id number] 60mg Take 1 U nivers 60 mg 6-14 capsule by ity of capsule 00:00: mouth in [place] 00 the Medical morning Branch and 1 capsule in the evening. traZODone 3-0 Yes [id number] 50mg Take 1 U nivers 50 mg 6-14 tablet by ity of tablet 00:00: mouth at [place] 00 bedtime. Medical May cut Branch tablet in half. traZODone 3-0 Yes [id number] 50mg Take 1 U nivers 50 mg 6-14 tablet by ity of tablet 00:00: mouth at [place] [address] bedtime. Medical May cut Branch tablet in half. traZODone 3-0 Yes [id number] 50mg Take 1 U nivers 50 mg 6-14 tablet by ity of tablet 00:00: mouth at [place] [address] bedtime. Medical May cut Branch tablet in half. traZODone 2022-0 Yes [id number] 50mg Take 1 U nivers 50 mg 6-14 tablet by ity of tablet 00:00: mouth at [place] [address] bedtime. Medical May cut Branch tablet in half. traZODone 2022-0 Yes [id number] 50mg Take 1 U nivers 50 mg 6-14 tablet by ity of tablet 00:00: mouth at [place] [address] bedtime. Medical May cut Branch tablet in half. traZODone 2022-0 Yes [id number] 50mg Take 1 U nivers 50 mg 6-14 tablet by ity of tablet 00:00: mouth at [place] [address] bedtime. Medical May cut Branch tablet in half. traZODone 2022-0 Yes [id number] 50mg Take 1 U nivers 50 mg 6-14 tablet by ity of tablet 00:00: mouth at [place] [address] bedtime. Medical May cut Branch tablet in half. traZODone 2022-0 Yes [id number] 50mg Take 1 U nivers 50 mg 6-14 tablet by ity of tablet 00:00: mouth at [place] [address] bedtime. Medical May cut Branch tablet in half. traZODone 2022-0 Yes [id number] 50mg Take 1 U nivers 50 mg 6-14 tablet by ity of tablet 00:00: mouth at [place] [address] bedtime. Medical May cut Branch tablet in half. traZODone 2022-0 Yes [id number] 50mg Take 1 U nivers 50 mg 6-14 tablet by ity of tablet 00:00: mouth at [place] [address] bedtime. Medical May cut Branch tablet in half. traZODone 3-0 Yes [id number] 50mg Take 1 U nivers 50 mg 6-14 tablet by ity of tablet 00:00: mouth at [place] [address] bedtime. Medical May cut Branch tablet in half. traZODone 2022-0 Yes [id number] 50mg Take 1 U nivers 50 mg 6-14 tablet by ity of tablet 00:00: mouth at [place] [address] bedtime. Medical May cut Branch tablet in half. traZODone 3-0 Yes [id number] 50mg Take 1 [facility] nivers 50 mg 6-14 tablet by [facility] tablet 00:00: mouth at [place] [address] bedtime. Medical May cut Branch tablet in half. traZODone 2022-0 Yes [id number] 50mg Take 1 [facility] 50 mg 6-14 tablet by [facility] of tablet 00:00: mouth at [place] [address] bedtime. Medical May cut Branch tablet in half. traZODone 2022-0 Yes [id number] 50mg Take 1 [facility] 50 mg 6-14 tablet by [facility] of tablet 00:00: mouth at [place] [address] bedtime. Medical May cut Branch tablet in half. traZODone 2022-0 Yes [id number] 50mg Take 1 [facility] 50 mg 6-14 tablet by [facility] tablet 00:00: mouth at [place] [address] bedtime. Medical May cut Branch tablet in half. traZODone 2022-0 Yes [id number] 50mg Take 1 [facility] 50 mg 6-14 tablet by [facility] tablet 00:00: mouth at [place] [address] bedtime. Medical May cut Branch tablet in half. traZODone 2022-0 Yes [id number] 50mg Take 1 [facility] 50 mg 6-14 tablet by [facility] tablet 00:00: mouth at [place] [address] bedtime. Medical May cut Branch tablet in half. traZODone 2022-0 Yes [id number] 50mg Take 1 [facility] 50 mg 6-14 tablet by [facility] tablet 00:00: mouth at [place] [address] bedtime. Medical May cut Branch tablet in half. traZODone 2022-0 Yes [id number] 50mg Take 1 [facility] 50 mg 6-14 tablet by [facility] tablet 00:00: mouth at [place] [address] bedtime. Medical May cut Branch tablet in half. traZODone 3-0 Yes [id number] 50mg Take 1 [facility] 50 mg 6-14 tablet by [facility] tablet 00:00: mouth at [place] [address] bedtime. Medical May cut Branch tablet in half. traZODone 2022-0 Yes [id number] 50mg Take 1 [facility] 50 mg 6-14 tablet by [facility] tablet 00:00: mouth at [place] [address] bedtime. Medical May cut Branch tablet in half. traZODone 3-0 Yes [id number] 50mg Take 1 [facility] 50 mg 6-14 tablet by [facility] tablet 00:00: mouth at [place] [address] bedtime. Medical May cut Branch tablet in half. traZODone 2022-0 Yes [id number] 50mg Take 1 [facility] 50 mg 6-14 tablet by [facility] tablet 00:00: mouth at [place] [address] bedtime. Medical May cut Branch tablet in half. traZODone 2022-0 Yes [id number] 50mg Take 1 [facility] 50 mg 6-14 tablet by [facility] tablet 00:00: mouth at [place] [address] bedtime. Medical May cut Branch tablet in half. traZODone 2022-0 Yes [id number] 50mg Take 1 [facility] 50 mg 6-14 tablet by [facility] tablet 00:00: mouth at [place] [address] bedtime. Medical May cut Branch tablet in half. traZODone 2022-0 Yes [id number] 50mg Take 1 [facility] 50 mg 6-14 tablet by [facility] tablet 00:00: mouth at [place] [address] bedtime. Medical May cut Branch tablet in half. traZODone 2022-0 Yes [id number] 50mg Take 1 [facility] 50 mg 6-14 tablet by [facility] tablet 00:00: mouth at [place] [address] bedtime. Medical May cut Branch tablet in half. traZODone 2022-0 Yes [id number] 50mg Take 1 [facility] 50 mg 6-14 tablet by [facility] tablet 00:00: mouth at [place] [address] bedtime. Medical May cut Branch tablet in half. traZODone 2022-0 Yes [id number] 50mg Take 1 [facility] 50 mg 6-14 tablet by [facility] tablet 00:00: mouth at [place] [address] bedtime. Medical May cut Branch tablet in half. traZODone 3-0 Yes [id number] 50mg Take 1 [facility] 50 mg 6-14 tablet by [facility] tablet 00:00: mouth at [place] [address] bedtime. Medical May cut Branch tablet in half. traZODone 2022-0 Yes [id number] 50mg Take 1 [facility] 50 mg 6-14 tablet by [facility] tablet 00:00: mouth at [place] [address] bedtime. Medical May cut Branch tablet in half. traZODone 2022-0 Yes [id number] 50mg Take 1 [facility] 50 mg 6-14 tablet by [facility] tablet 00:00: mouth at [place] [address] bedtime. Medical May cut Branch tablet in half. traZODone 2022-0 Yes [id number] 50mg Take 1 [facility] 50 mg 6-14 tablet by [facility] tablet 00:00: mouth at [place] [address] bedtime. Medical May cut Branch tablet in half. traZODone 2022-0 Yes [id number] 50mg Take 1 [facility] 50 mg 6-14 tablet by [facility] tablet 00:00: mouth at [place] [address] bedtime. Medical May cut Branch tablet in half. traZODone 2022-0 Yes [id number] 50mg Take 1 [facility] 50 mg 6-14 tablet by [facility] tablet 00:00: mouth at [place] [address] bedtime. Medical May cut Branch tablet in half. traZODone 2022-0 Yes [id number] 50mg Take 1 [facility] 50 mg 6-14 tablet by [facility] tablet 00:00: mouth at [place] [address] bedtime. Medical May cut Branch tablet in half. traZODone 2022-0 2022- No [id number] 50mg Take 1 [facility] 50 mg 6-14 10-17 tablet by [facility] tablet 00:00: 00:00 mouth at [place] 00 :00 bedtime. Medical May cut Branch tablet in half. traZODone 2022-0 2022- No [id number] 50mg Take 1 [facility] 50 mg 6-14 10-17 tablet by [facility] tablet 00:00: 00:00 mouth at [place] 00 :00 bedtime. Medical May cut Branch tablet in half. traZODone 2022-0 2022- No [id number] 50mg Take 1 [facility] 50 mg 6-14 10-17 tablet by [facility] tablet 00:00: 00:00 mouth at [place] 00 :00 bedtime. Medical May cut Branch tablet in half. traZODone 2022-0 2022- No [id number] 50mg Take 1 [facility] 50 mg 6-14 10-17 tablet by [facility] tablet 00:00: 00:00 mouth at [place] 00 :00 bedtime. Medical May cut Branch tablet in half. traZODone 2022-0 2022- No [id number] 50mg Take 1 [facility] 50 mg 6-14 10-17 tablet by [facility] tablet 00:00: 00:00 mouth at [place] 00 :00 bedtime. Medical May cut Branch tablet in half. traZODone 2022-0 2022- No [id number] 50mg Take 1 [facility] 50 mg 6-14 10-17 tablet by [facility] tablet 00:00: 00:00 mouth at [place] 00 :00 bedtime. Medical May cut Branch tablet in half. traZODone 2022-0 2022- No [id number] 50mg Take 1 [facility] 50 mg 6-14 10-17 tablet by [facility] tablet 00:00: 00:00 mouth at [place] 00 :00 bedtime. Medical May cut Branch tablet in half. DULoxetine 2022-2022- No [id number] 60mg Take 1 [facility] 60 mg 6-14 08-14 capsule by [facility] of capsule 00:00: 00:00 mouth in [place] 00 :00 the Medical morning Branch and 1 capsule in the evening. DULoxetine 2022-2022- No [id number] 60mg Take 1 [facility] 60 mg 6-14 08-14 capsule by [facility] of capsule 00:00: 00:00 mouth in [place] 00 :00 the Medical morning Branch and 1 capsule in the evening. DULoxetine 2022-2022- No [id number] 60mg Take 1 [facility] 60 mg 6-14 08-14 capsule by [facility] of capsule 00:00: 00:00 mouth in [place] 00 :00 the Medical morning Branch and 1 capsule in the evening. DULoxetine 2022-2022- No [id number] 60mg Take 1 [facility] 60 mg 6-14 08-14 capsule by [facility] of capsule 00:00: 00:00 mouth in [place] 00 :00 the Medical morning Branch and 1 capsule in the evening. DULoxetine 2022-0 2022- No [id number] 60mg Take 1 [facility] 60 mg 6-14 08-14 capsule by [facility] capsule 00:00: 00:00 mouth in [place] 00 :00 the Medical morning Branch and 1 capsule in the evening. DULoxetine 2022-0 2022- No [id number] 60mg Take 1 [facility] 60 mg 6-14 08-14 capsule by [facility] of capsule 00:00: 00:00 mouth in [place] 00 :00 the Medical morning Branch and 1 capsule in the evening. DULoxetine 2023-0 2022- No [id number] 60mg Take 1 [facility] 60 mg 6-14 08-14 capsule by [facility] of capsule 00:00: 00:00 mouth in [place] 00 :00 the Medical morning Branch and 1 capsule in the evening. lamoTRIgine 2023-0 3- No [id number] 100mg Take 1 [facility] 100 mg 6-14 08-02 tablet by [facility] of tablet 00:00: 00:00 mouth in [place] 00 :00 the Medical morning Branch and 1 tablet in the evening. lithium 2022-0 2022- No [id number] 900mg Take 2 Un cristhian carbonate 6-14 08-02 tablets by [facility] of CR 450 mg 00:00: 00:00 mouth at [place] SR tablet 00 :00 bedtime. Medica l Branch busPIRone 2022-0 2022- No [id number] 10mg Take 1 [facility] 10 mg 6-14 08-02 tablet by [facility] of tablet 00:00: 00:00 mouth in [place] 00 :00 the Medical morning Branch and 1 tablet in the evening. lamoTRIgine 2022-0 2022- No [id number] 100mg Take 1 [facility] 100 mg 6-14 08-02 tablet by [facility] of tablet 00:00: 00:00 mouth in [place] 00 :00 the Medical morning Branch and 1 tablet in the evening. lithium 2022-0 2022- No [id number] 900mg Take 2 Un cristhian carbonate 6-14 08-02 tablets by [facility] of CR 450 mg 00:00: 00:00 mouth at [place] SR tablet 00 :00 bedtime. Medica l Branch busPIRone 2022-0 2022- No [id number] 10mg Take 1 [facility] n[facility] 10 mg 6-14 08-02 tablet by [facility] of tablet 00:00: 00:00 mouth in [place] 00 :00 the Medical morning Branch and 1 tablet in the evening. lamoTRIgine 2023-0 2022- No [id number] 100mg Take 1 [facility] 100 mg 6-14 08-02 tablet by [facility] of tablet 00:00: 00:00 mouth in [place] 00 :00 the Medical morning Branch and 1 tablet in the evening. lithium 3-0 No [id number] 900mg Take 2 Un cristhian carbonate 6-14 08-02 tablets by [facility] of CR 450 mg 00:00: 00:00 mouth at [place] SR tablet 00 :00 bedtime. Medica l Branch busPIRone 2022-2022- No [id number] 10mg Take 1 [facility] n[facility] 10 mg 6-14 08-02 tablet by [facility] of tablet 00:00: 00:00 mouth in [place] 00 :00 the Medical morning Branch and 1 tablet in the evening. lamoTRIgine 2022-2022- No [id number] 100mg Take 1 [facility] 100 mg 6-14 08-02 tablet by [facility] of tablet 00:00: 00:00 mouth in [place] 00 :00 the Medical morning Branch and 1 tablet in the evening. lithium 2022-2022- No [id number] 900mg Take 2 Un cristhian carbonate 6-14 08-02 tablets by [facility] of CR 450 mg 00:00: 00:00 mouth at [place] SR tablet 00 :00 bedtime. Medica l Branch busPIRone 2022- No [id number] 10mg Take 1 [facility] nivers 10 mg 6-14 08-02 tablet by [facility] of tablet 00:00: 00:00 mouth in [place] 00 :00 the Medical morning Branch and 1 tablet in the evening. lamoTRIgine 2022-2022- No [id number] 100mg Take 1 [facility] 100 mg 6-14 08-02 tablet by [facility] of tablet 00:00: 00:00 mouth in [place] 00 :00 the Medical morning Branch and 1 tablet in the evening. lithium 2022-2022- No [id number] 900mg Take 2 Un cristhian carbonate 6-14 08-02 tablets by [facility] of CR 450 mg 00:00: 00:00 mouth at [place] SR tablet 00 :00 bedtime. Medica l Branch busPIRone 2022-2022- No [id number] 10mg Take 1 [facility] nivers 10 mg 6-14 08-02 tablet by [facility] of tablet 00:00: 00:00 mouth in [place] 00 :00 the Medical morning Branch and 1 tablet in the evening. lamoTRIgine 2022-0 2022- No [id number] 100mg Take 1 [facility] 100 mg 6-14 08-02 tablet by [facility] of tablet 00:00: 00:00 mouth in [place] 00 :00 the Medical morning Branch and 1 tablet in the evening. lithium 2022-0 2022- No [id number] 900mg Take 2 Un cristhian carbonate 6-14 -02 tablets by ity of CR 450 mg 00:00: 00:00 mouth at [facility] as SR tablet 00 :00 bedtime. Medica l Branch busPIRone 2022-0 2022- No [id number] 10mg Take 1 [facility] nivers 10 mg 6-14 - tablet by ity of tablet 00:00: 00:00 mouth in [place] 00 :00 the Medical morning Branch and 1 tablet in the evening. lamoTRIgine 2022-0 Yes [id number] 100mg Take 1 [facility] 100 mg 6-07 tablet by it[facility] of tablet 00:00: mouth in [place] 00 the Medical morning Branch and 1 tablet in the evening. lamoTRIgine 2022-0 Yes [id number] 100mg Take 1 [facility] 100 mg 6-07 tablet by [facility] of tablet 00:00: mouth in [place] 00 the Medical morning Branch and 1 tablet in the evening. lamoTRIgine 2022-0 2022- No [id number] 100mg Take 1 [facility] 100 mg 6-07 06-14 tablet by it[facility] of tablet 00:00: 00:00 mouth in [place] 00 :00 the Medical morning Branch and 1 tablet in the evening. lamoTRIgine 2022-0 2022- No [id number] 100mg Take 1 [facility] 100 mg 6-07 06-14 tablet by [facility] of tablet 00:00: 00:00 mouth in [place] 00 :00 the Medical morning Branch and 1 tablet in the evening. lamoTRIgine 2022-0 2022- No [id number] 100mg Take 1 [facility] 100 mg 6-07 06-14 tablet by [facility] of tablet 00:00: 00:00 mouth in [place] 00 :00 the Medical morning Branch and 1 tablet in the evening. lamoTRIgine 2022-0 3- No [id number] 100mg Take 1 [facility] 100 mg 6-07 06-14 tablet by [facility] of tablet 00:00: 00:00 mouth in [place] 00 :00 the Medical morning Branch and 1 tablet in the evening. clonazePAM 2022-0 Yes [id number] Take 1 [facility] nivers 1 mg tablet 5-24 tablet by ity of 00:00: mouth [place] 00 twice Medical daily as Branch needed for anxiety. clonazePAM 2022-0 Yes [id number] Take 1 [facility] nivers 1 mg tablet 5-24 tablet by ity of 00:00: mouth [place] 00 twice Medical daily as Branch needed for anxiety. clonazePAM 2023-0 Yes [id number] Take 1 [facility] nivers 1 mg tablet 5-24 tablet by ity of 00:00: mouth [place] 00 twice Medical daily as Branch needed for anxiety. clonazePAM 2023-0 Yes [id number] Take 1 [facility] nivers 1 mg tablet 5-24 tablet by ity of 00:00: mouth [place] 00 twice Medical daily as Branch needed for anxiety. clonazePAM 2023-0 Yes [id number] Take 1 [facility] nivers 1 mg tablet 5-24 tablet by ity of 00:00: mouth [place] 00 twice Medical daily as Branch needed for anxiety. clonazePAM 2023-0 Yes [id number] Take 1 [facility] nivers 1 mg tablet 5-24 tablet by ity of 00:00: mouth [place] 00 twice Medical daily as Branch needed for anxiety. clonazePAM 2023-0 Yes [id number] Take 1 [facility] nivers 1 mg tablet 5-24 tablet by ity of 00:00: mouth [place] 00 twice Medical daily as Branch needed for anxiety. clonazePAM 2023-0 Yes [id number] Take 1 [facility] nivers 1 mg tablet 5-24 tablet by ity of 00:00: mouth [place] 00 twice Medical daily as Branch needed for anxiety. clonazePAM 2023-0 3- No [id number] Take 1 [facility] 1 mg tablet 5-24 -18 tablet by it y of 00:00: 00:00 mouth [place] 00 :00 twice Medical daily as Branch needed for anxiety. clonazePAM 2023-0 3- No [id number] Take 1 [facility] 1 mg tablet 5-24 -18 tablet by it y of 00:00: 00:00 mouth [place] 00 :00 twice Medical daily as Branch needed for anxiety. clonazePAM 2023-0 3- No [id number] Take 1 [facility] 1 mg tablet 5-24 -18 tablet by it y of 00:00: 00:00 mouth [place] 00 :00 twice Medical daily as Branch needed for anxiety. clonazePAM 2023-0 3- No [id number] Take 1 [facility] 1 mg tablet 5-24 -18 tablet by it y of 00:00: 00:00 mouth [place] 00 :00 twice Medical daily as Branch needed for anxiety. clonazePAM 2023-0 2023- No [id number] Take 1 [facility] 1 mg tablet 07-05-18 tablet by it y of 00:00: 00:00 mouth [place] 00 :00 twice Medical daily as Branch needed for anxiety. clonazePAM 2022- No [id number] Take 1 [facility] 1 mg tablet 07-05-18 tablet by it y of 00:00: 00:00 mouth [place] 00 :00 twice Medical daily as Branch needed for anxiety. clonazePAM 2022- No [id number] Take 1 [facility] 1 mg tablet 07-05-18 tablet by it y of 00:00: 00:00 mouth [place] 00 :00 twice Medical daily as Branch needed for anxiety. DULoxetine 2022-0 Yes [id number] 60mg Take 1 [facility] nivers 60 mg 5-09 capsule by ity of capsule 00:00: mouth in [place] 00 the Medical morning Branch and 1 capsule in the evening. lithium 2022-0 Yes [id number] 900mg Take 2 [facility] vers carbonate 5-09 tablets by it[facility] of CR 450 mg 00:00: [place] [facility] Yes [id number] 60mg Take 1 [facility] nivers 60 mg 5-09 capsule by ity of capsule 00:00: mouth in [place] the Medical morning Branch and 1 capsule in the evening. lithium 2022-0 Yes [id number] 900mg Take 2 [facility] vers carbonate 5-09 tablets by ity of CR 450 mg 00:00: mouth [place] SR tablet 00 [facility]-0 Yes [id number] 60mg Take 1 [facility] nivers 60 mg 5-09 capsule by ity of capsule 00:00: mouth in [place] 00 the Medical morning Branch and 1 capsule in the evening. lithium 3-0 Yes [id number] 900mg Take 2 [facility] vers carbonate 5-09 tablets by ity of CR 450 mg 00:00: mouth [place] SR tablet 00 [facility] D[facility]-0 Yes [id number] 60mg Take 1 [facility] nivers 60 mg 5-09 capsule by ity of capsule 00:00: mouth in [place] [address] the Medical morning Branch and 1 capsule in the evening. lithium 3-0 Yes [id number] 900mg Take 2 [facility] vers carbonate 5-09 tablets by it[facility] of CR 450 mg 00:00: mouth [place] SR tablet 00 bedtime. Medica l Branch DULoxetine 2022-0 Yes [id number] 60mg Take 1 [facility] nivers 60 mg 5-09 capsule by ity of capsule 00:00: mouth in [place] 00 the Medical morning Branch and 1 capsule in the evening. lithium 2022-0 Yes [id number] 900mg Take 2 [facility] vers carbonate 5-09 tablets by ity of CR 450 mg 00:00: mouth [place] SR tablet 00 bedtime. Medica l Branch DULoxetine 2022-0 2022- No [id number] 60mg Take 1 [facility] 60 mg 5-10 18-14 capsule by ity of capsule 00:00: 00:00 mouth in [place] 00 :00 the Medical morning Branch and 1 capsule in the evening. lithium 2022-0 2022- No [id number] 900mg Take 2 Un cristhian carbonate 5-10 18-14 tablets by ity of CR 450 mg 00:00: 00:00 mouth at [place] as SR tablet 00 :00 bedtime. Medica l Branch DULoxetine 2022-0 2022- No [id number] 60mg Take 1 [facility] 60 mg -10 18-14 capsule by ity of capsule 00:00: 00:00 mouth in [place] 00 :00 the Medical morning Branch and 1 capsule in the evening. lithium 2022-0 2022- No [id number] 900mg Take 2 Un cristhian carbonate 5-10 18-14 tablets by ity of CR 450 mg 00:00: 00:00 mouth at [place] as SR tablet 00 :00 bedtime. Medica l Branch DULoxetine 2022-0 2022- No [id number] 60mg Take 1 [facility] 60 mg 5-10 18-14 capsule by ity of capsule 00:00: 00:00 mouth in [place] 00 :00 the Medical morning Branch and 1 capsule in the evening. lithium 2022-0 2022- No [id number] 900mg Take 2 Un cristhian carbonate 5-10 18-14 tablets by ity of CR 450 mg 00:00: 00:00 mouth at [place] SR tablet 00 :00 bedtime. Medica l Branch DULoxetine 2022-0 2022- No [id number] 60mg Take 1 [facility] 60 mg 5-10 18-14 capsule by ity of capsule 00:00: 00:00 mouth in [place] 00 :00 the Medical morning Branch and 1 capsule in the evening. lithium 2023-0 2023- No [id number] 900mg Take 2 Un cristhian carbonate 5-09 06-14 tablets by ity of CR 450 mg 00:00: 00:00 mouth at [facility] as SR tablet 00 :00 bedtime. Medica l Branch DULoxetine 3-0 Yes [id number] 60mg Take 1 U nivers 60 mg 3-09 capsule by ity of capsule 00:00: mouth in [place] 00 the Medical morning Branch and 1 capsule in the evening. clonazePAM 3-0 Yes [id number] Take 1 [facility] nivers 1 mg tablet 3-09 tablet by ity of 00:00: mouth [place] 00 twice Medical daily as Branch needed for anxiety. lamoTRIgine 3-0 Yes [id number] 100mg Take 1 [facility] 100 mg 3-09 tablet by ity of tablet 00:00: mouth in [place] 00 the Medical morning Branch and 1 tablet in the evening. traZODone 2022-0 Yes [id number] 50mg Take 1 [facility] nivers 50 mg 3-09 tablet by ity of tablet 00:00: mouth at [place] [address] bedtime. Medical May cut Branch tablet in half. lithium 3-0 Yes [id number] 900mg Take 2 [facility] vers carbonate 3-09 tablets by [facility] CR 450 mg 00:[facility] Medica l Branch DULoxetine 3-0 Yes [id number] 60mg Take 1 U nivers 60 mg 3-09 capsule by ity of capsule 00:00: mouth in [place] 00 the Medical morning Branch and 1 capsule in the evening. clonazePAM 3-0 Yes [id number] Take 1 U nivers 1 mg tablet 3-09 tablet by ity of 00:00: mouth [place] 00 twice Medical daily as Branch needed for anxiety. lamoTRIgine 3-0 Yes [id number] 100mg Take 1 [facility] 100 mg 3-09 tablet by ity of tablet 00:00: mouth in [place] 00 the Medical morning Branch and 1 tablet in the evening. traZODone 3-0 Yes [id number] 50mg Take 1 [facility] nivers 50 mg 3-09 tablet by ity of tablet 00:00: mouth at [place] [address] bedtime. Medical May cut Branch tablet in half. lithium 3-0 Yes [id number] 900mg Take 2 [facility] vers carbonate 3-09 tablets by [facility] of CR 450 mg 00:00[facility] bed[facility]. Medica l Branch clonazePAM 2022-0 Yes [id number] Take 1 [facility] nivers 1 mg tablet 3-09 tablet by ity of 00:00: mouth [place] 00 twice Medical daily as Branch needed for anxiety. lamoTRIgine 2022-0 Yes [id number] 100mg Take 1 [facility] 100 mg 3-09 tablet by ity of tablet 00:00: mouth in [place] 00 the Medical morning Branch and 1 tablet in the evening. traZODone 2022-0 Yes [id number] 50mg Take 1 [facility] nivers 50 mg 3-09 tablet by ity of tablet 00:00: mouth at [place] [address] bedtime. Medical May cut Branch tablet in half. clonazePAM 2022-0 Yes [id number] Take 1 [facility] nivers 1 mg tablet 3-09 tablet by ity of 00:00: mouth [place] 00 twice Medical daily as Branch needed for anxiety. lamoTRIgine 2022-0 Yes [id number] 100mg Take 1 [facility] 100 mg 3-09 tablet by ity of tablet 00:00: mouth in [place] 00 the Medical morning Branch and 1 tablet in the evening. traZODone 2022-0 Yes [id number] 50mg Take 1 [facility] nivers 50 mg 3-09 tablet by ity of tablet 00:00: mouth at [place] [address] bedtime. Medical May cut Branch tablet in half. lamoTRIgine 2022-0 Yes [id number] 100mg Take 1 [facility] 100 mg 3-09 tablet by ity of tablet 00:00: mouth in [place] 00 the Medical morning Branch and 1 tablet in the evening. traZODone 2022-0 Yes [id number] 50mg Take 1 [facility] nivers 50 mg 3-09 tablet by ity of tablet 00:00: mouth at [place] [address] bedtime. Medical May cut Branch tablet in half. traZODone 2023-0 Yes [id number] 50mg Take 1 [facility] nivers 50 mg 3-09 tablet by [facility]y of tablet 00:00: mouth at [place] [address] bedtime. Medical May cut Branch tablet in half. traZODone 3-0 Yes [id number] 50mg Take 1 [facility] nivers 50 mg 3-09 tablet by ity of tablet 00:00: mouth at [place] 00 bedtime. Medical May cut Branch tablet in half. traZODone 2023-0 3- No [id number] 50mg Take 1 [facility] 50 mg 04-20- tablet by ity of tablet 00:00: 00:00 mouth at [place] 00 :00 bedtime. Medical May cut Branch tablet in half. traZODone 2023-0 3- No [id number] 50mg Take 1 [facility] 50 mg 04-20- tablet by ity of tablet 00:00: 00:00 mouth at [place] 00 :00 bedtime. Medical May cut Branch tablet in half. traZODone 2022-0 2022- No [id number] 50mg Take 1 [facility] 50 mg 04-20 tablet by ity of tablet 00:00: 00:00 mouth at [place] 00 :00 bedtime. Medical May cut Branch tablet in half. traZODone 2022-0 2022- No [id number] 50mg Take 1 [facility] 50 mg 04-20 tablet by ity of tablet 00:00: 00:00 mouth at [place] 00 :00 bedtime. Medical May cut Branch tablet in half. lamoTRIgine 3-0 3- No [id number] 100mg Take 1 [facility] 100 mg 04-20- tablet by ity of tablet 00:00: 00:00 mouth in [place] 00 :00 the Medical morning Branch and 1 tablet in the evening. lamoTRIgine 2023-0 3- No [id number] 100mg Take 1 [facility] 100 mg 04-20- tablet by ity of tablet 00:00: 00:00 mouth in [place] 00 :00 the Medical morning Branch and 1 tablet in the evening. lamoTRIgine 2023-0 3- No [id number] 100mg Take 1 [facility] 100 mg 04-20-07 tablet by ity of tablet 00:00: 00:00 mouth in [place] 00 :00 the Medical morning Branch and 1 tablet in the evening. lamoTRIgine 2023-0 3- No [id number] 100mg Take 1 [facility] 100 mg 04-20- tablet by ity of tablet 00:00: 00:00 mouth in [place] 00 :00 the Medical morning Branch and 1 tablet in the evening. clonazePAM 3-0 3- No [id number] Take 1 [facility] 1 mg tablet 3-09 05-24 tablet by it y of 00:00: 00:00 mouth [place] 00 :00 twice Medical daily as Branch needed for anxiety. clonazePAM 2022-2022- No [id number] Take 1 [facility] 1 mg tablet 04-20 tablet by it y of 00:00: 00:00 mouth [place] 00 :00 twice Medical daily as Branch needed for anxiety. clonazePAM 2022-2022- No [id number] Take 1 [facility] 1 mg tablet 04-20 tablet by it y of 00:00: 00:00 mouth [place] 00 :00 twice Medical daily as Branch needed for anxiety. clonazePAM 2022- No [id number] Take 1 [facility] 1 mg tablet 04-20 tablet by it y of 00:00: 00:00 mouth [place] 00 :00 twice Medical daily as Branch needed for anxiety. clonazePAM 2022-2022- No [id number] Take 1 [facility] 1 mg tablet 04-20 tablet by it y of 00:00: 00:00 mouth [place] 00 :00 twice Medical daily as Branch needed for anxiety. DULoxetine 2022-2022- No [id number] 60mg Take 1 [facility] 60 mg 04-20-06 capsule by ity of capsule 00:00: 00:00 mouth in [place] 00 :00 the Medical morning Branch and 1 capsule in the evening. lithium 2022-2022- No [id number] 900mg Take 2 Un cristhian carbonate 04-20-06 tablets by ity of CR 450 mg 00:00: 00:00 mouth at [place] SR tablet 00 :00 bedtime. Medica l Branch DULoxetine 2022-2022- No [id number] 60mg Take 1 [facility] 60 mg 04-20 05-06 capsule by ity of capsule 00:00: 00:00 mouth in [place] 00 :00 the Medical morning Branch and 1 capsule in the evening. lithium 2022-2022- No [id number] 900mg Take 2 Un cristhian carbonate 3- 05-06 tablets by ity of CR 450 mg 00:00: 00:00 mouth at [place] SR tablet 00 :00 bedtime. Medica l Branch DULoxetine 2022-2022- No [id number] 60mg Take 1 [facility] 60 mg 3- 05-06 capsule by ity of capsule 00:00: 00:00 mouth in [place] 00 :00 the Medical morning Branch and 1 capsule in the evening. lithium 2023-0 3- No [id number] 900mg Take 2 Un cristhian carbonate 3-09 05-06 tablets by ity of CR 450 mg 00:00: 00:00 mouth at [facility] as SR tablet 00 :00 bedtime. Medica l Branch lamoTRIgine 2023-0 Yes [id number] 100mg Take 1 [facility] 100 mg 1-26 tablet by ity of tablet 00:00: mouth in [place] 00 the Medical morning Branch and 1 tablet in the evening. lamoTRIgine 2023-0 Yes [id number] 100mg Take 1 [facility] 100 mg 1-26 tablet by ity of tablet 00:00: mouth in [place] [address] the Medical morning [place] and 1 tablet in the evening. lamoTRIgine 2023-0 Yes [id number] 100mg Take 1 [facility] 100 mg 1-26 tablet by [facility] of tablet 00:00: mouth in [place] [address] the Medical morning [place] and 1 tablet in the evening. lamoTRIgine 2023-0 Yes [id number] 100mg Take 1 [facility] 100 mg 1-26 tablet by it[facility] of tablet 00:00: mouth in [place] [address] the [facility] and 1 tablet in the evening. lamoTRIgine 2023-0 3- No [id number] 100mg Take 1 [facility] 100 mg 1-26 03-09 tablet by ity of tablet 00:00: 00:00 mouth in [place] 00 :00 the [facility] morning [place] and 1 tablet in the evening. lamoTRIgine 2023-0 2023- No [id number] 100mg Take 1 [facility] 100 mg 1-26 03-09 tablet by ity of tablet 00:00: 00:00 mouth in [place] 00 :00 the [facility] and 1 tablet in the evening. DULoxetine 2023-0 Yes [id number] 60mg Take 1 U nivers 60 mg 1-04 capsule by ity of capsule 00:00: mouth in [place] [address] the [facility] morning [place] and 1 capsule in the evening. lamoTRIgine 2023-0 Yes [id number] 100mg Take 1 [facility] 100 mg 1-04 tablet by ity of tablet 00:00: mouth in [place] [address] the Medical morning [place] and 1 tablet in the evening. traZODone 2023-0 Yes [id number] 50mg Take 1 [facility] nivers 50 mg 1-04 tablet by ity of tablet 00:00: mouth at [place] [address] bedtime. Medical May cut Branch tablet in half. clonazePAM 2023-0 Yes [id number] Take 1 U nivers 1 mg tablet 1-04 tablet by ity of 00:00: mouth [place] 00 twice Medical daily as Branch needed for anxiety. lithium 600 2023-0 Yes [id number] 600mg Take 1 [facility] mg capsule 1-04 capsule by ity of 00:00: mouth in [place] 00 the Medical morning Branch and 1 capsule in the evening. DULoxetine 3-0 Yes [id number] 60mg Take 1 [facility] nivers 60 mg 1-04 capsule by ity of capsule 00:00: mouth in [place] 00 the Medical morning Branch and 1 capsule in the evening. lamoTRIgine 3-0 Yes [id number] 100mg Take 1 [facility] 100 mg 1-04 tablet by it[facility] of tablet 00:00: mouth in [place] 00 the Medical morning Branch and 1 tablet in the evening. traZODone 3-0 Yes [id number] 50mg Take 1 [facility] nivers 50 mg 1-04 tablet by ity of tablet 00:00: mouth at [place] [address] bedtime. Medical May cut Branch tablet in half. clonazePAM 3-0 Yes [id number] Take 1 [facility] nivers 1 mg tablet 1-04 tablet by ity of 00:00: mouth [place] [address] twice Medical daily as Branch needed for anxiety. lithium 3-0 Yes [id number] 900mg Take 2 [facility] vers carbonate 1-04 tablets by ity of CR 450 mg 00:00: mouth at [facility] s SR tablet 00 bedtime. Medica l Branch DULoxetine 3-0 Yes [id number] 60mg Take 1 U nivers 60 mg 1-04 capsule by ity of capsule 00:00: mouth in [place] 00 the Medical morning Branch and 1 capsule in the evening. lamoTRIgine 2023-0 Yes [id number] 100mg Take 1 [facility] 100 mg 1-04 tablet by ity of tablet 00:00: mouth in [place] 00 the Medical morning Branch and 1 tablet in the evening. traZODone 2023-0 Yes [id number] 50mg Take 1 [facility] nivers 50 mg 1-04 tablet by ity of tablet 00:00: mouth at [place] [address] bedtime. Medical May cut Branch tablet in half. clonazePAM 2023-0 Yes [id number] Take 1 [facility] nivers 1 mg tablet 1-04 tablet by ity of 00:00: mouth [place] 00 twice Medical daily as Branch needed for anxiety. lithium 3-0 Yes [id number] 900mg Take 2 [facility] vers carbonate 1-04 tablets by ity of CR 450 mg 00:00: mouth [place] SR tablet 00 bedtime. Medica l Branch DULoxetine 3-0 Yes [id number] 60mg Take 1 [facility] nivers 60 mg 1-04 capsule by ity of capsule 00:00: mouth in [place] 00 the Medical morning Branch and 1 capsule in the evening. lamoTRIgine 3-0 Yes [id number] 100mg Take 1 [facility] 100 mg 1-04 tablet by ity of tablet 00:00: mouth in [place] 00 the Medical morning Branch and 1 tablet in the evening. traZODone 3-0 Yes [id number] 50mg Take 1 [facility] nivers 50 mg 1-04 tablet by ity of tablet 00:00: mouth at [place] 00 bedtime. Medical May cut Branch tablet in half. clonazePAM 3-0 Yes [id number] Take 1 [facility] nivers 1 mg tablet 1-04 tablet by ity of 00:00: mouth [place] 00 twice Medical daily as Branch needed for anxiety. lithium 3-0 Yes [id number] 900mg Take 2 [facility] vers carbonate 1-04 tablets by ity of CR 450 mg 00:00: mouth at [place] SR tablet 00 bedtime. Medica l Branch DULoxetine 3-0 Yes [id number] 60mg Take 1 [facility] nivers 60 mg 1-04 capsule by ity of capsule 00:00: mouth in [place] 00 the Medical morning Branch and 1 capsule in the evening. lamoTRIgine 3-0 Yes [id number] 100mg Take 1 [facility] 100 mg 1-04 tablet by ity of tablet 00:00: mouth in [place] 00 the Medical morning Branch and 1 tablet in the evening. traZODone 3-0 Yes [id number] 50mg Take 1 [facility] nivers 50 mg 1-04 tablet by ity of tablet 00:00: mouth at [place] 00 bedtime. Medical May cut Branch tablet in half. clonazePAM 2023-0 Yes [id number] Take 1 [facility] nivers 1 mg tablet 1-04 tablet by ity of 00:00: mouth [place] 00 twice Medical daily as Branch needed for anxiety. lithium 3-0 Yes [id number] 900mg Take 2 [facility] vers carbonate 1-04 tablets by ity of CR 450 mg 00:00: mouth [place] SR tablet 00 bedtime. Medica l Branch DULoxetine 2022-0 Yes [id number] 60mg Take 1 [facility] nivers 60 mg 1-04 capsule by ity of capsule 00:00: mouth in [place] 00 the Medical morning Branch and 1 capsule in the evening. lamoTRIgine 2022-0 Yes [id number] 100mg Take 1 [facility] 100 mg 1-04 tablet by ity of tablet 00:00: mouth in [place] 00 the Medical morning Branch and 1 tablet in the evening. traZODone 2022-0 Yes [id number] 50mg Take 1 [facility] nivers 50 mg 1-04 tablet by ity of tablet 00:00: mouth at [place] 00 bedtime. Medical May cut Branch tablet in half. clonazePAM 2022-0 Yes [id number] Take 1 [facility] nivers 1 mg tablet 1-04 tablet by ity of 00:00: mouth [place] 00 twice Medical daily as Branch needed for anxiety. lithium 2022-0 Yes [id number] 900mg Take 2 [facility] vers carbonate 1-04 tablets by ity of CR 450 mg 00:00: mouth at [place] SR tablet 00 bedtime. Medica l Branch DULoxetine 2022-0 Yes [id number] 60mg Take 1 [facility] nivers 60 mg 1-04 capsule by ity of capsule 00:00: mouth in [place] 00 the Medical morning Branch and 1 capsule in the evening. traZODone 2022-0 Yes [id number] 50mg Take 1 [facility] nivers 50 mg 1-04 tablet by ity of tablet 00:00: mouth at [place] 00 bedtime. Medical May cut Branch tablet in half. clonazePAM 2022-0 Yes [id number] Take 1 [facility] nivers 1 mg tablet 1-04 tablet by ity of 00:00: mouth [place] 00 twice Medical daily as Branch needed for anxiety. lithium 2022-0 Yes [id number] 900mg Take 2 [facility] vers carbonate 1-04 tablets by ity of CR 450 mg 00:00: mouth at [place] SR tablet 00 bedtime. Medica l Branch DULoxetine 2022-0 Yes [id number] 60mg Take 1 [facility] nivers 60 mg 1-04 capsule by ity of capsule 00:00: mouth in [place] 00 the Medical morning Branch and 1 capsule in the evening. traZODone 2022-0 Yes [id number] 50mg Take 1 [facility] nivers 50 mg 1-04 tablet by ity of tablet 00:00: mouth at [place] 00 bedtime. Medical May cut Branch tablet in half. clonazePAM 2022-0 Yes [id number] Take 1 [facility] nivers 1 mg tablet 1-04 tablet by ity of 00:00: mouth [place] 00 twice Medical daily as Branch needed for anxiety. lithium 2022-0 Yes [id number] 900mg Take 2 [facility] vers carbonate 1-04 tablets by ity of CR 450 mg 00:00: mouth [place] SR tablet 00 bedtime. Medica l Branch DULoxetine 2022-0 Yes [id number] 60mg Take 1 [facility] nivers 60 mg 1-04 capsule by ity of capsule 00:00: mouth in [place] 00 the Medical morning Branch and 1 capsule in the evening. traZODone 2022-0 Yes [id number] 50mg Take 1 [facility] nivers 50 mg 1-04 tablet by ity of tablet 00:00: mouth at [place] 00 bedtime. Medical May cut Branch tablet in half. clonazePAM 2022-0 Yes [id number] Take 1 [facility] nivers 1 mg tablet 1-04 tablet by ity of 00:00: mouth [place] 00 twice Medical daily as Branch needed for anxiety. lithium 2022-0 Yes [id number] 900mg Take 2 [facility] vers carbonate 1-04 tablets by ity of CR 450 mg 00:00: mouth [place] SR tablet 00 bedtime. Medica l Branch DULoxetine 2022-0 Yes [id number] 60mg Take 1 [facility] nivers 60 mg 1-04 capsule by ity of capsule 00:00: mouth in [place] 00 the Medical morning Branch and 1 capsule in the evening. traZODone 2022-0 Yes [id number] 50mg Take 1 [facility] nivers 50 mg 1-04 tablet by ity of tablet 00:00: mouth at [place] 00 bedtime. Medical May cut Branch tablet in half. clonazePAM 2022-0 Yes [id number] Take 1 [facility] nivers 1 mg tablet 1-04 tablet by ity of 00:00: mouth [place] 00 twice Medical daily as Branch needed for anxiety. lithium 2022-0 Yes [id number] 900mg Take 2 [facility] vers carbonate 1-04 tablets by ity of CR 450 mg 00:00: mouth [place] SR tablet 00 bedtime. Medica l Branch traZODone 2022- No [id number] 50mg Take 1 [facility] 50 mg 02-15- tablet by ity of tablet 00:00: 00:00 mouth at [place] 00 :00 bedtime. Medical May cut Branch tablet in half. lithium 2022- No [id number] 900mg Take 2 [facility]ist[facility] carbonate 02-15-09 tablets by ity of CR 450 mg 00:00: 00:00 mouth at [place] as SR tablet 00 :00 bedtime. Medica l Branch traZODone 2022- No [id number] 50mg Take 1 [facility] 50 mg 02-15- tablet by ity of tablet 00:00: 00:00 mouth at [place] 00 :00 bedtime. Medical May cut Branch tablet in half. lithium No [id number] 900mg Take 2 Un cristh[facility] carbonate 02-15 tablets by ity of CR 450 mg 00:00: 00:00 mouth at [place] as SR tablet 00 :00 bedtime. Medica l Branch DULoxetine 2022- No [id number] 60mg Take 1 [facility] 60 mg 02-15-08 capsule by ity of capsule 00:00: 00:00 mouth in [place] 00 :00 the Medical morning Branch and 1 capsule in the evening. clonazePAM 2022- No [id number] Take 1 [facility] 1 mg tablet 02-15-08 tablet by it y of 00:00: 00:00 mouth [place] 00 :00 twice Medical daily as Branch needed for anxiety. DULoxetine 2022-2022- No [id number] 60mg Take 1 [facility] 60 mg 02-15-08 capsule by ity of capsule 00:00: 00:00 mouth in [place] 00 :00 the Medical morning Branch and 1 capsule in the evening. clonazePAM 2022- No [id number] Take 1 [facility] 1 mg tablet 02-15-08 tablet by it y of 00:00: 00:00 mouth [place] 00 :00 twice Medical daily as Branch needed for anxiety. lamoTRIgine 2022-2022- No [id number] 100mg Take 1 [facility] 100 mg 02-15 tablet by ity of tablet 00:00: 00:00 mouth in [place] 00 :00 the Medical morning Branch and 1 tablet in the evening. lamoTRIgine 2023-0 2023- No [id number] 100mg Take 1 [facility] 100 mg 02-15 tablet by ity of tablet 00:00: 00:00 mouth in [place] 00 :00 the Medical morning Branch and 1 tablet in the evening. lamoTRIgine 2023-0 2023- No [id number] 100mg Take 1 [facility] 100 mg 02-15 tablet by ity of tablet 00:00: 00:00 mouth in [place] 00 :00 the Medical morning Branch and 1 tablet in the evening. lamoTRIgine 2023-0 2023- No [id number] 100mg Take 1 [facility] 100 mg 02-15 tablet by ity of tablet 00:00: 00:00 mouth in [place] 00 :00 the Medical morning Branch and 1 tablet in the evening. lithium 600 2023-0 2023- No [id number] 600mg Take 1 [facility] mg capsule 02-15 capsule by it y of 00:00: 00:00 mouth in [place] 00 :00 the Medical morning Branch and 1 capsule in the evening. lithium 600 2023-0 2023- No [id number] 600mg Take 1 [facility] mg capsule 02-15 capsule by it y of 00:00: 00:00 mouth in [place] 00 :00 the Medical morning Branch and 1 capsule in the evening. lithium 600 2023-0 2023- No [id number] 600mg Take 1 [facility] mg capsule -02-15 capsule by it y of 00:00: 00:00 mouth in [place] 00 :00 the Medical morning Branch and 1 capsule in the evening. lithium 600 2023-0 2023- No [id number] 600mg Take 1 [facility] mg capsule 02-15 capsule by it y of 00:00: 00:00 mouth in [place] 00 :00 the Medical morning Branch and 1 capsule in the evening. lithium 600 2023-0 2023- No [id number] 600mg Take 1 [facility] mg capsule -05 13- capsule by it y of 00:00: 00:00 mouth in [place] 00 :00 the Medical morning Branch and 1 capsule in the evening. lithium 600 2023-0 2023- No [id number] 600mg Take 1 [facility] mg capsule -05 13- capsule by it y of 00:00: 00:00 mouth in [place] 00 :00 the Medical morning Branch and 1 capsule in the evening. lithium 600 3- No [id number] 600mg Take 1 [facility] mg capsule 02-15- capsule by it y of 00:00: 00:00 mouth in [place] 00 :00 the Medical morning Branch and 1 capsule in the evening. lithium 600 0 3- No [id number] 600mg Take 1 [facility] mg capsule 02-15 capsule by it y of 00:00: 00:00 mouth in [place] 00 :00 the Medical morning Branch and 1 capsule in the evening. DULoxetine 2021-02 Yes [id number] 60mg Take 1 [facility] nivers 60 mg 2-28 capsule by ity of capsule 00:00: mouth in [place] 00 the Medical morning Branch and 1 capsule in the evening. DULoxetine 2021-02- No [id number] 60mg Take 1 [facility] 60 mg 2-11 03- capsule by ity of capsule 00:00: 00:00 mouth in [place] 00 :00 the Medical morning Branch and 1 capsule in the evening. DULoxetine 2021-02- No [id number] 60mg Take 1 [facility] 60 mg 2-11 03- capsule by ity of capsule 00:00: 00:00 mouth in [place] 00 :00 the Medical morning Branch and 1 capsule in the evening. DULoxetine 2021-02- No [id number] 60mg Take 1 [facility] 60 mg 2-11 03- capsule by ity of capsule 00:00: 00:00 mouth in [place] 00 :00 the Medical morning Branch and 1 capsule in the evening. DULoxetine 2021-023- No [id number] 60mg Take 1 [facility] 60 mg 2-11 03-04 capsule by ity of capsule 00:00: 00:00 mouth in [place] 00 :00 the Medical morning Branch and 1 capsule in the evening. DULoxetine 2021-023- No [id number] 60mg Take 1 [facility] 60 mg 2-28 -04 capsule by ity of capsule 00:00: 00:00 mouth in [place] 00 :00 the Medical morning Branch and 1 capsule in the evening. DULoxetine 2021-02- No [id number] 60mg Take 1 [facility] 60 mg 2-28 -04 capsule by ity of capsule 00:00: 00:00 mouth in [place] 00 :00 the Medical morning Branch and 1 capsule in the evening. DULoxetine 2021-02- No [id number] 60mg Take 1 [facility] 60 mg 2-28 01-04 capsule by ity of capsule 00:00: 00:00 mouth in [place] 00 :00 the Medical morning Branch and 1 capsule in the evening. DULoxetine 2021-02- No [id number] 60mg Take 1 [facility] 60 mg 2-28 -04 capsule by ity of capsule 00:00: 00:00 mouth in [place] 00 :00 the Medical morning Branch and 1 capsule in the evening. lamoTRIgine 2021-02 Yes [id number] 100mg Take 1 [facility] 100 mg 2-22 tablet by ity of tablet 00:00: mouth in [place] 00 the Medical morning Branch and 1 tablet in the evening. lamoTRIgine 2021-02 Yes [id number] 100mg Take 1 [facility] 100 mg 2-22 tablet by ity of tablet 00:00: mouth in [place] 00 the Medical morning Branch and 1 tablet in the evening. lamoTRIgine 2021-02- No [id number] 100mg Take 1 [facility] 100 mg 2-22 -04 tablet by ity of tablet 00:00: 00:00 mouth in [place] 00 :00 the Medical morning Branch and 1 tablet in the evening. lamoTRIgine 2021-02- No [id number] 100mg Take 1 [facility] 100 mg 2-22 01-04 tablet by ity of tablet 00:00: 00:00 mouth in [place] 00 :00 the Medical morning Branch and 1 tablet in the evening. lamoTRIgine 2021-02- No [id number] 100mg Take 1 [facility] 100 mg 2-22 -04 tablet by ity of tablet 00:00: 00:00 mouth in [place] 00 :00 the Medical morning Branch and 1 tablet in the evening. lamoTRIgine 2021-02- No [id number] 100mg Take 1 [facility] 100 mg 2-22 01-04 tablet by ity of tablet 00:00: 00:00 mouth in [place] 00 :00 the Medical morning Branch and 1 tablet in the evening. lamoTRIgine 2021-023- No [id number] 100mg Take 1 [facility] 100 mg 2-22 01-04 tablet by ity of tablet 00:00: 00:00 mouth in [place] 00 :00 the Medical morning Branch and 1 tablet in the evening. lamoTRIgine 2021-02- No [id number] 100mg Take 1 [facility] 100 mg 2- tablet by ity of tablet 00:00: 00:00 mouth in [place] 00 :00 the Medical morning Branch and 1 tablet in the evening. lamoTRIgine 2021-02- No [id number] 100mg Take 1 [facility] 100 mg 2-05 03- tablet by ity of tablet 00:00: 00:00 mouth in [place] 00 :00 the Medical morning Branch and 1 tablet in the evening. lamoTRIgine 2021-02- No [id number] 100mg Take 1 [facility] 100 mg 2- tablet by ity of tablet 00:00: 00:00 mouth in [place] 00 :00 the Medical morning Branch and 1 tablet in the evening. traZODone 2021-02 Yes [id number] 50mg Take 1 [facility] nivers 50 mg 1-30 tablet by ity of tablet 00:00: mouth at [place] [address] bedtime. Medical May cut Branch tablet in half. lamoTRIgine 2021-02 Yes [id number] 100mg Take 1 [facility] 100 mg 1-30 tablet by ity of tablet 00:00: mouth in [place] 00 the Medical morning Branch and 1 tablet in the evening. traZODone 2021-02 Yes [id number] 50mg Take 1 [facility] nivers 50 mg 1-30 tablet by ity of tablet 00:00: mouth at [place] [address] bedtime. Medical May cut Branch tablet in half. lamoTRIgine 2021-02 Yes [id number] 100mg Take 1 [facility] 100 mg 1-30 tablet by ity of tablet 00:00: mouth in [place] 00 the Medical morning Branch and 1 tablet in the evening. traZODone 2021-02 Yes [id number] 50mg Take 1 [facility] nivers 50 mg 1-30 tablet by ity of tablet 00:00: mouth at [place] 00 bedtime. Medical May cut Branch tablet in half. lamoTRIgine 2021-02 Yes [id number] 100mg Take 1 [facility] 100 mg 1-30 tablet by ity of tablet 00:00: mouth in [place] 00 the Medical morning Branch and 1 tablet in the evening. traZODone 2021-02 Yes [id number] 50mg Take 1 [facility] nivers 50 mg 1-30 tablet by ity of tablet 00:00: mouth at [place] 00 bedtime. Medical May cut Branch tablet in half. traZODone 2021-02 Yes [id number] 50mg Take 1 [facility] nivers 50 mg 1-30 tablet by ity of tablet 00:00: mouth at [place] 00 bedtime. Medical May cut Branch tablet in half. traZODone 2021-02- No [id number] 50mg Take 1 [facility] 50 mg 1-30 01-04 tablet by ity of tablet 00:00: 00:00 mouth at [place] 00 :00 bedtime. Medical May cut Branch tablet in half. traZODone 2021-02- No [id number] 50mg Take 1 [facility] 50 mg 1-30 01-04 tablet by ity of tablet 00:00: 00:00 mouth at [place] 00 :00 bedtime. Medical May cut Branch tablet in half. traZODone 2021-02- No [id number] 50mg Take 1 [facility] 50 mg 1-30 -04 tablet by ity of tablet 00:00: 00:00 mouth at [place] 00 :00 bedtime. Medical May cut Branch tablet in half. traZODone 2021-02- No [id number] 50mg Take 1 [facility] 50 mg 1-30 -04 tablet by ity of tablet 00:00: 00:00 mouth at [place] 00 :00 bedtime. Medical May cut Branch tablet in half. traZODone 2021-02- No [id number] 50mg Take 1 [facility] 50 mg 1-30 -04 tablet by ity of tablet 00:00: 00:00 mouth at [place] 00 :00 bedtime. Medical May cut Branch tablet in half. traZODone 2021-02- No [id number] 50mg Take 1 [facility] 50 mg 1-30 01-04 tablet by ity of tablet 00:00: 00:00 mouth at [place] 00 :00 bedtime. Medical May cut Branch tablet in half. traZODone 2021-02- No [id number] 50mg Take 1 [facility] 50 mg 1-30 01-04 tablet by ity of tablet 00:00: 00:00 mouth at [place] 00 :00 bedtime. Medical May cut Branch tablet in half. traZODone 2021-02- No [id number] 50mg Take 1 [facility] 50 mg 1-30 01- tablet by ity of tablet 00:00: 00:00 mouth at [place] 00 :00 bedtime. Medical May cut Branch tablet in half. lamoTRIgine 2021-02- No [id number] 100mg Take 1 [facility] 100 mg 1-30 12-22 tablet by ity of tablet 00:00: 00:00 mouth in [place] 00 :00 the Medical morning Branch and 1 tablet in the evening. lamoTRIgine 2021-02- No [id number] 100mg Take 1 [facility] 100 mg 1-30 12-22 tablet by ity of tablet 00:00: 00:00 mouth in [place] 00 :00 the Medical morning Branch and 1 tablet in the evening. lamoTRIgine 2021-02- No [id number] 100mg Take 1 [facility] 100 mg 1-30 12-22 tablet by ity of tablet 00:00: 00:00 mouth in [place] 00 :00 the Medical morning Branch and 1 tablet in the evening. lamoTRIgine 2021-02- No [id number] 100mg Take 1 [facility] 100 mg 1-30 12-22 tablet by ity of tablet 00:00: 00:00 mouth in [place] 00 :00 the Medical morning Branch and 1 tablet in the evening. lamoTRIgine 2021-02- No [id number] 100mg Take 1 [facility] 100 mg 1-30 12-22 tablet by ity of tablet 00:00: 00:00 mouth in [place] 00 :00 the Medical morning Branch and 1 tablet in the evening. DULoxetine 2021-02 Yes [id number] 60mg Take 1 [facility] nivers 60 mg 1-28 capsule by ity of capsule 00:00: mouth in [place] 00 the Medical morning Branch and 1 capsule in the evening. clonazePAM 2021-02 Yes [id number] Take 1 [facility] nivers 1 mg tablet 1-28 tablet by ity of 00:00: mouth [place] 00 twice Medical daily as Branch needed for anxiety. DULoxetine 2021-02 Yes [id number] 60mg Take 1 [facility] nivers 60 mg 1-28 capsule by ity of capsule 00:00: mouth in [place] 00 the Medical morning Branch and 1 capsule in the evening. clonazePAM 2021-02 Yes [id number] Take 1 [facility] nivers 1 mg tablet 1-28 tablet by ity of 00:00: mouth [place] 00 twice Medical daily as Branch needed for anxiety. DULoxetine 2021-02 Yes [id number] 60mg Take 1 [facility] nivers 60 mg 1-28 capsule by ity of capsule 00:00: mouth in [place] 00 the Medical morning Branch and 1 capsule in the evening. clonazePAM 2021-02 Yes [id number] Take 1 [facility] nivers 1 mg tablet 1-28 tablet by ity of 00:00: mouth [place] 00 twice Medical daily as Branch needed for anxiety. DULoxetine 2021-02 Yes [id number] 60mg Take 1 [facility] nivers 60 mg 1-28 capsule by ity of capsule 00:00: mouth in [place] 00 the Medical morning Branch and 1 capsule in the evening. clonazePAM 2021-02 Yes [id number] Take 1 [facility] nivers 1 mg tablet 1-28 tablet by ity of 00:00: mouth [place] 00 twice Medical daily as Branch needed for anxiety. DULoxetine 2021-02 Yes [id number] 60mg Take 1 [facility] nivers 60 mg 1-28 capsule by ity of capsule 00:00: mouth in [place] 00 the Medical morning Branch and 1 capsule in the evening. clonazePAM 2021-02 Yes [id number] Take 1 [facility] nivers 1 mg tablet 1-28 tablet by ity of 00:00: mouth [place] 00 twice Medical daily as Branch needed for anxiety. DULoxetine 2021-02 Yes [id number] 60mg Take 1 [facility] nivers 60 mg 1-28 capsule by ity of capsule 00:00: mouth in [place] 00 the Medical morning Branch and 1 capsule in the evening. clonazePAM 2021-02 Yes [id number] Take 1 [facility] nivers 1 mg tablet 1-28 tablet by ity of 00:00: mouth [place] 00 twice Medical daily as Branch needed for anxiety. clonazePAM 2021-02 Yes [id number] Take 1 [facility] nivers 1 mg tablet 1-28 tablet by ity of 00:00: mouth [place] 00 twice Medical daily as Branch needed for anxiety. clonazePAM 2021-02- No [id number] Take 1 [facility] 1 mg tablet 1-28 - tablet by it y of 00:00: 00:00 mouth [place] 00 :00 twice Medical daily as Branch needed for anxiety. clonazePAM 2021-02- No [id number] Take 1 [facility] 1 mg tablet 1-28 - tablet by it y of 00:00: 00:00 mouth [place] 00 :00 twice Medical daily as Branch needed for anxiety. clonazePAM 2021-02- No [id number] Take 1 [facility] 1 mg tablet 03-11 tablet by it y of 00:00: 00:00 mouth [place] 00 :00 twice Medical daily as Branch needed for anxiety. clonazePAM 2021-02 No [id number] Take 1 [facility] 1 mg tablet 03-11 tablet by it y of 00:00: 00:00 mouth [place] 00 :00 twice Medical daily as Branch needed for anxiety. clonazePAM 2021-02- No [id number] Take 1 [facility] 1 mg tablet 03-11 tablet by it y of 00:00: 00:00 mouth [place] 00 :00 twice Medical daily as Branch needed for anxiety. clonazePAM 2021-02- No [id number] Take 1 [facility] 1 mg tablet 03-11 tablet by it y of 00:00: 00:00 mouth [place] 00 :00 twice Medical daily as Branch needed for anxiety. clonazePAM 2021-02- No [id number] Take 1 [facility] 1 mg tablet 03-11 tablet by it y of 00:00: 00:00 mouth [place] 00 :00 twice Medical daily as Branch needed for anxiety. clonazePAM 2021-02- No [id number] Take 1 [facility] 1 mg tablet 03-11 tablet by it y of 00:00: 00:00 mouth [place] 00 :00 twice Medical daily as Branch needed for anxiety. DULoxetine 2021-02- No [id number] 60mg Take 1 [facility] 60 mg -08 02-27 capsule by ity of capsule 00:00: 00:00 mouth in [place] 00 :00 the Medical morning Branch and 1 capsule in the evening. DULoxetine 2021-02- No [id number] 60mg Take 1 [facility] 60 mg - 12-27 capsule by ity of capsule 00:00: 00:00 mouth in [place] 00 :00 the Medical morning Branch and 1 capsule in the evening. DULoxetine 2021-02- No [id number] 60mg Take 1 [facility] 60 mg - 12-27 capsule by ity of capsule 00:00: 00:00 mouth in [place] 00 :00 the Medical morning Branch and 1 capsule in the evening. DULoxetine 2021-02- No [id number] 60mg Take 1 [facility] 60 mg 1-28 12-27 capsule by ity of capsule 00:00: 00:00 mouth in [place] 00 :00 the Medical morning Branch and 1 capsule in the evening. DULoxetine 2021-02- No [id number] 60mg Take 1 [facility] 60 mg 1-28 12-27 capsule by ity of capsule 00:00: 00:00 mouth in [place] 00 :00 the Medical morning Branch and 1 capsule in the evening. traZODone 2021-02 Yes [id number] 50mg Take 1 [facility] n[facility] 50 mg 1-22 tablet by ity of tablet 00:00: mouth at [place] 00 bedtime. Medical May cut Branch tablet in half. traZODone 2021-02 Yes [id number] 50mg Take 1 [facility] n[facility] 50 mg 1-22 tablet by ity of tablet 00:00: mouth at [place] 00 bedtime. Medical May cut Branch tablet in half. traZODone 2021-02 Yes [id number] 50mg Take 1 [facility] n[facility] 50 mg 1-22 tablet by ity of tablet 00:00: mouth at [place] 00 bedtime. Medical May cut Branch tablet in half. traZODone 2021-02- No [id number] 50mg Take 1 [facility] 50 mg 1-22 11-30 tablet by ity of tablet 00:00: 00:00 mouth at [place] 00 :00 bedtime. Medical May cut Branch tablet in half. traZODone 2021-02- No [id number] 50mg Take 1 [facility] 50 mg 1-22 11-30 tablet by [facility] of tablet 00:00: 00:00 mouth at [place] 00 :00 bedtime. [facility] cut [facility] tablet in half. traZODone 2021-02- No [id number] 50mg Take 1 [facility] 50 mg 1-22 11-30 tablet by [facility] of tablet 00:00: 00:00 mouth at [place] 00 :00 bedtime. Medical May cut Branch tablet in half. traZODone 2021-02- No [id number] 50mg Take 1 [facility] 50 mg 1-22 11-30 tablet by [facility] of tablet 00:00: 00:00 mouth at [place] 00 :00 bedtime. Medical May cut Branch tablet in half. traZODone 2021-02- No [id number] 50mg Take 1 [facility] 50 mg 1-22 11-30 tablet by [facility] of tablet 00:00: 00:00 mouth at [place] 00 :00 bedtime. Medical May cut Branch tablet in half. DULoxetine 2021-02 Yes [id number] 60mg Take 1 [facility] 60 mg 0-25 capsule by [facility] of capsule 00:00: mouth in [place] 00 the Medical morning Branch and 1 capsule in the evening. DULoxetine 2021-02 Yes [id number] 60mg Take 1 [facility] 60 mg 0-25 capsule by [facility] of capsule 00:00: mouth in [place] 00 the Medical morning Branch and 1 capsule in the evening. DULoxetine 2021-02 Yes [id number] 60mg Take 1 [facility] 60 mg 0-25 capsule by [facility] of capsule 00:00: mouth in [place] 00 the Medical morning Branch and 1 capsule in the evening. DULoxetine 2021-02- No [id number] 60mg Take 1 [facility] 60 mg 0-25 11-28 capsule by [facility] of capsule 00:00: 00:00 mouth in [place] 00 :00 the Medical morning Branch and 1 capsule in the evening. DULoxetine 2021-02- No [id number] 60mg Take 1 [facility] 60 mg 0-25 11-28 capsule by it[facility] of capsule 00:00: 00:00 mouth in [place] 00 :00 the Medical morning Branch and 1 capsule in the evening. DULoxetine 2021-02- No [id number] 60mg Take 1 [facility] 60 mg 0-25 11-28 capsule by ity of capsule 00:00: 00:00 mouth in [place] 00 :00 the Medical morning Branch and 1 capsule in the evening. DULoxetine 2021-02- No [id number] 60mg Take 1 [facility] 60 mg 0-25 11-28 capsule by ity of capsule 00:00: 00:00 mouth in [place] 00 :00 the Medical morning Branch and 1 capsule in the evening. DULoxetine 2021-02- No [id number] 60mg Take 1 [facility] 60 mg 0-25 11-28 capsule by ity of capsule 00:00: 00:00 mouth in [place] 00 :00 the Medical morning Branch and 1 capsule in the evening. clonazePAM 2021-02 Yes [id number] Take 1 U nivers 1 mg tablet 0-20 tablet by ity of 00:00: mouth [place] 00 twice Medical daily as Branch needed for anxiety. lithium 600 2021-02 Yes [id number] 600mg Take 1 [facility] mg capsule 0-20 capsule by ity of 00:00: mouth in [place] [address] the Medical morning Branch and 1 capsule in the evening. lamoTRIgine 2021-02 Yes [id number] 50mg Take 2 [facility] 25 mg 0-20 tablets by ity of tablet 00:00: mouth in [place] [address] the Medical morning Branch and 2 tablets in the evening. clonazePAM 2021-02 Yes [id number] Take 1 [facility] nivers 1 mg tablet 0-20 tablet by ity of 00:00: mouth [place] [address] twice Medical daily as Branch needed for anxiety. lithium 600 2021-02 Yes [id number] 600mg Take 1 [facility] mg capsule 0-20 capsule by ity of 00:00: mouth in [place] [address] the Medical morning Branch and 1 capsule in the evening. lamoTRIgine 2021-02 Yes [id number] 50mg Take 2 [facility] 25 mg 0-20 tablets by it[facility] of tablet 00:00: mouth in [place] [address] the [facility] morning [place] and 2 tablets in the evening. clonazePAM 2021-02 Yes [id number] Take 1 U nivers 1 mg tablet 0-20 tablet by ity of 00:00: mouth [place] [address] twice Medical daily as Branch needed for anxiety. lithium 600 2021-02 Yes [id number] 600mg Take 1 [facility] mg capsule 0-20 capsule by ity of 00:00: mouth in [place] [address] the [facility] morning Branch and 1 capsule in the evening. lamoTRIgine 2021-02 Yes [id number] 50mg Take 2 [facility] 25 mg 0-20 tablets by ity of tablet 00:00: mouth in [place] [address] the [facility] morning Branch and 2 tablets in the evening. lithium 600 2021-02 Yes [id number] 600mg Take 1 [facility] mg capsule 0-20 capsule by ity of 00:00: mouth in [place] [address] the [facility] morning Branch and 1 capsule in the evening. lamoTRIgine 2021-02 Yes [id number] 50mg Take 2 [facility] 25 mg 0-20 tablets by ity of tablet 00:00: mouth in [place] [address] the [facility] morning Branch and 2 tablets in the evening. lithium 600 2021-02 Yes [id number] 600mg Take 1 [facility] mg capsule 0-20 capsule by ity of 00:00: mouth in [place] [address] the [facility] morning [place] and 1 capsule in the evening. lamoTRIgine 2021-02 Yes [id number] 50mg Take 2 [facility] 25 mg 0-20 tablets by it[facility] of tablet 00:00: mouth in [place] 00 the Medical morning Branch and 2 tablets in the evening. lithium 600 2021-02 Yes [id number] 600mg Take 1 [facility] mg capsule 0-20 capsule by ity of 00:00: mouth in [place] 00 the Medical morning Branch and 1 capsule in the evening. lithium 600 2021-02 Yes [id number] 600mg Take 1 [facility] mg capsule 0-20 capsule by ity of 00:00: mouth in [place] 00 the Medical morning Branch and 1 capsule in the evening. lithium 600 2021-02 Yes [id number] 600mg Take 1 [facility] mg capsule 0-20 capsule by ity of 00:00: mouth in [place] 00 the Medical morning Branch and 1 capsule in the evening. lithium 600 2021-02 Yes [id number] 600mg Take 1 [facility] mg capsule 0-20 capsule by ity of 00:00: mouth in [place] [address] the Medical morning Branch and 1 capsule in the evening. lithium 600 2021-02 Yes [id number] 600mg Take 1 [facility] mg capsule 0-20 capsule by ity of 00:00: mouth in [place] [address] the Medical morning Branch and 1 capsule in the evening. lithium 600 2021-02- No [id number] 600mg Take 1 [facility] mg capsule 0-20 01-04 capsule by it y of 00:00: 00:00 mouth in [place] 00 :00 the Medical morning Branch and 1 capsule in the evening. lithium 600 2021-02- No [id number] 600mg Take 1 [facility] mg capsule 0-20 01-04 capsule by it y of 00:00: 00:00 mouth in [place] 00 :00 the Medical morning Branch and 1 capsule in the evening. lithium 600 2021-02- No [id number] 600mg Take 1 [facility] mg capsule 0-20 01-04 capsule by it y of 00:00: 00:00 mouth in [place] 00 :00 the Medical morning Branch and 1 capsule in the evening. lithium 600 2021-02- No [id number] 600mg Take 1 [facility] mg capsule 0-20 01-04 capsule by it y of 00:00: 00:00 mouth in [place] 00 :00 the Medical morning Branch and 1 capsule in the evening. lithium 600 2021-02- No [id number] 600mg Take 1 [facility] mg capsule 0-20 01-04 capsule by it y of 00:00: 00:00 mouth in [place] 00 :00 the Medical morning Branch and 1 capsule in the evening. lithium 600 2021-02- No [id number] 600mg Take 1 [facility] mg capsule 0-20 01-04 capsule by it y of 00:00: 00:00 mouth in [place] 00 :00 the Medical morning Branch and 1 capsule in the evening. lithium 600 2021-02- No [id number] 600mg Take 1 [facility] mg capsule 0-20 01-04 capsule by it y of 00:00: 00:00 mouth in [place] 00 :00 the Medical morning Branch and 1 capsule in the evening. lithium 600 2021-02- No [id number] 600mg Take 1 [facility] mg capsule 0-20 01-04 capsule by it y of 00:00: 00:00 mouth in [place] 00 :00 the Medical morning Branch and 1 capsule in the evening. lamoTRIgine 2021-02- No [id number] 50mg Take 2 [facility] 25 mg 0-20 11-30 tablets by [facility]y of tablet 00:00: 00:00 mouth in [place] 00 :00 the Medical morning Branch and 2 tablets in the evening. lamoTRIgine 2021-02- No [id number] 50mg Take 2 [facility] 25 mg 0-20 11-30 tablets by ity of tablet 00:00: 00:00 mouth in [place] 00 :00 the Medical morning Branch and 2 tablets in the evening. lamoTRIgine 2021-02- No [id number] 50mg Take 2 [facility] 25 mg 0-20 11-30 tablets by ity of tablet 00:00: 00:00 mouth in [place] 00 :00 the Medical morning Branch and 2 tablets in the evening. lamoTRIgine 2021-02- No [id number] 50mg Take 2 [facility] 25 mg 0-20 11-30 tablets by ity of tablet 00:00: 00:00 mouth in [place] 00 :00 the Medical morning Branch and 2 tablets in the evening. lamoTRIgine 2021-02- No [id number] 50mg Take 2 [facility] 25 mg 0-20 11-30 tablets by ity of tablet 00:00: 00:00 mouth in [place] 00 :00 the Medical morning Branch and 2 tablets in the evening. clonazePAM 2021-02- No [id number] Take 1 [facility] 1 mg tablet 0-20 11-28 tablet by it y of 00:00: 00:00 mouth [place] 00 :00 twice Medical daily as Branch needed for anxiety. clonazePAM 2021-02 No [id number] Take 1 [facility] 1 mg tablet 0-20 11-28 tablet by it y of 00:00: 00:00 mouth [place] 00 :00 twice Medical daily as Branch needed for anxiety. clonazePAM 2021-02 No [id number] Take 1 [facility] 1 mg tablet 0-20 11-28 tablet by it y of 00:00: 00:00 mouth [place] 00 :00 twice Medical daily as Branch needed for anxiety. clonazePAM 2021-02 No [id number] Take 1 [facility] 1 mg tablet 0-20 11-28 tablet by it y of 00:00: 00:00 mouth [place] 00 :00 twice Medical daily as Branch needed for anxiety. clonazePAM 2021-02 No [id number] Take 1 [facility] 1 mg tablet 0-20 -28 tablet by it y of 00:00: 00:00 mouth [place] 00 :00 twice Medical daily as Branch needed for anxiety. lamoTRIgine Yes [id number] 50mg Take 2 [facility] 25 mg 8-26 tablets by ity of tablet 00:00: mouth in [place] 00 the Medical morning Branch and 2 tablets in the evening. lamoTRIgine 2021- No [id number] 50mg Take 2 [facility] 25 mg 8-26 10-19 tablets by ity of tablet 00:00: 00:00 mouth in [place] 00 :00 the Medical morning Branch and 2 tablets in the evening. lamoTRIgine 2021- No [id number] 50mg Take 2 [facility] 25 mg 8-26 10-19 tablets by ity of tablet 00:00: 00:00 mouth in [place] 00 :00 the Medical morning Branch and 2 tablets in the evening. clonazePAM Yes [id number] Take no [facility] 1 mg tablet 8-25 more than ity of 00:00: 1 mg twice [place] 00 daily as Medical needed for Branch anxiety lithium 600 2021-0 Yes [id number] 600mg Take 1 [facility] mg capsule 8-25 capsule by ity of 00:00: mouth in [place] 00 the Medical morning Branch and 1 capsule in the evening. clonazePAM 2021- No [id number] Take no [facility] 1 mg tablet 8-25 10-19 more than it y of 00:00: 00:00 1 mg twice [place] 00 :00 daily as Medical needed for Branch anxiety lithium 600 2021- No [id number] 600mg Take 1 [facility] mg capsule 8-25 10-19 capsule by it y of 00:00: 00:00 mouth in [place] 00 :00 the Medical morning Branch and 1 capsule in the evening. clonazePAM 2021- No [id number] Take no [facility] 1 mg tablet 8-25 10-19 more than it y of 00:00: 00:00 1 mg twice [place] 00 :00 daily as Medical needed for Branch anxiety lithium 600 2021- No [id number] 600mg Take 1 [facility] mg capsule 8-25 10-19 capsule by it y of 00:00: 00:00 mouth in [place] 00 :00 the Medical morning Branch and 1 capsule in the evening. Lamotrigine 2021- No [id number] 50mg Take 1 [facility] 50 mg 8- 08-26 tablet by ity of tablet 00:00: 00:00 mouth in [place] 00 :00 the Medical morning Branch and 1 tablet in the evening. Lamotrigine 2021- No [id number] 50mg Take 1 [facility] 50 mg 8-11 08-25 tablet by ity of tablet 00:00: 00:00 mouth in [place] 00 :00 the Medical morning Branch and 1 tablet in the evening. DULoxetine Yes [id number] 60mg Take 1 [facility] nivers 60 mg 7-27 capsule by ity of capsule 00:00: mouth in [place] 00 the Medical morning Branch and 1 capsule in the evening. DULoxetine 2021- No [id number] 60mg Take 1 [facility] 60 mg 7-27 10-24 capsule by ity of capsule 00:00: 00:00 mouth in [place] 00 :00 the Medical morning Branch and 1 capsule in the evening. DULoxetine 2021- No [id number] 60mg Take 1 [facility] 60 mg 7-27 10-24 capsule by ity of capsule 00:00: 00:00 mouth in [place] 00 :00 the Medical morning Branch and 1 capsule in the evening. DULoxetine 2021- No [id number] 60mg Take 1 [facility] 60 mg 7-27 10-24 capsule by ity of capsule 00:00: 00:00 mouth in [place] 00 :00 the Medical morning Branch and 1 capsule in the evening. Lamotrigine 2021-0 2021- No [id number] 50mg Take 1 [facility] 50 mg 7-18 08-11 tablet by ity of tablet 00:00: 00:00 mouth in [place] 00 :00 the Medical morning Branch and 1 tablet in the evening. lithium 600 2021-0 2021- No [id number] 600mg Take 1 [facility] mg capsule 7-13 08-25 capsule by it y of 00:00: 00:00 mouth in [place] 00 :00 the Medical morning Branch and 1 capsule in the evening. traZODone 2021-0 Yes [id number] 50mg Take 1 [facility] nivers 50 mg 6-28 tablet by ity of tablet 00:00: mouth at [place] [address] bedtime. Medical May cut Branch tablet in half. DULoxetine 0 Yes [id number] 60mg Take 1 [facility] nivers 60 mg 6-28 capsule by ity of capsule 00:00: mouth 2 [place] [address] (two) Medical times Branch daily. traZODone 2021-0 Yes [id number] 50mg Take 1 [facility] nivers 50 mg 6-28 tablet by ity of tablet 00:00: mouth at [place] [address] bedtime. Medical May cut Branch tablet in half. DULoxetine 0 Yes [id number] 60mg Take 1 [facility] nivers 60 mg 6-28 capsule by ity of capsule 00:00: mouth 2 [place] (two) Medical times Branch daily. traZODone 2021-0 Yes [id number] 50mg Take 1 [facility] nivers 50 mg 6-28 tablet by ity of tablet 00:00: mouth at [place] [address] bedtime. Medical May cut Branch tablet in half. DULoxetine 2021-0 Yes [id number] 60mg Take 1 [facility] nivers 60 mg 6-28 capsule by ity of capsule 00:00: mouth 2 [place] (two) Medical times Branch daily. DULoxetine 2021-0 Yes [id number] 60mg Take 1 [facility] nivers 60 mg 6-28 capsule by ity of capsule 00:00: mouth 2 [place] [address] (two) Medical times Branch daily. traZODone 2021-0 2021- No [id number] 50mg Take 1 [facility] 50 mg 6-28 11-21 tablet by ity of tablet 00:00: 00:00 mouth at [place] 00 :00 bedtime. Medical May cut Branch tablet in half. traZODone 2021- No [id number] 50mg Take 1 [facility] 50 mg 6-28 11-21 tablet by ity of tablet 00:00: 00:00 mouth at [place] 00 :00 bedtime. Medical May cut Branch tablet in half. traZODone 2021- No [id number] 50mg Take 1 [facility] 50 mg 6-28 11-21 tablet by ity of tablet 00:00: 00:00 mouth at [place] 00 :00 bedtime. Medical May cut Branch tablet in half. traZODone 2021- No [id number] 50mg Take 1 [facility] 50 mg 6-28 11-21 tablet by ity of tablet 00:00: 00:00 mouth at [place] 00 :00 bedtime. Medical May cut Branch tablet in half. traZODone 2021- No [id number] 50mg Take 1 [facility] 50 mg 6-28 -21 tablet by ity of tablet 00:00: 00:00 mouth at [place] 00 :00 bedtime. Medical May cut Branch tablet in half. clonazePAM 2021- No [id number] Take no [facility] 1 mg tablet - 08-25 more than it y of 00:00: 00:00 1 mg twice [place] 00 :00 daily as Medical needed for Branch anxiety DULoxetine 2021- No [id number] 60mg Take 1 [facility] 60 mg 4-14 -28 capsule by ity of capsule 00:00: 00:00 mouth 2 [place] 00 :00 (two) Medical times Branch daily. traZODone 2021- No [id number] 50mg Take 1 [facility] 50 mg 4-14 06-28 tablet by ity of tablet 00:00: 00:00 mouth at [place] 00 :00 bedtime. Medical May cut Branch tablet in half. DULoxetine 2021- No [id number] 60mg Take 1 [facility] 60 mg 4-14 06-28 capsule by ity of capsule 00:00: 00:00 mouth 2 [place] 00 :00 (two) Medical times Branch daily. traZODone 2021- No [id number] 50mg Take 1 [facility] 50 mg 4-14 06-28 tablet by ity of tablet 00:00: 00:00 mouth at [place] 00 :00 bedtime. Medical [place] cut Branch tablet in half. vitamin 2021-0 Yes [id number] 1000ug Take 1 U nivers B-12 1,000 4-11 tablet by ity of mcg tablet 00:00: mouth [place] 00 daily. Medical Branch cyanocobala 2021-0 Yes [id number] 1000ug 1 mL by [facility] min 1,000 4-11 Intramuscu ity of mcg/mL 00:00: lar route [place] injection 00 weekly. Medical Branch vitamin 2021-0 Yes [id number] 1000ug Take 1 U nivers B-12 1,000 4-11 tablet by ity of mcg tablet 00:00: mouth [place] 00 daily. [facility] Branch cyanocobala 0 Yes [id number] 1000ug 1 mL by [facility] min 1,000 4-11 Intramuscu ity of mcg/mL 00:00: lar route [place] injection 00 weekly. Medical Branch vitamin 2021-0 Yes [id number] 1000ug Take 1 U nivers B-12 1,000 4-11 tablet by ity of mcg tablet 00:00: mouth [place] 00 daily. Medical Branch cyanocobala 2021-0 Yes [id number] 1000ug 1 mL by [facility] min 1,000 4-11 Intramuscu ity of mcg/mL 00:00: lar route [place] injection 00 weekly. [facility] Branch vitamin 2021-0 Yes [id number] 1000ug Take 1 U nivers B-12 1,000 4-11 tablet by ity of mcg tablet 00:00: mouth [place] 00 daily. [facility] Branch cyanocobala 2021-0 Yes [id number] 1000ug 1 mL by [facility] min 1,000 4-11 Intr[facility]cu ity of mcg/mL 00:00: lar route [place] injection 00 weekly. [facility] Branch vitamin 2021-0 Yes [id number] 1000ug Take 1 U nivers B-12 1,000 4-11 tablet by ity of mcg tablet 00:00: mouth [place] 00 daily. [facility] Branch cyanocobala 2021-0 Yes [id number] 1000ug 1 mL by [facility] min 1,000 4-11 Intramuscu ity of mcg/mL 00:00: lar route [place] injection 00 weekly. [facility] vitamin 2021-0 Yes [id number] 1000ug Take 1 U nivers B-12 1,000 4-11 tablet by ity of mcg tablet 00:00: mouth [place] 00 daily. Medical Branch cyanocobala 2021-0 Yes [id number] 1000ug 1 mL by [facility] min 1,000 4-11 Intr[facility] ity of mcg/mL 00:00: lar route [place] injection 00 weekly. Medical Branch vitamin 2021-0 Yes [id number] 1000ug Take 1 U nivers B-12 1,000 4-11 tablet by ity of mcg tablet 00:00: mouth [place] 00 daily. Medical Branch cyanocobala 2021-0 Yes [id number] 1000ug 1 mL by [facility] min 1,000 4-11 Intr[facility] ity of mcg/mL 00:00: lar route [place] injection 00 weekly. Medical Branch vitamin 2021-0 Yes [id number] 1000ug Take 1 U nivers B-12 1,000 4-11 tablet by ity of mcg tablet 00:00: mouth [place] 00 daily. Medical Branch cyanocobala 2021-0 Yes [id number] 1000ug 1 mL by [facility] min 1,000 4-11 [facility] ity of mcg/mL 00:00: lar route [place] injection 00 weekly. Medical Branch vitamin 2021-0 Yes [id number] 1000ug Take 1 U nivers B-12 1,000 4-11 tablet by ity of mcg tablet 00:00: mouth [place] 00 daily. Medical Branch cyanocobala 2021-0 Yes [id number] 1000ug 1 mL by [facility] min 1,000 4-11 Intr[facility] ity of mcg/mL 00:00: lar route [place] injection 00 weekly. Medical Branch vitamin 2021-0 Yes [id number] 1000ug Take 1 U nivers B-12 1,000 4-11 tablet by ity of mcg tablet 00:00: mouth [place] 00 daily. [facility] Branch cyanocobala 2021-0 Yes [id number] 1000ug 1 mL by [facility] min 1,000 4-11 Intr[facility] ity of mcg/mL 00:00: lar route [place] injection 00 weekly. [facility] Branch vitamin 2-0 Yes [id number] 1000ug Take 1 U nivers B-12 1,000 4-11 tablet by ity of mcg tablet 00:00: mouth [place] 00 daily. Medical Branch cyanocobala 2021-0 Yes [id number] 1000ug 1 mL by [facility] min 1,000 4-11 [facility] ity of mcg/mL 00:00: lar route [place] injection 00 weekly. Medical Branch vitamin 2021-0 Yes [id number] 1000ug Take 1 U nivers B-12 1,000 4-11 tablet by ity of mcg tablet 00:00: mouth [place] 00 daily. Medical Branch cyanocobala 2021-0 Yes [id number] 1000ug 1 mL by [facility] min 1,000 4-11 [facility] ity of mcg/mL 00:00: lar route [place] injection 00 weekly. Medical Branch vitamin 2021-0 Yes [id number] 1000ug Take 1 U nivers B-12 1,000 4-11 tablet by ity of mcg tablet 00:00: mouth [place] 00 daily. [facility] Branch cyanocobala 2021-0 Yes [id number] 1000ug 1 mL by [facility] min 1,000 4-11 [facility] ity of mcg/mL 00:00: lar route [place] injection 00 weekly. Medical Branch vitamin 2021-0 Yes [id number] 1000ug Take 1 U nivers B-12 1,000 4-11 tablet by ity of mcg tablet 00:00: mouth [place] 00 daily. Medical Branch cyanocobala 2021-0 Yes [id number] 1000ug 1 mL by [facility] min 1,000 4-11 [facility] ity of mcg/mL 00:00: lar route [place] injection 00 weekly. Medical Branch vitamin 2-0 Yes [id number] 1000ug Take 1 U nivers B-12 1,000 4-11 tablet by ity of mcg tablet 00:00: mouth [place] 00 daily. Medical Branch cyanocobala 2021-0 Yes [id number] 1000ug 1 mL by [facility] min 1,000 4-11 Intr[facility] ity of mcg/mL 00:00: lar route [place] injection 00 weekly. [facility] Branch vitamin 2021-0 Yes [id number] 1000ug Take 1 U nivers B-12 1,000 4-11 tablet by ity of mcg tablet 00:00: mouth [place] 00 daily. [facility] cyanocobala 2021-0 Yes [id number] 1000ug 1 mL by [facility] min 1,000 4-11 Intr[facility] ity of mcg/mL 00:00: lar route [place] injection 00 weekly. Medical Branch vitamin 2021-0 Yes [id number] 1000ug Take 1 U nivers B-12 1,000 4-11 tablet by ity of mcg tablet 00:00: mouth [place] 00 daily. Medical Branch cyanocobala 2021-0 Yes [id number] 1000ug 1 mL by [facility] min 1,000 4-11 [facility] ity of mcg/mL 00:00: lar route [place] injection 00 weekly. Medical Branch vitamin 2021-0 Yes [id number] 1000ug Take 1 U nivers B-12 1,000 4-11 tablet by ity of mcg tablet 00:00: mouth [place] 00 daily. Medical Branch cyanocobala 2021-0 Yes [id number] 1000ug 1 mL by [facility] min 1,000 4-11 [facility] ity of mcg/mL 00:00: lar route [place] injection 00 weekly. Medical Branch vitamin 2021-0 Yes [id number] 1000ug Take 1 U nivers B-12 1,000 4-11 tablet by ity of mcg tablet 00:00: mouth [place] 00 daily. Medical Branch cyanocobala 2021-0 Yes [id number] 1000ug 1 mL by [facility] min 1,000 4-11 Intr[facility] ity of mcg/mL 00:00: lar route [place] injection 00 weekly. Medical Branch vitamin 2021-0 Yes [id number] 1000ug Take 1 U nivers B-12 1,000 4-11 tablet by ity of mcg tablet 00:00: mouth [place] 00 daily. Medical Branch cyanocobala 2021-0 Yes [id number] 1000ug 1 mL by [facility] min 1,000 4-11 Intr[facility] ity of mcg/mL 00:00: lar route [place] injection 00 weekly. Medical Branch vitamin 2021-0 Yes [id number] 1000ug Take 1 U nivers B-12 1,000 4-11 tablet by ity of mcg tablet 00:00: mouth [place] 00 daily. Medical Branch cyanocobala 2021-0 Yes [id number] 1000ug 1 mL by [facility] min 1,000 4-11 Intr[facility] ity of mcg/mL 00:00: lar route [place] injection 00 weekly. Medical Branch vitamin 2-0 Yes [id number] 1000ug Take 1 U nivers B-12 1,000 4-11 tablet by ity of mcg tablet 00:00: mouth [place] 00 daily. Medical Branch cyanocobala 2021-0 Yes [id number] 1000ug 1 mL by [facility] min 1,000 4-11 [facility] ity of mcg/mL 00:00: lar route [place] injection 00 weekly. Medical Branch vitamin 2021-0 Yes [id number] 1000ug Take 1 U nivers B-12 1,000 4-11 tablet by ity of mcg tablet 00:00: mouth [place] 00 daily. Medical Branch cyanocobala 2021-0 Yes [id number] 1000ug 1 mL by [facility] min 1,000 4-11 Intr[facility] ity of mcg/mL 00:00: lar route [place] injection 00 weekly. Medical Branch vitamin 2021-0 Yes [id number] 1000ug Take 1 U nivers B-12 1,000 4-11 tablet by ity of mcg tablet 00:00: mouth [place] 00 daily. Medical Branch cyanocobala 2021-0 Yes [id number] 1000ug 1 mL by [facility] min 1,000 4-11 Intr[facility] ity of mcg/mL 00:00: lar route [place] injection 00 weekly. Medical Branch vitamin 2021-0 Yes [id number] 1000ug Take 1 U nivers B-12 1,000 4-11 tablet by ity of mcg tablet 00:00: mouth [place] 00 daily. Medical Branch cyanocobala 2021-0 Yes [id number] 1000ug 1 mL by [facility] min 1,000 4-11 Intr[facility] ity of mcg/mL 00:00: lar route [place] injection 00 weekly. Medical Branch vitamin 2021-0 Yes [id number] 1000ug Take 1 U nivers B-12 1,000 4-11 tablet by ity of mcg tablet 00:00: mouth [place] 00 daily. Medical Branch cyanocobala 2021-0 Yes [id number] 1000ug 1 mL by [facility] min 1,000 4-11 Intr[facility] ity of mcg/mL 00:00: lar route [place] injection 00 weekly. [facility] Branch vitamin 2021-0 Yes [id number] 1000ug Take 1 U nivers B-12 1,000 4-11 tablet by ity of mcg tablet 00:00: mouth [place] 00 daily. [facility] Branch cyanocobala 2021-0 Yes [id number] 1000ug 1 mL by [facility] min 1,000 4-11 Intr[facility] ity of mcg/mL 00:00: lar route [place] injection 00 weekly. Medical Branch vitamin 2021-0 Yes [id number] 1000ug Take 1 U nivers B-12 1,000 4-11 tablet by ity of mcg tablet 00:00: mouth [place] 00 daily. Medical Branch cyanocobala 2021-0 Yes [id number] 1000ug 1 mL by [facility] min 1,000 4-11 [facility] ity of mcg/mL 00:00: lar route [place] injection 00 weekly. Medical Branch vitamin 2021-0 Yes [id number] 1000ug Take 1 U nivers B-12 1,000 4-11 tablet by ity of mcg tablet 00:00: mouth [place] 00 daily. Medical Branch cyanocobala 2021-0 Yes [id number] 1000ug 1 mL by [facility] min 1,000 4-11 [facility] ity of mcg/mL 00:00: lar route [place] injection 00 weekly. Medical Branch vitamin 2021-0 Yes [id number] 1000ug Take 1 U nivers B-12 1,000 4-11 tablet by ity of mcg tablet 00:00: mouth [place] 00 daily. Medical Branch cyanocobala 2021-0 Yes [id number] 1000ug 1 mL by [facility] min 1,000 4-11 Intr[facility] ity of mcg/mL 00:00: lar route [place] injection 00 weekly. Medical Branch vitamin 2021-0 Yes [id number] 1000ug Take 1 U nivers B-12 1,000 4-11 tablet by ity of mcg tablet 00:00: mouth [place] 00 daily. Medical Branch cyanocobala 2021-0 Yes [id number] 1000ug 1 mL by [facility] min 1,000 4-11 [facility] ity of mcg/mL 00:00: lar route [place] injection 00 weekly. Medical Branch vitamin 2021-0 Yes [id number] 1000ug Take 1 U nivers B-12 1,000 4-11 tablet by ity of mcg tablet 00:00: mouth [place] 00 daily. Medical Branch cyanocobala 2021-0 Yes [id number] 1000ug 1 mL by [facility] min 1,000 4-11 [facility] ity of mcg/mL 00:00: lar route [place] injection 00 weekly. Medical Branch vitamin 2021-0 Yes [id number] 1000ug Take 1 U nivers B-12 1,000 4-11 tablet by ity of mcg tablet 00:00: mouth [place] 00 daily. Medical Branch cyanocobala 2021-0 Yes [id number] 1000ug 1 mL by [facility] min 1,000 4-11 [facility] of mcg/mL 00:00: lar route [place] injection 00 weekly. [facility] vitamin 2021-0 Yes [id number] 1000ug Take 1 U nivers B-12 1,000 4-11 tablet by ity of mcg tablet 00:00: mouth [place] 00 daily. [facility] cyanocobala 2021-0 Yes [id number] 1000ug 1 mL by [facility] min 1,000 4-11 [facility] of mcg/mL 00:00: lar route [place] injection 00 weekly. [facility] vitamin 2021-0 Yes [id number] 1000ug Take 1 [facility] nivers B-12 1,000 4-11 tablet by ity of mcg tablet 00:00: mouth [place] 00 daily. [facility] cyanocobala 2021-0 Yes [id number] 1000ug 1 mL by [facility] min 1,000 4-11 [facility] of mcg/mL 00:00: lar route [place] injection 00 weekly. [facility] vitamin 2021-0 Yes [id number] 1000ug Take 1 [facility] nivers B-12 1,000 4-11 tablet by [facility]y of mcg tablet 00:00: mouth [place] 00 daily. [facility] cyanocobala 2021-0 Yes [id number] 1000ug 1 mL by [facility] min 1,000 4-11 [facility] of mcg/mL 00:00: lar route [place] injection 00 weekly. [facility] vitamin 2021-0 Yes [id number] 1000ug Take 1 [facility] nivers B-12 1,000 4-11 tablet by [facility]y of mcg tablet 00:00: mouth [place] 00 daily. [facility] cyanocobala 2021-0 Yes [id number] 1000ug 1 mL by [facility] min 1,000 4-11 [facility] of mcg/mL 00:00: lar route [place] injection 00 weekly. [facility] vitamin 2021-0 Yes [id number] 1000ug Take 1 U nivers B-12 1,000 4-11 tablet by ity of mcg tablet 00:00: mouth [place] 00 daily. [facility] cyanocobala 2022-0 Yes [id number] 1000ug 1 mL by [facility] min 1,000 4-11 Intr[facility]y of mcg/mL 00:00: lar route [place] injection 00 weekly. [facility] vitamin 2021-0 Yes [id number] 1000ug Take 1 [facility] nivers B-12 1,000 4-11 tablet by ity of mcg tablet 00:00: mouth [place] 00 daily. [facility] cyanocobala 2021-0 Yes [id number] 1000ug 1 mL by [facility] min 1,000 4-11 [facility] of mcg/mL 00:00: lar route [place] injection 00 weekly. [facility] vitamin 2021-0 Yes [id number] 1000ug Take 1 [facility] nivers B-12 1,000 4-11 tablet by [facility]y of mcg tablet 00:00: mouth [place] 00 daily. [facility] cyanocobala 2021-0 Yes [id number] 1000ug 1 mL by [facility] min 1,000 4-11 [facility] of mcg/mL 00:00: lar route [place] injection 00 weekly. [facility] vitamin 2021-0 Yes [id number] 1000ug Take 1 [facility] nivers B-12 1,000 4-11 tablet by ity of mcg tablet 00:00: mouth [place] 00 daily. [facility] cyanocobala 2021-0 Yes [id number] 1000ug 1 mL by [facility] min 1,000 4-11 [facility] of mcg/mL 00:00: lar route [place] injection 00 weekly. [facility] vitamin 2021-0 Yes [id number] 1000ug Take 1 [facility] nivers B-12 1,000 4-11 tablet by [facility]y of mcg tablet 00:00: mouth [place] 00 daily. [facility] cyanocobala 2021-0 Yes [id number] 1000ug 1 mL by [facility] min 1,000 4-11 [facility] of mcg/mL 00:00: lar route [place] injection 00 weekly. [facility] vitamin 2021-0 Yes [id number] 1000ug Take 1 [facility] nivers B-12 1,000 4-11 tablet by [facility]y of mcg tablet 00:00: mouth [place] 00 daily. [facility] cyanocobala 2021-0 Yes [id number] 1000ug 1 mL by [facility] min 1,000 4-11 [facility] of mcg/mL 00:00: lar route [place] injection 00 weekly. [facility] vitamin 2022-0 Yes [id number] 1000ug Take 1 [facility] nivers B-12 1,000 4-11 tablet by [facility]y of mcg tablet 00:00: mouth [place] 00 daily. [facility] cyanocobala 2021-0 Yes [id number] 1000ug 1 mL by [facility] min 1,000 4-11 [facility] of mcg/mL 00:00: lar route [place] injection 00 weekly. [facility] vitamin 2021-0 Yes [id number] 1000ug Take 1 [facility] nivers B-12 1,000 4-11 tablet by [facility]y of mcg tablet 00:00: mouth [place] 00 daily. [facility] cyanocobala 2021-0 Yes [id number] 1000ug 1 mL by [facility] min 1,000 4-11 [facility] of mcg/mL 00:00: lar route [place] injection 00 weekly. [facility] vitamin 2021-0 Yes [id number] 1000ug Take 1 [facility] nivers B-12 1,000 4-11 tablet by ity of mcg tablet 00:00: mouth [place] 00 daily. [facility] cyanocobala 2021-0 Yes [id number] 1000ug 1 mL by [facility] min 1,000 4-11 Intr[facility]y of mcg/mL 00:00: lar route [place] injection 00 weekly. [facility] vitamin 2021-0 Yes [id number] 1000ug Take 1 [facility] nivers B-12 1,000 4-11 tablet by [facility]y of mcg tablet 00:00: mouth [place] 00 daily. [facility] cyanocobala 2021-0 Yes [id number] 1000ug 1 mL by [facility] min 1,000 4-11 Intr[facility] of mcg/mL 00:00: lar route [place] injection 00 weekly. [facility] vitamin 2021-0 Yes [id number] 1000ug Take 1 [facility] nivers B-12 1,000 4-11 tablet by [facility]y of mcg tablet 00:00: mouth [place] 00 daily. [facility] cyanocobala 2021-0 Yes [id number] 1000ug 1 mL by [facility] min 1,000 4-11 Intr[facility] of mcg/mL 00:00: lar route [place] injection 00 weekly. [facility] vitamin 2021-0 Yes [id number] 1000ug Take 1 [facility] nivers B-12 1,000 4-11 tablet by [facility]y of mcg tablet 00:00: mouth [place] 00 daily. [facility] cyanocobala 2021-0 Yes [id number] 1000ug 1 mL by [facility] min 1,000 4-11 Intr[facility]y of mcg/mL 00:00: lar route [place] injection 00 weekly. [facility] vitamin 2021-0 Yes [id number] 1000ug Take 1 U nivers B-12 1,000 4-11 tablet by ity of mcg tablet 00:00: mouth [place] 00 daily. [facility] cyanocobala 2021-0 Yes [id number] 1000ug 1 mL by [facility] min 1,000 4-11 Intr[facility]y of mcg/mL 00:00: lar route [place] injection 00 weekly. [facility] vitamin 2021-0 Yes [id number] 1000ug Take 1 [facility] nivers B-12 1,000 4-11 tablet by ity of mcg tablet 00:00: mouth [place] 00 daily. [facility] cyanocobala 2021-0 Yes [id number] 1000ug 1 mL by [facility] min 1,000 4-11 Intr[facility]y of mcg/mL 00:00: lar route [place] injection 00 weekly. [facility] vitamin 2021-0 Yes [id number] 1000ug Take 1 U nivers B-12 1,000 4-11 tablet by ity of mcg tablet 00:00: mouth [place] 00 daily. [facility] cyanocobala 2021-0 Yes [id number] 1000ug 1 mL by [facility] min 1,000 4-11 Intr[facility] of mcg/mL 00:00: lar route [place] injection 00 weekly. [facility] vitamin 2021-0 Yes [id number] 1000ug Take 1 U nivers B-12 1,000 4-11 tablet by ity of mcg tablet 00:00: mouth [place] 00 daily. [facility] cyanocobala 2021-0 Yes [id number] 1000ug 1 mL by [facility] min 1,000 4-11 Intr[facility]y of mcg/mL 00:00: lar route [place] injection 00 weekly. [facility] vitamin 2021-0 Yes [id number] 1000ug Take 1 U nivers B-12 1,000 4-11 tablet by ity of mcg tablet 00:00: mouth [place] 00 daily. [facility] cyanocobala 2021-0 Yes [id number] 1000ug 1 mL by [facility] min 1,000 4-11 Intr[facility] of mcg/mL 00:00: lar route [place] injection 00 weekly. [facility] vitamin 2021-0 Yes [id number] 1000ug Take 1 U nivers B-12 1,000 4-11 tablet by ity of mcg tablet 00:00: mouth [place] 00 daily. [facility] cyanocobala 2021-0 Yes [id number] 1000ug 1 mL by [facility] min 1,000 4-11 Intr[facility]y of mcg/mL 00:00: lar route [place] injection 00 weekly. [facility] vitamin 2021-0 Yes [id number] 1000ug Take 1 U nivers B-12 1,000 4-11 tablet by ity of mcg tablet 00:00: mouth [place] 00 daily. [facility] cyanocobala 0 Yes [id number] 1000ug 1 mL by [facility] min 1,000 4-11 Intr[facility]y of mcg/mL 00:00: lar route [place] injection 00 weekly. [facility] vitamin 2021-0 Yes [id number] 1000ug Take 1 [facility] nivers B-12 1,000 4-11 tablet by ity of mcg tablet 00:00: mouth [place] 00 daily. [facility] cyanocobala 0 Yes [id number] 1000ug 1 mL by [facility] min 1,000 4-11 Intr[facility]y of mcg/mL 00:00: lar route [place] injection 00 weekly. [facility] vitamin 2021-0 Yes [id number] 1000ug Take 1 U nivers B-12 1,000 4-11 tablet by ity of mcg tablet 00:00: mouth [place] 00 daily. [facility] cyanocobala 2021-0 Yes [id number] 1000ug 1 mL by [facility] min 1,000 4-11 Intr[facility]y of mcg/mL 00:00: lar route [place] injection 00 weekly. [facility] vitamin 2021-0 2022- No [id number] 1000ug Take 1 [facility] B-12 1,000 4-11 09-22 tablet by ity of mcg tablet 00:00: 00:00 mouth [place] 00 :00 daily. [facility] cyanocobala 2021-0 2022- No [id number] 1000ug 1 mL by [facility] min 1,000 4-11 09-22 Intramus[facility] ity of mcg/mL 00:00: 00:00 lar route [place] injection 00 :00 weekly. [facility] vitamin 2021-0 2022- No [id number] 1000ug Take 1 [facility] B-12 1,000 4-11 09-22 tablet by ity of mcg tablet 00:00: 00:00 mouth [place] 00 :00 daily. [facility] cyanocobala 2022- No [id number] 1000ug 1 mL by [facility] min 1,000 4-12 21-22 Intramus[facility] ity of mcg/mL 00:00: 00:00 lar route [place] injection 00 :00 weekly. [facility] vitamin 2022- No [id number] 1000ug Take 1 [facility] B-12 1,000 4-12 21-22 tablet by ity of mcg tablet 00:00: 00:00 mouth [place] 00 :00 daily. [facility] cyanocobala 2022- No [id number] 1000ug 1 mL by [facility] min 1,000 -12 21-22 Intramus[facility] ity of mcg/mL 00:00: 00:00 lar route [place] injection 00 :00 weekly. [facility] vitamin 2022- No [id number] 1000ug Take 1 [facility] B-12 1,000 4-12 21-22 tablet by ity of mcg tablet 00:00: 00:00 mouth [place] 00 :00 daily. [facility] cyanocobala 2022- No [id number] 1000ug 1 mL by [facility] min 1,000 -12 21-22 Intramus[facility] ity of mcg/mL 00:00: 00:00 lar route [place] injection 00 :00 weekly. [facility] vitamin 2022- No [id number] 1000ug Take 1 [facility] B-12 1,000 -12 21-22 tablet by ity of mcg tablet 00:00: 00:00 mouth [place] 00 :00 daily. [facility] cyanocobala 2022- No [id number] 1000ug 1 mL by [facility] min 1,000 -12 21-22 Intramus[facility] ity of mcg/mL 00:00: 00:00 lar route [place] injection 00 :00 weekly. [facility] vitamin 2022- No [id number] 1000ug Take 1 [facility] B-12 1,000 4-11 -22 tablet by ity of mcg tablet 00:00: 00:00 mouth [place] 00 :00 daily. [facility] cyanocobala 2022- No [id number] 1000ug 1 mL by [facility] min 1,000 4-11 09-22 Intramus[facility] ity of mcg/mL 00:00: 00:00 lar route [place] injection 00 :00 weekly. [facility] vitamin 2022- No [id number] 1000ug Take 1 [facility] B-12 1,000 4-11 -22 tablet by ity of mcg tablet 00:00: 00:00 mouth [place] 00 :00 daily. [facility] cyanocobala 2022- No [id number] 1000ug 1 mL by [facility] min 1,000 4-12 21-22 Intramus[facility] ity of mcg/mL 00:00: 00:00 lar route [place] injection 00 :00 weekly. [facility] vitamin 2022- No [id number] 1000ug Take 1 [facility] B-12 1,000 4-12 21-22 tablet by ity of mcg tablet 00:00: 00:00 mouth [place] 00 :00 daily. [facility] cyanocobala 2022- No [id number] 1000ug 1 mL by [facility] min 1,000 4-12 21-22 Intramus[facility] ity of mcg/mL 00:00: 00:00 lar route [place] injection 00 :00 weekly. [facility] vitamin 2022- No [id number] 1000ug Take 1 [facility] B-12 1,000 4-12 21-22 tablet by ity of mcg tablet 00:00: 00:00 mouth [place] 00 :00 daily. [facility] cyanocobala 2022- No [id number] 1000ug 1 mL by [facility] min 1,000 -12 21-22 Intramus[facility] ity of mcg/mL 00:00: 00:00 lar route [place] injection 00 :00 weekly. [facility] vitamin 2022- No [id number] 1000ug Take 1 [facility] B-12 1,000 4-12 21-22 tablet by ity of mcg tablet 00:00: 00:00 mouth [place] 00 :00 daily. [facility] cyanocobala 2022- No [id number] 1000ug 1 mL by [facility] min 1,000 4-12 21-22 Intramus[facility] ity of mcg/mL 00:00: 00:00 lar route [place] injection 00 :00 weekly. [facility] losartan 0 Yes 20mg Take 20 mg [facility] vers potassium 4-05 by mouth. ity o f (LOSARTAN 09:24: [place] ORAL) [address] [place] [address] FUROSEMIDE 0 Yes 40mg Take 40 mg [facility] nivers ORAL 4-05 by mouth ity of 09:24: daily. [address] losartan 2021-0 Yes 20mg Take 20 mg [facility] vers potassium 4-05 by mouth. ity o f (LOSARTAN 09:24: [place] ORAL) [address] [place] [address] FUROSEMIDE 0 Yes 40mg Take 40 mg U nivers ORAL 4-05 by mouth ity of 09:24: daily. [address] losartan 0 Yes 20mg Take 20 mg [facility] vers potassium 4-05 by mouth. ity o f (LOSARTAN 09:24: [place] ORAL) [address] [place] [address] FUROSEMIDE 0 Yes 40mg Take 40 mg U nivers ORAL 4-05 by mouth ity of 09:24: daily. [address] losartan 0 Yes 20mg Take 20 mg [facility] vers potassium 4-05 by mouth. ity o f (LOSARTAN 09:24: [place] ORAL) [address] [place] [address] FUROSEMIDE 0 Yes 40mg Take 40 mg U nivers ORAL 4-05 by mouth ity of 09:24: daily. [address] losartan 2021-0 Yes 20mg Take 20 mg [facility] vers potassium 4-05 by mouth. ity o f (LOSARTAN 09:24: [place] ORAL) [address] [place] [address] FUROSEMIDE 0 Yes 40mg Take 40 mg U nivers ORAL 4-05 by mouth ity of 09:24: daily. [address] losartan 2021-0 Yes 20mg Take 20 mg [facility] vers potassium 4-05 by mouth. ity o f (LOSARTAN 09:24: [place] ORAL) [address] [place] [address] FUROSEMIDE 0 Yes 40mg Take 40 mg U nivers ORAL 4-05 by mouth ity of 09:24: daily. [address] losartan 2021-0 Yes 20mg Take 20 mg [facility] vers potassium 4-05 by mouth. ity o f (LOSARTAN 09:24: [place] ORAL) [address] [place] [address] FUROSEMIDE 0 Yes 40mg Take 40 mg U nivers ORAL 4-05 by mouth ity of 09:24: daily. [address] losartan 2021-0 Yes 20mg Take 20 mg [facility] vers potassium 4-05 by mouth. ity o f (LOSARTAN 09:24: [place] ORAL) [address] [place] [address] FUROSEMIDE 0 Yes 40mg Take 40 mg U nivers ORAL 4-05 by mouth ity of 09:24: daily. [address] losartan 2021-0 Yes 20mg Take 20 mg [facility] vers potassium 4-05 by mouth. ity o f (LOSARTAN 09:24: [place] ORAL) [address] [place] [address] FUROSEMIDE 0 Yes 40mg Take 40 mg U nivers ORAL 4-05 by mouth ity of 09:24: daily. [address] losartan 2021-0 Yes 20mg Take 20 mg [facility] vers potassium 4-05 by mouth. ity o f (LOSARTAN 09:24: [place] ORAL) [address] [place] [address] FUROSEMIDE 0 Yes 40mg Take 40 mg U nivers ORAL 4-05 by mouth ity of 09:24: daily. [address] losartan 2021-0 Yes 20mg Take 20 mg [facility] vers potassium 4-05 by mouth. ity o f (LOSARTAN 09:24: [place] ORAL) [address] [place] [address] FUROSEMIDE 0 Yes 40mg Take 40 mg U nivers ORAL 4-05 by mouth ity of 09:24: daily. [address] losartan 2021-0 Yes 20mg Take 20 mg [facility] vers potassium 4-05 by mouth. ity o f (LOSARTAN 09:24: [place] ORAL) [address] [place] [address] FUROSEMIDE 0 Yes 40mg Take 40 mg U nivers ORAL 4-05 by mouth ity of 09:24: daily. [address] losartan 2021-0 Yes 20mg Take 20 mg [facility] vers potassium 4-05 by mouth. ity o f (LOSARTAN 09:24: [place] ORAL) [address] [place] [address] FUROSEMIDE 2021-0 Yes 40mg Take 40 mg U nivers ORAL 4-05 by mouth ity of 09:24: daily. [address] losartan 2021-0 Yes 20mg Take 20 mg [facility] vers potassium 4-05 by mouth. ity o f (LOSARTAN 09:24: [place] ORAL) [address] [place] [address] FUROSEMIDE 2021-0 Yes 40mg Take 40 mg U nivers ORAL 4-05 by mouth ity of 09:24: daily. [address] losartan 2021-0 Yes 20mg Take 20 mg [facility] vers potassium 4-05 by mouth. ity o f (LOSARTAN 09:24: [place] ORAL) [address] [place] [address] FUROSEMIDE 2021-0 Yes 40mg Take 40 mg U nivers ORAL 4-05 by mouth ity of 09:24: daily. [address] losartan 2021-0 Yes 20mg Take 20 mg [facility] vers potassium 4-05 by mouth. ity o f (LOSARTAN 09:24: [place] ORAL) [address] [place] [address] FUROSEMIDE 2021-0 Yes 40mg Take 40 mg U nivers ORAL 4-05 by mouth ity of 09:24: daily. [address] losartan 2021-0 Yes 20mg Take 20 mg [facility] vers potassium 4-05 by mouth. ity o f (LOSARTAN 09:24: [place] ORAL) [address] [place] [address] FUROSEMIDE 0 Yes 40mg Take 40 mg U nivers ORAL 4-05 by mouth ity of 09:24: daily. [address] losartan 2021-0 Yes 20mg Take 20 mg [facility] vers potassium 4-05 by mouth. ity o f (LOSARTAN 09:24: [place] ORAL) [address] [place] [address] FUROSEMIDE 2021-0 Yes 40mg Take 40 mg U nivers ORAL 4-05 by mouth ity of 09:24: daily. [address] losartan 2021-0 Yes 20mg Take 20 mg [facility] vers potassium 4-05 by mouth. ity o f (LOSARTAN 09:24: [place] ORAL) [address] [place] [address] FUROSEMIDE 2021-0 Yes 40mg Take 40 mg U nivers ORAL 4-05 by mouth ity of 09:24: daily. [address] losartan 2021-0 Yes 20mg Take 20 mg [facility] vers potassium 4-05 by mouth. ity o f (LOSARTAN 09:24: [place] ORAL) [address] [place] [address] FUROSEMIDE 2021-0 Yes 40mg Take 40 mg U nivers ORAL 4-05 by mouth ity of 09:24: daily. [address] losartan 2021-0 Yes 20mg Take 20 mg [facility] vers potassium 4-05 by mouth. ity o f (LOSARTAN 09:24: [place] ORAL) [address] [place] [address] FUROSEMIDE 2021-0 Yes 40mg Take 40 mg U nivers ORAL 4-05 by mouth ity of 09:24: daily. [address] losartan 2021-0 Yes 20mg Take 20 mg [facility] vers potassium 4-05 by mouth. ity o f (LOSARTAN 09:24: [place] ORAL) [address] [place] [address] FUROSEMIDE 2021-0 Yes 40mg Take 40 mg U nivers ORAL 4-05 by mouth ity of 09:24: daily. [address] losartan 2021-0 Yes 20mg Take 20 mg [facility] vers potassium 4-05 by mouth. ity o f (LOSARTAN 09:24: [place] ORAL) [address] [place] [address] FUROSEMIDE 2021-0 Yes 40mg Take 40 mg U nivers ORAL 4-05 by mouth ity of 09:24: daily. [address] losartan 2021-0 Yes 20mg Take 20 mg [facility] vers potassium 4-05 by mouth. ity o f (LOSARTAN 09:24: [place] ORAL) [address] [place] [address] FUROSEMIDE 2021-0 Yes 40mg Take 40 mg U nivers ORAL 4-05 by mouth ity of 09:24: daily. [address] losartan 2021-0 Yes 20mg Take 20 mg [facility] vers potassium 4-05 by mouth. ity o f (LOSARTAN 09:24: [place] ORAL) [address] [place] [address] FUROSEMIDE 0 Yes 40mg Take 40 mg U nivers ORAL 4-05 by mouth ity of 09:24: daily. [address] losartan 2021-0 Yes 20mg Take 20 mg [facility] vers potassium 4-05 by mouth. ity o f (LOSARTAN 09:24: [place] ORAL) [address] [place] [address] FUROSEMIDE 2021-0 Yes 40mg Take 40 mg U nivers ORAL 4-05 by mouth ity of 09:24: daily. [address] losartan 2021-0 Yes 20mg Take 20 mg [facility] vers potassium 4-05 by mouth. ity o f (LOSARTAN 09:24: [place] ORAL) [address] [place] [address] FUROSEMIDE 0 Yes 40mg Take 40 mg U nivers ORAL 4-05 by mouth ity of 09:24: daily. [address] losartan 2021-0 Yes 20mg Take 20 mg [facility] vers potassium 4-05 by mouth. ity o f (LOSARTAN 09:24: [place] ORAL) [address] [place] [address] FUROSEMIDE 2021-0 Yes 40mg Take 40 mg U nivers ORAL 4-05 by mouth ity of 09:24: daily. [address] losartan 2021-0 Yes 20mg Take 20 mg [facility] vers potassium 4-05 by mouth. ity o f (LOSARTAN 09:24: [place] ORAL) [address] [place] [address] FUROSEMIDE 2021-0 Yes 40mg Take 40 mg U nivers ORAL 4-05 by mouth ity of 09:24: daily. [place] 36 [facility] losartan 2022-0 Yes 20mg [...] [place] ORAL) 36 [facility] gabapentin Yes [id number] 300mg Take 1 [facility] 300 mg 4-05 capsule by ity of capsule 00:00: mouth 3 [place] 00 (three) Medical times Branch daily. rizatriptan Yes [id number] 5mg Take 1 [facility] 5 mg 4-05 tablet by ity of disintegrat 00:00: mouth [place] ing tablet 00 needed for Med ical Migraine Branch (Take 5mg at the beginning of the headache can repeat 2h after if headaches persists). May repeat in 2 hours if needed magnesium 2021- Yes [id number] 400mg Take 2 [facility] gluconate 4-05 tablets by ity of 200 mg 00:00: mouth 2 [place] tablet 00 (two) Medical times Branch daily. gabapentin Yes [id number] 300mg Take 1 [facility] 300 mg 4-05 capsule by ity of capsule 00:00: mouth 3 [place] 00 (three) Medical times Branch daily. rizatriptan 2021-0 Yes [id number] 5mg Take 1 [facility] 5 mg 4-05 tablet by ity of disintegrat 00:00: mouth [place] tablet 00 needed for Med ical Migraine Branch (Take 5mg at the beginning of the headache can repeat 2h after if headaches persists). May repeat in 2 hours if needed magnesium 2022-0 Yes [id number] 400mg Take 2 [facility] gluconate 4-05 tablets by ity of 200 mg 00:00: mouth 2 [place] tablet 00 (two) Medical times Branch daily. gabapentin 2022-0 Yes [id number] 300mg Take 1 [facility] 300 mg 4-05 capsule by ity of capsule 00:00: mouth 3 [place] 00 (three) Medical times Branch daily. rizatriptan 2022-0 Yes [id number] 5mg Take 1 [facility] 5 mg 4-05 tablet by ity of disintegrat 00:00: mouth [place] tablet 00 needed for Med ical Migraine Branch (Take 5mg at the beginning of the headache can repeat 2h after if headaches persists). May repeat in 2 hours if needed magnesium 2022-0 Yes [id number] 400mg Take 2 [facility] gluconate 4-05 tablets by ity of 200 mg 00:00: mouth 2 [place] tablet 00 (two) Medical times Branch daily. gabapentin 2022-0 Yes [id number] 300mg Take 1 [facility] 300 mg 4-05 capsule by ity of capsule 00:00: mouth 3 [place] 00 (three) Medical times Branch daily. rizatriptan 2022-0 Yes [id number] 5mg Take 1 [facility] 5 mg 4-05 tablet by ity of disintegrat 00:00: mouth [place] tablet 00 needed for Med ical Migraine Branch (Take 5mg at the beginning of the headache can repeat 2h after if headaches persists). May repeat in 2 hours if needed magnesium 2022-0 Yes [id number] 400mg Take 2 [facility] gluconate 4-05 tablets by ity of 200 mg 00:00: mouth 2 [place] tablet 00 (two) Medical times Branch daily. gabapentin 2022-0 Yes [id number] 300mg Take 1 [facility] 300 mg 4-05 capsule by ity of capsule 00:00: mouth 3 [place] 00 (three) Medical times Branch daily. rizatriptan 2022-0 Yes [id number] 5mg Take 1 [facility] 5 mg 4-05 tablet by ity of disintegrat 00:00: mouth [place] tablet 00 needed for Med ical Migraine Branch (Take 5mg at the beginning of the headache can repeat 2h after if headaches persists). May repeat in 2 hours if needed magnesium 2022-0 Yes [id number] 400mg Take 2 [facility] gluconate 4-05 tablets by ity of 200 mg 00:00: mouth 2 [place] tablet 00 (two) Medical times Branch daily. gabapentin 2022-0 Yes [id number] 300mg Take 1 [facility] 300 mg 4-05 capsule by ity of capsule 00:00: mouth 3 [place] 00 (three) Medical times Branch daily. rizatriptan 2022-0 Yes [id number] 5mg Take 1 [facility] 5 mg 4-05 tablet by ity of disintegrat 00:00: mouth as [place] tablet 00 needed for Med ical Migraine Branch (Take 5mg at the beginning of the headache can repeat 2h after if headaches persists). May repeat in 2 hours if needed magnesium 2022-0 Yes [id number] 400mg Take 2 [facility] gluconate 4-05 tablets by ity of 200 mg 00:00: mouth 2 [place] tablet 00 (two) Medical times Branch daily. gabapentin 2022-0 Yes [id number] 300mg Take 1 [facility] 300 mg 4-05 capsule by ity of capsule 00:00: mouth 3 [place] (three) Medical times Branch daily. rizatriptan 2022-0 Yes [id number] 5mg Take 1 [facility] 5 mg 4-05 tablet by ity of disintegrat 00:00: mouth as [place] tablet 00 needed for Med ical Migraine Branch (Take 5mg at the beginning of the headache can repeat 2h after if headaches persists). May repeat in 2 hours if needed magnesium 2022-0 Yes [id number] 400mg Take 2 [facility] gluconate 4-05 tablets by ity of 200 mg 00:00: mouth 2 [place] tablet 00 (two) Medical times Branch daily. gabapentin 2022-0 Yes [id number] 300mg Take 1 [facility] 300 mg 4-05 capsule by ity of capsule 00:00: mouth 3 [place] 00 (three) Medical times Branch daily. rizatriptan 2022-0 Yes [id number] 5mg Take 1 [facility] 5 mg 4-05 tablet by ity of disintegrat 00:00: mouth as [place] tablet 00 needed for Med ical Migraine Branch (Take 5mg at the beginning of the headache can repeat 2h after if headaches persists). May repeat in 2 hours if needed magnesium 2022-0 Yes [id number] 400mg Take 2 [facility] gluconate 4-05 tablets by ity of 200 mg 00:00: mouth 2 [place] tablet 00 (two) Medical times Branch daily. gabapentin 2022-0 Yes [id number] 300mg Take 1 [facility] 300 mg 4-05 capsule by ity of capsule 00:00: mouth 3 [place] 00 (three) Medical times Branch daily. rizatriptan 2022-0 Yes [id number] 5mg Take 1 [facility] 5 mg 4-05 tablet by ity of disintegrat 00:00: mouth as [place] tablet 00 needed for Med ical Migraine Branch (Take 5mg at the beginning of the headache can repeat 2h after if headaches persists). May repeat in 2 hours if needed magnesium 2022-0 Yes [id number] 400mg Take 2 [facility] gluconate 4-05 tablets by ity of 200 mg 00:00: mouth 2 [place] tablet 00 (two) Medical times Branch daily. gabapentin 2022-0 Yes [id number] 300mg Take 1 [facility] 300 mg 4-05 capsule by ity of capsule 00:00: mouth 3 [place] (three) Medical times Branch daily. rizatriptan 2022-0 Yes [id number] 5mg Take 1 [facility] 5 mg 4-05 tablet by ity of disintegrat 00:00: mouth as [place] tablet 00 needed for [facility] (Take 5mg at the beginning of the headache can repeat 2h after if headaches persists). May repeat in 2 hours if needed magnesium 2022-0 Yes [id number] 400mg Take 2 [facility] glu[facility]-05 tablets by [facility] 200 mg 00:00: mouth 2 [place] tablet 00 (two) [facility] times [facility] daily. gabapentin 2022-0 Yes [id number] 300mg Take 1 [facility] 300 mg 4-05 capsule by [facility] capsule 00:00: mouth 3 [place] 00 (three) [facility] times [facility] daily. rizatriptan 2022-0 Yes [id number] 5mg Take 1 [facility] 5 mg 4-05 tablet by [facility] disintegrat 00:00: mouth as [place] ing tablet 00 needed for [facility] (Take 5mg at the beginning of the headache can repeat 2h after if headaches persists). May repeat in 2 hours if needed magnesium 2022-0 Yes [id number] 400mg Take 2 [facility] gluconate 4-05 tablets by [facility] 200 mg 00:00: mouth 2 [place] tablet 00 (two) [facility] times [facility] daily. gabapentin 2022-0 Yes [id number] 300mg Take 1 [facility] 300 mg 4-05 capsule by [facility] capsule 00:00: mouth 3 [place] 00 (three) [facility] times [facility] daily. rizatriptan 2022-0 Yes [id number] 5mg Take 1 [facility] 5 mg 4-05 tablet by [facility] disintegrat 00:00: mouth as [place] ing tablet 00 needed for [facility] (Take 5mg at the beginning of the headache can repeat 2h after if headaches persists). May repeat in 2 hours if needed magnesium 2022-0 Yes [id number] 400mg Take 2 [facility] gluconate 4-05 tablets by [facility] 200 mg 00:00: mouth 2 [place] tablet 00 (two) [facility] times [facility] daily. gabapentin 2022-0 Yes [id number] 300mg Take 1 [facility] 300 mg 4-05 capsule by [facility] capsule 00:00: mouth 3 [place] 00 (three) [facility] times [facility] daily. rizatriptan 2022-0 Yes [id number] 5mg Take 1 [facility] 5 mg 4-05 tablet by [facility] disintegrat 00:00: mouth as [place] ing tablet 00 needed for [facility] (Take 5mg at the beginning of the headache can repeat 2h after if headaches persists). May repeat in 2 hours if needed magnesium 2022-0 Yes [id number] 400mg Take 2 [facility] gluconate 4-05 tablets by [facility] 200 mg 00:00: mouth 2 [place] tablet 00 (two) [facility] times [facility] daily. gabapentin 2022-0 Yes [id number] 300mg Take 1 [facility] 300 mg 4-05 capsule by [facility] capsule 00:00: mouth 3 [place] 00 (three) [facility] times [facility] daily. rizatriptan 2022-0 Yes [id number] 5mg Take 1 [facility] 5 mg 4-05 tablet by [facility] disintegrat 00:00: mouth as [place] ing tablet 00 needed for [facility] (Take 5mg at the beginning of the headache can repeat 2h after if headaches persists). May repeat in 2 hours if needed magnesium 2022-0 Yes [id number] 400mg Take 2 [facility] gluconate 4-05 tablets by [facility] 200 mg 00:00: mouth 2 [place] tablet 00 (two) [facility] times [facility] daily. gabapentin 2022-0 Yes [id number] 300mg Take 1 [facility] 300 mg 4-05 capsule by [facility] capsule 00:00: mouth 3 [place] 00 (three) [facility] times [facility] daily. rizatriptan 2022-0 Yes [id number] 5mg Take 1 [facility] 5 mg 4-05 tablet by [facility] disintegrat 00:00: mouth as [place] ing tablet 00 needed for [facility] (Take 5mg at the beginning of the headache can repeat 2h after if headaches persists). May repeat in 2 hours if needed magnesium 2022-0 Yes [id number] 400mg Take 2 [facility] gluconate 4-05 tablets by [facility] 200 mg 00:00: mouth 2 [place] tablet 00 (two) [facility] times [facility] daily. gabapentin 2022-0 Yes [id number] 300mg Take 1 [facility] 300 mg 4-05 capsule by [facility] capsule 00:00: mouth 3 [place] 00 (three) [facility] times [facility] daily. rizatriptan 2022-0 Yes [id number] 5mg Take 1 [facility] 5 mg 4-05 tablet by [facility] disintegrat 00:00: mouth as [place] ing tablet 00 needed for [facility] (Take 5mg at the beginning of the headache can repeat 2h after if headaches persists). May repeat in 2 hours if needed magnesium 2022-0 Yes [id number] 400mg Take 2 [facility] gluconate 4-05 tablets by [facility] 200 mg 00:00: mouth 2 [place] tablet 00 (two) [facility] times [facility] daily. gabapentin 2022-0 Yes [id number] 300mg Take 1 [facility] 300 mg 4-05 capsule by [facility] capsule 00:00: mouth 3 [place] 00 (three) [facility] times [facility] daily. rizatriptan 2022-0 Yes [id number] 5mg Take 1 [facility] 5 mg 4-05 tablet by [facility] disintegrat 00:00: mouth as [place] ing tablet 00 needed for [facility] (Take 5mg at the beginning of the headache can repeat 2h after if headaches persists). May repeat in 2 hours if needed magnesium 2022-0 Yes [id number] 400mg Take 2 [facility] gluconate 4-05 tablets by [facility] 200 mg 00:00: mouth 2 [place] tablet 00 (two) [facility] times [facility] daily. gabapentin 2022-0 Yes [id number] 300mg Take 1 [facility] 300 mg 4-05 capsule by [facility] capsule 00:00: mouth 3 [place] 00 (three) [facility] times [facility] daily. rizatriptan 2022-0 Yes [id number] 5mg Take 1 [facility] 5 mg 4-05 tablet by [facility] disintegrat 00:00: mouth as [place] ing tablet 00 needed for [facility] (Take 5mg at the beginning of the headache can repeat 2h after if headaches persists). May repeat in 2 hours if needed magnesium 2022-0 Yes [id number] 400mg Take 2 [facility] gluconate 4-05 tablets by [facility] 200 mg 00:00: mouth 2 [place] tablet 00 (two) [facility] times [facility] daily. gabapentin 2022-0 Yes [id number] 300mg Take 1 [facility] 300 mg 4-05 capsule by [facility] capsule 00:00: mouth 3 [place] 00 (three) [facility] times [facility] daily. rizatriptan 2022-0 Yes [id number] 5mg Take 1 [facility] 5 mg 4-05 tablet by [facility] disintegrat 00:00: mouth as [place] ing tablet 00 needed for [facility] (Take 5mg at the beginning of the headache can repeat 2h after if headaches persists). May repeat in 2 hours if needed magnesium 2022-0 Yes [id number] 400mg Take 2 [facility] gluconate 4-05 tablets by [facility] 200 mg 00:00: mouth 2 [place] tablet 00 (two) [facility] times [facility] daily. gabapentin 2022-0 Yes [id number] 300mg Take 1 [facility] 300 mg 4-05 capsule by [facility] capsule 00:00: mouth 3 [place] 00 (three) [facility] times [facility] daily. rizatriptan 2022-0 Yes [id number] 5mg Take 1 [facility] 5 mg 4-05 tablet by [facility] disintegrat 00:00: mouth as [place] ing tablet 00 needed for [facility] (Take 5mg at the beginning of the headache can repeat 2h after if headaches persists). May repeat in 2 hours if needed magnesium 2022-0 Yes [id number] 400mg Take 2 [facility] gluconate 4-05 tablets by [facility] 200 mg 00:00: mouth 2 [place] tablet 00 (two) [facility] times [facility] daily. gabapentin 2022-0 Yes [id number] 300mg Take 1 [facility] 300 mg 4-05 capsule by [facility] capsule 00:00: mouth 3 [place] (three) [facility] times [facility] daily. rizatriptan 2022-0 Yes [id number] 5mg Take 1 [facility] 5 mg 4-05 tablet by [facility] disintegrat 00:00: mouth as [place] ing tablet 00 needed for [facility] (Take 5mg at the beginning of the headache can repeat 2h after if headaches persists). May repeat in 2 hours if needed magnesium 2022-0 Yes [id number] 400mg Take 2 [facility] gluconate 4-05 tablets by [facility] 200 mg 00:00: mouth 2 [place] tablet 00 (two) [facility] times [facility] daily. gabapentin 2022-0 Yes [id number] 300mg Take 1 [facility] 300 mg 4-05 capsule by [facility] capsule 00:00: mouth 3 [place] (three) [facility] times [facility] daily. rizatriptan 2022-0 Yes [id number] 5mg Take 1 [facility] 5 mg 4-05 tablet by [facility] disintegrat 00:00: mouth as [place] ing tablet 00 needed for [facility] (Take 5mg at the beginning of the headache can repeat 2h after if headaches persists). May repeat in 2 hours if needed magnesium 2022-0 Yes [id number] 400mg Take 2 [facility] gluconate 4-05 tablets by [facility] 200 mg 00:00: mouth 2 [place] tablet 00 (two) [facility] times [facility] daily. gabapentin 2022-0 Yes [id number] 300mg Take 1 [facility] 300 mg 4-05 capsule by [facility] capsule 00:00: mouth 3 [place] (three) [facility] times [facility] daily. rizatriptan 2022-0 Yes [id number] 5mg Take 1 [facility] 5 mg 4-05 tablet by [facility] disintegrat 00:00: mouth as [place] ing tablet 00 needed for [facility] (Take 5mg at the beginning of the headache can repeat 2h after if headaches persists). May repeat in 2 hours if needed magnesium 2022-0 Yes [id number] 400mg Take 2 [facility] gluconate 4-05 tablets by [facility] 200 mg 00:00: mouth 2 [place] tablet 00 (two) [facility] times [facility] daily. gabapentin 2022-0 Yes [id number] 300mg Take 1 [facility] 300 mg 4-05 capsule by [facility] capsule 00:00: mouth 3 [place] (three) [facility] times [facility] daily. rizatriptan 2022-0 Yes [id number] 5mg Take 1 [facility] 5 mg 4-05 tablet by [facility] disintegrat 00:00: mouth as [place] ing tablet 00 needed for [facility] (Take 5mg at the beginning of the headache can repeat 2h after if headaches persists). May repeat in 2 hours if needed magnesium 2022-0 Yes [id number] 400mg Take 2 [facility] glu[facility]ate 4-05 tablets by [facility] 200 mg 00:00: mouth 2 [place] tablet 00 (two) [facility] times [facility] daily. gabapentin 2022-0 Yes [id number] 300mg Take 1 [facility] 300 mg 4-05 capsule by [facility] capsule 00:00: mouth 3 [place] (three) [facility] times [facility] daily. rizatriptan 2022-0 Yes [id number] 5mg Take 1 [facility] 5 mg 4-05 tablet by [facility] disintegrat 00:00: mouth as [place] ing tablet 00 needed for [facility] (Take 5mg at the beginning of the headache can repeat 2h after if headaches persists). May repeat in 2 hours if needed magnesium 2022-0 Yes [id number] 400mg Take 2 [facility] gluconate 4-05 tablets by [facility] 200 mg 00:00: mouth 2 [place] tablet 00 (two) [facility] times [facility] daily. gabapentin 2022-0 Yes [id number] 300mg Take 1 [facility] 300 mg 4-05 capsule by [facility] capsule 00:00: mouth 3 [place] (three) Medical times [facility] daily. rizatriptan 2022-0 Yes [id number] 5mg Take 1 [facility] 5 mg 4-05 tablet by [facility] disintegrat 00:00: mouth as [place] ing tablet 00 needed for [facility] (Take 5mg at the beginning of the headache can repeat 2h after if headaches persists). May repeat in 2 hours if needed magnesium 2022-0 Yes [id number] 400mg Take 2 [facility] gluconate 4-05 tablets by [facility] of 200 mg 00:00: mouth 2 [place] tablet 00 (two) Medical times [facility] daily. gabapentin 2022-0 Yes [id number] 300mg Take 1 [facility] 300 mg 4-05 capsule by [facility] capsule 00:00: mouth 3 [place] (three) Medical times [facility] daily. rizatriptan 2022-0 Yes [id number] 5mg Take 1 [facility] 5 mg 4-05 tablet by [facility] disintegrat 00:00: mouth as [place] ing tablet 00 needed for [facility] (Take 5mg at the beginning of the headache can repeat 2h after if headaches persists). May repeat in 2 hours if needed magnesium 2022-0 Yes [id number] 400mg Take 2 [facility] gluconate 4-05 tablets by [facility] of 200 mg 00:00: mouth 2 [place] tablet 00 (two) Medical times [facility] daily. gabapentin 2022-0 Yes [id number] 300mg Take 1 [facility] 300 mg 4-05 capsule by [facility] capsule 00:00: mouth 3 [place] (three) Medical times [facility] daily. rizatriptan 2022-0 Yes [id number] 5mg Take 1 [facility] 5 mg 4-05 tablet by [facility] disintegrat 00:00: mouth as [place] ing tablet 00 needed for [facility] (Take 5mg at the beginning of the headache can repeat 2h after if headaches persists). May repeat in 2 hours if needed magnesium 2022-0 Yes [id number] 400mg Take 2 [facility] gluconate 4-05 tablets by [facility] of 200 mg 00:00: mouth 2 [place] tablet 00 (two) Medical times [facility] daily. gabapentin 2022-0 Yes [id number] 300mg Take 1 [facility] 300 mg 4-05 capsule by [facility] capsule 00:00: mouth 3 (three) Medical times [facility] daily. rizatriptan 2022-0 Yes [id number] 5mg Take 1 [facility] 5 mg 4-05 tablet by [facility] disintegrat 00:00: mouth as [place] ing tablet 00 needed for [facility] (Take 5mg at the beginning of the headache can repeat 2h after if headaches persists). May repeat in 2 hours if needed magnesium 2022-0 Yes [id number] 400mg Take 2 [facility] gluconate 4-05 tablets by [facility] of 200 mg 00:00: mouth 2 [place] tablet 00 (two) Medical times [facility] daily. gabapentin 2022-0 Yes [id number] 300mg Take 1 [facility] 300 mg 4-05 capsule by [facility] of capsule 00:00: mouth 3 [place] 00 (three) Medical times [facility] daily. rizatriptan 2022-0 Yes [id number] 5mg Take 1 [facility] 5 mg 4-05 tablet by [facility] disintegrat 00:00: mouth as [place] ing tablet 00 needed for [facility] (Take 5mg at the beginning of the headache can repeat 2h after if headaches persists). May repeat in 2 hours if needed magnesium 2022-0 Yes [id number] 400mg Take 2 [facility] gluconate 4-05 tablets by [facility] of 200 mg 00:00: mouth 2 [place] tablet 00 (two) Medical times [facility] daily. gabapentin 2022-0 Yes [id number] 300mg Take 1 [facility] 300 mg 4-05 capsule by [facility] of capsule 00:00: mouth 3 [place] (three) Medical times [facility] daily. rizatriptan 2022-0 Yes [id number] 5mg Take 1 [facility] 5 mg 4-05 tablet by [facility] disintegrat 00:00: mouth as [place] ing tablet 00 needed for [facility] (Take 5mg at the beginning of the headache can repeat 2h after if headaches persists). May repeat in 2 hours if needed magnesium 2022-0 Yes [id number] 400mg Take 2 [facility] gluconate 4-05 tablets by [facility] of 200 mg 00:00: mouth 2 [place] tablet 00 (two) Medical times [facility] daily. gabapentin 2022-0 Yes [id number] 300mg Take 1 [facility] 300 mg 4-05 capsule by [facility] of capsule 00:00: mouth 3 [place] 00 (three) Medical times [facility] daily. rizatriptan 2022-0 Yes [id number] 5mg Take 1 [facility] 5 mg 4-05 tablet by [facility] disintegrat 00:00: mouth as [place] ing tablet 00 needed for [facility] (Take 5mg at the beginning of the headache can repeat 2h after if headaches persists). May repeat in 2 hours if needed magnesium 2022-0 Yes [id number] 400mg Take 2 [facility] gluconate 4-05 tablets by [facility] of 200 mg 00:00: mouth 2 [place] tablet 00 (two) Medical times [facility] daily. gabapentin 2022-0 Yes [id number] 300mg Take 1 [facility] 300 mg 4-05 capsule by [facility] of capsule 00:00: mouth 3 [place] 00 (three) Medical times [facility] daily. rizatriptan 2022-0 Yes [id number] 5mg Take 1 [facility] 5 mg 4-05 tablet by [facility] disintegrat 00:00: mouth as [place] ing tablet 00 needed for [facility] (Take 5mg at the beginning of the headache can repeat 2h after if headaches persists). May repeat in 2 hours if needed magnesium 2022-0 Yes [id number] 400mg Take 2 [facility] gluconate 4-05 tablets by [facility] of 200 mg 00:00: mouth 2 [place] tablet 00 (two) Medical times [facility] daily. gabapentin 2022-0 Yes [id number] 300mg Take 1 [facility] 300 mg 4-05 capsule by [facility] capsule 00:00: mouth 3 [place] 00 (three) Medical times [facility] daily. rizatriptan 2022-0 Yes [id number] 5mg Take 1 [facility] 5 mg 4-05 tablet by [facility] disintegrat 00:00: mouth as [place] ing tablet 00 needed for [facility] (Take 5mg at the beginning of the headache can repeat 2h after if headaches persists). May repeat in 2 hours if needed magnesium 2022-0 Yes [id number] 400mg Take 2 [facility] gluconate 4-05 tablets by [facility] of 200 mg 00:00: mouth 2 [place] tablet 00 (two) Medical times [facility] daily. gabapentin 2022-0 Yes [id number] 300mg Take 1 [facility] 300 mg 4-05 capsule by [facility] capsule 00:00: mouth 3 [place] 00 (three) Medical times [facility] daily. rizatriptan 2022-0 Yes [id number] 5mg Take 1 [facility] 5 mg 4-05 tablet by [facility] disintegrat 00:00: mouth as [place] ing tablet 00 needed for [facility] (Take 5mg at the beginning of the headache can repeat 2h after if headaches persists). May repeat in 2 hours if needed magnesium 2022-0 Yes [id number] 400mg Take 2 [facility] gluconate 4-05 tablets by [facility] of 200 mg 00:00: mouth 2 [place] tablet 00 (two) Medical times [facility] daily. gabapentin 2022-0 Yes [id number] 300mg Take 1 [facility] 300 mg 4-05 capsule by [facility] of capsule 00:00: mouth 3 [place] 00 (three) Medical times [facility] daily. rizatriptan 2022-0 Yes [id number] 5mg Take 1 [facility] 5 mg 4-05 tablet by [facility] disintegrat 00:00: mouth as [place] ing tablet 00 needed for [facility] (Take 5mg at the beginning of the headache can repeat 2h after if headaches persists). May repeat in 2 hours if needed magnesium 2022-0 Yes [id number] 400mg Take 2 [facility] gluconate 4-05 tablets by [facility] of 200 mg 00:00: mouth 2 [place] tablet 00 (two) Medical times [facility] daily. gabapentin 2022-0 Yes [id number] 300mg Take 1 [facility] 300 mg 4-05 capsule by [facility] of capsule 00:00: mouth 3 [place] (three) Medical times [facility] daily. rizatriptan 2022-0 Yes [id number] 5mg Take 1 [facility] 5 mg 4-05 tablet by [facility] disintegrat 00:00: mouth as [place] ing tablet 00 needed for [facility] (Take 5mg at the beginning of the headache can repeat 2h after if headaches persists). May repeat in 2 hours if needed magnesium 2022-0 Yes [id number] 400mg Take 2 [facility] gluconate 4-05 tablets by [facility] of 200 mg 00:00: mouth 2 [place] tablet 00 (two) Medical times [facility] daily. gabapentin 2022-0 Yes [id number] 300mg Take 1 [facility] 300 mg 4-05 capsule by [facility] of capsule 00:00: mouth 3 (three) Medical times [facility] daily. rizatriptan 2022-0 Yes [id number] 5mg Take 1 [facility] 5 mg 4-05 tablet by [facility] disintegrat 00:00: mouth as [place] ing tablet 00 needed for [facility] (Take 5mg at the beginning of the headache can repeat 2h after if headaches persists). May repeat in 2 hours if needed magnesium 2022-0 Yes [id number] 400mg Take 2 [facility] gluconate 4-05 tablets by [facility] of 200 mg 00:00: mouth 2 [place] tablet 00 (two) Medical times [facility] daily. gabapentin 2022-0 Yes [id number] 300mg Take 1 [facility] 300 mg 4-05 capsule by [facility] of capsule 00:00: mouth 3 [place] 00 (three) Medical times [facility] daily. rizatriptan 2022-0 Yes [id number] 5mg Take 1 [facility] 5 mg 4-05 tablet by [facility] disintegrat 00:00: mouth as [place] ing tablet 00 needed for [facility] (Take 5mg at the beginning of the headache can repeat 2h after if headaches persists). May repeat in 2 hours if needed magnesium 2022-0 Yes [id number] 400mg Take 2 [facility] gluconate 4-05 tablets by [facility] of 200 mg 00:00: mouth 2 [place] tablet 00 (two) Medical times [facility] daily. gabapentin 2022-0 Yes [id number] 300mg Take 1 [facility] 300 mg 4-05 capsule by [facility] of capsule 00:00: mouth 3 [place] 00 (three) Medical times [facility] daily. rizatriptan 2022-0 Yes [id number] 5mg Take 1 [facility] 5 mg 4-05 tablet by [facility] disintegrat 00:00: mouth as [place] ing tablet 00 needed for [facility] (Take 5mg at the beginning of the headache can repeat 2h after if headaches persists). May repeat in 2 hours if needed magnesium 2022-0 Yes [id number] 400mg Take 2 [facility] gluconate 4-05 tablets by [facility] of 200 mg 00:00: mouth 2 [place] tablet 00 (two) Medical times [facility] daily. gabapentin 2022-0 Yes [id number] 300mg Take 1 [facility] 300 mg 4-05 capsule by [facility] of capsule 00:00: mouth 3 [place] (three) Medical times [facility] daily. rizatriptan 2022-0 Yes [id number] 5mg Take 1 [facility] 5 mg 4-05 tablet by [facility] disintegrat 00:00: mouth as [place] ing tablet 00 needed for [facility] (Take 5mg at the beginning of the headache can repeat 2h after if headaches persists). May repeat in 2 hours if needed magnesium 2022-0 Yes [id number] 400mg Take 2 [facility] gluconate 4-05 tablets by [facility] of 200 mg 00:00: mouth 2 [place] tablet 00 (two) Medical times [facility] daily. gabapentin 2022-0 Yes [id number] 300mg Take 1 [facility] 300 mg 4-05 capsule by [facility] of capsule 00:00: mouth 3 [place] (three) Medical times [facility] daily. rizatriptan 2022-0 Yes [id number] 5mg Take 1 [facility] 5 mg 4-05 tablet by [facility] disintegrat 00:00: mouth as [place] ing tablet 00 needed for [facility] (Take 5mg at the beginning of the headache can repeat 2h after if headaches persists). May repeat in 2 hours if needed magnesium 2022-0 Yes [id number] 400mg Take 2 [facility] gluconate 4-05 tablets by [facility] of 200 mg 00:00: mouth 2 [place] tablet 00 (two) Medical times [facility] daily. gabapentin 2022-0 Yes [id number] 300mg Take 1 [facility] 300 mg 4-05 capsule by [facility] of capsule 00:00: mouth 3 [place] 00 (three) Medical times [facility] daily. rizatriptan 2022-0 Yes [id number] 5mg Take 1 [facility] 5 mg 4-05 tablet by [facility] disintegrat 00:00: mouth as [place] ing tablet 00 needed for [facility] (Take 5mg at the beginning of the headache can repeat 2h after if headaches persists). May repeat in 2 hours if needed magnesium 2022-0 Yes [id number] 400mg Take 2 [facility] gluconate 4-05 tablets by [facility] of 200 mg 00:00: mouth 2 [place] tablet 00 (two) Medical times [facility] daily. gabapentin 2022-0 Yes [id number] 300mg Take 1 [facility] 300 mg 4-05 capsule by [facility] of capsule 00:00: mouth 3 [place] 00 (three) Medical times [facility] daily. rizatriptan 2022-0 Yes [id number] 5mg Take 1 [facility] 5 mg 4-05 tablet by [facility] disintegrat 00:00: mouth as [place] ing tablet 00 needed for [facility] (Take 5mg at the beginning of the headache can repeat 2h after if headaches persists). May repeat in 2 hours if needed magnesium 2022-0 Yes [id number] 400mg Take 2 [facility] gluconate 4-05 tablets by [facility] of 200 mg 00:00: mouth 2 [place] tablet 00 (two) Medical times [facility] daily. gabapentin 2022-0 Yes [id number] 300mg Take 1 [facility] 300 mg 4-05 capsule by [facility] of capsule 00:00: mouth 3 [place] 00 (three) Medical times [facility] daily. rizatriptan 2022-0 Yes [id number] 5mg Take 1 [facility] 5 mg 4-05 tablet by [facility] disintegrat 00:00: mouth as [place] ing tablet 00 needed for [facility] (Take 5mg at the beginning of the headache can repeat 2h after if headaches persists). May repeat in 2 hours if needed magnesium 2022-0 Yes [id number] 400mg Take 2 [facility] gluconate 4-05 tablets by [facility] of 200 mg 00:00: mouth 2 [place] tablet 00 (two) Medical times [facility] daily. gabapentin 2022-0 Yes [id number] 300mg Take 1 [facility] 300 mg 4-05 capsule by [facility] of capsule 00:00: mouth 3 [place] 00 (three) Medical times [facility] daily. rizatriptan 2022-0 Yes [id number] 5mg Take 1 [facility] 5 mg 4-05 tablet by [facility] disintegrat 00:00: mouth as [place] ing tablet 00 needed for [facility] (Take 5mg at the beginning of the headache can repeat 2h after if headaches persists). May repeat in 2 hours if needed magnesium 2022-0 Yes [id number] 400mg Take 2 [facility] gluconate 4-05 tablets by [facility] of 200 mg 00:00: mouth 2 [place] tablet 00 (two) Medical times [facility] daily. gabapentin 2022-0 Yes [id number] 300mg Take 1 [facility] 300 mg 4-05 capsule by [facility] of capsule 00:00: mouth 3 [place] 00 (three) Medical times [facility] daily. rizatriptan 2022-0 Yes [id number] 5mg Take 1 [facility] 5 mg 4-05 tablet by [facility] disintegrat 00:00: mouth as [place] ing tablet 00 needed for [facility] (Take 5mg at the beginning of the headache can repeat 2h after if headaches persists). May repeat in 2 hours if needed magnesium 2022-0 Yes [id number] 400mg Take 2 [facility] gluconate 4-05 tablets by [facility] of 200 mg 00:00: mouth 2 [place] tablet 00 (two) Medical times [facility] daily. gabapentin 2022-0 Yes [id number] 300mg Take 1 [facility] 300 mg 4-05 capsule by [facility] of capsule 00:00: mouth 3 [place] 00 (three) Medical times [facility] daily. rizatriptan 2022-0 Yes [id number] 5mg Take 1 [facility] 5 mg 4-05 tablet by [facility] disintegrat 00:00: mouth as [place] ing tablet 00 needed for [facility] (Take 5mg at the beginning of the headache can repeat 2h after if headaches persists). May repeat in 2 hours if needed magnesium 2022-0 Yes [id number] 400mg Take 2 [facility] gluconate 4-05 tablets by [facility] of 200 mg 00:00: mouth 2 [place] tablet 00 (two) Medical times [facility] daily. gabapentin 2022-0 Yes [id number] 300mg Take 1 [facility] 300 mg 4-05 capsule by [facility] of capsule 00:00: mouth 3 [place] (three) Medical times [facility] daily. rizatriptan 2022-0 Yes [id number] 5mg Take 1 [facility] 5 mg 4-05 tablet by [facility] disintegrat 00:00: mouth as [place] ing tablet 00 needed for [facility] (Take 5mg at the beginning of the headache can repeat 2h after if headaches persists). May repeat in 2 hours if needed magnesium 2022-0 Yes [id number] 400mg Take 2 [facility] gluconate 4-05 tablets by [facility] of 200 mg 00:00: mouth 2 [place] tablet 00 (two) Medical times [facility] daily. gabapentin 2022-0 Yes [id number] 300mg Take 1 [facility] 300 mg 4-05 capsule by [facility] of capsule 00:00: mouth 3 [place] (three) Medical times [facility] daily. rizatriptan 2022-0 Yes [id number] 5mg Take 1 [facility] 5 mg 4-05 tablet by [facility] disintegrat 00:00: mouth as [place] ing tablet 00 needed for [facility] (Take 5mg at the beginning of the headache can repeat 2h after if headaches persists). May repeat in 2 hours if needed magnesium 2022-0 Yes [id number] 400mg Take 2 [facility] gluconate 4-05 tablets by [facility] of 200 mg 00:00: mouth 2 [place] tablet 00 (two) Medical times [facility] daily. gabapentin 2022-0 Yes [id number] 300mg Take 1 [facility] 300 mg 4-05 capsule by [facility] of capsule 00:00: mouth 3 [place] (three) Medical times Branch daily. rizatriptan 2022-0 Yes [id number] 5mg Take 1 [facility] 5 mg 4-05 tablet by [facility] disintegrat 00:00: mouth as [place] ing tablet 00 needed for Med ical Migraine Branch (Take 5mg at the beginning of the headache can repeat 2h after if headaches persists). May repeat in 2 hours if needed magnesium 2022-0 Yes [id number] 400mg Take 2 [facility] gluconate 4-05 tablets by [facility] of 200 mg 00:00: mouth 2 [place] tablet 00 (two) Medical times Branch daily. gabapentin 2022-0 Yes [id number] 300mg Take 1 [facility] 300 mg 4-05 capsule by [facility] of capsule 00:00: mouth 3 [place] (three) Medical times Branch daily. rizatriptan 2022-0 Yes [id number] 5mg Take 1 [facility] 5 mg 4-05 tablet by [facility] disintegrat 00:00: mouth as [place] tablet 00 needed for Med ical Migraine Branch (Take 5mg at the beginning of the headache can repeat 2h after if headaches persists). May repeat in 2 hours if needed magnesium 2022-0 Yes [id number] 400mg Take 2 [facility] gluconate 4-05 tablets by [facility] of 200 mg 00:00: mouth 2 [place] tablet 00 (two) Medical times Branch daily. gabapentin 2022-0 Yes [id number] 300mg Take 1 [facility] 300 mg 4-05 capsule by [facility] of capsule 00:00: mouth 3 [place] 00 (three) Medical times Branch daily. rizatriptan 2022-0 Yes [id number] 5mg Take 1 [facility] 5 mg 4-05 tablet by [facility] disintegrat 00:00: mouth as [place] tablet 00 needed for Med ical Migraine Branch (Take 5mg at the beginning of the headache can repeat 2h after if headaches persists). May repeat in 2 hours if needed magnesium 2022-0 Yes [id number] 400mg Take 2 [facility] gluconate 4-05 tablets by [facility] of 200 mg 00:00: mouth 2 [place] tablet 00 (two) Medical times Branch daily. gabapentin 2022-0 Yes [id number] 300mg Take 1 [facility] 300 mg 4-05 capsule by [facility] of capsule 00:00: mouth 3 [place] 00 (three) Medical times Branch daily. rizatriptan 2022-0 Yes [id number] 5mg Take 1 [facility] 5 mg 4-05 tablet by [facility] disintegrat 00:00: mouth as [place] tablet 00 needed for Med ical Migraine Branch (Take 5mg at the beginning of the headache can repeat 2h after if headaches persists). May repeat in 2 hours if needed magnesium 2022-0 Yes [id number] 400mg Take 2 [facility] gluconate 4-05 tablets by [facility] of 200 mg 00:00: mouth 2 [place] tablet 00 (two) Medical times Branch daily. gabapentin 2022-0 Yes [id number] 300mg Take 1 [facility] 300 mg 4-05 capsule by [facility] of capsule 00:00: mouth 3 [place] 00 (three) Medical times Branch daily. rizatriptan 2022-0 Yes [id number] 5mg Take 1 [facility] 5 mg 4-05 tablet by [facility] disintegrat 00:00: mouth as [place] tablet 00 needed for Med ical Migraine Branch (Take 5mg at the beginning of the headache can repeat 2h after if headaches persists). May repeat in 2 hours if needed magnesium 2022-0 Yes [id number] 400mg Take 2 [facility] gluconate 4-05 tablets by [facility] of 200 mg 00:00: mouth 2 [place] tablet 00 (two) Medical times Branch daily. gabapentin 2022-0 Yes [id number] 300mg Take 1 [facility] 300 mg 4-05 capsule by [facility] of capsule 00:00: mouth 3 [place] 00 (three) Medical times Branch daily. rizatriptan 2022-0 Yes [id number] 5mg Take 1 [facility] 5 mg 4-05 tablet by [facility] disintegrat 00:00: mouth as [place] tablet 00 needed for Med ical Migraine Branch (Take 5mg at the beginning of the headache can repeat 2h after if headaches persists). May repeat in 2 hours if needed magnesium 2022-0 Yes [id number] 400mg Take 2 [facility] gluconate 4-05 tablets by [facility] of 200 mg 00:00: mouth 2 [place] tablet 00 (two) Medical times Branch daily. gabapentin 2022-0 Yes [id number] 300mg Take 1 [facility] 300 mg 4-05 capsule by [facility] of capsule 00:00: mouth 3 [place] 00 (three) Medical times Branch daily. rizatriptan 2022-0 Yes [id number] 5mg Take 1 [facility] 5 mg 4-05 tablet by [facility] disintegrat 00:00: mouth as [place] tablet 00 needed for Med ical Migraine Branch (Take 5mg at the beginning of the headache can repeat 2h after if headaches persists). May repeat in 2 hours if needed magnesium 2022-0 Yes [id number] 400mg Take 2 [facility] gluconate 4-05 tablets by [facility] of 200 mg 00:00: mouth 2 [place] tablet 00 (two) Medical times Branch daily. gabapentin 2022-0 Yes [id number] 300mg Take 1 [facility] 300 mg 4-05 capsule by [facility] of capsule 00:00: mouth 3 [place] 00 (three) Medical times Branch daily. rizatriptan 2021-0 Yes [id number] 5mg Take 1 [facility] 5 mg 4-05 tablet by [facility] disintegrat 00:00: mouth as [place] tablet 00 needed for Med ical Migraine Branch (Take 5mg at the beginning of the headache can repeat 2h after if headaches persists). May repeat in 2 hours if needed magnesium 2021-0 Yes [id number] 400mg Take 2 [facility] gluconate 4-05 tablets by [facility] of 200 mg 00:00: mouth 2 [place] tablet 00 (two) Medical times Branch daily. gabapentin 2021-0 2022- No [id number] 300mg Take 1 [facility] 300 mg 4-05 - capsule by [facility] of capsule 00:00: 00:00 mouth 3 [place] 00 :00 (three) Medical times Branch daily. rizatriptan 2021-0 3- No [id number] 5mg Take 1 [facility] 5 mg 4-05 - tablet by [facility] of disintegrat 00:00: 00:00 mouth as [place] ing tablet 00 :00 needed for Med ical Migraine Branch (Take 5mg at the beginning of the headache can repeat 2h after if headaches persists). May repeat in 2 hours if needed magnesium 2021-0 3- No [id number] 400mg Take 2 [facility] gluconate 4-05 09-22 tablets by [facility] of 200 mg 00:00: 00:00 mouth 2 [place] tablet 00 :00 (two) Medical times Branch daily. gabapentin 2021-0 3- No [id number] 300mg Take 1 [facility] 300 mg 4-05 -22 capsule by [facility] of capsule 00:00: 00:00 mouth 3 [place] 00 :00 (three) Medical times Branch daily. rizatriptan 2021-0 3- No [id number] 5mg Take 1 [facility] 5 mg 4-05 09-22 tablet by [facility] of disintegrat 00:00: 00:00 mouth as [place] ing tablet 00 :00 needed for Med ical Migraine Branch (Take 5mg at the beginning of the headache can repeat 2h after if headaches persists). May repeat in 2 hours if needed magnesium 2021-0 3- No [id number] 400mg Take 2 [facility] gluconate 4-05 09-22 tablets by [facility] of 200 mg 00:00: 00:00 mouth 2 [place] tablet 00 :00 (two) Medical times Branch daily. gabapentin 2021-2022- No [id number] 300mg Take 1 [facility] 300 mg 4-06 20- capsule by [facility] of capsule 00:00: 00:00 mouth 3 [place] 00 :00 (three) Medical times Branch daily. rizatriptan 2021-0 2022- No [id number] 5mg Take 1 [facility] 5 mg 4-06 20-22 tablet by [facility] of disintegrat 00:00: 00:00 mouth as [place] ing tablet 00 :00 needed for Med ical Migraine Branch (Take 5mg at the beginning of the headache can repeat 2h after if headaches persists). May repeat in 2 hours if needed magnesium 2021-0 2022- No [id number] 400mg Take 2 [facility] gluconate 4-06 20- tablets by [facility] of 200 mg 00:00: 00:00 mouth 2 [place] tablet 00 :00 (two) Medical times Branch daily. gabapentin 2021-2022- No [id number] 300mg Take 1 [facility] 300 mg 4-06 20- capsule by [facility] of capsule 00:00: 00:00 mouth 3 [place] 00 :00 (three) Medical times Branch daily. rizatriptan 2021-2022- No [id number] 5mg Take 1 [facility] 5 mg 4-06 20- tablet by [facility] of disintegrat 00:00: 00:00 mouth as [place] ing tablet 00 :00 needed for Med ical Migraine Branch (Take 5mg at the beginning of the headache can repeat 2h after if headaches persists). May repeat in 2 hours if needed magnesium 2021-2022- No [id number] 400mg Take 2 [facility] gluconate 4-06 20-22 tablets by [facility] of 200 mg 00:00: 00:00 mouth 2 [place] tablet 00 :00 (two) Medical times Branch daily. gabapentin 2021-2022- No [id number] 300mg Take 1 [facility] 300 mg 4-06 20- capsule by [facility] of capsule 00:00: 00:00 mouth 3 [place] 00 :00 (three) Medical times Branch daily. rizatriptan 2021-0 2022- No [id number] 5mg Take 1 [facility] 5 mg 4-05 -22 tablet by [facility] of disintegrat 00:00: 00:00 mouth as [place] tablet 00 :00 needed for Med ical Migraine Branch (Take 5mg at the beginning of the headache can repeat 2h after if headaches persists). May repeat in 2 hours if needed magnesium 2021-0 2022- No [id number] 400mg Take 2 [facility] gluconate 4-06 20-22 tablets by [facility] of 200 mg 00:00: 00:00 mouth 2 [place] tablet 00 :00 (two) Medical times Branch daily. gabapentin 2021-2022- No [id number] 300mg Take 1 [facility] 300 mg 4-06 20- capsule by [facility] of capsule 00:00: 00:00 mouth 3 [place] 00 :00 (three) Medical times Branch daily. rizatriptan 2021-2022- No [id number] 5mg Take 1 [facility] 5 mg 4-06 20- tablet by [facility] of disintegrat 00:00: 00:00 mouth as [place] tablet 00 :00 needed for Med ical Migraine Branch (Take 5mg at the beginning of the headache can repeat 2h after if headaches persists). May repeat in 2 hours if needed magnesium 2021-2022- No [id number] 400mg Take 2 [facility] gluconate 4-06 20- tablets by [facility] of 200 mg 00:00: 00:00 mouth 2 [place] tablet 00 :00 (two) Medical times Branch daily. gabapentin 2021-2022- No [id number] 300mg Take 1 [facility] 300 mg -11-03 capsule by [facility] of capsule 00:00: 00:00 mouth 3 [place] 00 :00 (three) Medical times Branch daily. rizatriptan 2022- No [id number] 5mg Take 1 [facility] 5 mg 4-06 20-22 tablet by [facility] of disintegrat 00:00: 00:00 mouth as [place] tablet 00 :00 needed for Med ical Migraine Branch (Take 5mg at the beginning of the headache can repeat 2h after if headaches persists). May repeat in 2 hours if needed magnesium 2021-2022- No [id number] 400mg Take 2 [facility] gluconate 4-06 20-22 tablets by [facility] of 200 mg 00:00: 00:00 mouth 2 [place] tablet 00 :00 (two) Medical times Branch daily. gabapentin 2021-2022- No [id number] 300mg Take 1 [facility] 300 mg 4-06 20- capsule by [facility] of capsule 00:00: 00:00 mouth 3 [place] 00 :00 (three) Medical times Branch daily. rizatriptan 2021-2022- No [id number] 5mg Take 1 [facility] 5 mg 4-06 20- tablet by [facility] of disintegrat 00:00: 00:00 mouth as [place] ing tablet 00 :00 needed for Med ical Migraine Branch (Take 5mg at the beginning of the headache can repeat 2h after if headaches persists). May repeat in 2 hours if needed magnesium 2021-2022- No [id number] 400mg Take 2 [facility] gluconate 4-06 20- tablets by [facility] of 200 mg 00:00: 00:00 mouth 2 [place] tablet 00 :00 (two) Medical times Branch daily. gabapentin 2021-2022- No [id number] 300mg Take 1 [facility] 300 mg 4-06 20- capsule by [facility] of capsule 00:00: 00:00 mouth 3 [place] 00 :00 (three) Medical times Branch daily. rizatriptan 2021-2022- No [id number] 5mg Take 1 [facility] 5 mg 4-06 20- tablet by [facility] of disintegrat 00:00: 00:00 mouth as [place] ing tablet 00 :00 needed for Med ical Migraine Branch (Take 5mg at the beginning of the headache can repeat 2h after if headaches persists). May repeat in 2 hours if needed magnesium 2021-2022- No [id number] 400mg Take 2 [facility] gluconate 4-06 20- tablets by [facility] of 200 mg 00:00: 00:00 mouth 2 [place] tablet 00 :00 (two) Medical times Branch daily. gabapentin 2021-2022- No [id number] 300mg Take 1 [facility] 300 mg 4-06 20- capsule by [facility] of capsule 00:00: 00:00 mouth 3 [place] 00 :00 (three) Medical times Branch daily. rizatriptan 2021-2022- No [id number] 5mg Take 1 [facility] 5 mg 4-06 20-22 tablet by [facility] of disintegrat 00:00: 00:00 mouth as [place] tablet 00 :00 needed for Med ical Migraine Branch (Take 5mg at the beginning of the headache can repeat 2h after if headaches persists). May repeat in 2 hours if needed magnesium 2022- No [id number] 400mg Take 2 [facility] gluconate 4-05 -22 tablets by [facility] of 200 mg 00:00: 00:00 mouth 2 [place] tablet 00 :00 (two) Medical times Branch daily. artificial 2021- No [id number] 1[drp] Place 1 [facility] tears,hypro 4- 05-11 Drop in [facility] of [place], 00:00: 00:[place] 0.5 % 00 :00 as needed Medical ophthalmic for Dry Branch drops eyes. artificial 2021- No [id number] 1[drp] Place 1 [facility] tears,hypro 4-05 05-11 Drop in [facility] of [place], 00:00: 00:00 [place] 0.5 % 00 :00 as needed Medical ophthalmic for Dry Branch drops eyes. clonazePAM 2021- No [id number] Take no [facility] 1 mg tablet 05-12 more than it y of 00:00: 00:00 1 mg twice [place] 00 :00 daily as Medical needed for Branch anxiety clonazePAM 2021- No [id number] Take no [facility] 1 mg tablet 05-12 more than it y of 00:00: 00:00 1 mg twice [place] 00 :00 daily as Medical needed for Branch anxiety lithium 600 2021- No [id number] 600mg Take 1 [facility] mg capsule 05-11- capsule by it y of 00:00: 00:00 mouth 2 [place] 00 :00 (two) Medical times Branch daily. lithium 600 2021- No [id number] 600mg Take 1 [facility] mg capsule 05-11- capsule by it y of 00:00: 00:00 mouth 2 [place] 00 :00 (two) Medical times Branch daily. ondansetron Yes [id number] 4mg Take 1 [facility] (ZOFRAN 7-22 tablet by ity of ODT) 4 mg 00:00: mouth [place] disintegrat 00 every 8 Medic al ing tablet (eight) Branch hours as needed for Nausea and Vomiting (N/V). ondansetron Yes [id number] 4mg Take 1 [facility] (ZOFRAN 7-22 tablet by ity of ODT) 4 mg 00:00: mouth [place] disintegrat 00 every 8 Medic al ing tablet (eight) Branch hours as needed for Nausea and Vomiting (N/V). ondansetron 2020-0 Yes [id number] 4mg Take 1 [facility] (ZOFRAN 7-22 tablet by ity of ODT) 4 mg 00:00: mouth [place] disintegrat 00 every 8 Medic al ing tablet (eight) Branch hours as needed for Nausea and Vomiting (N/V). ondansetron 2020-0 Yes [id number] 4mg Take 1 [facility] (ZOFRAN 7-22 tablet by ity of ODT) 4 mg 00:00: mouth [place] disintegrat 00 every 8 Medic al ing tablet (eight) Branch hours as needed for Nausea and Vomiting (N/V). ondansetron 2020-0 Yes [id number] 4mg Take 1 [facility] (ZOFRAN 7-22 tablet by ity of ODT) 4 mg 00:00: mouth [place] disintegrat 00 every 8 Medic al ing tablet (eight) Branch hours as needed for Nausea and Vomiting (N/V). ondansetron 2020-0 Yes [id number] 4mg Take 1 [facility] (ZOFRAN 7-22 tablet by ity of ODT) 4 mg 00:00: mouth [place] disintegrat 00 every 8 Medic al ing tablet (eight) Branch hours as needed for Nausea and Vomiting (N/V). ondansetron 2020-0 Yes [id number] 4mg Take 1 [facility] (ZOFRAN 7-22 tablet by ity of ODT) 4 mg 00:00: mouth [place] disintegrat 00 every 8 Medic al ing tablet (eight) Branch hours as needed for Nausea and Vomiting (N/V). ondansetron 2020-0 Yes [id number] 4mg Take 1 [facility] (ZOFRAN 7-22 tablet by ity of ODT) 4 mg 00:00: mouth [place] disintegrat 00 every 8 Medic al ing tablet (eight) Branch hours as needed for Nausea and Vomiting (N/V). ondansetron 2020-0 Yes [id number] 4mg Take 1 [facility] (ZOFRAN 7-22 tablet by ity of ODT) 4 mg 00:00: mouth [place] disintegrat 00 every 8 Medic al ing tablet (eight) Branch hours as needed for Nausea and Vomiting (N/V). ondansetron 2020-0 Yes [id number] 4mg Take 1 [facility] (ZOFRAN 7-22 tablet by ity of ODT) 4 mg 00:00: mouth [place] disintegrat 00 every 8 Medic al ing tablet (eight) Branch hours as needed for Nausea and Vomiting (N/V). ondansetron 2020-0 Yes [id number] 4mg Take 1 [facility] (ZOFRAN 7-22 tablet by ity of ODT) 4 mg 00:00: mouth [place] disintegrat 00 every 8 Medic al ing tablet (eight) Branch hours as needed for Nausea and Vomiting (N/V). ondansetron 2020-0 Yes [id number] 4mg Take 1 [facility] (ZOFRAN 7-22 tablet by ity of ODT) 4 mg 00:00: mouth [place] disintegrat 00 every 8 Medic al ing tablet (eight) Branch hours as needed for Nausea and Vomiting (N/V). ondansetron 2020-0 Yes [id number] 4mg Take 1 [facility] (ZOFRAN 7-22 tablet by ity of ODT) 4 mg 00:00: mouth [place] disintegrat 00 every 8 Medic al ing tablet (eight) Branch hours as needed for Nausea and Vomiting (N/V). ondansetron 2020-0 Yes [id number] 4mg Take 1 [facility] (ZOFRAN 7-22 tablet by ity of ODT) 4 mg 00:00: mouth [place] disintegrat 00 every 8 Medic al ing tablet (eight) Branch hours as needed for Nausea and Vomiting (N/V). ondansetron 2020-0 Yes [id number] 4mg Take 1 [facility] (ZOFRAN 7-22 tablet by ity of ODT) 4 mg 00:00: mouth [place] disintegrat 00 every 8 Medic al ing tablet (eight) Branch hours as needed for Nausea and Vomiting (N/V). ondansetron 1-0 Yes [id number] 4mg Take 1 [facility] (ZOFRAN 7-22 tablet by ity of ODT) 4 mg 00:00: mouth [place] disintegrat 00 every 8 Medic al ing tablet (eight) Branch hours as needed for Nausea and Vomiting (N/V). ondansetron 2020-0 Yes [id number] 4mg Take 1 [facility] (ZOFRAN 7-22 tablet by ity of ODT) 4 mg 00:00: mouth [place] disintegrat 00 every 8 Medic al ing tablet (eight) Branch hours as needed for Nausea and Vomiting (N/V). ondansetron 1-0 Yes [id number] 4mg Take 1 [facility] (ZOFRAN 7-22 tablet by ity of ODT) 4 mg 00:00: mouth [place] disintegrat 00 every 8 Medic al ing tablet (eight) Branch hours as needed for Nausea and Vomiting (N/V). ondansetron 2020-0 Yes [id number] 4mg Take 1 [facility] (ZOFRAN 7-22 tablet by ity of ODT) 4 mg 00:00: mouth [place] disintegrat 00 every 8 Medic al ing tablet (eight) Branch hours as needed for Nausea and Vomiting (N/V). ondansetron 2020-0 Yes [id number] 4mg Take 1 [facility] (ZOFRAN 7-22 tablet by ity of ODT) 4 mg 00:00: mouth [place] disintegrat 00 every 8 Medic al ing tablet (eight) Branch hours as needed for Nausea and Vomiting (N/V). ondansetron 2020-0 Yes [id number] 4mg Take 1 [facility] (ZOFRAN 7-22 tablet by ity of ODT) 4 mg 00:00: mouth [place] disintegrat 00 every 8 Medic al ing tablet (eight) Branch hours as needed for Nausea and Vomiting (N/V). ondansetron 2020-0 Yes [id number] 4mg Take 1 [facility] (ZOFRAN 7-22 tablet by ity of ODT) 4 mg 00:00: mouth [place] disintegrat 00 every 8 Medic al ing tablet (eight) Branch hours as needed for Nausea and Vomiting (N/V). ondansetron 1-0 Yes [id number] 4mg Take 1 [facility] (ZOFRAN 7-22 tablet by ity of ODT) 4 mg 00:00: mouth [place] disintegrat 00 every 8 Medic al ing tablet (eight) Branch hours as needed for Nausea and Vomiting (N/V). ondansetron 2021-0 Yes [id number] 4mg Take 1 [facility] (ZOFRAN 7-22 tablet by ity of ODT) 4 mg 00:00: mouth [place] disintegrat 00 every 8 Medic al ing tablet (eight) Branch hours as needed for Nausea and Vomiting (N/V). ondansetron 2020-0 Yes [id number] 4mg Take 1 [facility] (ZOFRAN 7-22 tablet by ity of ODT) 4 mg 00:00: mouth [place] disintegrat 00 every 8 Medic al ing tablet (eight) Branch hours as needed for Nausea and Vomiting (N/V). ondansetron 2020-0 Yes [id number] 4mg Take 1 [facility] (ZOFRAN 7-22 tablet by ity of ODT) 4 mg 00:00: mouth [place] disintegrat 00 every 8 Medic al ing tablet (eight) Branch hours as needed for Nausea and Vomiting (N/V). ondansetron 2020-0 Yes [id number] 4mg Take 1 [facility] (ZOFRAN 7-22 tablet by ity of ODT) 4 mg 00:00: mouth [place] disintegrat 00 every 8 Medic al ing tablet (eight) Branch hours as needed for Nausea and Vomiting (N/V). ondansetron 2020-0 Yes [id number] 4mg Take 1 [facility] (ZOFRAN 7-22 tablet by ity of ODT) 4 mg 00:00: mouth [place] disintegrat 00 every 8 Medic al ing tablet (eight) Branch hours as needed for Nausea and Vomiting (N/V). ondansetron 2020-0 Yes [id number] 4mg Take 1 [facility] (ZOFRAN 7-22 tablet by ity of ODT) 4 mg 00:00: mouth [place] disintegrat 00 every 8 Medic al ing tablet (eight) Branch hours as needed for Nausea and Vomiting (N/V). ondansetron 2020-0 Yes [id number] 4mg Take 1 [facility] (ZOFRAN 7-22 tablet by ity of ODT) 4 mg 00:00: mouth [place] disintegrat 00 every 8 Medic al ing tablet (eight) Branch hours as needed for Nausea and Vomiting (N/V). ondansetron 2020-0 Yes [id number] 4mg Take 1 [facility] (ZOFRAN 7-22 tablet by ity of ODT) 4 mg 00:00: mouth [place] disintegrat 00 every 8 Medic al ing tablet (eight) Branch hours as needed for Nausea and Vomiting (N/V). ondansetron 2020-0 Yes [id number] 4mg Take 1 [facility] (ZOFRAN 7-22 tablet by ity of ODT) 4 mg 00:00: mouth [place] disintegrat 00 every 8 Medic al ing tablet (eight) Branch hours as needed for Nausea and Vomiting (N/V). ondansetron 2021-0 Yes [id number] 4mg Take 1 [facility] (ZOFRAN 7-22 tablet by ity of ODT) 4 mg 00:00: mouth [place] disintegrat 00 every 8 Medic al ing tablet (eight) Branch hours as needed for Nausea and Vomiting (N/V). ondansetron 2020-0 Yes [id number] 4mg Take 1 [facility] (ZOFRAN 7-22 tablet by ity of ODT) 4 mg 00:00: mouth [place] disintegrat 00 every 8 Medic al ing tablet (eight) Branch hours as needed for Nausea and Vomiting (N/V). ondansetron 2020-0 Yes [id number] 4mg Take 1 [facility] (ZOFRAN 7-22 tablet by ity of ODT) 4 mg 00:00: mouth [place] disintegrat 00 every 8 Medic al ing tablet (eight) Branch hours as needed for Nausea and Vomiting (N/V). ondansetron 2020-0 Yes [id number] 4mg Take 1 [facility] (ZOFRAN 7-22 tablet by ity of ODT) 4 mg 00:00: mouth [place] disintegrat 00 every 8 Medic al ing tablet (eight) Branch hours as needed for Nausea and Vomiting (N/V). ondansetron 2020-0 Yes [id number] 4mg Take 1 [facility] (ZOFRAN 7-22 tablet by ity of ODT) 4 mg 00:00: mouth [place] disintegrat 00 every 8 Medic al ing tablet (eight) Branch hours as needed for Nausea and Vomiting (N/V). ondansetron 2020-0 Yes [id number] 4mg Take 1 [facility] (ZOFRAN 7-22 tablet by ity of ODT) 4 mg 00:00: mouth [place] disintegrat 00 every 8 Medic al ing tablet (eight) Branch hours as needed for Nausea and Vomiting (N/V). ondansetron 1-0 Yes [id number] 4mg Take 1 [facility] (ZOFRAN 7-22 tablet by ity of ODT) 4 mg 00:00: mouth [place] disintegrat 00 every 8 Medic al ing tablet (eight) Branch hours as needed for Nausea and Vomiting (N/V). ondansetron 1-0 Yes [id number] 4mg Take 1 [facility] (ZOFRAN 7-22 tablet by ity of ODT) 4 mg 00:00: mouth [place] disintegrat 00 every 8 Medic al ing tablet (eight) Branch hours as needed for Nausea and Vomiting (N/V). ondansetron 1-0 Yes [id number] 4mg Take 1 [facility] (ZOFRAN 7-22 tablet by ity of ODT) 4 mg 00:00: mouth [place] disintegrat 00 every 8 Medic al ing tablet (eight) Branch hours as needed for Nausea and Vomiting (N/V). ondansetron 2020-0 Yes [id number] 4mg Take 1 [facility] (ZOFRAN 7-22 tablet by ity of ODT) 4 mg 00:00: mouth [place] disintegrat 00 every 8 Medic al ing tablet (eight) Branch hours as needed for Nausea and Vomiting (N/V). ondansetron 1-0 Yes [id number] 4mg Take 1 [facility] (ZOFRAN 7-22 tablet by ity of ODT) 4 mg 00:00: mouth [place] disintegrat 00 every 8 Medic al ing tablet (eight) Branch hours as needed for Nausea and Vomiting (N/V). ondansetron 2020-0 Yes [id number] 4mg Take 1 [facility] (ZOFRAN 7-22 tablet by ity of ODT) 4 mg 00:00: mouth [place] disintegrat 00 every 8 Medic al ing tablet (eight) Branch hours as needed for Nausea and Vomiting (N/V). ondansetron 1-0 Yes [id number] 4mg Take 1 [facility] (ZOFRAN 7-22 tablet by ity of ODT) 4 mg 00:00: mouth [place] disintegrat 00 every 8 Medic al ing tablet (eight) Branch hours as needed for Nausea and Vomiting (N/V). ondansetron 1-0 Yes [id number] 4mg Take 1 [facility] (ZOFRAN 7-22 tablet by ity of ODT) 4 mg 00:00: mouth [place] disintegrat 00 every 8 Medic al ing tablet (eight) Branch hours as needed for Nausea and Vomiting (N/V). ondansetron 2021-0 Yes [id number] 4mg Take 1 [facility] (ZOFRAN 7-22 tablet by ity of ODT) 4 mg 00:00: mouth [place] disintegrat 00 every 8 Medic al ing tablet (eight) Branch hours as needed for Nausea and Vomiting (N/V). ondansetron 2020-0 Yes [id number] 4mg Take 1 [facility] (ZOFRAN 7-22 tablet by ity of ODT) 4 mg 00:00: mouth [place] disintegrat 00 every 8 Medic al ing tablet (eight) Branch hours as needed for Nausea and Vomiting (N/V). ondansetron 2020-0 Yes [id number] 4mg Take 1 [facility] (ZOFRAN 7-22 tablet by ity of ODT) 4 mg 00:00: mouth [place] disintegrat 00 every 8 Medic al ing tablet (eight) Branch hours as needed for Nausea and Vomiting (N/V). ondansetron 2020-0 Yes [id number] 4mg Take 1 [facility] (ZOFRAN 7-22 tablet by ity of ODT) 4 mg 00:00: mouth [place] disintegrat 00 every 8 Medic al ing tablet (eight) Branch hours as needed for Nausea and Vomiting (N/V). ondansetron 2020-0 Yes [id number] 4mg Take 1 [facility] (ZOFRAN 7-22 tablet by ity of ODT) 4 mg 00:00: mouth [place] disintegrat 00 every 8 Medic al ing tablet (eight) Branch hours as needed for Nausea and Vomiting (N/V). ondansetron 2020-0 Yes [id number] 4mg Take 1 [facility] (ZOFRAN 7-22 tablet by ity of ODT) 4 mg 00:00: mouth [place] disintegrat 00 every 8 Medic al ing tablet (eight) Branch hours as needed for Nausea and Vomiting (N/V). ondansetron 2020-0 Yes [id number] 4mg Take 1 [facility] (ZOFRAN 7-22 tablet by ity of ODT) 4 mg 00:00: mouth [place] disintegrat 00 every 8 Medic al ing tablet (eight) Branch hours as needed for Nausea and Vomiting (N/V). ondansetron 2020-0 Yes [id number] 4mg Take 1 [facility] (ZOFRAN 7-22 tablet by ity of ODT) 4 mg 00:00: mouth [place] disintegrat 00 every 8 Medic al ing tablet (eight) Branch hours as needed for Nausea and Vomiting (N/V). ondansetron 2020-0 Yes [id number] 4mg Take 1 [facility] (ZOFRAN 7-22 tablet by ity of ODT) 4 mg 00:00: mouth [place] disintegrat 00 every 8 Medic al ing tablet (eight) Branch hours as needed for Nausea and Vomiting (N/V). ondansetron 1-0 Yes [id number] 4mg Take 1 [facility] (ZOFRAN 7-22 tablet by ity of ODT) 4 mg 00:00: mouth [place] disintegrat 00 every 8 Medic al ing tablet (eight) Branch hours as needed for Nausea and Vomiting (N/V). ondansetron 2020-0 Yes [id number] 4mg Take 1 Univers (ZOFRAN 7-22 tablet by ity of ODT) 4 mg 00:00: mouth [place] disintegrat 00 every 8 Medic al ing tablet (eight) Branch hours as needed for Nausea and Vomiting (N/V). ondansetron 2020-0 Yes [id number] 4mg Take 1 [facility] (ZOFRAN 7-22 tablet by ity of ODT) 4 mg 00:00: mouth [place] disintegrat 00 every 8 Medic al ing tablet (eight) Branch hours as needed for Nausea and Vomiting (N/V). ondansetron 2020-0 Yes [id number] 4mg Take 1 [facility] (ZOFRAN 7-22 tablet by ity of ODT) 4 mg 00:00: mouth [place] disintegrat 00 every 8 Medic al ing tablet (eight) Branch hours as needed for Nausea and Vomiting (N/V). ondansetron 2020-0 3- No [id number] 4mg Take 1 [facility] (ZOFRAN 7-22 09-22 tablet by ity of ODT) 4 mg 00:00: 00:00 mouth [place] disintegrat 00 :00 every 8 Medic al ing tablet (eight) Branch hours as needed for Nausea and Vomiting (N/V). ondansetron 2021-0 2023- No [id number] 4mg Take 1 [facility] (ZOFRAN 7-22 09-22 tablet by ity of ODT) 4 mg 00:00: 00:00 mouth [place] disintegrat 00 :00 every 8 Medic al ing tablet (eight) Branch hours as needed for Nausea and Vomiting (N/V). ondansetron 2021-0 2023- No [id number] 4mg Take 1 [facility] (ZOFRAN 7-22 09-22 tablet by ity of ODT) 4 mg 00:00: 00:00 mouth [place] disintegrat 00 :00 every 8 Medic al ing tablet (eight) Branch hours as needed for Nausea and Vomiting (N/V). ondansetron 2021-0 2023- No [id number] 4mg Take 1 [facility] (ZOFRAN 7-22 09-22 tablet by ity of ODT) 4 mg 00:00: 00:00 mouth [place] disintegrat 00 :00 every 8 Medic al ing tablet (eight) Branch hours as needed for Nausea and Vomiting (N/V). ondansetron 2021-0 2023- No [id number] 4mg Take 1 [facility] (ZOFRAN 7-22 09-22 tablet by ity of ODT) 4 mg 00:00: 00:00 mouth [place] disintegrat 00 :00 every 8 Medic al ing tablet (eight) Branch hours as needed for Nausea and Vomiting (N/V). ondansetron 2021-0 3- No [id number] 4mg Take 1 [facility] (ZOFRAN 7-22 09-22 tablet by ity of ODT) 4 mg 00:00: 00:00 mouth [place] disintegrat 00 :00 every 8 Medic al ing tablet (eight) Branch hours as needed for Nausea and Vomiting (N/V). ondansetron 2021-0 3- No [id number] 4mg Take 1 [facility] (ZOFRAN 7-22 09-22 tablet by ity of ODT) 4 mg 00:00: 00:00 mouth [place] disintegrat 00 :00 every 8 Medic al ing tablet (eight) Branch hours as needed for Nausea and Vomiting (N/V). ondansetron 2021-0 2023- No [id number] 4mg Take 1 [facility] (ZOFRAN 7-22 09-22 tablet by ity of ODT) 4 mg 00:00: 00:00 mouth [place] disintegrat 00 :00 every 8 Medic al ing tablet (eight) Branch hours as needed for Nausea and Vomiting (N/V). ondansetron 2021-0 2023- No [id number] 4mg Take 1 [facility] (ZOFRAN 7-22 09-22 tablet by ity of ODT) 4 mg 00:00: 00:00 mouth [place] disintegrat 00 :00 every 8 Medic al ing tablet (eight) Branch hours as needed for Nausea and Vomiting (N/V). ondansetron 2022- No [id number] 4mg Take 1 [facility] (ZOFRAN 09-02 tablet by ity of ODT) 4 mg 00:00: 00:00 mouth [place] disintegrat 00 :00 every 8 Medic al ing tablet (eight) Branch hours as needed for Nausea and Vomiting (N/V). butalbital- 2021- No [id number] 1{tbl} Take 1 [facility] acetaminoph -03 07-11 tablet by it y of en-caff 00:00: 00:00 mouth [place] 50-325-40 00 :00 every 6 Medical mg tablet (six) Branch hours as needed for Pain (scale 7-10). butalbital- 2021- No [id number] 1{tbl} Take 1 [facility] acetaminoph -03 07-11 tablet by it y of en-caff 00:00: 00:00 mouth [place] 50-325-40 00 :00 every 6 Medical mg tablet (six) Branch hours as needed for Pain (scale 7-10). allopurinoL 2020-0 Yes 100mg Take 100 U nivers 100 mg 6-24 mg by ity of tablet 13:17: mouth [place] [address] daily. Medical Branch atorvastati 2020-0 Yes 10mg Take 10 mg Univers n 10 mg 6-24 by mouth ity of tablet 13:17: at [place] [address] bedtime. Medical Branch allopurinoL 2020-0 Yes 100mg Take 100 U nivers 100 mg 6-24 mg by ity of tablet 13:17: mouth [place] [address] daily. Medical Branch atorvastati 2020-0 Yes 10mg Take 10 mg Univers n 10 mg 6-24 by mouth ity of tablet 13:17: at [place] [address] bedtime. Medical Branch allopurinoL 2020-0 Yes 100mg Take 100 U nivers 100 mg 6-24 mg by ity of tablet 13:17: mouth [place] 52 daily. Medical Branch atorvastati 2020-0 Yes 10mg Take 10 mg Univers n 10 mg 6-24 by mouth ity of tablet 13:17: at [place] [address] bedtime. Medical Branch allopurinoL 2020-0 Yes 100mg Take 100 U nivers 100 mg 6-24 mg by ity of tablet 13:17: mouth [place] 52 daily. Medical Branch atorvastati 2020-0 Yes [...] by mouth ity of tablet 13:17: at [place] [address] bedtime. Medical Branch allopurinoL 2020-0 Yes 100mg Take 100 U nivers 100 mg 6-24 mg by ity of tablet 13:17: mouth [place] 52 daily. Medical Branch atorvastati 2020-0 Yes 10mg Take 10 mg Univers n 10 mg 6-24 by mouth ity of tablet 13:17: at [place] [address] bedtime. Medical Branch allopurinoL 2020-0 Yes 100mg [...] by mouth ity of tablet 13:17: at [place] [address] bedtime. Medical Branch allopurinoL 2020-0 Yes 100mg [...] by mouth ity of tablet 13:17: at [place] [address] bedtime. Medical Branch allopurinoL 2020-0 Yes 100mg Take 100 U nivers 100 mg 6-24 mg by ity of tablet 13:17: mouth [place] 52 daily. Medical Branch atorvastati 2020-0 Yes 10mg Take 10 mg Univers n 10 mg 6-24 by mouth ity of tablet 13:17: at [place] [address] bedtime. Medical Branch allopurinoL 2020-0 Yes 100mg Take 100 U nivers 100 mg 6-24 mg by ity of tablet 13:17: mouth [place] 52 daily. Medical Branch atorvastati 2020-0 Yes 10mg Take 10 mg Univers n 10 mg 6-24 by mouth ity of tablet 13:17: at [place] [address] bedtime. Medical Branch allopurinoL 2020-0 Yes 100mg [...] by mouth ity of tablet 13:17: at [place] [address] bedtime. Medical Branch allopurinoL 2020-0 Yes 100mg Take 100 U nivers 100 mg 6-24 mg by ity of tablet 13:17: mouth [place] 52 daily. Medical Branch atorvastati 2020-0 Yes 10mg Take 10 mg Univers n 10 mg 6-24 by mouth ity of tablet 13:17: at [place] [address] bedtime. Medical Branch allopurinoL 2020-0 Yes 100mg Take 100 U nivers 100 mg 6-24 mg by ity of tablet 13:17: mouth [place] 52 daily. Medical Branch atorvastati 2020-0 Yes 10mg Take 10 mg Univers n 10 mg 6-24 by mouth ity of tablet 13:17: at [place] [address] bedtime. Medical Branch allopurinoL 2020-0 Yes 100mg Take 100 U nivers 100 mg 6-24 mg by ity of tablet 13:17: mouth [place] 52 daily. Medical Branch atorvastati 2020-0 Yes 10mg Take 10 mg Univers n 10 mg 6-24 by mouth ity of tablet 13:17: at [place] [address] bedtime. Medical Branch allopurinoL 2020-0 Yes 100mg Take 100 U nivers 100 mg 6-24 mg by ity of tablet 13:17: mouth [place] 52 daily. Medical Branch atorvastati 2020-0 Yes 10mg Take 10 mg Univers n 10 mg 6-24 by mouth ity of tablet 13:17: at [place] [address] bedtime. Medical Branch allopurinoL 2020-0 Yes 100mg Take 100 U nivers 100 mg 6-24 mg by ity of tablet 13:17: mouth [place] 52 daily. Medical Branch atorvastati 2020-0 Yes 10mg Take 10 mg Univers n 10 mg 6-24 by mouth ity of tablet 13:17: at [place] [address] bedtime. Medical Branch allopurinoL 2020-0 Yes 100mg Take 100 U nivers 100 mg 6-24 mg by ity of tablet 13:17: mouth [place] 52 daily. Medical Branch atorvastati 2020-0 Yes 10mg Take 10 mg Univers n 10 mg 6-24 by mouth ity of tablet 13:17: at [place] [address] bedtime. Medical Branch allopurinoL 2020-0 Yes 100mg Take 100 U nivers 100 mg 6-24 mg by ity of tablet 13:17: mouth [place] 52 daily. Medical Branch atorvastati 2020-0 Yes 10mg Take 10 mg Univers n 10 mg 6-24 by mouth ity of tablet 13:17: at [place] [address] bedtime. Medical Branch allopurinoL 2020-0 Yes 100mg [...] by mouth ity of tablet 13:17: at [place] [address] bedtime. Medical Branch allopurinoL 2020-0 Yes 100mg Take 100 U nivers 100 mg 6-24 mg by ity of tablet 13:17: mouth [place] 52 daily. Medical Branch atorvastati 2020-0 Yes 10mg Take 10 mg Univers n 10 mg 6-24 by mouth ity of tablet 13:17: at [place] [address] bedtime. Medical Branch allopurinoL 2020-0 Yes 100mg Take 100 U nivers 100 mg 6-24 mg by ity of tablet 13:17: mouth [place] 52 daily. Medical Branch atorvastati 2020-0 Yes 10mg Take 10 mg Univers n 10 mg 6-24 by mouth ity of tablet 13:17: at [place] [address] bedtime. Medical Branch allopurinoL 2020-0 Yes 100mg Take 100 U nivers 100 mg 6-24 mg by ity of tablet 13:17: mouth [place] 52 daily. Medical Branch atorvastati 2020-0 Yes 10mg Take 10 mg Univers n 10 mg 6-24 by mouth ity of tablet 13:17: at [place] [address] bedtime. Medical Branch allopurinoL 2020-0 Yes 100mg Take 100 U nivers 100 mg 6-24 mg by ity of tablet 13:17: mouth [place] 52 daily. Medical Branch atorvastati 2020-0 Yes 10mg Take 10 mg Univers n 10 mg 6-24 by mouth ity of tablet 13:17: at [place] [address] bedtime. Medical Branch allopurinoL 2020-0 Yes 100mg [...] by mouth ity of tablet 13:17: at [place] [address] bedtime. Medical Branch allopurinoL 2020-0 Yes 100mg Take 100 U nivers 100 mg 6-24 mg by ity of tablet 13:17: mouth [place] 52 daily. Medical Branch atorvastati 2020-0 Yes 10mg Take 10 mg Univers n 10 mg 6-24 by mouth ity of tablet 13:17: at [place] [address] bedtime. Medical Branch allopurinoL 2020-0 Yes 100mg [...] by mouth ity of tablet 13:17: at [place] [address] bedtime. Medical Branch allopurinoL 2020-0 Yes 100mg [...] by mouth ity of tablet 13:17: at [place] [address] bedtime. Medical Branch allopurinoL 2020-0 Yes 100mg Take 100 U nivers 100 mg 6-24 mg by ity of tablet 13:17: mouth [place] 52 daily. Medical Branch atorvastati 2020-0 Yes 10mg Take 10 mg Univers n 10 mg 6-24 by mouth ity of tablet 13:17: at [place] [address] bedtime. Medical Branch allopurinoL 2020-0 Yes 100mg Take 100 U nivers 100 mg 6-24 mg by ity of tablet 13:17: mouth [place] 52 daily. Medical Branch atorvastati 2020-0 Yes 10mg Take 10 mg Univers n 10 mg 6-24 by mouth ity of tablet 13:17: at [place] [address] bedtime. Medical Branch allopurinoL 2020-0 Yes 100mg Take 100 U nivers 100 mg 6-24 mg by ity of tablet 13:17: mouth [place] 52 daily. Medical Branch atorvastati 2020-0 Yes 10mg Take 10 mg Univers n 10 mg 6-24 by mouth ity of tablet 13:17: at [place] [address] bedtime. Medical Branch allopurinoL 2020-0 Yes 100mg Take 100 U nivers 100 mg 6-24 mg by ity of tablet 13:17: mouth [place] 52 daily. Medical Branch atorvastati 2020-0 Yes 10mg Take 10 mg Univers n 10 mg 6-24 by mouth ity of tablet 13:17: at [place] [address] bedtime. Medical Branch allopurinoL 2020-0 Yes 100mg [...] 13:17: mouth [place] 52 daily. Medical Branch allopurinoL 2020-0 Yes 100mg Take 100 U nivers 100 mg 6-24 mg by ity of tablet 13:17: mouth [place] 52 daily. Medical Branch allopurinoL 2020-0 Yes 100mg Take 100 U nivers 100 mg 6-24 mg by ity of tablet 13:17: mouth [place] 52 daily. Medical Branch allopurinoL 2020-0 Yes 100mg Take 100 U nivers 100 mg 6-24 mg by ity of tablet 13:17: mouth [place] 52 daily. Medical Branch allopurinoL 2020-0 Yes 100mg Take 100 U nivers 100 mg 6-24 mg by ity of tablet 13:17: mouth [place] 52 daily. Medical Branch allopurinoL 2020-0 Yes 100mg Take 100 U nivers 100 mg 6-24 mg by ity of tablet 13:17: mouth [place] 52 daily. Medical Branch propranolol 2020-0 Yes 80mg Take [...] (two) [place] 38 times Medical daily. Branch Vital Signs Vital Name Observation Time Observation Value Comments Source Systolic blood 2022-11-13 117 mm[Hg] University of pressure 14:08:00 [facility] Diastolic blood 2022-11-13 70 mm[Hg] University o f pressure 14:08:00 [facility] Heart rate 2022-11-13 64 /min University 14:08:00 [facility] Respiratory rate 2022-11-13 12 /min University 14:08:00 [facility] Oxygen saturation 2022-11-13 99 /min [facility] in Arterial blood 14:08:[address] [facility] by Pulse oximetry [place] Body temperature 2022-11-13 36.39 Verna University of 13:38:00 [facility] Body height 2022-11-13 167.6 cm University of 12:15:00 [facility] Body weight 2022-11-13 95.21 kg University of 12:15:00 [facility] BMI 2022-11-13 33.88 kg/m2 University of 12:15:00 [facility] Systolic blood 2022-11-13 142 mm[Hg] University of pressure 12:15:00 [facility] Diastolic blood 2022-11-13 66 mm[Hg] University o f pressure 12:15:00 [facility] Heart rate 2022-11-13 77 /min University of 12:15:00 [place] [facility] Branch Body temperature 2022-11-13 36 Verna University of 12:15:00 [facility] [place] Branch Respiratory rate 2022-11-13 21 /min University of 12:15:00 [facility] [place] Branch Body height 2022-11-13 167.6 cm University of 12:15:00 [facility] [place] Branch Body weight 2022-11-13 95.21 kg University of 12:15:00 [facility] [place] Branch BMI 2022-11-13 33.88 kg/m2 University of 12:15:00 [facility] [place] Branch Oxygen saturation 2022-11-13 95 /min University of in Arterial blood 12:15:00 [facility] rogelio by Pulse oximetry Branch Systolic blood 2022-11-03 154 mm[Hg] University of pressure 15:35:00 [facility] [place] Branch Diastolic blood 2022-11-03 86 mm[Hg] University o f pressure 15:35:00 [facility] Heart rate 2022-11-03 86 /min University of 15:35:00 [facility] Body temperature 2022-11-03 37 Verna University of 15:35:00 [facility] [place] Branch Respiratory rate 2022-11-03 18 /min University of 15:35:00 [facility] [place] Branch Body height 2022-11-03 167.6 cm University of 15:35:00 [facility] Body weight 2022-11-03 97.523 kg University of 15:35:00 [facility] BMI 2022-11-03 34.70 kg/m2 University of 15:35:00 [facility] Oxygen saturation 2022-11-03 99 /min University of in Arterial blood 15:35:00 [facility] rogelio by Pulse oximetry Branch Systolic blood 2022-10-19 159 mm[Hg] Provider University of pressure 12:35:00 Notified [facility] [place] Branch Diastolic blood 2022-10-19 85 mm[Hg] Provider University o f pressure 12:35:00 Notified [facility] Heart rate 2022-10-19 94 /min University of 12:35:00 [facility] Body temperature 2022-10-19 36.78 Verna University of 12:33:00 [facility] [place] Branch Respiratory rate 2022-10-19 16 /min University of 12:33:00 [facility] [place] Branch Body height 2022-10-19 167.6 cm University of 12:33:00 [facility] Body weight 2022-10-19 96.616 kg University of 12:33:00 [facility] [place] Branch BMI 2022-10-19 34.38 kg/m2 University of 12:33:00 [facility] [place] Branch Oxygen saturation 2022-10-19 98 /min University of in Arterial blood 12:33:00 [facility] rogelio by Pulse oximetry Branch Systolic blood 2022-11-13 117 mm[Hg] University of pressure 14:08:00 [facility] [place] Branch Diastolic blood 2022-11-13 70 mm[Hg] University o f pressure 14:08:00 [facility] [place] Branch Heart rate 2022-11-13 64 /min University of 14:08:00 [facility] [place] Branch Respiratory rate 2022-11-13 12 /min University of 14:08:00 [facility] Oxygen saturation 2022-11-13 99 /min University of in Arterial blood 14:08:00 [place] Medi rogelio by Pulse oximetry Branch Body temperature 2022-11-13 36.39 Verna University of 13:38:00 [facility] Body height 2022-11-13 167.6 cm University of 12:15:00 [facility] Body weight 2022-11-13 95.21 kg University of 12:15:00 [facility] BMI 2022-11-13 33.88 kg/m2 University of 12:15:00 [facility] Systolic blood 2022-11-03 154 mm[Hg] University of pressure 15:35:00 [facility] [place] Branch Diastolic blood 2022-11-03 86 mm[Hg] University o f pressure 15:35:00 [facility] Heart rate 2022-11-03 86 /min University of 15:35:00 [facility] Body temperature 2022-11-03 37 Verna University of 15:35:00 [facility] [place] Branch Respiratory rate 2022-11-03 18 /min University of 15:35:00 [facility] Body height 2022-11-03 167.6 cm University of 15:35:00 [facility] Body weight 2022-11-03 97.523 kg University of 15:35:00 [facility] BMI 2022-11-03 34.70 kg/m2 University of 15:35:00 [facility] Oxygen saturation 2022-11-03 99 /min University of in Arterial blood 15:35:00 [place] Medi rogelio by Pulse oximetry Branch Systolic blood 2022-10-04 149 mm[Hg] University of pressure 14:26:00 [facility] [place] Branch Diastolic blood 2022-10-04 76 mm[Hg] University o f pressure 14:26:00 [facility] [place] Branch Heart rate 2022-10-04 78 /min University of 14:26:00 [facility] [place] Branch Respiratory rate 2022-10-04 18 /min University of 14:21:00 [facility] [place] Branch Body height 2022-10-04 167.6 cm University of 14:21:00 [facility] [place] Branch Body weight 2022-10-04 96.843 kg University of 14:21:00 [facility] [place] Branch BMI 2022-10-04 34.46 kg/m2 University of 14:21:00 [facility] Systolic blood 2022-07-26 135 mm[Hg] University of pressure 13:22:00 [facility] [place] Branch Diastolic blood 2022-07-26 78 mm[Hg] University o f pressure 13:22:00 [facility] Heart rate 2022-07-26 85 /min University of 13:22:00 [facility] [place] Branch Respiratory rate 2022-07-26 18 /min University of 13:22:00 [facility] [place] Branch Body height 2022-07-26 167.6 cm University of 13:22:00 [facility] Body weight 2022-07-26 97.523 kg University of 13:22:00 [facility] BMI 2022-07-26 34.70 kg/m2 University of 13:22:00 [facility] Systolic blood 2022-02-15 131 mm[Hg] University of pressure 14:59:00 [facility] Diastolic blood 2022-02-15 70 mm[Hg] University o f pressure 14:59:00 [facility] Heart rate 2022-02-15 81 /min University of 14:59:00 [facility] [place] Branch Respiratory rate 2022-02-15 18 /min University of 14:59:00 [facility] [place] Branch Body height 2022-02-15 167.6 cm University of 14:59:00 [facility] [place] Branch Body weight 2022-02-15 102.967 kg University of 14:59:00 [facility] [place] Branch BMI 2022-02-15 36.64 kg/m2 University of 14:59:00 [facility] [place] Branch Respiratory rate 2022-01-11 18 /min University of 17:11:00 [facility] [place] Branch Body height 2022-01-11 167.6 cm University of 17:11:00 [facility] Body weight 2022-01-11 100.699 kg University of 17:11:00 [facility] BMI 2022-01-11 35.83 kg/m2 University of 17:11:00 [facility] Systolic blood 2021-08-24 133 mm[Hg] University of pressure 14:24:00 [facility] Diastolic blood 2021-08-24 73 mm[Hg] [place] o f pressure 14:24:00 [facility] Heart rate 2021-08-24 69 /min University of 14:24:00 [facility] Respiratory rate 2021-08-24 18 /min University 14:24:00 [facility] Body height 2021-08-24 167.6 cm University 14:24:00 [facility] Body weight 2021-08-24 100.245 kg University 14:24:00 [facility] BMI 2021-08-24 35.67 kg/m2 University 14:24:00 [facility] Oxygen saturation 2021-06-07 96 /min [facility] in Arterial blood 15:30:[address] [facility] by Pulse oximetry [place] Body temperature 2021-06-07 37.44 Verna [facility] 14:20:30 [facility] Procedures Procedure Date / Time Performing Source Performed Clinician SURGICAL PATHOLOGY EXAM 2022-11-13 Dominic Keita [facility] of 13:05:00 [facility] ESOPHAGOGASTRODUODENOSCOPY 2022-11-13 [facility] 12:47:00 [facility]OSCOPY 2022-11-13 [facility] 12[facility]47:00 [facility] ESOPHAGOGASTRODUODENOSCOPY 2022-11-13 [facility] 12:47:00 [facility] COLONOSCOPY 2022-11-13 [facility] of 12:47:00 [facility] COLONOSCOPY (ENDO) 2022-11-13 Jae Holloway [place] of 12:28:53 [facility] COLONOSCOPY (ENDO) 2022-11-13 Jae Holloway [place] of 12:28:53 [facility] COLONOSCOPY (ENDO) 2022-11-13 Jae Holloway [place] of 12:28:53 [facility] EGD (ENDO) 2022-11-13 Jew[place], [facility] of 12:19:29 [facility] EGD (ENDO) 2022-11-13 [facility] of 12:19:29 [facility] EGD (ENDO) 2022-11-13 [facility] of 12:19:29 [facility] CONSENT/REFUSAL FOR DIAGNOSIS AND 2022-11-13 [facility] 12:17:09 Unassigned, No [facility] [place] Name [place] CONSENT/REFUSAL FOR DIAGNOSIS AND 2022-11-13 [facility] 12:17:09 Unassigned, No [place] [facility] Name Branch ASSIGNMENT OF BENEFITS 2022-11-13 Doctor [facility] y of 11:59:03 Unassigned, No [place] [facility] Name Branch ASSIGNMENT OF BENEFITS 2022-11-13 Doctor [facility] of 11:59:03 Unassigned, No [facility] [place] Name Branch ENDOSCOPY PROCEDURE DOCUMENTATION 2022-11-13 [facility] 05:01:00 Unassigned, No [place] [facility] Name Branch ENDOSCOPY PROCEDURE DOCUMENTATION 2022-11-13 [facility] 05:01:00 Unassigned, No [facility] COMP. METABOLIC PANEL ([id number]) 2022-11-03 [facility] 16:24:00 [facility] CBC WITH DIFF 2022-11-03 Dora Newman [facility] 16:24:00 [facility] POCT TEST 2022-11-03 Dora Newman [facility] 16:24:00 [facility] CBC WITH DIFF 2022-11-03 Dora Newman [facility] 16:24:00 [facility] POCT TEST 2022-11-03 Dora Newman [facility] 16:24:00 [facility] COMP. METABOLIC PANEL ([id number]) 2022-11-03 [facility] 16:24:00 [facility] URINALYSIS 2022-11-03 Dora Newman [facility] 16:18:00 [facility] URINALYSIS 2022-11-03 oDra Newman [facility] 16:18:00 [facility] RAPID STREP SCREEN FOR GROUP A 2022-11-03 Dora Newman [facility] 16:14:00 [facility] RAPID STREP SCREEN FOR GROUP A 2022-11-03 Dora Newman [facility] 16:14:00 [facility] THROAT CULTURE 2022-11-03 Dora Newman [facility] 16:14:00 [facility] CONSENT/REFUSAL FOR DIAGNOSIS AND 2022-11-03 [facility] TREATMENT 15:27:05 Unassigned, No [facility] CONSENT/REFUSAL FOR DIAGNOSIS AND 2022-11-03 [facility] TREATMENT 15:27:05 Unassigned, No [facility] EMERGENCY SERVICES AGREEMENTS AND 2022-11-03 [facility] of AUTHORIZATIONS 05:01:00 Unassigned, No [facility] HELICOBACTER PYLORI ANTIGEN, FECAL 2022-10-19 [facility] of BY EIA 13:44:00 [facility] HELICOBACTER PYLORI ANTIGEN, FECAL 2022-10-19 [facility] BY EIA 13:44:00 [facility] FERRITIN SERUM 2022-10-19 [facility] of 13:35:00 [facility] IRON PANEL 2022-10-19 [facility] of 13:35:00 [facility] CELIAC SCREEN 2022-10-19 [facility] of 13:35:00 [facility] LAB ONLY CELIAC SCREEN IGA 2022-10-19 [facility] ersity of 13:35:00 [facility] IRON PANEL 2022-10-19 [facility] of 13:35:00 [facility] CELIAC SCREEN 2022-10-19 [facility] of 13:35:00 [facility] FERRITIN SERUM 2022-10-19 [facility] of 13:35:00 [facility] LAB ONLY CELIAC SCREEN IGA 2022-10-19 [facility] ersity of 13:35:00 [facility] DISCLOSURE AND CONSENT, [facility] 2022-10-19 [facility] of AND SURGICAL PROCEDURES 05:01:00 Unassigned, No [facility] DISCLOSURE AND CONSENT, [facility] 2022-10-19 [facility] of AND SURGICAL PROCEDURES 05:01:00 Unassigned, No [facility] dical Name Branch REFERRAL- REQUEST/RESPONSE 2022-10-12 Doctor Unive rsity of 05:01:00 Unassigned, No [facility] REFERRAL- REQUEST/RESPONSE 2022-10-12 Doctor Crowe rsity of 05:01:00 Unassigned, No [facility] THYROID STIMULATING HORMONE 2022-10-05 Rosalind Freed Uni versity of 15:15:00 [facility] COMP. METABOLIC PANEL (46070) 2022-10-05 Rosalind Freed U niversity of 15:15:00 [facility] LIPID PANEL (13703)(TOTAL 2022-10-05 Rosalind Freede rsity of CHOLESTEROL, TRIGLYCERIDES, HDL) 15:15:00 [facility] LITHIUM 2022-10-05 [facility] 15:15:00 [facility] CBC WITH DIFF 2022-10-05 Rosalind Freed of 15:15:00 [facility] GLYCOSYLATED HEMOGLOBIN (A1C) 2022-10-05 Abdiaziz, Rosalind U niversity of 15:15:00 [facility] CBC WITH DIFF 2022-10-05 Abdiaizz, Rosalind [place] of 15:15:00 [facility] [place] [facility] COMP. METABOLIC PANEL (56561) 2022-10-05 Rosalind Freed U niversity of 15:15:00 [facility] GLYCOSYLATED HEMOGLOBIN (A1C) 2022-10-05 Rosalind Freed U niversity of 15:15:00 [facility] LIPID PANEL (04585)(TOTAL 2022-10-05 Rosalind Freed rsity of CHOLESTEROL, TRIGLYCERIDES, HDL) 15:15:00 [facility] THYROID STIMULATING HORMONE 2022-10-05 Rosalind Freed Uni versity of 15:15:00 [facility] [place] [facility] LITHIUM 2022-10-05 Kacie [facility] of 15:15:00 [facility] [place] [facility] ASSIGNMENT OF BENEFITS 2022-10-04 Doctor Universit y of 14:17:30 Unassigned, No [place] [facility] ASSIGNMENT OF BENEFITS 2022-10-04 Doctor Universit y of 14:17:30 Unassigned, No [place] [facility] LITHIUM 2022-07-26 Chu [facility] of 14:49:00 [facility] PATIENT FINANCIAL POLICY 2022-07-26 Doctor Un iversity of 13:16:12 Unassigned, No [place] [facility] PATIENT FINANCIAL POLICY 2022-07-26 Doctor Un iversity of 13:16:12 Unassigned, No [place] [facility] EXTERNAL PROVIDER RECORDS 2022-04-08 Doctor Univer sity of 06:01:00 Unassigned, No [facility] EXTERNAL PROVIDER RECORDS 2022-04-08 Doctor Univer sity of 06:01:00 Unassigned, No [facility] EXTERNAL PROVIDER RECORDS 2022-02-21 Doctor Univer sity of 06:01:00 Unassigned, No [place] [facility] EXTERNAL PROVIDER RECORDS 2022-02-21 Doctor Univer sity of 06:01:00 Unassigned, No [facility] LITHIUM 2022-02-15 Chu [facility] of 15:58:00 [facility] CONSENT/REFUSAL FOR DIAGNOSIS AND 2022-01-11 Doctor [facility] 17:10:16 Unassigned, No [place] [facility] CONSENT/REFUSAL FOR DIAGNOSIS AND 2022-01-11 Doctor [facility] 17:10:16 Unassigned, No [place] [facility] EXTERNAL PROVIDER RECORDS 2020-11-26 Doctor Univer sity of 05:01:00 Unassigned, No [place] [facility] Encounters Start End Encounter Admission Attending Care Care Encounter Source Date/Time Date/Time Type Type Clinicians Facility Department ID 2020-12-13 Emergency [facility] [id number] Univers 10:09:54 ity of [facility] 2020-12-11 Emergency [facility] [id number] Univers 04:02:45 ity of [facility] 2022-12-29 2022-12-29 Outpatient R JENNY ARRIAGA [facility] 10 [id number] Univers 09:30:00 09:30:00 JENNY ARRIAGA i ty of [facility] 2022-12-29 2022-12-29 Telephone VanessakarlMORENO 1.2.840.114 10 [id number] Univers 00:00:00 00:00:00 [facility] 350.1.13.10 ity of [facility] [place] [id number] [facility] 071 Branch 2022-12-20 2022-12-20 Outpatient R [facility] [id number] Univers 16:00:00 16:46:31 ity of [facility] 2022-12-20 2022-12-20 Outpatient SFA [facility] [id number] Robert 09:49:08 09:49:08 1108 F Viraj 2022-12-19 2022-12-19 Travel 1.2.840.1 1.2.122.389 [id number] Univers 00:00:00 00:00:00 15638.1.1 350.1.13.10 ity of 3.104.2.7 [place].3.698 [place]3.15[place]28 084.8 Med[place] .8 [place] 2022-12-18 2022-12-18 Outpatient R [facility] [id number] Univers 09:30:00 09:30:00 ity of [facility] 2022-12-18 2022-12-18 Telephone [facility], [facility] 1.2.840.114 10 [id number] Univers 00:00:00 00:00:00 [facility] 350.1.13.10 ity of [facility] [place] [id number] [facility] 071 [place] 2022-12-14 2022-12-14 Patient Doctor 1.2.840.6 [id number] Univers 00:00:00 00:00:00 Secure Msg Unassigned, 49012.1.1 ity of [place] 3.104.2.7 [place] .3.393407 Medica l .8 [place] 2022-12-11 2022-12-11 Outpatient R [facility] [id number] Univers 08:45:00 08:45:00 ity of [facility] 2022-12-10 2022-12-10 Outpatient GC_GCBZW_Ka PRIV PRIV [id number] [facility] 00:00:00 00:00:00 diyala_S [id number] Medic al 2022-12-08 2022-12-08 Outpatient R JENNY ARRIAGA [facility] [id number] Univers 15:30:00 15:30:00 JENNY ARRIAGA i ty of [facility] 2022-12-06 2022-12-06 Outpatient R RUBÉN, [facility] [id number] Univers 08:00:00 08:00:00 AIHAM ity of [facility] 2022-11-29 2022-11-29 Telephone Muftah, 1.2.840.0 [id number] Univers 00:00:00 00:00:00 Abdullah 46473.1.1 ity of [place] 3.104.2.7 [place] .3.273976 Medica l .8 Branch 2022-11-27 2022-11-27 Telephone Muftah, 1.2.840.3 [id number] Univers 00:00:00 00:00:00 Abdullah 96055.1.1 ity of [place] 3.104.2.7 [place] .3.413093 Medica l .8 Branch 2022-11-27 2022-11-27 Telephone Muftah, 1.2.840.8 [id number] Univers 00:00:00 00:00:00 Abdullah 89286.1.1 ity of [place] 3.104.2.7 [place] .3.940121 Medica l .8 Branch 2022-11-23 2022-11-23 Telephone Muftah, 1.2.840.9 [id number] Univers 00:00:00 00:00:00 Abdullah 36457.1.1 ity of [place] 3.104.2.7 [place] .3.773456 Medica l .8 Branch 2022-11-23 2022-11-23 Telephone Muftah, 1.2.840.4 [id number] 107 [id number] Univers 00:00:00 00:00:00 Abdullah 51555.1.1 ity of [place] 3.104.2.7 [place] .3.268575 Medica [place] .8 [place] 2022-11-22 2022-11-22 Outpatient R [facility] [id number] Univers 09:30:00 09:30:00 ity of [facility] 2022-11-16 2022-11-16 Telephone Muftah, 1.2.840.8 [id number] Univers 00:00:00 00:00:00 Abdullkarl 64855.1.1 ity of [place] 3.104.2.7 [place] .3.164898 Medica l .8 Branch 2022-11-16 2022-11-16 Patient Bossman [facility] 1.2.840.114 10 [id number] Univers 00:00:00 00:00:00 Secure Msg Dominic Y HEALTH 350.1.13.10 ity of [place].2.[place] [id number] Medi rogelio 071 Branch 2022-11-13 2022-11-13 Out[facility] [id number] Univers 06:59:00 09:48:00 DOMINIC ity of [facility] 2022-11-13 2022-11-13 [facility], 1.2.840.2 [id number] Univers 06:59:00 09:48:00 Encounter Dominic 61924.1.1 it y of 3.104.2.7 [place] .3.488380 Medica l .8 Branch 2022-11-13 2022-11-13 Anesthesia Hunter Cruz 1.2.840.1 [id number] Univers 07:58:00 08:33:00 Event Ting Grissom 90209.1.1 i ty of 3.104.2.7 [place] .3.658732 Medica l .8 Branch 2022-11-13 2022-11-13 Surgery [facility], 1.2.840.1 [id number] Univers 07:15:00 08:15:00 Dominic 66611.1.1 ity of 3.104.2.7 [place] .3.354974 Medica l .8 Branch 2022-11-13 2022-11-13 Orders Doctor 1.2.840.9 [id number] Univers 00:00:00 00:00:00 Only Unassigned, 98985.1.1 ity of [place] 3.104.2.7 [place] .3.286612 Medica l .8 Branch 2022-11-13 2022-11-13 Telephone Parvy, [facility] 1.2.840.114 [id number] Univers 00:00:00 00:00:00 Dominic ICAL 350.1.13.10 it y of SCIENCES 4.2.7.2.686 Iam as BLDG 348.7564689 Medi rogelio 020 [place] 2022-11-13 2022-11-13 Travel 1.2.840.1 1.2.947.648 [id number] [id number] Univers 00:00:00 00:00:00 30819.1.1 350.1.13.10 ity of 3.104.2.7 4.[place].7.3.698 [place] .3.719633 084.8 Medica l .8 [place] 2022-11-10 2022-11-10 Outpatient R RADIOLOGY [facility] [id number] Univers 00:00:00 00:00:00 ity of [facility] 2022-11-10 2022-11-10 Patient Parupelizabeth, 1.2.840.7 [id number] Univers 00:00:00 00:00:00 Secure Msg Dominic 63997.1.1 i ty of 3.104.2.7 [place] .3.415468 Medica l .8 [place] 2022-11-09 2022-11-09 Patient Doctor 1.2.840.2 [id number] Univers 00:00:00 00:00:00 Secure Msg Unassigned, 91706.1.1 ity of [place] 3.104.2.7 [place] .3.625485 Medica l .8 [place] 2022-11-07 2022-11-07 Patient Doctor 1.2.840.0 [id number] Univers 00:00:00 00:00:00 Secure Msg Unassigned, 25990.1.1 ity of [place] 3.104.2.7 [place] .3.459768 Medica l .8 [place] 2022-11-03 2022-11-03 Emergency X TRENT [facility] ERT [id number] Univers 10:36:00 13:16:00 DORA ity of [facility] 2022-11-03 2022-11-03 Emergency Drever, 1.2.840.3 [id number] Univers 10:36:00 13:16:00 Dora Pope 95342.1.1 ity of 3.104.2.7 [place] .3.734213 Medica l .8 Branch 2022-11-03 2022-11-03 Travel 1.2.840.1 1.2.577.259 [id number] [id number] Univers 00:00:00 00:00:00 60304.1.1 350.1.13.10 ity of 3.104.2.7 4.2.7.3.698 [place] .3.214987 084.8 Medica l .8 Branch 2022-10-30 2022-10-30 Case Consuelo, 1.2.840.0 [id number] Univers 00:00:00 00:00:00 Management Elidia 15237.1.1 ity of [place] 3.104.2.7 [place] .3.814282 Medica l .8 [place] 2022-10-19 2022-10-19 Swaging Machine Adjuster Jewel Lindsey 1.2.840.1 1 [id number] Univers 08:30:00 08:45:00 Visit [facility] 89082.1.1 ity of 3.104.2.7 [place] .3.738516 Medica l .8 [place] 2022-10-19 2022-10-19 Outpatient R GUERLINE [facility] [id number] Univers 07:30:00 08:15:30 JEWEL itdl of [facility] 2022-10-19 2022-10-19 Office Jewel Lindsey 1.2.840.1 [id number] Univers 07:30:00 08:15:30 Visit Sharona Corderoklarissakarl Eagleraven 50299.1.1 ity of 3.104.2.7 [place] .3.037279 Medica l .8 Branch 2022-10-19 2022-10-19 Orders Doctor 1.2.840.0 [id number] Univers 00:00:00 00:00:00 Only Unassigned, 19561.1.1 ity of [place] 3.104.2.7 [place] .3.990199 Medica l .8 [place] 2022-10-18 2022-10-18 Travel 1.2.840.1 1.2.986.402 [id number] [id number] Univers 00:00:00 00:00:00 40280.1.1 350.1.13.10 ity of 3.104.2.7 4.2.7.3.698 [place] .3.872519 084.8 Medica l .8 [place] 2022-10-12 2022-10-12 Outpatient SFA [facility] [id number] Robert 09:56:06 09:56:06 0831 F Viraj 2022-10-12 2022-10-12 Orders Doctor 1.2.840.7 [id number] Univers 00:00:00 00:00:00 Only Unassigned, 87416.1.1 ity of [place] 3.104.2.7 [place] .3.076327 Medica l .8 [place] 2022-10-05 2022-10-05 Swaging Machine Adjuster Kath Parra 1.2.840.6 [id number] Univers 10:15:00 10:30:00 Visit Kimberly, [facility] 49865.1.1 ity of 3.104.2.7 [place] .3.467993 Medica l .8 [place] 2022-10-05 2022-10-05 Outpatient R AIDA [facility] [id number] Univers 10:15:00 10:15:00 KATH wesley of [facility] 2022-10-04 2022-10-04 Outpatient R LARISSA, [facility] [id number] Univers 09:30:00 10:30:11 DERRELL bricey o f [facility] 2022-10-04 2022-10-04 Orders Doctor 1.2.840.1 [id number] Univers 00:00:00 00:00:00 Only Unassigned, 18905.1.1 ity of [place] 3.104.2.7 [place] .3.787747 Medica l .8 [place] 2022-10-04 2022-10-04 Travel 1.2.840.1 1.2.450.653 [id number] Univers 00:00:00 00:00:00 14282.1.1 350.1.13.10 ity of 3.104.2.7 4.2.7.3.698 [place] .3.240083 084.8 Medica l .8 [place] 2022-10-02 2022-10-02 Travel 1.2.840.1 1.2.200.565 [id number] [facility] [place] [facility] 00:00:00 00:00:00 32285.1.1 350.1.13.10 ity of 3.104.2.7 4.2.7.3.698 [place] .3.993070 084.8 Medica l .8 [place] 2022-09-06 2022-09-06 Outpatient SARA DELGADILLO [facility] [id number] [facility] [place] [facility] 08:45:00 08:45:00 SARA OKEEFE [facility] 2022-09-06 2022-09-06 Travel 1.2.840.1 1.2.958.895 [id number] [id number] Univers 00:00:00 00:00:00 17850.1.1 350.1.13.10 ity of 3.104.2.7 4.2.7.3.698 [place] .3.228878 084.8 Medica l .8 [place] 2022-07-26 2022-07-26 Swaging Machine Adjuster Pathology 1.2.840.3 [id number] Univers 11:00:00 11:15:00 Visit Pcp-Lab 86951.1.1 ity of 3.104.2.7 [place] .3.561861 Medica l .8 [place] 2022-07-26 2022-07-26 Outpatient SUKHJINDER DELGADILLOBERLY [facility] [id number] [facility] [place] [facility] 08:45:00 09:37:46 SARA OKEEFE [facility] 2022-07-26 2022-07-26 Orders Doctor 1.2.840.3 [id number] Univers 00:00:00 00:00:00 Only Unassigned, 73505.1.1 ity of [place] 3.104.2.7 [place] .3.501773 Medica l .8 [place] 2022-07-26 2022-07-26 Travel 1.2.840.1 1.2.202.814 [id number] Univers 00:00:00 00:00:00 26206.1.1 350.1.13.10 ity of 3.104.2.7 4.2.7.3.698 [place] .3.298564 084.8 Medica l .8 [place] 2022-07-24 2022-07-24 Outpatient SFA SFA [id number] Robert 13:24:12 13:24:12 0612 [facility] 2022-06-27 2022-06-27 Outpatient SFA SFA [id number] Robert 13:49:18 13:49:18 0516 [facility] 2022-06-21 2022-06-21 Outpatient SFA SFA [id number] Robert 08:52:50 08:52:50 0510 [facility] 2022-06-15 2022-06-15 Outpatient SFA SFA [id number] Robert 15:23:34 15:23:34 0504 [facility] 2022-05-31 2022-05-31 Outpatient R SARA OKEEFE [facility] [id number] [facility] [place] [facility] 08:45:00 08:45:00 SARA OKEEFE ity of [facility] 2022-05-30 2022-05-30 Outpatient SFA SFA [id number] Robert 11:55:27 11:55:27 0418 [facility] 2022-05-23 2022-05-23 Outpatient SFA SFA [id number] Robert 11:17:29 11:17:29 041 [facility] 2022-05-12 2022-05-12 Outpatient SFA SFA [id number] Robert 08:06:11 08:06:11 0331 [facility] 2022-05-11 2022-05-11 Outpatient SFA SFA [id number] Robert 13:45:44 13:45:44 0330 [facility] 2022-04-08 2022-04-08 Orders Doctor 1.2.840.5 [id number] Univers 00:00:00 00:00:00 Only Unassigned, 08329.1.1 ity of [place] 3.104.2.7 [place] .3.839959 Medica l .8 [place] 2022-02-21 2022-02-21 Orders Doctor 1.2.840.4 [id number] Univers 00:00:00 00:00:00 Only Unassigned, 20013.1.1 ity of [place] 3.104.2.7 [place] .3.387896 Medica l .8 [place] 2022-02-15 2022-02-15 Swaging Machine Adjuster Pathology 1.2.840.1 [id number] Univers 13:30:00 13:45:00 Visit Pcp-Lab 59154.1.1 ity of 3.104.2.7 [place] .3.011203 Medica l .8 [place] 2022-02-15 2022-02-15 Outpatient R LARISSA, [facility] [id number] Univers 08:45:00 10:52:26 DERRELL ity o f [facility] 2022-02-15 2022-02-15 Travel 1.2.840.1 1.2.144.901 [id number] Univers 00:00:00 00:00:00 99862.1.1 350.1.13.10 ity of 3.104.2.7 4.2.7.3.698 [place] .3.081113 084.8 Medica l .8 [place] 2022-01-11 2022-01-11 Outpatient R SARA OKEEFE [facility] [id number] Univers 11:00:00 12:39:46 SARA OKEEFE ity of [facility] 2022-01-11 2022-01-11 Orders Doctor 1.2.840.8 [id number] Univers 00:00:00 00:00:00 Only Unassigned, 65576.1.1 ity of [place] 3.104.2.7 [place] .3.430617 Medica l .8 [place] 2022-01-11 2022-01-11 Travel 1.2.840.1 1.2.759.790 [id number] Univers 00:00:00 00:00:00 42685.1.1 350.1.13.10 ity of 3.104.2.7 4.2.7.3.698 [place] .3.438004 084.8 Medica l .8 [place] 2021-11-24 2021-11-24 Outpatient R SAAVEDRA, [facility] [id number] Univers 09:30:00 09:30:00 IGOR bricedl walters [facility] 2021-11-16 2021-11-16 Outpatient R SARA OKEEFE [facility] [id number] Univers 11:00:00 11:00:00 KACIESUKHJINDER MCNEILBERLY [facility] 2021-10-26 2021-10-26 Outpatient R SELF, [facility] [id number] Univers 08:00:00 08:00:00 DERRELL walters [facility] 2021-10-20 2021-10-20 Outpatient R SAAVEDRA, [facility] [id number] Univers 10:00:00 10:00:00 IGOR lupillo walters [facility] 2021-10-03 2021-10-03 Outpatient R JENNIFER, [facility] [id number] Univers 14:30:00 14:30:00 REX [facility] 2021-09-21 2021-09-21 Outpatient R SELF, [facility] [id number] Univers 09:30:00 09:30:00 DERRELL walters [facility] 2021-08-24 2021-08-24 Outpatient R SELF, [facility] [id number] Univers 09:30:00 10:41:34 DERRELL wesley o [facility] 2021-08-24 2021-08-24 Travel 1.2.840.1 1.2.212.852 [id number] Univers 00:00:00 00:00:00 95732.1.1 350.1.13.10 ity of 3.104.2.7 4.[place].7.3.698 [place] .3.652335 084.8 Medica l .8 [place] 2021-07-25 2021-07-25 Outpatient R LARISSA, [facility] [id number] Univers 09:00:00 09:00:00 DERRLEL martinez [facility] 2021-06-22 2021-06-22 Outpatient R SARA OKEEFE [facility] [id number] Univers 11:15:00 12:18:05 SARA OKEEFE dl [facility] 2021-06-22 2021-06-22 Outpatient R SUKHJINDER OKEEFEBERLY [facility] [id number] Univers 11:15:00 11:15:00 SARA OKEEFE dl [facility] 2021-06-22 2021-06-22 Travel 1.2.840.1 1.2.091.740 [id number] Univers 00:00:00 00:00:00 20720.1.1 350.1.13.10 ity of 3.104.2.7 4.[place].7.3.698 [place] .3.404975 084.8 Medica l .8 [place] 2021-06-20 2021-06-20 Outpatient R LARISSA, [facility] [id number] Univers 11:15:00 11:15:00 DERRELL martinez [facility] 2021-06-20 2021-06-20 Outpatient R SELF, [facility] [id number] Univers 11:15:00 11:15:00 DERRELL martinez [facility] 2021-06-08 2021-06-08 Outpatient R GREGORHILARY BOOGIE [facility] [id number] Univers 09:20:00 09:20:00 TERESA ROBELRACHELE [facility] 2021-06-08 2021-06-08 Patient Saavedra, [facility] 1.2.840.114 [id number] Univers 00:00:00 00:00:00 Secure Msg Igor PRIMARY 350.1.13.10 ity of [facility] 4[place]2.7.2.686 [place] [id number] Sc dical 092 [place] 2021-06-07 2021-06-07 Emergency X SINGER [facility] ERT [id number] Univers 09:13:00 10:50:00 GIGI ity of [facility] 2021-06-07 2021-06-07 [facility] 1.2.198.815 [id number] Univers 09:13:00 10:50:00 Gigi GILLESPIE 350.1.13.10 i ty [facility] 4.2.7.2.686 [facility] [id number] [facility] 084 Branch 2021-06-07 2021-06-07 Emergency Ny, 1.2.840.9 [id number] Univers 09:13:00 10:50:00 Gigi 27846.1.1 ity of 3.104.2.7 [place] .3.095209 Medica l .8 [place] 2021-06-07 2021-06-07 Outpatient R QUENTIN, [facility] [id number] Univers 00:00:00 00:00:00 IGOR walters f [facility] 2021-06-07 2021-06-07 Orders Doctor MOO 1.2.840.114 [id number] Univers 00:00:00 00:00:00 Only Unassigned, QUITA 350.1.13.[address] [place] [facility] 4.2.7.2.686 [facility] [phone] [facility] 009 [place] 2021-06-07 2021-06-07 Travel 1.2.840.1 1.2.575.605 [id number] Univers 00:00:00 00:00:00 08509.1.1 350.1.13.10 ity of 3.104.2.[place] 4.[place].3.698 [place] .3.117303 084.8 Medica l .8 Branch 2021-06-07 2021-06-07 Orders Doctor 1.2.840.5 [id number] Univers 00:00:00 00:00:00 Only Unassigned, 22837.1.1 ity of [place] 3.104.2.7 [place] .3.916443 Medica l .8 Branch 2021-06-03 2021-06-03 Travel 1.2.840.1 1.2.061.649 [id number] Univers 00:00:00 00:00:00 17610.1.1 350.1.13.10 ity of 3.104.2.[place].3.698 [place] .3.490274 084.8 Medica l .8 [place] 2021-05-27 2021-05-27 Outpatient R [facility], [facility] [id number] Univers 00:00:00 00:00:00 IGOR wesley o f [facility] 2021-05-27 2021-05-27 Outpatient R SAAVEDRA, [facility] [id number] Univers 00:00:00 00:00:00 IGOR walters f [facility] 2021-05-25 2021-05-25 Patient Doctor MOO 1.2.840.114 [id number] Univers 00:00:00 00:00:00 Secure Msg Unassigned, QUITA 350.1.13.[address] [place] [facility] 4.2.7.2.686 Iam as [id number] [address] 2021-05-25 2021-05-25 Patient Doctor 1.2.840.8 [id number] Univers 00:00:00 00:00:00 Secure Msg Unassigned, 00225.1.1 ity of [place] 3.104.2.7 [place] .3.879515 Medica l .8 [place] 2021-05-20 2021-05-20 Telephone Jones 1.2.840.7 [id number] [id number] Univers 00:00:00 00:00:00 Best, 59471.1.1 ity of [place] 3.104.2.7 [place] .3.087745 Medica l .8 Branch 2021-05-20 2021-05-20 Telephone Jones 1.2.840.8 [id number] [id number] Univers 00:00:00 00:00:00 Best, 41723.1.1 ity of [place] 3.104.2.7 [place] .3.098672 Medica l .8 [place] 2021-05-18 2021-05-18 Travel 1.2.840.1 1.2.404.457 [id number] 6448 Univers 00:00:00 00:00:00 12405.1.1 350.1.13.10 ity of 3.104.2.7 4.[place]7.3.698 [place] .3.523367 084.8 Medica l .8 Branch 2021-05-18 2021-05-18 Travel 1.2.840.1 1.2.246.776 5223 6448 Univers 00:00:00 00:00:00 84492.1.1 350.1.13.10 ity of 3.104.2.7 4.[place]7.3.698 [place] .3.309232 084.8 Medica l .8 Branch 2021-05-17 2021-05-17 Swaging Machine Adjuster [facility] [place] [facility] 1.2.840.114 [id number] Univers 13:15:00 13:30:00 Visit Igor Saavedra PRIMARY 350.1.13.1 0 ity of CARE 4.2.7.2.686 Sujey BROWNLEE [phone] Sc dical 366 [place] 2021-05-17 2021-05-17 Swaging Machine Adjuster Igor Saavedra 1.2.840.1 1 [id number] Univers 13:15:00 13:30:00 Visit Pcp-Lab 03259.1.1 ity of 3.104.2.7 [place] .3.447154 Medica l .8 [place] 2021-05-17 2021-05-17 Swaging Machine Adjuster Igor Saavedra 1.2.840.1 1 [id number] Univers 13:15:00 13:30:00 Visit Pcp-Lab 81188.1.1 ity of 3.104.2.7 [place] .3.675671 Medica l .8 [place] 2021-05-17 2021-05-17 Outpatient R QUENTIN NVFATMATA [facility] [id number] Univers 09:00:00 10:25:05 IGOR wesley o f [facility] 2021-05-17 2021-05-17 Office Igor Saavedra 1.2.840.1 1020 [id number] Univers 09:00:00 10:25:05 Visit Deonte Joel 53693.1.1 ity of 3.104.2.7 [place] .3.468642 Medica l .8 [place] 2021-05-17 2021-05-17 Outpatient R SAAVEDRA [facility] [id number] Univers 09:00:00 10:25:05 [facility] ity o [facility] 2021-05-17 2021-05-17 [facility] [id number] Univers 09:30:00 09:30:00 IGOR ity o [facility] 2021-05-17 2021-05-17 Travel 1.2.840.1 1.2.571.330 [id number] Univers 00:00:00 00:00:00 05162.1.1 350.1.13.10 ity of 3.104.2.7 [place].3.698 [place] .3.077207 084.8 Medica l .8 [place] 2021-05-17 2021-05-17 Travel 1.2.840.1 1.2.489.246 [id number] [id number] Univers 00:00:00 00:00:00 95304.1.1 350.1.13.10 ity of 3.104.2.7 [place].3.698 [place] .3.530735 084.8 Medica l .8 [place] 2021-04-26 2021-04-26 Outpatient R [facility] [id number] Univers 09:00:00 09:00:00 ity [facility] 2021-04-26 2021-04-26 Outpatient R UNKNOWN, [facility] [id number] Univers 09:00:00 09:00:00 ATTENDING ity [facility] 2021-04-20 2021-04-20 Outpatient R SARA OKEEFE [facility] [id number] Univers 08:45:00 08:45:00 [facility]FE [facility] 2021-04-11 2021-04-11 Outpatient R SALLY MITCHELL [facility] [id number] Univers 08:40:00 08:40:00 SALLY MITCHELL dl [facility] 2021-04-11 2021-04-11 Outpatient SALLY FIGUEROA [facility] [id number] Univers 08:40:00 08:40:00 SALLY MITCHELL [facility] 2021-03-21 2021-03-21 Outpatient SALLY FIGUEROA [facility] [id number] Univers 08:00:00 08:00:00 SALLY MITCHELL [facility] 2021-03-17 2021-03-17 Patient Doctor [facility] 1.2.840.114 [id number] Univers 00:00:00 00:00:00 Secure Msg Unassigned, HEALTH 350.1.13.10 ity of [place] 4.2.7.2.686 Iam as TYLER?BLEA [phone] [address] [facility] 2021-03-17 2021-03-17 Patient Doctor 1.2.840.9 [id number] Univers 00:00:00 00:00:00 Secure Msg Unassigned, 77846.1.1 ity of [place] 3.104.2.7 [place] .3.024886 Medica l .8 [place] 2021-03-17 2021-03-17 Patient Doctor 1.2.840.6 [id number] Univers 00:00:00 00:00:00 Secure Msg Unassigned, 11114.1.1 ity of [place] 3.104.2.7 [place] .3.930928 Medica l .8 [place] 2021-03-16 2021-03-16 Swaging Machine Adjuster Salbador Lockwood 1.2.840.1 1020 [id number] Univers 13:15:00 13:30:00 Visit Pcp-Lab 38663.1.1 ity of 3.104.2.7 [place] .3.426015 Medica l .8 [place] 2021-03-16 2021-03-16 Swaging Machine Adjuster Salbador Lockwood 1.2.840.1 1020 [id number] Univers 13:15:00 13:30:00 Visit Pcp-Lab 89204.1.1 ity of 3.104.2.7 [place] .3.640765 Medica l .8 [place] 2021-03-16 2021-03-16 Outpatient R FABIÁN [facility] [id number] Univers 13:15:00 13:15:00 SALBADOR dl [facility] 2021-03-16 2021-03-16 Outpatient SARA DELGADILLO [facility] [id number] Univers 12:00:00 12:09:51 SARA OKEEFE [facility] 2021-03-16 2021-03-16 Outpatient Tonya OKEEFE [facility] [id number] Univers 12:00:00 12:09:51 SARA OKEEFE dl [facility] 2021-03-16 2021-03-16 Outpatient SARA DELGADILLO [facility] [id number] Univers 12:00:00 12:00:00 SARA OKEEFE dl [facility] 2021-03-16 2021-03-16 Travel 1.2.840.1 1.2.054.513 [id number] Univers 00:00:00 00:00:00 38523.1.1 350.1.13.10 ity of 3.104.2.7 4.[place].3.698 [place] .3.999455 084.8 Medica l .8 [place] 2021-03-16 2021-03-16 Travel 1.2.840.1 1.2.722.206 [id number] [id number] Univers 00:00:00 00:00:00 96196.1.1 350.1.13.10 ity of 3.104.2.7 4.[place].7.3.698 [place] .3.360003 084.8 Medica l .8 [place] 2021-03-11 2021-03-11 Emergency Chapin [facility] ERT [id number] Univers 09:44:00 13:06:00 HALIMA wesley [facility] 2021-03-11 2021-03-11 Emergency Geeta, 1.2.840.6 [id number] Univers 09:44:00 13:06:00 Halima Cates 18163.1.1 ity of 3.104.2.7 [place] .3.797478 Medica l .8 [place] 2021-03-11 2021-03-11 [facility] [id number] Univers 09:44:00 13:06:00 HALIMA ity [facility] 2021-03-11 2021-03-11 Emergency Geeta, 1.2.840.0 [id number] Univers 09:44:00 13:06:00 Halima Cates 72937.1.1 ity of 3.104.2.7 [place] .3.360541 Medica l .8 [place] 2021-03-11 2021-03-11 [facility] [id number] Univers 09:44:00 13:06:00 HALIMA ity [facility] 2021-03-11 2021-03-11 [facility] [id number] Univers 09:44:00 09:44:00 HALIMA ity [facility] 2021-03-11 2021-03-11 Travel 1.2.840.1 1.2.274.319 [id number] Univers 00:00:00 00:00:00 82209.1.1 350.1.13.10 ity of 3.104.2.7 4.[place].3.698 [place] .3.056400 084.8 Medica l .8 [place] 2021-03-11 2021-03-11 Travel 1.2.840.1 1.2.981.463 [id number] [id number] Univers 00:00:00 00:00:00 00061.1.1 350.1.13.10 ity of 3.104.2.7 4.[place].7.3.698 [place] .3.378808 084.8 Medica l .8 [place] 2021-03-08 2021-03-08 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 Machine 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 Salbador Lockwood 1.2.840.1 1020 [id number] Univers 15:00:00 15:15:00 Visit Pcp-Lab 75785.1.1 ity of 3.104.2.7 [place] .3.682587 Medica l .8 [place] 2021-03-08 2021-03-08 Swaging Machine Adjuster Salbador Lockwood Solomon 1.2.840.1 1020 [id number] Univers 15:00:00 15:15:00 Visit Pcp-Lab 26740.1.1 ity of 3.104.2.7 [place] .3.265757 Medica l .8 [place] 2021-03-08 2021-03-08 Outpatient R FABIÁN, [facility] [id number] Univers 15:00:00 15:00:00 SALBADOR wesley [facility] 2021-01-31 2021-01-31 Outpatient R SELF, [facility] [id number] Univers 10:15:00 10:55:06 DERRELL wesley [facility] [place] [facility] 2020-12-29 2020-12-29 Outpatient R SELF, [facility] [id number] Univers 08:00:00 08:41:00 [facility] 2020-12-29 2020-12-29 Outpatient R SELF, [facility] [id number] Univers 08:00:00 08:41:00 DERRELL wesley [facility] [place] [facility] 2020-12-29 2020-12-29 Travel 1.2.840.1 1.2.498.036 [id number] Univers 00:00:00 00:00:00 04475.1.1 350.1.13.10 ity of 3.104.2.7 4.[place].7.3.698 [place] .3.744594 084.8 Medica l .8 [place] 2020-12-29 2020-12-29 Travel 1.2.840.1 1.2.768.012 [id number] Univers 00:00:00 00:00:00 81014.1.1 350.1.13.10 ity of 3.104.2.7 4.2.7.3.698 [place] .3.618202 084.8 Medica l .8 [place] 2020-12-22 2020-12-22 Outpatient R SELF, [facility] [id number] Univers 09:30:00 09:30:00 DERRELL martinez [facility] 2020-12-22 2020-12-22 Outpatient R SELF, [facility] [id number] Univers 09:30:00 09:30:00 DERRELL martinez [facility] 2020-11-26 2020-11-26 Orders Doctor MOO 1.2.840.114 [id number] Univers 00:00:00 00:00:00 Only Unassigned, QUITA 350.1.13.[address] [place] [facility] 4.2.7.2.686 Iam as [phone] [address] 2020-11-10 2020-11-10 Outpatient R SHE, [facility] [id number] Univers 09:30:00 09:30:00 ROBERT bricedl [facility] 2020-11-10 2020-11-10 Orders Doctor 1.2.840.8 [id number] Univers 00:00:00 00:00:00 Only Unassigned, 91329.1.1 ity of [place] 3.104.2.7 [place] .3.638773 Medica l .8 [place] 2020-11-10 2020-11-10 Travel 1.2.840.1 1.2.967.289 [id number] Univers 00:00:00 00:00:00 26283.1.1 350.1.13.10 ity of 3.104.2.7 4.[place].3.698 [place] .3.970544 084.8 Medica l .8 [place] 2020-10-11 2020-10-11 Outpatient R SELF, [facility] [id number] Univers 08:00:00 08:00:00 DERRELL martinez [facility] 2020-10-11 2020-10-11 Travel 1.2.840.1 1.2.509.806 [id number] Univers 00:00:00 00:00:00 08863.1.1 350.1.13.10 ity of 3.104.2.7 4.[place].7.3.698 [place] .3.159154 084.8 Medica l .8 [place] 2020-09-13 2020-09-13 Outpatient R SELF, [facility] [id number] Univers 08:00:00 08:00:00 DERRELL ity o f [facility] 2020-09-13 2020-09-13 Travel 1.2.840.1 1.2.916.648 [id number] Univers 00:00:00 00:00:00 36035.1.1 350.1.13.10 ity of 3.104.2.7 4.2.7.3.698 [place] .3.319954 084.8 Medica l .8 [place] 2020-09-02 2020-09-02 Emergency Rose, 1.2.840.7 [id number] [facility] [place] [facility] 16:12:00 20:21:00 Patti 79973.1.1 ity of 3.104.2.7 [place] .3.178939 Medica l .8 [place] 2020-09-02 2020-09-02 [facility] 1.2.840.114 [id number] 16:12:00 20:21:00 Patti [place] 350.1.13.10 [place] 4.2.7.2.686 [place] [id number] 084 2020-09-02 2020-09-02 Travel 1.2.840.1 1.2.877.786 [id number] Univers 00:00:00 00:00:00 50165.1.1 350.1.13.10 ity of 3.104.2.7 4.2.7.3.698 [place] .3.787829 084.8 Medica l .8 [place] 2020-09-02 2020-09-02 Orders Doctor 1.2.840.5 [id number] Univers 00:00:00 00:00:00 Only Unassigned, 00848.1.1 ity of [place] 3.104.2.7 [place] .3.520877 Medica l .8 [place] 2020-09-02 2020-09-02 Orders Doctor MOO 1.2.840.114 [id number] 00:00:00 00:00:00 Only Unassigned, QUITA 350.1.13.[address] [place] [facility] 4.2.7.2.686 [id number] 009 2020-08-25 2020-08-25 Outpatient R [facility] [id number] Univers 09:15:00 09:15:00 [facility] 2020-08-09 2020-08-09 Outpatient R SELF, [facility] [id number] Univers 08:45:00 08:45:00 DERRELL itdl o [facility] 2020-06-28 2020-06-28 Outpatient R FABIÁN, [facility] [id number] Univers 13:45:00 13:45:00 [facility] 2020-06-21 2020-06-21 Outpatient R SELF, [facility] [id number] Univers 15:15:00 15:15:00 DERRELL itdl o [facility] 2020-06-07 2020-06-07 Outpatient R SELF, [facility] [id number] Univers 08:45:00 08:45:00 DERRELL itdl o [facility] 2020-05-25 2020-05-25 Outpatient R MICHELLE, [facility] [id number] Univers 08:30:00 08:30:00 CRISTO [facility] 2020-03-15 2020-03-15 Outpatient R FABIÁN, [facility] [id number] Univers 13:00:00 13:00:00 [facility] 2020-03-08 2020-03-08 Outpatient R SELF, [facility] [id number] Univers 13:00:00 13:00:00 DERRELL ity o [facility] 2020-02-16 2020-02-16 Outpatient R SELF, [facility] [id number] Univers 11:00:00 11:00:00 DERRELL ity o [facility] 2020-01-27 2020-01-27 Outpatient R SELF, [facility] [id number] Univers 11:45:00 11:45:00 DERRELL ity o f [facility] 2020-01-19 2020-01-19 Outpatient R SELF, [facility] [id number] Univers 08:00:00 08:00:00 DERRELL ity o [facility] 2019-12-22 2019-12-22 Outpatient Tonya LARISSA, [facility] [id number] Univers 08:45:00 08:45:00 DERRELL martinez [facility] 2019-12-05 2019-12-05 Outpatient Tonya ALEISHA, [facility] [id number] Univers 10:45:00 10:45:00 JEWEL wesley [facility] 2019-10-23 2019-10-23 Outpatient Tonya DELGADO, [facility] [id number] Univers 09:15:00 09:15:00 KATH lupillo [facility] 2019-10-15 2019-10-15 Outpatient Tonya SHE, [facility] [id number] Univers 11:30:00 11:30:00 ROBERT dl [facility] 2019-10-01 2019-10-01 Outpatient Tonya NOWAK, [facility] [id number] Univers 14:30:00 14:30:00 ROBERT [facility] 2019-09-01 2019-09-01 Outpatient Tonya DIAS, [facility] [id number] Univers 08:45:00 08:45:00 DERRELL martinez [facility] 2019-08-06 2019-08-06 Outpatient Tonya SHALOM, [facility] [id number] Univers 13:00:00 13:00:00 ANGELA [facility] Results Test Description Test Time Test Comments Results Result Comments Source SURGICAL PATHOLOGY EXAM 2022-11-17 19:23:05 Test Item Value Reference Range Interpretation Comme nts Case Report (test code = 3969700363) Surgical Pathology ?Case: [id number] ? Authorizing Provider: ?Dominic Keita MD ? ? ?Collected: ? 11/13/2022804 ?Ordering Location: ? ? GI Endoscopy OR Department Received: ?11/13/2022 1016 ?Pathologist: ? Billy Diaz MD PhD ?Specimens: ? A) - STOMACH, Gastric polyp x6 r/o adenoma ? B) - DUODENUM, Duodenal Bx, r/o Celiac disease and reasons for anemia ? C) - STOMACH, Gastric Bx r/o HPylori ? Final Diagnosis (test code = [id number] [id number]) xCApCVftsiKfCCvohEmiGSP6VCIjZM3puEgwjJh4 zSigQMQsmpQ3yAQrMHndz3mpVTW2o8izjltlAUQp WSmeHl3dwJEzwFliAvFuWJZlBDc5tX69CYXxjU4d cCAsHKl7EDSbsMUptkFgNqOhAGSfdWVfkWP8TPNx GL9lapisZJbmWXvvEJJjolX1LRZmiVNlY5DxFTCo QV0xiuckIKB7NNinWWImQVP1AhIfKMFgx2Qonka0 XyXwvCTvRNhjuHEbhppennAdRQBupeMZChNMCI2T NLRROSEUG9lNOPPIQK3NYRVZPaetjDXtIYSxLCFx ZUUVBH7YAANpT3mMXeWcAM2SYEIdLZJlmKHpJBAt mnIKQoJBFI1TKA7CBXkqRkhUMYVJQqtwRGKbJLOr IRJtBVvTT4XWWUNaRDGYO8DSJKuUAKuwXc5iIJKJ JW6CX0rVC9JPIAMHYR1HTXuoQXQnBIDgOGAcJA5Z WYsrDSHJFU6GNCOCFJJBYHzYYBSEXQAXQSuNOOBX V3XEZJzBGZGhdabzPOZdZw4mM1TGBCIRDQjuXzlP WBZBSxukQWZdSPNzMUYbBDTQM0VXQaHYRN9EY38Q SUBMUPMTDR1UPGYOFGhWCR6LFHXXHAMKSLMDH6Tu iLCxPBQzNUCaKTYFDvGSWsrSSM8ULTLRNhWFXVzK BZQnFLyFDXNKHMjaASGuTTGnAXHkZK1UGTpoDZVD ZG3IEDKZPcvTPbaAXHNtGSXXVoXZVmeWZPJORAII XO3RSw5QCBGOGjnpCYLyeAQteOukbaLmIPvfu1Ix J1VtZkQnMGlwvlMrBGIcScjztbdwIHIcDZK9yqPa YSOuBCxbDKVsJQiwFz5lkXUrjOcjSaBbYMBkm7hh scLVVNduFnQaB587ISUjNXgae5hmz7TuWPPkaTUq j1F7RXTKasvguFy1m7uuTqNeKtB9lLAfHNxeN1ey ejJxdRQcP0QarMOyuSh7yUruT54gs9M7MbnmV8tj OIHqZXAtQ5FtEY8rHZEzYrx9AOR5FEX7FPRtQMNn K9VzIN5sBZZuuCSeNOb2b6vfrXdeILIhRZT9s3ex ISnemwC8YT0ivc6buLv8u0zpxzVpHGNrCBEqbALR MUFlO1NkqXczIm5bcMk7wJryNktsZBZ6Gsv2MZ6q wb71ohd1oWdcHVPevqefBmV5GNxzOYLyskciTQf0 KVwfSTIstKH5QCKesZHcX2KaYOWrHT1ibtd9VOK7 TJuvRJCwDcI1CWAoiMBaKFQtwQjzMRbzc643WPF2 LhChOR8gJ6Ilw3P2xV0pxLMpRUGqbFHpNlGxGTTz qb9ruTDjVKrqt8BrFBC8deB7gEIktKEmDOOtHW70 Wgocc7HyIgmcPPQ1YDNjhiXvc0Foh8uoAlFeifZv W3pfH8FmJMImQLCnQIBbBtTcpxHlu1Voc5IkiDMt oHs4q0idTFVeCIZfcSupt0wrWDG8LMFpE5R0uHNr s3dwDCnuCQYnvTH6anP5IFUldDEeB4WnsS8gLXSc BM0mosn6x2hrYII9YEraQVGqRrK6tqD2IQExkGSy IVThuUzvUPlem367OEE5ItOcEPJxo4YtL9SouQoo Z94bzVznC26aVIKuoCojdN4amPdxxP9qVgYePqQe NFxxbFxwbGFpblxmMVxmczIwXGxhbmcxMDMzXGhp W1wvNzJzHLXtxPpiLTfkt6AsSNDvASLrDrxmeyDv QUCfgsYQYSzvbyHulTAll09mZDbqpYKmGPGyRTzz MJGfdNjkr9XjM3hjVU7fI8JhnVKaorAhhsZpNFgp BAVtq1m7rGDsaZcgu3RalXEgZB48aiDsMUYhETZ7 ECMsg0uzDZ42ezioOrTnuB54veStbzVxSDJvw3pp F8rlkAEmz2Rrt0EzreIcGDfmm1UxJM0eoJStseol pJD8NJJyuHGpkbImaiG8zJgoCTZujL6zpI2lxUli jS3fSyAhMvLtUIyyXQ1nVWXnX7fkyVSxKTPhVXSo D0atEqDseH2ihIshCtivjdR4RFKjud50 Clinical Information (test code = Shivani Schuler is a 47 year ol d [id number]) female with IDA1. Gastric polyp x 6 r/o adenoma2.Duodenal Bx, r/o Celiac disease 3. Gastric Bx r/o HPylori Gross Description (test code = [id number] cGd [id number]) [file] cmQgDQp9 Disclaimer (test code = 9670484320) l7ieySIwPKAkd3cfWOSabAQrDhBoDdD cZnRuYmpc vWUxOZgvbfXlIQxff7UnU0SwAtQaVXttjtYkYJZt EmwgrhzrKXNbQQL6slWkFHEuSIrzLDDxLAzfZn5x xEUxnPptTxXuTWZbs4zkfiYIGMxnUlHkU315QCAs TPasi4zcb1NqOXCnqXIec1K3SGNAjvuwiVb9cVfc X68aj3I2HmdkN6ogEDKmZMWhG2AhIK5mFJLsVwz9 OVE4ZSL3TSWyGBPkE9HnAZ9mHCGpaFUzVRl8c7zy wPsoARLjCXS2s9frJPjgrkHaVS7dgw7koTz4n2eo ncQjSTEnUSKgaUGLMQBlJ0UwvHarZk4jxDg4oOmm RkgdESC3Xai2MP7fut62zjj0cWhhEQQptuddGeD1 OPdfWNObufolNMa0LMuiFHRqwDJ4CZGscTIsV9Uw ORCwMS8raul3SDU8KMheAISjGiJ1CLEzpJEwRDLs rCjaJKpbm149TSB1EkClYQ2eH4Exj9B9qJ6lkXYo NEThtQVaSvCfVIJeox3vuOYpOCjqi8GvAAG0vmS5 sOAemXHtPMAlLO39Ihghl3MuJykzz4EuS79lqNE0 DZlyw5yxMW8fFzC3gdXiJWpnv1nltB9xDgO8ULyj OY7gKT1pETVgiY9upkmfJUQrYuAxychwLEJnyNvs niYuMv4xcSmxGLD4KYelV9civZ4wGfK6JHsfB2bm fL9aKQi8SMmfzXK4UOLsrW1mWT0zazbdz6taBZjk RXjsYTJuzpI7fhC7CQHccTZjL2UfaR3dQEAaJI1r uqwyz9bbSRV2YKwgJOTbGEK6ScNrKTNvo3Qusqc5 XjNfs2SmxLNjLAznX87dc781EURiciJkG1datOEp nvviyQJitpdhCFrgwtI8NZKmqhAic8EsJEBxOJZ9 DOrwRKiyfQRbJWKogLvfe3ckE5OvjZUiSUGmXHxa XGYxXGZzMjBcbGFuZzEwMzNcaGljaFxmMVxkYmNo [file] aFxmMVxjZjJcZnMyMFxwYXJccGFyXHBsYWluXGYx XGZzMjBcbGFuZzEwMzNcaGljaFxmMVxkYmNoXGYx WLrnZ5nbRwQiZ1AeQUOdHmUakVYjZ2gePEeeSKJ9 JYMxUA7raQVaBV75nZSii9euSXwtaQeokv8zN24o vYZvZWhwfOrbKQSln82yq1MzHROkvmUsph0gHEVv dwR8fS3nTNMbxUpbJCEbkIYlSAAmg1AyMMcbbIBh diQvSAihXJFkTYWlaVPshcF3sqDsuaGlplXdBTJu jRkrKGEwl3MiJQGyORbsf7Phcz0akCTnHDQemnBA eFpkjZLjhV0bO0QnXFGhUBKzwf2kXEQonV2jSKhn m0ByxobfHILqLMKeOSUrvzAqsp5zJABjoIHSIZ4K XVxvvEYdi7NqngMpT6oEOZT3WMTtJfYyFdcmNZXf vBKiaYOxPMJwgv76OWEbgZ7tiVmaEIYnfL9scD5l nQtmnF8xXcFfUhZvFXfzIU3yLZNcS9jvxFNcNBFe ZFDjV4hgOhLjrK6ggNqjXVobGoCrApLaZAayAXZ1 fQ== Embedded Images (test code = [id number]) [facility] [id number] 19:23:05 Test Item Value Reference Range Interpretation Comments Case Report (test code Surgical Pathology ? ? = [id number]) ?Case: [id number] ? Authorizing Provider: ?Dominic Keita MD ? ? ?Collected: ? 11/13/2022 0805 ?Ordering Location: ? ? GI Endoscopy OR Department Received: ?11/13/2022 1016 ?Pathologist: ? Billy Diaz MD PhD ?Specimens: ? A) - STOMACH, Gastric polyp x6 r/o adenoma ? B) - DUODENUM, Duodenal Bx, r/o Celiac disease and reasons for anemia ? C) - STOMACH, Gastric Bx r/o HPylori ? Final Diagnosis (test h5zjpWXgJTNhs9ftHGJewC code = [id number]) FuZzEwMzNcZnRuYmpcdWMx ZDawrwBhLWzyfRitFUR6XP AgGY7oqMwsvJs2mMykAAUb uaS8nRYmZVxdt2npHJT3h0 dxfatrKMFlDQmiEg4gxUBr vZxsRlUvHFHhJGx1nM89AZ FaiW7ibFZoZCm0MZHioYDk jbHwVfKxQWZjrKBzjPS9YE IbFE5wqoxtLDhpYCypFONu xvY1WSMctXOeQ3QtWJJuVX 2mwgjdTIH5GGmeFJBoRTA7 WsXpVNYuu5Qjjwm8TfOhtC FyZFxwbGFpblxmczIwXHBh giPTCmRMTV9FKBXPTOTPI6 wSTQCNQX9AIGHRSjkikINl JEFrRSCiGYHOMS4KYWRcJ8 gVVwUsOF3DTKSiWFLhbGFj ACYfxpINUqBIWQ3TNH3TFX wgQklPUFNZOlxwYXIgICAg XDUxGUnPA6ETLMDjLKYDD3 OWMAvAUMmiEs1zJQJLWI1H V0gEE0CVVAKNQT3GAFxuSN VsBKIwCHInLV5NLGdcJUOG QH8UIGURHBYGTPuGUHVJOS OHSCkXECKQA6SJXIrKCMLu ggwiVJArIb2qY9WZLZBCFS wgQklPUFNZOlxwYXIgICAg CYWuKEYCC9VZFzGGQF7XU9 2GOWLDOABHXQ0RZWMAMQgI QM9KIGPSNNORZIQSK4GozJ FyICAgICAgLSBOTyBFVklE SP4RYLDPZbKYDWcKRJFkTK lTRUFTRVxwYXIgICAgICAt WV3ERHihQZMVAM0YWONFNx dBTklTTVMgSURFTlRJRklF FORVXNMXTP4XJb9XTOWNGx xwYXJccGFyfXtccnRmMVxz y0NoF4ZlTlKzQGmlnoClHD IyUpykcrxoUITvDXU5yiRa XNKcNOmrIAZrHHpnIm5irZ HepKqnQdZqAEZew9ktcpKR QRrtEgUhL697JTUrOTotd2 zuh6QyEFYoiLBvu4R4JSKQ izduiFo2o9ewOcWpYgH7jV ZaJYbvA5rqdxWiqLVoI8Id rSRvbTu9oJllY31qv0G7Pj uvL4tvUEVyXSBoP5OhTQ7x UGKwYvm9GOO1BUX5BMWhKA NhT9UlZS1xPLHoqVFuJPy5 f3dttQfcMIWaGCU3r5mgIG arshV5WO9ppy1pxFd2x1jh czEgRGVmYXVsdCBQYXJhZ3 FhnMsyPm8wzZb3jVvnXugq IOH9Ckd4OD3fmd83kkg2tB rdTAPqwantYkB0ZBscDBOf nxpgLNv1STgbBNIsnCD5JY DhkPWwL5ZeXPSbGQ8bkha0 TDT0HDdsWFThNqN8FSBdhC WxVAGaaLtyAZrjs234BTM3 MjIhMH1nV9Kug0A1mT1rqP BmRQIvcKKyQcDeKDTlbr1b cVSpMIouc6BkQHT8ljI8iG HzuIGnAZBjVH98Dzkfj9Uc VzjiYCA9CWCqxhXhr4Qzh7 vbWbFgkwRgM7bgE3LkKQRn UZBaFOAeGaPditKhq5Hai5 NnqLQbjVg3i0krIZOnILKw cMgqp4wwBQZ7BIAjT5D0mJ Fsk5voSIbyPTOilXH3jcM9 TNKsuLBwS8OzgM5tUGPhRP 8jwmx7u0ftIWG6JFljIYSp AeC6shQ1NELfvZLvGYYidT zlKBdpt943LZB1UhAeSJTr p9EyK7CayDptC49djRdhO3 8vKLTpkUkttL2haWaijD2x ZjBcZnMyNFxxbFxwbGFpbl xmMVxmczIwXGxhbmcxMDMz PAedX5ssBcAeDDXsiGpgZY gyv1FjAYCcUTOfIindzqJy XHBhciBJIGhhdmUgcGVyc2 9uYWxseSByZXZpZXdlZCBh lTrjv3FnZ5zbBE0kS3LnmU LptwPcgxAkJCvlCMHia7j0 eLOwgBric8AouCImZA71lj LfFFVmGWL1LANte8lvJB27 fdgbDlKrqN33wnVzneUtMH Krk1muZ9eecCHla2Cbg9Pu ulBqFPrpq8IwOI5sfGQcdt boeSC4ODXwiUXgycWvsrC3 gPggYHDgjI4djQ1clBwczY 5yUtKdCuLtXHcqBL0jJONp W7jioGMiLFIxDXEnT3lqUz EyvP3mdEpqVscpuyJ2UKNi cn19 Clinical Information Shivani Schuler is a (test code = 47 year old female [id number]) with IDA1. Gastric polyp x 6 r/o adenoma2.Duodenal Bx, r/o Celiac disease 3. Gastric Bx r/o HPylori Gross Description (test n7wivIFjEGXcwRGWOUS1KW code = [id number]) XpQJ5bfFofaKn6iZszKNUo vrG9pQLvQRbua8bzBDS6c4 uqtpQZTcnpXYQpDO7bOVob OZBbSC3oGkBvNNRnTfVoYR BhcGVydzEyMjQwXHBhcGVy dVY5ESHbCM1qupscHKnqGW tdRISuwnO4YUWsrHJrQ7Qu QNJqXI7kkdlaKMI5ZZTDDx zjKm6oiPCweMmlTcMzXyYs YXJzZXQwXGZuaWwgQXJpYW n1rP4VAoapAWQ6ETLFGwmu FofofQsxb5BfkFAhFSEkFK xcaWQgNTEwMDAgXFxkYiBP GjHaOrI4Xdi5NLK1RtG6RA q9LDLJYSIjCmcuLZU7HaW6 ZKd4ILNqFY0fFFhwdZYaXK ikHzehFQqaG670KKhvKFBs W5AqW2TaIYutQxKmXSfsDC XcZJMtZQxaUUFhJ1JZOGZc PVR7HlQgTRAaFUi6HDfcK9 TZFQEbIFNzJjS6AVAuVqL7 PYk5SBSREn4cGMluEaGmLP n5JPW3VYc2UeGuAWJfIhQi YSIrNHWsSWtamOXhBD2diR qtRSEtSF4ALIXzUPcrLGEl EqWrB0KAK3bFRU6lEBzqlL JjaFxmczIyXHBhciANClxw XITtHF4KSWTfPYmiBXc4bc MaJCIyYxIcHJTdO96js3RM d1MwUX8GSRv8yzWcbnfahR 7pAQIoyzFjNHxKnDPgeB0j tsZTMOosFNOjM7UzxmEvLT usMXLtkx1vtLqvTPgzJsAy bGVkIHdpdGggdGhlIHBhdG qhrsYnJ6L0tcLeTC9cWKSB IRVmzZ2pCWLcQWTqn2OdxJ VzoWrrF4LteGHfKoRpo7z6 hBE6YFPxsmDwCWKwjZHmTT Putr9rDBeoEkMeJ6M2SGHf ZFDej14bcWP9qpUjOlXvlI g8rVYfART9QQ7msGphgcUb c3n2qD4jFKTxu7V6JPDqq9 A7VKKyqyHqnAHwlDFqDSMc UV6naeZfDR33ZFMiYZexEE bxIKN7HUD5SKVvzZOzc8hg hgvtUv4aZDreNH5hAEknSB 96OZXxRJbhHGYeR0KbS9Y7 IMleSTOfRRGhrPMvxE2cvv DdkkPomCw6CPSvAXD7lAVl zBjoSINdQmqmiHL9OQBrKa KlhuUjq9TybPp3cYCuLGfz KVTxoT9atX4vTLFuGYKely UVOxydVJCqVLhmz2UvZBem cGljWHNhMzAgDQpcZXBpY0 1td4KDc8Ris0ugkUejo8Au fDUtLL3neXJvJH3Nx5bwFH KdmXYvYAD2EYjso4njSBec LPG7RXBfDuLrQUZnMD3WYf PcMEjmDRn9EIxsCMz0BTz6 MA1WFnXvYIKiMkv2VcS9Fg CgBNa8LMpuTW6PYIK0NHHz WQPnAXkoTKT9QDHqNLy2TD IgXFxzcyAzIFxcZmwgXFxu R80wwSZfDQscAvUtOGvrrY tpGRVdJAU0PX6GUVChVlHv H8MLM1nVCF9pKmonxiGfYN RvfxOAJvftIYAhLQ5BTIXh HOzjQBy2arVzZLLcJmGdFJ MsA36ws4YDs7PdFN5FGQs2 ijWaeeywdR3bHIMcdfMea5 IzMFxlcGljWHNiMzAgDQpT kBBjgR5yrxWONGztMDYuG9 DgrfPxBPmiSSVxsv8ayIlg IGxhYmVsbGVkIHdpdGggdG dqCUEjaIdttzCvZ5T1hhXo CA0dSUEDQWTtxT5sFSYwSV SqGUSrSMBbcH6lWEV6e1Jm woJdIMWTLINsvYbnMR85yU BjZWxpYWMgZGlzZWFzZSBh ijDfurKgt36fxcIae5PlEH 8iyXhqCLbTDIndOfWwHJ8h IGCkldQvw4LfVK6pHAYiwH ZkMPHuulaaeVFoEQs6iRTp JPGbBfQvpQckm9BqAPJeEZ dhTU01fpIjVW9qHVlkOS1y DCfyMV8eSPOaBOYaFAMxNw NakSYjGaUekDTsRwFnX77k BkVZeTDyz5DwA8lwPW5gjS ZbVogvcUQmVYVuwFrup7Wb pBAsEAXlw9PadRYzTAxrAE 5zAKT1Yp0oaNUlSCNltrI8 t4AdXAetCSMmNsvqFUSeCE bjn7GqBVYhyVXQl8LpRZ2R XHBhciANClxzYTMwXGVwaW WNd2HbGZYDTmrzcGttBbPh fCAgVaR2DYFxfBAkQNH8MD 5hxNiiFYFhUPd1LLncDMKe O1RzH7FcRYufNdKlFSccGN ZhRCDvINjqFCLkT8IUNSBb PQD1NwSoQTTlHJk0CTrmU9 RAMNBqGACsHjC3SRD5BgJ1 HYb0XVYFAr7vTTuzBeLhSJ GwWoY5QNw7PcUbEPCcVdFh DTYiOITcJFruuHObUA5yjR apRPEcGNCwMIK8MSMctITQ g8FaDMEfYHzmKqPpMPHHOI TLJG5GUiMEGKAwAyYsxEJj PG9UQITlrvBiDFrikGjynD 9yoRYtY7eeOtUdGocpmNus TmVzdERvYzEgDQpcbHRycG FyXGxpbjBccmluMFxzYjMw NWJxvPYWt6WaKRPZWvXyES NpbWVuIEMgaXMgcmVjZWl2 VQUxbZ4jYj2fcZNmqY7psG MdERkbXYRfa4y9mAJ0rSYh dAJ0sCLxvVqrCgZqGX6rwM QhSLLTSC28nSObzyEaBCGm oK4wJHWxGTGuVFT0rysqLV GSUAX0zMSea8P8PXtmGJM4 jF1emDkqBiGtW5E2WZKnRE Muw96odRM3oaZjIgPtJORb fi9viT9xQTlhutTifNpvev Mxu6H0HHOnd2A2MOPvceKs bQYtiYSrACRmCeZ5KXHpNz H8UTGdVVBbyOLnVNOtDU9u VGhlIHNwZWNpbWVuIGlzIG TniGLnjyAkBFGkhq51P3yq MUMlwS0tf2dgOkGuJEQvZJ PvzIYzzJH4DIBxsC7bqK49 dnTynbHMOB4leFHxRZ4GJW NiMFxlcGljWHNiMCANClxw JRFwLHwkt3HcXTxofJglHM AlXzIaVQiUjZojLKYJR7lg xPCnVHulRLYRTJfWH6JBIM 4SELXpcKXNWTJ2AH1eJAjc QYFyK0CuQ8McurL8k6mmzF jwg6YsyCJyDS6heTKwNT7S XHBhcmQgDQp9 Disclaimer (test code = j6ncxFZmVQMfo9lbIDVxmE [id number]) FuZzEwMzNcZnRuYmpcdWMx EHxvibWmDWjak2HxF6JtSg AwMFxhbnNpXGRlZmxhbmcx HEWlFNY8mgAlZVMvTKloNY AjEJiqHy5jpKGsyDyvIkWa FNEpa6jksrCRRJqgZcYpR6 11RIWoRFrld5cjp6IyLPWm zYUrt2I8KINFdnskoSu2uO gjM86ip5V3JzomK5abBGRl LYRbW6ItTE9wOXFiSxe0CG R3OTK9IGFaSLBsM9EkMZ4u FIZlvVPeALp6f9sytOdqSC LcXNB2j7onKUgdxlJrPF7c vz6jqUg9e2cvnvOqUPUvVB YhvOQGIKHlI4XwmLxpIp3z eLx7tOsyVlyjCNV6Tzl3KH 8zqq03brp2eAmpBPAcptvl FmG3NDzxMJSgqeyiHUr8AW wsKHPpmQR2RPHlrQGpN9Nz XSWuJF6nvaf0LUL5BBxhKQ MtMbX5AMVuuUIuAQJcpSxr OVeep674RDU7GhRbJO1vT2 Dft3X1xC9qbNWmJGDhjUCx VpQeXSQyon0zwTBiLJada4 ZnRDD7gmG2lBAvsYEgSTQm EC19Tfnqu9FgBvemd5ArH3 0ixAP3PLnsg2koAH9yVxU9 xpGkTPdsg7npkT0zOtU8MO dzXN1lHV0qERKfeH4mpyoc XHBnYnJkcmhlYWRccGdicm KlVi7ggTmkIAV9APwrZ0st mU9zAfX5TDeaK3pxxK3kTR w0PMtxzHJ1IFNlzK4pQD9j ncizm5tzRIglEZajQVXwgw P0yfS1SNJwlCCtC0IldK1z IWOsBC6uriowx9ipMSG5RY sfLCHlHVZ7AdTkCHIwx1Bh try7MrKlv3UihZUyYOfhL8 7qg839NQQedsUjB5xniEBv sugqiZWedpnsMBzjyaW9OO SwuyBms9XeKXCvZZR7LYbv KVcyqXCeXVVcyDaxu4stI5 RscGFyXHBsYWluXGYxXGZz MjBcbGFuZzEwMzNcaGljaF wtXGcdAcPbSGExOOrkD4rm FeRoQ5GlWUPrTbBbmABnY8 ggVGhpcyByZXBvcnQgbWF5 YAiiA8q7WHVkgmGhhOj7nf AbCuUmFVIzSKP5LArggPUk DOEpu1BfafaxfJBaOl4dhZ RtRJDfpE3uRHHfQRGnRUvz YY6iiUa4LAWVmDDwvEFyOy CRNWJrJL39bzZhWZXDjvgj x0G8CBguSXVpt8SwsLAuR8 ray2AmRMOue20nRA4em9U4 r2ezDDI4GC4rt8EbYUVlsZ RkdJLtIZGov3Tgoebgj0Dp AAPiojOzi5DyAICtvzMjdC WsGKZlylVkrn2obxOrRJPs NNFiE7UfyfdwkArbttToIF Rvbn6shyIjWSW8ITPSIJJp AGWag6RuzJ3toMKNBHC8kN Ssfz6vmzUOvFUtWYAjws73 BBMqWO5aC2kmWLSkLSEzga BaxPXfp2IkOYXofUR7wOZw IP3DHwPFw76iJIYaHJLKjn FwYUUbcMqkiWL1njZ3dC4s IChGREEpLlx+IFRoZSBGRE RcHV9rgzHyq7TgdcYbhQyj EVAyzHExd2OhpUBhx3YblV hkp0ChrKFubZGjOP5jHUMp clxwYXIgVVRNQiBMYWJvcm X5l6WqADTeAGNfTQE0kEde vnl8QIUrgS9uMXDeI3lkvs niKMycSQKtk6RmuH5dpGRM oYBfh1NyzHRceCACoBWsPC 4ldpAaJNyRJDdPYDD6eoZa UWMzn0PxBHgwF8ipC99eyZ mxhHp9aRH9JHS9rP9gEkg+ IFxwYXJccGFyIEFwcHJvcH AfYUUjrTrmknOlR0CcxsPj pK0yaVRcutRsUA0nTV2wB4 A6wSMdJPRrkkOre0tpEKmj dmUgYmVlbiByZXZpZXdlZC Gmd4YcVRasUWK8REoiyyXl bmNsdWRpbmcgSCZFLCBTcG KefLQgPBD3SRegakTehcWh OC6zfO4jdYaijU4mqQSnpQ F6fdroADMdZWCdwOqmUTVl DD6nfEvfsC2sSrCrYyOoAH dpRO5lSONdB5qtwSXmWTSp HIFvO5blYkPaaY2noGbdYD xjZjJcZnMyMFxwYXJccGFy XHBsYWluXGYxXGZzMjBcbG FuZzEwMzNcaGljaFxmMVxk LdCnWGXvQLnmS5xhKbXvA8 UjWODpSwVzoVNaF9zsJEab UIW8PLCiRC8efUXwPF63uN Oha6qeSOtibVukzt9yQ31l dXLtRFiavWriRIPyv80fb1 AbIQZxxkRgrg0sJORlxwK3 nJ0pMEWxwXeoTWMpoBPiPW Viz0ApLTpblYNnbzOiMRlk UOZkAXFwtWUcpgH3qbIzek OlhlLdBQSjwPmlMUOfm0Hp QZLyXYwxj8Cbxj1auJGeQZ GodfXFnAjhrWDyeP4fZ0Pp QQIhHXUvcd8cZAThmE1wVP vuj3VvilfdNXIeTZLlAHZh xjSylo0vAQSpoHXEPP1KNO cpwLVsb4GvswIaH3hRNWM2 NUQwNjYwMjgxKSBleGNlcH KiDPPmoc10NFNzbQ6waJmf BCAmbE2ykW9psOzprJ4eYm QzWyTtANaoET6xVLSpX1an dIZdFGTnBXEvR7ltVyNuoD 9jaFxmMVxjZjJcZnMyMFxw YXJ9fQ== Embedded Images (test code = [id number]) [facility] [id number] 19:23:05 Test Item Value Reference Range Interpretation Comments Case Report (test code Surgical Pathology ? ? = [id number]) ?Case: [id number] ? Authorizing Provider: ?Dominic Keita MD ? ? ?Collected: ? 11/13/2022 0805 ?Ordering Location: ? ? GI Endoscopy OR Department Received: ?11/13/2022 1016 ?Pathologist: ? Billy Diaz MD PhD ?Specimens: ? A) - STOMACH, Gastric polyp x6 r/o adenoma ? B) - DUODENUM, Duodenal Bx, r/o Celiac disease and reasons for anemia ? C) - STOMACH, Gastric Bx r/o HPylori ? Final Diagnosis (test p5cnzKLsMVExu7rfOXOqwW code = [id number]) FuZzEwMzNcZnRuYmpcdWMx GZyxatQeYKxfjSglFKC2HJ OeLQ3ukJsxxNq6qDjhXJVk svO2yVBjOMzfz8riLZE0r6 kenhudDPLiFVxyXb4lkLCm zAaqYpPbWOXgTYx4dS40TD QghQ3knYRaQBa3IYGrzVTj fjNuRpElHRWpmCLwgSS5LI WcXG4bambeVTfqIHujXVZu uzY8UIXbpXTxP1ZpCYOsOG 3ubfkfPDB7FMeuPIPnWZW8 HpStJZCro4Kdpwn8YpLrtU FyZFxwbGFpblxmczIwXHBh pdXYQkDVRT0NADNCLSRTX4 pUORXDIG9XZWBLYppcjZId DJKvEWXyVKYBUG3DXLIrQ6 eLIePgAV1MSEYiEOCwxSRf DQBkuiLYJoCBLS1FOL5WYR wgQklPUFNZOlxwYXIgICAg KKZtLYpBN5PUAEEgTIDZV4 OOYByDGCrzFr6gPNXAIL8F W8qZM2HRRSKCSP6PCOvrSA JeAGSkEHTePN2XYErhROIP KM5TDACYOBOICFuCKGOKEP YWBQuIDZFNL6JBZXjBGJGi qxicRNWwYp8qX6PPGVDTEY wgQklPUFNZOlxwYXIgICAg YUNgXOAWH0QEElNIEB8HD1 9IMPVNNUJKYQ7BAFBXVVaV MV5XFSHXSVQNFPMNW9ZwoY FyICAgICAgLSBOTyBFVklE YB9DYZGFDdVYNQhWHFQhLD lTRUFTRVxwYXIgICAgICAt BN6NBEdfCMCHIM5GDVOCJp dBTklTTVMgSURFTlRJRklF LIYWUVEZBP1GWq5SRBSIJw xwYXJccGFyfXtccnRmMVxz w0FaK1UyCnZwFIhdaoVhMK RyNvsupoooYIJpSAY8kqPl EZWaTIgtOIStGVmlHa6hsA FuwIquToQkMRCgn8vogrZD QRsbWbAgT213GWCgBZmmq7 lri1CfIHJqjPApm7P5SDTY kxmssLt3p3kqQkDwRzE8nQ JmQOaaV8ihoxCvhFHpC5Uz tQDzpKw8yLdmP15vd5E2Xj flH3kqHRGlYXFbS2EiHP5b PRCbPap4LGE5SVN4OZKoWB PxA1XhWF0hRPNbkYQhKDa2 h0rntAjbMVPxNWD7f2biFX gauqL0MR5gic2ltOa1r0te czEgRGVmYXVsdCBQYXJhZ3 UcuRzbXg9nkQv4eDzvGpjo YIB4Kfm9VK1pmd82nie5cQ ztTPRlrhruIbB6VVfuJAFy qwlgXOv5AHleTQYjcAW9TJ SthDHrW2IgFOLfVH6lhdi4 TYG2XUfjGUPqVaL1FQJvmQ NtNUQarOntUKozw232VPM5 RuVnXS9sX6Mnm4K6jQ8llW IbELUpcBFvDrTnNBFcmh3i gRQpXGknn5RmGKM3xyZ7pE EvyGByUQTvXV84Wbxyx6Le FhopOWW1EQVomcOrx2Xvv1 scLiCseuTcG4qaO7WpZZDk UBFhOBRcGtTeojLhr5Zyw2 YffKBvpZi1a5vuRELlUWYt aJkty5orUAT1EIQlZ6W7lS Txr2piWFwxAENxlXI2huV7 JWYngZOlZ4YbdS9eIRVyLK 9ndsv8g2ogOBN2FFyqKUIi AxY1onS2UEVvnVJdKBZhsD inNWwvk449HNW1ExEeTQRn k3SqG9SvoRbgA07zfJghU8 8dOFXonAgaxW1tjHqdyT5k ZjBcZnMyNFxxbFxwbGFpbl xmMVxmczIwXGxhbmcxMDMz TYjyH3bsDnYtIFZyvCzsAL zjk7VjZMKxQVWsYgqmfiVy XHBhciBJIGhhdmUgcGVyc2 9uYWxseSByZXZpZXdlZCBh pMlst8VoM2meJI3tD2UkeH JehwMbduXdRDdtIFOcp5m4 gUKeiVgai8NdyPDnDZ46hs NwQJNwHON5IDMlt6nyTB76 qoetAzZpnX74ooOqefHcEF Bhv4izV5eadOGas3Per8Kq xaMhXAwcr5XqEG6krWYpoh zczOT1KFRmsQDxpqJdtkL2 fQnxFFDicK2zfT2imSbouG 7iWoPkTxQxKSvsCU9mSTPz J4ogrVQnXYHlPEQwQ2niPf CnlS7fiWreRyclpvR1VXUz cn19 Clinical Information Shivani Schuler is a (test code = 47 year old female [id number]) with IDA1. Gastric polyp x 6 r/o adenoma2.Duodenal Bx, r/o Celiac disease 3. Gastric Bx r/o HPylori Gross Description (test c6airXIwRFBjcSVJWWD0LV code = [id number]) XvUX2ngKtliYx7kPfaKCSh sdP6qXPiJUcgp1yzFMT7z6 pzbkGMEndzOFSdHN0eSErw OJKhCJ3sYfVfOPIiMtMdKK BhcGVydzEyMjQwXHBhcGVy fJB2ZHOaNA6baunvAEeyTQ lqCMKlqnU0HHSyxYLtK3Lr QEJuLQ4imevqEBA3YEUKHo huIa3dlQNgxPxlSzHyYtNw YXJzZXQwXGZuaWwgQXJpYW a8bA1AXmrqJGL8DSUEOvkn GtwurPifc2FndXKrDZKlQK xcaWQgNTEwMDAgXFxkYiBP GkKoWeQ1Rsf8SKJ7QzZ7UM t0BZQBEKKuPlvnDQK4AlA9 SNe9SIQaSV4oNOtkyJPsBX beAcuzMEskF441ZZwwGKKq V3UsR3FkFTckIrKcNJgvQJ OrWGDyKLinVFYuK2FSBIBa GIX9BgQaRDKxFJl0QSevD7 WSWCYxLSJqOpL9ZVQdJuH1 WKe8TQKDVs6wTDohQzSmEJ a2KRG7JCi6GkGcCLJlEfXe BDZoHMWrUGawdHNlHZ9euT wkCEWxSU3OXFNyOVxrPOVu KlLgN7ODT7lSRN5jIFxldT JjaFxmczIyXHBhciANClxw RUZzLO1KHCQhZFkaHOu6fk NvHPTyDzKyTPNrY40kb8TJ a5MlZE8VTOi6mdXimqeimE 5iVYEhapRqURvUcQPagL4w rnOQGDavMPBdU5NppzZwRA yiMOPanh2cwDlgUExmLwFo bGVkIHdpdGggdGhlIHBhdG lzadUoS1Z8wmEnGN8pZWCJ XLSrrM4sOBCzHFGxv4QdcG MoySfsE1YnjNTgEzNfo0k6 nUE7UGCxgtHuAICsdWWpTP Rrya3rDRdwJzFxT1U0GMBq ASGnv97bhKJ0gkPoXlHtjR w2oZOrDVZ5KZ6cgEkjnnCa c1p6vT3sDTQbe0K9RVUrt8 P4IHHzpoDjeCNtqKGaJDRz WO2lvjRgBR57GWCbHHbqXJ tsJRF0UMP1WBYvhDGmx6mg tdntAh1bQAkmPM5kQNvaAD 61CGDfCZahVISxC9WiO0G5 OOgsEJQxJPLfeYPogC3szn IlihRvtHr3LCOvXKL4qQJr zNvpUWEdZqnltHX5VNBwZi DfcpIhy6IscNi8oJNhIYtf ZTArqD0ylN8zODBbIPUmqw TZLbymQMMqEVcpz6OtMJtt cGljWHNhMzAgDQpcZXBpY0 0dt2XXc1Mxa1tbkQcci3Jj uFXxPE3jxPYgYG0Lu6mrJK BwmILgQFZ8FPegh9wiVXhd LYS3ILJlUgQdRSPkGI0HJw UmMOzoYFj2AZgxKZz9QBy0 AG2RLbXzYZAbKut2ZxW5Uk UrGQa2CDtgZQ4DYCR6CEOx LVQmKZbvBHE7BSNxQFh1MN IgXFxzcyAzIFxcZmwgXFxu F91brHSmMBxzUdXvGMboeC nkQHNvWFO8VD5PUHKmAoHf E7TSA8wARI9xEydjivPwFU OigmVTXxdgIBKqLR2NYUCh VGzjLJi9udWgENCgFuGaLK VyV22vq7JUz9XnRK2WPTu9 olQmfqoyiG5fOKLlrwHuj9 IzMFxlcGljWHNiMzAgDQpT sTSycN5hmbFPLXftRCWwC1 KlndVyOQwcDAQpgc1ucNnz IGxhYmVsbGVkIHdpdGggdG ewLIFhdIdbjkApI4C1xfJb XK0iJWFHHKMltB5mRSUcSV FkDSIcLKSjvW7hQWB3y1Oc unYdKCRXIWDpeWnuIO09sB BjZWxpYWMgZGlzZWFzZSBh veEevlNtc81jnqDth2McMP 6oiWzfWCtRPNbuKlZfOQ3l NGOwimYcq2ZsTW0tACMesY TuSRFyemgazFKqQAy6fPHp DBCjRhKkeSpqc2LnCPEjUO ubLG25dtAoTB9cZRpgFL7k QOigNA7xZDCuKKNyDAVlBf VggMAaYeSgwKBuYlVnB21x HjOBwMXvt5GvR1zsLO8lbN OiUholgWFhJZZgtGviz1Bw tNGaHMScl5ElnRCeQScoWI 6fOJQ4Dy5gkRPhJCNvkkS0 e6HnKQtbQQXhAnqoHAKyZZ rtd5VxXDSusMAAt3VsGC0B XHBhciANClxzYTMwXGVwaW WBl3TaXCBVFbqsxFqeKcWp uHFeZuQ9WUQueRLaBEN3QN 4bhVgjACMbEUi6YBacSXFm C9UmC0HvQOwxArEdVGccAV KoSWQxVHudJHEyF7PVMBVu OVF4TiDfLWFrLSm5QKshF9 LGYHYjJLJxPfJ0EJI8MsX4 ZOk3OXVIUi0nJVejXsJcHY XzFaA0JLp4ZlTsJLPcHzEa KNNeLQSfEWjuwJGaZT1enN gzEIUgZVVpSSU9NZZvqYAT l6XpOHFfBYaxFjBaIDQCDY NLMT2MRaITUKXgIcHwrTWr DV2SYLQrirNeEFaqsOmysV 6sfJVaM7keHwYwSxjqpBkp TmVzdERvYzEgDQpcbHRycG FyXGxpbjBccmluMFxzYjMw RAKqzIAUo2HuJZFUUoQkKY NpbWVuIEMgaXMgcmVjZWl2 NBHncC2hRl8coSPmqB6wgE SqVNsiDPQlp5i2jAH8vFNm jAM8nMQtlHahQhArRC4iiR CjKLRGMC54rBBzauTqEKDr vX6iVIElMSVdZOS7ebxfYV WKRHR3uEIaa7N7IRxlTPA3 hR3aqGgpRwBaL1A5XHDwGA Unl28qaGQ6ddXjRuZeQRHi xo7mfO0wDCualdZloEenxc Iza9U3XZHeb5B9PWOtujFc aQVyoIDhRLZpFiI5OLDiSo D8GRUdLQObiVHjKOSsGR0k VGhlIHNwZWNpbWVuIGlzIG RgySDlazObRXYpbw72K2uq HMFadT8za4tjIpYfUGJnMP NniKKfbZV5SKPxyO5gjR68 tjUvzqOOWA0paWCpYB7VMS NiMFxlcGljWHNiMCANClxw NHHwWHsvl3CiNOuovQrfKX IkCvNpGRiTuLimDDCOG8tb hFArVSwaZSZKRRtJS3AHXM 8XJFZgvQXSQAP5HX6gNMwp YAPcD9KlP4UzykE8j2dwcL brt2SbeXGpGQ4dxYIyYQ0H XHBhcmQgDQp9 Disclaimer (test code = j2honJPtTRLmu4ftFLNnmB [id number]) FuZzEwMzNcZnRuYmpcdWMx FLfjkxXoTAmbx2AtW6CpCk AwMFxhbnNpXGRlZmxhbmcx YUSwBDJ4jnOeHKJnWGbqUJ BhEWmwAk8hvFXblTtmScUu CRTqd7syssPFAOckOoRgN1 79PLMhJXlkv6tba4PnXXOa zUTzy7E1PPJDsgovvCg9mO lpZ87tl2W6DcxhM3jjUJAk QELwQ5QdJD9eFSMlZgd3EG U9NMG7FLZhKAGzT7LsYE4s MKQdbTSbSAj7g7pmpBfqYA ZwRMJ2l5vhGOpevkGbVR6z ne6jnBp5l6ytlmPuGRAfTV HyuCPBIHDcM7JuwFewLq0j jLk5cSzzMrbhLMP3Whz9HP 6gte77hxd0gJjrDHHjooev QsX5AMdsJWNllfcqNTo1HU znYXCliNS3UBLqbXYcC2Ql PJClBI7kefi6PLN0GJzeKT EfKbB2ZLBjyPHxTEYbsMyg KFrvi663YCO1CzOcQR7qT0 Ygl3O7nS1rpXYrKOQpaGMj QaJpQYFksr1acJInRVivu2 ShIVM8doO7kQYurCKrLFFl WN53Iduoo0AiKbaez0GrM8 2peEN1BIeak5ozDQ6cMuJ2 woBuOAgxj2wohH0sYcZ4ZA qoCO8mXU1kRJXzyN0yzvak XHBnYnJkcmhlYWRccGdicm UzDb6iyXexYWH3TSpbV3yo qA2eAsQ4DAmhT8yviN3cLN f3VFcbdQH6CZGmeP7yQM3e crvee2byZYjaWYoiHAXspb T8svC6ILTouQXgN5QjfL3j QOMiLK4pptokb1meNXO8YZ fnYWUnTQH2DoGxMXMqu6Uu wec3OdPux5DzuIGfPWidU7 3ye515UMPauoItR8azySLs rsmbhQUukzakKQxrreK0GD MoofMzs0MfTZChQAJ9SAxr FVilbTDpZEZaqPkws5nvT7 RscGFyXHBsYWluXGYxXGZz MjBcbGFuZzEwMzNcaGljaF gaMRgkVcWaYYRjXFqbN3gw HgCxW3AuWYYzIoQjgEWoR2 ggVGhpcyByZXBvcnQgbWF5 EDxoE1x9JENgrbIqbUy8zd PrVdObCSLeMQY4WPvknFEu GPSlk5QqifwhiYRlHk3apA IsBRGbaY8iUREcLWRlWJmo PJ1dfOw4DVFClMTlzIGvEq GYZMElEO21yxCwRCBBvdjd f9T1VSigJUAvo8EpxJCtO0 uro5KfTIUzb95qJG7nx3P5 v5hmIRW1JU3sq6NuUWLraB GstZFoWXOqj5Paqwnzu8Fp WVFcmaHrb9ZnAWUefyFdhH ZvNPQdwzUayr0zawNbHLSv TOYiN7FontsmmYottlDlLB Msxm8icoZlQPU9QSNWAAHy JPJuj7WaoL7hrTODGVS7eD Ypnk4agdXNsPPjDUDbkj63 XXCpNR7yQ4kfPOTlDBKngr DdgWZxx0NhRUXfyMB7dPFl QV8UDsCVe10xPQYeOWNGuw VmSVCjyNbsgJB5fnV1qP8u IChGREEpLlx+IFRoZSBGRE ScOL7jsdPyt7NasjZlmOqu LBGsgXZvf3LiqFNyd2KcaG znb5CbmVOpaZWpLK4bRILf clxwYXIgVVRNQiBMYWJvcm W6s2XcZFLvRCBhZOT2xKsw rxr5MMUbeI2cZYDjW9kvuy mvCYptLGUxh4JtqX5xwFAM xZZqk6QfnLBhcUNUvOOkUT 9caaSbONcAPTfWKMB2ylWp GPSqd1UnSRzfA8reO68qvN rouLh8bMX5FPX5zO8zBmz+ IFxwYXJccGFyIEFwcHJvcH JkKHIbqGesyoTcP6PhfuUk cN4miFPzrqDcSK9eHO4kU3 K0nZSwPSJjpgSpu8bgDZgm dmUgYmVlbiByZXZpZXdlZC Adx0VbGRukCRK4QRzollTe bmNsdWRpbmcgSCZFLCBTcG UdaGLaZJX1ILysokShybGu DS5iwN5vlHhhiW6oqFTnfB O6egzoNRZnPEKtvHfcABOw EB1yiVbycO0aZdPhOfVnNM beUQ3uPYDpK8iguECsZHFy DSJlD1poTlWijY0yzCwtES xjZjJcZnMyMFxwYXJccGFy XHBsYWluXGYxXGZzMjBcbG FuZzEwMzNcaGljaFxmMVxk CoNzXUCdVHueO5gvWuTmU9 JkJGBiZxEjxIHiE4fgEHhm CFM4QMBbLD1fqJPaRC80vQ Ase9sqSDjjyTlxzj5uO55n zMNfXPxbiDelTTImm07nl7 NmGXTiamKaje6uRAGagxJ8 vP0iBWMiuOhqNZZfhOCjDB Kyp8TiEGnfqCAgemVfYWtm FMQkCWNmeSJkvsG5aiNohk NbyuPcJWMtkVpxYFTtv6Ui IZPeMHqkz6Iqss4msCCaTD UlaqRYkLnfaCTxxS8lI3Sy ORHtVEZanb4iEKVcfQ6pRB fav4XfwozqTHQgLAZcTFOk jgLyzl7tCRPouXEQPP9GLE lmeDMdy6IudzTtP8bDORP7 NUQwNjYwMjgxKSBleGNlcH RvTBCrlz87TCWygH3seQyh PYRjsS2jpM9rbPyhnU5vVz KkFqMlMUxrOQ8fYYEhW0fm mVWpLVFdMZSxE8fxVdGriG 9jaFxmMVxjZjJcZnMyMFxw YXJ9fQ== Embedded Images (test code = [id number]) [facility] [id number] 19:23:05 Test Item Value Reference Range Interpretation Comments Case Report (test code Surgical Pathology ? ? = [id number]) ?Case: [id number] ? Authorizing Provider: ?Dominic Keita MD ? ? ?Collected: ? 11/13/2022 08 ?Ordering Location: ? ? GI Endoscopy OR Department Received: ?11/13/2022 1016 ?Pathologist: ? Billy Diaz MD PhD ?Specimens: ? A) - STOMACH, Gastric polyp x6 r/o adenoma ? B) - DUODENUM, Duodenal Bx, r/o Celiac disease and reasons for anemia ? C) - STOMACH, Gastric Bx r/o HPylori ? Final Diagnosis (test k0zdeBIfRJMhp2yzODByjW code = [id number]) FuZzEwMzNcZnRuYmpcdWMx WFzkjmAgHIyrnWzgCPQ5GN DbHC5ouOgxhGw3mCuzHMBy ysM4rSIeJHgzs7baLGL0j3 xmsfwiNGGgUZrfHx0cnGRp cWweYjXaHRPvAWy2oN76IF DrnC4soWUyUBn1WFXazSYs tnGqHmTiVKXkkLQxxUQ5JI HmEJ4gifwsRBmpDXunUEMm afQ9NITwdUHiY7ZsLJFrMV 1vdikeSND7FYwrRNJqQBM6 WiTyOFSxd3Bdibx8JeNrbC FyZFxwbGFpblxmczIwXHBh khYHQxNGDQ2DWIPDKGVWP6 nVDYZCPK2BLWBJWmpsyXJh MJJhTSJbZEYJCP1TWCGiO1 nDWqIuJM4ZIHMdOWEtlXGl SBUektHOKpIISP2WIO7HOP wgQklPUFNZOlxwYXIgICAg UQEeAYdYR7IZOBTfIZBUH9 FCNCpZLHeaWx7jYFGBYN6F G8vPT0ESPKHYDL2VSHcaRX SgROAiNQKvNB4YYXlnPDFR LY3HZFDEIMERXZhMKKYSYA NVPChMSRTWL8OZJMcYPQEq fqwvATZuFt6jA3HDPKXKCM wgQklPUFNZOlxwYXIgICAg YOToJWPMX4MXHfLZKS9NP5 9ENSPHWQNNUY3PEQLCVUbX OC2YDADZLHQRXXNIX1WlcJ FyICAgICAgLSBOTyBFVklE AK0SYKQEJfZPIIgYCMChPS lTRUFTRVxwYXIgICAgICAt WH2YWLraSOXFHA0JRECTAd dBTklTTVMgSURFTlRJRklF PRTMQZZBNO4YHi3DPQCWPq xwYXJccGFyfXtccnRmMVxz c1DbT2YmDgMxVVbrvhGbCV VsRfbblnexFUKkEMD0hcBl MTKtDAuwCRQeXVjyYc2cjD LznJgoLeZnAGAle2etogWE VYxlYpPyR595GQZyVCmwx7 fuj3XuGBVdkOJmp8B7DWDQ nfgrhUu8w6hcMwAqToV6gH MjMOgoR8cbijNssDBcD8Vg aSTalJz5eUscX35nd9K2Ea rlP4bdJXWyGCOsQ5PhUO2s CQQiNgm6SNV3QUC3PWEsPW SiB0IwJY1wHEXniWXiWTo0 d3bbkSxsWTYhBLS4w0ehFM ndceA5WZ3cmb7gdKa4z1yl czEgRGVmYXVsdCBQYXJhZ3 RgnUorAc8vkAj9jGjlGcdl TSR5Tql7IV2kae51mdl1dU jcNIEnsbfgHuW3NAtbMITn xbwlZYf6BPbhPYNqdED7PC VbuYLeW4WjRQAmJH7pjme6 JCM0HPsyVJHzQzZ4DKAgaE AbCUJxqBeoWQynh212JPW8 FeGxPR7wE0Qsl8U6kY4ajD RsFDZkmPCgTqOxXLVbwm7t cEJcPAykv7QaSVD1skK5aN ZadKTcIBJiDJ95Hnmza8Bc CyhxBQB9ZUBfovTbz0Izh6 hgIbJwfkRqN7chR1LoNTIy XRYdWQLeSaNawfOvv6Oei5 BddQGzzDs3x6fgAMCtAUDl qEjug1xdVJW9GDLqN1Y6pQ Ldq0sjNKgqVKSjyOZ4eaF5 TRYbzUGiM6LnqX8uCUFoMA 0ggha4w0paDVV1XPuxSDFy QzC2fiX9YVBtvBVvFIMmgU rlJLcjw353BHX3BgPnWDVu i6ZmY4NosWkoA38pfYqmO9 1lMMLkmOnqvF6ltIisaY5l ZjBcZnMyNFxxbFxwbGFpbl xmMVxmczIwXGxhbmcxMDMz AMjeG0txCqArKDWanLrqWW fth3WjAJBwQGKwBdsjcwFk XHBhciBJIGhhdmUgcGVyc2 9uYWxseSByZXZpZXdlZCBh yDlha7HtS3iyZI0kQ5TpmC VswbUpvtJbDCghAQVnr5l9 yCZyoQycs7XpqSUwQR50an OxQTMeKCL7SNDvy3ggFN60 peofZxDijU29zvTfsxDnIE Lpb7kiP1jpnGYoa8Qez0Dr ojYiSMegx2TrNV9uhYYdcd lwdFY3JSFpxQXkomDkcdO9 mAooTYNcnW5keM1ewHdknP 0sAiHsTxAcQAdoEB1yMGQf A4unhIWvMESdOSUnW1voKx SrnS8zcJmgQmzblbP2JDRx cn19 Clinical Information Shivani Schuler is a (test code = 47 year old female [id number]) with IDA1. Gastric polyp x 6 r/o adenoma2.Duodenal Bx, r/o Celiac disease 3. Gastric Bx r/o HPylori Gross Description (test z1ecyFSbIGOqiMURBAQ2LS code = [id number]) JfIX7boSewaNf9uXphBADc cdA1yNXxUUzhy7sbJOS0s7 oxnqHRTvcxFARpLD1bATpo NXDhSI7zZxUvQVWtNkVcAL BhcGVydzEyMjQwXHBhcGVy tIW3PAKlAP6hjdizGJqgUN uqCZNgdoH2SMIeaPHwW4Tz HYQmHP7gzpymPCL3OEAHTy omFe2ywVPzhZtuLqEvVnLa YXJzZXQwXGZuaWwgQXJpYW w7zL6NOeksKRU4LOKJOhig BpwjuAeph8QnaZYzTAKqRG xcaWQgNTEwMDAgXFxkYiBP DoWqZzP7Eic4NDF2GvG8WB b3KCGYRNZiDrjdRRY8QeD5 LZh9VGTnYM9aTGghtCLvOX hsDqzaWObzM675BBeaHCJi J3QmS6PmCFfeFtUrQYnzZG OpNLKiICrdDIApC4AGQIMy DWE0KgFpLQWpKTs0RIozA3 FOYUBxJNZxJiD9UDUyBnZ7 IKi4PRZGJr9lTStgZpFeAD a0XRK1ANn3GeDtMXInXuIv KLAhCGFiCUrdfEHxXB2udF eaJUBkYT3FFRKhVKjwFLHd GjPdX2DWX3uRJV5iBHnrhX JjaFxmczIyXHBhciANClxw YYRsQY6IPSUiVKtsWJf9lk ChMQEqZyVxVSGeW63wd0TF v2FwSK9EUWc4mzXhrnatoQ 6uOFVmwrPnDRdScKLrxD5v rdTTOFdpJGXwP7HahiIyZP uqSCImid6slDqgKAuxDhFr bGVkIHdpdGggdGhlIHBhdG cyxlGaJ3E8bnKsZP4wMXVL OQDghC2nRLKfLSAcy9VsgL ZgjCugP0EfhHNvTfEer0h5 vSU7KWIxrnLlAJWetBFsLL Bcty2yPNvcSpXuK6Z7HJLx JSJpy11onQG9wdGfUoIpsM x4lVQnCYZ1HT3amXbwqrRf q8h0wP5qUPCdy1Q9YLXbu2 Z4NHDmdjXgtNYzlDFuRDUx MY4yjoBzSI55VOUvIXqdDC xsBYB8CLU1SAWccSQnk0ih xmngRr2sVFxeUS4gGFfeFI 05QILgPJpqADJtL5YvO7M0 UZscIFTdSWTjuGOczO8zdn WbayMhkSj7CUWxJRC6iXYh nGjbOJSeNwqrtME3CVEtJg KqttIce0MplZa5qRKxMNog NXRuiG8auI1uUALjLEAspx YQSycgLZPbAInqd6VbSNhu cGljWHNhMzAgDQpcZXBpY0 4uy0BXp6Pqs5cvtOviq0Hj bHDiGR6qjUUcQU4Lq0btXA PemLMxLLD3RYehe0khBZmt HVJ3IZThVlOaZXPgKR7XDo MaRFldPZn2MVddNEw8VKt8 MH7PFdWlERNdXut8XdL0Yo BaIFd8JQzwAM5NTLZ4EQPp AUDtZPsxDSQ5EFRsEXv1FJ IgXFxzcyAzIFxcZmwgXFxu A00haNSkRCizQrQoSTqznW jgIOReAOD0MY5ZTYCgMpXr G9WKV3xNNX8kDzmdngXeQI VcukNMXhrfMVYeON6EZMAm ZMkvKAf1gzWvFBDbNkGsAK AwQ74xy4MJa6NiWS0TKYv2 csNsmxuimI4sYMVlbhFlb3 IzMFxlcGljWHNiMzAgDQpT yMRzmA7rshTCOVjfKIWeX9 QystXlHZywMQGhhd8ntPwb IGxhYmVsbGVkIHdpdGggdG jbZVZzpHhlbdCrC5D2gyEa SL7rDIFZSAFgzT4iMQZvFL EzUIFpQHQqgZ1xWSK1d0Vr zsQaXOJQOSXhxGkvVT37nI BjZWxpYWMgZGlzZWFzZSBh ciPddxEly15ahxZsr5BsIR 2kzDrqVFgELTsfAlMbVM8e CBHrvwYhl2YhPT3mMMIssS YqGYBhcjrtoVPcLJg7zHLc XCWvBvEzbQfrd9GtOVSbAF bgRY91vuDoAV4lLUsyQK9u NCkkKT3wQCKbXUUeCFWjYd LdpCMtTnEshLFbQsElC00v QgIIgWFnj5IdJ2pzIX7urW LhQdaxyIJnLYArvPflm7Ll dFUlLRJgk1DtxFPyDVdzWE 0fHUN2Is0dsVAvHFVifoQ9 c3YmDQutDZVsYpmyJRMcAA wrp2DzTSYolQJCm2NiMS7M XHBhciANClxzYTMwXGVwaW TPp0MgZPKESwtxfXsvQwFz wITlZdK3ODUsqEQcSFH9PQ 9igStyXWGkGGb3BKgaUGWl R9CgG3NkPFqfTpGkWWnlAL ChBDNzJGneNQUaI4ISKBEw WOT4VmWuRLXoGQn6RRlaX5 AHWEAqSKQxSnG3VPB6HxP8 GYu1INYWKn5iOCfnVqCcQW IhBxV6TKm3ZrKbGIFwHwKy BVXzQXGsSZunqYOlOC4gsP tzTBEeFCLlASY9ENMerKTW y9PfEAOkRNcaIcRvMZPIYL GENF5ROgPHOKWaThYbdALf CR9NADQlrqEfHPydqCqbyO 9avQCrO8eyBvTfSabkxWjn TmVzdERvYzEgDQpcbHRycG FyXGxpbjBccmluMFxzYjMw DWCpcOVKr6MjAIMNViJkHZ NpbWVuIEMgaXMgcmVjZWl2 WIOrbP2tYa0pcBDeeY4cdW AvDKaiCOOfd0b8gHX4pTFu cAV3lGJixJnbAkHoRG0ozN YkPDFXMU72uAMwgjHlBZEx lV8eUNAuOGXfGSZ1dcvtQD RBOEB1jVVmf4M3TIdoWJJ2 oV9pjBofIzBcF1Y7MVGoML Iqg88mfGZ0nsGlLfCgMXLq xe7zfV1eDTlaixQhuNmwbp Fai7D7VEXlx4V1USGowgTh jLYpfBUzTYCiOnK7AKBfIu B9OOFnJITctOTlMIBqYR4t VGhlIHNwZWNpbWVuIGlzIG WsuGSwhhCjPHWied30O2ya PDQgeT3bw9xtOxStHFUdEQ XrmJFqqGI6PAGypZ0tiP21 wgLguvYQII4fwJOcAF0KBW NiMFxlcGljWHNiMCANClxw XBYvGQwnd3WrJCjnmEbgUY CuGiAdYZzGzEgnYCRRS1xq yPUbLRmuOPYMELsLF5ZVUI 0OXNWftPUYYQF2JO3tBKmv FGUyX3ExH0TeuoI5z0hkiN dzd8OvbLFgHE6rsUBpPN5Q XHBhcmQgDQp9 Disclaimer (test code = v2ayxHPoZWNsf3vnBYFlvU [id number]) FuZzEwMzNcZnRuYmpcdWMx VTiumgWjRJume6ErJ3PrId AwMFxhbnNpXGRlZmxhbmcx LXWnXMW4zaRkLNNsAAiwEB JdHJxlYp4amYErwFbwEdWq RJEim2fzlsCXZFbjIpNiJ6 19WCCcQJiso3qxp3QkFFQt vEQzv3N2OFKZonbmcTs1vS ucV90ku5F9TxdjT0wvVGXg PPZgK5NlZX3sFCWkElh5GG U0WDC4XWHwSHQrR2DrAF3j HDNgzQTlYOe1r5tlzAgzEE SyAZZ5t2gzFZhejkSnUN6u zy3nuPv9j7hykyFiSPQaTC VjuPZUIHLeX4JxkPerTh6a zDy6vBvfDnmoIJI3Zji8FV 9obp53xrw6jLbxQJJoockj KcY8OFmzXGRglxawOFs4QS mgKFZncZQ4TKNluMOuS6Az JQItPR1fkih0HDH4NTxzRL RiOzH4MZQcrXZtBXRnpHfe DIgrt738NJX9AoJxUP0wG3 Rol8G6lY5zeQHqEFLexGLx HfWrFFMjkk6xoYKhJYmif2 KwSHH8vuY5fMGsgPTkOHSa ZC96Ncujv4BvFfgib3SaN2 7jaCQ6AIefk3tpZQ8bWfN5 voLyGDvyu7zajM6vIzY4FN xhCV2vWI5qXTHgnV8oxbog XHBnYnJkcmhlYWRccGdicm TgDo8ywAknOOH5PVpwH2bs qA3hQgQ8LJvnE5jaaY3dQZ z0YMkgjQZ2NNYrhC2nWY5n gmppj9txRFbdPMrdCSFydc I8bzA9XOTwaBZoT7KarT9w EZGtMQ7ytuzpd4bjPAS1BG maNCMuYLP3ZeVgXGTsq2Lk fiz5BkGhi9TbvXNbUNjyN6 0bd157XDHlgzAiC8oekCCa toucnTTvueefHVtfpbQ7AJ HzeaClq1PbOYVcWKU6NObh HDlbaOKuLFUqzWswc4cjS5 RscGFyXHBsYWluXGYxXGZz MjBcbGFuZzEwMzNcaGljaF alJCssTsBgYOEcSOvsL2od AmClH7XoOALyMjCmvILnT7 ggVGhpcyByZXBvcnQgbWF5 MAqzJ7v2OWHceyZabVp3rm PmFfLcJJLcACJ4FUwjgQCm GUDsj1MtykcnbLHlHi6xcX DnJGZflX5gQTYkKOSpSTgg LH0vvZx8ZRGTuBFbdNNzTb MGYCQpEC99ufMaZUWZhovc i5U7GKavBDDyr1DtiPYrZ6 cxa8DoQMHij09tRG5jk5E0 x1olLCV7RK4uo7SeTSAykY RexHKsSKGfu7Yxcqjoh7Di IXZuysVke3NpNTFjnuXwkN GwWSZfsaOkfb4twhKePFMm CFHrL3VffjngkHvlgePuDB Hcsx6pxhEaQFC3EDVTTGMq FTUpk0CigS0xdWAGLMA7wN Wkbu2kteBNbNBgLCBqcr99 GLPaZW6wN9vcVIHqSJTojl GcqNTln1TzXXKqhXD3lQTe MS1STaPBp25vZLRqVAJFhv BnTODmlXxeiKF1mjT5jP8p IChGREEpLlx+IFRoZSBGRE AoYC9qjnEob5PifpHtdTjs DPPnaEUmd8BbcZFqd7YgjD wki5IsyEQedEPkYA6rGBDy clxwYXIgVVRNQiBMYWJvcm F6n2KwEKTsBCUoDSI2tWyn tct1KAUsuJ2bWWKpQ9yxvg gpYCslFYMkb7CxvE8enPOL pOTuk4OkqTBxeTUYgVNyEN 1fvnYnDNnWWPjIOMF7caZf MWHnt8RtRYqtL6eqW33qiI vndWi5hOA6GYF2gP0fNve+ IFxwYXJccGFyIEFwcHJvcH YwUUByjObhrbWhN0HgxxGd nO8tlVEbbtCbZP3dCN3cL7 B8uJKiIEFeklGpq2enFLnk dmUgYmVlbiByZXZpZXdlZC Wve4SiZXeqJIL4KOkigrSj bmNsdWRpbmcgSCZFLCBTcG VhxVXuGOE3LFkbmmNzibTc GG5uaM4xlCdzeK9qoQMmgA F6htnhDWOsZHFztTuzSRJo KY7wbGixcR3kOsYvMjQyUJ fhHH8hDMLkJ2ppqLOgFAOu EJMiJ8ygDdTrmV2bzJtxQS xjZjJcZnMyMFxwYXJccGFy XHBsYWluXGYxXGZzMjBcbG FuZzEwMzNcaGljaFxmMVxk RgGyJGTuNQbxH5dlHsYvU2 SaWRYzIaUgvOTqH9xkWJwl WDE0GMQgAB6rmVCsJQ26gS Pbr6ltCOflmJvunf1aZ98h jKLdFCwqoIivWHDhz97ie8 FbQQRijzGqky8cQCSbnxT0 uQ6wTPCmgWffCBGjxQGpPA Opr1GcPLpulFRitiIyDQgg YKVnWPSseEXpwbY0lnOabh WaweItXDUsgAxgNVWll8Af IXQgLZbls9Scuk3kmLSvWL FapnZQpCaclYLyoM7zK1Vk DNGpEXLrre9sLPTmnK2vST hco8LomhvxGKIvVPWdWZYe tgKxos3uZLIooLLATR6MMQ qjqOJty5DsvnGhU4aXBGU1 NUQwNjYwMjgxKSBleGNlcH IqGKYbms95JVAfsL4syZay PNUqyF1eoY0plOheuA0qDk ZtPoOsTDqdDD3jJAFxV7wr zPDkDMSuFQSnK1zzIsVwvB 9jaFxmMVxjZjJcZnMyMFxw YXJ9fQ== Embedded Images (test code = [id number]) [facility] AXKN2834-54-50 19:23:05 Test Item Value Reference Range Interpretation Comments Case Report (test code Surgical Pathology ? ? = [id number]) ?Case: [id number] ? Authorizing Provider: ?Dominic Keita MD ? ? ?Collected: ? 11/13/2022 0805 ?Ordering Location: ? ? GI Endoscopy OR Department Received: ?11/13/2022 1016 ?Pathologist: ? Billy Diaz MD PhD ?Specimens: ? A) - STOMACH, Gastric polyp x6 r/o adenoma ? B) - DUODENUM, Duodenal Bx, r/o Celiac disease and reasons for anemia ? C) - STOMACH, Gastric Bx r/o HPylori ? Final Diagnosis (test g3nhlVElXAAnx8jsTTIrdW code = [id number]) FuZzEwMzNcZnRuYmpcdWMx GJfovyEjLEykiSvkOOL4ZJ OsSQ0qdKozcOt4cBcgFIIc nuP2nEBoDXydg6qjRHF5m2 sgcmjiUHBfBNinBy6cgJIw xMbhDcSwTLQzOYf0vT43XX NhxJ6gjFFyKRs7TBPecVNf faZtFlFdKVZbxCSrgTJ8PK WgEU3mpaefDXlrHEuzAIAq bsW3TCQdeFCrS9KdXICnLC 0luymvNBA1XHkqBVFdUYF6 JvPqODZip4Oedbd6TvCweI FyZFxwbGFpblxmczIwXHBh ghETEzCMIC6XOWBUUCPAR8 lYYHRUNZ6MRCKRMleeiMPs KKSoRPRkSUCWOX1GWXNyF8 fUOgByFR8BMVZpDIKtmPRo KXUedmPSUnYTJU8ESO8ZXX wgQklPUFNZOlxwYXIgICAg WKYqNJcXP0BPRFNxRVKBY8 FTUUeZHMgzUt4tBAKNLG1J D4oWN5UKPDATWG5UPKgeYK WiNZYaXVVlBR2SPSraYAYH PY7LHPOTKPRCMFsZWXABRQ UYESbXOXFNA4QFHTjIFTUk ecrzLRFqAo3zL7BHNRIUVL wgQklPUFNZOlxwYXIgICAg HMSsDBPJJ7RHTyGIDR7JI3 0THZSJDYYMUA4MGBIYKEyT XB3MWOFXQTPBSHHLF5UpaB FyICAgICAgLSBOTyBFVklE WA0FOXLISrUFLUsOLAYcRD lTRUFTRVxwYXIgICAgICAt LP6EQFytABXJTP5DKHZRNx dBTklTTVMgSURFTlRJRklF HJJTKBUZXZ8LJm3YGNHTKj xwYXJccGFyfXtccnRmMVxz d3RfD2JjYdRkUTmajuOkUJ AdBtzzavdyPSVrACX4gpMt IUAbHRblXTFnEYqvMf2skG ZqmBxuOkZmRUCde3ckyaEO MWajXkWyH148TNRjWAeru6 qdx5YxFBZfjZVmd8H8OSSK moltdVb2b1poUiEaUbS1fO WdQBwpA7hginRocHXaI8Kw iCIqaFt4lNapO60ll0J9Of jdY1lnENWpZANpE5CsLF8t JMTiVzi7IKH1LTN8SCRmKQ JdW1DnIB2iCIHcmXHcVZl7 g3hmaVhhUVJlLJT0l2jvYX yilfP5PT2tkz0uzMq3o4zw czEgRGVmYXVsdCBQYXJhZ3 WlkNcrNi0mnJo7pMwcHrhd PKY7Opr9YY6zkv44rmt8dK mjACLejmviOyO0DOfaGAQt ygnbXWd8OMrgAFGhcTC1RQ YktVItQ0ArFOIaWB3crsq5 VAM0CHjmDVGiCfN5DXDgaI UxMCDdmVxtYQslm050AQY4 BrHqRV8gF8Son1W4wB5srH LiGXAmsJAmVjNcSQGpme4s qONkQWpru3SeHRU9qgX7oK PejMEsEKSoIB48Gulvf6Pu HymqGWZ4GPVqexOnt6Pxv7 peZoByjlYpM3tbZ6YjKQGf WNWrYIQaTfRlxyJst2Dqr3 SwzHWruQl6o1iuTJZoSLDi wVcsn6mhAAL0RPBlC6D5vM Bci0acAEhzFJIutNQ4pcX7 PAKfaPDvB7WygP2fXOWnOE 9ianw8y7ozZCO8WJybWBYz CnW3itO0NCJkhPAfDCRmpG shRCckw109HWX4XqCcXREh z2SuL7QfzMmiV12fuJhzA9 3bNPSvyQxgsT1nmWwcwJ1e ZjBcZnMyNFxxbFxwbGFpbl xmMVxmczIwXGxhbmcxMDMz MPbuP1txXzPcSQSzsWslSI abl2ZuWOVxGDTxKblufzGp XHBhciBJIGhhdmUgcGVyc2 9uYWxseSByZXZpZXdlZCBh aTgho8VoX2kqMK5gX2HxgR ApqqHjldGxSYkuCFHnp6d6 rKKcnTqbw0ZpwTMnIP26bo CeTQWePTH1MJGxp1hnQI94 pgrzRiGfvT51ojDqqrSxGW Ywg1tmY5ryiAEgz3Rsh3Az ncNqMThsz7VvVQ4vlJOjqm mikRT0FDUilZSnneNkelD2 gDaiVJOrmD5hxH2pjCfpzJ 6wLbMbNkWmTFpzTD5cJIMo O4csqPBpPSEdJYHkB4olOh SqqT5jkUdoGylkyyG4ZODo cn19 Clinical Information Shivani Schuler is a (test code = 47 year old female [id number]) with IDA1. Gastric polyp x 6 r/o adenoma2.Duodenal Bx, r/o Celiac disease 3. Gastric Bx r/o HPylori Gross Description (test y4zqeJUbUHDvwINBHJY5JT code = [id number]) UrHV5xpAlmnKd9wIplKSMm mpJ1cIXqTPokf8hcMXU4n2 iwhzYYTeymZBXjBX0xIQxr UWTqLL6hFySmZVWnKfFzEF BhcGVydzEyMjQwXHBhcGVy qBS9VFNyLN3gfoifZYczKK ksPEKeqcK1AVPgnAExM1Jh KEMtGW3gobzmCWD0FEVHPt wnWw2ncEEwhBviYxDvAmCv YXJzZXQwXGZuaWwgQXJpYW c2rW2JKzirHIC6IMQOPzvo WjboySyzz1IyyPCqRKIiZA xcaWQgNTEwMDAgXFxkYiBP XzSqFvV7Thr9HTW0NfU6FW a4PEJFVSZyWemwBAX9CsT3 XAa0SXAoXT1vKRyizQGhCH uuLapbPQkjT481YNsuORRu J1XuL5EqYZgyPnTeAPurCE VvIZVdFFadUHHuC7NBTUOn HMJ5YiJtELMjOKx1YItaZ8 OARTJjXUIrXfS5MAGeCmC5 DBd1ERDSDb3pJIubZeWyDR k1UHP4MRs3UmYhEZNvHwAh FKRyJMLtYPswsNAnTB0zdH lbEJZyRW7INDLxIBgxDEYr YtXnO9QCC9fGNY9rKPkexI JjaFxmczIyXHBhciANClxw WBSkJR9GXWKgPLloMLj9ue NuDVYsBjBqJIKyH49di2MO v9DjAP9JJPo0arPjkgmxdD 3fKXVacpGjJNpWuFTsdI0t ljAVROkdPWVpY6ZudeRnIM nsCHOzri5gbFnlVWwtDrPr bGVkIHdpdGggdGhlIHBhdG fpczPgF6E2agXhXG6iGGIM MRBbiK7bWAKbITEkj0UcfH AjtVmsJ1BmhEGrJoNgx8d5 bMX1ZSKfsiShHNNqwUNaFA Njme9jNOsiUrLhY6T8SODu GRDfa86rgJG4peWlUiVmiP t0yCXkGEV3SJ8ajYsldhEo q3o8cQ1eJBDwe6P1QSWpq6 R4YDVhtvUtuVGgzRHrVECd FQ8nevKzUZ41NWBfIYnsYS thZAC3XXM7ONIryMKli0va gldcVz7tXFhuXG7eZBolTK 30CGDdFUsfITKaD0UbT2F9 IKoaEDNhLUTldIWdgH8oai TrctBjeRi5NGTgZON7lBLs aUkfMJOaYwntmPH6WJMfEm EltbQfg7RdsOo4pQRwJQqg JDPxmB8ffW0oSSZwXZEgoz FZAdogSAWqCUrmr7KlLMam cGljWHNhMzAgDQpcZXBpY0 1hm5MHo2Mxh0xmtAdol4Me sKDeYW5vzXDbRH6Kj6eqTG XqcXOtHJS4VRqsz4exTLmf FOY7VAIeYoGcYTTbHO8ETx BtDHveIJv7KXzdABf4TCy4 KC7MLmPjOXRsWyj6HyK9Io FdJSi2ZGrvWB7OQDB5TSFf RSYmEVsdHML8ASKfHKv0YY IgXFxzcyAzIFxcZmwgXFxu S33mhPTpWOwjIuWmYBfjhQ yrYCHdOXP3AV4ARVRrMzEn I9FWF3kJBM7qVhqqfnIrLI LfxdIFTyexYOJyUA4TUCIi JGggZWl3yyIhWKYdGsJwPF CeX89wa3HZo9GpPE7QDQx7 qyRqyfkfyR8lPZAcvjMyk8 IzMFxlcGljWHNiMzAgDQpT iYKxyP2wenMMIRlbJYOqD2 PxjnNfACtpZQUrbw7beIao IGxhYmVsbGVkIHdpdGggdG yjXZBlcQnsozUxR4E0zaWy OP8vFFJIGCMgsB0kVDBaKO YqKRArSNXseZ3rRNT9h0Vz zeAvORTTHXYevTzjSP11wX BjZWxpYWMgZGlzZWFzZSBh kfVrfcOms92hgpFig7NzLW 3nhKlnKPmXKWmbDyXtJD7b HHWhvcQmn0XkXI0dPEHgsP XkCJTuazkzqDEbOWd0lSNo KRNnQeYqpJtgv6KeDMBfWW krUE16irHpEM8rMAmrXX1t FMaiLU2sKMPzKINhGQVhOr HomOIrHhMvnUMwXeMgS31l CrYKkOXeu2QwH9gdDL7neV LpEitgiWLiRDJvwKoyj0Ge bHJcUOHmm9QkkMAxUUzbWF 2jYXN6Ew6qfFZxLHDocvA3 w5EuPXnhKMVlQpifURMlDN usm2LzDWFqyMVJs8ZuCC0X XHBhciANClxzYTMwXGVwaW WXt9KkYHPGPghvwHopUhHq vTApOwH8UVIilSVvVTN2JD 0tkYbgEZVdQCj5XVpyDOCz N9GuG3XqREokIcKkHViiCX MdYXEoSTliQHHxI8GHMFTj AGL1JnHbGQJiODp4MKaxV0 LAAEMaEZShBvT4QJM4TfX3 REx8PNVWDp4cRDrmArIgPT XjDkY0SOk4WgKfDKGuVqBg TNPmDUJfMHrkiKHlIT8kbG oeDURnGNNjJCS1DDGahTAJ l8KsPSCiZBtgWyTpYELVQA OUZN4IHhNZRFWyTtIwrZRo VW7WIXPpxgYsGMlnzIvwzC 4jqLMoN1bgHfIjMghkoWjy TmVzdERvYzEgDQpcbHRycG FyXGxpbjBccmluMFxzYjMw BOVkcDPXo5UjQNCWRnHzWF NpbWVuIEMgaXMgcmVjZWl2 BOJhwW9dWi1kjTAicJ6bkN PkGYykOUCas1h4oEM5vBYz rHJ0eOCpjSpbCgOyES6elE TsDZSNHC81fHVwjpSlOIAe gY3eJRPnUFJdPBX9jcfwCI SODJK9zITge7L9ODhpUJF2 kC8skNzpIbCnU5L5NFGqRH Spz52muMH0knGoCsUrYOEm gg8jbS6uXIncogGkfOyqsk Kkr5E9JMBth6O5AMQhknBz zEDccISbHFOsJwX5BFWqLw Q6EMHrXQFriNGoUCWuVC5j VGhlIHNwZWNpbWVuIGlzIG UgmTWjxiRvIJQfzs51Y5ah DABqgV9yz1vvJaYuRCPrYR FtaAUpfUF1RHLorO1wrV00 mcDqdlVDIM7prSZqGO9ZTE NiMFxlcGljWHNiMCANClxw ZGZjALrfe0KpREbfaFcqVB RrCwIwQStIuYmzZQWLC8ki lBEvKCxsUDZOMRoDI1HHHX 8WUOYvfQNKKYV9WR1aHPcn OHXvZ5QwR9AyugE8o7noaD glf1MduAPdDZ9ldVVxJX1K XHBhcmQgDQp9 Disclaimer (test code = e8bnvGFpFJHiv6ahSKFbdD [id number]) FuZzEwMzNcZnRuYmpcdWMx WRdsbwQdJEbay7SlL1WgBg AwMFxhbnNpXGRlZmxhbmcx UBXsRCC5htNfKDFjCMmfGS XuWVppSi1sxUEbyRbtPxWo UTBwa2stkgNWUTwjHkYzH7 70VEDpCMydd8zrw8NfIMFl cVNog7I9OWDYtzlnmTv2jV qaX60ez9Q0FcufU0azOXDd CKLoY0QkDJ0bWJJaWii3PM F4GZM4IEDnYSBdE3GhLF7g LNFszPCfCMa0p1uzzDvdGV GmFED6l5tgJDwhdbTwVD1w mz6jqYd9t2wfmyUkOWKiAL CpnKIIPFNwE9GxsOivBh3z eZr0pCnbFsftCCH2Zsg4EN 5kae78idr0eUxmBLJazltg XkS6HWlhKEHdenohJZp4OK vfLNUznDA6FWWqzGZuK0Kw RJDaBU0evgu9QRP1IDpvSI CuNlZ6EVJvwXJlURIziEur QBebw199GOQ0UuJeVX9mD5 Bju5L6gK6nsAPjPIOgwCLh XfEtZHUfem5nnYLiSCqcp9 LbLBD6vkK5cDNoyHCpKCLz UP48Fblaw1SoJfwja6MxY7 5cyIS2QXpjj7kaQT6tEiE7 ciEqSBioz4cwmU4hGgN9II jeSR7cJC7sEZUknV3bpfqs XHBnYnJkcmhlYWRccGdicm OgOu6ynKjyBZC4PZelL2jo qF4vMhL2PYbzV8zrrP1rWA x1EGlunCS5YOKjaE0yAV3w qjosy9ehCJekPGfaXHHgtd S5ufJ3SARnmVQcO9TzzZ4j LGVyNG1lrhtfy6rbDGL6ZC vhAHPfURB0RgXzHOAyt7Wd ioq5JaMwz8UmjGWzRRjsZ7 8zu825LTSijrNrG9drpDGh huynmVOeovhnJIjprtU1MW NconFbf2QwPRUiUIS5ZRig DKymmKGhAGAvvGrji4jwV5 RscGFyXHBsYWluXGYxXGZz MjBcbGFuZzEwMzNcaGljaF vlYUeoSxMwIWKmCNhhP6st HrHfQ2YnTXEfRiYcgOTxU1 ggVGhpcyByZXBvcnQgbWF5 BRabL9l7FHNainSooLf8cy JpFfLePMMxTZO7ILqoxJNx DUVkh7EtczrxhEJhGh9moC PvDPSelV6wJXCtENQwJAtz TA2xsLj4CTXTjMOdiOKsYt VWEGUfTS83qoKkQUNXlymr j5S5YRfvBVKfc8LreVCuN4 iqg3EsYNOis13qJC5yy3J9 u8xhLKY6JQ7sr8CwRKNzaL BnhLZhNDWtl8Amykcwq1Ec DGBqynNie9PaVZQjlpLunU PhSWXuocRncu5ybyUeDEYq WORyI0LarcctyQybzfAfOS Iqnv8swdDeFZB8NNFURALp YPRra2HdkJ5nzKFSFOX7yV Rvta2gfkBEtCEqRIIjes82 XRFbDN4oH3hqSUVzHYGuyw DtqVYlx6CwVKAdbEB4pARv EI9WCyMSv86mFVFtIUEEyh AdWEIzfNnqeJX5yxF7wO4e IChGREEpLlx+IFRoZSBGRE XzKR6rbxLuv7XyujWgcLvk VORlwLDxw3JjsIDlz5MwyW tdu1VmzLJmaKOdGS0wXZWm clxwYXIgVVRNQiBMYWJvcm C7y5SdGMRvAEBgIFH9aTsk brs9PVBvcY8mFHQuI9xjcc maOCpaUADcz9WksG4yjCFN cJGrp2VmiQKwpHAPjYNwKQ 0yacBjJXxXJTvJOQP2bzCv MTWwm1BbZOnjQ8caI93eeL vtyJg6oSU3FCE8aJ0mYha+ IFxwYXJccGFyIEFwcHJvcH RkLXDzyXhlorLqW4QtqgDx kJ6kaPEkndXxUC2uRK0xA8 L4sIElJLArkaWgs6utEGuo dmUgYmVlbiByZXZpZXdlZC Ygy6JiTGhfVHK6MWvaqvGw bmNsdWRpbmcgSCZFLCBTcG ZraWIpOPP7MAfvzvOzgiJd AN6wxZ4qtTmrpQ7szLGmuA I8vqutTNKdMRApjNbhFUOp TA5zxXywvT5kCbCtZbApPJ quHN7eFUDhI7ginDLrFONb KCSgQ0qpPhAluS6dsLskIJ xjZjJcZnMyMFxwYXJccGFy XHBsYWluXGYxXGZzMjBcbG FuZzEwMzNcaGljaFxmMVxk FgThKLMoHZjbS8ocZzCkZ6 UjFYZaZlCixKSnV4sgLEce BXU1RQTxDN7bbMYyCP65nM Qas7rdTEhqlFssne9pE33f jJMdOFiojMocXGEva50fh5 LfTFRcbdRmsv8jBOWfnuZ8 uY3tOVLopRhsLQFbxFQrJH Rag4UdLCwhhFBgrpEtZZox MCIuQLThfYUxhrE6wzWyds XbtzQaXIMfeWjvKOZlq2Id CICkORpbd1Iyfy5rfSRpHU YldmTTiBaayLXykL8iU8Hd VVMjUNSbiw0bPSEcpP3fZP kby8GkrdatINCjILWaICRn xzPagg7yZWXqcDRTOM9DUS whgONyz4YceyGcY7cJPVO3 NUQwNjYwMjgxKSBleGNlcH XrYQGyac05GGNznP4azBux WETvmR2fnD8aaHtcyD8oSg FoInMsHTxhTT8jKGZaP7ds nFKoKVCxBGYwC4juBuFpaQ 9jaFxmMVxjZjJcZnMyMFxw YXJ9fQ== Embedded Images (test code = 4329481030) [facility] [id number] 19:23:05 Test Item Value Reference Range Interpretation Comments Case Report (test code Surgical Pathology ? ? = [id number]) ?Case: [id number] ? Authorizing Provider: ?Dominic Keita MD ? ? ?Collected: ? 11/13/2022 0805 ?Ordering Location: ? ? GI Endoscopy OR Department Received: ?11/13/2022 1016 ?Pathologist: ? Billy Diaz MD PhD ?Specimens: ? A) - STOMACH, Gastric polyp x6 r/o adenoma ? B) - DUODENUM, Duodenal Bx, r/o Celiac disease and reasons for anemia ? C) - STOMACH, Gastric Bx r/o HPylori ? Final Diagnosis (test m8tvwCVjXZHqc5doMLMlcN code = [id number]) FuZzEwMzNcZnRuYmpcdWMx VSrboqOnEPkczDrhESA2RR JjKS7ufZxssYk0pLdzTNYc xvK7sXWwCBdch0kxCPX4s2 uedsdiPDHqWEojHm0bdLYu kHpxUnFmINUmVLk6zK90LJ RzpG7giYGnSQs8IGSvmIQh ooCzHaPyKWQovGXlqXE9IO AdEZ8ckdwuMEihPZjjBAKf jvZ4HOObaTEqJ9InZZDtBT 5bktzoWBN2YZfqFTDuVDV4 ZhUcZLQnf3Hjtlm1ZnUnlW FyZFxwbGFpblxmczIwXHBh wvZKMbYURU9SOSIVQXUIE8 fVHLZRFC0JFVYIBgrxzGZp SPQaENVuYHETWG1CGIFyU1 cHOtXzBJ6RNKQgGXXbkDMk RLXsxnUXTkMZFH0SHS6XSB wgQklPUFNZOlxwYXIgICAg RTCiCNoFW1YGQFCzPAFON8 LYAAqBTDciCd6yNEIJJN6H A8nJP0LNALMJZS2TVZkqVY FxWKPwPSAmVP5JFXpcEGYK KZ9NJEBTJSORTEoCVEPAQP FOWGyLIGDWX6OZIJaQKHXo rvrhLNGcBh3oV3YQSEXGLW wgQklPUFNZOlxwYXIgICAg ULOcTLDKG7EBMoONSS3RY7 2LGTVWPOGCCS7LECYLDYtH UM3PCXXKVQZHEPDLC3BboZ FyICAgICAgLSBOTyBFVklE QE8EZCZNDnUPCUjAUVEpAM lTRUFTRVxwYXIgICAgICAt JO9IJYhsDMPLLF4QTXMAKv dBTklTTVMgSURFTlRJRklF FQCHKUYAGZ3BAq9HUBQVGr xwYXJccGFyfXtccnRmMVxz y4FbG1TnRuVvWBzlyxOzYP RcXboxgqzrDCGbPYH9tbKe ELKeUEetVIJkQHusFq3odO ZoiFghVfGhMSRwd2splpXT KAjnNtHqH085IFAwRVuwo9 ddd7PfJOLiwGXwl6Y6SVBF spqrcQc2m4jiWwZeDnY2rK BjUPviF7xlemTexYTkP1Lm nXQllDr8nEflG23gu0D6Qp gmL2qmKPMmUZBrQ1StZU6u CCZxBsp1QOU2XDI1MCLuWS JrH5IvBH0zRRKjpWMpAYy4 r4hpySvaRYFvWEA0h9zoFP optcY3DG2jni3alAn6z4qs czEgRGVmYXVsdCBQYXJhZ3 RlsDunWk1ndFe8wWrhCzxv CNZ0Eqq1SS9hyx77wor0xE meSNAobmskHdP1ETdhYDOo wraaMDk2QUdbLLMwyQA2WD RshTKcJ0WdGEUyOP8bsbh0 QCT8WYzgRXIsRgT9LWBtyC RdRABqpBusLXxfk486FPH9 EgAuXK2qZ7Qqe2D1oV0kbL EpUACueXNtIqJwNIRksa7s oANsEYdwz5MeRZL3upS1cT LvuSKwBNFrRX02Rivqf7Ha QzvsMKK5QJIfauZcr1Nbe6 xqChXygwTcY4ckW6EvBAQc LGSqFNWkXwNcekUwm3Rol8 XocCZzcYe2z5aqLEVbYKTr kOicq9fnDRQ7FRNqM7L0nD Guz6wjFUonJXZruBQ1vdL5 YJEquLNkH2KeqQ7aPSUmHL 0mwqq7b8lkJJT2YIsdYZVw OnC3tcB5BRDkqFWfPCOudB imJWffi708ANP0PdEaUITi n3HgS5KpwSiuO71veCpcP8 9qBJIraQevqZ8uqIpdpY9z ZjBcZnMyNFxxbFxwbGFpbl xmMVxmczIwXGxhbmcxMDMz WTqlF6xxBcSkPHYbfGwiTS tkh0RtQMOfSSXlDrwcacQz XHBhciBJIGhhdmUgcGVyc2 9uYWxseSByZXZpZXdlZCBh bZafu8PcI4ccSN8dQ1WmrK PoynGlabZdPDadELSwa2n3 rPBpoHefy6EziPDrQZ74bb IuNAEiYSA8RWAho7kjPI70 ztjvJsAdnU14znGeyfWfYQ Kmn9oaE3ekeDXpn5Vdy4Fc ayJtAWhnm8YaLS6kjIMdbs obyBT6BZHomWMrccWmzlD4 fNotCVGrvL5miO5bxHpfuW 8aFtLkBsDdYTggPD8mGEFq D1ajtIWlOFMqPAKiG1lkEc FknJ3tiZeaEryigxI2EOGs cn19 Clinical Information Shivani Schuler is a (test code = 47 year old female [id number]) with IDA1. Gastric polyp x 6 r/o adenoma2.Duodenal Bx, r/o Celiac disease 3. Gastric Bx r/o HPylori Gross Description (test i1jotWNrXSFbfUMWKGL3NW code = [id number]) XcGH1kqTkvxIy3rJfiASSs pmV2aOGkQWtoc1reDMH7v8 yoakVBMwopZVWgQB0zXXnf ZLVhCH9rDbGsDTAyVaTpMF BhcGVydzEyMjQwXHBhcGVy vEQ5CEImWW4imghbNBgaRC osXONcejO4OEEjkSKeA1Zh HOHjCZ0cguorXIE5TNLULj qgZp7rjZJzzVkdYjYxAoZu YXJzZXQwXGZuaWwgQXJpYW a1lP3VCtzvKCK2NIAEUasb SnlubLjrq3VnxHAdOQBhVQ xcaWQgNTEwMDAgXFxkYiBP JoXqHcH4Zod4FLM1UvM4IR z0CVMOKFEdExlfDDN2XgG0 BPz3QOWuXK2gVEvotOHrVY wsMdwxYTvyT607DCprEKAl Z0NjI4SdEXwnKkDxEWmeQG WdEXSwTWyfZPOrQ2ALLSGu VTF1TgYwNZRzSMq2LBkjQ9 AOMDAdTOAgBxU1CJVkLyX6 ECp7BDWQMh0jYSybOiRjDM v3VON2WFq7TvRwDTQeAwDx GDCjHPBvEBwduYRlCC6vsQ yhHTKlBW1LNPZfKAkqHHZj HoFnO3CRV4aCPD7dYGnsbK JjaFxmczIyXHBhciANClxw LBInYW2ZEAMjPMeyQPq1ac FmFBAdZnZxFNDrS73mr1KG u9GdPQ8BKXp6ylOydogzeV 3sSMBspgOqNGfOgESmgU7c ghXHASfpDLZzX2OtwyJpTM nvORRpwb5xgAolAPqdDsCf bGVkIHdpdGggdGhlIHBhdG mhytCvA9R1tjQzRT1fUUGV HWJvpK2cMOAkYWFsq6ItdU PnsPplO5YktFCbQxIqz1o9 pPI6YOSlmtTzCUFqbQFuBD Vvvk9iNRadZeVsM8A9ENZj FLElp87zcRU2wuDrYaWpvZ t1xWCxEAS6WW0imJruytRu q1h9mZ1mSVAcu0D7MJSvk6 K1MUUgycMjbUGxzAVlHJDy XK9tpmLoLS26AWXxMVvrLS btMWC3ADE3VCIkkWExq1ta uvdhJe4hKFkbZW8qYDrjGP 55MREsUKpcFJDyP3CaY9J1 EJwcCWRvPDQqjKAasK4ttt EzkgJlnBl5OLGzAXW3dCAf wYxeXCWtWxgbsOE6QEHiIg IzkfDuk1ApfBb1zBKyGHol ZYOkfN6geT5nWORhOFEjob ELBfajCIAdCScvw7DdIWyb cGljWHNhMzAgDQpcZXBpY0 2dh9YRz8Gzc8fezAvrq2Gr gORwNU0ibNTjYD4Dx2gyDW FnaFVlLOG0JQmwy2qyFGkm STF7ZEKwRtWeVSVxGT1TSt OoYTxeAAv5CGblDIc7LFy1 RT7YAqVcAGKdSwp7JwW7Ze MnIYi6HWqlNO6TKPK2JABk NLTcEKuoVLQ5RNLrGTe1MA IgXFxzcyAzIFxcZmwgXFxu G72zyWScNSyqFhAdBEesnU jjFCChJNF3FA9BFNYrTkTj I5PYN2qWBM7sHkxuyrLdNE XydfUKKvaxYYIsCI4TBGRy ROrtJIk5tkXtPOCbNdVkMP SvS87ma8KCp4MhNT0CUZh4 xyIbctirzW8kCYKvsjQct5 IzMFxlcGljWHNiMzAgDQpT zVEdsC1offPGJDvaEVKwP8 WwbtBtXLdaUOQwtd4kcKvr IGxhYmVsbGVkIHdpdGggdG jlPCSpiOnbddVoY7Z6rcUy CH4qWFKTCLXniK5fWQWdWD GdHJMvIMSxrI6oXDL1n3Ir uuVfKIHWEAGgwIleJS08bS BjZWxpYWMgZGlzZWFzZSBh bdVjflBzz26sbeGrj4RyQD 8seLmvAJhFFAqjNxNfED4b XUAwrcRys4NeFM4dCERwbE EyOCAxfrtwqZViFVq9aVHy ZBLoUdPtwUedv2XrMLXpNP vlAG84ypVkQZ6rJTdjGL3z YIavUR4qLIUkWOMlDPTrGv BjaNOdMhHxzVMeTaYzP85l MeXKwIHca5RvN8dyPC9auS XuUbzcqTGyXBIomMcii6Nh xDJnTOHyc4CgiBWzPVqtXR 4vRCX5Hs1gwOOzDNHngjL3 z8QgTVhcROWjTwjcBZHbVK hhs4HoRYJxrNFRx8GwGF4W XHBhciANClxzYTMwXGVwaW CQo1WvTFOGGpcrdHdtMcJl eIDsEfB4RMZqtKYhVSJ4CT 4teEchXPLrCSn4DZgmIGTb Z8GpY2GjYKbuJxNzOJtbYN PkIDXfIZyvCQNcZ8MJAOAb MJX8RvIsHYOfPPb0AQrwR9 AEMGChVLIpHxS6FIN2XdL9 NDh8KLNCRt8fINuwBfDdZL YlGiJ8IWk6PxZaXJRfAbAj VZCxVMCbKPkocQXuLJ9ppV zxJNVpFRMdHSG1ZIRrhOEG q4CoJRTaDPpvHpLaIFMAKN XKXI6QMpFRSVCrJjFmrPQd EP7QIMIzhyGmEMelpDfgqK 0xqPJvB8liBcNqQqgcgAqp TmVzdERvYzEgDQpcbHRycG FyXGxpbjBccmluMFxzYjMw WTBdjHLDj1KjDJMNViRhFG NpbWVuIEMgaXMgcmVjZWl2 HKHfnF1bNo6zzTWacJ2rvN TeJLalDWAfe7g0xAL8wHUj hGX1oFGjsJmgYjRqXG4teZ WyLZMHCX63dDTkywXlXRDs mE0qYHZrCKRyILD6zfobXX WIRQK1tKCrf4I9DUfxQUE1 yB5lgEreErCuR7L7VBZaIZ Ugd66bbHZ4upDpTyAzYXMq yv9hxK1qSBhwhnZgxRxyov Jwr4D4OJRaz2C1DCOawyTx bCQisRYaFUHwAfX3VCHbEs E3LCVmWMFbuRRpRKOzEZ3h VGhlIHNwZWNpbWVuIGlzIG BgjRWbccDgXLNseq63O5pt SWHyoG2si4ukNcDgMNBwEZ LsgMEufHA7BBMdnX9rzL94 kfLqtlRCFS6eiIBlPL8UBS NiMFxlcGljWHNiMCANClxw NBKiRTqer3HaZBlfoBovHE LjZlFuQIiXgNvnVXAHD4yw sNCfNZdrJFLYKLiOF0RIFK 0BDZNhlAAJWAH8NY6zCIlh MWIwL1HsC0JvylG4l9nebG hcv6YnsSGjIC1idROtWH7Z XHBhcmQgDQp9 Disclaimer (test code = y5mehJAaFYVja3foZLQbmX [id number]) FuZzEwMzNcZnRuYmpcdWMx PTnvdhZlBLutl9PcG9UqVe AwMFxhbnNpXGRlZmxhbmcx SQCdOHP5ulMoUWVgGKloBV DfHXidNf4hwJYuxZlgDhWd UGTrq4iabvDILTjeMaWuZ3 62SNQmVDghx4hlm6OdLXKy sMPab9S4FNECmvwbmNq7vH eeF19yu4B5KzumV8xwMHGr QDGtP2QnHC0gZXDhTon3RH K7JQA0MJKgPSQdY2AkDJ8j TRRncYZoUPw8c9aslBhzTN WtDTZ9y6tuYSlwovFoLD4v la5jlDf1e8leptVjQQBuRW VobEMUYAWfM2HoeNnhLr7p mZx4gYnvNkbcQFO3Mdy0KP 7rzh74jxe9kVoeXHAitqyp WbG3DNjrZOUqaayaXOi4HF hdWYPqrTU6NNFxcROdK3Ph DPYnHV0oykq4APK2NExiRB ChHgE4EUOmtYBkJFLddZsf WWnlh024TVQ0DpHoZX0mX9 Vpb3A0hI0brUGcJHBrjTXo GaXpSABxgh4xxCIcULrtw6 SgLJP4znG4sRUuoFMmUCGb KL35Ginuu8BqOzlod4PeM4 8tpVD2LXyas4isHL8yFoU9 gqBtFFtlb4bhyM1gKwX1ZU ctHP1lXJ9zJPFvwQ3wgtkw XHBnYnJkcmhlYWRccGdicm PuAp8itUkvEAD6VFmmC5hd wT4aGjY3QDovJ2hdzI4vPV k6YVgidSJ1MZIbxL0mIP1l gjyli9cfLSgkJDnyVGGtgs Z6qoB9CNUkcBOmM9SboY5o HWPeUS8bqlwwl3xdDJD2OV ehNGDbLBX1OfWwLCJpb8Fv sar4KqZsu4BwpSAcJSjuQ9 1nk717GGLpmgGzG2ufuKGi eikupFRbuczpLJdtqfQ8FX ZanyKpv8RiMSZbYVD2YMex ZPkngIWbGUVsqQvaz8otE9 RscGFyXHBsYWluXGYxXGZz MjBcbGFuZzEwMzNcaGljaF xmRVghLxAdOHTsFTvwD5qi VeAjP2OuIWFjKfSitNQgP2 ggVGhpcyByZXBvcnQgbWF5 KUkfG0a9JOCxlsBwdIq8bj OqFkPoAPZgOJQ1TSfelQMc OGCii7YszqtwsOEqBu5auA UlUAQniV3nGKMbGZPvKPai BW6zgCw6SKVPaWNfhPSlIo OWQLUoAO34jgQaOHIJcdfm s2N1SCsrXJPpb4PprFZbM3 cfe2QrPAZhl74sXZ5xx9S2 w4pkIKT4IB0zx8MhNEEazG GakOKiKHSqm1Wepqguw7Yo RCDhquGeh4SqWJUzlmHiwF TlILMfioDbyv0kcfErZNKt WSAvJ9AkgufujMedtoWcMO Slng8alyZvMUZ8LNKVIEQu CTDwn1QjqB2xsAHNZWF7uV Kdek6jkhPTjCZzSJNfdh52 SGQnZP1sE1utZIErPAIzas CllOUqx5QxCHGmgAY1iVFo QD2QWiTBd00kWQVpTFNOvm FeICXafErryUX5mjC1fV0x IChGREEpLlx+IFRoZSBGRE FnMT5egeUav0FusnImcCry PXQpaIFqj0WgbNChb6MnwC ota2GytABbuPWwYD8hYCEr clxwYXIgVVRNQiBMYWJvcm T9o6SoVWBuWXWkMRU7mMsg btx4WCSzjQ5lZZBuI0ooza zcCXzpSLRku6XxpQ7elZPW eCBwx8XlbPZnnZEToNBnPM 5fywNkNOoCBQnHUJF3fcUb HWKhb2BiRHxrA8wiS70jzM swyPh2bCV6KXE2lA7vAvb+ IFxwYXJccGFyIEFwcHJvcH WjVUCxwLywwcDzH0EaizYl eZ8duFFuoxYmPP4eOT5uO5 W7qPYtDJDstcNpo9huHUmv dmUgYmVlbiByZXZpZXdlZC Ooc8YvDDbgYVC9XNvjvbRi bmNsdWRpbmcgSCZFLCBTcG VhkEPhJKM8PTqjxuKadtIj MU7keQ9pbMvfvE3kePAnjH W5xbamSFGsFTCvpAsmAXCm IC8ywFpqjV8nIlWvHoHwOF oiMM8uSJRbW4jfqDVrKCMj KJVvY3dhOdIriY2fvKsdBY xjZjJcZnMyMFxwYXJccGFy XHBsYWluXGYxXGZzMjBcbG FuZzEwMzNcaGljaFxmMVxk WeAqWNVdMJjwP6ceJrRoP5 WoNZEgAzRvpDHkM3pfXMhn ZMX9KVJfUM5zvILnYT55rG Ymi4raEDdggDgsle2rX49f jZPkNNvxvKqnPTJnj09kd9 LsPNJszxQkdd9dFZZlzwM6 pI7kHHTqaHoaQPSceJHwDQ Ssa6QkMMrvdBAdoyEyHHas NTRqJCIsyCZbcoY1avHlls LffwBvPFGhsUrwFLSzg5Hf PCEtMZndr8Mtpr8aoVWmVY OqssBLpVppuMQwxQ4zR6Zu GNOhSMKmyu1rKHNvhZ0mJY pvz2HtgemfMQHbWPDsELFm dkOmdh9aOGRigWZJPX4IDY pnzTUny0PrpgOrL2xJDUB5 NUQwNjYwMjgxKSBleGNlcH LbQZWhxo51ZGHjlW7gqAjy YBEusT2isC1zpZkpgI0cAo NfVyJoOMkuTO5nCOEnG1rw aAThVBBaJGHjG9mcPvZayH 9jaFxmMVxjZjJcZnMyMFxw YXJ9fQ== Embedded Images (test code = [id number]) [facility] [id number] 19:23:05 Test Item Value Reference Range Interpretation Comments Case Report (test code Surgical Pathology ? ? = [id number]) ?Case: [id number] ? Authorizing Provider: ?Dominic Keita MD ? ? ?Collected: ? 11/13/2022 0805 ?Ordering Location: ? ? GI Endoscopy OR Department Received: ?11/13/2022 1016 ?Pathologist: ? Joe, Suimin, MD PhD ?Specimens: ? A) - STOMACH, Gastric polyp x6 r/o adenoma ? B) - DUODENUM, Duodenal Bx, r/o Celiac disease and reasons for anemia ? C) - STOMACH, Gastric Bx r/o HPylori ? Final Diagnosis (test t6dgvUMrHRJxq6ztRQVwgC code = [id number]) FuZzEwMzNcZnRuYmpcdWMx TJmkfeUaTEanoZvvYVA1ZK TzZT1lyEfxdLh1wUxkJFTg ghU7qQZeWHttv1tpYWA9v6 itosjzDNVrLXmqWc1ccWZz dYboUgOqVFOgZKt0yQ25XO NcjF9xkTPdEMz0VAYejNKa abMsEjNeSOJgrPCiiBB0EB DnET5ajgykTSbtANyzSHIn ndH6LYUawCHfL2GpGMTbKQ 8hqopdYSA6RRwrKLSlCBN6 RnXkDRGap7Cpawj0GiYbhU FyZFxwbGFpblxmczIwXHBh iqGKNgXVPA0XKRVSUQUQJ8 eEFAJWIJ3QUEKPAcliaZBm KPGaTKSsZJCDCB6NXVFhE2 oDHaPrSD3CQQVqQIDkzKXn QBYihjRKSpNOIE8RFJ7MXZ wgQklPUFNZOlxwYXIgICAg NFDlSSsJG1KNHVNvYNVGG9 ZRTIzMLAncGu3lLVSYXK0W B5nKR8NRGSFOGT3QSYmmIW SvMPToBQVxYP0PAZgnMUUS EM6QXFCUHXUWLVlAIPIIQF EKBFyTWFDSH2JCGSqXXLEe iqqsPZPxMh6hD4DFHTSBML wgQklPUFNZOlxwYXIgICAg KDFhMXIQU1OYLiUVMP8HC6 6ZVOMPDRKUMY3DEQJPIZbL HS6ASSLTRUDSVNPLG4UpzS FyICAgICAgLSBOTyBFVklE BT9WAJEGAfYUFAtKCGCvCB lTRUFTRVxwYXIgICAgICAt ZP3RUVmuPFETUG3OMEPUNf dBTklTTVMgSURFTlRJRklF TYMTBKEJMK3ZPo4USWHSLd xwYXJccGFyfXtccnRmMVxz u8KsI5XkWnPdJBtcpbVvGT YmMwsrhkiwYLWpBON6nxPc KUClKCnxYVWlSOlyOi7jsD BdxHndVuOwUQXey4gqxlOT KXjnWaNhZ275FGCgJVdto1 cws7YoKMOadPMtk9Y5TPES jmmonKm6c0vjYuRrVeP1wM TbBZxpF5tdysPceHYvX3Gs sPPgxSk1zUfxN55hl6T5Bo czU9nuYVGtYLDjB4FgZE9h FYDrUtr4JON0QQA8IVWgBV OeH7ZhGY5fODJswCDiMDn8 u2sboRfqCTKkOCZ3a5ltUB nbieR1JQ8juf8qvCc6b3sl czEgRGVmYXVsdCBQYXJhZ3 AtgPimQw9slJw7wPkkRned QRF3Hvi3JU1ywu19mls8aM goDTFdkxscXrA8NQyfMXMb xgerDPs8HUhtPEOtvSR0HH UxpMSwC1SzEVShFZ4nroz3 LBQ0QObmOJFpDpC1GSKpbJ WjCQKqhUokUKcdu487LXJ1 NtYjUT0hN6Njh9W2vQ9tyJ SwCBOoqRZyOlRaOBUygw7n lOShVUyaa5FpQOB0igR5jU NvzKIuGLLoLF33Ldtxt8Kr QzhbJZD5ZURnftPvx5Ubx2 alBoSaeiHgY2hiS5JlOTEb IOVeFZAxMeNgvpJty3Iwd4 ClbUMzsGf9s5kiCFWgXZWm sLmij9ioYBH5BIBwK6L3mM Hri4kpBRnoRNIhgBY4blS6 YAKnjXYdY3JrgJ1vLOFiKY 1gmod4p4amDAJ6CWujNOAj WkR0jhC7XMCkvLJaVNIuhD wyWLwaa985QJK7TqStGKWf t8YwJ7MupNdmH22roFjsW0 2oECQvxJpbmS1etUvnhY3y ZjBcZnMyNFxxbFxwbGFpbl xmMVxmczIwXGxhbmcxMDMz IImrU1ncDqEnYDJhlMxaGE tla7EcTETjNFNrXszddsNg XHBhciBJIGhhdmUgcGVyc2 9uYWxseSByZXZpZXdlZCBh qTahb9UdL6roXC7xV6YbzZ GdxdKtivJgSVlgTUBcr0f4 vRJiySdmm2LyzUGgER62jd LwXGQrTAS3BSIvn2uvUF98 xvuoOaNopP57ttFnjfVfQP Jai2waR0hvqFLju3Wgr7Av ngHiJHbup8IpHP5myQBfow sirCJ6FQMmlSBmgvBhgrX6 cRvaTMPhkD1arO8wyPzmaU 6wPgWnXyXtCJxbJQ6eHHVp R2ubnHBrHOBmIQUtV4eiIt XehN5kfZhwTazazwB5MACc cn19 Clinical Information Shivani Schuler is a (test code = 47 year old female [id number]) with IDA1. Gastric polyp x 6 r/o adenoma2.Duodenal Bx, r/o Celiac disease 3. Gastric Bx r/o HPylori Gross Description (test n7jjvCIoHRVcnPEYZWK2YA code = [id number]) CrRG7gdEqcyZe7kWsrSAKg plB3cBKwDLbuc4unBJT9l8 uepbXDZiviVNDkKW4bDZqi KBSlHB9qGfHnMYJcDwXzHM BhcGVydzEyMjQwXHBhcGVy tVJ3LAMoBF8gholvYDxmQN wrRIXdbmM1HMHtbGXyK8Wh HMLiLX3qyovlLGJ0ASLURj jrPw2iyRBzzBmvViEcEqKk YXJzZXQwXGZuaWwgQXJpYW a6sF3HPfxfAHL3RETYRfnr FanrrBgxl4GbeQIaQKRyRP xcaWQgNTEwMDAgXFxkYiBP XiYfUkN6Csr6EXZ2QyU9VD g1KEJHTKByPllmNZG3TxH8 TUn1WSOwQK8pPGbkkJJcWF viOgkvILerT289UXthDPHx I5TeV7YcDOqbUaNgPHxjOB SySUJhSYflWSHmG2OSMJOr MHI4IyBvBXWtQYi1BFvoG2 BGFRLoFEUqRlT7TIXoAlS7 TQr5XYJSTl3lGIvsMsYtBH g8VGV2XFq7IqYdKYOxKiSs JNZuEDXuFAsdbRIyTB0adZ dhCTVaAT3NRXWwXUwkSPYe PrGzY4DON0oMCZ9oUVmljB JjaFxmczIyXHBhciANClxw LZPcZZ1PIXUiTDvoWJm5lo UcNHVaGsGsRSJsU12by0FX x1RiST3DCSb8uuRqrzbqxB 8jZYPjlgZqGDoGlHEesY5r ndKADTmxYCLbM2GpxmDhJP anERAblc8atWzeNEwrRpZe bGVkIHdpdGggdGhlIHBhdG gqlwFdS7K6ycEaGS6lKIVE PZWgnX0eUFCdCYMhd1DnlP WuyZibN7FlyZVmMqKta2s2 oOJ3GZYdjiUpXLGssETnRW Pbxd1vTPqbMwXaT1S3RLYk SPNvq67euNT5dfUtWxAfdW m3qCJuDGF9LQ4rdTcdneAq u3c3dP4vBSBej8U4XCOud7 U5IXCrtwTeoCAfxGKuYEIg OV4muqTgKK63XCHjTRrwPC ddNHE6JFV3TVMekQUuv0el jvnoDr2nKYrbKG1mOSfwJY 37TJZfRQkmVIXcD9VfH5U6 JXzzPAUmHKGqrPVzyP6iau WjdfIbcGc4CMDhVHH8hEBo bBnnPJDmBgtlqDE7TDUtRs LnhyKyg7PcjYv3rYDuCPrw VPKvxQ1bdL7sVQYyNERigi DTHotzREJhORyjb1VaMDew cGljWHNhMzAgDQpcZXBpY0 0ap5GPk6Ghe2yeoSejm1Fe uSUdGW8scKOcJM4Gq4woEP QiuYKlGKZ2XInmv4bnEJhe NDS5OWUdVhFrXWVsZT9OJp EyLVusGUj5OKhdQVk6BCd8 YC7ZYgXuLTMcMsf2HqB6Fd LyZWl1RMrfIN2DLCA3GOGg IGRkZSfbBFC1DZCsAYx7LY IgXFxzcyAzIFxcZmwgXFxu Z51cfQUeIBytYjUdJHoarK myPLCtPLR9JF6BKNPjYxLk P9KNL5kTMG5qPslfqlMfWQ EelvBSHtjgMBMrUB6KSOOo MCguETy8wrYvRMZuJaMtDX YrP69ie0KOh7YaPQ5NHZf1 ijDvkhnbtC9wVHPkndIbl0 IzMFxlcGljWHNiMzAgDQpT oDPrfL7xhaEHZIroVCAgF2 PdzuEfPWhnWISean1saSor IGxhYmVsbGVkIHdpdGggdG cbCNOozCyuruEoI5E2igYj DT0xIUJKGQAuiJ4mTTDyLY XeEWSiCINxzO0cLCC6s3Ve ydFnBLYEOMOgzNmaPQ32pU BjZWxpYWMgZGlzZWFzZSBh ypDhkxBmt95ojaQsu2ZzYS 7xuXjzOUvXQNdoRkPbGC1r XSNpzsQyk4XmBA3rTTJoiN YvXRBoguxqkREyHYk8gQCx TELbHyQroKgiu2TnRDKeLB ykBB36wsDtQF2mVZgdDT7u FEsjZS7gTYSlOVEyADNaQu UgpNKsPzGrgMLcGrQhV76c MuOThDYkj2ReO9qsIB8rkL GjKqnohHLaJYUhkMoqy7Dd fXBdNPNbo1UqiTEkUGzpBJ 8yLLT2Zx8hgAVwBKJxlnG6 c4CgIXdoRJRgGegzDGUdZU eew0NpNRJueSOAq9ZsUZ1O XHBhciANClxzYTMwXGVwaW RDz4EjJLPBQgrazFkhKbMr dCWqOvV7GDLmwDGgPCV1NE 4uyLzyIZPkCXc7XAdkUZCx N6XxL8BcQZfbCyAyENrdEM YhAXPjUWmqZGRvE1RFPMAk XKH3XtEyJLPdXEu5HHkiC7 WLZABmHWFuGtI3KEI1GbP4 JGs2NGCIUk9bRLnjSqAwJI DqSzV0TFo1MuXbGZAzSaQk KCDkYNRvRJgdyTQlWP9tcY wlIMVhUNKwIJS0DPIlrNYZ j4GfFYAjXFtcZiJlVFOOFD QIYZ6NReHDLXBaHfBrzMYf EZ1HQNAiquVsDDtjvAxhxS 4jtIVaH5bxMyMwWmxhmIwr TmVzdERvYzEgDQpcbHRycG FyXGxpbjBccmluMFxzYjMw BDJrpXAYv9NmOAJQJjTyHR NpbWVuIEMgaXMgcmVjZWl2 BPVojG4fGf3peBUaoC2ntH MiYSneADLdf7t1uDM9tTUv wSY8rBByrPlfFiOcMX3rbI WbTQGLXK08jBUmptFeKECj gG3iIDRcRSFfHEY8lbvhSU MRCNE9aDWvw0X8WGquTRM0 qU5vyHjfAxFfR5M6VIKxKW Mym57uaOL2llQkIxRmWCVh aj6jfK2sNWbyssFrmKouby Bnr3E2TXSpf9I8SGMarjCk qBJjtFVmKRAzVlL4WLHyPf D2LHFpAEBvyJEnIHZtVZ1x VGhlIHNwZWNpbWVuIGlzIG LypJArufXrTHJwyp33T8ao WXKgiX8vv7veVzShUTKmXI CdxGSnlWW2KETimX1xbI05 teWadaPFMR4ccKGkYI7DFV NiMFxlcGljWHNiMCANClxw EAPiVOsip9PnHNvebZzcMP YoHmXxCIyRnVidJIAYA1nj uELjCNxaAYIVWMtPQ1ZLDC 2MMUOxzFZXTCL1RL6bKXdz PDXcH3RqC5AwdjW8e1pboJ wkt7JtpNJdAZ6kvUGoMV8P XHBhcmQgDQp9 Disclaimer (test code = s2tkkBOpSVWwh1dtJQYolU [id number]) FuZzEwMzNcZnRuYmpcdWMx OUayghNtTIgrm6FoD6HnKe AwMFxhbnNpXGRlZmxhbmcx UFApHWB9fnEnAJPtVPqeBX EnPOigZq1qiXGhxEveKaYj UVOpv6utrbAQKTqpUyPuZ1 71KMVwIQecw9pjp2IfYURd fFIgo6T3JNTTdmrwbDo6yM njC00xd4Q4QaxqL1knINOw KZJuI4TeBP6aFGBbMuh8QI K0YNP4BTZbHJHvZ7ZdMJ8r OGQsaLBjPXe7j7upkZpiEU XfWDC4s7xaALhonbDjMN1a da4ffRl8h8tfuiRuBQSdWN OzmLDCGQSdQ5LkdUitEv9o lKm6pKbyMfbvCQF8Lbe3SP 3oin26hsb0mGztJUThaoxa PcG3LIllKHMaptiuFSn1XT orPSRdaQL8XMDpdURoP2Qz HQOuTK3gvaw5CCG4NRijUK CpRgP3RJHbgXEnZEFlnQuu WCvbf875DVU5CmVjDN1pP5 Mgl2V5nH5laXOnZEQyyRVi VkHpBQOgjc1txSLzZBvoo1 FeYON5zxD1gNGkaUObDHRk JW95Scdnt2LaUsgch7VpD2 4xoKL8PHgjt5xrMK1vYjT1 ljYaNIixn3xhiA1jUlH3XX etSD7iHT1qTFFaiO7xgvec XHBnYnJkcmhlYWRccGdicm ZjSv2ayXsbBDX5UBtpY9qe gI1sGkV6XKxoK4ytaJ0eZZ w0FWwqkIT2ULIveK2yVJ3n qetgq8nfIWfsBNtwRWTwnj W5zcX7FAMwvBGvJ5PwjZ0g ZOXrJL5gcsrez6kvZVH7KG npPMXsAGH2NlXsUABjs6Zp mly8RzTba3AenDYnCJvvT3 2do690VZBcmzDiA8fmgNYm htatbPEgehwdPGzazzC2BV MbenAel3HvYVEuLNC6ZYtt FJenfPEcGCSmxUbbp0rvL7 RscGFyXHBsYWluXGYxXGZz MjBcbGFuZzEwMzNcaGljaF xeXZxzJiKuANYuJXhtZ1sg VzTpZ7OoYLNkEjXbbGEeX5 ggVGhpcyByZXBvcnQgbWF5 UXbsD5g1TNJhxxCvmFj3el NlOuQuPYIrFNR4CXxqsMBj FBCtq4CbzmedzBVkMj0vlG RiRTXcqB6dJLInOSIrRKjm UJ9yxNp2JCJNyNQvdBHxQi ARDKWiGS62itWdFUXGacnm t4T1NMbzQQCju8GbhNQiF9 tpp3JyPDGid79gBE2xp7J7 d7mgMUB3XU3dh3PeFDSofB UezUPpSOXwk9Oqrumkp0Wk UKZcpqBsf6QhLVMdwrSypP AwTAXepcDezm6gijQgCSJo ETBgQ5UiuycpcVqhaxDlNP Tjbi4lxdSjVZC0TNQXAMKd DZPhm6UhrW8jqOTVCRS9xW Mfpg8nprYTzOQqEAZopd77 LTLpTY2xY9anQBEdADDfdm XwrNPmy4MkNEOpyDB7zQUh HB7WAoAZy77mRNOlFSPInu OnBHAerStzgQH0liF6cJ5j IChGREEpLlx+IFRoZSBGRE SgOJ4zeyQsz7EqkiYsqYfg XXXvlIUey7SqpZVea1XpaS veq6JezMUpzBNnYD7tDBDb clxwYXIgVVRNQiBMYWJvcm I7p8SqLYViMXPgOGN7aVak dsm3OERwjL2kTWXzH6uvwl hhOSooXDOzz9VldC6boKLC yTRoa3HeiOKjsEIFyKOmHA 0dzqNuEWoOBBxTYPE3bbPs AIXos7NxKNkhL6gmV20qeQ nmaWe7eTD4SJA6eB2lGpg+ IFxwYXJccGFyIEFwcHJvcH QrDMTacAiqwiHzM0VbjyUi wJ7ivBHetmUeKG4hYZ5bR9 Y2mKYoWANowlEeq3sxYZtf dmUgYmVlbiByZXZpZXdlZC Cei4FzRAfrXGC4TAvijaTs bmNsdWRpbmcgSCZFLCBTcG XblZZpYVM1XKvlekEjghXs OU2tdN6dcHjmiG0evFTlrQ K3busuWQFbSNAqcHcrGYBx AQ3tsCgdyL6uZjEeGfYtES hrZA2cVKImQ9mxiPNjKKTz EKDsE2zcIyOwcR2obHycZX xjZjJcZnMyMFxwYXJccGFy XHBsYWluXGYxXGZzMjBcbG FuZzEwMzNcaGljaFxmMVxk RiUnSMNmEQmqZ1wfZnZtA6 YpYBTrWkHlrAMeZ7ltKCqn XXS7NVNiPW3coJQsRN08eR Hpm3ytOZmpoLddop1cF36z yIJuUKwiiMegOATqc11ci5 OkHZWmrfQdhp1fZDZhqhI8 nJ7eKXZgcHqmOKApdYMsGV Pej0TjAIswrFNwyoLzNWtx JDTlSEZepIFyhtQ2jgAxqc EwtuWaDQYsuTmrZVFzq2Mh WTSkUUejy3Zqtk8wzHMdPP GlbqKZnQffbVAzkE7rV6Dd SXGrMWUytm4qEZKesS7vFO gyy8CdwpbaHJMbGLEzUFGb bcNsbw8vLYCoyZVRNT4DXN nigHBpp6NsrcJiD0dXKKV7 NUQwNjYwMjgxKSBleGNlcH DaDDLets66IREdeL2boJyh MGOuwB6goF8yzBnzkP3dFc KsOpYmGGiuAP7zEBBfM6gg aQReAIJgKQMqO3zkZeMyaI 9jaFxmMVxjZjJcZnMyMFxw YXJ9fQ== Embedded Images (test code = [id number]) [facility] [id number] 19:23:05 Test Item Value Reference Range Interpretation Comments Case Report (test code Surgical Pathology ? ? = [id number]) ?Case: [id number] ? Authorizing Provider: ?Dominic Keita MD ? ? ?Collected: ? 11/13/2022 0805 ?Ordering Location: ? ? GI Endoscopy OR Department Received: ?11/13/2022 1016 ?Pathologist: ? Billy Diaz MD PhD ?Specimens: ? A) - STOMACH, Gastric polyp x6 r/o adenoma ? B) - DUODENUM, Duodenal Bx, r/o Celiac disease and reasons for anemia ? C) - STOMACH, Gastric Bx r/o HPylori ? Final Diagnosis (test s0auvAQmJBLon0cuXNXgoP code = [id number]) FuZzEwMzNcZnRuYmpcdWMx AGnmluHfMUfuxRukXXV5RT AiDO4kpRsftCl3rGmlFFPc zaW7mGXxWFcwt9hrWDJ7t0 bdeilwQOPmMFgzVr1yqYRk fFdsEoBmRUHjUDc0xH97SU EtiJ3yrLLfOBr9LCDoaKOx ocRcQkVfGQWcmVHfvHX3GA FqYL0chetkBPsqMUaeKPLw srE6GQDwrCVfD7WnZNWrQS 1ipifxFCS8SHfrZKGvFYG8 JvYxZYUsi0Qwyba3DkLifE FyZFxwbGFpblxmczIwXHBh mkOGVcMOPA7UJLGMCFZLR3 yVZBECMX1ZTZXPWvnqeALm IQZuVIMwPQGMNX3MCMXyK7 oZNhEjDR1PDAErPNFlgDBx OXOcrwDVVhMTGL1FFE7ECY wgQklPUFNZOlxwYXIgICAg EPKwJGyDZ7NSGLKgBLYGM8 HXYUiEWLwpSy1cGWEQIE9N P8wRV6JFXATOIC7QZIbkLW NlMFClUHTfJP1QZFknTHBO SD9GDVSROEKYGFqAQKNWTR PYEAjDOAUEG0SHBQeUSVHw lpbnMEPjJu4oV5ADCSNDCO wgQklPUFNZOlxwYXIgICAg XBLjFGOMV7SYIsYCCV5QZ8 4KMSGFSPKGUM9EZZAUTAvR DG6NQGKYBIZTWDJMV9PvsB FyICAgICAgLSBOTyBFVklE BD3SLPOBXkKMNSvIZXQpPW lTRUFTRVxwYXIgICAgICAt UU4MFZihNUTCVT9MQWGQDt dBTklTTVMgSURFTlRJRklF XCGWKPVQPG8IGy4VLBHSVz xwYXJccGFyfXtccnRmMVxz b9YwY0FdNuAsGVvasdFrEE FdVzhqiplcKKNeNJO5cjGd DWRjVHkmGTGiMKcfMs7zuG CcaRchFbGsWKFyv6qzolZD BUdeKwAoH139UFBdBAjhq2 kid3WpJBAslDAqh6W1YZXZ qyfttAx7m7sxLlZlHmP3rW XsQXnyD1gzgoRxaDZqW8Qn rFYbeHj6mGqqP03rm9Y1Xd hyI9etXCLmIJFgS1ZjIH6m WWVoUib5SEE4KXO4EKNgLD HbO5FgNJ6lQAErdGGcFNq1 v7gotXuxCWMfQAF7a9xtZI qfadQ0TX9ksc8ilUc9a3ta czEgRGVmYXVsdCBQYXJhZ3 PcyFycNw9esCg6aYkxFnza XUX5Khq6WR5iww99ejc9aW yrFNSvffzhHbF1ZFioVBQt gcvzWYq0LUdbRKLhqCF8HK TksOPkA0BdSCGhVD6cgez7 KIK9HDckTIAaEnN8CTDrlF QtLWDlhTynULzop445JYB3 YtWnXE7qD3Drv4Q7aC8htQ DxUWGofTPqCeFdPQYxzv1b xHFaJCwyr5XlVMA9rpV0hW RdwZBpKCGzUH87Rbygk5Go TvaqYDE0LUXdzdUdr8Fau8 aoOvWchrDgP0rhB6EsDQVp YAPqWFOoWrKsaoQim8Jwx4 AhtRRozQg3v5ecYPKlKTUu xSqnl6dtYLW5QKLyK1F9rA Cvq2ymRMidFTHqaRQ8tsW1 RWAuiXVbO8MwyB3eDVChNT 5eqgy8n9wmLET7NJkdIMKb RyF8jbK0ORNxqPGcRKOjfK yrXEoup952TMH0JmNhCKGf b4UeB2DpwEblD29cqPzxH0 6kVBEcxEarxZ8xuOicbR1s ZjBcZnMyNFxxbFxwbGFpbl xmMVxmczIwXGxhbmcxMDMz JQijW7fvBkLrKDYseHmcUI khn6RyKXOvYHUkWntwgmTv XHBhciBJIGhhdmUgcGVyc2 9uYWxseSByZXZpZXdlZCBh uYbix1YaZ1ulPY9yX1AeiE FtwbGadmFhLQgkNTQpz3w2 tWBfkQiys8UvmFUqLM54eb HjATRsTVX8COEvt6wiZA19 ttkxPoSwcA80ztShqbIjXJ Oxb1djV4hdlKOfu9Mee2Tr noRtEDxei6QgKK0fjPAjqa ynbRN3IQNnqLCzjfTmyvQ0 oHqzPGUgxY1xdH3vdGiqzC 6mFgIqKwEuOBhlMR1fCNHx Y1pbzRNiHCZdKWBfY8faAs HatB0zzNlePeofmvJ4MEBt cn19 Clinical Information Shivani Schuler is a (test code = 47 year old female [id number]) with IDA1. Gastric polyp x 6 r/o adenoma2.Duodenal Bx, r/o Celiac disease 3. Gastric Bx r/o HPylori Gross Description (test h6jvqXBeVSZnvMKXJSK8DF code = [id number]) DuQZ1bpYdfxBa3qZhrRKSy qkI7aJAnYRpkq5usJRN1r7 qodcWGZomiUYVkND7nYRtk DZGcCP9xBkDpWFYbWrLuWL BhcGVydzEyMjQwXHBhcGVy qWZ2ISSgIJ9nociyOHrsUD umUPYbyqO3XQDwnYJnQ2Ej DDRtYE2fdryxARX3LBFAXt dlFd9xpYRbfBqsBnHuSoEt YXJzZXQwXGZuaWwgQXJpYW i8sI2UIrosNBP1DVIUKloo XkiflOpsl1YfaOEdXHSlKI xcaWQgNTEwMDAgXFxkYiBP XsJnFdY6Zjk0UJM4FxA8OS o4KTIKBRDqJpvsUAB9GuZ2 UIh4NJNtED1jNYkeiLMkMS dfJxuuVQtuO241LNwqQTRa O4NiF3ZdWNobXgXePEkmKS YkHFOwYQwiBLQrR2INDWYg AVK6MpSeACUvXSc1CMkaY6 TJRQTeQBGeAqB9WQZwNjT3 CEo8JJZQOa1uAYcvVrZlCI n1QNW7JTr2OtFyXVBoXbTo OYWfPVMbYCelrDUyLC0acW vbLDZdAP6LBKUfXNxiJAMe IlUwB7CFD0tHAB1hKPixkJ JjaFxmczIyXHBhciANClxw TRLbZW3WXXIeGDieHAx2hs CtVKMyAqFdASHdX36aw5UT a6AiBH1XWFw7usTmzbbszG 8tWKZdrdQrXWvSeNMndG8l jfBTLLoaBMUvQ4OkosTdHT nePKFqxz0lwEslBPkfFcPr bGVkIHdpdGggdGhlIHBhdG gqcyDfZ4P0piWjCM5bFFMG YUMkkF6pWMYoHBDnn8ZycF KfdFtwK2LcuHZxXeKht6d2 aAA0PDXaopWyPLMtkBLkAH Agdu5rRMiaDjFgL9R5KMXs CLCdk60qsHS2pjMhKaVtmR j6nMRnAAE7MQ3fiEgdggGs t9u3oL2uKFHhs5O0VYIjq4 C2RFFdvtLapCKayQQxXQYw ZF0hivXjFE51AKImFPvmJM jiHQI3PMK6ZXYyyAFrv6oa wwhlBz7wSLvjNY6aDJtbZD 23EYEyMBieIILiE3LzK3Q5 ZHtaVQAlREDziKJogR1cvt YmteWeqTf8PZNkWTY8pHLh wNgfNRKhFzgroZT2VKBqNu IrltDdt2NujOm7kJKtCAvy JKCanC6vjF1cQZPzZTRjag ZPCeckLKKmTVgsb0MtDRgc cGljWHNhMzAgDQpcZXBpY0 8wa0RSf4Src5kkxDcue5Nu nWOeSA7ucOLdRA8Zm0dgMS EzrJFmMLB8NVyqb8grQRgm UAG0QDSrAiSqJUVkOC9WKw GoRVvjFVf8CDyuCAc2LFg5 IL9HOcUuTFNcRta0KvC2Hj PmKJv5PGgpSK0VRJP3AKSd MAHgSOefHBC7DUCjVGp1ZM IgXFxzcyAzIFxcZmwgXFxu S50ebGGhBToaCwBdYCnvsJ qmLSUuXVX8KB9YTLKoJfBr H7PDT9hIMX7cZsfqbeZzHH RhzmQSKuykKCIdTX6SCRBr IZvwWNf8qrDyWPXrTvUrNT SsQ93ho7XJg7YqQM8XSGc2 fgAfxittmV5eWHOxziRwf5 IzMFxlcGljWHNiMzAgDQpT pCHffX3wrzZLOKfvFTTkK1 EelrOnBIlsOSCady0yvMtd IGxhYmVsbGVkIHdpdGggdG qiIEAldQlnauNqN9S0uvRe VV6lZPDSEVHnxA5fDWYnVG LhUFNlIBFhrG4tOTY4g8Dn fuEpDDUFLWPieZieEF70xU BjZWxpYWMgZGlzZWFzZSBh iwCmpsTil29llmNhr8GhJQ 4uwAfxAWgPXTwbXwOtEX6t JSPpnmTpc8YnCJ1jHZCwhX ItORBqavmewQPyHSd3nHVh YBRtXvNilYteg1CwGARzXQ bfJR05ftCjBG5sKAjdAM9d UHcgKZ5oJRJcPXZtECKyOw SrhLBeUnLfnISdKnNqN35w BmPPhPPxy3ZoK0tzOT4vbP OsBhzabGLxNXDkyAnpq6Ea pIMyMPIjc9EseMXpVBzpKS 0pATJ1Ch5gmVRvGRTtomV2 x8HqHDnqXLWsXkjwVISgHW zqh8ShGGWbhSNKp4FwQB4O XHBhciANClxzYTMwXGVwaW XSp3OfYDKGLuirnTnqRkFc zSOhAjN8FUVgpMYsPYJ9YP 3vgMvkSGOjHEk7FYblOMZw V7MbP1MiEInuKaKuOQvjJS UbDJAkVAlxYCMrX3SCRBLx PFV1AgRtFFWfAZi6WWobU7 ZLMKMqVTAjBdK0WZO0JmP0 XJz1WCJPFu2aGSasYcVvWO ZuEvD0ANz2KiRyLPPgHpWh NAMgABOpOLrefZHxTC0snF ecHSIgOZNzKWV5SDBvzNBE c8UrATGuTRbjFaYlAYNFMZ GNYS8JXlVADHZtSoEeoLPl NF3QDWGizlOhAIogiPxmvU 2ceDWuW4bzCuLvOpujlPrl TmVzdERvYzEgDQpcbHRycG FyXGxpbjBccmluMFxzYjMw MMCzoRCBo8VpWTELRpTaJP NpbWVuIEMgaXMgcmVjZWl2 KZDuuB9jJk7lnBYgrV3zbU OvDUzzFRWts5a5hAH0oTXq vQF0bTDviKrgOgPkMH4zjT HyWEBIDZ63aWJgmdZdLOCc oC8uHIJdJMSmEJX9nafxTA OFGBG7vUBud9J7AFxfAAR7 cK6raSzgRcIcN9N2QPAmCQ Kgj15gzPX0iqAqRwXdSYHg bz0mrG8hUQvbkrWzsWfsyg Bwz6S1MWEgh0W6CFHuyuHu tWYzdHFvYOYqVuU4VNFaXj B2JBRaJKLwtUNjTUVqYO9f VGhlIHNwZWNpbWVuIGlzIG GinDGffvPzLZMxgl13D8ha XPUmhP4vq9zfAwHlBBUiYV HvoJYubIJ2FQUpyD7jvN64 mqYsczYFAU8riTKhCZ7LTZ NiMFxlcGljWHNiMCANClxw ARLhOGnbt9ZhHLxraShcTA KbSuHfBGoRtPvvSKDRR0pu cDEtBApnSRHUUIsRV5IHFK 4QSYMnsDHSUKW9DO2wHCzl AFDxM2XdH8BxscZ5c2zueA uqf2OmhGBeYN3ytPVjLO6E XHBhcmQgDQp9 Disclaimer (test code = u7njpOJcXQGxg4yaCTJgmG [id number]) FuZzEwMzNcZnRuYmpcdWMx ZTpwygFzRFtzh6SyL3TdPw AwMFxhbnNpXGRlZmxhbmcx ITNaRWW5cmMsSZNgYQioDC JlNZbtSm5skFDilBpcJqQm YADkm7btkgFCQCcjNgXtA6 83RQLcWZdfu7hpm6GrMCYo qOHjv1R4EQAUzndxaXv4rQ ilT57mz8X3CimaT4bwJWLw IDMhE5KeTU7vZHGfCdf9NX J2XWY9AFWoBZFvY7WxIB2a VUYyvLAhHAj6o9ppeHplQG OcLTT5f2bnWIgnndXqTE0z zo8cbXt2l7wedqNtJZCfCD QqgFSTEFXpJ8AyaJvcUw3x iOl8yLccMpjfSQC7Aol7RF 3rak40bxa4nNoyYDAmhvhk ImU2PLddWKAadzuoNGe7SR ekBPKohGP7VJWvqEZdK5Gt WPRsDV2mhxu5THM2KTozWA IhYcS9GIGcdCCmRRHevHpd DAnhd919ZXW8SvCuRL2rW0 Alh7Z9uR3pfDTyKDPyfWNm UkDqKPZwlx9jcGGkRPafa7 ZyPRG5gzU5hGOkbRJbXZEf VC54Vbrvs8BaKdpao4WyK1 2tkLZ2ESagb2vgSC7tNqL7 baGtXZmyf3gwsU1nTaB5TL ntQI5fAN6lPXJaeB3nhaxf XHBnYnJkcmhlYWRccGdicm IiQb7xfFjcLJR3FXpxK1gt lI4hWmQ5PNjxW7qwfR5gVO b8YJuohHK1EFHrkS4zDQ3g yghce1ilMPxxSGzvMSLxos N1etM5XEXboIQvB5TzyE6f NFToDK9xuyoru7fzAEQ3EA vfFISaWIP1GoMgXBWhn0Xp epd1LrIuk1GklNGhYGecT6 0ov450FLOmqcAjZ2lhmXMr qixhnMIxmfsaYObfaxF2OS TavyUbn0GbSAXcEON9PCqr OTgaqILzTBJqgDhto2iyK6 RscGFyXHBsYWluXGYxXGZz MjBcbGFuZzEwMzNcaGljaF yvBAkcJlFgSXLzQRohX4ez WxCeP5IqVWBlFrYsuFKzA9 ggVGhpcyByZXBvcnQgbWF5 CXgjT6y4ATSfwiXmiEs6pc HqLnMiLLTuYWM5JWecqNPz IPByi2DysxdrxIPqZf7wdW GvBIJrlB0vHYVaKXBjODwm FH3vsVn7HIQFvWIqxEJvPr JKNJYuBW85fzCxDASFesrx d3C6MXmbPXEja6NitSVnZ8 ort1DtAHLux06uZX8ve5B9 n5vsUIE7QS6ef6YvEXAuoV VkgQWrYNCmv8Pzqseqs4Rq HZRpfjMps2MxKTAunaGfnW YdGCTocgSrxt4mowSqBCEo YJUjH5KkvutlaIzmdgBgPL Ldpj0myzCqWKX1NVRZOMXv ARZiw9KzzZ4vsKOBDUT7iO Gomv5cdmTAnHYlYEAzqs23 CNUoOC6hD3usYYLyNNKeic BwzTZtc6QoPZZbrET7xNJr ZD1MIcDWc37zPWCzRAUAat TxAWMnaYwzyPV3ucC2eH4i IChGREEpLlx+IFRoZSBGRE SfQE5arhYvg5HmzxUkzZuo WDBemGEmu9EpxAGzs6AtdX sum3KpwDEvvUBoCX0mVHKp clxwYXIgVVRNQiBMYWJvcm Z4o8WvPVRtFEGySNP7eYcu wto3WLSscC2qZGFlK7uylc wjTTnuGGTug0TmdL8zvSKF vDUuf8JkpMHvuOOYdMUyMO 1wwgXlVZvQEQcUVDO1qfQa LTDdg8NuFTmaG9gzJ05nnP gbbQk9iXU9ATC5wN7nOtl+ IFxwYXJccGFyIEFwcHJvcH KxWBUkbWwvqbSiS6ZnggOb nM6dxYUlwzOkHA1zLR6xZ3 O8mPLzKYEmybXln0bmXQxq dmUgYmVlbiByZXZpZXdlZC Zia7AlVDzvDKK8NHoibcMm bmNsdWRpbmcgSCZFLCBTcG TavNUoCPX1KXawxtBknaIq NH5zlH8rlWqrsN6ddQShtZ S4heayBZHtILHdwEhqSZDd HO6twNqslA1hRmQkZwXsJB ukZG7cBFHiH0lgtFRfBUIk ZTRzF3vqJiWfrR0aeRpjIF xjZjJcZnMyMFxwYXJccGFy XHBsYWluXGYxXGZzMjBcbG FuZzEwMzNcaGljaFxmMVxk SdOzPBBgDRbgB3dlBfYfQ0 XxRQHzJhXlgGLbL0ciDUfo YFP7ESZaWA2hoGGqPO02xH Ohb5goRDajlDrbap6yL44p kQTfTZwweYrkLLVbt22pg2 WsJFSppsZoax5xUYSqpvA0 vX4vFMZuvCfbKSKsaTBjSZ Pne7RcSMfvjBEpswSeEHfc IOOgZXEyoCIgmnW0baMrmr BbfhVxURTdsDdiQGSep8Ks LAVzCSxxd1Wtxg6znEXaZT VudlGBpJyuvBEfxW5wI2Rq BJLdAIQimi4hGEJxoF4rIS zhc0OrajssSFRmVUHuNSSh wiTwzs9rPDWzxHXSRG2TUJ medCNpt4DeyoMhZ1uXMCC3 NUQwNjYwMjgxKSBleGNlcH RfUKWurd87NJFlgI1nuYwg ZCLfcV7zdY1kyMwuwI3iPq LkSgTzMJepCG4lDMEaR8yh iWHiVHEvZFFjU6rhMnExuC 9jaFxmMVxjZjJcZnMyMFxw YXJ9fQ== Embedded Images (test code = [id number]) [facility] [id number] 19:23:05 Test Item Value Reference Range Interpretation Comments Case Report (test code Surgical Pathology ? ? = [id number]) ?Case: [id number] ? Authorizing Provider: ?Dominic Keita MD ? ? ?Collected: ? 11/13/2022 0805 ?Ordering Location: ? ? [facility]oscopy OR Department Received: ?11/13/2022 1016 ?Pathologist: ? Billy Diaz MD PhD ?Specimens: ? A) - STOMACH, Gastric polyp x6 r/o adenoma ? B) - DUODENUM, Duodenal Bx, r/o Celiac disease and reasons for anemia ? C) - STOMACH, Gastric Bx r/o HPylori ? Final Diagnosis (test e4cshAOvUALoi7zoFCGszO code = [id number]) FuZzEwMzNcZnRuYmpcdWMx YMurbqIaNSsukAqrTLN7SO KgQM2moXbgqLp4xYmhLNYy ibN1sUPfSTesl2dmXVG6n4 bxdsjwJKFaZCplCj3iiPVj lZuxIiLaZSQuTVs9nM98BU DxdL3zgMOnIBt2IJWplIYl goLuTwLhEHPupNSysYJ5VE RwSW0mnpshVFjuGResDQWp njP5EWTinUEoE3PdAGVyTJ 4bmpufYHW8GYucDMDeVRY3 PmQpWDEqy3Drwst5KiYypM FyZFxwbGFpblxmczIwXHBh crLXYhWKBN5GSPQPTHHNZ1 oDMRUOZL4NIACVThzxuDDn LFOpWPCiHOSCWQ3UZWWjN4 lCPmTqWX6WIGEjBEEfbIUw TEWtfcNXJmDFWS0FVW9OIB wgQklPUFNZOlxwYXIgICAg OFFbZPsTA1SOTQXdZQXNX2 QBPUxXZIseNg1vXGLTXL6X A1qIJ0KQJZMEXZ3VFHdbLQ TxARObFKJaFD2KEPowJGVX MV3FCHYSDIUMBHaITBVRTH TLSDqOBOECD9HVXPiOJHOi hfwkKUGrJv8tT0HADEHCYH wgQklPUFNZOlxwYXIgICAg NQJaSIADZ2QJDfGBQY7PH6 5IVCGHFNKREN4MTLUUIRmT MF0CYVEJIEWDXSYDE1SmqH FyICAgICAgLSBOTyBFVklE WM7LHNTVImBZFPeIJLLeVU lTRUFTRVxwYXIgICAgICAt RF7ALIzqBHVNKP6DJJOWWk dBTklTTVMgSURFTlRJRklF UNFONPIILI9QWp7PPRDTWn xwYXJccGFyfXtccnRmMVxz m8UiX5LqFpTdWNerdhZxTG QiPprhvumzUYAuIVU9saGj AJZjWDboYBWgUAeuLs0thO IisEstClFbTAEit7wxdaNQ DZyeHqLoR443GATxGRzcr5 pwi7OwRIKbsHIro8H0AVXC lfxhnJt9z3erUhJzXrJ4eM DcWNemT0kimmYvyAJtL5Rd kZNwiWz5iGcsT10pe0V2Hy ssG8ksWBHbQXOaY6WlFJ1l QMZpPid4BDP8AAS4GHXbQE AbZ8BiEX4hOWFrdNBqFPn9 a8ahrPjiGXVfYIC7r5euFN wbqgB3JK8mnv7lsFq2d4yh czEgRGVmYXVsdCBQYXJhZ3 GjlQdkUn4hrXk1yBwwAwvk FHT5Nkb7JU7jvm28tva6dZ kkBXRsdnnbTuN0MXqyTQQf tdacKSs5ZLujMJJmvFP8AM KhxVVcE1RsJDEzEV0ztwh4 ROY5DThuTMFyOeZ0FZPvyH AnKTPxcRewPXogj833HCG3 NvUcCC0pC0Ijo0E9eV6ngV SfZPVtdACgEaNsDRHhsx9m xKHhAQhwf0YgBGA8pyQ2vL TqgGPsRGJnDU96Rwzyp0Sm LvxcPTJ3GZFzpxBvm7Gbo3 wcRpAiyhCuA6pnE4FiVYSc WTPnOPZsLrCwcfXez7Cfy7 YwpIZlgBm9d7zlJQUuUGRd oGlyj2neRPE3JCDnA9H4cE Wxw9pcMMkoVRJtjDY2fnU6 AFAghAXdV0PkaY0xBWQaKM 4lubh4f4hpNRT6NRiaCHHc AdE1vmO5UMUbyOTdMIAkzK xfOIxuw304OMD2VyJzBCIy v7IcL2AbxXhcG99ujEixU8 6mUVSddMpaeH2ufBlmmN8y ZjBcZnMyNFxxbFxwbGFpbl xmMVxmczIwXGxhbmcxMDMz JQsxC2zkWcMzFZDwyXapML ycp1NkERNkPQNtGkntbbEl XHBhciBJIGhhdmUgcGVyc2 9uYWxseSByZXZpZXdlZCBh pRvsz4LwJ7aeWP3aZ5OqcI OgdeXbapJvBMfdKHWpf0t2 dKAxaAyqd9EleERnWH81ox EqYVUfUQS4JVSnf1hnHW17 iiqgOfGloN49lqIplaZlOY Mqv2eiR8blxMTtz1Qij2It hnXzIWqtq5HeOX6tgCGioe egoYH0FHNdzTXlkuFfgpF8 oYpgUAOjvP6rcL9shZlyoO 6cRmOlKtXdJHgeFL2mAIXd R9jgxUCjQJNcXKAwN8hcFo DowL1vqDdbYjjbtxV3OQKm cn19 Clinical Information Shivani Schuler is a (test code = 47 year old female [id number]) with IDA1. Gastric polyp x 6 r/o adenoma2.Duodenal Bx, r/o Celiac disease 3. Gastric Bx r/o HPylori Gross Description (test o1yyhQGeYQKzsRXQSHB5TQ code = [id number]) KsGR3hqUkzlSk6lSzlVUYd syB0jGWoNWxtz3dcZDT5i5 tiskZJGylvVGTkJK7wGWmp TTRsPV0wVaFpBUEwUaCpLW BhcGVydzEyMjQwXHBhcGVy oXA3HLLpJW9dedrdAEcjLK tiENTbfnB2QAKwtZDnN2Wf MFJiWW2pjbhpSGH3XRUHTd fhRg9vjABjaJozJjWpXjXo YXJzZXQwXGZuaWwgQXJpYW a9bK2MEckmUZD8HZPCXodk LgpugPohr0DcbNDqTRAvMR xcaWQgNTEwMDAgXFxkYiBP SpIkRyM0Bqs9XKS1ZaZ8EW p1HTSOONIjQadsFKW0DgV0 RVh2AJUhMR9hMTvomZGlWG kuTbrnNNpsQ950LLjwETZh E1TlV0FiXMecRdVcIDbbBA QzRQNrOVdwGVSkS5UAHINs VYR8MnMvIVPyGXd7OHgcJ1 KVCLSiNWNpEcF7BUBbJlL8 UFq4GSSSHo6tJZrhNuVlVX b8FJH0JMm5QpNbWSSzRdSe UYAgOZBwSXpakNWdPC5hzC whJCIsSV3BILYzKQyxJXUh ZuUlI0EPM6nPVM5wDLaatW JjaFxmczIyXHBhciANClxw TKFlQI6DFPWsESwwDLr8jm TyHEFuHsSuCMXpR43ni6KO u7CdQP6KDJq5yfTmdpjlmZ 3dBTRsuaTdBSlFrNNqkJ4y fbRRDDloLQQrA4KjflBcSE yeNIXrjg9tkAeiEAtjRtOx bGVkIHdpdGggdGhlIHBhdG qzyyFsA2D2mcZiFI6yVHXS VNQchK5aPCXbFOXdv6FxeS FxyFzwJ5MycKWvYbXot7z0 vDC2LAKkgqZlPWZaiDUbXT Gzip2oKIidUaVeE8G9QSCp ZCDgl38xaHU7giQzKaLpdR c2kKAbXWL0DV1ncRgammTx p7c3pM6zCUNge5E3ALFuu6 I7VAQasvVaaPMeiHGaFBNh OB8fslOtSL05RKAmBNmkBO inLIR9FUQ7CPJaxCQdi0rj tbixVk9xSVdgPF3cCHekCU 18NWQdKUttVPEsT7QnK1I9 XWteWESiUZVymZWpmH7mgt VbwyXtrNy4ANClASX1xBOs sLrtXDBvEpmfaFW6JLUyQj ReqfXmj1RroEh9qBYnMJvr SDBmyM9abP3yJXClISVprw GHWhebBGMdQIiyx2JiQEpe cGljWHNhMzAgDQpcZXBpY0 1dc7SAj4Bat4knlVirt4Ce wYBgJV0tlOBzJT7Ix6rkGJ LdjEVyEJE4AGdru8qzFQjj MMQ3CVLzLuFvUZTlUB5XCp JnJRlsCTj3HTopEOu7PSl6 QB0OQiAbKYAsKdq0CbT8Ss AuNNf8LBenCD6MNFB9QDTi XQYsFDdeJAI9QNTtZLq9SU IgXFxzcyAzIFxcZmwgXFxu Y65xsEAiCWscZtBmPRlhaO svFCOgIZD0RP3YFINfPcKg R4REE1dDNC8cEgfyhoXyCI HelxJALipoACHeGZ6FPFCe POevEZy5phSlMJLyBaBfPF OuR01zk4GMi3AnQP0JNOr9 hsZmdrlpgZ9yBDOiiiTxd3 IzMFxlcGljWHNiMzAgDQpT vAHeiD7pzmIHHAddDKMyT0 HpqsMnXVbmETRzvz9pdQie IGxhYmVsbGVkIHdpdGggdG myMMQokRqcloCcD5Y8xvPu PM1yHOJOVEAyvN5uBROvZB KfUQVnHISqpN0jPDH7p4Qy tpBzPTQTKUGepNlfLE28vC BjZWxpYWMgZGlzZWFzZSBh meScepUgg93zisFli1OmIM 2rpDxzTCwCLZqzRsKoHI6i PVSzxgRba5PxRO7iTZHanI CjZQHkxvqinLFuKXe7wZOo GGPpRdFxqKlnj5YpTYVcWZ wuYY57nzGqCU0jQKbdYS4k EOuwYF0uOLVpELUjDOTtIi QeqZFdVzMxmXPxWbBhL60r VtZXyTJzb9CsM2ptKZ7flS ZsUvbsfWEvIVKvzXshb5Ce eAXhOGBkf5DncUWdEMkoMS 1mACI6Yf3awOCrHJDigcB5 s5UpKYgkNWAnWspjYXAmSB evf7YnBUQyoXTOs2CtTD9E XHBhciANClxzYTMwXGVwaW ESz1RiGUSNMalojAbbBcSa yLIqHzY3DTZlcIGzQDK8MN 1fqYvjGTXqOQz4IWabLUHm N0XaI8QpODbwZlHxFFkwFV IqITMkQEqxJYLyR0PCSERh YVQ7JqKbTZPrHHu5JMroY5 ZINBSvCRClTnM1DWG0RzW1 BLg3VNWHAe7zRFbjRpSqHV NyMmT1VGo6UpIxFNQoEhUx FZViZWSyFOfeqESkFH3ufA reKTXrLSDnCTI9LXJhaVUH u0VlHPPzUIuvErTnDGVGYQ OUAY0AJcIHYZRvQpRmmCTg DI4LKQFqcpEnFAigzCahtQ 8irOSfC5vnIrTrTcfqwWpw TmVzdERvYzEgDQpcbHRycG FyXGxpbjBccmluMFxzYjMw DMEqiGDDk3XhSZHPEzEcMM NpbWVuIEMgaXMgcmVjZWl2 TFSbzS9cGd8mrMIvoH1lhG QzMHyaLMGkk9h9nYE9fKTd uPZ8qYJpfTbnViQhXZ6mcV LlVRTJRH61qMEnruHtWSBp oH9uZZMkXWQdALT3nwvqTA CLXGR2nDEbc9X7UTadUZF9 qM8icSmjItRbN8C6LHLiVQ Znw24onMA6vrSmPdEoVZPn ks3nzP2bLOakhlMyuMvzbe Ppd8U4LNLqd4K2LKVrnlNj kEPicYNnVQNnDmM8BPToTs X8IMBiLJIcvBGcSEMlHO2q VGhlIHNwZWNpbWVuIGlzIG WckLFktsOjHJIlbx09L7wc QXSpbG5fx0fqNqJnYHWoSH EtsZBmhUV5ALJwuE7juH74 hqEcvbNLMI5kxBQsJQ1MOM NiMFxlcGljWHNiMCANClxw HMTvZMgkt1GnLBbteYjgNK NyMwZcMYzUpZnlLSGRR3lx kHQqFOrwDKPNEItDN4GOYH 9BXKMqxEFMGFG8UJ3gDMzl GUTyM9UeO2RczzI0f8utoQ bdh9HtmXNlWH9bxICvQC7J XHBhcmQgDQp9 Disclaimer (test code = [id number] [id number]) FuZzEwMzNcZnRuYmpcdWMx UKsmbtHtRLwxc7EzW0YcAt AwMFxhbnNpXGRlZmxhbmcx EHYjSOQ3fnAqKQLvNOmwQM QvKDtiHi6tpXJlzRyiEqIr ZIWkg6smmpKQUStfCgXiU7 06JKDqUFbmw1fwc8ZxRGOc vULsf4N2DBDXxvjieZy0cO sgJ88iw9V5VyljP5ypWZVj LVFoY6SvEC4eLSVjKth2XU N1WGV3XIFpGPLqP4FrQM3r KDWvoNKsPWa6d1mzfGfpKK NyOZD8e5dkUAxlrnNjWH0g wn1pvPe3f4xxijCnEZFbPK MgmBBJUNSuT2SdzIpzQn8s uUo4xSjhMguoZKF8Blh2GJ 0vwn85bwt5jDwvGPCknqzb CyY1MTmwOPEyxdelIKk0XB zpSGFwfUT2OSRemBKjU0We TFZfRE8ayez5ZXS7GBbmQP GvIiA5WCMotCVuXNRgxPxz CVtqt890IMF5UaTwCS9lZ5 Sxr5U0hV9nqETySKKjqNPp TkBdJWDizo8hpVYvSUozy5 TqKBK7ivJ7rRYegITnQSZm VS59Ccpak3MkEqrhn9JxD4 3uoGV8BRmdj7gtSA0xSvO1 fpRsVNvbs0nfgB1fKwK1BO hjLD0iMA2jLNQqzZ4iwrag XHBnYnJkcmhlYWRccGdicm VlZp8raKglMWK2YWksD9ys cC3tCaI8FHrmX5pjfH1nAA b0HHlhxKZ3QZSegV3nHJ6g gsrjy3hwKAekWCwzPFPdsw L0nxN2AVWxlPYvF2EmaR8q TXSzMZ1ogdxgp7gsFOX7GP spYTVaUGQ8LjEcNZPuj8Nh cln2ReLyf6PcbJZkMLfzE7 7vc500WNCptuHoO8ivjBLv dklvcPYwrnabGAyytjX6OZ BckiGfw3KgQXFiRUU8GAbi GOugvMZyNQCueZylp5kpC5 RscGFyXHBsYWluXGYxXGZz MjBcbGFuZzEwMzNcaGljaF geKGkgErFoNWSoPHnfE0am FzApE2SsBOFqSmNacZAtD3 ggVGhpcyByZXBvcnQgbWF5 TCycG9m8JJYyfgLtfKs8de TnPhFjPFPfJRO6ROqvkFYx ZZXyg8NrdmqoeMWyZh4rrZ FmEHYveK0oRRWgPUKyDGvv ZJ7jhBx7BHXEpNYjbVBgZo TUMTTdWB77obRrDIZLwfne e1M4FQuhNXJof2GwjQZjY0 zsi8TkCPYqc02kZU8we2H6 c7gkJOB4VH4an0UjGPEvtJ GeyAHkSFXrj5Agancqr1Hw YZOuiaFrh1CtDBNfcfUsvK QxRNIptcRgkl5edcXoCZDq JIWlD3VyhnaobCaeqtVaPM Rosq0hscZoSAU4VDRYTPIk HTYjh9AleC7wgHZPMHC0pL Ybkk4klhGWwKYvTLHige72 PPTpGM4nB3moOMScMMBhfq XcvWDyu9WhUBXojKK6hWDx ZC0KMlUVb95eFREyTOCDcz IjHQByuCtwzMC8htT7dL8k IChGREEpLlx+IFRoZSBGRE MzYO3phrWwn9LilrPimNwb VVHkcDTul8QfaDPyh4PrjQ fzg4TpbACokPDuCA7vMXDn clxwYXIgVVRNQiBMYWJvcm L4b8OxJFTsGDWxIAW1wRbl dvf1BRUkyV9sRLTtT2ulmq cjIBmnCLGnv7OizH4cbROW oDRtp9JozUGwbBVPnPCfDS 4ihxKmTPrPIBvMVRL3uiXj QMOga8PhNHgwU4hyT70dkE jkqTm2wLB3KZV5tI4lUqj+ IFxwYXJccGFyIEFwcHJvcH TnVQRohCajluFmY8NfwsSm uW3sqLUzheXgPX4lGW8bO1 I7rQKsJGXizgFyt4nsESgw dmUgYmVlbiByZXZpZXdlZC Rnn8MxWJhuRYG4VBnulmJe bmNsdWRpbmcgSCZFLCBTcG IdlOXqPJX5JJezvjFfhuXp KX2rkT5dnIkhaG9ywEWmrN Y8vzwxRBWuHOGxtVwmFHJd NL8biJuqvF4aXqAyZmXaZC xlSE0gWTZmY2wtyLTuPJGv JYQeX3efFyPrmV6gqWrsNT xjZjJcZnMyMFxwYXJccGFy XHBsYWluXGYxXGZzMjBcbG FuZzEwMzNcaGljaFxmMVxk UvPiFDMcBXffJ2ngFmLhB5 UjIAAzBhPmrUElA8auIZav IQL2HSVsVQ1joOVrBH29fL Jwr4kzUNappTrrel3uL52o fLVmKRpapEkuZKQvo88ze4 XwYRElddPvdm7jDGCkklO7 vW3hNDOatJlxZWNgtKQlCG Ouw6DzWIsulVYnozZuMZwh RCTvYDVfrGIymcD7baMexw DcgeYpIHEjfDcnMWXwo0Ay DVTvLHzjj0Nyad6jhNBnXW OsfjORmSxsoROkdH9mJ4Se FJYxZJSuve2sSJLfcQ5gBM yav7PkucxtOTAeRVNnMNKp gtYvoo7cUCNsgMBVNN2UPO xwoIScw5FnkrXhC4cHHUO5 NUQwNjYwMjgxKSBleGNlcH EiFBRenl01YBWfgF9qhPwy XVEtqK7xrZ7brIuvbE6cQi YoHeBtSEtuJF8pISJyR2lm zIXuDMXeJVFiY5ehDlSwbR 9jaFxmMVxjZjJcZnMyMFxw YXJ9fQ== Embedded Images (test code = [id number]) [facility]. METABOLIC PANEL ([id number])2022-11-03 17:25:32 Test Item Value Reference Range Interpretation Comments NA (test code = 139 mmol/L 135-145 6926611938) K (test code = 4.2 mmol/L 3.5-5.0 9989652496) CL (test code = 105 mmol/L 98-108 4511363731) CO2 TOTAL (test code 26 mmol/L 23-31 = 4387728388) AGAP (test code = 8 2-16 3915302442) BUN (test code = 9 mg/dL 7-23 1345971810) GLUCOSE (test code = 93 mg/dL 70-110 7475438006) CREATININE (test code 0.60 mg/dL 0.50-1.04 = 5369873742) TOTAL BILI (test code 0.2 mg/dL 0.1-1.1 = 7110791285) CALCIUM (test code = 9.2 mg/dL 8.6-10.6 7184366255) T PROTEIN (test code 7.0 g/dL 6.3-8.2 = 5953264632) ALBUMIN (test code = 4.2 g/dL 3.5-5.0 7647228460) ALK PHOS (test code = 118 U/L 34-122 9198101441) ALTv (test code = 34 U/L 5-35 1742-6) AST(SGOT) (test code 34 U/L 13-40 = 6525884977) eGFR (test code = 108.1 mL/min/1.73m2 8283253457) ZAINAB (test code = ZAINAB) Association of [...] or urine or abnormalities in imaging tests). [facility]. METABOLIC PANEL ([id number])2022-11-03 17:25:32 Test Item Value Reference Range Interpretation Comments NA (test code = 139 mmol/L 135-145 6108969141) K (test code = 4.2 mmol/L 3.5-5.0 2856637534) CL (test code = 105 mmol/L 98-108 8454317666) CO2 TOTAL (test code 26 mmol/L 23-31 = 9632064977) AGAP (test code = 8 2-16 2274885618) BUN (test code = 9 mg/dL 7-23 4705259557) GLUCOSE (test code = 93 mg/dL 70-110 9051752573) CREATININE (test code 0.60 mg/dL 0.50-1.04 = 6557921854) TOTAL BILI (test code 0.2 mg/dL 0.1-1.1 = 4276192997) CALCIUM (test code = 9.2 mg/dL 8.6-10.6 5207290046) T PROTEIN (test code 7.0 g/dL 6.3-8.2 = 8717439788) ALBUMIN (test code = 4.2 g/dL 3.5-5.0 1679033779) ALK PHOS (test code = 118 U/L 34-122 1581012073) ALTv (test code = 34 U/L 5-35 1742-6) AST(SGOT) (test code 34 U/L 13-40 = 0141086829) eGFR (test code = 108.1 mL/min/1.73m2 7834417822) ZAINAB (test code = ZAINAB) Association of [...] or urine or abnormalities in imaging tests). [facility]. METABOLIC PANEL ([id number])2022-11-03 17:25:32 Test Item Value Reference Range Interpretation Comments NA (test code = 139 mmol/L 135-145 4277803252) K (test code = 4.2 mmol/L 3.5-5.0 9799830889) CL (test code = 105 mmol/L 98-108 4054688807) CO2 TOTAL (test code 26 mmol/L 23-31 = 9954564064) AGAP (test code = 8 2-16 8731449712) BUN (test code = 9 mg/dL 7-23 3532434911) GLUCOSE (test code = 93 mg/dL 70-110 1619371243) CREATININE (test code 0.60 mg/dL 0.50-1.04 = 9191963721) TOTAL BILI (test code 0.2 mg/dL 0.1-1.1 = 5706145349) CALCIUM (test code = 9.2 mg/dL 8.6-10.6 5432513822) T PROTEIN (test code 7.0 g/dL 6.3-8.2 = 0831983607) ALBUMIN (test code = 4.2 g/dL 3.5-5.0 5050884800) ALK PHOS (test code = 118 U/L 34-122 4466290857) ALTv (test code = 34 U/L 5-35 2-6) AST(SGOT) (test code 34 U/L 13-40 = 9799281144) eGFR (test code = 108.1 mL/min/1.73m2 0369855807) ZAINAB (test code = ZAINAB) Association of [...] or urine or abnormalities in imaging tests). [facility]. METABOLIC PANEL ([id number])2022-11-03 17:25:32 Test Item Value Reference Range Interpretation Comments NA (test code = 139 mmol/L 135-145 4214225671) K (test code = 4.2 mmol/L 3.5-5.0 2044949284) CL (test code = 105 mmol/L 98-108 6735372104) CO2 TOTAL (test code 26 mmol/L 23-31 = 9053268894) AGAP (test code = 8 2-16 7443877165) BUN (test code = 9 mg/dL 7-23 8305734383) GLUCOSE (test code = 93 mg/dL 70-110 9919043322) CREATININE (test code 0.60 mg/dL 0.50-1.04 = 8667391859) TOTAL BILI (test code 0.2 mg/dL 0.1-1.1 = 4055845420) CALCIUM (test code = 9.2 mg/dL 8.6-10.6 3118638477) T PROTEIN (test code 7.0 g/dL 6.3-8.2 = 0712544035) ALBUMIN (test code = 4.2 g/dL 3.5-5.0 1754642109) ALK PHOS (test code = 118 U/L 34-122 1518982918) ALTv (test code = 34 U/L 5-35 1742-6) AST(SGOT) (test code 34 U/L 13-40 = 5669608502) eGFR (test code = 108.1 mL/min/1.73m2 3687095763) ZAINAB (test code = ZAINAB) Association of [...] or urine or abnormalities in imaging tests). [facility]. METABOLIC PANEL ([id number])2022-11-03 17:25:32 Test Item Value Reference Range Interpretation Comments NA (test code = 139 mmol/L 135-145 2492797683) K (test code = 4.2 mmol/L 3.5-5.0 2097076544) CL (test code = 105 mmol/L 98-108 4936747094) CO2 TOTAL (test code 26 mmol/L 23-31 = 9971137972) AGAP (test code = 8 2-16 4841595913) BUN (test code = 9 mg/dL 7-23 8483096230) GLUCOSE (test code = 93 mg/dL 70-110 4424841066) CREATININE (test code 0.60 mg/dL 0.50-1.04 = 8747495361) TOTAL BILI (test code 0.2 mg/dL 0.1-1.1 = 4425402468) CALCIUM (test code = 9.2 mg/dL 8.6-10.6 3396121741) T PROTEIN (test code 7.0 g/dL 6.3-8.2 = 7817915937) ALBUMIN (test code = 4.2 g/dL 3.5-5.0 9829071698) ALK PHOS (test code = 118 U/L 34-122 6808127571) ALTv (test code = 34 U/L 5-35 1742-6) AST(SGOT) (test code 34 U/L 13-40 = 2315938722) eGFR (test code = 108.1 mL/min/1.73m2 3811393917) ZAINAB (test code = ZAINAB) Association of [...] or urine or abnormalities in imaging tests). [facility]. METABOLIC PANEL ([id number])2022-11-03 17:25:32 Test Item Value Reference Range Interpretation Comments NA (test code = 139 mmol/L 135-145 9120040636) K (test code = 4.2 mmol/L 3.5-5.0 8796391389) CL (test code = 105 mmol/L 98-108 7583482795) CO2 TOTAL (test code 26 mmol/L 23-31 = 2380066090) AGAP (test code = 8 2-16 0829984835) BUN (test code = 9 mg/dL 7-23 3325301186) GLUCOSE (test code = 93 mg/dL 70-110 8651863480) CREATININE (test code 0.60 mg/dL 0.50-1.04 = 6529190771) TOTAL BILI (test code 0.2 mg/dL 0.1-1.1 = 4385684752) CALCIUM (test code = 9.2 mg/dL 8.6-10.6 8575306540) T PROTEIN (test code 7.0 g/dL 6.3-8.2 = 7906938073) ALBUMIN (test code = 4.2 g/dL 3.5-5.0 1032171897) ALK PHOS (test code = 118 U/L 34-122 9738239912) ALTv (test code = 34 U/L 5-35 2-6) AST(SGOT) (test code 34 U/L 13-40 = 2059116249) eGFR (test code = 108.1 mL/min/1.73m2 5466950225) ZAINAB (test code = ZAINAB) Association of [...] or urine or abnormalities in imaging tests). [facility]. METABOLIC PANEL ([id number])2022-11-03 17:25:32 Test Item Value Reference Range Interpretation Comments NA (test code = 139 mmol/L 135-145 5954998089) K (test code = 4.2 mmol/L 3.5-5.0 9788918209) CL (test code = 105 mmol/L 98-108 1668544816) CO2 TOTAL (test code 26 mmol/L 23-31 = 8367368279) AGAP (test code = 8 2-16 0458239061) BUN (test code = 9 mg/dL 7-23 3934433049) GLUCOSE (test code = 93 mg/dL 70-110 1534912031) CREATININE (test code 0.60 mg/dL 0.50-1.04 = 9678395323) TOTAL BILI (test code 0.2 mg/dL 0.1-1.1 = 7372696585) CALCIUM (test code = 9.2 mg/dL 8.6-10.6 3604765262) T PROTEIN (test code 7.0 g/dL 6.3-8.2 = 2528990161) ALBUMIN (test code = 4.2 g/dL 3.5-5.0 6647143106) ALK PHOS (test code = 118 U/L 34-122 3811139671) ALTv (test code = 34 U/L 5-35 1742-6) AST(SGOT) (test code 34 U/L 13-40 = 4562890489) eGFR (test code = 108.1 mL/min/1.73m2 3939580309) ZAINAB (test code = ZAINAB) Association of [...] or urine or abnormalities in imaging tests). [facility]. METABOLIC PANEL ([id number])2022-11-03 17:25:32 Test Item Value Reference Range Interpretation Comments NA (test code = 139 mmol/L 135-145 9653749304) K (test code = 4.2 mmol/L 3.5-5.0 9118004185) CL (test code = 105 mmol/L 98-108 6605533522) CO2 TOTAL (test code 26 mmol/L 23-31 = 7254687011) AGAP (test code = 8 2-16 3067667912) BUN (test code = 9 mg/dL 7-23 3673897192) GLUCOSE (test code = 93 mg/dL 70-110 7962541213) CREATININE (test code 0.60 mg/dL 0.50-1.04 = 1614741654) TOTAL BILI (test code 0.2 mg/dL 0.1-1.1 = 6092112962) CALCIUM (test code = 9.2 mg/dL 8.6-10.6 8099215406) T PROTEIN (test code 7.0 g/dL 6.3-8.2 = 6816960253) ALBUMIN (test code = 4.2 g/dL 3.5-5.0 9985260924) ALK PHOS (test code = 118 U/L 34-122 2381892384) ALTv (test code = 34 U/L 5-35 1742-6) AST(SGOT) (test code 34 U/L 13-40 = 4508123977) eGFR (test code = 108.1 mL/min/1.73m2 8585804624) ZAINAB (test code = ZAINAB) Association of [...] or urine or abnormalities in imaging tests). [facility]. METABOLIC PANEL ([id number])2022-11-03 17:25:32 Test Item Value Reference Range Interpretation Comments NA (test code = 139 mmol/L 135-145 9446407862) K (test code = 4.2 mmol/L 3.5-5.0 7384679217) CL (test code = 105 mmol/L 98-108 5802816911) CO2 TOTAL (test code 26 mmol/L 23-31 = 6717605427) AGAP (test code = 8 2-16 9517636257) BUN (test code = 9 mg/dL 7-23 4340728080) GLUCOSE (test code = 93 mg/dL 70-110 4765046811) CREATININE (test code 0.60 mg/dL 0.50-1.04 = 6012941698) TOTAL BILI (test code 0.2 mg/dL 0.1-1.1 = 5428899230) CALCIUM (test code = 9.2 mg/dL 8.6-10.6 7335485458) T PROTEIN (test code 7.0 g/dL 6.3-8.2 = 3006168590) ALBUMIN (test code = 4.2 g/dL 3.5-5.0 0817263511) ALK PHOS (test code = 118 U/L 34-122 6126689206) ALTv (test code = 34 U/L 5-35 2-6) AST(SGOT) (test code 34 U/L 13-40 = 0886724329) eGFR (test code = 108.1 mL/min/1.73m2 37976-5) ZAINAB (test code = ZAINAB) Association of [...] or urine or abnormalities in imaging tests). [facility]. METABOLIC PANEL ([id number])2022-11-03 17:25:32 Test Item Value Reference Range Interpretation Comments NA (test code = 139 mmol/L 135-145 4457542414) K (test code = 4.2 mmol/L 3.5-5.0 4272519352) CL (test code = 105 mmol/L 98-108 3985206923) CO2 TOTAL (test code 26 mmol/L 23-31 = 0321520660) AGAP (test code = 8 2-16 6689479525) BUN (test code = 9 mg/dL 7-23 5884947153) GLUCOSE (test code = 93 mg/dL 70-110 4583348718) CREATININE (test code 0.60 mg/dL 0.50-1.04 = 3434332644) TOTAL BILI (test code 0.2 mg/dL 0.1-1.1 = 1938223394) CALCIUM (test code = 9.2 mg/dL 8.6-10.6 5538763480) T PROTEIN (test code 7.0 g/dL 6.3-8.2 = 5998546357) ALBUMIN (test code = 4.2 g/dL 3.5-5.0 3539376842) ALK PHOS (test code = 118 U/L 34-122 3347061788) ALTv (test code = 34 U/L 5-35 1742-6) AST(SGOT) (test code 34 U/L 13-40 = 0022315112) eGFR (test code = 108.1 mL/min/1.73m2 79587-5) ZANIAB (test code = ZAINAB) Association of Glomerular [...] or urine or abnormalities in imaging tests). [facility]. METABOLIC PANEL ([id number])2022-11-03 17:25:32 Test Item Value Reference Range Interpretation Comments NA (test code = 139 mmol/L 135-145 7401858845) K (test code = 4.2 mmol/L 3.5-5.0 7179574617) CL (test code = 105 mmol/L 98-108 3215828399) CO2 TOTAL (test code 26 mmol/L 23-31 = 1908204779) AGAP (test code = 8 2-16 6823234427) BUN (test code = 9 mg/dL 7-23 6628875278) GLUCOSE (test code = 93 mg/dL 70-110 6600036600) CREATININE (test code 0.60 mg/dL 0.50-1.04 = 6423195556) TOTAL BILI (test code 0.2 mg/dL 0.1-1.1 = 0249975193) CALCIUM (test code = 9.2 mg/dL 8.6-10.6 9369632404) T PROTEIN (test code 7.0 g/dL 6.3-8.2 = 3508101676) ALBUMIN (test code = 4.2 g/dL 3.5-5.0 8289024374) ALK PHOS (test code = 118 U/L 34-122 0217711332) ALTv (test code = 34 U/L 5-35 1742-6) AST(SGOT) (test code 34 U/L 13-40 = 6446881048) eGFR (test code = 108.1 mL/min/1.73m2 42823-3) ZAINAB (test code = ZAINAB) Association of [...] or urine or abnormalities in imaging tests). [facility]. METABOLIC PANEL ([id number])2022-11-03 17:25:32 Test Item Value Reference Range Interpretation Comments NA (test code = 139 mmol/L 135-145 4479524827) K (test code = 4.2 mmol/L 3.5-5.0 7324764805) CL (test code = 105 mmol/L 98-108 1280790071) CO2 TOTAL (test code 26 mmol/L 23-31 = 5296890959) AGAP (test code = 8 2-16 7923539797) BUN (test code = 9 mg/dL 7-23 2774946763) GLUCOSE (test code = 93 mg/dL 70-110 8686425653) CREATININE (test code 0.60 mg/dL 0.50-1.04 = 5437224800) TOTAL BILI (test code 0.2 mg/dL 0.1-1.1 = 6292827134) CALCIUM (test code = 9.2 mg/dL 8.6-10.6 8491054798) T PROTEIN (test code 7.0 g/dL 6.3-8.2 = 8811998175) ALBUMIN (test code = 4.2 g/dL 3.5-5.0 1045867258) ALK PHOS (test code = 118 U/L 34-122 5105454801) ALTv (test code = 34 U/L 5-35 2-6) AST(SGOT) (test code 34 U/L 13-40 = 5866014268) eGFR (test code = 108.1 mL/min/1.73m2 26158-6) ZAINAB (test code = ZAINAB) Association of [...] or urine or abnormalities in imaging tests). [facility] WITH [id number] 17:18:52 Test Item Value Reference Range Interpretation Comments WBC (test code = 7.41 See_Comment [Automated 6690-2) message] The sy stem which generated this result transmitted reference range : 4.30 - 11.10 10*3/?L. The reference range was not used to interpret this result as normal/abnormal . RBC (test code = 4.20 See_Comment [Automated 789-8) message] The sy stem which generated this result transmitted reference range : 3.93 - 5.25 10*6/?L. The reference range was not used to interpret this result as normal/abnormal . HGB (test code = 9.1 g/dL 11.6-15.0 L 718-7) HCT (test code = 30.2 % 35.7-45.2 L 4544-3) MCV (test code = 71.9 fL 80.6-95.5 L 787-2) MCH (test code = 21.7 pg 25.9-32.8 L 785-6) MCHC (test code = 30.1 g/dL 31.6-35.1 L 786-4) RDW-SD (test code = 46.2 fL 39.0-49.9 49126-0) RDW-CV (test code = 17.9 % 12.0-15.5 H 788-0) PLT (test code = 304 See_Comment [Automated 777-3) message] The sy stem which generated this result transmitted reference range : 166 - 358 10*3/ ?L. The reference r kuldip was not used to interpret this result as normal/abnormal . MPV (test code = 11.0 fL 9.5-12.9 31957-7) NRBC/100 WBC (test 0.0 See_Comment [Automat ed code = 7717289311) message] The system which generated this result transmitted reference range : 0.0 - 10.0 /100 WBCs. The refer ence range was not u sed to interpret th is result as normal/abnormal . NRBC x10^3 (test code See_Comment [Auto mated = 1721169078) message] The s ystem which generated this result transmitted reference range : 10*3/?L. The reference range was not used to interpret this result as normal/abnormal . GRAN MAT (NEUT) % 68.6 % (test code = 770-8) IMM GRAN % (test code 0.70 % = 2743208385) LYMPH % (test code = 19.8 % 736-9) MONO % (test code = 5.3 % 5905-5) EOS % (test code = 5.1 % 713-8) BASO % (test code = 0.5 % 706-2) GRAN MAT x10^3(ANC) 5.08 10*3/uL 1.88-7.09 (test code = 8516286200) IMM GRAN x10^3 (test 0.05 10*3/uL 0.00-0.06 code = 2042776657) LYMPH x10^3 (test code 1.47 10*3/uL 1.32-3.29 = 731-0) MONO x10^3 (test code 0.39 10*3/uL 0.33-0.92 = 742-7) EOS x10^3 (test code = 0.38 10*3/uL 0.03-0.39 711-2) BASO x10^3 (test code 0.04 10*3/uL 0.01-0.07 = 704-7) Lab Interpretation Abnormal (test code = 10772-7) [facility] WITH [id number] 17:18:52 Test Item Value Reference Range Interpretation Comments WBC (test code = 7.41 See_Comment [Automated 5577-2) message] The sy stem which generated this result transmitted reference range : 4.30 - 11.10 10*3/?L. The reference range was not used to interpret this result as normal/abnormal . RBC (test code = 4.20 See_Comment [Automated 757-8) message] The sy stem which generated this result transmitted reference range : 3.93 - 5.25 10*6/?L. The reference range was not used to interpret this result as normal/abnormal . HGB (test code = 9.1 g/dL 11.6-15.0 L 718-7) HCT (test code = 30.2 % 35.7-45.2 L 4544-3) MCV (test code = 71.9 fL 80.6-95.5 L 787-2) MCH (test code = 21.7 pg 25.9-32.8 L 785-6) MCHC (test code = 30.1 g/dL 31.6-35.1 L 786-4) RDW-SD (test code = 46.2 fL 39.0-49.9 69405-8) RDW-CV (test code = 17.9 % 12.0-15.5 H 788-0) PLT (test code = 304 See_Comment [Automated 777-3) message] The sy stem which generated this result transmitted reference range : 166 - 358 10*3/ ?L. The reference r kuldip was not used to interpret this result as normal/abnormal . MPV (test code = 11.0 fL 9.5-12.9 73871-8) NRBC/100 WBC (test 0.0 See_Comment [Automat ed code = 4859941272) message] The system which generated this result transmitted reference range : 0.0 - 10.0 /100 WBCs. The refer ence range was not u sed to interpret th is result as normal/abnormal . NRBC x10^3 (test code See_Comment [Auto mated = 9656639140) message] The s ystem which generated this result transmitted reference range : 10*3/?L. The reference range was not used to interpret this result as normal/abnormal . GRAN MAT (NEUT) % 68.6 % (test code = 770-8) IMM GRAN % (test code 0.70 % = 7689440927) LYMPH % (test code = 19.8 % 736-9) MONO % (test code = 5.3 % 5905-5) EOS % (test code = 5.1 % 713-8) BASO % (test code = 0.5 % 706-2) GRAN MAT x10^3(ANC) 5.08 10*3/uL 1.88-7.09 (test code = 4046528919) IMM GRAN x10^3 (test 0.05 10*3/uL 0.00-0.06 code = 7618080673) LYMPH x10^3 (test code 1.47 10*3/uL 1.32-3.29 = 731-0) MONO x10^3 (test code 0.39 10*3/uL 0.33-0.92 = 742-7) EOS x10^3 (test code = 0.38 10*3/uL 0.03-0.39 711-2) BASO x10^3 (test code 0.04 10*3/uL 0.01-0.07 = 704-7) Lab Interpretation Abnormal (test code = 07941-6) [facility] WITH [id number] 17:18:52 Test Item Value Reference Range Interpretation Comments WBC (test code = 7.41 See_Comment [Automated 6690-2) message] The sy stem which generated this result transmitted reference range : 4.30 - 11.10 10*3/?L. The reference range was not used to interpret this result as normal/abnormal . RBC (test code = 4.20 See_Comment [Automated 009-8) message] The sy stem which generated this result transmitted reference range : 3.93 - 5.25 10*6/?L. The reference range was not used to interpret this result as normal/abnormal . HGB (test code = 9.1 g/dL 11.6-15.0 L 718-7) HCT (test code = 30.2 % 35.7-45.2 L 4544-3) MCV (test code = 71.9 fL 80.6-95.5 L 787-2) MCH (test code = 21.7 pg 25.9-32.8 L 785-6) MCHC (test code = 30.1 g/dL 31.6-35.1 L 786-4) RDW-SD (test code = 46.2 fL 39.0-49.9 28253-2) RDW-CV (test code = 17.9 % 12.0-15.5 H 788-0) PLT (test code = 304 See_Comment [Automated 777-3) message] The sy stem which generated this result transmitted reference range : 166 - 358 10*3/ ?L. The reference r kuldip was not used to interpret this result as normal/abnormal . MPV (test code = 11.0 fL 9.5-12.9 94046-8) NRBC/100 WBC (test 0.0 See_Comment [Automat ed code = 5505551993) message] The system which generated this result transmitted reference range : 0.0 - 10.0 /100 WBCs. The refer ence range was not u sed to interpret th is result as normal/abnormal . NRBC x10^3 (test code See_Comment [Auto mated = 0340039168) message] The s ystem which generated this result transmitted reference range : 10*3/?L. The reference range was not used to interpret this result as normal/abnormal . GRAN MAT (NEUT) % 68.6 % (test code = 770-8) IMM GRAN % (test code 0.70 % = 5011354187) LYMPH % (test code = 19.8 % 736-9) MONO % (test code = 5.3 % 5905-5) EOS % (test code = 5.1 % 713-8) BASO % (test code = 0.5 % 706-2) GRAN MAT x10^3(ANC) 5.08 10*3/uL 1.88-7.09 (test code = 1879076703) IMM GRAN x10^3 (test 0.05 10*3/uL 0.00-0.06 code = 1564751047) LYMPH x10^3 (test code 1.47 10*3/uL 1.32-3.29 = 731-0) MONO x10^3 (test code 0.39 10*3/uL 0.33-0.92 = 742-7) EOS x10^3 (test code = 0.38 10*3/uL 0.03-0.39 711-2) BASO x10^3 (test code 0.04 10*3/uL 0.01-0.07 = 704-7) Lab Interpretation Abnormal (test code = 09492-9) [facility] WITH [id number] 17:18:52 Test Item Value Reference Range Interpretation Comments WBC (test code = 7.41 See_Comment [Automated 6690-2) message] The sy stem which generated this result transmitted reference range : 4.30 - 11.10 10*3/?L. The reference range was not used to interpret this result as normal/abnormal . RBC (test code = 4.20 See_Comment [Automated 789-8) message] The sy stem which generated this result transmitted reference range : 3.93 - 5.25 10*6/?L. The reference range was not used to interpret this result as normal/abnormal . HGB (test code = 9.1 g/dL 11.6-15.0 L 718-7) HCT (test code = 30.2 % 35.7-45.2 L 4544-3) MCV (test code = 71.9 fL 80.6-95.5 L 787-2) MCH (test code = 21.7 pg 25.9-32.8 L 785-6) MCHC (test code = 30.1 g/dL 31.6-35.1 L 786-4) RDW-SD (test code = 46.2 fL 39.0-49.9 87397-2) RDW-CV (test code = 17.9 % 12.0-15.5 H 788-0) PLT (test code = 304 See_Comment [Automated 777-3) message] The sy stem which generated this result transmitted reference range : 166 - 358 10*3/ ?L. The reference r kuldip was not used to interpret this result as normal/abnormal . MPV (test code = 11.0 fL 9.5-12.9 78314-3) NRBC/100 WBC (test 0.0 See_Comment [Automat ed code = 7564119408) message] The system which generated this result transmitted reference range : 0.0 - 10.0 /100 WBCs. The refer ence range was not u sed to interpret th is result as normal/abnormal . NRBC x10^3 (test code See_Comment [Auto mated = 6991873422) message] The s ystem which generated this result transmitted reference range : 10*3/?L. The reference range was not used to interpret this result as normal/abnormal . GRAN MAT (NEUT) % 68.6 % (test code = 770-8) IMM GRAN % (test code 0.70 % = 2590830317) LYMPH % (test code = 19.8 % 736-9) MONO % (test code = 5.3 % 5905-5) EOS % (test code = 5.1 % 713-8) BASO % (test code = 0.5 % 706-2) GRAN MAT x10^3(ANC) 5.08 10*3/uL 1.88-7.09 (test code = 0820145640) IMM GRAN x10^3 (test 0.05 10*3/uL 0.00-0.06 code = 3700316129) LYMPH x10^3 (test code 1.47 10*3/uL 1.32-3.29 = 731-0) MONO x10^3 (test code 0.39 10*3/uL 0.33-0.92 = 742-7) EOS x10^3 (test code = 0.38 10*3/uL 0.03-0.39 711-2) BASO x10^3 (test code 0.04 10*3/uL 0.01-0.07 = 704-7) Lab Interpretation Abnormal (test code = 24111-7) [facility] WITH [id number] 17:18:52 Test Item Value Reference Range Interpretation Comments WBC (test code = 7.41 See_Comment [Automated 5506-2) message] The sy stem which generated this result transmitted reference range : 4.30 - 11.10 10*3/?L. The reference range was not used to interpret this result as normal/abnormal . RBC (test code = 4.20 See_Comment [Automated 509-8) message] The sy stem which generated this result transmitted reference range : 3.93 - 5.25 10*6/?L. The reference range was not used to interpret this result as normal/abnormal . HGB (test code = 9.1 g/dL 11.6-15.0 L 718-7) HCT (test code = 30.2 % 35.7-45.2 L 4544-3) MCV (test code = 71.9 fL 80.6-95.5 L 787-2) MCH (test code = 21.7 pg 25.9-32.8 L 785-6) MCHC (test code = 30.1 g/dL 31.6-35.1 L 786-4) RDW-SD (test code = 46.2 fL 39.0-49.9 62447-5) RDW-CV (test code = 17.9 % 12.0-15.5 H 788-0) PLT (test code = 304 See_Comment [Automated 777-3) message] The sy stem which generated this result transmitted reference range : 166 - 358 10*3/ ?L. The reference r kuldip was not used to interpret this result as normal/abnormal . MPV (test code = 11.0 fL 9.5-12.9 46523-9) NRBC/100 WBC (test 0.0 See_Comment [Automat ed code = 0734532279) message] The system which generated this result transmitted reference range : 0.0 - 10.0 /100 WBCs. The refer ence range was not u sed to interpret th is result as normal/abnormal . NRBC x10^3 (test code See_Comment [Auto mated = 7854599440) message] The s ystem which generated this result transmitted reference range : 10*3/?L. The reference range was not used to interpret this result as normal/abnormal . GRAN MAT (NEUT) % 68.6 % (test code = 770-8) IMM GRAN % (test code 0.70 % = 0136886617) LYMPH % (test code = 19.8 % 736-9) MONO % (test code = 5.3 % 5905-5) EOS % (test code = 5.1 % 713-8) BASO % (test code = 0.5 % 706-2) GRAN MAT x10^3(ANC) 5.08 10*3/uL 1.88-7.09 (test code = 5113002305) IMM GRAN x10^3 (test 0.05 10*3/uL 0.00-0.06 code = 9010317134) LYMPH x10^3 (test code 1.47 10*3/uL 1.32-3.29 = 731-0) MONO x10^3 (test code 0.39 10*3/uL 0.33-0.92 = 742-7) EOS x10^3 (test code = 0.38 10*3/uL 0.03-0.39 711-2) BASO x10^3 (test code 0.04 10*3/uL 0.01-0.07 = 704-7) Lab Interpretation Abnormal (test code = 04131-5) [facility] WITH [id number] 17:18:52 Test Item Value Reference Range Interpretation Comments WBC (test code = 7.41 See_Comment [Automated 8090-2) message] The sy stem which generated this result transmitted reference range : 4.30 - 11.10 10*3/?L. The reference range was not used to interpret this result as normal/abnormal . RBC (test code = 4.20 See_Comment [Automated 789-8) message] The sy stem which generated this result transmitted reference range : 3.93 - 5.25 10*6/?L. The reference range was not used to interpret this result as normal/abnormal . HGB (test code = 9.1 g/dL 11.6-15.0 L 718-7) HCT (test code = 30.2 % 35.7-45.2 L 4544-3) MCV (test code = 71.9 fL 80.6-95.5 L 787-2) MCH (test code = 21.7 pg 25.9-32.8 L 785-6) MCHC (test code = 30.1 g/dL 31.6-35.1 L 786-4) RDW-SD (test code = 46.2 fL 39.0-49.9 17902-8) RDW-CV (test code = 17.9 % 12.0-15.5 H 788-0) PLT (test code = 304 See_Comment [Automated 777-3) message] The sy stem which generated this result transmitted reference range : 166 - 358 10*3/ ?L. The reference r kuldip was not used to interpret this result as normal/abnormal . MPV (test code = 11.0 fL 9.5-12.9 71779-1) NRBC/100 WBC (test 0.0 See_Comment [Automat ed code = 5925017522) message] The system which generated this result transmitted reference range : 0.0 - 10.0 /100 WBCs. The refer ence range was not u sed to interpret th is result as normal/abnormal . NRBC x10^3 (test code See_Comment [Auto mated = 2812121602) message] The s ystem which generated this result transmitted reference range : 10*3/?L. The reference range was not used to interpret this result as normal/abnormal . GRAN MAT (NEUT) % 68.6 % (test code = 770-8) IMM GRAN % (test code 0.70 % = 1235280344) LYMPH % (test code = 19.8 % 736-9) MONO % (test code = 5.3 % 5905-5) EOS % (test code = 5.1 % 713-8) BASO % (test code = 0.5 % 706-2) GRAN MAT x10^3(ANC) 5.08 10*3/uL 1.88-7.09 (test code = 2009972845) IMM GRAN x10^3 (test 0.05 10*3/uL 0.00-0.06 code = 7397648086) LYMPH x10^3 (test code 1.47 10*3/uL 1.32-3.29 = 731-0) MONO x10^3 (test code 0.39 10*3/uL 0.33-0.92 = 742-7) EOS x10^3 (test code = 0.38 10*3/uL 0.03-0.39 711-2) BASO x10^3 (test code 0.04 10*3/uL 0.01-0.07 = 704-7) Lab Interpretation Abnormal (test code = 56963-2) [facility] WITH [id number] 17:18:52 Test Item Value Reference Range Interpretation Comments WBC (test code = 7.41 See_Comment [Automated 6490-2) message] The sy stem which generated this result transmitted reference range : 4.30 - 11.10 10*3/?L. The reference range was not used to interpret this result as normal/abnormal . RBC (test code = 4.20 See_Comment [Automated 009-8) message] The sy stem which generated this result transmitted reference range : 3.93 - 5.25 10*6/?L. The reference range was not used to interpret this result as normal/abnormal . HGB (test code = 9.1 g/dL 11.6-15.0 L 718-7) HCT (test code = 30.2 % 35.7-45.2 L 4544-3) MCV (test code = 71.9 fL 80.6-95.5 L 787-2) MCH (test code = 21.7 pg 25.9-32.8 L 785-6) MCHC (test code = 30.1 g/dL 31.6-35.1 L 786-4) RDW-SD (test code = 46.2 fL 39.0-49.9 07793-1) RDW-CV (test code = 17.9 % 12.0-15.5 H 788-0) PLT (test code = 304 See_Comment [Automated 777-3) message] The sy stem which generated this result transmitted reference range : 166 - 358 10*3/ ?L. The reference r kuldip was not used to interpret this result as normal/abnormal . MPV (test code = 11.0 fL 9.5-12.9 11092-6) NRBC/100 WBC (test 0.0 See_Comment [Automat ed code = 0829200335) message] The system which generated this result transmitted reference range : 0.0 - 10.0 /100 WBCs. The refer ence range was not u sed to interpret th is result as normal/abnormal . NRBC x10^3 (test code See_Comment [Auto mated = 0197436680) message] The s ystem which generated this result transmitted reference range : 10*3/?L. The reference range was not used to interpret this result as normal/abnormal . GRAN MAT (NEUT) % 68.6 % (test code = 770-8) IMM GRAN % (test code 0.70 % = 7541625618) LYMPH % (test code = 19.8 % 736-9) MONO % (test code = 5.3 % 5905-5) EOS % (test code = 5.1 % 713-8) BASO % (test code = 0.5 % 706-2) GRAN MAT x10^3(ANC) 5.08 10*3/uL 1.88-7.09 (test code = 8616316121) IMM GRAN x10^3 (test 0.05 10*3/uL 0.00-0.06 code = 3159714960) LYMPH x10^3 (test code 1.47 10*3/uL 1.32-3.29 = 731-0) MONO x10^3 (test code 0.39 10*3/uL 0.33-0.92 = 742-7) EOS x10^3 (test code = 0.38 10*3/uL 0.03-0.39 711-2) BASO x10^3 (test code 0.04 10*3/uL 0.01-0.07 = 704-7) Lab Interpretation Abnormal (test code = 69074-0) [facility] WITH [id number] 17:18:52 Test Item Value Reference Range Interpretation Comments WBC (test code = 7.41 See_Comment [Automated 6990-2) message] The sy stem which generated this result transmitted reference range : 4.30 - 11.10 10*3/?L. The reference range was not used to interpret this result as normal/abnormal . RBC (test code = 4.20 See_Comment [Automated 619-8) message] The sy stem which generated this result transmitted reference range : 3.93 - 5.25 10*6/?L. The reference range was not used to interpret this result as normal/abnormal . HGB (test code = 9.1 g/dL 11.6-15.0 L 718-7) HCT (test code = 30.2 % 35.7-45.2 L 4544-3) MCV (test code = 71.9 fL 80.6-95.5 L 787-2) MCH (test code = 21.7 pg 25.9-32.8 L 785-6) MCHC (test code = 30.1 g/dL 31.6-35.1 L 786-4) RDW-SD (test code = 46.2 fL 39.0-49.9 03357-6) RDW-CV (test code = 17.9 % 12.0-15.5 H 788-0) PLT (test code = 304 See_Comment [Automated 207-3) message] The sy stem which generated this result transmitted reference range : 166 - 358 10*3/ ?L. The reference r kuldip was not used to interpret this result as normal/abnormal . MPV (test code = 11.0 fL 9.5-12.9 84410-7) NRBC/100 WBC (test 0.0 See_Comment [Automat ed code = [id number]) message] The system which generated this result transmitted reference range : 0.0 - 10.0 /100 WBCs. The refer ence range was not u sed to interpret th is result as normal/abnormal . NRBC x10^3 (test code See_Comment [Auto mated = [id number]) message] The s ystem which generated this result transmitted reference range : 10*3/?L. The reference range was not used to interpret this result as normal/abnormal . GRAN MAT (NEUT) % 68.6 % (test code = 770-8) IMM GRAN % (test code 0.70 % = [id number]) LYMPH % (test code = 19.8 % 736-9) MONO % (test code = 5.3 % 5905-5) EOS % (test code = 5.1 % 713-8) BASO % (test code = 0.5 % 706-2) GRAN MAT x10^3(ANC) 5.08 10*3/uL 1.88-7.09 (test code = [id number]) IMM GRAN x10^3 (test 0.05 10*3/uL 0.00-0.06 code = [id number]) LYMPH x10^3 (test code 1.47 10*3/uL 1.32-3.29 = 731-0) MONO x10^3 (test code 0.39 10*3/uL 0.33-0.92 = 742-7) EOS x10^3 (test code = 0.38 10*3/uL 0.03-0.39 711-2) BASO x10^3 (test code 0.04 10*3/uL 0.01-0.07 = 704-7) Lab Interpretation Abnormal (test code = 24947-8) [facility] WITH [id number] 17:18:52 Test Item Value Reference Range Interpretation Comments WBC (test code = 7.41 See_Comment [Automated 6690-2) message] The sy stem which generated this result transmitted reference range : 4.30 - 11.10 10*3/?L. The reference range was not used to interpret this result as normal/abnormal . RBC (test code = 4.20 See_Comment [Automated 789-8) message] The sy stem which generated this result transmitted reference range : 3.93 - 5.25 10*6/?L. The reference range was not used to interpret this result as normal/abnormal . HGB (test code = 9.1 g/dL 11.6-15.0 L 718-7) HCT (test code = 30.2 % 35.7-45.2 L 4544-3) MCV (test code = 71.9 fL 80.6-95.5 L 787-2) MCH (test code = 21.7 pg 25.9-32.8 L 785-6) MCHC (test code = 30.1 g/dL 31.6-35.1 L 786-4) RDW-SD (test code = 46.2 fL 39.0-49.9 92422-7) RDW-CV (test code = 17.9 % 12.0-15.5 H 788-0) PLT (test code = 304 See_Comment [Automated 777-3) message] The sy stem which generated this result transmitted reference range : 166 - 358 10*3/ ?L. The reference r kuldip was not used to interpret this result as normal/abnormal . MPV (test code = 11.0 fL 9.5-12.9 30319-8) NRBC/100 WBC (test 0.0 See_Comment [Automat ed code = [id number]) message] The system which generated this result transmitted reference range : 0.0 - 10.0 /100 WBCs. The refer ence range was not u sed to interpret th is result as normal/abnormal . NRBC x10^3 (test code See_Comment [Auto mated = 5366960315) message] The s ystem which generated this result transmitted reference range : 10*3/?L. The reference range was not used to interpret this result as normal/abnormal . GRAN MAT (NEUT) % 68.6 % (test code = 770-8) IMM GRAN % (test code 0.70 % = 2398561327) LYMPH % (test code = 19.8 % 736-9) MONO % (test code = 5.3 % 5905-5) EOS % (test code = 5.1 % 713-8) BASO % (test code = 0.5 % 706-2) GRAN MAT x10^3(ANC) 5.08 10*3/uL 1.88-7.09 (test code = 9479160484) IMM GRAN x10^3 (test 0.05 10*3/uL 0.00-0.06 code = 2502182075) LYMPH x10^3 (test code 1.47 10*3/uL 1.32-3.29 = 731-0) MONO x10^3 (test code 0.39 10*3/uL 0.33-0.92 = 742-7) EOS x10^3 (test code = 0.38 10*3/uL 0.03-0.39 711-2) BASO x10^3 (test code 0.04 10*3/uL 0.01-0.07 = 704-7) Lab Interpretation Abnormal (test code = 64433-2) [facility] WITH [id number] 17:18:52 Test Item Value Reference Range Interpretation Comments WBC (test code = 7.41 See_Comment [Automated 2290-2) message] The sy stem which generated this result transmitted reference range : 4.30 - 11.10 10*3/?L. The reference range was not used to interpret this result as normal/abnormal . RBC (test code = 4.20 See_Comment [Automated 719-8) message] The sy stem which generated this result transmitted reference range : 3.93 - 5.25 10*6/?L. The reference range was not used to interpret this result as normal/abnormal . HGB (test code = 9.1 g/dL 11.6-15.0 L 718-7) HCT (test code = 30.2 % 35.7-45.2 L 4544-3) MCV (test code = 71.9 fL 80.6-95.5 L 787-2) MCH (test code = 21.7 pg 25.9-32.8 L 785-6) MCHC (test code = 30.1 g/dL 31.6-35.1 L 786-4) RDW-SD (test code = 46.2 fL 39.0-49.9 26877-4) RDW-CV (test code = 17.9 % 12.0-15.5 H 788-0) PLT (test code = 304 See_Comment [Automated 777-3) message] The sy stem which generated this result transmitted reference range : 166 - 358 10*3/ ?L. The reference r kuldip was not used to interpret this result as normal/abnormal . MPV (test code = 11.0 fL 9.5-12.9 22496-9) NRBC/100 WBC (test 0.0 See_Comment [Automat ed code = 9456753823) message] The system which generated this result transmitted reference range : 0.0 - 10.0 /100 WBCs. The refer ence range was not u sed to interpret th is result as normal/abnormal . NRBC x10^3 (test code See_Comment [Auto mated = 9641289865) message] The s ystem which generated this result transmitted reference range : 10*3/?L. The reference range was not used to interpret this result as normal/abnormal . GRAN MAT (NEUT) % 68.6 % (test code = 770-8) IMM GRAN % (test code 0.70 % = 7583261604) LYMPH % (test code = 19.8 % 736-9) MONO % (test code = 5.3 % 5905-5) EOS % (test code = 5.1 % 713-8) BASO % (test code = 0.5 % 706-2) GRAN MAT x10^3(ANC) 5.08 10*3/uL 1.88-7.09 (test code = 9059730701) IMM GRAN x10^3 (test 0.05 10*3/uL 0.00-0.06 code = 1908336859) LYMPH x10^3 (test code 1.47 10*3/uL 1.32-3.29 = 731-0) MONO x10^3 (test code 0.39 10*3/uL 0.33-0.92 = 742-7) EOS x10^3 (test code = 0.38 10*3/uL 0.03-0.39 711-2) BASO x10^3 (test code 0.04 10*3/uL 0.01-0.07 = 704-7) Lab Interpretation Abnormal (test code = 56428-8) [facility] WITH [id number] 17:18:52 Test Item Value Reference Range Interpretation Comments WBC (test code = 7.41 See_Comment [Automated 6690-2) message] The sy stem which generated this result transmitted reference range : 4.30 - 11.10 10*3/?L. The reference range was not used to interpret this result as normal/abnormal . RBC (test code = 4.20 See_Comment [Automated 789-8) message] The sy stem which generated this result transmitted reference range : 3.93 - 5.25 10*6/?L. The reference range was not used to interpret this result as normal/abnormal . HGB (test code = 9.1 g/dL 11.6-15.0 L 718-7) HCT (test code = 30.2 % 35.7-45.2 L 4544-3) MCV (test code = 71.9 fL 80.6-95.5 L 787-2) MCH (test code = 21.7 pg 25.9-32.8 L 785-6) MCHC (test code = 30.1 g/dL 31.6-35.1 L 786-4) RDW-SD (test code = 46.2 fL 39.0-49.9 06446-3) RDW-CV (test code = 17.9 % 12.0-15.5 H 788-0) PLT (test code = 304 See_Comment [Automated 777-3) message] The sy stem which generated this result transmitted reference range : 166 - 358 10*3/ ?L. The reference r kuldip was not used to interpret this result as normal/abnormal . MPV (test code = 11.0 fL 9.5-12.9 07270-4) NRBC/100 WBC (test 0.0 See_Comment [Automat ed code = 5920769789) message] The system which generated this result transmitted reference range : 0.0 - 10.0 /100 WBCs. The refer ence range was not u sed to interpret th is result as normal/abnormal . NRBC x10^3 (test code See_Comment [Auto mated = 9542397493) message] The s ystem which generated this result transmitted reference range : 10*3/?L. The reference range was not used to interpret this result as normal/abnormal . GRAN MAT (NEUT) % 68.6 % (test code = 770-8) IMM GRAN % (test code 0.70 % = 9549037509) LYMPH % (test code = 19.8 % 736-9) MONO % (test code = 5.3 % 5905-5) EOS % (test code = 5.1 % 713-8) BASO % (test code = 0.5 % 706-2) GRAN MAT x10^3(ANC) 5.08 10*3/uL 1.88-7.09 (test code = 9116871220) IMM GRAN x10^3 (test 0.05 10*3/uL 0.00-0.06 code = 5426347196) LYMPH x10^3 (test code 1.47 10*3/uL 1.32-3.29 = 731-0) MONO x10^3 (test code 0.39 10*3/uL 0.33-0.92 = 742-7) EOS x10^3 (test code = 0.38 10*3/uL 0.03-0.39 711-2) BASO x10^3 (test code 0.04 10*3/uL 0.01-0.07 = 704-7) Lab Interpretation Abnormal (test code = 15140-9) [facility] WITH [id number] 17:18:52 Test Item Value Reference Range Interpretation Comments WBC (test code = 7.41 See_Comment [Automated 8490-2) message] The sy stem which generated this result transmitted reference range : 4.30 - 11.10 10*3/?L. The reference range was not used to interpret this result as normal/abnormal . RBC (test code = 4.20 See_Comment [Automated 9-8) message] The sy stem which generated this result transmitted reference range : 3.93 - 5.25 10*6/?L. The reference range was not used to interpret this result as normal/abnormal . HGB (test code = 9.1 g/dL 11.6-15.0 L 718-7) HCT (test code = 30.2 % 35.7-45.2 L 4544-3) MCV (test code = 71.9 fL 80.6-95.5 L 787-2) MCH (test code = 21.7 pg 25.9-32.8 L 785-6) MCHC (test code = 30.1 g/dL 31.6-35.1 L 786-4) RDW-SD (test code = 46.2 fL 39.0-49.9 28716-3) RDW-CV (test code = 17.9 % 12.0-15.5 H 788-0) PLT (test code = 304 See_Comment [Automated 777-3) message] The sy stem which generated this result transmitted reference range : 166 - 358 10*3/ ?L. The reference r kuldip was not used to interpret this result as normal/abnormal . MPV (test code = 11.0 fL 9.5-12.9 41115-4) NRBC/100 WBC (test 0.0 See_Comment [Automat ed code = 5588628744) message] The system which generated this result transmitted reference range : 0.0 - 10.0 /100 WBCs. The refer ence range was not u sed to interpret th is result as normal/abnormal . NRBC x10^3 (test code See_Comment [Auto mated = 9695697989) message] The s ystem which generated this result transmitted reference range : 10*3/?L. The reference range was not used to interpret this result as normal/abnormal . GRAN MAT (NEUT) % 68.6 % (test code = 770-8) IMM GRAN % (test code 0.70 % = 8509614385) LYMPH % (test code = 19.8 % 736-9) MONO % (test code = 5.3 % 5905-5) EOS % (test code = 5.1 % 713-8) BASO % (test code = 0.5 % 706-2) GRAN MAT x10^3(ANC) 5.08 10*3/uL 1.88-7.09 (test code = 3963238886) IMM GRAN x10^3 (test 0.05 10*3/uL 0.00-0.06 code = 0674885562) LYMPH x10^3 (test code 1.47 10*3/uL 1.32-3.29 = 731-0) MONO x10^3 (test code 0.39 10*3/uL 0.33-0.92 = 742-7) EOS x10^3 (test code = 0.38 10*3/uL 0.03-0.39 711-2) BASO x10^3 (test code 0.04 10*3/uL 0.01-0.07 = 704-7) Lab Interpretation Abnormal (test code = 80683-3) [facility] [id number] 16:24:00 Test Item Value Reference Range Interpretation Comments POCT PREG (test code = 1605) Negative On board controls acceptable with Yes C Line (test code = 3574) POCT PREG LOT # (test code = 3575) [id number] POCT PREG TEST DATE (test 04-11-2024 code = 3576) Lab Interpretation (test code = Normal 64882-5) [facility] [id number] 16:24:00 Test Item Value Reference Range Interpretation Comments POCT PREG (test code = 1605) Negative On board controls acceptable with Yes C Line (test code = 3574) POCT PREG LOT # (test code = 3575) [id number] POCT PREG TEST DATE (test 04-11-2024 code = 3576) Lab Interpretation (test code = Normal 35190-8) [facility] [id number] 16:24:00 Test Item Value Reference Range Interpretation Comments POCT PREG (test code = 1605) Negative On board controls acceptable with Yes C Line (test code = 3574) POCT PREG LOT # (test code = 3575) [id number] POCT PREG TEST DATE (test 04-11-2024 code = 3576) Lab Interpretation (test code = Normal 72702-0) [facility] [id number] 16:24:00 Test Item Value Reference Range Interpretation Comments POCT PREG (test code = 1605) Negative On board controls acceptable with Yes C Line (test code = 3574) POCT PREG LOT # (test code = 3575) [id number] POCT PREG TEST DATE (test 04-11-2024 code = 3576) Lab Interpretation (test code = Normal 74191-6) [facility] [id number] 16:24:00 Test Item Value Reference Range Interpretation Comments POCT PREG (test code = 1605) Negative On board controls acceptable with Yes C Line (test code = 3574) POCT PREG LOT # (test code = 3575) [id number] POCT PREG TEST DATE (test 04-11-2024 code = 3576) Lab Interpretation (test code = Normal 10045-5) [facility] [id number] 16:24:00 Test Item Value Reference Range Interpretation Comments POCT PREG (test code = 1605) Negative On board controls acceptable with Yes C Line (test code = 3574) POCT PREG LOT # (test code = 3575) [id number] POCT PREG TEST DATE (test 04-11-2024 code = 3576) Lab Interpretation (test code = Normal 94109-9) [facility] [id number] 16:24:00 Test Item Value Reference Range Interpretation Comments POCT PREG (test code = 1605) Negative On board controls acceptable with Yes C Line (test code = 3574) POCT PREG LOT # (test code = 3575) [id number] POCT PREG TEST DATE (test 04-11-2024 code = 3576) Lab Interpretation (test code = Normal 18319-0) [facility] [id number] 16:24:00 Test Item Value Reference Range Interpretation Comments POCT PREG (test code = 1605) Negative On board controls acceptable with Yes C Line (test code = 3574) POCT PREG LOT # (test code = 3575) [id number] POCT PREG TEST DATE (test 04-11-2024 code = 3576) Lab Interpretation (test code = Normal 71577-7) [facility] [id number] 16:24:00 Test Item Value Reference Range Interpretation Comments POCT PREG (test code = 1605) Negative On board controls acceptable with Yes C Line (test code = 3574) POCT PREG LOT # (test code = 3575) [id number] POCT PREG TEST DATE (test 04-11-2024 code = 3576) Lab Interpretation (test code = Normal 12687-8) [facility] [id number] 16:24:00 Test Item Value Reference Range Interpretation Comments POCT PREG (test code = 1605) Negative On board controls acceptable with Yes C Line (test code = 3574) POCT PREG LOT # (test code = 3575) [id number] POCT PREG TEST DATE (test 04-11-2024 code = 3576) Lab Interpretation (test code = Normal 95185-4) [facility] [id number] 16:24:00 Test Item Value Reference Range Interpretation Comments POCT PREG (test code = 1605) Negative On board controls acceptable with Yes C Line (test code = 3574) POCT PREG LOT # (test code = 3575) [id number] POCT PREG TEST DATE (test 04-11-2024 code = 3576) Lab Interpretation (test code = Normal 91640-0) [facility] [id number] 16:24:00 Test Item Value Reference Range Interpretation Comments POCT PREG (test code = 1605) Negative On board controls acceptable with Yes C Line (test code = 3574) POCT PREG LOT # (test code = 3575) [id number] POCT PREG TEST DATE (test 04-11-2024 code = 3576) Lab Interpretation (test code = Normal 98934-4) [facility] ONLY CELIAC SCREEN [id number] 19:09:14 Test Item Value Reference Range Interpretation Comments Tissue Transglutaminase Negative Negative (tTG) Ab, IgA Interpretation (test code = 36971-1) Deamidated Gliadin Peptide Negative Negative (DGP) Ab, IgA Interpretation (test code = 46464-1) Tissue Transglutaminase <=7.0 (tTG) Ab, IgA (test code = 2743246105) Deamidated Gliadin Peptide 0.4 U/mL <=7.0 (DGP) Ab, IgA (test code = 5473936746) ZAINAB (test code = ZAINAB) < 7 U/mL ? Negative7 - 10 U/mL ?Equivocal> 10 U/mL ?Positive In case of equivocal results, we recommend to retest the patient after 8 -12 weeks. Lab Interpretation (test Normal code = 51195-8) [facility] ONLY CELIAC SCREEN [id number] 19:09:14 Test Item Value Reference Range Interpretation Comments Tissue Transglutaminase Negative Negative (tTG) Ab, IgA Interpretation (test code = 06045-1) Deamidated Gliadin Peptide Negative Negative (DGP) Ab, IgA Interpretation (test code = 43884-2) Tissue Transglutaminase <=7.0 (tTG) Ab, IgA (test code = 7978126432) Deamidated Gliadin Peptide 0.4 U/mL <=7.0 (DGP) Ab, IgA (test code = 9100884387) ZAINAB (test code = ZAINAB) < 7 U/mL ? Negative7 - 10 U/mL ?Equivocal> 10 U/mL ?Positive In case of equivocal results, we recommend to retest the patient after 8 -12 weeks. Lab Interpretation (test Normal code = 66771-9) [facility] ONLY CELIAC SCREEN [id number] 19:09:14 Test Item Value Reference Range Interpretation Comments Tissue Transglutaminase Negative Negative (tTG) Ab, IgA Interpretation (test code = 67787-9) Deamidated Gliadin Peptide Negative Negative (DGP) Ab, IgA Interpretation (test code = 98194-9) Tissue Transglutaminase <=7.0 (tTG) Ab, IgA (test code = 3392610251) Deamidated Gliadin Peptide 0.4 U/mL <=7.0 (DGP) Ab, IgA (test code = 1739048931) ZAINAB (test code = ZAINAB) < 7 U/mL ? Negative7 - 10 U/mL ?Equivocal> 10 U/mL ?Positive In case of equivocal results, we recommend to retest the patient after 8 -12 weeks. Lab Interpretation (test Normal code = 09593-1) [facility] ONLY CELIAC SCREEN [id number] 19:09:14 Test Item Value Reference Range Interpretation Comments Tissue Transglutaminase Negative Negative (tTG) Ab, IgA Interpretation (test code = 71300-3) Deamidated Gliadin Peptide Negative Negative (DGP) Ab, IgA Interpretation (test code = 54884-0) Tissue Transglutaminase <=7.0 (tTG) Ab, IgA (test code = 7069297211) Deamidated Gliadin Peptide 0.4 U/mL <=7.0 (DGP) Ab, IgA (test code = 3396727995) ZAINAB (test code = ZAINAB) < 7 U/mL ? Negative7 - 10 U/mL ?Equivocal> 10 U/mL ?Positive In case of equivocal results, we recommend to retest the patient after 8 -12 weeks. Lab Interpretation (test Normal code = 59785-5) [facility] ONLY CELIAC SCREEN [id number] 19:09:14 Test Item Value Reference Range Interpretation Comments Tissue Transglutaminase Negative Negative (tTG) Ab, IgA Interpretation (test code = 23645-3) Deamidated Gliadin Peptide Negative Negative (DGP) Ab, IgA Interpretation (test code = 52585-0) Tissue Transglutaminase <=7.0 (tTG) Ab, IgA (test code = 4790435773) Deamidated Gliadin Peptide 0.4 U/mL <=7.0 (DGP) Ab, IgA (test code = 0141641296) ZAINAB (test code = ZAINAB) < 7 U/mL ? Negative7 - 10 U/mL ?Equivocal> 10 U/mL ?Positive In case of equivocal results, we recommend to retest the patient after 8 -12 weeks. Lab Interpretation (test Normal code = 70138-8) [facility] ONLY CELIAC SCREEN [id number] 19:09:14 Test Item Value Reference Range Interpretation Comments Tissue Transglutaminase Negative Negative (tTG) Ab, IgA Interpretation (test code = 70227-3) Deamidated Gliadin Peptide Negative Negative (DGP) Ab, IgA Interpretation (test code = 44488-6) Tissue Transglutaminase <=7.0 (tTG) Ab, IgA (test code = 7415275555) Deamidated Gliadin Peptide 0.4 U/mL <=7.0 (DGP) Ab, IgA (test code = 0403235187) ZAINAB (test code = ZAINAB) < 7 U/mL ? Negative7 - 10 U/mL ?Equivocal> 10 U/mL ?Positive In case of equivocal results, we recommend to retest the patient after 8 -12 weeks. Lab Interpretation (test Normal code = 51659-3) [facility] ONLY CELIAC SCREEN [id number] 19:09:14 Test Item Value Reference Range Interpretation Comments Tissue Transglutaminase Negative Negative (tTG) Ab, IgA Interpretation (test code = 05464-9) Deamidated Gliadin Peptide Negative Negative (DGP) Ab, IgA Interpretation (test code = 60424-4) Tissue Transglutaminase <=7.0 (tTG) Ab, IgA (test code = 7182442334) Deamidated Gliadin Peptide 0.4 U/mL <=7.0 (DGP) Ab, IgA (test code = 7523111676) ZAINAB (test code = ZAINAB) < 7 U/mL ? Negative7 - 10 U/mL ?Equivocal> 10 U/mL ?Positive In case of equivocal results, we recommend to retest the patient after 8 -12 weeks. Lab Interpretation (test Normal code = 14727-1) [facility] ONLY CELIAC SCREEN [id number] 19:09:14 Test Item Value Reference Range Interpretation Comments Tissue Transglutaminase Negative Negative (tTG) Ab, IgA Interpretation (test code = 48437-2) Deamidated Gliadin Peptide Negative Negative (DGP) Ab, IgA Interpretation (test code = 19300-1) Tissue Transglutaminase <=7.0 (tTG) Ab, IgA (test code = 1851336109) Deamidated Gliadin Peptide 0.4 U/mL <=7.0 (DGP) Ab, IgA (test code = 9479106050) ZAINAB (test code = ZAINAB) < 7 U/mL ? Negative7 - 10 U/mL ?Equivocal> 10 U/mL ?Positive In case of equivocal results, we recommend to retest the patient after 8 -12 weeks. Lab Interpretation (test Normal code = 66731-6) [facility] ONLY CELIAC SCREEN [id number] 19:09:14 Test Item Value Reference Range Interpretation Comments Tissue Transglutaminase Negative Negative (tTG) Ab, IgA Interpretation (test code = 71314-2) Deamidated Gliadin Peptide Negative Negative (DGP) Ab, IgA Interpretation (test code = 99119-7) Tissue Transglutaminase <=7.0 (tTG) Ab, IgA (test code = 3271510234) Deamidated Gliadin Peptide 0.4 U/mL <=7.0 (DGP) Ab, IgA (test code = 2819872098) ZAINAB (test code = ZAINAB) < 7 U/mL ? Negative7 - 10 U/mL ?Equivocal> 10 U/mL ?Positive In case of equivocal results, we recommend to retest the patient after 8 -12 weeks. Lab Interpretation (test Normal code = 65699-2) [facility] ONLY CELIAC SCREEN [id number] 19:09:14 Test Item Value Reference Range Interpretation Comments Tissue Transglutaminase Negative Negative (tTG) Ab, IgA Interpretation (test code = 36272-8) Deamidated Gliadin Peptide Negative Negative (DGP) Ab, IgA Interpretation (test code = 52821-2) Tissue Transglutaminase <=7.0 (tTG) Ab, IgA (test code = 7722147508) Deamidated Gliadin Peptide 0.4 U/mL <=7.0 (DGP) Ab, IgA (test code = 6537650698) ZAINAB (test code = ZAINAB) < 7 U/mL ? Negative7 - 10 U/mL ?Equivocal> 10 U/mL ?Positive In case of equivocal results, we recommend to retest the patient after 8 -12 weeks. Lab Interpretation (test Normal code = 33936-5) [facility] ONLY CELIAC SCREEN [id number] 19:09:14 Test Item Value Reference Range Interpretation Comments Tissue Transglutaminase Negative Negative (tTG) Ab, IgA Interpretation (test code = 26796-9) Deamidated Gliadin Peptide Negative Negative (DGP) Ab, IgA Interpretation (test code = 67118-4) Tissue Transglutaminase <=7.0 (tTG) Ab, IgA (test code = 8039763253) Deamidated Gliadin Peptide 0.4 U/mL <=7.0 (DGP) Ab, IgA (test code = 7241372569) ZAINAB (test code = ZAINAB) < 7 U/mL ? Negative7 - 10 U/mL ?Equivocal> 10 U/mL ?Positive In case of equivocal results, we recommend to retest the patient after 8 -12 weeks. Lab Interpretation (test Normal code = 55109-9) [facility] ONLY CELIAC SCREEN [id number] 19:09:14 Test Item Value Reference Range Interpretation Comments Tissue Transglutaminase Negative Negative (tTG) Ab, IgA Interpretation (test code = 41413-4) Deamidated Gliadin Peptide Negative Negative (DGP) Ab, IgA Interpretation (test code = 63762-9) Tissue Transglutaminase <=7.0 (tTG) Ab, IgA (test code = 8802677847) Deamidated Gliadin Peptide 0.4 U/mL <=7.0 (DGP) Ab, IgA (test code = 9322589578) ZAINAB (test code = ZAINAB) < 7 U/mL ? Negative7 - 10 U/mL ?Equivocal> 10 U/mL ?Positive In case of equivocal results, we recommend to retest the patient after 8 -12 weeks. Lab Interpretation (test Normal code = 74493-2) [facility] [id number] 20:24:44 Test Item Value Reference Range Interpretation Comments Total IgA (test code = 0295475586) 78.3 U/mL 70-312 Lab Interpretation (test code = Normal 18544-9) [facility] [id number] 20:24:44 Test Item Value Reference Range Interpretation Comments Total IgA (test code = 4214846639) 78.3 U/mL 70-312 Lab Interpretation (test code = Normal 40151-0) [facility] [id number] 20:24:44 Test Item Value Reference Range Interpretation Comments Total IgA (test code = 4461123400) 78.3 U/mL 70-312 Lab Interpretation (test code = Normal 18559-9) [facility]2023-09-07 20:24:44 Test Item Value Reference Range Interpretation Comments Total IgA (test code = 4463900041) 78.3 U/mL 70-312 Lab Interpretation (test code = Normal 21680-1) [facility]2023-09-07 20:24:44 Test Item Value Reference Range Interpretation Comments Total IgA (test code = 4342048545) 78.3 U/mL 70-312 Lab Interpretation (test code = Normal 26755-8) [facility]2023-09-07 20:24:44 Test Item Value Reference Range Interpretation Comments Total IgA (test code = 3950289678) 78.3 U/mL 70-312 Lab Interpretation (test code = Normal 23587-6) [facility]2023-09-07 20:24:44 Test Item Value Reference Range Interpretation Comments Total IgA (test code = 7211249321) 78.3 U/mL 70-312 Lab Interpretation (test code = Normal 12236-6) [facility]2023-09-07 20:24:44 Test Item Value Reference Range Interpretation Comments Total IgA (test code = 2215157878) 78.3 U/mL 70-312 Lab Interpretation (test code = Normal 22642-7) [facility]2023-09-07 20:24:44 Test Item Value Reference Range Interpretation Comments Total IgA (test code = 2361152705) 78.3 U/mL 70-312 Lab Interpretation (test code = Normal 02168-6) [facility]2023-09-07 20:24:44 Test Item Value Reference Range Interpretation Comments Total IgA (test code = 9060957243) 78.3 U/mL 70-312 Lab Interpretation (test code = Normal 13012-9) [facility]2023-09-07 20:24:44 Test Item Value Reference Range Interpretation Comments Total IgA (test code = 8957689853) 78.3 U/mL 70-312 Lab Interpretation (test code = Normal 31916-5[id number] Test Item Value Reference Range Interpretation Comments Total IgA (test code = 8190486139) 78.3 U/mL 70-312 Lab Interpretation (test code = Normal 26864-8) [facility] [id number] 17:30:19 Test Item Value Reference Range Interpretation Comments FERRITIN (test code = 4.8 ng/mL 6.0-137.0 L 3559747269) ZAINAB (test code = ZAINAB) Biotin has been reported to cause a negative bias, interpret results relative to patient's use of biotin. Lab Interpretation (test Abnormal code = 36416-5) [facility] [id number] 17:30:19 Test Item Value Reference Range Interpretation Comments FERRITIN (test code = 4.8 ng/mL 6.0-137.0 L [id number]) ZAINAB (test code = ZAINAB) Biotin has been reported to cause a negative bias, interpret results relative to patient's use of biotin. Lab Interpretation (test Abnormal code = 47751-2) [facility] [id number] 17:30:19 Test Item Value Reference Range Interpretation Comments FERRITIN (test code = 4.8 ng/mL 6.0-137.0 L 6494191994) ZAINAB (test code = ZAINAB) Biotin has been reported to cause a negative bias, interpret results relative to patient's use of biotin. Lab Interpretation (test Abnormal code = 03238-4) [facility] [id number] 17:30:19 Test Item Value Reference Range Interpretation Comments FERRITIN (test code = 4.8 ng/mL 6.0-137.0 L 5467640104) ZAINAB (test code = ZAINAB) Biotin has been reported to cause a negative bias, interpret results relative to patient's use of biotin. Lab Interpretation (test Abnormal code = 32086-0) [facility] [id number] 17:30:19 Test Item Value Reference Range Interpretation Comments FERRITIN (test code = 4.8 ng/mL 6.0-137.0 L 3367087288) ZAINAB (test code = ZAINAB) Biotin has been reported to cause a negative bias, interpret results relative to patient's use of biotin. Lab Interpretation (test Abnormal code = 34227-4) [facility]2023-09-07 17:30:19 Test Item Value Reference Range Interpretation Comments FERRITIN (test code = 4.8 ng/mL 6.0-137.0 L 0874638425) ZAINAB (test code = ZAINAB) Biotin has been reported to cause a negative bias, interpret results relative to patient's use of biotin. Lab Interpretation (test Abnormal code = 83369-6) [facility]2023-09-07 17:30:19 Test Item Value Reference Range Interpretation Comments FERRITIN (test code = 4.8 ng/mL 6.0-137.0 L 5360835256) ZAINAB (test code = ZAINAB) Biotin has been reported to cause a negative bias, interpret results relative to patient's use of biotin. Lab Interpretation (test Abnormal code = 91178-5) [facility]2023-09-07 17:30:19 Test Item Value Reference Range Interpretation Comments FERRITIN (test code = 4.8 ng/mL 6.0-137.0 L 6125560192) ZAINAB (test code = ZAINAB) Biotin has been reported to cause a negative bias, interpret results relative to patient's use of biotin. Lab Interpretation (test Abnormal code = 60617-2) [facility]2023-09-07 17:30:19 Test Item Value Reference Range Interpretation Comments F[place]ITIN (test code = 4.8 ng/mL 6.0-137.0 L 7810109756) ZAINAB (test code = ZAINAB) Biotin has been reported to cause a negative bias, interpret results relative to patient's use of biotin. Lab Interpretation (test Abnormal code = 96758-9) [facility] [id number] 17:30:19 Test Item Value Reference Range Interpretation Comments [place] (test code = 4.8 ng/mL 6.0-137.0 L 5758760228) ZAINAB (test code = ZAINAB) Biotin has been reported to cause a negative bias, interpret results relative to patient's use of biotin. Lab Interpretation (test Abnormal code = 43438-6) [facility]2023-09-07 17:30:19 Test Item Value Reference Range Interpretation Comments F[place] (test code = 4.8 ng/mL 6.0-137.0 L 5228716630) ZAINAB (test code = ZAINAB) Biotin has been reported to cause a negative bias, interpret results relative to patient's use of biotin. Lab Interpretation (test Abnormal code = 90972-0) [facility] [id number] 17:30:19 Test Item Value Reference Range Interpretation Comments FERRITIN (test code = 4.8 ng/mL 6.0-137.0 L 4910940849) ZAINAB (test code = ZAINAB) Biotin has been reported to cause a negative bias, interpret results relative to patient's use of biotin. Lab Interpretation (test Abnormal code = 54916-8) [facility] [id number] 17:03:34 Test Item Value Reference Range Interpretation Comments IRON (test code = 7086964188) 34 ug/dL 50-160 L TIBC (test code = 5208296593) 515 ug/dL 250-410 H % FE SAT (test code = 3879980699) 7 % 20-50 L Lab Interpretation (test code = Abnormal 25762-1) [facility] [id number] 17:03:34 Test Item Value Reference Range Interpretation Comments IRON (test code = 5155117862) 34 ug/dL 50-160 L TIBC (test code = 2048035682) 515 ug/dL 250-410 H % FE SAT (test code = 9643261900) 7 % 20-50 L Lab Interpretation (test code = Abnormal 77077-4) [facility] [id number] 17:03:34 Test Item Value Reference Range Interpretation Comments IRON (test code = 4509132899) 34 ug/dL 50-160 L TIBC (test code = 6968995693) 515 ug/dL 250-410 H % FE SAT (test code = 2869207340) 7 % 20-50 L Lab Interpretation (test code = Abnormal 39942-4) [facility] [id number] 17:03:34 Test Item Value Reference Range Interpretation Comments IRON (test code = 4133766943) 34 ug/dL 50-160 L TIBC (test code = 6282844336) 515 ug/dL 250-410 H % FE SAT (test code = 9930218092) 7 % 20-50 L Lab Interpretation (test code = Abnormal 19572-8) [facility]2023-09-07 17:03:34 Test Item Value Reference Range Interpretation Comments IRON (test code = 2649174620) 34 ug/dL 50-160 L TIBC (test code = 7804485501) 515 ug/dL 250-410 H % FE SAT (test code = 4870444401) 7 % 20-50 L Lab Interpretation (test code = Abnormal 68150-5) [facility]2023-09-07 17:03:34 Test Item Value Reference Range Interpretation Comments IRON (test code = 0498868647) 34 ug/dL 50-160 L TIBC (test code = 2995515008) 515 ug/dL 250-410 H % FE SAT (test code = 6700034240) 7 % 20-50 L Lab Interpretation (test code = Abnormal 07829-0) [facility]2023-09-07 17:03:34 Test Item Value Reference Range Interpretation Comments IRON (test code = 9763271690) 34 ug/dL 50-160 L TIBC (test code = 0895827299) 515 ug/dL 250-410 H % FE SAT (test code = 5939940925) 7 % 20-50 L Lab Interpretation (test code = Abnormal 07550-5) [facility]2023-09-07 17:03:34 Test Item Value Reference Range Interpretation Comments IRON (test code = 9801766827) 34 ug/dL 50-160 L TIBC (test code = 4382051689) 515 ug/dL 250-410 H % FE SAT (test code = 6581945356) 7 % 20-50 L Lab Interpretation (test code = Abnormal 16157-9) [facility]2023-09-07 17:03:34 Test Item Value Reference Range Interpretation Comments IRON (test code = 1782778559) 34 ug/dL 50-160 L TIBC (test code = 9783930327) 515 ug/dL 250-410 H % FE SAT (test code = 6946188437) 7 % 20-50 L Lab Interpretation (test code = Abnormal 01488-2) [facility]2023-09-07 17:03:34 Test Item Value Reference Range Interpretation Comments IRON (test code = 8952011913) 34 ug/dL 50-160 L TIBC (test code = 4335669092) 515 ug/dL 250-410 H % FE SAT (test code = 7290201279) 7 % 20-50 L Lab Interpretation (test code = Abnormal 99750-2) [facility] [id number] 17:03:34 Test Item Value Reference Range Interpretation Comments IRON (test code = 4465218684) 34 ug/dL 50-160 L TIBC (test code = 2585993958) 515 ug/dL 250-410 H % FE SAT (test code = 4099296144) 7 % 20-50 L Lab Interpretation (test code = Abnormal 03024-3) [facility] [id number] 17:03:34 Test Item Value Reference Range Interpretation Comments IRON (test code = 8952199240) 34 ug/dL 50-160 L TIBC (test code = 5060052586) 515 ug/dL 250-410 H % FE SAT (test code = 5194335548) 7 % 20-50 L Lab Interpretation (test code = Abnormal 24568-2) [facility]2023-08-24 19:48:06 Test Item Value Reference Range Interpretation Comments [place] (test code = 0.5 mmol/L 0.6-1.2 L 5639011408) ZAINAB (test code = ZAINAB) Toxic Range: ? Greater than 1.2 mmol/L Lab Interpretation (test Abnormal code = 88970-9) [facility]2023-08-24 19:48:06 Test Item Value Reference Range Interpretation Comments [place] (test code = 0.5 mmol/L 0.6-1.2 L 1324485536) ZAINAB (test code = ZAINAB) Toxic Range: ? Greater than 1.2 mmol/L Lab Interpretation (test Abnormal code = 20399-7) [facility]2023-08-24 19:48:06 Test Item Value Reference Range Interpretation Comments [place] (test code = 0.5 mmol/L 0.6-1.2 L 6705993397) ZAINAB (test code = ZAINAB) Toxic Range: ? Greater than 1.2 mmol/L Lab Interpretation (test Abnormal code = 38080-1) [facility]2023-08-24 19:48:06 Test Item Value Reference Range Interpretation Comments [place] (test code = 0.5 mmol/L 0.6-1.2 L 7372465947) ZAINAB (test code = ZAINAB) Toxic Range: ? Greater than 1.2 mmol/L Lab Interpretation (test Abnormal code = 96687-6) [facility]2023-08-24 19:48:06 Test Item Value Reference Range Interpretation Comments [place] (test code = 0.5 mmol/L 0.6-1.2 L 0527605816) ZAINAB (test code = ZAINAB) Toxic Range: ? Greater than 1.2 mmol/L Lab Interpretation (test Abnormal code = 73777-9) [facility]2023-08-24 19:48:06 Test Item Value Reference Range Interpretation Comments [place] (test code = 0.5 mmol/L 0.6-1.2 L 3954276864) ZAINAB (test code = ZAINAB) Toxic Range: ? Greater than 1.2 mmol/L Lab Interpretation (test Abnormal code = 92290-9) [facility]2023-08-24 19:48:06 Test Item Value Reference Range Interpretation Comments [place] (test code = 0.5 mmol/L 0.6-1.2 L 3224195224) ZAINAB (test code = ZAINAB) Toxic Range: ? Greater than 1.2 mmol/L Lab Interpretation (test Abnormal code = 42365-2) [facility]2023-08-24 19:48:06 Test Item Value Reference Range Interpretation Comments [place] (test code = 0.5 mmol/L 0.6-1.2 L 2743472918) ZAINAB (test code = ZAINAB) Toxic Range: ? Greater than 1.2 mmol/L Lab Interpretation (test Abnormal code = 01640-3) [facility]2023-08-24 19:48:06 Test Item Value Reference Range Interpretation Comments [place] (test code = 0.5 mmol/L 0.6-1.2 L 2793837788) ZAINAB (test code = ZAINAB) Toxic Range: ? Greater than 1.2 mmol/L Lab Interpretation (test Abnormal code = 39945-0) [facility]2023-08-24 19:48:06 Test Item Value Reference Range Interpretation Comments [place] (test code = 0.5 mmol/L 0.6-1.2 L 6554394282) ZAINAB (test code = ZAINAB) Toxic Range: ? Greater than 1.2 mmol/L Lab Interpretation (test Abnormal code = 40081-9) [facility]2023-08-24 19:48:06 Test Item Value Reference Range Interpretation Comments [place] (test code = 0.5 mmol/L 0.6-1.2 L 4004622624) ZAINAB (test code = ZAINAB) Toxic Range: ? Greater than 1.2 mmol/L Lab Interpretation (test Abnormal code = 59622-2) [facility]2023-08-24 19:48:06 Test Item Value Reference Range Interpretation Comments [place] (test code = 0.5 mmol/L 0.6-1.2 L 8370004260) ZAINAB (test code = ZAINAB) Toxic Range: ? Greater than 1.2 mmol/L Lab Interpretation (test Abnormal code = 20852-3) [facility]2023-08-24 19:48:06 Test Item Value Reference Range Interpretation Comments [place] (test code = 0.5 mmol/L 0.6-1.2 L 8214316402) ZAINAB (test code = ZAINAB) Toxic Range: ? Greater than 1.2 mmol/L Lab Interpretation (test Abnormal code = 62313-7) [facility]2023-08-24 19:48:06 Test Item Value Reference Range Interpretation Comments [place] (test code = 0.5 mmol/L 0.6-1.2 L 8890262042) ZAINAB (test code = ZAINAB) Toxic Range: ? Greater than 1.2 mmol/L Lab Interpretation (test Abnormal code = 74887-7) [facility] [id number] 17:24:34 Test Item Value Reference Range Interpretation Comments TSH (test code = 1.07 See_Comment [Automated message] 5064709166) The system [employer] generated this result transmitted ref erence range: 0.45 - 4 .70 mIU/L. The refe rence range was not u sed to interpret this result as normal/abnor mal. Lab Interpretation (test Normal code = 34630-5) [facility] [id number] 17:24:34 Test Item Value Reference Range Interpretation Comments TSH (test code = 1.07 See_Comment [Automated message] 2304330298) The system [employer] generated this result transmitted ref erence range: 0.45 - 4 .70 mIU/L. The refe rence range was not u sed to interpret this result as normal/abnor mal. Lab Interpretation (test Normal code = 89491-6) [facility] [id number] 17:24:34 Test Item Value Reference Range Interpretation Comments TSH (test code = 1.07 See_Comment [Automated message] 3539993802) The system [employer] generated this result transmitted ref erence range: 0.45 - 4 .70 mIU/L. The refe rence range was not u sed to interpret this result as normal/abnor mal. Lab Interpretation (test Normal code = 52026-7) [facility] [id number] 17:24:34 Test Item Value Reference Range Interpretation Comments TSH (test code = 1.07 See_Comment [Automated message] 5522708176) The system [employer] generated this result transmitted ref erence range: 0.45 - 4 .70 mIU/L. The refe rence range was not u sed to interpret this result as normal/abnor mal. Lab Interpretation (test Normal code = 27834-7) [facility] [id number] 17:24:34 Test Item Value Reference Range Interpretation Comments TSH (test code = 1.07 See_Comment [Automated message] 6271405853) The system [employer] generated this result transmitted ref erence range: 0.45 - 4 .70 mIU/L. The refe rence range was not u sed to interpret this result as normal/abnor mal. Lab Interpretation (test Normal code = 32479-7) [facility] [id number] 17:24:34 Test Item Value Reference Range Interpretation Comments TSH (test code = 1.07 See_Comment [Automated message] 1626523255) The system [employer] generated this result transmitted ref erence range: 0.45 - 4 .70 mIU/L. The refe rence range was not u sed to interpret this result as normal/abnor mal. Lab Interpretation (test Normal code = 76258-3) [facility] [id number] 17:24:34 Test Item Value Reference Range Interpretation Comments TSH (test code = 1.07 See_Comment [Automated message] 4879389865) The system [employer] generated this result transmitted ref erence range: 0.45 - 4 .70 mIU/L. The refe rence range was not u sed to interpret this result as normal/abnor mal. Lab Interpretation (test Normal code = 60026-1) [facility]2023-08-24 17:24:34 Test Item Value Reference Range Interpretation Comments TSH (test code = 1.07 See_Comment [Automated message] 7780212511) The system [employer] generated this result transmitted ref erence range: 0.45 - 4 .70 mIU/L. The refe rence range was not u sed to interpret this result as normal/abnor mal. Lab Interpretation (test Normal code = 74418-2) [facility] [id number] 17:24:34 Test Item Value Reference Range Interpretation Comments TSH (test code = 1.07 See_Comment [Automated message] 5586161122) The system [employer] generated this result transmitted ref erence range: 0.45 - 4 .70 mIU/L. The refe rence range was not u sed to interpret this result as normal/abnor mal. Lab Interpretation (test Normal code = 87056-2) [facility] [id number] 17:24:34 Test Item Value Reference Range Interpretation Comments TSH (test code = 1.07 See_Comment [Automated message] 9983961838) The system [employer] generated this result transmitted ref erence range: 0.45 - 4 .70 mIU/L. The refe rence range was not u sed to interpret this result as normal/abnor mal. Lab Interpretation (test Normal code = 87841-1) [facility] [id number] 17:24:34 Test Item Value Reference Range Interpretation Comments TSH (test code = 1.07 See_Comment [Automated message] 9141795010) The system [employer] generated this result transmitted ref erence range: 0.45 - 4 .70 mIU/L. The refe rence range was not u sed to interpret this result as normal/abnor mal. Lab Interpretation (test Normal code = 48039-9) [facility] [id number] 17:24:34 Test Item Value Reference Range Interpretation Comments TSH (test code = 1.07 See_Comment [Automated message] [id number]) The system [employer] generated this result transmitted ref erence range: 0.45 - 4 .70 mIU/L. The refe rence range was not u sed to interpret this result as normal/abnor mal. Lab Interpretation (test Normal code = 63889-4) [facility] [id number] 17:24:34 Test Item Value Reference Range Interpretation Comments TSH (test code = 1.07 See_Comment [Automated message] 9839298701) The system [employer] generated this result transmitted ref erence range: 0.45 - 4 .70 mIU/L. The refe rence range was not u sed to interpret this result as normal/abnor mal. Lab Interpretation (test Normal code = 09134-5) [facility] [id number] 17:24:34 Test Item Value Reference Range Interpretation Comments TSH (test code = 1.07 See_Comment [Automated message] 7383988430) The system [employer] generated this result transmitted ref erence range: 0.45 - 4 .70 mIU/L. The refe rence range was not u sed to interpret this result as normal/abnor mal. Lab Interpretation (test Normal code = 50964-6) [facility] METABOLIC PANEL (36193)2022-10-05 16:54:48 Test Item Value Reference Range Interpretation Comments NA (test code = 140 mmol/L 135-145 7649798629) K (test code = 4.6 mmol/L 3.5-5.0 4042300199) CL (test code = 106 mmol/L 98-108 9256374812) CO2 TOTAL (test code = 28 mmol/L 23-31 3608258692) AGAP (test code = 6 2-16 4924622303) BUN (test code = 5 mg/dL 7-23 L 8884725869) GLUCOSE (test code = 90 mg/dL 70-110 5723790751) CREATININE (test code = 0.54 mg/dL 0.50-1.04 2747668448) TOTAL BILI (test code = 0.1 mg/dL 0.1-1.7 3837139913) CALCIUM (test code = 9.6 mg/dL 8.6-10.6 8262303963) T PROTEIN (test code = 6.2 g/dL 6.3-8.2 L 7248749000) ALBUMIN (test code = 4.0 g/dL 3.5-5.0 4541898636) ALK PHOS (test code = 125 U/L 34-122 H 5442307374) ALTv (test code = 29 U/L 5-35 2-6) AST(SGOT) (test code = 24 U/L 13-40 1426719328) eGFR (test code = 122.1 mL/min/1.73m2 9295464272) ZAINAB (test code = ZAINAB) Association of [...] tests). Lab Interpretation Abnormal (test code = 43705-1) [facility] (98039)(TOTAL CHOLESTEROL, TRIGLYCERIDES, HDL)2022-10-05 16:54:48 Test Item Value Reference Range Interpretation Comments CHOL (test code = 4461442991) 183 mg/dL 120-200 HDL (test code = 9995484705) 40 mg/dL >=50 L HDLC RATIO (test code = 6775768567) 4.6 <=4.5 H TRIG (test code = 6103036504) 128 mg/dL 30-170 LDL CHOL (test code = 25009-9) 117 mg/dL <=160 VLDL (test code = 2483059866) 26 mg/dL 5-60 Lab Interpretation (test code = Abnormal 00553-4) [facility] MET[facility]OLIC PAN[facility] (16224)2022-10-05 16:54:48 Test Item Value Reference Range Interpretation Comments NA (test code = 140 mmol/L 135-145 4588675058) K (test code = 4.6 mmol/L 3.5-5.0 1922202427) CL (test code = 106 mmol/L 98-108 9544241382) CO2 TOTAL (test code = 28 mmol/L 23-31 6595903002) AGAP (test code = 6 2-16 1287043514) BUN (test code = 5 mg/dL 7-23 L 8129924745) GLUCOSE (test code = 90 mg/dL 70-110 6112322957) CREATININE (test code = 0.54 mg/dL 0.50-1.04 0691667393) TOTAL BILI (test code = 0.1 mg/dL 0.1-1.5 4177301615) CALCIUM (test code = 9.6 mg/dL 8.6-10.6 3856221873) T PROTEIN (test code = 6.2 g/dL 6.3-8.2 L 6676473946) ALBUMIN (test code = 4.0 g/dL 3.5-5.0 5643331259) ALK PHOS (test code = 125 U/L 34-122 H 5814501556) ALTv (test code = 29 U/L 5-35 1742-6) AST(SGOT) (test code = 24 U/L 13-40 9980530208) eGFR (test code = 122.1 mL/min/1.73m2 8012328459) ZAINAB (test code = ZAINAB) Association of [...] tests). Lab Interpretation Abnormal (test code = 91750-0) [facility] (84938)(TOTAL CHOLESTEROL, TRIGLYCERIDES, HDL)2022-10-05 16:54:48 Test Item Value Reference Range Interpretation Comments CHOL (test code = 5520693864) 183 mg/dL 120-200 HDL (test code = 6678718220) 40 mg/dL >=50 L HDLC RATIO (test code = 0673939472) 4.6 <=4.5 H TRIG (test code = 3582975200) 128 mg/dL 30-170 LDL CHOL (test code = 38004-9) 117 mg/dL <=160 VLDL (test code = 0543329864) 26 mg/dL 5-60 Lab Interpretation (test code = Abnormal 78559-8) [facility] METABOLIC PANEL (69002)2022-10-05 16:54:48 Test Item Value Reference Range Interpretation Comments NA (test code = 140 mmol/L 135-145 7537802689) K (test code = 4.6 mmol/L 3.5-5.0 0436345107) CL (test code = 106 mmol/L 98-108 0371694624) CO2 TOTAL (test code = 28 mmol/L 23-31 9954376591) AGAP (test code = 6 2-16 8555186956) BUN (test code = 5 mg/dL 7-23 L 8718836845) GLUCOSE (test code = 90 mg/dL 70-110 1050414816) CREATININE (test code = 0.54 mg/dL 0.50-1.04 7578779320) TOTAL BILI (test code = 0.1 mg/dL 0.1-1.5 0788328725) CALCIUM (test code = 9.6 mg/dL 8.6-10.6 2375687342) T PROTEIN (test code = 6.2 g/dL 6.3-8.2 L 4750355998) ALBUMIN (test code = 4.0 g/dL 3.5-5.0 1215423143) ALK PHOS (test code = 125 U/L 34-122 H 0321874050) ALTv (test code = 29 U/L 5-35 1742-6) AST(SGOT) (test code = 24 U/L 13-40 6846751247) eGFR (test code = 122.1 mL/min/1.73m2 2856546813) ZAINAB (test code = ZAINAB) Association of [...] tests). Lab Interpretation Abnormal (test code = 83566-4) [facility] (44058)(TOTAL CHOLESTEROL, TRIGLYCERIDES, HDL)2022-10-05 16:54:48 Test Item Value Reference Range Interpretation Comments CHOL (test code = 1998092617) 183 mg/dL 120-200 HDL (test code = 2715702663) 40 mg/dL >=50 L HDLC RATIO (test code = 7723175254) 4.6 <=4.5 H TRIG (test code = 9530759956) 128 mg/dL 30-170 LDL CHOL (test code = 97953-8) 117 mg/dL <=160 VLDL (test code = 7119060720) 26 mg/dL 5-60 Lab Interpretation (test code = Abnormal 66792-9) [facility] (46802)(TOTAL CHOLESTEROL, TRIGLYCERIDES, HDL)2022-10-05 16:54:48 Test Item Value Reference Range Interpretation Comments CHOL (test code = 7276245927) 183 mg/dL 120-200 HDL (test code = 0735886633) 40 mg/dL >=50 L HDLC RATIO (test code = 1174833771) 4.6 <=4.5 H TRIG (test code = 0826754911) 128 mg/dL 30-170 LDL CHOL (test code = 32543-5) 117 mg/dL <=160 VLDL (test code = 5767466396) 26 mg/dL 5-60 Lab Interpretation (test code = Abnormal 48032-4) [facility] (21392)(TOTAL CHOLESTEROL, TRIGLYCERIDES, HDL)2022-10-05 16:54:48 Test Item Value Reference Range Interpretation Comments CHOL (test code = 2138362126) 183 mg/dL 120-200 HDL (test code = 8848109848) 40 mg/dL >=50 L HDLC RATIO (test code = 5437829315) 4.6 <=4.5 H TRIG (test code = 7108557718) 128 mg/dL 30-170 LDL CHOL (test code = 95346-2) 117 mg/dL <=160 VLDL (test code = 4394126572) 26 mg/dL 5-60 Lab Interpretation (test code = Abnormal 47679-1) [facility] (06610)(TOTAL CHOLESTEROL, TRIGLYCERIDES, HDL)2022-10-05 16:54:48 Test Item Value Reference Range Interpretation Comments CHOL (test code = 4765979290) 183 mg/dL 120-200 HDL (test code = 1577688356) 40 mg/dL >=50 L HDLC RATIO (test code = 1243413425) 4.6 <=4.5 H TRIG (test code = 8718491618) 128 mg/dL 30-170 LDL CHOL (test code = 25867-9) 117 mg/dL <=160 VLDL (test code = 5862888519) 26 mg/dL 5-60 Lab Interpretation (test code = Abnormal 87077-2) [facility] (02359)(TOTAL CHOLESTEROL, TRIGLYCERIDES, HDL)2022-10-05 16:54:48 Test Item Value Reference Range Interpretation Comments CHOL (test code = 4161769139) 183 mg/dL 120-200 HDL (test code = 9831863377) 40 mg/dL >=50 L HDLC RATIO (test code = 9860600530) 4.6 <=4.5 H TRIG (test code = 5325815264) 128 mg/dL 30-170 LDL CHOL (test code = 31597-4) 117 mg/dL <=160 VLDL (test code = 8075545134) 26 mg/dL 5-60 Lab Interpretation (test code = Abnormal 29008-7) [facility] (99024)(TOTAL CHOLESTEROL, TRIGLYCERIDES, HDL)2022-10-05 16:54:48 Test Item Value Reference Range Interpretation Comments CHOL (test code = 1988684665) 183 mg/dL 120-200 HDL (test code = 7079954642) 40 mg/dL >=50 L HDLC RATIO (test code = 9719700869) 4.6 <=4.5 H TRIG (test code = 1187930131) 128 mg/dL 30-170 LDL CHOL (test code = 70397-5) 117 mg/dL <=160 VLDL (test code = 3853063817) 26 mg/dL 5-60 Lab Interpretation (test code = Abnormal 82180-8) [facility] SystemLIPID PANEL (19539)(TOTAL CHOLESTEROL, TRIGLYCERIDES, HDL)2022-10-05 16:54:48 Test Item Value Reference Range Interpretation Comments CHOL (test code = 9089816868) 183 mg/dL 120-200 HDL (test code = 8693649231) 40 mg/dL >=50 L HDLC RATIO (test code = 8827728094) 4.6 <=4.5 H TRIG (test code = 3685888201) 128 mg/dL 30-170 LDL CHOL (test code = 62914-7) 117 mg/dL <=160 VLDL (test code = 3679782781) 26 mg/dL 5-60 Lab Interpretation (test code = Abnormal 62242-0) [facility] (12307)(TOTAL CHOLESTEROL, TRIGLYCERIDES, HDL)2022-10-05 16:54:48 Test Item Value Reference Range Interpretation Comments CHOL (test code = 8926176700) 183 mg/dL 120-200 HDL (test code = 8925828933) 40 mg/dL >=50 L HDLC RATIO (test code = 5044786237) 4.6 <=4.5 H TRIG (test code = 2168012433) 128 mg/dL 30-170 LDL CHOL (test code = 05452-4) 117 mg/dL <=160 VLDL (test code = 3845412706) 26 mg/dL 5-60 Lab Interpretation (test code = Abnormal 58941-8) [facility] (03898)(TOTAL CHOLESTEROL, TRIGLYCERIDES, HDL)2022-10-05 16:54:48 Test Item Value Reference Range Interpretation Comments CHOL (test code = 7265967682) 183 mg/dL 120-200 HDL (test code = 9457313408) 40 mg/dL >=50 L HDLC RATIO (test code = 8297979300) 4.6 <=4.5 H TRIG (test code = 0939422892) 128 mg/dL 30-170 LDL CHOL (test code = 71353-2) 117 mg/dL <=160 VLDL (test code = 0943710273) 26 mg/dL 5-60 Lab Interpretation (test code = Abnormal 45866-5) [facility] (69235)(TOTAL CHOLESTEROL, TRIGLYCERIDES, HDL)2022-10-05 16:54:48 Test Item Value Reference Range Interpretation Comments CHOL (test code = 7215583411) 183 mg/dL 120-200 HDL (test code = 2468787214) 40 mg/dL >=50 L HDLC RATIO (test code = 2606696536) 4.6 <=4.5 H TRIG (test code = 7379932756) 128 mg/dL 30-170 LDL CHOL (test code = 62672-2) 117 mg/dL <=160 VLDL (test code = 3719726597) 26 mg/dL 5-60 Lab Interpretation (test code = Abnormal 70007-4) [facility] (40711)(TOTAL CHOLESTEROL, TRIGLYCERIDES, HDL)2022-10-05 16:54:48 Test Item Value Reference Range Interpretation Comments CHOL (test code = 8600431530) 183 mg/dL 120-200 HDL (test code = 9608437655) 40 mg/dL >=50 L HDLC RATIO (test code = 1356006611) 4.6 <=4.5 H TRIG (test code = 7553075732) 128 mg/dL 30-170 LDL CHOL (test code = 34698-9) 117 mg/dL <=160 VLDL (test code = 2461073637) 26 mg/dL 5-60 Lab Interpretation (test code = Abnormal 42353-0) [facility] (24134)(TOTAL CHOLESTEROL, TRIGLYCERIDES, HDL)2022-10-05 16:54:48 Test Item Value Reference Range Interpretation Comments CHOL (test code = 6252330172) 183 mg/dL 120-200 HDL (test code = 0473760749) 40 mg/dL >=50 L HDLC RATIO (test code = 0640220111) 4.6 <=4.5 H TRIG (test code = 8401254887) 128 mg/dL 30-170 LDL CHOL (test code = 44139-5) 117 mg/dL <=160 VLDL (test code = 9385823808) 26 mg/dL 5-60 Lab Interpretation (test code = Abnormal 49665-4) [facility]GLYCOSYLATED HEMOGLOBIN (A1C)2022-10-05 15:51:11 Test Item Value Reference Range Interpretation Comments HGB A1C (test code = 5.1 % 4.0-5.7 4548-4) ZAINAB (test code = ZAINAB) Reference RangesNormal: <5.7%Prediabetes: 5.7 - 6.4%Diabetes: > 6.5% Lab Interpretation (test Normal code = 52664-2) [facility]OSYLATED [facility]EMOGLOBIN (A1C)2022-10-05 15:51:11 Test Item Value Reference Range Interpretation Comments HGB A1C (test code = 5.1 % 4.0-5.7 4548-4) ZAINAB (test code = ZAINAB) Reference RangesNormal: <5.7%Prediabetes: 5.7 - 6.4%Diabetes: > 6.5% Lab Interpretation (test Normal code = 79072-8) [facility]GLOB[facility] (A1C)2022-10-05 15:51:11 Test Item Value Reference Range Interpretation Comments HGB A1C (test code = 5.1 % 4.0-5.7 4548-4) ZAINAB (test code = ZAINAB) Reference RangesNormal: <5.7%Prediabetes: 5.7 - 6.4%Diabetes: > 6.5% Lab Interpretation (test Normal code = 13107-8) [facility]GLOBIN (A1C)2022-10-05 15:51:11 Test Item Value Reference Range Interpretation Comments HGB A1C (test code = 5.1 % 4.0-5.7 4548-4) ZAINAB (test code = ZAINAB) Reference RangesNormal: <5.7%Prediabetes: 5.7 - 6.4%Diabetes: > 6.5% Lab Interpretation (test Normal code = 81780-0) [facility]EM[facility]GLOBIN (A1C)2022-10-05 15:51:11 Test Item Value Reference Range Interpretation Comments HGB A1C (test code = 5.1 % 4.0-5.7 4548-4) ZAINAB (test code = ZAINAB) Reference RangesNormal: <5.7%Prediabetes: 5.7 - 6.4%Diabetes: > 6.5% Lab Interpretation (test Normal code = 51750-7) [facility]EM[facility]GLOBIN (A1C)2022-10-05 15:51:11 Test Item Value Reference Range Interpretation Comments HGB A1C (test code = 5.1 % 4.0-5.7 4548-4) ZAINAB (test code = ZAINAB) Reference RangesNormal: <5.7%Prediabetes: 5.7 - 6.4%Diabetes: > 6.5% Lab Interpretation (test Normal code = 27320-8) [facility]GLOBIN (A1C)2022-10-05 15:51:11 Test Item Value Reference Range Interpretation Comments HGB A1C (test code = 5.1 % 4.0-5.7 4548-4) ZAINAB (test code = ZAINAB) Reference RangesNormal: <5.7%Prediabetes: 5.7 - 6.4%Diabetes: > 6.5% Lab Interpretation (test Normal code = 46878-3) [facility]GLOBIN (A1C)2022-10-05 15:51:11 Test Item Value Reference Range Interpretation Comments HGB A1C (test code = 5.1 % 4.0-5.7 4548-4) ZAINAB (test code = ZAINAB) Reference RangesNormal: <5.7%Prediabetes: 5.7 - 6.4%Diabetes: > 6.5% Lab Interpretation (test Normal code = 32884-5) [facility]GLOBIN (A1C)2022-10-05 15:51:11 Test Item Value Reference Range Interpretation Comments HGB A1C (test code = 5.1 % 4.0-5.7 4548-4) AZINAB (test code = ZAINAB) Reference RangesNormal: <5.7%Prediabetes: 5.7 - 6.4%Diabetes: > 6.5% Lab Interpretation (test Normal code = 56686-4) [facility]GLOBIN (A1C)2022-10-05 15:51:11 Test Item Value Reference Range Interpretation Comments HGB A1C (test code = 5.1 % 4.0-5.7 4548-4) ZAINAB (test code = ZAINAB) Reference RangesNormal: <5.7%Prediabetes: 5.7 - 6.4%Diabetes: > 6.5% Lab Interpretation (test Normal code = 21689-8) [facility]GLOBIN (A1C)2022-10-05 15:51:11 Test Item Value Reference Range Interpretation Comments HGB A1C (test code = 5.1 % 4.0-5.7 4548-4) ZAINAB (test code = ZAINAB) Reference RangesNormal: <5.7%Prediabetes: 5.7 - 6.4%Diabetes: > 6.5% Lab Interpretation (test Normal code = 48236-5) [facility]GL[facility]OS[facility]ATED [facility]EM[facility]GLOBIN (A1C)2022-10-05 15:51:11 Test Item Value Reference Range Interpretation Comments HGB A1C (test code = 5.1 % 4.0-5.7 4548-4) ZAINAB (test code = ZAINAB) Reference RangesNormal: <5.7%Prediabetes: 5.7 - 6.4%Diabetes: > 6.5% Lab Interpretation (test Normal code = 40388-2) [facility]GL[facility]OS[facility]GLOBIN (A1C)2022-10-05 15:51:11 Test Item Value Reference Range Interpretation Comments HGB A1C (test code = 5.1 % 4.0-5.7 4548-4) ZAINAB (test code = ZAINAB) Reference RangesNormal: <5.7%Prediabetes: 5.7 - 6.4%Diabetes: > 6.5% Lab Interpretation (test Normal code = 66701-3) [facility]GL[facility]GLOBIN (A1C)2022-10-05 15:51:11 Test Item Value Reference Range Interpretation Comments HGB A1C (test code = 5.1 % 4.0-5.7 4548-4) ZAINAB (test code = ZAINAB) Reference RangesNormal: <5.7%Prediabetes: 5.7 - 6.4%Diabetes: > 6.5% Lab Interpretation (test Normal code = 70321-1) [facility] SystemCBC WITH [id number] 15:20:32 Test Item Value Reference Range Interpretation Comments WBC (test code = 6.67 See_Comment [Automated 5568-2) message] The sy stem which generated this result transmitted reference range : 4.30 - 11.10 10*3/?L. The reference range was not used to interpret this result as normal/abnormal . RBC (test code = 4.04 See_Comment [Automated 059-8) message] The sy stem which generated this [...] RDW-SD (test code = 47.8 fL 39.0-49.9 80610-7) RDW-CV (test code = 18.0 % 12.0-15.5 H 788-0) PLT (test code = 296 See_Comment [Automated 547-3) message] The sy stem which generated this result transmitted reference range : 166 - 358 10*3/ ?L. The reference r kuldip was not used to interpret this result as normal/abnormal . MPV (test code = 10.7 fL 9.5-12.9 89718-2) NRBC/100 WBC (test 0.0 See_Comment [Automat ed code = 6395543509) message] The system which generated this result transmitted reference range : 0.0 - 10.0 /100 WBCs. The refer ence range was not u sed to interpret th is result as normal/abnormal . NRBC x10^3 (test code See_Comment [Auto mated = 1600612069) message] The s ystem which generated this result transmitted reference range : 10*3/?L. The reference range was not used to interpret this result as normal/abnormal . GRAN MAT (NEUT) % 70.0 % (test code = 770-8) IMM GRAN % (test code 0.40 % = 2682225780) LYMPH % (test code = 18.7 % 736-9) MONO % (test code = 5.7 % 5905-5) EOS % (test code = 4.5 % 713-8) BASO % (test code = 0.7 % 706-2) GRAN MAT x10^3(ANC) 4.66 10*3/uL 1.88-7.09 (test code = 5080946560) IMM GRAN x10^3 (test 0.03 10*3/uL 0.00-0.06 code = 7820036384) LYMPH x10^3 (test code 1.25 10*3/uL 1.32-3.29 L = 731-0) MONO x10^3 (test code 0.38 10*3/uL 0.33-0.92 = 742-7) EOS x10^3 (test code = 0.30 10*3/uL 0.03-0.39 711-2) BASO x10^3 (test code 0.05 10*3/uL 0.01-0.07 = 704-7) Lab Interpretation Abnormal (test code = 27668-0) [facility] WITH [id number] 15:20:32 Test Item Value Reference Range Interpretation [...] RDW-SD (test code = 47.8 fL 39.0-49.9 13399-9) RDW-CV (test code = 18.0 % 12.0-15.5 H 788-0) PLT (test code = 296 See_Comment [Automated 777-3) message] The sy stem which generated this result transmitted reference range : 166 - 358 10*3/ ?L. The reference r kuldip was not used to interpret this result as normal/abnormal . MPV (test code = 10.7 fL 9.5-12.9 45108-6) NRBC/100 WBC (test 0.0 See_Comment [Automat ed code = 0887361148) message] The system which generated this result transmitted reference range : 0.0 - 10.0 /100 WBCs. The refer ence range was not u sed to interpret th is result as normal/abnormal . NRBC x10^3 (test code See_Comment [Auto mated = 7042050454) message] The s ystem which generated this result transmitted reference range : 10*3/?L. The reference range was not used to interpret this result as normal/abnormal . GRAN MAT (NEUT) % 70.0 % (test code = 770-8) IMM GRAN % (test code 0.40 % = 0117859743) LYMPH % (test code = 18.7 % 736-9) MONO % (test code = 5.7 % 5905-5) EOS % (test code = 4.5 % 713-8) BASO % (test code = 0.7 % 706-2) GRAN MAT x10^3(ANC) 4.66 10*3/uL 1.88-7.09 (test code = 0303004106) IMM GRAN x10^3 (test 0.03 10*3/uL 0.00-0.06 code = 2733569176) LYMPH x10^3 (test code 1.25 10*3/uL 1.32-3.29 L = 731-0) MONO x10^3 (test code 0.38 10*3/uL 0.33-0.92 = 742-7) EOS x10^3 (test code = 0.30 10*3/uL 0.03-0.39 711-2) BASO x10^3 (test code 0.05 10*3/uL 0.01-0.07 = 704-7) Lab Interpretation Abnormal (test code = 63822-0) [facility] WITH [id number] 15:20:32 Test Item Value Reference Range Interpretation Comments WBC (test code = 6.67 See_Comment [Automated 7090-2) message] The sy stem which generated this result transmitted reference range : 4.30 - 11.10 10*3/?L. The reference range was not used to interpret this result as normal/abnormal . RBC (test code = 4.04 See_Comment [Automated 689-8) message] The sy stem which generated this [...] RDW-SD (test code = 47.8 fL 39.0-49.9 30233-5) RDW-CV (test code = 18.0 % 12.0-15.5 H 788-0) PLT (test code = 296 See_Comment [Automated 777-3) message] The sy stem which generated this result transmitted reference range : 166 - 358 10*3/ ?L. The reference r kuldip was not used to interpret this result as normal/abnormal . MPV (test code = 10.7 fL 9.5-12.9 13488-9) NRBC/100 WBC (test 0.0 See_Comment [Automat ed code = 5391510782) message] The system which generated this result transmitted reference range : 0.0 - 10.0 /100 WBCs. The refer ence range was not u sed to interpret th is result as normal/abnormal . NRBC x10^3 (test code See_Comment [Auto mated = 5857050736) message] The s ystem which generated this result transmitted reference range : 10*3/?L. The reference range was not used to interpret this result as normal/abnormal . GRAN MAT (NEUT) % 70.0 % (test code = 770-8) IMM GRAN % (test code 0.40 % = 5726784223) LYMPH % (test code = 18.7 % 736-9) MONO % (test code = 5.7 % 5905-5) EOS % (test code = 4.5 % 713-8) BASO % (test code = 0.7 % 706-2) GRAN MAT x10^3(ANC) 4.66 10*3/uL 1.88-7.09 (test code = 8909691873) IMM GRAN x10^3 (test 0.03 10*3/uL 0.00-0.06 code = 3536235687) LYMPH x10^3 (test code 1.25 10*3/uL 1.32-3.29 L = 731-0) MONO x10^3 (test code 0.38 10*3/uL 0.33-0.92 = 742-7) EOS x10^3 (test code = 0.30 10*3/uL 0.03-0.39 711-2) BASO x10^3 (test code 0.05 10*3/uL 0.01-0.07 = 704-7) Lab Interpretation Abnormal (test code = 75406-1) [facility]2023-06-14 17:27:33 Test Item Value Reference Range Interpretation Comments [place] (test code = 0.3 mmol/L 0.6-1.2 L 2432992701) ZAINAB (test code = ZAINAB) Toxic Range: ? Greater than 1.2 mmol/L Lab Interpretation (test Abnormal code = 21394-6) [address]06-14 17:27:33 Test Item Value Reference Range Interpretation Comments [place] (test code = 0.3 mmol/L 0.6-1.2 L 1965236688) ZAINAB (test code = ZAINAB) Toxic Range: ? Greater than 1.2 mmol/L Lab Interpretation (test Abnormal code = 49701-2) [address]06-14 17:27:33 Test Item Value Reference Range Interpretation Comments [place] (test code = 0.3 mmol/L 0.6-1.2 L 6430915463) ZAINAB (test code = ZAINAB) Toxic Range: ? Greater than 1.2 mmol/L Lab Interpretation (test Abnormal code = 64779-0) [facility]2023-06-14 17:27:33 Test Item Value Reference Range Interpretation Comments [place] (test code = 0.3 mmol/L 0.6-1.2 L 3382327159) ZAINAB (test code = ZAINAB) Toxic Range: ? Greater than 1.2 mmol/L Lab Interpretation (test Abnormal code = 95284-0) [facility]2023-06-14 17:27:33 Test Item Value Reference Range Interpretation Comments [place] (test code = 0.3 mmol/L 0.6-1.2 L 8013395183) ZAINAB (test code = ZAINAB) Toxic Range: ? Greater than 1.2 mmol/L Lab Interpretation (test Abnormal code = 83197-8) [facility]2023-06-14 17:27:33 Test Item Value Reference Range Interpretation Comments [place] (test code = 0.3 mmol/L 0.6-1.2 L 4830749480) ZAINAB (test code = ZAINAB) Toxic Range: ? Greater than 1.2 mmol/L Lab Interpretation (test Abnormal code = 26657-8) [facility]2023-06-14 17:27:33 Test Item Value Reference Range Interpretation Comments [place] (test code = 0.3 mmol/L 0.6-1.2 L 2313036590) ZAINAB (test code = ZAINAB) Toxic Range: ? Greater than 1.2 mmol/L Lab Interpretation (test Abnormal code = 91415-7) [facility]2023-06-14 17:27:33 Test Item Value Reference Range Interpretation Comments [place] (test code = 0.3 mmol/L 0.6-1.2 L 9380106303) ZAINAB (test code = ZAINAB) Toxic Range: ? Greater than 1.2 mmol/L Lab Interpretation (test Abnormal code = 45468-7) [facility]2023-06-14 17:27:33 Test Item Value Reference Range Interpretation Comments [place] (test code = 0.3 mmol/L 0.6-1.2 L 2337639194) ZAINAB (test code = ZAINAB) Toxic Range: ? Greater than 1.2 mmol/L Lab Interpretation (test Abnormal code = 37431-6) [facility]2023-06-14 17:27:33 Test Item Value Reference Range Interpretation Comments [place] (test code = 0.3 mmol/L 0.6-1.2 L 5730090927) ZAINAB (test code = ZAINAB) Toxic Range: ? Greater than 1.2 mmol/L Lab Interpretation (test Abnormal code = 92087-0) [facility]2023-06-14 17:27:33 Test Item Value Reference Range Interpretation Comments [place] (test code = 0.3 mmol/L 0.6-1.2 L 4815012902) ZAINAB (test code = ZAINAB) Toxic Range: ? Greater than 1.2 mmol/L Lab Interpretation (test Abnormal code = 15884-8) [facility]2023-06-14 17:27:33 Test Item Value Reference Range Interpretation Comments [place] (test code = 0.3 mmol/L 0.6-1.2 L 1437241320) ZAINAB (test code = ZAINAB) Toxic Range: ? Greater than 1.2 mmol/L Lab Interpretation (test Abnormal code = 80945-2) [facility] W/AUTO DIFF WITH [id number] 06:12:05 Test Item Value Reference Range Interpretation [...] RBCS 0.00 K/UL 0.00-0.11 (test code = 12546) RETICULOCYTE WITH [id number] 06:12:05 Test Item Value Reference Range Interpretation Comments RETICULOCYTE COUNT 2.50 % 0.80-2.40 H (test code = 1018) ABSOLUTE RETICULOCYTE 103.3 K/UL 32.0-105.[address] has important (test code = 47471) patholog y staff changes effecti ve 04/12/2022. New pathology staff will provide uninter rupted, excellent patie nt care and clinical consultation. S ee URL: [email or web address]. UNLES S OTHERWISE INDIC ATED, ALL TESTING PER FORMED AT CLINICAL [facility] [employer], [facility]. [address] [place] [id number] [place] [address] ELROY DIRECTOR: Mary DAILY ROSEMARY NUMBER [id number] CAP ACCREDITATION N O. [id number] YAZMIN NON-REFLEX TO [id number] 05:55:49 Test Item Value Reference Range Interpretation Comments ANTI-NUCLEAR NEGATIVE NEGATIVE METHODOLOGY IS INDIRECT ANTIBODIES (test IMMUNOFLUOR ESCENT ASSAY code = 3506) (IFA) WITH ADELE N EPITHELIAL (HEP -2) CELL LINE SUBSTRATE. FOLATE, [id number] 12:42:51 Test Item Value Reference Range Interpretation [...] . . . NG/ML >1504 TSH, THIRD [id number] 11:05:54 Test Item Value Reference Range Interpretation Comments TSH, THIRD GENERATION (test code 1.310 UIU/ML 0.400-4.100 = 2821) VITAMIN [id number] 11:05:54 Test Item Value Reference Range Interpretation Comments VITAMIN B-12 (test code = 2840) 436 PG/ML 200-950 VITAMIN D, 25 [id number] 11:03:45 Test Item Value Reference Range Interpretation Comments VITAMIN D, 25 13 NG/ML SEE BELOW L EFFECTIVE 02/20/2022, [place] (test code PLEASE NOTE NE W METHODOLOGY = 4188) IS ELECTROCH EMILUMINESCENCE BINDING ASSAY. NOTE: 25-HYDROXYVITAM IN D ASSAY INCLUDES 25-HYD ROXYVITAMIN D2 AND D3. I NTERPRETIVE RANGES PED IATRIC (<17 YEARS) . . . . . . . . . . . NG/ML 20-100ADU LT: INSUFFICIENT . . . . . . . . . . . . . . NG/ML <20 SUBOP TIMAL . . . . . . . . . . . . . . . NG/ML 20-29 OPTIMAL . . . . . . . . . . . . . . . . . NG/ML 30-100 [facility] has important p athology staff changes effecti ve 04/12/2022. New patholo gy staff will provide uninter rupted, excellent patie nt care and clinical consul tation. See URL: [email or web address]. UNLESS OTHERWIS E INDICATED, ALL TESTING PERFORM ED AT CLINICAL PATHOLOGY [facility], [facility]. [address] [place] [address] LABORATORY DIRE CTOR: Mary RUIZ ROSEMARY NUMBER [id number] [place]. [id number] URIC [id number] 05:28:57 Test Item Value Reference Range Interpretation Comments URIC ACID (test code = 2233) 6.7 MG/DL 2.7-6.1 H COMPREHENSIVE METABOLIC [id number] 05:28:57 Test Item Value Reference Range Interpretation Comments GLUCOSE (test code = 103 MG/DL 70-99 H 2216) BUN (test code = 9 MG/DL 6-20 2207) CREATININE (test 0.72 MG/DL 0.60-1.30 code = 2214) eGFR (2020 CKD-EPI) 106 >60 (test code = 98960) ML/MIN/1.73 CALC BUN/CREAT (test 13 RATIO 6-28 code = 2235) SODIUM (test code = 139 MEQ/L 057-077 3871) POTASSIUM (test code 4.5 MEQ/L 3.5-5.4 = 2227) CHLORIDE (test code 104 MEQ/L 95-107 = 2215) CARBON DIOXIDE (test 24 MEQ/L 19-31 code = 220) CALCIUM (test code = 9.5 MG/DL 8.5-10.5 2208) PROTEIN, TOTAL (test 6.5 G/DL 6.1-8.3 code = 222) ALBUMIN (test code = 4.4 G/DL 3.5-5.2 2200) CALC GLOBULIN (test 2.1 G/DL 1.9-3.7 code = 224) CALC A/G RATIO (test 2.1 RATIO 1.0-2.6 code = 223) BILIRUBIN, TOTAL <0.2 MG/DL See_Comment [Automated message] (test code = 2206) The syste m which generated this result transmit mehreen reference range : <=1.2. The refe rence range was not u sed to interpret th is result as normal/abnormal . ALKALINE PHOSPHATASE 129 U/L 40-115 H (test code = 2203) AST (test code = 21 U/L 9-40 2217) ALT (test code = 26 U/L 5-40 2218) LIPID [id number] 05:28:57 Test Item Value Reference Range Interpretation [...] MOREINFORMATION , SEE CLIENT ANNOUNCE MENT AT [email or web address] LDL/HDL 3.04 RATIO <3.22 (test code = 2238) HEMOGLOBIN [id number] 02:54:46 Test Item Value Reference Range Interpretation Comments HEMOGLOBIN A1c (test code = 37688) 5.6 % 4.2-5.6 CBC W/AUTO DIFF WITH [id number] 01:58:18 Test Item Value Reference Range Interpretation [...] RBCS 0.00 K/UL 0.00-0.11 (test code = 44053) [id number] 20:05:22 Test Item Value Reference Range Interpretation Comments [place] (test code = 1.1 mmol/L 0.6-1.2 6774002050) ZAINAB (test code = ZAINAB) Toxic Range: ? Greater than 1.2 mmol/L Lab Interpretation (test Normal code = 24251-7) [facility]2023-01-04 20:05:22 Test Item Value Reference Range Interpretation Comments [place] (test code = 1.1 mmol/L 0.6-1.2 0061221876) ZAINAB (test code = ZAINAB) Toxic Range: ? Greater than 1.2 mmol/L Lab Interpretation (test Normal code = 32537-7) [facility]2023-01-04 20:05:22 Test Item Value Reference Range Interpretation Comments [place] (test code = 1.1 mmol/L 0.6-1.2 2891086096) ZAINAB (test code = ZAINAB) Toxic Range: ? Greater than 1.2 mmol/L Lab Interpretation (test Normal code = 01625-7) [facility]2023-01-04 20:05:22 Test Item Value Reference Range Interpretation Comments [place] (test code = 1.1 mmol/L 0.6-1.2 9310849227) ZAINAB (test code = ZAINAB) Toxic Range: ? Greater than 1.2 mmol/L Lab Interpretation (test Normal code = 35007-5) [facility]2023-01-04 20:05:22 Test Item Value Reference Range Interpretation Comments [place] (test code = 1.1 mmol/L 0.6-1.2 2610832041) ZAINAB (test code = ZAINAB) Toxic Range: ? Greater than 1.2 mmol/L Lab Interpretation (test Normal code = 12477-6) [facility]2023-01-04 20:05:22 Test Item Value Reference Range Interpretation Comments [place] (test code = 1.1 mmol/L 0.6-1.2 9580077071) ZAINAB (test code = ZAINAB) Toxic Range: ? Greater than 1.2 mmol/L Lab Interpretation (test Normal code = 48090-1) [facility]2023-01-04 20:05:22 Test Item Value Reference Range Interpretation Comments [place] (test code = 1.1 mmol/L 0.6-1.2 6457232868) ZAINAB (test code = ZAINAB) Toxic Range: ? Greater than 1.2 mmol/L Lab Interpretation (test Normal code = 09860-0) [facility]2023-01-04 20:05:22 Test Item Value Reference Range Interpretation Comments [place] (test code = 1.1 mmol/L 0.6-1.2 [id number]) ZAINAB (test code = ZAINAB) Toxic Range: ? Greater than 1.2 mmol/L Lab Interpretation (test Normal code = 30738-8) [facility]2023-01-04 20:05:22 Test Item Value Reference Range Interpretation Comments [place] (test code = 1.1 mmol/L 0.6-1.2 [id number]) ZAINAB (test code = ZAINAB) Toxic Range: ? Greater than 1.2 mmol/L Lab Interpretation (test Normal code = 23195-4) [facility]2023-01-04 20:05:22 Test Item Value Reference Range Interpretation Comments [place] (test code = 1.1 mmol/L 0.6-1.2 [id number]) ZAIANB (test code = ZAINAB) Toxic Range: ? Greater than 1.2 mmol/L Lab Interpretation (test Normal code = 68996-6) [facility]2018-07-20 07:27:00 Test Item Value [...] VERY HIGH.........>/ = 190 mg/dL Comments to Binding Machine Operator: ADD TO AM LABSLIPID PROFILE (CORONARY RISK)2018-07-20 [...] MG/DL 0-99 code = LDL) Comments to Binding Machine Operator: ADD TO AM LABSPROTHROMBIN [id number] 06:24:00 Test Item Value Reference Range Interpretation Comments PROTHROMBIN TIME 9.9 SECONDS 9.6-11.6 N PATIENT (test code = PTP) INTERNATIONAL NORMAL 0.9 0.8-1.1 N The INR is to be RATIO (test code = INR) used only for monitoring oral anticoagulantth erap y. INDICATION INR VALUE ---- ---- ---- -------1. Prophylaxis, de ep venous thrombos is, including high risk surgery. 2.0 - 3.0 2. Prophylaxis, deep venous thrombosis, hip surgery, treatm ent for deep venous thrombosis or pulmonary prevention of systemic emboli sm in patients wit h valvular heart disease, atrial fibrillation, tissue heart va lve, or acute myocar dial infarction. 2.0 - 3.0 3. Machinery Dismantler al prosthesis hear t valves, recurre nt systemic emboli sm. 3.0 - 4.5 Comments to Binding Machine Operator: NURSE WILL BRING SPECIMEN TO LABPTT ACTIVATED 2018-07-20 06:24:00 Test Item Value Reference Range Interpretation Comments PTT ACTIVATED (test code = APTT) 29.3 SECONDS 22.0-33.0 N Comments to Binding Machine Operator: NURSE [facility] 2018-07-20 06:13:00 Test Item [...] 9.6 MG/DL 8.4-10.2 N CA) Comments to Binding Machine Operator: NURSE WILL BRING SPECIMEN TO LAB Comments to Binding Machine Operator: NURSE WILL BRING SPECIMEN TO [id number] 06:13:00 Test Item Value Reference Range Interpretation Comments MAGNESIUM (test code = MAG) 2.2 MG/DL 1.6-2.3 N Comments to Binding Machine Operator: NURSE WILL BRING SPECIMEN TO LAB Comments to Binding Machine Operator: NURSE WILL BRING SPECIMEN TO LABCBC W/AUTO [id number] 06:02:00 Test Item Value Reference Range Interpretation [...] NRBC#) Notes Date/Time Note Provider Source 2022-10-19 08:30:00 5613-51-77O21:30:00Formatting of Samantha yu [facility] this note is different from the original.Images from the original note were not included.Venipuncture collection performed by clean technique on the left anticubitus. Total of 1 attempts were made. Slight pressure and a bandage/dressing were applied to the site(s). The patient experienced no complications. The following specimens were processed according to instructions and sent to [facility] laboratories LT BLUE Lt Green SST 2 RED LAV PPT DK GREEN (L) DK GREEN (S)/// Fibrosure set BLUE,SST & LAV SUE DK BLUE (K2) DK BLUE (S) ACD RST BLOOD CULTURE NIPT or ALLOSURE VERIFYNOW URINE URINE CULTURE APTIMA URINE STOOL Monogram Z plasma preservative tube (call lab for tube)ARUP Vasoactive Intestinal Peptide (call lab for tube)ARUP 23404-5Gycdt QzxtIL2292-58-13X41:36:26Nurse NoteTXT1.2.840.134488.1.13.104.2.7.2 .132716|[id number] for patient rbko40509-0Mnysn [id number] L [address] Km[id number] RFMLHZTYZXEKNPPKESWEKK0253-40-57W87: 36:261.2.840.686822.1.72.3.15|1.2.84 0.333713.1.13.104.2.7.2.727879_18933 55152 2022-10-05 10:15:00 7908-54-98M89:15:00Formatting of [facility] this note is different from the original.Images from the original note were not included.Venipuncture collection performed by clean technique on the left anticubitus. Total of 1 attempts were made. Slight pressure and a bandage/dressing were applied to the site(s). The patient experienced no complications. The following specimens were processed according to instructions and sent to [facility] laboratories per lab order on 10/05/2022: LT BLUE SST 1 RED LAV 2 PPT DK GREEN (LiHep) DK GREEN (SodH) SUE DK BLUE (K2) DK BLUE (S) ACD Blood Culture NIPT/NTD 19001-0Gxvsq RuuyQQ3132-41-21W86:17:14Nurse NoteTXT1.2.840.381029.1.13.104.2.7.2 .445826|[id number] for patient tuan04826-0Ugxke NoteLNDARIELA[address] Nw[id number] ZMVLJZVXLSZWBTZLSNUSUA1299-88-45G65: 17:141.2.840.272932.1.72.3.15|1.2.84 0.828399.1.13.104.2.7.2.727879_18822 75738 2018-07-20 06:55:00 PGlpwgeennh481526515518-65-66C68:55: [facility] [id number] [place] [address] PATIENT NAME: SHIVANI SCHULER ADMIT DATE: 07/20/18ACCOUNT NO: [id number] ROOM NO: AGE: 43 REPORT TYPE: CARDIAC CATHETERIZATION REPORT SEX: F ADMITTING PHYSICIAN: ATTENDING PHYSICIAN:Thea Harper MD PROCEDURE DATE: 07/20/2018 CORE MAKER HELPER: Thea Harper MD TITLE OF THE PROCEDURE: Left heart catheterization, selective bilateral renalangiograms. INDICATION FOR THE PROCEDURE: Chest pain, multiple cardiovascular risk factors,abnormal stress test, uncontrolled hypertension, rule out renal artery stenosis. ESTIMATED BLOOD LOSS: Minimal. COMPLICATIONS: None. CONTRAST: 80 mL. ANESTHESIA: Conscious sedation with Versed and fentanyl and 1% lidocaine forlocal anesthesia. 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 The recommendation is medical therapy. PROCEDURE IN DETAIL: After informed consent, the patient was brought to thecardiac catheterization lab in a stable fasting nonsedated state. She wasprepped and draped in the usual sterile fashion. After conscious sedation, 1%lidocaine was administered to the right common femoral artery area for localanesthesia. A 6-Salvadorean sheath was placed in the right common femoral arteryusing standard techniques and fluoroscopy. After heparinization, left coronaryangiogram showed a very short left main, if any and JL3.5 had to be used tocannulate the left main. There was no angiographic disease of both the LAD andcircumflex. Right coronary angiogram showed no angiographic coronary arterydisease. It was a dominant vessel. Left ventricular angiogram showed anelevated left ventricular end-diastolic pressure of 23, normal left ventricularejection fraction of 60%. No wall motion abnormalities and no significantaortic valve gradient. The right groin was sealed using Vascade. Before that,selective bilateral renal angiogram was carried out that showed fibromusculardysplasia of the right renal artery that is not obstructive. There was spasm. The right common femoral insertion site as there was also a spasm previouslyfrom the catheter on the origin of the circumflex. The patient tolerated theprocedure well. There were no complications. [place] be discharged later on today on medical therapy PATIENT NAME: SHIVANI SCHULER and risk factor modification. Dictated By: Thea Harper MD WT: CATH:ADRIANA/KIAN/RIGOBERTODD: 07/20/2018 06:55:03DT: 07/20/2018 07:17:37Conf#: [id number]/DID#: [id number] Authenticated by Thea Harper MD On 07/20/2018 08:15:22 AM at 0815 PATIENT NAME: SHIVANI SCHULER Pjwc1336-14-49M40:17:00Z.[id number] -0036AVAvailable for patient fxuzBOYOGJUSPPASBV5894-51-32K53:15:5 6 2018-07-20 06:06:00 ZTfyzwwajva009235805668-54-32D02:06: [facility] [id number] [place] [address] PATIENT NAME: SHIVANI SCHULER ADMIT DATE: 07/20/18ACCOUNT NO: [id number] ROOM NO: AGE: 43 REPORT TYPE: ELECTROCARDIOGRAM SEX: F ADMITTING PHYSICIAN: ATTENDING PHYSICIAN:Thea Harper MD Order:[id number] Reason : CAD Test Date/Time Stamp:SunJul 20 2018 06:06:58Blood Pressure : / mmHGVent. Rate : 069 BPM Atrial Rate : 069 BPM P-R Int : 154 ms QRS Dur : 098 ms QT Int : 446 ms P-R-T Axes : 043 046 048 degrees QTc Int : 477 ms Normal sinus rhythmNormal ECGNo previous ECGs availableConfirmed by THEA HARPER ([id number]) on 07/20/2018 9:21:42 AM Referred By: Thea Harper Confirmed by:THEA HARPER at 0921 PATIENT NAME: SHIVANI SCHULER .[facility] [id number] for patient drztHPASAUVDEJIXUF2044-37-65X48:22:0 4 2018-07-19 18:55:00 [id number]:55: [facility] [id number] [place] [address] PATIENT NAME: SHIVANI SCHULER ADMIT DATE: 07/20/18ACCOUNT NO: [id number] ROOM NO: AGE: 43 REPORT TYPE: HISTORY AND PHYSICAL SEX: F ADMITTING PHYSICIAN: ATTENDING PHYSICIAN:Thea Harper MD ADMISSION DATE: 07/20/2018 CORE MAKER HELPER: Thea Harper MD REASON FOR ADMISSION: Chest pain, dyspnea sounds like new onset angina,abnormal stress test for cardiac catheterization and possible revascularization. HISTORY OF PRESENT ILLNESS: Shivani is a 43-year-old lady with multiplecardiovascular risk factors, who was recently evaluated for symptoms of chestpains, dyspnea and history of syncope. Noninvasive workup was carried out withan echocardiogram, which was normal. She had a stress test. She was able toexercise for a total of about 6 minutes. She had a positive stress test with STdepression. Given this information and the patient's risk factors, she is herefor cardiac catheterization to assess for possible revascularization. There isno history of congestive heart failure. She has history of dizziness andhistory of syncope as well as edema. PAST MEDICAL HISTORY: Remarkable for hypertension, anxiety, depression, sleepapnea, gout, and allergies. PAST SURGICAL HISTORY: Cholecystectomy. ALLERGIES: SULFA CAUSES RASH. MEDICATIONS: Duloxetine 60 mg daily, quetiapine fumarate 50 mg daily,allopurinol 100 mg daily, citalopram 10 mg daily, propranolol 80 mg daily,losartan 100 mg daily, furosemide 40 mg as needed. SOCIAL HISTORY: The patient does not smoke or use street drugs or drinksalcohol. FAMILY HISTORY: Positive for atherosclerotic cardiovascular disease. REVIEW OF SYSTEMS: Remarkable for the above in addition to fatigue, dizziness,headaches, night sweats, allergies, dry mouth, weakness, edema, nausea, historyof gout, difficulty balancing, anxiety and depression. No acute GI or GUsymptoms. No TIAs or strokes. PHYSICAL EXAMINATION:GENERAL: A pleasant middle-aged lady in no acute distress.VITAL SIGNS: Blood pressure 141/85, pulse 77 per minute and regular,respiratory rate 16 unlabored, temperature afebrile. PATIENT NAME: SHIVANI SCHULER HEENT: Head, atraumatic and normocephalic. Eyes and ENT examination withinnormal for age.NECK: Supple. No jugular venous distention, bruits, or lymphadenopathy. Normal upstroke.LUNGS: Clear and resonant.HEART: Regular rate and rhythm. No murmurs or gallops.ABDOMEN: Soft. No tenderness, no organomegaly, no masses or bruits.EXTREMITIES: 1+ edema. 2+ distal pulses. No cyanosis or clubbing.NEUROLOGIC: Alert and oriented x3. Examination appears to be nonfocal. LABORATORY DATA: Pending. Noninvasive cardiovascular workup enclosed. IMPRESSION AND PLAN: This is a 43-year-old lady with some cardiovascular riskfactors symptoms of chest pains, abnormal stress test. She continues tocomplain of symptoms despite medical therapy. She may have significant coronaryartery disease. The recommendation is to proceed with left heartcatheterization and possible revascularization. The risks and benefits of theplanned procedure were discussed in detail with the patient and she is willingto proceed. The patient was offered to do a stress nuclear before the heartcatheterization, but she was convinced that she will eventually need a cardiaccatheterization, so she decided to proceed directly with catheterization to saveany further costs. This was all discussed in detail with the patient. Dictated By: Thea Harper MD WT: HP:TRAVIS/KIAN/RIGOBERTODD: 07/19/2018 18:55:38DT: 07/19/2018 19:52:26Conf#: [id number]/DID#: [id number] by Thea Harper MD On 07/25/2018 07:20:46 AM at 0721 PATIENT NAME: SHIVANI SCHULER and physical gjmprkplzvn5533-60-25Y33:52:00Z.[facility]2 [id number] for patient ntrvKXQKOBYZASAXME5566-42-68E44:21:2 2"
[2023-01-03 09:38] LABS: Specific Gravity 1.012 (1.005-1.030)
[2023-01-03 09:41] LABS: Absolute Lymphocytes (CBC) 1.4 K/uL (0.7-4.9); Hematocrit 28.1 % (36.0-45.0); Lymphocytes % 18.7 % (15.3-44.8); MCV 67.3 fL (80-100); MPV 8.2 fL (7.6-11.3); Platelets 283 thou/uL (152-406); RBC Red Blood Cell Count 4.18 M/uL (3.86-4.86)
[2023-01-03 09:42] LABS: Specific Gravity 1.012 (1.005-1.030); Urine Bacteria <20 /HPF (<20); Urine Bilirubin NEGATIVE (Negative); Urine Blood Negative (Negative); Urine Clarity Turbid (Clear); Urine Color Light-Yellow (Yellow); Urine Glucose NEGATIVE (Negative); Urine Mucus Slight /HPF (None Seen); Urine Protein NEGATIVE (Negative); Urine RBC <5 /HPF (None Seen); Urine Urobilinogen Normal (Normal); Urine pH 6.5 (5.0-7.0)
[2023-01-03] MEDS ORDERED: NA CHLORIDE 0.9% 1,000 ML ONE (09:51)
[2023-01-03] MEDS ORDERED: KETOROLAC 30 MG/ML INJ ONE (09:51)
[2023-01-03 09:59] LABS: Albumin 3.6 g/dL (3.4-5.0); Bilirubin Total 0.3 mg/dL (0.2-1.0); Potassium 4.1 mEq/L (3.5-5.1); Protein, Total 6.9 g/dL (6.4-8.2)
--- NOTE | 2023-01-03 10:15 | RAD REPORT ---
EXAM DESCRIPTION: SEAN FLORES - 01/03/2023 9:25 am CLINICAL HISTORY: PAIN COMPARISON: No comparisons TECHNIQUE: Left hand, 3 views. FINDINGS: No fracture is identified. There is no dislocation or periosteal reaction noted. Joint alignment is maintained. No foreign body or other soft tissue abnormality. IMPRESSION: Negative left hand examination.
[2023-01-03 10:49] LABS: White Blood Cell Scan OK (OK)
[2023-01-03 10:50] LABS: Anisocytosis 1+; Blood Morphology Comment NOTED (NOT SEEN); Hypochromasia 1+; Platelet Estimate ADEQ; Platelets, Giant FEW PRESENT
--- NOTE | 2023-01-03 11:14 | RAD REPORT ---
EXAM DESCRIPTION: CT - Abdomen Pelvis W Contrast - 01/03/2023 9:42 am CLINICAL HISTORY: ABD PAIN COMPARISON: Abdomen Pelvis W Contrast dated 10/10/2021; Abdomen Pelvis W Contrast dated 07/12/2021 ; Abdomen Pelvis W Contrast dated 11/26/2020 TECHNIQUE: Thin cut axial CT imaging of the abdomen and pelvis was performed following intravenous a dministration of 100 mL Isovue 300. Multiplanar reformats were generated and reviewed. All CT scans are performed using dose optimization technique as appropriate and may include automated exposure control or mA/KV adjustment according to patient size. FINDINGS: No suspicious findings in the lung bases. The liver, spleen, adrenal glands, and pancreas show no suspicious findings. Gallbladder was surgical ly removed. Symmetric renal function is seen with no hydronephrosis or suspicious renal mass. No dilated bowel loops or bowel wall thickening. No free air, free fluid or inflammatory stranding. N o hernia, mass or bulky lymphadenopathy. The urinary bladder is decompressed limiting evaluation. Non specific fluid seen in the endometrial cavity. No suspicious bony findings. IMPRESSION: No acute intra-abdominal process. Incidental findings as above.
--- NOTE | 2023-01-03 11:23 | EDPHYS ---
Physician Documentation [facility] Name: Shivani Lagunas Age: 47 yrs Sex: Female : 1975 Arrival Date: 01/03/2023 Time: 08:46 Bed 16 Private MD: ED Physician Jean Carlos Andrews HPI: 01/03 09:15 This 47 yrs old Female presents to ER via Ambulatory with complaints of sb4 abdominal pain. 09:15 The patient presents with abdominal pain right lower quadrant. Onset: The sb4 symptoms/episode began/occurred yesterday. The symptoms radiate to right back. Associated signs and symptoms: Pertinent positives: diarrhea, nausea, Pertinent negatives: fever, hematuria. The patient has experienced similar episodes in the past, a few times, but today's symptoms are worse, more painful. The patient has not recently seen a physician. reports intermittent RLQ pain that radiates to her back. feels like "a bubble" began yesterday. has had 2 episodes of watery diarrhea. also reports left hand pain, states she fell on it a few days ago and feels like the bones are flapping. Historical: - Allergies: 09:04 Sulfa (Sulfonamide Antibiotics); iw - PMHx: 09:04 Bipolar disorder; Hypertensive disorder; Schizophrenia; iw - PSHx: 09:04 Cholecystectomy; section; iw - Immunization history:: Adult Immunizations unknown. - Social history:: Smoking status: Patient denies any tobacco usage or history of. ROS: 09:15 Constitutional: Negative for fever, chills, and weight loss, sb4 09:15 Abdomen/GI: Positive for abdominal pain, nausea, diarrhea, 09:15 MS/extremity: Positive for pain, of the left hand, 09:15 All other systems are negative, Exam: 09:15 Constitutional: This is a well developed, well nourished patient who is awake, alert, sb4 and in no acute distress. Head/Face: Normocephalic, atraumatic. Eyes: Extra-ocular motions intact. Periorbital areas with no swelling, redness, or edema. ENT: Mucous membranes moist. Cardiovascular: Regular rate and rhythm with a normal S1 and S2. Respiratory: Lungs have equal breath sounds bilaterally, clear to auscultation and percussion. No rales, rhonchi or wheezes noted. No increased work of breathing, no retractions or nasal flaring. Skin: Warm, dry with normal turgor. Normal color with no rashes, no lesions, and no evidence of cellulitis. Neuro: Awake and alert, GCS 15, oriented to person, place, time, and situation. Motor strength 5/5 in all extremities. Sensory grossly intact. 09:15 Abdomen/GI: Inspection: abdomen appears normal, obese Bowel sounds: normal, Palpation: soft, mild abdominal tenderness, in the right lower quadrant, 09:15 Musculoskeletal/extremity: tenderness fifth metacarpal of left hand. Vital Signs: 09:04 BP 116 / 57; Pulse 70; Resp 16; Temp 98.4; Pulse Ox 100% on R/A; Weight 99.79 kg; iw Height 5 ft. 6 in. ; Pain 8/10; 09:30 BP 115 / 51; Pulse 66; Resp 16; Temp 98; Pulse Ox 100% ; ko1 11:21 BP 112 / 75; Pulse 61; Resp 16; Pulse Ox 99% ; ko1 09:04 Body Mass Index 35.51 (99.79 kg, 167.64 cm) iw 09:04 Pain Scale: Adult iw MDM: 08:51 Patient medically screened. sb4 09:19 Differential diagnosis: appendicitis, diverticulitis, non-specific abd pain, sb4 Pyelonephritis, Ureterolithiasis, urinary tract infection, mesenteric adenitis, constipation, colitis, ovarian cyst. 09:22 Differential diagnosis: ectopic . sb4 11:21 Data reviewed: vital signs, nurses notes, lab test result(s), radiologic studies, and sb4 as a result, I will discharge patient. Care significantly affected by the following chronic conditions: Hypertension. Counseling: I had a detailed discussion with the patient and/or guardian regarding the historical points, exam findings, and any diagnostic results supporting the discharge/admit diagnosis, lab results, radiology results, to return to the emergency department if symptoms worsen or persist or if there are any questions or concerns that arise at home. 11:21 Independent interpretation of the following test(s) in the Emergency Department CT sb4 Scan: My interpretation is my interpretation of the CT images are moderate stool burden RLQ. 01/03 09:11 Order name: CBC with Diff; Complete Time: 10:50 sb4 01/03 09:11 Order name: CMP; Complete Time: 10:00 sb4 01/03 09:11 Order name: Lipase; Complete Time: 10:00 sb4 01/03 09:11 Order name: Test, Urine; Complete Time: 09:39 sb4 01/03 09:11 Order name: UAM; Complete Time: 09:43 sb4 01/03 10:50 Order name: CBC Smear Scan; Complete Time: 10:50 EDMS 01/03 09:11 Order name: CT Abd/Pelvis - IV Contrast Only; Complete Time: 11:16 sb4 01/03 09:11 Order name: Hand Left 3 View XRAY; Complete Time: 10:18 sb4 01/03 09:11 Order name: IV Saline Lock; Complete Time: 09:35 sb4 01/03 09:11 Order name: Labs collected and sent; Complete Time: 09:35 sb4 Administered Medications: 09:48 Drug: NS 0.9% IV 1000 ml IV at 1 bolus Per protocol; 1000 mL bolus Route: IV; Rate: 1 ko1 bolus; Site: left antecubital; 09:48 Drug: TORadol - Ketorolac IVP 15 mg IVP once Route: IVP; Site: left antecubital; ko1 Disposition: 12:36 Co-signature as Attending Physician, Jean Carlos Andrews MD I reviewed the patient's care rn provided by the Advanced Practice Provider and agree with the diagnosis and treatment plan. Disposition Summary: 01/03/23 11:22 Discharge Ordered Notes: Location: Home sb4 Problem: new sb4 Symptoms: are unchanged sb4 Condition: Stable sb4 Diagnosis - Lower abdominal pain, unspecified sb4 - Constipation sb4 - Iron deficiency anemia, unspecified sb4 - Contusion of left hand sb4 Followup: sb4 - With: Emergency Department - When: As needed - Reason: Trouble breathing, Worsening of condition Discharge Instructions: - Discharge Summary Sheet sb4 - Constipation, Adult, Jnaa-ct-Ptiw sb4 - Hand Contusion, Qldp-yb-Drlj sb4 - Iron Deficiency Anemia, Adult, Ityj-jj-Potj sb4 Forms: - Medication Reconciliation Form sb4 - Thank You Letter sb4 - Antibiotic Education sb4 - Prescription Opioid Use sb4 - Patient Portal Instructions sb4 - Leadership Thank You Letter sb4 Signatures: Dispatcher [employer] Mayelin Regalado RN RN iw Nieto, Roman, MD MD rn Oliver Kimberly, RN RN sarah1 Ros Granado, PAJaydenC PA-C sb4
--- NOTE | 2023-01-03 11:23 | ER ---
Nurse's Notes [facility] Name: Shivani Lagunas Age: 47 yrs Sex: Female : 1975 Arrival Date: 01/03/2023 Time: 08:46 Bed 16 Private MD: Diagnosis: Lower abdominal pain, unspecified;Constipation;Iron deficiency anemia, unspecified;Contusion of left hand Presentation: 01/03 09:04 Chief complaint: Patient states: RLQ pain since yesterday. radiates to her back. iw Coronavirus screen: At this time, the client does not indicate any symptoms associated with coronavirus-19. Ebola Screen: Patient negative for fever greater than or equal to 101.5 degrees Fahrenheit, and additional compatible Ebola Virus Disease symptoms Patient denies exposure to infectious person. Patient denies travel to an Ebola-affected area in the 21 days before illness onset. No symptoms or risks identified at this time. Risk Assessment: Do you want to hurt yourself or someone else? Patient reports no desire to harm self or others. Onset of symptoms was January 02, 2023. 09:04 Method Of Arrival: Ambulatory iw 09:04 Acuity: ALICIA 3 iw 09:04 Initial Sepsis Screen: Does the patient meet any 2 criteria? No. Patient's initial iw sepsis screen is negative. Does the patient have a suspected source of infection? No. Patient's initial sepsis screen is negative. Historical: - Allergies: 09:04 Sulfa (Sulfonamide Antibiotics); iw - PMHx: 09:04 Bipolar disorder; Hypertensive disorder; Schizophrenia; iw - PSHx: 09:04 Cholecystectomy; section; iw - Immunization history:: Adult Immunizations unknown. - Social history:: Smoking status: Patient denies any tobacco usage or history of. Screenin:15 [facility] ED Fall Risk Assessment (Adult) History of falling in the last 3 months, ko1 including since admission No falls in past 3 months (0 pts) Confusion or Disorientation No (0 pts) Intoxicated or Sedated No (0 pts) Impaired Gait No (0 pts) Mobility Assist Device Used No (0 pt) Altered Elimination No (0 pt) Score/Fall Risk Level 0 - 2 = Low Risk Oriented to surroundings, Maintained a safe environment, Educated pt \T\ family on fall prevention, incl call for assistance when getting out of bed, Assessed \T\ reinforced patient's understanding of fall precautions, Provided non-skid footwear, Hourly rounding (assess needs \T\ fall precautionary measures) done, Used ambulatory aids as needed (educated on \T\ assisted with), Used gait belt as appropriate. Abuse screen: Denies threats or abuse. Denies injuries from another. Nutritional screening: No deficits noted. Tuberculosis screening: No symptoms or risk factors identified. Assessment: 09:15 General: Appears in no apparent distress. uncomfortable, Behavior is calm, cooperative, ko1 appropriate for age. Pain: Complains of pain in right lower quadrant and left hand. Neuro: No deficits noted. Cardiovascular: No deficits noted. Respiratory: No deficits noted. GI: No deficits noted. : No deficits noted. EENT: No deficits noted. Derm: No deficits noted. Musculoskeletal: Reports pain in right lower quadrant. Vital Signs: 09:04 BP 116 / 57; Pulse 70; Resp 16; Temp 98.4; Pulse Ox 100% on R/A; Weight 99.79 kg; iw Height 5 ft. 6 in. ; Pain 8/10; 09:30 BP 115 / 51; Pulse 66; Resp 16; Temp 98; Pulse Ox 100% ; ko1 11:21 BP 112 / 75; Pulse 61; Resp 16; Pulse Ox 99% ; ko1 09:04 Body Mass Index 35.51 (99.79 kg, 167.64 cm) iw 09:04 Pain Scale: Adult iw ED Course: 08:47 Patient arrived in ED. rg4 08:48 [facility] Granado [facility] sb4 08:48 Jean Carlos Andrews MD is Attending Physician. sb4 09:04 Triage completed. iw 09:05 Arm band placed on. iw 09:06 Kimberly Myles, AMANDA is Primary Nurse. ko1 09:15 Patient has correct armband on for positive identification. Bed in low position. Call ko1 light in reach. Side rails up X 1. Pulse ox on. NIBP on. Door closed. Noise minimized. Lights dimmed. Warm blanket given. 09:27 Hand Left 3 View XRAY In Process Unspecified. EDMS 09:28 UAM Sent. ko1 09:28 Test, Urine Sent. ko1 09:30 Inserted saline lock: 22 gauge in left antecubital area, using aseptic technique. Blood ko1 collected. 09:35 CBC with Diff Sent. ko1 09:35 CMP Sent. ko1 09:35 Lipase Sent. ko1 09:44 CT Abd/Pelvis - IV Contrast Only In Process Unspecified. EDMS 11:21 Provided Education on: na. ko1 11:21 No provider procedures requiring assistance completed. IV discontinued, intact, ko1 bleeding controlled, No redness/swelling at site. Pressure dressing applied. Administered Medications: :48 Drug: NS 0.9% IV 1000 ml IV at 1 bolus Per protocol; 1000 mL bolus Route: IV; Rate: 1 ko1 bolus; Site: left antecubital; :48 Drug: TORadol - Ketorolac IVP 15 mg IVP once Route: IVP; Site: left antecubital; ko1 Medication: : VIS not applicable for this client. ko1 Outcome: : Discharged to home ambulatory, ko1 11:21 Condition: stable 11: Discharge instructions given to patient, Instructed on discharge instructions, follow up and referral plans. Demonstrated understanding of instructions, follow-up care, medications, : Discharge ordered by MD. sb4 11:28 Patient left the ED. ko1 Signatures: Dispatcher [employer] Mayelin Regalado, AMANDA RN Lalita French4 Kimberly Myles RN RN ko1 Ros Granado PA-C PA-C sb4 Corrections: (The following items were deleted from the chart) 09:05 09:04 BP 116 / 57; Pulse 70bpm; Resp 16bpm; Pulse Ox 100% RA; Temp 98.4F; iw stanislav
[2023-01-03 12:01] VITALS: BP 112/75; O2SAT 99
[2023-01-03 12:03] VITALS: TEMP 98
== END 2023-01-03 11:28 | disposition home or self-care (01) ==
LOC: ER 08:46
DX: R10.31 Right lower quadrant pain (principal); K59.00 Constipation, unspecified; D50.9 Iron deficiency anemia, unspecified; S60.222A Contusion of left hand, initial encounter; Z88.2 Allergy status to sulfonamides
CPT/HCPCS: 85025; 81001; 36415; 81025; 83690; 80053; 74177; 73130; 96374; 99284; Q9967; J7030

== ENCOUNTER 2023-01-16 08:15 | Emergency (ER) | payer OTHER ==
--- OUTSIDE RECORDS SUMMARY | 2023-01-16 08:40 | XMS REPORT | Continuity of Care Document ---
:1975 Author Organization [facility] t Address [address] [place] [address] [place] [id number] Care Team Providers Name Role Phone Aneudy Hollowaydl Primary Care Physician JENNY ARRIAGA Attending Clinician Unavailable JENNY ARRIAGA Attending Clinician Unavailable Consuelo BAUER, Elidia Gamble Attending Clinician [phone] Doctor Unassigned, [place] Attending Clinician Unavailable [email or web address] Attending Clinician Unavailable ONEIDA MONTANA Attending Clinician Unavailable Dominic Keita MD Attending Clinician DOMINIC KEITA Attending Clinician Unavailable Hunter Cruz MD Attending Clinician Ting Grissom MD Attending Clinician RADIOLOGY Attending Clinician Unavailable DORA NEWMAN Attending Clinician Unavailable Dora Newman NP Attending Clinician Jewel Lindsey MD Attending Clinician [facility] Attending Clinician Unavailable JEWEL LINDSEY Attending Clinician [...] Clinician Unavailable ANGELA RAUSCH Attending Clinician Unavailable [email or web address] Admitting Clinician Unavailable DOMINIC KEITA Admitting Clinician Unavailable Dominic Keita MD Admitting Clinician Payers Payer Name Policy Type Policy Number Effective Date Expiration Date S [facility] MEDICAID SSI PENDING [...] Active Univers 1-06 ity of 00:00: [place] 00 [facility] Bipolar 1 Bipolar 1 Disease Active 2019-02 Uni vers disorder, disorder, 1-06 [place] depressed [place] [facility] [place] Gout Gout Disease Active Univers 7-06 ity of 00:00: [place] 00 [facility] Severe Severe Disease Active 1998-02 Univers headache headache 2-06 ity of 00:00: [place] 00 [facility] Insomnia Insomnia Disease Active 1989-02 Unive rs disorder disorder 0-06 ity of 00:00: [place] 00 [facility] Anxiety Anxiety Disease Active Univers 9-06 ity of 00:00: [place] 00 [facility] No known No known Disease Unive rs active active ity of problems problems [facility] Allergies, Adverse Reactions, Alerts Allergy Allergy [...] Comments Source Gender identity Universit y of [facility] Sexual orientation [facility] History of Social 2022-12-20 2022-12-20 Univers ity of function 00:00:00 00:00:00 [facility] Exposure to 2022-02-05 2022-02-15 Not sure University SARS-CoV-2 (event) 00:00:00 08:57:00 [facility] Tobacco use and 2021-08-24 2021-08-24 Smokeless Universit y of exposure 00:00:00 00:00:00 tobacco non-user [facility] Sex Assigned At [birth year] Universit y of 00:00:00 00:00:00 [facility] Smoking Status Start Date Stop Date Source Never smoked tobacco [facility] Medications Ordered Filled Start Stop Current Ordering Indication Dosage Frequency Signature Comments Components Source Medication Medication Date Date Medication? Clinician (SIG) Name Name busPIRone 2022-02 Yes [id number] 15mg Take 1 Un cristhian 15 mg 1-08 tablet by ity of tablet 00:00: mouth in [place] 00 the Medical morning Branch and 1 tablet in the evening. lithium 2022-02 Yes [id number] 900mg Take 2 Uni vers carbonate 1-08 tablets by [place]y of CR 450 mg 00:00[place] 00 bedtime. Medica l Branch traZODone 2022-02 Yes [id number] 50mg Take 1 U nivers 50 mg 1-08 tablet by ity of tablet 00:00: mouth at [place] 00 bedtime. Medical May cut Branch tablet in half. DULoxetine 2022-02 Yes [id number] 60mg Take 1 U nivers 60 mg 1-08 capsule by ity of capsule 00:00: mouth in [place] 00 the [facility] morning Branch and 1 capsule in the evening. lamoTRIgine 2022-02 Yes [id number] 100mg Take 1 Univers 100 mg 1-08 tablet by ity of tablet 00:00: mouth in [place] 00 the [facility] morning Branch and 1 tablet in the evening. clonazePAM 2022-02 Yes [id number] Take 1 U nivers 1 mg tablet 1-08 tablet by ity of 00:00: mouth once [place] 00 daily as Medical needed for Branch extreme anxiety. Attempt to minimize use. busPIRone 2022-02 Yes [id number] 15mg Take 1 Un cristhian 15 mg 1-08 tablet by ity of tablet 00:00: mouth in [place] 00 the Medical morning Branch and 1 tablet in the evening. lithium 2022-02 Yes [id number] 900mg Take 2 Uni vers carbonate 1-08 tablets by ity of CR 450 mg 00:00: [place] 00 bedtime. Medica l Branch traZODone 2022-02 Yes [id number] 50mg Take 1 U nivers 50 mg 1-08 tablet by ity of tablet 00:00: mouth at [place] [address] bedtime. Medical May cut Branch tablet in half. DULoxetine 2022-02 Yes [id number] 60mg Take 1 U nivers 60 mg 1-08 capsule by ity of capsule 00:00: mouth in [place] 00 the Medical morning Branch and 1 capsule in the evening. lamoTRIgine 2022-02 Yes [id number] 100mg Take 1 Univers 100 mg 1-08 tablet by ity of tablet 00:00: mouth in [place] 00 the Medical morning Branch and 1 tablet in the evening. clonazePAM 2022-02 Yes [id number] Take 1 U nivers 1 mg tablet 1-08 tablet by ity of 00:00: mouth once [place] 00 daily as Medical needed for Branch extreme anxiety. Attempt to minimize use. busPIRone 2022-02 Yes [id number] 15mg Take 1 Un cristhian 15 mg 1-08 tablet by ity of tablet 00:00: mouth in [place] 00 the Medical morning Branch and 1 tablet in the evening. lithium 2022-02 Yes 900mg Take 2 Uni vers carbonate 1-08 tablets by ity of CR 450 mg 00:00: mouth at [facility] s SR tablet 00 bedtime. Medica l Branch traZODone 2022-02 Yes [id number] 50mg Take 1 U nivers 50 mg 1-08 tablet by ity of tablet 00:00: mouth at [place] 00 bedtime. Medical May cut Branch tablet in half. DULoxetine 2022-02 Yes 60mg Take 1 U nivers 60 mg 1-08 capsule by ity of capsule 00:00: mouth in [place] 00 the Medical morning Branch and 1 capsule in the evening. lamoTRIgine 2022-02 Yes [id number] 100mg Take 1 Univers 100 mg 1-08 tablet by ity of tablet 00:00: mouth in [place] 00 the Medical morning Branch and 1 tablet in the evening. clonazePAM 2022-02 Yes [id number] Take 1 U nivers 1 mg tablet 1-08 tablet by ity of 00:00: mouth once [place] 00 daily as Medical needed for Branch extreme anxiety. Attempt to minimize use. busPIRone 2022-02 Yes [id number] 15mg Take 1 Un cristhian 15 mg 1-08 tablet by ity of tablet 00:00: mouth in [place] 00 the Medical morning Branch and 1 tablet in the evening. lithium 2022-02 Yes 900mg Take 2 Uni vers carbonate 1-08 tablets by ity of CR 450 mg 00:00: mouth at [facility] SR tablet 00 bedtime. Medica l Branch traZODone 2022-02 Yes [id number] 50mg Take 1 U nivers 50 mg 1-08 tablet by ity of tablet 00:00: mouth at [place] 00 bedtime. Medical May cut Branch tablet in half. DULoxetine 2022-02 Yes 60mg Take 1 U nivers 60 mg 1-08 capsule by ity of capsule 00:00: mouth in [place] 00 the Medical morning Branch and 1 capsule in the evening. lamoTRIgine 2022-02 Yes 100mg Take 1 Univers 100 mg 1-08 tablet by ity of tablet 00:00: mouth in [place] 00 the Medical morning Branch and 1 tablet in the evening. clonazePAM 2022-02 Yes [id number] Take 1 U nivers 1 mg tablet 1-08 tablet by ity of 00:00: mouth once [place] 00 daily as Medical needed for Branch extreme anxiety. Attempt to minimize use. busPIRone 2022-02 Yes [id number] 15mg Take 1 Un cristhian 15 mg 1-08 tablet by ity of tablet 00:00: mouth in [place] 00 the Medical morning Branch and 1 tablet in the evening. lithium 2022-02 Yes 900mg Take 2 Uni vers carbonate 1-08 tablets by ity of CR 450 mg 00:00: [place] 00 bedtime. Medica l Branch traZODone 2022-02 Yes [id number] 50mg Take 1 U nivers 50 mg 1-08 tablet by ity of tablet 00:00: mouth at [place] 00 bedtime. Medical May cut Branch tablet in half. DULoxetine 2022-02 Yes 60mg Take 1 U nivers 60 mg 1-08 capsule by ity of capsule 00:00: mouth in [place] 00 the Medical morning Branch and 1 capsule in the evening. lamoTRIgine 2022-02 Yes 100mg Take 1 Univers 100 mg 1-08 tablet by ity of tablet 00:00: mouth in [place] 00 the Medical morning Branch and 1 tablet in the evening. clonazePAM 2022-02 Yes [id number] Take 1 U nivers 1 mg tablet 1-08 tablet by ity of 00:00: mouth once [place] 00 daily as Medical needed for Branch extreme anxiety. Attempt to minimize use. busPIRone 2022-02 Yes [id number] 15mg Take 1 Un cristhian 15 mg 1-01 tablet by ity of tablet 00:00: mouth in [place] 00 the Medical morning Branch and 1 tablet in the evening. busPIRone 2022-02 Yes [id number] 15mg Take 1 Un cristhian 15 mg 1-01 tablet by ity of tablet 00:00: mouth in [place] 00 the Medical morning Branch and 1 tablet in the evening. busPIRone 2022-02 Yes [id number] 15mg Take 1 Un cristhian 15 mg -01 tablet by ity of tablet 00:00: mouth in [place] 00 the Medical morning Branch and 1 tablet in the evening. busPIRone 2022-02- No [id number] 15mg Take 1 U nivers 15 mg -12-20 tablet by ity of tablet 00:00: 00:00 mouth in [place] 00 :00 the Medical morning Branch and 1 tablet in the evening. busPIRone 2022-02- No [id number] 15mg Take 1 U nivers 15 mg 02-12 tablet by ity of tablet 00:00: 00:00 mouth in [place] 00 :00 the Medical morning Branch and 1 tablet in the evening. busPIRone 2022-02- No [id number] 15mg Take 1 U nivers 15 mg -12-20 tablet by ity of tablet 00:00: 00:00 mouth in [place] 00 :00 the Medical morning Branch and 1 tablet in the evening. lithium 2022-02 Yes [id number] 900mg Take 2 Uni vers carbonate 0-17 tablets by ity of CR 450 mg 00:00: [place] tablet 00 bedtime. Medica l Branch lithium 2022-02 Yes [id number] 900mg Take 2 Uni vers carbonate 0-17 tablets by ity of CR 450 mg 00:00: [place] tablet 00 bedtime. Medica l Branch traZODone 2022-02 Yes [id number] 50mg Take 1 U nivers 50 mg 0-17 tablet by ity of tablet 00:00: mouth at [place] 00 bedtime. Medical May cut Branch tablet in half. lithium 2022-02 Yes [id number] 900mg Take 2 Uni vers carbonate 0-17 tablets by ity of CR 450 mg 00:00: [place] 00 bedtime. Medica l Branch traZODone 2022-02 Yes [id number] 50mg Take 1 U nivers 50 mg 0-17 tablet by ity of tablet 00:00: mouth at [place] 00 bedtime. Medical May cut Branch tablet in half. lithium 2022-02 Yes 900mg Take 2 Uni vers carbonate 0-17 tablets by ity of CR 450 mg 00:00: [place] tablet 00 bedtime. Medica l Branch traZODone 2022-02 Yes [id number] 50mg Take 1 U nivers 50 mg 0-17 tablet by ity of tablet 00:00: mouth at [place] 00 bedtime. Medical May cut Branch tablet in half. lithium 2022-02 Yes 900mg Take 2 Uni vers carbonate 0-17 tablets by ity of CR 450 mg 00:00: [place] tablet 00 bedtime. Medica l Branch traZODone 2022-02 Yes [id number] 50mg Take 1 U nivers 50 mg 0-17 tablet by ity of tablet 00:00: mouth at [place] 00 bedtime. Medical May cut Branch tablet in half. lithium 2022-02 Yes 900mg Take 2 Uni vers carbonate 0-17 tablets by ity of CR 450 mg 00:00: [place] tablet 00 bedtime. Medica l Branch traZODone 2022-02 Yes [id number] 50mg Take 1 U nivers 50 mg 0-17 tablet by ity of tablet 00:00: mouth at [place] 00 bedtime. Medical May cut Branch tablet in half. lithium 2022-02 Yes 900mg Take 2 Uni vers carbonate 0-17 tablets by ity of CR 450 mg 00:00: [place] 00 bedtime. Medica l Branch traZODone 2022-02 Yes [id number] 50mg Take 1 U nivers 50 mg 0-17 tablet by ity of tablet 00:00: mouth at [place] 00 bedtime. Medical May cut Branch tablet in half. lithium 2022-02- No [id number] 900mg Take 2 Un cristhian carbonate 0-17 11-08 tablets by ity of CR 450 mg 00:00: 00:00 mouth at [place] tablet 00 :00 bedtime. Medica l Branch traZODone 2022-02- No [id number] 50mg Take 1 Univers 50 mg 0-17 11-08 tablet by ity of tablet 00:00: 00:00 mouth at [place] 00 :00 bedtime. Medical May cut Branch tablet in half. lithium 2022-02- No [id number] 900mg Take 2 Un cristhian carbonate 0-17 11-08 tablets by ity of CR 450 mg 00:00: 00:00 mouth at [place] tablet 00 :00 bedtime. Medica l Branch traZODone 2022-02- No [id number] 50mg Take 1 Univers 50 mg 0-17 11-08 tablet by ity of tablet 00:00: 00:00 mouth at [place] 00 :00 bedtime. Medical May cut Branch tablet in half. lithium 2022-02- No [id number] 900mg Take 2 Un cristhian carbonate 0-17 11-08 tablets by ity of CR 450 mg 00:00: 00:00 mouth at [place] tablet 00 :00 bedtime. Medica l Branch traZODone 2022-02- No [id number] 50mg Take 1 Univers 50 mg 0-17 11-08 tablet by ity of tablet 00:00: 00:00 mouth at [place] 00 :00 bedtime. Medical May cut Branch tablet in half. DULoxetine 2022-02 Yes [id number] 60mg Take 1 U nivers 60 mg 0-11 capsule by ity of capsule 00:00: mouth in [place] 00 the Medical morning Branch and 1 capsule in the evening. DULoxetine 2022-02 Yes [id number] 60mg Take 1 U nivers 60 mg 0-11 capsule by ity of capsule 00:00: mouth in [place] [address] the Medical morning Branch and 1 capsule in the evening. DULoxetine 2022-02 Yes [id number] 60mg Take 1 U nivers 60 mg 0-11 capsule by ity of capsule 00:00: mouth in [place] 00 the Medical morning Branch and 1 capsule in the evening. DULoxetine 2022-02 Yes [id number] 60mg Take 1 U nivers 60 mg 0-11 capsule by ity of capsule 00:00: mouth in [place] [address] the Medical morning Branch and 1 capsule in the evening. DULoxetine 2022-02 Yes [id number] 60mg Take 1 U nivers 60 mg 0-11 capsule by ity of capsule 00:00: mouth in [place] 00 the Medical morning Branch and 1 capsule in the evening. DULoxetine 2022-02 Yes [id number] 60mg Take 1 U nivers 60 mg 0-11 capsule by ity of capsule 00:00: mouth in [place] 00 the Medical morning Branch and 1 capsule in the evening. DULoxetine 2022-02 Yes [id number] 60mg Take 1 U nivers 60 mg 0-11 capsule by ity of capsule 00:00: mouth in [place] 00 the Medical morning Branch and 1 capsule in the evening. DULoxetine 2022-02 Yes [id number] 60mg Take 1 U nivers 60 mg 0-11 capsule by ity of capsule 00:00: mouth in [place] 00 the Medical morning Branch and 1 capsule in the evening. DULoxetine 2022-02 Yes [id number] 60mg Take 1 U nivers 60 mg 0-11 capsule by ity of capsule 00:00: mouth in [place] [address] the Medical morning Branch and 1 capsule in the evening. DULoxetine 2022-02 Yes [id number] 60mg Take 1 U nivers 60 mg 0-11 capsule by ity of capsule 00:00: mouth in [place] [address] the Medical morning Branch and 1 capsule in the evening. DULoxetine 2022-02 Yes [id number] 60mg Take 1 U nivers 60 mg 0-11 capsule by ity of capsule 00:00: mouth in [place] 00 the Medical morning Branch and 1 capsule in the evening. DULoxetine 2022-02 Yes [id number] 60mg Take 1 U nivers 60 mg 0-11 capsule by ity of capsule 00:00: mouth in [place] [address] the Medical morning Branch and 1 capsule in the evening. DULoxetine 2022-02 Yes [id number] 60mg Take 1 U nivers 60 mg 0-11 capsule by ity of capsule 00:00: mouth in [place] 00 the Medical morning Branch and 1 capsule in the evening. DULoxetine 2022-02 Yes [id number] 60mg Take 1 U nivers 60 mg 0-11 capsule by ity of capsule 00:00: mouth in [place] [address] the Medical morning Branch and 1 capsule in the evening. DULoxetine 2022-02- No [id number] 60mg Take 1 Univers 60 mg 0-11 11-08 capsule by ity of capsule 00:00: 00:00 mouth in [place] 00 :00 the Medical morning Branch and 1 capsule in the evening. DULoxetine 2022-02- No [id number] 60mg Take 1 Univers 60 mg 0-11 11-08 capsule by ity of capsule 00:00: 00:00 mouth in [place] 00 :00 the Medical morning Branch and 1 capsule in the evening. DULoxetine 2022-02- No [id number] 60mg Take 1 Univers 60 mg 0-11 11-08 capsule by ity of capsule 00:00: 00:00 mouth in [place] 00 :00 the Medical morning Branch and 1 capsule in the evening. simethicone 2022-02- No PRN, Unive rs (GAS RELIEF 0-02 10-02 Starting ity of (SIMETHICON 13:19: 16:49 on Mon [place] as E)) 40 00 :02 11/13/22 at Medical mg/0.6 mL 0819, Branch drops Until Sun11/13/22 at 1149, Routine, Intra-op simethicone 2022-02- No PRN, Unive rs (GAS RELIEF 0-02 10-02 Starting ity of (SIMETHICON 13:19: 16:49 on Mon [place] as E)) 40 00 :02 11/13/22 at Medical mg/0.6 mL 0819, Branch drops Until Sun11/13/22 at 1149, Routine, Intra-op losartan 2022-02 Yes 20mg Take 20 mg Uni vers potassium 0-02 by mouth. ity o f (LOSARTAN 09:49: [place] ORAL) [facility] propranolol 2022-02 Yes 80mg Take 1 Univ ers 80 mg 0-02 tablet by ity of tablet 09:49: mouth in [place] the Medical morning Branch and 1 tablet in the evening. allopurinoL 2022-02 Yes 100mg Take 1 Uni vers 100 mg 0-02 tablet by ity of tablet 09:49: mouth in [place] the Medical morning. Branch losartan 2022-02 Yes 20mg Take 20 mg Uni vers potassium 0-02 by mouth. ity o f (LOSARTAN 09:49: [place] ORAL) Medical [place] propranolol 2022-02 Yes 80mg Take 1 Univ ers 80 mg 0-02 tablet by ity of tablet 09:49: mouth in [place] 01 the Medical morning Branch and 1 tablet in the evening. allopurinoL 2022-02 Yes 100mg Take 1 Uni vers 100 mg 0-02 tablet by ity of tablet 09:49: mouth in [place] the Medical morning. Branch losartan 2022- Yes 20mg Take 20 mg Uni vers potassium 0-02 by mouth. ity o f (LOSARTAN 09:49: [place] ORAL) Medical Branch propranolol 2022- Yes 80mg Take 1 Univ ers 80 mg 0-02 tablet by ity of tablet 09:49: mouth in [place] the Medical morning Branch and 1 tablet in the evening. allopurinoL 2022- Yes 100mg Take 1 Uni vers 100 mg 0-02 tablet by ity of tablet 09:49: mouth in [place] the Medical morning. Branch losartan 2022- Yes 20mg Take 20 mg Uni vers potassium 0-02 by mouth. ity o f (LOSARTAN 09:49: [place] ORAL) Medical Branch propranolol 2022- Yes 80mg Take 1 Univ ers 80 mg 0-02 tablet by ity of tablet 09:49: mouth in [place] the Medical morning Branch and 1 tablet in the evening. allopurinoL 2022- Yes 100mg Take 1 Uni vers 100 mg 0-02 tablet by ity of tablet 09:49: mouth in [place] the Medical morning. Branch losartan 2022-02 Yes 20mg Take 20 mg Uni vers potassium 0-02 by mouth. ity o f (LOSARTAN 09:49: [place] ORAL) Medical Branch propranolol 2022- Yes 80mg Take 1 Univ ers 80 mg 0-02 tablet by ity of tablet 09:49: mouth in [place] the Medical morning Branch and 1 tablet in the evening. allopurinoL 2022- Yes 100mg Take 1 Uni vers 100 mg 0-02 tablet by ity of tablet 09:49: mouth in [place] the Medical morning. Branch losartan 2022- Yes 20mg Take 20 mg Uni vers potassium 0-02 by mouth. ity o f (LOSARTAN 09:49: [place] ORAL) Medical Branch propranolol 2022- Yes 80mg Take 1 Univ ers 80 mg 0-02 tablet by ity of tablet 09:49: mouth in [place] the Medical morning Branch and 1 tablet in the evening. allopurinoL 2022- Yes 100mg Take 1 Uni vers 100 mg 0-02 tablet by ity of tablet 09:49: mouth in [place] the Medical morning. Branch losartan 2022- Yes 20mg Take 20 mg Uni vers potassium 0-02 by mouth. ity o f (LOSARTAN 09:49: [place] ORAL) Medical Branch propranolol 2022- Yes 80mg Take 1 Univ ers 80 mg 0-02 tablet by ity of tablet 09:49: mouth in [place] the Medical morning Branch and 1 tablet in the evening. allopurinoL 2022-02 Yes 100mg Take 1 Uni vers 100 mg 0-02 tablet by ity of tablet 09:49: mouth in [place] the Medical morning. Branch losartan 2022-02 Yes 20mg Take 20 mg Uni vers potassium 0-02 by mouth. ity o f (LOSARTAN 09:49: [place] ORAL) Medical Branch propranolol 2022- Yes 80mg Take 1 Univ ers 80 mg 0-02 tablet by ity of tablet 09:49: mouth in [place] the Medical morning Branch and 1 tablet in the evening. allopurinoL 2022-02 Yes 100mg Take 1 Uni vers 100 mg 0-02 tablet by ity of tablet 09:49: mouth in [place] the Medical morning. Branch losartan 2022-02 Yes 20mg Take 20 mg Uni vers potassium 0-02 by mouth. ity o f (LOSARTAN 09:49: [place] ORAL) Medical Branch propranolol 2022- Yes 80mg Take 1 Univ ers 80 mg 0-02 tablet by ity of tablet 09:49: mouth in [place] the Medical morning Branch and 1 tablet in the evening. allopurinoL 2022-02 Yes 100mg Take 1 Uni vers 100 mg 0-02 tablet by ity of tablet 09:49: mouth in [place] the Medical morning. Branch losartan 2022- Yes 20mg Take 20 mg Uni vers potassium 0-02 by mouth. ity o f (LOSARTAN 09:49: [place] ORAL) Medical Branch propranolol 2022- Yes 80mg Take 1 Univ ers 80 mg 0-02 tablet by ity of tablet 09:49: mouth in [place] the Medical morning Branch and 1 tablet in the evening. allopurinoL 2022-02 Yes 100mg Take 1 Uni vers 100 mg 0-02 tablet by ity of tablet 09:49: mouth in [place] the Medical morning. Branch losartan 2022- Yes 20mg Take 20 mg Uni vers potassium 0-02 by mouth. ity o f (LOSARTAN 09:49: [place] ORAL) Medical Branch propranolol 2022- Yes 80mg Take 1 Univ ers 80 mg 0-02 tablet by ity of tablet 09:49: mouth in [place] the Medical morning Branch and 1 tablet in the evening. allopurinoL 2022- Yes 100mg Take 1 Uni vers 100 mg 0-02 tablet by ity of tablet 09:49: mouth in [place] the Medical morning. Branch losartan 2022- Yes 20mg Take 20 mg Uni vers potassium 0-02 by mouth. ity o f (LOSARTAN 09:49: [place] ORAL) Medical Branch propranolol 2022- Yes 80mg Take 1 Univ ers 80 mg 0-02 tablet by ity of tablet 09:49: mouth in [place] the Medical morning Branch and 1 tablet in the evening. allopurinoL 2022- Yes 100mg Take 1 Uni vers 100 mg 0-02 tablet by ity of tablet 09:49: mouth in [place] the Medical morning. Branch losartan 2022-02 Yes 20mg Take 20 mg Uni vers potassium 0-02 by mouth. ity o f (LOSARTAN 09:49: [place] ORAL) Medical Branch propranolol 2022- Yes 80mg Take 1 Univ ers 80 mg 0-02 tablet by ity of tablet 09:49: mouth in [place] the Medical morning Branch and 1 tablet in the evening. allopurinoL 2022-02 Yes 100mg Take 1 Uni vers 100 mg 0-02 tablet by ity of tablet 09:49: mouth in [place] the Medical morning. Branch losartan 2022-02 Yes 20mg Take 20 mg Uni vers potassium 0-02 by mouth. ity o f (LOSARTAN 09:49: [place] ORAL) Medical Branch propranolol 2022- Yes 80mg Take 1 Univ ers 80 mg 0-02 tablet by ity of tablet 09:49: mouth in [place] the Medical morning Branch and 1 tablet in the evening. allopurinoL 2022- Yes 100mg Take 1 Uni vers 100 mg 0-02 tablet by ity of tablet 09:49: mouth in [place] the Medical morning. Branch losartan 2022- Yes 20mg Take 20 mg Uni vers potassium 0-02 by mouth. ity o f (LOSARTAN 09:49: [place] ORAL) Medical Branch propranolol 2022- Yes 80mg Take 1 Univ ers 80 mg 0-02 tablet by ity of tablet 09:49: mouth in [place] the Medical morning Branch and 1 tablet in the evening. allopurinoL 2022- Yes 100mg Take 1 Uni vers 100 mg 0-02 tablet by ity of tablet 09:49: mouth in [place] the Medical morning. Branch losartan 2022- Yes 20mg Take 20 mg Uni vers potassium 0-02 by mouth. ity o f (LOSARTAN 09:49: [place] ORAL) Medical Branch propranolol 2022- Yes 80mg Take 1 Univ ers 80 mg 0-02 tablet by ity of tablet 09:49: mouth in [place] the Medical morning Branch and 1 tablet in the evening. allopurinoL 2022- Yes 100mg Take 1 Uni vers 100 mg 0-02 tablet by ity of tablet 09:49: mouth in [place] the Medical morning. Branch losartan 2022- Yes 20mg Take 20 mg Uni vers potassium 0-02 by mouth. ity o f (LOSARTAN 09:49: [place] ORAL) Medical Branch propranolol 2022- Yes 80mg Take 1 Univ ers 80 mg 0-02 tablet by ity of tablet 09:49: mouth in [place] the Medical morning Branch and 1 tablet in the evening. allopurinoL 2022- Yes 100mg Take 1 Uni vers 100 mg 0-02 tablet by ity of tablet 09:49: mouth in [place] the Medical morning. Branch losartan 2022- Yes 20mg Take 20 mg Uni vers potassium 0-02 by mouth. ity o f (LOSARTAN 09:49: [place] ORAL) Medical Branch propranolol 2022-1 Yes 80mg Take 1 Univ ers 80 mg 0-02 tablet by ity of tablet 09:49: mouth in [place] the Medical morning Branch and 1 tablet in the evening. allopurinoL 2022- Yes 100mg Take 1 Uni vers 100 mg 0-02 tablet by ity of tablet 09:49: mouth in [place] the Medical morning. Branch losartan 2022- Yes 20mg Take 20 mg Uni vers potassium 0-02 by mouth. ity o f (LOSARTAN 09:49: [place] ORAL) Medical Branch propranolol 2022- Yes 80mg Take 1 Univ ers 80 mg 0-02 tablet by ity of tablet 09:49: mouth in [place] the Medical morning Branch and 1 tablet in the evening. allopurinoL 2022- Yes 100mg Take 1 Uni vers 100 mg 0-02 tablet by ity of tablet 09:49: mouth in [place] the Medical morning. Branch losartan 2022-02 Yes 20mg Take 20 mg Uni vers potassium 0-02 by mouth. ity o f (LOSARTAN 09:49: [place] ORAL) Medical Branch propranolol 2022-02 Yes 80mg Take 1 Univ ers 80 mg 0-02 tablet by ity of tablet 09:49: mouth in [place] the Medical morning Branch and 1 tablet in the evening. allopurinoL 2022-02 Yes 100mg Take 1 Uni vers 100 mg 0-02 tablet by ity of tablet 09:49: mouth in [place] the Medical morning. Branch losartan 2022-02 Yes 20mg Take 20 mg [facility] vers potassium 0-02 by mouth. ity o f (LOSARTAN 09:49: [place] ORAL) Medical Branch propranolol 2022-02 Yes 80mg Take 1 [facility] ers 80 mg 0-02 tablet by ity of tablet 09:49: mouth in [place] the Medical morning Branch and 1 tablet in the evening. allopurinoL 2022-02 Yes 100mg Take 1 [facility] vers 100 mg 0-02 tablet by ity of tablet 09:49: mouth in [place] the Medical morning. Branch losartan 2022-02 Yes 20mg Take 20 mg [facility] vers potassium 0-02 by mouth. ity o f (LOSARTAN 09:49: [place] ORAL) Medical Branch propranolol 2022-02 Yes 80mg Take 1 [facility] ers 80 mg 0-02 tablet by ity of tablet 09:49: mouth in [place] the Medical morning Branch and 1 tablet in the evening. allopurinoL 2022-02 Yes 100mg Take 1 [facility] vers 100 mg 0-02 tablet by ity of tablet 09:49: mouth in [place] the Medical morning. Branch losartan 2022-02 Yes 20mg Take 20 mg [facility] vers potassium 0-02 by mouth. ity o f (LOSARTAN 09:49: [place] ORAL) Medical Branch propranolol 2022-02 Yes 80mg Take 1 [facility] ers 80 mg 0-02 tablet by ity of tablet 09:49: mouth in [place] the Medical morning Branch and 1 tablet in the evening. allopurinoL 2022-02 Yes 100mg Take 1 [facility] vers 100 mg 0-02 tablet by ity of tablet 09:49: mouth in [place] the Medical morning. Branch losartan 2022-02 Yes 20mg Take 20 mg [facility] vers potassium 0-02 by mouth. ity o f (LOSARTAN 09:49: [place] ORAL) Medical Branch propranolol 2022-02 Yes 80mg Take 1 [facility] ers 80 mg 0-02 tablet by ity of tablet 09:49: mouth in [place] the Medical morning Branch and 1 tablet in the evening. allopurinoL 2022- Yes 100mg Take 1 [facility] vers 100 mg 0-02 tablet by ity of tablet 09:49: mouth in [place] the Medical morning. Branch losartan 2022- Yes 20mg Take 20 mg [facility] vers potassium 0-02 by mouth. ity o f (LOSARTAN 09:49: [place] ORAL) Medical Branch propranolol 2022- Yes 80mg Take 1 [facility] ers 80 mg 0-02 tablet by ity of tablet 09:49: mouth in [place] the Medical morning Branch and 1 tablet in the evening. allopurinoL 2022- Yes 100mg Take 1 [facility] vers 100 mg 0-02 tablet by ity of tablet 09:49: mouth in [place] the Medical morning. Branch losartan 2022- Yes 20mg Take 20 mg [facility] vers potassium 0-02 by mouth. ity o f (LOSARTAN 09:49: [place] ORAL) Medical Branch propranolol 2022- Yes 80mg Take 1 [facility] ers 80 mg 0-02 tablet by ity of tablet 09:49: mouth in [place] the Medical morning Branch and 1 tablet in the evening. allopurinoL 2022- Yes 100mg Take 1 [facility] vers 100 mg 0-02 tablet by ity of tablet 09:49: mouth in [place] the Medical morning. Branch losartan 2022- Yes 20mg Take 20 mg [facility] vers potassium 0-02 by mouth. ity o f (LOSARTAN 09:49: [place] ORAL) Medical Branch propranolol 3- Yes 80mg Take 1 [facility] ers 80 mg 0-02 tablet by ity of tablet 09:49: mouth in [place] the Medical morning Branch and 1 tablet in the evening. allopurinoL 2022- Yes 100mg Take 1 [facility] vers 100 mg 0-02 tablet by ity of tablet 09:49: mouth in [place] the Medical morning. Branch losartan 2022- Yes 20mg Take 20 mg [facility] vers potassium 0-02 by mouth. ity o f (LOSARTAN 09:49: [place] [facility]AL) Medical Branch propranolol 2022-1 Yes 80mg Take 1 [facility] ers 80 mg 0-02 tablet by ity of tablet 09:49: mouth in [place] the Medical morning Branch and 1 tablet in the evening. allopurinoL 2022-02 Yes 100mg Take 1 [facility] vers 100 mg 0-02 tablet by ity of tablet 09:49: mouth in [place] the Medical morning. Branch losartan 2022-02 Yes 20mg Take 20 mg [facility] vers potassium 0-02 by mouth. ity o f (LOSARTAN 09:49: [place] ORAL) Medical Branch propranolol 2022-02 Yes 80mg Take 1 [facility] ers 80 mg 0-02 tablet by ity of tablet 09:49: mouth in [place] the Medical morning Branch and 1 tablet in the evening. allopurinoL 2022-02 Yes 100mg Take 1 [facility] vers 100 mg 0-02 tablet by ity of tablet 09:49: mouth in [place] the Medical morning. Branch losartan 2022-02 Yes 20mg Take 20 mg [facility] vers potassium 0-02 by mouth. ity o f (LOSARTAN 09:49: [place] ORAL) Medical Branch propranolol 2022-02 Yes 80mg Take 1 [facility] ers 80 mg 0-02 tablet by ity of tablet 09:49: mouth in [place] the Medical morning Branch and 1 tablet in the evening. allopurinoL 2022-02 Yes 100mg Take 1 [facility] vers 100 mg 0-02 tablet by ity of tablet 09:49: mouth in [place] the Medical morning. Branch losartan 2022-02 Yes 20mg Take 20 mg [facility] vers potassium 0-02 by mouth. ity o f (LOSARTAN 09:49: [place] ORAL) Medical Branch propranolol 2022-02 Yes 80mg Take 1 [facility] ers 80 mg 0-02 tablet by ity of tablet 09:49: mouth in [place] the Medical morning Branch and 1 tablet in the evening. allopurinoL 2022-02 Yes 100mg Take 1 [facility] vers 100 mg 0-02 tablet by ity of tablet 09:49: mouth in [place] the Medical morning. Branch sucralfate 2022-02- Yes 1g Take 1 Univ ers 1 gram 0-02 11-02 tablet by ity of tablet 00:00: 04:59 mouth in [place] 00 :00 the Medical morning Branch and 1 tablet in the evening. Do all this for 30 days. sucralfate 2022-02- Yes 1g Take 1 Univ ers 1 gram 0-02 11-02 tablet by ity of tablet 00:00: 04:59 mouth in [place] 00 :00 the Medical morning Branch and 1 tablet in the evening. Do all this for 30 days. sucralfate 2022-02- Yes 1g Take 1 Univ ers 1 gram 0-02 11-02 tablet by ity of tablet 00:00: 04:59 mouth in [place] 00 :[address] [facility] Branch and 1 tablet in the evening. Do all this for 30 days. sucralfate 2022-02- Yes 1g Take 1 Univ ers 1 gram 0-02 11-02 tablet by ity of tablet 00:00: 04:59 mouth in [place] 00 :[address] [facility] Branch and 1 tablet in the evening. Do all this for 30 days. sucralfate 2022-02- Yes 1g Take 1 Univ ers 1 gram 0-02 11-02 tablet by ity of tablet 00:00: 04:59 mouth in [place] 00 :00 the [facility] and 1 tablet in the evening. Do all this for 30 days. sucralfate 2022-02- Yes 1g Take 1 Univ ers 1 gram 0-02 11-02 tablet by ity of tablet 00:00: 04:59 mouth in [place] 00 :00 the [facility] and 1 tablet in the evening. Do all this for 30 days. sucralfate 2022-02- Yes 1g Take 1 Univ ers 1 gram 0-02 11-02 tablet by ity of tablet 00:00: 04:59 mouth in [place] 00 :00 the [facility] and 1 tablet in the evening. Do all this for 30 days. sucralfate 2022-02- Yes 1g Take 1 Univ ers 1 gram 0-02 11-02 tablet by ity of tablet 00:00: 04:59 mouth in [place] 00 :[address] [facility] Branch and 1 tablet in the evening. Do all this for 30 days. sucralfate 2022-02- Yes 1g Take 1 Univ ers 1 gram 0-02 11-02 tablet by ity of tablet 00:00: 04:59 mouth in [place] 00 :00 the [facility] and 1 tablet in the evening. Do all this for 30 days. sucralfate 2022-02- Yes 1g Take 1 Univ ers 1 gram 0-02 11-02 tablet by ity of tablet 00:00: 04:59 mouth in [place] 00 :00 the [facility] and 1 tablet in the evening. Do all this for 30 days. sucralfate 2022-02- Yes 1g Take 1 Univ ers 1 gram 0-02 11-02 tablet by ity of tablet 00:00: 04:59 mouth in [place] 00 :00 the [facility] and 1 tablet in the evening. Do all this for 30 days. sucralfate 2022-02- Yes 1g Take 1 Univ ers 1 gram 0-02 11-02 tablet by ity of tablet 00:00: 04:59 mouth in [place] 00 :00 the [facility] and 1 tablet in the evening. Do all this for 30 days. sucralfate 2022-02- Yes 1g Take 1 Univ ers 1 gram 0-02 11-02 tablet by ity of tablet 00:00: 04:59 mouth in [place] 00 :00 the [facility] and 1 tablet in the evening. Do all this for 30 days. sucralfate 2022-02- Yes 1g Take 1 Univ ers 1 gram 0-02 11-02 tablet by ity of tablet 00:00: 04:59 mouth in [place] 00 :00 the [facility] and 1 tablet in the evening. Do all this for 30 days. sucralfate 2022-02- Yes 1g Take 1 Univ ers 1 gram 0-02 11-02 tablet by ity of tablet 00:00: 04:59 mouth in [place] 00 :00 the [facility] and 1 tablet in the evening. Do all this for 30 days. sucralfate 2022-02- No 1g Take 1 Univ ers 1 gram 0-02 11-02 tablet by ity of tablet 00:00: 04:59 mouth in [place] 00 :00 the [facility] and 1 tablet in the evening. Do all this for 30 days. sucralfate 2022-02- No 1g Take 1 Univ ers 1 gram 0-02 11-02 tablet by ity of tablet 00:00: 04:59 mouth in [place] 00 :00 the [facility] and 1 tablet in the evening. Do all this for 30 days. sucralfate 2022-02- No 1g Take 1 Univ ers 1 gram 0-02 11-02 tablet by ity of tablet 00:00: 04:59 mouth in [place] 00 :00 the [facility] and 1 tablet in the evening. Do all this for 30 days. sucralfate 2022-02- No 1g Take 1 Univ ers 1 gram 012-14 tablet by ity of tablet 00:00: 04:59 mouth in [place] 00 :00 the Medical morning Branch and 1 tablet in the evening. Do all this for 30 days. sucralfate 2022-02- No 1g Take 1 Univ ers 1 gram 012-14 tablet by ity of tablet 00:00: 04:59 mouth in [place] 00 :00 the Medical morning Branch and 1 tablet in the evening. Do all this for 30 days. ketorolac 2022- No 30mg 30 mg, Unive rs (TORADOL) 11-03 Slow IV ity of injection 17:00: 16:25 Push, [place] 30 mg 00 :00 ONCE, 1 Medical dose, On Branch Sun11/03/22 at 1200, Routine NaCl 0.9% 2022- No 500mL at 999 Univ ers (NS) [...] IV ity of PF 16:00: 16:27 [place], [place] injection 00 :00 ONCE, 1 Medical 10 mg dose, On Branch Sun11/03/22 at 1100, 1 mL metoclopram 2022- No 10mg 10 mg, Uni vers chelo HCl 11-03 Slow IV ity of (REGLAN) 16:00: 16:28 Push, [place] injection 00 :00 ONCE, 1 Medical 10 mg dose, On Branch Sun11/03/22 at 1100, SKYLAR diphenhydrA 2022- No 25mg 25 mg, Uni vers MINE 11-03 Slow IV ity of (BENADRYL) 16:00: 16:30 Push, [place] injection 00 :00 ONCE, 1 Medical 25 mg dose, On Branch 11/03/22 at 1100, STAT atorvastati 2022- No 10mg Take 10 mg Univers n 10 mg 11-03 by mouth ity of tablet 10:48: 00:00 at [place] 00 :00 bedtime. [facility] Branch atorvastati 2022- No 10mg Take 10 mg Univers n 10 mg 11-03 by mouth ity of tablet 10:48: 00:00 at [place] 00 :00 bedtime. [facility] atorvastati 2022- No 10mg Take 10 mg Univers n 10 mg 11-03 by mouth ity of tablet 10:48: 00:00 at [place] 00 :00 bedtime. [facility] atorvastati 2022- No 10mg Take 10 mg Univers n 10 mg 11-03 by mouth ity of tablet 10:48: 00:00 at [place] 00 :00 bedtime. [facility] atorvastati 2022-2022- No 10mg Take 10 mg Univers n 10 mg 11-03 by mouth ity of tablet 10:48: 00:00 at [place] 00 :00 bedtime. [facility] atorvastati 2022- No 10mg Take 10 mg Univers n 10 mg 11-03 by mouth ity of tablet 10:48: 00:00 at [place] 00 :00 bedtime. [facility] atorvastati 2022- No 10mg Take 10 mg Univers n 10 mg 11-03 by mouth ity of tablet 10:48: 00:00 at [place] 00 :00 bedtime. [facility] atorvastati 2022- No 10mg Take 10 mg Univers n 10 mg 11-03 by mouth ity of tablet 10:48: 00:00 at [place] 00 :00 bedtime. [facility] atorvastati 2022-2022- No 10mg Take 10 mg Univers n 10 mg 11-03 by mouth ity of tablet 10:48: 00:00 at [place] 00 :00 bedtime. Medical Branch atorvastati 2022- No 10mg Take 10 mg Univers n 10 mg 11-0322 by mouth ity of tablet 10:48: 00:00 at [place] 00 :00 bedtime. Medical Branch butalbital- Yes [id number] 1{tbl} Take 1 Univers acetaminoph 9-22 tablet by ity of en-caff 00:00: mouth [place] 50-325-40 00 every 6 Medical mg tablet (six) Branch hours as needed for Pain (scale 7-10) or Pain (scale 4-6) for up to 12 doses. butalbital- Yes [id number] 1{tbl} Take 1 Univers acetaminoph 9-22 tablet by ity of en-caff 00:00: mouth [place] 50-325-40 00 every 6 Medical mg tablet (six) Branch hours as needed for Pain (scale 7-10) or Pain (scale 4-6) for up to 12 doses. butalbital- Yes [id number] 1{tbl} Take 1 Univers acetaminoph 9-22 tablet by ity of en-caff 00:00: mouth [place] 50-325-40 00 every 6 Medical mg tablet (six) Branch hours as needed for Pain (scale 7-10) or Pain (scale 4-6) for up to 12 doses. butalbital- Yes [id number] 1{tbl} Take 1 Univers acetaminoph 9-22 tablet by ity of en-caff 00:00: mouth [place] 50-325-40 00 every 6 Medical mg tablet (six) Branch hours as needed for Pain (scale 7-10) or Pain (scale 4-6) for up to 12 doses. butalbital- Yes [id number] 1{tbl} Take 1 Univers acetaminoph 9-22 tablet by ity of en-caff 00:00: mouth [place] 50-325-40 00 every 6 Medical mg tablet (six) Branch hours as needed for Pain (scale 7-10) or Pain (scale 4-6) for up to 12 doses. butalbital- Yes [id number] 1{tbl} Take 1 Univers acetaminoph 9-22 tablet by ity of en-caff 00:00: mouth [place] 50-325-40 00 every 6 Medical mg tablet (six) Branch hours as needed for Pain (scale 7-10) or Pain (scale 4-6) for up to 12 doses. butalbital- 3-0 Yes [id number] 1{tbl} Take 1 Univers acetaminoph 9-22 tablet by ity of en-caff 00:00: mouth [place] 50-325-40 00 every 6 Medical mg tablet (six) Branch hours as needed for Pain (scale 7-10) or Pain (scale 4-6) for up to 12 doses. butalbital- 2022-0 Yes [id number] 1{tbl} Take 1 Univers acetaminoph 9-22 tablet by ity of en-caff 00:00: mouth [place] 50-325-40 00 every 6 Medical mg tablet (six) Branch hours as needed for Pain (scale 7-10) or Pain (scale 4-6) for up to 12 doses. butalbital- 2022-0 Yes [id number] 1{tbl} Take 1 Univers acetaminoph 9-22 tablet by ity of en-caff 00:00: mouth [place] 50-325-40 00 every 6 Medical mg tablet (six) Branch hours as needed for Pain (scale 7-10) or Pain (scale 4-6) for up to 12 doses. butalbital- 2022-0 Yes [id number] 1{tbl} Take 1 Univers acetaminoph 9-22 tablet by ity of en-caff 00:00: mouth [place] 50-325-40 00 every 6 Medical mg tablet (six) Branch hours as needed for Pain (scale 7-10) or Pain (scale 4-6) for up to 12 doses. butalbital- 2022-0 Yes [id number] 1{tbl} Take 1 Univers acetaminoph 9-22 tablet by ity of en-caff 00:00: mouth [place] 50-325-40 00 every 6 Medical mg tablet (six) Branch hours as needed for Pain (scale 7-10) or Pain (scale 4-6) for up to 12 doses. butalbital- 2023-0 Yes [id number] 1{tbl} Take 1 Univers acetaminoph 9-22 tablet by ity of en-caff 00:00: mouth [place] 50-325-40 00 every 6 Medical mg tablet (six) Branch hours as needed for Pain (scale 7-10) or Pain (scale 4-6) for up to 12 doses. butalbital- 2022-0 Yes [id number] 1{tbl} Take 1 Univers acetaminoph 9-22 tablet by ity of en-caff 00:00: mouth [place] 50-325-40 00 every 6 Medical mg tablet (six) Branch hours as needed for Pain (scale 7-10) or Pain (scale 4-6) for up to 12 doses. butalbital- 2022-0 Yes [id number] 1{tbl} Take 1 Univers acetaminoph 9-22 tablet by ity of en-caff 00:00: mouth [place] 50-325-40 00 every 6 Medical mg tablet (six) Branch hours as needed for Pain (scale 7-10) or Pain (scale 4-6) for up to 12 doses. butalbital- 2022-0 Yes [id number] 1{tbl} Take 1 Univers acetaminoph 9-22 tablet by ity of en-caff 00:00: mouth [place] 50-325-40 00 every 6 Medical mg tablet (six) Branch hours as needed for Pain (scale 7-10) or Pain (scale 4-6) for up to 12 doses. butalbital- 2022-0 Yes [id number] 1{tbl} Take 1 Univers acetaminoph 9-22 tablet by ity of en-caff 00:00: mouth [place] 50-325-40 00 every 6 Medical mg tablet (six) Branch hours as needed for Pain (scale 7-10) or Pain (scale 4-6) for up to 12 doses. butalbital- 2022-0 Yes [id number] 1{tbl} Take 1 Univers acetaminoph 9-22 tablet by ity of en-caff 00:00: mouth [place] 50-325-40 00 every 6 Medical mg tablet (six) Branch hours as needed for Pain (scale 7-10) or Pain (scale 4-6) for up to 12 doses. butalbital- 2022-0 Yes [id number] 1{tbl} Take 1 Univers acetaminoph 9-22 tablet by ity of en-caff 00:00: mouth [place] 50-325-40 00 every 6 Medical mg tablet (six) Branch hours as needed for Pain (scale 7-10) or Pain (scale 4-6) for up to 12 doses. butalbital- 3-0 Yes [id number] 1{tbl} Take 1 Univers acetaminoph 9-22 tablet by ity of en-caff 00:00: mouth [place] 50-325-40 00 every 6 Medical mg tablet (six) Branch hours as needed for Pain (scale 7-10) or Pain (scale 4-6) for up to 12 doses. butalbital- 2022-0 Yes [id number] 1{tbl} Take 1 Univers acetaminoph 9-22 tablet by ity of en-caff 00:00: mouth [place] 50-325-40 00 every 6 Medical mg tablet (six) Branch hours as needed for Pain (scale 7-10) or Pain (scale 4-6) for up to 12 doses. butalbital- 2022-0 Yes [id number] 1{tbl} Take 1 Univers acetaminoph 9-22 tablet by ity of en-caff 00:00: mouth [place] 50-325-40 00 every 6 Medical mg tablet (six) Branch hours as needed for Pain (scale 7-10) or Pain (scale 4-6) for up to 12 doses. butalbital- 2022-0 Yes [id number] 1{tbl} Take 1 Univers acetaminoph 9-22 tablet by ity of en-caff 00:00: mouth [place] 50-325-40 00 every 6 Medical mg tablet (six) Branch hours as needed for Pain (scale 7-10) or Pain (scale 4-6) for up to 12 doses. butalbital- 3-0 Yes [id number] 1{tbl} Take 1 Univers acetaminoph 9-22 tablet by ity of en-caff 00:00: mouth [place] 50-325-40 00 every 6 Medical mg tablet (six) Branch hours as needed for Pain (scale 7-10) or Pain (scale 4-6) for up to 12 doses. butalbital- 3-0 Yes [id number] 1{tbl} Take 1 Univers acetaminoph 9-22 tablet by ity of en-caff 00:00: mouth [place] 50-325-40 00 every 6 Medical mg tablet (six) Branch hours as needed for Pain (scale 7-10) or Pain (scale 4-6) for up to 12 doses. butalbital- 3-0 Yes [id number] 1{tbl} Take 1 Univers acetaminoph 9-22 tablet by ity of en-caff 00:00: mouth [place] 50-325-40 00 every 6 Medical mg tablet (six) Branch hours as needed for Pain (scale 7-10) or Pain (scale 4-6) for up to 12 doses. butalbital- 2022-0 Yes [id number] 1{tbl} Take 1 Univers acetaminoph 9-22 tablet by ity of en-caff 00:00: mouth [place] 50-325-40 00 every 6 Medical mg tablet (six) Branch hours as needed for Pain (scale 7-10) or Pain (scale 4-6) for up to 12 doses. butalbital- 2022-0 Yes [id number] 1{tbl} Take 1 Univers acetaminoph 9-22 tablet by ity of en-caff 00:00: mouth [place] 50-325-40 00 every 6 Medical mg tablet (six) Branch hours as needed for Pain (scale 7-10) or Pain (scale 4-6) for up to 12 doses. butalbital- 2022-0 Yes [id number] 1{tbl} Take 1 Univers acetaminoph 9-22 tablet by ity of en-caff 00:00: mouth [place] 50-325-40 00 every 6 Medical mg tablet (six) Branch hours as needed for Pain (scale 7-10) or Pain (scale 4-6) for up to 12 doses. butalbital- 3-0 Yes [id number] 1{tbl} Take 1 Univers acetaminoph 9-22 tablet by ity of en-caff 00:00: mouth [place] 50-325-40 00 every 6 Medical mg tablet (six) Branch hours as needed for Pain (scale 7-10) or Pain (scale 4-6) for up to 12 doses. butalbital- 3-0 Yes [id number] 1{tbl} Take 1 Univers acetaminoph 9-22 tablet by ity of en-caff 00:00: mouth [place] 50-325-40 00 every 6 Medical mg tablet (six) Branch hours as needed for Pain (scale 7-10) or Pain (scale 4-6) for up to 12 doses. butalbital- 2023-0 Yes [id number] 1{tbl} Take 1 Univers acetaminoph 9-22 tablet by ity of en-caff 00:00: mouth [place] 50-325-40 00 every 6 Medical mg tablet (six) Branch hours as needed for Pain (scale 7-10) or Pain (scale 4-6) for up to 12 doses. butalbital- 2023-0 Yes [id number] 1{tbl} Take 1 Univers acetaminoph 9-22 tablet by ity of en-caff 00:00: mouth [place] 50-325-40 00 every 6 Medical mg tablet (six) Branch hours as needed for Pain (scale 7-10) or Pain (scale 4-6) for up to 12 doses. peg-electro 2023-0 Yes [id number] Take as Univers lyte soln 9-07 directed ity of 236-22.74-6 00:[place] .[place] -5.[place] 00 colonoscop Medi rogelio gram y Branch solution peg-electro 2023-0 Yes [id number] Take as Univers lyte soln 9-07 directed ity of 236-22.74-6 00:00: [place] -5.86 [place] colonoscop Medi rogelio gram y Branch solution peg-electro 2023-0 Yes [id number] Take as Univers lyte soln 9-07 directed ity of 236-22.74-6 00:00: [place] -5.[place] colonoscop Medi rogelio gram y Branch solution peg-electro 2023-0 Yes [id number] Take as Univers lyte soln 9-07 directed ity of 236-22.74-6 00:00: [place] -5.86 00 colonoscop Medi rogelio gram y Branch solution peg-electro 2023-0 Yes [id number] Take as Univers lyte soln 9-07 directed ity of 236-22.74-6 00:00: [place] -5.86 00 colonoscop Medi rogelio gram y Branch solution peg-electro 2022-0 Yes [id number] Take as Univers lyte soln 10-19 directed ity of 236-22.74-6 00:00[place] -5.[place] colonoscop Medi rogelio gram y Branch solution peg-electro 0 2022- No [id number] Take as Univers lyte soln 10-19 directed ity o f 236-22.74-6 00:00: 00:00 before [place] .74 -5.86 00 :00 colonoscop Medi rogelio gram y Branch solution peg-electro 2022-0 2022- No [id number] Take as Univers lyte soln 10-19 directed ity o f 236-22.74-6 00:00: 00:00 before [place] .74 -5.86 00 :00 colonoscop Medi rogelio gram y Branch solution peg-electro 2022-0 2022- No [id number] Take as Univers lyte soln 10-19 directed ity o f 236-22.74-6 00:00: 00:00 before [place] .74 -5.86 00 :00 colonoscop Medi rogelio gram y Branch solution peg-electro 0 2022- No [id number] Take as Univers lyte soln 10-19 directed ity o f 236-22.74-6 00:00: 00:00 before [place] .74 -5.86 00 :00 colonoscop Medi rogelio gram y Branch solution peg-electro 0 2022- No [id number] Take as Univers lyte soln 10-19 directed ity o f 236-22.74-6 00:00: 00:00 before [place] .74 -5.86 00 :00 colonoscop Medi rogelio gram y Branch solution peg-electro 2022-0 2022- No [id number] Take as Univers lyte soln 10-19 directed ity o f 236-22.74-6 00:00: 00:00 before [place] .74 -5.86 00 :00 colonoscop Medi rogelio gram y Branch solution peg-electro 2022-0 3- No [id number] Take as Univers lyte soln 10-19 directed ity o f 236-22.74-6 00:00: 00:00 before [place] .74 -5.86 00 :00 colonoscop Medi rogelio gram y Branch solution peg-electro 2022- No [id number] Take as Cathy wright 10-19 directed ity o f 236-22.74-6 00:00: 00:00 before [place] .74 -5.86 00 :00 colonoscop Medi rogelio gram y Branch solution busPIRone 2022-0 Yes [id number] 15mg Take 1 Un cristhian 15 mg 8-23 tablet by ity of tablet 00:00: mouth in [place] 00 the Medical morning Branch and 1 tablet in the evening. busPIRone 2022-0 Yes [id number] 15mg Take 1 Un cristhian 15 mg 8-23 tablet by ity of tablet 00:00: mouth in [place] 00 the Medical morning Branch and 1 tablet in the evening. busPIRone 2022-0 Yes [id number] 15mg Take 1 Un cristhian 15 mg 8-23 tablet by ity of tablet 00:00: mouth in [place] 00 the Medical morning Branch and 1 tablet in the evening. busPIRone 2022-0 Yes [id number] 15mg Take 1 Un cristhian 15 mg 8-23 tablet by ity of tablet 00:00: mouth in [place] 00 the Medical morning Branch and 1 tablet in the evening. busPIRone 3-0 Yes [id number] 15mg Take 1 Un cristhian 15 mg 8-23 tablet by ity of tablet 00:00: mouth in [place] 00 the Medical morning Branch and 1 tablet in the evening. busPIRone 3-0 Yes [id number] 15mg Take 1 Un cristhian 15 mg 8-23 tablet by ity of tablet 00:00: mouth in [place] 00 the Medical morning Branch and 1 tablet in the evening. busPIRone 3-0 Yes [id number] 15mg Take 1 Un cristhian 15 mg 8-23 tablet by ity of tablet 00:00: mouth in [place] 00 the Medical morning Branch and 1 tablet in the evening. busPIRone 3-0 Yes [id number] 15mg Take 1 Un cristhian 15 mg 8-23 tablet by ity of tablet 00:00: mouth in [place] 00 the Medical morning Branch and 1 tablet in the evening. busPIRone 3-0 Yes [id number] 15mg Take 1 Un cristhian 15 mg 8-23 tablet by ity of tablet 00:00: mouth in [place] 00 the Medical morning Branch and 1 tablet in the evening. busPIRone 2023-0 Yes [id number] 15mg Take 1 Un cristhian 15 mg 8-23 tablet by ity of tablet 00:00: mouth in [place] 00 the Medical morning Branch and 1 tablet in the evening. busPIRone 2023-0 Yes [id number] 15mg Take 1 Un cristhian 15 mg 8-23 tablet by ity of tablet 00:00: mouth in [place] 00 the Medical morning Branch and 1 tablet in the evening. busPIRone 2023-0 Yes [id number] 15mg Take 1 Un cristhian 15 mg 8-23 tablet by ity of tablet 00:00: mouth in [place] 00 the Medical morning Branch and 1 tablet in the evening. busPIRone 3-0 Yes [id number] 15mg Take 1 Un cristhian 15 mg 8-23 tablet by ity of tablet 00:00: mouth in [place] 00 the Medical morning Branch and 1 tablet in the evening. busPIRone 3-0 Yes [id number] 15mg Take 1 Un cristhian 15 mg 8-23 tablet by ity of tablet 00:00: mouth in [place] 00 the Medical morning Branch and 1 tablet in the evening. busPIRone 3-0 Yes [id number] 15mg Take 1 Un cristhian 15 mg 8-23 tablet by ity of tablet 00:00: mouth in [place] 00 the Medical morning Branch and 1 tablet in the evening. busPIRone 2023-0 Yes [id number] 15mg Take 1 Un cristhian 15 mg 8-23 tablet by ity of tablet 00:00: mouth in [place] 00 the Medical morning Branch and 1 tablet in the evening. busPIRone 2023-0 Yes [id number] 15mg Take 1 [facility] 15 mg 8-23 tablet by [facility] of tablet 00:00: mouth in [place] 00 the Medical morning Branch and 1 tablet in the evening. busPIRone 2023-0 Yes [id number] 15mg Take 1 [facility] 15 mg 8-23 tablet by [facility] of tablet 00:00: mouth in [place] 00 the Medical morning Branch and 1 tablet in the evening. busPIRone 2023-0 Yes [id number] 15mg Take 1 [facility] 15 mg 8-23 tablet by [facility] of tablet 00:00: mouth in [place] 00 the Medical morning Branch and 1 tablet in the evening. busPIRone 2023-0 Yes [id number] 15mg Take 1 [facility] 15 mg 8-23 tablet by [facility] of tablet 00:00: mouth in [place] 00 the Medical morning Branch and 1 tablet in the evening. busPIRone 2023-0 Yes [id number] 15mg Take 1 [facility] 15 mg 8-23 tablet by [facility] of tablet 00:00: mouth in [place] 00 the Medical morning Branch and 1 tablet in the evening. busPIRone 2023-0 Yes [id number] 15mg Take 1 [facility] 15 mg 8-23 tablet by [facility] of tablet 00:00: mouth in [place] 00 the Medical morning Branch and 1 tablet in the evening. busPIRone 2023-0 Yes [id number] 15mg Take 1 [facility] 15 mg 8-23 tablet by [facility] of tablet 00:00: mouth in [place] 00 the Medical morning Branch and 1 tablet in the evening. busPIRone 2023-0 Yes [id number] 15mg Take 1 [facility] 15 mg 8-23 tablet by [facility] of tablet 00:00: mouth in [place] 00 the Medical morning Branch and 1 tablet in the evening. busPIRone 2023-0 Yes [id number] 15mg Take 1 [facility] 15 mg 8-23 tablet by [facility] of tablet 00:00: mouth in [place] 00 the Medical morning Branch and 1 tablet in the evening. busPIRone 2023-0 Yes [id number] 15mg Take 1 [facility] 15 mg 8-23 tablet by [facility] of tablet 00:00: mouth in [place] 00 the Medical morning Branch and 1 tablet in the evening. busPIRone 2023-0 Yes [id number] 15mg Take 1 [facility] 15 mg 8-23 tablet by [facility] of tablet 00:00: mouth in [place] 00 the Medical morning Branch and 1 tablet in the evening. busPIRone 2023-0 Yes [id number] 15mg Take 1 [facility] 15 mg 8-23 tablet by [facility] of tablet 00:00: mouth in [place] 00 the Medical morning Branch and 1 tablet in the evening. busPIRone 2023-0 Yes [id number] 15mg Take 1 [facility] 15 mg 8-23 tablet by [facility] of tablet 00:00: mouth in [place] 00 the Medical morning Branch and 1 tablet in the evening. busPIRone 3-0 Yes [id number] 15mg Take 1 [facility] 15 mg 8-23 tablet by [facility] of tablet 00:00: mouth in [place] 00 the Medical morning Branch and 1 tablet in the evening. busPIRone 3-0 Yes [id number] 15mg Take 1 [facility] 15 mg 8-23 tablet by [facility] of tablet 00:00: mouth in [place] 00 the Medical morning Branch and 1 tablet in the evening. busPIRone 3-0 Yes [id number] 15mg Take 1 [facility] 15 mg 8-23 tablet by [facility] of tablet 00:00: mouth in [place] 00 the Medical morning Branch and 1 tablet in the evening. busPIRone 3-0 Yes [id number] 15mg Take 1 [facility] 15 mg 8-23 tablet by [facility] tablet 00:00: mouth in [place] 00 the Medical morning Branch and 1 tablet in the evening. busPIRone 3-0 Yes [id number] 15mg Take 1 [facility] 15 mg 8-23 tablet by [facility] of tablet 00:00: mouth in [place] 00 the Medical morning Branch and 1 tablet in the evening. busPIRone 3-0 Yes [id number] 15mg Take 1 [facility] 15 mg 8-23 tablet by [facility] of tablet 00:00: mouth in [place] 00 the Medical morning Branch and 1 tablet in the evening. busPIRone 3-0 Yes [id number] 15mg Take 1 [facility] 15 mg 8-23 tablet by [facility] of tablet 00:00: mouth in [place] 00 the Medical morning Branch and 1 tablet in the evening. busPIRone 3-0 Yes [id number] 15mg Take 1 [facility] 15 mg 8-23 tablet by [facility] of tablet 00:00: mouth in [place] 00 the Medical morning Branch and 1 tablet in the evening. busPIRone 3-0 2023- No [id number] 15mg Take 1 [facility] n[facility] 15 mg 8-23 - tablet by [facility] of tablet 00:00: 00:00 mouth in [place] 00 :00 the Medical morning Branch and 1 tablet in the evening. busPIRone 3-0 2023- No [id number] 15mg Take 1 [facility] n[facility] 15 mg 8-23 12-13 tablet by [facility] of tablet 00:00: 00:00 mouth in [place] 00 :00 the Medical morning Branch and 1 tablet in the evening. busPIRone 3-0 2022- No [id number] 15mg Take 1 [facility] nivers 15 mg -12-13 tablet by [facility] of tablet 00:00: 00:00 mouth in [place] 00 :00 the Medical morning Branch and 1 tablet in the evening. busPIRone 3-0 2022- No [id number] 15mg Take 1 [facility] n[facility] 15 mg -12-13 tablet by [facility] of tablet 00:00: 00:00 mouth in [place] 00 :00 the Medical morning Branch and 1 tablet in the evening. busPIRone 2022-0 2022- No [id number] 15mg Take 1 [facility] n[facility] 15 mg -12-13 tablet by [facility] of tablet 00:00: 00:00 mouth in [place] 00 :00 the Medical morning Branch and 1 tablet in the evening. busPIRone 2022-0 2022- No [id number] 15mg Take 1 [facility] 15 mg -12-13 tablet by [facility] of tablet 00:00: 00:00 mouth in [place] 00 :00 the Medical morning Branch and 1 tablet in the evening. clonazePAM 3-0 Yes [id number] Take 1 [facility] nivers 1 mg tablet 8-17 tablet by [facility]y of 00:00: mouth [place] 00 twice Medical daily as Branch needed for anxiety. clonazePAM 3-0 Yes [id number] Take 1 [facility] 1 mg tablet 8-17 tablet by [facility]y of 00:00: mouth [place] 00 twice Medical daily as Branch needed for anxiety. clonazePAM 3-0 Yes [id number] Take 1 [facility] n[facility] 1 mg tablet 8-17 tablet by [facility] of 00:00: mouth [place] 00 twice Medical daily as Branch needed for anxiety. clonazePAM 2023-0 Yes [id number] Take 1 [facility] nivers 1 mg tablet 8-17 tablet by [facility]y of 00:00: mouth [place] 00 twice Medical daily as Branch needed for anxiety. clonazePAM 2023-0 Yes [id number] Take 1 [facility] n[facility] 1 mg tablet 8-17 tablet by [facility]y of 00:00: mouth [place] 00 twice Medical daily as Branch needed for anxiety. clonazePAM 2023-0 Yes [id number] Take 1 [facility] nivers 1 mg tablet 8-17 tablet by [facility]y of 00:00: mouth [place] 00 twice Medical daily as Branch needed for anxiety. clonazePAM 2023-0 Yes [id number] Take 1 [facility] n[facility] 1 mg tablet 8-17 tablet by [facility]y of 00:00: mouth [place] 00 twice Medical daily as Branch needed for anxiety. clonazePAM 2023-0 Yes [id number] Take 1 [facility] n[facility] 1 mg tablet 8-17 tablet by [facility] of 00:00: mouth [place] 00 twice Medical daily as Branch needed for anxiety. clonazePAM 2023-0 Yes [id number] Take 1 [facility] 1 mg tablet 8-17 tablet by [facility] of 00:00: mouth [place] 00 twice Medical daily as Branch needed for anxiety. clonazePAM 2023-0 Yes [id number] Take 1 [facility] n[facility] 1 mg tablet 8-17 tablet by [facility]y of 00:00: mouth [place] 00 twice Medical daily as Branch needed for anxiety. clonazePAM 3-0 Yes [id number] Take 1 [facility] n[facility] 1 mg tablet 8-17 tablet by [facility]y of 00:00: mouth [place] 00 twice Medical daily as Branch needed for anxiety. clonazePAM 3-0 Yes [id number] Take 1 [facility] n[facility] 1 mg tablet 8-17 tablet by [facility]y of 00:00: mouth [place] 00 twice Medical daily as Branch needed for anxiety. clonazePAM 3-0 Yes [id number] Take 1 [facility] 1 mg tablet 8-17 tablet by [facility]y of 00:00: mouth [place] 00 twice Medical daily as Branch needed for anxiety. clonazePAM 3-0 Yes [id number] Take 1 [facility] n[facility] 1 mg tablet 8-17 tablet by [facility]y of 00:00: mouth [place] 00 twice Medical daily as Branch needed for anxiety. clonazePAM 2023-0 Yes [id number] Take 1 [facility] n[facility] 1 mg tablet 8-17 tablet by [facility]y of 00:00: mouth [place] 00 twice Medical daily as Branch needed for anxiety. clonazePAM 2023-0 Yes [id number] Take 1 [facility] 1 mg tablet 8-17 tablet by [facility]y of 00:00: mouth [place] 00 twice Medical daily as Branch needed for anxiety. clonazePAM 2023-0 Yes [id number] Take 1 [facility] 1 mg tablet 8-17 tablet by [facility] of 00:00: mouth [place] 00 twice Medical daily as Branch needed for anxiety. clonazePAM 2023-0 Yes [id number] Take 1 [facility] 1 mg tablet 8-17 tablet by [facility] of 00:00: mouth [place] 00 twice Medical daily as Branch needed for anxiety. clonazePAM 2023-0 Yes [id number] Take 1 [facility] 1 mg tablet 8-17 tablet by [facility]y of 00:00: mouth [place] 00 twice Medical daily as Branch needed for anxiety. clonazePAM 2023-0 Yes [id number] Take 1 [facility] 1 mg tablet 8-17 tablet by [facility] of 00:00: mouth [place] 00 twice Medical daily as Branch needed for anxiety. clonazePAM 2023-0 Yes [id number] Take 1 [facility] 1 mg tablet 8-17 tablet by [facility] of 00:00: mouth [place] 00 twice Medical daily as Branch needed for anxiety. clonazePAM 2023-0 Yes [id number] Take 1 [facility] 1 mg tablet 8-17 tablet by [facility]y of 00:00: mouth [place] 00 twice Medical daily as Branch needed for anxiety. clonazePAM 2023-0 Yes [id number] Take 1 [facility] 1 mg tablet 8-17 tablet by [facility]y of 00:00: mouth [place] 00 twice Medical daily as Branch needed for anxiety. clonazePAM 3-0 Yes [id number] Take 1 [facility] 1 mg tablet 8-17 tablet by [facility]y of 00:00: mouth [place] 00 twice Medical daily as Branch needed for anxiety. clonazePAM 3-0 Yes [id number] Take 1 [facility] 1 mg tablet 8-17 tablet by [facility]y of 00:00: mouth [place] 00 twice Medical daily as Branch needed for anxiety. clonazePAM 2023-0 Yes [id number] Take 1 [facility] 1 mg tablet 8-17 tablet by [facility]y of 00:00: mouth [place] 00 twice Medical daily as Branch needed for anxiety. clonazePAM 2023-0 Yes [id number] Take 1 [facility] 1 mg tablet 8-17 tablet by [facility]y of 00:00: mouth [place] 00 twice Medical daily as Branch needed for anxiety. clonazePAM 2023-0 Yes [id number] Take 1 [facility] 1 mg tablet 8-17 tablet by [facility]y of 00:00: mouth [place] 00 twice Medical daily as Branch needed for anxiety. clonazePAM 2023-0 Yes [id number] Take 1 [facility] 1 mg tablet 8-17 tablet by [facility]y of 00:00: mouth [place] 00 twice Medical daily as Branch needed for anxiety. clonazePAM 2023-0 Yes [id number] Take 1 [facility] 1 mg tablet 8-17 tablet by [facility] of 00:00: mouth [place] 00 twice Medical daily as Branch needed for anxiety. clonazePAM 2023-0 Yes [id number] Take 1 [facility] 1 mg tablet 8-17 tablet by ity of 00:00: mouth [place] 00 twice Medical daily as Branch needed for anxiety. clonazePAM 2023-0 Yes [id number] Take 1 [facility] 1 mg tablet 8-17 tablet by [facility] of 00:00: mouth [place] 00 twice Medical daily as Branch needed for anxiety. clonazePAM 2023-0 Yes [id number] Take 1 [facility] 1 mg tablet 8-17 tablet by [facility] of 00:00: mouth [place] 00 twice Medical daily as Branch needed for anxiety. clonazePAM 2023-0 Yes [id number] Take 1 [facility] 1 mg tablet 8-17 tablet by [facility]y of 00:00: mouth [place] 00 twice Medical daily as Branch needed for anxiety. clonazePAM 3-0 Yes [id number] Take 1 [facility] 1 mg tablet 8-17 tablet by [facility] of 00:00: mouth [place] 00 twice Medical daily as Branch needed for anxiety. clonazePAM 3-0 Yes [id number] Take 1 [facility] 1 mg tablet 8-17 tablet by [facility]y of 00:00: mouth [place] 00 twice Medical daily as Branch needed for anxiety. clonazePAM 3-0 Yes [id number] Take 1 [facility] 1 mg tablet 8-17 tablet by [facility] of 00:00: mouth [place] 00 twice Medical daily as Branch needed for anxiety. clonazePAM 3-0 Yes [id number] Take 1 [facility] 1 mg tablet 8-17 tablet by [facility] of 00:00: mouth [place] 00 twice Medical daily as Branch needed for anxiety. clonazePAM 2023-0 Yes [id number] Take 1 [facility] 1 mg tablet 8-17 tablet by [facility] of 00:00: mouth [place] 00 twice Medical daily as Branch needed for anxiety. clonazePAM 2023-0 Yes [id number] Take 1 [facility] 1 mg tablet 8-17 tablet by [facility] of 00:00: mouth [place] 00 twice Medical daily as Branch needed for anxiety. clonazePAM 2023-0 Yes [id number] Take 1 [facility] 1 mg tablet 8-17 tablet by [facility] of 00:00: mouth [place] 00 twice Medical daily as Branch needed for anxiety. clonazePAM 2023-0 Yes [id number] Take 1 [facility] 1 mg tablet 8-17 tablet by [facility] of 00:00: mouth [place] 00 twice Medical daily as Branch needed for anxiety. clonazePAM 2023-0 Yes [id number] Take 1 [facility] 1 mg tablet 8-17 tablet by [facility] of 00:00: mouth [place] 00 twice Medical daily as Branch needed for anxiety. clonazePAM 2023-0 Yes [id number] Take 1 [facility] 1 mg tablet 8-17 tablet by [facility] of 00:00: mouth [place] 00 twice Medical daily as Branch needed for anxiety. clonazePAM 3-0 3- No [id number] Take 1 [facility] 1 mg tablet 8-17 11-08 tablet by it y of 00:00: 00:00 mouth [place] 00 :00 twice Medical daily as Branch needed for anxiety. clonazePAM 3-0 3- No [id number] Take 1 [facility] 1 mg tablet 8-17 11-08 tablet by it y of 00:00: 00:00 mouth [place] 00 :00 twice Medical daily as Branch needed for anxiety. clonazePAM 3-0 3- No [id number] Take 1 [facility] 1 mg tablet 8-17 11-08 tablet by it y of 00:00: 00:00 mouth [place] 00 :00 twice Medical daily as Branch needed for anxiety. clonazePAM 3-0 3- No [id number] Take 1 [facility] 1 mg tablet 8-17 11-08 tablet by it y of 00:00: 00:00 mouth [place] 00 :00 twice Medical daily as Branch needed for anxiety. clonazePAM 3-0 3- No [id number] Take 1 [facility] 1 mg tablet 8-17 11-08 tablet by it y of 00:00: 00:00 mouth [place] 00 :00 twice Medical daily as Branch needed for anxiety. DULoxetine 2023-0 Yes [id number] 60mg Take 1 [facility] n[facility] 60 mg 8-15 capsule by [facility] of capsule 00:00: mouth in [place] 00 the Medical morning Branch and 1 capsule in the evening. DULoxetine 2023-0 Yes [id number] 60mg Take 1 [facility] 60 mg 8-15 capsule by [facility] of capsule 00:00: mouth in [place] 00 the Medical morning Branch and 1 capsule in the evening. DULoxetine 2023-0 Yes [id number] 60mg Take 1 [facility] 60 mg 8-15 capsule by ity of capsule 00:00: mouth in [place] 00 the Medical morning Branch and 1 capsule in the evening. DULoxetine 2023-0 Yes [id number] 60mg Take 1 [facility] 60 mg 8-15 capsule by ity of capsule 00:00: mouth in [place] [address] the Medical morning Branch and 1 capsule in the evening. DULoxetine 2023-0 Yes [id number] 60mg Take 1 [facility] 60 mg 8-15 capsule by it[facility] of capsule 00:00: mouth in [place] [address] the Medical morning Branch and 1 capsule in the evening. DULoxetine 2023-0 Yes [id number] 60mg Take 1 [facility] 60 mg 8-15 capsule by [facility] of capsule 00:00: mouth in [place] [address] the Medical morning Branch and 1 capsule in the evening. DULoxetine 2023-0 Yes [id number] 60mg Take 1 [facility] 60 mg 8-15 capsule by it[facility] of capsule 00:00: mouth in [place] [address] the Medical morning Branch and 1 capsule in the evening. DULoxetine 2023-0 Yes [id number] 60mg Take 1 [facility] 60 mg 8-15 capsule by it[facility] of capsule 00:00: mouth in [place] [address] the Medical morning Branch and 1 capsule in the evening. DULoxetine 2023-0 Yes [id number] 60mg Take 1 [facility] 60 mg 8-15 capsule by ity of capsule 00:00: mouth in [place] [address] the Medical morning [place] and 1 capsule in the evening. DULoxetine 2023-0 Yes [id number] 60mg Take 1 [facility] 60 mg 8-15 capsule by it[facility] of capsule 00:00: mouth in [place] [address] the Medical morning [place] and 1 capsule in the evening. DULoxetine 2023-0 Yes [id number] 60mg Take 1 [facility] 60 mg 8-15 capsule by it[facility] of capsule 00:00: mouth in [place] [address] the Medical morning Branch and 1 capsule in the evening. DULoxetine 2023-0 Yes [id number] 60mg Take 1 [facility] 60 mg 8-15 capsule by it[facility] of capsule 00:00: mouth in [place] [address] the Medical morning [place] and 1 capsule in the evening. DULoxetine 2023-0 Yes [id number] 60mg Take 1 [facility] 60 mg 8-15 capsule by ity of capsule 00:00: mouth in [address] morning [place] and 1 capsule in the evening. DULoxetine 2023-0 Yes [id number] 60mg Take 1 [facility] 60 mg 8-15 capsule by it[facility] of capsule 00:00: mouth in [place] [address] the Medical morning Branch and 1 capsule in the evening. DULoxetine 2023-0 Yes [id number] 60mg Take 1 [facility] 60 mg 8-15 capsule by it[facility] of capsule 00:00: mouth in [place] [address] the Medical morning Branch and 1 capsule in the evening. DULoxetine 2023-0 Yes [id number] 60mg Take 1 [facility] 60 mg 8-15 capsule by it[facility] of capsule 00:00: mouth in [place] [address] the Medical morning Branch and 1 capsule in the evening. DULoxetine 2023-0 Yes [id number] 60mg Take 1 [facility] 60 mg 8-15 capsule by it[facility] of capsule 00:00: mouth in [place] [address] the Medical morning Branch and 1 capsule in the evening. DULoxetine 2023-0 Yes [id number] 60mg Take 1 [facility] 60 mg 8-15 capsule by it[facility] of capsule 00:00: mouth in [place] [address] the Medical morning Branch and 1 capsule in the evening. DULoxetine 3-0 Yes [id number] 60mg Take 1 [facility] 60 mg 8-15 capsule by it[facility] of capsule 00:00: mouth in [place] [address] the Medical morning Branch and 1 capsule in the evening. DULoxetine 2023-0 Yes [id number] 60mg Take 1 [facility] 60 mg 8-15 capsule by [facility] of capsule 00:00: mouth in [place] [address] the Medical morning Branch and 1 capsule in the evening. DULoxetine 3-0 Yes [id number] 60mg Take 1 [facility] 60 mg 8-15 capsule by it[facility] of capsule 00:00: mouth in [place] [address] the Medical morning Branch and 1 capsule in the evening. DULoxetine 2023-0 Yes [id number] 60mg Take 1 [facility] 60 mg 8-15 capsule by it[facility] of capsule 00:00: mouth in [place] [address] the Medical morning Branch and 1 capsule in the evening. DULoxetine 2023-0 Yes [id number] 60mg Take 1 [facility] 60 mg 8-15 capsule by [facility] of capsule 00:00: mouth in [place] [address] the Medical morning Branch and 1 capsule in the evening. DULoxetine 2023-0 Yes [id number] 60mg Take 1 [facility] n[facility] 60 mg 8-15 capsule by it[facility] of capsule 00:00: mouth in [place] [address] the Medical morning Branch and 1 capsule in the evening. DULoxetine 2023-0 Yes [id number] 60mg Take 1 [facility] n[facility] 60 mg 8-15 capsule by it[facility] of capsule 00:00: mouth in [place] 00 the Medical morning Branch and 1 capsule in the evening. DULoxetine 2022-0 Yes [id number] 60mg Take 1 [facility] n[facility] 60 mg 8-15 capsule by it[facility] of capsule 00:00: mouth in [place] 00 the Medical morning Branch and 1 capsule in the evening. DULoxetine 2022- No [id number] 60mg Take 1 [facility] 60 mg 8-15 10-11 capsule by it[facility] of capsule 00:00: 00:00 mouth in [place] 00 :00 the Medical morning Branch and 1 capsule in the evening. DULoxetine 2022- No [id number] 60mg Take 1 [facility] 60 mg 8-15 10-11 capsule by it[facility] of capsule 00:00: 00:00 mouth in [place] 00 :00 the Medical morning Branch and 1 capsule in the evening. DULoxetine 2022- No [id number] 60mg Take 1 [facility] 60 mg 8-15 10-11 capsule by ity of capsule 00:00: 00:00 mouth in [place] 00 :00 the Medical morning Branch and 1 capsule in the evening. DULoxetine 2022- No [id number] 60mg Take 1 [facility] 60 mg 8-15 10-11 capsule by ity of capsule 00:00: 00:00 mouth in [place] 00 :00 the Medical morning Branch and 1 capsule in the evening. DULoxetine 2022-2022- No [id number] 60mg Take 1 [facility] 60 mg 8-15 10-11 capsule by ity of capsule 00:00: 00:00 mouth in [place] 00 :00 the Medical morning Branch and 1 capsule in the evening. DULoxetine 3- No [id number] 60mg Take 1 [facility] 60 mg 8-15 10-11 capsule by ity of capsule 00:00: 00:00 mouth in [place] 00 :00 the Medical morning Branch and 1 capsule in the evening. DULoxetine 0 3- No [id number] 60mg Take 1 [facility] 60 mg 8-15 10-11 capsule by ity of capsule 00:00: 00:00 mouth in [place] 00 :00 the Medical morning Branch and 1 capsule in the evening. DULoxetine 3- No [id number] 60mg Take 1 [facility] 60 mg 8-15 10-11 capsule by ity of capsule 00:00: 00:00 mouth in [place] 00 :00 the Medical morning Branch and 1 capsule in the evening. DULoxetine 2022- No [id number] 60mg Take 1 [facility] 60 mg 8-15 10-11 capsule by ity of capsule 00:00: 00:00 mouth in [place] 00 :00 the Medical morning Branch and 1 capsule in the evening. DULoxetine 2022- No [id number] 60mg Take 1 [facility] 60 mg 8-15 10-11 capsule by ity of capsule 00:00: 00:00 mouth in [place] 00 :00 the Medical morning Branch and 1 capsule in the evening. DULoxetine 2022- No [id number] 60mg Take 1 [facility] 60 mg 8-15 10-11 capsule by ity of capsule 00:00: 00:00 mouth in [place] 00 :00 the Medical morning Branch and 1 capsule in the evening. DULoxetine 2022- No [id number] 60mg Take 1 [facility] 60 mg 8-15 10-11 capsule by it[facility] of capsule 00:00: 00:00 mouth in [place] 00 :00 the Medical morning Branch and 1 capsule in the evening. DULoxetine 2022- No [id number] 60mg Take 1 [facility] 60 mg 8-15 10-11 capsule by ity of capsule 00:00: 00:00 mouth in [place] 00 :00 the Medical morning Branch and 1 capsule in the evening. lithium 2022-0 Yes [id number] 900mg Take 2 [facility] vers carbonate 8-02 tablets by [facility] CR 450 mg 00:00: [place] SR tablet 00 bedtime. Medica l Branch busPIRone 2022-0 Yes [id number] 10mg Take 1 [facility] 10 mg 8-02 tablet by ity of tablet 00:00: mouth in [place] 00 the Medical morning Branch and 1 tablet in the evening. lamoTRIgine 2022-0 Yes [id number] 100mg Take 1 [facility] 100 mg 8-02 tablet by it[facility] of tablet 00:00: mouth in [place] 00 the Medical morning Branch and 1 tablet in the evening. lithium 2022-0 Yes [id number] 900mg Take 2 [facility] vers carbonate 8-02 tablets by [facility] of CR 450 mg 00:00: [place] SR tablet 00 bedtime. [facility] busPIRone 2023-0 Yes [id number] 10mg Take 1 [facility] 10 mg 8-02 tablet by ity of tablet 00:00: mouth in [place] [address] the Medical morning Branch and 1 tablet in the evening. lamoTRIgine 2023-0 Yes [id number] 100mg Take 1 [facility] 100 mg 8-02 tablet by ity of tablet 00:00: mouth in [place] [address] the [facility] morning Branch and 1 tablet in the evening. lithium 2023-0 Yes [id number] 900mg Take 2 [facility] vers carbonate 8-02 tablets by it[facility] of CR 450 mg 00:00: mouth [place] tablet 00 bedtime. [facility] busPIRone 3-0 Yes [id number] 10mg Take 1 [facility] 10 mg 8-02 tablet by ity of tablet 00:00: mouth in [place] [address] the [facility] morning [place] and 1 tablet in the evening. lamoTRIgine 3-0 Yes [id number] 100mg Take 1 [facility] 100 mg 8-02 tablet by ity of tablet 00:00: mouth in [place] [address] the [facility] morning [place] and 1 tablet in the evening. lithium 3-0 Yes [id number] 900mg Take 2 [facility] vers carbonate 8-02 tablets by it[facility] of CR 450 mg 00:00: mouth [place] tablet 00 bedtime. [facility] busPIRone 3-0 Yes [id number] 10mg Take 1 [facility] 10 mg 8-02 tablet by ity of tablet 00:00: mouth in [place] [address] the [facility] morning [place] and 1 tablet in the evening. lamoTRIgine 2023-0 Yes [id number] 100mg Take 1 [facility] 100 mg 8-02 tablet by ity of tablet 00:00: mouth in [place] [address] the [facility] morning [place] and 1 tablet in the evening. lithium 2023-0 Yes [id number] 900mg Take 2 [facility] vers carbonate 8-02 tablets by it[facility] of CR 450 mg 00:00: [place] tablet 00 bedtime. [facility] lamoTRIgine 2023-0 Yes [id number] 100mg Take 1 [facility] 100 mg 8-02 tablet by ity of tablet 00:00: mouth in [place] [address] the [facility] morning [place] and 1 tablet in the evening. lithium 2023-0 Yes [id number] 900mg Take 2 [facility] vers carbonate 8-02 tablets by [facility] of CR 450 mg 00:00: [place] tablet [address] [facility] [place] lamoTRIgine 3-0 Yes [id number] 100mg Take 1 [facility] 100 mg 8-02 tablet by ity of tablet 00:00: mouth in [place] [address] the [facility] morning [place] and 1 tablet in the evening. lithium 2023-0 Yes [id number] 900mg Take 2 [facility] vers carbonate 8-02 tablets by [facility] of CR 450 mg 00:00: [place] tablet [address] [facility] [place] lamoTRIgine 3-0 Yes [id number] 100mg Take 1 [facility] 100 mg 8-02 tablet by ity of tablet 00:00: mouth in [place] [address] the [facility] morning [place] and 1 tablet in the evening. lithium 3-0 Yes [id number] 900mg Take 2 [facility] vers carbonate 8-02 tablets by [facility] of CR 450 mg 00:00: [place] tablet [address] [facility] [place] lamoTRIgine 3-0 Yes [id number] 100mg Take 1 [facility] 100 mg 8-02 tablet by ity of tablet 00:00: mouth in [address] and 1 tablet in the evening. lithium 3-0 Yes [id number] 900mg Take 2 [facility] vers carbonate 8-02 tablets by ity of CR 450 mg 00:00: [place] tablet [address] [facility] [place] lamoTRIgine 3-0 Yes [id number] 100mg Take 1 [facility] 100 mg 8-02 tablet by ity of tablet 00:00: mouth in [address] morning [place] and 1 tablet in the evening. lithium 3-0 Yes [id number] 900mg Take 2 [facility] vers carbonate 8-02 tablets by [facility] of CR 450 mg 00:00: [place] tablet [address] [facility] lamoTRIgine 3-0 Yes [id number] 100mg Take 1 [facility] 100 mg 8-02 tablet by ity of tablet 00:00: mouth in [address] morning [place] and 1 tablet in the evening. lithium 2023-0 Yes [id number] 900mg Take 2 [facility] vers carbonate 8-02 tablets by ity of CR 450 mg 00:00: [place] tablet [address] [facility] lamoTRIgine 2023-0 Yes [id number] 100mg Take 1 [facility] 100 mg 8-02 tablet by ity of tablet 00:00: mouth in [place] 00 the Medical morning Branch and 1 tablet in the evening. lithium 2023-0 Yes [id number] 900mg Take 2 [facility] vers carbonate 8-02 tablets by [facility] of CR 450 mg 00:00: [place] SR tablet [address] [facility] lamoTRIgine 3-0 Yes [id number] 100mg Take 1 [facility] 100 mg 8-02 tablet by ity of tablet 00:00: mouth in [place] [address] the [facility] morning Branch and 1 tablet in the evening. lithium 2023-0 Yes [id number] 900mg Take 2 [facility] vers carbonate 8-02 tablets by ity of CR 450 mg 00:00: [place] [address] [facility] [place] lamoTRIgine 3-0 Yes [id number] 100mg Take 1 [facility] 100 mg 8-02 tablet by ity of tablet 00:00: mouth in [place] [address] the [facility] morning [place] and 1 tablet in the evening. lithium 3-0 Yes [id number] 900mg Take 2 [facility] vers carbonate 8-02 tablets by [facility]y of CR 450 mg 00:00: [place] [address] [facility] lamoTRIgine 3-0 Yes [id number] 100mg Take 1 [facility] 100 mg 8-02 tablet by ity of tablet 00:00: mouth in [place] [address] the [facility] morning [place] and 1 tablet in the evening. lithium 3-0 Yes [id number] 900mg Take 2 [facility] vers carbonate 8-02 tablets by [facility]y of CR 450 mg 00:00: [place] tablet [address] [facility] lamoTRIgine 3-0 Yes [id number] 100mg Take 1 [facility] 100 mg 8-02 tablet by ity of tablet 00:00: mouth in [place] [address] the [facility] morning [place] and 1 tablet in the evening. lithium 2023-0 Yes [id number] 900mg Take 2 [facility] vers carbonate 8-02 tablets by [facility]y of CR 450 mg 00:00: [place] SR tablet [address] [facility] lamoTRIgine 3-0 Yes [id number] 100mg Take 1 [facility] 100 mg 8-02 tablet by ity of tablet 00:00: mouth in [place] 00 the Medical morning Branch and 1 tablet in the evening. lithium 3-0 Yes [id number] 900mg Take 2 [facility] vers carbonate 8-02 tablets by [facility]y of CR 450 mg 00:00: [place] SR tablet 00 bedtime. [facility] lamoTRIgine 2022-0 Yes [id number] 100mg Take 1 [facility] 100 mg 8-02 tablet by ity of tablet 00:00: mouth in [place] 00 the Medical morning Branch and 1 tablet in the evening. lithium 3-0 Yes [id number] 900mg Take 2 [facility] vers carbonate 8-02 tablets by [facility]y of CR 450 mg 00:00: [place] SR tablet 00 bedtime. [facility] lamoTRIgine 2022-0 Yes [id number] 100mg Take 1 [facility] 100 mg 8-02 tablet by ity of tablet 00:00: mouth in [place] 00 the Medical morning Branch and 1 tablet in the evening. lithium 3-0 Yes [id number] 900mg Take 2 [facility] vers carbonate 8-02 tablets by [facility]y of CR 450 mg 00:00: [place] tablet 00 bedtime. [facility] lamoTRIgine 2022-0 Yes [id number] 100mg Take 1 [facility] 100 mg 8-02 tablet by ity of tablet 00:00: mouth in [place] 00 the Medical morning Branch and 1 tablet in the evening. lithium 2022-0 Yes [id number] 900mg Take 2 [facility] vers carbonate 8-02 tablets by [facility]y of CR 450 mg 00:00: [place] tablet 00 bedtime. [facility] lamoTRIgine 2022-0 Yes [id number] 100mg Take 1 [facility] 100 mg 8-02 tablet by ity of tablet 00:00: mouth in [place] 00 the Medical morning Branch and 1 tablet in the evening. lithium 3-0 Yes [id number] 900mg Take 2 [facility] vers carbonate 8-02 tablets by [facility]y of CR 450 mg 00:00: [place] tablet 00 bedtime. [facility] lamoTRIgine 3-0 Yes [id number] 100mg Take 1 [facility] 100 mg 8-02 tablet by ity of tablet 00:00: mouth in [place] [address] the Medical morning Branch and 1 tablet in the evening. lithium 3-0 Yes [id number] 900mg Take 2 [facility] vers carbonate 8-02 tablets by [facility]y of CR 450 mg 00:00: [place] tablet [address] [facility] lamoTRIgine 3-0 Yes [id number] 100mg Take 1 [facility] 100 mg 8-02 tablet by ity of tablet 00:00: mouth in [place] [address] the [facility] morning Branch and 1 tablet in the evening. lithium 3-0 Yes [id number] 900mg Take 2 [facility] vers carbonate 8-02 tablets by [facility]y of CR 450 mg 00:00: [place] SR tablet [address] [facility] lamoTRIgine 3-0 Yes [id number] 100mg Take 1 [facility] 100 mg 8-02 tablet by ity of tablet 00:00: mouth in [place] [address] the [facility] morning Branch and 1 tablet in the evening. lithium 3-0 Yes [id number] 900mg Take 2 [facility] vers carbonate 8-02 tablets by ity of CR 450 mg 00:00: [place] tablet [address] [facility] [place] lamoTRIgine 3-0 Yes [id number] 100mg Take 1 [facility] 100 mg 8-02 tablet by ity of tablet 00:00: mouth in [address] morning [place] and 1 tablet in the evening. lithium 3-0 Yes [id number] 900mg Take 2 [facility] vers carbonate 8-02 tablets by ity of CR 450 mg 00:00: [place] tablet [address] [facility] lamoTRIgine 2022-0 Yes [id number] 100mg Take 1 [facility] 100 mg 8-02 tablet by ity of tablet 00:00: mouth in [place] [address] the [facility] morning [place] and 1 tablet in the evening. lithium 3-0 Yes [id number] 900mg Take 2 [facility] vers carbonate 8-02 tablets by [facility]y of CR 450 mg 00:00: [place] tablet [address] [facility] lamoTRIgine 3-0 Yes [id number] 100mg Take 1 [facility] 100 mg 8-02 tablet by ity of tablet 00:00: mouth in [address] morning [place] and 1 tablet in the evening. lithium 3-0 Yes [id number] 900mg Take 2 [facility] vers carbonate 8-02 tablets by [facility]y of CR 450 mg 00:00: [place] tablet [address] [facility] lamoTRIgine 3-0 Yes [id number] 100mg Take 1 [facility] 100 mg 8-02 tablet by ity of tablet 00:00: mouth in [place] [address] the Medical morning Branch and 1 tablet in the evening. lithium 2023-0 Yes [id number] 900mg Take 2 [facility] vers carbonate 8-02 tablets by ity of CR 450 mg 00:00: [place] tablet 00 bedtime. [facility] lamoTRIgine 3-0 Yes [id number] 100mg Take 1 [facility] 100 mg 8-02 tablet by ity of tablet 00:00: mouth in [place] [address] the [facility] morning [place] and 1 tablet in the evening. lithium 3-0 Yes [id number] 900mg Take 2 [facility] vers carbonate 8-02 tablets by ity of CR 450 mg 00:00: [place] tablet 00 bedtime. [facility] lamoTRIgine 2022-0 Yes [id number] 100mg Take 1 [facility] 100 mg 8-02 tablet by ity of tablet 00:00: mouth in [place] [address] the [facility] morning [place] and 1 tablet in the evening. lithium 3-0 Yes [id number] 900mg Take 2 [facility] vers carbonate 8-02 tablets by ity of CR 450 mg 00:00: [place] tablet 00 bedtime. [facility] lamoTRIgine 2022-0 Yes [id number] 100mg Take 1 [facility] 100 mg 8-02 tablet by ity of tablet 00:00: mouth in [address] and 1 tablet in the evening. lithium 3-0 Yes [id number] 900mg Take 2 [facility] vers carbonate 8-02 tablets by ity of CR 450 mg 00:00: [place] tablet 00 bedtime. [facility] lamoTRIgine 3-0 Yes [id number] 100mg Take 1 [facility] 100 mg 8-02 tablet by ity of tablet 00:00: mouth in [place] [address] the [facility] morning [place] and 1 tablet in the evening. lithium 2023-0 Yes [id number] 900mg Take 2 [facility] vers carbonate 8-02 tablets by ity of CR 450 mg 00:00: [place] SR tablet 00 bedtime. [facility] lamoTRIgine 3-0 Yes [id number] 100mg Take 1 [facility] 100 mg 8-02 tablet by ity of tablet 00:00: mouth in [address] morning [place] and 1 tablet in the evening. lithium 2023-0 Yes [id number] 900mg Take 2 [facility] vers carbonate 8-02 tablets by [facility]y of CR 450 mg 00:00: [place] SR tablet [address] [facility] lamoTRIgine 2023-0 Yes [id number] 100mg Take 1 [facility] 100 mg 8-02 tablet by ity of tablet 00:00: mouth in [place] 00 the Medical morning Branch and 1 tablet in the evening. lithium 2023-0 Yes [id number] 900mg Take 2 [facility] vers carbonate 8-02 tablets by ity of CR 450 mg 00:00: [place] SR tablet [address] [facility] lamoTRIgine 3-0 Yes [id number] 100mg Take 1 [facility] 100 mg 8-02 tablet by ity of tablet 00:00: mouth in [place] [address] the Medical morning Branch and 1 tablet in the evening. lithium 2023-0 Yes [id number] 900mg Take 2 [facility] vers carbonate 8-02 tablets by ity of CR 450 mg 00:00: [place] SR tablet 00 bedtime. [facility] lamoTRIgine 3-0 Yes [id number] 100mg Take 1 [facility] 100 mg 8-02 tablet by ity of tablet 00:00: mouth in [place] [address] the Medical morning Branch and 1 tablet in the evening. lithium 2023-0 Yes [id number] 900mg Take 2 [facility] vers carbonate 8-02 tablets by ity of CR 450 mg 00:00: [place] SR tablet [address] [facility] lamoTRIgine 2023-0 Yes [id number] 100mg Take 1 [facility] 100 mg 8-02 tablet by ity of tablet 00:00: mouth in [place] 00 the Medical morning Branch and 1 tablet in the evening. lamoTRIgine 2023-0 Yes [id number] 100mg Take 1 [facility] 100 mg 8-02 tablet by ity of tablet 00:00: mouth in [place] [address] the Medical morning Branch and 1 tablet in the evening. lamoTRIgine 2023-0 Yes [id number] 100mg Take 1 [facility] 100 mg 8-02 tablet by ity of tablet 00:00: mouth in [place] [address] the Medical morning Branch and 1 tablet in the evening. lamoTRIgine 2023-0 Yes [id number] 100mg Take 1 [facility] 100 mg 8-02 tablet by ity of tablet 00:00: mouth in [place] [address] the Medical morning Branch and 1 tablet in the evening. lamoTRIgine 2023-0 Yes [id number] 100mg Take 1 [facility] 100 mg 8-02 tablet by ity of tablet 00:00: mouth in [place] 00 the Medical morning Branch and 1 tablet in the evening. lamoTRIgine 2023-0 Yes [id number] 100mg Take 1 [facility] 100 mg 8-02 tablet by ity of tablet 00:00: mouth in [place] 00 the Medical morning Branch and 1 tablet in the evening. lamoTRIgine 2023-0 Yes [id number] 100mg Take 1 [facility] 100 mg 8-02 tablet by ity of tablet 00:00: mouth in [place] 00 the Medical morning Branch and 1 tablet in the evening. lamoTRIgine 2023-0 Yes [id number] 100mg Take 1 [facility] 100 mg 8-02 tablet by ity of tablet 00:00: mouth in [place] 00 the Medical morning Branch and 1 tablet in the evening. lamoTRIgine 2023-0 Yes [id number] 100mg Take 1 [facility] 100 mg 8-02 tablet by ity of tablet 00:00: mouth in [place] 00 the Medical morning Branch and 1 tablet in the evening. lamoTRIgine 2023-0 Yes [id number] 100mg Take 1 [facility] 100 mg 8-02 tablet by ity of tablet 00:00: mouth in [place] 00 the Medical morning Branch and 1 tablet in the evening. lamoTRIgine 2023-0 Yes [id number] 100mg Take 1 [facility] 100 mg 8-02 tablet by ity of tablet 00:00: mouth in [place] 00 the Medical morning Branch and 1 tablet in the evening. lamoTRIgine 2023-0 2023- No [id number] 100mg Take 1 [facility] 100 mg 8-02 11-08 tablet by ity of tablet 00:00: 00:00 mouth in [place] 00 :00 the Medical morning Branch and 1 tablet in the evening. lamoTRIgine 2023-0 2023- No [id number] 100mg Take 1 [facility] 100 mg 8-02 11-08 tablet by ity of tablet 00:00: 00:00 mouth in [place] 00 :00 the Medical morning Branch and 1 tablet in the evening. lamoTRIgine 2023-0 2023- No [id number] 100mg Take 1 [facility] 100 mg 8-02 11-08 tablet by ity of tablet 00:00: 00:00 mouth in [place] 00 :00 the Medical morning Branch and 1 tablet in the evening. lamoTRIgine 2022-0 2022- No [id number] 100mg Take 1 [facility] 100 mg 8-03 25-08 tablet by ity of tablet 00:00: 00:00 mouth in [place] 00 :00 the Medical morning Branch and 1 tablet in the evening. lamoTRIgine 2022-0 2022- No [id number] 100mg Take 1 [facility] 100 mg 8-03 25-08 tablet by ity of tablet 00:00: 00:00 mouth in [place] 00 :00 the Medical morning Branch and 1 tablet in the evening. lithium 2022-2022- No [id number] 900mg Take 2 Un cristhian carbonate 8-02 10-17 tablets by ity of CR 450 mg 00:00: 00:00 mouth [place] tablet 00 :00 bedtime. Medica l Branch lithium 2022-2022- No [id number] 900mg Take 2 Un cristhian carbonate 8-02 10-17 tablets by ity of CR 450 mg 00:00: 00:00 mouth at [place] SR tablet 00 :00 bedtime. Medica l Branch lithium 2022-2022- No [id number] 900mg Take 2 Un cristhian carbonate 8-02 10-17 tablets by ity of CR 450 mg 00:00: 00:00 mouth at [place] tablet 00 :00 bedtime. Medica l Branch lithium 2022-2022- No [id number] 900mg Take 2 Un cristhian carbonate 8-02 10-17 tablets by ity of CR 450 mg 00:00: 00:00 mouth at [place] tablet 00 :00 bedtime. Medica l Branch lithium 2022-2022- No [id number] 900mg Take 2 Un cristhian carbonate 8-02 10-17 tablets by ity of CR 450 mg 00:00: 00:00 mouth [place] tablet 00 :00 bedtime. Medica [facility] Branch lithium 2022-0 2022- No [id number] 900mg Take 2 Un cristhian carbonate 8-02 10-17 tablets by ity of CR 450 mg 00:00: 00:00 mouth [place] tablet 00 :00 bedtime. Medica l Branch lithium 2022-2022- No [id number] 900mg Take 2 Un cristhian carbonate 8-02 10-17 tablets by ity of CR 450 mg 00:00: 00:00 mouth [place] tablet 00 :00 bedtime. Medica l Branch lithium 2022-2022- No [id number] 900mg Take 2 Un cristhian carbonate 8- 10-17 tablets by ity of CR 450 mg 00:00: 00:00 mouth [place] tablet 00 :00 bedtime. Medica l Branch busPIRone 2022-0 2022- No [id number] 10mg Take 1 U nivers 10 mg 8- 08-23 tablet by ity of tablet 00:00: 00:00 mouth in [place] 00 :00 the Medical morning Branch and 1 tablet in the evening. busPIRone 2022-2022- No [id number] 10mg Take 1 U nivers 10 mg 8- 08-23 tablet by ity of tablet 00:00: 00:00 mouth in [place] 00 :00 the Medical morning Branch and 1 tablet in the evening. busPIRone 2022-2022- No [id number] 10mg Take 1 U nivers 10 mg 8- 08-23 tablet by ity of tablet 00:00: 00:00 mouth in [place] 00 :00 the Medical morning Branch and 1 tablet in the evening. busPIRone 2022-2022- No [id number] 10mg Take 1 U nivers 10 mg 8- 08-23 tablet by ity of tablet 00:00: 00:00 mouth in [place] 00 :00 the Medical morning Branch and 1 tablet in the evening. busPIRone 2022-2022- No [id number] 10mg Take 1 U nivers 10 mg 8- 08-23 tablet by ity of tablet 00:00: 00:00 mouth in [place] 00 :00 the Medical morning Branch and 1 tablet in the evening. clonazePAM 2022-0 Yes [id number] Take 1 U nivers 1 mg tablet 7-19 tablet by ity of 00:00: mouth [place] 00 twice Medical daily as Branch needed for anxiety. clonazePAM 2022-0 Yes [id number] Take 1 U nivers 1 mg tablet 7-19 tablet by ity of 00:00: mouth [place] 00 twice Medical daily as Branch needed for anxiety. clonazePAM 3-0 Yes [id number] Take 1 U nivers 1 mg tablet 7-19 tablet by ity of 00:00: mouth [place] 00 twice Medical daily as Branch needed for anxiety. clonazePAM 3-0 Yes [id number] Take 1 U nivers 1 mg tablet 7-19 tablet by ity of 00:00: mouth [place] 00 twice Medical daily as Branch needed for anxiety. clonazePAM 3-0 Yes [id number] Take 1 U nivers 1 mg tablet 7-19 tablet by ity of 00:00: mouth [place] 00 twice Medical daily as Branch needed for anxiety. clonazePAM 3-0 Yes [id number] Take 1 U nivers 1 mg tablet 7-19 tablet by ity of 00:00: mouth [place] 00 twice Medical daily as Branch needed for anxiety. clonazePAM 3-0 3- No [id number] Take 1 [facility] 1 mg tablet -30 09-14 tablet by it y of 00:00: 00:00 mouth [place] 00 :00 twice Medical daily as Branch needed for anxiety. clonazePAM 3-0 3- No [id number] Take 1 [facility] 1 mg tablet -30 09-14 tablet by it y of 00:00: 00:00 mouth [place] 00 :00 twice Medical daily as Branch needed for anxiety. clonazePAM 3-0 3- No [id number] Take 1 [facility] 1 mg tablet -30 09-14 tablet by it y of 00:00: 00:00 mouth [place] 00 :00 twice Medical daily as Branch needed for anxiety. clonazePAM 3-0 3- No [id number] Take 1 [facility] 1 mg tablet -30 09-14 tablet by it y of 00:00: 00:00 mouth [place] 00 :00 twice Medical daily as Branch needed for anxiety. clonazePAM 3-0 3- No [id number] Take 1 [facility] 1 mg tablet -30 09-14 tablet by it y of 00:00: 00:00 mouth [place] 00 :00 twice Medical daily as Branch needed for anxiety. clonazePAM 3-0 3- No [id number] Take 1 [facility] 1 mg tablet -30 09-14 tablet by it y of 00:00: 00:00 mouth [place] 00 :00 twice Medical daily as Branch needed for anxiety. FUROSEMIDE 2023-0 3- No 40mg Take 40 mg [facility] ORAL -26 07-14 by mouth ity of 09:33: 00:00 daily. [place] 26 :00 Medical Branch FUROSEMIDE 2023-0 3- No 40mg Take 40 mg [facility] ORAL 6-14 06-14 by mouth ity of 09:33: 00:00 daily. [place] :00 [facility] FUROSEMIDE 2022-0 3- No 40mg Take 40 mg [facility] ORAL 6-14 06-14 by mouth ity of 09:33: 00:00 daily. [place] 26 :00 [facility] FUROSEMIDE 2022-0 2022- No 40mg Take 40 mg [facility] ORAL 6-14 06-14 by mouth ity of 09:33: 00:00 daily. [place] :00 [facility] FUROSEMIDE 2022-0 2022- No 40mg Take 40 mg [facility] ORAL 6-14 06-14 by mouth ity of 09:33: 00:00 daily. [place] :00 [facility] FUROSEMIDE 2022-0 3- No 40mg Take 40 mg [facility] ORAL 6-14 06-14 by mouth ity of :33: 00:00 daily. [place] 26 :00 [facility] DULoxetine 2022-0 Yes [id number] 60mg Take 1 U nivers 60 mg 6-14 capsule by ity of capsule 00:00: mouth in [place] [address] the [facility] morning Branch and 1 capsule in the evening. lamoTRIgine 2022-0 Yes [id number] 100mg Take 1 [facility] 100 mg 6-14 tablet by ity of tablet 00:00: mouth in [place] [address] the [facility] morning [place] and 1 tablet in the evening. lithium 2022-0 Yes [id number] 900mg Take 2 Uni vers carbonate 6-14 tablets by ity of CR 450 mg 00:00: mouth at [facility] s SR tablet 00 bedtime. Medica l Branch traZODone 2022-0 Yes [id number] 50mg Take 1 U nivers 50 mg 6-14 tablet by ity of tablet 00:00: mouth at [place] [address] bedtime. Medical [place] cut Branch tablet in half. busPIRone 2022-0 Yes [id number] 10mg Take 1 Un cristhian 10 mg 6-14 tablet by ity of tablet 00:00: mouth in [place] [address] the [facility] morning [place] and 1 tablet in the evening. DULoxetine 2022-0 Yes [id number] 60mg Take 1 U nivers 60 mg 6-14 capsule by ity of capsule 00:00: mouth in [place] [address] the [facility] morning [place] and 1 capsule in the evening. lamoTRIgine 2022-0 Yes [id number] 100mg Take 1 [facility] 100 mg 6-14 tablet by ity of tablet 00:00: mouth in [place] 00 the Medical morning Branch and 1 tablet in the evening. lithium 3-0 Yes [id number] 900mg Take 2 [facility] vers carbonate 6-14 tablets by [facility]y of CR 450 mg 00:00: [place] tablet 00 bedtime. Medica l Branch traZODone 3-0 Yes [id number] 50mg Take 1 U nivers 50 mg 6-14 tablet by ity of tablet 00:00: mouth at [place] 00 bedtime. Medical [place] cut Branch tablet in half. busPIRone 2023-0 Yes [id number] 10mg Take 1 Un cristhian 10 mg 6-14 tablet by ity of tablet 00:00: mouth in [place] 00 the Medical morning Branch and 1 tablet in the evening. DULoxetine 3-0 Yes [id number] 60mg Take 1 U nivers 60 mg 6-14 capsule by ity of capsule 00:00: mouth in [place] 00 the Medical morning Branch and 1 capsule in the evening. lamoTRIgine 2022-0 Yes [id number] 100mg Take 1 [facility] 100 mg 6-14 tablet by ity of tablet 00:00: mouth in [place] 00 the Medical morning Branch and 1 tablet in the evening. lithium 3-0 Yes [id number] 900mg Take 2 [facility] vers carbonate 6-14 tablets by [facility]y of CR 450 mg 00:00: [place] SR tablet 00 bedtime. Medica l Branch traZODone 2022-0 Yes [id number] 50mg Take 1 U nivers 50 mg 6-14 tablet by ity of tablet 00:00: mouth at [place] 00 bedtime. [place] cut Branch tablet in half. busPIRone 3-0 Yes [id number] 10mg Take 1 Un cristhian 10 mg 6-14 tablet by ity of tablet 00:00: mouth in [place] 00 the Medical morning Branch and 1 tablet in the evening. DULoxetine 2023-0 Yes [id number] 60mg Take 1 U nivers 60 mg 6-14 capsule by ity of capsule 00:00: mouth in [place] [address] the Medical morning Branch and 1 capsule in the evening. lamoTRIgine 2023-0 Yes [id number] 100mg Take 1 [facility] 100 mg 6-14 tablet by ity of tablet 00:00: mouth in [place] 00 the Medical morning Branch and 1 tablet in the evening. lithium 2023-0 Yes [id number] 900mg Take 2 [facility] vers carbonate 6-14 tablets by [facility]y of CR 450 mg 00:00: [place] SR tablet 00 bedtime. Medica l Branch traZODone 3-0 Yes [id number] 50mg Take 1 U nivers 50 mg 6-14 tablet by ity of tablet 00:00: mouth at [place] 00 bedtime. [place] cut Branch tablet in half. busPIRone 3-0 Yes [id number] 10mg Take 1 Un cristhian 10 mg 6-14 tablet by ity of tablet 00:00: mouth in [place] 00 the Medical morning Branch and 1 tablet in the evening. DULoxetine 3-0 Yes [id number] 60mg Take 1 U nivers 60 mg 6-14 capsule by ity of capsule 00:00: mouth in [place] 00 the Medical morning Branch and 1 capsule in the evening. lamoTRIgine 3-0 Yes [id number] 100mg Take 1 [facility] 100 mg 6-14 tablet by ity of tablet 00:00: mouth in [place] 00 the Medical morning Branch and 1 tablet in the evening. lithium 3-0 Yes [id number] 900mg Take 2 [facility] vers carbonate 6-14 tablets by [facility]y of CR 450 mg 00:00: [place] tablet 00 bedtime. Medica l Branch traZODone 2022-0 Yes [id number] 50mg Take 1 U nivers 50 mg 6-14 tablet by ity of tablet 00:00: mouth at [place] 00 bedtime. [place] cut Branch tablet in half. busPIRone 3-0 Yes [id number] 10mg Take 1 Un cristhian 10 mg 6-14 tablet by ity of tablet 00:00: mouth in [place] 00 the Medical morning Branch and 1 tablet in the evening. DULoxetine 2023-0 Yes [id number] 60mg Take 1 U nivers 60 mg 6-14 capsule by ity of capsule 00:00: mouth in [place] [address] the Medical morning Branch and 1 capsule in the evening. lamoTRIgine 2023-0 Yes [id number] 100mg Take 1 [facility] 100 mg 6-14 tablet by ity of tablet 00:00: mouth in [place] [address] the [facility] morning Branch and 1 tablet in the evening. lithium 2023-0 Yes [id number] 900mg Take 2 [facility] vers carbonate 6-14 tablets by ity of CR 450 mg 00:00: [place] SR tablet 00 bedtime. Medica l Branch traZODone 2022-0 Yes [id number] 50mg Take 1 U nivers 50 mg 6-14 tablet by ity of tablet 00:00: mouth at [place] 00 bedtime. [place] cut Branch tablet in half. busPIRone 2022-0 Yes [id number] 10mg Take 1 Un cristhian 10 mg 6-14 tablet by ity of tablet 00:00: mouth in [place] 00 the Medical morning Branch and 1 tablet in the evening. DULoxetine 2022-0 Yes [id number] 60mg Take 1 U nivers 60 mg 6-14 capsule by ity of capsule 00:00: mouth in [place] 00 the Medical morning Branch and 1 capsule in the evening. lamoTRIgine 2022-0 Yes [id number] 100mg Take 1 [facility] 100 mg 6-14 tablet by ity of tablet 00:00: mouth in [place] 00 the Medical morning Branch and 1 tablet in the evening. lithium 2022-0 Yes [id number] 900mg Take 2 [facility] vers carbonate 6-14 tablets by ity of CR 450 mg 00:00: [place] tablet 00 bedtime. Medica l Branch traZODone 2022-0 Yes [id number] 50mg Take 1 U nivers 50 mg 6-14 tablet by ity of tablet 00:00: mouth at [place] 00 bedtime. [place] cut Branch tablet in half. busPIRone 2022-0 Yes [id number] 10mg Take 1 Un cristhian 10 mg 6-14 tablet by ity of tablet 00:00: mouth in [place] 00 the Medical morning Branch and 1 tablet in the evening. DULoxetine 2022-0 Yes [id number] 60mg Take 1 U nivers 60 mg 6-14 capsule by ity of capsule 00:00: mouth in [place] 00 the [facility] morning Branch and 1 capsule in the evening. lamoTRIgine 3-0 Yes [id number] 100mg Take 1 [facility] 100 mg 6-14 tablet by ity of tablet 00:00: mouth in [place] 00 the [facility] morning Branch and 1 tablet in the evening. lithium 3-0 Yes [id number] 900mg Take 2 [facility] vers carbonate 6-14 tablets by [facility]y of CR 450 mg 00:00: [place] tablet 00 bedtime. Medica l Branch traZODone 2022-0 Yes [id number] 50mg Take 1 U nivers 50 mg 6-14 tablet by ity of tablet 00:00: mouth at [place] [address] bedtime. Medical [place] Branch tablet in half. busPIRone 2022-0 Yes [id number] 10mg Take 1 Un cristhian 10 mg 6-14 tablet by ity of tablet 00:00: mouth in [place] 00 the Medical morning Branch and 1 tablet in the evening. DULoxetine 2022-0 Yes [id number] 60mg Take 1 U nivers 60 mg 6-14 capsule by ity of capsule 00:00: mouth in [place] 00 the Medical morning Branch and 1 capsule in the evening. lamoTRIgine 2022-0 Yes [id number] 100mg Take 1 [facility] 100 mg 6-14 tablet by ity of tablet 00:00: mouth in [place] 00 the Medical morning Branch and 1 tablet in the evening. lithium 2022-0 Yes [id number] 900mg Take 2 Uni vers carbonate 6-14 tablets by ity of CR 450 mg 00:00: mouth at [facility] SR tablet 00 bedtime. Medica l Branch traZODone 2022-0 Yes [id number] 50mg Take 1 U nivers 50 mg 6-14 tablet by ity of tablet 00:00: mouth at [place] [address] bedtime. Medical [place] cut Branch tablet in half. busPIRone 2022-0 Yes [id number] 10mg Take 1 Un cristhian 10 mg 6-14 tablet by ity of tablet 00:00: mouth in [place] 00 the Medical morning Branch and 1 tablet in the evening. DULoxetine 2022-0 Yes [id number] 60mg Take 1 [facility] 60 mg 6-14 capsule by [facility] capsule 00:00: mouth in [place] 00 the Medical morning Branch and 1 capsule in the evening. traZODone 2022-0 Yes [id number] 50mg Take 1 [facility] 50 mg 6-14 tablet by [facility] tablet 00:00: mouth at [place] 00 bedtime. Medical May cut Branch tablet in half. traZODone 2022-0 Yes [id number] 50mg Take 1 [facility] 50 mg 6-14 tablet by [facility] tablet 00:00: mouth at [place] [address] bedtime. Medical May cut Branch tablet in half. traZODone 2022-0 Yes [id number] 50mg Take 1 [facility] 50 mg 6-14 tablet by [facility] tablet 00:00: mouth at [place] [address] bedtime. Medical May cut Branch tablet in half. traZODone 2022-0 Yes [id number] 50mg Take 1 [facility] 50 mg 6-14 tablet by [facility] tablet 00:00: mouth at [place] [address] bedtime. Medical May cut Branch tablet in half. traZODone 2022-0 Yes [id number] 50mg Take 1 [facility] 50 mg 6-14 tablet by [facility] tablet 00:00: mouth at [place] [address] bedtime. Medical May cut Branch tablet in half. traZODone 2022-0 Yes [id number] 50mg Take 1 [facility] 50 mg 6-14 tablet by [facility] tablet 00:00: mouth at [place] [address] bedtime. Medical May cut Branch tablet in half. traZODone 2022-0 Yes [id number] 50mg Take 1 [facility] 50 mg 6-14 tablet by [facility] tablet 00:00: mouth at [place] [address] bedtime. Medical May cut Branch tablet in half. traZODone 2022-0 Yes [id number] 50mg Take 1 [facility] 50 mg 6-14 tablet by [facility] tablet 00:00: mouth at [place] [address] bedtime. Medical May cut Branch tablet in half. traZODone 2022-0 Yes [id number] 50mg Take 1 [facility] 50 mg 6-14 tablet by [facility] tablet 00:00: mouth at [place] [address] bedtime. Medical May cut Branch tablet in half. traZODone 2022-0 Yes [id number] 50mg Take 1 [facility] 50 mg 6-14 tablet by [facility] tablet 00:00: mouth at [place] [address] bedtime. Medical May cut Branch tablet in half. traZODone 2022-0 Yes [id number] 50mg Take 1 [facility] 50 mg 6-14 tablet by [facility] tablet 00:00: mouth at [place] [address] bedtime. Medical May cut Branch tablet in half. traZODone 2022-0 Yes [id number] 50mg Take 1 [facility] 50 mg 6-14 tablet by [facility] tablet 00:00: mouth at [place] [address] bedtime. Medical May cut Branch tablet in half. traZODone 2022-0 Yes [id number] 50mg Take 1 [facility] 50 mg 6-14 tablet by [facility] tablet 00:00: mouth at [place] [address] bedtime. Medical May cut Branch tablet in half. traZODone 2022-0 Yes [id number] 50mg Take 1 [facility] 50 mg 6-14 tablet by [facility] tablet 00:00: mouth at [place] [address] bedtime. Medical May cut Branch tablet in half. traZODone 2022-0 Yes [id number] 50mg Take 1 [facility] 50 mg 6-14 tablet by [facility] tablet 00:00: mouth at [place] [address] bedtime. Medical May cut Branch tablet in half. traZODone 2022-0 Yes [id number] 50mg Take 1 [facility] 50 mg 6-14 tablet by [facility] tablet 00:00: mouth at [place] [address] bedtime. Medical May cut Branch tablet in half. traZODone 2022-0 Yes [id number] 50mg Take 1 [facility] 50 mg 6-14 tablet by [facility] tablet 00:00: mouth at [place] [address] bedtime. Medical May cut Branch tablet in half. traZODone 2022-0 Yes [id number] 50mg Take 1 [facility] 50 mg 6-14 tablet by [facility] tablet 00:00: mouth at [place] [address] bedtime. Medical May cut Branch tablet in half. traZODone 2022-0 Yes [id number] 50mg Take 1 [facility] 50 mg 6-14 tablet by [facility] tablet 00:00: mouth at [place] [address] bedtime. Medical May cut Branch tablet in half. traZODone 2022-0 Yes [id number] 50mg Take 1 [facility] 50 mg 6-14 tablet by [facility] tablet 00:00: mouth at [place] [address] bedtime. Medical May cut Branch tablet in half. traZODone 2022-0 Yes [id number] 50mg Take 1 [facility] 50 mg 6-14 tablet by [facility] tablet 00:00: mouth at [place] [address] bedtime. Medical May cut Branch tablet in half. traZODone 2022-0 Yes [id number] 50mg Take 1 [facility] 50 mg 6-14 tablet by [facility] tablet 00:00: mouth at [place] [address] bedtime. Medical May cut Branch tablet in half. traZODone 2022-0 Yes [id number] 50mg Take 1 [facility] 50 mg 6-14 tablet by [facility] tablet 00:00: mouth at [place] [address] bedtime. Medical May cut Branch tablet in half. traZODone 2022-0 Yes [id number] 50mg Take 1 [facility] 50 mg 6-14 tablet by [facility] tablet 00:00: mouth at [place] [address] bedtime. Medical May cut Branch tablet in half. traZODone 2022-0 Yes [id number] 50mg Take 1 [facility] 50 mg 6-14 tablet by [facility] tablet 00:00: mouth at [place] [address] bedtime. Medical May cut Branch tablet in half. traZODone 2022-0 Yes [id number] 50mg Take 1 [facility] 50 mg 6-14 tablet by [facility] tablet 00:00: mouth at [place] [address] bedtime. Medical May cut Branch tablet in half. traZODone 2022-0 Yes [id number] 50mg Take 1 [facility] 50 mg 6-14 tablet by [facility] tablet 00:00: mouth at [place] [address] bedtime. Medical May cut Branch tablet in half. traZODone 2022-0 Yes [id number] 50mg Take 1 [facility] 50 mg 6-14 tablet by [facility] tablet 00:00: mouth at [place] [address] bedtime. Medical May cut Branch tablet in half. traZODone 2022-0 Yes [id number] 50mg Take 1 [facility] 50 mg 6-14 tablet by [facility] tablet 00:00: mouth at [place] [address] bedtime. Medical May cut Branch tablet in half. traZODone 2022-0 Yes [id number] 50mg Take 1 [facility] 50 mg 6-14 tablet by [facility] tablet 00:00: mouth at [place] [address] bedtime. Medical May cut Branch tablet in half. traZODone 2022-0 Yes [id number] 50mg Take 1 [facility] 50 mg 6-14 tablet by [facility] tablet 00:00: mouth at [place] [address] bedtime. Medical May cut Branch tablet in half. traZODone 2022-0 Yes [id number] 50mg Take 1 [facility] 50 mg 6-14 tablet by [facility] tablet 00:00: mouth at [place] [address] bedtime. Medical May cut Branch tablet in half. traZODone 2022-0 Yes [id number] 50mg Take 1 [facility] 50 mg 6-14 tablet by [facility] tablet 00:00: mouth at [place] [address] bedtime. Medical May cut Branch tablet in half. traZODone 2022-0 Yes [id number] 50mg Take 1 [facility] 50 mg 6-14 tablet by [facility] tablet 00:00: mouth at [place] 00 bedtime. Medical May cut Branch tablet in half. traZODone 2022-0 Yes [id number] 50mg Take 1 [facility] 50 mg 6-14 tablet by [facility] tablet 00:00: mouth at [place] [address] bedtime. Medical May cut Branch tablet in half. traZODone 2022-0 Yes [id number] 50mg Take 1 [facility] 50 mg 6-14 tablet by [facility] tablet 00:00: mouth at [place] 00 bedtime. Medical May cut Branch tablet in half. traZODone 0 Yes [id number] 50mg Take 1 [facility] 50 mg 6-14 tablet by [facility] tablet 00:00: mouth at [place] [address] bedtime. Medical May cut Branch tablet in half. traZODone 2022- No [id number] 50mg Take 1 [facility] 50 mg 6-14 10-17 tablet by [facility] tablet 00:00: 00:00 mouth at [place] 00 :00 bedtime. Medical May cut Branch tablet in half. traZODone 2022- No [id number] 50mg Take 1 [facility] 50 mg 6-14 10-17 tablet by [facility] tablet 00:00: 00:00 mouth at [place] 00 :00 bedtime. Medical May cut Branch tablet in half. traZODone 0 2022- No [id number] 50mg Take 1 [facility] 50 mg 6-14 10-17 tablet by [facility] tablet 00:00: 00:00 mouth at [place] 00 :00 bedtime. Medical May cut Branch tablet in half. traZODone 2022-2022- No [id number] 50mg Take 1 [facility] 50 mg 6-14 10-17 tablet by [facility] tablet 00:00: 00:00 mouth at [place] 00 :00 bedtime. Medical May cut Branch tablet in half. traZODone 2022- No [id number] 50mg Take 1 [facility] 50 mg 6-14 10-17 tablet by [facility] tablet 00:00: 00:00 mouth at [place] 00 :00 bedtime. Medical May cut Branch tablet in half. traZODone 2022-2022- No [id number] 50mg Take 1 [facility] 50 mg 6-14 10-17 tablet by [facility] tablet 00:00: 00:00 mouth at [place] 00 :00 bedtime. Medical May cut Branch tablet in half. traZODone 2022- No [id number] 50mg Take 1 [facility] 50 mg 6-14 10-17 tablet by [facility] tablet 00:00: 00:00 mouth at [place] 00 :00 bedtime. Medical May cut Branch tablet in half. DULoxetine 2022- No [id number] 60mg Take 1 [facility] 60 mg 6-14 08-14 capsule by [facility] capsule 00:00: 00:00 mouth in [place] 00 :00 the Medical morning Branch and 1 capsule in the evening. DULoxetine 2022- No [id number] 60mg Take 1 [facility] 60 mg 6-14 08-14 capsule by [facility] capsule 00:00: 00:00 mouth in [place] 00 :00 the Medical morning Branch and 1 capsule in the evening. DULoxetine 2022- No [id number] 60mg Take 1 [facility] 60 mg 6-14 08-14 capsule by [facility] capsule 00:00: 00:00 mouth in [place] 00 :00 the Medical morning Branch and 1 capsule in the evening. DULoxetine 2022- No [id number] 60mg Take 1 [facility] 60 mg 6-14 08-14 capsule by [facility] capsule 00:00: 00:00 mouth in [place] 00 :00 the Medical morning Branch and 1 capsule in the evening. DULoxetine 2022- No [id number] 60mg Take 1 [facility] 60 mg 6-14 08-14 capsule by [facility] capsule 00:00: 00:00 mouth in [place] 00 :00 the Medical morning Branch and 1 capsule in the evening. DULoxetine 2022- No [id number] 60mg Take 1 [facility] 60 mg 6-14 08-14 capsule by [facility] capsule 00:00: 00:00 mouth in [place] 00 :00 the Medical morning Branch and 1 capsule in the evening. DULoxetine 2022- No [id number] 60mg Take 1 [facility] 60 mg 6-14 08-14 capsule by [facility] capsule 00:00: 00:00 mouth in [place] 00 :00 the Medical morning Branch and 1 capsule in the evening. lamoTRIgine 2022-0 2022- No [id number] 100mg Take 1 [facility] 100 mg 6-14 08-02 tablet by [facility] tablet 00:00: 00:00 mouth in [place] 00 :00 the Medical morning Branch and 1 tablet in the evening. lithium 2022-2022- No [id number] 900mg Take 2 Un cristhian carbonate 6-14 08-02 tablets by [facility] of CR 450 mg 00:00: 00:00 mouth at [place] tablet 00 :00 bedtime. Medica l Branch busPIRone 2022- No [id number] 10mg Take 1 [facility] nivers 10 mg 6-14 08- tablet by [facility] tablet 00:00: 00:00 mouth in [place] 00 :00 the Medical morning Branch and 1 tablet in the evening. lamoTRIgine 2022-2022- No [id number] 100mg Take 1 [facility] 100 mg 6-14 08-02 tablet by [facility] tablet 00:00: 00:00 mouth in [place] 00 :00 the Medical morning Branch and 1 tablet in the evening. lithium 2022-0 2022- No [id number] 900mg Take 2 Un cristhian carbonate 6-14 08-02 tablets by [facility] of CR 450 mg 00:00: 00:00 mouth at [place] tablet 00 :00 bedtime. Medica l Branch busPIRone 2022- No [id number] 10mg Take 1 [facility] nivers 10 mg 6-14 08-02 tablet by [facility] tablet 00:00: 00:00 mouth in [place] 00 :00 the Medical morning Branch and 1 tablet in the evening. lamoTRIgine 2022-0 2022- No [id number] 100mg Take 1 [facility] 100 mg 6-14 08-02 tablet by [facility] tablet 00:00: 00:00 mouth in [place] 00 :00 the Medical morning Branch and 1 tablet in the evening. lithium 2022-0 2022- No [id number] 900mg Take 2 Un cristhian carbonate 6-14 08-02 tablets by [facility] of CR 450 mg 00:00: 00:00 mouth at [place] SR tablet 00 :00 bedtime. Medica l Branch busPIRone 2022-0 2022- No [id number] 10mg Take 1 [facility] nivers 10 mg 6-14 08-02 tablet by [facility] of tablet 00:00: 00:00 mouth in [place] 00 :00 the Medical morning Branch and 1 tablet in the evening. lamoTRIgine 2023-0 3- No [id number] 100mg Take 1 [facility] 100 mg 6-14 08-02 tablet by [facility] of tablet 00:00: 00:00 mouth in [place] 00 :00 the Medical morning Branch and 1 tablet in the evening. lithium 2022-0 2022- No [id number] 900mg Take 2 Un cristhian carbonate 6-14 08-02 tablets by [facility] of CR 450 mg 00:00: 00:00 mouth at [place] tablet 00 :[address] [facility] busPIRone 2022-0 2022- No [id number] 10mg Take 1 U nivers 10 mg 6-14 08-02 tablet by [facility] of tablet 00:00: 00:00 mouth in [place] 00 :00 the Medical morning Branch and 1 tablet in the evening. lamoTRIgine 2022-0 2022- No [id number] 100mg Take 1 [facility] 100 mg 6-14 08-02 tablet by [facility] of tablet 00:00: 00:00 mouth in [place] 00 :00 the Medical morning Branch and 1 tablet in the evening. lithium 3-0 2022- No [id number] 900mg Take 2 Un cristhian carbonate 6-14 08-02 tablets by ity of CR 450 mg 00:00: 00:00 mouth at [place] tablet 00 :00 bedtime. Medica l Branch busPIRone 2022-0 2022- No [id number] 10mg Take 1 [facility] nivers 10 mg 6-14 08-02 tablet by [facility] of tablet 00:00: 00:00 mouth in [place] 00 :00 the Medical morning Branch and 1 tablet in the evening. lamoTRIgine 2023-0 2022- No [id number] 100mg Take 1 [facility] 100 mg 6-14 08-02 tablet by [facility] of tablet 00:00: 00:00 mouth in [place] 00 :00 the Medical morning Branch and 1 tablet in the evening. lithium 2023-0 2022- No [id number] 900mg Take 2 Un cristhian carbonate 6-14 08-02 tablets by [facility] of CR 450 mg 00:00: 00:00 mouth at [place] tablet 00 :00 bedtime. Medica l Branch busPIRone 3-0 3- No [id number] 10mg Take 1 [facility] nivers 10 mg 6-14 - tablet by [facility] of tablet 00:00: 00:00 mouth in [place] 00 :00 the Medical morning Branch and 1 tablet in the evening. lamoTRIgine 2023-0 Yes [id number] 100mg Take 1 [facility] 100 mg 6-07 tablet by [facility] of tablet 00:00: mouth in [place] 00 the Medical morning Branch and 1 tablet in the evening. lamoTRIgine 2023-0 Yes [id number] 100mg Take 1 [facility] 100 mg 6-07 tablet by [facility] of tablet 00:00: mouth in [place] 00 the Medical morning Branch and 1 tablet in the evening. lamoTRIgine 2023-0 3- No [id number] 100mg Take 1 [facility] 100 mg 6-08 17-14 tablet by [facility] of tablet 00:00: 00:00 mouth in [place] 00 :00 the [facility] morning Branch and 1 tablet in the evening. lamoTRIgine 3-0 3- No [id number] 100mg Take 1 [facility] 100 mg 6-07 -14 tablet by [facility] of tablet 00:00: 00:00 mouth in [place] 00 :00 the [facility] morning Branch and 1 tablet in the evening. lamoTRIgine 2023-0 3- No [id number] 100mg Take 1 [facility] 100 mg 6-07 06-14 tablet by [facility] of tablet 00:00: 00:00 mouth in [place] 00 :00 the [facility] morning Branch and 1 tablet in the evening. lamoTRIgine 2023-0 3- No [id number] 100mg Take 1 [facility] 100 mg 6- 06-14 tablet by [facility]y of tablet 00:00: 00:00 mouth in [place] 00 :00 the Medical morning Branch and 1 tablet in the evening. clonazePAM 2023-0 Yes [id number] Take 1 [facility] nivers 1 mg tablet 5-24 tablet by ity of 00:00: mouth [place] 00 twice Medical daily as Branch needed for anxiety. clonazePAM 2023-0 Yes [id number] Take 1 [facility] nivers 1 mg tablet 5-24 tablet by ity of 00:00: mouth [place] 00 twice Medical daily as Branch needed for anxiety. clonazePAM 2023-0 Yes [id number] Take 1 [facility] nivers 1 mg tablet 5-24 tablet by ity of 00:00: mouth [place] 00 twice Medical daily as Branch needed for anxiety. clonazePAM 2023-0 Yes [id number] Take 1 [facility] nivers 1 mg tablet 5-24 tablet by ity of 00:00: mouth [place] 00 twice Medical daily as Branch needed for anxiety. clonazePAM 2023-0 Yes [id number] Take 1 [facility] nivers 1 mg tablet 5-24 tablet by ity of 00:00: mouth [place] 00 twice Medical daily as Branch needed for anxiety. clonazePAM 2023-0 Yes [id number] Take 1 [facility] nivers 1 mg tablet 5-24 tablet by [facility]y of 00:00: mouth [place] 00 twice Medical daily as Branch needed for anxiety. clonazePAM 3-0 Yes [id number] Take 1 [facility] nivers 1 mg tablet 5-24 tablet by ity of 00:00: mouth [place] 00 twice Medical daily as Branch needed for anxiety. clonazePAM 3-0 Yes [id number] Take 1 [facility] nivers 1 mg tablet 5-24 tablet by ity of 00:00: mouth [place] 00 twice Medical daily as Branch needed for anxiety. clonazePAM 3-0 3- No [id number] Take 1 [facility] 1 mg tablet 5-24 -18 tablet by it y of 00:00: 00:00 mouth [place] 00 :00 twice Medical daily as Branch needed for anxiety. clonazePAM 3-0 3- No [id number] Take 1 [facility] 1 mg tablet 5-24 -18 tablet by it y of 00:00: 00:00 mouth [place] 00 :00 twice Medical daily as Branch needed for anxiety. clonazePAM 2023-0 3- No [id number] Take 1 [facility] 1 mg tablet 5-24 -18 tablet by it y of 00:00: 00:00 mouth [place] 00 :00 twice Medical daily as Branch needed for anxiety. clonazePAM 2023-0 3- No [id number] Take 1 [facility] 1 mg tablet 5-24 07-18 tablet by it y of 00:00: 00:00 mouth [place] 00 :00 twice Medical daily as Branch needed for anxiety. clonazePAM 2023-0 3- No [id number] Take 1 [facility] 1 mg tablet 5-24 07-18 tablet by it y of 00:00: 00:00 mouth [place] 00 :00 twice Medical daily as Branch needed for anxiety. clonazePAM 2022-0 2022- No [id number] Take 1 [facility] 1 mg tablet 07-05-18 tablet by it y of 00:00: 00:00 mouth [place] 00 :00 twice Medical daily as Branch needed for anxiety. clonazePAM 2022-0 2022- No [id number] Take 1 [facility] 1 mg tablet 07-05-18 tablet by it y of 00:00: 00:00 mouth [place] 00 :00 twice Medical daily as Branch needed for anxiety. DULoxetine 2022-0 Yes [id number] 60mg Take 1 [facility]ivers 60 mg 5-09 capsule by [facility] of capsule 00:00: mouth in [place] the Medical morning Branch and 1 capsule in the evening. lithium 2022-0 Yes [id number] 900mg Take 2 [facility] vers carbonate 5-09 tablets by [facility] of CR 450 mg 00:00: mouth [place] SR tablet 00 bedtime. Medica l Branch DULoxetine 2022-0 Yes [id number] 60mg Take 1 [facility] nivers 60 mg 5-09 capsule by [facility] of capsule 00:00: mouth in [place] [address] the Medical morning Branch and 1 capsule in the evening. lithium 2022-0 Yes [id number] 900mg Take 2 [facility] vers carbonate 5-09 tablets by [facility] of CR 450 mg 00:00: [place] SR tablet 00 bedtime. Medica l Branch DULoxetine 2022-0 Yes [id number] 60mg Take 1 [facility] nivers 60 mg 5-09 capsule by it[facility] of capsule 00:00: mouth in [place] the Medical morning Branch and 1 capsule in the evening. lithium 3-0 Yes [id number] 900mg Take 2 [facility] vers carbonate 5-09 tablets by [facility] of CR 450 mg 00:00: mouth [place] SR tablet 00 bedtime. Medica l Branch DULoxetine 2022-0 Yes [id number] 60mg Take 1 [facility] nivers 60 mg 5-09 capsule by [facility] of capsule 00:00: mouth in [place] [address] the Medical morning Branch and 1 capsule in the evening. lithium 3-0 Yes [id number] 900mg Take 2 [facility] vers carbonate 5-09 tablets by [facility] of CR 450 mg 00:00: mouth [place] SR tablet 00 bedtime. Medica l Branch DULoxetine 3-0 Yes [id number] 60mg Take 1 [facility] nivers 60 mg 5-09 capsule by [facility] of capsule 00:00: mouth in [place] 00 the Medical morning Branch and 1 capsule in the evening. lithium 2022-0 Yes [id number] 900mg Take 2 [facility] vers carbonate 5-09 tablets by [facility] of CR 450 mg 00:00: [place] SR tablet 00 bedtime. Medica [facility] [place] DULoxetine 2022- No [id number] 60mg Take 1 [facility] 60 mg 5-10 18-14 capsule by ity of capsule 00:00: 00:00 mouth in [place] 00 :00 the Medical morning Branch and 1 capsule in the evening. lithium 2022-0 2022- No [id number] 900mg Take 2 Un cristhian carbonate 5-10 18-14 tablets by ity of CR 450 mg 00:00: 00:00 mouth at [place] tablet 00 :[address] [facility] [place] DULoxetine 2022-2022- No [id number] 60mg Take 1 [facility] 60 mg 5-10 18-14 capsule by [facility] of capsule 00:00: 00:00 mouth in [place] 00 :00 the Medical morning Branch and 1 capsule in the evening. lithium 2022-2022- No [id number] 900mg Take 2 Un cristhian carbonate 5-10 18-14 tablets by ity of CR 450 mg 00:00: 00:00 mouth at [place] tablet 00 :[address] [facility] [place] DULoxetine 2022- No [id number] 60mg Take 1 [facility] 60 mg -10 18-14 capsule by ity of capsule 00:00: 00:00 mouth in [place] 00 :00 the Medical morning Branch and 1 capsule in the evening. lithium 2022-0 2022- No [id number] 900mg Take 2 Un cristhian carbonate 5-10 18-14 tablets by ity of CR 450 mg 00:00: 00:00 mouth at [place] tablet 00 :00 bedtime. Medica l [place] DULoxetine 2022-2022- No [id number] 60mg Take 1 [facility] 60 mg 5-10 18-14 capsule by ity of capsule 00:00: 00:00 mouth in [place] 00 :00 the Medical morning Branch and 1 capsule in the evening. lithium 2022-0 2022- No [id number] 900mg Take 2 Un cristhian carbonate 5-10 18-14 tablets by ity of CR 450 mg 00:00: 00:00 mouth at [place] tablet 00 :00 bedtime. Medica l Branch DULoxetine 3-0 Yes [id number] 60mg Take 1 [facility] nivers 60 mg 3-09 capsule by [facility] of capsule 00:00: mouth in [place] 00 the Medical morning Branch and 1 capsule in the evening. clonazePAM 2023-0 Yes [id number] Take 1 [facility] 1 mg tablet 3-09 tablet by ity of 00:00: mouth [place] 00 twice Medical daily as Branch needed for anxiety. lamoTRIgine 2023-0 Yes [id number] 100mg Take 1 [facility] 100 mg 3-09 tablet by [facility] of tablet 00:00: mouth in [place] 00 the Medical morning Branch and 1 tablet in the evening. traZODone 3-0 Yes [id number] 50mg Take 1 [facility]ivers 50 mg 3-09 tablet by [facility] of tablet 00:00: mouth at [place] [address] bedtime. Medical May cut Branch tablet in half. lithium 3-0 Yes [id number] 900mg Take 2 [facility] vers carbonate 3-09 tablets by [facility] of CR 450 mg 00:00: [place] SR tablet 00 bedtime. Medica l Branch DULoxetine 3-0 Yes [id number] 60mg Take 1 [facility] nivers 60 mg 3-09 capsule by [facility] of capsule 00:00: mouth in [place] 00 the Medical morning Branch and 1 capsule in the evening. clonazePAM 3-0 Yes [id number] Take 1 [facility] nivers 1 mg tablet 3-09 tablet by ity of 00:00: mouth [place] 00 twice Medical daily as Branch needed for anxiety. lamoTRIgine 2023-0 Yes [id number] 100mg Take 1 [facility] 100 mg 3-09 tablet by ity of tablet 00:00: mouth in [place] 00 the Medical morning Branch and 1 tablet in the evening. traZODone 2023-0 Yes [id number] 50mg Take 1 [facility] 50 mg 3-09 tablet by [facility] of tablet 00:00: mouth at [place] 00 bedtime. Medical May cut Branch tablet in half. lithium 2023-0 Yes [id number] 900mg Take 2 [facility] vers carbonate 3-09 tablets by [facility] of CR 450 mg 00:00: mouth [place] SR tablet 00 bedtime. Medica l Branch clonazePAM 2023-0 Yes [id number] Take 1 [facility] nivers 1 mg tablet 3-09 tablet by ity of 00:00: mouth [place] 00 twice Medical daily as Branch needed for anxiety. lamoTRIgine 2022-0 Yes [id number] 100mg Take 1 [facility] 100 mg 3-09 tablet by ity of tablet 00:00: mouth in [place] 00 the Medical morning Branch and 1 tablet in the evening. traZODone 2022-0 Yes [id number] 50mg Take 1 [facility]ivers 50 mg 3-09 tablet by [facility] of tablet 00:00: mouth at [place] 00 bedtime. Medical May cut Branch tablet in half. clonazePAM 2022-0 Yes [id number] Take 1 [facility] 1 mg tablet 3-09 tablet by ity of 00:00: mouth [place] 00 twice Medical daily as Branch needed for anxiety. lamoTRIgine 2022-0 Yes [id number] 100mg Take 1 [facility] 100 mg 3-09 tablet by ity of tablet 00:00: mouth in [place] 00 the Medical morning Branch and 1 tablet in the evening. traZODone 2022-0 Yes [id number] 50mg Take 1 [facility] 50 mg 3-09 tablet by [facility] of tablet 00:00: mouth at [place] [address] bedtime. Medical May cut Branch tablet in half. lamoTRIgine 2022-0 Yes [id number] 100mg Take 1 [facility] 100 mg 3-09 tablet by ity of tablet 00:00: mouth in [place] 00 the Medical morning Branch and 1 tablet in the evening. traZODone 2022-0 Yes [id number] 50mg Take 1 [facility]ivers 50 mg 3-09 tablet by [facility] of tablet 00:00: mouth at [place] 00 bedtime. Medical May cut Branch tablet in half. traZODone 2022-0 Yes [id number] 50mg Take 1 [facility] 50 mg 3-09 tablet by [facility] of tablet 00:00: mouth at [place] 00 bedtime. Medical May cut Branch tablet in half. traZODone 3-0 Yes [id number] 50mg Take 1 [facility]ivers 50 mg 3-09 tablet by [facility] of tablet 00:00: mouth at [place] [address] bedtime. Medical May cut Branch tablet in half. traZODone 3-0 2023- No [id number] 50mg Take 1 [facility] 50 mg 3-09 06-14 tablet by [facility]y of tablet 00:00: 00:00 mouth at [place] 00 :00 bedtime. Medical May cut Branch tablet in half. traZODone 2023-0 3- No [id number] 50mg Take 1 [facility] 50 mg 04-20 tablet by ity of tablet 00:00: 00:00 mouth at [place] 00 :00 bedtime. Medical May cut Branch tablet in half. traZODone 2023-0 3- No [id number] 50mg Take 1 [facility] 50 mg 04-20 tablet by [facility]y of tablet 00:00: 00:00 mouth at [place] 00 :00 bedtime. Medical May cut Branch tablet in half. traZODone 2022-0 3- No [id number] 50mg Take 1 [facility] 50 mg 04-20 tablet by [facility]y of tablet 00:00: 00:00 mouth at [place] 00 :00 bedtime. Medical May cut Branch tablet in half. lamoTRIgine 2023-0 3- No [id number] 100mg Take 1 [facility] 100 mg 04-20 tablet by [facility]y of tablet 00:00: 00:00 mouth in [place] 00 :00 the Medical morning Branch and 1 tablet in the evening. lamoTRIgine 2023-0 3- No [id number] 100mg Take 1 [facility] 100 mg 04-20 tablet by [facility]y of tablet 00:00: 00:00 mouth in [place] 00 :00 the Medical morning Branch and 1 tablet in the evening. lamoTRIgine 2023-0 3- No [id number] 100mg Take 1 [facility] 100 mg 04-20 tablet by [facility]y of tablet 00:00: 00:00 mouth in [place] 00 :00 the Medical morning Branch and 1 tablet in the evening. lamoTRIgine 2023-0 3- No [id number] 100mg Take 1 [facility] 100 mg 04-20 tablet by [facility]y of tablet 00:00: 00:00 mouth in [place] 00 :00 the Medical morning Branch and 1 tablet in the evening. clonazePAM 2023-0 3- No [id number] Take 1 [facility] 1 mg tablet 04-20-24 tablet by it y of 00:00: 00:00 mouth [place] 00 :00 twice Medical daily as Branch needed for anxiety. clonazePAM 2023-0 3- No [id number] Take 1 [facility] 1 mg tablet 04-20-24 tablet by it y of 00:00: 00:00 mouth [place] 00 :00 twice Medical daily as Branch needed for anxiety. clonazePAM 2022- No [id number] Take 1 [facility] 1 mg tablet 04-20-24 tablet by it y of 00:00: 00:00 mouth [place] 00 :00 twice Medical daily as Branch needed for anxiety. clonazePAM 2022- No [id number] Take 1 [facility] 1 mg tablet 04-2024 tablet by it y of 00:00: 00:00 mouth [place] 00 :00 twice Medical daily as Branch needed for anxiety. clonazePAM 2022- No [id number] Take 1 [facility] 1 mg tablet 04-20- tablet by it y of 00:00: 00:00 mouth [place] 00 :00 twice Medical daily as Branch needed for anxiety. DULoxetine 2022-2022- No [id number] 60mg Take 1 [facility] 60 mg 04-20-06 capsule by ity of capsule 00:00: 00:00 mouth in [place] 00 :00 the Medical morning Branch and 1 capsule in the evening. lithium 2022-2022- No [id number] 900mg Take 2 Un cristhian carbonate 3- 05-06 tablets by ity of CR 450 mg 00:00: 00:00 mouth [place] tablet 00 :00 bedtime. Medica l Branch DULoxetine 2022- No [id number] 60mg Take 1 [facility] 60 mg -10 17-06 capsule by ity of capsule 00:00: 00:00 mouth in [place] 00 :00 the Medical morning Branch and 1 capsule in the evening. lithium 2022-2022- No [id number] 900mg Take 2 Un cristhian carbonate 3- 05-06 tablets by ity of CR 450 mg 00:00: 00:00 mouth at [place] tablet 00 :00 bedtime. Medica l Branch DULoxetine 2022-2022- No [id number] 60mg Take 1 [facility] 60 mg 3- 05-06 capsule by ity of capsule 00:00: 00:00 mouth in [place] 00 :00 the Medical morning Branch and 1 capsule in the evening. lithium 2022-2022- No [id number] 900mg Take 2 Un cristhian carbonate 3-09 05-06 tablets by ity of CR 450 mg 00:00: 00:00 mouth at [place] tablet 00 :00 bedtime. Medica Branch lamoTRIgine 3-0 Yes [id number] 100mg Take 1 [facility] 100 mg 1-26 tablet by ity of tablet 00:00: mouth in [place] 00 the [facility] and 1 tablet in the evening. lamoTRIgine 2023-0 Yes [id number] 100mg Take 1 [facility] 100 mg 1-26 tablet by ity of tablet 00:00: mouth in [place] 00 the [facility] morning [place] and 1 tablet in the evening. lamoTRIgine 3-0 Yes [id number] 100mg Take 1 [facility] 100 mg 1-26 tablet by ity of tablet 00:00: mouth in [place] 00 the [facility] morning [place] and 1 tablet in the evening. lamoTRIgine 3-0 Yes [id number] 100mg Take 1 [facility] 100 mg 1-26 tablet by ity of tablet 00:00: mouth in [place] [address] the [facility] and 1 tablet in the evening. lamoTRIgine 3-0 2023- No [id number] 100mg Take 1 [facility] 100 mg 1-26 03-09 tablet by ity of tablet 00:00: 00:00 mouth in [place] 00 :00 the [facility] and 1 tablet in the evening. lamoTRIgine 3-0 2023- No [id number] 100mg Take 1 [facility] 100 mg 1-26 03-09 tablet by ity of tablet 00:00: 00:00 mouth in [place] 00 :00 the [facility] and 1 tablet in the evening. DULoxetine 3-0 Yes [id number] 60mg Take 1 [facility] nivers 60 mg 1-04 capsule by ity of capsule 00:00: mouth in [place] 00 the [facility] and 1 capsule in the evening. lamoTRIgine 3-0 Yes [id number] 100mg Take 1 [facility] 100 mg 1-04 tablet by ity of tablet 00:00: mouth in [place] [address] the [facility] and 1 tablet in the evening. traZODone 3-0 Yes [id number] 50mg Take 1 [facility] nivers 50 mg 1-04 tablet by ity of tablet 00:00: mouth at [place] [address] bedtime. Medical [place] cut Branch tablet in half. clonazePAM 3-0 Yes [id number] Take 1 U nivers 1 mg tablet 1-04 tablet by ity of 00:00: mouth [place] 00 twice Medical daily as Branch needed for anxiety. lithium 600 3-0 Yes [id number] 600mg Take 1 [facility] mg capsule 1-04 capsule by ity of 00:00: mouth in [place] 00 the Medical morning Branch and 1 capsule in the evening. DULoxetine 3-0 Yes [id number] 60mg Take 1 [facility] nivers 60 mg 1-04 capsule by ity of capsule 00:00: mouth in [place] 00 the Medical morning Branch and 1 capsule in the evening. lamoTRIgine 3-0 Yes [id number] 100mg Take 1 [facility] 100 mg 1-04 tablet by ity of tablet 00:00: mouth in [place] 00 the Medical morning Branch and 1 tablet in the evening. traZODone 3-0 Yes [id number] 50mg Take 1 [facility] nivers 50 mg 1-04 tablet by ity of tablet 00:00: mouth at [place] [address] bedtime. Medical [place] cut Branch tablet in half. clonazePAM 3-0 Yes [id number] Take 1 U nivers 1 mg tablet 1-04 tablet by ity of 00:00: mouth [place] 00 twice Medical daily as Branch needed for anxiety. lithium 2022-0 Yes [id number] 900mg Take 2 [facility] vers carbonate 1-04 tablets by ity of CR 450 mg 00:00: mouth at [facility] s SR tablet 00 bedtime. Medica l Branch DULoxetine 3-0 Yes [id number] 60mg Take 1 U nivers 60 mg 1-04 capsule by ity of capsule 00:00: mouth in [place] 00 the Medical morning Branch and 1 capsule in the evening. lamoTRIgine 3-0 Yes [id number] 100mg Take 1 [facility] 100 mg 1-04 tablet by ity of tablet 00:00: mouth in [place] 00 the Medical morning Branch and 1 tablet in the evening. traZODone 3-0 Yes [id number] 50mg Take 1 U nivers 50 mg 1-04 tablet by ity of tablet 00:00: mouth at [place] [address] bedtime. Medical May cut Branch tablet in half. clonazePAM 2023-0 Yes [id number] Take 1 [facility] nivers 1 mg tablet 1-04 tablet by ity of 00:00: mouth [place] 00 twice Medical daily as Branch needed for anxiety. lithium 3-0 Yes [id number] 900mg Take 2 [facility] vers carbonate 1-04 tablets by [facility] of CR 450 mg 00:00: [place] tablet 00 bedtime. Medica l Branch DULoxetine 3-0 Yes [id number] 60mg Take 1 [facility] nivers 60 mg 1-04 capsule by ity of capsule 00:00: mouth in [place] 00 the Medical morning Branch and 1 capsule in the evening. lamoTRIgine 3-0 Yes [id number] 100mg Take 1 [facility] 100 mg 1-04 tablet by ity of tablet 00:00: mouth in [place] 00 the Medical morning Branch and 1 tablet in the evening. traZODone 3-0 Yes [id number] 50mg Take 1 U nivers 50 mg 1-04 tablet by ity of tablet 00:00: mouth at [place] 00 bedtime. Medical [facility] cut Branch tablet in half. clonazePAM 3-0 Yes [id number] Take 1 U nivers 1 mg tablet 1-04 tablet by ity of 00:00: mouth [place] 00 twice Medical daily as Branch needed for anxiety. lithium 2022-0 Yes [id number] 900mg Take 2 [facility] vers carbonate 1-04 tablets by [facility] of CR 450 mg 00:00: [place] SR tablet 00 bedtime. Medica l Branch DULoxetine 2022-0 Yes [id number] 60mg Take 1 [facility] nivers 60 mg 1-04 capsule by ity of capsule 00:00: mouth in [place] 00 the Medical morning Branch and 1 capsule in the evening. lamoTRIgine 3-0 Yes [id number] 100mg Take 1 [facility] 100 mg 1-04 tablet by ity of tablet 00:00: mouth in [place] 00 the Medical morning Branch and 1 tablet in the evening. traZODone 3-0 Yes [id number] 50mg Take 1 [facility] nivers 50 mg 1-04 tablet by ity of tablet 00:00: mouth at [place] 00 bedtime. Medical [place] cut Branch tablet in half. clonazePAM 3-0 Yes [id number] Take 1 U nivers 1 mg tablet 1-04 tablet by ity of 00:00: mouth [place] 00 twice Medical daily as Branch needed for anxiety. lithium 3-0 Yes [id number] 900mg Take 2 [facility] vers carbonate 1-04 tablets by ity of CR 450 mg 00:00: [place] SR tablet 00 bedtime. Medica l Branch DULoxetine 2023-0 Yes [id number] 60mg Take 1 U nivers 60 mg 1-04 capsule by ity of capsule 00:00: mouth in [place] 00 the Medical morning Branch and 1 capsule in the evening. lamoTRIgine 2022-0 Yes [id number] 100mg Take 1 [facility] 100 mg 1-04 tablet by ity of tablet 00:00: mouth in [place] 00 the Medical morning Branch and 1 tablet in the evening. traZODone 2022-0 Yes [id number] 50mg Take 1 U nivers 50 mg 1-04 tablet by ity of tablet 00:00: mouth at [place] 00 bedtime. Medical [place] cut Branch tablet in half. clonazePAM 2022-0 Yes [id number] Take 1 U nivers 1 mg tablet 1-04 tablet by ity of 00:00: mouth [place] 00 twice Medical daily as Branch needed for anxiety. lithium 2022-0 Yes [id number] 900mg Take 2 [facility] vers carbonate 1-04 tablets by it[facility] of CR 450 mg 00:00: [place] SR tablet 00 bedtime. Medica l Branch DULoxetine 2022-0 Yes [id number] 60mg Take 1 U nivers 60 mg 1-04 capsule by ity of capsule 00:00: mouth in [place] 00 the Medical morning Branch and 1 capsule in the evening. traZODone 2022-0 Yes [id number] 50mg Take 1 U nivers 50 mg 1-04 tablet by ity of tablet 00:00: mouth at [place] [address] bedtime. Medical May cut Branch tablet in half. clonazePAM 2022-0 Yes [id number] Take 1 [facility] nivers 1 mg tablet 1-04 tablet by ity of 00:00: mouth [place] 00 twice Medical daily as Branch needed for anxiety. lithium 2022-0 Yes [id number] 900mg Take 2 [facility] vers carbonate 1-04 tablets by ity of CR 450 mg 00:00: [place] SR tablet 00 bedtime. Medica l Branch DULoxetine 2022-0 Yes [id number] 60mg Take 1 [facility] nivers 60 mg 1-04 capsule by ity of capsule 00:00: mouth in [place] 00 the Medical morning Branch and 1 capsule in the evening. traZODone 2022-0 Yes [id number] 50mg Take 1 U nivers 50 mg 1-04 tablet by ity of tablet 00:00: mouth at [place] 00 bedtime. Medical May cut Branch tablet in half. clonazePAM 2022-0 Yes [id number] Take 1 U nivers 1 mg tablet 1-04 tablet by ity of 00:00: mouth [place] 00 twice Medical daily as Branch needed for anxiety. lithium 2022-0 Yes [id number] 900mg Take 2 [facility] vers carbonate 1-04 tablets by ity of CR 450 mg 00:00: [place] SR tablet 00 bedtime. Medica l Branch DULoxetine 2022-0 Yes [id number] 60mg Take 1 [facility] nivers 60 mg 1-04 capsule by ity of capsule 00:00: mouth in [place] 00 the Medical morning Branch and 1 capsule in the evening. traZODone 2022-0 Yes [id number] 50mg Take 1 [facility] nivers 50 mg 1-04 tablet by ity of tablet 00:00: mouth at [place] 00 bedtime. Medical [facility] cut Branch tablet in half. clonazePAM 2022-0 Yes [id number] Take 1 U nivers 1 mg tablet 1-04 tablet by ity of 00:00: mouth [place] 00 twice Medical daily as Branch needed for anxiety. lithium 2022-0 Yes [id number] 900mg Take 2 [facility] vers carbonate 1-04 tablets by ity of CR 450 mg 00:00: [place] SR tablet 00 bedtime. Medica l Branch DULoxetine 2022-0 Yes [id number] 60mg Take 1 U nivers 60 mg 1-04 capsule by ity of capsule 00:00: mouth in [place] 00 the Medical morning Branch and 1 capsule in the evening. traZODone 2022-0 Yes [id number] 50mg Take 1 U nivers 50 mg 1-04 tablet by ity of tablet 00:00: mouth at [place] 00 bedtime. Medical May cut Branch tablet in half. clonazePAM 2022-0 Yes [id number] Take 1 U nivers 1 mg tablet 1-04 tablet by ity of 00:00: mouth [place] 00 twice Medical daily as Branch needed for anxiety. lithium 2022-0 Yes [id number] 900mg Take 2 [facility] vers carbonate 1-04 tablets by [facility]y of CR 450 mg 00:00: [place] SR tablet 00 bedtime. Medica l Branch traZODone 2022-0 2023- No [id number] 50mg Take 1 [facility] 50 mg 1-04 03-09 tablet by ity of tablet 00:00: 00:00 mouth at [place] 00 :00 bedtime. Medical May cut Branch tablet in half. lithium 2022-2022- No [id number] 900mg Take 2 Un cristhian carbonate 02-15- tablets by ity of CR 450 mg 00:00: 00:00 mouth at [place] SR tablet 00 :00 bedtime. Medica l Branch traZODone 2022-2022- No [id number] 50mg Take 1 [facility] 50 mg 02-15- tablet by ity of tablet 00:00: 00:00 mouth at [place] 00 :00 bedtime. Medical May cut Branch tablet in half. lithium 2022-2022- No [id number] 900mg Take 2 Un cristhian carbonate 02-15- tablets by ity of CR 450 mg 00:00: 00:00 mouth at [place] SR tablet 00 :00 bedtime. Medica l Branch DULoxetine 2022-2022- No [id number] 60mg Take 1 [facility] 60 mg 02-15- capsule by ity of capsule 00:00: 00:00 mouth in [place] 00 :00 the Medical morning Branch and 1 capsule in the evening. clonazePAM 2022-2022- No [id number] Take 1 [facility] 1 mg tablet 02-15 tablet by it y of 00:00: 00:00 mouth [place] 00 :00 twice Medical daily as Branch needed for anxiety. DULoxetine 2022- No [id number] 60mg Take 1 [facility] 60 mg 02-15-08 capsule by ity of capsule 00:00: 00:00 mouth in [place] 00 :00 the Medical morning Branch and 1 capsule in the evening. clonazePAM 2022-0 2022- No [id number] Take 1 [facility] 1 mg tablet 02-15-08 tablet by it y of 00:00: 00:00 mouth [place] 00 :00 twice Medical daily as Branch needed for anxiety. lamoTRIgine 2022-0 2022- No [id number] 100mg Take 1 [facility] 100 mg 02-15 tablet by ity of tablet 00:00: 00:00 mouth in [place] 00 :00 the Medical morning Branch and 1 tablet in the evening. lamoTRIgine 2022-0 2022- No [id number] 100mg Take 1 [facility] 100 mg 1-04 01-26 tablet by ity of tablet 00:00: 00:00 mouth in [place] 00 :00 the Medical morning Branch and 1 tablet in the evening. lamoTRIgine 2023-0 2023- No [id number] 100mg Take 1 [facility] 100 mg 02-15 tablet by ity of tablet 00:00: 00:00 mouth in [place] 00 :00 the Medical morning Branch and 1 tablet in the evening. lamoTRIgine 2023-0 2023- No [id number] 100mg Take 1 [facility] 100 mg 02-15 tablet by ity of tablet 00:00: 00:00 mouth in [place] 00 :00 the Medical morning Branch and 1 tablet in the evening. lithium 600 2023-0 2023- No [id number] 600mg Take 1 [facility] mg capsule 02-15 capsule by it y of 00:00: 00:00 mouth in [place] 00 :00 the Medical morning Branch and 1 capsule in the evening. lithium 600 2023-0 2023- No [id number] 600mg Take 1 [facility] mg capsule 02-15 capsule by it y of 00:00: 00:00 mouth in [place] 00 :00 the Medical morning Branch and 1 capsule in the evening. lithium 600 2023-0 2023- No [id number] 600mg Take 1 [facility] mg capsule 02-15 capsule by it y of 00:00: 00:00 mouth in [place] 00 :00 the Medical morning Branch and 1 capsule in the evening. lithium 600 2023-0 2023- No [id number] 600mg Take 1 [facility] mg capsule 02-15 capsule by it y of 00:00: 00:00 mouth in [place] 00 :00 the Medical morning Branch and 1 capsule in the evening. lithium 600 2023-0 2023- No [id number] 600mg Take 1 [facility] mg capsule 02-15- capsule by it y of 00:00: 00:00 mouth in [place] 00 :00 the Medical morning Branch and 1 capsule in the evening. lithium 600 2023-0 2023- No [id number] 600mg Take 1 [facility] mg capsule -05 13- capsule by it y of 00:00: 00:00 mouth in [place] 00 :00 the Medical morning Branch and 1 capsule in the evening. lithium 600 2023-0 2023- No [id number] 600mg Take 1 [facility] mg capsule -05 13- capsule by it y of 00:00: 00:00 mouth in [place] 00 :00 the Medical morning Branch and 1 capsule in the evening. lithium 600 2022- No [id number] 600mg Take 1 [facility] mg capsule 02-15 capsule by it y of 00:00: 00:00 mouth in [place] 00 :00 the Medical morning Branch and 1 capsule in the evening. DULoxetine 2021-02 Yes [id number] 60mg Take 1 U nivers 60 mg 2- capsule by ity of capsule 00:00: mouth in [place] 00 the Medical morning Branch and 1 capsule in the evening. DULoxetine 2021-02- No [id number] 60mg Take 1 [facility] 60 mg 2-11 03- capsule by ity of capsule 00:00: 00:00 mouth in [place] 00 :00 the Medical morning Branch and 1 capsule in the evening. DULoxetine 2021-02- No [id number] 60mg Take 1 [facility] 60 mg -02-15 capsule by ity of capsule 00:00: 00:00 mouth in [place] 00 :00 the Medical morning Branch and 1 capsule in the evening. DULoxetine 2021-02- No [id number] 60mg Take 1 [facility] 60 mg 2-11 03- capsule by ity of capsule 00:00: 00:00 mouth in [place] 00 :00 the Medical morning Branch and 1 capsule in the evening. DULoxetine 2021-02- No [id number] 60mg Take 1 [facility] 60 mg 2-11 03- capsule by ity of capsule 00:00: 00:00 mouth in [place] 00 :00 the Medical morning Branch and 1 capsule in the evening. DULoxetine 2021-02- No [id number] 60mg Take 1 [facility] 60 mg 2-11 03- capsule by ity of capsule 00:00: 00:00 mouth in [place] 00 :00 the Medical morning Branch and 1 capsule in the evening. DULoxetine 2021-02- No [id number] 60mg Take 1 [facility] 60 mg 2-28 - capsule by ity of capsule 00:00: 00:00 mouth in [place] 00 :00 the Medical morning Branch and 1 capsule in the evening. DULoxetine 2021-02- No [id number] 60mg Take 1 [facility] 60 mg 2-28 - capsule by ity of capsule 00:00: 00:00 mouth in [place] 00 :00 the Medical morning Branch and 1 capsule in the evening. DULoxetine 2021-02- No [id number] 60mg Take 1 [facility] 60 mg 2-28 - capsule by ity of capsule 00:00: 00:00 mouth in [place] 00 :00 the Medical morning Branch and 1 capsule in the evening. lamoTRIgine 2021-02 Yes [id number] 100mg Take 1 [facility] 100 mg 2-22 tablet by ity of tablet 00:00: mouth in [place] 00 the Medical morning Branch and 1 tablet in the evening. lamoTRIgine 2021-02 Yes [id number] 100mg Take 1 [facility] 100 mg 2-22 tablet by ity of tablet 00:00: mouth in [place] 00 the Medical morning Branch and 1 tablet in the evening. lamoTRIgine 2021-02- No [id number] 100mg Take 1 [facility] 100 mg 2-22 -04 tablet by ity of tablet 00:00: 00:00 mouth in [place] 00 :00 the Medical morning Branch and 1 tablet in the evening. lamoTRIgine 2021-02- No [id number] 100mg Take 1 [facility] 100 mg 2-22 -04 tablet by ity of tablet 00:00: 00:00 mouth in [place] 00 :00 the Medical morning Branch and 1 tablet in the evening. lamoTRIgine 2021-02- No [id number] 100mg Take 1 [facility] 100 mg 2-22 -04 tablet by ity of tablet 00:00: 00:00 mouth in [place] 00 :00 the Medical morning Branch and 1 tablet in the evening. lamoTRIgine 2021-02- No [id number] 100mg Take 1 [facility] 100 mg 2-22 -04 tablet by ity of tablet 00:00: 00:00 mouth in [place] 00 :00 the Medical morning Branch and 1 tablet in the evening. lamoTRIgine 2021-02- No [id number] 100mg Take 1 [facility] 100 mg 2-22 -04 tablet by ity of tablet 00:00: 00:00 mouth in [place] 00 :00 the Medical morning Branch and 1 tablet in the evening. lamoTRIgine 2021-02- No [id number] 100mg Take 1 [facility] 100 mg 2-22 -04 tablet by ity of tablet 00:00: 00:00 mouth in [place] 00 :00 the Medical morning Branch and 1 tablet in the evening. lamoTRIgine 2021-02- No [id number] 100mg Take 1 [facility] 100 mg 04-05 tablet by ity of tablet 00:00: 00:00 mouth in [place] 00 :00 the Medical morning Branch and 1 tablet in the evening. lamoTRIgine 2021-02- No [id number] 100mg Take 1 [facility] 100 mg 04-05 tablet by ity of tablet 00:00: 00:00 mouth in [place] 00 :00 the Medical morning Branch and 1 tablet in the evening. traZODone 2021-02 Yes [id number] 50mg Take 1 U nivers 50 mg 1-30 tablet by ity of tablet 00:00: mouth at [place] [address] bedtime. Medical May cut Branch tablet in half. lamoTRIgine 2021-02 Yes [id number] 100mg Take 1 [facility] 100 mg 1-30 tablet by ity of tablet 00:00: mouth in [place] 00 the Medical morning Branch and 1 tablet in the evening. traZODone 2021-02 Yes [id number] 50mg Take 1 U nivers 50 mg 1-30 tablet by ity of tablet 00:00: mouth at [place] [address] bedtime. Medical May cut Branch tablet in half. lamoTRIgine 2021-02 Yes [id number] 100mg Take 1 [facility] 100 mg 1-30 tablet by ity of tablet 00:00: mouth in [place] 00 the Medical morning Branch and 1 tablet in the evening. traZODone 2021-02 Yes [id number] 50mg Take 1 U nivers 50 mg 1-30 tablet by ity of tablet 00:00: mouth at [place] [address] bedtime. Medical May cut Branch tablet in half. lamoTRIgine 2021-02 Yes [id number] 100mg Take 1 [facility] 100 mg 1-30 tablet by ity of tablet 00:00: mouth in [place] 00 the Medical morning Branch and 1 tablet in the evening. traZODone 2021-02 Yes [id number] 50mg Take 1 U nivers 50 mg 1-30 tablet by [facility]y of tablet 00:00: mouth at [place] [address] bedtime. Medical May cut Branch tablet in half. traZODone 2021-02 Yes [id number] 50mg Take 1 U nivers 50 mg 1-30 tablet by ity of tablet 00:00: mouth at [place] 00 bedtime. Medical May cut Branch tablet in half. traZODone 2021-02- No [id number] 50mg Take 1 [facility] 50 mg 1-30 01-04 tablet by [facility]y of tablet 00:00: 00:00 mouth at [place] 00 :00 bedtime. Medical May cut Branch tablet in half. traZODone 2021-02- No [id number] 50mg Take 1 [facility] 50 mg 1-30 -04 tablet by [facility]y of tablet 00:00: 00:00 mouth at [place] 00 :00 bedtime. Medical May cut Branch tablet in half. traZODone 2021-02- No [id number] 50mg Take 1 [facility] 50 mg 1-30 -04 tablet by [facility]y of tablet 00:00: 00:00 mouth at [place] 00 :00 bedtime. Medical May cut Branch tablet in half. traZODone 2021-02- No [id number] 50mg Take 1 [facility] 50 mg 1-30 -04 tablet by [facility]y of tablet 00:00: 00:00 mouth at [place] 00 :00 bedtime. Medical May cut Branch tablet in half. traZODone 2021-02- No [id number] 50mg Take 1 [facility] 50 mg 1-30 -04 tablet by [facility]y of tablet 00:00: 00:00 mouth at [place] 00 :00 bedtime. Medical May cut Branch tablet in half. traZODone 2021-02- No [id number] 50mg Take 1 [facility] 50 mg 1-30 -04 tablet by [facility] of tablet 00:00: 00:00 mouth at [place] 00 :00 bedtime. Medical May cut Branch tablet in half. traZODone 2021-02- No [id number] 50mg Take 1 [facility] 50 mg 1-30 01-04 tablet by ity of tablet 00:00: 00:00 mouth at [place] 00 :00 bedtime. Medical May cut Branch tablet in half. traZODone 2021-02- No [id number] 50mg Take 1 [facility] 50 mg 1-30 -04 tablet by [facility]y of tablet 00:00: 00:00 mouth at [place] 00 :00 bedtime. Medical May cut Branch tablet in half. lamoTRIgine 2021-02- No [id number] 100mg Take 1 [facility] 100 mg 1-30 12-22 tablet by ity of tablet 00:00: 00:00 mouth in [place] 00 :00 the Medical morning Branch and 1 tablet in the evening. lamoTRIgine 2021-02- No [id number] 100mg Take 1 [facility] 100 mg 1-30 12-22 tablet by ity of tablet 00:00: 00:00 mouth in [place] 00 :00 the Medical morning Branch and 1 tablet in the evening. lamoTRIgine 2021-02- No [id number] 100mg Take 1 [facility] 100 mg 1-30 12-22 tablet by ity of tablet 00:00: 00:00 mouth in [place] 00 :00 the Medical morning Branch and 1 tablet in the evening. lamoTRIgine 2021-02- No [id number] 100mg Take 1 [facility] 100 mg 1-30 12-22 tablet by ity of tablet 00:00: 00:00 mouth in [place] 00 :00 the Medical morning Branch and 1 tablet in the evening. lamoTRIgine 2021-02- No [id number] 100mg Take 1 [facility] 100 mg 1-30 12-22 tablet by ity of tablet 00:00: 00:00 mouth in [place] 00 :00 the Medical morning Branch and 1 tablet in the evening. DULoxetine 2021-02 Yes [id number] 60mg Take 1 [facility] nivers 60 mg 1-28 capsule by ity of capsule 00:00: mouth in [place] 00 the Medical morning Branch and 1 capsule in the evening. clonazePAM 2021-02 Yes [id number] Take 1 U nivers 1 mg tablet 1-28 tablet by ity of 00:00: mouth [place] 00 twice Medical daily as Branch needed for anxiety. DULoxetine 2021-02 Yes [id number] 60mg Take 1 [facility] nivers 60 mg 1-28 capsule by ity of capsule 00:00: mouth in [place] 00 the Medical morning Branch and 1 capsule in the evening. clonazePAM 2021-02 Yes [id number] Take 1 U nivers 1 mg tablet 1-28 tablet by ity of 00:00: mouth [place] 00 twice Medical daily as Branch needed for anxiety. DULoxetine 2021-02 Yes [id number] 60mg Take 1 U nivers 60 mg 1-28 capsule by ity of capsule 00:00: mouth in [place] 00 the Medical morning Branch and 1 capsule in the evening. clonazePAM 2021-02 Yes [id number] Take 1 [facility] nivers 1 mg tablet 1-28 tablet by ity of 00:00: mouth [place] 00 twice Medical daily as Branch needed for anxiety. DULoxetine 2021-02 Yes [id number] 60mg Take 1 [facility] nivers 60 mg 1-28 capsule by ity of capsule 00:00: mouth in [place] 00 the Medical morning Branch and 1 capsule in the evening. clonazePAM 2021-02 Yes [id number] Take 1 [facility] nivers 1 mg tablet 1-28 tablet by ity of 00:00: mouth [place] 00 twice Medical daily as Branch needed for anxiety. DULoxetine 2021-02 Yes [id number] 60mg Take 1 [facility] nivers 60 mg 1-28 capsule by [facility]y of capsule 00:00: mouth in [place] 00 the Medical morning Branch and 1 capsule in the evening. clonazePAM 2021-02 Yes [id number] Take 1 [facility] nivers 1 mg tablet 1-28 tablet by ity of 00:00: mouth [place] 00 twice Medical daily as Branch needed for anxiety. DULoxetine 2021-02 Yes [id number] 60mg Take 1 [facility] nivers 60 mg 1-28 capsule by [facility]y of capsule 00:00: mouth in [place] 00 the Medical morning Branch and 1 capsule in the evening. clonazePAM 2021-02 Yes [id number] Take 1 [facility] nivers 1 mg tablet 1-28 tablet by ity of 00:00: mouth [place] 00 twice Medical daily as Branch needed for anxiety. clonazePAM 2021-02 Yes [id number] Take 1 U nivers 1 mg tablet 1-28 tablet by ity of 00:00: mouth [place] 00 twice Medical daily as Branch needed for anxiety. clonazePAM 2021-02- No [id number] Take 1 [facility] 1 mg tablet -11 03- tablet by it y of 00:00: 00:00 mouth [place] 00 :00 twice Medical daily as Branch needed for anxiety. clonazePAM 2021-02- No [id number] Take 1 [facility] 1 mg tablet -11 03- tablet by it y of 00:00: 00:00 mouth [place] 00 :00 twice Medical daily as Branch needed for anxiety. clonazePAM 2021-02- No [id number] Take 1 [facility] 1 mg tablet -11 03- tablet by it y of 00:00: 00:00 mouth [place] 00 :00 twice Medical daily as Branch needed for anxiety. clonazePAM 2021-02- No [id number] Take 1 [facility] 1 mg tablet 03-11 tablet by it y of 00:00: 00:00 mouth [place] 00 :00 twice Medical daily as Branch needed for anxiety. clonazePAM 2021-02- No [id number] Take 1 [facility] 1 mg tablet 03-11 tablet by it y of 00:00: 00:00 mouth [place] 00 :00 twice Medical daily as Branch needed for anxiety. clonazePAM 2021-02- No [id number] Take 1 [facility] 1 mg tablet 03-11 tablet by it y of 00:00: 00:00 mouth [place] 00 :00 twice Medical daily as Branch needed for anxiety. clonazePAM 2021-02- No [id number] Take 1 [facility] 1 mg tablet 03-11 tablet by it y of 00:00: 00:00 mouth [place] 00 :00 twice Medical daily as Branch needed for anxiety. clonazePAM 2021-02- No [id number] Take 1 [facility] 1 mg tablet 03-11 tablet by it y of 00:00: 00:00 mouth [place] 00 :00 twice Medical daily as Branch needed for anxiety. DULoxetine 2021-02- No [id number] 60mg Take 1 [facility] 60 mg 1-28 12-27 capsule by ity of capsule 00:00: 00:00 mouth in [place] 00 :00 the Medical morning Branch and 1 capsule in the evening. DULoxetine 2021-02- No [id number] 60mg Take 1 [facility] 60 mg 1-28 12-27 capsule by ity of capsule 00:00: 00:00 mouth in [place] 00 :00 the Medical morning Branch and 1 capsule in the evening. DULoxetine 2021-02- No [id number] 60mg Take 1 [facility] 60 mg 1-28 12-27 capsule by ity of capsule 00:00: 00:00 mouth in [place] 00 :00 the Medical morning Branch and 1 capsule in the evening. DULoxetine 2021-02- No [id number] 60mg Take 1 [facility] 60 mg 1-28 12-27 capsule by it[facility] of capsule 00:00: 00:00 mouth in [place] 00 :00 the Medical morning Branch and 1 capsule in the evening. DULoxetine 2021-02- No [id number] 60mg Take 1 [facility] 60 mg 1-28 12-27 capsule by ity of capsule 00:00: 00:00 mouth in [place] 00 :00 the Medical morning Branch and 1 capsule in the evening. traZODone 2021-02 Yes [id number] 50mg Take 1 [facility] 50 mg 1-22 tablet by it[facility] of tablet 00:00: mouth at [place] [address] bedtime. Medical May cut Branch tablet in half. traZODone 2021-02 Yes [id number] 50mg Take 1 [facility] 50 mg 1-22 tablet by it[facility] of tablet 00:00: mouth at [place] 00 bedtime. Medical May cut Branch tablet in half. traZODone 2021-02 Yes [id number] 50mg Take 1 [facility] 50 mg 1-22 tablet by it[facility] of tablet 00:00: mouth at [place] [address] bedtime. Medical May cut Branch tablet in half. traZODone 2021-02- No [id number] 50mg Take 1 [facility] 50 mg 1-22 11-30 tablet by it[facility] of tablet 00:00: 00:00 mouth at [place] 00 :00 bedtime. Medical May cut Branch tablet in half. traZODone 2021-02- No [id number] 50mg Take 1 [facility] 50 mg 1-22 11-30 tablet by ity of tablet 00:00: 00:00 mouth at [place] 00 :00 bedtime. Medical May cut Branch tablet in half. traZODone 2021-02- No [id number] 50mg Take 1 [facility] 50 mg 1-22 11-30 tablet by ity of tablet 00:00: 00:00 mouth at [place] 00 :00 bedtime. Medical May cut Branch tablet in half. traZODone 2021-02- No [id number] 50mg Take 1 [facility] 50 mg 1-22 11-30 tablet by it[facility] of tablet 00:00: 00:00 mouth at [place] 00 :00 bedtime. Medical May cut Branch tablet in half. traZODone 2021-02- No [id number] 50mg Take 1 [facility] 50 mg 1-22 11-30 tablet by it[facility] of tablet 00:00: 00:00 mouth at [place] 00 :00 bedtime. Medical May cut Branch tablet in half. DULoxetine 2021-02 Yes [id number] 60mg Take 1 [facility] 60 mg 0-25 capsule by [facility] of capsule 00:00: mouth in [place] 00 the Medical morning Branch and 1 capsule in the evening. DULoxetine 2021-02 Yes [id number] 60mg Take 1 [facility] 60 mg 0-25 capsule by it[facility] of capsule 00:00: mouth in [place] 00 the Medical morning Branch and 1 capsule in the evening. DULoxetine 2021-02 Yes [id number] 60mg Take 1 [facility] 60 mg 0-25 capsule by [facility] of capsule 00:00: mouth in [place] 00 the Medical morning Branch and 1 capsule in the evening. DULoxetine 2021-02- No [id number] 60mg Take 1 [facility] 60 mg 0-25 11-28 capsule by it[facility] of capsule 00:00: 00:00 mouth in [place] 00 :00 the Medical morning Branch and 1 capsule in the evening. DULoxetine 2021-02- No [id number] 60mg Take 1 [facility] 60 mg 0-25 11-28 capsule by it[facility] of capsule 00:00: 00:00 mouth in [place] 00 :00 the Medical morning Branch and 1 capsule in the evening. DULoxetine 2021-02- No [id number] 60mg Take 1 [facility] 60 mg 0-25 11-28 capsule by it[facility] of capsule 00:00: 00:00 mouth in [place] 00 :00 the Medical morning Branch and 1 capsule in the evening. DULoxetine 2021-02- No [id number] 60mg Take 1 [facility] 60 mg 0-25 11-28 capsule by it[facility] of capsule 00:00: 00:00 mouth in [place] 00 :00 the Medical morning Branch and 1 capsule in the evening. DULoxetine 2021-02- No [id number] 60mg Take 1 [facility] 60 mg 0-25 11-28 capsule by ity of capsule 00:00: 00:00 mouth in [place] 00 :00 the Medical morning Branch and 1 capsule in the evening. clonazePAM 2021-02 Yes [id number] Take 1 [facility] 1 mg tablet 0-20 tablet by ity of 00:00: mouth [place] 00 twice Medical daily as Branch needed for anxiety. lithium 600 2021-02 Yes [id number] 600mg Take 1 [facility] mg capsule 0-20 capsule by ity of 00:00: mouth in [place] 00 the Medical morning Branch and 1 capsule in the evening. lamoTRIgine 2021-02 Yes [id number] 50mg Take 2 [facility] 25 mg 0-20 tablets by ity of tablet 00:00: mouth in [place] 00 the Medical morning Branch and 2 tablets in the evening. clonazePAM 2021-02 Yes [id number] Take 1 [facility] 1 mg tablet 0-20 tablet by ity of 00:00: mouth [place] [address] twice Medical daily as Branch needed for anxiety. lithium 600 2021-02 Yes [id number] 600mg Take 1 [facility] mg capsule 0-20 capsule by ity of 00:00: mouth in [place] [address] the [facility] morning Branch and 1 capsule in the evening. lamoTRIgine 2021-02 Yes [id number] 50mg Take 2 [facility] 25 mg 0-20 tablets by ity of tablet 00:00: mouth in [place] [address] the [facility] morning Branch and 2 tablets in the evening. clonazePAM 2021-02 Yes [id number] Take 1 [facility] 1 mg tablet 0-20 tablet by ity of 00:00: mouth [place] [address] twice Medical daily as Branch needed for anxiety. lithium 600 2021-02 Yes [id number] 600mg Take 1 [facility] mg capsule 0-20 capsule by ity of 00:00: mouth in [place] [address] the [facility] morning Branch and 1 capsule in the evening. lamoTRIgine 2021-02 Yes [id number] 50mg Take 2 [facility] 25 mg 0-20 tablets by ity of tablet 00:00: mouth in [place] [address] the [facility] morning [place] and 2 tablets in the evening. lithium 600 2021-02 Yes [id number] 600mg Take 1 [facility] mg capsule 0-20 capsule by ity of 00:00: mouth in [place] [address] the [facility] morning Branch and 1 capsule in the evening. lamoTRIgine 2021- Yes [id number] 50mg Take 2 [facility] 25 mg 0-20 tablets by ity of tablet 00:00: mouth in [place] [address] the [facility] morning Branch and 2 tablets in the evening. lithium 600 2021- Yes [id number] 600mg Take 1 [facility] mg capsule 0-20 capsule by ity of 00:00: mouth in [place] [address] the [facility] morning [place] and 1 capsule in the evening. lamoTRIgine 2021- Yes [id number] 50mg Take 2 [facility] 25 mg 0-20 tablets by ity of tablet 00:00: mouth in [place] [address] the [facility] morning Branch and 2 tablets in the evening. lithium 600 2021-02 Yes [id number] 600mg Take 1 [facility] mg capsule 0-20 capsule by ity of 00:00: mouth in [place] 00 the Medical morning Branch and 1 capsule in the evening. lithium 600 2021-02 Yes [id number] 600mg Take 1 [facility] mg capsule 0-20 capsule by ity of 00:00: mouth in [place] 00 the Medical morning Branch and 1 capsule in the evening. lithium 600 2021-02 Yes [id number] 600mg Take 1 [facility] mg capsule 0-20 capsule by ity of 00:00: mouth in [place] 00 the Medical morning Branch and 1 capsule in the evening. lithium 600 2021-02 Yes [id number] 600mg Take 1 [facility] mg capsule 0-20 capsule by ity of 00:00: mouth in [place] 00 the Medical morning Branch and 1 capsule in the evening. lithium 600 2021-02 Yes [id number] 600mg Take 1 [facility] mg capsule 0-20 capsule by ity of 00:00: mouth in [place] 00 the Medical morning Branch and 1 capsule in the evening. lithium 600 2021-02- No [id number] 600mg Take 1 [facility] mg capsule 0-20 01-04 capsule by it y of 00:00: 00:00 mouth in [place] 00 :00 the Medical morning Branch and 1 capsule in the evening. lithium 600 2021-02- No [id number] 600mg Take 1 [facility] mg capsule 0-20 01-04 capsule by it y of 00:00: 00:00 mouth in [place] 00 :00 the Medical morning Branch and 1 capsule in the evening. lithium 600 2021-02- No [id number] 600mg Take 1 [facility] mg capsule 0-20 01-04 capsule by it y of 00:00: 00:00 mouth in [place] 00 :00 the Medical morning Branch and 1 capsule in the evening. lithium 600 2021-02- No [id number] 600mg Take 1 [facility] mg capsule 0-20 01-04 capsule by it y of 00:00: 00:00 mouth in [place] 00 :00 the Medical morning Branch and 1 capsule in the evening. lithium 600 2021-02- No [id number] 600mg Take 1 [facility] mg capsule 0-20 01-04 capsule by it y of 00:00: 00:00 mouth in [place] 00 :00 the Medical morning Branch and 1 capsule in the evening. lithium 600 2021-02- No [id number] 600mg Take 1 [facility] mg capsule 0-20 01-04 capsule by it y of 00:00: 00:00 mouth in [place] 00 :00 the Medical morning Branch and 1 capsule in the evening. lithium 600 2021-02- No [id number] 600mg Take 1 [facility] mg capsule 0-20 -04 capsule by it y of 00:00: 00:00 mouth in [place] 00 :00 the Medical morning Branch and 1 capsule in the evening. lithium 600 2021-02- No [id number] 600mg Take 1 [facility] mg capsule 0-20 -04 capsule by it y of 00:00: 00:00 mouth in [place] 00 :00 the Medical morning Branch and 1 capsule in the evening. lamoTRIgine 2021-02- No [id number] 50mg Take 2 [facility] 25 mg 0-20 11-30 tablets by ity of tablet 00:00: 00:00 mouth in [place] 00 :00 the Medical morning Branch and 2 tablets in the evening. lamoTRIgine 2021-02- No [id number] 50mg Take 2 [facility] 25 mg 0-20 11-30 tablets by ity of tablet 00:00: 00:00 mouth in [place] 00 :00 the Medical morning Branch and 2 tablets in the evening. lamoTRIgine 2021-02- No [id number] 50mg Take 2 [facility] 25 mg 0-20 11-30 tablets by ity of tablet 00:00: 00:00 mouth in [place] 00 :00 the Medical morning Branch and 2 tablets in the evening. lamoTRIgine 2021-02- No [id number] 50mg Take 2 [facility] 25 mg 0-20 11-30 tablets by ity of tablet 00:00: 00:00 mouth in [place] 00 :00 the Medical morning Branch and 2 tablets in the evening. lamoTRIgine 2021-02- No [id number] 50mg Take 2 [facility] 25 mg 0-20 11-30 tablets by ity of tablet 00:00: 00:00 mouth in [place] 00 :00 the Medical morning Branch and 2 tablets in the evening. clonazePAM 2021-02- No [id number] Take 1 [facility] 1 mg tablet 0-20 11-28 tablet by it y of 00:00: 00:00 mouth [place] 00 :00 twice Medical daily as Branch needed for anxiety. clonazePAM 2021-02- No [id number] Take 1 [facility] 1 mg tablet 0-20 11-28 tablet by it y of 00:00: 00:00 mouth [place] 00 :00 twice Medical daily as Branch needed for anxiety. clonazePAM 2021-02- No [id number] Take 1 [facility] 1 mg tablet 0-20 11-28 tablet by it y of 00:00: 00:00 mouth [place] 00 :00 twice Medical daily as Branch needed for anxiety. clonazePAM 2021-02 No [id number] Take 1 [facility] 1 mg tablet 0-20 -28 tablet by it y of 00:00: 00:00 mouth [place] 00 :00 twice Medical daily as Branch needed for anxiety. clonazePAM 2021-02- No [id number] Take 1 [facility] 1 mg tablet 0-20 -28 tablet by it y of 00:00: 00:00 mouth [place] 00 :00 twice Medical daily as Branch needed for anxiety. lamoTRIgine Yes [id number] 50mg Take 2 [facility] 25 mg 8-26 tablets by ity of tablet 00:00: mouth in [place] 00 the Medical morning Branch and 2 tablets in the evening. lamoTRIgine 2021- No [id number] 50mg Take 2 [facility] 25 mg 8-26 10-19 tablets by ity of tablet 00:00: 00:00 mouth in [place] 00 :00 the Medical morning Branch and 2 tablets in the evening. lamoTRIgine 2021- No [id number] 50mg Take 2 [facility] 25 mg 8-26 10-19 tablets by ity of tablet 00:00: 00:00 mouth in [place] 00 :00 the Medical morning Branch and 2 tablets in the evening. clonazePAM 2021-0 Yes [id number] Take no [facility] 1 mg tablet 8-25 more than ity of 00:00: 1 mg twice [place] 00 daily as Medical needed for Branch anxiety lithium 600 2021-0 Yes [id number] 600mg Take 1 [facility] mg capsule 8-25 capsule by ity of 00:00: mouth in [place] 00 the Medical morning Branch and 1 capsule in the evening. clonazePAM 2021-2021- No [id number] Take no [facility] 1 mg tablet 8-25 10-19 more than it y of 00:00: 00:00 1 mg twice [place] 00 :00 daily as Medical needed for Branch anxiety lithium 600 2021- No [id number] 600mg Take 1 [facility] mg capsule 8-25 10-19 capsule by it y of 00:00: 00:00 mouth in [place] 00 :00 the Medical morning Branch and 1 capsule in the evening. clonazePAM 2021- No [id number] Take no [facility] 1 mg tablet 8-25 10-19 more than it y of 00:00: 00:00 1 mg twice [place] 00 :00 daily as Medical needed for Branch anxiety lithium 600 2021- No [id number] 600mg Take 1 [facility] mg capsule 8-25 10-19 capsule by it y of 00:00: 00:00 mouth in [place] 00 :00 the Medical morning Branch and 1 capsule in the evening. Lamotrigine 2021- No [id number] 50mg Take 1 [facility] 50 mg 8-25 08-26 tablet by ity of tablet 00:00: 00:00 mouth in [place] 00 :00 the Medical morning Branch and 1 tablet in the evening. Lamotrigine 2021- No [id number] 50mg Take 1 [facility] 50 mg 8-11 08-25 tablet by ity of tablet 00:00: 00:00 mouth in [place] 00 :00 the Medical morning Branch and 1 tablet in the evening. DULoxetine Yes [id number] 60mg Take 1 [facility] 60 mg 7-27 capsule by ity of capsule 00:00: mouth in [place] 00 the Medical morning Branch and 1 capsule in the evening. DULoxetine 2021- No [id number] 60mg Take 1 [facility] 60 mg 7-27 10-24 capsule by ity of capsule 00:00: 00:00 mouth in [place] 00 :00 the Medical morning Branch and 1 capsule in the evening. DULoxetine 2021- No [id number] 60mg Take 1 [facility] 60 mg 7-27 10-24 capsule by ity of capsule 00:00: 00:00 mouth in [place] 00 :00 the Medical morning Branch and 1 capsule in the evening. DULoxetine 2021- No [id number] 60mg Take 1 [facility] 60 mg 7-27 10-24 capsule by ity of capsule 00:00: 00:00 mouth in [place] 00 :00 the Medical morning Branch and 1 capsule in the evening. Lamotrigine 2021- No [id number] 50mg Take 1 [facility] 50 mg 7-18 08-11 tablet by ity of tablet 00:00: 00:00 mouth in [place] 00 :00 the Medical morning Branch and 1 tablet in the evening. lithium 600 2021-0 2021- No [id number] 600mg Take 1 [facility] mg capsule 7-13 08-25 capsule by it y of 00:00: 00:00 mouth in [place] 00 :00 the Medical morning Branch and 1 capsule in the evening. traZODone 2021-0 Yes [id number] 50mg Take 1 [facility] n[facility] 50 mg 6-28 tablet by ity of tablet 00:00: mouth at [place] 00 bedtime. Medical May cut Branch tablet in half. DULoxetine 0 Yes [id number] 60mg Take 1 [facility] nivers 60 mg 6-28 capsule by ity of capsule 00:00: mouth 2 [place] 00 (two) Medical times Branch daily. traZODone 0 Yes [id number] 50mg Take 1 [facility] nivers 50 mg 6-28 tablet by ity of tablet 00:00: mouth at [place] [address] bedtime. Medical May cut Branch tablet in half. DULoxetine 0 Yes [id number] 60mg Take 1 [facility] nivers 60 mg 6-28 capsule by ity of capsule 00:00: mouth 2 [place] 00 (two) Medical times Branch daily. traZODone 2021-0 Yes [id number] 50mg Take 1 [facility] nivers 50 mg 6-28 tablet by ity of tablet 00:00: mouth at [place] [address] bedtime. Medical May cut Branch tablet in half. DULoxetine 2021-0 Yes [id number] 60mg Take 1 [facility] nivers 60 mg 6-28 capsule by ity of capsule 00:00: mouth 2 [place] 00 (two) Medical times Branch daily. DULoxetine 0 Yes [id number] 60mg Take 1 [facility] nivers 60 mg 6-28 capsule by ity of capsule 00:00: mouth 2 [place] 00 (two) Medical times Branch daily. traZODone 2021-2021- No [id number] 50mg Take 1 [facility] 50 mg 6-28 11-21 tablet by ity of tablet 00:00: 00:00 mouth at [place] 00 :00 bedtime. Medical May cut Branch tablet in half. traZODone 2021- No [id number] 50mg Take 1 [facility] 50 mg 6-28 11-21 tablet by ity of tablet 00:00: 00:00 mouth at [place] 00 :00 bedtime. Medical May cut Branch tablet in half. traZODone 2021- No [id number] 50mg Take 1 [facility] 50 mg 6-28 11-21 tablet by ity of tablet 00:00: 00:00 mouth at [place] 00 :00 bedtime. Medical May cut Branch tablet in half. traZODone 2021- No [id number] 50mg Take 1 [facility] 50 mg 6-28 11-21 tablet by ity of tablet 00:00: 00:00 mouth at [place] 00 :00 bedtime. Medical May cut Branch tablet in half. traZODone 2021- No [id number] 50mg Take 1 [facility] 50 mg 6-28 11-21 tablet by ity of tablet 00:00: 00:00 mouth at [place] 00 :00 bedtime. Medical May cut Branch tablet in half. clonazePAM 2021- No [id number] Take no [facility] 1 mg tablet 6-28 08-25 more than it y of 00:00: 00:00 1 mg twice [place] 00 :00 daily as Medical needed for Branch anxiety DULoxetine 2021- No [id number] 60mg Take 1 [facility] 60 mg 4-14 06-28 capsule by ity of capsule 00:00: 00:00 mouth 2 [place] 00 :00 (two) Medical times Branch daily. traZODone 2021- No [id number] 50mg Take 1 [facility] 50 mg 4-14 06-28 tablet by ity of tablet 00:00: 00:00 mouth at [place] 00 :00 bedtime. Medical May cut Branch tablet in half. DULoxetine 2021- No [id number] 60mg Take 1 [facility] 60 mg 4-14 06-28 capsule by ity of capsule 00:00: 00:00 mouth 2 [place] 00 :00 (two) Medical times Branch daily. traZODone 2021- No [id number] 50mg Take 1 [facility] 50 mg 4-14 06-28 tablet by ity of tablet 00:00: 00:00 mouth at [place] 00 :00 bedtime. Medical May cut Branch tablet in half. vitamin 2021-0 Yes [id number] 1000ug Take 1 U nivers B-12 1,000 4-11 tablet by ity of mcg tablet 00:00: mouth [place] 00 daily. Medical Branch cyanocobala 2021-0 Yes [id number] 1000ug 1 mL by [facility] min 1,000 4-11 [facility] ity of mcg/mL 00:00: lar route [place] injection 00 weekly. Medical Branch vitamin 2021-0 Yes [id number] 1000ug Take 1 U nivers B-12 1,000 4-11 tablet by ity of mcg tablet 00:00: mouth [place] 00 daily. Medical Branch cyanocobala 2021-0 Yes [id number] 1000ug 1 mL by [facility] min 1,000 4-11 [facility] ity of mcg/mL 00:00: lar route [place] injection 00 weekly. [facility] Branch vitamin 2021-0 Yes [id number] 1000ug Take 1 U nivers B-12 1,000 4-11 tablet by ity of mcg tablet 00:00: mouth [place] 00 daily. Medical Branch cyanocobala 2021-0 Yes [id number] 1000ug 1 mL by [facility] min 1,000 4-11 [facility] ity of mcg/mL 00:00: lar route [place] injection 00 weekly. Medical Branch vitamin 2021-0 Yes [id number] 1000ug Take 1 U nivers B-12 1,000 4-11 tablet by ity of mcg tablet 00:00: mouth [place] 00 daily. [facility] Branch cyanocobala 2021-0 Yes [id number] 1000ug 1 mL by [facility] min 1,000 4-11 [facility] ity of mcg/mL 00:00: lar route [place] injection 00 weekly. [facility] Branch vitamin 2021-0 Yes [id number] 1000ug Take 1 U nivers B-12 1,000 4-11 tablet by ity of mcg tablet 00:00: mouth [place] 00 daily. [facility] Branch cyanocobala 2021-0 Yes [id number] 1000ug 1 mL by [facility] min 1,000 4-11 [facility] ity of mcg/mL 00:00: lar route [place] injection 00 weekly. [facility] vitamin 2021-0 Yes [id number] 1000ug Take 1 U nivers B-12 1,000 4-11 tablet by ity of mcg tablet 00:00: mouth [place] 00 daily. Medical Branch cyanocobala 2021-0 Yes [id number] 1000ug 1 mL by [facility] min 1,000 4-11 [facility] ity of mcg/mL 00:00: lar route [place] injection 00 weekly. Medical Branch vitamin 2021-0 Yes [id number] 1000ug Take 1 U nivers B-12 1,000 4-11 tablet by ity of mcg tablet 00:00: mouth [place] 00 daily. Medical Branch cyanocobala 2021-0 Yes [id number] 1000ug 1 mL by [facility] min 1,000 4-11 [facility] ity of mcg/mL 00:00: lar route [place] injection 00 weekly. Medical Branch vitamin 2021-0 Yes [id number] 1000ug Take 1 U nivers B-12 1,000 4-11 tablet by ity of mcg tablet 00:00: mouth [place] 00 daily. Medical Branch cyanocobala 2021-0 Yes [id number] 1000ug 1 mL by [facility] min 1,000 4-11 [facility] ity of mcg/mL 00:00: lar route [place] injection 00 weekly. Medical Branch vitamin 2021-0 Yes [id number] 1000ug Take 1 U nivers B-12 1,000 4-11 tablet by ity of mcg tablet 00:00: mouth [place] 00 daily. Medical Branch cyanocobala 2021-0 Yes [id number] 1000ug 1 mL by [facility] min 1,000 4-11 [facility] ity of mcg/mL 00:00: lar route [place] injection 00 weekly. Medical Branch vitamin 2021-0 Yes [id number] 1000ug Take 1 U nivers B-12 1,000 4-11 tablet by ity of mcg tablet 00:00: mouth [place] 00 daily. Medical Branch cyanocobala 2021-0 Yes [id number] 1000ug 1 mL by [facility] min 1,000 4-11 [facility]y of mcg/mL 00:00: lar route [place] injection 00 weekly. Medical Branch vitamin 2021-0 Yes [id number] 1000ug Take 1 U nivers B-12 1,000 4-11 tablet by ity of mcg tablet 00:00: mouth [place] 00 daily. Medical Branch cyanocobala 2021-0 Yes [id number] 1000ug 1 mL by [facility] min 1,000 4-11 [facility]y of mcg/mL 00:00: lar route [place] injection 00 weekly. Medical Branch vitamin 2021-0 Yes [id number] 1000ug Take 1 U nivers B-12 1,000 4-11 tablet by ity of mcg tablet 00:00: mouth [place] 00 daily. Medical Branch cyanocobala 2021-0 Yes [id number] 1000ug 1 mL by [facility] min 1,000 4-11 [facility]y of mcg/mL 00:00: lar route [place] injection 00 weekly. Medical Branch vitamin 2021-0 Yes [id number] 1000ug Take 1 U nivers B-12 1,000 4-11 tablet by ity of mcg tablet 00:00: mouth [place] 00 daily. Medical Branch cyanocobala 2021-0 Yes [id number] 1000ug 1 mL by [facility] min 1,000 4-11 [facility] ity of mcg/mL 00:00: lar route [place] injection 00 weekly. Medical Branch vitamin 2021-0 Yes [id number] 1000ug Take 1 U nivers B-12 1,000 4-11 tablet by ity of mcg tablet 00:00: mouth [place] 00 daily. Medical Branch cyanocobala 2021-0 Yes [id number] 1000ug 1 mL by [facility] min 1,000 4-11 [facility] ity of mcg/mL 00:00: lar route [place] injection 00 weekly. Medical Branch vitamin 2021-0 Yes [id number] 1000ug Take 1 U nivers B-12 1,000 4-11 tablet by ity of mcg tablet 00:00: mouth [place] 00 daily. Medical Branch cyanocobala 2021-0 Yes [id number] 1000ug 1 mL by [facility] min 1,000 4-11 [facility] ity of mcg/mL 00:00: lar route [place] injection 00 weekly. Medical Branch vitamin 2021-0 Yes [id number] 1000ug Take 1 U nivers B-12 1,000 4-11 tablet by ity of mcg tablet 00:00: mouth [place] 00 daily. Medical Branch cyanocobala 2021-0 Yes [id number] 1000ug 1 mL by [facility] min 1,000 4-11 [facility] ity of mcg/mL 00:00: lar route [place] injection 00 weekly. [facility] Branch vitamin 2021-0 Yes [id number] 1000ug Take 1 U nivers B-12 1,000 4-11 tablet by ity of mcg tablet 00:00: mouth [place] 00 daily. Medical Branch cyanocobala 2021-0 Yes [id number] 1000ug 1 mL by [facility] min 1,000 4-11 [facility] ity of mcg/mL 00:00: lar route [place] injection 00 weekly. Medical Branch vitamin 2021-0 Yes [id number] 1000ug Take 1 U nivers B-12 1,000 4-11 tablet by ity of mcg tablet 00:00: mouth [place] 00 daily. Medical Branch cyanocobala 2021-0 Yes [id number] 1000ug 1 mL by [facility] min 1,000 4-11 [facility] ity of mcg/mL 00:00: lar route [place] injection 00 weekly. Medical Branch vitamin 2021-0 Yes [id number] 1000ug Take 1 U nivers B-12 1,000 4-11 tablet by ity of mcg tablet 00:00: mouth [place] 00 daily. Medical Branch cyanocobala 2021-0 Yes [id number] 1000ug 1 mL by [facility] min 1,000 4-11 [facility] ity of mcg/mL 00:00: lar route [place] injection 00 weekly. Medical Branch vitamin 2021-0 Yes [id number] 1000ug Take 1 U nivers B-12 1,000 4-11 tablet by ity of mcg tablet 00:00: mouth [place] 00 daily. Medical Branch cyanocobala 2021-0 Yes [id number] 1000ug 1 mL by [facility] min 1,000 4-11 [facility] ity of mcg/mL 00:00: lar route [place] injection 00 weekly. Medical Branch vitamin 2021-0 Yes [id number] 1000ug Take 1 U nivers B-12 1,000 4-11 tablet by ity of mcg tablet 00:00: mouth [place] 00 daily. Medical Branch cyanocobala 2021-0 Yes [id number] 1000ug 1 mL by [facility] min 1,000 4-11 [facility] ity of mcg/mL 00:00: lar route [place] injection 00 weekly. Medical Branch vitamin 2021-0 Yes [id number] 1000ug Take 1 U nivers B-12 1,000 4-11 tablet by ity of mcg tablet 00:00: mouth [place] 00 daily. [facility] Branch cyanocobala 2021-0 Yes [id number] 1000ug 1 mL by [facility] min 1,000 4-11 [facility] ity of mcg/mL 00:00: lar route [place] injection 00 weekly. Medical Branch vitamin 2021-0 Yes [id number] 1000ug Take 1 U nivers B-12 1,000 4-11 tablet by ity of mcg tablet 00:00: mouth [place] 00 daily. Medical Branch cyanocobala 2021-0 Yes [id number] 1000ug 1 mL by [facility] min 1,000 4-11 [facility] ity of mcg/mL 00:00: lar route [place] injection 00 weekly. Medical Branch vitamin 2021-0 Yes [id number] 1000ug Take 1 U nivers B-12 1,000 4-11 tablet by ity of mcg tablet 00:00: mouth [place] 00 daily. Medical Branch cyanocobala 2021-0 Yes [id number] 1000ug 1 mL by [facility] min 1,000 4-11 [facility] ity of mcg/mL 00:00: lar route [place] injection 00 weekly. Medical Branch vitamin 2021-0 Yes [id number] 1000ug Take 1 U nivers B-12 1,000 4-11 tablet by ity of mcg tablet 00:00: mouth [place] 00 daily. Medical Branch cyanocobala 2021-0 Yes [id number] 1000ug 1 mL by [facility] min 1,000 4-11 [facility] of mcg/mL 00:00: lar route [place] injection 00 weekly. [facility] vitamin 2021-0 Yes [id number] 1000ug Take 1 [facility] n[facility] B-12 1,000 4-11 tablet by ity of mcg tablet 00:00: mouth [place] 00 daily. [facility] cyanocobala 2021-0 Yes [id number] 1000ug 1 mL by [facility] min 1,000 4-11 [facility] of mcg/mL 00:00: lar route [place] injection 00 weekly. [facility] vitamin 2021-0 Yes [id number] 1000ug Take 1 [facility] n[facility] B-12 1,000 4-11 tablet by [facility]y of mcg tablet 00:00: mouth [place] 00 daily. [facility] cyanocobala 2021-0 Yes [id number] 1000ug 1 mL by [facility] min 1,000 4-11 [facility] of mcg/mL 00:00: lar route [place] injection 00 weekly. [facility] vitamin 2021-0 Yes [id number] 1000ug Take 1 [facility] n[facility] B-12 1,000 4-11 tablet by [facility] of mcg tablet 00:00: mouth [place] 00 daily. [facility] cyanocobala 2021-0 Yes [id number] 1000ug 1 mL by [facility] min 1,000 4-11 [facility] of mcg/mL 00:00: lar route [place] injection 00 weekly. [facility] vitamin 2021-0 Yes [id number] 1000ug Take 1 [facility] B-12 1,000 4-11 tablet by [facility] of mcg tablet 00:00: mouth [place] 00 daily. [facility] cyanocobala 2021-0 Yes [id number] 1000ug 1 mL by [facility] min 1,000 4-11 [facility] of mcg/mL 00:00: lar route [place] injection 00 weekly. [facility] vitamin 2021-0 Yes [id number] 1000ug Take 1 [facility] nivers B-12 1,000 4-11 tablet by [facility] of mcg tablet 00:00: mouth [place] 00 daily. [facility] cyanocobala 2021-0 Yes [id number] 1000ug 1 mL by [facility] min 1,000 4-11 [facility] of mcg/mL 00:00: lar route [place] injection 00 weekly. [facility] vitamin 2021-0 Yes [id number] 1000ug Take 1 [facility] B-12 1,000 4-11 tablet by [facility] of mcg tablet 00:00: mouth [place] 00 daily. [facility] cyanocobala 2021-0 Yes [id number] 1000ug 1 mL by [facility] min 1,000 4-11 [facility] of mcg/mL 00:00: lar route [place] injection 00 weekly. [facility] vitamin 2021-0 Yes [id number] 1000ug Take 1 [facility] n[facility] B-12 1,000 4-11 tablet by [facility] of mcg tablet 00:00: mouth [place] 00 daily. [facility] cyanocobala 2021-0 Yes [id number] 1000ug 1 mL by [facility] min 1,000 4-11 [facility] of mcg/mL 00:00: lar route [place] injection 00 weekly. [facility] vitamin 2021-0 Yes [id number] 1000ug Take 1 [facility] nivers B-12 1,000 4-11 tablet by [facility]y of mcg tablet 00:00: mouth [place] 00 daily. [facility] cyanocobala 2021-0 Yes [id number] 1000ug 1 mL by [facility] min 1,000 4-11 [facility] of mcg/mL 00:00: lar route [place] injection 00 weekly. [facility] vitamin 2021-0 Yes [id number] 1000ug Take 1 [facility] n[facility] B-12 1,000 4-11 tablet by [facility] of mcg tablet 00:00: mouth [place] 00 daily. [facility] cyanocobala 2021-0 Yes [id number] 1000ug 1 mL by [facility] min 1,000 4-11 [facility] of mcg/mL 00:00: lar route [place] injection 00 weekly. [facility] vitamin 2021-0 Yes [id number] 1000ug Take 1 [facility] nivers B-12 1,000 4-11 tablet by [facility] of mcg tablet 00:00: mouth [place] 00 daily. [facility] cyanocobala 2021-0 Yes [id number] 1000ug 1 mL by [facility] min 1,000 4-11 [facility] of mcg/mL 00:00: lar route [place] injection 00 weekly. [facility] vitamin 2021-0 Yes [id number] 1000ug Take 1 [facility] nivers B-12 1,000 4-11 tablet by [facility] of mcg tablet 00:00: mouth [place] 00 daily. [facility] cyanocobala 2021-0 Yes [id number] 1000ug 1 mL by [facility] min 1,000 4-11 [facility] of mcg/mL 00:00: lar route [place] injection 00 weekly. [facility] vitamin 2021-0 Yes [id number] 1000ug Take 1 [facility] n[facility] B-12 1,000 4-11 tablet by [facility] of mcg tablet 00:00: mouth [place] 00 daily. [facility] cyanocobala 2021-0 Yes [id number] 1000ug 1 mL by [facility] min 1,000 4-11 [facility] of mcg/mL 00:00: lar route [place] injection 00 weekly. [facility] vitamin 2021-0 Yes [id number] 1000ug Take 1 [facility] nivers B-12 1,000 4-11 tablet by [facility]y of mcg tablet 00:00: mouth [place] 00 daily. [facility] cyanocobala 2021-0 Yes [id number] 1000ug 1 mL by [facility] min 1,000 4-11 [facility] of mcg/mL 00:00: lar route [place] injection 00 weekly. [facility] vitamin 2022-0 Yes [id number] 1000ug Take 1 [facility] nivers B-12 1,000 4-11 tablet by [facility]y of mcg tablet 00:00: mouth [place] 00 daily. [facility] cyanocobala 2021-0 Yes [id number] 1000ug 1 mL by [facility] min 1,000 4-11 [facility] of mcg/mL 00:00: lar route [place] injection 00 weekly. [facility] vitamin 2021-0 Yes [id number] 1000ug Take 1 [facility] nivers B-12 1,000 4-11 tablet by [facility]y of mcg tablet 00:00: mouth [place] 00 daily. [facility] cyanocobala 2021-0 Yes [id number] 1000ug 1 mL by [facility] min 1,000 4-11 [facility] of mcg/mL 00:00: lar route [place] injection 00 weekly. [facility] vitamin 2021-0 Yes [id number] 1000ug Take 1 [facility] nivers B-12 1,000 4-11 tablet by [facility]y of mcg tablet 00:00: mouth [place] 00 daily. [facility] cyanocobala 2021-0 Yes [id number] 1000ug 1 mL by [facility] min 1,000 4-11 [facility] of mcg/mL 00:00: lar route [place] injection 00 weekly. [facility] vitamin 2021-0 Yes [id number] 1000ug Take 1 [facility] nivers B-12 1,000 4-11 tablet by [facility] of mcg tablet 00:00: mouth [place] 00 daily. [facility] cyanocobala 2021-0 Yes [id number] 1000ug 1 mL by [facility] min 1,000 4-11 [facility] of mcg/mL 00:00: lar route [place] injection 00 weekly. [facility] vitamin 2021-0 Yes [id number] 1000ug Take 1 [facility] nivers B-12 1,000 4-11 tablet by [facility]y of mcg tablet 00:00: mouth [place] 00 daily. [facility] cyanocobala 2021-0 Yes [id number] 1000ug 1 mL by [facility] min 1,000 4-11 [facility] of mcg/mL 00:00: lar route [place] injection 00 weekly. [facility] vitamin 2-0 Yes [id number] 1000ug Take 1 [facility] nivers B-12 1,000 4-11 tablet by [facility]y of mcg tablet 00:00: mouth [place] 00 daily. [facility] cyanocobala 2021-0 Yes [id number] 1000ug 1 mL by [facility] min 1,000 4-11 [facility] of mcg/mL 00:00: lar route [place] injection 00 weekly. [facility] vitamin 2021-0 Yes [id number] 1000ug Take 1 [facility]ivers B-12 1,000 4-11 tablet by [facility]y of mcg tablet 00:00: mouth [place] 00 daily. [facility] cyanocobala 2021-0 Yes [id number] 1000ug 1 mL by [facility] min 1,000 4-11 [facility] of mcg/mL 00:00: lar route [place] injection 00 weekly. [facility] vitamin 2021-0 Yes [id number] 1000ug Take 1 [facility] nivers B-12 1,000 4-11 tablet by [facility]y of mcg tablet 00:00: mouth [place] 00 daily. [facility] cyanocobala 2021-0 Yes [id number] 1000ug 1 mL by [facility] min 1,000 4-11 Intr[facility] of mcg/mL 00:00: lar route [place] injection 00 weekly. [facility] vitamin 2021-0 Yes [id number] 1000ug Take 1 [facility] nivers B-12 1,000 4-11 tablet by [facility]y of mcg tablet 00:00: mouth [place] 00 daily. [facility] cyanocobala 2021-0 Yes [id number] 1000ug 1 mL by [facility] min 1,000 4-11 Intr[facility] of mcg/mL 00:00: lar route [place] injection 00 weekly. [facility] vitamin 2021-0 Yes [id number] 1000ug Take 1 [facility] nivers B-12 1,000 4-11 tablet by [facility]y of mcg tablet 00:00: mouth [place] 00 daily. [facility] cyanocobala 2021-0 Yes [id number] 1000ug 1 mL by [facility] min 1,000 4-11 [facility] of mcg/mL 00:00: lar route [place] injection 00 weekly. [facility] vitamin 2021-0 Yes [id number] 1000ug Take 1 [facility] nivers B-12 1,000 4-11 tablet by [facility]y of mcg tablet 00:00: mouth [place] 00 daily. [facility] cyanocobala 2021-0 Yes [id number] 1000ug 1 mL by [facility] min 1,000 4-11 [facility] of mcg/mL 00:00: lar route [place] injection 00 weekly. [facility] vitamin 2021-0 Yes [id number] 1000ug Take 1 [facility] nivers B-12 1,000 4-11 tablet by [facility]y of mcg tablet 00:00: mouth [place] 00 daily. [facility] cyanocobala 2021-0 Yes [id number] 1000ug 1 mL by [facility] min 1,000 4-11 [facility] of mcg/mL 00:00: lar route [place] injection 00 weekly. [facility] vitamin 2021-0 Yes [id number] 1000ug Take 1 [facility] B-12 1,000 4-11 tablet by [facility] of mcg tablet 00:00: mouth [place] 00 daily. [facility] cyanocobala 2021-0 Yes [id number] 1000ug 1 mL by [facility] min 1,000 4-11 [facility] of mcg/mL 00:00: lar route [place] injection 00 weekly. [facility] vitamin 2021-0 Yes [id number] 1000ug Take 1 [facility] nivers B-12 1,000 4-11 tablet by [facility]y of mcg tablet 00:00: mouth [place] 00 daily. [facility] cyanocobala 2021-0 Yes [id number] 1000ug 1 mL by [facility] min 1,000 4-11 [facility] of mcg/mL 00:00: lar route [place] injection 00 weekly. [facility] vitamin 2021-0 Yes [id number] 1000ug Take 1 [facility] nivers B-12 1,000 4-11 tablet by [facility]y of mcg tablet 00:00: mouth [place] 00 daily. [facility] cyanocobala 2021-0 Yes [id number] 1000ug 1 mL by [facility] min 1,000 4-11 [facility] of mcg/mL 00:00: lar route [place] injection 00 weekly. [facility] vitamin 2021-0 Yes [id number] 1000ug Take 1 [facility] nivers B-12 1,000 4-11 tablet by [facility]y of mcg tablet 00:00: mouth [place] 00 daily. [facility] cyanocobala 2021-0 Yes [id number] 1000ug 1 mL by [facility] min 1,000 4-11 [facility] of mcg/mL 00:00: lar route [place] injection 00 weekly. [facility] vitamin 2021-0 Yes [id number] 1000ug Take 1 [facility] nivers B-12 1,000 4-11 tablet by [facility]y of mcg tablet 00:00: mouth [place] 00 daily. [facility] cyanocobala 0 Yes [id number] 1000ug 1 mL by [facility] min 1,000 4-11 Intr[facility] of mcg/mL 00:00: lar route [place] injection 00 weekly. [facility] vitamin 2021-0 Yes [id number] 1000ug Take 1 U nivers B-12 1,000 4-11 tablet by ity of mcg tablet 00:00: mouth [place] 00 daily. [facility] cyanocobala 0 Yes [id number] 1000ug 1 mL by [facility] min 1,000 4-11 Intr[facility] of mcg/mL 00:00: lar route [place] injection 00 weekly. [facility] vitamin 2021-0 Yes [id number] 1000ug Take 1 U nivers B-12 1,000 4-11 tablet by ity of mcg tablet 00:00: mouth [place] 00 daily. [facility] cyanocobala 0 Yes [id number] 1000ug 1 mL by [facility] min 1,000 4-11 Intr[facility] of mcg/mL 00:00: lar route [place] injection 00 weekly. [facility] vitamin 2021-0 Yes [id number] 1000ug Take 1 U nivers B-12 1,000 4-11 tablet by ity of mcg tablet 00:00: mouth [place] 00 daily. [facility] cyanocobala 0 Yes [id number] 1000ug 1 mL by [facility] min 1,000 4-11 Intr[facility] of mcg/mL 00:00: lar route [place] injection 00 weekly. [facility] vitamin 2021-0 2022- No [id number] 1000ug Take 1 [facility] B-12 1,000 4-11 09-22 tablet by ity of mcg tablet 00:00: 00:00 mouth [place] 00 :00 daily. [facility] cyanocobala 2021-0 2022- No [id number] 1000ug 1 mL by [facility] min 1,000 4-11 09-22 Intr[facility] ity of mcg/mL 00:00: 00:00 lar route [place] injection 00 :00 weekly. [facility] vitamin 2021-0 2022- No [id number] 1000ug Take 1 [facility] B-12 1,000 4-11 09-22 tablet by ity of mcg tablet 00:00: 00:00 mouth [place] 00 :00 daily. [facility] cyanocobala 2022- No [id number] 1000ug 1 mL by [facility] min 1,000 4-11 09-22 Intr[facility]y of mcg/mL 00:00: 00:00 lar route [place] injection 00 :00 weekly. [facility] vitamin 2022- No [id number] 1000ug Take 1 [facility] B-12 1,000 4-11 09-22 tablet by ity of mcg tablet 00:00: 00:00 mouth [place] 00 :00 daily. [facility] cyanocobala 2022- No [id number] 1000ug 1 mL by [facility] min 1,000 4-11 09-22 Intr[facility] of mcg/mL 00:00: 00:00 lar route [place] injection 00 :00 weekly. [facility] vitamin 2022- No [id number] 1000ug Take 1 [facility] B-12 1,000 4-11 09-22 tablet by ity of mcg tablet 00:00: 00:00 mouth [place] 00 :00 daily. [facility] cyanocobala 2022- No [id number] 1000ug 1 mL by [facility] min 1,000 4-11 09-22 Intramus[facility] ity of mcg/mL 00:00: 00:00 lar route [place] injection 00 :00 weekly. [facility] vitamin 2022- No [id number] 1000ug Take 1 [facility] B-12 1,000 4-11 09-22 tablet by ity of mcg tablet 00:00: 00:00 mouth [place] 00 :00 daily. [facility] cyanocobala 2022- No [id number] 1000ug 1 mL by [facility] min 1,000 4-11 09-22 Intramus[facility] ity of mcg/mL 00:00: 00:00 lar route [place] injection 00 :00 weekly. [facility] vitamin 2022- No [id number] 1000ug Take 1 [facility] B-12 1,000 4-11 09-22 tablet by ity of mcg tablet 00:00: 00:00 mouth [place] 00 :00 daily. [facility] cyanocobala 2022- No [id number] 1000ug 1 mL by [facility] min 1,000 4-11 09-22 Intramus[facility] ity of mcg/mL 00:00: 00:00 lar route [place] injection 00 :00 weekly. [facility] vitamin 2022- No [id number] 1000ug Take 1 [facility] B-12 1,000 4-11 09-22 tablet by ity of mcg tablet 00:00: 00:00 mouth [place] 00 :00 daily. [facility] cyanocobala 2022- No [id number] 1000ug 1 mL by [facility] min 1,000 4-12 21-22 Intramus[facility] ity of mcg/mL 00:00: 00:00 lar route [place] injection 00 :00 weekly. [facility] vitamin 2022- No [id number] 1000ug Take 1 [facility] B-12 1,000 4-12 21-22 tablet by ity of mcg tablet 00:00: 00:00 mouth [place] 00 :00 daily. [facility] cyanocobala 2022- No [id number] 1000ug 1 mL by [facility] min 1,000 4-12 21-22 Intramus[facility] ity of mcg/mL 00:00: 00:00 lar route [place] injection 00 :00 weekly. [facility] vitamin 2022- No [id number] 1000ug Take 1 [facility] B-12 1,000 4-12 21-22 tablet by ity of mcg tablet 00:00: 00:00 mouth [place] 00 :00 daily. [facility] cyanocobala 2022- No [id number] 1000ug 1 mL by [facility] min 1,000 4-12 21-22 Intramus[facility] ity of mcg/mL 00:00: 00:00 lar route [place] injection 00 :00 weekly. [facility] vitamin 2022- No [id number] 1000ug Take 1 [facility] B-12 1,000 4-12 21-22 tablet by ity of mcg tablet 00:00: 00:00 mouth [place] 00 :00 daily. [facility] cyanocobala 2022- No [id number] 1000ug 1 mL by [facility] min 1,000 4-12 21-22 Intramus[facility] ity of mcg/mL 00:00: 00:00 lar route [place] injection 00 :00 weekly. [facility] losartan Yes 20mg Take 20 mg [facility] vers potassium 4-05 by mouth. ity o f (LOSARTAN 09:24: [place] ORAL) 36 [facility] FUROSEMIDE 2022-0 Yes 40mg Take 40 mg U nivers ORAL 4-05 by mouth ity of 09:24: daily. [address] losartan 2021-0 Yes 20mg Take 20 mg [facility] vers potassium 4-05 by mouth. ity o f (LOSARTAN 09:24: [place] ORAL) [address] [place] [address] FUROSEMIDE 0 Yes 40mg Take 40 mg U nivers ORAL 4-05 by mouth ity of 09:24: daily. [address] losartan 2021-0 Yes 20mg Take 20 mg [facility] vers potassium 4-05 by mouth. ity o f (LOSARTAN 09:24: [place] ORAL) [address] [place] [address] FUROSEMIDE 0 Yes 40mg Take 40 mg U nivers ORAL 4-05 by mouth ity of 09:24: daily. [address] losartan 0 Yes 20mg Take 20 mg [facility] vers potassium 4-05 by mouth. ity o f (LOSARTAN 09:24: [place] ORAL) [address] [place] [address] FUROSEMIDE 0 Yes 40mg Take 40 mg U nivers ORAL 4-05 by mouth ity of 09:24: daily. [address] losartan 2021-0 Yes 20mg Take 20 mg [facility] vers potassium 4-05 by mouth. ity o f (LOSARTAN 09:24: [place] ORAL) [address] [place] [address] FUROSEMIDE 0 Yes 40mg Take 40 mg U nivers ORAL 4-05 by mouth ity of 09:24: daily. [address] losartan 2021-0 Yes 20mg Take 20 mg [facility] vers potassium 4-05 by mouth. ity o f (LOSARTAN 09:24: [place] ORAL) [address] [place] [address] FUROSEMIDE 2021-0 Yes 40mg Take 40 mg U nivers ORAL 4-05 by mouth ity of 09:24: daily. [address] losartan 2021-0 Yes 20mg Take 20 mg [facility] vers potassium 4-05 by mouth. ity o f (LOSARTAN 09:24: [place] ORAL) [address] [place] [address] FUROSEMIDE 2021-0 Yes 40mg Take 40 mg U nivers ORAL 4-05 by mouth ity of 09:24: daily. [address] losartan 2021-0 Yes 20mg Take 20 mg [facility] vers potassium 4-05 by mouth. ity o f (LOSARTAN 09:24: [place] ORAL) [address] [place] [address] FUROSEMIDE 2021-0 Yes 40mg Take 40 mg U nivers ORAL 4-05 by mouth ity of 09:24: daily. [address] losartan 2021-0 Yes 20mg Take 20 mg [facility] vers potassium 4-05 by mouth. ity o f (LOSARTAN 09:24: [place] ORAL) [address] [place] [address] FUROSEMIDE 2021-0 Yes 40mg Take 40 mg U nivers ORAL 4-05 by mouth ity of 09:24: daily. [address] losartan 2021-0 Yes 20mg Take 20 mg [facility] vers potassium 4-05 by mouth. ity o f (LOSARTAN 09:24: [place] ORAL) [address] [place] [address] FUROSEMIDE 2021-0 Yes 40mg Take 40 mg [facility] nivers ORAL 4-05 by mouth ity of 09:24: daily. [address] losartan 2021-0 Yes 20mg Take 20 mg [facility] potassium 4-05 by mouth. ity o f (LOSARTAN 09:24: [place] ORAL) [address] [place] [address] FUROSEMIDE 2021-0 Yes 40mg Take 40 mg U nivers ORAL 4-05 by mouth ity of 09:24: daily. [address] losartan 2021-0 Yes 20mg Take 20 mg [facility] vers potassium 4-05 by mouth. ity o f (LOSARTAN 09:24: [place] ORAL) [address] [place] [address] FUROSEMIDE 2021-0 Yes 40mg Take 40 mg U nivers ORAL 4-05 by mouth ity of 09:24: daily. [address] losartan 2021-0 Yes 20mg Take 20 mg [facility] vers potassium 4-05 by mouth. ity o f (LOSARTAN 09:24: [place] ORAL) [address] [place] [address] FUROSEMIDE 2021-0 Yes 40mg Take 40 mg U nivers ORAL 4-05 by mouth ity of 09:24: daily. [address] losartan 2021-0 Yes 20mg Take 20 mg [facility] vers potassium 4-05 by mouth. ity o f (LOSARTAN 09:24: [place] ORAL) [address] [place] [address] FUROSEMIDE 2021-0 Yes 40mg Take 40 mg U nivers ORAL 4-05 by mouth ity of 09:24: daily. [address] losartan 2021-0 Yes 20mg Take 20 mg [facility] vers potassium 4-05 by mouth. ity o f (LOSARTAN 09:24: [place] ORAL) [address] [place] [address] FUROSEMIDE 2021-0 Yes 40mg Take 40 mg U nivers ORAL 4-05 by mouth ity of 09:24: daily. [address] losartan 2021-0 Yes 20mg Take 20 mg [facility] vers potassium 4-05 by mouth. ity o f (LOSARTAN 09:24: [place] ORAL) [address] [place] [address] FUROSEMIDE 0 Yes 40mg Take 40 mg U nivers ORAL 4-05 by mouth ity of 09:24: daily. [address] losartan 2021-0 Yes 20mg Take 20 mg [facility] vers potassium 4-05 by mouth. ity o f (LOSARTAN 09:24: [place] ORAL) [address] [place] [address] FUROSEMIDE 0 Yes 40mg Take 40 mg U nivers ORAL 4-05 by mouth ity of 09:24: daily. [address] losartan 2021-0 Yes 20mg Take 20 mg [facility] vers potassium 4-05 by mouth. ity o f (LOSARTAN 09:24: [place] ORAL) [address] [place] [address] FUROSEMIDE 0 Yes 40mg Take 40 mg U nivers ORAL 4-05 by mouth ity of 09:24: daily. [address] losartan 2021-0 Yes 20mg Take 20 mg [facility] vers potassium 4-05 by mouth. ity o f (LOSARTAN 09:24: [place] ORAL) [address] [place] [address] FUROSEMIDE 0 Yes 40mg Take 40 mg U nivers ORAL 4-05 by mouth ity of 09:24: daily. [address] losartan 2021-0 Yes 20mg Take 20 mg [facility] vers potassium 4-05 by mouth. ity o f (LOSARTAN 09:24: [place] ORAL) [address] [place] [address] FUROSEMIDE 0 Yes 40mg Take 40 mg U nivers ORAL 4-05 by mouth ity of 09:24: daily. [address] losartan 2021-0 Yes 20mg Take 20 mg [facility] vers potassium 4-05 by mouth. ity o f (LOSARTAN 09:24: [place] ORAL) [address] [place] [address] FUROSEMIDE 0 Yes 40mg Take 40 mg U nivers ORAL 4-05 by mouth ity of 09:24: daily. [address] losartan 2021-0 Yes 20mg Take 20 mg [facility] vers potassium 4-05 by mouth. ity o f (LOSARTAN 09:24: [place] ORAL) [address] [place] [address] FUROSEMIDE 2021-0 Yes 40mg Take 40 mg U nivers ORAL 4-05 by mouth ity of 09:24: daily. [address] losartan 2021-0 Yes 20mg Take 20 mg [facility] vers potassium 4-05 by mouth. ity o f (LOSARTAN 09:24: [place] ORAL) [address] [place] [address] FUROSEMIDE 2021-0 Yes 40mg Take 40 mg U nivers ORAL 4-05 by mouth ity of 09:24: daily. [address] losartan 2021-0 Yes 20mg Take 20 mg [facility] vers potassium 4-05 by mouth. ity o f (LOSARTAN 09:24: [place] ORAL) [address] [place] [address] FUROSEMIDE 2021-0 Yes 40mg Take 40 mg U nivers ORAL 4-05 by mouth ity of 09:24: daily. [address] losartan 2021-0 Yes 20mg Take 20 mg [facility] vers potassium 4-05 by mouth. ity o f (LOSARTAN 09:24: [place] ORAL) [address] [place] [address] FUROSEMIDE 0 Yes 40mg Take 40 mg U nivers ORAL 4-05 by mouth ity of 09:24: daily. [address] losartan 2021-0 Yes 20mg Take 20 mg [facility] vers potassium 4-05 by mouth. ity o f (LOSARTAN 09:24: [place] ORAL) [address] [place] [address] FUROSEMIDE 2021-0 Yes 40mg Take 40 mg U nivers ORAL 4-05 by mouth ity of 09:24: daily. [address] losartan 2021-0 Yes 20mg Take 20 mg [facility] vers potassium 4-05 by mouth. ity o f (LOSARTAN 09:24: [place] ORAL) [address] [place] [address] FUROSEMIDE 2021-0 Yes 40mg Take 40 mg U nivers ORAL 4-05 by mouth ity of 09:24: daily. [address] losartan 2021-0 Yes 20mg Take 20 mg [facility] vers potassium 4-05 by mouth. ity o f (LOSARTAN 09:24: [place] ORAL) [address] [place] [address] FUROSEMIDE 2021-0 Yes 40mg Take 40 mg U nivers ORAL 4-05 by mouth ity of 09:24: daily. [address] losartan 2021-0 Yes 20mg Take 20 mg [facility] vers potassium 4-05 by mouth. ity o f (LOSARTAN 09:24: [place] ORAL) [address] [place] [address] FUROSEMIDE 2021-0 Yes 40mg Take 40 mg U nivers ORAL 4-05 by mouth ity of 09:24: daily. [address] losartan 2021-0 Yes 20mg Take 20 [...] f (LOSARTAN 09:24: [place] ORAL) [address] [facility] [place] losartan Yes 20mg Take 20 mg [facility] [...] [place] ORAL) 36 [facility] gabapentin Yes [id number] 300mg Take 1 [facility] 300 mg 4-05 capsule by ity of capsule 00:00: mouth 3 [place] 00 (three) Medical times Branch daily. rizatriptan 0 Yes [id number] 5mg Take 1 [facility] 5 mg 4-05 tablet by ity of disintegrat 00:00: mouth [place] ing tablet 00 needed for Med ical Migraine Branch (Take 5mg at the beginning of the headache can repeat 2h after if headaches persists). May repeat in 2 hours if needed magnesium 2021-0 Yes [id number] 400mg Take 2 [facility] gluconate 4-05 tablets by ity of 200 mg 00:00: mouth 2 [place] tablet 00 (two) Medical times [facility] daily. gabapentin 2021-0 Yes [id number] 300mg Take 1 [facility] 300 mg 4-05 capsule by ity of capsule 00:00: mouth 3 [place] 00 (three) Medical times [facility] daily. rizatriptan 2021-0 Yes [id number] 5mg Take 1 [facility] 5 mg 4-05 tablet by ity of disintegrat 00:00: mouth [place] tablet 00 needed for Med ical Migraine Branch (Take 5mg at the beginning of the headache can repeat 2h after if headaches persists). May repeat in 2 hours if needed magnesium 2022-0 Yes [id number] 400mg Take 2 [facility] gluconate 4-05 tablets by ity of 200 mg 00:00: mouth 2 [place] tablet 00 (two) Medical times [facility] daily. gabapentin 2022-0 Yes [id number] 300mg Take 1 [facility] 300 mg 4-05 capsule by ity of capsule 00:00: mouth 3 [place] 00 (three) Medical times [facility] daily. rizatriptan 2022-0 Yes [id number] 5mg Take 1 [facility] 5 mg 4-05 tablet by ity of disintegrat 00:00: mouth [place] tablet 00 needed for Med ical Migraine Branch (Take 5mg at the beginning of the headache can repeat 2h after if headaches persists). May repeat in 2 hours if needed magnesium 2022-0 Yes [id number] 400mg Take 2 [facility] gluconate 4-05 tablets by ity of 200 mg 00:00: mouth 2 [place] tablet 00 (two) Medical times [facility] daily. gabapentin 2022-0 Yes [id number] 300mg Take 1 [facility] 300 mg 4-05 capsule by ity of capsule 00:00: mouth 3 (three) Medical times [facility] daily. rizatriptan 2022-0 Yes [id number] 5mg Take 1 [facility] 5 mg 4-05 tablet by ity of disintegrat 00:00: mouth [place] tablet 00 needed for Med ical Migraine Branch (Take 5mg at the beginning of the headache can repeat 2h after if headaches persists). May repeat in 2 hours if needed magnesium 2022-0 Yes [id number] 400mg Take 2 [facility] gluconate 4-05 tablets by ity of 200 mg 00:00: mouth 2 [place] tablet 00 (two) Medical times Branch daily. gabapentin 2022-0 Yes [id number] 300mg Take 1 [facility] 300 mg 4-05 capsule by ity of capsule 00:00: mouth 3 [place] (three) Medical times Branch daily. rizatriptan 2022-0 Yes [id number] 5mg Take 1 [facility] 5 mg 4-05 tablet by ity of disintegrat 00:00: mouth [place] tablet 00 needed for Med ical Migraine Branch (Take 5mg at the beginning of the headache can repeat 2h after if headaches persists). May repeat in 2 hours if needed magnesium 2022-0 Yes [id number] 400mg Take 2 [facility] gluconate 4-05 tablets by ity of 200 mg 00:00: mouth 2 [place] tablet 00 (two) Medical times Branch daily. gabapentin 2022-0 Yes [id number] 300mg Take 1 [facility] 300 mg 4-05 capsule by ity of capsule 00:00: mouth 3 [place] 00 (three) Medical times Branch daily. rizatriptan 2022-0 Yes [id number] 5mg Take 1 [facility]-05 [facility]: mouth as [place] ing tablet 00 needed for [facility] (Take 5mg at the beginning of the headache can repeat 2h after if headaches persists). May repeat in 2 hours if needed magnesium 2022-0 Yes [id number] 400mg Take 2 [facility] gluconate 4-05 tablets by [facility] 200 mg 00:00: mouth 2 [place] tablet 00 (two) [facility] times [facility] daily. gabapentin 2022-0 Yes [id number] 300mg Take 1 [facility] 300 mg 4-05 capsule by [facility] capsule 00:00: mouth 3 [place] 00 (three) [facility] times [facility] daily. rizatriptan 2022-0 Yes [id number] 5mg Take 1 [facility] 5 mg 4-05 tablet by [facility] 00:00: mouth as [place] ing tablet 00 needed for [facility] (Take 5mg at the beginning of the headache can repeat 2h after if headaches persists). May repeat in 2 hours if needed magnesium 2022-0 Yes [id number] 400mg Take 2 [facility] gluconate 4-05 tablets by [facility] 200 mg 00:00: mouth 2 [place] tablet 00 (two) [facility] times [facility] daily. gabapentin 2022-0 Yes [id number] 300mg Take 1 [facility] 300 mg 4-05 capsule by [facility] capsule 00:00: mouth 3 [place] 00 (three) [facility] times [facility] daily. rizatriptan 2022-0 Yes [id number] 5mg Take 1 [facility] 5 mg 4-05 tablet by [facility] 00:00: mouth as [place] ing tablet 00 needed for [facility] (Take 5mg at the beginning of the headache can repeat 2h after if headaches persists). May repeat in 2 hours if needed magnesium 2022-0 Yes [id number] 400mg Take 2 [facility] gluconate 4-05 tablets by [facility] 200 mg 00:00: mouth 2 [place] tablet 00 (two) [facility] times [facility] daily. gabapentin 2022-0 Yes [id number] 300mg Take 1 [facility] 300 mg 4-05 capsule by [facility] capsule 00:00: mouth 3 [place] 00 (three) [facility] times [facility] daily. rizatriptan 2022-0 Yes [id number] 5mg Take 1 [facility] 5 mg 4-05 tablet by [facility] 00:00: mouth as [place] ing tablet 00 needed for [facility] (Take 5mg at the beginning of the headache can repeat 2h after if headaches persists). May repeat in 2 hours if needed magnesium 2022-0 Yes [id number] 400mg Take 2 [facility] gluconate 4-05 tablets by [facility] 200 mg 00:00: mouth 2 [place] tablet 00 (two) [facility] times [facility] daily. gabapentin 2022-0 Yes [id number] 300mg Take 1 [facility] 300 mg 4-05 capsule by [facility] capsule 00:00: mouth 3 [place] 00 (three) [facility] times [facility] daily. rizatriptan 2022-0 Yes [id number] 5mg Take 1 [facility] 5 mg 4-05 tablet by [facility] 00:00: mouth as [place] ing tablet 00 needed for [facility] (Take 5mg at the beginning of the headache can repeat 2h after if headaches persists). May repeat in 2 hours if needed magnesium 2022-0 Yes [id number] 400mg Take 2 [facility] gluconate 4-05 tablets by [facility] 200 mg 00:00: mouth 2 [place] tablet 00 (two) [facility] times [facility] daily. gabapentin 2022-0 Yes [id number] 300mg Take 1 [facility] 300 mg 4-05 capsule by [facility] capsule 00:00: mouth 3 [place] 00 (three) [facility] times [facility] daily. rizatriptan 2022-0 Yes [id number] 5mg Take 1 [facility] 5 mg 4-05 tablet by [facility] 00:00: mouth as [place] ing tablet 00 needed for [facility] (Take 5mg at the beginning of the headache can repeat 2h after if headaches persists). May repeat in 2 hours if needed magnesium 2022-0 Yes [id number] 400mg Take 2 [facility] gluconate 4-05 tablets by [facility] 200 mg 00:00: mouth 2 [place] tablet 00 (two) [facility] times [facility] daily. gabapentin 2022-0 Yes [id number] 300mg Take 1 [facility] 300 mg 4-05 capsule by [facility] capsule 00:00: mouth 3 [place] 00 (three) [facility] times [facility] daily. rizatriptan 2022-0 Yes [id number] 5mg Take 1 [facility] 5 mg 4-05 tablet by [facility] 00:00: mouth as [place] ing tablet 00 needed for [facility] (Take 5mg at the beginning of the headache can repeat 2h after if headaches persists). May repeat in 2 hours if needed magnesium 2022-0 Yes [id number] 400mg Take 2 [facility] gluconate 4-05 tablets by [facility] 200 mg 00:00: mouth 2 [place] tablet 00 (two) [facility] times [facility] daily. gabapentin 2022-0 Yes [id number] 300mg Take 1 [facility] 300 mg 4-05 capsule by [facility] capsule 00:00: mouth 3 [place] (three) [facility] times [facility] daily. rizatriptan 2022-0 Yes [id number] 5mg Take 1 [facility] 5 mg 4-05 tablet by [facility] 00:00: mouth as [place] ing tablet 00 needed for [facility] (Take 5mg at the beginning of the headache can repeat 2h after if headaches persists). May repeat in 2 hours if needed magnesium 2022-0 Yes [id number] 400mg Take 2 [facility] gluconate 4-05 tablets by [facility] 200 mg 00:00: mouth 2 [place] tablet 00 (two) [facility] times [facility] daily. gabapentin 2022-0 Yes [id number] 300mg Take 1 [facility] 300 mg 4-05 capsule by [facility] capsule 00:00: mouth 3 [place] 00 (three) [facility] times [facility] daily. rizatriptan 2022-0 Yes [id number] 5mg Take 1 [facility] 5 mg 4-05 tablet by [facility] 00:00: mouth as [place] ing tablet 00 needed for [facility] (Take 5mg at the beginning of the headache can repeat 2h after if headaches persists). May repeat in 2 hours if needed magnesium 2022-0 Yes [id number] 400mg Take 2 [facility] gluconate 4-05 tablets by [facility] 200 mg 00:00: mouth 2 [place] tablet 00 (two) [facility] times [facility] daily. gabapentin 2022-0 Yes [id number] 300mg Take 1 [facility] 300 mg 4-05 capsule by [facility] capsule 00:00: mouth 3 [place] (three) [facility] times [facility] daily. rizatriptan 2022-0 Yes [id number] 5mg Take 1 [facility] 5 mg 4-05 tablet by [facility] 00:00: mouth as [place] ing tablet 00 needed for [facility] (Take 5mg at the beginning of the headache can repeat 2h after if headaches persists). May repeat in 2 hours if needed magnesium 2022-0 Yes [id number] 400mg Take 2 [facility] gluconate 4-05 tablets by [facility] 200 mg 00:00: mouth 2 [place] tablet 00 (two) [facility] times [facility] daily. gabapentin 2022-0 Yes [id number] 300mg Take 1 [facility] 300 mg 4-05 capsule by [facility] capsule 00:00: mouth 3 [place] (three) [facility] times [facility] daily. rizatriptan 2022-0 Yes [id number] 5mg Take 1 [facility] 5 mg 4-05 tablet by [facility] 00:00: mouth as [place] ing tablet 00 needed for [facility] (Take 5mg at the beginning of the headache can repeat 2h after if headaches persists). May repeat in 2 hours if needed magnesium 2022-0 Yes [id number] 400mg Take 2 [facility] gluconate 4-05 tablets by [facility] 200 mg 00:00: mouth 2 [place] tablet 00 (two) [facility] times [facility] daily. gabapentin 2022-0 Yes [id number] 300mg Take 1 [facility] 300 mg 4-05 capsule by [facility] capsule 00:00: mouth 3 [place] (three) [facility] times [facility] daily. rizatriptan 2022-0 Yes [id number] 5mg Take 1 [facility] 5 mg 4-05 tablet by [facility]at 00:00: mouth as [place] ing tablet 00 needed for [facility] (Take 5mg at the beginning of the headache can repeat 2h after if headaches persists). May repeat in 2 hours if needed magnesium 2022-0 Yes [id number] 400mg Take 2 [facility] gluconate 4-05 tablets by [facility] 200 mg 00:00: mouth 2 [place] tablet 00 (two) [facility] times [facility] daily. gabapentin 2022-0 Yes [id number] 300mg Take 1 [facility] 300 mg 4-05 capsule by [facility] capsule 00:00: mouth 3 [place] 00 (three) [facility] times [facility] daily. rizatriptan 2022-0 Yes [id number] 5mg Take 1 [facility] 5 mg 4-05 tablet by [facility] 00:00: mouth as [place] ing tablet 00 needed for [facility] (Take 5mg at the beginning of the headache can repeat 2h after if headaches persists). May repeat in 2 hours if needed magnesium 2022-0 Yes [id number] 400mg Take 2 [facility] gluconate 4-05 tablets by [facility] 200 mg 00:00: mouth 2 [place] tablet 00 (two) [facility] times [facility] daily. gabapentin 2022-0 Yes [id number] 300mg Take 1 [facility] 300 mg 4-05 capsule by [facility] capsule 00:00: mouth 3 [place] (three) [facility] times [facility] daily. rizatriptan 2022-0 Yes [id number] 5mg Take 1 [facility] 5 mg 4-05 tablet by [facility]at 00:00: mouth as [place] ing tablet 00 needed for [facility] (Take 5mg at the beginning of the headache can repeat 2h after if headaches persists). May repeat in 2 hours if needed magnesium 2022-0 Yes [id number] 400mg Take 2 [facility] gluconate 4-05 tablets by [facility] 200 mg 00:00: mouth 2 [place] tablet 00 (two) [facility] times [facility] daily. gabapentin 2-0 Yes [id number] 300mg Take 1 [facility] 300 mg 4-05 capsule by [facility] capsule 00:00: mouth 3 [place] 00 (three) [facility] times [facility] daily. rizatriptan 2022-0 Yes [id number] 5mg Take 1 [facility] 5 mg 4-05 tablet by [facility] 00:00: mouth as [place] ing tablet 00 needed for [facility] (Take 5mg at the beginning of the headache can repeat 2h after if headaches persists). May repeat in 2 hours if needed magnesium 2022-0 Yes [id number] 400mg Take 2 [facility] gluconate 4-05 tablets by [facility] 200 mg 00:00: mouth 2 [place] tablet 00 (two) [facility] times [facility] daily. gabapentin 2022-0 Yes [id number] 300mg Take 1 [facility] 300 mg 4-05 capsule by [facility] capsule 00:00: mouth 3 [place] (three) [facility] times [facility] daily. rizatriptan 2022-0 Yes [id number] 5mg Take 1 [facility] 5 mg 4-05 tablet by [facility] 00:00: mouth as [place] ing tablet 00 needed for [facility] (Take 5mg at the beginning of the headache can repeat 2h after if headaches persists). May repeat in 2 hours if needed magnesium 2022-0 Yes [id number] 400mg Take 2 [facility] gluconate 4-05 tablets by [facility] 200 mg 00:00: mouth 2 [place] tablet 00 (two) [facility] times [facility] daily. gabapentin 2022-0 Yes [id number] 300mg Take 1 [facility] 300 mg 4-05 capsule by [facility] capsule 00:00: mouth 3 (three) [facility] times [facility] daily. rizatriptan 2022-0 Yes [id number] 5mg Take 1 [facility] 5 mg 4-05 tablet by [facility] 00:00: mouth as [place] ing tablet 00 needed for [facility] (Take 5mg at the beginning of the headache can repeat 2h after if headaches persists). May repeat in 2 hours if needed magnesium 2022-0 Yes [id number] 400mg Take 2 [facility] gluconate 4-05 tablets by [facility] 200 mg 00:00: mouth 2 [place] tablet 00 (two) [facility] times [facility] daily. gabapentin 2022-0 Yes [id number] 300mg Take 1 [facility] 300 mg 4-05 capsule by [facility] capsule 00:00: mouth 3 (three) [facility] times [facility] daily. rizatriptan 2022-0 Yes [id number] 5mg Take 1 [facility] 5 mg 4-05 tablet by [facility]at 00:00: mouth as [place] ing tablet 00 needed for [facility] (Take 5mg at the beginning of the headache can repeat 2h after if headaches persists). May repeat in 2 hours if needed magnesium 2022-0 Yes [id number] 400mg Take 2 [facility] gluconate 4-05 tablets by [facility] 200 mg 00:00: mouth 2 [place] tablet 00 (two) [facility] times [facility] daily. gabapentin 2022-0 Yes [id number] 300mg Take 1 [facility] 300 mg 4-05 capsule by [facility] capsule 00:00: mouth 3 (three) [facility] times [facility] daily. rizatriptan 2022-0 Yes [id number] 5mg Take 1 [facility] 5 mg 4-05 tablet by [facility]at 00:00: mouth as [place] ing tablet 00 needed for [facility] (Take 5mg at the beginning of the headache can repeat 2h after if headaches persists). May repeat in 2 hours if needed magnesium 2022-0 Yes [id number] 400mg Take 2 [facility] gluconate 4-05 tablets by [facility] 200 mg 00:00: mouth 2 [place] tablet 00 (two) [facility] times [facility] daily. gabapentin 2022-0 Yes [id number] 300mg Take 1 [facility] 300 mg 4-05 capsule by [facility] capsule 00:00: mouth 3 [place] (three) [facility] times [facility] daily. rizatriptan 2022-0 Yes [id number] 5mg Take 1 [facility] 5 mg 4-05 tablet by [facility] dis[facility]at 00:00: mouth as [place] ing tablet 00 needed for [facility] (Take 5mg at the beginning of the headache can repeat 2h after if headaches persists). May repeat in 2 hours if needed magnesium 2022-0 Yes [id number] 400mg Take 2 [facility] gluconate 4-05 tablets by [facility] of 200 mg 00:00: mouth 2 [place] tablet 00 (two) [facility] times [facility] daily. gabapentin 2022-0 Yes [id number] 300mg Take 1 [facility] 300 mg 4-05 capsule by [facility] capsule 00:00: mouth 3 (three) [facility] times [facility] daily. rizatriptan 2022-0 Yes [id number] 5mg Take 1 [facility] 5 mg 4-05 tablet by [facility]at 00:00: mouth as [place] ing tablet 00 needed for [facility] (Take 5mg at the beginning of the headache can repeat 2h after if headaches persists). May repeat in 2 hours if needed magnesium 2022-0 Yes [id number] 400mg Take 2 [facility] gluconate 4-05 tablets by [facility] 200 mg 00:00: mouth 2 [place] tablet 00 (two) [facility] times [facility] daily. gabapentin 2022-0 Yes [id number] 300mg Take 1 [facility] 300 mg 4-05 capsule by [facility] capsule 00:00: mouth 3 [place] 00 (three) Medical times [facility] daily. rizatriptan 2022-0 Yes [id number] 5mg Take 1 [facility] 5 mg 4-05 tablet by [facility]at 00:00: mouth as [place] ing tablet 00 needed for [facility] (Take 5mg at the beginning of the headache can repeat 2h after if headaches persists). May repeat in 2 hours if needed magnesium 2022-0 Yes [id number] 400mg Take 2 [facility] gluconate 4-05 tablets by [facility] 200 mg 00:00: mouth 2 [place] tablet 00 (two) [facility] times [facility] daily. gabapentin 2022-0 Yes [id number] 300mg Take 1 [facility] 300 mg 4-05 capsule by [facility] capsule 00:00: mouth 3 [place] 00 (three) [facility] times [facility] daily. rizatriptan 2022-0 Yes [id number] 5mg Take 1 [facility] 5 mg 4-05 tablet by [facility]at 00:00: mouth as [place] ing tablet 00 needed for [facility] (Take 5mg at the beginning of the headache can repeat 2h after if headaches persists). May repeat in 2 hours if needed magnesium 2022-0 Yes [id number] 400mg Take 2 [facility] gluconate 4-05 tablets by [facility] 200 mg 00:00: mouth 2 [place] tablet 00 (two) [facility] times [facility] daily. gabapentin 2022-0 Yes [id number] 300mg Take 1 [facility] 300 mg 4-05 capsule by [facility] capsule 00:00: mouth 3 [place] 00 (three) Medical times [facility] daily. rizatriptan 2022-0 Yes [id number] 5mg Take 1 [facility] 5 mg 4-05 tablet by [facility]at 00:00: mouth as [place] ing tablet 00 needed for [facility] (Take 5mg at the beginning of the headache can repeat 2h after if headaches persists). May repeat in 2 hours if needed magnesium 2022-0 Yes [id number] 400mg Take 2 [facility] gluconate 4-05 tablets by [facility] 200 mg 00:00: mouth 2 [place] tablet 00 (two) [facility] times [facility] daily. gabapentin 2022-0 Yes [id number] 300mg Take 1 [facility] 300 mg 4-05 capsule by [facility] capsule 00:00: mouth 3 [place] 00 (three) Medical times [facility] daily. rizatriptan 2022-0 Yes [id number] 5mg Take 1 [facility] 5 mg 4-05 tablet by [facility]at 00:00: mouth as [place] ing tablet 00 needed for [facility] (Take 5mg at the beginning of the headache can repeat 2h after if headaches persists). May repeat in 2 hours if needed magnesium 2022-0 Yes [id number] 400mg Take 2 [facility] gluconate 4-05 tablets by [facility] 200 mg 00:00: mouth 2 [place] tablet 00 (two) [facility] times [facility] daily. gabapentin 2022-0 Yes [id number] 300mg Take 1 [facility] 300 mg 4-05 capsule by [facility] capsule 00:00: mouth 3 [place] 00 (three) Medical times [facility] daily. rizatriptan 2022-0 Yes [id number] 5mg Take 1 [facility] 5 mg 4-05 tablet by [facility] dis[facility]at 00:00: mouth as [place] ing tablet 00 needed for [facility] (Take 5mg at the beginning of the headache can repeat 2h after if headaches persists). May repeat in 2 hours if needed magnesium 2022-0 Yes [id number] 400mg Take 2 [facility] gluconate 4-05 tablets by [facility] of 200 mg 00:00: mouth 2 [place] tablet 00 (two) Medical times [facility] daily. gabapentin 2022-0 Yes [id number] 300mg Take 1 [facility] 300 mg 4-05 capsule by [facility] capsule 00:00: mouth 3 [place] (three) Medical times [facility] daily. rizatriptan 2022-0 Yes [id number] 5mg Take 1 [facility] 5 mg 4-05 tablet by [facility] dis[facility]at 00:00: mouth as [place] ing tablet 00 needed for [facility] (Take 5mg at the beginning of the headache can repeat 2h after if headaches persists). May repeat in 2 hours if needed magnesium 2022-0 Yes [id number] 400mg Take 2 [facility] gluconate 4-05 tablets by [facility] of 200 mg 00:00: mouth 2 [place] tablet 00 (two) [facility] times [facility] daily. gabapentin 2022-0 Yes [id number] 300mg Take 1 [facility] 300 mg 4-05 capsule by [facility] capsule 00:00: mouth 3 [place] 00 (three) Medical times [facility] daily. rizatriptan 2022-0 Yes [id number] 5mg Take 1 [facility] 5 mg 4-05 tablet by [facility] disintegrat 00:00: mouth as [place] ing tablet 00 needed for [facility] (Take 5mg at the beginning of the headache can repeat 2h after if headaches persists). May repeat in 2 hours if needed magnesium 2022-0 Yes [id number] 400mg Take 2 [facility] gluconate 4-05 tablets by [facility] of 200 mg 00:00: mouth 2 [place] tablet 00 (two) [facility] times [facility] daily. gabapentin 2022-0 Yes [id number] 300mg Take 1 [facility] 300 mg 4-05 capsule by [facility] capsule 00:00: mouth 3 [place] 00 (three) Medical times [facility] daily. rizatriptan 2022-0 Yes [id number] 5mg Take 1 [facility] 5 mg 4-05 tablet by [facility] dis[facility]at 00:00: mouth as [place] ing tablet 00 needed for [facility] (Take 5mg at the beginning of the headache can repeat 2h after if headaches persists). May repeat in 2 hours if needed magnesium 2022-0 Yes [id number] 400mg Take 2 [facility] gluconate 4-05 tablets by [facility] of 200 mg 00:00: mouth 2 [place] tablet 00 (two) Medical times [facility] daily. gabapentin 2022-0 Yes [id number] 300mg Take 1 [facility] 300 mg 4-05 capsule by [facility] capsule 00:00: mouth 3 [place] 00 (three) Medical times [facility] daily. rizatriptan 2022-0 Yes [id number] 5mg Take 1 [facility] 5 mg 4-05 tablet by [facility] disintegrat 00:00: mouth as [place] ing tablet 00 needed for [facility] (Take 5mg at the beginning of the headache can repeat 2h after if headaches persists). May repeat in 2 hours if needed magnesium 2022-0 Yes [id number] 400mg Take 2 [facility] gluconate 4-05 tablets by [facility] of 200 mg 00:00: mouth 2 [place] tablet 00 (two) Medical times [facility] daily. gabapentin 2022-0 Yes [id number] 300mg Take 1 [facility] 300 mg 4-05 capsule by [facility] capsule 00:00: mouth 3 [place] 00 (three) Medical times [facility] daily. rizatriptan 2022-0 Yes [id number] 5mg Take 1 [facility] 5 mg 4-05 tablet by [facility] dis[facility]at 00:00: mouth as [place] ing tablet 00 needed for [facility] (Take 5mg at the beginning of the headache can repeat 2h after if headaches persists). May repeat in 2 hours if needed magnesium 2022-0 Yes [id number] 400mg Take 2 [facility] gluconate 4-05 tablets by [facility] of 200 mg 00:00: mouth 2 [place] tablet 00 (two) [facility] times [facility] daily. gabapentin 2022-0 Yes [id number] 300mg Take 1 [facility] 300 mg 4-05 capsule by [facility] capsule 00:00: mouth 3 [place] 00 (three) Medical times [facility] daily. rizatriptan 2022-0 Yes [id number] 5mg Take 1 [facility] 5 mg 4-05 tablet by [facility] disintegrat 00:00: mouth as [place] ing tablet 00 needed for [facility] (Take 5mg at the beginning of the headache can repeat 2h after if headaches persists). May repeat in 2 hours if needed magnesium 2022-0 Yes [id number] 400mg Take 2 [facility] gluconate 4-05 tablets by [facility] of 200 mg 00:00: mouth 2 [place] tablet 00 (two) [facility] times [facility] daily. gabapentin 2022-0 Yes [id number] 300mg Take 1 [facility] 300 mg 4-05 capsule by [facility] capsule 00:00: mouth 3 [place] 00 (three) Medical times [facility] daily. rizatriptan 2022-0 Yes [id number] 5mg Take 1 [facility] 5 mg 4-05 tablet by [facility] dis[facility]at 00:00: mouth as [place] ing tablet 00 needed for [facility] (Take 5mg at the beginning of the headache can repeat 2h after if headaches persists). May repeat in 2 hours if needed magnesium 2022-0 Yes [id number] 400mg Take 2 [facility] gluconate 4-05 tablets by [facility] of 200 mg 00:00: mouth 2 [place] tablet 00 (two) Medical times [facility] daily. gabapentin 2022-0 Yes [id number] 300mg Take 1 [facility] 300 mg 4-05 capsule by [facility] capsule 00:00: mouth 3 [place] 00 (three) Medical times [facility] daily. rizatriptan 2022-0 Yes [id number] 5mg Take 1 [facility] 5 mg 4-05 tablet by [facility] disintegrat 00:00: mouth as [place] ing tablet 00 needed for [facility] (Take 5mg at the beginning of the headache can repeat 2h after if headaches persists). May repeat in 2 hours if needed magnesium 2022-0 Yes [id number] 400mg Take 2 [facility] gluconate 4-05 tablets by [facility] of 200 mg 00:00: mouth 2 [place] tablet 00 (two) [facility] times [facility] daily. gabapentin 2022-0 Yes [id number] 300mg Take 1 [facility] 300 mg 4-05 capsule by [facility] capsule 00:00: mouth 3 [place] 00 (three) Medical times [facility] daily. rizatriptan 2022-0 Yes [id number] 5mg Take 1 [facility] 5 mg 4-05 tablet by [facility] dis[facility]at 00:00: mouth as [place] ing tablet 00 needed for [facility] (Take 5mg at the beginning of the headache can repeat 2h after if headaches persists). May repeat in 2 hours if needed magnesium 2022-0 Yes [id number] 400mg Take 2 [facility] gluconate 4-05 tablets by [facility] of 200 mg 00:00: mouth 2 [place] tablet 00 (two) Medical times [facility] daily. gabapentin 2-0 Yes [id number] 300mg Take 1 [facility] 300 mg 4-05 capsule by [facility] capsule 00:00: mouth 3 [place] (three) [facility] times [facility] daily. rizatriptan 2022-0 Yes [id number] 5mg Take 1 [facility] 5 mg 4-05 tablet by [facility] dis[facility]at 00:00: mouth as [place] ing tablet 00 needed for [facility] (Take 5mg at the beginning of the headache can repeat 2h after if headaches persists). May repeat in 2 hours if needed magnesium 2022-0 Yes [id number] 400mg Take 2 [facility] gluconate 4-05 tablets by [facility] of 200 mg 00:00: mouth 2 [place] tablet 00 (two) [facility] times [facility] daily. gabapentin 2022-0 Yes [id number] 300mg Take 1 [facility] 300 mg 4-05 capsule by [facility] capsule 00:00: mouth 3 [place] 00 (three) Medical times [facility] daily. rizatriptan 2022-0 Yes [id number] 5mg Take 1 [facility] 5 mg 4-05 tablet by [facility] dis[facility]at 00:00: mouth as [place] ing tablet 00 needed for [facility] (Take 5mg at the beginning of the headache can repeat 2h after if headaches persists). May repeat in 2 hours if needed magnesium 2022-0 Yes [id number] 400mg Take 2 [facility] gluconate 4-05 tablets by [facility] of 200 mg 00:00: mouth 2 [place] tablet 00 (two) [facility] times [facility] daily. gabapentin 2022-0 Yes [id number] 300mg Take 1 [facility] 300 mg 4-05 capsule by [facility] capsule 00:00: mouth 3 [place] (three) Medical times [facility] daily. rizatriptan 2022-0 Yes [id number] 5mg Take 1 [facility] 5 mg 4-05 tablet by [facility] dis[facility]at 00:00: mouth as [place] ing tablet 00 needed for [facility] (Take 5mg at the beginning of the headache can repeat 2h after if headaches persists). May repeat in 2 hours if needed magnesium 2022-0 Yes [id number] 400mg Take 2 [facility] gluconate 4-05 tablets by [facility] of 200 mg 00:00: mouth 2 [place] tablet 00 (two) Medical times [facility] daily. gabapentin 2022-0 Yes [id number] 300mg Take 1 [facility] 300 mg 4-05 capsule by [facility] capsule 00:00: mouth 3 [place] (three) Medical times [facility] daily. rizatriptan 2022-0 Yes [id number] 5mg Take 1 [facility] 5 mg 4-05 tablet by [facility] dis[facility]at 00:00: mouth as [place] ing tablet 00 needed for [facility] (Take 5mg at the beginning of the headache can repeat 2h after if headaches persists). May repeat in 2 hours if needed magnesium 2022-0 Yes [id number] 400mg Take 2 [facility] gluconate 4-05 tablets by [facility] of 200 mg 00:00: mouth 2 [place] tablet 00 (two) Medical times [facility] daily. gabapentin 2022-0 Yes [id number] 300mg Take 1 [facility] 300 mg 4-05 capsule by [facility] capsule 00:00: mouth 3 [place] (three) Medical times [facility] daily. rizatriptan 2022-0 Yes [id number] 5mg Take 1 [facility] 5 mg 4-05 tablet by [facility] dis[facility]at 00:00: mouth as [place] ing tablet 00 needed for [facility] (Take 5mg at the beginning of the headache can repeat 2h after if headaches persists). May repeat in 2 hours if needed magnesium 2022-0 Yes [id number] 400mg Take 2 [facility] gluconate 4-05 tablets by [facility] of 200 mg 00:00: mouth 2 [place] tablet 00 (two) Medical times [facility] daily. gabapentin 2022-0 Yes [id number] 300mg Take 1 [facility] 300 mg 4-05 capsule by [facility] of capsule 00:00: mouth 3 [place] 00 (three) Medical times [facility] daily. rizatriptan 2022-0 Yes [id number] 5mg Take 1 [facility] 5 mg 4-05 tablet by [facility] disintegrat 00:00: mouth as [place] ing tablet 00 needed for [facility] (Take 5mg at the beginning of the headache can repeat 2h after if headaches persists). May repeat in 2 hours if needed magnesium 2022-0 Yes [id number] 400mg Take 2 [facility] gluconate 4-05 tablets by [facility] of 200 mg 00:00: mouth 2 [place] tablet 00 (two) [facility] times [facility] daily. gabapentin 2022-0 Yes [id number] 300mg Take 1 [facility] 300 mg 4-05 capsule by [facility] capsule 00:00: mouth 3 [place] (three) Medical times Branch daily. rizatriptan 2022-0 Yes [id number] 5mg Take 1 [facility] 5 mg 4-05 tablet by [facility] disintegrat 00:00: mouth as [place] ing tablet 00 needed for Med ical Migraine Branch (Take 5mg at the beginning of the headache can repeat 2h after if headaches persists). May repeat in 2 hours if needed magnesium 2022-0 Yes [id number] 400mg Take 2 [facility] gluconate 4-05 tablets by [facility] of 200 mg 00:00: mouth 2 [place] tablet 00 (two) Medical times Branch daily. gabapentin 2022-0 Yes [id number] 300mg Take 1 [facility] 300 mg 4-05 capsule by [facility] capsule 00:00: mouth 3 [place] (three) Medical times Branch daily. rizatriptan 2022-0 Yes [id number] 5mg Take 1 [facility] 5 mg 4-05 tablet by [facility] disintegrat 00:00: mouth as [place] ing tablet 00 needed for Med ical Migraine Branch (Take 5mg at the beginning of the headache can repeat 2h after if headaches persists). May repeat in 2 hours if needed magnesium 2022-0 Yes [id number] 400mg Take 2 [facility] gluconate 4-05 tablets by [facility] of 200 mg 00:00: mouth 2 [place] tablet 00 (two) Medical times Branch daily. gabapentin 2022-0 Yes [id number] 300mg Take 1 [facility] 300 mg 4-05 capsule by [facility] capsule 00:00: mouth 3 [place] 00 (three) Medical times Branch daily. rizatriptan 2022-0 Yes [id number] 5mg Take 1 [facility] 5 mg 4-05 tablet by [facility] disintegrat 00:00: mouth as [place] ing tablet 00 needed for Med ical Migraine Branch (Take 5mg at the beginning of the headache can repeat 2h after if headaches persists). May repeat in 2 hours if needed magnesium 2022-0 Yes [id number] 400mg Take 2 [facility] gluconate 4-05 tablets by [facility] of 200 mg 00:00: mouth 2 [place] tablet 00 (two) Medical times Branch daily. gabapentin 2022-0 Yes [id number] 300mg Take 1 [facility] 300 mg 4-05 capsule by [facility] of capsule 00:00: mouth 3 [place] (three) Medical times Branch daily. rizatriptan 2022-0 Yes [id number] 5mg Take 1 [facility] 5 mg 4-05 tablet by [facility] disintegrat 00:00: mouth as [place] ing tablet 00 needed for Med ical Migraine Branch (Take 5mg at the beginning of the headache can repeat 2h after if headaches persists). May repeat in 2 hours if needed magnesium 2022-0 Yes [id number] 400mg Take 2 [facility] gluconate 4-05 tablets by [facility] of 200 mg 00:00: mouth 2 [place] tablet 00 (two) Medical times Branch daily. gabapentin 2022-0 Yes [id number] 300mg Take 1 [facility] 300 mg 4-05 capsule by [facility] of capsule 00:00: mouth 3 (three) Medical times Branch daily. rizatriptan 2022-0 Yes [id number] 5mg Take 1 [facility] 5 mg 4-05 tablet by [facility] disintegrat 00:00: mouth as [place] ing tablet 00 needed for Med ical Migraine Branch (Take 5mg at the beginning of the headache can repeat 2h after if headaches persists). May repeat in 2 hours if needed magnesium 2022-0 Yes [id number] 400mg Take 2 [facility] gluconate 4-05 tablets by [facility] of 200 mg 00:00: mouth 2 [place] tablet 00 (two) Medical times Branch daily. gabapentin 2022-0 Yes [id number] 300mg Take 1 [facility] 300 mg 4-05 capsule by [facility] of capsule 00:00: mouth 3 [place] 00 (three) Medical times Branch daily. rizatriptan 2022-0 Yes [id number] 5mg Take 1 [facility] 5 mg 4-05 tablet by [facility] disintegrat 00:00: mouth as [place] ing tablet 00 needed for Med ical Migraine Branch (Take 5mg at the beginning of the headache can repeat 2h after if headaches persists). May repeat in 2 hours if needed magnesium 2022-0 Yes [id number] 400mg Take 2 [facility] gluconate 4-05 tablets by [facility] of 200 mg 00:00: mouth 2 [place] tablet 00 (two) Medical times Branch daily. gabapentin 2022-0 Yes [id number] 300mg Take 1 [facility] 300 mg 4-05 capsule by [facility] of capsule 00:00: mouth 3 (three) Medical times Branch daily. rizatriptan 2022-0 Yes [id number] 5mg Take 1 [facility] 5 mg 4-05 tablet by [facility] disintegrat 00:00: mouth as [place] ing tablet 00 needed for Med ical Migraine Branch (Take 5mg at the beginning of the headache can repeat 2h after if headaches persists). May repeat in 2 hours if needed magnesium 2022-0 Yes [id number] 400mg Take 2 [facility] gluconate 4-05 tablets by [facility] of 200 mg 00:00: mouth 2 [place] tablet 00 (two) Medical times Branch daily. gabapentin 2022-0 Yes [id number] 300mg Take 1 [facility] 300 mg 4-05 capsule by [facility] of capsule 00:00: mouth 3 (three) Medical times Branch daily. rizatriptan 2022-0 Yes [id number] 5mg Take 1 [facility] 5 mg 4-05 tablet by [facility] disintegrat 00:00: mouth as [place] ing tablet 00 needed for Med ical Migraine Branch (Take 5mg at the beginning of the headache can repeat 2h after if headaches persists). May repeat in 2 hours if needed magnesium 2022-0 Yes [id number] 400mg Take 2 [facility] gluconate 4-05 tablets by [facility] of 200 mg 00:00: mouth 2 [place] tablet 00 (two) Medical times Branch daily. gabapentin 2022-0 Yes [id number] 300mg Take 1 [facility] 300 mg 4-05 capsule by [facility] of capsule 00:00: mouth 3 [place] (three) Medical times Branch daily. rizatriptan 2022-0 Yes [id number] 5mg Take 1 [facility] 5 mg 4-05 tablet by [facility] disintegrat 00:00: mouth as [place] ing tablet 00 needed for Med ical Migraine Branch (Take 5mg at the beginning of the headache can repeat 2h after if headaches persists). May repeat in 2 hours if needed magnesium 2022-0 Yes [id number] 400mg Take 2 [facility] gluconate 4-05 tablets by [facility] of 200 mg 00:00: mouth 2 [place] tablet 00 (two) Medical times Branch daily. gabapentin 2022-0 Yes [id number] 300mg Take 1 [facility] 300 mg 4-05 capsule by [facility] of capsule 00:00: mouth 3 [place] 00 (three) Medical times Branch daily. rizatriptan 2022-0 Yes [id number] 5mg Take 1 [facility] 5 mg 4-05 tablet by [facility] disintegrat 00:00: mouth as [place] ing tablet 00 needed for Med ical Migraine Branch (Take 5mg at the beginning of the headache can repeat 2h after if headaches persists). May repeat in 2 hours if needed magnesium 2022-0 Yes [id number] 400mg Take 2 [facility] gluconate 4-05 tablets by [facility] of 200 mg 00:00: mouth 2 [place] tablet 00 (two) Medical times Branch daily. gabapentin 2-0 Yes [id number] 300mg Take 1 [facility] 300 mg 4-05 capsule by [facility] of capsule 00:00: mouth 3 [place] 00 (three) Medical times Branch daily. rizatriptan 2-0 Yes [id number] 5mg Take 1 [facility] 5 mg 4-05 tablet by [facility] disintegrat 00:00: mouth as [place] ing tablet 00 needed for Med ical Migraine Branch (Take 5mg at the beginning of the headache can repeat 2h after if headaches persists). May repeat in 2 hours if needed magnesium 2022-0 Yes [id number] 400mg Take 2 [facility] gluconate 4-05 tablets by [facility] of 200 mg 00:00: mouth 2 [place] tablet 00 (two) Medical times Branch daily. gabapentin 2022-0 Yes [id number] 300mg Take 1 [facility] 300 mg 4-05 capsule by [facility] capsule 00:00: mouth 3 [place] 00 (three) Medical times Branch daily. rizatriptan 2022-0 Yes [id number] 5mg Take 1 [facility] 5 mg 4-05 tablet by [facility] disintegrat 00:00: mouth as [place] ing tablet 00 needed for Med ical Migraine Branch (Take 5mg at the beginning of the headache can repeat 2h after if headaches persists). May repeat in 2 hours if needed magnesium 2021-0 Yes [id number] 400mg Take 2 [facility] gluconate 4-05 tablets by [facility] of 200 mg 00:00: mouth 2 [place] tablet 00 (two) Medical times Branch daily. gabapentin 2021-2022- No [id number] 300mg Take 1 [facility] 300 mg 4-05 -22 capsule by [facility] of capsule 00:00: 00:00 mouth 3 [place] 00 :00 (three) Medical times Branch daily. rizatriptan 2021-2022- No [id number] 5mg Take 1 [facility] 5 mg 4-05 -22 tablet by [facility] of disintegrat 00:00: 00:00 mouth as [place] ing tablet 00 :00 needed for Med ical Migraine Branch (Take 5mg at the beginning of the headache can repeat 2h after if headaches persists). May repeat in 2 hours if needed magnesium 2021-0 2022- No [id number] 400mg Take 2 [facility] gluconate 4-05 -22 tablets by [facility] of 200 mg 00:00: 00:00 mouth 2 [place] tablet 00 :00 (two) Medical times Branch daily. gabapentin 2021-2022- No [id number] 300mg Take 1 [facility] 300 mg 4-05 - capsule by [facility] of capsule 00:00: 00:00 mouth 3 [place] 00 :00 (three) Medical times Branch daily. rizatriptan 2021-2022- No [id number] 5mg Take 1 [facility] 5 mg 4-05 -22 tablet by [facility] of disintegrat 00:00: 00:00 mouth as [place] ing tablet 00 :00 needed for Med ical Migraine Branch (Take 5mg at the beginning of the headache can repeat 2h after if headaches persists). May repeat in 2 hours if needed magnesium 2021-0 2022- No [id number] 400mg Take 2 [facility] gluconate 4-05 09-22 tablets by [facility] of 200 mg 00:00: 00:00 mouth 2 [place] tablet 00 :00 (two) Medical times Branch daily. gabapentin 2021-2022- No [id number] 300mg Take 1 [facility] 300 mg 4-06 20- capsule by [facility] of capsule 00:00: 00:00 mouth 3 [place] 00 :00 (three) Medical times Branch daily. rizatriptan 2021-0 2022- No [id number] 5mg Take 1 [facility] 5 mg 4-06 20- tablet by [facility] of disintegrat 00:00: 00:00 mouth as [place] ing tablet 00 :00 needed for Med ical Migraine Branch (Take 5mg at the beginning of the headache can repeat 2h after if headaches persists). May repeat in 2 hours if needed magnesium 2021-0 2022- No [id number] 400mg Take 2 [facility] gluconate 4-06 20- tablets by [facility] of 200 mg 00:00: 00:00 mouth 2 [place] tablet 00 :00 (two) Medical times Branch daily. gabapentin 2021-2022- No [id number] 300mg Take 1 [facility] 300 mg 4-06 20- capsule by [facility] of capsule 00:00: 00:00 mouth 3 [place] 00 :00 (three) Medical times Branch daily. rizatriptan 2021-2022- No [id number] 5mg Take 1 [facility] 5 mg 4-06 20- tablet by [facility] of disintegrat 00:00: 00:00 mouth as [place] ing tablet 00 :00 needed for Med ical Migraine Branch (Take 5mg at the beginning of the headache can repeat 2h after if headaches persists). May repeat in 2 hours if needed magnesium 2021-0 2022- No [id number] 400mg Take 2 [facility] gluconate 4-06 20- tablets by [facility] of 200 mg 00:00: 00:00 mouth 2 [place] tablet 00 :00 (two) Medical times Branch daily. gabapentin 2021-2022- No [id number] 300mg Take 1 [facility] 300 mg 4-06 20- capsule by [facility] of capsule 00:00: 00:00 mouth 3 [place] 00 :00 (three) Medical times Branch daily. rizatriptan 2021-0 2022- No [id number] 5mg Take 1 [facility] 5 mg 4-06 20-22 tablet by [facility] of disintegrat 00:00: 00:00 mouth as [place] ing tablet 00 :00 needed for Med ical Migraine Branch (Take 5mg at the beginning of the headache can repeat 2h after if headaches persists). May repeat in 2 hours if needed magnesium 2021-0 2022- No [id number] 400mg Take 2 [facility] gluconate 4-06 20-22 tablets by [facility] of 200 mg 00:00: 00:00 mouth 2 [place] tablet 00 :00 (two) Medical times Branch daily. gabapentin 2021-2022- No [id number] 300mg Take 1 [facility] 300 mg 4-06 20-22 capsule by [facility] of capsule 00:00: 00:00 mouth 3 [place] 00 :00 (three) Medical times Branch daily. rizatriptan 2021-2022- No [id number] 5mg Take 1 [facility] 5 mg 4-06 20-22 tablet by [facility] of disintegrat 00:00: 00:00 mouth as [place] ing tablet 00 :00 needed for Med ical Migraine Branch (Take 5mg at the beginning of the headache can repeat 2h after if headaches persists). May repeat in 2 hours if needed magnesium 2021-0 2022- No [id number] 400mg Take 2 [facility] gluconate 4-06 20-22 tablets by [facility] of 200 mg 00:00: 00:00 mouth 2 [place] tablet 00 :00 (two) Medical times Branch daily. gabapentin 2021-2022- No [id number] 300mg Take 1 [facility] 300 mg 4-06 20- capsule by [facility] of capsule 00:00: 00:00 mouth 3 [place] 00 :00 (three) Medical times Branch daily. rizatriptan 2021-0 2022- No [id number] 5mg Take 1 [facility] 5 mg 4-06 20-22 tablet by [facility] of disintegrat 00:00: 00:00 mouth as [place] ing tablet 00 :00 needed for Med ical Migraine Branch (Take 5mg at the beginning of the headache can repeat 2h after if headaches persists). May repeat in 2 hours if needed magnesium 2021-0 2022- No [id number] 400mg Take 2 [facility] gluconate 4-06 20-22 tablets by [facility] of 200 mg 00:00: 00:00 mouth 2 [place] tablet 00 :00 (two) Medical times Branch daily. gabapentin 2021-0 2022- No [id number] 300mg Take 1 [facility] 300 mg 4-06 20-22 capsule by [facility] of capsule 00:00: 00:00 mouth 3 [place] 00 :00 (three) Medical times Branch daily. rizatriptan 2021-0 2022- No [id number] 5mg Take 1 [facility] 5 mg 4-06 20- tablet by [facility] of disintegrat 00:00: 00:00 mouth as [place] ing tablet 00 :00 needed for Med ical Migraine Branch (Take 5mg at the beginning of the headache can repeat 2h after if headaches persists). May repeat in 2 hours if needed magnesium 2021-0 2022- No [id number] 400mg Take 2 [facility] gluconate 4-06 20- tablets by [facility] of 200 mg 00:00: 00:00 mouth 2 [place] tablet 00 :00 (two) Medical times Branch daily. gabapentin 2021-2022- No [id number] 300mg Take 1 [facility] 300 mg 4-11-03 capsule by [facility] of capsule 00:00: 00:00 mouth 3 [place] 00 :00 (three) Medical times Branch daily. rizatriptan 2021-2022- No [id number] 5mg Take 1 [facility] 5 mg 4-11-03 tablet by [facility] of disintegrat 00:00: 00:00 mouth as [place] ing tablet 00 :00 needed for Med ical Migraine Branch (Take 5mg at the beginning of the headache can repeat 2h after if headaches persists). May repeat in 2 hours if needed magnesium 2021-2022- No [id number] 400mg Take 2 [facility] gluconate 4-11-03 tablets by [facility] of 200 mg 00:00: 00:00 mouth 2 [place] tablet 00 :00 (two) Medical times Branch daily. gabapentin 2021-2022- No [id number] 300mg Take 1 [facility] 300 mg 4-11-03 capsule by [facility] of capsule 00:00: 00:00 mouth 3 [place] 00 :00 (three) Medical times Branch daily. rizatriptan 2021-0 2022- No [id number] 5mg Take 1 [facility] 5 mg 4-06 20-22 tablet by [facility] of disintegrat 00:00: 00:00 mouth as [place] ing tablet 00 :00 needed for Med ical Migraine Branch (Take 5mg at the beginning of the headache can repeat 2h after if headaches persists). May repeat in 2 hours if needed magnesium 2021-0 2022- No [id number] 400mg Take 2 [facility] gluconate 4-05 -22 tablets by [facility] of 200 mg 00:00: 00:00 mouth 2 [place] tablet 00 :00 (two) Medical times Branch daily. artificial 2021- No [id number] 1[drp] Place 1 [facility] tears,hypro 4- 05-11 Drop in [facility] of [place], 00:00: 00:00 [place] 0.5 % 00 :00 as needed Medical ophthalmic for Dry Branch drops eyes. artificial 2021- No [id number] 1[drp] Place 1 [facility] tears,hypro 4- 05-11 Drop in [facility] of mellose, 00:00: 00:00 [place] 0.5 % 00 :00 as needed Medical ophthalmic for Dry [facility] drops eyes. clonazePAM 2021- No [id number] Take no [facility] 1 mg tablet 05-12 more than it y of 00:00: 00:00 1 mg twice [place] 00 :00 daily as Medical needed for Branch anxiety clonazePAM 2021- No [id number] Take no [facility] 1 mg tablet 05-12 more than it y of 00:00: 00:00 1 mg twice [place] 00 :00 daily as Medical needed for Branch anxiety lithium 600 2021- No [id number] 600mg Take 1 [facility] mg capsule 05-11- capsule by it y of 00:00: 00:00 mouth 2 [place] 00 :00 (two) Medical times Branch daily. lithium 600 2021- No [id number] 600mg Take 1 [facility] mg capsule 05-11- capsule by it y of 00:00: 00:00 mouth 2 [place] 00 :00 (two) Medical times Branch daily. ondansetron Yes [id number] 4mg Take 1 [facility] (ZOFRAN 7-22 tablet by ity of ODT) 4 mg 00:00: mouth [place] disintegrat 00 every 8 Medic al ing tablet (eight) Branch hours as needed for Nausea and Vomiting (N/V). ondansetron Yes [id number] 4mg Take 1 [facility] (ZOFRAN 7-22 tablet by ity of ODT) 4 mg 00:00: mouth [place] disintegrat 00 every 8 Medic al ing tablet (eight) Branch hours as needed for Nausea and Vomiting (N/V). ondansetron 2020-0 Yes [id number] 4mg Take 1 [facility] (ZOFRAN 7-22 tablet by ity of ODT) 4 mg 00:00: mouth [place] disintegrat 00 every 8 Medic al ing tablet (eight) Branch hours as needed for Nausea and Vomiting (N/V). ondansetron 2020-0 Yes [id number] 4mg Take 1 [facility] (ZOFRAN 7-22 tablet by ity of ODT) 4 mg 00:00: mouth [place] disintegrat 00 every 8 Medic al ing tablet (eight) Branch hours as needed for Nausea and Vomiting (N/V). ondansetron 2020-0 Yes [id number] 4mg Take 1 [facility] (ZOFRAN 7-22 tablet by ity of ODT) 4 mg 00:00: mouth [place] disintegrat 00 every 8 Medic al ing tablet (eight) Branch hours as needed for Nausea and Vomiting (N/V). ondansetron 2020-0 Yes [id number] 4mg Take 1 [facility] (ZOFRAN 7-22 tablet by ity of ODT) 4 mg 00:00: mouth [place] disintegrat 00 every 8 Medic al ing tablet (eight) Branch hours as needed for Nausea and Vomiting (N/V). ondansetron 2020-0 Yes [id number] 4mg Take 1 [facility] (ZOFRAN 7-22 tablet by ity of ODT) 4 mg 00:00: mouth [place] disintegrat 00 every 8 Medic al ing tablet (eight) Branch hours as needed for Nausea and Vomiting (N/V). ondansetron 2020-0 Yes [id number] 4mg Take 1 [facility] (ZOFRAN 7-22 tablet by ity of ODT) 4 mg 00:00: mouth [place] disintegrat 00 every 8 Medic al ing tablet (eight) Branch hours as needed for Nausea and Vomiting (N/V). ondansetron 1-0 Yes [id number] 4mg Take 1 [facility] (ZOFRAN 7-22 tablet by ity of ODT) 4 mg 00:00: mouth [place] disintegrat 00 every 8 Medic al ing tablet (eight) Branch hours as needed for Nausea and Vomiting (N/V). ondansetron 2020-0 Yes [id number] 4mg Take 1 [facility] (ZOFRAN 7-22 tablet by ity of ODT) 4 mg 00:00: mouth [place] disintegrat 00 every 8 Medic al ing tablet (eight) Branch hours as needed for Nausea and Vomiting (N/V). ondansetron 1-0 Yes [id number] 4mg Take 1 [facility] (ZOFRAN 7-22 tablet by ity of ODT) 4 mg 00:00: mouth [place] disintegrat 00 every 8 Medic al ing tablet (eight) Branch hours as needed for Nausea and Vomiting (N/V). ondansetron 2020-0 Yes [id number] 4mg Take 1 [facility] (ZOFRAN 7-22 tablet by ity of ODT) 4 mg 00:00: mouth [place] disintegrat 00 every 8 Medic al ing tablet (eight) Branch hours as needed for Nausea and Vomiting (N/V). ondansetron 2020-0 Yes [id number] 4mg Take 1 [facility] (ZOFRAN 7-22 tablet by ity of ODT) 4 mg 00:00: mouth [place] disintegrat 00 every 8 Medic al ing tablet (eight) Branch hours as needed for Nausea and Vomiting (N/V). ondansetron 2020-0 Yes [id number] 4mg Take 1 [facility] (ZOFRAN 7-22 tablet by ity of ODT) 4 mg 00:00: mouth [place] disintegrat 00 every 8 Medic al ing tablet (eight) Branch hours as needed for Nausea and Vomiting (N/V). ondansetron 2020-0 Yes [id number] 4mg Take 1 [facility] (ZOFRAN 7-22 tablet by ity of ODT) 4 mg 00:00: mouth [place] disintegrat 00 every 8 Medic al ing tablet (eight) Branch hours as needed for Nausea and Vomiting (N/V). ondansetron 1-0 Yes [id number] 4mg Take 1 [facility] (ZOFRAN 7-22 tablet by ity of ODT) 4 mg 00:00: mouth [place] disintegrat 00 every 8 Medic al ing tablet (eight) Branch hours as needed for Nausea and Vomiting (N/V). ondansetron 2021-0 Yes [id number] 4mg Take 1 [facility] (ZOFRAN 7-22 tablet by ity of ODT) 4 mg 00:00: mouth [place] disintegrat 00 every 8 Medic al ing tablet (eight) Branch hours as needed for Nausea and Vomiting (N/V). ondansetron 2020-0 Yes [id number] 4mg Take 1 [facility] (ZOFRAN 7-22 tablet by ity of ODT) 4 mg 00:00: mouth [place] disintegrat 00 every 8 Medic al ing tablet (eight) Branch hours as needed for Nausea and Vomiting (N/V). ondansetron 2020-0 Yes [id number] 4mg Take 1 [facility] (ZOFRAN 7-22 tablet by ity of ODT) 4 mg 00:00: mouth [place] disintegrat 00 every 8 Medic al ing tablet (eight) Branch hours as needed for Nausea and Vomiting (N/V). ondansetron 2020-0 Yes [id number] 4mg Take 1 [facility] (ZOFRAN 7-22 tablet by ity of ODT) 4 mg 00:00: mouth [place] disintegrat 00 every 8 Medic al ing tablet (eight) Branch hours as needed for Nausea and Vomiting (N/V). ondansetron 2020-0 Yes [id number] 4mg Take 1 [facility] (ZOFRAN 7-22 tablet by ity of ODT) 4 mg 00:00: mouth [place] disintegrat 00 every 8 Medic al ing tablet (eight) Branch hours as needed for Nausea and Vomiting (N/V). ondansetron 2020-0 Yes [id number] 4mg Take 1 [facility] (ZOFRAN 7-22 tablet by ity of ODT) 4 mg 00:00: mouth [place] disintegrat 00 every 8 Medic al ing tablet (eight) Branch hours as needed for Nausea and Vomiting (N/V). ondansetron 2020-0 Yes [id number] 4mg Take 1 [facility] (ZOFRAN 7-22 tablet by ity of ODT) 4 mg 00:00: mouth [place] disintegrat 00 every 8 Medic al ing tablet (eight) Branch hours as needed for Nausea and Vomiting (N/V). ondansetron 2020-0 Yes [id number] 4mg Take 1 [facility] (ZOFRAN 7-22 tablet by ity of ODT) 4 mg 00:00: mouth [place] disintegrat 00 every 8 Medic al ing tablet (eight) Branch hours as needed for Nausea and Vomiting (N/V). ondansetron 2020-0 Yes [id number] 4mg Take 1 [facility] (ZOFRAN 7-22 tablet by ity of ODT) 4 mg 00:00: mouth [place] disintegrat 00 every 8 Medic al ing tablet (eight) Branch hours as needed for Nausea and Vomiting (N/V). ondansetron 2021-0 Yes [id number] 4mg Take 1 [facility] (ZOFRAN 7-22 tablet by ity of ODT) 4 mg 00:00: mouth [place] disintegrat 00 every 8 Medic al ing tablet (eight) Branch hours as needed for Nausea and Vomiting (N/V). ondansetron 2020-0 Yes [id number] 4mg Take 1 [facility] (ZOFRAN 7-22 tablet by ity of ODT) 4 mg 00:00: mouth [place] disintegrat 00 every 8 Medic al ing tablet (eight) Branch hours as needed for Nausea and Vomiting (N/V). ondansetron 2020-0 Yes [id number] 4mg Take 1 [facility] (ZOFRAN 7-22 tablet by ity of ODT) 4 mg 00:00: mouth [place] disintegrat 00 every 8 Medic al ing tablet (eight) Branch hours as needed for Nausea and Vomiting (N/V). ondansetron 2020-0 Yes [id number] 4mg Take 1 [facility] (ZOFRAN 7-22 tablet by ity of ODT) 4 mg 00:00: mouth [place] disintegrat 00 every 8 Medic al ing tablet (eight) Branch hours as needed for Nausea and Vomiting (N/V). ondansetron 2020-0 Yes [id number] 4mg Take 1 [facility] (ZOFRAN 7-22 tablet by ity of ODT) 4 mg 00:00: mouth [place] disintegrat 00 every 8 Medic al ing tablet (eight) Branch hours as needed for Nausea and Vomiting (N/V). ondansetron 2020-0 Yes [id number] 4mg Take 1 [facility] (ZOFRAN 7-22 tablet by ity of ODT) 4 mg 00:00: mouth [place] disintegrat 00 every 8 Medic al ing tablet (eight) Branch hours as needed for Nausea and Vomiting (N/V). ondansetron 1-0 Yes [id number] 4mg Take 1 [facility] (ZOFRAN 7-22 tablet by ity of ODT) 4 mg 00:00: mouth [place] disintegrat 00 every 8 Medic al ing tablet (eight) Branch hours as needed for Nausea and Vomiting (N/V). ondansetron 1-0 Yes [id number] 4mg Take 1 [facility] (ZOFRAN 7-22 tablet by ity of ODT) 4 mg 00:00: mouth [place] disintegrat 00 every 8 Medic al ing tablet (eight) Branch hours as needed for Nausea and Vomiting (N/V). ondansetron 1-0 Yes [id number] 4mg Take 1 [facility] (ZOFRAN 7-22 tablet by ity of ODT) 4 mg 00:00: mouth [place] disintegrat 00 every 8 Medic al ing tablet (eight) Branch hours as needed for Nausea and Vomiting (N/V). ondansetron 2020-0 Yes [id number] 4mg Take 1 [facility] (ZOFRAN 7-22 tablet by ity of ODT) 4 mg 00:00: mouth [place] disintegrat 00 every 8 Medic al ing tablet (eight) Branch hours as needed for Nausea and Vomiting (N/V). ondansetron 1-0 Yes [id number] 4mg Take 1 [facility] (ZOFRAN 7-22 tablet by ity of ODT) 4 mg 00:00: mouth [place] disintegrat 00 every 8 Medic al ing tablet (eight) Branch hours as needed for Nausea and Vomiting (N/V). ondansetron 2020-0 Yes [id number] 4mg Take 1 [facility] (ZOFRAN 7-22 tablet by ity of ODT) 4 mg 00:00: mouth [place] disintegrat 00 every 8 Medic al ing tablet (eight) Branch hours as needed for Nausea and Vomiting (N/V). ondansetron 1-0 Yes [id number] 4mg Take 1 [facility] (ZOFRAN 7-22 tablet by ity of ODT) 4 mg 00:00: mouth [place] disintegrat 00 every 8 Medic al ing tablet (eight) Branch hours as needed for Nausea and Vomiting (N/V). ondansetron 1-0 Yes [id number] 4mg Take 1 [facility] (ZOFRAN 7-22 tablet by ity of ODT) 4 mg 00:00: mouth [place] disintegrat 00 every 8 Medic al ing tablet (eight) Branch hours as needed for Nausea and Vomiting (N/V). ondansetron 2021-0 Yes [id number] 4mg Take 1 [facility] (ZOFRAN 7-22 tablet by ity of ODT) 4 mg 00:00: mouth [place] disintegrat 00 every 8 Medic al ing tablet (eight) Branch hours as needed for Nausea and Vomiting (N/V). ondansetron 2020-0 Yes [id number] 4mg Take 1 [facility] (ZOFRAN 7-22 tablet by ity of ODT) 4 mg 00:00: mouth [place] disintegrat 00 every 8 Medic al ing tablet (eight) Branch hours as needed for Nausea and Vomiting (N/V). ondansetron 2020-0 Yes [id number] 4mg Take 1 [facility] (ZOFRAN 7-22 tablet by ity of ODT) 4 mg 00:00: mouth [place] disintegrat 00 every 8 Medic al ing tablet (eight) Branch hours as needed for Nausea and Vomiting (N/V). ondansetron 2020-0 Yes [id number] 4mg Take 1 [facility] (ZOFRAN 7-22 tablet by ity of ODT) 4 mg 00:00: mouth [place] disintegrat 00 every 8 Medic al ing tablet (eight) Branch hours as needed for Nausea and Vomiting (N/V). ondansetron 2020-0 Yes [id number] 4mg Take 1 [facility] (ZOFRAN 7-22 tablet by ity of ODT) 4 mg 00:00: mouth [place] disintegrat 00 every 8 Medic al ing tablet (eight) Branch hours as needed for Nausea and Vomiting (N/V). ondansetron 2020-0 Yes [id number] 4mg Take 1 [facility] (ZOFRAN 7-22 tablet by ity of ODT) 4 mg 00:00: mouth [place] disintegrat 00 every 8 Medic al ing tablet (eight) Branch hours as needed for Nausea and Vomiting (N/V). ondansetron 2020-0 Yes [id number] 4mg Take 1 [facility] (ZOFRAN 7-22 tablet by ity of ODT) 4 mg 00:00: mouth [place] disintegrat 00 every 8 Medic al ing tablet (eight) Branch hours as needed for Nausea and Vomiting (N/V). ondansetron 2020-0 Yes [id number] 4mg Take 1 [facility] (ZOFRAN 7-22 tablet by ity of ODT) 4 mg 00:00: mouth [place] disintegrat 00 every 8 Medic al ing tablet (eight) Branch hours as needed for Nausea and Vomiting (N/V). ondansetron 2020-0 Yes [id number] 4mg Take 1 [facility] (ZOFRAN 7-22 tablet by ity of ODT) 4 mg 00:00: mouth [place] disintegrat 00 every 8 Medic al ing tablet (eight) Branch hours as needed for Nausea and Vomiting (N/V). ondansetron 2020-0 Yes [id number] 4mg Take 1 [facility] (ZOFRAN 7-22 tablet by ity of ODT) 4 mg 00:00: mouth [place] disintegrat 00 every 8 Medic al ing tablet (eight) Branch hours as needed for Nausea and Vomiting (N/V). ondansetron 2020-0 Yes [id number] 4mg Take 1 [facility] (ZOFRAN 7-22 tablet by ity of ODT) 4 mg 00:00: mouth [place] disintegrat 00 every 8 Medic al ing tablet (eight) Branch hours as needed for Nausea and Vomiting (N/V). ondansetron 2020-0 Yes [id number] 4mg Take 1 [facility] (ZOFRAN 7-22 tablet by ity of ODT) 4 mg 00:00: mouth [place] disintegrat 00 every 8 Medic al ing tablet (eight) Branch hours as needed for Nausea and Vomiting (N/V). ondansetron 2020-0 Yes [id number] 4mg Take 1 [facility] (ZOFRAN 7-22 tablet by ity of ODT) 4 mg 00:00: mouth [place] disintegrat 00 every 8 Medic al ing tablet (eight) Branch hours as needed for Nausea and Vomiting (N/V). ondansetron 2020-0 Yes [id number] 4mg Take 1 [facility] (ZOFRAN 7-22 tablet by ity of ODT) 4 mg 00:00: mouth [place] disintegrat 00 every 8 Medic al ing tablet (eight) Branch hours as needed for Nausea and Vomiting (N/V). ondansetron 2020-0 Yes [id number] 4mg Take 1 [facility] (ZOFRAN 7-22 tablet by ity of ODT) 4 mg 00:00: mouth [place] disintegrat 00 every 8 Medic al ing tablet (eight) Branch hours as needed for Nausea and Vomiting (N/V). ondansetron 2020-0 Yes [id number] 4mg Take 1 [facility] (ZOFRAN 7-22 tablet by ity of ODT) 4 mg 00:00: mouth [place] disintegrat 00 every 8 Medic al ing tablet (eight) Branch hours as needed for Nausea and Vomiting (N/V). ondansetron 2020-0 Yes [id number] 4mg Take 1 [facility] (ZOFRAN 7-22 tablet by ity of ODT) 4 mg 00:00: mouth [place] disintegrat 00 every 8 Medic al ing tablet (eight) Branch hours as needed for Nausea and Vomiting (N/V). ondansetron 2020-0 Yes [id number] 4mg Take 1 [facility] (ZOFRAN 7-22 tablet by ity of ODT) 4 mg 00:00: mouth [place] disintegrat 00 every 8 Medic al ing tablet (eight) Branch hours as needed for Nausea and Vomiting (N/V). ondansetron 2020-0 Yes [id number] 4mg Take 1 [facility] (ZOFRAN 7-22 tablet by ity of ODT) 4 mg 00:00: mouth [place] disintegrat 00 every 8 Medic al ing tablet (eight) Branch hours as needed for Nausea and Vomiting (N/V). ondansetron 2020-0 Yes [id number] 4mg Take 1 [facility] (ZOFRAN 7-22 tablet by ity of ODT) 4 mg 00:00: mouth [place] disintegrat 00 every 8 Medic al ing tablet (eight) Branch hours as needed for Nausea and Vomiting (N/V). ondansetron 2020-0 3- No [id number] 4mg Take 1 [facility] (ZOFRAN 7-22 09-22 tablet by ity of ODT) 4 mg 00:00: 00:00 mouth [place] disintegrat 00 :00 every 8 Medic al ing tablet (eight) Branch hours as needed for Nausea and Vomiting (N/V). ondansetron 2020-0 3- No [id number] 4mg Take 1 [facility] (ZOFRAN 7-22 09-22 tablet by ity of ODT) 4 mg 00:00: 00:00 mouth [place] disintegrat 00 :00 every 8 Medic al ing tablet (eight) Branch hours as needed for Nausea and Vomiting (N/V). ondansetron 2020-0 3- No [id number] 4mg Take 1 [facility] (ZOFRAN 7-22 09-22 tablet by ity of ODT) 4 mg 00:00: 00:00 mouth [place] disintegrat 00 :00 every 8 Medic al ing tablet (eight) Branch hours as needed for Nausea and Vomiting (N/V). ondansetron 2021-0 2023- No [id number] 4mg Take 1 [facility] (ZOFRAN 7-22 09-22 tablet by ity of ODT) 4 mg 00:00: 00:00 mouth [place] disintegrat 00 :00 every 8 Medic al ing tablet (eight) Branch hours as needed for Nausea and Vomiting (N/V). ondansetron 2021-0 2023- No [id number] 4mg Take 1 [facility] (ZOFRAN 7-22 09-22 tablet by ity of ODT) 4 mg 00:00: 00:00 mouth [place] disintegrat 00 :00 every 8 Medic al ing tablet (eight) Branch hours as needed for Nausea and Vomiting (N/V). ondansetron 2021-0 2023- No [id number] 4mg Take 1 [facility] (ZOFRAN 7-22 09-22 tablet by ity of ODT) 4 mg 00:00: 00:00 mouth [place] disintegrat 00 :00 every 8 Medic al ing tablet (eight) Branch hours as needed for Nausea and Vomiting (N/V). ondansetron 2021-0 2023- No [id number] 4mg Take 1 [facility] (ZOFRAN 7-22 09-22 tablet by ity of ODT) 4 mg 00:00: 00:00 mouth [place] disintegrat 00 :00 every 8 Medic al ing tablet (eight) Branch hours as needed for Nausea and Vomiting (N/V). ondansetron 2021-0 2023- No [id number] 4mg Take 1 [facility] (ZOFRAN 7-22 09-22 tablet by ity of ODT) 4 mg 00:00: 00:00 mouth [place] disintegrat 00 :00 every 8 Medic al ing tablet (eight) Branch hours as needed for Nausea and Vomiting (N/V). ondansetron 2021-0 2023- No [id number] 4mg Take 1 [facility] (ZOFRAN 7-22 09-22 tablet by ity of ODT) 4 mg 00:00: 00:00 mouth [place] disintegrat 00 :00 every 8 Medic al ing tablet (eight) Branch hours as needed for Nausea and Vomiting (N/V). ondansetron 2021-0 2023- No [id number] 4mg Take 1 [facility] (ZOFRAN 7-22 09-22 tablet by ity of ODT) 4 mg 00:00: 00:00 mouth [place] disintegrat 00 :00 every 8 Medic al ing tablet (eight) Branch hours as needed for Nausea and Vomiting (N/V). butalbital- 2021- No [id number] 1{tbl} Take 1 [facility] acetaminoph 7-22 05-11 tablet by it y of en-caff 00:00: 00:00 mouth [place] 50-325-40 00 :00 every 6 Medical mg tablet (six) Branch hours as needed for Pain (scale 7-10). butalbital- 2021- No [id number] 1{tbl} Take 1 [facility] acetaminoph 7-22 05-11 tablet by it y of en-caff 00:00: 00:00 mouth [place] 50-325-40 00 :00 every 6 Medical mg tablet (six) Branch hours as needed for Pain (scale 7-10). allopurinoL 2020-0 Yes 100mg Take 100 U nivers 100 mg 6-24 mg by ity of tablet 13:17: mouth [place] [address] daily. Medical Branch atorvastati 2020-0 Yes 10mg Take 10 mg [facility] n 10 mg 6-24 by mouth ity of tablet 13:17: at [place] [address] bedtime. Medical Branch allopurinoL 2020-0 Yes 100mg Take 100 U nivers 100 mg 6-24 mg by ity of tablet 13:17: mouth [place] [address] daily. Medical Branch atorvastati 2020-0 Yes 10mg Take 10 mg [facility] n 10 mg 6-24 by mouth ity of tablet 13:17: at [place] [address] bedtime. Medical Branch allopurinoL 2020-0 Yes 100mg Take 100 U nivers 100 mg 6-24 mg by ity of tablet 13:17: mouth [place] [address] daily. Medical Branch atorvastati 2020-0 Yes 10mg Take 10 mg [facility] n 10 mg 6-24 by mouth ity of tablet 13:17: at [place] [address] bedtime. Medical Branch allopurinoL 2020-0 Yes 100mg Take 100 U nivers 100 mg 6-24 mg by ity of tablet 13:17: mouth [place] 52 daily. Medical Branch atorvastati 2020-0 Yes 10mg Take 10 mg [facility] n 10 mg 6-24 by mouth ity of tablet 13:17: at [place] [address] bedtime. Medical Branch allopurinoL 2020-0 Yes 100mg [...] 13:17: at [place] 52 bedtime. Medical Branch allopurinoL 2020-0 Yes [...] 13:17: at [place] 52 bedtime. Medical Branch allopurinoL 2020-0 Yes [...] by mouth ity of tablet 13:17: at [place] [address] bedtime. Medical Branch allopurinoL 2020-0 Yes 100mg Take 100 U nivers 100 mg 6-24 mg by ity of tablet 13:17: mouth [place] 52 daily. Medical Branch atorvastati 2020-0 Yes 10mg Take 10 mg [facility] n 10 mg 6-24 by mouth ity of tablet 13:17: at [place] [address] bedtime. Medical Branch allopurinoL 2020-0 Yes 100mg Take 100 U nivers 100 mg 6-24 mg by ity of tablet 13:17: mouth [place] 52 daily. Medical Branch atorvastati 2020-0 Yes 10mg Take 10 mg [facility] n 10 mg 6-24 by mouth ity of tablet 13:17: at [place] [address] bedtime. Medical Branch allopurinoL 2020-0 Yes 100mg Take 100 U nivers 100 mg 6-24 mg by ity of tablet 13:17: mouth [place] 52 daily. Medical Branch atorvastati 2020-0 Yes 10mg Take 10 mg [facility] n 10 mg 6-24 by mouth ity of tablet 13:17: at [place] [address] bedtime. Medical Branch allopurinoL 2020-0 Yes 100mg Take 100 U nivers 100 mg 6-24 mg by ity of tablet 13:17: mouth [place] 52 daily. Medical Branch atorvastati 2020-0 Yes 10mg Take 10 mg [facility] n 10 mg 6-24 by mouth ity of tablet 13:17: at [place] [address] bedtime. Medical Branch allopurinoL 2020-0 Yes 100mg Take 100 U nivers 100 mg 6-24 mg by ity of tablet 13:17: mouth [place] 52 daily. Medical Branch atorvastati 2020-0 Yes 10mg Take 10 mg [facility] n 10 mg 6-24 by mouth ity of tablet 13:17: at [place] [address] bedtime. Medical Branch allopurinoL 2020-0 Yes 100mg Take 100 U nivers 100 mg 6-24 mg by ity of tablet 13:17: mouth [place] 52 daily. Medical Branch atorvastati 2020-0 Yes 10mg Take 10 mg [facility] n 10 mg 6-24 by mouth ity of tablet 13:17: at [place] [address] bedtime. Medical Branch allopurinoL 2020-0 Yes 100mg Take 100 U nivers 100 mg 6-24 mg by ity of tablet 13:17: mouth [place] 52 daily. Medical Branch atorvastati 2020-0 Yes 10mg Take 10 mg [facility] n 10 mg 6-24 by mouth ity of tablet 13:17: at [place] [address] bedtime. Medical Branch allopurinoL 2020-0 Yes 100mg [...] by mouth ity of tablet 13:17: at [place] [address] bedtime. Medical Branch allopurinoL 2020-0 Yes 100mg Take 100 U nivers 100 mg 6-24 mg by ity of tablet 13:17: mouth [place] 52 daily. Medical Branch atorvastati 2020-0 Yes 10mg Take 10 mg [facility] n 10 mg 6-24 by mouth ity of tablet 13:17: at [place] [address] bedtime. Medical Branch allopurinoL 2020-0 Yes 100mg Take 100 U nivers 100 mg 6-24 mg by ity of tablet 13:17: mouth [place] 52 daily. Medical Branch atorvastati 2020-0 Yes 10mg Take 10 mg [facility] n 10 mg 6-24 by mouth ity of tablet 13:17: at [place] [address] bedtime. Medical Branch allopurinoL 2020-0 Yes 100mg Take 100 U nivers 100 mg 6-24 mg by ity of tablet 13:17: mouth [place] 52 daily. Medical Branch atorvastati 2020-0 Yes 10mg Take 10 mg [facility] n 10 mg 6-24 by mouth ity of tablet 13:17: at [place] [address] bedtime. Medical Branch allopurinoL 2020-0 Yes 100mg Take 100 U nivers 100 mg 6-24 mg by ity of tablet 13:17: mouth [place] 52 daily. Medical Branch atorvastati 2020-0 Yes 10mg Take 10 mg [facility] n 10 mg 6-24 by mouth ity of tablet 13:17: at [place] [address] bedtime. Medical Branch allopurinoL 2020-0 Yes 100mg [...] 13:17: at [place] 52 bedtime. Medical Branch allopurinoL 2020-0 Yes 100mg Take 100 U nivers 100 mg 6-24 mg by ity of tablet 13:17: mouth [place] 52 daily. Medical Branch atorvastati 2020-0 Yes 10mg Take 10 mg [facility] n 10 mg 6-24 by mouth ity of tablet 13:17: at [place] [address] bedtime. Medical Branch allopurinoL 2020-0 Yes 100mg Take 100 U nivers 100 mg 6-24 mg by ity of tablet 13:17: mouth [place] 52 daily. Medical Branch atorvastati 2020-0 Yes 10mg Take 10 mg [facility] n 10 mg 6-24 by mouth ity of tablet 13:17: at [place] [address] bedtime. Medical Branch allopurinoL 2020-0 Yes 100mg [...] 13:17: at [place] 52 bedtime. Medical Branch allopurinoL 2020-0 Yes [...] 13:17: at [place] 52 bedtime. Medical Branch allopurinoL 2020-0 Yes [...] by mouth ity of tablet 13:17: at [place] [address] bedtime. Medical Branch allopurinoL 2020-0 Yes 100mg Take 100 U nivers 100 mg 6-24 mg by ity of tablet 13:17: mouth [place] 52 daily. Medical Branch atorvastati 2020-0 Yes 10mg Take 10 mg [facility] n 10 mg 6-24 by mouth ity of tablet 13:17: at [place] 52 bedtime. Medical Branch allopurinoL 2020-0 Yes 100mg Take 100 U nivers 100 mg 6-24 mg by ity of tablet 13:17: mouth [place] 52 daily. Medical Branch atorvastati 2020-0 Yes 10mg Take 10 mg [facility] n 10 mg 6-24 by mouth ity of tablet 13:17: at [place] [address] bedtime. Medical Branch allopurinoL 2020-0 Yes 100mg Take 100 U nivers 100 mg 6-24 mg by ity of tablet 13:17: mouth [place] 52 daily. Medical Branch atorvastati 2020-0 Yes 10mg Take 10 mg [facility] n 10 mg 6-24 by mouth ity of tablet 13:17: at [place] [address] bedtime. Medical Branch allopurinoL 2020-0 Yes 100mg Take 100 U nivers 100 mg 6-24 mg by ity of tablet 13:17: mouth [place] 52 daily. Medical Branch atorvastati 2020-0 Yes 10mg Take 10 mg [facility] n 10 mg 6-24 by mouth ity of tablet 13:17: at [place] [address] bedtime. Medical Branch allopurinoL 2020-0 Yes 100mg Take 100 U nivers 100 mg 6-24 mg by ity of tablet 13:17: mouth [place] 52 daily. Medical Branch atorvastati 2020-0 Yes 10mg Take 10 mg [facility] n 10 mg 6-24 by mouth ity of tablet 13:17: at [place] [address] bedtime. Medical Branch allopurinoL 2020-0 Yes 100mg Take 100 U nivers 100 mg 6-24 mg by ity of tablet 13:17: mouth [place] 52 daily. Medical Branch atorvastati 2020-0 Yes 10mg Take 10 mg [facility] n 10 mg 6-24 by mouth ity of tablet 13:17: at [place] [address] bedtime. Medical Branch allopurinoL 2020-0 Yes 100mg Take 100 U nivers 100 mg 6-24 mg by ity of tablet 13:17: mouth [place] 52 daily. Medical Branch atorvastati 2020-0 Yes 10mg Take 10 mg [facility] n 10 mg 6-24 by mouth ity of tablet 13:17: at [place] [address] bedtime. Medical Branch allopurinoL 2020-0 Yes 100mg Take 100 U nivers 100 mg 6-24 mg by ity of tablet 13:17: mouth [place] 52 daily. Medical Branch atorvastati 2020-0 Yes 10mg Take 10 mg [facility] n 10 mg 6-24 by mouth ity of tablet 13:17: at [place] 52 bedtime. Medical Branch allopurinoL 2020-0 Yes 100mg Take 100 U nivers 100 mg 6-24 mg by ity of tablet 13:17: mouth [place] 52 daily. Medical Branch atorvastati 2020-0 Yes 10mg Take 10 mg [facility] n 10 mg 6-24 by mouth ity of tablet 13:17: at [place] [address] bedtime. Medical Branch allopurinoL 2020-0 Yes 100mg Take 100 U nivers 100 mg 6-24 mg by ity of tablet 13:17: mouth [place] 52 daily. Medical Branch atorvastati 2020-0 Yes 10mg Take 10 mg [facility] n 10 mg 6-24 by mouth ity of tablet 13:17: at [place] [address] bedtime. Medical Branch allopurinoL 2020-0 Yes 100mg Take 100 U nivers 100 mg 6-24 mg by ity of tablet 13:17: mouth [place] 52 daily. Medical Branch atorvastati 2020-0 Yes 10mg Take 10 mg [facility] n 10 mg 6-24 by mouth ity of tablet 13:17: at [place] [address] bedtime. Medical Branch allopurinoL 2020-0 Yes 100mg Take 100 U nivers 100 mg 6-24 mg by ity of tablet 13:17: mouth [place] 52 daily. Medical Branch atorvastati 2020-0 Yes 10mg Take 10 mg [facility] n 10 mg 6-24 by mouth ity of tablet 13:17: at [place] [address] bedtime. Medical Branch allopurinoL 2020-0 Yes 100mg Take 100 U nivers 100 mg 6-24 mg by ity of tablet 13:17: mouth [place] 52 daily. Medical Branch atorvastati 2020-0 Yes 10mg Take 10 mg [facility] n 10 mg 6-24 by mouth ity of tablet 13:17: at [place] [address] bedtime. Medical Branch allopurinoL 2020-0 Yes 100mg [...] 13:17: at [place] 52 bedtime. Medical Branch allopurinoL 2020-0 Yes 100mg Take 100 U nivers 100 mg 6-24 mg by ity of tablet 13:17: mouth [place] 52 daily. Medical Branch atorvastati 2020-0 Yes 10mg Take 10 mg [facility] n 10 mg 6-24 by mouth ity of tablet 13:17: at [place] [address] bedtime. Medical Branch allopurinoL 2020-0 Yes 100mg Take 100 U nivers 100 mg 6-24 mg by ity of tablet 13:17: mouth [place] 52 daily. Medical Branch atorvastati 2020-0 Yes 10mg Take 10 mg [facility] n 10 mg 6-24 by mouth ity of tablet 13:17: at [place] [address] bedtime. Medical Branch allopurinoL 2020-0 Yes 100mg Take 100 U nivers 100 mg 6-24 mg by ity of tablet 13:17: mouth [place] 52 daily. Medical Branch atorvastati 2020-0 Yes 10mg Take 10 mg [facility] n 10 mg 6-24 by mouth ity of tablet 13:17: at [place] [address] bedtime. Medical Branch allopurinoL 2020-0 Yes 100mg Take 100 U nivers 100 mg 6-24 mg by ity of tablet 13:17: mouth [place] 52 daily. Medical Branch atorvastati 2020-0 Yes 10mg Take 10 mg [facility] n 10 mg 6-24 by mouth ity of tablet 13:17: at [place] 52 bedtime. Medical Branch allopurinoL 2020-0 Yes 100mg Take 100 U nivers 100 mg 6-24 mg by ity of tablet 13:17: mouth [place] 52 daily. Medical Branch atorvastati 2020-0 Yes 10mg Take 10 mg [facility] n 10 mg 6-24 by mouth ity of tablet 13:17: at [place] 52 bedtime. Medical Branch allopurinoL 2020-0 Yes [...] mouth 2 ity of tablet 13:12: (two) [place] 38 times Medical daily. Branch propranolol 2020-0 [...] mouth 2 ity of tablet 13:12: (two) [place] 38 times Medical daily. Branch propranolol 2020-0 Yes 80mg Take 80 mg [facility] 80 mg 6-24 by mouth 2 ity of tablet 13:12: (two) [place] 38 times Medical daily. Branch propranolol 2020-0 Yes 80mg Take 80 mg [facility] 80 mg 6-24 by mouth 2 ity of tablet 13:12: (two) [place] 38 times Medical daily. Branch propranolol 2020-0 Yes 80mg Take 80 mg [facility] 80 mg 6-24 by mouth 2 ity of tablet 13:12: (two) [place] 38 times Medical daily. Branch propranolol 2020-0 [...] 2022-11-13 117 mm[Hg] University of pressure 14:08:00 [facility] Diastolic blood 2022-11-13 70 mm[Hg] University o f pressure 14:08:00 [facility] Heart rate 2022-11-13 64 /min University 14:08:00 [facility] Respiratory rate 2022-11-13 12 /min University 14:08:00 [facility] Oxygen saturation 2022-11-13 99 /min [facility] [place] [facility] Arterial blood 14:08:00 [facility] by Pulse oximetry Branch Body temperature 2022-11-13 36.39 [place] [facility] of 13:38:00 [facility] Body height 2022-11-13 167.6 cm University of 12:15:00 [facility] Body weight 2022-11-13 95.21 kg University of 12:15:00 [facility] BMI 2022-11-13 33.88 kg/m2 University of 12:15:00 [facility] Systolic blood 2022-11-13 142 mm[Hg] University of pressure 12:15:00 [facility] Diastolic blood 2022-11-13 66 mm[Hg] University o f pressure 12:15:00 [facility] Heart rate 2022-11-13 77 /min University 12:15:00 [facility] Body temperature 2022-11-13 36 [place] [facility] of 12:15:00 [place] [facility] Respiratory rate 2022-11-13 21 /min University of 12:15:00 [facility] Body height 2022-11-13 167.6 cm University of 12:15:00 [facility] Body weight 2022-11-13 95.21 kg University of 12:15:00 [facility] BMI 2022-11-13 33.88 kg/m2 University of 12:15:00 [facility] Oxygen saturation 2022-11-13 95 /min [facility] of in Arterial blood 12:15:00 [place] [facility] by Pulse oximetry Branch Systolic blood 2022-11-03 154 mm[Hg] University of pressure 15:35:00 [facility] Branch Diastolic blood 2022-11-03 86 mm[Hg] University o f pressure 15:35:00 [facility] Heart rate 2022-11-03 86 /min University of 15:35:00 [facility] Body temperature 2022-11-03 37 [place] [facility] of 15:35:00 [facility] Respiratory rate 2022-11-03 18 /min University of 15:35:00 [facility] Body height 2022-11-03 167.6 cm University of 15:35:00 [facility] Body weight 2022-11-03 97.523 kg University of 15:35:00 [facility] BMI 2022-11-03 34.70 kg/m2 University of 15:35:00 [facility] Oxygen saturation 2022-11-03 99 /min [facility] of in Arterial blood 15:35:00 [facility] rogelio by Pulse oximetry Branch Systolic blood 2022-10-19 159 mm[Hg] Provider University of pressure 12:35:00 Notified [facility] Diastolic blood 2022-10-19 85 mm[Hg] Provider University o f pressure 12:35:00 Notified [facility] Heart rate 2022-10-19 94 /min University of 12:35:00 [facility] Body temperature 2022-10-19 36.78 [place] [facility] of 12:33:00 [facility] Respiratory rate 2022-10-19 16 /min University of 12:33:00 [facility] Body height 2022-10-19 167.6 cm University of 12:33:00 [facility] Body weight 2022-10-19 96.616 kg University of 12:33:00 [facility] BMI 2022-10-19 34.38 kg/m2 University of 12:33:00 [facility] Branch Oxygen saturation 2022-10-19 98 /min University of in Arterial blood 12:33:00 [place] [facility] by Pulse oximetry Branch Systolic blood 2022-11-13 117 mm[Hg] University of pressure 14:08:00 [place] [facility] Diastolic blood 2022-11-13 70 mm[Hg] University o f pressure 14:08:00 [facility] Branch Heart rate 2022-11-13 64 /min University of 14:08:00 [facility] Branch Respiratory rate 2022-11-13 12 /min University of 14:08:00 [facility] Branch Oxygen saturation 2022-11-13 99 /min University of in Arterial blood 14:08:00 [place] [facility]i rogel[facility] by Pulse oximetry Branch Body temperature 2022-11-13 36.39 [facility] [facility] of 13:38:00 [facility] Body height 2022-11-13 167.6 cm University of 12:15:00 [facility] Body weight 2022-11-13 95.21 kg University of 12:15:00 [facility] BMI 2022-11-13 33.88 kg/m2 University of 12:15:00 [facility] Systolic blood 2022-11-03 154 mm[Hg] University of pressure 15:35:00 [facility] Branch Diastolic blood 2022-11-03 86 mm[Hg] University o f pressure 15:35:00 [facility] Heart rate 2022-11-03 86 /min University of 15:35:00 [facility] Body temperature 2022-11-03 37 [place] [facility] of 15:35:00 [facility] Respiratory rate 2022-11-03 18 /min University of 15:35:00 [facility] Body height 2022-11-03 167.6 cm University of 15:35:00 [facility] Body weight 2022-11-03 97.523 kg University of 15:35:00 [facility] BMI 2022-11-03 34.70 kg/m2 University of 15:35:00 [facility] Oxygen saturation 2022-11-03 99 /min University of in Arterial blood 15:35:00 [place] [facility]i rogel[facility] by Pulse oximetry Branch Systolic blood 2022-10-04 149 mm[Hg] University of pressure 14:26:00 [facility] Branch Diastolic blood 2022-10-04 76 mm[Hg] University o f pressure 14:26:00 [facility] Heart rate 2022-10-04 78 /min University of 14:26:00 [facility] Branch Respiratory rate 2022-10-04 18 /min University of 14:21:00 [facility] Branch Body height 2022-10-04 167.6 cm University of 14:21:00 [facility] Branch Body weight 2022-10-04 96.843 kg University of 14:21:00 [facility] BMI 2022-10-04 34.46 kg/m2 University of 14:21:00 [facility] Branch Systolic blood 2022-07-26 135 mm[Hg] University of pressure 13:22:00 [facility] Branch Diastolic blood 2022-07-26 78 mm[Hg] University o f pressure 13:22:00 [facility] Heart rate 2022-07-26 85 /min University of 13:22:00 [facility] Branch Respiratory rate 2022-07-26 18 /min University of 13:22:00 [facility] Body height 2022-07-26 167.6 cm University of 13:22:00 [facility] Body weight 2022-07-26 97.523 kg University of 13:22:00 [facility] BMI 2022-07-26 34.70 kg/m2 University of 13:22:00 [facility] Systolic blood 2022-02-15 131 mm[Hg] University of pressure 14:59:00 [facility] Branch Diastolic blood 2022-02-15 70 mm[Hg] University o f pressure 14:59:00 [facility] Heart rate 2022-02-15 81 /min University of 14:59:00 [facility] Branch Respiratory rate 2022-02-15 18 /min University of 14:59:00 [facility] Branch Body height 2022-02-15 167.6 cm University of 14:59:00 [facility] Branch Body weight 2022-02-15 102.967 kg University of 14:59:00 [facility] BMI 2022-02-15 36.64 kg/m2 University of 14:59:00 [facility] Branch Respiratory rate 2022-01-11 18 /min University of 17:11:00 [facility] Branch Body height 2022-01-11 167.6 cm University of 17:11:00 [facility] Body weight 2022-01-11 100.699 kg University of 17:11:00 [facility] BMI 2022-01-11 35.83 kg/m2 University of 17:11:00 [facility] Systolic blood 2021-08-24 133 mm[Hg] University of pressure 14:24:00 [facility] Diastolic blood 2021-08-24 73 mm[Hg] [facility] o f pressure 14:24:00 [facility] Heart rate 2021-08-24 69 /min University of 14:24:00 [facility] Respiratory rate 2021-08-24 18 /min University of 14:24:00 [facility] Body height 2021-08-24 167.6 cm University of 14:24:00 [facility] Body weight 2021-08-24 100.245 kg University of 14:24:00 [facility] BMI 2021-08-24 35.67 kg/m2 University 14:24:00 [facility] Oxygen saturation 2021-06-07 96 /min [facility] in Arterial blood 15:30:00 [facility] by Pulse oximetry [place] Body temperature 2021-06-07 37.44 Verna [facility] 14:20:30 [facility] Procedures Procedure Date / Time Performing Source Performed Clinician SURGICAL PATHOLOGY EXAM 2022-11-13 Dominic Keita [facility] of 13:05:00 [facility] ESOPHAGOGASTRODUODENOSCOPY 2022-11-13 Dominic Keita [facility] versity of 12:47:00 [facility] COLONOSCOPY 2022-11-13 [facility] of 12:47:00 [facility] ESOPHAGOGASTRODUODENOSCOPY 2022-11-13 Dominic Keita [facility] versity of 12:47:00 [facility] COLONOSCOPY 2022-11-13 [facility] of 12:47:00 [facility] COLONOSCOPY (ENDO) 2022-11-13 Jae Holloway [employer] of 12:28:53 [facility] COLONOSCOPY (ENDO) 2022-11-13 [address] [employer] of 12:28:53 [facility] COLONOSCOPY (ENDO) 2022-11-13 Jewel [facility] of 12:28:53 [facility] EGD (ENDO) 2022-11-13 Jae Holloway [facility] of 12:19:29 [facility] EGD (ENDO) 2022-11-13 Jewel [facility] of 12:19:29 [facility] EGD (ENDO) 2022-11-13 [address] [employer] of 12:19:29 [facility] CONSENT/REFUSAL FOR DIAGNOSIS AND 2022-11-13 [facility] 12:17:09 Unassigned, No [facility] CONSENT/REFUSAL FOR DIAGNOSIS AND 2022-11-13 [facility] 12:17:09 Unassigned, No [facility] ASSIGNMENT OF BENEFITS 2022-11-13 Doctor [facility] y of 11:59:03 Unassigned, No [facility] ASSIGNMENT OF BENEFITS 2022-11-13 Doctor [facility] of 11:59:03 Unassigned, No [facility] ENDOSCOPY PROCEDURE DOCUMENTATION 2022-11-13 [facility] 05:01:00 Unassigned, No [facility] ENDOSCOPY PROCEDURE DOCUMENTATION 2022-11-13 [facility] 05:01:00 Unassigned, No [facility] COMP. METABOLIC PANEL (65473) 2022-11-03 [facility] 16:24:00 [facility] CBC WITH DIFF 2022-11-03 [facility] 16:24:00 [facility] POCT TEST 2022-11-03 [facility] 16:24:00 [facility] CBC WITH DIFF 2022-11-03 Honey Newmanala Niko [facility] 16:24:00 [facility] POCT TEST 2022-11-03 [facility] Niko [facility] 16:24:00 [facility] COMP. METABOLIC PANEL (67204) 2022-11-03 [facility] 16:24:00 [facility] URINALYSIS 2022-11-03 Dora Newman [facility] 16:18:00 [facility] URINALYSIS 2022-11-03 Dora Newman [facility] 16:18:00 [facility] RAPID STREP SCREEN FOR GROUP A 2022-11-03 Dora Newman [facility] 16:14:00 [facility] RAPID STREP SCREEN FOR GROUP A 2022-11-03 Dora Newman [facility] 16:14:00 [facility] THROAT CULTURE 2022-11-03 Dora Newman [facility] 16:14:00 [facility] CONSENT/REFUSAL FOR DIAGNOSIS AND 2022-11-03 [facility] TREATMENT 15:27:05 Unassigned, No [facility] CONSENT/REFUSAL FOR DIAGNOSIS AND 2022-11-03 [facility] 15:27:05 Unassigned, No [facility] EMERGENCY SERVICES AGREEMENTS AND 2022-11-03 [facility] of AUTHORIZATIONS 05:01:00 Unassigned, No [facility] HELICOBACTER PYLORI ANTIGEN, FECAL 2022-10-19 [facility] of BY EIA 13:44:00 [facility] HELICOBACTER PYLORI ANTIGEN, FECAL 2022-10-19 [facility] BY EIA 13:44:00 [facility] FERRITIN SERUM 2022-10-19 [facility] of 13:35:00 [facility] IRON PANEL 2022-10-19 [facility] of 13:35:00 [facility] CELIAC SCREEN 2022-10-19 [facility] 13:35:00 [facility] LAB ONLY CELIAC SCREEN IGA 2022-10-19 [facility] ersity of 13:35:00 [facility] IRON PANEL 2022-10-19 [facility] of 13:35:00 [facility] CELIAC SCREEN 2022-10-19 [facility] of 13:35:00 [facility] FERRITIN SERUM 2022-10-19 [facility] of 13:35:00 [facility] LAB ONLY CELIAC SCREEN IGA 2022-10-19 [facility] ersity of 13:35:00 [facility] DISCLOSURE AND CONSENT, MEDICAL 2022-10-19 [facility] of AND SURGICAL PROCEDURES 05:01:00 Unassigned, No [facility] dical Name Branch DISCLOSURE AND CONSENT, MEDICAL 2022-10-19 [facility] of AND SURGICAL PROCEDURES 05:01:00 Unassigned, No [facility] dical Name Branch REFERRAL- REQUEST/RESPONSE 2022-10-12 Doctor Mary rsity of 05:01:00 Unassigned, No [facility] REFERRAL- REQUEST/RESPONSE 2022-10-12 Doctor Unive rsity of 05:01:00 Unassigned, No [facility] Branch THYROID STIMULATING HORMONE 2022-10-05 Rosalind Freed Uni versity of 15:15:00 [facility] COMP. METABOLIC PANEL (65371) 2022-10-05 Rosalind Freed U niversity of 15:15:00 [facility] LIPID PANEL (74344)(TOTAL 2022-10-05 Rosalind Freed rsity of CHOLESTEROL, TRIGLYCERIDES, HDL) 15:15:00 [facility] LITHIUM 2022-10-05 Sara O[address] [facility] [employer] of 15:15:00 [facility] CBC WITH DIFF 2022-10-05 Abdiaziz, Rosalind University of 15:15:00 [facility] GLYCOSYLATED HEMOGLOBIN (A1C) 2022-10-05 Abdiaziz, Rosalind U niversity of 15:15:00 [facility] CBC WITH DIFF 2022-10-05 Freed, Rosalind University of 15:15:00 [facility] COMP. METABOLIC PANEL ([id number]) 2022-10-05 Rosalind Freed U niversity of 15:15:00 [facility] GLYCOSYLATED HEMOGLOBIN (A1C) 2022-10-05 Abdiaziz, Rosalind U niversity of 15:15:00 [facility] LIPID PANEL (28435)(TOTAL 2022-10-05 Rosalind Freed rsity of CHOLESTEROL, TRIGLYCERIDES, HDL) 15:15:00 [facility] THYROID STIMULATING HORMONE 2022-10-05 Rosalind Freed Uni versity of 15:15:00 [facility] LITHIUM 2022-10-05 Sara [place] [facility] of 15:15:00 [facility] ASSIGNMENT OF BENEFITS 2022-10-04 Doctor Universit y of 14:17:30 Unassigned, No [place] [facility] ASSIGNMENT OF BENEFITS 2022-10-04 Doctor Universit y of 14:17:30 Unassigned, No [facility] LITHIUM 2022-07-26 Chu [facility] of 14:49:00 [facility] PATIENT FINANCIAL POLICY 2022-07-26 Doctor Un iversity of 13:16:12 Unassigned, No [facility] Branch [facility] PATIENT FINANCIAL POLICY 2022-07-26 Doctor Un iversity of 13:16:12 Unassigned, No [place] [facility] EXTERNAL PROVIDER RECORDS 2022-04-08 Doctor Univer sity of 06:01:00 Unassigned, No [facility] EXTERNAL PROVIDER RECORDS 2022-04-08 Doctor Univer sity of 06:01:00 Unassigned, No [facility] EXTERNAL PROVIDER RECORDS 2022-02-21 Doctor Univer sity of 06:01:00 Unassigned, No [facility] EXTERNAL PROVIDER RECORDS 2022-02-21 Doctor Univer sity of 06:01:00 Unassigned, No [facility] LITHIUM 2022-02-15 [facility] of 15:58:00 [facility] CONSENT/REFUSAL FOR DIAGNOSIS AND 2022-01-11 Doctor [facility] 17:10:16 Unassigned, No [facility] CONSENT/REFUSAL FOR DIAGNOSIS AND 2022-01-11 Doctor [facility] 17:10:16 Unassigned, No [facility] EXTERNAL PROVIDER RECORDS 2020-11-26 Doctor Univer sity of 05:01:00 Unassigned, No [facility] Encounters Start End Encounter Admission Attending Care Care Encounter Source Date/Time Date/Time Type Type Clinicians Facility Department ID 2020-12-13 Emergency [facility] [id number] Univers 10:09:54 ity of [facility] 2020-12-11 Emergency [facility] [id number] Univers 04:02:45 ity of [facility] 2023-01-15 2023-01-15 Telephone Vanessakarl, UNIVERSIT 1.2.840.114 10 [id number] Univers 00:00:00 00:00:00 [facility] 350.1.13.10 ity of [facility] 4.2.7.2.686 [facility] [id number] [facility] 071 Branch 2022-12-29 2022-12-29 Outpatient R JENNY ARRIAGA [facility] 10 [id number] Univers 09:30:00 09:30:00 JENNY ARRIAGA i ty of [facility] 2022-12-29 2022-12-29 Telephone Vaness[place]arl, UNIVERSIT 1.2.840.114 10 [id number] Univers 00:00:00 00:00:00 [facility] 350.1.13.10 ity of [place] [id number] 2022-12-29 2022-12-29 [facility] 1.2.840.114 10 [id number] Univers 00:00:00 00:00:00 [facility] 350.1.13.10 ity of [facility] [place] [id number] [address] 2022-12-20 2022-12-20 Outpatient R [facility] [id number] Univers 16:00:00 16:46:31 ity of [facility] 2022-12-20 2022-12-20 Outpatient [facility] [id number] Robert 09:49:08 09:49:08 1108 F Viraj 2022-12-19 2022-12-19 Travel 1.2.840.1 1.2.212.454 [id number] Univers 00:00:00 00:00:00 83517.1.1 350.1.13.10 ity of 3.104.2.7 [place].3.698 [place] .3.517[place] 084.8 Medica l .8 [place] 2022-12-18 2022-12-18 Outpatient R [facility] [id number] Univers 09:30:00 09:30:00 ity of [facility] 2022-12-18 2022-12-18 [facility] 1.2.840.114 10 [id number] Univers 00:00:00 00:00:00 [facility] 350.1.13.10 ity of [facility] [place] [id number] [address] 2022-12-14 2022-12-14 Patient Doctor 1.2.840.3 [id number] Univers 00:00:00 00:00:00 Secure Msg Unassigned, 47519.1.1 ity of [place] 3.104.2.7 [place] .3.757493 Medica l .8 [place] 2022-12-11 2022-12-11 Outpatient R [facility] [id number] Univers 08:45:00 08:45:00 ity of [facility] 2022-12-10 2022-12-10 Outpatient GC_GCBZW_Ka PRIV PRIV [id number] [facility] 00:00:00 00:00:00 mauricioyolande_Chas [id number] Medic al 2022-12-08 2022-12-08 Outpatient R JENNY ARRIAGA [facility] [id number] Univers 15:30:00 15:30:00 JENNY ARRIAGA i ty of [facility] 2022-12-06 2022-12-06 Outpatient R ALLIEYANELIS, [facility] [id number] Univers 08:00:00 08:00:00 AIHAM ity of [facility] 2022-11-29 2022-11-29 Telephone Muftah, 1.2.840.0 [id number] Univers 00:00:00 00:00:00 Abdklarissaah 66287.1.1 ity of [place] 3.104.2.7 [place] .3.820324 Medica l .8 Branch 2022-11-27 2022-11-27 Telephone Muftah, 1.2.840.1 [id number] Univers 00:00:00 00:00:00 Abdullah 10251.1.1 ity of [place] 3.104.2.7 [place] .3.803977 Medica l .8 Branch 2022-11-27 2022-11-27 Telephone Muftah, 1.2.840.0 [id number] Univers 00:00:00 00:00:00 Abdullah 96940.1.1 ity of [place] 3.104.2.7 [place] .3.411651 Medica l .8 Branch 2022-11-23 2022-11-23 Telephone Muftah, 1.2.840.0 [id number] 107 [id number] Univers 00:00:00 00:00:00 Abdullah 27887.1.1 ity of [place] 3.104.2.7 [place] .3.756999 Medica l .8 Branch 2022-11-23 2022-11-23 Telephone Consuelo, 1.2.840.8 [id number] Univers 00:00:00 00:00:00 Abdklarissaah 89161.1.1 ity of [place] 3.104.2.7 [place] .3.345917 Medica l .8 Branch 2022-11-22 2022-11-22 Outpatient R [facility] [id number] Univers 09:30:00 09:30:00 ity of [facility] 2022-11-16 2022-11-16 Telephone Consuelo, 1.2.840.3 [id number] Univers 00:00:00 00:00:00 Elidia 97427.1.1 ity of [place] 3.104.2.7 [place] .3.715301 Medica l .8 Branch 2022-11-16 2022-11-16 Patient CATHY Keita 1.2.840.114 10 [id number] Univers 00:00:00 00:00:00 Secure Msg Dominic Y HEALTH 350.1.13.10 ity of [place] 4[place] [id number] [facility] 071 [place] 2022-11-13 2022-11-13 [facility] GICarlo [id number] Univers 06:59:00 09:48:00 DOMINIC ity of [facility] 2022-11-13 2022-11-13 [facility], 1.2.840.8 [id number] Univers 06:59:00 09:48:00 Encounter Dominic 19024.1.1 it y of 3.104.2.7 [place] .3.856775 Medica l .8 Branch 2022-11-13 2022-11-13 Anesthesia Hunter Cruz 1.2.840.1 [id number] Univers 07:58:00 08:33:00 Event Ting Grissom 43833.1.1 i ty of 3.104.2.7 [place] .3.790690 Medica l .8 Branch 2022-11-13 2022-11-13 Surgery [facility], 1.2.840.4 [id number] Univers 07:15:00 08:15:00 Dominic 00687.1.1 ity of 3.104.2.7 [place] .3.920083 Medica l .8 Branch 2022-11-13 2022-11-13 Orders Doctor 1.2.840.9 [id number] Univers 00:00:00 00:00:00 Only Unassigned, 07560.1.1 [place] 3.104.2.7 [place] .3.354787 Medica l .8 Branch 2022-11-13 2022-11-13 Telephone Parupelizabeth, [facility] 1.2.840.114 [id number] Univers 00:00:00 00:00:00 Dominic ICAL 350.1.13.10 it y of SCIENCES 4.2.7.2.686 Iam as BLDG [id number] Medi rogelio 020 [place] 2022-11-13 2022-11-13 Travel 1.2.840.1 1.2.111.179 [id number] Univers 00:00:00 00:00:00 16724.1.1 350.1.13.10 ity of 3.104.2.7 4.[place].3.698 [place] .3.712571 084.8 Medica l .8 [place] 2022-11-10 2022-11-10 Outpatient R RADIOLOGY [facility] [id number] Univers 00:00:00 00:00:00 ity of [facility] 2022-11-10 2022-11-10 Patient Parupudi, 1.2.840.4 [id number] Univers 00:00:00 00:00:00 Secure Msg Dominic 45650.1.1 i ty of 3.104.2.7 [place] .3.617293 Medica l .8 [place] 2022-11-09 2022-11-09 Patient Doctor 1.2.840.1 [id number] Univers 00:00:00 00:00:00 Secure Msg Unassigned, 98227.1.1 [place]y of [place] 3.104.2.7 [place] .3.248785 Medica l .8 Branch 2022-11-07 2022-11-07 Patient Doctor 1.2.840.8 [id number] Univers 00:00:00 00:00:00 Secure Unassigned, 17044.1.1 ity of [place] 3.104.2.7 [place] .3.207239 Medica l .8 Branch 2022-11-03 2022-11-03 Emergency X TRENT, [facility] ERT [id number] Univers 10:36:00 13:16:00 DORA ity of [facility] 2022-11-03 2022-11-03 Emergency Drever, 1.2.840.7 [id number] Univers 10:36:00 13:16:00 Dora G 48329.1.1 ity of 3.104.2.7 [place] .3.344195 Medica l .8 Branch 2022-11-03 2022-11-03 Travel 1.2.840.1 1.2.292.241 [id number] [id number] Univers 00:00:00 00:00:00 81191.1.1 350.1.13.10 ity of 3.104.2.7 4.[place].7.3.698 [place] .3.179114 084.8 Medica l .8 Branch 2022-10-30 2022-10-30 Case Consuelo, 1.2.840.0 [id number] Univers 00:00:00 00:00:00 Management Elidia 24638.1.1 ity of [place] 3.104.2.7 [place] .3.941684 Medica l .8 Branch 2022-10-19 2022-10-19 Logistics Operations Director Jewel Lindsey 1.2.840.1 1 [id number] Univers 08:30:00 08:45:00 Visit [facility] 24209.1.1 ity of 3.104.2.7 [place] .3.552559 Medica l .8 Branch 2022-10-19 2022-10-19 Outpatient R GUERLINE [facility] [id number] Univers 07:30:00 08:15:30 JEWEL ity of [facility] 2022-10-19 2022-10-19 Office Jewel Lindsey Tim 1.2.840.1 [id number] Univers 07:30:00 08:15:30 Visit Elidia Cordero 02997.1.1 ity of 3.104.2.7 [place] .3.421482 Medica l .8 Branch 2022-10-19 2022-10-19 Orders Doctor 1.2.840.5 [id number] Univers 00:00:00 00:00:00 Only Unassigned, 54158.1.1 ity of [place] 3.104.2.7 [place] .3.999580 Medica l .8 Branch 2022-10-18 2022-10-18 Travel 1.2.840.1 1.2.100.148 [id number] Univers 00:00:00 00:00:00 27480.1.1 350.1.13.10 ity of 3.104.2.7 4.[place].7.3.698 [place] .3.723191 084.8 Medica l .8 [place] 2022-10-12 2022-10-12 Outpatient [facility] [id number] Robert 09:56:06 09:56:06 0831 F Viraj 2022-10-12 2022-10-12 Orders Doctor 1.2.840.4 [id number] Univers 00:00:00 00:00:00 Only Unassigned, 62790.1.1 ity of [place] 3.104.2.7 [place] .3.756841 Medica l .8 [place] 2022-10-05 2022-10-05 Logistics Operations Director Kath Parra 1.2.840.5 [id number] Univers 10:15:00 10:30:00 Visit [facility] Main 93504.1.1 ity of 3.104.2.7 [place] .3.928211 Medica l .8 [place] 2022-10-05 2022-10-05 Outpatient R AIDA [facility] [id number] [facility] 10:15:00 10:15:00 KATH ity of [facility] 2022-10-04 2022-10-04 Outpatient R LARISSA, [facility] [id number] Univers 09:30:00 10:30:11 DERRELL ity o f [facility] 2022-10-04 2022-10-04 Orders Doctor 1.2.840.2 [id number] Univers 00:00:00 00:00:00 Only Unassigned, 81159.1.1 ity of [place] 3.104.2.7 [place] .3.973542 Medica l .8 [place] 2022-10-04 2022-10-04 Travel 1.2.840.1 1.2.555.332 [id number] [id number] Univers 00:00:00 00:00:00 95732.1.1 350.1.13.10 ity of 3.104.2.7 4.[place].7.3.698 [place] .3.258271 084.8 Medica l .8 [place] 2022-10-02 2022-10-02 Travel 1.2.840.1 1.2.794.924 [id number] [id number] Univers 00:00:00 00:00:00 96434.1.1 350.1.13.10 ity of 3.104.2.7 4.[place].7.3.698 [place] .3.619367 084.8 Medica l .8 [place] 2022-09-06 2022-09-06 Outpatient R SARA OKEEFE [facility] [id number] Univers 08:45:00 08:45:00 SARA OKEEFE ity of [facility] 2022-09-06 2022-09-06 Travel 1.2.840.1 1.2.623.243 [id number] Univers 00:00:00 00:00:00 40919.1.1 350.1.13.10 ity of 3.104.2.7 4.2.7.3.698 [place] .3.844512 084.8 Medica l .8 [place] 2022-07-26 2022-07-26 Logistics Operations Director Pathology 1.2.840.7 [id number] Univers 11:00:00 11:15:00 Visit Pcp-Lab 90500.1.1 ity of 3.104.2.7 [place] .3.102895 Medica l .8 [place] 2022-07-26 2022-07-26 Outpatient SARA DELGADILLO [facility] [id number] Univers 08:45:00 09:37:46 KACIE SARA [facility] 2022-07-26 2022-07-26 Orders Doctor 1.2.840.2 [id number] Univers 00:00:00 00:00:00 Only Unassigned, 93157.1.1 ity of [place] 3.104.2.7 [place] .3.098009 Medica l .8 [place] 2022-07-26 2022-07-26 Travel 1.2.840.1 1.2.696.277 [id number] [id number] Univers 00:00:00 00:00:00 87062.1.1 350.1.13.10 ity of 3.104.2.7 4.[place].7.3.698 [place] .3.202524 084.8 Medica l .8 [place] 2022-07-24 2022-07-24 Outpatient SFA SFA [id number] Robert 13:24:12 13:24:12 0612 [facility] 2022-06-27 2022-06-27 Outpatient SFA SFA [id number] Robert 13:49:18 13:49:18 0516 [facility] 2022-06-21 2022-06-21 Outpatient SFA SFA [id number] Robert 08:52:50 08:52:50 0510 [facility] 2022-06-15 2022-06-15 Outpatient SFA SFA [id number] Robert 15:23:34 15:23:34 0504 [facility] 2022-05-31 2022-05-31 Outpatient SUKHJINDER DELGADILLOBERLY [facility] [id number] [facility] 08:45:00 08:45:00 KACIESUKHJINDERSARA [facility] 2022-05-30 2022-05-30 Outpatient SFA SFA [id number] Robert 11:55:27 11:55:27 0418 [facility] 2022-05-23 2022-05-23 Outpatient [facility] [id number] Robert 11:17:29 11:17:29 0411 F Sharon 2022-05-12 2022-05-12 Outpatient [facility] [id number] Robert 08:06:11 08:06:11 0331 F Sharon 2022-05-11 2022-05-11 Outpatient [facility] [id number] Robert 13:45:44 13:45:44 0330 F Sharon 2022-04-08 2022-04-08 Orders Doctor 1.2.840.2 [id number] Univers 00:00:00 00:00:00 Only Unassigned, 47364.1.1 ity of [place] 3.104.2.7 [place] .3.884759 Medica l .8 [place] 2022-02-21 2022-02-21 Orders Doctor 1.2.840.6 [id number] Univers 00:00:00 00:00:00 Only Unassigned, 04219.1.1 ity of [place] 3.104.2.7 [place] .3.325797 Medica l .8 [place] 2022-02-15 2022-02-15 Logistics Operations Director Pathology 1.2.840.1 [id number] Univers 13:30:00 13:45:00 Visit Pcp-Lab 79681.1.1 ity of 3.104.2.7 [place] .3.813379 Medica l .8 [place] 2022-02-15 2022-02-15 Outpatient R LARISSA, [facility] [id number] Univers 08:45:00 10:52:26 DERRELL ity o f [facility] 2022-02-15 2022-02-15 Travel 1.2.840.1 1.2.494.105 [id number] Univers 00:00:00 00:00:00 77990.1.1 350.1.13.10 ity of 3.104.2.7 4[place].7.3.698 [place] .3.934962 084.8 Medica l .8 [place] 2022-01-11 2022-01-11 Outpatient R SARA OKEEFE [facility] [id number] Univers 11:00:00 12:39:46 SARA OKEEFE dl [facility] 2022-01-11 2022-01-11 Orders Doctor 1.2.840.6 [id number] Univers 00:00:00 00:00:00 Only Unassigned, 50932.1.1 ity of [place] 3.104.2.7 [place] .3.155855 Medica l .8 [place] 2022-01-11 2022-01-11 Travel 1.2.840.1 1.2.579.633 [id number] Univers 00:00:00 00:00:00 86146.1.1 350.1.13.10 ity of 3[place] .3.985598 084.8 Medica l .8 [place] 2021-11-24 2021-11-24 Outpatient R QUENTIN [facility] [id number] Univers 09:30:00 09:30:00 IGOR waletrs [facility] 2021-11-16 2021-11-16 Outpatient R SARA OKEEFE [facility] [id number] Univers 11:00:00 11:00:00 SARA OKEEFE [facility] 2021-10-26 2021-10-26 Outpatient R SELF [facility] [id number] Univers 08:00:00 08:00:00 DERRELL walters [facility] 2021-10-20 2021-10-20 Outpatient R QUENTIN [facility] [id number] Univers 10:00:00 10:00:00 IGOR walters [facility] 2021-10-03 2021-10-03 Outpatient R JENNIFER [facility] [id number] Univers 14:30:00 14:30:00 REX [facility] 2021-09-21 2021-09-21 Outpatient R SELF, [facility] [id number] Univers 09:30:00 09:30:00 DERRELL walters [facility] 2021-08-24 2021-08-24 Outpatient R LARISSA, [facility] [id number] Univers 09:30:00 10:41:34 DERRELL martinez [facility] 2021-08-24 2021-08-24 Travel 1.2.840.1 1.2.363.975 [id number] Univers 00:00:00 00:00:00 69930.1.1 350.1.13.10 [place]y [place] 3[place] .3.515947 084.8 Medica l .8 [place] 2021-07-25 2021-07-25 Outpatient R SELF, [facility] [id number] Univers 09:00:00 09:00:00 DERRELL martinez [facility] 2021-06-22 2021-06-22 [facility] [id number] Univers 11:15:00 12:18:05 SARA OKEEFE [facility] 2021-06-22 2021-06-22 Outpatient R SUKHJINDER OKEEFEBERLY [facility] [id number] Univers 11:15:00 11:15:00 SARA OKEEFE [facility] 2021-06-22 2021-06-22 Travel 1.2.840.1 [id number] [id number] Univers 00:00:00 00:00:00 42046.1.1 350.1.13.10 it[place] 3[place]104.2[place] .3.119667 084.8 Medica l .8 [place] 2021-06-20 2021-06-20 Outpatient R SELF, [facility] [id number] Univers 11:15:00 11:15:00 DERRELL walters [facility] 2021-06-20 2021-06-20 Outpatient R SELF, [facility] [id number] Univers 11:15:00 11:15:00 DERRELL walters [facility] 2021-06-08 2021-06-08 Outpatient R HILARY MOORE [facility] [id number] Univers 09:20:00 09:20:00 HILARY MOORE ity of [facility] 2021-06-08 2021-06-08 Patient Quentin [facility] 1.2.840.114 [id number] Univers 00:00:00 00:00:00 Secure Msg Igor PRIMARY 350.1.13.10 ity of [facility] [place].2.[place] [phone] Ar dical 092 [place] 2021-06-07 2021-06-07 Emergency X [place], [facility] ERT [id number] Univers 09:13:00 10:50:00 GIGI ity of [facility] 2021-06-07 2021-06-07 [facility] 1.2.770.625 3370 4088 Univers 09:13:00 10:50:00 Gigi GILLESPIE 350.1.13.10 i ty of [place] [phone] [facility] 084 Branch 2021-06-07 2021-06-07 Emergency Ny, 1.2.840.2 [id number] Univers 09:13:00 10:50:00 Gigi 53968.1.1 ity of 3.104.2.7 [place] .3.119459 Medica l .8 [place] 2021-06-07 2021-06-07 Outpatient R QUENTIN [facility] [id number] Univers 00:00:00 00:00:00 IGOR ity o f [facility] 2021-06-07 2021-06-07 Orders Doctor MOO 1.2.840.114 [id number] Univers 00:00:00 00:00:00 Only Unassigned, QUITA 350.1.13.[address] [place] [facility] 4.2.7.2.686 Iam [id number] [facility] 009 Branch 2021-06-07 2021-06-07 Travel 1.2.840.1 1.2.773.287 2009 4109 Univers 00:00:00 00:00:00 03962.1.1 350.1.13.10 ity of 3.104.2.7 [place].3.698 [place] .3.934631 084.8 Medica l .8 [place] 2021-06-07 2021-06-07 Orders Doctor 1.2.840.5 [id number] Univers 00:00:00 00:00:00 Only Unassigned, 64868.1.1 [place]y of [place] 3.104.2.7 [place] .3.567083 Medica l .8 [place] 2021-06-03 2021-06-03 Travel 1.2.840.1 1.2.630.454 1114 4404 Univers 00:00:00 00:00:00 18088.1.1 350.1.13.10 ity of 3.104.2.7 [place].3.698 [place] .3.688600 084.8 Medica l .8 [place] 2021-05-27 2021-05-27 Outpatient R SAAVEDRA, [facility] [id number] Univers 00:00:00 00:00:00 IGOR [facility] [place] [facility] 2021-05-27 2021-05-27 Outpatient R SAAVEDRA, [facility] [id number] Univers 00:00:00 00:00:00 IGOR [facility] [place] [facility] 2021-05-25 2021-05-25 Patient Doctor MOO 1.2.840.114 [id number] Univers 00:00:00 00:00:00 Secure Msg Unassigned, QUITA 350.1.13.[address] [place] [facility] 4.2.7.2.686 Iam as [phone] [address] 2021-05-25 2021-05-25 Patient Doctor 1.2.840.3 [id number] Univers 00:00:00 00:00:00 Secure Msg Unassigned, 79827.1.1 ity of [place] 3.104.2.7 [place] .3.265299 Medica l .8 [place] 2021-05-20 2021-05-20 Telephone Jones 1.2.840.4 [id number] [id number] Univers 00:00:00 00:00:00 Best, 41249.1.1 ity of [place] 3.104.2.7 [place] .3.712082 Medica l .8 Branch 2021-05-20 2021-05-20 Telephone Jones 1.2.840.2 [id number] Univers 00:00:00 00:00:00 Best, 96676.1.1 ity of [place] 3.104.2.7 [place] .3.102498 Medica l .8 [place] 2021-05-18 2021-05-18 Travel 1.2.840.1 1.2.359.861 1783 6448 Univers 00:00:00 00:00:00 48800.1.1 350.1.13.10 ity of 3.104.2.7 4.[place]7.3.698 [place] .3.904943 084.8 Medica l .8 [place] 2021-05-18 2021-05-18 Travel 1.2.840.1 1.2.650.793 5530 6448 Univers 00:00:00 00:00:00 82039.1.1 350.1.13.10 ity of 3.104.2.7 4.[place]7.3.698 [place] .3.545138 084.8 Medica l .8 [place] 2021-05-17 2021-05-17 Logistics Operations Director Pcp-Lab [facility] 1.2.840.114 [id number] [id number] Univers 13:15:00 13:30:00 Visit Igor Saavedra PRIMARY 350.1.13.1 0 ity of [place]2.7.2.686 [place] [phone] Me dical 366 [place] 2021-05-17 2021-05-17 Logistics Operations Director Igor Saavedra 1.2.840.1 1 [id number] Univers 13:15:00 13:30:00 Visit Pcp-Lab 38848.1.1 ity of 3.104.2.7 [place] .3.528062 Medica l .8 [place] 2021-05-17 2021-05-17 Logistics Operations Director Igor Saavedra 1.2.840.1 1 [id number] Univers 13:15:00 13:30:00 Visit Pcp-Lab 99140.1.1 ity of 3.104.2.7 [place] .3.756698 Medica l .8 [place] 2021-05-17 2021-05-17 Outpatient R [facility] [id number] Univers 09:00:00 10:25:05 IGOR [facility] 2021-05-17 2021-05-17 Office Igor Saavedra 1.2.840.1 1020 [id number] Univers 09:00:00 10:25:05 Visit Deonte Joel 00730.1.1 ity of 3.104.2.7 [place] .3.083335 Medica l .8 [place] 2021-05-17 2021-05-17 Outpatient R [facility] [id number] Univers 09:00:00 10:25:05 IGOR [facility] 2021-05-17 2021-05-17 Outpatient R [facility] [id number] Univers 09:30:00 09:30:00 [facility] 2021-05-17 2021-05-17 Travel 1.2.840.1 1.2.547.000 2254 5569 Univers 00:00:00 00:00:00 54561.1.1 350.1.13.10 ity of 3.104.2.7 4.[place].7.3.698 [place] .3.072678 084.8 Medica l .8 [place] 2021-05-17 2021-05-17 Travel 1.2.840.1 1.2.225.218 7564 5569 Univers 00:00:00 00:00:00 04575.1.1 350.1.13.10 ity of 3.104.2.7 4.[place].7.3.698 [place] .3.719009 084.8 Medica l .8 [place] 2021-04-26 2021-04-26 Outpatient R [facility] [id number] Univers 09:00:00 09[facility] 2021-04-[facility] 2021-04-26 Outpatient R WENDY [facility] [id number] Univers 09:00:00 09:00:00 [facility] 2021-04-20 2021-04-20 Outpatient R KACIESUKHJINDERSARA [facility] [id number] Univers 08:45:00 08:45:00 KACIESUKHJINDERSARA [facility] 2021-04-11 2021-04-11 Outpatient SALLY FIGUEROA [facility] [id number] Univers 08:40:00 08:40:00 SALLY MITCHELL [facility] 2021-04-11 2021-04-11 Outpatient SALLY FIGUEROA [facility] [id number] Univers 08:40:00 08:40:00 SALLY MITCHELL [facility] 2021-03-21 2021-03-21 Outpatient SALLY FIGUEROA [facility] [id number] Univers 08:00:00 08:00:00 SALLY MITCHELL [facility] 2021-03-17 2021-03-17 Patient Doctor [facility] 1.2.840.114 [id number] Univers 00:00:00 00:00:00 Secure Msg Unassigned, HEALTH 350.1.13.10 [place] 4.2.7.2.686 Iam as TYLER?BLEA [phone] [address] MEDICAL OFFICE BUILDING 2021-03-17 2021-03-17 Patient Doctor 1.2.840.6 [id number] Univers 00:00:00 00:00:00 Secure Msg Unassigned, 95029.1.1 [place] of [place] 3.104.2.7 [place] .3.905578 Medica l .8 [place] 2021-03-17 2021-03-17 Patient Doctor 1.2.840.2 [id number] Univers 00:00:00 00:00:00 Secure Msg Unassigned, 84764.1.1 ity of [place] 3.104.2.7 [place] .3.838919 Medica l .8 [place] 2021-03-16 2021-03-16 Logistics Operations Director Salbador Lockwood 1.2.840.1 1020 [id number] Univers 13:15:00 13:30:00 Visit Pcp-Lab 91973.1.1 ity of 3.104.2.7 [place] .3.860498 Medica l .8 [place] 2021-03-16 2021-03-16 Logistics Operations Director Salbador Lockwood 1.2.840.1 0 [id number] Univers 13:15:00 13:30:00 Visit Pcp-Lab 65536.1.1 ity of 3.104.2.7 [place] .3.664909 Medica l .8 [place] 2021-03-16 2021-03-16 Outpatient Tonya LOCKWOOD [facility] [id number] Univers 13:15:00 13:15:00 SALBADOR [facility] 2021-03-16 2021-03-16 [facility] [id number] Univers 12:00:00 12:09:51 [facility] 2021-03-16 2021-03-16 Outpatient SUKHJINDER DELGADILLOBERLY [facility] [id number] Univers 12:00:00 12:09:51 [facility] 2021-03-16 2021-03-16 Out[facility] [id number] Univers 12:00:00 12:00:00 SARA OKEEFE [facility] 2021-03-16 2021-03-16 Travel 1.2.840.1 1.2.652.641 [id number] [id number] Univers 00:00:00 00:00:00 68128.1.1 350.1.13.10 ity of 3.104.2.7 4[place].7.3.698 [place] .3.393224 084.8 Medica l .8 [place] 2021-03-16 2021-03-16 Travel 1.2.840.1 1.2.838.010 8760 3919 Univers 00:00:00 00:00:00 85714.1.1 350.1.13.10 ity of 3.104.2.7 4.[place].7.3.698 [place] .3.197737 084.8 Medica l .8 [place] 2021-03-11 2021-03-11 Emergency [facility] [id number] Univers 09:44:00 13:06:00 HALIMA ity of [facility] 2021-03-11 2021-03-11 Emergency Geeta, 1.2.840.5 [id number] Univers 09:44:00 13:06:00 Halima Cates 25049.1.1 ity of 3.104.2.7 [place] .3.503401 Medica l .8 [place] 2021-03-11 2021-03-11 Emergency X [facility] [id number] Univers 09:44:00 13:06:00 HALIMA ity of [facility] 2021-03-11 2021-03-11 Emergency Geeta, 1.2.840.4 [id number] Univers 09:44:00 13:06:00 Halima Cates 70450.1.1 ity of 3.104.2.7 [place] .3.986809 Medica l .8 [place] 2021-03-11 2021-03-11 Emergency X [facility] [id number] Univers 09:44:00 13:06:00 HALIMA ity of [facility] 2021-03-11 2021-03-11 Emergency X [facility] [id number] Univers 09:44:00 09:44:00 HALIMA ity of [facility] 2021-03-11 2021-03-11 Travel 1.2.840.1 1.2.011.088 0537 [id number] Univers 00:00:00 00:00:00 14529.1.1 350.1.13.10 ity of 3.104.2.7 4.[place].7.3.698 [place] .3.432220 084.8 Medica l .8 [place] 2021-03-11 2021-03-11 Travel 1.2.840.1 1.2.185.951 6428 1313 Univers 00:00:00 00:00:00 25208.1.1 350.1.13.10 ity of 3.104.2.7 4.2.7.3.698 [place] .3.089189 084.8 Medica l .8 [place] 2021-03-08 2021-03-08 Logistics Operations Director Salbador Lockwood 1.2.840.1 1020 [id number] Univers 15:00:00 15:15:00 Visit Pcp-Lab 94990.1.1 ity of 3.104.2.7 [place] .3.093146 Medica l .8 [place] 2021-03-08 2021-03-08 Logistics Operations Director Salbador Lockwood 1.2.840.1 1020 [id number] Univers 15:00:00 15:15:00 Visit Pcp-Lab 95454.1.1 ity of 3.104.2.7 [place] .3.919934 Medica l .8 [place] 2021-03-08 2021-03-08 Outpatient R FABIÁN, [facility] [id number] Univers 15:00:00 15:00:00 SALBADOR ity [facility] 2021-01-31 2021-01-31 Outpatient R SELF, [facility] [id number] Univers 10:15:00 10:55:06 DERRELL [facility] 2020-12-29 2020-12-29 Outpatient R SELF, [facility] [id number] Univers 08:00:00 08:41:00 DERRELL [facility] 2020-12-29 2020-12-29 Outpatient R SELF, [facility] [id number] Univers 08:00:00 08:41:00 DERRELL [facility] 2020-12-29 2020-12-29 Travel 1.2.840.1 1.2.403.034 [id number] Univers 00:00:00 00:00:00 65076.1.1 350.1.13.10 ity of 3.104.2.7 [place]7.3.698 [place] .3.352357 084.8 Medica l .8 [place] 2020-12-29 2020-12-29 Travel 1.2.840.1 1.2.994.687 8396 [id number] Univers 00:00:00 00:00:00 38344.1.1 350.1.13.10 ity of 3.104.2.7 4.[place].7.3.698 [place] .3.593164 084.8 Medica l .8 [place] 2020-12-22 2020-12-22 Outpatient [facility], [facility] [id number] Univers 09:30:00 09:30:00 DERRELL babsy o [facility] 2020-12-22 2020-12-22 Outpatient R [facility], [facility] [id number] Univers 09:30:00 09:30:00 DERRELL dl o [facility] 2020-11-26 2020-11-26 Orders Doctor MOO 1.2.840.114 [id number] Univers 00:00:00 00:00:00 Only Unassigned, QUITA 350.1.13.[address] [place] [facility] 4.2.7.2.686 Iam as [id number] [address] 2020-11-10 2020-11-10 Outpatient R SHE, [facility] [id number] Univers 09:30:00 09:30:00 ROBERT bricey [facility] 2020-11-10 2020-11-10 Orders Doctor 1.2.840.4 [id number] Univers 00:00:00 00:00:00 Only Unassigned, 72609.1.1 [place] of [place] 3.104.2.7 [place] .3.633048 Medica l .8 [place] 2020-11-10 2020-11-10 Travel 1.2.840.1 1.2.845.351 9082 [id number] Univers 00:00:00 00:00:00 92380.1.1 350.1.13.10 ity of 3.104.2.7 4[place].7.3.698 [place] .3.784640 084.8 Medica l .8 [place] 2020-10-11 2020-10-11 Outpatient R SELF, [facility] [id number] Univers 08:00:00 08:00:00 DERRELL bricey o f [facility] 2020-10-11 2020-10-11 Travel 1.2.840.1 1.2.710.436 0113 [id number] Univers 00:00:00 00:00:00 45489.1.1 350.1.13.10 ity of 3.104.2.7 [place].7.3.698 [place] .3.708500 084.8 Medica l .8 [place] 2020-09-13 2020-09-13 Outpatient R SELF, [facility] [id number] Univers 08:00:00 08:00:00 DERRELL wesley o f [facility] 2020-09-13 2020-09-13 Travel 1.2.840.1 1.2.995.422 5023 0698 Univers 00:00:00 00:00:00 78547.1.1 350.1.13.10 ity of 3.104.2.7 4.[place].7.3.698 [place] .3.115119 084.8 Medica l .8 [place] 2020-09-02 2020-09-02 Emergency Rose, 1.2.840.5 [id number] Univers 16:12:00 20:21:00 Patti 89500.1.1 ity of 3.104.2.7 [place] .3.585926 Medica l .8 [place] 2020-09-02 2020-09-02 Emergency Rose, [facility] 1.2.840.114 [id number] 16:12:00 20:21:00 Patti [place] 350.1.13.10 [place] 4.2.7.2.686 [place] [id number] 084 2020-09-02 2020-09-02 Travel 1.2.840.1 1.2.655.732 3860 [id number] Univers 00:00:00 00:00:00 09702.1.1 350.1.13.10 ity of 3.104.2.7 4.[place]7.3.698 [place] .3.308136 084.8 Medica l .8 [place] 2020-09-02 2020-09-02 Orders Doctor 1.2.840.0 [id number] Univers 00:00:00 00:00:00 Only Unassigned, 34016.1.1 [place] 3.104.2.7 [facility].111723 Medica l .8 [place] 2020-09-02 2020-09-02 Orders Doctor MOO 1.2.840.114 [id number] 00:00:00 00:00:00 Only Unassigned, QUITA 350.1.13.[address] [place] [facility] 4.2.7.2.686 [id number] 009 2020-08-25 2020-08-25 Outpatient R [facility] [id number] Univers 09:15:00 09:15:00 [facility] 2020-08-09 2020-08-09 Outpatient R LARISSA, [facility] [id number] Univers 08:45:00 08:45:00 DERRELL [facility] [place] [facility] 2020-06-28 2020-06-28 [facility] [id number] Univers 13:45:00 13:45:00 [facility] [place] [facility] 2020-06-21 2020-06-21 Outpatient R SELF, [facility] [id number] Univers 15:15:00 15:15:00 DERRELL wesley o [facility] 2020-06-07 2020-06-07 Outpatient R SELF, [facility] [id number] Univers 08:45:00 08:45:00 DERRELL itdl o [facility] 2020-05-25 2020-05-25 Outpatient R MICHELLE, [facility] [id number] Univers 08:30:00 08:30:00 CRISTO [facility] 2020-03-15 2020-03-15 [facility] [id number] Univers 13:00:00 13:00:00 WUCarlo [facility] 2020-03-08 2020-03-08 Outpatient R SELF, [facility] [id number] Univers 13:00:00 13:00:00 DERRELL ity o [facility] 2020-02-16 2020-02-16 Outpatient R LARISSA, [facility] [id number] Univers 11:00:00 11:00:00 DERRELL martinez [facility] 2020-01-27 2020-01-27 Outpatient R SELF, [facility] [id number] Univers 11:45:00 11:45:00 DERRELL martinez [facility] 2020-01-19 2020-01-19 Outpatient R SELF, [facility] [id number] Univers 08:00:00 08:00:00 DERRELL martinez [facility] 2019-12-22 2019-12-22 Outpatient R SELF, [facility] [id number] Univers 08:45:00 08:45:00 DERRELL martinez [facility] 2019-12-05 2019-12-05 Outpatient R ALEISHA, [facility] [id number] Univers 10:45:00 10:45:00 JEWEL [facility] 2019-10-23 2019-10-23 Outpatient R SANDY, [facility] [id number] Univers 09:15:00 09:15:00 KATH [facility] 2019-10-15 2019-10-15 Outpatient R SHE, [facility] [id number] Univers 11:30:00 11:30:00 ROBERT [facility] 2019-10-01 2019-10-01 Outpatient R SHE, [facility] [id number] Univers 14:30:00 14:30:00 ROBERT [facility] 2019-09-01 2019-09-01 Outpatient R LARISSA, [facility] [id number] Univers 08:45:00 08:45:00 DERRELL martinez [facility] 2019-08-06 2019-08-06 Outpatient R SHALOM, [facility] [id number] Univers 13:00:00 13:00:00 ANGELA [facility] Results Test Description Test Time Test Comments Results Result Comments Source SURGICAL PATHOLOGY EXAM 2022-11-17 19:23:05 Test Item Value Reference Range Interpretation Comme nts Case Report (test code = 1419515458) Surgical Pathology ?Case: [id number] ? Authorizing Provider: ?Dominic Keita MD ? [...] HPylori ? Final Diagnosis (test code = [id number]s [id number]) dTBsQQwyhrXyWYlahVogZHR2WKCyCO2vrObatFd1 aIldQWLsioB5bOLyMNmap0xbMZE0c9iuwzxfZAOc QLgfNd3uiUSxrSmwVsRjXLGmZYf2qZ44AKVnxU8w pLVoJMz8ATZexRNkwcQqZwKdUSYqiUQfpIU9DRRj XU4sqcjuGDxfSAatLXZdjvG5IBEoeEMuT1DdBACj SP2klmxxAKM3LMisYRUqLQZ2TuIlQMWwm1Gnptv4 BmLwmSOlMLotyAUglddrhfSiLSPlzxPOChWHGE9H AKBBZOVUU7cKCZTUWX8NJDTUZhyeiNEaTJBzKTTd KTCNHW5FPQUbL4kJYbExNQ8VIGUtLTDdyGLyIFBv qxOMSmUYUK8RQF8TKJvfSfcBJXAFHqnoFBNjACGl ZNKjPSbFB3DLBJSgFGJBC2QVMDfANEapRn5hPCVP MJ9GV2qVD0NZXZNTIW9ITGceIYRnYAGoIAIuCR9P IYsySWMYBS7VSQEVWCYWKLjWKYQVQAUPXWsAJKPU H6SPOAhZECRlfpqlRTXiJn3aF3VLBXURILecYcgJ EKZYHwomCUCtSMPcLZXxMMLHU2UDRfCKEH5HC54O ZEGHYYYRXR5SMDHMFHfACD2HBEBPQDFBBYFIW3Vu pAOqKGGkNMJqESWLNuSTBrfTXQ2DYTTTJpXLHHoT TDHvCQeVSZFPBQlcQQShPNNrQOSzDI3CELuaNVFC BL0RCARSSwhYErqNJBRsOQVNJcYIQqjSYMZGMRGB JO3CTv5PUOWLOdqvOYBfmEMjyDwzmeWnNTxce9Zq U2XbHhByPLjplwTxFRWcCbtqdqhtASGxYEF0hfMu FPQjWWzvJWIhYHoxIt9sjQPwyMfzKoZpTICpb4of noJFEByqOcDjE318SPUzMEzon4fqb9XuMLHwwJCk c6R4ULJRzjkatQq8e9zwZdIiYjO8sOGdURjaS7ay esFulYZrB6KrfPZqcWw2vPszY86rb0X5IjpdI6cr OPAfBQOcJ4MnJG5fNUWjJtf3UIP4RUO2ESVjYRBr B1DpPZ8kBNYmgVXvJGt0p8ollBegMRXdMSP6h8je UNargdA5ZN2pea5lxWy9u9nwscJaYXAgHEJhoVKC AYPgE7QqhGwzHp7elXs3aHjdRskeCJX8Ain3EA4c nr54wic2yDmvCWUgvavqShC7KJyjQRUwfrftKVf5 WAfbQJNlrVW1HVIiiZCkD8FhPLOhIZ6xnsu4FCZ1 ILkdKOTzEgR2ZWIvkIWgFOUpbHcpFQoxc983LYL8 QaWwNX9qF4Cra8G0hX4igFMsLNRvzSRdWrXyRAYv dv4zaVNkPGhtb2PzCRD9saN5zXVfwGHhWDYwVK43 Vqosx3EbYefyWWJ9UNRpsrNsk2Xhv1uwReWuqhOk E2vyA9JnYLZqHELdIGZcKuBhxmEtv6Iob8ZpzRCf fDt5d0drPPEcBTTduZiyx1vsODS8JQJsL4D2cRWv q0ugJOmpMGMpnDL6sbQ5UTTebTQhO9MknO8hADVu KQ7cozn8c4jjMIW5PPrpCYDuMrQ9abB1VUPooLQy RFFvgQmdOAypv274WUS3AmUaZELzy3QkY2DvyEcx C43xpNkoQ95fXRWnrYxmtE8jxJtlmA2iIlXgNbMg NFxxbFxwbGFpblxmMVxmczIwXGxhbmcxMDMzXGhp E6tyQzEwYFLlwEjnKFxmo3LbUZZzFDOvVxsrhxGs FQTfprLOHXislxGlySKkj19pGNdnbDCiHZTcNQcx WIDjkGaub1BrZ1kvAZ2tM5JeiWKffdEnhmCvOVxk OLDgr5b5uIGnsIsam6OshFUxSD87ntUqDHXwYLU5 KPBkz2zrLB79dodtHeCeuH04giDcieWcHODea2kr S5kuzVZmd1Jat9PzhwEuWUgsz0PcDP3joJTtyzmz vYJ1OYUioBGhkyFgpqB8wPkxZNHldK6ukH4qwFkr nL1uDuQnQdVnFHyhYG1gUIMhP5sryFToJVPcXKAl S5scWdArkU9zbRbjKeltmgM7NKStoa96 Clinical Information (test code = Shivani Schuler is a 47 year ol d [id number]) female with IDA1. Gastric polyp x 6 r/o adenoma2.Duodenal Bx, r/o Celiac disease 3. Gastric Bx r/o HPylori Gross Description (test code = [id number] cGdw [id number]) [file] cmQgDQp9 Disclaimer (test code = [id number]) q0lmvACsXEMox1aeTCUsfYRmOrExOzV cZnRuYmpc jAQnPIobcbJbRPkio3ZuJ3HbGyKhAUkaacWwSTDp EdpysduyIDUhQXM3vjEmKINoBStySFWkCPwnVo2o nDUkcPaaIuItYGXtx3uvcfNIWDpaMoVfL154LUKu YSdji2xhw4FkVNDfhWKsj4R6ZCTLahfwgMs5bRab S34hx6M0FybpW7tcCESyTXIdJ2TnLZ1rLFTwYnv9 MIQ5YFK5LPZcCHWbQ9LwJA7iZZJtiUGyXTx7m0lt rCvnPYJzXFC8f9etWAzohzYeUB3sej6igEp8e6og cpSqVDAhZJJuuUROWJPeH8ExuBwkMv1qoWx3mUen LmuoVUF6Scd7LS7wmz25qbs5lJdtEYQsximcOmV8 IWgbGOYeirevSNx3FZvpPBMbxCY4WKTiyTGvS4Vu AIRnYZ9jgvh6QXO8BSugXDSgBjQ7TETseLSfCOKw qAutWVwpi176FEL5FyFuMW6lO5Ktw0R0qS1xqNCc CMFdgCTbWyGgYCYvmp1efLLgKPpye8XuQGI0buB3 fZZniBOuQDCfPB01Yfbxx2ZwSbcqe9VxT76niUU2 CKqcd1jtED9fRjP9euJuIHybm3pmaG6dPdO0LXjj BG5dVC1tOSCihX0ixuirDSHpIbNmltmnPTMkaRmm btEmXz0aiAjjQMA3WQqtX5ileG4oKbF9DVagU5um iW5aEQa9OWzzpAY7YCPngF8wFD1witqkg1qdLFdz BUsnTYBenfV4egW4QXNinITnJ9UmrB7dDUPaOK3d zfyzl3qzRWJ0OKqjJVQtGNR4SvTzDNLtf5Mzlov1 AkAvt4UcgSXsAOfrX10pb141UHVwlgSsD5qfhLNq btjduGHmiqzbCDmohjW1CEHuduCte5UsIJPfLOW5 BLihHQofcBFrLRWfmUytz7ukX0IcmYMxXEYmBRqz XGYxXGZzMjBcbGFuZzEwMzNcaGljaFxmMVxkYmNo [file] aFxmMVxjZjJcZnMyMFxwYXJccGFyXHBsYWluXGYx XGZzMjBcbGFuZzEwMzNcaGljaFxmMVxkYmNoXGYx OUjsB2veSsLkC3RnKKHnMbQgcDOqP4ckUYztLHH2 XOZzWO7yuPTnPY56wTGgq4apVZdryIhpft4dK15m sUZdOClcdCrvJRDsv25hj0CgHZOrgtWpha7hRNQq qjJ2xS8cEVQucWvaDQMbcCItAAPrp9BiCOlteOZe yyTpEVegCDLvMOYfnFZodcL8xdMrpjCbfpLyFGNj cTetMRZux4QzMNOfTEygz1Udhv0kdIZoOXTyymDC cRpplZFmyG8hM7BjZIBtSXSdcz8eRQSazS1yWQte u4IwnnkuCZUmQSAlSLFhkzQhvr4qHJAjaUKCPR8L PFxzsYRcf0SvcnVxZ4xCHFW4IUXjErHiZmrbJQPv vOPhfYGcEOJyjg34UMLucN5kmYaiSQKfsZ6duM4k lWhfeY0kFoXdSsDtDVbpXF5nCIIqF2ovgTTkKXJk PNKlO8tqRqYjaP9zuGvoMPkvRhGyPxXpIVjiXBN6 fQ== Embedded Images (test code = [id number]) [facility] [id number] 19:23:05 Test Item Value Reference Range Interpretation Comments Case Report (test code Surgical Pathology ? ? = [id number]) ?Case: [id number] ? Authorizing Provider: ?Dominic Keita MD ? ? ?Collected: ? 11/13/2022 0805 ?Ordering Location: ? ? GI Endoscopy OR Department Received: ?11/13/2022 1016 ?Pathologist: ? Billy Diaz, PhD ?Specimens: ? A) - STOMACH, Gastric polyp x6 r/o adenoma ? B) - DUODENUM, Duodenal Bx, r/o Celiac disease and reasons for anemia ? C) - STOMACH, Gastric Bx r/o HPylori ? Final Diagnosis (test r3fifVTaAWIdu4kfQNEcpX code = [id number]) FuZzEwMzNcZnRuYmpcdWMx VTtxnhXhWQfgcRodNYX6KI MsGY4jyXpoaLr8bKymKPDv ljW2pHRkJXrbr4qiAJK7e5 otygxmROVxOFqqJq7cmDJt bMfjWcTvLCMzEBn5iX70CZ UnxM9cpKLzAPp6NCIalDFg ieNhWfSmNPXxnVZpzSZ1GE DxOG6kquesUDphDSozLHVy umQ8ZHHpeKLlF0RdCTObTO 4arrhnNRR2JGasGOWiHGQ0 OsAhOOGkz3Edmof6NkWoyO FyZFxwbGFpblxmczIwXHBh agFNDfUUVN1GKRXJSMTJF9 cJSDOOQQ3ALYKTQjxolPOc TLCmZFUsUEMFUH3RENAlM7 cYWfQhRL3DPVQpBETwaMNr LOTmxoEWFnPCHR0RSJ8NSS wgQklPUFNZOlxwYXIgICAg YYVfIRnBH0LVEWZaVWMOU4 YFOXrDMNywLe1yJJPTCC8C R6iXU8WPSSJBAY8ASTcpCY AuVRHoAQIsOO3RGQzpMYXF BG3PJRHIQMWTLLtVPRFMOV GXFMmSSYYNA8MCYGaEAKAv nzauQAEqVm3jJ8BSYCMUIH wgQklPUFNZOlxwYXIgICAg UVZoUBGOU2ITGqSDZW8HD5 2GKROAAZEYBZ4ICEKJOQfN EJ3WBFYLBYGPBLKDS3MgtO FyICAgICAgLSBOTyBFVklE WT6NYLTPQrKAGZqXNNDuXH lTRUFTRVxwYXIgICAgICAt HW9YUJtoZWIYWA5DXCQZFw dBTklTTVMgSURFTlRJRklF UUDSNVXDOX0JNi0RQZWESq xwYXJccGFyfXtccnRmMVxz e8KkL0KlCxKyBFqgbzEqZX SbHojqzinhXMFcEUP8rrYf OKNwUHavQXCmGIutEy7ycZ ScdKqjGcBmRJTwl5gubbQE IVelGyYwW544CNOiIPxvh6 kky9IyJRFdiDXik5M7JIPI mhlatOv4c7vkRvEwIuO1fM MyUOpfH2lnncCapRTfV7Rp aKYtnAp1eEvjS43fd6X6Mk chU0dqIIOdPDGwI2LmJK8p IFXpFly4BIS7KGF2BJBhSC MgG1FeID8rXLXvjSMqVVu7 h1jaeIspMFFfLSH6n8hmNE xpafK4PJ1rao4gsXx4o8qy czEgRGVmYXVsdCBQYXJhZ3 WbyDczEd4bdSz8lKubSoph PMK9Kwy7MS0pgu85hgo9cK xnPVQxzvvzQtQ8OZbqWXAb vcxiKZp0WYyzUZPnxED1ET QqsHOjQ5SsJTUjCG1cbvf5 JTQ9OWegOYRjMcH7HZTfcI OrTGTciXkwRKnrp533ECP5 IlZbIT5pZ7Znz8Q4lV6xpP EqIQPyfCFaHdGtBGXmoa5q wQXlGWzbl6FnFHQ6pxB7xG FjpYNwHWOdKZ90Bqtcn6Gt WwxbAVT1GDFhhjHke4Gfb1 ypNvMolyPvP1lvJ1TjVARa RUVaSGLzEyDhjdGgw7Qtz3 TfbUDrkQn3m8tfXCKiCFRh aRemq2jaLLV6AZXuL2F8rR Qvl7ozRXpxXOMxrGO1fdM4 FHBnyKQfN4IpxJ8xDIJuIO 3dqcg9v9ebGER2OQpzNZJy UdP1fuI9GMIemGSpTLPxkY qfPXivl258RVJ6GgTqWJKe v2KdC6FxyAagB34btKvuV6 9wHKJzaPkmsT2oiQbdmI9e ZjBcZnMyNFxxbFxwbGFpbl xmMVxmczIwXGxhbmcxMDMz NVwkP5aeOnXnYIJtnIiaBN bjs7OoCAXeQWGhFjyebtGr XHBhciBJIGhhdmUgcGVyc2 9uYWxseSByZXZpZXdlZCBh sYtbe4YiG3uqRH3tB1XpcB JvvuFyhzLaBPpoINXmn4b5 yGLiiMuuc1RymPHzBM20vr GkXYVuYFQ8ASEst0bwQD10 vdhhExWhsK49nkJcmxIoWI Qal9rwF1gpxZZgw3Ckf3Zg xeSdTZqny6FrGG2iwEOszv lefLH5GUPbkWLzqdGqmkN4 yJmnKQTmqH6cvK4kiAjdyJ 6hOlFsLqLfTWtnPQ1kLMCy I8oxjEVxBOTdPJMzJ9mkPz VzvS4vdKvwYnxkuiH0STBf cn19 Clinical Information Shivani Schuler is a (test code = 47 year old female [id number]) with IDA1. Gastric polyp x 6 r/o adenoma2.Duodenal Bx, r/o Celiac disease 3. Gastric Bx r/o HPylori Gross Description (test l0piaQEqIXHvvGYRQFD3HM code = [id number]) UuFZ5lvBmzaUx2vLwgCQGf aeG2vOAlGJlhs5enTYW2k6 icgfGIKtjhUJGtDW5fXLug NIMqQL9eRxXrXKSiXsIzIH BhcGVydzEyMjQwXHBhcGVy mCK7ONEgWS7dfpugVUxrEI ndHSXzupQ6IMJqdBAkV6Zp OJEkWM8jqbfqZXY3HHRYRs yjKy8jgDGwqQkrCgCvIiFx YXJzZXQwXGZuaWwgQXJpYW k2vV0ZMtkrBBT0WOZJWyzj AeskkYpjp0QsvODcJBBhVY xcaWQgNTEwMDAgXFxkYiBP PgVuFwP1Zwx0DNP8EmO9DI k4UFTWGTOeKltxTLA3PsX6 AGu3XMMmNK7mIReomOMlKH peVrthBVfoY822MRlmVCLj E0GbT0IpXNehFkVfSSemOA RjFCPoNIqtLDLwP5KBZWYp PVE8YcRsAOYsCNq9AJcdJ7 HXHJCoJDRdZuI4TXFlQtW3 YLp6QVDTRl9lCFkxYxEzIL a7PER6WEg4PcDrYAXaUfAh BOFvLIStIFtqgPQeOS1ipT sxXSLkQY0ZAQOoQVyoPUNa GnItN7TZP8eGCR6xIQdsfR JjaFxmczIyXHBhciANClxw QRIuQH7ZGGQqNQwiXCn4cj SiIRFjJcIrAREqE04ty6FX a4NlOI9UMFp1fbObzucufQ 7nYEChvwVbTCcBhUWzqN5l niVEVZpzVEXwL1DmvwStKE sfDGHjeb5jjXmsUHixTfQx bGVkIHdpdGggdGhlIHBhdG xrzzXdM7R9jlNnTA5rLXWB PKKfrM8mCHThYZYyp2XlqC OizWuvN2JcjPOwNtYke2g2 gYW3NUZznsQsHIZgvUWvKL Bvek1sJMjqAfVdF6L8JMEw SKIaw11xyQW1xhPtLrSujN m4gTOcTGS6HK5zuYnvfhSt l6s2lL1xUNLae0O3TXBpk7 K4SNRneoJouGRntJDpJMBz DF0wotXdHR04IYXxOLhpUJ wwNRI0HYJ1OIKrmDBzk5lz mmzmAl3oBPjeNE3uBAjhHY 72WWOhVWlvNTBwW3HzV6W0 ILakDALeOYRxeGTkkD9iow JgiaUqwPf0SUKeAVI4cHNi hFutRBOdQnnrwUS8BXKyDg JjqdSak1NhzAi7iDZiEUkp VGIqwM4iaI5rBUAwXDUxrh YUEmzsGKPxSGalx5TuXOov cGljWHNhMzAgDQpcZXBpY0 2vn7PLv4Nex2dgoFgaa4Om cNKiLW5ovZAbVP9Zb7dpDN JhsJWrOYP7EDlle4tdTBnf UIE7HWHfEfEkIAIfPD1BEk PgENbdRPw2YHmoCGk1CKn8 EA8MDqNnRUUvWkm8WjS2Sw KuLGb2NCbzAX9GJDW8AMNa FAJiFPckGQB8CHKoUZz5WS IgXFxzcyAzIFxcZmwgXFxu M92ceYLwOLsuAdRmZAmccB poJZCiCEH3XZ7OMJWqLvBv A9RYC0lGAV2wMxgkmrAgBP AmkoVWYwpdSPNePS5QOYEf ZEisUUu4dvCbPJRhPmBcPW SyJ57az6GKo7WoAQ6VYNd7 xnWkxelfiZ7hPXSvewJxa1 IzMFxlcGljWHNiMzAgDQpT mHQxfX4drySOEDzmQXKmP9 EpptAfJBxoQOAkyy4moUzc IGxhYmVsbGVkIHdpdGggdG idRCMblYmprqSlX3P9ksWc GV3wMTOVWRDrlR3ySCPlAS DuQVMtJOBcdM0aRNJ9j9Yo doLdBFXIYBTfkYucOE17rR BjZWxpYWMgZGlzZWFzZSBh qkWxthNak61hajDsw4XjOM 0ypInmYGmUSTbpCeMtUF4n EUFstaPyi0OqQQ8rWGWgmO UsNHXnlvziuKBqRIl7mWHh QBQmVfWxpOkwp7OpPBAjND bvCW60gtXqXO5fPKksYT2c CNzvGK4gEMHmXJEbOJWgTo QvpDOgOwZhmGUqUlLjE32h LzHTfRNuz3DjI7jaMJ4qbQ QvSspitTTuVAZquOrym2If rIJvWHOxu2YodKPxLQeySS 6cWWJ4Ii7lhWUhCNNmbtF0 q4SbSAsnDVMsFzdvSFUfME wof4SuXMDldGEKq7DbPR8R XHBhciANClxzYTMwXGVwaW BEr8DrTJKYTpxbsXmuMbPk uSXkPeF5OCHzbTQhBWM9VZ 3ydQlpHBOyALa5TRgbFZSp H8PsH5RdZZvwWcRoIWqqML IlWDKbSAmaPHGaU8IOFMVn ASX9BiTgEJQkZUm4YAoaR6 LGOCMzAJPlZzA8NMM8SjF2 GDc7UBRYSl8lPGimZaCbYB HuJiZ7FGo5XiJxINTbHqAb BLWoLTEuXHlxnHIjDE3nsV peWFLrNHZsOBI3SIAjgTUH m5OtHCMsLBapUrYxJUCLAJ IMOL9TWhRIAJBuTaDhePVm UQ1UUMBzczHsHYjktShmmG 3mlSDvW6iwFnBeYedpeNwh TmVzdERvYzEgDQpcbHRycG FyXGxpbjBccmluMFxzYjMw GAQjoLWGn3DiJPZYSqPfXC NpbWVuIEMgaXMgcmVjZWl2 PZAlxL3oOn2faRVaaP4daO QtHZhzSJKdy9d8wOD0uWLj rQG7zCEnyJvvFtFjQA5vgZ VfKUSZDT24xIYhyyZjJORw fQ4wUNCuCBNsWHD5rjztBY BGHIJ3zJEzr9P5JZiyQQK5 jJ7dlWgcUiDsU4A4AZMnGG Rxh09fcSZ5mgBrQxPeROCo op7oiQ3tDWfnbxPybZmfrj Qpq2E8UXMbn0A6BWQotsMj fYTosMDiFAOgPvD5ZHVsHv T8IILdVILyzAMcVJCgKS8g VGhlIHNwZWNpbWVuIGlzIG XwzRPkqqLkEEFdly54K8xg SCQmzV6il0kgPnXvOCAdBA QyrIOlqGQ2WMQjvG8kxL78 maEwmgYCTX9lyVOeDQ2ZGY NiMFxlcGljWHNiMCANClxw SPGkSSdfs6HyCScgmHdoEI UjNtZdYDvVxYrjZIYJA9fg hAIxFJqwCSOINTrIG0AKFJ 1UVNRzmUXFQFC5CZ2pUXci FXNqZ7FdA7KublJ6t7bpeK drh2XujSRcNZ3bdVTyZR6N XHBhcmQgDQp9 Disclaimer (test code = b3vdeGLoOROcd5suTMZojR [id number]) FuZzEwMzNcZnRuYmpcdWMx QAoxtiLvOGrvs4GwX3NmMe AwMFxhbnNpXGRlZmxhbmcx SJDcBSO9plVyYAWjAByqKH KtATdjCk3eiMGmoSopNwNl BRWwz3ysdwVMZMurEqMyN4 27VQZpPOcis9hke6EuWTQc rKXnc6U0MZPJmbtpbSo6iM nqV37jo8B9ZfjcE8taXMSm FFLfP4EbYU3aPGYyLfo4TE I9NPZ8IXOuBFNaR3SlKX2n XWJzuRNbHVi2h1pbrMfkQQ GjPKJ8x5qrQSmeflVdIW2n cw3voQa6b7wafoGgTRDjVI BlzJMAJLAbT4GshIcsNn7e hDf8jNrqFaahZAW6Biw8ON 5xew07osk4aErrIIAhsulb VgU6ABhjEOIwgviaCJe2NI nbMZUptPH8XDAsfEHjR4Rc GLDvJP4jqoj9CMN9PBsqIV RzEtE7TCHnyIArFUJmxEgl RTopp008FXJ9KvWtJE5oL9 Vqm2N1wD9hxYHwYGObbYFf NuKuZGNnyp2hgBHgUTyqx5 JrYCM2luQ6qYXflIGxBWUu KR67Zhtgi0OlUseeb2MjP2 8cqSE3ZCzvp4ejIO7eMcF7 ahVgXXife3awpA7dHdT5LA mlVT0kNI7aNTNwrM5gaqjy XHBnYnJkcmhlYWRccGdicm IbVw5nfLaiKCN4CUauZ2pw dP6uKcJ8DDuwW9usgS0gCA t0VSmroQD3CYWvsR8qTN3p wuurx6zpULbqQVqpYMHpbv W8chT8QYJuzEDtQ6RrmM6z TKDsUO1gahgjx7jwBFV9CP zjUQJkGEK7JrXvILUzj4Pd dpy8TxBwk6RsiMCnXWxyD0 9vf449LHVfwcOeJ0zhpRPj gqhjkPCrmaktSEltjyR3NM OkxnUxx0EfVSEvQRV6SZhb RTaejRFcKYDwzNbob2pnK3 RscGFyXHBsYWluXGYxXGZz MjBcbGFuZzEwMzNcaGljaF kvBKklFhBdBRAnGRboO7ae OtRkA0CxJSVwHmSifYFqU0 ggVGhpcyByZXBvcnQgbWF5 TIgxE8y2QGPugdQsqGs5uw BkLzYzUKZrSNZ7LMpacZZg XOArx0RtgasmyVBcVq2ecR IoHQCpsM8hBCRrVNUeXDaq AB4nuVm4YWBKiQOupUCePr BJKQDqXV51peAqPPSEqbjl s8A1GSayTJKkm1TqmNUrQ3 qwq4HdCWEms73fIC2dk3P1 z3qsAYE3ZD1ev2TzYVLnsW VqdKUcKQXms4Jgguqkn8Ax QRMwxdWqu6UnRSKclaXxrP OnRTVsjvTccz8uywXbIGHu JGBwH2XnwfoitKuuotSbLB Rtcy0vujWlJLM4LKJUYEKc QBZaa4EpyN0fnIYFVYX6cK Ptuu2vqtYBhXKtPCTxad74 RKDzAJ3wM2eeDUIeYGMoau AfmASim6PoFPPccZL7dUBh LN2OSyVIs67oKKDlIFRLnw WpOCKapQqshBD5prG4oX4t IChGREEpLlx+IFRoZSBGRE PuOQ4xvwTem5AwshMbjInv SWCtlCBac2DsjZCjo6YirX rju9AvvLTnhLEyNQ1kKSSe clxwYXIgVVRNQiBMYWJvcm P4d7QxBVJfVXUwYGV8zTzx ysh7MPPvzM5tLVZrF8uosy kbIRknSXSgb7KhpQ5hpYCS tUEnb3TxjDTsiFOEzLPfST 6czpGiYIfNJUnFQRQ8ovJh HVGnk0FqPFypL8rzW27woZ oykPq6iSV8HRT7tQ2cBak+ IFxwYXJccGFyIEFwcHJvcH XoENIatMiiwcIaX3BjvmCg dB6hdRRevbKtIX9yCY4yU0 E4gPUqPYSxgcCcp1qmGDeo dmUgYmVlbiByZXZpZXdlZC Lae4NsAEdiAYG0OXqvumVj bmNsdWRpbmcgSCZFLCBTcG NfiJGhLPS9JMimmoJlxiSf HF3ucY6pqJdxdD1ouWJoiW N6kuquJNNpLQQijYqaGUTo DW0gxZxijB9mPzOaRyIaNT leMV1cCENdE4xpvWXsJWCx IGKiC9eiNdBugD5ncUtbIW xjZjJcZnMyMFxwYXJccGFy XHBsYWluXGYxXGZzMjBcbG FuZzEwMzNcaGljaFxmMVxk JjAzTQVkROjbH0ddReAcF4 EeMDYfSwCyoGMyX1tfYOqn YLB4MPMfZM3haZCjAN89iU Boe3pqBZnnnGwkaf9mY79n mXJvVXkvjFbtOCSrg15so5 NlLZWxzwZoeq4bOLXkzaB9 aM3hHIBkrPekKLEyxIYwUO Kee5EwRAjzsBNtkwIdEVrn HWBfRFXcyVViuvA7wiBawx WhcwZlKREndQcgACHel3Hg VOUvCPvhw1Prtt3crBRnBA PwjgXPnAzwyEJogV2sN8Fx IKAqXKKtbl9mYHLvqV7eJD abn3WpjxdoTAEzVFYvLCUl xmKqrl3pELYznROCAB5DTG vzmXWfj5SlvfByN7pBLWZ5 NUQwNjYwMjgxKSBleGNlcH WzYJAcdh56MXHplO2abRsi GYTzvZ4ehJ2yhGobwN3kSk CtEmDoFZspRX9rENLzL5mr eQBfAFOnLIDqN0mxNvBzbF 9jaFxmMVxjZjJcZnMyMFxw YXJ9fQ== Embedded Images (test code = [id number]) [facility] [id number] 19:23:05 Test Item Value Reference Range Interpretation Comments Case Report (test code Surgical Pathology ? ? = [id number]) ?Case: [id number] ? Authorizing Provider: ?Dominic Keita MD ? [...] Bx r/o HPylori ? Final Diagnosis (test x2yxyLBlMYBnv8naWIFjeT code = [id number]) FuZzEwMzNcZnRuYmpcdWMx CSbpfxJkOTvmmTiqOGX2ZN XqLS5lqRvrzRj8aYtePTQe fzQ9mJRcMRuyx2rfBHJ7g3 nlkwetWLArLWfuIs1hrBBt bVoxGtOpLDBjUXl6gJ19XM AfrP7auNFpWFt8LASshOIs miZoEmJvOXStlNQrmXM6JG HpYQ9dalsjUEdcRNvpWEHx xqP8FYSbyWSgD9RrGUHxBF 6bczdkNDZ5FTirEJVvCXA8 MhGnUPRtt0Xzjdf9HxYnhD FyZFxwbGFpblxmczIwXHBh beFBXzWZWZ4PGASAFSALL0 mTTIZDLU4LRJONFqeiySTo BUKuTSRxGDAKSX4NWQZhL5 eRQuWwRK6NJBGcPACixPLs GZXtbpSSWhEGKU0KMK9JCB wgQklPUFNZOlxwYXIgICAg USMlKAzND2HRDJTyCVLQT6 WEOMcWKYdsJd2gUBOGCZ4O F2fMB4BOKNDWNC9BXLnqYA ZnHGSwGJJgOU9HWKtyRJSD GY1ZQYOEODPIIMhQZOCXKV PQIHgVTPCBL6WSGMtMDFOp tffkAFMgYn1cX0QFPSZJEE wgQklPUFNZOlxwYXIgICAg PCEnOVFQI9BHXeWJHL9TZ4 9BREOESWPSIO8STMSVYXjA ZO6HMVJHBAPJPVUYR1AroH FyICAgICAgLSBOTyBFVklE BS1VRMTITxOCCWrIRWKoDN lTRUFTRVxwYXIgICAgICAt EO3YNUrgGGJLLU2CHUFDKa dBTklTTVMgSURFTlRJRklF SGPDXBUGGH5FOm4FWLXJSs xwYXJccGFyfXtccnRmMVxz j6RlQ8TbEoZdNMnugmWbAU IcXpwaotdlSXYlCAM8xuUz LJZcMArhVCYnUQhsEm2qnN TgxMqhKvRvBELev1pnreVJ BFxhIiTnW227YEYnUAogg4 xbo4VnYZEzoHMgt6S4VFMN ieampPw1n8fqAtJdAgK6eU OrUYqwY8udwlMyhAHkG1Qw oJQrrUa0jFpeZ06jp6C3Re uxX4dgGXLiAVJvU9TtIO1s AMKsZdf0PHM2IML0LCGlUI AvT8MwEJ1hZPQxyIUxAVw0 k5txwZwdBBGrGGV7s7kfQP essxO1MJ2ypd2xaHv7y1mo czEgRGVmYXVsdCBQYXJhZ3 XmlVcqRa8xoVu9yPkaMpoa DDU0Yfb5FC3zon33inx6mX tbHAUzvqmnRdV9ZQppSMJa pdbxJZt5XNonWROitAX3KU NeaWVkN1WwCKIsAF4fxhr3 HBX5NKcdAJRzYsR9MMZdeI ZyKFYmrGpcIYska102KAK0 IoVmNR4tR8Jjj2R2oK9eqG EqNGPhfSPzAeQuIPUlwc2j iXKeRZvoe6PlSFK5puE3vT LsaZVsNMAbOC18Hwkrt8Dj PhlwBUO7CMFbpaEsm8Ica3 yfMpMsorPhJ3xnJ4OtDRTn FKOeJXOqKdRhylRld1Vsa6 EmeQChpRs9t3upRHJcQRZm hHdmx2uvVGH5HHGxI4P7oR Tyx5mrYByeETUgoGZ1mpB9 BYTpxBCuQ8GtuC0nRZEiVN 5cuwb9t4qdEHN5FMdjWEVs ZlF3ijS4GNWnhXBjHTIowQ zkWQenv750ESB5QmUyQRZt e8RnU7WaiYhhE26ggNoaM7 5tBVYfzVbbxE4czYdlbD6q ZjBcZnMyNFxxbFxwbGFpbl xmMVxmczIwXGxhbmcxMDMz GYryT3lrMkArBAUrrMrhQV acy1YjEYVcEZIiNwgxmeQf XHBhciBJIGhhdmUgcGVyc2 9uYWxseSByZXZpZXdlZCBh eVqgk4XwD0ntKL2oA8JjzI FynxRvnwQrDYrcKXQac3p6 hDYsnJsmb8SucXUuCL63uy JzWTItBJR8PMUfa2kdVV11 cuueRuDmyJ05erAnfxQgUB Rtp0ddI1sonOUqy9Uae2Eh uuQyDVxry7RfAK6weAFvfj ffcAA8RAAnlBOwteWepmE3 sFcfIRZgoL4qtA7ewSlrgC 1zHaYsPtSyZImaOC0eTVXt L8mbqCAoJAIxKBLsR2rfCr QnjN5ztXutItzujxB2ZBDb cn19 Clinical Information Shivani Schuler is a (test code = 47 year old female [id number]) with IDA1. Gastric polyp x 6 r/o adenoma2.Duodenal Bx, r/o Celiac disease 3. Gastric Bx r/o HPylori Gross Description (test c0lujVZiIPDbrUGRDCC7QL code = [id number]) OlJC2nkFzcxHn1fRbjKDEc nwF4fKRcHKsda6urYIK8t0 nqgrYWXwwkDCRbSX3bDIml JZBbMA2lKrUtVOKjYkBfWA BhcGVydzEyMjQwXHBhcGVy iQA7WRGhEA8zaqrvJEjtBN kmOTHabfT2ZCDtnUCeR4Vh AEBsYC5ljcxmKJA9SYCHZq qbVs7ofSNnlHvuHmDxGtNd YXJzZXQwXGZuaWwgQXJpYW k6hX4TOxgsDBK7UETTSoti LnohwRdaf1EivEYqITCyMP xcaWQgNTEwMDAgXFxkYiBP NfFaWpB0Ypf6WRI7AmC1YS r8LCCENYCpXfezNGY9SfH1 LGk6HRYaVD4kJWmxeLXkUY rxFgjoFUnlQ639HIjsLVAd Y2CjY1WuTAnpGzRzEDioOO PqEKHfLQahGQUnS5THCAFt BNM0UdFpRNGnMDj3TTitY6 XGOKVvCQRnPvX8TTOnNoG6 IJg4SFSCXz8iPHpwLdZlRK q0SNQ4UCe2SuLlCEBsSdNg EZZrYZQpXUbbiOQbVW4jaG xqDVIdFJ7EPSEzDHgkPTYv RpNmH5BOX1oGHC9nELuwuU JjaFxmczIyXHBhciANClxw YHDiQC4CZAIsNUiyYUl1pi PxXEXbPmTnNYCeI94jh9OX e7UyLL7MHXp9yqTabjbhqD 9vSFIvnjPaSIvJgOQinL0s wwXHVNboVTUgN8GzofXqAW qdUJHxer0vsKrvPPjmDnYv bGVkIHdpdGggdGhlIHBhdG kfyrAaD6H7afZpRH7kEYVH WTRrdK5bRJRwGMTim7SkoQ YaqZqzI2WpuPQkEbSic6b9 uOK3FUHdilFsYMQktENiND Snqg2gAXfjAoDoE8Y1QZEj IYWrz86ovXP9ncLlKaXgxC n6yGXwQVU3QJ6ydGkdvjVw d2b2nV2aLCEnk1S1TEZrq7 H5VMMwdqRjeZBhmVDsPXRg TS1bswYiIV33KAQsTNbcCP zxORX7LYM6KSGeuQEec9qt spjxYh2jOLccKX2dVEzgER 09WKCzKKjaCGJaO6LyO6F1 EGbbCEMnKLRolICgsR0thd RiuwLgwAz2VNGcVJT5kNOh pHntSGLaYzmljCT1UYMzVv DcdwBig0AwzUw7jJXzRHyr TVOmuV7ibB5yKHWyOFGqdl TCSqqhUIZiOTpzi3NiVWcx cGljWHNhMzAgDQpcZXBpY0 3be8AIa8Lux1duqZwhv8Nn eDEtNV0nhRFtIB6Li1ktWZ SdzNFgOLV6YNjso9gaQSob THX8DVYwJiXbMJVeTY6JTr LsLAjmOUt4DXkqTFd7MMn4 JH8NYxWoRYPlZyl7TcJ4Gy OoIFk0ANuiBV6VTSQ8KGEu WNNaQTmaLPF6ABQuJZp5KZ IgXFxzcyAzIFxcZmwgXFxu M46huHMqARbdSxZiDNkvfS drMFWvDYV8UB1INRHfEiGf C7XNE5bZXO3iVybdlaPiGF WufoIQQwrbKNQfNG1RYPRd GLutHHu9xnSoYQNoMwHaZJ ZeA47he3KFx5GkXF2SECv4 qiYjmnkdeI9gEDGrexHny3 IzMFxlcGljWHNiMzAgDQpT kVQfnI6modVRQIngYBUxZ6 OnioNxHBshPDRzql5cdBmk IGxhYmVsbGVkIHdpdGggdG lpMPSheBjnvlFxI2M4dvBo MF7gOSFQDJFvtF1hGKFpHW ZhKABpPRTcmB2cGYS5u0Ex puWzHVANPVHyiOxgZK62xK BjZWxpYWMgZGlzZWFzZSBh mcWkkkHjv14emzRdv4GcFH 8osHtyIRlAOUnoZjTnSR1x IEMuttRgf4DvYB8wTDBvjT VxRZZlyjwltRQjMFx1oWIg GFSyAqAyfKqic9TmVZUkTU tiWS92xwXfNZ8cQIyfHZ6z QXrkGK3rOSLbESOhNDFnOn KtlAKyPiHpiWMrWiZrJ24b TxVKxRMgm9RmU1unRY8gxF IvZqoheLUpRHGztHekh5Id oRZkDJInj4RodPXgFIpcXO 9yPEP6By8ybAHxUJJlggA8 w1KhEKlhEXVpPenpUVJpVL brh6OzHZImcWWEd4PfWU6F XHBhciANClxzYTMwXGVwaW CFe9EaMGQJPhytmGmhLvGj uZJkDuY4BBYwwLZfDPX8RF 5oiPjcSXYlWYs8SChjSCXx G2EuK8ZpJZvtFvXnJLfwJB MxKJYrWHnfXFSeY9XVIRIo TKT0DsCrQBLeULd2AJqhM9 NZNLWrAGCsXmA7LOS6SvL2 ZXv6XWGXSm7vEQogHnXrWT PzQiY9WMd0OzRdXOPdCaJu JKDkKKSgMVijhQZxCO9snF jtMMOdZOStSFI8TYYwmUGU p9QxZKDyMVogRcEbJKUJQB RLQS1DWkEGMCFfEfVtrBCm MN0QSHTgtzXjYVfzpBhgzI 5fwVAfR9vlDrClEibvnVsw TmVzdERvYzEgDQpcbHRycG FyXGxpbjBccmluMFxzYjMw SKIteUZCy6LiHAWQCbJpUS NpbWVuIEMgaXMgcmVjZWl2 GIJzwB0pCc9wxSPojF5cxT NyRXosLDGkq4o7jKM6tLIl nBM9fCNjgLaqLsZhOD4ypS QjURNREZ93eBIefnNeIHKm dA9aRDFmBPKdMJP8tuglTG FAUSL9kGVzk6A6JVfnDXZ9 jY7zmDsfFtOjS1G4VKPzCZ Ecx08asNE3gwEnMbMnIDKf ry7eaO1jUDupwtBuvXxzkd Nbf8P6KBXda9K9DDIirgUp wOCunOEcXZXvVvK4IJYuBb K1VXWlWNVdjJUjOUVzBV1a VGhlIHNwZWNpbWVuIGlzIG IwcBDhvvKsCJUjxx77F2dx MIWxnG5am4vqRcYsXDNhSH GljTPevZN8WMEndG6leD16 xnYfenJLQM9wfHNcXE9PFJ NiMFxlcGljWHNiMCANClxw CUAvIDbbz1MzFUllyEohGU UnMgMiXQjGbHeoYTUYT8ud gLNlBRplAAMFJAdBD1FNWV 5OOJLoyZRNUWH5UR9bQUgy BZEgT1KsI6UdbkX9g7zmlL xcp5MtsSPaOI2orJMlFV7S XHBhcmQgDQp9 Disclaimer (test code = a1wkpGCuDGVoz0ctYMXbuS [id number]) FuZzEwMzNcZnRuYmpcdWMx AGcvlbQxSHmjb0FlR3QdUw AwMFxhbnNpXGRlZmxhbmcx IUDhHCA0kvCtHFLaOOtlAK LcCKjmWq1hdINzaKteLhDo NGXry1jfooTXBCppCiAjX5 33NRSnLRjtd9fiv8UqNSPb iVKlt6W5DZSVwmlzvZz8xD aeL90zx9M8WpcnO8aiKWIa NNVsW9EyYL8sQIJiDrr9RH F6YRM8OYRoDSNwI9VfXX8i RACgvQFzMBz7n9nslYssXI PdDEH9x1mbBJwaruCcUM7j ul6blJm0k9dnvdZcOJLxZI KpsZWXRFZrZ7RybQfwAu3k yRz7pOrbUuwcLHH6Btm9VC 3dll84pue8qWguYNNzwjwl GlY5VEllLZPvkpygYHt9KO gqXJNdfWO4TGOjhJQdM4Uu ACEzMA9xurw1ABA9MAjuGQ WaHnF7NDHjyPKgYBNkrQpv HRwws394NOZ6BhQqMH1yO7 Nzt7A7aL5qcHWmVQIkiGJp AgIhTIArkf4ooAYcBFyzj1 DgBPU6erL8zVXlyHCoHOGm FS53Ywpyo9SuMobve4DqI0 2kyCC5BHtgi5clTG0kKjN0 cuXiWBtsa6ibuU9oKoT2NT xtND2zIW7nZFDieL6ppfys XHBnYnJkcmhlYWRccGdicm SyZm3isQafFRH5TAbpD7oy eU9tSdY1ITdjO6qxrD2gYF z0QIgjdCK0OQWobP5pIG6k mcbbz0gyNNesTImmPONyjo Z4gtD5CVVpyDHhC4IxbS9f NSEfKK9ydyvje7jdNDJ3YA maOXPnBCC1XwZkNGVzg1Kf ajk0EaWfh4BdjRYzBLdyX6 0ct654ADAufsWrT4ojtOSd lwaknEZqhkvhSQywxhW9OA CpjkXtr2ZoPBMdMCH9IFec JMoyoRUyNJAmvJkpr5inR4 RscGFyXHBsYWluXGYxXGZz MjBcbGFuZzEwMzNcaGljaF ekKGnlJkSjWPHbROrrI5ml HzYkW9KmDIXsYmUsgNXhQ6 ggVGhpcyByZXBvcnQgbWF5 TXvxJ8l5ATKnqjCwiEg2kk TvEjAdKRBvDVW4RXgigBKf OHBrp7DburvwmMEtRo7zmN TzRQXxoO6fMOTmIMLcCKlb SB1ddWy7DRFJlUAjxQPwGn VADOYiBO84bdEwXSWQiimi r6M6XEebOODfj0SosAWpG4 ltk5VyPTFqi00hXR9xv1B3 s8qkFNH0TD3kq3HdUQHzzR OyxADkRUGtb7Jwockrn3Bj LFHnfbNdh5XxRSPupvOlbG KmMHBabcKxck2lffVsCUDt ACKiP8EtdfpjhGjtvaYuLW Tnec6ffjPpYYD3DLWFQJGb HSSeu1WyvE7qbOISAOE1sW Xlpw6xvuNMcQOiVJKlcu55 SBRpOE6tK4opIYKkBDBxvf ZnnEKzg9XnEUYsuOP3kWXm CB9JCdKWe06lSWWyWPWTto VbFGSogYcbkGH3yhJ3yJ2x IChGREEpLlx+IFRoZSBGRE TtZH9nzzPma1EojeZgxKzb BSQxuMVie2ClzZTid3ZllL bbf1UevINrdYMpMP7lHREv clxwYXIgVVRNQiBMYWJvcm J2x8ScATIrIUSnKBG9gPnt hmg3ITWudC3jMCZkY8hfxv bcDPhgCFXlc3CocR7izHTM eJMco7ZtyPTawJTKkRSuKF 4zehIzGGaQTZvJDTY7etKn IMSeo9ZhWIvaK2bfY48pxB sylXx9uZV8LMN1xG1qSvz+ IFxwYXJccGFyIEFwcHJvcH HyZAMmnOngmzDjI7VhziMd tH6ebAVhzbRzMV5zTJ4tY6 N5aCPsPGCytdFgf4gtILsn dmUgYmVlbiByZXZpZXdlZC Yfr7NxDVmjJCY1EBmkdcIb bmNsdWRpbmcgSCZFLCBTcG ZjvIOfBMB2DBwcyzZwouLb IZ8htM6iqOnzfU5epXDfdI H9xxtxTRSrLHNiuCtuLRGh DF7mvTvkrA5oFyZhTtMgAK qaMZ5fYALeW5tnmHYuYHVu GEBnK0nzMsMtfW6ujObxID xjZjJcZnMyMFxwYXJccGFy XHBsYWluXGYxXGZzMjBcbG FuZzEwMzNcaGljaFxmMVxk DeAwLDEoAKagQ6ipFfXzH7 AySRYbQsTvmGFxW4vgNFea JIL9ONAoOA6vdGHoNO60tM Jgv9hzLShkwOklpa3wQ07k cEWeOQxntGceTMRmf77dd0 VjLDVonoZdmf1nFINcshM9 sB6uBTZfcXinMQBrtJZvTQ Xxq1EeMAozqOEbjnWuCVcz WSDlZCBibNZolxV0wxVhkz HgcsWlEOLllOosTIEyt2Yf CVDhEPcol7Qssl5wgZZfML EkicCWyFycoORcmI3tF0Hx KEOsIMDtya9tQTMfxB6uDV poe1CcwbdkHMAmHXQfPZMv xrIqjx6bPJYpdXEEMA1KYL pidPXfh1SxtbBvA9cDJON2 NUQwNjYwMjgxKSBleGNlcH CkOEZvkp96HMEnpB4ujOqc GXKvhT9lsM9qnKctpN7xRm RyQvFaNUrsPL9kAEPiB7ma zXUsAVTgFAQnB7ohAuIsmJ 9jaFxmMVxjZjJcZnMyMFxw YXJ9fQ== Embedded Images (test code = [id number]) [facility] [id number] 19:23:05 Test Item Value Reference Range Interpretation Comments Case Report (test code Surgical Pathology ? ? = [id number]) ?Case: [id number] ? Authorizing Provider: ?Dominic Keita MD ? [...] Bx r/o HPylori ? Final Diagnosis (test n9uhaFWpBOJhu8ucFIUcgY code = [id number]) FuZzEwMzNcZnRuYmpcdWMx MFmxepNrZOhltFkqZKS0WJ RwDE9eaYdftHt4vYadVYKe xzA3pIQnAAczr1byQXO3h5 zsqjclLZCnINskWk4uoQHz mMrhJbUiOMFnMYz5aO70LY LokZ2ujSZcEIn8GQEtlAZp uiGmUfMgMSXvnPSimIL4AE AhYX6wzxeuZVnyNLgrIJYk zoO6KMSpaLWcM9GbWTJvLY 8kaluwVLM5BGkoLPBfKII5 VaFvLQCer8Sumny7OdMpqV FyZFxwbGFpblxmczIwXHBh fvGCVgALUR5ZFKGHPIWTR2 tPXMLKIW5GQTBAJvkjpGAp RYRiEGLdHCAHAH2ZUUMbQ6 uRRiTaZR3NPOXoRCRxvRSl ZLHefbDFMgBJGX8YSL3NGZ wgQklPUFNZOlxwYXIgICAg JRMaZUiWE3KKISPiEWYVR5 HIASsMZDqjKl3lSFJNGD0W X7eKP4PJAOQMCV3VKHonJR JyIVFjSXCgJJ8MIZrkUWRB RL0KWUDKOGYHBSsQFDGOVS BGPUaCOKJFC6CKTXiGWDXw iuwtVWCqLy4lN7LESSTJCH wgQklPUFNZOlxwYXIgICAg LRXrTVGTY0MDHdENDV9CP1 3LLJGAYJTLVH5ZNJPDBPyB NG3CBWCZCNXMPCKGY5GhiS FyICAgICAgLSBOTyBFVklE UF1IHXGLZkKIFTcGTDHzCF lTRUFTRVxwYXIgICAgICAt DN0VWFnkACKFTF9OOUMLQb dBTklTTVMgSURFTlRJRklF DCEXISLEBT2FUo0HHBCXTt xwYXJccGFyfXtccnRmMVxz a6MiJ3OhXsIiFIkasoBlHY ZlDejkoubrNHVoLJP0kqKf IGLcOWksFPVtCFlmVa9roY PhxVqrPzCuNHOcs3rqhjHP UPzxNjKvP221YNSqBCbll1 tvd3MrRFHpvQDjo6U4LNZT plfocRx5g2bnGuEdDdS2eK PzZYaiY3mmknOviOTvF4Rl rXKvoGl0jVzcP49qe3S5Sb amC2dcIRXrXURhC7BqJD7z MLJxNro0SOX8XFI8PZBlDB CtW3HuQB3dNZTgsJRaURg5 r9bxqQdeWFBbAXA3h0mbXW filiA0QB4dqu2hwHi0j7qd czEgRGVmYXVsdCBQYXJhZ3 WqlQslJh9hpFo7bSjxHcwt XUG0Tpm1EM5may10kwo0dD rcEWLsmzcbVvI3FDonDPIc fkcgLGa4FQnxPYIdbOU1OF XkfIUzQ6NeNDJyMO3dewu6 FFW6BUaoBMKaWqH6OAWlzT IgSRSqkYtuLKxks077WXV2 UbLtSI9qF9Oku3V2fW7jqY VeDKQleQJyNzEvUXBtrp3m yLAoGQzrk7WlBUW4axD7lR HxeWJuNKPaUU45Qwnjg0Ia RtdgNSV4IUYvntAxh1Eyz4 cxTcMijpCdB6pfN9PvKJGs IUJzNRRaHeFalfVuz6Mxk2 TbbMGceSv0u0odOLAiPZBc fHbno0arDGQ0UHZcT2K3uP Ndg1vuTNkiMXNtpYA9klN3 ZPTrbSFsN2AsnE5bZFIoNJ 5zqyr9f7ghSAD5PHavXXOb IsM7roR3HGYrgAEvWULlcE zkSWjei027PVK7UbKsVVQi x4MfO9QccAewD19clUbxA7 6cOPMvoZznuE4dwHyhvV4n ZjBcZnMyNFxxbFxwbGFpbl xmMVxmczIwXGxhbmcxMDMz CFjbC9tuWyZeAPByyYqwJW kko6WyELScQEZfPxljmkJa XHBhciBJIGhhdmUgcGVyc2 9uYWxseSByZXZpZXdlZCBh lWhod1UuJ5xaYQ7nS0MtpP PwabEffyThSOlnKSVwu8t4 rTLwhVphm3FtzSMsFO66et MhTNJyZNO7QAKbh9shYT24 cphbBbYbhC80qiEoeuViNL Kqq8blN5ygtFNtn0Etx3Nf llRfQMmri5NeQH7doQBgjb fgiBZ6GTBhuTPrpvHedvE0 wSsfRQCswS0dvT6xjFqdiO 0tMjBkVjViFBlgHV0fCALo T8kgmRWlTGQuVDCzH8tkBu ZuhC7akJkoAmrpxoW3XMWs cn19 Clinical Information Shivani Schuler is a (test code = 47 year old female [id number]) with IDA1. Gastric polyp x 6 r/o adenoma2.Duodenal Bx, r/o Celiac disease 3. Gastric Bx r/o HPylori Gross Description (test b5yguLEqMDHtqUDEGUP5YW code = [id number]) ArST3rrEfmsXl3yXxiBFBf llD9jUUwCYstt5zdFZT0q9 rmnqUFRidyXMOuHO4sCYqb FBWdCL7oWoBgVKVeJfEhFL BhcGVydzEyMjQwXHBhcGVy lSQ1PPOqFC1cvcbhMMckHN nwPQIfayK7YVNfjDMnR5Vi RJBvHY1duqwsYSS7GRACUi dyNc0ybTPgcSziDpHoKvCm YXJzZXQwXGZuaWwgQXJpYW g8yY8MYytrTTV3CPECXsng OlvpvCvat4QvuXMgRMWnRR xcaWQgNTEwMDAgXFxkYiBP TcEyAzJ0Sfh7ONZ6ZoF7HP b7YVOFIUTtMwkiFMR3LhF4 QTz4YWLgQQ0nNHrjkFUkMQ wtUpkbQTvoO365ZYqnGMQu Z8KwJ4BwSXotWsMpUKedOJ CaAJFxXNdfIVPcQ5UUKNWm UAM9BwSlIZPjIOw0DZrlG9 HVCUYiXSAqWuB6PKZtWrL6 FHs3DPPWCx5pGBfdHkTjXQ j9SHJ5LVr0MvWyGNJkElRr SREkLKMxURcsjLRnAX1juQ chHKRsAF1BLRDdOMxyJVFh XxJgJ5YQQ5tAPX2bMXyxpS JjaFxmczIyXHBhciANClxw GIVfWD1YWRWbJNaqTEa5jt KxCGLwYhTwZEDfP36ak3MS q2GzRR6AXLq3jgBztrgruU 7jLJYzamKwYRuNhXCltP4x vqZIQEkzVSOuJ5VucmLtBU yzICXmtm8ooWnrZWxqAeVt bGVkIHdpdGggdGhlIHBhdG ehxmDtK5B6feMrFH1dMJUX XQSvbD2yTBJwFYCdp3SvoR OplNjlA4QagVHqZeLvt0y1 oGD9KEGjuxWhNEUlkVNeEQ Pqcd6vATapNzKsQ2B8LCAe JEPat26sxCI8uaAuQoProH a9iSKqCUR1GN5jsHogonHq x9s9rT8wRSZmv7N4PVIjr0 N8KYWvovIorTNtiOAsVQZf GV1zebUkCL96VEIzYTliGH yfNDF6ZFW2ABAqxBYtx6vu voboQw1oSBpxNB7sNBbePY 37BSYqRWfnQCPnO3IaU9F2 ZLhcDIEeXNPnrSIshT4ctp PocbZjgRy1BOSxFVF6uIMu iWfdBKUnHjroxUQ1AUImAj PfgpMja2WkzYz4uTOfLVqm EFYntJ4owM6tNGXsWXXuke WSQnyoNFLyVStqp8FnGWua cGljWHNhMzAgDQpcZXBpY0 3kb7SYc0Skn0ffbJlzz6Kd vQXwTP5hqSVtWH1Tt0vdEJ DugMKqPKE6CSbtg0bjENlj VMV5ICYoDePcNPKnMN3WAc GmFIwrUXr0FMppRUo4NKm4 XY3YZiSnNVOrGrc2WyT5Wz WzIIz3ZBcuXU8FJCU7ZECl OVShDYkbDMC0VWJsAMx5GM IgXFxzcyAzIFxcZmwgXFxu G27qyUHbKIanNdRdUGnnzT bcNSRiCTR4OE3PDEUkLeRi Z1RCS3uYIS6vLofeseNiML KgfkVWEqrjOTPpTY2DBCCy FIunSZt5csNlYNUeXgIbVT IkY00or2PCh8KkKE8VUYp3 bvFqrjaggQ8jHVDdlxNhf2 IzMFxlcGljWHNiMzAgDQpT uJAggE9vlnDAASyfEPKaF0 IcmjElNTmvTNDezs5zoKyd IGxhYmVsbGVkIHdpdGggdG jlOFAvjGcbjqCeG2T9hpMz ND3pBDKRBWDlwF5eLOMbYJ VlNWCpMSHlqK5qLQM2g7Tr goGzCERHXUYogLqhAJ13mN BjZWxpYWMgZGlzZWFzZSBh vbJfjbKki40latApy8ZuSF 3keAftPDfAFFyeWjJtME2r XYRpzjPto8XiUO1kTOKpnX FlBSDpzeuszCQhJDx3rGXe MDLsJzQibFrzf5YpFFDmMR nxEB32knSvPI9aAMxwSJ9c FRqjHG6vQXPuOGJlDYTeHz XpzINtAfZegTWjQiByS24e EdDYeLVhb7QiY9ciBH0coJ XwPklybIQcFJNiuQxzv9Yl jTWxNTYyw2UwsEXwAVqfXZ 7uDJW0Vs3nrNOsACSqnzS1 r6FaLPpjACRyIhmyPWHkHK hcy3PkXRNocJQWp4DjSK7H XHBhciANClxzYTMwXGVwaW NNd9NrBEABRszafRluMkNv wSCtPmW9VICotULlENP7RR 5utSbrTBUxUFl2YBvkRPQz K5ReG5JxSZeaFzAcOSauVZ QyJCWaFRplWOAbS2IONMOp TVK0SoRxVWTwCOy9ZOpwE3 KVWGUiZWVeCvN0UUA2JnK5 MAy3MSSXKz9mOParKqUsDU LaTaL0RWk4StChAHBaGwSy EDJfOSLzCZqlbUCcVR8ktW qbXGIrJSDvIUU7EPWseJWR c7RdZILsZMggEyFlELNCEE ELXG4DSyWIOXLvVnKukOJj BC9PQNHqweFwWQhuhXzjyS 1reFZsB8grRnYrRxiveYav TmVzdERvYzEgDQpcbHRycG FyXGxpbjBccmluMFxzYjMw DBLckUNGo5XsBDCQUxNdOS NpbWVuIEMgaXMgcmVjZWl2 KTRcuE7rLr1yeURkoU3oaC EuIZfbBWWol8j8jWM3rVGp vWR0dJOsgIcyAyPcCI5lbV XoEHVCZS67wMDyxyGdEYOx wJ3zWYZyRZJxOIX0xxpcRR GUYNZ5uPWvk4K9SGhxOSX6 zI7gsCzlXhEuE6M6DWMoIG Rmq21uaCF4ceYzZiRpZROu le6hbA0eWVwyraMqhKygja Gnz8O2MTWkl5O1UMXpveZh bCTmzLGhRVHmBjJ7UYZqXo G1GMNnAIJhdPAzDMWaTW1d VGhlIHNwZWNpbWVuIGlzIG TwgPLvfoPgYKWcuh03Y7mv PKCaxI8xy9zuBeSmKOEhGK SpaQSatGT0NBTbjO5rzM46 rrJfsyPHLN0ttBHyTM8XOC NiMFxlcGljWHNiMCANClxw KYUdWOkoz7DgQUoqfDhbQB ScWpMrFSxDtOlcPVFER3oe jBPsXGwxWWYBPRrDQ3FPLX 0ODADcsLAAGAU2CJ6pZWrs GCFpY5FaX2RvxdH3p2bgyJ grr7SefIOzMK6ymLLhBM3F XHBhcmQgDQp9 Disclaimer (test code = o6igwGJdOZTrr1jcHBLveS [id number]) FuZzEwMzNcZnRuYmpcdWMx MDuberXlODabq3EcP9XjMd AwMFxhbnNpXGRlZmxhbmcx SUFkOVY5yzEePHFsBOphGW GaYInwTf2xyTEjbDfcZjTh CRLos7torsYYTUsgVdIpH1 16GEGlVTnxh6cbk4XzBGFv bSRrr5V7YYXFegjtaLu0kP iuW05ix9X4QvhaS1kjVHLd OAQiZ8WzOE4aIJWlLlr1XJ T7SOV0VSRcSVKaU8ZvOF8p TTAjmKNrRDm6p9pbiNpfMV EwRZN6g4irYOalbeRuTH4n tc0klYb4p7fwaxPjBIYyTR NgvYUCROBsF8ZjqJcvIg0z wXo4uCqtKbepHOJ6Sdd5FQ 5add58hmo1vTilCICxckho PcV5XRxgUMPkqixbDCm1OV xvORSgcUK3JYVbcMDcQ6Jm VZJdFL0itub7FFK4WSlqBX VpXlS9TKEqeGQaRFGqqAzs ZOiqi285YZE8QsCdSK3mO8 Cbf5W6vO6nzFHnYTJdbBUz DaZuQJHysz4fqBVkRCpjx6 RtWWY0rlW4hMUwrMQtLWRp SR88Ngyqr8KaHudic4TpU2 1cjQX8VQgwm5moMX0gGbP4 lwDlZRtwr6oinM4pDvG7XI qyUI5iHP6sMLTfhA4ptiwe XHBnYnJkcmhlYWRccGdicm NaOl4ouQsoTKP7VLezC7ri fH7kWtW7TAqaF0jqgA4kRM j4RNrvhIQ6TWDpjR5aTZ6c fuekx0nbFAulBUebPENega J9agR6HMUwxHOnW4DysT8d OVZrWK6egcysi7vuZUQ9HG pnXDCkFGY3KmXhWEYoy7Vz utf3XwExu1ZzgLUrPHxqN0 6mc434SKIyzkWxI7fhsBEq yczxnNHgvdthCEdlypC7DG GtbzEla1ZpQARoJOZ2PNtv RFopsZEiHJYjwEkmq3ytZ3 RscGFyXHBsYWluXGYxXGZz MjBcbGFuZzEwMzNcaGljaF qiRVpaZdCuKFZgFLhlS9at TfCsP4BfSRGqJcRexOPsJ9 ggVGhpcyByZXBvcnQgbWF5 CRhpF1k2QWVdjwXmmWi6up QrSkUzALJdNTX0RMaajXVk SOOus8YyuixnyRJnXm6epO KzITKlbP4lGCXnQSLpEGgo YV8roWq6CKGDyDSxpWHdJi ZQRWSmYS34yrGmEPGNumqx n0Q4DWxeWTMoh2SspSEaU6 bxl1LqXFCji27lSL5tn2B3 p1jlICG3MH8sa9NuAZZpgL NrnFToBKLrm3Jqbstkd1Ea KWZgcqDbr9VrRTQelqBrxN GaMUOwktHwkq8wfmTaCSFd QERyX4YlagtnoOyeqrReJG Tajy8vmoEeWNC3UDIIQGMb ZCSqf8EwpI4guTEKPAS9mS Afvb1mayUSxXQqUBTzib82 DZPdIU3zC0rrZOIcZRUpot HkbCCso8JiXAHsfLW3mQRh YJ8GPlRVt60tPAPsEOIIzq FlDLAfbPdmwBB1eoX8oG4v IChGREEpLlx+IFRoZSBGRE KrVO8chlOvl8WuayXysAfa NWKdpDRpy9RrqRPyf0QgrQ nie1ArfDHwfPLkVZ6dVSBl clxwYXIgVVRNQiBMYWJvcm W9y7EvJJWqUACaXHU6gDzg qwm2HBIngN0cAZQpW4txfc beYNnmMIUok2XmoC1aqAZQ lZAds1LpySGtuKLNhITfAX 5xmnJuCVjJUApKEFM8omHv REXhe6JqAEcxD0bcE02dmY liuRz6zKT0QQU5sG0xYpg+ IFxwYXJccGFyIEFwcHJvcH GiRNScqTxxtvVwT8OaslPp jJ0ymOVdibIvYF9xWX0cG8 B4hHTfNXQxgzUbs6plPPyu dmUgYmVlbiByZXZpZXdlZC Qav5OvIPzpSAO6FKomegDi bmNsdWRpbmcgSCZFLCBTcG FocFXbPOH8GRwawzFtbfFf VX1hgJ0umEpnhF3ufOVpeW C4qyhfTMBrHUYpeFiaSWYo JR7egAawvG9cFxOnUgCrMB uzLL9sXNYlU4frlBAtODMf KUHaO1ynQqLtfZ9dmPlgCD xjZjJcZnMyMFxwYXJccGFy XHBsYWluXGYxXGZzMjBcbG FuZzEwMzNcaGljaFxmMVxk MyDyLHPcVIvrC1luKdQmF7 AvQUIoXzBauJQiN1diHTgr FLY3TYMdXJ4uaBKoCE30yA Mtf6spJPsyvFdmzb4zM30u mQUhRBiggCciCUCzl48wt3 UfUDDfkkKnem4nAYSkmvL1 fA3oQGSmtPnuWPMtuTZhVT Zfm7QuQSmykRCqjuCnPSsd OWMcZAJuyLJcsfV7cxZrdi IwxgTdQMYrqVniBCSqg7Ws TNEgGHdlb2Ijaw7ohDOoND ZnydDJdJpxjRLgeW7rY8Hs SSOsBIVodp5tIUHehI0gIM zjf5KxcufiAQGfZBCbLYZz muZwwo2bUMYozXTZYZ7OYG oicUCvq7QitgYmV3lZBEE6 NUQwNjYwMjgxKSBleGNlcH QnHNEdod68CRLfdM1viIbr WNBoxP2hnT0gwVdlqJ1rIj BrEaJfISclGY2lODTgQ1bi hBEnJASdLHBdD5sgEjXumZ 9jaFxmMVxjZjJcZnMyMFxw YXJ9fQ== Embedded Images (test code = [id number]) [facility] [id number] 19:23:05 Test Item Value Reference Range Interpretation Comments Case Report (test code Surgical Pathology ? ? = [id number]) ?Case: [id number] ? Authorizing Provider: ?Dominic Keita MD ? [...] Bx r/o HPylori ? Final Diagnosis (test v9nogYQfHDSvx3xuOLVqnP code = [id number]) FuZzEwMzNcZnRuYmpcdWMx WClwuyFeWNowhUrxTTD9CY BhWD4hzLxdwAm7mKrnQFUl zpP7kSWrLIpei5izDMZ9u2 bfpawvEKWrHRmcWa0qiFCo fUawYzXrOYPbPZm7zZ18NG JeqX0nxWFuXXy6SKPulBCu csGlYqSnBKAbvJMntNE4JZ SfJU7zbggkQSthWKqnBIWt vsV8LTJhjDLhQ9OaIPQlLC 1ttevyEYE5MRreMJMaBNN7 GxZsGFQdu6Kddat4ZeKkeX FyZFxwbGFpblxmczIwXHBh tyTMFqIIJK6BMZCPLWTCB3 yTGXPPSQ9WHDOYVcrhnQOa IXMjLPChAOKAGO6HHIEgY1 cCRgWcOW1ZGJDaTTLjoQMc PMIbkjGJNkAWRD1JJD1RKF wgQklPUFNZOlxwYXIgICAg FQXrAWkTP3RWBFKbWCZQF9 FGALwJXShbVy4uUBBOYP3W X3qCI6FGVGLRZL8SRJzpRJ RkHUBhSMXqKE4BLOlnOZAW HO2NCDDIFMNGHLbNATFZJO WJRYwRDDYFB4YPUMsZMQPx gzdmFMYzYn8oF7TIUFFJYS wgQklPUFNZOlxwYXIgICAg MZXtHICMG9DZKdJKEU1NO0 7EHCJANYHWAL6DVULOTZmF KN1FVOFRFWBWZECYX1HymV FyICAgICAgLSBOTyBFVklE NM4REYRIDpYRYAiKFMKiTQ lTRUFTRVxwYXIgICAgICAt YI8SGGrpAFSWNH8IDODONu dBTklTTVMgSURFTlRJRklF QMSRDPWDVI4QLg1BMLALTd xwYXJccGFyfXtccnRmMVxz q0MbG7WoXoXoMCarbtKcXZ HaQpitwspaTUVsXDA4kbAa QVUuVTnfCOYwWPhfAh1pyY DohXxlLiFeMOUny5xxhpIZ WLnsNgApG011YOIyYDskg7 knm0AjPFQcjBFoq2T5GHPL rjfrrQv4i9xrOfGnIjV6uR BjCZugM4eqopOzcCWiH6Tn rUEopIj0mYmrH21ji6U1Ww bjN2tsSSAvPSXlQ2XuVN0m TTFuAtl6STT0EVR0LGTfLD ExC3IyBI3oUJDvbURwEPk2 j7baoFkgSWVsZRD3m2hlVB dhgqF0HG7rek6ggJv9b2br czEgRGVmYXVsdCBQYXJhZ3 DxpGsdSw3ajNv5zPxnArps IKP7Wmu6JA7ehi49ixg0rE qpXNRfdkkjBlE2MIltHJCr kpoqBWb5XBjzICKbhXY6ZM XnzILhY0BwLLJoMC5ihee8 LQB2UJrqIGSrHuP8MXGudU LkPCDguJuqTNolo820KOV9 NgTrPW0aT7Cxl6V3pG5yjG NjBXTqlYJsLgSlJKXidd5o gUWiUAmgp7AlKVJ6kyW4lR YfsIKcDDGaMO45Gxpnd7Cw QcecRCH5RQIlkzOyz4Afv0 meObHiywAnN9sfU4XwTELz LKLxXSVtHqQunmDjq0Htn6 RmjNDdbJt8j5udMEAcNRXg rBsgc9beBDS2SGIbO5Q4zC Eho3twNPduBGKszJZ9akY9 LGHwkBZoW2PacT4cTDUnMR 3fgvm4e1jpNGV9GDudOGZv XdE5thA5ZLXbhDPyWFYlsR ewDUrmf005JJT4HnDdSPHp i4QpU2SexIerO85ygLhpO2 2gMCZhnHdmkU3riWhxeL3b ZjBcZnMyNFxxbFxwbGFpbl xmMVxmczIwXGxhbmcxMDMz LTgeB8lxXiKdQOOfjDwxLF zjv5TmCPYvZIQaYgvrcpJs XHBhciBJIGhhdmUgcGVyc2 9uYWxseSByZXZpZXdlZCBh hEkkf8OqS1fmIX5gG1PqqT WildIkqzIuHItkJTWyd5v1 aZAroJllz0SuaLHbXU09gv EcAKWfMJX8CRImn6vdVO04 qivwJeQzqM20pfJhfuFrPX Vlc7fcJ8wgjGQos4Xap4Xk nrTwBYzoy6LkSF1lyOUwjw nkpQW7HUKjePEmfvZggfK6 dPvxPXXejO5qwW8xhLncqM 3pZiTrRpAoMEibHF7bFRDh R4xrrBFsIZEnZQCrO9ysNu HuuP9jhOfvCcpplpY8NFCv cn19 Clinical Information Shivani Schuler is a (test code = 47 year old female [id number]) with IDA1. Gastric polyp x 6 r/o adenoma2.Duodenal Bx, r/o Celiac disease 3. Gastric Bx r/o HPylori Gross Description (test b9cqaEShXVPmqNSFULO2PF code = [id number]) KsZW3hfRyoqHd5wDwoCYAg ifC9aMNoSLlhq3alVXB2n7 nijmFAQqgdPLRaTN2gXMxb RNQsLT6eBlLfFCXlPyPyCD BhcGVydzEyMjQwXHBhcGVy nDQ9JKLpDC7sehvrKMflJH ucQUHqpaX0UVCdaGJiQ8Br NUKcSC1mgkyiBNM5INPSJf anWo9dcVZkyOovBgTsAtOg YXJzZXQwXGZuaWwgQXJpYW a5sZ9VSvruYMO0XMHFVafx WvynkXdqg8VecCYfSALrGK xcaWQgNTEwMDAgXFxkYiBP IdFhMjK9Ziv5UPD3ApN3YK o7LGRAQRPmFcbdUUR3OgD2 DTh0BWUyUZ1vHHlxyAUyJL gsFsyeTJivC863BPcbXKZw X8DrS2NgGTewHzAbRFtjUC UcTBPnDYbqRPCwW5WMFVXh TWZ0XaUbOGIlKZy5KXxfH2 PLYBOrNZCoVxR0HYIuNwE0 GKj6UDUGQo4kIPvfIiVgJD f6OMP1OGg1HvSaLGWxTvPq PHWkVLFhANjxkRHaPU9iqH jiIZGtCG3QRXSlISklYLKb LzClV7RRR5pWSG4iKZkntO JjaFxmczIyXHBhciANClxw ATHbOA5HUHLdKGyxYOx5dh QaQRKiXtDpLCGzP46jd4VY a6GhYP8ZQKl3dvGxeazlkY 8kXFYfmsAjWRmWnDMxlH0c viCSXAkeMRVhW4VijxHeVD anEMWlfh7frNjkNLplFvIb bGVkIHdpdGggdGhlIHBhdG idlqHuG9V4asKuGE9uLETY VSBxyB5qNMCiHRUtt2QhcX VkkFjjZ9QynEXdHjOxl2c3 hAT1OCSvwdXsNNQdvNNzHI Uksp2aYDplUsXgU6N9BRGd ROGfj76xyID8huDvOnTisD n8eBZzQJG0NX9cvTwuucDv m0y2sI4sRDTjh3M2VYKru8 W8OBFbwrRvrSGliZNcJMCk YC3jgmUfSQ96XWZfBUdzHH guASO7NMI2HNFkbWTqw2bt eesiFx1tNErfDM4vRNotWV 23HAVsTZhiRSYdO6AuV6E9 IHoxGNCdNVKlwOVfmC7osb ZsrcErfMz9FIMlGBS4vQKg mBbqHXQfWswvsIS5ELUdFl ZrmyPzh4KrhIe0xUVrETvk HNFbnV4xiZ9ePPZiSKXgih WEGlglNFUtHZzur0BkMToi cGljWHNhMzAgDQpcZXBpY0 5fz1FZu5Whk8bziFtcp9Vt zTFaKD7vqSVgTH8Ru5hhBK AepLHnIRR6SSitt4eoMJrc GSH1KYJwZpHtWBRrMH3JZw WfSYwnRWv8WRscOPw6RWr6 EA4OPcHfNOKsPjq9JhE8My ViLKz2UHodKD0DNTX8UPDf KERuLAhxVXP6LPHlMUm8EU IgXFxzcyAzIFxcZmwgXFxu P96ytUOjONmaSxKgDCdfoQ xmMZVpXXP9ZJ3CWNRsVcCl V9YCV5lHPS8vNeheqjDnEF WugcATIwnpTROqGU4DRPSl ETkeCYh5atKnCNTsMuDtJP CbY93fz4CEx0KxUO2PLPk3 hfRhzjknzR0xZLDvclKoi9 IzMFxlcGljWHNiMzAgDQpT bMXrlV4snjCIKPepNTQyI3 XmmpYgIAdeGQKznm3zeXux IGxhYmVsbGVkIHdpdGggdG alGHQdhSefbdXjP2Z5anXn LB3cRUDXPEMaoF9oFLNoQV FhZOCtBFYdlY4zAXC0y4In llLuNLTHPBYkrVebRC43eO BjZWxpYWMgZGlzZWFzZSBh vlDdozFbp00ewvLbj9GyPZ 2asWomBJbECTedFnSiEY6e FHCzfyPgj1KhUM8mADQzuQ HaNKUsxdljsFWcYEl9jNQp HOVdDcSpnMhrp7CtICYfOU fvPN90xeTfBV9yFZvuVX3p LCztBG7bBRUvZLEiBKUjLb PifCSqErTwhVQaKhQwB33p IlVRvKZru9AyS9jhCU3wwT SqWpgrsWVeZDAayTocg0Fe bSWxHGDfe4MnyEHsGCjlLJ 6fPWC6Xg4pnLScNGQsahO4 y7AnPRumGYYwVfhcIVNpLR agz3NqMFLzkQMCf4SaBZ8C XHBhciANClxzYTMwXGVwaW OCv0BlZHTSNzipbCifSaPq xRPwCyB4TTDvjTBoDAN9KJ 1iuCcgGDUrXEy7WOotMORf P5IcU2IvABgmNvPaAKvfUS SgVTXnNTlxPTRtB3IKVQVb BDA4XdOpFINaZPy0CAimJ2 NECMSrWAOxNfO9KCG8NsN1 SVe6FXXTRt1cJQtjTqVmZG OeXgH2ZVk0SrBeLBYwVdJx YSDxFAToJKszgWSpHQ5hgJ lwKOZwWGMvAXU0NQQfyHMX b8WqIFQsHUnsZsHdVLRRDV UASS2RWjKPYMRdGaSppBIj KM3MVYTretNvSFragZtwyU 9lrGAxA2uwJuGwFlbomQpf TmVzdERvYzEgDQpcbHRycG FyXGxpbjBccmluMFxzYjMw PYWshAEXc8HkYSIFJtClXY NpbWVuIEMgaXMgcmVjZWl2 VOBboD2gJd9zwJGxgR3jpG FrQBwdIFFrq4r5pHH1cKYn aQU6oCIiuMqtZbYkSU3afI MvIPBTWZ91qHPpcoZcPMCo mD0dLPMsXEUdLGA7ukczDN SNXTF1wJFfx9O1DGsgTMI5 yT8oiYmiYgMcO6D2FPRaGM Ekd71zaJP4lxXxAyDxYQYu tk2uqQ1dPNcqhcHbjXktxs Wzi0X1AZHdu4H1MLMcozRm fCBqwQHuTCZqJkH9QIReAf N3MHRrYTJvmABaPNBqMG6p VGhlIHNwZWNpbWVuIGlzIG WnkVOjdlGpODWnvn17G0dm QTUazF2vl5goZtLwWSVkIT BavEUaxWK2MDLdwR1pvC73 gtVqilJUZI6ptCFvZG9WSY NiMFxlcGljWHNiMCANClxw QNUuNIpbf2DkBXvhhTamOS LwUsRfRDeXfVomNPADG6sb sSPqNUvhHFQOYDoFD6VQYX 0TTFKbsTFYLZD1BT7tUUlb RFXuP9BiY2IppgD7a8xpgX ewz0BwiMJfAY9huMLqYO8T XHBhcmQgDQp9 Disclaimer (test code = c1roiXHzGOJft6cdOVJugR [id number]) FuZzEwMzNcZnRuYmpcdWMx TBdkjfHbUKbsz4OrX7MgPx AwMFxhbnNpXGRlZmxhbmcx TIVzGLQ3aiInHHEtEPplHN TgKOdoGd0mcECcwMliSbFy ACEut2wxiyBJNUemPcEaC1 21LULpFDqia1nry3ZhEHQv rWEqi5T3BYEOcpwanZo2iB bzD17fi5X3AlmmY7ahQBEy UFIgO3YzVG6qYNPeLeo8UD I8QLV9UXCjCISrY5PaRJ9b AYUqhNDfICm5q2zjeWalXR XqBRQ2f6lnAXrfvhNqWI8q wu4ecGj3m0wrsjZhOGCsBA AgeXAZPQQsQ7AjuZrlZl6x iUf9jDiwWtiyEQG7Hzb9AJ 4gzj46hjs5zWuiMJErtygh QhY2DJwqPVJjysanRKh2JJ dgDOAebXE2ITIhaDTrQ1Yb NHUpJB4cwds4KBD1OVbsNB BxGcJ6EQDjvRZvWSJczXrs QBtxq360EAG0ObVxKD5tX7 Adm8G5eW4ozNWaIMYgrUNd IeMfDZOjwx1azEUaFUkvj7 JdYFQ4gtZ6jGXrpYUkJLVn WV05Nmsnq1HlQdviv1AwM6 8gwIW2UUdpe7opLB3eGtP0 ikZdPLznb5setL4eXrR5YZ ukFR6cYQ8jFEFukK8mvrdq XHBnYnJkcmhlYWRccGdicm IsMd7gmVqhABS9JAypL8he oY1uYsW5KYxcK1qnqC8xCT i9PTpgjQV8ODZsrA5jOE9u xsgpf4zaJPvrYZpuEEOsmi G9wfK8TULrxXWqR2HwuO4y SDOpOC0oeipgk5puPCA0LS pyFEPmVGC0ZoGqMXAro1Aq wwp4KzIpl9NqbQSxZWeeX6 9rr606HUCwvqQwD1crnLRq otktvREdvvkxZYlbisH1JL IzdhTft1EbCQBpYLU7WWdr TOmraISnBLNidScgu8teV9 RscGFyXHBsYWluXGYxXGZz MjBcbGFuZzEwMzNcaGljaF wwXSjlQiPnXNKqAAdzC0xn UdJiC8EoXJZoHgBspSKqW0 ggVGhpcyByZXBvcnQgbWF5 TQxxQ5l1ACMbexOifUi3nc FuSnNzJQXzVYB5PPhagAZc OOCmn4OwivlctYHwUb6vwR KfKXTisA2sEDIsXWMlNJvd GK5hkJh6COFHpYGyeXDoZe HFZJWqEW66vnMzECONiwih a6M9XXcsMRFiz2MqmSBpK1 kng0QjBYEqo38tFW5dq2W6 h8jiFYP5OR4sk1YdYZVtaC AjaSIrOABam9Wyxglna9Sb ITVmmuUkx2KfFUDaxrLtjA NxEFYmpmIuxj6osdPdCOCv UOTvY5NdviziaGisuqXqEC Domq9fiuUqXMK2PMBOLAMv ZYIej7YasX5reVHUAQR5fY Fpnp6kooBOjJGlMLDiuc26 STWwVV2dJ0urEMYsUSWxai TpkOTjz7NoWAEcyDZ1zFAg ZF4SDaZOi65hCHLoRXRZix IxCUSusHezoZB4wqS7cS1n IChGREEpLlx+IFRoZSBGRE UuHQ3mllUkj0GmesWiaBen GORkfPXbr3StkTMnm0VrmQ vji0QjzZHlwUAuKM1gTPUa clxwYXIgVVRNQiBMYWJvcm V2w6JxFVQwYORuDKD7qSdj aoa7QGHicJ6lAIUrK9clmh xsQTpbCKXyb9CsdD2gvWEV tYTll0AffHMjoOBVkRAzNI 3wvqRjHFtWSAiMXEU4rsCn PIHfa4LzZWmpJ5tyV78fhD bbaUr3wHE0GGW3uT5bSvh+ IFxwYXJccGFyIEFwcHJvcH TlSWHakFkmomLwR0CudmAc aS3mhHYkmrOuHA9aAK8hG3 X0tKNhGMGsetBty4zoXTiu dmUgYmVlbiByZXZpZXdlZC Cmt8CeFFrgSRW1PQvlikOz bmNsdWRpbmcgSCZFLCBTcG IejLFwLIZ4URffvgPaifKe YA8qlF2amFfacK8ckFGvpH J1xysxOKJdLLYjcJibRHNn JB3lcTsgvT3iPmPhKuGmVQ bnGP3uNXVvC4ahwRCfFYYn EUAtL8thIqJgwL1zoCibIS xjZjJcZnMyMFxwYXJccGFy XHBsYWluXGYxXGZzMjBcbG FuZzEwMzNcaGljaFxmMVxk JzIaFUCeIUwlJ5jhVfRnD9 UmQSRhKyYjgDPzU3xnLXnp NUS4RRGyTL1ndGPlKZ79xW Ghi6kgQLivpGizal1bO80b hGDsNIvqhPsmVBNis21wq3 IwOJOfcvAbqp1pJRGoyfO0 vI9uNMFifXziKPRjoRGmQH Xca3NvLIxqoPQhcfEcKYdv WCPuCOAocBMzwqF1knIugp EacuTgCHYfdSjaCNPsd4Py JUZpJUfjl8Qfem4mnNNyPO LjfiKSoTvpfKKmmG9nB8Uq WBPnKZTicc8hUMTpaJ9vXB lrh1WmwbljSGYtVVFmKHTo czYfog9qSVNfxAEUIP9ZGA friUAdf7ZkyiRvS3bMXVS4 NUQwNjYwMjgxKSBleGNlcH OzLDHvxz43WJLthL6arIwh NFNwfC5zuR9vqJyifH5bTc RdHiDzIFjxCB0yNFXhX6ue rYUcFBKdGKYpR6vaWfWcwO 9jaFxmMVxjZjJcZnMyMFxw YXJ9fQ== Embedded Images (test code = [id number]) [facility] [id number] 19:23:05 Test Item Value Reference Range Interpretation Comments Case Report (test code Surgical Pathology ? ? = [id number]) ?Case: [id number] ? Authorizing Provider: ?Dominic Keita MD ? [...] Bx r/o HPylori ? Final Diagnosis (test d5dzgOUkGKKdh1gsAFMthV code = [id number]) FuZzEwMzNcZnRuYmpcdWMx TEerpuGwQHjqeRzmOQF9EL DjUH5dnMtswLu6xDjgJASy biR4lNAxUVlng7kmLHA7q5 irhqfzFTZtBGtuTb8ipISq jOneHcHzICNrSRo3rU11UU NrlR6hyNZbIBy2HEJiqSKw keQtSbCbJJJcrCZahUV9HQ PlVR2tdcwjCVnaIUxrRTBs ibV4STMzmDQqX3HmJSEzVR 8xmwpnXLK9PJvsGTDqFLO3 JqPhMEOiz2Ixnuc4OfAusQ FyZFxwbGFpblxmczIwXHBh alAMKkGJZM9GPXRFQCUKC8 fSOMWJYH8PBMWQJygarSJu CTGsHHNuDXLXWL3RVPMzN8 eKPiOtLP5WHZAbZBPbhXZc DSQdsvAQDlMCSP1KEK3FNE wgQklPUFNZOlxwYXIgICAg CXVrERcOQ8HMFNEfLKXAF7 BJBVvAERibGv4tCIMXVF0F S8fXM7NQMVYRYJ4ZSZppUP DqOVTcMSPzZC4HPUdsPLVG WX4ORQOFXZYGCUsULRWYKS DAUZdFWIRGJ1VYDPsMYJOy osmlKIUkWp8rA1BNEOZPSD wgQklPUFNZOlxwYXIgICAg TTUfMEBDV9XXHqPHEK4MO8 3UWCQCDDJWPF2MAILQHDiZ CE7QBEDDEXXMCMFOP6CwfZ FyICAgICAgLSBOTyBFVklE WF0YQKPILyLUFPkBRWZeYZ lTRUFTRVxwYXIgICAgICAt KP4TSCwyKWEKNV6WYPXEOv dBTklTTVMgSURFTlRJRklF RKMDLISTUJ2SRh9OJEYCVy xwYXJccGFyfXtccnRmMVxz s7ImL1QuJjNjMWiikyXoEK TlXuilqbacHVFsKHK0dpXz QGUvCYncYQAbEVujXj2hiK RmuNnuZuJlVOKvz5wnssLS IHdtUxKzU227LZWjIKzgj3 kmv0HdHFYqmHIiw0H2QFII azsdbUc4s9zvXuBgSvH3qF LiYMdaT3cnwsGrdZBxE1Bw tOIziFq4ySzmX25st5Q1Ul alN9uyTDTiBXCaA6MfQQ7x FGSsLny8XLM1GQS9LAQlOV RpR6IxXG2gFYWzoHYgGDb5 h6mrkFoyNLQiKGM0h3xsRT zfdlA3TP3awc2dcRp2i2vc czEgRGVmYXVsdCBQYXJhZ3 InvSdhAu4kfRj5nGfaJefd XZW5Qwf7HN8mvv83czk6lM upEIAchrymLmY9JWgyRHVe wefzHEi2YThmEQEkoEX7DZ TgnXUaA5PaRBBqHB6xquy7 ESH0BEeeAYYlOoT8UQLdpW BnCQTqnHksFPekr502BWO4 HkVdBG8tO3Slc8C0vU0klK IuKMJiwVTyDeXjQLHlon6n fCYpDXlli5GxCNL0crG4bQ UonTKtKYKiFP94Hwxad6Ut SkhxKFI1OTTnhpDbp7Eqg8 dbHyExoxZzQ6taE4FdTTWr ECUoYXFoQfPgjuNlz2Qhc8 BkdJTqdXs0s7caAOMlRIFt qXtlf7zmKFD5FRZeW7W9xL Emg4raDMpjFJJufOA9kjE3 XLYutVMkZ4RwnV3bPWRdGA 0ecus6a3dvHCY4QWqbFOIq ZjO5wfT2EFJgqSTqCHItmA jaXSykc704LKU1JyUpDOBf q5GvS6WgiTvmQ00ssAxbA6 0zDSFlkKdrjU4yjEjidD8c ZjBcZnMyNFxxbFxwbGFpbl xmMVxmczIwXGxhbmcxMDMz HLasQ1yuRrCnOEZhyZmmHY vsm2HqVLVnIDGsHdnlcrXk XHBhciBJIGhhdmUgcGVyc2 9uYWxseSByZXZpZXdlZCBh nVdxs5DxP3sdJU9oQ9EvjJ OtdnYndzUpJDsjWUBaj7j7 iHBloTjup0SdoKGzYS98be IwKUUyEWU9NDZip1vbGE61 ehzzJfSxuA48prHquoPkRT Uxc8txN8aabLOup1Wni8Ww tbQuCQzob3ClZD4dvPJmxr fteLP7ZDUykBRgklWtlcW6 aPjyYFSfqR9aeG8snByerG 1zEaJjImBaTBsjQS4hSXHm M3lijTWtRRTwQSSmX8weUf JzyR2bjHqxFasnemY3RYSi cn19 Clinical Information Shivani Schuler is a (test code = 47 year old female [id number]) with IDA1. Gastric polyp x 6 r/o adenoma2.Duodenal Bx, r/o Celiac disease 3. Gastric Bx r/o HPylori Gross Description (test y7vqmOAfBUBxqVEUNEE6LI code = [id number]) EgZI5ywOkycJl0nSbwBANn uyY8tLQvMClne6enXRK5u6 nrzfVOHcysGZWiRD5yUGej VWWqKB3sIpElAWPjZqVqJZ BhcGVydzEyMjQwXHBhcGVy lNY1CXCzTC2qypprFQyfZX emERDlwiH9NAFvvLHgS1Kz VTMmTV8lwdjqXDH6IRECSz hoGa2hzJOvuUnsXoHtZaNo YXJzZXQwXGZuaWwgQXJpYW m4jD7YKrlcWCN7MRNXEcmt HpnddOyke5QpmGTaUNPqAM xcaWQgNTEwMDAgXFxkYiBP XqVcRsA9Tmf0GSP3DoF6ZE y1ZPXIYOTdIqrpFCQ2MsX9 MLv0QVYnXR2dLBchcYJcDR vdIhfwUPxkN030NIqoZIQw I1WfJ9VwUDneHgBmVYrqVP OuCBHfLEvjPJEpG7UXIIZe FZQ4ZlNnXTVqSZl4NThyJ0 FQEQFdKYJxTzO5LWKtQkC5 GFp7WVQYNp7dQBxzIqEsVC p8PGJ8KKd5CrJyHCCiOgXh ISFnXWIaVJjjiQGmYV5hrN tuUEToXQ0JBDKfYNzvTUMv QoHhH1GXF7kBRC0gHOkzfV JjaFxmczIyXHBhciANClxw UIAbIG9LQDZmVJumKNg5ds UlEPXtLrToOSHiW78uo7TS g8RaKZ2LZIs0qaTjvkwwkC 9iFOZomqOiIBoJvVZhxU6q hdWMANaySLLgJ2LbzhGgVB lpFLUtff1edOqmLPwaKhSd bGVkIHdpdGggdGhlIHBhdG jcgaZlQ1F3rqPxDU1aFUFB DTYgnE4nQSKdPKFwn2GfjA BrkEkoO6FbtEXvFsNdv6u7 gWR2GYOrnhOyYHHtoGRpTO Bsce0iKWgvKiMuL6R6MAHm UFLkv67fvSU1pnBkGxLgpJ d7dPQrFXI0HQ3jmBrbhwKw a0a1uF1nXDYlg6U1GDVeh4 O2YYIpnuOyzEIebORkQCZe ZR0xsbZsUE47ORQvWPheXL buIAV4NWV9UVVdgZGnu7yl yosjGd5wNAvbCO1mTOoeVI 90EQQhGSmgBDPxB4FxK8F4 TFdwTAGeVJLceWFadR0fdc LuahBatEj4AKPnWOD8sRAg aIvaRLSqGpeweAJ2XLFeXk BpvmJwi6IqaFc5hRFkEUur THAszF2wkB5wBDGzIVWfhj QJWprdHCJoTTtna6YvJAbj cGljWHNhMzAgDQpcZXBpY0 7xn5WFf7Udv5olcAyvi2Xw vAYrTD2hnKKxPP3Kl4tiDT GxnJMtVJU8SUdkp4ywVGwi HJA0BSUnDrFkJKCsAF4USy QqMSsfFNe9VLsfOGs1HFg4 PE2ICgPrPVQbRoh5NwU0Qz PcTOa0VSlvMG8TCWJ5GRZb GLNnGMkrELD7AROeVUy5UR IgXFxzcyAzIFxcZmwgXFxu M83bpHFhRWuuIgBaJQrrhR ldUERpBJL6UG1TTIFrOwUl I9NWX2mDFO4uCcvkymFeYV ZlguXJOrypCGFpCR9IGMUy SUanGBa2joQkCAXwZdJmLJ YsG99oj4WFb8PtIK9MTSx4 plDefpdmsU0nKAHffqNjs4 IzMFxlcGljWHNiMzAgDQpT oCCslF5dfsLPRFezLEUmQ9 SgduHxYUoaTKSonc4tzZbn IGxhYmVsbGVkIHdpdGggdG feLHJqxDeoegQaX0A3dsQq CA0fAWDYPYTbjC6oXJDaZA LgCZLoKWEpkY6mJLY0m2Ng yrVkERABXGYtnGboGZ75oT BjZWxpYWMgZGlzZWFzZSBh wsKpdlGdq41jgmAqa2HsYN 5viDvqASkUPMdjBtFdVI0a WUHpbvRvs6XjKX8cOVWwzH DnNDEuuagbiNCtZEo9wDAx MKEjRzVusMrir8MmXTIoIG puRL35xmQmHH2qOTvgJC2e DUwbRA1yKKXlGAPbGOFiOi DazXBaUhXmsXWhNwAiL21d NgKHjTIxh7CuU6aaVQ1odH OdGmwutFWpQGFyrGbpe8Xh yHJpUFSkk0AgqDJbVZppLW 2wKKO5Vy9vfXVlXUYopaE4 g7YyCFxzLCMbJcpjEJRgMR obi7TvWIKmcDNAo2LbQY8A XHBhciANClxzYTMwXGVwaW JVs7LwWEWZAcltlElnMgWm mWQaRjN2EPCleCPzBKG7NA 8tuOwqNIYsNVf4MMeqJIAm D3AzY6PkKKlyWrBtZKspLS TwDMGyAIanFMPaH9RCFNHw EZH8AqBuYXAcKOv7GDoeC2 INGIItWVUbUsF2TRC7YqM2 YXr4QXGGDh4xJXnqOyXmRZ HaBcP3RKx0VmHhRPFiEoEy ZBBeZLZqFZhjlMVkGH1ojI uyXBOiPEVmVCS7XQOpdOWH w8LiUQXcKIcnYbNfTMUXGT ONBF2ZEwRQCQAiUoVniVVv FC8OEDBuyeXlRCfccJdooC 0jxNAvL5wuMwXkJrogfDjh TmVzdERvYzEgDQpcbHRycG FyXGxpbjBccmluMFxzYjMw PQSerMAHb9ThNWHETpNkIA NpbWVuIEMgaXMgcmVjZWl2 YCAjcM2eOc8thFGywI7ekO ElWJtzYMEmd2u1ySD5dCZr vOB3yOQsoGdgIvZvKX5fmI HpKXFAAW19jGAnidJtHEVm jU4nCYGyKKVbTJY4ljpaEL YSBVI1hDAlk0K2PJbkHOW8 eZ7mxNmmZwNeY4S7CQOqRH Kdy60hpGP3oiGmJoZgAMVd ar8ehA0mXXnrqsZjcMrkwb Prk4K7EIUia0F9TYJkyxHl bBCdxVEiWLDvIqG3PWWfUx C8TSGbDJEhvDEfBBIeDA3r VGhlIHNwZWNpbWVuIGlzIG EdsBTxfdFbSJEuxa81Z9ww BIStmJ9xc5rqHmUsJDYpJH GjtHCdgVT9YBVqjE8ujU89 pfEvokOHXJ7okSXyWD8IDO NiMFxlcGljWHNiMCANClxw CPPqKKquv2GlWTekbZauKV QsSrIwSNfKrSwxQQPOW5nk fWMaFBkiPBTOLNbNX0OBVP 9ZGATzxNKOQRI6QT5qYAnu ZECbQ1HvB5HrcdW0k5plhC jpk4CbjIEmMK8zcWWoYG5W XHBhcmQgDQp9 Disclaimer (test code = w9paiBTzVHXly9ycNDQkvK [id number]) FuZzEwMzNcZnRuYmpcdWMx GAzwrkDySKcpl0RnV3HbRy AwMFxhbnNpXGRlZmxhbmcx AMGkPAL8tlYiVCUpFDkgGR MyMXpcTf5uxGDoxScxMvBr ESJpm2bgcaXWKOsbGsCrK9 12NWVbRCkcp7efx6CxQUYp zIXmc3B2HGPOzpdpaYl2rE bhA68jv2N5ElfaX4ysNHWs YBYvM2KsBY7mUDXpJjt7SB I9DSS4OOTjLMZiE3YjTZ1n DGUabFOoDBq6u2flrWieQJ ExCML7u7mnKRdeofYsKD0l br7hdYe9f0exsgXkJYSmQR OmoKECBOXqB3CwmSuhJa6q yAm0eQerRvmsQQV2Hbc4TC 6jyy49xup7gQfcPEBdoert LjJ0KEpyMOJeqabhEOi6DW tmJAXuwTV8CAPxePQtF5Fe FCKbFD2hnat7OIM8ZXdzDZ HmWmD9LUBsyVQfYFJxhRno UNssx652VDL0RkQdLF2pZ0 Xwr5K0sC3uxXVfUCBbpGLq OkUdZYHiqe5niRWvVZnio1 AmQCV1noG9pLFgcSXoPUAo HU62Kgqho2JjMavuo0GgX1 8waVL4TSefs7izLY3pPmR8 afEyIYvwe2kieT7nKiP5GA tmSC5tKL7qEQDncB5amprb XHBnYnJkcmhlYWRccGdicm AdTd8woNhkJTZ2ATptB1ka yH4yWlX3VXxrM0vykY0tPT e5OXzrxCL3JJWsnY2tIS5y vmteh7puCRcgZGuiZMWzcn A7rtM5CWIawXJzR1XpoE6r XEEsCN2gukqqy4xhVKU8LO xcZKPnQFO4CvOkQNNbw9Fm bxw7ExZhj1InjOLtTKltV0 8dr282WXQuoyRrF7forENp iblsgYFqdhdzQQwvxdJ7GG DcbkOcp3LuWELgBLK0HGkq BDkfiLAeIDUeiFxyg5dnB9 RscGFyXHBsYWluXGYxXGZz MjBcbGFuZzEwMzNcaGljaF xaIDneTbVxAIGpWRleE8gj VbRbG4QhKDDnVrYolULwC2 ggVGhpcyByZXBvcnQgbWF5 WLyyP7r8SGUxgbYnfMp8oe DaKdTdZBYgMFV8ETownZBv HAVov6ZvnxwugOXzAg7vhO ZbUNJcqI7mSLRcKJElLRwz GY1auWv0EDHVsEAjqKKiDw EFLGGhOF19vkLrSHFRbhlg x8U3RHlsMMHxg8NgmUQmX9 sbm4UjRTTak68hAX8ap9R3 t3qvEIH6LP3ae6NnATQjvF YfgXIlMRDux4Zcdidpu3Uz ACYqekDbc4LhIHGgtzPswZ LmRAMkmhIubk3fqsBvXNPz GPBvD4EzxpjvjKrdinYoVA Mjfy4ljqCfTMJ9RDLXDZBb BUDxf4WogC9utUMWBIR4fN Vlud8zjhDKgQVmMVUjdz30 DICnCP2lB7ejIJAeJLGwrf GxeVKaf6UjFOKfvPM7aXEj MO7NRmUXs93hTFBpGSWKhk IhLKJstPggoVT9caJ4wH4p IChGREEpLlx+IFRoZSBGRE HlSX7tpoFoy1IfqyMtwEbw SMUqdIJdh5ZorNXjq8IpwD bdl0QetDUxnWFyHZ9nLGSd clxwYXIgVVRNQiBMYWJvcm F5t6TbMMQwDNRiMAZ1kKbo msw7OWQjmU6wJQYpN1mtst riCIgqORIsl4MzyN5xsTAK xEOlb4JclUNmmZXIeCLyZO 7mimUqFCiAVIcKALY4eaPh FRUnp4FrJEhfX6diF62rlW nwdMa2lXD4XMU4rN7sStx+ IFxwYXJccGFyIEFwcHJvcH XsRTNwqPcntuOtT4DlebYj oN4efZTpjqRmTD6hVT5eD2 V0nUEtKWDvflNhs8geQDaa dmUgYmVlbiByZXZpZXdlZC Gto1QyPIupMMM6QQcxwzHx bmNsdWRpbmcgSCZFLCBTcG ZjyCXdJQL7BKjmcfOlcqEr GK8mhA6yxEmvdP0tuZJlfL J8qtjdVMKpYIEoeFioIDQy OD7naKhvlM2fBbDxItMbLH nvZF5kTGAvT4qefBWqZSHa PNOaI5rwCdAoiK5qkSeoQL xjZjJcZnMyMFxwYXJccGFy XHBsYWluXGYxXGZzMjBcbG FuZzEwMzNcaGljaFxmMVxk QiDnONUnVRmuB5cnToDiK0 ZhLBIgIuWdhKBmO4nfHYde ROA2SXVuWZ5unLDiNC49kX Adu8hpLKtydWuymq7eG02q jITxUAmjvUucGOAvw53nb9 PuFCAfqhJysg1sRINjdwU4 sF1eCGMmbRxuLGUwaVDhSH Vrx6MeFHqjiVUncvJsXJdr BOAlXVKgpMJrqtB4kkSlts LsosSxRZKjuCxzLDYjn0Av IXGxLFpim3Pnui7wyREuDC CxgaTIoLvhmALryQ2xD1Xx QTBbYUPepb6iKYMnkB0yPP qpu6CildzfJIGkAQVmAPYj xvMudx0tCYWthNFIZM4EIX jveVZxg9AzszLoH6sTEBJ7 NUQwNjYwMjgxKSBleGNlcH PeFLUwoq70YKVhpN3xpLdg CATcmN5bjD9qhVjnmI5uBx ZyYtCvMOqxOG0qQRHjH5ma dZIoVINdKSTaL6qsLqYlzA 9jaFxmMVxjZjJcZnMyMFxw YXJ9fQ== Embedded Images (test code = [id number]) [facility] POGG3222-78-66 19:23:05 Test Item Value Reference Range Interpretation Comments Case Report (test code Surgical Pathology ? ? = [id number]) ?Case: [id number] ? Authorizing Provider: ?Dominic Keita MD ? [...] Bx r/o HPylori ? Final Diagnosis (test c9fpxKIyGPJpo4aeYHVjhT code = [id number]) FuZzEwMzNcZnRuYmpcdWMx DOwhviUfMNfbnEnnAHX3NO KbCG5gaTvsfQq7mWejLEAt wdE4hLRhXCgqg9okDGT9n3 xdfwqwLJYaSMmnAh2oyQPr kAenHgZjOKGjXEx0nN55UH FqvL3wxELdQWo0NIEvmFXf xbKrPbByXDLphBSosFS3DU EgPJ1ijhfyBEgtPAepEZGv omG7FAFejKIqL8RsJJClMA 9qtdxeTQY5EIufXHAuBCU6 CgYmZPGqs0Ifxoc2BvVpdQ FyZFxwbGFpblxmczIwXHBh msEQPhRTSZ4GWBOUSCXJE5 sSXAJSMN8IAFHIVxyxlFMo JJZlNHOmNFCOUP4WCJKzJ0 aMKkImPN3TTZAoFANrnBNg SZSaysQEJfJPJD1UJJ1MNG wgQklPUFNZOlxwYXIgICAg KYQdLCxSX4MBSZDiPWIAD0 KEUYtZETtpZr2cASFGHF0P D6qKC3UYBISUDF6XNNuwDD IdELBxUTSrAU2IATzwWVUY AL5QMAEHNUSRXDbDVTIQRO DCHNlMXUVDB2BLQNuDDQQz khhfEVDpIw9nX4RVDHPMJR wgQklPUFNZOlxwYXIgICAg ADUjHZWJI0FXKfZBQM8PH7 7CQTVMJBQVQW2LFLGGRApQ SZ9FJQJVBNGCFTSNN8WkhH FyICAgICAgLSBOTyBFVklE KN3WIUASDeDCZCaMEPStIT lTRUFTRVxwYXIgICAgICAt PY3PRLauTBZLIW2NCNERNc dBTklTTVMgSURFTlRJRklF KCZVFSPFQK1XCc2DMDNAXo xwYXJccGFyfXtccnRmMVxz w5OmE4HvPpWfNRcvazDjWQ ZtPoudyuxeROPpECZ2gwPy LKAzJStfKTZpBOfwFn2jtX TvrCmbGrNrOEWgd5nrhaET WEdoUxExS214AMGdWPzam4 zew7CwEBMliCLdm3L1NXYS ieqxoZn2t8gzGkMiVuI6eQ CxRXipB6pvrvZreBEnK8Hr yGHgbCm1wBwyG49nt1E0Zl mrL0guHNOvIFWjR1QyZU9y XPLdIpx8HLJ4QWV8FLSzAS AbH4IfLH7hDXDgcMAuBNb1 f8snsDhoFBNzXOW8g1sgMR ugpoA4NJ2yzy6pqQr4y6oq czEgRGVmYXVsdCBQYXJhZ3 CabBqfAw7ojFc1aGswEjbx XME6Rrl8ON7jdm00fdz1jK bdCSGcvoguOmU9AMsnYELx prkoIKq3XQdjJUQktGF1PM HjpVFiZ8BrOKDbVJ8ngog6 QQW6OCppYKWlUtK3QPUfnT GfTZNxwAxdIXguu819ARP8 LxXrKD2rA2Ulv5C0tY6gjO SrRZTjcWPqImRyJWMufb6z bPKhXYbrr2VyMUY2dkA1eR YfyRGyAFKmXA19Aoafa1Li ActyZLT1UWRbuwFct7Lkp1 nrKjQfstCeR0lpR7UfKYMh EATwMUUeIzGwwqKtr8Krk1 XdqQUjhDr2y9mgJDZqYMGg bMpzx5ytGWL5ACAyL1Y2hM Sri8vlIXtcXNKkpAX6mqW1 IVBreYQrN2UprU4rKUQrSL 6domk2c1prIFN2JVfeERJc HpJ2dlY2XTNxjTPaKOZzuC hcLBjcp859VOP1NlMiCVAt p9NkE0QrtWgxA42yrHdnO7 8wBKJffHewjR4pcQonzH2u ZjBcZnMyNFxxbFxwbGFpbl xmMVxmczIwXGxhbmcxMDMz JCnvA3fnVmDvXBUdpOjsVN sff7BdJQZiJZZbZaxllhCr XHBhciBJIGhhdmUgcGVyc2 9uYWxseSByZXZpZXdlZCBh fAppi3JjL7owIR3bK0FtrQ EpkeCsjkZdAOxeAJOfj1c4 aLHmvRfml3ZiwGGqMK37sg FeOZHqJMM1VKAdd2okWB22 kgbjMeJcuV82fkJeezEmFK Evk9ceZ4orbQMrk2Ktv6Hf epPxHBokj4DcKV0qwSEnln tjwCZ3EKUekESeyzDgimU5 bPweEOGkuJ4jzW0ejBkxuD 1iEkYrDdJhHUuqOB5zVWJe Y1xhdWLiVQLrRVZfG6maSv IqeZ6efLlaIftdcfU5ZGBd cn19 Clinical Information Shivani Schuler is a (test code = 47 year old female [id number]) with IDA1. Gastric polyp x 6 r/o adenoma2.Duodenal Bx, r/o Celiac disease 3. Gastric Bx r/o HPylori Gross Description (test o9lbnWAwWNBlnAZBDKV7EW code = [id number]) MiTB5owSuwiGl8uVtuJXSu vqF8jZJiQOzxv7nyFBV6w2 sbfiKBVomaTCMlIH8dAExx IYRbAN0mNdExDNIfQyBvVV BhcGVydzEyMjQwXHBhcGVy qQU3EWHcYV3dfhiaYFnlXV hjDMXoxeZ3JZNteVSoL7Bl OZGzQI3sggzbEUX7MLPQRw wjSk0ajLJnpDdzVvEfBcNz YXJzZXQwXGZuaWwgQXJpYW u4wK1GYnfhGIF4TSEDRwzs TfuctIvjs1HwdGCfTMVmON xcaWQgNTEwMDAgXFxkYiBP QnFmQjB0Vfv7GNQ5GzW3LZ b1RNBMOBVvScigXLE7OuZ3 GWi8DCVnMC3uJWyfiUWgGP imSaggLBbcL535ZRbvTHXc C6TsW9TqTTeqFpKgGMfwZC JlIYByAAjnMVZuD7GYYADj IOK0YxTkJJCpGQu0QOljC4 PPWAHlRCFlVoX9SXQoWgV9 YSi7OUVVCn7hOGtsTwXpZK u1MCQ2SFg0UqNcHFShDpCd KLInYRFdAHfacMIuNX3shT hlLDJjJG7SHCNbTXvtVXOf RyQeX7LXQ7uBKU4tNIiajP JjaFxmczIyXHBhciANClxw DTEbSF3MOWDpEDgjIZd9nw IcXFZuQvRbQLDxW39ab4YT c8YkXK7NXGa3vsXmdpcyrF 7zNXRkzjEuQMgEbSNjhL8u cvGJAWevTMQxQ5HlduKdLZ elGCNsrk9xfMatOFgtKtYz bGVkIHdpdGggdGhlIHBhdG noixFzC7S8mkSwEF9kQMNF APSidK2fAZPkMAEge1HisF MndLatT6GhvQOcFwVyb0e9 oQT0LCHfswMyRTOdrHCjPS Yczv5gEDmkMdZwI1W9QAIe OKQnb87zkAL8bhIfPkCvuR g8aTDnIQO2HZ7pmGokhpYu x5y6fC2kPIFdc8W8XGIjf5 B9SVWqniJcaIGiyKNzHHNk WH8kygJuKT17QMIpJNnpRK cvCEY6BNI0EPZuqQAyx2pz wemnQd7lGGreCN5gDGzmUJ 30IGQhMGtgNPAwD2NhM2N8 LGbtSSVyEOXuyVYivY2zdc ZqswMvmZw7XLUbLUN7eNUi bYugXJKlGziomAJ1HZNyKi VaalKim0DcgNz8tLArUYdi WSGylG6wzO9eZMEyKLCgrd WBXnpaFTJnJQuhy4YyZWue cGljWHNhMzAgDQpcZXBpY0 8bb5UKl6Uex2ghuMabg4Dn yOByXI6akWRsBO9Ic5axZT McrWEvIXZ1IWabx2gaQUwr XHD6ENPnIwVkUKUaMH7ZWe KaTIayTCz7CSgpHNo3OBt0 NP6GRoXrDMFhDcr4AiQ8Jb ZuBSv5HJxtHU0LEUJ5EPTt ULRtMPbqEXE7FOHlLFa6IC IgXFxzcyAzIFxcZmwgXFxu T66glJXhXNcdRaOhVOfhtM hgMHXpXKG1FI9FITVxSjFe E5LGP8dRJP1fJdjpkhXjVM QefhLHLibkLDNpJD4STPFl JFltSFp2mnGvGBDnYdAkDF ZwA33ei4XPb2SvVN2DITa9 zgTqrzamlO1wUQOzzySvx6 IzMFxlcGljWHNiMzAgDQpT mWQkgE2uvqKYBOouBYElL4 IqrcCeUQmmRJJuue3ijWed IGxhYmVsbGVkIHdpdGggdG bxKBPmwLznhpFrR6P5gsIl QO9jMTSUICUofP6hHYCxJS KaVGPeGEZldY3lLSY9l5Um abTjSMMMSDFtaWimLT08mA BjZWxpYWMgZGlzZWFzZSBh vzZojkZvl37jkeZyz9BnWO 9llOsjRYtJVAerVxFgVG6e WXElbhSmh3RtRO2tVBGdcB WyJFVkkoeniNIvRAf9hCYn WUIkRcHbcMhsb9ExCPDyCF zxVS05aaPaQB0cUXgwBC8z QKkfAC3nTXRdIVFyVKMuHs VvjSTsGdRmvJUeBtNlD73l QsXYrOIkd2AjC3kcBC3ygK QrRvfghSHlTJCfsKnbc6It hSFeOOVuk3RmdWRxGZeoCM 9ePBW9Dt0gyGTdLBQevkR5 r9EgAPfkYRQaZkbqECOxBJ tcc0VdEJJpxPGSp7AzVF9A XHBhciANClxzYTMwXGVwaW HTo1CeXTBZDgjcfSotEwVy hJXnKcL9IFHjlOBoIQP9DS 8lmWdpSITeXLa1NMhkZNHp B5JfO2LfOAquZjYaWMexMN WwNLOmJPmaHDFnC6DEFVYa BMU5GdWsMBDdTXn9XYvxE2 UUKMGoGNNyAoE1DEV2XxW1 OEb3WAGLGy9gAHdsOcRhCZ LaWgC7DNx7GiYsRYWmXsKc VKWyKGIvTSxwfCGaFJ8leK ilBODcBEKaWGM2LDLzkSZO j3WaDRUgOJqrJjErCOHQGR IHIO3GBwQNGSFwSuCehYYz YS7TSRVgmfCvMIdwzCkbgA 4ppLNkH3keLnAwOnpeeXjq TmVzdERvYzEgDQpcbHRycG FyXGxpbjBccmluMFxzYjMw WLEjbCILn5MkAJVARdZmGB NpbWVuIEMgaXMgcmVjZWl2 JEPhkI8cHv3ccAPztG4imY PoHSxcDQCed8d6ySA2ySQi nIB3oHJrmTqtEiQpAL6oiW FiXNYURZ76mZGuhvSgPNUh cW1iHFHoWYNxNZH1ktzaKR AUZRZ0rJVyv1N3VHqfMLW9 rE7gdNemSwIwJ6M1TXVoBR Qrg58anGD7rnQfOtNhJMDt xc8faL2yLObpwlUdaKlsdv Avd8T6BRVih2H0DEEsifYc vZKugDKtMHTuPlL5DMMdUv E9RODyKPIgcGUlJUHsYN3e VGhlIHNwZWNpbWVuIGlzIG IweSVcsnYfGJAthc44G3ho QOHbhJ7he0xwZwIsAMSqOV OrsYFofCR2NUJndI5bxB38 ccXuqkCUWF9tqJOePB8NPH NiMFxlcGljWHNiMCANClxw UXAuTHsqg2QfZDqvpKyaRE PgEbHfKMoVjOzlMICNS8fn hGAxMXcoBUVSGGmVF6OFNQ 4ACXSeqKPGRBX9QZ1wURre WPSuR4SsY9OuabC8p8gpfH zhv5GwgAExCO8mwBXnBP7E XHBhcmQgDQp9 Disclaimer (test code = s3wtqNWuXYSfo5pjSCVoeO [id number]) FuZzEwMzNcZnRuYmpcdWMx RJskfsGlOXayg7VmI8HwPv AwMFxhbnNpXGRlZmxhbmcx AJVzCLJ1xlLoMDLnPAlaON GrCVyeAt8dkGCqwXnkTlBj YKUck3wuxnOCEWlsMjJgK0 94IJUpZSnwe9heo9EnOXYi bMSjb8J8YQTPhtzhpQb5tA qtX21uq3A6RjdoN0keQOAq DMUfC5OcGM0cSWOxHfp3GP K1DNP5TIHpDDLiZ3PhQJ0t ELDgkOPuAFg2n8fsvGcfID RqUZO1t2tmBEoswuVjFQ9z nn8wwXt1h2pwszNkMLNjPB YsdLPYCTZiD9QqgTiiTd2q mCd7kPruIvwsJUC3Aao0BG 3zkt88elx5qOiaGVUskfrs UbO7GSyoQKFhmpzxPAy4VL phXKPsyRO5XUExuGOcN3Ml RIStUZ0ahlr5FFY7UNzhTQ XxCnD0RKPxkHYmRMDevRmd KXlap038PUI5ZcKjRY8lW5 Fde1T2vL5kgNOuKZQmuLCn LrRzEMLyqw7xsEZlOIawz8 OvHTW5dvC0tXIgiTSpJVGb PB99Fduja2VzUmyxm4AgX9 3phPC1VRlad6fjXS5mQfJ9 ieSdQWukp1evjV2iBtM1UN ohBI1gZL9hABLhjM8vwsbn XHBnYnJkcmhlYWRccGdicm PiGg8wiOjcQDQ5JSisH6ow nM8uLrJ3CUblC6lowQ1zTS f2MLyxkZM7VTDfrT2tYS7r wkzlt2diEInrKKusGYZads S2ufP6ZHPhcDZgH7IlhG3n HWFvRW4xtdyiw4tnCPM2WE pvCIWxFEN5RrVyZYKjq5Ol qji0WdHsf0ByhXSiRGitA5 9ov776XOZfiaPjO0vmdQFu sagiwQVurdcoOHpzblU1YU EhhaLrm7KvZJJiFRQ8XRmr QAjubRLbMMTjtFvrg2cmH1 RscGFyXHBsYWluXGYxXGZz MjBcbGFuZzEwMzNcaGljaF elHEnoJhXnKZAtVOjbS7do YrNsL4BqNZOyUtVnbKQzP9 ggVGhpcyByZXBvcnQgbWF5 WBsdI1l3HBNuwdNhvWi3vf IjAhSsSHCjQGC2CEnxaUKc MICpj7QynzrpgTHjVy0ucL YmKYUgzX8tUHHcMDZkNGue DF9zoMk2AGRLsQQeqEMxQz BUDAZpNO07gmEsHECIupvl q3D9EFtzZDUzc3UfnBKtS3 lne5AeUILmg48vUM4gm2P0 g4jxUVY4PD5wh9YcXUCqaH CfiVVgBZYna9Mzacuin0Rl OCWnwsMvg1AbUECnlnJleB LhFWDesmTfbo2aujTjIJEc ULHtT8BlfhnwmLktyxEsBH Qzir3ehpUtTBI6OHMTVUBe JCBvt3FrqB5awAGRJSQ6sN Dwrn8aixBGcXElDMWjgf08 MUCiIC8qE3bdZZMwJDHebt UrxRLkh8BqUBTtgGL6dKMl WJ4IFhIHy01qDSFsPNOHep AzFOSooWbckBC4swM8zG5j IChGREEpLlx+IFRoZSBGRE NmJS7bhyZru8QtvnHqpIwk DGBwdYKnw7QcuSJzl7DtdQ xpk4XqvENbjDMiBO7jFBTu clxwYXIgVVRNQiBMYWJvcm U5f9IxDSCwERIlVPX6oXmp gyd1UZKjuX6oQLNqS1mzsy ujYVqfMIZmr6EweW1bmZFP wUDgx4KxlAEizYPFkAKhZM 7kpcVhLPuEGOxLKUO0shSh HLUqx7ZpCQyiM9lkY50htH qqyTi9fIB6QKB6bU7vAjr+ IFxwYXJccGFyIEFwcHJvcH WaVAAqnEunsfJeQ3DiblWb nV9qjUMhkmObDO5sPB7cQ3 U0zMBtDHVjdzNxf2jvDExr dmUgYmVlbiByZXZpZXdlZC Snb4SyMPmgSVX6MGnhafKy bmNsdWRpbmcgSCZFLCBTcG TjuADjPAN9QBgysgJqspAf WX4xwQ2yaVvwaS7ooSVqlX S8ubuuAFSkEQForWvfKOCe XK4gkYtykB8oTmTxVePnBQ pmCZ1mYNZsR7sthHRoTJRb JGIiR4uaWkOcdM5kqAvtWA xjZjJcZnMyMFxwYXJccGFy XHBsYWluXGYxXGZzMjBcbG FuZzEwMzNcaGljaFxmMVxk BxOkXSOwDZsuC1ylMiShE8 QxXFKjFdVahMIjA8cfRWlx URV2SMGhTD8kdFJlUR30vF Unt1meXHxvoXkdjs0xY34r kNHkCOtvqNghWMQmh65td3 QfPCCjcnXwgl3rZBWmknG3 jQ0iQSTrePteTPImbODnOB Mza9MjJWxcnJRsgkToAFsl FZBoJTGwkDSkrcE4sgDdss PbfjXyLRLmaJujEOCzq5Nh ZOCqIIwhs1Iinp2eeRAxGE NfavXEtQjcjHQccJ5pQ5Rb ZDSvLRZhgd8pXJXyoS7tNY evi2AuctkqJOUnUKUdXHKl vrRfwg4pOCVfjWTZXF6ZWX aoiJRcj8GilhMcV4uCLFF5 NUQwNjYwMjgxKSBleGNlcH QlCUMstd62RJNiyR2ehEee OGCdsW2foR0qwEwkdF0pQh LeLqRgGRsdVN5pWLNoY1kl jEBbQALzPIJkJ1afWaBxiG 9jaFxmMVxjZjJcZnMyMFxw YXJ9fQ== Embedded Images (test code = [id number]) [facility] [id number] 19:23:05 Test Item Value Reference Range Interpretation Comments Case Report (test code Surgical Pathology ? ? = [id number]) ?Case: [id number] ? Authorizing Provider: ?Dominic Keita MD ? [...] Bx r/o HPylori ? Final Diagnosis (test i7fdeRYrKSNvr4nwINEvmR code = [id number]) FuZzEwMzNcZnRuYmpcdWMx VSshcxMrSUuqaSafCXV6ST SwUR9poDyfnFy5pMvhWKNn lnX8tYDiQMltj4ckPMA2q8 ddalncBOQgAIbnRz7ehHYa rTdjQnBpGCDgKQh3gR22YD IkoS1ehKAlWPn2QQBskAFm nmXnDpRyCZKkzDJdcBW1SO QcQT6onishWJgkSDuwUVOx byL4WFNleUIyT7LwAHQgJK 5undnnNNK7LLdcKISxZQG8 PlDmYKLgi1Umpnt9AsVyjZ FyZFxwbGFpblxmczIwXHBh cbMCGdBRZJ5PJWOVFWBDH6 qMELLSDQ0KIKKOMuxbxDLd YIKmOTReTQWUFQ7ZEDYlH4 tFKhRmGT5JOSQtAFKclWCj FEZshaXSMlZRNL7YYV1QJE wgQklPUFNZOlxwYXIgICAg VRNaETyMM5HWELVkTEJTN2 AXSSwCYHrvFy7bAJAFQM5W P8dCC1WRHPWQVQ6FVBfbWA AqCFLyKVEwFE1LNAxxNTCP FW4NGYPCGNBKYVqCJHNYZJ IKTAjRIFHGU5BDPUtAPFWf ttlxGHIdEc8dF8QEOBLFVA wgQklPUFNZOlxwYXIgICAg ZMAcZSBZR6BCAoQUVA4NX2 1HFFHLFEDVUL4XUAOCZEyM JP0WLHDXNFEUCSRXG6CpgN FyICAgICAgLSBOTyBFVklE TV5SUGEJStTZIBfDXGXlVX lTRUFTRVxwYXIgICAgICAt XS7YUVjtIMWEVE5ZFGIIHp dBTklTTVMgSURFTlRJRklF RNHUFXJUPO3WBp8RMGPSIu xwYXJccGFyfXtccnRmMVxz b1GeU2JmYwOyMAdfvxQnPR ZgXorwmsanCYAzDHV8hyGx ASKvDErqLSGuNPoeZe4egJ TddIskQnWhMJAyv3swnhRC XMhnPzBqG279APSzICpyp9 pga4XfDNSvsEQad2A5JXRU dytpjYy9c6apQzDzEiS6gG VaNYyxZ1ucrjXsjOFxF3Ut gITisPg2gCrcD95cn9S4Vd rjD6nhYPFkMVZfE9TsNU6l AUKnQkk1HKZ6QAF3WOJiOA KhY3XiWG5kNHIugUMmZLo0 i2xslKvuVOHfTWU5z5guYL jctcP2OF3fdy9ykCg8z3vc czEgRGVmYXVsdCBQYXJhZ3 JnpFyoGq0agSm3fGsbNjfq ZNQ9Ddy7OD3pkj53vtw0eH bwJWGjvbinPgU8PKlqGPOo xwygDRa2JAkpLGQnlNY6DQ KpeTHoL4VdZPQpEN6udvr5 AYA6BUohCTZzLyR8WYJbsC JsDEYylWbfSRknd341DKG9 JtRfNQ1oR5Yzd9Z1zI6gtJ HpMEGarYOhNnWdBATdbf7m rLFnLSqxj9IpRZL9twC5bZ YhpBGhJIYlGL53Ybkdu7Ce UcikGJI2VQUjlvPop2Esz7 tnLjLameHqT8cmM0GsEEPf UNPcEHDyKmYzyiNmb1Flj3 OqiWLyvWl4y3soYTOaNEVf xZawx9blXOB7KOVdZ4Q9tZ Fye5hcNZrmAVFanWF4ejX6 BUAsvFObC5DdlN8qCLEcCS 3ejzq5o4nrKVE2NVnvWXJs BxC5huN3UGUcrCXmYKKyyZ hhPTlza921QNS1JcRgTTJe m1NwE6AgbJgwS36rmSvwC2 3pFFOnnBtzcD9ryBurkF2y ZjBcZnMyNFxxbFxwbGFpbl xmMVxmczIwXGxhbmcxMDMz DYdeF0ltUtGtCIXaqAuxFT mek5PrSHNoQIKfIhtthmTr XHBhciBJIGhhdmUgcGVyc2 9uYWxseSByZXZpZXdlZCBh oNjsg9DrM6pfNZ4eV0HbkP WlrmIbtfGkMVabHZLzj2p8 bWPufRzzc6YdwYRlSN87dh ZyOBFeEHH4QKVga4wsAU38 gwdnUvClwB84avTutlLaBA Ybd7ncY1dyqQAza6Rkc0Ri wmMsLXqwk7YfYU8ymZYiwz ykdMI9WBAsvKUhdjBrktN3 nUalOOAprH5uiT3zsMeotL 9yWlVjUmBjBImiMS7yWGZv Y6pmuCLsPWEbPBCgO3jrKy ItyA9fqCizIrikdhT3QYAt cn19 Clinical Information Shivani Schuler is a (test code = 47 year old female [id number]) with IDA1. Gastric polyp x 6 r/o adenoma2.Duodenal Bx, r/o Celiac disease 3. Gastric Bx r/o HPylori Gross Description (test j7bdcJVoOHHuvFDUAMF6RM code = [id number]) TlGT0nyOtgrOn6dYfdOQWv qkU1dOGhZEmgu5qpNWQ2a7 fbvlXVDgweBYYwTK0cNPlf SZJqXI4uQnIzRDXpPkJyNO BhcGVydzEyMjQwXHBhcGVy qBF6IXVcTP4nqqrvATbjCN mcMDTyyiE9JALcnLYhJ3Ef NRCuEV8aaxjlFNA4FQCUPr cgVo7vqPFasNbaJsAtFzYv YXJzZXQwXGZuaWwgQXJpYW l5gS2IZeisJEE8VMRZCspt CxzhmAddg0VovCXwSWShFQ xcaWQgNTEwMDAgXFxkYiBP HdOsIgU5Agc8PRW3AdW1UX q8SINSXVFuEfmpTZO7ZoN6 IXs1TKJeKZ9dIHyrvBMmQE bdXpgvEGtfY188PMpbMUCz P9SzU1DeZKldPzIyIUrzVD JbLHDrMVymYGMkJ7QTCOGd BZG6YyFnBYBfZWn1PDfjY0 DTQCNgJNHwIlO3PIGtIiY0 UNz6ZVNQUh6iQIbpCbYlSE c0NLT0IMu5KqEbPBPwRiZb NBIpBORgFEtbqRBhXI0apS ujMILiQY7LEZFgBUbaWPTs AsIgH4KJN6fNJP1kFOcieQ JjaFxmczIyXHBhciANClxw OKBsUH0QDQFiXLpwSVq2qc WtGJMuXmOsOOSjJ95ml8JE c0BlMN3GDLu7wfLrqzdxpA 1fAGRqluRfMLoXhAIknT6q jmFTVFaiAGMaF1HkxwGhDD xyXOQlvp8bmFkiAYpvUhAc bGVkIHdpdGggdGhlIHBhdG vxikCmW5L9dfXrRG5fIYCO BJZdxB4kLRCqRGGqd1AvcD UqnCrpI9EluFAzGzMwz1r1 oBP5RPGqhqTaKEWiiKHwHQ Omzj1xNGajFrCrS7I0DPAo GWFuz92coXW0hvBuWjIkeZ i8kQZbVAI0VB5eyNtpjkRh b4a8fI0bRYRsg9N9PBAjq7 F9VRSazmPlvQGwsJGeIGSw IQ2adaAkRL17UCObISuqSC ndWMN7CIH7QEPoyPGrc6mh fijjEy4uFSfmJZ2mLFtcPP 48AAOmIMhtYJGkG5IhT5H8 SZmxEANyLLBsqVDpvQ9sav DszfNbiMs0BYGjHVE0rKAn qVopNTWgZkueoIK7PJAkAn BfxhDdz2HafEr1dMUpWIqi ZTEvtP6jqP3cFJWeCGLvvu QOBgswJTAoRUstq0QmQZyz cGljWHNhMzAgDQpcZXBpY0 8dg7EVk7Uot6xabDrro3Ke rYVxSW2dhCBbAV8Qh3bsND UufGLwERW8JApov8jtNTqo FWX5YAKdTxJmMZLmAY4GPi BvUMhdDKt1PVhmYQt0UEc8 KL8CRdZzLROiPzp7CaN8Uq PlZSb6FOjySJ9YJUP6GAUx NSBnXYhlNSN0FZUwDYr1OP IgXFxzcyAzIFxcZmwgXFxu R81aaVCpDAhyDgFuETxdbR qiRJZzFTI8VG4AWGHjNkJh Z5ETB6eLFU4wXzpdheGiBQ ZefoARNaqdQZYsQR3ANSUm LNebJKt1gtEpLSFiKyZhUX QeJ23mh7HLx2MnCO2YDIk9 rzKonwrdjO5jABGmncBzn9 IzMFxlcGljWHNiMzAgDQpT mNCqkN4zgfXTJDkzRVRpJ2 OaflWzNRryZXWncf6zwMre IGxhYmVsbGVkIHdpdGggdG lgTHZzcQnagdGyS3X1zaXa ZB3gYOFHEBPzyE1lVXXlGI AbQDYsYPPfmJ0yOCX0q4Cb mtLaAXUKZDQjaFqcLH93yG BjZWxpYWMgZGlzZWFzZSBh vbIzniKpb58mfnTsx7MwUX 8xrTnqRQxWNUveTyNjUY8h HWWglyPja1EmBK5mFSCsrO FzEBWojyzovUByXOj3pFAi UYDiOwKyyYqno0HhCTIaIG drXD42neByUC6dTFyzRA0n VRngQC1fVKByTVQaTHReWu ZihZPdWuOpwVYxUdAgF55b MvWMvMAww0FeW9wvSF8ioC XnAisqvIFrCSZbfEkni4Vx hGXqVEDym0XjcGSmWJruTQ 9xWPV8Vt4obLPoFGDgcfF2 d3OpOVzvPJUcGojcYDBzSD wna2HoGPLapJDDd0ZwCP6P XHBhciANClxzYTMwXGVwaW YLv3TfECGBCvnsnVwjErRe eYPtQzK0IDKmjEHdUZC5PW 5dbXtlAUZtSOl4SGlhOBDv W4CuU3InMWpdNmXdTNsyQM RjQPMmQMwjKJCzX8XEOBYx ZPT7NqSlFYUxIJv5BPfmW4 GKCPXjSIKuHhH6AVC0VqL0 PKk0FXMNRy5mNXdcKsTcGP UhHiH9DMz5IyYgVMGiQvSg VULvKKAwUAwblPEzHS3wuN afZBGgADQcZHG3JRVubETY i5UwZFLoZSndWsDjJQOGEC PTKM8BMdIMSVNxZjJojEBo OM7KHIXyeaFoOVkgkQgqmY 8gmFHkF7zwNwImDapegZoq TmVzdERvYzEgDQpcbHRycG FyXGxpbjBccmluMFxzYjMw ILExuUDWy1KvXFTRFtMfSJ NpbWVuIEMgaXMgcmVjZWl2 RNIaiB8xKb5xpJBeuY0wyR LsEShmXVIxx8u8eQP4kBUl xKG2eQJgeVoeIwIlUF1gxA WfEGCDFH96xEIhxpVkQPWk hW4nDZRqNSZbLPE6boadAM YPYHQ1fEIfp9O5FOzxPPM4 hB4egNehJzZuE8J5CDOqOF Fgo61ozLL0waJgEtMlEWOz xr6oeW3lFHfwmvGkjDibhy Gml2S5WQZzc5P8AOWhvlEk iFPbvKIyBMMnUbW6RNTdSy J3TXKdIIXoaTVxDAVbJZ7k VGhlIHNwZWNpbWVuIGlzIG ZiwBIoylMwYQOcwu52J8ys DPOvoM0lc2lrGfYfRBDpOI TcpDRkfAR0ROQjzC5lfF54 vpTbvsLZRI3unRDcAJ2MXY NiMFxlcGljWHNiMCANClxw WGBuIXxfn4JoKPeqfYhgUN ZzOrXaOQzMrFsrOCUAR6mz gSWfFMwaMPZQZQsRK5OTHX 4SBJSmgKBMSQK5LG4pGOjl GSFuW0SpS8ZuqiK6u7mhvK tsk5UrbVMrPX4vuKJcCD2W XHBhcmQgDQp9 Disclaimer (test code = n9medIXjGYJzz4nrSEEczU [id number]) FuZzEwMzNcZnRuYmpcdWMx QQfofhZtBKqvf7HeO4HcQy AwMFxhbnNpXGRlZmxhbmcx GAQwKBV7bsAhHWUsVPdxVM EsGQqoDc8fcPLlhHrlAgBv UZHww6omhlTWVRfgXrDnZ5 48IMTyFCtyx9eft4PaGQJe jYPvm8K9GXGTjxyixJm9rD mbA56qg0M9RqwuZ2mvFCRi PQStW5PaXT3yNJEiArv3ND T9PXR8IQOcMRTkZ8AnRO6h VVCncKPmPPp7z8czkWfhLP CaJGO0q1qgOPkgahRaJF4t mz3rjCc6r9aotuBjGOIsMX DzyJPWYVHwD2HdiRkkCp4z pRd6aHtsHphjARX2Jiw9OO 1tua48voy7zImlWQKxzzbv UaA3FPzpXYRhsqklMOs7EY waNDPxcQF9MVJzzAHhT7Mt QXPbVT3zqds5EFR9MSqyQU IyCrI4YQFbcUOnQCBnwIdn OVlxr824VHA6GrCjZK3zA1 Iyw5D3vF6euNYuXFJxpSSi HhLgTFAftl5pkTSdAUdds6 WdUZB8slH7rGUydMNdMPUv CY37Beaie0IvJrtbd6FdL7 6cmLF3GXekf9miMG7fLzG8 ihMpJGrlc0mmzZ0bLmG5PV taGC1tRY3bGOPpmC9gedcd XHBnYnJkcmhlYWRccGdicm MzUd7gnFeuGFX9GMfiE6zo hF0xWtI9BJrpI8zoaB6aNE x9DNjetYY0PWWcgK3qTC3u wieea9amFRwvHAebNXEwzd Y0zlT1SRCsiJLzV9MuvY8i JUCuDG0vazpbi8tjWFU1EU xqJBIlIYF8ZzZhCJUup0Qg dxv1HfLlk2VltQHxEAfcC0 4dk825EEWgpfBoQ4lcnBGx ztqnoUOmbvwiAEhmpcX2BP LyveJps4MoKPOcJQU4KZmz DJdpaTNcSZBvvMuqc4uhX6 RscGFyXHBsYWluXGYxXGZz MjBcbGFuZzEwMzNcaGljaF fzEXocKxCeGSIpKFtoJ9ai NiKgD1IxMTWaXsYliKGrV0 ggVGhpcyByZXBvcnQgbWF5 BUygA8k2ANEumgIciAn1nz KzZlBeSTBjCKO4ANltpAKy AMQgn4VabkaagDUySk5zvU DwIXQliO1sEHApTWYoSIng MF0hhAp8ACUVoJMwcKJjVw BNTAGbPL33ijEfLCDRgkip q5O2ZDicMSVvg1BoxMEmW4 wxa5KqZKGuv48kDJ3rm1I4 k9ydQYZ8JU1cj1QzGCIceZ HqrPInFNRqk5Zigcavb4It MJYupbVco0MoPVUlqhGsqZ ShYHZjmdTqbs9cvkWnPTJd SAGzT7MfjiulnNsrpkGfYQ Ikan5sjtEwRFA4UHNDWZPu MUWwe1XfoS1rxBVZSWO4bC Zcvu1tobCPzXAoOBEjli48 DKQoGC2vG6gcZYUpCSYtla GkcMAme2NdOVIyyRU2xLPk LY2MBdZOz23iZQZdHGYCec SbZKTtdOtblCU2edO0cA1d IChGREEpLlx+IFRoZSBGRE BuBX2hrbWrl6YcveIdlAem GSDmeKLjt4HaqTLck7IzxH jcu7RavALylBBqYX8eTGNb clxwYXIgVVRNQiBMYWJvcm P4m9MoSATwOTFiYJF5sWle paz1CDBboW5sMPMiM8pxyc wpCJiaIBYpf3TcpQ1kjTFK uFOyy7JgwWKdgQKLuTYbXF 0xcqNzHObXWJiSRPK6kiFr PLHwh9YgEGmtC7dyB14tmX zqvFo1tTP5FRF0iH5yHsi+ IFxwYXJccGFyIEFwcHJvcH SkEWZrfXyfreExX4XshnQz vD6mlREqbbAhIL3zQB7uU4 N9bWSdYOWcqtGst1buRMmw dmUgYmVlbiByZXZpZXdlZC Mds7ObWPshJXX7VHbwubGo bmNsdWRpbmcgSCZFLCBTcG WjyUKcOBU7GRmtvzKceyDf ZV0ztP3poOfyuY6mcZRumJ W4polyASNoAZUsySmrWIFn MP8ohBkxrC5kDmKiRnAgBC tdXL1qPVEiE5wyvXWvBKXf WRHwC0osSrDptE4oiBbhJG xjZjJcZnMyMFxwYXJccGFy XHBsYWluXGYxXGZzMjBcbG FuZzEwMzNcaGljaFxmMVxk LnCzDGFrIDleU3ppXxOrY0 ZfVXIcMbPhjOZmZ0fwKXaq AFW8KXTwDU2vqXUmBS74tK Itl5kzPTfirYxneo5zK33b kELiEUcfsEcsVYWcs86ub5 VoHEBhfmQqmm9aLCCruiQ1 aL0oXKGjrGumDGHmhCNiFE Qim1IxYLpnqGScagCcBPox DUEdPEDooXTmemG6rjCgpx UfjwIwPXPuhZoaZIDyi0Zl HMAjBXpmg3Zage4qpNMtMH QzdbFYfHoxyZAeaE5pO5Qc HEDiHUJlbp1zAVSrxB0jYN kgv1LztwjnTYReMROkYVPe vtOizw2eZPCyaNWKAF2HZD triNMin1JdmtXmC9qGQET0 NUQwNjYwMjgxKSBleGNlcH BjRDOfqj34ECHunJ6koHon DUFscP8vjG4orVxjtS3lLp VcFnAhUBsdMU1qSTVrZ5zf lBHdQYLiAHEdO1qmGxHfdM 9jaFxmMVxjZjJcZnMyMFxw YXJ9fQ== Embedded Images (test code = [id number]) [facility] [id number] 19:23:05 Test Item Value Reference Range Interpretation Comments Case Report (test code Surgical Pathology ? ? = [id number]) ?Case: [id number] ? Authorizing Provider: ?Dominic Keita MD ? [...] Bx r/o HPylori ? Final Diagnosis (test h0wecQZkIFLmi3wjANMlxO code = [id number]) FuZzEwMzNcZnRuYmpcdWMx JGfabmPaUGtduDxsIBJ9ZP HiCF7btNnzgGc5oNktXNRh ulR4rBFlYEjag6unZDO1x9 fcujnuYTSuYDgrMa7wlZKc mVweKcEeQVIgSTc2oT14ZD NkzW4ocVLsOLv8JGAhmMIe htHlIoKeDZAydDNkuJL2ZL QhUJ8bwbzkZEfoGHzdPBTy jiJ4GGLktOUgC4CfSZVcYH 6vlinkGTU5PHnbWKRpKSN7 SbSyPVJcl9Cvjoa5PlFahK FyZFxwbGFpblxmczIwXHBh wxPJQkAQHX5IOQEUJZHFU2 xQZPNZED4GQTGJCagltLBn GQHnKGBdXMPIWY3KCUPfX1 kDEmOhTL8GOTSsGUTpvOEy VYDzimFOCoFERW0YDD1IPW wgQklPUFNZOlxwYXIgICAg JHElXRaOH1GJITNrBDIAK9 OIKCfWBLgwWb6zXLNXNY2M X2uBY1AIMISKEH1ZVJlaPJ YnWKFjDVNxVD8GYElqRQJZ MM3HFUDYXZHFXOqEOLSTHB ODFWtIPRJDJ1HUQJkIBUHe fvslPXLuSk8fC2FNKQUOUU wgQklPUFNZOlxwYXIgICAg HNIjUOOZL6DLVjOVKU0VP4 0DLHEDCWMUKP9FHUSCJMcJ SA0JQGFEKTBQQTKNW2VdyV FyICAgICAgLSBOTyBFVklE EH4JUHYWQbLKJLfXQTOrLY lTRUFTRVxwYXIgICAgICAt GG4RDDlgPKWGPG8MRPDZVt dBTklTTVMgSURFTlRJRklF ZGUXUFMLKW1VJu6XMEGVAx xwYXJccGFyfXtccnRmMVxz e7OfV8ZwYjAzTRngvcHqUV JvBdcfmjlpTKFaNCB3mtPe MBUfSFvvHGXqFDauKc0awM NblGopZhXlMWQdq1feimFZ YDdzLsHvD280OJSoCElqz7 ttf0MvPVGhwZZcm9O1QBYY myfbkDu8y0kfPnVyJcO6pZ HmUPzjN4ydoyVybNFlI6Qo oNIsaNt1kPntR23en4P1Dc jcD2xcJORdTGGcX3GaDX1e FMTaKwo9TMX9ZXR8OIEdXM VfY2ZpBR3lVNGpoZHdDBg4 n7cjlFoqDWKzSPF7n9kcJR dydgK7NW6zqh6xtWv3o0ch czEgRGVmYXVsdCBQYXJhZ3 ZrjWuzVb5hmUh9pLmqTjve BMU6Iau8SM7fzz08kqg0qY epCYXpgpymIwN0CSuuLAWt kjroYEy6WSozQSDayLH3PY SzuZDgN3UgWQGbHO4rfcm7 TXH3BQloBOAvGgV7KJPezX FnKLDtcOcySWvli492NZF9 XrPmAK6qQ4Guy1I9aL7wnY ChYPKitPMiYtKbMKXzar9a pZLrNQwcb5NzBRD0yqX7tF HjuCEzXALdFC40Ibkqy9En OiozWJM8ZXYzcwNzu6Rps0 muEuApsmApH6ynB8NpJOVu BPBkIMTiMqDmdhYyk0Fjb7 RicRVeuRl7y3loSSOnHHSm hMlbq1hbZFW8MWMpO4E2fE Woe6igUNqmNBQdrLQ4wpS5 HKTxqILnH5EbeY3eSIXnTU 1kylk3d9csIJH3ZOgaDJLt GeQ0pcJ0AMRioMJeJQXooT aoIXuyv567EAQ4TzNiJIKw y7RrT8RwaHsbB52zsEobR1 2xZOVyyHspjU5eyRyhmB5c ZjBcZnMyNFxxbFxwbGFpbl xmMVxmczIwXGxhbmcxMDMz DNbfP1yvMnVuDSPdiAdqLI rzi5NsECZaNHXmWyoeaaEo XHBhciBJIGhhdmUgcGVyc2 9uYWxseSByZXZpZXdlZCBh bOehh5TmA4agFR1rH6PrpJ LqnfAwilHzYDetFWTew1d1 fOSypZdax8QlwPApLD90kr YhGLInMAA5JKIdg8knQJ73 uzntDfDzdI87wnOjrbQvBI Sef8vzE4wdsLJyk2Wzv2Qt btSaBExsy6XlDK6idHAuwx sqrMM2EDPqaBLjfkIwalD5 nQufBEVrgA5awY8xbBcemO 2rNcQmHuOaRZfwRP9eXHZq U9ukaZPqROFvRLJnV6cmMe EhrD5ykJzyBwfrddK6NTWi cn19 Clinical Information Shivani Schuler is a (test code = 47 year old female [id number]) with IDA1. Gastric polyp x 6 r/o adenoma2.Duodenal Bx, r/o Celiac disease 3. Gastric Bx r/o HPylori Gross Description (test q9uqnOEyRQOnaPFEGRR1LT code = [id number]) VzWM3hvSujuLn4hYajSEEb esV8hXCtHHlyt6yhFZE3w8 xetdCTByaiBEPmSD5fYCmu UOBxCU5tCtCrZGBfIlAlIH BhcGVydzEyMjQwXHBhcGVy nME0LDShMJ0zghyaXRmrUM hsPFGznvQ0SCDysNPnF8Ie JXYnFK3teglzMHS4VKDYDm aqZu5tcVIpgRkrCyYoQeLj YXJzZXQwXGZuaWwgQXJpYW n1hY6DCkcvTUX6SWHJYyiv YwfkwDxwj2MleWXwTMSaGU xcaWQgNTEwMDAgXFxkYiBP EaJoBoB3Yet3QKW9OaT2FA d9SAPYIYCyCidmDZC9IvS1 ZGl8NVJaHC0tRRukxGSpDZ sbQkoqNXcgC386OUctQWWi I1JxT2MiWKdoKfXeQKimSH DtTLAnUSjbVJWiP7OGMWUr MTJ5CuGtJMNkHIm8BSzqF4 JIXXPmKPZgRkY4QNHiThN3 RHg9BPXTOg8kZPzwMqLtGX k4SKQ3NBi0FcQlWBRnMdDu STRvRGZhWMogsGYqKG5iqH puSMEaVA1CEJTwROegZKRw WeCoH7DWU0kDCK4bCYirfV JjaFxmczIyXHBhciANClxw VPVmVB2PRBOaARhqOXw9pj ZrJKIxPiYlVLRlB31qh0GD n3RkDJ2CUHz6hbBievsedG 6pVCCekwZuDKhRpSNzqT0v crGHDIvrKWByS8FxhkMtKS ikFZComv6quIjbHUpjVoVv bGVkIHdpdGggdGhlIHBhdG zdrnZyL5N7yzAnXF1eFDVQ FAWobE8uCGWnMZFuu4IgvX XxjHgnU6BazLQmVcCbr7v1 oBT0XBUoshMcSTKqdTVrHY Gckq9oGDogCeApY6X4CZKm HWXvz34ihDD8stHxJkAwsC o0rRKgSLM3ZN9fcLuktiUb r9o9mM8oVHJcd3I9URDop4 G1NCEanaTnlZZtqGAqBLAh AY4tvqOsDZ65MCRnXIgtPG mfZGW5BPR7RZBqbFYal1yx eeskMj3lLHkoBV2kCOyqRY 67RBAfKFyqOWTkY1CpJ5W8 GXbnESYqBKRqrSXtgG6brq FufnVibKp6RDTqGZJ4vMOd nQdkXIGiWlrdnXT9CYGoAr VjklObg2UcrTk0rGGxCTlq IOJduT3nvP5cYTNwXSVbqw YUXiuqLOMfIUarr5LnRFmh cGljWHNhMzAgDQpcZXBpY0 6jg3HBv9Gpf6tqqZrlw6Th cBHfQQ8ysBZkXI4Is5mhYW VzcPLaUZN2SHqrv7xbLQqs MOJ5MMZiCcYwLXCmIG2KMn CpOMpmRXy9HPwhPRk9CRl2 KD0XFpBzIORpOoa1XuH6Pv HmMEk6ERrbBN3HCVW4IYQh OMBbAYxtPRI6ZBNaQQi0JO IgXFxzcyAzIFxcZmwgXFxu C81hlOWfGNkqSxSnMTwziR dlBFVcLYD9VB4NLZLpVyXf X5XFH0gNNS1dZcbssnSzOK RdfeBHQxxgVQTtAG6YLOIc CDvmHEq6pdWwHTPgQuSfLQ DfN15dy3ROc0OmSC8HBLh7 ysXryhlnuL4bHGQpipEoq7 IzMFxlcGljWHNiMzAgDQpT eWBdaJ7vhcNQNVxpDATzZ4 GtgaJmJHwaVYQffa4mfAkc IGxhYmVsbGVkIHdpdGggdG nrKBBpbMicsqErE3M4kiPn VR6aWILYYWCqvP3xYLZkUX WnWZWcHEOuvG5nIAR9n8Uf moRdBSBYKIIirGmgZH65rB BjZWxpYWMgZGlzZWFzZSBh ihXbkkIhh03vlfZxp8HnAM 6ggIuzAFxSQYgxZmDnRB5p AEKwqyDyi1IzYV1jQZQamZ DfQGDbevuqyJRdIQf9xKHy QEOpIaKtlRdjz1ElWDEcGO qrAM33frYqUC3yPLvrBU2e LQpnAB9wFHKwILPpZLRrKa HgpTXdXmYyeVNpBsMqJ92g GrOIsULca8BbM1buTQ3kcD KoAshivYBhBCMfvWklz4Qn cJIeULRwz7JllRBjZCckAU 6eTCP5Ft8ieLSbCZDvyzE0 p8RwWXlxYGCpCyzoXFGnIW fzu0CbIMXfvSZQc6FgZE3Y XHBhciANClxzYTMwXGVwaW GEn5JhJEBRCadjtAuhEnLa uIPsFvG3VMKsePKiQYC5HX 2nrOkwHXVyGWk2FAdjVOYk J5BhE6BzHMbgBgBjSPsnUX FtGUTpKCgxOMCzP1IOMNFi QEO8ZpFzKFXiQDk4CBvsC9 AYNAFmWMNvFlL0CKE2JiL0 RAb8XGLHSp7tFPloWuBfAK MiMeD2FGz4RdRrUPVtIhPh BZZxXRUhGCkkaXIqUT3fhR prSCYpJKBoUKP4SQQknQLW o8ZnKPQeRKejLzPpJHKGEK DTDA1SRySGFVDqTmAcdXYm XZ9KJUCapeFnBJjpiSnzrS 3bnVVbG4auSwYxVcgvdQzn TmVzdERvYzEgDQpcbHRycG FyXGxpbjBccmluMFxzYjMw RVMcrWAMx2LpVKEMJyTaKD NpbWVuIEMgaXMgcmVjZWl2 ASKbgY7bGi3srEAwzN6ncV SuWUdaUZLms7b6dNC5tZFd sYR6zZFlrZczEzLqLY2ryB HcITRTON21kCAhryJmWOMe wP2gQCDgWKQpFNF7tczfCI TIYBU3yFTxh0L0CFsrEXS1 lF3wkDybEaOjG9S6IGGySG Ecg79zzOJ7lxJoYxTpTQKe jh5hcM0wFJkvssGawLvugj Xlu7S1MWNxj0C3NMRxcgMr mUEikTUrFUSlXaW3UZWtCf J2QMLrESVrxKPhRWYnAC6x VGhlIHNwZWNpbWVuIGlzIG GpdBNnjpFpVBFhpd40U6cn FGVbfY1kp7poFlMvKEPiAJ SjvNXqrOU9HFFitO1nuJ42 pzLogvHTDS5saXMiEO8WOV NiMFxlcGljWHNiMCANClxw ZTBoGMqfm1SdNUghdFudRU WsZoOdCPkUuXieZGZBC6aw nOMyGIwuPDEOLUgXV6BWAA 8FWARncAZVQCL3EJ2nWVey ZVLnG5ZyL8KvivE2n4yknF hpo0IvbRNgQR4ecQUyHU0U XHBhcmQgDQp9 Disclaimer (test code = d7mjyHHsYNEcw1boXESycI [id number]) FuZzEwMzNcZnRuYmpcdWMx VVlzphOkVPaep9FiG5RsZy AwMFxhbnNpXGRlZmxhbmcx ICOdPGP7lcIkPGQnURrkFG MuQYvyNj4nkYKkfFshCzAu NUCxb5elykXYHXbhXtVgL0 46VTNxVCixv0ppq9YfJOFc cBAcr7B6PNVCudnxjJm9rJ awG01vk8X0PhwzN2atKSPg SFXxB2AkHF5oVFBgWhl7HC J2VMM9QWVxWMNtE4QqPT0i APHjoABzQLk0p2ideEffYN TdKPC6s5lcWGkgbhHoEK5h tf5hkUx9h5jqsdDsVTIpZY XisBRWJOMyD9AdvZmzTj7g wCh5qOybQayvDRU7Yqv2KE 9jbg33twq1jQhnBRVhlwoh EiY3NBxhGUDvpgyiRHs1DA ktBLLlgJY6VRWwbROyI6Mh XWImLH6lgqm9CPK2CDphNT OoSmM5JOUiwMHmUUWhwVkb BVtnz295SVA4WcPeNQ6cF9 Tix8M9zS2jhUFcODPrbUPh DhZrKHXxwv4egGZsUQmwd1 SlEHM3gwX3tTAjmHVvABPx PC03Ecepe6CoMeugk7TqS0 7flMI7PIuik0kgZJ4jQoE8 qmHnMAgld8yatW6aNsX8AW suEE5vGJ3qNLUdlQ4lujvx XHBnYnJkcmhlYWRccGdicm HbWe7csIixRXR8SEorP2uc eH3vPtR4JKzgE7cwsH5gFR t1WUycjSN8TKVugB9kPK9w wmyuw6lzTNunDYynGXGgpt F5ynG2IQUawCTlP5YciI7u XLGyRK0qcluxc7rzNLA2XI yyAWHvPGP3LnJbVCNso6Ts kaj3ZpJlz4AvoDDjNGctB0 2qy296QOAlowOgH3mseQLn fjtnpEDlglxhBNmzpgK3UJ PjuiMqq0CeAQIzKAD6NWyg BFoukOJlILEmkQvik5iqM2 RscGFyXHBsYWluXGYxXGZz MjBcbGFuZzEwMzNcaGljaF yjZFtzMuOlOLRcHIijQ1gr NxNsI7DaRPYxYvHuhOBpZ6 ggVGhpcyByZXBvcnQgbWF5 BVvcY8k8WPJljjYuyXn8zh IbOfPkEMOdAXP4XVfbmERt FJCka7MozfbsrRKqKq1paF XxJDIgqB2vKNLzGEZkSKix ID3dfEk1PRCFeVZtjLSfOi YGHWKpFH40fyEqXDZDrwnm e7L1BWleGOMrb2IiiCTgO2 eio8BwKDEml10lQH1dj7N5 f4onSDW7KO6to8LuJTQxvX OmpSBjNVGnl5Jpzxtda4Gt JTVyheKqd0PzLVGsqnKwaD RtEMMdnpUydf0lhfJnBTKf YZIbQ5UfcvrtjBrtygQpNQ Omud4trgIwASD0SREVBXCu BGOko3BqkZ4vvHBTVJF0eA Hiiz5lbaATzPHjETXopn63 KTNsBF6mZ8xsHURrWCRvzp RkuGNqg7AxDSKqoVI0gCGd WK8RDjWAa91lZTOyKFEHna OvBFGdgQaeaCT2rjB7zG7k IChGREEpLlx+IFRoZSBGRE JsKQ1axnTmf0JebaKtmWce ARGtzNXff1QcjYNfv6MeeR fet0GrpFMkeXZfIA7fEPKc clxwYXIgVVRNQiBMYWJvcm P5y9YrTBVbMJHgYHS5xRlb etr5LUYxjT7mDRWjM7rldh jvSMqzHRNze5CprM0ljLFC dIXxf6YzmPRuuSXGmWFiBD 2euqLwTYfADOtTRKT5boWx TCFtk2KkULmpI1fgX16hoI drfQy2bVK3FLR1mI1gKwt+ IFxwYXJccGFyIEFwcHJvcH FyHXBdeBplztZlF4FgcbBk qY5ssKJkezRdEA0iMX5qQ3 T0gCVzRWNksiPac1sbWSle dmUgYmVlbiByZXZpZXdlZC Qzk6XpBVwmZUF8PDndalHo bmNsdWRpbmcgSCZFLCBTcG GemXOoGVZ2IPeihvGyznNz GN8gkO6ffGwoeV5agVLliG F7gqjoADZeFYZwdOjqCRHc RY2glVhikT4vZrEqIsYoKG uqUA0dDXGaK7fdoCUuYSAt RVRoW9iaEvNpyX7ecYfyAG xjZjJcZnMyMFxwYXJccGFy XHBsYWluXGYxXGZzMjBcbG FuZzEwMzNcaGljaFxmMVxk UxRjVPNcLDetT4urCoGnY2 UkOFGoOhGxcNUkG2mjGYzt FPB4IQIbSC2otOPyWY77dX Bgx6idRDppgUqyxe7fW95q jVGdJSbbnBfvDUKpd64ka0 WzYGKjjiCuji6qKOIhdzA1 pI9vJNJkfJbeGPUwpVZtXZ Zpt8ItKElpcJLaxkAtKWax EUNiCQEpkYKxfjF8feGwjh ZjozSmLCDgkNjsGRQqu5Sf YHYoCBefh4Jzfa0aeRGxAF ZiypJObVyxnXGzhG2aO0Mk TORkGDYgbf2dWIPrvM7nSL lhe1LkvjqwGDCpWAWsPMHi wwFucu3wMKNnmCVVND0HUM ohhOEhm0IwwyCxY0nMURC5 NUQwNjYwMjgxKSBleGNlcH RwICIoke27SKPetB9joMjh GLFevJ0umP2btOakmU4gHk EiWyPlPDhjNX3dGHWiH0sg wKIeSHUfEGWuL8uuOpVahL 9jaFxmMVxjZjJcZnMyMFxw YXJ9fQ== Embedded Images (test code = [id number]) [facility]. METABOLIC PANEL ([id number])2022-11-03 17:25:32 Test Item Value Reference Range Interpretation Comments NA (test code = 139 mmol/L 135-145 0829568496) K (test code = 4.2 mmol/L 3.5-5.0 4933858912) CL (test code = 105 mmol/L 98-108 1826491791) CO2 TOTAL (test code 26 mmol/L 23-31 = 7554047314) AGAP (test code = 8 2-16 7379470486) BUN (test code = 9 mg/dL 7-23 6296570651) GLUCOSE (test code = 93 mg/dL 70-110 4677958946) CREATININE (test code 0.60 mg/dL 0.50-1.04 = 1565797173) TOTAL BILI (test code 0.2 mg/dL 0.1-1.1 = 9259819388) CALCIUM (test code = 9.2 mg/dL 8.6-10.6 0275985742) T PROTEIN (test code 7.0 g/dL 6.3-8.2 = 1642723220) ALBUMIN (test code = 4.2 g/dL 3.5-5.0 8842212025) ALK PHOS (test code = 118 U/L 34-122 7487972547) ALTv (test code = 34 U/L 5-35 1742-6) AST(SGOT) (test code 34 U/L 13-40 = 9807303102) eGFR (test code = 108.1 mL/min/1.73m2 4055986143) ZAINAB (test code = ZAINAB) Association of [...] or urine or abnormalities in imaging tests). [facility]. METABOLIC PANEL ([id number])2022-11-03 17:25:32 Test Item Value Reference Range Interpretation Comments NA (test code = 139 mmol/L 135-145 7216247443) K (test code = 4.2 mmol/L 3.5-5.0 6227444566) CL (test code = 105 mmol/L 98-108 3637267580) CO2 TOTAL (test code 26 mmol/L 23-31 = 5095386480) AGAP (test code = 8 2-16 0061003260) BUN (test code = 9 mg/dL 7-23 2284056716) GLUCOSE (test code = 93 mg/dL 70-110 7710459514) CREATININE (test code 0.60 mg/dL 0.50-1.04 = 8660943484) TOTAL BILI (test code 0.2 mg/dL 0.1-1.1 = 4239698299) CALCIUM (test code = 9.2 mg/dL 8.6-10.6 4903334273) T PROTEIN (test code 7.0 g/dL 6.3-8.2 = 7825019387) ALBUMIN (test code = 4.2 g/dL 3.5-5.0 8075345775) ALK PHOS (test code = 118 U/L 34-122 0760593227) ALTv (test code = 34 U/L 5-35 1742-6) AST(SGOT) (test code 34 U/L 13-40 = 5234314853) eGFR (test code = 108.1 mL/min/1.73m2 0532166299) ZAINAB (test code = ZAINAB) Association of [...] or urine or abnormalities in imaging tests). [facility]. METABOLIC PANEL ([id number])2022-11-03 17:25:32 Test Item Value Reference Range Interpretation Comments NA (test code = 139 mmol/L 135-145 1120987533) K (test code = 4.2 mmol/L 3.5-5.0 3414018611) CL (test code = 105 mmol/L 98-108 4814951590) CO2 TOTAL (test code 26 mmol/L 23-31 = 1800730621) AGAP (test code = 8 2-16 9740770455) BUN (test code = 9 mg/dL 7-23 8246101123) GLUCOSE (test code = 93 mg/dL 70-110 2155584482) CREATININE (test code 0.60 mg/dL 0.50-1.04 = 0095987045) TOTAL BILI (test code 0.2 mg/dL 0.1-1.1 = 5386689287) CALCIUM (test code = 9.2 mg/dL 8.6-10.6 3776890105) T PROTEIN (test code 7.0 g/dL 6.3-8.2 = 2932917301) ALBUMIN (test code = 4.2 g/dL 3.5-5.0 0135318484) ALK PHOS (test code = 118 U/L 34-122 8933081290) ALTv (test code = 34 U/L 5-35 1742-6) AST(SGOT) (test code 34 U/L 13-40 = 0661336428) eGFR (test code = 108.1 mL/min/1.73m2 8333307014) ZAINAB (test code = ZAINAB) Association of [...] or urine or abnormalities in imaging tests). [facility]. METABOLIC PANEL ([id number])2022-11-03 17:25:32 Test Item Value Reference Range Interpretation Comments NA (test code = 139 mmol/L 135-145 1262538563) K (test code = 4.2 mmol/L 3.5-5.0 9064028066) CL (test code = 105 mmol/L 98-108 6901603975) CO2 TOTAL (test code 26 mmol/L 23-31 = 2849949772) AGAP (test code = 8 2-16 2572484108) BUN (test code = 9 mg/dL 7-23 7988090610) GLUCOSE (test code = 93 mg/dL 70-110 6776061803) CREATININE (test code 0.60 mg/dL 0.50-1.04 = 8650969034) TOTAL BILI (test code 0.2 mg/dL 0.1-1.1 = 8850114204) CALCIUM (test code = 9.2 mg/dL 8.6-10.6 7325447325) T PROTEIN (test code 7.0 g/dL 6.3-8.2 = 9153271087) ALBUMIN (test code = 4.2 g/dL 3.5-5.0 4311485793) ALK PHOS (test code = 118 U/L 34-122 2310510275) ALTv (test code = 34 U/L 5-35 1742-6) AST(SGOT) (test code 34 U/L 13-40 = 9458813299) eGFR (test code = 108.1 mL/min/1.73m2 8482517548) ZAINAB (test code = ZAINAB) Association of [...] or urine or abnormalities in imaging tests). [facility]. METABOLIC PANEL ([id number])2022-11-03 17:25:32 Test Item Value Reference Range Interpretation Comments NA (test code = 139 mmol/L 135-145 0341626409) K (test code = 4.2 mmol/L 3.5-5.0 9579541909) CL (test code = 105 mmol/L 98-108 6781200933) CO2 TOTAL (test code 26 mmol/L 23-31 = 5128483467) AGAP (test code = 8 2-16 0307571055) BUN (test code = 9 mg/dL 7-23 4294331948) GLUCOSE (test code = 93 mg/dL 70-110 7039883911) CREATININE (test code 0.60 mg/dL 0.50-1.04 = 0998112895) TOTAL BILI (test code 0.2 mg/dL 0.1-1.1 = 7032476442) CALCIUM (test code = 9.2 mg/dL 8.6-10.6 9212706561) T PROTEIN (test code 7.0 g/dL 6.3-8.2 = 8043328567) ALBUMIN (test code = 4.2 g/dL 3.5-5.0 2226575010) ALK PHOS (test code = 118 U/L 34-122 8281271919) ALTv (test code = 34 U/L 5-35 1742-6) AST(SGOT) (test code 34 U/L 13-40 = 7623990392) eGFR (test code = 108.1 mL/min/1.73m2 2092337244) ZAINAB (test code = ZAINAB) Association of [...] or urine or abnormalities in imaging tests). [facility]. METABOLIC PANEL ([id number])2022-11-03 17:25:32 Test Item Value Reference Range Interpretation Comments NA (test code = 139 mmol/L 135-145 7449814222) K (test code = 4.2 mmol/L 3.5-5.0 7812207051) CL (test code = 105 mmol/L 98-108 8709125913) CO2 TOTAL (test code 26 mmol/L 23-31 = 8733452945) AGAP (test code = 8 2-16 3712802715) BUN (test code = 9 mg/dL 7-23 9051917658) GLUCOSE (test code = 93 mg/dL 70-110 9375607095) CREATININE (test code 0.60 mg/dL 0.50-1.04 = 2176740056) TOTAL BILI (test code 0.2 mg/dL 0.1-1.1 = 0403699383) CALCIUM (test code = 9.2 mg/dL 8.6-10.6 3173090804) T PROTEIN (test code 7.0 g/dL 6.3-8.2 = 8564733254) ALBUMIN (test code = 4.2 g/dL 3.5-5.0 9532092556) ALK PHOS (test code = 118 U/L 34-122 6301602021) ALTv (test code = 34 U/L 5-35 1742-6) AST(SGOT) (test code 34 U/L 13-40 = 2443963523) eGFR (test code = 108.1 mL/min/1.73m2 7445050143) ZAINAB (test code = ZAINAB) Association of [...] or urine or abnormalities in imaging tests). [facility]. METABOLIC PANEL ([id number])2022-11-03 17:25:32 Test Item Value Reference Range Interpretation Comments NA (test code = 139 mmol/L 135-145 1853430718) K (test code = 4.2 mmol/L 3.5-5.0 7252299136) CL (test code = 105 mmol/L 98-108 9727056777) CO2 TOTAL (test code 26 mmol/L 23-31 = 5667571618) AGAP (test code = 8 2-16 1821905292) BUN (test code = 9 mg/dL 7-23 5453065463) GLUCOSE (test code = 93 mg/dL 70-110 6849202536) CREATININE (test code 0.60 mg/dL 0.50-1.04 = 6825179845) TOTAL BILI (test code 0.2 mg/dL 0.1-1.1 = 7651872590) CALCIUM (test code = 9.2 mg/dL 8.6-10.6 9505248676) T PROTEIN (test code 7.0 g/dL 6.3-8.2 = 7430262053) ALBUMIN (test code = 4.2 g/dL 3.5-5.0 7373310132) ALK PHOS (test code = 118 U/L 34-122 3316919937) ALTv (test code = 34 U/L 5-35 1742-6) AST(SGOT) (test code 34 U/L 13-40 = 8389471256) eGFR (test code = 108.1 mL/min/1.73m2 7073335414) ZAINAB (test code = ZAINAB) Association of [...] or urine or abnormalities in imaging tests). [facility]. METABOLIC PANEL ([id number])2022-11-03 17:25:32 Test Item Value Reference Range Interpretation Comments NA (test code = 139 mmol/L 135-145 0261831015) K (test code = 4.2 mmol/L 3.5-5.0 1195954724) CL (test code = 105 mmol/L 98-108 4368658950) CO2 TOTAL (test code 26 mmol/L 23-31 = 7254376029) AGAP (test code = 8 2-16 2092012505) BUN (test code = 9 mg/dL 7-23 5542781584) GLUCOSE (test code = 93 mg/dL 70-110 4345748987) CREATININE (test code 0.60 mg/dL 0.50-1.04 = 3372406773) TOTAL BILI (test code 0.2 mg/dL 0.1-1.1 = 9319830330) CALCIUM (test code = 9.2 mg/dL 8.6-10.6 8769821290) T PROTEIN (test code 7.0 g/dL 6.3-8.2 = 1848973360) ALBUMIN (test code = 4.2 g/dL 3.5-5.0 9595510493) ALK PHOS (test code = 118 U/L 34-122 5896124004) ALTv (test code = 34 U/L 5-35 2-6) AST(SGOT) (test code 34 U/L 13-40 = 1490588706) eGFR (test code = 108.1 mL/min/1.73m2 7970605294) ZAINAB (test code = ZAINAB) Association of [...] or urine or abnormalities in imaging tests). [facility]. METABOLIC PANEL ([id number])2022-11-03 17:25:32 Test Item Value Reference Range Interpretation Comments NA (test code = 139 mmol/L 135-145 8192908325) K (test code = 4.2 mmol/L 3.5-5.0 8773551211) CL (test code = 105 mmol/L 98-108 0839444968) CO2 TOTAL (test code 26 mmol/L 23-31 = 8714870906) AGAP (test code = 8 2-16 0913348954) BUN (test code = 9 mg/dL 7-23 7432147255) GLUCOSE (test code = 93 mg/dL 70-110 7287321842) CREATININE (test code 0.60 mg/dL 0.50-1.04 = 2365523679) TOTAL BILI (test code 0.2 mg/dL 0.1-1.1 = 1384744089) CALCIUM (test code = 9.2 mg/dL 8.6-10.6 8378831410) T PROTEIN (test code 7.0 g/dL 6.3-8.2 = 8473542219) ALBUMIN (test code = 4.2 g/dL 3.5-5.0 9774780996) ALK PHOS (test code = 118 U/L 34-122 5174982011) ALTv (test code = 34 U/L 5-35 1742-6) AST(SGOT) (test code 34 U/L 13-40 = 3440183375) eGFR (test code = 108.1 mL/min/1.73m2 38457-0) ZAINAB (test code = ZAINAB) Association of [...] or urine or abnormalities in imaging tests). [facility]. METABOLIC PANEL ([id number])2022-11-03 17:25:32 Test Item Value Reference Range Interpretation Comments NA (test code = 139 mmol/L 135-145 5309250359) K (test code = 4.2 mmol/L 3.5-5.0 6979219131) CL (test code = 105 mmol/L 98-108 1238339710) CO2 TOTAL (test code 26 mmol/L 23-31 = 7943578068) AGAP (test code = 8 2-16 1199454262) BUN (test code = 9 mg/dL 7-23 2549045118) GLUCOSE (test code = 93 mg/dL 70-110 7525446241) CREATININE (test code 0.60 mg/dL 0.50-1.04 = 1892208128) TOTAL BILI (test code 0.2 mg/dL 0.1-1.1 = 9081988206) CALCIUM (test code = 9.2 mg/dL 8.6-10.6 9781406219) T PROTEIN (test code 7.0 g/dL 6.3-8.2 = 6163301574) ALBUMIN (test code = 4.2 g/dL 3.5-5.0 2490227148) ALK PHOS (test code = 118 U/L 34-122 2914641117) ALTv (test code = 34 U/L 5-35 1742-6) AST(SGOT) (test code 34 U/L 13-40 = 1682100424) eGFR (test code = 108.1 mL/min/1.73m2 60194-5) ZAINAB (test code = ZAINAB) Association of [...] or urine or abnormalities in imaging tests). [facility]. METABOLIC PANEL ([id number])2022-11-03 17:25:32 Test Item Value Reference Range Interpretation Comments NA (test code = 139 mmol/L 135-145 9946032359) K (test code = 4.2 mmol/L 3.5-5.0 7927977207) CL (test code = 105 mmol/L 98-108 3906196363) CO2 TOTAL (test code 26 mmol/L 23-31 = 8590178396) AGAP (test code = 8 2-16 1237344151) BUN (test code = 9 mg/dL 7-23 9417508973) GLUCOSE (test code = 93 mg/dL 70-110 5924304548) CREATININE (test code 0.60 mg/dL 0.50-1.04 = 6902685824) TOTAL BILI (test code 0.2 mg/dL 0.1-1.1 = 3407814464) CALCIUM (test code = 9.2 mg/dL 8.6-10.6 2865586386) T PROTEIN (test code 7.0 g/dL 6.3-8.2 = 8148070790) ALBUMIN (test code = 4.2 g/dL 3.5-5.0 5410592931) ALK PHOS (test code = 118 U/L 34-122 5032383897) ALTv (test code = 34 U/L 5-35 2-6) AST(SGOT) (test code 34 U/L 13-40 = 1913317775) eGFR (test code = 108.1 mL/min/1.73m2 76791-2) ZAINAB (test code = ZAINAB) Association of [...] or urine or abnormalities in imaging tests). [facility]. METABOLIC PANEL ([id number])2022-11-03 17:25:32 Test Item Value Reference Range Interpretation Comments NA (test code = 139 mmol/L 135-145 7516678523) K (test code = 4.2 mmol/L 3.5-5.0 1121706292) CL (test code = 105 mmol/L 98-108 4040029776) CO2 TOTAL (test code 26 mmol/L 23-31 = 5014693595) AGAP (test code = 8 2-16 2175699825) BUN (test code = 9 mg/dL 7-23 2464730861) GLUCOSE (test code = 93 mg/dL 70-110 8910727333) CREATININE (test code 0.60 mg/dL 0.50-1.04 = 5843841878) TOTAL BILI (test code 0.2 mg/dL 0.1-1.1 = 3294725342) CALCIUM (test code = 9.2 mg/dL 8.6-10.6 3491663190) T PROTEIN (test code 7.0 g/dL 6.3-8.2 = 7470880048) ALBUMIN (test code = 4.2 g/dL 3.5-5.0 8078556992) ALK PHOS (test code = 118 U/L 34-122 7899992949) ALTv (test code = 34 U/L 5-35 1742-6) AST(SGOT) (test code 34 U/L 13-40 = 9004068969) eGFR (test code = 108.1 mL/min/1.73m2 29782-7) ZAINAB (test code = ZAINAB) Association of [...] or urine or abnormalities in imaging tests). [facility] WITH [id number] 17:18:52 Test Item Value Reference Range Interpretation Comments WBC (test code = 7.41 See_Comment [Automated 7690-2) message] The sy stem which generated this result transmitted reference range : 4.30 - 11.10 10*3/?L. The reference range was not used to interpret this result as normal/abnormal . RBC (test code = 4.20 See_Comment [Automated 269-8) message] The sy stem which generated this [...] RDW-SD (test code = 46.2 fL 39.0-49.9 10623-4) RDW-CV (test code = 17.9 % 12.0-15.5 H 788-0) PLT (test code = 304 See_Comment [Automated 777-3) message] The sy stem which generated this result transmitted reference range : 166 - 358 10*3/ ?L. The reference r kuldip was not used to interpret this result as normal/abnormal . MPV (test code = 11.0 fL 9.5-12.9 02224-3) NRBC/100 WBC (test 0.0 See_Comment [Automat ed code = 5491322904) message] The system which generated this result transmitted reference range : 0.0 - 10.0 /100 WBCs. The refer ence range was not u sed to interpret th is result as normal/abnormal . NRBC x10^3 (test code See_Comment [Auto mated = 0673638092) message] The s ystem which generated this result transmitted reference range : 10*3/?L. The reference range was not used to interpret this result as normal/abnormal . GRAN MAT (NEUT) % 68.6 % (test code = 770-8) IMM GRAN % (test code 0.70 % = 8366934151) LYMPH % (test code = 19.8 % 736-9) MONO % (test code = 5.3 % 5905-5) EOS % (test code = 5.1 % 713-8) BASO % (test code = 0.5 % 706-2) GRAN MAT x10^3(ANC) 5.08 10*3/uL 1.88-7.09 (test code = 2117717099) IMM GRAN x10^3 (test 0.05 10*3/uL 0.00-0.06 code = 5131479145) LYMPH x10^3 (test code 1.47 10*3/uL 1.32-3.29 = 731-0) MONO x10^3 (test code 0.39 10*3/uL 0.33-0.92 = 742-7) EOS x10^3 (test code = 0.38 10*3/uL 0.03-0.39 711-2) BASO x10^3 (test code 0.04 10*3/uL 0.01-0.07 = 704-7) Lab Interpretation Abnormal (test code = 37217-3) [facility] WITH [id number] 17:18:52 Test Item Value Reference Range Interpretation [...] RDW-SD (test code = 46.2 fL 39.0-49.9 55680-9) RDW-CV (test code = 17.9 % 12.0-15.5 H 788-0) PLT (test code = 304 See_Comment [Automated 777-3) message] The sy stem which generated this result transmitted reference range : 166 - 358 10*3/ ?L. The reference r kuldip was not used to interpret this result as normal/abnormal . MPV (test code = 11.0 fL 9.5-12.9 36921-4) NRBC/100 WBC (test 0.0 See_Comment [Automat ed code = 1728430400) message] The system which generated this result transmitted reference range : 0.0 - 10.0 /100 WBCs. The refer ence range was not u sed to interpret th is result as normal/abnormal . NRBC x10^3 (test code See_Comment [Auto mated = 2124003582) message] The s ystem which generated this result transmitted reference range : 10*3/?L. The reference range was not used to interpret this result as normal/abnormal . GRAN MAT (NEUT) % 68.6 % (test code = 770-8) IMM GRAN % (test code 0.70 % = 6391307733) LYMPH % (test code = 19.8 % 736-9) MONO % (test code = 5.3 % 5905-5) EOS % (test code = 5.1 % 713-8) BASO % (test code = 0.5 % 706-2) GRAN MAT x10^3(ANC) 5.08 10*3/uL 1.88-7.09 (test code = 0296771699) IMM GRAN x10^3 (test 0.05 10*3/uL 0.00-0.06 code = 5251610535) LYMPH x10^3 (test code 1.47 10*3/uL 1.32-3.29 = 731-0) MONO x10^3 (test code 0.39 10*3/uL 0.33-0.92 = 742-7) EOS x10^3 (test code = 0.38 10*3/uL 0.03-0.39 711-2) BASO x10^3 (test code 0.04 10*3/uL 0.01-0.07 = 704-7) Lab Interpretation Abnormal (test code = 28044-6) [facility] WITH [id number] 17:18:52 Test Item Value Reference Range Interpretation Comments WBC (test code = 7.41 See_Comment [Automated 8786-2) message] The sy stem which generated this result transmitted reference range : 4.30 - 11.10 10*3/?L. The reference range was not used to interpret this result as normal/abnormal . RBC (test code = 4.20 See_Comment [Automated 872-8) message] The sy stem which generated this [...] RDW-SD (test code = 46.2 fL 39.0-49.9 13849-7) RDW-CV (test code = 17.9 % 12.0-15.5 H 788-0) PLT (test code = 304 See_Comment [Automated 777-3) message] The sy stem which generated this result transmitted reference range : 166 - 358 10*3/ ?L. The reference r kuldip was not used to interpret this result as normal/abnormal . MPV (test code = 11.0 fL 9.5-12.9 52278-6) NRBC/100 WBC (test 0.0 See_Comment [Automat ed code = 8087286839) message] The system which generated this result transmitted reference range : 0.0 - 10.0 /100 WBCs. The refer ence range was not u sed to interpret th is result as normal/abnormal . NRBC x10^3 (test code See_Comment [Auto mated = 8821716391) message] The s ystem which generated this result transmitted reference range : 10*3/?L. The reference range was not used to interpret this result as normal/abnormal . GRAN MAT (NEUT) % 68.6 % (test code = 770-8) IMM GRAN % (test code 0.70 % = 4975716964) LYMPH % (test code = 19.8 % 736-9) MONO % (test code = 5.3 % 5905-5) EOS % (test code = 5.1 % 713-8) BASO % (test code = 0.5 % 706-2) GRAN MAT x10^3(ANC) 5.08 10*3/uL 1.88-7.09 (test code = 5070227590) IMM GRAN x10^3 (test 0.05 10*3/uL 0.00-0.06 code = 4698257917) LYMPH x10^3 (test code 1.47 10*3/uL 1.32-3.29 = 731-0) MONO x10^3 (test code 0.39 10*3/uL 0.33-0.92 = 742-7) EOS x10^3 (test code = 0.38 10*3/uL 0.03-0.39 711-2) BASO x10^3 (test code 0.04 10*3/uL 0.01-0.07 = 704-7) Lab Interpretation Abnormal (test code = 46361-4) [facility] WITH [id number] 17:18:52 Test Item Value Reference Range Interpretation Comments WBC (test code = 7.41 See_Comment [Automated 9690-2) message] The sy stem which generated this result transmitted reference range : 4.30 - 11.10 10*3/?L. The reference range was not used to interpret this result as normal/abnormal . RBC (test code = 4.20 See_Comment [Automated 289-8) message] The sy stem which generated this [...] RDW-SD (test code = 46.2 fL 39.0-49.9 77880-2) RDW-CV (test code = 17.9 % 12.0-15.5 H 788-0) PLT (test code = 304 See_Comment [Automated 657-3) message] The sy stem which generated this result transmitted reference range : 166 - 358 10*3/ ?L. The reference r kuldip was not used to interpret this result as normal/abnormal . MPV (test code = 11.0 fL 9.5-12.9 59929-0) NRBC/100 WBC (test 0.0 See_Comment [Automat ed code = 8703393712) message] The system which generated this result transmitted reference range : 0.0 - 10.0 /100 WBCs. The refer ence range was not u sed to interpret th is result as normal/abnormal . NRBC x10^3 (test code See_Comment [Auto mated = 8504005967) message] The s ystem which generated this result transmitted reference range : 10*3/?L. The reference range was not used to interpret this result as normal/abnormal . GRAN MAT (NEUT) % 68.6 % (test code = 770-8) IMM GRAN % (test code 0.70 % = 5815518247) LYMPH % (test code = 19.8 % 736-9) MONO % (test code = 5.3 % 5905-5) EOS % (test code = 5.1 % 713-8) BASO % (test code = 0.5 % 706-2) GRAN MAT x10^3(ANC) 5.08 10*3/uL 1.88-7.09 (test code = 3252100025) IMM GRAN x10^3 (test 0.05 10*3/uL 0.00-0.06 code = 9616846236) LYMPH x10^3 (test code 1.47 10*3/uL 1.32-3.29 = 731-0) MONO x10^3 (test code 0.39 10*3/uL 0.33-0.92 = 742-7) EOS x10^3 (test code = 0.38 10*3/uL 0.03-0.39 711-2) BASO x10^3 (test code 0.04 10*3/uL 0.01-0.07 = 704-7) Lab Interpretation Abnormal (test code = 33940-1) [facility] WITH [id number] 17:18:52 Test Item Value Reference Range Interpretation [...] RDW-SD (test code = 46.2 fL 39.0-49.9 28839-8) RDW-CV (test code = 17.9 % 12.0-15.5 H 788-0) PLT (test code = 304 See_Comment [Automated 777-3) message] The sy stem which generated this result transmitted reference range : 166 - 358 10*3/ ?L. The reference r kuldip was not used to interpret this result as normal/abnormal . MPV (test code = 11.0 fL 9.5-12.9 12773-1) NRBC/100 WBC (test 0.0 See_Comment [Automat ed code = 3818194294) message] The system which generated this result transmitted reference range : 0.0 - 10.0 /100 WBCs. The refer ence range was not u sed to interpret th is result as normal/abnormal . NRBC x10^3 (test code See_Comment [Auto mated = 5231985245) message] The s ystem which generated this result transmitted reference range : 10*3/?L. The reference range was not used to interpret this result as normal/abnormal . GRAN MAT (NEUT) % 68.6 % (test code = 770-8) IMM GRAN % (test code 0.70 % = 3810645539) LYMPH % (test code = 19.8 % 736-9) MONO % (test code = 5.3 % 5905-5) EOS % (test code = 5.1 % 713-8) BASO % (test code = 0.5 % 706-2) GRAN MAT x10^3(ANC) 5.08 10*3/uL 1.88-7.09 (test code = 2846506230) IMM GRAN x10^3 (test 0.05 10*3/uL 0.00-0.06 code = 0182689209) LYMPH x10^3 (test code 1.47 10*3/uL 1.32-3.29 = 731-0) MONO x10^3 (test code 0.39 10*3/uL 0.33-0.92 = 742-7) EOS x10^3 (test code = 0.38 10*3/uL 0.03-0.39 711-2) BASO x10^3 (test code 0.04 10*3/uL 0.01-0.07 = 704-7) Lab Interpretation Abnormal (test code = 64736-2) [facility] WITH [id number] 17:18:52 Test Item Value Reference Range Interpretation Comments WBC (test code = 7.41 See_Comment [Automated 6690-2) message] The sy stem which generated this result transmitted reference range : 4.30 - 11.10 10*3/?L. The reference range was not used to interpret this result as normal/abnormal . RBC (test code = 4.20 See_Comment [Automated 459-8) message] The sy stem which generated this [...] RDW-SD (test code = 46.2 fL 39.0-49.9 44731-4) RDW-CV (test code = 17.9 % 12.0-15.5 H 788-0) PLT (test code = 304 See_Comment [Automated 777-3) message] The sy stem which generated this result transmitted reference range : 166 - 358 10*3/ ?L. The reference r kuldip was not used to interpret this result as normal/abnormal . MPV (test code = 11.0 fL 9.5-12.9 48200-5) NRBC/100 WBC (test 0.0 See_Comment [Automat ed code = 4774016467) message] The system which generated this result transmitted reference range : 0.0 - 10.0 /100 WBCs. The refer ence range was not u sed to interpret th is result as normal/abnormal . NRBC x10^3 (test code See_Comment [Auto mated = 8281050606) message] The s ystem which generated this result transmitted reference range : 10*3/?L. The reference range was not used to interpret this result as normal/abnormal . GRAN MAT (NEUT) % 68.6 % (test code = 770-8) IMM GRAN % (test code 0.70 % = 2622599313) LYMPH % (test code = 19.8 % 736-9) MONO % (test code = 5.3 % 5905-5) EOS % (test code = 5.1 % 713-8) BASO % (test code = 0.5 % 706-2) GRAN MAT x10^3(ANC) 5.08 10*3/uL 1.88-7.09 (test code = 7951399448) IMM GRAN x10^3 (test 0.05 10*3/uL 0.00-0.06 code = 8398776731) LYMPH x10^3 (test code 1.47 10*3/uL 1.32-3.29 = 731-0) MONO x10^3 (test code 0.39 10*3/uL 0.33-0.92 = 742-7) EOS x10^3 (test code = 0.38 10*3/uL 0.03-0.39 711-2) BASO x10^3 (test code 0.04 10*3/uL 0.01-0.07 = 704-7) Lab Interpretation Abnormal (test code = 06740-6) [facility] WITH [id number] 17:18:52 Test Item Value Reference Range Interpretation [...] RDW-SD (test code = 46.2 fL 39.0-49.9 67201-5) RDW-CV (test code = 17.9 % 12.0-15.5 H 788-0) PLT (test code = 304 See_Comment [Automated 777-3) message] The sy stem which generated this result transmitted reference range : 166 - 358 10*3/ ?L. The reference r kuldip was not used to interpret this result as normal/abnormal . MPV (test code = 11.0 fL 9.5-12.9 26239-6) NRBC/100 WBC (test 0.0 See_Comment [Automat ed code = 1114227410) message] The system which generated this result transmitted reference range : 0.0 - 10.0 /100 WBCs. The refer ence range was not u sed to interpret th is result as normal/abnormal . NRBC x10^3 (test code See_Comment [Auto mated = 1364288942) message] The s ystem which generated this result transmitted reference range : 10*3/?L. The reference range was not used to interpret this result as normal/abnormal . GRAN MAT (NEUT) % 68.6 % (test code = 770-8) IMM GRAN % (test code 0.70 % = 1087949542) LYMPH % (test code = 19.8 % 736-9) MONO % (test code = 5.3 % 5905-5) EOS % (test code = 5.1 % 713-8) BASO % (test code = 0.5 % 706-2) GRAN MAT x10^3(ANC) 5.08 10*3/uL 1.88-7.09 (test code = 7750910131) IMM GRAN x10^3 (test 0.05 10*3/uL 0.00-0.06 code = 7022330401) LYMPH x10^3 (test code 1.47 10*3/uL 1.32-3.29 = 731-0) MONO x10^3 (test code 0.39 10*3/uL 0.33-0.92 = 742-7) EOS x10^3 (test code = 0.38 10*3/uL 0.03-0.39 711-2) BASO x10^3 (test code 0.04 10*3/uL 0.01-0.07 = 704-7) Lab Interpretation Abnormal (test code = 88275-2) [facility] WITH [id number] 17:18:52 Test Item Value Reference Range Interpretation Comments WBC (test code = 7.41 See_Comment [Automated 4696-2) message] The sy stem which generated this result transmitted reference range : 4.30 - 11.10 10*3/?L. The reference range was not used to interpret this result as normal/abnormal . RBC (test code = 4.20 See_Comment [Automated 830-8) message] The sy stem which generated this [...] RDW-SD (test code = 46.2 fL 39.0-49.9 51139-8) RDW-CV (test code = 17.9 % 12.0-15.5 H 788-0) PLT (test code = 304 See_Comment [Automated 777-3) message] The sy stem which generated this result transmitted reference range : 166 - 358 10*3/ ?L. The reference r kuldip was not used to interpret this result as normal/abnormal . MPV (test code = 11.0 fL 9.5-12.9 98795-6) NRBC/100 WBC (test 0.0 See_Comment [Automat ed code = 7636140109) message] The system which generated this result transmitted reference range : 0.0 - 10.0 /100 WBCs. The refer ence range was not u sed to interpret th is result as normal/abnormal . NRBC x10^3 (test code See_Comment [Auto mated = 4591026897) message] The s ystem which generated this result transmitted reference range : 10*3/?L. The reference range was not used to interpret this result as normal/abnormal . GRAN MAT (NEUT) % 68.6 % (test code = 770-8) IMM GRAN % (test code 0.70 % = 7330174939) LYMPH % (test code = 19.8 % 736-9) MONO % (test code = 5.3 % 5905-5) EOS % (test code = 5.1 % 713-8) BASO % (test code = 0.5 % 706-2) GRAN MAT x10^3(ANC) 5.08 10*3/uL 1.88-7.09 (test code = 4923810721) IMM GRAN x10^3 (test 0.05 10*3/uL 0.00-0.06 code = 6475539260) LYMPH x10^3 (test code 1.47 10*3/uL 1.32-3.29 = 731-0) MONO x10^3 (test code 0.39 10*3/uL 0.33-0.92 = 742-7) EOS x10^3 (test code = 0.38 10*3/uL 0.03-0.39 711-2) BASO x10^3 (test code 0.04 10*3/uL 0.01-0.07 = 704-7) Lab Interpretation Abnormal (test code = 34815-0) [facility] WITH [id number] 17:18:52 Test Item Value Reference Range Interpretation [...] RDW-SD (test code = 46.2 fL 39.0-49.9 25997-2) RDW-CV (test code = 17.9 % 12.0-15.5 H 788-0) PLT (test code = 304 See_Comment [Automated 777-3) message] The sy stem which generated this result transmitted reference range : 166 - 358 10*3/ ?L. The reference r kuldip was not used to interpret this result as normal/abnormal . MPV (test code = 11.0 fL 9.5-12.9 06088-6) NRBC/100 WBC (test 0.0 See_Comment [Automat ed code = 8706338094) message] The system which generated this result transmitted reference range : 0.0 - 10.0 /100 WBCs. The refer ence range was not u sed to interpret th is result as normal/abnormal . NRBC x10^3 (test code See_Comment [Auto mated = 2103386666) message] The s ystem which generated this result transmitted reference range : 10*3/?L. The reference range was not used to interpret this result as normal/abnormal . GRAN MAT (NEUT) % 68.6 % (test code = 770-8) IMM GRAN % (test code 0.70 % = 9590297691) LYMPH % (test code = 19.8 % 736-9) MONO % (test code = 5.3 % 5905-5) EOS % (test code = 5.1 % 713-8) BASO % (test code = 0.5 % 706-2) GRAN MAT x10^3(ANC) 5.08 10*3/uL 1.88-7.09 (test code = 0105400888) IMM GRAN x10^3 (test 0.05 10*3/uL 0.00-0.06 code = 6864319657) LYMPH x10^3 (test code 1.47 10*3/uL 1.32-3.29 = 731-0) MONO x10^3 (test code 0.39 10*3/uL 0.33-0.92 = 742-7) EOS x10^3 (test code = 0.38 10*3/uL 0.03-0.39 711-2) BASO x10^3 (test code 0.04 10*3/uL 0.01-0.07 = 704-7) Lab Interpretation Abnormal (test code = 57353-0) [facility] WITH [id number] 17:18:52 Test Item Value Reference Range Interpretation Comments WBC (test code = 7.41 See_Comment [Automated 0598-2) message] The sy stem which generated this [...] RDW-SD (test code = 46.2 fL 39.0-49.9 17709-3) RDW-CV (test code = 17.9 % 12.0-15.5 H 788-0) PLT (test code = 304 See_Comment [Automated 777-3) message] The sy stem which generated this result transmitted reference range : 166 - 358 10*3/ ?L. The reference r kuldip was not used to interpret this result as normal/abnormal . MPV (test code = 11.0 fL 9.5-12.9 41521-6) NRBC/100 WBC (test 0.0 See_Comment [Automat ed code = [id number]) message] The system which generated this result transmitted reference range : 0.0 - 10.0 /100 WBCs. The refer ence range was not u sed to interpret th is result as normal/abnormal . NRBC x10^3 (test code See_Comment [Auto mated = [id number]) message] The s ystem which generated this result transmitted reference range : 10*3/?L. The reference range was not used to interpret this result as normal/abnormal . GRAN MAT (NEUT) % 68.6 % (test code = 770-8) IMM GRAN % (test code 0.70 % = [id number]) LYMPH % (test code = 19.8 % 736-9) MONO % (test code = 5.3 % 5905-5) EOS % (test code = 5.1 % 713-8) BASO % (test code = 0.5 % 706-2) GRAN MAT x10^3(ANC) 5.08 10*3/uL 1.88-7.09 (test code = [id number]) IMM GRAN x10^3 (test 0.05 10*3/uL 0.00-0.06 code = [id number]) LYMPH x10^3 (test code 1.47 10*3/uL 1.32-3.29 = 731-0) MONO x10^3 (test code 0.39 10*3/uL 0.33-0.92 = 742-7) EOS x10^3 (test code = 0.38 10*3/uL 0.03-0.39 711-2) BASO x10^3 (test code 0.04 10*3/uL 0.01-0.07 = 704-7) Lab Interpretation Abnormal (test code = 56586-3) [facility] WITH [id number] 17:18:52 Test Item Value Reference Range Interpretation Comments WBC (test code = 7.41 See_Comment [Automated 0690-2) message] The sy stem which generated this result transmitted reference range : 4.30 - 11.10 10*3/?L. The reference range was not used to interpret this result as normal/abnormal . RBC (test code = 4.20 See_Comment [Automated 039-8) message] The sy stem which generated this [...] RDW-SD (test code = 46.2 fL 39.0-49.9 94698-9) RDW-CV (test code = 17.9 % 12.0-15.5 H 788-0) PLT (test code = 304 See_Comment [Automated 777-3) message] The sy stem which generated this result transmitted reference range : 166 - 358 10*3/ ?L. The reference r kuldip was not used to interpret this result as normal/abnormal . MPV (test code = 11.0 fL 9.5-12.9 04936-8) NRBC/100 WBC (test 0.0 See_Comment [Automat ed code = [id number]) message] The system which generated this result transmitted reference range : 0.0 - 10.0 /100 WBCs. The refer ence range was not u sed to interpret th is result as normal/abnormal . NRBC x10^3 (test code See_Comment [Auto mated = [id number]) message] The s ystem which generated this result transmitted reference range : 10*3/?L. The reference range was not used to interpret this result as normal/abnormal . GRAN MAT (NEUT) % 68.6 % (test code = 770-8) IMM GRAN % (test code 0.70 % = 3411768668) LYMPH % (test code = 19.8 % 736-9) MONO % (test code = 5.3 % 5905-5) EOS % (test code = 5.1 % 713-8) BASO % (test code = 0.5 % 706-2) GRAN MAT x10^3(ANC) 5.08 10*3/uL 1.88-7.09 (test code = 7599384843) IMM GRAN x10^3 (test 0.05 10*3/uL 0.00-0.06 code = 7876971233) LYMPH x10^3 (test code 1.47 10*3/uL 1.32-3.29 = 731-0) MONO x10^3 (test code 0.39 10*3/uL 0.33-0.92 = 742-7) EOS x10^3 (test code = 0.38 10*3/uL 0.03-0.39 711-2) BASO x10^3 (test code 0.04 10*3/uL 0.01-0.07 = 704-7) Lab Interpretation Abnormal (test code = 20723-3) [facility] WITH [id number] 17:18:52 Test Item Value Reference Range Interpretation [...] RDW-SD (test code = 46.2 fL 39.0-49.9 43124-6) RDW-CV (test code = 17.9 % 12.0-15.5 H 788-0) PLT (test code = 304 See_Comment [Automated 777-3) message] The sy stem which generated this result transmitted reference range : 166 - 358 10*3/ ?L. The reference r kuldip was not used to interpret this result as normal/abnormal . MPV (test code = 11.0 fL 9.5-12.9 63826-8) NRBC/100 WBC (test 0.0 See_Comment [Automat ed code = 0163582334) message] The system which generated this result transmitted reference range : 0.0 - 10.0 /100 WBCs. The refer ence range was not u sed to interpret th is result as normal/abnormal . NRBC x10^3 (test code See_Comment [Auto mated = [id number]) message] The s ystem which generated this result transmitted reference range : 10*3/?L. The reference range was not used to interpret this result as normal/abnormal . GRAN MAT (NEUT) % 68.6 % (test code = 770-8) IMM GRAN % (test code 0.70 % = 9503035521) LYMPH % (test code = 19.8 % 736-9) MONO % (test code = 5.3 % 5905-5) EOS % (test code = 5.1 % 713-8) BASO % (test code = 0.5 % 706-2) GRAN MAT x10^3(ANC) 5.08 10*3/uL 1.88-7.09 (test code = 0905892619) IMM GRAN x10^3 (test 0.05 10*3/uL 0.00-0.06 code = 1583122321) LYMPH x10^3 (test code 1.47 10*3/uL 1.32-3.29 = 731-0) MONO x10^3 (test code 0.39 10*3/uL 0.33-0.92 = 742-7) EOS x10^3 (test code = 0.38 10*3/uL 0.03-0.39 711-2) BASO x10^3 (test code 0.04 10*3/uL 0.01-0.07 = 704-7) Lab Interpretation Abnormal (test code = 26639-3) [facility] [id number] 16:24:00 Test Item Value Reference Range Interpretation Comments POCT PREG (test code = 1605) Negative On board controls acceptable with Yes C Line (test code = 3574) POCT PREG LOT # (test code = 3575) [id number] POCT PREG TEST DATE (test 04-11-2024 code = 3576) Lab Interpretation (test code = Normal 84076-0) [facility] [id number] 16:24:00 Test Item Value Reference Range Interpretation Comments POCT PREG (test code = 1605) Negative On board controls acceptable with Yes C Line (test code = 3574) POCT PREG LOT # (test code = 3575) [id number] POCT PREG TEST DATE (test 04-11-2024 code = 3576) Lab Interpretation (test code = Normal 93326-9) [facility] [id number] 16:24:00 Test Item Value Reference Range Interpretation Comments POCT PREG (test code = 1605) Negative On board controls acceptable with Yes C Line (test code = 3574) POCT PREG LOT # (test code = 3575) [id number] POCT PREG TEST DATE (test 04-11-2024 code = 3576) Lab Interpretation (test code = Normal 14061-1) [facility] [id number] 16:24:00 Test Item Value Reference Range Interpretation Comments POCT PREG (test code = 1605) Negative On board controls acceptable with Yes C Line (test code = 3574) POCT PREG LOT # (test code = 3575) [id number] POCT PREG TEST DATE (test 04-11-2024 code = 3576) Lab Interpretation (test code = Normal 99003-7) [facility] [id number] 16:24:00 Test Item Value Reference Range Interpretation Comments POCT PREG (test code = 1605) Negative On board controls acceptable with Yes C Line (test code = 3574) POCT PREG LOT # (test code = 3575) [id number] POCT PREG TEST DATE (test 04-11-2024 code = 3576) Lab Interpretation (test code = Normal 54279-1) [facility] [id number] 16:24:00 Test Item Value Reference Range Interpretation Comments POCT PREG (test code = 1605) Negative On board controls acceptable with Yes C Line (test code = 3574) POCT PREG LOT # (test code = 3575) [id number] POCT PREG TEST DATE (test 04-11-2024 code = 3576) Lab Interpretation (test code = Normal 71130-6) [facility] [id number] 16:24:00 Test Item Value Reference Range Interpretation Comments POCT PREG (test code = 1605) Negative On board controls acceptable with Yes C Line (test code = 3574) POCT PREG LOT # (test code = 3575) [id number] POCT PREG TEST DATE (test 04-11-2024 code = 3576) Lab Interpretation (test code = Normal 05204-2) [facility] [id number] 16:24:00 Test Item Value Reference Range Interpretation Comments POCT PREG (test code = 1605) Negative On board controls acceptable with Yes C Line (test code = 3574) POCT PREG LOT # (test code = 3575) [id number] POCT PREG TEST DATE (test 04-11-2024 code = 3576) Lab Interpretation (test code = Normal 62715-7) [facility] [id number] 16:24:00 Test Item Value Reference Range Interpretation Comments POCT PREG (test code = 1605) Negative On board controls acceptable with Yes C Line (test code = 3574) POCT PREG LOT # (test code = 3575) [id number] POCT PREG TEST DATE (test 04-11-2024 code = 3576) Lab Interpretation (test code = Normal 80379-8) [facility] [id number] 16:24:00 Test Item Value Reference Range Interpretation Comments POCT PREG (test code = 1605) Negative On board controls acceptable with Yes C Line (test code = 3574) POCT PREG LOT # (test code = 3575) [id number] POCT PREG TEST DATE (test 04-11-2024 code = 3576) Lab Interpretation (test code = Normal 36721-1) [facility] [id number] 16:24:00 Test Item Value Reference Range Interpretation Comments POCT PREG (test code = 1605) Negative On board controls acceptable with Yes C Line (test code = 3574) POCT PREG LOT # (test code = 3575) [id number] POCT PREG TEST DATE (test 04-11-2024 code = 3576) Lab Interpretation (test code = Normal 45874-2) [facility] [id number] 16:24:00 Test Item Value Reference Range Interpretation Comments POCT PREG (test code = 1605) Negative On board controls acceptable with Yes C Line (test code = 3574) POCT PREG LOT # (test code = 3575) [id number] POCT PREG TEST DATE (test 04-11-2024 code = 3576) Lab Interpretation (test code = Normal 52663-2) [facility] ONLY CELIAC SCREEN [id number] 19:09:14 Test Item Value Reference Range Interpretation Comments Tissue Transglutaminase Negative Negative (tTG) Ab, IgA Interpretation (test code = 49860-4) Deamidated Gliadin Peptide Negative Negative (DGP) Ab, IgA Interpretation (test code = 04020-1) Tissue Transglutaminase <=7.0 (tTG) Ab, IgA (test code = 0540904180) Deamidated Gliadin Peptide 0.4 U/mL <=7.0 (DGP) Ab, IgA (test code = 3606145164) ZAINAB (test code = ZAINAB) < 7 U/mL ? Negative7 - 10 U/mL ?Equivocal> 10 U/mL ?Positive In case of equivocal results, we recommend to retest the patient after 8 -12 weeks. Lab Interpretation (test Normal code = 85537-0) [facility] ONLY CELIAC SCREEN [id number] 19:09:14 Test Item Value Reference Range Interpretation Comments Tissue Transglutaminase Negative Negative (tTG) Ab, IgA Interpretation (test code = 32579-3) Deamidated Gliadin Peptide Negative Negative (DGP) Ab, IgA Interpretation (test code = 99428-0) Tissue Transglutaminase <=7.0 (tTG) Ab, IgA (test code = 4130165936) Deamidated Gliadin Peptide 0.4 U/mL <=7.0 (DGP) Ab, IgA (test code = 7851880825) ZAINAB (test code = ZAINAB) < 7 U/mL ? Negative7 - 10 U/mL ?Equivocal> 10 U/mL ?Positive In case of equivocal results, we recommend to retest the patient after 8 -12 weeks. Lab Interpretation (test Normal code = 87374-6) [facility] ONLY CELIAC SCREEN [id number] 19:09:14 Test Item Value Reference Range Interpretation Comments Tissue Transglutaminase Negative Negative (tTG) Ab, IgA Interpretation (test code = 71625-3) Deamidated Gliadin Peptide Negative Negative (DGP) Ab, IgA Interpretation (test code = 99594-9) Tissue Transglutaminase <=7.0 (tTG) Ab, IgA (test code = 9143503877) Deamidated Gliadin Peptide 0.4 U/mL <=7.0 (DGP) Ab, IgA (test code = 2807107794) ZAINAB (test code = ZAINAB) < 7 U/mL ? Negative7 - 10 U/mL ?Equivocal> 10 U/mL ?Positive In case of equivocal results, we recommend to retest the patient after 8 -12 weeks. Lab Interpretation (test Normal code = 63673-1) [facility] ONLY CELIAC SCREEN [id number] 19:09:14 Test Item Value Reference Range Interpretation Comments Tissue Transglutaminase Negative Negative (tTG) Ab, IgA Interpretation (test code = 04886-4) Deamidated Gliadin Peptide Negative Negative (DGP) Ab, IgA Interpretation (test code = 94835-9) Tissue Transglutaminase <=7.0 (tTG) Ab, IgA (test code = 5588762273) Deamidated Gliadin Peptide 0.4 U/mL <=7.0 (DGP) Ab, IgA (test code = 8600984705) ZAINAB (test code = ZAINAB) < 7 U/mL ? Negative7 - 10 U/mL ?Equivocal> 10 U/mL ?Positive In case of equivocal results, we recommend to retest the patient after 8 -12 weeks. Lab Interpretation (test Normal code = 34766-1) [facility] ONLY CELIAC SCREEN [id number] 19:09:14 Test Item Value Reference Range Interpretation Comments Tissue Transglutaminase Negative Negative (tTG) Ab, IgA Interpretation (test code = 08077-9) Deamidated Gliadin Peptide Negative Negative (DGP) Ab, IgA Interpretation (test code = 02893-0) Tissue Transglutaminase <=7.0 (tTG) Ab, IgA (test code = 6359963764) Deamidated Gliadin Peptide 0.4 U/mL <=7.0 (DGP) Ab, IgA (test code = 9573669203) ZAINAB (test code = ZAINAB) < 7 U/mL ? Negative7 - 10 U/mL ?Equivocal> 10 U/mL ?Positive In case of equivocal results, we recommend to retest the patient after 8 -12 weeks. Lab Interpretation (test Normal code = 89031-5) [facility] ONLY CELIAC SCREEN [id number] 19:09:14 Test Item Value Reference Range Interpretation Comments Tissue Transglutaminase Negative Negative (tTG) Ab, IgA Interpretation (test code = 90419-1) Deamidated Gliadin Peptide Negative Negative (DGP) Ab, IgA Interpretation (test code = 72938-4) Tissue Transglutaminase <=7.0 (tTG) Ab, IgA (test code = 4613449747) Deamidated Gliadin Peptide 0.4 U/mL <=7.0 (DGP) Ab, IgA (test code = 4994265495) ZAINAB (test code = ZAINAB) < 7 U/mL ? Negative7 - 10 U/mL ?Equivocal> 10 U/mL ?Positive In case of equivocal results, we recommend to retest the patient after 8 -12 weeks. Lab Interpretation (test Normal code = 55060-5) [facility] ONLY CELIAC SCREEN [id number] 19:09:14 Test Item Value Reference Range Interpretation Comments Tissue Transglutaminase Negative Negative (tTG) Ab, IgA Interpretation (test code = 74550-2) Deamidated Gliadin Peptide Negative Negative (DGP) Ab, IgA Interpretation (test code = 29024-2) Tissue Transglutaminase <=7.0 (tTG) Ab, IgA (test code = 2339238249) Deamidated Gliadin Peptide 0.4 U/mL <=7.0 (DGP) Ab, IgA (test code = 8478627812) ZAINAB (test code = ZAINAB) < 7 U/mL ? Negative7 - 10 U/mL ?Equivocal> 10 U/mL ?Positive In case of equivocal results, we recommend to retest the patient after 8 -12 weeks. Lab Interpretation (test Normal code = 61573-6) [facility] ONLY CELIAC SCREEN [id number] 19:09:14 Test Item Value Reference Range Interpretation Comments Tissue Transglutaminase Negative Negative (tTG) Ab, IgA Interpretation (test code = 00874-9) Deamidated Gliadin Peptide Negative Negative (DGP) Ab, IgA Interpretation (test code = 48916-8) Tissue Transglutaminase <=7.0 (tTG) Ab, IgA (test code = 5157088173) Deamidated Gliadin Peptide 0.4 U/mL <=7.0 (DGP) Ab, IgA (test code = 5084499681) ZAINAB (test code = ZAINAB) < 7 U/mL ? Negative7 - 10 U/mL ?Equivocal> 10 U/mL ?Positive In case of equivocal results, we recommend to retest the patient after 8 -12 weeks. Lab Interpretation (test Normal code = 30653-3) [facility] ONLY CELIAC SCREEN [id number] 19:09:14 Test Item Value Reference Range Interpretation Comments Tissue Transglutaminase Negative Negative (tTG) Ab, IgA Interpretation (test code = 36032-6) Deamidated Gliadin Peptide Negative Negative (DGP) Ab, IgA Interpretation (test code = 02787-9) Tissue Transglutaminase <=7.0 (tTG) Ab, IgA (test code = 0631346257) Deamidated Gliadin Peptide 0.4 U/mL <=7.0 (DGP) Ab, IgA (test code = 6832808433) ZAINAB (test code = ZAINAB) < 7 U/mL ? Negative7 - 10 U/mL ?Equivocal> 10 U/mL ?Positive In case of equivocal results, we recommend to retest the patient after 8 -12 weeks. Lab Interpretation (test Normal code = 95372-9) [facility] ONLY CELIAC SCREEN [id number] 19:09:14 Test Item Value Reference Range Interpretation Comments Tissue Transglutaminase Negative Negative (tTG) Ab, IgA Interpretation (test code = 44498-9) Deamidated Gliadin Peptide Negative Negative (DGP) Ab, IgA Interpretation (test code = 11809-9) Tissue Transglutaminase <=7.0 (tTG) Ab, IgA (test code = 0096474922) Deamidated Gliadin Peptide 0.4 U/mL <=7.0 (DGP) Ab, IgA (test code = 8564485684) ZAINAB (test code = ZAINAB) < 7 U/mL ? Negative7 - 10 U/mL ?Equivocal> 10 U/mL ?Positive In case of equivocal results, we recommend to retest the patient after 8 -12 weeks. Lab Interpretation (test Normal code = 09097-3) [facility] ONLY CELIAC SCREEN [id number] 19:09:14 Test Item Value Reference Range Interpretation Comments Tissue Transglutaminase Negative Negative (tTG) Ab, IgA Interpretation (test code = 65786-7) Deamidated Gliadin Peptide Negative Negative (DGP) Ab, IgA Interpretation (test code = 09149-8) Tissue Transglutaminase <=7.0 (tTG) Ab, IgA (test code = 0412383041) Deamidated Gliadin Peptide 0.4 U/mL <=7.0 (DGP) Ab, IgA (test code = 8791851696) ZAINAB (test code = ZAINAB) < 7 U/mL ? Negative7 - 10 U/mL ?Equivocal> 10 U/mL ?Positive In case of equivocal results, we recommend to retest the patient after 8 -12 weeks. Lab Interpretation (test Normal code = 22370-6) [facility] ONLY CELIAC SCREEN [id number] 19:09:14 Test Item Value Reference Range Interpretation Comments Tissue Transglutaminase Negative Negative (tTG) Ab, IgA Interpretation (test code = 90762-7) Deamidated Gliadin Peptide Negative Negative (DGP) Ab, IgA Interpretation (test code = 31657-8) Tissue Transglutaminase <=7.0 (tTG) Ab, IgA (test code = 0636795718) Deamidated Gliadin Peptide 0.4 U/mL <=7.0 (DGP) Ab, IgA (test code = 3626535897) ZAINAB (test code = ZAINAB) < 7 U/mL ? Negative7 - 10 U/mL ?Equivocal> 10 U/mL ?Positive In case of equivocal results, we recommend to retest the patient after 8 -12 weeks. Lab Interpretation (test Normal code = 12680-0) [facility] [id number] 20:24:44 Test Item Value Reference Range Interpretation Comments Total IgA (test code = 2448555975) 78.3 U/mL 70-312 Lab Interpretation (test code = Normal 80792-8) [facility]2023-09-07 20:24:44 Test Item Value Reference Range Interpretation Comments Total IgA (test code = 2604534988) 78.3 U/mL 70-312 Lab Interpretation (test code = Normal 49735-3) [facility]2023-09-07 20:24:44 Test Item Value Reference Range Interpretation Comments Total IgA (test code = 5272275309) 78.3 U/mL 70-312 Lab Interpretation (test code = Normal 13097-6) [facility]2023-09-07 20:24:44 Test Item Value Reference Range Interpretation Comments Total IgA (test code = 0031271686) 78.3 U/mL 70-312 Lab Interpretation (test code = Normal 48951-8) [facility]2023-09-07 20:24:44 Test Item Value Reference Range Interpretation Comments Total IgA (test code = 1775255222) 78.3 U/mL 70-312 Lab Interpretation (test code = Normal 79194-9) [facility]2023-09-07 20:24:44 Test Item Value Reference Range Interpretation Comments Total IgA (test code = 8749448455) 78.3 U/mL 70-312 Lab Interpretation (test code = Normal 22172-9) [facility]2023-09-07 20:24:44 Test Item Value Reference Range Interpretation Comments Total IgA (test code = 1115576850) 78.3 U/mL 70-312 Lab Interpretation (test code = Normal 87666-4) [facility]2023-09-07 20:24:44 Test Item Value Reference Range Interpretation Comments Total IgA (test code = 5767331283) 78.3 U/mL 70-312 Lab Interpretation (test code = Normal 43301-8) [facility]2023-09-07 20:24:44 Test Item Value Reference Range Interpretation Comments Total IgA (test code = 6757629671) 78.3 U/mL 70-312 Lab Interpretation (test code = Normal 39384-8) [facility] [id number] 20:24:44 Test Item Value Reference Range Interpretation Comments Total IgA (test code = 3508025753) 78.3 U/mL 70-312 Lab Interpretation (test code = Normal 54714-3) [facility] [id number] 20:24:44 Test Item Value Reference Range Interpretation Comments Total IgA (test code = 6377618985) 78.3 U/mL 70-312 Lab Interpretation (test code = Normal 11285-1) [facility] [id number] 20:24:44 Test Item Value Reference Range Interpretation Comments Total IgA (test code = 6481683929) 78.3 U/mL 70-312 Lab Interpretation (test code = Normal 98344-5) [facility] [id number] 17:30:19 Test Item Value Reference Range Interpretation Comments FERRITIN (test code = 4.8 ng/mL 6.0-137.0 L 9412852330) ZAINAB (test code = ZAINAB) Biotin has been reported to cause a negative bias, interpret results relative to patient's use of biotin. Lab Interpretation (test Abnormal code = 34918-1) [facility] [id number] 17:30:19 Test Item Value Reference Range Interpretation Comments FERRITIN (test code = 4.8 ng/mL 6.0-137.0 L 6740629451) ZAINAB (test code = ZAINAB) Biotin has been reported to cause a negative bias, interpret results relative to patient's use of biotin. Lab Interpretation (test Abnormal code = 47600-2) [facility] [id number] 17:30:19 Test Item Value Reference Range Interpretation Comments FERRITIN (test code = 4.8 ng/mL 6.0-137.0 L 7695112159) ZAINAB (test code = ZAINAB) Biotin has been reported to cause a negative bias, interpret results relative to patient's use of biotin. Lab Interpretation (test Abnormal code = 62880-8) [facility] [id number] 17:30:19 Test Item Value Reference Range Interpretation Comments FERRITIN (test code = 4.8 ng/mL 6.0-137.0 L 3594781564) ZAINAB (test code = ZAINAB) Biotin has been reported to cause a negative bias, interpret results relative to patient's use of biotin. Lab Interpretation (test Abnormal code = 32869-1) [facility]2023-09-07 17:30:19 Test Item Value Reference Range Interpretation Comments FERRITIN (test code = 4.8 ng/mL 6.0-137.0 L 4538839801) ZAINAB (test code = ZAINAB) Biotin has been reported to cause a negative bias, interpret results relative to patient's use of biotin. Lab Interpretation (test Abnormal code = 29860-1) [facility]2023-09-07 17:30:19 Test Item Value Reference Range Interpretation Comments FERRITIN (test code = 4.8 ng/mL 6.0-137.0 L 2641503227) ZAINAB (test code = ZAINAB) Biotin has been reported to cause a negative bias, interpret results relative to patient's use of biotin. Lab Interpretation (test Abnormal code = 90752-0) [facility]2023-09-07 17:30:19 Test Item Value Reference Range Interpretation Comments FERRITIN (test code = 4.8 ng/mL 6.0-137.0 L 0678357130) ZAINAB (test code = ZAINAB) Biotin has been reported to cause a negative bias, interpret results relative to patient's use of biotin. Lab Interpretation (test Abnormal code = 77877-1) [facility]2023-09-07 17:30:19 Test Item Value Reference Range Interpretation Comments FERRITIN (test code = 4.8 ng/mL 6.0-137.0 L 0591390018) ZAINAB (test code = ZAINAB) Biotin has been reported to cause a negative bias, interpret results relative to patient's use of biotin. Lab Interpretation (test Abnormal code = 04296-6) [facility]2023-09-07 17:30:19 Test Item Value Reference Range Interpretation Comments FERRITIN (test code = 4.8 ng/mL 6.0-137.0 L 8833517083) ZAINAB (test code = ZAINAB) Biotin has been reported to cause a negative bias, interpret results relative to patient's use of biotin. Lab Interpretation (test Abnormal code = 68322-9) [facility] [id number] 17:30:19 Test Item Value Reference Range Interpretation Comments FERRITIN (test code = 4.8 ng/mL 6.0-137.0 L 3344417093) ZAINAB (test code = ZAINAB) Biotin has been reported to cause a negative bias, interpret results relative to patient's use of biotin. Lab Interpretation (test Abnormal code = 48665-9) [facility] [id number] 17:30:19 Test Item Value Reference Range Interpretation Comments FERRITIN (test code = 4.8 ng/mL 6.0-137.0 L 6667557495) ZAINAB (test code = ZAINAB) Biotin has been reported to cause a negative bias, interpret results relative to patient's use of biotin. Lab Interpretation (test Abnormal code = 80383-5) [facility] [id number] 17:30:19 Test Item Value Reference Range Interpretation Comments FERRITIN (test code = 4.8 ng/mL 6.0-137.0 L 6525862622) ZAINAB (test code = ZAINAB) Biotin has been reported to cause a negative bias, interpret results relative to patient's use of biotin. Lab Interpretation (test Abnormal code = 30813-2) [facility] [id number] 17:03:34 Test Item Value Reference Range Interpretation Comments IRON (test code = 0027498557) 34 ug/dL 50-160 L TIBC (test code = 1174110251) 515 ug/dL 250-410 H % FE SAT (test code = 7901761384) 7 % 20-50 L Lab Interpretation (test code = Abnormal 98027-7) [facility] [id number] 17:03:34 Test Item Value Reference Range Interpretation Comments IRON (test code = 5843802087) 34 ug/dL 50-160 L TIBC (test code = 2350764410) 515 ug/dL 250-410 H % FE SAT (test code = 6703114683) 7 % 20-50 L Lab Interpretation (test code = Abnormal 04897-4) [facility]2023-09-07 17:03:34 Test Item Value Reference Range Interpretation Comments IRON (test code = 5364164400) 34 ug/dL 50-160 L TIBC (test code = 9023015639) 515 ug/dL 250-410 H % FE SAT (test code = 8391578446) 7 % 20-50 L Lab Interpretation (test code = Abnormal 56637-0) [facility] [id number] 17:03:34 Test Item Value Reference Range Interpretation Comments IRON (test code = 1780236193) 34 ug/dL 50-160 L TIBC (test code = 3075351379) 515 ug/dL 250-410 H % FE SAT (test code = 7497281342) 7 % 20-50 L Lab Interpretation (test code = Abnormal 66727-4) [facility]2023-09-07 17:03:34 Test Item Value Reference Range Interpretation Comments IRON (test code = 1303770183) 34 ug/dL 50-160 L TIBC (test code = 3192154589) 515 ug/dL 250-410 H % FE SAT (test code = 2532275924) 7 % 20-50 L Lab Interpretation (test code = Abnormal 02812-5) [facility] [id number] 17:03:34 Test Item Value Reference Range Interpretation Comments IRON (test code = 3340500461) 34 ug/dL 50-160 L TIBC (test code = 7247549425) 515 ug/dL 250-410 H % FE SAT (test code = 6201804374) 7 % 20-50 L Lab Interpretation (test code = Abnormal 50238-0) [facility] [id number] 17:03:34 Test Item Value Reference Range Interpretation Comments IRON (test code = 1536301225) 34 ug/dL 50-160 L TIBC (test code = 6492474261) 515 ug/dL 250-410 H % FE SAT (test code = 0093080305) 7 % 20-50 L Lab Interpretation (test code = Abnormal 35639-7) [facility] [id number] 17:03:34 Test Item Value Reference Range Interpretation Comments IRON (test code = 5186074259) 34 ug/dL 50-160 L TIBC (test code = 3082210449) 515 ug/dL 250-410 H % FE SAT (test code = 9356860218) 7 % 20-50 L Lab Interpretation (test code = Abnormal 91851-4) [facility]2023-09-07 17:03:34 Test Item Value Reference Range Interpretation Comments IRON (test code = 2418058726) 34 ug/dL 50-160 L TIBC (test code = 9245165868) 515 ug/dL 250-410 H % FE SAT (test code = 9252729759) 7 % 20-50 L Lab Interpretation (test code = Abnormal 20104-1) [facility]2023-09-07 17:03:34 Test Item Value Reference Range Interpretation Comments IRON (test code = 2031501895) 34 ug/dL 50-160 L TIBC (test code = 1185807601) 515 ug/dL 250-410 H % FE SAT (test code = 3431624083) 7 % 20-50 L Lab Interpretation (test code = Abnormal 67277-4) [facility]2023-09-07 17:03:34 Test Item Value Reference Range Interpretation Comments IRON (test code = 7662145488) 34 ug/dL 50-160 L TIBC (test code = 2263952295) 515 ug/dL 250-410 H % FE SAT (test code = 0028579110) 7 % 20-50 L Lab Interpretation (test code = Abnormal 11916-0) [facility]2023-09-07 17:03:34 Test Item Value Reference Range Interpretation Comments IRON (test code = 3122616799) 34 ug/dL 50-160 L TIBC (test code = 1744401416) 515 ug/dL 250-410 H % FE SAT (test code = 2721759859) 7 % 20-50 L Lab Interpretation (test code = Abnormal 33263-3) [facility]2023-08-24 19:48:06 Test Item Value Reference Range Interpretation Comments [place] (test code = 0.5 mmol/L 0.6-1.2 L 6622075109) ZAINAB (test code = ZAINAB) Toxic Range: ? Greater than 1.2 mmol/L Lab Interpretation (test Abnormal code = 25813-5) [facility]2023-08-24 19:48:06 Test Item Value Reference Range Interpretation Comments [place] (test code = 0.5 mmol/L 0.6-1.2 L 5251973163) ZAINAB (test code = ZAINAB) Toxic Range: ? Greater than 1.2 mmol/L Lab Interpretation (test Abnormal code = 85572-1) [facility]2023-08-24 19:48:06 Test Item Value Reference Range Interpretation Comments [place] (test code = 0.5 mmol/L 0.6-1.2 L 3351651671) ZAINAB (test code = ZAINAB) Toxic Range: ? Greater than 1.2 mmol/L Lab Interpretation (test Abnormal code = 16203-2) [facility]2023-08-24 19:48:06 Test Item Value Reference Range Interpretation Comments [place] (test code = 0.5 mmol/L 0.6-1.2 L 9365100242) ZAINAB (test code = ZAINAB) Toxic Range: ? Greater than 1.2 mmol/L Lab Interpretation (test Abnormal code = 45687-4) [facility]2023-08-24 19:48:06 Test Item Value Reference Range Interpretation Comments [place] (test code = 0.5 mmol/L 0.6-1.2 L 4229890634) ZAINAB (test code = ZAINAB) Toxic Range: ? Greater than 1.2 mmol/L Lab Interpretation (test Abnormal code = 54324-7) [facility]2023-08-24 19:48:06 Test Item Value Reference Range Interpretation Comments [place] (test code = 0.5 mmol/L 0.6-1.2 L 0867238053) ZAINAB (test code = ZAINAB) Toxic Range: ? Greater than 1.2 mmol/L Lab Interpretation (test Abnormal code = 52118-4) [facility]2023-08-24 19:48:06 Test Item Value Reference Range Interpretation Comments [place] (test code = 0.5 mmol/L 0.6-1.2 L 6753429859) ZAINAB (test code = ZAINAB) Toxic Range: ? Greater than 1.2 mmol/L Lab Interpretation (test Abnormal code = 78149-4) [facility]2023-08-24 19:48:06 Test Item Value Reference Range Interpretation Comments [place] (test code = 0.5 mmol/L 0.6-1.2 L 7185518955) ZAINAB (test code = ZAINAB) Toxic Range: ? Greater than 1.2 mmol/L Lab Interpretation (test Abnormal code = 11231-3) [facility]2023-08-24 19:48:06 Test Item Value Reference Range Interpretation Comments [place] (test code = 0.5 mmol/L 0.6-1.2 L 8011537813) ZAINAB (test code = ZAINAB) Toxic Range: ? Greater than 1.2 mmol/L Lab Interpretation (test Abnormal code = 15968-6) [facility]2023-08-24 19:48:06 Test Item Value Reference Range Interpretation Comments [place] (test code = 0.5 mmol/L 0.6-1.2 L 8458549845) ZAINAB (test code = ZAINAB) Toxic Range: ? Greater than 1.2 mmol/L Lab Interpretation (test Abnormal code = 94093-1) [facility]2023-08-24 19:48:06 Test Item Value Reference Range Interpretation Comments [place] (test code = 0.5 mmol/L 0.6-1.2 L 2880025496) ZAINAB (test code = ZAINAB) Toxic Range: ? Greater than 1.2 mmol/L Lab Interpretation (test Abnormal code = 49146-6) [facility]2023-08-24 19:48:06 Test Item Value Reference Range Interpretation Comments [place] (test code = 0.5 mmol/L 0.6-1.2 L 1242602792) ZAINAB (test code = ZAINAB) Toxic Range: ? Greater than 1.2 mmol/L Lab Interpretation (test Abnormal code = 12926-8) [facility]2023-08-24 19:48:06 Test Item Value Reference Range Interpretation Comments [place] (test code = 0.5 mmol/L 0.6-1.2 L 3754598280) ZAINAB (test code = ZAINAB) Toxic Range: ? Greater than 1.2 mmol/L Lab Interpretation (test Abnormal code = 11725-0) [facility]2023-08-24 19:48:06 Test Item Value Reference Range Interpretation Comments [place] (test code = 0.5 mmol/L 0.6-1.2 L 9213297812) ZAINAB (test code = ZAINAB) Toxic Range: ? Greater than 1.2 mmol/L Lab Interpretation (test Abnormal code = 09749-7) [facility] [id number] 17:24:34 Test Item Value Reference Range Interpretation Comments TSH (test code = 1.07 See_Comment [Automated message] [id number]) The system [employer] generated this result transmitted ref erence range: 0.45 - 4 .70 mIU/L. The refe rence range was not u sed to interpret this result as normal/abnor mal. Lab Interpretation (test Normal code = 42909-7) [facility] [id number] 17:24:34 Test Item Value Reference Range Interpretation Comments TSH (test code = 1.07 See_Comment [Automated message] [id number]) The system [employer] generated this result transmitted ref erence range: 0.45 - 4 .70 mIU/L. The refe rence range was not u sed to interpret this result as normal/abnor mal. Lab Interpretation (test Normal code = 71408-3) [facility] [id number] 17:24:34 Test Item Value Reference Range Interpretation Comments TSH (test code = 1.07 See_Comment [Automated message] [id number]) The system [employer] generated this result transmitted ref erence range: 0.45 - 4 .70 mIU/L. The refe rence range was not u sed to interpret this result as normal/abnor mal. Lab Interpretation (test Normal code = 51379-7) [facility] [id number] 17:24:34 Test Item Value Reference Range Interpretation Comments TSH (test code = 1.07 See_Comment [Automated message] [id number]) The system [employer] generated this result transmitted ref erence range: 0.45 - 4 .70 mIU/L. The refe rence range was not u sed to interpret this result as normal/abnor mal. Lab Interpretation (test Normal code = 28134-7) [facility] [id number] 17:24:34 Test Item Value Reference Range Interpretation Comments TSH (test code = 1.07 See_Comment [Automated message] [id number]) The system [employer] generated this result transmitted ref erence range: 0.45 - 4 .70 mIU/L. The refe rence range was not u sed to interpret this result as normal/abnor mal. Lab Interpretation (test Normal code = 01190-0) [facility] [id number] 17:24:34 Test Item Value Reference Range Interpretation Comments TSH (test code = 1.07 See_Comment [Automated message] [id number]) The system [employer] generated this result transmitted ref erence range: 0.45 - 4 .70 mIU/L. The refe rence range was not u sed to interpret this result as normal/abnor mal. Lab Interpretation (test Normal code = 59310-5) [facility] [id number] 17:24:34 Test Item Value Reference Range Interpretation Comments TSH (test code = 1.07 See_Comment [Automated message] [id number]) The system [employer] generated this result transmitted ref erence range: 0.45 - 4 .70 mIU/L. The refe rence range was not u sed to interpret this result as normal/abnor mal. Lab Interpretation (test Normal code = 31962-9) [facility] [id number] 17:24:34 Test Item Value Reference Range Interpretation Comments TSH (test code = 1.07 See_Comment [Automated message] [id number]) The system [employer] generated this result transmitted ref erence range: 0.45 - 4 .70 mIU/L. The refe rence range was not u sed to interpret this result as normal/abnor mal. Lab Interpretation (test Normal code = 32175-2) [facility] [id number] 17:24:34 Test Item Value Reference Range Interpretation Comments TSH (test code = 1.07 See_Comment [Automated message] [id number]) The system [employer] generated this result transmitted ref erence range: 0.45 - 4 .70 mIU/L. The refe rence range was not u sed to interpret this result as normal/abnor mal. Lab Interpretation (test Normal code = 29488-6) [facility] [id number] 17:24:34 Test Item Value Reference Range Interpretation Comments TSH (test code = 1.07 See_Comment [Automated message] [id number]) The system [employer] generated this result transmitted ref erence range: 0.45 - 4 .70 mIU/L. The refe rence range was not u sed to interpret this result as normal/abnor mal. Lab Interpretation (test Normal code = 21927-9) [facility] [id number] 17:24:34 Test Item Value Reference Range Interpretation Comments TSH (test code = 1.07 See_Comment [Automated message] [id number]) The system [employer] generated this result transmitted ref erence range: 0.45 - 4 .70 mIU/L. The refe rence range was not u sed to interpret this result as normal/abnor mal. Lab Interpretation (test Normal code = 74252-8) [facility] [id number] 17:24:34 Test Item Value Reference Range Interpretation Comments TSH (test code = 1.07 See_Comment [Automated message] [id number]) The system [employer] generated this result transmitted ref erence range: 0.45 - 4 .70 mIU/L. The refe rence range was not u sed to interpret this result as normal/abnor mal. Lab Interpretation (test Normal code = 96928-1) [facility] [id number] 17:24:34 Test Item Value Reference Range Interpretation Comments TSH (test code = 1.07 See_Comment [Automated message] [id number]) The system [employer] generated this result transmitted ref erence range: 0.45 - 4 .70 mIU/L. The refe rence range was not u sed to interpret this result as normal/abnor mal. Lab Interpretation (test Normal code = 05364-0) [facility] [id number] 17:24:34 Test Item Value Reference Range Interpretation Comments TSH (test code = 1.07 See_Comment [Automated message] [id number]) The system [employer] Messenger generated this result transmitted ref erence range: 0.45 - 4 .70 mIU/L. The refe rence range was not u sed to interpret this result as normal/abnor mal. Lab Interpretation (test Normal code = 24569-6) [facility]. METABOLIC PANEL ([id number])2022-10-05 16:54:48 Test Item Value Reference Range Interpretation Comments NA (test code = 140 mmol/L 135-145 5565281595) K (test code = 4.6 mmol/L 3.5-5.0 2194708414) CL (test code = 106 mmol/L 98-108 5004756805) CO2 TOTAL (test code = 28 mmol/L 23-31 7211953256) AGAP (test code = 6 2-16 5052861311) BUN (test code = 5 mg/dL 7-23 L 8664283839) GLUCOSE (test code = 90 mg/dL 70-110 6223429827) CREATININE (test code = 0.54 mg/dL 0.50-1.04 1942527254) TOTAL BILI (test code = 0.1 mg/dL 0.1-1.0 0381251341) CALCIUM (test code = 9.6 mg/dL 8.6-10.6 7126692867) T PROTEIN (test code = 6.2 g/dL 6.3-8.2 L 2469014226) ALBUMIN (test code = 4.0 g/dL 3.5-5.0 9334885532) ALK PHOS (test code = 125 U/L 34-122 H 0965250183) ALTv (test code = 29 U/L 5-35 1742-6) AST(SGOT) (test code = 24 U/L 13-40 6591280573) eGFR (test code = 122.1 mL/min/1.73m2 4990488677) ZAINAB (test code = ZAINAB) Association of [...] tests). Lab Interpretation Abnormal (test code = 24503-5) [facility] (17517)(TOTAL CHOLESTEROL, TRIGLYCERIDES, HDL)2022-10-05 16:54:48 Test Item Value Reference Range Interpretation Comments CHOL (test code = 3248236712) 183 mg/dL 120-200 HDL (test code = 8730392667) 40 mg/dL >=50 L HDLC RATIO (test code = 2714606650) 4.6 <=4.5 H TRIG (test code = 9698654940) 128 mg/dL 30-170 LDL CHOL (test code = 15659-7) 117 mg/dL <=160 VLDL (test code = 2951237404) 26 mg/dL 5-60 Lab Interpretation (test code = Abnormal 50119-0) [facility] (15762)2022-10-05 16:54:48 Test Item Value Reference Range Interpretation Comments NA (test code = 140 mmol/L 135-145 8583349900) K (test code = 4.6 mmol/L 3.5-5.0 7870472482) CL (test code = 106 mmol/L 98-108 6478004769) CO2 TOTAL (test code = 28 mmol/L 23-31 6830763459) AGAP (test code = 6 2-16 8103652164) BUN (test code = 5 mg/dL 7-23 L 3596483328) GLUCOSE (test code = 90 mg/dL 70-110 4569899675) CREATININE (test code = 0.54 mg/dL 0.50-1.04 7854719546) TOTAL BILI (test code = 0.1 mg/dL 0.1-1.5 4617524148) CALCIUM (test code = 9.6 mg/dL 8.6-10.6 3703114711) T PROTEIN (test code = 6.2 g/dL 6.3-8.2 L 8792951634) ALBUMIN (test code = 4.0 g/dL 3.5-5.0 8934643611) ALK PHOS (test code = 125 U/L 34-122 H 9590184768) ALTv (test code = 29 U/L 5-35 2-6) AST(SGOT) (test code = 24 U/L 13-40 4546922816) eGFR (test code = 122.1 mL/min/1.73m2 9297852728) ZAINAB (test code = ZAINAB) Association of [...] tests). Lab Interpretation Abnormal (test code = 45359-8) [facility] (50781)(TOTAL CHOLESTEROL, TRIGLYCERIDES, HDL)2022-10-05 16:54:48 Test Item Value Reference Range Interpretation Comments CHOL (test code = 9538414551) 183 mg/dL 120-200 HDL (test code = 0663006931) 40 mg/dL >=50 L HDLC RATIO (test code = 6520210713) 4.6 <=4.5 H TRIG (test code = 8819093419) 128 mg/dL 30-170 LDL CHOL (test code = 98388-4) 117 mg/dL <=160 VLDL (test code = 0494110027) 26 mg/dL 5-60 Lab Interpretation (test code = Abnormal 96168-5) [facility] (81488)2022-10-05 16:54:48 Test Item Value Reference Range Interpretation Comments NA (test code = 140 mmol/L 135-145 5020769998) K (test code = 4.6 mmol/L 3.5-5.0 5366696502) CL (test code = 106 mmol/L 98-108 4307389249) CO2 TOTAL (test code = 28 mmol/L 23-31 6979450343) AGAP (test code = 6 2-16 0992319009) BUN (test code = 5 mg/dL 7-23 L 4418715009) GLUCOSE (test code = 90 mg/dL 70-110 8516172139) CREATININE (test code = 0.54 mg/dL 0.50-1.04 4895128851) TOTAL BILI (test code = 0.1 mg/dL 0.1-1.2 5406125256) CALCIUM (test code = 9.6 mg/dL 8.6-10.6 6779640838) T PROTEIN (test code = 6.2 g/dL 6.3-8.2 L 2239257202) ALBUMIN (test code = 4.0 g/dL 3.5-5.0 5738895139) ALK PHOS (test code = 125 U/L 34-122 H 8716984378) ALTv (test code = 29 U/L 535 1742-6) AST(SGOT) (test code = 24 U/L 13-40 1475357925) eGFR (test code = 122.1 mL/min/1.73m2 6473646992) ZAINAB (test code = ZAINAB) Association of [...] tests). Lab Interpretation Abnormal (test code = 97182-2) [facility]94671[facility]TOTAL CHOLESTEROL, TRIGLYCERIDES, HDL)2022-10-05 16:54:48 Test Item Value Reference Range Interpretation Comments CHOL (test code = 7892310985) 183 mg/dL 120-200 HDL (test code = 8365433776) 40 mg/dL >=50 L HDLC RATIO (test code = 1875530514) 4.6 <=4.5 H TRIG (test code = 6025170527) 128 mg/dL 30-170 LDL CHOL (test code = 61827-9) 117 mg/dL <=160 VLDL (test code = 0569146258) 26 mg/dL 5-60 Lab Interpretation (test code = Abnormal 66130-6) [facility] (39489)(TOTAL CHOLESTEROL, TRIGLYCERIDES, HDL)2022-10-05 16:54:48 Test Item Value Reference Range Interpretation Comments CHOL (test code = 0571288153) 183 mg/dL 120-200 HDL (test code = 6132106928) 40 mg/dL >=50 L HDLC RATIO (test code = 2008217581) 4.6 <=4.5 H TRIG (test code = 6673373253) 128 mg/dL 30-170 LDL CHOL (test code = 78193-4) 117 mg/dL <=160 VLDL (test code = 9547626599) 26 mg/dL 5-60 Lab Interpretation (test code = Abnormal 51727-2) [facility] (67751)(TOTAL CHOLESTEROL, TRIGLYCERIDES, HDL)2022-10-05 16:54:48 Test Item Value Reference Range Interpretation Comments CHOL (test code = 9166237840) 183 mg/dL 120-200 HDL (test code = 8230974311) 40 mg/dL >=50 L HDLC RATIO (test code = 2056684147) 4.6 <=4.5 H TRIG (test code = 9573329412) 128 mg/dL 30-170 LDL CHOL (test code = 24338-1) 117 mg/dL <=160 VLDL (test code = 3974947513) 26 mg/dL 5-60 Lab Interpretation (test code = Abnormal 19396-6) [facility] (47653)(TOTAL CHOLESTEROL, TRIGLYCERIDES, HDL)2022-10-05 16:54:48 Test Item Value Reference Range Interpretation Comments CHOL (test code = 2777566772) 183 mg/dL 120-200 HDL (test code = 9067976290) 40 mg/dL >=50 L HDLC RATIO (test code = 4706926517) 4.6 <=4.5 H TRIG (test code = 1096584950) 128 mg/dL 30-170 LDL CHOL (test code = 51357-6) 117 mg/dL <=160 VLDL (test code = 5634183897) 26 mg/dL 5-60 Lab Interpretation (test code = Abnormal 74826-1) [facility] (72136)(TOTAL CHOLESTEROL, TRIGLYCERIDES, HDL)2022-10-05 16:54:48 Test Item Value Reference Range Interpretation Comments CHOL (test code = 7930977548) 183 mg/dL 120-200 HDL (test code = 9636340609) 40 mg/dL >=50 L HDLC RATIO (test code = 4540642799) 4.6 <=4.5 H TRIG (test code = 6042639680) 128 mg/dL 30-170 LDL CHOL (test code = 44506-8) 117 mg/dL <=160 VLDL (test code = 3305656843) 26 mg/dL 5-60 Lab Interpretation (test code = Abnormal 72674-3) [facility] (07688)(TOTAL CHOLESTEROL, TRIGLYCERIDES, HDL)2022-10-05 16:54:48 Test Item Value Reference Range Interpretation Comments CHOL (test code = 0080870771) 183 mg/dL 120-200 HDL (test code = 4758177868) 40 mg/dL >=50 L HDLC RATIO (test code = 2565282110) 4.6 <=4.5 H TRIG (test code = 9582673125) 128 mg/dL 30-170 LDL CHOL (test code = 40623-3) 117 mg/dL <=160 VLDL (test code = 3433224578) 26 mg/dL 5-60 Lab Interpretation (test code = Abnormal 25879-5) [facility] (96735)(TOTAL CHOLESTEROL, TRIGLYCERIDES, HDL)2022-10-05 16:54:48 Test Item Value Reference Range Interpretation Comments CHOL (test code = 0907372082) 183 mg/dL 120-200 HDL (test code = 7978462598) 40 mg/dL >=50 L HDLC RATIO (test code = 8247985561) 4.6 <=4.5 H TRIG (test code = 5452209887) 128 mg/dL 30-170 LDL CHOL (test code = 27611-3) 117 mg/dL <=160 VLDL (test code = 4285034911) 26 mg/dL 5-60 Lab Interpretation (test code = Abnormal 48068-4) [facility] (15213)(TOTAL CHOLESTEROL, TRIGLYCERIDES, HDL)2022-10-05 16:54:48 Test Item Value Reference Range Interpretation Comments CHOL (test code = 4212807160) 183 mg/dL 120-200 HDL (test code = 5211346742) 40 mg/dL >=50 L HDLC RATIO (test code = 3906926209) 4.6 <=4.5 H TRIG (test code = 0349346013) 128 mg/dL 30-170 LDL CHOL (test code = 10989-1) 117 mg/dL <=160 VLDL (test code = 0250385925) 26 mg/dL 5-60 Lab Interpretation (test code = Abnormal 79610-0) [facility] (30313)(TOTAL CHOLESTEROL, TRIGLYCERIDES, HDL)2022-10-05 16:54:48 Test Item Value Reference Range Interpretation Comments CHOL (test code = 2014433839) 183 mg/dL 120-200 HDL (test code = 9789541317) 40 mg/dL >=50 L HDLC RATIO (test code = 0620225903) 4.6 <=4.5 H TRIG (test code = 7038008216) 128 mg/dL 30-170 LDL CHOL (test code = 13907-3) 117 mg/dL <=160 VLDL (test code = 5123801007) 26 mg/dL 5-60 Lab Interpretation (test code = Abnormal 54755-4) [facility] (10303)(TOTAL CHOLESTEROL, TRIGLYCERIDES, HDL)2022-10-05 16:54:48 Test Item Value Reference Range Interpretation Comments CHOL (test code = 2001396791) 183 mg/dL 120-200 HDL (test code = 1273859237) 40 mg/dL >=50 L HDLC RATIO (test code = 2902088032) 4.6 <=4.5 H TRIG (test code = 5956688673) 128 mg/dL 30-170 LDL CHOL (test code = 48250-9) 117 mg/dL <=160 VLDL (test code = 1976690714) 26 mg/dL 5-60 Lab Interpretation (test code = Abnormal 25552-1) [facility] (72105)(TOTAL CHOLESTEROL, TRIGLYCERIDES, HDL)2022-10-05 16:54:48 Test Item Value Reference Range Interpretation Comments CHOL (test code = 0970308008) 183 mg/dL 120-200 HDL (test code = 8555426874) 40 mg/dL >=50 L HDLC RATIO (test code = 9663408704) 4.6 <=4.5 H TRIG (test code = 4274740780) 128 mg/dL 30-170 LDL CHOL (test code = 94802-8) 117 mg/dL <=160 VLDL (test code = 1973780422) 26 mg/dL 5-60 Lab Interpretation (test code = Abnormal 89669-9) [facility] (21574)(TOTAL CHOLESTEROL, TRIGLYCERIDES, HDL)2022-10-05 16:54:48 Test Item Value Reference Range Interpretation Comments CHOL (test code = 6263836942) 183 mg/dL 120-200 HDL (test code = 6291981463) 40 mg/dL >=50 L HDLC RATIO (test code = 5251441065) 4.6 <=4.5 H TRIG (test code = 1023325330) 128 mg/dL 30-170 LDL CHOL (test code = 04836-0) 117 mg/dL <=160 VLDL (test code = 8137539550) 26 mg/dL 5-60 Lab Interpretation (test code = Abnormal 13566-1) [facility]2022-10-05 15:51:11 Test Item Value Reference Range Interpretation Comments HGB A1C (test code = 5.1 % 4.0-5.7 4548-4) ZAINAB (test code = ZAINAB) Reference RangesNormal: <5.7%Prediabetes: 5.7 - 6.4%Diabetes: > 6.5% Lab Interpretation (test Normal code = 95535-3) [facility]2022-10-05 15:51:11 Test Item Value Reference Range Interpretation Comments HGB A1C (test code = 5.1 % 4.0-5.7 4548-4) ZAINAB (test code = ZAINAB) Reference RangesNormal: <5.7%Prediabetes: 5.7 - 6.4%Diabetes: > 6.5% Lab Interpretation (test Normal code = 37034-9) [facility]2022-10-05 15:51:11 Test Item Value Reference Range Interpretation Comments HGB A1C (test code = 5.1 % 4.0-5.7 4548-4) ZAINAB (test code = ZAINAB) Reference RangesNormal: <5.7%Prediabetes: 5.7 - 6.4%Diabetes: > 6.5% Lab Interpretation (test Normal code = 65201-4) [facility]2022-10-05 15:51:11 Test Item Value Reference Range Interpretation Comments HGB A1C (test code = 5.1 % 4.0-5.7 4548-4) ZAINAB (test code = ZAINAB) Reference RangesNormal: <5.7%Prediabetes: 5.7 - 6.4%Diabetes: > 6.5% Lab Interpretation (test Normal code = 68356-6) [facility]2022-10-05 15:51:11 Test Item Value Reference Range Interpretation Comments HGB A1C (test code = 5.1 % 4.0-5.7 4548-4) ZAINAB (test code = ZAINAB) Reference RangesNormal: <5.7%Prediabetes: 5.7 - 6.4%Diabetes: > 6.5% Lab Interpretation (test Normal code = 69589-6) [facility]2022-10-05 15:51:11 Test Item Value Reference Range Interpretation Comments HGB A1C (test code = 5.1 % 4.0-5.7 4548-4) ZAINAB (test code = ZAINAB) Reference RangesNormal: <5.7%Prediabetes: 5.7 - 6.4%Diabetes: > 6.5% Lab Interpretation (test Normal code = 39137-8) [facility]2022-10-05 15:51:11 Test Item Value Reference Range Interpretation Comments HGB A1C (test code = 5.1 % 4.0-5.7 4548-4) ZAINAB (test code = ZAINAB) Reference RangesNormal: <5.7%Prediabetes: 5.7 - 6.4%Diabetes: > 6.5% Lab Interpretation (test Normal code = 29621-6) [facility]2022-10-05 15:51:11 Test Item Value Reference Range Interpretation Comments HGB A1C (test code = 5.1 % 4.0-5.7 4548-4) ZAINAB (test code = ZAINAB) Reference RangesNormal: <5.7%Prediabetes: 5.7 - 6.4%Diabetes: > 6.5% Lab Interpretation (test Normal code = 61394-8) [facility]2022-10-05 15:51:11 Test Item Value Reference Range Interpretation Comments HGB A1C (test code = 5.1 % 4.0-5.7 4548-4) ZAINAB (test code = ZAINAB) Reference RangesNormal: <5.7%Prediabetes: 5.7 - 6.4%Diabetes: > 6.5% Lab Interpretation (test Normal code = 84230-3) [facility] 15:51:11 Test Item Value Reference Range Interpretation Comments HGB A1C (test code = 5.1 % 4.0-5.7 4548-4) ZAINAB (test code = ZAINAB) Reference RangesNormal: <5.7%Prediabetes: 5.7 - 6.4%Diabetes: > 6.5% Lab Interpretation (test Normal code = 40229-2) [facility]22-10-05 15:51:11 Test Item Value Reference Range Interpretation Comments HGB A1C (test code = 5.1 % 4.0-5.7 4548-4) ZAINAB (test code = ZAINAB) Reference RangesNormal: <5.7%Prediabetes: 5.7 - 6.4%Diabetes: > 6.5% Lab Interpretation (test Normal code = 37226-2) [facility]22-10-05 15:51:11 Test Item Value Reference Range Interpretation Comments HGB A1C (test code = 5.1 % 4.0-5.7 4548-4) ZAINAB (test code = ZAINAB) Reference RangesNormal: <5.7%Prediabetes: 5.7 - 6.4%Diabetes: > 6.5% Lab Interpretation (test Normal code = 58713-3) [facility]2022-10-05 15:51:11 Test Item Value Reference Range Interpretation Comments HGB A1C (test code = 5.1 % 4.0-5.7 4548-4) ZAINAB (test code = ZAINAB) Reference RangesNormal: <5.7%Prediabetes: 5.7 - 6.4%Diabetes: > 6.5% Lab Interpretation (test Normal code = 35208-1) [facility]2022-10-05 15:51:11 Test Item Value Reference Range Interpretation Comments HGB A1C (test code = 5.1 % 4.0-5.7 4548-4) ZAINAB (test code = ZAINAB) Reference RangesNormal: <5.7%Prediabetes: 5.7 - 6.4%Diabetes: > 6.5% Lab Interpretation (test Normal code = 74886-3) [facility] WITH [id number] 15:20:32 Test Item Value Reference Range Interpretation Comments WBC (test code = 6.67 See_Comment [Automated 6003-2) message] The sy stem which generated this result transmitted reference range : 4.30 - 11.10 10*3/?L. The reference range was not used to interpret this result as normal/abnormal . RBC (test code = 4.04 See_Comment [Automated 589-8) message] The sy stem which generated this [...] RDW-SD (test code = 47.8 fL 39.0-49.9 66946-9) RDW-CV (test code = 18.0 % 12.0-15.5 H 788-0) PLT (test code = 296 See_Comment [Automated 777-3) message] The sy stem which generated this result transmitted reference range : 166 - 358 10*3/ ?L. The reference r kuldip was not used to interpret this result as normal/abnormal . MPV (test code = 10.7 fL 9.5-12.9 96134-1) NRBC/100 WBC (test 0.0 See_Comment [Automat ed code = 6610052985) message] The system which generated this result transmitted reference range : 0.0 - 10.0 /100 WBCs. The refer ence range was not u sed to interpret th is result as normal/abnormal . NRBC x10^3 (test code See_Comment [Auto mated = 9371544951) message] The s ystem which generated this result transmitted reference range : 10*3/?L. The reference range was not used to interpret this result as normal/abnormal . GRAN MAT (NEUT) % 70.0 % (test code = 770-8) IMM GRAN % (test code 0.40 % = 4268796659) LYMPH % (test code = 18.7 % 736-9) MONO % (test code = 5.7 % 5905-5) EOS % (test code = 4.5 % 713-8) BASO % (test code = 0.7 % 706-2) GRAN MAT x10^3(ANC) 4.66 10*3/uL 1.88-7.09 (test code = 3695621786) IMM GRAN x10^3 (test 0.03 10*3/uL 0.00-0.06 code = 4580310909) LYMPH x10^3 (test code 1.25 10*3/uL 1.32-3.29 L = 731-0) MONO x10^3 (test code 0.38 10*3/uL 0.33-0.92 = 742-7) EOS x10^3 (test code = 0.30 10*3/uL 0.03-0.39 711-2) BASO x10^3 (test code 0.05 10*3/uL 0.01-0.07 = 704-7) Lab Interpretation Abnormal (test code = 19801-8) [facility] WITH [id number] 15:20:32 Test Item Value Reference Range Interpretation [...] RDW-SD (test code = 47.8 fL 39.0-49.9 73391-9) RDW-CV (test code = 18.0 % 12.0-15.5 H 788-0) PLT (test code = 296 See_Comment [Automated 777-3) message] The sy stem which generated this result transmitted reference range : 166 - 358 10*3/ ?L. The reference r kuldip was not used to interpret this result as normal/abnormal . MPV (test code = 10.7 fL 9.5-12.9 54312-0) NRBC/100 WBC (test 0.0 See_Comment [Automat ed code = 9161717164) message] The system which generated this result transmitted reference range : 0.0 - 10.0 /100 WBCs. The refer ence range was not u sed to interpret th is result as normal/abnormal . NRBC x10^3 (test code See_Comment [Auto mated = 1672026756) message] The s ystem which generated this result transmitted reference range : 10*3/?L. The reference range was not used to interpret this result as normal/abnormal . GRAN MAT (NEUT) % 70.0 % (test code = 770-8) IMM GRAN % (test code 0.40 % = 5907010400) LYMPH % (test code = 18.7 % 736-9) MONO % (test code = 5.7 % 5905-5) EOS % (test code = 4.5 % 713-8) BASO % (test code = 0.7 % 706-2) GRAN MAT x10^3(ANC) 4.66 10*3/uL 1.88-7.09 (test code = 6286938740) IMM GRAN x10^3 (test 0.03 10*3/uL 0.00-0.06 code = 5109730405) LYMPH x10^3 (test code 1.25 10*3/uL 1.32-3.29 L = 731-0) MONO x10^3 (test code 0.38 10*3/uL 0.33-0.92 = 742-7) EOS x10^3 (test code = 0.30 10*3/uL 0.03-0.39 711-2) BASO x10^3 (test code 0.05 10*3/uL 0.01-0.07 = 704-7) Lab Interpretation Abnormal (test code = 76951-1) [facility] WITH [id number] 15:20:32 Test Item Value Reference Range Interpretation Comments WBC (test code = 6.67 See_Comment [Automated 2990-2) message] The sy stem which generated this result transmitted reference range : 4.30 - 11.10 10*3/?L. The reference range was not used to interpret this result as normal/abnormal . RBC (test code = 4.04 See_Comment [Automated 528-8) message] The sy stem which generated this [...] RDW-SD (test code = 47.8 fL 39.0-49.9 49245-2) RDW-CV (test code = 18.0 % 12.0-15.5 H 788-0) PLT (test code = 296 See_Comment [Automated 777-3) message] The sy stem which generated this result transmitted reference range : 166 - 358 10*3/ ?L. The reference r kuldip was not used to interpret this result as normal/abnormal . MPV (test code = 10.7 fL 9.5-12.9 87520-4) NRBC/100 WBC (test 0.0 See_Comment [Automat ed code = 3172601157) message] The system which generated this result transmitted reference range : 0.0 - 10.0 /100 WBCs. The refer ence range was not u sed to interpret th is result as normal/abnormal . NRBC x10^3 (test code See_Comment [Auto mated = 0091644108) message] The s ystem which generated this result transmitted reference range : 10*3/?L. The reference range was not used to interpret this result as normal/abnormal . GRAN MAT (NEUT) % 70.0 % (test code = 770-8) IMM GRAN % (test code 0.40 % = 6031668447) LYMPH % (test code = 18.7 % 736-9) MONO % (test code = 5.7 % 5905-5) EOS % (test code = 4.5 % 713-8) BASO % (test code = 0.7 % 706-2) GRAN MAT x10^3(ANC) 4.66 10*3/uL 1.88-7.09 (test code = 8302589429) IMM GRAN x10^3 (test 0.03 10*3/uL 0.00-0.06 code = 0627217154) LYMPH x10^3 (test code 1.25 10*3/uL 1.32-3.29 L = 731-0) MONO x10^3 (test code 0.38 10*3/uL 0.33-0.92 = 742-7) EOS x10^3 (test code = 0.30 10*3/uL 0.03-0.39 711-2) BASO x10^3 (test code 0.05 10*3/uL 0.01-0.07 = 704-7) Lab Interpretation Abnormal (test code = 10331-2) [facility]2023-06-14 17:27:33 Test Item Value Reference Range Interpretation Comments Flow[place] (test code = 0.3 mmol/L 0.6-1.2 L 3679367232) ZAINAB (test code = ZAINAB) Toxic Range: ? Greater than 1.2 mmol/L Lab Interpretation (test Abnormal code = 51224-7) [facility]2023-06-14 17:27:33 Test Item Value Reference Range Interpretation Comments Flow[place] (test code = 0.3 mmol/L 0.6-1.2 L 2117091906) ZAINAB (test code = ZAINAB) Toxic Range: ? Greater than 1.2 mmol/L Lab Interpretation (test Abnormal code = 25410-8) [facility]2023-06-14 17:27:33 Test Item Value Reference Range Interpretation Comments [place] (test code = 0.3 mmol/L 0.6-1.2 L 5214945143) ZAINAB (test code = ZAINAB) Toxic Range: ? Greater than 1.2 mmol/L Lab Interpretation (test Abnormal code = 60475-9) [facility]2023-06-14 17:27:33 Test Item Value Reference Range Interpretation Comments [place] (test code = 0.3 mmol/L 0.6-1.2 L 0338150882) ZAINAB (test code = ZAINAB) Toxic Range: ? Greater than 1.2 mmol/L Lab Interpretation (test Abnormal code = 75798-0) [facility]2023-06-14 17:27:33 Test Item Value Reference Range Interpretation Comments [place] (test code = 0.3 mmol/L 0.6-1.2 L 5463293853) ZAINAB (test code = ZAINAB) Toxic Range: ? Greater than 1.2 mmol/L Lab Interpretation (test Abnormal code = 17580-6) [facility]2023-06-14 17:27:33 Test Item Value Reference Range Interpretation Comments [place] (test code = 0.3 mmol/L 0.6-1.2 L 8031617961) ZAINAB (test code = ZAINAB) Toxic Range: ? Greater than 1.2 mmol/L Lab Interpretation (test Abnormal code = 03983-7) [facility]2023-06-14 17:27:33 Test Item Value Reference Range Interpretation Comments [place] (test code = 0.3 mmol/L 0.6-1.2 L 8848845138) ZAINAB (test code = ZAINAB) Toxic Range: ? Greater than 1.2 mmol/L Lab Interpretation (test Abnormal code = 10905-0) [facility]2023-06-14 17:27:33 Test Item Value Reference Range Interpretation Comments [place] (test code = 0.3 mmol/L 0.6-1.2 L 9543012857) ZAINAB (test code = ZAINAB) Toxic Range: ? Greater than 1.2 mmol/L Lab Interpretation (test Abnormal code = 94267-6) [facility]2023-06-14 17:27:33 Test Item Value Reference Range Interpretation Comments [place] (test code = 0.3 mmol/L 0.6-1.2 L 0953736968) ZAINAB (test code = ZAINAB) Toxic Range: ? Greater than 1.2 mmol/L Lab Interpretation (test Abnormal code = 73133-6) [facility]2023-06-14 17:27:33 Test Item Value Reference Range Interpretation Comments [place] (test code = 0.3 mmol/L 0.6-1.2 L 7355630247) ZAINAB (test code = ZAINAB) Toxic Range: ? Greater than 1.2 mmol/L Lab Interpretation (test Abnormal code = 64093-4) [facility]2023-06-14 17:27:33 Test Item Value Reference Range Interpretation Comments [place] (test code = 0.3 mmol/L 0.6-1.2 L 2120400683) ZAINAB (test code = ZAINAB) Toxic Range: ? Greater than 1.2 mmol/L Lab Interpretation (test Abnormal code = 70341-7) [facility] 17:27:33 Test Item Value Reference Range Interpretation Comments [place] (test code = 0.3 mmol/L 0.6-1.2 L 2538424412) ZAINAB (test code = ZAINAB) Toxic Range: ? Greater than 1.2 mmol/L Lab Interpretation (test Abnormal code = 03193-7) [facility] W/AUTO DIFF WITH [id number] 06:12:05 Test Item Value Reference Range Interpretation [...] RBCS 0.00 K/UL 0.00-0.11 (test code = 05881) RETICULOCYTE WITH [id number] 06:12:05 Test Item Value Reference Range Interpretation Comments RETICULOCYTE COUNT 2.50 % 0.80-2.40 H (test code = 1018) ABSOLUTE RETICULOCYTE 103.3 K/UL 32.0-105.[address] has important (test code = 94806) patholog y staff changes effecti ve 04/12/2022. New pathology staff will provide uninter rupted, excellent patie nt care and clinical consultation. S ee URL: [email or web address]. UNLES S OTHERWISE INDIC ATED, ALL TESTING PER FORMED AT [facility]. [address] [place] [address] TANG ABBASI DIRECTOR: Mary DAILY ROSEMARY NUMBER [id number] CAP ACCREDITATION N O. [id number] YAZMIN NON-REFLEX TO [id number] 05:55:49 Test Item Value Reference Range Interpretation Comments ANTI-NUCLEAR NEGATIVE NEGATIVE METHODOLOGY IS INDIRECT ANTIBODIES (test IMMUNOFLUOR ESCENT ASSAY code = 3506) (IFA) WITH ADELE N EPITHELIAL (HEP -2) CELL LINE SUBSTRATE. FOLATE, [id number] 12:42:51 Test Item Value Reference Range Interpretation [...] . . . NG/ML >1504 TSH, THIRD [id number] 11:05:54 Test Item Value Reference Range Interpretation Comments TSH, THIRD GENERATION (test code 1.310 UIU/ML 0.400-4.100 = 2821) VITAMIN [id number] 11:05:54 Test Item Value Reference Range Interpretation Comments VITAMIN B-12 (test code = 2840) 436 PG/ML 200-950 VITAMIN D, 25 [id number] 11:03:45 Test Item Value Reference Range Interpretation [...] . . . . . NG/ML 30-100 [facility] has important p athology staff changes effecti ve 04/12/2022. New patholo gy staff will provide uninter rupted, excellent patie nt care and clinical consul tation. See URL: [email or web address]. UNLESS OTHERWIS E INDICATED, ALL TESTING PERFORM ED AT CLINICAL PATHOLOGY [facility] [address] [place] [address] LABORATORY DIRE CTOR: CHARLA HERNANDEZ M.D. C ROSEMARY NUMBER [id number] [place]. [id number] URIC [id number] 05:28:57 Test Item Value Reference Range Interpretation Comments URIC ACID (test code = 2233) 6.7 MG/DL 2.7-6.1 H COMPREHENSIVE METABOLIC [id number] 05:28:57 Test Item Value Reference Range Interpretation Comments GLUCOSE (test code = 103 MG/DL 70-99 H 2216) BUN (test code = 9 MG/DL 6-20 2207) CREATININE (test 0.72 MG/DL 0.60-1.30 code = 2214) eGFR (2020 CKD-EPI) 106 >60 (test code = 99960) ML/MIN/1.73 CALC BUN/CREAT (test 13 RATIO 6-28 code = 2235) SODIUM (test code = 139 MEQ/L 652-696 5936) POTASSIUM (test code 4.5 MEQ/L 3.5-5.4 = 2227) CHLORIDE (test code 104 MEQ/L 95-107 = 2214) CARBON DIOXIDE (test 24 MEQ/L 19-31 code [...] code = 26 U/L 5-40 2218) LIPID [id number] 05:28:57 Test Item Value Reference Range Interpretation [...] MOREINFORMATION , SEE CLIENT ANNOUNCE MENT AT [email or web address] RISK RATIO LDL/HDL 3.04 RATIO <3.22 (test code = 2238) HEMOGLOBIN [id number] 02:54:46 Test Item Value Reference Range Interpretation Comments HEMOGLOBIN A1c (test code = 46482) 5.6 % 4.2-5.6 CBC W/AUTO DIFF WITH [id number] 01:58:18 Test Item Value Reference Range Interpretation [...] RBCS 0.00 K/UL 0.00-0.11 (test code = 28416) [id number] 20:05:22 Test Item Value Reference Range Interpretation Comments Flowood (test code = 1.1 mmol/L 0.6-1.2 6804405842) ZAINAB (test code = ZAINAB) Toxic Range: ? Greater than 1.2 mmol/L Lab Interpretation (test Normal code = 41424-5) [facility]2023-01-04 20:05:22 Test Item Value Reference Range Interpretation Comments [place] (test code = 1.1 mmol/L 0.6-1.2 3358715575) ZAINAB (test code = ZAINAB) Toxic Range: ? Greater than 1.2 mmol/L Lab Interpretation (test Normal code = 52813-2) [facility]2023-01-04 20:05:22 Test Item Value Reference Range Interpretation Comments [place] (test code = 1.1 mmol/L 0.6-1.2 2549812127) ZAINAB (test code = ZAINAB) Toxic Range: ? Greater than 1.2 mmol/L Lab Interpretation (test Normal code = 93071-2) [facility]2023-01-04 20:05:22 Test Item Value Reference Range Interpretation Comments [place] (test code = 1.1 mmol/L 0.6-1.2 2805004628) ZAINAB (test code = ZAINAB) Toxic Range: ? Greater than 1.2 mmol/L Lab Interpretation (test Normal code = 61832-1) [facility]2023-01-04 20:05:22 Test Item Value Reference Range Interpretation Comments [place] (test code = 1.1 mmol/L 0.6-1.2 2078424996) ZAINAB (test code = ZAINAB) Toxic Range: ? Greater than 1.2 mmol/L Lab Interpretation (test Normal code = 89810-9) [facility]2023-01-04 20:05:22 Test Item Value Reference Range Interpretation Comments [place] (test code = 1.1 mmol/L 0.6-1.2 8783859132) ZAINAB (test code = ZAINAB) Toxic Range: ? Greater than 1.2 mmol/L Lab Interpretation (test Normal code = 07576-1) [place] [address]-01-04 20:05:22 Test Item Value Reference Range Interpretation Comments [place] (test code = 1.1 mmol/L 0.6-1.2 0853701401) ZAINAB (test code = ZAINAB) Toxic Range: ? Greater than 1.2 mmol/L Lab Interpretation (test Normal code = 08329-4) [facility]2023-01-04 20:05:22 Test Item Value Reference Range Interpretation Comments [place] (test code = 1.1 mmol/L 0.6-1.2 8615847934) ZAINAB (test code = ZAINAB) Toxic Range: ? Greater than 1.2 mmol/L Lab Interpretation (test Normal code = 38352-2) [facility]2023-01-04 20:05:22 Test Item Value Reference Range Interpretation Comments [place] (test code = 1.1 mmol/L 0.6-1.2 1416565890) ZAINAB (test code = ZAINAB) Toxic Range: ? Greater than 1.2 mmol/L Lab Interpretation (test Normal code = 07911-1) [facility]2023-01-04 20:05:22 Test Item Value Reference Range Interpretation Comments [place] (test code = 1.1 mmol/L 0.6-1.2 0875333779) ZAINAB (test code = ZAINAB) Toxic Range: ? Greater than 1.2 mmol/L Lab Interpretation (test Normal code = 60250-0) [facility]2018-07-20 07:27:00 Test Item [...] VERY HIGH.........>/ = 190 mg/dL Comments to Equipment Sterilizer: ADD TO AM LABSLIPID PROFILE (CORONARY RISK)2018-07-20 [...] MG/DL 0-99 code = LDL) Comments to Equipment Sterilizer: ADD TO AM LABSPROTHROMBIN [id number] 06:24:00 Test Item Value Reference Range Interpretation [...] myocar dial infarction. 2.0 - 3.0 3. Hand Folder al prosthesis hear t valves, recurre nt systemic emboli sm. 3.0 - 4.5 Comments to Equipment Sterilizer: NURSE WILL BRING SPECIMEN TO LABPTT ACTIVATED 2018-07-20 06:24:00 Test Item Value Reference Range Interpretation Comments PTT ACTIVATED (test code = APTT) 29.3 SECONDS 22.0-33.0 N Comments to Equipment Sterilizer: NURSE WILL BRING SPECIMEN TO LABBASIC METABOLIC [...] 9.6 MG/DL 8.4-10.2 N CA) Comments to Equipment Sterilizer: NURSE WILL BRING SPECIMEN TO LAB Comments to Equipment Sterilizer: NURSE WILL BRING SPECIMEN TO [id number] 06:13:00 Test Item Value Reference Range Interpretation Comments MAGNESIUM (test code = MAG) 2.2 MG/DL 1.6-2.3 N Comments to Equipment Sterilizer: NURSE WILL BRING SPECIMEN TO LAB Comments to Equipment Sterilizer: NURSE WILL BRING SPECIMEN TO LABCBC W/AUTO [id number] 06:02:00 Test Item Value Reference Range Interpretation [...] (test code = 0.00 K/mm3 0.0-0.1 N [facility]#) Notes Date/Time Note Provider Source 2022-10-19 08:30:00 6277-07-69X44:30:00Formatting [facility] this note is different from the original.Images from the original note were not included.Venipuncture collection performed by clean technique on the left anticubitus. Total of 1 attempts were made. Slight pressure and a bandage/dressing were applied to the site(s). The patient experienced no complications. The following specimens were processed according to instructions and sent to [facility] laboratories LT BLUE Lt Green SST 2 RED LAV PPT DK GREEN (L) DK GREEN (S)/// Fibrosure set BLUE,SST & LAV SUE DK BLUE (K2) DK BLUE (S) ACD RST BLOOD CULTURE NIPT or ALLOSURE VERIFYNOW URINE URINE CULTURE APTIMA URINE STOOL Monogram Z plasma preservative tube (call lab for tube)[facility]UP Vasoactive Intestinal Peptide (call lab for tube)[facility]UP 12375-9Iwnzj ScqxMI2170-44-73X27:36:26Nurse NoteTXT1.2.840.992976.1.13.104.2.7.2 .694577|[id number] for patient hhui38903-8Lvozx [id number] Noa [address] Oo[id number] MYDVWQYJAYWFCEOKJFEOXQ9545-67-40O00: 36:261.2.840.412104.1.72.3.15|1.2.84 0.353729.1.13.104.2.7.2.727879_18933 90072 2022-10-05 10:15:00 7700-00-80V73:15:00Formatting of [facility] this note is different from the original.Images from the original note were not included.Venipuncture collection performed by clean technique on the left anticubitus. Total of 1 attempts were made. Slight pressure and a bandage/dressing were applied to the site(s). The patient experienced no complications. The following specimens were processed according to instructions and sent to [facility] laboratories per lab order on 10/05/2022: LT BLUE SST 1 RED LAV 2 PPT DK GREEN (LiHep) DK GREEN (SodH) SUE DK BLUE (K2) DK BLUE (S) ACD Blood Culture NIPT/NTD 33934-6Aakkz McqmBG8520-65-76W59:17:14Nurse NoteTXT1.2.840.592257.1.13.104.2.7.2 .182110|[id number] for patient hnyz44939-1Rckmt [id number] DRXKDUJVGAVEQABBEJVBGC9202-80-86H11: 17:141.2.840.023819.1.72.3.15|1.2.84 0.642456.1.13.104.2.7.2.727879_18822 67424 2018-07-20 06:55:00 FGilokzasya598270562202-14-86K99:55: [facility] [address]608[address] [place] [id number] PATIENT NAME: SHIVANI SCHULER ADMIT DATE: 07/20/18ACCOUNT NO: [id number] ROOM NO: AGE: 43 REPORT TYPE: CARDIAC CATHETERIZATION REPORT SEX: F ADMITTING PHYSICIAN: ATTENDING PHYSICIAN:Thea Harper MD PROCEDURE DATE: 07/20/2018 MANUFACTURING ENGINEERING INTERN: Thea Harper MD TITLE OF THE PROCEDURE: [...] common femoral artery area for localanesthesia. A 6-Albanian sheath was placed in the right common [...] no complications. [facility] later on today on medical therapy PATIENT NAME: SHIVANI SCHULER and risk factor modification. Dictated By: Thea Harper MD WT: CATH:ADRIANA/KIAN/RIGOBERTODD: 07/20/2018 06:55:03DT: 07/20/2018 07:17:37Conf#: [id number]/DID#: [id number] Authenticated by Thea Harper MD On 07/20/2018 08:15:22 AM at 0815 PATIENT NAME: SHIVANI SCHULER Vxtp7864-91-61X92:17:00Z.TJD05561847 -0036AVAvailable for patient qdmbNTXPSJDQPSVKGM6176-57-27Z31:15:5 6 2018-07-20 06:06:00 LByrypompzj408340913275-44-06Q13:06: [facility] 619181[address] [place] [id number] PATIENT NAME: SHIVANI SCHULER ADMIT DATE: 07/20/18ACCOUNT NO: [id number] ROOM NO: AGE: 43 REPORT TYPE: ELECTROCARDIOGRAM SEX: F ADMITTING PHYSICIAN: ATTENDING PHYSICIAN:Thea Harper MD Order:[id number] Reason : CAD Test Date/Time Stamp:SunJul 20 [...] HARPER at 0921 PATIENT NAME: SHIVANI SCHULER .[facility] [id number] for patient jqfqZHPIYPTLDKJAVT8833-72-55G76:22:0 4 2018-07-19 18:55:00 IFzgmebbzxo679406898579-25-35U80:55: [facility] [id number] [address] PATIENT NAME: SHIVANI SCHULER ADMIT DATE: 07/20/18ACCOUNT NO: [id number] ROOM NO: AGE: 43 REPORT TYPE: HISTORY AND PHYSICAL SEX: F ADMITTING PHYSICIAN: ATTENDING PHYSICIAN:Thea Harper MD ADMISSION DATE: 07/20/2018 MANUFACTURING ENGINEERING INTERN: Thea Harper MD REASON FOR ADMISSION: Chest [...] detail with the patient. Dictated By: Thea aHrper MD WT: HP:TRAVIS/KIAN/NTSDD: 07/19/2018 18:55:38DT: 07/19/2018 19:52:26Conf#: [id number]/DID#: [id number] by Thea Harper MD On 07/25/2018 07:20:46 AM at 0721 PATIENT NAME: SHIVANI SCHULER and physical hymkxqonvcs9497-82-49Z00:52:00Z.[facility]2 [id number] for patient pyskUINMDZHUTVZQMM5922-60-56W67:21:2 2"
[2023-01-16] MEDS ORDERED: NA CHLORIDE 0.9% 1,000 ML ONE (09:32)
[2023-01-16 09:58] LABS: Albumin 3.4 g/dL (3.4-5.0); Bilirubin Total 0.4 mg/dL (0.2-1.0); Potassium 4.2 mEq/L (3.5-5.1); Protein, Total 6.7 g/dL (6.4-8.2)
[2023-01-16 09:59] LABS: Specific Gravity 1.013 (1.005-1.030)
[2023-01-16 10:02] LABS: Specific Gravity 1.013 (1.005-1.030); Urine Bacteria <20 /HPF (<20); Urine Bilirubin NEGATIVE (Negative); Urine Blood 3+ (OVER) (Negative); Urine Clarity Turbid (Clear); Urine Color Light-Yellow (Yellow); Urine Glucose NEGATIVE (Negative); Urine Mucus Slight /HPF (None Seen); Urine Protein NEGATIVE (Negative); Urine Urobilinogen Normal (Normal)
--- NOTE | 2023-01-16 10:05 | RAD REPORT ---
EXAM DESCRIPTION: CT - Abdomen Pelvis W Contrast - 01/16/2023 9:46 am CLINICAL HISTORY: ABD PAIN COMPARISON: Abdomen Pelvis W Contrast dated 01/03/2023; Abdomen Pelvis W Contrast dated 2; Abdomen Pelvis W Contrast dated 07/12/2021; Abdomen Pelvis W Contrast dated 11/26/2020 TECHNIQUE: Thin cut axial CT imaging of the abdomen and pelvis was performed following intravenous a dministration of 100 mL Isovue 300. Multiplanar reformats were generated and reviewed. All CT scans are performed using dose optimization technique as appropriate and may include automated exposure control or mA/KV adjustment according to patient size. FINDINGS: No suspicious findings in the lung bases. The liver, spleen, adrenal glands, and pancreas show no suspicious findings. Gallbladder and biliary tree are also without suspicious finding. Symmetric renal function is seen with no hydronephrosis or suspicious renal mass. No dilated bowel loops or bowel wall thickening. Appendix is unremarkable. No free air, free fluid or inflammatory stranding. No hernia, mass or bulky lymphadenopathy. The urinary bladder is without sig nificant finding. No suspicious bony findings. IMPRESSION: No acute intra-abdominal process.
[2023-01-16 10:36] LABS: Hematocrit 27.9 % (36.0-45.0); MCV 69.7 fL (80-100); MPV 8.3 fL (7.6-11.3); Platelets 216 thou/uL (152-406)
--- NOTE | 2023-01-16 11:27 | ER ---
Nurse's Notes [facility] Name: Shivani Lagunas Age: 47 yrs Sex: Female : 1975 Arrival Date: 01/16/2023 Time: 08:15 Bed 14 Private MD: Diagnosis: Abdominal pain, unspecified Presentation: 01/16 08:29 Chief complaint: Patient states: RLQ abd. pain for 3 weeks. Not getting better. ll1 Coronavirus screen: Vaccine status: Patient reports being unvaccinated. Client denies travel out of the [place] in the last 14 days. At this time, the client does not indicate any symptoms associated with coronavirus-19. Ebola Screen: Patient denies travel to an Ebola-affected area in the 21 days before illness onset. Initial Sepsis Screen: Does the patient meet any 2 criteria? No. Patient's initial sepsis screen is negative. Does the patient have a suspected source of infection? Yes: Acute abdominal pain. Risk Assessment: Do you want to hurt yourself or someone else? Patient reports no desire to harm self or others. Onset of symptoms was December 27, 2022. 08:29 Method Of Arrival: Ambulatory ll1 08:29 Acuity: ALICIA 3 ll1 Triage Assessment: 08:30 General: Appears uncomfortable, Behavior is calm, cooperative, appropriate for age. ll1 Pain: Complains of pain in RLQ Pain currently is 7 out of 10 on a pain scale. Quality of pain is described as aching. GI: Reports lower abdominal pain, nausea. Historical: - Allergies: 08:24 Sulfa (Sulfonamide Antibiotics); ll1 - PMHx: 08:24 Bipolar disorder; Hypertensive disorder; Schizophrenia; ll1 - PSHx: 08:24 section; Cholecystectomy; ll1 - Immunization history:: Adult Immunizations up to date. - Social history:: Smoking status: Patient denies any tobacco usage or history of. Screenin:52 [facility] ED Fall Risk Assessment (Adult) Score/Fall Risk Level 0 - 2 = Low Risk nj1 Oriented to surroundings, Maintained a safe environment, Hourly rounding (assess needs \T\ fall precautionary measures) done. Abuse screen: Denies threats or abuse. Denies injuries from another. Nutritional screening: No deficits noted. Tuberculosis screening: No symptoms or risk factors identified. Assessment: 09:21 General: Appears in no apparent distress. comfortable, Behavior is calm, cooperative, nj1 appropriate for age. Pain: Complains of pain in right lower quadrant Pain currently is 7 out of 10 on a pain scale. Neuro: Level of Consciousness is awake, alert, obeys commands, Oriented to person, place, time, situation. Cardiovascular: Patient's skin is warm and dry. Respiratory: Airway is patent Respiratory effort is even, unlabored. GI: Reports lower abdominal pain, Patient currently denies diarrhea, nausea, vomiting. 11:50 Reassessment: Patient appears in no apparent distress at this time. No changes from [facility] previously documented assessment. Patient and/or family updated on plan of care and expected duration. Pain level reassessed. Patient is alert, oriented x 3, equal unlabored respirations, skin warm/dry/pink. Vital Signs: 08:29 BP 160 / 82; Pulse 88; Resp 17; Temp 98.2; Pulse Ox 100% ; Weight 99.79 kg; Height 5 ll1 ft. 6 in. ; Pain 7/10; 11:50 BP 134 / 70; Pulse 68; Resp 16; Temp 97.7(TE); Pulse Ox 98% on R/A; Pain 7/10; nj1 08:29 Body Mass Index 35.51 (99.79 kg, 167.64 cm) ll1 08:29 Pain Scale: Adult ll1 11:50 Pain Scale: Adult mn1 ED Course: 08:23 Patient arrived in ED. mg5 08:23 Arm band placed on. ll1 08:30 Triage completed. ll1 08:54 Patient placed in an exam room, on a stretcher. ll1 09:08 Sinan Meier MD is Attending Physician. sp3 09:14 Ember Leger, AMANDA is Primary Nurse. nj1 09:21 Patient has correct armband on for positive identification. Bed in low position. Call [facility] light in reach. 09:33 CBC with Diff Sent. em1 09:33 CMP Sent. em1 09:33 Lipase Sent. em1 09:33 Initial lab(s) drawn, by me, sent to lab. Missed attempt(s): 22 gauge in right hand. em1 forearm. Bleeding controlled, band aid applied, catheter tip intact. 09:40 Inserted saline lock: 22 gauge in left antecubital area, using aseptic technique. nj1 09:48 CT Abd/Pelvis - IV Contrast Only In Process Unspecified. EDMS 11:52 No provider procedures requiring assistance completed. IV discontinued, intact, nj1 bleeding controlled. 11:53 Provided Education on: discharge instructions. nj1 Administered Medications: 09:40 Drug: NS 0.9% IV 1000 ml IV at 1 bolus Per protocol; 1000 mL bolus Route: IV; Rate: 1 nj1 bolus; Site: left antecubital; 11:50 Follow up: Response: No adverse reaction; IV Status: Order to discontinue infusion; IV nj1 Intake: 500ml Medication: 11:52 VIS not applicable for this client. nj1 Intake: 11:50 IV: 500ml; Total: 500ml. nj1 Outcome: 11:26 Discharge ordered by . sp3 11:52 Discharged to home ambulatory, nj1 11:52 Condition: stable 11:52 Discharge instructions given to patient, Instructed on discharge instructions, follow up and referral plans. Demonstrated understanding of instructions, follow-up care, 11:55 Patient left the ED. nj1 Signatures: Dispatcher [employer] EDMS Bernardo Godoy em1 Demi Kearney, RN RN ll1 Sinan Meier MD MD sp3 Ember Leger RN RN nj1 Olesya Santa mg5
--- NOTE | 2023-01-16 11:27 | EDPHYS ---
Physician Documentation [facility] Name: Shivani Lagunas Age: 47 yrs Sex: Female : 1975 Arrival Date: 01/16/2023 Time: 08:15 Bed 14 Private MD: JORDON Physician Sinan Meier HPI: 01/16 09:45 This 47 yrs old Female presents to ER via Ambulatory with complaints of sp3 Abdominal Pain. 09:45 47-year-old female with history of bipolar disease, hypertension, schizophrenia sp3 presents with right lower quadrant abdominal pain for 2 weeks. Patient's past surgical history includes low transverse elective in nature, cholecystectomy with no other abdominal surgeries noted. Patient has had ovarian cyst in the past that was symptomatic from a pain standpoint. Patient denies with LMP less than 4 weeks ago. Pain is described as coming and going off and on for the last 2 weeks sharp in nature in the right lower quadrant. She denies constipation or diarrhea or any other changes in her bowel movements or dietary intake. Review of systems, she denies fever, URI symptoms, headache, neck pain, shortness of breath, chest pain, upper abdominal pain, nausea, vomiting, diarrhea, back pain, flank pain, dysuria, gross hematuria, vaginal discharge or bleeding, syncope, near syncope, focal neurological deficit, rash, known sick contacts, travel history, or any other signs or symptoms at this time.. Historical: - Allergies: 08:24 Sulfa (Sulfonamide Antibiotics); ll1 - PMHx: 08:24 Bipolar disorder; Hypertensive disorder; Schizophrenia; ll1 - PSHx: 08:24 section; Cholecystectomy; ll1 - Immunization history:: Adult Immunizations up to date. - Social history:: Smoking status: Patient denies any tobacco usage or history of. ROS: 09:46 Constitutional: Negative for fever, chills, and weight loss, Eyes: Negative for injury, sp3 pain, redness, and discharge, ENT: Negative for injury, pain, and discharge, Neck: Negative for injury, pain, and swelling, Cardiovascular: Negative for chest pain, palpitations, and edema, Respiratory: Negative for shortness of breath, cough, wheezing, and pleuritic chest pain, Back: Negative for injury and pain, MS/Extremity: Negative for injury and deformity, Skin: Negative for injury, rash, and discoloration, Neuro: Negative for headache, weakness, numbness, tingling, and seizure, Psych: Negative for depression, anxiety, suicide ideation, homicidal ideation, and hallucinations, Allergy/Immunology: Negative for hives, rash, and allergies, Endocrine: Negative for neck swelling, polydipsia, polyuria, polyphagia, and marked weight changes, Hematologic/Lymphatic: Negative for swollen nodes, abnormal bleeding, and unusual bruising, 09:46 All other systems are negative, Exam: 09:47 Constitutional: This is a well developed, well nourished patient who is awake, alert, sp3 and in no acute distress. Head/Face: Normocephalic, atraumatic. Eyes: Pupils equal round and reactive to light, extra-ocular motions intact. Lids and lashes normal. Conjunctiva and sclera are non-icteric and not injected. Cornea within normal limits. Periorbital areas with no swelling, redness, or edema. ENT: Nares patent. No nasal discharge, no septal abnormalities noted. External auditory canals are clear. Oropharynx with no redness, swelling, or masses, exudates, or evidence of obstruction, uvula midline. Mucous membranes moist. Neck: Trachea midline, no thyromegaly or masses palpated, and no cervical lymphadenopathy. Supple, full range of motion without nuchal rigidity, or vertebral point tenderness. No Meningismus. Chest/axilla: Normal chest wall appearance and motion. Nontender with no deformity. No lesions are appreciated. Cardiovascular: Regular rate and rhythm with a normal S1 and S2. No gallops, murmurs, or rubs. Normal PMI, no JVD. No pulse deficits. Respiratory: Lungs have equal breath sounds bilaterally, clear to auscultation and percussion. No rales, rhonchi or wheezes noted. No increased work of breathing, no retractions or nasal flaring. Back: No spinal tenderness. No costovertebral tenderness. Full range of motion. Skin: Warm, dry with normal turgor. Normal color with no rashes, no lesions, and no evidence of cellulitis. MS/ Extremity: Pulses equal, no cyanosis. Neurovascular intact. Full, normal range of motion. Neuro: Awake and alert, GCS 15, oriented to person, place, time, and situation. Cranial nerves II-XII grossly intact. Motor strength 5/5 in all extremities. Sensory grossly intact. Cerebellar exam normal. Normal gait. Psych: Awake, alert, with orientation to person, place and time. Behavior, mood, and affect are within normal limits. 09:47 Abdomen/GI: Right lower quadrant abdominal pain to palpation without peritoneal signs, rebound or guarding. No flank pain noted. No peritoneal signs and abdomen is nonsurgical in nature from an exam standpoint., Vital Signs: 08:29 BP 160 / 82; Pulse 88; Resp 17; Temp 98.2; Pulse Ox 100% ; Weight 99.79 kg; Height 5 ll1 ft. 6 in. ; Pain 7/10; 11:50 BP 134 / 70; Pulse 68; Resp 16; Temp 97.7(TE); Pulse Ox 98% on R/A; Pain 7/10; nj1 08:29 Body Mass Index 35.51 (99.79 kg, 167.64 cm) ll1 08:29 Pain Scale: Adult ll1 11:50 Pain Scale: Adult nj1 MDM: 09:09 Patient medically screened. sp3 09:47 Data reviewed: vital signs, nurses notes, old medical records, lab test result(s), sp3 radiologic studies. ED course: 47-year-old with right lower quad abdominal pain for 2 weeks per differential diagnosis includes appendicitis, ovarian cyst, functional abdominal pain, constipation, partial SBO, among others. Work-up will include laboratory values, urine analysis, CT scan of the abdomen pelvis, IV fluids and general supportive care. Disposition pending work-up and patient course.. 11:25 ED course: Full work-up is negative. Patient is anemic microcytic in nature. She does sp3 now endorse that she has been getting iron infusions starting last week. At this time we will safely discharge patient home with PCP follow-up.. 01/16 09:10 Order name: CBC with Diff; Complete Time: 11:21 sp3 01/16 09:10 Order name: CMP; Complete Time: 10:13 sp3 01/16 09:10 Order name: Lipase; Complete Time: 10:13 sp3 01/16 09:10 Order name: Test, Urine; Complete Time: 10:13 sp3 01/16 09:10 Order name: Urinalysis w/ reflexes; Complete Time: 10:13 sp3 01/16 09:10 Order name: CT Abd/Pelvis - IV Contrast Only; Complete Time: 10:13 sp3 01/16 09:10 Order name: IV Saline Lock; Complete Time: 09:47 sp3 01/16 09:10 Order name: Labs collected and sent; Complete Time: 09:33 sp3 01/16 09:57 Order name: Labs - recollect needed: recollect lavender top; Complete Time: 10:30 bd Administered Medications: 09:40 Drug: NS 0.9% IV 1000 ml IV at 1 bolus Per protocol; 1000 mL bolus Route: IV; Rate: 1 nj1 bolus; Site: left antecubital; 11:50 Follow up: Response: No adverse reaction; IV Status: Order to discontinue infusion; IV nj1 Intake: 500ml Disposition Summary: 01/16/23 11:26 Discharge Ordered Notes: Location: Home sp3 Condition: Stable sp3 Diagnosis - Abdominal pain, unspecified sp3 Followup: sp3 - With: Private Physician - When: Upon discharge from the Emergency Department - Reason: Continuance of care Discharge Instructions: - Discharge Summary Sheet sp3 - Abdominal Pain, Adult sp3 Forms: - Medication Reconciliation Form sp3 - Thank You Letter sp3 - Antibiotic Education sp3 - Prescription Opioid Use sp3 - Patient Portal Instructions sp3 - Leadership Thank You Letter sp3 Signatures: Dispatcher [employer] Benita Peres Lynsay, RN RN ll1 Sinan Meier MD MD sp3 Ember Leger RN RN nj1
[2023-01-16 12:22] VITALS: BP 134/70; TEMP 97.7; O2SAT 98
== END 2023-01-16 11:55 | disposition home or self-care (01) ==
LOC: ER 08:15
DX: R10.31 Right lower quadrant pain (principal); F31.9 Bipolar disorder, unspecified; Z88.2 Allergy status to sulfonamides
CPT/HCPCS: 96361; 85025; 81001; 36415; 81025; 83690; 80053; 74177; 96360; 99284; Q9967; J7030

== ENCOUNTER → 2023-02-21 | Emergency (ER) | payer OTHER ==
[~2023-02-21] MED LIST: ALPRAZOLAM 1 MG TABLET ONE; METOCLOPRAMIDE 10 MG/2mL INJ ONE; MORPHINE 2 MG/ML SYR ONE; MORPHINE 4 MG/ML SYR ONE; NA CHLORIDE 0.9% 1,000 ML ONE; dexAMETHasone 10 MG/ML VIAL ONE
--- OUTSIDE RECORDS SUMMARY | 2023-02-21 14:51 | XMS REPORT | Continuity of Care Document ---
Author Name Unknown Address [address] [place] [address] [facility] thconnect Address [address] [place] [address] Care Team Providers Care Bean Weigher Name Role Phone [email or web address] Attending Clinician Patti Macias Attending Clinician [phone] Doctor Unassigned, Umbarger Attending Clinician U navailable [email or web address] Admitting Clinician Yancy mcconnell Encounters Start Date/Time End Date/Time Encounter Type Admission Type Attending Clinicians Care Facility Care Department Encounter ID Source 2022-12-20 09:49:08 2022-12-20 09:49:08 Outpatient [facility] [id number] Robert F Viraj 2022-12-10 00:00:00 2022-12-10 00:00:00 Outpatient [email or web address] [facility] [id number] [facility] 2022-10-12 09:56:06 2022-10-12 09:56:06 Outpatient [facility] [id number] Robert Cali 2022-07-24 13:24:12 2022-07-24 13:24:12 Outpatient [facility] [id number] Robert Arnol Viraj 2022-06-27 13:49:18 2022-06-27 13:49:18 Outpatient [facility] [id number] Robert Cali 2022-06-21 08:52:50 2022-06-21 08:52:50 Outpatient [facility] [id number] Robert Cali 2022-06-15 15:23:34 2022-06-15 15:23:34 Outpatient [facility] [id number] Robert Cali 2022-05-30 11:55:27 2022-05-30 11:55:27 Outpatient [facility] [id number] Robert Cali 2022-05-23 11:17:29 2022-05-23 11:17:29 Outpatient [facility] [id number] Robert Cali 2022-05-12 08:06:11 2022-05-12 08:06:11 Outpatient [facility] [id number] Robert Cali 2022-05-11 13:45:44 2022-05-11 13:45:44 Outpatient [facility] [id number] Robert Cali 2020-09-02 16:12:00 2020-09-02 20:21:00 Emergency Milton Patti [facility] [id number] 2020-09-02 00:00:00 2020-09-02 00:00:00 Orders Only Doctor Unassigned, Umbarger [facility] [id number] Results Test Description Test Time Test Comments Results Result Co mments Source RETICULOCYTE WITH [id number] 06:12:05* Test Item Value Reference Range Interpretation Comme nts RETICULOCYTE COUNT (test code = 1018) 2.50 % 0.80-2.40 H ABSOLUTE RETICULOCYTE (test code = 09343) 103.3 K/UL 32.0-105.0 [facility] has important pathology staff changes effective 04/12/2022. New pathology staff will provide uninterrupted, excellent patient care and clinical consultation. See URL: [email or web address]. UNLESS OTHERWISE INDICATED, ALL TESTING PERFORMED AT [facility] [address] [place] [id number] EXHIBITION CARVER: CHARLA HERNANDEZ M.D. CLIA NUMBER [id number] [place]. [id number] YAZMIN NON-REFLEX TO [id number] 05:55:49* Test Item Value Reference Range Interpretation Comme nts ANTI-NUCLEAR ANTIBODIES (test code = 3506) NEGATIVE NEGATIVE METHODOLOGY IS I NDIRECT IMMUNOFLUORESCENT ASSAY (IFA) WITH HUMAN EPITHELIAL (HEP-2) CELL LINE SUBSTRATE. FOLATE, [id number] 12:42:51* Test Item Value Reference Range Interpretation Comme nts HEMATOCRIT (test code = 1004) 28.7 % 34.0-45.0 L FOLATE, RBC (test code = 2690) 1185 NG/ML 499-1504 INTERPRETI VE RANGES DEFICIENCY . . . . . . . . . . . . . . . NG/ML <=150 POSSIBLE DEFICIENCY. . . . . . . . . . . NG/ML 151-498 SUFFICIENT . . . . . . . . . . . . . . . NG/ML 499-1504 EXCESS . . . . . . . . . . . . . . . . . NG/ML >1504 TSH, THIRD [id number] 11:05:54* Test Item Value Reference Range Interpretation Comme nts TSH, THIRD GENERATION (test code = 2821) 1.310 UIU/ML 0.400-4.100 VITAMIN [id number] 11:05:54* Test Item Value Reference Range Interpretation Comme nts VITAMIN B-12 (test code = 2840) 436 PG/ML 200-950 VITAMIN D, 25 [id number] 11:03:45* Test Item Value Reference Range Interpretation Comme nts VITAMIN D, 25 OH (test code = 4958) 13 NG/ML SEE BELOW L EFFECTIVE 10/2022, PLEASE NOTE NEW METHODOLOGY IS ELECTROCHEMILUMINESCENCE BINDING ASSAY. NOTE: 25-HYDROXYVITAMIN D ASSAY INCLUDES 25-HYDROXYVITAMIN D2 AND D3. INTERPRETIVE RANGES PEDIATRIC (<17 YEARS) . . . . . . . . . . . NG/ML 20-100ADULT: INSUFFICIENT . . . . . . . . . . . . . . NG/ML <20 SUBOPTIMAL . . . . . . . . . . . . . . . NG/ML 20-29 OPTIMAL . . . . . . . . . . . . . . . . . NG/ML 30-100 [facility] has important pathology staff changes effective 04/12/2022. New pathology staff will provide uninterrupted, excellent patient care and clinical consultation. See URL: [email or web address]. UNLESS OTHERWISE INDICATED, ALL TESTING PERFORMED AT [facility] [address] [place] [id number] EXHIBITION CARVER: CHARLA HERNANDEZ M.D. CLIA NUMBER [id number] [facility] [place]. [id number] LIPID [id number] 05:28:57* Test Item Value Reference Range Interpretation Comme nts CHOLESTEROL (test code = 2210) 207 MG/DL <200 H TRIGLYCERIDES (test code = 2232) 130 MG/DL <150 HDL CHOLESTEROL (test code = 2220) 45 MG/DL >39 CALC LDL CHOL (test code = 2237) 137 MG/DL <100 H NOTE: CALCULATED LDL IS BASED ON DOMINIQUE-PEREZ METHOD WHICHINCLUDES ADJUSTABLE TRIGLYCERIDE:VLDL CHOLESTEROL RATIO.THIS FACTOR VARIES BY MEASURED TRIGLYCERIDE AND NON-HDLCHOLESTEROL CONCENTRATIONS WITH INCREASED CALCULATED LDL SEENIN HIGHER TRIGLYCERIDE OR LOWER NON-HDL SPECIMENS. FOR MOREINFORMATION, SEE CLIENT ANNOUNCEMENT AT [email or web address] RATIO LDL/HDL (test code = 2238) 3.04 RATIO <3.22 URIC [id number] 05:28:57* Test Item Value Reference Range Interpretation Comme nts URIC ACID (test code = 2233) 6.7 MG/DL 2.7-6.1 H COMPREHENSIVE METABOLIC [id number] 05:28:57* Test Item Value Reference Range Interpretation Comme nts GLUCOSE (test code = 2217) 103 MG/DL 70-99 H BUN (test code = 2208) 9 MG/DL 6-20 CREATININE (test code = 2214) 0.72 MG/DL 0.60-1.30 eGFR (2020 CKD-EPI) (test code = ) 106 ML/MIN/1.73 >60 CALC BUN/CREAT (test code = 2234) 13 RATIO 6-28 SODIUM (test code = 2230) 139 MEQ/L 133-146 POTASSIUM (test code = 2227) 4.5 MEQ/L 3.5-5.4 CHLORIDE (test code = 2214) 104 MEQ/L 95-107 CARBON DIOXIDE (test code = 2205) 24 MEQ/L 19-31 CALCIUM (test code = 2208) 9.5 MG/DL 8.5-10.5 PROTEIN, TOTAL (test code = 2228) 6.5 G/DL 6.1-8.3 ALBUMIN (test code = 2200) 4.4 G/DL 3.5-5.2 CALC GLOBULIN (test code = 2239) 2.1 G/DL 1.9-3.7 CALC A/G RATIO (test code = 2233) 2.1 RATIO 1.0-2.6 BILIRUBIN, TOTAL (test code = 2206) <0.2 MG/DL See_Comment [Automated me ssage] The system which generated this result transmitted reference range: <=1.2. The reference range was not used to interpret this result as normal/abnormal. ALKALINE PHOSPHATASE (test code = 2203) 129 U/L 40-115 H AST (test code = 2217) 21 U/L 9-40 ALT (test code = 2218) 26 U/L 5-40 HEMOGLOBIN [id number] 02:54:46* Test Item Value Reference Range Interpretation Comme nts HEMOGLOBIN A1c (test code = 33774) 5.6 % 4.2-5.6 CBC W/AUTO DIFF WITH [id number] 01:58:18* Test Item Value Reference Range Interpretation Comme nts WBC (test code = 1001) 6.7 K/UL 3.5-11.0 RBC (test code = 1002) 4.06 M/UL 3.80-5.40 HEMOGLOBIN (test code = 1003) 8.8 G/DL 11.5-15.5 L HEMATOCRIT (test code = 1004) 28.7 % 34.0-45.0 L MCV (test code = 1005) 70.7 fL 80.0-99.0 L MCH (test code = 1006) 21.7 PG 25.0-33.0 L MCHC (test code = 1007) 30.7 G/DL 31.0-36.0 L RDW (test code = 1038) 17.1 % 11.5-15.0 H NEUTROPHILS (test code = 1008) 67.9 % LYMPHOCYTES (test code = 1010) 18.5 % MONOCYTES (test code = 1011) 6.4 % EOSINOPHILS (test code = 1012) 6.0 % BASOPHILS (test code = 1013) 0.6 % IMMATURE GRANULOCYTES (test code = 1036) 0.6 % NUCLEATED RBCS (test code = 1065) 0.0 /100 WBC'S See_Comment [Automated [employer] ge] The system which generated this result transmitted reference range: 0.0. The reference range was not used to interpret this result as normal/abnormal. PLATELET COUNT (test code = 1015) 256 K/UL 130-400 ABSOLUTE NEUTROPHILS (test code = 1066) 4.57 K/UL 1.50-7.50 ABSOLUTE LYMPHOCYTES (test code = 1067) 1.24 K/UL 1.00-4.00 ABSOLUTE MONOCYTES (test code = 1068) 0.43 K/UL 0.20-1.00 ABSOLUTE EOSINOPHILS (test code = 1040) 0.40 K/UL 0.00-0.50 ABSOLUTE BASOPHILS (test code = 1069) 0.04 K/UL 0.00-0.20 ABS IMMATURE GRANULOCYTES (test code = 1020) 0.04 K/UL 0.00-0.10 ABS NUCLEATED RBCS (test code = 45735) 0.00 K/UL 0.00-0.11
--- NOTE | 2023-02-21 17:43 | ER ---
Nurse's Notes [facility] Name: Shivani Lagunas Age: 47 yrs Sex: Female : 1975 Arrival Date: 02/21/2023 Time: 14:47 Bed DIS3 Private MD: Diagnosis: Headache;Migraine without aura, not intractable Presentation: 02/21 15:13 Chief complaint: Patient states: HEADACHE AND MUSCLE TIGHTNESS X 1.5 WEEKS. STATES TOOK db KETORLAC AND GABAPENTIN FROM PCP AND NOT HELPING. Coronavirus screen: Vaccine status: Patient reports receiving the 2nd dose of the covid vaccine. Client denies travel out of the [place] in the last 14 days. At this time, the client does not indicate any symptoms associated with coronavirus-19. Ebola Screen: Patient negative for fever greater than or equal to 101.5 degrees Fahrenheit, and additional compatible Ebola Virus Disease symptoms Patient denies exposure to infectious person. Patient denies travel to an Ebola-affected area in the 21 days before illness onset. No symptoms or risks identified at this time. Initial Sepsis Screen: Does the patient meet any 2 criteria? No. Patient's initial sepsis screen is negative. Does the patient have a suspected source of infection? No. Patient's initial sepsis screen is negative. Risk Assessment: Do you want to hurt yourself or someone else? Patient reports no desire to harm self or others. Onset of symptoms was February 21, 2023. 15:13 Method Of Arrival: Ambulatory db 15:13 Acuity: ALICIA 3 db Triage Assessment: 15:15 Headache History: The patient has had previous headaches and this one is similar to db previous episodes. General: Appears in no apparent distress. comfortable, Behavior is calm, cooperative. Pain: Complains of pain in head. Neuro: Level of Consciousness is awake, alert, obeys commands, Oriented to person, place, time, situation. Respiratory: Airway is patent Respiratory effort is even, unlabored, Respiratory pattern is regular, symmetrical. 16:25 Pain:. ll1 18:17 Pain: Pain began 2-3 days ago. Also complains of nausea. 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 - Social history:: Smoking status: Patient denies any tobacco usage or history of. - Family history:: not pertinent. - Hospitalizations: : No recent hospitalization is reported. Screenin:24 [facility] ED Fall Risk Assessment (Adult) Score/Fall Risk Level 0 - 2 = Low Risk ll1 Oriented to surroundings, Maintained a safe environment, Educated pt \T\ family on fall prevention, incl call for assistance when getting out of bed, Hourly rounding (assess needs \T\ fall precautionary measures) done. Abuse screen: Denies threats or abuse. Nutritional screening: No deficits noted. Tuberculosis screening: No symptoms or risk factors identified. Assessment: 16:24 Reassessment: No changes from previously documented assessment. Patient and/or family ll1 updated on plan of care and expected duration. Pain level reassessed. 16:55 Reassessment: No changes from previously documented assessment. Patient and/or family ll1 updated on plan of care and expected duration. Pain level reassessed. Patient states feeling better. 17:55 Reassessment: No changes from previously documented assessment. Patient and/or family ll1 updated on plan of care and expected duration. Pain level reassessed. Patient states feeling better. Pain: Complains of pain in left side of the back of head Pain currently is 2 out of 10 on a pain scale. Quality of pain is described as aching. 18:14 Reassessment: No changes from previously documented assessment. Patient and/or family ll1 updated on plan of care and expected duration. Pain level reassessed. Patient is alert, oriented x 3, equal unlabored respirations, skin warm/dry/pink. Patient states feeling better. Patient states symptoms have improved. Vital Signs: 15:13 BP 135 / 72; Pulse 58; Resp 18; Temp 97.8(TE); Pulse Ox 95% ; Weight 100.24 kg; Height db 5 ft. 6 in. ; 18:09 BP 110 / 58; Pulse 54; Resp 15; Temp 98.1; Pulse Ox 97% on R/A; aw1 15:13 Body Mass Index 35.67 (100.24 kg, 167.64 cm) db [place] Coma Score: 17:42 Eye Response: spontaneous(4). Motor Response: obeys commands(6). Verbal Response: rn oriented(5). Total: 15. ED Course: 14:50 Patient arrived in ED. im 14:56 Jean Carlos Andrews MD is Attending Physician. rn 15:15 Triage completed. db 15:15 Arm band placed on right wrist. Patient placed in waiting room. EKG completed in db triage. Results shown to MD. 16:12 Patient placed in an internal wait recliner, in a wheelchair. ll1 16:15 Provided Education on: ER process and procedures. ll1 16:24 Demi Kearney, RN is Primary Nurse. ll1 16:30 Inserted saline lock: 20 gauge in left antecubital area, using aseptic technique. aw1 18:16 No provider procedures requiring assistance completed. IV discontinued, intact, ll1 bleeding controlled, No redness/swelling at site. Pressure dressing applied. 18:17 Patient has correct armband on for positive identification. Bed in low position. Call ll1 light in reach. Administered Medications: 16:35 Drug: NS 0.9% IV 1000 ml IV at 1000 ml once Route: IV; Rate: 1000 ml; Site: left ll1 antecubital; 18:03 Follow up: IV Status: Completed infusion; IV Intake: 1000ml [facility] 16:35 Drug: morphine IVP or IV 2 mg IVP once over 4 mins {Note: pain 10/10, RASS 0.} Route: ll1 IVP; Infused Over: 4 mins; Site: left antecubital; 18:03 Follow up: Response: No adverse reaction; Pain is decreased; RASS: Alert and Calm (0) [facility] 16:35 Drug: metoCLOPramide IVP 10 mg IVP once; over 1 to 2 minutes Route: IVP; Site: left ll1 antecubital; 18:03 Follow up: Response: No adverse reaction 1 16:36 Drug: Decadron - Dexamethasone IVP 10 mg IVP once Route: IVP; Site: left antecubital; 1 18:04 Follow up: Response: No adverse reaction 1 16:51 Drug: ALPRAZolam PO Tablet 1 mg PO once Route: PO; ll1 18:04 Follow up: Response: No adverse reaction; Anxiety decreased 1 18:03 Drug: morphine IVP or IV 4 mg IVP once over 4 mins Route: IVP; Infused Over: 4 mins; 1 Site: left antecubital; 18:18 Follow up: Response: No adverse reaction; Pain is decreased; RASS: Alert and Calm (0) 1 Medication: 16:24 VIS not applicable for this client. 1 Intake: 18:03 IV: 1000ml; Total: 1000ml. 1 Outcome: 17:43 Discharge ordered by . rn 18:16 Discharged to home ambulatory, [facility] 18:16 Condition: stable 18:16 Discharge instructions given to patient, Instructed on discharge instructions, follow up and referral plans. Demonstrated understanding of instructions, follow-up care, driving home 18:18 Patient left the ED. 1 Signatures: Jean Carlos Andrews MD MD rn Lewis, Lynsay, RN RN [facility] Autumn Peres RN RN Rohini Ramires Alyssa [facility]
--- NOTE | 2023-02-21 17:43 | EDPHYS ---
Physician Documentation [facility] Name: Shivani Lagunas Age: 47 yrs Sex: Female : 1975 Arrival Date: 02/21/2023 Time: 14:47 Bed DIS3 Private MD: ED Physician Jean Carlos Andrews HPI: 02/21 16:12 This 47 yrs old Female presents to ER via Ambulatory with complaints of rn Headache. 16:12 The patient complains of pain to the left side of the back of head, left occipital area rn and left base of the skull. The patient describes the headache as aching, throbbing. Onset: The symptoms/episode began/occurred 1 week(s) ago. Associated signs and symptoms: Pertinent negatives: altered mental status, fever, neck stiffness, rash, vision loss. Severity of symptoms: At its worst the pain was moderate, "similar to past headaches", in the emergency department the pain is unchanged. The symptoms are alleviated by nothing. the symptoms are aggravated by lights, noise. The patient has experienced similar episodes in the past. Patient reports chronic headaches, has seen neurology and has had negative CAT scans before. Has outpatient MRI scheduled coming up. Patient reports headache overall is similar to previous ones but this 1 is not aborting. Has tried some of her daughters pain medication as well without alleviation of symptoms. No focal neurological deficits. Denies any new symptoms. Came in today for pain control. Does not give story of any new components or acute changes in her headache. 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 - Social history:: Smoking status: Patient denies any tobacco usage or history of. - Family history:: not pertinent. - Hospitalizations: : No recent hospitalization is reported. ROS: 16:12 Constitutional: Negative for fever, chills, and weight loss, Eyes: Negative for injury, rn pain, redness, and discharge, Neck: Negative for injury, pain, and swelling, Cardiovascular: Negative for chest pain, palpitations, and edema, Respiratory: Negative for shortness of breath, cough, wheezing, and pleuritic chest pain, Abdomen/GI: Negative for abdominal pain, nausea, vomiting, diarrhea, and constipation, MS/Extremity: Negative for injury and deformity, Skin: Negative for injury, rash, and discoloration, Neuro: Positive headache and generalized weakness and malaise Exam: 16:12 Constitutional: This is a well developed, well nourished patient who is awake, alert, rn and in no acute distress. Ambulatory to triage in chair without difficulty or assistance Head/Face: Normocephalic, atraumatic. Eyes: Periorbital areas with no swelling, redness, or edema. Neck: Trachea midline, no masses palpated, and no cervical lymphadenopathy. Supple, full range of motion without nuchal rigidity, or vertebral point tenderness. No Meningismus. Cardiovascular: Regular rate and rhythm. No pulse deficits. Respiratory: No increased work of breathing, no retractions or nasal flaring. Abdomen/GI: Soft, non-tender MS/ Extremity: Pulses equal, no cyanosis. Neurovascular intact. Full, normal range of motion. Equal circumference. Neuro: Awake and alert, GCS 15, oriented to person, place, time, and situation. Cranial nerves II-XII grossly intact. Motor strength 5/5 in all extremities. Sensory grossly intact. Cerebellar exam normal. Normal gait. Vital Signs: 15:13 BP 135 / 72; Pulse 58; Resp 18; Temp 97.8(TE); Pulse Ox 95% ; Weight 100.24 kg; Height db 5 ft. 6 in. ; 18:09 BP 110 / 58; Pulse 54; Resp 15; Temp 98.1; Pulse Ox 97% on R/A; aw1 15:13 Body Mass Index 35.67 (100.24 kg, 167.64 cm) db [place] Coma Score: 17:42 Eye Response: spontaneous(4). Motor Response: obeys commands(6). Verbal Response: rn oriented(5). Total: 15. MDM: 14:56 Patient medically screened. rn 17:42 Differential diagnosis: hypertensive headache, migraine, tension headache, vasomotor rn headache. Data reviewed: vital signs, nurses notes, old medical records, and as a result, I will discharge patient. Counseling: I had a detailed discussion with the patient and/or guardian regarding the historical points, exam findings, and any diagnostic results supporting the discharge/admit diagnosis, the need for outpatient follow up, to return to the emergency department if symptoms worsen or persist or if there are any questions or concerns that arise at home. Response to treatment: the patient's symptoms have markedly improved after treatment, and as a result, I will discharge patient. Special discussion: I discussed with the patient/guardian in detail that at this point there is no indication for admission to the hospital. It is understood, however, that if the symptoms persist or worsen the patient needs to return immediately for re-evaluation. Based on the history and exam findings, there is no indication for further emergent testing or inpatient evaluation. I discussed with the patient/guardian the need to see the neurologist for further evaluation of the symptoms. ED course: Patient has improved, will give another dose of pain medication and has ride home. Has seen neurology with multiple workups and is going to complete workup with MRI coming up soon. Will discharge home with return precautions as no new or changing symptoms present compared to her previous headaches and migraines.. 02/21 15:31 Order name: IV Start; Complete Time: 16:24 rn Administered Medications: 16:35 Drug: NS 0.9% IV 1000 ml IV at 1000 ml once Route: IV; Rate: 1000 ml; Site: left ll1 antecubital; 18:03 Follow up: IV Status: Completed infusion; IV Intake: 1000ml [facility] 16:35 Drug: morphine IVP or IV 2 mg IVP once over 4 mins {Note: pain 10/10, RASS 0.} Route: ll1 IVP; Infused Over: 4 mins; Site: left antecubital; 18:03 Follow up: Response: No adverse reaction; Pain is decreased; RASS: Alert and Calm (0) [facility] 16:35 Drug: metoCLOPramide IVP 10 mg IVP once; over 1 to 2 minutes Route: IVP; Site: left ll1 antecubital; 18:03 Follow up: Response: No adverse reaction [facility] 16:36 Drug: Decadron - Dexamethasone IVP 10 mg IVP once Route: IVP; Site: left antecubital; [facility] 18:04 Follow up: Response: No adverse reaction [facility] 16:51 Drug: ALPRAZolam PO Tablet 1 mg PO once Route: PO; 1 18:04 Follow up: Response: No adverse reaction; Anxiety decreased ll1 18:03 Drug: morphine IVP or IV 4 mg IVP once over 4 mins Route: IVP; Infused Over: 4 mins; ll1 Site: left antecubital; 18:18 Follow up: Response: No adverse reaction; Pain is decreased; RASS: Alert and Calm (0) ll1 Disposition Summary: 02/21/23 17:43 Discharge Ordered Notes: Location: Home rn Problem: chronic rn Symptoms: have improved rn Condition: Stable rn Diagnosis - Headache rn - Migraine without aura, not intractable rn Followup: rn - With: Private Physician - When: As needed - Reason: Recheck today's complaints, Re-evaluation by your physician Discharge Instructions: - Discharge Summary Sheet rn - General Headache Without Cause rn - Migraine Headache rn Forms: - Medication Reconciliation Form rn - Thank You Letter rn - Antibiotic rn gyn - Prescription Opioid Use rn - Patient Portal Instructions rn - Leadership Thank You Letter rn Signatures: Jean Carlos Andrews MD MD rn Lewis, Lynsay, RN RN 1 Autumn Peres RN RN db
[2023-02-21 21:18] VITALS: BP 110/58; TEMP 98.1; O2SAT 97
== END ==
LOC: ER 14:47
DX: G43.009 Migraine without aura, not intractable, without status migrainosus (principal); Z88.2 Allergy status to sulfonamides
CPT/HCPCS: 96361; 96375; 96374; 99284; J2765; J1100; J2270; J7030

== ENCOUNTER 2023-03-09 22:17 | Observation (INO) | payer OTHER ==
[2023-03-09] MEDS ORDERED: ASPIRIN 81 MG CHEWABLE TABLET ONE (22:30)
--- OUTSIDE RECORDS SUMMARY | 2023-03-09 22:38 | XMS REPORT | Continuity of Care Document ---
Author Name Unknown Address [address] [place] [address] [facility] thconnect Address [address] [place] [address] Care Team Providers Care Trace Evidence Technician Name Role Phone Jae Holloway Primary Care Physician [phone] Consuelo BAUER, Elidia Gamble Attending Clinician [phone] SARA HESTER Attending Clinician UnavailSARA Dorado Attending Clinician UnavailJewel Forbes MD Attending Clinician [phone] c-Lab Attending Clinician Unavailable JEWEL CUNHA Attending Clinician Unavaila JENNY Norton Attending Clinician Unavailable JENNY ARRIAGA Attending Clinician Unavailable Dexter Dias MD Attending Clinician [phone] Davidson Sutherland MD Attending Clinician [phone] Pcp-Lab Attending Clinician Unavailable DEXTER DIAS Attending Clinician Unavailable Doctor Unassigned, Hurricane Attending Clinician U Dominic Whitley MD Attending Clinician [phone] [email or web address]_S Attending Clinician Unavaila ONEIDA Del Rosario Attending Clinician Unavailable DOMINIC KEITA Attending Clinician Unavailchris Cruz MD, Hunter Attending Clinician [phone] Tnig Grissom MD Attending Clinician [phone] RADIOLOGY Attending Clinician Unavailable DORA NEWMAN Attending Clinician Unavailable Deloirs HOLLOWAY, Dora Pope Attending Clinician [phone] Ru BAUER, Kath Attending Clinician [phone] Pob, Adc Lab Main Attending Clinician UnavailKATH Grady Attending Clinician Unavailchris russell Pathology Attending Clinician Unavailable IGOR SAAVEDRA Attending Clinician Unavaila DAVIDSON Huerta Attending Clinician Unavailable HILARY MOORE Attending Clinician Unavaila HILARY Ramires Attending Clinician Unavaila Igor mcconnell Rai, MD Attending Clinician Unava ilable GIGI MONROY Attending Clinician Unavailable Gigi Monroy DO Attending Clinician +[phone] Zane Martinez MD Attending Clinician [phone] Deonte Aviles Attending Clinician Unavailable UNKNOWN, ATTENDING Attending Clinician Unavailab SALLY Cash Attending Clinician Unavail able SALLY MITCHELL Attending Clinician Unavail able Salbador Lockwood MD Attending Clinician + SALBADOR LOCKWOOD Attending Clinician Unavailable HALIMA CONNOR Attending Clinician Unavailab Halima Choi DO Attending Clinician [phone] ROBERT NOWAK Attending Clinician Unavail able Patti Hutton Attending Clinician [phone] CRISTO MARTINEZ Attending Clinician Unavail able JEWEL MORAES Attending Clinician Unava ilKATH Dave Attending Clinician Unav ANGELA Richardson Attending Clinician Unavailab cholo [email or web address]_S Admitting Clinician Unavaila DOMINIC Watts Admitting Clinician Unavailchris Keita MD, Dominic Admitting Clinician [phone] Payers Payer Name Policy Type Policy Number Effective Date Expirati on Date Source MEDICAID SSI PENDING PENDING 2021 00:00:00 Problems Condition Name Condition Details Condition Category Status Onset Date Resolution Date Last Treatment Date Treating Clinician Comments Source Iron deficiency anemia due to chronic blood loss Iron deficiency anemia due to chronic blood loss Disease Active 10-19 00:00: 00 [facility] Gastroesop hageal reflux disease, unspecifie d whether esophagiti s present Gastroesop hageal reflux disease, unspecifie d whether esophagiti s present Disease Active 10-19 00:00: 00 [facility] Arrhythmia Arrhythmia Disease Active 10-18 00:00: 00 [facility] Anemia Anemia Disease Active 02-17 00:00: 00 [facility] Bipolar 1 disorder, depressed Bipolar 1 disorder, depressed Disease Active 2019-02 00:00: 00 [facility] Gout Gout Disease Active 08-17 00:00: 00 [facility] Severe headache Severe headache Disease Active 1998-02 00:00: 00 [facility] Insomnia disorder Insomnia disorder Disease Active 1989-02 00:00: 00 [facility] Anxiety Anxiety Disease Active 10-18 00:00: 00 [facility] No known active problems No known active problems Disease [facility] Allergies, Adverse Reactions, Alerts Allergy Name Allergy Type Status Severity Reaction(s) Onset Date Inactive Date Treating Clinician Comments Source Sulfa (Sulfona mide Antibiot ics) Propensi ty to adverse reaction s Active Hives 06-05 00:00: 00 [facility] SULFA (SULFONA MIDE ANTIBIOT ICS) Drug Class Active Hives 06-05 00:00: 00 [facility] Social History Social Habit Start Date Stop Date Quantity Comments Source Gender identity [facility] 2023-01-22 00:00:00 2023-01-22 00:00:00 [facility] Exposure to SARS-CoV-2 (event) 2022-02-05 00:00:00 2022-02-15 08:57:00 Not sure [facility] Tobacco use and exposure 2021-08-24 00:00:00 2021-08-24 00:00:00 Smokeless tobacco non-user [facility] Sex Assigned At 1975 00:00:00 1975 00:00:00 [facility] Smoking Status Start Date Stop Date Source Never smoked tobacco [facility] Medications Ordered Medication Name Filled Medication Name Start Date Stop Date Current Medication? Ordering Clinician Indication Dosage Frequency Signature (SIG) Comments Components Source DULoxetine 60 mg capsule 03-07 00:00: 00 Yes [id number] 60mg Take 1 capsule by mouth in the morning and 1 capsule in the evening. [facility] DULoxetine 60 mg capsule 03-07 00:00: 00 Yes [id number] 60mg Take 1 capsule by mouth in the morning and 1 capsule in the evening. [facility] DULoxetine 60 mg capsule 03-07 00:00: 00 Yes [id number] 60mg Take 1 capsule by mouth in the morning and 1 capsule in the evening. [facility] DULoxetine 60 mg capsule 03-07 00:00: 00 Yes [id number] 60mg Take 1 capsule by mouth in the morning and 1 capsule in the evening. [facility] losartan potassium (LOSARTAN ORAL) 02-15 09:55: 13 Yes 20mg Take 20 mg by mouth. [facility] propranolol 80 mg tablet 02-15 09:55: 13 Yes 80mg Take 1 tablet by mouth in the morning and 1 tablet in the evening. [facility] allopurinoL 100 mg tablet 02-15 09:55: 13 Yes 100mg Take 1 tablet by mouth in the morning. [facility] losartan potassium (LOSARTAN ORAL) 02-15 09:55: 13 Yes 20mg Take 20 mg by mouth. [facility] propranolol 80 mg tablet 02-15 09:55: 13 Yes 80mg Take 1 tablet by mouth in the morning and 1 tablet in the evening. [facility] allopurinoL 100 mg tablet 02-15 09:55: 13 Yes 100mg Take 1 tablet by mouth in the morning. [facility] losartan potassium (LOSARTAN ORAL) 02-15 09:55: 13 Yes 20mg Take 20 mg by mouth. [facility] propranolol 80 mg tablet 02-15 09:55: 13 Yes 80mg Take 1 tablet by mouth in the morning and 1 tablet in the evening. [facility] allopurinoL 100 mg tablet 02-15 09:55: 13 Yes 100mg Take 1 tablet by mouth in the morning. [facility] losartan potassium (LOSARTAN ORAL) 02-15 09:55: 13 Yes 20mg Take 20 mg by mouth. [facility] propranolol 80 mg tablet 02-15 09:55: 13 Yes 80mg Take 1 tablet by mouth in the morning and 1 tablet in the evening. [facility] allopurinoL 100 mg tablet 02-15 09:55: 13 Yes 100mg Take 1 tablet by mouth in the morning. [facility] losartan potassium (LOSARTAN ORAL) 02-15 09:55: 13 Yes 20mg Take 20 mg by mouth. [facility] propranolol 80 mg tablet 02-15 09:55: 13 Yes 80mg Take 1 tablet by mouth in the morning and 1 tablet in the evening. [facility] allopurinoL 100 mg tablet 02-15 09:55: 13 Yes 100mg Take 1 tablet by mouth in the morning. [facility] losartan potassium (LOSARTAN ORAL) 02-15 09:55: 13 Yes 20mg Take 20 mg by mouth. [facility] propranolol 80 mg tablet 0 02-15 09:55: 13 Yes 80mg Take 1 tablet by mouth in the morning and 1 tablet in the evening. [facility] allopurinoL 100 mg tablet 0 02-15 09:55: 13 Yes 100mg Take 1 tablet by mouth in the morning. [facility] losartan potassium (LOSARTAN ORAL) 02-15 09:55: 13 Yes 20mg Take 20 mg by mouth. [facility] propranolol 80 mg tablet 02-15 09:55: 13 Yes 80mg Take 1 tablet by mouth in the morning and 1 tablet in the evening. [facility] allopurinoL 100 mg tablet 02-15 09:55: 13 Yes 100mg Take 1 tablet by mouth in the morning. [facility] losartan potassium (LOSARTAN ORAL) 02-15 09:55: 13 Yes 20mg Take 20 mg by mouth. [facility] propranolol 80 mg tablet 02-15 09:55: 13 Yes 80mg Take 1 tablet by mouth in the morning and 1 tablet in the evening. [facility] allopurinoL 100 mg tablet 02-15 09:55: 13 Yes 100mg Take 1 tablet by mouth in the morning. [facility] losartan potassium (LOSARTAN ORAL) 02-15 09:55: 13 Yes 20mg Take 20 mg by mouth. [facility] propranolol 80 mg tablet 02-15 09:55: 13 Yes 80mg Take 1 tablet by mouth in the morning and 1 tablet in the evening. [facility] allopurinoL 100 mg tablet 02-15 09:55: 13 Yes 100mg Take 1 tablet by mouth in the morning. [facility] busPIRone 10 mg tablet 2022-02 00:00: 00 Yes [id number] 20mg Take 2 tablets by mouth in the morning and 2 tablets in the evening. [facility] clonazePAM 1 mg tablet 2022-02 00:00: 00 Yes [id number] Take half to 1 tablet by mouth once daily as needed for extreme anxiety. Attempt to minimize use. [facility] DULoxetine 60 mg capsule 2022-02 00:00: 00 Yes [id number] 60mg Take 1 capsule by mouth in the morning and 1 capsule in the evening. [facility] lamoTRIgine 100 mg tablet 2022-02 00:00: 00 Yes [id number] 100mg Take 1 tablet by mouth in the morning and 1 tablet in the evening. [facility] traZODone 50 mg tablet 2022-02 00:00: 00 Yes [id number] 50mg Take 1 tablet by mouth at bedtime. May cut tablet in half. [facility] lithium carbonate CR 450 mg SR tablet 2022-02 00:00: 00 Yes [id number] 900mg Take 2 tablets by mouth at bedtime. [facility] busPIRone 10 mg tablet 2022-02 00:00: 00 Yes [id number] 20mg Take 2 tablets by mouth in the morning and 2 tablets in the evening. [facility] clonazePAM 1 mg tablet 2022-02 00:00: 00 Yes [id number] Take half to 1 tablet by mouth once daily as needed for extreme anxiety. Attempt to minimize use. [facility] DULoxetine 60 mg capsule 2022-02 00:00: 00 Yes [id number] 60mg Take 1 capsule by mouth in the morning and 1 capsule in the evening. [facility] lamoTRIgine 100 mg tablet 2022-02 00:00: 00 Yes [id number] 100mg Take 1 tablet by mouth in the morning and 1 tablet in the evening. [facility] traZODone 50 mg tablet 2022-02 00:00: 00 Yes [id number] 50mg Take 1 tablet by mouth at bedtime. May cut tablet in half. [facility] lithium carbonate CR 450 mg SR tablet 2022-02 00:00: 00 Yes [id number] 900mg Take 2 tablets by mouth at bedtime. [facility] busPIRone 10 mg tablet 2022-02 00:00: 00 Yes [id number] 20mg Take 2 tablets by mouth in the morning and 2 tablets in the evening. [facility] clonazePAM 1 mg tablet 2022-02 00:00: 00 Yes [id number] Take half to 1 tablet by mouth once daily as needed for extreme anxiety. Attempt to minimize use. [facility] DULoxetine 60 mg capsule 2022-02 00:00: 00 Yes [id number] 60mg Take 1 capsule by mouth in the morning and 1 capsule in the evening. [facility] lamoTRIgine 100 mg tablet 2022-02 00:00: 00 Yes [id number] 100mg Take 1 tablet by mouth in the morning and 1 tablet in the evening. [facility] traZODone 50 mg tablet 2022-02 00:00: 00 Yes [id number] 50mg Take 1 tablet by mouth at bedtime. May cut tablet in half. [facility] lithium carbonate CR 450 mg SR tablet 2022-02 00:00: 00 Yes [id number] 900mg Take 2 tablets by mouth at bedtime. [facility] busPIRone 10 mg tablet 2022-02 00:00: 00 Yes [id number] 20mg Take 2 tablets by mouth in the morning and 2 tablets in the evening. [facility] clonazePAM 1 mg tablet 2022-02 00:00: 00 Yes [id number] Take half to 1 tablet by mouth once daily as needed for extreme anxiety. Attempt to minimize use. [facility] DULoxetine 60 mg capsule 2022-02 00:00: 00 Yes [id number] 60mg Take 1 capsule by mouth in the morning and 1 capsule in the evening. [facility] lamoTRIgine 100 mg tablet 2022-02 00:00: 00 Yes [id number] 100mg Take 1 tablet by mouth in the morning and 1 tablet in the evening. [facility] traZODone 50 mg tablet 2022-02 00:00: 00 Yes [id number] 50mg Take 1 tablet by mouth at bedtime. May cut tablet in half. [facility] lithium carbonate CR 450 mg SR tablet 2022-02 00:00: 00 Yes [id number] 900mg Take 2 tablets by mouth at bedtime. [facility] busPIRone 10 mg tablet 2022-02 00:00: 00 Yes [id number] 20mg Take 2 tablets by mouth in the morning and 2 tablets in the evening. [facility] clonazePAM 1 mg tablet 2022-02 00:00: 00 Yes [id number] Take half to 1 tablet by mouth once daily as needed for extreme anxiety. Attempt to minimize use. [facility] DULoxetine 60 mg capsule 2022-02 00:00: 00 Yes [id number] 60mg Take 1 capsule by mouth in the morning and 1 capsule in the evening. [facility] lamoTRIgine 100 mg tablet 2022-02 00:00: 00 Yes [id number] 100mg Take 1 tablet by mouth in the morning and 1 tablet in the evening. [facility] traZODone 50 mg tablet 2022-02 00:00: 00 Yes [id number] 50mg Take 1 tablet by mouth at bedtime. May cut tablet in half. [facility] lithium carbonate CR 450 mg SR tablet 2022-02 00:00: 00 Yes [id number] 900mg Take 2 tablets by mouth at bedtime. [facility] busPIRone 10 mg tablet 2022-02 00:00: 00 Yes [id number] 20mg Take 2 tablets by mouth in the morning and 2 tablets in the evening. [facility] clonazePAM 1 mg tablet 2022-02 00:00: 00 Yes [id number] Take half to 1 tablet by mouth once daily as needed for extreme anxiety. Attempt to minimize use. [facility] DULoxetine 60 mg capsule 2022-02 00:00: 00 Yes [id number] 60mg Take 1 capsule by mouth in the morning and 1 capsule in the evening. [facility] lamoTRIgine 100 mg tablet 2022-02 00:00: 00 Yes [id number] 100mg Take 1 tablet by mouth in the morning and 1 tablet in the evening. [facility] traZODone 50 mg tablet 2022-02 00:00: 00 Yes [id number] 50mg Take 1 tablet by mouth at bedtime. May cut tablet in half. [facility] lithium carbonate CR 450 mg SR tablet 2022-02 00:00: 00 Yes [id number] 900mg Take 2 tablets by mouth at bedtime. [facility] busPIRone 10 mg tablet 2022-02 00:00: 00 Yes [id number] 20mg Take 2 tablets by mouth in the morning and 2 tablets in the evening. [facility] clonazePAM 1 mg tablet 2022-02 00:00: 00 Yes [id number] Take half to 1 tablet by mouth once daily as needed for extreme anxiety. Attempt to minimize use. [facility] DULoxetine 60 mg capsule 2022-02 00:00: 00 Yes [id number] 60mg Take 1 capsule by mouth in the morning and 1 capsule in the evening. [facility] lamoTRIgine 100 mg tablet 2022-02 00:00: 00 Yes [id number] 100mg Take 1 tablet by mouth in the morning and 1 tablet in the evening. [facility] traZODone 50 mg tablet 2022-02 00:00: 00 Yes [id number] 50mg Take 1 tablet by mouth at bedtime. May cut tablet in half. [facility] lithium carbonate CR 450 mg SR tablet 2022-02 00:00: 00 Yes [id number] 900mg Take 2 tablets by mouth at bedtime. [facility] busPIRone 10 mg tablet 2022-02 00:00: 00 Yes [id number] 20mg Take 2 tablets by mouth in the morning and 2 tablets in the evening. [facility] clonazePAM 1 mg tablet 2022-02 00:00: 00 Yes [id number] Take half to 1 tablet by mouth once daily as needed for extreme anxiety. Attempt to minimize use. [facility] DULoxetine 60 mg capsule 2022-02 00:00: 00 Yes [id number] 60mg Take 1 capsule by mouth in the morning and 1 capsule in the evening. [facility] lamoTRIgine 100 mg tablet 2022-02 00:00: 00 Yes [id number] 100mg Take 1 tablet by mouth in the morning and 1 tablet in the evening. [facility] traZODone 50 mg tablet 2022-02 00:00: 00 Yes [id number] 50mg Take 1 tablet by mouth at bedtime. May cut tablet in half. [facility] lithium carbonate CR 450 mg SR tablet 2022-02 00:00: 00 Yes [id number] 900mg Take 2 tablets by mouth at bedtime. [facility] busPIRone 10 mg tablet 2022-02 00:00: 00 Yes [id number] 20mg Take 2 tablets by mouth in the morning and 2 tablets in the evening. [facility] clonazePAM 1 mg tablet 2022-02 00:00: 00 Yes [id number] Take half to 1 tablet by mouth once daily as needed for extreme anxiety. Attempt to minimize use. [facility] DULoxetine 60 mg capsule 2022-02 00:00: 00 Yes [id number] 60mg Take 1 capsule by mouth in the morning and 1 capsule in the evening. [facility] lamoTRIgine 100 mg tablet 2022-02 00:00: 00 Yes [id number] 100mg Take 1 tablet by mouth in the morning and 1 tablet in the evening. [facility] traZODone 50 mg tablet 2022-02 00:00: 00 Yes [id number] 50mg Take 1 tablet by mouth at bedtime. May cut tablet in half. [facility] lithium carbonate CR 450 mg SR tablet 2022-02 00:00: 00 Yes [id number] 900mg Take 2 tablets by mouth at bedtime. [facility] busPIRone 10 mg tablet 2022-02 00:00: 00 Yes [id number] 20mg Take 2 tablets by mouth in the morning and 2 tablets in the evening. [facility] clonazePAM 1 mg tablet 2022-02 00:00: 00 Yes [id number] Take half to 1 tablet by mouth once daily as needed for extreme anxiety. Attempt to minimize use. [facility] DULoxetine 60 mg capsule 2022-02 00:00: 00 Yes [id number] 60mg Take 1 capsule by mouth in the morning and 1 capsule in the evening. [facility] lamoTRIgine 100 mg tablet 2022-02 00:00: 00 Yes [id number] 100mg Take 1 tablet by mouth in the morning and 1 tablet in the evening. [facility] traZODone 50 mg tablet 2022-02 00:00: 00 Yes [id number] 50mg Take 1 tablet by mouth at bedtime. May cut tablet in half. [facility] lithium carbonate CR 450 mg SR tablet 2022-02 00:00: 00 Yes [id number] 900mg Take 2 tablets by mouth at bedtime. [facility] busPIRone 10 mg tablet 2022-02 00:00: 00 Yes [id number] 20mg Take 2 tablets by mouth in the morning and 2 tablets in the evening. [facility] clonazePAM 1 mg tablet 2022-02 00:00: 00 Yes [id number] Take half to 1 tablet by mouth once daily as needed for extreme anxiety. Attempt to minimize use. [facility] DULoxetine 60 mg capsule 2022-02 00:00: 00 Yes [id number] 60mg Take 1 capsule by mouth in the morning and 1 capsule in the evening. [facility] lamoTRIgine 100 mg tablet 2022-02 00:00: 00 Yes [id number] 100mg Take 1 tablet by mouth in the morning and 1 tablet in the evening. [facility] traZODone 50 mg tablet 2022-02 00:00: 00 Yes [id number] 50mg Take 1 tablet by mouth at bedtime. May cut tablet in half. [facility] lithium carbonate CR 450 mg SR tablet 2022-02 00:00: 00 Yes [id number] 900mg Take 2 tablets by mouth at bedtime. [facility] busPIRone 10 mg tablet 2022-02 00:00: 00 Yes [id number] 20mg Take 2 tablets by mouth in the morning and 2 tablets in the evening. [facility] clonazePAM 1 mg tablet 2022-02 00:00: 00 Yes [id number] Take half to 1 tablet by mouth once daily as needed for extreme anxiety. Attempt to minimize use. [facility] lamoTRIgine 100 mg tablet 2022-02 00:00: 00 Yes [id number] 100mg Take 1 tablet by mouth in the morning and 1 tablet in the evening. [facility] traZODone 50 mg tablet 2022-02 00:00: 00 Yes [id number] 50mg Take 1 tablet by mouth at bedtime. May cut tablet in half. [facility] lithium carbonate CR 450 mg SR tablet 2022-02 00:00: 00 Yes [id number] 900mg Take 2 tablets by mouth at bedtime. [facility] busPIRone 10 mg tablet 2022-02 00:00: 00 Yes [id number] 20mg Take 2 tablets by mouth in the morning and 2 tablets in the evening. [facility] clonazePAM 1 mg tablet 2022-02 00:00: 00 Yes [id number] Take half to 1 tablet by mouth once daily as needed for extreme anxiety. Attempt to minimize use. [facility] lamoTRIgine 100 mg tablet 2022-02 00:00: 00 Yes [id number] 100mg Take 1 tablet by mouth in the morning and 1 tablet in the evening. [facility] traZODone 50 mg tablet 2022-02 00:00: 00 Yes [id number] 50mg Take 1 tablet by mouth at bedtime. May cut tablet in half. [facility] lithium carbonate CR 450 mg SR tablet 2022-02 00:00: 00 Yes [id number] 900mg Take 2 tablets by mouth at bedtime. [facility] busPIRone 10 mg tablet 2022-02 00:00: 00 Yes [id number] 20mg Take 2 tablets by mouth in the morning and 2 tablets in the evening. [facility] clonazePAM 1 mg tablet 2022-02 00:00: 00 Yes [id number] Take half to 1 tablet by mouth once daily as needed for extreme anxiety. Attempt to minimize use. [facility] lamoTRIgine 100 mg tablet 2022-02 00:00: 00 Yes [id number] 100mg Take 1 tablet by mouth in the morning and 1 tablet in the evening. [facility] traZODone 50 mg tablet 2022-02 00:00: 00 Yes [id number] 50mg Take 1 tablet by mouth at bedtime. May cut tablet in half. [facility] lithium carbonate CR 450 mg SR tablet 2022-02 00:00: 00 Yes [id number] 900mg Take 2 tablets by mouth at bedtime. [facility] busPIRone 10 mg tablet 2022-02 00:00: 00 Yes [id number] 20mg Take 2 tablets by mouth in the morning and 2 tablets in the evening. [facility] clonazePAM 1 mg tablet 2022-02 00:00: 00 Yes [id number] Take half to 1 tablet by mouth once daily as needed for extreme anxiety. Attempt to minimize use. [facility] lamoTRIgine 100 mg tablet 2022-02 00:00: 00 Yes [id number] 100mg Take 1 tablet by mouth in the morning and 1 tablet in the evening. [facility] traZODone 50 mg tablet 2022-02 00:00: 00 Yes [id number] 50mg Take 1 tablet by mouth at bedtime. May cut tablet in half. [facility] lithium carbonate CR 450 mg SR tablet 2022-02 00:00: 00 Yes [id number] 900mg Take 2 tablets by mouth at bedtime. [facility] DULoxetine 60 mg capsule 2022-02 00:00: 00 03-07 00:00 :00 No [id number] 60mg Take 1 capsule by mouth in the morning and 1 capsule in the evening. [facility] busPIRone 15 mg tablet 2022-02 00:00: 00 Yes [id number] 15mg Take 1 tablet by mouth in the morning and 1 tablet in the evening. [facility] lithium carbonate CR 450 mg SR tablet 2022-02 00:00: 00 Yes [id number] 900mg Take 2 tablets by mouth at bedtime. [facility] traZODone 50 mg tablet 2022-02 00:00: 00 Yes [id number] 50mg Take 1 tablet by mouth at bedtime. May cut tablet in half. [facility] DULoxetine 60 mg capsule 2022-02 00:00: 00 Yes [id number] 60mg Take 1 capsule by mouth in the morning and 1 capsule in the evening. [facility] lamoTRIgine 100 mg tablet 2022-02 00:00: 00 Yes [id number] 100mg Take 1 tablet by mouth in the morning and 1 tablet in the evening. [facility] clonazePAM 1 mg tablet 2022-02 00:00: 00 Yes [id number] Take 1 tablet by mouth once daily as needed for extreme anxiety. Attempt to minimize use. [facility] busPIRone 15 mg tablet 2022-02 00:00: 00 Yes [id number] 15mg Take 1 tablet by mouth in the morning and 1 tablet in the evening. [facility] lithium carbonate CR 450 mg SR tablet 2022-02 00:00: 00 Yes [id number] 900mg Take 2 tablets by mouth at bedtime. [facility] traZODone 50 mg tablet 2022-02 00:00: 00 Yes [id number] 50mg Take 1 tablet by mouth at bedtime. May cut tablet in half. [facility] DULoxetine 60 mg capsule 2022-02 00:00: 00 Yes [id number] 60mg Take 1 capsule by mouth in the morning and 1 capsule in the evening. [facility] lamoTRIgine 100 mg tablet 2022-02 00:00: 00 Yes [id number] 100mg Take 1 tablet by mouth in the morning and 1 tablet in the evening. [facility] clonazePAM 1 mg tablet 2022-02 00:00: 00 Yes [id number] Take 1 tablet by mouth once daily as needed for extreme anxiety. Attempt to minimize use. [facility] busPIRone 15 mg tablet 2022-02 00:00: 00 Yes [id number] 15mg Take 1 tablet by mouth in the morning and 1 tablet in the evening. [facility] lithium carbonate CR 450 mg SR tablet 2022-02 00:00: 00 Yes [id number] 900mg Take 2 tablets by mouth at bedtime. [facility] traZODone 50 mg tablet 2022-02 00:00: 00 Yes [id number] 50mg Take 1 tablet by mouth at bedtime. May cut tablet in half. [facility] DULoxetine 60 mg capsule 2022-02 00:00: 00 Yes [id number] 60mg Take 1 capsule by mouth in the morning and 1 capsule in the evening. [facility] lamoTRIgine 100 mg tablet 2022-02 00:00: 00 Yes [id number] 100mg Take 1 tablet by mouth in the morning and 1 tablet in the evening. [facility] clonazePAM 1 mg tablet 2022-02 00:00: 00 Yes [id number] Take 1 tablet by mouth once daily as needed for extreme anxiety. Attempt to minimize use. [facility] busPIRone 15 mg tablet 2022-02 00:00: 00 Yes [id number] 15mg Take 1 tablet by mouth in the morning and 1 tablet in the evening. [facility] lithium carbonate CR 450 mg SR tablet 2022-02 00:00: 00 Yes [id number] 900mg Take 2 tablets by mouth at bedtime. [facility] traZODone 50 mg tablet 2022-02 00:00: 00 Yes [id number] 50mg Take 1 tablet by mouth at bedtime. May cut tablet in half. [facility] DULoxetine 60 mg capsule 2022-02 00:00: 00 Yes [id number] 60mg Take 1 capsule by mouth in the morning and 1 capsule in the evening. [facility] lamoTRIgine 100 mg tablet 2022-02 00:00: 00 Yes [id number] 100mg Take 1 tablet by mouth in the morning and 1 tablet in the evening. [facility] clonazePAM 1 mg tablet 2022-02 00:00: 00 Yes [id number] Take 1 tablet by mouth once daily as needed for extreme anxiety. Attempt to minimize use. [facility] busPIRone 15 mg tablet 2022-02 00:00: 00 Yes [id number] 15mg Take 1 tablet by mouth in the morning and 1 tablet in the evening. [facility] lithium carbonate CR 450 mg SR tablet 2022-02 00:00: 00 Yes [id number] 900mg Take 2 tablets by mouth at bedtime. [facility] traZODone 50 mg tablet 2022-02 00:00: 00 Yes [id number] 50mg Take 1 tablet by mouth at bedtime. May cut tablet in half. [facility] DULoxetine 60 mg capsule 2022-02 00:00: 00 Yes [id number] 60mg Take 1 capsule by mouth in the morning and 1 capsule in the evening. [facility] lamoTRIgine 100 mg tablet 2022-02 00:00: 00 Yes [id number] 100mg Take 1 tablet by mouth in the morning and 1 tablet in the evening. [facility] clonazePAM 1 mg tablet 2022-02 00:00: 00 Yes [id number] Take 1 tablet by mouth once daily as needed for extreme anxiety. Attempt to minimize use. [facility] busPIRone 15 mg tablet 2022-02 00:00: 00 Yes [id number] 15mg Take 1 tablet by mouth in the morning and 1 tablet in the evening. [facility] lithium carbonate CR 450 mg SR tablet 2022-02 00:00: 00 Yes [id number] 900mg Take 2 tablets by mouth at bedtime. [facility] traZODone 50 mg tablet 2022-02 00:00: 00 Yes [id number] 50mg Take 1 tablet by mouth at bedtime. May cut tablet in half. [facility] DULoxetine 60 mg capsule 2022-02 00:00: 00 Yes [id number] 60mg Take 1 capsule by mouth in the morning and 1 capsule in the evening. [facility] lamoTRIgine 100 mg tablet 2022-02 00:00: 00 Yes [id number] 100mg Take 1 tablet by mouth in the morning and 1 tablet in the evening. [facility] clonazePAM 1 mg tablet 2022-02 00:00: 00 Yes [id number] Take 1 tablet by mouth once daily as needed for extreme anxiety. Attempt to minimize use. [facility] lithium carbonate CR 450 mg SR tablet 2022-02 00:00: 00 01-22 00:00 :00 No [id number] 900mg Take 2 tablets by mouth at bedtime. [facility] traZODone 50 mg tablet 2022-02 00:00: 00 01-22 00:00 :00 No [id number] 50mg Take 1 tablet by mouth at bedtime. May cut tablet in half. [facility] DULoxetine 60 mg capsule 2022-02 00:00: 00 01-22 00:00 :00 No [id number] 60mg Take 1 capsule by mouth in the morning and 1 capsule in the evening. [facility] lamoTRIgine 100 mg tablet 2022-02 00:00: 00 01-22 00:00 :00 No [id number] 100mg Take 1 tablet by mouth in the morning and 1 tablet in the evening. [facility] clonazePAM 1 mg tablet 2022-02 00:00: 00 01-22 00:00 :00 No [id number] Take 1 tablet by mouth once daily as needed for extreme anxiety. Attempt to minimize use. [facility] busPIRone 15 mg tablet 2022-02 00:00: 00 01-22 00:00 :00 No [id number] 15mg Take 1 tablet by mouth in the morning and 1 tablet in the evening. [facility] lithium carbonate CR 450 mg SR tablet 2022-02 00:00: 00 01-22 00:00 :00 No [id number] 900mg Take 2 tablets by mouth at bedtime. [facility] traZODone 50 mg tablet 2022-02 00:00: 00 01-22 00:00 :00 No [id number] 50mg Take 1 tablet by mouth at bedtime. May cut tablet in half. [facility] DULoxetine 60 mg capsule 2022-02 00:00: 00 01-22 00:00 :00 No [id number] 60mg Take 1 capsule by mouth in the morning and 1 capsule in the evening. [facility] lamoTRIgine 100 mg tablet 2022-02 00:00: 00 01-22 00:00 :00 No [id number] 100mg Take 1 tablet by mouth in the morning and 1 tablet in the evening. [facility] clonazePAM 1 mg tablet 2022-02 00:00: 00 01-22 00:00 :00 No [id number] Take 1 tablet by mouth once daily as needed for extreme anxiety. Attempt to minimize use. [facility] busPIRone 15 mg tablet 2022-02 00:00: 00 01-22 00:00 :00 No [id number] 15mg Take 1 tablet by mouth in the morning and 1 tablet in the evening. [facility] lithium carbonate CR 450 mg SR tablet 2022-02 00:00: 00 01-22 00:00 :00 No [id number] 900mg Take 2 tablets by mouth at bedtime. [facility] traZODone 50 mg tablet 2022-02 00:00: 00 01-22 00:00 :00 No [id number] 50mg Take 1 tablet by mouth at bedtime. May cut tablet in half. [facility] DULoxetine 60 mg capsule 2022-02 00:00: 00 01-22 00:00 :00 No [id number] 60mg Take 1 capsule by mouth in the morning and 1 capsule in the evening. [facility] lamoTRIgine 100 mg tablet 2022-02 00:00: 00 01-22 00:00 :00 No [id number] 100mg Take 1 tablet by mouth in the morning and 1 tablet in the evening. [facility] clonazePAM 1 mg tablet 2022-02 00:00: 00 01-22 00:00 :00 No [id number] Take 1 tablet by mouth once daily as needed for extreme anxiety. Attempt to minimize use. [facility] busPIRone 15 mg tablet 2022-02 00:00: 00 01-22 00:00 :00 No [id number] 15mg Take 1 tablet by mouth in the morning and 1 tablet in the evening. [facility] lithium carbonate CR 450 mg SR tablet 2022-02 00:00: 00 01-22 00:00 :00 No [id number] 900mg Take 2 tablets by mouth at bedtime. [facility] traZODone 50 mg tablet 2022-02 00:00: 00 01-22 00:00 :00 No [id number] 50mg Take 1 tablet by mouth at bedtime. May cut tablet in half. [facility] DULoxetine 60 mg capsule 2022-02 00:00: 00 01-22 00:00 :00 No [id number] 60mg Take 1 capsule by mouth in the morning and 1 capsule in the evening. [facility] lamoTRIgine 100 mg tablet 2022-02 00:00: 00 01-22 00:00 :00 No [id number] 100mg Take 1 tablet by mouth in the morning and 1 tablet in the evening. [facility] clonazePAM 1 mg tablet 2022-02 00:00: 00 01-22 00:00 :00 No [id number] Take 1 tablet by mouth once daily as needed for extreme anxiety. Attempt to minimize use. [facility] busPIRone 15 mg tablet 2022-02 00:00: 00 01-22 00:00 :00 No [id number] 15mg Take 1 tablet by mouth in the morning and 1 tablet in the evening. [facility] lithium carbonate CR 450 mg SR tablet 2022-02 00:00: 00 01-22 00:00 :00 No [id number] 900mg Take 2 tablets by mouth at bedtime. [facility] traZODone 50 mg tablet 2022-02 00:00: 00 01-22 00:00 :00 No [id number] 50mg Take 1 tablet by mouth at bedtime. May cut tablet in half. [facility] DULoxetine 60 mg capsule 2022-02 00:00: 00 01-22 00:00 :00 No [id number] 60mg Take 1 capsule by mouth in the morning and 1 capsule in the evening. [facility] lamoTRIgine 100 mg tablet 2022-02 00:00: 00 01-22 00:00 :00 No [id number] 100mg Take 1 tablet by mouth in the morning and 1 tablet in the evening. [facility] clonazePAM 1 mg tablet 2022-02 00:00: 00 01-22 00:00 :00 No [id number] Take 1 tablet by mouth once daily as needed for extreme anxiety. Attempt to minimize use. [facility] busPIRone 15 mg tablet 2022-02 00:00: 00 01-22 00:00 :00 No [id number] 15mg Take 1 tablet by mouth in the morning and 1 tablet in the evening. [facility] lithium carbonate CR 450 mg SR tablet 2022-02 00:00: 00 01-22 00:00 :00 No [id number] 900mg Take 2 tablets by mouth at bedtime. [facility] traZODone 50 mg tablet 2022-02 00:00: 00 01-22 00:00 :00 No [id number] 50mg Take 1 tablet by mouth at bedtime. May cut tablet in half. [facility] DULoxetine 60 mg capsule 2022-02 00:00: 00 01-22 00:00 :00 No [id number] 60mg Take 1 capsule by mouth in the morning and 1 capsule in the evening. [facility] lamoTRIgine 100 mg tablet 2022-02 00:00: 00 01-22 00:00 :00 No [id number] 100mg Take 1 tablet by mouth in the morning and 1 tablet in the evening. [facility] clonazePAM 1 mg tablet 2022-02 00:00: 00 01-22 00:00 :00 No [id number] Take 1 tablet by mouth once daily as needed for extreme anxiety. Attempt to minimize use. [facility] busPIRone 15 mg tablet 2022-02 00:00: 00 01-22 00:00 :00 No [id number] 15mg Take 1 tablet by mouth in the morning and 1 tablet in the evening. [facility] lithium carbonate CR 450 mg SR tablet 2022-02 00:00: 00 01-22 00:00 :00 No [id number] 900mg Take 2 tablets by mouth at bedtime. [facility] traZODone 50 mg tablet 2022-02 00:00: 00 01-22 00:00 :00 No [id number] 50mg Take 1 tablet by mouth at bedtime. May cut tablet in half. [facility] DULoxetine 60 mg capsule 2022-02 00:00: 00 01-22 00:00 :00 No [id number] 60mg Take 1 capsule by mouth in the morning and 1 capsule in the evening. [facility] lamoTRIgine 100 mg tablet 2022-02 00:00: 00 01-22 00:00 :00 No [id number] 100mg Take 1 tablet by mouth in the morning and 1 tablet in the evening. [facility] clonazePAM 1 mg tablet 2022-02 00:00: 00 01-22 00:00 :00 No [id number] Take 1 tablet by mouth once daily as needed for extreme anxiety. Attempt to minimize use. [facility] busPIRone 15 mg tablet 2022-02 00:00: 00 01-22 00:00 :00 No [id number] 15mg Take 1 tablet by mouth in the morning and 1 tablet in the evening. [facility] busPIRone 15 mg tablet 2022-02 00:00: 00 Yes [id number] 15mg Take 1 tablet by mouth in the morning and 1 tablet in the evening. [facility] busPIRone 15 mg tablet 2022-02 00:00: 00 Yes [id number] 15mg Take 1 tablet by mouth in the morning and 1 tablet in the evening. [facility] busPIRone 15 mg tablet 2022-02 00:00: 00 Yes [id number] 15mg Take 1 tablet by mouth in the morning and 1 tablet in the evening. [facility] busPIRone 15 mg tablet 2022-02 00:00: 00 12-20 00:00 :00 No [id number] 15mg Take 1 tablet by mouth in the morning and 1 tablet in the evening. [facility] busPIRone 15 mg tablet 2022-02 00:00: 00 12-20 00:00 :00 No [id number] 15mg Take 1 tablet by mouth in the morning and 1 tablet in the evening. [facility] busPIRone 15 mg tablet 2022-02 00:00: 00 12-20 00:00 :00 No [id number] 15mg Take 1 tablet by mouth in the morning and 1 tablet in the evening. [facility] lithium carbonate CR 450 mg SR tablet 2022-02 00:00: 00 Yes [id number] 900mg Take 2 tablets by mouth at bedtime. [facility] lithium carbonate CR 450 mg SR tablet 2022-02 00:00: 00 Yes [id number] 900mg Take 2 tablets by mouth at bedtime. [facility] traZODone 50 mg tablet 2022-02 0 00:00: 00 Yes [id number] 50mg Take 1 tablet by mouth at bedtime. May cut tablet in half. [facility] lithium carbonate CR 450 mg SR tablet 2022-02 0 00:00: 00 Yes [id number] 900mg Take 2 tablets by mouth at bedtime. [facility] traZODone 50 mg tablet 2022-02 0 00:00: 00 Yes [id number] 50mg Take 1 tablet by mouth at bedtime. May cut tablet in half. [facility] lithium carbonate CR 450 mg SR tablet 2022-02 0 00:00: 00 Yes [id number] 900mg Take 2 tablets by mouth at bedtime. [facility] traZODone 50 mg tablet 2022-02 0 00:00: 00 Yes [id number] 50mg Take 1 tablet by mouth at bedtime. May cut tablet in half. [facility] lithium carbonate CR 450 mg SR tablet 2022-02 0-17 00:00: 00 Yes [id number] 900mg Take 2 tablets by mouth at bedtime. [facility] traZODone 50 mg tablet 2022-02 0-17 00:00: 00 Yes [id number] 50mg Take 1 tablet by mouth at bedtime. May cut tablet in half. [facility] lithium carbonate CR 450 mg SR tablet 2022-02 0-17 00:00: 00 Yes [id number] 900mg Take 2 tablets by mouth at bedtime. [facility] traZODone 50 mg tablet 2022-02 0-17 00:00: 00 Yes [id number] 50mg Take 1 tablet by mouth at bedtime. May cut tablet in half. [facility] lithium carbonate CR 450 mg SR tablet 2022-02 0-17 00:00: 00 Yes [id number] 900mg Take 2 tablets by mouth at bedtime. [facility] traZODone 50 mg tablet 2022-02 017 00:00: 00 Yes [id number] 50mg Take 1 tablet by mouth at bedtime. May cut tablet in half. [facility] lithium carbonate CR 450 mg SR tablet 2022-02 017 00:00: 00 12-20 00:00 :00 No [id number] 900mg Take 2 tablets by mouth at bedtime. [facility] traZODone 50 mg tablet 2022-02 017 00:00: 00 12-20 00:00 :00 No [id number] 50mg Take 1 tablet by mouth at bedtime. May cut tablet in half. [facility] lithium carbonate CR 450 mg SR tablet 2022-02 0-17 00:00: 00 12-20 00:00 :00 No [id number] 900mg Take 2 tablets by mouth at bedtime. [facility] traZODone 50 mg tablet 2022-02 0-17 00:00: 00 12-20 00:00 :00 No [id number] 50mg Take 1 tablet by mouth at bedtime. May cut tablet in half. [facility] lithium carbonate CR 450 mg SR tablet 2022-02 0-17 00:00: 00 12-20 00:00 :00 No [id number] 900mg Take 2 tablets by mouth at bedtime. [facility] traZODone 50 mg tablet 2022-02 0-17 00:00: 00 12-20 00:00 :00 No [id number] 50mg Take 1 tablet by mouth at bedtime. May cut tablet in half. [facility] DULoxetine 60 mg capsule 2022-02 0- 00:00: 00 Yes [id number] 60mg Take 1 capsule by mouth in the morning and 1 capsule in the evening. [facility] DULoxetine 60 mg capsule 2022-02 0 00:00: 00 Yes [id number] 60mg Take 1 capsule by mouth in the morning and 1 capsule in the evening. [facility] DULoxetine 60 mg capsule 2022-02 0 00:00: 00 Yes [id number] 60mg Take 1 capsule by mouth in the morning and 1 capsule in the evening. [facility] DULoxetine 60 mg capsule 2022-02 0 00:00: 00 Yes [id number] 60mg Take 1 capsule by mouth in the morning and 1 capsule in the evening. [facility] DULoxetine 60 mg capsule 2022-02 0 00:00: 00 Yes [id number] 60mg Take 1 capsule by mouth in the morning and 1 capsule in the evening. [facility] DULoxetine 60 mg capsule 2022-02 0 00:00: 00 Yes [id number] 60mg Take 1 capsule by mouth in the morning and 1 capsule in the evening. [facility] DULoxetine 60 mg capsule 2022-02 0 00:00: 00 Yes [id number] 60mg Take 1 capsule by mouth in the morning and 1 capsule in the evening. [facility] DULoxetine 60 mg capsule 2022-02 0 00:00: 00 Yes [id number] 60mg Take 1 capsule by mouth in the morning and 1 capsule in the evening. [facility] DULoxetine 60 mg capsule 2022-02 0 00:00: 00 Yes [id number] 60mg Take 1 capsule by mouth in the morning and 1 capsule in the evening. [facility] DULoxetine 60 mg capsule 2022-02 0-11 00:00: 00 Yes [id number] 60mg Take 1 capsule by mouth in the morning and 1 capsule in the evening. [facility] DULoxetine 60 mg capsule 2022-02 0 00:00: 00 Yes [id number] 60mg Take 1 capsule by mouth in the morning and 1 capsule in the evening. [facility] DULoxetine 60 mg capsule 2022-02 0 00:00: 00 Yes [id number] 60mg Take 1 capsule by mouth in the morning and 1 capsule in the evening. [facility] DULoxetine 60 mg capsule 2022-02 0 00:00: 00 Yes [id number] 60mg Take 1 capsule by mouth in the morning and 1 capsule in the evening. [facility] DULoxetine 60 mg capsule 2022-02 00:00: 00 Yes [id number] 60mg Take 1 capsule by mouth in the morning and 1 capsule in the evening. [facility] DULoxetine 60 mg capsule 2022-02 00:00: 00 12-20 00:00 :00 No [id number] 60mg Take 1 capsule by mouth in the morning and 1 capsule in the evening. [facility] DULoxetine 60 mg capsule 2022-02 00:00: 00 12-20 00:00 :00 No [id number] 60mg Take 1 capsule by mouth in the morning and 1 capsule in the evening. [facility] DULoxetine 60 mg capsule 2022-02 00:00: 00 12-20 00:00 :00 No [id number] 60mg Take 1 capsule by mouth in the morning and 1 capsule in the evening. [facility] simethicone (GAS RELIEF (SIMETHICON E)) 40 mg/0.6 mL drops 2022-02 13:19: 00 11-13 16:49 :02 No PRN, Starting on Sun11/13/22 at 0819, Until Sun11/13/22 at 1149, Routine, Intra-op [facility] simethicone (GAS RELIEF (SIMETHICON E)) 40 mg/0.6 mL drops 2022-02 13:19: 00 11-13 16:49 :02 No PRN, Starting on Sun11/13/22 at 0819, Until Sun11/13/22 at 1149, Routine, Intra-op [facility] losartan potassium (LOSARTAN ORAL) 2022-02 0 09:49: 01 Yes 20mg Take 20 mg by mouth. [facility] propranolol 80 mg tablet 2022-02 09:49: 01 Yes 80mg Take 1 tablet by mouth in the morning and 1 tablet in the evening. [facility] allopurinoL 100 mg tablet 2022-02 09:49: 01 Yes 100mg Take 1 tablet by mouth in the morning. [facility] losartan potassium (LOSARTAN ORAL) 2022-02 09:49: 01 Yes 20mg Take 20 mg by mouth. [facility] propranolol 80 mg tablet 2022-02 09:49: 01 Yes 80mg Take 1 tablet by mouth in the morning and 1 tablet in the evening. [facility] allopurinoL 100 mg tablet 2022-02 09:49: 01 Yes 100mg Take 1 tablet by mouth in the morning. [facility] losartan potassium (LOSARTAN ORAL) 2022-02 09:49: 01 Yes 20mg Take 20 mg by mouth. [facility] propranolol 80 mg tablet 2022-02 09:49: 01 Yes 80mg Take 1 tablet by mouth in the morning and 1 tablet in the evening. [facility] allopurinoL 100 mg tablet 2022-02 0 09:49: 01 Yes 100mg Take 1 tablet by mouth in the morning. [facility] losartan potassium (LOSARTAN ORAL) 2022-02 0 09:49: 01 Yes 20mg Take 20 mg by mouth. [facility] propranolol 80 mg tablet 2022-02 0 09:49: 01 Yes 80mg Take 1 tablet by mouth in the morning and 1 tablet in the evening. [facility] allopurinoL 100 mg tablet 2022-02 0 09:49: 01 Yes 100mg Take 1 tablet by mouth in the morning. [facility] losartan potassium (LOSARTAN ORAL) 2022-02 0 09:49: 01 Yes 20mg Take 20 mg by mouth. [facility] propranolol 80 mg tablet 2022-02 0 09:49: 01 Yes 80mg Take 1 tablet by mouth in the morning and 1 tablet in the evening. [facility] allopurinoL 100 mg tablet 2022-02 0 09:49: 01 Yes 100mg Take 1 tablet by mouth in the morning. [facility] losartan potassium (LOSARTAN ORAL) 2022-02 0 09:49: 01 Yes 20mg Take 20 mg by mouth. [facility] propranolol 80 mg tablet 2022-02 0 09:49: 01 Yes 80mg Take 1 tablet by mouth in the morning and 1 tablet in the evening. [facility] allopurinoL 100 mg tablet 2022-02 0 09:49: 01 Yes 100mg Take 1 tablet by mouth in the morning. [facility] losartan potassium (LOSARTAN ORAL) 2022-02 0 09:49: 01 Yes 20mg Take 20 mg by mouth. [facility] propranolol 80 mg tablet 2022-02 0 09:49: 01 Yes 80mg Take 1 tablet by mouth in the morning and 1 tablet in the evening. [facility] allopurinoL 100 mg tablet 2022-02 0 09:49: 01 Yes 100mg Take 1 tablet by mouth in the morning. [facility] losartan potassium (LOSARTAN ORAL) 2022-02 0 09:49: 01 Yes 20mg Take 20 mg by mouth. [facility] propranolol 80 mg tablet 2022-02 0 09:49: 01 Yes 80mg Take 1 tablet by mouth in the morning and 1 tablet in the evening. [facility] allopurinoL 100 mg tablet 2022-02 0 09:49: 01 Yes 100mg Take 1 tablet by mouth in the morning. [facility] losartan potassium (LOSARTAN ORAL) 2022-02 0 09:49: 01 Yes 20mg Take 20 mg by mouth. [facility] propranolol 80 mg tablet 2022-02 0 09:49: 01 Yes 80mg Take 1 tablet by mouth in the morning and 1 tablet in the evening. [facility] allopurinoL 100 mg tablet 2022-02 0 09:49: 01 Yes 100mg Take 1 tablet by mouth in the morning. [facility] losartan potassium (LOSARTAN ORAL) 2022-02 0 09:49: 01 Yes 20mg Take 20 mg by mouth. [facility] propranolol 80 mg tablet 2022-02 0 09:49: 01 Yes 80mg Take 1 tablet by mouth in the morning and 1 tablet in the evening. [facility] allopurinoL 100 mg tablet 2022-02 0 09:49: 01 Yes 100mg Take 1 tablet by mouth in the morning. [facility] losartan potassium (LOSARTAN ORAL) 2022-02 0 09:49: 01 Yes 20mg Take 20 mg by mouth. [facility] propranolol 80 mg tablet 2022-02 0 09:49: 01 Yes 80mg Take 1 tablet by mouth in the morning and 1 tablet in the evening. [facility] allopurinoL 100 mg tablet 2022-02 0 09:49: 01 Yes 100mg Take 1 tablet by mouth in the morning. [facility] losartan potassium (LOSARTAN ORAL) 2022-02 0 09:49: 01 Yes 20mg Take 20 mg by mouth. [facility] propranolol 80 mg tablet 2022-02 0 09:49: 01 Yes 80mg Take 1 tablet by mouth in the morning and 1 tablet in the evening. [facility] allopurinoL 100 mg tablet 2022-02 0 09:49: 01 Yes 100mg Take 1 tablet by mouth in the morning. [facility] losartan potassium (LOSARTAN ORAL) 2022-02 0 09:49: 01 Yes 20mg Take 20 mg by mouth. [facility] propranolol 80 mg tablet 2022-02 0 09:49: 01 Yes 80mg Take 1 tablet by mouth in the morning and 1 tablet in the evening. [facility] allopurinoL 100 mg tablet 2022-02 0 09:49: 01 Yes 100mg Take 1 tablet by mouth in the morning. [facility] losartan potassium (LOSARTAN ORAL) 2022-02 0 09:49: 01 Yes 20mg Take 20 mg by mouth. [facility] propranolol 80 mg tablet 2022-02 0 09:49: 01 Yes 80mg Take 1 tablet by mouth in the morning and 1 tablet in the evening. [facility] allopurinoL 100 mg tablet 2022-02 0 09:49: 01 Yes 100mg Take 1 tablet by mouth in the morning. [facility] losartan potassium (LOSARTAN ORAL) 2022-02 0 09:49: 01 Yes 20mg Take 20 mg by mouth. [facility] propranolol 80 mg tablet 2022-02 0 09:49: 01 Yes 80mg Take 1 tablet by mouth in the morning and 1 tablet in the evening. [facility] allopurinoL 100 mg tablet 2022-02 0 09:49: 01 Yes 100mg Take 1 tablet by mouth in the morning. [facility] losartan potassium (LOSARTAN ORAL) 2022-02 0 09:49: 01 Yes 20mg Take 20 mg by mouth. [facility] propranolol 80 mg tablet 2022-02 0 09:49: 01 Yes 80mg Take 1 tablet by mouth in the morning and 1 tablet in the evening. [facility] allopurinoL 100 mg tablet 2022-02 0 09:49: 01 Yes 100mg Take 1 tablet by mouth in the morning. [facility] losartan potassium (LOSARTAN ORAL) 2022-02 0 09:49: 01 Yes 20mg Take 20 mg by mouth. [facility] propranolol 80 mg tablet 2022-02 0 09:49: 01 Yes 80mg Take 1 tablet by mouth in the morning and 1 tablet in the evening. [facility] allopurinoL 100 mg tablet 2022-02 0 09:49: 01 Yes 100mg Take 1 tablet by mouth in the morning. [facility] losartan potassium (LOSARTAN ORAL) 2022-02 0 09:49: 01 Yes 20mg Take 20 mg by mouth. [facility] propranolol 80 mg tablet 2022-02 0 09:49: 01 Yes 80mg Take 1 tablet by mouth in the morning and 1 tablet in the evening. [facility] allopurinoL 100 mg tablet 2022-02 0 09:49: 01 Yes 100mg Take 1 tablet by mouth in the morning. [facility] losartan potassium (LOSARTAN ORAL) 2022-02 0 09:49: 01 Yes 20mg Take 20 mg by mouth. [facility] propranolol 80 mg tablet 2022-02 0 09:49: 01 Yes 80mg Take 1 tablet by mouth in the morning and 1 tablet in the evening. [facility] allopurinoL 100 mg tablet 2022-02 0 09:49: 01 Yes 100mg Take 1 tablet by mouth in the morning. [facility] losartan potassium (LOSARTAN ORAL) 2022-02 0 09:49: 01 Yes 20mg Take 20 mg by mouth. [facility] propranolol 80 mg tablet 2022-02 0 09:49: 01 Yes 80mg Take 1 tablet by mouth in the morning and 1 tablet in the evening. [facility] allopurinoL 100 mg tablet 2022-02 0 09:49: 01 Yes 100mg Take 1 tablet by mouth in the morning. [facility] losartan potassium (LOSARTAN ORAL) 2022-02 0 09:49: 01 Yes 20mg Take 20 mg by mouth. [facility] propranolol 80 mg tablet 2022-02 0 09:49: 01 Yes 80mg Take 1 tablet by mouth in the morning and 1 tablet in the evening. [facility] allopurinoL 100 mg tablet 2022-02 0 09:49: 01 Yes 100mg Take 1 tablet by mouth in the morning. [facility] losartan potassium (LOSARTAN ORAL) 2022-02 0 09:49: 01 Yes 20mg Take 20 mg by mouth. [facility] propranolol 80 mg tablet 2022-02 0 09:49: 01 Yes 80mg Take 1 tablet by mouth in the morning and 1 tablet in the evening. [facility] allopurinoL 100 mg tablet 2022-02 0 09:49: 01 Yes 100mg Take 1 tablet by mouth in the morning. [facility] losartan potassium (LOSARTAN ORAL) 2022-02 0 09:49: 01 Yes 20mg Take 20 mg by mouth. [facility] propranolol 80 mg tablet 2022-02 0 09:49: 01 Yes 80mg Take 1 tablet by mouth in the morning and 1 tablet in the evening. [facility] allopurinoL 100 mg tablet 2022-02 0 09:49: 01 Yes 100mg Take 1 tablet by mouth in the morning. [facility] losartan potassium (LOSARTAN ORAL) 2022-02 0 09:49: 01 Yes 20mg Take 20 mg by mouth. [facility] propranolol 80 mg tablet 2022-02 0 09:49: 01 Yes 80mg Take 1 tablet by mouth in the morning and 1 tablet in the evening. [facility] allopurinoL 100 mg tablet 2022-02 0 09:49: 01 Yes 100mg Take 1 tablet by mouth in the morning. [facility] losartan potassium (LOSARTAN ORAL) 2022-02 0 09:49: 01 Yes 20mg Take 20 mg by mouth. [facility] propranolol 80 mg tablet 2022-02 0 09:49: 01 Yes 80mg Take 1 tablet by mouth in the morning and 1 tablet in the evening. [facility] allopurinoL 100 mg tablet 2022-02 0 09:49: 01 Yes 100mg Take 1 tablet by mouth in the morning. [facility] losartan potassium (LOSARTAN ORAL) 2022-02 0 09:49: 01 Yes 20mg Take 20 mg by mouth. [facility] propranolol 80 mg tablet 2022-02 0 09:49: 01 Yes 80mg Take 1 tablet by mouth in the morning and 1 tablet in the evening. [facility] allopurinoL 100 mg tablet 2022-02 0 09:49: 01 Yes 100mg Take 1 tablet by mouth in the morning. [facility] losartan potassium (LOSARTAN ORAL) 2022-02 0 09:49: 01 Yes 20mg Take 20 mg by mouth. [facility] propranolol 80 mg tablet 2022-02 0 09:49: 01 Yes 80mg Take 1 tablet by mouth in the morning and 1 tablet in the evening. [facility] allopurinoL 100 mg tablet 2022-02 0 09:49: 01 Yes 100mg Take 1 tablet by mouth in the morning. [facility] losartan potassium (LOSARTAN ORAL) 2022-02 0 09:49: 01 Yes 20mg Take 20 mg by mouth. [facility] propranolol 80 mg tablet 2022-02 0 09:49: 01 Yes 80mg Take 1 tablet by mouth in the morning and 1 tablet in the evening. [facility] allopurinoL 100 mg tablet 2022-02 0 09:49: 01 Yes 100mg Take 1 tablet by mouth in the morning. [facility] losartan potassium (LOSARTAN ORAL) 2022-02 0 09:49: 01 Yes 20mg Take 20 mg by mouth. [facility] propranolol 80 mg tablet 2022-02 0 09:49: 01 Yes 80mg Take 1 tablet by mouth in the morning and 1 tablet in the evening. [facility] allopurinoL 100 mg tablet 2022-02 0 09:49: 01 Yes 100mg Take 1 tablet by mouth in the morning. [facility] losartan potassium (LOSARTAN ORAL) 2022-02 0 09:49: 01 Yes 20mg Take 20 mg by mouth. [facility] propranolol 80 mg tablet 2022-02 0 09:49: 01 Yes 80mg Take 1 tablet by mouth in the morning and 1 tablet in the evening. [facility] allopurinoL 100 mg tablet 2022-02 0 09:49: 01 Yes 100mg Take 1 tablet by mouth in the morning. [facility] losartan potassium (LOSARTAN ORAL) 2022-02 0 09:49: 01 Yes 20mg Take 20 mg by mouth. [facility] propranolol 80 mg tablet 2022-02 0- 09:49: 01 Yes 80mg Take 1 tablet by mouth in the morning and 1 tablet in the evening. [facility] allopurinoL 100 mg tablet 2022-02 0-02 09:49: 01 Yes 100mg Take 1 tablet by mouth in the morning. [facility] losartan potassium (LOSARTAN ORAL) 2022-02 0 09:49: 01 Yes 20mg Take 20 mg by mouth. [facility] propranolol 80 mg tablet 2022-02 0 09:49: 01 Yes 80mg Take 1 tablet by mouth in the morning and 1 tablet in the evening. [facility] allopurinoL 100 mg tablet 2022-02 0 09:49: 01 Yes 100mg Take 1 tablet by mouth in the morning. [facility] losartan potassium (LOSARTAN ORAL) 2022-02 0 09:49: 01 Yes 20mg Take 20 mg by mouth. [facility] propranolol 80 mg tablet 2022-02 0 09:49: 01 Yes 80mg Take 1 tablet by mouth in the morning and 1 tablet in the evening. [facility] allopurinoL 100 mg tablet 2022-02 0 09:49: 01 Yes 100mg Take 1 tablet by mouth in the morning. [facility] losartan potassium (LOSARTAN ORAL) 2022-02 0 09:49: 01 Yes 20mg Take 20 mg by mouth. [facility] propranolol 80 mg tablet 2022-02 0 09:49: 01 Yes 80mg Take 1 tablet by mouth in the morning and 1 tablet in the evening. [facility] allopurinoL 100 mg tablet 2022-02 0 09:49: 01 Yes 100mg Take 1 tablet by mouth in the morning. [facility] losartan potassium (LOSARTAN ORAL) 2022-02 0 09:49: 01 Yes 20mg Take 20 mg by mouth. [facility] propranolol 80 mg tablet 2022-02 0 09:49: 01 Yes 80mg Take 1 tablet by mouth in the morning and 1 tablet in the evening. [facility] allopurinoL 100 mg tablet 2022-02 0 09:49: 01 Yes 100mg Take 1 tablet by mouth in the morning. [facility] losartan potassium (LOSARTAN ORAL) 2022-02 0 09:49: 01 Yes 20mg Take 20 mg by mouth. [facility] propranolol 80 mg tablet 2022-02 0 09:49: 01 Yes 80mg Take 1 tablet by mouth in the morning and 1 tablet in the evening. [facility] allopurinoL 100 mg tablet 2022-02 0 09:49: 01 Yes 100mg Take 1 tablet by mouth in the morning. [facility] losartan potassium (LOSARTAN ORAL) 2022-02 0 09:49: 01 Yes 20mg Take 20 mg by mouth. [facility] propranolol 80 mg tablet 2022-02 0 09:49: 01 Yes 80mg Take 1 tablet by mouth in the morning and 1 tablet in the evening. [facility] allopurinoL 100 mg tablet 2022-02 0 09:49: 01 Yes 100mg Take 1 tablet by mouth in the morning. [facility] losartan potassium (LOSARTAN ORAL) 2022-02 0 09:49: 01 Yes 20mg Take 20 mg by mouth. [facility] propranolol 80 mg tablet 2022-02 0 09:49: 01 Yes 80mg Take 1 tablet by mouth in the morning and 1 tablet in the evening. [facility] allopurinoL 100 mg tablet 2022-02 0 09:49: 01 Yes 100mg Take 1 tablet by mouth in the morning. [facility] losartan potassium (LOSARTAN ORAL) 2022-02 0 09:49: 01 Yes 20mg Take 20 mg by mouth. [facility] propranolol 80 mg tablet 2022-02 0 09:49: 01 Yes 80mg Take 1 tablet by mouth in the morning and 1 tablet in the evening. [facility] allopurinoL 100 mg tablet 2022-02 0 09:49: 01 Yes 100mg Take 1 tablet by mouth in the morning. [facility] losartan potassium (LOSARTAN ORAL) 2022-02 0 09:49: 01 Yes 20mg Take 20 mg by mouth. [facility] propranolol 80 mg tablet 2022-02 0 09:49: 01 Yes 80mg Take 1 tablet by mouth in the morning and 1 tablet in the evening. [facility] allopurinoL 100 mg tablet 2022-02 002 09:49: 01 Yes 100mg Take 1 tablet by mouth in the morning. [facility] losartan potassium (LOSARTAN ORAL) 2022-02 0 09:49: 01 Yes 20mg Take 20 mg by mouth. [facility] propranolol 80 mg tablet 2022-02 0 09:49: 01 Yes 80mg Take 1 tablet by mouth in the morning and 1 tablet in the evening. [facility] allopurinoL 100 mg tablet 2022-02 0 09:49: 01 Yes 100mg Take 1 tablet by mouth in the morning. [facility] sucralfate 1 gram tablet 2022-02 0 00:00: 00 12-14 04:59 :00 No 1g Take 1 tablet by mouth in the morning and 1 tablet in the evening. Do all this for 30 days. [facility] sucralfate 1 gram tablet 2022-02 0 00:00: 00 12-14 04:59 :00 No 1g Take 1 tablet by mouth in the morning and 1 tablet in the evening. Do all this for 30 days. [facility] sucralfate 1 gram tablet 2022-02 0- 00:00: 00 12-14 04:59 :00 No 1g Take 1 tablet by mouth in the morning and 1 tablet in the evening. Do all this for 30 days. [facility] sucralfate 1 gram tablet 2022-02 0- 00:00: 00 12-14 04:59 :00 No 1g Take 1 tablet by mouth in the morning and 1 tablet in the evening. Do all this for 30 days. [facility] sucralfate 1 gram tablet 2022-02 0-02 00:00: 00 12-14 04:59 :00 No 1g Take 1 tablet by mouth in the morning and 1 tablet in the evening. Do all this for 30 days. [facility] sucralfate 1 gram tablet 2022-02 0-02 00:00: 00 12-14 04:59 :00 No 1g Take 1 tablet by mouth in the morning and 1 tablet in the evening. Do all this for 30 days. [facility] sucralfate 1 gram tablet 2022-02 0-02 00:00: 00 12-14 04:59 :00 No 1g Take 1 tablet by mouth in the morning and 1 tablet in the evening. Do all this for 30 days. [facility] sucralfate 1 gram tablet 2022-02 0-02 00:00: 00 12-14 04:59 :00 No 1g Take 1 tablet by mouth in the morning and 1 tablet in the evening. Do all this for 30 days. [facility] sucralfate 1 gram tablet 2022-02 0-02 00:00: 00 12-14 04:59 :00 No 1g Take 1 tablet by mouth in the morning and 1 tablet in the evening. Do all this for 30 days. [facility] sucralfate 1 gram tablet 2022-02 0-02 00:00: 00 12-14 04:59 :00 No 1g Take 1 tablet by mouth in the morning and 1 tablet in the evening. Do all this for 30 days. [facility] sucralfate 1 gram tablet 2022-02 0-02 00:00: 00 12-14 04:59 :00 No 1g Take 1 tablet by mouth in the morning and 1 tablet in the evening. Do all this for 30 days. [facility] sucralfate 1 gram tablet 2022-02 0-02 00:00: 00 12-14 04:59 :00 No 1g Take 1 tablet by mouth in the morning and 1 tablet in the evening. Do all this for 30 days. [facility] sucralfate 1 gram tablet 2022-02 0-02 00:00: 00 12-14 04:59 :00 No 1g Take 1 tablet by mouth in the morning and 1 tablet in the evening. Do all this for 30 days. [facility] sucralfate 1 gram tablet 2022-02 0-02 00:00: 00 12-14 04:59 :00 No 1g Take 1 tablet by mouth in the morning and 1 tablet in the evening. Do all this for 30 days. [facility] sucralfate 1 gram tablet 2022-02 0-02 00:00: 00 12-14 04:59 :00 No 1g Take 1 tablet by mouth in the morning and 1 tablet in the evening. Do all this for 30 days. [facility] sucralfate 1 gram tablet 2022-02 0- 00:00: 00 12-14 04:59 :00 No 1g Take 1 tablet by mouth in the morning and 1 tablet in the evening. Do all this for 30 days. [facility] sucralfate 1 gram tablet 2022-02 0- 00:00: 00 12-14 04:59 :00 No 1g Take 1 tablet by mouth in the morning and 1 tablet in the evening. Do all this for 30 days. [facility] sucralfate 1 gram tablet 2022-02 0- 00:00: 00 12-14 04:59 :00 No 1g Take 1 tablet by mouth in the morning and 1 tablet in the evening. Do all this for 30 days. [facility] sucralfate 1 gram tablet 2022-02 0- 00:00: 00 12-14 04:59 :00 No 1g Take 1 tablet by mouth in the morning and 1 tablet in the evening. Do all this for 30 days. [facility] sucralfate 1 gram tablet 2022-02 0 00:00: 00 12-14 04:59 :00 No 1g Take 1 tablet by mouth in the morning and 1 tablet in the evening. Do all this for 30 days. [facility] ketorolac (TORADOL) injection 30 mg 11-03 17:00: 00 11-03 16:25 :00 No 30mg 30 mg, Slow IV Push, ONCE, 1 dose, On Sun11/03/22 at 1200, Routine [facility] NaCl 0.9% (NS) bolus infusion 500 mL 11-03 16:45: 00 11-03 18:14 :00 No 500mL at 999 mL/hr, 500 mL, IV Infusion, ONCE, 1 dose, On Sun11/03/22 at 1145, [facility] butalbital- acetaminoph en-caff (ESGIC) 50-325-40 mg tablet 1 tablet 11-03 16:00: 00 11-03 16:21 :00 No 1{tbl} 1 tablet, Oral, ONCE, 1 dose, On Sun11/03/22 at 1100, [facility] dexamethaso ne sod phos PF injection 10 mg 11-03 16:00: 00 11-03 16:27 :00 No 10mg 10 mg, Slow IV Push, ONCE, 1 dose, On Sun11/03/22 at 1100, 1 mL [facility] metoclopram chelo HCl (REGLAN) injection 10 mg 11-03 16:00: 00 11-03 16:28 :00 No 10mg 10 mg, Slow IV Push, ONCE, 1 dose, On Sun11/03/22 at 1100, [facility] diphenhydrA MINE (BENADRYL) injection 25 mg 11-03 16:00: 00 11-03 16:30 :00 No 25mg 25 mg, Slow IV Push, ONCE, 1 dose, On Sun11/03/22 at 1100, STAT [facility] atorvastati n 10 mg tablet 11-03 10:48: 00 11-03 00:00 :00 No 10mg Take 10 mg by mouth at bedtime. [facility] atorvastati n 10 mg tablet 11-03 10:48: 00 11-03 00:00 :00 No 10mg Take 10 mg by mouth at bedtime. [facility] atorvastati n 10 mg tablet 11-03 10:48: 00 11-03 00:00 :00 No 10mg Take 10 mg by mouth at bedtime. [facility] atorvastati n 10 mg tablet 11-03 10:48: 00 11-03 00:00 :00 No 10mg Take 10 mg by mouth at bedtime. [facility] atorvastati n 10 mg tablet 0 11-03 10:48: 00 11-03 00:00 :00 No 10mg Take 10 mg by mouth at bedtime. [facility] atorvastati n 10 mg tablet 0 11-03 10:48: 00 11-03 00:00 :00 No 10mg Take 10 mg by mouth at bedtime. [facility] atorvastati n 10 mg tablet 11-03 10:48: 00 11-03 00:00 :00 No 10mg Take 10 mg by mouth at bedtime. [facility] atorvastati n 10 mg tablet 0 11-03 10:48: 00 11-03 00:00 :00 No 10mg Take 10 mg by mouth at bedtime. [facility] atorvastati n 10 mg tablet 11-03 10:48: 00 11-03 00:00 :00 No 10mg Take 10 mg by mouth at bedtime. [facility] atorvastati n 10 mg tablet 0 11-03 10:48: 00 11-03 00:00 :00 No 10mg Take 10 mg by mouth at bedtime. [facility] butalbital- acetaminoph en-caff 50-325-40 mg tablet 11-03 00:00: 00 Yes [id number] 1{tbl} Take 1 tablet by mouth every 6 (six) hours as needed for Pain (scale 7-10) or Pain (scale 4-6) for up to 12 doses. [facility] butalbital- acetaminoph en-caff 50-325-40 mg tablet 0 11-03 00:00: 00 Yes [id number] 1{tbl} Take 1 tablet by mouth every 6 (six) hours as needed for Pain (scale 7-10) or Pain (scale 4-6) for up to 12 doses. [facility] butalbital- acetaminoph en-caff 50-325-40 mg tablet 11-03 00:00: 00 Yes [id number] 1{tbl} Take 1 tablet by mouth every 6 (six) hours as needed for Pain (scale 7-10) or Pain (scale 4-6) for up to 12 doses. [facility] butalbital- acetaminoph en-caff 50-325-40 mg tablet 3-0 11-03 00:00: 00 Yes [id number] 1{tbl} Take 1 tablet by mouth every 6 (six) hours as needed for Pain (scale 7-10) or Pain (scale 4-6) for up to 12 doses. [facility] butalbital- acetaminoph en-caff 50-325-40 mg tablet 2023-0 11-03 00:00: 00 Yes [id number] 1{tbl} Take 1 tablet by mouth every 6 (six) hours as needed for Pain (scale 7-10) or Pain (scale 4-6) for up to 12 doses. [facility]- acetaminoph en-caff 50-325-40 mg tablet 3-0 11-03 00:00: 00 Yes [id number] 1{tbl} Take 1 tablet by mouth every 6 (six) hours as needed for Pain (scale 7-10) or Pain (scale 4-6) for up to 12 doses. [facility] butalbital- acetaminoph en-caff 50-325-40 mg tablet 3-0 11-03 00:00: 00 Yes [id number] 1{tbl} Take 1 tablet by mouth every 6 (six) hours as needed for Pain (scale 7-10) or Pain (scale 4-6) for up to 12 doses. [facility] butalbital- acetaminoph en-caff 50-325-40 mg tablet 2023-0 11-03 00:00: 00 Yes [id number] 1{tbl} Take 1 tablet by mouth every 6 (six) hours as needed for Pain (scale 7-10) or Pain (scale 4-6) for up to 12 doses. [facility] butalbital- acetaminoph en-caff 50-325-40 mg tablet 2023-0 11-03 00:00: 00 Yes [id number] 1{tbl} Take 1 tablet by mouth every 6 (six) hours as needed for Pain (scale 7-10) or Pain (scale 4-6) for up to 12 doses. [facility] butalbital- acetaminoph en-caff 50-325-40 mg tablet 3-0 11-03 00:00: 00 Yes [id number] 1{tbl} Take 1 tablet by mouth every 6 (six) hours as needed for Pain (scale 7-10) or Pain (scale 4-6) for up to 12 doses. [facility] butalbital- acetaminoph en-caff 50-325-40 mg tablet 3-0 11-03 00:00: 00 Yes [id number] 1{tbl} Take 1 tablet by mouth every 6 (six) hours as needed for Pain (scale 7-10) or Pain (scale 4-6) for up to 12 doses. [facility]- acetaminoph en-caff 50-325-40 mg tablet 3-0 11-03 00:00: 00 Yes [id number] 1{tbl} Take 1 tablet by mouth every 6 (six) hours as needed for Pain (scale 7-10) or Pain (scale 4-6) for up to 12 doses. [facility] butalbital- acetaminoph en-caff 50-325-40 mg tablet 3-0 11-03 00:00: 00 Yes [id number] 1{tbl} Take 1 tablet by mouth every 6 (six) hours as needed for Pain (scale 7-10) or Pain (scale 4-6) for up to 12 doses. [facility] butalbital- acetaminoph en-caff 50-325-40 mg tablet 2023-0 11-03 00:00: 00 Yes [id number] 1{tbl} Take 1 tablet by mouth every 6 (six) hours as needed for Pain (scale 7-10) or Pain (scale 4-6) for up to 12 doses. [facility] butalbital- acetaminoph en-caff 50-325-40 mg tablet 2023-0 11-03 00:00: 00 Yes [id number] 1{tbl} Take 1 tablet by mouth every 6 (six) hours as needed for Pain (scale 7-10) or Pain (scale 4-6) for up to 12 doses. [facility] butalbital- acetaminoph en-caff 50-325-40 mg tablet 3-0 11-03 00:00: 00 Yes [id number] 1{tbl} Take 1 tablet by mouth every 6 (six) hours as needed for Pain (scale 7-10) or Pain (scale 4-6) for up to 12 doses. [facility] butalbital- acetaminoph en-caff 50-325-40 mg tablet 3-0 11-03 00:00: 00 Yes [id number] 1{tbl} Take 1 tablet by mouth every 6 (six) hours as needed for Pain (scale 7-10) or Pain (scale 4-6) for up to 12 doses. [facility] butal[facility]- acetaminoph en-caff 50-325-40 mg tablet 3-0 11-03 00:00: 00 Yes [id number] 1{tbl} Take 1 tablet by mouth every 6 (six) hours as needed for Pain (scale 7-10) or Pain (scale 4-6) for up to 12 doses. [facility] butalbital- acetaminoph en-caff 50-325-40 mg tablet 3-0 11-03 00:00: 00 Yes [id number] 1{tbl} Take 1 tablet by mouth every 6 (six) hours as needed for Pain (scale 7-10) or Pain (scale 4-6) for up to 12 doses. [facility] butalbital- acetaminoph en-caff 50-325-40 mg tablet 2023-0 11-03 00:00: 00 Yes [id number] 1{tbl} Take 1 tablet by mouth every 6 (six) hours as needed for Pain (scale 7-10) or Pain (scale 4-6) for up to 12 doses. [facility] butalbital- acetaminoph en-caff 50-325-40 mg tablet 2023-0 11-03 00:00: 00 Yes [id number] 1{tbl} Take 1 tablet by mouth every 6 (six) hours as needed for Pain (scale 7-10) or Pain (scale 4-6) for up to 12 doses. [facility] butalbital- acetaminoph en-caff 50-325-40 mg tablet 3-0 11-03 00:00: 00 Yes [id number] 1{tbl} Take 1 tablet by mouth every 6 (six) hours as needed for Pain (scale 7-10) or Pain (scale 4-6) for up to 12 doses. [facility] butalbital- acetaminoph en-caff 50-325-40 mg tablet 3-0 11-03 00:00: 00 Yes [id number] 1{tbl} Take 1 tablet by mouth every 6 (six) hours as needed for Pain (scale 7-10) or Pain (scale 4-6) for up to 12 doses. [facility] but[facility]- acetaminoph en-caff 50-325-40 mg tablet 3-0 11-03 00:00: 00 Yes [id number] 1{tbl} Take 1 tablet by mouth every 6 (six) hours as needed for Pain (scale 7-10) or Pain (scale 4-6) for up to 12 doses. [facility] butalbital- acetaminoph en-caff 50-325-40 mg tablet 3-0 11-03 00:00: 00 Yes [id number] 1{tbl} Take 1 tablet by mouth every 6 (six) hours as needed for Pain (scale 7-10) or Pain (scale 4-6) for up to 12 doses. [facility] butalbital- acetaminoph en-caff 50-325-40 mg tablet 2023-0 11-03 00:00: 00 Yes [id number] 1{tbl} Take 1 tablet by mouth every 6 (six) hours as needed for Pain (scale 7-10) or Pain (scale 4-6) for up to 12 doses. [facility] butalbital- acetaminoph en-caff 50-325-40 mg tablet 2023-0 11-03 00:00: 00 Yes [id number] 1{tbl} Take 1 tablet by mouth every 6 (six) hours as needed for Pain (scale 7-10) or Pain (scale 4-6) for up to 12 doses. [facility] butalbital- acetaminoph en-caff 50-325-40 mg tablet 3-0 11-03 00:00: 00 Yes [id number] 1{tbl} Take 1 tablet by mouth every 6 (six) hours as needed for Pain (scale 7-10) or Pain (scale 4-6) for up to 12 doses. [facility] [facility] [place] [facility] butalbital- acetaminoph en-caff 50-325-40 mg tablet 3-0 11-03 00:00: 00 Yes [id number] 1{tbl} Take 1 tablet by mouth every 6 (six) hours as needed for Pain (scale 7-10) or Pain (scale 4-6) for up to 12 doses. [facility] [place] [facility] butalbital- acetaminoph en-caff 50-325-40 mg tablet 3-0 11-03 00:00: 00 Yes [id number] 1{tbl} Take 1 tablet by mouth every 6 (six) hours as needed for Pain (scale 7-10) or Pain (scale 4-6) for up to 12 doses. [facility] [place] [facility] butalbital- acetaminoph en-caff 50-325-40 mg tablet 3-0 11-03 00:00: 00 Yes [id number] 1{tbl} Take 1 tablet by mouth every 6 (six) hours as needed for Pain (scale 7-10) or Pain (scale 4-6) for up to 12 doses. [facility] [place] [facility] butalbital- acetaminoph en-caff 50-325-40 mg tablet 3-0 11-03 00:00: 00 Yes [id number] 1{tbl} Take 1 tablet by mouth every 6 (six) hours as needed for Pain (scale 7-10) or Pain (scale 4-6) for up to 12 doses. [facility] [place] [facility] butalbital- acetaminoph en-caff 50-325-40 mg tablet 2023-0 11-03 00:00: 00 Yes [id number] 1{tbl} Take 1 tablet by mouth every 6 (six) hours as needed for Pain (scale 7-10) or Pain (scale 4-6) for up to 12 doses. [facility] butalbital- acetaminoph en-caff 50-325-40 mg tablet 2022-0 11-03 00:00: 00 Yes [id number] 1{tbl} Take 1 tablet by mouth every 6 (six) hours as needed for Pain (scale 7-10) or Pain (scale 4-6) for up to 12 doses. [facility] [place] [facility] butalbital- acetaminoph en-caff 50-325-40 mg tablet 2022-0 11-03 00:00: 00 Yes [id number] 1{tbl} Take 1 tablet by mouth every 6 (six) hours as needed for Pain (scale 7-10) or Pain (scale 4-6) for up to 12 doses. [facility] [place] [facility] butalbital- acetaminoph en-caff 50-325-40 mg tablet 2022-0 11-03 00:00: 00 Yes [id number] 1{tbl} Take 1 tablet by mouth every 6 (six) hours as needed for Pain (scale 7-10) or Pain (scale 4-6) for up to 12 doses. [facility] [place] [facility] butalbital- acetaminoph en-caff 50-325-40 mg tablet 2022-0 11-03 00:00: 00 Yes [id number] 1{tbl} Take 1 tablet by mouth every 6 (six) hours as needed for Pain (scale 7-10) or Pain (scale 4-6) for up to 12 doses. [facility] [place] [facility] butalbital- acetaminoph en-caff 50-325-40 mg tablet 3-0 11-03 00:00: 00 Yes [id number] 1{tbl} Take 1 tablet by mouth every 6 (six) hours as needed for Pain (scale 7-10) or Pain (scale 4-6) for up to 12 doses. [facility] [place] [facility]oph [facility]-caff 50-325-40 mg tablet 3-0 11-03 00:00: 00 Yes [id number] 1{tbl} Take 1 tablet by mouth every 6 (six) hours as needed for Pain (scale 7-10) or Pain (scale 4-6) for up to 12 doses. [facility] [place] [facility] butalbital- acetaminoph en-caff 50-325-40 mg tablet 3-0 11-03 00:00: 00 Yes [id number] 1{tbl} Take 1 tablet by mouth every 6 (six) hours as needed for Pain (scale 7-10) or Pain (scale 4-6) for up to 12 doses. [facility] [place] [facility] butalbital- acetaminoph en-caff 50-325-40 mg tablet 2022-0 11-03 00:00: 00 Yes [id number] 1{tbl} Take 1 tablet by mouth every 6 (six) hours as needed for Pain (scale 7-10) or Pain (scale 4-6) for up to 12 doses. [facility] [place] [facility] butalbital- acetaminoph en-caff 50-325-40 mg tablet 3-0 11-03 00:00: 00 Yes [id number] 1{tbl} Take 1 tablet by mouth every 6 (six) hours as needed for Pain (scale 7-10) or Pain (scale 4-6) for up to 12 doses. [facility] [place] [facility]aminoph en-caff 50-325-40 mg tablet 3-0 11-03 00:00: 00 Yes [id number] 1{tbl} Take 1 tablet by mouth every 6 (six) hours as needed for Pain (scale 7-10) or Pain (scale 4-6) for up to 12 doses. [facility] [place] [facility]- acetaminoph en-caff 50-325-40 mg tablet 3-0 11-03 00:00: 00 Yes [id number] 1{tbl} Take 1 tablet by mouth every 6 (six) hours as needed for Pain (scale 7-10) or Pain (scale 4-6) for up to 12 doses. [facility] [place] [facility]- acetaminoph en-caff 50-325-40 mg tablet 2023-0 11-03 00:00: 00 Yes [id number] 1{tbl} Take 1 tablet by mouth every 6 (six) hours as needed for Pain (scale 7-10) or Pain (scale 4-6) for up to 12 doses. [facility] [place] [facility] butalbital- acetaminoph en-caff 50-325-40 mg tablet 3-0 11-03 00:00: 00 Yes [id number] 1{tbl} Take 1 tablet by mouth every 6 (six) hours as needed for Pain (scale 7-10) or Pain (scale 4-6) for up to 12 doses. [facility] [place] [facility] butalbital- acetaminoph en-caff 50-325-40 mg tablet 3-0 11-03 00:00: 00 Yes [id number] 1{tbl} Take 1 tablet by mouth every 6 (six) hours as needed for Pain (scale 7-10) or Pain (scale 4-6) for up to 12 doses. [facility] [place] [facility]- acetaminoph en-caff 50-325-40 mg tablet 3-0 11-03 00:00: 00 Yes [id number] 1{tbl} Take 1 tablet by mouth every 6 (six) hours as needed for Pain (scale 7-10) or Pain (scale 4-6) for up to 12 doses. [facility] [place] [facility] butalbital- acetaminoph en-caff 50-325-40 mg tablet 3-0 11-03 00:00: 00 Yes [id number] 1{tbl} Take 1 tablet by mouth every 6 (six) hours as needed for Pain (scale 7-10) or Pain (scale 4-6) for up to 12 doses. [facility] [place] [facility]- acetaminoph en-caff 50-325-40 mg tablet 3-0 11-03 00:00: 00 Yes [id number] 1{tbl} Take 1 tablet by mouth every 6 (six) hours as needed for Pain (scale 7-10) or Pain (scale 4-6) for up to 12 doses. [facility] [place] [facility]- acetaminoph en-caff 50-325-40 mg tablet 2023-0 11-03 00:00: 00 Yes [id number] 1{tbl} Take 1 tablet by mouth every 6 (six) hours as needed for Pain (scale 7-10) or Pain (scale 4-6) for up to 12 doses. [facility] peg-electro lyte soln 236-22.74-6 .74 -5.86 gram solution 0 10-19 00:00: 00 Yes [id number] Take as directed before colonoscop y [facility] peg-electro lyte soln 236-22.74-6 .74 -5.86 gram solution 10-19 00:00: 00 Yes [id number] Take as directed before colonoscop y [facility] peg-electro lyte soln 236-22.74-6 .74 -5.86 gram solution 10-19 00:00: 00 Yes [id number] Take as directed before colonoscop y [facility] peg-electro lyte soln 236-22.74-6 .74 -5.86 gram solution 10-19 00:00: 00 Yes [id number] Take as directed before colonoscop y [facility] peg-electro lyte soln 236-22.74-6 .74 -5.86 gram solution 0 10-19 00:00: 00 Yes [id number] Take as directed before colonoscop y [facility] peg-electro lyte soln 236-22.74-6 .74 -5.86 gram solution 0 10-19 00:00: 00 Yes [id number] Take as directed before colonoscop y [facility] peg-electro lyte soln 236-22.74-6 .74 -5.86 gram solution 10-19 00:00: 00 11-03 00:00 :00 No [id number] Take as directed before colonoscop y [facility] peg-electro lyte soln 236-22.74-6 .74 -5.86 gram solution 10-19 00:00: 00 11-03 00:00 :00 No [id number] Take as directed before colonoscop y [facility] peg-electro lyte soln 236-22.74-6 .74 -5.86 gram solution 2023-0 9-07 00:00: 00 11-03 00:00 :00 No [id number] Take as directed before colonoscop y [facility] peg-electro lyte soln 236-22.74-6 .74 -5.86 gram solution 0 9-07 00:00: 00 11-03 00:00 :00 No [id number] Take as directed before colonoscop y [facility] peg-electro lyte soln 236-22.74-6 .74 -5.86 gram solution 0 9-07 00:00: 00 11-03 00:00 :00 No [id number] Take as directed before colonoscop y [facility] peg-electro lyte soln 236-22.74-6 .74 -5.86 gram solution - 00:00: 00 11-03 00:00 :00 No [id number] Take as directed before colonoscop y [facility] peg-electro lyte soln 236-22.74-6 .74 -5.86 gram solution 10-19 00:00: 00 11-03 00:00 :00 No [id number] Take as directed before colonoscop y [facility] peg-electro lyte soln 236-22.74-6 .74 -5.86 gram solution 10-19 00:00: 00 11-03 00:00 :00 No [id number] Take as directed before colonoscop y [facility] busPIRone 15 mg tablet 10-04 00:00: 00 Yes [id number] 15mg Take 1 tablet by mouth in the morning and 1 tablet in the evening. [facility] busPIRone 15 mg tablet 10-04 00:00: 00 Yes [id number] 15mg Take 1 tablet by mouth in the morning and 1 tablet in the evening. [facility] busPIRone 15 mg tablet 10-04 00:00: 00 Yes [id number] 15mg Take 1 tablet by mouth in the morning and 1 tablet in the evening. [facility] busPIRone 15 mg tablet 3-0 8 00:00: 00 Yes [id number] 15mg Take 1 tablet by mouth in the morning and 1 tablet in the evening. [facility] busPIRone 15 mg tablet 3-0 10-04 00:00: 00 Yes [id number] 15mg Take 1 tablet by mouth in the morning and 1 tablet in the evening. [facility] busPIRone 15 mg tablet 3-0 8 00:00: 00 Yes [id number] 15mg Take 1 tablet by mouth in the morning and 1 tablet in the evening. [facility] busPIRone 15 mg tablet 3-0 10-04 00:00: 00 Yes [id number] 15mg Take 1 tablet by mouth in the morning and 1 tablet in the evening. [facility] busPIRone 15 mg tablet 3-0 10-04 00:00: 00 Yes [id number] 15mg Take 1 tablet by mouth in the morning and 1 tablet in the evening. [facility] busPIRone 15 mg tablet 3-0 10-04 00:00: 00 Yes [id number] 15mg Take 1 tablet by mouth in the morning and 1 tablet in the evening. [facility] busPIRone 15 mg tablet 3-0 10-04 00:00: 00 Yes [id number] 15mg Take 1 tablet by mouth in the morning and 1 tablet in the evening. [facility] busPIRone 15 mg tablet 3-0 10-04 00:00: 00 Yes [id number] 15mg Take 1 tablet by mouth in the morning and 1 tablet in the evening. [facility] busPIRone 15 mg tablet 3-0 10-04 00:00: 00 Yes [id number] 15mg Take 1 tablet by mouth in the morning and 1 tablet in the evening. [facility] busPIRone 15 mg tablet 3-0 10-04 00:00: 00 Yes [id number] 15mg Take 1 tablet by mouth in the morning and 1 tablet in the evening. [facility] busPIRone 15 mg tablet 3-0 8 00:00: 00 Yes [id number] 15mg Take 1 tablet by mouth in the morning and 1 tablet in the evening. [facility] busPIRone 15 mg tablet 3-0 8 00:00: 00 Yes [id number] 15mg Take 1 tablet by mouth in the morning and 1 tablet in the evening. [facility] busPIRone 15 mg tablet 3-0 8 00:00: 00 Yes [id number] 15mg Take 1 tablet by mouth in the morning and 1 tablet in the evening. [facility] busPIRone 15 mg tablet 3-0 8 00:00: 00 Yes [id number] 15mg Take 1 tablet by mouth in the morning and 1 tablet in the evening. [facility] busPIRone 15 mg tablet 3-0 10-04 00:00: 00 Yes [id number] 15mg Take 1 tablet by mouth in the morning and 1 tablet in the evening. [facility] busPIRone 15 mg tablet 3-0 8 00:00: 00 Yes [id number] 15mg Take 1 tablet by mouth in the morning and 1 tablet in the evening. [facility] busPIRone 15 mg tablet 3-0 10-04 00:00: 00 Yes [id number] 15mg Take 1 tablet by mouth in the morning and 1 tablet in the evening. [facility] busPIRone 15 mg tablet 3-0 10-04 00:00: 00 Yes [id number] 15mg Take 1 tablet by mouth in the morning and 1 tablet in the evening. [facility] busPIRone 15 mg tablet 3-0 8 00:00: 00 Yes [id number] 15mg Take 1 tablet by mouth in the morning and 1 tablet in the evening. [facility] busPIRone 15 mg tablet 3-0 8 00:00: 00 Yes [id number] 15mg Take 1 tablet by mouth in the morning and 1 tablet in the evening. [facility] busPIRone 15 mg tablet 3-0 8- 00:00: 00 Yes [id number] 15mg Take 1 tablet by mouth in the morning and 1 tablet in the evening. [facility] busPIRone 15 mg tablet 3-0 8- 00:00: 00 Yes [id number] 15mg Take 1 tablet by mouth in the morning and 1 tablet in the evening. [facility] busPIRone 15 mg tablet 3-0 8- 00:00: 00 Yes [id number] 15mg Take 1 tablet by mouth in the morning and 1 tablet in the evening. [facility] busPIRone 15 mg tablet 3-0 8 00:00: 00 Yes [id number] 15mg Take 1 tablet by mouth in the morning and 1 tablet in the evening. [facility] busPIRone 15 mg tablet 3-0 8 00:00: 00 Yes [id number] 15mg Take 1 tablet by mouth in the morning and 1 tablet in the evening. [facility] busPIRone 15 mg tablet 3-0 10-04 00:00: 00 Yes [id number] 15mg Take 1 tablet by mouth in the morning and 1 tablet in the evening. [facility] busPIRone 15 mg tablet 3-0 10-04 00:00: 00 Yes [id number] 15mg Take 1 tablet by mouth in the morning and 1 tablet in the evening. [facility] busPIRone 15 mg tablet 3-0 10-04 00:00: 00 Yes [id number] 15mg Take 1 tablet by mouth in the morning and 1 tablet in the evening. [facility] busPIRone 15 mg tablet 3-0 10-04 00:00: 00 Yes [id number] 15mg Take 1 tablet by mouth in the morning and 1 tablet in the evening. [facility] busPIRone 15 mg tablet 3-0 10-04 00:00: 00 Yes [id number] 15mg Take 1 tablet by mouth in the morning and 1 tablet in the evening. [facility] busPIRone 15 mg tablet 3-0 8 00:00: 00 Yes [id number] 15mg Take 1 tablet by mouth in the morning and 1 tablet in the evening. [facility] busPIRone 15 mg tablet 3-0 8- 00:00: 00 Yes [id number] 15mg Take 1 tablet by mouth in the morning and 1 tablet in the evening. [facility] busPIRone 15 mg tablet 2022-0 8 00:00: 00 Yes [id number] 15mg Take 1 tablet by mouth in the morning and 1 tablet in the evening. [facility] busPIRone 15 mg tablet 2022-0 8 00:00: 00 Yes [id number] 15mg Take 1 tablet by mouth in the morning and 1 tablet in the evening. [facility] busPIRone 15 mg tablet 2022-0 10-04 00:00: 00 12-13 00:00 :00 No [id number] 15mg Take 1 tablet by mouth in the morning and 1 tablet in the evening. [facility] busPIRone 15 mg tablet 2022-0 10-04 00:00: 00 12-13 00:00 :00 No [id number] 15mg Take 1 tablet by mouth in the morning and 1 tablet in the evening. [facility] busPIRone 15 mg tablet 2022-0 10-04 00:00: 00 12-13 00:00 :00 No [id number] 15mg Take 1 tablet by mouth in the morning and 1 tablet in the evening. [facility] busPIRone 15 mg tablet 2022-0 10-04 00:00: 00 12-13 00:00 :00 No [id number] 15mg Take 1 tablet by mouth in the morning and 1 tablet in the evening. [facility] busPIRone 15 mg tablet 2022-0 10-04 00:00: 00 12-13 00:00 :00 No [id number] 15mg Take 1 tablet by mouth in the morning and 1 tablet in the evening. [facility] busPIRone 15 mg tablet 2022-0 10-04 00:00: 00 12-13 00:00 :00 No [id number] 15mg Take 1 tablet by mouth in the morning and 1 tablet in the evening. [facility] clonazePAM 1 mg tablet 2022-0 8-17 00:00: 00 Yes [id number] Take 1 tablet by mouth twice daily as needed for anxiety. [facility] clonazePAM 1 mg tablet 2023-0 8-17 00:00: 00 Yes [id number] Take 1 tablet by mouth twice daily as needed for anxiety. [facility] clonazePAM 1 mg tablet 2023-0 8-17 00:00: 00 Yes [id number] Take 1 tablet by mouth twice daily as needed for anxiety. [facility] clonazePAM 1 mg tablet 2023-0 8-17 00:00: 00 Yes [id number] Take 1 tablet by mouth twice daily as needed for anxiety. [facility] clonazePAM 1 mg tablet 2023-0 8-17 00:00: 00 Yes [id number] Take 1 tablet by mouth twice daily as needed for anxiety. [facility] clonazePAM 1 mg tablet 2023-0 8-17 00:00: 00 Yes [id number] Take 1 tablet by mouth twice daily as needed for anxiety. [facility] clonazePAM 1 mg tablet 2023-0 8-17 00:00: 00 Yes [id number] Take 1 tablet by mouth twice daily as needed for anxiety. [facility] clonazePAM 1 mg tablet 2023-0 8-17 00:00: 00 Yes [id number] Take 1 tablet by mouth twice daily as needed for anxiety. [facility] clonazePAM 1 mg tablet 2023-0 8-17 00:00: 00 Yes [id number] Take 1 tablet by mouth twice daily as needed for anxiety. [facility] clonazePAM 1 mg tablet 2023-0 8-17 00:00: 00 Yes [id number] Take 1 tablet by mouth twice daily as needed for anxiety. [facility] clonazePAM 1 mg tablet 2023-0 8-17 00:00: 00 Yes [id number] Take 1 tablet by mouth twice daily as needed for anxiety. [facility] clonazePAM 1 mg tablet 2023-0 8-17 00:00: 00 Yes [id number] Take 1 tablet by mouth twice daily as needed for anxiety. [facility] clonazePAM 1 mg tablet 2023-0 8-17 00:00: 00 Yes [id number] Take 1 tablet by mouth twice daily as needed for anxiety. [facility] clonazePAM 1 mg tablet 2023-0 8-17 00:00: 00 Yes [id number] Take 1 tablet by mouth twice daily as needed for anxiety. [facility] clonazePAM 1 mg tablet 2023-0 8-17 00:00: 00 Yes [id number] Take 1 tablet by mouth twice daily as needed for anxiety. [facility] clonazePAM 1 mg tablet 2023-0 8-17 00:00: 00 Yes [id number] Take 1 tablet by mouth twice daily as needed for anxiety. [facility] clonazePAM 1 mg tablet 2023-0 8-17 00:00: 00 Yes [id number] Take 1 tablet by mouth twice daily as needed for anxiety. [facility] clonazePAM 1 mg tablet 2023-0 8-17 00:00: 00 Yes [id number] Take 1 tablet by mouth twice daily as needed for anxiety. [facility] clonazePAM 1 mg tablet 2023-0 8-17 00:00: 00 Yes [id number] Take 1 tablet by mouth twice daily as needed for anxiety. [facility] clonazePAM 1 mg tablet 2023-0 8-17 00:00: 00 Yes [id number] Take 1 tablet by mouth twice daily as needed for anxiety. [facility] clonazePAM 1 mg tablet 2023-0 8-17 00:00: 00 Yes [id number] Take 1 tablet by mouth twice daily as needed for anxiety. [facility] clonazePAM 1 mg tablet 2023-0 8-17 00:00: 00 Yes [id number] Take 1 tablet by mouth twice daily as needed for anxiety. [facility] clonazePAM 1 mg tablet 2023-0 8-17 00:00: 00 Yes [id number] Take 1 tablet by mouth twice daily as needed for anxiety. [facility] clonazePAM 1 mg tablet 2023-0 8-17 00:00: 00 Yes [id number] Take 1 tablet by mouth twice daily as needed for anxiety. [facility] clonazePAM 1 mg tablet 2023-0 8-17 00:00: 00 Yes [id number] Take 1 tablet by mouth twice daily as needed for anxiety. [facility] clonazePAM 1 mg tablet 2023-0 8-17 00:00: 00 Yes [id number] Take 1 tablet by mouth twice daily as needed for anxiety. [facility] clonazePAM 1 mg tablet 2023-0 8-17 00:00: 00 Yes [id number] Take 1 tablet by mouth twice daily as needed for anxiety. [facility] clonazePAM 1 mg tablet 2023-0 8-17 00:00: 00 Yes [id number] Take 1 tablet by mouth twice daily as needed for anxiety. [facility] clonazePAM 1 mg tablet 2023-0 8-17 00:00: 00 Yes [id number] Take 1 tablet by mouth twice daily as needed for anxiety. [facility] clonazePAM 1 mg tablet 2023-0 8-17 00:00: 00 Yes [id number] Take 1 tablet by mouth twice daily as needed for anxiety. [facility] clonazePAM 1 mg tablet 2023-0 8-17 00:00: 00 Yes [id number] Take 1 tablet by mouth twice daily as needed for anxiety. [facility] clonazePAM 1 mg tablet 2023-0 8-17 00:00: 00 Yes [id number] Take 1 tablet by mouth twice daily as needed for anxiety. [facility] clonazePAM 1 mg tablet 2023-0 8-17 00:00: 00 Yes [id number] Take 1 tablet by mouth twice daily as needed for anxiety. [facility] clonazePAM 1 mg tablet 2023-0 8-17 00:00: 00 Yes [id number] Take 1 tablet by mouth twice daily as needed for anxiety. [facility] clonazePAM 1 mg tablet 2023-0 8-17 00:00: 00 Yes [id number] Take 1 tablet by mouth twice daily as needed for anxiety. [facility] clonazePAM 1 mg tablet 2023-0 8-17 00:00: 00 Yes [id number] Take 1 tablet by mouth twice daily as needed for anxiety. [facility] clonazePAM 1 mg tablet 2023-0 8-17 00:00: 00 Yes [id number] Take 1 tablet by mouth twice daily as needed for anxiety. [facility] clonazePAM 1 mg tablet 2023-0 8-17 00:00: 00 Yes [id number] Take 1 tablet by mouth twice daily as needed for anxiety. [facility] clonazePAM 1 mg tablet 2023-0 8-17 00:00: 00 Yes [id number] Take 1 tablet by mouth twice daily as needed for anxiety. [facility] clonazePAM 1 mg tablet 3-0 8-17 00:00: 00 Yes [id number] Take 1 tablet by mouth twice daily as needed for anxiety. [facility] [facility] clonazePAM 1 mg tablet 3-0 8-17 00:00: 00 Yes [id number] Take 1 tablet by mouth twice daily as needed for anxiety. [facility] [place] [facility] clonazePAM 1 mg tablet 3-0 8-17 00:00: 00 Yes [id number] Take 1 tablet by mouth twice daily as needed for anxiety. [facility] [place] [facility] clonazePAM 1 mg tablet 3-0 8-17 00:00: 00 Yes [id number] Take 1 tablet by mouth twice daily as needed for anxiety. [facility] [place] [facility] tablet 3-0 8-17 00:00: 00 Yes [id number] Take 1 tablet by mouth twice daily as needed for anxiety. [facility] [place] [facility] clonazePAM 1 mg tablet 3-0 8-17 00:00: 00 12-20 00:00 :00 No [id number] Take 1 tablet by mouth twice daily as needed for anxiety. [facility] [place] mg tablet 3-0 8-17 00:00: 00 12-20 00:00 :00 No [id number] Take 1 tablet by mouth twice daily as needed for anxiety. [facility] [place] 1 mg tablet 3-0 8-17 00:00: 00 12-20 00:00 :00 No [id number] Take 1 tablet by mouth twice daily as needed for anxiety. [facility] [place] [facility] [facility] clonazePAM 1 mg tablet 3-0 8-17 00:00: 00 12-20 00:00 :00 No [id number] Take 1 tablet by mouth twice daily as needed for anxiety. [facility] mg tablet 3-0 8-17 00:00: 00 12-20 00:00 :00 No [id number] Take 1 tablet by mouth twice daily as needed for anxiety. [facility] DULoxetine 60 mg capsule 3-0 8-15 00:00: 00 Yes [id number] 60mg Take 1 capsule by mouth in the morning and 1 capsule in the evening. [facility] DULoxetine 60 mg capsule 2023-0 8-15 00:00: 00 Yes [id number] 60mg Take 1 capsule by mouth in the morning and 1 capsule in the evening. [facility] DULoxetine 60 mg capsule 2023-0 8-15 00:00: 00 Yes [id number] 60mg Take 1 capsule by mouth in the morning and 1 capsule in the evening. [facility] DULoxetine 60 mg capsule 2023-0 8-15 00:00: 00 Yes [id number] 60mg Take 1 capsule by mouth in the morning and 1 capsule in the evening. [facility] DULoxetine 60 mg capsule 2023-0 8-15 00:00: 00 Yes [id number] 60mg Take 1 capsule by mouth in the morning and 1 capsule in the evening. [facility] DULoxetine 60 mg capsule 2023-0 8-15 00:00: 00 Yes [id number] 60mg Take 1 capsule by mouth in the morning and 1 capsule in the evening. [facility] DULoxetine 60 mg capsule 2023-0 8-15 00:00: 00 Yes [id number] 60mg Take 1 capsule by mouth in the morning and 1 capsule in the evening. [facility] DULoxetine 60 mg capsule 2023-0 8-15 00:00: 00 Yes [id number] 60mg Take 1 capsule by mouth in the morning and 1 capsule in the evening. [facility] DULoxetine 60 mg capsule 2023-0 8-15 00:00: 00 Yes [id number] 60mg Take 1 capsule by mouth in the morning and 1 capsule in the evening. [facility] DULoxetine 60 mg capsule 2023-0 8-15 00:00: 00 Yes [id number] 60mg Take 1 capsule by mouth in the morning and 1 capsule in the evening. [facility] DULoxetine 60 mg capsule 2023-0 8-15 00:00: 00 Yes [id number] 60mg Take 1 capsule by mouth in the morning and 1 capsule in the evening. [facility] DULoxetine 60 mg capsule 2023-0 8-15 00:00: 00 Yes [id number] 60mg Take 1 capsule by mouth in the morning and 1 capsule in the evening. [facility] DULoxetine 60 mg capsule 2023-0 8-15 00:00: 00 Yes [id number] 60mg Take 1 capsule by mouth in the morning and 1 capsule in the evening. [facility] DULoxetine 60 mg capsule 3-0 8-15 00:00: 00 Yes [id number] 60mg Take 1 capsule by mouth in the morning and 1 capsule in the evening. [facility] DULoxetine 60 mg capsule 2023-0 8-15 00:00: 00 Yes [id number] 60mg Take 1 capsule by mouth in the morning and 1 capsule in the evening. [facility] DULoxetine 60 mg capsule 3-0 8-15 00:00: 00 Yes [id number] 60mg Take 1 capsule by mouth in the morning and 1 capsule in the evening. [facility] DULoxetine 60 mg capsule 3-0 8-15 00:00: 00 Yes [id number] 60mg Take 1 capsule by mouth in the morning and 1 capsule in the evening. [facility] DULoxetine 60 mg capsule 3-0 8-15 00:00: 00 Yes [id number] 60mg Take 1 capsule by mouth in the morning and 1 capsule in the evening. [facility] DULoxetine 60 mg capsule 3-0 8-15 00:00: 00 Yes [id number] 60mg Take 1 capsule by mouth in the morning and 1 capsule in the evening. [facility] DULoxetine 60 mg capsule 3-0 8-15 00:00: 00 Yes [id number] 60mg Take 1 capsule by mouth in the morning and 1 capsule in the evening. [facility] DULoxetine 60 mg capsule 3-0 8-15 00:00: 00 Yes [id number] 60mg Take 1 capsule by mouth in the morning and 1 capsule in the evening. [facility] DULoxetine 60 mg capsule 3-0 8-15 00:00: 00 Yes [id number] 60mg Take 1 capsule by mouth in the morning and 1 capsule in the evening. [facility] DULoxetine 60 mg capsule 3-0 8-15 00:00: 00 Yes [id number] 60mg Take 1 capsule by mouth in the morning and 1 capsule in the evening. [facility] DULoxetine 60 mg capsule 2023-0 8-15 00:00: 00 Yes [id number] 60mg Take 1 capsule by mouth in the morning and 1 capsule in the evening. [facility] DULoxetine 60 mg capsule 2023-0 8-15 00:00: 00 Yes [id number] 60mg Take 1 capsule by mouth in the morning and 1 capsule in the evening. [facility] DULoxetine 60 mg capsule 3-0 8-15 00:00: 00 Yes [id number] 60mg Take 1 capsule by mouth in the morning and 1 capsule in the evening. [facility] DULoxetine 60 mg capsule 3-0 8-15 00:00: 00 11-22 00:00 :00 No [id number] 60mg Take 1 capsule by mouth in the morning and 1 capsule in the evening. [facility] DULoxetine 60 mg capsule 3-0 8-15 00:00: 00 11-22 00:00 :00 No [id number] 60mg Take 1 capsule by mouth in the morning and 1 capsule in the evening. [facility] DULoxetine 60 mg capsule 3-0 8-15 00:00: 00 11-22 00:00 :00 No [id number] 60mg Take 1 capsule by mouth in the morning and 1 capsule in the evening. [facility] DULoxetine 60 mg capsule 3-0 8-15 00:00: 00 11-22 00:00 :00 No [id number] 60mg Take 1 capsule by mouth in the morning and 1 capsule in the evening. [facility] DULoxetine 60 mg capsule 3-0 8-15 00:00: 00 11-22 00:00 :00 No [id number] 60mg Take 1 capsule by mouth in the morning and 1 capsule in the evening. [facility] DULoxetine 60 mg capsule 3-0 8-15 00:00: 00 11-22 00:00 :00 No [id number] 60mg Take 1 capsule by mouth in the morning and 1 capsule in the evening. [facility] DULoxetine 60 mg capsule 3-0 8-15 00:00: 00 11-22 00:00 :00 No [id number] 60mg Take 1 capsule by mouth in the morning and 1 capsule in the evening. [facility] DULoxetine 60 mg capsule 3-0 8-15 00:00: 00 11-22 00:00 :00 No [id number] 60mg Take 1 capsule by mouth in the morning and 1 capsule in the evening. [facility] DULoxetine 60 mg capsule 3-0 8-15 00:00: 00 11-22 00:00 :00 No [id number] 60mg Take 1 capsule by mouth in the morning and 1 capsule in the evening. [facility] DULoxetine 60 mg capsule 2022-0 8-15 00:00: 00 11-22 00:00 :00 No [id number] 60mg Take 1 capsule by mouth in the morning and 1 capsule in the evening. [facility] DULoxetine 60 mg capsule 2022-0 8-15 00:00: 00 11-22 00:00 :00 No [id number] 60mg Take 1 capsule by mouth in the morning and 1 capsule in the evening. [facility] DULoxetine 60 mg capsule 2022-0 8-15 00:00: 00 11-22 00:00 :00 No [id number] 60mg Take 1 capsule by mouth in the morning and 1 capsule in the evening. [facility] DULoxetine 60 mg capsule 3-0 8-15 00:00: 00 11-22 00:00 :00 No [id number] 60mg Take 1 capsule by mouth in the morning and 1 capsule in the evening. [facility] lithium carbonate CR 450 mg SR tablet 09-13 00:00: 00 Yes [id number] 900mg Take 2 tablets by mouth at bedtime. [facility] busPIRone 10 mg tablet 09-13 00:00: 00 Yes [id number] 10mg Take 1 tablet by mouth in the morning and 1 tablet in the evening. [facility] lamoTRIgine 100 mg tablet 09-13 00:00: 00 Yes [id number] 100mg Take 1 tablet by mouth in the morning and 1 tablet in the evening. [facility] lithium carbonate CR 450 mg SR tablet 2022-0 09-13 00:00: 00 Yes [id number] 900mg Take 2 tablets by mouth at bedtime. [facility] busPIRone 10 mg tablet 2022-0 09-13 00:00: 00 Yes [id number] 10mg Take 1 tablet by mouth in the morning and 1 tablet in the evening. [facility] lamoTRIgine 100 mg tablet 2022-0 09-13 00:00: 00 Yes [id number] 100mg Take 1 tablet by mouth in the morning and 1 tablet in the evening. [facility] lithium carbonate CR 450 mg SR tablet 2022-0 09-13 00:00: 00 Yes [id number] 900mg Take 2 tablets by mouth at bedtime. [facility] busPIRone 10 mg tablet 2022-0 09-13 00:00: 00 Yes [id number] 10mg Take 1 tablet by mouth in the morning and 1 tablet in the evening. [facility] lamoTRIgine 100 mg tablet 2022-0 09-13 00:00: 00 Yes [id number] 100mg Take 1 tablet by mouth in the morning and 1 tablet in the evening. [facility] lithium carbonate CR 450 mg SR tablet 2022-0 09-13 00:00: 00 Yes [id number] 900mg Take 2 tablets by mouth at bedtime. [facility] busPIRone 10 mg tablet 2022-0 09-13 00:00: 00 Yes [id number] 10mg Take 1 tablet by mouth in the morning and 1 tablet in the evening. [facility] lamoTRIgine 100 mg tablet 2022-0 09-13 00:00: 00 Yes [id number] 100mg Take 1 tablet by mouth in the morning and 1 tablet in the evening. [facility] lithium carbonate CR 450 mg SR tablet 3-0 09-13 00:00: 00 Yes [id number] 900mg Take 2 tablets by mouth at bedtime. [facility] lamoTRIgine 100 mg tablet 3-0 09-13 00:00: 00 Yes [id number] 100mg Take 1 tablet by mouth in the morning and 1 tablet in the evening. [facility] lithium carbonate CR 450 mg SR tablet 2022-0 09-13 00:00: 00 Yes [id number] 900mg Take 2 tablets by mouth at bedtime. [facility] lamoTRIgine 100 mg tablet 2022-0 09-13 00:00: 00 Yes [id number] 100mg Take 1 tablet by mouth in the morning and 1 tablet in the evening. [facility] lithium carbonate CR 450 mg SR tablet 2022-0 09-13 00:00: 00 Yes [id number] 900mg Take 2 tablets by mouth at bedtime. [facility] lamoTRIgine 100 mg tablet 2022-0 09-13 00:00: 00 Yes [id number] 100mg Take 1 tablet by mouth in the morning and 1 tablet in the evening. [facility] lithium carbonate CR 450 mg SR tablet 2022-0 09-13 00:00: 00 Yes [id number] 900mg Take 2 tablets by mouth at bedtime. [facility] lamoTRIgine 100 mg tablet 2022-0 09-13 00:00: 00 Yes [id number] 100mg Take 1 tablet by mouth in the morning and 1 tablet in the evening. [facility] lithium carbonate CR 450 mg SR tablet 2022-0 09-13 00:00: 00 Yes [id number] 900mg Take 2 tablets by mouth at bedtime. [facility] lamoTRIgine 100 mg tablet 2022-0 09-13 00:00: 00 Yes [id number] 100mg Take 1 tablet by mouth in the morning and 1 tablet in the evening. [facility] lithium carbonate CR 450 mg SR tablet 2022-0 09-13 00:00: 00 Yes [id number] 900mg Take 2 tablets by mouth at bedtime. [facility] lamoTRIgine 100 mg tablet 2022-0 09-13 00:00: 00 Yes [id number] 100mg Take 1 tablet by mouth in the morning and 1 tablet in the evening. [facility] lithium carbonate CR 450 mg SR tablet 2022-0 09-13 00:00: 00 Yes [id number] 900mg Take 2 tablets by mouth at bedtime. [facility] lamoTRIgine 100 mg tablet 3-0 09-13 00:00: 00 Yes [id number] 100mg Take 1 tablet by mouth in the morning and 1 tablet in the evening. [facility] lithium carbonate CR 450 mg SR tablet 3-0 8- 00:00: 00 Yes [id number] 900mg Take 2 tablets by mouth at bedtime. [facility] lamoTRIgine 100 mg tablet 3-0 8- 00:00: 00 Yes [id number] 100mg Take 1 tablet by mouth in the morning and 1 tablet in the evening. [facility] lithium carbonate CR 450 mg SR tablet 2022-0 8- 00:00: 00 Yes [id number] 900mg Take 2 tablets by mouth at bedtime. [facility] lamoTRIgine 100 mg tablet 3-0 8- 00:00: 00 Yes [id number] 100mg Take 1 tablet by mouth in the morning and 1 tablet in the evening. [facility] lithium carbonate CR 450 mg SR tablet 2022-0 - 00:00: 00 Yes [id number] 900mg Take 2 tablets by mouth at bedtime. [facility] lamoTRIgine 100 mg tablet 3-0 - 00:00: 00 Yes [id number] 100mg Take 1 tablet by mouth in the morning and 1 tablet in the evening. [facility] lithium carbonate CR 450 mg SR tablet 2022-0 09-13 00:00: 00 Yes [id number] 900mg Take 2 tablets by mouth at bedtime. [facility] lamoTRIgine 100 mg tablet 3-0 - 00:00: 00 Yes [id number] 100mg Take 1 tablet by mouth in the morning and 1 tablet in the evening. [facility] lithium carbonate CR 450 mg SR tablet 3-0 - 00:00: 00 Yes [id number] 900mg Take 2 tablets by mouth at bedtime. [facility] lamoTRIgine 100 mg tablet 3-0 8-02 00:00: 00 Yes [id number] 100mg Take 1 tablet by mouth in the morning and 1 tablet in the evening. [facility] lithium carbonate CR 450 mg SR tablet 3-0 8- 00:00: 00 Yes [id number] 900mg Take 2 tablets by mouth at bedtime. [facility] lamoTRIgine 100 mg tablet 3-0 09-13 00:00: 00 Yes [id number] 100mg Take 1 tablet by mouth in the morning and 1 tablet in the evening. [facility] lithium carbonate CR 450 mg SR tablet 2022-0 09-13 00:00: 00 Yes [id number] 900mg Take 2 tablets by mouth at bedtime. [facility] lamoTRIgine 100 mg tablet 3-0 8 00:00: 00 Yes [id number] 100mg Take 1 tablet by mouth in the morning and 1 tablet in the evening. [facility] lithium carbonate CR 450 mg SR tablet 2022-0 09-13 00:00: 00 Yes [id number] 900mg Take 2 tablets by mouth at bedtime. [facility] lamoTRIgine 100 mg tablet 2022-0 09-13 00:00: 00 Yes [id number] 100mg Take 1 tablet by mouth in the morning and 1 tablet in the evening. [facility] lithium carbonate CR 450 mg SR tablet 2022-0 09-13 00:00: 00 Yes [id number] 900mg Take 2 tablets by mouth at bedtime. [facility] lamoTRIgine 100 mg tablet 3-0 09-13 00:00: 00 Yes [id number] 100mg Take 1 tablet by mouth in the morning and 1 tablet in the evening. [facility] lithium carbonate CR 450 mg SR tablet 2022-0 09-13 00:00: 00 Yes [id number] 900mg Take 2 tablets by mouth at bedtime. [facility] lamoTRIgine 100 mg tablet 3-0 09-13 00:00: 00 Yes [id number] 100mg Take 1 tablet by mouth in the morning and 1 tablet in the evening. [facility] lithium carbonate CR 450 mg SR tablet 3-0 09-13 00:00: 00 Yes [id number] 900mg Take 2 tablets by mouth at bedtime. [facility] lamoTRIgine 100 mg tablet 3-0 09-13 00:00: 00 Yes [id number] 100mg Take 1 tablet by mouth in the morning and 1 tablet in the evening. [facility] lithium carbonate CR 450 mg SR tablet 3-0 09-13 00:00: 00 Yes [id number] 900mg Take 2 tablets by mouth at bedtime. [facility] lamoTRIgine 100 mg tablet 2022-0 09-13 00:00: 00 Yes [id number] 100mg Take 1 tablet by mouth in the morning and 1 tablet in the evening. [facility] lithium carbonate CR 450 mg SR tablet 2022-0 09-13 00:00: 00 Yes [id number] 900mg Take 2 tablets by mouth at bedtime. [facility] lamoTRIgine 100 mg tablet 2022-0 09-13 00:00: 00 Yes [id number] 100mg Take 1 tablet by mouth in the morning and 1 tablet in the evening. [facility] lithium carbonate CR 450 mg SR tablet 2022-0 09-13 00:00: 00 Yes [id number] 900mg Take 2 tablets by mouth at bedtime. [facility] lamoTRIgine 100 mg tablet 3-0 09-13 00:00: 00 Yes [id number] 100mg Take 1 tablet by mouth in the morning and 1 tablet in the evening. [facility] lithium carbonate CR 450 mg SR tablet 2022-0 09-13 00:00: 00 Yes [id number] 900mg Take 2 tablets by mouth at bedtime. [facility] lamoTRIgine 100 mg tablet 2022-0 09-13 00:00: 00 Yes [id number] 100mg Take 1 tablet by mouth in the morning and 1 tablet in the evening. [facility] lithium carbonate CR 450 mg SR tablet 2022-0 09-13 00:00: 00 Yes [id number] 900mg Take 2 tablets by mouth at bedtime. [facility] lamoTRIgine 100 mg tablet 3-0 09-13 00:00: 00 Yes [id number] 100mg Take 1 tablet by mouth in the morning and 1 tablet in the evening. [facility] lithium carbonate CR 450 mg SR tablet 2022-0 09-13 00:00: 00 Yes [id number] 900mg Take 2 tablets by mouth at bedtime. [facility] lamoTRIgine 100 mg tablet 3-0 09-13 00:00: 00 Yes [id number] 100mg Take 1 tablet by mouth in the morning and 1 tablet in the evening. [facility] lithium carbonate CR 450 mg SR tablet 2022-0 09-13 00:00: 00 Yes [id number] 900mg Take 2 tablets by mouth at bedtime. [facility] lamoTRIgine 100 mg tablet 2022-0 8- 00:00: 00 Yes [id number] 100mg Take 1 tablet by mouth in the morning and 1 tablet in the evening. [facility] lithium carbonate CR 450 mg SR tablet 2022-0 - 00:00: 00 Yes [id number] 900mg Take 2 tablets by mouth at bedtime. [facility] lamoTRIgine 100 mg tablet 3-0 8- 00:00: 00 Yes [id number] 100mg Take 1 tablet by mouth in the morning and 1 tablet in the evening. [facility] lithium carbonate CR 450 mg SR tablet 2022-0 8- 00:00: 00 Yes [id number] 900mg Take 2 tablets by mouth at bedtime. [facility] lamoTRIgine 100 mg tablet 2022-0 09-13 00:00: 00 Yes [id number] 100mg Take 1 tablet by mouth in the morning and 1 tablet in the evening. [facility] lithium carbonate CR 450 mg SR tablet 2022-0 09-13 00:00: 00 Yes [id number] 900mg Take 2 tablets by mouth at bedtime. [facility] lamoTRIgine 100 mg tablet 2022-0 09-13 00:00: 00 Yes [id number] 100mg Take 1 tablet by mouth in the morning and 1 tablet in the evening. [facility] lithium carbonate CR 450 mg SR tablet 2022-0 09-13 00:00: 00 Yes [id number] 900mg Take 2 tablets by mouth at bedtime. [facility] lamoTRIgine 100 mg tablet 3-0 8-02 00:00: 00 Yes [id number] 100mg Take 1 tablet by mouth in the morning and 1 tablet in the evening. [facility] lithium carbonate CR 450 mg SR tablet 2022-0 8- 00:00: 00 Yes [id number] 900mg Take 2 tablets by mouth at bedtime. [facility] lamoTRIgine 100 mg tablet 2023-0 8- 00:00: 00 Yes [id number] 100mg Take 1 tablet by mouth in the morning and 1 tablet in the evening. [facility] lithium carbonate CR 450 mg SR tablet 3-0 8- 00:00: 00 Yes [id number] 900mg Take 2 tablets by mouth at bedtime. [facility] lamoTRIgine 100 mg tablet 3-0 8- 00:00: 00 Yes [id number] 100mg Take 1 tablet by mouth in the morning and 1 tablet in the evening. [facility] lithium carbonate CR 450 mg SR tablet 2022-0 8 00:00: 00 Yes [id number] 900mg Take 2 tablets by mouth at bedtime. [facility] lamoTRIgine 100 mg tablet 3-0 8- 00:00: 00 Yes [id number] 100mg Take 1 tablet by mouth in the morning and 1 tablet in the evening. [facility] lamoTRIgine 100 mg tablet 3-0 8 00:00: 00 Yes [id number] 100mg Take 1 tablet by mouth in the morning and 1 tablet in the evening. [facility] lamoTRIgine 100 mg tablet 3-0 8- 00:00: 00 Yes [id number] 100mg Take 1 tablet by mouth in the morning and 1 tablet in the evening. [facility] lamoTRIgine 100 mg tablet 3-0 8- 00:00: 00 Yes [id number] 100mg Take 1 tablet by mouth in the morning and 1 tablet in the evening. [facility] lamoTRIgine 100 mg tablet 3-0 8-02 00:00: 00 Yes [id number] 100mg Take 1 tablet by mouth in the morning and 1 tablet in the evening. [facility] lamoTRIgine 100 mg tablet 3-0 8-02 00:00: 00 Yes [id number] 100mg Take 1 tablet by mouth in the morning and 1 tablet in the evening. [facility] lamoTRIgine 100 mg tablet 3-0 8-02 00:00: 00 Yes [id number] 100mg Take 1 tablet by mouth in the morning and 1 tablet in the evening. [facility] lamoTRIgine 100 mg tablet 3-0 8-02 00:00: 00 Yes [id number] 100mg Take 1 tablet by mouth in the morning and 1 tablet in the evening. [facility] lamoTRIgine 100 mg tablet 3-0 8- 00:00: 00 Yes [id number] 100mg Take 1 tablet by mouth in the morning and 1 tablet in the evening. [facility] lamoTRIgine 100 mg tablet 3-0 8- 00:00: 00 Yes [id number] 100mg Take 1 tablet by mouth in the morning and 1 tablet in the evening. [facility] lamoTRIgine 100 mg tablet 3-0 8- 00:00: 00 Yes [id number] 100mg Take 1 tablet by mouth in the morning and 1 tablet in the evening. [facility] lamoTRIgine 100 mg tablet 2022-0 8- 00:00: 00 12-20 00:00 :00 No [id number] 100mg Take 1 tablet by mouth in the morning and 1 tablet in the evening. [facility] lamoTRIgine 100 mg tablet 2022-0 8- 00:00: 00 12-20 00:00 :00 No [id number] 100mg Take 1 tablet by mouth in the morning and 1 tablet in the evening. [facility] lamoTRIgine 100 mg tablet 2022-0 8- 00:00: 00 12-20 00:00 :00 No [id number] 100mg Take 1 tablet by mouth in the morning and 1 tablet in the evening. [facility] lamoTRIgine 100 mg tablet 2022-0 8- 00:00: 00 12-20 00:00 :00 No [id number] 100mg Take 1 tablet by mouth in the morning and 1 tablet in the evening. [facility] lamoTRIgine 100 mg tablet 2022-0 8- 00:00: 00 12-20 00:00 :00 No [id number] 100mg Take 1 tablet by mouth in the morning and 1 tablet in the evening. [facility] lithium carbonate CR 450 mg SR tablet 2022-0 8- 00:00: 00 11-28 00:00 :00 No [id number] 900mg Take 2 tablets by mouth at bedtime. [facility] lithium carbonate CR 450 mg SR tablet 2022-0 8-02 00:00: 00 11-28 00:00 :00 No [id number] 900mg Take 2 tablets by mouth at bedtime. [facility] lithium carbonate CR 450 mg SR tablet 0 8- 00:00: 00 11-28 00:00 :00 No [id number] 900mg Take 2 tablets by mouth at bedtime. [facility] lithium carbonate CR 450 mg SR tablet 0 8- 00:00: 00 11-28 00:00 :00 No [id number] 900mg Take 2 tablets by mouth at bedtime. [facility] lithium carbonate CR 450 mg SR tablet 0 8- 00:00: 00 11-28 00:00 :00 No [id number] 900mg Take 2 tablets by mouth at bedtime. [facility] lithium carbonate CR 450 mg SR tablet 0 8- 00:00: 00 11-28 00:00 :00 No [id number] 900mg Take 2 tablets by mouth at bedtime. [facility] lithium carbonate CR 450 mg SR tablet 0 8-02 00:00: 00 11-28 00:00 :00 No [id number] 900mg Take 2 tablets by mouth at bedtime. [facility] lithium carbonate CR 450 mg SR tablet 2022-0 8-02 00:00: 00 11-28 00:00 :00 No [id number] 900mg Take 2 tablets by mouth at bedtime. [facility] busPIRone 10 mg tablet 2022-0 8-02 00:00: 00 10-04 00:00 :00 No [id number] 10mg Take 1 tablet by mouth in the morning and 1 tablet in the evening. [facility] busPIRone 10 mg tablet 2022-0 8-02 00:00: 00 10-04 00:00 :00 No [id number] 10mg Take 1 tablet by mouth in the morning and 1 tablet in the evening. [facility] busPIRone 10 mg tablet 3-0 8-02 00:00: 00 10-04 00:00 :00 No [id number] 10mg Take 1 tablet by mouth in the morning and 1 tablet in the evening. [facility] busPIRone 10 mg tablet 3-0 8-02 00:00: 00 10-04 00:00 :00 No [id number] 10mg Take 1 tablet by mouth in the morning and 1 tablet in the evening. [facility] busPIRone 10 mg tablet 3-0 8-02 00:00: 00 10-04 00:00 :00 No [id number] 10mg Take 1 tablet by mouth in the morning and 1 tablet in the evening. [facility] clonazePAM 1 mg tablet 3-0 7-19 00:00: 00 Yes [id number] Take 1 tablet by mouth twice daily as needed for anxiety. [facility] clonazePAM 1 mg tablet 3-0 7-19 00:00: 00 Yes [id number] Take 1 tablet by mouth twice daily as needed for anxiety. [facility] clonazePAM 1 mg tablet 3-0 7-19 00:00: 00 Yes [id number] Take 1 tablet by mouth twice daily as needed for anxiety. [facility] clonazePAM 1 mg tablet 3-0 7-19 00:00: 00 Yes [id number] Take 1 tablet by mouth twice daily as needed for anxiety. [facility] clonazePAM 1 mg tablet 3-0 7-19 00:00: 00 Yes [id number] Take 1 tablet by mouth twice daily as needed for anxiety. [facility] clonazePAM 1 mg tablet 3-0 7-19 00:00: 00 Yes [id number] Take 1 tablet by mouth twice daily as needed for anxiety. [facility] clonazePAM 1 mg tablet 3-0 7-19 00:00: 00 09-25 00:00 :00 No [id number] Take 1 tablet by mouth twice daily as needed for anxiety. [facility] clonazePAM 1 mg tablet 3-0 7-19 00:00: 00 09-25 00:00 :00 No [id number] Take 1 tablet by mouth twice daily as needed for anxiety. [facility] clonazePAM 1 mg tablet 0 19 00:00: 00 09-25 00:00 :00 No [id number] Take 1 tablet by mouth twice daily as needed for anxiety. [facility] clonazePAM 1 mg tablet 0 19 00:00: 00 09-25 00:00 :00 No [id number] Take 1 tablet by mouth twice daily as needed for anxiety. [facility] clonazePAM 1 mg tablet 0 08-30 00:00: 00 09-25 00:00 :00 No [id number] Take 1 tablet by mouth twice daily as needed for anxiety. [facility] clonazePAM 1 mg tablet 0 08-30 00:00: 00 09-25 00:00 :00 No [id number] Take 1 tablet by mouth twice daily as needed for anxiety. [facility] FUROSEMIDE ORAL 07-26 09:33: 07-26 00:00 :00 No 40mg Take 40 mg by mouth daily. [facility] FUROSEMIDE ORAL 07-26 09:33: 07-26 00:00 :00 No 40mg Take 40 mg by mouth daily. [facility] FUROSEMIDE ORAL 07-26 09:33: 07-26 00:00 :00 No 40mg Take 40 mg by mouth daily. [facility] FUROSEMIDE ORAL 0 07-26 09:33: 07-26 00:00 :00 No 40mg Take 40 mg by mouth daily. [facility] FUROSEMIDE ORAL 07-26 09:33: 07-26 00:00 :00 No 40mg Take 40 mg by mouth daily. [facility] FUROSEMIDE ORAL 07-26 09:33: 07-26 00:00 :00 No 40mg Take 40 mg by mouth daily. [facility] DULoxetine 60 mg capsule 07-26 00:00: 00 Yes [id number] 60mg Take 1 capsule by mouth in the morning and 1 capsule in the evening. [facility] lamoTRIgine 100 mg tablet 0 14 00:00: 00 Yes [id number] 100mg Take 1 tablet by mouth in the morning and 1 tablet in the evening. [facility] lithium carbonate CR 450 mg SR tablet 0 14 00:00: 00 Yes [id number] 900mg Take 2 tablets by mouth at bedtime. [facility] traZODone 50 mg tablet 2022-0 14 00:00: 00 Yes [id number] 50mg Take 1 tablet by mouth at bedtime. May cut tablet in half. [facility] busPIRone 10 mg tablet 2022-0 14 00:00: 00 Yes [id number] 10mg Take 1 tablet by mouth in the morning and 1 tablet in the evening. [facility] DULoxetine 60 mg capsule 2022-0 14 00:00: 00 Yes [id number] 60mg Take 1 capsule by mouth in the morning and 1 capsule in the evening. [facility] lamoTRIgine 100 mg tablet 2022-0 14 00:00: 00 Yes [id number] 100mg Take 1 tablet by mouth in the morning and 1 tablet in the evening. [facility] lithium carbonate CR 450 mg SR tablet 0 07-26 00:00: 00 Yes [id number] 900mg Take 2 tablets by mouth at bedtime. [facility] traZODone 50 mg tablet 2022-0 14 00:00: 00 Yes [id number] 50mg Take 1 tablet by mouth at bedtime. May cut tablet in half. [facility] busPIRone 10 mg tablet 2022-0 14 00:00: 00 Yes [id number] 10mg Take 1 tablet by mouth in the morning and 1 tablet in the evening. [facility] DULoxetine 60 mg capsule 2022-0 14 00:00: 00 Yes [id number] 60mg Take 1 capsule by mouth in the morning and 1 capsule in the evening. [facility] lamoTRIgine 100 mg tablet 2022-0 14 00:00: 00 Yes [id number] 100mg Take 1 tablet by mouth in the morning and 1 tablet in the evening. [facility] lithium carbonate CR 450 mg SR tablet 2022-0 14 00:00: 00 Yes [id number] 900mg Take 2 tablets by mouth at bedtime. [facility] traZODone 50 mg tablet 2022-0 14 00:00: 00 Yes [id number] 50mg Take 1 tablet by mouth at bedtime. May cut tablet in half. [facility] busPIRone 10 mg tablet 2022-0 14 00:00: 00 Yes [id number] 10mg Take 1 tablet by mouth in the morning and 1 tablet in the evening. [facility] DULoxetine 60 mg capsule 0 14 00:00: 00 Yes [id number] 60mg Take 1 capsule by mouth in the morning and 1 capsule in the evening. [facility] lamoTRIgine 100 mg tablet 2022-0 07-26 00:00: 00 Yes [id number] 100mg Take 1 tablet by mouth in the morning and 1 tablet in the evening. [facility] lithium carbonate CR 450 mg SR tablet 0 07-26 00:00: 00 Yes [id number] 900mg Take 2 tablets by mouth at bedtime. [facility] traZODone 50 mg tablet 2022-0 07-26 00:00: 00 Yes [id number] 50mg Take 1 tablet by mouth at bedtime. May cut tablet in half. [facility] busPIRone 10 mg tablet 2022-0 14 00:00: 00 Yes [id number] 10mg Take 1 tablet by mouth in the morning and 1 tablet in the evening. [facility] DULoxetine 60 mg capsule 2022-0 14 00:00: 00 Yes [id number] 60mg Take 1 capsule by mouth in the morning and 1 capsule in the evening. [facility] lamoTRIgine 100 mg tablet 2022-0 14 00:00: 00 Yes [id number] 100mg Take 1 tablet by mouth in the morning and 1 tablet in the evening. [facility] lithium carbonate CR 450 mg SR tablet 2022-0 14 00:00: 00 Yes [id number] 900mg Take 2 tablets by mouth at bedtime. [facility] traZODone 50 mg tablet 2022-0 14 00:00: 00 Yes [id number] 50mg Take 1 tablet by mouth at bedtime. May cut tablet in half. [facility] busPIRone 10 mg tablet 2022-0 14 00:00: 00 Yes [id number] 10mg Take 1 tablet by mouth in the morning and 1 tablet in the evening. [facility] DULoxetine 60 mg capsule 2022-0 14 00:00: 00 Yes [id number] 60mg Take 1 capsule by mouth in the morning and 1 capsule in the evening. [facility] lamoTRIgine 100 mg tablet 2022-0 14 00:00: 00 Yes [id number] 100mg Take 1 tablet by mouth in the morning and 1 tablet in the evening. [facility] lithium carbonate CR 450 mg SR tablet 0 07-26 00:00: 00 Yes [id number] 900mg Take 2 tablets by mouth at bedtime. [facility] traZODone 50 mg tablet 2022-0 14 00:00: 00 Yes [id number] 50mg Take 1 tablet by mouth at bedtime. June cut tablet in half. [facility] busPIRone 10 mg tablet 2022-0 14 00:00: 00 Yes [id number] 10mg Take 1 tablet by mouth in the morning and 1 tablet in the evening. [facility] DULoxetine 60 mg capsule 2022-0 14 00:00: 00 Yes [id number] 60mg Take 1 capsule by mouth in the morning and 1 capsule in the evening. [facility] lamoTRIgine 100 mg tablet 2022-0 14 00:00: 00 Yes [id number] 100mg Take 1 tablet by mouth in the morning and 1 tablet in the evening. [facility] lithium carbonate CR 450 mg SR tablet 2022-0 14 00:00: 00 Yes [id number] 900mg Take 2 tablets by mouth at bedtime. [facility] traZODone 50 mg tablet 2022-0 14 00:00: 00 Yes [id number] 50mg Take 1 tablet by mouth at bedtime. May cut tablet in half. [facility] busPIRone 10 mg tablet 2022-0 14 00:00: 00 Yes [id number] 10mg Take 1 tablet by mouth in the morning and 1 tablet in the evening. [facility] DULoxetine 60 mg capsule 2022-0 -14 00:00: 00 Yes [id number] 60mg Take 1 capsule by mouth in the morning and 1 capsule in the evening. [facility] lamoTRIgine 100 mg tablet 2022-0 -14 00:00: 00 Yes [id number] 100mg Take 1 tablet by mouth in the morning and 1 tablet in the evening. [facility] lithium carbonate CR 450 mg SR tablet 2022-0 -14 00:00: 00 Yes [id number] 900mg Take 2 tablets by mouth at bedtime. [facility] traZODone 50 mg tablet 2022-0 14 00:00: 00 Yes [id number] 50mg Take 1 tablet by mouth at bedtime. May cut tablet in half. [facility] busPIRone 10 mg tablet 2022-0 14 00:00: 00 Yes [id number] 10mg Take 1 tablet by mouth in the morning and 1 tablet in the evening. [facility] DULoxetine 60 mg capsule 2022-0 14 00:00: 00 Yes [id number] 60mg Take 1 capsule by mouth in the morning and 1 capsule in the evening. [facility] lamoTRIgine 100 mg tablet 2022-0 14 00:00: 00 Yes [id number] 100mg Take 1 tablet by mouth in the morning and 1 tablet in the evening. [facility] lithium carbonate CR 450 mg SR tablet 2022-0 14 00:00: 00 Yes [id number] 900mg Take 2 tablets by mouth at bedtime. [facility] traZODone 50 mg tablet 3-0 -14 00:00: 00 Yes [id number] 50mg Take 1 tablet by mouth at bedtime. May cut tablet in half. [facility] busPIRone 10 mg tablet 0 6-14 00:00: 00 Yes [id number] 10mg Take 1 tablet by mouth in the morning and 1 tablet in the evening. [facility] DULoxetine 60 mg capsule 2022-0 14 00:00: 00 Yes [id number] 60mg Take 1 capsule by mouth in the morning and 1 capsule in the evening. [facility] traZODone 50 mg tablet 2022-0 14 00:00: 00 Yes [id number] 50mg Take 1 tablet by mouth at bedtime. May cut tablet in half. [facility] traZODone 50 mg tablet 2022-0 14 00:00: 00 Yes [id number] 50mg Take 1 tablet by mouth at bedtime. May cut tablet in half. [facility] traZODone 50 mg tablet 2022-0 14 00:00: 00 Yes [id number] 50mg Take 1 tablet by mouth at bedtime. May cut tablet in half. [facility] traZODone 50 mg tablet 0 14 00:00: 00 Yes [id number] 50mg Take 1 tablet by mouth at bedtime. May cut tablet in half. [facility] traZODone 50 mg tablet 2022-0 14 00:00: 00 Yes [id number] 50mg Take 1 tablet by mouth at bedtime. May cut tablet in half. [facility] traZODone 50 mg tablet 2022-0 14 00:00: 00 Yes [id number] 50mg Take 1 tablet by mouth at bedtime. May cut tablet in half. [facility] traZODone 50 mg tablet 2022-0 14 00:00: 00 Yes [id number] 50mg Take 1 tablet by mouth at bedtime. May cut tablet in half. [facility] traZODone 50 mg tablet 2022-0 -14 00:00: 00 Yes [id number] 50mg Take 1 tablet by mouth at bedtime. May cut tablet in half. [facility] traZODone 50 mg tablet 2022-0 -14 00:00: 00 Yes [id number] 50mg Take 1 tablet by mouth at bedtime. May cut tablet in half. [facility] traZODone 50 mg tablet 3-0 6-14 00:00: 00 Yes [id number] 50mg Take 1 tablet by mouth at bedtime. May cut tablet in half. [facility] traZODone 50 mg tablet 3-0 6-14 00:00: 00 Yes [id number] 50mg Take 1 tablet by mouth at bedtime. May cut tablet in half. [facility] traZODone 50 mg tablet 3-0 6-14 00:00: 00 Yes [id number] 50mg Take 1 tablet by mouth at bedtime. May cut tablet in half. [facility] traZODone 50 mg tablet 3-0 6-14 00:00: 00 Yes [id number] 50mg Take 1 tablet by mouth at bedtime. May cut tablet in half. [facility] traZODone 50 mg tablet 3-0 6-14 00:00: 00 Yes [id number] 50mg Take 1 tablet by mouth at bedtime. May cut tablet in half. [facility] traZODone 50 mg tablet 3-0 6-14 00:00: 00 Yes [id number] 50mg Take 1 tablet by mouth at bedtime. May cut tablet in half. [facility] traZODone 50 mg tablet 3-0 6-14 00:00: 00 Yes [id number] 50mg Take 1 tablet by mouth at bedtime. May cut tablet in half. [facility] traZODone 50 mg tablet 3-0 6-14 00:00: 00 Yes [id number] 50mg Take 1 tablet by mouth at bedtime. May cut tablet in half. [facility] traZODone 50 mg tablet 3-0 6-14 00:00: 00 Yes [id number] 50mg Take 1 tablet by mouth at bedtime. May cut tablet in half. [facility] traZODone 50 mg tablet 3-0 6-14 00:00: 00 Yes [id number] 50mg Take 1 tablet by mouth at bedtime. May cut tablet in half. [facility] traZODone 50 mg tablet 3-0 6-14 00:00: 00 Yes [id number] 50mg Take 1 tablet by mouth at bedtime. May cut tablet in half. [facility] traZODone 50 mg tablet 2022-0 6-14 00:00: 00 Yes [id number] 50mg Take 1 tablet by mouth at bedtime. May cut tablet in half. [facility] traZODone 50 mg tablet 3-0 6-14 00:00: 00 Yes [id number] 50mg Take 1 tablet by mouth at bedtime. May cut tablet in half. [facility] traZODone 50 mg tablet 3-0 6-14 00:00: 00 Yes [id number] 50mg Take 1 tablet by mouth at bedtime. May cut tablet in half. [facility] traZODone 50 mg tablet 3-0 6-14 00:00: 00 Yes [id number] 50mg Take 1 tablet by mouth at bedtime. May cut tablet in half. [facility] traZODone 50 mg tablet 2022-0 -14 00:00: 00 Yes [id number] 50mg Take 1 tablet by mouth at bedtime. May cut tablet in half. [facility] traZODone 50 mg tablet 2022-0 6-14 00:00: 00 Yes [id number] 50mg Take 1 tablet by mouth at bedtime. May cut tablet in half. [facility] traZODone 50 mg tablet 3-0 -14 00:00: 00 Yes [id number] 50mg Take 1 tablet by mouth at bedtime. May cut tablet in half. [facility] traZODone 50 mg tablet 3-0 6-14 00:00: 00 Yes [id number] 50mg Take 1 tablet by mouth at bedtime. May cut tablet in half. [facility] traZODone 50 mg tablet 3-0 6-14 00:00: 00 Yes [id number] 50mg Take 1 tablet by mouth at bedtime. May cut tablet in half. [facility] traZODone 50 mg tablet 3-0 6-14 00:00: 00 Yes [id number] 50mg Take 1 tablet by mouth at bedtime. May cut tablet in half. [facility] traZODone 50 mg tablet 3-0 6-14 00:00: 00 Yes [id number] 50mg Take 1 tablet by mouth at bedtime. May cut tablet in half. [facility] traZODone 50 mg tablet 2022-0 6-14 00:00: 00 Yes [id number] 50mg Take 1 tablet by mouth at bedtime. May cut tablet in half. [facility] traZODone 50 mg tablet 2022-0 6-14 00:00: 00 Yes [id number] 50mg Take 1 tablet by mouth at bedtime. May cut tablet in half. [facility] traZODone 50 mg tablet 2022-0 6-14 00:00: 00 Yes [id number] 50mg Take 1 tablet by mouth at bedtime. May cut tablet in half. [facility] traZODone 50 mg tablet 2022-0 6-14 00:00: 00 Yes [id number] 50mg Take 1 tablet by mouth at bedtime. May cut tablet in half. [facility] traZODone 50 mg tablet 2022-0 6-14 00:00: 00 Yes [id number] 50mg Take 1 tablet by mouth at bedtime. May cut tablet in half. [facility] traZODone 50 mg tablet 2022-0 6-14 00:00: 00 Yes [id number] 50mg Take 1 tablet by mouth at bedtime. May cut tablet in half. [facility] traZODone 50 mg tablet 2022-0 6-14 00:00: 00 11-28 00:00 :00 No [id number] 50mg Take 1 tablet by mouth at bedtime. May cut tablet in half. [facility] traZODone 50 mg tablet 3-0 6-14 00:00: 00 11-28 00:00 :00 No [id number] 50mg Take 1 tablet by mouth at bedtime. May cut tablet in half. [facility] traZODone 50 mg tablet 2022-0 6-14 00:00: 00 11-28 00:00 :00 No [id number] 50mg Take 1 tablet by mouth at bedtime. May cut tablet in half. [facility] traZODone 50 mg tablet 2022-0 14 00:00: 00 11-28 00:00 :00 No [id number] 50mg Take 1 tablet by mouth at bedtime. May cut tablet in half. [facility] traZODone 50 mg tablet 0 14 00:00: 00 11-28 00:00 :00 No [id number] 50mg Take 1 tablet by mouth at bedtime. May cut tablet in half. [facility] traZODone 50 mg tablet 0 14 00:00: 00 11-28 00:00 :00 No [id number] 50mg Take 1 tablet by mouth at bedtime. May cut tablet in half. [facility] traZODone 50 mg tablet 0 14 00:00: 00 11-28 00:00 :00 No [id number] 50mg Take 1 tablet by mouth at bedtime. May cut tablet in half. [facility] DULoxetine 60 mg capsule 2022-0 14 00:00: 00 09-25 00:00 :00 No [id number] 60mg Take 1 capsule by mouth in the morning and 1 capsule in the evening. [facility] DULoxetine 60 mg capsule 2022-0 14 00:00: 00 09-25 00:00 :00 No [id number] 60mg Take 1 capsule by mouth in the morning and 1 capsule in the evening. [facility] DULoxetine 60 mg capsule 2022-0 6-14 00:00: 00 09-25 00:00 :00 No [id number] 60mg Take 1 capsule by mouth in the morning and 1 capsule in the evening. [facility] DULoxetine 60 mg capsule 2022-0 6-14 00:00: 00 09-25 00:00 :00 No [id number] 60mg Take 1 capsule by mouth in the morning and 1 capsule in the evening. [facility] DULoxetine 60 mg capsule 2022-0 6-14 00:00: 00 09-25 00:00 :00 No [id number] 60mg Take 1 capsule by mouth in the morning and 1 capsule in the evening. [facility] DULoxetine 60 mg capsule 2022-0 -14 00:00: 00 09-25 00:00 :00 No [id number] 60mg Take 1 capsule by mouth in the morning and 1 capsule in the evening. [facility] DULoxetine 60 mg capsule 2022-0 14 00:00: 00 09-25 00:00 :00 No [id number] 60mg Take 1 capsule by mouth in the morning and 1 capsule in the evening. [facility] lamoTRIgine 100 mg tablet 0 07-26 00:00: 00 09-13 00:00 :00 No [id number] 100mg Take 1 tablet by mouth in the morning and 1 tablet in the evening. [facility] lithium carbonate CR 450 mg SR tablet 0 07-26 00:00: 00 09-13 00:00 :00 No [id number] 900mg Take 2 tablets by mouth at bedtime. [facility] busPIRone 10 mg tablet 2022-0 14 00:00: 00 09-13 00:00 :00 No [id number] 10mg Take 1 tablet by mouth in the morning and 1 tablet in the evening. [facility] lamoTRIgine 100 mg tablet 0 14 00:00: 00 09-13 00:00 :00 No [id number] 100mg Take 1 tablet by mouth in the morning and 1 tablet in the evening. [facility] lithium carbonate CR 450 mg SR tablet 2022-0 14 00:00: 00 09-13 00:00 :00 No [id number] 900mg Take 2 tablets by mouth at bedtime. [facility] busPIRone 10 mg tablet 2022-0 14 00:00: 00 09-13 00:00 :00 No [id number] 10mg Take 1 tablet by mouth in the morning and 1 tablet in the evening. [facility] lamoTRIgine 100 mg tablet 3-0 6-14 00:00: 00 09-13 00:00 :00 No [id number] 100mg Take 1 tablet by mouth in the morning and 1 tablet in the evening. [facility] lithium carbonate CR 450 mg SR tablet 2022-0 614 00:00: 00 09-13 00:00 :00 No [id number] 900mg Take 2 tablets by mouth at bedtime. [facility] busPIRone 10 mg tablet 2022-0 14 00:00: 00 09-13 00:00 :00 No [id number] 10mg Take 1 tablet by mouth in the morning and 1 tablet in the evening. [facility] lamoTRIgine 100 mg tablet 2022-0 14 00:00: 00 09-13 00:00 :00 No [id number] 100mg Take 1 tablet by mouth in the morning and 1 tablet in the evening. [facility] lithium carbonate CR 450 mg SR tablet 0 14 00:00: 00 09-13 00:00 :00 No [id number] 900mg Take 2 tablets by mouth at bedtime. [facility] busPIRone 10 mg tablet 2022-0 14 00:00: 00 09-13 00:00 :00 No [id number] 10mg Take 1 tablet by mouth in the morning and 1 tablet in the evening. [facility] lamoTRIgine 100 mg tablet 2022-0 14 00:00: 00 09-13 00:00 :00 No [id number] 100mg Take 1 tablet by mouth in the morning and 1 tablet in the evening. [facility] lithium carbonate CR 450 mg SR tablet 2022-0 6-14 00:00: 00 09-13 00:00 :00 No [id number] 900mg Take 2 tablets by mouth at bedtime. [facility] busPIRone 10 mg tablet 3-0 6-14 00:00: 00 09-13 00:00 :00 No [id number] 10mg Take 1 tablet by mouth in the morning and 1 tablet in the evening. [facility] lamoTRIgine 100 mg tablet 0 07-26 00:00: 00 09-13 00:00 :00 No [id number] 100mg Take 1 tablet by mouth in the morning and 1 tablet in the evening. [facility] lithium carbonate CR 450 mg SR tablet 07-26 00:00: 00 09-13 00:00 :00 No [id number] 900mg Take 2 tablets by mouth at bedtime. [facility] busPIRone 10 mg tablet 07-26 00:00: 00 09-13 00:00 :00 No [id number] 10mg Take 1 tablet by mouth in the morning and 1 tablet in the evening. [facility] lamoTRIgine 100 mg tablet 0 07-19 00:00: 00 Yes [id number] 100mg Take 1 tablet by mouth in the morning and 1 tablet in the evening. [facility] lamoTRIgine 100 mg tablet 2022-0 07-19 00:00: 00 Yes [id number] 100mg Take 1 tablet by mouth in the morning and 1 tablet in the evening. [facility] lamoTRIgine 100 mg tablet 2022-0 07-19 00:00: 00 07-26 00:00 :00 No [id number] 100mg Take 1 tablet by mouth in the morning and 1 tablet in the evening. [facility] lamoTRIgine 100 mg tablet 2022-0 07-19 00:00: 00 07-26 00:00 :00 No [id number] 100mg Take 1 tablet by mouth in the morning and 1 tablet in the evening. [facility] lamoTRIgine 100 mg tablet 2022-0 07-19 00:00: 00 07-26 00:00 :00 No [id number] 100mg Take 1 tablet by mouth in the morning and 1 tablet in the evening. [facility] lamoTRIgine 100 mg tablet 2022-0 07-19 00:00: 00 07-26 00:00 :00 No [id number] 100mg Take 1 tablet by mouth in the morning and 1 tablet in the evening. [facility] clonazePAM 1 mg tablet 2023-0 5-24 00:00: 00 Yes [id number] Take 1 tablet by mouth twice daily as needed for anxiety. [facility] mg tablet 2023-0 5-24 00:00: 00 Yes [id number] Take 1 tablet by mouth twice daily as needed for anxiety. [facility] clonazePAM 1 mg tablet 2023-0 5-24 00:00: 00 Yes [id number] Take 1 tablet by mouth twice daily as needed for anxiety. [facility] clonazePAM 1 mg tablet 3-0 5-24 00:00: 00 Yes [id number] Take 1 tablet by mouth twice daily as needed for anxiety. [facility] clonazePAM 1 mg tablet 3-0 5-24 00:00: 00 Yes [id number] Take 1 tablet by mouth twice daily as needed for anxiety. [facility] clonazePAM 1 mg tablet 3-0 5-24 00:00: 00 Yes [id number] Take 1 tablet by mouth twice daily as needed for anxiety. [facility] clonazePAM 1 mg tablet 3-0 5-24 00:00: 00 Yes [id number] Take 1 tablet by mouth twice daily as needed for anxiety. [facility] clonazePAM 1 mg tablet 3-0 5-24 00:00: 00 Yes [id number] Take 1 tablet by mouth twice daily as needed for anxiety. [facility] clonazePAM 1 mg tablet 3-0 5-24 00:00: 00 08-29 00:00 :00 No [id number] Take 1 tablet by mouth twice daily as needed for anxiety. [facility] clonazePAM 1 mg tablet 3-0 5-24 00:00: 00 18 00:00 :00 No [id number] Take 1 tablet by mouth twice daily as needed for anxiety. [facility] clonazePAM 1 mg tablet 2023-0 5-24 00:00: 00 08-29 00:00 :00 No [id number] Take 1 tablet by mouth twice daily as needed for anxiety. [facility] clonazePAM 1 mg tablet 2023-0 5-24 00:00: 00 08-29 00:00 :00 No [id number] Take 1 tablet by mouth twice daily as needed for anxiety. [facility] clonazePAM 1 mg tablet 2022-0 24 00:00: 00 08-29 00:00 :00 No [id number] Take 1 tablet by mouth twice daily as needed for anxiety. [facility] clonazePAM 1 mg tablet 2022-0 24 00:00: 00 08-29 00:00 :00 No [id number] Take 1 tablet by mouth twice daily as needed for anxiety. [facility] clonazePAM 1 mg tablet 2022-0 24 00:00: 00 08-29 00:00 :00 No [id number] Take 1 tablet by mouth twice daily as needed for anxiety. [facility] DULoxetine 60 mg capsule 2022-0 06-20 00:00: 00 Yes [id number] 60mg Take 1 capsule by mouth in the morning and 1 capsule in the evening. [facility] lithium carbonate CR 450 mg SR tablet 2022-0 06-20 00:00: 00 Yes [id number] 900mg Take 2 tablets by mouth at bedtime. [facility] DULoxetine 60 mg capsule 2022-0 06-20 00:00: 00 Yes [id number] 60mg Take 1 capsule by mouth in the morning and 1 capsule in the evening. [facility] lithium carbonate CR 450 mg SR tablet 2022-0 06-20 00:00: 00 Yes [id number] 900mg Take 2 tablets by mouth at bedtime. [facility] DULoxetine 60 mg capsule 2022-0 06-20 00:00: 00 Yes [id number] 60mg Take 1 capsule by mouth in the morning and 1 capsule in the evening. [facility] lithium carbonate CR 450 mg SR tablet 2022-0 06-20 00:00: 00 Yes [id number] 900mg Take 2 tablets by mouth at bedtime. [facility] DULoxetine 60 mg capsule 2022-0 06-20 00:00: 00 Yes [id number] 60mg Take 1 capsule by mouth in the morning and 1 capsule in the evening. [facility] lithium carbonate CR 450 mg SR tablet 2022-0 06-20 00:00: 00 Yes [id number] 900mg Take 2 tablets by mouth at bedtime. [facility] DULoxetine 60 mg capsule 2022-0 06-20 00:00: 00 Yes [id number] 60mg Take 1 capsule by mouth in the morning and 1 capsule in the evening. [facility] lithium carbonate CR 450 mg SR tablet 2022-0 06-20 00:00: 00 Yes [id number] 900mg Take 2 tablets by mouth at bedtime. [facility] DULoxetine 60 mg capsule 2022-0 06-20 00:00: 00 07-26 00:00 :00 No [id number] 60mg Take 1 capsule by mouth in the morning and 1 capsule in the evening. [facility] lithium carbonate CR 450 mg SR tablet 06-20 00:00: 00 07-26 00:00 :00 No [id number] 900mg Take 2 tablets by mouth at bedtime. [facility] DULoxetine 60 mg capsule 06-20 00:00: 00 07-26 00:00 :00 No [id number] 60mg Take 1 capsule by mouth in the morning and 1 capsule in the evening. [facility] lithium carbonate CR 450 mg SR tablet 06-20 00:00: 00 07-26 00:00 :00 No [id number] 900mg Take 2 tablets by mouth at bedtime. [facility] DULoxetine 60 mg capsule 0 06-20 00:00: 00 07-26 00:00 :00 No [id number] 60mg Take 1 capsule by mouth in the morning and 1 capsule in the evening. [facility] lithium carbonate CR 450 mg SR tablet 2022-0 06-20 00:00: 00 07-26 00:00 :00 No [id number] 900mg Take 2 tablets by mouth at bedtime. [facility] DULoxetine 60 mg capsule 2022-0 06-20 00:00: 00 07-26 00:00 :00 No [id number] 60mg Take 1 capsule by mouth in the morning and 1 capsule in the evening. [facility] lithium carbonate CR 450 mg SR tablet 2022-0 06-20 00:00: 00 07-26 00:00 :00 No [id number] 900mg Take 2 tablets by mouth at bedtime. [facility] DULoxetine 60 mg capsule 04-20 00:00: 00 Yes [id number] 60mg Take 1 capsule by mouth in the morning and 1 capsule in the evening. [facility] clonazePAM 1 mg tablet 04-20 00:00: 00 Yes [id number] Take 1 tablet by mouth twice daily as needed for anxiety. [facility] lamoTRIgine 100 mg tablet 04-20 00:00: 00 Yes [id number] 100mg Take 1 tablet by mouth in the morning and 1 tablet in the evening. [facility] traZODone 50 mg tablet 04-20 00:00: 00 Yes [id number] 50mg Take 1 tablet by mouth at bedtime. May cut tablet in half. [facility] lithium carbonate CR 450 mg SR tablet 04-20 00:00: 00 Yes [id number] 900mg Take 2 tablets by mouth at bedtime. [facility] DULoxetine 60 mg capsule 04-20 00:00: 00 Yes [id number] 60mg Take 1 capsule by mouth in the morning and 1 capsule in the evening. [facility] clonazePAM 1 mg tablet 04-20 00:00: 00 Yes [id number] Take 1 tablet by mouth twice daily as needed for anxiety. [facility] lamoTRIgine 100 mg tablet 04-20 00:00: 00 Yes [id number] 100mg Take 1 tablet by mouth in the morning and 1 tablet in the evening. [facility] traZODone 50 mg tablet 04-20 00:00: 00 Yes [id number] 50mg Take 1 tablet by mouth at bedtime. May cut tablet in half. [facility] lithium carbonate CR 450 mg SR tablet 04-20 00:00: 00 Yes [id number] 900mg Take 2 tablets by mouth at bedtime. [facility] clonazePAM 1 mg tablet 04-20 00:00: 00 Yes [id number] Take 1 tablet by mouth twice daily as needed for anxiety. [facility] lamoTRIgine 100 mg tablet 2022-0 3 00:00: 00 Yes [id number] 100mg Take 1 tablet by mouth in the morning and 1 tablet in the evening. [facility] traZODone 50 mg tablet 2022-0 3 00:00: 00 Yes [id number] 50mg Take 1 tablet by mouth at bedtime. May cut tablet in half. [facility] clonazePAM 1 mg tablet 2022-0 04-20 00:00: 00 Yes [id number] Take 1 tablet by mouth twice daily as needed for anxiety. [facility] lamoTRIgine 100 mg tablet 2022-0 04-20 00:00: 00 Yes [id number] 100mg Take 1 tablet by mouth in the morning and 1 tablet in the evening. [facility] traZODone 50 mg tablet 2022-0 04-20 00:00: 00 Yes [id number] 50mg Take 1 tablet by mouth at bedtime. May cut tablet in half. [facility] lamoTRIgine 100 mg tablet 2022-0 04-20 00:00: 00 Yes [id number] 100mg Take 1 tablet by mouth in the morning and 1 tablet in the evening. [facility] traZODone 50 mg tablet 2022-0 04-20 00:00: 00 Yes [id number] 50mg Take 1 tablet by mouth at bedtime. May cut tablet in half. [facility] traZODone 50 mg tablet 2022-0 3 00:00: 00 Yes [id number] 50mg Take 1 tablet by mouth at bedtime. May cut tablet in half. [facility] traZODone 50 mg tablet 2022-0 04-20 00:00: 00 Yes [id number] 50mg Take 1 tablet by mouth at bedtime. May cut tablet in half. [facility] traZODone 50 mg tablet 2022-0 04-20 00:00: 00 07-26 00:00 :00 No [id number] 50mg Take 1 tablet by mouth at bedtime. May cut tablet in half. [facility] traZODone 50 mg tablet 2022-0 04-20 00:00: 00 07-26 00:00 :00 No [id number] 50mg Take 1 tablet by mouth at bedtime. May cut tablet in half. [facility] traZODone 50 mg tablet 2022-0 04-20 00:00: 00 07-26 00:00 :00 No [id number] 50mg Take 1 tablet by mouth at bedtime. May cut tablet in half. [facility] traZODone 50 mg tablet 2022-0 04-20 00:00: 00 07-26 00:00 :00 No [id number] 50mg Take 1 tablet by mouth at bedtime. May cut tablet in half. [facility] lamoTRIgine 100 mg tablet 2022-0 04-20 00:00: 00 07-19 00:00 :00 No [id number] 100mg Take 1 tablet by mouth in the morning and 1 tablet in the evening. [facility] lamoTRIgine 100 mg tablet 2022-04-20 00:00: 00 07-19 00:00 :00 No [id number] 100mg Take 1 tablet by mouth in the morning and 1 tablet in the evening. [facility] lamoTRIgine 100 mg tablet 2022-04-20 00:00: 00 07-19 00:00 :00 No [id number] 100mg Take 1 tablet by mouth in the morning and 1 tablet in the evening. [facility] lamoTRIgine 100 mg tablet 2022-0 04-20 00:00: 00 07-19 00:00 :00 No [id number] 100mg Take 1 tablet by mouth in the morning and 1 tablet in the evening. [facility] clonazePAM 1 mg tablet 2022-0 04-20 00:00: 00 07-05 00:00 :00 No [id number] Take 1 tablet by mouth twice daily as needed for anxiety. [facility] clonazePAM 1 mg tablet 2022-0 04-20 00:00: 00 07-05 00:00 :00 No [id number] Take 1 tablet by mouth twice daily as needed for anxiety. [facility] clonazePAM 1 mg tablet 2022-0 3 00:00: 00 07-05 00:00 :00 No [id number] Take 1 tablet by mouth twice daily as needed for anxiety. [facility] clonazePAM 1 mg tablet 2022- 3 00:00: 00 07-05 00:00 :00 No [id number] Take 1 tablet by mouth twice daily as needed for anxiety. [facility] clonazePAM 1 mg tablet 04-20 00:00: 00 07-05 00:00 :00 No [id number] Take 1 tablet by mouth twice daily as needed for anxiety. [facility] DULoxetine 60 mg capsule 04-20 00:00: 00 06-17 00:00 :00 No [id number] 60mg Take 1 capsule by mouth in the morning and 1 capsule in the evening. [facility] lithium carbonate CR 450 mg SR tablet 04-20 00:00: 00 06-17 00:00 :00 No [id number] 900mg Take 2 tablets by mouth at bedtime. [facility] DULoxetine 60 mg capsule 04-20 00:00: 00 06-17 00:00 :00 No [id number] 60mg Take 1 capsule by mouth in the morning and 1 capsule in the evening. [facility] lithium carbonate CR 450 mg SR tablet 3 00:00: 00 06-17 00:00 :00 No [id number] 900mg Take 2 tablets by mouth at bedtime. [facility] DULoxetine 60 mg capsule 3 00:00: 00 06-17 00:00 :00 No [id number] 60mg Take 1 capsule by mouth in the morning and 1 capsule in the evening. [facility] lithium carbonate CR 450 mg SR tablet 3 00:00: 00 06-17 00:00 :00 No [id number] 900mg Take 2 tablets by mouth at bedtime. [facility] lamoTRIgine 100 mg tablet 03-09 00:00: 00 Yes [id number] 100mg Take 1 tablet by mouth in the morning and 1 tablet in the evening. [facility] lamoTRIgine 100 mg tablet 03-09 00:00: 00 Yes [id number] 100mg Take 1 tablet by mouth in the morning and 1 tablet in the evening. [facility] lamoTRIgine 100 mg tablet 03-09 00:00: 00 Yes [id number] 100mg Take 1 tablet by mouth in the morning and 1 tablet in the evening. [facility] lamoTRIgine 100 mg tablet 03-09 00:00: 00 Yes [id number] 100mg Take 1 tablet by mouth in the morning and 1 tablet in the evening. [facility] lamoTRIgine 100 mg tablet 03-09 00:00: 00 04-20 00:00 :00 No [id number] 100mg Take 1 tablet by mouth in the morning and 1 tablet in the evening. [facility] lamoTRIgine 100 mg tablet 03-09 00:00: 00 04-20 00:00 :00 No [id number] 100mg Take 1 tablet by mouth in the morning and 1 tablet in the evening. [facility] DULoxetine 60 mg capsule 02-15 00:00: 00 Yes [id number] 60mg Take 1 capsule by mouth in the morning and 1 capsule in the evening. [facility] lamoTRIgine 100 mg tablet 02-15 00:00: 00 Yes [id number] 100mg Take 1 tablet by mouth in the morning and 1 tablet in the evening. [facility] traZODone 50 mg tablet 02-15 00:00: 00 Yes [id number] 50mg Take 1 tablet by mouth at bedtime. May cut tablet in half. [facility] clonazePAM 1 mg tablet 02-15 00:00: 00 Yes [id number] Take 1 tablet by mouth twice daily as needed for anxiety. [facility] lithium 600 mg capsule 02-15 00:00: 00 Yes [id number] 600mg Take 1 capsule by mouth in the morning and 1 capsule in the evening. [facility] DULoxetine 60 mg capsule 2022-0 02-15 00:00: 00 Yes [id number] 60mg Take 1 capsule by mouth in the morning and 1 capsule in the evening. [facility] lamoTRIgine 100 mg tablet 2022-0 02-15 00:00: 00 Yes [id number] 100mg Take 1 tablet by mouth in the morning and 1 tablet in the evening. [facility] traZODone 50 mg tablet 2022-0 02-15 00:00: 00 Yes [id number] 50mg Take 1 tablet by mouth at bedtime. May cut tablet in half. [facility] clonazePAM 1 mg tablet 2022-0 02-15 00:00: 00 Yes [id number] Take 1 tablet by mouth twice daily as needed for anxiety. [facility] lithium carbonate CR 450 mg SR tablet 2022-0 02-15 00:00: 00 Yes [id number] 900mg Take 2 tablets by mouth at bedtime. [facility] DULoxetine 60 mg capsule 2022-0 02-15 00:00: 00 Yes [id number] 60mg Take 1 capsule by mouth in the morning and 1 capsule in the evening. [facility] lamoTRIgine 100 mg tablet 2022-0 02-15 00:00: 00 Yes [id number] 100mg Take 1 tablet by mouth in the morning and 1 tablet in the evening. [facility] traZODone 50 mg tablet 2022-0 02-15 00:00: 00 Yes [id number] 50mg Take 1 tablet by mouth at bedtime. May cut tablet in half. [facility] clonazePAM 1 mg tablet 2022-0 02-15 00:00: 00 Yes [id number] Take 1 tablet by mouth twice daily as needed for anxiety. [facility] lithium carbonate CR 450 mg SR tablet 2022-0 02-15 00:00: 00 Yes [id number] 900mg Take 2 tablets by mouth at bedtime. [facility] DULoxetine 60 mg capsule 2022-0 02-15 00:00: 00 Yes [id number] 60mg Take 1 capsule by mouth in the morning and 1 capsule in the evening. [facility] lamoTRIgine 100 mg tablet 0 02-15 00:00: 00 Yes [id number] 100mg Take 1 tablet by mouth in the morning and 1 tablet in the evening. [facility] traZODone 50 mg tablet 0 02-15 00:00: 00 Yes [id number] 50mg Take 1 tablet by mouth at bedtime. May cut tablet in half. [facility] clonazePAM 1 mg tablet 0 02-15 00:00: 00 Yes [id number] Take 1 tablet by mouth twice daily as needed for anxiety. [facility] lithium carbonate CR 450 mg SR tablet 0 02-15 00:00: 00 Yes [id number] 900mg Take 2 tablets by mouth at bedtime. [facility] DULoxetine 60 mg capsule 0 02-15 00:00: 00 Yes [id number] 60mg Take 1 capsule by mouth in the morning and 1 capsule in the evening. [facility] lamoTRIgine 100 mg tablet 0 02-15 00:00: 00 Yes [id number] 100mg Take 1 tablet by mouth in the morning and 1 tablet in the evening. [facility] traZODone 50 mg tablet 0 02-15 00:00: 00 Yes [id number] 50mg Take 1 tablet by mouth at bedtime. May cut tablet in half. [facility] clonazePAM 1 mg tablet 0 02-15 00:00: 00 Yes [id number] Take 1 tablet by mouth twice daily as needed for anxiety. [facility] lithium carbonate CR 450 mg SR tablet 0 02-15 00:00: 00 Yes [id number] 900mg Take 2 tablets by mouth at bedtime. [facility] DULoxetine 60 mg capsule 2022-0 02-15 00:00: 00 Yes [id number] 60mg Take 1 capsule by mouth in the morning and 1 capsule in the evening. [facility] lamoTRIgine 100 mg tablet 2022-0 02-15 00:00: 00 Yes [id number] 100mg Take 1 tablet by mouth in the morning and 1 tablet in the evening. [facility] traZODone 50 mg tablet 02-15 00:00: 00 Yes [id number] 50mg Take 1 tablet by mouth at bedtime. May cut tablet in half. [facility] clonazePAM 1 mg tablet 0 02-15 00:00: 00 Yes [id number] Take 1 tablet by mouth twice daily as needed for anxiety. [facility] lithium carbonate CR 450 mg SR tablet 0 02-15 00:00: 00 Yes [id number] 900mg Take 2 tablets by mouth at bedtime. [facility] DULoxetine 60 mg capsule 0 02-15 00:00: 00 Yes [id number] 60mg Take 1 capsule by mouth in the morning and 1 capsule in the evening. [facility] traZODone 50 mg tablet 02-15 00:00: 00 Yes [id number] 50mg Take 1 tablet by mouth at bedtime. May cut tablet in half. [facility] clonazePAM 1 mg tablet 02-15 00:00: 00 Yes [id number] Take 1 tablet by mouth twice daily as needed for anxiety. [facility] lithium carbonate CR 450 mg SR tablet 02-15 00:00: 00 Yes [id number] 900mg Take 2 tablets by mouth at bedtime. [facility] DULoxetine 60 mg capsule 0 02-15 00:00: 00 Yes [id number] 60mg Take 1 capsule by mouth in the morning and 1 capsule in the evening. [facility] traZODone 50 mg tablet 0 02-15 00:00: 00 Yes [id number] 50mg Take 1 tablet by mouth at bedtime. May cut tablet in half. [facility] clonazePAM 1 mg tablet 0 02-15 00:00: 00 Yes [id number] Take 1 tablet by mouth twice daily as needed for anxiety. [facility] lithium carbonate CR 450 mg SR tablet 0 02-15 00:00: 00 Yes [id number] 900mg Take 2 tablets by mouth at bedtime. [facility] DULoxetine 60 mg capsule 2022-0 02-15 00:00: 00 Yes [id number] 60mg Take 1 capsule by mouth in the morning and 1 capsule in the evening. [facility] traZODone 50 mg tablet 02-15 00:00: 00 Yes [id number] 50mg Take 1 tablet by mouth at bedtime. May cut tablet in half. [facility] clonazePAM 1 mg tablet 02-15 00:00: 00 Yes [id number] Take 1 tablet by mouth twice daily as needed for anxiety. [facility] lithium carbonate CR 450 mg SR tablet 02-15 00:00: 00 Yes [id number] 900mg Take 2 tablets by mouth at bedtime. [facility] DULoxetine 60 mg capsule 02-15 00:00: 00 Yes [id number] 60mg Take 1 capsule by mouth in the morning and 1 capsule in the evening. [facility] traZODone 50 mg tablet 02-15 00:00: 00 Yes [id number] 50mg Take 1 tablet by mouth at bedtime. May cut tablet in half. [facility] clonazePAM 1 mg tablet 02-15 00:00: 00 Yes [id number] Take 1 tablet by mouth twice daily as needed for anxiety. [facility] lithium carbonate CR 450 mg SR tablet 02-15 00:00: 00 Yes [id number] 900mg Take 2 tablets by mouth at bedtime. [facility] traZODone 50 mg tablet 02-15 00:00: 00 04-20 00:00 :00 No [id number] 50mg Take 1 tablet by mouth at bedtime. May cut tablet in half. [facility] lithium carbonate CR 450 mg SR tablet 02-15 00:00: 00 04-20 00:00 :00 No [id number] 900mg Take 2 tablets by mouth at bedtime. [facility] traZODone 50 mg tablet 02-15 00:00: 00 04-20 00:00 :00 No [id number] 50mg Take 1 tablet by mouth at bedtime. May cut tablet in half. [facility] lithium carbonate CR 450 mg SR tablet 02-15 00:00: 00 04-20 00:00 :00 No [id number] 900mg Take 2 tablets by mouth at bedtime. [facility] DULoxetine 60 mg capsule 2022-0 1-04 00:00: 00 04-19 00:00 :00 No [id number] 60mg Take 1 capsule by mouth in the morning and 1 capsule in the evening. [facility] clonazePAM 1 mg tablet 2022-0 1-04 00:00: 00 04-19 00:00 :00 No [id number] Take 1 tablet by mouth twice daily as needed for anxiety. [facility] DULoxetine 60 mg capsule 0 -04 00:00: 00 04-19 00:00 :00 No [id number] 60mg Take 1 capsule by mouth in the morning and 1 capsule in the evening. [facility] clonazePAM 1 mg tablet 2022-0 - 00:00: 00 04-19 00:00 :00 No [id number] Take 1 tablet by mouth twice daily as needed for anxiety. [facility] lamoTRIgine 100 mg tablet 2022-0 1-04 00:00: 00 03-09 00:00 :00 No [id number] 100mg Take 1 tablet by mouth in the morning and 1 tablet in the evening. [facility] lamoTRIgine 100 mg tablet 2022- 1-04 00:00: 00 03-09 00:00 :00 No [id number] 100mg Take 1 tablet by mouth in the morning and 1 tablet in the evening. [facility] lamoTRIgine 100 mg tablet 2022-0 1-04 00:00: 00 03-09 00:00 :00 No [id number] 100mg Take 1 tablet by mouth in the morning and 1 tablet in the evening. [facility] lamoTRIgine 100 mg tablet 2022-0 1-04 00:00: 00 03-09 00:00 :00 No [id number] 100mg Take 1 tablet by mouth in the morning and 1 tablet in the evening. [facility] lithium 600 mg capsule 2022-0 1-04 00:00: 00 02-15 00:00 :00 No [id number] 600mg Take 1 capsule by mouth in the morning and 1 capsule in the evening. [facility] lithium 600 mg capsule 2022-0 1-04 00:00: 00 02-15 00:00 :00 No [id number] 600mg Take 1 capsule by mouth in the morning and 1 capsule in the evening. [facility] lithium 600 mg capsule 0 - 00:00: 00 02-15 00:00 :00 No [id number] 600mg Take 1 capsule by mouth in the morning and 1 capsule in the evening. [facility] lithium 600 mg capsule 2022-0 - 00:00: 00 02-15 00:00 :00 No [id number] 600mg Take 1 capsule by mouth in the morning and 1 capsule in the evening. [facility] lithium 600 mg capsule 02-15 00:00: 00 02-15 00:00 :00 No [id number] 600mg Take 1 capsule by mouth in the morning and 1 capsule in the evening. [facility] lithium 600 mg capsule 0 - 00:00: 00 02-15 00:00 :00 No [id number] 600mg Take 1 capsule by mouth in the morning and 1 capsule in the evening. [facility] lithium 600 mg capsule 02-15 00:00: 00 02-15 00:00 :00 No [id number] 600mg Take 1 capsule by mouth in the morning and 1 capsule in the evening. [facility] lithium 600 mg capsule 2022-0 -04 00:00: 00 02-15 00:00 :00 No [id number] 600mg Take 1 capsule by mouth in the morning and 1 capsule in the evening. [facility] DULoxetine 60 mg capsule 2021-02 00:00: 00 Yes [id number] 60mg Take 1 capsule by mouth in the morning and 1 capsule in the evening. [facility] DULoxetine 60 mg capsule 2021-04-11 00:00: 00 02-15 00:00 :00 No [id number] 60mg Take 1 capsule by mouth in the morning and 1 capsule in the evening. [facility] DULoxetine 60 mg capsule 2021-02 00:00: 00 02-15 00:00 :00 No [id number] 60mg Take 1 capsule by mouth in the morning and 1 capsule in the evening. [facility] DULoxetine 60 mg capsule 2021-02 00:00: 00 02-15 00:00 :00 No [id number] 60mg Take 1 capsule by mouth in the morning and 1 capsule in the evening. [facility] DULoxetine 60 mg capsule 2021-02 00:00: 00 02-15 00:00 :00 No [id number] 60mg Take 1 capsule by mouth in the morning and 1 capsule in the evening. [facility] DULoxetine 60 mg capsule 2021-02 00:00: 00 02-15 00:00 :00 No [id number] 60mg Take 1 capsule by mouth in the morning and 1 capsule in the evening. [facility] DULoxetine 60 mg capsule 2021-02 00:00: 00 02-15 00:00 :00 No [id number] 60mg Take 1 capsule by mouth in the morning and 1 capsule in the evening. [facility] DULoxetine 60 mg capsule 2021-02 00:00: 00 02-15 00:00 :00 No [id number] 60mg Take 1 capsule by mouth in the morning and 1 capsule in the evening. [facility] DULoxetine 60 mg capsule 2021-02 00:00: 00 02-15 00:00 :00 No [id number] 60mg Take 1 capsule by mouth in the morning and 1 capsule in the evening. [facility] lamoTRIgine 100 mg tablet 2021-02 00:00: 00 Yes [id number] 100mg Take 1 tablet by mouth in the morning and 1 tablet in the evening. [facility] lamoTRIgine 100 mg tablet 2021-02 00:00: 00 Yes [id number] 100mg Take 1 tablet by mouth in the morning and 1 tablet in the evening. [facility] lamoTRIgine 100 mg tablet 2021-02 2 00:00: 00 02-15 00:00 :00 No [id number] 100mg Take 1 tablet by mouth in the morning and 1 tablet in the evening. [facility] lamoTRIgine 100 mg tablet 2021-02 00:00: 00 02-15 00:00 :00 No [id number] 100mg Take 1 tablet by mouth in the morning and 1 tablet in the evening. [facility] lamoTRIgine 100 mg tablet 2021-02 00:00: 00 02-15 00:00 :00 No [id number] 100mg Take 1 tablet by mouth in the morning and 1 tablet in the evening. [facility] lamoTRIgine 100 mg tablet 2021-02 00:00: 00 02-15 00:00 :00 No [id number] 100mg Take 1 tablet by mouth in the morning and 1 tablet in the evening. [facility] lamoTRIgine 100 mg tablet 2021-02 00:00: 00 02-15 00:00 :00 No [id number] 100mg Take 1 tablet by mouth in the morning and 1 tablet in the evening. [facility] lamoTRIgine 100 mg tablet 2021-02 00:00: 00 02-15 00:00 :00 No [id number] 100mg Take 1 tablet by mouth in the morning and 1 tablet in the evening. [facility] lamoTRIgine 100 mg tablet 2021-02 00:00: 00 02-15 00:00 :00 No [id number] 100mg Take 1 tablet by mouth in the morning and 1 tablet in the evening. [facility] lamoTRIgine 100 mg tablet 2021-02 00:00: 00 02-15 00:00 :00 No [id number] 100mg Take 1 tablet by mouth in the morning and 1 tablet in the evening. [facility] traZODone 50 mg tablet 2021-02 00:00: 00 Yes [id number] 50mg Take 1 tablet by mouth at bedtime. May cut tablet in half. [facility] lamoTRIgine 100 mg tablet 2021-02 00:00: 00 Yes [id number] 100mg Take 1 tablet by mouth in the morning and 1 tablet in the evening. [facility] traZODone 50 mg tablet 2021-02 00:00: 00 Yes [id number] 50mg Take 1 tablet by mouth at bedtime. May cut tablet in half. [facility] lamoTRIgine 100 mg tablet 2021-02 00:00: 00 Yes [id number] 100mg Take 1 tablet by mouth in the morning and 1 tablet in the evening. [facility] traZODone 50 mg tablet 2021-02 00:00: 00 Yes [id number] 50mg Take 1 tablet by mouth at bedtime. May cut tablet in half. [facility] lamoTRIgine 100 mg tablet 2021-02 00:00: 00 Yes [id number] 100mg Take 1 tablet by mouth in the morning and 1 tablet in the evening. [facility] traZODone 50 mg tablet 2021-02 00:00: 00 Yes [id number] 50mg Take 1 tablet by mouth at bedtime. May cut tablet in half. [facility] traZODone 50 mg tablet 2021-02 00:00: 00 Yes [id number] 50mg Take 1 tablet by mouth at bedtime. May cut tablet in half. [facility] traZODone 50 mg tablet 2021-02 00:00: 00 02-15 00:00 :00 No [id number] 50mg Take 1 tablet by mouth at bedtime. May cut tablet in half. [facility] traZODone 50 mg tablet 2021-02 00:00: 00 02-15 00:00 :00 No [id number] 50mg Take 1 tablet by mouth at bedtime. May cut tablet in half. [facility] traZODone 50 mg tablet 2021-02 00:00: 00 02-15 00:00 :00 No [id number] 50mg Take 1 tablet by mouth at bedtime. May cut tablet in half. [facility] traZODone 50 mg tablet 2021-02 00:00: 00 02-15 00:00 :00 No [id number] 50mg Take 1 tablet by mouth at bedtime. May cut tablet in half. [facility] traZODone 50 mg tablet 2021-02 00:00: 00 02-15 00:00 :00 No [id number] 50mg Take 1 tablet by mouth at bedtime. May cut tablet in half. [facility] traZODone 50 mg tablet 2021-02 00:00: 00 02-15 00:00 :00 No [id number] 50mg Take 1 tablet by mouth at bedtime. May cut tablet in half. [facility] traZODone 50 mg tablet 2021-02 00:00: 00 02-15 00:00 :00 No [id number] 50mg Take 1 tablet by mouth at bedtime. May cut tablet in half. [facility] traZODone 50 mg tablet 2021-02 00:00: 00 02-15 00:00 :00 No [id number] 50mg Take 1 tablet by mouth at bedtime. May cut tablet in half. [facility] lamoTRIgine 100 mg tablet 2021-02 00:00: 00 02-02 00:00 :00 No [id number] 100mg Take 1 tablet by mouth in the morning and 1 tablet in the evening. [facility] lamoTRIgine 100 mg tablet 2021-02 00:00: 00 02-02 00:00 :00 No [id number] 100mg Take 1 tablet by mouth in the morning and 1 tablet in the evening. [facility] lamoTRIgine 100 mg tablet 2021-02 00:00: 00 02-02 00:00 :00 No [id number] 100mg Take 1 tablet by mouth in the morning and 1 tablet in the evening. [facility] lamoTRIgine 100 mg tablet 2021-02 00:00: 00 02-02 00:00 :00 No [id number] 100mg Take 1 tablet by mouth in the morning and 1 tablet in the evening. [facility] tablet 2021-02 00:00: 00 02-02 00:00 :00 No [id number] 100mg Take 1 tablet by mouth in the morning and 1 tablet in the evening. [facility] DULoxetine 60 mg capsule 2021-02 00:00: 00 Yes [id number] 60mg Take 1 capsule by mouth in the morning and 1 capsule in the evening. [facility] clonazePAM 1 mg tablet 2021-02 00:00: 00 Yes [id number] Take 1 tablet by mouth twice daily as needed for anxiety. [facility] DULoxetine 60 mg capsule 2021-02 00:00: 00 Yes [id number] 60mg Take 1 capsule by mouth in the morning and 1 capsule in the evening. [facility] clonazePAM 1 mg tablet 2021-02 00:00: 00 Yes [id number] Take 1 tablet by mouth twice daily as needed for anxiety. [facility] DULoxetine 60 mg capsule 2021-02 00:00: 00 Yes [id number] 60mg Take 1 capsule by mouth in the morning and 1 capsule in the evening. [facility] clonazePAM 1 mg tablet 2021-02 00:00: 00 Yes [id number] Take 1 tablet by mouth twice daily as needed for anxiety. [facility] DULoxetine 60 mg capsule 2021-02 00:00: 00 Yes [id number] 60mg Take 1 capsule by mouth in the morning and 1 capsule in the evening. [facility] clonazePAM 1 mg tablet 2021-02 00:00: 00 Yes [id number] Take 1 tablet by mouth twice daily as needed for anxiety. [facility] DULoxetine 60 mg capsule 2021-02 00:00: 00 Yes [id number] 60mg Take 1 capsule by mouth in the morning and 1 capsule in the evening. [facility] clonazePAM 1 mg tablet 2021-02 00:00: 00 Yes [id number] Take 1 tablet by mouth twice daily as needed for anxiety. [facility] DULoxetine 60 mg capsule 2021-02 00:00: 00 Yes [id number] 60mg Take 1 capsule by mouth in the morning and 1 capsule in the evening. [facility] clonazePAM 1 mg tablet 2021-02 00:00: 00 Yes [id number] Take 1 tablet by mouth twice daily as needed for anxiety. [facility] clonazePAM 1 mg tablet 2021-02 00:00: 00 Yes [id number] Take 1 tablet by mouth twice daily as needed for anxiety. [facility] clonazePAM 1 mg tablet 2021-02 00:00: 00 02-15 00:00 :00 No [id number] Take 1 tablet by mouth twice daily as needed for anxiety. [facility] clonazePAM 1 mg tablet 2021-02 00:00: 00 02-15 00:00 :00 No [id number] Take 1 tablet by mouth twice daily as needed for anxiety. [facility] clonazePAM 1 mg tablet 2021-02 00:00: 00 02-15 00:00 :00 No [id number] Take 1 tablet by mouth twice daily as needed for anxiety. [facility] clonazePAM 1 mg tablet 2021-02 00:00: 00 02-15 00:00 :00 No [id number] Take 1 tablet by mouth twice daily as needed for anxiety. [facility] clonazePAM 1 mg tablet 2021-02 00:00: 00 02-15 00:00 :00 No [id number] Take 1 tablet by mouth twice daily as needed for anxiety. [facility] clonazePAM 1 mg tablet 2021-02 00:00: 00 02-15 00:00 :00 No [id number] Take 1 tablet by mouth twice daily as needed for anxiety. [facility] clonazePAM 1 mg tablet 2021-02 00:00: 00 02-15 00:00 :00 No [id number] Take 1 tablet by mouth twice daily as needed for anxiety. [facility] clonazePAM 1 mg tablet 2021-02 00:00: 00 02-15 00:00 :00 No [id number] Take 1 tablet by mouth twice daily as needed for anxiety. [facility] DULoxetine 60 mg capsule 2021-02 00:00: 00 02-07 00:00 :00 No [id number] 60mg Take 1 capsule by mouth in the morning and 1 capsule in the evening. [facility] DULoxetine 60 mg capsule 2021-02 00:00: 00 02-07 00:00 :00 No [id number] 60mg Take 1 capsule by mouth in the morning and 1 capsule in the evening. [facility] DULoxetine 60 mg capsule 2021-02 00:00: 00 02-07 00:00 :00 No [id number] 60mg Take 1 capsule by mouth in the morning and 1 capsule in the evening. [facility] DULoxetine 60 mg capsule 2021-02 00:00: 00 02-07 00:00 :00 No [id number] 60mg Take 1 capsule by mouth in the morning and 1 capsule in the evening. [facility] DULoxetine 60 mg capsule 2021-02 00:00: 00 02-07 00:00 :00 No [id number] 60mg Take 1 capsule by mouth in the morning and 1 capsule in the evening. [facility] traZODone 50 mg tablet 2021-02 00:00: 00 Yes [id number] 50mg Take 1 tablet by mouth at bedtime. May cut tablet in half. [facility] traZODone 50 mg tablet 2021-02 00:00: 00 Yes [id number] 50mg Take 1 tablet by mouth at bedtime. May cut tablet in half. [facility] traZODone 50 mg tablet 2021-02 00:00: 00 Yes [id number] 50mg Take 1 tablet by mouth at bedtime. May cut tablet in half. [facility] traZODone 50 mg tablet 2021-02 00:00: 00 01-11 00:00 :00 No [id number] 50mg Take 1 tablet by mouth at bedtime. May cut tablet in half. [facility] traZODone 50 mg tablet 2021-02 00:00: 00 01-11 00:00 :00 No [id number] 50mg Take 1 tablet by mouth at bedtime. May cut tablet in half. [facility] traZODone 50 mg tablet 2021-02 00:00: 00 01-11 00:00 :00 No [id number] 50mg Take 1 tablet by mouth at bedtime. May cut tablet in half. [facility] traZODone 50 mg tablet 2021-02 00:00: 00 01-11 00:00 :00 No [id number] 50mg Take 1 tablet by mouth at bedtime. May cut tablet in half. [facility] traZODone 50 mg tablet 2021-02 00:00: 00 01-11 00:00 :00 No [id number] 50mg Take 1 tablet by mouth at bedtime. May cut tablet in half. [facility] DULoxetine 60 mg capsule 2021-02 0 00:00: 00 Yes [id number] 60mg Take 1 capsule by mouth in the morning and 1 capsule in the evening. [facility] DULoxetine 60 mg capsule 2021-02 0- 00:00: 00 Yes [id number] 60mg Take 1 capsule by mouth in the morning and 1 capsule in the evening. [facility] DULoxetine 60 mg capsule 2021-02 0- 00:00: 00 Yes [id number] 60mg Take 1 capsule by mouth in the morning and 1 capsule in the evening. [facility] DULoxetine 60 mg capsule 2021-02 0- 00:00: 00 01-09 00:00 :00 No [id number] 60mg Take 1 capsule by mouth in the morning and 1 capsule in the evening. [facility] DULoxetine 60 mg capsule 2021-02 0- 00:00: 01-09 00:00 :00 No [id number] 60mg Take 1 capsule by mouth in the morning and 1 capsule in the evening. [facility] DULoxetine 60 mg capsule 2021-02 0- 00:00: 00 01-09 00:00 :00 No [id number] 60mg Take 1 capsule by mouth in the morning and 1 capsule in the evening. [facility] DULoxetine 60 mg capsule 2021-02 0- 00:00: 00 01-09 00:00 :00 No [id number] 60mg Take 1 capsule by mouth in the morning and 1 capsule in the evening. [facility] DULoxetine 60 mg capsule 2021-02 0 00:00: 00 01-09 00:00 :00 No [id number] 60mg Take 1 capsule by mouth in the morning and 1 capsule in the evening. [facility] clonazePAM 1 mg tablet 2021-02 0- 00:00: 00 Yes [id number] Take 1 tablet by mouth twice daily as needed for anxiety. [facility] lithium 600 mg capsule 2021-02 0-20 00:00: 00 Yes [id number] 600mg Take 1 capsule by mouth in the morning and 1 capsule in the evening. [facility] lamoTRIgine 25 mg tablet 2021-02 0- 00:00: 00 Yes [id number] 50mg Take 2 tablets by mouth in the morning and 2 tablets in the evening. [facility] clonazePAM 1 mg tablet 2021-02 0-20 00:00: 00 Yes [id number] Take 1 tablet by mouth twice daily as needed for anxiety. [facility] lithium 600 mg capsule 2021-02 0-20 00:00: 00 Yes [id number] 600mg Take 1 capsule by mouth in the morning and 1 capsule in the evening. [facility] lamoTRIgine 25 mg tablet 2021-02 0-20 00:00: 00 Yes [id number] 50mg Take 2 tablets by mouth in the morning and 2 tablets in the evening. [facility] clonazePAM 1 mg tablet 2021- 0-20 00:00: 00 Yes [id number] Take 1 tablet by mouth twice daily as needed for anxiety. [facility] lithium 600 mg capsule 2021-1 0-20 00:00: 00 Yes [id number] 600mg Take 1 capsule by mouth in the morning and 1 capsule in the evening. [facility] lamoTRIgine 25 mg tablet 2021- 0-20 00:00: 00 Yes [id number] 50mg Take 2 tablets by mouth in the morning and 2 tablets in the evening. [facility] lithium 600 mg capsule 2021- 0-20 00:00: 00 Yes [id number] 600mg Take 1 capsule by mouth in the morning and 1 capsule in the evening. [facility] lamoTRIgine 25 mg tablet 2021- 0-20 00:00: 00 Yes [id number] 50mg Take 2 tablets by mouth in the morning and 2 tablets in the evening. [facility] lithium 600 mg capsule 2021- 0-20 00:00: 00 Yes [id number] 600mg Take 1 capsule by mouth in the morning and 1 capsule in the evening. [facility] lamoTRIgine 25 mg tablet 2021- 0-20 00:00: 00 Yes [id number] 50mg Take 2 tablets by mouth in the morning and 2 tablets in the evening. [facility] lithium 600 mg capsule 2021- 0-20 00:00: 00 Yes [id number] 600mg Take 1 capsule by mouth in the morning and 1 capsule in the evening. [facility] lithium 600 mg capsule 2021- 0-20 00:00: 00 Yes [id number] 600mg Take 1 capsule by mouth in the morning and 1 capsule in the evening. [facility] lithium 600 mg capsule 2021-1 0-20 00:00: 00 Yes [id number] 600mg Take 1 capsule by mouth in the morning and 1 capsule in the evening. [facility] lithium 600 mg capsule 2021-1 0-20 00:00: 00 Yes [id number] 600mg Take 1 capsule by mouth in the morning and 1 capsule in the evening. [facility] lithium 600 mg capsule 2021-1 0-20 00:00: 00 Yes [id number] 600mg Take 1 capsule by mouth in the morning and 1 capsule in the evening. [facility] lithium 600 mg capsule 2021-1 0-20 00:00: 00 02-15 00:00 :00 No [id number] 600mg Take 1 capsule by mouth in the morning and 1 capsule in the evening. [facility] lithium 600 mg capsule 2021-1 0-20 00:00: 00 02-15 00:00 :00 No [id number] 600mg Take 1 capsule by mouth in the morning and 1 capsule in the evening. [facility] lithium 600 mg capsule 2021-1 0-20 00:00: 00 02-15 00:00 :00 No [id number] 600mg Take 1 capsule by mouth in the morning and 1 capsule in the evening. [facility] lithium 600 mg capsule 2021-1 0-20 00:00: 00 02-15 00:00 :00 No [id number] 600mg Take 1 capsule by mouth in the morning and 1 capsule in the evening. [facility] lithium 600 mg capsule 2021-1 0-20 00:00: 00 02-15 00:00 :00 No [id number] 600mg Take 1 capsule by mouth in the morning and 1 capsule in the evening. [facility] lithium 600 mg capsule 2021-1 0-20 00:00: 00 02-15 00:00 :00 No [id number] 600mg Take 1 capsule by mouth in the morning and 1 capsule in the evening. [facility] lithium 600 mg capsule 2021-1 0-20 00:00: 00 02-15 00:00 :00 No [id number] 600mg Take 1 capsule by mouth in the morning and 1 capsule in the evening. [facility] lithium 600 mg capsule 2021-1 0-20 00:00: 00 02-15 00:00 :00 No [id number] 600mg Take 1 capsule by mouth in the morning and 1 capsule in the evening. [facility] lamoTRIgine 25 mg tablet 2021- 0-20 00:00: 00 01-11 00:00 :00 No [id number] 50mg Take 2 tablets by mouth in the morning and 2 tablets in the evening. [facility] lamoTRIgine 25 mg tablet 2-1 0-20 00:00: 00 01-11 00:00 :00 No [id number] 50mg Take 2 tablets by mouth in the morning and 2 tablets in the evening. [facility] lamoTRIgine 25 mg tablet 2021-1 0-20 00:00: 00 01-11 00:00 :00 No [id number] 50mg Take 2 tablets by mouth in the morning and 2 tablets in the evening. [facility] lamoTRIgine 25 mg tablet 2021-1 0-20 00:00: 00 01-11 00:00 :00 No [id number] 50mg Take 2 tablets by mouth in the morning and 2 tablets in the evening. [facility] lamoTRIgine 25 mg tablet 2021-1 0-20 00:00: 00 01-11 00:00 :00 No [id number] 50mg Take 2 tablets by mouth in the morning and 2 tablets in the evening. [facility] clonazePAM 1 mg tablet 2021-1 0-20 00:00: 00 01-09 00:00 :00 No [id number] Take 1 tablet by mouth twice daily as needed for anxiety. [facility] clonazePAM 1 mg tablet 2021-1 0-20 00:00: 00 01-09 00:00 :00 No [id number] Take 1 tablet by mouth twice daily as needed for anxiety. [facility] clonazePAM 1 mg tablet 2021-1 0-20 00:00: 00 01-09 00:00 :00 No [id number] Take 1 tablet by mouth twice daily as needed for anxiety. [facility] clonazePAM 1 mg tablet 2021-1 0-20 00:00: 00 01-09 00:00 :00 No [id number] Take 1 tablet by mouth twice daily as needed for anxiety. [facility] clonazePAM 1 mg tablet 2021-1 0-20 00:00: 00 01-09 00:00 :00 No [id number] Take 1 tablet by mouth twice daily as needed for anxiety. [facility] lamoTRIgine 25 mg tablet 2-0 8-26 00:00: 00 Yes [id number] 50mg Take 2 tablets by mouth in the morning and 2 tablets in the evening. [facility] lamoTRIgine 25 mg tablet 2021-0 10-07 00:00: 00 11-30 00:00 :00 No [id number] 50mg Take 2 tablets by mouth in the morning and 2 tablets in the evening. [facility] lamoTRIgine 25 mg tablet 2021-0 10-07 00:00: 00 11-30 00:00 :00 No [id number] 50mg Take 2 tablets by mouth in the morning and 2 tablets in the evening. [facility] clonazePAM 1 mg tablet 2021-0 8 00:00: 00 Yes [id number] Take no more than 1 mg twice daily as needed for anxiety [facility] lithium 600 mg capsule 2021-0 8 00:00: 00 Yes [id number] 600mg Take 1 capsule by mouth in the morning and 1 capsule in the evening. [facility] clonazePAM 1 mg tablet 2021-0 10-06 00:00: 00 11-30 00:00 :00 No [id number] Take no more than 1 mg twice daily as needed for anxiety [facility] lithium 600 mg capsule 2021-0 10-06 00:00: 00 11-30 00:00 :00 No [id number] 600mg Take 1 capsule by mouth in the morning and 1 capsule in the evening. [facility] clonazePAM 1 mg tablet 2021-0 10-06 00:00: 00 11-30 00:00 :00 No [id number] Take no more than 1 mg twice daily as needed for anxiety [facility] lithium 600 mg capsule 2021-0 825 00:00: 00 11-30 00:00 :00 No [id number] 600mg Take 1 capsule by mouth in the morning and 1 capsule in the evening. [facility] Lamotrigine 50 mg tablet 2021-0 825 00:00: 00 10-07 00:00 :00 No [id number] 50mg Take 1 tablet by mouth in the morning and 1 tablet in the evening. [facility] Lamotrigine 50 mg tablet 2021-0 8-11 00:00: 00 10-06 00:00 :00 No [id number] 50mg Take 1 tablet by mouth in the morning and 1 tablet in the evening. [facility] DULoxetine 60 mg capsule 0 7-27 00:00: 00 Yes [id number] 60mg Take 1 capsule by mouth in the morning and 1 capsule in the evening. [facility] DULoxetine 60 mg capsule 0 7-27 00:00: 00 12-05 00:00 :00 No [id number] 60mg Take 1 capsule by mouth in the morning and 1 capsule in the evening. [facility] DULoxetine 60 mg capsule 0 09-07 00:00: 00 12-05 00:00 :00 No [id number] 60mg Take 1 capsule by mouth in the morning and 1 capsule in the evening. [facility] DULoxetine 60 mg capsule 2021-0 09-07 00:00: 00 12-05 00:00 :00 No [id number] 60mg Take 1 capsule by mouth in the morning and 1 capsule in the evening. [facility] Lamotrigine 50 mg tablet 2021-0 7-18 00:00: 00 09-22 00:00 :00 No [id number] 50mg Take 1 tablet by mouth in the morning and 1 tablet in the evening. [facility] lithium 600 mg capsule 2021-0 7-13 00:00: 00 10-06 00:00 :00 No [id number] 600mg Take 1 capsule by mouth in the morning and 1 capsule in the evening. [facility] traZODone 50 mg tablet 2021-0 28 00:00: 00 Yes [id number] 50mg Take 1 tablet by mouth at bedtime. May cut tablet in half. [facility] DULoxetine 60 mg capsule 2021-0 6-28 00:00: 00 Yes [id number] 60mg Take 1 capsule by mouth 2 (two) times daily. [facility] traZODone 50 mg tablet 2021-0 6-28 00:00: 00 Yes [id number] 50mg Take 1 tablet by mouth at bedtime. May cut tablet in half. [facility] DULoxetine 60 mg capsule 0 28 00:00: 00 Yes [id number] 60mg Take 1 capsule by mouth 2 (two) times daily. [facility] traZODone 50 mg tablet 0 08-09 00:00: 00 Yes [id number] 50mg Take 1 tablet by mouth at bedtime. May cut tablet in half. [facility] DULoxetine 60 mg capsule 0 08-09 00:00: 00 Yes [id number] 60mg Take 1 capsule by mouth 2 (two) times daily. [facility] DULoxetine 60 mg capsule 0 08-09 00:00: 00 Yes [id number] 60mg Take 1 capsule by mouth 2 (two) times daily. [facility] traZODone 50 mg tablet 0 08-09 00:00: 00 01-02 00:00 :00 No [id number] 50mg Take 1 tablet by mouth at bedtime. May cut tablet in half. [facility] traZODone 50 mg tablet 0 08-09 00:00: 00 01-02 00:00 :00 No [id number] 50mg Take 1 tablet by mouth at bedtime. May cut tablet in half. [facility] traZODone 50 mg tablet 0 08-09 00:00: 00 01-02 00:00 :00 No [id number] 50mg Take 1 tablet by mouth at bedtime. May cut tablet in half. [facility] traZODone 50 mg tablet 2021-0 08-09 00:00: 00 01-02 00:00 :00 No [id number] 50mg Take 1 tablet by mouth at bedtime. May cut tablet in half. [facility] traZODone 50 mg tablet 0 08-09 00:00: 00 01-02 00:00 :00 No [id number] 50mg Take 1 tablet by mouth at bedtime. May cut tablet in half. [facility] clonazePAM 1 mg tablet 28 00:00: 00 10-06 00:00 :00 No [id number] Take no more than 1 mg twice daily as needed for anxiety [facility] DULoxetine 60 mg capsule 14 00:00: 00 08-09 00:00 :00 No [id number] 60mg Take 1 capsule by mouth 2 (two) times daily. [facility] traZODone 50 mg tablet 05-26 00:00: 00 08-09 00:00 :00 No [id number] 50mg Take 1 tablet by mouth at bedtime. May cut tablet in half. [facility] DULoxetine 60 mg capsule 05-26 00:00: 00 08-09 00:00 :00 No [id number] 60mg Take 1 capsule by mouth 2 (two) times daily. [facility] traZODone 50 mg tablet 05-26 00:00: 00 08-09 00:00 :00 No [id number] 50mg Take 1 tablet by mouth at bedtime. May cut tablet in half. [facility] vitamin B-12 1,000 mcg tablet 05-23 00:00: 00 Yes [id number] 1000ug Take 1 tablet by mouth daily. [facility] cyanocobala min 1,000 mcg/mL injection 05-23 00:00: 00 Yes [id number] 1000ug 1 mL by Intramuscu lar route weekly. [facility] vitamin B-12 1,000 mcg tablet 05-23 00:00: 00 Yes [id number] 1000ug Take 1 tablet by mouth daily. [facility] cyanocobala min 1,000 mcg/mL injection 05-23 00:00: 00 Yes [id number] 1000ug 1 mL by Intramuscu lar route weekly. [facility] vitamin B-12 1,000 mcg tablet 05-23 00:00: 00 Yes [id number] 1000ug Take 1 tablet by mouth daily. [facility] cyanocobala min 1,000 mcg/mL injection 2-0 4-11 00:00: 00 Yes [id number] 1000ug 1 mL by Intramuscu lar route weekly. [facility] vitamin B-12 1,000 mcg tablet 2021-0 4-11 00:00: 00 Yes [id number] 1000ug Take 1 tablet by mouth daily. [facility] cyanocobala min 1,000 mcg/mL injection 2021-0 4-11 00:00: 00 Yes [id number] 1000ug 1 mL by Intramuscu lar route weekly. [facility] vitamin B-12 1,000 mcg tablet 2021-0 411 00:00: 00 Yes [id number] 1000ug Take 1 tablet by mouth daily. [facility] cyanocobala min 1,000 mcg/mL injection 2021-0 4 00:00: 00 Yes [id number] 1000ug 1 mL by Intramuscu lar route weekly. [facility] vitamin B-12 1,000 mcg tablet 2021-0 4 00:00: 00 Yes [id number] 1000ug Take 1 tablet by mouth daily. [facility] cyanocobala min 1,000 mcg/mL injection 2021-0 4 00:00: 00 Yes [id number] 1000ug 1 mL by Intramuscu lar route weekly. [facility] vitamin B-12 1,000 mcg tablet 2021-0 411 00:00: 00 Yes [id number] 1000ug Take 1 tablet by mouth daily. [facility] cyanocobala min 1,000 mcg/mL injection 2021-0 4-11 00:00: 00 Yes [id number] 1000ug 1 mL by Intramuscu lar route weekly. [facility] vitamin B-12 1,000 mcg tablet 2-0 4-11 00:00: 00 Yes [id number] 1000ug Take 1 tablet by mouth daily. [facility] cyanocobala min 1,000 mcg/mL injection 2021-0 4-11 00:00: 00 Yes [id number] 1000ug 1 mL by Intramuscu lar route weekly. [facility] vitamin B-12 1,000 mcg tablet 2-0 411 00:00: 00 Yes [id number] 1000ug Take 1 tablet by mouth daily. [facility] cyanocobala min 1,000 mcg/mL injection 2-0 411 00:00: 00 Yes [id number] 1000ug 1 mL by Intramuscu lar route weekly. [facility] vitamin B-12 1,000 mcg tablet 2-0 4-11 00:00: 00 Yes [id number] 1000ug Take 1 tablet by mouth daily. [facility] cyanocobala min 1,000 mcg/mL injection 2-0 4 00:00: 00 Yes [id number] 1000ug 1 mL by Intramuscu lar route weekly. [facility] vitamin B-12 1,000 mcg tablet 2021-0 05-23 00:00: 00 Yes [id number] 1000ug Take 1 tablet by mouth daily. [facility] cyanocobala min 1,000 mcg/mL injection 2-0 05-23 00:00: 00 Yes [id number] 1000ug 1 mL by Intramuscu lar route weekly. [facility] vitamin B-12 1,000 mcg tablet 2-0 05-23 00:00: 00 Yes [id number] 1000ug Take 1 tablet by mouth daily. [facility] cyanocobala min 1,000 mcg/mL injection 2-0 05-23 00:00: 00 Yes [id number] 1000ug 1 mL by Intramuscu lar route weekly. [facility] vitamin B-12 1,000 mcg tablet 2-0 4 00:00: 00 Yes [id number] 1000ug Take 1 tablet by mouth daily. [facility] cyanocobala min 1,000 mcg/mL injection 2-0 4 00:00: 00 Yes [id number] 1000ug 1 mL by Intramuscu lar route weekly. [facility] vitamin B-12 1,000 mcg tablet 2-0 4 00:00: 00 Yes [id number] 1000ug Take 1 tablet by mouth daily. [facility] cyanocobala min 1,000 mcg/mL injection 2-0 4-11 00:00: 00 Yes [id number] 1000ug 1 mL by Intramuscu lar route weekly. [facility] vitamin B-12 1,000 mcg tablet 2021-0 411 00:00: 00 Yes [id number] 1000ug Take 1 tablet by mouth daily. [facility] cyanocobala min 1,000 mcg/mL injection 2021-0 4-11 00:00: 00 Yes [id number] 1000ug 1 mL by Intramuscu lar route weekly. [facility] vitamin B-12 1,000 mcg tablet 2021-0 05-23 00:00: 00 Yes [id number] 1000ug Take 1 tablet by mouth daily. [facility] cyanocobala min 1,000 mcg/mL injection 2021-0 05-23 00:00: 00 Yes [id number] 1000ug 1 mL by Intramuscu lar route weekly. [facility] vitamin B-12 1,000 mcg tablet 2021-0 05-23 00:00: 00 Yes [id number] 1000ug Take 1 tablet by mouth daily. [facility] cyanocobala min 1,000 mcg/mL injection 2021-0 05-23 00:00: 00 Yes [id number] 1000ug 1 mL by Intramuscu lar route weekly. [facility] vitamin B-12 1,000 mcg tablet 2021-0 05-23 00:00: 00 Yes [id number] 1000ug Take 1 tablet by mouth daily. [facility] cyanocobala min 1,000 mcg/mL injection 2021-0 05-23 00:00: 00 Yes [id number] 1000ug 1 mL by Intramuscu lar route weekly. [facility] vitamin B-12 1,000 mcg tablet 2021-0 05-23 00:00: 00 Yes [id number] 1000ug Take 1 tablet by mouth daily. [facility] cyanocobala min 1,000 mcg/mL injection 2021-0 411 00:00: 00 Yes [id number] 1000ug 1 mL by Intramuscu lar route weekly. [facility] vitamin B-12 1,000 mcg tablet 2021-0 4-11 00:00: 00 Yes [id number] 1000ug Take 1 tablet by mouth daily. [facility] cyanocobala min 1,000 mcg/mL injection 2021-0 05-23 00:00: 00 Yes [id number] 1000ug 1 mL by Intramuscu lar route weekly. [facility] vitamin B-12 1,000 mcg tablet 2021-0 -11 00:00: 00 Yes [id number] 1000ug Take 1 tablet by mouth daily. [facility] cyanocobala min 1,000 mcg/mL injection 2021-0 05-23 00:00: 00 Yes [id number] 1000ug 1 mL by Intramuscu lar route weekly. [facility] vitamin B-12 1,000 mcg tablet 0 05-23 00:00: 00 Yes [id number] 1000ug Take 1 tablet by mouth daily. [facility] cyanocobala min 1,000 mcg/mL injection 2021-0 05-23 00:00: 00 Yes [id number] 1000ug 1 mL by Intramuscu lar route weekly. [facility] vitamin B-12 1,000 mcg tablet 2021-0 05-23 00:00: 00 Yes [id number] 1000ug Take 1 tablet by mouth daily. [facility] cyanocobala min 1,000 mcg/mL injection 0 05-23 00:00: 00 Yes [id number] 1000ug 1 mL by Intramuscu lar route weekly. [facility] vitamin B-12 1,000 mcg tablet 2021-0 05-23 00:00: 00 Yes [id number] 1000ug Take 1 tablet by mouth daily. [facility] cyanocobala min 1,000 mcg/mL injection 2021-0 05-23 00:00: 00 Yes [id number] 1000ug 1 mL by Intramuscu lar route weekly. [facility] vitamin B-12 1,000 mcg tablet 2021-0 05-23 00:00: 00 Yes [id number] 1000ug Take 1 tablet by mouth daily. [facility] cyanocobala min 1,000 mcg/mL injection 2021-0 11 00:00: 00 Yes [id number] 1000ug 1 mL by Intramuscu lar route weekly. [facility] vitamin B-12 1,000 mcg tablet 2-0 4-11 00:00: 00 Yes [id number] 1000ug Take 1 tablet by mouth daily. [facility] cyanocobala min 1,000 mcg/mL injection 2021-0 4-11 00:00: 00 Yes [id number] 1000ug 1 mL by Intramuscu lar route weekly. [facility] vitamin B-12 1,000 mcg tablet 2021-0 4-11 00:00: 00 Yes [id number] 1000ug Take 1 tablet by mouth daily. [facility] cyanocobala min 1,000 mcg/mL injection 2021-0 4 00:00: 00 Yes [id number] 1000ug 1 mL by Intramuscu lar route weekly. [facility] vitamin B-12 1,000 mcg tablet 2021-0 05-23 00:00: 00 Yes [id number] 1000ug Take 1 tablet by mouth daily. [facility] cyanocobala min 1,000 mcg/mL injection 2021-0 4 00:00: 00 Yes [id number] 1000ug 1 mL by Intramuscu lar route weekly. [facility] vitamin B-12 1,000 mcg tablet 2021-0 4 00:00: 00 Yes [id number] 1000ug Take 1 tablet by mouth daily. [facility] cyanocobala min 1,000 mcg/mL injection 2021-0 411 00:00: 00 Yes [id number] 1000ug 1 mL by Intramuscu lar route weekly. [facility] vitamin B-12 1,000 mcg tablet 2021-0 4-11 00:00: 00 Yes [id number] 1000ug Take 1 tablet by mouth daily. [facility] cyanocobala min 1,000 mcg/mL injection 2021-0 4-11 00:00: 00 Yes [id number] 1000ug 1 mL by Intramuscu lar route weekly. [facility] vitamin B-12 1,000 mcg tablet 2-0 4-11 00:00: 00 Yes [id number] 1000ug Take 1 tablet by mouth daily. [facility] cyanocobala min 1,000 mcg/mL injection 2-0 4-11 00:00: 00 Yes [id number] 1000ug 1 mL by Intramuscu lar route weekly. [facility] vitamin B-12 1,000 mcg tablet 2-0 4-11 00:00: 00 Yes [id number] 1000ug Take 1 tablet by mouth daily. [facility] cyanocobala min 1,000 mcg/mL injection 2021-0 411 00:00: 00 Yes [id number] 1000ug 1 mL by Intramuscu lar route weekly. [facility] vitamin B-12 1,000 mcg tablet 2021-0 4 00:00: 00 Yes [id number] 1000ug Take 1 tablet by mouth daily. [facility] cyanocobala min 1,000 mcg/mL injection 2021-0 11 00:00: 00 Yes [id number] 1000ug 1 mL by Intramuscu lar route weekly. [facility] vitamin B-12 1,000 mcg tablet 2-0 411 00:00: 00 Yes [id number] 1000ug Take 1 tablet by mouth daily. [facility] cyanocobala min 1,000 mcg/mL injection 2021-0 05-23 00:00: 00 Yes [id number] 1000ug 1 mL by Intramuscu lar route weekly. [facility] vitamin B-12 1,000 mcg tablet 2-0 4 00:00: 00 Yes [id number] 1000ug Take 1 tablet by mouth daily. [facility] cyanocobala min 1,000 mcg/mL injection 2-0 411 00:00: 00 Yes [id number] 1000ug 1 mL by Intramuscu lar route weekly. [facility] vitamin B-12 1,000 mcg tablet 2-0 4-11 00:00: 00 Yes [id number] 1000ug Take 1 tablet by mouth daily. [facility] cyanocobala min 1,000 mcg/mL injection 2-0 4-11 00:00: 00 Yes [id number] 1000ug 1 mL by Intramuscu lar route weekly. [facility] vitamin B-12 1,000 mcg tablet 2-0 4-11 00:00: 00 Yes [id number] 1000ug Take 1 tablet by mouth daily. [facility] cyanocobala min 1,000 mcg/mL injection 2-0 4-11 00:00: 00 Yes [id number] 1000ug 1 mL by Intramuscu lar route weekly. [facility] vitamin B-12 1,000 mcg tablet 2-0 4-11 00:00: 00 Yes [id number] 1000ug Take 1 tablet by mouth daily. [facility] cyanocobala min 1,000 mcg/mL injection 2-0 4-11 00:00: 00 Yes [id number] 1000ug 1 mL by Intramuscu lar route weekly. [facility] vitamin B-12 1,000 mcg tablet 2-0 4-11 00:00: 00 Yes [id number] 1000ug Take 1 tablet by mouth daily. [facility] cyanocobala min 1,000 mcg/mL injection 2021-0 4-11 00:00: 00 Yes [id number] 1000ug 1 mL by Intramuscu lar route weekly. [facility] vitamin B-12 1,000 mcg tablet 2-0 411 00:00: 00 Yes [id number] 1000ug Take 1 tablet by mouth daily. [facility] cyanocobala min 1,000 mcg/mL injection 2-0 4-11 00:00: 00 Yes [id number] 1000ug 1 mL by Intramuscu lar route weekly. [facility] vitamin B-12 1,000 mcg tablet 2-0 4-11 00:00: 00 Yes [id number] 1000ug Take 1 tablet by mouth daily. [facility] cyanocobala min 1,000 mcg/mL injection 2-0 4-11 00:00: 00 Yes [id number] 1000ug 1 mL by Intramuscu lar route weekly. [facility] vitamin B-12 1,000 mcg tablet 2-0 4-11 00:00: 00 Yes [id number] 1000ug Take 1 tablet by mouth daily. [facility] cyanocobala min 1,000 mcg/mL injection 2-0 4-11 00:00: 00 Yes [id number] 1000ug 1 mL by Intramuscu lar route weekly. [facility] vitamin B-12 1,000 mcg tablet 2021-0 4-11 00:00: 00 Yes [id number] 1000ug Take 1 tablet by mouth daily. [facility] cyanocobala min 1,000 mcg/mL injection 2021-0 4-11 00:00: 00 Yes [id number] 1000ug 1 mL by Intramuscu lar route weekly. [facility] vitamin B-12 1,000 mcg tablet 2-0 4-11 00:00: 00 Yes [id number] 1000ug Take 1 tablet by mouth daily. [facility] cyanocobala min 1,000 mcg/mL injection 2021-0 4-11 00:00: 00 Yes [id number] 1000ug 1 mL by Intramuscu lar route weekly. [facility] vitamin B-12 1,000 mcg tablet 2021-0 4-11 00:00: 00 Yes [id number] 1000ug Take 1 tablet by mouth daily. [facility] cyanocobala min 1,000 mcg/mL injection 2021-0 411 00:00: 00 Yes [id number] 1000ug 1 mL by Intramuscu lar route weekly. [facility] vitamin B-12 1,000 mcg tablet 2-0 411 00:00: 00 Yes [id number] 1000ug Take 1 tablet by mouth daily. [facility] cyanocobala min 1,000 mcg/mL injection 2021-0 411 00:00: 00 Yes [id number] 1000ug 1 mL by Intramuscu lar route weekly. [facility] vitamin B-12 1,000 mcg tablet 2-0 4-11 00:00: 00 Yes [id number] 1000ug Take 1 tablet by mouth daily. [facility] cyanocobala min 1,000 mcg/mL injection 2-0 4-11 00:00: 00 Yes [id number] 1000ug 1 mL by Intramuscu lar route weekly. [facility] vitamin B-12 1,000 mcg tablet 2021-0 4-11 00:00: 00 Yes [id number] 1000ug Take 1 tablet by mouth daily. [facility] cyanocobala min 1,000 mcg/mL injection 2021-0 4-11 00:00: 00 Yes [id number] 1000ug 1 mL by Intramuscu lar route weekly. [facility] vitamin B-12 1,000 mcg tablet 2021-0 4-11 00:00: 00 Yes [id number] 1000ug Take 1 tablet by mouth daily. [facility] cyanocobala min 1,000 mcg/mL injection 2021-0 4-11 00:00: 00 Yes [id number] 1000ug 1 mL by Intramuscu lar route weekly. [facility] vitamin B-12 1,000 mcg tablet 2021-0 05-23 00:00: 00 Yes [id number] 1000ug Take 1 tablet by mouth daily. [facility] cyanocobala min 1,000 mcg/mL injection 2021-0 05-23 00:00: 00 Yes [id number] 1000ug 1 mL by Intramuscu lar route weekly. [facility] vitamin B-12 1,000 mcg tablet 2021-0 05-23 00:00: 00 Yes [id number] 1000ug Take 1 tablet by mouth daily. [facility] cyanocobala min 1,000 mcg/mL injection 2021-0 11 00:00: 00 Yes [id number] 1000ug 1 mL by Intramuscu lar route weekly. [facility] vitamin B-12 1,000 mcg tablet 2021-0 11 00:00: 00 Yes [id number] 1000ug Take 1 tablet by mouth daily. [facility] cyanocobala min 1,000 mcg/mL injection 2021-0 4-11 00:00: 00 Yes [id number] 1000ug 1 mL by Intramuscu lar route weekly. [facility] vitamin B-12 1,000 mcg tablet 2021-0 4-11 00:00: 00 Yes [id number] 1000ug Take 1 tablet by mouth daily. [facility] cyanocobala min 1,000 mcg/mL injection 2-0 4-11 00:00: 00 Yes [id number] 1000ug 1 mL by Intramuscu lar route weekly. [facility] vitamin B-12 1,000 mcg tablet 2021-0 4-11 00:00: 00 Yes [id number] 1000ug Take 1 tablet by mouth daily. [facility] cyanocobala min 1,000 mcg/mL injection 2021-0 4-11 00:00: 00 Yes [id number] 1000ug 1 mL by Intramuscu lar route weekly. [facility] vitamin B-12 1,000 mcg tablet 2021-0 411 00:00: 00 Yes [id number] 1000ug Take 1 tablet by mouth daily. [facility] cyanocobala min 1,000 mcg/mL injection 2021-0 4 00:00: 00 Yes [id number] 1000ug 1 mL by Intramuscu lar route weekly. [facility] vitamin B-12 1,000 mcg tablet 2021-0 4 00:00: 00 Yes [id number] 1000ug Take 1 tablet by mouth daily. [facility] cyanocobala min 1,000 mcg/mL injection 2021-0 4 00:00: 00 Yes [id number] 1000ug 1 mL by Intramuscu lar route weekly. [facility] vitamin B-12 1,000 mcg tablet 2021-0 411 00:00: 00 Yes [id number] 1000ug Take 1 tablet by mouth daily. [facility] cyanocobala min 1,000 mcg/mL injection 2021-0 4-11 00:00: 00 Yes [id number] 1000ug 1 mL by Intramuscu lar route weekly. [facility] vitamin B-12 1,000 mcg tablet 2-0 4-11 00:00: 00 Yes [id number] 1000ug Take 1 tablet by mouth daily. [facility] cyanocobala min 1,000 mcg/mL injection 2021-0 4-11 00:00: 00 Yes [id number] 1000ug 1 mL by Intramuscu lar route weekly. [facility] vitamin B-12 1,000 mcg tablet 2-0 4-11 00:00: 00 11-03 00:00 :00 No [id number] 1000ug Take 1 tablet by mouth daily. [facility] cyanocobala min 1,000 mcg/mL injection 2021-0 4-11 00:00: 00 11-03 00:00 :00 No [id number] 1000ug 1 mL by Intramuscu lar route weekly. [facility] vitamin B-12 1,000 mcg tablet 2021-0 4-11 00:00: 00 11-03 00:00 :00 No [id number] 1000ug Take 1 tablet by mouth daily. [facility] cyanocobala min 1,000 mcg/mL injection 2021-0 4-11 00:00: 00 11-03 00:00 :00 No [id number] 1000ug 1 mL by Intramuscu lar route weekly. [facility] vitamin B-12 1,000 mcg tablet 2021-0 4-11 00:00: 00 11-03 00:00 :00 No [id number] 1000ug Take 1 tablet by mouth daily. [facility] cyanocobala min 1,000 mcg/mL injection 2021-0 4-11 00:00: 00 11-03 00:00 :00 No [id number] 1000ug 1 mL by Intramuscu lar route weekly. [facility] vitamin B-12 1,000 mcg tablet 2021-0 4-11 00:00: 00 11-03 00:00 :00 No [id number] 1000ug Take 1 tablet by mouth daily. [facility] cyanocobala min 1,000 mcg/mL injection 2021-0 4-11 00:00: 00 11-03 00:00 :00 No [id number] 1000ug 1 mL by Intramuscu lar route weekly. [facility] vitamin B-12 1,000 mcg tablet 2-0 4-11 00:00: 00 11-03 00:00 :00 No [id number] 1000ug Take 1 tablet by mouth daily. [facility] cyanocobala min 1,000 mcg/mL injection 2022-0 4-11 00:00: 00 11-03 00:00 :00 No [id number] 1000ug 1 mL by Intramuscu lar route weekly. [facility] vitamin B-12 1,000 mcg tablet 2-0 4-11 00:00: 00 11-03 00:00 :00 No [id number] 1000ug Take 1 tablet by mouth daily. [facility] cyanocobala min 1,000 mcg/mL injection 2-0 4-11 00:00: 00 11-03 00:00 :00 No [id number] 1000ug 1 mL by Intramuscu lar route weekly. [facility] vitamin B-12 1,000 mcg tablet 2021-0 4-11 00:00: 00 11-03 00:00 :00 No [id number] 1000ug Take 1 tablet by mouth daily. [facility] cyanocobala min 1,000 mcg/mL injection 2021-0 4-11 00:00: 00 11-03 00:00 :00 No [id number] 1000ug 1 mL by Intramuscu lar route weekly. [facility] vitamin B-12 1,000 mcg tablet 2021-0 4-11 00:00: 00 11-03 00:00 :00 No [id number] 1000ug Take 1 tablet by mouth daily. [facility] cyanocobala min 1,000 mcg/mL injection 2-0 4-11 00:00: 00 11-03 00:00 :00 No [id number] 1000ug 1 mL by Intramuscu lar route weekly. [facility] vitamin B-12 1,000 mcg tablet 2-0 4-11 00:00: 00 11-03 00:00 :00 No [id number] 1000ug Take 1 tablet by mouth daily. [facility] cyanocobala min 1,000 mcg/mL injection 2-0 4-11 00:00: 00 11-03 00:00 :00 No [id number] 1000ug 1 mL by Intramuscu lar route weekly. [facility] vitamin B-12 1,000 mcg tablet 05-23 00:00: 00 11-03 00:00 :00 No [id number] 1000ug Take 1 tablet by mouth daily. [facility] cyanocobala min 1,000 mcg/mL injection 05-23 00:00: 00 11-03 00:00 :00 No [id number] 1000ug 1 mL by Intramuscu lar route weekly. [facility] losartan potassium (LOSARTAN ORAL) 05-17 09:24: 36 Yes 20mg Take 20 mg by mouth. [facility] FUROSEMIDE ORAL 05-17 09:24: 36 Yes 40mg Take 40 mg by mouth daily. [facility] losartan potassium (LOSARTAN ORAL) 05-17 09:24: 36 Yes 20mg Take 20 mg by mouth. [facility] FUROSEMIDE ORAL 05-17 09:24: 36 Yes 40mg Take 40 mg by mouth daily. [facility] losartan potassium (LOSARTAN ORAL) 05-17 09:24: 36 Yes 20mg Take 20 mg by mouth. [facility] FUROSEMIDE ORAL 05-17 09:24: 36 Yes 40mg Take 40 mg by mouth daily. [facility] losartan potassium (LOSARTAN ORAL) 05-17 09:24: 36 Yes 20mg Take 20 mg by mouth. [facility] FUROSEMIDE ORAL 05-17 09:24: 36 Yes 40mg Take 40 mg by mouth daily. [facility] losartan potassium (LOSARTAN ORAL) 05-17 09:24: 36 Yes 20mg Take 20 mg by mouth. [facility] FUROSEMIDE ORAL 05-17 09:24: 36 Yes 40mg Take 40 mg by mouth daily. [facility] losartan potassium (LOSARTAN ORAL) 05-17 09:24: 36 Yes 20mg Take 20 mg by mouth. [facility] FUROSEMIDE ORAL 05-17 09:24: 36 Yes 40mg Take 40 mg by mouth daily. [facility] losartan potassium (LOSARTAN ORAL) 05-17 09:24: 36 Yes 20mg Take 20 mg by mouth. [facility] FUROSEMIDE ORAL 05-17 09:24: 36 Yes 40mg Take 40 mg by mouth daily. [facility] losartan potassium (LOSARTAN ORAL) 05-17 09:24: 36 Yes 20mg Take 20 mg by mouth. [facility] FUROSEMIDE ORAL 05-17 09:24: 36 Yes 40mg Take 40 mg by mouth daily. [facility] losartan potassium (LOSARTAN ORAL) 05-17 09:24: 36 Yes 20mg Take 20 mg by mouth. [facility] FUROSEMIDE ORAL 05-17 09:24: 36 Yes 40mg Take 40 mg by mouth daily. [facility] losartan potassium (LOSARTAN ORAL) 05-17 09:24: 36 Yes 20mg Take 20 mg by mouth. [facility] FUROSEMIDE ORAL 05-17 09:24: 36 Yes 40mg Take 40 mg by mouth daily. [facility] losartan potassium (LOSARTAN ORAL) 05-17 09:24: 36 Yes 20mg Take 20 mg by mouth. [facility] FUROSEMIDE ORAL 05-17 09:24: 36 Yes 40mg Take 40 mg by mouth daily. [facility] losartan potassium (LOSARTAN ORAL) 05-17 09:24: 36 Yes 20mg Take 20 mg by mouth. [facility] FUROSEMIDE ORAL 05-17 09:24: 36 Yes 40mg Take 40 mg by mouth daily. [facility] losartan potassium (LOSARTAN ORAL) 05-17 09:24: 36 Yes 20mg Take 20 mg by mouth. [facility] FUROSEMIDE ORAL 05-17 09:24: 36 Yes 40mg Take 40 mg by mouth daily. [facility] losartan potassium (LOSARTAN ORAL) 0 05-17 09:24: 36 Yes 20mg Take 20 mg by mouth. [facility] FUROSEMIDE ORAL 05 09:24: 36 Yes 40mg Take 40 mg by mouth daily. [facility] losartan potassium (LOSARTAN ORAL) 05-17 09:24: 36 Yes 20mg Take 20 mg by mouth. [facility] FUROSEMIDE ORAL 05-17 09:24: 36 Yes 40mg Take 40 mg by mouth daily. [facility] losartan potassium (LOSARTAN ORAL) 05-17 09:24: 36 Yes 20mg Take 20 mg by mouth. [facility] FUROSEMIDE ORAL 05-17 09:24: 36 Yes 40mg Take 40 mg by mouth daily. [facility] losartan potassium (LOSARTAN ORAL) 05-17 09:24: 36 Yes 20mg Take 20 mg by mouth. [facility] FUROSEMIDE ORAL 05-17 09:24: 36 Yes 40mg Take 40 mg by mouth daily. [facility] losartan potassium (LOSARTAN ORAL) 05-17 09:24: 36 Yes 20mg Take 20 mg by mouth. [facility] FUROSEMIDE ORAL 05-17 09:24: 36 Yes 40mg Take 40 mg by mouth daily. [facility] losartan potassium (LOSARTAN ORAL) 05-17 09:24: 36 Yes 20mg Take 20 mg by mouth. [facility] FUROSEMIDE ORAL 05-17 09:24: 36 Yes 40mg Take 40 mg by mouth daily. [facility] losartan potassium (LOSARTAN ORAL) 05-17 09:24: 36 Yes 20mg Take 20 mg by mouth. [facility] FUROSEMIDE ORAL 05-17 09:24: 36 Yes 40mg Take 40 mg by mouth daily. [facility] losartan potassium (LOSARTAN ORAL) 05-17 09:24: 36 Yes 20mg Take 20 mg by mouth. [facility] FUROSEMIDE ORAL 05-17 09:24: 36 Yes 40mg Take 40 mg by mouth daily. [facility] losartan potassium (LOSARTAN ORAL) 0 05-17 09:24: 36 Yes 20mg Take 20 mg by mouth. [facility] FUROSEMIDE ORAL 05-17 09:24: 36 Yes 40mg Take 40 mg by mouth daily. [facility] losartan potassium (LOSARTAN ORAL) 05-17 09:24: 36 Yes 20mg Take 20 mg by mouth. [facility] FUROSEMIDE ORAL 05-17 09:24: 36 Yes 40mg Take 40 mg by mouth daily. [facility] losartan potassium (LOSARTAN ORAL) 05-17 09:24: 36 Yes 20mg Take 20 mg by mouth. [facility] FUROSEMIDE ORAL 05-17 09:24: 36 Yes 40mg Take 40 mg by mouth daily. [facility] losartan potassium (LOSARTAN ORAL) 05-17 09:24: 36 Yes 20mg Take 20 mg by mouth. [facility] FUROSEMIDE ORAL 05-17 09:24: 36 Yes 40mg Take 40 mg by mouth daily. [facility] losartan potassium (LOSARTAN ORAL) 05-17 09:24: 36 Yes 20mg Take 20 mg by mouth. [facility] FUROSEMIDE ORAL 05-17 09:24: 36 Yes 40mg Take 40 mg by mouth daily. [facility] losartan potassium (LOSARTAN ORAL) 05-17 09:24: 36 Yes 20mg Take 20 mg by mouth. [facility] FUROSEMIDE ORAL 05-17 09:24: 36 Yes 40mg Take 40 mg by mouth daily. [facility] losartan potassium (LOSARTAN ORAL) 05-17 09:24: 36 Yes 20mg Take 20 mg by mouth. [facility] FUROSEMIDE ORAL 0 05-17 09:24: 36 Yes 40mg Take 40 mg by mouth daily. [facility] losartan potassium (LOSARTAN ORAL) 05-17 09:24: 36 Yes 20mg Take 20 mg by mouth. [facility] FUROSEMIDE ORAL 0 05-17 09:24: 36 Yes 40mg Take 40 mg by mouth daily. [facility] losartan potassium (LOSARTAN ORAL) 05-17 09:24: 36 Yes 20mg Take 20 mg by mouth. [facility] losartan potassium (LOSARTAN ORAL) 05-17 09:24: 36 Yes 20mg Take 20 mg by mouth. [facility] losartan potassium (LOSARTAN ORAL) 05-17 09:24: 36 Yes 20mg Take 20 mg by mouth. [facility] losartan potassium (LOSARTAN ORAL) 05-17 09:24: 36 Yes 20mg Take 20 mg by mouth. [facility] losartan potassium (LOSARTAN ORAL) 05-17 09:24: 36 Yes 20mg Take 20 mg by mouth. [facility] losartan potassium (LOSARTAN ORAL) 05-17 09:24: 36 Yes 20mg Take 20 mg by mouth. [facility] losartan potassium (LOSARTAN ORAL) 05-17 09:24: 36 Yes 20mg Take 20 mg by mouth. [facility] losartan potassium (LOSARTAN ORAL) 05-17 09:24: 36 Yes 20mg Take 20 mg by mouth. [facility] losartan potassium (LOSARTAN ORAL) 05-17 09:24: 36 Yes 20mg Take 20 mg by mouth. [facility] losartan potassium (LOSARTAN ORAL) 05-17 09:24: 36 Yes 20mg Take 20 mg by mouth. [facility] losartan potassium (LOSARTAN ORAL) 05-17 09:24: 36 Yes 20mg Take 20 mg by mouth. [facility] losartan potassium (LOSARTAN ORAL) 05-17 09:24: 36 Yes 20mg Take 20 mg by mouth. [facility] losartan potassium (LOSARTAN ORAL) 05-17 09:24: 36 Yes 20mg Take 20 mg by mouth. [facility] losartan potassium (LOSARTAN ORAL) 05-17 09:24: 36 Yes 20mg Take 20 mg by mouth. [facility] losartan potassium (LOSARTAN ORAL) 05-17 09:24: 36 Yes 20mg Take 20 mg by mouth. [facility] losartan potassium (LOSARTAN ORAL) 05-17 09:24: 36 Yes 20mg Take 20 mg by mouth. [facility] losartan potassium (LOSARTAN ORAL) 05-17 09:24: 36 Yes 20mg Take 20 mg by mouth. [facility] losartan potassium (LOSARTAN ORAL) 05-17 09:24: 36 Yes 20mg Take 20 mg by mouth. [facility] losartan potassium (LOSARTAN ORAL) 05-17 09:24: 36 Yes 20mg Take 20 mg by mouth. [facility] losartan potassium (LOSARTAN ORAL) 05-17 09:24: 36 Yes 20mg Take 20 mg by mouth. [facility] losartan potassium (LOSARTAN ORAL) 05-17 09:24: 36 Yes 20mg Take 20 mg by mouth. [facility] losartan potassium (LOSARTAN ORAL) 05-17 09:24: 36 Yes 20mg Take 20 mg by mouth. [facility] losartan potassium (LOSARTAN ORAL) 05-17 09:24: 36 Yes 20mg Take 20 mg by mouth. [facility] losartan potassium (LOSARTAN ORAL) 05-17 09:24: 36 Yes 20mg Take 20 mg by mouth. [facility] losartan potassium (LOSARTAN ORAL) 05-17 09:24: 36 Yes 20mg Take 20 mg by mouth. [facility] losartan potassium (LOSARTAN ORAL) 05-17 09:24: 36 Yes 20mg Take 20 mg by mouth. [facility] losartan potassium (LOSARTAN ORAL) 05-17 09:24: 36 Yes 20mg Take 20 mg by mouth. [facility] losartan potassium (LOSARTAN ORAL) 05-17 09:24: 36 Yes 20mg Take 20 mg by mouth. [facility] losartan potassium (LOSARTAN ORAL) 05-17 09:24: 36 Yes 20mg Take 20 mg by mouth. [facility] losartan potassium (LOSARTAN ORAL) 05 09:24: 36 Yes 20mg Take 20 mg by mouth. [facility] losartan potassium (LOSARTAN ORAL) 05-17 09:24: 36 Yes 20mg Take 20 mg by mouth. [facility] losartan potassium (LOSARTAN ORAL) 05-17 09:24: 36 Yes 20mg Take 20 mg by mouth. [facility] losartan potassium (LOSARTAN ORAL) 05-17 09:24: 36 Yes 20mg Take 20 mg by mouth. [facility] losartan potassium (LOSARTAN ORAL) 05-17 09:24: 36 Yes 20mg Take 20 mg by mouth. [facility] losartan potassium (LOSARTAN ORAL) 05-17 09:24: 36 Yes 20mg Take 20 mg by mouth. [facility] losartan potassium (LOSARTAN ORAL) 05-17 09:24: 36 Yes 20mg Take 20 mg by mouth. [facility] gabapentin 300 mg capsule 05-17 00:00: 00 Yes [id number] 300mg Take 1 capsule by mouth 3 (three) times daily. [facility] rizatriptan 5 mg disintegrat ing tablet 05-17 00:00: 00 Yes [id number] 5mg Take 1 tablet by mouth as needed for Migraine (Take 5mg at the beginning of the headache can repeat 2h after if headaches persists). May repeat in 2 hours if needed [facility] magnesium gluconate 200 mg tablet 05-17 00:00: 00 Yes [id number] 400mg Take 2 tablets by mouth 2 (two) times daily. [facility] gabapentin 300 mg capsule 05-17 00:00: 00 Yes [id number] 300mg Take 1 capsule by mouth 3 (three) times daily. [facility] rizatriptan 5 mg disintegrat ing tablet 05-17 00:00: 00 Yes [id number] 5mg Take 1 tablet by mouth as needed for Migraine (Take 5mg at the beginning of the headache can repeat 2h after if headaches persists). May repeat in 2 hours if needed [facility] magnesium gluconate 200 mg tablet 2022-0 4-05 00:00: 00 Yes [id number] 400mg Take 2 tablets by mouth 2 (two) times daily. [facility] gabapentin 300 mg capsule 2-0 4-05 00:00: 00 Yes [id number] 300mg Take 1 capsule by mouth 3 (three) times daily. [facility] rizatriptan 5 mg disintegrat ing tablet 2-0 4-05 00:00: 00 Yes [id number] 5mg Take 1 tablet by mouth as needed for Migraine (Take 5mg at the beginning of the headache can repeat 2h after if headaches persists). May repeat in 2 hours if needed [facility] magnesium gluconate 200 mg tablet 2-0 4-05 00:00: 00 Yes [id number] 400mg Take 2 tablets by mouth 2 (two) times daily. [facility] gabapentin 300 mg capsule 2-0 4-05 00:00: 00 Yes [id number] 300mg Take 1 capsule by mouth 3 (three) times daily. [facility] rizatriptan 5 mg disintegrat ing tablet 2-0 4-05 00:00: 00 Yes [id number] 5mg Take 1 tablet by mouth as needed for Migraine (Take 5mg at the beginning of the headache can repeat 2h after if headaches persists). May repeat in 2 hours if needed [facility] magnesium gluconate 200 mg tablet 2-0 4-05 00:00: 00 Yes [id number] 400mg Take 2 tablets by mouth 2 (two) times daily. [facility] gabapentin 300 mg capsule 2-0 4-05 00:00: 00 Yes [id number] 300mg Take 1 capsule by mouth 3 (three) times daily. [facility] rizatriptan 5 mg disintegrat ing tablet 2-0 4-05 00:00: 00 Yes [id number] 5mg Take 1 tablet by mouth as needed for Migraine (Take 5mg at the beginning of the headache can repeat 2h after if headaches persists). May repeat in 2 hours if needed [facility] magnesium gluconate 200 mg tablet 2-0 4-05 00:00: 00 Yes [id number] 400mg Take 2 tablets by mouth 2 (two) times daily. [facility] gabapentin 300 mg capsule 2021-0 -05 00:00: 00 Yes [id number] 300mg Take 1 capsule by mouth 3 (three) times daily. [facility] rizatriptan 5 mg disintegrat ing tablet 2021-0 -05 00:00: 00 Yes [id number] 5mg Take 1 tablet by mouth as needed for Migraine (Take 5mg at the beginning of the headache can repeat 2h after if headaches persists). May repeat in 2 hours if needed [facility] magnesium gluconate 200 mg tablet 2021-0 -05 00:00: 00 Yes [id number] 400mg Take 2 tablets by mouth 2 (two) times daily. [facility] gabapentin 300 mg capsule 2021-0 05 00:00: 00 Yes [id number] 300mg Take 1 capsule by mouth 3 (three) times daily. [facility] rizatriptan 5 mg disintegrat ing tablet 2021-0 05 00:00: 00 Yes [id number] 5mg Take 1 tablet by mouth as needed for Migraine (Take 5mg at the beginning of the headache can repeat 2h after if headaches persists). May repeat in 2 hours if needed [facility] magnesium gluconate 200 mg tablet 2021-0 05 00:00: 00 Yes [id number] 400mg Take 2 tablets by mouth 2 (two) times daily. [facility] gabapentin 300 mg capsule 2021-0 05 00:00: 00 Yes [id number] 300mg Take 1 capsule by mouth 3 (three) times daily. [facility] rizatriptan 5 mg disintegrat ing tablet 2021-0 05 00:00: 00 Yes [id number] 5mg Take 1 tablet by mouth as needed for Migraine (Take 5mg at the beginning of the headache can repeat 2h after if headaches persists). May repeat in 2 hours if needed [facility] magnesium gluconate 200 mg tablet 2021-0 -05 00:00: 00 Yes [id number] 400mg Take 2 tablets by mouth 2 (two) times daily. [facility] gabapentin 300 mg capsule 2021-0 -05 00:00: 00 Yes [id number] 300mg Take 1 capsule by mouth 3 (three) times daily. [facility] rizatriptan 5 mg disintegrat ing tablet 2-0 4-05 00:00: 00 Yes [id number] 5mg Take 1 tablet by mouth as needed for Migraine (Take 5mg at the beginning of the headache can repeat 2h after if headaches persists). May repeat in 2 hours if needed [facility] magnesium gluconate 200 mg tablet 2-0 4-05 00:00: 00 Yes [id number] 400mg Take 2 tablets by mouth 2 (two) times daily. [facility] gabapentin 300 mg capsule 2021-0 4-05 00:00: 00 Yes [id number] 300mg Take 1 capsule by mouth 3 (three) times daily. [facility] rizatriptan 5 mg disintegrat ing tablet 2021-0 -05 00:00: 00 Yes [id number] 5mg Take 1 tablet by mouth as needed for Migraine (Take 5mg at the beginning of the headache can repeat 2h after if headaches persists). May repeat in 2 hours if needed [facility] magnesium gluconate 200 mg tablet 2-0 4-05 00:00: 00 Yes [id number] 400mg Take 2 tablets by mouth 2 (two) times daily. [facility] gabapentin 300 mg capsule 2021-0 -05 00:00: 00 Yes [id number] 300mg Take 1 capsule by mouth 3 (three) times daily. [facility] rizatriptan 5 mg disintegrat ing tablet 2-0 4-05 00:00: 00 Yes [id number] 5mg Take 1 tablet by mouth as needed for Migraine (Take 5mg at the beginning of the headache can repeat 2h after if headaches persists). May repeat in 2 hours if needed [facility] magnesium gluconate 200 mg tablet 2-0 4-05 00:00: 00 Yes [id number] 400mg Take 2 tablets by mouth 2 (two) times daily. [facility] gabapentin 300 mg capsule 2-0 4-05 00:00: 00 Yes [id number] 300mg Take 1 capsule by mouth 3 (three) times daily. [facility] rizatriptan 5 mg disintegrat ing tablet 2-0 4-05 00:00: 00 Yes [id number] 5mg Take 1 tablet by mouth as needed for Migraine (Take 5mg at the beginning of the headache can repeat 2h after if headaches persists). May repeat in 2 hours if needed [facility] magnesium gluconate 200 mg tablet 2-0 4-05 00:00: 00 Yes [id number] 400mg Take 2 tablets by mouth 2 (two) times daily. [facility] gabapentin 300 mg capsule 2-0 4-05 00:00: 00 Yes [id number] 300mg Take 1 capsule by mouth 3 (three) times daily. [facility] rizatriptan 5 mg disintegrat ing tablet 2-0 4-05 00:00: 00 Yes [id number] 5mg Take 1 tablet by mouth as needed for Migraine (Take 5mg at the beginning of the headache can repeat 2h after if headaches persists). May repeat in 2 hours if needed [facility] magnesium gluconate 200 mg tablet 2-0 -05 00:00: 00 Yes [id number] 400mg Take 2 tablets by mouth 2 (two) times daily. [facility] gabapentin 300 mg capsule 2-0 4-05 00:00: 00 Yes [id number] 300mg Take 1 capsule by mouth 3 (three) times daily. [facility] rizatriptan 5 mg disintegrat ing tablet 2-0 4-05 00:00: 00 Yes [id number] 5mg Take 1 tablet by mouth as needed for Migraine (Take 5mg at the beginning of the headache can repeat 2h after if headaches persists). May repeat in 2 hours if needed [facility] magnesium gluconate 200 mg tablet 2-0 4-05 00:00: 00 Yes [id number] 400mg Take 2 tablets by mouth 2 (two) times daily. [facility] gabapentin 300 mg capsule 2-0 4-05 00:00: 00 Yes [id number] 300mg Take 1 capsule by mouth 3 (three) times daily. [facility] rizatriptan 5 mg disintegrat ing tablet 2-0 4-05 00:00: 00 Yes [id number] 5mg Take 1 tablet by mouth as needed for Migraine (Take 5mg at the beginning of the headache can repeat 2h after if headaches persists). May repeat in 2 hours if needed [facility] mg tablet 2021-0 4-05 00:00: 00 Yes [id number] 400mg Take 2 tablets by mouth 2 (two) times daily. [facility] gabapentin 300 mg capsule 2021-0 4-05 00:00: 00 Yes [id number] 300mg Take 1 capsule by mouth 3 (three) times daily. [facility] rizatriptan 5 mg disintegrat ing tablet 2021-0 4-05 00:00: 00 Yes [id number] 5mg Take 1 tablet by mouth as needed for Migraine (Take 5mg at the beginning of the headache can repeat 2h after if headaches persists). May repeat in 2 hours if needed [facility] magnesium gluconate 200 mg tablet 2-0 4-05 00:00: 00 Yes [id number] 400mg Take 2 tablets by mouth 2 (two) times daily. [facility] gabapentin 300 mg capsule 2021-0 -05 00:00: 00 Yes [id number] 300mg Take 1 capsule by mouth 3 (three) times daily. [facility] rizatriptan 5 mg disintegrat ing tablet 2021-0 -05 00:00: 00 Yes [id number] 5mg Take 1 tablet by mouth as needed for Migraine (Take 5mg at the beginning of the headache can repeat 2h after if headaches persists). May repeat in 2 hours if needed [facility] magnesium gluconate 200 mg tablet 2021-0 -05 00:00: 00 Yes [id number] 400mg Take 2 tablets by mouth 2 (two) times daily. [facility] gabapentin 300 mg capsule 2-0 4-05 00:00: 00 Yes [id number] 300mg Take 1 capsule by mouth 3 (three) times daily. [facility] rizatriptan 5 mg disintegrat ing tablet 2021-0 4-05 00:00: 00 Yes [id number] 5mg Take 1 tablet by mouth as needed for Migraine (Take 5mg at the beginning of the headache can repeat 2h after if headaches persists). May repeat in 2 hours if needed [facility] magnesium gluconate 200 mg tablet 2-0 4-05 00:00: 00 Yes [id number] 400mg Take 2 tablets by mouth 2 (two) times daily. [facility] gabapentin 300 mg capsule 2021-0 4-05 00:00: 00 Yes [id number] 300mg Take 1 capsule by mouth 3 (three) times daily. [facility] rizatriptan 5 mg disintegrat ing tablet 2021-0 4-05 00:00: 00 Yes [id number] 5mg Take 1 tablet by mouth as needed for Migraine (Take 5mg at the beginning of the headache can repeat 2h after if headaches persists). May repeat in 2 hours if needed [facility] magnesium gluconate 200 mg tablet 2021-0 -05 00:00: 00 Yes [id number] 400mg Take 2 tablets by mouth 2 (two) times daily. [facility] gabapentin 300 mg capsule 2021-0 4-05 00:00: 00 Yes [id number] 300mg Take 1 capsule by mouth 3 (three) times daily. [facility] rizatriptan 5 mg disintegrat ing tablet 2021-0 -05 00:00: 00 Yes [id number] 5mg Take 1 tablet by mouth as needed for Migraine (Take 5mg at the beginning of the headache can repeat 2h after if headaches persists). May repeat in 2 hours if needed [facility] magnesium gluconate 200 mg tablet 2021-0 4-05 00:00: 00 Yes [id number] 400mg Take 2 tablets by mouth 2 (two) times daily. [facility] gabapentin 300 mg capsule 2021-0 4-05 00:00: 00 Yes [id number] 300mg Take 1 capsule by mouth 3 (three) times daily. [facility] rizatriptan 5 mg disintegrat ing tablet 2-0 4-05 00:00: 00 Yes [id number] 5mg Take 1 tablet by mouth as needed for Migraine (Take 5mg at the beginning of the headache can repeat 2h after if headaches persists). May repeat in 2 hours if needed [facility] magnesium gluconate 200 mg tablet 2-0 4-05 00:00: 00 Yes [id number] 400mg Take 2 tablets by mouth 2 (two) times daily. [facility] gabapentin 300 mg capsule 2-0 4-05 00:00: 00 Yes [id number] 300mg Take 1 capsule by mouth 3 (three) times daily. [facility] rizatriptan 5 mg disintegrat ing tablet 2-0 4-05 00:00: 00 Yes [id number] 5mg Take 1 tablet by mouth as needed for Migraine (Take 5mg at the beginning of the headache can repeat 2h after if headaches persists). May repeat in 2 hours if needed [facility] magnesium gluconate 200 mg tablet 2-0 4-05 00:00: 00 Yes [id number] 400mg Take 2 tablets by mouth 2 (two) times daily. [facility] gabapentin 300 mg capsule 2021-0 4-05 00:00: 00 Yes [id number] 300mg Take 1 capsule by mouth 3 (three) times daily. [facility] rizatriptan 5 mg disintegrat ing tablet 2-0 4-05 00:00: 00 Yes [id number] 5mg Take 1 tablet by mouth as needed for Migraine (Take 5mg at the beginning of the headache can repeat 2h after if headaches persists). May repeat in 2 hours if needed [facility] magnesium gluconate 200 mg tablet 2-0 4-05 00:00: 00 Yes [id number] 400mg Take 2 tablets by mouth 2 (two) times daily. [facility] gabapentin 300 mg capsule 2-0 4-05 00:00: 00 Yes [id number] 300mg Take 1 capsule by mouth 3 (three) times daily. [facility] rizatriptan 5 mg disintegrat ing tablet 2-0 4-05 00:00: 00 Yes [id number] 5mg Take 1 tablet by mouth as needed for Migraine (Take 5mg at the beginning of the headache can repeat 2h after if headaches persists). May repeat in 2 hours if needed [facility] magnesium gluconate 200 mg tablet 2-0 4-05 00:00: 00 Yes [id number] 400mg Take 2 tablets by mouth 2 (two) times daily. [facility] gabapentin 300 mg capsule 2-0 4-05 00:00: 00 Yes [id number] 300mg Take 1 capsule by mouth 3 (three) times daily. [facility] rizatriptan 5 mg disintegrat ing tablet 2021-0 4-05 00:00: 00 Yes [id number] 5mg Take 1 tablet by mouth as needed for Migraine (Take 5mg at the beginning of the headache can repeat 2h after if headaches persists). May repeat in 2 hours if needed [facility] magnesium gluconate 200 mg tablet 2021-0 -05 00:00: 00 Yes [id number] 400mg Take 2 tablets by mouth 2 (two) times daily. [facility] gabapentin 300 mg capsule 2021-0 -05 00:00: 00 Yes [id number] 300mg Take 1 capsule by mouth 3 (three) times daily. [facility] rizatriptan 5 mg disintegrat ing tablet 2021-0 -05 00:00: 00 Yes [id number] 5mg Take 1 tablet by mouth as needed for Migraine (Take 5mg at the beginning of the headache can repeat 2h after if headaches persists). May repeat in 2 hours if needed [facility] magnesium gluconate 200 mg tablet 2021-0 -05 00:00: 00 Yes [id number] 400mg Take 2 tablets by mouth 2 (two) times daily. [facility] gabapentin 300 mg capsule 2021-0 05 00:00: 00 Yes [id number] 300mg Take 1 capsule by mouth 3 (three) times daily. [facility] rizatriptan 5 mg disintegrat ing tablet 2021-0 -05 00:00: 00 Yes [id number] 5mg Take 1 tablet by mouth as needed for Migraine (Take 5mg at the beginning of the headache can repeat 2h after if headaches persists). May repeat in 2 hours if needed [facility] magnesium gluconate 200 mg tablet 2-0 -05 00:00: 00 Yes [id number] 400mg Take 2 tablets by mouth 2 (two) times daily. [facility] gabapentin 300 mg capsule 2-0 4-05 00:00: 00 Yes [id number] 300mg Take 1 capsule by mouth 3 (three) times daily. [facility] rizatriptan 5 mg disintegrat ing tablet 2-0 405 00:00: 00 Yes [id number] 5mg Take 1 tablet by mouth as needed for Migraine (Take 5mg at the beginning of the headache can repeat 2h after if headaches persists). May repeat in 2 hours if needed [facility] glucon[facility] mg tablet 2021-0 4-05 00:00: 00 Yes [id number] 400mg Take 2 tablets by mouth 2 (two) times daily. [facility] gabapentin 300 mg capsule 2021-0 -05 00:00: 00 Yes [id number] 300mg Take 1 capsule by mouth 3 (three) times daily. [facility] rizatriptan 5 mg disintegrat ing tablet 2021-0 05 00:00: 00 Yes [id number] 5mg Take 1 tablet by mouth as needed for Migraine (Take 5mg at the beginning of the headache can repeat 2h after if headaches persists). May repeat in 2 hours if needed [facility] magnesium gluconate 200 mg tablet 2021-0 -05 00:00: 00 Yes [id number] 400mg Take 2 tablets by mouth 2 (two) times daily. [facility] gabapentin 300 mg capsule 2021-0 -05 00:00: 00 Yes [id number] 300mg Take 1 capsule by mouth 3 (three) times daily. [facility] rizatriptan 5 mg disintegrat ing tablet 2021-0 -05 00:00: 00 Yes [id number] 5mg Take 1 tablet by mouth as needed for Migraine (Take 5mg at the beginning of the headache can repeat 2h after if headaches persists). May repeat in 2 hours if needed [facility] magnesium gluconate 200 mg tablet 2021-0 4-05 00:00: 00 Yes [id number] 400mg Take 2 tablets by mouth 2 (two) times daily. [facility] gabapentin 300 mg capsule 2021-0 4-05 00:00: 00 Yes [id number] 300mg Take 1 capsule by mouth 3 (three) times daily. [facility] rizatriptan 5 mg disintegrat ing tablet 2-0 4-05 00:00: 00 Yes [id number] 5mg Take 1 tablet by mouth as needed for Migraine (Take 5mg at the beginning of the headache can repeat 2h after if headaches persists). May repeat in 2 hours if needed [facility] magnesium gluconate 200 mg tablet 2-0 4-05 00:00: 00 Yes [id number] 400mg Take 2 tablets by mouth 2 (two) times daily. [facility] gabapentin 300 mg capsule 2-0 4-05 00:00: 00 Yes [id number] 300mg Take 1 capsule by mouth 3 (three) times daily. [facility] rizatriptan 5 mg disintegrat ing tablet 2-0 4-05 00:00: 00 Yes [id number] 5mg Take 1 tablet by mouth as needed for Migraine (Take 5mg at the beginning of the headache can repeat 2h after if headaches persists). May repeat in 2 hours if needed [facility] magnesium gluconate 200 mg tablet 2-0 4-05 00:00: 00 Yes [id number] 400mg Take 2 tablets by mouth 2 (two) times daily. [facility] gabapentin 300 mg capsule 2021-0 4-05 00:00: 00 Yes [id number] 300mg Take 1 capsule by mouth 3 (three) times daily. [facility] rizatriptan 5 mg disintegrat ing tablet 2021-0 4-05 00:00: 00 Yes [id number] 5mg Take 1 tablet by mouth as needed for Migraine (Take 5mg at the beginning of the headache can repeat 2h after if headaches persists). May repeat in 2 hours if needed [facility] magnesium gluconate 200 mg tablet 2-0 4-05 00:00: 00 Yes [id number] 400mg Take 2 tablets by mouth 2 (two) times daily. [facility] gabapentin 300 mg capsule 2-0 4-05 00:00: 00 Yes [id number] 300mg Take 1 capsule by mouth 3 (three) times daily. [facility] rizatriptan 5 mg disintegrat ing tablet 2-0 4-05 00:00: 00 Yes [id number] 5mg Take 1 tablet by mouth as needed for Migraine (Take 5mg at the beginning of the headache can repeat 2h after if headaches persists). May repeat in 2 hours if needed [facility] magnesium gluconate 200 mg tablet 2-0 4-05 00:00: 00 Yes [id number] 400mg Take 2 tablets by mouth 2 (two) times daily. [facility] gabapentin 300 mg capsule 2021-0 4-05 00:00: 00 Yes [id number] 300mg Take 1 capsule by mouth 3 (three) times daily. [facility] rizatriptan 5 mg disintegrat ing tablet 2021-0 -05 00:00: 00 Yes [id number] 5mg Take 1 tablet by mouth as needed for Migraine (Take 5mg at the beginning of the headache can repeat 2h after if headaches persists). May repeat in 2 hours if needed [facility] magnesium gluconate 200 mg tablet 2021-0 -05 00:00: 00 Yes [id number] 400mg Take 2 tablets by mouth 2 (two) times daily. [facility] gabapentin 300 mg capsule 2021-0 -05 00:00: 00 Yes [id number] 300mg Take 1 capsule by mouth 3 (three) times daily. [facility] rizatriptan 5 mg disintegrat ing tablet 2021-0 05 00:00: 00 Yes [id number] 5mg Take 1 tablet by mouth as needed for Migraine (Take 5mg at the beginning of the headache can repeat 2h after if headaches persists). May repeat in 2 hours if needed [facility] magnesium gluconate 200 mg tablet 2-0 -05 00:00: 00 Yes [id number] 400mg Take 2 tablets by mouth 2 (two) times daily. [facility] gabapentin 300 mg capsule 2-0 4-05 00:00: 00 Yes [id number] 300mg Take 1 capsule by mouth 3 (three) times daily. [facility] rizatriptan 5 mg disintegrat ing tablet 2-0 4-05 00:00: 00 Yes [id number] 5mg Take 1 tablet by mouth as needed for Migraine (Take 5mg at the beginning of the headache can repeat 2h after if headaches persists). May repeat in 2 hours if needed [facility] magnesium gluconate 200 mg tablet 2-0 4-05 00:00: 00 Yes [id number] 400mg Take 2 tablets by mouth 2 (two) times daily. [facility] gabapentin 300 mg capsule 2021-0 4-05 00:00: 00 Yes [id number] 300mg Take 1 capsule by mouth 3 (three) times daily. [facility] rizatriptan 5 mg disintegrat ing tablet 2021-0 4-05 00:00: 00 Yes [id number] 5mg Take 1 tablet by mouth as needed for Migraine (Take 5mg at the beginning of the headache can repeat 2h after if headaches persists). May repeat in 2 hours if needed [facility] magnesium gluconate 200 mg tablet 2021-0 4-05 00:00: 00 Yes [id number] 400mg Take 2 tablets by mouth 2 (two) times daily. [facility] gabapentin 300 mg capsule 2021-0 -05 00:00: 00 Yes [id number] 300mg Take 1 capsule by mouth 3 (three) times daily. [facility] rizatriptan 5 mg disintegrat ing tablet 2021-0 4-05 00:00: 00 Yes [id number] 5mg Take 1 tablet by mouth as needed for Migraine (Take 5mg at the beginning of the headache can repeat 2h after if headaches persists). May repeat in 2 hours if needed [facility] magnesium gluconate 200 mg tablet 2021-0 4-05 00:00: 00 Yes [id number] 400mg Take 2 tablets by mouth 2 (two) times daily. [facility] gabapentin 300 mg capsule 2021-0 4-05 00:00: 00 Yes [id number] 300mg Take 1 capsule by mouth 3 (three) times daily. [facility] rizatriptan 5 mg disintegrat ing tablet 2021-0 4-05 00:00: 00 Yes [id number] 5mg Take 1 tablet by mouth as needed for Migraine (Take 5mg at the beginning of the headache can repeat 2h after if headaches persists). May repeat in 2 hours if needed [facility] magnesium gluconate 200 mg tablet 2021-0 4-05 00:00: 00 Yes [id number] 400mg Take 2 tablets by mouth 2 (two) times daily. [facility] gabapentin 300 mg capsule 2022-0 4-05 00:00: 00 Yes [id number] 300mg Take 1 capsule by mouth 3 (three) times daily. [facility] rizatriptan 5 mg disintegrat ing tablet 2021-0 05 00:00: 00 Yes [id number] 5mg Take 1 tablet by mouth as needed for Migraine (Take 5mg at the beginning of the headache can repeat 2h after if headaches persists). May repeat in 2 hours if needed [facility] magnesium gluconate 200 mg tablet 2021-0 -05 00:00: 00 Yes [id number] 400mg Take 2 tablets by mouth 2 (two) times daily. [facility] gabapentin 300 mg capsule 2021-0 05 00:00: 00 Yes [id number] 300mg Take 1 capsule by mouth 3 (three) times daily. [facility] rizatriptan 5 mg disintegrat ing tablet 2021-0 05 00:00: 00 Yes [id number] 5mg Take 1 tablet by mouth as needed for Migraine (Take 5mg at the beginning of the headache can repeat 2h after if headaches persists). May repeat in 2 hours if needed [facility] magnesium gluconate 200 mg tablet 2-0 05 00:00: 00 Yes [id number] 400mg Take 2 tablets by mouth 2 (two) times daily. [facility] gabapentin 300 mg capsule 2021-0 05 00:00: 00 Yes [id number] 300mg Take 1 capsule by mouth 3 (three) times daily. [facility] rizatriptan 5 mg disintegrat ing tablet 2021-0 -05 00:00: 00 Yes [id number] 5mg Take 1 tablet by mouth as needed for Migraine (Take 5mg at the beginning of the headache can repeat 2h after if headaches persists). May repeat in 2 hours if needed [facility] magnesium gluconate 200 mg tablet 2-0 4-05 00:00: 00 Yes [id number] 400mg Take 2 tablets by mouth 2 (two) times daily. [facility] gabapentin 300 mg capsule 2-0 4-05 00:00: 00 Yes [id number] 300mg Take 1 capsule by mouth 3 (three) times daily. [facility] rizatriptan 5 mg disintegrat ing tablet 2-0 4-05 00:00: 00 Yes [id number] 5mg Take 1 tablet by mouth as needed for Migraine (Take 5mg at the beginning of the headache can repeat 2h after if headaches persists). May repeat in 2 hours if needed [facility] magnesium gluconate 200 mg tablet 2-0 4-05 00:00: 00 Yes [id number] 400mg Take 2 tablets by mouth 2 (two) times daily. [facility] gabapentin 300 mg capsule 2-0 -05 00:00: 00 Yes [id number] 300mg Take 1 capsule by mouth 3 (three) times daily. [facility] rizatriptan 5 mg disintegrat ing tablet 2021-0 -05 00:00: 00 Yes [id number] 5mg Take 1 tablet by mouth as needed for Migraine (Take 5mg at the beginning of the headache can repeat 2h after if headaches persists). May repeat in 2 hours if needed [facility] magnesium gluconate 200 mg tablet 2-0 -05 00:00: 00 Yes [id number] 400mg Take 2 tablets by mouth 2 (two) times daily. [facility] gabapentin 300 mg capsule 2021-0 -05 00:00: 00 Yes [id number] 300mg Take 1 capsule by mouth 3 (three) times daily. [facility] rizatriptan 5 mg disintegrat ing tablet 2-0 -05 00:00: 00 Yes [id number] 5mg Take 1 tablet by mouth as needed for Migraine (Take 5mg at the beginning of the headache can repeat 2h after if headaches persists). May repeat in 2 hours if needed [facility] magnesium gluconate 200 mg tablet 2-0 4-05 00:00: 00 Yes [id number] 400mg Take 2 tablets by mouth 2 (two) times daily. [facility] gabapentin 300 mg capsule 2-0 4-05 00:00: 00 Yes [id number] 300mg Take 1 capsule by mouth 3 (three) times daily. [facility] rizatriptan 5 mg disintegrat ing tablet 2-0 4-05 00:00: 00 Yes [id number] 5mg Take 1 tablet by mouth as needed for Migraine (Take 5mg at the beginning of the headache can repeat 2h after if headaches persists). May repeat in 2 hours if needed [facility] 2021-0 4-05 00:00: 00 Yes [id number] 400mg Take 2 tablets by mouth 2 (two) times daily. [facility] gabapentin 300 mg capsule 2021-0 4-05 00:00: 00 Yes [id number] 300mg Take 1 capsule by mouth 3 (three) times daily. [facility] rizatriptan 5 mg disintegrat ing tablet 2-0 -05 00:00: 00 Yes [id number] 5mg Take 1 tablet by mouth as needed for Migraine (Take 5mg at the beginning of the headache can repeat 2h after if headaches persists). May repeat in 2 hours if needed [facility] magnesium gluconate 200 mg tablet 2021-0 -05 00:00: 00 Yes [id number] 400mg Take 2 tablets by mouth 2 (two) times daily. [facility] gabapentin 300 mg capsule 2021-0 -05 00:00: 00 Yes [id number] 300mg Take 1 capsule by mouth 3 (three) times daily. [facility] rizatriptan 5 mg disintegrat ing tablet 2021-0 05 00:00: 00 Yes [id number] 5mg Take 1 tablet by mouth as needed for Migraine (Take 5mg at the beginning of the headache can repeat 2h after if headaches persists). May repeat in 2 hours if needed [facility] magnesium gluconate 200 mg tablet 2021-0 -05 00:00: 00 Yes [id number] 400mg Take 2 tablets by mouth 2 (two) times daily. [facility] gabapentin 300 mg capsule 2-0 4-05 00:00: 00 Yes [id number] 300mg Take 1 capsule by mouth 3 (three) times daily. [facility] rizatriptan 5 mg disintegrat ing tablet 2-0 4-05 00:00: 00 Yes [id number] 5mg Take 1 tablet by mouth as needed for Migraine (Take 5mg at the beginning of the headache can repeat 2h after if headaches persists). May repeat in 2 hours if needed [facility] magnesium gluconate 200 mg tablet 2-0 4-05 00:00: 00 Yes [id number] 400mg Take 2 tablets by mouth 2 (two) times daily. [facility] gabapentin 300 mg capsule 2021-0 4-05 00:00: 00 Yes [id number] 300mg Take 1 capsule by mouth 3 (three) times daily. [facility] rizatriptan 5 mg disintegrat ing tablet 2021-0 4-05 00:00: 00 Yes [id number] 5mg Take 1 tablet by mouth as needed for Migraine (Take 5mg at the beginning of the headache can repeat 2h after if headaches persists). May repeat in 2 hours if needed [facility] magnesium gluconate 200 mg tablet 2021-0 -05 00:00: 00 Yes [id number] 400mg Take 2 tablets by mouth 2 (two) times daily. [facility] gabapentin 300 mg capsule 2021-0 -05 00:00: 00 Yes [id number] 300mg Take 1 capsule by mouth 3 (three) times daily. [facility] rizatriptan 5 mg disintegrat ing tablet 2021-0 405 00:00: 00 Yes [id number] 5mg Take 1 tablet by mouth as needed for Migraine (Take 5mg at the beginning of the headache can repeat 2h after if headaches persists). May repeat in 2 hours if needed [facility] magnesium gluconate 200 mg tablet 2021-0 4-05 00:00: 00 Yes [id number] 400mg Take 2 tablets by mouth 2 (two) times daily. [facility] gabapentin 300 mg capsule 2-0 4-05 00:00: 00 Yes [id number] 300mg Take 1 capsule by mouth 3 (three) times daily. [facility] rizatriptan 5 mg disintegrat ing tablet 2021-0 4-05 00:00: 00 Yes [id number] 5mg Take 1 tablet by mouth as needed for Migraine (Take 5mg at the beginning of the headache can repeat 2h after if headaches persists). May repeat in 2 hours if needed [facility] magnesium gluconate 200 mg tablet 2022-0 4-05 00:00: 00 Yes [id number] 400mg Take 2 tablets by mouth 2 (two) times daily. [facility] gabapentin 300 mg capsule 2021-0 4-05 00:00: 00 Yes [id number] 300mg Take 1 capsule by mouth 3 (three) times daily. [facility] rizatriptan 5 mg disintegrat ing tablet 2-0 4-05 00:00: 00 Yes [id number] 5mg Take 1 tablet by mouth as needed for Migraine (Take 5mg at the beginning of the headache can repeat 2h after if headaches persists). May repeat in 2 hours if needed [facility] magnesium gluconate 200 mg tablet 2-0 4-05 00:00: 00 Yes [id number] 400mg Take 2 tablets by mouth 2 (two) times daily. [facility] gabapentin 300 mg capsule 2021-0 4-05 00:00: 00 Yes [id number] 300mg Take 1 capsule by mouth 3 (three) times daily. [facility] rizatriptan 5 mg disintegrat ing tablet 2-0 4-05 00:00: 00 Yes [id number] 5mg Take 1 tablet by mouth as needed for Migraine (Take 5mg at the beginning of the headache can repeat 2h after if headaches persists). May repeat in 2 hours if needed [facility] magnesium gluconate 200 mg tablet 2-0 4-05 00:00: 00 Yes [id number] 400mg Take 2 tablets by mouth 2 (two) times daily. [facility] gabapentin 300 mg capsule 2-0 4-05 00:00: 00 Yes [id number] 300mg Take 1 capsule by mouth 3 (three) times daily. [facility] rizatriptan 5 mg disintegrat ing tablet 2-0 4-05 00:00: 00 Yes [id number] 5mg Take 1 tablet by mouth as needed for Migraine (Take 5mg at the beginning of the headache can repeat 2h after if headaches persists). May repeat in 2 hours if needed [facility] magnesium gluconate 200 mg tablet 2-0 4-05 00:00: 00 Yes [id number] 400mg Take 2 tablets by mouth 2 (two) times daily. [facility] gabapentin 300 mg capsule 2-0 4-05 00:00: 00 Yes [id number] 300mg Take 1 capsule by mouth 3 (three) times daily. [facility] rizatriptan 5 mg disintegrat ing tablet 2-0 4-05 00:00: 00 Yes [id number] 5mg Take 1 tablet by mouth as needed for Migraine (Take 5mg at the beginning of the headache can repeat 2h after if headaches persists). May repeat in 2 hours if needed [facility] magnesium gluconate 200 mg tablet 2-0 4-05 00:00: 00 Yes [id number] 400mg Take 2 tablets by mouth 2 (two) times daily. [facility] gabapentin 300 mg capsule 2-0 4-05 00:00: 00 Yes [id number] 300mg Take 1 capsule by mouth 3 (three) times daily. [facility] rizatriptan 5 mg disintegrat ing tablet 2-0 4-05 00:00: 00 Yes [id number] 5mg Take 1 tablet by mouth as needed for Migraine (Take 5mg at the beginning of the headache can repeat 2h after if headaches persists). May repeat in 2 hours if needed [facility] magnesium gluconate 200 mg tablet 2-0 4-05 00:00: 00 Yes [id number] 400mg Take 2 tablets by mouth 2 (two) times daily. [facility] gabapentin 300 mg capsule 2-0 4-05 00:00: 00 11-03 00:00 :00 No [id number] 300mg Take 1 capsule by mouth 3 (three) times daily. [facility] rizatriptan 5 mg disintegrat ing tablet 2-0 4-05 00:00: 00 11-03 00:00 :00 No [id number] 5mg Take 1 tablet by mouth as needed for Migraine (Take 5mg at the beginning of the headache can repeat 2h after if headaches persists). May repeat in 2 hours if needed [facility] magnesium gluconate 200 mg tablet 2-0 4-05 00:00: 00 11-03 00:00 :00 No [id number] 400mg Take 2 tablets by mouth 2 (two) times daily. [facility] gabapentin 300 mg capsule 2-0 4-05 00:00: 00 11-03 00:00 :00 No [id number] 300mg Take 1 capsule by mouth 3 (three) times daily. [facility] rizatriptan 5 mg disintegrat ing tablet 2-0 4-05 00:00: 00 11-03 00:00 :00 No [id number] 5mg Take 1 tablet by mouth as needed for Migraine (Take 5mg at the beginning of the headache can repeat 2h after if headaches persists). May repeat in 2 hours if needed [facility] magnesium gluconate 200 mg tablet 2-0 4-05 00:00: 00 11-03 00:00 :00 No [id number] 400mg Take 2 tablets by mouth 2 (two) times daily. [facility] gabapentin 300 mg capsule 2-0 4-05 00:00: 00 11-03 00:00 :00 No [id number] 300mg Take 1 capsule by mouth 3 (three) times daily. [facility] rizatriptan 5 mg disintegrat ing tablet 2-0 4-05 00:00: 00 11-03 00:00 :00 No [id number] 5mg Take 1 tablet by mouth as needed for Migraine (Take 5mg at the beginning of the headache can repeat 2h after if headaches persists). May repeat in 2 hours if needed [facility] magnesium gluconate 200 mg tablet 2-0 4-05 00:00: 00 11-03 00:00 :00 No [id number] 400mg Take 2 tablets by mouth 2 (two) times daily. [facility] gabapentin 300 mg capsule 2-0 4-05 00:00: 00 11-03 00:00 :00 No [id number] 300mg Take 1 capsule by mouth 3 (three) times daily. [facility] rizatriptan 5 mg disintegrat ing tablet 2-0 4-05 00:00: 00 11-03 00:00 :00 No [id number] 5mg Take 1 tablet by mouth as needed for Migraine (Take 5mg at the beginning of the headache can repeat 2h after if headaches persists). May repeat in 2 hours if needed [facility] magnesium gluconate 200 mg tablet 2-0 4-05 00:00: 00 11-03 00:00 :00 No [id number] 400mg Take 2 tablets by mouth 2 (two) times daily. [facility] gabapentin 300 mg capsule 2-0 4-05 00:00: 00 11-03 00:00 :00 No [id number] 300mg Take 1 capsule by mouth 3 (three) times daily. [facility] rizatriptan 5 mg disintegrat ing tablet 2-0 4-05 00:00: 00 11-03 00:00 :00 No [id number] 5mg Take 1 tablet by mouth as needed for Migraine (Take 5mg at the beginning of the headache can repeat 2h after if headaches persists). May repeat in 2 hours if needed [facility] magnesium gluconate 200 mg tablet 2-0 4-05 00:00: 00 11-03 00:00 :00 No [id number] 400mg Take 2 tablets by mouth 2 (two) times daily. [facility] gabapentin 300 mg capsule 2-0 4-05 00:00: 00 11-03 00:00 :00 No [id number] 300mg Take 1 capsule by mouth 3 (three) times daily. [facility] rizatriptan 5 mg disintegrat ing tablet 2-0 4-05 00:00: 00 11-03 00:00 :00 No [id number] 5mg Take 1 tablet by mouth as needed for Migraine (Take 5mg at the beginning of the headache can repeat 2h after if headaches persists). May repeat in 2 hours if needed [facility] magnesium gluconate 200 mg tablet 2-0 4-05 00:00: 00 11-03 00:00 :00 No [id number] 400mg Take 2 tablets by mouth 2 (two) times daily. [facility] gabapentin 300 mg capsule 2-0 4-05 00:00: 00 11-03 00:00 :00 No [id number] 300mg Take 1 capsule by mouth 3 (three) times daily. [facility] rizatriptan 5 mg disintegrat ing tablet 2-0 4-05 00:00: 00 11-03 00:00 :00 No [id number] 5mg Take 1 tablet by mouth as needed for Migraine (Take 5mg at the beginning of the headache can repeat 2h after if headaches persists). May repeat in 2 hours if needed [facility] magnesium gluconate 200 mg tablet 2021-0 4-05 00:00: 00 11-03 00:00 :00 No [id number] 400mg Take 2 tablets by mouth 2 (two) times daily. [facility] gabapentin 300 mg capsule 2021-0 4-05 00:00: 00 11-03 00:00 :00 No [id number] 300mg Take 1 capsule by mouth 3 (three) times daily. [facility] rizatriptan 5 mg disintegrat ing tablet 2021-0 4-05 00:00: 00 11-03 00:00 :00 No [id number] 5mg Take 1 tablet by mouth as needed for Migraine (Take 5mg at the beginning of the headache can repeat 2h after if headaches persists). May repeat in 2 hours if needed [facility] magnesium gluconate 200 mg tablet 2021-0 4-05 00:00: 00 11-03 00:00 :00 No [id number] 400mg Take 2 tablets by mouth 2 (two) times daily. [facility] gabapentin 300 mg capsule 2021-0 4-05 00:00: 00 11-03 00:00 :00 No [id number] 300mg Take 1 capsule by mouth 3 (three) times daily. [facility] rizatriptan 5 mg disintegrat ing tablet 2-0 4-05 00:00: 00 11-03 00:00 :00 No [id number] 5mg Take 1 tablet by mouth as needed for Migraine (Take 5mg at the beginning of the headache can repeat 2h after if headaches persists). May repeat in 2 hours if needed [facility] magnesium gluconate 200 mg tablet 2-0 4-05 00:00: 00 11-03 00:00 :00 No [id number] 400mg Take 2 tablets by mouth 2 (two) times daily. [facility] gabapentin 300 mg capsule 405 00:00: 00 11-03 00:00 :00 No [id number] 300mg Take 1 capsule by mouth 3 (three) times daily. [facility] rizatriptan 5 mg disintegrat ing tablet 05-17 00:00: 00 11-03 00:00 :00 No [id number] 5mg Take 1 tablet by mouth as needed for Migraine (Take 5mg at the beginning of the headache can repeat 2h after if headaches persists). May repeat in 2 hours if needed [facility] magnesium gluconate 200 mg tablet 05-17 00:00: 00 11-03 00:00 :00 No [id number] 400mg Take 2 tablets by mouth 2 (two) times daily. [facility] artificial tears,hypro mellose, 0.5 % ophthalmic drops 405 00:00: 00 06-22 00:00 :00 No [id number] 1[drp] Place 1 Drop in left eye as needed for Dry eyes. [facility] artificial tears,hypro mellose, 0.5 % ophthalmic drops 05 00:00: 00 06-22 00:00 :00 No [id number] 1[drp] Place 1 Drop in left eye as needed for Dry eyes. [facility] clonazePAM 1 mg tablet 3-31 00:00: 00 08-09 00:00 :00 No [id number] Take no more than 1 mg twice daily as needed for anxiety [facility] clonazePAM 1 mg tablet 0 3-31 00:00: 00 08-09 00:00 :00 No [id number] Take no more than 1 mg twice daily as needed for anxiety [facility] lithium 600 mg capsule 0 3-30 00:00: 00 06-12 00:00 :00 No [id number] 600mg Take 1 capsule by mouth 2 (two) times daily. [facility] lithium 600 mg capsule 0 3-30 00:00: 00 06-12 00:00 :00 No [id number] 600mg Take 1 capsule by mouth 2 (two) times daily. [facility] ondansetron (ZOFRAN ODT) 4 mg disintegrat ing tablet 09-02 00:00: 00 Yes [id number] 4mg Take 1 tablet by mouth every 8 (eight) hours as needed for Nausea and Vomiting (N/V). [facility] ondansetron (ZOFRAN ODT) 4 mg disintegrat ing tablet 09-02 00:00: 00 Yes [id number] 4mg Take 1 tablet by mouth every 8 (eight) hours as needed for Nausea and Vomiting (N/V). [facility] ondansetron (ZOFRAN ODT) 4 mg disintegrat ing tablet 09-02 00:00: 00 Yes [id number] 4mg Take 1 tablet by mouth every 8 (eight) hours as needed for Nausea and Vomiting (N/V). [facility] ondansetron (ZOFRAN ODT) 4 mg disintegrat ing tablet 09-02 00:00: 00 Yes [id number] 4mg Take 1 tablet by mouth every 8 (eight) hours as needed for Nausea and Vomiting (N/V). [facility] ondansetron (ZOFRAN ODT) 4 mg disintegrat ing tablet 09-02 00:00: 00 Yes [id number] 4mg Take 1 tablet by mouth every 8 (eight) hours as needed for Nausea and Vomiting (N/V). [facility] ondansetron (ZOFRAN ODT) 4 mg disintegrat ing tablet 09-02 00:00: 00 Yes [id number] 4mg Take 1 tablet by mouth every 8 (eight) hours as needed for Nausea and Vomiting (N/V). [facility] ondansetron (ZOFRAN ODT) 4 mg disintegrat ing tablet 09-02 00:00: 00 Yes [id number] 4mg Take 1 tablet by mouth every 8 (eight) hours as needed for Nausea and Vomiting (N/V). [facility] ondansetron (ZOFRAN ODT) 4 mg disintegrat ing tablet 09-02 00:00: 00 Yes [id number] 4mg Take 1 tablet by mouth every 8 (eight) hours as needed for Nausea and Vomiting (N/V). [facility] ondansetron (ZOFRAN ODT) 4 mg disintegrat ing tablet 09-02 00:00: 00 Yes [id number] 4mg Take 1 tablet by mouth every 8 (eight) hours as needed for Nausea and Vomiting (N/V). [facility] ondansetron (ZOFRAN ODT) 4 mg disintegrat ing tablet 09-02 00:00: 00 Yes [id number] 4mg Take 1 tablet by mouth every 8 (eight) hours as needed for Nausea and Vomiting (N/V). [facility] ondansetron (ZOFRAN ODT) 4 mg disintegrat ing tablet 09-02 00:00: 00 Yes [id number] 4mg Take 1 tablet by mouth every 8 (eight) hours as needed for Nausea and Vomiting (N/V). [facility] ondansetron (ZOFRAN ODT) 4 mg disintegrat ing tablet 09-02 00:00: 00 Yes [id number] 4mg Take 1 tablet by mouth every 8 (eight) hours as needed for Nausea and Vomiting (N/V). [facility] ondansetron (ZOFRAN ODT) 4 mg disintegrat ing tablet 09-02 00:00: 00 Yes [id number] 4mg Take 1 tablet by mouth every 8 (eight) hours as needed for Nausea and Vomiting (N/V). [facility] ondansetron (ZOFRAN ODT) 4 mg disintegrat ing tablet 09-02 00:00: 00 Yes [id number] 4mg Take 1 tablet by mouth every 8 (eight) hours as needed for Nausea and Vomiting (N/V). [facility] ondansetron (ZOFRAN ODT) 4 mg disintegrat ing tablet 09-02 00:00: 00 Yes [id number] 4mg Take 1 tablet by mouth every 8 (eight) hours as needed for Nausea and Vomiting (N/V). [facility] ondansetron (ZOFRAN ODT) 4 mg disintegrat ing tablet 09-02 00:00: 00 Yes [id number] 4mg Take 1 tablet by mouth every 8 (eight) hours as needed for Nausea and Vomiting (N/V). [facility] ondansetron (ZOFRAN ODT) 4 mg disintegrat ing tablet 09-02 00:00: 00 Yes [id number] 4mg Take 1 tablet by mouth every 8 (eight) hours as needed for Nausea and Vomiting (N/V). [facility] ondansetron (ZOFRAN ODT) 4 mg disintegrat ing tablet 09-02 00:00: 00 Yes [id number] 4mg Take 1 tablet by mouth every 8 (eight) hours as needed for Nausea and Vomiting (N/V). [facility] ondansetron (ZOFRAN ODT) 4 mg disintegrat ing tablet 09-02 00:00: 00 Yes [id number] 4mg Take 1 tablet by mouth every 8 (eight) hours as needed for Nausea and Vomiting (N/V). [facility] ondansetron (ZOFRAN ODT) 4 mg disintegrat ing tablet 09-02 00:00: 00 Yes [id number] 4mg Take 1 tablet by mouth every 8 (eight) hours as needed for Nausea and Vomiting (N/V). [facility] ondansetron (ZOFRAN ODT) 4 mg disintegrat ing tablet 09-02 00:00: 00 Yes [id number] 4mg Take 1 tablet by mouth every 8 (eight) hours as needed for Nausea and Vomiting (N/V). [facility] ondansetron (ZOFRAN ODT) 4 mg disintegrat ing tablet 09-02 00:00: 00 Yes [id number] 4mg Take 1 tablet by mouth every 8 (eight) hours as needed for Nausea and Vomiting (N/V). [facility] ondansetron (ZOFRAN ODT) 4 mg disintegrat ing tablet 09-02 00:00: 00 Yes [id number] 4mg Take 1 tablet by mouth every 8 (eight) hours as needed for Nausea and Vomiting (N/V). [facility] ondansetron (ZOFRAN ODT) 4 mg disintegrat ing tablet 09-02 00:00: 00 Yes [id number] 4mg Take 1 tablet by mouth every 8 (eight) hours as needed for Nausea and Vomiting (N/V). [facility] ondansetron (ZOFRAN ODT) 4 mg disintegrat ing tablet 09-02 00:00: 00 Yes [id number] 4mg Take 1 tablet by mouth every 8 (eight) hours as needed for Nausea and Vomiting (N/V). [facility] ondansetron (ZOFRAN ODT) 4 mg disintegrat ing tablet 09-02 00:00: 00 Yes [id number] 4mg Take 1 tablet by mouth every 8 (eight) hours as needed for Nausea and Vomiting (N/V). [facility] ondansetron (ZOFRAN ODT) 4 mg disintegrat ing tablet 09-02 00:00: 00 Yes [id number] 4mg Take 1 tablet by mouth every 8 (eight) hours as needed for Nausea and Vomiting (N/V). [facility] ondansetron (ZOFRAN ODT) 4 mg disintegrat ing tablet 09-02 00:00: 00 Yes [id number] 4mg Take 1 tablet by mouth every 8 (eight) hours as needed for Nausea and Vomiting (N/V). [facility] ondansetron (ZOFRAN ODT) 4 mg disintegrat ing tablet 09-02 00:00: 00 Yes [id number] 4mg Take 1 tablet by mouth every 8 (eight) hours as needed for Nausea and Vomiting (N/V). [facility] ondansetron (ZOFRAN ODT) 4 mg disintegrat ing tablet 09-02 00:00: 00 Yes [id number] 4mg Take 1 tablet by mouth every 8 (eight) hours as needed for Nausea and Vomiting (N/V). [facility] ondansetron (ZOFRAN ODT) 4 mg disintegrat ing tablet 09-02 00:00: 00 Yes [id number] 4mg Take 1 tablet by mouth every 8 (eight) hours as needed for Nausea and Vomiting (N/V). [facility] ondansetron (ZOFRAN ODT) 4 mg disintegrat ing tablet 09-02 00:00: 00 Yes [id number] 4mg Take 1 tablet by mouth every 8 (eight) hours as needed for Nausea and Vomiting (N/V). [facility] ondansetron (ZOFRAN ODT) 4 mg disintegrat ing tablet 09-02 00:00: 00 Yes [id number] 4mg Take 1 tablet by mouth every 8 (eight) hours as needed for Nausea and Vomiting (N/V). [facility] ondansetron (ZOFRAN ODT) 4 mg disintegrat ing tablet 09-02 00:00: 00 Yes [id number] 4mg Take 1 tablet by mouth every 8 (eight) hours as needed for Nausea and Vomiting (N/V). [facility] ondansetron (ZOFRAN ODT) 4 mg disintegrat ing tablet 09-02 00:00: 00 Yes [id number] 4mg Take 1 tablet by mouth every 8 (eight) hours as needed for Nausea and Vomiting (N/V). [facility] ondansetron (ZOFRAN ODT) 4 mg disintegrat ing tablet 09-02 00:00: 00 Yes [id number] 4mg Take 1 tablet by mouth every 8 (eight) hours as needed for Nausea and Vomiting (N/V). [facility] ondansetron (ZOFRAN ODT) 4 mg disintegrat ing tablet 09-02 00:00: 00 Yes [id number] 4mg Take 1 tablet by mouth every 8 (eight) hours as needed for Nausea and Vomiting (N/V). [facility] ondansetron (ZOFRAN ODT) 4 mg disintegrat ing tablet 09-02 00:00: 00 Yes [id number] 4mg Take 1 tablet by mouth every 8 (eight) hours as needed for Nausea and Vomiting (N/V). [facility] ondansetron (ZOFRAN ODT) 4 mg disintegrat ing tablet 09-02 00:00: 00 Yes [id number] 4mg Take 1 tablet by mouth every 8 (eight) hours as needed for Nausea and Vomiting (N/V). [facility] ondansetron (ZOFRAN ODT) 4 mg disintegrat ing tablet 09-02 00:00: 00 Yes [id number] 4mg Take 1 tablet by mouth every 8 (eight) hours as needed for Nausea and Vomiting (N/V). [facility] ondansetron (ZOFRAN ODT) 4 mg disintegrat ing tablet 09-02 00:00: 00 Yes [id number] 4mg Take 1 tablet by mouth every 8 (eight) hours as needed for Nausea and Vomiting (N/V). [facility] ondansetron (ZOFRAN ODT) 4 mg disintegrat ing tablet 09-02 00:00: 00 Yes [id number] 4mg Take 1 tablet by mouth every 8 (eight) hours as needed for Nausea and Vomiting (N/V). [facility] ondansetron (ZOFRAN ODT) 4 mg disintegrat ing tablet 09-02 00:00: 00 Yes [id number] 4mg Take 1 tablet by mouth every 8 (eight) hours as needed for Nausea and Vomiting (N/V). [facility] ondansetron (ZOFRAN ODT) 4 mg disintegrat ing tablet 09-02 00:00: 00 Yes [id number] 4mg Take 1 tablet by mouth every 8 (eight) hours as needed for Nausea and Vomiting (N/V). [facility] ondansetron (ZOFRAN ODT) 4 mg disintegrat ing tablet 09-02 00:00: 00 Yes [id number] 4mg Take 1 tablet by mouth every 8 (eight) hours as needed for Nausea and Vomiting (N/V). [facility] ondansetron (ZOFRAN ODT) 4 mg disintegrat ing tablet 09-02 00:00: 00 Yes [id number] 4mg Take 1 tablet by mouth every 8 (eight) hours as needed for Nausea and Vomiting (N/V). [facility] ondansetron (ZOFRAN ODT) 4 mg disintegrat ing tablet 09-02 00:00: 00 Yes [id number] 4mg Take 1 tablet by mouth every 8 (eight) hours as needed for Nausea and Vomiting (N/V). [facility] ondansetron (ZOFRAN ODT) 4 mg disintegrat ing tablet 09-02 00:00: 00 Yes [id number] 4mg Take 1 tablet by mouth every 8 (eight) hours as needed for Nausea and Vomiting (N/V). [facility] ondansetron (ZOFRAN ODT) 4 mg disintegrat ing tablet 09-02 00:00: 00 Yes [id number] 4mg Take 1 tablet by mouth every 8 (eight) hours as needed for Nausea and Vomiting (N/V). [facility] ondansetron (ZOFRAN ODT) 4 mg disintegrat ing tablet 09-02 00:00: 00 Yes [id number] 4mg Take 1 tablet by mouth every 8 (eight) hours as needed for Nausea and Vomiting (N/V). [facility] ondansetron (ZOFRAN ODT) 4 mg disintegrat ing tablet 09-02 00:00: 00 Yes [id number] 4mg Take 1 tablet by mouth every 8 (eight) hours as needed for Nausea and Vomiting (N/V). [facility] ondansetron (ZOFRAN ODT) 4 mg disintegrat ing tablet 09-02 00:00: 00 Yes [id number] 4mg Take 1 tablet by mouth every 8 (eight) hours as needed for Nausea and Vomiting (N/V). [facility] ondansetron (ZOFRAN ODT) 4 mg disintegrat ing tablet 09-02 00:00: 00 Yes [id number] 4mg Take 1 tablet by mouth every 8 (eight) hours as needed for Nausea and Vomiting (N/V). [facility] ondansetron (ZOFRAN ODT) 4 mg disintegrat ing tablet 09-02 00:00: 00 Yes [id number] 4mg Take 1 tablet by mouth every 8 (eight) hours as needed for Nausea and Vomiting (N/V). [facility] ondansetron (ZOFRAN ODT) 4 mg disintegrat ing tablet 09-02 00:00: 00 Yes [id number] 4mg Take 1 tablet by mouth every 8 (eight) hours as needed for Nausea and Vomiting (N/V). [facility] ondansetron (ZOFRAN ODT) 4 mg disintegrat ing tablet 09-02 00:00: 00 Yes [id number] 4mg Take 1 tablet by mouth every 8 (eight) hours as needed for Nausea and Vomiting (N/V). [facility] ondansetron (ZOFRAN ODT) 4 mg disintegrat ing tablet 09-02 00:00: 00 Yes [id number] 4mg Take 1 tablet by mouth every 8 (eight) hours as needed for Nausea and Vomiting (N/V). [facility] ondansetron (ZOFRAN ODT) 4 mg disintegrat ing tablet 09-02 00:00: 00 Yes [id number] 4mg Take 1 tablet by mouth every 8 (eight) hours as needed for Nausea and Vomiting (N/V). [facility] ondansetron (ZOFRAN ODT) 4 mg disintegrat ing tablet 09-02 00:00: 00 Yes [id number] 4mg Take 1 tablet by mouth every 8 (eight) hours as needed for Nausea and Vomiting (N/V). [facility] ondansetron (ZOFRAN ODT) 4 mg disintegrat ing tablet 09-02 00:00: 00 11-03 00:00 :00 No [id number] 4mg Take 1 tablet by mouth every 8 (eight) hours as needed for Nausea and Vomiting (N/V). [facility] ondansetron (ZOFRAN ODT) 4 mg disintegrat ing tablet 09-02 00:00: 00 11-03 00:00 :00 No [id number] 4mg Take 1 tablet by mouth every 8 (eight) hours as needed for Nausea and Vomiting (N/V). [facility] ondansetron (ZOFRAN ODT) 4 mg disintegrat ing tablet 09-02 00:00: 00 11-03 00:00 :00 No [id number] 4mg Take 1 tablet by mouth every 8 (eight) hours as needed for Nausea and Vomiting (N/V). [facility] ondansetron (ZOFRAN ODT) 4 mg disintegrat ing tablet 09-02 00:00: 00 11-03 00:00 :00 No [id number] 4mg Take 1 tablet by mouth every 8 (eight) hours as needed for Nausea and Vomiting (N/V). [facility] ondansetron (ZOFRAN ODT) 4 mg disintegrat ing tablet 09-02 00:00: 00 11-03 00:00 :00 No [id number] 4mg Take 1 tablet by mouth every 8 (eight) hours as needed for Nausea and Vomiting (N/V). [facility] ondansetron (ZOFRAN ODT) 4 mg disintegrat ing tablet 09-02 00:00: 00 11-03 00:00 :00 No [id number] 4mg Take 1 tablet by mouth every 8 (eight) hours as needed for Nausea and Vomiting (N/V). [facility] ondansetron (ZOFRAN ODT) 4 mg disintegrat ing tablet 09-02 00:00: 00 11-03 00:00 :00 No [id number] 4mg Take 1 tablet by mouth every 8 (eight) hours as needed for Nausea and Vomiting (N/V). [facility] ondansetron (ZOFRAN ODT) 4 mg disintegrat ing tablet 09-02 00:00: 00 11-03 00:00 :00 No [id number] 4mg Take 1 tablet by mouth every 8 (eight) hours as needed for Nausea and Vomiting (N/V). [facility] ondansetron (ZOFRAN ODT) 4 mg disintegrat ing tablet 09-02 00:00: 00 11-03 00:00 :00 No [id number] 4mg Take 1 tablet by mouth every 8 (eight) hours as needed for Nausea and Vomiting (N/V). [facility] ondansetron (ZOFRAN ODT) 4 mg disintegrat ing tablet 09-02 00:00: 00 11-03 00:00 :00 No [id number] 4mg Take 1 tablet by mouth every 8 (eight) hours as needed for Nausea and Vomiting (N/V). [facility] butalbital- acetaminoph en-caff 50-325-40 mg tablet 09-02 00:00: 00 06-22 00:00 :00 No [id number] 1{tbl} Take 1 tablet by mouth every 6 (six) hours as needed for Pain (scale 7-10). [facility] butalbital- acetaminoph en-caff 50-325-40 mg tablet 09-02 00:00: 00 06-22 00:00 :00 No [id number] 1{tbl} Take 1 tablet by mouth every 6 (six) hours as needed for Pain (scale 7-10). [facility] allopurinoL 100 mg tablet 08-05 13:17: 52 Yes 100mg Take 100 mg by mouth daily. [facility] atorvastati n 10 mg tablet 08-05 13:17: 52 Yes 10mg Take 10 mg by mouth at bedtime. [facility] allopurinoL 100 mg tablet 08-05 13:17: 52 Yes 100mg Take 100 mg by mouth daily. [facility] atorvastati n 10 mg tablet 6 13:17: 52 Yes 10mg Take 10 mg by mouth at bedtime. [facility] allopurinoL 100 mg tablet 08-05 13:17: 52 Yes 100mg Take 100 mg by mouth daily. [facility] atorvastati n 10 mg tablet 2020-0 6-24 13:17: 52 Yes 10mg Take 10 mg by mouth at bedtime. [facility] allopurinoL 100 mg tablet 2020-0 6-24 13:17: 52 Yes 100mg Take 100 mg by mouth daily. [facility] atorvastati n 10 mg tablet 2020-0 6-24 13:17: 52 Yes 10mg Take 10 mg by mouth at bedtime. [facility] allopurinoL 100 mg tablet 2020-0 6-24 13:17: 52 Yes 100mg Take 100 mg by mouth daily. [facility] atorvastati n 10 mg tablet 2020-0 6-24 13:17: 52 Yes 10mg Take 10 mg by mouth at bedtime. [facility] allopurinoL 100 mg tablet 2019-0 6-24 13:17: 52 Yes 100mg Take 100 mg by mouth daily. [facility] atorvastati n 10 mg tablet 2020-0 6-24 13:17: 52 Yes 10mg Take 10 mg by mouth at bedtime. [facility] allopurinoL 100 mg tablet 0 624 13:17: 52 Yes 100mg Take 100 mg by mouth daily. [facility] atorvastati n 10 mg tablet 2019-0 6-24 13:17: 52 Yes 10mg Take 10 mg by mouth at bedtime. [facility] allopurinoL 100 mg tablet 2020-0 6-24 13:17: 52 Yes 100mg Take 100 mg by mouth daily. [facility] atorvastati n 10 mg tablet 2020-0 6-24 13:17: 52 Yes 10mg Take 10 mg by mouth at bedtime. [facility] allopurinoL 100 mg tablet 2020-0 6-24 13:17: 52 Yes 100mg Take 100 mg by mouth daily. [facility] atorvastati n 10 mg tablet 2020-0 6-24 13:17: 52 Yes 10mg Take 10 mg by mouth at bedtime. [facility] allopurinoL 100 mg tablet 2020-0 6-24 13:17: 52 Yes 100mg Take 100 mg by mouth daily. [facility] atorvastati n 10 mg tablet 2020-0 6-24 13:17: 52 Yes 10mg Take 10 mg by mouth at bedtime. [facility] allopurinoL 100 mg tablet 2020-0 6-24 13:17: 52 Yes 100mg Take 100 mg by mouth daily. [facility] atorvastati n 10 mg tablet 2020-0 6-24 13:17: 52 Yes 10mg Take 10 mg by mouth at bedtime. [facility] allopurinoL 100 mg tablet 2020-0 6-24 13:17: 52 Yes 100mg Take 100 mg by mouth daily. [facility] atorvastati n 10 mg tablet 2020-0 6-24 13:17: 52 Yes 10mg Take 10 mg by mouth at bedtime. [facility] allopurinoL 100 mg tablet 2020-0 6-24 13:17: 52 Yes 100mg Take 100 mg by mouth daily. [facility] atorvastati n 10 mg tablet 2020-0 6-24 13:17: 52 Yes 10mg Take 10 mg by mouth at bedtime. [facility] allopurinoL 100 mg tablet 2020-0 6-24 13:17: 52 Yes 100mg Take 100 mg by mouth daily. [facility] atorvastati n 10 mg tablet 2020-0 6-24 13:17: 52 Yes 10mg Take 10 mg by mouth at bedtime. [facility] allopurinoL 100 mg tablet 2020-0 6-24 13:17: 52 Yes 100mg Take 100 mg by mouth daily. [facility] atorvastati n 10 mg tablet 2020-0 6-24 13:17: 52 Yes 10mg Take 10 mg by mouth at bedtime. [facility] allopurinoL 100 mg tablet 2020-0 6-24 13:17: 52 Yes 100mg Take 100 mg by mouth daily. [facility] atorvastati n 10 mg tablet 2020-0 6-24 13:17: 52 Yes 10mg Take 10 mg by mouth at bedtime. [facility] allopurinoL 100 mg tablet 2020-0 6-24 13:17: 52 Yes 100mg Take 100 mg by mouth daily. [facility] atorvastati n 10 mg tablet 2020-0 6-24 13:17: 52 Yes 10mg Take 10 mg by mouth at bedtime. [facility] allopurinoL 100 mg tablet 2020-0 6-24 13:17: 52 Yes 100mg Take 100 mg by mouth daily. [facility] atorvastati n 10 mg tablet 2020-0 6-24 13:17: 52 Yes 10mg Take 10 mg by mouth at bedtime. [facility] allopurinoL 100 mg tablet 2020-0 6-24 13:17: 52 Yes 100mg Take 100 mg by mouth daily. [facility] atorvastati n 10 mg tablet 2020-0 6-24 13:17: 52 Yes 10mg Take 10 mg by mouth at bedtime. [facility] allopurinoL 100 mg tablet 2020-0 624 13:17: 52 Yes 100mg Take 100 mg by mouth daily. [facility] atorvastati n 10 mg tablet 2019-0 6-24 13:17: 52 Yes 10mg Take 10 mg by mouth at bedtime. [facility] allopurinoL 100 mg tablet 0 624 13:17: 52 Yes 100mg Take 100 mg by mouth daily. [facility] atorvastati n 10 mg tablet 2019-0 624 13:17: 52 Yes 10mg Take 10 mg by mouth at bedtime. [facility] allopurinoL 100 mg tablet 0 624 13:17: 52 Yes 100mg Take 100 mg by mouth daily. [facility] atorvastati n 10 mg tablet 2019-0 6-24 13:17: 52 Yes 10mg Take 10 mg by mouth at bedtime. [facility] allopurinoL 100 mg tablet 2020-0 6-24 13:17: 52 Yes 100mg Take 100 mg by mouth daily. [facility] atorvastati n 10 mg tablet 2020-0 6-24 13:17: 52 Yes 10mg Take 10 mg by mouth at bedtime. [facility] allopurinoL 100 mg tablet 2020-0 6-24 13:17: 52 Yes 100mg Take 100 mg by mouth daily. [facility] atorvastati n 10 mg tablet 2020-0 6-24 13:17: 52 Yes 10mg Take 10 mg by mouth at bedtime. [facility] allopurinoL 100 mg tablet 2020-0 6-24 13:17: 52 Yes 100mg Take 100 mg by mouth daily. [facility] atorvastati n 10 mg tablet 2020-0 6-24 13:17: 52 Yes 10mg Take 10 mg by mouth at bedtime. [facility] allopurinoL 100 mg tablet 2020-0 6-24 13:17: 52 Yes 100mg Take 100 mg by mouth daily. [facility] atorvastati n 10 mg tablet 2020-0 6-24 13:17: 52 Yes 10mg Take 10 mg by mouth at bedtime. [facility] allopurinoL 100 mg tablet 2020-0 6-24 13:17: 52 Yes 100mg Take 100 mg by mouth daily. [facility] atorvastati n 10 mg tablet 2020-0 6-24 13:17: 52 Yes 10mg Take 10 mg by mouth at bedtime. [facility] allopurinoL 100 mg tablet 2020-0 6-24 13:17: 52 Yes 100mg Take 100 mg by mouth daily. [facility] atorvastati n 10 mg tablet 2020-0 6-24 13:17: 52 Yes 10mg Take 10 mg by mouth at bedtime. [facility] allopurinoL 100 mg tablet 20200 6-24 13:17: 52 Yes 100mg Take 100 mg by mouth daily. [facility] atorvastati n 10 mg tablet 2020-0 6-24 13:17: 52 Yes 10mg Take 10 mg by mouth at bedtime. [facility] allopurinoL 100 mg tablet 2020-0 6-24 13:17: 52 Yes 100mg Take 100 mg by mouth daily. [facility] atorvastati n 10 mg tablet 2020-0 6-24 13:17: 52 Yes 10mg Take 10 mg by mouth at bedtime. [facility] allopurinoL 100 mg tablet 2020-0 6-24 13:17: 52 Yes 100mg Take 100 mg by mouth daily. [facility] atorvastati n 10 mg tablet 2020-0 6-24 13:17: 52 Yes 10mg Take 10 mg by mouth at bedtime. [facility] allopurinoL 100 mg tablet 2020-0 6-24 13:17: 52 Yes 100mg Take 100 mg by mouth daily. [facility] atorvastati n 10 mg tablet 2020-0 6-24 13:17: 52 Yes 10mg Take 10 mg by mouth at bedtime. [facility] allopurinoL 100 mg tablet 2020-0 6-24 13:17: 52 Yes 100mg Take 100 mg by mouth daily. [facility] atorvastati n 10 mg tablet 2020-0 6-24 13:17: 52 Yes 10mg Take 10 mg by mouth at bedtime. [facility] allopurinoL 100 mg tablet 2020-0 6-24 13:17: 52 Yes 100mg Take 100 mg by mouth daily. [facility] atorvastati n 10 mg tablet 2020-0 6-24 13:17: 52 Yes 10mg Take 10 mg by mouth at bedtime. [facility] allopurinoL 100 mg tablet 2020-0 6-24 13:17: 52 Yes 100mg Take 100 mg by mouth daily. [facility] atorvastati n 10 mg tablet 2019-0 6-24 13:17: 52 Yes 10mg Take 10 mg by mouth at bedtime. [facility] allopurinoL 100 mg tablet 2020-0 6-24 13:17: 52 Yes 100mg Take 100 mg by mouth daily. [facility] atorvastati n 10 mg tablet 2020-0 6-24 13:17: 52 Yes 10mg Take 10 mg by mouth at bedtime. [facility] allopurinoL 100 mg tablet 2020-0 6-24 13:17: 52 Yes 100mg Take 100 mg by mouth daily. [facility] atorvastati n 10 mg tablet 2020-0 6-24 13:17: 52 Yes 10mg Take 10 mg by mouth at bedtime. [facility] allopurinoL 100 mg tablet 2020-0 6-24 13:17: 52 Yes 100mg Take 100 mg by mouth daily. [facility] atorvastati n 10 mg tablet 2020-0 6-24 13:17: 52 Yes 10mg Take 10 mg by mouth at bedtime. [facility] allopurinoL 100 mg tablet 2020-0 6-24 13:17: 52 Yes 100mg Take 100 mg by mouth daily. [facility] atorvastati n 10 mg tablet 2020-0 6-24 13:17: 52 Yes 10mg Take 10 mg by mouth at bedtime. [facility] allopurinoL 100 mg tablet 2020-0 6-24 13:17: 52 Yes 100mg Take 100 mg by mouth daily. [facility] atorvastati n 10 mg tablet 2020-0 6-24 13:17: 52 Yes 10mg Take 10 mg by mouth at bedtime. [facility] allopurinoL 100 mg tablet 2020-0 6-24 13:17: 52 Yes 100mg Take 100 mg by mouth daily. [facility] atorvastati n 10 mg tablet 2020-0 6-24 13:17: 52 Yes 10mg Take 10 mg by mouth at bedtime. [facility] allopurinoL 100 mg tablet 2020-0 6-24 13:17: 52 Yes 100mg Take 100 mg by mouth daily. [facility] atorvastati n 10 mg tablet 2020-0 6-24 13:17: 52 Yes 10mg Take 10 mg by mouth at bedtime. [facility] allopurinoL 100 mg tablet 2020-0 6-24 13:17: 52 Yes 100mg Take 100 mg by mouth daily. [facility] atorvastati n 10 mg tablet 2020-0 6-24 13:17: 52 Yes 10mg Take 10 mg by mouth at bedtime. [facility] allopurinoL 100 mg tablet 2020-0 6-24 13:17: 52 Yes 100mg Take 100 mg by mouth daily. [facility] atorvastati n 10 mg tablet 2020-0 6-24 13:17: 52 Yes 10mg Take 10 mg by mouth at bedtime. [facility] allopurinoL 100 mg tablet 2020-0 6-24 13:17: 52 Yes 100mg Take 100 mg by mouth daily. [facility] atorvastati n 10 mg tablet 2020-0 6-24 13:17: 52 Yes 10mg Take 10 mg by mouth at bedtime. [facility] allopurinoL 100 mg tablet 2020-0 6-24 13:17: 52 Yes 100mg Take 100 mg by mouth daily. [facility] atorvastati n 10 mg tablet 2020-0 6-24 13:17: 52 Yes 10mg Take 10 mg by mouth at bedtime. [facility] allopurinoL 100 mg tablet 2020-0 6-24 13:17: 52 Yes 100mg Take 100 mg by mouth daily. [facility] atorvastati n 10 mg tablet 2020-0 6-24 13:17: 52 Yes 10mg Take 10 mg by mouth at bedtime. [facility] allopurinoL 100 mg tablet 2020-0 6-24 13:17: 52 Yes 100mg Take 100 mg by mouth daily. [facility] atorvastati n 10 mg tablet 2020-0 6-24 13:17: 52 Yes 10mg Take 10 mg by mouth at bedtime. [facility] allopurinoL 100 mg tablet 2020-0 6-24 13:17: 52 Yes 100mg Take 100 mg by mouth daily. [facility] atorvastati n 10 mg tablet 2020-0 624 13:17: 52 Yes 10mg Take 10 mg by mouth at bedtime. [facility] allopurinoL 100 mg tablet 2020-0 6-24 13:17: 52 Yes 100mg Take 100 mg by mouth daily. [facility] atorvastati n 10 mg tablet 2020-0 6-24 13:17: 52 Yes 10mg Take 10 mg by mouth at bedtime. [facility] allopurinoL 100 mg tablet 2020-0 6-24 13:17: 52 Yes 100mg Take 100 mg by mouth daily. [facility] atorvastati n 10 mg tablet 2020-0 6-24 13:17: 52 Yes 10mg Take 10 mg by mouth at bedtime. [facility] allopurinoL 100 mg tablet 2020-0 6-24 13:17: 52 Yes 100mg Take 100 mg by mouth daily. [facility] atorvastati n 10 mg tablet 2020-0 6-24 13:17: 52 Yes 10mg Take 10 mg by mouth at bedtime. [facility] allopurinoL 100 mg tablet 2020-0 6-24 13:17: 52 Yes 100mg Take 100 mg by mouth daily. [facility] atorvastati n 10 mg tablet 2020-0 6-24 13:17: 52 Yes 10mg Take 10 mg by mouth at bedtime. [facility] allopurinoL 100 mg tablet 2020-0 6-24 13:17: 52 Yes 100mg Take 100 mg by mouth daily. [facility] atorvastati n 10 mg tablet 2020-0 6-24 13:17: 52 Yes 10mg Take 10 mg by mouth at bedtime. [facility] allopurinoL 100 mg tablet 2020-0 6-24 13:17: 52 Yes 100mg Take 100 mg by mouth daily. [facility] atorvastati n 10 mg tablet 2019-0 624 13:17: 52 Yes 10mg Take 10 mg by mouth at bedtime. [facility] allopurinoL 100 mg tablet 2019-0 624 13:17: 52 Yes 100mg Take 100 mg by mouth daily. [facility] atorvastati n 10 mg tablet 2020-0 624 13:17: 52 Yes 10mg Take 10 mg by mouth at bedtime. [facility] allopurinoL 100 mg tablet 0 624 13:17: 52 Yes 100mg Take 100 mg by mouth daily. [facility] atorvastati n 10 mg tablet 2020-0 6-24 13:17: 52 Yes 10mg Take 10 mg by mouth at bedtime. [facility] allopurinoL 100 mg tablet 2020-0 6-24 13:17: 52 Yes 100mg Take 100 mg by mouth daily. [facility] atorvastati n 10 mg tablet 2020-0 6-24 13:17: 52 Yes 10mg Take 10 mg by mouth at bedtime. [facility] allopurinoL 100 mg tablet 2020-0 6-24 13:17: 52 Yes 100mg Take 100 mg by mouth daily. [facility] atorvastati n 10 mg tablet 08-05 13:17: 52 Yes 10mg Take 10 mg by mouth at bedtime. [facility] allopurinoL 100 mg tablet 08-05 13:17: 52 Yes 100mg Take 100 mg by mouth daily. [facility] allopurinoL 100 mg tablet 08-05 13:17: 52 Yes 100mg Take 100 mg by mouth daily. [facility] allopurinoL 100 mg tablet 08-05 13:17: 52 Yes 100mg Take 100 mg by mouth daily. [facility] allopurinoL 100 mg tablet 08-05 13:17: 52 Yes 100mg Take 100 mg by mouth daily. [facility] allopurinoL 100 mg tablet 08-05 13:17: 52 Yes 100mg Take 100 mg by mouth daily. [facility] allopurinoL 100 mg tablet 08-05 13:17: 52 Yes 100mg Take 100 mg by mouth daily. [facility] propranolol 80 mg tablet 08-05 13:12: 38 Yes 80mg Take 80 mg by mouth 2 (two) times daily. [facility] propranolol 80 mg tablet 08-05 13:12: 38 Yes 80mg Take 80 mg by mouth 2 (two) times daily. [facility] propranolol 80 mg tablet 08-05 13:12: 38 Yes 80mg Take 80 mg by mouth 2 (two) times daily. [facility] propranolol 80 mg tablet 08-05 13:12: 38 Yes 80mg Take 80 mg by mouth 2 (two) times daily. [facility] propranolol 80 mg tablet 08-05 13:12: 38 Yes 80mg Take 80 mg by mouth 2 (two) times daily. [facility] propranolol 80 mg tablet 08-05 13:12: 38 Yes 80mg Take 80 mg by mouth 2 (two) times daily. [facility] propranolol 80 mg tablet 2020-0 6-24 13:12: 38 Yes 80mg Take 80 mg by mouth 2 (two) times daily. [facility] propranolol 80 mg tablet 2020-0 6-24 13:12: 38 Yes 80mg Take 80 mg by mouth 2 (two) times daily. [facility] propranolol 80 mg tablet 2020-0 6-24 13:12: 38 Yes 80mg Take 80 mg by mouth 2 (two) times daily. [facility] propranolol 80 mg tablet 2020-0 6-24 13:12: 38 Yes 80mg Take 80 mg by mouth 2 (two) times daily. [facility] propranolol 80 mg tablet 2020-0 6-24 13:12: 38 Yes 80mg Take 80 mg by mouth 2 (two) times daily. [facility] propranolol 80 mg tablet 2020-0 6-24 13:12: 38 Yes 80mg Take 80 mg by mouth 2 (two) times daily. [facility] propranolol 80 mg tablet 2020-0 6-24 13:12: 38 Yes 80mg Take 80 mg by mouth 2 (two) times daily. [facility] propranolol 80 mg tablet 2020-0 6-24 13:12: 38 Yes 80mg Take 80 mg by mouth 2 (two) times daily. [facility] propranolol 80 mg tablet 2020-0 6-24 13:12: 38 Yes 80mg Take 80 mg by mouth 2 (two) times daily. [facility] propranolol 80 mg tablet 2020-0 6-24 13:12: 38 Yes 80mg Take 80 mg by mouth 2 (two) times daily. [facility] propranolol 80 mg tablet 2020-0 6-24 13:12: 38 Yes 80mg Take 80 mg by mouth 2 (two) times daily. [facility] propranolol 80 mg tablet 2020-0 6-24 13:12: 38 Yes 80mg Take 80 mg by mouth 2 (two) times daily. [facility] propranolol 80 mg tablet 2020-0 6-24 13:12: 38 Yes 80mg Take 80 mg by mouth 2 (two) times daily. [facility] propranolol 80 mg tablet 2020-0 6-24 13:12: 38 Yes 80mg Take 80 mg by mouth 2 (two) times daily. [facility] propranolol 80 mg tablet 2020-0 6-24 13:12: 38 Yes 80mg Take 80 mg by mouth 2 (two) times daily. [facility] propranolol 80 mg tablet 2020-0 6-24 13:12: 38 Yes 80mg Take 80 mg by mouth 2 (two) times daily. [facility] propranolol 80 mg tablet 2020-0 6-24 13:12: 38 Yes 80mg Take 80 mg by mouth 2 (two) times daily. [facility] propranolol 80 mg tablet 2020-0 6-24 13:12: 38 Yes 80mg Take 80 mg by mouth 2 (two) times daily. [facility] propranolol 80 mg tablet 2020-0 6-24 13:12: 38 Yes 80mg Take 80 mg by mouth 2 (two) times daily. [facility] it[facility] propranolol 80 mg tablet 2020-0 6-24 13:12: 38 Yes 80mg Take 80 mg by mouth 2 (two) times daily. [facility] it[facility] propranolol 80 mg tablet 2020-0 6-24 13:12: 38 Yes 80mg Take 80 mg by mouth 2 (two) times daily. [facility] it[facility] propranolol 80 mg tablet 2020-0 6-24 13:12: 38 Yes 80mg Take 80 mg by mouth 2 (two) times daily. [facility] propranolol 80 mg tablet 2020-0 6-24 13:12: 38 Yes 80mg Take 80 mg by mouth 2 (two) times daily. [facility] it[facility] propranolol 80 mg tablet 2020-0 6-24 13:12: 38 Yes 80mg Take 80 mg by mouth 2 (two) times daily. [facility] it[facility] propranolol 80 mg tablet 2020-0 6-24 13:12: 38 Yes 80mg Take 80 mg by mouth 2 (two) times daily. [facility] propranolol 80 mg tablet 2020-0 6-24 13:12: 38 Yes 80mg Take 80 mg by mouth 2 (two) times daily. [facility] propranolol 80 mg tablet 2020-0 6-24 13:12: 38 Yes 80mg Take 80 mg by mouth 2 (two) times daily. [facility] propranolol 80 mg tablet 2020-0 6-24 13:12: 38 Yes 80mg Take 80 mg by mouth 2 (two) times daily. [facility] propranolol 80 mg tablet 2020-0 6-24 13:12: 38 Yes 80mg Take 80 mg by mouth 2 (two) times daily. [facility] propranolol 80 mg tablet 2020-0 6-24 13:12: 38 Yes 80mg Take 80 mg by mouth 2 (two) times daily. [facility] propranolol 80 mg tablet 2020-0 6-24 13:12: 38 Yes 80mg Take 80 mg by mouth 2 (two) times daily. [facility] propranolol 80 mg tablet 2020-0 6-24 13:12: 38 Yes 80mg Take 80 mg by mouth 2 (two) times daily. [facility] propranolol 80 mg tablet 2020-0 6-24 13:12: 38 Yes 80mg Take 80 mg by mouth 2 (two) times daily. [facility] propranolol 80 mg tablet 2020-0 6-24 13:12: 38 Yes 80mg Take 80 mg by mouth 2 (two) times daily. [facility] propranolol 80 mg tablet 2020-0 6-24 13:12: 38 Yes 80mg Take 80 mg by mouth 2 (two) times daily. [facility] propranolol 80 mg tablet 20200 6-24 13:12: 38 Yes 80mg Take 80 mg by mouth 2 (two) times daily. [facility] propranolol 80 mg tablet 2020-0 6-24 13:12: 38 Yes 80mg Take 80 mg by mouth 2 (two) times daily. [facility] propranolol 80 mg tablet 2020-0 6-24 13:12: 38 Yes 80mg Take 80 mg by mouth 2 (two) times daily. [facility] propranolol 80 mg tablet 2020-0 6-24 13:12: 38 Yes 80mg Take 80 mg by mouth 2 (two) times daily. [facility] propranolol 80 mg tablet 2020-0 6-24 13:12: 38 Yes 80mg Take 80 mg by mouth 2 (two) times daily. [facility] propranolol 80 mg tablet 2020-0 6-24 13:12: 38 Yes 80mg Take 80 mg by mouth 2 (two) times daily. [facility] propranolol 80 mg tablet 2020-0 6-24 13:12: 38 Yes 80mg Take 80 mg by mouth 2 (two) times daily. [facility] propranolol 80 mg tablet 2020-0 6-24 13:12: 38 Yes 80mg Take 80 mg by mouth 2 (two) times daily. [facility] propranolol 80 mg tablet 2020-0 6-24 13:12: 38 Yes 80mg Take 80 mg by mouth 2 (two) times daily. [facility] propranolol 80 mg tablet 2020-0 6-24 13:12: 38 Yes 80mg Take 80 mg by mouth 2 (two) times daily. [facility] propranolol 80 mg tablet 2020-0 6-24 13:12: 38 Yes 80mg Take 80 mg by mouth 2 (two) times daily. [facility] propranolol 80 mg tablet 2020-0 6-24 13:12: 38 Yes 80mg Take 80 mg by mouth 2 (two) times daily. [facility] propranolol 80 mg tablet 2020-0 6-24 13:12: 38 Yes 80mg Take 80 mg by mouth 2 (two) times daily. [facility] propranolol 80 mg tablet 2020-0 6-24 13:12: 38 Yes 80mg Take 80 mg by mouth 2 (two) times daily. [facility] propranolol 80 mg tablet 2020-0 6-24 13:12: 38 Yes 80mg Take 80 mg by mouth 2 (two) times daily. [facility] propranolol 80 mg tablet 2020-0 6-24 13:12: 38 Yes 80mg Take 80 mg by mouth 2 (two) times daily. [facility] propranolol 80 mg tablet 2020-0 6-24 13:12: 38 Yes 80mg Take 80 mg by mouth 2 (two) times daily. [facility] propranolol 80 mg tablet 2020-0 6-24 13:12: 38 Yes 80mg Take 80 mg by mouth 2 (two) times daily. [facility] propranolol 80 mg tablet 2020-0 6-24 13:12: 38 Yes 80mg Take 80 mg by mouth 2 (two) times daily. [facility] propranolol 80 mg tablet 2020-0 6-24 13:12: 38 Yes 80mg Take 80 mg by mouth 2 (two) times daily. [facility] propranolol 80 mg tablet 08-05 13:12: 38 Yes 80mg Take 80 mg by mouth 2 (two) times daily. [facility] propranolol 80 mg tablet 08-05 13:12: 38 Yes 80mg Take 80 mg by mouth 2 (two) times daily. [facility] propranolol 80 mg tablet 08-05 13:12: 38 Yes 80mg Take 80 mg by mouth 2 (two) times daily. [facility] propranolol 80 mg tablet 08-05 13:12: 38 Yes 80mg Take 80 mg by mouth 2 (two) times daily. 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 Systolic blood pressure 2023-02-15 15:53:00 132 mm[Hg] [facility] Diastolic blood pressure 2023-02-15 15:53:00 73 mm[Hg] [facility] Heart rate 2023-02-15 15:53:00 74 /min [facility] Body temperature 2023-02-15 15:53:00 36.44 Verna [facility] Respiratory rate 2023-02-15 15:53:00 16 /min [facility] Body height 2023-02-15 15:53:00 167.6 cm [facility] Body weight 2023-02-15 15:53:00 100.336 kg [facility] BMI 2023-02-15 15:53:00 35.70 kg/m2 [facility] Oxygen saturation in Arterial blood by Pulse oximetry 2023-02-15 15:53:00 100 /min [facility] Systolic blood pressure 2022-11-13 14:08:00 117 mm[Hg] [facility] Diastolic blood pressure 2022-11-13 14:08:00 70 mm[Hg] [facility] Heart rate 2022-11-13 14:08:00 64 /min [facility] Respiratory rate 2022-11-13 14:08:00 12 /min [facility] Oxygen saturation in Arterial blood by Pulse oximetry 2022-11-13 14:08:00 99 /min [facility] Body temperature 2022-11-13 13:38:00 36.39 Verna [facility] Body height 2022-11-13 12:15:00 167.6 cm [facility] Body weight 2022-11-13 12:15:00 95.21 kg [facility] BMI 2022-11-13 12:15:00 33.88 kg/m2 [facility] Systolic blood pressure 2022-11-13 12:15:00 142 mm[Hg] [facility] Diastolic blood pressure 2022-11-13 12:15:00 66 mm[Hg] [facility] Heart rate 2022-11-13 12:15:00 77 /min [facility] Body temperature 2022-11-13 12:15:00 36 Verna [facility] Respiratory rate 2022-11-13 12:15:00 21 /min [facility] Body height 2022-11-13 12:15:00 167.6 cm [facility] Body weight 2022-11-13 12:15:00 95.21 kg [facility] BMI 2022-11-13 12:15:00 33.88 kg/m2 [facility] Oxygen saturation in Arterial blood by Pulse oximetry 2022-11-13 12:15:00 95 /min [facility] Systolic blood pressure 2022-11-03 15:35:00 154 mm[Hg] [facility] Diastolic blood pressure 2022-11-03 15:35:00 86 mm[Hg] [facility] Heart rate 2022-11-03 15:35:00 86 /min [facility] Body temperature 2022-11-03 15:35:00 37 Verna [facility] Respiratory rate 2022-11-03 15:35:00 18 /min [facility] Body height 2022-11-03 15:35:00 167.6 cm [facility] Body weight 2022-11-03 15:35:00 97.523 kg [facility] BMI 2022-11-03 15:35:00 34.70 kg/m2 [facility] Oxygen saturation in Arterial blood by Pulse oximetry 2022-11-03 15:35:00 99 /min [facility] Systolic blood pressure 2022-10-19 12:35:00 159 mm[Hg] Provider Notified [facility] Diastolic blood pressure 2022-10-19 12:35:00 85 mm[Hg] Provider Notified [facility] Heart rate 2022-10-19 12:35:00 94 /min [facility] Body temperature 2022-10-19 12:33:00 36.78 Verna [facility] Respiratory rate 2022-10-19 12:33:00 16 /min [facility] Body height 2022-10-19 12:33:00 167.6 cm [facility] Body weight 2022-10-19 12:33:00 96.616 kg [facility] BMI 2022-10-19 12:33:00 34.38 kg/m2 [facility] Oxygen saturation in Arterial blood by Pulse oximetry 2022-10-19 12:33:00 98 /min [facility] Systolic blood pressure 2023-02-15 15:53:00 132 mm[Hg] [facility] Diastolic blood pressure 2023-02-15 15:53:00 73 mm[Hg] [facility] Heart rate 2023-02-15 15:53:00 74 /min [facility] Body temperature 2023-02-15 15:53:00 36.44 Verna [facility] Respiratory rate 2023-02-15 15:53:00 16 /min [facility] Body height 2023-02-15 15:53:00 167.6 cm [facility] Body weight 2023-02-15 15:53:00 100.336 kg [facility] BMI 2023-02-15 15:53:00 35.70 kg/m2 [facility] Oxygen saturation in Arterial blood by Pulse oximetry 2023-02-15 15:53:00 100 /min [facility] Systolic blood pressure 2023-01-22 15:03:00 144 mm[Hg] [facility] Diastolic blood pressure 2023-01-22 15:03:00 83 mm[Hg] [facility] Heart rate 2023-01-22 15:03:00 97 /min [facility] Respiratory rate 2023-01-22 15:00:00 18 /min [facility] Body height 2023-01-22 15:00:00 167.6 cm [facility] Body weight 2023-01-22 15:00:00 95.2 kg [facility] BMI 2023-01-22 15:00:00 33.88 kg/m2 [facility] Systolic blood pressure 2022-11-13 14:08:00 117 mm[Hg] [facility] Diastolic blood pressure 2022-11-13 14:08:00 70 mm[Hg] [facility] Heart rate 2022-11-13 14:08:00 64 /min [facility] Respiratory rate 2022-11-13 14:08:00 12 /min [facility] Oxygen saturation in Arterial blood by Pulse oximetry 2022-11-13 14:08:00 99 /min [facility] Body temperature 2022-11-13 13:38:00 36.39 Verna [facility] Body height 2022-11-13 12:15:00 167.6 cm [facility] Body weight 2022-11-13 12:15:00 95.21 kg [facility] BMI 2022-11-13 12:15:00 33.88 kg/m2 [facility] Systolic blood pressure 2022-11-03 15:35:00 154 mm[Hg] [facility] Diastolic blood pressure 2022-11-03 15:35:00 86 mm[Hg] [facility] Heart rate 2022-11-03 15:35:00 86 /min [facility] Body temperature 2022-11-03 15:35:00 37 Verna [facility] Respiratory rate 2022-11-03 15:35:00 18 /min [facility] Body height 2022-11-03 15:35:00 167.6 cm [facility] Body weight 2022-11-03 15:35:00 97.523 kg [facility] BMI 2022-11-03 15:35:00 34.70 kg/m2 [facility] Oxygen saturation in Arterial blood by Pulse oximetry 2022-11-03 15:35:00 99 /min [facility] Systolic blood pressure 2022-10-04 14:26:00 149 mm[Hg] [facility] Diastolic blood pressure 2022-10-04 14:26:00 76 mm[Hg] [facility] Heart rate 2022-10-04 14:26:00 78 /min [facility] Respiratory rate 2022-10-04 14:21:00 18 /min [facility] Body height 2022-10-04 14:21:00 167.6 cm [facility] Body weight 2022-10-04 14:21:00 96.843 kg [facility] BMI 2022-10-04 14:21:00 34.46 kg/m2 [facility] Systolic blood pressure 2022-07-26 13:22:00 135 mm[Hg] [facility] Diastolic blood pressure 2022-07-26 13:22:00 78 mm[Hg] [facility] Heart rate 2022-07-26 13:22:00 85 /min [facility] Respiratory rate 2022-07-26 13:22:00 18 /min [facility] Body height 2022-07-26 13:22:00 167.6 cm [facility] Body weight 2022-07-26 13:22:00 97.523 kg [facility] BMI 2022-07-26 13:22:00 34.70 kg/m2 [facility] Systolic blood pressure 2022-02-15 14:59:00 131 mm[Hg] [facility] Diastolic blood pressure 2022-02-15 14:59:00 70 mm[Hg] [facility] Heart rate 2022-02-15 14:59:00 81 /min [facility] Respiratory rate 2022-02-15 14:59:00 18 /min [facility] Body height 2022-02-15 14:59:00 167.6 cm [facility] Body weight 2022-02-15 14:59:00 102.967 kg [facility] BMI 2022-02-15 14:59:00 36.64 kg/m2 [facility] Respiratory rate 2022-01-11 17:11:00 18 /min [facility] Body height 2022-01-11 17:11:00 167.6 cm [facility] Body weight 2022-01-11 17:11:00 100.699 kg [facility] BMI 2022-01-11 17:11:00 35.83 kg/m2 [facility] Systolic blood pressure 2021-08-24 14:24:00 133 mm[Hg] [facility] Diastolic blood pressure 2021-08-24 14:24:00 73 mm[Hg] [facility] Heart rate 2021-08-24 14:24:00 69 /min [facility] Respiratory rate 2021-08-24 14:24:00 18 /min [facility] Body height 2021-08-24 14:24:00 167.6 cm [facility] Body weight 2021-08-24 14:24:00 100.245 kg [facility] BMI 2021-08-24 14:24:00 35.67 kg/m2 [facility] Oxygen saturation in Arterial blood by Pulse oximetry 2021-06-07 15:30:00 96 /min [facility] Body temperature 2021-06-07 14:20:30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 Z5tgobEKBqPTYluPsvLFOp ML1buBhhwX7pHqNcQwSfCO xqQN3gWKGcH9cqiCElZWWs JQEjN2kmYrFabF1jnXniVD xjZjJcZnMyMFxwYXJccGFy XHBsYWluXGYxXGZzMjBcbG FuZzEwMzNcaGljaFxmMVxk UfYoKAAiGSmoV5yvDdJkD1 PhQHFqBgQgqWOlI1lrAXpc HFV2LZIaKF6svYBuMY43sZ Efj3rtQFonqPobvz4jF99f xAHqMVpddXetOLNzz92gi1 LyWTWgrbWqzy1pRTQkehK8 fF9kOXYbvEdiAVZrmUBfFL Kxd0ZuBZfboXQpojKrQKdy WYLsLMFcdUKzxjG2nsPvbb YyqoTeEDKqkGvnPMSdu0Qz NIYiLPvhi2Fzjf4lmRYcYT IvpyWCeOzleGAxiY3rR5Oe EAQjLDXhst3oSAEusL2qDP qwj0GabpwbVBWnPBDrEDXo xuBvua0nIWXswKNYPZ8HDU wgrWNzm8ZwhoXtR8qUWLR3 NUQwNjYwMjgxKSBleGNlcH UzPTQbvv41HJAwsS3bzSlp GFZbvP6moO3heNfvoK6sWi JkJzObYYdlSZ8pLBPbN3yx mRCcVLNeMDDbB4vkXrCqcO 9jaFxmMVxjZjJcZnMyMFxw YXJ9fQ== Embedded Images (test code = [id number]) [facility] [id number] 19:23:05* Test Item Value Reference Range Interpretation Comme nts Case Report (test code = [id number]) Surgical Pathology ?Case: [id number] ? Authorizing Provider: ?Dominic Keita MD ? [...] HPylori ? Final Diagnosis (test code = [id number]) l0yzjKJxRBVhl5ogMQUftT FuZzEwMzNcZnRuYmpcdWMx SGaqosLwHDplxLphJRE3UB GlBI4aqAwflEn5bXhlSBWh beU9lHRoSFflc8hqHVG7i2 fkbwzsAAJeMHruUi3wrVVe oCieFqBlQBHpDEl7oM34GA EwgG6cvVDfNLj7AICjmZQb mnNjTwQfSRDiuNRgsJH7XM GaMA2xczvpWKtnJRvvVKOq pgX8DUKcrCPtY5LiDLZvVC 4kfaphVSL9USjkHGLrLAJ1 CvUfNJExv6Vhtda4XqGoqA FyZFxwbGFpblxmczIwXHBh pyCRKlBWFY7OYKNVTFLVW9 sMPVUNHL4PKGNSKadnkTLr GSFkBEKnPVDWEJ9MSKKoW0 nFKdHwTW7BROUiCDBgoKEw YWKpccNLCsDXFZ4YFR1YDE wgQklPUFNZOlxwYXIgICAg EYSkEAlQG0JMERRbVBFBP3 XWEJjJLPxoBm2xFWCLAO3E D4rVV1ZKFSZHBF0YGCgwVZ YeJRSvRESgXQ0WCFxfNOFT SO3VNBBKGZGCQEwEAGSWAA TTYJgTXTAOC7IVHQpJOKJx lcwdDYTlOe4bU3CEAGRWGM wgQklPUFNZOlxwYXIgICAg YOWaBXKLN0MGLrMNVX5DP9 4AJJGYMMEBGB1QFUEPTLpH IK4BGKSOJZWTMMXRG6KsvO FyICAgICAgLSBOTyBFVklE DH5GAZNFFpJFTSkMEJNzRI lTRUFTRVxwYXIgICAgICAt NJ6FIQfgXHKIMX2NLMEADk dBTklTTVMgSURFTlRJRklF ZXNSHLPCAU1SQp4YRFMSCa xwYXJccGFyfXtccnRmMVxz d6RxO2RyUyNwGUmihxVqEK BsUhanubpnMONzDWY0klBa WHWjCDvrSFBnEWloTo3geG DjtMhpGrUwUIEld5zwoqNQ AZmqZcYwS683AAQxCWxms3 uev4HvHMBrnHLyu2V5CKOX ovxafGb4l8xmCrWyOvK6sN QmMWweG9mzapSzhSIfZ0La rNZfsAo8cRrqU07ee8C6Tw yzD0bwHJJvLTZuN3DkEX2m FTLeWtm7XJZ2FDH1ZGEaSS NyT4NjLR8fABIwbCLwZBg5 v9svbOnoCUFyZIN9k9llCP fbqoS0MP4sux4orNx5q9zh czEgRGVmYXVsdCBQYXJhZ3 QirWltDs2raTa3oJesUyxl TST7Dtk8GF0ssc32nac9jV cxOGBkvxqcYvG0JNmzTQEg mrnxFRl1ZRdsYBUfjMD6OJ KwhIErG6BlGNIpJW3kokn3 GUT9TZhvPSFhLwL2YCKhbQ PjDFTblChnRDlhn362KKS0 UrPbIE9bE3Cex6D4wW9iqH DcAOCnxQTsJzGsHTIrhi8z nJRqEWsbn2ZyKBO0pgK8nK JkcCUzGDDzWX39Nceyy4Aj NlclKES9ZTOgfnIqz5Pdj4 mfBxJqkcYpY6xvQ4ZuBXTh HKFjQHTpSkYadwVye4Pyo1 VerOAaxWp6y3msIIJdOULg pImeq6qcVYH1ERFlQ0Y3oY Nme2kyKCfcZKXihLS7azL9 CDMmeHTfM6UmhB1zPKGfDW 1whqi5d7zoOVW8KJzkKSXh KvC1koC6AEGypVKaOZOzyD evEZfdb996NMB9UnTqEADf r8KfF9UmxTpuS86jdZjaO3 2qERBtuIbxxV8buAxdvK8g ZjBcZnMyNFxxbFxwbGFpbl xmMVxmczIwXGxhbmcxMDMz RHdcK6hdJmBvAOHzsDzbTE lfg5TlOLJiSZAvMsvavjMm XHBhciBJIGhhdmUgcGVyc2 9uYWxseSByZXZpZXdlZCBh uOonl4UgT3zyEH9tF5WhsQ BztlShjmRxSYsmSWHas9l0 tOLftQnlb0IvgNIdID91uq MrBVBgCNJ2XTDtq7gbGT03 gdhnZnCjfL15dpLhofFuFT Zwz7mgI4iafKYlz9Cyv4Om dnEuRMnzu7RgEQ8vuMUtyw gsfQI0UANxjCXccrWdfyR0 sZzoPSXbsW6slN2xwBglwV 4jLxWbXkNwLOmjKA8lLQAp R7fjsVAcJZFqOPImJ4qzYm DplH3yuDwiGqdgmzW7SDNd cn19 Clinical Information (test code = [id number]) Shivani Schuler is a 47 year old female with IDA1. Gastric polyp x 6 r/o adenoma2.Duodenal Bx, r/o Celiac disease 3. Gastric Bx r/o HPylori Gross Description (test code = [id number]) f7gvfEGrLARkdLNVWRG2FG EeMT6uiNrvxWk3nJxnYHLw riK5fYGaGXsfn3kfYLH5f8 foclCDYgvdECRdXZ8pCBjl GKUeGW8yQqCtXWVbYbUuBD BhcGVydzEyMjQwXHBhcGVy pLR0ABErEJ6nwsfuCTjzXE hcJHXpdbC4LBCiyRGoO8Kw EJMfGB4nrzspSXY7NDFBVp oeQv6vySKyaYqrEgWiItKa YXJzZXQwXGZuaWwgQXJpYW e0pW7XJitcZZG0GSHRNmnd FkjnzAfbv1RugAHvZHUnLS xcaWQgNTEwMDAgXFxkYiBP JuWpKhC1Jiq0QIN9PmP8XI o5ZJAMQIWxLnzzEWD7NxV1 FVk3LYQaLT0kOLvqxWNxKK noXlglFQpnD929BShpCXIq D4OfI1EnIUwxZxXtWRwcIP RuEYWvUDhyUZQwO5PSZCJr VKE4NeMmPROoMTp3XWjsT0 RFVLIeETFvMhW4RAOsTtW3 ZUm0BMZTDa7vMIluHoUgSB s9FXB1TPy9XdCcJFGiLyHp FOQvFNUjRTmvqROjHN9yiB gxGSDjMY8EZMFnFWgeZNPc QdReQ4HPW3yVBU9fOEvvxG JjaFxmczIyXHBhciANClxw YTDjZM8UOLLwIJlrCMf9ej HpHGMrPaJqDYHuY72ol3TB x3HjPU1MNJc9lxNfblcbwX 2yVMLmyjIaHOoQsNXycJ3x vrASUEkaNALaZ3HzmzPdSZ pmIECujv4chFrrLXarDsNr bGVkIHdpdGggdGhlIHBhdG kagiSeX8Y2xmSdWP5tVZLN GWFaoF6fNVUkKGTbe0NhuJ LnkJgsD1EwbEDpCnDcv3k0 fKK6CGXuapSkQYRwrUNbGJ Ornu4jPJfjQjQaX1M6VLFn GRIof88piHI3lrOrLiPtuF f4qBUfUWO7ID9bwGlbzsMw r1b1vX5tSUYpe4R7VHLss4 G6XFAgtaMowODboTPpDIFn WF5zwmGoHX25TSIuBJpaOD jfKUI1XKM2DSQozNCgj8tt saewQj5hAGpqKL4rMGunUU 82NUTyCCscPTVwH3ChQ8P8 ETqmNPGkBWIvzUCmbA5yng ZjccJavTf7TPOoEJV1bXSl qBflYIHyAolqyED3BAKyXt ErnpUet0RugHu0mZSnKKws CRBmaV6nhW7aMMMhXHHbef WWGvjiQTGqQNqkq4XuEVzf cGljWHNhMzAgDQpcZXBpY0 1mj6ZLb2Ajw7ubcMyer1Dn xCMvZL2rbOJqMW1Av7wtLN BphGLvQFK7TMiwu8ykMCtf MXJ2IAPtAeYzMPRtAI5CCf HbQPcrIUk4KDpcGQb0XLp0 NY9RVaWvGNRxIlq8NwI3Ls BdEEl1LIjaXV9HVLJ1VHOq NIWyYRbnKOH0TDQqAYa2QI IgXFxzcyAzIFxcZmwgXFxu J62mlQYuQAtxUkQwKPqinK lqACJbSFP2LS2HUZQsUiMn N0PCB3tGRY8aMjmnrfYsXS IrfzFIOmirYRMaUI0HWZYp KZtpIEz7acAhPWQgIgPyFQ JdG03lv2OXm4JkYB9JGBq0 wkFkzvonqV4uPEXesnVvz2 IzMFxlcGljWHNiMzAgDQpT wUIprF4mrsPXZOhqUPTjN2 HmhtPzDGhiVDZsuk5myGyw IGxhYmVsbGVkIHdpdGggdG alLRHcjNexkmTlL7N2gtYv AE3vHRTOWIPraZ2ySXIhBK TwIBNpJNWpwU2pKIJ5g9Ur jfMhZGUYKRVcaCumPP37yH BjZWxpYWMgZGlzZWFzZSBh zqKndzQkm10qybUnn5ThIL 1bpEsqJTlUWSwiIgJdCG3i ICGuqeDvz5NmJZ1uGEGjoE CnCXKppvflwGGlZBb3sNQt ANWpAkQrsDrve9DdNIExGB nfIZ53dtQmGB9yMQlvDP6t XLncUV8vVMLkHNDoARPcOv UtoEVyUnMhxILhBoJmZ67m VnTUzZOeb7TvX8oaSX1uyH VpKguhhMFlLAAopXotn1Xl vAZtGFQbn9BdrSXdQNlwWA 0sNKO4In7qrRGgHTJvcqG9 m1VhRLquETBfIpufLKPeZB wdd1GhKITibDVBz0XsDM7G XHBhciANClxzYTMwXGVwaW HXc8ByGTGVYycduArjOuEw gVNiLyW5OKQhbAIlDDF0EB 6qgBiiYXMtKFk2BNoiDPTp F6VvU4YbDNpkGsYhEZgpHQ XxZIKeOColKUCxV1HETZOs RJC5RjUnSKTmZEy7UPkzR5 RYLCTcKNFwFmN3CWY9OcQ5 AOf3WLAKTw5vSYsvZaHaOY JtEsJ8PWi6TrZpDZAwWtXk QVZnILLoPOvdbZYjFV7rrB tkYCQaMEYeQUT2PIWubONG s5ToRISuPTkbAjMwZKNBGQ YKJT5MTcISDMVhQuQabNTg YU1KNQNnftJuHRxfgSxqaG 6hcTJfF5unDdQuDzyesDnf TmVzdERvYzEgDQpcbHRycG FyXGxpbjBccmluMFxzYjMw RQXluTZHe5AqOWNHTiBkZQ NpbWVuIEMgaXMgcmVjZWl2 PIXgzZ2kBf1ngNDboO6ktK TpXRydKFDvt3r8eIO0iQQn zSW3dCQngNzwEjIvES9arH QtBNVIQT82iSTbydBdLHOr lN9kPDJsKJUsPLG5rfjcZK KVFEH5eTUol8D5RIvkUXS4 aJ8rlNjpAzGrB0F8VXMaUS Ouo35ahRP9boCiFqZwXWNo xc1abD6nBWjykbSaeUedbd Fio8U7FTGco4L1NFUakeIr kNOxtOWhERYwAlB1PCLsNm P0IKDbACRxbIAiZHKsPD4g VGhlIHNwZWNpbWVuIGlzIG UgxRDckkHpRZJjod95I9oi VUXllH2za4bhJmQfDOYuAO DamDXzyGW7QBVhfF2kcD55 kkCireTGPK2oxBDxMF6ZQB NiMFxlcGljWHNiMCANClxw SRCzFRtxw0BtROegoQvuIA ZrQnIeWBoYsZfvRUTTG5yl sECuTWoaLJEQZIzRB3BIWA 9WFYGiiTWGGNC1KB2eSEqq MYGlK4XiS0ScqiF6h3ggqU hzs9MdfGRtMQ3yaRBwHI3G XHBhcmQgDQp9 Disclaimer (test code = [id number]) p4hmgYXyZJZqh8uuVUQaiW FuZzEwMzNcZnRuYmpcdWMx HEhvtcMnQVzcu7TxF2EqEk AwMFxhbnNpXGRlZmxhbmcx ZIBeMWU6pqMoVIQpPUmtUM WiYCtyRf9nkRQtgEerXcHd TMObf7avztKMPPoaVaJgI2 60OZSrZPijr7swu8WwHNBp vNQgt4L8XYFXrapaqXy0lJ bdX64xz7Y7SggxJ0gaWYEx GHTjC5PiXS9qCYRoZru7AW Q5YCK5FFBdCRXvL5CjFU3n DHAwoJBhEPa7v4ttaYzyID TxPZH5h1clHUpsrfXnMT6z cn4evKt8k3smdqDdUDFlHS TzbTUVRMMnM9UalBgiPk2o kRq2lTarKnxbPUL6Jmg7MZ 1bxq97qfk4qRquOSKbydsi IxZ8GBheAJDbdavnXSl6XN igHWRvsME9PATfuTMkT0Fn AUBjUX6hcgs2DPF6TKevVI QbMkH3LXAhsFLcCPDmsQmk HHdic822XOB2SoHcYW9hW8 Bsz8Z8pT0dlCDwQBHrcITf VvDqRNZade7fxETrPXylz9 ViIJN8msX6yQUmqPNvPBDu SA46Sagkc8PwMjliw7JkJ7 9haVS4OUgrm3cdQE3tLpC9 emOnRGdgc6pgzZ1qPqS9FX asUX4bWB1aMJZjvN2tlovt XHBnYnJkcmhlYWRccGdicm LmMa9utFqlDYE5UDysE3mc sW4yXuM7NLrnH3ysaX5tFJ c6HAgqhMN7FAAegF9fHO9g selck8htLJqrTNxxIRGyni K9zwC4KHGqaOTdH0CmxG0t AGYeQG5qpijqe7baSTF8CB vcCJXmWNQ9NqNbBSAaz1Ns irz1HuTuf5DibRWnLFhlZ1 0jq360NBWraeLvW3thhFDf xpbghTTpxqmmWQyavyO9FH QuttNnc2QaULZhECW0HCfv IQcdaMFqSMPhpVjjb7shO2 RscGFyXHBsYWluXGYxXGZz MjBcbGFuZzEwMzNcaGljaF diUAkcJiSnMBSzVTkcH2tv JjPsL1RxJGJdVfXjcMKqQ9 ggVGhpcyByZXBvcnQgbWF5 JJgqC6s1ITLemsJqeQw0kf DvUeYmVWLhIBE8HRumoBRn GIKlg7BbsgnlbOFnUe5dcM XaVLLwtX5hBAExJZGbDJcn FO3kyJc3CPZOqCAofNOkAf JHGZLhFF39iuAnQMFCuxtg e2R6QTdzMRFsg0YieOUvP4 ypo5UeXNTul65qLT2pg8J7 p8ftLZX4AI6ya5ZaJBSzpL IsrLLzEICgk2Epkcxdl9Cu FGVuhiUhj4PvZQEmwdQveC GkFCOmbuLnus6rikGrXKDz MGLsX5DiboyopIdhrpCkYZ Jevm9nxgMwPCA6XHSJLIJf MUDos8SrpT2fjSZMHOQ4kP Prhv8mgwVCtIPvXQJjsu17 YXSgVB4aZ2imHERiLHSuwh QmpHMmr3IoAPEzcWL4xQPn IY4KOjRQs11vLOSfQKWDup GyDJHfiQypiXB1giU8aF2a IChGREEpLlx+IFRoZSBGRE XlPO8lovKlu9GfudSoiNaw PVObxMBem9JtzTLif1PeoG lfo3HxkIMuuYBvLS5sFXKo clxwYXIgVVRNQiBMYWJvcm E5z5SgKQYnIMOrQTB7cYmo xwk1ZUWpsF4uUZYxZ4gznc brUDcgDWBhs8BcqN7evQKC pKVdh9MtiATxcSFWsHTeIT 2onoAsGCbZCOoPXFV3icNn AGHjm7WtBNfwC1ziA07vcD kszCd0pAZ2UPR7zX6tNqs+ IFxwYXJccGFyIEFwcHJvcH KjBIUpuMkjmyRzP9QgcsJu oO4vuONureUbAE3dAO4dX4 D7iIYkHPLtgwGht7dpOOkz dmUgYmVlbiByZXZpZXdlZC Lha3PxCEixYOM6TLxszxXs bmNsdWRpbmcgSCZFLCBTcG VdvVWvIZO4CThqbvLicdUi OH3zkA0bpDaoeB2ppOPgcT K2bsyxWSBiCPBzhAtuPITv TS0maXgsnV2xWoOyOaKiNB hnMB7oXVUrR8kggBJmOXTi CWOtR4qoVjAkeU2xxDinPA xjZjJcZnMyMFxwYXJccGFy XHBsYWluXGYxXGZzMjBcbG FuZzEwMzNcaGljaFxmMVxk ChOeSSPqVZstD3qlDpDqX9 BdTSXtAnZmgKYsQ9gwVVue WJS6OVOyUF9grIBuFI52zK Hgi8bxVQqlcClzuy6jK79u eQVvOVlvgOcoSHHku66eq2 UkOVDiizUfqe3uLTNmriG9 eC9nTNGjbKyuIKStuICxCS Ips5RoOLyafMRwpfAjBYqo AUUbERGgnCWujlV1xvGwam RetpRkDUKeeAecAQClo8Sp QHXeEOkwh7Kbwv6mdEElEK ClikGDxUzysLBxzW6pB4Aq RQMmQJLrbj9jMPUnnO9gGS tdk3ArdcdlERIgMTMxNYVp ngKupn9fRDOivWNSEQ4EMH abbVXvg1PnuqQeT9lMMBE3 NUQwNjYwMjgxKSBleGNlcH MfXXHyum13KRWwoJ9zaHfy PCRtwR7ksY9uxIwsyU3nJy PdUtGwLTkdPV3wAGJeP4se dKLgUXFzRFXhY8gcAuVrsF 9jaFxmMVxjZjJcZnMyMFxw YXJ9fQ== Embedded Images (test code = [id number]) [facility] [id number] 19:23:05* Test Item Value Reference Range Interpretation Comme nts Case Report (test code = [id number]) Surgical Pathology ?Case: [id number] ? Authorizing Provider: ?Dominic Keita MD ? [...] HPylori ? Final Diagnosis (test code = [id number]) d6nyoJQjDDZcw3wmKZJysR FuZzEwMzNcZnRuYmpcdWMx HSnfsnLzAHpfbJloKLA0CF LnCE8yfGwwiGo0mAuoYNYe piA8gPTvINujx1odKJI2t2 xczmtrKKTtEOefWw6auUMe sWyzFkXtUOSjGCr1tY29WE WjoG2udEAqBHi2AJNacHIf jgIuKaXkIRGelUYoxAW5KZ HsRY2ctqvbSLieGVrwUJAo gjN4ULJqdOVtD2FrOJBgSF 8tfpvkJFB6AIzzGHQsIWE8 PjTaFWLbn5Yzyyf3SsPsnY FyZFxwbGFpblxmczIwXHBh hkWXSaHJFR9MZFMIOFJEH7 mXYQHYSW8SYIDFIhqhsFLr CHWlRJPrISWOFS4OHJTsI2 jQQsKyWJ5VHPLePFAvoVYi AZRkoxTLBqRNGW4CMA1FZK wgQklPUFNZOlxwYXIgICAg KNAoBDiNF6JMRWGdHLBIC2 HWSObYODwmPi8cZAXMCI8Q H7cVT3ZAPWRMET2LLRszYP WsXDUsHFHaLE6CUAdeNMKC OQ5RMNADWJRHXZmVCEPTQC ZNHZuRBDWTI4IVBThROFPj yjwaDXKgAg3vR1PWQSEQAM wgQklPUFNZOlxwYXIgICAg PYMiLRTVB8EWOjPLAU4ZZ4 3PDXJLWTLZIK7ESOGUGDuZ YT5EJMTSWKMMMRTXP2IfyN FyICAgICAgLSBOTyBFVklE DF7ALZAXXrGCBYmGQKXrUG lTRUFTRVxwYXIgICAgICAt DG6JZQaySXETCM3UXSBTJj dBTklTTVMgSURFTlRJRklF RVTIEJTKMH4IHn8VUFHCTo xwYXJccGFyfXtccnRmMVxz b3PyP7GbUuCoFFwqsuVfIR SzGbiudxpzRLXlQIJ4sfSn NFFkHQccOBSrWVfjOp8ljM LmvRluRyKrDQNsr4uyqdTG KIlzEuJvP819VUNmNTbpj0 mvf9VuRZGyuLOri9M4HRWJ cpxnyEx7h7bpDtJuPjX8hP DcIUauO1welrWtlSVuM2Uo cTQhdAf8uDoqY96jk6T2Ly ljV7muEGOiJAAwH7YyLH0p BPYiRmc5SEA9ZOL4GMDhHI PgC8DzIS9nLOQtgZVuFXo4 u9sttZtdAMRnIRN2j3gbTP kezkJ0MH4erq2ztAu9o3qk czEgRGVmYXVsdCBQYXJhZ3 BckUmtZm3qxTx1kIbxNkat ZZY8Leu6IU6ude38cdx4cU nkDAUxovtjTfB9QUliGBHq dytaFCq5IEwgAYEpqPF7AK AxjTMgX3FuMIIpHW1ahbj6 ZXM8MWibVOHjPuE6BYHcgA CzROExrWbcMAklb194EXJ3 EeJxNU2qW7Grl9F7lC5olH PaWDGhbLNwRcXqPYEvrh2d yCSgLBzzt6AdCRZ1ahN1iQ KpjNVlNIIuWJ94Jrxvt9Es CbtbWTK5URIvekHor0Nid3 baCbZgdmOeN6fmA8JcXIJy XFMpOCNnHiYppiQhz2Usj0 EwwAOyhPu5b2hhZMZtEWTx xDihf6xeCCN5QJBdI3F5pC Pjy2bpRQgeAKBizHZ8pfL1 ANHyjIVuX2YmgP6gHFDxJJ 9pjac7c0pdBGO9CSdwXPMr IgS7roE7YBDahDUlZPTtzE poGLfve415URO3VeEbLXWx v6GrX9IdhMgaG87nyLxbK4 3iHPRdfHlbkT0xeDwauD8r ZjBcZnMyNFxxbFxwbGFpbl xmMVxmczIwXGxhbmcxMDMz QWatH1uyYfYcJQPflEhcOY bim5YlGLFeGSXwPadhtyXh XHBhciBJIGhhdmUgcGVyc2 9uYWxseSByZXZpZXdlZCBh eXjzw9YcU2wjMX1sB1YeiJ EtdqZvmmWsPDhmPWBqa9k9 oUGlmEuhm7WzxSDsJR20lz RzGTLnVFD4CUExg0pyGU97 fewoCxIfcO59rxOjreQhFK Uzh4tfX4pgrOSet4Wpq4Hp aiTcKLfxd7KpGF8jbWDsqz nnzAZ0YTSsvDXkjzSnweJ5 zEvmQXNppY6qtO1tlTjkmS 4gDqYwNjBfTTapPI1zPHQh I1gecCKdHBQkAMVdQ0ujIe UuvB9fmJivZqtwbfC3MGQu cn19 Clinical Information (test code = [id number]) Shivani Schuler is a 47 year old female with IDA1. Gastric polyp x 6 r/o adenoma2.Duodenal Bx, r/o Celiac disease 3. Gastric Bx r/o HPylori Gross Description (test code = [id number]) d1zbdBYiOXPhdFXATHJ9UB GpRG6hnHjpxPt7nWerEQQu rlQ8yBImBBaax4vlOMN7u7 pwqxSKApmdUCRmNM5aIIrj QQUxFO5oNlLrLUMvRbPtNG BhcGVydzEyMjQwXHBhcGVy jHZ0LPIqZA6knmxlEJhiFM loFSUkhnI2DZBoaPGlI2Lj LZUtIE0jpspgIHD8KVNTLe glZf2uiJCcsWyyKkHnQmGb YXJzZXQwXGZuaWwgQXJpYW n0sN7LGsfaVDH1AXBUThcq ErtqdDoqb3FavUTjYEWbNW xcaWQgNTEwMDAgXFxkYiBP HkQbNaO5Ogp5HIZ5QlW1QN r1VARATBVvXcijGJF1MmU3 EHq5XKQyXJ7wUUhdwFDaOQ ofPtxkOTctK342VTjzFGGz G9NuB9LzKUqlQlEaSAmhNP QqPBOgQUxnEYLuW8OPGYRg DWK4GdWeDMLaPRt5VSqhL2 SYSOAtTGCvRaC5HQYxJsH7 WRu4SUQKTg2cDAlsSgAvYX a2ZIY7WXv5IlYsUZPjBgCc UUKxEAUvSTvmbYHlDR9xiP csYLZdBV1TUHSdDAajJKCm ZfKjR1MPL3eOJT7mVAkahJ JjaFxmczIyXHBhciANClxw JDGjAS5YMDRbJJtoWYl7wf StDRFkZzFoBEXsA18mu2YO f0VsPD7TWRo3nbVbkgcraQ 3kLTEfthNoWTrIoURmhK6w jqZMFZmoSUZyE4WnqeZcIM vgDASdpy3xxLryLXfwHuAq bGVkIHdpdGggdGhlIHBhdG grheZmC4H9taXlMV8kEDUW IPQexT8kJHOhCEPnm4MrrH GnoQuiV2XmjXFlFbRsv1o4 gML7EVXntjWeXLSvvJIlYS Pzdy7iKMozOgHdK6T7GNGh SPPpz01nbVP2tpLoZbJkrO p0mIKgABL7LB5mrQrmxzYw k6r4kB4eSRSqc6G8YWWgq3 A0YKKiwnMdvDKglHUgXWIh HL6pwaIlYP57BGDdDAvsCV bxTCP9NVR4AGYuxJSis7fa cwimGs0xNXwdBJ0cDWrzRA 71BKSvQHbvKJLzS2QsQ7M1 ZSwwDIYeCFEerSZexQ3jlk FgltDmdMc3ZNLiLCZ2rPEc uBbsIHGmZavnoXE4UTSgEf OwdjOxc1BqpTh1zPEoSBqs WRKttD0gsM5dJWOxNPDxfr XAYedvULFyTLjnv4FqBRjf cGljWHNhMzAgDQpcZXBpY0 6mw9CWv9Kpa4ftqMzzb3Km vLLlCR8bpMZwFX6Zd1rqNO YirJIlCCQ0RJopi0yoAPfe FNG0NZYjIbImCNGwAJ0TBn DoUShiBBv8YZdoEHo8VPd2 FK2QCjDiIIGxYku9NpT3Zr UbBUa1NCheTX6DTSI0DROj OLJeNWmaAOP4WPQfTPi2QJ IgXFxzcyAzIFxcZmwgXFxu Q72cjIDcDEowOuZuPItoyO alQBVeKFP0HW6FNQVnBnCx C6BLV2yETF3lCcahywDmHC DbexBHSqpdUYYzTK6ZZOSi HBxrPZb3zwMgLNLtRgUdWV DlE02gx0NIe5GoQQ3RXRj1 klVjineqwV9yJGJlqcFmh6 IzMFxlcGljWHNiMzAgDQpT qFMclU5caeONOPamNVSxJ4 UfvdGcMXwfSNRsrn5woGjp IGxhYmVsbGVkIHdpdGggdG guIRDpwEfdibYtG5I2omAs OE6pBRHZVOTtzO1wKMQvAK PqIHSjIJQfwH0sFEI2k1An tcVqTZGVCWLroKxvEK57bM BjZWxpYWMgZGlzZWFzZSBh kwMloiLqm97ftiGzn0TjGU 8cbNbgOGoWYTkaIpXxCR3o JPCyaoTtc8SlKO4sRITfxF NmDHYouxwdhLYoJEw3oXBn USBxRwNnsYoob6HxMAEfGY jmKT01lnDpMJ4qWOerER1f YOydCM5lYUFmQEKcROXhRx LlzINiHsQliANuVqZzX79z DoRVrBOqq2KlA0dySX0mgU MbIvuswDQqTMAduMyxc4Gj vALwPKCuf5EnhWTjRCehME 6tUOH7Wi9zqYWrOIImgwG8 z9RnKRknUIZrIlwtYPUtDG wir9YfHOKbbYMDp1XaXO3T XHBhciANClxzYTMwXGVwaW RIy8QdXZUSPirujYanIfKt uMAsYnS5KHZedVNsELT2NL 5oeRsuRWPsWEe4OXgqDMUi L6HqG0IuVTdpKfEeTLqwTG IcGWPxRMzcGIWwK1LSFARz HDM8QqUuRSQaGPj6RWyyN9 WCBGThSPNjBvR8IXT5DeJ9 XZp5WCYVEz0bFUbbHoKgVS UbVcQ3OGc7EsAoGUAnJlRl TNUkNIGhXWoqzRHeOW9hwA lbGAJqWDTxBQP8HTPtaJFQ h6RhKSRpKIlxVvUwBDJTBN MOJE2HVgMHHTYpFcEzaPSi CA1WTNWiofTzURjktTdybF 6giKUcF2dgJeMwXpdvvOkc TmVzdERvYzEgDQpcbHRycG FyXGxpbjBccmluMFxzYjMw JVFegHLRj4EhCWJYKeGgDN NpbWVuIEMgaXMgcmVjZWl2 QYJcaC6fTi2jpETopQ5laQ NhFRneCXRqd3x8rVY1gOBz fVN1cHXfmUwmTvIwBF1zhM OqTSQSGD49kUJmmgSlYSHk eE8oXJZpCUGvCLG3dtwdCR BUJPO7dKVva1H7YFdeSOY2 rI0hrTrkSrLgC2G9TLEcIX Qxx96agPM9jrJuSdDuVTIr aj8zzR3vWUshpkNvbBxuuw Gdg5Y4MSYul5T8PBTmutTp aXJcxJEwTTFwSpM3LVCpKd M5OORpRSGnoETqSOJcLV6o VGhlIHNwZWNpbWVuIGlzIG XjjHUtidSgABKlcm98S5zg CBMumL3uo4kdNnPqBKAcKV PoyTFmnGY3OPIucJ4ocL83 vgRwnkDBHS8rvLVxVP4EXO NiMFxlcGljWHNiMCANClxw LIJwLGkay8BiEEsxtUtvBD GsKjFkONrRpUvdGPCBK6sf fBUhMGioCYLXKJfBV6GIXR 5MVMSgdKSZAVY3MM1pBOar CEOdU7IlB2QbbzU9a1ydhK dph0WsmVFvGG0mnXWnXV7P XHBhcmQgDQp9 Disclaimer (test code = [id number]) n7ygdUOdVJRxb9lrPUOohZ FuZzEwMzNcZnRuYmpcdWMx QEyeouPtMVniu8LyT5JfEv AwMFxhbnNpXGRlZmxhbmcx RMWcFGO4tiJhARIvBSlbLN DhUKkaDf8ggCKlwKsxEpSm JADtf0wquhOHFEpvGcXyI0 29HSOuPZftd5ynu4KeSTEu hRTyj1G7LAZZhzkzqXb8wA wgO60be7C4FcmxM9mnZOAy UVVrN0RxBM8nNQEfRmp4JD O8JJL4LCBwLGGwA2OxNI9j JUHkpEBoDPf7q0votWdoFJ RpXXN0i4lxTKvjtcBtLX9n zv4lyZl6m8jjbvWfLDVfUD TtmKQCAIGmE5PaqOwbFr6e eJx3lSpaJdvqVON0Uip1BR 2loh83tiq9jIreBCMtpdym LhA3NCelQWJqnrglQTz1UT kbMCRtuOI8GXJnaMZsP9Fq PNHiXJ7mlkx3KKR6STmzFP EzQkW2EWSkfDPcJPEdkSzg VFowq056WXS2EhMaRQ4gT9 Ino0W8cS8bsICnHRUvaDUc RjMjTTPwru8yuIXmHVwnn2 WiAQW2tcF3lVLvvCLrQXKo ZJ21Hpnmr8CtHbswn9MtZ7 8acGB0BBtud6gxVF2uLnZ0 rrUjOXfvt1syoK9xAsL9UZ afKA0kUR9jWXAndW3cduts XHBnYnJkcmhlYWRccGdicm TfZh9ohDatMOH0AYaoC3yl zF4zYsY8PYngE9bxeU2sBQ t1MIazwUQ8DVCmoE4eRQ0l hodyp8caXWjrFWddAAZnff I5zvS9LFKizAIpF7QmwY8d VCZmLB1whmojl0paKXU8PU vvRCTaEHR7SdUbKIYgi4Ie jlo1ShElo1QocZMcQZbdL9 2nw769JTGwfmJeC5oozYKt ujnatHQjppdwRSyfaeU9YW PxexTvn9LeACAnDJR8YYnk WIhmrCWkUIYdxGalh8wmS4 RscGFyXHBsYWluXGYxXGZz MjBcbGFuZzEwMzNcaGljaF ynQZzwGuPvTSWrTBrbO7jy DrElS5IwVPNeFnKslCYvB8 ggVGhpcyByZXBvcnQgbWF5 JDcjM3b8SLSvxaDdzGx2xx GfLgOvSQZgVFU4EPqjiOQb LDLqy4VzlyekeERvNq9wvA GjGMIxtZ5oMWDkDBTsOJms AK9hxOl8MYLYaQYzgJFfEi BUPXBdYZ70oqWzWMELbwlb s2S5SOltOFBvu6DmrBHdE1 box0LnKNBup65xUC8zh7D7 a4kxTNG8WW6js5PrNDYniS MukDDtDPUvm5Zcjjchl4Ch RMSdhgEsg3UmNJNjgvIfxK QePJRzxbMepa3benBqNYId BXRkI6IboucajHpagrViFN Icfs1iorLxAPE7VVEWBEUv TBWiy4TenK7kxERTPYS9lN Joez3lmkLNdYEoNGCakd14 NNDkQK6vG3wwPJUaRREdig YhfVYku7VvIDTxmTR1cFIq SN9FJsUAq38vBQWrSUVZsd XmFIBcsUyyoQK1wvN2pR4w IChGREEpLlx+IFRoZSBGRE HxJQ8dceGff9RpbvLabXzz JOLelIAgo4AwaJTlb8DfdT san2GmoMQqvBGaIK3dDSMi clxwYXIgVVRNQiBMYWJvcm P4m8BxNWDkDQItXZM1lQoc xwy3TNZekP2bUYYzA6ygzq gsUCvbBZFfb5YjaB3lrWAN vSDnf0IebLKrkXAIrOHnFP 6sfwJxGNfCOKuCIEH5esLm WCSut7NsQQbeG0zjG51dfL cjsGr7hZS9MKZ8hD8nVau+ IFxwYXJccGFyIEFwcHJvcH KuPHIsfToekqWlA1TjizVq kD1btWOokfUaVG8zFZ3fT0 Q3xDOlQIJtpgUrd5hoIWlk dmUgYmVlbiByZXZpZXdlZC Eqy3GpIOjuANH5ZBefkvWn bmNsdWRpbmcgSCZFLCBTcG IdqZOhBFQ0URtimhIhwbBb NK8wdF8swOzsmJ5qxAGxhJ H9funcKNCfLZExiQrqTSGt LE8jyNrikC4lUhIhLkWqSU ouJU5tTZIpW2vbmOFmSUJx SRJvK6yvEsOwzD7wjMdpIB xjZjJcZnMyMFxwYXJccGFy XHBsYWluXGYxXGZzMjBcbG FuZzEwMzNcaGljaFxmMVxk ClNqKMNrBNmyJ2ghZrWsH8 NcDWNmOrGvlDZlK3bkHGtr LDX8IFEiWU0feWWzEK59uO Vna5cdHPzamTzvgf6tY74t gFKuKFgerRptZBXsw42lz9 QoPOMvnpXsdr4hIEQqhxA3 rO3kCINwzCoxPAKnhYUiBL Twf3RjTUzdzAFuodDmZYqd EWIlAWWnbWFbliV8mdAvgh KuzzTgRLIpnYqhPQFdz5Jf VANeMHbqe3Jdst7ggIAbNZ MehdQIeDbwfRWldD0zV3Je IVMhDYNtfj7cZSRuvW7nKT crd5RohzdhLRReGUPyJKQo drVjnh4bXYQbzJWVTH1ZPO bmsZMhv6RgjrGaC1sJLKA2 NUQwNjYwMjgxKSBleGNlcH UcAEZzfz69MPZziZ6oiMee SRXbkG3brA2xjJvdmJ8hIc QlBwZqHTqbMA4mEBSyS2kc fDWzRFOnNTRpM9sbTdUywJ 9jaFxmMVxjZjJcZnMyMFxw YXJ9fQ== Embedded Images (test code = [id number]) [facility] [id number] 19:23:05* Test Item Value Reference Range Interpretation Comme nts Case Report (test code = [id number]) Surgical Pathology ?Case: [id number] ? Authorizing Provider: ?Dominic Keita MD ? [...] HPylori ? Final Diagnosis (test code = [id number]) a7zvvRXkHBRwf5xvIVMwaJ FuZzEwMzNcZnRuYmpcdWMx AMuoqsFgXNtikOzaLAO3WB ZaTE5ywJoxdKq3eKudLHHs yfE6tIHmQWtwd5yaJDU3c5 mtkctxQFFkPElzLa3ueLLq cSpiKcVuCOIcNCw4pW28WZ DabY4kqPNjTSs9KGSyyPRv vvRoOkAlANTtiCVapDE9OC ZsAB1nkouwDTfcJUobVMNh chO1VQKbaMJpT6FqBFTqSF 7eimxrCXY9YFkwXXIhOZX4 WvJuYAUkf5Alsaw1IqPnzL FyZFxwbGFpblxmczIwXHBh fdXKVgSPCR8RUIDSKCNNL1 eRLTHIOU9TITGFDreukLGb QBIfDPReNAXJFS2TMUSdJ4 zOKfLuUV9KKTGbRVGjsIOc JSPnheUPXmOTPT5HOC6IPK wgQklPUFNZOlxwYXIgICAg YHJxMMlIM0VTCGYzNDKMB5 IAIYmRFLzrCr6gGWUEPL8X M0qAH8ZFBLQSKH7FSXjiTG DmJIYaVUYbOG0EGPvfCUOB UR5WLEVGODVFKNxFIRCTZZ IGQEkJCGSQX5GGHQjOWCBc nelaNLGaRy8aO2EVPNXOES wgQklPUFNZOlxwYXIgICAg IROpXJDIY5MXAcBIFE4XS1 8PQGNEGEZXJE1WHZAMNDkB AJ9VFRKTCIMXSPKIF2SecN FyICAgICAgLSBOTyBFVklE NC6MLMQHWjAVIPlWFASzXJ lTRUFTRVxwYXIgICAgICAt AU6QJFtaCTAKCF1UFZEYVv dBTklTTVMgSURFTlRJRklF GDOLGEOZDK3LCv4MTEXVYc xwYXJccGFyfXtccnRmMVxz z0FgZ2FhKkUfQFueyhDzUJ WvBzgkbskdEKEsFJV9ebAv DOCmOSwaLLRhNEguPk9otF HnpClpBmNoHCLzj1wgqeET FYqbRyUzG850KLBxRNqdw3 ywb4WdFBWaiDNpg8N2JBRG jyawgIe9v6ceJeOtVrF5jQ QuHZprI4mynvBsjZGdR4Qq cIZhbRk6zCsuK52kv8X1He ryB7tvZHScXWCwU5DsRR5e BVMeZou3IQP1MJS2MJKdZI CgX2WmQG9mWIZvgCIdQSw3 j4jgfPogZWPvRTC2u8yvRC egewW4ZV5nml4jpIb8e2hm czEgRGVmYXVsdCBQYXJhZ3 AdaNucGh7riWf8aCmjYcto GHG0Onu6VZ3hdc09erz5sO skPZBcdoobWeX9BXjzFARx mfgrUYw5ZKjyFBKvdQC7ST LbaSMyD4NjABBaRD3ffeq6 DUG1OYpqPLCpKxK8BRXxsW ScJQJvqAvzTCykv268IBX9 NdShOZ1rP6Chu5R2zU3lrT TxFEQvjJDnCiUzRIKzjp5f nUEjANrzf5OfNHT9dbU6bC DnbNApZBYiHY00Juree6Sq XedvJHS2LDIbmvCog8Ved6 prRgDoxtDdX2hiH3UuOBIo UDPmGXPzAiOuaeWux1End2 XbtANrvTu4n2ggKSCxCECg oFyow0irLPE5ONKzA7T5aB Etn3gyEFluTXNvxZY9lbK5 SMEkdQInO7QeyZ5fZCCfSS 6usiu5n5wyCUI2JEjcDNDo YtZ4jzN7BQWmfEZoGNBibC eyHFpzl006CLJ0VsSbYBXy m1PfW0CiqAkdV17maGgdG1 1nCAAnlIzhxK8apPfhqC5u ZjBcZnMyNFxxbFxwbGFpbl xmMVxmczIwXGxhbmcxMDMz NDbkQ6piRsTaABVhlFzkPG xey9KiWAXoLQJtNnrfjaLv XHBhciBJIGhhdmUgcGVyc2 9uYWxseSByZXZpZXdlZCBh sBimh1GsI4epIJ4wA2EnvZ OulfWasqPyRJxjXIQli9b2 xCItjYcil2LmsVJsWD63wk PfCRWuVSV2NHWua0ogAA32 fkzhEwKapE51tpValrInER Dqa1liW7ygvVNqn3Cmj7Ie kgNxBWaie3UuGP1ycNRsro fjiDC1DANbcYIfkgUxlgA9 sVyqKTYqvY3ksE2auLvhoY 2iRdOcDkDiLAilUS0dDIEz F8qqySMoEUJwASCzD8zoJb JfpS9daEvoTicdtoY3FADk cn19 Clinical Information (test code = [id number]) Shivani Schuler is a 47 year old female with IDA1. Gastric polyp x 6 r/o adenoma2.Duodenal Bx, r/o Celiac disease 3. Gastric Bx r/o HPylori Gross Description (test code = [id number]) s9vglKClZYPqyBDHKHV9ZR FtLT8wcWbqdHq1dOklAYKt cyQ3iEUrTHkwn7rvAZO5q0 nytcMOXpucTKRgXK4uSYlu WNQoJB2aDmQtCEXtJgSmMK BhcGVydzEyMjQwXHBhcGVy rYN1AILuOO0mtfahEBjiWA jsPZZzdgE5AVPqnWGlV1Fo BMObJI0nbbldRMJ9ANVMHo rbZp9mlZRkfVujXvYzUpIg YXJzZXQwXGZuaWwgQXJpYW r2lC6KLemdCZK7VMGCQmqk EuqbaMxpk3VsvYLwFQMwPF xcaWQgNTEwMDAgXFxkYiBP YsUnEhI1Jod7XWP8KoH5OL t0XGUIZWKyFplbTKU0IuK6 SUs5ELVaXX2wDAcdaAMlVZ gxVlxyLDpfY674IOupKPRm Z7ZoZ4LaEZmjBzInKWarXY LuCJBvNPonUAHuR7XJZFOe YJF4SeQmXEZkMTh8DRnoJ9 WCDCXxAVAdAvJ4EZGdAuQ3 IAi6YPGNZs6aLQceVoIiGM a9ITH5YKo9DyJcFOYgMrKi RMCiQMBnQEpicCYjCC9zoQ tbTHDaNW8DVWLuWGhcZDXp TcJnH5JFT4lLOH8dUZrxyE JjaFxmczIyXHBhciANClxw YSZhVB2ILOEpFXkuSUm0ri FoYZSlRiGpXIEdJ84cc9KU r2CqTC0SWUe7kqAhlnsucL 5zCPDgkzYpEWoNhWEixB6u qzKCUIajEFYqA6SmyrHlKY euGSBtna7sbMcfHIosUaCj bGVkIHdpdGggdGhlIHBhdG kzjfSxY4U4rpLpAM2yNSWI YYLnzN0hUDQfACTxc7XyrH QxkNfrJ4SffWRcAdOtt7o6 nYT9KELwdaAiUGGbjCTaCX Sndo6oJWerQpTqW5I5CHIq GMVvx08rbZV6rmOeNpXczX z8eEViKBF6CB4vbJidktSy h7t9uG1zJZHpr5Q4XZDig1 C3IIAviuExmYWjkDEaFRHx NZ3nwvLdOO53SMObGIaiIR epROO2EIF1KBTimUEhd2wa eeooMn0kXPkaYU3aRAeeTU 34BCBxRXziGKFoP7AsQ0K8 LNbuARNgXLNwbLHmnD2ski ZsmgPxoFj6MNTjFAA3zPGu vTfcTVMdSbxorXK2TFOtXh RmhgFjj1CsoOe5cKNnLDrv UIZqgA6ewF4iJUSdEDCqug ZZGixxRYOwERfej1SrNFfo cGljWHNhMzAgDQpcZXBpY0 6vf1WCl7Hal0zxaXlqn1Yh kAYmYR9luZNbWQ2Zg0olVA RkxEDyKWM0XOmyd3ukXZzn RJE0ZTBfWwSyMTHxYX7RCq LmZRweUSh4BFcxDFz1NXv2 FX3YQhIwTMZhShu5YhU1Rs TeHJz4GKcwRN7JTDI3SRHs YVTfBNpcTMS9LLVuKCr9XZ IgXFxzcyAzIFxcZmwgXFxu N35icFHmSEeqZnIvJPnjpL dkPVOkCFW9WG1LJCKjZcBl S9KVM2aLUO4aSbywotLqBQ KyvzZPPoroIGDsBB4GPAVd TBmlNLn4rbYbMOIbErPaVT YxW85je6XXf6RjHG8ARDa7 daTehhbyaO3lHRGnclHhw8 IzMFxlcGljWHNiMzAgDQpT fAXvsJ8rqxLUHRbeRWHzX7 IiioFwIGpsXGOmua3esQsw IGxhYmVsbGVkIHdpdGggdG qdITJniOybkqRkR6K5sjBt HG2kWJXATDCrcD7hNIAzCH WfTKLvVJXouZ1wOSM1o2Lo jqEuMUAZMXHqxLalNQ34wF BjZWxpYWMgZGlzZWFzZSBh atLvruLzk45rqdZbz6LcQT 7etFxuGDiSEWxeCvPaZR1o OLSjdaMux6QnMZ9tXKKlpO MhAHXtxxyxzFNeCSl4mNUl HXSmByWtoKjcp0YuUQDvOZ msJA66lgSaFG4aGJcpRA1e JZsfOV1pTGPvKBTgIAQrNi FttABiHbVupJGhKxArQ05q WkWVpNVjk5ThT6bqSA2feF MeIzwykKDxSYDkvGplz5Ci aHRyLYHdr0OipUEnOIlpFE 7nDMK4Lp1rvWRoLFIqlxN3 w7FyPIfsUMHjVgedCXVtKJ hbk6IiKZIycSZFr5WkTF5D XHBhciANClxzYTMwXGVwaW DUh8ZmHZOXCsryqNiqTjKv lOKsVaE7BILgcDKeHIG0LU 3buOuyMGXxHVq9NMpqNAPq I0KwU4LwVYhmTcToXDcvHS SfHECzSVxeVRGpC7ELQDHo ZFX9XsCaHTSqMBx0NLxcS8 YIRUJsPGNhEuP8PUT0HxG0 QTm4TNIURz3xVJfnRyPeLY CeBgB4SEp7VaRpNDClIeRl FEKtCCHzTGrdgTIkPD1ccR byQJOlTCBkSBS5EXXyjNOB r6XlGPUlLNwiYwZpCLHDOI EUII3RHgXDMMEbViXdyBJk YC8THVUlqcVyMUrrlEwqkC 7slPTgI3peVcOcUdiaaDio TmVzdERvYzEgDQpcbHRycG FyXGxpbjBccmluMFxzYjMw OXAprSQJl5NrXRWFHlNgUJ NpbWVuIEMgaXMgcmVjZWl2 BOHggQ5lIi6vsJIbgX3xnB BiBYypGFOjr7v5lON7hYXm yVB1gHCtfAfrOuPrUO0moO YoFXRQTU07xZVrqoFdCHMs gG8tIIReYESrCJQ9hkhcON NLDLI4oXAws2R0WAyeWWO1 oX7awKryHuAlP8M6KKYoCG Ecf69wjDY5dpFqKxSwMVLr do3kxE9vMOzwvqAwlIzfik Tyc1X0OHVff7Z2OPTsymPi nHLgpITjFWOrChY0GALgXh U7ZYJnIRRjjUWzVEPhAF0x VGhlIHNwZWNpbWVuIGlzIG ZleVFwksFnYJLlkj58Z3fz RBXndN4rs3huKgPhKPGjND RmhLVboYA9FMGiwF8otI85 weHbkeMDFN7rpROfZX9VDW NiMFxlcGljWHNiMCANClxw MYDdOZxya7BmTIlynWmhNL QnXxMuHNlTdWhiICUJC7mu wOMrLJfgUABPYAvQT7IOHO 7FJCImjPENOYS2HY6rBKfu ZCJnR6MgX0LxjfH5q5lknU xnk1PyxZBgNF2azYEcMP3V XHBhcmQgDQp9 Disclaimer (test code = [id number]) d6yfiECzIXXgk4mqYPVffT FuZzEwMzNcZnRuYmpcdWMx IFmyopEwPLwpo5RhK8EfLd AwMFxhbnNpXGRlZmxhbmcx FDWlLNX1qhIqBTUgBWprXG LcKLpvLl3hcLLxjMadFbGf GGYnn3pwgmGRMSbsDcEuN9 19DXAoIQwdk8anw1YbFMRe hKBwo2A0NJEAsnrmaQa0fJ acW51nr7V6CysoN5leCZNx KHNtR8LpEF2eNNJrFsf6UG C0SSN3VQVpTJNuL8RaFH7w BFAmwDHbZXu2g5hlmGdsHM RpKRS9h8ipNRjostIwLN1l pw5euCq9i8cwaoGuUKZbQV PhkGLIEQWbJ7VpdMepCd9n kIj7uDhcCmbaNCA4Sqt2NG 9tfo03aoq8wQnkOJEpvxwq DeD5YBglPHNydzjoEQi2YT pbUKHmaJH4JWOcjZQlZ9Pg XDMrNB8bnny2FQH4XTufYX HiXgE2MCMktTUuEZNjbAdd HPoqx692GVV0XuZoMC8oS8 Rcg8E8gW3riNIcKTQrmXEo JnRuBOHrow0tkMSkGUzbo9 HgLFS7bqH0yQPtfWPiAHWj XZ90Bmhvf5SjXypfq8DcO0 2cvVW4XDrbu0mfQM4eGvR6 ayWdYIdao7zfqJ1hTrD9UC xbCM4mQG5uDYUidW4tjsaa XHBnYnJkcmhlYWRccGdicm GtLa3ofGqaHLG6RDzzF7gf gZ7hTdE9DXysG0ulsI7jCL b3LCjrlYL5DNAqzC3hRA1g iufoq0xeKXlnBXemCWXgzm W8igU3QDWkjBTvP2WmnI2z ZWWbFV8ceoeov7bmZGO4AY phYGLmUMR1DpPhOWCyu3Bm gcb6WaLar2XraKJkEJvpU8 1so915SWSadeHiO2pjvLJx wzpgmYOqfqylZJcrieU5CI VigeEtv5OlJKEzONE8LWoj NUsjmHAmSKPlfSjug2yoY3 RscGFyXHBsYWluXGYxXGZz MjBcbGFuZzEwMzNcaGljaF mfZQiyFiHdMNYsCBhtR1zp UgUcV4XxAZFnFwSikTWrM5 ggVGhpcyByZXBvcnQgbWF5 AMsqE4m9VJJxxjDeuPb3el RrKhDlINXgREU0OVzfoSZb IIUol6XbrgwbsKFaGc6hmD UhDEYgxF0vLGJzEWHhKXwv CY9vaBl9YRBBeMFqkWEnRw YJHSViCU57qdZzUAGIrnsd m7R6SCdpKJNzg6UxaSLvN6 ewx3VbNFVuy08fZA4bq3J3 l6hzSMZ0UO5re0BfFFAljA EinGPsMSNxi0Ihdlmul4Hm YGQfeyDcf9GtXRPxofCliS EmGGRpykIgeg9updSdHCFj OYSdF2RwcpsnxQpheoVlUF Mycr7bdvDzRVV6JVWFYQWm ZOWzr8LerO6rlLXBLZA1mE Ezjm9eibVLtFTfCUUeeh89 JBTsSL6wZ3evUMWjXXXrpe VzpNMll2IoYIRaoZS1vMOg PL2KUkNIf22iHHAaLVJOym PaUVRboMbczIR9egN5zE5m IChGREEpLlx+IFRoZSBGRE KmDV3jgoGsp5HfieYujZlk BCAanJNvm6HbiNHbc6ZzdU ler2BmjMSncEAhFG2aJXPn clxwYXIgVVRNQiBMYWJvcm L8a0NkDYZmLUTgFNS4dJqa ztc8XCBseV4qDCNkC0ofmf ohZDzxOGCdt1HmrF9fxOIQ lEGxo4IrxNErmNNJoRUqDV 8dmpDzIMmIKMpOOHL9ujUd OXFfx4ZvOAjnZ3bpG72liX obgGw6jNP5ODF5uU2qOjy+ IFxwYXJccGFyIEFwcHJvcH MbZTHsxGcoxzMvO1UiisIz iB8wsUSvyeXiZM9jKJ0pJ4 R3tQYcHETdvaAmt2jyWAit dmUgYmVlbiByZXZpZXdlZC Woq3WwDCfsOWF6TZodboWn bmNsdWRpbmcgSCZFLCBTcG FfxNLoAGN6BGfoueYgfdJx AQ3jjR4tdZkdfD2ldGEjhA Q3raqoONTsIHMkoWgkBEOg QO9slPvnoH4sBzToWeVdMU hfTO3qFNOaL2sndMVxGWUt RTGaJ4bkCwBsdU4tcTnjFK xjZjJcZnMyMFxwYXJccGFy XHBsYWluXGYxXGZzMjBcbG FuZzEwMzNcaGljaFxmMVxk QtNpPFRsJIfaS9omDmMeI3 SpLAUrNoMztHFbR8vqTTdw TBL1JHLeVD8ibEOmDG32jL Dtf6dxUDiibQqsgw9iS61h sXBdHGbgmKlyDUNsu48zj0 CtLHZxbyVwvc3pRLKgrzJ5 uC1pIBFroBwgETLjpIBqFQ Lvj8YcDGkgaDJdxgMqZPsj GHHpBUCwgCJtabK5xzZfml ArphQjTYEdmYyrPODje8Lz SJXhFOzlp4Ovhv0qhFCqZB NzsoCJpAiufXZtsQ4gW3Yy JKRhXICjba5zQGHffI8gSC blu0IddbamKEIhLUYrAIVq zaYsqj8gPUEjuFUQYK0YVI esfWCkf4EcfuVqS5gLUEL1 NUQwNjYwMjgxKSBleGNlcH QgRGEkqq02GEUyqZ5boWyb KXFaxM9imN1dsDvmrH8wQk HkCeOzZSjcPE8gUMKlS1qf cMKwOPRhINRpY2ylBzFbeA 9jaFxmMVxjZjJcZnMyMFxw YXJ9fQ== Embedded Images (test code = [id number]) [facility] [id number] 19:23:05* Test Item Value Reference Range Interpretation Comme nts Case Report (test code = [id number]) Surgical Pathology ?Case: [id number] ? Authorizing Provider: ?Dominic Keita MD ? [...] HPylori ? Final Diagnosis (test code = [id number]) x5taiVJtLCUij4yrPEZlcF FuZzEwMzNcZnRuYmpcdWMx DDzomqRzUYvhvHceEFT6DD GnSI7rmHpvgZi9wImkRXDj voN9qMYwLRdvl5faEDI8n1 zhvwhpPHHoJFmoAz7bkPAa wMehIlHlEYUdJZn7dW87FF MvgC0dqDPhPRa6LYXkxMBz ozCyKbTxCSBflILvvCA3BA ZtOH6nqmaiFLkrDQdzRPLj qqB4FZImcTXbO4UwWORsDW 4lwjufRNO4SOixMHOsRSK1 HkBfULGkr9Gqipw3KhXwgL FyZFxwbGFpblxmczIwXHBh lfNNLkMLWD5QUNQFGFCJY7 kTURWGVD1IPRFTFqqybHQd HIBkFLVxSFWWYX1TNILnA7 bHPgPeWV9TWXXyGIVdfCGm KZPzdrMFFnSAZX4KNX0NQU wgQklPUFNZOlxwYXIgICAg VSQlDQlCS7QEAMXhVHPXO4 UFWWiHGGtdNd5bSXCRWV3M M9yXK5GEARRXAO0MGYseZM NjZAZjNURpYJ9HWWsgHLAQ HO7ZGNEHQLASFVoCQGLSIQ CIBCmXHXPSU9LXIZkTZSZv lrbeASRjEt5tQ0JZCJVKGW wgQklPUFNZOlxwYXIgICAg TFQyNNMIO7CMCpCMPI2OE4 6MFKNMREMWGB0JDHGYXCgS UX5NYSJHJRQDVUQTX9PhhN FyICAgICAgLSBOTyBFVklE DX0YRCKRKjZFHEyIUYPsIQ lTRUFTRVxwYXIgICAgICAt WJ6AOKkdSEEPKH3ITPVAJl dBTklTTVMgSURFTlRJRklF TMAAVHLJWI6OTr3TGYPKLc xwYXJccGFyfXtccnRmMVxz q8MbO5WhJwDuVPqipqItTS UdClhwcsswBZLrNOW5ryHi CBTcSJgcPFQrMJuhIe9snW CcaYdaKcRpSLTxy0slqyTH KKoyGzRlN908JIPuOUnfb3 qdq2BhDLNwfQBwd3N3GTHC ppyjaOc3d2zpUqCwBbO0eX UxIHobJ0ltoaCbpRTmS6Mm oDZjtEa5qDlgE22pe4R2Nt fzQ9fxOLNdHDYaM4UiLK0h FVBwJua2EGZ9EIV6TUSkKJ GmV6GsCK2yIIJzgOAiUAh4 w2ohxPkaTISoTGY3v2vhVI mrylI2RU9tlv2bzGt8r6ru czEgRGVmYXVsdCBQYXJhZ3 ItgUkgCh3ulWl4tBdiRtlh OBT4Doi3UN2qsz84qgo7qR suZRRsuzimJvD0ELnyQWEs glmqEZz6DVkrYLYqePC2LY AceGQsX4NgSCOiTK7nbiu7 LGS9NWtqJNPpOlK0UYQhzL SfQRGjbOdbKNspc731REI0 WhWfNP7zG6Aog0J1yO1mzD DxFQNvdUFqBoPwDNLysg3b yWUxTXrlx0ZwMJZ4tqF2jA WczOQzWQTuYB19Ueuft7Dr ZkorMHI2HWWtaeImu6Wms3 exNmNywdMeG1udB6GaNAUe OVXlRSIzWcWydnOkl0Nuk2 JktRCvfTw5v1bkBRRtFZBh hZswl2ogXBR2AAIfB6D3tE Dpj4qdOObkCISdhQZ2yvQ0 ATByaEAkX2AczU0hSNQbLQ 3iwjm8e8owDDV3CKytYZFk ZcK3bmS2YCWahDEgLRWpqE iyYHqdr203VXX9GuLjEELh k6NyC8DpiOmeT06amYtvM8 1jQWStyQvdiT7guMkjlO2f ZjBcZnMyNFxxbFxwbGFpbl xmMVxmczIwXGxhbmcxMDMz IDcqL5ndOpQwRHYgkOirRB obj7EaXAXpVOSfPcfgetNf XHBhciBJIGhhdmUgcGVyc2 9uYWxseSByZXZpZXdlZCBh mXjpk8JpT1rhBM5cJ3TrzT CrsmPbmwOuHVsvTARku4d8 mDPtcLmol8XbeOJmNP24ed QlPCXbUAR3RIIzk3btGP11 gjokKqOiiG49kgFbtiNfWQ Jlx7yqP6rzvVZvv1Vft7Kq clRhMOxyq3LjOW6qsEBjav steJB9KBUbhTAlqbLejxM6 rToqACTxoD2osW1ebIoeuT 2aLgPqGgMhTOzwAS6gFHZn P8iwjVOkLWJhLKAlG1ipWm AhuU2xwFswBvydvgD0FZZc cn19 Clinical Information (test code = [id number]) Shivani Schuler is a 47 year old female with IDA1. Gastric polyp x 6 r/o adenoma2.Duodenal Bx, r/o Celiac disease 3. Gastric Bx r/o HPylori Gross Description (test code = [id number]) y9socUTnEEGflXPCXNG6UI AsBZ8nkVzyfVk4uGbjYUGt wnP0mNSmIMkdq8aeIJQ3g4 wnopNCKdomXESuNC6wQIpg BWCuDN3hRwZvVEKkWzVlJA BhcGVydzEyMjQwXHBhcGVy tLC7SRToAI4anobiXVaaKV ttJSJdbvZ7AAEhuHRiS4Jv QKTiBD3yfqvjPKT3HMQHCi yzCl2aiGPalHjwDeGjNeRe YXJzZXQwXGZuaWwgQXJpYW h2jD5VVfciMOH1QJSKAyit GfywwIdtq1OggDNwFWDxEO xcaWQgNTEwMDAgXFxkYiBP PaUxNmG8Usi9IZB0BxS5UB a6IHOKSNPxPenjGJM5ZvI4 LAb5IYImRP0vDQqfuXQeIA qbWahoJOddV804SWucVKHb K4FpQ1RtFOkxKgPlRQlxZN UgGGAvJHmjXLIwA3FRBNSe IIQ9UuOiLDRcINz1RWzcV7 LXWCBzWMAuKqR2BHMaKsT4 AMk3KYVZWy6mOYghUcKxUC q0GIA0BPy1DdFpDGSqUiVp LGDqPUVsLMofuPDkKC0qrN prLSDxZB3MUKHoGFfjBTAd NtJuW7BKI8jOKN3jIVkhcS JjaFxmczIyXHBhciANClxw TXHxCE2ORPPjOIyuPKl2kq NgXPYrGwHpQSTlS15pq7VQ r5TsSI2DSTv3axQtqlxkfC 5yVMUiqsMoSTgSiOYwkV2e meCJALmoITJuT0EngqIrZO efKQCioi6ybAymCDhaGiXm bGVkIHdpdGggdGhlIHBhdG shebUuY3C4ouJeXJ1yMLGY MQMmcQ0yOLKsSHJlc8IszU UnqHlbM4TjwTJjWcHkz4f0 sSH6EJHkuuWaBENidNSvZY Ngob4zJLrxAxAaL2Q6WPDw DEIfo22piAY4xjZfGgKyfT j6tKIpEQT1AI9vdRhbvlZc b3f6rO0hPZPjn9X7ROKmv1 G4DAHawiIbxZRlfPQhEHFs SV9gmwFgSM78FXEjLXrpON zsMDU6CCR1RRCoeLEog3vg kobyRs6xFCakPU1wLZkaKF 18FQBeAKygBVGaZ4FzS5B7 FCgbWHAsDXWvqVXwyY6rtw QuemKxqTo3ZKSbAZP2vKBu oJrfKOTeMqbjtHF8AKJbGq GufuRpr1MpfCj6jKYaCZdd ALRsqV9rdC2eEALhIQSzoe JQIcenBMQjTIpgr1FmLTce cGljWHNhMzAgDQpcZXBpY0 5kv7ITa0Eqb1zazTgrv9Mz bUWsZA8vtYQpSJ4Yf2lgZW PffLEgGTH9VYwkt3osCZvs PBE1WTFlCxRrHQMvCH2NFk JaZJyfBGa6BTerHPz0GAo4 QL9BPoGvLMKqHai2SsB2Ar XuPAj4CPxdSE2PMIY2EFLb UWUmQXyiRNW5XOKoLEu0RQ IgXFxzcyAzIFxcZmwgXFxu Q80fnBRpRNvzZsNnGCerdX jhBAEsHMB6IH3GXGTtFfWu G3WCQ2lLEW2fTfbgtyPeFL DwrxLHImnrYEHpYZ7LBZSg FEksMTj0wtKzVCWdBoFoFZ JzT51fd1MXx4AwHP0NCZx7 tyCtuugxiV1nVRCzmsMjc2 IzMFxlcGljWHNiMzAgDQpT lHEasJ0afaBEWFtcMRVrG6 GkmyCfIIuwLIFzlr3lrOkc IGxhYmVsbGVkIHdpdGggdG kvAEXrcLtxzuZnG4G7upZh MX7aLLYQFBYimU4bXSEkWZ XwJZElCAMjkQ3iJLT1v5Ld bbMzIQBMPFDvtXgjAZ04jU BjZWxpYWMgZGlzZWFzZSBh ulGqvcSxt15yxjYej0XrMF 4eyAzpYEmADEocKiPwXX8n YWPblsKxk5WpQJ4nEUVlvD DqKVNjqcvebYNiUFs6tVGx DSLaNvHdkCduo5BjOBErWQ hiHY47gnGvTB5dKWltHQ5d YXzdUJ5uKTJyIEYuHFDrYh JjcUJbNeQrmKOiEeUvP41q QzBRhQFkw3LkH8dgXI4rvF KrYkmhsJDqAXZasDdyc5Fp fHIqBJCqc4LpbOKhFAfkLZ 5qXTS6Hs5wyCGqKAKqrtX2 k0FqRDhzSDNwPjdrRBZyZW rtw5SdRXZbzKBYb5EtHG8V XHBhciANClxzYTMwXGVwaW LDe5UmXWCXThassLeaEpXa gGKmDlH4AFZgyMHjVAK0SF 9qhRcwXXPoHCb1HQvfBRKe S8BiM1FhQUmgZnQoBStuWR GlXDBgMMhsNFWyG1WMNRNh ETM4NpLyLTLnMOc8WGagK2 EPMHEnQCBcUeU3MBA7ZkC8 VXr8HFWZHm4fGEbkAbVxTO MlQdT8LQp2UmWgFDIbXmIz FQVcJMHhZScclZJwMU4ohZ khSBRoRHLxTCC8CQRpaMWL o3GqNABpCZixUmTbXNDCGD DEDP5TYoOGBBGqTpWfdCZg XC4DDRImrrIpBVdnnYicsW 3wkDQxO7rfUlFxMquqoZgh TmVzdERvYzEgDQpcbHRycG FyXGxpbjBccmluMFxzYjMw JOUufHRVd1DpIKDJBwDjSQ NpbWVuIEMgaXMgcmVjZWl2 QUMswI6oFp4btTJttG4mrR KjXNjdVRDwh3u3bAO4uFMw xOZ1bOFgeJdtVfRuIS5hdI AlMOKANC92gAHxpqLyBZXv yO2pEPGkCGLcVFN5oujbJP UQRMO2aNJcq5P5QBknMPY9 oS3izQqdNgJoV1I8XSOlIH Ggo20vdYP9gwAcYzLwHZLh db7miW6xUFpcrnMcfCypxt Ige7D3JFKlh3M2AAMboqJo yQOwhMAuUMXlDsQ1HAViWc W3PPKwLDJsnLZwPFAcGK5i VGhlIHNwZWNpbWVuIGlzIG JkfCUpdlXoLLOdoj34H1xb KDHehZ4mb5jbZxSgSQXzKF KmmQWgjER0LIDhuH9urI01 psYjkgSBWM0hoYKpYT6IAY NiMFxlcGljWHNiMCANClxw QQErTCaro5NoFMfxwZarDZ VxZqRyMAbPmVdhCSNBO7lz tDFjNLwvRXJDMChNY2UUXO 5OMREwjFSMSJU1RC1jTHdk YXCaS0QfJ9TffcB1x3lxrN iln9GjkPFrFB4kcBIbIG7X XHBhcmQgDQp9 Disclaimer (test code = [id number]) r0cyyKIqYCDqv9hxVWRroU FuZzEwMzNcZnRuYmpcdWMx MPzdfnQsWDthi4FkC2KgPz AwMFxhbnNpXGRlZmxhbmcx AJJtTKH1myWtMRNtGMrtPU HrKStpGe0bgJVytZueBvCz XPFlq7jmkeLUXNguUeFfD0 90XFIfQQwtr5qrl1ElQNBn qUHsl0X7XKTYnpdwjPd4eP ehC43ua9G8ZollD9qcDBFo SGGaJ4WtSW7kYNHoDlr2WA R3UAZ9DWIbQIFkH0XkLM8u UZZyfWOiNYv4h9rhtDmdRH WcMGD6e0ksZNtgxpPjTK3m rb2ucOn0i7jtcvJaQGGzBZ VxaGFSMVFoR6QkfNjvEp5j vRu8jYmmHaaoBCE6Yao5VV 8ple58may9kLopRIBdcsya OuL7LXloVGOduaczSNo4UR glUQPzwDO2SOArrJAjA6Dz NBLcWL4uxng9ZJH1JHxzAA CgLiO5BWMliTYhQECuvHtr GPzrk160XKI4OrIrKC5pQ8 Wuy3I6lU5hmKPwZRVavNTx GnVwUYBbsl7rnWJfDAzhr6 NzTIW2nbT5oAEraHWwTKWm MH70Ilnid0DfVqnwj7ZpI9 8ixVL2QOdon9zmPZ1bMaA8 vrRmBEotw8dxtX3oAqH1WQ peVL7dKN0mRLWduG4jmmcm XHBnYnJkcmhlYWRccGdicm UwPb5evUciMYN5MDlhD3qi nM4uQoT4QKhmU1romV2eBR k6GXvwuAZ4MQYggY7sSW7v ogktx4erNGkeKUufQTZpym G4qoK4DTYtrZReZ7BmgJ8y MZGxVV2ykaplo5gyEYZ1AD oiNTQkDCA7FqRqYMLkp4Hk olt0AvHxp0WgeSGxRWdmN1 1ss793NXKhglDcL5prkAEz ofyawSWuaqrvNLayzbW5WJ JtrjLlp7DyVAPaPSS1GTac HIpxoQNeFUAcuNwoh5mdW7 RscGFyXHBsYWluXGYxXGZz MjBcbGFuZzEwMzNcaGljaF rtWSniPwWmPFSeDQjxS5ov GyKnN5QzBJGeJiLquACrK2 ggVGhpcyByZXBvcnQgbWF5 GGapM1e5JQDlzvLbnPf0aa XpBaFcNPBoKCD5REprgICi JOLdb6VoptnxkXZuBy3xzM VrKQCglN4yWWNtHLBjSEce PA0oqXg2OYGXeRSbkQQyBt KJIQLlRK29rpXmCZCDkfbg k7E4NUslGLEld4BwaRDuC2 ixn9YfKNUyo10oXK4iu7W7 p7vwHGT8TA8aj0OeJJLbnA TszZNsZPVjx2Txpnbyg1Kn FFTkugUhi8MiINOgblXghN GaJBDtqyQhqg3ipwFfRLFw LSDfM7FmnwlrdPoiduGsAH Qbxo1xlzByTQN5QRZSBNTn EGNko1VqeG7slDESIBG8gN Ciph9yacTBqCVbUTJatn10 TMBaGH8cG9ruJQBqSJOfgx ZikZPqu4XbAORznZP8bTSk SX9DUfGUi83zBEWfWWMVxt IwJRYygUlatUB7odJ6eE9u IChGREEpLlx+IFRoZSBGRE AuUY2kepPuf9XlthXglTsy KXGtjTIul3ZpgDUoc8PzlG iyj1YzwEMdhBWrQH0cZNQh clxwYXIgVVRNQiBMYWJvcm R1b6ZfGQQqAMGlLMU9hMtp dcb0LVFglH1qWFDtL8kpgy xbJPhtOSLzv4IjgR0zkYWE qGJnr0PlxVZksDREcENuCG 7vlfOjLZgIYFvPVSH0ulOg SIVvg2RdOWenU1fjE12gmB xpaRl2yIL6UZH7iY3rMmt+ IFxwYXJccGFyIEFwcHJvcH InXNJymKbuhtGmH7DnuuOw gD5phVXzpzSvZY4mAG3qQ9 F9gERkXYWzibJwb5zcIBuh dmUgYmVlbiByZXZpZXdlZC Kop4GqAZfzGIS0YUwdkiMw bmNsdWRpbmcgSCZFLCBTcG AejWNfKYP9CXcrcrUbuzQh UW8ecW6taBzxqO1vfNHchV O5lfvxNFAnHFZvdUueSPPc TP4qrZgrdH8lMxYzOaXoVQ ssYP5mWQXcX6llxTEkURSq HZPnG2yyYrBagM5ajXkpTQ xjZjJcZnMyMFxwYXJccGFy XHBsYWluXGYxXGZzMjBcbG FuZzEwMzNcaGljaFxmMVxk VyQgNEXwTNtzM8hpCcAwS9 IiEYZzJuUsoCInR5jhLHya EHP2CCCiAZ5qcHOgJN09kY Nuq1bcRCziaPwjol1zK58o cKSxVFmhqQywPLFaj68dz9 OvLUSoykBwzt7vMUGookN4 fM2jLUJpnFboVJTvmOIsHE Okf5EcZMeqkZGmcoYyBYfm CMFnCKNxbOXycqS9imCrgp EjjnUuOYUknQfiNXYct0Nw SOFfUCkit7Hdan9hgHAfPN WqyuIVoCqqwFNkpP9eD6Xo NXTxOZQkra6vHZHhuV4oAM dvi8MrumlgMUJgMDIlZVHd jbHdtj3lFNIqeOICNM9RRM zbcHUfq6HinoOlH3yUMLZ7 NUQwNjYwMjgxKSBleGNlcH JzOLTyrc31TKPezB7hkXrb JXQtzB5ghR3fhRaviA6hRj JmWbUfKBfuIQ2vEJUjY9oi mHGyLTEpGGJrX7ttYxXhcC 9jaFxmMVxjZjJcZnMyMFxw YXJ9fQ== Embedded Images (test code = [id number]) [facility] [id number] 19:23:05* Test Item Value Reference Range Interpretation Comme nts Case Report (test code = [id number]) Surgical Pathology ?Case: [id number] ? Authorizing Provider: ?Dominic Keita MD ? [...] HPylori ? Final Diagnosis (test code = [id number]) j0oovXDnLMIlp4zuOKWzhX FuZzEwMzNcZnRuYmpcdWMx HTemsgIgTLmngTirCYG9CJ GmMC5ppKpytAg1gZzaCSVm kgL5sSPqOOtab0woXCN0v0 zheinqNPRwAUlkJv9qjNGy yFebMcVmRGUmAOo9wG22ER MqjC5pdGAiAOu2ERQogWGj vsSdAsYmWMKkrVUxoUL8KJ AuCH0gwzzzMTzzMNnuLHOr duP0HZKpcPBdQ5HhXVLuUE 1envchUNE6HAebRSZhCKO0 XfHbMYPtf9Yvguf3KsEjkH FyZFxwbGFpblxmczIwXHBh rvCGIjOUQX4LTPVYLRHUC2 fSIXRMNZ3YLEUJTvpecYWj NTJoTDGcWNPSNE0NDBHxR3 xGIrXhMJ7DUQBjJSAbfNLt OTQcugOJGlFAHZ7RZJ3KZT wgQklPUFNZOlxwYXIgICAg HMHdKJtNT5VZMXPhUCIRY4 CVRIsVQIvmIv5cZKQLEN9R B1iVK1QIXLXGXE2UDIboWL LuRWTiQYXoKP4ZTOsiTYLU UE1ALBBYVTLMNWsNFGPRSO SEOGgDTTSFE9KXJKtBSEEs majfIBZdOg7jU3ATUUJATS wgQklPUFNZOlxwYXIgICAg GIGfTWKYH2EEJjFKMU2ZI6 2IIMLBHMQFFN1QYEFDMJbI GR3BFFHXINWTKJFXX8DpeJ FyICAgICAgLSBOTyBFVklE HD1AVLBHPeQXEGrSIPTxVX lTRUFTRVxwYXIgICAgICAt UM9EQKixXUAWWQ2BLMZSMo dBTklTTVMgSURFTlRJRklF SYLQBFNNKJ7MGv4IWAWLSz xwYXJccGFyfXtccnRmMVxz h0TqO1FnLuSjQZctujEnVZ FbNmloifqpOMWwBDF5ysRa WYRfVDewZTPcRQccRt6lvJ VzdPtzMnTnPGKjt2rlspWT IYiuLnTdE925ZEHzIWrrq8 dbz3XuLAOiuRVeu8K2FEEL kxwjhPu2j3wcNzJpUnT7dK XbTHohW6oqgzJnhPDoQ8Ap sEQuwUm4lQbsP30bc0K2Bu fkA4beYJUnIMUgF7QzKB4x PFFlQfj6PTQ6QRN6JBUbYI YnX9SjBS4dWFNmcMRgIMy5 f8trtPucVHVqGRM5r9nqJG rplbW1LE6eqq6nkAk9c0qz czEgRGVmYXVsdCBQYXJhZ3 ZacZsdGq4ktKe5kFwkIyww IYZ1Dac6JX9dbw84jdg8yO beHEJtkpdxKrJ1INmzOGDi soycTBq1GKuzWXCofSW4OZ JzeRWlW5QfWNIjEA3lhya8 NBJ6FYmuXVIlCrH2POBntY QmKWHniHpvVPopg351BAL0 PdQkVN2dV0Nyh1N9fY2miY RdGFRzsTJoKsPaVJTqpn6v nUUiMUpfx0DpEIL4ayM7kO WerLLvTZHxKH52Beplb7Xo QzfsUNJ3GLFzakFno9Lgf5 poJmUwwgGpA4ltJ2PoIFQt UESrTYOgLxRoraKqw4Son5 XsbCIasCp7f4rvTOOcNPWj tBxje9mwRZM8SWPdN8E3rW Qpr6hyKBueYNDefYG6bkQ7 WKWneDXlH5UgeV5pWWRqUB 0hpgf1k9glFKB7QHodJYCr JmK7qnB5ATVpmPPoFRVelS yaVLyoi879TAJ2AgZgDCHz j8RuG4VnxQejU68viOgnM3 2cAWUbmFcchR5czEtcrY3p ZjBcZnMyNFxxbFxwbGFpbl xmMVxmczIwXGxhbmcxMDMz BYowR8urGwVpEIMkjOiwPI qvf8TlEQOkWKNuQyvppqDn XHBhciBJIGhhdmUgcGVyc2 9uYWxseSByZXZpZXdlZCBh gYwvq1HyH1prJL2yH2ZfwJ CjsgCbioNuKEfwAQVdx5m0 zDHdtJwid4EqvNQiSG04mh RzRUOlSBF8ABHwi0moME84 gcbrEwFtjT84ihKnxnDeCM Wyi9isA4bohXKmy3Deg5Iw xmVyMAshr1OoPR3smMKngv mzhTR9HSFavOFgdvUhnaH8 bVvaKXVrnZ2bzN7qkCpddS 7vUkVjTbCzFFqpHD0yKYBj I9wynXNqKBOfGLQqQ8mqKi LgzD0ovQyiCjsumnK7AOBs cn19 Clinical Information (test code = [id number]) Shivani Schuler is a 47 year old female with IDA1. Gastric polyp x 6 r/o adenoma2.Duodenal Bx, r/o Celiac disease 3. Gastric Bx r/o HPylori Gross Description (test code = [id number]) l2ukfSHvHEGelEEILPD3LW WwLC0ecKyoaPh1zHzjAJVz yjT8zAGcHAukq5zjVHG2w9 kmbgVWElzlWZQkTV4lLTjp BQQmLX3pSyFuIKQoZfKmJU BhcGVydzEyMjQwXHBhcGVy tQK6ETNfTJ1ioanuMLjyJI uiSCNbmoR3TEHnwJZlT1Wd QKGxCX8bphumOXX3QLUIBb veWd9pkMTdkUqaOoCiTiGc YXJzZXQwXGZuaWwgQXJpYW v9nC6XQriwXJI4QDQWGums TniweNfwz4JuyFEgALKrZL xcaWQgNTEwMDAgXFxkYiBP ExScOiT1Eyt6BCK7RaC6VF n0PTJHGFMrNehcVXD5BxH4 JQy3SHSdCR8aVWgymSLdOX uvQmngYBrwH195UJjcREVl V8QpA8LeQAxkWqFpLRafJY PsDJVrVTuoFYRjA3FELQEi CHA5NkTxFWPgWUb0EFznW0 AFUVRyUECxVlT9CHRnWyR0 XXu4TYQYWq6kEHmpVhRgAY q2EZB5UCk9XdFvTZRjHxQa YICpEZNjFZwcdHVlSP5buY naMQKeNM9PIDAmKXvxEYFu QsBrJ0UBU5gUIK9sIFpffI JjaFxmczIyXHBhciANClxw YWMlLI8SJCWxVNjjGGt2ib VpVHRmSdRbMHGtN76in8SQ t1DmNR4ILOq7tiTndtvmjJ 6iRAFftySjFSlRaEImbK0h hpBLNWwmZVNhO9EgxzRkVG aeYJSybe4mxKogDVneBwAq bGVkIHdpdGggdGhlIHBhdG uykpMlA5W2cfKpDY7iFFBI PWUhdX5tFEXlQAAde0VdfF ExmMpdN2TrpNUbMiQos5t9 kWZ6BZLgeyGcGGCavGZwWM Iwqy0oMJepTpMuS5C1PLVi EAWsy10geEM3bnIvQgSajK l0jLVjWYE2CG6euEnsujGl o2s1eC9rQQGok3I9MQOil0 F2YKQslePqcHGcnRAqDSWw CX4hmhXbAV84MTJpFZosFL cgGYO2CGK0AHLjtGMhs5cd vuemVp6sCCgdZH9jEKaoYY 75DUQtINsaWRLbR5RjC1U5 SZlyRORkJKZntUWwrQ0xva MjemIfsCm0CYZnCOF4dWYh uNgjAESwXlipfPA7FFKoAd VeuxAuo1UumEv9mSCbNKnd MEStuI7wxN1cUBTfQAQbzt DYOftyZQHvMIqzc0AoOXgu cGljWHNhMzAgDQpcZXBpY0 2fw0STw1Eml9pczLcph7Yb qNUfKW0byJJnYY2Tu4dpPE DztYPwMJU4GEahq7dsZTek RRK7ZZAhYaNjBZAeTE5QYd BxLSmvTUr8BHszQHf2IVe9 PX1OYoItFUTfLzd1SxL3Wk LjLHf2ZJgaRN4OOSE4MXXm SPDjQBovZWA6QYJnRQi1BW IgXFxzcyAzIFxcZmwgXFxu U77etYJeYPvvJlDfXZeskG neXLBnAZZ1FR6UFKVhFnEi E1REM0sKDK3sHtzkqqViXN VndsWUMzhoWYJuGS6QMUYb PGkbWNc1bkOsHVAbYuXpCR YfW84ux8PCz1KnKF2ISWs8 syIbjbzdfY0tBTImisClh5 IzMFxlcGljWHNiMzAgDQpT wVNtkB3bknZGQOqgZQVfM5 ZgyuEiBIdgNZRrfg2mxLnj IGxhYmVsbGVkIHdpdGggdG fzMKNobEihcxOmT6V4vjWh KG7rXEHUOJZwzU1uUAYpFV BcATDoWLAztS7lJCL7l9Wu tdMxCAREOLTlkRwhMZ01wA BjZWxpYWMgZGlzZWFzZSBh gvWhehIpr67nrhRph9DvRK 3xqOppWWpMGNjpYvAhAO6y VAYjvaYca4ZvKV4zMHIchE FnKDQuxrjomAOjHWt9wBPj JTRwEbVhmQkxl9QpVTLpNM bfFR42ntVtVA0nZVouBF7f VEbwJL4oBSAiEPKsKUGePx YgwBMvIeHzaEBfAjUrQ48t PaQCvOUeo6FvN5oiFD0cmJ QaMztdwMVgVFElfFxfk6Fs wVNrBNHzh6KekWYkOOkzCE 4hZWQ2Qk3kmPEsIEGiqiR9 d3IrHArdCUSjXydsBVHdMF kqs7IuHSAhdZEPk3PnWN3R XHBhciANClxzYTMwXGVwaW RPd1NyUFKMMjfmdLowAvMi nLCfEtT7OLZkhOGpNRE0UW 5emWmdBVRyTCo3CPvtOTHa W8UaD7QjNMpjEqTwBNncKH JdCJGlYPqyCHZvB7VTENVs GYI1PeTkNKMlULw0NKpxI8 NVDKEcZNUqZmS0DSY0GdR5 UGu3LDCSZq5wHSugBoVcNQ OwUpV1BOa9ZnPbQQHoRnFg KCNvNKKpQJssfMCtNZ9eyB dvCIVdTSOrHBG7OLShfJRM d4IaNZWrTKtcQjMcJIJMZT MQAA5TQuSLGCDnAiKuyYKo NO6VNCOexfTrRQlfaGmikK 9eyGLzG0mrOjBrHlwheFbj TmVzdERvYzEgDQpcbHRycG FyXGxpbjBccmluMFxzYjMw SSNldAFDd9DmANWYCrVeQU NpbWVuIEMgaXMgcmVjZWl2 UYPajK1hNr9obSFpfC3jgS TyWQdkIDXya2w3sRC5hLUj kPJ9oYJxnEuaJhAnYT8gcN PgHCXLGF73qPIzqrKdTBGf aC2fHJJtRQGzBJW8mympTE BOPCM6dXUjc4Q6CMbjRDX8 nA7gyYwtFsMpV0G1MISvJV Hba42vtOG4gzTiPdHtQGDw pc7rcD3fBYsgnyMhbDjdol Dyy5Q2JHLop2W8WNXcriGe fIWitVFcMIIeEnW2SMBySs A1HQXpDEVftIKhJVVaGY2w VGhlIHNwZWNpbWVuIGlzIG YxiRDrvwBpWCPcgd23M9uk GFCnsP8kr9uxMdYePZLqYM MxgSQymFN2JSPedN9bvT72 bjKqedWMUS2tnRQvLO0KIM NiMFxlcGljWHNiMCANClxw IEXyUFwlo0VzYWqhiFslVE IlFdHmUKgAiLroOJEDJ6zy lLSdHEepESGGZGsFM0TSSS 2CSTXrvIFVEMK9EW2sTUqo BXKdX5AuW9YpfjF5b4lncH wic4PwpHCjRZ0ofUAaIV5G XHBhcmQgDQp9 Disclaimer (test code = [id number]) n0qcnGRfVMNwx1anKYEeyS FuZzEwMzNcZnRuYmpcdWMx EXxwjdNgXOzvw3NuT9PsQu AwMFxhbnNpXGRlZmxhbmcx CNBnRET7bfJrRMRbXQpoEL IpAOtpIk9zgNOeoMcdDbUc LGTri5qnggEXLGjfLiNyO4 28JXZqFAwzl1lvf9WeXYOt nQCye7T5KTTKrgtprMl5wE trN46rd0R5BvtxX4miJLAa XUTwJ7RyUZ0wEKSqLov6JQ C1PMH8HLYoCNOzO9BoQP6y CWMtyRLrABe0y9hbjIvmBD BhOPC9a3nhYXwyalIgHA1j da4dqCi7u0uzlkKeECVeHA LtdDBNTUYiL5FsvRypUi7l hNm6zGycWwraRQU6Ttf9XJ 1ogu93kko4aXroWEVybvad EkW9SQhrLRAnzgwgJBu0VZ fcIJKgtSX8PQOuqKNuV0Ze XNXpZZ7knqr8POV5FBssVY ZtYaN2YVZudLIoZFAvcUtv RJfnw241MGC6GeOyIK9dR0 Glz5N2bH6swCBcFLDevOAp RvLgYQWtlr7vrSFgMBwgv7 DuGZQ4aiA0hVTlmLJcNULi BS90Cdcqu9OkDzgeu2TuM1 1jfAG7QBkdp6yeZF5ySwJ6 ksFiLPxem9bxlT9xKmC7ZV ulXY0lHY1cWKWbiX2xetyb XHBnYnJkcmhlYWRccGdicm DnFt3gaJeiUJK2GJhnR0iw gC2cPuH8GBayF1qesY1xMD c0YNcdiSR6EMAvmP1kMK7t iiqok7naLDadSPezLBPaba X9maY7YSHwvITuZ2SujT8h SGMsGT2rkqxcq2pcQZL9GB yqLNBpFNF9IrJsMSGaw3Iv uae9BuRet1VgrSUyGEfbQ9 7oz651ZVMqycNeX4zcmBCy azfztJXwmoeoEKmyqwF5SE EpbsUvo5KjZGQdXKV5BQzg GNybuQKbHKUqhYfmu4ayQ1 RscGFyXHBsYWluXGYxXGZz MjBcbGFuZzEwMzNcaGljaF vbKCgfGwKePFBxEBugC1ie GsArA6NgJBGxOoRoxXHuL6 ggVGhpcyByZXBvcnQgbWF5 NJocA1k8NOVhibPqrDe5hb BhFtAnIEHsGVW4OVhumPDf TONio6FzgeckdJKsCk9dyN IzDDPcxA2pROVdKDLeLNcj SQ9eiPo5YRHWlKZwwTByMs ENLBZcIH28xqOeAAECqdsz d4R3RFtlDVDoi7KrgBGrO1 ylp7OeGBMup53dCC6rl0R7 n0sbJZV3JI8gr4SfRZHdnK KbuUXgVKUlf2Lseiczf4Vv JRZbhzUsz7MwAUPoimDtkL GsHNQqmxFnek0ywlMkSOXa BAEaC2SrusrjaPmvpsLpCG Nyli8ugwSfMYG2TZUXJZBn STPir1MzgW1ydVBJCJQ9dA Crdu1hgsBNiXRwSIWelx64 CDWvYJ8qF0pmXWGwZZCpby CjeVRdj1ExACRlnSB9qETq WO9FMsAEd22sPCQaLPUCjg QkUWHowJdbeLJ1xcZ3aI8h IChGREEpLlx+IFRoZSBGRE ZkUO2jkkNou2CvpkRmaMlh SGSbuMCej8SjuJLrp7UtgL rpg8AhfXTpeUFlPJ1uYEJc clxwYXIgVVRNQiBMYWJvcm O0y9QwHKXvUAPmUXN2gQph nan6DIVjlY8vIHKwR8sxcm veYGpwMOEax1PitF4paTVH wDMny4QyrUXvlXUKeNTzCA 5xdeAlNRnJJGjEEPH4hxQz JGKze4CiMBgxV4bdU39jfX bepSm7tHO5HYR6qM6iWci+ IFxwYXJccGFyIEFwcHJvcH XaHSKviDqcrlYuY9KrzqMf vE3fxHYuthAuXL6zCM6lM9 H3rYTmWXEafvOvm7lnSJrw dmUgYmVlbiByZXZpZXdlZC Dvc1UiVLkfTGT8CWvlgkLg bmNsdWRpbmcgSCZFLCBTcG MraENpEHI9SGdunqTffkFe AB2voC9hvIzjhL2ijCWxsU P6eooeWQZoFJPtwCwuUMUs MX7rnFiebX5lElLzHfEnFA alQL9aJYPoO1otxTGoEHKy GLGuQ7kvXiMhoG9mjKahRH xjZjJcZnMyMFxwYXJccGFy XHBsYWluXGYxXGZzMjBcbG FuZzEwMzNcaGljaFxmMVxk MfLvJMVsRHnwO7lwGuVnC2 ElSGZjQvYtsFYjX3utPUpa CFW7DTYfYG5xiOWqYU89oB Sha1wyAYvjxWtpdi4uI24v dJOrBRvwmUhaEFKmz99gl7 JbDUGlgxGiwa7hYPTuxoZ1 bH1lKLEpmXxbXWTadHUyZR Zmw7ZoRGnitEGruuXlLIww FDJeFIGhlFWxoeV7poWrkb LlmwVhJKWkbKcvODTje8Xb OUIeQNsej4Ngbw4xzSBaAM WjkkTRhOxyyTGfzU4bF3Xj ZQEoFYOtzr2oEZPaxW7mFP ggi3IishzwSLMlFVOaAQQs vnPrii2kIUXcxAQNQI6EGH mxgRDku5TfnmSrD6bHCRA9 NUQwNjYwMjgxKSBleGNlcH AxFZPliu35LSGnaN4ixNui LHHgkX9woZ5edLqucJ4wYj EaLbOoGHcfQE8lATSzT6mz tUCnEGMiCTYfA7tjZaNhmF 9jaFxmMVxjZjJcZnMyMFxw YXJ9fQ== Embedded Images (test code = [id number]) [facility] [id number] 19:23:05* Test Item Value Reference Range Interpretation Comme nts Case Report (test code = [id number]) Surgical Pathology ?Case: [id number] ? Authorizing Provider: ?Dominic Keita MD ? [...] HPylori ? Final Diagnosis (test code = [id number]) [id number] FuZzEwMzNcZnRuYmpcdWMx VWipokFmIZoauWokLPI9EW TuVC8blQmlyOb3aBreVIXu fdQ5sDZnDAnnm5htQSA3k4 ckgkpwGQLwQWutOv0kfGXx xKbiYqPpQWXgOYm7iV11IA HjgJ6seMRiVFe1BUVwxHOx mkDyTgGaLYAyhRIqeAY1MH GaKJ0mpjihAMnhHLuxKZDu fcD6IOCviJBoN0DkJFKfRB 5fcabaJAO3CVeyNERsCKR7 DoUaPRSox8Daaxs9HfEodV FyZFxwbGFpblxmczIwXHBh jnMMGjEHEH5HXFPIPYDCK0 vSIVHAMD3LUXCADuvzxCDc RXOiJVOsBZGWNV0RAOMuO2 nVGjSaQB1AGCAfMLByxVGs NVVgwtDFUtKHYE9EBA4FJG wgQklPUFNZOlxwYXIgICAg GBMxOUnSC8MPOHQkKIIBQ8 DMKDmIVXvqDx6cKNSKOD0W T5rNX6QZBEXBDI9QSPzeNW OsDEUvCBFyPD5EULboFTBY KG9HQIRCDMTNOGdAFMJECB QXJGuKGHTUH6TGULoZJGYq kkvjGXVmEk1cY8FHREXGCO wgQklPUFNZOlxwYXIgICAg QNUrRKYSV0ZZIeYYZL0FT4 2PHEFNDHIBAP2KIBHDQBzR XA2EFRFYUHOYCJKFR7OdrR FyICAgICAgLSBOTyBFVklE UR9TTZJCOsKCFJaRGJZnKH lTRUFTRVxwYXIgICAgICAt PN8CJLgcAGHAON5EYTUKTi dBTklTTVMgSURFTlRJRklF YWVZQTCAIF4YRp3WUJBCXv xwYXJccGFyfXtccnRmMVxz u3BcP2XaBmDtOFqpkjFcJX MbBrobczkeSCTvOTU0dzFb YAIaIDqwHYAqDTtxEl5itS BqcFqyPjThLTOfd4kidcJY NZggKcBuZ062FEJnAQcsm8 mle9YdPWVeqAOyf1H7BWLI dqowrGi6n5gjQpCcHwJ9iF HwCXfeC5flhvTahDMwU7Tw cVZvkFk9mJngY46hb8W8Gm tdK8vhITAzXEPwX3UzMW7q RGFnNmd0RWE7UYM9ZONyFR TyW3BgZX1jRVXuuDQcQGf8 l8iifHtxZYBhUGI5c7xeSZ favcA1HL1kpm6clVb4q2yu czEgRGVmYXVsdCBQYXJhZ3 PieMywBv5eiNx3lMnqRhnm JFI3Cwe4DK8wcm82cgt6iC rsPXLnqivhHqC9XFldWFNx hcpkDPy8EXhoVYSvhLZ1IK RegMFdE4ObSAXbDH7qdfu9 BGM5SXtaEUElNeZ9UGRknR RpMQGrdKegWWcqb149AQD7 CnCmOJ8oN7Yar8S5aX7dtV GxAUIitGSeHmZdURRcwi6o hAYxCKwna9UdVEY6szI2vR WevSSsETXnVN19Nwckp9Pk GjgoLHB0FRGzvcQnv5Hax4 clGeMeidGjS6khO0NsCAGj SMOwEUZmWrMdykTco2Rwf1 XirFYkmQo0k5jwZCKeDUUp uDvve7wiCKD9ADLfI2B9bA Ejs4ybAQtwLXZdqCV1jbT2 QFMqoLSlM7NkbP3yITEdMK 1nbbf0c4ayIPS1JOakBXHg WsT4dbR6YQOqtHAnTXBpeZ oaJBfnj450TGH8CqFjKKId u5IhC7WyzHewY80gkUisJ7 8cVWEinTssyY7aqPscvB0c ZjBcZnMyNFxxbFxwbGFpbl xmMVxmczIwXGxhbmcxMDMz AQuuW4ysHkJuKACxiDdxKA msv2GbDSYsQHZtRxkvfzYr XHBhciBJIGhhdmUgcGVyc2 9uYWxseSByZXZpZXdlZCBh iOlmw3UfN1srTT2oO4CgfW FpfdYjvoMzNNnqBWGaz0e0 zWTbpXxkk9BfcUBhJR40np ZvRAFbQHC0XHMdv2jkPB10 twtkNuNwwI02ezLyifLhCG Mdw1saJ5wkaSAol5Ted5Qp yuNtTVkwt2UeRU1wcPVkyy pnnBV4VJOhqGLgepWfddT2 cYprHGCaiR1uiR8dgGtshM 9kMvPmBcWaHFqvHI7hAJYi I8gtmNFbLMIzPVKcM9thTr ErdZ3zfDnpCfuhbcK2KRPq cn19 Clinical Information (test code = [id number]) Shivani Schuler is a 47 year old female with IDA1. Gastric polyp x 6 r/o adenoma2.Duodenal Bx, r/o Celiac disease 3. Gastric Bx r/o HPylori Gross Description (test code = [id number]) [id number] RrIW0orUorxPa1jKfvGTBa wiC7cRTkOQqwl6knDDL7n0 uppoUFLoptAGLzSX2zWMhn GAZuPL8eWdCpIFVpWiQiNF BhcGVydzEyMjQwXHBhcGVy kMB3NWChBR0trnofHRhbVF vdLCMwndZ6GLJfrVYsP8Fx NVUlEG7ibeecATG2ZBXTIe ovWq2gdYOzfQjkZnLoKoQx YXJzZXQwXGZuaWwgQXJpYW o3cA6QDbwuJQM6XHBLEkjg AcxjpYosq7PivADfYWIgVW xcaWQgNTEwMDAgXFxkYiBP CsPxBrR5Gwu5LED5KhY1GK l9RZUTSSQkPxgqKLO0FxT8 YLo3SHCuRL4uGBnrlFPsMN zuPejyTLooB265QHvvFDPa V4MxE5UlHCsdCzGmRMgmND LmITYiEByoUGQfS6KCNTLv XKC5AkIjMOOxTCo9WQdoH6 GODFVcKLYhOrK3VEIhAnU0 FJs9GMSWTv1lXHxkPjGiFE z4HSX9KQz4SpJcIORkOwEr CAWuIUJpFBcqmMUvVK2spD rpUPEdHB2ABGVrCChdTTDv UzEyJ5TPE3yVUF7kNKngeJ JjaFxmczIyXHBhciANClxw LTWdLH6CJKYeALxiBTt0ok GsTLLsOvCnSXJgH69vh9MQ n9KeRV8GLLe7jcNkbrtgaQ 8kEZFlbrPkNSdUxVUwsX2s wtTLUXucZXNaB7WbpjEnID hlFRWyyy4umZqvFCgqNaUn bGVkIHdpdGggdGhlIHBhdG amkmLkH5N4woQtMQ5gWVZR EVQdnW5iEVSzQRUwm7QctX DopEmjM5DrmMCfKeVaw9c9 vUN0ZQMjqwJbQJUlaKXsIS Wgxn4bWWixZpTiE3M0DHGk BNZex47xwDH3xoSlCiNjsA k8fPSsSSR5BK1yvBniizAz l2r7aB5tQNHlk1X8ZTShn7 E7MIGrzlUurREejCWfDSPx ZO2tgrLjFY12VVYvVPjsPV gmSYE0OPP0EWNfbJObj7rn gfxtOy9uSDkaVD0dFEmwHT 83EITyJCspHQFzZ6XwZ2B3 BZkdCMNsYLHynTGkcL4wmg ZccmRcxWg8RRSyLGK4rFSa kNhrPDYcUkwdiMJ3UDGjVt FtwxMrw0XfzNv5uMAtSJlk TWRslW9xlV8gOCJzAYVdme QOSryoSYLuAQgfc0AlKIrf cGljWHNhMzAgDQpcZXBpY0 9pp1WWv0Owo3nfuQmjb9Fs aADiRT9siUExOR9Me3hoSD LncGCuCUT5MMrgb6bqMGee YMZ4BYCiXrBlVLReRJ9CNd AlRUuqLHq0WKbyKWs2BWg8 DT8ERkFhUSSyUxk6VlT1Ok YyCSy1LVfxZH7BNYG4JLVh EHWkNKvsFQF0CVNrDRb4LM IgXFxzcyAzIFxcZmwgXFxu U97akWGoGMmtRrEzICsbmX dqPTJrNLG5DI2NZYHiGeYv N5PPG7kOCC8pFvfiqtMjQW DltzZPPppgLLUyZK5YPUAr XSiuULx9vvIfZWIoViQxQT TjJ11qq6IQi1XnFY7OCAc7 yxDumynhmV9lXGHptuVtk9 IzMFxlcGljWHNiMzAgDQpT sTZcyC5gxnTCWPtmQWCrB0 OlalCuRQrtEBGedu6qcLct IGxhYmVsbGVkIHdpdGggdG jeHLCjvDtefqXfS3J7liDs EV3hFTBKBSPxwH9pAOVuJG YcKUHvIDDtoE5rZET6e9Yw ybCtEQQNMXRdjCfuCA73zX BjZWxpYWMgZGlzZWFzZSBh swNmysKxk85zcoIvd3NkLQ 3itHjtOOfNOLhaJzEpDE3v FGAosaRks9CvLG8cXWMjcE UyZBCiagcgbJReSKw0sTXz TOMcLsWksTstw5XwSBElCV pdDY35kaQhAK3vDLmfTI7v HUqzVV2sEBYaGYCqNVGoFe LsqTSqGaTrjFSnTkAtV69h XmINlFXuy4QbP4qcOO3coH JaNxsrsMPoAOAjfSceh3Vs yUMrMJEmo1OfnWAqBCapFN 6sIIM9Jk2kwKSxFEKjaoK7 m4HiMMdlVPNeVxbbVPItYW ace8AjXIHcwXOQh4SmHD4K XHBhciANClxzYTMwXGVwaW VJa2RaJOXHSeddpQexOkKf jYUwQgG4SZBtqCEkDHQ9XY 1cgSgwMERdLUk7GGzsOJJg C8NqI2KtFGvrIpWnRConHZ YyPQHkTPcaZJVxG6TDPHKs BBY5JnPsGSWkTRq2WUlvE8 XWJGIlPEHdSqP7VQZ6YnZ2 NHe1KQQSPl1kYDbuMjRfKM BoTyI4FIw0JxBnFOHnErZh GRTgMVHmPYzeaAQzYP8ihO nuJHMmMAXoQEP0BHTnrMNK j1AjKWIbXQgbPnOfPZSXZI JUQZ6QBsNCXZCaUxLcaGYt WF4YHEPvqlBoOXmrsSyzxI 8jiGQaZ6aeOdFfVrluhSay TmVzdERvYzEgDQpcbHRycG FyXGxpbjBccmluMFxzYjMw YOGjiLXEo2ByAOSLVcZxMN NpbWVuIEMgaXMgcmVjZWl2 MTCexR5hVv3ceHEzzK5wnU ZlWDyjGZHfh5s4nCS7yZAy dIR9yRBbtQaeSeVwBM9wtY VuERZAXQ78tYRwofXpRNQe rT1yGIVcZHUcDLQ9ranmNI FINRF2tEIej6M5IQipPDD4 wU4nnGlxSePmH0E5ZMSpDC Xgy39aaON6xgHbWfJnXILl pb9pqL2kUOmcoxAanAtwzj Zfg3T9QPXvy0H2NRVnzzEs jIAnwBTtSJGhRwZ4CFRzXo W7VQIxYKRzrWRzTJGhGD3j VGhlIHNwZWNpbWVuIGlzIG WduLQmorWdMTRglb05C3bt QACzpX5nk9hsPiQuTWUvCC DxuCMqcPI2LCHunX1mqD17 ghDwuvJHKX1mrLHfDX7JBF NiMFxlcGljWHNiMCANClxw GDDgHAbwf9InIVtwrOnxCV JfEhNxGOkOyYdmGJULZ4uy gIHvPYzvOGPZARrBT3ZSGW 2RNJRddWQEQPW3FH3hUGke HSLmU8BrZ9BisdE7s8rneU epk6DueAMtPX2jvLOiYL4X XHBhcmQgDQp9 Disclaimer (test code = [id number]) j8gbtSMyMSPub9vkVDSvbH FuZzEwMzNcZnRuYmpcdWMx XEzbopRuPKqii7UyE9QhUt AwMFxhbnNpXGRlZmxhbmcx UYXbXVD5pjRzPUZzXHwqRY NdWXisVu1hsVSrwIipPtTo JPLyf5optpVSRLzrQjKuA3 10ZNFsQXdju1xnx4BoJHPn zQFoh6Q8TVOIfwmfdBp9fK oyD46rp6P9OxtwV6ljMJFz IVQtW6BsQO3eOQOjVne5DS T5PWR1UAEvQTFtJ1DaQM8w JHYjuJNeGMs1o2aavWdkMC LdDNE9g2rfYSfbrlSyVN3w ou4eyNk9j3jafzOmXXUpKL YwpTAANDXyL2HimQftCq6v lFt0eXbsGzbcIJF2Lkp2CD 8chf63bdn1xUhbQLCjxjuq PmS2TDliQQReddpyLJe2LR dfWJBdtCR1EGRcvSLyU3Kg IRQyCI5klhy7QQO6ASimEK XuPoT5MKUomDXrSJSdeCka WNjlo706VHR9KjSnJW0qK4 Njr8O6hE8zaAJfOCQpkXGg QuEiMVMpcg7ahHIhHZuwe6 GsXGQ1wsY6zEHskJShNSMh WV09Fbail3KiZixml1HaN7 0npUH6TSzbs9dnXB4hPsY4 brBkXLxgh5kfaC2aItS5IY joAF0lBA9lDXTnsX5rfufz XHBnYnJkcmhlYWRccGdicm LsAh8hwTppDBR1XDkoB0db yO1fDaJ6BXwjD1hsaN7nFE c8AOsqoOP7DDQvwM9cZQ6p pseoe5rnJIfhNSaqRSXuck X8hyK6PKDpfLUqQ9IvgG9t AOWtYW2ziyphe2gpZFQ2HT ycOXRgPEG2WiHaEVFpn1My qtl7TsNph0SiaKAzIRueU6 4sh599BDZqioPgS5zrjSDv gurynDCylpdtCFsjosF7GD EhhyJri0RgGFFhUHG4SQaa LEckxLCiDOVgnDtgp3asN9 RscGFyXHBsYWluXGYxXGZz MjBcbGFuZzEwMzNcaGljaF rdPSxlZoDrCAYsHIwjT8tq YvLtZ7AnABImOuBhuIMwS8 ggVGhpcyByZXBvcnQgbWF5 TZutD7w1RPUybsYyvXm8dd VkKtCwCVDvQEA6OCrrpNLp ZNHsd5ExziuabXLjVe2cfY RyDSIyoA9mCMBnYNGjNFkm SU4klKl1JRGQzJDlwHRlXo KAVWXfKE60igLkAWJCpzsb w5V3NQrjWVZvc2NzhVBzJ5 nrt1AjUDCvp98yYR5fs1K5 e8hzWIG6OV6da5OfRDForZ XusSVxAIAgc5Cucpoqn3Me QZQzwaIeg8TlPTWlqpGlgD CxTXLixfByfn7wdcNtNWLv QSQnN8AjgufbqQpwonXwPO Yigf2jhnLiXDS2BRQWAVUl ZQZpq8YurD9lyHMBIDG6sK Qypr7blqILlWOhPHLttt54 CBNaFG0jM6qzKNQfQTGqzu DzrNXub7RhTYTegBR1oOSw FS1DChCKl49fPKYmHXKHpq TdMRSayVhusEW7olU0iV6z IChGREEpLlx+IFRoZSBGRE EfDF4zhfFmn5GzsjRozKkf RVJalINqd5LavTNju5QbpF xok0XamROyeDJfLY5vBFNw clxwYXIgVVRNQiBMYWJvcm B3c1HwUKAmTSFzUFL6aFua ylm2KWArcK2iKCYkB4vgck qgTWqbDIXxv7HqwS4fbAVN wAHsb6BubEZsiCKBbMDbXG 8azlLmDIsYDLwXSJQ7rxLp MBGlu8HuOSedS0jdG67zzX tdgXv8lGJ0JOU7hV6gNns+ IFxwYXJccGFyIEFwcHJvcH IiWFTsxBiyyhKuA2XmezRl dM7xxQHslkSrLL2qJH5hW3 M5cCCnLDPagxVbo4ppXBfu dmUgYmVlbiByZXZpZXdlZC Vdr6YgUIwrOLP1RXhiitBn bmNsdWRpbmcgSCZFLCBTcG FpaQPhIKQ2FMzphjWspmBt PP2wcL4xkYzdjC9wdGOhpL Q9vutiVINvRLRlmWudASVk SD2evEvcfY2hKmSzDkSxWR kfWI3iELYtP0oylZRkIXRv JPJpL4qvXmDbpK0uiGakLO xjZjJcZnMyMFxwYXJccGFy XHBsYWluXGYxXGZzMjBcbG FuZzEwMzNcaGljaFxmMVxk WfAtHHBjIUzxB0mmBzIoZ0 SwUJKvJnGpaXTjK9nvVQgb WED0XCFoOQ5gjMQsFY50yN Yod9knTFuljMhgtq9eJ59x oQEmZStcgCluMSAgb17qw5 GrYOJsvjNizq2oGCXguwD0 uT9aNNKzoLmyAOPbfRRyOF Fdd0HiFAsskXDktvSfBQnk DBLzVQMgrEJfbvO3wmMalq CvqaJeMTMpeWuySIQce5Tv TUDvONlhh3Ovul5mmOVaGC UslrIGjCoefOInvL0tL0Oe LBIaYDZxet7dNFPpcN8cDB qlj4JwwzhmZLSlIGLvVWBs olFftv2vOUOvtHPMLW9RXW mgsDHay8GbmpAhP5mRGNH2 NUQwNjYwMjgxKSBleGNlcH KsILXupf54UHBsyM6wdPhp WIHkiK9giS2bdVjrfL8uHb TiGkRxSVxaXT6pZRBhU5nx vNLgAVCzXLAiR8laAzKqyD 9jaFxmMVxjZjJcZnMyMFxw YXJ9fQ== Embedded Images (test code = [id number]) [facility] [id number] 19:23:05* Test Item Value Reference Range Interpretation Comme nts Case Report (test code = [id number]) Surgical Pathology ?Case: [id number] ? Authorizing Provider: ?Dominic Keita MD ? [...] HPylori ? Final Diagnosis (test code = [id number]) [id number] FuZzEwMzNcZnRuYmpcdWMx YGqyreEbRZwaeTifQEU1JK ZgNN8bfDgztWe5vJenFHDb ubN9fYPjDYhva0kbKLW5y1 huihybNSNhUByyAq0zjTHf iRbmJrZjQKLyLKx3cW37LB LfhD8etFWzHDc8YTCstERe uzBmKlXjUMVqgYXemOY1DH UbJL7udzvhGQwpRCxhTLMo pkY3VLZckPVsK1GhLLGzTP 4qqkcfXKG7VNzuWNVfGTM3 OzHlMDFsd6Qbyps1OjBoeD FyZFxwbGFpblxmczIwXHBh zwHPEnEGJI0QEFAMWEHAD5 aCQCJGJF4GMBRRHkovrQIt GEYeCWZkJJUXOK0EOVDsH3 wQYnFpCO6UVQOgKIOkuLKf GNUiajICQqNUQY8FVI6MFA wgQklPUFNZOlxwYXIgICAg TGCiYNqZV2QRWMOnSBBSL4 ALOXvHZLrpCm9hMTWPCV7J N7eSU2MPIUECGN5ZKMjaZA EwBGVgXBKxGP7OSZynFGLQ CF0OOVSEQZIIJVsWLMRMCF KSFChUEBCWG4DEENfOITRf nmluRGBaTp4gZ3HIYOYGMC wgQklPUFNZOlxwYXIgICAg HGInULAMO2KLOdRZSR9KV1 9WCLMOUKXHNJ9WQPYDBYmZ JI7GRGWBGBLKYJJAB8HayC FyICAgICAgLSBOTyBFVklE MR9PGLEGGcWLECtLTARdIE lTRUFTRVxwYXIgICAgICAt AH2NFHdhTHALQN2WMUSEDk dBTklTTVMgSURFTlRJRklF ZYKYBHECRG7ZHm2IEHDVWz xwYXJccGFyfXtccnRmMVxz v6XuN7KxZmYtBDtylpJnAZ IgDhwngvsjVEWeMRQ5pePb UKHxJKwiXVEvRIprPf3kfB DzfVuxLpBvBWAxv7thtfSI ZQekGeWyQ741AGOuUBrrp8 zsx9QgZGEuqUMav8V7IHEX zzlcvVr1h5pyHgBkErV6sH XmVVavD0sdfwYbjLWfT6Qr vLBrcWc1dUkeJ05by4P0Ul zmE1kxRLSwDYQhQ2GcRM5q OLFhCrn3BYZ0JLQ1VBLaWW XmE2DfMA6sRGMvkCSbNRw4 q0vguZdqNAFkUOU2j6tjJB hdgsN2ZM0vny8dbMc6u1dm czEgRGVmYXVsdCBQYXJhZ3 IjpZpzKw5bjNd6aWxuTapl KFO7Wsn6HZ0paq14qrs7pW xiCVBknjrfPqW4LLjaAPNu eutxGAc2WWtgYPLkoKP9CT AlxLIsN7GxBEJcZV8qiia9 LIY3DAelOQPpJbP9UNZcxX RcNHDjkEhgXOzjz592ODJ7 CwWnTT6mL3Txl1A1qK6axI LqPJQljPMeSjBiYXXovz4k zVNaBFfoe6OxRVV3lxY9lZ GatUMhPATpCE55Mrrlo3Io VdixSMH9NOXvzcRlz5Jmx0 cvXnKfniHzZ2xbO2DlOAFk ZWKsMUPdFfDwbcXre8Crv2 PpeULsnTk9r8tuQFHyDHDv tHqiu9emLAM5GBIbM7Q7qO Org0lrFNeeTCMsqEW1rbD0 XGDlnGIlA3InvP5zFJVqOH 3jwrg9c4fnFOF8AMgzMNAa DkC4ypL9GPZokRLaGBNadU fqXAwef794HKV0AhWrIRVz g8FhQ9ZnnWueF10txNdoJ6 1fXDTnnRgjzE3yhXhqoI5x ZjBcZnMyNFxxbFxwbGFpbl xmMVxmczIwXGxhbmcxMDMz CAjyU4cwUyWqKAYkuEufQD vbu5LyKKDjPIHjFgjprlNf XHBhciBJIGhhdmUgcGVyc2 9uYWxseSByZXZpZXdlZCBh kJzdy4YaT5xuKZ1yM8GvvM WjveVrloLdOVxxFHPll1a0 hBLluRmwy1FkvGKfJY84gn RtAAOsAMX8PAQcd9elAU87 ucwvWqJfpM03bjOeplFsTQ Peg4jjD7ruvWOnd5Wou7Mz ceSkWLwyb6IlNG0jbFHijz liwNS5EGCncQSaqiOgohL0 sFhtKADhsU1saI8skOaeqX 7rEbDtVbOiLNflOL0eYYNs X2ayqUOzUWXoSITrU4zsIs AaiQ2ndSxiDdciqdL4ECOa cn19 Clinical Information (test code = [id number]) Shivani Schuler is a 47 year old female with IDA1. Gastric polyp x 6 r/o adenoma2.Duodenal Bx, r/o Celiac disease 3. Gastric Bx r/o HPylori Gross Description (test code = [id number]) c4vskGIbVVQwpXNUAOF6GK GlXG4leKqpcQs1jNdyCFZd wcF5gSLlAIncv3xtAQA2q8 kvubXHLloyWHUnQJ1kDEzq ETXgOK9eYgMmDKGkRtQtNM BhcGVydzEyMjQwXHBhcGVy vKP4ELClZK4ispdxOSznCF qcENOwdhO8YBInkDWtK5Gl UERxSR8kbncwZKP9JDSYLq xgEy5eaQVgwRjpNsXxIlQw YXJzZXQwXGZuaWwgQXJpYW p4eF8LIxhtMXJ9AWBXFged EtartGvcn2MvzSEtZWZwPK xcaWQgNTEwMDAgXFxkYiBP YsDbHnZ1Log6SLV1FbJ1GA i2RCELJNUnYkudNRL5CgY4 CSj4GNWtOL0rGQcalUUfPD miUxqxJAzxB054HLrbRWHw G4HoD2TeMDfzRnClJEtaAV CoFXQeHLomNQXvB6NUMXJi TWM6YrCgWWQqGGt4LOarO1 QXYCNnBZTuYzH3WJStQzP4 AEw2OIPJNj3oZQozCmPlNO d5KAZ9ATg9MkNtWTPvXgIr ZEJwDCEwPOarwXLuWT1pjI rzYMHuQQ6WLKStUEvkGIBy QmVgV9HPZ3bLUX5cRGypeN JjaFxmczIyXHBhciANClxw BPQzHA4TKZPeBOvaFBb0ez WfJLQbLzFiQWJyD73ji4ZH e1KlQG9SSKj3ceJazvgqiZ 2qZMZtdzZwNGbHoGNusS5s qoEQLXuuSXEqO2UhdmDbZO skZAPkax5nwBsyFUdcJrEt bGVkIHdpdGggdGhlIHBhdG xdmyWzI8S1uwFwGJ6gOBOM IUHakK0sLPVqVJNte6RwrW XqbVfoQ9RcdVReXrCuw4r8 fZC9SZVfkzLyGREllYIjVX Rxdl7jZDrhYuKfH5G7PWLb IDFyw42ehYW8sbYjMbJqhV s2eYRjINP2IP1hoRknvwYl i1f4jG7wAMUsu2U3FVQjp0 K5OIZxroDizETwaETiJRYp CN9rtxWoGA39DWKxQKeyUI ycKCA7VHH4HXErvHNzs4cf jgugIs3rHNjuCI8fGPtxHD 79NEAoXIugDUWkG9DuB2A5 QMyiRNIfKUVtlMXzxL5fkg AryyPkgAm3BSWyUXC1jGIn zTpeBVNxXluavCH8AMVdBq YqysLbq4QsiRz9xEVwYVcy VSAptQ0zfS9mFJCyMGTals NKRnytCXQzFVjsp7JgXSch cGljWHNhMzAgDQpcZXBpY0 7yr8WGl1Awv8utlSgee0Pj vQNrHH3mxAYqUA2Ud9xmVJ ObnNAbOKK4WUbna6gzTFog SAJ4IDJwAbMmXZRgWE5YJs MxPDrqIKd8WNmaXBo0OBk1 ER7QSsVbBJDpNtx2SnE2Rx GnZAr9GFbaAP4ELST1WVSm FEIiGLpbHMG2JTDeUTc5YD IgXFxzcyAzIFxcZmwgXFxu G52onSErVUokNgIgJGwsmX ryGGZcRUR8DV9GKHAbWcCx S0OBM0mAPO9mCudjuaYqXP TpqrNONacxJPFbWG7MYAKp HOdrNWg2xfMbYABlGvVdNJ HwH44fi2MUw6XgHU2WCFr2 qsJejvxcwX0mQKYfgwPss8 IzMFxlcGljWHNiMzAgDQpT jYQxwL5vvfNAXPtgRMStP8 MdfiUsJYbxVVMokz3cjKdl IGxhYmVsbGVkIHdpdGggdG blQEHgaNorjtUmB1E1mbYy AZ3wGHMBQXJmhU1mHYVlJP JzLKZaXGUvdR8wONP6y0Pn ywYxXGTHGHGykHgbUO48mR BjZWxpYWMgZGlzZWFzZSBh ktRizaYpi26igcPya1AzCR 1vrOgvBNzDPOekWtIoAQ5t HFCmvwWss9NgZG2hXVObyF CvPWPxusaviPBqWBg1iDTb NNFbKnQknOthd1LqTMOpOS slMD93nmPhCF6dSLekTQ5d ZCafKY4gXHNnDKQfFTSgNh BlwMNqNbWmfXZmBjOxZ96z UdKTdJZng2BfP3rwUD0snC EhUkdlmQYlGAZfoMabf3Ai xOLtRUVkv0AocUUqGEghPJ 7fETQ5Js9iqXJiUJIwtvO1 d5HpJRhfAMTiMjexQAGkBJ tbp8HoPUXurYARa4KpPL2Z XHBhciANClxzYTMwXGVwaW KEb1XsGYINTaddxDvtPoOj oQQvLgW3KOHhgMWuKHV6JJ 7qkZbuBSIzYHb7ZIboRAPu D7NyA9HiBEdfGtShYYbnRT KtOGAtTBntYZZnE1TBOZTs MMD1MnHsEBDgWFq7TNwgL6 UNUSWhCOEfBcO8IJF1IoN3 HTv4JZQOUv4ySMpoWzCtNG GyAoC2QLs1TcEdGXWuCgFk NEQsHVTgPTkoeMBuHO5vtC bvJZVlZDOpPRG9RCMytHZO u4EzRUImTShkGmNzLZVFXD NNEV9IXyKJKPWvDrGpmLJu FN3XWPOqzwJoGXjtyNocuL 8zjMNrY8svQdLwXmuhjUhm TmVzdERvYzEgDQpcbHRycG FyXGxpbjBccmluMFxzYjMw YGHnxYPVx9UsIONUXqTzFH NpbWVuIEMgaXMgcmVjZWl2 AQBmsN9zYu6spHJkeQ0pyO IiUIheOTDfv7b7vDF8nAGe pDS4uGNhdAdoDwSrCR4qaD LcCPCQCS72yIUwkyTgPJXd bU3xKMLcBLGgYDP2xvxjZN MUCFB3uTKki6O8AYscVXF8 mP0haSyrUbUwS9U1LSLzCP Tll83jsJY8tcXrViPrTORd oi2krB0fHOssrdPotFdcjp Ktr9O7WGCiv3X3DARwwoIz uORkpMYeREVxMuX7XYNjZv E6ZGWnFPWqoVUaBVXtXS9v VGhlIHNwZWNpbWVuIGlzIG GzwSGopzWvRFHqma49O2rr TKHflW1cl0hhMvHlAPGpVU LutZAnfAN0OCPxaZ2kvJ07 veTudeLDWY1udNJfDY0LLA NiMFxlcGljWHNiMCANClxw ACCeMMgkn0GaUJksrUcnDS RfHcQiKZcWpWsfBLBDX5wq rTMeYFkjRJMSDGdGG6PPCJ 7USFLtmBFMHPK3KL0pBPmk NKBcY7XvN7IjpvX9u2moeD ixh4YykZGaGW8tuKYlHG4A XHBhcmQgDQp9 Disclaimer (test code = [id number]) s5nddZGyAUUgz8ibLRHjiO FuZzEwMzNcZnRuYmpcdWMx KJqxmqTxAVkaa0JcR4EdHu AwMFxhbnNpXGRlZmxhbmcx POPaHGY3fzEeXMPdPTtdGC OuGSmlPx7qcQHqsDjqPgTi ZXRpj9mzckNGFKauLsYhM3 50RNOnEQtch1qgi8SyQGMb fOSzq2X9XLDGbiuggIo8eK fkR72ks7W2VpvxW1jdXHLu DHEpW5DbJZ4zHAWtPkd2GL C3EBB6HZWlGLCvL3KsCP1p FSPqbKHzOFz8f3ruiIgwXC ExINJ5d3kcCXuakqBfEF4q yu4qgQe8b9lxlgQdLLYdRC EwiNVIYMLxS3TytBetBd8a fBh1yJuzKdhoHJS7Vqu6SW 4rwf61jul7rVmpADDweqtj EyM7IUufAQPiovnlQOu1KU ytHBXhjRJ8CSBsuKEuT3At ZIMcRG6ltpa2GPZ8PGgfWM BqBsV3OAPgtEKmBYJphDbt JZxou634WPM8EoYpLJ5cH6 Zji8L3qY9dzKMdYDZugZQh MjHkIKErrf4bpOJvLDuql9 NqXCP2ncP4vRBzpWBsJTVe EA82Zwfog7ZrSfxow0WsM8 2qrYT6HOsln4zwWT0eEkI1 flBnRJhqr4uroE0kZkJ8AF akWN9yAJ5tEWTuvW7ucnmh XHBnYnJkcmhlYWRccGdicm PoUb1twIxqLLT1EIhzZ8ow gA3uUqB8LAeqG1ofjF5tYY h3TDtzlEV4OPOlrR5qHV9v uhaov1ayXYqkPDwdZUJwnm R6xvU4ECPjuASrI9WueA1w TKFnLV1eadhaa3dcVFC6WS yfKMJpRTT7RpLjOFGof0Ht vxb1GiSnd6MqoEViFLlxL7 5yu682PTZtwoKeO3asvIYi qnsxgLTiwuniIYplvmS0JK XrgdJio0JhAXOqTVS3XGxi DKvynTIaUPYleFqbs4roW4 RscGFyXHBsYWluXGYxXGZz MjBcbGFuZzEwMzNcaGljaF gnXAzrOuQcXRSaPAjbB7ug RcSmZ8PmEVBhElXwkUAfG7 ggVGhpcyByZXBvcnQgbWF5 ZLwuL0v9BQGqqiVuaMz6qw ViDuNcWWFxIFF3XXcpcUWu WNWqy1WlowmejPGtDl3erO QkKWIfvV4nUXMuONZeMKsh BG8dzRg7OINQuSUmzZFqUc SOSHAxTL48vwWsXVSCgfge g0R6CMhuZDGoh0UfjJObM0 gao8YkMDBpj92dHR7di1D9 z4ajEJL4KN7py2FbHRVprN VijTMfNNClz7Izdndup9Wg NQCuhtAdj3KpGQLsprRcwB PuQAOfviNcib6fjmVqSTTz AFHoC1IvcpaleBccobQvYP Cxww8qugYeREN2WDSGFEWf EZPjm5RocY2bfMDPOLH5bT Yqnj0diqJYyQEfSVPdst26 TBHfDD6jL7kxIQVzRCGtft CyxHKfl9BcORBbfSK4dQYn SY3NLeSGj93eNOAwYKERug FmIIGflRgzdIJ6yhT6yD3o IChGREEpLlx+IFRoZSBGRE RwIF3ugbAhw9ZdfoWopFvl ZOPxuOZaa7YszSCot5MliY kyw5CwxDVwlFBqTZ8uWOZm clxwYXIgVVRNQiBMYWJvcm F2y1SnHDBrJGIyCIJ8kPwb vzv7JSCafZ4jHKNpS4kzkt hfEQueWATqb4OkzT8tjKTP qTVhx7OybUPixUMUfSMmJO 3rvxAjLUtOQJvPYRD4faPl QYXuj9BbWIpxJ4osX74qiR rodGf3cJP3DDB4gO3lImn+ IFxwYXJccGFyIEFwcHJvcH GqJPKwgBazzdJpL3XckpKl gP7siQAonmLhUO3lYG9rC1 G7tRYlEWEvcxTlk7ptHYgk dmUgYmVlbiByZXZpZXdlZC Buy9SeRWsjPRT2DKpllaYw bmNsdWRpbmcgSCZFLCBTcG MrnXQsDOS9BKklwyRperUv UX8kzB5nuQntoL4jyIFrnG G1hsbnDFWnIECruVytVDKk OQ0hgDsoaL5vTeRiOlGwXF wkVS7wZTNpD3hfoRZvJMGc ZHQbX1pgKwJbiP1idCmzBN xjZjJcZnMyMFxwYXJccGFy XHBsYWluXGYxXGZzMjBcbG FuZzEwMzNcaGljaFxmMVxk JsIbWPGaLZfiB7kzApMkR0 YeWPMuUiXnxQHpH7amPBgl CVV9TFJgID0lwVZrEY67vL Ehy5leBXkeqMvzky8uZ95u lHSaXRaqjInhWNZos94cv1 QkQWWmbbDyyr1hYPTtmpX2 cN4oJIPhaOszFUIgmEZcTG Qcl2NuWOlwwUGcziHvNTjn FOXrDYPazOAtepW0zjZesz ZcyjVvXLGrmXmzHZMnm2Iw EEAuIZflk5Vqzh0yaQCjEW AhuaITmZzdkCIruP0nS8Wu XAOqGQJomy7lMDRxqU0vRB oaq1AtlxowKWLlEZQtZSIe cnTrix7yENModBNPEV5PQB ipnTQms6FbyfZoS7qNXDF8 NUQwNjYwMjgxKSBleGNlcH QbWLWtlh01ZEOucY1oxAqt KJKgaB0keI9llJjpbB5bFc BgEqHpXUcvJT0eGYZzW2oe dUUdMHZsSYJpJ0zmFzYyqA 9jaFxmMVxjZjJcZnMyMFxw YXJ9fQ== Embedded Images (test code = [id number]) [facility] [id number] 19:23:05* Test Item Value Reference Range Interpretation Comme nts Case Report (test code = [id number]) Surgical Pathology ?Case: [id number] ? Authorizing Provider: ?Dominic Keita MD ? [...] HPylori ? Final Diagnosis (test code = [id number]) c0spnMLiNRUds9dnJVIlcG FuZzEwMzNcZnRuYmpcdWMx HCibhqPhCDdwuCzaTAF7XM GqOS3beXmcrUo1bXwgZXHi xjY0vMQuQPupb6roCVG1i7 mcarhoXGZuDTsbFc9cnGLk wMwwBjCbRTSnJHs9yH57MN UepI5phAKsHTl4LQWnpSKx zoXxKyGdMWMmxZWlfWI3UI FsMY7nglbaYUqoSBxjKQEa gzO8SQOgsTZtQ4JxIHBeHK 0fllzyYLA6XPrqLVXaFPA4 JvCvPTPyf9Nnxev3GjUgoN FyZFxwbGFpblxmczIwXHBh vgHBZqCAIJ1RYWZYBKTKC3 nYETGSPB4RUJATKplmzQKs DLRpVLZzNOQTHP2JQPDeL9 qAYfUuQX8RYBEhRDAeeMUk ULMipoHEHvZBOZ7ZQD4POB wgQklPUFNZOlxwYXIgICAg VOHaOTrIJ2BQDNDqIQQFP0 BEVKcXMMyfMp5jFSUPSC8F U6hQG4WUNNYWDN5CQSjqPW FjLLAsXPUrJM5AVFmhOOID OC0HVIDMXFNYBLfZQYFEXO BNCEtCNCLDI5WFFWnOESQp bzeoEFAiOp4rJ8QAREHFEL wgQklPUFNZOlxwYXIgICAg LYQnSMTTY1FATfWTQH3PU8 0WKRGKRUIFTN0EEUZGPRuV GT3GAIRNJACDYTXXA2EqjC FyICAgICAgLSBOTyBFVklE OA8RMYGMPxCSMJiWGDMqJZ lTRUFTRVxwYXIgICAgICAt MJ5CLCejBKLAMP5UIHSWKw dBTklTTVMgSURFTlRJRklF TWRIJOMHBC1DEt7HVXSOWe xwYXJccGFyfXtccnRmMVxz o7KsG7OeRaIdIQdqsbEiKB FeEdoazgqhXGXbTCT7jhLu YJCeNNruDFNaJUdaMz4cvK LmiQmjCrPgRIWdu3uaixSJ KEsxCpTrL683ICDiHHcyl7 dsh8WjEVMkpXSxy9G7MCCG fuqzwRz2d7iyImOdVfM3fB VjGYxeG6zleyPibWGpB1Wk mPJdkFq6cZamS53bh4Z7Hk kqW9zxKZOaIZQsE4VhOV7n IZKuHdh1FPE7UMX9JMAxBM CcY8BrJX6tVQUulCRzMAp4 q3epgDxkUXPrREK5b1daNX kjdiT6IN1chj6uhMi9f5tk czEgRGVmYXVsdCBQYXJhZ3 EgcLngXn4aoGv0gTlsQjug RME5Kca0PH1jue66ojk6fD ieCYSosnsrZpR0EMowTYSn hgcdTZr3NGraITSubVM9PK BeqCJmB2SjABAjXD0farp1 CPW0ETnoPKPtCcC2AAWubE QrPFQcfLusCUpjh534GBE5 SwYyBT5fD6Xus4V2gB3ehJ GmLWVtxLVoKqOsPDYspt1a gEFrCOegf8EyEOJ1mwX9eT KhrRXtNDTqKK94Tvyho1Za GeclOAE7OORomrBuj5Prq1 czYrMumrEfS6zgY9PdGULa APLxJFMbXuIwxfPkl7Itq3 DloHIeqRu0l4ksDNBtGGXz nIfen3liRIX5PALhN7U0jS Eyx8teCBpgYZCluNQ7urY9 TUVxlQNmM4DmxK6uLJVuAF 9gwnk8h4kmGLS6ZEanUTCj DhY6apJ8FNRsjNUlRESxpW laDZxxz301ZYY0OhUfDXFc y9PfL2HvgEptX24uzIxsA4 4bMRSyoZecvB4zqRlugI6b ZjBcZnMyNFxxbFxwbGFpbl xmMVxmczIwXGxhbmcxMDMz AIfoY4bpBqNyHXBlvQsrQJ ikl1NmXJJjMKSwKbdpriRt XHBhciBJIGhhdmUgcGVyc2 9uYWxseSByZXZpZXdlZCBh nIhpo2OoJ0ygCT8cX1EquX KaxqWsfiNfVDjnWCZnh9s5 uTNbvVogc6QtqPFsNI93rr AkVZCqQWU6COGyh2jgZM13 fuahJuTfmT19bvWjamHaSO Nfy6zuL9bbpHNey7Sxq2Gz bqBhHYncm8ScMB9xfYSasz ydpYC5OOOieZGryhYbhkX6 yPouPYVykF5nlP5jpBldxA 5aPaJtGhOcAKwwMZ7dYTOb R8idrAFkIAAqVEMkL2qwCw YsoL1yuThlJyheodR7OMFf cn19 Clinical Information (test code = [id number]) Shivani Schuler is a 47 year old female with IDA1. Gastric polyp x 6 r/o adenoma2.Duodenal Bx, r/o Celiac disease 3. Gastric Bx r/o HPylori Gross Description (test code = [id number]) w1sbnBUgHKLjfPHLAEW6CM YiCP7ziVulrYg9zPfhHQKc goG1iSGtWNrgs4jpXAK5g4 ebfwQBHoovIANdFX7jGJtp IGQaIZ0yOhYwYYGtRtReXM BhcGVydzEyMjQwXHBhcGVy jCG2TFNsMO1efdxbXUydXF eoLETfhqT5YKDltQWoH4Xl TBWfYY5tdcncHGP7QDNVCh jyXf5zaPUoeOtuCtMgPmLw YXJzZXQwXGZuaWwgQXJpYW h2pM6RJixbVYK5WCFBCbom SxskbFxym3XilZKvWBWmYI xcaWQgNTEwMDAgXFxkYiBP DwAgKzR3Zdm5JVQ8CmX6SC l8RBDNNOVwBqucAEH2PiA4 DAs5XKFyLF9jHGakaPZxIK fjNtjyYKriF789BQuwQTLi C0AqP4BaEIkuBdToIAamCP AqNPJkNOuuZCIoE2BNKXQn SJX7ZlCjTGGcSJg6MGdlM6 ZYWJIdBLQuWfC7QQIaIuE9 WUj6HQWXTi0wDGmvHfYeIK m4CXF0BPz9UrEbNEIoSnOf LBSdYRCyJWranMRsIG9jlX fsIANrIP8RPUBnILydMPRl NgEeC2BVJ2hPDG6hFQtpnG JjaFxmczIyXHBhciANClxw VWTfWY2UUGCmTUipOZj3cj CeQKVmQtXrEIBzB82kf3GD e1NuLF5SNAs7fmCgizcyuN 2iYZUyosYoLSgPvOEzoS2a tbCSVRnjVHRzK3CmueEeRY ruKGZgxf1grKotNIksWsSh bGVkIHdpdGggdGhlIHBhdG ytpzGsL8J8jfBkQY4aXAKG YAVecP4qBUOnKXPbk8RyeB ImkCbfD6ZyjXTgWrIky1v3 wBH6DYNnrjZtQTXthUOyYI Stbn1aFUukBqEmC3R3IBEu ZCTue24mzNR5chTfTrNqvG y2yRGuHXR8PA4jbDrthrZt v4l7xH9vURUct0N1XLCbf8 N0AETycpYdlWCcaRTcGDQw GM1zdrPlTX32NNPjHHtpYN ckIXY7LBS3SZOtwLQbt0ea tiwfXe9hKDkfUG7gAQyyUX 85QTVbTIyhCHQqP6IiQ9B5 SSagAFDqXTPdpGTwmA1zdk LvqeXpzHc2OEJnHQN2gAAz wTunVBXkUdmynTE2KHDaAb TijoQod5YyvHc3sPSyTXfu UIVonL6peH6wKWPaJDUklu CGWcmnGFMoTHudz8KnCNzv cGljWHNhMzAgDQpcZXBpY0 4gm0SWs7Bto6onvKefs4Hw hJNoAR9xeMQlMQ0Ab7ftNM SbyLBhIIZ8YQxap4dgTAtr DRF2EOQrWoXiVWCzAR1FYz ShBNodQTb4YFyvNGm7YZb7 NG0UXfUfTSKuHvp6CrK8Tn NeMWu3TQwnBR3NCXU3UCMx VBPkOQigJWB0EAJuKKl2QH IgXFxzcyAzIFxcZmwgXFxu V79geMGfHNsbJgJmIUmnaZ tqYAUrAOC2GD6UZOVqClUj Y5ZTH3yCWE5rDmvarnSoBO AfmqCPPoeoAFHkFE2ZWOHf RZioRZz8gnFxCFBmDaGoKK MmA52jc9VQl2YsOK4WFHm6 yaLinkrpkD6cDSMxzyZjt8 IzMFxlcGljWHNiMzAgDQpT lLSbtV7ntfYAITheMWNiP7 KjzqYyMUthUXZtvo8yqZln IGxhYmVsbGVkIHdpdGggdG fyPRWshYbeozNyI1Y3eyNh JC7kDUJSXQRbgX6rZGXzDR ToOGGhPNWjrP7mQGC5i9Nc ycPhTVGSHOWneEqzKG51lO BjZWxpYWMgZGlzZWFzZSBh jgSfkhRrn07biaPmk7HgRU 6gmTmgJSoTVHluWsFpEN3e ROFwviKft4UnKJ5lOUOuvW EzMVYvhevrpDVqOWv4oKGn IWHwPdJdkBqsy0EvINIlVF cvGX76owNhPL3sPAefOE0c OHobOV6jLGAoJZZwZZWiMo QutZGtApEsqSNdKyCpF73a MhJDrZWdn1GjK1hmFW1erG YiMftmmQQkTTDtwHhru2Kz ePTbBYUla0EetBHvBEqnKT 6cELM9Zs0idVVxTXZxnnI3 e0KdTIvyVMQqJlomXFMfUA xyu4WeJXSvuWINl8WjBZ5Z XHBhciANClxzYTMwXGVwaW KCy0YmLLYGTjnnrQhcVqCs sYMwWpP9TYJhqRRpVIC5SA 2riIurAROkRDk8VOxzEMGs D4UyZ3IdSMzxQtLlXNvuBN MnNLEbSHzhACRzV9SHHGGl PGD6UvYuJBToXGe4KKbpM7 OZOFYaKEVrXbM2BQX7JdF1 UHu1QELGFv4oSLwbLsQmTC PwVlI8OLl7HbLdILPaImTl UKPfBCPgFSxrzCDhNN7rlV ldCRInTWRaIVA6QSJiqGXJ q8TeWINzUZlpNrZwYKJNHC BLIK3KAsEGKAVdVkHjyHGp FB2LVECzuwPaVCtdkDaffB 4tfSXgB6leFpBuPrphxFez TmVzdERvYzEgDQpcbHRycG FyXGxpbjBccmluMFxzYjMw FRYmoBWZj6TvRZXQCjTqPH NpbWVuIEMgaXMgcmVjZWl2 BSCmpF0xGn6lpPPubG3htW CeAHzyBZSgk0a6qUV4uKDl qGE8zEHgoMyySaVtKV3btO DjDXCZHU11hYJtqhYmAKMz nZ9xJCDbWTMgXSF7unerNA FQLDM0jAYfg4S7ZXvdNMX5 dD0slZpjXwHdC2U1DNFaKZ Khy10pnVV4raIkSsYeSDYo ma1ikW0xJBkavqAbtBtzda Vhu5I0XUEru7W5UIKhpoGw yIAvhHRiTWIgTcR3PSFyTc R4YGNtLNQirDIlLDNoFC0t VGhlIHNwZWNpbWVuIGlzIG OlbGPlhyDrJELzzj36Q4xj WIOijH1to7fvAfZyLPRqJZ FhrPHchMT1NJKjhK1boL33 loAerxFQMV6ipFAcPW4QBU NiMFxlcGljWHNiMCANClxw TOWvNVcyr1BvMEkbzGvpVN JdCaCqEKxKqBfxVPOTK3gw yVJrFVwrUYOEMKiVE5NPEX 3HRIBosAYPQES6HV3kELvj JSMqE0VhQ2JegrP5b9jwlM jgu1AtdELeHG6ebWBvDF4H XHBhcmQgDQp9 Disclaimer (test code = [id number]) w5yafNTnPAOry9xqULUijH FuZzEwMzNcZnRuYmpcdWMx ZYcpkhAvVWfie1VkV0DiSt AwMFxhbnNpXGRlZmxhbmcx XIKiTLA5idOoCSUkKMamBC CpJHjhOj1avPOwiLkxYfWg CHHbz8jxxxPDTBhuJiYoB4 66MZXaSTfzo1muc9JnZVQd eCAlb6X7SVILkbxdlVq0tG roF82gg8S6OqpfE7ryGCUu SGFdZ0AhZP9gVKHwZqa9EM Y8JLO3KVZxMEVsQ5YdMM9u RKQpuJAnFPb5e4bvyZgpMH WjFGU5z3nhNZgwrcJtRT1v wj9kvGp0m3dbdiVfVQMbJP DzeVYBTPPhG9SznLfcIc7d eBm5hWhsSvfeSVQ0Fmo9CP 3lqd62rcn9eWgxOOLtkxxy KdR6DDxaJNHswlkuYEp7OY dwTODzjVS8XXZwlUUsK8Kt VAMqIT6tzbm2ZFC9HKqdJL MrHkD2SVNptOKjZGDmcZpy QArsl680QVA0XpReXY0xF9 Air4H9fS4zbIOmNQZfbUOk NyYbPENmlk8rnAHnBJnip7 VkURV9aaY0oLLpqLBrKVTj XA55Iyofz1PdCzdgs1SiN4 5tlVA2DJeph4clAZ6uDbW0 nzCbLBvtx5ymlU1wUaY2ET llPU1aCM1vJFIexZ7axims XHBnYnJkcmhlYWRccGdicm QqTd9zyFjqUQF5TRkzV7ed tH3oOcL7XAmlY3eqxJ8mJV h9NMdouDR5CJTdzH2kVW9x wjwyr6zqPYgiHEciYJFzsa C5ljC5BZDcyJPxV9PrzL1e DBKzFL6yzlzfm0yfDAG9GF rhYIZfYYJ9GaGcLLAhv8Kr imv2RjLne2WzlVWcZTnzA1 2rf320TQAsujEjZ1dagNWy mfgaxAWslkolVEtuabI1ZX ZzoqJai2UlRVXxNYZ6YTds BNygcVKhAWXzdPkin0lfN8 RscGFyXHBsYWluXGYxXGZz MjBcbGFuZzEwMzNcaGljaF wbNNsiSfMxWYVjJQtzO3dv KuSmC5VgFTQvXkWnqGJiR9 ggVGhpcyByZXBvcnQgbWF5 VBlyI0k1LOCowiBnhMm1uk WfBpFyMBDpQJI2NPgqrGQs RKZer4AzxffidOSzUg1tuM XpZQFejU1vUDLyPHFcCSgj IR0fgYv5IXTSpPTndVJaAg HMSSHaDS67rhEvKVQUnjyo l5J9SFjrJTUjq0DknHVlQ5 ldy0QhMDPpg21sBJ1cj5Q7 d9joOCA5RO8vw0AuDVXlgM IekJQqCRHtv5Hbumtjs3Nh BFWpcjCuz3RkZWVarsWsyA PuWHXswqRfmp7cwqYvRGPn VYMsE7NkhzjglJvtksBcWK Shxa9efmPmAKC0JQCJKRXu DALpf5FrkN3xzBJJJPR7hW Bjwn1ljqIXmHXfTXZgwb07 IONwMU9jV3waIBUhBHGcqy GhzVVio8OfPVIaqQK1dSYn AF6YQyWBg60cCQPySFDBwc SpGAYslOzntAP8prT8iK5n IChGREEpLlx+IFRoZSBGRE VpEM7svxObx8SvvaTrrHlw HOVncRTkv9HpfVUgb9XmhC bxd7MgmCRfvSOyIR9zEFXv clxwYXIgVVRNQiBMYWJvcm K8p6IwKBXeOOBjWXV9tSok gmy1ACOjfB8sKPDuX4kmxk edQAdrLWRik3VciF2mwHGP vHLok2QvbQFccRCYaYSfXZ 3vnpBeVNeNSJvOUKY4sjPi ZMYbk9NnCRxuM3tdO04hyY mqnDo3xDB7MOX2qC3yZkm+ IFxwYXJccGFyIEFwcHJvcH BhKHVtnEzcuvGtX1NegcEl iI1mjJXujbZtYF1pEY9fI8 P7jOXzYGMyrfUgo2luJJef dmUgYmVlbiByZXZpZXdlZC Dta1ZyKXmzSTY1UCokkgMc bmNsdWRpbmcgSCZFLCBTcG XtwLInCIT2DXdkljQpvxBv LN0szD0frEofxI1nsCBjsG H7akmzDXYwBAKzhHibRUJz XR1yaXtgmL6iWkHqMdDcDH gdZU0bSVLdL6gkqDPpRTDg ZYUhS2knKuQqqL0elQdjLO xjZjJcZnMyMFxwYXJccGFy XHBsYWluXGYxXGZzMjBcbG FuZzEwMzNcaGljaFxmMVxk WrYpGBGdEFyjQ8wlKkAlI2 FnPARzDhBadBWuN3qnINzy PIH7KTQxUO8beLKzIG30kO Dmj4puCYldbXmffh9vU49v nCVjGXxwjFfwJSPua75fx9 JqDJBqtpFbud4gYSUqotY6 gN7mEZPkgQxrQZGkiWRdGG Vkf7WhTWredTMpemEgJNfk RPNwWWMnqLQjahX5rqUohv PgruJlWNHxeDuxJOFbx2Jz OTCrBBdhd3Hvta3zhABmEX PkoaULmRwclKTgmG1fK4Qb WRGeBJIpom9eHMTlaL9hPV qrr2HqottzNQKhAWKpSTAv axZxjt7yENKfgWVSJM5BRO sfuKAkv2HxqeYnY2bTNZN2 NUQwNjYwMjgxKSBleGNlcH GqMRDzfz13QXCwaO1jsRqj EKCvoU9whV1jcIwsnY9bNr DjGwHqFYagAX5vYAFnJ1fs lOGfOATlVWMwR5xmUrUzwM 9jaFxmMVxjZjJcZnMyMFxw YXJ9fQ== Embedded Images (test code = [id number]) [facility] [id number] 19:23:05* Test Item Value Reference Range Interpretation Comme nts Case Report (test code = [id number]) Surgical Pathology ?Case: [id number] ? Authorizing Provider: ?Dominic Keita MD ? [...] HPylori ? Final Diagnosis (test code = [id number]) f8vjxOIoFXAyw2zyFWLquN FuZzEwMzNcZnRuYmpcdWMx PYdhjpGfWJvhxIzoUHF9EJ VbAH9ssPcmoTr7aRlwNKYp liD8aTTdACgwc5foMMF2a8 umnuovFCNoZFvcJj9cwWTk cSooVfEmNZIqWCj2fI36PF ZduN2tiXYdCXl7CCUdiDVc nrGlVvWiQDDbwJUzbOX2KM QcOC3pyilaYQplXIchOGXp poD2TVQomWWdO5LdQZJaKI 5ajeajXOF2TRpaFZSqNET8 IvMqESZhj9Ljjaw2AnCewT FyZFxwbGFpblxmczIwXHBh upHZDlQBFX6JPEWRUHIJC2 zRFQQRLB3BBYQOTbefdUUq RZKeQPCcJENMIY9CTSDxW6 zYSiTySG4VMHFvLMAhzRAk CLTtfzALKyXLUQ2JAY1XPM wgQklPUFNZOlxwYXIgICAg WVBgTVuIX9VCNMHxTFAFY0 NMBObPEIwcFs8aSHANEW7D Y0nHH3JYZKLMJN8JMCaqKJ EeKGOwOKPxGS3QTHkdSCMQ DW7DIRUPMBISWYlYJNDOIL XUXRfVRDRLG3JRTRnNGEAq yazpTDCrBx1aX5KIKNYLOD wgQklPUFNZOlxwYXIgICAg IDPfXYZCP7JYFvPSCD2IH6 3RXXWYCBOSQN9IMLTOUJyS MP3RHBALPCLUQHMJD9CzpA FyICAgICAgLSBOTyBFVklE JU4PQIGXIoHBRKkXEGChUT lTRUFTRVxwYXIgICAgICAt KN9CHQvyQKWWMM3KUJGCQk dBTklTTVMgSURFTlRJRklF FMOOEZBFOG7KHv4BEEHPLg xwYXJccGFyfXtccnRmMVxz d1NqI3UlLeYoRNbjgtDsRK AzLqqfeczyLBOmGJJ9qeTk GNEqPZhmQENyLRpcAi1ytY UihXseYhJmEHIel2xcjyTU MNwvKhTsO275YYRmSQjis8 zvb2MnCKPreHMmi1H9WFHT qwpsnQr7e8iyHbTpNcG4rJ PjZRkfD3esuiIccKFcP0Kp uOXkbKj1wYoqX64xm8V3Gc zlR5ynYNTgYGSlU4DdDY8i SUAxWov2FRZ8SYF3EXZzBJ OxM7IpPF1lWFTfkMFxXSn2 x4ttqVbyFHDrHOK5i5qeER nzlrR1YR3yrr6fiMp0v6pz czEgRGVmYXVsdCBQYXJhZ3 TxuQsrMu0muWv2oIzbYkxn TBU9Dpl9SE0jlx25xiy8mG snDFGykobkPyZ2HMikHLOp jrdqDVr5RJkuMBFhrHV3HI BpxZYrI8NlSWXqQS1sokp6 MZD4TWebKDYeEpF9GJKwoP BrNDWcqZghQMzuq644UZF9 QyKxJN6vM1Jmz6W4mF0myR ZqNWNgrHXgFoNcSAXupu6y vLMpHIvgj1ZoCPT8waX5eP WicAKdZOXtUR54Nunsk8Yw GrbdXLI2JBKjafFof8Raz8 uxPtVbihNuQ5ruV1KzXCOf ZNQdFWNqWtWnlmQko8Evp3 AkdLHpmUp3f5yuQKBnLXEa iHzcx4qiOYV0XWScZ6V4fC Uvq0ouVAuaQUVejXT5wxZ4 URVswEFbK6QfxG6qTOKpFW 0vqje4w6qpXLC4EBwaSLIa YhU1saX7GBNbyOElNLZtsY epVOwla780AVK8ViHfAZIc u6XpJ9FuoZmsG29idSqkJ4 8wFHDthTawpY8jzIurmB1q ZjBcZnMyNFxxbFxwbGFpbl xmMVxmczIwXGxhbmcxMDMz LSgdO6wxEwZlLYDlmGuaTL ulf5KpKILtYRWwPaduefVl XHBhciBJIGhhdmUgcGVyc2 9uYWxseSByZXZpZXdlZCBh pZogs1BwG8zhZI0qS7EgtS TaogCsqoRxPTzqLLWvk5e2 fCLspFgvn2JlgZFdNJ12gn RaAIVrPXS1QXBnn0boLJ59 ckfrGyUwaP45biXtvdHgDK Lty3qkL9booJPjb6Jrj1Qt toPkYRffv3MoJX7tgANqif ziiJG3WIZlkQYaclOwhmA3 yMowMFJuhR0dyP9epMmgtW 7vWrRjZpRdWOpvYJ2sZLAl D7mdbDXtPXOwKTVbA8pyWf RpnN9flVwhYdoettW7ULIu cn19 Clinical Information (test code = [id number]) Shivani Schuler is a 47 year old female with IDA1. Gastric polyp x 6 r/o adenoma2.Duodenal Bx, r/o Celiac disease 3. Gastric Bx r/o HPylori Gross Description (test code = [id number]) t0ohbOUeUWMyxFOHHJO0RV AuPJ8fiJhnjPd9jIgfMCLw mcY2mJTiEWnrl0kqMNR7c7 sqaqMCXkkeAJVvAN3iYWcn AFQbMR4bCdNvAPVaBdCeKS BhcGVydzEyMjQwXHBhcGVy hLS2NEFvPS7ouoxsYMmgZR tlHXSeesU4CPSxxITtF0Ms DHJcNJ8awaesZDP0QUBFTg nfQk4amSFeaZunCeWrQyAv YXJzZXQwXGZuaWwgQXJpYW m3wE2WAmlwIBN3FCKCZlaa VppnhTurn5AcjAQzGQHwJA xcaWQgNTEwMDAgXFxkYiBP OzTmZsU8Mcg3QAV9FjU9ID a6AETNPRNfEazlCCX7SjG4 FQf4ZHClOJ6bOQosqHEfGS imPocsNGldE069JFngXLHz Q1DtV6AdVFysYiCxUBifYE DmICEeDOxsLUOcA2OYEPDw BJY9HhUkFAVpMKu8ONcvU3 RPFNAqDPDrFhN9YKFyTmD6 ZFu5NJNHYh4jFAogRdKhXQ i8MOT6QLr3XiIxCVCoOnJf TUHtGQYdYPedwBPwTD7kfV lzXFVlJM2ZKSBmVAyxWEWa UhDeT7NAO8yBQD1qIFzkoU JjaFxmczIyXHBhciANClxw SSUuCP2SBKPoONxwLTm0wp RrHJJnPuKjANIzW56yk8JM o4FvGQ6LKSb5crLowpjhgZ 5uHPZuvpMvOQvXcFOobQ3p xpWSPRhlYKCsQ3MfryIoLR gfZUYyjh8sqMdkAXnaInGz bGVkIHdpdGggdGhlIHBhdG rpozUzR5H5bsYzKX2tAYRI MIPwsR4bCHEzYUUbd9HwzB TklLemO1KoeYKcOoYmi3d8 aJQ2MFHxdsWuPVIzgFIaSJ Uuqb5oJDbnRbKsE6I7RILw YKHgv79lxXE6utTlGzXxjY f4yFSkVHH2KD3izSzuwrUz g3l3hW4zRLSkj5Z4CCWzb0 Q2IYRkerNogPHtmBVgWMFk VF5xpvPpCH80JSBkAGhfUD akMUB8MRF6PLIjcTZom7dk xwwdTi2kMPyiWB6qKHtgDC 01BWEsLFdvIYRoG3SyF4M5 HJitGSOpPNKwcTKpfM9xrv MrofOtnJx8KJZvSLE2rYEj wZpiMULgEbonqTK1PEYsHq TvpfFbl4TthKh1rWTuWPts PXWdcU5hjO2kUDXeXSXfga DIFopwPAChUYlty4KzYTwk cGljWHNhMzAgDQpcZXBpY0 1hb3ELm5Oor7vbkVurl9Os qTAuPS5glUEbJQ9Yg4ruOP WcqVAyAPK6TEtmy9xdPGxc QNP2ZPTfQzHoQHLnDD9PId UjDUieCLn5ZPthNHv2OBt9 AV2JZkPfCJUmAoy9EdE7Jl BkBHo4OMsuEC3HPCE9XKFb LFCmSDysZLV7MPJxBNm2KJ IgXFxzcyAzIFxcZmwgXFxu H08zkYYzSEsxOdRlEMwoeH yuJCCjPXP5ER7CYICoUtLj U6JXV3tWMY9rEezracCeQP LthjJQSxmyWYMaRZ6SKSHk UJokVSc2bkSfVJHiZsXlDO WpS03hk0DXe4XkHK3MSYy9 jwPlpdzliL6pMSBqusCvd2 IzMFxlcGljWHNiMzAgDQpT rMGysG1egpAHYZtbMAXsI9 KhgzWqXRzpEJLyrb6qqCmv IGxhYmVsbGVkIHdpdGggdG gzHQLjdVsmwoAqU0M4gdRo AO8gJFNPBHDmaD0fLCTwCV FoKAOaEQLvpS1dCOT6r8Zx paQaFDJTDWYsaPeeLL52nR BjZWxpYWMgZGlzZWFzZSBh wkSozpGxh63fedPdq5TbHL 7tbSlmMBeSZUctPzGpQO9r OOOnnvSvn6JkWA2aNZZwvG CcIDVipwpaeQHdYBd2rFIx BUVnVtKnnIhxo2IhYAVqWK inUO15qqNpVW2gJCxlGB6a VBjrHM8fVASwTWJdGGCvZa AzyEDyCsQrdWZvCtLlX50j HiBThVWoi7XlD6eoSQ4txN RyInbyiFQvRMKduXhom3Wh hUPyOWFsl0QjsBTcDYakZL 1uJRN1Is5mtPNvNWCgpuA3 c4FrAOlfIRCgJokfOCHdCC cmi1ZcSHKbnCPTm9DdNR7W XHBhciANClxzYTMwXGVwaW RRi6NmGQVOHmaizWuoKmSh sCGfSqE0DTBxsJLyYXC9GW 4jrRzeNLAuOYw5IHvfFRQk X0NiR3EyCLqhNaPsIBbhSR HkBCWoXPxlLDGcF9XGDWSd GKJ1NkTmWQFaKRb1KQctO6 WSEIZmSRTnIyV6CZA7NqN6 JAa3EAZAQt6xCEfsYfGlBT YaPrA5FHv4VmWiSTCvEfOr ICLgNYWbOZmkpHWzUE0srV lvDZXiUAJyEVU6MTSvsGKJ h3HjBKNdWWqgOpQhBXSJAA CYTP5CQlJRQBZcVhMemXXg RN6IGPQwryWaRCqbcMqmgD 6xfAGtN8riSrKzMjycnMgx TmVzdERvYzEgDQpcbHRycG FyXGxpbjBccmluMFxzYjMw UNNpxLMTt8EtOGRAKbSoIJ NpbWVuIEMgaXMgcmVjZWl2 ADXclJ1cFp1qlEZeoD0lyQ TjBBagZJIla1k9sLV9qHKu kBX7yRXdhGitCmXtNU5jlF QzDVOJTQ34uTTddpOnDKFi qO4kHRDiLDVyTAF9aqsfMD FWGBJ1bVYwp0U5ZXqwRCJ5 iN7lwGmaYcUlM7A4HCYlEI Yvs82xuMR3fqNkRsWhXWDj ff9juQ5vFFxihiQqpXdyaz Cco8I0FSUvq2K5QNYofbZe eTUcdLFqDGPwPlP5OYJrWo M9VADfJQIrkGXaVODxIR7f VGhlIHNwZWNpbWVuIGlzIG SflAUyijKgSSHnxr03K3cb ZDLprL7wq2lcImXdSXLqEE IaiNLxmJK2AKTtlD9bsG43 ujJebfGFLO5pnOBvFE7QQN NiMFxlcGljWHNiMCANClxw IVXrZZwwd5SiDChzpAcfUU JpRmGcMTnLjJrqJZYUS0ch iOLsUZxkYNVYDLlVT7SZSY 3RRLFyhMDJSIZ5ZN7uFYfs UEVjS6FsC2DirfQ8g9braF kwl9GbvSTxBH7hxFLfDI3O XHBhcmQgDQp9 Disclaimer (test code = [id number]) n8wojXZwSRCis1tlAKGqkM FuZzEwMzNcZnRuYmpcdWMx UNhrtvJtSZwxk4EfX2ZbCj AwMFxhbnNpXGRlZmxhbmcx CCMnQPH5ogVlVTGbIRrvMV ZgXXapPi4pcNAejXflJrCz DGNwb8uczwDPAXguFsCtP1 60WBCzKGcst2gqu5JqUJQa lNGma0N5GHZRoubysDb9sO qgD27ih3C1NorxJ1xtMUWt HNPnU7StEA4pNJNgHkl5RO A5CRQ4YVVqZFUfL7XjLR8e PFIjxTJaGVs8r3xjjUcjIP UcEBL0x4rhFGujwpDnDJ2v cm2uqXn6c7mkzbZfFYMxNA OblSLDVIOqR7JbyTqrKt8j oWl5uTduDyazAPN9Gik4ES 1les85thh3gHkyLMCbfjvp IlS1AVidUHDalzraYZw0RF cyHOFewNG5ZRAgsEQfP4Bi XHYpCC3bxiw8JPZ1IUhjJQ HhZjS9RZVkqJMaBFYejTjt FCgch497QHY5CdPwSQ8tH8 Yua3X2jK7dpAJcMDJjjOWd QkZbIQFrjg2thKOiXFtyj3 WpMNT5ezI1xPZdoEOgNRGo QC15Coyvx5CiQmcae7LkB5 0abHP6ETqox4ugFK5mDoN3 flLtSFcgu5jrlF4zHxX4FO bmCF0uZV0mXCHotF7mtsvl XHBnYnJkcmhlYWRccGdicm GzZa3olNdkYHD1IWxzE5lj yG3eGpE0AXqjX5kdyM0lJX n3QYzkeCL8WOVtqQ0uQA9j zgjqr5qgKLkiGNdeXJHcwz E0rxV3NMKigJBmP8YesK7a MVUyPE4qmjkox8icAOS8XV tqCHDuIZT3VaYgXWSwe9Aj wlg7HqLpl9IcgTPkTFzoL4 5rg791LKUgubPlM2rijPBi jinybWCfmlbzVEldenS3GF XnhvXlq2QdZDMhSPO5QBmo QErqzZFaFBOytSptl7tdN9 RscGFyXHBsYWluXGYxXGZz MjBcbGFuZzEwMzNcaGljaF xrOFzhNbWbQVSaMGhlB2hz OtKaM4YiLDDkJxUcrMTyX2 ggVGhpcyByZXBvcnQgbWF5 XWazE1j4JIMjfiXrfVz6bz SdRfHiLUOoVUN5PVmvbSOc MJRoj6ZzjbekwAGpOv7liJ RjBBVjhI2cUNBbGTRbKMxa GC0jaCg8HEBOpSIzdMSzYv FHDBLxPK39frAjOULTstfd s1Q8PFiwGJGnt7FerKXvS2 qdx4VdFPKoz71bAC3jf8Q4 h2tcFPN9FU9hy4OgWYCebA VrrOXpSMRoj8Msxfnnt5Yc LSDhddRsq3AvIKRwxuQzmK YmBVIwdnRprs1boiRvEYHf NFXjT5RafimnhJkzpwYhKX Opwe7fcvNrNLF6SUAJPELm ETOkj4ZisN0tdMYNRNZ8mS Tkfk4ybwPYxYHjQESbuy37 WBCfPZ7vN0euALRzOZBrbd BqnTJcb5MbBXGsxMU4vXEe IV4PCsSMn92wWFDmVXFTjj TmRONaoYokfXZ5ioQ1iY7v IChGREEpLlx+IFRoZSBGRE LiIZ5oreQjm9KrccJluGib IHRhkTXef0OruIIoy5EqwQ tul5ZebDTqrCQoUI7zDITv clxwYXIgVVRNQiBMYWJvcm T7j0HrNFHaIZQvTLU3fGii lte5RVEtjR6qLLKnZ4idcn pdQCecJEPyh0TtkA9lkHTJ pHUwg2ImoDIrdMIOgOUuBZ 9bdrKrMOgRNSbPAZJ8gdMx AWGop7HxUYyxV7ijE40uzS mecFe0fRP0VBL5kO5wWil+ IFxwYXJccGFyIEFwcHJvcH ApWCBnvKdcesPrY7UqpgNv zC9wrIBgshMySD0pYE4cQ8 D0rXVdPDIdhhFyl6miVGwi dmUgYmVlbiByZXZpZXdlZC Omf9QvZSgjSEC7GNxsgoDa bmNsdWRpbmcgSCZFLCBTcG YmdPTmVBB3GNdcocUvcvRe CV2hbX7tpEucsP8vwJXkyA Y9albrJLTnHMMypAsqBDDf EJ7ggOoqkI7wVrNqAnOaZK maFA9rLQEvZ8gxrSUxEPTd IPAyS5rpSkPsxP7qyUivBW xjZjJcZnMyMFxwYXJccGFy XHBsYWluXGYxXGZzMjBcbG FuZzEwMzNcaGljaFxmMVxk IjKwRJDwZCckM3erJpJqB3 AuMIPkFtXnjZBuS5ekFSvk NWG5RAFyFU5omYIrEA64dB Tji7qsRYstkSfuzm2jQ63m pXBkNNucwJphPYQdj24zp1 QwMKJpkqUbel4tAADgmdG8 oU5fYHHqjQenLSYnqGDxDB Apq0WlOHldlJFnyyEqGQon KXEeUAJlwLNummW0xwFghp IwtyXkJJPkqMhzRMAhp9Aw WBMgROiyf3Njfu5woNQiYD IagaFIyUxouBTobI3oB8Fg NHRfXIDcpf6rAQBqfY0wQA hfi1LocswxDYGlMBExVMQv atIbdh9dWJJpoLUABA5STO enwFYqh5NbcvMlL5jWGKS4 NUQwNjYwMjgxKSBleGNlcH RdBWYwgb77CDPbaM9fiOvo AFYriJ6flC1xiKsklB0wPv GxGpBxWXlgFK0tYLNsL3cl sRQnVHMcQJTgH3izWxGwnF 9jaFxmMVxjZjJcZnMyMFxw YXJ9fQ== Embedded Images (test code = [id number]) [facility] [id number] 19:23:05* Test Item Value Reference Range Interpretation Comme nts Case Report (test code = [id number]) Surgical Pathology ?Case: [id number] ? Authorizing Provider: ?Dominic Keita MD ? [...] HPylori ? Final Diagnosis (test code = [id number]) q7kdyFFqNBBdj8rbBXUifP FuZzEwMzNcZnRuYmpcdWMx YKlqprPxBWkccMstPQE6JB TuJM4rrVadpNl9wOdhQEOo kdG3xEZlVOoek8bdPTS8o1 lhavfoDTHgCKndNz7gxGUp hIvzUrWaNMQtOVz4zI53DR IopX1bcSUjHGb4UKKmhHNp vjNuAiNxDGDudTAdxLY0FZ ZnYL6pekuzGUziNYloKNIm gpL5BQSnvCGzY5GnBFOdHP 9taoqfNJG2WHlgYVJkQWF9 NsZhCNTls6Yiubu9XbLdyS FyZFxwbGFpblxmczIwXHBh reMZPtCBYF2CWXGCWTHRA1 nBIVGZZG6HKFGGKscrbBXb WPVsILKsXEJATE2FCFPrV6 zZFdCmWO0HMJLtMTIudEOe MHSxfzMCHgIDCP4NVM3OPX wgQklPUFNZOlxwYXIgICAg SXVsKOvEX5BIIWTwVYMOV7 UJYKkPHRizZy6vDEKFYX2Y K3yCF2HQMMEIZF5ZQVkfQU HuWLNiGGXjGP1BOGplWFPQ UG9LYJRANNAIMLjZEINWJR DDWRjJJNHSM4SQVSkQSQQp kbviQOSaLr1wD5XJDSINAL wgQklPUFNZOlxwYXIgICAg AEFfAGQMN9OPCyEMBT4CO6 5TSBGPHXELRX6WMYFZHTdV OO0RVXCGNWJGJWDEI2SffG FyICAgICAgLSBOTyBFVklE TZ5SISDZSdQLXDrAVSCmZR lTRUFTRVxwYXIgICAgICAt RZ3XNWelSBQDDZ2WUPXVNm dBTklTTVMgSURFTlRJRklF NBCGEJVOTV9DHt8YGQIMAm xwYXJccGFyfXtccnRmMVxz r9ZyL9JaKgWgXKbhlhTzXC GqLzzmphugBOUlZOT3bpIz CPWvPVctTIJsJHqaUe9hbQ BdeKsmMxVkVAMtv9arjqSH TUdkUnXzS319CUUsHVvuo3 eik8EeSUYzsDXij7R8HHRC wezzlMm5x7ojUcEuClK8hX WsBArdC1goryHqwCRkR2Qb uSDyyHd2pDbtJ69lr3B8Nu asJ2dnSDHjNHXhI4ThWY8o NBLdLun5IXA4ZUV0TUKxTD UbP2BzUR4lTIDpzCZeNNx1 w0koiPiwVFVsXYF6p9nfKG zegrB8PB1qzd7qtNr4u5so czEgRGVmYXVsdCBQYXJhZ3 HdlAisJt7rbEe8tLekLjje XGT1Usw3RX5mqu54ave5aL brAOFodeimHgU3ACnlYJHr krmrVVc6MFxqMYWfwOC4OO MtqJTbN1MnPZQhQF5ombk0 KUT8FNofGFKzTfO3CPOocR SvUOAwdLuuGKrqz074IYO6 RyFyHK3fA6Rrf4H7tG5kzU UtWOPdvCCdKnYaYWIyrb6n jIJcMUjqe1VmSBD1dyW4xN LsvGMmFQPeBO05Fjvnd7Qu BjvsOFO0SHXnmdLld1Sxd8 naCwFeyrBuS7fbX7VmSOOx TZBoIAZwVcDmkbGbk1Jbo3 ItxCBisYg6t1kvUFLfCHHa mRjvz4udEPY8MVTsJ5A3gO Okf0grBVokDBLzgCY6ljM4 ICGkfSDuV6YydK9uMWDvMX 1aaqx0m3lsNSZ9OFohZOMj FtA2ygA1TJKgbXEfWTFlhU hfFQibe997PVA7KrMvAZPz s2KjQ8NsjIstH75hhWlqH0 4cZDTdwJkxhQ9bdTjgqN3r ZjBcZnMyNFxxbFxwbGFpbl xmMVxmczIwXGxhbmcxMDMz AUrqK5exFwAjOFFsnGpqWV pmb7WuGYWmFQSyOwghrnKp XHBhciBJIGhhdmUgcGVyc2 9uYWxseSByZXZpZXdlZCBh nIuaf2GxT8otTH4hW5SpzC EfboXfndWtSOscEQZhf8a1 gKRlzOwfy6LjyZIfLL10gn TrLAXcUHW5REUat5fmYB27 xykeFdNkoH69huBpmcThQC Mig4msO7mdlBBhy4Yys1Dn ykJjBInre2EaKM1zlNQuye brjMV7PPEhxUEzkxAetxF4 mGguZOWcjX7kzM2zcPnpuE 8dVqQfYqWoQQfqHJ9vKZJi Y7revUJoIUVtHUOdM0stAh SyqH0flRbzMrnbflI9LDIv cn19 Clinical Information (test code = [id number]) Shivani Schuler is a 47 year old female with IDA1. Gastric polyp x 6 r/o adenoma2.Duodenal Bx, r/o Celiac disease 3. Gastric Bx r/o HPylori Gross Description (test code = [id number]) j1nqzRHkGWXbdDHFOKJ7GK ClQG4slWqfbKb9qRneDQYu dfX3eBDcMGatw3zqZCN5b4 jkxfZCSqljUCDmLK3uJCht XIVbNQ3bTwWiEHFjGoCoLA BhcGVydzEyMjQwXHBhcGVy xDT5SSBhYG4lbfqaXSvmFG pfAYGrojX1AZIvqIPzQ2Rz IOSqWQ2ufwwoOPI8YBPHNm uwXd4pyAYycDvaItNcUuGb YXJzZXQwXGZuaWwgQXJpYW t1eK7DVbzlXCH5WQBQJkuv EspotEegj0YmgXNoIJIqBX xcaWQgNTEwMDAgXFxkYiBP QpWaFgV3Mqg2NTG7WrF0LE k5HXWLWJCnGhqrTBQ3RiR7 EQj4BATjVN8nIThnxSTsOC njBapnHBcdN851GCriQMVp Q3WvX7UaZGnkFaAuMTpwNJ WcMSYqTMuqLSFoS0NQIWVd CTS3KrOtCMUyZQw9HJvhD6 SUZEOoSKWgRuP0EEJrOzM6 OOt1AWQGHx1dWSmhVyLqOK x3BLJ3GCi0OiCtRMDiWdAd EOKwAPNiHWutqOBdKU1zyI mfDSQkFY5NVOSmKPnqIAGb MpReC7QCO8zWQU9pOYmrnZ JjaFxmczIyXHBhciANClxw XUUmTV3LKMEnGEkxXYc6kg LoXKJlCxXuVRWcP59dk6JI u6IgKM8ICAr3yuBeaaalvZ 4hKRJkkrYoQMzTmUEqhZ9w zfNWMGkqQPXcD1DmqfCrZB vcNWJviq4rzTuoEYmwGoGe bGVkIHdpdGggdGhlIHBhdG wypjJvZ7Y6ddUfRQ7nFVPF ADTfcR0mNVFgDHQeq9KanJ FnhShuJ9BjlJCsVzRwq9j7 dZT8LYDhklEuKAPluTBzAM Hyxm6iNBijVfYeZ9F2VZCn PBRos17kaWY4jcVyBaCreL u6yGFtOSM7JQ2pvSyjexNr n7i3nN1qAIOru1I4DDPmd0 G1GTVkvbNebSPhyQMsFNEb QO3znoEqJE62QEGmXLngEE lrSHP8SEC7XJYdnXXpj0xs xshdKi3cLPwkGE9xZLudRZ 99HCBzKCbfYCCgG5IaB8Q2 SUqyZKGxBRNuoMBeiH8ybx OassCxjBu8NCHpXZJ1tZKu wQqrYLUxDmjvfLZ9RYGwHk AfgoIry4NzdXp5cTVfAVcw ROUvzM7qpN5cSURhRCXyuo PQDxxfZODjXPkwv9MaVCnz cGljWHNhMzAgDQpcZXBpY0 1yy5MAq4Mqb3wwrIjzh0Lw xEXhRR8ysOHzII0Kt9uwJS FclVYxDXK4ZVgcu8ipMIio GHD5FLHqSzJnIENrUG1GEg PrUHvpXHc5CZynWXb1SYj9 ZF5VXxBzCCMgXwg2DfV3Cx TsRVh9ONbiKO4KLJK4SOCo MXFqPIgnUKR5VQTwKLc8FV IgXFxzcyAzIFxcZmwgXFxu Q25roSZbIKubKbKlQBislS rjXINjJYK1EK7PYPFuHbZx E7FCB4dPFW4dStsveqViAM QusjNKTvnmXWEtIE5DBIVi VPjjQNe4vrPjBVYbGuYvNS ChE11na7EPu7XyMF8KSFv0 cvSdjelzxQ7rFTCfnaQdg1 IzMFxlcGljWHNiMzAgDQpT qMUpgH0iynFRAEjzCMSoX9 GbqpDpFJllNEGigy8zkOkw IGxhYmVsbGVkIHdpdGggdG fnLPCojWuldaSyA7B7msYv QF1ePTXYGAHdoC8lQSNkWQ ZwUYFxTYTvxB1nJKJ5t4Fx bdHjTBDRMXInkPrvEL84uE BjZWxpYWMgZGlzZWFzZSBh rsQgxlYtg89pvaKgq3HtSP 2aeCgpFGpOQAlyTfCoOQ5a RNZfgeGmz6MlOV9xDWZbrR LqWWSztmsuyGVyXVu4cOWg OEAvPfOzeEbqy6UcLBTjCR omKF20zxMwZO9tZInjUN8i IQlzVO1mPAEyRIScHVGiJm KniGGrHeWfbOCpDwUsH20h WuUVwZXoo7PuM5omHE8waM SpJrbibQJbCFBudMpcu5Fz dJKeWWGae6WmaHEfHEovFF 4yYVE3Di8awPXwDMNwhwY3 u4WmXMqzKDUcQhybIDVyQT ubw7MgMYObtLJKs7AcHG8K XHBhciANClxzYTMwXGVwaW UFh0YpMWTHWogooGobZcGx pKOaEjT9EEQfzXIrTZE5MC 4riQclRYGbUNd0MMpeLQPn T0HdV8WaCKzzYsBcUDndUX BuDJKkQWasZVRdE9CTNNTp IPE3XqDpUKEjASb0OOueB3 TQZDXrAXJjAyF7KRI0GhD8 RJs6OLLSLe0qKEwaVlXdKW TqQnE8ZOb5AwWoJVBeGsPv ZZCnOXMqVQtyqMSyTA6gkH bgIDJdLFMoODZ7COSswIZG o4GwJGXsJAvwLxPzYRBCDJ BCVR8ELcEVUDMuNgMqyBRp EN1WWPYzxbBsMOnfoYikyE 3vrBKoB7ycZmHjZktgmXkw TmVzdERvYzEgDQpcbHRycG FyXGxpbjBccmluMFxzYjMw MSYdpQYZt5RxQLNZYuUsBC NpbWVuIEMgaXMgcmVjZWl2 PLHtrV0dTn6jkNTmxU4xrJ KaJUfoZEVjq3g5vDK0xXKe tFV0xMWwmWuhWfPmOC8jmE KtRCEMZX47zFJcfjGcKIRo nI6aIYUfBZFvVPN0mtdhOZ QBZPQ6yPHoq5I5LXnlEJY8 gW7vwEoeBmQoS7O6BLKgPL Mef62ieCA5kbFyWuHdWDWh rm2btW2gMNfinhMkmXjvpe Xxu9S3RDQbf1C5YREizeZt zHPgoBDsNRQwInK2MUPhEd H1AYIkZSSmyFKfWGHpTB5j VGhlIHNwZWNpbWVuIGlzIG NigTVhgiYgHJHtip37B3bm ETTtzF0hb4yvIuAsTOFjQF YbqMMnxBH8CMSujZ9ckN14 ffBncsTMRD7dyQHqJZ8BBK NiMFxlcGljWHNiMCANClxw XIBfKPclr8BfGCcpfSawNZ GtAyFbDEiMfPsiCHYEF1hm qLCaODjsPQLXOQtFV8NSDJ 4HEXJqrGRJOUT9AK8vMOwn OJPhQ0CiA3PjihC8f2owyT zow0DisPGlPQ4scTLaHU9C XHBhcmQgDQp9 Disclaimer (test code = [id number]) y7fcnKUtRGHrl0aiRGSglF FuZzEwMzNcZnRuYmpcdWMx MDofhtAuLRfrs8FkT3TzEi AwMFxhbnNpXGRlZmxhbmcx TSEjVNH1szGyNGPyUFemVC ViRYxuNp2bdLDyiMkjRkRu PMTwc7qxntGYVCppIfGpZ0 53XKXpIIxio3cbg8WoEUJm yJNto3Y5FZMEoemghEs7kX huC29ut6E0MfmqO6kvGKDg VQQlE6DbYY6oXPGgJwg3MR P1WQC6NJHmCNLlX1YvKW8v YZRfsANqEHy5n7kotPbhLU QvFCH2z6nnCRhbbeMlPE6r gm2exQu2b2ektbCrRIIpRV MikDAAVEHtH5WxuLhkCi4b dPe6zXnjBevtQBR2Oxk5HU 4zzs75lwg2oSoiYSKyfljy UiT6SMboOOQxdhbuXKu9HI dxBNXgsKY5CZCvtFHqE7Ss YCEsOB6lobu4JMR9IZteGC LmAbA2TASkrZXcIQNycLbg JDngt572IWZ6TvDyJV0aD9 Nya8K3gE5efXCnJJVnmGSb IvKeXCMrwg9bwPZxPXwbq2 FyDYS4voU6qYTttLInNOFy CJ94Guhtu7MlEcjjr8OlH5 0qzEX0BZpzc2lgGF6fBmM3 fzEjTXjej5chwE3pEiI8ZF uvPM0oOR9dTHYrsC2qepsc XHBnYnJkcmhlYWRccGdicm CzNx8wqMfzKAY1RCpaK5yn qP1uJyE4RGzvY3uepZ1pMG t5MBjfvCZ4VYMyfP4lNB8n hdytm2gcOAysDWctVZLdeb S0dsE0YFDfgMQnZ8XsrF6p YHOhKR2adptwf0ybNOZ2VD fvGOYjJDC6AcLbIVVrr8Gl xwt8TgXre9WciOIwBPdiS9 7dk122GDAnlqHeL7omlQVm qzoznKOmfxzfFGeqokM6YS AnafLgk1LjJPJeUOM7FGmo QVvxqWQmRYExzAwkh2nfL6 RscGFyXHBsYWluXGYxXGZz MjBcbGFuZzEwMzNcaGljaF syQAxmIhXzOSIsCZqfS7fk RdRjI6UmGCWrMlRyhIKtF8 ggVGhpcyByZXBvcnQgbWF5 JQncG8o5JTLbqtWvwMh5ln SrTnYeSXNqNDS0ZOglfRVh SCWhc0LoogkxjHKgBz4yxR TyNETrkR9vCQVhQHYjKNhs RR1fcDg9ACRNaOCwuCVtKq EJGOJzHS96ywWvUBCZywqd v5L3UClxNMYdj7ZduVVgQ9 seh8BvXVWjy04yWO2ia4F1 m0fbFDH6UL3wq4OjOXKdhX AlrCBzTMKon4Dewnuhn6Hn GEYbcjEzm3ElYIYvowDecQ CfTWEnhwOjfm3frxWjSOTn PYEwG5QddtnugOvjqhOsBR Lylz3cfsMvSPU3KQKFJBGk NBQqk0XltG3ziLYUTVK7mJ Lhxi2puwEUvSUrMBPbmn76 KSZlJA2lA3tcBARdRFWlqi GqnOBvj6GvJPManTL7gPEe ZC8TFvLMs49pGQYoDZDWwc ExGNKcrBcapFJ9yiS3tF1s IChGREEpLlx+IFRoZSBGRE AsVM4ntxSzy6IdgnMgyIra XYAbeQVii6PmzIRia5YzhM kxt7IbpUUqgTFfXW3oKVUk clxwYXIgVVRNQiBMYWJvcm B0h7FtJLKwZQUeZGW8rDpj lxr9ECWzpE8sKBSiQ9rzgn pgBWvaIYUbx1UffW0wlTWP hYLsa0YfbNNeaBCYxLGqUJ 5misPpVJnCTMnVDAM3apQr PRYvv3JmIAmkL3djV47diT hshFs7aME9XKD5wM4nJjf+ IFxwYXJccGFyIEFwcHJvcH FkAETmiSqlyfAfA6BzqrTp mZ5baWOqfeIbHY8kPG3zC4 I9zBBdHVOnvwZdr6kzIJtw dmUgYmVlbiByZXZpZXdlZC Ojt8TdFFygVZN4KEqjngDx bmNsdWRpbmcgSCZFLCBTcG ZtuMFnZOC7QTlhetAkvfLl MZ1lmK3ywMylxJ8zvQPkeO C4qzqeWRVsTUAdxAyrKRYl ED6wzCnxsV9wVoDaDfYuBV tfUH2wTBUuC5vkzTFgSSRn UNSlI9nwApBfsK1ufEyiSL xjZjJcZnMyMFxwYXJccGFy XHBsYWluXGYxXGZzMjBcbG FuZzEwMzNcaGljaFxmMVxk BuXtBGZlGGotZ9afDbPlK0 OdNGKxHaRvtRKnX2msLUmu UYK7USOuDJ7xeZAsVM27yK Fyw5qnNQetvLtzri1xU22n iYShJZdpiExdANRiv02jy0 AtYXDnduFsxy6vECKvksN2 fM6nKCPwfWsdFNSllZFoQZ Kbs1YwBOrwcRAbsfGuLPqe POUsZCRwkIBaboG6mpXxjc ZlhcVsORUjcAljLFGwl5Ct XNZnYEkaz2Hgun0srMZyJZ RmubKIyTuloEJztN9rG0Fj KDIsACRtbt7fUCQnvX7qVD sdi2FrpyxzVJLtKEHsMGJg ibGcsi0eOIUppUCKOY2FIR rrzWPjg8IafiEcE5qNAFE4 NUQwNjYwMjgxKSBleGNlcH GpJTSzgh16WZXmwC6hgRbo LUJuuP3exS6kxAehmP4yBy SaGwNoEYmfPB3mASTnF6wh fZEtTRKnNRAvO2dwFvCflH 9jaFxmMVxjZjJcZnMyMFxw YXJ9fQ== Embedded Images (test code = [id number]) [facility] [id number] 19:23:05* Test Item Value Reference Range Interpretation Comme nts Case Report (test code = [id number]) Surgical Pathology ?Case: [id number] ? Authorizing Provider: ?Dominic Keita MD ? [...] HPylori ? Final Diagnosis (test code = [id number]) p9oqsIHkTFXiw9mkRMFjlC FuZzEwMzNcZnRuYmpcdWMx QNmyynLzCWsyuPggYSW4RA CfPA7keThbsHm1cJufNZFh zyT9gRLtMKkmn3ufZHK8v3 yfxlrrLRBpYArdLn1fdNPt vSswEkFeSERsUTc1nH12UB JrbN5jsCGpSGm8EMAixXTk iwRsBbEpRKHuaSJgyAR1KC KbBQ8oagrbTSdwJNlvZFFj qbF7HSQjkRYeH5WvUEIeVP 2yszqcCUI6KLhiEVYbKJV0 RcKeETPwh6Gdlil4OkVedD FyZFxwbGFpblxmczIwXHBh tjMDCmWMCO6JBUEFUOIHK2 cWFSBZKD1UHXIAFdgwwHDi WJZoRWHgZYHQFI8HWZLkB4 uUKsBdAF3QTTIuNGXzdXFw VNUjkaFDAbPCTL6KUA2AVF wgQklPUFNZOlxwYXIgICAg CLElKEuLZ7BOLXXwRTEMA9 IKDKaUVWhqSs8vHXDBZK4G R3pYP3XPISAZRL2HUXvlYT LgGNGzGWKtRD2EJJbdMGYN GL8YHEZODCYDGIiCKQQJNE WCBJlLHDAZM0VDFCaBGYOq dznqVUVnQd0aB6XOFTTKAE wgQklPUFNZOlxwYXIgICAg CJWkQBUGE0HEUmWSUH9DV2 1QSMGVSGHAXS5PVIJDVYaX WX5GSXPKBLMCVUTDQ6HqkW FyICAgICAgLSBOTyBFVklE BJ0OXPRHTqDHDFhYYNLfDN lTRUFTRVxwYXIgICAgICAt RO2ROFinUECAMG5SKNZJRz dBTklTTVMgSURFTlRJRklF NFUJKZOOIR0QEq5WVFXPHg xwYXJccGFyfXtccnRmMVxz m9WfT8ObLoSyJYszxoZcHR QuZmbeofauADTaHZK0yhKl XPFkBIeeHHTpLYmgQe3uwO AbvNgfCiLiGRHwj9qlfsXJ JMedIsGtV519YHEhGFyzg2 oat9GyOVBszJLgh5V8GKQF lwynlFr1j2foQnLeHqN6eH VlTYauA0wgwxEkqPGsL8To nFCwuVn9rUccK11yd6I4Pa xcF5heRCEeSRRkC2PfUP0i OMSgLok0BSE8BWL5BAWtTC WhP7ZrSC8iTBEeoMNwZQw4 q2obbHfeMMSqAOR6a6emNF qzyzV1CH7zig4cjLg3m7rw czEgRGVmYXVsdCBQYXJhZ3 DbnOgbAl3bqXm7wNsnNypc SHM4Vfm4YR4bpb40pbs0wX asPZPrffxnOpC3OGsiNPTd hiodCKl3GMxgZSSnkUE6QN JuvAPjE9QoICByEB7mldp9 KXB7TNrzXJAyZkB5DEZqfZ IkBQPvuCwrJIxyp101UTP6 BxIcKY8hX7Kqj0M2yO8axG EeMIBorUHaUkHqHTOwgh8t fRBfCEpyx4DyZEY1fbH6lM LmaFYoIPRiKO08Nsihd3Nh BmcyHUJ0SQZeffHws6Cex6 qeNaNaovGkV6flE1UjCTRg HPQlEVLwFwGofuQyz5Wax2 JcfZRgiWm4w4ieHXCdCCMc dDajc5pgAVI3CUKoR1F1yO Rfe4khLPsmFLEetNM4qsX6 ODKjuGSmK1LacF1wMNFfTW 0cksi7x9ohQVO8MCmdEYAd YaS4iqH1XKGduGAuIJWvjQ kuYAlcr090CIS7TyRgOFPm k2JjQ7NmvHcfV16mqOwkP2 7cZCUoyIxirL3tmKwjzH5y ZjBcZnMyNFxxbFxwbGFpbl xmMVxmczIwXGxhbmcxMDMz ZBnsK3xsThSzWRRgyYgnZX kwr4JaJVYvWJVpPdyrswIn XHBhciBJIGhhdmUgcGVyc2 9uYWxseSByZXZpZXdlZCBh vHmrc2NnN6znOJ2fD6TmyC KnlgMerwEqYPqwTJGlt1t2 xVBevWpla8NvbBSlDR79bn FvGUGcLLE1KOPuz4myBR85 becxGfHgdW60ggZzanPcAA Hee5wvK6yhgDIqo4Ykb9Ar xgEmOZbhq0XoBI2rcLKhqk evoGS9LWOhaJPpclSkkiR5 fJjtAEXroI7xlF6ykZlmxD 5sLsBgMfViFWmwJS2gCLSc Z3bygDClPSFoTELjY4dvDd JsvV8zlHxdDnnppoO9OXBs cn19 Clinical Information (test code = [id number]) Shivani E Schuler is a 47 year old female with IDA1. Gastric polyp x 6 r/o adenoma2.Duodenal Bx, r/o Celiac disease 3. Gastric Bx r/o HPylori Gross Description (test code = [id number]) s1ydkUQoIVHhjDJXVJX9TH ShFD3shUzarTw0yAhvULFt avU2jJDuQRhva7bgNDQ3u3 jeorXEHcitIIDrRL6iBJqn ANExMX9vCgDrRLVoOfOlLZ BhcGVydzEyMjQwXHBhcGVy hPO5PMThUV0imiueRAhfKH ybQNTqrvO7WMJfdRLiS5Qa EGIzON0bhlmhIZX3HTNXCf teCj8glLEhgRguFhClSuTc YXJzZXQwXGZuaWwgQXJpYW a9sJ7UFbchZNG7BSWZDiik CigswKcvl0MvjHKwXKJbPK xcaWQgNTEwMDAgXFxkYiBP SiPeAoK8Ngh9TPT3RlE1ZB t1JCLWRGKmJohgYWV4AxA1 KSh8DDHpLB7sLUsdcCXoHT ewLlysMZbeC814IKbsJXXh C9LaH9RaSKhaEbUqWEdwBX PyCEYqDBhbZKVuH1JLVDAk CZD1GxPfXODzIKb5TSkwI5 JTXMBkRQElXcR9XNQjBdH4 KHf5TSRXEp3rUSedZvYiVE x3OIY7BCz7VyGmACYuIwLp ZGBnVRCgLRqrkEXfHX3osM hfMKQkIK1AJEMeAEqoQVWo DnPaY1JKS4pUAV9qUFbydG JjaFxmczIyXHBhciANClxw IQYwEX9WNHHpDHzrYSf0gr MmIVBiViViVLWsA30so7QG i0SaGE8WYFl0mdAoaqjfkG 5oOGOsheYeMOiVkRMyrC7q hnPZMXcrLRBdI6HknsXtEB omWEVvbo6acPfoFFhvUtRx bGVkIHdpdGggdGhlIHBhdG txkyYvK1A5lcXsVG0jVUUU VKAsrY1eIDUrYLNlt8PaxT OgrOrcX6EtqWXrSyJjy2o8 fZP8JREkrpGkJDUuwVFiVW Teoc5xMWlhPrAeF5R8NWWo KZAaz54fmDJ7zyLkAoZsqV v9mORoKSV5IX6idZuegnLa c2q7aI8iEULrg6W3HKHwj8 X4WJAouaQjtLFeaBThQZVo LD2qkaEkIV64AVLdDHhkOF djBIK3ACI2XEGwfCNgl1bo lxydSi9jGJdcLH9wDQrxYS 06IPPoPQliQKBwS3KyZ2I7 UBryBUAvVRKcpFQguO1xna JtyvHgnHr9AMSrVTY0nOZr oJbzDYXiAgsvgLE8VQYgXl EkybNbe2FvvEs9oQEpXHxo ZUXzpB4pbQ1sUOWeFRCrth PUCybyYMMbGLhfc8BlUWhd cGljWHNhMzAgDQpcZXBpY0 9fm1KHu6Naa8jvbVzrr7Nb fVUkKU6rhOIfQK1Zn3uxHM PqqJFvKYH4XBmzw5mdYPxm TLD9AHOsTpFbHXRjXJ1YBf HiQWaeABn2SYdeNNu4VMs1 MC2ZZpKkAMNlTuv3HwE0Mr XrUWu7UBrfQK3WJCS5OLZj XYWsYNxmVZJ4HHErTGl6EI IgXFxzcyAzIFxcZmwgXFxu O36fwFInTTucWqGoGQdjgV wdEZWsDCP8OQ6AMFKtTwTv U2GOV6iXBK5dPruhqdGjMP WarxLJAjkjTENyFR8ZFTIt WYkaGMp9axIfBFZwNzNmER MtC47vh8EZe5OdRR9ZWEr9 uiBrwsbplP2eZHHsxuSxu3 IzMFxlcGljWHNiMzAgDQpT xGXhjW5dubOMPOkmCUHqZ7 KtvuGyPDrhYASosd9suDyk IGxhYmVsbGVkIHdpdGggdG nkHVQguPsjsfYnH9N7aiOx LZ3fBVUENDSafG8zUSXnUS VrOXMvSOCzbT5lMMS8s7Hk ciFrRXEKYUZlaNkfMW73nJ BjZWxpYWMgZGlzZWFzZSBh zmHtbxRat67hcsWsw4AdCJ 2qcNkrCWwKEPxxTpEqFI6t MWGvccAwc3FyXC3iNNDydA ChCPVjlblypYDuQYm1rWHr EDEzYiTilRtan4LqOKNeNS ncGZ60pbVuEY1kORsnVP8d XMncQG7hBFHwWDZvRORnFx LntRBhNrVarUKdIyHsK67b EnRUeQDdl9ViO3xeLQ9fhZ HmJfqfaKLpIHYpzTzpk0Su wPCyPSMvo9TyoXJqMTgdYW 0aNDO0Sj5ezKQzPGJsxkG4 i9KlDRayLATlMbntWENjRU iqq3CtTXJisKQJe5BkUV1F XHBhciANClxzYTMwXGVwaW QYe1EeYGAFLrcsgArlHuNk aFGjBuN7SPTkjSUjMUF9VY 8miGakUEXyEBw4INetPIFk A9LqY4ZjKGwyXwBrPXenFS JvPMNgJXdtVTNoP2OFQBZu GQR8BoDxRRIlWSk6ATwzK1 RTZVEgBDXqVkZ0SKD3QbU0 NZm4HNRUBq2xMWseFtPxWU GkWdJ4BXb4XhJoMKJbUkNu DROeBFJvCAxurTVjJL5ryS amFRMoWREoECC4DKCxfZIJ w8ZeBHLrBJdaJgVkGYDBYA PYKE8ZDkVCOWClLvEvpOUu QM6XFCNereEcNDctdVldqY 7hsJSgN5bdYsFfUxtusFzz TmVzdERvYzEgDQpcbHRycG FyXGxpbjBccmluMFxzYjMw TTZnhVITw1VdOOIAKrAeZJ NpbWVuIEMgaXMgcmVjZWl2 RNYywS7bTl1gzXEmeY2nqU RkEWmbQYAuy1v5hEB8aVLj pXL4cVGffHatWwEhJF2jgN UxSYSJEF18nNFhgwCmRWQq cK9mQATsQYGnVYA3aagwSV MZMQZ5zQInh1S7GYpnBTI7 zI1buFyaIeKpB9J7IAWnKH Bys58gnHH5nvAnIjKzCEOz iq5zwG7nNSpdbxJnkVzamf Szt9U9CFHgc8F7ERWownFx iFSinHJiBEHuLmJ3AVPnFm T8KAWlJWYhhZHjKWCsRZ3w VGhlIHNwZWNpbWVuIGlzIG QdmZEdfaZyZFApal44G4yh GZNmxT9pp3stJaHlDOEdOI WzmEZckBP3NZDhaR8pzL94 rkJknvHAMW5uhQXwUK9ZOD NiMFxlcGljWHNiMCANClxw JEOqLCssu3NiYKzwmYwbOR ShKiTcBQnAkMnuDSBSZ6rn nOBwFBpxEYYRALfTB8FLBN 6QIDKcyBCRCNE6JT5yZUio NQClB7CoQ7XpacS2r2xanA ycc0KozMZsCC1iqHCmYS9Q XHBhcmQgDQp9 Disclaimer (test code = [id number]) k9djaTVaDLEvi1yyMYByqT FuZzEwMzNcZnRuYmpcdWMx RGgiuiEgSAsrn8QsP6ZkJv AwMFxhbnNpXGRlZmxhbmcx OTDsIPH3atZmKAMrNTelMW OfLHbhQk0hoJGtuEtxMmBa HCGvz7iihdLWFZxrCgOxL6 54EVJkABtvs5yrh5LcZENs pQKxt0W9OIQUeidipNu1eE nrN87ri8M6FflsE6adAOSz CKFuA3GwXH3pSHCyFyn7UG R5KRP9BBDeRGGuV4QzMB2o IUFnbEIqYQf0c9iuvVprTG PhMPR7s9eeZEdlwxWrKV2d hf0heTh1o1ylscKvAJJmWZ SbiNKUSASgM2ClvOctAx2d dGc2oBkbTobeJDA5Fki2BC 2wok21rli3rVouFFYkzxxq DsN4ERqiBOHzgxztTIk8EQ qsRSTjyJX1JLKopUMwU8Lu QALmPC7zoyw8VAK9OBtqJU NgMyD3KLHupZZfRLJnfGjk UBzmk566GHH9NtPdND5mE5 Gsy6C2eA8llCLzSQLwzCOs YrPnEWLdje7qwUQzQZgtf5 NmYFF0xkM0oHIqkPQoUVVm ZU28Bndrq1ClTwclo9RbO2 7ibJT6MTkec4sdDT7hTqH1 upIbSHwmp0qlyI3kBjX1OG upTD6kFL3rKANqgX2hnjuu XHBnYnJkcmhlYWRccGdicm IxDw3mdAaxCYG9ZNqrO4po zQ6lBhG4XYahP7fohB7nDY t4TSkzdFR5VGOkyJ4iYM6l mpngy6tkFWarFTmqMAEtfm J3mjI7YTOdfSEnU5EdsI7p QZGsOC4coubqq4wiSWZ3LS xyYIElMXM1BkVhJRGox5Ur irm3AhMyv7DhrIGiVQxiZ4 3zh133IQVcymExH1cdmISh tqiogXPaconiUNbwttD1XU LgsaFkt7NxRSKsXKF6RMmf TPyuaCAhXMNfgFxoe7yqY7 RscGFyXHBsYWluXGYxXGZz MjBcbGFuZzEwMzNcaGljaF xfSPjeOwBpNKHiSLteH9wb UlIcB0KhJJGnTaAcwJTzX6 ggVGhpcyByZXBvcnQgbWF5 WUhqM5k2XWThjvZrcWa7vo CyDzTnMAZfIED3ZVwibPXc VWMsp9GquasgkMRhJq3psG CtLYPacZ7vZKSyDXTxLZtb ZL6viAx9IOFBlXZwpEKyGu AQABQkBM55pyQoYRMCopnc y2W0CZmeJPVja0QogRKkM5 crl3MmPVXws15jKH6ez3T9 u7xgVYV9GB1ys6BlNZJgfN LcjGLkPLKuu2Nnsguxr5Bo RVOghqXyr6SaCCProuQwmT TtBHLqihNorx4fuwHjDJNd YYRzA7SzaevvdTsltvMlDY Xpga1zmoAuMIL3DMSASIEr ZMYzh7BtzL5wxPQSFTW0aG Qijp4eifLDjZWtHVWfjz86 QJIeWI1jK0qiQFOzWUWuxh KslLZzr6GnQBCkrFP1wQAs JI6UGuODj32fUMLeNYXZdq PpMCKhkGiajWX2agP2hV3f IChGREEpLlx+IFRoZSBGRE OtMB3rchHzh0ApqvLumWtj KFLedDYme4QneZXcs4IeqV glh5BxnRVtjAIwSO6gYUYt clxwYXIgVVRNQiBMYWJvcm E8u5LzQSShRAQxZOD6nNtg zms5ASFnvQ2kTROrB6lrui leVFjlYFBhh1VqpI6ufSCZ aQVpx2BgpYQlnCPGgOPrZU 1swdVqNLkIEJhFTUF5dbGb GUHod4WqCRbpY1ivI59wkK ksyIp1yJA3JKG6xG0wNhs+ IFxwYXJccGFyIEFwcHJvcH GhVAOdqNxvoxFnS9IlhbIv wS4rwWUjgeAfKY3pHJ6iW8 J8gQTuSNOrpvDri8frJIkz dmUgYmVlbiByZXZpZXdlZC Dfp8GtSUjvHHD1YVyatnBi bmNsdWRpbmcgSCZFLCBTcG RykSIvXRB0NQhiqhBnypWn TB6iyQ5opEpnvI9rfZEgwZ N5gkmvLPTlFYLztHtuLOOe FN7khDcasS6gSxGcRbBlCH rnRJ9dOKTeW1yuhQNwJZHe GUQmG6ztVkPezS2paYgzNX xjZjJcZnMyMFxwYXJccGFy XHBsYWluXGYxXGZzMjBcbG FuZzEwMzNcaGljaFxmMVxk IcHhKLBhJViyY0hkAaYvG4 QuRKLtSuDqtEFrD7tyKSyl PSB2KAAuLX9hpFZgNZ05qO Mwf7btFYvtoVukmt6yV86s xMEbBBoudUenQXFzp04hv0 EaWRHpnrStyz9dJNXneaX4 lO9bXLQziMhlISRqrKOuGG Nru7WiFLuqtKBizcYrKAkf YVKtATUudHEcbqQ5skFdse RxgmFlKGRdlVorCVUpa3Wm SEJjUIgzo2Iyhg5ksANhAU YqgzPDgPemiXPcpN0vD0Yb BAAaWOLnvr8cONRvvN5tHP yet2GptouiIXNrTEMwCMJw nlHwqf0wAUVysZLFIB5ICD xegKMlg7KpoiCnL2bPIXO9 NUQwNjYwMjgxKSBleGNlcH XxXABhxf80OCLkeT1bxUyg MGCvhG3ocU4bcPlcmX1lLo ZsXuIzXZdsUD6lMEFuW6er zFSnCZDjNDMoL4acGgGcaC 9jaFxmMVxjZjJcZnMyMFxw YXJ9fQ== Embedded Images (test code = [id number]) [facility] [id number] 19:23:05* Test Item Value Reference Range Interpretation Comme nts Case Report (test code = [id number]) Surgical Pathology ?Case: [id number] ? Authorizing Provider: ?Dominic Keita MD ? [...] HPylori ? Final Diagnosis (test code = [id number]) o2odyLSuHYRbn3npVAOtxP FuZzEwMzNcZnRuYmpcdWMx YRhewjFwTScvsWebNLO6WK MiON8eaMqqkUm9tOugRQPs nzJ7oLKkRKyis1qeDBQ8t2 vbcsreXFUuNDipGl2ffQUx fXrfJfFkWCEqXUs9yY48WI WepS1olIHuGFx3YELnzXJj twKdLhPeVFEfuOEwvGB1MO InHN4lqmtvCIglPXgcAYIs tjZ8SBRiePNdR6OgZWKwPV 4auaklZPG1FKllKNGoQLV8 VdHkVWEse5Wmiqk5CpHefY FyZFxwbGFpblxmczIwXHBh wzSLBmHPZH6PKIFMNSHTL8 jQACKWPA8IISMMUpsqiOZg HFXsVGGbGDVXYE8XXAYhQ5 pWFkBoRI5FUJNxKXRwjKRo ORVunzAVTvIRLW8AOQ8UYF wgQklPUFNZOlxwYXIgICAg AUGcGDeVX0GGBNQoVYPQD8 YUAFwJTPkdTf5yQNFXBS5I T7uGW0MKUFNNLI9LNCkyER ErWDBpNJEbFL2EDWmcDMNF GY5GYSRCFMSVACkRMOJDNQ RXCXxSMEWDM7XQTWkQZXXl ndhgZTZtOu4gH7WKGKINUG wgQklPUFNZOlxwYXIgICAg DZLoKFVZK8ZCWlGIGD9BH6 1OPSEMWVPIRH5MQCZHAHxZ NU0VXUDXOGOVUEWWW9BimK FyICAgICAgLSBOTyBFVklE UJ9JJBGWVwKXLIaMZMMvFE lTRUFTRVxwYXIgICAgICAt JJ8GQQsuNUABAT1CYBHBPe dBTklTTVMgSURFTlRJRklF DMEGRZXMHP1UTa3WBZHKSb xwYXJccGFyfXtccnRmMVxz k9LaR5MnKcKrWBwxlgLmDB YzMnpqeyzcIVOxMEX7luRz IKMfEMqlIDJcFPyxWh5knF CquGlcPxHgETHru6vdmdCI TQuyMrQlR236YWZtMShmv7 lrx4BzKPChsHZvy0C6CFNR bpkjuOh5g8klFtLnRsK3jD FnDIdsH7ojpfEkiCYgL8Ab pCYfvWq5eMxsN92ai0L0Be ukV8laBQZeITTtE3QiII1c EIWmUor4FWF8ELP3ZCCyOA BvL8XiMA1jHCYhmSDlTQz9 b3cynLaeUFVcDCW3s9dtDJ ccgfC5SJ4luw9yaJe0y4fv czEgRGVmYXVsdCBQYXJhZ3 KzvXnkSa3xeTp2hPrmCwfg SNW1Gna2RK3bif09nxt3rW ggFIVxsjfeHvX0REwsCSQc szqzSXn7WJkwYQVvqTH2ZV JdxPMwZ5KxHOWbDZ3ndhr9 TUE7KCduLNFmTlX2RVPipK TnTXJvlHqwKNpkj107HMN3 XpSyNO2hN9Ggd6B7vC0inW SwGYXjlPUbAqFxXMClok2o aQTvJKgwv0KgPHF1ecT9kC YzsUReJZZpVG67Hnhva0Jd YwjqKSA1MBErogDhb2Uaf3 qpVzOhotVaV6ljG4QfJMFq TPFiJOVhXiGjbkQgm1Xoy3 DyvXBobJm9x3mjVARjEJYa qXjhi6jaDXY3LGXhE1Z5oD Fxb4wlTNupSYDwwYM6ggF9 BYQakTQuL9PylF7dAVHmBD 8nvxr5g4gaING4EOlvGXHo PiO2ckP0SRKuvIRaFNGahW maKPsjd543DSY9KmReIGHk k5TzQ6CwrMnwR33ldFxqT9 7kANSceStkmE4ewZrwkB0t ZjBcZnMyNFxxbFxwbGFpbl xmMVxmczIwXGxhbmcxMDMz IFhnX3wcLzGsCWRwfKnzSD ywn8HcSOHnFOYzEmrgwfBb XHBhciBJIGhhdmUgcGVyc2 9uYWxseSByZXZpZXdlZCBh hSsoo7KjL4baED9gQ9AygC HtnnTcyhYzPOcbULHhp2n3 aQJgvBqqp6OytDKhFC19vn VpVFViVYO2REQwz2ukQP72 sjrsErJugQ29bbZwkzNuOZ Wyc2unU3nuoXSkh3Jme1Xs wnWePDfpi7YgLJ7voSAcqr xzsBG0NXCiqTEakxGaiaQ6 eZpjWQDrgO0fhB9orFyydM 1iXhTlSpWbJMwoEW8tNLDo A3hnjMVfRVVnEYAxY4kpNm NobF9emFpqCtlacrR4OZVf cn19 Clinical Information (test code = [id number]) Shivani Schuler is a 47 year old female with IDA1. Gastric polyp x 6 r/o adenoma2.Duodenal Bx, r/o Celiac disease 3. Gastric Bx r/o HPylori Gross Description (test code = [id number]) x2vllCLrDEEkrMNUPPF9DZ RfRM4glSruzLh5gHwoJEDs ikO4kNQfUVcwp9eiVIP4q3 nrhnWYLiecULZfHN2cTUec UGIgVF8hWwYrQKEvEwEaRQ BhcGVydzEyMjQwXHBhcGVy dJR1RCCqMD1qshgrAEfkBW leUYBpptL9ZVLcvHReC3Gt ISIuTS2ebogeSEB0EQAXKd cyCi3njWGfkZhgHdRaOvKj YXJzZXQwXGZuaWwgQXJpYW b2qV6NBthvUFK6CUAZDhgv DptotHska5KgmMMrSTHeRP xcaWQgNTEwMDAgXFxkYiBP IyKuStC1Ukg0RAY5StC1GF b0IUISJOOcThrkHXL3OqL4 YYd4WQLrKI1sDKzpqNKbPI bnCqueJTnkT598XTosFKNt L3ZkS3TcKFlfYxMmYGsdLC BcWUIaWMunJDLzC6SARJOt ZGS0TdSvZFJeDId8RShyM3 QFPJRcOSAwBrM1IGLwOuW9 ZVf0DKZAEz6sYVvjTyFlYR a9HMK1NTg9VaUeAVHmIwGd KWZuDCVcPZiujWVmUB2ziQ yhPROyTT9YAQAeKUozEEFz BhCqQ6NRS5jTFS1gXFifxQ JjaFxmczIyXHBhciANClxw QRBhPU1NQGMvDZjfJCq5wk EdAITnZwQzYZWtH85qm1ME h8XoFT3ZODt5llIhwuqmiN 7kBORziiMzCMuXiIQevZ8v nqURJSlwTQElO4SycjEoXI cnVCCoww5hiKfpJRzeRkHt bGVkIHdpdGggdGhlIHBhdG fyjfDyZ4I9ouAoMQ8pXYKI GMFftU8iNDLaFIZsv8UnhU OhxCwtJ6WghGYnHpNrg0g6 cBN2QYAewrXbRKIypCFzIS Dknl5pQRfaHgPfZ4U5TDHk NFRhm17rbHW5wcCmYdEpuD s4tALjKGE9SP0elMezptIk p3t6gW9nLHWaw3R4DZRtp0 X5LHDlqfVxjOErtFWqSDEu QP1bpzJmXF86UARiLLgiQN quSED3HGW8VSMkmTBmm1ui qsolHj5mRMxiFZ4oPDjbJW 98QLQfWEefQJCsQ7JiB2Q5 YNrlVUSfFJMpbKJuzZ2xox LgnfUsfFo3DCEuXAB7qRFn gFllFXVsFxgrpIZ6HRUlGa EwyuHrs9BkmPl1kFMnNIxf XUGvlL5sgP8kUDCsJTHqsv ZIIidjYAKzBLypr6TnNCrf cGljWHNhMzAgDQpcZXBpY0 0wb1GVy9Env6husJnal1Qp cIMdGD9xfHZhKO0Pu4wiXC OjtJWdDIP3OLjek6xcQLti JYI0RBSgTzJhOCInFF6CIe WuMKjnJFf0HIfrSRj3DVv7 JV4BMbDyFCGsEug1PyB3Xv QkDQg0SAkiCA5YAEH0HIZt YAHgPDuiJHF4QZUfABc8ZG IgXFxzcyAzIFxcZmwgXFxu Q06deCMvQVbwIlMoQQlktO kuEOQmXAR9BJ3DWSXhQfHf V4RTG9pTAS6yCdjoplBmLW LqbxCDRjazHHVhGU5WTSTm WDkvUIi3gbFvBXAsEuLsOW NxB37oe3EDk1NbZV6EYTh2 vsFyqfqzcA6bANHbkzIyw0 IzMFxlcGljWHNiMzAgDQpT bXFxkI9cbiLIXHtsHPXaT4 WwmcUqJPkdGGSgnw3pcZmi IGxhYmVsbGVkIHdpdGggdG bmEIXdvZtxshQpO3S7ahQr RC3bSIWSFIAbrG6tBCZcFD RgUVYfUWCraO0wZRC6v4Rj jlJuLHOYRNQhcFxmWX23eJ BjZWxpYWMgZGlzZWFzZSBh aqWjksOxb45angDnu8HgRQ 0xjWbcGFjNGGpiEmZlWZ7y CTHoebCmd9MeUM3jIHCqcZ JfYGTyhaugjKTeQWj8pRRw CZPcDsOyiIgyx7YyKERhPX drYG95dzWpGT7uYDafRX8c HBgtZE8qFBFzBQQpNFAvDs SthIFhOjFsbFCaUgVuQ27q OiYXdYFnb2KhW7klKA6rlB VpGjjuxAPsRCTijHsoz7Eb eYLxUTRuh7QnkVDiYIfqGV 5fPFP1Ue2nhWXmNWUjisC5 u9NcUFgkDLFcNryfZEQiLQ juz8LuEAIexNVZn9KaQH1I XHBhciANClxzYTMwXGVwaW AWk3LhESZDCxuthMhaGoGx mTKdKmW4EHLjsRSnHSI5EL 4rfGebPNVjAQv2SLrzXKQz K5XnP3TdFVceLbKxFLpgQL HmKGMfPFbhSZPeR5GWIGQm RLW2RnPbIQViVUd9VNlmL6 LHOYGrMXNiMwS0QXR9RcC8 QOm1PRDNNe7wEYmoDmOvZJ SbYqH7LYc2FuTqIXCxMmUb ZJLuSMGbJBcwsDBuVO1tmR khOBEnGPTgBCC6WGImcIYT a0PlMFJmQTabDtCcOFVHYC LYDF3PCeFGTFKdOlZuaXCn HK2WQIJjceGiHGprpOzhdW 6jaTSvZ4emJiWnYwlhmRgz TmVzdERvYzEgDQpcbHRycG FyXGxpbjBccmluMFxzYjMw BJMydXJRc2JlAQRKPoAmBD NpbWVuIEMgaXMgcmVjZWl2 LGRmsW5yJu3ntJQovA3dxR KeIJdpJHBlo9y6xQV7nGTh jWB7gHHtoWsuZqMlPY3pgL QvAMLBLY90gAHxidDqDYXr eJ0dGOTnGYPaQGH2cxtlXY WFOGY9mLEyq5O0ZOzpQYV4 wI0hcUatQzTrF2K1YLHcGS Pif81vxNO5mjJnTeQnEYPb pz5yiY4jFMprjqEpwUlaxq Inr3S6LYWma7X6FZWifqLm uNFxjIMcLNXmEzN3SBHkRf Z5WQGvOKAhvEGzPLQvBM9x VGhlIHNwZWNpbWVuIGlzIG QoyTVhdiUiONYqqm95X1ec FMRxiP0uu8ehBxTaJGBsNP DorGCphZQ4YGYflT5zkP74 bdZryrGFDC9tiRSwBW6QAB NiMFxlcGljWHNiMCANClxw DXKtELnkp6DdCWsecLqqLK VzXwSvMKoUnUzrEMGYQ1yr cZDhMZreLWKXYDuWI7HOZX 7QWOKddUSMAMW9SA0vDZar QBRjA2ZyD1MfwvA8t4uprZ ebq9OwzFHoJN6uzOHtBN5Q XHBhcmQgDQp9 Disclaimer (test code = [id number]) d8ifxLUpQJZfb7gaQXVjfP FuZzEwMzNcZnRuYmpcdWMx GRwuuxRhWNkvx6HjI1TxFo AwMFxhbnNpXGRlZmxhbmcx BWFjTRB2hmIzSTHuSKebLO BgDItdDk2ypRIflXgsMbGw WKAyn6fvwqOSPXayGcDjU7 03PLYnHIhfi1mwl7AxZGAk rGSwj0O2ZJSNkcvhpEl2sS kuF45um7D4HxszQ5ztTZVa XSXfS7RiTV4qAIUbRhs0PL G2BAZ5WSWjSDLjY4PzOY6a NJUplGOnEWx3s2rjoTdjQY PcHXR3g2zmKFfmbmZpES4h qp6drUt8j8bzebJiGGDnTH UogXMNQBRpJ1OmnAivUg3i sOb8tHkxMhpiAAJ6Ssz1IY 0kck24anc4oBupVTEwcawy VhH0KBeyJHYmeenuBKy6FM zdOSTpbML9ZRCxtWEkX3Bm YKYtLD5bmmh3HYT5LYtiCZ YiMjQ3HVMmsJLmFIKpvHew IHvce208QPL2KbXnCG2aW5 Zbb0I3oR1vaAXpRWPfbYBv QuWtZZNake9woQAuGYxsw9 CrENB2zrZ8yQKosAKpGCYi PB35Qsiws6CwQpprb6WhB6 7kwKW6SObru0obUM5wKzI8 vqKlQPxad3dedD9sUaC5BB qmNV9sZG8pRFSbbR6tinos XHBnYnJkcmhlYWRccGdicm AvDp2wmEqfUIY1BRnnO8rj vJ4nZzC4CXenG7qtqB5fYT p5XMjlrWS1EMHpjN0lFK6j fwrgj0qkAQqlBDusHGHwik Y6zpG8UBRyiAOyI9RlcG6k QDHpRN6nxpoyp7udMII1TO xcETQiILO5YjErHQBdq1Sz knj2SqLjv6UgcRVrBVqwL9 2zg910LEGdjdOlC5rqqQHp cpwniIGttqcuVKgkfdG7OQ OafgFmx8GlRQHeJHP0ODkz FZxnkYIoYQLuzFirb7miK5 RscGFyXHBsYWluXGYxXGZz MjBcbGFuZzEwMzNcaGljaF miFUfjXpAoBTCxUAadS6sj RmCzN6WrSXShZsRsuSUpZ8 ggVGhpcyByZXBvcnQgbWF5 VUyyN2e7YJHyqcCybVa9zk GtIwIwWSYoTYD3DJjlzCIw WIUxs2SjzgvxpARpOo6qaT XoCOZgeF9xYKGaEYViJEjl MM0hqRl6SCQHwQRomZIsMj XMLSHoGU36teIfEWBIxynd p1D9GJgzDPBvj8GsjMPjT5 pgx4EyJZOaa80xVW2py4F6 u2pnZOG4MI9pw8VwJOZbaS VcyUAgMKUui2Oeezbbo1Uf KJKutkVej1NnWQYpzgSoiW JhIUGpsrBmkp4tlgDgGILc KTIkO4VjqeqrdNfvdxKwZC Hdsl2zzoTxOTW5VNPZVHOl UYDgs9WdvD3owEZKQWY4pY Glyl0mifQIuFTqCCBmqs97 JUVgON2iD3hfUWFyCGMtqz YaeCLmf8CfJSEosTT0jOIk GF9UMvGId61qYACdBVAFws SpYLNxfOdvhKR3whR0wZ9h IChGREEpLlx+IFRoZSBGRE LfFB8gblBab7RvdpQnmElg VCOvnIAmj4SkeBYnl0MeoM cdu7AhzSLovMKeEX1aVXIr clxwYXIgVVRNQiBMYWJvcm R2t8IbRPGzXWStPLP0xZvd dvy6AZBlfO4aXUIaO9hkhl kyZAkhYUBzv2OwsD4fjLEY sJOhr1AwzAEvjCCTrYYrFH 6nomGlUVcMVKzQUGG7thYk YOIea5HvZDyqR6gqD34kwM kfrBj6tPK1NTL2pO0zNka+ IFxwYXJccGFyIEFwcHJvcH XtAEXdgBrbruKzQ1XfaaXh fO0xxLFlhpSyZS6mIJ5pZ6 B6uCTtUELtggIcj7rlYWun dmUgYmVlbiByZXZpZXdlZC Trq9HiDSbsOZS7MKkoqcKd bmNsdWRpbmcgSCZFLCBTcG SjhBTbVNR3NNqyjvKstcSz IC5qeJ5kgOcwmV9kyUIetN E9ufspZYJbVUOlmOxdBOIr CW2thChhvO6gVmGqJjKwUW ieTM7xGVNnW0jpvPZtYREl KMKsC1tnCtNazA1bkNeeXT xjZjJcZnMyMFxwYXJccGFy XHBsYWluXGYxXGZzMjBcbG FuZzEwMzNcaGljaFxmMVxk WcXsZWCjZZffH7hwSuHaP0 CbCUVqWaXqjVZiV2szRGua WJT2RMBxPK8pqSVzGV61qR Cvf8qbNYdkzLkpul0gU96z jOZiOAfmdQzqCGUar32sq3 QcHFUekrKpdn3kEWEycpO0 cU9fQHVzfKdxJMOcbEFfZT Oyk9OiHXkcdZIfyiCpVBez TVBhOWNcqRYfbgU5bqVjxo PsyfLgYCZvwBkjWGDzd0Un GJQbGKred7Brmp2hrOIyET KklbYZeCfvhZMpjN1pB4Yo WVEiZDFakk9iIKKnfK6zUZ yyp0RdtrjlXEUqEKXnHPUd hsUbsw0aLRKydOBIDD7CDI vqmPPha2TtzmAzP6yIMBN1 NUQwNjYwMjgxKSBleGNlcH SkPDXkhc39GKWfcZ2rvZwq MIFiiX8tzM8jbYjghR2uGk BoYpZiNZsrHO3aTLSaN3xk aZJbTVEfCUDaT2whVrKvuK 9jaFxmMVxjZjJcZnMyMFxw YXJ9fQ== Embedded Images (test code = [id number]) [facility] [id number] 19:23:05* Test Item Value Reference Range Interpretation Comme nts Case Report (test code = [id number]) Surgical Pathology ?Case: [id number] ? Authorizing Provider: ?Dominic Keita MD ? [...] HPylori ? Final Diagnosis (test code = [id number]) l4zaxZGcWYRzt6anGKVmaC FuZzEwMzNcZnRuYmpcdWMx IBkpfeZrOZtziMjgCUB3TH OwGJ6qoChipAh0xTsjJEBn kqX5tSJaXUfyb0mtCFI7z0 ptvobaDQHbNTfdCd4rjHPs jOisUfXtGXMfLMb6iN70ZN VhdZ3wsJAwBMn6WKLzhUAc hxGhLfXsEATflCNiaPN7YN UbHN3albqaLYiqSRjyMDQn ycU9RWDohHXzO6BqYHHgWX 0geoexGRA8TRbhQLGfRQV5 FrQaJCYay2Hcreu3LvUsnP FyZFxwbGFpblxmczIwXHBh orEXMlQYSZ4BOJUIWUPUL5 qMQQJUOR5KIKVRVqiqlIVm HRKlTEOkMYXFIS7DGSAiK6 yGGwZbAA7UQPEgYYVcuRPf LUYfhvXRNdYFHF7CEQ6LDE wgQklPUFNZOlxwYXIgICAg EUSqGOpTZ8UQIIOmRZITH1 PJXIaZAQsqMn5fYJVIQD4I E9zKE8MCNZAELE4JVHqlBH GnIKVcFQZrUI3IRDesVHCD LT7OPDRFRFCMEDpRYKTSKS RCZJzCVTODE9DEDEkEPSIg tqpkUXRqAu5lM5JRRDZUZR wgQklPUFNZOlxwYXIgICAg BKGrTSFJD5DWLfODYT0HY8 0FEJQGFOVEBD9NNVEDDGzY BC1JXNUHTEKQXGGXZ0NliY FyICAgICAgLSBOTyBFVklE QD2GNTMYLlURJLoANYRfDG lTRUFTRVxwYXIgICAgICAt MZ4BWKnkRKAAMY6DDVPVMr dBTklTTVMgSURFTlRJRklF XUZDGEJXXP7LKa4THFLYBp xwYXJccGFyfXtccnRmMVxz c6YrM9MwHkLxWEogtlOqGO MfGvbofnuxMSLfIOG8dzUt NAHnEWipQOMeSNjjBk6elJ NegQbwSgLcFWQlp3hvdsKU HNgqYjUlQ319RCEzBTmsi3 dzy8VtINNwfXAsj4R0ONAT nklpvSo8t3ipXyOqEmT0bO DmKWcaN7bvpnLawHAgP4Uj aHFxwUd7zUykP24ch4F8Yk zqX2lsKSVoISLxH3HhRF8k NDKdQrb6VZI4NVW0GAAgCS EeG1DqSS8dYLHryJIpATx8 h7txcVhhAURjDBR5i9sxGK bvmcF2BV2jto5inJl0t4cu czEgRGVmYXVsdCBQYXJhZ3 XecMueGq8wvIn8jTxgEgss BXZ3Grm4LH0sjd99mbl3hF hmWFTrayryLoU7JQirMUBp ekjoNOh7QTahQBVarHB8SP XavAJuR5AqUXIiGT1qsan9 TVJ5GQsaJPOkYdD4HOOoxL ReYWUkcCuuFTebe390RAJ6 HpUeJF3bB3Oxu1O1hO4gyF IxQTXqiAIbRbUeJZYxrt3e eWTrXNhqx6XdNYE9ugU2cP AvqPMbZBHdBW81Aswnd9Sp LaqqINJ1XSTfwcEld0Sas4 wxHpPsfaEgS5faC5MyGYZm BTMaQGWqYqOmscVts9Laq9 VarWWloOw5w4ivATYsGJKu bLhgt6ejJHD3MFNtY4R3aG Xri8rqHBxjYTDhaKN9sjV6 ZCVubIFsF7ZucW7qPUOgSA 1izyz0l7hsBQH5VPnbVIFi IoQ6vdJ3PTWlxHWlNTIffH dcOTnvd403EDB9JcSxHWOf l9FhD5NefBdaV73quEdaE7 3qZRCabQhnrB0eaPaoyO1t ZjBcZnMyNFxxbFxwbGFpbl xmMVxmczIwXGxhbmcxMDMz SRgdL8tuEfQtKYFqvQfeSL brv6NoJOVfCFAfEvffxfFi XHBhciBJIGhhdmUgcGVyc2 9uYWxseSByZXZpZXdlZCBh jHbou3HmC2itNE6uV9InyI CaqlEwrqDnTEcjWIOte7o3 tSYbnFynw2CucCGyVM27va HbVOSkDRO3ABRfx2jyIB45 lewdLgWodO15oqSuicXrYY Ecp7hfW5pioGIvl3Iwn2Wf juMaUAdud8OtJL5gvGEzvb uscWV5UOYewUWbilWfmsN1 fLlsAKWhlP8nlG0tvBcxdN 2gRsOcYiKyFKiwCC4fRCJy S2pchJWwWZXbFBXaB8kfIi MngU7gnLlyBowixmH1YAFw cn19 Clinical Information (test code = [id number]) Shivani Schuler is a 47 year old female with IDA1. Gastric polyp x 6 r/o adenoma2.Duodenal Bx, r/o Celiac disease 3. Gastric Bx r/o HPylori Gross Description (test code = [id number]) g1ljeFTtEECegLZIYPC7MZ QtKN0ndDkdtSq1sOveYTCy liD3mSFyGZfic3ijCHW3a7 icgrJRKtpsLZAaRV4cTEwd BVLzID0tIqHxSIRyXfRhAC BhcGVydzEyMjQwXHBhcGVy kHZ2QYSvSC4prljsYEaiCJ pmUOTgrhM5RBXduBHwR3Qe CIHcBK0gxhtqQVY7FRJOSy cyFv3mqZVxsVynUaZuVaRm YXJzZXQwXGZuaWwgQXJpYW f3nL2BGaivWXS4IUYLUmpg HjzhaDeow3BcnNBkDHRdAI xcaWQgNTEwMDAgXFxkYiBP DrSyYnA8Mnx8EMU5UpX1BV e8AYYGAFVtOvpuCYZ8FsT1 MMh3BCQhHG4kZIcuyMZbCE fgSinyXHuxL897POlvVJPl Z4OvR1JwCDtmFjWdEVmjYO VvIHLyPCnmKSAlJ1SVVFXg KXV9VnMmKFIwZAl4ONhhK6 FHMCUyHLCzDaK1RMHiQvP4 LOj7HEXFKq8cEIgoJkBcRO u9XUG1TYc3JpJwBKThJoBk YYTuRVSnOJlgjNBqBF0ukK hfNVWnAG0FPCOdCNirYPAd BwLcT4PEM3nLSQ1uGYazeY JjaFxmczIyXHBhciANClxw GSUxOQ4YQDGgHNgkYQt0wu SzJRTtKsPmLXDoX70qu3WD u1LrNA5JENu1gsJurvxjwR 7tPAEgnsLjOWfTgYRxtF8g yiAIAAxcCEHjA9FeglOzKA ovBNMujv8onHfdUJkkFgKh bGVkIHdpdGggdGhlIHBhdG fiyzGuI6D4byDbMR3oWPCL ISCzdX5uAWTaJGYdd6HwnB VsqDdxE1XbtUOqGuLhr6l4 tIX5DKCpndZmVLFgmUDnNB Gurq4tTEqwToWrS5U5GKFu JVQax23kfYM2duYnNrSkxP j6xBMtCXD4VT1lyTtuzkPu p9t6pQ6mZCQsy3B5NEFpn7 A5ZJVdvcKjsQLloZMoAOWz OO3tddHuND22LTPaSPnpGN xpKPW5SGX1QKXghDIus4jg jgnrOa5dYYaoLH6uMDicWJ 73ITLoWMumBTNpM9CtZ6W9 KDseHMVeEBHxzSWqdT3gsy YtjnWulMj8RVQcZSH0tINe yVfyZUOhEhnstVW5OOMzYc ZfduTkc6UeiFv6dNPvTZkc MROobF5poB6rACTzMZUegw KVDoyyTULvIWekk8GmKLls cGljWHNhMzAgDQpcZXBpY0 6ei7CBh0Nad9mxzSxyr5Fa gBZgRS7xuRZvOQ0Zr3ysSO YxeYCfWIP9TVcbt4hoGOvq WSB7CODvOjZsPTXrPO4RKx YgAMnvJIw9SZhdVAa3AGf0 EQ4WGaTzPMNxYwg9KkL6Ku ErXNo0VXjkGD2IOIY5ZKBs PXWeBHarHAT4SMJcXOh9JZ IgXFxzcyAzIFxcZmwgXFxu Y62gcTLfOPifUwLwQAdhkO dyDCUdGEV3GS8BFPGaCjEs O7XYZ4tSWP6kUgypfcPmKX HtjdXYUonwBUFyLE1FIDMv FFkwTIc2suAbVNYcCqBeXO GvQ44hd7TCj7XoHY5LADp5 srHjcbuzyC9cTDTmnvTjt8 IzMFxlcGljWHNiMzAgDQpT vHDgxD5tedFERIryXBBzE4 IounHwYIedCIXwvm5ucMbn IGxhYmVsbGVkIHdpdGggdG lsUKWryHwukwKlM6J6lvWo EJ9nJJZXWKDqyT7vPPDsXX CyJGMkPWRzhJ7uQJF6v7Rm lbFcRMUKKHRwvIcgTO81dT BjZWxpYWMgZGlzZWFzZSBh azXizzYww23remKyq8DoEQ 0hyQmyTYhGULmoXgTwGF0q IKQlirLnv4ZbNP9gMWDekW RvEZIxqwbyuAZuIWf0rWCt DRHeZzOseHvsj4CzQMLqLG dnVW91hoYaND0bMLzzEJ7p GIwyDX4yDNVyMKYjZYFfQk HnpRThNpMhkGBtLcRjZ18p SmDTmZHst9UvQ5jmZR6lqL PmZcranHKtYBTevFuew8De kSArSLAdt6DcnDQcBUwtSS 8xRAR5Hd4cnWSwYIBczeH8 g7MiTOxtHVIhFcuaEYYhWX xul3KzVQXaqGQPn7LqRG0S XHBhciANClxzYTMwXGVwaW QLz6BnJVHMGsfnbXuhDpMq aAJwCnH0FVLidGPzPJL7NZ 9dfXizIEUwQKl2VEgxOJHu E7QrZ0ZsHOfrOvWnRTzhDA JwOCSmRLmqRBEsB0CYLKIe FQA7WrIgPRRmVQb9CWlgF8 GEKCJaEMTvWlC1GWH4NgD1 YYs5JEISSa7rSAwqZaHpSW UgGmR6HFl2KxEzPFGrDvYe IDQmBJYnRMawkCVuDY6cpO qwMVKfDDYfYSA4LIWenJIO t1OiLBGlMGipXiJkCOCAOD JUUN7TRwEFMGGqGcKjuTVn PO1JSIRxbpZmJQlilMgngP 1qqFOtO9goWxGbXsjwpTuh TmVzdERvYzEgDQpcbHRycG FyXGxpbjBccmluMFxzYjMw LPSdhZTFu4KkPFYBOdRqVB NpbWVuIEMgaXMgcmVjZWl2 BIFjvK4bNx3rgDKxhG2cxT PbXFhkNSNaj2v4eCA3dAMd aAH9wTUtkIooShOeVJ8cuU OjFYBHMD18fWZhkaJnRYHk aD0eLLRoLSSdUCD1fsegGZ SLHXP3iCFdh7X5RFcsUZA9 rV4urZrnIaQfB1P9FSJvLK Cdb95wrKB1atHsImToVKYy yn4wmL0qYFbvarWogYwvwe Nkh5P6VVKwy6M4SUWdbgUb fXUqeVUmQSXoJnR7UETuJh C3MCViBVRcrMMyPOUdLX9i VGhlIHNwZWNpbWVuIGlzIG DgoHAshsWcDDLliz57W6dx NMHitS0kn6hcKrAjCEEyOY TcvGSlgTA8SXZydT9odE88 euFjpnVRZO9hyKDoFV1SJA NiMFxlcGljWHNiMCANClxw TPRtGKtkr7NfFLmgxQgwLC OdHtNaWEdDaSqgKSBBB8ht pSGcMUmhUDXFRGaBS0VRAH 3RPYKodBENYMY5HC7aNYuc EIXhE4PvX5KwqlL2o2lhrE sxt8SoeDHaAA4ipVMcXH0X XHBhcmQgDQp9 Disclaimer (test code = [id number]) t7lxaWHfKETvw5wlOCVugK FuZzEwMzNcZnRuYmpcdWMx RBdyswVeYZfvc9AxI9YiFd AwMFxhbnNpXGRlZmxhbmcx WESgJND1lzZvSBXlTSoeQK WmFSebWr8whGExvQyvWiBi DNBhs8ccbmQCKWhuHeMyT6 39UDVaDXgpf9xoq4WdHLMn iTTlk9T8SHVDwydggUx3jC geW86hr7W8IauxF2cvOBTf SBWzZ3ImRE2cFYDrJso0BS J1NIC2JYUsHKGbL1BjQY0t XJLynRQwEMt8r4lnkHaaEB YjGDK2s8jlEClxgbXdUD0b tz5yiAw4q0yimqEkLZGpDI ZlpETPFGFzK9OadQkrNi1t oGg1cJccHewjUSC3Xeb1NZ 6pms84azu8rBgnDYSkoxpe QiW9NElvMCCzrfjcOHl9TJ lfAHFuxUC2KQYhrJXgY5In LEWoIR3okwo8MMQ1ITtqQI FuPcG7FIDtuLEnMGRqvZle QLvyx959BFJ7NvBoSF1iN6 Wjy9E9rI4tvUBxJEEwlIUq SlAyFWCxcc6khHAhYPqgw0 GrARV1ryX4aZPonFTkDRZy OK45Yitpz7ItApdwk1WfN2 6tlSX7ZMuxb1wyGE0bQkC2 nfWgZLqyq5jpoI7vLrD5GA vdTE1qNF8fVUQzgX0vajok XHBnYnJkcmhlYWRccGdicm XbUp1czIclKKT9BKdlO3br gD3nZqW9UEnaF4kcoG3bVQ g7RIyhuDV3RKYziZ5hBE5p hmsvv7fzCMvtUWgyATLifx E2jpJ0FKVkmQWsU8WipO4g QJOcNO9idkcpv0weOHL6RO vyESDqAIA6LeKaJAAlm8Qg jbs7IvKrc5ExcKEcXGlhD8 6no843JOUhvjCdO0cqgJZy ntlheWSvrhuwHNkqoaR2VY ClxxQxa8MsRDOsPKY7RSoo GWdxqVYyQRBpdCtef2vqU4 RscGFyXHBsYWluXGYxXGZz MjBcbGFuZzEwMzNcaGljaF twANkmOyLySRHnJYajC3ft ArEtJ7QnJIJqTkVevQJjU7 ggVGhpcyByZXBvcnQgbWF5 ZIeeR9f0GFRmswRjoCs2mm OgHmWoJQRdYDI6ZIwuaCIg RBEwt5GlzutywIFzCj1lrJ MkRITbyW6hNBBzDGDqBKoe CX9csDy9RJFYaQDesCLmAj XSEYJaFN33amRiTTKLsqww m9M6BBokFQZci1VdqQBaR7 qbt8JhUSVdy26iLZ2ue4G4 e0roCXG3QW2qy0UbJSYbkS XpiCNtDGKjo5Wnkwvvc2Ky FJDdlgLuh9YzXECsrnKkeQ ErWVWcqaLzne7qdiAaCAZy TFBtO2UkpffeuJykteIeOY Gzro6cfhNfPWP1GMHCHDDv SLTqy2NdlG2hlFMDRDB8hH Lcni0enyEEpYKbPKIidv99 BNAdRG5oV6shXOFhIICcfc EfuTExx7StUGEghFX6yOSa VW3LWkNTa35fVULwUKLAdl YeAICfzDvsiSG7caU8wK3x IChGREEpLlx+IFRoZSBGRE GgPY6zomFqx7EeruCicDdu OVFweZZjg6RgeKXec6VeqA fiy4UghOWpgIMpBB1aHCWb clxwYXIgVVRNQiBMYWJvcm V8s4WfFAUlFRMzQHE9lYrx wds8ZAVkvU1xEXErS0parf jeBGxsBRGcg7MknA6vsNPS pOKld8QbgVOhkMUJxTYzZK 3xvpGmLEeSVCpGIOF4rlFu PQPry3VgUNrjF8riU63laT alkTl7xDY1PGM7zR5uNgn+ IFxwYXJccGFyIEFwcHJvcH QfEWUwxKlqwrNeL1FradRl pS2utREvbmDxNP7tTY8zD8 E2tIVzPVNiteSsb0ijMWtn dmUgYmVlbiByZXZpZXdlZC Coo9NnCDmfBHE6SYmckiTx bmNsdWRpbmcgSCZFLCBTcG FxfHNkJXZ6LJsewaAhijGz NP0teR1nbPfktQ7orHCcgP Q1dvonOVQsAVAjnSlgLRJm NS8jtDfivZ8dYbJbUxJuDO saUE2wACOgU1qzpYZfJBEb EAXnE0evOhVwvV7rmKvxMK xjZjJcZnMyMFxwYXJccGFy XHBsYWluXGYxXGZzMjBcbG FuZzEwMzNcaGljaFxmMVxk IdUhWUFfHRouT0zmTpOyQ9 TtWCEyRkYrgSAnM1plISzv WJB4MSPbCQ3cpLLuMW33qL Qmq1skLMekyVnfso2uL72j hFHnXMkihGegUYNki72gg7 HoHETotdWsnb1hWZCwseQ1 wK7cLYAgwZwtWDQiuDIkZF Dzj5GuYSzemQIrmwLaSXxe SQOwRHMbmRQpmyP0zqJvnf AutkNfUAJspQbkYRWuc3Ez QOZdSPvdz6Lanl4icVKcFW CthoPXkBpcpGYgxJ7oB2Kf DXHdNNYmum5vNPHoqK0sOU dkj1TqhzecOKNtWFZtSRWj omYtcl1lBNBgaSAOLV0IXP fgnACqo1YihaKgF7eOEWY0 NUQwNjYwMjgxKSBleGNlcH BwVYXtqt50XGDczV2weFnt IOUhuN5kjF4xrVkxnA8jGk EuBxBvBOfsKF6bCHGiX9dq jXFcFUKaHJMrF1glCvJsfX 9jaFxmMVxjZjJcZnMyMFxw YXJ9fQ== Embedded Images (test code = 4650366607) [facility]. METABOLIC PANEL ([id number])2022-11-03 17:25:32* Test Item Value Reference Range Interpretation Comme nts NA (test code = 5601676807) 139 mmol/L 135-145 K (test code = 1105404580) 4.2 mmol/L 3.5-5.0 CL (test code = 3940118684) 105 mmol/L 98-108 CO2 TOTAL (test code = 4507424749) 26 mmol/L 23-31 AGAP (test code = 2422816835) 8 2-16 BUN (test code = 6660356631) 9 mg/dL 7-23 GLUCOSE (test code = 7033988547) 93 mg/dL 70-110 CREATININE (test code = 2436387905) 0.60 mg/dL 0.50-1.04 TOTAL BILI (test code = 0835689269) 0.2 mg/dL 0.1-1.1 CALCIUM (test code = 4241601036) 9.2 mg/dL 8.6-10.6 T PROTEIN (test code = 8078706195) 7.0 g/dL 6.3-8.2 ALBUMIN (test code = 8048535898) 4.2 g/dL 3.5-5.0 ALK PHOS (test code = 3594391595) 118 U/L 34-122 ALTv (test code = 1742-6) 34 U/L 5-35 AST(SGOT) (test code = 4812943562) 34 U/L 13-40 eGFR (test code = 7371243296) 108.1 mL/min/1.73m2 ZAINAB (test code = ZAINAB) Association of [...] or urine or abnormalities in imaging tests). [facility]. METABOLIC PANEL ([id number])2022-11-03 17:25:32* Test Item Value Reference Range Interpretation Comme nts NA (test code = 7672212992) 139 mmol/L 135-145 K (test code = 1175713441) 4.2 mmol/L 3.5-5.0 CL (test code = 0313249496) 105 mmol/L 98-108 CO2 TOTAL (test code = 0322477750) 26 mmol/L 23-31 AGAP (test code = 3823190015) 8 2-16 BUN (test code = 0060968741) 9 mg/dL 7-23 GLUCOSE (test code = 1960928794) 93 mg/dL 70-110 CREATININE (test code = 2081565018) 0.60 mg/dL 0.50-1.04 TOTAL BILI (test code = 7099557408) 0.2 mg/dL 0.1-1.1 CALCIUM (test code = 2233437488) 9.2 mg/dL 8.6-10.6 T PROTEIN (test code = 6472410347) 7.0 g/dL 6.3-8.2 ALBUMIN (test code = 8749126066) 4.2 g/dL 3.5-5.0 ALK PHOS (test code = 3956523217) 118 U/L 34-122 ALTv (test code = 1742-6) 34 U/L 5-35 AST(SGOT) (test code = 2870018040) 34 U/L 13-40 eGFR (test code = 2289510194) 108.1 mL/min/1.73m2 ZAINAB (test code = ZAINAB) Association of [...] or urine or abnormalities in imaging tests). [facility]. METABOLIC PANEL ([id number])2022-11-03 17:25:32* Test Item Value Reference Range Interpretation Comme nts NA (test code = 6219189585) 139 mmol/L 135-145 K (test code = 4668998084) 4.2 mmol/L 3.5-5.0 CL (test code = 4738571162) 105 mmol/L 98-108 CO2 TOTAL (test code = 9339485118) 26 mmol/L 23-31 AGAP (test code = 8738307535) 8 2-16 BUN (test code = 3478255416) 9 mg/dL 7-23 GLUCOSE (test code = 8678548202) 93 mg/dL 70-110 CREATININE (test code = 8097292431) 0.60 mg/dL 0.50-1.04 TOTAL BILI (test code = 4529196983) 0.2 mg/dL 0.1-1.1 CALCIUM (test code = 1450532294) 9.2 mg/dL 8.6-10.6 T PROTEIN (test code = 9600720018) 7.0 g/dL 6.3-8.2 ALBUMIN (test code = 8867325261) 4.2 g/dL 3.5-5.0 ALK PHOS (test code = 5073998604) 118 U/L 34-122 ALTv (test code = 1742-6) 34 U/L 5-35 AST(SGOT) (test code = 9158271703) 34 U/L 13-40 eGFR (test code = 7671159145) 108.1 mL/min/1.73m2 ZAINAB (test code = ZAINAB) Association of [...] or urine or abnormalities in imaging tests). [facility]. METABOLIC PANEL ([id number])2022-11-03 17:25:32* Test Item Value Reference Range Interpretation Comme nts NA (test code = 3894996246) 139 mmol/L 135-145 K (test code = 1798857035) 4.2 mmol/L 3.5-5.0 CL (test code = 4612298003) 105 mmol/L 98-108 CO2 TOTAL (test code = 8571727607) 26 mmol/L 23-31 AGAP (test code = 7194238420) 8 2-16 BUN (test code = 5866748300) 9 mg/dL 7-23 GLUCOSE (test code = 7848431119) 93 mg/dL 70-110 CREATININE (test code = 9161393739) 0.60 mg/dL 0.50-1.04 TOTAL BILI (test code = 4671929286) 0.2 mg/dL 0.1-1.1 CALCIUM (test code = 4696948307) 9.2 mg/dL 8.6-10.6 T PROTEIN (test code = 2522108427) 7.0 g/dL 6.3-8.2 ALBUMIN (test code = 9803217344) 4.2 g/dL 3.5-5.0 ALK PHOS (test code = 4844651922) 118 U/L 34-122 ALTv (test code = 1742-6) 34 U/L 5-35 AST(SGOT) (test code = 7235063050) 34 U/L 13-40 eGFR (test code = 1205028020) 108.1 mL/min/1.73m2 ZAINAB (test code = ZAINAB) Association of [...] or urine or abnormalities in imaging tests). [facility]. METABOLIC PANEL ([id number])2022-11-03 17:25:32* Test Item Value Reference Range Interpretation Comme nts NA (test code = 1915721320) 139 mmol/L 135-145 K (test code = 8606049890) 4.2 mmol/L 3.5-5.0 CL (test code = 0181317880) 105 mmol/L 98-108 CO2 TOTAL (test code = 3704335950) 26 mmol/L 23-31 AGAP (test code = 2685059929) 8 2-16 BUN (test code = 0689609175) 9 mg/dL 7-23 GLUCOSE (test code = 3877238119) 93 mg/dL 70-110 CREATININE (test code = 9394056775) 0.60 mg/dL 0.50-1.04 TOTAL BILI (test code = 6948194756) 0.2 mg/dL 0.1-1.1 CALCIUM (test code = 6762714572) 9.2 mg/dL 8.6-10.6 T PROTEIN (test code = 5956510003) 7.0 g/dL 6.3-8.2 ALBUMIN (test code = 8103983050) 4.2 g/dL 3.5-5.0 ALK PHOS (test code = 9482881402) 118 U/L 34-122 ALTv (test code = 1742-6) 34 U/L 5-35 AST(SGOT) (test code = 7743504502) 34 U/L 13-40 eGFR (test code = 0812529314) 108.1 mL/min/1.73m2 ZAINAB (test code = ZAINAB) Association of [...] or urine or abnormalities in imaging tests). [facility]. METABOLIC PANEL ([id number])2022-11-03 17:25:32* Test Item Value Reference Range Interpretation Comme nts NA (test code = 2926440995) 139 mmol/L 135-145 K (test code = 0157664922) 4.2 mmol/L 3.5-5.0 CL (test code = 5294644540) 105 mmol/L 98-108 CO2 TOTAL (test code = 2100050171) 26 mmol/L 23-31 AGAP (test code = 0934487283) 8 2-16 BUN (test code = 4529965103) 9 mg/dL 7-23 GLUCOSE (test code = 9245659860) 93 mg/dL 70-110 CREATININE (test code = 8318275583) 0.60 mg/dL 0.50-1.04 TOTAL BILI (test code = 8701412162) 0.2 mg/dL 0.1-1.1 CALCIUM (test code = 6860506226) 9.2 mg/dL 8.6-10.6 T PROTEIN (test code = 1519836511) 7.0 g/dL 6.3-8.2 ALBUMIN (test code = 3775879192) 4.2 g/dL 3.5-5.0 ALK PHOS (test code = 3187635133) 118 U/L 34-122 ALTv (test code = 1742-6) 34 U/L 5-35 AST(SGOT) (test code = 1693646930) 34 U/L 13-40 eGFR (test code = 4612651273) 108.1 mL/min/1.73m2 ZAINAB (test code = ZAINAB) Association of [...] or urine or abnormalities in imaging tests). [facility]. METABOLIC PANEL ([id number])2022-11-03 17:25:32* Test Item Value Reference Range Interpretation Comme nts NA (test code = 7837303419) 139 mmol/L 135-145 K (test code = 8797096244) 4.2 mmol/L 3.5-5.0 CL (test code = 2339576518) 105 mmol/L 98-108 CO2 TOTAL (test code = 5896828331) 26 mmol/L 23-31 AGAP (test code = 1281347128) 8 2-16 BUN (test code = 0976308988) 9 mg/dL 7-23 GLUCOSE (test code = 5350993478) 93 mg/dL 70-110 CREATININE (test code = 9981153043) 0.60 mg/dL 0.50-1.04 TOTAL BILI (test code = 6683428065) 0.2 mg/dL 0.1-1.1 CALCIUM (test code = 1309289807) 9.2 mg/dL 8.6-10.6 T PROTEIN (test code = 4188992656) 7.0 g/dL 6.3-8.2 ALBUMIN (test code = 5249814292) 4.2 g/dL 3.5-5.0 ALK PHOS (test code = 9819216390) 118 U/L 34-122 ALTv (test code = 1742-6) 34 U/L 5-35 AST(SGOT) (test code = 2225599811) 34 U/L 13-40 eGFR (test code = 9018259019) 108.1 mL/min/1.73m2 ZAINAB (test code = ZAINAB) Association of [...] or urine or abnormalities in imaging tests). [facility]. METABOLIC PANEL ([id number])2022-11-03 17:25:32* Test Item Value Reference Range Interpretation Comme nts NA (test code = 2988008908) 139 mmol/L 135-145 K (test code = 6414981472) 4.2 mmol/L 3.5-5.0 CL (test code = 7018595838) 105 mmol/L 98-108 CO2 TOTAL (test code = 1595545034) 26 mmol/L 23-31 AGAP (test code = 6478896644) 8 2-16 BUN (test code = 5590548495) 9 mg/dL 7-23 GLUCOSE (test code = 1503792456) 93 mg/dL 70-110 CREATININE (test code = 1954359134) 0.60 mg/dL 0.50-1.04 TOTAL BILI (test code = 9209925528) 0.2 mg/dL 0.1-1.1 CALCIUM (test code = 1031376824) 9.2 mg/dL 8.6-10.6 T PROTEIN (test code = 3831976281) 7.0 g/dL 6.3-8.2 ALBUMIN (test code = 6128739312) 4.2 g/dL 3.5-5.0 ALK PHOS (test code = 3995864090) 118 U/L 34-122 ALTv (test code = 1742-6) 34 U/L 5-35 AST(SGOT) (test code = 2894309478) 34 U/L 13-40 eGFR (test code = 9805621142) 108.1 mL/min/1.73m2 ZAINAB (test code = ZAINAB) Association of [...] or urine or abnormalities in imaging tests). [facility]. METABOLIC PANEL ([id number])2022-11-03 17:25:32* Test Item Value Reference Range Interpretation Comme nts NA (test code = 5782939936) 139 mmol/L 135-145 K (test code = 7523342086) 4.2 mmol/L 3.5-5.0 CL (test code = 6194567968) 105 mmol/L 98-108 CO2 TOTAL (test code = 0149426297) 26 mmol/L 23-31 AGAP (test code = 1740770531) 8 2-16 BUN (test code = 9539122737) 9 mg/dL 7-23 GLUCOSE (test code = 1595957157) 93 mg/dL 70-110 CREATININE (test code = 6833726127) 0.60 mg/dL 0.50-1.04 TOTAL BILI (test code = 9588077296) 0.2 mg/dL 0.1-1.1 CALCIUM (test code = 4597218317) 9.2 mg/dL 8.6-10.6 T PROTEIN (test code = 7907662120) 7.0 g/dL 6.3-8.2 ALBUMIN (test code = 9481345260) 4.2 g/dL 3.5-5.0 ALK PHOS (test code = 7413845471) 118 U/L 34-122 ALTv (test code = 1742-6) 34 U/L 5-35 AST(SGOT) (test code = 2632425637) 34 U/L 13-40 eGFR (test code = 16070-9) 108.1 mL/min/1.73m2 ZAINAB (test code = ZAINAB) Association of [...] or urine or abnormalities in imaging tests). [facility][id number][facility] 17:25:32* Test Item Value Reference Range Interpretation Comme nts NA (test code = 1889154044) 139 mmol/L 135-145 K (test code = 5893514237) 4.2 mmol/L 3.5-5.0 CL (test code = 5268381195) 105 mmol/L 98-108 CO2 TOTAL (test code = 5606551522) 26 mmol/L 23-31 AGAP (test code = 0359906414) 8 2-16 BUN (test code = 5343717843) 9 mg/dL 7-23 GLUCOSE (test code = 2278379550) 93 mg/dL 70-110 CREATININE (test code = 2758417411) 0.60 mg/dL 0.50-1.04 TOTAL BILI (test code = 8456870129) 0.2 mg/dL 0.1-1.1 CALCIUM (test code = 6225558033) 9.2 mg/dL 8.6-10.6 T PROTEIN (test code = 4833978170) 7.0 g/dL 6.3-8.2 ALBUMIN (test code = 5699064130) 4.2 g/dL 3.5-5.0 ALK PHOS (test code = 3877105126) 118 U/L 34-122 ALTv (test code = 1742-6) 34 U/L 5-35 AST(SGOT) (test code = 5910086594) 34 U/L 13-40 eGFR (test code = 77009-2) 108.1 mL/min/1.73m2 ZAINAB (test code = ZAINAB) Association of [...] or urine or abnormalities in imaging tests). [facility]. METABOLIC PANEL ([id number])2022-11-03 17:25:32* Test Item Value Reference Range Interpretation Comme nts NA (test code = 7370321113) 139 mmol/L 135-145 K (test code = 6161792889) 4.2 mmol/L 3.5-5.0 CL (test code = 3421763270) 105 mmol/L 98-108 CO2 TOTAL (test code = 3490847992) 26 mmol/L 23-31 AGAP (test code = 9248852636) 8 2-16 BUN (test code = 9186935564) 9 mg/dL 7-23 GLUCOSE (test code = 1121556075) 93 mg/dL 70-110 CREATININE (test code = 2575432116) 0.60 mg/dL 0.50-1.04 TOTAL BILI (test code = 3867942799) 0.2 mg/dL 0.1-1.1 CALCIUM (test code = 4280542146) 9.2 mg/dL 8.6-10.6 T PROTEIN (test code = 1778554152) 7.0 g/dL 6.3-8.2 ALBUMIN (test code = 5038341224) 4.2 g/dL 3.5-5.0 ALK PHOS (test code = 2126748184) 118 U/L 34-122 ALTv (test code = 1742-6) 34 U/L 5-35 AST(SGOT) (test code = 2430834326) 34 U/L 13-40 eGFR (test code = 92962-3) 108.1 mL/min/1.73m2 ZAINAB (test code = ZAINAB) Association of [...] or urine or abnormalities in imaging tests). [facility]. METABOLIC PANEL ([id number])2022-11-03 17:25:32* Test Item Value Reference Range Interpretation Comme nts NA (test code = 3559734929) 139 mmol/L 135-145 K (test code = 5593716536) 4.2 mmol/L 3.5-5.0 CL (test code = 6791334464) 105 mmol/L 98-108 CO2 TOTAL (test code = 3969931453) 26 mmol/L 23-31 AGAP (test code = 6085319066) 8 2-16 BUN (test code = 7253202209) 9 mg/dL 7-23 GLUCOSE (test code = 8019237233) 93 mg/dL 70-110 CREATININE (test code = 0661003720) 0.60 mg/dL 0.50-1.04 TOTAL BILI (test code = 0780916235) 0.2 mg/dL 0.1-1.1 CALCIUM (test code = 6312275760) 9.2 mg/dL 8.6-10.6 T PROTEIN (test code = 6853219698) 7.0 g/dL 6.3-8.2 ALBUMIN (test code = 2557918107) 4.2 g/dL 3.5-5.0 ALK PHOS (test code = 0498856692) 118 U/L 34-122 ALTv (test code = 1742-6) 34 U/L 5-35 AST(SGOT) (test code = 5953109838) 34 U/L 13-40 eGFR (test code = 69247-1) 108.1 mL/min/1.73m2 ZAINAB (test code = ZAINAB) Association of [...] or urine or abnormalities in imaging tests). [facility]. METABOLIC PANEL ([id number])2022-11-03 17:25:32* Test Item Value Reference Range Interpretation Comme nts NA (test code = 6678768860) 139 mmol/L 135-145 K (test code = 1318940136) 4.2 mmol/L 3.5-5.0 CL (test code = 6432521631) 105 mmol/L 98-108 CO2 TOTAL (test code = 2614146004) 26 mmol/L 23-31 AGAP (test code = 9082309753) 8 2-16 BUN (test code = 5174577950) 9 mg/dL 7-23 GLUCOSE (test code = 3625186556) 93 mg/dL 70-110 CREATININE (test code = 9742643346) 0.60 mg/dL 0.50-1.04 TOTAL BILI (test code = 9970706720) 0.2 mg/dL 0.1-1.1 CALCIUM (test code = 7104409132) 9.2 mg/dL 8.6-10.6 T PROTEIN (test code = 7323933160) 7.0 g/dL 6.3-8.2 ALBUMIN (test code = 8718131128) 4.2 g/dL 3.5-5.0 ALK PHOS (test code = 5706308897) 118 U/L 34-122 ALTv (test code = 1742-6) 34 U/L 5-35 AST(SGOT) (test code = 6438928696) 34 U/L 13-40 eGFR (test code = 49342-6) 108.1 mL/min/1.73m2 ZAINAB (test code = ZAINAB) Association of [...] or urine or abnormalities in imaging tests). [facility]. METABOLIC PANEL ([id number])2022-11-03 17:25:32* Test Item Value Reference Range Interpretation Comme nts NA (test code = 0238048682) 139 mmol/L 135-145 K (test code = 2014062613) 4.2 mmol/L 3.5-5.0 CL (test code = 2356436942) 105 mmol/L 98-108 CO2 TOTAL (test code = 9935393648) 26 mmol/L 23-31 AGAP (test code = 1922552191) 8 2-16 BUN (test code = 0845689244) 9 mg/dL 7-23 GLUCOSE (test code = 4209692005) 93 mg/dL 70-110 CREATININE (test code = 4405929468) 0.60 mg/dL 0.50-1.04 TOTAL BILI (test code = 4035579832) 0.2 mg/dL 0.1-1.1 CALCIUM (test code = 5030605357) 9.2 mg/dL 8.6-10.6 T PROTEIN (test code = 4161144158) 7.0 g/dL 6.3-8.2 ALBUMIN (test code = 7745605041) 4.2 g/dL 3.5-5.0 ALK PHOS (test code = 8160869459) 118 U/L 34-122 ALTv (test code = 1742-6) 34 U/L 5-35 AST(SGOT) (test code = 1174375098) 34 U/L 13-40 eGFR (test code = 20553-2) 108.1 mL/min/1.73m2 ZAINAB (test code = ZAINAB) Association of [...] or urine or abnormalities in imaging tests). [facility]. METABOLIC PANEL ([id number])2022-11-03 17:25:32* Test Item Value Reference Range Interpretation Comme nts NA (test code = 9214678054) 139 mmol/L 135-145 K (test code = 7493090504) 4.2 mmol/L 3.5-5.0 CL (test code = 7370734302) 105 mmol/L 98-108 CO2 TOTAL (test code = 8920249628) 26 mmol/L 23-31 AGAP (test code = 8457443611) 8 2-16 BUN (test code = 1264805671) 9 mg/dL 7-23 GLUCOSE (test code = 0807996578) 93 mg/dL 70-110 CREATININE (test code = 0929631282) 0.60 mg/dL 0.50-1.04 TOTAL BILI (test code = 2938374743) 0.2 mg/dL 0.1-1.1 CALCIUM (test code = 0954869491) 9.2 mg/dL 8.6-10.6 T PROTEIN (test code = 4497653690) 7.0 g/dL 6.3-8.2 ALBUMIN (test code = 7500448185) 4.2 g/dL 3.5-5.0 ALK PHOS (test code = 1691737381) 118 U/L 34-122 ALTv (test code = 1742-6) 34 U/L 5-35 AST(SGOT) (test code = 9878750325) 34 U/L 13-40 eGFR (test code = 20233-1) 108.1 mL/min/1.73m2 ZAINAB (test code = ZAINAB) Association of [...] or urine or abnormalities in imaging tests). [facility] ([id number][facility] 17:25:32* Test Item Value Reference Range Interpretation Comme nts NA (test code = 3197874317) 139 mmol/L 135-145 K (test code = 4927884952) 4.2 mmol/L 3.5-5.0 CL (test code = 6947840338) 105 mmol/L 98-108 CO2 TOTAL (test code = 2797608022) 26 mmol/L 23-31 AGAP (test code = 5584570019) 8 2-16 BUN (test code = 6831996033) 9 mg/dL 7-23 GLUCOSE (test code = 0606845970) 93 mg/dL 70-110 CREATININE (test code = 5264427442) 0.60 mg/dL 0.50-1.04 TOTAL BILI (test code = 2987750544) 0.2 mg/dL 0.1-1.1 CALCIUM (test code = 9903359091) 9.2 mg/dL 8.6-10.6 T PROTEIN (test code = 7907618352) 7.0 g/dL 6.3-8.2 ALBUMIN (test code = 7395217234) 4.2 g/dL 3.5-5.0 ALK PHOS (test code = 8528999686) 118 U/L 34-122 ALTv (test code = 1742-6) 34 U/L 5-35 AST(SGOT) (test code = 9515145513) 34 U/L 13-40 eGFR (test code = 64743-7) 108.1 mL/min/1.73m2 ZAINAB (test code = ZAINAB) Association of [...] or urine or abnormalities in imaging tests). [facility]. METABOLIC PANEL ([id number])2022-11-03 17:25:32* Test Item Value Reference Range Interpretation Comme nts NA (test code = 1895764965) 139 mmol/L 135-145 K (test code = 9065857057) 4.2 mmol/L 3.5-5.0 CL (test code = 3141542767) 105 mmol/L 98-108 CO2 TOTAL (test code = 2297194850) 26 mmol/L 23-31 AGAP (test code = 3414731212) 8 2-16 BUN (test code = 5485163787) 9 mg/dL 7-23 GLUCOSE (test code = 0909326084) 93 mg/dL 70-110 CREATININE (test code = 6520408357) 0.60 mg/dL 0.50-1.04 TOTAL BILI (test code = 5093241783) 0.2 mg/dL 0.1-1.1 CALCIUM (test code = 1011679772) 9.2 mg/dL 8.6-10.6 T PROTEIN (test code = 2050368202) 7.0 g/dL 6.3-8.2 ALBUMIN (test code = 3109079402) 4.2 g/dL 3.5-5.0 ALK PHOS (test code = 4682775142) 118 U/L 34-122 ALTv (test code = 1742-6) 34 U/L 5-35 AST(SGOT) (test code = 5574698483) 34 U/L 13-40 eGFR (test code = 91166-9) 108.1 mL/min/1.73m2 ZAINAB (test code = ZAINAB) Association of [...] or urine or abnormalities in imaging tests). [facility]. METABOLIC PANEL ([id number])2022-11-03 17:25:32* Test Item Value Reference Range Interpretation Comme nts NA (test code = 2308237258) 139 mmol/L 135-145 K (test code = 0621736325) 4.2 mmol/L 3.5-5.0 CL (test code = 0994887781) 105 mmol/L 98-108 CO2 TOTAL (test code = 3826384783) 26 mmol/L 23-31 AGAP (test code = 3512685396) 8 2-16 BUN (test code = 3171124457) 9 mg/dL 7-23 GLUCOSE (test code = 2915338874) 93 mg/dL 70-110 CREATININE (test code = 2230718151) 0.60 mg/dL 0.50-1.04 TOTAL BILI (test code = 4762386377) 0.2 mg/dL 0.1-1.1 CALCIUM (test code = 5140879697) 9.2 mg/dL 8.6-10.6 T PROTEIN (test code = 5324416555) 7.0 g/dL 6.3-8.2 ALBUMIN (test code = 7207171941) 4.2 g/dL 3.5-5.0 ALK PHOS (test code = 7297290575) 118 U/L 34-122 ALTv (test code = 1742-6) 34 U/L 5-35 AST(SGOT) (test code = 6895935562) 34 U/L 13-40 eGFR (test code = 42882-1) 108.1 mL/min/1.73m2 ZAINAB (test code = ZAINAB) Association of [...] or urine or abnormalities in imaging tests). [facility] WITH [id number] 17:18:52* Test Item Value Reference Range Interpretation Comme nts WBC (test code = 6690-2) 7.41 See_Comment [Automated [employer]] The system which generated this result transmitted reference range: 4.30 - 11.10 10*3/?L. The reference range was not used to interpret this result as normal/abnormal. RBC (test code = 789-8) 4.20 See_Comment [Automated [employer]] The system which generated this result transmitted reference range: 3.93 - 5.25 10*6/?L. The reference range was not used to interpret this result as normal/abnormal. HGB (test code = 718-7) 9.1 g/dL 11.6-15.0 L HCT (test code = 4544-3) 30.2 % 35.7-45.2 L MCV (test code = 787-2) 71.9 fL 80.6-95.5 L MCH (test code = 785-6) 21.7 pg 25.9-32.8 L MCHC (test code = 786-4) 30.1 g/dL 31.6-35.1 L RDW-SD (test code = 95692-6) 46.2 fL 39.0-49.9 RDW-CV (test code = 788-0) 17.9 % 12.0-15.5 H PLT (test code = 777-3) 304 See_Comment [Automated [employer]] The system which generated this result transmitted reference range: 166 - 358 10*3/?L. The reference range was not used to interpret this result as normal/abnormal. MPV (test code = 51541-8) 11.0 fL 9.5-12.9 NRBC/100 WBC (test code = 9948493603) 0.0 See_Comment [Automated [employer]] The system which generated this result transmitted reference range: 0.0 - 10.0 /100 WBCs. The reference range was not used to interpret this result as normal/abnormal. NRBC x10^3 (test code = 7485618007) See_Comment [Automated messa ge] The system which generated this result transmitted reference range: 10*3/?L. The reference range was not used to interpret this result as normal/abnormal. GRAN MAT (NEUT) % (test code = 770-8) 68.6 % IMM GRAN % (test code = 9450225238) 0.70 % LYMPH % (test code = 736-9) 19.8 % MONO % (test code = 5905-5) 5.3 % EOS % (test code = 713-8) 5.1 % BASO % (test code = 706-2) 0.5 % GRAN MAT x10^3(ANC) (test code = 5012134261) 5.08 10*3/uL 1.88-7.09 IMM GRAN x10^3 (test code = 5053458349) 0.05 10*3/uL 0.00-0.06 LYMPH x10^3 (test code = 731-0) 1.47 10*3/uL 1.32-3.29 MONO x10^3 (test code = 742-7) 0.39 10*3/uL 0.33-0.92 EOS x10^3 (test code = 711-2) 0.38 10*3/uL 0.03-0.39 BASO x10^3 (test code = 704-7) 0.04 10*3/uL 0.01-0.07 Lab Interpretation (test code = 83244-8) Abnormal [facility] WITH [id number] 17:18:52* Test Item Value Reference Range Interpretation Comme nts WBC (test code = 6690-2) 7.41 See_Comment [Automated messa ge] The system which generated this result transmitted reference range: 4.30 - 11.10 10*3/?L. The reference range was not used to interpret this result as normal/abnormal. RBC (test code = 789-8) 4.20 See_Comment [Automated messa ge] The system which generated this result transmitted reference range: 3.93 - 5.25 10*6/?L. The reference range was not used to interpret this result as normal/abnormal. HGB (test code = 718-7) 9.1 g/dL 11.6-15.0 L HCT (test code = 4544-3) 30.2 % 35.7-45.2 L MCV (test code = 787-2) 71.9 fL 80.6-95.5 L MCH (test code = 785-6) 21.7 pg 25.9-32.8 L MCHC (test code = 786-4) 30.1 g/dL 31.6-35.1 L RDW-SD (test code = 07542-0) 46.2 fL 39.0-49.9 RDW-CV (test code = 788-0) 17.9 % 12.0-15.5 H PLT (test code = 777-3) 304 See_Comment [Automated messa ge] The system which generated this result transmitted reference range: 166 - 358 10*3/?L. The reference range was not used to interpret this result as normal/abnormal. MPV (test code = 18095-0) 11.0 fL 9.5-12.9 NRBC/100 WBC (test code = 0034763387) 0.0 See_Comment [Automated [employer]] The system which generated this result transmitted reference range: 0.0 - 10.0 /100 WBCs. The reference range was not used to interpret this result as normal/abnormal. NRBC x10^3 (test code = 5408522873) See_Comment [Automated messa ge] The system which generated this result transmitted reference range: 10*3/?L. The reference range was not used to interpret this result as normal/abnormal. GRAN MAT (NEUT) % (test code = 770-8) 68.6 % IMM GRAN % (test code = 5903282360) 0.70 % LYMPH % (test code = 736-9) 19.8 % MONO % (test code = 5905-5) 5.3 % EOS % (test code = 713-8) 5.1 % BASO % (test code = 706-2) 0.5 % GRAN MAT x10^3(ANC) (test code = 1625446188) 5.08 10*3/uL 1.88-7.09 IMM GRAN x10^3 (test code = 7296260471) 0.05 10*3/uL 0.00-0.06 LYMPH x10^3 (test code = 731-0) 1.47 10*3/uL 1.32-3.29 MONO x10^3 (test code = 742-7) 0.39 10*3/uL 0.33-0.92 EOS x10^3 (test code = 711-2) 0.38 10*3/uL 0.03-0.39 BASO x10^3 (test code = 704-7) 0.04 10*3/uL 0.01-0.07 Lab Interpretation (test code = 58876-2) Abnormal [facility] WITH [id number] 17:18:52* Test Item Value Reference Range Interpretation Comme nts WBC (test code = 6690-2) 7.41 See_Comment [Automated [employer]] The system which generated this result transmitted reference range: 4.30 - 11.10 10*3/?L. The reference range was not used to interpret this result as normal/abnormal. RBC (test code = 789-8) 4.20 See_Comment [Automated [employer]] The system which generated this result transmitted reference range: 3.93 - 5.25 10*6/?L. The reference range was not used to interpret this result as normal/abnormal. HGB (test code = 718-7) 9.1 g/dL 11.6-15.0 L HCT (test code = 4544-3) 30.2 % 35.7-45.2 L MCV (test code = 787-2) 71.9 fL 80.6-95.5 L MCH (test code = 785-6) 21.7 pg 25.9-32.8 L MCHC (test code = 786-4) 30.1 g/dL 31.6-35.1 L RDW-SD (test code = 78074-6) 46.2 fL 39.0-49.9 RDW-CV (test code = 788-0) 17.9 % 12.0-15.5 H PLT (test code = 777-3) 304 See_Comment [Automated messa ge] The system which generated this result transmitted reference range: 166 - 358 10*3/?L. The reference range was not used to interpret this result as normal/abnormal. MPV (test code = 63200-6) 11.0 fL 9.5-12.9 NRBC/100 WBC (test code = 3373312400) 0.0 See_Comment [Automated me ssage] The system which generated this result transmitted reference range: 0.0 - 10.0 /100 WBCs. The reference range was not used to interpret this result as normal/abnormal. NRBC x10^3 (test code = 1200385259) See_Comment [Automated messa ge] The system which generated this result transmitted reference range: 10*3/?L. The reference range was not used to interpret this result as normal/abnormal. GRAN MAT (NEUT) % (test code = 770-8) 68.6 % IMM GRAN % (test code = 7317615364) 0.70 % LYMPH % (test code = 736-9) 19.8 % MONO % (test code = 5905-5) 5.3 % EOS % (test code = 713-8) 5.1 % BASO % (test code = 706-2) 0.5 % GRAN MAT x10^3(ANC) (test code = 9140125776) 5.08 10*3/uL 1.88-7.09 IMM GRAN x10^3 (test code = 0660611683) 0.05 10*3/uL 0.00-0.06 LYMPH x10^3 (test code = 731-0) 1.47 10*3/uL 1.32-3.29 MONO x10^3 (test code = 742-7) 0.39 10*3/uL 0.33-0.92 EOS x10^3 (test code = 711-2) 0.38 10*3/uL 0.03-0.39 BASO x10^3 (test code = 704-7) 0.04 10*3/uL 0.01-0.07 Lab Interpretation (test code = 71880-7) Abnormal [facility] WITH [id number] 17:18:52* Test Item Value Reference Range Interpretation Comme nts WBC (test code = 6690-2) 7.41 See_Comment [Automated messa ge] The system which generated this result transmitted reference range: 4.30 - 11.10 10*3/?L. The reference range was not used to interpret this result as normal/abnormal. RBC (test code = 789-8) 4.20 See_Comment [Automated messa ge] The system which generated this result transmitted reference range: 3.93 - 5.25 10*6/?L. The reference range was not used to interpret this result as normal/abnormal. HGB (test code = 718-7) 9.1 g/dL 11.6-15.0 L HCT (test code = 4544-3) 30.2 % 35.7-45.2 L MCV (test code = 787-2) 71.9 fL 80.6-95.5 L MCH (test code = 785-6) 21.7 pg 25.9-32.8 L MCHC (test code = 786-4) 30.1 g/dL 31.6-35.1 L RDW-SD (test code = 15087-5) 46.2 fL 39.0-49.9 RDW-CV (test code = 788-0) 17.9 % 12.0-15.5 H PLT (test code = 777-3) 304 See_Comment [Automated messa ge] The system which generated this result transmitted reference range: 166 - 358 10*3/?L. The reference range was not used to interpret this result as normal/abnormal. MPV (test code = 38625-5) 11.0 fL 9.5-12.9 NRBC/100 WBC (test code = 6376638160) 0.0 See_Comment [Automated [employer]] The system which generated this result transmitted reference range: 0.0 - 10.0 /100 WBCs. The reference range was not used to interpret this result as normal/abnormal. NRBC x10^3 (test code = 0050029497) See_Comment [Automated [employer]] The system which generated this result transmitted reference range: 10*3/?L. The reference range was not used to interpret this result as normal/abnormal. GRAN MAT (NEUT) % (test code = 770-8) 68.6 % IMM GRAN % (test code = 9610180191) 0.70 % LYMPH % (test code = 736-9) 19.8 % MONO % (test code = 5905-5) 5.3 % EOS % (test code = 713-8) 5.1 % BASO % (test code = 706-2) 0.5 % GRAN MAT x10^3(ANC) (test code = 9770995062) 5.08 10*3/uL 1.88-7.09 IMM GRAN x10^3 (test code = 6039097361) 0.05 10*3/uL 0.00-0.06 LYMPH x10^3 (test code = 731-0) 1.47 10*3/uL 1.32-3.29 MONO x10^3 (test code = 742-7) 0.39 10*3/uL 0.33-0.92 EOS x10^3 (test code = 711-2) 0.38 10*3/uL 0.03-0.39 BASO x10^3 (test code = 704-7) 0.04 10*3/uL 0.01-0.07 Lab Interpretation (test code = 81011-5) Abnormal [facility] WITH [id number] 17:18:52* Test Item Value Reference Range Interpretation Comme nts WBC (test code = 6690-2) 7.41 See_Comment [Automated [employer]] The system which generated this result transmitted reference range: 4.30 - 11.10 10*3/?L. The reference range was not used to interpret this result as normal/abnormal. RBC (test code = 789-8) 4.20 See_Comment [Automated [employer]] The system which generated this result transmitted reference range: 3.93 - 5.25 10*6/?L. The reference range was not used to interpret this result as normal/abnormal. HGB (test code = 718-7) 9.1 g/dL 11.6-15.0 L HCT (test code = 4544-3) 30.2 % 35.7-45.2 L MCV (test code = 787-2) 71.9 fL 80.6-95.5 L MCH (test code = 785-6) 21.7 pg 25.9-32.8 L MCHC (test code = 786-4) 30.1 g/dL 31.6-35.1 L RDW-SD (test code = 40187-2) 46.2 fL 39.0-49.9 RDW-CV (test code = 788-0) 17.9 % 12.0-15.5 H PLT (test code = 777-3) 304 See_Comment [Automated [employer]] The system which generated this result transmitted reference range: 166 - 358 10*3/?L. The reference range was not used to interpret this result as normal/abnormal. MPV (test code = 93634-2) 11.0 fL 9.5-12.9 NRBC/100 WBC (test code = 6580696336) 0.0 See_Comment [Automated [employer]] The system which generated this result transmitted reference range: 0.0 - 10.0 /100 WBCs. The reference range was not used to interpret this result as normal/abnormal. NRBC x10^3 (test code = 1877916713) See_Comment [Automated [employer]] The system which generated this result transmitted reference range: 10*3/?L. The reference range was not used to interpret this result as normal/abnormal. GRAN MAT (NEUT) % (test code = 770-8) 68.6 % IMM GRAN % (test code = 5942915939) 0.70 % LYMPH % (test code = 736-9) 19.8 % MONO % (test code = 5905-5) 5.3 % EOS % (test code = 713-8) 5.1 % BASO % (test code = 706-2) 0.5 % GRAN MAT x10^3(ANC) (test code = 4540705260) 5.08 10*3/uL 1.88-7.09 IMM GRAN x10^3 (test code = 0929269357) 0.05 10*3/uL 0.00-0.06 LYMPH x10^3 (test code = 731-0) 1.47 10*3/uL 1.32-3.29 MONO x10^3 (test code = 742-7) 0.39 10*3/uL 0.33-0.92 EOS x10^3 (test code = 711-2) 0.38 10*3/uL 0.03-0.39 BASO x10^3 (test code = 704-7) 0.04 10*3/uL 0.01-0.07 Lab Interpretation (test code = 28518-3) Abnormal [facility] WITH [id number] 17:18:52* Test Item Value Reference Range Interpretation Comme nts WBC (test code = 6690-2) 7.41 See_Comment [Automated [employer]] The system which generated this result transmitted reference range: 4.30 - 11.10 10*3/?L. The reference range was not used to interpret this result as normal/abnormal. RBC (test code = 789-8) 4.20 See_Comment [Automated [employer]] The system which generated this result transmitted reference range: 3.93 - 5.25 10*6/?L. The reference range was not used to interpret this result as normal/abnormal. HGB (test code = 718-7) 9.1 g/dL 11.6-15.0 L HCT (test code = 4544-3) 30.2 % 35.7-45.2 L MCV (test code = 787-2) 71.9 fL 80.6-95.5 L MCH (test code = 785-6) 21.7 pg 25.9-32.8 L MCHC (test code = 786-4) 30.1 g/dL 31.6-35.1 L RDW-SD (test code = 54901-9) 46.2 fL 39.0-49.9 RDW-CV (test code = 788-0) 17.9 % 12.0-15.5 H PLT (test code = 777-3) 304 See_Comment [Automated [employer] ge] The system which generated this result transmitted reference range: 166 - 358 10*3/?L. The reference range was not used to interpret this result as normal/abnormal. MPV (test code = 56377-4) 11.0 fL 9.5-12.9 NRBC/100 WBC (test code = 7511995977) 0.0 See_Comment [Automated [employer]] The system which generated this result transmitted reference range: 0.0 - 10.0 /100 WBCs. The reference range was not used to interpret this result as normal/abnormal. NRBC x10^3 (test code = 7453861488) See_Comment [Automated messa ge] The system which generated this result transmitted reference range: 10*3/?L. The reference range was not used to interpret this result as normal/abnormal. GRAN MAT (NEUT) % (test code = 770-8) 68.6 % IMM GRAN % (test code = 7989823737) 0.70 % LYMPH % (test code = 736-9) 19.8 % MONO % (test code = 5905-5) 5.3 % EOS % (test code = 713-8) 5.1 % BASO % (test code = 706-2) 0.5 % GRAN MAT x10^3(ANC) (test code = 1930416674) 5.08 10*3/uL 1.88-7.09 IMM GRAN x10^3 (test code = 6617502433) 0.05 10*3/uL 0.00-0.06 LYMPH x10^3 (test code = 731-0) 1.47 10*3/uL 1.32-3.29 MONO x10^3 (test code = 742-7) 0.39 10*3/uL 0.33-0.92 EOS x10^3 (test code = 711-2) 0.38 10*3/uL 0.03-0.39 BASO x10^3 (test code = 704-7) 0.04 10*3/uL 0.01-0.07 Lab Interpretation (test code = 57983-7) Abnormal [facility] WITH [id number] 17:18:52* Test Item Value Reference Range Interpretation Comme nts WBC (test code = 6690-2) 7.41 See_Comment [Automated messa ge] The system which generated this result transmitted reference range: 4.30 - 11.10 10*3/?L. The reference range was not used to interpret this result as normal/abnormal. RBC (test code = 789-8) 4.20 See_Comment [Automated messa ge] The system which generated this result transmitted reference range: 3.93 - 5.25 10*6/?L. The reference range was not used to interpret this result as normal/abnormal. HGB (test code = 718-7) 9.1 g/dL 11.6-15.0 L HCT (test code = 4544-3) 30.2 % 35.7-45.2 L MCV (test code = 787-2) 71.9 fL 80.6-95.5 L MCH (test code = 785-6) 21.7 pg 25.9-32.8 L MCHC (test code = 786-4) 30.1 g/dL 31.6-35.1 L RDW-SD (test code = 43448-6) 46.2 fL 39.0-49.9 RDW-CV (test code = 788-0) 17.9 % 12.0-15.5 H PLT (test code = 777-3) 304 See_Comment [Automated messa ge] The system which generated this result transmitted reference range: 166 - 358 10*3/?L. The reference range was not used to interpret this result as normal/abnormal. MPV (test code = 62222-3) 11.0 fL 9.5-12.9 NRBC/100 WBC (test code = 4828140083) 0.0 See_Comment [Automated [employer]] The system which generated this result transmitted reference range: 0.0 - 10.0 /100 WBCs. The reference range was not used to interpret this result as normal/abnormal. NRBC x10^3 (test code = 6461140783) See_Comment [Automated messa ge] The system which generated this result transmitted reference range: 10*3/?L. The reference range was not used to interpret this result as normal/abnormal. GRAN MAT (NEUT) % (test code = 770-8) 68.6 % IMM GRAN % (test code = 1503538233) 0.70 % LYMPH % (test code = 736-9) 19.8 % MONO % (test code = 5905-5) 5.3 % EOS % (test code = 713-8) 5.1 % BASO % (test code = 706-2) 0.5 % GRAN MAT x10^3(ANC) (test code = 2563063165) 5.08 10*3/uL 1.88-7.09 IMM GRAN x10^3 (test code = 0453939030) 0.05 10*3/uL 0.00-0.06 LYMPH x10^3 (test code = 731-0) 1.47 10*3/uL 1.32-3.29 MONO x10^3 (test code = 742-7) 0.39 10*3/uL 0.33-0.92 EOS x10^3 (test code = 711-2) 0.38 10*3/uL 0.03-0.39 BASO x10^3 (test code = 704-7) 0.04 10*3/uL 0.01-0.07 Lab Interpretation (test code = 78924-5) Abnormal [facility] WITH [id number] 17:18:52* Test Item Value Reference Range Interpretation Comme nts WBC (test code = 6690-2) 7.41 See_Comment [Automated messa ge] The system which generated this result transmitted reference range: 4.30 - 11.10 10*3/?L. The reference range was not used to interpret this result as normal/abnormal. RBC (test code = 789-8) 4.20 See_Comment [Automated messa ge] The system which generated this result transmitted reference range: 3.93 - 5.25 10*6/?L. The reference range was not used to interpret this result as normal/abnormal. HGB (test code = 718-7) 9.1 g/dL 11.6-15.0 L HCT (test code = 4544-3) 30.2 % 35.7-45.2 L MCV (test code = 787-2) 71.9 fL 80.6-95.5 L MCH (test code = 785-6) 21.7 pg 25.9-32.8 L MCHC (test code = 786-4) 30.1 g/dL 31.6-35.1 L RDW-SD (test code = 84081-7) 46.2 fL 39.0-49.9 RDW-CV (test code = 788-0) 17.9 % 12.0-15.5 H PLT (test code = 777-3) 304 See_Comment [Automated [employer] ge] The system which generated this result transmitted reference range: 166 - 358 10*3/?L. The reference range was not used to interpret this result as normal/abnormal. MPV (test code = 95232-4) 11.0 fL 9.5-12.9 NRBC/100 WBC (test code = 0918843621) 0.0 See_Comment [Automated [employer]] The system which generated this result transmitted reference range: 0.0 - 10.0 /100 WBCs. The reference range was not used to interpret this result as normal/abnormal. NRBC x10^3 (test code = 7110902847) See_Comment [Automated [employer] ge] The system which generated this result transmitted reference range: 10*3/?L. The reference range was not used to interpret this result as normal/abnormal. GRAN MAT (NEUT) % (test code = 770-8) 68.6 % IMM GRAN % (test code = 5014549812) 0.70 % LYMPH % (test code = 736-9) 19.8 % MONO % (test code = 5905-5) 5.3 % EOS % (test code = 713-8) 5.1 % BASO % (test code = 706-2) 0.5 % GRAN MAT x10^3(ANC) (test code = 6948679461) 5.08 10*3/uL 1.88-7.09 IMM GRAN x10^3 (test code = 7839055857) 0.05 10*3/uL 0.00-0.06 LYMPH x10^3 (test code = 731-0) 1.47 10*3/uL 1.32-3.29 MONO x10^3 (test code = 742-7) 0.39 10*3/uL 0.33-0.92 EOS x10^3 (test code = 711-2) 0.38 10*3/uL 0.03-0.39 BASO x10^3 (test code = 704-7) 0.04 10*3/uL 0.01-0.07 Lab Interpretation (test code = 35886-8) Abnormal [facility] WITH [id number] 17:18:52* Test Item Value Reference Range Interpretation Comme nts WBC (test code = 6690-2) 7.41 See_Comment [Automated messa ge] The system which generated this result transmitted reference range: 4.30 - 11.10 10*3/?L. The reference range was not used to interpret this result as normal/abnormal. RBC (test code = 789-8) 4.20 See_Comment [Automated messa ge] The system which generated this result transmitted reference range: 3.93 - 5.25 10*6/?L. The reference range was not used to interpret this result as normal/abnormal. HGB (test code = 718-7) 9.1 g/dL 11.6-15.0 L HCT (test code = 4544-3) 30.2 % 35.7-45.2 L MCV (test code = 787-2) 71.9 fL 80.6-95.5 L MCH (test code = 785-6) 21.7 pg 25.9-32.8 L MCHC (test code = 786-4) 30.1 g/dL 31.6-35.1 L RDW-SD (test code = 92933-1) 46.2 fL 39.0-49.9 RDW-CV (test code = 788-0) 17.9 % 12.0-15.5 H PLT (test code = 777-3) 304 See_Comment [Automated messa ge] The system which generated this result transmitted reference range: 166 - 358 10*3/?L. The reference range was not used to interpret this result as normal/abnormal. MPV (test code = 65977-4) 11.0 fL 9.5-12.9 NRBC/100 WBC (test code = 6214689686) 0.0 See_Comment [Automated [employer]] The system which generated this result transmitted reference range: 0.0 - 10.0 /100 WBCs. The reference range was not used to interpret this result as normal/abnormal. NRBC x10^3 (test code = 8168570756) See_Comment [Automated messa ge] The system which generated this result transmitted reference range: 10*3/?L. The reference range was not used to interpret this result as normal/abnormal. GRAN MAT (NEUT) % (test code = 770-8) 68.6 % IMM GRAN % (test code = 9402870510) 0.70 % LYMPH % (test code = 736-9) 19.8 % MONO % (test code = 5905-5) 5.3 % EOS % (test code = 713-8) 5.1 % BASO % (test code = 706-2) 0.5 % GRAN MAT x10^3(ANC) (test code = 0230696572) 5.08 10*3/uL 1.88-7.09 IMM GRAN x10^3 (test code = 0653187183) 0.05 10*3/uL 0.00-0.06 LYMPH x10^3 (test code = 731-0) 1.47 10*3/uL 1.32-3.29 MONO x10^3 (test code = 742-7) 0.39 10*3/uL 0.33-0.92 EOS x10^3 (test code = 711-2) 0.38 10*3/uL 0.03-0.39 BASO x10^3 (test code = 704-7) 0.04 10*3/uL 0.01-0.07 Lab Interpretation (test code = 08918-2) Abnormal [facility] WITH [id number] 17:18:52* Test Item Value Reference Range Interpretation Comme nts WBC (test code = 6690-2) 7.41 See_Comment [Automated [employer] ge] The system which generated this result transmitted reference range: 4.30 - 11.10 10*3/?L. The reference range was not used to interpret this result as normal/abnormal. RBC (test code = 789-8) 4.20 See_Comment [Automated [employer] ge] The system which generated this result transmitted reference range: 3.93 - 5.25 10*6/?L. The reference range was not used to interpret this result as normal/abnormal. HGB (test code = 718-7) 9.1 g/dL 11.6-15.0 L HCT (test code = 4544-3) 30.2 % 35.7-45.2 L MCV (test code = 787-2) 71.9 fL 80.6-95.5 L MCH (test code = 785-6) 21.7 pg 25.9-32.8 L MCHC (test code = 786-4) 30.1 g/dL 31.6-35.1 L RDW-SD (test code = 47945-9) 46.2 fL 39.0-49.9 RDW-CV (test code = 788-0) 17.9 % 12.0-15.5 H PLT (test code = 777-3) 304 See_Comment [Automated messa ge] The system which generated this result transmitted reference range: 166 - 358 10*3/?L. The reference range was not used to interpret this result as normal/abnormal. MPV (test code = 79805-6) 11.0 fL 9.5-12.9 NRBC/100 WBC (test code = 6696513628) 0.0 See_Comment [Automated [employer]] The system which generated this result transmitted reference range: 0.0 - 10.0 /100 WBCs. The reference range was not used to interpret this result as normal/abnormal. NRBC x10^3 (test code = 5824370462) See_Comment [Automated [employer] ge] The system which generated this result transmitted reference range: 10*3/?L. The reference range was not used to interpret this result as normal/abnormal. GRAN MAT (NEUT) % (test code = 770-8) 68.6 % IMM GRAN % (test code = 8824894089) 0.70 % LYMPH % (test code = 736-9) 19.8 % MONO % (test code = 5905-5) 5.3 % EOS % (test code = 713-8) 5.1 % BASO % (test code = 706-2) 0.5 % GRAN MAT x10^3(ANC) (test code = 5527776596) 5.08 10*3/uL 1.88-7.09 IMM GRAN x10^3 (test code = 1729082816) 0.05 10*3/uL 0.00-0.06 LYMPH x10^3 (test code = 731-0) 1.47 10*3/uL 1.32-3.29 MONO x10^3 (test code = 742-7) 0.39 10*3/uL 0.33-0.92 EOS x10^3 (test code = 711-2) 0.38 10*3/uL 0.03-0.39 BASO x10^3 (test code = 704-7) 0.04 10*3/uL 0.01-0.07 Lab Interpretation (test code = 81946-5) Abnormal [facility] WITH [id number] 17:18:52* Test Item Value Reference Range Interpretation Comme nts WBC (test code = 6690-2) 7.41 See_Comment [Automated [employer] ge] The system which generated this result transmitted reference range: 4.30 - 11.10 10*3/?L. The reference range was not used to interpret this result as normal/abnormal. RBC (test code = 789-8) 4.20 See_Comment [Automated [employer]] The system which generated this result transmitted reference range: 3.93 - 5.25 10*6/?L. The reference range was not used to interpret this result as normal/abnormal. HGB (test code = 718-7) 9.1 g/dL 11.6-15.0 L HCT (test code = 4544-3) 30.2 % 35.7-45.2 L MCV (test code = 787-2) 71.9 fL 80.6-95.5 L MCH (test code = 785-6) 21.7 pg 25.9-32.8 L MCHC (test code = 786-4) 30.1 g/dL 31.6-35.1 L RDW-SD (test code = 72521-0) 46.2 fL 39.0-49.9 RDW-CV (test code = 788-0) 17.9 % 12.0-15.5 H PLT (test code = 777-3) 304 See_Comment [Automated [employer] ge] The system which generated this result transmitted reference range: 166 - 358 10*3/?L. The reference range was not used to interpret this result as normal/abnormal. MPV (test code = 66840-2) 11.0 fL 9.5-12.9 NRBC/100 WBC (test code = 7109675124) 0.0 See_Comment [Automated me ssage] The system which generated this result transmitted reference range: 0.0 - 10.0 /100 WBCs. The reference range was not used to interpret this result as normal/abnormal. NRBC x10^3 (test code = 3294281424) See_Comment [Automated messa ge] The system which generated this result transmitted reference range: 10*3/?L. The reference range was not used to interpret this result as normal/abnormal. GRAN MAT (NEUT) % (test code = 770-8) 68.6 % IMM GRAN % (test code = 8923504989) 0.70 % LYMPH % (test code = 736-9) 19.8 % MONO % (test code = 5905-5) 5.3 % EOS % (test code = 713-8) 5.1 % BASO % (test code = 706-2) 0.5 % GRAN MAT x10^3(ANC) (test code = 6135149558) 5.08 10*3/uL 1.88-7.09 IMM GRAN x10^3 (test code = 5143300993) 0.05 10*3/uL 0.00-0.06 LYMPH x10^3 (test code = 731-0) 1.47 10*3/uL 1.32-3.29 MONO x10^3 (test code = 742-7) 0.39 10*3/uL 0.33-0.92 EOS x10^3 (test code = 711-2) 0.38 10*3/uL 0.03-0.39 BASO x10^3 (test code = 704-7) 0.04 10*3/uL 0.01-0.07 Lab Interpretation (test code = 78195-7) Abnormal [facility] WITH [id number] 17:18:52* Test Item Value Reference Range Interpretation Comme nts WBC (test code = 6690-2) 7.41 See_Comment [Automated messa ge] The system which generated this result transmitted reference range: 4.30 - 11.10 10*3/?L. The reference range was not used to interpret this result as normal/abnormal. RBC (test code = 789-8) 4.20 See_Comment [Automated messa ge] The system which generated this result transmitted reference range: 3.93 - 5.25 10*6/?L. The reference range was not used to interpret this result as normal/abnormal. HGB (test code = 718-7) 9.1 g/dL 11.6-15.0 L HCT (test code = 4544-3) 30.2 % 35.7-45.2 L MCV (test code = 787-2) 71.9 fL 80.6-95.5 L MCH (test code = 785-6) 21.7 pg 25.9-32.8 L MCHC (test code = 786-4) 30.1 g/dL 31.6-35.1 L RDW-SD (test code = 78825-2) 46.2 fL 39.0-49.9 RDW-CV (test code = 788-0) 17.9 % 12.0-15.5 H PLT (test code = 777-3) 304 See_Comment [Automated [employer]] The system which generated this result transmitted reference range: 166 - 358 10*3/?L. The reference range was not used to interpret this result as normal/abnormal. MPV (test code = 66482-9) 11.0 fL 9.5-12.9 NRBC/100 WBC (test code = 1580138130) 0.0 See_Comment [Automated [employer]] The system which generated this result transmitted reference range: 0.0 - 10.0 /100 WBCs. The reference range was not used to interpret this result as normal/abnormal. NRBC x10^3 (test code = 7393070124) See_Comment [Automated [employer]] The system which generated this result transmitted reference range: 10*3/?L. The reference range was not used to interpret this result as normal/abnormal. GRAN MAT (NEUT) % (test code = 770-8) 68.6 % IMM GRAN % (test code = 6597721005) 0.70 % LYMPH % (test code = 736-9) 19.8 % MONO % (test code = 5905-5) 5.3 % EOS % (test code = 713-8) 5.1 % BASO % (test code = 706-2) 0.5 % GRAN MAT x10^3(ANC) (test code = 6955869193) 5.08 10*3/uL 1.88-7.09 IMM GRAN x10^3 (test code = 9510334769) 0.05 10*3/uL 0.00-0.06 LYMPH x10^3 (test code = 731-0) 1.47 10*3/uL 1.32-3.29 MONO x10^3 (test code = 742-7) 0.39 10*3/uL 0.33-0.92 EOS x10^3 (test code = 711-2) 0.38 10*3/uL 0.03-0.39 BASO x10^3 (test code = 704-7) 0.04 10*3/uL 0.01-0.07 Lab Interpretation (test code = 72578-5) Abnormal [facility] WITH [id number] 17:18:52* Test Item Value Reference Range Interpretation Comme nts WBC (test code = 6690-2) 7.41 See_Comment [Automated [employer]] The system which generated this result transmitted reference range: 4.30 - 11.10 10*3/?L. The reference range was not used to interpret this result as normal/abnormal. RBC (test code = 789-8) 4.20 See_Comment [Automated [employer]] The system which generated this result transmitted reference range: 3.93 - 5.25 10*6/?L. The reference range was not used to interpret this result as normal/abnormal. HGB (test code = 718-7) 9.1 g/dL 11.6-15.0 L HCT (test code = 4544-3) 30.2 % 35.7-45.2 L MCV (test code = 787-2) 71.9 fL 80.6-95.5 L MCH (test code = 785-6) 21.7 pg 25.9-32.8 L MCHC (test code = 786-4) 30.1 g/dL 31.6-35.1 L RDW-SD (test code = 71904-1) 46.2 fL 39.0-49.9 RDW-CV (test code = 788-0) 17.9 % 12.0-15.5 H PLT (test code = 777-3) 304 See_Comment [Automated messa ge] The system which generated this result transmitted reference range: 166 - 358 10*3/?L. The reference range was not used to interpret this result as normal/abnormal. MPV (test code = 22048-1) 11.0 fL 9.5-12.9 NRBC/100 WBC (test code = 4102212816) 0.0 See_Comment [Automated me ssage] The system which generated this result transmitted reference range: 0.0 - 10.0 /100 WBCs. The reference range was not used to interpret this result as normal/abnormal. NRBC x10^3 (test code = 5647619217) See_Comment [Automated messa ge] The system which generated this result transmitted reference range: 10*3/?L. The reference range was not used to interpret this result as normal/abnormal. GRAN MAT (NEUT) % (test code = 770-8) 68.6 % IMM GRAN % (test code = 5063780688) 0.70 % LYMPH % (test code = 736-9) 19.8 % MONO % (test code = 5905-5) 5.3 % EOS % (test code = 713-8) 5.1 % BASO % (test code = 706-2) 0.5 % GRAN MAT x10^3(ANC) (test code = 5594264396) 5.08 10*3/uL 1.88-7.09 IMM GRAN x10^3 (test code = 1779316023) 0.05 10*3/uL 0.00-0.06 LYMPH x10^3 (test code = 731-0) 1.47 10*3/uL 1.32-3.29 MONO x10^3 (test code = 742-7) 0.39 10*3/uL 0.33-0.92 EOS x10^3 (test code = 711-2) 0.38 10*3/uL 0.03-0.39 BASO x10^3 (test code = 704-7) 0.04 10*3/uL 0.01-0.07 Lab Interpretation (test code = 27870-0) Abnormal [facility] WITH [id number] 17:18:52* Test Item Value Reference Range Interpretation Comme nts WBC (test code = 6690-2) 7.41 See_Comment [Automated messa ge] The system which generated this result transmitted reference range: 4.30 - 11.10 10*3/?L. The reference range was not used to interpret this result as normal/abnormal. RBC (test code = 789-8) 4.20 See_Comment [Automated messa ge] The system which generated this result transmitted reference range: 3.93 - 5.25 10*6/?L. The reference range was not used to interpret this result as normal/abnormal. HGB (test code = 718-7) 9.1 g/dL 11.6-15.0 L HCT (test code = 4544-3) 30.2 % 35.7-45.2 L MCV (test code = 787-2) 71.9 fL 80.6-95.5 L MCH (test code = 785-6) 21.7 pg 25.9-32.8 L MCHC (test code = 786-4) 30.1 g/dL 31.6-35.1 L RDW-SD (test code = 57611-9) 46.2 fL 39.0-49.9 RDW-CV (test code = 788-0) 17.9 % 12.0-15.5 H PLT (test code = 777-3) 304 See_Comment [Automated messa ge] The system which generated this result transmitted reference range: 166 - 358 10*3/?L. The reference range was not used to interpret this result as normal/abnormal. MPV (test code = 54309-0) 11.0 fL 9.5-12.9 NRBC/100 WBC (test code = 2958802484) 0.0 See_Comment [Automated [employer]] The system which generated this result transmitted reference range: 0.0 - 10.0 /100 WBCs. The reference range was not used to interpret this result as normal/abnormal. NRBC x10^3 (test code = 8151213489) See_Comment [Automated messa ge] The system which generated this result transmitted reference range: 10*3/?L. The reference range was not used to interpret this result as normal/abnormal. GRAN MAT (NEUT) % (test code = 770-8) 68.6 % IMM GRAN % (test code = 7730513335) 0.70 % LYMPH % (test code = 736-9) 19.8 % MONO % (test code = 5905-5) 5.3 % EOS % (test code = 713-8) 5.1 % BASO % (test code = 706-2) 0.5 % GRAN MAT x10^3(ANC) (test code = 3440250972) 5.08 10*3/uL 1.88-7.09 IMM GRAN x10^3 (test code = 3252482719) 0.05 10*3/uL 0.00-0.06 LYMPH x10^3 (test code = 731-0) 1.47 10*3/uL 1.32-3.29 MONO x10^3 (test code = 742-7) 0.39 10*3/uL 0.33-0.92 EOS x10^3 (test code = 711-2) 0.38 10*3/uL 0.03-0.39 BASO x10^3 (test code = 704-7) 0.04 10*3/uL 0.01-0.07 Lab Interpretation (test code = 44644-4) Abnormal [facility] WITH [id number] 17:18:52* Test Item Value Reference Range Interpretation Comme nts WBC (test code = 6690-2) 7.41 See_Comment [Automated [employer]] The system which generated this result transmitted reference range: 4.30 - 11.10 10*3/?L. The reference range was not used to interpret this result as normal/abnormal. RBC (test code = 789-8) 4.20 See_Comment [Automated messa ge] The system which generated this result transmitted reference range: 3.93 - 5.25 10*6/?L. The reference range was not used to interpret this result as normal/abnormal. HGB (test code = 718-7) 9.1 g/dL 11.6-15.0 L HCT (test code = 4544-3) 30.2 % 35.7-45.2 L MCV (test code = 787-2) 71.9 fL 80.6-95.5 L MCH (test code = 785-6) 21.7 pg 25.9-32.8 L MCHC (test code = 786-4) 30.1 g/dL 31.6-35.1 L RDW-SD (test code = 21008-1) 46.2 fL 39.0-49.9 RDW-CV (test code = 788-0) 17.9 % 12.0-15.5 H PLT (test code = 777-3) 304 See_Comment [Automated messa ge] The system which generated this result transmitted reference range: 166 - 358 10*3/?L. The reference range was not used to interpret this result as normal/abnormal. MPV (test code = 52006-6) 11.0 fL 9.5-12.9 NRBC/100 WBC (test code = 7611257602) 0.0 See_Comment [Automated [employer]] The system which generated this result transmitted reference range: 0.0 - 10.0 /100 WBCs. The reference range was not used to interpret this result as normal/abnormal. NRBC x10^3 (test code = 3300035940) See_Comment [Automated [employer]] The system which generated this result transmitted reference range: 10*3/?L. The reference range was not used to interpret this result as normal/abnormal. GRAN MAT (NEUT) % (test code = 770-8) 68.6 % IMM GRAN % (test code = 7736540324) 0.70 % LYMPH % (test code = 736-9) 19.8 % MONO % (test code = 5905-5) 5.3 % EOS % (test code = 713-8) 5.1 % BASO % (test code = 706-2) 0.5 % GRAN MAT x10^3(ANC) (test code = 5410373384) 5.08 10*3/uL 1.88-7.09 IMM GRAN x10^3 (test code = 2363676790) 0.05 10*3/uL 0.00-0.06 LYMPH x10^3 (test code = 731-0) 1.47 10*3/uL 1.32-3.29 MONO x10^3 (test code = 742-7) 0.39 10*3/uL 0.33-0.92 EOS x10^3 (test code = 711-2) 0.38 10*3/uL 0.03-0.39 BASO x10^3 (test code = 704-7) 0.04 10*3/uL 0.01-0.07 Lab Interpretation (test code = 69962-0) Abnormal [facility] WITH [id number] 17:18:52* Test Item Value Reference Range Interpretation Comme nts WBC (test code = 6690-2) 7.41 See_Comment [Automated messa ge] The system which generated this result transmitted reference range: 4.30 - 11.10 10*3/?L. The reference range was not used to interpret this result as normal/abnormal. RBC (test code = 789-8) 4.20 See_Comment [Automated messa ge] The system which generated this result transmitted reference range: 3.93 - 5.25 10*6/?L. The reference range was not used to interpret this result as normal/abnormal. HGB (test code = 718-7) 9.1 g/dL 11.6-15.0 L HCT (test code = 4544-3) 30.2 % 35.7-45.2 L MCV (test code = 787-2) 71.9 fL 80.6-95.5 L MCH (test code = 785-6) 21.7 pg 25.9-32.8 L MCHC (test code = 786-4) 30.1 g/dL 31.6-35.1 L RDW-SD (test code = 07897-1) 46.2 fL 39.0-49.9 RDW-CV (test code = 788-0) 17.9 % 12.0-15.5 H PLT (test code = 777-3) 304 See_Comment [Automated messa ge] The system which generated this result transmitted reference range: 166 - 358 10*3/?L. The reference range was not used to interpret this result as normal/abnormal. MPV (test code = 83911-9) 11.0 fL 9.5-12.9 NRBC/100 WBC (test code = 8092181817) 0.0 See_Comment [Automated [employer] ssage] The system which generated this result transmitted reference range: 0.0 - 10.0 /100 WBCs. The reference range was not used to interpret this result as normal/abnormal. NRBC x10^3 (test code = [id number]) See_Comment [Automated messa ge] The system which generated this result transmitted reference range: 10*3/?L. The reference range was not used to interpret this result as normal/abnormal. GRAN MAT (NEUT) % (test code = 770-8) 68.6 % IMM GRAN % (test code = 5042046366) 0.70 % LYMPH % (test code = 736-9) 19.8 % MONO % (test code = 5905-5) 5.3 % EOS % (test code = 713-8) 5.1 % BASO % (test code = 706-2) 0.5 % GRAN MAT x10^3(ANC) (test code = 9316410587) 5.08 10*3/uL 1.88-7.09 IMM GRAN x10^3 (test code = 0035326583) 0.05 10*3/uL 0.00-0.06 LYMPH x10^3 (test code = 731-0) 1.47 10*3/uL 1.32-3.29 MONO x10^3 (test code = 742-7) 0.39 10*3/uL 0.33-0.92 EOS x10^3 (test code = 711-2) 0.38 10*3/uL 0.03-0.39 BASO x10^3 (test code = 704-7) 0.04 10*3/uL 0.01-0.07 Lab Interpretation (test code = 05823-4) Abnormal [facility] WITH [id number] 17:18:52* Test Item Value Reference Range Interpretation Comme nts WBC (test code = 6690-2) 7.41 See_Comment [Automated messa ge] The system which generated this result transmitted reference range: 4.30 - 11.10 10*3/?L. The reference range was not used to interpret this result as normal/abnormal. RBC (test code = 789-8) 4.20 See_Comment [Automated messa ge] The system which generated this result transmitted reference range: 3.93 - 5.25 10*6/?L. The reference range was not used to interpret this result as normal/abnormal. HGB (test code = 718-7) 9.1 g/dL 11.6-15.0 L HCT (test code = 4544-3) 30.2 % 35.7-45.2 L MCV (test code = 787-2) 71.9 fL 80.6-95.5 L MCH (test code = 785-6) 21.7 pg 25.9-32.8 L MCHC (test code = 786-4) 30.1 g/dL 31.6-35.1 L RDW-SD (test code = 86274-3) 46.2 fL 39.0-49.9 RDW-CV (test code = 788-0) 17.9 % 12.0-15.5 H PLT (test code = 777-3) 304 See_Comment [Automated messa ge] The system which generated this result transmitted reference range: 166 - 358 10*3/?L. The reference range was not used to interpret this result as normal/abnormal. MPV (test code = 49768-7) 11.0 fL 9.5-12.9 NRBC/100 WBC (test code = 8488722636) 0.0 See_Comment [Automated Arg[employer] ssage] The system which generated this result transmitted reference range: 0.0 - 10.0 /100 WBCs. The reference range was not used to interpret this result as normal/abnormal. NRBC x10^3 (test code = 9205149674) See_Comment [Automated messa ge] The system which generated this result transmitted reference range: 10*3/?L. The reference range was not used to interpret this result as normal/abnormal. GRAN MAT (NEUT) % (test code = 770-8) 68.6 % IMM GRAN % (test code = 9908368756) 0.70 % LYMPH % (test code = 736-9) 19.8 % MONO % (test code = 5905-5) 5.3 % EOS % (test code = 713-8) 5.1 % BASO % (test code = 706-2) 0.5 % GRAN MAT x10^3(ANC) (test code = 2200132191) 5.08 10*3/uL 1.88-7.09 IMM GRAN x10^3 (test code = 7978723287) 0.05 10*3/uL 0.00-0.06 LYMPH x10^3 (test code = 731-0) 1.47 10*3/uL 1.32-3.29 MONO x10^3 (test code = 742-7) 0.39 10*3/uL 0.33-0.92 EOS x10^3 (test code = 711-2) 0.38 10*3/uL 0.03-0.39 BASO x10^3 (test code = 704-7) 0.04 10*3/uL 0.01-0.07 Lab Interpretation (test code = 10454-1) Abnormal [facility] WITH [id number] 17:18:52* Test Item Value Reference Range Interpretation Comme nts WBC (test code = 6690-2) 7.41 See_Comment [Automated messa ge] The system which generated this result transmitted reference range: 4.30 - 11.10 10*3/?L. The reference range was not used to interpret this result as normal/abnormal. RBC (test code = 789-8) 4.20 See_Comment [Automated messa ge] The system which generated this result transmitted reference range: 3.93 - 5.25 10*6/?L. The reference range was not used to interpret this result as normal/abnormal. HGB (test code = 718-7) 9.1 g/dL 11.6-15.0 L HCT (test code = 4544-3) 30.2 % 35.7-45.2 L MCV (test code = 787-2) 71.9 fL 80.6-95.5 L MCH (test code = 785-6) 21.7 pg 25.9-32.8 L MCHC (test code = 786-4) 30.1 g/dL 31.6-35.1 L RDW-SD (test code = 84075-7) 46.2 fL 39.0-49.9 RDW-CV (test code = 788-0) 17.9 % 12.0-15.5 H PLT (test code = 777-3) 304 See_Comment [Automated messa ge] The system which generated this result transmitted reference range: 166 - 358 10*3/?L. The reference range was not used to interpret this result as normal/abnormal. MPV (test code = 34600-3) 11.0 fL 9.5-12.9 NRBC/100 WBC (test code = 5292702054) 0.0 See_Comment [Automated me ssage] The system which generated this result transmitted reference range: 0.0 - 10.0 /100 WBCs. The reference range was not used to interpret this result as normal/abnormal. NRBC x10^3 (test code = 8296245346) See_Comment [Automated messa ge] The system which generated this result transmitted reference range: 10*3/?L. The reference range was not used to interpret this result as normal/abnormal. GRAN MAT (NEUT) % (test code = 770-8) 68.6 % IMM GRAN % (test code = 5302181124) 0.70 % LYMPH % (test code = 736-9) 19.8 % MONO % (test code = 5905-5) 5.3 % EOS % (test code = 713-8) 5.1 % BASO % (test code = 706-2) 0.5 % GRAN MAT x10^3(ANC) (test code = 1156763288) 5.08 10*3/uL 1.88-7.09 IMM GRAN x10^3 (test code = 2963491018) 0.05 10*3/uL 0.00-0.06 LYMPH x10^3 (test code = 731-0) 1.47 10*3/uL 1.32-3.29 MONO x10^3 (test code = 742-7) 0.39 10*3/uL 0.33-0.92 EOS x10^3 (test code = 711-2) 0.38 10*3/uL 0.03-0.39 BASO x10^3 (test code = 704-7) 0.04 10*3/uL 0.01-0.07 Lab Interpretation (test code = 99136-0) Abnormal [facility] [id number] 16:24:00* Test Item Value Reference Range Interpretation Comme nts POCT PREG (test code = 1605) Negative On board controls acceptable with C Line (test code = 3574) Yes POCT PREG LOT # (test code = 3575) [id number] POCT PREG TEST DATE ( test code = 3576) 04-11-2024 Lab Interpretation (test cod e = 96790-7) [facility] [id number] 16:24:00* Test Item Value Reference Range Interpretation Comme nts POCT PREG (test code = 1605) Negative On board controls acceptable with C Line (test code = 3574) Yes POCT PREG LOT # (test code = 3575) [id number] POCT PREG TEST DATE ( test code = 3576) 04-11-2024 Lab Interpretation (test cod e = 86371-4) [facility] [id number] 16:24:00* Test Item Value Reference Range Interpretation Comme nts POCT PREG (test code = 1605) Negative On board controls acceptable with C Line (test code = 3574) Yes POCT PREG LOT # (test code = 3575) [id number] POCT PREG TEST DATE ( test code = 3576) 04-11-2024 Lab Interpretation (test cod e = 54675-6) [facility] [id number] 16:24:00* Test Item Value Reference Range Interpretation Comme nts POCT PREG (test code = 1605) Negative On board controls acceptable with C Line (test code = 3574) Yes POCT PREG LOT # (test code = 3575) 568482 POCT PREG TEST DATE ( test code = 3576) 04-11-2024 Lab Interpretation (test cod e = 02690-0) [facility] [id number] 16:24:00* Test Item Value Reference Range Interpretation Comme nts POCT PREG (test code = 1605) Negative On board controls acceptable with C Line (test code = 3574) Yes POCT PREG LOT # (test code = 3575) [id number] POCT PREG TEST DATE ( test code = 3576) 04-11-2024 Lab Interpretation (test cod e = 49295-5) [facility] [id number] 16:24:00* Test Item Value Reference Range Interpretation Comme nts POCT PREG (test code = 1605) Negative On board controls acceptable with C Line (test code = 3574) Yes POCT PREG LOT # (test code = 3575) [id number] POCT PREG TEST DATE ( test code = 3576) 04-11-2024 Lab Interpretation (test cod e = 25857-9) [facility] [id number] 16:24:00* Test Item Value Reference Range Interpretation Comme nts POCT PREG (test code = 1605) Negative On board controls acceptable with C Line (test code = 3574) Yes POCT PREG LOT # (test code = 3575) 013123 POCT PREG TEST DATE ( test code = 3576) 04-11-2024 Lab Interpretation (test cod e = 94229-7) [facility] [id number] 16:24:00* Test Item Value Reference Range Interpretation Comme nts POCT PREG (test code = 1605) Negative On board controls acceptable with C Line (test code = 3574) Yes POCT PREG LOT # (test code = 3575) 045509 POCT PREG TEST DATE ( test code = 3576) 04-11-2024 Lab Interpretation (test cod e = 15722-9) [facility] [id number] 16:24:00* Test Item Value Reference Range Interpretation Comme nts POCT PREG (test code = 1605) Negative On board controls acceptable with C Line (test code = 3574) Yes POCT PREG LOT # (test code = 3575) 189640 POCT PREG TEST DATE ( test code = 3576) 04-11-2024 Lab Interpretation (test cod e = 53038-0) [facility] [id number] 16:24:00* Test Item Value Reference Range Interpretation Comme nts POCT PREG (test code = 1605) Negative On board controls acceptable with C Line (test code = 3574) Yes POCT PREG LOT # (test code = 3575) 133845 POCT PREG TEST DATE ( test code = 3576) 04-11-2024 Lab Interpretation (test cod e = 09953-7) [facility] [id number] 16:24:00* Test Item Value Reference Range Interpretation Comme nts POCT PREG (test code = 1605) Negative On board controls acceptable with C Line (test code = 3574) Yes POCT PREG LOT # (test code = 3575) 522691 POCT PREG TEST DATE ( test code = 3576) 04-11-2024 Lab Interpretation (test cod e = 57703-4) Normal [facility] [id number] 16:24:00* Test Item Value Reference Range Interpretation Comme nts POCT PREG (test code = 1605) Negative On board controls acceptable with C Line (test code = 3574) Yes POCT PREG LOT # (test code = 3575) 159346 POCT PREG TEST DATE ( test code = 3576) 04-11-2024 Lab Interpretation (test cod e = 78362-4) [facility] [id number] 16:24:00* Test Item Value Reference Range Interpretation Comme nts POCT PREG (test code = 1605) Negative On board controls acceptable with C Line (test code = 3574) Yes POCT PREG LOT # (test code = 3575) 223399 POCT PREG TEST DATE ( test code = 3576) 04-11-2024 Lab Interpretation (test cod e = 31220-0) [facility] [id number] 16:24:00* Test Item Value Reference Range Interpretation Comme nts POCT PREG (test code = 1605) Negative On board controls acceptable with C Line (test code = 3574) Yes POCT PREG LOT # (test code = 3575) 295429 POCT PREG TEST DATE ( test code = 3576) 04-11-2024 Lab Interpretation (test cod e = 54332-7) Normal [facility] [id number] 16:24:00* Test Item Value Reference Range Interpretation Comme nts POCT PREG (test code = 1605) Negative On board controls acceptable with C Line (test code = 3574) Yes POCT PREG LOT # (test code = 3575) 173133 POCT PREG TEST DATE ( test code = 3576) 04-11-2024 Lab Interpretation (test cod e = 85690-5) [facility] [id number] 16:24:00* Test Item Value Reference Range Interpretation Comme nts POCT PREG (test code = 1605) Negative On board controls acceptable with C Line (test code = 3574) Yes POCT PREG LOT # (test code = 3575) 901123 POCT PREG TEST DATE ( test code = 3576) 04-11-2024 Lab Interpretation (test cod e = 88880-6) [facility] [id number] 16:24:00* Test Item Value Reference Range Interpretation Comme nts POCT PREG (test code = 1605) Negative On board controls acceptable with C Line (test code = 3574) Yes POCT PREG LOT # (test code = 3575) 720957 POCT PREG TEST DATE ( test code = 3576) 04-11-2024 Lab Interpretation (test cod e = 89835-3) [facility] [id number] 16:24:00* Test Item Value Reference Range Interpretation Comme nts POCT PREG (test code = 1605) Negative On board controls acceptable with C Line (test code = 3574) Yes POCT PREG LOT # (test code = 3575) 472211 POCT PREG TEST DATE ( test code = 3576) 04-11-2024 [facility] Interpret[facility] (test cod e = 60185-0[facility] [id number] 19:09:14 * Test Item Value Reference Range Interpretation Comme nts Tissue Transglutaminase (tTG) Ab, IgA Interpretation (test code = 55992-3) Negative Negative Deamidated Gliadin Peptide (DGP) Ab, IgA Interpretation (test code = 55993-4) Negative Negative Tissue Transglutaminase (tTG) Ab, IgA (test code = 1925415505) <=7.0 Deamidated Gliadin Peptide (DGP) Ab, IgA (test code = 4137623172) 0.4 U/mL <=7.0 ZAINAB (test code = ZAINAB) < 7 U/mL ? Negative7 - 10 U/mL ?Equivocal> 10 U/mL ?Positive In case of equivocal results, we recommend to retest the patient after 8 -12 weeks. Lab Interpretation (test code = 78387-2) Normal [facility] ONLY CELIAC SCREEN [id number] 19:09:14 * Test Item Value Reference Range Interpretation Comme nts Tissue Transglutaminase (tTG) Ab, IgA Interpretation (test code = 07862-6) Negative Negative Deamidated Gliadin Peptide (DGP) Ab, IgA Interpretation (test code = 93449-0) Negative Negative Tissue Transglutaminase (tTG) Ab, IgA (test code = 3765032303) <=7.0 Deamidated Gliadin Peptide (DGP) Ab, IgA (test code = 9696881906) 0.4 U/mL <=7.0 ZAINAB (test code = ZAINAB) < 7 U/mL ? Negative7 - 10 U/mL ?Equivocal> 10 U/mL ?Positive In case of equivocal results, we recommend to retest the patient after 8 -12 weeks. Lab Interpretation (test code = 41892-1) Normal [facility] ONLY CELIAC SCREEN [id number] 19:09:14 * Test Item Value Reference Range Interpretation Comme nts Tissue Transglutaminase (tTG) Ab, IgA Interpretation (test code = 91381-4) Negative Negative Deamidated Gliadin Peptide (DGP) Ab, IgA Interpretation (test code = 40882-0) Negative Negative Tissue Transglutaminase (tTG) Ab, IgA (test code = 1057861752) <=7.0 Deamidated Gliadin Peptide (DGP) Ab, IgA (test code = 3072269889) 0.4 U/mL <=7.0 ZAINAB (test code = ZAINAB) < 7 U/mL ? Negative7 - 10 U/mL ?Equivocal> 10 U/mL ?Positive In case of equivocal results, we recommend to retest the patient after 8 -12 weeks. Lab Interpretation (test code = 22451-0) Normal [facility] ONLY CELIAC SCREEN [id number] 19:09:14 * Test Item Value Reference Range Interpretation Comme nts Tissue Transglutaminase (tTG) Ab, IgA Interpretation (test code = 16026-5) Negative Negative Deamidated Gliadin Peptide (DGP) Ab, IgA Interpretation (test code = 87102-6) Negative Negative Tissue Transglutaminase (tTG) Ab, IgA (test code = 9554401129) <=7.0 Deamidated Gliadin Peptide (DGP) Ab, IgA (test code = 7042070702) 0.4 U/mL <=7.0 ZAINAB (test code = ZAINAB) < 7 U/mL ? Negative7 - 10 U/mL ?Equivocal> 10 U/mL ?Positive In case of equivocal results, we recommend to retest the patient after 8 -12 weeks. Lab Interpretation (test code = 70023-4) Normal [facility] ONLY CELIAC SCREEN [id number] 19:09:14 * Test Item Value Reference Range Interpretation Comme nts Tissue Transglutaminase (tTG) Ab, IgA Interpretation (test code = 20358-2) Negative Negative Deamidated Gliadin Peptide (DGP) Ab, IgA Interpretation (test code = 39033-1) Negative Negative Tissue Transglutaminase (tTG) Ab, IgA (test code = 5748304597) <=7.0 Deamidated Gliadin Peptide (DGP) Ab, IgA (test code = 9473719103) 0.4 U/mL <=7.0 ZAINAB (test code = ZAINAB) < 7 U/mL ? Negative7 - 10 U/mL ?Equivocal> 10 U/mL ?Positive In case of equivocal results, we recommend to retest the patient after 8 -12 weeks. Lab Interpretation (test code = 44975-9) Normal [facility] ONLY CELIAC SCREEN [id number] 19:09:14 * Test Item Value Reference Range Interpretation Comme nts Tissue Transglutaminase (tTG) Ab, IgA Interpretation (test code = 72735-7) Negative Negative Deamidated Gliadin Peptide (DGP) Ab, IgA Interpretation (test code = 49269-0) Negative Negative Tissue Transglutaminase (tTG) Ab, IgA (test code = 8702408514) <=7.0 Deamidated Gliadin Peptide (DGP) Ab, IgA (test code = 7692219114) 0.4 U/mL <=7.0 ZAINAB (test code = ZAINAB) < 7 U/mL ? Negative7 - 10 U/mL ?Equivocal> 10 U/mL ?Positive In case of equivocal results, we recommend to retest the patient after 8 -12 weeks. Lab Interpretation (test code = 62242-0) Normal [facility] ONLY CELIAC SCREEN [id number] 19:09:14 * Test Item Value Reference Range Interpretation Comme nts Tissue Transglutaminase (tTG) Ab, IgA Interpretation (test code = 06801-9) Negative Negative Deamidated Gliadin Peptide (DGP) Ab, IgA Interpretation (test code = 53863-1) Negative Negative Tissue Transglutaminase (tTG) Ab, IgA (test code = 3759882712) <=7.0 Deamidated Gliadin Peptide (DGP) Ab, IgA (test code = 6076537417) 0.4 U/mL <=7.0 ZAINAB (test code = ZAINAB) < 7 U/mL ? Negative7 - 10 U/mL ?Equivocal> 10 U/mL ?Positive In case of equivocal results, we recommend to retest the patient after 8 -12 weeks. Lab Interpretation (test code = 82608-6) Normal [facility] ONLY CELIAC SCREEN [id number] 19:09:14 * Test Item Value Reference Range Interpretation Comme nts Tissue Transglutaminase (tTG) Ab, IgA Interpretation (test code = 68573-1) Negative Negative Deamidated Gliadin Peptide (DGP) Ab, IgA Interpretation (test code = 63253-8) Negative Negative Tissue Transglutaminase (tTG) Ab, IgA (test code = 3863776777) <=7.0 Deamidated Gliadin Peptide (DGP) Ab, IgA (test code = 9709912387) 0.4 U/mL <=7.0 ZAINAB (test code = ZAINAB) < 7 U/mL ? Negative7 - 10 U/mL ?Equivocal> 10 U/mL ?Positive In case of equivocal results, we recommend to retest the patient after 8 -12 weeks. Lab Interpretation (test code = 76656-3) Normal [facility] ONLY CELIAC SCREEN [id number] 19:09:14 * Test Item Value Reference Range Interpretation Comme nts Tissue Transglutaminase (tTG) Ab, IgA Interpretation (test code = 72649-8) Negative Negative Deamidated Gliadin Peptide (DGP) Ab, IgA Interpretation (test code = 29716-2) Negative Negative Tissue Transglutaminase (tTG) Ab, IgA (test code = 5457049440) <=7.0 Deamidated Gliadin Peptide (DGP) Ab, IgA (test code = 4425427414) 0.4 U/mL <=7.0 ZAINAB (test code = ZAINAB) < 7 U/mL ? Negative7 - 10 U/mL ?Equivocal> 10 U/mL ?Positive In case of equivocal results, we recommend to retest the patient after 8 -12 weeks. Lab Interpretation (test code = 24811-0) Normal [facility] ONLY CELIAC SCREEN [id number] 19:09:14 * Test Item Value Reference Range Interpretation Comme nts Tissue Transglutaminase (tTG) Ab, IgA Interpretation (test code = 86625-5) Negative Negative Deamidated Gliadin Peptide (DGP) Ab, IgA Interpretation (test code = 51256-6) Negative Negative Tissue Transglutaminase (tTG) Ab, IgA (test code = 5869101412) <=7.0 Deamidated Gliadin Peptide (DGP) Ab, IgA (test code = 7482993239) 0.4 U/mL <=7.0 ZAINAB (test code = ZAINAB) < 7 U/mL ? Negative7 - 10 U/mL ?Equivocal> 10 U/mL ?Positive In case of equivocal results, we recommend to retest the patient after 8 -12 weeks. Lab Interpretation (test code = 04717-7) Normal [facility] ONLY CELIAC SCREEN [id number] 19:09:14 * Test Item Value Reference Range Interpretation Comme nts Tissue Transglutaminase (tTG) Ab, IgA Interpretation (test code = 60164-5) Negative Negative Deamidated Gliadin Peptide (DGP) Ab, IgA Interpretation (test code = 59336-8) Negative Negative Tissue Transglutaminase (tTG) Ab, IgA (test code = 7571611593) <=7.0 Deamidated Gliadin Peptide (DGP) Ab, IgA (test code = 9825421215) 0.4 U/mL <=7.0 ZAINAB (test code = ZAINAB) < 7 U/mL ? Negative7 - 10 U/mL ?Equivocal> 10 U/mL ?Positive In case of equivocal results, we recommend to retest the patient after 8 -12 weeks. Lab Interpretation (test code = 56641-6) Normal [facility] ONLY CELIAC SCREEN [id number] 19:09:14 * Test Item Value Reference Range Interpretation Comme nts Tissue Transglutaminase (tTG) Ab, IgA Interpretation (test code = 76621-8) Negative Negative Deamidated Gliadin Peptide (DGP) Ab, IgA Interpretation (test code = 85497-8) Negative Negative Tissue Transglutaminase (tTG) Ab, IgA (test code = 1007330278) <=7.0 Deamidated Gliadin Peptide (DGP) Ab, IgA (test code = 4154657616) 0.4 U/mL <=7.0 ZAINAB (test code = ZAINAB) < 7 U/mL ? Negative7 - 10 U/mL ?Equivocal> 10 U/mL ?Positive In case of equivocal results, we recommend to retest the patient after 8 -12 weeks. Lab Interpretation (test code = 19172-6) Normal [facility] [id number] 20:24:44* Test Item Value Reference Range Interpretation Comme nts Total IgA (test code = 2471489434) 78.3 U/mL 70-312 Lab Interpretation (test cod e = 04979-2) Normal [facility] [id number] 20:24:44* Test Item Value Reference Range Interpretation Comme nts Total IgA (test code = 0089271181) 78.3 U/mL 70-312 Lab Interpretation (test cod e = 86409-5) [facility] [id number] 20:24:44* Test Item Value Reference Range Interpretation Comme nts Total IgA (test code = 5022335242) 78.3 U/mL 70-312 Lab Interpretation (test cod e = 71081-0) [facility]2023-09-07 20:24:44* Test Item Value Reference Range Interpretation Comme nts Total IgA (test code = 6509076531) 78.3 U/mL 70-312 Lab Interpretation (test cod e = 08234-2) [facility]2023-09-07 20:24:44* Test Item Value Reference Range Interpretation Comme nts Total IgA (test code = 5009961764) 78.3 U/mL 70-312 Lab Interpretation (test cod e = 42616-6) [facility]2023-09-07 20:24:44* Test Item Value Reference Range Interpretation Comme nts Total IgA (test code = 7586976549) 78.3 U/mL 70-312 Lab Interpretation (test cod e = 78428-5) [facility]2023-09-07 20:24:44* Test Item Value Reference Range Interpretation Comme nts Total IgA (test code = 4210902325) 78.3 U/mL 70-312 Lab Interpretation (test cod e = 88524-9) [facility]2023-09-07 20:24:44* Test Item Value Reference Range Interpretation Comme nts Total IgA (test code = 1158956829) 78.3 U/mL 70-312 Lab Interpretation (test cod e = 03355-3) [facility]2023-09-07 20:24:44* Test Item Value Reference Range Interpretation Comme nts Total IgA (test code = 3874878783) 78.3 U/mL 70-312 Lab Interpretation (test cod e = 68406-5) [facility]2023-09-07 20:24:44* Test Item Value Reference Range Interpretation Comme nts Total IgA (test code = 0893591245) 78.3 U/mL 70-312 Lab Interpretation (test cod e = 29054-9) Normal [facility] [id number] 20:24:44* Test Item Value Reference Range Interpretation Comme nts Total IgA (test code = 0060721209) 78.3 U/mL 70-312 Lab Interpretation (test cod e = 34950-2) Normal [facility] [id number] 20:24:44* Test Item Value Reference Range Interpretation Comme nts Total IgA (test code = 2294983896) 78.3 U/mL 70-312 Lab Interpretation (test cod e = 74930-5) Normal [facility] [id number] 17:30:19* Test Item Value Reference Range Interpretation Comme nts FERRITIN (test code = 9931036962) 4.8 ng/mL 6.0-137.0 L ZAINAB (test code = ZAINAB) Biotin has been reported to cause a negative bias, interpret results relative to patient's use of biotin. Lab Interpretation (test code = 86236-8) Abnormal [facility] [id number] 17:30:19* Test Item Value Reference Range Interpretation Comme nts FERRITIN (test code = 1064485511) 4.8 ng/mL 6.0-137.0 L ZAINAB (test code = ZAINAB) Biotin has been reported to cause a negative bias, interpret results relative to patient's use of biotin. Lab Interpretation (test code = 68603-6) Abnormal [facility] [id number] 17:30:19* Test Item Value Reference Range Interpretation Comme nts FERRITIN (test code = 9425429667) 4.8 ng/mL 6.0-137.0 L ZAINAB (test code = ZAINAB) Biotin has been reported to cause a negative bias, interpret results relative to patient's use of biotin. Lab Interpretation (test code = 43133-2) Abnormal [facility] [id number] 17:30:19* Test Item Value Reference Range Interpretation Comme nts FERRITIN (test code = 3894718423) 4.8 ng/mL 6.0-137.0 L ZAINAB (test code = ZAINAB) Biotin has been reported to cause a negative bias, interpret results relative to patient's use of biotin. Lab Interpretation (test code = 81661-5) Abnormal [facility] [id number] 17:30:19* Test Item Value Reference Range Interpretation Comme nts FERRITIN (test code = 8932086428) 4.8 ng/mL 6.0-137.0 L ZAINAB (test code = ZAINAB) Biotin has been reported to cause a negative bias, interpret results relative to patient's use of biotin. Lab Interpretation (test code = 80846-9) Abnormal [facility] [id number] 17:30:19* Test Item Value Reference Range Interpretation Comme nts FERRITIN (test code = 1340403248) 4.8 ng/mL 6.0-137.0 L ZAINAB (test code = ZAINAB) Biotin has been reported to cause a negative bias, interpret results relative to patient's use of biotin. Lab Interpretation (test code = 07865-7) Abnormal [facility] [id number] 17:30:19* Test Item Value Reference Range Interpretation Comme nts FERRITIN (test code = 2933402108) 4.8 ng/mL 6.0-137.0 L ZAINAB (test code = ZAINAB) Biotin has been reported to cause a negative bias, interpret results relative to patient's use of biotin. Lab Interpretation (test code = 17250-7) Abnormal [facility] [id number] 17:30:19* Test Item Value Reference Range Interpretation Comme nts FERRITIN (test code = 9613221410) 4.8 ng/mL 6.0-137.0 L ZAINAB (test code = ZAINAB) Biotin has been reported to cause a negative bias, interpret results relative to patient's use of biotin. Lab Interpretation (test code = 88875-0) Abnormal [facility] [id number] 17:30:19* Test Item Value Reference Range Interpretation Comme nts FERRITIN (test code = 2716593440) 4.8 ng/mL 6.0-137.0 L ZAINAB (test code = ZAINAB) Biotin has been reported to cause a negative bias, interpret results relative to patient's use of biotin. Lab Interpretation (test code = 66882-8) Abnormal [facility] [id number] 17:30:19* Test Item Value Reference Range Interpretation Comme nts FERRITIN (test code = 5267446386) 4.8 ng/mL 6.0-137.0 L ZAINAB (test code = ZAINAB) Biotin has been reported to cause a negative bias, interpret results relative to patient's use of biotin. Lab Interpretation (test code = 47945-1) [facility] [place] [id number] 17:30:19* Test Item Value Reference Range Interpretation Comme nts FERRITIN (test code = 5359523125) 4.8 ng/mL 6.0-137.0 L ZAINAB (test code = ZAINAB) Biotin has been reported to cause a negative bias, interpret results relative to patient's use of biotin. Lab Interpretation (test code = 60005-7) [facility] [place] [id number] 17:30:19* Test Item Value Reference Range Interpretation Comme nts FERRITIN (test code = 5915006280) 4.8 ng/mL 6.0-137.0 L ZAINAB (test code = ZAINAB) Biotin has been reported to cause a negative bias, interpret results relative to patient's use of biotin. Lab Interpretation (test code = 22855-6) Abnormal [facility] [id number] 17:03:34* Test Item Value Reference Range Interpretation Comme nts IRON (test code = 2026608718) 34 ug/dL 50-160 L TIBC (test code = 3109079558) 515 ug/dL 250-410 H % FE SAT (test code = 1009897486) 7 % 20-50 L Lab Interpretation (test cod e = 36258-1) Abnormal [facility] [id number] 17:03:34* Test Item Value Reference Range Interpretation Comme nts IRON (test code = 8594901347) 34 ug/dL 50-160 L TIBC (test code = 3994821250) 515 ug/dL 250-410 H % FE SAT (test code = 2857865057) 7 % 20-50 L Lab Interpretation (test cod e = 21453-8) Abnormal [facility] [id number] 17:03:34* Test Item Value Reference Range Interpretation Comme nts IRON (test code = 1346204202) 34 ug/dL 50-160 L TIBC (test code = 7107924366) 515 ug/dL 250-410 H % FE SAT (test code = 4645212792) 7 % 20-50 L Lab Interpretation (test cod e = 81375-4) Abnormal [facility] [id number] 17:03:34* Test Item Value Reference Range Interpretation Comme nts IRON (test code = 3681929251) 34 ug/dL 50-160 L TIBC (test code = 3622138464) 515 ug/dL 250-410 H % FE SAT (test code = 2643804131) 7 % 20-50 L Lab Interpretation (test cod e = 76326-5) Abnormal [facility] [id number] 17:03:34* Test Item Value Reference Range Interpretation Comme nts IRON (test code = 9376566390) 34 ug/dL 50-160 L TIBC (test code = 1283667304) 515 ug/dL 250-410 H % FE SAT (test code = 3172178178) 7 % 20-50 L Lab Interpretation (test cod e = 59412-1) Abnormal [facility] [id number] 17:03:34* Test Item Value Reference Range Interpretation Comme nts IRON (test code = 1790752457) 34 ug/dL 50-160 L TIBC (test code = 0174364351) 515 ug/dL 250-410 H % FE SAT (test code = 6746477161) 7 % 20-50 L Lab Interpretation (test cod e = 79468-7) Abnormal [facility] [id number] 17:03:34* Test Item Value Reference Range Interpretation Comme nts IRON (test code = 7464353286) 34 ug/dL 50-160 L TIBC (test code = 9571518993) 515 ug/dL 250-410 H % FE SAT (test code = 7989796261) 7 % 20-50 L Lab Interpretation (test cod e = 11185-7) Abnormal [facility] [id number] 17:03:34* Test Item Value Reference Range Interpretation Comme nts IRON (test code = 9294723625) 34 ug/dL 50-160 L TIBC (test code = 1773230835) 515 ug/dL 250-410 H % FE SAT (test code = 3801715282) 7 % 20-50 L Lab Interpretation (test cod e = 26641-8) Abnormal [facility] [id number] 17:03:34* Test Item Value Reference Range Interpretation Comme nts IRON (test code = 2293124446) 34 ug/dL 50-160 L TIBC (test code = 9894833917) 515 ug/dL 250-410 H % FE SAT (test code = 0746232485) 7 % 20-50 L Lab Interpretation (test cod e = 41252-0) Abnormal [facility]2023-09-07 17:03:34* Test Item Value Reference Range Interpretation Comme nts IRON (test code = 6337826267) 34 ug/dL 50-160 L TIBC (test code = 6122259421) 515 ug/dL 250-410 H % FE SAT (test code = 6937895844) 7 % 20-50 L Lab Interpretation (test cod e = 38268-1) Abnormal [facility]2023-09-07 17:03:34* Test Item Value Reference Range Interpretation Comme nts IRON (test code = 6229395578) 34 ug/dL 50-160 L TIBC (test code = 6424762138) 515 ug/dL 250-410 H % FE SAT (test code = 0993304222) 7 % 20-50 L Lab Interpretation (test cod e = 30318-0) Abnormal [facility]2023-09-07 17:03:34* Test Item Value Reference Range Interpretation Comme nts IRON (test code = 5758352360) 34 ug/dL 50-160 L TIBC (test code = 2706520087) 515 ug/dL 250-410 H % FE SAT (test code = 5213927610) 7 % 20-50 L Lab Interpretation (test cod e = 09055-4) Abnormal [facility]2023-08-24 19:48:06* Test Item Value Reference Range Interpretation Comme nts Norene (test code = 1621858421) 0.5 mmol/L 0.6-1.2 L ZAINAB (test code = ZAINAB) Toxic Range: ? Greater than 1.2 mmol/L Lab Interpretation (test code = 27452-1) Abnormal [address]08-24 19:48:06* Test Item Value Reference Range Interpretation Comme nts Norene (test code = 2569161582) 0.5 mmol/L 0.6-1.2 L ZAINAB (test code = ZAINAB) Toxic Range: ? Greater than 1.2 mmol/L Lab Interpretation (test code = 02613-7) Abnormal [facility]2023-08-24 19:48:06* Test Item Value Reference Range Interpretation Comme nts Norene (test code = 0625450886) 0.5 mmol/L 0.6-1.2 L ZAINAB (test code = ZAINAB) Toxic Range: ? Greater than 1.2 mmol/L Lab Interpretation (test code = 17055-0) Abnormal [address]08-24 19:48:06* Test Item Value Reference Range Interpretation Comme nts Norene (test code = 7785072943) 0.5 mmol/L 0.6-1.2 L ZAINAB (test code = ZAINAB) Toxic Range: ? Greater than 1.2 mmol/L Lab Interpretation (test code = 33150-3) Abnormal [facility]2023-08-24 19:48:06* Test Item Value Reference Range Interpretation Comme nts Norene (test code = 5766653692) 0.5 mmol/L 0.6-1.2 L ZAINAB (test code = ZAINAB) Toxic Range: ? Greater than 1.2 mmol/L Lab Interpretation (test code = 01707-8) Abnormal [facility]2023-08-24 19:48:06* Test Item Value Reference Range Interpretation Comme nts Norene (test code = 9046850926) 0.5 mmol/L 0.6-1.2 L ZAINAB (test code = ZAINAB) Toxic Range: ? Greater than 1.2 mmol/L Lab Interpretation (test code = 26265-4) Abnormal [facility]2023-08-24 19:48:06* Test Item Value Reference Range Interpretation Comme nts Norene (test code = 3447791320) 0.5 mmol/L 0.6-1.2 L ZAINAB (test code = ZAINAB) Toxic Range: ? Greater than 1.2 mmol/L Lab Interpretation (test code = 82859-8) Abnormal [facility]2023-08-24 19:48:06* Test Item Value Reference Range Interpretation Comme nts Norene (test code = 8775926930) 0.5 mmol/L 0.6-1.2 L ZAINAB (test code = ZAINAB) Toxic Range: ? Greater than 1.2 mmol/L Lab Interpretation (test code = 17633-4) Abnormal [facility]2023-08-24 19:48:06* Test Item Value Reference Range Interpretation Comme nts Norene (test code = 4719388237) 0.5 mmol/L 0.6-1.2 L ZAINAB (test code = ZAINAB) Toxic Range: ? Greater than 1.2 mmol/L Lab Interpretation (test code = 36636-7) Abnormal [facility]2023-08-24 19:48:06* Test Item Value Reference Range Interpretation Comme nts Norene (test code = 3353355001) 0.5 mmol/L 0.6-1.2 L ZAINAB (test code = ZAINAB) Toxic Range: ? Greater than 1.2 mmol/L Lab Interpretation (test code = 58140-0) Abnormal [facility]2023-08-24 19:48:06* Test Item Value Reference Range Interpretation Comme nts Norene (test code = 8499408001) 0.5 mmol/L 0.6-1.2 L ZAINAB (test code = ZAINAB) Toxic Range: ? Greater than 1.2 mmol/L Lab Interpretation (test code = 31526-2) Abnormal [facility]2023-08-24 19:48:06* Test Item Value Reference Range Interpretation Comme nts Norene (test code = 2651359295) 0.5 mmol/L 0.6-1.2 L ZAINAB (test code = ZAINAB) Toxic Range: ? Greater than 1.2 mmol/L Lab Interpretation (test code = 83209-2) Abnormal [facility]2023-08-24 19:48:06* Test Item Value Reference Range Interpretation Comme nts Norene (test code = 6452509647) 0.5 mmol/L 0.6-1.2 L ZAINAB (test code = ZAINAB) Toxic Range: ? Greater than 1.2 mmol/L Lab Interpretation (test code = 46653-8) [facility] 19:48:06* Test Item Value Reference Range Interpretation Comme nts Norene (test code = 4695414232) 0.5 mmol/L 0.6-1.2 L ZAINAB (test code = ZAINAB) Toxic Range: ? Greater than 1.2 mmol/L Lab Interpretation (test code = 99918-6) [facility] [id number] 17:24:34 * Test Item Value Reference Range Interpretation Comme nts TSH (test code = 8764522438) 1.07 See_Comment [Automated messa ge] The system which generated this result transmitted reference range: 0.45 - 4.70 mIU/L. The reference range was not used to interpret this result as normal/abnormal. Lab Interpretation (test code = 09490-4) [facility] [id number] 17:24:34 * Test Item Value Reference Range Interpretation Comme nts TSH (test code = 0123530785) 1.07 See_Comment [Automated messa ge] The system which generated this result transmitted reference range: 0.45 - 4.70 mIU/L. The reference range was not used to interpret this result as normal/abnormal. Lab Interpretation (test code = 83621-1) [facility] [id number] 17:24:34 * Test Item Value Reference Range Interpretation Comme nts TSH (test code = 6646643106) 1.07 See_Comment [Automated messa ge] The system which generated this result transmitted reference range: 0.45 - 4.70 mIU/L. The reference range was not used to interpret this result as normal/abnormal. Lab Interpretation (test code = 48122-9) [facility] [id number] 17:24:34 * Test Item Value Reference Range Interpretation Comme nts TSH (test code = 6228328810) 1.07 See_Comment [Automated messa ge] The system which generated this result transmitted reference range: 0.45 - 4.70 mIU/L. The reference range was not used to interpret this result as normal/abnormal. Lab Interpretation (test code = 67463-9) [facility] [id number] 17:24:34 * Test Item Value Reference Range Interpretation Comme nts TSH (test code = 0348645983) 1.07 See_Comment [Automated messa ge] The system which generated this result transmitted reference range: 0.45 - 4.70 mIU/L. The reference range was not used to interpret this result as normal/abnormal. Lab Interpretation (test code = 46634-6) Normal [facility] [id number] 17:24:34 * Test Item Value Reference Range Interpretation Comme nts TSH (test code = 7930699220) 1.07 See_Comment [Automated messa ge] The system which generated this result transmitted reference range: 0.45 - 4.70 mIU/L. The reference range was not used to interpret this result as normal/abnormal. Lab Interpretation (test code = 14934-8) Normal [facility] [id number] 17:24:34 * Test Item Value Reference Range Interpretation Comme nts TSH (test code = 8437406097) 1.07 See_Comment [Automated messa ge] The system which generated this result transmitted reference range: 0.45 - 4.70 mIU/L. The reference range was not used to interpret this result as normal/abnormal. Lab Interpretation (test code = 01909-9) Normal [facility] [id number] 17:24:34 * Test Item Value Reference Range Interpretation Comme nts TSH (test code = 4512393520) 1.07 See_Comment [Automated messa ge] The system which generated this result transmitted reference range: 0.45 - 4.70 mIU/L. The reference range was not used to interpret this result as normal/abnormal. Lab Interpretation (test code = 42155-8) Normal [facility] [id number] 17:24:34 * Test Item Value Reference Range Interpretation Comme nts TSH (test code = 5449273169) 1.07 See_Comment [Automated messa ge] The system which generated this result transmitted reference range: 0.45 - 4.70 mIU/L. The reference range was not used to interpret this result as normal/abnormal. Lab Interpretation (test code = 55277-3) Normal [facility] [id number] 17:24:34 * Test Item Value Reference Range Interpretation Comme nts TSH (test code = 8404185757) 1.07 See_Comment [Automated messa ge] The system which generated this result transmitted reference range: 0.45 - 4.70 mIU/L. The reference range was not used to interpret this result as normal/abnormal. Lab Interpretation (test code = 98415-5) Normal [facility] [id number] 17:24:34 * Test Item Value Reference Range Interpretation Comme nts TSH (test code = 8839214235) 1.07 See_Comment [Automated messa ge] The system which generated this result transmitted reference range: 0.45 - 4.70 mIU/L. The reference range was not used to interpret this result as normal/abnormal. Lab Interpretation (test code = 03959-6) Normal [facility] [id number] 17:24:34 * Test Item Value Reference Range Interpretation Comme nts TSH (test code = 4680903034) 1.07 See_Comment [Automated messa ge] The system which generated this result transmitted reference range: 0.45 - 4.70 mIU/L. The reference range was not used to interpret this result as normal/abnormal. Lab Interpretation (test code = 02191-9) Normal [facility] [id number] 17:24:34 * Test Item Value Reference Range Interpretation Comme nts TSH (test code = 7146025509) 1.07 See_Comment [Automated messa ge] The system which generated this result transmitted reference range: 0.45 - 4.70 mIU/L. The reference range was not used to interpret this result as normal/abnormal. Lab Interpretation (test code = 60594-9) Normal [facility] [id number] 17:24:34 * Test Item Value Reference Range Interpretation Comme nts TSH (test code = 4979104778) 1.07 See_Comment [Automated messa ge] The system which generated this result transmitted reference range: 0.45 - 4.70 mIU/L. The reference range was not used to interpret this result as normal/abnormal. Lab Interpretation (test code = 58739-4) Normal [facility]. METABOLIC PANEL ([id number])2022-10-05 16:54:48* Test Item Value Reference Range Interpretation Comme nts NA (test code = 5228365682) 140 mmol/L 135-145 K (test code = 5354311986) 4.6 mmol/L 3.5-5.0 CL (test code = 9298622487) 106 mmol/L 98-108 CO2 TOTAL (test code = 6465382047) 28 mmol/L 23-31 AGAP (test code = 8187484478) 6 2-16 BUN (test code = 4761137804) 5 mg/dL 7-23 L GLUCOSE (test code = 2144340422) 90 mg/dL 70-110 CREATININE (test code = 9306160994) 0.54 mg/dL 0.50-1.04 TOTAL BILI (test code = 4189224758) 0.1 mg/dL 0.1-1.1 CALCIUM (test code = 9168321228) 9.6 mg/dL 8.6-10.6 T PROTEIN (test code = 2685140738) 6.2 g/dL 6.3-8.2 L ALBUMIN (test code = 7678068185) 4.0 g/dL 3.5-5.0 ALK PHOS (test code = 8821808222) 125 U/L 34-122 H ALTv (test code = 1742-6) 29 U/L 5-35 AST(SGOT) (test code = 6589744316) 24 U/L 13-40 eGFR (test code = 5643472173) 122.1 mL/min/1.73m2 ZAINAB (test code = ZAINAB) Association of [...] or abnormalities in imaging tests). Lab Interpretation (test code = 58845-9) [facility]normal [facility] (11727)(TOTAL CHOLESTEROL, TRIGLYCERIDES, HDL)2022-10-05 16:54:48* Test Item Value Reference Range Interpretation Comme nts CHOL (test code = 9420190654) 183 mg/dL 120-200 HDL (test code = 8602644142) 40 mg/dL >=50 L HDLC RATIO (test code = 2114395326) 4.6 <=4.5 H TRIG (test code = 1313861677) 128 mg/dL 30-170 LDL CHOL (test code = 60785-7) 117 mg/dL <=160 VLDL (test code = 4849264337) 26 mg/dL 5-60 Lab Interpretation (test cod e = 65958-4) [facility]OLIC [facility] (15742)2022-10-05 16:54:48* Test Item Value Reference Range Interpretation Comme nts NA (test code = 2151254876) 140 mmol/L 135-145 K (test code = 4482935464) 4.6 mmol/L 3.5-5.0 CL (test code = 2388486718) 106 mmol/L 98-108 CO2 TOTAL (test code = 3867975790) 28 mmol/L 23-31 AGAP (test code = 0893213037) 6 2-16 BUN (test code = 8261783419) 5 mg/dL 7-23 L GLUCOSE (test code = 7758637401) 90 mg/dL 70-110 CREATININE (test code = 3485848259) 0.54 mg/dL 0.50-1.04 TOTAL BILI (test code = 3445362799) 0.1 mg/dL 0.1-1.1 CALCIUM (test code = 4476746415) 9.6 mg/dL 8.6-10.6 T PROTEIN (test code = 4609697372) 6.2 g/dL 6.3-8.2 L ALBUMIN (test code = 6783749816) 4.0 g/dL 3.5-5.0 ALK PHOS (test code = 4520666799) 125 U/L 34-122 H ALTv (test code = 1742-6) 29 U/L 5-35 AST(SGOT) (test code = 5147119810) 24 U/L 13-40 eGFR (test code = 2981691403) 122.1 mL/min/1.73m2 ZAINAB (test code = ZAINAB) Association of [...] or abnormalities in imaging tests). Lab Interpretation (test code = 12651-5) [facility]normal [facility] (00595)(TOTAL CHOLESTEROL, TRIGLYCERIDES, HDL)2022-10-05 16:54:48* Test Item Value Reference Range Interpretation Comme nts CHOL (test code = 1444178378) 183 mg/dL 120-200 HDL (test code = 2706427840) 40 mg/dL >=50 L HDLC RATIO (test code = 3739622626) 4.6 <=4.5 H TRIG (test code = 3649285349) 128 mg/dL 30-170 LDL CHOL (test code = 23693-2) 117 mg/dL <=160 VLDL (test code = 8324264765) 26 mg/dL 5-60 Lab Interpretation (test cod e = 44681-7) [facility] (02888)2022-10-05 16:54:48* Test Item Value Reference Range Interpretation Comme nts NA (test code = 0851624515) 140 mmol/L 135-145 K (test code = 8763119962) 4.6 mmol/L 3.5-5.0 CL (test code = 0901429066) 106 mmol/L 98-108 CO2 TOTAL (test code = 1003204527) 28 mmol/L 23-31 AGAP (test code = 7101973389) 6 2-16 BUN (test code = 8523890047) 5 mg/dL 7-23 L GLUCOSE (test code = 8172148762) 90 mg/dL 70-110 CREATININE (test code = 5187023491) 0.54 mg/dL 0.50-1.04 TOTAL BILI (test code = 1920506229) 0.1 mg/dL 0.1-1.1 CALCIUM (test code = 4738360496) 9.6 mg/dL 8.6-10.6 T PROTEIN (test code = 3906871373) 6.2 g/dL 6.3-8.2 L ALBUMIN (test code = 8200822782) 4.0 g/dL 3.5-5.0 ALK PHOS (test code = 2887441567) 125 U/L 34-122 H ALTv (test code = 1742-6) 29 U/L 5-35 AST(SGOT) (test code = 3161075844) 24 U/L 13-40 eGFR (test code = 4270466226) 122.1 mL/min/1.73m2 ZAINAB (test code = ZAINAB) Association of [...] or abnormalities in imaging tests). Lab Interpretation (test code = 80489-8) [facility]98308[facility]TOTAL CHOLESTEROL, TRIGLYCERIDES, HDL)2022-10-05 16:54:48* Test Item Value Reference Range Interpretation Comme nts CHOL (test code = 6555937629) 183 mg/dL 120-200 HDL (test code = 8080331336) 40 mg/dL >=50 L HDLC RATIO (test code = 5674186843) 4.6 <=4.5 H TRIG (test code = 6523185077) 128 mg/dL 30-170 LDL CHOL (test code = 09900-5) 117 mg/dL <=160 VLDL (test code = 2865123443) 26 mg/dL 5-60 Lab Interpretation (test cod e = 43416-8) [facility] (27185)(TOTAL CHOLESTEROL, TRIGLYCERIDES, HDL)2022-10-05 16:54:48* Test Item Value Reference Range Interpretation Comme nts CHOL (test code = 6710237108) 183 mg/dL 120-200 HDL (test code = 8482593409) 40 mg/dL >=50 L HDLC RATIO (test code = 1180520464) 4.6 <=4.5 H TRIG (test code = 1757441685) 128 mg/dL 30-170 LDL CHOL (test code = 22893-4) 117 mg/dL <=160 VLDL (test code = 7576501469) 26 mg/dL 5-60 Lab Interpretation (test cod e = 05902-0) [facility] (31984)(TOTAL CHOLESTEROL, TRIGLYCERIDES, HDL)2022-10-05 16:54:48* Test Item Value Reference Range Interpretation Comme nts CHOL (test code = 3556551955) 183 mg/dL 120-200 HDL (test code = 1089264280) 40 mg/dL >=50 L HDLC RATIO (test code = 5972545008) 4.6 <=4.5 H TRIG (test code = 6085629220) 128 mg/dL 30-170 LDL CHOL (test code = 83200-4) 117 mg/dL <=160 VLDL (test code = 3737567416) 26 mg/dL 5-60 Lab Interpretation (test cod e = 91511-6) [facility] (26381)(TOTAL CHOLESTEROL, TRIGLYCERIDES, HDL)2022-10-05 16:54:48* Test Item Value Reference Range Interpretation Comme nts CHOL (test code = 2423718429) 183 mg/dL 120-200 HDL (test code = 9859910030) 40 mg/dL >=50 L HDLC RATIO (test code = 9215923617) 4.6 <=4.5 H TRIG (test code = 2419884280) 128 mg/dL 30-170 LDL CHOL (test code = 35408-7) 117 mg/dL <=160 VLDL (test code = 3933712996) 26 mg/dL 5-60 Lab Interpretation (test cod e = 79305-7) [facility]normal [facility] (98989)(TOTAL CHOLESTEROL, TRIGLYCERIDES, HDL)2022-10-05 16:54:48* Test Item Value Reference Range Interpretation Comme nts CHOL (test code = 1993032043) 183 mg/dL 120-200 HDL (test code = 0537505540) 40 mg/dL >=50 L HDLC RATIO (test code = 8350365398) 4.6 <=4.5 H TRIG (test code = 5787379293) 128 mg/dL 30-170 LDL CHOL (test code = 86845-4) 117 mg/dL <=160 VLDL (test code = 5502068666) 26 mg/dL 5-60 Lab Interpretation (test cod e = 88063-4) [facility] (51902)(TOTAL CHOLESTEROL, TRIGLYCERIDES, HDL)2022-10-05 16:54:48* Test Item Value Reference Range Interpretation Comme nts CHOL (test code = 4364685046) 183 mg/dL 120-200 HDL (test code = 7656277018) 40 mg/dL >=50 L HDLC RATIO (test code = 4113781717) 4.6 <=4.5 H TRIG (test code = 3291246345) 128 mg/dL 30-170 LDL CHOL (test code = 40834-9) 117 mg/dL <=160 VLDL (test code = 5354597381) 26 mg/dL 5-60 Lab Interpretation (test cod e = 74725-9) [facility] (75833)(TOTAL CHOLESTEROL, TRIGLYCERIDES, HDL)2022-10-05 16:54:48* Test Item Value Reference Range Interpretation Comme nts CHOL (test code = 1069401428) 183 mg/dL 120-200 HDL (test code = 9186919303) 40 mg/dL >=50 L HDLC RATIO (test code = 8471219261) 4.6 <=4.5 H TRIG (test code = 6614661183) 128 mg/dL 30-170 LDL CHOL (test code = 66113-5) 117 mg/dL <=160 VLDL (test code = 0382038545) 26 mg/dL 5-60 Lab Interpretation (test cod e = 99665-3) [facility] (70216)(TOTAL CHOLESTEROL, TRIGLYCERIDES, HDL)2022-10-05 16:54:48* Test Item Value Reference Range Interpretation Comme nts CHOL (test code = 3109006257) 183 mg/dL 120-200 HDL (test code = 0515681548) 40 mg/dL >=50 L HDLC RATIO (test code = 7754601190) 4.6 <=4.5 H TRIG (test code = 5700544025) 128 mg/dL 30-170 LDL CHOL (test code = 26508-6) 117 mg/dL <=160 VLDL (test code = 4692172226) 26 mg/dL 5-60 Lab Interpretation (test cod e = 61673-0) [facility] (15063)(TOTAL CHOLESTEROL, TRIGLYCERIDES, HDL)2022-10-05 16:54:48* Test Item Value Reference Range Interpretation Comme nts CHOL (test code = 7594926523) 183 mg/dL 120-200 HDL (test code = 4450065892) 40 mg/dL >=50 L HDLC RATIO (test code = 8914985398) 4.6 <=4.5 H TRIG (test code = 2730992180) 128 mg/dL 30-170 LDL CHOL (test code = 34910-1) 117 mg/dL <=160 VLDL (test code = 3199331407) 26 mg/dL 5-60 Lab Interpretation (test cod e = 51196-0) [id number]TOTAL CHOLESTEROL, TRIGLYCERIDES, HDL)2022-10-05 16:54:48* Test Item Value Reference Range Interpretation Comme nts CHOL (test code = 4575272939) 183 mg/dL 120-200 HDL (test code = 5018071714) 40 mg/dL >=50 L HDLC RATIO (test code = 3532174109) 4.6 <=4.5 H TRIG (test code = 7628823725) 128 mg/dL 30-170 LDL CHOL (test code = 48862-6) 117 mg/dL <=160 VLDL (test code = 5356431459) 26 mg/dL 5-60 Lab Interpretation (test cod e = 78936-3) [facility] ([id number])(TOTAL CHOLESTEROL, TRIGLYCERIDES, HDL)2022-10-05 16:54:48* Test Item Value Reference Range Interpretation Comme nts CHOL (test code = 1340900696) 183 mg/dL 120-200 HDL (test code = 5290725122) 40 mg/dL >=50 L HDLC RATIO (test code = 8660882510) 4.6 <=4.5 H TRIG (test code = 5685650154) 128 mg/dL 30-170 LDL CHOL (test code = 84801-2) 117 mg/dL <=160 VLDL (test code = 2925265101) 26 mg/dL 5-60 Lab Interpretation (test cod e = 33951-8) [facility]44186)(TOTAL CHOLESTEROL, TRIGLYCERIDES, HDL)2022-10-05 16:54:48* Test Item Value Reference Range Interpretation Comme nts CHOL (test code = 9631521173) 183 mg/dL 120-200 HDL (test code = 0316133579) 40 mg/dL >=50 L HDLC RATIO (test code = 0643288175) 4.6 <=4.5 H TRIG (test code = 8897276424) 128 mg/dL 30-170 LDL CHOL (test code = 77542-6) 117 mg/dL <=160 VLDL (test code = 4700547165) 26 mg/dL 5-60 Lab Interpretation (test cod e = 17266-6) [facility]C)2022-10-05 15:51:11* Test Item Value Reference Range Interpretation Comme nts HGB A1C (test code = 4548-4) 5.1 % 4.0-5.7 ZAINAB (test code = ZAINAB) Reference RangesNormal: <5.7%Prediabetes: 5.7 - 6.4%Diabetes: > 6.5% Lab Interpretation (test code = 65371-3) [facility]2022-10-05 15:51:11* Test Item Value Reference Range Interpretation Comme nts HGB A1C (test code = 4548-4) 5.1 % 4.0-5.7 ZAINAB (test code = ZAINAB) Reference RangesNormal: <5.7%Prediabetes: 5.7 - 6.4%Diabetes: > 6.5% Lab Interpretation (test code = 47278-7) [facility] 15:51:11* Test Item Value Reference Range Interpretation Comme nts HGB A1C (test code = 4548-4) 5.1 % 4.0-5.7 ZAINAB (test code = ZAINAB) Reference RangesNormal: <5.7%Prediabetes: 5.7 - 6.4%Diabetes: > 6.5% Lab Interpretation (test code = 19044-2) [facility]22-10-05 15:51:11* Test Item Value Reference Range Interpretation Comme nts HGB A1C (test code = 4548-4) 5.1 % 4.0-5.7 ZAINAB (test code = ZAINAB) Reference RangesNormal: <5.7%Prediabetes: 5.7 - 6.4%Diabetes: > 6.5% Lab Interpretation (test code = 42015-3) [facility]-05 15:51:11* Test Item Value Reference Range Interpretation Comme nts HGB A1C (test code = 4548-4) 5.1 % 4.0-5.7 ZAINAB (test code = ZAINAB) Reference RangesNormal: <5.7%Prediabetes: 5.7 - 6.4%Diabetes: > 6.5% Lab Interpretation (test code = 10543-4) [facility]22-10-05 15:51:11* Test Item Value Reference Range Interpretation Comme nts HGB A1C (test code = 4548-4) 5.1 % 4.0-5.7 ZAINAB (test code = ZAINAB) Reference RangesNormal: <5.7%Prediabetes: 5.7 - 6.4%Diabetes: > 6.5% Lab Interpretation (test code = 89046-0) [facility]22-10-05 15:51:11* Test Item Value Reference Range Interpretation Comme nts HGB A1C (test code = 4548-4) 5.1 % 4.0-5.7 ZAINAB (test code = ZAINAB) Reference RangesNormal: <5.7%Prediabetes: 5.7 - 6.4%Diabetes: > 6.5% Lab Interpretation (test code = 22654-3) Normal [facility]2022-10-05 15:51:11* Test Item Value Reference Range Interpretation Comme nts HGB A1C (test code = 4548-4) 5.1 % 4.0-5.7 ZAINAB (test code = ZAINAB) Reference RangesNormal: <5.7%Prediabetes: 5.7 - 6.4%Diabetes: > 6.5% Lab Interpretation (test code = 70504-5) [facility]-10-05 15:51:11* Test Item Value Reference Range Interpretation Comme nts HGB A1C (test code = 4548-4) 5.1 % 4.0-5.7 ZAINAB (test code = ZAINAB) Reference RangesNormal: <5.7%Prediabetes: 5.7 - 6.4%Diabetes: > 6.5% Lab Interpretation (test code = 25089-2) [facility]2022-10-05 15:51:11* Test Item Value Reference Range Interpretation Comme nts HGB A1C (test code = 4548-4) 5.1 % 4.0-5.7 ZAINAB (test code = ZAINAB) Reference RangesNormal: <5.7%Prediabetes: 5.7 - 6.4%Diabetes: > 6.5% Lab Interpretation (test code = 23589-7) [facility]2022-10-05 15:51:11* Test Item Value Reference Range Interpretation Comme nts HGB A1C (test code = 4548-4) 5.1 % 4.0-5.7 ZAINAB (test code = ZAINAB) Reference RangesNormal: <5.7%Prediabetes: 5.7 - 6.4%Diabetes: > 6.5% Lab Interpretation (test code = 79710-8) [facility]2022-10-05 15:51:11* Test Item Value Reference Range Interpretation Comme nts HGB A1C (test code = 4548-4) 5.1 % 4.0-5.7 ZAINAB (test code = ZAINAB) Reference RangesNormal: <5.7%Prediabetes: 5.7 - 6.4%Diabetes: > 6.5% Lab Interpretation (test code = 21438-5) [facility]2022-10-05 15:51:11* Test Item Value Reference Range Interpretation Comme nts HGB A1C (test code = 4548-4) 5.1 % 4.0-5.7 ZAINAB (test code = ZAINAB) Reference RangesNormal: <5.7%Prediabetes: 5.7 - 6.4%Diabetes: > 6.5% Lab Interpretation (test code = 56320-0) [facility]C)2022-10-05 15:51:11* Test Item Value Reference Range Interpretation Comme nts HGB A1C (test code = 4548-4) 5.1 % 4.0-5.7 ZAINAB (test code = ZAINAB) Reference RangesNormal: <5.7%Prediabetes: 5.7 - 6.4%Diabetes: > 6.5% Lab Interpretation (test code = 97884-2) [facility] [id number] 15:20:32* Test Item Value Reference Range Interpretation Comme nts WBC (test code = 6690-2) 6.67 See_Comment [Automated messa ge] The system which generated this result transmitted reference range: 4.30 - 11.10 10*3/?L. The reference range was not used to interpret this result as normal/abnormal. RBC (test code = 789-8) 4.04 See_Comment [Automated messa ge] The system which generated this result transmitted reference range: 3.93 - 5.25 10*6/?L. The reference range was not used to interpret this result as normal/abnormal. HGB (test code = 718-7) 8.9 g/dL 11.6-15.0 L HCT (test code = 4544-3) 30.0 % 35.7-45.2 L MCV (test code = 787-2) 74.3 fL 80.6-95.5 L MCH (test code = 785-6) 22.0 pg 25.9-32.8 L MCHC (test code = 786-4) 29.7 g/dL 31.6-35.1 L RDW-SD (test code = 39891-8) 47.8 fL 39.0-49.9 RDW-CV (test code = 788-0) 18.0 % 12.0-15.5 H PLT (test code = 777-3) 296 See_Comment [Automated ReDigia ge] The system which generated this result transmitted reference range: 166 - 358 10*3/?L. The reference range was not used to interpret this result as normal/abnormal. MPV (test code = 09660-0) 10.7 fL 9.5-12.9 NRBC/100 WBC (test code = 1681824456) 0.0 See_Comment [Automated Argus ssage] The system which generated this result transmitted reference range: 0.0 - 10.0 /100 WBCs. The reference range was not used to interpret this result as normal/abnormal. NRBC x10^3 (test code = 8973945527) See_Comment [Automated ReDigia ge] The system which generated this result transmitted reference range: 10*3/?L. The reference range was not used to interpret this result as normal/abnormal. GRAN MAT (NEUT) % (test code = 770-8) 70.0 % IMM GRAN % (test code = 4199747616) 0.40 % LYMPH % (test code = 736-9) 18.7 % MONO % (test code = 5905-5) 5.7 % EOS % (test code = 713-8) 4.5 % BASO % (test code = 706-2) 0.7 % GRAN MAT x10^3(ANC) (test code = 0020193769) 4.66 10*3/uL 1.88-7.09 IMM GRAN x10^3 (test code = 7439923673) 0.03 10*3/uL 0.00-0.06 LYMPH x10^3 (test code = 731-0) 1.25 10*3/uL 1.32-3.29 L MONO x10^3 (test code = 742-7) 0.38 10*3/uL 0.33-0.92 EOS x10^3 (test code = 711-2) 0.30 10*3/uL 0.03-0.39 BASO x10^3 (test code = 704-7) 0.05 10*3/uL 0.01-0.07 Lab Interpretation (test code = 85798-4) Abnormal [facility] WITH [id number] 15:20:32* Test Item Value Reference Range Interpretation Comme nts WBC (test code = 6690-2) 6.67 See_Comment [Automated messa ge] The system which generated this result transmitted reference range: 4.30 - 11.10 10*3/?L. The reference range was not used to interpret this result as normal/abnormal. RBC (test code = 789-8) 4.04 See_Comment [Automated messa ge] The system which generated this result transmitted reference range: 3.93 - 5.25 10*6/?L. The reference range was not used to interpret this result as normal/abnormal. HGB (test code = 718-7) 8.9 g/dL 11.6-15.0 L HCT (test code = 4544-3) 30.0 % 35.7-45.2 L MCV (test code = 787-2) 74.3 fL 80.6-95.5 L MCH (test code = 785-6) 22.0 pg 25.9-32.8 L MCHC (test code = 786-4) 29.7 g/dL 31.6-35.1 L RDW-SD (test code = 45142-9) 47.8 fL 39.0-49.9 RDW-CV (test code = 788-0) 18.0 % 12.0-15.5 H PLT (test code = 777-3) 296 See_Comment [Automated messa ge] The system which generated this result transmitted reference range: 166 - 358 10*3/?L. The reference range was not used to interpret this result as normal/abnormal. MPV (test code = 95325-7) 10.7 fL 9.5-12.9 NRBC/100 WBC (test code = 0877254945) 0.0 See_Comment [Automated me ssage] The system which generated this result transmitted reference range: 0.0 - 10.0 /100 WBCs. The reference range was not used to interpret this result as normal/abnormal. NRBC x10^3 (test code = 1027378408) See_Comment [Automated messa ge] The system which generated this result transmitted reference range: 10*3/?L. The reference range was not used to interpret this result as normal/abnormal. GRAN MAT (NEUT) % (test code = 770-8) 70.0 % IMM GRAN % (test code = 4354571492) 0.40 % LYMPH % (test code = 736-9) 18.7 % MONO % (test code = 5905-5) 5.7 % EOS % (test code = 713-8) 4.5 % BASO % (test code = 706-2) 0.7 % GRAN MAT x10^3(ANC) (test code = 7689450327) 4.66 10*3/uL 1.88-7.09 IMM GRAN x10^3 (test code = 0926307285) 0.03 10*3/uL 0.00-0.06 LYMPH x10^3 (test code = 731-0) 1.25 10*3/uL 1.32-3.29 L MONO x10^3 (test code = 742-7) 0.38 10*3/uL 0.33-0.92 EOS x10^3 (test code = 711-2) 0.30 10*3/uL 0.03-0.39 BASO x10^3 (test code = 704-7) 0.05 10*3/uL 0.01-0.07 Lab Interpretation (test code = 85025-0) Abnormal [facility] WITH [id number] 15:20:32* Test Item Value Reference Range Interpretation Comme nts WBC (test code = 6690-2) 6.67 See_Comment [Automated messa ge] The system which generated this result transmitted reference range: 4.30 - 11.10 10*3/?L. The reference range was not used to interpret this result as normal/abnormal. RBC (test code = 789-8) 4.04 See_Comment [Automated ReDigia ge] The system which generated this result transmitted reference range: 3.93 - 5.25 10*6/?L. The reference range was not used to interpret this result as normal/abnormal. HGB (test code = 718-7) 8.9 g/dL 11.6-15.0 L HCT (test code = 4544-3) 30.0 % 35.7-45.2 L MCV (test code = 787-2) 74.3 fL 80.6-95.5 L MCH (test code = 785-6) 22.0 pg 25.9-32.8 L MCHC (test code = 786-4) 29.7 g/dL 31.6-35.1 L RDW-SD (test code = 29794-9) 47.8 fL 39.0-49.9 RDW-CV (test code = 788-0) 18.0 % 12.0-15.5 H PLT (test code = 777-3) 296 See_Comment [Automated ReDigia ge] The system which generated this result transmitted reference range: 166 - 358 10*3/?L. The reference range was not used to interpret this result as normal/abnormal. MPV (test code = 21831-6) 10.7 fL 9.5-12.9 NRBC/100 WBC (test code = 3323365084) 0.0 See_Comment [Automated Argus ssage] The system which generated this result transmitted reference range: 0.0 - 10.0 /100 WBCs. The reference range was not used to interpret this result as normal/abnormal. NRBC x10^3 (test code = 8694778487) See_Comment [Automated ReDigia ge] The system which generated this result transmitted reference range: 10*3/?L. The reference range was not used to interpret this result as normal/abnormal. GRAN MAT (NEUT) % (test code = 770-8) 70.0 % IMM GRAN % (test code = 2089276551) 0.40 % LYMPH % (test code = 736-9) 18.7 % MONO % (test code = 5905-5) 5.7 % EOS % (test code = 713-8) 4.5 % BASO % (test code = 706-2) 0.7 % GRAN MAT x10^3(ANC) (test code = 4400164568) 4.66 10*3/uL 1.88-7.09 IMM GRAN x10^3 (test code = 7567801244) 0.03 10*3/uL 0.00-0.06 LYMPH x10^3 (test code = 731-0) 1.25 10*3/uL 1.32-3.29 L MONO x10^3 (test code = 742-7) 0.38 10*3/uL 0.33-0.92 EOS x10^3 (test code = 711-2) 0.30 10*3/uL 0.03-0.39 BASO x10^3 (test code = 704-7) 0.05 10*3/uL 0.01-0.07 Lab Interpretation (test code = 62052-4) Abnormal [facility]2023-06-14 17:27:33* Test Item Value Reference Range Interpretation Comme nts Norene (test code = 3063003365) 0.3 mmol/L 0.6-1.2 L ZAINAB (test code = ZAINAB) Toxic Range: ? Greater than 1.2 mmol/L Lab Interpretation (test code = 23096-6) Abnormal [facility]2023-06-14 17:27:33* Test Item Value Reference Range Interpretation Comme nts Norene (test code = 1183861167) 0.3 mmol/L 0.6-1.2 L ZAINAB (test code = ZAINAB) Toxic Range: ? Greater than 1.2 mmol/L Lab Interpretation (test code = 82971-2) Abnormal [facility]2023-06-14 17:27:33* Test Item Value Reference Range Interpretation Comme nts Norene (test code = 9842982547) 0.3 mmol/L 0.6-1.2 L ZAINAB (test code = ZAINAB) Toxic Range: ? Greater than 1.2 mmol/L Lab Interpretation (test code = 58719-7) Abnormal [facility]2023-06-14 17:27:33* Test Item Value Reference Range Interpretation Comme nts Norene (test code = 5985975533) 0.3 mmol/L 0.6-1.2 L ZAINAB (test code = ZAINAB) Toxic Range: ? Greater than 1.2 mmol/L Lab Interpretation (test code = 45310-0) Abnormal [facility]2023-06-14 17:27:33* Test Item Value Reference Range Interpretation Comme nts Norene (test code = 7896670136) 0.3 mmol/L 0.6-1.2 L ZAINAB (test code = ZAINAB) Toxic Range: ? Greater than 1.2 mmol/L Lab Interpretation (test code = 22313-7) Abnormal [facility]2023-06-14 17:27:33* Test Item Value Reference Range Interpretation Comme nts Norene (test code = 5434020072) 0.3 mmol/L 0.6-1.2 L ZAINAB (test code = ZAINAB) Toxic Range: ? Greater than 1.2 mmol/L Lab Interpretation (test code = 84494-0) Abnormal [facility]2023-06-14 17:27:33* Test Item Value Reference Range Interpretation Comme nts Norene (test code = 2453787533) 0.3 mmol/L 0.6-1.2 L ZAINAB (test code = ZAINAB) Toxic Range: ? Greater than 1.2 mmol/L Lab Interpretation (test code = 84401-3) Abnormal [facility]2023-06-14 17:27:33* Test Item Value Reference Range Interpretation Comme nts Norene (test code = 1128236938) 0.3 mmol/L 0.6-1.2 L ZAINAB (test code = ZAINAB) Toxic Range: ? Greater than 1.2 mmol/L Lab Interpretation (test code = 76088-6) Abnormal [facility]2023-06-14 17:27:33* Test Item Value Reference Range Interpretation Comme nts Norene (test code = 0827382524) 0.3 mmol/L 0.6-1.2 L ZAINAB (test code = ZAINAB) Toxic Range: ? Greater than 1.2 mmol/L Lab Interpretation (test code = 39150-7) Abnormal [facility]2023-06-14 17:27:33* Test Item Value Reference Range Interpretation Comme nts Norene (test code = 1085882758) 0.3 mmol/L 0.6-1.2 L ZAINAB (test code = ZAINAB) Toxic Range: ? Greater than 1.2 mmol/L Lab Interpretation (test code = 36993-6) Abnormal [facility]2023-06-14 17:27:33* Test Item Value Reference Range Interpretation Comme nts Norene (test code = 6568295009) 0.3 mmol/L 0.6-1.2 L ZAINAB (test code = ZAINAB) Toxic Range: ? Greater than 1.2 mmol/L Lab Interpretation (test code = 50448-3) Abnormal [facility]2023-06-14 17:27:33* Test Item Value Reference Range Interpretation Comme nts Norene (test code = 6445971099) 0.3 mmol/L 0.6-1.2 L ZAINAB (test code = ZAINAB) Toxic Range: ? Greater than 1.2 mmol/L Lab Interpretation (test code = 02559-0) Abnormal [facility] W/AUTO DIFF WITH [id number] 06:12:05* Test Item Value Reference Range Interpretation Comme nts WBC (test code = 1001) 7.4 K/UL 3.5-11.0 RBC (test code = 1002) 4.13 M/UL 3.80-5.40 HEMOGLOBIN (test code = 1003) 9.2 G/DL 11.5-15.5 L HEMATOCRIT (test code = 1004) 29.3 % 34.0-45.0 L MCV (test code = 1005) 70.9 fL 80.0-99.0 L MCH (test code = 1006) 22.3 PG 25.0-33.0 L MCHC (test code = 1007) 31.4 G/DL 31.0-36.0 RDW (test code = 1038) 20.3 % 11.5-15.0 H NEUTROPHILS (test code = 1008) 65.4 % LYMPHOCYTES (test code = 1010) 22.0 % MONOCYTES (test code = 1011) 4.9 % EOSINOPHILS (test code = 1012) 6.6 % BASOPHILS (test code = 1013) 0.7 % IMMATURE GRANULOCYTES (test code = 1036) 0.4 % NUCLEATED RBCS (test code = 1065) 0.0 /100 WBC'S See_Comment [Automated messa ge] The system which generated this result transmitted reference range: 0.0. The reference range was not used to interpret this result as normal/abnormal. PLATELET COUNT (test code = 1015) 304 K/UL 130-400 ABSOLUTE NEUTROPHILS (test code = 1066) 4.86 K/UL 1.50-7.50 ABSOLUTE LYMPHOCYTES (test code = 1067) 1.63 K/UL 1.00-4.00 ABSOLUTE MONOCYTES (test code = 1068) 0.36 K/UL 0.20-1.00 ABSOLUTE EOSINOPHILS (test code = 1040) 0.49 K/UL 0.00-0.50 ABSOLUTE BASOPHILS (test code = 1069) 0.05 K/UL 0.00-0.20 ABS IMMATURE GRANULOCYTES (test code = 1020) 0.03 K/UL 0.00-0.10 ABS NUCLEATED RBCS (test code = 86020) 0.00 K/UL 0.00-0.11 RETICULOCYTE WITH [id number] 06:12:05* Test Item Value Reference Range Interpretation Comme nts RETICULOCYTE COUNT (test code = 1018) 2.50 % 0.80-2.40 H ABSOLUTE RETICULOCYTE (test code = 95329) 103.3 K/UL 32.0-105.0 [facility] has important pathology staff changes effective 04/12/2022. New pathology staff will provide uninterrupted, excellent patient care and clinical consultation. See URL: [email or web address]. UNLESS OTHERWISE INDICATED, ALL TESTING PERFORMED AT [facility] [address] [place] [address], [place] [address] ALUMINUM SIDING INSTALLER: CHARLA HERNANDEZ M.D. CLIA NUMBER [id number] [facility] [place]. [id number] YAZMIN NON-REFLEX TO [id number] 05:55:49* Test Item Value Reference Range Interpretation Comme nts ANTI-NUCLEAR ANTIBODIES (test code = 3506) NEGATIVE NEGATIVE METHODOLOGY IS I NDIRECT IMMUNOFLUORESCENT ASSAY (IFA) WITH HUMAN EPITHELIAL (HEP-2) CELL LINE SUBSTRATE. FOLATE, [id number] 12:42:51* Test Item Value Reference Range Interpretation Comme [facility] HEMATOCRIT (test code = 1004) 28.7 % [...] . . . NG/ML >1504 TSH, THIRD [id number] 11:05:54* Test Item Value Reference Range Interpretation Comme [facility] TSH, THIRD GENERATION (test code = 2821) 1.310 UIU/ML 0.400-4.100 VITAMIN [id number] 11:05:54* Test Item Value Reference Range Interpretation Comme [facility] VITAMIN B-12 (test code = 2840) 436 PG/ML 200-950 VITAMIN D, 25 [id number] 11:03:45* Test Item Value Reference Range Interpretation Comme [facility] VITAMIN D, 25 OH (test code = [...] . . . . . NG/ML 30-100 [facility] has important pathology staff changes effective 04/12/2022. New pathology staff will provide uninterrupted, excellent patient care and clinical consultation. See URL: [email or web address]. UNLESS OTHERWISE INDICATED, ALL TESTING PERFORMED AT [facility] [address] [place] [address] ALUMINUM SIDING INSTALLER: CHARLA HERNANDEZ M.D. CLIA NUMBER [id number] [facility] [place] [place]. [id number] URIC [id number] 05:28:57* Test Item Value Reference Range Interpretation Comme nts URIC ACID (test code = 2233) 6.7 MG/DL 2.7-6.1 H COMPREHENSIVE METABOLIC [id number] 05:28:57* Test Item Value Reference Range Interpretation Comme nts GLUCOSE (test code = 2217) 103 MG/DL 70-99 H BUN (test code = 2208) 9 MG/DL 6-20 CREATININE (test code = 2214) 0.72 MG/DL 0.60-1.30 eGFR (2020 CKD-EPI) (test code = 59826) 106 ML/MIN/1.73 >60 CALC BUN/CREAT (test code = 2235) 13 RATIO 6-28 SODIUM (test code = 2231) 139 MEQ/L 133-146 POTASSIUM (test code = 2228) 4.5 MEQ/L 3.5-5.4 CHLORIDE (test code = 2215) 104 MEQ/L 95-107 CARBON DIOXIDE (test code = 2206) 24 MEQ/L 19-31 CALCIUM (test code = 2209) 9.5 MG/DL 8.5-10.5 PROTEIN, TOTAL (test code = 2229) 6.5 G/DL 6.1-8.3 ALBUMIN (test code = 2201) 4.4 G/DL 3.5-5.2 CALC GLOBULIN (test code = 2240) 2.1 G/DL 1.9-3.7 CALC A/G RATIO (test code = 2234) 2.1 RATIO 1.0-2.6 BILIRUBIN, TOTAL (test code = 2207) <0.2 MG/DL See_Comment [Automated me ssage] The system which generated this result transmitted reference range: <=1.2. The reference range was not used to interpret this result as normal/abnormal. ALKALINE PHOSPHATASE (test code = 2204) 129 U/L 40-115 H AST (test code = 2218) 21 U/L 9-40 ALT (test code = 2219) 26 U/L 5-40 LIPID [id number] 05:28:57* Test Item Value Reference Range Interpretation [...] SPECIMENS. FOR MOREINFORMATION, SEE CLIENT ANNOUNCEMENT AT [email or web address] RATIO LDL/HDL (test code = 2238) 3.04 RATIO <3.22 HEMOGLOBIN [id number] 02:54:46* Test Item Value Reference Range Interpretation Comme nts HEMOGLOBIN A1c (test code = 50454) 5.6 % 4.2-5.6 CBC W/AUTO DIFF WITH [id number] 01:58:18* Test Item Value Reference Range Interpretation [...] = 1065) 0.0 /100 WBC'S See_Comment [Automated messa ge] The system which generated this result [...] 0.00-0.10 ABS NUCLEATED RBCS (test code = 50028) 0.00 K/UL 0.00-0.11 [id number] 20:05:22* Test Item Value Reference Range Interpretation Comme nts Norene (test code = 0078796113) 1.1 mmol/L 0.6-1.2 ZAINAB (test code = ZAINAB) Toxic Range: ? Greater than 1.2 mmol/L Lab Interpretation (test code = 80691-7) [facility]2023-01-04 20:05:22* Test Item Value Reference Range Interpretation Comme nts Norene (test code = 9715634038) 1.1 mmol/L 0.6-1.2 ZAINAB (test code = ZAINAB) Toxic Range: ? Greater than 1.2 mmol/L Lab Interpretation (test code = 84196-3) [facility]2023-01-04 20:05:22* Test Item Value Reference Range Interpretation Comme nts Norene (test code = 7432043274) 1.1 mmol/L 0.6-1.2 ZAINAB (test code = ZAINAB) Toxic Range: ? Greater than 1.2 mmol/L Lab Interpretation (test code = 43029-7) [facility]2023-01-04 20:05:22* Test Item Value Reference Range Interpretation Comme nts [place]ne (test code = 1064617671) 1.1 mmol/L 0.6-1.2 ZAINAB (test code = ZAINAB) Toxic Range: ? Greater than 1.2 mmol/L Lab Interpretation (test code = 63259-8) [place] [address]-01-04 20:05:22* Test Item Value Reference Range Interpretation Comme nts N[place]ne (test code = 2002966412) 1.1 mmol/L 0.6-1.2 ZAINAB (test code = ZAINAB) Toxic Range: ? Greater than 1.2 mmol/L Lab Interpretation (test code = 28399-0) [address]01-04 20:05:22* Test Item Value Reference Range Interpretation Comme nts [place]ne (test code = 6801633336) 1.1 mmol/L 0.6-1.2 ZAINAB (test code = ZAINAB) Toxic Range: ? Greater than 1.2 mmol/L Lab Interpretation (test code = 00367-5) [address]01-04 20:05:22* Test Item Value Reference Range Interpretation Comme nts [place] (test code = 0545880409) 1.1 mmol/L 0.6-1.2 ZAINAB (test code = ZAINAB) Toxic Range: ? Greater than 1.2 mmol/L Lab Interpretation (test code = 25911-2) [address]01-04 20:05:22* Test Item Value Reference Range Interpretation Comme nts [place] (test code = 8741727660) 1.1 mmol/L 0.6-1.2 ZAINAB (test code = ZAINAB) Toxic Range: ? Greater than 1.2 mmol/L Lab Interpretation (test code = 96986-0) [address]01-04 20:05:22* Test Item Value Reference Range Interpretation Comme nts [place] (test code = 2624530044) 1.1 mmol/L 0.6-1.2 ZAINAB (test code = ZAINAB) Toxic Range: ? Greater than 1.2 mmol/L Lab Interpretation (test code = 89823-2) [address]01-04 20:05:22* Test Item Value Reference Range Interpretation Comme nts Norene (test code = 8732541642) 1.1 mmol/L 0.6-1.2 ZAINAB (test code = ZAINAB) Toxic Range: ? Greater than 1.2 mmol/L Lab Interpretation (test code = 42523-7) [facility]2018-07-20 07:27:00* Test Item Value Reference Range Interpretation Comme nts TRIGLYCERIDES (test code = TRIG) 143 MG/DL TRIGLYCERIDES REFERENCE RANGE:Normal: <150 mg/dLBorderline High: 150-199 mg/dLHigh: 200-499 mg/dLVery High: >=500 mg/dL CHOLESTEROL (test code = CHOL) 190 MG/DL <200 HDL CHOLESTEROL (test code = HDL) 41 MG/DL 40-59 N LIPOPROTEIN LDL (test code = LDL) 144 MG/DL 0-99 H OPTIMAL......... <100 mg/dLNEAR OPTIMAL/ABOVE OPTIMAL.........100-12 9 mg/dL BORDERLINE HIGH.........130-159 mg/dL HIGH.........160-189 mg/dL VERY HIGH.........>/= 190 mg/dL Comments to Privacy Attorney: ADD TO AM LABSLIPID PROFILE (CORONARY RISK)2018-07-20 07:17:00* Test Item Value Reference Range Interpretation Comme nts TRIGLYCERIDES (test code = TRIG) 143 MG/DL TRIGLYCERIDES REFERENCE RANGE:Normal: <150 mg/dLBorderline High: 150-199 mg/dLHigh: 200-499 mg/dLVery High: >=500 mg/dL CHOLESTEROL (test code = CHOL) 190 MG/DL <200 HDL CHOLESTEROL (test code = HDL) 41 MG/DL 40-59 N LIPOPROTEIN LDL (test code = LDL) MG/DL 0-99 Comments to Privacy Attorney: ADD TO AM LABSPROTHROMBIN [id number] 06:24:00* Test Item Value Reference Range Interpretation Comme nts PROTHROMBIN TIME PATIENT (test code = PTP) 9.9 SECONDS 9.6-11.6 N INTERNATIONAL NORMAL RATIO (test code = INR) 0.9 0.8-1.1 N The INR is to be used only for monitoring oral anticoagulanttherap y. INDICATION INR VALUE -------1. Prophylaxis, deep venous thrombosis, including high risk surgery. 2.0 - 3.0 2. Prophylaxis, deep venous thrombosis, hip surgery, treatment for deep venous thrombosis or pulmonary prevention of systemic embolism in patients with valvular heart disease, atrial fibrillation, tissue heart valve, or acute myocardial infarction. 2.0 - 3.0 3. Mechanical prosthesis heart valves, recurrent systemic embolism. 3.0 - 4.5 Comments to Privacy Attorney: NURSE WILL BRING SPECIMEN TO LABPTT ACTIVATED 2018-07-20 06:24:00* Test Item Value Reference Range Interpretation Comme nts PTT ACTIVATED (test code = APTT) 29.3 SECONDS 22.0-33.0 N Comments to Privacy Attorney: NURSE WILL BRING SPECIMEN TO LABBASIC METABOLIC PANEL 2018-07-20 06:13:00* Test Item Value Reference Range Interpretation Comme nts SODIUM (test code = NA) 141 MMOL/L 137-145 N POTASSIUM (test code = K) 3.8 MMOL/L 3.5-5.1 N CHLORIDE (test code = CL) 104 MMOL/L 98-107 N CARBON DIOXIDE (test code = CO2) 28 MMOL/L 22-30 N GLUCOSE (test code = GLU) 106 MG/DL 74-106 N BLOOD UREA NITROGEN (test code = BUN) 11 MG/DL 7-17 N GLOMERULAR FILTRATION RATE (test code = GFR) > 60 Reporting units: ml/min/1.73 m2 (Modified MDRD Formula)Reference Range: > or = 60 ml/min/1.73 m2 CREATININE (test code = CREAT) 0.70 MG/DL 0.52-1.04 N CALCIUM (test code = CA) 9.6 MG/DL 8.4-10.2 N Comments to Privacy Attorney: NURSE WILL BRING SPECIMEN TO LAB Comments to Privacy Attorney: NURSE WILL BRING SPECIMEN TO [id number] 06:13:00* Test Item Value Reference Range Interpretation Comme nts MAGNESIUM (test code = MAG) 2.2 MG/DL 1.6-2.3 N Comments to Privacy Attorney: NURSE WILL BRING SPECIMEN TO LAB Comments to Privacy Attorney: NURSE WILL BRING SPECIMEN TO LABCBC W/AUTO [id number] 06:02:00 * Test Item Value Reference Range Interpretation Comme nts WHITE BLOOD CELL (test code = WBC) 9.8 K/MM3 3.8-9.8 N RED BLOOD CELL (test code = RBC) 4.33 M/MM3 3.58-4.97 N HEMOGLOBIN (test code = HGB) 11.9 G/DL 11.2-14.9 N HEMATOCRIT (test code = HCT) 36.3 % 33.2-43.5 N MEAN CELL VOLUME (test code = MCV) 84 fL 80.7-99.1 N MEAN CELL HGB (test code = MCH) 27.5 pg 27.0-34.1 N MEAN CELL HGB CONCETRATION (test code = MCHC) 32.8 % 32.2-35.7 N RED CELL DISTRIBUTION WIDTH (test code = RDW) 14.6 % 12.1-15.2 N PLATELET COUNT (test code = PLT) 262 K/MM3 129-368 N MEAN PLATELET VOLUME (test c ode = MPV) 11.9 fl 7.4-10.4 H NEUTROPHIL % (test code = NT%) 64.6 % 43-75 N IMMATURE GRANULOCYTE % (test code = IG%) 0.6 % 0.0-2.0 N LYMPHOCYTE % (test code = LY%) 24.3 % 14-44 N MONOCYTE % (test code = MO%) 6.7 % 4-13 N EOSINOPHIL % (test code = EO%) 3.2 % 0-6 N BASOPHIL % (test code = BA%) 0.6 % 0-2 N NUCLEATED RBC % (test code = NRBC%) 0.0 % 0-1.0 N NEUTROPHIL # (test code = NT#) 6.31 K/mm3 2.0-7.6 N IMMATURE GRANULOCYTE # (test code = IG#) 0.06 x10 3/uL 0-0.03 H LYMPHOCYTE # (test code = LY#) 2.38 K/mm3 1.0-3.8 N MONOCYTE # (test code = MO#) 0.66 K/mm3 0.1-0.8 N EOSINOPHIL # (test code = EO#) 0.31 K/mm3 0.0-0.2 H BASOPHIL # (test code = BA#) 0.06 K/mm3 0.0-0.2 N NUCLEATED RBC # (test code = NRBC#) 0.00 K/mm3 0.0-0.1 N Notes Date/Time Note Provider Source 2023-03-09 09:11:36 4GOHdYXOCl4bgSSgnIRO SmLKxx8SPpenC IBscha0qBPFsRl/AxEauAKY7szqMr0t28 07-03-25T09:11:36 I called patient to relay her GI provider's msg. Patient understands and asked if I could send last order for iron infusion to show her PCP so it can be done thru their office. Last order was sent to patient's MyChart as per her request. 30670-7Nocwpmldf encounter IggvBR7875-65-43B03:20:32Telephon e encounter NoteTXT1.2.840.111404.1.13.104.2. 7.2.753301|[id number] for patient orrg17153-0FocmTIGJBVRTQBUGpndpci ed C-CDA narrative qsfy696832302Yytbhdh L Allen RNUT[address] RdraHywtqixvgKuyxsiornRUVV0870772 969XVIECNVBCXPDOTWRWBPZKP5619-11- 26T09:20:321.2.840.225985.1.72.3. 15|1.2.840.993496.1.13.104.2.7.2. [id number] Kath Westbrook RN [facility] 2023-03-09 08:51:07 wEMKT0xp+faz3IcCjYTj BI2xle0Mf/QmJ tldo8zHaAeDpziO4MmkDkXV/iRXSBfP44 07-03-25T08:51:07 Antony chase I would but I think her PCP should be able to do this and because of previous issues with the order will let them handle it. It should be possible for PCP to do it if they put in a little effort 97160-6Xyesirwij encounter FepuZA6456-70-59B00:52:03Telephon e encounter NoteTXT1.2.840.119557.1.13.104.2. 7.2.077193|[id number] for patient ssbz21297-1ZoovRPKRRTCDEZBDygqknr ed C-CDA narrative text[address] ErxyEoozrbuflRtaowelukQYZL3741321 466PLHHFXVNQBZUUOXETKNLGN2013-05- 26T08:52:031.2.840.670565.1.72.3. 15|1.2.840.165724.1.13.104.2.7.2. [id number] [facility] 2023-03-08 16:20:43 7/td8NL7wb0bZiQ50QAA Ds/9IDfkwK7ZU OytjpYnd3DPzAnhczMnc9iahZYoeEXs96 07-03-24T16:20:43 I called patient who stated she received a chart msg from Dr. Cordero stating her iron was low and recommended she take infusion. Patient needs another referral for the iron infusion at [facility]. Patient stated her PCP has no clue on how to order infusion. Patient states GI provider did put in the last order that was done at [facility].11/23/22: Order for MONOFERRIC infusion sent to [facility], fax # [phone]. Fax was confirmed as received. 43721-8Gvklmlldv encounter YrneXN8228-58-97V23:42:41Telephon e encounter NoteTXT1.2.840.433057.1.13.104.2. 7.2.672860|[id number] for patient bsan16502-9KcwqHLAENXGDLSMFndxjgp ed C-CDA narrative ywvx396055813Nwzcyhm L Allen RN[address]TXTX[address] 508YKSZISWUDTJHOIFGVMTCLK8164-65- 25T16:42:411.2.840.744389.1.72.3. 15|1.2.840.358148.1.13.104.2.7.2. 727879_[id number] Kath Karel Westbrook [facility] 2023-03-08 15:42:27 fmIRi93wxvZqQN1kVlHU abnTfFUjoRe18 mIUz8oxaeGhW0LzPlX+qJUCZ1XGgJFl36 07-03-24T15:42:27 Shivani Schuler is a 47 year old femalePt is calling requesting for referral to be placed to [facility] in regards to getting iron infusion done. Please call the pt to discuss. Please advise. 44905-1Ntbguzjpy encounter MoewPE7460-87-20V79:45:39Telephon e encounter NoteTXT1.2.840.376449.1.13.104.2. 7.2.505762|[id number] for patient tkjc69358-2IuguDCPYSXAZQIHUzsqahb ed C-CDA narrative ydyr053392847Keosgnwaie R Lazard[address] 898UUJLQGZWHPLLLUXYDIDBGH9034-05- 25T15:45:391.2.840.017179.1.72.3. 15|1.2.840.335291.1.13.104.2.7.2. 727879_[id number] Daxa Scott [facility] 2023-02-15 10:30:00 lNNiVTmafpSmTUFWeQ8P yZuWdYJoz13Kd JHdNEYg+xeuForzcunSUhy4hDPabV2f47 07-03-03T10:30:00 Images from the original note were not included.Venipuncture collection performed by clean technique on the right anticubitus and back of left hand. Total of 2 attempts were made. Slight pressure and a bandage/dressing were applied to the site(s). The patient experienced no complications. The following specimens were processed according to instructions and sent to [facility] laboratories per lab order on 02/15/2023:LT BLUESST 1REDLAVPPTDK GREEN (LiHep)DK GREEN (SodH)GRAYDK BLUE (K2)DK BLUE (S)ACDBlood CultureNIPT/NTD 96650-8Medtv SbgrSU3057-05-26J26:31:50Nurse NoteTXT1.2.840.315058.1.13.104.2. 7.2.888076|[id number] for patient vmne93721-5Ykvmj NoteLNNARRATIVEFormatted C-CDA narrative textUT[address] FjcuPcwdhsyavYjnqrkoytOTQZ6402828 913SKKMBARRUDMLNOKZQCLGGV5688-79- 04T10:31:501.2.840.322586.1.72.3. 15|1.2.840.421360.1.13.104.2.7.2. 727879_[id number] [facility] 2023-01-12 21:52:03 msK5wNS4r6zCXTy2cqcf 2r206zdjd8Jhj oSsFz5ytfdUAvyL5KGwdMpg7wpD/lIf20 03-02-01T21:52:03 Dr. Cordero,Please call patient and see how we can help. ED precautions if worsening symptoms.Sreeram 41743-1Ugtcqutzx encounter KyypCG0671-15-11X42:52:03Telephon e encounter NoteTXT1.2.840.032818.1.13.104.2. 7.2.708913|[id number] for patient vjvs85270-2VllyALBGPKGSIPBZsgnbbs ed C-CDA narrative textIM-GASTROENTEROLOGY STAFFIM-GASTROENTEROLOGY STAFF[address] YjjeLgmdnfilaBdtuosodwKDIJ5079916 852MWKVIOBICAWNITTDZLZYEG8388-97- 01T21:52:031.2.840.877614.1.72.3. 15|1.2.840.815303.1.13.104.2.7.2. 727879_[id number] IM-GASTROENTEROLOGY STAFF [facility] 2022-10-19 08:30:00 rl94TxsmDuxi9hJHS8A3 YJOI68bsqkV8O 5s8AhmnOKP6ZQoLZEqrMiVONrwsFcPO97 04-11-06T08:30:00 Images from the original note were not included.Venipuncture collection performed by clean technique on the left anticubitus. Total of 1 attempts were made. Slight pressure and a bandage/dressing were applied to the site(s). The patient experienced no complications. The following specimens were processed according to instructions and sent to [facility] laboratories LT BLUE Lt Green SST 2 RED LAV PPT DK GREEN (L) DK GREEN (S)/// Fibrosure set BLUE,SST & LAV SUE DK BLUE (K2) DK BLUE (S) ACD RST BLOOD CULTURE NIPT or ALLOSURE VERIFYNOW URINE URINE CULTURE APTIMA URINE STOOL Monogram Z plasma preservative tube (call lab for tube)ARUP Vasoactive Intestinal Peptide (call lab for tube)ARUP 26459-6Ayqdg UceoCW2227-40-32O24:36:26Nurse NoteTXT1.2.840.470220.1.13.104.2. 7.2.567337|[id number] for patient zfbh43930-5Zklev BxbgSW112714446Ltimwec Karel [address]TX[address] 571REHDDIUCRTJMMKOXYQDTZY0106-40- 07T08:36:261.2.840.142006.1.72.3. 15|1.2.840.792018.1.13.104.2.7.2. 727879_[id number] Samantha Rosales [facility] 2022-10-05 10:15:00 gwFiwQGifK5aFHospxAo m7CNhdPcZAs56 nMu5qBBrSNwz2n4nf4Xa5xiJZEOjS5a44 05-10-23T10:15:00 Images from the original note were not included.Venipuncture collection performed by clean technique on the left anticubitus. Total of 1 attempts were made. Slight pressure and a bandage/dressing were applied to the site(s). The patient experienced no complications. The following specimens were processed according to instructions and sent to [facility] laboratories per lab order on 10/05/2022: LT BLUE SST 1 RED LAV 2 PPT DK GREEN (LiHep) DK GREEN (SodH) SUE DK BLUE (K2) DK BLUE (S) ACD Blood Culture NIPT/NTD 26269-2Uuxcb CgomGG4971-82-65C10:17:14Nurse NoteTXT1.2.840.523290.1.13.104.2. 7.2.224606|[id number] for patient ryqe21596-3Vmzio Note[address] 891UMEHHHCTCEEJXHXPHKSPRZ3127-02- 24T10:17:141.2.840.001476.1.72.3. 15|1.2.840.562319.1.13.104.2.7.2. 727879_[id number] [facility] 2018-07-20 06:55:00 JIgmlplmhua66925202X AFGSAZocQG/aF uSXlqmAiCLK2marx0JEExcKJcoDfpy9IR zD4UvTssQu7lhAYR86134-28-03I01:55 :[id number] [place] [address] PATIENT NAME: SHIVANI SCHULER ADMIT DATE: 07/20/18ACCOUNT NO: [id number] ROOM NO: AGE: 43 REPORT TYPE: CARDIAC CATHETERIZATION REPORT SEX: F ADMITTING PHYSICIAN: ATTENDING PHYSICIAN:Thea Harper MD PROCEDURE DATE: 07/20/2018 PAINTING AND COATING WORKER: Thea Harper MD TITLE OF THE PROCEDURE: [...] common femoral artery area for localanesthesia. A 6-Azeri sheath was placed in the right common [...] no complications. [facility] later on today on medical therapy PATIENT NAME: SHIVANI SCHULER and risk factor modification. Dictated By: Thea Harper MD WT: CATH:Saleem.CHON/KIAN/NTSDD: 07/20/2018 06:55:03DT: 07/20/2018 07:17:37Conf#: [id number]/DID#: [id number] Authenticated by Thea Harper MD On 07/20/2018 08:15:22 AM at 0815 PATIENT NAME: SHIVANI SCHULER Dxgp5447-73-07U68:17:00Z.WMK97495 608-0036AVAvailable for patient ebsiVKAVDEGLQVULZW9089-85-56T72:1 5:56 [facility] 2018-07-20 06:06:00 SCracqpplux76710728u JifST61mXfqrI 5zjYgV8LGfio5BO3GRmqqBiIUZdLOSJRi +ani+AtsBeEp6DOAW8487-14-99K53:06 :[id number] [place] [id number] PATIENT NAME: SHIVANI SCHULER ADMIT DATE: 07/20/18ACCOUNT NO: [id number] ROOM NO: AGE: 43 REPORT TYPE: ELECTROCARDIOGRAM SEX: F ADMITTING PHYSICIAN: ATTENDING PHYSICIAN:Thea Harper MD Order:[id number] Reason : CAD Test Date/Time Stamp:SunJul 20 [...] AM Referred By: Thea Harper Confirmed by:THEA HAREPR at 0921 PATIENT NAME: SHIVANI SCHULER . JWJ79555752-1419KQShscmkzrx for patient jzfhKLELYKPSTQGVYW5807-82-94C24:2 2:04 [facility] 2018-07-19 18:55:00 QOqzcfstvff21245995p Fi9MQSJcGk3sh NYAcvaYY3qsGgXu1GPeB7Si07LQlubJrm zX20l0eFINFdSNi2X0923-14-21B62:55 :[id number] [place] [address] PATIENT NAME: SHIVANI SCHULER ADMIT DATE: 07/20/18ACCOUNT NO: [id number] ROOM NO: AGE: 43 REPORT TYPE: HISTORY AND PHYSICAL SEX: F ADMITTING PHYSICIAN: ATTENDING PHYSICIAN:Thea Harper MD ADMISSION DATE: 07/20/2018 PAINTING AND COATING WORKER: Thea Harper MD REASON FOR ADMISSION: Chest [...] MD WT: HP:TRAVIS/KIAN/RIGOBERTODD: 07/19/2018 18:55:38DT: 07/19/2018 19:52:26Conf#: [id number]/DID#: [id number] by Thea Harper MD On 07/25/2018 07:20:46 AM at 0721 PATIENT NAME: SHIVANI SCHULER and physical eccgepnhcer2300-46-22G99:52:00Z. [id number] for patient zzecWHOPCSTLERJYMJ9406-59-06Y41:2 1:22 [facility]"
[2023-03-09 22:50] LABS: Absolute Lymphocytes (CBC) 1.9 K/uL (0.7-4.9); Lymphocytes % 18.4 % (15.3-44.8); MCV 77.2 fL (80-100); MPV 8.6 fL (7.6-11.3); Platelets 245 thou/uL (152-406)
[2023-03-09 23:00] LABS: Protime INR 0.94
[2023-03-09 23:07] LABS: SARS-CoV-2 Antigen Rapid Res Negative (Negative)
[2023-03-09 23:10] LABS: ALT/SGPT 33 U/L (13-56); AST/SGOT 15 U/L (15-37); Albumin 3.3 g/dL (3.4-5.0); Alkaline Phosphatase 130 U/L (45-117); BUN Blood Urea Nitrogen 11 mg/dL (7-18); Bicarbonate 24 mEq/L (21-32); Bilirubin Total 0.2 mg/dL (0.2-1.0); Glomerular Filtration Rate 81 ml/min (=/>90); Glucose Level 131 mg/dL (74-106); Lipase 36 U/L (13-75); Magnesium 2.4 mg/dL (1.6-2.4); NT PRO-BNP 58 pg/mL (<125); Potassium 3.6 mEq/L (3.5-5.1); Protein, Total 6.9 g/dL (6.4-8.2); Sodium Level 139 mEq/L (136-145); Troponin High Sensitivity 3.6 pg/mL (<58.9)
[2023-03-09 23:12] LABS: Bilirubin Direct < 0.1 mg/dL (0-0.2); Bilirubin Indirect, Calculated ND mg/dL (0.2-0.8)
[2023-03-09 23:18] LABS: Anisocytosis 2+; Blood Morphology Comment NOTED (NOT SEEN); Platelet Estimate ADEQ; White Blood Cell Scan OK (OK)
[2023-03-09] MEDS ORDERED: FAMOTIDINE 20 MG/2 ML VIAL IV ONE (23:51)
--- NOTE | 2023-03-09 23:58 | ER ---
Nurse's Notes [facility] Name: Shivani Lagunas Age: 47 yrs Sex: Female : 1975 Arrival Date: 03/09/2023 Time: 22:17 Bed 5 Private MD: Diagnosis: Chest pain, unspecified;Dyspnea;Obesity, unspecified Presentation: 03/09 22:22 Chief complaint: Patient states: started having congestion, chest pain, and sob this rv morning, symptoms gradually progressed. noted swelling on toi legs. hx of chf, arrhytmia with pvc. Coronavirus screen: At this time, the client does not indicate any symptoms associated with coronavirus-19. Ebola Screen: No symptoms or risks identified at this time. Initial Sepsis Screen: Does the patient meet any 2 criteria? No. Patient's initial sepsis screen is negative. Does the patient have a suspected source of infection? No. Patient's initial sepsis screen is negative. Risk Assessment: Do you want to hurt yourself or someone else? Patient reports no desire to harm self or others. Onset of symptoms was March 09, 2023. 22:22 Method Of Arrival: Ambulatory rv 22:22 Acuity: ALICIA 2 rv Triage Assessment: 22:24 General: Appears comfortable, Behavior is calm, cooperative. Pain: Denies pain. Neuro: rv Level of Consciousness is awake, alert, obeys commands, Oriented to person, place, time, situation. Cardiovascular: Reports chest pain, described as tightness Capillary refill < 3 seconds Patient's skin is warm and dry. Respiratory: Reports shortness of breath on exertion Airway is patent Respiratory effort is even, unlabored. Derm: Skin is intact. Historical: - Allergies: 22:24 Sulfa (Sulfonamide Antibiotics); rv - PMHx: 22:24 Bipolar disorder; Hypertensive disorder; Schizophrenia; Congestive heart failure; rv - PSHx: 22:24 section; Cholecystectomy; rv - Immunization history:: Adult Immunizations up to date. - Social history:: Smoking status: Patient denies any tobacco usage or history of. - Family history:: not pertinent. Screenin:26 [facility] ED Fall Risk Assessment (Adult) History of falling in the last 3 months, rv including since admission No falls in past 3 months (0 pts) Score/Fall Risk Level 0 - 2 = Low Risk Oriented to surroundings, Maintained a safe environment, Educated pt \T\ family on fall prevention, incl call for assistance when getting out of bed, Assessed \T\ reinforced patient's understanding of fall precautions. Abuse screen: Denies threats or abuse. Denies injuries from another. Nutritional screening: No deficits noted. Tuberculosis screening: No symptoms or risk factors identified. Vital Signs: 22:22 Pulse 72; Resp 18; Temp 98.4; Pulse Ox 98% on R/A; Weight 99.79 kg; Height 5 ft. 6 in. rv ; Pain 0/10; 23:00 BP 122 / 66; Pulse 69; Pulse Ox 97% ; nw1 23:30 BP 132 / 69; Pulse 70; Pulse Ox 100% ; nw1 03/10 00:00 BP 134 / 69; Pulse 69; Pulse Ox 100% on R/A; nw1 03/09 22:22 Body Mass Index 35.51 (99.79 kg, 167.64 cm) rv 03/09 22:22 Pain Scale: Adult rv ED Course: 03/09 22:19 Patient arrived in ED. ag3 22:24 Triage completed. rv 22:24 Bal Dowling MD is Attending Physician. lori 22:24 Arm band placed on right wrist. rv 22:26 Patient has correct armband on for positive identification. Client placed on continuous rv cardiac and pulse oximetry monitoring. NIBP monitoring applied. panel monitor on. 22:26 No provider procedures requiring assistance completed. Patient maintains SpO2 rv saturation greater than 95% on room air. 22:29 Wiley Hubbard, RN is Primary Nurse. la4 22:39 Flu Sent. la4 22:39 SARS RAPID Sent. la4 22:39 Lipase Sent. la4 22:39 D-Dimer Sent. la4 22:39 Basic Metabolic Panel Sent. la4 22:39 CBC with Diff Sent. la4 22:39 LFT's Sent. la4 22:39 Magnesium Sent. la4 22:39 Inserted saline lock: 20 gauge in left forearm, using aseptic technique. Blood jb4 collected. 22:40 NT PRO-BNP Sent. la4 22:40 PT-INR Sent. la4 22:40 Troponin HS Sent. la4 23:05 XRAY Chest (1 view) In Process Unspecified. EDMS 23:05 CT Head Brain wo Cont In Process Unspecified. EDMS 23:06 CBC Smear Scan Sent. nw1 23:06 SARS RAPID Sent. nw1 23:06 Flu Sent. nw1 23:06 Lipase Sent. nw1 23:06 Troponin HS Sent. nw1 23:06 NT PRO-BNP Sent. nw1 23:06 Magnesium Sent. nw1 23:06 LFT's Sent. nw1 23:06 Basic Metabolic Panel Sent. nw1 23:57 Jewel Resendez is Hospitalizing Provider. [facility] 03/10 00:26 CT Chest For PE Angio In Process Unspecified. EDMS 00:26 CT Abd/Pelvis - IV Contrast Only In Process Unspecified. EDMS 03:24 Patient admitted, IV remains in place. intact. nw1 Administered Medications: 03/09 22:39 Drug: Aspirin PO Chewable Tablet 162 mg PO once Route: PO; [facility] 23:55 Drug: Famotidine IVP 20 mg IVP once; dilute with 10 mL 0.9% NaCl; give over 2 minutes nw Route: IVP; Site: right forearm; 03/10 00:42 Drug: Enoxaparin Sub-Q 1 mg/kg Sub-Q once Route: Sub-Q; Site: right lower abdomen; jb4 Medication: 03/09 22:26 VIS not applicable for this client. rv Outcome: 23:58 Decision to Hospitalize by Provider. [facility] 03/10 02:34 Admitted to Tele accompanied by nurse, via wheelchair, room 232, Report called to lázaro Etienne RN 02:34 Condition: stable [facility] 02:34 Instructed on the need for admit, 03:27 Patient left the ED. [facility] Signatures: Dispatcher [employer] EDBal Degroot MD MD cha Bryson, James, RN RN jb4 Ottoniel Maria RN RN Karen Black La'Rea, RN RN Liseth Neil, RN RN nw1
--- NOTE | 2023-03-09 23:58 | EDPHYS ---
Physician Documentation [facility] Name: Shivani Lagunas Age: 47 yrs Sex: Female : 1975 Arrival Date: 03/09/2023 Time: 22:17 Bed 5 Private MD: ED Physician Bal Dowling HPI: 03/09 23:49 This 47 yrs old Female presents to ER via Ambulatory with complaints of Chest lori Tightness, Breathing Difficulty, Headache. 23:49 The patient or guardian reports chest pain that is located primarily in the substernal lori area, anterior chest wall. Onset: 1 hour(s) ago. The pain does not radiate. Associated signs and symptoms: Pertinent positives: shortness of breath. The chest pain is described as aching. Severity of pain: At its worst the pain was mild in the emergency department the pain is unchanged. Historical: - Allergies: 22:24 Sulfa (Sulfonamide Antibiotics); rv - PMHx: 22:24 Bipolar disorder; Hypertensive disorder; Schizophrenia; Congestive heart failure; rv - PSHx: 22:24 section; Cholecystectomy; rv - Immunization history:: Adult Immunizations up to date. - Social history:: Smoking status: Patient denies any tobacco usage or history of. - Family history:: not pertinent. ROS: 23:49 Constitutional: Negative for fever, chills, and weight loss, Eyes: Negative for injury, lori pain, redness, and discharge, ENT: Negative for injury, pain, and discharge, Neck: Negative for injury, pain, and swelling, Respiratory: Negative for shortness of breath, cough, wheezing, and pleuritic chest pain, Abdomen/GI: Negative for abdominal pain, nausea, vomiting, diarrhea, and constipation, Back: Negative for injury and pain, : Negative for injury, bleeding, discharge, and swelling, MS/Extremity: Negative for injury and deformity, Skin: Negative for injury, rash, and discoloration, Neuro: Negative for headache, weakness, numbness, tingling, and seizure, Psych: Negative for depression, anxiety, suicide ideation, homicidal ideation, and hallucinations, Allergy/Immunology: Negative for hives, rash, and allergies, Endocrine: Negative for neck swelling, polydipsia, polyuria, polyphagia, and marked weight changes, Hematologic/Lymphatic: Negative for swollen nodes, abnormal bleeding, and unusual bruising, 23:49 Cardiovascular: Positive for chest pain, of the chest, 23:49 MS/extremity: Negative for acute changes, Exam: 23:49 Constitutional: This is a well developed, well nourished patient who is awake, alert, lori and in no acute distress. Head/Face: Normocephalic, atraumatic. Eyes: Pupils equal round and reactive to light, extra-ocular motions intact. Lids and lashes normal. Conjunctiva and sclera are non-icteric and not injected. Cornea within normal limits. Periorbital areas with no swelling, redness, or edema. ENT: Nares patent. No nasal discharge, no septal abnormalities noted. Tympanic membranes are normal and external auditory canals are clear. Oropharynx with no redness, swelling, or masses, exudates, or evidence of obstruction, uvula midline. Mucous membranes moist. Neck: Trachea midline, no thyromegaly or masses palpated, and no cervical lymphadenopathy. Supple, full range of motion without nuchal rigidity, or vertebral point tenderness. No Meningismus. Chest/axilla: Normal chest wall appearance and motion. Nontender with no deformity. No lesions are appreciated. Cardiovascular: Regular rate and rhythm with a normal S1 and S2. No gallops, murmurs, or rubs. Normal PMI, no JVD. No pulse deficits. Respiratory: Lungs have equal breath sounds bilaterally, clear to auscultation and percussion. No rales, rhonchi or wheezes noted. No increased work of breathing, no retractions or nasal flaring. Abdomen/GI: Soft, non-tender, with normal bowel sounds. No distension or tympany. No guarding or rebound. No evidence of tenderness throughout. Back: No spinal tenderness. No costovertebral tenderness. Full range of motion. Female : Normal external genitalia. Skin: Warm, dry with normal turgor. Normal color with no rashes, no lesions, and no evidence of cellulitis. MS/ Extremity: Pulses equal, no cyanosis. Neurovascular intact. Full, normal range of motion. Neuro: Awake and alert, GCS 15, oriented to person, place, time, and situation. Cranial nerves II-XII grossly intact. Motor strength 5/5 in all extremities. Sensory grossly intact. Cerebellar exam normal. Normal gait. Psych: Awake, alert, with orientation to person, place and time. Behavior, mood, and affect are within normal limits. 23:49 ECG was reviewed by the Attending Physician. Vital Signs: 22:22 Pulse 72; Resp 18; Temp 98.4; Pulse Ox 98% on R/A; Weight 99.79 kg; Height 5 ft. 6 in. rv ; Pain 0/10; 23:00 BP 122 / 66; Pulse 69; Pulse Ox 97% ; nw1 23:30 BP 132 / 69; Pulse 70; Pulse Ox 100% ; nw1 03/10 00:00 BP 134 / 69; Pulse 69; Pulse Ox 100% on R/A; nw1 03/09 22:22 Body Mass Index 35.51 (99.79 kg, 167.64 cm) rv 03/09 22:22 Pain Scale: Adult rv MDM: 03/09 22:24 Patient medically screened. lori 23:53 Differential diagnosis: abnormal EKG, acute myocardial infarction, acute pericarditis, lori anxiety, chest wall pain, congestive heart failure costochondritis, pancreatitis, pericarditis, pleurisy, pneumonia, pulmonary embolus, stable angina, thoracic aortic disection, unstable angina. HEART Score: History: Slightly Suspicious (0), ECG: Non specific repolarization disturbance / LBTB / PM (1), Age: < or = 45 years (0), Risk Factors: > or = 3 Risk factors for atherosclerotic disease (2), [+ Family HX] [Obesity]. The patient was given aspirin in the Emergency Department. AXEL Risk Score: 1 - Three or more CAD risk factors, [Family Hx], [HTN], [Elevated Cholesterol], TOTAL SCORE = 1. Data reviewed: vital signs, nurses notes, lab test result(s), EKG, radiologic studies, CT scan, plain films. Consideration of Admission/Observation Patient was admitted/placed on observation. Escalation of care including admission/observation considered. I considered the following discharge prescriptions or medication management in the emergency department Medications were administered in the Emergency Department. See MAR. Independent interpretation of the following test(s) in the Emergency Department EKG: See my EKG interpretation above. Test considered but Not performed: Ultrasound no 2d echo. Historians other than the Patient: Family Member: familty, well informed. Care significantly affected by the following chronic conditions: Hypertension, Congestive Heart Failure, Obesity. Counseling: I had a detailed discussion with the patient and/or guardian regarding the historical points, exam findings, and any diagnostic results supporting the discharge/admit diagnosis, lab results, radiology results, the need for further work-up and treatment in the hospital. 03/09 22:27 Order name: Basic Metabolic Panel; Complete Time: 23:47 [facility] 03/09 22:27 Order name: CBC with Diff; Complete Time: 23:47 [facility] 03/09 22:27 Order name: LFT's; Complete Time: 23:47 [facility] 03/09 22:27 Order name: Magnesium; Complete Time: 23:47 [facility] 03/09 22:27 Order name: NT PRO-BNP; Complete Time: 23:47 [facility] 03/09 22:27 Order name: PT-INR; Complete Time: 23:47 [facility] 03/09 22:27 Order name: Troponin HS; Complete Time: 23:47 [facility] 03/09 22:27 Order name: Urinalysis w/ reflexes; Complete Time: 02:45 [facility] 03/09 22:27 Order name: Lipase; Complete Time: 23:47 [facility] 03/09 22:27 Order name: Flu; Complete Time: 23:47 [facility] 03/09 22:27 Order name: SARS RAPID; Complete Time: 23:47 [facility] 03/09 22:27 Order name: D-Dimer; Complete Time: 23:47 [facility] 03/09 22:54 Order name: CBC Smear Scan; Complete Time: 23:47 [facility] 03/10 02:14 Order name: Urinalysis w/ reflexes [facility] 03/10 02:14 Order name: Basic Metabolic Panel [facility] 03/10 02:14 Order name: Basic Metabolic Panel [facility] 03/10 02:14 Order name: CBC with Automated Diff [facility] 03/10 02:14 Order name: CBC with Automated Diff [facility] 03/10 02:14 Order name: Troponin High Sensitivity [facility] 03/10 02:14 Order name: Troponin High Sensitivity [facility] 03/10 02:14 Order name: Troponin High Sensitivity [facility] 03/10 02:14 Order name: Troponin High Sensitivity [facility] 03/10 02:14 Order name: Troponin High Sensitivity [facility] 03/10 02:14 Order name: Troponin High Sensitivity [facility] 03/10 02:14 Order name: Troponin High Sensitivity [facility] 03/09 22:27 Order name: XRAY Chest (1 view) [facility] 03/09 22:27 Order name: CT Head Brain wo Cont [facility] 03/09 23:49 Order name: CT Chest For PE Angio [facility] 03/09 23:49 Order name: CT Abd/Pelvis - IV Contrast Only [facility] 03/09 22:27 Order name: EKG; Complete Time: 22:28 [facility] 03/09 22: Order name: Cardiac monitoring; Complete Time: 22:39 [facility] 03/09 22:27 Order name: EKG - Nurse/Tech; Complete Time: 22:39 [facility] 03/09 22: Order name: IV Saline Lock; Complete Time: 22:39 [facility] 03/09 22: Order name: Labs collected and sent; Complete Time: 22:39 [facility] 03/09 22: Order name: O2 Per Protocol; Complete Time: :39 [facility] 03/09 21: Order name: O2 Sat Monitoring; Complete Time: 22:39 [facility] 03/10 00:00 Order name: Vital Signs: bp; Complete Time: 00:35 [facility] EC:49 Rate is 75 beats/min. Rhythm is regular. QRS [place] is Normal. [place] interval is normal. QRS lori interval is normal. QT interval is prolonged at 482 msec. No Q waves. T waves are Normal. No ST changes noted. Clinical impression: NSR w/ Non-specific ST/T Changes and No evidence of ischemia. Administered Medications: 22:39 Drug: Aspirin PO Chewable Tablet 162 mg PO once Route: PO; la4 23:55 Drug: Famotidine IVP 20 mg IVP once; dilute with 10 mL 0.9% NaCl; give over 2 minutes nw1 Route: IVP; Site: right forearm; 03/10 00:42 Drug: Enoxaparin Sub-Q 1 mg/kg Sub-Q once Route: Sub-Q; Site: right lower abdomen; jb4 Disposition Summary: 03/09/23 23:58 Hospitalization Ordered Notes: Hospitalization Status: Observation lori Provider: Jewel Resendez cha Location: Telemetry/MedSurg (observation) lori Condition: Fair lori Problem: new lori Symptoms: have improved lori Bed/Room Type: Standard lori Room Assignment: 232(03/10/23 02:12) ty Diagnosis - Chest pain, unspecified lori - Dyspnea lori - Obesity, unspecified lori Forms: - Medication Reconciliation Form lori - SBAR form lori - Leadership Thank You Letter lori Signatures: Dispatcher [employer] EDMS Nitesh, Bal, MD MD lori Bronx, Antony, RN RN jb4 Ottoniel Maria RN RN Wiley Aguilar RN RN la4 Liseth Archibald RN RN nw1 Olga Real MD MD cu Yandell, Tylor ty Corrections: (The following items were deleted from the chart) 02:12 03/09 23:58 lori forman
[2023-03-10] MEDS ORDERED: ENOXAPARIN 100 MG/ML SYR SQ ONE (00:38)
[2023-03-10 01:40] LABS: Specific Gravity 1.023 (1.005-1.030); Urine Bacteria None Seen /HPF (<20); Urine Bilirubin NEGATIVE (Negative); Urine Blood Negative (Negative); Urine Clarity Turbid (Clear); Urine Color Colorless (Yellow); Urine Glucose NEGATIVE (Negative); Urine Protein NEGATIVE (Negative); Urine RBC <5 /HPF (None Seen); Urine Urobilinogen Normal (Normal); Urine pH 7.5 (5.0-7.0)
[2023-03-10] MEDS ORDERED: ONDANSETRON 4 MG/2 ML VIAL IV PRN (02:08)
--- NOTE | 2023-03-10 02:42 | P.HP ---
Certification for Inpatient Patient admitted to: Observation With expected LOS: <2 Midnights Practitioner: I am a practitioner with admitting privileges, knowledge of patient current condition, hospital course, and medical plan of care. Services: Services provided to patient in accordance with Admission requirements found in Title 42 Section 412.3 of the Code of Federal Regulations Patient History Date of Service: 03/10/23 Reason for admission: Chest pain History of Present Illness: 47-year-old female with a history of hypertension, bipolar disorder and arrhythmias with PVC presented to the ED with complaints of chest tightness between the lower chest and upper abdomen and radiated to the back. Symptoms started today associated with difficulty breathing and dyspnea on exertion. She complains of dry cough and some leg swelling that started yesterday. She has no palpitation or wheezing and as symptoms just started she has not noted any orthopnea or PND. Arrival to the ED her vital signs were within normal limits. EKG was negative. Her labs were also unremarkable. Chest x-ray is negative for vascular congestion. CT chest is negative for acute finding however CT abdomen and pelvis revealed moderate stool burden and hepatic steatosis without any acute intra-abdominal or pelvic pathology.. Allergies Sulfa (Sulfonamide Allergy (Intermediate, Uncoded 03/10/23 03:35) Itching/Hives/Rash Sulfa (Sulfonamide Ant Allergy (Intermediate, Uncoded 03/10/23 03:35) Hives/Rash Review of Systems 10-point ROS is otherwise unremarkable (Except for HPI) Physical Examination - Vital Signs Temperature: 98.4 F Blood Pressure: 123/56 Pulse: 72 Respirations: 18 Pulse Ox (%): 98 - Physical Exam General: Alert, In no apparent distress, Oriented x3 HEENT: Atraumatic, Normocephalic, PERRLA Neck: Supple, JVD not distended, No Thyromegaly Respiratory: Clear to auscultation bilaterally, Normal air movement Cardiovascular: No edema, Normal pulses, Regular rate/rhythm Gastrointestinal: Normal bowel sounds, Soft and benign, Non-distended Musculoskeletal: No swelling, No erythema, No tenderness Integumentary: No rashes Neurological: Normal speech, Normal strength at 5/5 x4 extr - Studies Laboratory Data (last 24 hrs) 03/09/23 03/09/23 03/09/23 22:42 22:42 22:42 WBC 10.30 Hgb 11.2 L Hct 34.0 L Plt Count 245 PT 10.4 INR 0.94 Sodium 139 Potassium 3.6 BUN 11 Creatinine 0.89 Glucose 131 H Magnesium 2.4 Total Bilirubin 0.2 AST 15 ALT 33 Alkaline Phosphatase 130 H Lipase 36 Microbiology Data (last 24 hrs): 03/09/23 22:42 Nasopharnyx Influenza Type A Antigen Screen - Final 03/09/23 22:42 Nasopharnyx Influenza Type B Antigen Screen - Final Assessment and Plan - Plan Chest pain, atypical Constipation Bipolar disorder Hypertension Plan Observe in telemetry Repeat serial troponins Bowel regimen - Advance Directives Does patient have a Living Will: No Does patient have a Durable POA for Healthcare: No
[2023-03-10 04:26] VITALS: BMI 35.6
[2023-03-10] MEDS: LACTULOSE 20 GM/30 ML UCUP PO SCH ×3 (04:38→21:00)
[2023-03-10] MEDS: ENOXAPARIN 40 MG/0.4 ML SQ SCH (09:54)
--- NOTE | 2023-03-10 10:08 | P.PN ---
Subjective Date of Service: 03/10/23 Chief Complaint: Chest pain Shortness of breath, chest pain improved, ,reports migrane 09/21 - Physical Exam General: Alert, In no apparent distress, Oriented x3 HEENT: Atraumatic, Normocephalic, PERRLA Neck: Supple, JVD not distended, No Thyromegaly Respiratory: Clear to auscultation bilaterally, Normal air movement Cardiovascular: No edema, Normal pulses, Regular rate/rhythm Gastrointestinal: Normal bowel sounds, Soft and benign, Non-distended Musculoskeletal: No swelling, No erythema, No tenderness Review of Systems per HPI Physical Examination - Vital Signs Temperature: 98.2 F Blood Pressure: 140/63 Pulse: 77 Respirations: 16 Pulse Ox (%): 97 - Studies Laboratory Data (last 24 hrs) 03/09/23 03/09/23 03/09/23 22:42 22:42 22:42 WBC 10.30 Hgb 11.2 L Hct 34.0 L Plt Count 245 PT 10.4 INR 0.94 Sodium 139 Potassium 3.6 BUN 11 Creatinine 0.89 Glucose 131 H Magnesium 2.4 Total Bilirubin 0.2 AST 15 ALT 33 Alkaline Phosphatase 130 H Lipase 36 Microbiology Data (last 24 hrs): 03/09/23 22:42 Nasopharnyx Influenza Type A Antigen Screen - Final 03/09/23 22:42 Nasopharnyx Influenza Type B Antigen Screen - Final Assessment And Plan - Plan Assessment and plan Chest pain, atypical Telemetry, trend troponin troponins unremarkable 3.6, 3.4, 4.3 Lovenox 1 mg/kg, as needed analgesics CT of the chest PE protocol , Chest x-ray 75 beats/min. Rhythm is regular. QRS [place] is Normal. [place] interval is normal. QRS interval is normal. QT interval is prolonged at 482 msec. No Q waves. T waves are Normal. No ST changes noted. Clinical impression: NSR w/ Non-specific ST/T Changes and No evidence of ischemia. COVID-negative D-dimer is normal acute on chronic migrane uncontrolled Fioricet, benedry prn CT Head Microcytic anemia 11.[address] of the abdomen pelvis As needed stool softener UA negative for UTI Bipolar disorder Hypertension Obesity Resume appropriate home meds Educated on cardiac diet Full code DVT Lovenox Diet cardiac Discharge Plan: Home - Code Status/Comfort Care Code Status: Full Code Critical Care: No Time Spent Managing PTS Care (In Minutes): 35
[2023-03-10] MEDS ORDERED: ACETAMINOPHEN 500 MG TAB PO ONE (10:22)
[2023-03-10] MEDS ORDERED: ACETAMIN/CAFFEINE/BUTALB TAB PO PRN (11:41)
[2023-03-10] MEDS ORDERED: DIPHENHYDRAMINE 50 MG/ML VIAL IV PRN (11:46)
--- NOTE | 2023-03-10 16:38 | P.DS ---
Admission Date: 03/10/23 Discharge Date: 03/11/23 Disposition: ROUTINE DISCHARGE Discharge Condition: FAIR Reason for Admission: Chest pain Brief History of Present Illness: 47-year-old female with a history of hypertension, bipolar disorder and arrhythmias with PVC presented to the ED with complaints of chest tightness between the lower chest and upper abdomen and radiated to the back. Symptoms started today associated with difficulty breathing and dyspnea on exertion. She complains of dry cough and some leg swelling that started yesterday. She has no palpitation or wheezing and as symptoms just started she has not noted any orthopnea or PND. Arrival to the ED her vital signs were within normal limits. EKG was negative. Her labs were also unremarkable. Chest x-ray is negative for vascular congestion. CT chest is negative for acute finding however CT abdomen and pelvis revealed moderate stool burden and hepatic steatosis without any acute intra-abdominal or pelvic pathology. - Physical Exam General: Alert, In no apparent distress, Oriented x3 HEENT: Atraumatic, Normocephalic, PERRLA Neck: Supple, JVD not distended, No Thyromegaly Respiratory: Clear to auscultation bilaterally, Normal air movement Cardiovascular: No edema, Normal pulses, Regular rate/rhythm Gastrointestinal: Normal bowel sounds, Soft and benign, Non-distended Musculoskeletal: No swelling, No erythema, No tenderness Integumentary: No rashes Neurological: Normal speech, Normal strength at 5/5 x4 extr Hospital Course: [id number]-old female patient presented with chest pain, abdominal pain, migraine. Was noted to have atypical chest pain, negative troponin. EKG negative for acute ischemic changes, COVID, D-dimer were normal. Was treated with as needed analgesics, Lovenox, oxygen. Condition improved with treatment plan. Stable for discharge with follow-up appointment with primary care physician. PROBLEM: Atypical chest pain Migraine Fatty liver Abdominal pain Constipation Anxiety Serial troponins are negative Follow-up with cardiology for additional workup for continued chest pain. CT of the head, cervical spine FINDINGS: A cervical fracture is not seen. Chest x-ray IMPRESSION: No acute radiographic abnormality CT of the abdomen pelvis IMPRESSION: 1. No pulmonary embolism. No acute aortic abnormality. 2. No acute intrathoracic, abdominal or pelvic abnormality. 3. Moderate stool burden. Correlate for constipation.4. Hepatic steatosis. Continue home medicines as previously prescribed Take [id number] stool softeners as needed daily for constipation GOAL: Clear understanding of disease process INSTRUCTIONS: Physician Discharge Instructions: -DC IV and DC home -Follow-up with PCP in 1 to 2 weeks -Please call Dr. Chapin at [phone] if any questions regarding hospital stay -Please call nursing station at [phone] if any nursing or medication questions -Return to the emergency room if symptoms worsen Diet: ADA, low sodium Activity: Fall precautions DME: Date Ordered: Name of Company: [employer] Services Needed: None Date or Referral: IMMUNIZATION Influenza Vaccine Indicated: Influenza Vaccine Given: Date Given: Pneumonia Vaccine Indicated: Pneumonia Vaccine Given: Date Given: Vital Signs/Physical Exam: Temp Pulse Resp BP Pulse Ox 98.2 F 77 16 140/63 97 03/10/23 16:34 03/10/23 16:34 03/10/23 16:34 03/10/23 16:34 03/10/23 16:34 Laboratory Data at Discharge: WBC 10.30 thou/uL (4.3-10.9) 03/09/23 22:42 Hgb 11.2 g/dL (12.0-15.0) L 03/09/23 22:42 Hct 34.0 % (36.0-45.0) L 03/09/23 22:42 Plt Count 245 thou/uL (152-406) 03/09/23 22:42 PT 10.4 SECONDS (9.5-12.5) 03/09/23 22:42 INR 0.94 03/09/23 22:42 Sodium 139 mEq/L (136-145) 03/09/23 22:42 Potassium 3.6 mEq/L (3.5-5.1) 03/09/23 22:42 BUN 11 mg/dL (7-18) 03/09/23 22:42 Creatinine 0.89 mg/dL (0.55-1.02) 03/09/23 22:42 Glucose 131 mg/dL (74-106) H 03/09/23 22:42 Magnesium 2.4 mg/dL (1.6-2.4) 03/09/23 22:42 Total Bilirubin 0.2 mg/dL (0.2-1.0) 03/09/23 22:42 AST 15 U/L (15-37) 03/09/23 22:42 ALT 33 U/L (13-56) 03/09/23 22:42 Alkaline Phosphatase 130 U/L (45-117) H 03/09/23 22:42 Lipase 36 U/L (13-75) 03/09/23 22:42 Home Medications: Allopurinol 100 mg PO DAILY 03/10/23 Amlodipine Besylate 5 mg PO DAILY 03/10/23 Buspirone HCl [Buspar] 10 mg PO BID 03/10/23 Cyclobenzaprine [Flexeril*] 10 mg PO DAILY PRN 03/10/23 Duloxetine HCl 2 tab PO BEDTIME 03/10/23 Ketorolac [Toradol*] 10 mg PO DAILY PRN 03/10/23 Fruithurst Carbonate [Fruithurst Carbonate ER] 2 tab PO BEDTIME 03/10/23 Losartan Potassium 100 mg PO DAILY 03/10/23 Pantoprazole Sodium 40 mg PO DAILY 03/10/23 Propranolol [Inderal LA*] 80 mg PO BID 03/10/23 Rosuvastatin Calcium 10 mg PO DAILY 03/10/23 Sucralfate [Carafate] 1 gm PO DAILY 03/10/23 Trazodone [Desyrel*] 50 mg PO BEDTIME 03/10/23 clonazePAM [Clonazepam] 1 mg PO DAILY PRN 03/10/23 lamoTRIgine [Lamotrigine] 100 mg PO BID 03/10/23 Physician Discharge Instructions: 40-qeot[age]ub[age]-old female patient presented with chest pain, abdominal pain, migraine. Was noted to have atypical chest pain, negative troponin. EKG negative for acute ischemic changes, COVID, D-dimer were normal. Was treated with as needed analgesics, Lovenox, oxygen. Condition improved with treatment plan. Stable for discharge with follow-up appointment with primary care physician. PROBLEM: Atypical chest pain Migraine Abdominal pain Constipation Serial troponin Normal Follow-up with cardiology for additional chest pain workup, Dr. JUNE Continue home medicines as previously prescribed GOAL: Clear understanding of disease process INSTRUCTIONS: Physician Discharge Instructions: -DC IV and DC home -Follow-up with PCP in 1 to 2 weeks -Please call Dr. Chapin at [phone] if any questions regarding hospital stay -Please call nursing station at [phone] if any nursing or medication questions -Return to the emergency room if symptoms worsen Diet: ADA, low sodium Activity: Fall precautions DME: Date Ordered: Name of Company: [employer] Services Needed: None Date or Referral: IMMUNIZATION Influenza Vaccine Indicated: Influenza Vaccine Given: Date Given: Pneumonia Vaccine Indicated: Pneumonia Vaccine Given: Date Given: Diet: AHA Activity: Fall precautions Followup: Sony June MD [ACTIVE - CAN ADMIT] - 1-2 Weeks Unknown,U [Primary Care Provider] - Time spent managing pt's care (in minutes): 55
--- NOTE | 2023-03-10 19:07 | RAD REPORT ---
EXAM DESCRIPTION: CT - C Spine Wo Con - 03/10/2023 6:43 pm CLINICAL HISTORY: Radiculopathy COMPARISON: None TECHNIQUE: Computed axial tomography of the cervical spine were obtained with sagittal and coronal r econstruction images generated and reviewed. All CT scans are performed using dose optimization technique as appropriate and may include automated exposure control or mA/KV adjustment according to patient size. FINDINGS: A cervical fracture is not seen. No dislocation. No high-grade central/foraminal stenosis noted IMPRESSION: A cervical fracture is not seen. No high-grade central/foraminal stenosis noted If the patient continues have symptoms to suggest spinal cord/spinal canal pathology then MRI would b e recommended.
--- NOTE | 2023-03-10 19:48 | RAD REPORT ---
EXAM DESCRIPTION: CT - Chest For Pe Angio - 03/10/2023 7:34 am CLINICAL HISTORY: The patient is 47 years old and is Female; CHEST PAIN TECHNIQUE: Axial computed tomographic angiography images of the chest and axial computed tomography images of the abdomen and pelvis with intravenous contrast. This CT exam was performed using one or more of the following dose reduction techniques: automated exposure control, adjustment of the mA and/or kV according to patient size, and/or use of iterative reconstruction technique. MIP reconstructed images were created and reviewed. Oblique reformatted images were created and reviewed. DLP: 1617 mGy*cm COMPARISON: Chest radiograph of the same day and CT abdomen and pelvis dated 01/16/2023. FINDINGS: CHEST: AORTA: No acute findings. No aortic aneurysm. No dissection. PULMONARY ARTERIES: Unremarkable as visualized. No pulmonary embolism is identified. GREAT VESSELS OF AORTIC ARCH: No acute findings. No dissection. No arterial occlusion or signif icant stenosis. LUNGS: Unremarkable. No mass. No consolidation. PLEURAL SPACE: Unremarkable. No significant effusion. No pneumothorax. HEART: Unremarkable. No cardiomegaly. No significant pericardial effusion. ABDOMEN: LIVER: Hepatic steatosis. GALLBLADDER AND BILE DUCTS: Prior cholecystectomy. No ductal dilation. PANCREAS: Unremarkable. No ductal dilation. No mass. SPLEEN: Unremarkable. No splenomegaly. ADRENALS: Unremarkable. No mass. KIDNEYS AND URETERS: Unremarkable. No hydronephrosis. No solid mass. STOMACH AND BOWEL: Moderate stool burden. No obstruction. No mucosal thickening. PELVIS: APPENDIX: No findings to suggest acute appendicitis. BLADDER: Unremarkable. No mass. REPRODUCTIVE: Unremarkable as visualized. CHEST, ABDOMEN and PELVIS: INTRAPERITONEAL SPACE: Unremarkable. No significant fluid collection. No free air. BONES/JOINTS: No acute fracture. No dislocation. SOFT TISSUES: Fat-containing ventral hernia. LYMPH NODES: Unremarkable. No enlarged lymph nodes. IMPRESSION: 1. No pulmonary embolism. No acute aortic abnormality. 2. No acute intrathoracic, abdominal or pelvic abnormality. 3. Moderate stool burden. Correlate for constipation. 4. Hepatic steatosis. Electronically signed by: Kenny Babb DO 03/10/2023 12:40 AM DOG CATCHER Due to temporary technical issues with the PACS/Fluency reporting system, reports are being signed by the in house radiologists without review as a courtesy to insure prompt reporting. The interpreting radiologist is fully responsible for the content of the report.
--- NOTE | 2023-03-10 19:51 | RAD REPORT ---
EXAM DESCRIPTION: CT - Abdomen Pelvis W Contrast - 03/10/2023 7:34 am CLINICAL HISTORY: The patient is 47 years old and is Female; CHEST PAIN TECHNIQUE: Axial computed tomographic angiography images of the chest and axial computed tomography images of the abdomen and pelvis with intravenous contrast. This CT exam was performed using one or more of the following dose reduction techniques: automated exposure control, adjustment of the mA and/or kV according to patient size, and/or use of iterative reconstruction technique. MIP reconstructed images were created and reviewed. Oblique reformatted images were created and reviewed. DLP: 1617 mGy*cm COMPARISON: Chest radiograph of the same day and CT abdomen and pelvis dated 01/16/2023. FINDINGS: CHEST: AORTA: No acute findings. No aortic aneurysm. No dissection. PULMONARY ARTERIES: Unremarkable as visualized. No pulmonary embolism is identified. GREAT VESSELS OF AORTIC ARCH: No acute findings. No dissection. No arterial occlusion or signif icant stenosis. LUNGS: Unremarkable. No mass. No consolidation. PLEURAL SPACE: Unremarkable. No significant effusion. No pneumothorax. HEART: Unremarkable. No cardiomegaly. No significant pericardial effusion. ABDOMEN: LIVER: Hepatic steatosis. GALLBLADDER AND BILE DUCTS: Prior cholecystectomy. No ductal dilation. PANCREAS: Unremarkable. No ductal dilation. No mass. SPLEEN: Unremarkable. No splenomegaly. ADRENALS: Unremarkable. No mass. KIDNEYS AND URETERS: Unremarkable. No hydronephrosis. No solid mass. STOMACH AND BOWEL: Moderate stool burden. No obstruction. No mucosal thickening. PELVIS: APPENDIX: No findings to suggest acute appendicitis. BLADDER: Unremarkable. No mass. REPRODUCTIVE: Unremarkable as visualized. CHEST, ABDOMEN and PELVIS: INTRAPERITONEAL SPACE: Unremarkable. No significant fluid collection. No free air. BONES/JOINTS: No acute fracture. No dislocation. SOFT TISSUES: Fat-containing ventral hernia. LYMPH NODES: Unremarkable. No enlarged lymph nodes. IMPRESSION: 1. No pulmonary embolism. No acute aortic abnormality. 2. No acute intrathoracic, abdominal or pelvic abnormality. 3. Moderate stool burden. Correlate for constipation. 4. Hepatic steatosis. Electronically signed by: Kenny Babb DO 03/10/2023 12:40 AM ONCOLOGY REP Due to temporary technical issues with the PACS/Fluency reporting system, reports are being signed by the in house radiologists without review as a courtesy to insure prompt reporting. The interpreting radiologist is fully responsible for the content of the report.
--- NOTE | 2023-03-10 19:52 | RAD REPORT ---
EXAM DESCRIPTION: CT - Head Brain Wo Cont - 03/10/2023 7:35 am CLINICAL HISTORY: 47 years Female HEADACHE COMPARISON: CT head without contrast dated 01/11/2023 TECHNIQUE: Contiguous axial images of the brain were obtained without the administration of intraven ous contrast.This exam was performed according to our departmental dose-optimization program which in cludes use of Automated Exposure Control, adjustment of the mA and/or kV according to patient size an d/or use of iterative reconstruction technique. DLP: 905 mGy*cm FINDINGS: Brain: No acute intracranial hemorrhage. No extra-axial collection. No mass effect or sriram iation. Unchanged mild prominence of the sulci and cisterns. Ventricles: Mildly prominent, more than expected for patient's age. Globes and orbits: No acute abnormality. Bones: No acute osseous finding Paranasal sinuses: Paranasal sinuses are clear. Mastoid air cells: Well pneumatized. Soft tissues: Within normal limits IMPRESSION: No acute intracranial hemorrhage, hydrocephalus or herniation. Cerebral volume loss, more than expected for patient's age. Consider MRI brain for further evaluation . Electronically signed by: Kenny Babb DO 03/09/2023 11:17 PM IGNITION EXPERT Due to temporary technical issues with the PACS/Fluency reporting system, reports are being signed by the in house radiologists without review as a courtesy to insure prompt reporting. The interpreting radiologist is fully responsible for the content of the report.
--- NOTE | 2023-03-10 19:53 | RAD REPORT ---
EXAM DESCRIPTION: RAD - Chest Single View - 03/09/2023 11:03 pm CLINICAL HISTORY: 47 years Female, CHEST PAIN COMPARISON: 09/29/2022 FINDINGS: Single portable AP upright view of the chest. Elevation of the right hemidiaphragm. Cardia c silhouette is within normal limits. No consolidation. No pleural effusion or pneumothorax. No acute osseous abnormality. IMPRESSION: No acute radiographic abnormality. Electronically signed by: Joyce Cook MD 03/09/2023 11:15 PM BOOSTER PUMP OILER Due to temporary technical issues with the PACS/Fluency reporting system, reports are being signed by the in house radiologists without review as a courtesy to insure prompt reporting. The interpreting radiologist is fully responsible for the content of the report.
[2023-03-10] MEDS ORDERED: clonazePAM 1 MG TAB PO PRN (23:24)
[2023-03-11 01:07] VITALS: O2SAT 100
[2023-03-11 04:00] LABS: Absolute Lymphocytes (CBC) 1.6 K/uL (0.7-4.9); Hematocrit 33.2 % (36.0-45.0); Lymphocytes % 25.2 % (15.3-44.8); MCV 78.2 fL (80-100); MPV 8.9 fL (7.6-11.3); Platelets 236 thou/uL (152-406); RBC Red Blood Cell Count 4.25 M/uL (3.86-4.86)
[2023-03-11 04:09] LABS: Potassium 3.3 mEq/L (3.5-5.1)
[2023-03-11] MEDS: ENOXAPARIN 40 MG/0.4 ML SQ SCH (09:00)
[2023-03-11] MEDS ORDERED: HYDROMORPHONE HCL 0.5 MG/0.5 ML INJ IV ONE (11:00)
[2023-03-11] MEDS ORDERED: PROMETHAZINE INJ 25 MG/ML AMP IV ONE (11:00)
[2023-03-11] MEDS ORDERED: POTASSIUM 25 MEQ EFFERV TAB PO ONE (11:00)
[2023-03-11 12:31] VITALS: BP 140/63; TEMP 98.2
== END 2023-03-11 16:10 | disposition home or self-care (01) ==
LOC: ER 22:17 → 2ND 03-10 02:06
PROVIDERS: ADMIT Internal Medicine; ATTEND Hospitalist
DX: R07.89 Other chest pain (principal); I10 Essential (primary) hypertension; F31.9 Bipolar disorder, unspecified; I49.9 Cardiac arrhythmia, unspecified; R05.9 Cough, unspecified; K59.09 Other constipation; G43.909 Migraine, unspecified, not intractable, without status migrainosus; D64.9 Anemia, unspecified; E66.9 Obesity, unspecified; K76.0 Fatty (change of) liver, not elsewhere classified; F41.9 Anxiety disorder, unspecified; R10.9 Unspecified abdominal pain; Z88.2 Allergy status to sulfonamides; Z68.35 Body mass index [BMI] 35.0-35.9, adult
CPT/HCPCS: 85025 ×2; 81001; 80048 ×2; 36415 ×2; 83735; 85610; 85379; 80076; 84484 ×5; 83690; 83880; 87804 ×2; 70450; 72125; 71275; 74177; 71045; 87811; Q9967; J1650 ×2; 93005; G0378

== ENCOUNTER 2023-05-22 15:20 | Emergency (ER) | payer OTHER ==
--- OUTSIDE RECORDS SUMMARY | 2023-05-22 15:32 | XMS REPORT | Continuity of Care Document ---
Author Name Unknown Address [address] [facility] [address] [place] [address] [facility] thconnect Address [address] [facility] [address] [place] [address] Care Team Providers Care Strip Cleaner Name Role Phone Jewel Jae Primary Care Physician [phone] Consuelo BAUER, Elidia Gamble Attending Clinician [phone] Dominic Keita MD Attending Clinician [phone] EMILIA SNOWDEN Attending Clinician Annia FARZANA Campbell Attending Clinician Unavailable Doctor Unassigned, Tat Momoli Attending Clinician U SARA Day Attending Clinician UnavailSARA Dorado Attending Clinician UnavailJewel Forbes MD Attending Clinician + [phone] [facility] Attending Clinician Unavailable JEWEL CUNHA Attending Clinician UnavailJENNY Joseph Attending Clinician Unavailable JENNY ARRIAGA Attending Clinician Unavailable Dexter Dias MD Attending Clinician [phone] Davidson Sutherland MD Attending Clinician + Pcp-Lab Attending Clinician Unavailable DEXTER DISA Attending Clinician Unavailable GC_GCBZW_Kadiyala_S Attending Clinician Unavaila ONEIDA Del Rosario Attending Clinician Unavailable DOMINIC KEITA Attending Clinician Unavailchris Cruz MD, Hunter Attending Clinician + [phone] Praveena BAUER, Ting Attending Clinician [phone] RADIOLOGY Attending Clinician Unavailable DORA NEWMAN Attending Clinician Unavailable Deloris HOLLOWAY, Dora Pope Attending Clinician + [phone] Kath Vences MD Attending Clinician [phone] Pob, Adc Lab Main Attending Clinician UnavailKATH Grady Attending Clinician Unavailchris russell Pathology Attending Clinician Unavailable IGOR SAAVEDRA Attending Clinician Unavaila DAVIDSON Huerta Attending Clinician Unavailable HILARY MOORE Attending Clinician Unavaila HILARY Ramires Attending Clinician Unavaila Igor mcconnell Rai, MD Attending Clinician Unava ilable GIGI MONROY Attending Clinician Unavailable Gigi Monroy DO Attending Clinician + Zane Martinez MD Attending Clinician [phone] Deonte Aviles Attending Clinician Unavailable UNKNOWN, ATTENDING Attending Clinician Unavailab SALLY Cash Attending Clinician Unavail able SALLY MITCHELL Attending Clinician Unavail able Salbador Lockwood MD Attending Clinician + SALBADOR LOCKWOOD Attending Clinician Unavailable HALIMA CONNOR Attending Clinician Unavailab Halima Choi DO Attending Clinician +[phone] ROBERT NOWAK Attending Clinician Unavail able Patti Hutton Attending Clinician +[phone] CRISTO MARTINEZ Attending Clinician Unavail able JEWEL MORAES Attending Clinician Unava ilKATH Dave Attending Clinician Unav ANGELA Richardson Attending Clinician Unavailab le GC_GCBZW_Kadiyala_S Admitting Clinician Unavaila DOMINIC Watts Admitting Clinician UnavailDominic Bello MD Admitting Clinician Payers Payer Name Policy Type Policy Number Effective Date Expirati on Date Source [employer] [id number] 2022 00:00:00 MEDICAID SSI PENDING PENDING 2021 00:00:00 Problems Condition Name Condition Details Condition Category Status Onset Date Resolution Date Last Treatment Date Treating Clinician Comments Source Iron deficiency anemia due to chronic blood loss Iron deficiency anemia due to chronic blood loss Disease Active 10-19 00:00: 00 [facility] Gastroesop hageal reflux disease, unspecifie d whether esophagiti s present Gastroesop hageal reflux disease, unspecifie d whether esophagiti s present Disease Active 10-19 00:00: 00 [facility] Arrhythmia Arrhythmia Disease Active 10-18 00:00: 00 [facility] Anemia Anemia Disease Active 02-17 00:00: 00 [facility] Bipolar 1 disorder, depressed Bipolar 1 disorder, depressed Disease Active 2019-02 00:00: 00 [facility] Gout Gout Disease Active 08-17 00:00: 00 [facility] Severe headache Severe headache Disease Active 1998-02 00:00: 00 [facility] Insomnia disorder Insomnia disorder Disease Active 1989-02 00:00: 00 [facility] Anxiety Anxiety Disease Active 10-18 00:00: 00 [facility] No known active problems No known active problems Disease [facility] Allergies, Adverse Reactions, Alerts Allergy Name Allergy Type Status Severity Reaction(s) Onset Date Inactive Date Treating Clinician Comments Source Sulfa (Sulfona mide Antibiot ics) Propensi ty to adverse reaction s Active Hives 06-05 00:00: 00 [facility] SULFA (SULFONA MIDE ANTIBIOT ICS) Drug Class Active Hives 06-05 00:00: 00 [facility] Social History Social Habit Start Date Stop Date Quantity Comments Source Gender identity [facility] function 2023-01-22 00:00:00 2023-01-22 00:00:00 [facility] Exposure to SARS-CoV-2 (event) 2022-02-05 00:00:00 2022-02-15 08:57:00 Not sure [facility] Tobacco use and exposure 2021-08-24 00:00:00 2021-08-24 00:00:00 Smokeless tobacco non-user [facility] Sex Assigned At 1975 00:00:00 1975 00:00:00 [facility] Smoking Status Start Date Stop Date Source Never smoked tobacco [facility] Medications Ordered Medication Name Filled Medication Name Start Date Stop Date Current Medication? Ordering Clinician Indication Dosage Frequency Signature (SIG) Comments Components Source busPIRone 10 mg tablet 05-07 00:00: 00 Yes [id number] 20mg Take 2 tablets by mouth in the morning and 2 tablets in the evening. [facility] traZODone 50 mg tablet 04-24 00:00: 00 Yes [id number] 50mg Take 1 tablet by mouth at bedtime. May cut tablet in half. [facility] DULoxetine 60 mg capsule 04-24 00:00: 00 Yes [id number] 60mg Take 1 capsule by mouth in the morning and 1 capsule in the evening. [facility] DULoxetine 60 mg capsule 03-07 00:00: 00 04-23 00:00 :00 No [id number] 60mg Take 1 capsule by mouth in the morning and 1 capsule in the evening. [facility] losartan potassium (LOSARTAN ORAL) 02-15 09:55: 13 Yes 20mg Take 20 mg by mouth. [facility] propranolol 80 mg tablet 02-15 09:55: 13 Yes 80mg Take 1 tablet by mouth in the morning and 1 tablet in the evening. [facility] allopurinoL 100 mg tablet 02-15 09:55: 13 Yes 100mg Take 1 tablet by mouth in the morning. [facility] clonazePAM 1 mg tablet 2022-02 00:00: 00 Yes [id number] Take half to 1 tablet by mouth once daily as needed for extreme anxiety. Attempt to minimize use. [facility] lamoTRIgine 100 mg tablet 2022-02 00:00: 00 Yes [id number] 100mg Take 1 tablet by mouth in the morning and 1 tablet in the evening. [facility] lithium carbonate CR 450 mg SR tablet 2022-02 00:00: 00 Yes [id number] 900mg Take 2 tablets by mouth at bedtime. [facility] busPIRone 10 mg tablet 2022-02 00:00: 00 05-07 00:00 :00 No [id number] 20mg Take 2 tablets by mouth in the morning and 2 tablets in the evening. [facility] traZODone 50 mg tablet 2022-02 00:00: 00 04-22 00:00 :00 No [id number] 50mg Take 1 tablet by mouth at bedtime. May cut tablet in half. [facility] DULoxetine 60 mg capsule 2022-02 00:00: 00 03-07 00:00 :00 No [id number] 60mg Take 1 capsule by mouth in the morning and 1 capsule in the evening. [facility] busPIRone 15 mg tablet 2022-02 00:00: 00 01-22 00:00 :00 No [id number] 15mg Take 1 tablet by mouth in the morning and 1 tablet in the evening. [facility] lithium carbonate CR 450 mg SR tablet 2022-02 00:00: 00 01-22 00:00 :00 No [id number] 900mg Take 2 tablets by mouth at bedtime. [facility] traZODone 50 mg tablet 2022-02 00:00: 00 01-22 00:00 :00 No [id number] 50mg Take 1 tablet by mouth at bedtime. May cut tablet in half. [facility] DULoxetine 60 mg capsule 2022-02 00:00: 00 01-22 00:00 :00 No [id number] 60mg Take 1 capsule by mouth in the morning and 1 capsule in the evening. [facility] lamoTRIgine 100 mg tablet 2022-02 00:00: 00 01-22 00:00 :00 No [id number] 100mg Take 1 tablet by mouth in the morning and 1 tablet in the evening. [facility] clonazePAM 1 mg tablet 2022-02 00:00: 00 01-22 00:00 :00 No [id number] Take 1 tablet by mouth once daily as needed for extreme anxiety. Attempt to minimize use. [facility] busPIRone 15 mg tablet 2022-02 00:00: 00 12-20 00:00 :00 No [id number] 15mg Take 1 tablet by mouth in the morning and 1 tablet in the evening. [facility] lithium carbonate CR 450 mg SR tablet 2022-02 00:00: 00 12-20 00:00 :00 No [id number] 900mg Take 2 tablets by mouth at bedtime. [facility] traZODone 50 mg tablet 2022-02 00:00: 00 12-20 00:00 :00 No [id number] 50mg Take 1 tablet by mouth at bedtime. May cut tablet in half. [facility] DULoxetine 60 mg capsule 2022-02 00:00: 00 12-20 00:00 :00 No [id number] 60mg Take 1 capsule by mouth in the morning and 1 capsule in the evening. [facility] simethicone (GAS RELIEF (SIMETHICON E)) 40 mg/0.6 mL drops 2022-02 13:19: 00 11-13 16:49 :02 No PRN, Starting on Sun11/13/22 at 0819, Until Sun11/13/22 at 1149, Routine, Intra-op [facility] losartan potassium (LOSARTAN ORAL) 2022-02 09:49: 01 Yes 20mg Take 20 mg by mouth. [facility] propranolol 80 mg tablet 2022-02 09:49: 01 Yes 80mg Take 1 tablet by mouth in the morning and 1 tablet in the evening. [facility] allopurinoL 100 mg tablet 2022-02 09:49: 01 Yes 100mg Take 1 tablet by mouth in the morning. [facility] sucralfate 1 gram tablet 2022-02 00:00: 00 12-14 04:59 :00 No 1g Take 1 tablet by mouth in the morning and 1 tablet in the evening. Do all this for 30 days. [facility] ketorolac (TORADOL) injection 30 mg 11-03 17:00: 00 11-03 16:25 :00 No 30mg 30 mg, Slow IV Push, ONCE, 1 dose, On Sun11/03/22 at 1200, Routine [facility] NaCl 0.9% (NS) bolus infusion 500 mL 11-03 16:45: 00 11-03 18:14 :00 No 500mL at 999 mL/hr, 500 mL, IV Infusion, ONCE, 1 dose, On Sun11/03/22 at 1145, SKYLAR [facility] butalbital- acetaminoph en-caff (ESGIC) 50-325-40 mg tablet 1 tablet 11-03 16:00: 00 11-03 16:21 :00 No 1{tbl} 1 tablet, Oral, ONCE, 1 dose, On Sun11/03/22 at 1100, SKYLAR [facility] dexamethaso ne sod phos PF injection 10 mg 11-03 16:00: 00 11-03 16:27 :00 No 10mg 10 mg, Slow IV Push, ONCE, 1 dose, On Sun11/03/22 at 1100, 1 mL [facility] metoclopram chelo HCl (REGLAN) injection 10 mg 11-03 16:00: 00 11-03 16:28 :00 No 10mg 10 mg, Slow IV Push, ONCE, 1 dose, [facility] (BENADRYL[facility] injection 25 mg 11-03 16:00: 00 11-03 16:30 :00 No 25mg 25 mg, Slow IV Push, ONCE, 1 dose, On Sun11/03/22 at 1100, STAT [facility] atorvastati n 10 mg tablet 11-03 10:48: 00 11-03 00:00 :00 No 10mg Take 10 mg by mouth at bedtime. [facility] butalbital- acetaminoph en-caff 50-325-40 mg tablet 11-03 00:00: 00 Yes [id number] 1{tbl} Take 1 tablet by mouth every 6 (six) hours as needed for Pain (scale 7-10) or Pain (scale 4-6) for up to 12 doses. [facility] peg-electro lyte soln 236-22.74-6 .74 -5.86 gram solution 10-19 00:00: 00 11-03 00:00 :00 No [id number] Take as directed before colonoscop y [facility] busPIRone 15 mg tablet 10-04 00:00: 00 12-13 00:00 :00 No [id number] 15mg Take 1 tablet by mouth in the morning and 1 tablet in the evening. [facility] clonazePAM 1 mg tablet 09-28 00:00: 00 12-20 00:00 :00 No [id number] Take 1 tablet by mouth twice daily as needed for anxiety. [facility] DULoxetine 60 mg capsule 09-26 00:00: 00 11-22 00:00 :00 No [id number] 60mg Take 1 capsule by mouth in the morning and 1 capsule in the evening. [facility] lamoTRIgine 100 mg tablet 09-13 00:00: 00 12-20 00:00 :00 No [id number] 100mg Take 1 tablet by mouth in the morning and 1 tablet in the evening. [facility] lithium carbonate CR 450 mg SR tablet 09-13 00:00: 00 11-28 00:00 :00 No [id number] 900mg Take 2 tablets by mouth at bedtime. [facility] busPIRone 10 mg tablet 8-02 00:00: 00 10-04 00:00 :00 No [id number] 10mg Take 1 tablet by mouth in the morning and 1 tablet in the evening. [facility] clonazePAM 1 mg tablet 7-19 00:00: 00 09-25 00:00 :00 No [id number] Take 1 tablet by mouth twice daily as needed for anxiety. [facility] FUROSEMIDE ORAL 14 09:33: 26 07-26 00:00 :00 No 40mg Take 40 mg by mouth daily. [facility] traZODone 50 mg tablet 07-26 00:00: 00 11-28 00:00 :00 No [id number] 50mg Take 1 tablet by mouth at bedtime. May cut tablet in half. [facility] DULoxetine 60 mg capsule 07-26 00:00: 00 09-25 00:00 :00 No [id number] 60mg Take 1 capsule by mouth in the morning and 1 capsule in the evening. [facility] lamoTRIgine 100 mg tablet 07-26 00:00: 00 09-13 00:00 :00 No [id number] 100mg Take 1 tablet by mouth in the morning and 1 tablet in the evening. [facility] lithium carbonate CR 450 mg SR tablet 07-26 00:00: 00 09-13 00:00 :00 No [id number] 900mg Take 2 tablets by mouth at bedtime. [facility] busPIRone 10 mg tablet 07-26 00:00: 00 09-13 00:00 :00 No [id number] 10mg Take 1 tablet by mouth in the morning and 1 tablet in the evening. [facility] lamoTRIgine 100 mg tablet 07-19 00:00: 00 07-26 00:00 :00 No [id number] 100mg Take 1 tablet by mouth in the morning and 1 tablet in the evening. [facility] clonazePAM 1 mg tablet 24 00:00: 00 08-29 00:00 :00 No [id number] Take 1 tablet by mouth twice daily as needed for anxiety. [facility] DULoxetine 60 mg capsule 2022-0 5-09 00:00: 00 07-26 00:00 :00 No [id number] 60mg Take 1 capsule by mouth in the morning and 1 capsule in the evening. [facility] lithium carbonate CR 450 mg SR tablet 5-09 00:00: 00 07-26 00:00 :00 No [id number] 900mg Take 2 tablets by mouth at bedtime. [facility] traZODone 50 mg tablet - 00:00: 00 07-26 00:00 :00 No [id number] 50mg Take 1 tablet by mouth at bedtime. May cut tablet in half. [facility] lamoTRIgine 100 mg tablet -09 00:00: 00 07-19 00:00 :00 No [id number] 100mg Take 1 tablet by mouth in the morning and 1 tablet in the evening. [facility] clonazePAM 1 mg tablet 09 00:00: 00 07-05 00:00 :00 No [id number] Take 1 tablet by mouth twice daily as needed for anxiety. [facility] DULoxetine 60 mg capsule 2022-0 09 00:00: 00 06-17 00:00 :00 No [id number] 60mg Take 1 capsule by mouth in the morning and 1 capsule in the evening. [facility] lithium carbonate CR 450 mg SR tablet 0 3-09 00:00: 00 06-17 00:00 :00 No [id number] 900mg Take 2 tablets by mouth at bedtime. [facility] lamoTRIgine 100 mg tablet 0 1- 00:00: 00 04-20 00:00 :00 No [id number] 100mg Take 1 tablet by mouth in the morning and 1 tablet in the evening. [facility] traZODone 50 mg tablet -04 00:00: 00 04-20 00:00 :00 No [id number] 50mg Take 1 tablet by mouth at bedtime. May cut tablet in half. [facility] lithium carbonate CR 450 mg SR tablet -04 00:00: 00 04-20 00:00 :00 No [id number] 900mg Take 2 tablets by mouth at bedtime. [facility] DULoxetine 60 mg capsule - 00:00: 00 04-19 00:00 :00 No [id number] 60mg Take 1 capsule by mouth in the morning and 1 capsule in the evening. [facility] clonazePAM 1 mg tablet 02-15 00:00: 00 04-19 00:00 :00 No [id number] Take 1 tablet by mouth twice daily as needed for anxiety. [facility] lamoTRIgine 100 mg tablet 02-15 00:00: 00 03-09 00:00 :00 No [id number] 100mg Take 1 tablet by mouth in the morning and 1 tablet in the evening. [facility] lithium 600 mg capsule 02-15 00:00: 00 02-15 00:00 :00 No [id number] 600mg Take 1 capsule by mouth in the morning and 1 capsule in the evening. [facility] DULoxetine 60 mg capsule 2021-02 2-28 00:00: 00 02-15 00:00 :00 No [id number] 60mg Take 1 capsule by mouth in the morning and 1 capsule in the evening. [facility] lamoTRIgine 100 mg tablet 2021-02 2-22 00:00: 00 02-15 00:00 :00 No [id number] 100mg Take 1 tablet by mouth in the morning and 1 tablet in the evening. [facility] traZODone 50 mg tablet 2021-02 1-30 00:00: 00 02-15 00:00 :00 No [id number] 50mg Take 1 tablet by mouth at bedtime. May cut tablet in half. [facility] lamoTRIgine 100 mg tablet 2021-02 00:00: 00 02-02 00:00 :00 No [id number] 100mg Take 1 tablet by mouth in the morning and 1 tablet in the evening. [facility] clonazePAM 1 mg tablet 2021-02 00:00: 00 02-15 00:00 :00 No [id number] Take 1 tablet by mouth twice daily as needed for anxiety. [facility] DULoxetine 60 mg capsule 2021-02 00:00: 00 02-07 00:00 :00 No [id number] 60mg Take 1 capsule by mouth in the morning and 1 capsule in the evening. [facility] traZODone 50 mg tablet 2021-02 00:00: 00 01-11 00:00 :00 No [id number] 50mg Take 1 tablet by mouth at bedtime. May cut tablet in half. [facility] DULoxetine 60 mg capsule 2021-02 0-25 00:00: 00 01-09 00:00 :00 No [id number] 60mg Take 1 capsule by mouth in the morning and 1 capsule in the evening. [facility] lithium 600 mg capsule 2021-02 0-20 00:00: 00 02-15 00:00 :00 No [id number] 600mg Take 1 capsule by mouth in the morning and 1 capsule in the evening. [facility] lamoTRIgine 25 mg tablet 2021-02 0-20 00:00: 00 01-11 00:00 :00 No [id number] 50mg Take 2 tablets by mouth in the morning and 2 tablets in the evening. [facility] clonazePAM 1 mg tablet 2021-02 0-20 00:00: 00 01-09 00:00 :00 No [id number] Take 1 tablet by mouth twice daily as needed for anxiety. [facility] lamoTRIgine 25 mg tablet 2021-0 8-26 00:00: 00 11-30 00:00 :00 No [id number] 50mg Take 2 tablets by mouth in the morning and 2 tablets in the evening. [facility] clonazePAM 1 mg tablet 8 00:00: 00 11-30 00:00 :00 No [id number] Take no more than 1 mg twice daily as needed for anxiety [facility] lithium 600 mg capsule 8 00:00: 00 11-30 00:00 :00 No [id number] 600mg Take 1 capsule by mouth in the morning and 1 capsule in the evening. [facility] Lamotrigine 50 mg tablet 10-06 00:00: 00 10-07 00:00 :00 No [id number] 50mg Take 1 tablet by mouth in the morning and 1 tablet in the evening. [facility] Lamotrigine 50 mg tablet 09-22 00:00: 00 10-06 00:00 :00 No [id number] 50mg Take 1 tablet by mouth in the morning and 1 tablet in the evening. [facility] DULoxetine 60 mg capsule 09-07 00:00: 00 12-05 00:00 :00 No [id number] 60mg Take 1 capsule by mouth in the morning and 1 capsule in the evening. [facility] Lamotrigine 50 mg tablet 18 00:00: 00 09-22 00:00 :00 No [id number] 50mg Take 1 tablet by mouth in the morning and 1 tablet in the evening. [facility] lithium 600 mg capsule 7-13 00:00: 00 10-06 00:00 :00 No [id number] 600mg Take 1 capsule by mouth in the morning and 1 capsule in the evening. [facility] DULoxetine 60 mg capsule 6 00:00: 00 Yes [id number] 60mg Take 1 capsule by mouth 2 (two) times daily. [facility] traZODone 50 mg tablet 6 00:00: 00 01-02 00:00 :00 No [id number] 50mg Take 1 tablet by mouth at bedtime. May cut tablet in half. [facility] clonazePAM 1 mg tablet 08-09 00:00: 00 10-06 00:00 :00 No [id number] Take no more than 1 mg twice daily as needed for anxiety [facility] DULoxetine 60 mg capsule 05-26 00:00: 00 08-09 00:00 :00 No [id number] 60mg Take 1 capsule by mouth 2 (two) times daily. [facility] traZODone 50 mg tablet 05-26 00:00: 00 08-09 00:00 :00 No [id number] 50mg Take 1 tablet by mouth at bedtime. May cut tablet in half. [facility] vitamin B-12 1,000 mcg tablet 05-23 00:00: 00 11-03 00:00 :00 No [id number] 1000ug Take 1 tablet by mouth daily. [facility] cyanocobala min 1,000 mcg/mL injection 05-23 00:00: 00 11-03 00:00 :00 No [id number] 1000ug 1 mL by Intramuscu lar route weekly. [facility] losartan potassium (LOSARTAN ORAL) 05-17 09:24: 36 Yes 20mg Take 20 mg by mouth. [facility] FUROSEMIDE ORAL 05-17 09:24: 36 Yes 40mg Take 40 mg by mouth daily. [facility] magnesium gluconate 200 mg tablet 05-17 00:00: 00 Yes [id number] 400mg Take 2 tablets by mouth 2 (two) times daily. [facility] gabapentin 300 mg capsule 05-17 00:00: 00 11-03 00:00 :00 No [id number] 300mg Take 1 capsule by mouth 3 (three) times daily. [facility] rizatriptan 5 mg disintegrat ing tablet 05-17 00:00: 00 11-03 00:00 :00 No [id number] 5mg Take 1 tablet by mouth as needed for Migraine (Take 5mg at the beginning of the headache can repeat 2h after if headaches persists). May repeat in 2 hours if needed [facility] magnesium gluconate 200 mg tablet 4-05 00:00: 00 11-03 00:00 :00 No [id number] 400mg Take 2 tablets by mouth 2 (two) times daily. [facility] artificial tears,hypro mellose, 0.5 % ophthalmic drops 405 00:00: 00 06-22 00:00 :00 No [id number] 1[drp] Place 1 Drop in left eye as needed for Dry eyes. [facility] clonazePAM 1 mg tablet 3-31 00:00: 00 08-09 00:00 :00 No [id number] Take no more than 1 mg twice daily as needed for anxiety [facility] lithium 600 mg capsule 3-30 00:00: 00 06-12 00:00 :00 No [id number] 600mg Take 1 capsule by mouth 2 (two) times daily. [facility] ondansetron (ZOFRAN ODT) 4 mg disintegrat ing tablet 09-02 00:00: 00 11-03 00:00 :00 No [id number] 4mg Take 1 tablet by mouth every 8 (eight) hours as needed for Nausea and Vomiting (N/V). [facility] butalbital- acetaminoph en-caff 50-325-40 mg tablet 09-02 00:00: 00 06-22 00:00 :00 No [id number] 1{tbl} Take 1 tablet by mouth every 6 (six) hours as needed for Pain (scale 7-10). [facility] allopurinoL 100 mg tablet 08-05 13:17: 52 Yes 100mg Take 100 mg by mouth daily. [facility] atorvastati n 10 mg tablet 08-05 13:17: 52 Yes 10mg Take 10 mg by mouth at bedtime. [facility] propranolol 80 mg tablet 08-05 13:12: 38 Yes 80mg Take 80 mg by mouth 2 (two) times daily. [facility] Immunizations Ordered Immunization Name Filled Immunization Name Date Status Comments Source TDAP Unknown Completed [facility] Influenza Virus Vaccine Quad .5 mL IM 6+ MO (FLUZONE/FLULAVAL/FL UARIX) Unknown Completed [facility] SARS-COV-2 COVID-19 VACCINE - (MODERNA) Unknown Completed [facility] SARS-COV-2 COVID-19 VACCINE - (MODERNA) Unknown Completed [facility] TDAP Unknown Completed [facility] Influenza Virus Vaccine Quad .5 mL IM 6+ MO (FLUZONE/FLULAVAL/FL UARIX) Unknown Completed [facility] SARS-COV-2 COVID-19 VACCINE - (MODERNA) Unknown Completed [facility] SARS-COV-2 COVID-19 VACCINE - (MODERNA) Unknown [facility] TDAP Unknown Completed [facility] Influenza Virus Vaccine Quad .5 mL IM 6+ MO (FLUZONE/FLULAVAL/FL UARIX) Unknown Completed [facility] SARS-COV-2 COVID-19 VACCINE - (MODERNA) Unknown Completed [facility] SARS-COV-2 COVID-19 VACCINE - (MODERNA) Unknown Completed [facility] TDAP Unknown Completed [facility] Influenza Virus Vaccine Quad .5 mL IM 6+ MO (FLUZONE/FLULAVAL/FL UARIX) Unknown Completed [facility] SARS-COV-2 COVID-19 VACCINE - (MODERNA) Unknown Completed [facility] SARS-COV-2 COVID-19 VACCINE - (MODERNA) Unknown Completed [facility] TDAP Unknown Completed [facility] Influenza Virus Vaccine Quad .5 mL IM 6+ MO (FLUZONE/FLULAVAL/FL UARIX) Unknown Completed [facility] SARS-COV-2 COVID-19 VACCINE - (MODERNA) Unknown Completed [facility] SARS-COV-2 COVID-19 VACCINE - (MODERNA) Unknown Completed [facility] TDAP Unknown Completed [facility] Influenza Virus Vaccine Quad .5 mL IM 6+ MO (FLUZONE/FLULAVAL/FL UARIX) Unknown Completed [facility] SARS-COV-2 COVID-19 VACCINE - (MODERNA) Unknown Completed [facility] SARS-COV-2 COVID-19 VACCINE - (MODERNA) Unknown Completed [facility] TDAP Unknown Completed [facility] Influenza Virus Vaccine Quad .5 mL IM 6+ MO (FLUZONE/FLULAVAL/FL UARIX) Unknown Completed [facility] SARS-COV-2 COVID-19 VACCINE - (MODERNA) Unknown Completed [facility] SARS-COV-2 COVID-19 VACCINE - (MODERNA) Unknown Completed [facility] TDAP Unknown Completed [facility] Influenza Virus Vaccine Quad .5 mL IM 6+ MO (FLUZONE/FLULAVAL/FL UARIX) Unknown Completed [facility] SARS-COV-2 COVID-19 VACCINE - (MODERNA) Unknown Completed [facility] SARS-COV-2 COVID-19 VACCINE - (MODERNA) Unknown Completed [facility] TDAP Unknown Completed [facility] Influenza Virus Vaccine Quad .5 mL IM 6+ MO (FLUZONE/FLULAVAL/FL UARIX) Unknown Completed [facility] SARS-COV-2 COVID-19 VACCINE - (MODERNA) Unknown Completed [facility] SARS-COV-2 COVID-19 VACCINE - (MODERNA) Unknown Completed [facility] Vital Signs Vital Name Observation Time Observation Value Comments S ource Systolic blood pressure 2023-02-15 15:53:00 132 mm[Hg] [facility] Diastolic blood pressure 2023-02-15 15:53:00 73 mm[Hg] [facility] Heart rate 2023-02-15 15:53:00 74 /min [facility] Body temperature 2023-02-15 15:53:00 36.44 Verna [facility] Respiratory rate 2023-02-15 15:53:00 16 /min [facility] Body height 2023-02-15 15:53:00 167.6 cm [facility] Body weight 2023-02-15 15:53:00 100.336 kg [facility] BMI 2023-02-15 15:53:00 35.70 kg/m2 [facility] Oxygen saturation in Arterial blood by Pulse oximetry 2023-02-15 15:53:00 100 /min [facility] Systolic blood pressure 2022-11-13 14:08:00 117 mm[Hg] [facility] Diastolic blood pressure 2022-11-13 14:08:00 70 mm[Hg] [facility] Heart rate 2022-11-13 14:08:00 64 /min [facility] Respiratory rate 2022-11-13 14:08:00 12 /min [facility] Oxygen saturation in Arterial blood by Pulse oximetry 2022-11-13 14:08:00 99 /min [facility] Body temperature 2022-11-13 13:38:00 36.39 Verna [facility] Body height 2022-11-13 12:15:00 167.6 cm [facility] Body weight 2022-11-13 12:15:00 95.21 kg [facility] BMI 2022-11-13 12:15:00 33.88 kg/m2 [facility] Systolic blood pressure 2022-11-13 12:15:00 142 mm[Hg] [facility] Diastolic blood pressure 2022-11-13 12:15:00 66 mm[Hg] [facility] Heart rate 2022-11-13 12:15:00 77 /min [facility] Body temperature 2022-11-13 12:15:00 36 Verna [facility] Respiratory rate 2022-11-13 12:15:00 21 /min [facility] Body height 2022-11-13 12:15:00 167.6 cm [facility] Body weight 2022-11-13 12:15:00 95.21 kg [facility] BMI 2022-11-13 12:15:00 33.88 kg/m2 [facility] Oxygen saturation in Arterial blood by Pulse oximetry 2022-11-13 12:15:00 95 /min [facility] Systolic blood pressure 2022-11-03 15:35:00 154 mm[Hg] [facility] Diastolic blood pressure 2022-11-03 15:35:00 86 mm[Hg] [facility] Heart rate 2022-11-03 15:35:00 86 /min [facility] Body temperature 2022-11-03 15:35:00 37 Verna [facility] Respiratory rate 2022-11-03 15:35:00 18 /min [facility] Body height 2022-11-03 15:35:00 167.6 cm [facility] Body weight 2022-11-03 15:35:00 97.523 kg [facility] BMI 2022-11-03 15:35:00 34.70 kg/m2 [facility] Oxygen saturation in Arterial blood by Pulse oximetry 2022-11-03 15:35:00 99 /min [facility] Systolic blood pressure 2022-10-19 12:35:00 159 mm[Hg] Provider Notified [facility] Diastolic blood pressure 2022-10-19 12:35:00 85 mm[Hg] Provider Notified [facility] Heart rate 2022-10-19 12:35:00 94 /min [facility] Body temperature 2022-10-19 12:33:00 36.78 Verna [facility] Respiratory rate 2022-10-19 12:33:00 16 /min [facility] Body height 2022-10-19 12:33:00 167.6 cm [facility] Body weight 2022-10-19 12:33:00 96.616 kg [facility] BMI 2022-10-19 12:33:00 34.38 kg/m2 [facility] Oxygen saturation in Arterial blood by Pulse oximetry 2022-10-19 12:33:00 98 /min [facility] Systolic blood pressure 2023-02-15 15:53:00 132 mm[Hg] [facility] Diastolic blood pressure 2023-02-15 15:53:00 73 mm[Hg] [facility] Heart rate 2023-02-15 15:53:00 74 /min [facility] Body temperature 2023-02-15 15:53:00 36.44 Verna [facility] Respiratory rate 2023-02-15 15:53:00 16 /min [facility] Body height 2023-02-15 15:53:00 167.6 cm [facility] Body weight 2023-02-15 15:53:00 100.336 kg [facility] BMI 2023-02-15 15:53:00 35.70 kg/m2 [facility] Oxygen saturation in Arterial blood by Pulse oximetry 2023-02-15 15:53:00 100 /min [facility] Systolic blood pressure 2023-01-22 15:03:00 144 mm[Hg] [facility] Diastolic blood pressure 2023-01-22 15:03:00 83 mm[Hg] [facility] Heart rate 2023-01-22 15:03:00 97 /min [facility] Respiratory rate 2023-01-22 15:00:00 18 /min [facility] Body height 2023-01-22 15:00:00 167.6 cm [facility] Body weight 2023-01-22 15:00:00 95.2 kg [facility] BMI 2023-01-22 15:00:00 33.88 kg/m2 [facility] Systolic blood pressure 2022-11-13 14:08:00 117 mm[Hg] [facility] Diastolic blood pressure 2022-11-13 14:08:00 70 mm[Hg] [facility] Heart rate 2022-11-13 14:08:00 64 /min [facility] Respiratory rate 2022-11-13 14:08:00 12 /min [facility] Oxygen saturation in Arterial blood by Pulse oximetry 2022-11-13 14:08:00 99 /min [facility] Body temperature 2022-11-13 13:38:00 36.39 Verna [facility] Body height 2022-11-13 12:15:00 167.6 cm [facility] Body weight 2022-11-13 12:15:00 95.21 kg [facility] BMI 2022-11-13 12:15:00 33.88 kg/m2 [facility] Systolic blood pressure 2022-11-03 15:35:00 154 mm[Hg] [facility] Diastolic blood pressure 2022-11-03 15:35:00 86 mm[Hg] [facility] Heart rate 2022-11-03 15:35:00 86 /min [facility] Body temperature 2022-11-03 15:35:00 37 Verna [facility] Respiratory rate 2022-11-03 15:35:00 18 /min [facility] Body height 2022-11-03 15:35:00 167.6 cm [facility] Body weight 2022-11-03 15:35:00 97.523 kg [facility] BMI 2022-11-03 15:35:00 34.70 kg/m2 [facility] Oxygen saturation in Arterial blood by Pulse oximetry 2022-11-03 15:35:00 99 /min [facility] Systolic blood pressure 2022-10-04 14:26:00 149 mm[Hg] [facility] Diastolic blood pressure 2022-10-04 14:26:00 76 mm[Hg] [facility] Heart rate 2022-10-04 14:26:00 78 /min [facility] Respiratory rate 2022-10-04 14:21:00 18 /min [facility] Body height 2022-10-04 14:21:00 167.6 cm [facility] Body weight 2022-10-04 14:21:00 96.843 kg [facility] BMI 2022-10-04 14:21:00 34.46 kg/m2 [facility] Systolic blood pressure 2022-07-26 13:22:00 135 mm[Hg] [facility] Diastolic blood pressure 2022-07-26 13:22:00 78 mm[Hg] [facility] Heart rate 2022-07-26 13:22:00 85 /min [facility] Respiratory rate 2022-07-26 13:22:00 18 /min [facility] Body height 2022-07-26 13:22:00 167.6 cm [facility] Body weight 2022-07-26 13:22:00 97.523 kg [facility] BMI 2022-07-26 13:22:00 34.70 kg/m2 [facility] Systolic blood pressure 2022-02-15 14:59:00 131 mm[Hg] [facility] Diastolic blood pressure 2022-02-15 14:59:00 70 mm[Hg] [facility] Heart rate 2022-02-15 14:59:00 81 /min [facility] Respiratory rate 2022-02-15 14:59:00 18 /min [facility] Body height 2022-02-15 14:59:00 167.6 cm [facility] Body weight 2022-02-15 14:59:00 102.967 kg [facility] BMI 2022-02-15 14:59:00 36.64 kg/m2 [facility] Respiratory rate 2022-01-11 17:11:00 18 /min [facility] Body height 2022-01-11 17:11:00 167.6 cm [facility] Body weight 2022-01-11 17:11:00 100.699 kg [facility] BMI 2022-01-11 17:11:00 35.83 kg/m2 [facility] Systolic blood pressure 2021-08-24 14:24:00 133 mm[Hg] [facility] Diastolic blood pressure 2021-08-24 14:24:00 73 mm[Hg] [facility] Heart rate 2021-08-24 14:24:00 69 /min [facility] Respiratory rate 2021-08-24 14:24:00 18 /min [facility] Body height 2021-08-24 14:24:00 167.6 cm [facility] Body weight 2021-08-24 14:24:00 100.245 kg [facility] BMI 2021-08-24 14:24:00 35.67 kg/m2 [facility] Oxygen saturation in Arterial blood by Pulse oximetry 2021-06-07 15:30:00 96 /min [facility] Body temperature 2021-06-07 14:20:30 37.44 Verna [facility] Procedures Procedure Date / Time Performed Performing Clinician Source IRON PANEL 2023-02-15 16:30:00 Eliida Cordero [facility] FERRITIN SERUM 2023-02-15 16:30:00 Elidia Cordero [facility] LITHIUM 2023-01-22 16:35:00 Rosalind Freed [facility] CONSENT/REFUSAL FOR DIAGNOSI S AND TREATMENT 2023-01-22 14:56:09 Doctor Unassigned, Tat Momoli [facility] CONSENT/REFUSAL FOR DIAGNOSI S AND TREATMENT 2023-01-22 14:56:09 Doctor Unassigned, Tat Momoli [facility] SURGICAL PATHOLOGY EXAM 2022-11-13 13:05:00 [facility] ESOPHAGOGASTRODUODENOSCOPY 2022-11-13 12:47:00 [facility] COLONOSCOPY 2022-11-13 12:47:00 [facility] ESOPHAGOGASTRODUODENOSCOPY 2022-11-13 12:47:00 [facility] COLONOSCOPY 2022-11-13 12:47:00 [facility] COLONOSCOPY (ENDO) 2022-11-13 12:28:53 Jae Holloway [facility] COLONOSCOPY (ENDO) 2022-11-13 12:28:53 Jewel [facility] COLONOSCOPY (ENDO) 2022-11-13 12:28:53 Jae Holloway [facility] EGD (ENDO) 2022-11-13 12:19:29 Jae Holloway [facility] EGD (ENDO) 2022-11-13 12:19:29 [facility] EGD (ENDO) 2022-11-13 12:19:29 Jae Holloway [facility] CONSENT/REFUSAL FOR DIAGNOSI S AND TREATMENT 2022-11-13 12:17:09 Doctor Unassigned, Tat Momoli [facility] CONSENT/REFUSAL FOR DIAGNOSI S AND TREATMENT 2022-11-13 12:17:09 Doctor Unassigned, Tat Momoli [facility] ASSIGNMENT OF BENEFITS 2022-11-13 11:59:03 Doctor Unassigned, Tat Momoli [facility] ASSIGNMENT OF BENEFITS 2022-11-13 11:59:03 Doctor Unassigned, Tat Momoli [facility] ENDOSCOPY PROCEDURE DOCUMENTATION 2022-02 002 05:01:00 Doctor Unassigned, Tat Momoli [facility] ENDOSCOPY PROCEDURE DOCUMENTATION 2022-02 002 05:01:00 Doctor Unassigned, Tat Momoli [facility] COMP. METABOLIC PANEL (95893) 2022-11-03 16:24:00 Dora Newman [facility] CBC WITH DIFF 2022-11-03 16:24:00 Dora Newman [facility] POCT TEST 2022-11-03 16:24:00 Dora Newman [facility] CBC WITH DIFF 2022-11-03 16:24:00 Dora Newman [facility] POCT TEST 2022-11-03 16:24:00 Dora Newman [facility] COMP. METABOLIC PANEL ([id number]) 2022-11-03 16:24:00 Dora Newman [facility] URINALYSIS 2022-11-03 16:18:00 Dora Newman [facility] URINALYSIS 2022-11-03 16:18:00 Dora Newman [facility] RAPID STREP SCREEN FOR GROUP A 2022-10-14 2 16:14:00 Dora Newman [facility] RAPID STREP SCREEN FOR GROUP A 2022-10-14 2 16:14:00 Dora Newman [facility] THROAT CULTURE 2022-11-03 16:14:00 Dora Newman [facility] CONSENT/REFUSAL FOR DIAGNOSI S AND TREATMENT 2022-11-03 15:27:05 Doctor Unassigned, Tat Momoli [facility] CONSENT/REFUSAL FOR DIAGNOSI S AND TREATMENT 2022-11-03 15:27:05 Doctor Unassigned, Tat Momoli [facility] EMERGENCY SERVICES AGREEMENT S AND AUTHORIZATIONS 2022-11-03 05:01:00 Doctor Unassigned, Tat Momoli [facility] HELICOBACTER PYLORI ANTIGEN, FECAL BY EIA 2022-10-19 13:44:00 Elidia Cordero [facility] HELICOBACTER PYLORI ANTIGEN, FECAL BY EIA 2022-10-19 13:44:00 Elidia Cordero [facility] FERRITIN SERUM 2022-10-19 13:35:00 Elidia Cordero [facility] IRON PANEL 2022-10-19 13:35:00 Elidia Cordero [facility] CELIAC SCREEN 2022-10-19 13:35:00 Elidia Cordero [facility] LAB ONLY CELIAC SCREEN IGA 2022-10-19 13:35:00 Elidia Cordero [facility] IRON PANEL 2022-10-19 13:35:00 Elidia Cordero [facility] CELIAC SCREEN 2022-10-19 13:35:00 Elidia Cordero [facility] FERRITIN SERUM 2022-10-19 13:35:00 Elidia Cordero [facility] LAB ONLY CELIAC SCREEN IGA 2022-10-19 13:35:00 Elidia Cordero [facility] DISCLOSURE AND CONSENT, [facility] AND SURGICAL PROCEDURES 2022-10-19 05:01:00 Doctor Unassigned, Tat Momoli [facility] DISCLOSURE AND CONSENT, [facility] AND SURGICAL PROCEDURES 2022-10-19 05:01:00 Doctor Unassigned, Tat Momoli [facility] REFERRAL- REQUEST/RESPONSE 2022-10-12 05:01:00 Doctor Unassigned, Tat Momoli [facility] REFERRAL- REQUEST/RESPONSE 2022-10-12 05:01:00 Doctor Unassigned, Tat Momoli [facility] THYROID STIMULATING HORMONE 2022-10-05 15:15:00 Abdiaziz [facility] COMP. METABOLIC PANEL ([id number]) 2022-10-05 15:15[facility] LIP[facility] ([id number])(TOTAL CHOLESTEROL, TRIGLYCERIDES, HDL) 2022-10-05 15:15:00 Rosalind Freed [facility] LITHIUM 2022-10-05 15:15:00 Sara Hester [facility] CBC WITH DIFF 2022-10-05 15:15:00 Abdiaziz [facility] GLYCOSYLATED HEMOGLOBIN (A1C) 2022-10-05 15:15:00 Abdiaziz [facility] CBC WITH DIFF 2022-10-05 15:15:00 [facility] COMP. METABOLIC PANEL ([id number]) 2022-10-05 15:15:00 [facility] GLYCOSYLATED HEMOGLOBIN (A1C) 2022-10-05 15:15:00 [facility] LIPID PANEL ([id number])(TOTAL CHOLESTEROL, TRIGLYCERIDES, HDL) 2022-10-05 15:15:00 [facility] TH[facility]RO[facility] HORMONE 2022-10-05 15:15:00 Abdiaziz [facility] LITHIUM 2022-10-05 15:15:00 Sara Hester [facility] ASSIGNMENT OF BENEFITS 2022-10-04 14:17:30 Doctor Unassigned, Tat Momoli [facility] ASSIGNMENT OF BENEFITS 2022-10-04 14:17:30 Doctor Unassigned, Tat Momoli [facility] LITHIUM 2022-07-26 14:49:00 Angela Sage [facility] PATIENT FINANCIAL POLICY 2022-07-26 13:16:12 Doctor Unassigned, Tat Momoli [facility] PATIENT FINANCIAL POLICY 2022-07-26 13:16:12 Doctor Unassigned, Tat Momoli [facility] EXTERNAL PROVIDER RECORDS 2022-04-08 06:01:00 Doctor Unassigned, Tat Momoli [facility] EXTERNAL PROVIDER RECORDS 2022-04-08 06:01:00 Doctor Unassigned, Tat Momoli [facility] EXTERNAL PROVIDER RECORDS 2022-02-21 06:01:00 Doctor Unassigned, Tat Momoli [facility] EXTERNAL PROVIDER RECORDS 2022-02-21 06:01:00 Doctor Unassigned, Tat Momoli [facility] LITHIUM 2022-02-15 15:58:00 Angela Sage [facility] CONSENT/REFUSAL FOR DIAGNOSI S AND TREATMENT 2022-01-11 17:10:16 Doctor Unassigned, Tat Momoli [facility] CONSENT/REFUSAL FOR DIAGNOSI S AND TREATMENT 2022-01-11 17:10:16 Doctor Unassigned, Tat Momoli [facility] EXTERNAL PROVIDER RECORDS 2020-11-26 05:01:00 Doctor Unassigned, Tat Momoli [facility] Encounters Start Date/Time End Date/Time Encounter Type Admission Type Attending [facility] Care Facility Care Department Encounter ID Source 2020-12-13 10:09:54 Emergency [facility] [id number] [facility] 2020-12-11 04:02:45 Emergency [facility] [id number] [facility] 2023-05-22 08:17:37 2023-05-22 08:17:37 Outpatient [facility] [id number] Robert Cali 2023-05-11 00:00:00 2023-05-11 00:00:00 Telephone Elidia Cordero [facility] 1.2.840.114 350.1.13.10 4.2.7.2.686 [id number] [facility] 2023-05-09 00:00:00 2023-05-09 00:00:00 Patient Secure Msg [facility] 1.2.840.114 350.1.13.10 4.2.7.2.686 [id number] [facility] 2023-05-08 10:00:00 2023-05-08 10:00:00 Outpatient EMILIA WU [facility] [id number] [facility] 2023-04-18 08:00:00 2023-04-18 08:00:00 Outpatient FARZANA UGALDE [facility] [id number] [facility] 2023-04-17 00:00:00 2023-04-17 00:00:00 Travel 1.2.840.1 [id number] 3.104.2.7 .3.039716 .8 1.2.840.114 350.1.13.10 4.2.7.3.698 084.8 [id number] [facility] 2023-04-11 13:00:00 2023-04-11 13:00:00 Outpatient EMILIA WU [facility] [id number] [facility] 2023-04-11 13:00:00 2023-04-11 13:00:00 Outpatient R EMILIA SNOWEDN [facility] [id number] [facility] 2023-04-04 08:00:00 2023-04-04 08:00:00 Outpatient R [facility] [id number] [facility] 2023-04-02 00:00:00 2023-04-02 00:00:00 Travel 1.2.840.1 [id number] 3.104.2.7 .3.745891 .8 1.2.840.114 350.1.13.10 4.2.7.3.698 084.8 [id number] [facility] 2023-03-28 00:00:00 2023-03-28 00:00:00 Patient Secure Msg Doctor Unassigned, Tat Momoli 1.2.840.1 [id number] 3.104.2.7 .3.592598 .8 [id number] [facility] 2023-03-09 00:00:00 2023-03-09 00:00:00 Telephone Elidia Cordero 1.2.840.1 [id number] 3.104.2.7 .3.573776 .8 [id number] [facility] 2023-03-08 00:00:00 2023-03-08 00:00:00 Telephone Elidia Cordero 1.2.840.1 [id number] 3.104.2.7 .3.828809 .8 [id number] [facility] 2023-02-28 10:15:00 2023-02-28 10:15:00 Outpatient R SARA HESTER KIMBERLY [facility] [id number] [facility] 2023-02-27 00:00:00 2023-02-27 00:00:00 Travel 1.2.840.1 [id number] 3.104.2.7 .3.462791 .8 1.2.840.114 350.1.13.10 4.2.7.3.698 084.8 [id number] [facility] 2023-02-15 10:30:00 2023-02-15 10:45:00 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 Yiselkaterine Jewel Tim c-Lab 1.2.840.1 95616.1.1 3.104.2.7 .3.766700 .8 [id number] [facility] 2023-02-15 09:30:00 2023-02-15 10:00:00 Office Visit Jewel Cunha Abdullah Azzam 1.2.840.1 88034.1.1 3.104.2.7 .3.324697 .8 [id number] [facility] 2023-02-15 09:30:00 2023-02-15 09:30:00 Outpatient JEWEL JARVIS [facility] [id number] [facility] 2023-02-15 00:00:00 2023-02-15 00:00:00 Travel 1.2.840.1 [id number] 3.104.2.7 .3.624191 .8 1.2.840.114 350.1.13.10 4.2.7.3.698 084.8 [id number] [facility] 2023-01-23 13:00:00 2023-01-23 13:00:00 Outpatient R JENNY ARRIAGA RIZWAN [facility] [id number] [facility] 2023-01-22 10:15:00 2023-01-22 10:30:00 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 Dexter Dias Navin Pcp-Lab 1.2.840.1 33315.1.1 3.104.2.7 .3.185667 .8 [id number] [facility] 2023-01-22 09:30:00 2023-01-22 10:07:50 Outpatient R DEXTER DIAS [facility] [id number] [facility] 2023-01-22 00:00:00 2023-01-22 00:00:00 Orders Only Doctor Unassigned, Tat Momoli 1.2.840.1 [id number] 3.104.2.7 .3.705055 .8 [id number] [facility] 2023-01-22 00:00:00 2023-01-22 00:00:00 Travel 1.2.840.1 [id number] 3.104.2.7 .3.366099 .8 1.2.840.114 350.1.13.10 4.2.7.3.698 084.8 [id number] [facility] 2023-01-15 00:00:00 2023-01-15 00:00:00 Telephone Elidia Cordero 1.2.840.1 [id number] 3.104.2.7 .3.999683 .8 [id number] [facility] 2023-01-12 00:00:00 2023-01-12 00:00:00 Patient Secure Dominic Ly 1.2.840.1 [id number] 3.104.2.7 .3.071645 .8 [id number] [facility] 2022-12-29 09:30:00 2022-12-29 09:30:00 Outpatient JENNY SESAY RIZWAN [facility] [id number] [facility] 2022-12-29 00:00:00 2022-12-29 00:00:00 Telephone Elidia Cordero 1.2.840.1 [id number] 3.104.2.7 .3.012333 .8 [id number] [facility] 2022-12-29 00:00:00 2022-12-29 00:00:00 Telephone Elidia Cordero 1.2.840.1 [id number] 3.104.2.7 .3.980549 .8 [id number] [facility] 2022-12-28 00:00:00 2022-12-28 00:00:00 Case Management Elidia Cordero 1.2.840.1 [id number] 3.104.2.7 .3.970620 .8 [id number] [facility] 2022-12-20 16:00:00 2022-12-20 16:46:31 Outpatient R [facility] [id number] [facility] 2022-12-20 09:49:08 2022-12-20 09:49:08 Outpatient [facility] [id number] Robert Ambrose Viraj 2022-12-19 00:00:00 2022-12-19 00:00:00 Travel 1.2.840.1 84387.1.1 3.104.2.7 .3.381054 .8 1.2.840.114 350.1.13.10 4.2.7.3.698 084.8 [id number] [facility] 2022-12-18 09:30:00 2022-12-18 09:30:00 Outpatient R [facility] [id number] [facility] 2022-12-18 00:00:00 2022-12-18 00:00:00 Telephone Elidia Cordero 1.2.840.1 04444.1.1 3.104.2.7 .3.829927 .8 [id number] [facility] 2022-12-14 00:00:00 2022-12-14 00:00:00 Patient Secure Msg Doctor Unassigned, Tat Momoli 1.2.840.1 60869.1.1 3.104.2.7 .3.207261 .8 [id number] [facility] 2022-12-11 08:45:00 2022-12-11 08:45:00 Outpatient R [facility] [id number] [facility] 2022-12-10 00:00:00 2022-12-10 00:00:00 Outpatient GC_GCBZW_Ka diyala_S [facility] [id number] [facility] 2022-12-08 15:30:00 2022-12-08 15:30:00 Outpatient R JENNY ARRIAGA RIZWAN [facility] [id number] [facility] 2022-12-06 08:00:00 2022-12-06 08:00:00 Outpatient R ONEIDA MONTANA [facility] [id number] [facility] 2022-11-29 00:00:00 2022-11-29 00:00:00 Telephone Elidia Cordero 1.2.840.1 96016.1.1 3.104.2.7 .3.676450 .8 [id number] [facility] 2022-11-27 00:00:00 2022-11-27 00:00:00 Telephone Elidia Cordero 1.2.840.1 82256.1.1 3.104.2.7 .3.126407 .8 [id number] [facility] 2022-11-27 00:00:00 2022-11-27 00:00:00 Telephone Elidia Cordero 1.2.840.1 70483.1.1 3.104.2.7 .3.352043 .8 [id number] [facility] 2022-11-23 00:00:00 2022-11-23 00:00:00 Telephone Elidia Cordero 1.2.840.1 74577.1.1 3.104.2.7 .3.243957 .8 [id number] [facility] 2022-11-23 00:00:00 2022-11-23 00:00:00 Telephone Elidia Cordero 1.2.840.1 64723.1.1 3.104.2.7 .3.278949 .8 [id number] [facility] 2022-11-22 09:30:00 2022-11-22 09:30:00 Outpatient R [facility] [id number] [facility] 2022-11-16 00:00:00 2022-11-16 00:00:00 Telephone Elidia Cordero 1.2.840.1 54103.1.1 3.104.2.7 .3.629025 .8 [id number] [facility] 2022-11-16 00:00:00 2022-11-16 00:00:00 Patient Secure Msg Dominic Keita 1.2.840.1 47591.1.1 3.104.2.7 .3.114292 .8 [id number] [facility] 2022-11-13 06:59:00 2022-11-13 09:48:00 Outpatient R DOMINIC KEITA [facility] BRY [id number] [facility] 2022-11-13 06:59:00 2022-11-13 09:48:00 Hospital Encounter Dominic Keita 1.2.840.1 96800.1.1 3.104.2.7 .3.903403 .8 [id number] [facility] 2022-11-13 07:58:00 2022-11-13 08:33:00 Anesthesia Event Hunter Cruz Joan 1.2.840.1 91239.1.1 3.104.2.7 .3.659172 .8 [id number] [facility] 2022-11-13 07:15:00 2022-11-13 08:15:00 Surgery Dominic Keita 1.2.840.1 39008.1.1 3.104.2.7 .3.722036 .8 [id number] [facility] 2022-11-13 00:00:00 2022-11-13 00:00:00 Orders Only Doctor Unassigned, Tat Momoli 1.2.840.1 29423.1.1 3.104.2.7 .3.604055 .8 [id number] [facility] 2022-11-13 00:00:00 2022-11-13 00:00:00 Telephone Dominic Keita 1.2.840.1 18902.1.1 3.104.2.7 .3.243154 .8 [id number] [facility] 2022-11-13 00:00:00 2022-11-13 00:00:00 Travel 1.2.840.1 01709.1.1 3.104.2.7 .3.629982 .8 1.2.840.114 350.1.13.10 4.2.7.3.698 084.8 [id number] [facility] 2022-11-10 00:00:00 2022-11-10 00:00:00 Outpatient R RADIOLOGY [facility] [id number] [facility] 2022-11-10 00:00:00 2022-11-10 00:00:00 Patient Secure Msg Dominic Keita 1.2.840.1 94683.1.1 3.104.2.7 .3.545657 .8 [id number] [facility] 2022-11-09 00:00:00 2022-11-09 00:00:00 Patient Secure Msg Doctor Unassigned, Tat Momoli 1.2.840.1 09373.1.1 3.104.2.7 .3.325753 .8 [id number] [facility] 2022-11-07 00:00:00 2022-11-07 00:00:00 Patient Secure Msg Doctor Unassigned, Tat Momoli 1.2.840.1 23326.1.1 3.104.2.7 .3.886147 .8 [id number] [facility] 2022-11-03 10:36:00 2022-11-03 13:16:00 Emergency X DORA NEWMAN [facility] ERT [id number] [facility] 2022-11-03 10:36:00 2022-11-03 13:16:00 Emergency Dora eNwman G 1.2.840.1 98541.1.1 3.104.2.7 .3.833715 .8 [id number] [facility] 2022-11-03 00:00:00 2022-11-03 00:00:00 Travel 1.2.840.1 96322.1.1 3.104.2.7 .3.543294 .8 1.2.840.114 350.1.13.10 4.2.7.3.698 084.8 [id number] [facility] 2022-10-30 00:00:00 2022-10-30 00:00:00 Case Management Elidia Cordero 1.2.840.1 72841.1.1 3.104.2.7 .3.920356 .8 [id number] [facility] 2022-10-19 08:30:00 2022-10-19 08:45:00 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 Jewel Cunha [facility] 1.2.840.1 86877.1.1 3.104.2.7 .3.783403 .8 [id number] [facility] 2022-10-19 07:30:00 2022-10-19 08:15:30 Outpatient R JEWEL CUNHA [facility] [id number] [facility] 2022-10-19 07:30:00 2022-10-19 08:15:30 Office Visit Jewel Cunha Abdullah Azzam 1.2.840.1 98314.1.1 3.104.2.7 .3.853503 .8 [id number] [facility] 2022-10-19 00:00:00 2022-10-19 00:00:00 Orders Only Doctor Unassigned, Tat Momoli 1.2.840.1 79610.1.1 3.104.2.7 .3.644963 .8 [id number] [facility] 2022-10-18 00:00:00 2022-10-18 00:00:00 Travel 1.2.840.1 41371.1.1 3.104.2.7 .3.868022 .8 1.2.840.114 350.1.13.10 4.2.7.3.698 084.8 [id number] [facility] 2022-10-12 09:56:06 2022-10-12 09:56:06 Outpatient [facility] [id number] Robert Cali 2022-10-12 00:00:00 2022-10-12 00:00:00 Orders Only Doctor Unassigned, Tat Momoli 1.2.840.1 68686.1.1 3.104.2.7 .3.977126 .8 [id number] [facility] 2022-10-05 10:15:00 2022-10-05 10:30:00 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 Kath Vences, [facility] 1.2.840.1 02942.1.1 3.104.2.7 .3.263077 .8 [id number] [facility] 2022-10-05 10:15:00 2022-10-05 10:15:00 Outpatient KATH CABRAL [facility] [id number] [facility] 2022-10-04 09:30:00 2022-10-04 10:30:11 Outpatient DEXTER MIRELES [facility] [id number] [facility] 2022-10-04 00:00:00 2022-10-04 00:00:00 Orders Only Doctor Unassigned, Tat Momoli 1.2.840.1 77753.1.1 3.104.2.7 .3.491235 .8 [id number] [facility] 2022-10-04 00:00:00 2022-10-04 00:00:00 Travel 1.2.840.1 75026.1.1 3.104.2.7 .3.881989 .8 1.2.840.114 350.1.13.10 4.2.7.3.698 084.8 [id number] [facility] 2022-10-02 00:00:00 2022-10-02 00:00:00 Travel 1.2.840.1 27186.1.1 3.104.2.7 .3.589009 .8 1.2.840.114 350.1.13.10 4.2.7.3.698 084.8 [id number] [facility] 2022-09-06 08:45:00 2022-09-06 08:45:00 Outpatient SARA DELGADILLO KIMBERLY [facility] [id number] [facility] 2022-09-06 00:00:00 2022-09-06 00:00:00 Travel 1.2.840.1 40561.1.1 3.104.2.7 .3.983700 .8 1.2.840.114 350.1.13.10 4.2.7.3.698 084.8 [id number] [facility] 2022-07-26 11:00:00 2022-07-26 11:15:00 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 Pathology Pcp-Lab 1.2.840.1 53348.1.1 3.104.2.7 .3.472933 .8 [id number] [facility] 2022-07-26 08:45:00 2022-07-26 09:37:46 Outpatient SARA DELGADILLO KIMBERLY [facility] [id number] [facility] 2022-07-26 00:00:00 2022-07-26 00:00:00 Orders Only Doctor Unassigned, Tat Momoli 1.2.840.1 00636.1.1 3.104.2.7 .3.406043 .8 [id number] [facility] 2022-07-26 00:00:00 2022-07-26 00:00:00 Travel 1.2.840.1 37493.1.1 3.104.2.7 .3.908118 .8 1.2.840.114 350.1.13.10 4.2.7.3.698 084.8 [id number] [facility] 2022-07-24 13:24:12 2022-07-24 13:24:12 Outpatient [facility] [id number] Robert Arnol Viraj 2022-06-27 13:49:18 2022-06-27 13:49:18 Outpatient [facility] [id number] Robert Arnol Viraj 2022-06-21 08:52:50 2022-06-21 08:52:50 Outpatient [facility] [id number] Robert Arnol Viraj 2022-06-15 15:23:34 2022-06-15 15:23:34 Outpatient [facility] [id number] Robert Arnol Viraj 2022-05-31 08:45:00 2022-05-31 08:45:00 Outpatient SARA DELGADILLO KIMBERLY [facility] [id number] [facility] 2022-05-30 11:55:27 2022-05-30 11:55:27 Outpatient SFA [facility] [id number] Robert Arnol Viraj 2022-05-23 11:17:29 2022-05-23 11:17:29 Outpatient S[facility] [id number] Robert Arnol Viraj 2022-05-12 08:06:11 2022-05-12 08:06:11 Outpatient SFA [facility] [id number] Robert Arnol Cali 2022-05-11 13:45:44 2022-05-11 13:45:44 Outpatient [facility] [id number] Robert Cali 2022-04-08 00:00:00 2022-04-08 00:00:00 Orders Only Doctor Unassigned, Tat Momoli 1.2.840.1 39646.1.1 3.104.2.7 .3.959305 .8 [id number] [facility] 2022-02-21 00:00:00 2022-02-21 00:00:00 Orders Only Doctor Unassigned, Tat Momoli 1.2.840.1 37251.1.1 3.104.2.7 .3.790524 .8 [id number] [facility] 2022-02-15 13:30:00 2022-02-15 13:45:00 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 Pathology Pcp-Lab 1.2.840.1 25445.1.1 3.104.2.7 .3.554875 .8 [id number] [facility] 2022-02-15 08:45:00 2022-02-15 10:52:26 Outpatient DEXTER MIRELES [facility] [id number] [facility] 2022-02-15 00:00:00 2022-02-15 00:00:00 Travel 1.2.840.1 85540.1.1 3.104.2.7 .3.571135 .8 1.2.840.114 350.1.13.10 4.2.7.3.698 084.8 [id number] [facility] 2022-01-11 11:00:00 2022-01-11 12:39:46 Outpatient SARA DELGADILLO KIMBERLY [facility] [id number] [facility] 2022-01-11 00:00:00 2022-01-11 00:00:00 Orders Only Doctor Unassigned, Tat Momoli 1.2.840.1 12031.1.1 3.104.2.7 .3.704848 .8 [id number] [facility] 2022-01-11 00:00:00 2022-01-11 00:00:00 Travel 1.2.840.1 10319.1.1 3.104.2.7 .3.512689 .8 1.2.840.114 350.1.13.10 4.2.7.3.698 084.8 [id number] [facility] 2021-11-24 09:30:00 2021-11-24 09:30:[address] [facility] [id number] [facility] 2021-11-16 11:00:00 2021-11-16 11:00:00 Outpatient R SARA HESTER KIMBERLY [facility] [id number] [facility] 2021-10-26 08:00:00 2021-10-26 08:00:00 Outpatient R DEXTER DIAS [facility] [id number] [facility] 2021-10-20 10:00:00 2021-10-20 10:00:00 Outpatient R IGOR SAAVEDRA [facility] [id number] [facility] 2021-10-03 14:30:00 2021-10-03 14:30:00 Outpatient R DAVIDSON SUTHERLAND [facility] [id number] [facility] 2021-09-21 09:30:00 2021-09-21 09:30:00 [facility] [id number] 2021-08-24 09:30:00 2021-08-24 10:41:34 Outpatient R LARISSA [facility] [id number] [facility] 2021-08-24 00:00:00 2021-08-24 00:00:00 Travel 1.2.840.1 80159.1.1 3.104.2.7 .3.796737 .8 1.2.840.114 350.1.13.10 4.2.7.3.698 084.8 [id number] [facility] 2021-07-25 09:00:00 2021-07-25 09:00:00 Outpatient R DEXTER DIAS [facility] [id number] [facility] 2021-06-22 11:15:00 2021-06-22 12:18:05 Outpatient [facility] [id number] [facility] 2021-06-22 11:15:00 2021-06-22 11:15:00 Outpatient R KACIESUKHJINDER [facility] [id number] [facility] 2021-06-22 00:00:00 2021-06-22 00:00:00 Travel 1.2.840.1 55492.1.1 3.104.2.7 .3.258968 .8 1.2.840.114 350.1.13.10 4.2.7.3.698 084.8 [id number] [facility] 2021-06-20 11:15:00 2021-06-20 11:15:00 Outpatient R DEXTER DIAS [facility] [id number] [facility] 2021-06-20 11:15:00 2021-06-20 11:15:00 Outpatient R LARISSA [facility] [id number] [facility] 2021-06-08 09:20:00 2021-06-08 09:20:00 Outpatient R HILARY MOORE STRAHIL [facility] [id number] [facility] 2021-06-08 00:00:00 2021-06-08 00:00:00 Patient Secure Igor William Rai [facility] 1.2.840.114 350.1.13.10 4.2.7.2.686 [id number] [facility] 2021-06-07 09:13:00 2021-06-07 10:50:00 Emergency X GIGI MONROY [facility] ERT [id number] [facility] 2021-06-07 09:13:00 2021-06-07 10:50:00 Emergency Gigi Monroy [facility] 1.2.840.114 350.1.13.10 4.2.7.2.686 [id number] [facility] 2021-06-07 09:13:00 2021-06-07 10:50:00 Emergency Gigi Monroy 1.2.840.1 91357.1.1 3.104.2.7 .3.920685 .8 [id number] [facility] 2021-06-07 00:00:00 2021-06-07 00:00:00 Outpatient IGOR Castaneda RAI [facility] [id number] [facility] 2021-06-07 00:00:00 2021-06-07 00:00:00 Orders Only Doctor Unassigned, Tat Momoli [facility] 1.2.840.114 350.1.13.10 4.2.7.2.686 [id number] [facility] 2021-06-07 00:00:00 2021-06-07 00:00:00 Travel 1.2.840.1 97870.1.1 3.104.2.7 .3.262835 .8 1.2.840.114 350.1.13.10 4.2.7.3.698 084.8 [id number] [facility] 2021-06-07 00:00:00 2021-06-07 00:00:00 Orders Only Doctor Unassigned, Tat Momoli 1.2.840.1 65282.1.1 3.104.2.7 .3.929867 .8 [id number] [facility] 2021-06-03 00:00:00 2021-06-03 00:00:00 Travel 1.2.840.1 28608.1.1 3.104.2.7 .3.781135 .8 1.2.840.114 350.1.13.10 4.2.7.3.698 084.8 [id number] [facility] 2021-05-27 00:00:00 2021-05-27 00:00:00 Outpatient IGOR Castaneda RAI [facility] [id number] [facility] 2021-05-27 00:00:00 2021-05-27 00:00:00 Outpatient R ELLE SAAVEDRAHANT [facility] [id number] [facility] 2021-05-25 00:00:00 2021-05-25 00:00:00 Patient Secure Msg Doctor Unassigned, Tat Momoli [facility] 1.2.840.114 350.1.13.10 4.2.7.2.686 [id number] [facility] 2021-05-25 00:00:00 2021-05-25 00:00:00 Patient Secure Msg Doctor Unassigned, Tat Momoli 1.2.840.1 74874.1.1 3.104.2.7 .3.687837 .8 [id number] [facility] 2021-05-20 00:00:00 2021-05-20 00:00:00 Telephone Zane Martinez 1.2.840.1 15632.1.1 3.104.2.7 .3.304394 .8 [id number] [facility] 2021-05-20 00:00:00 2021-05-20 00:00:00 Telephone Zane Martinez 1.2.840.1 67411.1.1 3.104.2.7 .3.764909 .8 [id number] [facility] 2021-05-18 00:00:00 2021-05-18 00:00:00 Travel 1.2.840.1 17917.1.1 3.104.2.7 .3.719346 .8 1.2.840.114 350.1.13.10 4.2.7.3.698 084.8 [id number] [facility] 2021-05-18 00:00:00 2021-05-18 00:00:00 Travel 1.2.840.1 97199.1.1 3.104.2.7 .3.340139 .8 1.2.840.114 350.1.13.10 4.2.7.3.698 084.8 [id number] [facility] 2021-05-17 13:15:00 2021-05-17 13:30:00 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 Igor Saavedra Pcp-Lab 1.2.840.1 16584.1.1 3.104.2.7 .3.239409 .8 [id number] [facility] 2021-05-17 09:00:00 2021-05-17 10:25:05 Outpatient R IGOR SAAVEDRA [facility] [id number] [facility] 2021-05-17 09:00:00 2021-05-17 10:25:05 Office Visit Igor Saavedra Neeharika 1.2.840.1 72079.1.1 3.104.2.7 .3.900010 .8 [id number] [facility] 2021-05-17 09:00:00 2021-05-17 10:25:05 Outpatient Tonya GUTIERREZELLE LuaIGOR [facility] [id number] [facility] 2021-05-17 09:30:00 2021-05-17 09:30:00 Outpatient R QUENTIN IGOR [facility] [id number] [facility] 2021-05-17 00:00:00 2021-05-17 00:00:00 Travel 1.2.840.1 94229.1.1 3.104.2.7 .3.502376 .8 1.2.840.114 350.1.13.10 4.2.7.3.698 084.8 [id number] [facility] 2021-05-17 00:00:00 2021-05-17 00:00:00 Travel 1.2.840.1 22754.1.1 3.104.2.7 .3.199505 .8 1.2.840.114 350.1.13.10 4.2.7.3.698 084.8 [id number] [facility] 2021-04-26 09:00:00 2021-04-26 09:00:00 Outpatient R [facility] [id number] [facility] 2021-04-26 09:00:00 2021-04-26 09:00:00 Outpatient AVELINO NAGEL [facility] [id number] [facility] 2021-04-20 08:45:00 2021-04-20 08:45:00 Outpatient SARA DELGADILLO KIMBERLY [facility] [id number] [facility] 2021-04-11 08:40:00 2021-04-11 08:40:00 Outpatient SALLY FIGUEROA HOWARD [facility] [id number] [facility] 2021-04-11 08:40:00 2021-04-11 08:40:00 Outpatient SALLY FIGUEROA HOWARD [facility] [id number] [facility] 2021-03-21 08:00:00 2021-03-21 08:00:00 Outpatient SALLY FIGUEROA HOWARD [facility] [id number] [facility] 2021-03-17 00:00:00 2021-03-17 00:00:00 Patient Secure Msg Doctor Unassigned, Tat Momoli [facility] 1.2.840.114 350.1.13.10 4.2.7.2.686 [id number] [facility] 2021-03-17 00:00:00 2021-03-17 00:00:00 Patient Secure Msg Doctor Unassigned, Tat Momoli 1.840.1 72943.1.1 3.104.2.7 .3.913837 .8 [id number] [facility] 2021-03-17 00:00:00 2021-03-17 00:00:00 Patient Secure Msg Doctor Unassigned, Tat Momoli 1.2.840.1 32488.1.1 3.104.2.7 .3.401760 .8 [id number] [facility] 2021-03-16 13:15:00 2021-03-16 13:30:00 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 Lockwood Pcp-Lab 1.2.840.1 67699.1.1 3.104.2.7 .3.581589 .8 [id number] [facility] 2021-03-16 13:15:00 2021-03-16 13:30:00 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 Lockwood Pcp-Lab 1.2.840.1 90978.1.1 3.104.2.7 .3.472773 .8 [id number] [facility] 2021-03-16 13:15:00 2021-03-16 13:15:00 Outpatient SALBADOR CRONIN [facility] [id number] [facility] 2021-03-16 12:00:00 2021-03-16 12:09:51 Outpatient SARA DELGADILLO KIMBERLY [facility] [id number] [facility] 2021-03-16 12:00:00 2021-03-16 12:09:51 Outpatient SUKHJINDER DELGADILLODAVID SUESUKHJINDER MCNEILBERLY [facility] [id number] [facility] 2021-03-16 12:00:00 2021-03-16 12:00:00 Outpatient SUKHJINDER DELGADILLODAVID SUESARA MCNEIL [facility] [id number] [facility] 2021-03-16 00:00:00 2021-03-16 00:00:00 Travel 1.2.840.1 78812.1.1 3.104.2.7 .3.456144 .8 1.2.840.114 350.1.13.10 4.2.7.3.698 084.8 [id number] [facility] 2021-03-16 00:00:00 2021-03-16 00:00:00 Travel 1.2.840.1 24022.1.1 3.104.2.7 .3.565469 .8 1.2.840.114 350.1.13.10 4.2.7.3.698 084.8 [id number] [facility] 2021-03-11 09:44:00 2021-03-11 13:06:00 Emergency X HALIMA CONNOR [facility] ERT [id number] [facility] 2021-03-11 09:44:00 2021-03-11 13:06:00 Emergency Halima Connor 1.2.840.1 34027.1.1 3.104.2.7 .3.146360 .8 [id number] [facility] 2021-03-11 09:44:00 2021-03-11 13:06:[address] [facility] ERT [id number] [facility] 2021-03-11 09:44:00 2021-03-11 13:06:00 Emergency Halima Connor J 1.2.840.1 91249.1.1 3.104.2.7 .3.730838 .8 [id number] [facility] 2021-03-11 09:44:00 2021-03-11 13:06:00 Emergency X RE CON[facility]RA [facility] ERT [id number] [facility] 2021-03-11 09:44:00 2021-03-11 09:44:00 Emergency X HALIMA CONNOR [facility] ERT [id number] [facility] 2021-03-11 00:00:00 2021-03-11 00:00:00 Travel 1.2.840.1 26660.1.1 3.104.2.7 .3.392032 .8 1.2.840.114 350.1.13.10 4.2.7.3.698 084.8 [id number] [facility] 2021-03-11 00:00:00 2021-03-11 00:00:00 Travel 1.2.840.1 91969.1.1 3.104.2.7 .3.889565 .8 1.2.840.114 350.1.13.10 4.2.7.3.698 084.8 [id number] [facility] 2021-03-08 15:00:00 2021-03-08 15:15:00 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 [facility] 1.2.840.1 09212.1.1 3.104.2.7 .3.031892 .8 [id number] [facility] 2021-03-08 15:00:00 2021-03-08 15:15:00 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 [facility] 1.2.840.1 34359.1.1 3.104.2.7 .3.766264 .8 [id number] [facility] 2021-03-08 15:00:00 2021-03-08 15:00:00 Outpatient R SALBADOR LOCKWOOD [facility] [id number] [facility] 2021-01-31 10:15:00 2021-01-31 10:55:06 [id number] 2020-12-29 08:00:00 2020-12-29 08:41:00 Outpatient R SELF [facility] [id number] [facility] 2020-12-29 08:00:00 2020-12-29 08:41:00 Outpatient R SELF [facility] [id number] [facility] 2020-12-29 00:00:00 2020-12-29 00:00:00 Travel 1.2.840.1 88708.1.1 3.104.2.7 .3.905554 .8 1.2.840.114 350.1.13.10 4.2.7.3.698 084.8 [id number] [facility] 2020-12-29 00:00:00 2020-12-29 00:00:00 Travel 1.2.840.1 29858.1.1 3.104.2.7 .3.016523 .8 1.2.840.114 350.1.13.10 4.2.7.3.698 084.8 [id number] [facility] 2020-12-22 09:30:00 2020-12-22 09:30:00 Outpatient R SELF [facility] [id number] [facility] 2020-12-22 09:30:00 2020-12-22 09:30:00 Outpatient R SELF [facility] [id number] [facility] 2020-11-26 00:00:00 2020-11-26 00:00:00 Orders Only Doctor Unassigned, Tat Momoli [facility] 1.2.840.114 350.1.13.10 4.2.7.2.686 [id number] [facility] 2020-11-10 09:30:00 2020-11-10 09:30:00 Outpatient R ROBERT NOWAK [facility] [id number] [facility] 2020-11-10 00:00:00 2020-11-10 00:00:00 Orders Only Doctor Unassigned, Tat Momoli 1.2.840.1 04449.1.1 3.104.2.7 .3.846556 .8 [id number] [facility] 2020-11-10 00:00:00 2020-11-10 00:00:00 Travel 1.2.840.1 02892.1.1 3.104.2.7 .3.610922 .8 1.2.840.114 350.1.13.10 4.2.7.3.698 084.8 [id number] [facility] 2020-10-11 08:00:00 2020-10-11 08:00:00 Outpatient R DEXTER DIAS [facility] [id number] [facility] 2020-10-11 00:00:00 2020-10-11 00:00:00 Travel 1.2.840.1 25777.1.1 3.104.2.7 .3.222771 .8 1.2.840.114 350.1.13.10 4.2.7.3.698 084.8 [id number] [facility] 2020-09-13 08:00:00 2020-09-13 08:00:00 Outpatient R DEXTER DIAS [facility] [id number] [facility] 2020-09-13 00:00:00 2020-09-13 00:00:00 Travel 1.2.840.1 19583.1.1 3.104.2.7 .3.040417 .8 1.2.840.114 350.1.13.10 4.2.7.3.698 084.8 [id number] [facility] 2020-09-02 16:12:00 2020-09-02 20:21:00 Emergency Patti Roes [facility] 1.2.840.114 350.1.13.10 4.2.7.2.686 [id number] 2020-09-02 16:12:00 2020-09-02 20:21:00 Emergency Patti Rose 1.2.840.1 03001.1.1 3.104.2.7 .3.332776 .8 [id number] [facility] 2020-09-02 00:00:00 2020-09-02 00:00:00 Orders Only Doctor Unassigned, Tat Momoli [facility] 1.2.840.114 350.1.13.10 4.2.7.2.686 [id number] 2020-09-02 00:00:00 2020-09-02 00:00:00 Travel 1.2.840.1 57146.1.1 3.104.2.7 .3.493481 .8 1.2.840.114 350.1.13.10 4.2.7.3.698 084.8 [id number] [facility] 2020-09-02 00:00:00 2020-09-02 00:00:00 Orders Only Doctor Unassigned, Tat Momoli 1.2.840.1 52408.1.1 3.104.2.7 .3.496444 .8 [id number] [facility] 2020-08-25 09:15:00 2020-08-25 09:15:00 Outpatient R [facility] [id number] [facility] 2020-08-09 08:45:00 2020-08-09 08:45:00 Outpatient R DEXTER DIAS [facility] [id number] [facility] 2020-06-28 13:45:00 2020-06-28 13:45:00 Outpatient R SALBADOR LOCKWOOD [facility] [id number] [facility] 2020-06-21 15:15:00 2020-06-21 15:15:00 Outpatient R DEXTER DIAS [facility] [id number] [facility] 2020-06-07 08:45:00 2020-06-07 08:45:00 Outpatient R SELFDEXTER [facility] [id number] [facility] 2020-05-25 08:30:00 2020-05-25 08:30:00 Outpatient R CRISTO MARTINEZ [facility] [id number] [facility] 2020-03-15 13:00:00 2020-03-15 13:00:00 Outpatient R SALBADOR LOCKWOOD [facility] [id number] [facility] 2020-03-08 13:00:00 2020-03-08 13:00:00 Outpatient R DEXTER DIAS [facility] [id number] [facility] 2020-02-16 11:00:00 2020-02-16 11:00:00 [facility] [id number] [facility] 2020-01-27 11:45:00 2020-01-27 11:45:00 Outpatient R DEXTER DIAS [facility] [id number] [facility] 2020-01-19 08:00:00 2020-01-19 08:00:00 Outpatient R DEXTER DIAS [facility] [id number] [facility] 2019-12-22 08:45:00 2019-12-22 08:45:00 [facility] [id number] [facility] 2019-12-05 10:45:00 2019-12-05 10:45:00 Outpatient R JEWEL MORAES [facility] [id number] [facility] 2019-10-23 09:15:00 2019-10-23 09:15:00 Outpatient R KATH EDLGADO [facility] [id number] [facility] 2019-10-15 11:30:00 2019-10-15 11:30:00 Outpatient Tonya DREWSHEROBERT SAMANIEGO [facility] [id number] [facility] 2019-10-01 14:30:00 2019-10-01 14:30:00 Outpatient ROBERT MURILLO [facility] [id number] [facility] 2019-09-01 08:45:00 2019-09-01 08:45:00 Outpatient Tonya DIASDEXTER [facility] [id number] [facility] 2019-08-06 13:00:00 2019-08-06 13:00:00 Outpatient ANGELA HERRERA [facility] [id number] [facility] Results Test Description Test Time Test Comments Results Result Co mments Source [facility]2024-01-04 19:59:01* Test Item Value Reference Range Interpretation Comme nts FERRITIN (test code = 1179543191) 22.4 ng/mL 6.0-137.0 ZAINAB (test code = ZAINAB) Biotin has been reported to cause a negative bias, interpret results relative to patient's use of biotin. Lab Interpretation (test code = 55117-3) Normal [facility] Vchtj0589-75-71 19:59:01* Test Item Value Reference Range Interpretation Comme nts FERRITIN (test code = 0882645685) 22.4 ng/mL 6.0-137.0 ZAINAB (test code = ZAINAB) Biotin has been reported to cause a negative bias, interpret results relative to patient's use of biotin. Lab Interpretation (test code = 81429-0) Normal [facility] Ajagp4713-58-76 19:59:01* Test Item Value Reference Range Interpretation Comme nts FERRITIN (test code = 4958487255) 22.4 ng/mL 6.0-137.0 ZAINAB (test code = ZAINAB) Biotin has been reported to cause a negative bias, interpret results relative to patient's use of biotin. Lab Interpretation (test code = 87124-1) Normal [facility] Xekkx6935-18-53 19:59:01* Test Item Value Reference Range Interpretation Comme nts FERRITIN (test code = 4063037503) 22.4 ng/mL 6.0-137.0 ZAINAB (test code = ZAINAB) Biotin has been reported to cause a negative bias, interpret results relative to patient's use of biotin. Lab Interpretation (test code = 98185-3) [facility] Afigr6557-73-19 19:59:01* Test Item Value Reference Range Interpretation Comme nts FERRITIN (test code = 2549940486) 22.4 ng/mL 6.0-137.0 ZAINAB (test code = ZAINAB) Biotin has been reported to cause a negative bias, interpret results relative to patient's use of biotin. Lab Interpretation (test code = 42978-9) Normal [facility] Jdevc0361-48-24 19:30:52* Test Item Value Reference Range Interpretation Comme nts IRON (test code = 0120923333) 54 ug/dL 50-160 TIBC (test code = 0153873149) 434 ug/dL 250-410 H % FE SAT (test code = 0515872187) 12 % 20-50 L Lab Interpretation (test cod e = 11000-0) Abnormal [facility] Etbov8228-28-32 19:30:52* Test Item Value Reference Range Interpretation Comme nts IRON (test code = 5944407477) 54 ug/dL 50-160 TIBC (test code = 2263699986) 434 ug/dL 250-410 H % FE SAT (test code = 6474879732) 12 % 20-50 L Lab Interpretation (test cod e = 17377-9) Abnormal [facility] Lkrpc5719-11-91 19:30:52* Test Item Value Reference Range Interpretation Comme nts IRON (test code = 6110340076) 54 ug/dL 50-160 TIBC (test code = 0939196374) 434 ug/dL 250-410 H % FE SAT (test code = 0288052305) 12 % 20-50 L Lab Interpretation (test cod e = 85370-3) Abnormal [facility] Mcfni3420-58-28 19:30:52* Test Item Value Reference Range Interpretation Comme nts IRON (test code = 2720812972) 54 ug/dL 50-160 TIBC (test code = 0549332445) 434 ug/dL 250-410 H % FE SAT (test code = 0123404936) 12 % 20-50 L Lab Interpretation (test cod e = 69367-6) Abnormal [facility] Uyvqp4522-59-52 19:30:52* Test Item Value Reference Range Interpretation Comme nts IRON (test code = 3806053853) 54 ug/dL 50-160 TIBC (test code = 3483590674) 434 ug/dL 250-410 H % FE SAT (test code = 4718892002) 12 % 20-50 L Lab Interpretation (test cod e = 52168-1) Abnormal [facility] Gpruy9465-67-67 19:30:52* Test Item Value Reference Range Interpretation Comme nts IRON (test code = 2781168700) 54 ug/dL 50-160 TIBC (test code = 9905867805) 434 ug/dL 250-410 H % FE SAT (test code = 5683579621) 12 % 20-50 L Lab Interpretation (test cod e = 86896-6) Abnormal [facility]2023-12-11 20:01:05* Test Item Value Reference Range Interpretation Comme nts [place] (test code = 3295174270) 0.5 mmol/L 0.6-1.2 L ZAINAB (test code = ZAINAB) Toxic Range: ? Greater than 1.2 mmol/L Lab Interpretation (test code = 20198-4) Abnormal [facility]2023-12-11 20:01:05* Test Item Value Reference Range Interpretation Comme nts [place] (test code = 6537740354) 0.5 mmol/L 0.6-1.2 L ZAINAB (test code = ZAINAB) Toxic Range: ? Greater than 1.2 mmol/L Lab Interpretation (test code = 59568-9) Abnormal [facility]2023-12-11 20:01:05* Test Item Value Reference Range Interpretation Comme nts [place] (test code = 9057301391) 0.5 mmol/L 0.6-1.2 L ZAINAB (test code = ZAINAB) Toxic Range: ? Greater than 1.2 mmol/L Lab Interpretation (test code = 20522-4) [facility] [id number] 19:23:05* Test Item Value Reference Range Interpretation Comme nts Case Report (test code = 0029156004) Surgical Pathology ?Case: [id number] ? Authorizing Provider: ?Dominic Keita MD ? [...] HPylori ? Final Diagnosis (test code = 0717312350) q6pibQSaAJEtv5qdDSPktW FuZzEwMzNcZnRuYmpcdWMx LYzwlfNcHMtiqFdyJOW1UJ WbIT6svDdzpFh0uZzqADCc apJ4uGSeEUzzv9leKXS3k6 ytvwzrUYTuPQfbDx4whVRy eUlvKlSiDZDhBBx1wD52FR KxwD5hfKOfZEo5WCAzwUGr zpUfQcCxWGVxwECsgPF9UL SlQS9hqpdwVAouDAbsKUQl jgV1GUPxhYCbH3SoSTDcCX 1ybbnmYSD1LKqrZIUyWYT4 TdBbFMYgq9Czklp3FxVcaW FyZFxwbGFpblxmczIwXHBh vyZMMvDAUY3SSAISUYLRL6 fFKUIOJN7JJIFKIsehfDMs IXPxTDJkCWPVYL9LWQLwT9 eAZdIrRO2NXLVkLXKvySAz TIBorrMGBrAHAT1HDY6TEX wgQklPUFNZOlxwYXIgICAg HPAuYPtBN2DDQGAzLVKLQ2 QADFwMBQfzSe7sTHYUJJ0I W4wJN0TBSHYZCL7TDZfwMO WsYCHjICUlCL9PQDpvFGRL TZ9MCERXXDSHHYdXUXGSPE FMCOaCRFJQI9HVTJaDSOOj nxxwJQVwQs4dU9XFEXSQFN wgQklPUFNZOlxwYXIgICAg HFDySOZNU9GWNbILOT8YN0 2RLLTOMBACMZ8YNPYQHBqN YA3BGGXSMEJXKCQZO0KjeI FyICAgICAgLSBOTyBFVklE BP3OBBDTKaEYSWiPCINdLD lTRUFTRVxwYXIgICAgICAt MD7UYBbpOAAPFU8XURHTXo dBTklTTVMgSURFTlRJRklF BANKNELECC8ZPp7MSPOASy xwYXJccGFyfXtccnRmMVxz z6PuE2ThBsKtGUumhwSqWL WsRllegqjcYRGbSUL8ldMg BGIbAFevMUArTConTy5jnI OlgRptYwSwHTCoy8wkwdMO JMgxJnCdO885ECCaXAvij3 wyj2XhYJNawHZfr8E5RSPF qspslVb8c6jlRsBfDqS6iX FkSKdmO7zhrqPrkUYdL2Ph kWQjlMa5vJmaC56vd7X1Xa cnI6wpZUIgGJWbQ1YsFG4q QYOpXeq5EJQ2BRA0BAEvTQ HqE1ToRG9uLIExdOPzOHr9 m6zteEnuRXHjYCK9w9vzVR kgupU5FQ6arc4fzXt2s5st czEgRGVmYXVsdCBQYXJhZ3 DhwVlbKh1dyAv2wRqgFfit XPQ8Frk9ST5wzy39yfa2jL soKCAkjxxsHfD6AJpmIEVx qltoJZd6XMijVWKwdYC6HM OnwXThJ5OlQVTrJA3geqq4 BHK5OHyaPJQtZdZ0VNCjqV AwHZOnwEeqDNkdl447JEP3 CoLsFZ7bM6Umc5C9wS9jwR RtTSFccDZyBqRlTJFvut7k vLJaJFjax9RyQER9vcV8iL EaqLShYJUqCO27Wxvbg4Uu XuacXFL7RGQccaZsb4Xqi5 kpBaNudrZsP6rmJ3FkZVBp UQJtPPDvTlDyrrOnf9Sgl7 CizUSygLf0u7zvTIQoJKIc gYbew1bfUWZ2BUBwQ9D9mJ Zzn6vfJHypMLDyrFE2gnG1 ZXErdTFqL5EgbU9lIGTmDE 1rzrk6v4zhGJZ2KYtbCIBn ItB3lzX4EAOwnMRgMHUfvR tkITuxn346MBL3SrRkENHb f1HpQ7WxxGcqI70ciGiwO6 8zBANyvErddO3xfWuhjO1w ZjBcZnMyNFxxbFxwbGFpbl xmMVxmczIwXGxhbmcxMDMz ZJytG9roEqRaSWOhbCodXG kxz7AfXWGcNPPmGfdtnvWy XHBhciBJIGhhdmUgcGVyc2 9uYWxseSByZXZpZXdlZCBh hFwei7VxF4bhUQ7mB8NvaK UdyfPwhkIqYYoxYFGpq1t3 aLJrkBowy5IdlPQiXU23dr XoWKDaTQW1YCWoc7isHR42 nbqbZxMenW46qwZkixNjGA Kan6vmO1wpmCCjk2Bwj8Cp xjIaXHynf4MvQR9xcWSaqh idfGG4EXMxbBLegqCxbnE4 qRhrWEBecW2mhD9kbTrigS 9rTxMzVzCsHSwlER4vEPBk C2glvETfHIKbMCFlO2uiYe WfmV9nuVzbEhgtvtV8WQNr cn19 Clinical Information (test code = 3328954013) Shivani Schuler is a 47 year old female with IDA1. Gastric polyp x 6 r/o adenoma2.Duodenal Bx, r/o Celiac disease 3. Gastric Bx r/o HPylori Gross Description (test code = 0718597889) g3vgiPSeJQTaqPKUYES9TC WgWB7hhOxgfWe8sFkoWUFj kaT6yOZiWUmnt0usIAY1t5 klmiRQPfzyPVAeKY1nQMlk ABLyRW9aXjRrIOPzHjCdSX BhcGVydzEyMjQwXHBhcGVy tCO4VDNrZU3klfuzPUwmAU cdBWOwosF6UFAerHIjC3Nl GQYgVI4pknsbKPN0HBHFTe lxQn2vkIUngZroUyGyLfVl YXJzZXQwXGZuaWwgQXJpYW w5qA6VCxvvLFV0XHOGNdxj SprzlObld4ChrADnFDOoTF xcaWQgNTEwMDAgXFxkYiBP HfCqXsJ6Vyy5YOL4OzF8VV f3UHWQPXNcBntlCFF3HmU7 KOb7FLTwGB3zEAwsqSLkEH xzGsinRSoyV836JFglBTVf V6AjW1OoUZlzNiXjFClsEQ RrODHxAKvfBLEbX1OXHRIo WLX4OiEhPZHxJNf0RMsfL2 FCCOMhDDZbXgE9KEYhKzH9 MSk9KDSPWa2sEAsaVzUhKM a2FXG9MNu3GwFvHCUmUkVf NXEaPDLcXRbpyINrDV5iuE dhNMHxZM4NSAGjVSdqWNLl WnFdS9CZP7wVCZ2qLRermD JjaFxmczIyXHBhciANClxw JDXfZU0LPWQhMGjcOPd4if XwEZTfYwGlWWLcQ02ez7ES s4KqTJ6DFIn3fdTjtfzjsA 9aIKTdvvOhFIcJyHSlqB8r dsAYPXrvOMJaA6TtuyTfMT dgSOVbmx0rkDuxOWcsUoWp bGVkIHdpdGggdGhlIHBhdG fhgbOsW5A4arGtRM2lLECQ WPAbsS8cMRIcBYFox0WbpQ FrhIpdP5LibYUeFxIbn0t5 rCT9WOGhspEbONShhABuPL Xupi8lAIsfZpXmB3B1KZHg KIMsy75ctFW9oyEoQhGrdW n8fCGpTJH9AG8bhYmwgaOo m6a7rE7hSUNqq6V4IUYxt7 J3RTQjzqVoeESlaOLeXHYy HT5betAuFQ14BNCnALxsYS soQJN9ABR1ZURriTEnb6va aswqMo3pVCclNL0uCQwpHP 91HRWrNBdpBEOfQ0FoY0W8 ENozLRGrIMPpzWAchG6hje VvclLmhGz8BLYkBGM9sQGp nNwsQHVkUzfbvFW9CKPnNg BboqQug9GixEa9mXGaEIua XPUaeD4onI4tHNKkERGlth WVIupuVRMhWMsps2FhCQff cGljWHNhMzAgDQpcZXBpY0 2lw0KUk5Xsa6ofsRvlt3Bj mCUfMJ0wcMPvTI4Xr2scZG KseWReTBA2CNjyl0avKVvm NTJ3QXLcNsMwMJKsGW3SHk MmOKvbRWk0LHvkRLy6WAm1 RC3SVkKdHBEsHpb2HkS8Mx EaLZi1KTesMY2ELUK6PSSj HOPgJUdjZSM5FKMsJPz1KH IgXFxzcyAzIFxcZmwgXFxu B25sdSWqACljEgGkLMrcmP tdFNFwKZT8HH4ZNXVpVkIm U4TDS9tQZE9wSjkcrvFoWA FeimRIMvvjIMXcTY1EURUt HKzzRLi2dhQkNKBxUeWqSV TuO93tw0RZc4OtFL4WSJt3 qrCgzfkmkC6kHUTyriSea9 IzMFxlcGljWHNiMzAgDQpT nNPkxY7pzfHSQTstJSEiT8 MlvfMkJDpqFMOsjz6amEok IGxhYmVsbGVkIHdpdGggdG qaKKUqtXgvsgAkF8F3rqFi KX1dFYIUGEOzmW0yHORfLP EnJXHnZVLtxZ6bFKC4c8Ey teDtQKXYFEOaiIehCZ00dB BjZWxpYWMgZGlzZWFzZSBh tbKpxsVgq88uypWws3VuJW 6uuShuFUzURXviYqWcVW1n MJRyjsOlo9TqNT5eAIJnjU NbCCMvjqiocTOsZUl9bONx IGUzJhTscFwfg9VsVSLeEU dlFI13zrCzFO5bNKmkXK1l HHlpUN1xZDFfUCMqYUAmOj WksQYkVqXzkZGeDbMuK13c OxMGaTQab8TfT6mjOC5yfJ BkRvyiuWRbJNElqAasw4Eu kZZjTGFtl9AesTWdAJcwDF 2kTOU2Jp2dcRDnUYUhumU4 b4SlJFzwHMThRjvtMMYcSX avt6QvVKVmyBZTl2IoGY4J XHBhciANClxzYTMwXGVwaW FGr6NqVDDCRzabuIyfLaNp rGFaZxR8LVPzcYWnOQZ8WS 9bwAapJANdBPg5HNqpJILt O0GyO5VzHKoaTgByHDcmEY EpHUFpIWjcTHCrF4KAZGOe EZA3JmWhXKEnSGc1EZwoJ9 PQFCGyHKCuNtK7IQO3EdX1 DFx5RGWXUl0hKHvhHbNgZO XhPsJ4NBv1EkVdRCNdEoId SUHlQEUjVNqtdYRpVZ8ceE wlNSSpBZBdWPJ8POEkeECC f9IxECQaZEufQsLuZEARYG UVKA3PBjFYXGZdHwQudTGm UP3QTAVpgoFtXOighMrqdP 5gwWOoA2ksTsYyTisxnPfr TmVzdERvYzEgDQpcbHRycG FyXGxpbjBccmluMFxzYjMw NQFjoPUGd4YtBAPBCdPbAB NpbWVuIEMgaXMgcmVjZWl2 IDQjaD6qHt8bkWYvmP3ckX GoQOwkWIMek8e8dMI3zZOk dZD9hSZrtIfuLlFpTA1ihJ UmGNOZIH59fBFvfwEdKNAb wQ6rHPSxIUXfHLZ0zaxxPT IMPQZ3hRPik0T8YBcjIUA7 oE0ryVxaFzIpY5S4EHIsEG Qnl23bvLN3ivUpEfQtBHHh mu6fsQ0nKGewjqBiqPhxdk Iwg1E0BNKrr6N0CKLbkkEu iFRauJEmMBMyFiT8ASElQm R7TZBvEDCkkPWaJXBgLZ8s VGhlIHNwZWNpbWVuIGlzIG PsrKQmrpWkUZSswn75H8kq ZIElsY0ht9llWkTmAWSpAB MxoEUewUJ3DMPmnQ2oaF41 xiHxtuIMMD0zbMMeTG3RFQ NiMFxlcGljWHNiMCANClxw NQXjMPhnc5HyMSwdsTvoLG OxWsSiBGhHuKmkHDNRQ2kg eFHjYQgqNAFOKDoWL0IQAL 3BGNMqiROXPQY4SL0vXEth VXNmV4HrF6KnxaO7c3fllP iwu9CteHGcSZ3ggLHoJP0T XHBhcmQgDQp9 Disclaimer (test code = 2178964884) b8svbSBdGJQpd7kpKFGylN FuZzEwMzNcZnRuYmpcdWMx WWejyvBeMTpzw8HkO6IcIk AwMFxhbnNpXGRlZmxhbmcx KUJgDMT4brQeSKTzVVfvJB GlMSmwYw9tnQYgxUumAsHx MATdj9uxxdRSEQolRoSrK1 92DNZvIIrwo7jox2VpSTEu jIAfd4A2FCPAqylemSp0qF jrY74jv3P5HljyZ2zbHSIf GJGxO3BiSV6aDWTcLkc0LK C2YHK4FENpZWKaO3IpOH1q CYRgaLHmIXl2v1jtnTthVE DtCRQ5u2zwEHripyMbBI0b vo4fbLc4y8mychZnOVGnNS FexGKBVRJpQ8AavRfkBs8y zIs7bKaxIpcoAEF3Siv0TL 9ttv12aqg4oMveIZLxnxmu RyK1DCrnBMAktwsaTCr3FB bhLZAibCC0XDJhsUSpH1Hb JWJlOR5olnj3LFZ8NXrjDT BrEdQ5EIKqpDVjLVPrqDag ADqhh879EQH3MnNyWI3xP6 Zie0T5kI6vrYBhOYDthAQh IcAxPJClxj6wxXNzTWrrd1 IyALF9fnT7kLYldNWjUQUk VC52Gcokc1LlIilem3HiI0 0lfFR6CLzin6xsNF7lUsZ2 piJtOYnqs1tqmH6zZbP8RP tlQZ8iTT9cNEEllR0vrogg XHBnYnJkcmhlYWRccGdicm AmMr7saKwaNME1STouK1qb cF0cBzW7EMykK3qmbO8eAD s2ESmmzPF4UCDwmD0oQJ0y jmxoa9epQEchKAigSQDhwq F0kxR1BGLmgDFbK6OacR7w UOUvRK7mtwjdt6jlXRB4QC gvPCQfSHY6NpLuZEAjv1Vj wcu1RrMut0ZmcPFgPUgvE3 8an449KOYtcvJbW7kuoIMe hyzyjJNinwfwSZodvnS0NP KthfHbr5OuVWPlXFR7INgu WEoazUQoQAKcrHcrg9ndJ9 RscGFyXHBsYWluXGYxXGZz MjBcbGFuZzEwMzNcaGljaF waBFzvBfHxEGAeOGaqE4yj XcWbY2WbGRWdSkQiuVUdI6 ggVGhpcyByZXBvcnQgbWF5 FOqbE5v6NKKvzpExaJa9zl PuGfGsSRWgELW9UAtipGWy LCLdy5DjflvdiDUxSv8rnL OlHJLbhJ5tXDAoQURzTXhi UH3mxAa3MZRNxHXvuTRcOq DJXLBjYV19qlNvVSKZchhq u4M1SDeiPSRby8HenNReF1 wju0MqYCCgq25hJQ5ay7I5 j1jgWAV9ZE2ke6LeKDVksU UtgZQgHSYjz4Fvtojia9Xa VRTipjFqq1KdSRJufsTjnU CyIWRjhpLbfm6bhgZhKMWo VBXdN7JvhnbnvWljqhOwTR Iifd0rngWbLGC7MZAMBZIh NTLgx3PeyI4usTLJSWL4lV Wsbf7yztMYpGHaRUYfgv59 TOOmHL9hC0qeONZpERQyds DppQLie8PmVGFlwOM5cBFw HC8ZFwBFy88rUSKcLEGJdc StOOBlyQloiFA6dsP6oM3n IChGREEpLlx+IFRoZSBGRE PrOK1ioxBpj1VcwsXdtXfk CDNcxRMie1OslAHsa5JddH znu5FkfYYtnJRdXC9iSOKl clxwYXIgVVRNQiBMYWJvcm R5v4DcGYPhPULdRET7jQhe iwe8XWRlyF0dKPGzZ1wrbl ggORmpSIRpe3JdqH1hzODM rOCkz1GhyMDgqEFFvETlDP 2plaNpHMxVLPeOICJ8aaJr NOSkf3EcBAcuN0vtJ14lmP usrOt3qEE0TFF5jX6xDcf+ IFxwYXJccGFyIEFwcHJvcH TlWKPprNbtrxEcY2YbiyWm cT3pyYGhpjNrAQ7cVZ2vB8 M1oQMdFHKombJzm3keAHhk dmUgYmVlbiByZXZpZXdlZC Kvy4KcCVxlZIB3QNhqhnEk bmNsdWRpbmcgSCZFLCBTcG XqlCAePSG4DWxelcNjnvRo IX1keI3brBrreO1xzHAxbN F2ycknKUYoAWFnhIshLTNv ID1ppRuehF8iZsQvQjQmSD ytNO7tCEPsZ0coiYOqSMNq ABJlP1yuYtYkhK4miEgqUO xjZjJcZnMyMFxwYXJccGFy XHBsYWluXGYxXGZzMjBcbG FuZzEwMzNcaGljaFxmMVxk EcXmZPOqBKocZ9piClUgZ3 BbHJSnLlFtoIMnQ3fgQXlc OFY9YQKdPQ8qpGVeQH21oL Sic4tdNDeoiFdppo2dT92y hRCwEPhojLuiRLLei60ag7 KoNYZvinXmyl7pSIYypwL3 dF6eSGYbwLohLHIriLZrYZ Lqr6DwDXagkYLkjmBrZTfm HXTeYULnnANmfhP3igFaxh StrgJxIMCpwDhkNGTvn9Xn WEGuZZobb8Wdsx0uzQCgUQ KuypAYtQcwpWQhtF7wA8Jd FPGwZJAwpb9uVRWrqR9wBW drj5PhvaklZVHpCRKnXVAb gmGvou7jHJJlmQOSQX8SMA haeWNih1EpoiDzO9nIFMG5 NUQwNjYwMjgxKSBleGNlcH HvJOIkam38ERRwfI8bzMve XIQnhY8faD5ulPwwkR6oDe HmZfQlJVaeYM4tVTToI3gk jWWaIZLhFKCzA2yuXoXfjA 9jaFxmMVxjZjJcZnMyMFxw YXJ9fQ== Embedded Images (test code = [id number]) [facility] [id number] 19:23:05* Test Item Value Reference Range Interpretation Comme nts Case Report (test code = [id number]) Surgical Pathology ?Case: [id number] ? Authorizing Provider: ?Dominic Keita MD ? [...] HPylori ? Final Diagnosis (test code = [id number]) [id number] FuZzEwMzNcZnRuYmpcdWMx PScuzaTrUDetqJwyZOB7VF XiJN2dpCfkjUi0jCdwKPLd ywY0sIYgSQgqu1qkEEO6y3 tuwpwyMFMmGTcxGo5ffHKl cMtqXgIkYYZhTSr1aI96VJ SvmZ8uzCVpGIz2USMowMLf ngEdOvHwKPUebLYgxVH0LU DlOM9yellaPIvpFYriMQLs paD7YUEzsBQjV9CvYDBpGQ 0ugjfgCVO4KPrqQGDzEYP8 UoReTMPwn2Orwtd7JzNvhW FyZFxwbGFpblxmczIwXHBh gqWWFtOTZB1PFTBEYRQIG6 hANPLDPW4QPURZGcydxRIn ZRNyFSNmUBSIKT8JDZLcD8 tMWcAxIP0YIATpTZAilHWz MOZnznLTAwJACP3MUX2RIP wgQklPUFNZOlxwYXIgICAg YRHjNVkOL9QWZNYiZIDTM1 ESYBfHDUzhKr3rBAJIZM6O G2sHG7GZAGWSYC9RWZepMM LnNNYsKNXxNH9ABOezWDTV AJ4FIPSNCCCGAWnYFLKBDE ZALDeOFPUGT4LHGUpLRHDa akudSURjAk3kH9AKNIBSKR wgQklPUFNZOlxwYXIgICAg FAFzSLSMC2GWRdSTDU2DM8 0ROZFIFMLYVW5IUVKJGRaR SM7SRHKZPICJIWNLS8NnmO FyICAgICAgLSBOTyBFVklE SC3WGUZUMxVCQNsROQVeQT lTRUFTRVxwYXIgICAgICAt QX1XYSstSJGULR4FZJHEYq dBTklTTVMgSURFTlRJRklF IRGWMHWHVU5TYr3LGSQRSf xwYXJccGFyfXtccnRmMVxz g1GhL4LeHjIjBEaughMzES RkLwlrhnteBLGdDCN3scGh EUFqMOxgISLiFKuvKv2mxK DouNvoDkAsSEIex7ssuvDY KEqbWzFjW708GCCmQWgng3 ehq8XuUZYmoECzh1N4LJXO ogwcuRq4v3ysVaVxDlW7tG RfGRnsV6inozEtxHVwO4Wd oNUbrTn1oWdlG99qi4M8Kc edE4bbXBJcKNSfO6NfCL6v VJEcQbf8ZBH5LZU7KOBoQP EzN7IhOG5fMXIwjBUmLEf1 m8oxiIcfOXXqOQW7r8ieEP rdkmV3XZ5bjh5rgAo7v3sy czEgRGVmYXVsdCBQYXJhZ3 RmcSjnNq7iyDi1eXnmPvrr XKK0Oib6NH2vgv64isa8wE vzMRPmznhqPxZ1MCgcWMMm zjuhYTr7JYlpDOErrPY2WY BpdAQdA7NpOEYbEW4pfvw8 DUM2ZElqTFPaCtH2VTZcmW CtGHPijGqjTQzva686CWE7 YeJsDK7nO0Lrq7T4xQ5zbK YsFRDcbEMzNhQmZCDkag0g sRAnJWguu8UxKWU2luC5tA PbdNVpKOJkSE18Bshae8Nq WbpmZUZ8TVJylvSgk8Ywz8 dgFnZdxiNqT5bsW3XbOAUd CLPgIZHaHyHrhfSgj1Hyy6 UfjUUacYw6t5vhOVRxWKKq wNinn2htGQU2YCLmJ5L1dI Kit4twFXotXONxlQL4etZ9 IYThqIJtC5OebU4oXQCxSM 6sfko9k9vgXIS3WFgpMCNe BpD5ziW2CDEwqUWhNVYiuJ azUNxpw858FRQ5ZpPrFRWm z2CdL8IenMfpD48xaMdxS5 7oOQTnoLboxS0pdUbzdI6p ZjBcZnMyNFxxbFxwbGFpbl xmMVxmczIwXGxhbmcxMDMz MAdcL8etYlBcIVWyxOjgQD rwk2FgYEObETAzHaolemKs XHBhciBJIGhhdmUgcGVyc2 9uYWxseSByZXZpZXdlZCBh iIyev9NjW9qzQT9sP6JshH DkumEhitAzIWaaQEVrq3b2 gEAtsPxsz0RnwGWjPA25ej KbCOWbQZL4IXEwm7rcRT99 bzqlZmNvgA21oySitzYwQD Nqd2jbG3igmYDsk9Mxq5Pj wiBeXNrim5KpDF2ahRJfxv lunUV4WPLihFAhlyOrasT4 qBzzHYFyqN2qxT5dkAtqzS 5sBiMaTzZnPFseOU4kZBJt B1iaxHJcPNSiBVMlU4kjFo YbtS7rvBuyNwldneP7QXHl cn19 Clinical Information (test code = [id number]) Shivani Schuler is a 47 year old female with IDA1. Gastric polyp x 6 r/o adenoma2.Duodenal Bx, r/o Celiac disease 3. Gastric Bx r/o HPylori Gross Description (test code = [id number]) l4aknTXxWHGqbNSFPUB7QC DdXJ8xzCofvBw8wXspZVFo zyF9qPVdBGbca1lbHMF2h9 tsklKIRwukUQOuBT3xQDei ATSuRO7sRgOrWPAyAwUgEI BhcGVydzEyMjQwXHBhcGVy eOZ4UBObBX9fgryxMLkzWC mnOSXfytP5HKEaqLPjS2Yv YUTuJN1xqvdoDFT9DCWWFz afOe0uaTJxoLczAuSbFlTh YXJzZXQwXGZuaWwgQXJpYW p9iO1CQkboTCD5MKEJYjmy GyhggGgpx0BgeTDbVLFlXX xcaWQgNTEwMDAgXFxkYiBP LiFkFmR3Awi6FXP6JyP9CP i5UCKJYJNfZcdwGUO8BtC4 ZEi6ZVEkQR0bBFpolTHgBU umMtlvISotF755AYdyDSCl K4WnA1JfZSmoJsHjIHnjES EcZPIzWHzmJOKuQ7RZJWOh VJS8QzJpPAMsRDg6HIrwF8 ZQSZZcCRIaCsV7RCJeKnJ6 CXl6DCJCOl2qDFkgYiJxPJ k1XQH3OGk1MmGcIFYjYmZv ZDNdDWMeIBlhlNIyFN4jmC plHPWaKO3IKGUzMZjdHATa BtLkN0SXR6uQNM9mVVsvhB JjaFxmczIyXHBhciANClxw SMYvRO4ESACuMJyvBNs2ig MlPFFnTnGlVQCbB09zt1NN l1CaFJ9WSRk7htBftthfjU 3wDDCwknYcSPjDcBKeaL2q uqHVJVpzWNQwW2EeqsOtHZ kvTUPtwd2waTpwXPziRjVt bGVkIHdpdGggdGhlIHBhdG vzvvNsJ3N1jiRdZJ3yCSHY QQIwoO3wGTCbPAJeb5RjuV YdwCixH0IkmLElAvRnq1v8 bTE7VJSaydXxPLWagPSxOM Kkwa7wDDghZrHtS7X5ACKj ZNVxw54ddWG0irIpMbVnsG c1zHVqTZZ8NS3nbXwxugUl a3h6wX0qLOYgx1R8PNPtl5 L6UQEeliIiyBGvdQPtZITw KQ6wknAiZG72PNPzRTsxWY dvNJN9DZP2YUZehMKrf9lj wdipBu2wNGalSM8zUKpbXG 48ANYmXXfaHMWgA7NmM8A7 UIzsBLIrGYKdtCGrcP9gby LmnmVktTb7WPTcLOG5qMBk lPylGIMgJuhhmAY7AHLfTq FpcvFln6KbgRz4iYWfHKld HNDuxO6flS9zDOAmLBFxll TJSlxwPBAbYBapy9UeIYta cGljWHNhMzAgDQpcZXBpY0 0sb8PFr9Mpa3jtrQogd4Wo nEQyJI6wiHSuBK0Lr4vmPN AiaQOfXDD9FFbxm2exLYyv YRJ2LHJfAcGhFNEtSH1LKk LjKNvjRTw7LNgmJAn9EZt3 QL6WOwVfYPGqAgs5OiA3Ms WvWNk7HWgnBH3BVVA7RRSl RBAtAYgpAAP1ZHTxCHk2RL IgXFxzcyAzIFxcZmwgXFxu O65bdKAcRGwhIyLsJTblnK dlIJOeURJ5ZR4AWSOtEpEp M0DQF1iABG7cVookyxHzME OpqaHRQiauNOQmYZ0ASDSh ZQlyBLo6keCnOIDdOpOkPL YvR97hc1HWg1VpIF6ZASk4 vuZcewvhaP5dRKDagwCzo3 IzMFxlcGljWHNiMzAgDQpT xFMtdO7ktiUBPVsoKNGoR8 VusxIbLCbyNUFisa7siRve IGxhYmVsbGVkIHdpdGggdG wmLXBgwSfdpdNbZ0P8dmXh HX4nIIMANLYclF8bUZOqOH OaDUBiMQTwjB1dPXV5r4Cu ncMxMQAONATvmVidBX60wC BjZWxpYWMgZGlzZWFzZSBh mgLcwvQoz78tcgWcq5FpSZ 9ugQfaEUuCZBtvXpXmXE4w YYYgotQvx8AtZI9kEPImkN HnDYCkrtvoyCHyMJg5zQNu KMRwYuFmpDlry4OjVGBdBR sqCZ06nwJnEK5jAUxhEA2u GZmnJX0nESLzVVVxDGYqGc ReuHYkZqCzhPBcAtLxJ04c IlJCrGRig6GvD5dtXL9snB ZfApohpFDzFKAfgSqxi9Cr pVNwFKGva3PsaIAbOWfuII 0gFJU6Xl5fdIEaZCSlzgT6 y1JkRGclSKWlLkntLZZgAQ xlq8AaFDCtsLVHt3CrCH6F XHBhciANClxzYTMwXGVwaW ULs7UxOCOERpkavCgxQzJu wQAkBvS1PJXidKTtKOF5FM 9mqBgbPSDjVTc4CPulFOOo D5QcD5CsTGehNxTvVUgeZQ HyGRMePGuvRQTrF5QNGBNw WRR7NwFaLQPqOHf5UUpiH3 RMRXCqGXJgQeB7LIK5GgD9 HDf9AWXEIx1rKGmcTwCpXD AsChA9BGc9KmFyISDtAlSk MJYqSFLqLYjaaBDkTN0cdD mkHNRnVEBtSCY5LVUioFCH g6BcPXQvCVvgUwTkPQUWJD KSPP4IWuQGRDLjUnYxvHTg ZK4ZDTOeqrFdAFgkaRbyoP 7qrKIhZ9lmNyPcKwvjwQuf TmVzdERvYzEgDQpcbHRycG FyXGxpbjBccmluMFxzYjMw DGPteLSCf9KwKIVAItJwQX NpbWVuIEMgaXMgcmVjZWl2 JRPbsG9aFb1rtFFqxS5hkL KoCFguWIIbe4t6iNF4aEKj kJI8dEVonLcgEzCbST6nuS BiMRLFEK86fFFmdvRjGLEw eD6qSTPtGZDhQCM9csiaZQ FMEJD0fPGgf1Z5GZsxRCZ0 rX0lfOmqNtVqT8V9QTOnCN Amu93zrTB5gfGyKeFrPSUa bh0ldW5qYCfjkrRwrOudfc Ayp1Q4QUGyt4E8UOQnkfFb bMQrmYVmDGOlWuC3YRReNk Q7IDLpCWAdrGNbLBIhPN0i VGhlIHNwZWNpbWVuIGlzIG HmfJIrvkIxTDPecb30Q1yv EIZlrQ4zs5dkOmOuMLJjDQ WcwYAfzKI9ZCCbnO7fcB18 jbUwpwEKRJ2cbPDhJT0XOZ NiMFxlcGljWHNiMCANClxw AQBzWCbea1GeQTzlcIfyNT EjFrBmNPgVrHpnGVPIW8xf mXJzPEwdWQFTNOlSW9IHJF 6FYOLudYWYQDA9PQ3nPKbz RXVwK9SbS8HjdbM8y9xlmP cqe3HyoJSdOH6jpXZnYN6D XHBhcmQgDQp9 Disclaimer (test code = [id number]) d5wsqYGeBSLzh4cuNYButZ FuZzEwMzNcZnRuYmpcdWMx VZqrpeDzVLrqm7YzJ2RfRr AwMFxhbnNpXGRlZmxhbmcx EITzLLU3hjZcZCKdRLeuRT TqEMrlJf6iaCKvnLuaDjXs MKAda5bkemYQLNvkDtGbD4 28PMBjCVsvu7ypr3KhQWFw iQYuf7B2QGUOxcvijVr5gL lwF82ga8T0ZisjI3cmXAPh FPXnH0ZlCT6eFQOwQnh3RT T7LZJ9XLMvBWNcD2AfZF3l QJZzcVSdTDv7b9jjfJhvGZ LfRSG5a0sbVRibwpHaRR5y og8huNa9i6ctubIiVKOrAI TjmBAYXRGoO9UadDliMs9v vHc3rCccWpniBFW1Qca1OQ 6pih92jns5pQlzIYQovivl AjQ5TWakALHjcyhaBJi6MV atZDNimPI2DXPmjPOfT1Fx KQKiIF2volr8ZDB6DZnyZQ AzBsH0UAHczIMrWJQlkAtv AVruv321NIB7EsObHK2yB7 Hwp2Q7iQ4qcWOkSXOqlJSm BgIqENGpnu0ikMKcDKfto3 XuXKH8uiA2tCGlbAMmYMYj FN23Ezgtm0ZcGtocx4HqX4 8oqXU5ZWtzt5mtSH8wBzR8 lnAiSView6eblI2oVnH6EO twWJ9mPY7xHQZtrO8idvxp XHBnYnJkcmhlYWRccGdicm LuRd6zlClvIUT2MBkzY8wz tA1pJgO7CHpdG4pqaL5kFE k7ZLqzpYZ9NYXtdK5cFY6y avxha5foSIzfCWwcIXBulr J3brY4VBVitZOjO6LzoT9x QVJhDX5yrnsra2cgZRR2OW jtGGOuAXS1HjYfWPAqr0Iy ydb3NhYno5UmtGQxIJffH6 1xf870EFWgrvTlQ2dclKSq pzsnhPQncxhjTKciwrS5OF KuelEtm6BkJWTlHEK3EMxa OZhakQPbKRGlrQndw6saA8 RscGFyXHBsYWluXGYxXGZz MjBcbGFuZzEwMzNcaGljaF cuMDwxDdViQGOzHZcnF6za QnPpL2ShYRLwGsOvyXRmN7 ggVGhpcyByZXBvcnQgbWF5 TPsyV0e6DLAfsiAtiFl2km ItVzLvKVJpJPB6QEgykDSw HTDpv4CuowhppZUaAk7gsZ ZyWYIvaX0jBIJaTYOoSUcc QT6kdKb0JGTVwDUbgREsPg BGRAZoCH03yfUjPUFOnzmt c1D6CSrmCYMvt7IsvOSgG7 zge7NmZDQvp74aCY5ib3E1 r2qqRTI8LO0ao3XcVKHtkB VdfYQpFHYuq1Fsdzsgn2Tg FFProcNmr3FcATHdweGzwC YfRDDufaZthk7rmsFnEZUq WWJrS8TguyknnSvejgHmCC Gggl0wstEtURX7SVVYSUVi XQCwr1UlaQ2xhWSYEKQ9fY Yvme0fzrCZtNFxRMZnie60 DAMhBJ7gV8zzAZLiASZljg CxrAWde6QgCFGbwGR6nSJd FP6DUaMFf42qGZDyEMVIgc CsTSJowMpnlSS7kjD6fX8c IChGREEpLlx+IFRoZSBGRE UvBO8fezEir0BhgfKokOvu UFQmwGApp3UzcYQgo2AnzR rvo7WypGZqgWWbSA3lUXCd clxwYXIgVVRNQiBMYWJvcm O4n4BlLSYvGHTlZJO8dKyd zak2BLXdcT2xCTFdK8mgrq daSFxaWYXdq5OwsY4qcCNB eROtu4NflSCpsJLFvVAvXB 9mueUyNKkAKDzCTRQ3eqKz GQIpy6PgLZtoR8jvC47iyY kznHu9wOS2NMG8yM4tOfw+ IFxwYXJccGFyIEFwcHJvcH ImBCYqmAmieeAjD2FvxyWj jI3blDTbpkRlFB2wKM4cN3 X6hDFvPWIzjlZwo0qjJPzq dmUgYmVlbiByZXZpZXdlZC Dib8YdEDrkSGD0MWnkzwFt bmNsdWRpbmcgSCZFLCBTcG VotYNpKZW0KPkziwIdddUt BF2zbX1bvVoycY3puRHcqV C8glpsACOnLUFumRxpXYLk MF2uoQlgvI8jHkVjLaDdYB obCG7dNVWuX8fmzPQnYOLe HDJgI3gyHnPvxY0faPixOF xjZjJcZnMyMFxwYXJccGFy XHBsYWluXGYxXGZzMjBcbG FuZzEwMzNcaGljaFxmMVxk MxCdMCZtXPdtV4hbLzRaL1 TiRWOnNoPxmQXrY9plMJjj KUR9BCXiDY7gnFSxQM87aD Aov9yzGYcagPicds6zU16r vERjRBsuqQjwEADnl99sz4 OgUWTmfbGvpm7pCGKgerX0 fE7lQDJqfFqhJQWfoPVtWB Kzm2YbVZmmfUKeqlXbLTsu JBXgTGWfzIEsebV1yfGqxn ItjmKkAEEnwZvtOTBzo7Yj ULGkDVwia9Dmkd3gnFSkZR SqynNAfNuyvQVqlG8iK6Uj QGUtJREcsk3kXUQcgL9tEX tpy1ExgxepRQBeIXSfZREt epWtow4eOGEgkNCJPA0FZQ cyiWQmt1TiywOhZ4tRNLW5 NUQwNjYwMjgxKSBleGNlcH AcEWSqkh37MINtiG3nlDur FRPlvN2glH4enBfziF9gUw OiGnFiLAyaHA4pRQYuO7na wQLmKZYvEETpJ0xaSuAuqO 9jaFxmMVxjZjJcZnMyMFxw YXJ9fQ== Embedded Images (test code = [id number]) [facility] [id number] 19:23:05* Test Item Value Reference Range Interpretation Comme nts Case Report (test code = [id number]) Surgical Pathology ?Case: [id number] ? Authorizing Provider: ?Dominic Keita MD ? [...] HPylori ? Final Diagnosis (test code = [id number]) [id number] FuZzEwMzNcZnRuYmpcdWMx MTjafnGpBKqqiKadISL6FF EeWB0izFjqwDx1nEvcHWUw njR4oOLcDSgwz4tlQPJ1h0 nygdciICZjBOnyAy5drZPg jXdkCqCkQKJaCVv2vE50SB AytG0yyBEdBKd4QHOpuMMq rpOiNmPnAZNrxJEvaBD2RV ViMO0gxgwhFAkpFUnvWRAu cbB0NRDlcWAxM6MxTJAhJE 2memibVLD9ULceITFbCPD5 OaKmNEPno1Jthed0KcRdxT FyZFxwbGFpblxmczIwXHBh krVQUuLWRX7ZWHIGJPNUE6 tTYHTVFH9XZSMUDnbiyUXf FQPvCVUkWSMDSI1FNXTrC2 mKPvPeUY2AXSZnGKAokFEv RCTqziRUFwTLQW7FSX1IRF wgQklPUFNZOlxwYXIgICAg OBHkDTuGU4HEGICcJRKKW2 CQBAbSPJnsVb0gGVZFZB6D J2yRY2MGRHEUEN6ZLDxbVR EjETVpVAJuSE9UPHttGSNE UR9NTFLYHUJZBUuWKHOYOR CVMLtHLUGTS7UWIPuRGOBw wncuGXSkKv0cV9ABCUKWJW wgQklPUFNZOlxwYXIgICAg STQwCFILV7CBSfCHSM8VO6 4OJVUQVCTBKF5QWEVKPQnJ NR3VEXYOJZVMAPQBR6SglX FyICAgICAgLSBOTyBFVklE IO0RVBDYPqTICJbXHHZuRX lTRUFTRVxwYXIgICAgICAt AQ6TPLyeWAPEAC7GCBIELd dBTklTTVMgSURFTlRJRklF VCTBQYUSGC0TMn7SIKWJHd xwYXJccGFyfXtccnRmMVxz g7RgG2NbMgRrDJyvoeKfTP BiIdnedgxyETWeTLO1yzPp UNThQJypUWTpGOxnJp6xjZ YshQhuCiMxGHLux4hsqhBQ BIewGqIgK024HLZwOMsmx6 wsd1AvCULwcRKsb2C1YPZV ocbuzSl9u9jvCdQhSjY0cL SiRFaoO9xuksNzoPEmE7Tk fQMkdPv7yKyvN59je4R5Wf yqL3pzUINdKFOsS2AhHI7n UWAxQzz3YHE8RWW5PYKcJU KsI2VkHH6dTHUzoQDkELb8 m7sztCxfZIAeITZ3o0yxXZ fqbtW8CA5mir0kpBt2s1ij czEgRGVmYXVsdCBQYXJhZ3 AkrKpxQi9ubHk9oBzfPfxe TPI0Sse7AO4tjf42dpn9mO viJINalwbzAyU2RCstDGQg eecqMQk8URbiGXZeiOQ0FB KltJYmK2DnAIZzFU0ofdo0 BWI7RRdwKRUyKkQ3RKSpkI NsLQWymOtmKMfcj231ITJ7 VbElIP3eI6Spa6J0oL6fuS WrWHKmnEHpWjShJWNgze7u sGGdLMxpr4CsWPU1eqJ7wA PmkMIrGPPnOP44Nkwpr9Su RvqgRPE9SBPzexEyu6Sbv8 omKwEoqqFbN1hcA2PoBSAk APGdZLBmZfJxgyVqb2Zhp8 CucUHjuJh7w8csHLDkJVKr bRood4jnAFY8MZExM0Q4rG Nes6klRIlaOJTyjOC7xtU4 LUHihVHyD6DuiN3vRNNoMR 6mqzd0z6emOEX3SYzeCWOw KaY7dzX4LQPteNHeZNUfjA ipWMzoz853JTA6GhSbZVDv o2RnW6XgeHugC39reJerL2 0oEMJljDzkbF8wmNrucK1z ZjBcZnMyNFxxbFxwbGFpbl xmMVxmczIwXGxhbmcxMDMz BPfdT4ycZlQkZZShiHsxJG zkg8TzCJSrBLJxJzinqnUb XHBhciBJIGhhdmUgcGVyc2 9uYWxseSByZXZpZXdlZCBh nSyjb0UaX3oyCL4kT4FfsY JwxmBtarOsFHzaPSPpw0f6 oLScpHhos7KaiWMiGC47xj WwNPXqIDB9NPYqs2grQD28 vhkvHiSihE44zcJlsoArKZ Oxx4mnZ2wndXFvw0Qns3Ky jaRrYSfal1NpPY5bvECkuf cpvON4IIIreYYjoiXikxQ4 aFxnFTHtcQ2smL8nzFvvcO 6yXyWyExWtUUsgAI2wFHYh G1gzoPWsGQHyCYBnW5iwSu NsgE6jvJamCotxagG6HMFu cn19 Clinical Information (test code = [id number]) Shivani Schuler is a 47 year old female with IDA1. Gastric polyp x 6 r/o adenoma2.Duodenal Bx, r/o Celiac disease 3. Gastric Bx r/o HPylori Gross Description (test code = [id number]) g2qnqIKvHSCloWMYBUJ5GV EaEE7kiOpqxUk9iLvcZODf cnN9tJScJYgpf2kqIHF8x8 yfycALGjcrCHMnGN7kPWxc LHXrZH0zGrPrCEPbXzHjAG BhcGVydzEyMjQwXHBhcGVy dUE0JAZlVD6jffeoHJwuPK oxEHQcidW8XMIxqHLcN2Lg PJFdYT5crtnwDKX5PHLIKk inVy6ndSDknCvrOaSlPmCd YXJzZXQwXGZuaWwgQXJpYW w2rY7WFwbyGXA9LPAQKtkf KiszxUxlc4LcwBAgIPHaIJ xcaWQgNTEwMDAgXFxkYiBP NfRhXxM7Cvo0ITO9AlP9HM c9AXWCTCPnMayqXWE6NhS5 MSc1JSBpUW4aXOewrAQfMP gbUwhxSOyoQ709XPkwYVRl I5EnK0CuNQzqPaRbLRmaGK BdOTFqUAnkEYXhW0LUEKZm YUP7EuQvDCBbIOu0FVteO2 IURMTmULIjDrW5DHDcDjL9 TJn0DTJBTe5aXOhcWyWlSY v7OTA1YHs2SkCoAHMvFmIg CPZmCHNgUQbhwUAhEY5btB xcNEIsBW2TGEUkQYcmSCIc SsRxS2TQZ1qFWQ5sUBjylU JjaFxmczIyXHBhciANClxw SMZfJE8IOWWaZVbnFVc6uv SqPGZcXtZtBRYvM64ld4XQ g6QcAT5VYXk5wzJtbxccxC 6vZZTmopXrOXgCnNBswU8j maOIXWnoSMCmT8GwaqHyDB jjTPKjfp8xbOolVDpoBzAx bGVkIHdpdGggdGhlIHBhdG ptflJlP8Q6fwEpTR5bEIWQ LRQmzA6tOPXpQRXpg5RzkP QtpWewT4LmpFYiLwOuh9s0 jCZ9RKOialHqGHSduSOlIE Fvvs4vXSetItUcG6H2RYHz YMYjk49ylTD5caGaNoPygN k4pGLrOIS7YX6gyZqkezJb p5n6xN7jCREju7O8YRNro3 F8SGVyxdOouRXqvSCyUVGg LE5opaSrSC34UZPcQQmpLE bbBMO6HQZ2BTSdjWRzd3ax lglwJh0gVJaaTK6wCEwjHA 46UNKvRKqyMHLxS5DzW4T0 TBvzPTQjLUWlaDXypX5abv VsyyMtwUl0BJYoUDP0iRSb bBufQKTxOjsedKV1NQHrUv FiqlNka4EwrGn0pBReEWba XXUinO1uiH0fKMOzQRTqhs HPDmysTDVyJLtyh8DbROao cGljWHNhMzAgDQpcZXBpY0 7wx5DGb3Fny6eiaTbok3Ee mJFbHX0obSFpGG8Ll4sqZH FllDMlUZG4XSehd7ewZQuz PEJ8LBDgTkDcYPSsXI5CQh IoKTlbIMd2VTkbNQo8QBv1 EC1SHxQiYHIeHpq8DdA1Nz SmCWv1WHgzQD5YFSF7FGRa WOKpBVwsNAT1WRLaZZf6EL IgXFxzcyAzIFxcZmwgXFxu V53yrJHgLAwlHhKjQWyadW ekIYHlSXX3DZ0DNUHzIkYz Y1NVW9uZMB1wZiukirSbGE SlviFCIzxbHAAgFE2BPLIx QJdzWMb0obAzUMTpYyRhGT AzI52sr5YXf7VbAJ0KHZk1 pgIvrvlsaF3fRCFjmlCzi8 IzMFxlcGljWHNiMzAgDQpT pXFtsZ2aegRSZGdlMXGqF8 GjcxAvGNjtVKFuwa3cdEyd IGxhYmVsbGVkIHdpdGggdG wpFOBxrOmhvoLkM0O5syEc WQ3kRYPGBFNlsO2zOVSxBS RtBZYqKUPfiF2xZUE4f7Ye vqVaSHQRZLXdrHjmCM59zD BjZWxpYWMgZGlzZWFzZSBh pzDwevEar04medNoi5OxZN 1zjSmsTLvZJIibEoRyEN7a GNYpkmNzo9IuND8kEMXksP JsXCEcikhhlPMwMXd1pRMe MUPfAqLuaYteu6NhRIGsVU qsCU18flAyXD8rFUlmNK5j GCabKI7qCCWuIDJgLVAsPt PbwLQyWjCxgBMqMtFkB22s CgTSrHIay8GaV8jcEL7njJ LwLacakXLbENKznQcei3Da hPXkFFUlw0WfaFLtDBzvPG 7oNBB0Bb9otKItAGZchyX1 n9UmJLpiOLYbLmlxJINgVW vkj8XnXWUrqPCUv4CeBN7P XHBhciANClxzYTMwXGVwaW HAr6EmGEEGMwxjmPdsGxMl vTJoCcL0CFCsvCCxNHJ6AJ 2mrCbsOIMqJJp1XWhoOAMj S3PaT2ByJNseLkPsXHaeHF JnINXrNXyfQVRiI3OTXLGz CPY5KeHsWOSuADk5INofI9 JEQRGhUBFbYsS1NPS7MbZ1 CXv4PKPOTr6wQGdfXqJiQH BtJcN0HRh4YgPbIKIbBbEz LIXrTCRmVQxbxOCuBM3mvQ dxQKLiTHOuYHC9XIFgzITJ q1TpVBSrMCqgXaBoHTRWUS SLQP9WKxKLYWCmXpIejYAq TO0YNWSckvSaVLkvkKcxjT 8ldVBiW4ftTjFzGpwwoXob TmVzdERvYzEgDQpcbHRycG FyXGxpbjBccmluMFxzYjMw DOLvwZGKb5SmJJNOShHjTS NpbWVuIEMgaXMgcmVjZWl2 TBGxpU3vXp4ogCXvnY9yuB AmSWyeSYDeb9e2pHT7sCNx mAX6dKNarNymOzUcVH3dqV UkMCPXJW38fYIahhDhTMYw pJ5sVSGrVEQaVHY9kjxqJM DHZEA0sMIou4H9VQwrGWQ6 dY6qmRhvDkKjX5M2OSInHK Zmt38ccFN2xsOuCiHoGKPy bo2pxA3qDPbthkSidPzelo Fji6F3IFQbj9K3ELRjvtFc pDIfjZBiGFRnSpX7TUAsNh N2LTEhOSDavQXwHAGjUV2x VGhlIHNwZWNpbWVuIGlzIG JjxJQpygJjYQSovp74C2rr NAAuyU7wd6ylAiUaRIUvEE ChbHTobXJ1LSKfdV0egJ67 ieEnsaATHU7huHTjJD5LGZ NiMFxlcGljWHNiMCANClxw CLUvPPktn1JoZQpqvQgiHI RsLrRtDHdJbGchHWOOO6sz pJRlPOveBYOAYRsHB9PLWK 2VSUCdoDUDYGP9FH9vGNle FVOrT9XnD7ZurxA9i9lmgM eof2WuaUHuQW7snKSxJZ4U XHBhcmQgDQp9 Disclaimer (test code = [id number]) d2ivlGJtQSTef5yuILBbkO FuZzEwMzNcZnRuYmpcdWMx ZLzsqoIgQUyep6MjD5BiIr AwMFxhbnNpXGRlZmxhbmcx OSXwFJE4vgNjIOPfVQoeKW WbJSuzXi6ogNBanJvaOhCa TQSfk4mrraHLWBzdQoTqK5 41ZJBeWLutm2ify3XzMHLp fNWfv9D5IZTXjjeafCk9iI cnN26jy9T2BtmdQ4itWERb AIHrT3SoMB0nYTImYxf3TT M4UXQ2FLThRLFvH2VwMH7g SPDvnHJlXCp1z3rhqCfnQB SeETW4k0wdTAkxzeBcUX5l jl9osAr1z4hrmfPfDREjAI QogORRIOWxX5WxvJczWg1i gBm0nCzlVwdlVWE7Vzg6SI 7fpm75zsi1qUvsOKDlotpx AxB7WUthLEGeopvyPPu8LJ irUEIvjVN2ZYPxtTYlE7Uz XCMvZA7skki0ISM7RQcmQL ZqTxT6KSHqdMDtKKWnyMaw SQnzw148QCI1LcCeBA3pZ9 Wdi0Y4oN0wjTDoRCRrrGWe QjAlXRHcdi6vpFKoKKnqv4 FfVXG7maK3lIWdyQVzBKVa NX54Mluqb7MlGjcza8DdS7 4yhOL3USyeh6mbES4kGeF3 vjCgSIfvl7zokW4vKcD5MS unJM1eMX2rVWFvoM9aainq XHBnYnJkcmhlYWRccGdicm AmPs8uzCnlMQM2KOhgS8bz qX6aBhH4STkoN1goyV5nYJ k1OAetmZT6VBPatO3aSP1y rjgft8odOShwZJvnZIJimt X1dyI7NAOnvOGuE0FicH4o LFVoJN4mcgete3rmXYC1EY fmCXWkIYO0UmInUVVhy5Sb hze9EiZrl1OwqAVrXBlrK2 4qv230KOBgjeDjT1cecERo gsuqaYAijcptQTcnvlK8UJ JwejIsd7MpNLCvJIZ7RWpq IHkenWSkEYLloPtuf1rhK0 RscGFyXHBsYWluXGYxXGZz MjBcbGFuZzEwMzNcaGljaF uzUXqoMuFrFPQhAQezB1ko BkDhS0UaTRPgDlBfmVOdX9 ggVGhpcyByZXBvcnQgbWF5 YQcuG6a7TQYixnIedHp7mf AgWyVlONNiLVL8HLflcTOx JBPqv8YdlfvanEDdRr4uiQ UzQITwqC0qPUXdQMKsEGot MG7yuBo8ELASbFEorMQkLo AOPUXjHN60pgQdITABheez v6F8TPdwNZTpd5RhdYEhP5 jgd6FdYSWrg13yDX7aw9O8 k9wvJDM8CX0fm5KvYTObbI RzmOWcLGEqw9Lpwurzv9Vm ZFCsinKjm1KbQRLrtgKqfR BdDICggpGpqx4ffhIyNLLb WVIvR8TxxlpeqAeezdXkVV Lhun2idiFzJUL1PXCMVPAe BCQmu4SexT2djLNXVYD8yJ Cjop6bvrWTkUNcABKdyg76 NJZoXN3lN5slBIXjTJFrsq DyhJIno1EwATYjfIP6eSWb HH8EWaJHc99hZFLzTMPFuf SrVPPukJehyKP5ppF5yI6q IChGREEpLlx+IFRoZSBGRE ZgYW5eydSpz0WvonUmxXjc QZUunJZoy5IpcDBlj6PrwI use4OqfOKprYDwWD2cDWDa clxwYXIgVVRNQiBMYWJvcm I4m6UaVPUoBPPsSXY8qWag ycs6XDSxfS5zCBSmP1dyht dzOZacXQFmf5BoxH3uuGFY bXMzr4KroODjxMJUaVMlAJ 7ounDzUYqTNFjTLJR9liGk CIOdm1KcRBbvP1ieL61kiI kteZw6tRQ2IKE9nZ0wBam+ IFxwYXJccGFyIEFwcHJvcH WwSUPfkFjoucKhB6WiuxVo lY0qsEAmfyUsEC8qFW8rN7 Q6rNKrLYVtwjQih1kvAMzq dmUgYmVlbiByZXZpZXdlZC Vxr9IsFFlbIOB5CPrcbcIe bmNsdWRpbmcgSCZFLCBTcG VzcRXfALL5QUjcrgOmefTc JE4dqX5mbTdgnM9luNFpcH R0tcuwUKGnXQEmwVzhRDRd VY3wrJtcjC5vRdPsKlLxNO ldAV5yQFGsO5xvdLGuHBWw WZLiD7bbKoQfhO6yxBpsDC xjZjJcZnMyMFxwYXJccGFy XHBsYWluXGYxXGZzMjBcbG FuZzEwMzNcaGljaFxmMVxk XzEtOXAbKGojQ4pbGfDtO9 MfJXLjScCtcHJrM1iuUAgv FBR7URSfOI2doBEuCG43cS Qiv1lcDRsxbRbtek0eD22z lDEmPGrxaQgmFJGkx45fc2 HlZPHzleYgas8qQZHqyeG3 nB5pCVLllRogMROdlCDjIM Cjs1VbKWnosZYoqfBiMUxk WYYtLTHmbXDvgdX8moEpzb FwskLiIYPfhWccAQJlf4Pl PHUzIMqqj4Dnmj3ydVVvOL XkxtUPhXeozIFjvX3zW5Uk VJKxQKMsjn3qIDKexN8tUA kjr7DogmdhHRNkSSSqEHQl imBice6fLXJlgVWJLV8PVV ddjOAfp6JschKoK5oJJPS0 NUQwNjYwMjgxKSBleGNlcH GoKTWmok01XNDepD3axDvu TZXvfM7yyC0zhNbtpE1oGl MoUnLdRRtdHU9hNODmY1ll vSTzJGXgVCWgJ0ikYaLhpC 9jaFxmMVxjZjJcZnMyMFxw YXJ9fQ== Embedded Images (test code = [id number]) [facility] [id number] 19:23:05* Test Item Value Reference Range Interpretation Comme nts Case Report (test code = [id number]) Surgical Pathology ?Case: [id number] ? Authorizing Provider: ?Dominic Keita MD ? [...] HPylori ? Final Diagnosis (test code = [id number]) [id number] FuZzEwMzNcZnRuYmpcdWMx OTeiwwUhAXdprLdgJTQ2OU RbBR2szOickVo9aRxxDIGn jhE9rGAvVOhcz4xbMOT1d6 ldhtskZSUqQOrlHf2ggRQi dLrqPeTxATHhQXi2gR60TL NcaJ1pvPSqICh6FXLrqMUp zmIyFbTgKSDwjECdiQO3GP OlTC0xbfycTFulDChbGTKo pnH3LMQjvGIvC6MhQUHoJJ 8kugfiYNW6LBzdXAYfHCD9 SeNgGHEoz3Ojtdc0JpXwfM FyZFxwbGFpblxmczIwXHBh gbKBSgSFDQ0BIEJENOOGQ0 oOSOMOFN4BRZKYPazsnMZw CNTmVVQpQDKTZX0HRCPlL2 wJYvGcFQ1OZCZmRKRhiWBs HQApzoQQLyDABV4TFC4QFV wgQklPUFNZOlxwYXIgICAg HKZzOLvMP4EINSAkLOOFZ6 XCRYaWLHomYh8eBSAPAP9D D3xKJ4PLBYWNNC7ENFdxRP NtHAQzUXAbOE4MVQdkOICE QN0BAENWIFVVBEiILKMRFW OHCCpKRAVSM4BLHBvMWMAr vntiDHAiQz1xE4GVWMXIHR wgQklPUFNZOlxwYXIgICAg SVIpTQLMP9LSIvLAUH4UT0 7MMWBLFYPWPD3KHOIOZDcI GU5DEANFJSHDVTUQH3UinM FyICAgICAgLSBOTyBFVklE WW5BEAZNJxJHJOpFUNMqGW lTRUFTRVxwYXIgICAgICAt GJ5HMKknLVQGJB4CLNKAGi dBTklTTVMgSURFTlRJRklF ZHAQHGBSNQ6TFr7SWBDJIl xwYXJccGFyfXtccnRmMVxz v2YfT2DcFaHvNSrrhcHyNS KrCxyqqelbKOJeKSN4gfWo ZLTfGUzwPEDdYWqyBr0epR OswNkpAqUhCYCfe6oplyNU VOmzQtKyZ474EXIqUBrql8 vig3ByZBTlfIQxf2H6CCCV fzfllYx9f1stEhIkOvQ7jP PjTCgpH5vpudNelDEiB5Or kYFohXe9rQovI23tl2J0Rv ueJ4uzKWXcFJVgF0FkUZ5v RUVdZyc0ICP2HUU8DJAdJD NyS8CbQF0nFTNdqGMtCKt1 q7dqrOxjIKCqLXK2p2dvFY tbmdH6OH4jtv0khUn8r6bo czEgRGVmYXVsdCBQYXJhZ3 LzkUuoQn7ehSf7hOzkCefu LTX1Egz3CB2tri99dub5bU qoTZYlmkvlGzH4XFfmHZFa godbXYy7CMmcMFApaBB3XE IjvGTbW0IrWJKgHR2pxhl2 CFS5UEzgKXCjWyF4KQFpzE ZkULLocCasNUzsx226YLN6 IaMrIA4gF9Hiy1J0mH5elR NwRROiuSAcGiXbJOPtxt8d eMDhWKyzr9EyYVB8ifJ7dS NdrKOoKVEjCF82Vhxeh2Mx QswfAJU3BSRnquHfj5Huq4 prIcDiarPbF2znK7VkYBJw QCEgZXXeZvHwfhLik7Pel1 BhmPWffIr8x3sbKLBlSTKi rMgpw9lqDKW2SPLnR1B6xM Mgm9mjDTheEENzzFT3wqI9 LLNpgWDhD2AhdX1zEIDiIU 5hkaf2t0gqEWF4HNkzHHWu RmI2prL2WOQeaGMlWXNvuO nlSUtym873ENW9JyTsUWZw x3JaD9DhzCpqI42tbVgvG7 0bNWAwnEpqbK4voQxxdS3b ZjBcZnMyNFxxbFxwbGFpbl xmMVxmczIwXGxhbmcxMDMz MVbaZ7yiRpJkRLEbjXzuAJ pbb2HiQLSsIMPlNctdobBc XHBhciBJIGhhdmUgcGVyc2 9uYWxseSByZXZpZXdlZCBh dYipa5KfW1ymHO6oG1VgeH AembUdduAlLVboCZCgk3s8 jCMhwVstr4CrxPNtFN13am FlXSXjWMM6JJMub4trQF05 tgmuCyLpnD08frBabjDlQB Wxs8juZ7ohgFWcv2Lcy3Un peXlBElfc7ZaVJ4qtPClvs istSW2XEPrePItpuHbuaI3 vFzfIJDurZ3gfY0ywKozjN 0iQuIkNnHjWSspIF4aWYIo T0zpxFLdWKFjDMGuT3afZc UoxO8uaPzwQaitvnA1ZZYn cn19 Clinical Information (test code = [id number]) Shivani Schuler is a 47 year old female with IDA1. Gastric polyp x 6 r/o adenoma2.Duodenal Bx, r/o Celiac disease 3. Gastric Bx r/o HPylori Gross Description (test code = [id number]) f3vghISuKUGehMKXIUG9ZR FlUC0rmZkszGq2gStfLVGd qgP3sLKsNPlhd8hfJBT5c0 peefQZCqcrICImET3sLMfl TPQdIA8gCcJfWDMsSsElCK BhcGVydzEyMjQwXHBhcGVy jKR8QZZfZV4yxxnuQJstBH mqKUShacX4EWDqeHBtY6Hs TVZdGX7pnptpCTA9UOXOQo gyOi1eqMZadCcgGfRjPsLd YXJzZXQwXGZuaWwgQXJpYW y7aR7GLgghHQW1LIZCMwpc VaeevMide9AzqEQmRPChRI xcaWQgNTEwMDAgXFxkYiBP EhEuTdN5Agq9SIO7QtO9JK u3DUJMQRGaUhojNVH2YiQ3 RVz2LENlAK9xYGzuqRLcRT ezWogxWUwqG082RGtmFIXa L1NzB9LzIZhlVaNfTGvcUB EtMTZzKWaxZVRnZ2ZNMVVh ORI3VxMyMKSzTYx7RFarK3 PQKKLwCDQhHdY7XZAxMtO2 SJm9UBROVd8gTBpsThZhQF b7HWJ6FVy4PnWrIUEzSsEq NQXtLBJfARdjrCQiEM3jsW atKMEyTE0ZINOqOQydRVQv NnSnQ3JXC1vNCS2fVHrmeY JjaFxmczIyXHBhciANClxw UKCoCS9SSJGeGHbgOQt6hr OpKVRjUtPdCVZmR21iz5LJ a1AnNF8EKHf3ylAuewqpjN 4gZGWdtfRhVXzEwZVsrI0j glPVYUpcALMkW3CgkpJeRB uoLPWwhw6fzGsuIXgdXcAe bGVkIHdpdGggdGhlIHBhdG ctqfCnW9G9ssUiAL4yQPBK ZDSltO6vGWMgIDBis1SveM MjsLvjX7CmaQWpLzSsi0q2 nOB9QHSzzwMhOWRwzVQxRL Yzge1fWMtlWsNuK6Z8PTCj HGOqg15jfAG1wkIhUuPinZ n2mLLaYNQ4NC4yjUhrkhIk s9i9gV3lBVBrx0K0WIVna2 L9YNTypyJbcJWzgCPyPXPb LL2hgiKvEK62FNEfFYvcOJ hzHJG4RCG5GJYrgCPoe8ee yifaWc0tYElvCW4zEFaqGM 69XVHdTUepCQCmE5JpY3S8 OElmBOFhLEMarNDohD0ckt GgreSxiQq4OBGiDZT0hDZh hOmqLAVxMecwlEM7ZNRqSc WctkYir3ZgrPu8uGTcTJgw WWVudH0zeQ2vLQEtLCEoca SKAxttFOTmNCuau0FyDJcm cGljWHNhMzAgDQpcZXBpY0 7tv2HGx9Tar4xokPqfn8Ht iVStWR9viZMeHZ2Jm9pqHK CoiTDiQNN5HDuoe7vxOZyh VUP2HIVaIuAbBOJyCR4PDy WrONpqFMx9ZOwyRPs4GUp6 TS0JYpJmNDAgOvu2VxM8Jo MmWDh8RGykSW0WMRK7QHZk PVBnNKolQDS9SJEdHPc8AN IgXFxzcyAzIFxcZmwgXFxu S79dfEYvRAodVmTyHIbvbK crNEAoOXB9FZ5PFRGnAcPl T4PXK7zTBT1aLphgpvUhTY JhruMRUtffTHAaVZ0LYLCg TXziHTw1hqNuUXDmXuHqLM OvR95ih2AAx3NkGK3LGWr7 llOmwdfdsF1vRBXnjxBec1 IzMFxlcGljWHNiMzAgDQpT bXLiaS2jdoBBQLsuBWFtI2 GxzxSwJAxyCBNcok2gbMlr IGxhYmVsbGVkIHdpdGggdG meMOFoqQdpwoXsX0G4rkVj QZ6oUSMMAAWdiE8hZEMuAU LjZRLeOUCcpL7bSMS5x8Zi qwTwNFEZJQPgnPciDV24eK BjZWxpYWMgZGlzZWFzZSBh vtOrnkJim29fswLqm3CkRD 2huOefLQyEIWgqTeQwIP8a QPRfqnOqq8MxAT9rFEMohO KyIUJryhfmtLXhUPz1cJQn UUXdWdOatEaeu9MpWKLzME ylFD86fhBfIC8jVPrrQN7c XWyzYZ1bDBMwZEOaIFMbTu LgiCCbYlQdlNYmWvIeY50v YeRPzTEoi7CoB0sdYP5hvG BqIlcosEMtJHDtaJvwy1Zi nBIdWAGbl0ZilPMdTUyhBF 3pAFQ4Gb4ciALgAYWsjoM8 x7CpLSzuXJLtIeokDIBjYJ shp7OrIZKigHIAw2HjHZ5N XHBhciANClxzYTMwXGVwaW HZq7ZgUZLUBumajFhwHfNu tYAoAyY7CDVadYBhSQO4BM 2eeMeiLSLtOUi5IFpdMDJc H8LnO3VdYCwrTgGxEPepMD DlMRSbUSehXCPfU5UQAQYj SPC0GjGyQLXwFSr4VYfnL9 KHGDDeXHJcLyG1SCS9VkC3 RPn6PBOAMb8jNYmvPuGuME SrVhI3WNt6SoLgQUFpGmTf OKQtQYXzJHhawQItGK2cdQ ohXSIaTQZnDBP4BWNbfIWE l3KeQRJhZRlaLkVcYAQWQA HYLG0QYqMKZEYqLuRhmXGw PF6JSMBcurWjPTzdeUduvP 9wjNSpS7enAuVcIqgrwNcx TmVzdERvYzEgDQpcbHRycG FyXGxpbjBccmluMFxzYjMw IINyxSUDf3RrVNSYCeMlAB NpbWVuIEMgaXMgcmVjZWl2 IBVseA6lNm3mzFGwhY6usD YvFOvbMVIik1w5bEB7dHYl yMM0tGXjhQzuOfCfAY9rqF TiTDYCJU07cSUgxnBoBFAx cG5bPFYtEOSsUAC8egzmIQ JUJHK3oSUvv2I3MDgxARF5 iH3avLtyAmTlT0T0DTVjQM Xkd51psIL1wkJpPhOfUKPm ag6fwK8pTAvytwMimWzqgl Owx3W9HVAdc9L8WADbdhUs tRYubIVcOPEzVxJ3LYHiDz L8ZRAgMEMbkFBpNJYyJY4e VGhlIHNwZWNpbWVuIGlzIG VguPVvhuPnRRZtxw89L1nw CMKtkK9xd5svFsFlHRVkMD XavKEvhLK5ZLYxoS4kxJ91 atQfbvFPWN0aaOEjDF7OKU NiMFxlcGljWHNiMCANClxw UFJoLVeeh3FaVBtipWkdTT GaXpIjSKyXlObaMUBQM6ki bPZuGQwcUWKDLGmHW7DAMX 1VEQEigZFKJYD8JS0gDLwd MVVxR8IkQ2EvisN9d4zpoG lju3IyjDCqFS8uaLMrCS5E XHBhcmQgDQp9 Disclaimer (test code = [id number]) v4qfwWHkRYNrj1yaVWPweM FuZzEwMzNcZnRuYmpcdWMx NLwlhtLzNJyco0XzD3LfSl AwMFxhbnNpXGRlZmxhbmcx DLMxGIX6kwDqXQXvFLytQG MvQSloJh3dhLJerPmpNmKv ZMVmp7iiaeSBXAbeTdXxX5 69JGCwYAdaz5zgb5FjJPVu rZPfl0M0INKGopepkTi6xX ayE79gd4W0ZmidD9wrPZAi YEOgA1LuXL4eBQOqVaa7MU F0QFL5GDXaYBWoO3SeAJ6p EAGefEWyIJt9b7tgvDhfJE NqIBC1j4hpFUezdpAwSY5r sx8qaSi2w9mkctCpHNPdEU CloLMGVPGnQ4DoqVtzRj1y bRk8oGtxCeooYVC1Dxs0LU 4wcp82sfq2hDofTPJtscbm WfP4FHdfDTHfacojCHy0QJ noZROavWA0MZTmdGPaH3We DUJtEL9tjvj6NFL4SFtzJD CvQvM6HNWhpGDrFZOpgLqy LFssq145SYR7ZeIrTP8zH0 Cyp6O8fQ8agZBpOWJsaIFr DeXzQGMowe6vaXRwIKiec1 ShMNF3rwW1dMJiuHQrLHJz WJ07Ozlwp3BhSxefd5IsB3 1ytHN2EClok3uzRY8gXsA2 iaIsRWvxo9dmsP6mEgD0YG egYQ0uVI1bGGRruV8oqwjp XHBnYnJkcmhlYWRccGdicm SeNg6gdSmqHYR2RUmqN1yl hX8wBkW4MOtcD2ccyA7hFW b4QAsluUG9NVUihG4rEY6z ffdjw6jgHZtnPSqaAEQbze Y1dzJ4XFItbPFcN1IvzH1p UQXvEX6qzgqnw4fjYYG1IR axDVHjERO3DzKvOKSxq1Qx nkr8GiOmh7FqsLQtIStgA6 5gk720BKPoxcPeW0rtrBVy pxseoIYtcetwBNhhdxA0WZ JfloYth2DtURUzHGQ1DJmf VXuheLDcSTLdvKkgj7frJ8 RscGFyXHBsYWluXGYxXGZz MjBcbGFuZzEwMzNcaGljaF oqOAjfMdGsTJEzGNxxG3em NeAaE4YkSVXiTcNkiXOhW6 ggVGhpcyByZXBvcnQgbWF5 FUvaR2v2YIDfhbDtrWn5yo WlLxSkADOpGHU6IHdtcGFg KOSgd9KqtzvxdXVuJl3feX HvLXQubU1oIIZmQAMqGWmr XU5tgUn8USNPjKPtyPJsVi RIMZReAF46vdPyTIHThdfp x7A1KVfxOVYzc5WrhXVfT3 dcn2KkDIAxl03xNI6xr1T5 c3kzOON6SF5dk0FyKJYiuV YgfCZzQXEph8Pcbnogn2Vr EAJhykXam2YuUCSijdAchI WdEXSluxLecv8glgVyXYWl FDRyZ4JrnzvvgUqnsyXcXD Vdsz1gcuZiJSB8TARKYDPk DXWzz4PxwK2zdDGMKEL2oE Wffl8rfcWHaRQkRFTrev20 OUBjNF5qL0lkQVHxYIFxsk KsvYVmy4WpCBUzcVI6sZRo MI6VBuOPj56kEFJrOAHWkl RnVVJijJhlmWY2miJ0jS2r IChGREEpLlx+IFRoZSBGRE LxGQ2nftPnb0HracAhjDns RPFrzQVfo7EgqYBsj7LqrQ oet1VryDAhgYNbCN3nUBPq clxwYXIgVVRNQiBMYWJvcm M6v3YwIODbCWGuZHE8yKff aey2ZMPlyO5kHBYzI3emdv ryODanBMAcu4TcuH1vyBUW oBUuc9SbgVIycXRKiKMpRU 6qacBtPXkDFNhYJRV9xgLv PQTso9UwPRuvQ7ceP25hcA tlkXm2rJN3QMX4cY1nBwq+ IFxwYXJccGFyIEFwcHJvcH CrTBEfxAlpzcNjX3GhmmWu aH1dpOBaywNbXJ5oPH4fI7 T9aDNcZEBaobKms8oiKAqg dmUgYmVlbiByZXZpZXdlZC Vqg0AuOKfbLJK2LOgmwoSd bmNsdWRpbmcgSCZFLCBTcG TyoZRuVLP3CWgzdcFahnNl PX2qoT1dzAomtO8kfOCvgB O2lhxpCJGpVBAflIjgDJNx QG3obXanqS9rQmGxErQeXP xqCP2hHHUjE1foeUTeLIFv BCJwW3pgWrWfnG0uqIyzZN xjZjJcZnMyMFxwYXJccGFy XHBsYWluXGYxXGZzMjBcbG FuZzEwMzNcaGljaFxmMVxk IdTwJODrFQlnL2qmEyCoZ1 PmSTSaWuTfnKGoU9xcVRrw PTI4QKImAX0toOOfCY61jA Woe5xlPHpcpAcxrm3fI31e xCKiVTsaxEfeCVUqp53cw3 OwOZKhvoSstb4uEAImnjF3 vA2gJUNczJnnXMBijKQyIB Hwy1GxMNwxzDDevoVqLIny GHUyJAOkbWThwoV4yrMilc OtnfRnRXYhuIiaHGAou7Ag PFKzJMpjc5Trur0uyPPzKP OlfzQIqOiuwQFdiI6bP6Ul ZLEyDVQehy0vHSXntL3vEP tef6QvkjmpEYNhJHVvQEZb rvRnrj8zNUEkfAWNXP2ZUG riaKYjm3ZctuYrH6eSCOR0 NUQwNjYwMjgxKSBleGNlcH ZlTXYcgy99VMWfvC2rrDal QBSshU8usU2hrLkjbT2rMp ObFsAfJJfbGC6kVTCuI4lg lOQlXZBsJNWrM8wfAoBbfK 9jaFxmMVxjZjJcZnMyMFxw YXJ9fQ== Embedded Images (test code = [id number]) [facility] [id number] 19:23:05* Test Item Value Reference Range Interpretation Comme nts Case Report (test code = [id number]) Surgical Pathology ?Case: [id number] ? Authorizing Provider: ?Dominic Keita MD ? [...] HPylori ? Final Diagnosis (test code = [id number]) h6tjyJPpCMVol0gzBDJaxS FuZzEwMzNcZnRuYmpcdWMx ZNcpkvMlKGsljLqzBHM5IY QePT5gwShliTm3fStjHUUw anJ3sLXkSGumq1tvKKQ0j6 ovugxmGINbFZkzOv9pbPIn mIqyCfKwYRByRRu7uM56LL YxmM3xxKRaDNl2HSZnqBFp exOqPrXhITBwhBBfoYR3YT KqCN6fluplQJyeKFlxTDIs uzU3FDTdrGMgK8TkWZQsYN 0jtycrBTB1HMwsDNVmODW5 YmVxTHYii7Drrqz3ZqQsaG FyZFxwbGFpblxmczIwXHBh pzXZFlILMX3RURZYRWYXG5 zDUTYJVR1JHFXIRrdutCUx QLWjDVBwHWAMKU4MPUQjI4 lBPcMaLW8QRVYhIBNsxAPu NCGpfrGFEtVMZD4MZP6UHV wgQklPUFNZOlxwYXIgICAg IUYgXVgYZ3XURHRnCYMTC2 ORFVhPDUlqSb4uVPOOZO5I X1pSX4QNUWEJLH1WFLpsCC GlISIyNZGiVA2BMJdtFYUZ VH4TVCNBAMHOQQcFKWVAVD GRSTyDKZEYO4NRRKpDZLGx miqfPKRbIk0xY9UCRVEHVG wgQklPUFNZOlxwYXIgICAg EXYlQABHK9DLFwJGKO3WL9 9CRLMDSDEWAJ8QVMDHICyZ NQ4AAOUFEXUIOENTO8NyoR FyICAgICAgLSBOTyBFVklE KH1NJYPDDdACWRtDVYQpFP lTRUFTRVxwYXIgICAgICAt WB6LVWufTRUOJA5HOWTWJd dBTklTTVMgSURFTlRJRklF ZGQFGGMFJE9CSu7UUNNBMw xwYXJccGFyfXtccnRmMVxz g8BvG9AbChUzABfnwsXqIJ SoGmcflqebPSAmPWO6joFt XTJbLRsmAIIxQQufDd7owU CjbDdfRzZiOVYoe1lnpmVT IPbfDxDqB935GZOkFAqxs3 hnv8XjISJijSArp8J0UGYL ecnhuCe4z4miPoLhWgN4wZ EzAHxcW0iwrtXesSOfF3Ox nOPwsCx2yQwfK32xs9O4Pk zmO3boJDLnFHMmT5OeGF3u FMQdTip5NUW2EZI2KYVbPW TpQ9TxDG3lGELfyABhVKy9 n7yoxYhgVKHdRXV3l7uvXI lrhhR2PI3wyn5zjOd3p2mw czEgRGVmYXVsdCBQYXJhZ3 IxuCwvGy1mySo1xKnjYkxh LEX9Vvg9UR7avc77anb8tU foHVDomuneJlI0SZftUPEi jgqfNZr0CQvmYTKlmSZ5YH QnbSWmQ9JhRVQgEH0kbox5 ZQC7ASihYNKoLvX8JQAhjF PfTIZneQgdFHkfm534JPX9 HcPjPJ5nU9Vnp1W2jP7ppO NhRUXehPDxWbLsOFBwqu5f dYKeASphj6TiITA0upK0hN EcmETgFBOeCV75Gppxe3Te OvjvUUF2KQJuxeYit4Nen7 yuXyXesiGdT2boQ1LhFVOi FUDmZYFaAmXzfjYfl7Nlv0 AucUAciOj6d3cfKWKqBGWt gGcir6kwNJB2GHElO0L1xY Ixt6qhFZvzLYWwrGW3qbI8 XNXkfNRoE4MfeF0oAOPrZY 5dnfh7q7znYJV7HOpuRUDc LjR0veU0VMKnpLRzOPPihZ mkFAlyu161EYZ4FhQqIPHj t5JlG4TwiIuyJ48lnXqgW4 1lPBGspWdrfQ9kbVqxuI9o ZjBcZnMyNFxxbFxwbGFpbl xmMVxmczIwXGxhbmcxMDMz XZplX1laVtKsHSJgoKmzUN zgy9UnVCZzFTHmBgdyhuOy XHBhciBJIGhhdmUgcGVyc2 9uYWxseSByZXZpZXdlZCBh oHzfa8LdT3sdIM2hJ9GpwA LbqiVudwQdEXuwADQtd6j0 xYDzuRjdi4GvuIScJP60wy UjJFOiGWS2CDKtg4wcCU68 hltvUqIubD83dtCtjrNrCG Inr8jpO3qzsGJuh2Mgf0Bs yfVnHOoia9DgLV8xcRAmhq gciXI5JZAdqZDguvYkzkQ0 wCzoHQFmaV1fiI6lkXofdX 4zFeNpRxViGGohSU2lLLBe F8myeEIyWWAgALVrY7taLu ZquY1luMmfRdbzxrZ6UTTv cn19 Clinical Information (test code = [id number]) Shivani Schuler is a 47 year old female with IDA1. Gastric polyp x 6 r/o adenoma2.Duodenal Bx, r/o Celiac disease 3. Gastric Bx r/o HPylori Gross Description (test code = [id number]) q0hmuQUsGHBheGHBZFU9HT AiSJ1hsZgujZv6fDcyHOEm adW3nQIsNXwrz4xtUIV7w0 xlhfONZxmlCZRxIE4jORhx OTLjEO5xXjPiPSFfUoGfUI BhcGVydzEyMjQwXHBhcGVy wIL0IICpUN6xxcuiKRoiLE eeTSUatdP1AWOevIKgO0Jn SYEgAD6epzaxBYE4VUWAHw vcLa3xyVPbhYimOhVaLvNj YXJzZXQwXGZuaWwgQXJpYW t5zY0ODydnLKG8WUYDMond XaposRbrg8XwsIArEVWwOO xcaWQgNTEwMDAgXFxkYiBP JoWhQqR9Kvm6FOP0JlQ5OU j5FHNOQWSoRphmSEZ8DeZ6 EOn7CMGuAI2qPJqmmAEdCA xgDicvOGtbK213EDduXTPw T5BdH8EaILpoXcBwXZgmTO KeJVIfLFkaJDLnM4IJCBXk HIW6QxSbXVIxDNi0KIfyY2 CNBEWlASEwRjH1MHCaNnE2 OSo3WVNMTy0lCLymJxQuIW r7ZWA3VUs8XxQpBLTuRtRe ZJTgHNSyXTniuDOwIZ7rvH gxHDUqLM3CIKJvBYxfMPBv EqEcO0BAA0dZKU3pJCnlwF JjaFxmczIyXHBhciANClxw IVNwRH9BGAHqKRmdVXy3kz KdIBTjVwWbEYDkQ70lo2DG m4IeBH1WOJj5ufCdqzsjxC 5eYFHljtBjZJnEmHSwcU6v daSMNXcfQNAdA1MqjvPiLJ uxLUDjvv0zuNioAOyiUxNb bGVkIHdpdGggdGhlIHBhdG zhuwPfF5S1hePhGG6xDXHZ OPExbZ6rSULlDNCvw5VjwH VbdFdyR1EvxKFbXiTrk9d8 iOH0URAcwwXiGYZykXCxLS Jbhe0eQNrpZaZoG1N8VWGb XVQnd78emCR4ryCmYxGdtV u4yEGpEIH5LE6meOauowEm p8r4cG5cKJAgf8G4JWAbh5 N7JDTxtzKtbRKuvGWoMBSx XS0oyfPoJP75MKCwSBkkBD ghCRA5RWP0GTJhcGKxp6ox iwykZz4vMKnwTF6gCSvyKO 56QAKcSXagAOObG7VeG8Q3 OGopDEHrDNHgfVQnlR4fxh NeduMtrZo4OMGfXJD7vCQl mHeeGDOrEcdquMN2XIDsXn RexiWxb8DrkSn4oCDxPKxr JFBdxV0veS1cBTCgBBTnbi SWSrnrNWSnFNyig1KhBMul cGljWHNhMzAgDQpcZXBpY0 1ud5OHr1Zvz8qiyZcpi8Zm uEHxPO4qfFCjNE6Hs2qeOP GuoFZxWUV2TTxif9kkNRhc OQH1GHDdQsKlUNBwAI0FCf AbHFasYGf7FOonAQs0JVh8 QF6ZKzMzEPMwDjl0WpN2Pf ZcFBf2LRfwWZ1PHDV4QQEf UDMsKFodGFX4KKKwKBs2TE IgXFxzcyAzIFxcZmwgXFxu C30kcVDaLDhzQxPnDZaalD xlWVQoPPP6PU3YZSBvKzAm V5ODW9hJNE6qDdjnkhDnXD WzahLYLwfuUPZdKB0ZWSWi OYieKMq8rjOrDANhCdVoKS XsW44dl6BMj9QcLO8HYUf2 gaFfibxztS2uWGEgzeApq4 IzMFxlcGljWHNiMzAgDQpT iYKnxP8fifEFDXxnLCDkS8 EauvStAZroWKZhvu9gmTky IGxhYmVsbGVkIHdpdGggdG szRHWgsZnlxaMnU7Z1luWb ZM6aYFRJVRGgaK1tMRHcDB YbPGGhEIQbyH2hJDA6j9Ma aoBqIZRKWBMjdWhvVF25cT BjZWxpYWMgZGlzZWFzZSBh jfHrvtTqv25npmHoz2CfLQ 7ogThdCJsZPHdeMbYcMW2l QAEzusWfb6ZwYC0gNEHnwG HhHWGnshbjmFIoNKl8iFGi NRHjMuKigItjn1JdTBEvPS fsAM22flWbAT4nUFfqYH0m SKoyWP9jITYwPWOtATXeRn QgaOUzPbSwxKWySqHnG98z QmFNfLUgw2XkZ9xfGA2mhT EyHiuiyPFzLIOikIpfj9Nc lLEqEXTvl0UikGEuXBjoSR 9vKZT5Ft6mnHCkBGDaxyK5 y5AvXTouVALiEpudLNFfHK unb8PmWGZxuDSCw2TrXB1H XHBhciANClxzYTMwXGVwaW DQj1AwPKYRBaqpwIstNxMk xQNuQsP5PSRrcHBhLIH9BF 5enKuzHPYuQTb7XNayJDBp C0WkB3GfKQzuHlTdVYeiEN QbIUOdGEoiUABsC9FHUGWp ALZ0KhBdYDVpKFd8WGcnV8 RVMRYfDOJpBcT1UMN7XfC4 LTz4SRDJSp0nFBjyBmCrCA OxPuP6NFg3IiCuNGNsAaJa REYpUBIfOYozgTKmYN9qvO noAOJgIIJgQCI5ZGSrqEDL q1WaCRXcVNjrJjZdYTYBMG VTLG8EJeNKFADxEwIfySPm RY4VMXNdbmAsMVtweKwgaY 2jnQYeY8qsJhPfSjrhkGzx TmVzdERvYzEgDQpcbHRycG FyXGxpbjBccmluMFxzYjMw GCLxvKJEm3QxUAWZOpJwKS NpbWVuIEMgaXMgcmVjZWl2 IAUinI0eEm8akWBjaZ5kkM FwUZysDLHcw1d6qOW1hHYn aPZ0uBLnoYxhClCeIV3liH SnSVNGUW01tZKvhjFmECYt yC7vCHHkGDPaFKP9oczyWO CUSYK2mKGkc4T9QWbdIMA3 jY9vxGgsKzUwO9P4TDZsKU Jkb11etIR6pdOlNlWjETFt zp1tcR2sDFllszWmrMeisr Tjx5Z2PTGyj6J3FTNgnlUe jBWruOWoOPQoVkI3QALwDb M8LREtWGFpcYOyBCJxIQ9v VGhlIHNwZWNpbWVuIGlzIG UznDFeybAbHRFabi54K6ut WGGwtB3wl7unDiXfQLZqZS JokKYayOX2EDOrwP2lmQ07 zmJstcHCDC7dgYEpQO9WMY NiMFxlcGljWHNiMCANClxw JFBnVIbug1KnFLkycYqyIC HgHjNmPVqLlGndTJKOM4cn iUPzFIffVKIHFCjIS8SMON 5FGVDosCWHTNU6EC2yLDch YNGdK4NlB8TcxnD9f2xwsU ckf3WxpTOwKW4vgKGuXW4B XHBhcmQgDQp9 Disclaimer (test code = [id number]) r4wvuYRlLGZnv9rwXZNzjN FuZzEwMzNcZnRuYmpcdWMx FFyptnQqTTixl5HaE9FuFi AwMFxhbnNpXGRlZmxhbmcx QTBsVCO7naSxOBFxMPdvRE GcQScgKp0jjHHiyTmnVqBk JDPaf1fvyrATSQsmDoVmK2 75APYcELpuv7rfj1UmTPDk zLVep0O0NPFTtbiroKl6oR naF08hy8C1YdejV5aaHDOa NKPpI7JoMM4jOLTvIue1ZR T2QCT7AMLkCHDuS2XjKT4s RLBvrWIyWEd7l5abuUptEM LhTSB6l8loYDaochJmFA2f tg3edZd4w6onsbBhMJWhJV XqbIMSSWUtB8HuwUafJr4d fZt8cZrdAwhnBVY5Ldp0JH 9rnc32vxd8vSwdDEUdiakr JiX7BQnqDWXjqryrTLx4GF wbJOFrdAR3JZUcqGPcW5Ne APIdVV8xhwa6ETZ9MXljYI XoKbR2BYZtcVAnRABnfRvf CJbch233TRE9FzZoSC3eN7 Bsp6K3oX4xkRHnDTCerHSq ClKxOAWfuu3jpIDgKHhui8 ZiOOM2crO1dRTweJMoBWCs HL10Wmoig9MmShoqg6IrU1 9lbRY4KQmnn0anST4eFxN7 daJwIHuza7lmaL2bKrO8SW cdHA9wCQ2vPLOerZ7zivri XHBnYnJkcmhlYWRccGdicm IxTt7vpMuuWSU3STrmY7gu nC6iXlN7QLlxS7kouL1sNK b9ZHkovAF9KPXrdC5mVO8r pgaag7rhDSoaXTjcJWTzbe J3rmL8VRPmeDOeE7FdtD1u RNTkXB9fvpzod3lzUMN0YC ooPDHgFFO2DkVjSOKej1Nl igy1QrByd8IccSLzBZlwZ0 6hx375GHOaduEpZ1rhvEHi xyqzcYFlvqsoMVjsviJ3DE VmerFkw2FqOGGnGAT9RFuk IElxvPYiZVWhfErhg6vgH3 RscGFyXHBsYWluXGYxXGZz MjBcbGFuZzEwMzNcaGljaF uwCBtpXhLlCMXtTBlxW6nv HuErP7OhZXWcWzLvyQQzV4 ggVGhpcyByZXBvcnQgbWF5 RDsbJ6q5CQQlahKmdHt5iw VpOdJoFONqGJR9OOouxTFo KVJsi3TqbnfbgQTgJj5nrR ZgIEKjvM1mYLMhROChPUbd ET8fnJi1BRLSjEAgaNGfHf MMAZJgTA24nuPnEONIkpfz c3O7PEaeVDNnx3EiuMYoM6 nrd5VaRSIub18pVI6kr3W8 d1tjFTZ9TF4ne4JyQKNioT IjaXNzSZCdf8Cywkejq9Re QBSuleWxo6NpZTQxcxPcpT PgQBWbsnLxmr5uyfObWJHs ZBGfG9MnvixfkZyzycXeMF Rtqd1vcgBhKXL3JRQKLEQu SCCsr3CogR7zqFEXVNX6cJ Cjey4vueKIhFRlQKPcdq09 GDCpFY9lU2ibDMYyYNSqlz UzbIVka9QhNMBidCO3qFIc AQ7NHaHBk22dWVRfTRZYzg RbIKVzqZkixCG7acY1wA5a IChGREEpLlx+IFRoZSBGRE YiNR7fmmYnn7WkvsElmPfw WJFilAQep9UboQRjb6NwrX wcy7VhxSTebZVwUH8wMOZr clxwYXIgVVRNQiBMYWJvcm K2c4QmXKEhHBIgGVW9uLuu hsb4FTLlzX8vQIVxD3aadn mxYPtcYFQxt8UtnY3cuFWD rHGvl8LasVUavHMWiRGuDS 4kvsEcTYfTJNxFGOD1anLj PKHib7HrGZloZ7gdP53xfL qbtXq8tUL9JUP0pT2dYym+ IFxwYXJccGFyIEFwcHJvcH KsPJMpeNezjiYkU9PvbjXn vZ6ouETvxuDdME7sYA8nP6 J8pWLgLEFiljGpe8ciIYja dmUgYmVlbiByZXZpZXdlZC Wrv3FvVBpyANL4KMmzlmHu bmNsdWRpbmcgSCZFLCBTcG EdaTMvGEZ3XAucnsXeytFc AV1hoY2ocXanlF7fuQWqlM E3gmlyDDEtZPSgaAxnAWIg XA4wkGrwsE5lHbVeFwKzYB qlPJ7jNSCtL4zgmNPxNKSo TNRoF5kkPdIbrP3gcGmqBA xjZjJcZnMyMFxwYXJccGFy XHBsYWluXGYxXGZzMjBcbG FuZzEwMzNcaGljaFxmMVxk SsHoGBNqIKugZ9ckWfEoN5 IcHFNoRgGslYVcM9kwMQef KOF5JTTpYY7rxQFtJY10wX Neb6fsOHphzZhkfj2tI59n iENzIJvkeEraFYAmw79uz6 XlCZBiqcYznt5cVYZwdmU0 iK0bVGLgqHigQCLnpGNvOX Klk9JkMKkroARfmuUyWHfr FOGaRGVzcBOvsuJ8xcBocm ZmdjZfDJYsgIenVHYrc8Ye KRNhJZcbg8Tfeb9skFTyYV LnzdHBtPgaeIRiyR8cO7Dt RWHpVLQiqa4wBLEpjG2pFI ggg9EbxfayLJTjYQHjDHGd scSsjk6aWFMjrBAUEK7TRR pimLCxg0JsjcYaX4zWFHD1 NUQwNjYwMjgxKSBleGNlcH IzFTEnnm38FLQorO7qaXpe XOZtvZ8hwB8kqVdgnD5dQb SvQyJtMRsqQR0oOLZnX3aj aUTwPOOyEPAuC3mpJrNamM 9jaFxmMVxjZjJcZnMyMFxw YXJ9fQ== Embedded Images (test code = [id number]) [facility] [id number] 19:23:05* Test Item Value Reference Range Interpretation Comme nts Case Report (test code = [id number]) Surgical Pathology ?Case: [id number] ? Authorizing Provider: ?Dominic Keita MD ? [...] HPylori ? Final Diagnosis (test code = [id number]) [id number] FuZzEwMzNcZnRuYmpcdWMx NAchbqSvTCkxrNtuDMU7LQ LkXQ9vbQqynSp2aKbrJRZf diG8lBHiBDiam7unLZP3s1 avjiauKRVsNLahRv1yqGSd kCaoQkQrBHItPRp7mP69IS PktS9dyUTeNGw3ZCWdgLPj dvBdXiNtIRPatQAonTU5GF RnUM7wzvlwPMkwMLfvHOEm nkC7IWVzePOiP7TsOJAhYL 7uvmajEUO8UCxdTWMbIKP1 MkDjXODhx7Jglij6TyTffU FyZFxwbGFpblxmczIwXHBh uxPPVuAYFZ3RHLNIDAWSZ2 tGWFFTVW9RVYLBJwgalNAr UINgBAFyLDEZTQ1VNWPzO9 oLLhQrOE0TCUZaOGUyuCWm EVRxlnAYBgOJQQ6GHM2BGL wgQklPUFNZOlxwYXIgICAg KCYrDDiAW3UTRQGzYTXPB1 JZGVzFHCqrLi0mOCBSEJ5D K0lGI8POVIWGGH4FHQqhHN NmNDWnPUUuQD8XJGymXDTF KK3DDNZOZSFQDThUUXLUPB QRGLoXPVRKH5BNWDqNRMDh tcntKKViHi6hM1JUHOSPCP wgQklPUFNZOlxwYXIgICAg BORxIXHFV8EJDdYRVY5UO2 7JTNBUCKQGNV4WGDAPKAeJ XF1SYWOXZEJABSRPQ2AipR FyICAgICAgLSBOTyBFVklE KW7ELCSUDlXBFXwCCLRmNR lTRUFTRVxwYXIgICAgICAt XQ8NSVxcHBHAJJ2BCNNJBj dBTklTTVMgSURFTlRJRklF OIPAWDNWXQ7MBy5YMKUFRk xwYXJccGFyfXtccnRmMVxz r9UrL9DzKbXzUJfdldPpBD UtGutztsrlSBCgXZJ5ibHn YUEpHLjbZUXkNIkbNz7whX UvaDakNwXyWKAuj3gmmeGP UYagIhWiG460TZNjZBzlc1 cuk6UzMZIahFNjh3F9OXOD yrghsSk1k0egTbKkBtC8pU AwBAjnW3txkrWivQGjQ2Iy nONpaCz7wZobH39hs8E7Xw haM0koPTCiQGFyL1CwJG4l DQGnRhe2QVM7AZB8VQNfHT JfM1HqMH2jWRPubPEdFKu4 c5utcAioNAPfTZY0o4sbLV kxlbI7VF7etu1rvPt7o2ql czEgRGVmYXVsdCBQYXJhZ3 NrjYznRw0yvGn1wZdpSpwe RGE7Wee7JG9yru26xsy2vP nmXPYhztwrToH8HWnjPJQq xpreQSo4DKrxUGPlfFE7UB MzkLYfP7UhRFYxUV4xzmt9 ZHV7YUirGVRhTsO8STCbbM EiTOXbmByhIBngt789CPN6 XrLuEU9qI6Lkn3G7gQ5gmL NdPLXxbOPkLeXfMAZndm1t jFRhNGnxb9QzRZB9pdJ0vG QegNVqQVCqMS34Befzd2Ky PhmxJAT0YBFakkPid1Prt1 ldFtRwvhNjR3xtY9VkBYEn QTPdKEAnOvBestQzi9Syw6 XcxMIgiOy4u5hdDGRxNQBw hVetz2qoQQD6VXMoR6O7qG Wvt6ldBSrwRYIegKR0osP6 MULxlREzC8GqfT3eCEIoGN 0otwc9a4shCDJ5SKfaJKLq ShA2upO9ZHDqdCTmZIHiwS miLSzrt640MNM8AgCkYYHc o7IdI5WtlAblM11zeFuvP9 7fXKDtyHflqB0vyFrjjE6f ZjBcZnMyNFxxbFxwbGFpbl xmMVxmczIwXGxhbmcxMDMz RAiiC2duWpEsUZRidHeyQF xin5UhQKSyGIRcNmkwizGl XHBhciBJIGhhdmUgcGVyc2 9uYWxseSByZXZpZXdlZCBh cFfpn7GpP4caUJ3yJ0TugL NyyoAvnnOnWJiiYMXgl1t4 fDHweEmlp2DvrLTvHG50mm DrBVNoIWT5UYBki4gmHA55 grtaExJrvT99wnChnmQrGZ Mbg8qfY8vziKMpf5Coc5Jd btNmZAatk6XrTM0ogJFnos yweMZ3PDZrhATymbLbubH4 uIlrXLZayG9mwP0sdIxugI 4cHmSyReOoRLybHC0fYZGf Q3ajmRZyHSSrOKPjA6jxAw UvvC9trSsyZthuerS1IKNm cn19 Clinical Information (test code = [id number]) Shivani Schuler is a 47 year old female with IDA1. Gastric polyp x 6 r/o adenoma2.Duodenal Bx, r/o Celiac disease 3. Gastric Bx r/o HPylori Gross Description (test code = [id number]) c3hjaRCaJIUwcOMMQXH0YQ WgWC0zoUgpvQo1bTzcKQUc pwH6fZOkOYnur3beBVT4g4 aigyNDIbvnDQTnJB0aAVar KAMlFL0bMbFfNPZtNyJrCT BhcGVydzEyMjQwXHBhcGVy qCZ6AUTjHH4fbxgeLOlrVY tkAETiiiT1RXFulNPoA3Ji BJHtIF1fmwfwVPE4INDCUe trMp4kvKMebHdtPqReWoDh YXJzZXQwXGZuaWwgQXJpYW o7pL3KSkcaPHF2SXUGTecg IeplrMjcl5MppRFpSAEeFB xcaWQgNTEwMDAgXFxkYiBP VhWoQmO0Bjs4MBA2YsR7MH y3PHRYKNJoIwwiFPD5QfO1 ESe4NPBfKY2rVNhrmTTsOP vhFddbDViaI850VBccLLUh L7RsM9YjXHehNrWhHNqbAM FiOFPyJYseCUErD3AQJGDa MIM4BiQcRPYuQGl9TBdzT8 MNCUMeWPChAzL5QZPqPjB6 HRg7ECXRRe9uGOokTiLwWD i7VKQ0GHe1MoAtAWGvWtXj WIUrIFVzVXjfkTIpGZ5toU tuVATpOB8EOSDcIFnyKKRu YmXqK8ZYM7hFLH5zDImeuL JjaFxmczIyXHBhciANClxw VDGnWJ0DDUUbKFzfARg5ld HjDHQlNqKyJFCbA70qc3TB c1RkLB3DLMy1qrLbeglolL 4aBYYyvkQkQInVgEAyuK6l vkNBPGvwGYLqR1PzhxFmHR zgSVBqxk2akPljZGgvTkHs bGVkIHdpdGggdGhlIHBhdG gltrXaR1U3gtWoXJ4lUCSO LXDtkF2rZADsWDKli8TzzA QugJumL4HlbHEuLlTny5j2 hOS8DKFkcaNeJZWlcZHeKZ Etil7tZGsfVjBbC9L6KCGb HVNea17ggDI9fqBtWwFrqX j4zYSpRTI5UQ8hnDhcbeGh a8z8pK2hAAEgm2B9NBLhh3 V3XFFngqMtiCXnaYKgTEQl KN9qfgMkHT11IJZzIIwqOX qtSIL0GLN3SBOphIOtj6ik qjznAf1qNOtuNR8rLHanHF 20KQTwKWjxNJGmB8UkV2N0 GQazGNTrQAIyrMBwmH9niv WptsPqkBw6MCMjBVW6iKUq zDooNQXaSwgsoUJ9CQXmSp IgrhBiz4JsyAf7yTAqZUsp BFHpeC4waI7fLBDaNIXqdi XMSpcvSJUqOJeam6LzTQsa cGljWHNhMzAgDQpcZXBpY0 5tq0BDq0Qfh2xywRwmx6Tq mGRuDG2dtTXvML1Eg0tuUB JumFAsZRL5WZazf1gsIHda VUM8KZWuWxAtMHNdLB2LCd CvKIteYZh3SJzqWHj6ZLt9 NN7WBjQtHPGdMjm6WrU5Sc XiKJi9PDpqJQ9LDWM0SJBa JOUiZTmiYJK8PKUcLZf9KC IgXFxzcyAzIFxcZmwgXFxu F43nzYImNXirFiLeCVkxfL baMRMcVGE6QH4DQDXrLhDa H4FBK1tSWC8mTdoqoeHtQL HlopDWGbvyNBDhWF8LDEAp KVmsCYa6jgYnHXRtPuTaWY QjO07bh2DXb5RwJE0YEMy7 nyQquwpjwQ7sBZLmafLdb1 IzMFxlcGljWHNiMzAgDQpT mFGreN9fanOLJHwvHUQkV9 LbtbCjEWwuPOHcdb7efWkw IGxhYmVsbGVkIHdpdGggdG rdXHVgvJceieHvP2M6kmAd QU1bEISKOBLudR4zQWRfBX PbREDjHVJtdA4jDVT3x9Ef bcQuTCUJQDFseMnzMF93lG BjZWxpYWMgZGlzZWFzZSBh orCjwvNsc30vhpAjt1MuWG 4ocWymGIxCKPrhXqTgMF7e QMDtsyVzr7YrDB4tNJYpzC XyFAXwddjurNSiKRc5aYZj HOVyOiDylQxze8TdMIQfJA fbOX18wpJgAY5rHBwcQE4j KQinYP3tNJXuCUIaUKLcYl IhyZPvHpMobXEpXpGvT15q QoIRrFZvj1ZrH3dvBK9giM OnOgafoVHiVEIgnNpkh7Wi vQVxPMLia6PruYQeYTdkXO 6mAOM4Si7bsIHmGVDgixV4 x6CqLKeaUZPpMcheWRCiMX wsh5CmJYUipEIKp1IqPE5A XHBhciANClxzYTMwXGVwaW EMg0OoXOIEPdtudRvcEcQf nFChBzW2LQOwzWZbDAS9JK 4haTweQOKwKVa4KJbxLYRh E0KcC1AwFTbdEfOySPvfZK NsABQaOYtxBQOeP9RNKYYt YKL4RgPeHSAnBMy4VAxdA2 YJFVXuCZQdSzX3DLB5QwT5 IQi1IVKWZn9gGYfxGrQoQQ HiAwJ7JSk5DvXsBVGrZtVm IHQxGYKfMXlnnUAnVR2udA oiOOYjZJAmNPX2RXUubKGS g8BnXNHhPVbpDeJpNVWTOX ZTCC3ZJvAOFGUfBzWxzWQd ML1ZEZKgphEwKCbwvNnmtA 8uqFJaQ7tsAdZgBftdbYov TmVzdERvYzEgDQpcbHRycG FyXGxpbjBccmluMFxzYjMw WBNlzRLZt2CjKPIYUzOkVE NpbWVuIEMgaXMgcmVjZWl2 KCHkhZ6aJh5zgJApnF2swU ZjUSgzPOXpb5u4rNI0yMBd nIH1zOSlfQqlYwWqIC8ytL SvVDGIDZ94aQPmvrIkYAZd lN1pOVWmSCDcSAG5yhnkHB BVEOR3qOXff6A5CSsqFVU1 bI2ytZdnXgCvU2B3VDRrAC Nkr54ctTJ0qoVcQaDbBDFk pv7dqW4mTZxsaqOvmDrzhn Mbj3C5OZRpw1P1UDBxumIk xGCkkMXyIEDoChL6WWMwSg I6XEPxVGEgnOMdJNHwIO5a VGhlIHNwZWNpbWVuIGlzIG IipRZwhoLgJKUgvo85N6ns CGMwtO4kl8zfTeBhRTKvMP HalAKfmXB1MYGfvZ0xsO27 fgRwszBXMM8epRJeUJ4BVB NiMFxlcGljWHNiMCANClxw MAMcDYyou2PqZUwrkEcyAJ BcXrUcGYtCoSylZVMNW5fc gLQbRNgiBGHIBCdLI3YXHD 6BMURjdZHZRLR3WC5sZGmr NVOyU4VfZ9ErcsS4x2pwiK mwb9EuaBFfSH8qpGGoWB8N XHBhcmQgDQp9 Disclaimer (test code = [id number]) s5lldAZbMXLfa8arKWUxeH FuZzEwMzNcZnRuYmpcdWMx XUdgnhUdUXbtt5OwN4TeZd AwMFxhbnNpXGRlZmxhbmcx QTSwRVD0puRaGWOkDMrfAB BxCExyVs6qtYPetHphOpEq IGFfp3dzjqLXKVjrXsVgY3 24XBFcTJzok4fvf0MdXRBc mEEwe5U2AZOGekykmTf6gA ttM46we2E0KsdnO0wiWOAg RXPjJ8WrMB9lSTNbUnx3UX O1VZD6ZGBoRCGeW5MaDE4e RXBwnFTcAEr0b7aofRuoAU CrNWK4x8ffIJpscyTnYF0y wh3emRa3a9qgvqVnCBEdTH BpqHQELVMhV3JxzBdiSd7x kAp7uQvcOjicTKH6Rcs7UJ 7zkw87pmz1wIafLQCaceqv FoH8AIynOUWatmrvPNi6HE qjVSPeyPP2GKEdcMAoR6Rl NNWzUI6ynkv7WTB4MSshAN UjCyS5HCKyvRMuHTIimZmo WUkyb791ZPS4WwBtAH8nP2 Vjz3X9iQ7jeQJuWUQtkTKr AdCdFATakm5arLTdABfnr6 LoDVU4gmB3iRPhdNScROBz ZK02Tmttl0JaQzvox3FvZ7 1riEU2AIerm7yjKC2bWjA3 uiBeDLkrs5hipZ5jSvT8SO woZC4mHU0hNALbdO0ybwfj XHBnYnJkcmhlYWRccGdicm DrYy1gkZvuNLG5QEfwY8vw wZ3fIuO6RDhhL5xsiT2wDU c1SEjgdXF6RJIssG1aJP9n uuzsb4jaNZpdVFhwKSRhte T0egE8CTDgaSVpC1XssX4y DQSaTS4njlmds5zqZTI3HQ xoFFHzOXC5XcAiJNYrw5Cv omg0YeHld5ZzrMTeTEjpL2 6xr384EVBtdyDqR3etlYEt ynogaRAdctpzKZymlsA2BP MvhbChz9ReHKUlCWF5AScy BWwjkBSeASQcaIegz4mwM0 RscGFyXHBsYWluXGYxXGZz MjBcbGFuZzEwMzNcaGljaF shWBcqQaZcTPVkSZwjD2zc HvNpW8IzCOSyPxVnfDNmT4 ggVGhpcyByZXBvcnQgbWF5 YOzbL6d1AZVvxpNhdEp0wi UgUlEaXXJtYZV9HDkyiUGk VBEds0PgwmthlLRoJy5opO PeDANtzQ6lXWWlSHIdYRoj HS7ccWt6IIFVeWOcfPCdNz JDSNOyNG12tyYtIDZYblom q1V3GYitUCSde7FdyBAjN9 jmt8WyPUYdb22pPR7fw2W0 a1lgRPL3SE4ct3DgGFAgfH UkpOCtNNEcn4Uipdwaf5Uu GMAxnoEiu7EqJOAudwMreB AdKZMnwaPqpp4knuZgKIAh ZZVxS2KlngagiNmzwbSdJC Biuc3dppGeFCT3MSMGLKEn EPDem4XomE8bkCJPMQZ9nG Jyyv0megVQaWXzEBTmxg60 VMUxNI3yN6bqDYWkNCXugb SefYIab9AmZYJbrBF8mODc EF7YJqWNu38lMUXnFXXVqz ZtVVZtbLgrzDL5dlT8lH4l IChGREEpLlx+IFRoZSBGRE PpJT6ugwPys6QqsaSxaYvf PQZwdYYly5XoiVLkq0QrrH kcq8DfkLBdzHKrPY2zFEEq clxwYXIgVVRNQiBMYWJvcm H4h4EiINFnJMXtZVY9qQwb mha3KBYfvL4sFFSzD4zynx xjLBsvHWZxl9DucO2imAGI eEHbv9EikFNdnYRLfNMeCP 0xclEnIIxWZVlRRFH2joFq PHWbs4EmYDasI8euT51zzU gyxGz0uXA7YLN6zZ4bMrx+ IFxwYXJccGFyIEFwcHJvcH SiBSYxsRyofbVvX7ThzdWa zS9orDXxrqVcDG3gPL8hZ1 I4bXJhTMAlcnLho3asFXfu dmUgYmVlbiByZXZpZXdlZC Ohq7XzYHmzYBB4IVkakzBz bmNsdWRpbmcgSCZFLCBTcG XahNCdDZS3EEhpabKohwDn PP2zlR7gdYrxfJ1klPYauH K7hddsAGZhSPEiuYnwPIQs RR9xuYlznB5mRjHfIyQbNK zgDQ4sRFGcQ4wjpCQnUKCa RKIdD9aaDqGfeG7ciUctNZ xjZjJcZnMyMFxwYXJccGFy XHBsYWluXGYxXGZzMjBcbG FuZzEwMzNcaGljaFxmMVxk VgRlJPIjJVzcC2usNnPbS8 ZxTGPgTmOjrIOzW9tgGAxh INV1XVIiRE5ygWHqCB02gB Fju9jnBKmbsIniye4qP52n yUZpLMjyoJapMDCsw85pb9 DiPIAqayJwfg4qXJRdrmS5 oY0yESAlsSxwIMCbyRJdSC Yqk4HfOGmogXYkciSfWHfm RXCyXLWxfNEaykT4okLgjb GtpcFvOVVpqFxiBNChv0Ca ODWqVNxry9Sjlx8nyAZqZI GxenKUwTgeuOGamV8cC6Er GFFtVEYalg8dMZEvsP8sXP bpk5RtqdraMEQnNVJcYMKz xvEfms9bFZKwtHJKYX0CRO cuxNZpk5SlufWjM3jGNDY9 NUQwNjYwMjgxKSBleGNlcH JzRVNiaa31FTPhiE2rwNhm MUOuiC3okJ7nvMmyxX0hTx PnDoWyXAwiFI0gVCCzE2zy zVOkFMVsPQGjX2nsAxAraA 9jaFxmMVxjZjJcZnMyMFxw YXJ9fQ== Embedded Images (test code = [id number]) [facility] [id number] 19:23:05* Test Item Value Reference Range Interpretation Comme nts Case Report (test code = [id number]) Surgical Pathology ?Case: [id number] ? Authorizing Provider: ?Dominic Keita MD ? [...] HPylori ? Final Diagnosis (test code = [id number]) j8xjgFFkBNLwm5tuXMPusK FuZzEwMzNcZnRuYmpcdWMx HCzaftEuEAdslTqcIUQ0YD CyND4tpVubuWv7aDmsXUGe bxB4yWGbBOuiw7ruBRI6j2 ykdfvzHDVdREecJn5bkOGk tWigBoNfKOXdDAk0pC98AD CrxR5emBGaSDu8AZUoiTVf khIcWuTkMEFxaQLttNQ2LO WjXX3qsljiWMkwUTilPOTg daU6IAYynXIuR7FdGMXvKB 0sadegIOV1XLiuFPLjEUK1 GvRuKUUqo4Bkxfe7FnSvuI FyZFxwbGFpblxmczIwXHBh ejFOWsRRAL3JMYFTEBSYI0 eTNYHDQG8ILRHOTirixNFf GQOvBLJxNSBWWX3UMXLxP7 mSEpSvZY4ZTJBuEVGfxWPt LUOkmhEYIgWYFS6JLY2BCG wgQklPUFNZOlxwYXIgICAg QLJhGAxMY2RDEEUfMBFFZ3 VPHGsBLTfeEa8oHHVKUX0J M9aYA3EMMYZUED2VNRltYF TpHPCkNDMdAG3EZXzoNNKC XX6INYEEJPSWFGaPTKTNZG XHARcLHILWH2CDCOyJLOSe bbxmRTBsFk4cD6FEJQKPDD wgQklPUFNZOlxwYXIgICAg FRKiLFBDA7WDNoOYTP7TV4 3GXAMSVCAKRX4UIODQRDtB CY3XVOFCBDVRGFNHQ0DmsY FyICAgICAgLSBOTyBFVklE ZK0XJXNEHaOIYLtYEHIuRK lTRUFTRVxwYXIgICAgICAt DS7KHVxcKOOBIH6HCJHNZw dBTklTTVMgSURFTlRJRklF MBFNNHPDVE8MRd6OKZEVBo xwYXJccGFyfXtccnRmMVxz t6ExE6QuSnAbGWrxjmQuIP LdJbvwclcuEWUjLQJ0ecLr WTGySGlqVYBwYYnnZq5woS SdnCgyWqEoFLJdn1otxwMI LHotJgGiE313BEReXAawu9 eug3ZaMQQakCIes3E8CUUL tnwmpCt1n0cbHnPfLhQ3nU RwRCdsR5wdbjBfsEMzI8Ju hMWcdXr3oKixW49xq2O4Wr hyQ1riGZGdYTDrW9OxJB3s VAAgWhg5YKC5JVA6FOMlYN CqV2StHG2zSDUukOStDYz6 f8hetZbsBPNuPJG0w6qvVM jitcE0GR4lij4guHo0v7iq czEgRGVmYXVsdCBQYXJhZ3 KgcPkhHj1trAy6gHbwRfpi AAT0Uuk8BB1gkg11hqp6tT dfJRAtqbxbCeN5QVanXFJo ljxiUGx0IRhjNYCszHR5JG RyuNViK0BnTSSvJJ2gbjh5 PZY2QZecMTLbFzX6BDDcuF KoHGIveZapCJxne772GFM5 AmAcCF9rK0Cps7M5pI4xiQ VhYMEzvINfZhCcJEIyzc3h hLJxSVvxd8EpKAH8hnS0iC CinVUeVJWnWG66Ltpbb0Cm AmbrWLF4WJZfllQak6Hjm6 seGtYqfpZjX2mrA7HgVFDh OZFzTEXmOpIaonGax7Igc4 NxbYAqpMz2u7ccGNPcOEHw oUkfw5ifSID6OXSrU5D5cM Abz8hoDRrbVRAuuSU0mbQ6 SRGxsHRxC8HrmO2yYGLuGV 8hubr1t4gwHUE5RNpoKAXz CdS9tiC6HBRdsJWzUUKdvC kfESwkn620LUT1JcXhAQPq i5BpC4YtrVdcG27dwQfrV6 6iZEShrKluwF7pjFrkuC4o ZjBcZnMyNFxxbFxwbGFpbl xmMVxmczIwXGxhbmcxMDMz ZYmoM7wlPqSyJRZaqRirDF nlp7XfCYVaNCJxPzmqesEv XHBhciBJIGhhdmUgcGVyc2 9uYWxseSByZXZpZXdlZCBh iWnwu9IiD7xqGE7pY1GgdG HaxdIgkdYdLVqiXIAfn9w3 eTFrdKqnl5NgvZNoSR01jj VcVXXuAIX5PNSen5zxXK07 apziZbWswU49umOrsfTyUQ Ivz1zaY7qmwNAvt6Fca7Ls gmYpAGwas8LdPJ5wpHRcxd enbOY3TQVteVNbftAvnsU3 aLktUSTqbL5pwV2lgKvilP 9jSuLjXhUcZEokSS5bDOJk D2vfkICwSMOnWISbB9jiAc CtjM4dkSqaDqiibsV9YDKm cn19 Clinical Information (test code = [id number]) Shivani Schuler is a 47 year old female with IDA1. Gastric polyp x 6 r/o adenoma2.Duodenal Bx, r/o Celiac disease 3. Gastric Bx r/o HPylori Gross Description (test code = [id number]) s8hudPNsTDHvmROEWTB9QZ NmLQ9xoIuebIk3cXvrOQJi zkK6pSDwFFrfm7mzKYW1w5 pambIXYvfkUNTqXD7rCQpp SDOgWP8wSnQoJNPkExLnQC BhcGVydzEyMjQwXHBhcGVy bJS3VZKyLL3mfzjvFXetCS icRZFtgqJ6POFxiNYwA0Oc IBDvVT7uvhfkJKC5NBMHNd tmIy5xaYQbiUkzZxWoNaMp YXJzZXQwXGZuaWwgQXJpYW g1sK8IRvrfSRN8WEEAHeyn ShwdqNcea4CvkDAoOIXnAS xcaWQgNTEwMDAgXFxkYiBP LlVwJwM9Hkk3PWJ1DhT8GA s2ADKIVTQaPhvrADI4JqF9 ZTz4FLLuUI3jLWvljNMcVH rwPjfpTMaaW345SUbjZSIf J4ZlE9QyFDwcRwBsPGjsCG HjEQVdNWjxLHEvH6UTWBAt HOI0QjEsTTMoHKl9TBlcC6 MTIRZoTBHuRcT2AHSdVaG7 NYb4VDRDFl9aGOixUsWzUW c1VJI9DGb6EwAzQPWpCpAg AYNiVPBjVDswaSNcFG2ymJ upCSFrHX6DCJWkUJfaGGHc HeOkF9CNT1vZWV7pDGxmqI JjaFxmczIyXHBhciANClxw KKDmAO0BVDGhAQnyTCg4du PpQURxAiDcORTqR12bx7HO f4TjUR3LQFw5shPwekozuM 4sMYGdsjYeJFsZeUUbhS5z wkOGITjgWWYuE7BtjpUvGH hoYNQctk8nbPvrLAskErHa bGVkIHdpdGggdGhlIHBhdG mjgoYbS3Q0ykZoPS1oWEAX GEZnaH6hKSRnGOZqr5OdfU QvsZwlI7DafEEtHlYhj2d4 zHN8GYVzptWxYDBxnDLjUP Tgid0xOVzgJeExR8O0VNMl IGAtk18kqSD0drDcShCdvQ b5kMBlEIF5SK5kgGafmoJn d4f3uV1iWMLdx0T3ONRps7 C6XKYyovMlvZJeiQMfWJUz WJ2tebTtKN41TYBpBXipND dxSUF9BOQ7TMGhxCXaj4bx rjwsFf0zZDsiSO4lLBbyJN 74BWEqJMswFNTzZ6VyT6D5 NFurNWExVTCagAFmtM0urm BslrLbiXe2BSMzANH9sQNq iJvnYGRwOidpzVO6FKWjHg QgmrFej4ZipRf3cHWzSFkv UQItiJ0ttK9kCKBfUWNmpm HVRjyuCCYzWMsvv8PjZHlb cGljWHNhMzAgDQpcZXBpY0 6sw4DFn4Bad4jonMohs4Dt xGVePO5ygYYvBC6Tp5sdRP VpaJWtTTG5EGmgw7ecEIto HEA6LWAwKgDgMBUdBT1SRb NtYNuqCHb0DKssAUa6BVj1 YC4FRxVrTXXyMea3PwG9Uh QaFAf3VRgyYE7RDJT2FXEs DLFpBKnxZJH2EXAoXLr3CB IgXFxzcyAzIFxcZmwgXFxu A26yxZCzQLqsEgNbBFgotF wmZZEgTJC8VO0TCQXuZcHf M8UVJ7kGOW6tXokozoJkJX AjanZPMxjyGVJmJQ2QVKNy IXxdNAt6tmUjXPOiPkBrRT FsK18um9PNq3YlGD4LRVo0 pdCfiyzvkY6sNIUbbaWie8 IzMFxlcGljWHNiMzAgDQpT wEHksY7msjSVANqcEHNtS3 QxfoJfGRepEJVtvv0hcSca IGxhYmVsbGVkIHdpdGggdG uqTMIxzGjhgsXyN4H0kqQk EQ0fDHRUINPemH6nUCEdRQ FdLUYoSQPvcK5hYRV8s8Fe xpDyOPGZGAFgpFjeJZ45cF BjZWxpYWMgZGlzZWFzZSBh eeGlkwHpa61zvlBgq1UrGX 4zaTdaRVoVVUtdGlIpES4t CJBeieEwm7ImJY7hDBRmcL ZjIVUuqtvyoPCyTVn1xSNd BQPeMtXwpOzdd7InHMBhOM nbHH06hzZnHT8jQWezDN9m KBguER2eRUCnHLEzEIAlWa BtsYBaXiAhlOMvGkNqK37n XuZVzCRbx2XzU6mxEQ7zpI VuFykchTZtXUKmjTgnz3Pg aFTkZPUne9AurLPmCAttAF 0pTEH2Tm2iwOKhZRRfywY3 t9JhBIudAPZtUjpeJUIzZP nye6YcLYTyoXSBb3ApPF1Z XHBhciANClxzYTMwXGVwaW JLu5KvRYCIJmrzcCpwCgKc yBGpNhK9GQVvgIQlXDX3YQ 6niOtkXAYjRLi2QBuyDNXl K3FbG0AwNZlyTdSbFPlqRB HuLJMsPLayIIApA5DEAUAn GSE1XtCaAZZzHBk9MUdgG4 WTXKFmZDDaXfP6HEG3KwK9 LQg4AMUXWd6dIUriTcCaXJ OxLyI5LIk5NbVrEPAbGmVs VGMkFHWgPCkjjMMeRN1rvH joFANiXHMpYPU8LXGtlVWP v9HiUXVoHGilSxUzCLWZAW FGIK4PBzEIMOStYeWanENb DX1DIUKsklCfEQibxJqjqE 7mjPIaF8pmWpEhQzmhyChy TmVzdERvYzEgDQpcbHRycG FyXGxpbjBccmluMFxzYjMw IABcnEQPg8ObOMIWEbCiTD NpbWVuIEMgaXMgcmVjZWl2 PRXenB2bDq3zlUDdkM0haZ OgGDizUXMcr4e3pCU3nPBk uFA2eZFxaPkmFlBnIK7agV MgTMTVDN42yMMbrwAcHLAl gG1mVCTeDGGtFSJ7uvgwXD EHSDD8pTTpl6C5HGvxDME7 jQ4mhEzwRzWlV7E9ASQuHZ Pmy06jbQW9fsZiPmNqAALy no0lcY6uMKopjsTlpXlizz Ofx5N7YQSxe9K2OIBhxyDt uDXusEEyYRQxCcQ7FTMxEj A7KUVdXOXhoOOhGFXgTX1u VGhlIHNwZWNpbWVuIGlzIG BfoLIjhuPqCCXujk37P1pg HJFyaW7wm1dkOaWcGTTwTE PekXYxlRN1KNObxK8cgK02 aoCvvqQKQQ2djPJfZQ2UXT NiMFxlcGljWHNiMCANClxw KXRhTSbva6JrDBbcmInlPH MgFtWuYZdJvRhvNWXTP3jv zPZuSHptBXLQSBvDN5PPLR 7NTUZwjUPZOAE0UT3aEWne BINlH8MnK3AgxaX1o2qmeL sey3OyrVAxDV9svQBnXL6A XHBhcmQgDQp9 Disclaimer (test code = [id number]) j0gqwJQpGOAba3otJCSayN FuZzEwMzNcZnRuYmpcdWMx PBjuogPmBPrcl4GkO2MbWv AwMFxhbnNpXGRlZmxhbmcx WXHdOQD1dfQpIRNjDUloPU ZxRYqnMz3khLByzLlnLjFi SNMmk7tnphEKKVqoCvBcJ7 97IXLtWRkzn3jzl7NaCMCm iFCfa1K0LKTRykvceNa9tW ytI60sb3A8NchiN4cdNMOf YIFcW0HpIV9sREQgHeq2KJ R7LQL9NUBfZNNcI7ImUG1w HGJtxBFfWPo9y3rzoRglUZ PhGOM8r7ooQMuwnbEtET8m en5kcUy0b8ovfmJeEBEsLD MwdUQFBZJsS1GblMefTz6r qWj4cBohIsutSFS5Aqr7JR 2rop12vvr2fNzgAQWbgueb XoZ8XRiaBNOpauwjREu2NZ deJJTqpXG8AFTkxFHwZ2Gc ZBFiKE6sstw3SYF1CBjlNB IiBnS4NITbdLRuYVVguEfd RAtqr824RYH3SwFfSN0aI2 Tbx3V7yA3vnJPuVNNsbOCa LlFtYESykq8mzOJqQRjfr2 NsMJE9qxI0eRTvyJGfRTCx HE90Mdybk9GnXoail4DfG0 7tcGW6RJqba6gcNA0vZgN9 uyIcRSvww8nnoG8iKiH8BB jnSE4tZQ2qTAXtmO7wimrd XHBnYnJkcmhlYWRccGdicm AxXm0htHjcSQL4DAaoB1io wJ0rSeU3UOglP7eeyC8fXK d6LHovtZT2IMNafO0lZI0e kbtjw0hjZZaqRAxwVJTvjt R4nzV3JIAtpTBqN6PhgZ3z TYCrEC6zcteso9oqFLT9FT vvOOMhSFC7JnAsHVYex5Qp dnp3UeHyl3HhjSUtIUdiF0 5ju128BYEitzOsH4fmtPAo ljcaoTSnkwbaRZqvtnO2IB JpzwKgv0EzFBDyOPL7FCqn PNueqRDdVBNbkUwzk1giX8 RscGFyXHBsYWluXGYxXGZz MjBcbGFuZzEwMzNcaGljaF gnSQnwNsEzRMOmEUfvU3kk BrZzP9DlJGDhCwNuwQNcC4 ggVGhpcyByZXBvcnQgbWF5 HRvwT1q8FQHmxsHgoCw3py PtLnUnNBEqXVV7MIuovXVd SSFpt0TnqxkciITmRv5vxH McDYHuhV7bCVWbWJIcYBrv QJ7rqPq8MVIUvRKpnXFcGr WUDHHmAR23ilLuUWMOgytf o7S5GNbyZDGwe5ZjmTDtB0 rda1MkTMWpv63oKU8hm8T7 h3bqIQY8PF6fu1WfUIFnrV GwgLUiIOFjq8Veqdegp1Sn IKIjfvLil2UhSEPhmsGmcN BfLGWrgzBaxw5nwbTpESVf JREfJ0GmrvpavCxrpbUzAT Muid5nyjVeQTQ2WRSBSJPk MHMks1EsxZ1omHEGLCR1bI Yxjb3cbdIEfMPyTWSveq03 VWGdFS1hR3xiVXAnFGUcjz UmsEKew6VuOPGswJI8tMFn DX3GDwQQe94oGNIxMRVCwy NmWVJucEuxsQN3rfF6zG0v IChGREEpLlx+IFRoZSBGRE LrPX8aouSot8OzdoOevIpx TKXolXQdc0CliHAor2HbhM vxn8WpfGUsyOQzDA4jFFVz clxwYXIgVVRNQiBMYWJvcm N3q2BaMYTmWDKaAXB1sQwu xgy1ZJAzbI8iXJZhI9hewz jpTLmiHPVek5YyqK8juPVX pNMdq6ZkeMIkbGWEsOUoUX 6fboOpDZpYDIyYYDG1pcQo XNBtu1KnNEogV4zcR20yyT luaMz2wVJ8ZLE6nA4zMlp+ IFxwYXJccGFyIEFwcHJvcH OrXWJdjXvvpdKkZ2EhxuRc oC6diHKnkzIfOP7lRS7bP0 I4aFTaFQNuwkSsd1fwXXnh dmUgYmVlbiByZXZpZXdlZC Bup7MdRHtzGQU9ITvoixZm bmNsdWRpbmcgSCZFLCBTcG DvdUTjFLK6ZLzxclGogxVr TS7joQ6qoSmacF0etTMggJ O6emnfHBLeKBKlvNvzDBSo ZP7otDitaH3yVqSeByJqJK uhFJ4eWWPiV1fxsVOfVLTd IVLwX0paCcCaeV8piYaxDL xjZjJcZnMyMFxwYXJccGFy XHBsYWluXGYxXGZzMjBcbG FuZzEwMzNcaGljaFxmMVxk YqXlEZRbQHvyV9puGzHjM6 PoJIRpXcFizDJsC3oyTPdy TWX5RAPtWV9kzKOcER53dT Ncu2qmGKysdOfamh8mJ52p ySRnKLlcmGhvOMIxa46fs6 GaBIGgamSmmf9xLPYzjyT9 aR5dQRJieAkqQXSyhUFyIK Ixh4KfCCqwjBWrfvQvZGfd CMLzHMJwhKJltlZ1bkInkk JbevJeVJOgqAijZTKrd3Iv QPDiSDusj8Djti7miVAiVL FgcgGVkXkwhRZnzY1lP7It GEPgXJLowd3rQQDvzT6lQR wzy5UtacemKNXwZJIlKMJf roZfkq9dMHPoeGULMB2JCE cnuLQts6EapyZzI3iYBUB9 NUQwNjYwMjgxKSBleGNlcH WrPPLbqt54RETigO3uzMyf YGIwxX5dgU7ssMnsrX7mRe WmJsQiNPcmIT2lBOHyH5ih bTNqBUQmMYXsB2reVzAcfK 9jaFxmMVxjZjJcZnMyMFxw YXJ9fQ== Embedded Images (test code = [id number]) [facility] [id number] 19:23:05* Test Item Value Reference Range Interpretation Comme nts Case Report (test code = [id number]) Surgical Pathology ?Case: [id number] ? Authorizing Provider: ?Dominic Keita MD ? [...] HPylori ? Final Diagnosis (test code = [id number]) [id number] FuZzEwMzNcZnRuYmpcdWMx DCvrntVeAElnpAefFTJ5ZT EfGJ4uxLxcyLa1uBhdZVFg fqU9eTTfSPpbk1uxSCZ4v9 cfmsqkXNDyWVzmZx6miCHq oFaiQvZzLBPoUJz9kP80JW XoiO0ahYDtSFw1DNKfkUWp ewIbTqHhNPWnjWKkdZI9DL VaJY8emhriMEvlQKnhUBBf rrK2VAZwsMFnY9XzMCPrJA 1ssvasXRJ4WFrzUUNpJGL6 LmKcTAAdp0Gyfxp6DhDdmD FyZFxwbGFpblxmczIwXHBh dxQUGrSTKU7XVMOLFKVCV1 gUQHNIFJ2BRJFSJhuqfGMx VLBaFWZbMVSCOP9SUMEyY8 bFVlCfQK2DUHMwTLPcdGIo EJOyagKDUlWIAA4NNZ2ZFY wgQklPUFNZOlxwYXIgICAg WORhDCcDE3QJUCDmPRBEI2 PODFdDVWbpLh4oTIYSRY0W N5xWY8ATQBWJGI7LDBxxNM ApYLAkJMJaSG5WZVwuDILG LV5CRJKXOJCWPIrLEIARKQ ELBEzDSCOBD3VWDIrKBQBi snirPSFgZk5vE6ANYTWQWC wgQklPUFNZOlxwYXIgICAg GLFiOOMVC7TFNpSYLW9WX7 0TPVHSMKEZII8SHYXPDMxI VB8ENCOUEOEMGUPVL6EwyV FyICAgICAgLSBOTyBFVklE HX0YUQXHBcHTXSpWNRZnAE lTRUFTRVxwYXIgICAgICAt NE6DDYtaCNUTYU3CFJQBGs dBTklTTVMgSURFTlRJRklF UXCHNUUUXW4VQr5BLLTWRs xwYXJccGFyfXtccnRmMVxz h5HoN2WqAxInELufngByFM AbZigantkiONEoZTA8zvYj QWFcRDdtJTCjVNccRr2loK InwXcqIiWhIPSez0xyxfQL IHyvIiXlX961DXPaJAuxv8 qvl9IwPSVoaWDst9Q5RSEJ zzwhfLg9l2lhQfKjGkF0yZ MvYSbcO9dhrtBmbDPsC5Ks mARfsNm3hYqfQ41xz3J4Vi yaG6pzKLRsVYJkX4YfLL3t WUTtNkc1NJJ3HII9WNEpUY ChW0MgHF9jNPPcyFFbHVm6 j2xpyHcuZQPtXQI0l2gcNM vpbbR9CU6arl3mdSl9s3su czEgRGVmYXVsdCBQYXJhZ3 LniXhdFh3sfJo2yQrdEuna AKQ1Hyp4KI3yvh50diz7lI qxCOEkiqxiMdF6UCzeOSSy ymhbIHz0PAncTWHxeMK0CM BvjBNeE9JzSGQwEN8nktu0 ZDI2QEnoGYAzGdA2HKKexK RaENGaeArvDDzig081LYB3 XbFdGZ4qN9Uvi0R0pP1frE DjZTNicOJkRzDxLZOpgb0c oYOdDIqtu7KoAIE7muJ4pO VtsDUqXHHhQU97Jdqam4Gq GifqSLQ5DJWcofHcr1Tec1 ceVhKuuwWyY1htR9TkUSYi RPLcXNYcXrRtjgRcv7Eor4 HuwNDgaRd0s4yvCLLhCIJh eEfhq7ecICU1LWHeC1O9iV Bit8xdHPosKYZheWU1yzN6 FGWuiBUeF3ZerX7dKNEsZO 4qcso7m1shFJU9EOotEMAw McH4svF1URAxaUIyZUTglN elTJlfs125DEU4CpOhSUQs n8CuL5AetSlnA16atChdN9 6nNMWtzPtgfD4poJzmmI2t ZjBcZnMyNFxxbFxwbGFpbl xmMVxmczIwXGxhbmcxMDMz MYjkD0fgCvPqBWJepLfsYC sgr3TrJGCiJXMvEnwbbmRq XHBhciBJIGhhdmUgcGVyc2 9uYWxseSByZXZpZXdlZCBh fDsdn0LuQ8fgOO1xL9RctN FqzdOrgnXrIHzcZHUzn3y0 gPOtkHxae1XfoSZzTY33ik OoKJLzISM4XCLbe2gnQV32 qwzsWyNrnP70ivVqzuRsHR Vjv1xeD6vleCIgs4Liy2Ve hdLiSGvjs8HrJS8xvHHvxz egpES4BORsoLJgvqNygpN7 oDwgEBQlvN7ctZ3vbIhqlU 2bIeNyCfGqBVjoGW5sALYc T1abqBSrXANuQBSzT0xnQg LyrQ4woBhaWvzsqzZ8NWYl cn19 Clinical Information (test code = [id number]) Shivani Schuler is a 47 year old female with IDA1. Gastric polyp x 6 r/o adenoma2.Duodenal Bx, r/o Celiac disease 3. Gastric Bx r/o HPylori Gross Description (test code = [id number]) h7nwtQEfHYEbtXAPPKA5QE GoZC0hvNdomFr4rDunYVTk rbX2gPQdXRqop8bhMBU5c6 qeclSTIdpuDPHoPR6jKKxy JRJmAX1kMlGkBYObNaQcKD BhcGVydzEyMjQwXHBhcGVy rEW5GKKkRH5yavocSGvxBY bbQUYvbpM5TWIrmUKcP9Jm NMEsWV5hnpuhZFR0PWMOQi hjIm4nrUWmeUftBeJjXfYy YXJzZXQwXGZuaWwgQXJpYW m3mY0NIiaeTBW4RCYWUofi CrrqeTpwj9TaqUAiQVMhEY xcaWQgNTEwMDAgXFxkYiBP KsBdDyD2Mgr8HLS3HeE0QE t9LKLXCUEzMrzmUIG3WqA6 JLz1KXXwVI7xPMksqELtDR pmStwbIQdhV070YXskBZPh D4UxT9YeBOfkJsOoQWfzNK MxQTVaXVpbNQAuQ1RRTAEa OFC5XrGkIJZzDNt1TXokF2 TQGIMiDNQwObZ0UEVvYnB3 TNm2YYGPTs0aTEpeZlWiMW u0HKV6ZSt6OcNrCMCpPgQk ZQQoWVIfJFwpxEQdQD0vwF gtQEHyEI5FPGLmQKroSXKl IvBrE1IEQ0dOJF2cLNrzaL JjaFxmczIyXHBhciANClxw SEJjSJ4RXURmUConUWu5cy UmHFYcMvMeXFQzO05ba0TZ r2KbLK6ICFn4kfIvqmvabW 8rWTXlvhLcBYzYxTZimY3d lvMQPGvwEAPbA9OakqLwKY csDBGwet0zcNuhRSbkHvEq bGVkIHdpdGggdGhlIHBhdG rzxjThF8V7svQoRO8xQFIM BWKstB8cRPBdTTUki5DkkV ItxCwoO5OenGSzDgWmq6l1 hXM7WQOyeeAdWOKctCEzDO Kgxl2mOFyiLkDsE1E0FOXu DXVsi10epTK7jzTtExZcnQ c0lUIqLEM8JT5hbFdynsPq m6a2hN6aAOFzo2M7RMAsl9 D2MWUfisLxkQTfsNWvJWDh EX7tqkJgHF65HSRgKDjqNP oxKQB4LTS6NJDpwICak9je gfiaBn6gWAjaJL6wOSzxLC 38MRKzFYqdFVYhB7GgW1I1 TQcxOUReBWMvlBCrdF4sxk EzwtSjwRp9JFOdKVQ1nCVd lKdjGJObLxgawYU0IANmVf FmjtEiu8SjeMh8vTTcJPrd CAFslX7luP9gBHLvMBSnjx LCLjsqDNVzLGlyu9MzKGoz cGljWHNhMzAgDQpcZXBpY0 5qc4PBp1Xep3comXxce9Lt wEKpHA9duLQaRO2Me9ksSE EwaYAzRNV6VCifi3sxDXsd DXC6RTVmMdCyBBFoYJ2SHz KuGLidLGp2SPrvHZl0NOu2 CA8TEqGkJHVxJvu7CpC2Qj VbYIe0YZdcMT3JWFN5XRJw KPXyZDipVYK2BJMoUOn5MS IgXFxzcyAzIFxcZmwgXFxu F65hrPHkPYwzQsNfBWpfaJ owUIMlKSK5SZ2KWOMgIrRm A2ITM9tWCV5aUjzcvdRfJB CnddGHQoffMSBxUG8YFDTl YKueOXe2wyDzDQHwFzVjWC HxH00jp6IWg4BbMQ1TYFw6 vjQbcizkqY2nAZRqtnSel8 IzMFxlcGljWHNiMzAgDQpT yFRmgD6kprHBYIbqLZAvI3 QhuyPuKBpyTVEfzd4puQuw IGxhYmVsbGVkIHdpdGggdG abFJImlYuzvlFoY6B1zvRn HA8rLSBCOKCxvT0dVAIeFM ZsOLWcFQPyuH5vVDA9n1Nx ulFaHHAPUJPwzRffCN61fV BjZWxpYWMgZGlzZWFzZSBh gnVlqoGww60oaqKzh2NwXX 4ubKceEFeONZleYtKdCF1y HQIpitHgk1MoEQ0pKGUkwD HgEXZmvfvlmCTfJAb3kNRu GXXcDsZpwLeux1AcETFzGD uaNG90voUlID3iRRgjFP6l MDtrUB1wHBOvJLLhHPIeWz IlmNXuPwIkeWHxYsEuI50j ZxZJcIFfg0PvL9obLB1rgR BxFyqckQXpLGEhqZmtq6Ji pWUxPYTxu3HzsBHwEPhkCH 5sXDT3Ar5ngPRdBGFzikB6 x9YoHPxpSQRlRrfiTGWsUT yyy9SdLGNkoBVHw5DxEK9O XHBhciANClxzYTMwXGVwaW PPu4LxHZQYHespjMerKrCc iVMhVvB0HCUbcAYzUGR6YF 6qiTfqXGMiDWo6KYjeSTEv C6MvT3KrZYhrDmTbLQpqQM ZpIUQsJFksINUxM0PMTUBf EQE0UlLoFBWfVMg1OWyhR3 YGQKVrFBXxOyQ2HSB0KxR8 AYm2KHTLPv9rXPgjUpKfEA YyYnL6TRb6TjByVHEfVxBd FHPtZUYwUOucoZOtOU7ydW ikFQUpFNHpUKP5TJErzCQW s0EbHXDbLKjwEmXeXGTHIZ CCNI3VVrDXXTJcNsZumUIg SS6UUITtjyHtROzvxQhtrU 9pxOJyV9itOdMsLtxscRum TmVzdERvYzEgDQpcbHRycG FyXGxpbjBccmluMFxzYjMw OETkyURKj4ByEYNNJuJrDM NpbWVuIEMgaXMgcmVjZWl2 XYYlvF0qKx7gsOSiuY4hcQ BoQGjqETOdv2r8vDP1vLJw wNV4sRKysDlzWuGdHX5sxF CzWOYBIT41rBYxqcNzJOMg fM3wCJCaIPOfRZN4acqgQB MYTZF5xILzu2D4FSrwPMW8 gP9hsFlpFdOtS8H0ZWYuGF Bxl82biSG8hrLxAqJgJMBa jx0mxZ6dPRmuifCnuRccpq Smy7N5AHVkg1V7OMThmzSl xSMrsVUqWOSxFrM8HOYyHs U0FMSzZGIoeTClRLJeRH3o VGhlIHNwZWNpbWVuIGlzIG JzyFMpaoUuJDQtdy49S9lt UZHipI0ab8ckPmYeLTXhAV JywRUwoLG7ADYxbT7kxL36 faSgzdLUCY8eaJHlIS1SOI NiMFxlcGljWHNiMCANClxw FCVwIXfle9DfITigpGnrXW IpSrLgMFtFeXbuJDLHO5pd xGNnVFauWQVBKIgTW2BBGJ 4ZZZOmqWUIQWA9YN3wVHtd KXOrH6JmF4LapjA8j0gcyN gsc9ThlHPcQX4itBFrWY8S XHBhcmQgDQp9 Disclaimer (test code = [id number]) l8jgpNRxVXDnh3uwLQLfhK FuZzEwMzNcZnRuYmpcdWMx ZYrbseCcUCtnk2AsR7YyDs AwMFxhbnNpXGRlZmxhbmcx RJYcLLJ3mbAuYOAnSQtmKG DoJRptNc6ojTZxcHytVvZy UEOwh2dmhmXNATmqCtPwJ9 19OOJpGOvzp7ftn6WpVNJj hEBya3A8UHUPpyzjsMk0iG kmP95mv6O7WsceX1bxJHVn YKHhY3XhND7eNQIkZpq0HI K0PJE6VTUxUGXfZ5AnRG2o VKWyxPAgNCn5a7eaoHxaKF FzCGA5o2kgTZluwiEyRZ2a fo6dpGc2x7zeacByAGGkOE NauOCSSUYlF1HrdInfTh5m xCv7lMjaSrtuHBX0Dfr8BG 5mns18aws2xJocEOAzugoq IlH6TZjjQOLleqniUTb0JA txQHJmcVI0RUVouKEpX0Wg JCDsCD1bpqs3UJZ0RJxuOM OeVdT9GCWcnWXjLTIxuQgu LYzge909CHL4AaIpXY1xQ2 Zyy8J8xW8egNTpUXNyyFQc ZcYjCZDnwv6meZXuVLwol6 MeWLE3maZ1eFChzMOySJIn ET72Ljqai5SeSvhey6LyE7 8odMK1BJyue4rwQS3lUwZ0 naVgZVexs3ytiI9cLyZ2KQ xpKU1jAE6cAEMttG1wkkyz XHBnYnJkcmhlYWRccGdicm PtFj9zmYfoPUR2VInmQ7ii fB7cVtD7WYqbZ5gjuZ1xAJ u1CLumoCM2QVIodE8cMP7j inkbo7bqQOkdDAinCLFxjx C6fbC8IKBaiAVjP0GchF3e SAVlNO9qdonbi5xjIZX4EJ vpGBOjXXA1VqWgGJRdc5Rd zld8WjEzi1WikKYqFZxfE6 1aq038WUBwuwOmH7kkgNPd nfdtqIKvcgxeVObptwW7AM YhmsBnw4JqEMVcHRP4SFwf CMjpqJCoKHAhyQpth7liJ3 RscGFyXHBsYWluXGYxXGZz MjBcbGFuZzEwMzNcaGljaF unNIokOsLeIZUeQGboA1og PfNaW8YwOIDwXhJxkDCaK5 ggVGhpcyByZXBvcnQgbWF5 TDyjE1m2KNJgykBygWy2vz QyDiNuBRIwVGU8GUczmOHh IERio0LwnqnmoFNsQd4zjE NsBMTkgV7lXMPaNQBeRGoz QV2frDx5UFANnIRccDJeYv LMWOCtBN35ptZrRTJFlwfv c3Q6KBnyOBOth8QbwEVjH9 wiq9IgPWQmb03uIG4jf7A6 z1gvTZW2IB8lk8FwIULcrM GdbOIxQBVux0Puhfuvy6Te HCZrxuUjs5UbTSHzaoDvxY KbZWJmxhGbxk6lmlNoVCPa BHGrA3JzdzuseFwvoyRoIL Ewsc8srzSyCTV8CUBQWEAk DSAeg2ZwhC8jzJDCIMQ2rJ Weny7bepTBoSDyFJMbor49 UEJwOI9oZ7joZZOxJITdwx HxaEFof6HaPPQpsEP7fVVc JS0KZySOu89uWSIyEEAIdj IuAUEoqKhmtUX3sqL8vX4u IChGREEpLlx+IFRoZSBGRE UkJA2eqcVmw6JbgbDuuNss VJUjbQWpj2XyjQEhh8UnwW ovf9XsmCPzhVCmQY8gTRDl clxwYXIgVVRNQiBMYWJvcm R2q5DyQFFyWSNuJLM9gDsn ewv4QNDmxL8yEXVlW7zxgs fxHUxdBFQpo4ZdkB6kkQJX yQYvr1PmmTUdjKZNgQPjTL 1lnnCmETrHKPrMOQP0ncTz YDMzi9ZdUKeoN2dfG09jiA xooRe7zBZ2WOF6fC6gUtp+ IFxwYXJccGFyIEFwcHJvcH LhXUWzxYzwmiIdG4AprwTa cN7lmVAjbaAgKM1nEO9yB5 O5sLEqPPAubgCvl5rkURbj dmUgYmVlbiByZXZpZXdlZC Wik6TiIRtfEYO7VMxejsVf bmNsdWRpbmcgSCZFLCBTcG UqkBBrHJZ6TTegntFklpQx UP6ahW4rtDnixG4guMJakE Y2svtzUBWwBXNwcZyrDUDi BF8hhYkyiM7eEwEuKlAmBD piIZ8hDTNjF1yebJXoDZFz GXHgP9egZzEnqE2jgAtoAO xjZjJcZnMyMFxwYXJccGFy XHBsYWluXGYxXGZzMjBcbG FuZzEwMzNcaGljaFxmMVxk ZrPkPBEiXPddL4brKtNvS0 GvDFDcOdWgjCNdH7fwWZhe MUC6UDTjWD7ncNTeET72lX Hzc2zoXGfylUwyzh1oU39z sDRfFUjlmDsnJTUzr10ej2 AaZJPljqIskk0aBCEdqmQ6 aE8pYBYgpAsgQYWiuODfBZ Ary9WlWNlowELqxrDtRMsp OAUoUOCdxIDmsiL5piFjct EklpDjZFBbkWhoBRYoh8Am GUEuNDerv7Kerk7umKHoYD SaurZCmHjueXGnyD5bI9Jf DUJkZSZkla9pWWKqfW5sFT jvb5VpxrhpKNMrVCPxSXZe hmOdpe7lXPBxlPKSCP4SKU lbhLZcd0MqlbZyO8gRLXP5 NUQwNjYwMjgxKSBleGNlcH DwQUAoyu84QJRsrE9rnDta GNAzdE0efQ1chXoqjD4rVc HePbNiNOhnVR8eGVVmS0oe dQUtAZKzGMCiM6exMyKitH 9jaFxmMVxjZjJcZnMyMFxw YXJ9fQ== Embedded Images (test code = [id number]) [facility] [id number] 19:23:05* Test Item Value Reference Range Interpretation Comme nts Case Report (test code = [id number]) Surgical Pathology ?Case: [id number] ? Authorizing Provider: ?Dominic Keita MD ? [...] HPylori ? Final Diagnosis (test code = [id number]) v3zvmFOxAKWuc3vbCKDpoR FuZzEwMzNcZnRuYmpcdWMx XIwjyjUcNOzrzQdwWKR6BN LdIR0saSgxgJe3pSrkJDQp cmM5pGXhPNgif2meLPK5k8 tyqgwiFPVsKKarSk5osLOg hKwpFuWkPHHvUTt9tT32HF JztF8krJFoODk4ZDDcaZGn omCyGxRhRLVmxSOhyMP9SS XnQT1tbxjuDVpqGMbjWBEj kjA0KOSiiJJfN3YqDNSvDN 3qpictNTH9TGflYBBvFCK2 LcZcZHXss2Nvupn9XmHshG FyZFxwbGFpblxmczIwXHBh qkGBXrYRGQ8UAPXUGFOPE5 mFTQLWHV4BSITTYcmfyUSc OSIzWTNrYFAKBZ4DLIAqO0 oTQkKwBS0GSGTxPCNibCCt DBLeebTMGmKVQP7VMX2IAB wgQklPUFNZOlxwYXIgICAg MUFeTGuOP7QFXRNgJLRFI3 DKZKjDTYnpIv3nLNBDSO3X U0gMP9FGKRPLOM3VFHfsEM LiQIRgQSUnAZ1NZYbbRMSO NG4VUYTAEQGEBSmGILECEE LNDYfBWLAMZ7OYUBzYZAVp gdviCSKkNz8gF3SNGDOALD wgQklPUFNZOlxwYXIgICAg XYRoTHBRJ8SDMoVJJE1MZ2 3IVGLDASPVBO4PILMWNClY MX6AZPQJTCYKRNQOO2IhvP FyICAgICAgLSBOTyBFVklE IC2TRIFVFbSOWImVGDHcRR lTRUFTRVxwYXIgICAgICAt GJ8DILdyBYOCGX5BXDPZMv dBTklTTVMgSURFTlRJRklF UBXYIOMCNJ3LFa6PNGBKWp xwYXJccGFyfXtccnRmMVxz y6XoH9ZiFpPwVNowrpLoSY VmQzlvncfwCAToFLA1osTd PODsRYrsJMGbTNajRl5mwS ZazBgaYqLwUQJga8jrjkRH OHjfZyScK756YMLvQFndt7 agv5WbQVFdiXNmw7R8ZQMF mttyiLq2c6huQtEeCxH7lV LaXOspU9udtxGiyJLlV1Vg qMVxlKm1pBtjN64ps6D1Ba ukM3gnFMErDJQmQ1ZoZX0k DEKvNmd0KCY3WAX9CBFrHI FgC8NuAZ9mIXSzlKDhQJj1 o0pdmPzpLWNkIIF1t5meUM vmtmV3SB6xdt6wzLb6d9cu czEgRGVmYXVsdCBQYXJhZ3 VjcKztFh9taZz5pMtkZgkf MKX5Aqa4AK1fnm10gld9cN euWHCzahaiTmG2TZigBFMq ualcIHt0DNszGFQyeRS3MU MhtCBlQ4YnYGAzOA6tqjv9 RRQ3TJraBQIdXgK5PVTwhS VwGETovVfqXBjgl502SIK0 TdPvIW5eR3Pls6R3yU3ltJ YvBQEgdNNzRyOiNPMbez8v cFGkYNkqz2JuLLB9gqT7sF SciJOjBPBuDJ84Iqtwb2Oz ZlwpSIL9VLFnktLqq2Qmh8 txRpUepgErP0tcQ9AsCBIq ZMGpGCMkNsBbumQld0Gfy8 VegOYqcDh3t8afXNKqWYQe kAdnj1xyXFW5YQTsQ3B1hI Tfj0dtIJiqAMShbUW9bpN2 FIUkoZSyJ9HfzF6kPTFlPB 2qflu5u2eaXKO6GTrsQZMn QsX5kmO7CJDmqJCpYUBrlQ hjQJclz630BCI0UsAcGYGz m1DlG4ZsyZegD16ofBnvJ0 0xSQBfeMnldI1nzAmhaF4g ZjBcZnMyNFxxbFxwbGFpbl xmMVxmczIwXGxhbmcxMDMz XZadH0umYhPoMPWtdCiiNJ mhl2MxDOFnCOEfScsbixFa XHBhciBJIGhhdmUgcGVyc2 9uYWxseSByZXZpZXdlZCBh uJlae1UlT7hiFG2mU4UinP TmasNveqGqPWbmFZNvz7p5 gGQjdEejl4KhdHPlDP00cu HkOYUiDWX4QNJjw0rcQZ32 rvdsBrEtnF94bhItiuNiNT Fla0svU9stbHDly1Mzg1Bv ifHkHWnoh1EuWO8jpGDanc lqjEB0OVAhzVAfihQgniN9 tIkdZCJajD1zfV1twZnspC 2jRwJrPuTyDOrvMI8kKRId B7yhtSSrAMXxBYTdD2rrGd CiyZ7wtDsoJctxuhB1AXOx cn19 Clinical Information (test code = [id number]) Shivani Schuler is a 47 year old female with IDA1. Gastric polyp x 6 r/o adenoma2.Duodenal Bx, r/o Celiac disease 3. Gastric Bx r/o HPylori Gross Description (test code = [id number]) f8zxiZHtYAYkiNXRHTS3MZ CqWP3itQmiiAj4wNcuJOAg yfU1gUMtPCjwk4opELB1c9 bnbcIRMqteBECmEE1qZIyr BZOkNW7iIfTlUDBjOeYiBT BhcGVydzEyMjQwXHBhcGVy aJH8JEUrMC3svwhyNEztCW ebCXUvcsX9WYQywNJkX8Af YCOmUG1whrycQAO3APSPCs fgPf3xcWTijEbfTuCtFrTh YXJzZXQwXGZuaWwgQXJpYW o9fG5NHspsJNL2KQXQRlis KgyteEnvz9TltSZqRFRoNN xcaWQgNTEwMDAgXFxkYiBP SeKzNgR4Gyw3RUA1SgL4EP a8NSTAEOYqSgfzLLE8PkE8 PJy7BPDlWK6qSIttrHNgJL jsUozxMTnoI450RYgeBJSf H0ErK8SiSVlqZzFfEKtwBO FnHJXjSJlrLGEiM9JLAZVd ILI1DrHxUTUqOXo5PBuoP8 BOPSUfSFUjLjP4HZStUmB1 PMx4AJHIYn7tBXmrAcKqBD a9TGL0CDg8FdAqAQMgLkNs ISUdZAYxBKqobKKeHG4qrH rcCBCrGR1JUKBaEXqoYSCu YgSyF0CXW4zVTZ8dEWwsvH JjaFxmczIyXHBhciANClxw AKJrZE8BVDVqPUqxMSw6ey WeALLrIoCgUAAbU01eb8FF m1ZbDW7EXBy5fvHxtubhkX 1dFOXffgHwEVgAjBQbdS9s kyTDVImoKWEqS5LlrrSyWX neGRVmbm6cmBgiPHreMxCe bGVkIHdpdGggdGhlIHBhdG sodcEpH0D7vrFsCO4eXMUG WCNzlZ6tPAMxIHXxf5IzkB TioNyuP7AfzUGvWcGgl7y2 pDT3NOQmspSpAEPggNMhZS Nxuz2wXEssLlMkT6Y7KTQj GQYrk97kiLE2kaMcUmXqxK m1aVZbGQZ0DE6geYollgOk q8h4dR1aGEXwg2S8NZKja3 O1GPZjwuFzpMEcjWFkJIIs QL3akcDdRK35AEYaRZzvQH vkFHQ0XDJ2RDYyiNWxk1lr otiiAu7jPAneEB6cVIztVZ 37ALDkYDihBNOiQ7KbM3B6 MFynFIIfHJJipSGqeD4zwv DaotWvqTz8JSTySQW0hVTe kKukFCCqGwhojZU7SSZbXg FwmaDzo8VfuOj6hGQrNNis IKWthX3hbB6aPUDbCHPkfd OSYhwzZCTyPOhjj4SnSIfu cGljWHNhMzAgDQpcZXBpY0 1ok2WMc3Myd9ofbGrdu3Sn fALxPP1qqRSnUR9Qw8byQG RvwQIaXXH4KXgyg3ydUUkg SIU9UPYpKzNmUXCrXJ3ZFc DaPHrnSYh2AJqxWMn0IZx5 BK9LBlXsUFChTtk3ZiL9Fj HoJLc4KJcmXA9BABX7DUYe HANvHAxeAEI3MQUhBJw2CE IgXFxzcyAzIFxcZmwgXFxu B89umBSeCBstUsVxXQaaaV njPJOqCNW8SS2CTMZpBfQo G4MFU9hJAH6rLwqmzmRvVV CvixBYChpgLTQiJR9ZBNXh OPolYGa8qjAnIVZyGbPbYR NjM11wx4JPz1TyVC0ZRNy9 peGdrwhymY3sKDNlwgEmm6 IzMFxlcGljWHNiMzAgDQpT uNNpvD1aupCYJLgbSFGyK7 XgdvYjWOmuQBPsbi5nvWkw IGxhYmVsbGVkIHdpdGggdG xvSRVhkWeuicOjE3P4dbDp CC8uWGBKHDRyqS4bKKTcUX DgVYIyPKTpcX5jXNR4m8Fu fqFcJCENPDTjnXksTI80pZ BjZWxpYWMgZGlzZWFzZSBh zoCkamVgc79hmrTvm4EbNP 8bvEmiQSaATChgHmFmYC1i PNByrlImv9OxVA4wGQZrfT VrPKNryrulwAHhDAr4pOJw FYDzKlUogOuot6TkJHUqXK jkFW04dqPvMM7dWDuxIV3b RKuuDZ6rHRMqSMPtUQWuLr AchNMxAeCzpCZyDsJpU66s OuJZbIPax1OgJ8kvLV6rkN KxQhymlYCfDRWywSbvh4Kn wKYiXXDee3CyvEXgRHasCP 4oZVT1To9lfRXvPFGjfeM9 o8DaZKlgDDRdFhkeCZMkLG bzs5VxSJEtyUGOf0UsFW6F XHBhciANClxzYTMwXGVwaW HAk3NuZEGAVxmlxNlwRoOh wUMaBqG3OXGqwQLyVCN9IS 9enKhsHOSuINk6DXeaWYJq H1FdG2MfKBivGvVcTZeoIB HeSTBwIWyoQJWnW4YSJQTc DZL1NbZyZHWaMYu9IStuB0 SPCBZqEMHsNdY4HKG7ApN4 MXs0EKHTHs9kHPimCkWhIX ShNrN9YAv3FvZdREYvTsHg ZJBaDBVcUFnwsBJtJK7flT ysKHSuBXJqHME5ERTgqTDO q1BoBPUzNWxlBfPmQSZMTE PKQV6HHxXRBZLxImIhdMDd NB0AYPJoicGeYUaooUxtyI 6feUXxP0bnEgBxKfggdAjm TmVzdERvYzEgDQpcbHRycG FyXGxpbjBccmluMFxzYjMw UPInuVQUb2MgKKAPMlPvBA NpbWVuIEMgaXMgcmVjZWl2 XJNbtZ7gHd5crOAtxF8wfC CkCHgyMTPus0d2dRW5lRFe fOJ6lHKivCqdHiPyVG8vhW PbXKNOGI60uPTzisFsJARo aW9qXILnHKReMRX9rlimIL HOURC7mMJnj8T9PFhrBBE7 lM3zjWhgQwBjQ5A3VDUxGY Cnm76lnDT6fcCfDqLwWHQu dq1lzI7cKNhpgoEijDvpqc Unc5Z9LIJyf1Z2DISgxwFg gOAjqSZxKSUuSwP3MYOyHb S6JKFkMJAmiFSvAMKvOX6j VGhlIHNwZWNpbWVuIGlzIG RgfNSczzPyWJUltw51Z4pq BEGklK6ja8ezVcIiVQGdCM VyqGLjvDN4AAJalL0mjP72 lfVjjqQYHN7pgTUsSE0QRY NiMFxlcGljWHNiMCANClxw CFMsQVyre0QgMLyseLicZQ KiTiAfQXfStIxwNHKHD3bm pQWnJDozILTEUJqEZ0VAKU 9DCEUzhCFBXOI9FR1cIYmk KZDuD5EuF0QnolE7y8nfbL qrx8TzuYCrAO0fwLIhKX6W XHBhcmQgDQp9 Disclaimer (test code = [id number]) e1xieOIdYCNry9ueXMEhtF FuZzEwMzNcZnRuYmpcdWMx STqdnhCmKQmrb4PeR5WlIh AwMFxhbnNpXGRlZmxhbmcx CASzRLE9qqKyLNZyEEtyMI QeHMhhPq0nhMGppNpuFpZw TDStc1capuTUATjrWeTlV5 36GUIoLPvps9iyt2AzSUOc pRTud0K5ICHNxugsjBf1zU rqV10gm4I2MnnpS1ptXDOe VLOgU7BtMX5uHUDvXdw6MD I5WBV3UWPcNAIhH0HwAS0j LRIwcDSeZVa2u5gcbXgmWB ZyHAO4x9bbWWxlaxQkDI2k wa8mvLg4d7qjmiAwAFBvQV KoyQPUDFNmI8JmlSurVv6c mXm7sIjlWhlpQLH0Rju6UY 2nlm93rys5zMlpVGUjjtjo BaC1ZLaxSIOzgowyJKg5JK bjZHBrdGB1HKZyxVFiF4Yr DJFzJT7rebl3AJY6NQnpAY HzZlO5IKBvcLHvTMKczDyp PKrcn355BHV5RnOvLR7rJ8 Ndg0O5sH1fmXLmEJMseRNd GgYeOULzxh8jcAPhFTvcl3 MeMFE0ngH2lNEdfCHkOFGa DA34Xcbwv1ZmVpecu6XeI9 8bgVR1ZNiou4pyXN9yAnV4 fiFdYTvzz1totA6qIwZ3XD muDM7bWO1yPENdvQ6rdowf XHBnYnJkcmhlYWRccGdicm FgQh0xkVdmOGX2KKnaS3lz sZ8cSgJ3IAssQ3zraO4vQZ l4EHytnWK9PLRqhJ0cJX9h isari5tvTNyuEJxzCXXaii C3haD9QWWkyRFcZ8FjkS1j KMEwWQ4erslja2rkCWA2BC rcCPGoGYJ8DuIzKPQmi9Av nnr2WlCok0LdmGGoNQmqW5 4at189DADxxtQfO3mcuHJs jgaarLGzecdzCEhjeaQ5DQ CmjrQsy1QzKCZpNQN6WXnr UDhjdPJvDQJzhWulf0vuD4 RscGFyXHBsYWluXGYxXGZz MjBcbGFuZzEwMzNcaGljaF myFVioGvBbCLCpBHvqM0yf MqAxO2PjZVIwCyNuwVJpC1 ggVGhpcyByZXBvcnQgbWF5 BOewW1w0PAWblaIbdXi1xu FbFqAiEQViUKE3NMrlyDIj NQHdz4AmxktbyAYjNk5jfQ ErWBNteA8vNEZhCZEnDFye YC0enEw4JCPAuRVpeFOuTf ZJSYRrNO70dzYyGMHGruuu e6E3ATqdCFIyw5DagXRdT3 mog7CmGZMsg13iSS9tq5W4 i5ysNQU0SW6kg6YoRXYreG DxhKKaQBDji9Knvlgpm5Oe YBKlajIjm9YkUUHeydYtpZ PoMTYylxRhod3jmaUsZTOb AMWlM8WbzaichGpjlrOsDY Zylh1ynxQrRNX1JZUMPWHe TKZlq5NqxB8xfRMTVRV6cC Xyoe4veqTLaIGsPDRgks75 VDGvWA8gT6cuVSEyQNAajs LuuMCvd7CqQPLfkLU6sWGc SW1SOnQVo88lLJSxCVSRma VyJLRsdPngaWU6fsW3wS8q IChGREEpLlx+IFRoZSBGRE WrHM5pxyYlf8DujbOnlUkz ABViaZMeo5SzdFXsr0CqqN egh1CfdINluZQiUH4oCXZa clxwYXIgVVRNQiBMYWJvcm S3t5KjHCLlUUIiXBK8cFqu vql2FYThtD9tOYKrV2efmh qtGThuZFEae4RphT0lyLJI fQUce8PjjMOyiEFWcIFzGJ 2kwpTcQHyPIRjQRYX1ewBx NZMnq0HjUHaeB7eoC72qlI sgoLl3fTK6NQR6iL9qUzu+ IFxwYXJccGFyIEFwcHJvcH NgNUYitWohjwPxP6OwznIl vG8ufEAfjtAaPK2yBP0eJ3 S5rCZiVMOzllXgb3nsJIti dmUgYmVlbiByZXZpZXdlZC Nte4KnRIdgKSH4GYtzaoZm bmNsdWRpbmcgSCZFLCBTcG WwnIVpBTI0SRfqwuZmlqOp MZ9crE8fiOxvtR3jrBIpaO W6adpsMPBhXJZnkLktOFLr CF3oqVkctU7yEgPoZyDiJC bsRG0iRKSkT2jhxGMqSQMt UHGyR7yiNxWluK2zpKbcXO xjZjJcZnMyMFxwYXJccGFy XHBsYWluXGYxXGZzMjBcbG FuZzEwMzNcaGljaFxmMVxk TyKdYVToDGvyM0plKpYcX6 RvKHWpKnQfdKNnY1icBMyk OBZ1NCAkYV1qcLMnJW09sO Slh0plWSmeaQfaen4oG58q zTNiAVgetYhoANVgi79ub1 HiIZTghgPvcc9qCIRhdgZ1 mC9tMKAesIsxKVBzxIDeXJ Woc3AwMJynlYNsieKjKZrz YWWyBYMdvKZrsuD3ybHyck DnbsPoNCFsxYceMGImc4Hn HASaVEpfp1Avpf2caAVdMS XcpfRWlCaswCHtxZ8aB2Ji HSQfBWVtlj3fRTVlzO9zAW wck5KlliatISUkCTLlYFIx kcHczj5dZWQuoXDRUY4GAI bciATth7QqfnJdS5uOLVZ9 NUQwNjYwMjgxKSBleGNlcH LgNWHmkz12EJAnjX4pfUdg JMJrwR1uvW9viHxyhE5bUh EuBlCjMGwnUI8nGEOzQ7hm zBFnLMJtJLHkC2kyJcVojL 9jaFxmMVxjZjJcZnMyMFxw YXJ9fQ== Embedded Images (test code = [id number]) [facility] [id number] 19:23:05* Test Item Value Reference Range Interpretation Comme nts Case Report (test code = [id number]) Surgical Pathology ?Case: [id number] ? Authorizing Provider: ?Dominic Keita MD ? [...] HPylori ? Final Diagnosis (test code = [id number]) k1igcTQaEDKjx2amHLHstN FuZzEwMzNcZnRuYmpcdWMx ZMymipCcKHozhFryLLM9FA IyCM0ioRwerCd3cUzjGGYx ucG6jSNoHCuof3apPQF9f7 xoylqfJOUeXOxlWj3agHAp sGfzHqNqVPUbTRd1pJ09RZ TorR4qhXMrYBv9RKNffTEv iiStXdNfRJTxuVGbhTJ8LI RbHZ5yxtirJRjnSHipVXUn hbD5NKPtzCRvQ6FaCANmLZ 3iskrnJTI4TAntGZWsVVS8 LjDwTUDgu6Bpzjo3HsQegN FyZFxwbGFpblxmczIwXHBh icLUBlIVVD6MGXVACHOXJ1 sKXOUVYY0AKMHEAtprzHVs MWHnICSoPXNXTO9IMUAdZ0 wUNsWdQN8KGSJwGSQmvJNk FPBznkHBTnNTDA2EBZ3KMK wgQklPUFNZOlxwYXIgICAg MUElYEdSG1DQICLlIXUWM7 YWLRoBITlzEw0sXLQHUG4M X5kBD2DEAGWJQB7ZWTasDV SeSGFsGAXkRL4TIXwbKODH ER0WQIHBOHWAEJhJPVFUPM LDAKpUJJDLS0VFEYpFJUQx cincTXJeDm6sF5LVOWFBHW wgQklPUFNZOlxwYXIgICAg JKYpNDBPC3SMQtTPIJ4XM6 1PVOVPLTSMER0GQKVQMMgG XJ4WXAZHNOWSQCQTB6YtpA FyICAgICAgLSBOTyBFVklE CR2AQMWDQlWSFTeHEPUjGB lTRUFTRVxwYXIgICAgICAt BB0JKWloMIOLDA9TOKFOQt dBTklTTVMgSURFTlRJRklF ZQMNEUOQID0QNq8DSLMVRe xwYXJccGFyfXtccnRmMVxz v2HcX2UwNqVmYHgtzqWuBM ItGapatcqwMAQwWNQ0yjQq IZPnGXdxQQVhNFzzHr1anL ZdqPpkEuRqGJZgv4pzhfID AOvvCdTwQ250ELHzLJlwt6 fmm8GzWHDslNIct8E5MWDT kcqfuXl4n8lrFuYhDwJ5zB VhIUaiF4bmznUcwEGyA6Dr gMJwzOq5dGceA70kw9L1No xtJ8gjRJQcCDOpO2ApWB7h RBJnTrx4MAQ9CMX9YJFnLJ LmU6UhTL0pWHAxiUWrCBc4 w6gxkGjlUALyZDQ6c3feJH edtvY0EO4anz2xaGn7x0ie czEgRGVmYXVsdCBQYXJhZ3 QgfUveZb2mgZt1aBwkDrzl IDS5Trl8DR7hrf60uvy8qK gtOOBqslhbFlD8TGaeLUPb bplnLSz8RReaYRVqjDU7FC XtcTCzS5NrPSZmKX5ezsp7 LLM5MXccONUtPsB9THNhjZ OsKSTlbRayEEmjv435JDG3 ZtVzSH7hO2Csx0P3hD7qoW DcIKRkeCNtAlWeYJKihz3p wASgAQmbm4AgKNP0brJ3tN PkfJMlBVWgTW31Sgzlc3Vn JyglBSW5OIWqxzShq4Rvq7 eePyIgsaIkF2ykM0YiCKNe GGRvUXCtTnIqvbPfz4Kec9 JnqNRxpPp7s5faUNLpWNIw lLqyq6anTIT8PIOfK7K0wN Mmf7yeEZcrLCPskYM3xjY6 AKIcmNZxB9WhmF0xNXKuZV 5ztdn9w0ouJGY8NSagWWVm TmX4rqW7BVLccLPnBSJuvK woXOcov835ZBL9UxVhPQLc j9LbM6UzrZmsB98krWwjV4 0lHCFyrTakkY5jxTbroS1r ZjBcZnMyNFxxbFxwbGFpbl xmMVxmczIwXGxhbmcxMDMz THtrH9pdBmQkNGRyxIygPV kqn2EfMPCdZQPsIaidjwYt XHBhciBJIGhhdmUgcGVyc2 9uYWxseSByZXZpZXdlZCBh yGqdr9MtJ8egMY9qS6EpuM JofiBmssBxJKupQPBvk6o4 uJSvpBlji8UweDVnVK47dd AtSFLxFAH3VZAur6dkJR67 gupbWkIrfA43uaCmrvAbVN Xtr2jxY3vsvVCee2Gdn1Hc agGtPIjog6FlBA1ywOSmsd ngnQU1NZEgaGJjovCstnC4 kJlwFFGicH8snA6uzLezkD 9vZnNkUfGzVMmaVH0aYRIl O6kkjQIyQENuLNHyM4baUz SsnI7cwIeyQbrllbF6CDKf cn19 Clinical Information (test code = [id number]) Shivani Schuler is a 47 year old female with IDA1. Gastric polyp x 6 r/o adenoma2.Duodenal Bx, r/o Celiac disease 3. Gastric Bx r/o HPylori Gross Description (test code = [id number]) j3mmeKAwRICjcLCHTQZ0ZN MlFU3erJqcySa2gNsdNETy vdX0xBGtJNiov0snSUW7c4 wqgbFWJxbtLUDcIX4kWPqw HFNaMI0cAoNlXJViIuXiTR BhcGVydzEyMjQwXHBhcGVy qZD6FHGuOP8aobnnGGdfBV fbQPFznfY2LOKtsOGaG4Pf QYEmDB0xthxvKYC5AJOVNh eyFf6kmAObkYbaEfUhUnPy YXJzZXQwXGZuaWwgQXJpYW n0fO9HVtuaCCE1LOIVAmjr AkrbhDztt3ZpjYLhSCCpJT xcaWQgNTEwMDAgXFxkYiBP RjGoSzW8Etz7NTE5QlD6HR t5EWUZNUXdSeozEIJ7KaZ8 THp0QHBkJE1uPJcuqTHcIB qoYoheTUrxC111XVcrZSHy K0YoI0HnVIwnKuBeOFolOR AhBVXyBNxaSHYoW6HZEBXw ZZT2TmHvJAQyTQt8WAteS4 CWYLIjAXIiPlM1DQEcDtH2 CAl9HCWMHn3xORmmNfKuNJ q9PNN4ODr9JnQtFZMdDnCm WQOhRANkNBwrfZYcXV4soM amSYDuTS5RHLRtNMffYZXf IbNwA5BCK9vZFM3pCNkowJ JjaFxmczIyXHBhciANClxw HQLzOK6ILIDkOTgmAHg4nb NkVHWoGvClQTObL87bl2WU s4PeNO2HSBh3ssAnbfkpoM 9kEVLpojUzLMcBnFCpxX2u gjTRSHtwPLAjA0MabrStWM huBLFrny6lwZftZZtjNeRa bGVkIHdpdGggdGhlIHBhdG rlmmUmI4G2vbFmPF9sHKKL ZSJreD3cNHWgBWSmf2CncS ZybDplH4PdsWPrZiXwa6z6 uNP0NUHoxdDeLUQicJArJF Refj4wJHanTdYeF7S4VLEl XUOru54gsSI4pjFiVhSkmK m1tJTvUVV9OS3qwHjqhuCo s0p3vX1vLEGfs2D1RVUzz0 L1TUUxqqEmnIEtvBXqPNPe UW5rizGbNB05FNOoQUgxZP fdHCF1ZGQ3RWYsrZTdg4dp zoecHt3jAPekAZ8cXKjwDB 47OYRtLGmtSHExP3PkE5R2 MGgiSCTrADIinULgjR6iul ZoadFfpWm1USJkMPW0aUEv kVprOYNaNxusdNA3OCAzRx RdltYyz2ApxDm2yZUzVZcx KOKewV1dbE3aKTJbCWWqal GSFhakVZGnAEqqp8YdVCgm cGljWHNhMzAgDQpcZXBpY0 9qr4EFa0Mgd1jicOjyv3Rn bOYgNW3abKSgBH4Di0nsRV YtoPUwIEO4HWbcc4aoCZzs JWA8NGNiMaVfUOElDK6NGi SlYQwmPRl4LTbjGTn7IRj0 WZ3EAtZxTHLoSfs0AzU9Dr BwQIz2UEhlXM5GEWN6ZQJt DPEsGQmxDAQ5UGXdQVp0DZ IgXFxzcyAzIFxcZmwgXFxu P91alCFrBGduYqMnTIbqiP qpPPKuUPQ4RM4LBWDzNtCx B3MYM3nFXV0iOztfkpQwZK KpvfFKUcoxYLJePM0LNWRs VQhfWOd8seJuPTVoKnCxJO RtO45iy8ZNu6VrVL9XKQa6 dcCplsoulG8cMWQbpgYpq2 IzMFxlcGljWHNiMzAgDQpT tUXlmS0vorHCWJtfUIJwV6 ThflFqTYmkOAMcea2nqJlh IGxhYmVsbGVkIHdpdGggdG lkDVUedLvinkLfT7D3myPd RF1oLXTHTFTciX1tGBHjCT DkXYByOKCntA7tGSO4v6Jt vnMhCSGFIUPmvAkkWV71uL BjZWxpYWMgZGlzZWFzZSBh tdJzprMjp40gfnMzy9OhOA 0vvMrnLTsNFMzrTtUbSO6k XYPhhsVyi1AuOC7rFQJjrH EjYKAhjksikFWkJPv6uKTo QEErHkDufKldt9DzUJTdXU zzVD22ztCnQT6sXGmsTG6j CRprYF7lHIGdHYWhGXMtQz ChvAOhIeTeqZOeFtHyI32l YaVTcMLxm3KvP9kxCL5cpT UnOolugWCoNOLvwCiwz0Ad aSDiPERzn2LuiLWmJWkkLQ 4qVUS3Qx9aaPAiPEMaazU0 l7SxQCuiXJJoKqfzGZFyKF xbd1HxNFNomQAQr4WtNS4A XHBhciANClxzYTMwXGVwaW VWu7HfIIRYMnjvbAueVvTo dFVbQfK8QGPkkHLwRGN1UQ 6rlUjaYGJtURd3EZxwTKSi K5OmF5RvSImxAsLtVRicQG QmGXWbBHnaQMQrX5PQRXVf ACX4ReBnWTXtOIn4HLonP1 IMHKWoGTEgBxV2JTR7ChZ2 GDj7UTEVBr9zPUbaMmTyAM VkNvT2XRe9YyCtOPYrEeId AWZjDYReRLrskCUjOV7qeS dcDAZoAQXnOXZ7YNVmcDGW q8EiQTVeTAzdSrYkEWHRVT MKIP3ZBbOLQXMjBsYitIUu JA1BLGDmhnVaOPnwvUdrsN 6ovXZiB3wrAdYdCrpnqXzw TmVzdERvYzEgDQpcbHRycG FyXGxpbjBccmluMFxzYjMw BGLjiZEOd7UcDXGKIsCuQO NpbWVuIEMgaXMgcmVjZWl2 VIKswW4vSi3aeSZfsF0ygC GxFNmoAYDeo3s3nIM5aFWp xTV8qMIaxAqbCxZqEP9ubV OmMMCWIP67bEKekdHvWDEs sF4sWMFqCBNqQSZ0ttyuLC HNXJM3eCVuv5U3HLuuRQO7 gZ3cbLajQwWqU1Z8JAUbGJ Rop22tfPE2zfBjYgUaAFWn qp2ixQ3tGQvcfaTfwRgkix Ufk4B0BFXea6S9IJTlkuRd iVUvsQOuKYMvGvE9EUEiQu I7JFUfNCKebLWkPAOsWV4f VGhlIHNwZWNpbWVuIGlzIG GxkKCjshYwQXOitb29Y4lr UITycV6uy0muDgJoNQNeQW OatHShqFL2EUVvrP2hsC42 vxFxadCDKW9boPZvRF9TSS NiMFxlcGljWHNiMCANClxw JNDzMYqxw5OgBOwfxDcsLM RtMlFcOPcVmEhaWTIJU8tm fRAhBGhzSWJWKPlLJ0BWRH 1FJLVuzEHAHEM8IV9yBYpp UQUcA2RyW1XcwgB3t6cbwC npk8JbrIWtCH1thJZdYD4K XHBhcmQgDQp9 Disclaimer (test code = [id number]) l2scmJTrFNYyb5yiJKVpnI FuZzEwMzNcZnRuYmpcdWMx CHiacoMzNOqrx3NlZ8XsGu AwMFxhbnNpXGRlZmxhbmcx DZQsBIL5jlImEMNsKQsnHE TcTGadXi9bbDOqmWcgRqGx FROfy8eshjJJIHdhNnDyP7 34URXwXPsll2xoc2IfLCMj mLNel8Z8JWUWmkwkkCa5dX zbY41tb2W4HdcvS8caVFDb JJJzF7ZtDH1lILXjSgu8FK D5OFC8IFGpTTAmI5CsBL2q LBBtzTKmONn9q3jioQzzDN BjQBT3s9bbPVumfaYjHI8t nl3mkEr1d5kqnoAaKBFzYQ XwdAAWCEOoN2OkwIknAm1m nZu2rCzqTbbqFBY0Bxv7CR 2wok13plw9rIapFKCulxce VhC0NZnkNJForjvwOMo6YB dwQYKntQC5BFEbdXUyL2Xp RWSbQX0yeka0ILK1VGjlKI CmSaG5MGOscVYmPXWqbOmq QWnbx394TTL6LoDnOV7iP7 Zax7E2pP3jmSLsZAElvKEp NdDrDOKrmt9fmBZvJOuuz0 VgADA8dqI6kCSjzTCgTXGg NY85Dksrg9JrNzync2ArA9 3elSH0IRlje6hyTE4wBtX5 flQkIVsce8ocaX9mZxM0WS saGG6rRY6jKNZtrG3mpxli XHBnYnJkcmhlYWRccGdicm SyNc1jaKreOFS9KCrpW8fs yV4jLcL5XCxxO9mjrI8bVI w2EDvhlNN7HAQwbU8qGO9b sjhqn1soPOvsIYzbXZBnxo W4xlM0XUDsiEVlX7MivC2n GLTfBI7ungdsk0lrKPT9QZ qrLOFfWTM8BcLyOHDmu6Nm wgl4UaRml0QtyTBdZLnrV3 6ez876DVLnibXeE1tfuHOv kxdldDRywwqdFEtwsbO7TZ QysgPas7NpENYdIOS2FVul EZffaSEkFZVgzGvfd6flA6 RscGFyXHBsYWluXGYxXGZz MjBcbGFuZzEwMzNcaGljaF psQSwdJjQaWIDjTYvcB6cz RpBdW8PjVTLfHcDhhZFhM9 ggVGhpcyByZXBvcnQgbWF5 VHxaE3i6GGElqqObiIi4yu QcJhLrLDEaUCF5HQftfRFy TYUyg3QxflrnrYStMr1mfT DlKTXstG6fMQKnZRQcAGng KX8viQd1RLNOaUZllGObEy AJILUmIN12wgJvVTZOqpdr s4A9PKmwJPSbz9JpjXZiI4 cjl4XwCHSkn47yOT6aa5P6 r0vnYIN3IX9rm9LhJUNjjS VujQXdTXJxv5Lwkmsea9Nd ZWShmeBah2MwSNLnucGbzB DtIYUkvdQmew8xgdXqEFCy CWDtS7HdrculrLvrkyWfUX Nyfh0vbwBtCMD2HAHHUDTh JLSpk3YxoK1srANIOEU6eM Corv0pkhYRrVPnOSFyhr87 IFVsCQ1hN7uvMKYnUPWukw GuvTIoc1UqQAEmeZT4xWTb NN0ZNaSEa43gIWAsDXBFqf TyICDpwPkmtGV5pbE2zD5t IChGREEpLlx+IFRoZSBGRE FwCV4iwhEkr2SiliCogMza LUWojLBka8QqoIDqs9PuwE aaz6HwrIHwfYBlWJ5xDPWn clxwYXIgVVRNQiBMYWJvcm D9g9WxIIFrLPVaWCP3oBin jcf2FKCxjQ5sUWGhO2ycda qkGEeoPMRzh3LerT2tcPZX fSGwc6PysOIphFIXaHDlGS 8olyZhQNtKICmVPWG7wmCk BNAje8EgVHmzP8rvU91brC iuiYj2sNG8POY9vD8oNam+ IFxwYXJccGFyIEFwcHJvcH RaGELqlCarfzFaH2QxwlQg bG3tfNVwjySvQM4cVA6uK6 Q8bCWaLSMmgbHuk4knNSfv dmUgYmVlbiByZXZpZXdlZC Ojh0HmBZkbHNS8OOjvjeFs bmNsdWRpbmcgSCZFLCBTcG KxbRKqOFE0LLzqjkQammVv AI1ahQ7zlWrttD7piVPhiV J8zqqnEEIxCECqvKdqNTLh NG1omDyjyV8oHtIwAuPmAD ylPW3dSTFpN9xekSGlMOSv ZZKgB1nwYwRfmR7piGymLC xjZjJcZnMyMFxwYXJccGFy XHBsYWluXGYxXGZzMjBcbG FuZzEwMzNcaGljaFxmMVxk UgYoYTRvVDboU7zxHsLeY6 JcFRNmFkZeyIZeH4szMTom BID8SIVfLQ8rcJIzZJ76yZ Lfi5yjTAklpTrzyc8tM80j pIGfDQnadCvuUUXcj10wu6 GcZOEwzqNgut5fYGHndaD4 aF6sGCOckCbpOAYcbOFiRC Xoq6GfMGzeyXTmbxNgVPxb HXPzNKJdoJUrsaL0ijVoep ObstWzTXPsnRpqPZGnf7Ve AMPwOVbxf2Orpw3dxZVcQQ MxryWYwFxsdRWwzV5pW4Ha DATlIWCtcx2bGPVvjO2pYA hux9AizghfNOVzRTAgJYNp kwJrhh4tOVFkwSMLPN6GYW ptgGRsg5ViwwSqN6pXSUL5 NUQwNjYwMjgxKSBleGNlcH MtFQHvho00XVMqhI3bcAlo EFLaaC1nfD7agQwwzW7rIe KaUdHcRZfdUP0cNDNyM2kr qTSzULLcMEYmF4jzYhQytR 9jaFxmMVxjZjJcZnMyMFxw YXJ9fQ== Embedded Images (test code = [id number]) [facility] [id number] 19:23:05* Test Item Value Reference Range Interpretation Comme nts Case Report (test code = [id number]) Surgical Pathology ?Case: [id number] ? Authorizing Provider: ?Dominic Keita MD ? [...] HPylori ? Final Diagnosis (test code = [id number]) x5fjxHYwEDEdp3rmDHZdaT FuZzEwMzNcZnRuYmpcdWMx HFczwbNrVTyueRvhOIE4PP YoVV9oaQsrkXh9yPyqEPMu jkV4oPLiOAggu6tiBOF7q5 mtrgirIKLhPNgyVz5eeUPh nMwjLcKoJZTnBDr5mR70KA XorK1qpFWdOLf6BXCrlIRi jnTsEkFmZANudXMmrUL3NX TiNE8yxiizJAixQZenIOMu qwE8HMMmvQYdR2ZjBGLaXK 7iaxbsIKK9JQiyVPPnXRL0 AiBbUTEst4Drhkq4SyLycL FyZFxwbGFpblxmczIwXHBh dmKIGoXFFR8EOKRAFNWGB7 pPTZRVZE2TRPEXDnklwKYf CFIyUOLnKBTLDD8KHRJlF2 bEJaPrES4KRZYiGYXhcGZh QMKncaSWJkYRIO1ESV6EHB wgQklPUFNZOlxwYXIgICAg TIRpTWyQW8QKMYBkKXQDR6 JITBmSGImcNe4cHBLAER9R J5fRN8MAXVBDNT1HTDkoBH AmRXZhZUSbOT9OYJznUNVV HO9JWTGLETUCUXxDGNWYTY OCVGiHYDLVH0UAXCnXUHJg tfxxLHNaPr8aG5GYLSKKIU wgQklPUFNZOlxwYXIgICAg KEFeWFBVB4GXMgHDZL7PH3 0DCWSEYEGBHG2VCZTPBMgZ UJ5YHWHIXYMRQFVCM2HxpT FyICAgICAgLSBOTyBFVklE QS7LQZQELtUURMiMVMPwNH lTRUFTRVxwYXIgICAgICAt XX9BTGoiMHHHQX0BYRZXFr dBTklTTVMgSURFTlRJRklF WUVGNBIMDY5QCf5UGHBWMq xwYXJccGFyfXtccnRmMVxz p8MgQ9UeFfRdPTrlauYbCF OxGazuqcvhNPYwFXL3tiCe VOGtNNafOAYlABnpMn2zjY EzvEmwQqHdOSLmc3lnznEF JDuzGbUuA079MVMkDOnsz3 dfa4LdITJswEAez8L1LUPT krlmoHy6g3srDaCvRdP1qU SdYYcfM2hudjRokKUlA6Fo kFSjfMh7bOdpE59ru5T1Bz uiG4rwVEXoCPSkS6CnFT3g ZJZvMal5GNY6CKO3SPYhHJ BpJ6EzAO6rQHXkqEXbFFr4 b3nigJlbPMPfUXW1s0aaUK eapgD2IR9mlk1seBp1z1cj czEgRGVmYXVsdCBQYXJhZ3 ZcxBgnQb5xtCg1cKvlFkdf UJS4Puo9QJ4omu74yzq5zD ycZLMmznwlFaQ3GIbfGHOu ayrmTTl3XHrkSFGupXZ9MH LkoDIdK2MgPTKyEZ1dqcp9 MWY9ELajWHZhWtZ2PBNqmM OzPXEirYfkMVrfz135ATZ6 DtVsCI3lW6Nci1M6jX2cfL YeGPNxmOTaVnEqYUCtqw8g tCQnJBgky2IhLLA9vqK5wA GfqSFaCCAyVK16Aakkj9Cz MxzqWYC8LAFkpqTee9Txy8 rcPlBtveKgI6lgG6VoPXVg UZWrRUXyZaQhurTuv9Zrp5 RgoSBetOv0q6hzLVZkNTOx jKsrb5zwJEX4RAAiC2M3kX Ezq1wxEEjhBPNwsSU4lzD1 RTWhsWDqU9TakT2lTPOgLY 0gqoc5q7yoLAI2MQdfPEFp YzJ9orO3RVTcyBZcNYHmhC kxQSlfd753TSL8DmTlAAEk s2EjK4VfyPraK90ovGgmK4 5hVEThjGdpnH1jjSvvmI6p ZjBcZnMyNFxxbFxwbGFpbl xmMVxmczIwXGxhbmcxMDMz XAalW5nyMhAcCUQznXkaEM pmg1BxATXvJIUfLwiksgYo XHBhciBJIGhhdmUgcGVyc2 9uYWxseSByZXZpZXdlZCBh cXiea6KxW7avTL7aK0IuvR IuybHszdDfRUdyKOSyd6a2 oPHkwOdpj4VkvGPtKS87tt WjCDVkBDF6QLMly3baLV70 cyhcSaPfzY75ukVtkrQuPV Ctz7xzQ0xhyIOpi6Msf4Vj yaMlJIqqg7ExKM4pdYLsil oswTB8XSYkjZAptxGztiA0 eHcgJKUmoQ0ujH9ykKxjgA 6uAjHcMkAaFHxsVU0uDFNz P5wooVYbGDDwPSIjN8pdEc UmlU6hkSqlPzbmemN0NOOy cn19 Clinical Information (test code = [id number]) Shivani Schuler is a 47 year old female with IDA1. Gastric polyp x 6 r/o adenoma2.Duodenal Bx, r/o Celiac disease 3. Gastric Bx r/o HPylori Gross Description (test code = [id number]) m6kqiWKeIYXxsHUAFLN4AC OyAY1gdSbprXx2rUqjGWOk fpE0pYZcXMvdq8qoIZF0z8 utidSTHbzzRURnBO5rDTkd LPPtTD7xPoGeWIAgUrPrOL BhcGVydzEyMjQwXHBhcGVy rJP1SDBkYS0dijeuOIpbCD quBTTqkuJ6QNZcyOLkG5Th SHEdLI4aigldZJZ8VJZRCv ifEz4rtWHdmAooFrGfFwRa YXJzZXQwXGZuaWwgQXJpYW t0hC5WUqkqNNM0UIGGQzaq LpstgInyi9RzmBUvDIFaLN xcaWQgNTEwMDAgXFxkYiBP PgItVfP0Cth5PTU5AbC9LG i1VKQRQAQdHfgvHUO2UcM2 SXp8AHClHP8eZGsqgFIxLF ujCxcdBYqvG575YPlnNZIj U7TmN9TrCWcoHlUoXMzvXF GcULVxGFdlBOMtY0DWSXOy XQP8DiChJXBlLCo4EBqsA9 XEIUOhEJJbWxE3ZYYmMuN8 OWb7BNEFEg3yGUcaYqHvBJ a7DDX0YLn0LxAnCLNjQeMf VBHpSUPtTYpdvPMxKY8jmV qrKFLxVL6RDQSzEGzlNYJf VmExH0MFM1wZLS9qDTvrcX JjaFxmczIyXHBhciANClxw DOTlEU1WLDGxRDvmBMg9af LyUYGiBuYkETRpF43cs1NO n7VpUB8PKBk5sxLwkqzyoO 9wJBJbmgEgLQuGcFUlpE9p kaETWKdlKSJeD2LowzRmYD ojDQTiaz1ueVniNVdzCqAz bGVkIHdpdGggdGhlIHBhdG wnynHhC0R3btIzGR9wYQSB JVNdvL8pGXLoYHPhj2ZolM PjtBdeK1WkvOOhNjJpw1b8 wEJ8DBGysfWvFKRswFGgLK Htzx3cKPprQdVvN5W3CJHv HMQag25boYQ2fpNtNgOqlC i4jZFqSME0HO6ylGvjnyAy p1e1lC0lSQCat5Y1ZSShe5 X9YUIhatTanXJquXIvUBMk RW7dmlXmBA97DMJjMDejOR tcWWS2LYG8BFYuaOBmj9eh tthcVh4hMDfvMP5cZDfbCI 11SVNhAPtsJIOeG0CcH0Z8 UPngNNHaJWSvjXMukA5enn TcfgHorQs1ZTQbSAE5tFXj dSklNNZbTtaypOF9UKEpXd XepaLqk3KpcBt9qIBjPEzv KYCyuN1zfT5wTPAdOJPhan BEFxdnVEUrGBmnl3JqGIub cGljWHNhMzAgDQpcZXBpY0 4ws4XVs9Bpw6tdvWjmb2Bg aGWxAY0xkZSwLR8Vi0drJU YaoBFjHXQ9XGjlf5bhSKgk NTI9IFOkYoCkYBTiKN0XJi XmYEjbLEe2SJufNJw8EJo4 KF9QDdWoLAGcXqa2PyP4Vb GoLMz2KFsdGT9FTXQ5UIRn NQIkNPdoFFJ9UDLtJWo4VR IgXFxzcyAzIFxcZmwgXFxu L37srHQwWLvvCeShBAlylM csYEEgXHT5LQ0AFJYqIpQc L0ZNG9lTIB8lCdasetBfNI OgsxOJImriALUwOB5NZGBi NLnmZRb1wuBqATCtIqCnKI VwO90ii7USh1VjBK5TEAd0 weWstnpalV7aMJYkjkMzo0 IzMFxlcGljWHNiMzAgDQpT sLFkgQ8zdgCIRJerIJFcK5 RgmfAuBLxwVNLjji3epEdr IGxhYmVsbGVkIHdpdGggdG xfQJQqqFlkmxLdT3P1qwHr PX5zEZDMGUUtoW5rNODaAD DsEXVwHQTphO4lFFW9u6Vt ojFwXGBOVDDcwRajKZ36wN BjZWxpYWMgZGlzZWFzZSBh xeLczkEtl60uobVmo7LgZY 2njVpiOCyADHphImOkNY6d LFIsniVcp5OpXJ7zZXCkoM ExCXVjcmyrmCBbWYq7uEAe SRFnIlIarNjug9JsIUBoUC lcSV58thKrNF7tTPjtXG5m OZvyQZ0eOSOaITQhRKAjFn NmuJFbNcRrgAHyQsXiS49p HqGIaHUti2KmR3fwFF2gkO UaNjiivPNnGHCsmVdwi8Pm yXWaVKUpw7SdiSZgSTqqMW 5uGHT8Rd7loFCgEDYqdvD0 o1DfIKjbZGPbNftwOAPaNX roi8VgBRXdgOYPx8WpLK1V XHBhciANClxzYTMwXGVwaW FYr6RxJYMFXxgkgNziIoUs zDUfWeQ5LWBydKAnJDK7OS 9ejBwkHPXoJCc4ARdoOFDm Z4LqA4DlFJorEmNkIEufYV ElCWZfESjdRGTyW1XBHMVj SIL6PtIwUCKvJQy4NZmvR5 FCSMWvDOFbDbP4VGE1MgE1 ZXn1NBFZJh5tIYwiOwSfFL JkNgN0WPh3ZiVpJDCcPzTp VWSdYYAxJIhdtDDmYZ9jlO soDWEuLTRvLHB9OVJvgOUQ j5CjAQJdGUoaEcEhVRQKHQ FJST4GZaEGWODaKeRphQRj WI9VUCPahzAhZXwodYytxV 1sfSBfN7hhQaQkIqruvAot TmVzdERvYzEgDQpcbHRycG FyXGxpbjBccmluMFxzYjMw YRJdfSBRm7UkDKYVEtHvPJ NpbWVuIEMgaXMgcmVjZWl2 HVGnrA7sIa9dhNGhjK7cmY MvLBpxBIDxb9n5hUV8iAEv vQB5lVFelSbxKgFbBK0ieM YxVOGQKY89iOHrfkScQPQf pK1lTZGyOANlBUW5erkuDI KDFDP3zYZqg1Y6JGhaNCG5 rD6yxBdsDlPzI2E9LQSaHY Umw48tfVO0ozLvUrQsEGRl vw9arY8mORcpjvGglCabli Yuu7R5QSXmw5G0AJNpewCt lVTpuPItZCHpXvR6ZKTvNa C5HQVaRPZycGPoXJGmXY0w VGhlIHNwZWNpbWVuIGlzIG QjcYDntyOmXHTvsa72J5mt ARAstT8aw2liDpXfHOByMX VxpRRcxJK1FLMtbC9zaW65 auUabfKNWS7viVLgND5VKV NiMFxlcGljWHNiMCANClxw SXMbVOakn6WhWCqanDjaSR NiFaIcQGuFbAodLULLM5gj jJXaTKncZRMRPJgUB3SOPX 9GOYTzyOSMWOV8ZF7eSCxz SHEjN9MfX4VothO3v1zakL lvr6RapMXrZD5jcBPdGZ6A XHBhcmQgDQp9 Disclaimer (test code = [id number]) a7xclPNdZJNfp5ijHRZysO FuZzEwMzNcZnRuYmpcdWMx CVewkvCwEWyji1GdC8LcZb AwMFxhbnNpXGRlZmxhbmcx OLPjKQZ9zgKvZWDyXKssHB DeLWnkUq8gnJPyaPrvIuKu YJQpx2pqgrWQENbqPvRpW6 45OUTeJVpyf9ycw8MuAOFh hIVwe7G3XSDEgjjdoUk9mX ceH46tn2F0KwitI2qiBQZs ANOvQ2XmVL8lDHVmVvs3LO C0IOT4RSWzVXUdQ5GnUB3f UMYpiHNfAFd9z1ataPjdEB OcMZG0q8hrIPdwjhRiYD8z pl1vfCu5y9stzdReNBEuEC SfmFABKDYnS3GitPrhWd0z oYf0iXnlHtjxKUR5Fum6IF 2jof47zvy9fDdmGIUleykf SrZ8PFjhYIZvvokbNXl5SZ xyVVCwoQK7KASfcVGgG9Xq JBMmMY1mlfx2YRW6RWcfQA FrUzZ2LVEczBUaJVFnuRlf BHkgg334PEK8NjCvCO3vY9 Lgp3R3rD6oiNBoVBLfsWLh RxFmTSZcdr6liOSzJUpgb5 FeWQA9gaT6iZTeeUDtPBCe CJ54Hmhsg6YnBlmsd4YnW4 0wlVR6VFuem0tfBP6bXgG7 wtGtZWzxt3gzvH9aUrV7BU jqZZ6wDM3nQOOiaO8hrses XHBnYnJkcmhlYWRccGdicm DjPi2poEbiPUA6UFslZ6rx zS3dAdQ9IYwqZ4qejJ3sRD j3AEzizWX9FEOvrE1zZW3f jfrga9vqBJumXIkuLDFqhg D0anE4ZBKjxTJiA9DoaW0e YFOvIX1xfzhgv6teZBB7OC ghPNBdASZ2VnMlRGWdf9Dg ecr8IdRpd0PcqQAbWNlwO0 6np832VMVhxcLfT4vthWTc jnfodIPdtaaoXGcyipC4MI QwgaTxx3VwUTOfRUV1GSri LUsiyPDuZTIrgTeug6lmZ1 RscGFyXHBsYWluXGYxXGZz MjBcbGFuZzEwMzNcaGljaF qhWUrfHpXwRSDwWVmsF8mx UxVtH6LqMMPsPlUvoXIbN4 ggVGhpcyByZXBvcnQgbWF5 GZuiK8l9YPIjuqPrhEu5qo BiKgWpGCWwCBF8HGgysZIy MREmj4MdlaertFAaTj0dpD FlYXHwoH3lUWFxDXIbROyq SI5xfGc0XHQKjWKsuUTtDy FLETYnMG31zqXkNZKJqwio o1A6ZJvpYYJhm4ZpiUDuV8 jnb1UxABYpo17rHQ3yg1T9 s6ntBQU5DF3sk0MeFWEayS HsoIYiNOKic2Ykktzgz0Dj IZWrezYzn4OwJAHikhPxtM GcXQVefvQztn8dkqQgVWXi AFOvO0VbzjroiQlrncCuLT Oirj4dxuAuJCJ2ZOAGYPLg VXPcu4EtsX0hmBNYOPX8xG Vieb8xfwFMtPDbKHXfkf55 YYHmMF5mF5nmMPMbXUMucg MfxDHhv4BjJNOeuEC7zRHx OD5ZJpEDa16gKVZnNIOIei PdYGPklOsuhZA1mvW9gD7f IChGREEpLlx+IFRoZSBGRE TqHT7xglQhx0NkozNyyUgn HJKprZJxc2HrfGZob5SsfK ldj2UhmCGfzTTrVQ3yOPWh clxwYXIgVVRNQiBMYWJvcm M7q9NwFMOqGPAuGGO5rJrw riw8NXOneJ4iJIPzS0mppu frYJmvXZTch9HmjR9luVRP bFHjq5UmsDZjdOIMeVUrKR 8zusAkAUxSJAuEJXF5zxAx AXOii8PyEGrvJ7qdH59muZ qzzKc4sWQ0VJJ3gK1rRkc+ IFxwYXJccGFyIEFwcHJvcH OrVJDibXxjkgOsY4XiamQr zP1toAGxudSrCS3zAB7aH3 Q3lSMoYYQbjzTam4boXRwy dmUgYmVlbiByZXZpZXdlZC Slr4LaLBuvNJT7GFuqdwQr bmNsdWRpbmcgSCZFLCBTcG WeoIVxBHZ5FGbntyOyvhXk HX5fkP5udNgmnS2vkBYclK K3puurYAHfVJWkvYmkPITi SB3wkEznlD5jDbKtCwOrUZ chXQ5qULDjG2gkxGSnYDQn UHMuS3xvIrLayL1fkEitKN xjZjJcZnMyMFxwYXJccGFy XHBsYWluXGYxXGZzMjBcbG FuZzEwMzNcaGljaFxmMVxk MkKzKISkRKnpH2wxDePrD9 JvKYTdPmLukESsK1tjFHzn IAZ4WXLzLV6pcRVlTZ50vX Okj4unRYrynZugvy5fK16g dJYwURcxrQhcOQLhz43wp2 FwGDNsvaTwmv1yQHHekfP5 cO8sXFGlwXdtAFGmwCBhMI Qij8MfRVuizATzkfVmEHoq BPQlCQFtyXPmgjB9cuGxto GeocCeWUVknDewXYJxs3Cz LQPgJFvlj8Buit6myCDvLC VmmuIJaQvpuWQdvZ0sT0Px XNYbNYSddi2bXRCaeZ8rPS yks0IimvvxXFTqVUYbXRHt wwXste1fVGHghKQPWS6QWI otcXCwx5JzfzSgV2dJYMN5 NUQwNjYwMjgxKSBleGNlcH DaHRHmro05IKIdnM3qjNnq JVVfiE0eyU0vkJwqaF6zYz PiSmWlOCtcIQ3eZSRfS7of bMXzZVCwIJCrH8awCwWarM 9jaFxmMVxjZjJcZnMyMFxw YXJ9fQ== Embedded Images (test code = [id number]) [facility] [id number] 19:23:05* Test Item Value Reference Range Interpretation Comme nts Case Report (test code = [id number]) Surgical Pathology ?Case: [id number] ? Authorizing Provider: ?Dominic Keita MD ? [...] HPylori ? Final Diagnosis (test code = [id number]) n3ajsMToSUHou6tzFCBhwR FuZzEwMzNcZnRuYmpcdWMx TDjphgMcEZsoiNbaQEO3DH TyPS6zuQgryOp1yJreFNVa juW9bNAkZHvrq8akDVW2q6 xwlvsuMUGeLMclXf6xcJAe wRjpCrNoZLFnSLv0yN55OJ FtrW3hoTGdXQz8MJTsoZRm asLrOlFyUXOdjOBjwAT2UG HgAW5zekgbPYmnZYqaTNRd exD4DCStnJZfW3HuFELaGH 1hhyegXGH1USkyCPCaTJQ0 NyEzJUZgc0Gnnee5GfTmzU FyZFxwbGFpblxmczIwXHBh ikPVRzTDKF8MDWCTBPUNR1 fEJJOIWD5VMBZSYtyugVWj OGHpXPYgJSSCPV2RCAJzO4 yMUpElXX5IIIWeTKOsrSQv GCIhvcGZOmYGIB0CEC9RCD wgQklPUFNZOlxwYXIgICAg ITIgTDoMI4ITRZPwFAFKH8 GXMVuWMRzmZw1dNPSSHG1H Z1eGU5OCQSVNOX6RUImfNI NrGZHuZXKzTC3DNKpyDXTM KV6IIHHXTDYUBWzXWVZYFI VNMLlFPJQGG5ZODVfZQYQp enwcSTZnYq0lC5FQGWHQMN wgQklPUFNZOlxwYXIgICAg ANLrCIJHV7RWDbQTMI5MV3 1WXFWJHCYLBC6NQQFASJlJ FM1BFMTNYTCPEHKXC2IxwE FyICAgICAgLSBOTyBFVklE IM7TBEBRVvJMLWqRIHWkTN lTRUFTRVxwYXIgICAgICAt TH8OEVrnKSAYSC4FUFMAMr dBTklTTVMgSURFTlRJRklF VZZGODABRJ6DIk4YYAFWVz xwYXJccGFyfXtccnRmMVxz q4ZzP0ZaZfKmXNskjySsJC DxNabbhxndYRBfVQT9hcSl TMVxJKbfUQVkBVzzPl8vsG QjwLbxIkDuRTEev9fuzcNE KUibMnFaM162RLTgIUyyf9 fwj2JuNSPcdFZhs8M2YRKX edoqgFv6v2hzXbGtIjW8tK WmPQeoR8lkbqXvzFDdQ6Dr sCVmxYq5tSuoD35of7F2Qm dtX2hhJLNqCORcJ0BzDH5d UIAmFld6LDA0NGB5RTEuHL HuU2WnHQ8oMBLumIPaTEz0 w7aucFigJIAoRKJ6i8wpHF dyrhX4LS5szq8peQk8w6mq czEgRGVmYXVsdCBQYXJhZ3 YyxAvnOa4xrCd8tBasZvum YWM9Kbf3WQ8fea19wne9dS lzQKGmwulwBhE8ZNcpEDEc layeNDg3SKnaJROvuXQ5IN KgrYAlA3QmXSJgZK4ohfg0 SDH7HXbcGTSsKvS9UGEmsZ CvVDCjfLdyRLcxz388GZP0 FeRaOJ3eC9Pmg5G8lV8rhE UeRYFxtBGiFxYkBQJpea3e iJQaOFzlm4CzYPS9mqP5hI JcaDLuBRHjVU04Xbwhg5Mt DsjjQQX2FYXfojNlz4Tml4 hwSoMvrxAbD0vxY1OsMGDh LHUuGWMbKbYyscZqx4Fri8 SniGLgnMs6i7ifJTVbMVEs uKday7smWGR6CEFhY2H6aG Lln8muWCcjBSGkiYI7zeF9 QRYcjJZwT3EesF1qEDYfZP 7cilz6b0sbPOA6TJgnEDSa WiQ2dhT8IMRpmSSlJMAeiA tsDDsgl687GWJ8WmDiSITj l6XiS9LlkElfV45fpUggA5 4hSUOtsHzjpK7ouYzetN5h ZjBcZnMyNFxxbFxwbGFpbl xmMVxmczIwXGxhbmcxMDMz WPwzL9hzFcHqDENsjCzrLC sfz6SxPVJxVEUjRktsebXw XHBhciBJIGhhdmUgcGVyc2 9uYWxseSByZXZpZXdlZCBh tDvfl2CdF6daIE1vF4BcjO AmfmArhtMwOImvGQHzk7w2 aNArpZgyb2EzzNGoMF75bm VgJABcIYG7PFHmk5qqSO75 siwtLlIioW98dmCaujMaSE Aed9mqC7mhuAYfg8Zhq2Yv riUnKNlpw3MaGS4zjHQidf qsnLS9KAQsoVVumbMlynO9 gRllPGMtuJ6lpW3rtRphrK 1rBhDqAdNdPRnwGW9hLRPa H2jzrLGfBYRjQIMtF4crNm IkiQ4llWslJeipjoN1KNKu cn19 Clinical Information (test code = [id number]) Shivani Schuler is a 47 year old female with IDA1. Gastric polyp x 6 r/o adenoma2.Duodenal Bx, r/o Celiac disease 3. Gastric Bx r/o HPylori Gross Description (test code = [id number]) o5ssuQUoDTAwnXUJXIY5RV FyLB1bjQvhhTs6hEwdVWQx oxB8tYAbSXjem9ndIWZ8a4 ehymMDVnajQOTkXK2hAFdk EAYeSI2gCwBuHKIeYtHpPE BhcGVydzEyMjQwXHBhcGVy bZO7HRViFL8enkmnUNzyJF mbREVtwrG7NIImqWFxO6Gh RCApHD8wixzrCOL0IMHRCo inFd3saRKxeLbbVzPkQrGs YXJzZXQwXGZuaWwgQXJpYW y2hW8YOyvgOBT0SNCWYyrz PrkeyVkzh1TaqAFjPNVcAM xcaWQgNTEwMDAgXFxkYiBP OzWeRvP4Ggx1LUK2OmN0AW i4MZYRNRUvTgkjBDI9DgS8 BOh9XDOlLS1nVWqaoCQaAC meIdwwVNpoL219HMjbZVPd Y3LmE3HsRJvfQuGuHGbnBY WtHJMkQQcnZJHoE1FGVXWa HHQ0UxFaYESdRYy7KItzA2 CPNDVwJDGhYxN5NSDaXpT3 UNi1AJMVJw5eOHpbVtAcPY d8KRD0GJm2JqOjVDKvZnAg INIzLBEaPOtndKAlWP2lhV mvBBHnQP6YFHCaZTvpYBVi FyJyI7TAK0uTQZ3eELshyL JjaFxmczIyXHBhciANClxw KLWwRW7FCVVwEIsgWTc0oq IeLWXyVhZcYNIkO01eh8TO b1ObBK4NCNq7naHhbakhvT 7vHLOrojQtERoXyIKenU1w zlSXIPhwPAHxY9KllfBbXC wzLLIreg2kgPadJSugAcBc bGVkIHdpdGggdGhlIHBhdG ztobElW8N9vaRrKB6eTNKM GDFfnL1cHQQoNKGqj5YvkQ TwoHqwU4XtsKGePtMba9x6 hSL1NYRbywYmCHTxaWDuTM Lnfx8gJUyrSsIjS6S7ZPMq RPApy04usDE4rrReFcLhkC z6mFYrLOK4IY9ioNowhpSk z8e2uI0aUNUkz0M4JEFno3 D0LOFpnnAseZGpwGUrOLJw LK3xmcDtAH97GEMmYZhzXM yrZVV7RWY6QGOgyPXwg1fr inzhBi1oJTklHA2gQTxwOD 77WRYfMArgVQPpV0OsN4N3 WWonAJFxYNRlxDQztG2rwn TypiFdrBg0AJIxPIQ4hGQz lZmqYCItMrmriYJ5LWMqAc BgbyRzu6PcpBw0tZAyQFei RJFglN1fhS9wUGRtFSHtht XEUxzvYMYhCAfpl9TkNHvd cGljWHNhMzAgDQpcZXBpY0 6cm7ZQt8Mey2spaVlgs1Op wIDjJG9eeNKgOG3Cf0gdOS GwhPHvGIN4SMome5iaTVlp PCP9SYBcAxRbLEQeTF7XAk XsQYwcGRx7ZWimRFo9VGo5 RB1WRhYnOONaYdz4QaG4Zl SpAPd2LXpgTR8SYXK4HOHk GPCgUTwoGTQ6WVQfRXg0ZY IgXFxzcyAzIFxcZmwgXFxu Y67isORqRLbnJyTqPLausW atAUPgMKF1HP6NRDYfPdEp R3OVB7cDEV0bOihvgqMcAP EnvcTGFazlDRLtRB6LIQYi AZdcBEj5jeMuOBOeZpKyUA SjR32wx9YTg9FoYP4JMDl2 uaOwqilqkG5hVRGuavCen7 IzMFxlcGljWHNiMzAgDQpT kTKxiP8yubLJQZvpBRIhE5 DpvrGaZJzwNKJnoc3oaMyz IGxhYmVsbGVkIHdpdGggdG hwXGEgmYjxmpBwW6X2cmPv FL5xCFSIQDIriS3yOASqIE FdUSVcGTBmkU3cBUH1s1Cw ukBfWHJWCOZhdSzhQE58cW BjZWxpYWMgZGlzZWFzZSBh xoHvnaYtz21bafRbo1LoWV 0nyTxkNHnJVXljToBsZE4e GBTnnpYvh8CgGJ4mFISveK TvQNAhxvaclYNmOGy3nRFh DWFwWcHppItuc5GcDZInYR tbKX39jgEjJY1dAZemNX4g KNjzMR3uBTWfUIZgOTTtVu SxqYJzAaZrkCRvCpYgO30h JsKWfGChw4EhK2vaAB4zuK DxFanagAGkJXNdtTpps1Yh mGLrSRVlw5AzxXPuERigQU 1vIIU0Dc2gsCXrHWChlhI3 c5WtWKmxRXSbAewzMOLqHN hxb8KmHEIqrCGCy4EvWK3A XHBhciANClxzYTMwXGVwaW QYe4TgWOVOLdkypVcsQbUi bFMtMrD6MMOjpEQsYOI2EZ 6wjKnxDCOsAEw6HBqyJIGe N4AaJ0SbTStgAyHhHIrdWV BnTREzEKihCUQvW4FQTMBv PCP2ZgKoTJXsLKy1BGnjK6 TMYEBoSVYxLvG5PGD3BmY0 FCi4WSQQBk5kKZtkOaKpXL RpSwW8FZd0OxNhFOMjMlMq ACZhVZHbUYefqACkYO1smN lkIPPxSKZxDDM4FMIjnXQW v2RyQEBjUGlyOpIeQDVJLK TQDA0QFeHOTTBqKjIlgFVr IK7ISATlhhXpDLtgvZvmuH 7gdETbM9boLgFdMzavvNyr TmVzdERvYzEgDQpcbHRycG FyXGxpbjBccmluMFxzYjMw CCBanCPAr4BsWCINHqOsJT NpbWVuIEMgaXMgcmVjZWl2 KANbvT8iTd0sbHEdfE7isG LkIGavYRFjh0j9yKV3hBYr yRP2xPPyqTdiZlBxEO5jgY HnBQUSOL28qVVcnwOdFAPm kK2iSSTqHJPeTOB5lpamTI YLDAH9wHCbr9M1TJcrHCC5 gK5ynVhxWwXyJ4X9WZJmMI Ayx26tkWI4bzFpLfPpTTPp ga4cgK6iDPgvzjOfeIqzph Nbm8X9TPEhc4C1IAVhfcUy pCWidFKrYOOnAwI6BKUjFy V5VMUpZOBkuRLtTSRjYD5y VGhlIHNwZWNpbWVuIGlzIG MttMInzdTnYSKkcz17W7su LFUypX0bf3loVeQwFKVjPU PwfHDjcLQ2HIVktD2neH24 tmUofqMZCT3lhBJzYW9IPI NiMFxlcGljWHNiMCANClxw FNEuEDqts2CpWNxeeKjdZD ScGyGpSSpTeEtmDVACO0kg cGGyGMnkRHUWYUrVR0GJSO 1ZOVPdiLYNTKA5AK5dYRld AHNdB6HaX9OrdoY5z4gyeG akd7QaaGOsVA5feBAtCR4Q XHBhcmQgDQp9 Disclaimer (test code = [id number]) a5tqkZIeHHJgp9coJBAzlV FuZzEwMzNcZnRuYmpcdWMx HWfzkmRcIXwiu8JjH4JdQq AwMFxhbnNpXGRlZmxhbmcx BARvWFH1odIeNSGxARizMJ TqFRqdDp3jaWVbvTjdMuHj STQrz4veidPJTWfvHtZhY1 47IAOqWBdeb7mhx1YcKLGu cARox5D1NGRLyynsrMn6uV tbT73mu2V6YkknQ8dvXNZc ZOUoD0VwFB0iRZOqZzz9KV F8SBF3SHZoFWRaX0EoWP6m BCWlkDIhLGz4x4pkuUftXA BxLXK3u2duCQqvieGuVX3n zc4xrIw9p1ozpeNtCQRsME RzqMCLBNEhV9ClxVxzOp8u dHk2qRyqEdkbHGG4Kyd3AW 4pib62kln6tCheZGFbbfca LaF6RSdxKPYgyfkpUIs1KE exXIZosTR1EUFkmJLoJ1Ej HTYbET3wkno6MGE5MRiwHR QtWfX0JDLkaWYpWGPxeGgv IOvzz757XDD6PmFhTZ2rK2 Lvi9B5pK1vjUPnUFXjtMAm UfDjGDIznu7yaFDiCDtrc8 GaCWB7lnJ0oOYpfEUdWQEy FI80Zglkt1IkBnljq1NyI8 0riSC1TJgvh6ilBN6xTmY9 rxViFYjwi8gxwI8nRrH6EP phVJ8nJQ9cSKLgsE5bpxyx XHBnYnJkcmhlYWRccGdicm YmWx5fwYekVNO6FRwyA4jf iU9tBfG2TFhbP5bcaN9vSV n7AVpuhHQ5QHGblW7wWE4x yetci5ljNYkmENqtJLRtww V0yhB7HCYzdGSiJ9LfgK2n XYNwVO2powtiy2ytFPM7AJ teWDMqIJV6OmOnGPSpu3Fd xuw2JaPgy6GpoJDfPIfjG4 8dl943WUApymReK4hxdXTg bhtngAPwabrtSZrzvbM2KM RupcYut8CgGIIdHGF7RDxo LRbvtREqLPXmmGmaa1xaE1 RscGFyXHBsYWluXGYxXGZz MjBcbGFuZzEwMzNcaGljaF xrMDsqGkLkFWHmTOqgJ1kw KrVlB9ZqDVFmZhSxzORxH5 ggVGhpcyByZXBvcnQgbWF5 OCnzH9f9FBWczmBokPx5dc ZpPvIsYOAnBZC5IXcgbKWw OMQoi6MkzyehvFEvUs9vyP QkTANteU3pTYWhDVMpXLfy WF5csTv5VVDNtDGpsRSbPp BUWTHcHA27trHxTJIGwzdl b5B0IRsqGHYoy9ZmlVAxK0 yqj3ZpOGObn46jHL8na6S2 u1qsLYD7TU0nf0YgNXWanD VboPUaJCTnt4Rexpohv8Fd MVQrimUno0EoAJUqdgRwbP ZuEBVfyiDooe1ajsMbXFQg BEOrI0PxrlzpvAxemmJtGX Mikx1guxWjGQO5TKHWEIKt WTGdr7HfgB8vaJMVGWB9zO Gkku4yhdNJtRRwMTJhpr30 NQKdJA7uM0fsRAKbQIQnbf JwtFPws1IsYVPhzFU8jYGe NA6OSpVWy87kNVRkTWUNdp JpITUgkFfgnIZ0vgB0lS7c IChGREEpLlx+IFRoZSBGRE BdUC2yxfLtz3LbnhZuqXdx TCLbuUUss3DisAQjq1OuaO ndg0QnbFKfqFNaGR1uGYOg clxwYXIgVVRNQiBMYWJvcm D1b9DrPGNjVXMyBQH3pRlf wqr0IMRwsG6jIOExG0bwoq blLOkgOHVaf3CetN3idAES zHWxq6JnvNFqdZTGmODkTV 6ayyQhLWqEYKfMRTM6ctEg XAIaa9DmFKrrY5ihK60jrU bpcSd6kRH7TTW1dU3cGtw+ IFxwYXJccGFyIEFwcHJvcH GnTHWmrMdoubXkL6PfroFg gQ9bbCNvjjAkFK7vPP4uY0 V9fLDqAEIokyVhp7hxDUtq dmUgYmVlbiByZXZpZXdlZC Xzs4NcBUrrTFY2SQukjrRc bmNsdWRpbmcgSCZFLCBTcG GfwGRoJUK1AXejltCwkkMa XL0jvJ4whClouX3guVGuiI Q5oskgFUSzFBXkfQkhHLJt TJ3xyGpfaU8wWvArSyVsZU dbYR2uIKKoV9iqjLEuBPWz HLOkB3ikXvAriL0jnIzwFF xjZjJcZnMyMFxwYXJccGFy XHBsYWluXGYxXGZzMjBcbG FuZzEwMzNcaGljaFxmMVxk YaHmCNInDAjjV1rmZsNzC2 BwYVLjHjZjjLDkM0kzQRwp TRN3VOSeBB6qaDHkBS93yJ Tfj2gcJJzumMlsqs1gL09g jJKhYBjpgDnwLGSny74hp2 KiVGPojtOhho0lHPEanxB3 xM5rATAeiScgTBYljBOvAF Doj3HhPUmmyQQatrKgOBxn JVQvBCXtsUTtivU8sgZmcq BqfpBxQZSleOgsEWVhn3Dd NEQsZIlbh9Axeu0jhAGcTV MtnlPLiOydmWQjdW0wX1Pv XDTtCTTpid1jKMFqiR7kVL sas8ZkxryoDXCsCNRvQPIa qsDiyv5yRYMiwYVGZX0KLR gqwOWqz9CywuAkJ5cFYIQ4 NUQwNjYwMjgxKSBleGNlcH RwDEEmqc96XBIhwV0joBib TZTsdT0enA7qoAgrqO7nSp DaZtTcVQlmYM1wPWMnL2nb rTBrZRZlRFTyC4iaRjUzlM 9jaFxmMVxjZjJcZnMyMFxw YXJ9fQ== Embedded Images (test code = [id number]) [facility] [id number] 19:23:05* Test Item Value Reference Range Interpretation Comme nts Case Report (test code = [id number]) Surgical Pathology ?Case: [id number] ? Authorizing Provider: ?Dominic Keita MD ? [...] HPylori ? Final Diagnosis (test code = [id number]) v1stkQYrGGEja2hoZNArzK FuZzEwMzNcZnRuYmpcdWMx TIyzjzBaWUvqpYhzISB7YW OqSU6apUzxkNn7tXmaPAGy umU8hYCxYRuci9djMBC8f8 snwbbhLRDqZUpvKo3ctOPc lFuxLvGtPRVbHVl2sI02GX AqsA3njUFyRRs2XEFpoXNh lqEwOiUfXJQqzMQarAD6RV WoPS1qbxzsFMwpFEkvIHRe zwB6QUEixCJcJ2GlZHBeEG 0oqswsPNM4VLekFMPpDNU7 JpZdROXxc3Oljfz9JdVldQ FyZFxwbGFpblxmczIwXHBh soLPPmNFLJ9NFVYYQLPQZ0 xGHGKCPF4NXFNVJlbmoOVq YZLmMGBcLRBHDY1XZPWhI1 mRAeGfOU2CEZFoAZGfdBVy KSDenhPBOjPPXZ3RBM9OOC wgQklPUFNZOlxwYXIgICAg VOQtVOgRI0WWRLYuPPAJP4 SROSpPQCvhFn9uYKVUZA3T S2kJU7WHSSXFNT2ZEXagVX TiRGYxYPEmCJ4KAZlhKFCL XA2JKFYPFTRYVCdWFLEKXT PFMBuNTHHJQ9WHZRxSBKRs fhcmSOXfFh7uQ7SWSSGWGQ wgQklPUFNZOlxwYXIgICAg CSZrLQQUW1BLLfTGGO2UK8 6ACQERNFLKHW5JALNKOXuN KD0DSYLAVYZGUIGFT3LsjC FyICAgICAgLSBOTyBFVklE TC5KHDESPmVNEIlFHAOmHD lTRUFTRVxwYXIgICAgICAt HK1QCByaOCZNNK4TWSWAOu dBTklTTVMgSURFTlRJRklF ZEWKKNEGBY5WPn5QBGZJMs xwYXJccGFyfXtccnRmMVxz f8HwT0GcUiPmRYqavpPyPV RjQlujvlenPSMlHZO5dkQs MWWzLDejENBeWOwbLz2ckA JmcYgyJvFuALNwb5ftdpAS VZioNjBrD897ZNYzOOigk0 ckh2HyDZTkdHGwy1D8DVSL vyfqwNc3q2tjJoHkKoK0zK KgQTemJ3byayKlrMVyF9Gh pNGqlKk2sRqaF56fa1T5Tw zhB4lyPZDbSFEyK6VxZK6j DLFrLrg0AMJ2FDW6CFMzPN JcW7ZmFS5gGBHlbMJjSSm7 k9qzbZgmXHLpHES7i4biCP vqknD3DO0xnm3nnWa8e4wu czEgRGVmYXVsdCBQYXJhZ3 DamEheJk9tcYu7vXdwJwug TMS9Ycl4CJ2esd22zlo9kJ nbAZMuzbuuLyH0DZiiWFYq xyucGBq5KGeqVOIxjYH6JT SvfUZjG4XqHIXfVF1yuxa3 AIY1SSogIEOzDdP3QQRhmT HvNPRuqStuKMurp404JBL2 StIpML2uB1Gkx9B8xL9yzO SvCHVufSUzOrRkGSAjje4d lSAcODkbg0HpDHG9yfH6jJ YstQMbRHMiLJ23Nkvzt6At GtqoGML9UYBmolBuj1Wwu6 ojDiHdufCwW2naV0FtEGSx GTNbFSHrIsNuwbUhm5Log0 XvjRGgtLj3s8ccYYAsWYEz tOyfa7anCMN1PURgS2M1uP Acs2inOXwjHCGejCX8zoL2 VZYuwJBtU1WtrU6lYBEcBA 5zudd9y6hcYUK9NCdwHTBi KuO2bhJ4MYOcmCXqIGIquR ulPMzqe896ZEK6AxKgJYNl l8YiM2OegJkrK22ctVyyZ1 1qNNZoxCkxwD2fbVcqcM8o ZjBcZnMyNFxxbFxwbGFpbl xmMVxmczIwXGxhbmcxMDMz YLtsS0vkUyXhVXQpxDzfVK cpv9LtMPPsAWFcRjvlqmWk XHBhciBJIGhhdmUgcGVyc2 9uYWxseSByZXZpZXdlZCBh iNrod8YfS6maJC7zO2UuzS UcxrBgxbAkZKmqIXZdt1g6 fURgoSwme6AmxDDiEZ88ew DfACCnTJJ0FTHfx2xyZA21 eacwAmJucJ98mlQfugZwIE Qtn7ygR1jloZFvy1Xvu7Fy hyAmKGrvu8WdKD5tcFPsvu xpkCV4RHWipHExzsLyqdD2 xSffWVUeeO4jfT5anUbrsO 1wTsVvYzBeJYwaKM3rMZQc C1feyENjXWLxWLFyI1ooDz ZazM3gzAqlGzcledY2TBVk cn19 Clinical Information (test code = [id number]) Shivani Schuler is a 47 year old female with IDA1. Gastric polyp x 6 r/o adenoma2.Duodenal Bx, r/o Celiac disease 3. Gastric Bx r/o HPylori Gross Description (test code = [id number]) x9rqvXAwDIRciDPKVPQ5OB RcTE6nsEbcqOk4gSfbOOJq dhK3yQJuMRujn0uyWVV1k1 zrgaJBJqopDCJkDU3cVLgz FVQbKT1sQsAyBGZmVmYzFE BhcGVydzEyMjQwXHBhcGVy xHH7OFAoWG0grdfbSFuyOX xwOKRvxxL6DQPbnSQeM2We JGWoEJ0sizzcKSS5MTGGSy wpVb4frXRxlQoaYuCtTaDu YXJzZXQwXGZuaWwgQXJpYW p7dS8GSvcoDGD5NGVQLwvq ZvtnpOkpp9VbtMSeHWMjRU xcaWQgNTEwMDAgXFxkYiBP ZqBtPyP1Yrb2FNZ0WzI7WL a5SKJMQGIpMzzqKGJ6AkN9 PNd4NLWmOL3mGBfiwZRfOE hhMxqaFPqgR929OLoxVRHf L6WdE9IiOElcLtNyPDioFC YmFKNjGTruEPPjF0DZUFDh HGG0IaRaRDTvACo9HZmbO5 VZXGKcVPPeAvD8ZBHzBuN2 KHw7ODEXVf4xONgkUtOwHD e3BAA2HUx3OcHwRSAtAcTj THLmXRIpGOnofMZsGU7gzW dmUBDmLM7KMYWdXPcsAYFk RpNzU8QMH9iNSH6iXSvucB JjaFxmczIyXHBhciANClxw CMKhTU6POWUaGYlkXKj8zs IdZSWvAjRsXVYuD51zs3EE w5JwQH5BAXy3hiTqwpthnO 3zLFYodrWfFXqYuQBnjB6b srQPFVawLUVgT2FrluKwAN zlNAXjbx2cwFamKTjhEoTv bGVkIHdpdGggdGhlIHBhdG ncofNtG0I0dsMbVH8mVFJU KXEnnS2bBXFnCEVim9ZbrZ GasRsjC9KwhIDmOhEgk2h7 hYU1NHFiebBzIJAyjJVkVS Ffhg8rOOjmWxNzX6F0VYAx PBMtm49yeFX2mtKmYaIsvG u1uVGsIOW0KR3uiQbeceAw y9b0tD3hVHYsd9O4EZPxy8 O9OKXwedYcaFRvqAWfYUNn BB1tjaFbTN47BKNaQTjqEM shZJG7RYE8QWNusCJgb4cs dggqTl3gHRoqJN5iSAykIX 40CRWwVXukECOnK4DmT4R7 ZZexIWIqQTCstWFyaT1hpc OwhvXlxWi3BEZcCDT2rPPk nBfbGPAhZxthvXF6SDYjJi OnzvPcf4MhwIc6jHIsOAkd FLCqpM3bkO6sGKEqQNHznk ILBcmhSSBrNCoxj4MfAPwx cGljWHNhMzAgDQpcZXBpY0 2aw1SHk9Oni4gmqZkhn7Oh hXNbTT1wrQSzVB8Pe0erGQ FqgZVbFJV8NHdgv4dtLSca EYL3WHGqEuRyTKUfQK8NFt OzOGgoMTt8LOthNLt1VJb0 BJ7WWiPkHGYuHyt9LqO3Vo YnTIm8ZDogUZ4CYWG3AFOj AQYqOSvjNOZ7FHCiEIz0XT IgXFxzcyAzIFxcZmwgXFxu N60vrZJsKRkzFkWbEBfkbI clZJDeHVF6UA6LDRMlUyUh E6PUN1fHRR8cJfenrmCwSS VdtrPHVaubDDAwQL9GBBHo SLkcIHz3leBqWQBmUkFkFK QnN70pf4JIj8JyPJ2JXGx9 owQyvrsarR1gGYPdvyNze3 IzMFxlcGljWHNiMzAgDQpT xJDpbR9tqiUGPBubQNGuX3 TaprWcNGyxRCZxzi5faBlm IGxhYmVsbGVkIHdpdGggdG lsKFMilLvxxoSiY2R0grSc LF5wYBBVKFBlcJ9uKHWdQF JlYHDgKKAynW2lKHJ4j3Og jwLlINWJWTHcuGihHZ53tY BjZWxpYWMgZGlzZWFzZSBh dcXvrmArw43qwrKnf2UhJG 8wmRbtXHaRBHmjVoYfXX1b LXCaqaLbu6BgZI2tNRQzsO RwULKievujrMJvZAk0fZKy BREpAuSnwRpvl5OqZHHhIJ ccPI32auWzJI0dAEwbRU1v MTejVW6qNMEoJJXoLTOvQt SxuHJjJkPcrMEuVjIeO81l ZoHHiWKtj2LqI6mfIQ1ohW MvVmqzaTZqJPMkgSsfz1Bq jQJjJWGfu6GbhZCxNIsaBE 3nHAA0Mx5ucEXuJLXoohB9 g8NjFCrhEODaQotuKILbPY pav9ElDDMrvXBBj4GxJH7Z XHBhciANClxzYTMwXGVwaW FKj5KiVCVRUiqjeEmdQdZe nBOfQwH5RVPjjYOvSRD2BL 8pvZaaNJKeBWa3YIugNSAm J7IfQ1TxUDfvQdHrXShoYT XsUWAxGAivIYHnH9KVZEIc HYX4UlCwWGQkLJb3BLtoZ4 LOZNDlJNHnTiW9FWT0EzW0 YKa3ORVCWm1bMSjwWnQeSF GwSjF5LJx3AfAmXLYaNpCm WHVxSJFqLUuswQKpZU5ixO juDBExFQFtEAC5GMVxiUPZ g6UeKGHmFLraCqVaEHPGYE ARVO5ZUvXOEJWmCgQhoRCp AD0XQSCwtvRtFGlatMeugG 1yyBUyS0okUnMeWscunDow TmVzdERvYzEgDQpcbHRycG FyXGxpbjBccmluMFxzYjMw ZOEyzPTHk1NiKYEMAwIjXQ NpbWVuIEMgaXMgcmVjZWl2 FRZgfP0ySo3kvKJatP2ppX QbXNivBFOdz5o5sKX7hPTc eAP1aPClqVvsOuZfDF6slI KkYVNJPZ38mAAbwzWlSZEh zK1qRKZlRTCbAHD6elymLB DYWUH2kTLpr8D6PKajELL4 cL3frHfiJnUmO7Z4QYTeKJ Isb44rsFQ8kzVvMhLqDBRc md2muJ4sWSnullFpqIcvck Bfx0M8MSVcv3X4OAAgbzTt kKDipBYuAOWqSwS4SPXeAh N2VDAgPBSmiZQdDXXvKC0l VGhlIHNwZWNpbWVuIGlzIG OazKBhwhWxDRGzpb92R5cz CBOjqZ1qm5hoLgXbSLOcIL MloWHggPE8XNOyiA4soC23 imFqkiETLM0bzCDaKS9XHU NiMFxlcGljWHNiMCANClxw ADZxNJrqi2SoRSlqzWfeVL RbVsUsCHvGfAtfYADDQ1kx wQRkXPwhZLYGLPpMD4YRMX 2FRNTmdVWBVHW4MS3rJLzp UTUdL5PjZ0UbajB3j8tykK zlo9QwfJFcBM2stZPwNJ9S XHBhcmQgDQp9 Disclaimer (test code = [id number]) s7jxaRKpTBAev6lsNCWgcP FuZzEwMzNcZnRuYmpcdWMx IIxmafNdHGflt9DoN1UrYv AwMFxhbnNpXGRlZmxhbmcx CLFbPTQ9gmYkVHZiSHhcDY MoCNciPh1ehUPjkJkyGjJl EXRcg8mmqkYNRLbyGxWcH6 52XNMwBVxhq6mlx5AlFLFy gFIij6Y3TIOPdwvgyXg2wV wkT90ks1N9VtdqK0ftHPGz YJHiN8ZdWD8yGUWvNeg4XG L6HKO7MKYiTTWqN6LaTO8k LBHprFMhRYa8i8hxxXpdCS LiCOV7d5ndKAgkuaUkYR3h hd5sgWt0y5aumkTzHRVjCA TpaIMILYSrG4UuhVrmRf3d yBz3tZqvLfejKBT0Vio9ZG 2tza38jiq0lBnsMRFynxjp VwS1UKsyVZBcselvVSm0PR ifLLFucFR4SDXzhQEtM8Tl NYOcTA3shaz5FOZ8DPvoAN FiWcQ9LKVezMKtOJKkjOmr RYegg443FXR2RpLmEU2vR4 Yoy1Z8eV9kpUKnOKBhwSKk ZnGiBVVjcn8opDLoWTgqa8 PcNAV9diO5jJHvjNDgMWHe MZ34Zjoco9RiPngkz6UwO3 0lyNN6SFfxn5kkOW5uYzI1 anPrKYznl1lohS7lVuX4PT piDN9nIB8pCQYneG3dprdx XHBnYnJkcmhlYWRccGdicm ZaTu1xfUscDYM8CJdqR8at aA9dPcY5FXxdC4qkfR5nHC l7WQfqvML5GLBdeX7uMK9t tmeoj2wcJDriYUtpJZQljo F8uzV8UMSadPTyB8WmjC7j NXThPA1caktcd8xjYSD1PI fbAWJyHZV7FiObZQXyp8Tq fqn1MxEvu6KcwEMjYDeqI1 5wa229CRDnjjPgO1rujNVf icshaQApexgrNGmnhlK9AM SjfcWyz8ClCVXqGJQ6NCem IEgeiZThXWCppKrux1osN8 RscGFyXHBsYWluXGYxXGZz MjBcbGFuZzEwMzNcaGljaF qqXGghLsBkULFnLChnM7el VhHgV5TgDYWuMzVbtCLqG8 ggVGhpcyByZXBvcnQgbWF5 FCdpG1l7EGYkqeTemRc5ki ZfVeKbTNNdDPV3VNlnoDCo JRRvk3BiksilaZJwBe2pdE OtCYWetC4uCMNaEJBgAQru IB0tcEy1ISFSwPRtjFFkYe BYDAUtGG23olYsOUWHhrxs q8Z4IYnbBNVot4NxvTUmS6 wfh0WnCXGgw27dIN5tf3Y4 x3zdZBZ4IM6xx2EuJCSpzC MccMSaRYOmu8Sztlmlh4Ev LNNjvxPjf6RiDRLkdjGgaG CoYNRzkbEbzt7ioqKyUNGf DBEmE1YekmpapIanxzXtPE Swvt0uvyQgZYV4EIRBQEIv XJWdm3YzlB6eoUVWSIV6rJ Iipd1vesPFbUJqYMQmnf19 VMRwMI4eJ5npQBPzJQAojz BbfQTob7PbKZWqtSF9cMEy ET3TErHDf39nZDXhRWQBtt OzGTRxmRkijBA0iaV1qK3u IChGREEpLlx+IFRoZSBGRE BtBB4klrWeb1WpjkCqlTwn ZIKfrAQtm0CqkKPvh0SiuZ epy8ImwCTrvIIcCQ6mADWa clxwYXIgVVRNQiBMYWJvcm C1p4IfEKNbUZFiRXZ6ePrd czn2NMWrgJ5zCPCmG5gbzk atXNxxQSAbe0DffA6ioZSY uDDid6SdhCRtqKQIsYWoKU 4wzlHgNIgLRWpYXTY5mnMl YCSlb7SjVEkzU8zbC87xqP oreDi8dTE3TTF3jH7hAkn+ IFxwYXJccGFyIEFwcHJvcH HqADNqxEduvwHuE4VgzgCp nU6pcSSgsiVeQE9mFN0sB1 U2dECnRSCdclEvp0qrOHxj dmUgYmVlbiByZXZpZXdlZC Ejg8HzAAuvFEA8MJdpoiDd bmNsdWRpbmcgSCZFLCBTcG QblHPtXIL8RUudibQwxzZm ML2lzR0odNdnjQ6fbOGltI Z7ispoWLYfOBZbvSobVJJd RI3riBgieN1zRvIsIsHyCJ hvIC1oQCKiM6opwONgJBWo IHHiJ1zkIsGtaB5axPqaCW xjZjJcZnMyMFxwYXJccGFy XHBsYWluXGYxXGZzMjBcbG FuZzEwMzNcaGljaFxmMVxk CqYlBSHkEJvcZ7daZwFzP8 CyVCIqKfEqhXNmC9doOVbs SDF8KSUyHL5ftDSvOA12dF Bko0ckPRquzKibkb1qJ38f lMBeRPrqbEldXPNlz74au8 UoTVKvxoGfbu7rOYWnzmD5 jR0pIQPscWjpJGFxdQGvRJ Cpy5InSJwgdKLfjmXwEUgi FVCeWTVybNTgugP7qfDhfp CmypXaKSVgtNmwNLOuu3Yy TKZuXLssl1Rguz5xsBSgSS UgfvZOmJwpdIEvyY5bA1Ey FBRjWNJbrh1aVXWxhD5aPJ nsq0DejolkTWZxTGTiINOr smQypy4xYTSdjBZALY9WBP tsdLNse4KxaaCsM8dCSHF1 NUQwNjYwMjgxKSBleGNlcH DgLEVbqc35QREzsO5jfYvn AMLwlR7zvI1riEqwpP9wHv OzYgRhASxrRR9gFIVwW3hy wZKwVPYyVSIdR3mdJxFcnI 9jaFxmMVxjZjJcZnMyMFxw YXJ9fQ== Embedded Images (test code = [id number]) [facility] [id number] 19:23:05* Test Item Value Reference Range Interpretation Comme nts Case Report (test code = [id number]) Surgical Pathology ?Case: [id number] ? Authorizing Provider: ?Dominic Keita MD ? [...] HPylori ? Final Diagnosis (test code = [id number]) d0hkvBGmTZEip2jwCBYnbQ FuZzEwMzNcZnRuYmpcdWMx NUeucfIzMCgcyPlyQWF6RF HnAR1ouFxdxUe4wOrgUMHk edT3fBQkKLfvi7cdBKB2k4 bfadhpYMGrRRrcBy2htQBy oVtgBeTvXZGcNDl4kU00DW PhtK1xeEScWPu2SDMhxGOf auEhXaLoMKHdtUUjiUD8VH GkXY1hgvtcOVptGVqtGLKw qaA8NOGsbORtL4OzTWOkWA 9hfwkmTKJ0QXhfHZIhRBF5 LvWwQIHjc1Smaxl9HxPavM FyZFxwbGFpblxmczIwXHBh ckUYJlPLWQ8FEXRGQKERX2 sLCQTALG3RASCOAfimiCOl ODGeHKNuZSDGOE9PELIyL5 eBIhAzTF0APKBuGJXbgNTf PEEsvxHJDoFOPG8ANL8FTB wgQklPUFNZOlxwYXIgICAg XFIbBEkRH6IPWDHqFTMAP1 CUUCgEWJgtUz0lVTXUFC1L X4gVZ5AJZYYWGX4YVFgyKU TbXFQaSBYbNK1MWPiaICFL BZ8PPLYYEJOWALhUNIGYXE VGWDeFKFMTL3VWFZpNHRHj euqjCMBoNk3jD7YKADLROR wgQklPUFNZOlxwYXIgICAg DUTdIBGGR2YWDrXTFW9GG2 5DVVXGYYYVEZ7BANQJKXpT DC6RWPYZBYBOWZEPF2BjmM FyICAgICAgLSBOTyBFVklE GH4CHQVUNfBCHLrAGKTuIV lTRUFTRVxwYXIgICAgICAt SD7KJCmmNUZMEH3XYFZMOx dBTklTTVMgSURFTlRJRklF DMLBRCILKS0OAk9BVKBHAu xwYXJccGFyfXtccnRmMVxz n5JzL0NkStLhURxghxNfQL ZsTmguawxdTFHpGQF4rcMz XWXyGPacHFGjYDhuFz4vjL IjeDabCnMpWUZxj3mtnnLK RAmcUxExP916GKZqOElct4 bfi4AmEHGsyNDke4F7APXV vfmjxDb1i6rqScOzFbG5zK BeLRrtX2lzgfLgpMPdQ8Qn gIHwzRk0zVhvF40xw2U9Ob gqB0juDBSpOGUoU0SqKI9p DWFpCjs3UYE5STM4FDJfLP JcL4TlNM8hQTSqzWNdBPx6 b7cowCqcQDCdTDT6f3hwTW xnqvU6RY9iay2zmRo4x8ha czEgRGVmYXVsdCBQYXJhZ3 AtpBzwGq4shHo8rJvyYbtb OAA5Zfq6IE9bml43qdj9nG gjFVKewllyMdE4PAchOETr dkqeQBm5ENxlGPCqhDM1EQ VwdNHwU0PxEULfJK5eqmk0 WUM1PSedXCHaJfM8TTEaoH OrPYBzrGkzNMfyo157UMS0 AqYcNG9jW4Tmx9S2aM8ojW MvFIImyCRdScLtWVImcg0l lYOmMFule6FtEAV4wmF0gX AkrMGvPSRcSR82Xlraq2Kq CeyrOCX8NYKusqBrl4Xap3 nbFoJbfvHlH2hjG1NwSTGj QMPpHHCiNxWbaaIfo2Bsp8 KpfMFyjLz1x0wlFNTfLKEx tYusa2zuPXK2FYErP8Z8uK Iij7ndVPyqNPEhzOS5alW9 XFKrzRSjU4ZjfY9eHRPuUS 7wcwc8c1mlDIR7ESvoBOFh OqV3daT7VWBjbFWiUGHyvY mmOGxkz626BQK0JaRxCKVg w8DvB7KudTlnU41kuXdrV0 7rDCNxaTyybB1viZryaL0m ZjBcZnMyNFxxbFxwbGFpbl xmMVxmczIwXGxhbmcxMDMz IYtzB3svFiKnZOKknElfJI apw5IoUSZdMWIeCtwtqkLp XHBhciBJIGhhdmUgcGVyc2 9uYWxseSByZXZpZXdlZCBh yRzpf7JiY2doGQ7jT1LzpZ FmdtMlquXtRCijQVDhh5y3 zQYyeUpri6HecQMuOS82hd XxWLVnGOP4ARQhr3oxRQ24 znluKlOwtB23vrAjbnNlAV Bvt7pcZ2dwuTRwg7Xrk2By zjImWQjbk0VgHM7mgIIypo fklBS5LFMvsXTaqxTqjjH6 pIwaGMEnsD8dfE9ghWkoyB 2cRvVqTcUrHGzyIN1gPEGm S4xtgLSlLXIzXUHhW4zdBt OokE6emQfwCasioeT5YVFg cn19 Clinical Information (test code = [id number]) Shivani Schuler is a 47 year old female with IDA1. Gastric polyp x 6 r/o adenoma2.Duodenal Bx, r/o Celiac disease 3. Gastric Bx r/o HPylori Gross Description (test code = [id number]) e7vqcGPbEIGnoRINHTA4XT TiQO4xbRpglLu7wCdlOKRz ipY9jQQeEYszh0pzNCD3u9 gbprECLpwgGNLcGJ4uMQds LBYzFZ9eYwLyMWIfPdZfWT BhcGVydzEyMjQwXHBhcGVy uBQ5CMTnVA4cdygxYJywXV hhCRDpxfO6MTNbiPHpI2Xa ITFaYX8gryzfHBP5ITWGWp psQf3tzFMpjGiiTcXvKoMk YXJzZXQwXGZuaWwgQXJpYW e4oC5XManzNGA2NFIVZljm XzccmDzfi2HezLZiTPSgQR xcaWQgNTEwMDAgXFxkYiBP EhNqRjO2Gkp3RPX3GsI6GW q7KGSUYNOsFoopUIK7PoM1 OOs0BHGyQD5iTCdtsDNzWW zwZoraYAseI475GHbdAQJo A4KzN0BlRCsjSsNkCZasKW RrIAYnNNliRHZiS1JZZTFm SIZ9EoJlLVVxHKs5OUuwG1 DAJBUgQQEzXlK2VOGaRdN7 VXy1EEXDLq0xYRrfDlAlUS s3LGT7CJu2HkKaEQRsJwEg XYZzSBMdUKlyrRXqCS2pvU ozEAVkZO6RITEtFPaxUHHp SqGaT4OLQ9gHKT4dGIqksM JjaFxmczIyXHBhciANClxw MSSbTO0ORNBuRCxfUHx0tn PaUJVyJuIiIADwJ39cs4HC i7XcYW8IPWf4xrTcfmlqgB 8oOBPathLgOAeKiVQscO2p foHZILcqIOGpP5XhwkPmZF wwILYafl5gkFcaENwzAjRs bGVkIHdpdGggdGhlIHBhdG frzbAqT3Y6ymPdOJ5yCNXD HAOyiN2pPUVfPWEpo4RbbQ ScmBguR2PsdUVnEzWtq3s9 sJK4QZVaxxTrBSVnrLZwGP Mdjl1cOCitOlJiE2N4PQWs ZETug67noEE5etZxQvNqlC t3iSZaVBD3RA4vgWiyojMi w7d9nJ8qXCZpn6H7TGPyb1 S1HBDaeoLcfUIjhGLdOIGi ZG4wfsGuPT31PIIwAVxoMQ xjHJF8EOJ2VFKxxPUfv3jm abciZc4oOCqaYD2hWPskMH 42ISPmIRbeYGVhI4HrV1X3 BEncDLTeGJOqvMGpkX7adt HzlsRhgGv5ZPSsIIT1wNRv tMajYLDhExxnxMW7NPAzMh GpoqCln7WwlYq8oJAaHSkv AXHlaR6zdM5oMTMnLQXnuy MKLadmBMTkQRdhh3EmIQbl cGljWHNhMzAgDQpcZXBpY0 2zk3TOi5Gla9amvAkvl9Nt yFStLY6idGOtTT8Cw6gbHC ApwPCwWAC7ZZkar9vjSVhi BPO9EOZmPhDzYOQhFF1PHg QuXUbqYAn9YDahNFt1SRt9 CN3OXiQiJOPuApv5UpM7Jk ScSTs9PQevAC6MUCG3ETVs NHZuIGlhBMQ8MFRvIMr6IC IgXFxzcyAzIFxcZmwgXFxu X55vuGBmDQtwKxOxXTiuzR tbPYJnYPK0TT1JWJWdDuCo E5NQA8nPNU9cKvofcrMkHF GbyiROZlmtYGLeHL4HRTZm LPttHIv5gyGiUBRwMcCsFE OyX43jd0AAc5TfSK3AKKu5 ytNfpqrztJ8aALMqktIdb7 IzMFxlcGljWHNiMzAgDQpT oSKkjI4temLFCWrzZOYhO3 RjthFiWGxlBMUqnd4ocDvt IGxhYmVsbGVkIHdpdGggdG olDJEqnRkxoqQlT0C7adOu EB7hDNLAPWIkuZ2wCRJeRL VkSVFhLHQesL7pPSI7c2Hp ckEvGXMMXCYugIzpGE45uN BjZWxpYWMgZGlzZWFzZSBh oaJsyuQvz13toqBwn2PmKD 6zcQkvAVdXLWkdQdPbVO9w UDYkweDqm0OjLW0vXPZhbK WtUHYpirtleYZwRIk9fRYt LTMmQyQpiEsyd3ZzZELmVO ucFY74qnPqQW3fDEduEX6j XRpjDT5iPBRzJDRaUXUnEd RuzNOvBbWobARlFnHzT82u TzBVxJWit6CvA6paWM1hpO TlQadyvXKlEXLwiYrwc1Tg gCZcSCLam7JpiBArUKgkUU 1pZJJ8Cm9hnHIhRWNxoaV8 o0ElTBmfDBCcPwbsMIPvJF uza5BqAOZduMDTh2XgDO6P XHBhciANClxzYTMwXGVwaW WOr2JpFWPXSineyCqtPeXd kIGmEbY5KDCisDGmOAR2EU 0eoSqbKDPmCRb6JVmcHCIc P8NcF8XvMFmjFaRiXIorMU EjLQDuEHybBHYqV4MOSKCg TAX8HiWoCLRbGAn6MNihK4 HRZSMiRFHpTmN1HRD5CgJ5 NMy6UPQCOc8sLVogGnVdJG KtZbG3NIz1HsLoCXDoMoJv VBGqBZAsSEzbxYBgYU1qsG tjDFZbFAHyKDF5MYLolCKN e8PcYUZnBJflVyAaVFPCJQ ZTLH2VUnMZWBOvKmXixBEy DT9KIUGqbeYzENsilHjjuB 7khFLxM7dzBrTeFplqdCke TmVzdERvYzEgDQpcbHRycG FyXGxpbjBccmluMFxzYjMw WUXkpCAMf7IgQCBGOxPoJW NpbWVuIEMgaXMgcmVjZWl2 PKNglM0kHx8sxZVepC0tmY WcYYsvDWQfp1j0gFY8qBZe hTD3fHNzrFonHwMbWL8odZ HxVEEKDW27rGVofiGlPQNf tH5xMUKoKMZbHSQ1xaelMM MLPHO7fXKbk6A1XMjtBAN6 sR6ovQidVlAsE9Z3DJRaWG Jzm22enDV1idYmHpCzPPVj zk3euC2zJEppihUrlWvhka Uar0B2PHDvs1A8RVZinnAe dVRkpLNbMMAbIaE6MUHoJw V0QCZiDQWcsNFvUMLiNR4l VGhlIHNwZWNpbWVuIGlzIG ZbnQQubtTkIGMjkf09W2fp HTXjaP4kz8beCaJnGIUeBE NgvBBrzJY2DKBzzO9smK81 llZspxLDCP4voJKyWR9WAJ NiMFxlcGljWHNiMCANClxw XQLjYBntx5RoYWvtsPvxCV AoUnGlZRzDzFveIIJGJ3zj lMTcZYqjWDXHOCzRI3ONZF 2ZTDBrqBYCFYM1JI5lYFix ZKKiL7AoK1EeojG2u5yguV xsf2HkhAImYH2hhYNwGP3B XHBhcmQgDQp9 Disclaimer (test code = [id number]) b5gacPUvACFmd4cmTOBriN FuZzEwMzNcZnRuYmpcdWMx ONtkyrFrEQhqh4ReB5WtGo AwMFxhbnNpXGRlZmxhbmcx PXMcJXA3tlFlTMLwRWvwWK IyYPkqQv1vgPBlqAynPsOs HLUpt1wdleYJPBlvZiSgO5 04UYVoBBshe0kdj1SrWJZg aFXxi0Z3YPRWcayooQi9dU hhY35xg5A8RcgoG5eyMSMo PSDfA7XhFQ8pYLKwKdc5GG U9HMV4RNZdEJHwX5GcAD7i NDUeyWDoIAx2k8tsyIeuFZ BiCSX2e5lrPMlsklJwQL0a xn0muAb1f3drcuXoVTBsOD EhnQEWTBAxR1ZttMxoWe4v vMk5yLgyHxorKQW8Vtk0PH 7gew60fkm5wYewRVXkvbcj IfE3ZJdkPFRlbqvtTSs0QA rkGKPdcAM3QQUxtEZtW9Ul JSJvHO2mjrc0HJJ5XWvbQS XwDaM6PICtkFWcRDDxyOqd CTbwz643MSP2FhKtUJ6vU1 Tfd1W3tJ4qyYApQMRhdLFc KgMgVTLvnh4xeEFrNMjop0 PsOYR3ntR9jHBkxGPqSCXd LQ90Nrcxj4XvWzzsx9IqH3 8vaLK1YJeui2mcQL9qZkO8 ozQyQBsmr6wpvN5eWyT6RI txMU9lPE3aZODrnB3fpqjx XHBnYnJkcmhlYWRccGdicm DjZj3knOthCML3KKdeG1tw lX0bImZ8TPjgO5iyfL9hER c6OWdovCW5KYLlbA8rXY6n grcyz6xhRRbxSUwyKMQqwm Z1hgX3BGDddGGxZ1TqnB2f OWUcDR1squaub6cwDXL6MT paBAQcKEO5WbLwVSOls7Qc jpv2GcVfl0GxcQHkWLqsO0 6yb971XZAqhoKsP7nhxOVj kfpzlMLgkdipPUhdmcT8VM SxauSzw0VlEDRvITR8LHgt RXwahMJyEYWknSvih5giQ7 RscGFyXHBsYWluXGYxXGZz MjBcbGFuZzEwMzNcaGljaF jeSNmqMjPiJHCiGTdrW8ot VfEbZ1BtEFEaGwMvsXRtJ0 ggVGhpcyByZXBvcnQgbWF5 GLlnG0h7VECyhxXmhHz8mw NeUhUxNEJwYLT3HCxpfRSt OHUmm3DedwxdlLMsSz2ilK ArPQVhzE7tLOZgQVToSBic MZ9dhJu9UDKVpJFhsTJiVa ZFOZOyLA24joQzMYTGygcm n7C1TDwkDVUkr1IbwFRjW2 why6FhJELul07lSS2cy3V6 p3opSVI4XO1di0XbQZXjoF QtzSRcANGht9Qlqeibu1Cp UDRhseCvq4KsDFBazyNmvN KtREBthpVlcc4teaHqYOMz BJQoH9XcubuagAocwoQzOG Ppco0flbKwRNX9ZMWPIIRr RGVdo6GtsZ3wiSEQASA9eC Vfdq3ffkIWzPMtGANxiy82 ETNrDW9gH3gdCOWbNJQfcp VtkMHuq9EhTJDerXU8kAVd VI6WQdILl79fHJNeJSTNgq FePHGagYwadJN9kwO7yR6g IChGREEpLlx+IFRoZSBGRE WaZZ0iyfTtm8MulkXchKqa JXXpkHMan9TqxVZga1AidI abe0FykFIqpQBfLQ1dGBGj clxwYXIgVVRNQiBMYWJvcm F0a3UuTFPeYIHePVU5fBao fbx0PEUwtL6yHTHtQ0tzuj jzDKksYPAqe5QewJ6mcBKF mDBcv6PkuYPnkIFLqXAbHA 3rqpAlICuDAFkRSWC6vbBc MNWjw1NgYUveG1ncF55uuP xntWv4bGX7VUJ2oU3sYri+ IFxwYXJccGFyIEFwcHJvcH MnZJXqhSiptiGmF1SpwdVj xL2fsJCqejPwAF8kDS6eC3 M7zYCjPVJeuwNoa4qmDMre dmUgYmVlbiByZXZpZXdlZC Cvm6PuPYdsLXG3DHygxvPa bmNsdWRpbmcgSCZFLCBTcG PflXIyGUM5EWdvjrVqqdKi IG1koM0kbNavyT6hrMOhcS H1sddoEHVmLZIvmZqsOFLl IJ3upTjbmZ0zYmEbJiPdYO wjCZ3oAADuG0lrdKYeWDPm SIXbP6cdOjHfmN1riCokFH xjZjJcZnMyMFxwYXJccGFy XHBsYWluXGYxXGZzMjBcbG FuZzEwMzNcaGljaFxmMVxk DpBlULCxFFhxS3qvIlZdL1 RxBCQqBpJlnYDuN9gcLLur HZN3KJYtJT9faTTdTJ48iD Xug7plUHnmdPnxpf3rD14v kHNmBZlabFurRUCgp15nn7 DiOGKsgtCdun1aCCGjupO6 aJ3rPCNvtLuxWJGdyEGmZT Ckz0IzMUkflZUyyyTjBDbh LRHbSAWwhCIoozT8rzVoyp GymzThCNBduDmcEBFcu4Qw TUPmUUamh3Aayz3meKXtBX KlfuCWsMvdbWVkeG2xB9Fi ALTpESZzkz5gTDLhtC9yUK zwq7PrlywoPJYbZBXePYWk vbKooe4cGAAuxITUEX6FFS hzfEQvj7UetqChY8cLXBC1 NUQwNjYwMjgxKSBleGNlcH JrSVJzuq08HQMcxZ7vrJpg QEBwbG8usT5tyKpkmV7mFl LmUpQcTHdjHL0gDKEdG2xp gXWvPYLjHWUcR3qdUtCnzX 9jaFxmMVxjZjJcZnMyMFxw YXJ9fQ== Embedded Images (test code = [id number]) [facility] [id number] 19:23:05* Test Item Value Reference Range Interpretation Comme nts Case Report (test code = [id number]) Surgical Pathology ?Case: [id number] ? Authorizing Provider: ?Dominic Keita MD ? [...] HPylori ? Final Diagnosis (test code = [id number]) m2ifjVUqJKGwk8foQEMmnR FuZzEwMzNcZnRuYmpcdWMx KNkcvqIdKWqimHujSFV4EQ UpIT6fwSrliAm6sCneFSJb tuQ8gGFmOIssi1tgGWM6f8 lujaqpNZIzXOeoDu8vgIXw eJbxAyYgQXQvVOc7nZ18WL HogE7lpKNqOZz1MHBttDBm chWtHiZlIVHfyHMbyWQ9UZ OmQK5matwfQEqtHXqtAKQf wxD3XPTewKErT7AfYTAcFN 0hxknyOOY2MLuaFAXeBYK0 WmOjSNXik7Yizzf2VtDmzK FyZFxwbGFpblxmczIwXHBh onGIMjRFRU8YCKQFQURDY5 aLOZPIZN5KYRMAQccycTKx BZPoCULzHCUZCY8GIGTxP0 xPBuPmHJ5DJXSnMDBlxDMp XRLzuzHMNfARXU4QIL6NWI wgQklPUFNZOlxwYXIgICAg JHCyIEfMS3QWZOCaDMAQX8 QPOChZDIqsMj1iPXYTWJ7B J9oKP8TAAHNPVB6MHNdpQD AyISNvUXOuTJ9YVTntBTOE VV9FBJDCLCYGNKcYMXQOQI PUVTpQVBAJC6FMDKnSANZy wqpvUGZzJm7hK9XROCDQGX wgQklPUFNZOlxwYXIgICAg SKAdRVAWA6MROmKUFG3BP6 1WJYQEUDPGYV4PBDACRSnI ZJ3XEFPXTDCWIMBQV4ManM FyICAgICAgLSBOTyBFVklE LI4QPYRWSkUCUHzCIFPjBD lTRUFTRVxwYXIgICAgICAt GP3YYDexZURJLM6DBAFCOt dBTklTTVMgSURFTlRJRklF IQMVJLGBFH9SSg8ICPJZXg xwYXJccGFyfXtccnRmMVxz y5MqH7GdSiWsCDnsljVpHU JsDceifigjICPtDMG6hpYb YXXmIKhnPNGaZWvmTo8ahF PeeFqwJgAbNHLxb2fsvdIC JAnmBqCwG846EZDjWXvqp9 equ3AkXFEtkHYes5F2NNXN kjvmdQu8v0slUbLqCxO5zQ WyJNkuJ9ipalLpiDOoU4Kt tDYglYl0gDrbB47rs5H1Zp vkL6qcSZIoPZUvH0HfNN4p HVSlCph0OHB9GKH4LVMhRR AsT2RhMB6oHKKqrZVeNWs4 c2uimHmwWQWeWGV4j2ygMS hrcnV9JM6bhi7nvUl0t1ze czEgRGVmYXVsdCBQYXJhZ3 MolZunLp9djKb1oCpgNinb FGK0Umn7NX6xmr37hoj8rQ ozTKNnlzfuDmB1GUjyPFPi vsshGZl7XFdnACLqgAK3QS CsrYGbZ6QlFFHzSJ8lnrc7 VFY4KHxmGCZrUeI2PRLafA DhJIQosIghRFzct686BMJ5 XfQdXQ0hY8Pxc6P2iR4rzF SxYDDszLHeJsMaKSJqrp4l aLDdHRdlc8WaUZC2iuQ7yP RzlXEvKXWfGH79Trtim5Ia LhayFDI2NLDmokSgs9Rtj3 jqWaPtiwPfW8auN2GuGSAm CFSqMSSbZoZxjhVqd4Lpg4 SysYMtdHx3i6xhHPClFDMl wEczm9oqIYU0JLMjV2A5tD Jde0vjXBzsTFMjrYH2brN9 KEWzzMQhV6KqcZ3aLXSxDP 3ggpp6j4hzNDD6JTwrCFWk NdX0wmX5BCWdrWKbYOOhmN fyKIcud165FZT6RmZfSNZl a5BxN4EtxWucD10mkXpeR0 5iHJSnqVjhyF0ijQrqwW5g ZjBcZnMyNFxxbFxwbGFpbl xmMVxmczIwXGxhbmcxMDMz PCtxS2awBxAiNOYtrPaqHC hoi6HiTGVlJCJfHpfdnkMx XHBhciBJIGhhdmUgcGVyc2 9uYWxseSByZXZpZXdlZCBh kBcsz0AlF0hiBT9eR1NemN IxwwVzhoAnHTvzPGAua5e9 iFEutHxqd5XyvCMpPN28tu CtOQUuXZK4JRSbb7idBO51 rdaiSwHssN73fmCsorOiCP Eio6luL8xgbXEgv6Ujj8Nq vsPqHLwyj3RsNP5xjIOqrw clgWG6PQFanXZlaiTlspS6 mTcnIPJriV3zaE5fmGhzuF 0mHjVpMyVhLAqxTK3mTISz N5rtgLDnZIMyOSCkS5hjIj ZehO6aeDgfNdwolfJ3XCAv cn19 Clinical Information (test code = 8402161863) Shivani Schuler is a 47 year old female with IDA1. Gastric polyp x 6 r/o adenoma2.Duodenal Bx, r/o Celiac disease 3. Gastric Bx r/o HPylori Gross Description (test code = 5955031746) t9jfoYCgQAYpcNUOEFQ3YN ElTB3pbKbacYr5rVbpUSHy kxU1mJGjYImgp8xcOSZ1d0 svdlQWKxlfPDSdOO2rDNrk RQUxDN5cIpEzMNQdAsFkSS BhcGVydzEyMjQwXHBhcGVy bAZ6GQXvTF9pawiqEQaqME iyRHLqlbM9LMIjbZTdU7Ge HROnWX3cdyycYZV0PNGGYx bxEk5unIYexMntBmFyEeTf YXJzZXQwXGZuaWwgQXJpYW r9gI4QQhgyADK4GDOLKvky ImoanDksy1BncZDgVBEkMC xcaWQgNTEwMDAgXFxkYiBP NsDbNmY3Kun5WEN7BuG8XL y1NSWPXRQdSxkqRWN3VlI8 PAq6OQByZD7rXRygcWTqYM aeOcrxQTasJ770GCczRMGa W9QbV0KjIIjlZzPyMFttRW VmFZHsQLvlPBPtN1PVTLRc ZDD1OfIcOXSbHIu5SOiiN9 KNNWRgADItTnY8XCGnScK2 ITo9SUCEZw6pDUncUkPbNX w0AJQ3MEb1QtQxIWTjGlGl RLIrYHGoIYlfeHQbMI1hzH ijNZYjJO5PGIRbVObyDQCi AkEwI0ZYK9pHFN7zQYsedR JjaFxmczIyXHBhciANClxw VLGjXI8HYSBlKIzdROv9si LnOLWxPiOrNAQsZ60dr7RC q4UaZW1UVOm2zfJoyuvttE 1hVZDhylKiUQkAtRSvsV5b veMKHIhhKOElN9YdowBxTA veSOSnpa9meOctIYoqQfLf bGVkIHdpdGggdGhlIHBhdG yrurVsM2D9ghJkDU2kCCQJ NZWvcE1mPHGtXSUoa1KnwM KgbWpgU9WooZQhTkZjy2q1 pSB5DVEprwGzZKPboIApPN Zkyp0xDRcgCsUaS1I3MLRi FLHjk17roOI9qtKzUyNjlW i6cDFcNRG1EH9hqJmdsvXk j4v5hS9eTMStt4L9VPVlg1 Y0DVRbaeIepOIplPHpERDp SA6jbiRyGJ00TMHdUBjzFU kvOIE2LES2AHMkdBWxk5co klczXf8hVQkfHQ5aEUqjAH 54OTToPYghJTAoO6EfI5I2 DTdoKQLxVEMfoPEmiL5vql PwipGkyWu4SJQbVIF8wVZo fKwiXYPuYeptvIZ0QMYmVt HbyaTue7VvbWf4nAGuAFva DGAhwH4zhY8gARBuZKGksq XXAflgTILcKLvnl2AbKHwd cGljWHNhMzAgDQpcZXBpY0 1vm8FVp8Vmi1eudBuuy4Oz rBMuBW7fnGMdON6Rf9vfFO TmaBMhBAG1MPtof9ajINah DAA2KOFdZjJuOUSlEP0HLr BkINonJQr1RXpyBNk2VQh3 MB3YEoZjSWEqRhc3BqR0Gl DzJBz5KYkqCA0NJWK8TLYt PDNzZWqyGUO5GXPnGGc7HR IgXFxzcyAzIFxcZmwgXFxu V82boIWtVJxkAwKcBJpkjE dtJCAfZKB6SV1NDFCvVmHj Y0UVJ2mLGS5hKxphdoSrDB ApflIEFglrIABqUD8PSMXh BYngHUt8cuRaCYFjVaZgUO JuY36wd5HOt8DbYJ1LERz7 fwOadrrymS2wMLJmzkMbd9 IzMFxlcGljWHNiMzAgDQpT uXTjtC2mqwJSGJwhGPGvS0 PvzkWqVQahEKSygb7urUov IGxhYmVsbGVkIHdpdGggdG xrQWOmjXhpgqFzY9C0epRd CJ1hYIITUPMicI5bFMBdID HlHTBdSIYxeL8yNRK7k7Me xqWoKNECIHRnqPnmVC04dO BjZWxpYWMgZGlzZWFzZSBh cfHsesGnf94dntEiv1UnXO 8xlYuxBZxSUXmbHeUyOD4k SZLwqwMck0UmPO3bGGPrwD GpTDKlagtbwVFjIOp1nVNs GBKzIuUrtHodu6SnQKBxJL wkML95vyVpXB2rVTuaGL1o PKmzON8yPQEvUQYnGQMyPg LbmGWxMxQavIFeFaYoS47f YjNBsYQax4SmU3izSY2hhC LbYbirrAEqCYWytModq9Kf bVNgTSTwu6BaaYSuEJjzUP 2pZZR1Bl3gwOVqUAMeqeR0 h1KoJZmtZJRgYscaNGLnOY ayl8BuQIRhcZSBx2NlVI9W XHBhciANClxzYTMwXGVwaW XHu9YfILJBDfdzuXpaFeGv pCXpJwA4GYPssNNfBYO5FZ 2aiVnuXMRyRGp0XZwsTBGn P7BuG8LhGXbuUkSdVHwpVG IbYRSwYKreZCLaN6RAUXCh PVY4BfAtFNEtTQy4GCpbX4 CYMCMpLKLyKlR1III8CjD3 RZq9TMXMNk5mBUbpSwWxDQ FyLaV3AIh0TqIaWHZlXsGu CNXtVFIaPMwzcCSbDL1jfF duPFPbVRBpWVD2ZHAxqAAG d3GrFISuDYfdBkCrOCSARO TQLL7BYaVNXMPuSqAazXOt BD5THMHzgkVcILplaCoxnG 5omJXqH6ltGqLdIxgnxRgw TmVzdERvYzEgDQpcbHRycG FyXGxpbjBccmluMFxzYjMw WPXqtNPWy0QqRPBEZhJfTA NpbWVuIEMgaXMgcmVjZWl2 TZZkqL0hNp7ovCKnsR8puS GrMNmaBDWse0q7hBR3lGRd eVV3wTMrcWksJaTvZR5fhP JuWRZFAJ01nOQxtaZlWIDn hQ9dFNWuRNWyGOS7tbtbDR UOXCC7wCZcu7C5EInwCHS5 iD3rqWhsCrIuX4Y3NRKeIN Yus15mtUK1ppBpXuVjYSIn qo5qpA4aGUxnkaZfaXojqn Wnu9X2AHQme4P5IRXampKi pHVeiKJmLNSkIzP1HCXiWz U3ILYdLGYduNNfKGHpPJ4r VGhlIHNwZWNpbWVuIGlzIG PgwPEaysMiPWOzsq23I1fx MVDfvJ7uy3byFfQhRHTwFC VieHIihFW6WGLhqF8cmN38 wbCeohHTEQ7ihVTeOH3HXZ NiMFxlcGljWHNiMCANClxw HTYySWxka4LgQRvatInjIY LbPzQhCOfNgOsvXVTWU7ru wZXiBJatDKROTMoYS2BVXX 3XADSdtZPPLRD2SP9sNAtf RJYwO2YgN9BtsjB2o1cujA yer4OkqXBjOR0djSBoSQ6W XHBhcmQgDQp9 Disclaimer (test code = [id number]) e7adcSUbPDPmx4kmGEPfnR FuZzEwMzNcZnRuYmpcdWMx YTwfyoEsRWpmy7MkM3QqHb AwMFxhbnNpXGRlZmxhbmcx ZFAiQXW0nxIpGQTlGYttYC DwSUvxFt8ueNLhkJsrKmUh ZAZnc3ebilCQUUaiCrSyG9 31EPVaYKizy2lfc6PfOLSp qHIou1U8TYMNqlqpaAy0qJ uvT80qh1V3GpcpJ4abRYLs BTSiH3PyUO9qWVBjAot9BB L0GNB8HQFfJOSuQ3PtNS5p NDXktCZyRXs5x8zhnWgaTV ZpMMW1t6ggIQecpkElFN7x yz7gzFh2r3gabgXfOHAhEX CluHBOHERzG3SagDebHa2p cRp7kNcqHzkjLCM8Tok9NM 9bdx85jzp7oYqaFPPqesvs NaA4JFpvGVVeqfvyQWj1IC byMZMbyXD4WEXpnXVbD0Fr GHAcCA8vvlt1SEJ6AYzmGR WfCqA3FVIcnSQiOAUmfJso XJakn413JHY7DhRpFE1dB0 Tpl0H2qB1lhYFmDOIxyQLh SfUgHFTejk4phUFyUDgik2 EkIQV5ugF7fGVsfNJmSEYr TH30Skbqf8LmPtxgx7CcH6 3phST0IYjlq1kxJC1kWnS0 gzHaXXmqe3vuvU4vBwC2SK riPE9wEQ0hDPJpnH6oetnq XHBnYnJkcmhlYWRccGdicm WyYv2gaRbnNSU0NCdfP4wy hG6gZuS9WQyrA2bqiQ9wBH i1CKzzkJY6XMDvwN6cPB9j bejvs1enUSrwBFhuJOGrkd G4ecO6DTAwqJKlX6MtgB2c AETcGK8yulzzv7aeNOC9IO tpXWSzJVE7YqUgTFAqk4Wh prb5HzXmb3HwiQBeJEigC3 6nd898LFRtwtOrY3nxcDGf rxuyjPPxvqfqCKavvzJ6PQ XfstAtu4BvVVXbQZL9NJxw NJdjbZUeBSJppSbdd8oxG2 RscGFyXHBsYWluXGYxXGZz MjBcbGFuZzEwMzNcaGljaF izLBqnDpNrUHGnFBziG9fi DfFgK6FnLSGvMaIsnKUeX1 ggVGhpcyByZXBvcnQgbWF5 ZKdnG0g7ZZLnkhTivHx6ri AdBkDsRCUkDQT7XHttuUHa SLWau7TzoyzljGOuBt7ouT OeVGGyhB4sKRJxAVNrCZwd UU7hfNb0QPYAbKRuoHEeXv FWEORxWY08tiRfBGXHykpz w0S0URcdVHKmf1RhbOSjO1 atq5LvFYAqs19tSK9au5J6 g0wyQWG6DE9jy0LyKSGxnU IjyQYaRBQco7Cogulcc9Sq EBIxatBsb6NwOFWidoXlxO FdJBZidsLefi5bczYcJFHo HSNqK3OsezfnhZevviKzEJ Cqji4rfjElWTL0WKXGBKOx RSNar7AbdY0grVQVTAX3gM Rcke6pebHWfQApFKMidk36 ZXVcON8aY6ptEOGsBGWztl EpvTPza1SaGDMlmLK5aZIq NG9CMuRGv53vTHXvSDLPoe OcRQHhkKnvaTG9ucQ4pI0t IChGREEpLlx+IFRoZSBGRE QbYL5kxyJjr8QxwdLujGfg ADJunSAcf3TtyNNgx3IczC imp9VxhOKgxDPiYR7hVGAk clxwYXIgVVRNQiBMYWJvcm G9x2SnJOJkHPUtDNQ2jJux xzc3BSYyxW9nKMPlM6snjg udZOfqMIJkw4PwfZ2nwZDJ tVZos1KqiZSdwDAZwJLeMZ 1nnhApVOpATUiJGWO7pkAh QDYkq0UsMXtuC4eiY00whA rbxXb0fYG1ABP2dC8qIjr+ IFxwYXJccGFyIEFwcHJvcH VxJCRdgRyuexSwE6AmyjOo lV4ssZIbljBgPW7kUO5cO3 L1hKQrSTCgtpLan4bpWYmt dmUgYmVlbiByZXZpZXdlZC Ehq7MrRVcfOWR0SQbgxiIu bmNsdWRpbmcgSCZFLCBTcG ZcpLMfBOJ6MTykahPpsxZx DJ2euK5pxKnvoZ5brRQutA J8cuplDGJpXBVurJchBJBa WX2euZkaiK2lKxGlLbYjHZ paGL3rBLMtA5qbqXEnTOVh VPCnW2wtOqPbpM9vnRkoBQ xjZjJcZnMyMFxwYXJccGFy XHBsYWluXGYxXGZzMjBcbG FuZzEwMzNcaGljaFxmMVxk NfQnZBUnZBpwU4noPfJdM6 MmHJCuZaMziKFoZ6ldURou JZT8HIOjWS4hfULgTM99iZ Nov3ijOOyibMpdbc3xD52c cXTbTLsunRyxIISns04lf8 EjGFGwllVkmd2nVIIzhmF8 uP9aOHBlwUadWTRbjFRoCL Pwo2RaTNwcyJFrmzLtURcf IALtFOHkjUVqzsY5rxWqpm ApgvEtGSPwuYcjRYFwv6Sw XMSjIPlak7Ylkg0uuHMfMX UbmaQVpWjjxXBbkR4dV5Rr ZOIkDMJsug3tRSVdhD7vUS thk0MazqlsOPRcLQAtJJQn dbYekd9oILZeoGXRLI9LVS gofFYhv6FhoyIiF6aWHZB9 NUQwNjYwMjgxKSBleGNlcH IoLERvqr74OMMipB5hlDxf MBLxuN8ejT1dtFhwrI9oUf SeYeZoLJszII8vCFIpE2ox zRNcDREcSRAwS1yzUeRttP 9jaFxmMVxjZjJcZnMyMFxw YXJ9fQ== Embedded Images (test code = [id number]) [facility] ([id number])2022-11-03 17:25:32* Test Item Value Reference Range Interpretation Comme nts NA (test code = 4627618883) 139 mmol/L 135-145 K (test code = 4239107803) 4.2 mmol/L 3.5-5.0 CL (test code = 5409612349) 105 mmol/L 98-108 CO2 TOTAL (test code = 2717103124) 26 mmol/L 23-31 AGAP (test code = 8730785591) 8 2-16 BUN (test code = 2614807194) 9 mg/dL 7-23 GLUCOSE (test code = 7250651436) 93 mg/dL 70-110 CREATININE (test code = 2631613278) 0.60 mg/dL 0.50-1.04 TOTAL BILI (test code = 0541184373) 0.2 mg/dL 0.1-1.1 CALCIUM (test code = 5199886418) 9.2 mg/dL 8.6-10.6 T PROTEIN (test code = 0671842786) 7.0 g/dL 6.3-8.2 ALBUMIN (test code = 2173695089) 4.2 g/dL 3.5-5.0 ALK PHOS (test code = 5857721470) 118 U/L 34-122 ALTv (test code = 1742-6) 34 U/L 5-35 AST(SGOT) (test code = 7569361689) 34 U/L 13-40 eGFR (test code = 0678631367) 108.1 mL/min/1.73m2 ZAINAB (test code = ZAINAB) [...] or urine or abnormalities in imaging tests). [facility]. METABOLIC PANEL ([id number])2022-11-03 17:25:32* Test Item Value Reference Range Interpretation Comme nts NA (test code = 5675400405) 139 mmol/L 135-145 K (test code = 3681333448) 4.2 mmol/L 3.5-5.0 CL (test code = 1493375433) 105 mmol/L 98-108 CO2 TOTAL (test code = 7875009713) 26 mmol/L 23-31 AGAP (test code = 6689118637) 8 2-16 BUN (test code = 4182197033) 9 mg/dL 7-23 GLUCOSE (test code = 5006091757) 93 mg/dL 70-110 CREATININE (test code = 5877032834) 0.60 mg/dL 0.50-1.04 TOTAL BILI (test code = 4154536693) 0.2 mg/dL 0.1-1.1 CALCIUM (test code = 9652226904) 9.2 mg/dL 8.6-10.6 T PROTEIN (test code = 0080961421) 7.0 g/dL 6.3-8.2 ALBUMIN (test code = 3176148015) 4.2 g/dL 3.5-5.0 ALK PHOS (test code = 7446599473) 118 U/L 34-122 ALTv (test code = 1742-6) 34 U/L 5-35 AST(SGOT) (test code = 2026109094) 34 U/L 13-40 eGFR (test code = 1663254473) 108.1 mL/min/1.73m2 ZAINAB (test code = ZAINAB) [...] or urine or abnormalities in imaging tests). [facility]. METABOLIC PANEL ([id number])2022-11-03 17:25:32* Test Item Value Reference Range Interpretation Comme nts NA (test code = 4363219662) 139 mmol/L 135-145 K (test code = 2169328762) 4.2 mmol/L 3.5-5.0 CL (test code = 6709407617) 105 mmol/L 98-108 CO2 TOTAL (test code = 8903569962) 26 mmol/L 23-31 AGAP (test code = 8279873511) 8 2-16 BUN (test code = 6504132462) 9 mg/dL 7-23 GLUCOSE (test code = 8516255220) 93 mg/dL 70-110 CREATININE (test code = 6470443966) 0.60 mg/dL 0.50-1.04 TOTAL BILI (test code = 7166630510) 0.2 mg/dL 0.1-1.1 CALCIUM (test code = 9916459315) 9.2 mg/dL 8.6-10.6 T PROTEIN (test code = 6776828518) 7.0 g/dL 6.3-8.2 ALBUMIN (test code = 9041542625) 4.2 g/dL 3.5-5.0 ALK PHOS (test code = 1886003704) 118 U/L 34-122 ALTv (test code = 1742-6) 34 U/L 5-35 AST(SGOT) (test code = 2813180586) 34 U/L 13-40 eGFR (test code = 4519315586) 108.1 mL/min/1.73m2 ZAINAB (test code = ZAINAB) [...] or urine or abnormalities in imaging tests). [facility]. METABOLIC PANEL ([id number])2022-11-03 17:25:32* Test Item Value Reference Range Interpretation Comme nts NA (test code = 4477861205) 139 mmol/L 135-145 K (test code = 5258798585) 4.2 mmol/L 3.5-5.0 CL (test code = 1897697368) 105 mmol/L 98-108 CO2 TOTAL (test code = 4529714095) 26 mmol/L 23-31 AGAP (test code = 7656939840) 8 2-16 BUN (test code = 3098024373) 9 mg/dL 7-23 GLUCOSE (test code = 2063144151) 93 mg/dL 70-110 CREATININE (test code = 4413851686) 0.60 mg/dL 0.50-1.04 TOTAL BILI (test code = 7807032250) 0.2 mg/dL 0.1-1.1 CALCIUM (test code = 3169512872) 9.2 mg/dL 8.6-10.6 T PROTEIN (test code = 6637572631) 7.0 g/dL 6.3-8.2 ALBUMIN (test code = 5663725035) 4.2 g/dL 3.5-5.0 ALK PHOS (test code = 8147625390) 118 U/L 34-122 ALTv (test code = 1742-6) 34 U/L 5-35 AST(SGOT) (test code = 7650978640) 34 U/L 13-40 eGFR (test code = 9353009334) 108.1 mL/min/1.73m2 ZAINAB (test code = ZAINAB) [...] or urine or abnormalities in imaging tests). [facility]. METABOLIC PANEL ([id number])2022-11-03 17:25:32* Test Item Value Reference Range Interpretation Comme nts NA (test code = 4602158883) 139 mmol/L 135-145 K (test code = 4537924025) 4.2 mmol/L 3.5-5.0 CL (test code = 8935535778) 105 mmol/L 98-108 CO2 TOTAL (test code = 5850411201) 26 mmol/L 23-31 AGAP (test code = 3967532900) 8 2-16 BUN (test code = 2975080511) 9 mg/dL 7-23 GLUCOSE (test code = 8360045227) 93 mg/dL 70-110 CREATININE (test code = 5487303075) 0.60 mg/dL 0.50-1.04 TOTAL BILI (test code = 8897758651) 0.2 mg/dL 0.1-1.1 CALCIUM (test code = 9078240136) 9.2 mg/dL 8.6-10.6 T PROTEIN (test code = 5307894515) 7.0 g/dL 6.3-8.2 ALBUMIN (test code = 1218802758) 4.2 g/dL 3.5-5.0 ALK PHOS (test code = 7371839062) 118 U/L 34-122 ALTv (test code = 1742-6) 34 U/L 5-35 AST(SGOT) (test code = 6678632549) 34 U/L 13-40 eGFR (test code = 3884223120) 108.1 mL/min/1.73m2 ZAINAB (test code = ZAINAB) [...] or urine or abnormalities in imaging tests). [facility]. METABOLIC PANEL ([id number])2022-11-03 17:25:32* Test Item Value Reference Range Interpretation Comme nts NA (test code = 2828331054) 139 mmol/L 135-145 K (test code = 7019639210) 4.2 mmol/L 3.5-5.0 CL (test code = 2176060737) 105 mmol/L 98-108 CO2 TOTAL (test code = 9981495316) 26 mmol/L 23-31 AGAP (test code = 0162526031) 8 2-16 BUN (test code = 2657139909) 9 mg/dL 7-23 GLUCOSE (test code = 2409398149) 93 mg/dL 70-110 CREATININE (test code = 3140495017) 0.60 mg/dL 0.50-1.04 TOTAL BILI (test code = 2730985527) 0.2 mg/dL 0.1-1.1 CALCIUM (test code = 9267564607) 9.2 mg/dL 8.6-10.6 T PROTEIN (test code = 5885162146) 7.0 g/dL 6.3-8.2 ALBUMIN (test code = 6108272572) 4.2 g/dL 3.5-5.0 ALK PHOS (test code = 3169672038) 118 U/L 34-122 ALTv (test code = 1742-6) 34 U/L 5-35 AST(SGOT) (test code = 9492757271) 34 U/L 13-40 eGFR (test code = 7408807945) 108.1 mL/min/1.73m2 ZAINAB (test code = ZAINAB) [...] or urine or abnormalities in imaging tests). [facility]. METABOLIC PANEL ([id number])2022-11-03 17:25:32* Test Item Value Reference Range Interpretation Comme nts NA (test code = 8938500729) 139 mmol/L 135-145 K (test code = 3144670064) 4.2 mmol/L 3.5-5.0 CL (test code = 4413443194) 105 mmol/L 98-108 CO2 TOTAL (test code = 5479661434) 26 mmol/L 23-31 AGAP (test code = 6314495442) 8 2-16 BUN (test code = 0012754739) 9 mg/dL 7-23 GLUCOSE (test code = 6703711848) 93 mg/dL 70-110 CREATININE (test code = 3950768827) 0.60 mg/dL 0.50-1.04 TOTAL BILI (test code = 6063196539) 0.2 mg/dL 0.1-1.1 CALCIUM (test code = 8262024019) 9.2 mg/dL 8.6-10.6 T PROTEIN (test code = 0735571551) 7.0 g/dL 6.3-8.2 ALBUMIN (test code = 6504942253) 4.2 g/dL 3.5-5.0 ALK PHOS (test code = 2365589064) 118 U/L 34-122 ALTv (test code = 1742-6) 34 U/L 5-35 AST(SGOT) (test code = 8929901646) 34 U/L 13-40 eGFR (test code = 9390020062) 108.1 mL/min/1.73m2 ZAINAB (test code = ZAINAB) [...] or urine or abnormalities in imaging tests). [facility]. METABOLIC PANEL ([id number])2022-11-03 17:25:32* Test Item Value Reference Range Interpretation Comme nts NA (test code = 8683812060) 139 mmol/L 135-145 K (test code = 6513928474) 4.2 mmol/L 3.5-5.0 CL (test code = 1063881980) 105 mmol/L 98-108 CO2 TOTAL (test code = 7777795513) 26 mmol/L 23-31 AGAP (test code = 0465963826) 8 2-16 BUN (test code = 4448233693) 9 mg/dL 7-23 GLUCOSE (test code = 6578723171) 93 mg/dL 70-110 CREATININE (test code = 0428135709) 0.60 mg/dL 0.50-1.04 TOTAL BILI (test code = 8323039235) 0.2 mg/dL 0.1-1.1 CALCIUM (test code = 6600538602) 9.2 mg/dL 8.6-10.6 T PROTEIN (test code = 4151031627) 7.0 g/dL 6.3-8.2 ALBUMIN (test code = 7114064142) 4.2 g/dL 3.5-5.0 ALK PHOS (test code = 0504258859) 118 U/L 34-122 ALTv (test code = 1742-6) 34 U/L 5-35 AST(SGOT) (test code = 9831971650) 34 U/L 13-40 eGFR (test code = 1786617549) 108.1 mL/min/1.73m2 ZAINAB (test code = ZAINAB) [...] or urine or abnormalities in imaging tests). [facility]. METABOLIC PANEL ([id number])2022-11-03 17:25:32* Test Item Value Reference Range Interpretation Comme nts NA (test code = 1899055090) 139 mmol/L 135-145 K (test code = 6088662983) 4.2 mmol/L 3.5-5.0 CL (test code = 3664333087) 105 mmol/L 98-108 CO2 TOTAL (test code = 8104524654) 26 mmol/L 23-31 AGAP (test code = 3931050752) 8 2-16 BUN (test code = 9923733154) 9 mg/dL 7-23 GLUCOSE (test code = 4341690460) 93 mg/dL 70-110 CREATININE (test code = 3216619132) 0.60 mg/dL 0.50-1.04 TOTAL BILI (test code = 4452169678) 0.2 mg/dL 0.1-1.1 CALCIUM (test code = 6041584589) 9.2 mg/dL 8.6-10.6 T PROTEIN (test code = 2995230700) 7.0 g/dL 6.3-8.2 ALBUMIN (test code = 0921118966) 4.2 g/dL 3.5-5.0 ALK PHOS (test code = 8442489736) 118 U/L 34-122 ALTv (test code = 1742-6) 34 U/L 5-35 AST(SGOT) (test code = 3700330469) 34 U/L 13-40 eGFR (test code = 57269-1) 108.1 mL/min/1.73m2 ZAINAB (test code = ZAINAB) [...] or urine or abnormalities in imaging tests). [facility]. METABOLIC PANEL ([id number])2022-11-03 17:25:32* Test Item Value Reference Range Interpretation Comme nts NA (test code = 8560643431) 139 mmol/L 135-145 K (test code = 3156964457) 4.2 mmol/L 3.5-5.0 CL (test code = 6454652303) 105 mmol/L 98-108 CO2 TOTAL (test code = 8972290253) 26 mmol/L 23-31 AGAP (test code = 4401080990) 8 2-16 BUN (test code = 5982380996) 9 mg/dL 7-23 GLUCOSE (test code = 4281950630) 93 mg/dL 70-110 CREATININE (test code = 1281486014) 0.60 mg/dL 0.50-1.04 TOTAL BILI (test code = 3822112097) 0.2 mg/dL 0.1-1.1 CALCIUM (test code = 9827003285) 9.2 mg/dL 8.6-10.6 T PROTEIN (test code = 0174276537) 7.0 g/dL 6.3-8.2 ALBUMIN (test code = 1982793942) 4.2 g/dL 3.5-5.0 ALK PHOS (test code = 7056180868) 118 U/L 34-122 ALTv (test code = 1742-6) 34 U/L 5-35 AST(SGOT) (test code = 8880638130) 34 U/L 13-40 eGFR (test code = 85142-0) 108.1 mL/min/1.73m2 ZAINAB (test code = ZAINAB) [...] or urine or abnormalities in imaging tests). [facility]. METABOLIC PANEL ([id number])2022-11-03 17:25:32* Test Item Value Reference Range Interpretation Comme nts NA (test code = 0997270022) 139 mmol/L 135-145 K (test code = 4949593205) 4.2 mmol/L 3.5-5.0 CL (test code = 0996044478) 105 mmol/L 98-108 CO2 TOTAL (test code = 1846441793) 26 mmol/L 23-31 AGAP (test code = 6320552695) 8 2-16 BUN (test code = 4458317016) 9 mg/dL 7-23 GLUCOSE (test code = 2371796004) 93 mg/dL 70-110 CREATININE (test code = 7084352128) 0.60 mg/dL 0.50-1.04 TOTAL BILI (test code = 9760774377) 0.2 mg/dL 0.1-1.1 CALCIUM (test code = 3637894584) 9.2 mg/dL 8.6-10.6 T PROTEIN (test code = 9348232132) 7.0 g/dL 6.3-8.2 ALBUMIN (test code = 6559166864) 4.2 g/dL 3.5-5.0 ALK PHOS (test code = 3388148832) 118 U/L 34-122 ALTv (test code = 1742-6) 34 U/L 5-35 AST(SGOT) (test code = 0531994645) 34 U/L 13-40 eGFR (test code = 89636-1) 108.1 mL/min/1.73m2 ZAINAB (test code = ZAINAB) [...] or urine or abnormalities in imaging tests). [facility]. METABOLIC PANEL ([id number])2022-11-03 17:25:32* Test Item Value Reference Range Interpretation Comme nts NA (test code = 6648605148) 139 mmol/L 135-145 K (test code = 7047723889) 4.2 mmol/L 3.5-5.0 CL (test code = 0218349806) 105 mmol/L 98-108 CO2 TOTAL (test code = 1345204320) 26 mmol/L 23-31 AGAP (test code = 6085541615) 8 2-16 BUN (test code = 1234801201) 9 mg/dL 7-23 GLUCOSE (test code = 3517030453) 93 mg/dL 70-110 CREATININE (test code = 1895723122) 0.60 mg/dL 0.50-1.04 TOTAL BILI (test code = 6300801850) 0.2 mg/dL 0.1-1.1 CALCIUM (test code = 7515219287) 9.2 mg/dL 8.6-10.6 T PROTEIN (test code = 8063693549) 7.0 g/dL 6.3-8.2 ALBUMIN (test code = 9797505799) 4.2 g/dL 3.5-5.0 ALK PHOS (test code = 8767794033) 118 U/L 34-122 ALTv (test code = 1742-6) 34 U/L 5-35 AST(SGOT) (test code = 5733041868) 34 U/L 13-40 eGFR (test code = 20210-7) 108.1 mL/min/1.73m2 ZAINAB (test code = ZAINAB) [...] or urine or abnormalities in imaging tests). [facility]. METABOLIC PANEL ([id number])2022-11-03 17:25:32* Test Item Value Reference Range Interpretation Comme nts NA (test code = 4694295200) 139 mmol/L 135-145 K (test code = 7765135922) 4.2 mmol/L 3.5-5.0 CL (test code = 9186733264) 105 mmol/L 98-108 CO2 TOTAL (test code = 4506970708) 26 mmol/L 23-31 AGAP (test code = 8797869238) 8 2-16 BUN (test code = 7620277077) 9 mg/dL 7-23 GLUCOSE (test code = 6822742053) 93 mg/dL 70-110 CREATININE (test code = 4623622410) 0.60 mg/dL 0.50-1.04 TOTAL BILI (test code = 2165189848) 0.2 mg/dL 0.1-1.1 CALCIUM (test code = 9091750130) 9.2 mg/dL 8.6-10.6 T PROTEIN (test code = 7214540797) 7.0 g/dL 6.3-8.2 ALBUMIN (test code = 2526375337) 4.2 g/dL 3.5-5.0 ALK PHOS (test code = 7855747718) 118 U/L 34-122 ALTv (test code = 1742-6) 34 U/L 5-35 AST(SGOT) (test code = 0983536968) 34 U/L 13-40 eGFR (test code = 65782-9) 108.1 mL/min/1.73m2 ZAINAB (test code = ZAINAB) [...] or urine or abnormalities in imaging tests). [facility]. METABOLIC PANEL ([id number])2022-11-03 17:25:32* Test Item Value Reference Range Interpretation Comme nts NA (test code = 6413477233) 139 mmol/L 135-145 K (test code = 4299392803) 4.2 mmol/L 3.5-5.0 CL (test code = 5144009248) 105 mmol/L 98-108 CO2 TOTAL (test code = 5420117160) 26 mmol/L 23-31 AGAP (test code = 4270260922) 8 2-16 BUN (test code = 4299064324) 9 mg/dL 7-23 GLUCOSE (test code = 4212493016) 93 mg/dL 70-110 CREATININE (test code = 2342587034) 0.60 mg/dL 0.50-1.04 TOTAL BILI (test code = 2986004459) 0.2 mg/dL 0.1-1.1 CALCIUM (test code = 9413530963) 9.2 mg/dL 8.6-10.6 T PROTEIN (test code = 8448886955) 7.0 g/dL 6.3-8.2 ALBUMIN (test code = 4344550425) 4.2 g/dL 3.5-5.0 ALK PHOS (test code = 8066048870) 118 U/L 34-122 ALTv (test code = 1742-6) 34 U/L 5-35 AST(SGOT) (test code = 8353104382) 34 U/L 13-40 eGFR (test code = 64411-7) 108.1 mL/min/1.73m2 ZAINAB (test code = ZAINAB) [...] or urine or abnormalities in imaging tests). [facility]. METABOLIC PANEL ([id number])2022-11-03 17:25:32* Test Item Value Reference Range Interpretation Comme nts NA (test code = 6438781194) 139 mmol/L 135-145 K (test code = 0567317910) 4.2 mmol/L 3.5-5.0 CL (test code = 5207690572) 105 mmol/L 98-108 CO2 TOTAL (test code = 1347760985) 26 mmol/L 23-31 AGAP (test code = 1504962625) 8 2-16 BUN (test code = 9385224395) 9 mg/dL 7-23 GLUCOSE (test code = 6709155189) 93 mg/dL 70-110 CREATININE (test code = 9792468939) 0.60 mg/dL 0.50-1.04 TOTAL BILI (test code = 7117136966) 0.2 mg/dL 0.1-1.1 CALCIUM (test code = 7822673703) 9.2 mg/dL 8.6-10.6 T PROTEIN (test code = 5323109743) 7.0 g/dL 6.3-8.2 ALBUMIN (test code = 7736572535) 4.2 g/dL 3.5-5.0 ALK PHOS (test code = 3859911446) 118 U/L 34-122 ALTv (test code = 1742-6) 34 U/L 5-35 AST(SGOT) (test code = 2950496197) 34 U/L 13-40 eGFR (test code = 67696-4) 108.1 mL/min/1.73m2 ZAINAB (test code = ZAINAB) [...] or urine or abnormalities in imaging tests). [facility]. METABOLIC PANEL ([id number])2022-11-03 17:25:32* Test Item Value Reference Range Interpretation Comme nts NA (test code = 2987196103) 139 mmol/L 135-145 K (test code = 1345448957) 4.2 mmol/L 3.5-5.0 CL (test code = 4917368724) 105 mmol/L 98-108 CO2 TOTAL (test code = 8589880398) 26 mmol/L 23-31 AGAP (test code = 1856092686) 8 2-16 BUN (test code = 4917264280) 9 mg/dL 7-23 GLUCOSE (test code = 1861036309) 93 mg/dL 70-110 CREATININE (test code = 4468316628) 0.60 mg/dL 0.50-1.04 TOTAL BILI (test code = 6985970098) 0.2 mg/dL 0.1-1.1 CALCIUM (test code = 8282463717) 9.2 mg/dL 8.6-10.6 T PROTEIN (test code = 1871374596) 7.0 g/dL 6.3-8.2 ALBUMIN (test code = 0854187207) 4.2 g/dL 3.5-5.0 ALK PHOS (test code = 1078949134) 118 U/L 34-122 ALTv (test code = 1742-6) 34 U/L 5-35 AST(SGOT) (test code = 4629100655) 34 U/L 13-40 eGFR (test code = 87715-2) 108.1 mL/min/1.73m2 ZAINAB (test code = ZAINAB) [...] or urine or abnormalities in imaging tests). [facility]. METABOLIC PANEL ([id number])2022-11-03 17:25:32* Test Item Value Reference Range Interpretation Comme nts NA (test code = 5225547321) 139 mmol/L 135-145 K (test code = 9314984068) 4.2 mmol/L 3.5-5.0 CL (test code = 2116506834) 105 mmol/L 98-108 CO2 TOTAL (test code = 0494095111) 26 mmol/L 23-31 AGAP (test code = 4315436635) 8 2-16 BUN (test code = 9933182178) 9 mg/dL 7-23 GLUCOSE (test code = 7005386564) 93 mg/dL 70-110 CREATININE (test code = 5043467664) 0.60 mg/dL 0.50-1.04 TOTAL BILI (test code = 4818238809) 0.2 mg/dL 0.1-1.1 CALCIUM (test code = 7688783403) 9.2 mg/dL 8.6-10.6 T PROTEIN (test code = 9347715046) 7.0 g/dL 6.3-8.2 ALBUMIN (test code = 6167656924) 4.2 g/dL 3.5-5.0 ALK PHOS (test code = 0334494403) 118 U/L 34-122 ALTv (test code = 1742-6) 34 U/L 5-35 AST(SGOT) (test code = 9951653304) 34 U/L 13-40 eGFR (test code = 13693-8) 108.1 mL/min/1.73m2 ZAINAB (test code = ZAINAB) [...] abnormalities in imaging tests). [facility] (55454)2022-11-03 17:25:32* Test Item Value Reference Range Interpretation Comme nts NA (test code = 8332060921) 139 mmol/L 135-145 K (test code = 9446480200) 4.2 mmol/L 3.5-5.0 CL (test code = 5935532112) 105 mmol/L 98-108 CO2 TOTAL (test code = 4267367466) 26 mmol/L 23-31 AGAP (test code = 9666332022) 8 2-16 BUN (test code = 8426722809) 9 mg/dL 7-23 GLUCOSE (test code = 1083925917) 93 mg/dL 70-110 CREATININE (test code = 1531829519) 0.60 mg/dL 0.50-1.04 TOTAL BILI (test code = 2911483020) 0.2 mg/dL 0.1-1.1 CALCIUM (test code = 0399812171) 9.2 mg/dL 8.6-10.6 T PROTEIN (test code = 3318943663) 7.0 g/dL 6.3-8.2 ALBUMIN (test code = 8795456677) 4.2 g/dL 3.5-5.0 ALK PHOS (test code = 5933853173) 118 U/L 34-122 ALTv (test code = 1742-6) 34 U/L 5-35 AST(SGOT) (test code = 0578658744) 34 U/L 13-40 eGFR (test code = 10158-1) 108.1 mL/min/1.73m2 ZAINAB (test code = ZAINAB) [...] or urine or abnormalities in imaging tests). [facility] WITH [id number] 17:18:52* Test Item Value Reference Range Interpretation Comme nts WBC (test code = 6690-2) 7.41 See_Comment [Automated [employer]] The system which generated this result transmitted [...] g/dL 31.6-35.1 L RDW-SD (test code = 57114-8) 46.2 fL 39.0-49.9 RDW-CV (test code = 788-0) 17.9 % 12.0-15.5 H PLT (test code = 777-3) 304 See_Comment [Automated messa ge] The system which generated this result transmitted reference range: 166 - 358 10*3/?L. The reference range was not used to interpret this result as normal/abnormal. MPV (test code = 50916-1) 11.0 fL 9.5-12.9 NRBC/100 WBC (test code = 1995426817) 0.0 See_Comment [Automated [employer] ssage] The system which generated this result transmitted reference range: 0.0 - 10.0 /100 WBCs. The reference range was not used to interpret this result as normal/abnormal. NRBC x10^3 (test code = 6049716081) See_Comment [Automated messa ge] The system which generated this result transmitted reference range: 10*3/?L. The reference range was not used to interpret this result as normal/abnormal. GRAN MAT (NEUT) % (test code = 770-8) 68.6 % IMM GRAN % (test code = 4349189567) 0.70 % LYMPH % (test code = 736-9) 19.8 % MONO % (test code = 5905-5) 5.3 % EOS % (test code = 713-8) 5.1 % BASO % (test code = 706-2) 0.5 % GRAN MAT x10^3(ANC) (test code = 4043493992) 5.08 10*3/uL 1.88-7.09 IMM GRAN x10^3 (test code = 6388936387) 0.05 10*3/uL 0.00-0.06 LYMPH x10^3 (test code = 731-0) 1.47 10*3/uL 1.32-3.29 MONO x10^3 (test code = 742-7) 0.39 10*3/uL 0.33-0.92 EOS x10^3 (test code = 711-2) 0.38 10*3/uL 0.03-0.39 BASO x10^3 (test code = 704-7) 0.04 10*3/uL 0.01-0.07 Lab Interpretation (test code = 62240-1) Abnormal [facility] WITH [id number] 17:18:52* Test Item Value Reference Range Interpretation Comme nts WBC (test code = 6690-2) 7.41 See_Comment [Automated [employer]] The system which generated this result transmitted reference range: 4.30 - 11.10 10*3/?L. The reference range was not used to interpret this result as normal/abnormal. RBC (test code = 789-8) 4.20 See_Comment [Automated [employer]] The system which generated this result [...] g/dL 31.6-35.1 L RDW-SD (test code = 72659-8) 46.2 fL 39.0-49.9 RDW-CV (test code = 788-0) 17.9 % 12.0-15.5 H PLT (test code = 777-3) 304 See_Comment [Automated messa ge] The system which generated this result transmitted reference range: 166 - 358 10*3/?L. The reference range was not used to interpret this result as normal/abnormal. MPV (test code = 27481-6) 11.0 fL 9.5-12.9 NRBC/100 WBC (test code = 4453095315) 0.0 See_Comment [Automated [employer] ssage] The system which generated this result transmitted reference range: 0.0 - 10.0 /100 WBCs. The reference range was not used to interpret this result as normal/abnormal. NRBC x10^3 (test code = 3725638913) See_Comment [Automated messa ge] The system which generated this result transmitted reference range: 10*3/?L. The reference range was not used to interpret this result as normal/abnormal. GRAN MAT (NEUT) % (test code = 770-8) 68.6 % IMM GRAN % (test code = 4750214649) 0.70 % LYMPH % (test code = 736-9) 19.8 % MONO % (test code = 5905-5) 5.3 % EOS % (test code = 713-8) 5.1 % BASO % (test code = 706-2) 0.5 % GRAN MAT x10^3(ANC) (test code = 1891476219) 5.08 10*3/uL 1.88-7.09 IMM GRAN x10^3 (test code = 4836744863) 0.05 10*3/uL 0.00-0.06 LYMPH x10^3 (test code = 731-0) 1.47 10*3/uL 1.32-3.29 MONO x10^3 (test code = 742-7) 0.39 10*3/uL 0.33-0.92 EOS x10^3 (test code = 711-2) 0.38 10*3/uL 0.03-0.39 BASO x10^3 (test code = 704-7) 0.04 10*3/uL 0.01-0.07 Lab Interpretation (test code = 93576-5) Abnormal [facility] WITH [id number] 17:18:52* Test Item Value Reference Range Interpretation [...] g/dL 31.6-35.1 L RDW-SD (test code = 35335-2) 46.2 fL 39.0-49.9 RDW-CV (test code = 788-0) 17.9 % 12.0-15.5 H PLT (test code = 777-3) 304 See_Comment [Automated messa ge] The system which generated this result transmitted reference range: 166 - 358 10*3/?L. The reference range was not used to interpret this result as normal/abnormal. MPV (test code = 86692-2) 11.0 fL 9.5-12.9 NRBC/100 WBC (test code = 3238436784) 0.0 See_Comment [Automated [employer] ss[employer]] The system which generated this result transmitted reference range: 0.0 - 10.0 /100 WBCs. The reference range was not used to interpret this result as normal/abnormal. NRBC x10^3 (test code = 6467247723) See_Comment [Automated messa ge] The system which generated this result transmitted reference range: 10*3/?L. The reference range was not used to interpret this result as normal/abnormal. GRAN MAT (NEUT) % (test code = 770-8) 68.6 % IMM GRAN % (test code = 2166222772) 0.70 % LYMPH % (test code = 736-9) 19.8 % MONO % (test code = 5905-5) 5.3 % EOS % (test code = 713-8) 5.1 % BASO % (test code = 706-2) 0.5 % GRAN MAT x10^3(ANC) (test code = 7592868568) 5.08 10*3/uL 1.88-7.09 IMM GRAN x10^3 (test code = 2662038381) 0.05 10*3/uL 0.00-0.06 LYMPH x10^3 (test code = 731-0) 1.47 10*3/uL 1.32-3.29 MONO x10^3 (test code = 742-7) 0.39 10*3/uL 0.33-0.92 EOS x10^3 (test code = 711-2) 0.38 10*3/uL 0.03-0.39 BASO x10^3 (test code = 704-7) 0.04 10*3/uL 0.01-0.07 Lab Interpretation (test code = 56729-4) Abnormal [facility] WITH [id number] 17:18:52* Test Item Value Reference Range Interpretation Comme nts WBC (test code = 6690-2) 7.41 See_Comment [Automated [employer]] The system which generated this result transmitted reference range: 4.30 - 11.10 10*3/?L. The reference range was not used to interpret this result as normal/abnormal. RBC (test code = 789-8) 4.20 See_Comment [Automated [employer]] The system which generated this result [...] g/dL 31.6-35.1 L RDW-SD (test code = 59237-3) 46.2 fL 39.0-49.9 RDW-CV (test code = 788-0) 17.9 % 12.0-15.5 H PLT (test code = 777-3) 304 See_Comment [Automated messa ge] The system which generated this result transmitted reference range: 166 - 358 10*3/?L. The reference range was not used to interpret this result as normal/abnormal. MPV (test code = 31371-1) 11.0 fL 9.5-12.9 NRBC/100 WBC (test code = 5470010785) 0.0 See_Comment [Automated [employer] ssage] The system which generated this result transmitted reference range: 0.0 - 10.0 /100 WBCs. The reference range was not used to interpret this result as normal/abnormal. NRBC x10^3 (test code = 2941019155) See_Comment [Automated messa ge] The system which generated this result transmitted reference range: 10*3/?L. The reference range was not used to interpret this result as normal/abnormal. GRAN MAT (NEUT) % (test code = 770-8) 68.6 % IMM GRAN % (test code = 1866737739) 0.70 % LYMPH % (test code = 736-9) 19.8 % MONO % (test code = 5905-5) 5.3 % EOS % (test code = 713-8) 5.1 % BASO % (test code = 706-2) 0.5 % GRAN MAT x10^3(ANC) (test code = 9261172871) 5.08 10*3/uL 1.88-7.09 IMM GRAN x10^3 (test code = 8222589737) 0.05 10*3/uL 0.00-0.06 LYMPH x10^3 (test code = 731-0) 1.47 10*3/uL 1.32-3.29 MONO x10^3 (test code = 742-7) 0.39 10*3/uL 0.33-0.92 EOS x10^3 (test code = 711-2) 0.38 10*3/uL 0.03-0.39 BASO x10^3 (test code = 704-7) 0.04 10*3/uL 0.01-0.07 Lab Interpretation (test code = 56238-0) Abnormal [facility] WITH [id number] 17:18:52* Test Item Value Reference Range Interpretation Comme nts WBC (test code = 6690-2) 7.41 See_Comment [Automated [employer]] The system which generated this result transmitted reference range: 4.30 - 11.10 10*3/?L. The reference range was not used to interpret this result as normal/abnormal. RBC (test code = 789-8) 4.20 See_Comment [Automated [employer]] The system which generated this result [...] g/dL 31.6-35.1 L RDW-SD (test code = 02710-2) 46.2 fL 39.0-49.9 RDW-CV (test code = 788-0) 17.9 % 12.0-15.5 H PLT (test code = 777-3) 304 See_Comment [Automated [employer]] The system which generated this result transmitted reference range: 166 - 358 10*3/?L. The reference range was not used to interpret this result as normal/abnormal. MPV (test code = 82376-7) 11.0 fL 9.5-12.9 NRBC/100 WBC (test code = 9163982363) 0.0 See_Comment [Automated me ssage] The system which generated this result transmitted reference range: 0.0 - 10.0 /100 WBCs. The reference range was not used to interpret this result as normal/abnormal. NRBC x10^3 (test code = 2349536129) See_Comment [Automated messa ge] The system which generated this result transmitted reference range: 10*3/?L. The reference range was not used to interpret this result as normal/abnormal. GRAN MAT (NEUT) % (test code = 770-8) 68.6 % IMM GRAN % (test code = 2225719362) 0.70 % LYMPH % (test code = 736-9) 19.8 % MONO % (test code = 5905-5) 5.3 % EOS % (test code = 713-8) 5.1 % BASO % (test code = 706-2) 0.5 % GRAN MAT x10^3(ANC) (test code = 0338836968) 5.08 10*3/uL 1.88-7.09 IMM GRAN x10^3 (test code = 8709432994) 0.05 10*3/uL 0.00-0.06 LYMPH x10^3 (test code = 731-0) 1.47 10*3/uL 1.32-3.29 MONO x10^3 (test code = 742-7) 0.39 10*3/uL 0.33-0.92 EOS x10^3 (test code = 711-2) 0.38 10*3/uL 0.03-0.39 BASO x10^3 (test code = 704-7) 0.04 10*3/uL 0.01-0.07 Lab Interpretation (test code = 06471-4) Abnormal [facility] WITH [id number] 17:18:52* Test Item Value Reference Range Interpretation [...] g/dL 31.6-35.1 L RDW-SD (test code = 27065-2) 46.2 fL 39.0-49.9 RDW-CV (test code = 788-0) 17.9 % 12.0-15.5 H PLT (test code = 777-3) 304 See_Comment [Automated messa ge] The system which generated this result transmitted reference range: 166 - 358 10*3/?L. The reference range was not used to interpret this result as normal/abnormal. MPV (test code = 42901-1) 11.0 fL 9.5-12.9 NRBC/100 WBC (test code = 7541417702) 0.0 See_Comment [Automated [employer] ssage] The system which generated this result transmitted reference range: 0.0 - 10.0 /100 WBCs. The reference range was not used to interpret this result as normal/abnormal. NRBC x10^3 (test code = 1690507887) See_Comment [Automated messa ge] The system which generated this result transmitted reference range: 10*3/?L. The reference range was not used to interpret this result as normal/abnormal. GRAN MAT (NEUT) % (test code = 770-8) 68.6 % IMM GRAN % (test code = 0267305343) 0.70 % LYMPH % (test code = 736-9) 19.8 % MONO % (test code = 5905-5) 5.3 % EOS % (test code = 713-8) 5.1 % BASO % (test code = 706-2) 0.5 % GRAN MAT x10^3(ANC) (test code = 9222897436) 5.08 10*3/uL 1.88-7.09 IMM GRAN x10^3 (test code = 1598665319) 0.05 10*3/uL 0.00-0.06 LYMPH x10^3 (test code = 731-0) 1.47 10*3/uL 1.32-3.29 MONO x10^3 (test code = 742-7) 0.39 10*3/uL 0.33-0.92 EOS x10^3 (test code = 711-2) 0.38 10*3/uL 0.03-0.39 BASO x10^3 (test code = 704-7) 0.04 10*3/uL 0.01-0.07 Lab Interpretation (test code = 32113-5) Abnormal [facility] WITH [id number] 17:18:52* Test Item Value Reference Range Interpretation Comme nts WBC (test code = 6690-2) 7.41 See_Comment [Automated [employer]] The system which generated this result transmitted reference range: 4.30 - 11.10 10*3/?L. The reference range was not used to interpret this result as normal/abnormal. RBC (test code = 789-8) 4.20 See_Comment [Automated [employer]] The system which generated this result transmitted [...] g/dL 31.6-35.1 L RDW-SD (test code = 35132-6) 46.2 fL 39.0-49.9 RDW-CV (test code = 788-0) 17.9 % 12.0-15.5 H PLT (test code = 777-3) 304 See_Comment [Automated messa ge] The system which generated this result transmitted reference range: 166 - 358 10*3/?L. The reference range was not used to interpret this result as normal/abnormal. MPV (test code = 39471-7) 11.0 fL 9.5-12.9 NRBC/100 WBC (test code = 9785114869) 0.0 See_Comment [Automated me ssage] The system which generated this result transmitted reference range: 0.0 - 10.0 /100 WBCs. The reference range was not used to interpret this result as normal/abnormal. NRBC x10^3 (test code = 5095566168) See_Comment [Automated messa ge] The system which generated this result transmitted reference range: 10*3/?L. The reference range was not used to interpret this result as normal/abnormal. GRAN MAT (NEUT) % (test code = 770-8) 68.6 % IMM GRAN % (test code = 1447067379) 0.70 % LYMPH % (test code = 736-9) 19.8 % MONO % (test code = 5905-5) 5.3 % EOS % (test code = 713-8) 5.1 % BASO % (test code = 706-2) 0.5 % GRAN MAT x10^3(ANC) (test code = 6381205032) 5.08 10*3/uL 1.88-7.09 IMM GRAN x10^3 (test code = 0314509472) 0.05 10*3/uL 0.00-0.06 LYMPH x10^3 (test code = 731-0) 1.47 10*3/uL 1.32-3.29 MONO x10^3 (test code = 742-7) 0.39 10*3/uL 0.33-0.92 EOS x10^3 (test code = 711-2) 0.38 10*3/uL 0.03-0.39 BASO x10^3 (test code = 704-7) 0.04 10*3/uL 0.01-0.07 Lab Interpretation (test code = 61579-1) Abnormal [facility] WITH [id number] 17:18:52* Test Item Value Reference Range Interpretation [...] g/dL 31.6-35.1 L RDW-SD (test code = 09674-8) 46.2 fL 39.0-49.9 RDW-CV (test code = 788-0) 17.9 % 12.0-15.5 H PLT (test code = 777-3) 304 See_Comment [Automated messa ge] The system which generated this result transmitted reference range: 166 - 358 10*3/?L. The reference range was not used to interpret this result as normal/abnormal. MPV (test code = 98278-5) 11.0 fL 9.5-12.9 NRBC/100 WBC (test code = 3187071515) 0.0 See_Comment [Automated 3rdKind ssage] The system which generated this result transmitted reference range: 0.0 - 10.0 /100 WBCs. The reference range was not used to interpret this result as normal/abnormal. NRBC x10^3 (test code = 7434714384) See_Comment [Automated messa ge] The system which generated this result transmitted reference range: 10*3/?L. The reference range was not used to interpret this result as normal/abnormal. GRAN MAT (NEUT) % (test code = 770-8) 68.6 % IMM GRAN % (test code = 3985637677) 0.70 % LYMPH % (test code = 736-9) 19.8 % MONO % (test code = 5905-5) 5.3 % EOS % (test code = 713-8) 5.1 % BASO % (test code = 706-2) 0.5 % GRAN MAT x10^3(ANC) (test code = 7781999581) 5.08 10*3/uL 1.88-7.09 IMM GRAN x10^3 (test code = 9958002705) 0.05 10*3/uL 0.00-0.06 LYMPH x10^3 (test code = 731-0) 1.47 10*3/uL 1.32-3.29 MONO x10^3 (test code = 742-7) 0.39 10*3/uL 0.33-0.92 EOS x10^3 (test code = 711-2) 0.38 10*3/uL 0.03-0.39 BASO x10^3 (test code = 704-7) 0.04 10*3/uL 0.01-0.07 Lab Interpretation (test code = 50440-4) Abnormal [facility] WITH [id number] 17:18:52* Test Item Value Reference Range Interpretation Comme nts WBC (test code = 6690-2) 7.41 See_Comment [Automated mobilePeoplea ge] The system which generated this result transmitted reference range: 4.30 - 11.10 10*3/?L. The reference range was not used to interpret this result as normal/abnormal. RBC (test code = 789-8) 4.20 See_Comment [Automated mobilePeoplea ge] The system which generated this result [...] g/dL 31.6-35.1 L RDW-SD (test code = 16710-5) 46.2 fL 39.0-49.9 RDW-CV (test code = 788-0) 17.9 % 12.0-15.5 H PLT (test code = 777-3) 304 See_Comment [Automated mobilePeoplea ge] The system which generated this result transmitted reference range: 166 - 358 10*3/?L. The reference range was not used to interpret this result as normal/abnormal. MPV (test code = 26985-4) 11.0 fL 9.5-12.9 NRBC/100 WBC (test code = 2742467494) 0.0 See_Comment [Automated 3rdKind ssage] The system which generated this result transmitted reference range: 0.0 - 10.0 /100 WBCs. The reference range was not used to interpret this result as normal/abnormal. NRBC x10^3 (test code = 1847350661) See_Comment [Automated mobilePeoplea ge] The system which generated this result transmitted reference range: 10*3/?L. The reference range was not used to interpret this result as normal/abnormal. GRAN MAT (NEUT) % (test code = 770-8) 68.6 % IMM GRAN % (test code = 0755409833) 0.70 % LYMPH % (test code = 736-9) 19.8 % MONO % (test code = 5905-5) 5.3 % EOS % (test code = 713-8) 5.1 % BASO % (test code = 706-2) 0.5 % GRAN MAT x10^3(ANC) (test code = 6367033090) 5.08 10*3/uL 1.88-7.09 IMM GRAN x10^3 (test code = 2195462447) 0.05 10*3/uL 0.00-0.06 LYMPH x10^3 (test code = 731-0) 1.47 10*3/uL 1.32-3.29 MONO x10^3 (test code = 742-7) 0.39 10*3/uL 0.33-0.92 EOS x10^3 (test code = 711-2) 0.38 10*3/uL 0.03-0.39 BASO x10^3 (test code = 704-7) 0.04 10*3/uL 0.01-0.07 Lab Interpretation (test code = 46657-6) Abnormal [facility] WITH [id number] 17:18:52* Test Item Value Reference Range Interpretation [...] g/dL 31.6-35.1 L RDW-SD (test code = 97908-4) 46.2 fL 39.0-49.9 RDW-CV (test code = 788-0) 17.9 % 12.0-15.5 H PLT (test code = 777-3) 304 See_Comment [Automated messa ge] The system which generated this result transmitted reference range: 166 - 358 10*3/?L. The reference range was not used to interpret this result as normal/abnormal. MPV (test code = 26612-0) 11.0 fL 9.5-12.9 NRBC/100 WBC (test code = 0611055274) 0.0 See_Comment [Automated 3rdKind ssage] The system which generated this result transmitted reference range: 0.0 - 10.0 /100 WBCs. The reference range was not used to interpret this result as normal/abnormal. NRBC x10^3 (test code = 1106276329) See_Comment [Automated messa ge] The system which generated this result transmitted reference range: 10*3/?L. The reference range was not used to interpret this result as normal/abnormal. GRAN MAT (NEUT) % (test code = 770-8) 68.6 % IMM GRAN % (test code = 3822628350) 0.70 % LYMPH % (test code = 736-9) 19.8 % MONO % (test code = 5905-5) 5.3 % EOS % (test code = 713-8) 5.1 % BASO % (test code = 706-2) 0.5 % GRAN MAT x10^3(ANC) (test code = 7737120849) 5.08 10*3/uL 1.88-7.09 IMM GRAN x10^3 (test code = 9720106597) 0.05 10*3/uL 0.00-0.06 LYMPH x10^3 (test code = 731-0) 1.47 10*3/uL 1.32-3.29 MONO x10^3 (test code = 742-7) 0.39 10*3/uL 0.33-0.92 EOS x10^3 (test code = 711-2) 0.38 10*3/uL 0.03-0.39 BASO x10^3 (test code = 704-7) 0.04 10*3/uL 0.01-0.07 Lab Interpretation (test code = 99499-6) Abnormal [facility] WITH [id number] 17:18:52* Test Item Value Reference Range Interpretation [...] g/dL 31.6-35.1 L RDW-SD (test code = 74459-4) 46.2 fL 39.0-49.9 RDW-CV (test code = 788-0) 17.9 % 12.0-15.5 H PLT (test code = 777-3) 304 See_Comment [Automated messa ge] The system which generated this result transmitted reference range: 166 - 358 10*3/?L. The reference range was not used to interpret this result as normal/abnormal. MPV (test code = 55720-9) 11.0 fL 9.5-12.9 NRBC/100 WBC (test code = 6624619414) 0.0 See_Comment [Automated 3rdKind ssage] The system which generated this result transmitted reference range: 0.0 - 10.0 /100 WBCs. The reference range was not used to interpret this result as normal/abnormal. NRBC x10^3 (test code = 5069237343) See_Comment [Automated messa ge] The system which generated this result transmitted reference range: 10*3/?L. The reference range was not used to interpret this result as normal/abnormal. GRAN MAT (NEUT) % (test code = 770-8) 68.6 % IMM GRAN % (test code = 6966389940) 0.70 % LYMPH % (test code = 736-9) 19.8 % MONO % (test code = 5905-5) 5.3 % EOS % (test code = 713-8) 5.1 % BASO % (test code = 706-2) 0.5 % GRAN MAT x10^3(ANC) (test code = 1690574839) 5.08 10*3/uL 1.88-7.09 IMM GRAN x10^3 (test code = 4968725095) 0.05 10*3/uL 0.00-0.06 LYMPH x10^3 (test code = 731-0) 1.47 10*3/uL 1.32-3.29 MONO x10^3 (test code = 742-7) 0.39 10*3/uL 0.33-0.92 EOS x10^3 (test code = 711-2) 0.38 10*3/uL 0.03-0.39 BASO x10^3 (test code = 704-7) 0.04 10*3/uL 0.01-0.07 Lab Interpretation (test code = 15939-2) Abnormal [facility] WITH [id number] 17:18:52* Test Item Value Reference Range Interpretation Comme nts WBC (test code = 6690-2) 7.41 See_Comment [Automated mobilePeoplea ge] The system which generated this result [...] g/dL 31.6-35.1 L RDW-SD (test code = 98486-3) 46.2 fL 39.0-49.9 RDW-CV (test code = 788-0) 17.9 % 12.0-15.5 H PLT (test code = 777-3) 304 See_Comment [Automated mobilePeoplea ge] The system which generated this result transmitted reference range: 166 - 358 10*3/?L. The reference range was not used to interpret this result as normal/abnormal. MPV (test code = 06706-5) 11.0 fL 9.5-12.9 NRBC/100 WBC (test code = 9848177733) 0.0 See_Comment [Automated me ssage] The system which generated this result transmitted reference range: 0.0 - 10.0 /100 WBCs. The reference range was not used to interpret this result as normal/abnormal. NRBC x10^3 (test code = 4820696652) See_Comment [Automated messa ge] The system which generated this result transmitted reference range: 10*3/?L. The reference range was not used to interpret this result as normal/abnormal. GRAN MAT (NEUT) % (test code = 770-8) 68.6 % IMM GRAN % (test code = 5190394195) 0.70 % LYMPH % (test code = 736-9) 19.8 % MONO % (test code = 5905-5) 5.3 % EOS % (test code = 713-8) 5.1 % BASO % (test code = 706-2) 0.5 % GRAN MAT x10^3(ANC) (test code = 4497654106) 5.08 10*3/uL 1.88-7.09 IMM GRAN x10^3 (test code = 6209674323) 0.05 10*3/uL 0.00-0.06 LYMPH x10^3 (test code = 731-0) 1.47 10*3/uL 1.32-3.29 MONO x10^3 (test code = 742-7) 0.39 10*3/uL 0.33-0.92 EOS x10^3 (test code = 711-2) 0.38 10*3/uL 0.03-0.39 BASO x10^3 (test code = 704-7) 0.04 10*3/uL 0.01-0.07 Lab Interpretation (test code = 10036-7) Abnormal [facility] WITH [id number] 17:18:52* Test Item Value Reference Range Interpretation Comme nts WBC (test code = 6690-2) 7.41 See_Comment [Automated messa ge] The system which generated this result transmitted reference range: 4.30 - 11.10 10*3/?L. The reference range was not used to interpret this result as normal/abnormal. RBC (test code = 789-8) 4.20 See_Comment [Automated mobilePeoplea ge] The system which generated this result [...] g/dL 31.6-35.1 L RDW-SD (test code = 55689-3) 46.2 fL 39.0-49.9 RDW-CV (test code = 788-0) 17.9 % 12.0-15.5 H PLT (test code = 777-3) 304 See_Comment [Automated mobilePeoplea ge] The system which generated this result transmitted reference range: 166 - 358 10*3/?L. The reference range was not used to interpret this result as normal/abnormal. MPV (test code = 93402-6) 11.0 fL 9.5-12.9 NRBC/100 WBC (test code = 6003002299) 0.0 See_Comment [Automated 3rdKind ssage] The system which generated this result transmitted reference range: 0.0 - 10.0 /100 WBCs. The reference range was not used to interpret this result as normal/abnormal. NRBC x10^3 (test code = 3788199776) See_Comment [Automated mobilePeoplea ge] The system which generated this result transmitted reference range: 10*3/?L. The reference range was not used to interpret this result as normal/abnormal. GRAN MAT (NEUT) % (test code = 770-8) 68.6 % IMM GRAN % (test code = 9299757139) 0.70 % LYMPH % (test code = 736-9) 19.8 % MONO % (test code = 5905-5) 5.3 % EOS % (test code = 713-8) 5.1 % BASO % (test code = 706-2) 0.5 % GRAN MAT x10^3(ANC) (test code = 4977028732) 5.08 10*3/uL 1.88-7.09 IMM GRAN x10^3 (test code = 3414531294) 0.05 10*3/uL 0.00-0.06 LYMPH x10^3 (test code = 731-0) 1.47 10*3/uL 1.32-3.29 MONO x10^3 (test code = 742-7) 0.39 10*3/uL 0.33-0.92 EOS x10^3 (test code = 711-2) 0.38 10*3/uL 0.03-0.39 BASO x10^3 (test code = 704-7) 0.04 10*3/uL 0.01-0.07 Lab Interpretation (test code = 35502-7) Abnormal [facility] WITH [id number] 17:18:52* Test Item Value Reference Range Interpretation Comme nts WBC (test code = 6690-2) 7.41 See_Comment [Automated mobilePeoplea Indotrading] The system which generated this result transmitted reference range: 4.30 - 11.10 10*3/?L. The reference range was not used to interpret this result as normal/abnormal. RBC (test code = 789-8) 4.20 See_Comment [Automated mobilePeoplea [employer]otrading] The system which generated this result transmitted [...] g/dL 31.6-35.1 L RDW-SD (test code = 22455-1) 46.2 fL 39.0-49.9 RDW-CV (test code = 788-0) 17.9 % 12.0-15.5 H PLT (test code = 777-3) 304 See_Comment [Automated messa ge] The system which generated this result transmitted reference range: 166 - 358 10*3/?L. The reference range was not used to interpret this result as normal/abnormal. MPV (test code = 33840-8) 11.0 fL 9.5-12.9 NRBC/100 WBC (test code = 0076857941) 0.0 See_Comment [Automated 3rdKind ssage] The system which generated this result transmitted reference range: 0.0 - 10.0 /100 WBCs. The reference range was not used to interpret this result as normal/abnormal. NRBC x10^3 (test code = 4178434577) See_Comment [Automated messa ge] The system which generated this result transmitted reference range: 10*3/?L. The reference range was not used to interpret this result as normal/abnormal. GRAN MAT (NEUT) % (test code = 770-8) 68.6 % IMM GRAN % (test code = 6020267078) 0.70 % LYMPH % (test code = 736-9) 19.8 % MONO % (test code = 5905-5) 5.3 % EOS % (test code = 713-8) 5.1 % BASO % (test code = 706-2) 0.5 % GRAN MAT x10^3(ANC) (test code = 5124731452) 5.08 10*3/uL 1.88-7.09 IMM GRAN x10^3 (test code = 4730684048) 0.05 10*3/uL 0.00-0.06 LYMPH x10^3 (test code = 731-0) 1.47 10*3/uL 1.32-3.29 MONO x10^3 (test code = 742-7) 0.39 10*3/uL 0.33-0.92 EOS x10^3 (test code = 711-2) 0.38 10*3/uL 0.03-0.39 BASO x10^3 (test code = 704-7) 0.04 10*3/uL 0.01-0.07 Lab Interpretation (test code = 75148-4) Abnormal [facility] WITH [id number] 17:18:52* Test Item Value Reference Range Interpretation [...] g/dL 31.6-35.1 L RDW-SD (test code = 69181-0) 46.2 fL 39.0-49.9 RDW-CV (test code = 788-0) 17.9 % 12.0-15.5 H PLT (test code = 777-3) 304 See_Comment [Automated messa ge] The system which generated this result transmitted reference range: 166 - 358 10*3/?L. The reference range was not used to interpret this result as normal/abnormal. MPV (test code = 75810-7) 11.0 fL 9.5-12.9 NRBC/100 WBC (test code = 8311693123) 0.0 See_Comment [Automated 3rdKind ssage] The system which generated this result transmitted reference range: 0.0 - 10.0 /100 WBCs. The reference range was not used to interpret this result as normal/abnormal. NRBC x10^3 (test code = 9326613932) See_Comment [Automated messa ge] The system which generated this result transmitted reference range: 10*3/?L. The reference range was not used to interpret this result as normal/abnormal. GRAN MAT (NEUT) % (test code = 770-8) 68.6 % IMM GRAN % (test code = 3588577733) 0.70 % LYMPH % (test code = 736-9) 19.8 % MONO % (test code = 5905-5) 5.3 % EOS % (test code = 713-8) 5.1 % BASO % (test code = 706-2) 0.5 % GRAN MAT x10^3(ANC) (test code = 5474141937) 5.08 10*3/uL 1.88-7.09 IMM GRAN x10^3 (test code = 1853326580) 0.05 10*3/uL 0.00-0.06 LYMPH x10^3 (test code = 731-0) 1.47 10*3/uL 1.32-3.29 MONO x10^3 (test code = 742-7) 0.39 10*3/uL 0.33-0.92 EOS x10^3 (test code = 711-2) 0.38 10*3/uL 0.03-0.39 BASO x10^3 (test code = 704-7) 0.04 10*3/uL 0.01-0.07 Lab Interpretation (test code = 56687-3) Abnormal [facility] WITH [id number] 17:18:52* Test Item Value Reference Range Interpretation [...] g/dL 31.6-35.1 L RDW-SD (test code = 02220-7) 46.2 fL 39.0-49.9 RDW-CV (test code = 788-0) 17.9 % 12.0-15.5 H PLT (test code = 777-3) 304 See_Comment [Automated mobilePeoplea ge] The system which generated this result transmitted reference range: 166 - 358 10*3/?L. The reference range was not used to interpret this result as normal/abnormal. MPV (test code = 53734-5) 11.0 fL 9.5-12.9 NRBC/100 WBC (test code = 3340597496) 0.0 See_Comment [Automated 3rdKind ssage] The system which generated this result transmitted reference range: 0.0 - 10.0 /100 WBCs. The reference range was not used to interpret this result as normal/abnormal. NRBC x10^3 (test code = 7360349408) See_Comment [Automated mobile[employer]] The system which generated this result transmitted reference range: 10*3/?L. The reference range was not used to interpret this result as normal/abnormal. GRAN MAT (NEUT) % (test code = 770-8) 68.6 % IMM GRAN % (test code = 6914484043) 0.70 % LYMPH % (test code = 736-9) 19.8 % MONO % (test code = 5905-5) 5.3 % EOS % (test code = 713-8) 5.1 % BASO % (test code = 706-2) 0.5 % GRAN MAT x10^3(ANC) (test code = 7883319357) 5.08 10*3/uL 1.88-7.09 IMM GRAN x10^3 (test code = 9416064446) 0.05 10*3/uL 0.00-0.06 LYMPH x10^3 (test code = 731-0) 1.47 10*3/uL 1.32-3.29 MONO x10^3 (test code = 742-7) 0.39 10*3/uL 0.33-0.92 EOS x10^3 (test code = 711-2) 0.38 10*3/uL 0.03-0.39 BASO x10^3 (test code = 704-7) 0.04 10*3/uL 0.01-0.07 Lab Interpretation (test code = 91061-1) Abnormal [facility] WITH [id number] 17:18:52* Test Item Value Reference Range Interpretation [...] g/dL 31.6-35.1 L RDW-SD (test code = 52182-6) 46.2 fL 39.0-49.9 RDW-CV (test code = 788-0) 17.9 % 12.0-15.5 H PLT (test code = 777-3) 304 See_Comment [Automated messa ge] The system which generated this result transmitted reference range: 166 - 358 10*3/?L. The reference range was not used to interpret this result as normal/abnormal. MPV (test code = 09285-9) 11.0 fL 9.5-12.9 NRBC/100 WBC (test code = 6415251155) 0.0 See_Comment [Automated 3rdKind ssage] The system which generated this result transmitted reference range: 0.0 - 10.0 /100 WBCs. The reference range was not used to interpret this result as normal/abnormal. NRBC x10^3 (test code = 7353058050) See_Comment [Automated messa ge] The system which generated this result transmitted reference range: 10*3/?L. The reference range was not used to interpret this result as normal/abnormal. GRAN MAT (NEUT) % (test code = 770-8) 68.6 % IMM GRAN % (test code = 7435345286) 0.70 % LYMPH % (test code = 736-9) 19.8 % MONO % (test code = 5905-5) 5.3 % EOS % (test code = 713-8) 5.1 % BASO % (test code = 706-2) 0.5 % GRAN MAT x10^3(ANC) (test code = 0880462603) 5.08 10*3/uL 1.88-7.09 IMM GRAN x10^3 (test code = 5604424034) 0.05 10*3/uL 0.00-0.06 LYMPH x10^3 (test code = 731-0) 1.47 10*3/uL 1.32-3.29 MONO x10^3 (test code = 742-7) 0.39 10*3/uL 0.33-0.92 EOS x10^3 (test code = 711-2) 0.38 10*3/uL 0.03-0.39 BASO x10^3 (test code = 704-7) 0.04 10*3/uL 0.01-0.07 Lab Interpretation (test code = 50225-6) Abnormal [facility] WITH [id number] 17:18:52* Test Item Value Reference Range Interpretation [...] g/dL 31.6-35.1 L RDW-SD (test code = 18536-5) 46.2 fL 39.0-49.9 RDW-CV (test code = 788-0) 17.9 % 12.0-15.5 H PLT (test code = 777-3) 304 See_Comment [Automated messa ge] The system which generated this result transmitted reference range: 166 - 358 10*3/?L. The reference range was not used to interpret this result as normal/abnormal. MPV (test code = 17982-3) 11.0 fL 9.5-12.9 NRBC/100 WBC (test code = 2320444787) 0.0 See_Comment [Automated 3[employer] ssage] The system which generated this result transmitted reference range: 0.0 - 10.0 /100 WBCs. The reference range was not used to interpret this result as normal/abnormal. NRBC x10^3 (test code = 4369445059) See_Comment [Automated messa ge] The system which generated this result transmitted reference range: 10*3/?L. The reference range was not used to interpret this result as normal/abnormal. GRAN MAT (NEUT) % (test code = 770-8) 68.6 % IMM GRAN % (test code = 1892547174) 0.70 % LYMPH % (test code = 736-9) 19.8 % MONO % (test code = 5905-5) 5.3 % EOS % (test code = 713-8) 5.1 % BASO % (test code = 706-2) 0.5 % GRAN MAT x10^3(ANC) (test code = 2776078444) 5.08 10*3/uL 1.88-7.09 IMM GRAN x10^3 (test code = 0269606416) 0.05 10*3/uL 0.00-0.06 LYMPH x10^3 (test code = 731-0) 1.47 10*3/uL 1.32-3.29 MONO x10^3 (test code = 742-7) 0.39 10*3/uL 0.33-0.92 EOS x10^3 (test code = 711-2) 0.38 10*3/uL 0.03-0.39 BASO x10^3 (test code = 704-7) 0.04 10*3/uL 0.01-0.07 Lab Interpretation (test code = 22587-3) Abnormal [facility] [id number] 16:24:00* Test Item Value Reference Range Interpretation Comme nts POCT PREG (test code = 1605) Negative On board controls acceptable with C Line (test code = 3574) Yes POCT PREG LOT # (test code = 3575) [id number] POCT PREG TEST DATE ( test code = 3576) 04-11-2024 Lab Interpretation (test cod e = 15300-1) Normal [facility] [id number] 16:24:00* Test Item Value Reference Range Interpretation Comme nts POCT PREG (test code = 1605) Negative On board controls acceptable with C Line (test code = 3574) Yes POCT PREG LOT # (test code = 3575) [id number] POCT PREG TEST DATE ( test code = 3576) 04-11-2024 Lab Interpretation (test cod e = 68013-2) Normal [facility] [id number] 16:24:00* Test Item Value Reference Range Interpretation Comme nts POCT PREG (test code = 1605) Negative On board controls acceptable with C Line (test code = 3574) Yes POCT PREG LOT # (test code = 3575) [id number] POCT PREG TEST DATE ( test code = 3576) 04-11-2024 Lab Interpretation (test cod e = 84169-2) [facility] [id number] 16:24:00* Test Item Value Reference Range Interpretation Comme nts POCT PREG (test code = 1605) Negative On board controls acceptable with C Line (test code = 3574) Yes POCT PREG LOT # (test code = 3575) [id number] POCT PREG TEST DATE ( test code = 3576) 04-11-2024 Lab Interpretation (test cod e = 71643-6) [facility] [id number] 16:24:00* Test Item Value Reference Range Interpretation Comme nts POCT PREG (test code = 1605) Negative On board controls acceptable with C Line (test code = 3574) Yes POCT PREG LOT # (test code = 3575) [id number] POCT PREG TEST DATE ( test code = 3576) 04-11-2024 Lab Interpretation (test cod e = 69087-3) [facility] [id number] 16:24:00* Test Item Value Reference Range Interpretation Comme nts POCT PREG (test code = 1605) Negative On board controls acceptable with C Line (test code = 3574) Yes POCT PREG LOT # (test code = 3575) [id number] POCT PREG TEST DATE ( test code = 3576) 04-11-2024 Lab Interpretation (test cod e = 89418-9) [facility] [id number] 16:24:00* Test Item Value Reference Range Interpretation Comme nts POCT PREG (test code = 1605) Negative On board controls acceptable with C Line (test code = 3574) Yes POCT PREG LOT # (test code = 3575) [id number] POCT PREG TEST DATE ( test code = 3576) 04-11-2024 Lab Interpretation (test cod e = 91617-0) [facility] [id number] 16:24:00* Test Item Value Reference Range Interpretation Comme nts POCT PREG (test code = 1605) Negative On board controls acceptable with C Line (test code = 3574) Yes POCT PREG LOT # (test code = 3575) [id number] POCT PREG TEST DATE ( test code = 3576) 04-11-2024 Lab Interpretation (test cod e = 20815-6) [facility] [id number] 16:24:00* Test Item Value Reference Range Interpretation Comme nts POCT PREG (test code = 1605) Negative On board controls acceptable with C Line (test code = 3574) Yes POCT PREG LOT # (test code = 3575) [id number] POCT PREG TEST DATE ( test code = 3576) 04-11-2024 Lab Interpretation (test cod e = 68177-6) [facility] [id number] 16:24:00* Test Item Value Reference Range Interpretation Comme nts POCT PREG (test code = 1605) Negative On board controls acceptable with C Line (test code = 3574) Yes POCT PREG LOT # (test code = 3575) [id number] POCT PREG TEST DATE ( test code = 3576) 04-11-2024 Lab Interpretation (test cod e = 10994-0) [facility] [id number] 16:24:00* Test Item Value Reference Range Interpretation Comme nts POCT PREG (test code = 1605) Negative On board controls acceptable with C Line (test code = 3574) Yes POCT PREG LOT # (test code = 3575) [id number] POCT PREG TEST DATE ( test code = 3576) 04-11-2024 Lab Interpretation (test cod e = 19022-0) [facility] [id number] 16:24:00* Test Item Value Reference Range Interpretation Comme nts POCT PREG (test code = 1605) Negative On board controls acceptable with C Line (test code = 3574) Yes POCT PREG LOT # (test code = 3575) [id number] POCT PREG TEST DATE ( test code = 3576) 04-11-2024 Lab Interpretation (test cod e = 94302-7) [facility] [id number] 16:24:00* Test Item Value Reference Range Interpretation Comme nts POCT PREG (test code = 1605) Negative On board controls acceptable with C Line (test code = 3574) Yes POCT PREG LOT # (test code = 3575) [id number] POCT PREG TEST DATE ( test code = 3576) 04-11-2024 Lab Interpretation (test cod e = 75879-1) [facility] [id number] 16:24:00* Test Item Value Reference Range Interpretation Comme nts POCT PREG (test code = 1605) Negative On board controls acceptable with C Line (test code = 3574) Yes POCT PREG LOT # (test code = 3575) [id number] POCT PREG TEST DATE ( test code = 3576) 04-11-2024 Lab Interpretation (test cod e = 80516-0) [facility] [id number] 16:24:00* Test Item Value Reference Range Interpretation Comme nts POCT PREG (test code = 1605) Negative On board controls acceptable with C Line (test code = 3574) Yes POCT PREG LOT # (test code = 3575) [id number] POCT PREG TEST DATE ( test code = 3576) 04-11-2024 Lab Interpretation (test cod e = 18273-9) [facility] [id number] 16:24:00* Test Item Value Reference Range Interpretation Comme nts POCT PREG (test code = 1605) Negative On board controls acceptable with C Line (test code = 3574) Yes POCT PREG LOT # (test code = 3575) [id number] POCT PREG TEST DATE ( test code = 3576) 04-11-2024 Lab Interpretation (test cod e = 65574-2) [facility] [id number] 16:24:00* Test Item Value Reference Range Interpretation Comme nts POCT PREG (test code = 1605) Negative On board controls acceptable with C Line (test code = 3574) Yes POCT PREG LOT # (test code = 3575) [id number] POCT PREG TEST DATE ( test code = 3576) 04-11-2024 Lab Interpretation (test cod e = 47730-6) [facility] [id number] 16:24:00* Test Item Value Reference Range Interpretation Comme nts POCT PREG (test code = 1605) Negative On board controls acceptable with C Line (test code = 3574) Yes POCT PREG LOT # (test code = 3575) [id number] POCT PREG TEST DATE ( test code = 3576) 04-11-2024 Lab Interpretation (test cod e = 60055-8) Normal [facility] ONLY CELIAC SCREEN [id number] 19:09:14 * Test Item Value Reference Range Interpretation Comme nts Tissue Transglutaminase (tTG) Ab, IgA Interpretation (test code = 46277-5) Negative Negative Deamidated Gliadin Peptide (DGP) Ab, IgA Interpretation (test code = 33301-1) Negative Negative Tissue Transglutaminase (tTG) Ab, IgA (test code = 2470260176) <=7.0 Deamidated Gliadin Peptide (DGP) Ab, IgA (test code = 5273764409) 0.4 U/mL <=7.0 ZAINAB (test code = ZAINAB) < 7 U/mL ? Negative7 - 10 U/mL ?Equivocal> 10 U/mL ?Positive In case of equivocal results, we recommend to retest the patient after 8 -12 weeks. Lab Interpretation (test code = 73539-0) Normal [facility] ONLY CELIAC SCREEN [id number] 19:09:14 * Test Item Value Reference Range Interpretation Comme nts Tissue Transglutaminase (tTG) Ab, IgA Interpretation (test code = 64022-5) Negative Negative Deamidated Gliadin Peptide (DGP) Ab, IgA Interpretation (test code = 87980-7) Negative Negative Tissue Transglutaminase (tTG) Ab, IgA (test code = 5756454157) <=7.0 Deamidated Gliadin Peptide (DGP) Ab, IgA (test code = 3738063373) 0.4 U/mL <=7.0 ZAINAB (test code = ZAINAB) < 7 U/mL ? Negative7 - 10 U/mL ?Equivocal> 10 U/mL ?Positive In case of equivocal results, we recommend to retest the patient after 8 -12 weeks. Lab Interpretation (test code = 32313-6) Normal [facility] ONLY CELIAC SCREEN [id number] 19:09:14 * Test Item Value Reference Range Interpretation Comme nts Tissue Transglutaminase (tTG) Ab, IgA Interpretation (test code = 66077-5) Negative Negative Deamidated Gliadin Peptide (DGP) Ab, IgA Interpretation (test code = 01238-7) Negative Negative Tissue Transglutaminase (tTG) Ab, IgA (test code = 3897064973) <=7.0 Deamidated Gliadin Peptide (DGP) Ab, IgA (test code = 7854906209) 0.4 U/mL <=7.0 ZAINAB (test code = ZANIAB) < 7 U/mL ? Negative7 - 10 U/mL ?Equivocal> 10 U/mL ?Positive In case of equivocal results, we recommend to retest the patient after 8 -12 weeks. Lab Interpretation (test code = 02446-2) Normal [facility] ONLY CELIAC SCREEN [id number] 19:09:14 * Test Item Value Reference Range Interpretation Comme nts Tissue Transglutaminase (tTG) Ab, IgA Interpretation (test code = 67663-6) Negative Negative Deamidated Gliadin Peptide (DGP) Ab, IgA Interpretation (test code = 28082-2) Negative Negative Tissue Transglutaminase (tTG) Ab, IgA (test code = 4632785323) <=7.0 Deamidated Gliadin Peptide (DGP) Ab, IgA (test code = 2932733626) 0.4 U/mL <=7.0 ZAINAB (test code = ZAINAB) < 7 U/mL ? Negative7 - 10 U/mL ?Equivocal> 10 U/mL ?Positive In case of equivocal results, we recommend to retest the patient after 8 -12 weeks. Lab Interpretation (test code = 38389-2) Normal [facility] ONLY CELIAC SCREEN [id number] 19:09:14 * Test Item Value Reference Range Interpretation Comme nts Tissue Transglutaminase (tTG) Ab, IgA Interpretation (test code = 17309-4) Negative Negative Deamidated Gliadin Peptide (DGP) Ab, IgA Interpretation (test code = 18873-0) Negative Negative Tissue Transglutaminase (tTG) Ab, IgA (test code = 3418906069) <=7.0 Deamidated Gliadin Peptide (DGP) Ab, IgA (test code = 5713882922) 0.4 U/mL <=7.0 ZAINAB (test code = ZAINAB) < 7 U/mL ? Negative7 - 10 U/mL ?Equivocal> 10 U/mL ?Positive In case of equivocal results, we recommend to retest the patient after 8 -12 weeks. Lab Interpretation (test code = 92251-7) Normal [facility] ONLY CELIAC SCREEN [id number] 19:09:14 * Test Item Value Reference Range Interpretation Comme nts Tissue Transglutaminase (tTG) Ab, IgA Interpretation (test code = 47109-7) Negative Negative Deamidated Gliadin Peptide (DGP) Ab, IgA Interpretation (test code = 22970-6) Negative Negative Tissue Transglutaminase (tTG) Ab, IgA (test code = 2505908728) <=7.0 Deamidated Gliadin Peptide (DGP) Ab, IgA (test code = 4086096796) 0.4 U/mL <=7.0 ZAINAB (test code = ZAINAB) < 7 U/mL ? Negative7 - 10 U/mL ?Equivocal> 10 U/mL ?Positive In case of equivocal results, we recommend to retest the patient after 8 -12 weeks. Lab Interpretation (test code = 18012-6) Normal [facility] ONLY CELIAC SCREEN [id number] 19:09:14 * Test Item Value Reference Range Interpretation Comme nts Tissue Transglutaminase (tTG) Ab, IgA Interpretation (test code = 77624-6) Negative Negative Deamidated Gliadin Peptide (DGP) Ab, IgA Interpretation (test code = 33335-1) Negative Negative Tissue Transglutaminase (tTG) Ab, IgA (test code = 4195896606) <=7.0 Deamidated Gliadin Peptide (DGP) Ab, IgA (test code = 5205584576) 0.4 U/mL <=7.0 ZAINAB (test code = ZAINAB) < 7 U/mL ? Negative7 - 10 U/mL ?Equivocal> 10 U/mL ?Positive In case of equivocal results, we recommend to retest the patient after 8 -12 weeks. Lab Interpretation (test code = 87454-0) Normal [facility] ONLY CELIAC SCREEN [id number] 19:09:14 * Test Item Value Reference Range Interpretation Comme nts Tissue Transglutaminase (tTG) Ab, IgA Interpretation (test code = 47185-9) Negative Negative Deamidated Gliadin Peptide (DGP) Ab, IgA Interpretation (test code = 04677-9) Negative Negative Tissue Transglutaminase (tTG) Ab, IgA (test code = 8368283240) <=7.0 Deamidated Gliadin Peptide (DGP) Ab, IgA (test code = 3228756237) 0.4 U/mL <=7.0 ZAINAB (test code = ZAINAB) < 7 U/mL ? Negative7 - 10 U/mL ?Equivocal> 10 U/mL ?Positive In case of equivocal results, we recommend to retest the patient after 8 -12 weeks. Lab Interpretation (test code = 31514-2) [facility] ONLY CELIAC SCREEN [id number] 19:09:14 * Test Item Value Reference Range Interpretation Comme nts Tissue Transglutaminase (tTG) Ab, IgA Interpretation (test code = 45411-1) Negative Negative Deamidated Gliadin Peptide (DGP) Ab, IgA Interpretation (test code = 29715-3) Negative Negative Tissue Transglutaminase (tTG) Ab, IgA (test code = 7944574896) <=7.0 Deamidated Gliadin Peptide (DGP) Ab, IgA (test code = 6129572508) 0.4 U/mL <=7.0 ZAINAB (test code = ZAINAB) < 7 U/mL ? Negative7 - 10 U/mL ?Equivocal> 10 U/mL ?Positive In case of equivocal results, we recommend to retest the patient after 8 -12 weeks. Lab Interpretation (test code = 00962-6) Normal [facility] ONLY CELIAC SCREEN [id number] 19:09:14 * Test Item Value Reference Range Interpretation Comme nts Tissue Transglutaminase (tTG) Ab, IgA Interpretation (test code = 91342-0) Negative Negative Deamidated Gliadin Peptide (DGP) Ab, IgA Interpretation (test code = 11623-1) Negative Negative Tissue Transglutaminase (tTG) Ab, IgA (test code = 3105964087) <=7.0 Deamidated Gliadin Peptide (DGP) Ab, IgA (test code = 1645632209) 0.4 U/mL <=7.0 ZAINAB (test code = ZAINAB) < 7 U/mL ? Negative7 - 10 U/mL ?Equivocal> 10 U/mL ?Positive In case of equivocal results, we recommend to retest the patient after 8 -12 weeks. Lab Interpretation (test code = 41699-7) Normal [facility] ONLY CELIAC SCREEN [id number] 19:09:14 * Test Item Value Reference Range Interpretation Comme nts Tissue Transglutaminase (tTG) Ab, IgA Interpretation (test code = 32596-8) Negative Negative Deamidated Gliadin Peptide (DGP) Ab, IgA Interpretation (test code = 27031-9) Negative Negative Tissue Transglutaminase (tTG) Ab, IgA (test code = 7380525951) <=7.0 Deamidated Gliadin Peptide (DGP) Ab, IgA (test code = 0748588418) 0.4 U/mL <=7.0 ZAINAB (test code = ZAINAB) < 7 U/mL ? Negative7 - 10 U/mL ?Equivocal> 10 U/mL ?Positive In case of equivocal results, we recommend to retest the patient after 8 -12 weeks. Lab Interpretation (test code = 11873-4) Normal [facility] ONLY CELIAC SCREEN [id number] 19:09:14 * Test Item Value Reference Range Interpretation Comme nts Tissue Transglutaminase (tTG) Ab, IgA Interpretation (test code = 69688-1) Negative Negative Deamidated Gliadin Peptide (DGP) Ab, IgA Interpretation (test code = 84927-1) Negative Negative Tissue Transglutaminase (tTG) Ab, IgA (test code = 8935386528) <=7.0 Deamidated Gliadin Peptide (DGP) Ab, IgA (test code = 8351581567) 0.4 U/mL <=7.0 ZAINAB (test code = ZAINAB) < 7 U/mL ? Negative7 - 10 U/mL ?Equivocal> 10 U/mL ?Positive In case of equivocal results, we recommend to retest the patient after 8 -12 weeks. Lab Interpretation (test code = 68475-7) Normal [facility] [id number] 20:24:44* Test Item Value Reference Range Interpretation Comme nts Total IgA (test code = 0237512905) 78.3 U/mL 70-312 Lab Interpretation (test cod e = 90329-6) Normal [facility] [id number] 20:24:44* Test Item Value Reference Range Interpretation Comme nts Total IgA (test code = 5154402772) 78.3 U/mL 70-312 Lab Interpretation (test cod e = 15348-5) Normal [facility] [id number] 20:24:44* Test Item Value Reference Range Interpretation Comme nts Total IgA (test code = 2222544171) 78.3 U/mL 70-312 Lab Interpretation (test cod e = 83513-2) Normal [facility] [id number] 20:24:44* Test Item Value Reference Range Interpretation Comme nts Total IgA (test code = 4846553200) 78.3 U/mL 70-312 Lab Interpretation (test cod e = 07284-6) Normal [facility] [id number] 20:24:44* Test Item Value Reference Range Interpretation Comme nts Total IgA (test code = 1689737554) 78.3 U/mL 70-312 Lab Interpretation (test cod e = 40165-3) Normal [facility] [id number] 20:24:44* Test Item Value Reference Range Interpretation Comme nts Total IgA (test code = 3385854773) 78.3 U/mL 70-312 Lab Interpretation (test cod e = 78028-5) Normal [facility] [id number] 20:24:44* Test Item Value Reference Range Interpretation Comme nts Total IgA (test code = 8844729597) 78.3 U/mL 70-312 Lab Interpretation (test cod e = 94838-7) Normal [facility] [id number] 20:24:44* Test Item Value Reference Range Interpretation Comme nts Total IgA (test code = 5320768542) 78.3 U/mL 70-312 Lab Interpretation (test cod e = 22282-2) Normal [facility] [id number] 20:24:44* Test Item Value Reference Range Interpretation Comme nts Total IgA (test code = 3293040323) 78.3 U/mL 70-312 Lab Interpretation (test cod e = 13244-3) Normal [facility] [id number] 20:24:44* Test Item Value Reference Range Interpretation Comme nts Total IgA (test code = 6770503563) 78.3 U/mL 70-312 Lab Interpretation (test cod e = 58417-3) Normal [facility] [id number] 20:24:44* Test Item Value Reference Range Interpretation Comme nts Total IgA (test code = 8641962224) 78.3 U/mL 70-312 Lab Interpretation (test cod e = 84795-1) Normal [facility] [id number] 20:24:44* Test Item Value Reference Range Interpretation Comme nts Total IgA (test code = 1960562087) 78.3 U/mL 70-312 Lab Interpretation (test cod e = 64785-9) [facility] [id number] 17:30:19* Test Item Value Reference Range Interpretation Comme nts FERRITIN (test code = 0612434721) 4.8 ng/mL 6.0-137.0 L ZAINAB (test code = ZAINAB) Biotin has been reported to cause a negative bias, interpret results relative to patient's use of biotin. Lab Interpretation (test code = 44124-7) [facility] [id number] 17:30:19* Test Item Value Reference Range Interpretation Comme nts FERRITIN (test code = 1639226926) 4.8 ng/mL 6.0-137.0 L ZAINAB (test code = ZAINAB) Biotin has been reported to cause a negative bias, interpret results relative to patient's use of biotin. Lab Interpretation (test code = 67315-4) Abnormal [facility] [id number] 17:30:19* Test Item Value Reference Range Interpretation Comme nts FERRITIN (test code = 0457760182) 4.8 ng/mL 6.0-137.0 L ZAINAB (test code = ZAINAB) Biotin has been reported to cause a negative bias, interpret results relative to patient's use of biotin. Lab Interpretation (test code = 16012-8) Abnormal [facility] [id number] 17:30:19* Test Item Value Reference Range Interpretation Comme nts FERRITIN (test code = 2515227238) 4.8 ng/mL 6.0-137.0 L ZAINAB (test code = ZAINAB) Biotin has been reported to cause a negative bias, interpret results relative to patient's use of biotin. Lab Interpretation (test code = 35479-6) Abnormal [facility] [id number] 17:30:19* Test Item Value Reference Range Interpretation Comme nts FERRITIN (test code = 3939530566) 4.8 ng/mL 6.0-137.0 L ZAINAB (test code = ZAINAB) Biotin has been reported to cause a negative bias, interpret results relative to patient's use of biotin. Lab Interpretation (test code = 14120-5) Abnormal [facility] [id number] 17:30:19* Test Item Value Reference Range Interpretation Comme nts FERRITIN (test code = 4169569544) 4.8 ng/mL 6.0-137.0 L ZAINAB (test code = ZAINAB) Biotin has been reported to cause a negative bias, interpret results relative to patient's use of biotin. Lab Interpretation (test code = 64091-4) Abnormal [facility] [id number] 17:30:19* Test Item Value Reference Range Interpretation Comme nts FERRITIN (test code = 4570338002) 4.8 ng/mL 6.0-137.0 L ZAINAB (test code = ZAINAB) Biotin has been reported to cause a negative bias, interpret results relative to patient's use of biotin. Lab Interpretation (test code = 02937-7) Abnormal [facility] [id number] 17:30:19* Test Item Value Reference Range Interpretation Comme nts FERRITIN (test code = 5939297580) 4.8 ng/mL 6.0-137.0 L ZAINAB (test code = ZAINAB) Biotin has been reported to cause a negative bias, interpret results relative to patient's use of biotin. Lab Interpretation (test code = 19741-5) Abnormal [facility] [id number] 17:30:19* Test Item Value Reference Range Interpretation Comme nts FERRITIN (test code = 3276062846) 4.8 ng/mL 6.0-137.0 L ZAINAB (test code = ZAINAB) Biotin has been reported to cause a negative bias, interpret results relative to patient's use of biotin. Lab Interpretation (test code = 66456-3) Abnormal [facility] [id number] 17:30:19* Test Item Value Reference Range Interpretation Comme nts FERRITIN (test code = 8715900521) 4.8 ng/mL 6.0-137.0 L ZAINAB (test code = ZAINAB) Biotin has been reported to cause a negative bias, interpret results relative to patient's use of biotin. Lab Interpretation (test code = 22178-1) Abnormal [facility] [id number] 17:30:19* Test Item Value Reference Range Interpretation Comme nts FERRITIN (test code = 8320920962) 4.8 ng/mL 6.0-137.0 L ZAINAB (test code = ZAINAB) Biotin has been reported to cause a negative bias, interpret results relative to patient's use of biotin. Lab Interpretation (test code = 76780-8) Abnormal [facility] [id number] 17:30:19* Test Item Value Reference Range Interpretation Comme nts FERRITIN (test code = 8473474612) 4.8 ng/mL 6.0-137.0 L ZAINAB (test code = ZAINAB) Biotin has been reported to cause a negative bias, interpret results relative to patient's use of biotin. Lab Interpretation (test code = 42611-4) Abnormal [facility]2023-09-07 17:03:34* Test Item Value Reference Range Interpretation Comme nts IRON (test code = 3386111701) 34 ug/dL 50-160 L TIBC (test code = 7253736591) 515 ug/dL 250-410 H % FE SAT (test code = 0514317977) 7 % 20-50 L Lab Interpretation (test cod e = 76872-2) Abnormal [facility]2023-09-07 17:03:34* Test Item Value Reference Range Interpretation Comme nts IRON (test code = 2271829414) 34 ug/dL 50-160 L TIBC (test code = 6334971953) 515 ug/dL 250-410 H % FE SAT (test code = 0616907502) 7 % 20-50 L Lab Interpretation (test cod e = 88200-5) Abnormal [facility]2023-09-07 17:03:34* Test Item Value Reference Range Interpretation Comme nts IRON (test code = 5657399935) 34 ug/dL 50-160 L TIBC (test code = 7491138996) 515 ug/dL 250-410 H % FE SAT (test code = 5026060774) 7 % 20-50 L Lab Interpretation (test cod e = 16433-9) Abnormal [facility]2023-09-07 17:03:34* Test Item Value Reference Range Interpretation Comme nts IRON (test code = 7519070233) 34 ug/dL 50-160 L TIBC (test code = 7362619863) 515 ug/dL 250-410 H % FE SAT (test code = 7231462561) 7 % 20-50 L Lab Interpretation (test cod e = 25742-4) Abnormal [facility]2023-09-07 17:03:34* Test Item Value Reference Range Interpretation Comme nts IRON (test code = 7419967884) 34 ug/dL 50-160 L TIBC (test code = 5590958744) 515 ug/dL 250-410 H % FE SAT (test code = 2086722821) 7 % 20-50 L Lab Interpretation (test cod e = 36739-1) Abnormal [facility]2023-09-07 17:03:34* Test Item Value Reference Range Interpretation Comme nts IRON (test code = 1354328387) 34 ug/dL 50-160 L TIBC (test code = 0448536162) 515 ug/dL 250-410 H % FE SAT (test code = 7464622530) 7 % 20-50 L Lab Interpretation (test cod e = 62964-2) Abnormal [facility]2023-09-07 17:03:34* Test Item Value Reference Range Interpretation Comme nts IRON (test code = 2031714420) 34 ug/dL 50-160 L TIBC (test code = 4796737184) 515 ug/dL 250-410 H % FE SAT (test code = 4532155053) 7 % 20-50 L Lab Interpretation (test cod e = 52104-7) Abnormal [facility]2023-09-07 17:03:34* Test Item Value Reference Range Interpretation Comme nts IRON (test code = 3173895966) 34 ug/dL 50-160 L TIBC (test code = 8538666647) 515 ug/dL 250-410 H % FE SAT (test code = 3348653017) 7 % 20-50 L Lab Interpretation (test cod e = 14109-3) Abnormal [facility]2023-09-07 17:03:34* Test Item Value Reference Range Interpretation Comme nts IRON (test code = 4254036295) 34 ug/dL 50-160 L TIBC (test code = 9528685856) 515 ug/dL 250-410 H % FE SAT (test code = 0098143719) 7 % 20-50 L Lab Interpretation (test cod e = 41835-4) Abnormal [facility]2023-09-07 17:03:34* Test Item Value Reference Range Interpretation Comme nts IRON (test code = 8366916793) 34 ug/dL 50-160 L TIBC (test code = 7328918664) 515 ug/dL 250-410 H % FE SAT (test code = 6521385292) 7 % 20-50 L Lab Interpretation (test cod e = 17984-4) Abnormal [facility]2023-09-07 17:03:34* Test Item Value Reference Range Interpretation Comme nts IRON (test code = 5544488557) 34 ug/dL 50-160 L TIBC (test code = 3344894198) 515 ug/dL 250-410 H % FE SAT (test code = 7925842450) 7 % 20-50 L Lab Interpretation (test cod e = 81214-2) Abnormal [facility]2023-09-07 17:03:34* Test Item Value Reference Range Interpretation Comme nts IRON (test code = 7597889289) 34 ug/dL 50-160 L TIBC (test code = 0878938558) 515 ug/dL 250-410 H % FE SAT (test code = 1782043845) 7 % 20-50 L Lab Interpretation (test cod e = 25553-5) Abnormal [facility]2023-08-24 19:48:06* Test Item Value Reference Range Interpretation Comme nts [place] (test code = 2554555668) 0.5 mmol/L 0.6-1.2 L ZAINAB (test code = ZAINAB) Toxic Range: ? Greater than 1.2 mmol/L Lab Interpretation (test code = 22021-0) Abnormal [facility]2023-08-24 19:48:06* Test Item Value Reference Range Interpretation Comme nts [place] (test code = 9261623816) 0.5 mmol/L 0.6-1.2 L ZAINAB (test code = ZAINAB) Toxic Range: ? Greater than 1.2 mmol/L Lab Interpretation (test code = 77937-0) Abnormal [facility]2023-08-24 19:48:06* Test Item Value Reference Range Interpretation Comme nts [place] (test code = 8511059424) 0.5 mmol/L 0.6-1.2 L ZAINAB (test code = ZAINAB) Toxic Range: ? Greater than 1.2 mmol/L Lab Interpretation (test code = 48641-1) Abnormal [facility]2023-08-24 19:48:06* Test Item Value Reference Range Interpretation Comme nts [place] (test code = 2409702978) 0.5 mmol/L 0.6-1.2 L ZAINAB (test code = ZAINAB) Toxic Range: ? Greater than 1.2 mmol/L Lab Interpretation (test code = 40434-5) Abnormal [facility]2023-08-24 19:48:06* Test Item Value Reference Range Interpretation Comme nts [place] (test code = 1024744974) 0.5 mmol/L 0.6-1.2 L ZAINAB (test code = ZAINAB) Toxic Range: ? Greater than 1.2 mmol/L Lab Interpretation (test code = 94909-3) Abnormal [facility]2023-08-24 19:48:06* Test Item Value Reference Range Interpretation Comme nts [place] (test code = 6695188127) 0.5 mmol/L 0.6-1.2 L ZAINAB (test code = ZAINAB) Toxic Range: ? Greater than 1.2 mmol/L Lab Interpretation (test code = 50795-3) Abnormal [facility]2023-08-24 19:48:06* Test Item Value Reference Range Interpretation Comme nts [place] (test code = 6729759838) 0.5 mmol/L 0.6-1.2 L ZAINAB (test code = ZAINAB) Toxic Range: ? Greater than 1.2 mmol/L Lab Interpretation (test code = 96322-8) Abnormal [facility]2023-08-24 19:48:06* Test Item Value Reference Range Interpretation Comme nts [place] (test code = 6628611433) 0.5 mmol/L 0.6-1.2 L ZAINAB (test code = ZAINAB) Toxic Range: ? Greater than 1.2 mmol/L Lab Interpretation (test code = 66412-8) Abnormal [facility]2023-08-24 19:48:06* Test Item Value Reference Range Interpretation Comme nts [place] (test code = 6783662875) 0.5 mmol/L 0.6-1.2 L ZAINAB (test code = ZAINAB) Toxic Range: ? Greater than 1.2 mmol/L Lab Interpretation (test code = 78139-9) Abnormal [facility]2023-08-24 19:48:06* Test Item Value Reference Range Interpretation Comme nts [place] (test code = 6625762868) 0.5 mmol/L 0.6-1.2 L ZAINAB (test code = ZAINAB) Toxic Range: ? Greater than 1.2 mmol/L Lab Interpretation (test code = 17108-4) Abnormal [facility]2023-08-24 19:48:06* Test Item Value Reference Range Interpretation Comme nts [place] (test code = 4050517745) 0.5 mmol/L 0.6-1.2 L ZAINAB (test code = ZAINAB) Toxic Range: ? Greater than 1.2 mmol/L Lab Interpretation (test code = 27323-6) Abnormal [facility]2023-08-24 19:48:06* Test Item Value Reference Range Interpretation Comme nts [place] (test code = 4774295677) 0.5 mmol/L 0.6-1.2 L ZAINAB (test code = ZAINAB) Toxic Range: ? Greater than 1.2 mmol/L Lab Interpretation (test code = 86582-0) Abnormal [facility]2023-08-24 19:48:06* Test Item Value Reference Range Interpretation Comme nts [place] (test code = 3448510772) 0.5 mmol/L 0.6-1.2 L ZAINAB (test code = ZAINAB) Toxic Range: ? Greater than 1.2 mmol/L Lab Interpretation (test code = 13814-5) Abnormal [facility]2023-08-24 19:48:06* Test Item Value Reference Range Interpretation Comme nts [place] (test code = 6055283138) 0.5 mmol/L 0.6-1.2 L ZAINAB (test code = ZAINAB) Toxic Range: ? Greater than 1.2 mmol/L Lab Interpretation (test code = 87198-1) [facility] [id number] 17:24:34 * Test Item Value Reference Range Interpretation Comme nts TSH (test code = 7629922104) 1.07 See_Comment [Automated messa ge] The system which generated this result transmitted reference range: 0.45 - 4.70 mIU/L. The reference range was not used to interpret this result as normal/abnormal. Lab Interpretation (test code = 90611-0) [facility] [id number] 17:24:34 * Test Item Value Reference Range Interpretation Comme nts TSH (test code = 4522664436) 1.07 See_Comment [Automated messa ge] The system which generated this result transmitted reference range: 0.45 - 4.70 mIU/L. The reference range was not used to interpret this result as normal/abnormal. Lab Interpretation (test code = 08908-9) Normal [facility] [id number] 17:24:34 * Test Item Value Reference Range Interpretation Comme nts TSH (test code = 3046880784) 1.07 See_Comment [Automated messa ge] The system which generated this result transmitted reference range: 0.45 - 4.70 mIU/L. The reference range was not used to interpret this result as normal/abnormal. Lab Interpretation (test code = 90032-8) Normal [facility] [id number] 17:24:34 * Test Item Value Reference Range Interpretation Comme nts TSH (test code = 5843464510) 1.07 See_Comment [Automated messa ge] The system which generated this result transmitted reference range: 0.45 - 4.70 mIU/L. The reference range was not used to interpret this result as normal/abnormal. Lab Interpretation (test code = 75832-3) Normal [facility] [id number] 17:24:34 * Test Item Value Reference Range Interpretation Comme nts TSH (test code = 5717405933) 1.07 See_Comment [Automated messa ge] The system which generated this result transmitted reference range: 0.45 - 4.70 mIU/L. The reference range was not used to interpret this result as normal/abnormal. Lab Interpretation (test code = 04776-3) [facility] [id number] 17:24:34 * Test Item Value Reference Range Interpretation Comme nts TSH (test code = 0396563471) 1.07 See_Comment [Automated messa ge] The system which generated this result transmitted reference range: 0.45 - 4.70 mIU/L. The reference range was not used to interpret this result as normal/abnormal. Lab Interpretation (test code = 19630-8) [facility] [id number] 17:24:34 * Test Item Value Reference Range Interpretation Comme nts TSH (test code = 4280665589) 1.07 See_Comment [Automated messa ge] The system which generated this result transmitted reference range: 0.45 - 4.70 mIU/L. The reference range was not used to interpret this result as normal/abnormal. Lab Interpretation (test code = 05126-0) Normal [facility] [id number] 17:24:34 * Test Item Value Reference Range Interpretation Comme nts TSH (test code = 0792793774) 1.07 See_Comment [Automated messa ge] The system which generated this result transmitted reference range: 0.45 - 4.70 mIU/L. The reference range was not used to interpret this result as normal/abnormal. Lab Interpretation (test code = 80066-7) Normal [facility] [id number] 17:24:34 * Test Item Value Reference Range Interpretation Comme nts TSH (test code = 9565604895) 1.07 See_Comment [Automated messa ge] The system which generated this result transmitted reference range: 0.45 - 4.70 mIU/L. The reference range was not used to interpret this result as normal/abnormal. Lab Interpretation (test code = 07772-5) Normal [facility] [id number] 17:24:34 * Test Item Value Reference Range Interpretation Comme nts TSH (test code = 5225723343) 1.07 See_Comment [Automated messa ge] The system which generated this result transmitted reference range: 0.45 - 4.70 mIU/L. The reference range was not used to interpret this result as normal/abnormal. Lab Interpretation (test code = 77569-1) [facility] [id number] 17:24:34 * Test Item Value Reference Range Interpretation Comme nts TSH (test code = 0719683144) 1.07 See_Comment [Automated messa ge] The system which generated this result transmitted reference range: 0.45 - 4.70 mIU/L. The reference range was not used to interpret this result as normal/abnormal. Lab Interpretation (test code = 65059-3) [facility] [id number] 17:24:34 * Test Item Value Reference Range Interpretation Comme nts TSH (test code = 9448537214) 1.07 See_Comment [Automated messa ge] The system which generated this result transmitted reference range: 0.45 - 4.70 mIU/L. The reference range was not used to interpret this result as normal/abnormal. Lab Interpretation (test code = 09531-6) Normal [facility] [id number] 17:24:34 * Test Item Value Reference Range Interpretation Comme nts TSH (test code = 6692074765) 1.07 See_Comment [Automated messa ge] The system which generated this result transmitted reference range: 0.45 - 4.70 mIU/L. The reference range was not used to interpret this result as normal/abnormal. Lab Interpretation (test code = 79783-7) Normal [facility] [id number] 17:24:34 * Test Item Value Reference Range Interpretation Comme nts TSH (test code = 0626504683) 1.07 See_Comment [Automated messa ge] The system which generated this result transmitted reference range: 0.45 - 4.70 mIU/L. The reference range was not used to interpret this result as normal/abnormal. Lab Interpretation (test code = 95564-3) Normal [facility]. METABOLIC PANEL (14939)2022-10-05 16:54:48* Test Item Value Reference Range Interpretation Comme nts NA (test code = 1493869799) 140 mmol/L 135-145 K (test code = 9885059945) 4.6 mmol/L 3.5-5.0 CL (test code = 9885144016) 106 mmol/L 98-108 CO2 TOTAL (test code = 3569344460) 28 mmol/L 23-31 AGAP (test code = 0978284090) 6 2-16 BUN (test code = 3639280779) 5 mg/dL 7-23 L GLUCOSE (test code = 9333837783) 90 mg/dL 70-110 CREATININE (test code = 4617881281) 0.54 mg/dL 0.50-1.04 TOTAL BILI (test code = 6833693632) 0.1 mg/dL 0.1-1.1 CALCIUM (test code = 0012538003) 9.6 mg/dL 8.6-10.6 T PROTEIN (test code = 6391782883) 6.2 g/dL 6.3-8.2 L ALBUMIN (test code = 4836970411) 4.0 g/dL 3.5-5.0 ALK PHOS (test code = 0787901786) 125 U/L 34-122 H ALTv (test code = 1742-6) 29 U/L 5-35 AST(SGOT) (test code = 8899691669) 24 U/L 13-40 eGFR (test code = 8828974941) 122.1 mL/min/1.73m2 ZAINAB (test code = ZAINAB) [...] imaging tests). Lab Interpretation (test code = 43162-9) [facility] (20556)(TOTAL CHOLESTEROL, TRIGLYCERIDES, HDL)2022-10-05 16:54:48* Test Item Value Reference Range Interpretation Comme nts CHOL (test code = 1965321083) 183 mg/dL 120-200 HDL (test code = 1765597977) 40 mg/dL >=50 L HDLC RATIO (test code = 9387171026) 4.6 <=4.5 H TRIG (test code = 7380937190) 128 mg/dL 30-170 LDL CHOL (test code = 97187-5) 117 mg/dL <=160 VLDL (test code = 6585940253) 26 mg/dL 5-60 Lab Interpretation (test cod e = 48864-0) [facility]normal [facility]OL[facility] (73324)2022-10-05 16:54:48* Test Item Value Reference Range Interpretation Comme nts NA (test code = 9649660974) 140 mmol/L 135-145 K (test code = 3842951530) 4.6 mmol/L 3.5-5.0 CL (test code = 4399222134) 106 mmol/L 98-108 CO2 TOTAL (test code = 5195619153) 28 mmol/L 23-31 AGAP (test code = 9879889421) 6 2-16 BUN (test code = 7507913925) 5 mg/dL 7-23 L GLUCOSE (test code = 3415890752) 90 mg/dL 70-110 CREATININE (test code = 0655745895) 0.54 mg/dL 0.50-1.04 TOTAL BILI (test code = 5179040282) 0.1 mg/dL 0.1-1.1 CALCIUM (test code = 9224026331) 9.6 mg/dL 8.6-10.6 T PROTEIN (test code = 2961651705) 6.2 g/dL 6.3-8.2 L ALBUMIN (test code = 4958117714) 4.0 g/dL 3.5-5.0 ALK PHOS (test code = 1363037674) 125 U/L 34-122 H ALTv (test code = 1742-6) 29 U/L 5-35 AST(SGOT) (test code = 8254259625) 24 U/L 13-40 eGFR (test code = 6978764139) 122.1 mL/min/1.73m2 ZAINAB (test code = ZAINAB) [...] imaging tests). Lab Interpretation (test code = 39169-3) [facility]normal [facility] (23631)(TOTAL CHOLESTEROL, TRIGLYCERIDES, HDL)2022-10-05 16:54:48* Test Item Value Reference Range Interpretation Comme nts CHOL (test code = 4946133664) 183 mg/dL 120-200 HDL (test code = 7262251585) 40 mg/dL >=50 L HDLC RATIO (test code = 1935773740) 4.6 <=4.5 H TRIG (test code = 2794767262) 128 mg/dL 30-170 LDL CHOL (test code = 73888-3) 117 mg/dL <=160 VLDL (test code = 6391234591) 26 mg/dL 5-60 Lab Interpretation (test cod e = 71008-0) [facility]normal [facility] (59205)2022-10-05 16:54:48* Test Item Value Reference Range Interpretation Comme nts NA (test code = 4430851214) 140 mmol/L 135-145 K (test code = 3764465695) 4.6 mmol/L 3.5-5.0 CL (test code = 3082397178) 106 mmol/L 98-108 CO2 TOTAL (test code = 3511843418) 28 mmol/L 23-31 AGAP (test code = 4539333092) 6 2-16 BUN (test code = 1178617944) 5 mg/dL 7-23 L GLUCOSE (test code = 0291008897) 90 mg/dL 70-110 CREATININE (test code = 4045738643) 0.54 mg/dL 0.50-1.04 TOTAL BILI (test code = 4762798405) 0.1 mg/dL 0.1-1.1 CALCIUM (test code = 3058583341) 9.6 mg/dL 8.6-10.6 T PROTEIN (test code = 5996461746) 6.2 g/dL 6.3-8.2 L ALBUMIN (test code = 0695563357) 4.0 g/dL 3.5-5.0 ALK PHOS (test code = 1885972216) 125 U/L 34-122 H ALTv (test code = 1742-6) 29 U/L 5-35 AST(SGOT) (test code = 2871008754) 24 U/L 13-40 eGFR (test code = 9259068296) 122.1 mL/min/1.73m2 ZAINAB (test code = ZAINAB) [...] imaging tests). Lab Interpretation (test code = 39273-9) [facility]normal [facility] (99350)(TOTAL CHOLESTEROL, TRIGLYCERIDES, HDL)2022-10-05 16:54:48* Test Item Value Reference Range Interpretation Comme nts CHOL (test code = 4237820628) 183 mg/dL 120-200 HDL (test code = 5091040221) 40 mg/dL >=50 L HDLC RATIO (test code = 8719475228) 4.6 <=4.5 H TRIG (test code = 6365992556) 128 mg/dL 30-170 LDL CHOL (test code = 06495-5) 117 mg/dL <=160 VLDL (test code = 5872215661) 26 mg/dL 5-60 Lab Interpretation (test cod e = 92592-6) [facility]normal [facility] (10200)(TOTAL CHOLESTEROL, TRIGLYCERIDES, HDL)2022-10-05 16:54:48* Test Item Value Reference Range Interpretation Comme nts CHOL (test code = 8834613474) 183 mg/dL 120-200 HDL (test code = 9843486648) 40 mg/dL >=50 L HDLC RATIO (test code = 9432323026) 4.6 <=4.5 H TRIG (test code = 2632907838) 128 mg/dL 30-170 LDL CHOL (test code = 07508-7) 117 mg/dL <=160 VLDL (test code = 1334392063) 26 mg/dL 5-60 Lab Interpretation (test cod e = 44442-5) [facility]normal [facility] (50638)(TOTAL CHOLESTEROL, TRIGLYCERIDES, HDL)2022-10-05 16:54:48* Test Item Value Reference Range Interpretation Comme nts CHOL (test code = 9285327336) 183 mg/dL 120-200 HDL (test code = 1331919319) 40 mg/dL >=50 L HDLC RATIO (test code = 0652791436) 4.6 <=4.5 H TRIG (test code = 1970673678) 128 mg/dL 30-170 LDL CHOL (test code = 61760-5) 117 mg/dL <=160 VLDL (test code = 0776610625) 26 mg/dL 5-60 Lab Interpretation (test cod e = 02767-1) [facility]normal [facility] (62150)(TOTAL CHOLESTEROL, TRIGLYCERIDES, HDL)2022-10-05 16:54:48* Test Item Value Reference Range Interpretation Comme nts CHOL (test code = 0504393988) 183 mg/dL 120-200 HDL (test code = 1678768781) 40 mg/dL >=50 L HDLC RATIO (test code = 9761902461) 4.6 <=4.5 H TRIG (test code = 7216562280) 128 mg/dL 30-170 LDL CHOL (test code = 59987-1) 117 mg/dL <=160 VLDL (test code = 9779580968) 26 mg/dL 5-60 Lab Interpretation (test cod e = 37388-4) [facility]normal [facility] (24010)(TOTAL CHOLESTEROL, TRIGLYCERIDES, HDL)2022-10-05 16:54:48* Test Item Value Reference Range Interpretation Comme nts CHOL (test code = 3406612054) 183 mg/dL 120-200 HDL (test code = 6831454128) 40 mg/dL >=50 L HDLC RATIO (test code = 6131791659) 4.6 <=4.5 H TRIG (test code = 5185303162) 128 mg/dL 30-170 LDL CHOL (test code = 52438-4) 117 mg/dL <=160 VLDL (test code = 7499964996) 26 mg/dL 5-60 Lab Interpretation (test cod e = 42762-6) [facility]normal [facility] (30324)(TOTAL CHOLESTEROL, TRIGLYCERIDES, HDL)2022-10-05 16:54:48* Test Item Value Reference Range Interpretation Comme nts CHOL (test code = 9875442023) 183 mg/dL 120-200 HDL (test code = 8137872236) 40 mg/dL >=50 L HDLC RATIO (test code = 5783659974) 4.6 <=4.5 H TRIG (test code = 6019758815) 128 mg/dL 30-170 LDL CHOL (test code = 25324-6) 117 mg/dL <=160 VLDL (test code = 1702697033) 26 mg/dL 5-60 Lab Interpretation (test cod e = 31675-9) Abnormal [facility] (34525)(TOTAL CHOLESTEROL, TRIGLYCERIDES, HDL)2022-10-05 16:54:48* Test Item Value Reference Range Interpretation Comme nts CHOL (test code = 9281332792) 183 mg/dL 120-200 HDL (test code = 6762397303) 40 mg/dL >=50 L HDLC RATIO (test code = 4504139283) 4.6 <=4.5 H TRIG (test code = 6288202848) 128 mg/dL 30-170 LDL CHOL (test code = 23850-8) 117 mg/dL <=160 VLDL (test code = 0654432318) 26 mg/dL 5-60 Lab Interpretation (test cod e = 26667-1) [facility]normal [facility] (64271)(TOTAL CHOLESTEROL, TRIGLYCERIDES, HDL)2022-10-05 16:54:48* Test Item Value Reference Range Interpretation Comme nts CHOL (test code = 1277950673) 183 mg/dL 120-200 HDL (test code = 7711714805) 40 mg/dL >=50 L HDLC RATIO (test code = 4901832056) 4.6 <=4.5 H TRIG (test code = 4754440129) 128 mg/dL 30-170 LDL CHOL (test code = 70861-4) 117 mg/dL <=160 VLDL (test code = 7846358849) 26 mg/dL 5-60 Lab Interpretation (test cod e = 11685-5) [facility]normal [facility] (60221)(TOTAL CHOLESTEROL, TRIGLYCERIDES, HDL)2022-10-05 16:54:48* Test Item Value Reference Range Interpretation Comme nts CHOL (test code = 9513638280) 183 mg/dL 120-200 HDL (test code = 7838789151) 40 mg/dL >=50 L HDLC RATIO (test code = 9855875269) 4.6 <=4.5 H TRIG (test code = 5604460242) 128 mg/dL 30-170 LDL CHOL (test code = 14535-2) 117 mg/dL <=160 VLDL (test code = 7392857514) 26 mg/dL 5-60 Lab Interpretation (test cod e = 60740-5) [facility]normal [facility] (42293)(TOTAL CHOLESTEROL, TRIGLYCERIDES, HDL)2022-10-05 16:54:48* Test Item Value Reference Range Interpretation Comme nts CHOL (test code = 2589560662) 183 mg/dL 120-200 HDL (test code = 1532678150) 40 mg/dL >=50 L HDLC RATIO (test code = 2624367605) 4.6 <=4.5 H TRIG (test code = 0992319756) 128 mg/dL 30-170 LDL CHOL (test code = 20277-6) 117 mg/dL <=160 VLDL (test code = 9385471632) 26 mg/dL 5-60 Lab Interpretation (test cod e = 14830-5) [facility]normal [facility] (51505)(TOTAL CHOLESTEROL, TRIGLYCERIDES, HDL)2022-10-05 16:54:48* Test Item Value Reference Range Interpretation Comme nts CHOL (test code = 2791574814) 183 mg/dL 120-200 HDL (test code = 6423059691) 40 mg/dL >=50 L HDLC RATIO (test code = 3070059232) 4.6 <=4.5 H TRIG (test code = 2182176184) 128 mg/dL 30-170 LDL CHOL (test code = 83577-4) 117 mg/dL <=160 VLDL (test code = 5568945953) 26 mg/dL 5-60 Lab Interpretation (test cod e = 92567-9) [facility]normal [facility] (64305)(TOTAL CHOLESTEROL, TRIGLYCERIDES, HDL)2022-10-05 16:54:48* Test Item Value Reference Range Interpretation Comme nts CHOL (test code = 9263827873) 183 mg/dL 120-200 HDL (test code = 2036617676) 40 mg/dL >=50 L HDLC RATIO (test code = 4916362348) 4.6 <=4.5 H TRIG (test code = 9581547606) 128 mg/dL 30-170 LDL CHOL (test code = 51521-1) 117 mg/dL <=160 VLDL (test code = 6891832417) 26 mg/dL 5-60 Lab Interpretation (test cod e = 81577-3) [facility]normal [facility]A1C)2022-10-05 15:51:11* Test Item Value Reference Range Interpretation Comme nts HGB A1C (test code = 4548-4) 5.1 % 4.0-5.7 ZAINAB (test code = ZAINAB) Reference RangesNormal: <5.7%Prediabetes: 5.7 - 6.4%Diabetes: > 6.5% Lab Interpretation (test code = 88322-7) Normal [facility]C)2022-10-05 15:51:11* Test Item Value Reference Range Interpretation Comme nts HGB A1C (test code = 4548-4) 5.1 % 4.0-5.7 ZAINAB (test code = ZAINAB) Reference RangesNormal: <5.7%Prediabetes: 5.7 - 6.4%Diabetes: > 6.5% Lab Interpretation (test code = 50811-5) Normal [facility]C)2022-10-05 15:51:11* Test Item Value Reference Range Interpretation Comme nts HGB A1C (test code = 4548-4) 5.1 % 4.0-5.7 ZAINAB (test code = ZAINAB) Reference RangesNormal: <5.7%Prediabetes: 5.7 - 6.4%Diabetes: > 6.5% Lab Interpretation (test code = 65794-5) Normal [facility]2022-10-05 15:51:11* Test Item Value Reference Range Interpretation Comme nts HGB A1C (test code = 4548-4) 5.1 % 4.0-5.7 ZAINAB (test code = ZAINAB) Reference RangesNormal: <5.7%Prediabetes: 5.7 - 6.4%Diabetes: > 6.5% Lab Interpretation (test code = 77407-4) [facility] 15:51:11* Test Item Value Reference Range Interpretation Comme nts HGB A1C (test code = 4548-4) 5.1 % 4.0-5.7 ZAINAB (test code = ZAINAB) Reference RangesNormal: <5.7%Prediabetes: 5.7 - 6.4%Diabetes: > 6.5% Lab Interpretation (test code = 83640-7) [facility]05 15:51:11* Test Item Value Reference Range Interpretation Comme nts HGB A1C (test code = 4548-4) 5.1 % 4.0-5.7 ZAINAB (test code = ZAINAB) Reference RangesNormal: <5.7%Prediabetes: 5.7 - 6.4%Diabetes: > 6.5% Lab Interpretation (test code = 60345-0) [facility]05 15:51:11* Test Item Value Reference Range Interpretation Comme nts HGB A1C (test code = 4548-4) 5.1 % 4.0-5.7 ZAINAB (test code = ZAINAB) Reference RangesNormal: <5.7%Prediabetes: 5.7 - 6.4%Diabetes: > 6.5% Lab Interpretation (test code = 81809-0) [facility]05 15:51:11* Test Item Value Reference Range Interpretation Comme nts HGB A1C (test code = 4548-4) 5.1 % 4.0-5.7 ZAINAB (test code = ZAINAB) Reference RangesNormal: <5.7%Prediabetes: 5.7 - 6.4%Diabetes: > 6.5% Lab Interpretation (test code = 32850-9) [facility]05 15:51:11* Test Item Value Reference Range Interpretation Comme nts HGB A1C (test code = 4548-4) 5.1 % 4.0-5.7 ZAINAB (test code = ZAINAB) Reference RangesNormal: <5.7%Prediabetes: 5.7 - 6.4%Diabetes: > 6.5% Lab Interpretation (test code = 08310-8) [facility]05 15:51:11* Test Item Value Reference Range Interpretation Comme nts HGB A1C (test code = 4548-4) 5.1 % 4.0-5.7 ZAINAB (test code = ZAINAB) Reference RangesNormal: <5.7%Prediabetes: 5.7 - 6.4%Diabetes: > 6.5% Lab Interpretation (test code = 91622-0) [facility]05 15:51:11* Test Item Value Reference Range Interpretation Comme nts HGB A1C (test code = 4548-4) 5.1 % 4.0-5.7 ZAINAB (test code = ZAINAB) Reference RangesNormal: <5.7%Prediabetes: 5.7 - 6.4%Diabetes: > 6.5% Lab Interpretation (test code = 66513-1) [facility]05 15:51:11* Test Item Value Reference Range Interpretation Comme nts HGB A1C (test code = 4548-4) 5.1 % 4.0-5.7 ZAINAB (test code = ZAINAB) Reference RangesNormal: <5.7%Prediabetes: 5.7 - 6.4%Diabetes: > 6.5% Lab Interpretation (test code = 89294-8) [facility]05 15:51:11* Test Item Value Reference Range Interpretation Comme nts HGB A1C (test code = 4548-4) 5.1 % 4.0-5.7 ZAINAB (test code = ZAINAB) Reference RangesNormal: <5.7%Prediabetes: 5.7 - 6.4%Diabetes: > 6.5% Lab Interpretation (test code = 19326-1) [facility] 15:51:11* Test Item Value Reference Range Interpretation Comme nts HGB A1C (test code = 4548-4) 5.1 % 4.0-5.7 ZAINAB (test code = ZAINAB) Reference RangesNormal: <5.7%Prediabetes: 5.7 - 6.4%Diabetes: > 6.5% Lab Interpretation (test code = 63624-9) Normal [facility] WITH [id number] 15:20:32* Test Item Value Reference Range Interpretation Comme nts WBC (test code = 6690-2) 6.67 See_Comment [Automated messa ge] The system which generated this result transmitted reference range: 4.30 - 11.10 10*3/?L. The reference range was not used to interpret this result as normal/abnormal. RBC (test code = 789-8) 4.04 See_Comment [Automated mobilePeoplea ge] The system which generated this result [...] g/dL 31.6-35.1 L RDW-SD (test code = 43661-7) 47.8 fL 39.0-49.9 RDW-CV (test code = 788-0) 18.0 % 12.0-15.5 H PLT (test code = 777-3) 296 See_Comment [Automated messa ge] The system which generated this result transmitted reference range: 166 - 358 10*3/?L. The reference range was not used to interpret this result as normal/abnormal. MPV (test code = 59986-9) 10.7 fL 9.5-12.9 NRBC/100 WBC (test code = 9696333726) 0.0 See_Comment [Automated me ssage] The system which generated this result transmitted reference range: 0.0 - 10.0 /100 WBCs. The reference range was not used to interpret this result as normal/abnormal. NRBC x10^3 (test code = 7882852114) See_Comment [Automated messa ge] The system which generated this result transmitted reference range: 10*3/?L. The reference range was not used to interpret this result as normal/abnormal. GRAN MAT (NEUT) % (test code = 770-8) 70.0 % IMM GRAN % (test code = 2707206362) 0.40 % LYMPH % (test code = 736-9) 18.7 % MONO % (test code = 5905-5) 5.7 % EOS % (test code = 713-8) 4.5 % BASO % (test code = 706-2) 0.7 % GRAN MAT x10^3(ANC) (test code = 2413632783) 4.66 10*3/uL 1.88-7.09 IMM GRAN x10^3 (test code = [id number]) 0.03 10*3/uL 0.00-0.06 LYMPH x10^3 (test code = 731-0) 1.25 10*3/uL 1.32-3.29 L MONO x10^3 (test code = 742-7) 0.38 10*3/uL 0.33-0.92 EOS x10^3 (test code = 711-2) 0.30 10*3/uL 0.03-0.39 BASO x10^3 (test code = 704-7) 0.05 10*3/uL 0.01-0.07 Lab Interpretation (test code = 10898-2) Abnormal [facility] WITH [id number] 15:20:32* Test Item Value Reference Range Interpretation [...] g/dL 31.6-35.1 L RDW-SD (test code = 49092-1) 47.8 fL 39.0-49.9 RDW-CV (test code = 788-0) 18.0 % 12.0-15.5 H PLT (test code = 777-3) 296 See_Comment [Automated mobilePeoplea ge] The system which generated this result transmitted reference range: 166 - 358 10*3/?L. The reference range was not used to interpret this result as normal/abnormal. MPV (test code = 51516-1) 10.7 fL 9.5-12.9 NRBC/100 WBC (test code = 8770979752) 0.0 See_Comment [Automated 3rdKind ssage] The system which generated this result transmitted reference range: 0.0 - 10.0 /100 WBCs. The reference range was not used to interpret this result as normal/abnormal. NRBC x10^3 (test code = 3173272184) See_Comment [Automated mobilePeoplea ge] The system which generated this result transmitted reference range: 10*3/?L. The reference range was not used to interpret this result as normal/abnormal. GRAN MAT (NEUT) % (test code = 770-8) 70.0 % IMM GRAN % (test code = 5031682112) 0.40 % LYMPH % (test code = 736-9) 18.7 % MONO % (test code = 5905-5) 5.7 % EOS % (test code = 713-8) 4.5 % BASO % (test code = 706-2) 0.7 % GRAN MAT x10^3(ANC) (test code = 5812353044) 4.66 10*3/uL 1.88-7.09 IMM GRAN x10^3 (test code = 5459851874) 0.03 10*3/uL 0.00-0.06 LYMPH x10^3 (test code = 731-0) 1.25 10*3/uL 1.32-3.29 L MONO x10^3 (test code = 742-7) 0.38 10*3/uL 0.33-0.92 EOS x10^3 (test code = 711-2) 0.30 10*3/uL 0.03-0.39 BASO x10^3 (test code = 704-7) 0.05 10*3/uL 0.01-0.07 Lab Interpretation (test code = 63005-2) Abnormal [facility] WITH ZJNT7252-96-86 15:20:32* Test Item Value Reference Range Interpretation Comme nts WBC (test code = 6690-2) 6.67 See_Comment [Automated mobilePeoplea ge] The system which generated this result transmitted reference range: 4.30 - 11.10 10*3/?L. The reference range was not used to interpret this result as normal/abnormal. RBC (test code = 789-8) 4.04 See_Comment [Automated mobilePeoplea Indotrading] The system which generated this result transmitted [...] g/dL 31.6-35.1 L RDW-SD (test code = 98671-9) 47.8 fL 39.0-49.9 RDW-CV (test code = 788-0) 18.0 % 12.0-15.5 H PLT (test code = 777-3) 296 See_Comment [Automated messa ge] The system which generated this result transmitted reference range: 166 - 358 10*3/?L. The reference range was not used to interpret this result as normal/abnormal. MPV (test code = 51698-5) 10.7 fL 9.5-12.9 NRBC/100 WBC (test code = 9686392887) 0.0 See_Comment [Automated me ssage] The system which generated this result transmitted reference range: 0.0 - 10.0 /100 WBCs. The reference range was not used to interpret this result as normal/abnormal. NRBC x10^3 (test code = 9160253926) See_Comment [Automated messa ge] The system which generated this result transmitted reference range: 10*3/?L. The reference range was not used to interpret this result as normal/abnormal. GRAN MAT (NEUT) % (test code = 770-8) 70.0 % IMM GRAN % (test code = 4029330669) 0.40 % LYMPH % (test code = 736-9) 18.7 % MONO % (test code = 5905-5) 5.7 % EOS % (test code = 713-8) 4.5 % BASO % (test code = 706-2) 0.7 % GRAN MAT x10^3(ANC) (test code = 6339746741) 4.66 10*3/uL 1.88-7.09 IMM GRAN x10^3 (test code = 5489412679) 0.03 10*3/uL 0.00-0.06 LYMPH x10^3 (test code = 731-0) 1.25 10*3/uL 1.32-3.29 L MONO x10^3 (test code = 742-7) 0.38 10*3/uL 0.33-0.92 EOS x10^3 (test code = 711-2) 0.30 10*3/uL 0.03-0.39 BASO x10^3 (test code = 704-7) 0.05 10*3/uL 0.01-0.07 Lab Interpretation (test code = 36629-3) Abnormal [facility]2023-06-14 17:27:33* Test Item Value Reference Range Interpretation Comme nts [place] (test code = 3801444700) 0.3 mmol/L 0.6-1.2 L ZAINAB (test code = ZAINAB) Toxic Range: ? Greater than 1.2 mmol/L Lab Interpretation (test code = 35073-8) Abnormal [facility]2023-06-14 17:27:33* Test Item Value Reference Range Interpretation Comme nts [place] (test code = 8148280545) 0.3 mmol/L 0.6-1.2 L ZAINAB (test code = ZAINAB) Toxic Range: ? Greater than 1.2 mmol/L Lab Interpretation (test code = 30978-9) Abnormal [facility]2023-06-14 17:27:33* Test Item Value Reference Range Interpretation Comme nts [place] (test code = 1202820821) 0.3 mmol/L 0.6-1.2 L ZAINAB (test code = ZAINAB) Toxic Range: ? Greater than 1.2 mmol/L Lab Interpretation (test code = 78388-5) Abnormal [facility]2023-06-14 17:27:33* Test Item Value Reference Range Interpretation Comme nts [place] (test code = 5282624765) 0.3 mmol/L 0.6-1.2 L ZAINAB (test code = ZAINAB) Toxic Range: ? Greater than 1.2 mmol/L Lab Interpretation (test code = 33151-2) Abnormal [facility]2023-06-14 17:27:33* Test Item Value Reference Range Interpretation Comme nts [place] (test code = 0831666552) 0.3 mmol/L 0.6-1.2 L ZAINAB (test code = ZAINAB) Toxic Range: ? Greater than 1.2 mmol/L Lab Interpretation (test code = 75564-8) Abnormal [facility]2023-06-14 17:27:33* Test Item Value Reference Range Interpretation Comme nts [place] (test code = 9354239075) 0.3 mmol/L 0.6-1.2 L ZAINAB (test code = ZAINAB) Toxic Range: ? Greater than 1.2 mmol/L Lab Interpretation (test code = 82734-4) Abnormal [facility]2023-06-14 17:27:33* Test Item Value Reference Range Interpretation Comme nts [place] (test code = 0140560904) 0.3 mmol/L 0.6-1.2 L ZAINAB (test code = ZAINAB) Toxic Range: ? Greater than 1.2 mmol/L Lab Interpretation (test code = 26321-5) Abnormal [facility]2023-06-14 17:27:33* Test Item Value Reference Range Interpretation Comme nts [place] (test code = 2972170038) 0.3 mmol/L 0.6-1.2 L ZAINAB (test code = ZAINAB) Toxic Range: ? Greater than 1.2 mmol/L Lab Interpretation (test code = 87549-9) Abnormal [facility]2023-06-14 17:27:33* Test Item Value Reference Range Interpretation Comme nts [place] (test code = 1523419729) 0.3 mmol/L 0.6-1.2 L ZAINAB (test code = ZAINAB) Toxic Range: ? Greater than 1.2 mmol/L Lab Interpretation (test code = 87604-7) Abnormal [facility]2023-06-14 17:27:33* Test Item Value Reference Range Interpretation Comme nts [place] (test code = 0686812896) 0.3 mmol/L 0.6-1.2 L ZAINAB (test code = ZAINAB) Toxic Range: ? Greater than 1.2 mmol/L Lab Interpretation (test code = 96818-7) Abnormal [place] [address]-06-14 17:27:33* Test Item Value Reference Range Interpretation Comme nts [place] (test code = 1372842244) 0.3 mmol/L 0.6-1.2 L ZAINAB (test code = ZAINAB) Toxic Range: ? Greater than 1.2 mmol/L Lab Interpretation (test code = 88682-0) Abnormal [facility]2023-06-14 17:27:33* Test Item Value Reference Range Interpretation Comme nts [place] (test code = 0403863369) 0.3 mmol/L 0.6-1.2 L ZAINAB (test code = ZAINAB) Toxic Range: ? Greater than 1.2 mmol/L Lab Interpretation (test code = 63193-1) [facility] VCDLYOHJO3635-42-20 06:12:05* Test Item Value Reference Range Interpretation [...] 0.00-0.10 ABS NUCLEATED RBCS (test code = 30836) 0.00 K/UL 0.00-0.11 RETICULOCYTE WITH PTBURDQG0289-86-42 06:12:05* Test Item Value Reference Range Interpretation Comme nts RETICULOCYTE COUNT (test code = 1018) 2.50 % 0.80-2.40 H ABSOLUTE RETICULOCYTE (test code = 15043) 103.3 K/UL 32.0-105.0 [facility] has important pathology staff changes effective 04/12/2022. New pathology staff will provide uninterrupted, excellent patient care and clinical consultation. See URL: [email or web address]. UNLESS OTHERWISE INDICATED, ALL TESTING PERFORMED AT [facility] [address] [place] [address] [employer] TECHNICIAN: CHARLA HERNANDEZ M.D. CLIA NUMBER [id number] [facility] [place]. [id number] YAZMIN NON-REFLEX TO [id number] 05:55:49* Test Item Value Reference Range Interpretation Comme [facility] ANTI-NUCLEAR ANTIBODIES (test code = 3506) NEGATIVE NEGATIVE METHODOLOGY IS I NDIRECT IMMUNOFLUORESCENT ASSAY (IFA) WITH HUMAN EPITHELIAL (HEP-2) CELL LINE SUBSTRATE. FOLATE, [id number] 12:42:51* Test Item Value Reference Range Interpretation [...] . . . NG/ML >1504 TSH, THIRD KIFXXMCOUY9853-60-75 11:05:54* Test Item Value Reference Range Interpretation Comme [facility] TSH, THIRD GENERATION (test code = 2821) 1.310 UIU/ML 0.400-4.100 VITAMIN [id number] 11:05:54* Test Item Value Reference Range Interpretation Comme [facility] VITAMIN B-12 (test code = 2840) 436 PG/ML 200-950 VITAMIN D, 25 [id number] 11:03:45* Test Item Value Reference Range Interpretation Comme [facility] VITAMIN D, 25 [...] . . . . . NG/ML 30-100 [facility] has important pathology staff changes effective 04/12/2022. New pathology staff will provide uninterrupted, excellent patient care and clinical consultation. See URL: [email or web address]. UNLESS OTHERWISE INDICATED, ALL TESTING PERFORMED AT [facility] [address] [place] [address] [employer] TECHNICIAN: CHARLA HERNANDEZ M.D. CLIA NUMBER [id number] [facility] [place]. [id number] URIC [id number] 05:28:57* Test Item Value Reference Range Interpretation Comme [facility] URIC ACID (test code = 2233) 6.7 MG/DL 2.7-6.1 H COMPREHENSIVE METABOLIC [id number] 05:28:57* Test Item Value Reference Range Interpretation Comme [facility] GLUCOSE (test code = 2217) 103 MG/DL 70-99 H BUN (test code = 2208) 9 MG/DL 6-20 CREATININE (test code = 2214) 0.72 MG/DL 0.60-1.30 eGFR (2020 CKD-EPI) (test code = 43080) 106 ML/MIN/1.73 >60 CALC BUN/CREAT (test code [...] (test code = 2218) 26 U/L 5-40 LIPID [id number] 05:28:57* Test Item Value Reference Range Interpretation Comme nts CHOLESTEROL (test code = 0) 207 MG/DL <200 H TRIGLYCERIDES (test code = 2) 130 MG/DL <150 HDL CHOLESTEROL (test code = 2219) 45 MG/DL >39 CALC LDL CHOL (test code = 2236) 137 MG/DL <100 H NOTE: CALCULATED LDL IS BASED ON DOMINIQUE-PEREZ METHOD WHICHINCLUDES ADJUSTABLE TRIGLYCERIDE:VLDL CHOLESTEROL RATIO.THIS FACTOR VARIES BY MEASURED TRIGLYCERIDE AND NON-HDLCHOLESTEROL CONCENTRATIONS WITH INCREASED CALCULATED LDL SEENIN HIGHER TRIGLYCERIDE OR LOWER NON-HDL SPECIMENS. FOR MOREINFORMATION, SEE CLIENT ANNOUNCEMENT AT [email or web address] RATIO LDL/HDL (test code = 2237) 3.04 RATIO <3.22 HEMOGLOBIN [id number] 02:54:46* Test Item Value Reference Range Interpretation Comme nts HEMOGLOBIN A1c (test code = 57493) 5.6 % 4.2-5.6 CBC W/AUTO DIFF WITH NIURSFAEV4430-28-94 01:58:18* Test Item Value Reference Range Interpretation [...] = 1065) 0.0 /100 WBC'S See_Comment [Automated mobilePeoplea ge] The system which generated this result [...] 0.00-0.10 ABS NUCLEATED RBCS (test code = 67909) 0.00 K/UL 0.00-0.11 [id number] 20:05:22* Test Item Value Reference Range Interpretation Comme nts [place] (test code = 9642874671) 1.1 mmol/L 0.6-1.2 ZAINAB (test code = ZAINAB) Toxic Range: ? Greater than 1.2 mmol/L Lab Interpretation (test code = 81251-3) [place] [address]-01-04 20:05:22* Test Item Value Reference Range Interpretation Comme nts [place] (test code = 0956158399) 1.1 mmol/L 0.6-1.2 ZAINAB (test code = ZAINAB) Toxic Range: ? Greater than 1.2 mmol/L Lab Interpretation (test code = 71066-0) [address]01-04 20:05:22* Test Item Value Reference Range Interpretation Comme nts [place] (test code = 5874960400) 1.1 mmol/L 0.6-1.2 ZAINAB (test code = ZAINAB) Toxic Range: ? Greater than 1.2 mmol/L Lab Interpretation (test code = 12564-1) [address]01-04 20:05:22* Test Item Value Reference Range Interpretation Comme nts [place] (test code = 8134526206) 1.1 mmol/L 0.6-1.2 ZAINAB (test code = ZAINAB) Toxic Range: ? Greater than 1.2 mmol/L Lab Interpretation (test code = 38186-7) [place] [address]-01-04 20:05:22* Test Item Value Reference Range Interpretation Comme nts [place] (test code = 0130958200) 1.1 mmol/L 0.6-1.2 ZAINAB (test code = ZAINAB) Toxic Range: ? Greater than 1.2 mmol/L Lab Interpretation (test code = 77058-9) [address]01-04 20:05:22* Test Item Value Reference Range Interpretation Comme nts [place] (test code = 1078387944) 1.1 mmol/L 0.6-1.2 ZAINAB (test code = ZAINAB) Toxic Range: ? Greater than 1.2 mmol/L Lab Interpretation (test code = 48102-2) [place] [address]-01-04 20:05:22* Test Item Value Reference Range Interpretation Comme nts [place] (test code = 1944625957) 1.1 mmol/L 0.6-1.2 ZAINAB (test code = ZAINAB) Toxic Range: ? Greater than 1.2 mmol/L Lab Interpretation (test code = 05586-0) [facility]2023-01-04 20:05:22* Test Item Value Reference Range Interpretation Comme nts [place] (test code = 5530608114) 1.1 mmol/L 0.6-1.2 ZAINAB (test code = ZAINAB) Toxic Range: ? Greater than 1.2 mmol/L Lab Interpretation (test code = 58605-8) [facility]2023-01-04 20:05:22* Test Item Value Reference Range Interpretation Comme nts [place] (test code = 4334322064) 1.1 mmol/L 0.6-1.2 ZAINAB (test code = ZAINAB) Toxic Range: ? Greater than 1.2 mmol/L Lab Interpretation (test code = 03862-9) [facility]2023-01-04 20:05:22* Test Item Value Reference Range Interpretation Comme nts [place] (test code = 5394654812) 1.1 mmol/L 0.6-1.2 ZAINAB (test code = ZAINAB) Toxic Range: ? Greater than 1.2 mmol/L Lab Interpretation (test code = 38183-5) [facility] 07:27:00* Test Item Value [...] mg/dL VERY HIGH.........>/= 190 mg/dL Comments to [employer]: ADD TO AM LABSLIPID PROFILE (CORONARY RISK)2018-07-20 [...] code = LDL) MG/DL 0-99 Comments to [employer]: ADD TO AM LABSPROTHROMBIN [id number] 06:24:00* Test Item Value Reference Range Interpretation [...] systemic embolism. 3.0 - 4.5 Comments to [employer]: NURSE WILL BRING SPECIMEN TO LABPTT ACTIVATED 2018-07-20 06:24:00* Test Item Value Reference Range Interpretation Comme nts PTT ACTIVATED (test code = APTT) 29.3 SECONDS 22.0-33.0 N Comments to [employer]per: NURSE WILL BRING SPECIMEN TO LABBASIC METABOLIC [...] CA) 9.6 MG/DL 8.4-10.2 N Comments to [employer] Helper: NURSE WILL BRING SPECIMEN TO LAB Comments to [employer] Helper: NURSE WILL BRING SPECIMEN TO [id number] 06:13:00* Test Item Value Reference Range Interpretation Comme nts MAGNESIUM (test code = MAG) 2.2 MG/DL 1.6-2.3 N Comments to [employer]: NURSE WILL BRING SPECIMEN TO LAB Comments to [employer] Helper: NURSE WILL BRING SPECIMEN TO LABCBC W/AUTO [id number] 06:02:00 * Test Item Value Reference Range [...] 0.0-0.1 N Notes Date/Time Note Provider Source 2023-05-14 11:48:54 Rvh6OxiGk2g81vAUS8n6 nJ+GX6z4BVo3H 5+OvWRiDsI8FFUeILnoBhHltar1naxY27 05-06-00T11:48:54 Gastroenterolgy appt has been placed. 29077-4Ouwarqnpl encounter FkndYJ5602-47-89P33:49:10Telephon e encounter NoteTXT1.2.840.919382.1.13.104.2. 7.2.854234|[id number] for patient tggq68670-1NuzsFFEADXXORAOKhlwwas ed C-CDA narrative fhta042031822Sclrjj J [place] [address] 573GPKLZSIFSRLUUTEQTJRCJV9031-54- 01T11:49:101.2.840.244294.1.72.3. 15|1.2.840.207955.1.13.104.2.7.2. 727879_[id number] Jessica Pang [facility] 2023-05-11 16:55:45 /Tp5B60ZbHbMM4DgWU0c LXtTQDoerwDv0 x6LR29fYorIB1omwU5k/EiTFtd2Md9I79 05-05-28T16:55:45 I called patient to follow-up from her call on 05/09/23. Patient will get her PCP to put in an order for the Iron infusion, which he (PCP) stated she did need as per labs he ordered. Her present c/o rapid changes in bowel function from constipation to explosive diarrhea and other sx she reported on 05/08 have not been addressed. I requested PSS make patient appointment with Dr. Boston for these symptoms. 99375-2Zqvbccjek encounter HeybEE7458-29-86T27:06:28Telephon e encounter NoteTXT1.2.840.362266.1.13.104.2. 7.2.889740|[id number] for patient ajdp43044-0SprfGWVBTSEDDCDPygjezr ed C-CDA narrative omew234696640Klqoclf L Allen [address]TXTX[address] 173QDTUOXMDRILLTOJONYRKFP4483-29- 29T17:06:281.2.840.188472.1.72.3. 15|1.2.840.469210.1.13.104.2.7.2. 727879_[id number] Kath Westbrook RN [facility] 2023-05-09 16:58:43 xX/stYMkBonMB7psKF/q v4pFH4c4Ux3pi MMQ076Xz8KpvwG5uQekQanh1YDs/dfk20 05-05-26T16:58:43 Pt called about her Iron infusion needed. GI provider requested patient's PCP follow up with this request. At initial visit, patient's GI provider did order Iron Infusion:11/23/22: Order for MONOFERRIC infusion sent to [facility], fax # [phone]. Fax was confirmed as received.The above information will be faxed to patient's PCP.For Dr. Cordero:Patient also reports she is feeling nauseated and her bowel movements change from constipation to explosive diarrhea very quickly. Patient states this has been going on for the past 2 months. Patient went to ER and was told she has impaction in imaging. Patient is not eating much. She states pain comes on suddenly and subsides with BM, and always feels fatigued. Pt denies fever and vomiting. Patient was taking sucralfate and Omeprazole. Omeparazole was Rxd on 02/15/23 but is not on Med list?Patient requests sooner appointment than 07/26/23 and for refills of medications that can help her. 74057-1Fhhqctmhn encounter RdumCG0220-87-71S68:14:57Telephon e encounter NoteTXT1.2.840.906637.1.13.104.2. 7.2.824010|[id number] for patient ymat07763-2DmjsACHEILGVROHBdykoso ed C-CDA narrative xjzi094748765Tpqwzvp L Allen RN[address] UpvjVeelxmghsBuglrfkxuFWMO9134263 419UJNQIVQEUZGEINBSQGGOZM7742-66- 27T17:14:571.2.840.520626.1.72.3. 15|1.2.840.195943.1.13.104.2.7.2. 727879_[id number] Kath Westbrook RN [facility] 2023-03-09 09:11:36 7BFKvEDKGf8iqVWivBVY HqYEmw6GRpoaI FIyeql6cZXXaWs/FgHabHNM9auuMq4c89 07-03-25T09:11:36 I called patient to relay her GI provider's msg. Patient understands and asked if I could send last order for iron infusion to show her PCP so it can be done thru their office. Last order was sent to patient's MyChart as per her request. 66419-8Xirklgvfq encounter PzouBD6509-40-91H51:20:32Telephon e encounter NoteTXT1.2.840.983667.1.13.104.2. 7.2.214443|[id number] for patient haxt39258-3NabtUYBJDRVHTZCKzmhfsb ed C-CDA narrative loeq432532345Pzyckza L Allen RN[address] EfnfNfsktovkzXktwxjbdeCBPX5499956 303IPGVOWXNDETVEIMEWBTZRM7841-34- 26T09:20:321.2.840.293172.1.72.3. 15|1.2.840.781876.1.13.104.2.7.2. 727879_[id number] Kath Westbrook RN [facility] 2023-03-09 08:51:07 oRRAI4cy+dpo1IiZuCDr IE2ukz8Hr/QmJ kweu8sKfVoZashE7BkpClMA/tFAYEdG30 07-03-25T08:51:07 Hedl chase I would but I think her PCP should be able to do this and because of previous issues with the order will let them handle it. It should be possible for PCP to do it if they put in a little effort 73427-2Jeejphoei encounter FdfvHG7301-42-94I54:52:03Telephon e encounter NoteTXT1.2.840.123768.1.13.104.2. 7.2.951946|[id number] for patient vwxi25504-0GbyeQGJNYYTPNOHQzkqpmg ed C-CDA narrative textUT[address] AhbiKbpptjkcdFtyhfkqceNZVT9836945 542URFLHVLHEGLPPWWUQMENOD9266-87- 26T08:52:031.2.840.458447.1.72.3. 15|1.2.840.149380.1.13.104.2.7.2. 727879_[id number] [facility] 2023-03-08 16:20:43 7/oq6DU9lk2pAqD06ICH Ds/2TDyirS2DW QquthYne7GIuGadoaZxs4kziMOnxKLz32 07-03-24T16:20:43 I called patient who stated she received a chart msg from Dr. Cordero stating her iron was low and recommended she take infusion. Patient needs another referral for the iron infusion at [facility]. Patient stated her PCP has no clue on how to order infusion. Patient states GI provider did put in the last order that was done at [facility].11/23/22: Order for MONOFERRIC infusion sent to [facility], fax # [phone]. Fax was confirmed as received. 81769-4Jhyezsjtt encounter SzdcNK9294-23-75W41:42:41Telephon e encounter NoteTXT1.2.840.859050.1.13.104.2. 7.2.467463|[id number] for patient xzxa31391-5EpbtDNUQDRUQQDRKvzcvqi ed C-CDA narrative ysbf789117031Xgjxodm L Allen RN[address]TX[address] 107QNGRDNEHJDMWGELVDGCRNI2666-55- 25T16:42:411.2.840.772884.1.72.3. 15|1.2.840.382215.1.13.104.2.7.2. 727879_[id number] Kath Westbrook RN [facility] 2023-03-08 15:42:27 ccMZm02upqWnKB8tWaTI ortDnBCphGz08 uYEd6mnvxWkT0IhAmV+aUDSE8VQdBZi64 07-03-24T15:42:27 Shivani Schuler is a 47 year old femalePt is calling requesting for referral [facility] in regards to getting iron infusion done. Please call the pt to discuss. Please advise. 37163-9Enwtxydbu encounter FrdcJM3766-02-62O10:45:39Telephon e encounter NoteTXT1.2.840.928814.1.13.104.2. 7.2.269630|[id number] for patient cfys99382-6NgkgZMYLZYTEKUVElbksba ed C-CDA narrative idhu205992326Thnjegypop R [facility] 427CLCLIKVMENCMJBGLXHSRSN3566-30- 25T15:45:391.2.840.913670.1.72.3. 15|1.2.840.519565.1.13.104.2.7.2. 727879_[id number] Daxa Scott [facility] 2023-02-15 10:30:00 lPZjDAcumnDvLMHVaP2R wDxYfXUbt91Yc JHdNEYg+flfQdzbcrmOJqp3hZZyhK0s34 07-03-03T10:30:00 Images from the original note were not included.Venipuncture collection performed by clean technique on the right anticubitus and back of left hand. Total of 2 attempts were made. Slight pressure and a bandage/dressing were applied to the site(s). The patient experienced no complications. The following specimens were processed according to instructions and sent to [facility] laboratories per lab order on 02/15/2023:LT BLUESST 1REDLAVPPTDK GREEN (LiHep)DK GREEN (SodH)GRAYDK BLUE (K2)DK BLUE (S)ACDBlood CultureNIPT/NTD 71697-1Cdyfx DfiuTG7081-44-85P32:31:50Nurse NoteTXT1.2.840.819703.1.13.104.2. 7.2.290347|[id number] for patient dkkx50694-1Yptaa NoteLNNARRATIVEFormatted C-CDA narrative textUT[address] QwvwIhvhpbfmxYwwvmfwapZFFF7315785 976QQENNAFHFUQNAPCKMFUHVY6672-07- 04T10:31:501.2.840.507647.1.72.3. 15|1.2.840.138244.1.13.104.2.7.2. 727879_[id number] [facility] 2023-01-12 21:52:03 tuM7nQS3t8nCLDb8dkzi 6o349tenv1Kid kFlRw0gqhdUJzoP2VJimGza8wqS/lIf20 03-02-01T21:52:03 Dr. Muftah,Please call patient and see how we can help. ED precautions if worsening symptoms.Sreeram 19699-7Ycelgbswj encounter LlonED5174-69-67L81:52:03Telephon e encounter NoteTXT1.2.840.841195.1.13.104.2. 7.2.291542|[id number] for patient kbyu24222-0ZimwCDIGELXBFFFDlxgvko ed C-CDA narrative textIM-GASTROENTEROLOGY STAFF-GASTROENTEROLOGY STAFF[address] Deru[id number] 192EVZDSDLOYIQRCJQAHPOFEK0537-17- 01T21:52:031.2.840.692146.1.72.3. 15|1.2.840.009022.1.13.104.2.7.2. [id number] IM-GASTROENTEROLOGY STAFF [facility] 2022-10-19 08:30:00 te18HxdpHcll2mQKM1G6 NISC68jowkC2T 5w5WhwdCCR7IJbQFEfvOdURKjihMvOR69 04-11-06T08:30:00 Images from the original note were not included.Venipuncture collection performed by clean technique on the left anticubitus. Total of 1 attempts were made. Slight pressure and a bandage/dressing were applied to the site(s). The patient experienced no complications. The following specimens were processed according to instructions and sent to [facility] laboratories LT BLUE Lt Green SST 2 RED LAV PPT DK GREEN (L) DK GREEN (S)/// Fibrosure set BLUE,SST & LAV SUE DK BLUE (K2) DK BLUE (S) ACD RST BLOOD CULTURE NIPT or ALLOSURE VERIFYNOW URINE URINE CULTURE APTIMA URINE STOOL Monogram Z plasma preservative tube (call lab for tube)[facility] Vasoactive Intestinal Peptide (call lab for tube)[facility] 04551-6Scprj XcdnAU5477-83-59T20:36:26Nurse NoteTXT1.2.840.013574.1.13.104.2. 7.2.537220|[id number] for patient pysx99069-2Pisxc AyorNN062130296Cqxfsel Noa [id number] 782HEMFRRPJFAEUFRBDONJSUX8726-60- 07T08:36:261.2.840.447153.1.72.3. 15|1.2.840.280592.1.13.104.2.7.2. [id number] Samantha Rosales [facility] 2022-10-05 10:15:00 bnZsrKOnfD3bWXkvtuNh l2TXykAmCHw42 yZj3aRHzOVuq2f2mz0Lx4ymLUYXnG3s03 05-10-23T10:15:00 Images from the original note were not included.Venipuncture collection performed by clean technique on the left anticubitus. Total of 1 attempts were made. Slight pressure and a bandage/dressing were applied to the site(s). The patient experienced no complications. The following specimens were processed according to instructions and sent to [facility] laboratories per lab order on 10/05/2022: LT BLUE SST 1 RED LAV 2 PPT DK GREEN (LiHep) DK GREEN (SodH) SUE DK BLUE (K2) DK BLUE (S) ACD Blood Culture NIPT/NTD [id number] YvfjIW0564-73-76B88:17:14Nurse NoteTXT1.2.840.441215.1.13.104.2. 7.2.465088|[id number] for patient qatv31023-9Nihwd Note[id number] 101VQFAGIGXZVPUGCMQNQJDJD4630-44- 24T10:17:141.2.840.768435.1.72.3. 15|1.2.840.635703.1.13.104.2.7.2. [id number] [facility] 2018-07-20 06:55:00 IOzfzggnlbs70019871E AFGSAZocQG/aF oSCbcdQrJZV1ugvr8PZMlaAQncAjnv5MS tL3AsWjyDw3bcIKF26865-93-14W36:55 :[id number] [place] [address] PATIENT NAME: SHIVANI SCHULER ADMIT DATE: 07/20/18ACCOUNT NO: [id number] ROOM NO: AGE: 43 REPORT TYPE: CARDIAC CATHETERIZATION REPORT SEX: F ADMITTING PHYSICIAN: ATTENDING PHYSICIAN:Thea Harper MD PROCEDURE DATE: 07/20/2018 INTEGRATED CIRCUIT LAYOUT DESIGNER: Thea Harper MD TITLE OF THE PROCEDURE: [...] common femoral artery area for localanesthesia. A 6-[place] sheath was placed in the right common [...] no complications. [facility] to be discharged later on today on medical therapy PATIENT NAME: SHIVANI SCHULER and risk factor modification. Dictated By: Thea Harper MD WT: CATH:ADRIANA/KIAN/RIGOBERTODD: 07/20/2018 06:55:03DT: 07/20/2018 07:17:37Conf#: [id number]/DID#: [id number] Authenticated by Thea Harper MD On 07/20/2018 08:15:22 AM at 0815 PATIENT NAME: SHIVANI SCHULER Hbup8891-45-51U04:17:00Z.RWB42791 608-0036AVAvailable for patient odbfZCHSRJWSSYFBVL1995-56-27K59:1 5:56 [facility] 2018-07-20 06:06:00 ELldgxqdwew92059770q QhhAW25jWedrS 3ybKnJ8HGnuk2YT4RMxcxErYVBiQGHNWv +ani+PeoZnWh6ISCC1234-28-64C61:06 :[id number] [place] [address] PATIENT NAME: SHIVANI SCHULER ADMIT DATE: 07/20/18ACCOUNT NO: [id number] ROOM NO: AGE: 43 REPORT TYPE: ELECTROCARDIOGRAM SEX: F ADMITTING PHYSICIAN: ATTENDING PHYSICIAN:Thea Harper MD Order:[id number] Reason : CAD Test Date/Time Stamp:SunJul 20 [...] HARPER at 0921 PATIENT NAME: SHIVANI SCHULER . [id number] for patient vvviWBCTOZINPWMQJQ8831-16-60M37:2 2:04 [facility] 2018-07-19 18:55:00 NVtclmzymhg09517182z Wx9MOOPzUl1qv LGHtssMD2ioKpCg9LIhS7Rf59ZBxbuYuz uU69k3nRNSDcBZq6W1706-35-04B11:55 :[id number] [place] [address] PATIENT NAME: SHIVANI SCHULER ADMIT DATE: 07/20/18ACCOUNT NO: [id number] ROOM NO: AGE: 43 REPORT TYPE: HISTORY AND PHYSICAL SEX: F ADMITTING PHYSICIAN: ATTENDING PHYSICIAN:Thea Harper MD ADMISSION DATE: 07/20/2018 INTEGRATED CIRCUIT LAYOUT DESIGNER: Thea Harper MD REASON FOR ADMISSION: Chest [...] patient. Dictated By: Thea Harper MD WT: HP:TRAVIS/KIAN/NTSDD: 07/19/2018 18:55:38DT: 07/19/2018 19:52:26Conf#: [id number]/DID#: [id number] by Thea Harper MD On 07/25/2018 07:20:46 AM at 0721 PATIENT NAME: SHIVANI SCHULER and physical sbjfdkziwgm6327-82-91A10:52:00Z. [id number] for patient amawFVVTUGJHBEOBGZ0258-16-22S41:2 1:22 [facility]"
--- NOTE | 2023-05-22 17:03 | RAD REPORT ---
EXAM DESCRIPTION: CT - Head Brain Wo Cont - 05/22/2023 4:57 pm CLINICAL HISTORY: abnormal movements Headache, drowsiness COMPARISON: <Comparisons> TECHNIQUE: All CT scans are performed using dose optimization technique as appropriate and may inclu de automated exposure control or mA/KV adjustment according to patient size. FINDINGS: No intracranial hemorrhage, hydrocephalus or extra-axial fluid collection.No areas of brai n edema or evidence of midline shift. The paranasal sinuses and mastoids are clear. The calvarium is intact. IMPRESSION: No acute intracranial abnormality.
[2023-05-22 17:13] LABS: Absolute Basophils 0.1 K/uL (0-0.5); Absolute Eosinophils 0.5 K/uL (0-0.5); Absolute Lymphocytes (CBC) 1.8 K/uL (0.7-4.9); Absolute Monocytes 0.6 K/uL (0.1-1.3); Absolute Neutrophil 6.3 K/uL (1.8-8.0); Basophils % 0.8 % (0-1.3); Eosinophils % 5.3 % (0-4.4); Hematocrit 34.2 % (36.0-45.0); Hemoglobin 10.9 g/dL (12.0-15.0); Lymphocytes % 19.4 % (15.3-44.8); MCH 25.2 pg (27.0-35.0); MCV 78.7 fL (80-100); MPV 9.5 fL (7.6-11.3); Monocytes % 6.7 % (3.3-12.3); Neutrophils % 67.8 % (41.7-73.7); Nucleated Red Blood Cells % 0.4 % (0-0); Platelets 293 thou/uL (152-406); RBC Red Blood Cell Count 4.35 M/uL (3.86-4.86); Red Cell Distribution Width 15.8 % (12.1-15.2)
--- NOTE | 2023-05-22 17:45 | EDPHYS ---
Physician Documentation [facility] Name: Shivani Lagunas Age: 47 yrs Sex: Female : 1975 Arrival Date: 05/22/2023 Time: 15:20 Bed 11 Private MD: Jae Holloway ED Physician Tony Miranda HPI: 05/21 15:50 This 47 yrs old Female presents to ER via Ambulatory with complaints of ec2 Anxiety. 15:50 Patient arrives today for evaluation of anxiety. Patient reports that she has history ec2 of anxiety, states that she did feel some random twitches along with restlessness in her legs. Patient reports no difficulty breathing, no chest pain. Patient reports some bouts of diarrhea for the past month. Patient reports no vomiting. Denies any issues with p.o. intake. Patient reports no significant intracranial processes.. 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 - Infectious Disease History:: Denies. - Social history:: Smoking status: Patient denies any tobacco usage or history of. ROS: 15:50 Constitutional: as per hpi ec2 Exam: 15:50 Constitutional: GEN: NAD Head: atraumatic Eyes: EOMI Ears: External ears are ec2 normal. CV: regular rate LUNGS: no respiratory distress ABD: non-distended SKIN: no evidence of rashes MSK: no evidence of trauma NEURO: moves all extremities equally, cranial nerves II through XII intact, strength intact upper extremities Vital Signs: 15:46 BP 138 / 84; Pulse 93; Resp 20 S; Temp 98.5(TE); Pulse Ox 100% on R/A; as6 16:51 BP 145 / 84; Pulse 84; Resp 18; Pulse Ox 98% on R/A; nj1 17:52 BP 145 / 82; Pulse 82; Resp 17; Temp 97.4(TE); Pulse Ox 99% ; nj1 MDM: 15:49 Patient medically screened. ec2 15:50 Data reviewed: vital signs. ED course: Patient arrives today for evaluation of possible ec2 anxiety, abnormal movements as well. Examination remarkable for neuro intact individual is otherwise in no acute distress with a reassuring examination. Will obtain lab work, CT imaging. Evaluate for electrolyte disturbance, arrhythmia, intracranial mass . 17:15 ED course: EKG independently reviewed and interpreted by me, shows normal sinus rhythm, ec2 rate of 84, no acute ST segment elevations, nonconcerning intervals.. 17:38 ED course: Metabolic profile reassuring, CBC shows slight anemia. . ec2 05/21 15:50 Order name: Basic Metabolic Panel; Complete Time: 17:38 ec2 05/21 15:50 Order name: CBC with Diff; Complete Time: 17:38 ec2 05/21 15:50 Order name: CT Head Brain wo Cont; Complete Time: 17:06 ec2 05/21 15:50 Order name: EKG; Complete Time: 15:51 ec2 05/21 15:50 Order name: Cardiac monitoring; Complete Time: 16:42 ec2 05/21 15:50 Order name: EKG - Nurse/Tech; Complete Time: 17:23 ec2 05/21 15:50 Order name: IV Saline Lock; Complete Time: 17:32 ec2 05/21 15:50 Order name: Labs collected and sent; Complete Time: 17:32 ec2 05/21 15:50 Order name: O2 Per Protocol; Complete Time: 16:42 ec2 05/21 15:50 Order name: O2 Sat Monitoring; Complete Time: 16:42 ec2 Administered Medications: No medications were administered Disposition Summary: 05/22/23 17:44 Discharge Ordered Notes: Location: Home ec2 Condition: Stable ec2 Diagnosis - Twitches ec2 - Spasms ec2 - Restless Legs ec2 Followup: ec2 - With: Private Physician - When: - Reason: Re-evaluation by your physician Discharge Instructions: - Discharge Summary Sheet ec2 - Restless Legs Syndrome ec2 Forms: - Work release form ec2 - Medication Reconciliation Form ec2 - Thank You Letter ec2 - Antibiotic Education ec2 - Prescription Opioid Use ec2 - Patient Portal Instructions ec2 - Leadership Thank You Letter ec2 Prescriptions: - pramipexole 0.5 mg Oral tablet - take 1 tablet ORAL route every day at bedtime for 7 days; 7 tablet; Refills: 0, ec2 Product Selection Permitted Signatures: Dispatcher [employer] Shalom Lim RN RN as6 Tony Miranda MD MD ec2 Corrections: (The following items were deleted from the chart) 15:51 15:51 Head Brain Wo Cont+CT.RAD.BRZ ordered. JORGE LUIS KANG
--- NOTE | 2023-05-22 17:45 | ER ---
Nurse's Notes [facility] Name: Shivani Lagunas Age: 47 yrs Sex: Female : 1975 Arrival Date: 05/22/2023 Time: 15:20 Bed 11 Private MD: Jea Holloway Diagnosis: Twitches;Spasms;Restless Legs Presentation: 05/21 15:47 Chief complaint: Patient states: "I have a history of anxiety but the last week my head as6 has been twitching and at night I've had really restless legs". Coronavirus screen: At this time, the client does not indicate any symptoms associated with coronavirus-19. Ebola Screen: No symptoms or risks identified at this time. Initial Sepsis Screen: Does the patient meet any 2 criteria? No. Patient's initial sepsis screen is negative. Does the patient have a suspected source of infection? No. Patient's initial sepsis screen is negative. Risk Assessment: Do you want to hurt yourself or someone else? Patient reports no desire to harm self or others. Onset of symptoms was May 15, 2023. 15:47 Acuity: ALICIA 3 as6 15:47 Method Of Arrival: Ambulatory as6 DIVING JUDGE: 17:53 unknown, "tubal ligation" nj1 Historical: - Allergies: 15:45 Sulfa (Sulfonamide Antibiotics); as6 - PMHx: 15:45 Bipolar disorder; Congestive heart failure; Hypertensive disorder; Schizophrenia; as6 - PSHx: 15:45 section; Cholecystectomy; as6 - Immunization history:: Adult Immunizations not up to date. - Infectious Disease History:: Denies. - Social history:: Smoking status: Patient denies any tobacco usage or history of. Screenin:43 [facility] ED Fall Risk Assessment (Adult) History of falling in the last 3 months, nj1 including since admission No falls in past 3 months (0 pts) Confusion or Disorientation No (0 pts) Intoxicated or Sedated No (0 pts) Impaired Gait No (0 pts) Mobility Assist Device Used No (0 pt) Altered Elimination No (0 pt) Score/Fall Risk Level 0 - 2 = Low Risk Oriented to surroundings, Maintained a safe environment, Hourly rounding (assess needs \\T\\ fall precautionary measures) done. Abuse screen: Denies threats or abuse. Denies injuries from another. Nutritional screening: No deficits noted. Tuberculosis screening: No symptoms or risk factors identified. Assessment: 16:42 General: Appears in no apparent distress. comfortable, Behavior is calm, cooperative, nj1 appropriate for age. Pain: Denies pain. Neuro: Level of Consciousness is awake, alert, obeys commands, Oriented to person, place, time, situation, Gait is steady, Speech is normal, Facial symmetry appears normal, Reports Shaky legs when resting. Cardiovascular: Patient's skin is warm and dry. Respiratory: Airway is patent Respiratory effort is even, unlabored. Vital Signs: 15:46 BP 138 / 84; Pulse 93; Resp 20 S; Temp 98.5(TE); Pulse Ox 100% on R/A; as6 16:51 BP 145 / 84; Pulse 84; Resp 18; Pulse Ox 98% on R/A; nj1 17:52 BP 145 / 82; Pulse 82; Resp 17; Temp 97.4(TE); Pulse Ox 99% ; nj1 ED Course: 15:23 Patient arrived in ED. mr 15:23 Jae Holloway is Private Physician. mr 15:37 Tony Miranda MD is Attending Physician. ec2 15:46 Arm band placed on right wrist. as6 15:48 Triage completed. as6 16:41 Ember Leger, AMANDA is Primary Nurse. nj1 16:44 Patient has correct armband on for positive identification. Bed in low position. Call nj1 light in reach. Provided Education on: call light, fall precautions. 16:48 Inserted saline lock: 22 gauge in right antecubital area, using aseptic technique. nj1 Blood collected. 16:59 CT Head Brain wo Cont In Process Unspecified. EDMS 17:53 No provider procedures requiring assistance completed. IV discontinued, intact, nj1 bleeding controlled, Pressure dressing applied. Administered Medications: No medications were administered Medication: 17:53 VIS not applicable for this client. nj1 Outcome: 17:44 Discharge ordered by . ec2 17:53 Discharged to home ambulatory, nj1 17:53 Condition: stable 17:53 Discharge instructions given to patient, Instructed on discharge instructions, follow up and referral plans. medication usage, Demonstrated understanding of instructions, follow-up care, medications, Prescriptions given X 1, 17:54 Patient left the ED. nj1 Signatures: Dispatcher [employer] Iona Barnett, Reg Reg mr NoniarminShalom, RN RN as6 Ember Leger RN RN nj1 Tony Miranda MD MD ec2
[2023-05-22 18:58] VITALS: BP 145/82; TEMP 97.4; O2SAT 99
--- NOTE | 2023-05-23 12:34 | EKG ---
Test Date: 2023-05-22 Test Time: 17:13:29 Filler Leaf Cutter Long: MERARI MEASUREMENT RESULTS: Intervals: Rate: 84 NV: 150 QRSD: 88 QT: 394 QTc: 465 Rossiter: P: 53 NV: 150 QRS: 23 T: 25 INTERPRETIVE STATEMENTS: Normal sinus rhythm Normal ECG Compared to ECG 04/16/2023 19:49:05 No significant changes Electronically Signed On 05-23-23 12:33:00 CDT by Sony Guillermo
== END 2023-05-22 17:54 | disposition home or self-care (01) ==
LOC: ER 15:20
DX: G25.81 Restless legs syndrome (principal); F31.9 Bipolar disorder, unspecified; I10 Essential (primary) hypertension; Z88.2 Allergy status to sulfonamides
CPT/HCPCS: 36415; 70450; 80048; 85025; 93005; 99284

== ENCOUNTER 2023-08-14 10:47 | Emergency (ER) | payer OTHER ==
--- OUTSIDE RECORDS SUMMARY | 2023-08-14 11:08 | XMS REPORT | Continuity of Care Document ---
Author Name Unknown Address [address] [facility] [address] [place] [address] [facility] thconnect Address [address] [facility] [address] [place] [address] Care Team Providers Care Wash Worker Name Role Phone Jae Holloway Primary Care Physician [phone] Consuelo BAUER, Elidia Gamble Attending Clinician [phone] Dominic Keita MD Attending Clinician [phone] Jose Westbrook MD Attending Clinician [phone] JOSE WESTBROOK Attending Clinician Unavailable FARZANA SAUCEDA Attending Clinician Unavailable MARYSOL PABON Attending Clinician Unavailable MARYSOL PABON Attending Clinician Unavailable Marysol Pabon DO Attending Clinician [phone] Rhiannon Vizcarra MD Attending Clinician [phone] DAVIDSON SUTHERLAND Attending Clinician Unavailable EMILIA SNOWDEN Attending Clinician Annia vailable Doctor Unassigned, Banner Attending Clinician U SARA Day Attending Clinician UnavailSARA Dorado Attending Clinician UnavailJewel Forbes MD Attending Clinician [phone] [facility] Attending Clinician Unavailable JEWEL CUNHA Attending Clinician Unavaila JENNY Norton Attending Clinician Unavailable JENNY ARRIAGA Attending Clinician Unavailable Dexter Dias MD Attending Clinician [phone] Davidson Sutherland MD Attending Clinician + Pcp-Lab Attending Clinician Unavailable DEXTER DIAS Attending Clinician Unavailable GC_GCBZW_Kadiyala_S Attending Clinician Unavaila ONEIDA Del Rosario Attending Clinician Unavailable DOMINIC KEITA Attending Clinician UnavailHunter Sahni MD Attending Clinician [phone] Ting Grissom MD Attending Clinician [phone] RADIOLOGY Attending Clinician Unavailable DORA NEWMAN Attending Clinician Unavailable Dora Newman NP Attending Clinician + [phone] Salvatore Vences MD Attending Clinician + [phone] Pob, [facility] Main Attending Clinician UnavailSALVATORE Grady Attending Clinician Unavailchris russell Pathology Attending Clinician Unavailable IGOR SAAVEDRA Attending Clinician Unavaila HILARY Ramires Attending Clinician Unavaila HILARY Ramires T Attending Clinician Unavaila Igor mcconnell Rai, MD Attending Clinician Unava ilable GIGI MONROY Attending Clinician Unavailable Gigi Monroy DO Attending Clinician [phone] Zane Martinez MD Attending Clinician [phone] Deonte Aviles Attending Clinician Unavailable UNKNOWN, ATTENDING Attending Clinician Unavailab SALLY Cash Attending Clinician Unavail able SALLY MITCHELL Attending Clinician Unavail able Salbador Lockwood MD Attending Clinician + SALBADOR LOCKWOOD Attending Clinician Unavailable HALIMA CONNOR Attending Clinician Unavailab Halima Choi DO Attending Clinician [phone] ROBERT NOWAK Attending Clinician Unavail able Patti Hutton Attending Clinician [phone] CRISTO MARTINEZ Attending Clinician Unavail able JEWEL MORAES Attending Clinician SALVATORE Melara Attending Clinician Unav ANGELA Richardson Attending Clinician Unavailab RHIANNON Durant Admitting Clinician Unavailable GC_GCBZW_Kadiyala_S Admitting Clinician DOMINIC Hallman Admitting Clinician Unavailchris Keita MD, Dominic Admitting Clinician Payers Payer Name Policy Type Policy Number Effective Date Expirati on Date Source [employer] [id number] 2022 00:00:00 MEDICAID SSI PENDING PENDING 2021 00:00:00 Problems Condition Name Condition Details Condition Category Status Onset Date Resolution Date Last Treatment Date Treating Clinician Comments Source Iron deficiency anemia due to chronic blood loss Iron deficiency anemia due to chronic blood loss Disease Active 10-19 00:00: 00 [facility] Gastroesop hageal reflux disease, unspecifie d whether esophagiti s present Gastroesop hageal reflux disease, unspecifie d whether esophagiti s present Disease Active 10-19 00:00: 00 [facility] Arrhythmia Arrhythmia Disease Active 10-18 00:00: 00 [facility] Anemia Anemia Disease Active 02-17 00:00: 00 [facility] Bipolar 1 disorder, depressed Bipolar 1 disorder, depressed Disease Active 2019-02 00:00: 00 [facility] Gout Gout Disease Active 08-17 00:00: 00 [facility] Severe headache Severe headache Disease Active 1998-02 00:00: 00 [facility] Insomnia disorder Insomnia disorder Disease Active 1989-02 00:00: 00 [facility] Anxiety Anxiety Disease Active 10-18 00:00: 00 [facility] No known active problems No known active problems Disease [facility] Allergies, Adverse Reactions, Alerts Allergy Name Allergy Type Status Severity Reaction(s) Onset Date Inactive Date Treating Clinician Comments Source Sulfa (Sulfona mide Antibiot ics) Propensi ty to adverse reaction s Active Hives 06-05 00:00: 00 [facility] SULFA (SULFONA MIDE ANTIBIOT ICS) Drug Class Active Hives 06-05 00:00: 00 [facility] Social History Social Habit Start Date Stop Date Quantity Comments Source [facility] Social function 2023-01-22 00:00:00 2023-01-22 00:00:00 [facility] Exposure to SARS-CoV-2 (event) 2022-02-05 00:00:00 2022-02-15 08:57:00 Not sure [facility] Tobacco use and exposure 2021-08-24 00:00:00 2021-08-24 00:00:00 Smokeless tobacco non-user [facility] Sex assigned at 1975 00:00:00 1975 00:00:00 [facility] Smoking Status Start Date Stop Date Source Never smoked tobacco [facility] Medications Ordered Medication Name Filled Medication Name Start Date Stop Date Current Medication? Ordering Clinician Indication Dosage Frequency Signature (SIG) Comments Components Source ferric derisomalto se (MONOFERRIC ) 100 mg iron/mL Soln 08-07 00:00: 00 08-08 04:59 :00 Yes [id number] 500mg Inject 500 mg intravenou sly once now for 1 dose. [facility] clonazePAM 1 mg tablet 08-01 00:00: 00 Yes [id number] Take half to 1 tablet by mouth once daily as needed for extreme anxiety. Attempt to minimize use. Follow-up for continued refills. [facility] lithium carbonate CR 450 mg SR tablet 07-30 00:00: 00 Yes [id number] 900mg Take 2 tablets by mouth at bedtime. [facility] omeprazole 40 mg capsule 07-25 00:00: 00 07-21 04:59 :00 Yes [id number] 40mg Take 1 capsule by mouth in the morning and 1 capsule in the evening. Take with meals. Do all this for 360 days. [facility] sucralfate 1 gram tablet 07-25 00:00: 00 10-24 04:59 :00 Yes [id number] 1g Take 1 tablet by mouth before meals and at bedtime for 90 days. [facility] traZODone 50 mg tablet 07-18 00:00: 00 Yes [id number] 50mg Take 1 tablet by mouth at bedtime. May cut tablet in half. Follow up for refills [facility] DULoxetine 60 mg capsule 06-21 00:00: 00 Yes [id number] 60mg Take 1 capsule by mouth in the morning and 1 capsule in the evening. Follow up for refills [facility] busPIRone 10 mg tablet 06-21 00:00: 00 Yes [id number] 20mg Take 2 tablets by mouth in the morning and 2 tablets in the evening. Follow up for refills [facility] traZODone 50 mg tablet 06-21 00:00: 00 07-18 00:00 :00 No [id number] 50mg Take 1 tablet by mouth at bedtime. May cut tablet in half. Follow up for refills [facility] clonazePAM 1 mg tablet 06-12 00:00: 00 07-30 00:00 :00 No [id number] Take half to 1 tablet by mouth once daily as needed for extreme anxiety. Attempt to minimize use. Follow-up for continued refills. [facility] iopamidol (ISOVUE 370-500 mL) injection 80 mL 06-07 02:57: 00 06-07 02:45 :00 No [id number] 80mL 80 mL, Intravenou s, ONCE, 1 dose, On Sun06/07/23 at 2200, Routine [facility] NaCl 0.9% (NS) injection 5 mL 06-07 02:36: 00 Yes 5mL 5 mL, Slow IV Push, PRN - SEE INSTRUCTIO NS, Starting on Sun06/07/23 at 2136, Until Discontinu ed, 10 mL [facility] traZODone 50 mg tablet 2023-0 4-10 00:00: 00 06-21 00:00 :00 No [id number] 50mg Take 1 tablet by mouth at bedtime. May cut tablet in half. [facility] DULoxetine 60 mg capsule 4-10 00:00: 00 06-21 00:00 :00 No [id number] 60mg Take 1 capsule by mouth in the morning and 1 capsule in the evening. [facility] busPIRone 10 mg tablet 3-26 00:00: 00 06-21 00:00 :00 No [id number] 20mg Take 2 tablets by mouth in the morning and 2 tablets in the evening. [facility] traZODone 50 mg tablet 3-13 00:00: 00 05-22 00:00 :00 No [id number] 50mg Take 1 tablet by mouth at bedtime. May cut tablet in half. [facility] DULoxetine 60 mg capsule 3-13 00:00: 00 05-22 00:00 :00 No [id number] 60mg Take 1 capsule by mouth in the morning and 1 capsule in the evening. [facility] DULoxetine 60 mg capsule 1-24 00:00: 00 04-23 00:00 :00 No [id number] 60mg Take 1 capsule by mouth in the morning and 1 capsule in the evening. [facility] losartan potassium (LOSARTAN ORAL) 02-15 09:55: 13 Yes 20mg Take 20 mg by mouth. [facility] propranolol 80 mg tablet 02-15 09:55: 13 Yes 80mg Take 1 tablet by mouth in the morning and 1 tablet in the evening. [facility] allopurinoL 100 mg tablet 02-15 09:55: 13 Yes 100mg Take 1 tablet by mouth in the morning. [facility] lamoTRIgine 100 mg tablet 2022-02 2-11 00:00: 00 Yes [id number] 100mg Take 1 tablet by mouth in the morning and 1 tablet in the evening. [facility] lithium carbonate CR 450 mg SR tablet 2022-02 00:00: 00 07-29 00:00 :00 No [id number] 900mg Take 2 tablets by mouth at bedtime. [facility] clonazePAM 1 mg tablet 2022-02 00:00: 00 06-11 00:00 :00 No [id number] Take half to 1 tablet by mouth once daily as needed for extreme anxiety. Attempt to minimize use. [facility] busPIRone 10 mg tablet 2022-02 00:00: 00 05-07 00:00 :00 No [id number] 20mg Take 2 tablets by mouth in the morning and 2 tablets in the evening. [facility] traZODone 50 mg tablet 2022-02 00:00: 00 04-22 00:00 :00 No [id number] 50mg Take 1 tablet by mouth at bedtime. May cut tablet in half. [facility] DULoxetine 60 mg capsule 2022-02 00:00: 00 03-07 00:00 :00 No [id number] 60mg Take 1 capsule by mouth in the morning and 1 capsule in the evening. [facility] busPIRone 15 mg tablet 2022-02 00:00: 00 01-22 00:00 :00 No [id number] 15mg Take 1 tablet by mouth in the morning and 1 tablet in the evening. [facility] lithium carbonate CR 450 mg SR tablet 2022-02 00:00: 00 01-22 00:00 :00 No [id number] 900mg Take 2 tablets by mouth at bedtime. [facility] traZODone 50 mg tablet 2022-02 00:00: 00 01-22 00:00 :00 No [id number] 50mg Take 1 tablet by mouth at bedtime. May cut tablet in half. [facility] DULoxetine 60 mg capsule 2022-02 00:00: 00 01-22 00:00 :00 No [id number] 60mg Take 1 capsule by mouth in the morning and 1 capsule in the evening. [facility] lamoTRIgine 100 mg tablet 2022-02 00:00: 00 01-22 00:00 :00 No [id number] 100mg Take 1 tablet by mouth in the morning and 1 tablet in the evening. [facility] clonazePAM 1 mg tablet 2022-02 00:00: 00 01-22 00:00 :00 No [id number] Take 1 tablet by mouth once daily as needed for extreme anxiety. Attempt to minimize use. [facility] busPIRone 15 mg tablet 2022-02 00:00: 00 12-20 00:00 :00 No [id number] 15mg Take 1 tablet by mouth in the morning and 1 tablet in the evening. [facility] lithium carbonate CR 450 mg SR tablet 2022-02 00:00: 00 12-20 00:00 :00 No [id number] 900mg Take 2 tablets by mouth at bedtime. [facility] traZODone 50 mg tablet 2022-02 00:00: 00 12-20 00:00 :00 No [id number] 50mg Take 1 tablet by mouth at bedtime. May cut tablet in half. [facility] DULoxetine 60 mg capsule 2022-02 00:00: 00 12-20 00:00 :00 No [id number] 60mg Take 1 capsule by mouth in the morning and 1 capsule in the evening. [facility] simethicone (GAS RELIEF (SIMETHICON E)) 40 mg/0.6 mL drops 2022-02 13:19: 00 11-13 16:49 :02 No PRN, Starting on Sun11/13/22 at 0819, Until Sun11/13/22 at 1149, Routine, Intra-op [facility] losartan potassium (LOSARTAN ORAL) 2022-02 09:49: 01 Yes 20mg Take 20 mg by mouth. [facility] propranolol 80 mg tablet 2022-02 09:49: 01 Yes 80mg Take 1 tablet by mouth in the morning and 1 tablet in the evening. [facility] allopurinoL 100 mg tablet 2022-02 09:49: 01 Yes 100mg Take 1 tablet by mouth in the morning. [facility] sucralfate 1 gram tablet 2022-02 00:00: 00 12-14 04:59 :00 No 1g Take 1 tablet by mouth in the morning and 1 tablet in the evening. Do all this for 30 days. [facility] ketorolac (TORADOL) injection 30 mg 11-03 17:00: 00 11-03 16:25 :00 No 30mg 30 mg, Slow IV Push, ONCE, 1 dose, On Sun11/03/22 at 1200, Routine [facility] NaCl 0.9% (NS) bolus infusion 500 mL 11-03 16:45: 00 11-03 18:14 :00 No 500mL at 999 mL/hr, 500 mL, IV Infusion, ONCE, 1 dose, On Sun11/03/22 at 1145, [facility] butalbital- acetaminoph en-caff (ESGIC) 50-325-40 mg tablet 1 tablet 11-03 16:00: 00 11-03 16:21 :00 No 1{tbl} 1 tablet, Oral, ONCE, 1 dose, On Sun11/03/22 at 1100, [facility] dexamethaso ne sod phos PF injection 10 mg 11-03 16:00: 00 11-03 16:27 :00 No 10mg 10 mg, Slow IV Push, ONCE, 1 dose, On Sun11/03/22 at 1100, 1 mL [facility] metoclopram chelo HCl (REGLAN) injection 10 mg 11-03 16:00: 00 11-03 16:28 :00 No 10mg 10 mg, Slow IV Push, ONCE, 1 dose, On Sun11/03/22 at 1100, [facility] diphenhydrA MINE (BENADRYL) injection 25 mg 11-03 16:00: 00 11-03 16:30 :00 No 25mg 25 mg, Slow IV Push, ONCE, 1 dose, On Sun11/03/22 at 1100, STAT [facility] atorvastati n 10 mg tablet 11-03 10:48: 00 11-03 00:00 :00 No 10mg Take 10 mg by mouth at bedtime. [facility] butalbital- acetaminoph en-caff 50-325-40 mg tablet 11-03 00:00: 00 Yes [id number] 1{tbl} Take 1 tablet by mouth every 6 (six) hours as needed for Pain (scale 7-10) or Pain (scale 4-6) for up to 12 doses. [facility] peg-electro lyte soln 236-22.74-6 .74 -5.86 gram solution 10-19 00:00: 00 11-03 00:00 :00 No [id number] Take as directed before colonoscop y [facility] busPIRone 15 mg tablet 10-04 00:00: 00 12-13 00:00 :00 No [id number] 15mg Take 1 tablet by mouth in the morning and 1 tablet in the evening. [facility] clonazePAM 1 mg tablet 09-28 00:00: 00 12-20 00:00 :00 No [id number] Take 1 tablet by mouth twice daily as needed for anxiety. [facility] DULoxetine 60 mg capsule 09-26 00:00: 00 11-22 00:00 :00 No [id number] 60mg Take 1 capsule by mouth in the morning and 1 capsule in the evening. [facility] lamoTRIgine 100 mg tablet 09-13 00:00: 00 12-20 00:00 :00 No [id number] 100mg Take 1 tablet by mouth in the morning and 1 tablet in the evening. [facility] lithium carbonate CR 450 mg SR tablet 09-13 00:00: 00 11-28 00:00 :00 No [id number] 900mg Take 2 tablets by mouth at bedtime. [facility] busPIRone 10 mg tablet 09-13 00:00: 00 10-04 00:00 :00 No [id number] 10mg Take 1 tablet by mouth in the morning and 1 tablet in the evening. [facility] clonazePAM 1 mg tablet 7-19 00:00: 00 09-25 00:00 :00 No [id number] Take 1 tablet by mouth twice daily as needed for anxiety. [facility] FUROSEMIDE ORAL 07-26 09:33: 26 07-26 00:00 :00 No 40mg Take 40 mg by mouth daily. [facility] traZODone 50 mg tablet 07-26 00:00: 00 11-28 00:00 :00 No [id number] 50mg Take 1 tablet by mouth at bedtime. May cut tablet in half. [facility] DULoxetine 60 mg capsule 07-26 00:00: 00 09-25 00:00 :00 No [id number] 60mg Take 1 capsule by mouth in the morning and 1 capsule in the evening. [facility] lamoTRIgine 100 mg tablet 07-26 00:00: 00 09-13 00:00 :00 No [id number] 100mg Take 1 tablet by mouth in the morning and 1 tablet in the evening. [facility] lithium carbonate CR 450 mg SR tablet 07-26 00:00: 00 09-13 00:00 :00 No [id number] 900mg Take 2 tablets by mouth at bedtime. [facility] busPIRone 10 mg tablet 07-26 00:00: 00 09-13 00:00 :00 No [id number] 10mg Take 1 tablet by mouth in the morning and 1 tablet in the evening. [facility] lamoTRIgine 100 mg tablet 07-19 00:00: 00 07-26 00:00 :00 No [id number] 100mg Take 1 tablet by mouth in the morning and 1 tablet in the evening. [facility] clonazePAM 1 mg tablet 24 00:00: 00 08-29 00:00 :00 No [id number] Take 1 tablet by mouth twice daily as needed for anxiety. [facility] DULoxetine 60 mg capsule 0 5-09 00:00: 00 07-26 00:00 :00 No [id number] 60mg Take 1 capsule by mouth in the morning and 1 capsule in the evening. [facility] lithium carbonate CR 450 mg SR tablet 5 00:00: 00 07-26 00:00 :00 No [id number] 900mg Take 2 tablets by mouth at bedtime. [facility] traZODone 50 mg tablet - 00:00: 00 07-26 00:00 :00 No [id number] 50mg Take 1 tablet by mouth at bedtime. May cut tablet in half. [facility] lamoTRIgine 100 mg tablet 2022-0 3-09 00:00: 00 07-19 00:00 :00 No [id number] 100mg Take 1 tablet by mouth in the morning and 1 tablet in the evening. [facility] clonazePAM 1 mg tablet 0 -09 00:00: 00 07-05 00:00 :00 No [id number] Take 1 tablet by mouth twice daily as needed for anxiety. [facility] DULoxetine 60 mg capsule 2022-0 3-09 00:00: 00 06-17 00:00 :00 No [id number] 60mg Take 1 capsule by mouth in the morning and 1 capsule in the evening. [facility] lithium carbonate CR 450 mg SR tablet 2022-0 3-09 00:00: 00 06-17 00:00 :00 No [id number] 900mg Take 2 tablets by mouth at bedtime. [facility] lamoTRIgine 100 mg tablet 2022-0 1-26 00:00: 00 04-20 00:00 :00 No [id number] 100mg Take 1 tablet by mouth in the morning and 1 tablet in the evening. [facility] traZODone 50 mg tablet -04 00:00: 00 04-20 00:00 :00 No [id number] 50mg Take 1 tablet by mouth at bedtime. May cut tablet in half. [facility] lithium carbonate CR 450 mg SR tablet 02-15 00:00: 00 04-20 00:00 :00 No [id number] 900mg Take 2 tablets by mouth at bedtime. [facility] DULoxetine 60 mg capsule 02-15 00:00: 00 04-19 00:00 :00 No [id number] 60mg Take 1 capsule by mouth in the morning and 1 capsule in the evening. [facility] clonazePAM 1 mg tablet 02-15 00:00: 00 04-19 00:00 :00 No [id number] Take 1 tablet by mouth twice daily as needed for anxiety. [facility] lamoTRIgine 100 mg tablet 02-15 00:00: 00 03-09 00:00 :00 No [id number] 100mg Take 1 tablet by mouth in the morning and 1 tablet in the evening. [facility] lithium 600 mg capsule 02-15 00:00: 00 02-15 00:00 :00 No [id number] 600mg Take 1 capsule by mouth in the morning and 1 capsule in the evening. [facility] DULoxetine 60 mg capsule 2021-02 2- 00:00: 00 02-15 00:00 :00 No [id number] 60mg Take 1 capsule by mouth in the morning and 1 capsule in the evening. [facility] lamoTRIgine 100 mg tablet 2021-02 2- 00:00: 00 02-15 00:00 :00 No [id number] 100mg Take 1 tablet by mouth in the morning and 1 tablet in the evening. [facility] traZODone 50 mg tablet 2021-02 1-30 00:00: 00 02-15 00:00 :00 No [id number] 50mg Take 1 tablet by mouth at bedtime. May cut tablet in half. [facility] lamoTRIgine 100 mg tablet 2021-02 00:00: 00 02-02 00:00 :00 No [id number] 100mg Take 1 tablet by mouth in the morning and 1 tablet in the evening. [facility] clonazePAM 1 mg tablet 2021-02 00:00: 00 02-15 00:00 :00 No [id number] Take 1 tablet by mouth twice daily as needed for anxiety. [facility] DULoxetine 60 mg capsule 2021-02 00:00: 00 02-07 00:00 :00 No [id number] 60mg Take 1 capsule by mouth in the morning and 1 capsule in the evening. [facility] traZODone 50 mg tablet 2021-02 00:00: 00 01-11 00:00 :00 No [id number] 50mg Take 1 tablet by mouth at bedtime. May cut tablet in half. [facility] DULoxetine 60 mg capsule 2021-02 0-25 00:00: 00 01-09 00:00 :00 No [id number] 60mg Take 1 capsule by mouth in the morning and 1 capsule in the evening. [facility] lithium 600 mg capsule 2021-02 0-20 00:00: 00 02-15 00:00 :00 No [id number] 600mg Take 1 capsule by mouth in the morning and 1 capsule in the evening. [facility] lamoTRIgine 25 mg tablet 2021-02 0-20 00:00: 00 01-11 00:00 :00 No [id number] 50mg Take 2 tablets by mouth in the morning and 2 tablets in the evening. [facility] clonazePAM 1 mg tablet 2021-02 0-20 00:00: 00 01-09 00:00 :00 No [id number] Take 1 tablet by mouth twice daily as needed for anxiety. [facility] lamoTRIgine 25 mg tablet 2021-0 8-26 00:00: 00 11-30 00:00 :00 No [id number] 50mg Take 2 tablets by mouth in the morning and 2 tablets in the evening. [facility] clonazePAM 1 mg tablet 8-25 00:00: 00 11-30 00:00 :00 No [id number] Take no more than 1 mg twice daily as needed for anxiety [facility] lithium 600 mg capsule 0 8-25 00:00: 00 11-30 00:00 :00 No [id number] 600mg Take 1 capsule by mouth in the morning and 1 capsule in the evening. [facility] Lamotrigine 50 mg tablet 8 00:00: 00 10-07 00:00 :00 No [id number] 50mg Take 1 tablet by mouth in the morning and 1 tablet in the evening. [facility] Lamotrigine 50 mg tablet 8 00:00: 00 10-06 00:00 :00 No [id number] 50mg Take 1 tablet by mouth in the morning and 1 tablet in the evening. [facility] DULoxetine 60 mg capsule 0 7-27 00:00: 00 12-05 00:00 :00 No [id number] 60mg Take 1 capsule by mouth in the morning and 1 capsule in the evening. [facility] Lamotrigine 50 mg tablet 7-18 00:00: 00 09-22 00:00 :00 No [id number] 50mg Take 1 tablet by mouth in the morning and 1 tablet in the evening. [facility] lithium 600 mg capsule 0 7-13 00:00: 00 10-06 00:00 :00 No [id number] 600mg Take 1 capsule by mouth in the morning and 1 capsule in the evening. [facility] DULoxetine 60 mg capsule 0 6- 00:00: 00 Yes [id number] 60mg Take 1 capsule by mouth 2 (two) times daily. [facility] traZODone 50 mg tablet 2021-0 6-28 00:00: 00 01-02 00:00 :00 No [id number] 50mg Take 1 tablet by mouth at bedtime. May cut tablet in half. [facility] clonazePAM 1 mg tablet 28 00:00: 00 10-06 00:00 :00 No [id number] Take no more than 1 mg twice daily as needed for anxiety [facility] DULoxetine 60 mg capsule 14 00:00: 00 08-09 00:00 :00 No [id number] 60mg Take 1 capsule by mouth 2 (two) times daily. [facility] traZODone 50 mg tablet 05-26 00:00: 00 08-09 00:00 :00 No [id number] 50mg Take 1 tablet by mouth at bedtime. May cut tablet in half. [facility] vitamin B-12 1,000 mcg tablet 05-23 00:00: 00 11-03 00:00 :00 No [id number] 1000ug Take 1 tablet by mouth daily. [facility] cyanocobala min 1,000 mcg/mL injection 05-23 00:00: 00 11-03 00:00 :00 No [id number] 1000ug 1 mL by Intramuscu lar route weekly. [facility] losartan potassium (LOSARTAN ORAL) 05-17 09:24: 36 Yes 20mg Take 20 mg by mouth. [facility] FUROSEMIDE ORAL 05-17 09:24: 36 Yes 40mg Take 40 mg by mouth daily. [facility] magnesium gluconate 200 mg tablet 05-17 00:00: 00 Yes [id number] 400mg Take 2 tablets by mouth 2 (two) times daily. [facility] gabapentin 300 mg capsule 05-17 00:00: 00 11-03 00:00 :00 No [id number] 300mg Take 1 capsule by mouth 3 (three) times daily. [facility] rizatriptan 5 mg disintegrat ing tablet 05-17 00:00: 00 11-03 00:00 :00 No [id number] 5mg Take 1 tablet by mouth as needed for Migraine (Take 5mg at the beginning of the headache can repeat 2h after if headaches persists). May repeat in 2 hours if needed [facility] magnesium gluconate 200 mg tablet 405 00:00: 00 11-03 00:00 :00 No [id number] 400mg Take 2 tablets by mouth 2 (two) times daily. [facility] artificial tears,hypro mellose, 0.5 % ophthalmic drops 05-17 00:00: 00 06-22 00:00 :00 No [id number] 1[drp] Place 1 Drop in left eye as needed for Dry eyes. [facility] clonazePAM 1 mg tablet 05-12 00:00: 00 08-09 00:00 :00 No [id number] Take no more than 1 mg twice daily as needed for anxiety [facility] lithium 600 mg capsule 05-11 00:00: 00 06-12 00:00 :00 No [id number] 600mg Take 1 capsule by mouth 2 (two) times daily. [facility] ondansetron (ZOFRAN ODT) 4 mg disintegrat ing tablet 09-02 00:00: 00 11-03 00:00 :00 No [id number] 4mg Take 1 tablet by mouth every 8 (eight) hours as needed for Nausea and Vomiting (N/V). [facility] butalbital- acetaminoph en-caff 50-325-40 mg tablet 09-02 00:00: 00 06-22 00:00 :00 No [id number] 1{tbl} Take 1 tablet by mouth every 6 (six) hours as needed for Pain (scale 7-10). [facility] allopurinoL 100 mg tablet 08-05 13:17: 52 Yes 100mg Take 1 tablet by mouth in the morning. [facility] atorvastati n 10 mg tablet 08-05 13:17: 52 Yes 10mg Take 10 mg by mouth at bedtime. [facility] propranolol 80 mg tablet 08-05 13:12: 38 Yes 80mg Take 1 tablet by mouth in the morning and 1 tablet in the evening. [facility] Immunizations Ordered Immunization Name Filled Immunization Name Date Status Comments Source TDAP Unknown Completed [facility] Influenza Virus Vaccine Quad .5 mL IM 6+ MO (FLUZONE/FLULAVAL/FL UARIX) Unknown Completed [facility] SARS-COV-2 COVID-19 VACCINE - (MODERNA) Unknown Completed [facility] SARS-COV-2 COVID-19 VACCINE - (MODERNA) Unknown Completed [facility] TDAP Unknown Completed [facility] Influenza Virus Vaccine Quad .5 mL IM 6+ MO (FLUZONE/FLULAVAL/FL UARIX) Unknown Completed [facility] SARS-COV-2 COVID-19 VACCINE - (MODERNA) Unknown Completed [facility] SARS-COV-2 COVID-19 VACCINE - (MODERNA) Unknown Completed [facility] TDAP Unknown Completed [facility] Influenza Virus Vaccine Quad .5 mL IM 6+ MO (FLUZONE/FLULAVAL/FL UARIX) Unknown Completed [facility] SARS-COV-2 COVID-19 VACCINE - (MODERNA) Unknown Completed [facility] SARS-COV-2 COVID-19 VACCINE - (MODERNA) Unknown Completed [facility] TDAP Unknown Completed [facility] Influenza Virus Vaccine Quad .5 mL IM 6+ MO (FLUZONE/FLULAVAL/FL UARIX) Unknown Completed [facility] SARS-COV-2 COVID-19 VACCINE - (MODERNA) Unknown Completed [facility] SARS-COV-2 COVID-19 VACCINE - (MODERNA) Unknown Completed [facility] TDAP Unknown Completed [facility] Influenza Virus Vaccine Quad .5 mL IM 6+ MO (FLUZONE/FLULAVAL/FL UARIX) Unknown Completed [facility] SARS-COV-2 COVID-19 VACCINE - (MODERNA) Unknown Completed [facility] SARS-COV-2 COVID-19 VACCINE - (MODERNA) Unknown Completed [facility] TDAP Unknown Completed [facility] Influenza Virus Vaccine Quad .5 mL IM 6+ MO (FLUZONE/FLULAVAL/FL UARIX) Unknown Completed [facility] SARS-COV-2 COVID-19 VACCINE - (MODERNA) Unknown Completed [facility] SARS-COV-2 COVID-19 VACCINE - (MODERNA) Unknown Completed [facility] TDAP Unknown Completed [facility] Influenza Virus Vaccine Quad .5 mL IM 6+ MO (FLUZONE/FLULAVAL/FL UARIX) Unknown Completed [facility] SARS-COV-2 COVID-19 VACCINE - (MODERNA) Unknown Completed [facility] SARS-COV-2 COVID-19 VACCINE - (MODERNA) Unknown Completed [facility] TDAP Unknown Completed [facility] Influenza Virus Vaccine Quad .5 mL IM 6+ MO (FLUZONE/FLULAVAL/FL UARIX) Unknown Completed [facility] SARS-COV-2 COVID-19 VACCINE - (MODERNA) Unknown Completed [facility] SARS-COV-2 COVID-19 VACCINE - (MODERNA) Unknown Completed [facility] TDAP Unknown Completed [facility] Influenza Virus Vaccine Quad .5 mL IM 6+ MO (FLUZONE/FLULAVAL/FL UARIX) Unknown Completed [facility] SARS-COV-2 COVID-19 VACCINE - (MODERNA) Unknown Completed [facility] SARS-COV-2 COVID-19 VACCINE - (MODERNA) Unknown Completed [facility] TDAP Unknown Completed [facility] Influenza Virus Vaccine Quad .5 mL IM 6+ MO (FLUZONE/FLULAVAL/FL UARIX) Unknown Completed [facility] SARS-COV-2 COVID-19 VACCINE - (MODERNA) Unknown Completed [facility] SARS-COV-2 COVID-19 VACCINE - (MODERNA) Unknown Completed [facility] TDAP Unknown Completed [facility] Influenza Virus Vaccine Quad .5 mL IM 6+ MO (FLUZONE/FLULAVAL/FL UARIX) Unknown Completed [facility] SARS-COV-2 COVID-19 VACCINE - (MODERNA) Unknown Completed [facility] SARS-COV-2 COVID-19 VACCINE - (MODERNA) [facility] Influenza Virus Vaccine Quad .5 mL IM 6+ MO (FLUZONE/FLULAVAL/FL UARIX) Unknown Completed [facility] SARS-COV-2 COVID-19 VACCINE - (MODERNA) Unknown Completed [facility] SARS-COV-2 COVID-19 VACCINE - (MODERNA) Unknown Completed [facility] TDAP Unknown Completed [facility] Influenza Virus Vaccine Quad .5 mL IM 6+ MO (FLUZONE/FLULAVAL/FL UARIX) Unknown Completed [facility] SARS-COV-2 COVID-19 VACCINE - (MODERNA) Unknown Completed [facility] SARS-COV-2 COVID-19 VACCINE - (MODERNA) Unknown Completed [facility] TDAP Unknown Completed [facility] Influenza Virus Vaccine Quad .5 mL IM 6+ MO (FLUZONE/FLULAVAL/FL UARIX) Unknown Completed [facility] SARS-COV-2 COVID-19 VACCINE - (MODERNA) Unknown Completed [facility] SARS-COV-2 COVID-19 VACCINE - (MODERNA) Unknown Completed [facility] TDAP Unknown Completed [facility] Influenza Virus Vaccine Quad .5 mL IM 6+ MO (FLUZONE/FLULAVAL/FL UARIX) Unknown Completed [facility] SARS-COV-2 COVID-19 VACCINE - (MODERNA) Unknown Completed [facility] SARS-COV-2 COVID-19 VACCINE - (MODERNA) Unknown Completed [facility] TDAP Unknown Completed [facility] Influenza Virus Vaccine Quad .5 mL IM 6+ MO (FLUZONE/FLULAVAL/FL UARIX) Unknown Completed [facility] SARS-COV-2 COVID-19 VACCINE - (MODERNA) Unknown Completed [facility] SARS-COV-2 COVID-19 VACCINE - (MODERNA) Unknown Completed [facility] TDAP Unknown Completed [facility] Influenza Virus Vaccine Quad .5 mL IM 6+ MO (FLUZONE/FLULAVAL/FL UARIX) Unknown Completed [facility] SARS-COV-2 COVID-19 VACCINE - (MODERNA) Unknown Completed [facility] SARS-COV-2 COVID-19 VACCINE - (MODERNA) Unknown Completed [facility] TDAP Unknown Completed [facility] Influenza Virus Vaccine Quad .5 mL IM 6+ MO (FLUZONE/FLULAVAL/FL UARIX) Unknown Completed [facility] SARS-COV-2 COVID-19 VACCINE - (MODERNA) Unknown Completed [facility] SARS-COV-2 COVID-19 VACCINE - (MODERNA) [facility] Com[facility] Influenza Virus Vaccine Quad .5 mL IM 6+ MO (FLUZONE/FLULAVAL/FL UARIX) Unknown Completed [facility] SARS-COV-2 COVID-19 VACCINE - (MODERNA) Unknown Completed [facility] SARS-COV-2 COVID-19 VACCINE - (MODERNA) Unknown [facility] Unknown Completed [facility] Influenza Virus Vaccine Quad .5 mL IM 6+ MO (FLUZONE/FLULAVAL/FL UARIX) Unknown Completed [facility] SARS-COV-2 COVID-19 VACCINE - (MODERNA) Unknown [facility] SARS-COV-2 COVID-19 VACCINE - (MODERNA) Unknown Completed [facility] TDAP Unknown Completed [facility] Influenza Virus Vaccine Quad .5 mL IM 6+ MO (FLUZONE/FLULAVAL/FL UARIX) Unknown Completed [facility] SARS-COV-2 COVID-19 VACCINE - (MODERNA) Unknown Completed [facility] SARS-COV-2 COVID-19 VACCINE - (MODERNA) Unknown [facility] TD[facility] Unknown Completed [facility] Influenza Virus Vaccine Quad .5 mL IM 6+ MO (FLUZONE/FLULAVAL/FL UARIX) Unknown Completed [facility] SARS-COV-2 COVID-19 VACCINE - (MODERNA) Unknown Completed [facility] SARS-COV-2 COVID-19 VACCINE - (MODERNA) Unknown Completed [facility] TDAP Unknown Completed [facility] Influenza Virus Vaccine Quad .5 mL IM 6+ MO (FLUZONE/FLULAVAL/FL UARIX) Unknown Completed [facility] SARS-COV-2 COVID-19 VACCINE - (MODERNA) Unknown Completed [facility] SARS-COV-2 COVID-19 VACCINE - (MODERNA) Unknown Completed [facility] TDAP Unknown Completed [facility] Influenza Virus Vaccine Quad .5 mL IM 6+ MO (FLUZONE/FLULAVAL/FL UARIX) Unknown Completed [facility] SARS-COV-2 COVID-19 VACCINE - (MODERNA) Unknown Completed [facility] SARS-COV-2 COVID-19 VACCINE - (MODERNA) Unknown Completed [facility] TDAP Unknown Completed [facility] Influenza Virus Vaccine Quad .5 mL IM 6+ MO (FLUZONE/FLULAVAL/FL UARIX) Unknown Completed [facility] SARS-COV-2 COVID-19 VACCINE - (MODERNA) Unknown Completed [facility] SARS-COV-2 COVID-19 VACCINE - (MODERNA) Unknown Completed [facility] TDAP Unknown Completed [facility] Influenza Virus Vaccine Quad .5 mL IM 6+ MO (FLUZONE/FLULAVAL/FL UARIX) Unknown Completed [facility] SARS-COV-2 COVID-19 VACCINE - (MODERNA) Unknown Completed [facility] SARS-COV-2 COVID-19 VACCINE - (MODERNA) Unknown Completed [facility] TDAP Unknown Completed [facility] Influenza Virus Vaccine Quad .5 mL IM 6+ MO (FLUZONE/FLULAVAL/FL UARIX) Unknown Completed [facility] SARS-COV-2 COVID-19 VACCINE - (MODERNA) Unknown Completed [facility] SARS-COV-2 COVID-19 VACCINE - (MODERNA) Unknown Completed [facility] TDAP Unknown Completed [facility] Influenza Virus Vaccine Quad .5 mL IM 6+ MO (FLUZONE/FLULAVAL/FL UARIX) Unknown Completed [facility] SARS-COV-2 COVID-19 VACCINE - (MODERNA) Unknown Completed [facility] SARS-COV-2 COVID-19 VACCINE - (MODERNA) Unknown Completed [facility] TDAP Unknown Completed [facility] Influenza Virus Vaccine Quad .5 mL IM 6+ MO (FLUZONE/FLULAVAL/FL UARIX) Unknown Completed [facility] SARS-COV-2 COVID-19 VACCINE - (MODERNA) Unknown Completed [facility] SARS-COV-2 COVID-19 VACCINE - (MODERNA) Unknown Completed [facility] TDAP Unknown Completed [facility] Influenza Virus Vaccine Quad .5 mL IM 6+ MO (FLUZONE/FLULAVAL/FL UARIX) Unknown Completed [facility] SARS-COV-2 COVID-19 VACCINE - (MODERNA) Unknown Completed [facility] SARS-COV-2 COVID-19 VACCINE - (MODERNA) Unknown Completed [facility] TDAP Unknown Completed [facility] Influenza Virus Vaccine Quad .5 mL IM 6+ MO (FLUZONE/FLULAVAL/FL UARIX) Unknown Completed [facility] SARS-COV-2 COVID-19 VACCINE - (MODERNA) Unknown Completed [facility] SARS-COV-2 COVID-19 VACCINE - (MODERNA) Unknown Completed [facility] TDAP Unknown Completed [facility] Influenza Virus Vaccine Quad .5 mL IM 6+ MO (FLUZONE/FLULAVAL/FL UARIX) Unknown Completed [facility] SARS-COV-2 COVID-19 VACCINE - (MODERNA) Unknown Completed [facility] SARS-COV-2 COVID-19 VACCINE - (MODERNA) Unknown Completed [facility] Vital Signs Vital Name Observation Time Observation Value Comments S ource Systolic blood pressure 2023-07-26 14:17:00 177 mm[Hg] [facility] Diastolic blood pressure 2023-07-26 14:17:00 92 mm[Hg] [facility] Heart rate 2023-07-26 14:17:00 97 /min [facility] Body temperature 2023-07-26 14:17:00 36.39 Verna [facility] Respiratory rate 2023-07-26 14:17:00 18 /min [facility] Body height 2023-07-26 14:17:00 167.6 cm [facility] Body weight 2023-07-26 14:17:00 100.472 kg [facility] BMI 2023-07-26 14:17:00 35.75 kg/m2 [facility] Oxygen saturation in Arterial blood by Pulse oximetry 2023-07-26 14:17:00 97 /min [facility] Systolic blood pressure 2023-06-08 07:00:00 112 mm[Hg] [facility] Diastolic blood pressure 2023-06-08 07:00:00 62 mm[Hg] [facility] Heart rate 2023-06-08 07:00:00 72 /min [facility] Respiratory rate 2023-06-08 07:00:00 20 /min [facility] Oxygen saturation in Arterial blood by Pulse oximetry 2023-06-08 07:00:00 97 /min [facility] Body weight 2023-06-08 02:41:00 108.863 kg [facility] BMI 2023-06-08 02:41:00 38.74 kg/m2 [facility] Body temperature 2023-06-08 02:38:00 36.67 Verna [facility] Body height 2023-06-08 02:34:00 167.6 cm [facility] Systolic blood pressure 2023-02-15 15:53:00 132 mm[Hg] [facility] Diastolic blood pressure 2023-02-15 15:53:00 73 mm[Hg] [facility] Heart rate 2023-02-15 15:53:00 74 /min [facility] Body temperature 2023-02-15 15:53:00 36.44 Verna [facility] Respiratory rate 2023-02-15 15:53:00 16 /min [facility] Body height 2023-02-15 15:53:00 167.6 cm [facility] Body weight 2023-02-15 15:53:00 100.336 kg [facility] BMI 2023-02-15 15:53:00 35.70 kg/m2 [facility] Oxygen saturation in Arterial blood by Pulse oximetry 2023-02-15 15:53:00 100 /min [facility] Systolic blood pressure 2022-11-13 14:08:00 117 mm[Hg] [facility] Diastolic blood pressure 2022-11-13 14:08:00 70 mm[Hg] [facility] Heart rate 2022-11-13 14:08:00 64 /min [facility] Respiratory rate 2022-11-13 14:08:00 12 /min [facility] Oxygen saturation in Arterial blood by Pulse oximetry 2022-11-13 14:08:00 99 /min [facility] Body temperature 2022-11-13 13:38:00 36.39 Verna [facility] Body height 2022-11-13 12:15:00 167.6 cm [facility] Body weight 2022-11-13 12:15:00 95.21 kg [facility] BMI 2022-11-13 12:15:00 33.88 kg/m2 [facility] Systolic blood pressure 2022-11-13 12:15:00 142 mm[Hg] [facility] Diastolic blood pressure 2022-11-13 12:15:00 66 mm[Hg] [facility] Heart rate 2022-11-13 12:15:00 77 /min [facility] Body temperature 2022-11-13 12:15:00 36 Verna [facility] Respiratory rate 2022-11-13 12:15:00 21 /min [facility] Body height 2022-11-13 12:15:00 167.6 cm [facility] Body weight 2022-11-13 12:15:00 95.21 kg [facility] BMI 2022-11-13 12:15:00 33.88 kg/m2 [facility] Oxygen saturation in Arterial blood by Pulse oximetry 2022-11-13 12:15:00 95 /min [facility] Systolic blood pressure 2022-11-03 15:35:00 154 mm[Hg] [facility] Diastolic blood pressure 2022-11-03 15:35:00 86 mm[Hg] [facility] Heart rate 2022-11-03 15:35:00 86 /min [facility] Body temperature 2022-11-03 15:35:00 37 Verna [facility] Respiratory rate 2022-11-03 15:35:00 18 /min [facility] Body height 2022-11-03 15:35:00 167.6 cm [facility] Body weight 2022-11-03 15:35:00 97.523 kg [facility] BMI 2022-11-03 15:35:00 34.70 kg/m2 [facility] Oxygen saturation in Arterial blood by Pulse oximetry 2022-11-03 15:35:00 99 /min [facility] Systolic blood pressure 2022-10-19 12:35:00 159 mm[Hg] Provider Notified [facility] Diastolic blood pressure 2022-10-19 12:35:00 85 mm[Hg] Provider Notified [facility] Heart rate 2022-10-19 12:35:00 94 /min [facility] Body temperature 2022-10-19 12:33:00 36.78 Verna [facility] Respiratory rate 2022-10-19 12:33:00 16 /min [facility] Body height 2022-10-19 12:33:00 167.6 cm [facility] Body weight 2022-10-19 12:33:00 96.616 kg [facility] BMI 2022-10-19 12:33:00 34.38 kg/m2 [facility] Oxygen saturation in Arterial blood by Pulse oximetry 2022-10-19 12:33:00 98 /min [facility] Systolic blood pressure 2023-07-26 14:17:00 177 mm[Hg] [facility] Diastolic blood pressure 2023-07-26 14:17:00 92 mm[Hg] [facility] Heart rate 2023-07-26 14:17:00 97 /min [facility] Body temperature 2023-07-26 14:17:00 36.39 Verna [facility] Respiratory rate 2023-07-26 14:17:00 18 /min [facility] Body height 2023-07-26 14:17:00 167.6 cm [facility] Body weight 2023-07-26 14:17:00 100.472 kg [facility] BMI 2023-07-26 14:17:00 35.75 kg/m2 [facility] Oxygen saturation in Arterial blood by Pulse oximetry 2023-07-26 14:17:00 97 /min [facility] Systolic blood pressure 2023-06-08 07:00:00 112 mm[Hg] [facility] Diastolic blood pressure 2023-06-08 07:00:00 62 mm[Hg] [facility] Heart rate 2023-06-08 07:00:00 72 /min [facility] Respiratory rate 2023-06-08 07:00:00 20 /min [facility] Oxygen saturation in Arterial blood by Pulse oximetry 2023-06-08 07:00:00 97 /min [facility] Body weight 2023-06-08 02:41:00 108.863 kg [facility] BMI 2023-06-08 02:41:00 38.74 kg/m2 [facility] Body temperature 2023-06-08 02:38:00 36.67 Verna [facility] Body height 2023-06-08 02:34:00 167.6 cm [facility] Systolic blood pressure 2023-02-15 15:53:00 132 mm[Hg] [facility] Diastolic blood pressure 2023-02-15 15:53:00 73 mm[Hg] [facility] Heart rate 2023-02-15 15:53:00 74 /min [facility] Body temperature 2023-02-15 15:53:00 36.44 Verna [facility] Respiratory rate 2023-02-15 15:53:00 16 /min [facility] Body height 2023-02-15 15:53:00 167.6 cm [facility] Body weight 2023-02-15 15:53:00 100.336 kg [facility] BMI 2023-02-15 15:53:00 35.70 kg/m2 [facility] Oxygen saturation in Arterial blood by Pulse oximetry 2023-02-15 15:53:00 100 /min [facility] Systolic blood pressure 2023-01-22 15:03:00 144 mm[Hg] [facility] Diastolic blood pressure 2023-01-22 15:03:00 83 mm[Hg] [facility] Heart rate 2023-01-22 15:03:00 97 /min [facility] Respiratory rate 2023-01-22 15:00:00 18 /min [facility] Body height 2023-01-22 15:00:00 167.6 cm [facility] Body weight 2023-01-22 15:00:00 95.2 kg [facility] BMI 2023-01-22 15:00:00 33.88 kg/m2 [facility] Systolic blood pressure 2022-11-13 14:08:00 117 mm[Hg] [facility] Diastolic blood pressure 2022-11-13 14:08:00 70 mm[Hg] [facility] Heart rate 2022-11-13 14:08:00 64 /min [facility] Respiratory rate 2022-11-13 14:08:00 12 /min [facility] Oxygen saturation in Arterial blood by Pulse oximetry 2022-11-13 14:08:00 99 /min [facility] Body temperature 2022-11-13 13:38:00 36.39 Verna [facility] Body height 2022-11-13 12:15:00 167.6 cm [facility] Body weight 2022-11-13 12:15:00 95.21 kg [facility] BMI 2022-11-13 12:15:00 33.88 kg/m2 [facility] Systolic blood pressure 2022-11-03 15:35:00 154 mm[Hg] [facility] Diastolic blood pressure 2022-11-03 15:35:00 86 mm[Hg] [facility] Heart rate 2022-11-03 15:35:00 86 /min [facility] Body temperature 2022-11-03 15:35:00 37 Verna [facility] Respiratory rate 2022-11-03 15:35:00 18 /min [facility] Body height 2022-11-03 15:35:00 167.6 cm [facility] Body weight 2022-11-03 15:35:00 97.523 kg [facility] BMI 2022-11-03 15:35:00 34.70 kg/m2 [facility] Oxygen saturation in Arterial blood by Pulse oximetry 2022-11-03 15:35:00 99 /min [facility] Systolic blood pressure 2022-10-04 14:26:00 149 mm[Hg] [facility] Diastolic blood pressure 2022-10-04 14:26:00 76 mm[Hg] [facility] Heart rate 2022-10-04 14:26:00 78 /min [facility] Respiratory rate 2022-10-04 14:21:00 18 /min [facility] Body height 2022-10-04 14:21:00 167.6 cm [facility] Body weight 2022-10-04 14:21:00 96.843 kg [facility] BMI 2022-10-04 14:21:00 34.46 kg/m2 [facility] Systolic blood pressure 2022-07-26 13:22:00 135 mm[Hg] [facility] Diastolic blood pressure 2022-07-26 13:22:00 78 mm[Hg] [facility] Heart rate 2022-07-26 13:22:00 85 /min [facility] Respiratory rate 2022-07-26 13:22:00 18 /min [facility] Body height 2022-07-26 13:22:00 167.6 cm [facility] Body weight 2022-07-26 13:22:00 97.523 kg [facility] BMI 2022-07-26 13:22:00 34.70 kg/m2 [facility] Systolic blood pressure 2022-02-15 14:59:00 131 mm[Hg] [facility] Diastolic blood pressure 2022-02-15 14:59:00 70 mm[Hg] [facility] Heart rate 2022-02-15 14:59:00 81 /min [facility] Respiratory rate 2022-02-15 14:59:00 18 /min [facility] Body height 2022-02-15 14:59:00 167.6 cm [facility] Body weight 2022-02-15 14:59:00 102.967 kg [facility] BMI 2022-02-15 14:59:00 36.64 kg/m2 [facility] Respiratory rate 2022-01-11 17:11:00 18 /min [facility] Body height 2022-01-11 17:11:00 167.6 cm [facility] Body weight 2022-01-11 17:11:00 100.699 kg [facility] BMI 2022-01-11 17:11:00 35.83 kg/m2 [facility] Systolic blood pressure 2021-08-24 14:24:00 133 mm[Hg] [facility] Diastolic blood pressure 2021-08-24 14:24:00 73 mm[Hg] [facility] Heart rate 2021-08-24 14:24:00 69 /min [facility] Respiratory rate 2021-08-24 14:24:00 18 /min [facility] Body height 2021-08-24 14:24:00 167.6 cm [facility] Body weight 2021-08-24 14:24:00 100.245 kg [facility] BMI 2021-08-24 14:24:00 35.67 kg/m2 [facility] Oxygen saturation in Arterial blood by Pulse oximetry 2021-06-07 15:30:00 96 /min [facility] Body temperature 2021-06-07 14:20:30 37.44 Verna [facility] Procedures Procedure Date / Time Performed Performing Clinician Source URINALYSIS 2023-06-08 03:45:00 Rhiannon Vizcarra [facility] URINE DRUG (IMMUNOASSAY) - COMPREHENSIVE DRUG SCREEN W/O REFLEX 2023-06-08 03:45:00 Marysol Pabon [facility] URINALYSIS 2023-06-08 03:45:00 Rhiannon Vizcarra [facility] URINE DRUG (IMMUNOASSAY) - COMPREHENSIVE DRUG SCREEN W/O REFLEX 2023-06-08 03:45:00 Marysol Pabon [facility] CT STROKE ANGIOGRAM HEAD 2023-06-08 02:56:58 Rhiannon Vizcarra [facility] CT STROKE ANGIOGRAM NECK 2023-06-08 02:56:58 Rhiannon Vizcarra [facility] HB ECG ROUTINE & RHYTHM STRIP 2023-06-08 02:53:51 Rhiannon Vizcarra [facility] CT STROKE HEAD WO CONTRAST 2023-06-08 02:48:28 Rhiannon Vizcarra [facility] TROPONIN I 2023-06-08 02:45:00 Rhiannon Vizcarra [facility] BASIC METABOLIC PANEL (NA, K , CL, CO2, GLUCOSE, BUN, CREATININE, CA) 2023-06-08 02:45:00 Rhiannon Vizcarra [facility] LITHIUM 2023-06-08 02:45:00 Marysol Pabon [facility] ETHANOL 2023-06-08 02:45:00 StanMarysol walters [facility] CBC WITHOUT DIFF 2023-06-08 02:45:00 Rhiannon Vizcarra [facility] PROTHROMBIN TIME / INR 2023-06-08 02:45:00 Rhiannon Vizcarra [facility] ACTIVATED PARTIAL THRMPLAS CIPRIANO 2023-05-15 6 02:45:00 Rhiannon Vizcarra [facility] EXTRA TUBE LAV 2023-06-08 02:45:00 StanMarysol walters [facility] PROTHROMBIN TIME / INR 2023-06-08 02:45:00 Rhiannon Vizcarra [facility] ACTIVATED PARTIAL THRMPLAS CIPRIANO 2023-05-15 6 02:45:00 Rhiannon Vizcarra [facility] CBC WITHOUT DIFF 2023-06-08 02:45:00 Rhiannon Vizcarra [facility] TROPONIN I 2023-06-08 02:45:00 Rhiannon Vizcarra [facility] BASIC METABOLIC PANEL (NA, K , CL, CO2, GLUCOSE, BUN, CREATININE, CA) 2023-06-08 02:45:00 Rhiannon Vizcarra [facility] ETHANOL 2023-06-08 02:45:00 Marysol Pabon [facility] LITHIUM 2023-06-08 02:45:00 Marysol Pabon [facility] EXTRA TUBE LAV 2023-06-08 02:45:00 Marysol Pabon [facility] POCT GLUCOSE(AGE >30DAYS) 2023-06-08 02:39:00 Rhiannon Vizcarra [facility] POCT GLUCOSE(AGE >30DAYS) 2023-06-08 02:39:00 Rhiannon Vizcarra [facility] IRON PANEL 2023-02-15 16:30:00 Elidia Cordero [facility] FERRITIN SERUM 2023-02-15 16:30:00 Elidia Cordero [facility] LITHIUM 2023-01-22 16:35:00 Rosalind Freed [facility] CONSENT/REFUSAL FOR DIAGNOSI S AND TREATMENT 2023-01-22 14:56:09 Doctor Unassigned, [facility] CONSENT/REFUSAL FOR DIAGNOSI S AND TREATMENT 2023-01-22 14:56:09 Doctor Unassigned, [facility] SURGICAL PATHOLOGY EXAM 2022-11-13 13:05:00 Bossman [facility] ESOPHAGOGASTRODUODENOSCOPY 2022-11-13 12:47:00 Bossman [facility] COLONOSCOPY 2022-11-13 12:47:00 Bossman [facility] ESOPHAGOGASTRODUODENOSCOPY 2022-11-13 12:47:00 Bossman [facility] COLONOSCOPY 2022-11-13 12:47:00 Bossman [facility] COLONOSCOPY (ENDO) 2022-11-13 12:28:53 Jewel [facility] COLONOSCOPY (ENDO) 2022-11-13 12:28:53 Jewel [facility] COLONOSCOPY (ENDO) 2022-11-13 12:28:53 [facility] EGD (ENDO) 2022-11-13 12:19:29 Jewel [facility] EGD (ENDO) 2022-11-13 12:19:29 Jewel [facility] EGD (ENDO) 2022-11-13 12:19:29 [facility] CONSENT/REFUSAL FOR DIAGNOSI S AND TREATMENT 2022-11-13 12:17:09 Doctor Unassigned, [facility] CONSENT/REFUSAL FOR DIAGNOSI S AND TREATMENT 2022-11-13 12:17:09 Doctor Unassigned, [facility] ASSIGNMENT OF BENEFITS 2022-11-13 11:59:03 Doctor Unassigned, [facility] ASSIGNMENT OF BENEFITS 2022-11-13 11:59:03 Doctor Unassigned, [facility] ENDOSCOPY PROCEDURE DOCUMENTATION 2022-02 002 05:01:00 Doctor Unassigned, [facility] ENDOSCOPY PROCEDURE DOCUMENTATION 2022-02 002 05:01:00 Doctor Unassigned, [facility] COMP. METABOLIC PANEL (05596) 2022-11-03 16:24:00 Dora Newman [facility] CBC WITH DIFF 2022-11-03 16:24:00 Dora Newman [facility] POCT TEST 2022-11-03 16:24:00 Dora Newman [facility] CBC WITH DIFF 2022-11-03 16:24:00 Dora Newman [facility] POCT TEST 2022-11-03 16:24:00 Dora Newman [facility] COMP. METABOLIC PANEL (60890) 2022-11-03 16:24:00 Dora Newman [facility] URINALYSIS 2022-11-03 16:18:00 Dora Newman [facility] URINALYSIS 2022-11-03 16:18:00 Dora Newman [facility] RAPID STREP SCREEN FOR GROUP A 2022-10-14 2 16:14:00 Dora Newman [facility] RAPID STREP SCREEN FOR GROUP A 2022-10-14 2 16:14:00 Dora Newman [facility] THROAT CULTURE 2022-11-03 16:14:00 Dora Newman [facility] CONSENT/REFUSAL FOR DIAGNOSI S AND TREATMENT 2022-11-03 15:27:05 Doctor Unassigned, [facility] CONSENT/REFUSAL FOR DIAGNOSI S AND TREATMENT 2022-11-03 15:27:05 Doctor Unassigned, [facility] EMERGENCY SERVICES AGREEMENT S AND AUTHORIZATIONS 2022-11-03 05:01:00 Doctor Unassigned, [facility] HELICOBACTER PYLORI ANTIGEN, FECAL BY EIA 2022-10-19 13:44:00 Elidia Cordero [facility] HELICOBACTER PYLORI ANTIGEN, FECAL BY EIA 2022-10-19 13:44:00 Elidia Cordero [facility] FERRITIN SERUM 2022-10-19 13:35:00 Elidia Cordero [facility] IRON PANEL 2022-10-19 13:35:00 Elidia Cordero [facility] CELIAC SCREEN 2022-10-19 13:35:00 Elidia Cordero [facility] LAB ONLY CELIAC SCREEN IGA 2022-10-19 13:35:00 Elidia Cordero [facility] IRON PANEL 2022-10-19 13:35:00 Elidia Cordero [facility] CELIAC SCREEN 2022-10-19 13:35:00 Elidia Cordero [facility] FERRITIN SERUM 2022-10-19 13:35:00 Elidia Cordero [facility] LAB ONLY CELIAC SCREEN IGA 2022-10-19 13:35:00 Elidia Cordero [facility] DISCLOSURE AND CONSENT, MEDI JAVAD AND SURGICAL PROCEDURES 2022-10-19 05:01:00 Doctor Unassigned, [facility] DISCLOSURE AND CONSENT, MEDI JAVAD AND SURGICAL PROCEDURES 2022-10-19 05:01:00 Doctor Unassigned, [facility] REFERRAL- REQUEST/RESPONSE 2022-10-12 05:01:00 Doctor Unassigned, [facility] REFERRAL- REQUEST/RESPONSE 2022-10-12 05:01:00 Doctor Unassigned, [facility] THYROID STIMULATING HORMONE 2022-10-05 15:15:00 Rosalind Freed [facility] COMP. METABOLIC PANEL (82554) 2022-10-05 15:15:00 Rosalind Freed [facility] LIPID PANEL (42976)(TOTAL CHOLESTEROL, TRIGLYCERIDES, HDL) 2022-10-05 15:15:00 Rosalind Freed [facility] LITHIUM 2022-10-05 15:15:00 Sara Hester [facility] CBC WITH DIFF 2022-10-05 15:15:00 Abdiaziz [facility] GLYCOSYLATED HEMOGLOBIN (A1C) 2022-10-05 15:15:00 Abdiaziz [facility] CBC WITH DIFF 2022-10-05 15:15:00 Abdiaziz [facility] COMP. METABOLIC PANEL (03679) 2022-10-05 15:15:00 Abdiaziz [facility] GLYCOSYLATED HEMOGLOBIN (A1C) 2022-10-05 15:15:00 Abdiaziz [facility] LIPID PANEL (95642)(TOTAL CHOLESTEROL, TRIGLYCERIDES, HDL) 2022-10-05 15:15:00 Abdiaziz [facility] THYROID STIMULATING HORMONE 2022-10-05 15:15:00 Abdiaziz [facility] LITHIUM 2022-10-05 15:15:00 Sara Hester [facility] ASSIGNMENT OF BENEFITS 2022-10-04 14:17:30 Doctor Unassigned, [facility] ASSIGNMENT OF BENEFITS 2022-10-04 14:17:30 Doctor Unassigned, [facility] LITHIUM 2022-07-26 14:49:00 Angela Sage [facility] PATIENT FINANCIAL POLICY 2022-07-26 13:16:12 Doctor Unassigned, [facility] PATIENT FINANCIAL POLICY 2022-07-26 13:16:12 Doctor Unassigned, [facility] EXTERNAL PROVIDER RECORDS 2022-04-08 06:01:00 Doctor Unassigned, [facility] EXTERNAL PROVIDER RECORDS 2022-04-08 06:01:00 Doctor Unassigned, [facility] EXTERNAL PROVIDER RECORDS 2022-02-21 06:01:00 Doctor Unassigned, [facility] EXTERNAL PROVIDER RECORDS 2022-02-21 06:01:00 Doctor Unassigned, [facility] LITHIUM 2022-02-15 15:58:00 Angela Sage [facility] CONSENT/REFUSAL FOR DIAGNOSI S AND TREATMENT 2022-01-11 17:10:16 Doctor Unassigned, [facility] CONSENT/REFUSAL FOR DIAGNOSI S AND TREATMENT 2022-01-11 17:10:16 Doctor Unassigned, [facility] EXTERNAL PROVIDER RECORDS 2020-11-26 05:01:00 Doctor Unassigned, [facility] Encounters Start Date/Time End Date/Time Encounter Type Admission Type Attending [facility] Care Department Encounter ID Source 2020-12-13 10:09:54 Emergency [facility] [id number] [facility] 2020-12-11 04:02:45 Emergency [facility] [id number] [facility] 2023-08-08 00:00:00 2023-08-08 12:08:14 Case Management Consuelo [facility] 1.0.114 350.1.13.10 4.2.7.2.686 [id number] [facility] 2023-07-02 00:00:00 2023-08-04 18:20:55 [facility] 1.0.114 350.1.13.10 4.2.7.2.686 [id number] [facility] 2023-08-03 00:00:00 2023-08-03 08:18:24 Telephone [facility] 1.840.114 350.1.13.10 4.2.7.2.686 [id number] [facility] 2023-07-30 00:00:00 2023-07-30 15:44:[address] [facility] 1.840.114 350.1.13.10 4.2.7.2.686 [id number] [facility] 2023-07-26 09:30:00 2023-07-26 10:00:00 Office Visit Jose Westbrook Abdullah Azzam 1.2.840.1 75749.1.1 3.104.2.7 .3.594840 .8 [id number] [facility] 2023-07-26 09:30:00 2023-07-26 09:30:00 Outpatient JOSE TRAN [facility] [id number] [facility] 2023-07-26 00:00:00 2023-07-26 00:00:00 Travel 1.2.840.1 34151.1.1 3.104.2.7 .3.240917 .8 1.2.840.114 350.1.13.10 4.2.7.3.698 084.8 [id number] [facility] 2023-07-18 10:15:00 2023-07-18 10:15:00 Outpatient R FARZANA SAUCEDA [facility] [id number] [facility] 2023-07-16 00:00:00 2023-07-16 00:00:00 Travel 1.2.840.1 98510.1.1 3.104.2.7 .3.528940 .8 1.2.840.114 350.1.13.10 4.2.7.3.698 084.8 [id number] [facility] 2023-07-02 00:00:00 2023-07-02 12:41:14 Telephone Elidia Cordero 1.2.840.1 10585.1.1 3.104.2.7 .3.372706 .8 [id number] [facility] 2023-06-13 00:00:00 2023-06-13 10:19:53 Letter (Out) 1.2.840.1 95057.1.1 3.104.2.7 .3.871919 .8 [id number] [facility] 2023-06-07 21:35:00 2023-06-08 02:20:00 Emergency X MARYSOL PABON [facility] ERT [id number] [facility] 2023-06-07 21:35:00 2023-06-08 02:20:00 Emergency Marysol Pabon Whitney T 1.2.840.1 20067.1.1 3.104.2.7 .3.957017 .8 [id number] [facility] 2023-06-07 00:00:00 2023-06-07 00:00:00 Travel 1.2.840.1 78747.1.1 3.104.2.7 .3.844925 .8 1.2.840.114 350.1.13.10 4.2.7.3.698 084.8 [id number] [facility] 2023-05-29 00:00:00 2023-06-04 10:54:35 Patient Secure Dominic Ly 1.2.840.1 20507.1.1 3.104.2.7 .3.269296 .8 [id number] [facility] 2023-05-28 08:45:00 2023-05-28 08:45:00 Outpatient DAVIDSON MEYER [facility] [id number] [facility] 2023-05-25 00:00:00 2023-05-25 00:00:00 Travel 1.2.840.1 75742.1.1 3.104.2.7 .3.169578 .8 1.2.840.114 350.1.13.10 4.2.7.3.698 084.8 [id number] [facility] 2023-05-22 08:17:37 2023-05-22 08:17:37 Outpatient SAM VARGAS [id number] Robert Cali 2023-05-11 00:00:00 2023-05-11 17:06:28 Telephone Elidia Cordero 1.2.840.1 55667.1.1 3.104.2.7 .3.121028 .8 [id number] [facility] 2023-05-09 00:00:00 2023-05-09 17:14:57 Patient Secure Msg Dominic Keita 1.2.840.1 48484.1.1 3.104.2.7 .3.852186 .8 [id number] [facility] 2023-05-08 10:00:00 2023-05-08 10:00:00 Outpatient EMILIA WU [facility] [id number] [facility] 2023-03-28 00:00:00 2023-04-28 18:05:02 Patient Secure Msg Doctor Unassigned, [facility] 1.2.840.1 89414.1.1 3.104.2.7 .3.375714 .8 [id number] [facility] 2023-04-18 08:00:00 2023-04-18 08:00:00 Outpatient FARZANA UGALDE [facility] [id number] [facility] 2023-04-17 00:00:00 2023-04-17 00:00:00 Travel 1.2.840.1 32244.1.1 3.104.2.7 .3.850285 .8 1.2.840.114 350.1.13.10 4.2.7.3.698 084.8 [id number] [facility] 2023-04-11 13:00:00 2023-04-11 13:00:00 Outpatient EMILIA WU [facility] [id number] [facility] 2023-04-11 13:00:00 2023-04-11 13:00:00 Outpatient EMILIA WU [facility] [id number] [facility] 2023-04-04 08:00:00 2023-04-04 08:00:00 Outpatient R [facility] [id number] [facility] 2023-04-02 00:00:00 2023-04-02 00:00:00 Travel 1.2.840.1 57491.1.1 3.104.2.7 .3.802611 .8 1.2.840.114 350.1.13.10 4.2.7.3.698 084.8 [id number] [facility] 2023-03-09 00:00:00 2023-03-09 00:00:00 Telephone Elidia Corderoraven 1.2.840.1 72934.1.1 3.104.2.7 .3.599134 .8 [id number] [facility] 2023-03-08 00:00:00 2023-03-08 00:00:00 Telephone Elidia Corderoraven 1.2.840.1 34507.1.1 3.104.2.7 .3.911483 .8 [id number] [facility] 2023-02-28 10:15:00 2023-02-28 10:15:00 Outpatient R SARA HESTER KIMBERLY [facility] [id number] [facility] 2023-02-27 00:00:00 2023-02-27 00:00:00 Travel 1.2.840.1 30057.1.1 3.104.2.7 .3.670948 .8 1.2.840.114 350.1.13.10 4.2.7.3.698 084.8 [id number] [facility] 2023-02-15 10:30:00 2023-02-15 10:45:00 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 Visit Jewel Cunha [facility] 1.2.840.1 44678.1.1 3.104.2.7 .3.539674 .8 [id number] [facility] 2023-02-15 09:30:00 2023-02-15 10:00:00 Office Visit Jewel Cunha Abdullah Zhannadedra 1.2.840.1 29526.1.1 3.104.2.7 .3.418426 .8 [id number] [facility] 2023-02-15 09:30:00 2023-02-15 09:30:00 Outpatient R JEWEL CUNHA [facility] [id number] [facility] 2023-02-15 00:00:00 2023-02-15 00:00:00 Travel 1.2.840.1 73623.1.1 3.104.2.7 .3.564022 .8 1.2.840.114 350.1.13.10 4.2.7.3.698 084.8 [id number] [facility] 2023-01-23 13:00:00 2023-01-23 13:00:00 Outpatient R JENNY ARRIAGA RIZWAN [facility] [id number] [facility] 2023-01-22 10:15:00 2023-01-22 10:30:00 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 Visit Dexter Dias [facility] 1.2.840.1 15547.1.1 3.104.2.7 .3.122687 .8 [id number] [facility] 2023-01-22 09:30:00 2023-01-22 10:07:50 Outpatient R DEXTER DIAS [facility] [id number] [facility] 2023-01-22 00:00:00 2023-01-22 00:00:00 Orders Only Doctor Unassigned, [facility] 1.2.840.1 71381.1.1 3.104.2.7 .3.901988 .8 [id number] [facility] 2023-01-22 00:00:00 2023-01-22 00:00:00 Travel 1.2.840.1 77057.1.1 3.104.2.7 .3.768408 .8 1.2.840.114 350.1.13.10 4.2.7.3.698 084.8 [id number] [facility] 2023-01-15 00:00:00 2023-01-15 00:00:00 Telephone Elidia Cordero 1.2.840.1 48285.1.1 3.104.2.7 .3.145939 .8 [id number] [facility] 2023-01-12 00:00:00 2023-01-12 00:00:00 Patient Secure Msg Dominic Keita 1.2.840.1 28357.1.1 3.104.2.7 .3.637727 .8 [id number] [facility] 2022-12-29 09:30:00 2022-12-29 09:30:00 Outpatient JENNY SESAY RIZWAN [facility] [id number] [facility] 2022-12-29 00:00:00 2022-12-29 00:00:00 Telephone Elidia Cordero 1.2.840.1 29347.1.1 3.104.2.7 .3.754223 .8 [id number] [facility] 2022-12-29 00:00:00 2022-12-29 00:00:00 Telephone Elidia Cordero 1.2.840.1 71440.1.1 3.104.2.7 .3.929010 .8 [id number] [facility] 2022-12-28 00:00:00 2022-12-28 00:00:00 Case Management Elidia Corderodedra 1.2.840.1 92186.1.1 3.104.2.7 .3.908759 .8 [id number] [facility] 2022-12-20 16:00:00 2022-12-20 16:46:31 Outpatient R [facility] [id number] [facility] 2022-12-20 09:49:08 2022-12-20 09:49:08 Outpatient [facility] [id number] Robert Cali 2022-12-19 00:00:00 2022-12-19 00:00:00 Travel 1.2.840.1 18923.1.1 3.104.2.7 .3.067959 .8 1.2.840.114 350.1.13.10 4.2.7.3.698 084.8 [id number] [facility] 2022-12-18 09:30:00 2022-12-18 09:30:00 Outpatient R [facility] [id number] [facility] 2022-12-18 00:00:00 2022-12-18 00:00:00 Telephone Elidia Cordero 1.2.840.1 23761.1.1 3.104.2.7 .3.024161 .8 [id number] [facility] 2022-12-14 00:00:00 2022-12-14 00:00:00 Patient Secure Msg Doctor Unassigned, [facility] 1.2.840.1 40918.1.1 3.104.2.7 .3.558420 .8 [id number] [facility] 2022-12-11 08:45:00 2022-12-11 08:45:00 Outpatient R [facility] [id number] [facility] 2022-12-10 00:00:00 2022-12-10 00:00:00 Outpatient GC_GCBZW_Ka dilakhwindera_S PRIV PRIV [id number] [facility] 2022-12-08 15:30:00 2022-12-08 15:30:00 Outpatient R JENNY ARRIAGA RIZWAN [facility] [id number] [facility] 2022-12-06 08:00:00 2022-12-06 08:00:00 Outpatient R BROOKEALVIN FIORBRENT [facility] [id number] [facility] 2022-11-29 00:00:00 2022-11-29 00:00:00 Telephone Elidia Corderozam 1.2.840.1 08130.1.1 3.104.2.7 .3.783608 .8 [id number] [facility] 2022-11-27 00:00:00 2022-11-27 00:00:00 Telephone Elidia Corderozam 1.2.840.1 89600.1.1 3.104.2.7 .3.445865 .8 [id number] [facility] 2022-11-27 00:00:00 2022-11-27 00:00:00 Telephone Elidia Corderozam 1.2.840.1 75462.1.1 3.104.2.7 .3.044692 .8 [id number] [facility] 2022-11-23 00:00:00 2022-11-23 00:00:00 Telephone Elidia Corderozam 1.2.840.1 32950.1.1 3.104.2.7 .3.667308 .8 [id number] [facility] 2022-11-23 00:00:00 2022-11-23 00:00:00 Telephone Elidia Corderozam 1.2.840.1 86289.1.1 3.104.2.7 .3.012445 .8 [id number] [facility] 2022-11-22 09:30:00 2022-11-22 09:30:00 Outpatient R [facility] [id number] [facility] 2022-11-16 00:00:00 2022-11-16 00:00:00 Telephone Elidia Cordero 1.2.840.1 64300.1.1 3.104.2.7 .3.743367 .8 [id number] [facility] 2022-11-16 00:00:00 2022-11-16 00:00:00 Patient Secure Msg Dominic Keita 1.2.840.1 72239.1.1 3.104.2.7 .3.569968 .8 [id number] [facility] 2022-11-13 06:59:00 2022-11-13 09:48:00 Outpatient R DOMINIC KEITA [facility] [id number] [facility] 2022-11-13 06:59:00 2022-11-13 09:48:00 Hospital Encounter Dominic Keita 1.2.840.1 53553.1.1 3.104.2.7 .3.383881 .8 [id number] [facility] 2022-11-13 07:58:00 2022-11-13 08:33:00 Anesthesia Event Hunetr Cruz Joan 1.2.840.1 44568.1.1 3.104.2.7 .3.409404 .8 [id number] [facility] 2022-11-13 07:15:00 2022-11-13 08:15:00 Surgery Dominic Keita 1.2.840.1 62320.1.1 3.104.2.7 .3.559335 .8 [id number] [facility] 2022-11-13 00:00:00 2022-11-13 00:00:00 Orders Only Doctor Unassigned, [facility] 1.2.840.1 99384.1.1 3.104.2.7 .3.117253 .8 [id number] [facility] 2022-11-13 00:00:00 2022-11-13 00:00:00 Telephone Dominic Keita 1.2.840.1 09463.1.1 3.104.2.7 .3.945015 .8 [id number] [facility] 2022-11-13 00:00:00 2022-11-13 00:00:00 Travel 1.2.840.1 77384.1.1 3.104.2.7 .3.344310 .8 1.2.840.114 350.1.13.10 4.2.7.3.698 084.8 [id number] [facility] 2022-11-10 00:00:00 2022-11-10 00:00:00 Outpatient R RADIOLOGY [facility] [id number] [facility] 2022-11-10 00:00:00 2022-11-10 00:00:00 Patient Secure Msg Dominic Keita 1.2.840.1 25248.1.1 3.104.2.7 .3.185853 .8 [id number] [facility] 2022-11-09 00:00:00 2022-11-09 00:00:00 Patient Secure Msg Doctor Unassigned, [facility] 1.2.840.1 27306.1.1 3.104.2.7 .3.643366 .8 [id number] [facility] 2022-11-07 00:00:00 2022-11-07 00:00:00 Patient Secure Msg Doctor Unassigned, [facility] 1.2.840.1 76255.1.1 3.104.2.7 .3.606560 .8 [id number] [facility] 2022-11-03 10:36:00 2022-11-03 13:16:00 Emergency X DORA NEWMAN [facility] ERT [id number] [facility] 2022-11-03 10:36:00 2022-11-03 13:16:00 Emergency Dora Newman 1.2.840.1 80407.1.1 3.104.2.7 .3.866005 .8 [id number] [facility] 2022-11-03 00:00:00 2022-11-03 00:00:00 Travel 1.2.840.1 03095.1.1 3.104.2.7 .3.746703 .8 1.2.840.114 350.1.13.10 4.2.7.3.698 084.8 [id number] [facility] 2022-10-30 00:00:00 2022-10-30 00:00:00 Case Management Elidia Cordero 1.2.840.1 17187.1.1 3.104.2.7 .3.556951 .8 [id number] [facility] 2022-10-19 08:30:00 2022-10-19 08:45:00 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 Visit Jewel Cunha [facility] 1.2.840.1 27612.1.1 3.104.2.7 .3.523956 .8 [id number] [facility] 2022-10-19 07:30:00 2022-10-19 08:15:30 Outpatient R JEWEL CUNHA [facility] [id number] [facility] 2022-10-19 07:30:00 2022-10-19 08:15:30 Office Visit Jewel Cunha Abdullah Azzam 1.2.840.1 57491.1.1 3.104.2.7 .3.073202 .8 [id number] [facility] 2022-10-19 00:00:00 2022-10-19 00:00:00 Orders Only Doctor Unassigned, [facility] 1.2.840.1 79188.1.1 3.104.2.7 .3.420141 .8 [id number] [facility] 2022-10-18 00:00:00 2022-10-18 00:00:00 Travel 1.2.840.1 28788.1.1 3.104.2.7 .3.392125 .8 1.2.840.114 350.1.13.10 4.2.7.3.698 084.8 [id number] [facility] 2022-10-12 09:56:06 2022-10-12 09:56:06 Outpatient [facility] [id number] Robert Cali 2022-10-12 00:00:00 2022-10-12 00:00:00 Orders Only Doctor Unassigned, [facility] 1.2.840.1 97407.1.1 3.104.2.7 .3.764827 .8 [id number] [facility] 2022-10-05 10:15:00 2022-10-05 10:30:00 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 Visit Salvatore Vences, [facility] 1.2.840.1 67526.1.1 3.104.2.7 .3.943630 .8 [id number] [facility] 2022-10-05 10:15:00 2022-10-05 10:15:00 Outpatient SALVATORE CABRAL [facility] [id number] [facility] 2022-10-04 09:30:00 2022-10-04 10:30:11 Outpatient R DEXTER DIAS [facility] [id number] [facility] 2022-10-04 00:00:00 2022-10-04 00:00:00 Orders Only Doctor Unassigned, [facility] 1.2.840.1 90707.1.1 3.104.2.7 .3.050526 .8 [id number] [facility] 2022-10-04 00:00:00 2022-10-04 00:00:00 Travel 1.2.840.1 96023.1.1 3.104.2.7 .3.907409 .8 1.2.840.114 350.1.13.10 4.2.7.3.698 084.8 [id number] [facility] 2022-10-02 00:00:00 2022-10-02 00:00:00 Travel 1.2.840.1 15595.1.1 3.104.2.7 .3.147343 .8 1.2.840.114 350.1.13.10 4.2.7.3.698 084.8 [id number] [facility] 2022-09-06 08:45:00 2022-09-06 08:45:00 Outpatient SARA DELGADILLO KIMBERLY [facility] [id number] [facility] 2022-09-06 00:00:00 2022-09-06 00:00:00 Travel 1.2.840.1 53154.1.1 3.104.2.7 .3.845096 .8 1.2.840.114 350.1.13.10 4.2.7.3.698 084.8 [id number] [facility] 2022-07-26 11:00:00 2022-07-26 11:15:00 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 Visit Pathology [facility]-Lab 1.2.840.1 11415.1.1 3.104.2.7 .3.294501 .8 [id number] [facility] 2022-07-26 08:45:00 2022-07-26 09:37:46 Outpatient SARA DELGADILLO KIMBERLY [facility] [id number] [facility] 2022-07-26 00:00:00 2022-07-26 00:00:00 Orders Only Doctor Unassigned, [facility] 1.2.840.1 97070.1.1 3.104.2.7 .3.046856 .8 [id number] [facility] 2022-07-26 00:00:00 2022-07-26 00:00:00 Travel 1.2.840.1 52266.1.1 3.104.2.7 .3.114461 .8 1.2.840.114 350.1.13.10 4.2.7.3.698 084.8 [id number] [facility] 2022-07-24 13:24:12 2022-07-24 13:24:12 Outpatient SFA [facility] [id number] Robert Cali 2022-06-27 13:49:18 2022-06-27 13:49:18 Outpatient SFA [facility] [id number] Robert Cali 2022-06-21 08:52:50 2022-06-21 08:52:50 Outpatient SFA SFA [id number] Robert Cali 2022-06-15 15:23:34 2022-06-15 15:23:34 Outpatient SFA SFA [id number] Robert Cali 2022-05-31 08:45:00 2022-05-31 08:45:00 Outpatient SARA DELGADILLO KIMBERLY [facility] [id number] [facility] 2022-05-30 11:55:27 2022-05-30 11:55:27 Outpatient SFA SFA [id number] Robert Cali 2022-05-23 11:17:29 2022-05-23 11:17:29 Outpatient SFA SFA [id number] Robert Cali 2022-05-12 08:06:11 2022-05-12 08:06:11 Outpatient SFA SFA [id number] Robert Cali 2022-05-11 13:45:44 2022-05-11 13:45:44 Outpatient SFA SFA [id number] Robert Cali 2022-04-08 00:00:00 2022-04-08 00:00:00 Orders Only Doctor Unassigned, [facility] 1.2.840.1 01034.1.1 3.104.2.7 .3.179549 .8 [id number] [facility] 2022-02-21 00:00:00 2022-02-21 00:00:00 Orders Only Doctor Unassigned, [facility] 1.2.840.1 37357.1.1 3.104.2.7 .3.458865 .8 [id number] [facility] 2022-02-15 13:30:00 2022-02-15 13:45:00 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 Visit Pathology [facility]-Lab 1.2.840.1 52137.1.1 3.104.2.7 .3.514640 .8 [id number] [facility] 2022-02-15 08:45:00 2022-02-15 10:52:26 Outpatient R DEXTER DIAS [facility] [id number] [facility] 2022-02-15 00:00:00 2022-02-15 00:00:00 Travel 1.2.840.1 69496.1.1 3.104.2.7 .3.893465 .8 1.2.840.114 350.1.13.10 4.2.7.3.698 084.8 [id number] [facility] 2022-01-11 11:00:00 2022-01-11 12:39:46 Outpatient R SARA HESTER KIMBERLY [facility] [id number] [facility] 2022-01-11 00:00:00 2022-01-11 00:00:00 Orders Only Doctor Unassigned, [facility] 1.2.840.1 64819.1.1 3.104.2.7 .3.379938 .8 [id number] [facility] 2022-01-11 00:00:00 2022-01-11 00:00:00 Travel 1.2.840.1 93859.1.1 3.104.2.7 .3.606800 .8 1.2.840.114 350.1.13.10 4.2.7.3.698 084.8 [id number] [facility] 2021-11-24 09:30:2021-11-24 09:30:00 Outpatient R IGOR SAAVEDRA [facility] [id number] [facility] 2021-11-16 11:00:00 2021-11-16 11:00:00 Outpatient R SARA HESTER KIMBERLY [facility] [id number] [facility] 2021-10-26 08:00:00 2021-10-26 08:00:00 Outpatient R DEXTER DIAS [facility] [id number] [facility] 2021-10-20 10:00:00 2021-10-20 10:00:00 Outpatient R IGOR SAAVEDRA [facility] [id number] [facility] 2021-10-03 14:30:00 2021-10-03 14:30:00 Outpatient R DAVIDSON SUTHERLAND [facility] [id number] [facility] 2021-09-21 09:30:00 2021-09-21 09:30:00 Outpatient R AIDE [facility] [id number] [facility] 2021-08-24 09:30:00 2021-08-24 10:41:34 Outpatient R AIDE [facility] [id number] [facility] 2021-08-24 00:00:00 2021-08-24 00:00:00 Travel 1.2.840.1 38659.1.1 3.104.2.7 .3.935501 .8 1.2.840.114 350.1.13.10 4.2.7.3.698 084.8 [id number] [facility] 2021-07-25 09:00:00 2021-07-25 09:00:00 Outpatient R AIDE [facility] [id number] [facility] 2021-06-22 11:15:00 2021-06-22 12:18:05 Outpatient R SARA HESTER KIMBERLY [facility] [id number] [facility] 2021-06-22 11:15:00 2021-06-22 11:15:00 Outpatient R SUKHJINDER HESTERBERLY KACIESUKHJINDER MCNEILBERLY [facility] [id number] [facility] 2021-06-22 00:00:00 2021-06-22 00:00:00 Travel 1.2.840.1 24226.1.1 3.104.2.7 .3.801920 .8 1.2.840.114 350.1.13.10 4.2.7.3.698 084.8 [id number] [facility] 2021-06-20 11:15:00 2021-06-20 11:15:00 Outpatient R LARISSA [facility] [id number] [facility] 2021-06-20 11:15:00 2021-06-20 11:15:00 Outpatient R LARISSA [facility] [id number] [facility] 2021-06-08 09:20:00 2021-06-08 09:20:00 Outpatient R HILARY MOORE STRAHIL [facility] [id number] [facility] 2021-06-08 00:00:00 2021-06-08 00:00:00 Patient Secure Igor William Rai [facility] 1.2.840.114 350.1.13.10 4.2.7.2.686 [id number] [facility] 2021-06-07 09:13:00 2021-06-07 10:50:00 Emergency X GIGI MONROY [facility] ERT [id number] [facility] 2021-06-07 09:13:00 2021-06-07 10:50:00 Emergency Gigi Monroy [facility] 1.2.840.114 350.1.13.10 4.2.7.2.686 [id number] [facility] 2021-06-07 09:13:00 2021-06-07 10:50:00 Emergency Gigi Monroy 1.2.840.1 43314.1.1 3.104.2.7 .3.827489 .8 [id number] [facility] 2021-06-07 00:00:00 2021-06-07 00:00:00 Outpatient IGOR Castaneda RAI [facility] [id number] [facility] 2021-06-07 00:00:00 2021-06-07 00:00:00 Orders Only Doctor Unassigned, [facility] 1.2.840.114 350.1.13.10 4.2.7.2.686 [id number] [facility] 2021-06-07 00:00:00 2021-06-07 00:00:00 Travel 1.2.840.1 15022.1.1 3.104.2.7 .3.713859 .8 1.2.840.114 350.1.13.10 4.2.7.3.698 084.8 [id number] [facility] 2021-06-07 00:00:00 2021-06-07 00:00:00 Orders Only Doctor Unassigned, [facility] 1.2.840.1 71709.1.1 3.104.2.7 .3.353235 .8 [id number] [facility] 2021-06-03 00:00:00 2021-06-03 00:00:00 Travel 1.2.840.1 57427.1.1 3.104.2.7 .3.212427 .8 1.2.840.114 350.1.13.10 4.2.7.3.698 084.8 [id number] [facility] 2021-05-27 00:00:00 2021-05-27 00:00:00 Outpatient IGOR Castaneda RAI [facility] [id number] [facility] 2021-05-27 00:00:00 2021-05-27 00:00:00 Outpatient IGOR Castaneda RAI [facility] [id number] [facility] 2021-05-25 00:00:00 2021-05-25 00:00:00 Patient Secure Msg Doctor Unassigned, [facility] 1.2.840.114 350.1.13.10 4.2.7.2.686 [id number] [facility] 2021-05-25 00:00:00 2021-05-25 00:00:00 Patient Secure Msg Doctor Unassigned, [facility] 1.2.840.1 47765.1.1 3.104.2.7 .3.602890 .8 [id number] [facility] 2021-05-20 00:00:00 2021-05-20 00:00:00 Telephone Zane Martinez 1.2.840.1 76793.1.1 3.104.2.7 .3.961350 .8 [id number] [facility] 2021-05-20 00:00:00 2021-05-20 00:00:00 Telephone Zane Martinez 1.2.840.1 70897.1.1 3.104.2.7 .3.209789 .8 [id number] [facility] 2021-05-18 00:00:00 2021-05-18 00:00:00 Travel 1.2.840.1 99278.1.1 3.104.2.7 .3.282557 .8 1.2.840.114 350.1.13.10 4.2.7.3.698 084.8 [id number] [facility] 2021-05-18 00:00:00 2021-05-18 00:00:00 Travel 1.2.840.1 74013.1.1 3.104.2.7 .3.013671 .8 1.2.840.114 350.1.13.10 4.2.7.3.698 084.8 [id number] [facility] 2021-05-17 13:15:00 2021-05-17 13:30:00 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 Visit Pcp-Lab Igor Saavedra [facility] 1.2.840.114 350.1.13.10 4.2.7.2.686 [id number] [facility] 2021-05-17 13:15:00 2021-05-17 13:30:00 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 Visit Igor Saavedra [facility] 1.2.840.1 80218.1.1 3.104.2.7 .3.085637 .8 [id number] [facility] 2021-05-17 13:15:00 2021-05-17 13:30:00 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 Visit Igor Saavedra [facility]-Lab 1.2.840.1 81108.1.1 3.104.2.7 .3.842537 .8 [id number] [facility] 2021-05-17 09:00:00 2021-05-17 10:25:05 Outpatient R IGOR SAAVEDRA [facility] [id number] [facility] 2021-05-17 09:00:00 2021-05-17 10:25:05 Office Visit Igor Saavedra Neeharika 1.2.840.1 92556.1.1 3.104.2.7 .3.980847 .8 [id number] [facility] 2021-05-17 09:00:00 2021-05-17 10:25:05 Outpatient R IGOR SAAVEDRA [facility] [id number] [facility] 2021-05-17 09:30:00 2021-05-17 09:30:00 Outpatient R IGOR SAAVEDRA [facility] [id number] [facility] 2021-05-17 00:00:00 2021-05-17 00:00:00 Travel 1.2.840.1 77677.1.1 3.104.2.7 .3.290640 .8 1.0.114 350.1.13.10 4.2.7.3.698 084.8 [id number] [facility] 2021-05-17 00:00:00 2021-05-17 00:00:00 Travel 1.2840.1 10563.1.1 3.104.2.7 .3.757005 .8 1..114 350.1.13.10 4.2.7.3.698 084.8 [id number] [facility] 2021-04-26 09:00:00 2021-04-26 09:00:00 Outpatient R [facility] [id number] [facility] 2021-04-26 09:00:00 2021-04-26 09:00:00 Outpatient AVELINO NAGEL [facility] [id number] [facility] 2021-04-20 08:45:00 2021-04-20 08:45:00 Outpatient SARA DELGADILLO KIMBERLY [facility] [id number] [facility] 2021-04-11 08:40:00 2021-04-11 08:40:00 Outpatient SALLY FIGUEROA HOWARD [facility] [id number] [facility] 2021-04-11 08:40:00 2021-04-11 08:40:00 Outpatient SALLY FIGUEROA HOWARD [facility] [id number] [facility] 2021-03-21 08:00:00 2021-03-21 08:00:00 Outpatient SALLY FIGUEROA HOWARD [facility] [id number] [facility] 2021-03-17 00:00:00 2021-03-17 00:00:00 Patient Secure Msg Doctor Unassigned, [facility] 1.840.114 350.1.13.10 4.2.7.2.686 [id number] [facility] 2021-03-17 00:00:00 2021-03-17 00:00:00 Patient Secure Msg Doctor Unassigned, [facility] 1.2.840.1 76085.1.1 3.104.2.7 .3.278083 .8 [id number] [facility] 2021-03-17 00:00:00 2021-03-17 00:00:00 Patient Secure Msg Doctor Unassigned, [facility] 1.2.840.1 74199.1.1 3.104.2.7 .3.721386 .8 [id number] [facility] 2021-03-16 13:15:00 2021-03-16 13:30:00 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 Visit Salbador Lockwood P[facility]-Lab 1.2.840.1 70427.1.1 3.104.2.7 .3.817909 .8 [id number] [facility] 2021-03-16 13:15:00 2021-03-16 13:30:00 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 Visit Salbador Lockwood [facility]-Lab 1.2.840.1 17480.1.1 3.104.2.7 .3.868040 .8 [id number] [facility] 2021-03-16 13:15:00 2021-03-16 13:15:00 Outpatient SLABADOR CRONIN [facility] [id number] [facility] 2021-03-16 12:00:00 2021-03-16 12:09:51 Outpatient SARA DELGADILLO KIMBERLY [facility] [id number] [facility] 2021-03-16 12:00:00 2021-03-16 12:09:51 Outpatient SARA DELGADILLO KIMBERLY [facility] [id number] [facility] 2021-03-16 12:00:00 2021-03-16 12:00:00 Outpatient SARA DELGADILLO KIMBERLY [facility] [id number] [facility] 2021-03-16 00:00:00 2021-03-16 00:00:00 Travel 1.2.840.1 62464.1.1 3.104.2.7 .3.412877 .8 1.2.840.114 350.1.13.10 4.2.7.3.698 084.8 [id number] [facility] 2021-03-16 00:00:00 2021-03-16 00:00:00 Travel 1.2.840.1 95288.1.1 3.104.2.7 .3.394805 .8 1.2.840.114 350.1.13.10 4.2.7.3.698 084.8 [id number] [facility] 2021-03-11 09:44:00 2021-03-11 13:06:00 Emergency X HALIMA CONNOR [facility] ERT [id number] [facility] 2021-03-11 09:44:00 2021-03-11 13:06:00 Emergency Halima Connor 1.2.840.1 18717.1.1 3.104.2.7 .3.042253 .8 [id number] [facility] 2021-03-11 09:44:00 2021-03-11 13:06:00 Emergency X HALIMA CONNOR [facility] ERT [id number] [facility] 2021-03-11 09:44:00 2021-03-11 13:06:00 Emergency Halima Connor 1.2.840.1 84806.1.1 3.104.2.7 .3.045996 .8 [id number] [facility] 2021-03-11 09:44:00 2021-03-11 13:06:00 Emergency X HALIMA CONNOR [facility] ERT [id number] [facility] 2021-03-11 09:44:00 2021-03-11 09:44:00 Emergency X HALIMA CONNOR [facility] ERT [id number] [facility] 2021-03-11 00:00:00 2021-03-11 00:00:00 Travel 1.2.840.1 46648.1.1 3.104.2.7 .3.285890 .8 1.2.840.114 350.1.13.10 4.2.7.3.698 084.8 [id number] [facility] 2021-03-11 00:00:00 2021-03-11 00:00:00 Travel 1.2.840.1 34667.1.1 3.104.2.7 .3.198079 .8 1.2.840.114 350.1.13.10 4.2.7.3.698 084.8 [id number] [facility] 2021-03-08 15:00:00 2021-03-08 15:15:00 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 Visit Salbador Lockwood Pcp-Lab 1.2.840.1 30808.1.1 3.104.2.7 .3.315134 .8 [id number] [facility] 2021-03-08 15:00:00 2021-03-08 15:15:00 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 Visit Salbador Lockwood [facility]-Lab 1.2.840.1 16917.1.1 3.104.2.7 .3.430326 .8 [id number] [facility] 2021-03-08 15:00:00 2021-03-08 15:00:00 Outpatient R SALBADOR LOCKWOOD [facility] [id number] [facility] 2021-01-31 10:15:00 2021-01-31 10:55:06 Outpatient DEXTER MIRELES [facility] [id number] [facility] 2020-12-29 08:00:00 2020-12-29 08:41:00 Outpatient DEXTER MIRELES [facility] [id number] [facility] 2020-12-29 08:00:00 2020-12-29 08:41:00 Outpatient R DEXTER DIAS [facility] [id number] [facility] 2020-12-29 00:00:00 2020-12-29 00:00:00 Travel 1.2.840.1 07494.1.1 3.104.2.7 .3.439020 .8 1.2.840.114 350.1.13.10 4.2.7.3.698 084.8 [id number] [facility] 2020-12-29 00:00:00 2020-12-29 00:00:00 Travel 1.2.840.1 90949.1.1 3.104.2.7 .3.814724 .8 1.2.840.114 350.1.13.10 4.2.7.3.698 084.8 [id number] [facility] 2020-12-22 09:30:00 2020-12-22 09:30:00 Outpatient R DEXTER DIAS [facility] [id number] [facility] 2020-12-22 09:30:00 2020-12-22 09:30:00 Outpatient R DEXTER DIAS [facility] [id number] [facility] 2020-11-26 00:00:00 2020-11-26 00:00:00 Orders Only Doctor Unassigned, [facility] 1.2.840.114 350.1.13.10 4.2.7.2.686 [id number] [facility] 2020-11-10 09:30:00 2020-11-10 09:30:00 Outpatient R ROBERT NOWAK [facility] [id number] [facility] 2020-11-10 00:00:00 2020-11-10 00:00:00 Orders Only Doctor Unassigned, [facility] 1.2.840.1 33440.1.1 3.104.2.7 .3.652019 .8 [id number] [facility] 2020-11-10 00:00:00 2020-11-10 00:00:00 Travel 1.2.840.1 61085.1.1 3.104.2.7 .3.666170 .8 1.2.840.114 350.1.13.10 4.2.7.3.698 084.8 [id number] [facility] 2020-10-11 08:00:00 2020-10-11 08:00:00 Outpatient R SELF [facility] [id number] [facility] 2020-10-11 00:00:00 2020-10-11 00:00:00 Travel 1.2.840.1 63433.1.1 3.104.2.7 .3.735195 .8 1.2.840.114 350.1.13.10 4.2.7.3.698 084.8 [id number] [facility] 2020-09-13 08:00:00 2020-09-13 08:00:00 Outpatient R SELF, [facility] [id number] [facility] 2020-09-13 00:00:00 2020-09-13 00:00:00 Travel 1.2.840.1 66022.1.1 3.104.2.7 .3.939343 .8 1.2.840.114 350.1.13.10 4.2.7.3.698 084.8 [id number] [facility] 2020-09-02 16:12:00 2020-09-02 20:21:00 Emergency Patti Rose 1.2.840.1 41612.1.1 3.104.2.7 .3.508340 .8 [id number] [facility] 2020-09-02 16:12:00 2020-09-02 20:21:00 Emergency Patti Rose [facility] 1.2.840.114 350.1.13.10 4.2.7.2.686 [id number] 2020-09-02 00:00:00 2020-09-02 00:00:00 Travel 1.2.840.1 86801.1.1 3.104.2.7 .3.788741 .8 1.2.840.114 350.1.13.10 4.2.7.3.698 084.8 [id number] [facility] 2020-09-02 00:00:00 2020-09-02 00:00:00 Orders Only Doctor Unassigned, [facility] 1.2.840.1 22793.1.1 3.104.2.7 .3.499122 .8 [id number] [facility] 2020-09-02 00:00:00 2020-09-02 00:00:00 Orders Only Doctor Unassigned, [facility] 1.2.840.114 350.1.13.10 4.2.7.2.686 [id number] [id number] 2020-08-25 09:15:00 2020-08-25 09:15:00 Outpatient R [facility] [id number] [facility] 2020-08-09 08:45:00 2020-08-09 08:45:00 Outpatient R DEXTER DIAS [facility] [id number] [facility] 2020-06-28 13:45:00 2020-06-28 13:45:00 Outpatient R SALBADOR LOCKWOOD [facility] [id number] [facility] 2020-06-21 15:15:00 2020-06-21 15:15:00 Outpatient R DEXTER DIAS [facility] [id number] [facility] 2020-06-07 08:45:00 2020-06-07 08:45:00 Outpatient R DEXTER DIAS [facility] [id number] [facility] 2020-05-25 08:30:00 2020-05-25 08:30:00 Outpatient R CRISTO MARTINEZ [facility] [id number] [facility] 2020-03-15 13:00:00 2020-03-15 13:00:00 Outpatient R SALBADOR LOCKWOOD [facility] [id number] [facility] 2020-03-08 13:00:00 2020-03-08 13:00:00 Outpatient R SELFDEXTER [facility] [id number] [facility] 2020-02-16 11:00:00 2020-02-16 11:00:00 Outpatient R SELF [facility] [id number] [facility] 2020-01-27 11:45:00 2020-01-27 11:45:00 Outpatient R SELF [facility] [id number] [facility] 2020-01-19 08:00:00 2020-01-19 08:00:[id number] 2019-12-22 08:45:00 2019-12-22 08:45:00 Outpatient R SELF [facility] [id number] [facility] 2019-12-05 10:45:00 2019-12-05 10:45:00 Outpatient R JEWEL MORAES [facility] [id number] [facility] 2019-10-23 09:15:00 2019-10-23 09:15:00 Outpatient SALVATORE GLORIA [facility] [id number] [facility] 2019-10-15 11:30:00 2019-10-15 11:30:00 Outpatient R ROBERT NOWAK [facility] [id number] [facility] 2019-10-01 14:30:00 2019-10-01 14:30:00 Outpatient R ROBERT NOWAK [facility] [id number] [facility] 2019-09-01 08:45:00 2019-09-01 08:45:00 Outpatient R SELFDEXTER [facility] [id number] [facility] 2019-08-06 13:00:00 2019-08-06 13:00:00 Outpatient ANGELA HERRERA [facility] [id number] [facility] Results Test Description Test Time Test Comments Results Result Comments Source CT ACUTE STROKE ANGIOGRAM HEAD 13:46:46 CT STROKE ANGIOGRAM HEAD, CT STROKE ANGIOGRAM NECK HISTORY: 47 years old, Female with Neuro deficit, acute, stroke suspectedRad: please obtain POCT creatinine prior to CTA head/neck TECHNIQUE: CTA of the head and neck was performed with IV contrast. MIPreconstructions were performed. COMPARISON: None. FINDINGS: CTA NECK: Aortic arch and major vessels: There is a three-vessel aortic arch. Thevessels originating from the arch are patent. Carotid arteries: Both common carotid arteries are patent. The carotidbifurcations and distal cervical ICA segments are widely patent. Vertebral arteries: The vertebral arteries originate from the subclavianarteries and patent bilaterally. CTA HEAD: The origins of both posterior-inferior cerebellar arteries are identified.The basilar artery is normal in caliber. The superior cerebellar arteriesare patent. The HAND BRIM IRONER are patent bilaterally. No sizable posteriorcommunicating arteries are seen. The petrous, cavernous and supraclinoid internal carotid segments arewidely patent. The GIBSON and MCA are patent bilaterally. An anteriorcommunicating artery is seen. The dural venous sinuses are opacified and unremarkable. [facility] CT ACUTE STROKE ANGIOGRAM NECK 13:46:46 CT STROKE ANGIOGRAM HEAD, CT STROKE ANGIOGRAM NECK HISTORY: 47 years old, Female with Neuro deficit, acute, stroke suspectedRad: please obtain POCT creatinine prior to CTA head/neck TECHNIQUE: CTA of the head and neck was performed with IV contrast. MIPreconstructions were performed. COMPARISON: None. FINDINGS: CTA NECK: Aortic arch and major vessels: There is a three-vessel aortic arch. Thevessels originating from the arch are patent. Carotid arteries: Both common carotid arteries are patent. The carotidbifurcations and distal cervical ICA segments are widely patent. Vertebral arteries: The vertebral arteries originate from the subclavianarteries and patent bilaterally. CTA HEAD: The origins of both posterior-inferior cerebellar arteries are identified.The basilar artery is normal in caliber. The superior cerebellar arteriesare patent. The HAND BRIM IRONER are patent bilaterally. No sizable posteriorcommunicating arteries are seen. The petrous, cavernous and supraclinoid internal carotid segments arewidely patent. The GIBSON and MCA are patent bilaterally. An anteriorcommunicating artery is seen. The dural venous sinuses are opacified and unremarkable. [facility] CT ACUTE STROKE ANGIOGRAM HEAD 13:46:46 CT STROKE ANGIOGRAM HEAD, CT STROKE ANGIOGRAM NECK HISTORY: 47 years old, Female with Neuro deficit, acute, stroke suspectedRad: please obtain POCT creatinine prior to CTA head/neck TECHNIQUE: CTA of the head and neck was performed with IV contrast. MIPreconstructions were performed. COMPARISON: None. FINDINGS: CTA NECK: Aortic arch and major vessels: There is a three-vessel aortic arch. Thevessels originating from the arch are patent. Carotid arteries: Both common carotid arteries are patent. The carotidbifurcations and distal cervical ICA segments are widely patent. Vertebral arteries: The vertebral arteries originate from the subclavianarteries and patent bilaterally. CTA HEAD: The origins of both posterior-inferior cerebellar arteries are identified.The basilar artery is normal in caliber. The superior cerebellar arteriesare patent. The HAND BRIM IRONER are patent bilaterally. No sizable posteriorcommunicating arteries are seen. The petrous, cavernous and supraclinoid internal carotid segments arewidely patent. The GIBSON and MCA are patent bilaterally. An anteriorcommunicating artery is seen. The dural venous sinuses are opacified and unremarkable. [facility] CT ACUTE STROKE ANGIOGRAM NECK 13:46:46 CT STROKE ANGIOGRAM HEAD, CT STROKE ANGIOGRAM NECK HISTORY: 47 years old, Female with Neuro deficit, acute, stroke suspectedRad: please obtain POCT creatinine prior to CTA head/neck TECHNIQUE: CTA of the head and neck was performed with IV contrast. MIPreconstructions were performed. COMPARISON: None. FINDINGS: CTA NECK: Aortic arch and major vessels: There is a three-vessel aortic arch. Thevessels originating from the arch are patent. Carotid arteries: Both common carotid arteries are patent. The carotidbifurcations and distal cervical ICA segments are widely patent. Vertebral arteries: The vertebral arteries originate from the subclavianarteries and patent bilaterally. CTA HEAD: The origins of both posterior-inferior cerebellar arteries are identified.The basilar artery is normal in caliber. The superior cerebellar arteriesare patent. The HAND BRIM IRONER are patent bilaterally. No sizable posteriorcommunicating arteries are seen. The petrous, cavernous and supraclinoid internal carotid segments arewidely patent. The GIBSON and MCA are patent bilaterally. An anteriorcommunicating artery is seen. The dural venous sinuses are opacified and unremarkable. [facility] CT ACUTE STROKE HEAD WO CONTRAST 13:44:48 EXAM: CT STROKE HEAD WO CONTRAST HISTORY: 47 years-old Female; Provided indication: Neuro deficit, acute,stroke suspected. Aggressively shaking followed by a period ofnonresponsiveness. TECHNIQUE: Axial CT of the head was performed without intravenouscontrast.Flower l and sagittal reformats were generated. COMPARISON: None FINDINGS: The ventricles and cerebral sulci are normal in caliber and configuration.No midline shift or pathological extra-axial fluid collection is present.The basal cisterns are unremarkable. No acute intracranial hemorrhage or significant mass effect is visualized.No parenchymal attenuation abnormality is seen. The sue-white matterdifferentiation is preserved. The mastoid air cells and visualized paranasal air sinuses are clear. Thecalvarium and central skull base are unremarkable. [facility] CT ACUTE STROKE HEAD WO CONTRAST 13:44:48 EXAM: CT STROKE HEAD WO CONTRAST HISTORY: 47 years-old Female; Provided indication: Neuro deficit, acute,stroke suspected. Aggressively shaking followed by a period ofnonresponsiveness. TECHNIQUE: Axial CT of the head was performed without intravenouscontrast.Flower l and sagittal reformats were generated. COMPARISON: None FINDINGS: The ventricles and cerebral sulci are normal in caliber and configuration.No midline shift or pathological extra-axial fluid collection is present.The basal cisterns are unremarkable. No acute intracranial hemorrhage or significant mass effect is visualized.No parenchymal attenuation abnormality is seen. The sue-white matterdifferentiation is preserved. The mastoid air cells and visualized paranasal air sinuses are clear. Thecalvarium and central skull base are unremarkable. [facility]* Test Item Value Reference Range Interpretation Comme nts [place] (test code = 0599302720) 0.6 mmol/L 0.6-1.2 ZAINAB (test code = ZAINAB) Toxic Range: ? Greater than 1.2 mmol/L Lab Interpretation (test code = 32324-9) [address]04-26 04:29:26* Test Item Value Reference Range Interpretation Comme nts [place] (test code = 5577795280) 0.6 mmol/L 0.6-1.2 ZAINAB (test code = ZAINAB) Toxic Range: ? Greater than 1.2 mmol/L Lab Interpretation (test code = 12325-3) [address]04-26 04:29:26* Test Item Value Reference Range Interpretation Comme nts [place] (test code = 0267304128) 0.6 mmol/L 0.6-1.2 ZAINAB (test code = ZAINAB) Toxic Range: ? Greater than 1.2 mmol/L Lab Interpretation (test code = 45741-2) [address]04-26 04:29:26* Test Item Value Reference Range Interpretation Comme nts [place] (test code = 8851398665) 0.6 mmol/L 0.6-1.2 ZAINAB (test code = ZAINAB) Toxic Range: ? Greater than 1.2 mmol/L Lab Interpretation (test code = 10727-1) [address]04-26 04:29:26* Test Item Value Reference Range Interpretation Comme nts [place] (test code = 7589815389) 0.6 mmol/L 0.6-1.2 ZAINAB (test code = ZAINAB) Toxic Range: ? Greater than 1.2 mmol/L Lab Interpretation (test code = 48294-1) [address]04-26 04:29:26* Test Item Value Reference Range Interpretation Comme nts [place] (test code = 2141475327) 0.6 mmol/L 0.6-1.2 ZAINAB (test code = ZAINAB) Toxic Range: ? Greater than 1.2 mmol/L Lab Interpretation (test code = 71003-2) [address]04-26 04:29:26* Test Item Value Reference Range Interpretation Comme nts [place] (test code = 8774252756) 0.6 mmol/L 0.6-1.2 ZAINAB (test code = ZAINAB) Toxic Range: ? Greater than 1.2 mmol/L Lab Interpretation (test code = 68897-0) Normal [facility] 04:29:26* Test Item Value Reference Range Interpretation Comme nts [place] (test code = 5326610876) 0.6 mmol/L 0.6-1.2 ZAINAB (test code = ZAINAB) Toxic Range: ? Greater than 1.2 mmol/L Lab Interpretation (test code = 87558-9) Normal [facility]2024-04-26 03:33:22 ALCOHOL<10mg/dL06/07/2023 10:33 PM CDTUTMB LABORATORY SERVICESToxic Greater than or equal to 80 mg/dL. NOTE: Whole blood values are approximately 10% to 15% lower than serum and plasma.[facility]2024-04-26 03:33:22ALCOHOL<10mg/dL06/07/2023 10:33 PM CDTUTMB LABORATORY SERVICESToxic Greater than or equal to 80 mg/dL. NOTE: Whole blood values are approximately 10% to 15% lower than serum and plasma.[facility] 2023-06-08 03:33:22ALCOHOL<10mg/dL06/07/2023 10:33 PM CDTUTMB LABORATORY SERVICESToxic Greater than or equal to 80 mg/dL. NOTE: Whole blood values are approximately 10% to 15% lower than serum and plasma.[facility]2024-04-26 03:33:22ALCOHOL<10mg/dL06/07/2023 10:33 PM CDTUTMB LABORATORY SERVICESToxic Greater than or equal to 80 mg/dL. NOTE: Whole blood values are approximately 10% to 15% lower than serum and plasma.[facility]2024-04-26 03:33:22ALCOHOL<10mg/dL06/07/2023 10:33 PM CDTUTMB LABORATORY SERVICESToxic Greater than or equal to 80 mg/dL. NOTE: Whole blood values are approximately 10% to 15% lower than serum and plasma. [facility]2024-04-26 03:33:22 ALCOHOL<10mg/dL06/07/2023 10:33 PM CDTUTMB LABORATORY SERVICESToxic Greater than or equal to 80 mg/dL. NOTE: Whole blood values are approximately 10% to 15% lower than serum and plasma.[facility]2024-04-26 03:33:22ALCOHOL<10mg/dL06/07/2023 10:33 PM CDTUTMB LABORATORY SERVICESToxic Greater than or equal to 80 mg/dL. NOTE: Whole blood values are approximately 10% to 15% lower than serum and plasma.[facility] 2023-06-08 03:33:22ALCOHOL<10mg/dL06/07/2023 10:33 PM CDTUTMB LABORATORY SERVICESToxic Greater than or equal to 80 mg/dL. NOTE: Whole blood values are approximately 10% to 15% lower than serum and plasma.[facility]2024-04-26 03:33:22ALCOHOL<10mg/dL06/07/2023 10:33 PM CDTUTMB LABORATORY SERVICESToxic Greater than or equal to 80 mg/dL. NOTE: Whole blood values are approximately 10% to 15% lower than serum and plasma.[facility] I - Code [id number] 03:15:34* Test Item Value Reference Range Interpretation Comme nts TROPONIN I (test code = 2911643189) 0.003 ng/mL <=0.034 ZAINAB (test code = ZAINAB) Reference (Normal) Range (defined by the 99th percentile reference limit): <= 0.034 ng/mL Note: Cardiac troponin begins to rise 3-4 hours after the onset of ischemia. Repeat in 4-6 hours if the sample was drawn within 3-4 hours of the onset of the symptom and found normal. Diagnosis of myocardial injury is made with acute changes in cTn concentrations with at least one serial sample above the 99th percentile upper reference limit (URL), taken together with the patient's clinical presentation. Biotin has been reported to cause a negative bias, interpret results relative to patient's use of biotin. Lab Interpretation (test code = 02553-3) [facility] [id number] 03:15:34* Test Item Value Reference Range Interpretation Comme nts TROPONIN I (test code = 2304560520) 0.003 ng/mL <=0.034 ZAINAB (test code = ZAINAB) Reference (Normal) Range (defined by the 99th percentile reference limit): <= 0.034 ng/mL Note: Cardiac troponin begins to rise 3-4 hours after the onset of ischemia. Repeat in 4-6 hours if the sample was drawn within 3-4 hours of the onset of the symptom and found normal. Diagnosis of myocardial injury is made with acute changes in cTn concentrations with at least one serial sample above the 99th percentile upper reference limit (URL), taken together with the patient's clinical presentation. Biotin has been reported to cause a negative bias, interpret results relative to patient's use of biotin. Lab Interpretation (test code = 96512-7) Normal [facility] I - Code [id number] 03:15:34* Test Item Value Reference Range Interpretation Comme nts TROPONIN I (test code = 1313951745) 0.003 ng/mL <=0.034 ZAINAB (test code = ZAINAB) Reference (Normal) Range (defined by the 99th percentile reference limit): <= 0.034 ng/mL Note: Cardiac troponin begins to rise 3-4 hours after the onset of ischemia. Repeat in 4-6 hours if the sample was drawn within 3-4 hours of the onset of the symptom and found normal. Diagnosis of myocardial injury is made with acute changes in cTn concentrations with at least one serial sample above the 99th percentile upper reference limit (URL), taken together with the patient's clinical presentation. Biotin has been reported to cause a negative bias, interpret results relative to patient's use of biotin. Lab Interpretation (test code = 10282-5) Normal [facility] I - Code [id number] 03:15:34* Test Item Value Reference Range Interpretation Comme nts TROPONIN I (test code = 9122506788) 0.003 ng/mL <=0.034 ZAINAB (test code = ZAINAB) Reference (Normal) Range (defined by the 99th percentile reference limit): <= 0.034 ng/mL Note: Cardiac troponin begins to rise 3-4 hours after the onset of ischemia. Repeat in 4-6 hours if the sample was drawn within 3-4 hours of the onset of the symptom and found normal. Diagnosis of myocardial injury is made with acute changes in cTn concentrations with at least one serial sample above the 99th percentile upper reference limit (URL), taken together with the patient's clinical presentation. Biotin has been reported to cause a negative bias, interpret results relative to patient's use of biotin. Lab Interpretation (test code = 13183-2) Normal [facility] I - Code [id number] 03:15:34* Test Item Value Reference Range Interpretation Comme nts TROPONIN I (test code = 8369621624) 0.003 ng/mL <=0.034 ZAINAB (test code = ZAINAB) Reference (Normal) Range (defined by the 99th percentile reference limit): <= 0.034 ng/mL Note: Cardiac troponin begins to rise 3-4 hours after the onset of ischemia. Repeat in 4-6 hours if the sample was drawn within 3-4 hours of the onset of the symptom and found normal. Diagnosis of myocardial injury is made with acute changes in cTn concentrations with at least one serial sample above the 99th percentile upper reference limit (URL), taken together with the patient's clinical presentation. Biotin has been reported to cause a negative bias, interpret results relative to patient's use of biotin. Lab Interpretation (test code = 40060-3) Normal [facility] I - Code [id number] 03:15:34* Test Item Value Reference Range Interpretation Comme nts TROPONIN I (test code = 3093552094) 0.003 ng/mL <=0.034 ZAINAB (test code = ZAINAB) Reference (Normal) Range (defined by the 99th percentile reference limit): <= 0.034 ng/mL Note: Cardiac troponin begins to rise 3-4 hours after the onset of ischemia. Repeat in 4-6 hours if the sample was drawn within 3-4 hours of the onset of the symptom and found normal. Diagnosis of myocardial injury is made with acute changes in cTn concentrations with at least one serial sample above the 99th percentile upper reference limit (URL), taken together with the patient's clinical presentation. Biotin has been reported to cause a negative bias, interpret results relative to patient's use of biotin. Lab Interpretation (test code = 88303-7) Normal [facility] I - Code [id number] 03:15:34* Test Item Value Reference Range Interpretation Comme nts TROPONIN I (test code = 5172768183) 0.003 ng/mL <=0.034 ZAINAB (test code = ZAINAB) Reference (Normal) Range (defined by the 99th percentile reference limit): <= 0.034 ng/mL Note: Cardiac troponin begins to rise 3-4 hours after the onset of ischemia. Repeat in 4-6 hours if the sample was drawn within 3-4 hours of the onset of the symptom and found normal. Diagnosis of myocardial injury is made with acute changes in cTn concentrations with at least one serial sample above the 99th percentile upper reference limit (URL), taken together with the patient's clinical presentation. Biotin has been reported to cause a negative bias, interpret results relative to patient's use of biotin. Lab Interpretation (test code = 56210-7) Normal [facility] I - Code [id number] 03:15:34* Test Item Value Reference Range Interpretation Comme nts TROPONIN I (test code = 7780330982) 0.003 ng/mL <=0.034 ZAINAB (test code = ZAINAB) Reference (Normal) Range (defined by the 99th percentile reference limit): <= 0.034 ng/mL Note: Cardiac troponin begins to rise 3-4 hours after the onset of ischemia. Repeat in 4-6 hours if the sample was drawn within 3-4 hours of the onset of the symptom and found normal. Diagnosis of myocardial injury is made with acute changes in cTn concentrations with at least one serial sample above the 99th percentile upper reference limit (URL), taken together with the patient's clinical presentation. Biotin has been reported to cause a negative bias, interpret results relative to patient's use of biotin. Lab Interpretation (test code = 13971-6) Normal [facility] I - Code [id number] 03:15:34* Test Item Value Reference Range Interpretation Comme nts TROPONIN I (test code = 6960827800) 0.003 ng/mL <=0.034 ZAINAB (test code = ZAINAB) Reference (Normal) Range (defined by the 99th percentile reference limit): <= 0.034 ng/mL Note: Cardiac troponin begins to rise 3-4 hours after the onset of ischemia. Repeat in 4-6 hours if the sample was drawn within 3-4 hours of the onset of the symptom and found normal. Diagnosis of myocardial injury is made with acute changes in cTn concentrations with at least one serial sample above the 99th percentile upper reference limit (URL), taken together with the patient's clinical presentation. Biotin has been reported to cause a negative bias, interpret results relative to patient's use of biotin. Lab Interpretation (test code = 86505-7) Normal [facility] Metabolic Panel (NA, K, CL, CO2, Glucose, BUN, Creatinine, CA) - Code [id number] 03:03:47* Test Item Value Reference Range Interpretation Comme nts NA (test code = 5756984545) 135 mmol/L 135-145 K (test code = 0023766222) 4.3 mmol/L 3.5-5.0 CL (test code = 4199757169) 103 mmol/L 98-108 CO2 TOTAL (test code = 4603596006) 28 mmol/L 23-31 AGAP (test code = 5205975866) 4 2-16 BUN (test code = 7882244940) 11 mg/dL 7-23 GLUCOSE (test code = 3689373395) 120 mg/dL 70-110 H CREATININE (test code = 2160-0) 0.71 mg/dL 0.50-1.04 CALCIUM (test code = 6525403546) 9.3 mg/dL 8.6-10.6 eGFR (test code = 29844-5) 107.0 mL/min/1.73m2 CKD-EPI eGFR (2020). Assuming creatinine has been stable day-to-day for at least three months, the eGFR indicates Category G1 (>= 90 mL/min/1.73 m2) Lab Interpretation (test code = 67048-5) Abnormal [facility] Metabolic Panel (NA, K, CL, CO2, Glucose, BUN, Creatinine, CA) - Code [id number] 03:03:47* Test Item Value Reference Range Interpretation Comme nts NA (test code = 4211118420) 135 mmol/L 135-145 K (test code = 7471280299) 4.3 mmol/L 3.5-5.0 CL (test code = 7886949961) 103 mmol/L 98-108 CO2 TOTAL (test code = 4344299431) 28 mmol/L 23-31 AGAP (test code = 7273081784) 4 2-16 BUN (test code = 5780795166) 11 mg/dL 7-23 GLUCOSE (test code = 4112165007) 120 mg/dL 70-110 H CREATININE (test code = 2160-0) 0.71 mg/dL 0.50-1.04 CALCIUM (test code = 4811357846) 9.3 mg/dL 8.6-10.6 eGFR (test code = 52171-2) 107.0 mL/min/1.73m2 CKD-EPI eGFR (2020). Assuming creatinine has been stable day-to-day for at least three months, the eGFR indicates Category G1 (>= 90 mL/min/1.73 m2) Lab Interpretation (test code = 00714-0) Abnormal [facility] Metabolic Panel (NA, K, CL, CO2, Glucose, BUN, Creatinine, CA) - Code [id number] 03:03:47* Test Item Value Reference Range Interpretation Comme nts NA (test code = 1231565167) 135 mmol/L 135-145 K (test code = 5357128549) 4.3 mmol/L 3.5-5.0 CL (test code = 6687571012) 103 mmol/L 98-108 CO2 TOTAL (test code = 8370852736) 28 mmol/L 23-31 AGAP (test code = 8249629856) 4 2-16 BUN (test code = 7842729186) 11 mg/dL 7-23 GLUCOSE (test code = 4929155813) 120 mg/dL 70-110 H CREATININE (test code = 2160-0) 0.71 mg/dL 0.50-1.04 CALCIUM (test code = 1332143132) 9.3 mg/dL 8.6-10.6 eGFR (test code = 96439-1) 107.0 mL/min/1.73m2 CKD-EPI eGFR (2020). Assuming creatinine has been stable day-to-day for at least three months, the eGFR indicates Category G1 (>= 90 mL/min/1.73 m2) Lab Interpretation (test code = 38278-1) Abnormal [facility] Metabolic Panel (NA, K, CL, CO2, Glucose, BUN, Creatinine, CA) - Code [id number] 03:03:47* Test Item Value Reference Range Interpretation Comme nts NA (test code = 1556437717) 135 mmol/L 135-145 K (test code = 8600868850) 4.3 mmol/L 3.5-5.0 CL (test code = 9483784596) 103 mmol/L 98-108 CO2 TOTAL (test code = 6839904888) 28 mmol/L 23-31 AGAP (test code = 1092134463) 4 2-16 BUN (test code = 2135111882) 11 mg/dL 7-23 GLUCOSE (test code = 0546854964) 120 mg/dL 70-110 H CREATININE (test code = 2160-0) 0.71 mg/dL 0.50-1.04 CALCIUM (test code = 3460514714) 9.3 mg/dL 8.6-10.6 eGFR (test code = 66601-4) 107.0 mL/min/1.73m2 CKD-EPI eGFR (2020). Assuming creatinine has been stable day-to-day for at least three months, the eGFR indicates Category G1 (>= 90 mL/min/1.73 m2) Lab Interpretation (test code = 67466-5) Abnormal [facility] Metabolic Panel (NA, K, CL, CO2, Glucose, BUN, Creatinine, CA) - Code [id number] 03:03:47* Test Item Value Reference Range Interpretation Comme nts NA (test code = 6710578690) 135 mmol/L 135-145 K (test code = 0732856692) 4.3 mmol/L 3.5-5.0 CL (test code = 6279122272) 103 mmol/L 98-108 CO2 TOTAL (test code = 9121119601) 28 mmol/L 23-31 AGAP (test code = 0603920139) 4 2-16 BUN (test code = 6430664599) 11 mg/dL 7-23 GLUCOSE (test code = 2540758174) 120 mg/dL 70-110 H CREATININE (test code = 2160-0) 0.71 mg/dL 0.50-1.04 CALCIUM (test code = 9414263815) 9.3 mg/dL 8.6-10.6 eGFR (test code = 53391-5) 107.0 mL/min/1.73m2 CKD-EPI eGFR (2020). Assuming creatinine has been stable day-to-day for at least three months, the eGFR indicates Category G1 (>= 90 mL/min/1.73 m2) Lab Interpretation (test code = 17874-0) Abnormal [facility] Metabolic Panel (NA, K, CL, CO2, Glucose, BUN, Creatinine, CA) - Code [id number] 03:03:47* Test Item Value Reference Range Interpretation Comme nts NA (test code = 5961993556) 135 mmol/L 135-145 K (test code = 0565561880) 4.3 mmol/L 3.5-5.0 CL (test code = 3822478884) 103 mmol/L 98-108 CO2 TOTAL (test code = 9675814837) 28 mmol/L 23-31 AGAP (test code = 7006380835) 4 2-16 BUN (test code = 0265283515) 11 mg/dL 7-23 GLUCOSE (test code = 3862037532) 120 mg/dL 70-110 H CREATININE (test code = 2160-0) 0.71 mg/dL 0.50-1.04 CALCIUM (test code = 4909769900) 9.3 mg/dL 8.6-10.6 eGFR (test code = 80799-3) 107.0 mL/min/1.73m2 CKD-EPI eGFR (2020). Assuming creatinine has been stable day-to-day for at least three months, the eGFR indicates Category G1 (>= 90 mL/min/1.73 m2) Lab Interpretation (test code = 66016-5) Abnormal [facility] Metabolic Panel (NA, K, CL, CO2, Glucose, BUN, Creatinine, CA) - Code [id number] 03:03:47* Test Item Value Reference Range Interpretation Comme nts NA (test code = 1490036288) 135 mmol/L 135-145 K (test code = 1084384062) 4.3 mmol/L 3.5-5.0 CL (test code = 8793703558) 103 mmol/L 98-108 CO2 TOTAL (test code = 4659214613) 28 mmol/L 23-31 AGAP (test code = 7194193255) 4 2-16 BUN (test code = 8420586162) 11 mg/dL 7-23 GLUCOSE (test code = 7812823110) 120 mg/dL 70-110 H CREATININE (test code = 2160-0) 0.71 mg/dL 0.50-1.04 CALCIUM (test code = 8281099363) 9.3 mg/dL 8.6-10.6 eGFR (test code = 83251-5) 107.0 mL/min/1.73m2 CKD-EPI eGFR (2020). Assuming creatinine has been stable day-to-day for at least three months, the eGFR indicates Category G1 (>= 90 mL/min/1.73 m2) Lab Interpretation (test code = 42966-6) Abnormal [facility] Metabolic Panel (NA, K, CL, CO2, Glucose, BUN, Creatinine, CA) - Code Jbadbh7819-20-15 03:03:47* Test Item Value Reference Range Interpretation Comme nts NA (test code = 6110715046) 135 mmol/L 135-145 K (test code = 2175187396) 4.3 mmol/L 3.5-5.0 CL (test code = 4853996520) 103 mmol/L 98-108 CO2 TOTAL (test code = 4017398469) 28 mmol/L 23-31 AGAP (test code = 2104547685) 4 2-16 BUN (test code = 6009865475) 11 mg/dL 7-23 GLUCOSE (test code = 0315440895) 120 mg/dL 70-110 H CREATININE (test code = 2160-0) 0.71 mg/dL 0.50-1.04 CALCIUM (test code = 9457971292) 9.3 mg/dL 8.6-10.6 eGFR (test code = 93899-2) 107.0 mL/min/1.73m2 CKD-EPI eGFR (2020). Assuming creatinine has been stable day-to-day for at least three months, the eGFR indicates Category G1 (>= 90 mL/min/1.73 m2) Lab Interpretation (test code = 12778-6) [facility] (NA, K, CL, CO2, Glucose, BUN, Creatinine, CA) - Code Bhxpil1960-31-12 03:03:47* Test Item Value Reference Range Interpretation Comme nts NA (test code = 2360969578) 135 mmol/L 135-145 K (test code = 4116015406) 4.3 mmol/L 3.5-5.0 CL (test code = 8938532290) 103 mmol/L 98-108 CO2 TOTAL (test code = 6531786153) 28 mmol/L 23-31 AGAP (test code = 9061736173) 4 2-16 BUN (test code = 0435246249) 11 mg/dL 7-23 GLUCOSE (test code = 5348844950) 120 mg/dL 70-110 H CREATININE (test code = 2160-0) 0.71 mg/dL 0.50-1.04 CALCIUM (test code = 9853240914) 9.3 mg/dL 8.6-10.6 eGFR (test code = 99486-7) 107.0 mL/min/1.73m2 CKD-EPI eGFR (2020). Assuming creatinine has been stable day-to-day for at least three months, the eGFR indicates Category G1 (>= 90 mL/min/1.73 m2) Lab Interpretation (test code = 93555-5) [facility]normal [facility] - Code Wlaluc1845-64-52 03:00:48* Test Item Value Reference Range Interpretation Comme nts PROTIME PATIENT (test code = 5964-2) 10.4 10.1-12.6 INR (test code = 6301-6) 0.9 Normal INR <1.1; Warfarin Therapeutic range 2.0 to 3.0 or 2.5 to 3.5, depending upon the indications. Lab Interpretation (test code = 44493-5) Normal [facility] / [facility] - Code Lgkqyd4455-76-61 03:00:48* Test Item Value Reference Range Interpretation Comme nts PROTIME PATIENT (test code = 5964-2) 10.4 10.1-12.6 INR (test code = 6301-6) 0.9 Normal INR <1.1; Warfarin Therapeutic range 2.0 to 3.0 or 2.5 to 3.5, depending upon the indications. Lab Interpretation (test code = 90584-9) Normal [facility] BranchPro[facility] Time / INR - Code Wrsebt4528-57-21 03:00:48* Test Item Value Reference Range Interpretation Comme nts PROTIME PATIENT (test code = 5964-2) 10.4 10.1-12.6 INR (test code = 6301-6) 0.9 Normal INR <1.1; Warfarin Therapeutic range 2.0 to 3.0 or 2.5 to 3.5, depending upon the indications. Lab Interpretation (test code = 57997-9) Normal [facility] BranchProthrombin Time / INR - Code Yfadlt1851-00-11 03:00:48* Test Item Value Reference Range Interpretation Comme nts PROTIME PATIENT (test code = 5964-2) 10.4 10.1-12.6 INR (test code = 6301-6) 0.9 Normal INR <1.1; Warfarin Therapeutic range 2.0 to 3.0 or 2.5 to 3.5, depending upon the indications. Lab Interpretation (test code = 37394-6) Normal [facility] BranchProthrombin Time / INR - Code Iislyl6943-56-56 03:00:48* Test Item Value Reference Range Interpretation Comme nts PROTIME PATIENT (test code = 5964-2) 10.4 10.1-12.6 INR (test code = 6301-6) 0.9 Normal INR <1.1; Warfarin Therapeutic range 2.0 to 3.0 or 2.5 to 3.5, depending upon the indications. Lab Interpretation (test code = 75978-2) Normal [facility] BranchProthrombin Time / INR - Code Tkwdpf9744-90-93 03:00:48* Test Item Value Reference Range Interpretation Comme nts PROTIME PATIENT (test code = 5964-2) 10.4 10.1-12.6 INR (test code = 6301-6) 0.9 Normal INR <1.1; Warfarin Therapeutic range 2.0 to 3.0 or 2.5 to 3.5, depending upon the indications. Lab Interpretation (test code = 41539-2) Normal [facility] BranchProthrombin Time / INR - Code Crtixr7595-60-99 03:00:48* Test Item Value Reference Range Interpretation Comme nts PROTIME PATIENT (test code = 5964-2) 10.4 10.1-12.6 INR (test code = 6301-6) 0.9 Normal INR <1.1; Warfarin Therapeutic range 2.0 to 3.0 or 2.5 to 3.5, depending upon the indications. Lab Interpretation (test code = 92809-1) Normal [facility] - Code Sjltqy0027-73-18 03:00:48* Test Item Value Reference Range Interpretation Comme nts PROTIME PATIENT (test code = 5964-2) 10.4 10.1-12.6 INR (test code = 6301-6) 0.9 Normal INR <1.1; Warfarin Therapeutic range 2.0 to 3.0 or 2.5 to 3.5, depending upon the indications. Lab Interpretation (test code = 33937-5) Normal [facility] / [facility] - Code Kjvral3295-21-36 03:00:48* Test Item Value Reference Range Interpretation Comme nts PROTIME PATIENT (test code = 5964-2) 10.4 10.1-12.6 INR (test code = 6301-6) 0.9 Normal INR <1.1; Warfarin Therapeutic range 2.0 to 3.0 or 2.5 to 3.5, depending upon the indications. Lab Interpretation (test code = 14819-4) Normal [facility]eraP[facility] - Code Nxcwqr7327-12-80 03:00:47* Test Item Value Reference Range Interpretation Comme nts APTT Patient (test code = 3173-2) Lab Interpretation (test cod e = 91343-3) Normal [facility] - Code Tgbaoa2678-84-35 03:00:47* Test Item Value Reference Range Interpretation Comme nts APTT Patient (test code = 3173-2) 36 Lab Interpretation (test cod e = 94239-3) Normal [facility] - Code Raqlie4364-37-43 03:00:47* Test Item Value Reference Range Interpretation Comme nts APTT Patient (test code = 3173-2) 36 Lab Interpretation (test cod e = 54481-6) Normal [facility] - Code Amaeoy1495-23-62 03:00:47* Test Item Value Reference Range Interpretation Comme nts APTT Patient (test code = 3173-2) 29 -36 Lab Interpretation (test cod e = 27396-5) [facility] - Code Rcmcuy3355-83-31 03:00:47* Test Item Value Reference Range Interpretation Comme nts APTT Patient (test code = 3173-2) 29 -36 Lab Interpretation (test cod e = 08880-6) [facility] - Code Ynmifi1927-00-65 03:00:47* Test Item Value Reference Range Interpretation Comme nts APTT Patient (test code = 3173-2) 29 -36 Lab Interpretation (test cod e = 68183-1) [facility] - Code Efidbn6741-67-22 03:00:47* Test Item Value Reference Range Interpretation Comme nts APTT Patient (test code = 3173-2) 29 -36 Lab Interpretation (test cod e = 12975-8) [facility] - Code Mxhilg0167-15-39 03:00:47* Test Item Value Reference Range Interpretation Comme nts APTT Patient (test code = 3173-2) -36 Lab Interpretation (test cod e = 21541-8) [facility] - Code Dqcqgw2811-56-53 03:00:47* Test Item Value Reference Range Interpretation Comme nts APTT Patient (test code = 3173-2) -36 Lab Interpretation (test cod e = 63289-3) Normal [facility] without Diff - Code Sktjqv9124-09-78 02:52:09* Test Item Value Reference Range Interpretation Comme nts WBC (test code = 6690-2) 11.24 4.30-11.10 H RBC (test code = 789-8) 4.24 3.93-5.25 HGB (test code = 718-7) 10.6 g/dL 11.6-15.0 L HCT (test code = 4544-3) 33.3 % 35.7-45.2 L MCH (test code = 785-6) 25.0 pg 25.9-32.8 L MCV (test code = 787-2) 78.5 fL 80.6-95.5 L MCHC (test code = 786-4) 31.8 g/dL 31.6-35.1 PLT (test code = 777-3) 367 166-358 H MPV (test code = 46323-3) 11.3 fL 9.5-12.9 RDW-CV (test code = 788-0) 15.4 % 12.0-15.5 RDW-SD (test code = 86122-5) 43.8 fL 39.0-49.9 NRBC x10^3 (test code = 8001505765) See_Comment [Automated messa ge] The system which generated this result transmitted reference range: 10*3/?L. The reference range was not used to interpret this result as normal/abnormal. NRBC/100 WBC (test code = 3695220613) 0.0 0.0-10.0 IPF % (test code = 0190893780) Lab Interpretation (test code = 38223-9) Abnormal [facility] without Diff - Code Kgslcz3959-44-19 02:52:09* Test Item Value Reference Range Interpretation Comme nts WBC (test code = 6690-2) 11.24 4.30-11.10 H RBC (test code = 789-8) 4.24 3.93-5.25 HGB (test code = 718-7) 10.6 g/dL 11.6-15.0 L HCT (test code = 4544-3) 33.3 % 35.7-45.2 L MCH (test code = 785-6) 25.0 pg 25.9-32.8 L MCV (test code = 787-2) 78.5 fL 80.6-95.5 L MCHC (test code = 786-4) 31.8 g/dL 31.6-35.1 PLT (test code = 777-3) 367 166-358 H MPV (test code = 21250-0) 11.3 fL 9.5-12.9 RDW-CV (test code = 788-0) 15.4 % 12.0-15.5 RDW-SD (test code = 14166-9) 43.8 fL 39.0-49.9 NRBC x10^3 (test code = 3811542958) See_Comment [Automated messa ge] The system which generated this result transmitted reference range: 10*3/?L. The reference range was not used to interpret this result as normal/abnormal. NRBC/100 WBC (test code = 6217387001) 0.0 0.0-10.0 IPF % (test code = 5548970037) Lab Interpretation (test code = 99348-7) Abnormal [facility] without Diff - Code Flbwpd2818-26-06 02:52:09* Test Item Value Reference Range Interpretation Comme nts WBC (test code = 6690-2) 11.24 4.30-11.10 H RBC (test code = 789-8) 4.24 3.93-5.25 HGB (test code = 718-7) 10.6 g/dL 11.6-15.0 L HCT (test code = 4544-3) 33.3 % 35.7-45.2 L MCH (test code = 785-6) 25.0 pg 25.9-32.8 L MCV (test code = 787-2) 78.5 fL 80.6-95.5 L MCHC (test code = 786-4) 31.8 g/dL 31.6-35.1 PLT (test code = 777-3) 367 166-358 H MPV (test code = 51638-1) 11.3 fL 9.5-12.9 RDW-CV (test code = 788-0) 15.4 % 12.0-15.5 RDW-SD (test code = 18313-7) 43.8 fL 39.0-49.9 NRBC x10^3 (test code = 2018743469) See_Comment [Automated [employer] ge] The system which generated this result transmitted reference range: 10*3/?L. The reference range was not used to interpret this result as normal/abnormal. NRBC/100 WBC (test code = 2229304741) 0.0 0.0-10.0 IPF % (test code = 9035058972) Lab Interpretation (test code = 67567-5) Abnormal [facility] without Diff - Code Viimau9802-79-24 02:52:09* Test Item Value Reference Range Interpretation Comme nts WBC (test code = 6690-2) 11.24 4.30-11.10 H RBC (test code = 789-8) 4.24 3.93-5.25 HGB (test code = 718-7) 10.6 g/dL 11.6-15.0 L HCT (test code = 4544-3) 33.3 % 35.7-45.2 L MCH (test code = 785-6) 25.0 pg 25.9-32.8 L MCV (test code = 787-2) 78.5 fL 80.6-95.5 L MCHC (test code = 786-4) 31.8 g/dL 31.6-35.1 PLT (test code = 777-3) 367 166-358 H MPV (test code = 10283-7) 11.3 fL 9.5-12.9 RDW-CV (test code = 788-0) 15.4 % 12.0-15.5 RDW-SD (test code = 30331-6) 43.8 fL 39.0-49.9 NRBC x10^3 (test code = 7805397440) See_Comment [Automated messa ge] The system which generated this result transmitted reference range: 10*3/?L. The reference range was not used to interpret this result as normal/abnormal. NRBC/100 WBC (test code = 7383068564) 0.0 0.0-10.0 IPF % (test code = 0494601071) Lab Interpretation (test code = 65897-3) Abnormal [facility] without Diff - Code Teudqz6970-24-17 02:52:09* Test Item Value Reference Range Interpretation Comme nts WBC (test code = 6690-2) 11.24 4.30-11.10 H RBC (test code = 789-8) 4.24 3.93-5.25 HGB (test code = 718-7) 10.6 g/dL 11.6-15.0 L HCT (test code = 4544-3) 33.3 % 35.7-45.2 L MCH (test code = 785-6) 25.0 pg 25.9-32.8 L MCV (test code = 787-2) 78.5 fL 80.6-95.5 L MCHC (test code = 786-4) 31.8 g/dL 31.6-35.1 PLT (test code = 777-3) 367 166-358 H MPV (test code = 05999-4) 11.3 fL 9.5-12.9 RDW-CV (test code = 788-0) 15.4 % 12.0-15.5 RDW-SD (test code = 74418-9) 43.8 fL 39.0-49.9 NRBC x10^3 (test code = 1552390590) See_Comment [Automated messa ge] The system which generated this result transmitted reference range: 10*3/?L. The reference range was not used to interpret this result as normal/abnormal. NRBC/100 WBC (test code = 2915551028) 0.0 0.0-10.0 IPF % (test code = 1207841096) Lab Interpretation (test code = 12473-7) Abnormal [facility] without Diff - Code Pmsxid3032-78-52 02:52:09* Test Item Value Reference Range Interpretation Comme nts WBC (test code = 6690-2) 11.24 4.30-11.10 H RBC (test code = 789-8) 4.24 3.93-5.25 HGB (test code = 718-7) 10.6 g/dL 11.6-15.0 L HCT (test code = 4544-3) 33.3 % 35.7-45.2 L MCH (test code = 785-6) 25.0 pg 25.9-32.8 L MCV (test code = 787-2) 78.5 fL 80.6-95.5 L MCHC (test code = 786-4) 31.8 g/dL 31.6-35.1 PLT (test code = 777-3) 367 166-358 H MPV (test code = 15273-7) 11.3 fL 9.5-12.9 RDW-CV (test code = 788-0) 15.4 % 12.0-15.5 RDW-SD (test code = 52558-4) 43.8 fL 39.0-49.9 NRBC x10^3 (test code = 7911834561) See_Comment [Automated messa ge] The system which generated this result transmitted reference range: 10*3/?L. The reference range was not used to interpret this result as normal/abnormal. NRBC/100 WBC (test code = 0727109056) 0.0 0.0-10.0 IPF % (test code = 4051706155) Lab Interpretation (test code = 01221-7) Abnormal [facility] without Diff - Code Gxtogb0134-23-40 02:52:09* Test Item Value Reference Range Interpretation Comme nts WBC (test code = 6690-2) 11.24 4.30-11.10 H RBC (test code = 789-8) 4.24 3.93-5.25 HGB (test code = 718-7) 10.6 g/dL 11.6-15.0 L HCT (test code = 4544-3) 33.3 % 35.7-45.2 L MCH (test code = 785-6) 25.0 pg 25.9-32.8 L MCV (test code = 787-2) 78.5 fL 80.6-95.5 L MCHC (test code = 786-4) 31.8 g/dL 31.6-35.1 PLT (test code = 777-3) 367 166-358 H MPV (test code = 89465-4) 11.3 fL 9.5-12.9 RDW-CV (test code = 788-0) 15.4 % 12.0-15.5 RDW-SD (test code = 55947-9) 43.8 fL 39.0-49.9 NRBC x10^3 (test code = 1844527298) See_Comment [Automated messa ge] The system which generated this result transmitted reference range: 10*3/?L. The reference range was not used to interpret this result as normal/abnormal. NRBC/100 WBC (test code = 7846333494) 0.0 0.0-10.0 IPF % (test code = 9323150324) Lab Interpretation (test code = 64690-7) Abnormal [facility] without Diff - Code Uonqdc3993-86-45 02:52:09* Test Item Value Reference Range Interpretation Comme nts WBC (test code = 6690-2) 11.24 4.30-11.10 H RBC (test code = 789-8) 4.24 3.93-5.25 HGB (test code = 718-7) 10.6 g/dL 11.6-15.0 L HCT (test code = 4544-3) 33.3 % 35.7-45.2 L MCH (test code = 785-6) 25.0 pg 25.9-32.8 L MCV (test code = 787-2) 78.5 fL 80.6-95.5 L MCHC (test code = 786-4) 31.8 g/dL 31.6-35.1 PLT (test code = 777-3) 367 166-358 H MPV (test code = 89372-6) 11.3 fL 9.5-12.9 RDW-CV (test code = 788-0) 15.4 % 12.0-15.5 RDW-SD (test code = 49626-8) 43.8 fL 39.0-49.9 NRBC x10^3 (test code = 8327751330) See_Comment [Automated messa ge] The system which generated this result transmitted reference range: 10*3/?L. The reference range was not used to interpret this result as normal/abnormal. NRBC/100 WBC (test code = 0917011189) 0.0 0.0-10.0 IPF % (test code = 2578353355) Lab Interpretation (test code = 23864-6) Abnormal [facility] without Diff - Code Flkual7479-42-74 02:52:09* Test Item Value Reference Range Interpretation Comme nts WBC (test code = 6690-2) 11.24 4.30-11.10 H RBC (test code = 789-8) 4.24 3.93-5.25 HGB (test code = 718-7) 10.6 g/dL 11.6-15.0 L HCT (test code = 4544-3) 33.3 % 35.7-45.2 L MCH (test code = 785-6) 25.0 pg 25.9-32.8 L MCV (test code = 787-2) 78.5 fL 80.6-95.5 L MCHC (test code = 786-4) 31.8 g/dL 31.6-35.1 PLT (test code = 777-3) 367 166-358 H MPV (test code = 36021-7) 11.3 fL 9.5-12.9 RDW-CV (test code = 788-0) 15.4 % 12.0-15.5 RDW-SD (test code = 69397-0) 43.8 fL 39.0-49.9 NRBC x10^3 (test code = 1588862005) See_Comment [Automated messa ge] The system which generated this result transmitted reference range: 10*3/?L. The reference range was not used to interpret this result as normal/abnormal. NRBC/100 WBC (test code = 1950344122) 0.0 0.0-10.0 IPF % (test code = 4818372599) Lab Interpretation (test code = 40398-7) Abnormal [facility] Glucose (Age >30 Days) - Code Stroke 2023-06-08 02:39:00* Test Item Value Reference Range Interpretation Comme nts POCT Glu (age>30days) (test code = 3342) 124 mg/dL 70-110 A Lab Interpretation (test cod e = 90802-8) Abnormal [facility] Glucose (Age >30 Days) - Code Stroke 2023-06-08 02:39:00* Test Item Value Reference Range Interpretation Comme nts POCT Glu (age>30days) (test code = 3342) 124 mg/dL 70-110 A Lab Interpretation (test cod e = 88934-9) Abnormal [facility] Glucose (Age >30 Days) - Code Stroke 2023-06-08 02:39:00* Test Item Value Reference Range Interpretation Comme nts POCT Glu (age>30days) (test code = 3342) 124 mg/dL 70-110 A Lab Interpretation (test cod e = 28439-2) Abnormal [facility] Glucose (Age >30 Days) - Code Stroke 2023-06-08 02:39:00* Test Item Value Reference Range Interpretation Comme nts POCT Glu (age>30days) (test code = 3342) 124 mg/dL 70-110 A Lab Interpretation (test cod e = 21618-0) [facility]Age >30 Days) - Code Stroke 2023-06-08 02:39:00* Test Item Value Reference Range Interpretation Comme nts POCT Glu (age>30days) (test code = 3342) 124 mg/dL 70-110 A Lab Interpretation (test cod e = 98597-4) Abnormal [facility] Glucose (Age >30 Days) - Code Stroke 2023-06-08 02:39:00* Test Item Value Reference Range Interpretation Comme nts POCT Glu (age>30days) (test code = 3342) 124 mg/dL 70-110 A Lab Interpretation (test cod e = 19289-0) [facility]normal [facility] (Age >30 Days) - Code Stroke 2023-06-08 02:39:00* Test Item Value Reference Range Interpretation Comme nts POCT Glu (age>30days) (test code = 3342) 124 mg/dL 70-110 A Lab Interpretation (test cod e = 36454-7) [facility]Age >30 Days[facility] - Code Stroke 2023-06-08 02:39:00* Test Item Value Reference Range Interpretation Comme nts POCT Glu (age>30days) (test code = 3342) 124 mg/dL 70-110 A Lab Interpretation (test cod e = 45085-6) [facility]normal [facility] (Age >30 Days) - Code Stroke 2023-06-08 02:39:00* Test Item Value Reference Range Interpretation Comme nts POCT Glu (age>30days) (test code = 3342) 124 mg/dL 70-110 A Lab Interpretation (test cod e = 68945-8) [facility]normal [facility] Nhsws2904-70-61 19:59:01* Test Item Value Reference Range Interpretation Comme nts FERRITIN (test code = 6976522319) 22.4 ng/mL 6.0-137.0 ZAINAB (test code = ZAINAB) Biotin has been reported to cause a negative bias, interpret results relative to patient's use of biotin. Lab Interpretation (test code = 77171-5) Normal [facility] Awqpp1376-43-57 19:59:01* Test Item Value Reference Range Interpretation Comme nts FERRITIN (test code = 7868240857) 22.4 ng/mL 6.0-137.0 ZAINAB (test code = ZAINAB) Biotin has been reported to cause a negative bias, interpret results relative to patient's use of biotin. Lab Interpretation (test code = 52003-8) Normal [facility] Pgufs7849-02-07 19:59:01* Test Item Value Reference Range Interpretation Comme nts FERRITIN (test code = 1366401155) 22.4 ng/mL 6.0-137.0 ZAINAB (test code = ZAINAB) Biotin has been reported to cause a negative bias, interpret results relative to patient's use of biotin. Lab Interpretation (test code = 23075-2) [facility] Hsjsp6819-52-98 19:59:01* Test Item Value Reference Range Interpretation Comme nts FERRITIN (test code = 5263877981) 22.4 ng/mL 6.0-137.0 ZAINAB (test code = ZAINAB) Biotin has been reported to cause a negative bias, interpret results relative to patient's use of biotin. Lab Interpretation (test code = 75080-8) Normal [facility] Fftju7082-10-58 19:59:01* Test Item Value Reference Range Interpretation Comme nts FERRITIN (test code = 2411835197) 22.4 ng/mL 6.0-137.0 ZAINAB (test code = ZAINAB) Biotin has been reported to cause a negative bias, interpret results relative to patient's use of biotin. Lab Interpretation (test code = 11617-5) [facility] Akksk1465-74-28 19:59:01* Test Item Value Reference Range Interpretation Comme nts FERRITIN (test code = 1722481855) 22.4 ng/mL 6.0-137.0 ZAINAB (test code = ZAINAB) Biotin has been reported to cause a negative bias, interpret results relative to patient's use of biotin. Lab Interpretation (test code = 68826-8) [facility] Sddag6354-20-25 19:30:52* Test Item Value Reference Range Interpretation Comme nts IRON (test code = 4436556431) 54 ug/dL 50-160 TIBC (test code = 1359364684) 434 ug/dL 250-410 H % FE SAT (test code = 4531244673) 12 % 20-50 L Lab Interpretation (test cod e = 40285-4) Abnormal [facility] Jwice1870-84-27 19:30:52* Test Item Value Reference Range Interpretation Comme nts IRON (test code = 3889481416) 54 ug/dL 50-160 TIBC (test code = 0421679494) 434 ug/dL 250-410 H % FE SAT (test code = 1530727729) 12 % 20-50 L Lab Interpretation (test cod e = 36111-1) Abnormal [facility] Qarxj4996-47-02 19:30:52* Test Item Value Reference Range Interpretation Comme nts IRON (test code = 7282077331) 54 ug/dL 50-160 TIBC (test code = 4556115402) 434 ug/dL 250-410 H % FE SAT (test code = 5328926955) 12 % 20-50 L Lab Interpretation (test cod e = 93797-5) Abnormal [facility] Lypzr9513-86-41 19:30:52* Test Item Value Reference Range Interpretation Comme nts IRON (test code = 7286644333) 54 ug/dL 50-160 TIBC (test code = 9294309640) 434 ug/dL 250-410 H % FE SAT (test code = 7126052589) 12 % 20-50 L Lab Interpretation (test cod e = 36536-5) Abnormal [facility] Kgwxf7661-63-11 19:30:52* Test Item Value Reference Range Interpretation Comme nts IRON (test code = 5700759473) 54 ug/dL 50-160 TIBC (test code = 8379478108) 434 ug/dL 250-410 H % FE SAT (test code = 7615634965) 12 % 20-50 L Lab Interpretation (test cod e = 14051-3) Abnormal [facility] [id number] 19:30:52* Test Item Value Reference Range Interpretation Comme nts IRON (test code = 6255751524) 54 ug/dL 50-160 TIBC (test code = 5324063578) 434 ug/dL 250-410 H % FE SAT (test code = 1503318654) 12 % 20-50 L Lab Interpretation (test cod e = 19457-7) Abnormal [facility]2023-12-11 20:01:05* Test Item Value Reference Range Interpretation Comme nts [place] (test code = 1527423399) 0.5 mmol/L 0.6-1.2 L ZAINAB (test code = ZAINAB) Toxic Range: ? Greater than 1.2 mmol/L Lab Interpretation (test code = 54721-8) Abnormal [facility]2023-12-11 20:01:05* Test Item Value Reference Range Interpretation Comme nts [place] (test code = 5814254027) 0.5 mmol/L 0.6-1.2 L ZAINAB (test code = ZAINAB) Toxic Range: ? Greater than 1.2 mmol/L Lab Interpretation (test code = 45758-3) Abnormal [facility]2023-12-11 20:01:05* Test Item Value Reference Range Interpretation Comme nts [place] (test code = 5383266353) 0.5 mmol/L 0.6-1.2 L ZAINAB (test code = ZAINAB) Toxic Range: ? Greater than 1.2 mmol/L Lab Interpretation (test code = 05760-3) [facility] [id number] 19:23:05* Test Item Value Reference Range Interpretation Comme nts Case Report (test code = [id number]) Surgical Pathology ?Case: [id number] ? Authorizing Provider: ?Dominic Keita MD ? [...] HPylori ? Final Diagnosis (test code = [id number]) j8uroXJmVKRos9atTAYgcX FuZzEwMzNcZnRuYmpcdWMx JFtwodBgNXqvlSdcIJJ8QR EvUP6qyUvqeXl4sOfaXOGx osW0pCUrYMhgs5pyNNC7p0 zknhumFZPvOYyaEu1jiYBk zWrdDqBdAGEcRTe7tZ80NC JgeO0nzILdKPb9QTJrxSHa mqTgMqPxZBJwlDVugIG3PX XgQN4deqtwFZxnLBhoLPIl kaU6NLDntUJyI8DqSAAuJH 4yirfwNWK4UFuhVJQwSOO1 RoIgOJAph3Tifav7EnEklH FyZFxwbGFpblxmczIwXHBh adLQWqRNSA5JNEMRVOCLE5 sVKVANSZ5JLOPSCjcyvZMf BTMuFVDjSABJAM7QFPMeE3 cJFwPiBK2HWKTmYZBeaPMl KKYoqySXQmTZEH6QQV7NJZ wgQklPUFNZOlxwYXIgICAg XGGgEStNK0GWPRLjDLUFU9 TVJHvJGPgdTq5aCHIRSQ0T Y9eZQ6DAVKHOOI7JTTmjKW CpMNYsAZGzMD5GYLcvYJHF AE5SUZIIFMCXZRfIRGCMEJ SNNQyFASMPP2CHALmXUMVc esbsCZQoCb7sW6CRMNWNQS wgQklPUFNZOlxwYXIgICAg OOMwTFCDN1JNPbRXEH1GK6 4KDMQIBJVREA2JSMELNJnM YC1KJOXJUXYKSCEOW4CppH FyICAgICAgLSBOTyBFVklE VJ8OZLPKSfMWJUvKGMSiRC lTRUFTRVxwYXIgICAgICAt XO9HCZdyZVLNTN9RMXYXRc dBTklTTVMgSURFTlRJRklF HNGTIWPPUV8PFp3GYKNXFp xwYXJccGFyfXtccnRmMVxz v7WpG6BlZrYmWNrhyqMsNH YpFfwgbypfJYJpISV5owRe MNLyLVvoFOZvVCgoHa4qvO ZwzZepZeSrZZYbc8oqbtAJ EWftKhWdW539YFOjRFgau7 vjq5NpUCRgkARjn9G4FBPR krxiyBh3y3syNyYgMcL7vU RlKAtwD5uiejJrqBRqY2Rf iPXcyAr7tUrcC64af4W1Mg uuD0gkLIUwWPXoW0WyNB0q DOHhDvd2QYK8COW1SGJjMR FnY7YaIT9yROVtvAVwHLo2 b7aouZjrBBTzVGK5h0ucZJ ioqjA7SN1upv2psEe4x2vq czEgRGVmYXVsdCBQYXJhZ3 FclTnvMf1snBi2bGbdVdqe LRA1Qxz5CI0qdk85vaw6rU dhTAZnuxsfHdE1IAmhAZWb thilZTq1KSrrPECfiKF4SB OyqJRnQ7NgSNNzBC6jsah8 XPE3XHytWLOjVtP7BHAykY AoKNCzaVwgBUdhk355NGD4 QgLvYO0fU3Tno6P8dJ5qbH MmWLXjtZPaVfLhJBHnex9t lXPhZNsxx7YqEIR6wxK4gC AcyCXgHLIqAM16Vhfzd6Jm VrguSAU1GOAbbtTzq4Dhe7 vnMrWnngIzQ0azM6GyLWXn OAQbDVRyGqBjwvFbo7Wid6 YgvSSlyVj6s0huJKNrLVOg bPmbg2cmEQA0RFBlY3N7zZ Ylq9kzGSozCZHieXE0gqO0 TXJihYNaB8SclL8xCIOrSN 2kmiv0w0ilDWO3RMcbSYOg OgO4haA0TXIegNEpAKNixR dnEVtgp763USD6YmUsIBLe d7KmE3EugVqyO35viVbnO9 9dKNDmxPmwcN3geYworJ6i ZjBcZnMyNFxxbFxwbGFpbl xmMVxmczIwXGxhbmcxMDMz YZnvK3niRhHaAXYlyKgxKD xzg1HyZRLjWJDnOpnuehZw XHBhciBJIGhhdmUgcGVyc2 9uYWxseSByZXZpZXdlZCBh qIdjw1NvA7ihXQ2sM0SxyR ZofnAvamTaJZagMYIdv4i4 rUNeuHkwp8FauPDkHD27vn CiJRClSQR5LXIqs6etDG99 pnyoExFdjC68peWhmlUnVI Sel0ojA9diqRLqr6Xzp2Pt doToHDryt3VoUH2cxRYkpm ixaYM1BOMadVYbsqPowrR1 xEvhMUQzlT7vvW3idDymfU 2aYeFoHyNiDJdwLS5aHEXi D7gxiYPpGPYkAOKoO1rkTs TuzF6fwGoqCpwedvW6ZFOu cn19 Clinical Information (test code = [id number]) Shivani Schuler is a 47 year old female with IDA1. Gastric polyp x 6 r/o adenoma2.Duodenal Bx, r/o Celiac disease 3. Gastric Bx r/o HPylori Gross Description (test code = [id number]) y1vvkXJoWWJhaUDNDJE1BK QrCV7iuYnpvGr8rYsxTVWw wbJ5nRNzPSyxx7lbXNB6b8 dzncHKKhwxVGHvET9cSHan YJMvHH8bLtOpIVBbJdBhDZ BhcGVydzEyMjQwXHBhcGVy mYY2NMBaLU6tifevJKtxBH juTSGwkfU7YCFzcRUuN8Tz PTAlWA4wcsmhSEG3XPVZWk ukQx0xeDCjoJozAwLqQjEf YXJzZXQwXGZuaWwgQXJpYW y6pE1NRjhcOMG2LOYTTkea AzrlmYitp3YseQMoVPDlDD xcaWQgNTEwMDAgXFxkYiBP IfHdYrJ9Lwv9ALP7AlQ4EH q6OFUEYGTcLcaaGZV9OuP8 ANl3NVItUD4iLVaqtHLxAY jmMituNLzzG220MUwpBCUc Z4NvG2HnDJwvBlWcFZuqFW YoVUCfRXlvWSYeW1EJBWOs KPV5AqWqBSGzZNs0XZusL6 OIJHAhGQFiBoG4JJJzPzU8 YEz9HVBPRq2sOOqhKoDpEA e7FHL9WGo2NmVmHQRuPsVh WWEqFLAjSCfyjKOjOI3xqZ etMPYaVG1HNURkGKotEJCv UwJiP9FNK3rWYO3hCOthsA JjaFxmczIyXHBhciANClxw SYSgZG3NQGWbQIhcBQh6cc CmCDXzSuLqRASlT54jr4KH x9RaYW9NDNg3rqPazrtleI 0tQEZidiHgPXbByQZhfC5k mkUXGIbePHAsG9ZoofJvUI exDBUvqw4vqXqhFOahToQt bGVkIHdpdGggdGhlIHBhdG ukitFkK2G2prYuYI6pGGVQ RDPwgS1gUCOnIIUxv3PxrN EwpFvoU6VroMPgOpYpq0u6 dSJ0NPNbnfAoMCRabFDvAV Mzrg4gDVgdAjHgI8W1DARo MKWdo97omFI3zlCaVoTozV e6fAVmSIJ5RL1qjCkydmRz g5l2wD1zUSOgy0A6KQIqh7 I0YPMjliKagQMzlNMqOOUb YZ5vgmKdHY92IUDhFCmnMB otDJJ9VFY2VRZknNYvt7pe epohMk7nLEgaKC9qZNrrDC 49PTHeEDqxZZKlK5HfM5K0 MNinHRDhWKNxtJZngA7ttj WkyjTfrFa8DQHmOOX9sPSq oQibUEJwQzwdjPF4YMAdJx WlekQkh1KvhNt6gLBfCShk TBJmeI3fhH1rCEHuVEIior HQMiyoBIZaMPxwd4BrRYfo cGljWHNhMzAgDQpcZXBpY0 0cx6HSk9Xgm4qhxLpep8Ld fLGvSU8aaIUmMI5Vg7dzMG SwxZVmTWD7OQwza1ugPRaf WDU5ZDNkJdZoFVOqCF3UCg YrMGpvNIy0TLdtYRx5YBo5 TE4IBdEoCISeImv9BoI6Ky OxBHg1HNdqDV6PZBK2MMZr JJLkYZolJNQ5AAGoOXb0AC IgXFxzcyAzIFxcZmwgXFxu A70fkIOvNIzqTcUxEQuriZ iySAXaFYA4GD0QFXNcHgIz B3PEX3rSHR3hTnmyelHtJH QocsPSXnrjLUXwNQ2DSZEr YYvtDBh0caDpSEAdGwQoTC FfR75mj6ZCc7SpAX3TXAa2 yjZttdvrqY3eWXRmrbPxz9 IzMFxlcGljWHNiMzAgDQpT uFZsbZ2uudRULTcbWQUnA3 AtoqHwGIsuZTCppr2jxRjo IGxhYmVsbGVkIHdpdGggdG evWMIcfFldnjJaY5R1oaAw BJ3lDJGSLJCaqA9rIHGxBR PhNDMyEIAbqD9bNLO9k1Cz vsNhXPARHSYbfNjdNS32aV BjZWxpYWMgZGlzZWFzZSBh nbRjidWwn76bxoOmc8LhSR 3isXvaYDwLNFlxKfZiLW1i HIHqjgMzm9UeNY0dSZPtvS JvUSQzrbuzpVMrGWt9kUDo UYYfVxAfbKifh6LvQGJwTU xpYP25ofUkGU5dUSxaCY3z HFjvMZ8qAHKfUGEdSSDeBg RgoWKlGkBqmMAtBkTpJ12l FuERlXGfw0MfR5zfYE6dzW HpGdsryTTdRCWddQftr9Iq hEOrKKTif9TajONbQHcfYN 7pDFT1Zj1blUSgSFIrmcH3 p3GeTRmhEAEjEoanOVSfSM ukf0SsTERtxUUFg1GsVE5C XHBhciANClxzYTMwXGVwaW PWx5KzVVYQVufewTzbFeTr jJWgUaX9ETAerOGoVQA0LA 9ffPlfTGWtPNu0ETebKLRo C2ZuG0XhFSapUuXiKBwlUH OaLLPqKKitCIBgG9VUGQKi VHL8VsObKMIeGIi2VComO6 VOJVFoVEVyXeW5YIF8LrG9 GEw2YASSXl9jNPynKgQdAC QrMfE2LJk6FdHzMVImNiHy CHGlQQKnULojyPInQK2maF ioEDZfINDbKDV9CBQluHXX g2AoTCBtPWdcEuJlQVDWEO JKZL8BBpIQOGSnSmXmkRBg RW3TZRAinzFhDFmkhKwrsM 7vwJWzK2laIwLxLgyxzKos TmVzdERvYzEgDQpcbHRycG FyXGxpbjBccmluMFxzYjMw UGCpvGOTp2UpCHQRPuXeXY NpbWVuIEMgaXMgcmVjZWl2 NYMwoV5cAl8uuTUcmF8mtS ZhAGvpDCLad1w5aUO6nMGf xOI4fDWcdZrkIgFdUK2nlN PyLBXOQG46jCQigkCvWMLy yW6kBRMyPVTrZQA7tvchWM JAMJJ2zQHwk9S9KMbxBGK4 iQ8sxYiwZkIxB5S7OVRsHD Nuh22aiSF7fgZjHoHhZCPz pb8zcT0aKCoqdlSwhBbyod Bsg0M5CQMrt7X2YOXcikHm dPAzcJGoENArVcU4IOMqUm Z7LZBlAADrjWHmIJQoRJ5t VGhlIHNwZWNpbWVuIGlzIG CzsLQntbKgEMQtqg25C3sj TPPgjN9if4eoPnXaCYMhPW HeqUEboPR0ZGYepP8thS97 hrJvolUUFX9haAAhRL8RKR NiMFxlcGljWHNiMCANClxw PMKfLCpis7VgDAdbzBjgZV AvYmWcWDsHtFjqUCNCC2ud tCRnSWjtKPDNPVgDW6OQEG 7BQFCqyLAKHDM6IF6vAUvf LIEyT2MnL6YvauF8u7pnlJ hbk5WehNVwJI6tyZWnCP3R XHBhcmQgDQp9 Disclaimer (test code = [id number]) m7bcqLKdNAAzp9wqUEDtiW FuZzEwMzNcZnRuYmpcdWMx QRstsbKbDDfmn9SgE3EcGl AwMFxhbnNpXGRlZmxhbmcx HDMcELX1jqDlNLArQXfqJO IfENdaHl5ncIEbhEakZmXo AAEax0ddvbZYLMthXfMhO9 04GNOkPOijb2nve5UaXSKe fXQmq9D7ZBQFaffvvUb9hT zzZ78hg4W7JacnK0zjAYTn EZIhY5LwLI7bVDKgRcf4KJ S2GNU7EABuBILsH4XuRY5n GEOomWVpKUk3d4vmnXixCS UtZNU7i8ppNVzgrsLcLZ1g qy0wzVh1l1udbtPqNPKtXU WlgOEYRSAiF7DxaHdvHz9w xJz4wVbfNklrJCV7Qjr7GA 2skz07jmv1aAyvCIRixsmy EwM2AWafZDUcgusvLLf8XF umTPLxuQY2YJHrdRJdV3Oo RXBqYI6eceb3WVJ7UClbXB QyMiA7VIChpEZkMRPrvBil HXanf802AXE7HdVoTS0tX0 Rmm5M5nU6fcUUdXJXasPUb EpKdOQMtym7yyVSqHTojx5 FzVBS5qyE0hLMwvMZrMYRr MJ61Moknp8RxHtwek1DhR5 7vqPX9KKxhf5agNR1eEaD1 ykLmFXgvg4oafJ0oTjH4EH rrJP0xLZ5dPTGffV2apfrz XHBnYnJkcmhlYWRccGdicm PqCx3loMqbBQF9GBpbY2xk cI3yKwQ9VNwnZ1dgeH4wXF d3PKsrkEI0BNRyfS7hFC9f ghgqh4bpPDxtLJfoZFIwgt T0weN3NFTnyQNdA1TjyU6y VGKaWT7aewrkd8xbVFQ0NV wkXGQpZKF7JeZtYSHbm1Ez kgn6DwVen8DgaSPaUOuvO2 9ji646EPSimpLeR4byiKRb vtlvxEEwwkihMFpsigN7KZ PjitRcs4SpIPZbYWA2NEov YHjgoDAtZANgmEupz4lvQ8 RscGFyXHBsYWluXGYxXGZz MjBcbGFuZzEwMzNcaGljaF kxPBjbLqEyUYKxFFuiI2pb WiSzC4KeFPDcQgCaqEDaM4 ggVGhpcyByZXBvcnQgbWF5 JGfnV9s5JVMdmwIecEj2gd KfWkUvAFAdODE7RMgmuOMw VQKpk3EwutyjaPEgNp0wsA OvUNWcvA5lSJHdCUZvZOav OC6yoCz2AQGVhKZvfQTyAo DQLZXiLP10ulYlLVUZcohm x9Z0XYxlYQErj5VcqEEyS5 ptv5VgZCHgu80sJU7gd3M6 y9xvHGA4WM9ba0XhTLYsuM JizUAwMWAtf0Hpusnyv7Pk DAMjbdRkd1OoDIMhugUtqH NhNYVzbbQqsd1fccVxKIDb NNVsJ9DucahpsFpprqDwGD Htrh2gddTjENW2NVUESOKt GWHla2IzcH9xhRNGQGL7gX Yjlk5aziVZgDPzTGAlyq10 HPMqEA4lC2bjAJDbYJUlwy ClfIQqo7DfZMZzkSC2nWNp XP9YCyXDz69qTEJdQNQAqr BkJDOyiJraeQG6ayQ3eK5m IChGREEpLlx+IFRoZSBGRE UdGU2gcpAgn5XgrzJmkKym NELbqIYui8SivIPgh4AnsM xpw5FiiGYxcOKxGL8aUTOn clxwYXIgVVRNQiBMYWJvcm E8o9QpHKOyXXLhMJW4jQju shd0JOVyqC9rSUCqC4kbrk qkVNugIVZwi4OtlI2tsUCF kCRhg1GpuTZjlGWUqXAiJD 9zlnFoZPfMQSbPPKI8rbXe SOVwn3TsFZpaH7giQ06nrQ mipLg4pUV0ZCA2fB3gKwv+ IFxwYXJccGFyIEFwcHJvcH BdEDPcmDvdabXnZ0BvmtSb rU7kjWWazmEnMI9bSC8lJ4 J0zUBsDLCthuKih0zwKFgd dmUgYmVlbiByZXZpZXdlZC Gdd4NxNLlwPBI3HGqralNf bmNsdWRpbmcgSCZFLCBTcG KrjTGkKVN3VSjkrdWldmAg DM8blD3kyDfknP2atXIslJ T8lgdhRUZpRKJntXxnAGUo KY3wxLlnsQ5jXbHaBiJgLW myRF7yASIhY8fgsFFxPSEb NZQpF3fnYpDvfI3esPwsNG xjZjJcZnMyMFxwYXJccGFy XHBsYWluXGYxXGZzMjBcbG FuZzEwMzNcaGljaFxmMVxk KgIdTSHaSUagW5bcOlQrW3 NaZRDeZvTwgHGhL2dhXYan MPL8HFXkMR7thLNrZP72jY Yca3ydCZilcZpfqn6nU79k bOBiPZrquKkvBVRer06qj6 FuZPGzmgXsll3eKGDkcdL0 aA1kLDLezZozQAEpgYQnPA Oxb6AoCIpcnLHpqfVuBSry ZVBhGAUevCSnnuR1wnOcvr QhteHeJJPbiCqiTBNzw3Ur TCSsYOdll2Lzer2gaERwEU OuifOBxTrhsKOzrG7lV7Lg GVGlWZFemv5eNTNcuR0xTR vej8OvwbrhSYTbOJYzACUu wxWmlx4nFOHtjZMXXZ5SWY utrSOnm3LfquWdI1lFENR7 NUQwNjYwMjgxKSBleGNlcH YkNEWjby26LXVqiP9mhKdw XGJjsC7jhP7zrCcbtQ8xYj SvWqWnRVfwQX3tAOYbP8an iLBpHXTjKKMfE2vlVrTfcG 9jaFxmMVxjZjJcZnMyMFxw YXJ9fQ== Embedded Images (test code = [id number]) [facility] [id number] 19:23:05* Test Item Value Reference Range Interpretation Comme nts Case Report (test code = [id number]) Surgical Pathology ?Case: [id number] ? Authorizing Provider: ?Dominic Keita MD ? [...] HPylori ? Final Diagnosis (test code = [id number]) v3wcfHKpIFTlw2mdNOWklT FuZzEwMzNcZnRuYmpcdWMx JUyvcjIlQBmscXhzMIK3FX RhUZ5rtSftoKs5cDxvLNDe qaY0wZIlFAoou1ahYME6c3 facuyvXPBjIVljZc1dpJDt dGywXeLtGLExSXk3oC75YG DwnZ5cbDChZBt8PAWhsAPq oeGnLoHkMGItgSTdfBU7WR QgWP7sziocJFfmLGmxGSCd bfY2BCCkpCPpT7XlYOIoWI 4aalmgFIG7ASifUZLaFEI1 LkWmNGQbb1Gpivn9AkDrrZ FyZFxwbGFpblxmczIwXHBh rsTHHbZLNW6KANWFAFRAW9 sTOTFOYL2IKWDAGclfkMGd ARMaUAQiEDSXDL4UQACoC0 kJMmOgCY7THIJwZUGkvFYa LNStssUBEoJAEV2XTS1CXQ wgQklPUFNZOlxwYXIgICAg FFMzVQaLI8COEIXdUMMUA6 DRNCkDSJkdMu3rGSCVJV1V K7gMA2HEKRYWYQ5HPOoxNW EsWGTxLCGkNR0AIDueWPJS DI3VUODQJGKZESjZJJGPWS DRPMuITECJY3BKDWsMVUKp kzhnKNRoTl8rZ3WINAJTPN wgQklPUFNZOlxwYXIgICAg AIUmVOPZN3NFBrNZTU3TU6 4CLNTQDPGCHO1PEBNDMYcD XK6XTZGSUZMPTSRQB1BszQ FyICAgICAgLSBOTyBFVklE NW6JMJWBSpNXTQeSHLDqAF lTRUFTRVxwYXIgICAgICAt CE7DNRrbYUJJBS2XASHJFa dBTklTTVMgSURFTlRJRklF VHANRZZWBD4TAr6DRVHWNa xwYXJccGFyfXtccnRmMVxz v5QwW2XrNbFmUTnwjkFbDD LxDehsuxlgXLHuSFM3brGt MAWeAFylNMRoVIxlDx3xnB DskTszGsOnXKTuw3pdwoDA IHsxLjNpT631SPIqNWqyj0 ytg8LgECUwsSDlo6P3FVGH vxwwmFh4d8pjByOnCeB8hK TlQKdkM9ycqgIhwPCvW1Cq hLDajRg9lCmrW01wj8U4It ukN5vrENXnOTVuO3TgDH1r FSLoRja6ENK0TKQ9YIDpQW SiE7DbAJ5vAGFcdRYwWOs3 q3uqdEqhTCMoVXQ7c4twWV jonbR1HG3ail1tqAx9b2rm czEgRGVmYXVsdCBQYXJhZ3 UkpKllWv6vhYp5oWsdLroa MCM3Ibu6KO9zuq47qjk9iG rhHJLyieggHvE0GJghEQEk gnowWLq0FClvKBNraBE1LV PgiEPlY1RwJEMqPR0exje6 FQZ8IQedIQSbYqY2UCHjxD KkOAZhxJrnGXslz960SMF9 EuNxEK5xN3Eej1G5uP1ghI HgKGAizDGsSjVyMYCqtd7t uXWsMUzpd4EnGZX8lwQ1dH SyqQUnPGKdLC24Bcsnw9Qg GkdpRYD3DXGeelYoz0Nmn6 evXuXvxfHtC3meM7WdTJNi QDMlFUJdSbCmjrBmk1Dsn0 KtsXBlyCw5r2ihXGGzFMJw wHtib2qaCLT0XDRrC2W2lE Rox4ehGLqoQYXjeVN5qvJ5 SLHlhADmG4UcqC6uOCHfWI 0wqgh2i3fwTAM3WClgNYAh YpT5rlT2QSUcjHPbJHSznI wnMUiej052ZBG7HhMnZWZh c6AiO9TjyIvmJ02ouUcvH7 2lIRRiyIlpiE5cfAapmI7f ZjBcZnMyNFxxbFxwbGFpbl xmMVxmczIwXGxhbmcxMDMz EYzzS7uoJfVgXPZmyLmmCQ ino9EkEGNcCUKkYupjycHj XHBhciBJIGhhdmUgcGVyc2 9uYWxseSByZXZpZXdlZCBh aShue2GbM8jdWT5jN8CxyK JnnyPkxzVwULseIAMwt2q7 iYVlkYdfw9LxtQQnMM39ne PxGSSqBFO7OBJwv1aaRJ70 eqjtDwSuoX25pgZstcPuEE Bwr1ixK4pqxDXit2Clf8Yz orRvFGakh5BdWJ1cnNMjmr byjTQ4XOJmaYIkoiUxzoB9 aGtsWTQkxZ4qqK9nrHuazE 9lLmXzNcRdXEsxRW8rSIIc Y5xjiKRoFEVbTJLrN5jvMv YmqF9elZecRgvqjmL6SBQq cn19 Clinical Information (test code = [id number]) Shivani Schuler is a 47 year old female with IDA1. Gastric polyp x 6 r/o adenoma2.Duodenal Bx, r/o Celiac disease 3. Gastric Bx r/o HPylori Gross Description (test code = [id number]) m8jqpBNdBVEnkDDMYSL5GJ WqKU0thSzmsGx3dYoxTWRz jwL6aXRrVYltk4rlAJN3n1 tdqmAYWdhvXGWuHB9oUYdd CMYnOB0fVkUnKSWySdJuYH BhcGVydzEyMjQwXHBhcGVy hDJ6CRCoGI5uryrdOPhhJW zhTOWrgxO2ZAHltTJiY5Js LVDoWU5sbdihGFZ4IJZNSf zbYj1suTVrzBkmKyPhOjCe YXJzZXQwXGZuaWwgQXJpYW q3lM5BIupsXDZ0GOPACpte RwthuVawk5GkmTJzDCXsYE xcaWQgNTEwMDAgXFxkYiBP UqHeBiM9Tqm6IYE9ShG4ZG n8CPWKKGAyPczhWUH4GhB4 SNe1IIAsFZ8nQLdkkINcMA vmJwvfOPtpO837RJtbROCp F3IkN6XvHFefXrBzFVigKN WcXRVqPNwqNSKsE7QHZDIw TGX8YwOrMYHtACa6QQhsY4 LXHDTePOIeXdA3ZCTrXyX7 JVt4XOCVZk7cLHrnJqNfNA r7BPL0ZXj7XnUuOIRxSbTk BIGvGAOuJBfocYErII1wsR cxLGOhKK4EXHRpMRehHPSb DrDeF6RFE9dTDQ1uOWirmU JjaFxmczIyXHBhciANClxw UHLlHH8ABGBwMFcbXBv3pj BcVIOdInSzYFLjD16av6EF q2FrEO8LXTa1gmLfypdqpS 9zEKRzxqVrAAtUcYXthI2u hhYUANvoHUVyK6RvweVfUZ bcNJUtqs0pyOqvUKwlYyEk bGVkIHdpdGggdGhlIHBhdG vxwaZbO3L0ysIdPZ8hMQKM QMIgoZ7oTETbVUTrd3ZokN HpcJlyU5LetKErMiZry5w4 bGQ0UQDbhhIaWEOlxGUtEJ Uqlp0lMByoQqYiU3M9CKFu MPMdn39pcQL4deOhFjAnnU r3wANvLDA6PU1dzKlhjiCu v8a6pD2fAKFxs0K4IVQxg3 L1VVTvviCrmIBgsRRsUDMq UE0paxGcGH68VPXvQZhcAZ vtNNO1DZB7HCGnuQBew4di zhoqRf8kTIdlKG5qOQjnOL 10HHCwVVmmVWDnB9GtJ9O9 PGfzYHAxKLHolROxfT2zrq KjlyDljSm3EVGsHDH0kYKv kVqjEHPjWtxusYR0GVVwWi McxjWxh5JkeIq5wNBrZIlz OWEawP7wdV5lCYViWTKdsr MBEqhaYRMySGhut3QbCFhs cGljWHNhMzAgDQpcZXBpY0 4sm4JNi1Vbp0uagVjfs4Mh fIRvNQ5tqLAvZM5Qf5gxLE TovXQvLZO7PRbrx4qhDHfb ATZ6BWUrRtMwPKKiHH6VMw JoCYldSTn7NSjcQYs6GOo1 IX0XKnXdUOQoLhh5ElE1Yc TtBFt6NIxuZL1LQOL3NPWc DEUcUAndPPH5JIAbVMw0QB IgXFxzcyAzIFxcZmwgXFxu K21qvOTvREsjBlLqANbrhO rqLDOfSJX9TB9JFIWxGjWd A5PKE5jXLK4lQzmulzZcXQ DgxpLHFlbjMOFjRF3KFJLl YWldIDv2qtLfEBTvCrRrYB DrI84st5RAu3EeBM8BSIu6 neRyyexugQ7qYNTpqfGcb9 IzMFxlcGljWHNiMzAgDQpT iGZtuM3jyzJKCNgxIRQsO3 SddsTkCVswEWTgza0epKvb IGxhYmVsbGVkIHdpdGggdG ptIQYofTppzoWqJ7Q9qxEa YL1rWGZIKGPtuN2hMYMvYI OxEJHbXIYarJ0jQUW5k0Ze wdIeZNVISNWerQbiEP98vK BjZWxpYWMgZGlzZWFzZSBh lpTcfxUll55pxbIrt0GaYQ 9ezOxhCKvAKBsgMoXxHZ8c UZKqrhPws9HhQD7kLCIgjX GtLDNfplsynATiRSo0eRQq OLEgCqQxtPfof3KrMWYbNV rnUV70trTrEC6gDCddTI8n ZSnkZV6eRWRjFPUcHTFjAb SqjMXzWjIsdGZkIjYiR77x VdZIsFQsl4KmU4sbVA7gdY UcBjrdhCDmKNFnpEbsc9Gh pVOtLAXot9ZibPVtAYpmTA 2eYYH6Rl1aqSDaSQIuqdJ1 d6DfCVdaDODyJafpROFmCJ hsq6RpFQQcdGOOk0ZkHU4R XHBhciANClxzYTMwXGVwaW QQf5LzPKPNXeasnApsBuBr zHGsTsH0IVAqmMLxITV1KN 7efYdhSFHoKGl0PDevQDDb P8HeE1GwAOavMsRaDIehZH RpDGPcRRjuCRTlI0RFRDAc YTW4EpUoKPFoPWy8VNdvE8 MQBBVoXCXnTsR2ITS2IjO2 TXo9OBMSWc5jWFptHkTrAF JyQuM1ROx1DrZhIJWiDlRa QMUgBWQuUJwmcAWqBQ4ypB gtDLUzWWGiHVV5GMAyyUOV d4QcDVHrAExvHdFhANKLVM BAHF2UOoGRXGDgRoGwuGUf AH1KFENzggOwVAztuZacfR 1qaAUtB8cyUfBwCoexlApb TmVzdERvYzEgDQpcbHRycG FyXGxpbjBccmluMFxzYjMw UXMttCWQw3HbZNAMHmReDL NpbWVuIEMgaXMgcmVjZWl2 WMLtsF6fWq7zaOZmcH6lzW BnPNhxBXQav3k6eSC3fQPs pXV3pWXccQneAfGjBU9kqY LiNEJXUI84cQEivsKeMRPm gE9oYRTlQMMiNGH3dhzpFC FTGIO9qEZeb7L9UYtlWDD6 mV6lqOkjZaGhM2E0TMWjTZ Glb58oiEN2uePkKkKoLTMf ua2oqO5dSEfpikJffZtecj Lhw2P1ZPThr4M4EOSuctJy hIZjbYQfLIDrMoG3WRThLr H2QGFyEIWvuAOeBHAsOL3f VGhlIHNwZWNpbWVuIGlzIG YtwFRhgpWbHUWgsy63E4rv DMQrpD8xk0xoMwUiEVDuRM XduMWaaDX7VRCrbM6zcT30 goAaslKXNB1lvWUnEC4UKS NiMFxlcGljWHNiMCANClxw KLAvXSazw3HhAEnxxKvtCB EkByIyJNaKxVnyRQABB8tj wMMuANkpRXLWMKzVR9WVCK 2VXWBrzVWVGWX1AD3vCRwj XWThP4KeN8PvpnO6m8kiuS ffj1JvfHQqRG6qmYYaXO2H XHBhcmQgDQp9 Disclaimer (test code = [id number]) s5wviLMlNBKsg4wdLQHloR FuZzEwMzNcZnRuYmpcdWMx PGavuxZqEXtco7KyN7EuAp AwMFxhbnNpXGRlZmxhbmcx IXNgVRT1goVrPJJvQTkdPE DnPCwlXo0iwRKsnHkvWpEk RXIlh6tttxFZQGbyGlYaR9 42ADHmNHysi1bld9BuEERo hLWtl6Y4PSRIgluiaLc5lC tjI48lg7W8KlciH8xoDKJb WEZoI4RxPT8jCLWuNqq6AK W2BQO1PSQrMUIsI7QnJL2b CQDosVNkQTk8s2zonOnsRS AgHWQ5z2cbOGrbnpIwNY9e ns4xcGh4i1snpgZkOZYlHW ZnjLRGUUNdZ0EabKpxFu5u yDb8wZyqAtiwNXZ8Ktd6IG 4xfv38fat3tAjuUCVjqkuf LpN4QVxhCTYzihifXSr8VN jjQCQioLG3YEWzfHDeW4Sg SLSaWB4dndd8FCP3JJnlZS CbRaJ5FIBndULzZWAlmEni JUqsn416RVL9LiZqML6bN8 Vyw2N4mE9ddJXgJWCfrVGk QyWcEWSdjg5qvRJhDLtrm4 OyNHU2jmP3sYGvoAWgUTDo VX43Fwdfm6GnYadwl5NwN0 2rqPR0ISvvl6yhSH9oZuU5 lvTpGOoui0vbdX4lFmW4NH daYZ7qYD3zAHNfyV4davsm XHBnYnJkcmhlYWRccGdicm WbUp8peBhmUIV6RNmlV3dg nY8fYyP8LJrjG4epqE5uDM z3FJiqnPM2YVEidP5uNA5d lagez4zhRUtqUKkzCVBosl A3rbS6KKMqySFaM4FbxN5r EFFuWI8fplczf5joPIZ1UU wzBREhXJV3KcUaSDUby4Wd vab0AqOdl1AiaSNpOLojN1 0ww463WHChxfJcP0zoeUQn xtiaxMJjkmlnVOjutaQ2WF ErizMwk8VeXVRtUYX4SUlj UBvaxVXsSDZyePmji0jiJ5 RscGFyXHBsYWluXGYxXGZz MjBcbGFuZzEwMzNcaGljaF qaWTqdFbDsYBIxPVekE0tm EbKvU6MtSVLeTnCnaFUtY9 ggVGhpcyByZXBvcnQgbWF5 ESdeT1l4IBGfeeCzeDd2wn KrUySsUJRsGKE7HXgryMTy QGWid4WbucdyxUGgLr4wxP KtYMKimG5wMUDfLKVoCVvl FX1jzQc2YEKBtPPtmGGtYk IFSDSjLO61iqKmZVQOnszr n8Y8DFhdMPUnr1HcxYHlU7 imr4IaUIEcu63tEZ7uw6P8 y5giSCE5QF2ey4NiKIEusE KnnNKbWJYof1Kvwkudq6Cd UBXwbsVbm7IyHIXdmdZwnB EdYZCkydAcrh9vklSeRBXk OGEaZ2NmnwjrqMaaejDdFM Ofcc7gkqUxPGY7OBCYEJGz BISaz2QseW8qwHLHWWJ9jF Plke0cdrSVoNCvPAKdra96 GFTuVY3gW2qvGTNsPJVltj WiwUOch5BiWGGavEP2dEDd EU7KDvIPi25hMOZxTVLEmm QjUYFstXaiuQP0gyA3tR5v IChGREEpLlx+IFRoZSBGRE OwLR5qdkCqg8GrutNloVxl ISLflUGuo8TvqDUme6GsgE fpu2SraACafZUsIX4bNGSt clxwYXIgVVRNQiBMYWJvcm Y2y9TgGJDhBKVdTQX2xGlz ykl4XBWffX9qRUQsV4mmbp amYNqpRYXyy8YmzI5nqJYR jWPvd9YgyCBcqCMKwQGhSL 6fbjVuPCzKNFlQWWX3wdJy XODrf2RpMMiiW5sqO80lfW gyoXx1iTO8WVU2oJ1mIdb+ IFxwYXJccGFyIEFwcHJvcH InLTBbeYfnmwDlF0BbgmBc tP9udZUzmnCsIR3tSA2pV0 M7vJWbVGHglmDxh4qbHQpy dmUgYmVlbiByZXZpZXdlZC Rwb3GpQTiyXTB4DEgstkDp bmNsdWRpbmcgSCZFLCBTcG QatLUnWTI5AVbhybNlzlYn MQ2rqK2nySsktE5qrBVlwZ G6ccjeUGYsAQCknQsdDAGm PS5exKtabD1uDbGtFtKgWM ceXB7sQWOjE9xuvVMgIRTh PGNuP4dzUdNcjY5cbOzvXC xjZjJcZnMyMFxwYXJccGFy XHBsYWluXGYxXGZzMjBcbG FuZzEwMzNcaGljaFxmMVxk EzToHYZiWEwoV3ovSaPgQ2 JjTLXbDgCdnTGrR5rhBNhp TZM0DWYwMB4eeNIvTN64cE Rcp1suUWaocGkvqj4bS31n bPOtZGlgcUmdOCYrr11bu1 HlBGRvgvXmbe2aJYUrufN4 wP3hNMGhyDtbQAKajSDxKW Bfa9YoWQdsyQWpchFkFTpy MUXkWUBaaELlyyJ3gbWuzv YujpZxAHSvrObyCJQsb4Kk OLZnVTrfn7Gqvb8hbJUsKD MvaqIKdIofmXSmzR2lS6Hl CVXlCOXbfw5zGKJuaC8aQT loa9VkadbpTGFeDRWwFTNp xfMyyq9bQZEwhZQTMI6CHB ytsKHhf8IudlXcU3cTWGZ8 NUQwNjYwMjgxKSBleGNlcH OmUJQelh98JCZemW5jfUiw TTGqhL7vrV9raNyahN9bQq QkXsLiMNkgAX8lHDZjL9gf rXJdXMZqXUInB5xvBmDrvB 9jaFxmMVxjZjJcZnMyMFxw YXJ9fQ== Embedded Images (test code = [id number]) [facility] [id number] 19:23:05* Test Item Value Reference Range Interpretation Comme nts Case Report (test code = [id number]) Surgical Pathology ?Case: [id number] ? Authorizing Provider: ?Dominic Keita MD ? [...] HPylori ? Final Diagnosis (test code = [id number]) s1janKMnLZTwc4fuJJCigU FuZzEwMzNcZnRuYmpcdWMx IBdokbVhPNkyvUpzMIL0UU VsRA1wkOxnuKp5oYiyVJDk jqA3pIWdEAewl7zhEAQ1y2 cugffmFHBaVBudUk7xdGQj vYxjPrJdZYJnABj0xB96CV JltG6otZAzVHy4EQZlcZMr wtEnZyHsLBGknANfsAU8TE TaAR9ptcitHNosFBtfQFAs xpY7TAMfsQBtI6LsEEIzZY 0doicwDLK1EQfkXYTgCAS8 WnDwZERlj2Rdoqs6EqLstX FyZFxwbGFpblxmczIwXHBh weVZMtOYFA3OBPKESRLGA7 tREDVZUN0SSRONWeyrtFVx BWRsYXAuTDGSVU1YBLMrH7 yFGmRgXT6EERQiHYTriUCg YRBuobRGTjAUQJ3PLA5HGA wgQklPUFNZOlxwYXIgICAg NUSlJEzFQ8ZIVPRtSEJGQ9 ZAFDvWKTyjFb9nDQVJYG4G F7sFH7AVGRFUVM6PRNjwUH EgNNSmCIUeGX0UGTiiOHHE UE4GRASBRWVHMNpSBCOAVH DABDbFDJHSO2QLEUjVEHVg maniWTNvKu0qM1LZJCWSUO wgQklPUFNZOlxwYXIgICAg DRXrEUNJJ7BIVdTSVT3AZ5 3TOQVJPNCLGN5DHJHTRUfE OD4IUNQTIXBMLLRMO2ZmiE FyICAgICAgLSBOTyBFVklE XB5XOOOSSeLFBEkKJEXqMK lTRUFTRVxwYXIgICAgICAt XS7SWKirVTKIYC3RSWSJKd dBTklTTVMgSURFTlRJRklF UGGTLHQDTW1BNh6VXPBHUt xwYXJccGFyfXtccnRmMVxz u0EoK4IdDtLdKDhhroJbEX BuPkzmrcavNLJtHKT6icVn YZYbTGfjQESpVNcpHl7agR DoyGfuSgYlWYIyb6sacdWD VGsrXxEvD113WWDnNSmic9 edt6HlVPAotGAme8A1WLOD lrwpqLx9g4zuWxMbZeY4xJ RgYJefO3famlCghOJwQ7Mg lJGffNw3zLktM89ct2D2Kw clS5ipUHNbLWYhA2WxXA1m MIXrLtw5JHF5CVR4HHRnGA DsT2WvBO8eMDObjYYhSKc6 m0eluKvvTLDlOSJ1i8vsUI nsodJ2HZ6qby6otJm5e1ga czEgRGVmYXVsdCBQYXJhZ3 HiqKrqQc2pgOg1iQflIcym YWU4Urb5YA5myk42hnq6kU fqJCQwaalvVfY8RDluJMVw rdafABf2BShxYATzcNV5MZ MzuQErG5HkJEEfCA5uxod6 EVS3DOnkXPUwBkA3WRZqrI YpKOFqtOcyDYztj794ZTP5 ZlRsDU6qR9Fpj7Q3dJ0svV VhIJZmoAQgFkXwDVIvze0o iXDnACwxn4WeVDW9odH1pI DucNFnOUHdTZ56Jhqmy1Dh TihuKCS4VKVggnHnb0Wzz9 iqVxVphwHtZ0ayP4PzGHEh MOQwJTOoXlAnlsTnv3Xrz5 PxpMBdoCb9i1guRNJiVJHx mNfly1xpWXO8QXLbV3W6gJ Cyx6ajENknULHvdTK5pfF9 IOVdbAAfW1JofU3aCEIjBW 8wqrw6j8vwMOA4KVlaWSLv MmU9spJ6AGAyoEUqFHQucX mdZQfbq643BVT9OuKaBTZj v9OcR9EgvFhxN72vwScuL8 4rQFQtvUhgoZ9utCsooL7m ZjBcZnMyNFxxbFxwbGFpbl xmMVxmczIwXGxhbmcxMDMz UDaaG6waKaKxFEEapWztMV dmi6TtOFUgSRZhLsxtdyBh XHBhciBJIGhhdmUgcGVyc2 9uYWxseSByZXZpZXdlZCBh vEkuo8CqU5jaKP4fE2VjvA NnslStdaXeFArqBBXxn0w5 jVLhqRnxg1DhhYQyHJ76wb OlGQRgDJY0AEEhz0jbNN33 kxzzFgKmeI68sdXdveAkEV Obm5eeE2mnuWUid4Ksv5Xd awPwRSoma6UfGA9wwVNqxd xliAQ6AQMqbCDvboMktcP8 gHmzWTTdkR9myI4wkTseeJ 4vMgXmPaGjDVqyRA6qCRFw N8cimDMcATKsAUHfZ8dgDe KvgB4nwNyaDqvfxrV1UHQu cn19 Clinical Information (test code = [id number]) Shivani Schuler is a 47 year old female with IDA1. Gastric polyp x 6 r/o adenoma2.Duodenal Bx, r/o Celiac disease 3. Gastric Bx r/o HPylori Gross Description (test code = [id number]) u2vkiHKtMXYytVGQDAQ6KK HtFK0uyWaeqJx3lQumSDRo uuU6aBYyYImlm4vqNHN2t2 ddmnIFBhnaRRJoXZ5nGVxc HSXyCM1nYbPtPSThQxMxXJ BhcGVydzEyMjQwXHBhcGVy uLM3JGCyAF7auhjcPCmiOK woVELsxaE6INOveUYeY0Gp NAOyCL9wtjihUCV5COJOAn ydQx1itOXcbRzaYxYsOvHb YXJzZXQwXGZuaWwgQXJpYW d3cX1RZskhGVO1ELIWKien AgrarTuzw9YauIAkTXDeJJ xcaWQgNTEwMDAgXFxkYiBP CnXuIpZ7Kjw0KKF7FyP0KV u8CILHYMLiYtdrFTL6CrQ5 RAw5XBJoNF8gGMekkIGgNX koUdnsFMhbO342CTgzYOAf K9DiF9VsPQgdYmErSDmyUN WpUWVxESqsMHJvQ5RCSSLi YVQ9HyLzKSAcLGt6HZosA1 NIKSRhOHGvRxW8PQUxPuM8 AYk9VKOJXw6lHJwcVbEwTP w8OUL5YHa1NdBhXIOxOqPf FIEtDAZaYQvjhZUgIH9tdR hePNLpVQ9KAYCwILmfIPLb YaDvS5IFJ7bYVH1zVAqjzN JjaFxmczIyXHBhciANClxw STVvLE4TUXGrSRtnDBp0nd VyEFEmUcXaDOMpW96hs5QU u9WePB0HPPj7riAajrootW 2fGGWoqxZtOQwCoFDhiZ2x nbNAJUonUGWjN5VufuOrXG wuQHTtox6twIzhDXvlFeFl bGVkIHdpdGggdGhlIHBhdG qgnkPoH1V1vpSuQX7fDUHJ JAIpzB7hGKFyCTFon4RpeD WmiZujD8VhhLTvLcYff2j4 nKO3LFLtekKcNIEabHMkQW Xnko3eROesUvYuB8F2UMNt LCHzu10uiCO5gnCiBmWbqJ e5iTOkBTD2YV3oqFaysnZu t4j8xK0wCVDqa3H0ZYUwq0 I3JZGddlOdaOGneUYtQFIo EX6gfxOtXD61CQKeOQxiYO wnLBZ8FMZ0DQIdmEVzv4an wbbwGd1lNHmgFU9cCIhkIA 70HZCqUXceEYWjC7NfH3S9 BXxnNDZeVLOabHAafL7eac ShcgOfpKr9IASzQZH7cQYu xLqjSWBrFrkfbIW9PLDrUu NyzjHzu0LcfCk3xQVoLIgo HEMjlS7naE9aDAJfVZCrdd SUDknbRJKaPCegk2KdXRbd cGljWHNhMzAgDQpcZXBpY0 0ph9AUn6Zjs5xtvBiem3Eg zEQtIY9vsNUpYT2Ae8ruIN ChyQLkZAF8JKbor8zcZJen WTC0WLUcThPdABDkKJ9IOc ErTSifTNt2CPkvWVm3SYs4 RU6GQsFgHZRfYbo2NwS3Ct EpFRx1JRjhDK2XUAT6XUBm KCLpBXegYLB9COFbTAo1UN IgXFxzcyAzIFxcZmwgXFxu L97jnNUhJHmgKgEmWYzqjK guOZLdBCT2TD2XEFUvHwPb O2KXV6uRUB4fXzielrFsSQ NimrIBFlmdLKUbYF6BQQWi EJicUJv3liGdLJCaOyUgVW AxQ32ud0RDq1ZqJM8JTBl3 lrWjtyhahB8kEERzabDet9 IzMFxlcGljWHNiMzAgDQpT iNWbuN1nfdOJYFtvGCWnD7 BfyvLyFQhkFMPveq9iqRou IGxhYmVsbGVkIHdpdGggdG ljENRgjVyqavEbN7J6rnTh DL1gUPZOXEOazZ2fZNTvHO UbRRAkGYFymS0pIKS9e8Bp djIqSFAPDDOmzLgxLN64oA BjZWxpYWMgZGlzZWFzZSBh tnAxaeZot57bhjNmc2KpTP 0qzBuwUJzWKOkeVoOiXJ8n ZWBqiwTta8BuUA9xAYNhrL ZnQAHainkfiBUvIGg2uNUj SIGyWvThvHfar3BxRDOzKH voSD64zeGoUY7dBUixKC5f DYnlSW2fDGUtFWCxLNUkVt NjjVJqZzAbePGsXqZqH90l FjWLySFgn1AzF3ekQX3mtV KfUooguQFnEEYcyWvru4Hj lRFvDOPju9UlfELwWIluHN 0dSXV7Wf9glMNrFLUnpeZ1 s3UlEQrjYFFdVnfvUOFvMV afq0QfDKNewPDSi5MoBF6A XHBhciANClxzYTMwXGVwaW EGs2WrKNMXXvaocCszWpXx bUZaIfJ8XZWinDGzAWM7IH 2bpLipRCXpRLr6WHylUAEy T0OjJ6KgOUvfIdBpDRgiOE CfSUWaNNcrNJUgD8KFAJXk QLO4NuXuEEHmRYw6ILoaX2 RJAHDpAXEyGfY2RYZ9KeP6 YZo5QEPZKy3cWAtsQuShDV ClXkH3XDq7YgHcMRKdPbNw MWEgFVCwBWbntKDiXW1moO hfPHOjOOErPBD4ATFncHGR i6MgXVYcOWwvPtPtCGPCJF BFEX2RJpESFMPpSaPmyKOy RA0OKUZukcXdMAggcCpjtN 0deETeQ2lpVbSrGqpqfLwy TmVzdERvYzEgDQpcbHRycG FyXGxpbjBccmluMFxzYjMw MYIidTQMh2HlNPKAMrScUO NpbWVuIEMgaXMgcmVjZWl2 AJEbkK7oWi7cxEUquH2urC CiHHuuUOWaz7o0zJO1xBDx wHC9qFYoxVjhFuDnER6mcR VzKGMIGI99xDBazsWxOVTb qF4iPHIaFLOcFER7lukrRG UXRQY2iRInv6N7CCfnIMC5 iU8pcAttYuTsM2C3FOJxZI Xhl30vfUQ0wgBdDdAaFFVm re7saL4fAFdzgeKuiFvphs Ruz8N5OLImt9W6ZBCszvEp eHBaaLDvCGZbBuM9IRXgYd U2LFPmJFPqaIZfQHLrGR4j VGhlIHNwZWNpbWVuIGlzIG UvsBZojtHjUHAzac56I3rs JKCadE1jb0kjWkSpPGBsUY YekDRedPX4JFYphN3wgN72 nfFsanMJBP8ssFPjXV1QAC NiMFxlcGljWHNiMCANClxw UBEqUKnxe3PrYZrlsAilFS WdPzYyTTdXtHeyEFMDV8ds vNBlMProIAIGKTwZQ8WXYJ 3ZVMJlkBSKQZA2ZL7zWRrh ZGNpD1GzX2MzesW2m6lesH ukv0OckKUbSQ1ilULuNL2N XHBhcmQgDQp9 Disclaimer (test code = [id number]) j8ilfPHaFWIlu6vvEKRiyN FuZzEwMzNcZnRuYmpcdWMx YHpzhzEtXGfdm2MdZ8LiGc AwMFxhbnNpXGRlZmxhbmcx JQKoURW1nqBeQMYzITybSZ QuDDwrKp4btNMfzGbnSeMo FINuy3tqubINXGxdVyQsT3 76EWVoUYoej0eze7UqZXRh cDXlp3R7QEMZuqtpoWp3iQ bwZ68wf0U7PtxsU5yvZHPp ORHkI7LhPV8jRDSpAwg8YO Y4QEE0PASjEXGjR7PtMC7i UGHjjHQxRXd3q0xzaHweGQ VtWMP6g7rqOEzbakSxGV9s qe2buKn4o5zhvxSfOBSfMH AznEHJDVNoC7RrbIlcRs9k iQf5vSmyKxunLDN6Qgv9RU 0tdr86pom5iZyyUNDswsky AcC8EYltWQDyozbkPYl3ON lvXTTolLQ6NXOfiTJlD4Nk XFZbCD9emsx8HET3SGveZI ApDiX6QJCzaQFjUCPnkLee SArnd987ZPD5KbMhYN1lD3 Hgw1F9jK7jcIUwXANbvZNa GxKpPNWstr5aiMUfOKuit3 ZkTSQ7baB5eMUveNLpQTUh YP85Talas1RlXwucm8YpL8 3ggOZ7TPxcf8luRU2qZwV9 lyKnUCses1trmB7sDqB1VH plEL3bTQ3vYSSuvD6dovft XHBnYnJkcmhlYWRccGdicm NjDh5oqMmfZNW7XMqbT9hb aC0eQwC2JOyuC4cujN0bAD n0CAkkbVL4EBAxvG0wTK4n qhani3llNMbwWTvgMURlqg G9byS0BZVdcIFeR9DytY1w VKNdKA0clwdjc9yeRXT5YO koCSKqCGT5JrUwVWZcd4Cu lhh9HyDef6OitTYwTQiuM5 2dr374ACQmnsGeV3kwoTJt fpeoeEVnglegMVcypuN6LP CwlyPcg9ZdOXBaVLP5LXnv RQbimAEjOKXhbGxsh3nqJ5 RscGFyXHBsYWluXGYxXGZz MjBcbGFuZzEwMzNcaGljaF euWUxjAgZdHPWwVCqbB8fr ZnXyT2ZmSBNmHiUjcFByL1 ggVGhpcyByZXBvcnQgbWF5 JIdaZ2m4OIQwnlAbhWs5bn MkTwWdBPYkDEG4PSbilEJo EIIzl7KoapvjpHSlYx7fkW ZhLIAirS0kHRTdEGUwBOsq NB3jhRx3QWNAeNUbaUFzOb TPUUBzAG76hoOrTUJRtbjk j9C5COxfSVXxn2FqnDSuI0 icq6QlYRAfi00pBO7fk3D7 p6vfAQZ6OZ7tx6YjQIEvfG TpyJOyJVMgm9Pcherac4Lm NOIasoNri2WwCSPdebOqzD VxZLNkhuObad2ikoApEBMg CUHzV2IckifkjEohhwRmVO Kmog7axsFcJBW6OHYWZQMk QRJzs5NrfJ6xtFLNZKX4vY Ioau5eeaMMhWHqMFPjpk24 QOYaOS4tA6ygFUWyKRTtmh FfrDGbh7GeGELmySD1nXSr PS5GQgVAm54eKUFqJKCKrp ZtTLYcnTboyVB3ynT1kO7a IChGREEpLlx+IFRoZSBGRE JyTA0yfsGfm9TtvsHgoVzk JBRjdRAvy7TibKLzn8EthK mrh6QdtITziJCwDW5gVHFp clxwYXIgVVRNQiBMYWJvcm V1v0BhNCNrVUFkYJM4bSqw edn5WBOrcD8zNHUlJ2padz fuKDdgXQMgq2IopA2jbLHW bJBzk4BkwVVugLJCkEVmJH 8ryfGqBEiIOMuWWGN9jzVq KEZgb5FrMQkuX2krZ16tzZ lrfBc1rOE4FTO4bY1kYyn+ IFxwYXJccGFyIEFwcHJvcH JmPWVvnWwuubPrS6VirrKn wZ6vtFTjyqBkWW3bJV4dG5 L2nAOtJVHmqlZus8bwDCgs dmUgYmVlbiByZXZpZXdlZC Ohw2DyIOnfMTJ0GXsiqiOq bmNsdWRpbmcgSCZFLCBTcG AetQHhTKZ8SPozfoQqonHn TK9xfM3txZrrvN5phTGwsI X8agoaZMBhZKUwkMlwTTNu DS3vmSmsuO7pWtGqBrAaIM izUY5mJYKzX4qyyOCwWJEi GQLsW9xmWtIdtA6msVfwEY xjZjJcZnMyMFxwYXJccGFy XHBsYWluXGYxXGZzMjBcbG FuZzEwMzNcaGljaFxmMVxk PqJdOJMyLFcwL8mpAdHjQ6 DeTVRsEiSyqWTrA0xoTJpp VGV9WIIpEX6lqWWaDQ75lR Idy6mrMIwleYidos2yF46m dZAvQOxkxOmbCQFli08ju1 WkAILmpiThbi7lJDJqbgD1 rX3uKPLxyRazYWCdkKShZC Lar7MxAQlenKGrdyVqUPxl MUVqWBPhqYQklpF4ytFtwu UetwScKQZvwCstGNMty6Yz GXAyTHxwy1Dhcu4zxZGpNW CnqrBNyTlwaDPweR5pX6Bs FCMpWEIfbk0dNXLqeI5oLV xgd9FmrjbhNIQmPOTuGXUl hyAahx4nRJFkbLTCKR5KTW ediFVos7JvorYkQ8eFRYL0 NUQwNjYwMjgxKSBleGNlcH UgJOXzfz99IKTwvD0qnUjq GNGpzL4qlX2wrDxkwR0jMg MvDtZgUOvxFJ1rJIYzK3sd tRNbUEDpJOHyR5loFzCgfU 9jaFxmMVxjZjJcZnMyMFxw YXJ9fQ== Embedded Images (test code = [id number]) [facility] [id number] 19:23:05* Test Item Value Reference Range Interpretation Comme nts Case Report (test code = [id number]) Surgical Pathology ?Case: [id number] ? Authorizing Provider: ?Dominic Keita MD ? [...] HPylori ? Final Diagnosis (test code = [id number]) q4zixMAnIGLrf1qeBYAuyQ FuZzEwMzNcZnRuYmpcdWMx XMdgxbDuYKprzKxdBQS9CH OmGF0uzYyegBo1vMviIZJe lhP2iEZrJYhsp9ycNVG3e3 nhmowfPVMtWHedIt3zdXBr jVvbPeVbBLFrBKx9vK43BD UjqD5mlTFeTYq1NHOvdOVw vkAjCeWrKSKvoPAkqHO0EA FsFY9emwunHRvlTTgnBOUx mwA8BEMsdIOzU6ZzHOSjSM 2jtzhnPGT1XWujFSZgPQZ5 TtVwACFyz2Stoqs6VrOmoW FyZFxwbGFpblxmczIwXHBh cdNQNaUQAX2HDQXQKWSND1 iOGVIJWQ8CHOPHMrgycFJt PSPjFUBlHEVYFY3VVSFvH6 rDQrXvIS2BZBYxRGCsuUPn GXXykuCWEdOVSR3DPO2ORO wgQklPUFNZOlxwYXIgICAg FDKqWWyFE9RTUZVgLVDBC4 QFFSoINYhhRa2yVPKTCK9A X4vGO9MRQMAVFZ5YVKkiAD PaJQZpTFKfOH0PLXmuNTPH DS4YCMTWEZHVHZnLHEKFGW JIEXuXYOBSV4RIBYjOBYVj ftbgYWStDo5aV5FFMVBWEN wgQklPUFNZOlxwYXIgICAg PLSpOGYCG7NDUbBQIV7UF2 5JWZEDXBABZK0TVRUGFPbG LB2JENOQULVPEZAUI0JulW FyICAgICAgLSBOTyBFVklE QJ4FGRWAFxZTJCfHGOVeIN lTRUFTRVxwYXIgICAgICAt PS8PMRukCHKYUD9AEXCKGb dBTklTTVMgSURFTlRJRklF PNJLOJTIEO3LLo8AJGHDCw xwYXJccGFyfXtccnRmMVxz z8NbF0FwSiPlVQejeiVxAL ApVvxvcamuWMYfEEN0rgTy MFWcYBlmXQUbAVyyLu0fyR FcmVgiOzHuQBTkw9fzrsMH JKftFjYqX386TGJpJOkat6 pwj1AcAFOiiFHkg5Y2UWLC dytkjMc7n6kcIlGuKtB1vO TwPEomU0zieyEmwIXgK6Ev sPEoxEu1eEydQ44tu6R5Ai lvY5dkPVYqGDErV9EfIF2e JYHxTbu6AES4LEX9YWJnIU EaA6WbMP4aBNPmdYIoXXd1 t6oogKaoORZtLEG6e3xbRH rsqqA2AG9mql2rxZi1u6rb czEgRGVmYXVsdCBQYXJhZ3 YplKatEj5zcJr4cVpfUcck LKH3Qgg5UR6uhe80ebo7mE gyZKDqfxhcExG6ZDwvCMCj iqsxEAv0SUflIYErcGL7VH ZelZWcJ5AnEZOnRC0xrud7 CDQ6QRwfOBHaCsJ5JTSgfF YvCXMlkWabDKupe292YHD7 KnYkAK4yT5Cwu7X4tV8grI YuRZXdbSBmNrZtXMQhlo1e cOHjLFeos5YcUHZ5yeF8iM JivKXoKTIrDE61Thqeb3Gj HcnxYNH0WSLjxfVqd6Jbe1 niEtEfztWpX8byY5HaPLQo CUZbYQEkSxZkssOgi3Efk0 EduXAtgEu3p7zqOJXpDJUw gBiff4miZRO3AWPjU5Z9dR Don6zpSOgsPRHmtEG1ntS6 ZUXhhURmN5ZioJ4wUXZbCM 7wgli7h7drYUI2CFdsECEv HyZ6gkX1OODacFJdQBLezM bkHBuwy895EXH2UcDbBMRh u0TaT8KzoIshN29ggFrvO4 9lSIAxqEtniP8woVcvaJ3r ZjBcZnMyNFxxbFxwbGFpbl xmMVxmczIwXGxhbmcxMDMz HFreP3hiTsGuFFIptIrkZR aet8WcYBHxFZDwEtpzhdRs XHBhciBJIGhhdmUgcGVyc2 9uYWxseSByZXZpZXdlZCBh qLepz1ObZ1knHX0lU6WofH QuymDeaeYnELwrEGZcp7z2 sAXzqUbse6GaiCAuJE91gs AqVHAhHER8XWMwe4hdBI71 pbilDmTunJ59seRwafDiSN Avg2zwQ9npyMQcr6Snx6Zd alYpRBsya9YdBO8spZAvpp xnaTP6IVNwvVThxcLcssC6 aUirRWSyzD1stV1esScnoL 5qPvCqYhMqWVltGL6fGOOe V3fqfVDjZVLaSDZfJ9azZo DtrD1pcAifIycbtdD9BJIk cn19 Clinical Information (test code = [id number]) Shivani Schuler is a 47 year old female with IDA1. Gastric polyp x 6 r/o adenoma2.Duodenal Bx, r/o Celiac disease 3. Gastric Bx r/o HPylori Gross Description (test code = [id number]) q1iagWLuDDCnkYXNGZV8TC RlNL2enRwraUz7zJqbRWGg xhG9eACeZLwqf8gpRDA3x5 epdsDZQfcfBLLbNU5tCFmi LMCpMS3uCpTtFJRqEuDsAZ BhcGVydzEyMjQwXHBhcGVy vUO1LZUhWQ6pooooMJzzDF wiGNAdnoE4WUFeaGVoW6Uv QOIoZY0rzzhfOJX6PPZGNn djIz8vsMAbnOepKxWzDqRm YXJzZXQwXGZuaWwgQXJpYW j4lC6LHzetREQ2EHCVCqjw GtjguKeug2WwkMAaZYWsXE xcaWQgNTEwMDAgXFxkYiBP PqUgQyT0Ayj4EGU8ZyT9ZM b3UJJMLVQwCzrcZAE6SjO7 VOk8ADGuHT5eUIrzaVRpGS fwZusmWEgzA120HKsbMEOm H2NyC1PpPMeaEwBpRYxbGA NuDXMeGKcrKJPqW2INUFJv DLG5WyNdNGGuGPq6RTgfY6 EZLPZrUTAiZpA6LEAcNvQ6 RAb0GGALYb9bJGijNuZaCO b1MIT7OOw0YoGbAYHmOmOj CMViNQGcBTmagRCaOK0foM wvXENdQW1MNWVzISdeKIEt EjYcE7LEI0kJZK9jMJencN JjaFxmczIyXHBhciANClxw XVRuRR9SJQOyFTifAQi0oy HiQUOuVvBmUPMyW44yz6RZ d9XfPC2ILPh5pgNhssvziF 1yTQArycTuJYfEfKXxnM0n vdSDRVvqHYRqR9AgnyJkAV beOENpik7dtIqkRNsvKhXk bGVkIHdpdGggdGhlIHBhdG ekicGuM8E9qoMvNB5fUJUL CQTndV4pNASvWKCdo8LikX EjyFckC3ZxjSJjHxVnu6a8 zAO4WKLfadImGQKiqERsDP Iows5sTYkjCzNuR7O9KSYp QRBhq51qpMW1orKgMiApyV k5dYMjORR7DZ4ukQaqvqHo e9o1sM3bHWBdr3B2UIMke2 Y5GYWudgVeiAFcfAVpOASm PD9jrgHyGE32YBCgROguHF vuSAP6BCD1MSZilLNau5sx cfldJn7lKKiuJD7dIZogFB 91ZKOrQLodKGGqU9PaK2M3 RJgnVICcABNntVAhpX3xky KntkYouHs0JRNaGTW4nDXu uDpgSHBzDaupvTY6LKWkAc ItawYqy0CvfCh3qBXlUSex HRQozN4mzT0gVIOoVVAnac BZZktnOAWxVYirq0SgFJic cGljWHNhMzAgDQpcZXBpY0 4gv1FVe0Vto6oxxOaph8Eq oSCgSU4eyLHeVA4Sw6ffTT VseVWzUJF0YZvsw1zgAWgc MTQ3HKAtPqClKTIqRI0AOv FhTHkhECb3HBecDIo2PNi5 PE2SGfSlGNRaXdi9AhI7Jj XbBYc4CXrqHT7EPXX4NXYy TSRtILzvHKM5RGRuKMf9RW IgXFxzcyAzIFxcZmwgXFxu B59nrLThQAbiRkHyNWdbrS xvGIFnRCL6NF7GPYGsTzDw Y4NYB6hYER3aXxfjugMlAV IfevJQStywZLIlUS9TDJMd ACvjWVr8ceAwEQLcNcGvWJ CmE60la5AGc9YgVH6WRCu8 uuTuobgplS6bQPRoptDma3 IzMFxlcGljWHNiMzAgDQpT wSHzuN8olvYKKWcxQTIdG3 ItxcGyNAfaEYVynn0beZte IGxhYmVsbGVkIHdpdGggdG qmASBlrWvauyZrC0A7gcNa MB9dPZERTNEzeY2jUAUoKA TdJHBzVTJcaW7wCCV1w1Ob srNnGDBBYSWmaLanTK33iM BjZWxpYWMgZGlzZWFzZSBh bfEziiQyw43yysNhw6HzPN 5vzTpqSGqNMTorAqGyVE3k ELRqrcDxk7JnYG9mRVTscS EeLBJlaujtcZDjZHu0uQIl BFIuQjQrkGmtk0ZzJIPkJB rzFI69wxPwDQ8nLFnpAL2d AIxvXG3uGEEuZQAnFHSuUj LpnBVqVlNlvNUuDwHzQ38f RqRLmEGor7XnX3krQL3psO NlCydojZBlSEDchGhem3Cw zKRqHTUum7YycLHvULwbZD 4aSUQ7Qg7gvWLwNYAjbhP8 l6YrHFclWXHkQfehDDXuOJ wcr5YlRORygXEHr1RbAQ2U XHBhciANClxzYTMwXGVwaW YIc3BkNGRDIkhncBphPtVh aOLoHxD4FJJsiTEpVPH4QY 2guXriSDMfGYj9ZQeqDMRi A3XlK9QkDQfxVtXwVVncPJ IyZZXaHVkzJZVkT6LJVNFt BMO4YmOhDIIxZCa1BGuxN1 SGPCUrWPXbCxY1GKL0IyE6 RKv1GBDXRh9sWExoYxJkXU SmUsH9LWm3BaAeQYRdDhEs KZMqODHsFAfatLKnOO8rfC evFNFhKBHjPWO9SMRauVXI s8FkCSGmMXljHcWwXILNIK MWXQ6BLoUYBWXgNdTdtQKf JP2EIPXohzPdPFxtlUizyR 8wpZMnQ0ubYdYaGayshSrl TmVzdERvYzEgDQpcbHRycG FyXGxpbjBccmluMFxzYjMw DMRmfLLMl1MsAMEFBbTxDK NpbWVuIEMgaXMgcmVjZWl2 PLRpiZ3fTl3izXPzfX5ikN XsAUccYHNkz1t6aQK8eLEe zWF8vDHlgIroLpToPK3cgC NiTAFOFW04vKRsmkTeJWKg iP4kEOCbAVPoYGX1tokbYB PTZBU0lTAqw1R4ZAryBMT6 kQ0gmIfdTxMfC5I5DRFhRI Wnd18mwXK2pyXdQmNeQYJc bu0zoQ7pJMveppZwsOxrno Wdf0O7SKIvf3F0NLWxmwEt wWObiIXcWGHyOuY0CZBzJd Z4TIMpSWNjbLElAXIuIW0n VGhlIHNwZWNpbWVuIGlzIG WyvEMzdqHhXUJfkr55O0ti AQSuzZ2ze1krGfWkKENjCG PzwFIwtWL0CIEnbC9ceG49 hkQazhTBIN7ziXYsAP7BIM NiMFxlcGljWHNiMCANClxw LJWrEYfmr6QuWShnaTfqIS VzNcExJErEnOceDUMRE9yu zHFqDJgjQRSQZLwIU8UMYB 9WFMFzsEGGLLF5EA6hAIrm FWYfI8MgP5RcieK2n5myoX ajm9QjdFGvSA8diKXqLG4U XHBhcmQgDQp9 Disclaimer (test code = [id number]) q3aymSPaHJCnb4fxXOIteA FuZzEwMzNcZnRuYmpcdWMx ZCifftCtGHail2HrY5KvPr AwMFxhbnNpXGRlZmxhbmcx LQDcGFM5juVtGMOuKUreSE MfMIdtDb0wcZOdpOgeChPd QXLqs6bzraMRWOjzPzLeT5 28ECDbZXasf3rgx4SvLKEk oWXos2D2HETEkwkovOf5lG nfK49yn1U9EoelO4umJYTt KMTcY5AhYS5eHILxZzp1XA J0PLU1VJJuPAHeJ2JmLF8c ALQjdUAvEGe9b5zccHovSJ HaVCH1l6cpYPkajdCdGQ6f cm1pbNt5o4ploqVrSGJjRH GqiIIJGEUhR8HndJraQr2y lEg9eAwmBidlZOP6Mjp8HI 4bgh00rut3mVvwLAQepbpw VhD9VTvyHCRadadtGCs6WI kgYALbaOC0MCUtjGGpD4Yu DZHpTX3uedi4OUO8QNdpOV CcPhE7VHMpyRIyTKRfiLik FFhdd148IBB8BaAjFM1fI2 Pxs9V2tL5kgQRcCTGniHNx QdSrIPKqzr1cbRAnXXzza8 GjWMG3cqX8lDGagVLbGWRo CT28Wvuap2SiYqqvb9AeK5 8wrHQ3VGbko6xuSO6jQcM0 lgQjSQazf9niiN8xMiB4EL auQJ7aEP2yZFJxsQ9sqsld XHBnYnJkcmhlYWRccGdicm OlTl0ykQiyAJE0PJohZ2rk bY5eKgU9MLisE6hqoV0jOR a8VSpocAX1XHPrjP6cWK3d uytsb5vvWZcyTXnfXLLgvr H1bwS7FIQzvDEoP1UhoL1c HYToOQ8bonqrg2baXPE0HB fuLRVoSNH5NaIwXPTcy5Re qkt8DhNsl7SucUNhMLilV0 2ym076IUQrfcYhY3mypEQn vbmqeNGibincQVtuiyO4SP UfbiAeh8VtLTRxNGA4XJyg SGjzcOHmTYNryDqrr4jxS9 RscGFyXHBsYWluXGYxXGZz MjBcbGFuZzEwMzNcaGljaF nrRQmnMiAwYWMzIDbvB2kv IdFnW9MqTVUtHgThaMRaC4 ggVGhpcyByZXBvcnQgbWF5 PBhfI3a2EMMsbbCofWm9cn PbVuHnRFFmWNC7CSaobQAq TRMaf5ZmddyncOIeBr9ofB AzPOZatZ7aZJXtLNKcXVkc HL3pgHa7IGVNtBHuyOGtCh MFGRXoHY36npFmSCUWxifk e5X7DJdeTQVvl0RbpLMkR9 tzu1SdHGCxm09yRR2ze2L3 c9cjOBV0JW7ou9NlBHTygV UpdOAvRSGjb4Pbtpatz6Sb IEHpkeZwd7BxGDCtezFfeZ HqUGTveyEwut2vmrFlRWFb OEYtT0XypyolgQkxrvIzDC Mggb5mhnNgWZQ8XVECZXOf ZJIzc0AvjP9ghTISYIJ5vU Sufy5pkaTBfKWkQQCdyk07 HDFjHF7yZ7iaVJIzEWFxgo OpiYGlg5VqYHNmfUY6bMLx LF1EJwNIk20vDASkQSKSiz AlSTDduArajBI0uwV5rK5u IChGREEpLlx+IFRoZSBGRE XvGJ2dsuLkl4UlvtCkvMdx URNjhNBlu4WwmRFuk7PscZ hwe7OqhNXyhQJeRC8mKAUu clxwYXIgVVRNQiBMYWJvcm G7a8LrUVJhTSYsDTW1bUbn xud7ZLPjvI6bXZShB7nywu iiKXguIWYrg2WeuS1usNHX bMLeb5EbgRXelESAmNWwOT 9uzmXzTAsVHYvGLNF7amOs VEFal2KrTIhjF0soJ44cuZ furEs3oKK6PXV6qE6bKmb+ IFxwYXJccGFyIEFwcHJvcH HjYADrkLxxdeJzP5FiaaBo iQ0tqKAxiwLqZA7qMO7qY5 D0cBKbALZdjtUze2llOWxi dmUgYmVlbiByZXZpZXdlZC Qqt6UrPGcpJQY0NSjsrvXf bmNsdWRpbmcgSCZFLCBTcG TupLCtXII6KRwrkuYuukIb AF5doF1zfFqydH4ppNIklC D0cbuxFATaMRUssWyoTTBc DV9iqLmhqK5hTdOnMdOiNH xyMT7uTDEyL8xfgZCbCVAo RPIxR1zhTgAotX7pqZkfLF xjZjJcZnMyMFxwYXJccGFy XHBsYWluXGYxXGZzMjBcbG FuZzEwMzNcaGljaFxmMVxk KkLoMYJwXOqsC4omNpMcS4 NmVLBfWrMlmLPtA4rvVNfn DVX4IHAzEM8trPAoJX13cG Zvj7udEIgphJcqli5iX22e pCMaPOxhxAupNFUbb50qm4 NfAAJcqcKilc5nBTOuwoW6 dF7uTTKjdGthDZJdtIZtBH Pop6NiISyorVLejlZqOAyr NSAuXAYzaWVfwvY6hhTshc IvatZoYTVhhBmpNZRyf3Ct OCXsUEwvu5Yhhb5nmCOuEH MmzbLRjZmzvVLhnX1kT9Ti SXYkEGDbvz4iQOLkeC9xHC mtw5ZpmkvuRIPxNQNwOYTh kdEcay0yFLMdiROTCP6PCX pthSLqj7NobbBjG3mENFD0 NUQwNjYwMjgxKSBleGNlcH GuEHTqgr52QICylR7ttMtw LZPgqS5weG8wxPpzgW1vWq HzKuAzDJssTK2rOPMxY7za sDSaFYJrJAPgP9hiVtFgkU 9jaFxmMVxjZjJcZnMyMFxw YXJ9fQ== Embedded Images (test code = [id number]) [facility] [id number] 19:23:05* Test Item Value Reference Range Interpretation Comme nts Case Report (test code = [id number]) Surgical Pathology ?Case: [id number] ? Authorizing Provider: ?Dominic Keita MD ? [...] HPylori ? Final Diagnosis (test code = [id number]) l7rrjNFeBVFwq1dxAJFidZ FuZzEwMzNcZnRuYmpcdWMx HZgeyqLuZXjzpZllGAL2TS WoMT3zqYildXd0nMlhMWWh iqY6wYTtZKopk9beZIN9o0 ykparvJDMkTJvdUv0hjWFz zFohToNiOSRtGDi1eN66RH DisW0iqENmNZu8JZBbxGDa esOcFyJiDKLwwVBdyZO1FW LrBV2kagvbIKdlLJarKBNy ioL3POHcxHXbY4BnBSSsGW 9bvfihOUF7LFykUMYjEEV8 MhToEGBxm3Bqgbt7QoThoF FyZFxwbGFpblxmczIwXHBh qaEJNmXGHE1MNOLVJTVXL4 bIRTEZJH1TXILVVhadxMWr RZKrCZZxIWPWHZ7OJHIqP1 vJYxMiDR2LDFFbRRDfnBNp HKWdqbSLFzWJMX8WEH8RXP wgQklPUFNZOlxwYXIgICAg AHGzSJnLS8KEMRDcNYTTJ3 AANIpZLJooQn7bINJWYU2O A4fLK8PNKMIKXF8XRHeiPQ UxFANmRMPfJU1LIJzrKVLM OT7PXLVZGWDKPRvLUPKKVU UCKEnBRYMTA4QZWTaMDPYp ijvqGSQlUj2gF4CDAAAMZP wgQklPUFNZOlxwYXIgICAg CGZgTSHXN7NSJzNBDM1CN8 3ABQGJMAFHBT2JWNHPCPeW LN5SPPPZGPBZHOSKE2SkiH FyICAgICAgLSBOTyBFVklE QM5QZTZMKiBQEBxMBKHhNT lTRUFTRVxwYXIgICAgICAt ND5QYCvgTNLRLU2NVKPASa dBTklTTVMgSURFTlRJRklF FOBMGJHFDQ3BHz1LZGQDMo xwYXJccGFyfXtccnRmMVxz r4DdY1EtPrJjJTproySzTJ UtBjrzrimuDXNrYXL8phMz KQGhAEiyZWLjLMgmHq7wcZ KsdJaqLgSaLFTkn1rxurQQ OAyqKnJtS594RRSbYFbti8 glt4EcACCbgCZza5V5NSFQ bteupJh6z5zfFcXdIgZ7mA KaFJmyR3vchaZywKPhU3Qz rPQciCs9vNzqC75po0E9Ax hhR4bpCFEoOULkX0UoOB5l DDPpAxv5LIO1GOP0ZFIgDP ZbL7ZtYW6cMMCkoNMhXTr0 p1pcxSdiMNVuYTL3r1ewJB wblfT7LX6dlo8ecRd9a2wt czEgRGVmYXVsdCBQYXJhZ3 CwtIhbNk8vxCu1zCxvYixv HPP4Lsd1PG5iou82rhf0yG baLDLygazyZrA8SLynBJRj vklgKJa5HKkkKHYhyXG5MT DzzGHgP9TlGAJvRP3gkjr4 VBN9FJodUMClVfK4FLTcgE VqHWUbrGdvUUlum362FER2 LmIhCI2lP0Etl2Q8gQ3hkA UdQJAyuJAsYtJfRFVsac8f tRYrZSucd7ShDKQ1xoO3oW JfrXPpEUIhEO74Wbxgs3Wm HeivEDH7FSLjwmQix4Qwk7 stWeBbcdXxT1dxO3DcBVVn RADeTMKbObOjglVal9Rwn3 CsrBLmaXv5j8rtCTRfBNVh rXcne2whXNC8PEOiB0P0nS Xwv4rmDDeuSWHtyNS6yjV6 MEElpEGeE4ChcP7xHODyYB 3cnbj4b1tmXQR8VGtnCVLc UeF0niT8FKEzlTYjUONkuF zgKAqab953HZV8OtJlACUj i6CvE9MvoLjeD49rqUcjT3 9jVILjoNxlaU8cfRxwkO4p ZjBcZnMyNFxxbFxwbGFpbl xmMVxmczIwXGxhbmcxMDMz DYqlK7yiAlRbTKGnxMrhJY hqr0MrDZHpBEViEpymxbVe XHBhciBJIGhhdmUgcGVyc2 9uYWxseSByZXZpZXdlZCBh oPhvw1QeW5zvAB2oN7HziM RsklSmreKuKZjhDOSdi1a5 dLOjdCoew1FviIZlLI88ni BoFPIwUPQ9YKIsb0nxNL45 faqvKpJntI19ysXlemMqEX Iec5muT4hieLQyq3Zfn6Jx xtIfZVuxy3MzBM8ywUGnnb gqiJK3BTTgrGSphmCvdaD1 hVcuELCpiD3mwZ1azQtqgQ 0wWkPfKwNhURczVT2kDIIj H0swcUKtTKVbGXPrU5deGp PynL9cnBnbYombgqO3UHHk cn19 Clinical Information (test code = [id number]) Shivani Schuler is a 47 year old female with IDA1. Gastric polyp x 6 r/o adenoma2.Duodenal Bx, r/o Celiac disease 3. Gastric Bx r/o HPylori Gross Description (test code = [id number]) x6jgeINyYUPguPWFRNI5BL JbAB7ggOnetKk9xUlvHDOt arB4bCKgPUdtp5bkQPN8k3 jmvkDAFfuiHNPhII7yDYsr OUOmNX5aBmWcJKWbVeCoDH BhcGVydzEyMjQwXHBhcGVy cSR9ZNMsTJ1gcgpeRJjmNB zcZUUldzH9RGOqsEDdE4Iv PVLxYI9uyiwwCQQ4QBCRBu vdVu5jmETosMzeHtUbEvLx YXJzZXQwXGZuaWwgQXJpYW h6cA1ZBtwuCUN8PQIOQgap CrykmRwxe8ZdrEKeXKRvKH xcaWQgNTEwMDAgXFxkYiBP GfFeWpH3Tzi0ZLK4KqZ5IZ t2BHTGDYAuOxvwRJM6QgQ4 DDa3VQWfGH8fFLiswANrFU xuWbvqAYewS326SOnhKRRz V0ZtQ6LjDKwzDyCsUHksHG AyMPOtMLidXOQwG2ABJPEf RCP5QfNaYHEuBHm0WOhkH7 EFVFZuLPAgXaY9JSKoAwX7 GGk2ZVCOCf8bQBgaRsLiWR m9BSE9OJn3AaMuQEZuUxKb TVEtRUBaLWsgzHBqAB3ciE rhNIVlEE2ZBAMdRSdxSKMc KqRsZ4BPO4vGEG4vOHbnuM JjaFxmczIyXHBhciANClxw GOElNJ8NMEWpMOuvAXz2sb XgOQTmTmXaPOByR74th7UH q6NpUJ8ORUp4zzSigkfhvN 5gWVMtedNjXFhSjICwwS7a yvQTFFecBQLdA6ZfnuTwJM jwPVHtzp2ovNtsDPovEwTg bGVkIHdpdGggdGhlIHBhdG tpolPoW1O9ukJdVQ5bWUMI CXLerI3vGREaTNHmh5KeeR XtvQewU6WqmNGnIvIej1x6 pTE7SEBfawQaMNVujYHrKY Ddnp9cXTcyVxBcA9S9TPSu VYVnb59laZB9ihNnPkIhrX l3lYYyRQC3SS1uvYalqaWd z9m8lP9sBZMxp7F6ZPQho8 M6KFKajhNfhXEpxKSzYBUf OU0ghaWmVI14WSVgNGgsOR rgRPU5SNJ7JDMzqQCpn8xx xazoTz3gTAniYS2nDJkgXX 15LDQpWQukDMJhG6DnP5T6 NMjaSCGsBSOfdXIjhV3uym BgtwTqzUx5OWTqBZO8fFNs tJkaEZNaQzqqrBY9GGYwOd TspvTtg4PxvQz4bATcAMoa FERpxH8xlJ8rOMCkBWGesg NBGnluOFKpPSkwd4HaVMaw cGljWHNhMzAgDQpcZXBpY0 5cn7JOp2Umq0eceSmzh2Io xFWhEJ7wuUOjVB0Rp9kbMI LqpIByVPG6OEkbl3mfWPdi LXB4RMUeMjYxJVRrVZ3RZe BpPDiuXOb4LJayWMt5YYn7 TY8ZIbKgKABuGic9EzH1Ot JcQPs2FVevTJ7CPFX5DUEz NJBiJIdeQMB0OZIlWJo6VN IgXFxzcyAzIFxcZmwgXFxu B05nrNKrATdtGfVfRIubnV xmMNAtUHK5SN6AAQZcKxWp D2OQR8vHQQ6fVguoavEiQB DotfDEWgcuFRPrRO2SLVPt QTnpOUk8ofReQXLgPfScXK KxK02mc8VFa5PnAI0HGDw7 waFybtnglG2tKNXlumSqm6 IzMFxlcGljWHNiMzAgDQpT wEZdeL0rcnBWIVqyVBUlB0 DprpRnNFaqNQXjrr0cdXpr IGxhYmVsbGVkIHdpdGggdG xfSYFaeRmxxyJyH9J1exPf NJ3dGKGDVQEouR5zWBFtQF BbZTXsZBKvfT2yINP3v0Ss jzNcHWXYOEPsnRmeRO61oZ BjZWxpYWMgZGlzZWFzZSBh xtBhjyBlk69rwuDhg4PnIZ 4zhPckKYkDBHzqZiZvYT9l XHVspjVyv7CvRZ6vMXKcyX CqISSajunanILtHAm8hCJj PJIuYwBciIywj2UtBHCcTG ueIC40jkRkNV0jSTvqTP2k ZQshDG9kEPGzZYJiWXAbLd FguQWpEjRhzBWuMlFqJ99i ShTOrJFar4TuE9taWA9tjH WiZqotyDZmUGIhvZwzn4Eo sQOqGVAwo6YptOAnAIakBW 9sFSY0Sn0jdTDvIODptaC7 g8QoNYpxDXQtUlqdPSLoAI qsh3NvZUCkuGJQh0DfIV2I XHBhciANClxzYTMwXGVwaW BRe0WoFQDLJhgcyKnbNrFz bCAlJoR5WGZhyGBgIUT2QF 7rlNaoTHJbXAs1QVylCKCx Z0GrI5MdTTqiKbJsSCsmVT HsTUZwOHekDHXlJ2CEFHDa NNW3PiOfTJWgCXd2DTtrW8 INWWAsJAHgVrZ3CCG1CyG5 JBp7VWTJHi0cZEdqQaQyXM TiTdW7JAf1YaNiDZUyObLx VYOsPJVoQMnmaLOrVI5baR asZIEhUQAuZPR0QBEwsKVN i3XxCDXvFCveVrFkJRGVZY RPRA3CEdVMZHYaBbJcbLSo FY1CMMCzkzBoNTttyIhvmK 5eeBRxK6dpJuOoDkqnjEbc TmVzdERvYzEgDQpcbHRycG FyXGxpbjBccmluMFxzYjMw FZJkwFCAe1UbUGDXWsCyNO NpbWVuIEMgaXMgcmVjZWl2 UAWbkR0lYm6kqANhtB5wkU MgYJcjXWDnz8m9fWH7fNOk pBI6jSXryRayYlLsQT6jgT IxIZVCOZ11zAEzwlQiMYRv lC7oFGAfACKiVSQ5vpdsYW OFQIJ5jEDcy5F0NXsiRCR4 pQ2wnZdwOyYqR0P9FGViPH Tkn85ysGU3dvGfCxGpWVGz yh2tcI9lZSykoeRfyVvuya Yqk4K4VUQvz6L3VDUotrZd rFFsaHJwIAUjLrH4KFZwFw C7OIVvDOGvgAHeYWLdXN1y VGhlIHNwZWNpbWVuIGlzIG DtcIHvnvHbPUSrfk10W2vw KJZxfV3ie0dvMkFwCXFrGQ AckNJevVX6NSLukX1pgW33 miWkicHWKQ0xqRKtWU4JKR NiMFxlcGljWHNiMCANClxw ODYdAHkle8EvXRnxnLdxDH QuLbFvSDkZfIecIREJQ7no iDIhUKqlHEWAWJcAC0QSEH 1YVUVrcEIGKYW0LQ5pHWjo GUKiM1ItY8TqrlT8t2dsoH bvn0LjfLHwHK0kmSXkGD7D XHBhcmQgDQp9 Disclaimer (test code = [id number]) h9oxkCDaOZEtg7avHDSrmD FuZzEwMzNcZnRuYmpcdWMx QKrxdxHfWPkjj8PoC2KpMi AwMFxhbnNpXGRlZmxhbmcx WHLyJIZ5sqAwSAYsVKamEE UmXGbqYf3feSMimUnaGkTk SDAuf3snwzURDDfuFpHyU4 38DYTfNFopb9cxp4XvDNVa iNPke2P9UBFVjdqrgHy5pH paY70vq4V2RqslM4pmAZBp IGMbF3YnGS5xRROoAxz1DS U8VVY2RPOfBBXpW2YwMB3e RQBwaLApAVs5l2jkaZhvEN MbFIS8q9odEHrwfdByRB6f rb1nzUa3e8mabjKyKRCnWJ AnuVPKJAFbN0NtzEecMt2f tQv9iVchSynvBNR0Gtn5ZQ 1isv73mwq7rSfeITNvfrbv WfY3ACreWVAyfadiXDp7TC vmZXDeoIX6GVRjaKZbZ9Gf RYDtYQ1yuxd4SCI8YXdrWA WjDbN8DHMpeIAtIGFntAsl GBbbm788INI3NjPzKW9kP7 Nfj6F5wF4pbKCwHAKcvPFz WhVzTPUdgr8baNSxFZyye5 ElEAH1thY0fUUpcBAqJOYy MH46Ihmhy3EvZsovy4IrI6 0ibSR7RHdzy6oxIM4bQwL9 ewYjFVvfv6yapC3cSeN1ZV bqKA3uJV6eTTNhbZ7zewvd XHBnYnJkcmhlYWRccGdicm EaLj9fdEmyIML5YPwbK5yy pE7sSzZ3RIxeU2ijrY2sYI o6GEgxzHL2VUJcgU6qYI0y cjrko5udGGhxEHwuWTKtcv X3vkQ3GMEfaUAhT1VgwT7k ROPbRL7atwmok8syQBK3LI wcSBMzJXO3JqBgDZSih8Wg zhg1LhZiv7RzoVNsULzlU3 1nt814XEOxwoYjB0otuKLu tjtfhTNgpjtaVMcqikH6RI MvgpPla3WcSLYiDPE3MQjx JEpczVMaPJTcvQdlv2huD3 RscGFyXHBsYWluXGYxXGZz MjBcbGFuZzEwMzNcaGljaF ygOTcrHgWjAJHqXOrtO3qu DrOgL5YmISTkGjFyfSUoR6 ggVGhpcyByZXBvcnQgbWF5 EKjcW5y1KEUukgZtxGi4ir CbBkXcTXRjDVM6QFotvHCa NPEvc5UmqcsshVWjUh3pdN GqXZIpfQ7vPAEsRYDlPYcb ZO3myRt0MVSQvLPhsJEyHb PJVGSyGY47lnTjNRGOoaji y0O5OWxnMUWie9WzxNZpL1 yvo2AhHTDsg68nWB8at8P0 r9fsNPE4GS2dn4EdULVanN IrfUMpVDPpj6Enzuygu5Nb OSRplhIil6FtZVXwunZszC PeBOZgcxWgte6ewfAiEIDo QUKmN2OtsnpbbVrktjAoKI Wdta8ivjRiRLK5GAWHRADj VAYxo1XseN4hiSCOMNR6pY Wpri4selDWfOXsAIFzyn42 WBHnQT1gL6aeGLIoKDVvdi FtqZEda1MxFQCbxUP8dJWb FI8VSzVRo01hOUJxDFTOkt AzBJChiEytjUT3sfX0wW2c IChGREEpLlx+IFRoZSBGRE FcEC1wquNqk7MbgmZydNth EEMtzJMve5SdiSNgu6HgpA sfc3VrzSOvrEMiQA3nFZSa clxwYXIgVVRNQiBMYWJvcm W8j8HoFHBlHPDqVRV3sKpl nmz4EKZpvK8kXSPeK2dqxf czHJocYSDwi0JclJ3iiFWM fXQdp2KsmVAxsNFFkXHeVO 8hjpAiGOaVOYgGIAA4qsRi FFCvp3LlMOnnV1huF95ogK qnzAy2bQG9ERT6aB6yEke+ IFxwYXJccGFyIEFwcHJvcH BeXXJbsXhnffBvS5UawqYk hZ1klVElnjHrEC5vYP4rG8 J2sQTqEMCpvrUde2tfSGyh dmUgYmVlbiByZXZpZXdlZC Syb8StPBvkXZT5OYvmlpHh bmNsdWRpbmcgSCZFLCBTcG IryKMdTXC4EWbivjQmlhMl EK7iuL5cwRdagO8mcJXdhK D2bookNHYgRLFpbRdfJZJo RE1lrDhoeY6bIzLiFqErTJ jjKY6wIFJsK1wfoUJdGZSd FTAjT4ldOjTfjE3fnDluDJ xjZjJcZnMyMFxwYXJccGFy XHBsYWluXGYxXGZzMjBcbG FuZzEwMzNcaGljaFxmMVxk HvFeYRDoGDxaX2nsClGhW9 TsAYYwSyRmbTXlF2zpFYge SZF3SCJlSF2cnYSeBZ07pS Amz5zzNIvgcWwoke6hA13k aARtUScwzCxcPKJlw80qf3 SqRABqebRdxj9hSRRtwnI0 mU2hRTDszVwuOXKvgAJyRC Lge8YdAPietGQsdhOpYXoj FMYgXSEvqGBfraC0saRpao YxgxCpADBndNmzBDMxp8Kp BBWcGQglx0Kveo3aeITyDX XudbFNnAmxvYHowD0lD9Nj RAWvKMApmc4zSSSwcT0lQH aye2QryywxQMTjPJInRTKd xvTcdv8qKVGooVRWVL7XOB kkpRQmc2OtckCzG0pQQCV8 NUQwNjYwMjgxKSBleGNlcH EhLJQzky31KVFciP7gjGqw BQKnrF1neT3vzXywdW8nQl OpMqGlGEupVA4bOVYqL1el uZZdNTOgUIOzI0cxHnGtnQ 9jaFxmMVxjZjJcZnMyMFxw YXJ9fQ== Embedded Images (test code = [id number]) [facility] [id number] 19:23:05* Test Item Value Reference Range Interpretation Comme nts Case Report (test code = [id number]) Surgical Pathology ?Case: [id number] ? Authorizing Provider: ?Dominic Keita MD ? [...] HPylori ? Final Diagnosis (test code = [id number]) j2tdyPPpPAQbx3jvTEJgpO FuZzEwMzNcZnRuYmpcdWMx INewkeWrFVsyhGzfDSB3PA LbIL9ulLqtdKt2nZleLEMc zcI6kEWkRSuwk2zoEGU0s1 bqzstbMCJvZXjzAs5jiBJc xZddMqAjABUxCEy1lH99TD KtzV4unGCaUCa4XFCrtYOd jkHvQtEwIVUozKMbkTN4HW JnOL6wlqcaJKznZBnmRGIp mhP0ADMrdAMtV6IxHVQqBX 7oabknLKD2UNwsERVwSFA5 OlBtJVJla2Trjxd6XzEqcZ FyZFxwbGFpblxmczIwXHBh xbEYQzUTHG7IBZJFTAOGW0 xLIIICPG0KOMEPYnkidOXu HPMyNJJpTIWZWU4YZXWkD7 vXCjQpZA0HAGTqGKYglVNx FRHcjgIXJjYUOW4VUZ9LYB wgQklPUFNZOlxwYXIgICAg DKPvVPaZZ4DMOMAhHESVM1 NAVUbYNUrjBb3oFZLIGN7C W5dJO6PHNOKYKK6SUXofMD MmRWLhUDFfJQ7KNHrtTBYH JD0QQRBRHIYGDNoTWFZOZD PHJNoAAQBQT5NXLOaJJKBp yybdBCVwKm2zQ0WHVCJGHG wgQklPUFNZOlxwYXIgICAg IRGoWUTOK6QNCdBSIC4WC9 0NRZFKZNXPWO7VDRKTQYsX MM2PKLCVAAUFNPJLO2KvhU FyICAgICAgLSBOTyBFVklE KI3JUHADDdSUOCrTWMMmAI lTRUFTRVxwYXIgICAgICAt UA0CYEgyMIPTXV3QONPBGj dBTklTTVMgSURFTlRJRklF YRAGQLFFFG3DUy6QVMURPs xwYXJccGFyfXtccnRmMVxz i4OvK7LcRmSvXHrsteVeSY EdYjljiucpLGXmQHM7vaIt QJQrPMlrRVNhRNliVo3kbY HvpDquEqMiHHHwg0touhHK ATefIbVcJ492URZuUVcih7 fym4OiASHygARin6F3DDEU zelmnVw5e0slHfFjFzF1oI BtRMfiR5gyxdCkgYPwM2Jv xLRrlKi6yZjpM85rk0O4Uk jcR9haAUPaXEHzZ5QyWD7g EJOnLwt4OYD5FZW8SOPtNT VyV4PnJB1eKOLmpCLpVDx9 w6gdhOizACLwHKM2y6zyJS joirY3MN6bza9pnIc1m0sj czEgRGVmYXVsdCBQYXJhZ3 ZvcWjcTo6gzQs5iXinPean YWX6Lgl8PH8muk20weu0lG dqTTSglrvpZoR0DSkyTYTo vobfQGc5YTpyVLRwkZN3QG XqdHMkJ2TlJMRiXX0fcfw7 MKO0MHrbENUvPeC9HMYbuR QoURKunGkwSRlnm241QSJ0 OuTyXN8qZ3Gia4O8jJ0mkC NeKKQdrTPtEaKuOCAule2s pGVsCNplh2RvSOY3hdV3wS VtsPBdCFTzHB95Ejkfd9Ur ZsjqNXF4YDInbkUcl3Efl3 eqWgVfmiEgY2uzK0RyCLCi BQFvGNDxTnSavxRqb7Zef3 UvyXBzyJt4c7ahQFMpQLIs iHfqj2viNNM7ZZIjB3I1qI Xsa5xuSCtwQTShwAY9plD8 RRLxlYCrW7AcjV4rEDPpXS 9bifi7t2sjSRK7YGaxNNPv KoA8ljN7WDZomWPmRKPscT xoVSfwi584OJL9FdAxSJBh p0WwA4InzLcoD95mzNdoT1 5sLETnpDzuwR2nvVkaiJ1i ZjBcZnMyNFxxbFxwbGFpbl xmMVxmczIwXGxhbmcxMDMz UUvrI7pbZjDqLGSpeUbkXI tlm5RgKQXuOUDuCxwzkoRq XHBhciBJIGhhdmUgcGVyc2 9uYWxseSByZXZpZXdlZCBh dUhqb4MxR2cnMD1sT1NynH TgdbRgtbKwPXfsOGWsk7b5 jCFkpIqdq5QekVYfSF01co FdXMJgRNP3ZYFvk2paIL78 fzrjBbWzmF25ntTxofUaKI Clf4ryC0iuqNPcr4Ure9Em yjClBDmwd4WaLN8adASzis smrRM5OPWzdUZwfzUsffG1 wQkhEJBkoQ5iiA4opWrqcN 6rUcQdTsVjDXxqAY2fZIMt O0yukOLuMGNoPVHdK5yaMi UvbK9tyYwfEbnzeyH0PHLv cn19 Clinical Information (test code = [id number]) Shivani Schuler is a 47 year old female with IDA1. Gastric polyp x 6 r/o adenoma2.Duodenal Bx, r/o Celiac disease 3. Gastric Bx r/o HPylori Gross Description (test code = [id number]) d4jsvXHjMTMvqNOVEUK5ZX PgUD4bxAgibOt0wLwcFXHb uaI8xREtXImwk4myUWP5f5 wzviPGIblhCMHxTK3kNQhb KRZfMG0iLnDvWLHeIeXyAL BhcGVydzEyMjQwXHBhcGVy xXS7RDUnNS9ucmnzVNinFE yrSEVxwcY2NBBhiVKdP6Tc FOMsJV6ddzxiOTN1MTRBCu jkQh1svVOzgYsbLqVhZcDe YXJzZXQwXGZuaWwgQXJpYW y0hJ5VRplwTSI2OKBNCysm HeabsOyoa6KbjJLmYUYhUY xcaWQgNTEwMDAgXFxkYiBP GsQgZzV2Fyo2YDR0AnY3KF a5LELPSDBhTjquPPI9TmS2 BMy9KALgVD5iDJnubHCbKI yoUdkxVLekI978TYjcCHEx N1QoE7HgQEmvTvUwFSsbRC XxRLFsPQfnEQHoL6SNTCLn UJP0DwBxPKKkXWb0KJgmE5 UPTROuPLAvTyM2BMCcAeS4 ONd3IHXWHx6yJBctZzYgUZ u3QRO2OKh9YiUwHTQoAvBo KPWiAFXlEMfqxRZqBV9eoZ mxZCTsJK6KWDOvVCgjQLEm OgDqK2TGM3rJZY5lWVnhyQ JjaFxmczIyXHBhciANClxw LAAqLC6KEXSjWJmfWFd3qm QfMMVoLcQcEJEfI38sy9VB h7QvAQ6ZPXw2rjUytimxaZ 9eVKEgiqYhWKfIqSHfjP7h wcSQWIifNSItL2KmupWxUZ adICSamr5reLxyYEfgNxSh bGVkIHdpdGggdGhlIHBhdG xsqwTuV8Z5peCmXP9kDGTB PGHlxA4xVGAtVNEka2FkpH KqfLccX2RjxDRbFaAiv3u4 rFC5NEQtyiAaYGUbqQUdUA Ecmd5uHJitJmGtN3F6WFGw QYZsa16vrWA1fgLqTrVnxJ l4dYLmFQM2IY8jxJfedhZi k1u6oZ8aEXVwr8I3EMYgl9 A7YALoyeHuzVQtjOKwFHBs CV8wyiZmMV51MARyPZiaYM cqPDQ9CBH2BMHwaOBas1gl xrwxFu4tXFpjJP6lHFkhBA 02KIZiGKaqCYBpN5PaN0G8 SBhkPPXmRTTdgTHfdL9wbf UqdpSeyKm0DMLaTIO1qZHu uUevKTDjRxjguRK0ORGbCs QxroGbt4VlqQy7mABeHUrw BHTqmJ0avS5bHKBcOVRycx XDHtepGDYhNYdwa7GjOYgg cGljWHNhMzAgDQpcZXBpY0 9xw3OUv1Mqa1qqcTmzg9Ku gYNlYP8ssCPeDQ2Sb4fbGX FitDHdUNY4SOkva9afMZpc DMS4HBFfPmQcOHBwTG0EIf SlZEsnPOp6QEcpKYu2JDu8 DR1GLsAyZLTnCwd2VjH4Cl MqCXu2JUnbIO2GQMJ3MTBb EVNsNZmtCWG4JLJbNMz0ZC IgXFxzcyAzIFxcZmwgXFxu G67trLGyPAttHmXiYLnytB vmZDYfXKA9AJ5NQITaZiPl E9OSN6zADV5gTmlfccEuCB LgarLQZaoaCUTiFL8JNHOn UNjpIXj1yfEnHMGuHqRhFN KmW32cl0CBa5GnEC0LGDc1 tjJyvyrlgE8cTRJmtwXzj5 IzMFxlcGljWHNiMzAgDQpT fKYobX5nrgURFFnrOFXfV0 UkgyRgMOrzQJKpjk1jxYyh IGxhYmVsbGVkIHdpdGggdG vqNCUkeDrfoxCrF5I0cmZy YP5kLPHIGKQflU8kYBCqSH QnMIQrXROavM3lLCY1k7Ve zeOlUKFADXAuoOxtVW36nC BjZWxpYWMgZGlzZWFzZSBh plEywoBtc94hjfJjz3RiFS 6htJckNGwTVVczKwUbJJ1q DFXcjhGhx3FeFY7tUQEllG UtNAQmkmeqiQUvCUd6oKXj GKPtNmZqcXxkq3ElXCLiAT sxBV72aaRvXD7fQYeqRX1v ZRdiCP2oPNRcXUIjTHDoFu BbjDBmYvDgrGWvPrAtW66f DrTGcTRae1OiH0viGQ6bwD SwUwmurDOtEFNmtQlbl5Kz eEFrSULaq4UgoPAwJGzyQS 9aIJF0Qi7tzLCuJVNqvuQ9 z3LrESrlXZQiAfahQBLsQH fyn2HlFEGyyPVYy0LoYK0Z XHBhciANClxzYTMwXGVwaW DBl6GdOUBKRjqpaGpgNxJj uCWuJlP8APRixEEhBPG8CP 2sdYsyBGSjZZy8ZGcqFKBa E7QkL5ZtCHuyVyOrEPkyRD NmTTEbKThyIBLhK6PWCDEt WUY4CfQwWRUgZBy1RAxiB2 TIYAKaDMMgTqK1AXE7SbQ1 XIa2UOIMPh1dZTpgPdBaJK MgMgS8GEa9IwJnHKYhTzXm NGCyREFqFQiyuDJnXT1pmS pyHMDzHLDrWSY7SGNxwSDG m9DwLUFmGBmdUdLnKGIKMF HMGA2RKmVERDJsOgTugXOr QB9TVOCwvpTiVCyemTqyiN 6qsSDvX5kkMrIlIjyqpJow TmVzdERvYzEgDQpcbHRycG FyXGxpbjBccmluMFxzYjMw YGFuuQBVv4HhDVNKZwMlCU NpbWVuIEMgaXMgcmVjZWl2 PQTlvT7vNa1irFZhdC7nnY BpDGthCFAlz0q5iOX1bNNp rBT7qKDboTdmPmJiXU4cwU HhCDJPUK40vAYmryXiKCFf tF1xZVIbJTGqPSI9huxyGX COSNG5kJBdj9U1RHydDLY2 rD3siDzvOxSeM8L8DBWlQN Uoe44tlLA2fyLgOzWiUKCl ih4hxE5sWSkybuYqfDzsgw Pjg9I3RGMid8P4CJQaovWj nJRjgULsNJYxCnA6YZVxId Z6MATzVRWzlYOyFCSmBK4w VGhlIHNwZWNpbWVuIGlzIG LzoRJwhbIbCDEscj27Z7tk OYVmuK6wq7wjHpVcCAQnVD ItzVSpsOI7ZXXemU7abB26 abCzonIISY8hoRGuES3UDO NiMFxlcGljWHNiMCANClxw ACTyGBxzw8DlRGcuiAhlPW ThGiLjIDlDjEjgDKRYT5wq kYQfPUkvTQCIZNfKM6SFYO 4QOKHcgRGAXCW1KY1gJRwu ZIYoZ2OpY1NmzsT1i6nvtV xjq2FunPPtXB1gxWQvMO1T XHBhcmQgDQp9 Disclaimer (test code = [id number]) z0mpgSExXGUyo1uaDMAboY FuZzEwMzNcZnRuYmpcdWMx PPptepRaHZmnv5FeT6LlMx AwMFxhbnNpXGRlZmxhbmcx SWWxDBI7owPzRYNdFFbfOM RbQFawMz6klFNlwUhqImKv LOWgm7cxuzVWBOpiZgOdD9 22GUXxJZoxi8oxz9ZdDPNt tMQef0Z6TIXEnqlwpZb4mD nbK55ob1D9TjjyN6tcZZLx JJXoP5MqOU0mYHYqVln3YH V0PRT3LQFfQMIyQ1JtHB8j IXGvzPKeLPs5j9hzlTjuMP MpLRR0a9spYTtiqjCcTU0l sh0fdPt4n0qqfoEaIEIpGL PfuKEAKFLfT1JhvErxIx8v oLu8nHicFwchEZN3Sia8DU 0bed05nmv0kKupOJHegfmq FxB6HSpdJDTjopgsSZg9EB jyNCZzeEJ3ADSrzTSwK5Dv HMZcYS9igwt1UQQ2WOpvRE FhXqB0BJVkpGSxWWPfoMhy TLjhm354YXS4AsJqLX6qW3 Aod3V9zK6xyALlLEHecCLy JoOdJFJqef4vjESdGMvuc4 QoYLE1krH6iLQxhZZkDOJt EL97Spmvc1RlLxdfy0LiR3 7xgVF5ZIkst0fsHT7nFdJ8 fzDcVRbii4zvtH5nRiX2HZ dnTL4dDE6aUPLalW3wkxpw XHBnYnJkcmhlYWRccGdicm HrFu1deRumGAV1WWfkC3ik aB3hGoR9TUquA7hdzY8xEG m7XBntpFJ3UJVtnS0bTZ5l fbuia1cgHMeiMCqaVSYgjg H0zyS9JNMleXNsQ0UxhN5f HGIrAY7nmhiua7sbZWI1DE rqBJOnWFF6FqDcOGGzb0Gq kag9DlMju5GspJOrACpkJ2 1zg786CXCxsqYrQ6dmhGEz gzexvFTinbxqSKjrdgS4ML ZuzmJfk4RrEQWoJUL3EZlm VUfryHJiANAstUziu8uhO5 RscGFyXHBsYWluXGYxXGZz MjBcbGFuZzEwMzNcaGljaF odIXopFbSwBTZhHJczB1vs QeFyN3YvOTMuWqTbjBVnP0 ggVGhpcyByZXBvcnQgbWF5 TNlhY5p7CCQpakKxuPe4kx WvDlQaHPEzOZZ5OKqlqFJc LIOjp7IvupmclRAqSs8itY KuZXXkpN6vZZIoZAOtPQmr IY0ohRm8UFZUeRVfnIDfFc BOIBKyFX13gsMqWFAMalip p1R5PWrvFAYtl9PotGCpG6 ygt7RyICSos37rGU1hq4S3 r0mxYSW7XX3xf5NvNCFuhR EyzKZtIXNst6Jkzbxtj5Ax PFQyksBua4HcONTmpnNglG XiGIQlasLelg4unuUuLWZf RRVlF7LbidonrAmpqtWgJG Nars1vepJpOTT3DOZHOKFq ZJKzo0BcuS5rfLFGKBE5wA Ratm7fggAPdCMhNPLieg78 ABBxAF1yI6qzLZIcFBPvfe LtoHPvj5SqDKAonMU7dIFr EM4CGdTNc25wLLBwKLPOar AjMVEojCfewUV2nsF9iW0h IChGREEpLlx+IFRoZSBGRE WvVS5fniKqp1IvnbTbhFym ZRHlyEKef9VezIMho5RjhX zrg3DzvTKksSZgVK7nQLKz clxwYXIgVVRNQiBMYWJvcm Z8v7JmTZZsWEScGKS3iQcd nvd9QHErbU8rTWOjV7gghb xrIBfkZMXse2DqgU6upZNB pZBya1RzrUAhuIIAdCKoQI 2foxFfYBhZKSoNRBT1fuJu KHZly3QlDXjeO2wqT21puI ntfMv0nMP1LBS6lH2wZpw+ IFxwYXJccGFyIEFwcHJvcH QkNPXntGuynaTxL6TekuSl uA9cxVNpluThBY0uFJ3vH5 Z7zEEfWTSraeTwc0icOSbv dmUgYmVlbiByZXZpZXdlZC Khf4ZpDWseMQU9GJeaknVc bmNsdWRpbmcgSCZFLCBTcG AglJStXVL4AEivfgWuokEk NH8qpJ0mgKpppR1vjXVjwE F3vatwGFMbBXNlgBwrHVFl LO0bzDeduD2xAfOjEqClQB goEZ2mAZQbU4wstOYbJTXl YYAhA4yiCeWmpK7mtRhhYY xjZjJcZnMyMFxwYXJccGFy XHBsYWluXGYxXGZzMjBcbG FuZzEwMzNcaGljaFxmMVxk AjLrRQZyUNalD5vsYgXzL8 YqSYYuRmJppOQqA0vpUVzc EBC8BEVuDJ6agURdYC38cK Kkn4feJPnxvUqiyc4oR41o kTDiMPgdlGewPNSag45vy1 XcAXNwodIino9vZODiavY5 hM6zGLSbgOrmDQRmpXNsWU Xqn6BtWTkepANjjrJpTMiz EQWoHCNuzLOskzE9jjVbcm FrwiPzVISenYbwSOBji1Sp ENYzXXxia6Vrgk0sbRMnZH TdzbULgMatrYPplF7zM8Mq FMHfJZUhqs5fYFMfnF7yBI wis3FaowdsZRLhPQUtQRMl uqBiqi9yZGHcjTUIMA0RIX kqwGDec2LbvuCqV3oBSQP3 NUQwNjYwMjgxKSBleGNlcH NnCWNqti04YIRdvD3zxDrt DTAwkC9msV2wnMizwB1dHs GtZyBoOAnvMV4xWQWoT9rn kORjAFAnVOPdS5dtDqIetV 9jaFxmMVxjZjJcZnMyMFxw YXJ9fQ== Embedded Images (test code = [id number]) [facility] [id number] 19:23:05* Test Item Value Reference Range Interpretation Comme nts Case Report (test code = [id number]) Surgical Pathology ?Case: [id number] ? Authorizing Provider: ?Dominic Keita MD ? [...] HPylori ? Final Diagnosis (test code = [id number]) q3oegKGqTDTtl7bhBLNkfD FuZzEwMzNcZnRuYmpcdWMx DTyuwcXgFJxxnJciHYB6XY CnHZ8oqKzelPy8uFqpRKWz ifV1eCTlSZecd2aaSAY8q2 sgacujOWHuIAkoQp8csSLq nWotFpMtQNEuUJk2yT19DW AczD8seXLhZNd1QCVniYNj cyGiRzEnZEStgDTjlQV7WJ ExBH6dhiovYCylWNhoSNSy lgL9QRGhyXEsH2GzIYJbZC 8bgapeWHH1QFbyDONqEEU6 AjIrKIFis4Chjuh1KmIgsJ FyZFxwbGFpblxmczIwXHBh qnETZwSEWY1AYNUDJUVQD1 lJJZELGN1XIUIVEcrssZMd XSMvCQYxWNFNLG4OFOKdU8 fRReHoHB1MVWZvEYKpsCTp LYYlsvRIVbSGGT8ERR4RAV wgQklPUFNZOlxwYXIgICAg JSRiCLkJD2OFYBZuQRQNJ7 QPUCvBHFquAq1yQPYSBV5J U2nEF9ZXWHAWYW1GOWexRI TpHGYuAKKhVP3UEQpnFIVD QF7FKWMXQNITHUgVXKLFIT NCKFjYRHUMA8WLIMmBMSGv wxnfPJEgXj4mQ3DMNYUOSZ wgQklPUFNZOlxwYXIgICAg YSVcQPWJW5KJCgCAXK2SC9 6XOEYDYYZPZD5RQVANAQtF SU3WPPTLMNTATAITK3KskX FyICAgICAgLSBOTyBFVklE ZD0BEELOEaGAGFuWRJKxKB lTRUFTRVxwYXIgICAgICAt EA5ZQLsdDIUPDG6YAJBUAg dBTklTTVMgSURFTlRJRklF ZQKTZLGQDZ6BVz9BOTDLNg xwYXJccGFyfXtccnRmMVxz n0HcG2McQvYsIJwmfvLpFO LoIxmzzzpgRBWcVIY9iwNd NFKcTFwgXVAsBHflKe0eqG RjwFopNnZhOZMzm1fkwtJO CRxoKpWcB482QZGePSlur0 rbb5BzYCOmnPKrb9O5FBMJ ebrynCu1t4tnYtKnYgQ4vW JvBUjtD0dvaqTqkHTtV3Sd jAFpqFm0sQagJ01bd0R3Dq dmJ7byENZzUGOpB1IhPH4b LTLhZtn3PPZ4LKV3NUHqPX UjX6UmCC3pNPAfrREkKHi1 i4gceRhmHPFfBZP6j4nsRC dovtF9ZQ8aco4eqPy1s6ep czEgRGVmYXVsdCBQYXJhZ3 FwrRctCt5cqRx1bOqoJhzt ACO1Vdj8PG6tdg26ude0oV qcNIQsyyfqLxR7MGypTEKl jtjeRQk1NLwrVWDhmDD0OJ HgzQXsW0OuKGQaXI8aofh3 HZP2LYepCFReQhO1ZZOelU OcNCBgiYhqVVosi128BYQ5 OnKeXI9gE0Akb4W7hA8hqV YxESPmnZJvBwEuYHSmbp6l cCHcMXaps6KsOQB2ivT9fA UprPUfFJZtBC44Yckih3Dh AgkiATF5IXKyerKip8Ekj8 fyQjJdknLhJ4nuR4JyJEVy JZZpFGIzJfHydgRpc7Han7 HobZVobDt6r7upOTFhSXQe eCanz4etBGP4JXAeZ0N8oO Dti0lnWRxiNBJxxNB7dvF6 QBQoqFEyH8PrkK6eYJEwFO 6ltxe6m2tdLHN8MKmkJJVy YbK3edG3HCTawADiMJDvpM dnUWzmr499NZX6JvHzHLJh s2SfG3QthDgiJ15kqGkuX7 6gOWKloHyocE5umHmbzX0u ZjBcZnMyNFxxbFxwbGFpbl xmMVxmczIwXGxhbmcxMDMz MEjaH9erYhCjXJXdaFevBZ wiy2XpWANrBCNyUzhsaeRf XHBhciBJIGhhdmUgcGVyc2 9uYWxseSByZXZpZXdlZCBh xTecw9YnQ3hcMI2kF8YccO LatjSafnPiCAkxJKWne6w4 oKNpyPnxj7SpuCNuAG26db BmBROjYIR0JDWgv2joKY53 hdkjByNmbJ08shTtuvHzEY Stx0phW2yxeVSyo4Diz2Pe soHsFOqho9RyVT3rnXMuvw ussAQ9CIOnrOGigwOpwhA9 kWxpAHSmuU8ouD9mfWdgvI 9pVlVtEyRgLTywKP8nENMk S2zjoQSvYAJhDZDyQ4gtKi QlxD8riAqhOlvjmsB2LLPi cn19 Clinical Information (test code = [id number]) Shivani Schuler is a 47 year old female with IDA1. Gastric polyp x 6 r/o adenoma2.Duodenal Bx, r/o Celiac disease 3. Gastric Bx r/o HPylori Gross Description (test code = [id number]) r4jqnMVwHIJebZZEGTM7KX SaEQ5qvJgaiXl8sVrtNQXe cbC9mUZaMPibm6pmSUP4q5 fqwxIKJvtcGQAcZU1iFFez ODSsSC5bFzQlHYJlIbIpEP BhcGVydzEyMjQwXHBhcGVy hWA8OAKxDQ9dihzoBDiyCQ gbYUGeduT4UHCvmSDnD3Nx TGAxVP7ccuedGUL7LZKCId zjMh8fkEGpqIwwSjVtUqHo YXJzZXQwXGZuaWwgQXJpYW s6dQ7XJpnkQGE2ZFZOYwdi OyjiiOqxs8MumATbEHBvLU xcaWQgNTEwMDAgXFxkYiBP GiMxUxM9Eam9YIT9BmB3NB f8ZVGWOJYhYlvdZWL4YcS8 TSg4DFMqWM8zJAfkjIQeFI zgLtvbKMckB726BAnbRENd Y5BbC1ZtUCxpHvAbJEtrGT NbVGBrJKauOEZcM0MNGKRi DBL6LbMmHYYlJBo6QMosB3 FWIQHxHXAfVuY1HONmMqO8 DUo8LWOYDk8eHNjoHaOdCV x0KXO0ZDv3JhOtFKUsVgZx ENWwIDPqYYifyNEhTI7ctH hnEZDmEM0URIJgQYryLSMe YbFeE5MMY8iZZH5fYHbdyO JjaFxmczIyXHBhciANClxw XATnBL6KKRRdVZmiDSc2zk KvDJOmNbGhOXKcM95tn5LK s1TgHS5VFUv9fxPniuhmpN 9uYHYuzaHmFAgVmJXraD6p ifIUOFbdABGsS5UlmtAzWZ ehXHLphz7xvOndWWsxMsLb bGVkIHdpdGggdGhlIHBhdG aqufSiU7Q3gjIsDN6mKNET FFTqvR4kHFXyKKUco5NhbZ PguRlbX8TjcMBxRrZwf1u8 qCY2JXEtxnDuBQGojUMtZQ Irlo9tSEmmExOdL3N9NNMc KNJuz63boIR6qzEtPuGttQ c4nZEsFEK4EE9bmWcsrzYq e4e5kB2gPUJan3I6OCZyo9 R8VECprlGvjFUgxHRvOGHj XZ6qifVsPK91GSWuOLrvHB bqVLF8JYW3EWYswYKmo3vu popbDu8wSImlXQ7mVAooWP 32WSJgSOtdRFKnH5EbW6U4 WJpuUZFmIKUzmCAnwL4hcd SrldTyjPi8ERXaKUC3hWVg rVujXIJaGbokmTS0DMRyFc PszzGnw4SmsDc2xNBbZJvp FQEyzH7geZ8tWHVsCRCnhs SWGgskFJTeVJxuo4ZoYHkm cGljWHNhMzAgDQpcZXBpY0 4ze9OHt0Vhu5ujaPwjg0Ev sFUcQE2ylBFlEU9Fy6vfDL WeiJJrBPW1EWcem9cjVTle DQS4SZDbJtBaTFMeXW5BGt GwOGwnYMu4DKjiSDg0QUg9 PX9KYyQsQOYpFus5OhJ6Uk JlDSd1CFevBF8CEZO3QYPz TYXdTMwkKSX8IGVdIYq4BE IgXFxzcyAzIFxcZmwgXFxu R57zsSLfZDnxEoVnLYqaiN ovAKFeVHU0LC4XJODsBsIk G9GEU0tVEM4pVjoxdxUeQJ DpsnEEXqvzRGArML1OXNPn NSasIYm3otCaCQLlGgViUF XgG11no5IWj5ZpYD9VUYd7 vuBhfxaxjF3qNEBbpbPuq4 IzMFxlcGljWHNiMzAgDQpT lKFajU4ramOSKSicMFLqF5 CtkyPzYMlkPOZvfe9jwVim IGxhYmVsbGVkIHdpdGggdG ybVCYtnHmuiaMfD5G0nvKr YH3eALLQNVRiwF0yDPSnRQ VwVTHdRINzxX1bQCK4y6Mc sbCpBFDRKGEyvHijZC26iJ BjZWxpYWMgZGlzZWFzZSBh jmPykfToe23tqaJzt9GtEN 5jkGtiMJiDOVvjRjTiYT6v DCDpsfCoi9JmPH5bETOamZ CfGFOjeiquiXToWXy5uAKv VQXgXsGatIrnl1LjIDWeKL emGF49xhKlWH2hWOsvTY7a RWdrUA2nSVWkLEIhQEDoKa PwnXMqLzMwcZHvWuElM70w CeDYjNEbm8RaM4djNX8qhL ImKwwwiCNyDLXnqHucr2Zz eSIfZNAse4CmqUNmXBofLM 1gXKV3El8veSItQUOghlM8 o3GgWUdfMMAyKznjYHBoYH ozu6ZpBDQexTBEt1YsSA5A XHBhciANClxzYTMwXGVwaW YVy6ShBSZLHxdjxUhvBrUo hZMoHvP4XLEtnBMyHBY8AK 2kcCcsMMHaZNs2GFmaATXz J1AjY4DdVCpvPyRuPSqjLR HxKMHbDEaxJMMwZ3EHMHVt HGV0GyZyBTUeKEn4FTewL5 VRIAOkMGKxQdD1MHC8BqR4 RGb0CBCBKm0oZHwhPrWxGR FlXdH6SGl0DsYvOBMmHrDk ISBuGERrQXdahJCaTH6ukP rgHJAdNFWsUXK1TRUmnUMS a4IpMRNjZApqXjGcFWSEEO HVOL9WNqXDHOEmCaDqfGDe OV9PZKZxdzBkZZwsvJdbfV 2hhPPfV6fmCfKkLblguBtq TmVzdERvYzEgDQpcbHRycG FyXGxpbjBccmluMFxzYjMw JTJpsDPGd0VjHVIKMoEgRS NpbWVuIEMgaXMgcmVjZWl2 WXXrhX8oDu5rtNDvvF7zuI DoJBwtJTHdj8b2jCZ7pYWn wSP6xXSjlIpzSbBpQH2zrI NxCTHCKI46zUKzelJrJWNk tU8wEUJkRAOzMSP5egnzYH GZJFJ2rSMrx0M5YBwxNLO9 yX9mbDhaAtVjF2S2PKGySA Wcg07vrRV1lzTtLcApHZDj gu0vdY4rARnmmbYqbObsvu Lzu2X1TQXgi1N3QUZhkdGc uPNhbVIxMNElPbZ4CUCrUt J8CGJiKUNdeXLbOZBhTF9r VGhlIHNwZWNpbWVuIGlzIG KqoBJhzkQrZCHfdi71I9wc ZKQbyI7ue2bzZkQgTTCvTX FviRQsjTY4WGEimK9tuQ37 xyXrxtAXIA0jcXUmSN9AHJ NiMFxlcGljWHNiMCANClxw GFClGArrs3CaPQafyJpuWA YbHzXtAOsYbFauVVDFJ7pr dAWfMMswXADNHQaWU2SDGO 3MKXGunUHRSGN7SM7bOAiu MFGuV4YxK3HwlnX7w5wgvA mry2YudZDtBD4cpTAsBK3O XHBhcmQgDQp9 Disclaimer (test code = [id number]) o5yqdLUcEFZxx1mzMLSqfY FuZzEwMzNcZnRuYmpcdWMx ATsdtnFzWShwc5SmT6AfHg AwMFxhbnNpXGRlZmxhbmcx UOOrAUV9sbJkRQRjORulWG PbGXfzYj0tkKCuqIyvFkLz MJCgz0kdjtMUBVgbQpOxH8 19ZEIrQFegx8rwa8MpPFJj qWJyz1R1HSPPhrfycZf0cS cyN20tq0A5VdvkG4egMUPa YWVoO5QsSI1sADFpMwe4IC R6VOL6NGNaPSAhM3VcSN1r BAZheLHuICo6n5fgtVtgCR FrGUH5a8gyKXxsjzLbSO1v rv7byAu4e7uligOzKPZgXM CjmCUVMFHgY1KwpSwxWo3t dTp6sPqmAftgHYD3Irw3ZJ 6ast07wts0mEdkDLYgkrzw RdT0XSppIVWeysnlZFc7CT fgLTVblBA8BWSumYJeO0Fk SRCpTJ4eahm9JNO9YSwrGU EvZgQ0LEDchAKfWCNpaNhb YSsmo628DSR3ZsNqVD9rJ1 Ppv7N3qR3wdLTiTYOzaPGk OdJmGGYaqb2qiZPgJEibq1 NpVIS3lnF6aSEmlPBeGLTe WM22Xawnw4IkMjvra0WuJ9 9vjXQ5VKean5mqPL6hYlG0 beCyPBbqx1ikxF0zOsU4JC jdSI2tTZ8mJGMdyH6sjpzu XHBnYnJkcmhlYWRccGdicm MeMm5scXjoGVV6KYevJ6po vF6rChU8HGpmW6onyI3vGI v3KBltxVK9NTOgoN0sBF2c aartn2tzDIikFMfbUOFnuc V8tkG2QOZnbLZnH5VquX8v AYMkRP1hbbkdj1otPQY5EK rsFLFcUIP8LrWrWXRbw8Ev eoy2GhCvh1DsbOTfBDkcL9 5wx560MMZkaiPwJ3ntkRKm qkznwRSudqdnRDuzfbF7OV PnqcLil3AvIWIxILJ0IBgl JRekvVXlWDWvtTfro3tjD3 RscGFyXHBsYWluXGYxXGZz MjBcbGFuZzEwMzNcaGljaF ehBItdSxAvMGMoKKbyZ3mb PmSwK5IdMHFaGtGfeMQxF8 ggVGhpcyByZXBvcnQgbWF5 KYplT6k6ZIGrtnTilNo1nx ZsAgGlYYIjVXG5EYnnyVJv VBWhl1BffufjoDDrJm2rgI DjJSXjyS1jQETkYZCcCOak EO0pjRr8ZCLCcKIvwRSoWl HHIRHjGQ07srPwFLMPattt h4X4BTygKERkn7DeyCIfD7 ans7PdLKSos41lHM2ft0C4 z8dvGZS8DJ9us3AyOVZnjO UgwQQnWFPjc3Vimlpqu4Yb DGXeckEod0HeCITcuxGrzA NoKCYssrBxqr0tvnEhLKJp ZIPuK1CwqkzaoFisdfPfVE Flrj6mtyGrFJT6LGAMLSQt MZNcz4DobE6egITRALY9bW Colq0ztoQDuFErKWZwac07 WOYsHV3uK2xtBQTdRKMrdg XotOPnu8XgJNYewTS1wWLk DY0XKxHTq44fINRcCGIBte XnZMRswOyjwKD0zuU2qL7x IChGREEpLlx+IFRoZSBGRE JhOL4qviYdh0FfwmBeeSul ZHHgpLXmm2FyzRKpt4MtxG bty4UfbTBjoEPwEC3nWOQg clxwYXIgVVRNQiBMYWJvcm T3q9OrNEZpVTCnTJV8mBnr ooo6YTEvvW5oTHPsV5kxrj rqYNtyDUDkg1SljJ2ewPYD nDSme8PouUJubGSKzVMlXS 3obkDtSWeQLLlCXZM9ivMy LAMbo4AxOLztP6qzR90rqP numFb5lGI2YNT8tD6aKsq+ IFxwYXJccGFyIEFwcHJvcH QcUZIqqSgnoeUtU6HyweHb vJ9pmCHpgzTcZJ9ySY7bN1 K2kTGqLPBbyuXmm1dtSEzp dmUgYmVlbiByZXZpZXdlZC Cte9KlWZvxGME0OBbbkjOq bmNsdWRpbmcgSCZFLCBTcG TgpZOfZWD8MFkptwBfxzGa ZI2coO0xqJxvfX2jhTNbvN C7skymIYWaYWJpwQptBRLh CS7nkIfzmI3yCyDrYsIzSK ltTU3vXPEbV1cajHXcXBOj VUOuH9htUgIqlN9yhZjcDS xjZjJcZnMyMFxwYXJccGFy XHBsYWluXGYxXGZzMjBcbG FuZzEwMzNcaGljaFxmMVxk UhTgRYDgPBmzR5mcGoVnK7 CnSMJyZoMcpUWyS7xuJFyj NXF6LIVlFM0bgSDrRH58cW Vrt3dmBDzywThiph1eB84i iBYgUIaryLpmTFCvf99ej9 BwSWFvpjUxka2eOKAyvsO9 vS3rXVDudUdxMRVrtPGaLS Rsu9KiKLgrvHVxosGsGSrw CIMpKYMlxEUfxxY1apLzlb PwiaOiZIWepSemSZGvu4Hw KHXbQLeui2Pvqq0gqFPqVN KjptDEcAlmxVWnkE7bF5Gq IRXtNZRrtm8fTIGxhK5lUB riw0ElxbppNLKyDICtYFUp bbJkdh7wDWZvrCJWPS7IOY dfnSBxg7MatkAlP7fXELN9 NUQwNjYwMjgxKSBleGNlcH CuIUYpsy66FFZnuN1zdQvq IYHyhE7ezD7wrGfqeJ9qBs BhYvPcBDfuAT6eDBVxG0sz zZJnFDNwILMlM8beNkLgoX 9jaFxmMVxjZjJcZnMyMFxw YXJ9fQ== Embedded Images (test code = [id number]) [facility] [id number] 19:23:05* Test Item Value Reference Range Interpretation Comme nts Case Report (test code = [id number]) Surgical Pathology ?Case: [id number] ? Authorizing Provider: ?Dominic Keita MD ? [...] HPylori ? Final Diagnosis (test code = [id number]) i5iruZPsJNTpx2bpIOOtwV FuZzEwMzNcZnRuYmpcdWMx LVmcpmHgVDqcgGmqOVC0GU XyUX3olYbfeVo9eHewMUMl jdP8zTIzBMrba8sdLNU1e4 eppszxHCGoERjjEy7fuQXk zPchIbXaTACoXSf5oV34PT KfmV6wsZHuOOp9XLRsuRKs yzNeJaGuHJVqaODvfFG1MT PcRS1ldrbxHEfbQYcwIRHb joB7SNKszBIgS3SqFLFfQK 2bryhpFET7KEkyQPDfKNV2 OnPzCNHyk4Paxxo3OiQvpB FyZFxwbGFpblxmczIwXHBh eqHYNdEDDB5RDCSHKDVZY2 cPCHNZOY1DRTPLLedweYEn KVHqSTKmSDYABH9NLDQuO8 eIZvZiNE5UPTRtCLXwxABx JPCjrvPCTgUYSB8IGY9MTA wgQklPUFNZOlxwYXIgICAg BWPeZSxBP8EOMACtVJZXD2 IKVWsEEAdjDp7vDZALPA0O G9oEL7LYJGVJDC8OLDdvDE DqSNPdPTXvBJ3KRHxyIDGJ WH5WLVNURQLMQVpHFIROBE SGQIzGUWUNL3JUIYnRWTKe azoiPEVnKi5eF5JZBCBHRZ wgQklPUFNZOlxwYXIgICAg DYJqLYZNQ6FWMlPCBL9WV6 1NVRHOVGGUZT8UUCWONMxT LD7UBABJBEXWEZCZD2SmmW FyICAgICAgLSBOTyBFVklE EU1JGBBCJgSGSCuSYCClJM lTRUFTRVxwYXIgICAgICAt WG5MKKfoBHPBJG9GKCZHCi dBTklTTVMgSURFTlRJRklF YZHJARYDUG1TAw6HGSXEQl xwYXJccGFyfXtccnRmMVxz p1MuV8ZuJjOkDRkxlyYiRI TrIhznsdlkLFKzREL6jcWv DCPeFKkhOHPgUEeaRx5sfU CuwYrpQiEkBQIly9nddpCL UTasJhUgM323RCDgMUujg0 vmr3KgDUOdfDQph2I9ZNGC fjxwlXx9e3kiRjUqRwW1kK KxAShnB0ozooWamFReD0Tf zDMspRr2oBgjL40fs0W7Yk udG5vyIKYxTIPpJ7ZwQM1v GSXbKic0YGN0ZLY1VKSiPB BoH7McRL6sFIZreBXlCVo4 x2qnaCviYGQsYUS4u6iwEB otrbY1YJ9ujc8ptZc1o9mu czEgRGVmYXVsdCBQYXJhZ3 TdzWlzUc2dpBq7zIyxFnaf GTY9Idy0KJ3ego52yju7qP eeZOCbqqhrEwR5WUpdDLOl uzyhOTh8LLtjEJHjtHE1BH YanACcQ8GgDFGaUR0gdag7 RVL2GHsqJGAyRyI3YKQapR EhHKSwuLtmNJtfi658ZIP9 WtJrNF3oW3Gnv0I7uB4aeR BrKGXciVDiRhXpWCFpqg1s mMIiGHegm8DbGFX6ryU8wI AboFWxVWIjZA41Eciue5Fk KhpiJSU6FUYrjrPmi5Vzi4 ckVzDnrkOxJ7gqP9TrDMPz MKVkGIQaQgIqksAcx8Jqq5 ZliCImiQs2u6fwMDAiZJTz pLlty7riOJR2XTSlY8O8cZ Guj2xcEStvPEMesDS6ozB2 NWNjoTLcK4IsaA4vGGYyXJ 6gzns3b1mgNQX0SGjnPSCs ToF2fbN6JOHclTQtOLJnvE tvOAika619NQH2TeUlHXGu w5RhM6XvsFxxY19fwGxdG7 5sJWJtoSkpaZ6fmUgclH0p ZjBcZnMyNFxxbFxwbGFpbl xmMVxmczIwXGxhbmcxMDMz OGssS0uuWiByDXWybPrmUE skf3FtPURwEZBmNxdpktJz XHBhciBJIGhhdmUgcGVyc2 9uYWxseSByZXZpZXdlZCBh yJcbn6HcO4uoLW5dL1JwjH JlvdUpcaQmDWakGQVdb1p8 yRDbhTnno1BtzHBzDT00qj LeLZPoDMW9XJScz2zkCI97 zwpfLzLyoX88jqIqyvBcCH Jpt1bhR9rfdMFfw3Zvt4Je vmDaCHbph5UlEP0hgZDnzz wsjCT0ZUFaqSXtipYfzvZ1 oYitACExbG8ciO0jaZlcxI 4qAuPpIzMjQRurKT2jLNRx G5bpgCEbGSGgRMFxP0ddXk SzwL1toVzrNbbsdvU5CIQo cn19 Clinical Information (test code = [id number]) Shivani Schuler is a 47 year old female with IDA1. Gastric polyp x 6 r/o adenoma2.Duodenal Bx, r/o Celiac disease 3. Gastric Bx r/o HPylori Gross Description (test code = [id number]) u3juqUXsGMXhbBKGWJQ3ID OnDB4kcIbgnXm5tUdjMFZw vcX3nSEdGDmcy2xsWFG7t9 muhoTZVslzKVXpIT9mVTen EZKjCJ1zMpGnBHKsKwTeNB BhcGVydzEyMjQwXHBhcGVy pGW8IUEoQP2lhpkiDOcwLM txWAFksmQ8LIQtlMWsY0Oa XRQkFV8ejlfdJWF6VLXFIk mwFu5abBRjeOvjRfBoUcUy YXJzZXQwXGZuaWwgQXJpYW f6nW2GUzqkFLZ0SAUXIryj LplicYafa7JwoNRdOSTkTR xcaWQgNTEwMDAgXFxkYiBP WiVrBpY9Lbp2IKR5GlT3PN r9WTIYUYJjTqlwMNC1VzX0 RRs3NETjGF6jNZmvbMHsTO xmVqbvGMlgX070KNaiUIZt Q5PhY2NmUImnAjOgJSfrPD GaSPAhIZqxWBJuK7ZYQBBm CWP0BjYhOIUjSYf5LBvvB7 PLQHXlHGKgBcJ4FNRjJlZ6 VBq6PMEHPr5jNVmoSkNuPT b3OQV4JRp7PcZfIXMsQeFn YXBpXQTtABniwZCdWT2fmJ mzQKDaFI9ZPPPoRFmzSOSh XoDiX4GUT6iOQC7sBBrxoG JjaFxmczIyXHBhciANClxw MZWuQE9FHRAbZPmuVCo0tg QyGZTaBmCvUUDaN20ij9WJ l1RrZN4UARj4ltKprqikkG 8jBYSpepYnLKdMcNQqnJ3r qbCWGJinSKUnL9HsogKwML clZNHlwb6qzEwpKGgsPzKt bGVkIHdpdGggdGhlIHBhdG wmhgMkU5K0sgCpNS9vBBBG YUSpoL1fEPYxDGLpa7PrnP SmdHfkE9VhqIZdFsGrd9v2 mLK1UJHipnEwIJNvoZZfTE Xewe3hLFeeGlLkR6W9ZYWa POPni66mmOO8fmPwNpKxiV q3rQRbDRC5ZZ0coPzvqmJc y7q5xG9kKTTfl7N7MBJmn6 S3LUNbinPcqVCcyMTjZCEa SY7mnoCoNF05SILmQCboST bnXEE4MTT3GCSidXUyn0qj mvfaIs8oGAfoHW2hKUvsJO 24VSVaZDziAPCcW1OfS2C7 GZfwSVCzLZYunNWzfZ7nhy EvjlMibZs1WRWdLMK2iVWa oKbyAUAuKnvrpVU5EIDwHc QpxxLrl5LjhKx2pVGzARsm TYDfbD5ojS6xFGYgAHZnfl EEOyufNWVwNIvxd4XjURyv cGljWHNhMzAgDQpcZXBpY0 3et8FMo8Oie9cerNhjx7Eg rEIxRF9ccTGuWO9Ts9cfXV AiwVIjRBS5ILmxd0qpQDtt SLA6TQSxEmYuOXYoWY4FRo HjIBwcCJq4SLwyNDc0OMw8 VR6ODqYcRVBvFxs2PvG0Nq MwTPy4XZjlYK5ECDR7ZPCh MLQpDEmqLJD7UQLgUUe8KN IgXFxzcyAzIFxcZmwgXFxu O75acSPcUTwoGlRyOSfqvZ njDDEyAUL4OH5GLWOzYrHt L6QPL0cWJJ9sVsyprcMrMJ YmeaEOOcicDKBtYP1NNBVv CBqhELu9dvIeTXZcSnPaJS LdG46wu6XJf6BhEH3YKYa1 bhWylvfxtH9cCYRhluIlw4 IzMFxlcGljWHNiMzAgDQpT vZVloU1lhaSKGLzkNMIaI7 OqgnHjAGqrRIVqnd5geZvt IGxhYmVsbGVkIHdpdGggdG tlNTTcxCoblqScD7V4pqYr OT1dHJWFHICurD3oMKCgWU LoWWIrHDCmdC9jPBO8o7Py akQqXOCHGURvpRxiUK05kT BjZWxpYWMgZGlzZWFzZSBh rvIlbwFba01rlfYvo4AnAO 9vdInpZTfFHXvuKlSpDS1j HPZhmaXph3FxPV7jZRYmaT FoMUMxuflzwNKaUBx3eNIx EVFxDoOdxUfay8ZcFLBeFT wiKS44ehYcZG8eWJhbDT5o TIpbCW1xDWRzWYBiREZsXy AlyQDgHzRehHJsXtUqF41b XpNGrROax1PyF3zwBD2mkB KqYbrjnSChMTCwrZywn5Ys nNLfVPAwj0UmhNOjYEywOP 2yQGG6Ig2uqGFnHSRsffK0 q0QhTXwbCRJcBaluGOKbLX sor2OyORYrkQUSj8NzZU1R XHBhciANClxzYTMwXGVwaW GHn5HvHAFCYrhcpXetFuRm aFVyZmS1FLCrpKAsNHG3BB 0ixFgmDHTuUIq1OEdfMYVz F4OoT6HwOTgiWbLvSEkfRN SdYOShOGzoJVWsT8HHZHLf VFV7ZgDaQFWsLFo4XOkdV6 DTRSCrBAGmXbX0TEK1RoC7 HLd0IJGAKm2rSCwwUkDhWZ SdMdX1ILf5HbSvWODlUmYt XBUdTABvHUthiUTrIM9oeX noHXYwEHHjPUY6XXQxdSPT f9MqOUKdYUdyBjUrHBBVAQ LZCE1ZWxZUYPKaXyNttCYw SJ3TGUPihpPtRHyhaFwtkL 1odTTkJ2dpZjPfKdbadUtf TmVzdERvYzEgDQpcbHRycG FyXGxpbjBccmluMFxzYjMw VKNrqGMOh6ApXGLHYvFjOJ NpbWVuIEMgaXMgcmVjZWl2 UHKbjR3gIw1hxJAloY9yzP BvPIzhGKGdf5k8zZM9sCOm lJD5qYCwdUgxOsAdVB3tsK JkLGYTLQ41bKYnuoUtBRWl fG3rSRXhBEFtLAF5kpynZN GKEZF7qCPnb0U4DRzpHCB2 rU0jxAfqNnEmE9T1DVHoYU Ong95poGT8xnYfDrHdROZu xv5chG4sYQmhrhSlnMvqmp Jlc4E4MUUob8T8NKGbafNf hNYljRYsCEDuBbS8IXVrUe L1UHBjXCVvpUWzZWHkHF5p VGhlIHNwZWNpbWVuIGlzIG UzoYDfbhMuRMSgzb60J9vl NHGgpL6vi9uzZzLdRFZbNH XaeLJzqQI3ERYimG1jmX42 mqQobpUXAE7rfVFrIW8MZY NiMFxlcGljWHNiMCANClxw WYNiSPmtn6KgJNhldPmwGD GxYgFmTBgKnBanNORZA7kx xPTsKTtkRHXJTSvAY9CKVV 4LBNOtsDZEQSL1NW3bLEzk IWRtD7CmL4NeubY4l9vpqX usa9TtnSQoVN0cwVCtBK9B XHBhcmQgDQp9 Disclaimer (test code = [id number]) q0dlqSKlWWNbe3kfSGOfgY FuZzEwMzNcZnRuYmpcdWMx NAmvohKtRNqhx3ViF1TjVg AwMFxhbnNpXGRlZmxhbmcx RTRpBCG6kePoYOVpDKtrED NsZPcxOm2wbNUjnStqFkPw YZDel0uxqlODZDtfBvVeM4 68RWLhGLypm8nah6MuVJFl sBUmy8C7SEQInfgidKv9mY psZ80sa0J1RxkvR2wpLCDc ERNuS8XmZH2vAGSaDyv5DQ M5XJY2TPDnHKIlB2WrYS2n HLTggLXqDHp0p3zysJicNI ExBZQ4m6suBKdiimWfYI6j ry4umOb4z8edofZzGTZxWQ CgsTFLSNUfR9KlnYjkFi6q wCo8qFxmMcagZIK8Map3MX 8kge09rml6gZmcWIJhudnx ZzN1SQraIZMuseozQAa3FZ yiDKZllGB5XDXstBKeH5Cb PJMuRU4fcug2FPL4UGkjEK HjCnU7BSSvaTKfPDHvsXdu TDwnc785ZBK4ZqGlLD2xG6 Inu6V2vE0aaAUyUGLkpXXp OuOlYZDgvr7egEUwRJcjn3 ZnLSK7qqL4mEOvmQDzQSFt GR64Jgdaw1NgEqqrf8DzN4 0dwAD8YHyez7egUB1dJdK6 uaGyYEgas7dgrS6cImB7RR jmHF3tFA6zBVByaZ0ndiqc XHBnYnJkcmhlYWRccGdicm PaBs3yeDvbUHA9LUepN0qu wC8lIdU3SMsgT3ssvR3bEV b2ETyioEX3IVBypO2yZD7f tctxq9zcQYbvSTdkPOAyty M7flV6IXOqbAPlV2UvfJ0y ILXrOT7oddicd5twDXU7VK ubHTQrITS0VxXrOLHoz3Yr qcf8RqOup1KybDZcASkfN1 9ii222UPFkcfSdR5osnTPp bsoquIUsvgcuIIipndR0BH PnajRpx7ZoJPUyQNS5IEhl EMnihRClYDQtgErkn6auP4 RscGFyXHBsYWluXGYxXGZz MjBcbGFuZzEwMzNcaGljaF zdAVqkTmCzZRLfBBwyO7gz ZeNbU4NiTVXjCgWwqYJwP2 ggVGhpcyByZXBvcnQgbWF5 MRgtP9k1WYHiukWchTj3kc DgXnNuKBCjBBC3VVidfAJm OXAco2LnbdfjaOKeGh3uhN PhHENkrZ8sCXBrDDMbJIeb CU6xnMz3MYEYjOHfhPDpXz WGNAKbVI59mpSvCPOXkioh d0F3GOelIRIzl6TxgMWaR4 yee0GjMUZnl17iOZ4oy9A3 f4koCNW2EF7hw9GsSLZmiB EkfXNmBSXyu3Rfhxwxa3Tf WWPxjzHks4GvOHMmupMmbC FmSLKsjmIhnq8qfoJlVONk UTKoC0JvdobvvXtzypAiPT Mnns5rzaRiIJC1YDMOOVAg FWRgx7PvqT2oeCUMTIB3iN Qheg4praEGbPTfWFDbvp90 MSKfQK1kA1oyOAOoZIIbos VtnJXtr6IiZBQpaZX3vXWg CD0PTtUHv92iTZJdSADOgw YiORVnlZoclYF0lkD9dA1e IChGREEpLlx+IFRoZSBGRE YlOC3xcyXkz1EldaDztDpc JVSqeCDlb6YmeMIgx4PpcF coi4TxyDJicMQyWI6jOZSl clxwYXIgVVRNQiBMYWJvcm V0r4FoEMOgLBOjDCJ0aKbb bmz3UESmmQ4oMIToE5njoc czYOfqBXZpd7MgqA0suAOC hPFre7VyvYOjxYYMyKPiNE 1almIkBYgSSCwXPEO6vyQo LXIjk9BwQZuyH3orO74glV nblHr9oFF1VJW8aM2mQvm+ IFxwYXJccGFyIEFwcHJvcH AsKBLuiUljplFhD6GkkgXj uN9moCTyqlWcLF2pNS5vT6 T7uJVvDZFaupAkk0zkPCif dmUgYmVlbiByZXZpZXdlZC Lzh7VoSGkqOQA9LLxlisKa bmNsdWRpbmcgSCZFLCBTcG BdsOMkQWU7OByfazZnzkIb IT9mjI8rtGvlvM4lxYIdzQ C8erddFMRqKNJekJnkMNMo EA8ydVwojM2fZhMyRcFoAI hiYB4iXDFfG3eptTHrYUHi JELiW8ivVuMjhT7yzKlqYW xjZjJcZnMyMFxwYXJccGFy XHBsYWluXGYxXGZzMjBcbG FuZzEwMzNcaGljaFxmMVxk MdWkUJHtMXeoS9maKmUtE3 DoKCCzTpYpgHFhV5cnACij ZBH2FFByDP4weRWoBH49fV Lul5gfXXflfKcaom3aH76q cNBoJVbjdJomETDxb76yi5 BcHTTvhxSzhz2iFDZusdD6 aY1rAPYmtEeeIHFucIAvCQ Mhj4WgCUamkZMembBwCNdl NMWjIWPjmEGgxsL0lyClis IacvGnOWJzrFpzSMRsz6Zz MVDgCMcrz5Eyfa3reHHdGT VtcqCEbKfgcVIkpK6cE1Rz TWTpCZBrkw7qFBQqjK0pRC uja1ZbcysfVXHmGMXwUZIe sjDfom4hNBNlbSADCQ7RKP wndSMaq0KazvAiT8yHCHQ5 NUQwNjYwMjgxKSBleGNlcH RrUSOxyh22LOPukR4czCig CJDarO7baO6ijWxphQ1lFm AlKkDtELdzPU8yYEWkA3pg bODtBLPxBKVmM6mlXxJevA 9jaFxmMVxjZjJcZnMyMFxw YXJ9fQ== Embedded Images (test code = [id number]) [facility] [id number] 19:23:05* Test Item Value Reference Range Interpretation Comme nts Case Report (test code = [id number]) Surgical Pathology ?Case: [id number] ? Authorizing Provider: ?Dominic Keita MD ? [...] HPylori ? Final Diagnosis (test code = [id number]) w7altKBnBAIxz9ygXCWinT FuZzEwMzNcZnRuYmpcdWMx FCtrdzYdEGexnVezNRE0DG YcWF9grBubjBn5qIsvYSUa tiX7pRQdJAgrr8iqUZE5g3 xrwlljDTVpHOivLq4mtAEm cAvdOlVrCOVkBOp6aS47GB KhzM9ocLRoSPw1CVLsuUMt meNdPgSrZDWdkIRaiSQ8TH ZoUA9sofewSNqyJKknCFAk upN8YNCyqRMfS1FqDASxTV 0myitfZEH1TFjiOQJrHZK0 ShZyXARgb7Yobqp2XdMidR FyZFxwbGFpblxmczIwXHBh axLAYaABAO5CKFDAASJCK7 mFOYHZLO2TUXHWDycavRQb MDEuTUCvSSODMZ4BOMZeS8 wMAePgMA6LJVZcRRMlzUKc KADtkiGERqWHAJ4JCB5VZO wgQklPUFNZOlxwYXIgICAg ZCOpNPgXB1OTFBPjRMBVI7 HLWNcQALtbVl7rRDJHLH2D Q7uZS7HYXWOXJN4XZBwxAM TpRMRaQQUpMD3ZUXfzLUAL HV1ZJPNXWCLAJRmUBCFKFX MXSNaRQRUYD6JIYDhWWDGk mjfrPVFuTo0wD9PGZBUTHH wgQklPUFNZOlxwYXIgICAg SLLtIQEML1RVLoBOGA6ZR7 8LJCSDMJHELE3LTVERKOiO NA8OGEWVFZBFRRLTP3WqfC FyICAgICAgLSBOTyBFVklE YF3BCGFPOrWICNaQXBGzDW lTRUFTRVxwYXIgICAgICAt VZ5GMJuxSFNBZX8ENDHXHe dBTklTTVMgSURFTlRJRklF FAPXWGNVEG1NFr1GDZYCVm xwYXJccGFyfXtccnRmMVxz v3EgV3LfPyRgQZnzveFwNP EhXrajtpcfWPOwYSQ8rwCt MBIhMYtpOBTyXKngPj4ufU NchPygGsIvPODzl6fgzqKW XZcbBzWjE056VBYvFMwzg0 iaj1YzMBWsdCJql3X3XAUQ ucgciUr3p5lvAcVpMlR8xV PjRNkhY8bpbxNmcBYsJ4Wa uSImgFh9fJzzC67cw1H6Vo gvH1ztNJWlIZOtO9CuOX3i MKJmVmd1WZP1GMX7SPRjCT FrU5CeTK5oRBWjgZGfXTf1 s3jkmTtsAHIhESC3b7unGO jnpgS2LJ1viy4yfKr7k5ua czEgRGVmYXVsdCBQYXJhZ3 SxpTolAn1vdCq8cBmjWhil TYS8Osv7ZN2pql58ehn4lM wlKNCaoqnlOgF0CRmbWMNy valsQYp0RIqbMPOjyJK6GA DzlZWkV8YsIFMxLK8xbsl1 ATL3GAscMKWgNeA2PANkwE AsULJcoYhaYXddd069VWE2 YcYeGR1sY7Uxc5Z0oU4cyD FmCFSgbCSwVlOeRCQeat6u nXPvYCdvy2WlIFU1anQ8fE QreCIeAZVtFJ81Yjgkf4Eq YuwsAMO7KWRancKrj5Lxb7 umYkKrwaOrE1wgQ0HvHQRw XRVxKMDrAaYfjeJfl6Ggr4 GuxCBqrMh7z0ivZJStCCVh gRiqm3suVLR3DTPxD1L1iM Ndk4xrEMxiTFNugRO8xeN0 OVJfrNFfK5PswB6hHXVkKG 1lbuh4a7vqPDX1YOotQVTg PwI1yoZ4FXBprQEyMFNpoM qyNZfji067MAI2ScSgCQJa x2KfO9MsvYhoV70dtXqdK6 0dDIOhxDtetZ5swZghvN6i ZjBcZnMyNFxxbFxwbGFpbl xmMVxmczIwXGxhbmcxMDMz MGiaL0xoFjTbEPSmqPkoCL axa8DvLMDwPWLpBxnjnwBz XHBhciBJIGhhdmUgcGVyc2 9uYWxseSByZXZpZXdlZCBh iYmii7ZtI2dwST2rL8OmfB PkjkHvshGzBIcvRMAlw5w5 tHUrvWhiu1PkjFOiQH21ef JaXWTlNNI8UHMqs0ycXI54 xgerSuVstT00hbPirrIhUO Yfd4ahS4rkmOThl1Zxz1Aa ifYpPIqnb1YoOZ9teXWdtd oeaTE6QMAhiEWfzvBivpX7 qKmhZWNvhU9niL0nsBiwxQ 9tMiTbPdKhMFmpZI9zBTCz Y7xhsZGtMVQnHRKlV3nbId QmnX1drOjyNavfucL2SIKt cn19 Clinical Information (test code = [id number]) Shivani Schuler is a 47 year old female with IDA1. Gastric polyp x 6 r/o adenoma2.Duodenal Bx, r/o Celiac disease 3. Gastric Bx r/o HPylori Gross Description (test code = [id number]) p0qczUCdMKVncTRXZTW2PI JqKM8qpOhlxGr3gEofUWZn yeL5rUXnLWafb2yfQLU4w6 hkogCIStljBSYvYJ5lOCty ROCnPT4pKmGgOXKrEeHwAK BhcGVydzEyMjQwXHBhcGVy dIX8SQLtHK7kqmimMCiwCI kxQCEfgxT5DDKkrABrK1Za HBUtSY6jfgipFWJ8LMLKAj qsNs1siDPjxNjeXeWuQqBv YXJzZXQwXGZuaWwgQXJpYW h5wD1UBdcqGAY7FGERKtxg WctczExcs7QowEAmHJOwEU xcaWQgNTEwMDAgXFxkYiBP TiHbVxN8Hdt5HGS7XvV3FY q6JCBIWBMaUcbdDMC4SrE9 FMj4QYDnGH6fYPuioTNzRP wgTvxsLSkjO087ALeoIKVg Q4CwB7EmDLaeTgEpFCbmCE CcMCRfUHofDMUkE9ONCMQg LSN6WbLeFVVxREq3YKeeE9 IUJBGwGAEbGwT8ZWOdOwI8 TFw1IUPTWh4kXGhlBeUjXE q6FYD6CCj8ZnGeLOHqIrXp WQNzCIElHIziaTOsMX0byN otSTAfVZ1YDMViYDnwCAJn ZpNhO2IUH6bWLE8tVTnptE JjaFxmczIyXHBhciANClxw DOXnOG0JHQXnABkjRZm4sr VbRAFjVfWeKNAcE99xe1LP m8EmQG1UZMr8olPaaskegF 1vWWHejxErCWaOeUGriR1g cbWBDZdlUOAjV9RwwsKbZK dsCCPvck3luRvsERopBbVh bGVkIHdpdGggdGhlIHBhdG dfkkJnD1H3kgHiKA5hDOFA ZUUilZ5kNUHrTERnk1EqyO QiqUmvP4SofMJaYhTjh4j5 aHW1OWMhkxDzYSFjqZSxBX Oqzg7eLYppBpKmK1H8LRMw DYRti61btYZ0syMoWhAyiU j2sXCnUXM6RD8xfFuihyJu p3i6wQ2gORQcv0A2NPLfr9 N2WAUospWmvIVzeZSyEKHt SN2pgxKmCF05KBPvAQfmIM alZEW4JRL2GONisEYrk7cw ydwfVs3jAPodEC8qEUxfVU 60DIEyMIzePCMsE8KqJ7P5 UCpjNPMbAOVmyESpwX9gah LziwDpoYb7XLUmTMB2aZWq jBdoRGGeFlgvpQR5WSPwGw LwncFyr0KjgKi3cSKsNBdh JIWklI2xpW3jNXCvLSYljj UOWchzHPQhQFbwb8UqLLdu cGljWHNhMzAgDQpcZXBpY0 3rr3AXx0Jhy7ejtRdmc2Nm xAOxOP4mgKFaNQ5Rh0jcIZ TouONvAEJ0HYlvq3nbHDxq XHD7DAVvOoAnLTKvVF3NKs ImKKtfHEn5SIbeCDj7WXp7 PC4VHhKoMXYzYyl5NpE2Eo IjRNm9GEcePF5BRUI7IVGv WCKkYComPNW5QWSxHBp4SX IgXFxzcyAzIFxcZmwgXFxu E95plQYnIIvnPhHpSEcqyN qeMWBmZQJ7EN0STUUrPuYp H5PNQ1nPLO3bFhvpylIaNN OlfdTEXloySNHwYN9PFRIq GIagDTn4unEcTFUzFwIhQV MlF54vm7LJj2GnJR2MOUd9 tnBggmdcwX3fWXCipiKss3 IzMFxlcGljWHNiMzAgDQpT gODyoB2ygoIVFJxcWBBfS3 LvinLwGHjlJZYggs1rtJii IGxhYmVsbGVkIHdpdGggdG zfBFKvuFrqwvOlI0Q6nnTs CB2pXNNQYWKzsX9bUNSyNC UmGPWgLRNydK7vVXB5x6Vi kgCvFWZWGMHdxGpkTX50kQ BjZWxpYWMgZGlzZWFzZSBh zwIvnzPbr27folTrd2AyQX 1riUrmFJhUTPiyZbMzUO5x LQEtfqMez3CbGT4qVFQwfV PdQNAdexkipDClJSl3kZFc UFVaLuEisIimx5DxUBEvRH gnVJ26rdImCY8zTMijAD2h QTidGD0xXOLxNCRvJUXqQu FbuFWuXaNqhMFaQtCzB35v ElFTiHJbw4LuJ7yrHR0ydF EhCexloTFfZEJtxDgry7Zs eEFgRYOtx2VknCYoTCvuZT 4hOHX9Mg6jxSTkZRMsbpB3 r7AhRZzsVBFaBjfsCPItEI pgn6JrNWItbDPUr6HnAO6D XHBhciANClxzYTMwXGVwaW GDx7AxBKNGXpburDcpOkYm sEUxScN8VOHjpXSfLYC8GC 2rdYnkLKQxKWh9VWdnYUJt E2FuR1NkHQtdDiYzYOdmWL RiPWQjIWsfQXVhF5AZRZJn JNG5YiCsAKKvBNo0BCdlB8 QTEUFaFJOvPwD7CJM3GbC4 IYp0ZERLWa9uHSsvFuKjMF DtKvB2YXa7KvMaXPJfMgSz UKElFSTkYLuwlABwRH1qcX qlHFOfZBXjKHV5UKEexUAB p9BaDOSxOMldLdQtKXHDLB ZMJG3VCnAORNJhGuBxqAWg ZO6WMGVbvaRyDHpldYjzaI 3vcUOzU9sqNlGhBoxpxPar TmVzdERvYzEgDQpcbHRycG FyXGxpbjBccmluMFxzYjMw XJUwaFVFo7ChUCFATdChQV NpbWVuIEMgaXMgcmVjZWl2 QUSmeT0gMo0gnAGfrP0tsG IcFQwwAKEkz0l2mEG0jGEy xTM0vDSqmTrjOxLaQT3sgR RgKXVBOO07xJHxbaNuMWTn pG2jWWElFYAjGIR0crplXY BPWBS4kXAnd8I2ZDphBIR7 zT0fxSilDpQuX5R3ZCAnOB Zwy10xoGX5jeFaXaSmOVIc bc0jfA3gAFnwpwGagTvzqu Azz6W5WTWvi1T8GIAdaeZl jRZmrLPeJAWgMrP1KTCyZu D5FZJiXYCgdFAdZKTcIB7y VGhlIHNwZWNpbWVuIGlzIG HmlWInhrEmZBLqin41Y6rk LCYprN2zt4imTwRsXVVxHS MyrUUnmNK5TZAvvX9hcJ79 mwTvemBKMF7soSYsRC9MZD NiMFxlcGljWHNiMCANClxw ZIJoDQmbi1ByNIplaVwiJL NuScKhBDtUcFzxJPELE3mo aHGuXBvoMSLPZVjET3ECOW 9FIDQxjVWIVLK0ZW7gOWqc NJAgD1SgB8VznbW6x0blkK gsa7KghSEsPW3ctTCzAZ2J XHBhcmQgDQp9 Disclaimer (test code = [id number]) x5jeyVKwSSBtp5kpNRKdjL FuZzEwMzNcZnRuYmpcdWMx COfmzhPtQRdzq9DuK9ObWi AwMFxhbnNpXGRlZmxhbmcx NJOiGLG6hrXkKCLvKErxGJ XxOTxmVq3rvFUugHwfBsOr PXXlv2zihsCYXPzoEnAbV8 92EELdAXjjz7mez9IgJFWn eOPlt9T1JBCJwdnbtKb5oJ dhM50sj6U7WawyV1dtBPEm IFJeE4FvAE0oACCdSnz3NV J9JHS7IADkLQBoQ6GbSP0q KKVurBXbVGa8l4ogqGjeCW SeNGF0r6uxLZvmuqLdYN3w ky1wuSt2t3pohnWwKFKoNN ZsuKDDLMDiD2HdfVykWj6j wCq1nQdxIknaZVK7Mia4MR 0dki40ofm3nSzgMUUwznct ZfH9AEzsTVRmcmifSHb2EY cvKKMutXY1PZDljHYdN8Ds TDYbSV8pucn4NEC2HDzoGJ YlIjJ2UQQcxQKpVCJlxVpt POfkt448DUW3XuRqEG7kI6 Dwj8G9tM8ebXTrEZEbcXSm TpPrNPNovi2cuUZaWYvzm8 LoVIA4esQ4zHIqzFAnXROx IJ10Kpwxi6WdBgwep5FsP0 8idWA8YDuyk2vxVZ5lMfR4 lyUmXVobm4xhsP8kTcH9GD wfIS0qDP2kZCMgtO6cdcfj XHBnYnJkcmhlYWRccGdicm ZvXz0qvVshWZQ0LSqcY9fe cT7wLdV2XXpiM9dcbW7vUN r6BXvssKE6RGDytW4cPY8v xjvfj7qzCVthKYcvLREsff E7dlY6SECunKUgT8OtiA4j SSBgQD2sfecun1kfIBI4CB kqNIVzYXX7FjRxGWKhy7Kd cjt7VdLsa8JzvVStFWoiV6 3nr701LOZlabItY8kxxNYp xzmtfHDosrfdQEgstkS4AC NlrgEmy4NuTKWnUIE6EWph PQumwNPeMPAiyUmng4xqM2 RscGFyXHBsYWluXGYxXGZz MjBcbGFuZzEwMzNcaGljaF dsMOsqUaVrFSKbTRcxX3vj GgUgH5RtVGUzRdQupFFwY5 ggVGhpcyByZXBvcnQgbWF5 SMfiM4k1ONMpfcPqgQt5uu JlWtOnWXFbVJJ5OAmecDHr FCEbb9HfjfeipQHdPg7qnX PxCYFcxE0nJGHnEXLySVpd DI2tvFl5QUSLxTUpzSCuLg XOWVAwHW85udKfINWPnwwz n0H6CKibLYAuj3GwuAMdE3 tax0VhSAZmn82vHD1iv6M2 r6eiVPS0EH6qv6IpLFFjxX WygESgVNJpc6Syclxnl3Gt CAMxkdXzq5RxTQCnuqCteO DdRRReamZnyp0bmkWuWILm KXQbJ1YjiqitiUhfjrFmMU Ueym3ndkUdFTU1HUNUFGQy NGMcf1EbiS7rhBHEGDL8oK Zbjo0gwzOJuMBkUKVjzg17 DWKsWK5iO0hyXPJcGRThoa LoqNDjl9VvCVFxsBM1yDRd GZ2BNzNMm53eIXHlYWDDds JaLQFxgCvpvCK1xvM1iT5c IChGREEpLlx+IFRoZSBGRE ViQI7epeVaq9KuhqZptCxw NDEiyLJuz3JyeSIgb9BsuW nmh8FfnTTxpAUlVM7tIDDk clxwYXIgVVRNQiBMYWJvcm J5x0DdKNRnCSRgMWO2qQtw ovc2XAHhhC2wYMPsB0jovr icWAsqFTAzz1FgdH3yuGSE pTUcp6IbcPWuiJEJaRHiTJ 3jfhHtYZbRJLfMVUT3cfKz XGIba7CoKRhoH0bvP09jrI tkdNa1mZH1RDQ5oI9fRml+ IFxwYXJccGFyIEFwcHJvcH AoIJAqfOzrrgWpJ4QfqrSk pY9viLBzatLdWK9nOO2kO8 V8dWBfZSRdrhYhj0jeNDcv dmUgYmVlbiByZXZpZXdlZC Kuc2AxKLywWUT8EVtvslZx bmNsdWRpbmcgSCZFLCBTcG RrnDNsGCG0UDmpkwVknvWe SP4afQ1hbUgheZ1xaXChiB X1ezjiSHNaDHLxtJbcYNVg DP6olQibyK2nNwYmQzCpKU bzGB8tFSOoT6sdxTRtZYBf UYSzM8rbQrNggH1tuJkbZN xjZjJcZnMyMFxwYXJccGFy XHBsYWluXGYxXGZzMjBcbG FuZzEwMzNcaGljaFxmMVxk SbBnCKOdTCkmY5dpFqWfR7 NlHICaUmMjkABvA6dsTHpn HYS3QBWvRI7vjNSrXU69mX Ruk3piGLuvzSysrk1hP67l jXSuUUzykVofPULni90fk2 FkWHFfwrSkxf7zSPNuqaW9 qA8eTZDgdWndATHoeVPnXG Ion1CgAQdlyLVpcpKvWDsg CQLiFVXdxCJrkmH1olJwch UdhyBtMLBnjXkkMEUrx5St LMUgDOaaf5Oyde3qcMEoQN AbzdYMmFssoTQwbZ1kG6Jg ZEXsTVEjch6vHMRpnG8hTF fpd7SjophvSZSfMZUsWPJd vqAxso3pQGWuzAAYHO6JXP bndFJuw4CqsgOxK7jQYOS1 NUQwNjYwMjgxKSBleGNlcH GuDNKdow83BQChyP7mjKra KHUiqW9jxZ6tqLqnbV8aNo OrQtIlFHpnAE4qCTVqN2hz sQIsDMSbRHUeG9gzNoMaeV 9jaFxmMVxjZjJcZnMyMFxw YXJ9fQ== Embedded Images (test code = [id number]) [facility] [id number] 19:23:05* Test Item Value Reference Range Interpretation Comme nts Case Report (test code = [id number]) Surgical Pathology ?Case: [id number] ? Authorizing Provider: ?Dominic Keita MD ? [...] HPylori ? Final Diagnosis (test code = [id number]) j5bsxBItDOCvu0dzDDCpsP FuZzEwMzNcZnRuYmpcdWMx JIkjkmGuDYtdsQurMFZ9LQ RfQC3tsMyspCn1wCcmXHWl rkR4lZRtKLswe6yfDTR8a0 zwtxaxRGBdFXusOs3pyPZk vWqbGtNoGJHfWKg6dK73EU ZymP5odMAoONr1JKKtwGQo gaZsHlAjUNEmhZGhwMO5TX BmQK3sdztwVXqxTQxhEEQd xhE1NHBqeCYdY7ApEXJhFL 0uydngLIX7KDjoUQIlAHR1 DwRwKNYso9Luwpe6VaEagR FyZFxwbGFpblxmczIwXHBh duEOIsFUDA2CYAENHSSUJ5 bZLLNDTA1BCBUQJkutvGRp GORxADAcPKPJUX9AXYCgE4 nIVkQdHW9YCDIcHKFzjMQr ETAhcwGDXhGDGT8GON5YMW wgQklPUFNZOlxwYXIgICAg KBVfHZuQS9ZIHNSnXTJCC4 GVSScITKncQb2lDYOYPG7G W4rDI2KMHAKVQI1PMFcnBO MqAFBbEWGlXW7UOCcjFZWU TL2RFADHSMRRYMcLYOFJKW AWEWwHASJDA9LGAUcRLJTy phkiYHSwGz7eG4TFYFDMRG wgQklPUFNZOlxwYXIgICAg EGDbZJRMD5ADVaXVOL5UB5 9PAUYAFFVCAE6MJIYUUUbD GM8YCAVKSMXKKEVAD9RpwO FyICAgICAgLSBOTyBFVklE FT7XXQPMChUNQMnYYOZxEW lTRUFTRVxwYXIgICAgICAt DO1FYGcyYRLOOV0HDHJWWf dBTklTTVMgSURFTlRJRklF YJLFWXRNKW3ETc8HNDWILs xwYXJccGFyfXtccnRmMVxz u6LqE5OwVfNzAVsutgAxNK AsLueyqexnSYRfTLT9hrVd VPCkNOiuUCYdUZccDp7jkV PbuMabFbKkQJGiq5dbiaBC SCvdHnGzA791GORdOCdpl8 xdj1NiWERyuOGdd5B0PSNZ pymzrZn5d6nnLcSkQsH2oY ObZGauM2xrebObeJZtS3Ak uWVhpNp9zJwvX08nc8D3Or xiE2ffEMRnGZEbS3WoVK6b GUVyWch4QQU4NAM0YFKpBY AmC8SlWY3sQQWlxAFgBIp2 u0vbgVzwSZPfOZC5n0jkJI uihyQ9NE9cnp9kiUi2t3ar czEgRGVmYXVsdCBQYXJhZ3 LqiIhjKn9qkFl1gFjwGcrb YSV2Fig4EF2oio60azy4rK wvQOUosiydChU9BGvwIKIj irzuDFv0HBenHSRraEB8YQ WpjWFxQ6FjJLRtAN5peff2 BVN4SOeaJAPlMaP6KNSyxT CiEFJjkQbhUHlgw138KXM0 ZcUyCG5aV1Fjm6Z3kI2egX YfFXLwhWLxEnTgFRQnzg1u bLNxOXohf7GnZSE1snB0yE CyaPDmVPOrQE70Qrina0Qy UplcZDZ1FTXkovDzt1Gew9 vpDgVqqxGwL0fqX3XiCSWm PMLwUTSoNoCgqaCir9Ytz6 AghGSweUq2w0pqCFEbDAGk yYlfo4oyKBR3QWBgD3A7zK Zev2zwDWzoPWVqnGC0exQ4 VLZepARfY3DfyW3qCGDsTW 4zrse5n6rpKOW4OLsvGDDj YlA1llJ8CPHqoYDwVJIpnR izVRdhm954PEK9SfMkPGSw t2TmF9TmqMenE15caYrwO1 3pZHOquIxhtX3kkSotkJ7n ZjBcZnMyNFxxbFxwbGFpbl xmMVxmczIwXGxhbmcxMDMz VStjB6afQyAhLVVktIpcUX tzk5XuNALvMAIkDyigdwLg XHBhciBJIGhhdmUgcGVyc2 9uYWxseSByZXZpZXdlZCBh zInsw7PjX4ivZJ0jY5GrbN SlsmHdpyDmJLlcKOPio7w7 xHDjxZktm4YbyGSeRE76ny PjKIKvYEL2AQTso2zaIL50 pytcJhBvfV53vdVycyMpRW Wxy1maC0qgdPVqn3Tik6Sk aiMwGYfzd0QuUI0awBUlcw xryWR9POSwxWYjlpGemtW6 dMybKHIkhL8usV4xeEzkbE 1cZvUaQcUqPCgbCH2wGGRd D1zerRArWUWmXPTzX5adZe PnpS8hiKsqAkfgdoZ3HFFl cn19 Clinical Information (test code = [id number]) Shivani Schuler is a 47 year old female with IDA1. Gastric polyp x 6 r/o adenoma2.Duodenal Bx, r/o Celiac disease 3. Gastric Bx r/o HPylori Gross Description (test code = [id number]) t9hsmJVrYDPwgQERMDH8TL KnPC8ewNiekYt6dLijAWUo mcE9eXRwYCrde2bwROU5x6 xjalZPIhlsVVPcRC7zBZys LYPjYU7jFvJvKJMzWvAkNZ BhcGVydzEyMjQwXHBhcGVy tYL3YHSzKB5apwfdGVgpNU joSQYycnN0RDXpoLCoS0Cm ZHTcBA8mgogdQBG0HYYGIk fkQb8wkCQikQwhXuYdLuRy YXJzZXQwXGZuaWwgQXJpYW f7tK4PZramZGI0TSEYSydg UswylFphn4MgqYBaURIpRK xcaWQgNTEwMDAgXFxkYiBP AlRdLiG3Rsy2BGV0DjO8EF e2KJCQPGXcHjslKEC2BlA4 UCq0OFZeWC0aJQemxHUhJU ltBtfaSBecT192FFxjMLDv J0KmY0WzTApwRiXwELfkZC RcMQHgPLojCDFtY8VGPWQb DQQ0FyFoPTWoFNl1KIyuY5 FROULkENSmYkA8PFShRiX5 JNc9IYKKTu4kDRgvLyVaMQ a1VAU6NTs7PoNzCFXcVzCc WPYoUGRwVVfanMDnMV1swS vpYTDbAV4NQLPjTRtlWNZq TuAjN1BCQ4tISC9mXOjyxT JjaFxmczIyXHBhciANClxw MYXpOY5TZWRwNBxtSAs0fa LnDPNzKdHtJORtH55vk0HA w6MfTR0OMYd2lxGrrmwtvU 5eGOTmagDuRReFoOOrlY7s msWIKGghJQWuJ9XqjoAgUZ gjAQOhlu6vqAzoWGspJwFb bGVkIHdpdGggdGhlIHBhdG pcuoMcD1F3kkMjHQ3uXVCD EWYfmU7pBQIaCEFmb7RmxH PvfJbcY5AvkQRjGbUur3d6 dPN8STBhpdPcVZWkwKWeKY Fxtg6uQRrwLnQnN2S1WZWt FSXtm75qyMC7cdBaBfKbaZ c5zUPnPMM9ZR9hvFlvkfJd b9b3dN3gBSMul9L1VGQkh7 L2FRCgbqKkzKWnzAQkDDHc BV6zhxJrZD24NPUsPGxxIY paRST6TUN7BZOycAAsd5cw kyzpXy2vHMunJJ6lYVnsOE 61NVLgGGaqNRYgR4UmH7F1 VOcuZATpTNSwgZFksA9nfd HcfaHmlOy0TCNbSDU5dIUz wEhcJTZmFkcxjRB1NMTgAz GawoAmh5QqoTz9cTCfCKkb YUCkwY7wtT1kRSZdNQEaad YSPmqgSBCrNDvxu3LhSKrg cGljWHNhMzAgDQpcZXBpY0 7dv4NHp9Dmb4xhiZiqq1Pq dEZfSR5rcCBtIW1Eo9lvKG OgkUIaRJZ8SGwsb6dpVUto DBB3DVTcNaWqBKCdAY0UOk OxIJcrZZi0HWrrVDq9ULx8 WO0NAhTgHDBtMap5SxJ1Ub FiBDe1MNihOE8KZVJ4EEFc LAJdHVklVYL1BYZmOZo9LB IgXFxzcyAzIFxcZmwgXFxu F55xsUDmYUadKxFlWGhgqM fkYGNjTNL4NH0PYZRnStOh N7VUU6mPBO9zZwnpyuYpYK HpyiDIZhyoIBZwRZ4RLWZl PRlkLCl6cqFyHTVaQoZdYU NuT09am3ZWd9LqLX8DOIl7 qeOatvbxyQ3zNNMmfuDnx8 IzMFxlcGljWHNiMzAgDQpT kTXkeK5mgbCYOLdnOEWuX5 WpjjSiYTfhBLLtky3qjMpr IGxhYmVsbGVkIHdpdGggdG grCENieGgytyDyJ3D3dnSn TF7wMWFRWLWhgT9jRJWjEP BsOTLaMBDjuU9uMPR6u8Ak inRbXTMCUDZmrGbrIY24yU BjZWxpYWMgZGlzZWFzZSBh sdRzdhDop28ofvHex2YqJX 9owYlmYVeMXSajCqVmVQ2d LHDjsbTan8SbSJ9iYKJkhB FzOMHwruqwoMRdERu5dDUt XGDmDkTsxDjgo2LvZTMxRO qdMF45nhTbKF1tRAbpIU6c SHojRJ3mBLDuCVQwDQXqJf CjwDZzUtMezQWqGyQbW73r HqYPcWHjl9MkK7saRD0haN VcLgcqhRXbXWPdqXqnn5Ik lEDwJUOyj7MgoCVoTOhuAR 1yOTW4Cl9arJJrKOIuhnH7 w6XcQGhbBGZxZdwnIAGcCU jpe9OoXPSuhTLKs3BkHF7X XHBhciANClxzYTMwXGVwaW OOd8JyKVBWRpbvvEzwGvDj zWHhOtL3WJWodREaLVL2DM 0dsYwyYRGhUKb9XNzqIDEp P2RqF0OhPWtmZzMkTDyyNU VtLFHfIQmfUIRrL0BIYJAr OSF2VkStWUIaOPy7EWxpG3 USEAEuLMEyVaB4NDR0HkC4 ZAg5RXXWOm1bURlxAbUoSH XyLcM7FEj4HqVcLZMwZaOt LKOeZGGcUBdtxRDcKS1hyR asAFQtODRcJDF4IFKniWXX v9XoTUCqPZsqKnDyKYNTXM SRLO3AOiAZYBVoIqCgeAJc SM6CUQGnxwGiKCfgpEmpbU 7pwNJvG4ehSuYxSbmvrVjx TmVzdERvYzEgDQpcbHRycG FyXGxpbjBccmluMFxzYjMw ZDYwcXWDd9LlACRJLwQkPI NpbWVuIEMgaXMgcmVjZWl2 OKUlcC3dYi8yoIYbhQ2xnI OyIRqlZYRdo6h9tKF4wSVk mXJ6cVWbqVatRzAyEK8bqU LkDTILBX14tLYfqyJqGOCr rE0gNAArTLJnKXT9vpsyMM DEWPR2aCJtp2Q6EQfdHLT3 oL6kmOmkUmKyH6I9IGGfOY Tjf28kgLW6ztTbTuQbEMYt qk3faC9jAUbeivKurHppkd Mnw8H2ELEwk6S9OQQurpHr kBTlwOAaPHYmPoW7CHJwAp Z8WYEaQVFwjYLpYKUaNN1z VGhlIHNwZWNpbWVuIGlzIG HyyEGlsvNwMRNyez64Y9uc PIYiqN1pg1wiCbQkHRRrRM YapQUqjOY8HIDnkF9aqG05 vaGwbxVXBR1dpPMlRL5GJQ NiMFxlcGljWHNiMCANClxw SAHwJXnwx3NeKJxulWyiDI XtWuOeZLdQgMsrCUJVF0zp hWXiTLehJBDHIGtBT9XUWD 2OCQFhqBXVLVD6EE8cNHtt CQDmI8HcE0IhfeS7x8rcsC tjd6QaaXPmOY4zbIQwQA0S XHBhcmQgDQp9 Disclaimer (test code = [id number]) c4cfzZAcUIHxb1eaSCBkzG FuZzEwMzNcZnRuYmpcdWMx SLfgywZyHXmqz0GgY4IlTt AwMFxhbnNpXGRlZmxhbmcx PBSbFXS2adUrJTTwSHfiJE FbZHzrMp8tqHGbgAoeMaZe HZXsa9jmcoYKHOsdCfCoS2 22WPLyMGvwi4rlj5YfBMSy xLCly6I2EQEGgdkynRx0uY goN38ru9U7HjhkL2nlGXAq UZGfZ8WvAB4zCPDcJsa4XV D5TBQ3GUAoYGOvQ2YzCS9a TOFfvPCuDIa2v5qvzEugCW ZlFSF1y2bbBQldisVyPD6v wo5msCy1y1ljvlCpYCQzHV CrxKSZXEFsM9YgjMykDl3i yXl0zStbSjntMVR0Mcc6NJ 5yjk53ufa7fZspVAUpjdzh TjI7KMwfMAJpmizkMGq8JU uoMETsqLB1TQHwtNRgV7Rl BFLjOM7qnry6XYT0NCvsVT BnUvC5MZWiqDHhSLGkgKnb PVjuc845EPI1WnEtBN0xU5 Oiq7O6yD6xxFUiRDHcpHRd KuUbOVCymk1yvBMiYKtxy0 PpDDM1haF2eTVskSOuAHLf MS05Jeyqx1EqSlmgh2RiX7 3wdAU2OSwnt1pwAB1sLpA5 gsIhQNmue2naaJ7fJoZ6LU qhYE3pBK2hGRAauX2phmdq XHBnYnJkcmhlYWRccGdicm YrTy4bjEbeVQY1QHwuH0yr gI6tDxA5XFnvU2vjqA4sKF y3WSwcdFU3ZXXgvB1uFM5z xmtmz2ylCTzjXPaqNLUgjl X4rvT5JOWtbACqC0YjfA3m WTBcWB6mmfbtk1deHVY0EO obQTOzSEO8QnVmSULiw8Ud sfq2KuWpq5CxhASeNVabG9 5sm852MKQihgSbZ3vmfJLk qrifuHAssxknMAhidcR2KI EppyRyv4JdUWHiXTL6CSkp GUbkcAAdETYfdJdrt4vyC7 RscGFyXHBsYWluXGYxXGZz MjBcbGFuZzEwMzNcaGljaF qeQOdiFeOyCENkMSslA1jz HjCcI0IfVKGkLxRimIVyF3 ggVGhpcyByZXBvcnQgbWF5 AYxyG1g4QDUsihPxcXu7yg UsJtLsCKCaSDG3WIaazJAk DDWut8PpztxdpRCeOg6wrO QyMGNhqH9eDWHmHSYcZPke WB9wnBn9QBUIbIDkgRUmBx WJPWBuMG28esQaEFFRdzie p6H5LOcqNESey4TkoSKfA7 zov9CtFPXzs92zUP0hk7Z6 w9kuHEK7EX0vm0OxMELpgY AiuYZpFGNrh2Firlqzn0Kz YEQrhxGvk8GfZPVzwdMvuE QoNJEuqvCnhe8abgThPDYb IJHrH5FoayshcTopvuXvOZ Akih0eibYdRVR0ZHOWNIIj AJPnl6InnI1tmLSXCLP4oY Iuyk5thiGTaAHsTFNkno33 RSAwRT4rH9obNPYuEYEoqq ItlPNhk9VzWZBhgFN9tZUo XI4QUfTQw56mAYOlBFITkt DrGZSrkLxaySV0xkQ8xP8w IChGREEpLlx+IFRoZSBGRE QhXV2mpcKlf4MnfjPfjTlj JJBwkMFys8DjyFWhw9OhiU mrk0VqbKUuaZWhTX7pLAFh clxwYXIgVVRNQiBMYWJvcm T1h2DyJYCkHDSrFRZ1yDhe twb7DOPhyR9bIZNzQ8zbpw bnVIrvKQPqu9RbbC8tsZCK kAZwm3VilPJkbIGGzWKsUI 2pfcTiDAbKLAkPZHS0thSx CMCkr4WlNWazD2jsS16kfY dhpVn9dKC7NCB7tY8gLcn+ IFxwYXJccGFyIEFwcHJvcH XtXVKynFtqowSoZ0GhwfSc tV8xfIRrjlHgMV0sBE1lM1 M7cVVtYIBikrNxz3wsFFvl dmUgYmVlbiByZXZpZXdlZC Jvw2KfWRpeMXF4QRfhscNm bmNsdWRpbmcgSCZFLCBTcG RpsRZqNKV2QOfohfRwbzQo DB6nkM7pbWrqiM5wxXPjjH E4vfwgWVYkPREqwMvtWLGs AV5xdVkydD2xNwKoKsNxRH eiZY7zYVXqC4bluCAqWVJv EHWqH9bzZtBalQ8gvBdzZN xjZjJcZnMyMFxwYXJccGFy XHBsYWluXGYxXGZzMjBcbG FuZzEwMzNcaGljaFxmMVxk OdOuWUQfZHlaE4vlAkOkP4 OzNAKnAqQzyVMaJ4ztYHpw YUU2NQTwGM4qcQHuLJ41pN Wea8hpJEuuaFpwgw7sP36g lYMoTQdiyAqtVAXrx78rc3 SkVFMmaiSfae4nGOZsraU8 gU0tTCJqzYvrEBKgpSFnAR Hnd4CuYVmqxMVbqiTqAKet KFFsLJZtcZLujsU4luAdvn IsdzVbHRHwnPtmXAKug5Zj VKTuWQsxw1Qcyn2bsDWnGF FtoqPWcPxvdIJrcI1mU6Dq MWSkABNtnj2mNMHtlO1uTX peh2VmqqcmQJKyWQYzDIAw nkFyet1rYUHrvNTTOG0CPW zefNMmv1VkvvFeS8dLGPA0 NUQwNjYwMjgxKSBleGNlcH SvIAJyra87GVPrgV0koAxz VFKagO5pjE1jcEwxhI6nEv DkPmPsUMojOX9fECJeS3gt nPVzUBQgWUUlD1hjUoBktK 9jaFxmMVxjZjJcZnMyMFxw YXJ9fQ== Embedded Images (test code = [id number]) [facility] [id number] 19:23:05* Test Item Value Reference Range Interpretation Comme nts Case Report (test code = [id number]) Surgical Pathology ?Case: [id number] ? Authorizing Provider: ?Dominic Keita MD ? [...] HPylori ? Final Diagnosis (test code = [id number]) n2smzNDyUIIfc4hnOEHtaQ FuZzEwMzNcZnRuYmpcdWMx QVtwraNvYVhieGoqTOX0PO WdMS6heJgecZr7fUypKDYj qxU3aZCxAVcjs6fxYVK9y7 mjupyeHOFfRMucWw2aqOYl fMmdLdWzWSOuVZs8gJ49NJ ScxP9yhWVkBIt9AMOrsLYe ieHiBpEeGUVztFPotBD9JE JfJT6nyqjgGIltMUjfORUm pbF4OIEtlUNcY4PbHKMhLR 4rphezOKN0KFmdGJVxCZJ9 SzRjREXbw6Lexxy8FhJjmW FyZFxwbGFpblxmczIwXHBh inDMHqNYFF8IPQHKCDLPT4 eOSCDYDY0WRFXKOhsneCKy YRMoEKAzMPHSQA8BWSOqU4 rZKlEyCH8EVLMjJIAmeTBy GNIkydCZDqJKFW5QVK9JNT wgQklPUFNZOlxwYXIgICAg ABBhHXbZF2YDIVYvVTRJY3 ZVQWmEQTzaSm4hEMZCWO4C R9dKY4VEIMJHUE3UHCabDH KwMFFuSUMrPY6JQGlhVTQE BT2JHMYYJKHGFGjWSUNPEG TFSWuHTZVFV3SMNXjTYNBy matrHIKgXe0kR1RAPHDQVI wgQklPUFNZOlxwYXIgICAg DTVbWCTCJ9XPBvVXRW2JV2 1VTELJCXJJJP3SUVYSTTfI LI6MBWGPKYLVKCWDG6NdtM FyICAgICAgLSBOTyBFVklE UV5NWUSJCbOQWDqELEZgQM lTRUFTRVxwYXIgICAgICAt IH9OEHocWSWUIY3CHRJYSm dBTklTTVMgSURFTlRJRklF YRPULRTTAT0VCv2IDTNCBi xwYXJccGFyfXtccnRmMVxz w4DqT5EyYaSkTRiiwqHvXY VqKmipvcyrPBHqHCS7pnDb SSYzHDiqGQDoTGgiLd4nrA ZztHtuYaJmYDRhj5ewgvEH CCfbUdLbQ714ZPBaQMybg4 rdf8LrUYDciCUtc5B4ZBDU gksmuKs2i6ggOwQlLmG0hR XbPBgzI3kcgcSeuGXxE4Qc lWCsmWy8yVttU71gp6Q8Yh xnA7lhSFIuWJXeH0XrZY7z SIMiEbc5PQP0XGC3XGNpPI OjF8DcMJ9aOOWtxIIoKAl5 o8zyaUcaPAPrALJ7f8ntHG rzerT7HH0okq0xfRe5g7tx czEgRGVmYXVsdCBQYXJhZ3 XvxWtpCt5lmPk6qDadVkuc OQD4Jtj1KJ6wne85upy6nI zyFMDgampbAaG4WGvbQFMh amhbCPi2YCotCPAycXI0QU CjbPWzZ8AyNUDgYI2pnan4 WFP2OWlzDTGdRsS8ASLsuC TgNTBaxGhuJVnde807QSP5 EfMbQT6aM1Jmx3Z7nC0yhD YxOPJwaFVaVmZiCOZtce7f lAHoAIfax6DcEUV9roA0yP FouGLrLJLjVY83Tazqf0Xv OfuhTIH6JBFqudQbp3Cxs0 zdZsTaqlZpP4onA9BoUEXz HBWrSROyBmLltqWae0Wos3 BlePOmzSb6z0moMHQbFODv yXlvf2ezOKH5WQXtD6E9qQ Ufo0uiGXgqLYSoaKJ8qxC1 FFUhqIWfU4NrmH3lRWVoVG 2hrjl4a8lbOGF4BTmsCKCy CoG6gdJ9PFUpbDTtIEUwjZ knUZsnz777UGR3BaZbFLRe p0CiL6CjdFigK28qxPhcN9 3tGLYliLvdfM0nfRmdsH2j ZjBcZnMyNFxxbFxwbGFpbl xmMVxmczIwXGxhbmcxMDMz WAztB2hgJiAqUTRhqFrqYY wmc6TsZXOyBPYvPdglijUb XHBhciBJIGhhdmUgcGVyc2 9uYWxseSByZXZpZXdlZCBh eBufa2RvZ6drZO5bG9SptX OxgyZiqfPhTJddIABdj5p0 aZAekTwis4DgrMCtAE04nh QwMKDyKRO7UUEkq3utWH97 vrmwOjUpfS72haFcjbJpKM Iai2fgY0ekyTCtr1Ahy4Gx vpMmRXuss2ZcWT9mjJKkrd xfkAU2FUOgfIDasrBwuhH1 aEwjJRSgcI2ohT8ieOftwA 2fLtJyPvExNRabAK0tLRDg G6imnTTuSTZdCZLtH2njAs OwuQ9jmRvwUrvjpxN5JPIb cn19 Clinical Information (test code = [id number]) Shivani Schuler is a 47 year old female with IDA1. Gastric polyp x 6 r/o adenoma2.Duodenal Bx, r/o Celiac disease 3. Gastric Bx r/o HPylori Gross Description (test code = [id number]) p3emfDHtWWIucFXHLYT8KE MeRM9baRuoxQy9oHanJPJs upO9hLAkYWymu8ouYDR9m2 jilwMFTydwBAPjYI0gSAyh FFEyQO8dQqHbTQWiJqSuFJ BhcGVydzEyMjQwXHBhcGVy zLM2AKXhPD3epejwJEsmKT mxGHOqxbH4JEMyxYBqJ5Yy CRAuIW4waorgKHK8MVKOBt bzEw0guPXthWbvIhKhXmZh YXJzZXQwXGZuaWwgQXJpYW e5fZ1FHzlzBZR3JMLKXvrp YnpoqNlsa3UczJSdQPCkIG xcaWQgNTEwMDAgXFxkYiBP SeFxUwL7Udm0LQB1XlI5MQ a5VCWSZLIdOmfsRZS5NkJ1 PAu5DKPbGY9cMLaatTBwJY hzCuafVOrrX847JVcmWLZe C7KpR1WeTKtaKdOgXCcwXH AwOTFvSOrpVGPyO8TELNKs EBS2UaXtGGPmYNf5QEnpL6 PBHVNyIINgCbA1YTHeJhO7 BXj3BOYIWo8gSBnqEmWeAW u2WKX3RYn2BgEtOMUsCfSf QCYqCDUoDPehkEXwGY3uoP tkZQXnKR5WPCCkWYbhZCSa OgOmA6TZJ5zCOC5iFFhghT JjaFxmczIyXHBhciANClxw YPUqQX1FEZDaLPulQDe7ov LoUWLcMqNoDJPdF53lf1CS b4TwPS0UZYc9byUeypxddI 3dHOMnkmOrXYnOvFOobL6i rvLLFWfaLKAdU3BcdoZgMA nqUWScsv2ggCtxBJaaJgOi bGVkIHdpdGggdGhlIHBhdG agwkDwN9X4hzNzXP4eDZFS NNBadK4qMBMtNBYea3ZjrA DcpIeuO7EbhXJvCoKyf6d5 rNX9MLKbbhVvUMGssUWpJQ Rjod7iZVhdXkIcT4B2XUZx KZXrk23dbHG9dcLiToChlX b3lGKnLHZ8XK7rbIvlwbLh w5p3sO6eOKNul9H7ZQYyc7 J2APVjibStdYDmhVDhTPBh JZ1ufrYnTY93VRIgNUxaZY juZSZ2CYF6KRAneJGao4ri oxkzWb5kRMovPD3mLDrhDM 12UIKeEVcbXZIkY2JxQ9M1 IWgrNNTdUXOviUMjoZ0ylk VpyhBzdFp3FHKqECE7qOUw dIiuSRFgDifgnKF9ZKOqMf YtlcPqv0OueGc3tPWzJDhg SKYzhB7ksK7cVTKuGFDoyo YQIakzFMFxWOxyo5YjBLhm cGljWHNhMzAgDQpcZXBpY0 6qj8BBa3Uyk9ixmHjcv8Cp oNGvQR2gdUCrWS4Gv4pkPY EeiUBzCSX7IOzrm0hpOIlo DJO0TKGtEqEiWXBdWO2HId JaREzuVBq2NScwVWo5BKd5 XG7PGiGzDMPvHje2WvM8Cu ApUXl5KTpbRI8OLGJ8BGXw QHJePHmxRDY4QGWnAEt2ZU IgXFxzcyAzIFxcZmwgXFxu U69deERkYKnmPjChBDqabW ryEDRjADB4IZ5IXMIuOgIx Q4CBC2nAYM7xYuiaelGhEQ IuinFIFcrpWIFfGL4RLBIe JGvsNOh4bfMyEJDaCxZaAV XyK76oe0SSs4RmQF7CJEk5 gxMzpstncR9mNAQjmyRgh8 IzMFxlcGljWHNiMzAgDQpT vFEimX3frnNNWGtyLITrL7 RallRpPUjfWFUuze5fxRlf IGxhYmVsbGVkIHdpdGggdG xrOZZsoOgzqyMhC3G8tcQn GD4tGKBRZOUebQ9wYJHaIH RwXHSjAOPueX7cUBB5n4Hl yjApODLTBWTcjVzlXW78rO BjZWxpYWMgZGlzZWFzZSBh tpLqzkKmo29bsoYxd5CrZG 9snYocAHoOHOsfSzPvUN5b EDWegkRav8WnVJ7aTPCnyH YrZHEgmwciuQHgRPv7gZWa KVPtJgOfwPzaz8KdBNPoCV hnJQ46pxWjBL7cEHuwDQ2q JTucCP1bXYZrLLWzPWUmOl YiiXVlRrLceQEzAnEuV60i XrTUmQDfs6ZwB7dvJE0ieZ DySbebiBOqPTUhrIajp3Ng iGByELOph6ZfzTWkSKktWR 3zOHT8Zh7slIZpORHckoC3 n1JfEZfbNZKjGqjeTHXnSK wmx3VgGBOxcDBDe0QuRG8Q XHBhciANClxzYTMwXGVwaW DRr1IqSDPQLuekcJghSfAq xLCuXpK2UIHqdIZhHWS7SA 8zwKyzJJMoDEk1MTkbNUXt X5HfY2PnRSwqWjYrKMauEL UpWQJrLPjtBIWxN0XPIYCn ULZ3DmSjHWBwTKs9DCcxP9 ZKNWSjCQVaCyS7BCC0WfN0 ZCr9SPJXRp9iCSabMzChFP UkKeD8PJy7EqZbUSPoMqHl MAUwDIHgDToopMDjZZ7xmH eaOBVcDZSwZKM4DHRxvGYB z0GtYMKiJRalFpNeHTTZXS QKRY8TYtMWQZHsQnByiJVu RM8KRWCiuqBrPXpayGeeaK 2jaGBfQ3mgOsOnRllqiLhf TmVzdERvYzEgDQpcbHRycG FyXGxpbjBccmluMFxzYjMw WATigQRWu3LaCZAUZyKoZL NpbWVuIEMgaXMgcmVjZWl2 UZEubT7jHi6acQQslA3miE QwEQnpZOSca1f7uIU1cSHu cDO5yZFrtCimLkPzDM5usK TdEQMGDB42cKPlzpAfINJc yS1oTTCqTHGbWBJ4wyulAI FYYES3uCVgi3W3XSjqHZO0 mH5ulXrlLgFrA4E3ARGjKX Ggw04bzMS3ubJeMuSzBECn cr4cwW6hEUgptqEsiXwiws Iqz9K0QXAoq4A2UMLcbfLu iKUcwXTfALShGuX3QKLsUy D0VMIjCZFaqCQlLNHeHQ9a VGhlIHNwZWNpbWVuIGlzIG YwaLDwmrFvPBCyoa29K5ts SFAriT0gw3syPrTnQMPfWW JijYDjvIS6OQPhgJ4ejL71 kyQulfKXES9fmFPnXH3DIW NiMFxlcGljWHNiMCANClxw LOOiUWfem0UaZLwhsDysBT UhRxYzYYcWbNjzFXGCR9vy vLZdVUkaKSZKTArHK2YBGW 4RLEFdyYJWKSH4MY0yMQuf WSWeA2StD4AhuhN5s3aivH igc5IghCWpCW3blZPlHI5E XHBhcmQgDQp9 Disclaimer (test code = [id number]) o2fbrQTmHJAue5jbARGucJ FuZzEwMzNcZnRuYmpcdWMx KCeerzAmHQjdl6GqG5ZrPf AwMFxhbnNpXGRlZmxhbmcx OYKeOMF6whGvHJMyHYipFU NxQUlbTb8kiFTvdXifRlBt KTEpm5jgtpSWIMyaQsMnH8 29CIAcZBlnp5knd0IpGWJc pJOcp8V6UPDOjdrzxRs9wY voX16ah9T4HokiU6dzDNRj JKGcJ1DxFR7gUZRjJaw5KM U8ONG5QMScQIDoT8LnSK0t HBBgfBCnRVn2m1nbxTbhFP NfZOZ7r9suJBiwrnNsRH3d ia8gqLt6r4bwjdExXPNoTN DqdHIVLMOgM2JhbPrjQh7n vTu0dWnwYsqlLIG5Xph1PB 0gbd46yqf8qUjuRMAgskms DwQ8RVnePFTnyfsgDDo6XE bpDQXjnRJ9VREzrMNuS9Ql SSNjZE7zkee1FPV3GMcmCO UjYjX2JFGtoLUjOETnzOwa CAmrv051NYS9EnUsOC5yK4 Rvm5C3lF2whYLcREOkuLTc OwWhWZJjfq4ucAErNYusu5 ZlTBH9izW5kYJzhYEzGAGl SE60Opkee5AmTuwkm5SiL2 7yjOY3YZyzb7cmGH4aRtR6 heEaGQifa1bicB7cJwM7HL lpOU0tCY9qTFUbgF0ydgwh XHBnYnJkcmhlYWRccGdicm SlAn1krTupQEZ9TLwrR4cl oS0bYbM8IRewF3qqpI2mQD u3NSantDO0ELQqgZ0xEB9n mpvgr1rzHXjkMAvzSIOcbw C5hvI2ACMafBKrC9JxdM1i AKSzQX6cqrafi9blBGZ4NE oeXCBjLVN2QmHjMNLvu8Az jaw6CaTvz9RdxPCrPDqdU5 1ic080TJLpdoDwR5bwqAJz imbcsWDttevqOVonsjH2PP JpynGyw2PkQLVtQHI3VJzw BUzugKZrIHYhpSeol9qrL1 RscGFyXHBsYWluXGYxXGZz MjBcbGFuZzEwMzNcaGljaF dmNEldKpRjLWMqICenG1om WyQnF3YqOGQpVjQysIPrU0 ggVGhpcyByZXBvcnQgbWF5 DEgpK9l1LYRdsxVasAa5jy JcWuZjSNLrUQF6HXpwdERy CLVtn1ZatgsbfYCsGo6dwH XzPOYdgX8qPVFbAICcVRwu WD5fbRm2GNEAnTAwnEZbBr QHWQZdEH17wkCpELGAztpe j6M2STrsQOAmf0ParFUaF4 ujj1ThQJHcg48jVM4mo9J6 h8vbQWL2VT5dx8WzTIIltY WpkQEjMJKhw1Gigvpmi3Gm HAFwqpEyq7UxJEWdzeHviD YvPAJevvSshb2kodStQCMq EYSuM1HjnbzuuCxdofDmRZ Ediw9svwZjTIG8MEYTKVQk KVIak1QlxF8izQYCAPO1kN Glxz2cacNCtWWdIAKpwf28 WIOyVH9cJ6dkYONrCPItui TptMFba5ZgOUSqaMF2fXWq XZ2WTwYLd22eJEUsCABKpn HuOVBwbIptgUE7caP1dE3c IChGREEpLlx+IFRoZSBGRE NmBF5zfwRtu9IsxpEdgGzi SXVcpALgy3EdpJVso3NdfI tbe1WfkHSorPWxQZ0eIYVu clxwYXIgVVRNQiBMYWJvcm U6b1KhOKSkWQAsGXG6sWvg mud9AOHwgD4vQXJjV1kmbh ndDYlnWTVzh8YqlR2ifVGB wKGwf8TqtQQpiGAReUGjAR 3klcDeVDlPQYrSIIN7cgKd LFSyd8RnHOwlG4zpI44tyN jqqFg7iPN1RER4eY3zYnb+ IFxwYXJccGFyIEFwcHJvcH WxYEXfrVapsqDfM8GwuvSa xJ3uxQMsqwKiUG3vQU5zX7 I2vFPnNCWezlTbl4wtYSba dmUgYmVlbiByZXZpZXdlZC Zng4RyXBijEMR0QAvpbnFv bmNsdWRpbmcgSCZFLCBTcG VtvXMyDYZ0WKfvbzSqvjKd OY3hnI7wqHlolD1dgUFrcX N4qlkvYCCwBMNnbCutPPJk MT1ydGfenI6wYtNtXxBkIP rdCH7aFFKxU0ndwZJeEAXh PCTtA1yjVdVlgD0vmUuhGO xjZjJcZnMyMFxwYXJccGFy XHBsYWluXGYxXGZzMjBcbG FuZzEwMzNcaGljaFxmMVxk RgScZSWwMPsoS2nhMkXcA0 SmMWYnSnGjcTHgL0suHSya DIO0MQWbHM8haOLeOJ89cD Zlb9dsFXcfdBpazz5xY72f gNDiRIlgxWtwHNSrd63fw8 DaHPIigvKdxx9bCEEqwsF8 eM5cIDRbiUppYXAwxCKlOM Svg4HkZWisuSSojtYzRGew RNZkXXDuhPFzolE4ksCogr BopqRlEECtrGbsHELyi7Be EJVqEXtle7Pgey1dfUXfBZ AqnyCKxKyudCWxdH7tF3Md BXRjONWwip9lHCQjfX4bSR obp4OrpjycHWNwBKGxVKBy pdGqfq5aFVJbtXOUAN5LWW tzdLJzw6RxyjZbX5fUGAU2 NUQwNjYwMjgxKSBleGNlcH SyFDJqhz22LPOhsI4dqLwc EFKcnP2qyI7fsWsnhJ4oAt KtCyDjEUqtNZ8nQWGcS0fc yQRqJJWkOAOkA9gzDiElcY 9jaFxmMVxjZjJcZnMyMFxw YXJ9fQ== Embedded Images (test code = [id number]) [facility] [id number] 19:23:05* Test Item Value Reference Range Interpretation Comme nts Case Report (test code = [id number]) Surgical Pathology ?Case: [id number] ? Authorizing Provider: ?Dominic Keita MD ? [...] HPylori ? Final Diagnosis (test code = [id number]) n8zujFClZWRon1ovDPUvoE FuZzEwMzNcZnRuYmpcdWMx CPdbkvQaQIzqzGrsEUM9NZ PoFA9nkFastOb1xSqqGACq vkH6xBEcXLvto8zgBUS9v2 krqhzmIRMyQTxgZs1yeCQn iSasXcAdSQQqUWf9kL02DR QrfR5hlDRcASy0VKSlgTGf nkXqYgJbBFFhxSZszXU1NL GkAK5uhwwjHSlnEYrhVQTa mtK3GBJpcDYqW7KyRPEfKO 5vpbcnROB2QWhvVROiIVX6 KgXuKLRjk0Ecydi7ErEudW FyZFxwbGFpblxmczIwXHBh tmZUTjNWTI8LBQBZMCGLU9 pIHKYHOO7KFLRTOemefEEf KVZhJUAhKSGPXZ2SAUUaQ3 nDIfGjGW4VKAIbHAFmpBGg TTFspnKBTuXHXW5GHQ8PWU wgQklPUFNZOlxwYXIgICAg HBLmVQtQP1KFNSKrUPTVI5 QGIBiCAEmbYm4oBUTIBJ3N C3qVN5DGMDXKZX4ZZQigAX OgNBDlMIHwHH4TVVucONUJ VK8WSVCKCTVGPVzVGBDUOM ULRAzZSPFYH5EUIHzZHJGq rewlIHIrFy5zC9QDEMOIIM wgQklPUFNZOlxwYXIgICAg TMLlZIGJJ9TTOlUCML5YK3 7HRVWQEVMBBH0CEIEJAVrW YU5GOYQJPNEKBZMJI2DhoN FyICAgICAgLSBOTyBFVklE NY4FGZUWRiDEHIhJJFGxRD lTRUFTRVxwYXIgICAgICAt WS2YOAgrPGYLKB9AWELXOp dBTklTTVMgSURFTlRJRklF LROXHBNRNT6OWj0IIANYLz xwYXJccGFyfXtccnRmMVxz n0OlG1HjZhLmULtqlkDvSX PgHgqkyeecOMNzFEI7axZc ILNhKXioZLCqFPorOz5etY YxaEjgBzOvOSVke1tuexPX OSytXzMdP061IFRjNYtms7 uoz7JsAJXiiUOtk6G7VPUU ntptzMn7f9jgNuRoGuF4vH FhTVcnI7svliMbdBUzO8Ul oWMqpFu3nJkjB68ie5V0Tw qcC3vnGPEvWNVeU1VxPP6p IWNyPsy8YEW9OFY7OQKlGG LfN3LdAF1oVHHctXLqTZs8 v5ptcTpdEDDnPZN4d7ehJP oiqwP1IS8hbi5dtGl1j5dv czEgRGVmYXVsdCBQYXJhZ3 MhwGinCs4cbNz3oUlbJyfq ATA5Fpt7EA1ogg88jai2qJ fyHNDcdxzlKzL6IXhgRWHh ehfsBYj6AVshZBIqaEA5DW RhsJSrC9ClXSYxFR4gjlw0 VIY2CNfoDFWzMlT2MULzhT XeOCOlwPfoPVamk111ACX7 PvIeJL4eF3Lfl1G6iD2mqS PgSOSimJXqEjMkSXRitk5y nDNpKFzep8WmVAB6uvU2pK NriEBvCXSkXM22Etbcn1Mh BrbnBHA2ZKTxelKvn4Frf9 akVpVoxuLtW6skK0UfLPXt VZNsYRZhHpGzgxLvl8Oya8 ZepLFghLh1m4eqAQArEIUu pKivx2cmGZU9NFAzA9S3qD Yyi2rxZJtjSCNgnTS7rwS2 JCZtvQQkJ5FlfK8xURKyHD 8atuh0w1fdVLF8JZhaXGGv AuQ0irI5IGVgdKVlGFQbvP qbOJska368SMS4WrNnSGZm u0QyP9AujNzxP46maNgtB5 1kRPVlhIlabP3reJjhaG0h ZjBcZnMyNFxxbFxwbGFpbl xmMVxmczIwXGxhbmcxMDMz PHhlA5nzDlJjGXThcImuFO ejl6YaAINzXENaGyhrzlDk XHBhciBJIGhhdmUgcGVyc2 9uYWxseSByZXZpZXdlZCBh gBkpi8VhQ4tsJI2oW6VzjO HubwSliaVfMXaxEMFtp7e2 xYLreIvnb4ItyTZdCZ02ra FtKQLrJGO5ORWdp4flAD65 jfdgNrTroP25znFlhkMbTL Rgd2xuZ9biaZFwq0Vst2Yz mkLnAWltc9TvSD3jcGSllz qqpMV3NFWwpTLicxCyfuT0 lKngDOZqxZ0qyZ4gvSyuoT 3mWeIgXmMiVKwsUR5yRFIc G3rxvOXbJFDxHCYfN3sqKx WrzI6ktYmcXyhbdmA0BMKn cn19 Clinical Information (test code = [id number]) Shivani Schuler is a 47 year old female with IDA1. Gastric polyp x 6 r/o adenoma2.Duodenal Bx, r/o Celiac disease 3. Gastric Bx r/o HPylori Gross Description (test code = [id number]) u8rxnVGkDGTuyLKLYTW6WM MmEW3dkCsynZq9mMcyOGAn ilV2kFCePXdcz3nhHDK5u9 lznwTALsbbGHIzDJ5kRGni OBIsDV5mJhJfLEFzImTyBT BhcGVydzEyMjQwXHBhcGVy sMW5ESEgMV6qgdwqAUoqZD otSMCnxwW0WFNzjZJjR9Tl TLSjFB1trpozPRJ6JPAIPo ihVh9rgUCgcZpqXeVcVsHl YXJzZXQwXGZuaWwgQXJpYW c6iD7OEekgCKL5PPPCErvc QpglpGbqc0ByxTXrFFTnMN xcaWQgNTEwMDAgXFxkYiBP RdHuRnY8Xmc2LZT1UwH4NZ d8AWSVMISzElswILE6HeK6 CRu9OSLuNY3vCXxyaUYkUB iiIsyqPPldW352OIneKLDq T0AiB7KwUDvyElPmFVhpWQ CvJVCzOXzvUEAeD2ZTGTXn OIT7VyDuHAHoLFt9UEvrY8 WFMZLuESOsIuL8FENoDuG4 OJq6XLOJCz9dGQfbQxEtJC l3GQY1WIx1OxVaKFWhOuDg CCTsVYPvDWqdwJGlYN7anM fcUQCmIX2KVFXrIXxdVEWe FrShM2IRI2iDCS8uOQezwR JjaFxmczIyXHBhciANClxw JGVsTZ0XSRSiEFimLTb6ws JgQDHeEsVfRQQuE01su4DZ x1JxIR6FPMz2dhIhfueobS 0bINVtucUeVOjSsNUnbM5x tyWVNDlvLEJxD1YswyVdLA nvGFSmlf3waRldIDopTuUe bGVkIHdpdGggdGhlIHBhdG lgqqJvH6Z6fyYgKI8gYLVE AXAsvO9sEDCuFIUrp1WqwN EcjZayV3QplBLdGqXqf3b2 jQF2NMJfzyHwDXVfmUUmJP Ayur6zSLntLiOfR7D6YLPu GAPzi33tcCW1hiLgBpYmaL l5kURtDIQ7IO3znIqwrkKd j1s9tR6dUGUgq4C5QUDnc2 U6XNDxwqPpgFMlgMIaEPGm KK7rmlXiFC07PVZdHQhdEM miXCK7ZPQ5VCIezFJjv8mt cfhaUh7yVSwgXV0yPSehRA 23AHJxFJpnKWFaX9IxZ2H3 QGenKDKdUBNkkXQnsX2kew WscePcvKp5TCJzXHC4kYPa mJgmOBIhUoibuGO2XVDxKn ItvoWes9CshJt1uCZxBVcq OYVilN0tgO9wJMFpPKSckn CWUstcSYPcHIlja1GjJKhk cGljWHNhMzAgDQpcZXBpY0 2tz7AUk7Tir9qfdFayp0Qb iAVrDT1pvPPwJX5Mp5ghXV LbuMJeEUY0HKwym9syJObk CBN7AIIaFhVyTEEpQE5IDw QhGPvrJKo9UAorSDn8OIv2 UY0SYfSgPLCuLhl8NhL4Zt NtUMd0SKaqOY6MDVI4GPHp RBDoTTpdFGW5KRIcGBt2FU IgXFxzcyAzIFxcZmwgXFxu C40niZKjOBjiBrToPCbipD kkJBAlPOA9KK2HZXJgYoFy R6WRZ2vTAU9jZdijyyRsNW UgmzLRUqujLYYcLC3FWMBi ACklDJi4oxXnJBBaVdLsXA CxX15ir7FBc2CqNJ6CWGb1 ncAdcmfabM7cMCUacvJbd1 IzMFxlcGljWHNiMzAgDQpT sLObpO4qsuKTKIxvNXCeR3 FcdcAbJAckSVTwko9prAwn IGxhYmVsbGVkIHdpdGggdG jkNIHotKtvkiAeR6B4akMd YQ5tLLLFMRBeiJ6rFHTcJX DvFKUmEHLcxV9yWWV2b7Dz dxBwCGTEFKIleIpmHN49iI BjZWxpYWMgZGlzZWFzZSBh ozBwkmUtt29vrkRym1ZkLM 2btVelTTePBNbyKpJyRX0u NTQxfvLrq3ZrSV4bKXZdoX ZcAXGixhccoQUkWRu8wESp YPHwZrKeuKawn5LgBHPaPD twLV93wkUyBD2eKTikXH6b JPspSP4uWXZyJVNvEZEhSe IqjWTfSgMcyCFqItOwD12a PgEXoDDyw5XnF1zhGI8xvX RfQnutmGAzPICdfXipw0Ma vCQvSOBkk6CadAIbORyvTZ 7iEBR6Sd4vlBMkQZDgrrM5 d4KfMHjqPNLaXfcoNCMnRG qft9JbOGSnjKRWf0JeUQ2R XHBhciANClxzYTMwXGVwaW TQe9OlWQNNZxddzNwrLuZl cAErRfS8HIVegIHrSKK2DF 1yiQjiHXXyBJm1YSqmWODb G3PaP2HySMhnHrHrXWycDA KaAMMiSYzyZXGlR9NPIJIk LEH2RiZcDUYbVOc1LNfeS4 ZTTFBkGCAjRaY8HJY4YpS2 GZn9QQOUZd2uDIvwDeTxBE CkZhU4TJv3FzEoNJTvMkWq QAYdLNAbRPhwfLJpZW6tnM ngDBJcZQMcMGJ4NYWozSCD g4FlLLZeCEjpMcHuRPVYGX EQJE5KMsURIIUeKrSgnSZd FF0NPBWmttFoZZyyiSsbjN 5jxYSfM1vyWmQhBptrkLwg TmVzdERvYzEgDQpcbHRycG FyXGxpbjBccmluMFxzYjMw TUCtvCKSy9PeKHLAGeCoMX NpbWVuIEMgaXMgcmVjZWl2 LEBeiW8wEt8ioHRhvZ5frZ TcSGqxTXUho4w1dCG3tJCy cLQ7yRHdiAraMwYsKD5mtR XoZLHQDM28bKVynrFuSVLi gJ7eLXYqTXIbLPT8lrntTJ ONCXS5zJDxi3O4TQitEBS4 aI1nnXnsQwAlL7I0UUQwZF Pqr06nwIR7wfNiMeBjESLv vb0syT2cIKtnexOcvEbzbn Rwa8R4KPYcq0Z2ZNVgwxVg vWFvnTFvNJXwCkG9SWXiDc V7XUTzZWEqjVOjGPFlMJ2f VGhlIHNwZWNpbWVuIGlzIG AilSFaxdCqLYRwgn02N7ya THTlvB5ns5ucEpSqMADcPF ZkqXEqnQP6AVDrbR7oxC63 yvVlreSCMQ8dsDAbVH9QFK NiMFxlcGljWHNiMCANClxw CEDeIFzqt3CfRZelcVumKM VxNcTbUFvXtUjvIJPXC3gh nIRyQYfeRQEJLTkOY4KUFE 4PLKUivQSFKEV1RX5zZHmt RMCnT7AsN9VnjvW9p3fuzE lcg5WdmOJrCJ2tvKXsPX8Z XHBhcmQgDQp9 Disclaimer (test code = [id number]) u5xirYWuDLZfn0xyHGUqfX FuZzEwMzNcZnRuYmpcdWMx GIeeyjRfMOlbj2ZvZ9YxEh AwMFxhbnNpXGRlZmxhbmcx YRXmGOO9hfVsTLLnIEvtSG QcUVliJw4nwACzuEdjGhIf IYIen7bdosNHKFtrTjSjB1 23FPQuMPxra1ioc3TrGSCj wWDud6D4IXEXpdzgqLy2dS fjB28lm1R9MvpdS7lbHBHi SPMyE9VqOY5hQRNyIzv3BJ B2MVI8JAHxGWJpA5RlOH4l HGIecQWhFQc1f1vplFcgMU HmSZC6o7ygGPqjnkIcOF9h xg2hwKz6i8xygmMtKODaDD BohCGJMSEcY7HyvYdnTu7o cMg6nDzeNctpQLQ0Pcw5AW 2zos37vln2qNdjNDAsvgdc TvW1ZYjcAHGlodihKWy9RV zkEHNdpHX6UMJuuDYcN5Jz HUIcCG7vvyq2QAI3KEovRM YdVkC9WCLbbXMbNMErhDft FCcok381TKA3RfWkYA4xZ7 Dil0L0jM5gpBVaGHPjfXYd GuLgZYRhwg5guSXzGHcfi4 SkEOJ3ngK4gOKoaOPnMNAu LT21Ujpdf2LnHubgb4OjW0 3snDN9TZbbv2stOD2xNkZ5 xsWnNYylo2tsdM0kQeZ4LP fsNW1xXA8fKSXdzX8rngxf XHBnYnJkcmhlYWRccGdicm IjMx1iySpvBVJ4YTxvL6sa nN1fSzN8AJmeU2xcqZ1tXS t8VMnntKO9ORLxvQ2eXT5f dkxkm9uiNUjoFHnnBTCtte W3ooN6KUYqsTHhV8ZxxQ2p CYOkBZ9qdbwjj6brYWY3WC crBOEdYDU8DbApKJLbp2Xw sbw9ZqKnm1WydZAtGXmiA3 0tn711CGKglvJnC4bskDCf dojcdPYtppduXTzflaW2CS WmyvZjd0MdSOHdNBT0YPvm FOfqzSZdOEXtvPjbn9llU4 RscGFyXHBsYWluXGYxXGZz MjBcbGFuZzEwMzNcaGljaF jnKYrmKcJyAOJjXZcyB1gr HiNxI6CePUXiTdFcfYZmU2 ggVGhpcyByZXBvcnQgbWF5 NShlB1r1FZXwxzNthIc2iv HpKoKqKJWkYJK3VIxhbQWc CSYrj5GqmmhohRTiYr0yqG WpTRZyfR4iDLIbPPVlXZwh CF1cpUp9NKORlPQsmEHkWm VWHOPzDH51jwEkWBNSegbg g8V7CIfdLXDpq1RpdLAeS4 owa6OlYPNwn81bXH1lb8C6 l0lhNET5CZ1jn1YpRBEvuF BmuTRaIJViw6Wqnjbxo0Tf KXFkykByh8ZiRHWbtwYusB PhYRMicvNvpt3ppwLyWDDk EHDwW8HxutmbeYwompQnJL Yuik9pbkFvVRL5YINHRKMx SSZtj2HigM9lpXTYPDD3nY Lazn7mfeCSkFGxGIDsla54 QGNuVR6rW9txKTArPFOwpi EpvBFfc8SlJWXugEV5yEJq KJ1MYhCAo16aOCVoHZPGqn WcADDznJxxePL9vdD7lA0r IChGREEpLlx+IFRoZSBGRE HgNK0msoKrp0KtdiUowCxj LDFkgBUpb1BalFDpp9EynP ogx5OhkOLhoCFtXV7qFSDv clxwYXIgVVRNQiBMYWJvcm M1l1KrNWHiRRMbZXK2kEgx ebp3NPWhzY5eGHCsN5pewt orTDrzROJkb9MoyA2pxGIH pMCvt3BowKEyjJCPgNFzAL 9qsxDgMAkSCMkOUKZ6nvNl IDRyn2HbGZnnZ1krZ69eyJ oksIu0iBH5QCL9aF3nHxq+ IFxwYXJccGFyIEFwcHJvcH QrEEVnaDykcmRwN4EwnxZj kG8nyLTfqhRrLT4pEH4rD0 W6oSWpXNSynjAmp1owBKfs dmUgYmVlbiByZXZpZXdlZC Ehz8ZfHHujILH9VQejrpHe bmNsdWRpbmcgSCZFLCBTcG LssAWsQWS1LZsgceVvbpWv IB4gkK0xxVtzxI4mdYCwvY B7sqqfIKTmJLStqWiaRLNn NF9dqFdqbT4tHdVuSlOfZX jpIY6kHOSgC1gfbIIsKRQu WRVsX7owCzOeyA0whBgeTI xjZjJcZnMyMFxwYXJccGFy XHBsYWluXGYxXGZzMjBcbG FuZzEwMzNcaGljaFxmMVxk IfNxLQKxWTgfV9apRjVcT8 LvYBQnWhWtjCHqR8rxOGks KGC2OMTuTK5fvZRbKS60cY Jps1spNQjjhWqbvz5vR25x xMAyHJnavJaiSWIdv66uz9 FiHQXbfjXhhq8sQRSlqxJ5 wV6fWGSewNxnKYKfvLQdVY Vfb9YsHUbgaIKjjfHdGIcp VUPiFLKvhPKfqdY7jlBvql XyamWdBHWszOzaDAIbw3Cj XRBrSBysp0Jeqg4ruBNqJN HlafVYcLfaxZPxyF4rQ3Rz RDOjPCGxxq7cSDVlzE6tIJ pbs4YngncyASDiRPJrVCZu mdFtyp4eLDExnJFSDM0UWJ dvsNAmd4HumdGdW6yZCUP8 NUQwNjYwMjgxKSBleGNlcH RtUBMybv80XUKuzW8koQqy XLTdwT1wkP9lfHywuO8tBw IqMmXaWItiNQ9bJRRdJ9sf xRVtNGPdGUJqI5cbDmAufM 9jaFxmMVxjZjJcZnMyMFxw YXJ9fQ== Embedded Images (test code = [id number]) [facility] [id number] 19:23:05* Test Item Value Reference Range Interpretation Comme nts Case Report (test code = [id number]) Surgical Pathology ?Case: [id number] ? Authorizing Provider: ?Dominic Keita MD ? [...] HPylori ? Final Diagnosis (test code = [id number]) p1jevVAvLTDyn0jlXBJnaU FuZzEwMzNcZnRuYmpcdWMx SSognxUbARgxeXloDZI7EH EtYX6orUmmqRn0kYdoIGAk lcJ0dLEiLLgcj8ciWPR6o9 ldzqwzRWEnZKpfMs4xnHYi wOmnJaRxQMUnNEz5yV56VG AbyU1oiSCjVAg7YZJtyGBf teFxJzZxKZYtkMGmdKR0PT AgCI6jpsqvRLkxKPizJBOj acM4KKMikVKmO8MxKQJhVY 5ermemCZJ0ZZwmSNZzGBZ2 ReEzTTOrm4Rxjjk1TtBmmC FyZFxwbGFpblxmczIwXHBh eiHFQqTAOI8VZDVCIXZNV4 rLPHPISQ6YERKWIzkmlNLi XAWmGYKnFWAEBK2LGNOqF0 mQDnZxMC1AISIqHGGelWMu UIVjczOEGyFPKG7LVQ1JBW wgQklPUFNZOlxwYXIgICAg YAPtFDlUN6TCUDGaSTAKF1 WWTDmBSRzcOa3jILFBTE2Y S7nQJ6PYASEJCD1CGYnhFO UtYDQiZALwHS3QUQyjFQLA TT8UDCPNSZVDZCuNWQCGJY HXZBiBWCAWN3ONDOgNARBj bosxCVEnPz2tI3JPRLVZFM wgQklPUFNZOlxwYXIgICAg NWWoGOJEL5JIHpZSXQ9TQ1 4YIJHVFFWMBV3GTHPCFYaD KG3HGPGLZTKFLMBRD6EdbR FyICAgICAgLSBOTyBFVklE WG3QDJCJDdWXYXnUPABbID lTRUFTRVxwYXIgICAgICAt GW3CGUeyCNUBVD2UKSOKVq dBTklTTVMgSURFTlRJRklF PQQTWSVHPK5DSu7TCXUZHd xwYXJccGFyfXtccnRmMVxz e9NmO6GuGxVsCNlflvSqPD UuTnnrttcpPLTrVOV0dqOj ZHGjFXdoMMCaOFdlFg2ehQ TalLwgFaQvVUQfd5igalYX AJaoRdCwZ939TMPvESrft1 ner3JdOKWhlAWho4O1GVAF epaqnHt3a2kdWwIsLmM1xT GlVLwsR8qdbuNzlNCiH2Am nXBybNu4wXomF48yb3F4Lq ezX7tfONIyBBQrK8OgMA3l RXHwWla2YEN1JWA7OHBaDZ QrW7GhCC9yDUXtoLHcQNg4 u5nubDotWOJpWYP6n7egDX fqdoM8MO6cts3ehXc5r3qt czEgRGVmYXVsdCBQYXJhZ3 CqzZckHl9dhSj8nZbmBmso NVC8Scl4SG7ajm14blo8eJ ybEIMcwkhvWoK0ETmcWTQo muldQXb4SPpzNDOmnSX2XS CkcFKiN0TjMADwZH7xogh2 WEJ4ZIwrHPLuHfU5OTEpiU IzMPMoyVboLCsso714OOQ1 DlRpWJ7hC1Cti5W1tK5rcA YzPKKmzQDpAkEkKWNxkb4q rLYvAPyde9HtVSJ7zgH4vV WasHRpLXYvYR22Vxtnk6Mg XehsZYX7PHPjxcCew2Vlz3 roWyQxzpBjQ3hsR4XkAYHm AFFqRXJrBhRkzpNiq3Jvv4 HsdITuhJz1a6nxPFTuVOLj uOrvz6bxLDG5ZBRgA5G1cC Kmr0ygQUxwZXKfjCJ3jyC0 AJAydJEzS3KqjB5vRNSuKM 0xlrc4s3ziBLN3CZaoCAJi VsQ8juG8WDIonGGnPKJbqI kmCLttg926VFY0GbBpVGSm o6KcA6LluBluY41trDtgN9 5wMOCqwMzdpV8qdOhcjA3k ZjBcZnMyNFxxbFxwbGFpbl xmMVxmczIwXGxhbmcxMDMz CWhiI0izSsKtUAQduAznBS kzg6JsWDXwZNQeJhdrrhQc XHBhciBJIGhhdmUgcGVyc2 9uYWxseSByZXZpZXdlZCBh cOdyc6LnU9lvMS5aB8CurW UvrjWprdLuRPdkFCNjh8f3 aWFgoAczo1TfcCXtAL71ck XhUCNyKGY0FAIka1zxTY54 xincUoPovH66toHqhmYpKH Dyv5klN5rulLImt3Mel8Lf wjQyNJikn1UyTS7fcHUvxg mjqSZ2GRXtxIZsoeZuquT6 xQmpIUOhcU3ilU7raDsmuJ 2yRqNcOnDjRLhjGA1kAMDk E0huuHLyBOJbDZTaV4uoNe BkiN5hwPlpPsmopxA8SSIi cn19 Clinical Information (test code = [id number]) Shivani Schuler is a 47 year old female with IDA1. Gastric polyp x 6 r/o adenoma2.Duodenal Bx, r/o Celiac disease 3. Gastric Bx r/o HPylori Gross Description (test code = [id number]) r6xlsQEpGVAdnESAWOK5AW VxUK1tuIfxtEy0tXzhMFDx ubU5cBRkVKxzd2mdSHO2c8 nahfFBAmtyWIPuJO3nWIyc LPToUQ2zZzIlQHUuPhXlHV BhcGVydzEyMjQwXHBhcGVy xME9RBYkFK0jgtjqUKpvJR imHAGqvmN4GPRkjWSdW8Wv DJTqJS8xqjfmYRW8ADBVLt ixIq5nkAAneEajKkIjObGt YXJzZXQwXGZuaWwgQXJpYW r1hG2ATopiMWH5WBNZLmmj HxuwxXuty0NdyRQrSLPiEK xcaWQgNTEwMDAgXFxkYiBP DaUhAqJ8Fqg4MCN0KqX0DW f9HVMRVRXdDfvyWMF4IoQ3 ZZw5JDYoSG0iEWimrONxFD lcCoecYFnpW727FPdzEYFe X6VkC0KaZPhgNwOkBWxhAC YaRATcZGhbRQWbZ7EREEZr GJR7ZeHaTWCcEJd9LEyiW6 EGWCCaFCVyDgO2DUHxIhQ4 SYv7HRAZPo3qWZtzSkThDG h3LQD6VKj0AhPpJIHpBcRt BTJeTEEfGJfmjSQaWK0ldM vgZWEmKG4ZJTWpIXgsHLGf OtRwV1SXD5tXJI5oIJlibX JjaFxmczIyXHBhciANClxw OGVjLY5VSUEwMOqdLNl2sn TjGKFwAmMmNFPvM49me3XY n9NzIE2NZEw9xnIneqvuiY 3wJICvcvFdNBtVcJBjsZ6l taTZDWmdWDNsB4XngkSmYS awKRAkbv8ucNypOYxfSlUp bGVkIHdpdGggdGhlIHBhdG ozaaElN4A7hmSySU4oMXOQ IZBfzS6qPHDoHDFwz1TprK DlzUxiB5QqzBMvWdAht4t9 mZR1GPEaruXfGGGqkZVsZP Cput3wJOeqWvTeI3C5PPSu ITHcp67nrOA0skTsZtGnyZ d5vGCzRYX0GD1rdXiwcgZc d6p6aS8zGRUva3R6YHOcu4 R0NNPlifVwsVDzsYUdKTMr FZ2bguAhXG06FZZoJLqkHJ cqCCL3OFS7RQSbzCAbh0ue malhLx2zJAiuAA6tMScmCI 81FCRhPBifZJTzG6QeR6B3 BVjpHROoQSSylTEitB0mzo WvaiPulAw0IOAuUYF5dIVu dSygERDhWdkkcRO5DTFeUe KnkfKbr8CkiGu5aTSjLTdx OVRjoY8yzM3hRFIpLTReti JGAzqfOGAtKPlqz8JbXLxm cGljWHNhMzAgDQpcZXBpY0 8tq3NOg1Oju0hshUarq3Mr yKZeUK6lyMRzWQ7Iu8iyCG JiaIQhWJJ5DWbvy3tjNPtw ZFO7MEDhIdHuWDEeYG7KZh XzLAjqNRf3MPbxLWi4NRj0 BR5IJuZyKIViRkn8YuI2Vv VeKSe9YKokDH7SGJP3ZXGk PKLjRYfoOKQ0LBGbAZc6WX IgXFxzcyAzIFxcZmwgXFxu L98ypEAiVWscYkQlMIoixC ucKANtWIF1LQ2QBVNsFwJg E9QYZ7vGOO2aDvxzgpIxZP CzyzIYHeawCORzPM2XIJJi XOcgSKu1jfMaKCGmWuKcAS MyP02xb6GGw6RnUW5BZOn6 xdHawrgkjB9sCFEcfoSqq5 IzMFxlcGljWHNiMzAgDQpT wKFcaS6nufHLDToqCIMmW7 MatdCbKSvlSVAvnh5agDrl IGxhYmVsbGVkIHdpdGggdG zlLXAabZepqsWxW7K4cuSa FX1dZLBZVRPzuC4pYVWqMK ZjRAYlJXGzyN4uUAW6e2Sl zuVuNXOEMXDxbUnxZB10aM BjZWxpYWMgZGlzZWFzZSBh yaQrgiTiu10ogoXur3VnZP 8bxFwfSEcYTIapHqVyED4v NZQzlrAyh8SfWX1gJCIaqD EiCXHduqsvjFEhNIx2gKWt NHCdTnJshEupk5DvCENsES lcVI34dkMeTX3wVFsjXK9e UBowPX5jJKLtJQUhDRXmBd TzwCFhUyFcwKWuIsHaL97h DeCNtKKhl7HzM2seKL0epC SvKwxpeXFqZBSmhOdfz0Il zYQvUQKhu8GcwZHdZJgkFZ 0tZOP9Ri3vaYWxCPAohkQ7 a6OwJWnoWQYvNcqmPNPaHL qmb3RqMLSwoLSGv6QeYD8F XHBhciANClxzYTMwXGVwaW YSw1PnZPZHEoejvJypTfIn pJFlJhS3PUQphKHjPHE2JK 9mnWflCROxTWf6MUyhCXGr A3PeI0NvRIawWxTlZGbqUA ZzZQHnEZziTYXzE3IOHAKn BTF2HuNnLLQaYOc6EJbkU7 JQWDZhWBCuKjM5EKR4NfE8 OBh1TZKOPu6aLVgpCyUlSJ HpAkM3VEj4MeDsMSLqSkJr YPZlHUTpPWjziEJlKJ6szV bsOWOsEFHhFCF2FDIxmVSU v9EmNNYkYGedZyIgKDKEDK KRQN3QDjVIHDTvFiWvmVDm RE0QFQQkwlXoRQjtePhdqO 7rmLGcF5juNjVoWozocLsk TmVzdERvYzEgDQpcbHRycG FyXGxpbjBccmluMFxzYjMw AAAvmCBSx4UsEZIMQgKiQQ NpbWVuIEMgaXMgcmVjZWl2 WNCzoC9vRd8xfBIknS3pnL JyVPcsVSKto8c5xWW7tKKi bRW8qZVmvXpgYfVxLR0gdI QtJGCJTY75zIPirpSlMRVl sR5aHHSaQUUfITJ0nkoeXR YYSGX1cAGmt0V7EVhlIPH9 wL8lsYyrNxVnF5U5AFRqZE Wcx13lpJW4nlIdMnQpRCLc nb1bhJ6iWLjdgpNtwBczzf Biz0O1ELTku3Y8DKXzznTx hCDuuAPxUMRlZyE6JGAcYm C4FCHdDUBnfYZmWAYjXT2e VGhlIHNwZWNpbWVuIGlzIG JpsHRgpqOwJKFlxn79V6qj SMFcvM6is3cbIwWcOBAmEC RuvMRnmDR5QOMawP0nkO90 qhXkmgGSBJ2kuLKrVY2GVC NiMFxlcGljWHNiMCANClxw WKDwOOtbp6JeSJhxsOwtFT OxEsStSRvIeDeyHIJJI7aw dHDqARtnBXZSZVfDE9XBTJ 3KIUKsyKJKFUP1ZG1dMRlc CZCgA7QsE4BnvhF2q2ujeL ucz7JwpCUuNF8cyKEmUX5A XHBhcmQgDQp9 Disclaimer (test code = [id number]) q1vulADoWXArm7qoHQJspY FuZzEwMzNcZnRuYmpcdWMx HDbbqpNiPWvem8DnL2AnSa AwMFxhbnNpXGRlZmxhbmcx QQBrKIR4enVcTQSwOPcrQM YjHQnzMr0ltVVizMboRnTh BSIvy3vmfcPSAGbuHjVkA6 51GFLiARggz6dss2MzLXMt iCNhe9P7VKIJjmnegJx0pT kaW81mp8I6TmzzN2rbGKSf JDFqM5OkNK0iZVQnMwh5XN V6SDJ9UYQeFVCbH6VuMR3y ARQenXPvRJj5k1vvtDpfRI RhJJZ5r4eoGCogluUoDI9x fc6coTm7k0thrxTuVZEqEN BbdGHXCWSiE4LjrGfhEk5y kCf2uVabHkpaVAI1Juf3EV 5czv73siw3bTscZTSwtnly MqP0DNhfAOIlekjyAHn8OB phJAPizFL6GHZgrFEzZ0Yj SDOpFQ8roac5YWL3LHqjZJ UuXiH1JZZxaAAsKIAhcXvq JCmbd883REK4VwGlGE3cB7 Hdr6J9rH3shGKxEDYvtENx AnCrJZBfxu0iyVHwDYxlt4 VeNZT6rmB1zVRspQUfYHGi MF42Sizdd0CdJhykp9YxC2 9yhPV7GNgur0dlMU4aThZ3 vfRpPKfdq1rloT4aLzZ1IC hkNG6xXI8dDAUocZ0wigez XHBnYnJkcmhlYWRccGdicm JgJn3bgVyuFOR3TWjqT6es qX2gWpU8RCkbG5rniK2bUL m9NZhqiJA5TFMrwN2wET0v cvivp6dnYTsjPRlnYRVtvb B5mmJ3JZBvwJEpZ2IboV3r DFKrIP4nfyepo4uqGBB9KT xaILFcCHP0FrEiVIBbg1Iy gix7KfEpf0WysDTfSTugU6 7eu133NAJuzdZrK8awcGDs fpultYDcybfnJNivhoN6YF TvoiZqj1MiBAFlRPE9ZTsc JJopcTZlMZVidOuzn1haR1 RscGFyXHBsYWluXGYxXGZz MjBcbGFuZzEwMzNcaGljaF cmDDlyGxIwMJMsNMddT0ep AmVtJ1TjTLQyFvGluWXhL0 ggVGhpcyByZXBvcnQgbWF5 KXfxM9v5ZWLbekOoaWb0nb BaPqGaLQStIUQ7KHqfhSWd XERiz4HeiipjrLLoSm2jsH JcFPBodK8cLPOdFOTtRJlv VK1ikZu0WNHIvQOoiHGoSn AIRNCrMJ73nuEsQBEYixth v4W9JBbvBDVif8ExoIBqT1 zej5AaZNScn49fZC9or9F5 v1gyAGX0OW2bg2FnLUIgzL NugCLlUZBrg0Uepcuqk3Sc NDKlayBjb4SkNVUmrtAioS VoZSJfiiUsmo3ftkTaUKZf OUJqS0CmskaxyQhhruBhQT Nkjg9rmlSbXNQ0EBCQTUMr FXDdc1MlwP2kmKOMVPG6kL Tunr5eyiZCnCOxDFSesd83 WPYuTC5cE3baOEJzJPVuzh TntEOzj1YoKFHumZG8kMYa MD3GMgMYt03dLZMvUIIIql ChWKLysJnwuPM9juC3yN0u IChGREEpLlx+IFRoZSBGRE ToIM2tukTdd4YsfnEkwXei UVSubMTkx1KhlSJei4HlyS hkv4NdqPIqpCJtCU5aDUTz clxwYXIgVVRNQiBMYWJvcm O2u8ZjATQpPGVsTPR5tKnp qlq4XTQijM7pKIBbT6ypwr ysTEthTNOoq5GonU7teZGS gLMgj8XcqCSaeHUXvUUzJY 1frnDqXFfGARfSDRG6mhMv NWKkz7VvYXddT8jvE58jmS creCx5oBP3HHS2tD5pFqq+ IFxwYXJccGFyIEFwcHJvcH MiEQOquMtvncNvU6VcczMb gJ5ooTKucfRmJK0jNN3vC5 A5uWLrATRpkuVtv0hfJHoa dmUgYmVlbiByZXZpZXdlZC Pnc0BcVDeoZTJ8JQywknJs bmNsdWRpbmcgSCZFLCBTcG KxvXKgPBW4TVmxohWdjiUz KL6axJ4xeVryzR5hpYLdbW I2kjvqRMWcNQDuhLnaAKPl XH0epOfqpZ2lMdRnTwIhGE xjZN7dQVCnK9tggPUqOFAb GDLyH7ytKxFaaF5hxLvjGF xjZjJcZnMyMFxwYXJccGFy XHBsYWluXGYxXGZzMjBcbG FuZzEwMzNcaGljaFxmMVxk BmOwKOVeQLqsF3zwQrVuT9 FcZOQgRtBhbOKyY2orGGco ZSE6IWBtXE8oaTSgQR69sW Dmr7dtUIrhgNtilh7xY58i rWZeEWsfgVxeZVImx45ou7 UvZZGyuxKgpm8cODYambE6 nO4iRAGfmObcECBdiPAiFT Puc2ItAMjocTUjptAlZBhk IVVcOGIqgGZjtsG0mlUbjs JafmGoEVAipKovDVAus2Hd CLTcQLhal1Ylim1sxPJiCB DodpJStOtouJGejM0mK6Sd EAGbZHGlxs9iAZMxqD0rVE wsd4LkfkhpWKUfTHNbUHUe utBvlf4rCAMxgLAAVW7QJV rhqPQbn1YvtiSnJ7gTPQR2 NUQwNjYwMjgxKSBleGNlcH LtGWSiry44MXZtzG4xkRqi APRviC8yvQ8hxRtdwR5sWh McHfHsVQfhPL4mXXHlL7dr vHJtRXTlDNNnC1voDeYzaF 9jaFxmMVxjZjJcZnMyMFxw YXJ9fQ== Embedded Images (test code = [id number]) [facility] [id number] 19:23:05* Test Item Value Reference Range Interpretation Comme nts Case Report (test code = [id number]) Surgical Pathology ?Case: [id number] ? Authorizing Provider: ?Dominic Keita MD ? [...] HPylori ? Final Diagnosis (test code = [id number]) [id number] FuZzEwMzNcZnRuYmpcdWMx DTxwvmTgBRfunUpmTIA0VO MoYD8cpOgydCm3nXdcFAUg rkT8qPAoCCtrj2riJXJ5i6 mfjouiTYGvVUfmFb1dlPGx vRcyPgDfZCCjOBl8qN73YX JbvM5ndQIgAPh3YHFagJPc lhAaIqEdTWXtbNAyzMU1PC IrIF1rvmeeBAelVEwnIPFe glP6OUIdzFDiT2NiYTDlWP 5uctysYZG7WQkrPAKoGVQ6 XaFrLXMzv1Icihk0YwSgeP FyZFxwbGFpblxmczIwXHBh kgZKQaLYSX2AIHSBYQVKK0 wYWRJQCW1XDCDPNmjtzNWz FTMbOVHoWUOHJY9FEUSzE9 dCEyDkKJ2DZZYqJUSqjCDb EMRiaiYCUvWGSB6SHD0EBA wgQklPUFNZOlxwYXIgICAg LTTxMCvFS6GZADJzOCRNK2 SDFGuIALvxUx2aQRPBRX2G J2oPF0UXVBHKJE6QKSsiUH AbUXXxFVBdRC9XFLsxZVQP LY1FNHEYHCXTZTpZQWATJS OVXAdTRAZQO6BWTDvMKXOn smpvIBHfNc0fA1KSSDLZIJ wgQklPUFNZOlxwYXIgICAg XHDyFDYMF0LLClJPQZ5YG2 4KDJDZOJOSOY7CNQHAZWkC TH5FQZCBOKWFCXNBN8NvnA FyICAgICAgLSBOTyBFVklE PI9FOONAGpAKLAjGAIPbOP lTRUFTRVxwYXIgICAgICAt CL6ERMqgGXVMML6PWWBBDt dBTklTTVMgSURFTlRJRklF YPQRJDDKET8JVv1OQUGTZh xwYXJccGFyfXtccnRmMVxz m4YzW6OqPiMgAVeqspLoQZ LpCarltlqfEMFbYCE0lyFf NLCcSXneQQUwJSzxPy6dhC FtqSrgPxTiKSJwc0hwdbUW LRnhMwRwU920WVJsLLvpy7 xxh2IvADKhaDBwt3F6DOVF edjpqVs3a6ibXjLsZwN3mD GmVYkeQ2vmklJrkYZoT6Fv mIUaxVx5zEpaM69rj2N6Rf moU0csLZQxKQNwA7AoMP4r RWIqLbv4YUC1VTE7QDStLA ObC7VxGM5iGSWmhTTgEBr8 h8sdkHdvYEHeFSD2s6nbBC xzeeA3HT0pwq0vcIg4a4fa czEgRGVmYXVsdCBQYXJhZ3 CfbRqnMw6zbNv3uFuuPyas JBK6Ybd8SH4zkz98onr0yO oyRFExqrhqKyV4DUvoWDYh pnbfYDw4IDtpRSRvgHT4VJ LocMNsH0PwRYCaAS3txby2 QEF3WTgpSYQxFdH0VHVzvM FsSAYipXyoVKczp475ZFH1 IoSfNW4xC5Jut7L9sC0ftU MaXSEmoUOpKqSgQVKble9m zASbOYunq4PkWJL9ipQ9dI KkdYOyRVOqWN68Ixycc3Xd IwkqXII6QYDowcSdv9Gsq1 nyKjThoyYiB2bqZ1ZeYMUn JPEgRODyExJvkgBog1Ikf1 LnwKJdfUc6o9puZJUuAEZg fKvxh2uzAKQ4MPIwL7H1wJ Zgx4thKCmfPWIqdZN0ucA6 LPQwnJWgS0OwzB0vEVAmJR 4vixt5d5iqFFM6JYupMAXj OmB2trA3BPMllJXaBLIvvC ckSJusa012NZQ3CpEpCIRb h2PkY5SmaUgkE05ktQblQ6 4hNMJzkKzclL0deMrgoP4h ZjBcZnMyNFxxbFxwbGFpbl xmMVxmczIwXGxhbmcxMDMz DXqgN4gjEtXqCRCtwNanKJ iru2PpIRYyRGKmVtimmaFc XHBhciBJIGhhdmUgcGVyc2 9uYWxseSByZXZpZXdlZCBh pBibd3FvQ8zsRJ3lY3LfrK SwonTmmuDtGTjwMRFzc8n2 gABwqPfoo4VlhPBqQC95yt UvDJLlDTQ5RGUfh3vsYC32 rubnYtWchB62tzVvrmTvQR Ciz8xiY1nydUSoa8Ulr0Jy lqQvPTuup2NiWR1bvNFicf ansCC6BFJauRGlvwLdnoA2 jBpwDTBduV9muJ5hoRanfN 3iYpWcZoNpEAqqBH8pZEXi B2cpiRXtNVOvPAWtX9mjDl TamW0ioNqgWxnwosT1RUHu cn19 Clinical Information (test code = [id number]) Shivani Schuler is a 47 year old female with IDA1. Gastric polyp x 6 r/o adenoma2.Duodenal Bx, r/o Celiac disease 3. Gastric Bx r/o HPylori Gross Description (test code = [id number]) i9umhWCaKTJvbNWZFIX8JG RfFP1ffOdynHc5tOmaMUDp apF5xMYnWUfpv1xyWFL8u8 giszREWtsvTCCyCT0kMRer WAZeXD5vSvCzDRTfYhGkUI BhcGVydzEyMjQwXHBhcGVy uXW1ELWcJB2gygnjOFmoJQ vfVQSnxmK6OREjcWOeP8Dv ZAJzQC0uewzaFFU0SMPAKb suNn4hrWLoaAueIxNxFmJg YXJzZXQwXGZuaWwgQXJpYW d7vJ1PJuftBUF9IGSBLcgb MxjzeKdxa3PllJRfZKRpRM xcaWQgNTEwMDAgXFxkYiBP BnSyEfD2Ixb1SMM4JzD8HV f2FMNNGXOaTfbtKAG3WpP2 XYu1ILFyOX3hLZvhoAOjGE vyIljlQHjxR335KCxaJBRg Z5ZcS5JaXDkoPvRrAQxuSC ViOHHrJZxeCAFjR3YOVJAa GPX1EkUkIVFxGGt2WCdxK6 NSZNXqKHXqOgA0ALNzQwD4 BBa3IVAZOs0zBEvpJvMyZL p8IUY7FFj5IpDfCFQkWaTs FAPwRCThOGhkoHLeUI5fhY ccXLIaON9CCSAbGArcLMXm KlYkG9UWK3aSJF6vDGnkgT JjaFxmczIyXHBhciANClxw HGFlYL4JDPWxHNrpNAo4cn RoFLTpCiGoDIYrR14xv9KD x3FeAW8HTAl4pfVwzyvziQ 2jZIFypsFaDOwDdOTwqC3e iaXKKJptSFAfN8VmgeHqZQ yxIDToid8dyXbvRNvwRqHy bGVkIHdpdGggdGhlIHBhdG oqpzTvA5D9mpPaUA0mGDQF YFSxoH6bJQNaKWMkp7RdeI JkqJaaQ5OsjTCuQvQop2a8 tLE5NKEgvnYkEMBnnSFkIK Mlkk8kXUsqXnBlD7S5OMTt UIHsw01kcDU2wiGlZlFwnV y0gCXoPJJ1HD3iuQszdqDj s8q7xB0nODYwm8Y9ZZCdw8 O6XQBywzKihRJkyGIiUVQf TV4rncBuYW24FGPlTBmtMI kaSKH0OEA3ZZEvhGPbw0au rtubSo8eUKapIV0jVNljQX 31PXTzEBvjJZTfK6BjY9U0 SUgbZLQlLLQvmXFalH8oyi VpeyJiiKb8VRRwTYP7kRJb vHunEAFxJczcoWW1FVZcHi ZxaqDqc4HspIr6mLEmTPrx JFMkuN6etA6cSHTwZMZczn KDLdqtLFWgGLdjn7VqJTpf cGljWHNhMzAgDQpcZXBpY0 5sx8KMm4Nuk3xydKgcu5Rv hZGlQU6cuDHkOG1Iv1omXW LqbMDbXMN2MDtjp4ifQNsw YGK2HHTkKaZdFIZuSJ7ZDs TdRZjeFPl0AKpnXCz7OVv2 ZK8KWpBhZQAjWxm1WwG7Vb QqIXu8ISggAI7VBWZ4QMLi PNXcUEovQVA6HCGaUEh7MI IgXFxzcyAzIFxcZmwgXFxu E67vqEMpKEzuLsPfESyiuB goMPNvUAY8IZ8WFXSxElMi V4SSG8gUBF2vOsoaulUzMZ QgrjXFKgghPFBqOC4ZSFHm PFheHRm8epNtYBTnRlVkJR MbI40nd9CFv0HnJC2TABc1 xaSwxwoecE1xUOZjgmZvo1 IzMFxlcGljWHNiMzAgDQpT oPClsG6nyzGSQFojYMQjO4 GldrBqMRfdXKQiyv2qzLur IGxhYmVsbGVkIHdpdGggdG ooXRLzcObjhmThR9R8ubVz HL2eYFOGPDEtcY9zMGZaGZ CfVEQjEDBpxX1xHVA7l8Kp nhYtAZNEPQSbgQtcRU97zY BjZWxpYWMgZGlzZWFzZSBh viEuyyYlx48kfmQbt6BxNI 9gtKvkFOeXWMrgOxHuET8o YVLyezWaa8AzYK7gQMZrsB BcOFCxlifkfAXuZUq6tYTv GTJiQvBioImnk7KxHIXtCB geVK98vdZmGY4jABozLV4v BZzzBG5jDPTmFYCyFYAoNj TdsGAxOySgjUHmAtNgC41x NnGMoNMag1VuP6wdMP9hbY ErZbytrTLbEAYozLdaw3Yz tCPdAVBsg3PdkRMzYIbxBT 4eXMF8Ew3awFAwOPPicpG0 a3SdYEoeBMKzSghgXWZqAU qlh9CqTMPqfFDCy9YbQP1Y XHBhciANClxzYTMwXGVwaW BUn0KrDCMKDltysZfrWiRt iIGpPxG6RIXupNUgBCH3JS 0xzXzzWCKlBWi5XWegHMVt W3SpI9WoUAbfXmVsCMteRH LbNEGvKDjyXWJyE3PUKKVv PQV9JdFmZCDnLKj7FQzeR9 ISWLHjGPGdJxA2HCU4TzN9 AOw2TUXQXw5rISedZxFlWD NzCpG3VNp7LkHzCJXdBnOy ECNtOQUoCMevbGAyZD8kyX orKXQvCGSgWDT2EXOvjDQG g1NpDYQpYBfwKmJiXMUWTI VFRH9FOpYZZDExAzUcoRJd FN6OQJRvztYuTAyreYjxuS 7ocPGxR1dyWjQmQsrbzCtb TmVzdERvYzEgDQpcbHRycG FyXGxpbjBccmluMFxzYjMw MHVgyVEMm1WrEUXPPmDhRX NpbWVuIEMgaXMgcmVjZWl2 OCXtjH9oNg4juBCsxU1vsN OqRTkqJOCcn5y9dDC5dEHm oNK2wHGurMvdKyCwNS3caP FsDRDKLT66zHXpanYbNGKu iD5vXIUtFWVoCMV9bfhkMB EVTUD9sQBlh4S5ARirCWG4 sH1nsKatOxWcU5R3TZLlUR Dnp65aeRF4gbUkVsJtHCGn is8zoL2uTNqyaoMryHpaef Jow7C5BVDvp6F1FABxneBm oOVpeITyCJVdMnK8CLIoOj G7IRMbMPUwvPVdOZHtXB1p VGhlIHNwZWNpbWVuIGlzIG HnuVKsgsLxQLQmio93D2fs KIKsdH8eq4ikKwWdEMMxAO XiyDXfsKA9ITHflF6tqB11 zwXobeOKZF7qtLOyTQ0XFF NiMFxlcGljWHNiMCANClxw RZFtAScth8FvVHcymOwhXV PuIlLnVHuVhGtzHOLHT1rv rYXxVVavUUTRBHsOW2UFKC 5QHFCsuWBZXUX7TL0kXUco ASSxW1OmC6WuzyE1m7ezrP lfl4SstVVpVW2wsKQkOZ1V XHBhcmQgDQp9 Disclaimer (test code = [id number]) v2qpvRKaMJZln0jwCGUbwI FuZzEwMzNcZnRuYmpcdWMx QZyaneZtORuxw1BpP9RxQo AwMFxhbnNpXGRlZmxhbmcx LQYvXRX1nfVrIHAyHDjdRY EiVDqnJj5gbZNbxWpoKuRz NMLgw6gwqzGFBQpuBeNoN0 07CXNuTMmzp5nis2GgUDGo jKUed5A7WYUSgbitcCt4cF wcF63wb7R1GffrQ9saNONb HUKkR3CyUI5kQXTtHyz1NO N6PXZ6ZPYuPCNdK5YyCA4f UOKvjALaZNs8u0jaqIfdZF EsOTA1d0lrAGikvjVsIP7g sn6gvEj1k0vdyyDhBBDhIB QkqYQEGTKhI5AlwUwgDc9y hUm1hQbhNatrGYQ1Nhy7KB 7mhf63eyx2bHxwVAAphuie BwP8FGwnGHUbfjezHQo6BD adABPncZY8KOChsXWhA7Df KEVpEQ5xljo2EMQ0KIzlNB DgCsI4VVKmnOBjUASjmGhd JZbdj193LTV6ApIwGI7mD6 Hma5U5hG8ezKSwMISsfEZf LiUzRMRein1xvYVwFKpfz7 NlZNU6hdL7aECupPIxRRIk VM91Wlzyf6EnHryes3DyZ5 9vyJP3SJaqy6xdDN4fTgK7 ocYlKWwkl9exuD0tJwW7NQ bvBG4dLH3rKJNeiK3yjwgx XHBnYnJkcmhlYWRccGdicm SqEd7ocVdeGPE6PFfoD6zf bJ8wOmS0IVhbP2ehsQ5lXJ q0YUoezOO4VELzeW8aSW9e iqcdw4naTRacNDlvBTKqqd W4jeB2NKKtaUJsS4ZdvP2v GBElBM9pzeaim3ifDWU9FW huWHOxZSY8MaKoOOBta8Pb tiz5XiDrq2HwtEIyQZqwB6 7eu856LGZnulBpF6ifnGKn nnkpwSMacabzZBqaadG8NS OsmkExe9YsXPAhGQD8KTpb XHuwaJZqYWJsePfbg7koM5 RscGFyXHBsYWluXGYxXGZz MjBcbGFuZzEwMzNcaGljaF esWEtiSjBzFONeLWlbJ1nu IgZvY4LsVTUdEdUacOTkE8 ggVGhpcyByZXBvcnQgbWF5 TGtzB7k9VWJtfzJfxUo0iq VbIoJnIUFkRYJ4CVlorXKw YTBce5SscoxqmNOfPm7neM BsROQmhP8uZAWhFDUwNVzj BU4ifFy5PQAMkNBysOWzGt JYKJGtHM61akDpIVQZrgsp v4W5DYeuIIVun0CeaFTeU2 txz9VvWXDcq71sJJ5xk0S0 y1kbKVE2EQ8hw8JiCUYvpW XzlBMeNTYqq1Zibzcnd4Ft VELziqJcm1PxOHNujdJyxD MrTFYnnjXukh5dbaRgXODc IHSwL6FnkdlpuQszzdCgNP Jcfb5mboOiSIN3DINANQWt DUHtq7GumL2cuMZMUKK4qH Ywrz2zwbUHhFCzQERipf73 LCCdOT5eX4lkVWSlTYGzyd JyjFZbi3NoYLEtmQL4fFDs TK3UGxVEy95xUGChSKTRyv NfTAWabTdxlOC5joG0bW0b IChGREEpLlx+IFRoZSBGRE LsIG9mysNeq0ZwekLflHiz ODZktBKxx8EqxFOdc8HihH lgy1MihGXgsRXmYW4bIYLw clxwYXIgVVRNQiBMYWJvcm J6u4MhCBGrMRZpBWX6jIik lrw8BFKtzD0fDGOoK5gvsi mtDQlfURCgm6VidL1xrHOG pWCkc4CdwMVnwHWWsSAvJL 2rpfKuRMmIGYeZVTJ5zbMz CNOtz7NhZYahG1kbH19nyO qzuZe1kWS0WYL7vW3aNmr+ IFxwYXJccGFyIEFwcHJvcH ItVITvqZpzyeXjF6YxyrNf gA6pkEYdvmRhXN2mVG3iG4 A0rQBpRDYjqsUty9vpGSur dmUgYmVlbiByZXZpZXdlZC Aec7QwZFzvKYY1BWaahkXx bmNsdWRpbmcgSCZFLCBTcG QoaGQfTGV0YVjhkvMnoiTi DN8zlO4ekJcvaF0poDZwqS F4zecgDUXkKYUfdQwdHIAu MT8qkXofqZ4sKeOoGtDeFY jhSC3rDWHmT5vlpWTlIZOa MUTeB5ymGoNpwC7qlBaoQB xjZjJcZnMyMFxwYXJccGFy XHBsYWluXGYxXGZzMjBcbG FuZzEwMzNcaGljaFxmMVxk VhLlOXPtJGvkZ8taSmFrL3 XxGRHlSsHekQPiO2vpWPun YPC3NWTsOF6jhZMdSZ57dD Rfr8ktAXvfrSsxev3iQ54r rRRkYHokhPozAMHzx81wg5 YeEZHfmdXocd0lZLGyelC8 eR3gUOCucLfaMUUymEIzRJ Pqe9LcCZrorXLqsoTwLLih PGZmDTSdhNMjkxQ1ptFklj YcuhIzKFYuoMjmWZIun1Zb UVNcCBjji3Hupv0yrXAzGX PdffDOhXsugUMtaX7zE4Bp HGNyONNwaj6bGETurN2jZX knj7HqibkuNHTnPBGuOQMb wuHmge4zGMGwrVJXPV4MOI ksrNJkp7XmqbYmV6jFDLK8 NUQwNjYwMjgxKSBleGNlcH LcOEJwrr42MEKtfB9ptIdq DZVwoM3myE7aqSiwmW0yDp FuGlHwBVccKS8tNSOsY8py aWLkVFFeBVLvC7qhPgJroV 9jaFxmMVxjZjJcZnMyMFxw YXJ9fQ== Embedded Images (test code = [id number]) [facility] [id number] 19:23:05* Test Item Value Reference Range Interpretation Comme nts Case Report (test code = 6898464901) Surgical Pathology ?Case: [id number] ? Authorizing Provider: ?Dominic Keita MD ? [...] HPylori ? Final Diagnosis (test code = 3968046584) n4ymsHSqZMRzi6wmHLAdxA FuZzEwMzNcZnRuYmpcdWMx JXwmquTiQZzkeRthHOG0QL YfYR3oySfrmUs8tEqdIYIn xzH1fMYdEFiud6luRLT5w3 oaigbsBMOjDFhoEd3rtSUi dGjvUnViNJMjTQy7tS19MD CziW4bcPHiGGq4QQUyzPJv ybTbFhTrOJTiiWNtxVQ0LV NrNG4sharuEBxgGEovXXYg otA0KTXuyORbC8DiAJMnOQ 4hahjhRUI2BMkaEHToOLS2 VaTmVXJfo7Nhpcv9PnAxrN FyZFxwbGFpblxmczIwXHBh swIVFdBPFT5DBHDBOOZRB8 kKTOPDGJ1XIECOJfzjjBYy BAZxCYVpBTGEWD9NYABsY9 tWVeEjUL0SKTMeHSXutCNc VQGdubMZBbJTWA7VXO8XPW wgQklPUFNZOlxwYXIgICAg PKWyDBjSF6EKXFVhJXBUK4 ZXNGbGBRtaLr8xNRXJDQ6F P8eZV8WRVWLFBK6MPLhkLF JxDIAmUIKsAH3CJDfxNHOF BM0VZKKDWVZCXOuPUXRQFS KTBFdVJZOAU7WJTVrVQFCx nxjzVFDiDe6fO5NPSJZPVV wgQklPUFNZOlxwYXIgICAg KHHxJEUAL4YNVhSHRN5KJ4 5FFXSLWANLQI3ZYDGLNLaV FO6XLDJFDCNGNFTMP8PpoK FyICAgICAgLSBOTyBFVklE EG2FOUNPRjXIASdMCVLnQG lTRUFTRVxwYXIgICAgICAt SE8MFSnwTPYGRC8HAVVKLg dBTklTTVMgSURFTlRJRklF ZYCLKAUGBL0UQa8MGIAYDm xwYXJccGFyfXtccnRmMVxz v8NaV0PzXkSgWTjfdbOxOB CpKenwpikwORRrGOA0poFs KPFiEPzrZKZhPSdyFh5lrV CxqPngWgLpJZApc1kpicWR ROybMhErB389YLMxJFucv2 aoq9OqGKZwuWTvt6V4PZLM mjdddCm0p8szWhEuUlI4wQ QlWKrdB6cuchEbhMMvB0Mk iPAnpCv7hOlyD66zt8T6Xw lpK0tuCEZbYYZqR5QpME7c UBBxIwe6CVR0OJU2ETObTG JjC5OlGF7wRJVlmVFoTEq8 e2hgeOgxCVWbKRJ4e5nzOH kmquD1GY1xrk8fuXr1b6wf czEgRGVmYXVsdCBQYXJhZ3 BqwSufZz9drAx5hJghBice EOD5Hfg6EO4nlm50emu6xL poZRYupggaWiU1JUulZDKg hefwLUt7UUdhKMHhyLO0FM MafTGcZ7BrANTwGS7jeyb1 KTG5PEvsEDWqNnM0KIJpoQ ZhCHMzkBpmWXmgh047UYC4 JgOsSO7iL6Jrk8B8wK9agA BsYORjmFGfDaWgVGPezp4m eUXtACdrv9QmTPN7nvA1uI EoqQJgVXOvQU33Tiwjq5Rs PzdrEOC5YVBdetJpz1Woe8 mfBoSjdhPtO2awS4RsSKEm NJGaTVGfXmMuimSeq7Gca7 ZxvSKycLl2q8fvEQMuHQGa kVbis9jmIGF7LPFvS5Z5wE Kzc0atLBfjXLRutBJ6zaP3 URNpsVXmK6KpoE7oJAKsEU 6elbk6t2lhTOV6WJfmYLWh ZyF4hlC4PBPdqCQtKNMuaE kyLNtcn633LYI2MuOwXHBt q0GrZ8VadZgvT53utVnsK2 3wBBPooWecbL6pySqqpP5j ZjBcZnMyNFxxbFxwbGFpbl xmMVxmczIwXGxhbmcxMDMz FBxwO9dzIrTbZCSokSgoTL phk6BvWLDhHHOtJamtchOl XHBhciBJIGhhdmUgcGVyc2 9uYWxseSByZXZpZXdlZCBh tQkhe7KaA5ylMK1pJ7BtcL XtdnOpnzJeTXchUAXxc7v4 pFHodRmyw2CvyEKrOL96on IsOAToTMV3SYDql1zzFW24 aycwPiPvnY70lnQbwkVeGF Eji5hiA8exwWFci0Awy2Yt poGwUZhdm9FiMX3enMMgiz kjrBV3SNKkfAGmxtXlwwR4 dAsdZHIgoT0rbU4gzHfjzG 5cZqEzSpDjIHygQV8dWOUs D9uscLBsWXHfABUlH6sbOl DfdW9mtVpoOmlvcvK3BMLp cn19 Clinical Information (test code = [id number]) Shivani Schuler is a 47 year old female with IDA1. Gastric polyp x 6 r/o adenoma2.Duodenal Bx, r/o Celiac disease 3. Gastric Bx r/o HPylori Gross Description (test code = 8787646730) k7kuoTZtQFLakMFOAHL0XT CbTT0swCisbGo7uIkyRRZi ceW0fGQtHKduo3giLUX3j5 aldvLTTwndIKHcJT0oYLtv ZZDyQE7pZfTwAXYbXkMlKJ BhcGVydzEyMjQwXHBhcGVy mCT9SXUqNW9uyndvBLkbFU lzFWLbapD4QPEnpWFfO4Qp FPKsKW1cumouCWS1BGAIVg rpNv8huVSwvFmlPaToQrSw YXJzZXQwXGZuaWwgQXJpYW e9xK5RNvrfAQE9HFXURlfm ZjmfzOtle6FmcYAsNUJvET xcaWQgNTEwMDAgXFxkYiBP HuVtIbV4Kgu4EHP8BoY1VY q8APLYARUkDgsrVVD7QfY4 VDb4ADTaXF1fQZukgQWlRU ehKfacQDelZ979TEfnRTVp Y7DaD7ReKPikXdWwFVcxMF ZqPOMwMGgkUKQkC6UFUOJf LKQ3HnNkBRErMPw2LNbbS3 ULFYPcHMOvUjW2UEHzOpN1 ZDl1PGKPUq6eSSdjMnHsXN k2SNA0ESj8OpNdVHSjHwVk MMTcLZJqZEkqnQNaBP5tsH biIBAwNZ7HKNDzFFecENXj EwLgG0MFF7nTTS9gOAxmbX JjaFxmczIyXHBhciANClxw GWKsNQ3CAEIzAAkmWUk4ms HtQLTiKgZdBLRrU57ro5ZU s8DwWD8GEZo5ovSzqjzvhH 2fODMoelNhHYfXkPDcoT9a njGRTXbpLYQxE0QzzpKuTQ gyZXHtjd4ooMjkQInlPnTh bGVkIHdpdGggdGhlIHBhdG fqqvTvN3W2vxPwVX4lRVEP DJKmsH1sZYCzPAPkx4RsqQ BmlOpiV9NvoXBwLwZmi6b6 aQG7PWGwmsAaYNUbbMQbEF Wuye1iNHzlWsGfV5Z8DDNd RUYjm70ycQP0mmKqGsYryO p3gHUhGAI5CH1cyWmoxyIk d2l5nP1uSIJmf0V9OHSug3 W4ICXpayXkgQYbsDDqHLNb MB3hbiJwHR36KQVnAPurMI srBRX3AZW5CWFhjYKno1ap txjiNb6wADlyJZ6lGLqpDH 90NCXzQGwrBYXeL5IsC9E3 JUhuIJGsIWVquKBwiW6dzm KsoiBrpUs0QQJgKBF5zRNh xYasXEXfTjumoBP1THYuKo PdotXdk1HrmId2wILrPDra VUIerU8orT0cRZAjEJDoyv WGBhzzONHwWIlla4BmUQcr cGljWHNhMzAgDQpcZXBpY0 5bt9DRp6Svt3vszEhjy7Oo sHHzYU1mxRGeOM3Es5uxZO PpxQDaFNC8DIlhs7axWBhe SDQ1FIJtVmSsHXKcBQ2XTq LkEQsgSZw3IPhkVQh5GSj9 ES3QZyPoMEQrLpn9OzZ9Ss EiYWb4VAjxEG0EBJK0FGIn KGEmOUgpNRR6YBDaGSd2BP IgXFxzcyAzIFxcZmwgXFxu M76jdXMoWGufTbAvSTfiuF ovZXVtJEO4PF1PCTDhFgTw E3WOL8pVMX7jJazrqwWdLX FutuJLZupxHEWuOF4IZEKc ZUpzLYa0xoMjKQImHzWwSV OmY43on5ICw0KuPG3ETFc0 spKqlodqkE2vHXFongSlj7 IzMFxlcGljWHNiMzAgDQpT jKGweE2rutRDPWsbIVFqA4 JnufNrBIxfLNRuwo0rsMdh IGxhYmVsbGVkIHdpdGggdG mfKQHftBlyuvWxW9Q3beEq QM8iMSNAGTYfbF0cPRHqXW UeIQNyVRVlvU8yIEA1d9Ss lsBqJDBXJXKnuVzoMX92kV BjZWxpYWMgZGlzZWFzZSBh ofNfhjMnj50vciYaq7GaDO 9umXtuMCzQZWqwZuLiXY5e AIVjwxJoa4VlDB3xZJSybH KeHRDbpfbbuHEsWHi7hLGc RTBlTpCmyCaws2MvXEXsDX ggJV38zeUxCR5uLRolIT1q VPlkWN0lUWNnCIGdEKXySr DwqIDeAsQlmMCaDxMqU77o PpZPoWKcv1TyW1iyXU2mdP SgCxojaJFsOVLxeSyuc7Sd hXGfJINtk0IqlYQkPDgqPJ 5xFMM2Sz7poECjDQNcxtA0 i4TcIQmmVUTiMlqwXRMwTD kha8KlRXAjyNNDn4PgXJ1E XHBhciANClxzYTMwXGVwaW TJz9PqALNEYgmqeVjzCcFc mCHsZxO1UQEbhBSeWLR0XN 9ksBabMHQjQQj9QYwyDSVi E6VpT0TxZDddGqNpEIbfWU MtDQKwMGwdZSOqQ0VQSJLz XVF9YgCoRYNqAGb5UOcsH5 PESLXdYQVkMdL2ZIP6WcE5 JFi0QWWIAi8yOKwhLkLaYT IpHxG5RNd4SyGfSNCcSlHa COVjTIRqNPqrhCLaAQ8pjL nnSVTvCSVtOSF4BHIyiIHI w8XoYMCeTPwqQrJyBCJCVG EGUT7GYwWRYECaLbDweIIw UY1SCTGcglFkVAtceZwdqK 1kySQiN0nmNmIuBjuahCfg TmVzdERvYzEgDQpcbHRycG FyXGxpbjBccmluMFxzYjMw KRImcTHRu5DcTLCJVyEtSI NpbWVuIEMgaXMgcmVjZWl2 RFLuyU2lTs7tlSKthS2hvJ NxYFcdZYChh3y9rJM5iDEo wFV5uKYozWacEmBeKJ9kfC UsAADXRQ80dMJpyyHzCHZa eJ6wUFFbOYQoTIS2esysHP LFIBC9aFCzx8V1VGovDXT6 iH1pdMopKuTfF7K5PUWsIJ Pkf22saVG2bwQgOkQiUEVv bc4vgH3dWIsguiTtbVjuvu Zhf3S2FLNdc8I3GWCnguHh hSJejWTxROLgVgS9NMFvDe D6VEScCIUfjEQqCWNkKD1a VGhlIHNwZWNpbWVuIGlzIG VraWIlqdUuCYMkey27X8yu LIYkiJ0zx9gfHkUpYGWuTI MjrTCdtPS7PFBgsG5kbY46 puKhhqTZIQ6dhZYbOC2DWE NiMFxlcGljWHNiMCANClxw ZCXgPQidj6KhFFgibAxoIZ GjGzGnQHsNdWabNWVQR0ix wOHxTEvmIUFHKEaYD6AOPQ 8CZYZhkSMQJNW8EQ7mBEod SIVqM4ArB4TdgeC5q6izuJ mct9DvqTOgNK5bvSMyIF8O XHBhcmQgDQp9 Disclaimer (test code = [id number]) a3pjcYVcGAXzy9rvKEKmpM FuZzEwMzNcZnRuYmpcdWMx DDzvqvTkNZhhs7DaL0XbZf AwMFxhbnNpXGRlZmxhbmcx JIOzZAT0qnSgBPSxNXfuCR CgKVpmQl8vsOSdiIiyUrRk JGYfh1bkrbFISUxpJqTgH3 77ELIpTLkdr1rwl6QrEAGk aFTvd0J7XEPVmudhsYj0yB vkJ70qz6H8TuxdG6ofCESy XTHyR2ReLC4cPDGxJkp7PY R0AFU3ZXWhBGEvQ5SzYK7r QURssEXqPWn3t1ycgIimDI HzQKG2r3ydLMcpipWpOE0g wv5hgYb2j0rfvnAoIQSdOA QclGYANNAkR4TevJluGk9y fAy2vEybPugqDSI6Vty2PU 2wsu71xgt4kLhhWPVcgvqc AhO1IFnlBKSgblmrQOr2AZ ojQQOheEK5HYXdiPIhR0Ir YEVrYB7xwog5IOO5ANehET AoTuY4JASqvBJqTRTokUht QAcrh492JGG8OeFkVR2hZ2 Rag3C3uO8akOKjXSOidJEb FkLaDAAlrd6baHIoKMqap0 HcRPU4dcI5lWSuzKSkGLLv IJ43Ozlxr1NgHfhnm1JaL9 7kzIL5QXvly9byUI9qTxF2 dzCsFAjoe0iveP5yAhF5KO eiOB3rTZ9vZDGqfW1sppun XHBnYnJkcmhlYWRccGdicm UpPr1rzNuvFTX4TRzfL4xs tN2zYoK0MZgxD1urxG4hFU f6XXgdnAY9PIBxvT0xQM1n zepfo8nxFJamISnqXGUnju O8xtY1ZFQecPHcA8IkcN0w YSSsWR6lcytjk3gtWCJ5TX inBIErISY5KaVkVJAeu5Sh mri4LbBky8VnlDDhGMxvW1 3pf883BEDdfmAeE7xbhEQn ewuvuUCmeyzlSTewurW3MD OwnbXom9UzRREsPVB6ZSvi FPpxjWEjXPFmqVuez2bmR8 RscGFyXHBsYWluXGYxXGZz MjBcbGFuZzEwMzNcaGljaF yxHKfkRkTuFHWiUVveJ1bt UkGwS3JtUDTwIrPixUTwB6 ggVGhpcyByZXBvcnQgbWF5 RJylE7t3KHAlrlRdeFj7kh DoYdTfPBQoYER4WSmkfGRj PFVwr2HgkketcBJoTm6qeB FoJXRhbH1mLNIeGGBuXEmd MC6oiVm1XAABeXRmgZHsOs EDLHUhDA97qbAbCXNSvalg f9Q5ZGcsFJNfi7MgdMWmX0 mey1RdSRPzv28dGY1is2I6 n3yjVEN7MC2xa7WvCZTtkF GtvZGiRTOcv2Zdjftmo9Ga BBCemhYur3GeUHArojPpqW QeRBKnzqPkwb0aggYmSTDi PHNyE1NrkbddbGaxwuBhKY Abzd4bwjMjHCB8PHSCSKMk CRSyy6WikY4wkRNYEDU2tP Rfsw5eecBBjJWnPMPtsy77 QAOpII8tZ6avZYSoMCBkya WcnDJii3JbIHMgyIY7gJGh TN9CNeCSv66nLZJvGOTHtc SgEJRqdKmjyTN5ynE2xE4j IChGREEpLlx+IFRoZSBGRE TvIC4ymeMrv0GdbpPkiTak XGWkwQQdr4MyuXTmh7KzwP qoe4HfgVKiwWWxPU6vBEEr clxwYXIgVVRNQiBMYWJvcm C7o1AgXMXgMIQpHWL9qPrw dzu9HCSfdT1oRNZlC8hpam yiAIanRWZjg0YavR1ohXGO zZPlx8NjbCAmkAVTaZOoAJ 8rxkUuQYkUJLgRVPI0lwUy FYIje9WtOIvkD9hnZ79ekU wkcBp4wDL6ATZ7kG0wKvb+ IFxwYXJccGFyIEFwcHJvcH IyVXQtbMzctmRbQ7IxkmUt yE9hrTBebzMaSN1gKH4jO9 Y2eNFtQAAxaxHjx8fxEKrb dmUgYmVlbiByZXZpZXdlZC Fau0AuIBsiSWQ7LXvtotRl bmNsdWRpbmcgSCZFLCBTcG GdjEPuZXY9WLbkmbCsqvYa FD0brA4ymHpprD8plWGqhU Q0bpruETFiCLNvqMcpLORd NX3csUxroZ7lYgZlXoKlKK nxBL1kLNGyF1iqrQPwZEYt OTCpM3guMhBnbJ4hsBqzZW xjZjJcZnMyMFxwYXJccGFy XHBsYWluXGYxXGZzMjBcbG FuZzEwMzNcaGljaFxmMVxk JwLyUOHqSLyeU8ywMaGfY3 BoCJDjKiNtdNLgO6vkRClm VUH9EWLxKN5fgITuMK53kP Lmf5yyWOkjdCuikj9qP32s nQHcEQtcpQwoEAGuk60qo2 AzNKKnznYyiu5aBBGbhyL7 bD1aEXPxqVtmMHMbkDSwJN Hke8GjTRuypIIhhkLlQZfb JMUhCMYvbNBoudU6yyNjxs GtgxTvRXKgpZorRHAzd5Ft CZAfTEncf3Ljkc0hbHSnQX JdckIHzXjqvWXxxE3fJ8Kt OQYqSKIoym0yWQXhsS8mOL ivp2HjrcxpXLRyNISdUFBf ukSdke6tGVSoyPYZIK1RYZ nxmAVox6AgfjKtH2nLYTG5 NUQwNjYwMjgxKSBleGNlcH ScWWZmxq15PMNaaN2phSwq ECBwgO7vzD3vjOsdkD1mRo ZzLcGkKVdgKB5fRLWxI7qm nQOiVVFqOPTkB9zwNtEqxT 9jaFxmMVxjZjJcZnMyMFxw YXJ9fQ== Embedded Images (test code = 4542617940) [facility]. METABOLIC PANEL ([id number])2022-11-03 17:25:32* Test Item Value Reference Range Interpretation Comme nts NA (test code = 7191873549) 139 mmol/L 135-145 K (test code = 9865631072) 4.2 mmol/L 3.5-5.0 CL (test code = 5037718672) 105 mmol/L 98-108 CO2 TOTAL (test code = 7114098155) 26 mmol/L 23-31 AGAP (test code = 8636924881) 8 2-16 BUN (test code = 8221917005) 9 mg/dL 7-23 GLUCOSE (test code = 4009183958) 93 mg/dL 70-110 CREATININE (test code = 8916664081) 0.60 mg/dL 0.50-1.04 TOTAL BILI (test code = 8868682022) 0.2 mg/dL 0.1-1.1 CALCIUM (test code = 9317917674) 9.2 mg/dL 8.6-10.6 T PROTEIN (test code = 0620440651) 7.0 g/dL 6.3-8.2 ALBUMIN (test code = 0916394704) 4.2 g/dL 3.5-5.0 ALK PHOS (test code = 2457200719) 118 U/L 34-122 ALTv (test code = 1742-6) 34 U/L 5-35 AST(SGOT) (test code = 6156172505) 34 U/L 13-40 eGFR (test code = 6991448537) 108.1 mL/min/1.73m2 ZAINAB (test code = ZAINAB) [...] or urine or abnormalities in imaging tests). [facility]. METABOLIC PANEL ([id number])2022-11-03 17:25:32* Test Item Value Reference Range Interpretation Comme nts NA (test code = 2359353803) 139 mmol/L 135-145 K (test code = 2761166247) 4.2 mmol/L 3.5-5.0 CL (test code = 7754363944) 105 mmol/L 98-108 CO2 TOTAL (test code = 0485673385) 26 mmol/L 23-31 AGAP (test code = 2151103045) 8 2-16 BUN (test code = 9837104135) 9 mg/dL 7-23 GLUCOSE (test code = 0589209553) 93 mg/dL 70-110 CREATININE (test code = 1649673378) 0.60 mg/dL 0.50-1.04 TOTAL BILI (test code = 0113104770) 0.2 mg/dL 0.1-1.1 CALCIUM (test code = 1851790293) 9.2 mg/dL 8.6-10.6 T PROTEIN (test code = 3939928876) 7.0 g/dL 6.3-8.2 ALBUMIN (test code = 5266326362) 4.2 g/dL 3.5-5.0 ALK PHOS (test code = 5724585865) 118 U/L 34-122 ALTv (test code = 1742-6) 34 U/L 5-35 AST(SGOT) (test code = 9072764308) 34 U/L 13-40 eGFR (test code = 5567342931) 108.1 mL/min/1.73m2 ZAINAB (test code = ZAINAB) [...] or urine or abnormalities in imaging tests). [facility] ([id number])2022-11-03 17:25:32* Test Item Value Reference Range Interpretation Comme nts NA (test code = 1936482947) 139 mmol/L 135-145 K (test code = 4296723705) 4.2 mmol/L 3.5-5.0 CL (test code = 6953635050) 105 mmol/L 98-108 CO2 TOTAL (test code = 2444636824) 26 mmol/L 23-31 AGAP (test code = 7431094903) 8 2-16 BUN (test code = 0188137395) 9 mg/dL 7-23 GLUCOSE (test code = 4368529862) 93 mg/dL 70-110 CREATININE (test code = 2930507152) 0.60 mg/dL 0.50-1.04 TOTAL BILI (test code = 3749517381) 0.2 mg/dL 0.1-1.1 CALCIUM (test code = 7808913519) 9.2 mg/dL 8.6-10.6 T PROTEIN (test code = 1729204968) 7.0 g/dL 6.3-8.2 ALBUMIN (test code = 6922146675) 4.2 g/dL 3.5-5.0 ALK PHOS (test code = 0765858120) 118 U/L 34-122 ALTv (test code = 1742-6) 34 U/L 5-35 AST(SGOT) (test code = 7851424534) 34 U/L 13-40 eGFR (test code = 7883401087) 108.1 mL/min/1.73m2 ZAINAB (test code = ZAINAB) [...] or urine or abnormalities in imaging tests). [facility] ([id number])2022-11-03 17:25:32* Test Item Value Reference Range Interpretation Comme nts NA (test code = 5960236037) 139 mmol/L 135-145 K (test code = 6150934471) 4.2 mmol/L 3.5-5.0 CL (test code = 3981189419) 105 mmol/L 98-108 CO2 TOTAL (test code = 9775768351) 26 mmol/L 23-31 AGAP (test code = 7882599780) 8 2-16 BUN (test code = 0279906746) 9 mg/dL 7-23 GLUCOSE (test code = 1009624346) 93 mg/dL 70-110 CREATININE (test code = 2565601232) 0.60 mg/dL 0.50-1.04 TOTAL BILI (test code = 2945974966) 0.2 mg/dL 0.1-1.1 CALCIUM (test code = 3342388272) 9.2 mg/dL 8.6-10.6 T PROTEIN (test code = 2290402612) 7.0 g/dL 6.3-8.2 ALBUMIN (test code = 9219900493) 4.2 g/dL 3.5-5.0 ALK PHOS (test code = 1329220169) 118 U/L 34-122 ALTv (test code = 1742-6) 34 U/L 5-35 AST(SGOT) (test code = 7478305314) 34 U/L 13-40 eGFR (test code = 5271704677) 108.1 mL/min/1.73m2 ZAINAB (test code = ZAINAB) [...] or urine or abnormalities in imaging tests). [facility]. METABOLIC PANEL ([id number])2022-11-03 17:25:32* Test Item Value Reference Range Interpretation Comme nts NA (test code = 0602621661) 139 mmol/L 135-145 K (test code = 7395182809) 4.2 mmol/L 3.5-5.0 CL (test code = 5276493953) 105 mmol/L 98-108 CO2 TOTAL (test code = 1949976017) 26 mmol/L 23-31 AGAP (test code = 6577540643) 8 2-16 BUN (test code = 3562519019) 9 mg/dL 7-23 GLUCOSE (test code = 5927142030) 93 mg/dL 70-110 CREATININE (test code = 7836535669) 0.60 mg/dL 0.50-1.04 TOTAL BILI (test code = 0827204922) 0.2 mg/dL 0.1-1.1 CALCIUM (test code = 7505309463) 9.2 mg/dL 8.6-10.6 T PROTEIN (test code = 3490731457) 7.0 g/dL 6.3-8.2 ALBUMIN (test code = 5088012364) 4.2 g/dL 3.5-5.0 ALK PHOS (test code = 8987883569) 118 U/L 34-122 ALTv (test code = 1742-6) 34 U/L 5-35 AST(SGOT) (test code = 0397177065) 34 U/L 13-40 eGFR (test code = 6476940510) 108.1 mL/min/1.73m2 ZAINAB (test code = ZAINAB) [...] or urine or abnormalities in imaging tests). [facility]. METABOLIC PANEL ([id number])2022-11-03 17:25:32* Test Item Value Reference Range Interpretation Comme nts NA (test code = 4195831647) 139 mmol/L 135-145 K (test code = 5888511287) 4.2 mmol/L 3.5-5.0 CL (test code = 1052596103) 105 mmol/L 98-108 CO2 TOTAL (test code = 3143461650) 26 mmol/L 23-31 AGAP (test code = 9244661708) 8 2-16 BUN (test code = 1321578914) 9 mg/dL 7-23 GLUCOSE (test code = 4792564697) 93 mg/dL 70-110 CREATININE (test code = 7541556387) 0.60 mg/dL 0.50-1.04 TOTAL BILI (test code = 2550090623) 0.2 mg/dL 0.1-1.1 CALCIUM (test code = 0970750651) 9.2 mg/dL 8.6-10.6 T PROTEIN (test code = 6972204638) 7.0 g/dL 6.3-8.2 ALBUMIN (test code = 0171629666) 4.2 g/dL 3.5-5.0 ALK PHOS (test code = 9112537246) 118 U/L 34-122 ALTv (test code = 1742-6) 34 U/L 5-35 AST(SGOT) (test code = 4747508691) 34 U/L 13-40 eGFR (test code = 6874008584) 108.1 mL/min/1.73m2 ZAINAB (test code = ZAINAB) [...] or urine or abnormalities in imaging tests). [facility] METABOLIC PANEL ([id number])2022-11-03 17:25:32* Test Item Value Reference Range Interpretation Comme nts NA (test code = 4679325014) 139 mmol/L 135-145 K (test code = 9401559598) 4.2 mmol/L 3.5-5.0 CL (test code = 5027013009) 105 mmol/L 98-108 CO2 TOTAL (test code = 9512721445) 26 mmol/L 23-31 AGAP (test code = 5208703569) 8 2-16 BUN (test code = 1465025777) 9 mg/dL 7-23 GLUCOSE (test code = 1999506324) 93 mg/dL 70-110 CREATININE (test code = 4787920233) 0.60 mg/dL 0.50-1.04 TOTAL BILI (test code = 4007141091) 0.2 mg/dL 0.1-1.1 CALCIUM (test code = 7110612178) 9.2 mg/dL 8.6-10.6 T PROTEIN (test code = 0962299995) 7.0 g/dL 6.3-8.2 ALBUMIN (test code = 4453602274) 4.2 g/dL 3.5-5.0 ALK PHOS (test code = 0286143757) 118 U/L 34-122 ALTv (test code = 1742-6) 34 U/L 5-35 AST(SGOT) (test code = 8773379686) 34 U/L 13-40 eGFR (test code = 0991582340) 108.1 mL/min/1.73m2 ZAINAB (test code = ZAINAB) [...] or urine or abnormalities in imaging tests). [facility] METABOLIC PANEL (55971)2022-11-03 17:25:32* Test Item Value Reference Range Interpretation Comme nts NA (test code = 5614133778) 139 mmol/L 135-145 K (test code = 9984195139) 4.2 mmol/L 3.5-5.0 CL (test code = 6036048986) 105 mmol/L 98-108 CO2 TOTAL (test code = 9185647818) 26 mmol/L 23-31 AGAP (test code = 4001395169) 8 2-16 BUN (test code = 8311543907) 9 mg/dL 7-23 GLUCOSE (test code = 9627680245) 93 mg/dL 70-110 CREATININE (test code = 1317550997) 0.60 mg/dL 0.50-1.04 TOTAL BILI (test code = 2874011916) 0.2 mg/dL 0.1-1.1 CALCIUM (test code = 3652735887) 9.2 mg/dL 8.6-10.6 T PROTEIN (test code = 6665211219) 7.0 g/dL 6.3-8.2 ALBUMIN (test code = 5399809651) 4.2 g/dL 3.5-5.0 ALK PHOS (test code = 8907844956) 118 U/L 34-122 ALTv (test code = 1742-6) 34 U/L 5-35 AST(SGOT) (test code = 1672777444) 34 U/L 13-40 eGFR (test code = 1784781174) 108.1 mL/min/1.73m2 ZAINAB (test code = ZAINAB) [...] or urine or abnormalities in imaging tests). [facility] METABOLIC PANEL (78241)2022-11-03 17:25:32* Test Item Value Reference Range Interpretation Comme nts NA (test code = 5722918442) 139 mmol/L 135-145 K (test code = 1478789831) 4.2 mmol/L 3.5-5.0 CL (test code = 5537799206) 105 mmol/L 98-108 CO2 TOTAL (test code = 4480458626) 26 mmol/L 23-31 AGAP (test code = 4734798838) 8 2-16 BUN (test code = 5152340046) 9 mg/dL 7-23 GLUCOSE (test code = 2593508210) 93 mg/dL 70-110 CREATININE (test code = 0510488082) 0.60 mg/dL 0.50-1.04 TOTAL BILI (test code = 7061954142) 0.2 mg/dL 0.1-1.1 CALCIUM (test code = 3988945476) 9.2 mg/dL 8.6-10.6 T PROTEIN (test code = 7945742203) 7.0 g/dL 6.3-8.2 ALBUMIN (test code = 7699416458) 4.2 g/dL 3.5-5.0 ALK PHOS (test code = 0232567424) 118 U/L 34-122 ALTv (test code = 1742-6) 34 U/L 5-35 AST(SGOT) (test code = 5517809430) 34 U/L 13-40 eGFR (test code = 11446-6) 108.1 mL/min/1.73m2 ZAINAB (test code = ZAINAB) [...] or urine or abnormalities in imaging tests). [facility] METABOLIC PANEL (74628)2022-11-03 17:25:32* Test Item Value Reference Range Interpretation Comme nts NA (test code = 5914406908) 139 mmol/L 135-145 K (test code = 6639856902) 4.2 mmol/L 3.5-5.0 CL (test code = 1951196564) 105 mmol/L 98-108 CO2 TOTAL (test code = 7701734507) 26 mmol/L 23-31 AGAP (test code = 1886934743) 8 2-16 BUN (test code = 9354044190) 9 mg/dL 7-23 GLUCOSE (test code = 6602198110) 93 mg/dL 70-110 CREATININE (test code = 9009597850) 0.60 mg/dL 0.50-1.04 TOTAL BILI (test code = 0868176579) 0.2 mg/dL 0.1-1.1 CALCIUM (test code = 2154607937) 9.2 mg/dL 8.6-10.6 T PROTEIN (test code = 5311429837) 7.0 g/dL 6.3-8.2 ALBUMIN (test code = 2220059906) 4.2 g/dL 3.5-5.0 ALK PHOS (test code = 8371833437) 118 U/L 34-122 ALTv (test code = 1742-6) 34 U/L 5-35 AST(SGOT) (test code = 5837239923) 34 U/L 13-40 eGFR (test code = 69371-0) 108.1 mL/min/1.73m2 ZAINAB (test code = ZAINAB) [...] or urine or abnormalities in imaging tests). [facility] METABOLIC PANEL ([id number])2022-11-03 17:25:32* Test Item Value Reference Range Interpretation Comme nts NA (test code = 0716036008) 139 mmol/L 135-145 K (test code = 6061141243) 4.2 mmol/L 3.5-5.0 CL (test code = 7236689069) 105 mmol/L 98-108 CO2 TOTAL (test code = 1017106287) 26 mmol/L 23-31 AGAP (test code = 3854308821) 8 2-16 BUN (test code = 3902793244) 9 mg/dL 7-23 GLUCOSE (test code = 0039006486) 93 mg/dL 70-110 CREATININE (test code = 4968338201) 0.60 mg/dL 0.50-1.04 TOTAL BILI (test code = 6214777733) 0.2 mg/dL 0.1-1.1 CALCIUM (test code = 4282174554) 9.2 mg/dL 8.6-10.6 T PROTEIN (test code = 1886008253) 7.0 g/dL 6.3-8.2 ALBUMIN (test code = 5724355374) 4.2 g/dL 3.5-5.0 ALK PHOS (test code = 1766002075) 118 U/L 34-122 ALTv (test code = 1742-6) 34 U/L 5-35 AST(SGOT) (test code = 1824976606) 34 U/L 13-40 eGFR (test code = 71428-4) 108.1 mL/min/1.73m2 ZAINAB (test code = ZAINAB) [...] or urine or abnormalities in imaging tests). [facility] METABOLIC PANEL ([id number])2022-11-03 17:25:32* Test Item Value Reference Range Interpretation Comme nts NA (test code = 1162943808) 139 mmol/L 135-145 K (test code = 5286258415) 4.2 mmol/L 3.5-5.0 CL (test code = 6590501751) 105 mmol/L 98-108 CO2 TOTAL (test code = 6640309352) 26 mmol/L 23-31 AGAP (test code = 4254183976) 8 2-16 BUN (test code = 8071151769) 9 mg/dL 7-23 GLUCOSE (test code = 5343128304) 93 mg/dL 70-110 CREATININE (test code = 6804395900) 0.60 mg/dL 0.50-1.04 TOTAL BILI (test code = 2467543035) 0.2 mg/dL 0.1-1.1 CALCIUM (test code = 7467522476) 9.2 mg/dL 8.6-10.6 T PROTEIN (test code = 5609879706) 7.0 g/dL 6.3-8.2 ALBUMIN (test code = 8452732568) 4.2 g/dL 3.5-5.0 ALK PHOS (test code = 1619798863) 118 U/L 34-122 ALTv (test code = 1742-6) 34 U/L 5-35 AST(SGOT) (test code = 9931453841) 34 U/L 13-40 eGFR (test code = 76439-8) 108.1 mL/min/1.73m2 ZAINAB (test code = ZAINAB) [...] or urine or abnormalities in imaging tests). [facility] METABOLIC PANEL ([id number])2022-11-03 17:25:32* Test Item Value Reference Range Interpretation Comme nts NA (test code = 5360813075) 139 mmol/L 135-145 K (test code = 5991450363) 4.2 mmol/L 3.5-5.0 CL (test code = 3386173409) 105 mmol/L 98-108 CO2 TOTAL (test code = 8247850029) 26 mmol/L 23-31 AGAP (test code = 1802673465) 8 2-16 BUN (test code = 1761078634) 9 mg/dL 7-23 GLUCOSE (test code = 6444046494) 93 mg/dL 70-110 CREATININE (test code = 5632256750) 0.60 mg/dL 0.50-1.04 TOTAL BILI (test code = 1993525757) 0.2 mg/dL 0.1-1.1 CALCIUM (test code = 2545610423) 9.2 mg/dL 8.6-10.6 T PROTEIN (test code = 1013449286) 7.0 g/dL 6.3-8.2 ALBUMIN (test code = 1352965070) 4.2 g/dL 3.5-5.0 ALK PHOS (test code = 0682364184) 118 U/L 34-122 ALTv (test code = 1742-6) 34 U/L 5-35 AST(SGOT) (test code = 4283906511) 34 U/L 13-40 eGFR (test code = 26458-7) 108.1 mL/min/1.73m2 ZAINAB (test code = ZAINAB) [...] or urine or abnormalities in imaging tests). [facility] METABOLIC PANEL (69600)2022-11-03 17:25:32* Test Item Value Reference Range Interpretation Comme nts NA (test code = 8677016495) 139 mmol/L 135-145 K (test code = 3822154406) 4.2 mmol/L 3.5-5.0 CL (test code = 7772393729) 105 mmol/L 98-108 CO2 TOTAL (test code = 8283311496) 26 mmol/L 23-31 AGAP (test code = 1204279776) 8 2-16 BUN (test code = 1564487877) 9 mg/dL 7-23 GLUCOSE (test code = 4702813741) 93 mg/dL 70-110 CREATININE (test code = 3583968461) 0.60 mg/dL 0.50-1.04 TOTAL BILI (test code = 7232226450) 0.2 mg/dL 0.1-1.1 CALCIUM (test code = 5872610929) 9.2 mg/dL 8.6-10.6 T PROTEIN (test code = 0534340903) 7.0 g/dL 6.3-8.2 ALBUMIN (test code = 0393803832) 4.2 g/dL 3.5-5.0 ALK PHOS (test code = 6611890261) 118 U/L 34-122 ALTv (test code = 1742-6) 34 U/L 5-35 AST(SGOT) (test code = 5070916216) 34 U/L 13-40 eGFR (test code = 72512-6) 108.1 mL/min/1.73m2 ZAINAB (test code = ZAINAB) [...] or urine or abnormalities in imaging tests). [facility]. METABOLIC PANEL ([id number])2022-11-03 17:25:32* Test Item Value Reference Range Interpretation Comme nts NA (test code = 0244263295) 139 mmol/L 135-145 K (test code = 0822524370) 4.2 mmol/L 3.5-5.0 CL (test code = 5302665502) 105 mmol/L 98-108 CO2 TOTAL (test code = 5118126102) 26 mmol/L 23-31 AGAP (test code = 9524113826) 8 2-16 BUN (test code = 9009285394) 9 mg/dL 7-23 GLUCOSE (test code = 6672752447) 93 mg/dL 70-110 CREATININE (test code = 0059366260) 0.60 mg/dL 0.50-1.04 TOTAL BILI (test code = 5988267424) 0.2 mg/dL 0.1-1.1 CALCIUM (test code = 3118294032) 9.2 mg/dL 8.6-10.6 T PROTEIN (test code = 1089421466) 7.0 g/dL 6.3-8.2 ALBUMIN (test code = 9903955536) 4.2 g/dL 3.5-5.0 ALK PHOS (test code = 3514493098) 118 U/L 34-122 ALTv (test code = 1742-6) 34 U/L 5-35 AST(SGOT) (test code = 7538896301) 34 U/L 13-40 eGFR (test code = 60624-4) 108.1 mL/min/1.73m2 ZAINAB (test code = ZAINAB) [...] or urine or abnormalities in imaging tests). [facility]. METABOLIC PANEL ([id number])2022-11-03 17:25:32* Test Item Value Reference Range Interpretation Comme nts NA (test code = 9953721658) 139 mmol/L 135-145 K (test code = 7147273847) 4.2 mmol/L 3.5-5.0 CL (test code = 2621340510) 105 mmol/L 98-108 CO2 TOTAL (test code = 1160181052) 26 mmol/L 23-31 AGAP (test code = 5627561879) 8 2-16 BUN (test code = 3993999219) 9 mg/dL 7-23 GLUCOSE (test code = 2048925942) 93 mg/dL 70-110 CREATININE (test code = 7015099823) 0.60 mg/dL 0.50-1.04 TOTAL BILI (test code = 3984561818) 0.2 mg/dL 0.1-1.1 CALCIUM (test code = 2500941154) 9.2 mg/dL 8.6-10.6 T PROTEIN (test code = 5887884039) 7.0 g/dL 6.3-8.2 ALBUMIN (test code = 3114894246) 4.2 g/dL 3.5-5.0 ALK PHOS (test code = 1107547078) 118 U/L 34-122 ALTv (test code = 1742-6) 34 U/L 5-35 AST(SGOT) (test code = 1831171340) 34 U/L 13-40 eGFR (test code = 25521-5) 108.1 mL/min/1.73m2 ZAINAB (test code = ZAINAB) [...] or urine or abnormalities in imaging tests). [facility]. METABOLIC PANEL ([id number])2022-11-03 17:25:32* Test Item Value Reference Range Interpretation Comme nts NA (test code = 2050445509) 139 mmol/L 135-145 K (test code = 1673534142) 4.2 mmol/L 3.5-5.0 CL (test code = 6799835893) 105 mmol/L 98-108 CO2 TOTAL (test code = 9122041635) 26 mmol/L 23-31 AGAP (test code = 4697208290) 8 2-16 BUN (test code = 2569314358) 9 mg/dL 7-23 GLUCOSE (test code = 9872806613) 93 mg/dL 70-110 CREATININE (test code = 4198943972) 0.60 mg/dL 0.50-1.04 TOTAL BILI (test code = 9736098780) 0.2 mg/dL 0.1-1.1 CALCIUM (test code = 2226634425) 9.2 mg/dL 8.6-10.6 T PROTEIN (test code = 8930700709) 7.0 g/dL 6.3-8.2 ALBUMIN (test code = 8306602381) 4.2 g/dL 3.5-5.0 ALK PHOS (test code = 4140883789) 118 U/L 34-122 ALTv (test code = 1742-6) 34 U/L 5-35 AST(SGOT) (test code = 2446797932) 34 U/L 13-40 eGFR (test code = 94234-6) 108.1 mL/min/1.73m2 ZAINAB (test code = ZAINAB) [...] or urine or abnormalities in imaging tests). [facility]. METABOLIC PANEL ([id number])2022-11-03 17:25:32* Test Item Value Reference Range Interpretation Comme nts NA (test code = 2580119613) 139 mmol/L 135-145 K (test code = 1216000315) 4.2 mmol/L 3.5-5.0 CL (test code = 4666308544) 105 mmol/L 98-108 CO2 TOTAL (test code = 3055598509) 26 mmol/L 23-31 AGAP (test code = 1491646181) 8 2-16 BUN (test code = 9756007747) 9 mg/dL 7-23 GLUCOSE (test code = 0038522402) 93 mg/dL 70-110 CREATININE (test code = 7418917325) 0.60 mg/dL 0.50-1.04 TOTAL BILI (test code = 5016967492) 0.2 mg/dL 0.1-1.1 CALCIUM (test code = 6111274135) 9.2 mg/dL 8.6-10.6 T PROTEIN (test code = 3455471286) 7.0 g/dL 6.3-8.2 ALBUMIN (test code = 2596648752) 4.2 g/dL 3.5-5.0 ALK PHOS (test code = 2013029441) 118 U/L 34-122 ALTv (test code = 1742-6) 34 U/L 5-35 AST(SGOT) (test code = 0349528270) 34 U/L 13-40 eGFR (test code = 53019-1) 108.1 mL/min/1.73m2 ZAINAB (test code = ZAINAB) [...] or urine or abnormalities in imaging tests). [facility] WITH [id number] 17:18:52* Test Item Value Reference Range Interpretation Comme nts WBC (test code = 6690-2) 7.41 See_Comment [Automated [employer]] The system which generated this result transmitted reference range: 4.30 - 11.10 10*3/?L. The reference range was not used to interpret this result as normal/abnormal. RBC (test code = 789-8) 4.20 See_Comment [[employer]] The system which generated this result transmitted [...] g/dL 31.6-35.1 L RDW-SD (test code = 89117-1) 46.2 fL 39.0-49.9 RDW-CV (test code = 788-0) 17.9 % 12.0-15.5 H PLT (test code = 777-3) 304 See_Comment [Automated messa ge] The system which generated this result transmitted reference range: 166 - 358 10*3/?L. The reference range was not used to interpret this result as normal/abnormal. MPV (test code = 89001-2) 11.0 fL 9.5-12.9 NRBC/100 WBC (test code = 9023725906) 0.0 See_Comment [Automated me ssage] The system which generated this result transmitted reference range: 0.0 - 10.0 /100 WBCs. The reference range was not used to interpret this result as normal/abnormal. NRBC x10^3 (test code = 1683356192) See_Comment [Automated messa ge] The system which generated this result transmitted reference range: 10*3/?L. The reference range was not used to interpret this result as normal/abnormal. GRAN MAT (NEUT) % (test code = 770-8) 68.6 % IMM GRAN % (test code = 5451428886) 0.70 % LYMPH % (test code = 736-9) 19.8 % MONO % (test code = 5905-5) 5.3 % EOS % (test code = 713-8) 5.1 % BASO % (test code = 706-2) 0.5 % GRAN MAT x10^3(ANC) (test code = 2284747827) 5.08 10*3/uL 1.88-7.09 IMM GRAN x10^3 (test code = 5441976053) 0.05 10*3/uL 0.00-0.06 LYMPH x10^3 (test code = 731-0) 1.47 10*3/uL 1.32-3.29 MONO x10^3 (test code = 742-7) 0.39 10*3/uL 0.33-0.92 EOS x10^3 (test code = 711-2) 0.38 10*3/uL 0.03-0.39 BASO x10^3 (test code = 704-7) 0.04 10*3/uL 0.01-0.07 Lab Interpretation (test code = 51077-3) Abnormal [facility] WITH [id number] 17:18:52* Test Item Value Reference Range Interpretation [...] g/dL 31.6-35.1 L RDW-SD (test code = 59014-9) 46.2 fL 39.0-49.9 RDW-CV (test code = 788-0) 17.9 % 12.0-15.5 H PLT (test code = 777-3) 304 See_Comment [Automated messa ge] The system which generated this result transmitted reference range: 166 - 358 10*3/?L. The reference range was not used to interpret this result as normal/abnormal. MPV (test code = 24475-2) 11.0 fL 9.5-12.9 NRBC/100 WBC (test code = 8559892572) 0.0 See_Comment [Automated [employer]] The system which generated this result transmitted reference range: 0.0 - 10.0 /100 WBCs. The reference range was not used to interpret this result as normal/abnormal. NRBC x10^3 (test code = 2897562028) See_Comment [Automated messa ge] The system which generated this result transmitted reference range: 10*3/?L. The reference range was not used to interpret this result as normal/abnormal. GRAN MAT (NEUT) % (test code = 770-8) 68.6 % IMM GRAN % (test code = 5755850940) 0.70 % LYMPH % (test code = 736-9) 19.8 % MONO % (test code = 5905-5) 5.3 % EOS % (test code = 713-8) 5.1 % BASO % (test code = 706-2) 0.5 % GRAN MAT x10^3(ANC) (test code = 4702770010) 5.08 10*3/uL 1.88-7.09 IMM GRAN x10^3 (test code = 6113749999) 0.05 10*3/uL 0.00-0.06 LYMPH x10^3 (test code = 731-0) 1.47 10*3/uL 1.32-3.29 MONO x10^3 (test code = 742-7) 0.39 10*3/uL 0.33-0.92 EOS x10^3 (test code = 711-2) 0.38 10*3/uL 0.03-0.39 BASO x10^3 (test code = 704-7) 0.04 10*3/uL 0.01-0.07 Lab Interpretation (test code = 76517-1) Abnormal [facility] WITH [id number] 17:18:52* Test Item Value Reference Range Interpretation [...] g/dL 31.6-35.1 L RDW-SD (test code = 47175-3) 46.2 fL 39.0-49.9 RDW-CV (test code = 788-0) 17.9 % 12.0-15.5 H PLT (test code = 777-3) 304 See_Comment [Automated [employer]] The system which generated this result transmitted reference range: 166 - 358 10*3/?L. The reference range was not used to interpret this result as normal/abnormal. MPV (test code = 95822-5) 11.0 fL 9.5-12.9 NRBC/100 WBC (test code = 8298046896) 0.0 See_Comment [Automated [employer]] The system which generated this result transmitted reference range: 0.0 - 10.0 /100 WBCs. The reference range was not used to interpret this result as normal/abnormal. NRBC x10^3 (test code = 0850967500) See_Comment [Automated [employer]] The system which generated this result transmitted reference range: 10*3/?L. The reference range was not used to interpret this result as normal/abnormal. GRAN MAT (NEUT) % (test code = 770-8) 68.6 % IMM GRAN % (test code = 5101721683) 0.70 % LYMPH % (test code = 736-9) 19.8 % MONO % (test code = 5905-5) 5.3 % EOS % (test code = 713-8) 5.1 % BASO % (test code = 706-2) 0.5 % GRAN MAT x10^3(ANC) (test code = 7771399086) 5.08 10*3/uL 1.88-7.09 IMM GRAN x10^3 (test code = 2099872471) 0.05 10*3/uL 0.00-0.06 LYMPH x10^3 (test code = 731-0) 1.47 10*3/uL 1.32-3.29 MONO x10^3 (test code = 742-7) 0.39 10*3/uL 0.33-0.92 EOS x10^3 (test code = 711-2) 0.38 10*3/uL 0.03-0.39 BASO x10^3 (test code = 704-7) 0.04 10*3/uL 0.01-0.07 Lab Interpretation (test code = 39405-9) Abnormal [facility] WITH [id number] 17:18:52* Test Item Value Reference Range Interpretation Comme nts WBC (test code = 6690-2) 7.41 See_Comment [Automated [employer]] The system which generated this result transmitted reference range: 4.30 - 11.10 10*3/?L. The reference range was not used to interpret this result as normal/abnormal. RBC (test code = 789-8) 4.20 See_Comment [Automated [employer]] The system which generated this result [...] g/dL 31.6-35.1 L RDW-SD (test code = 06630-6) 46.2 fL 39.0-49.9 RDW-CV (test code = 788-0) 17.9 % 12.0-15.5 H PLT (test code = 777-3) 304 See_Comment [Automated [employer]] The system which generated this result transmitted reference range: 166 - 358 10*3/?L. The reference range was not used to interpret this result as normal/abnormal. MPV (test code = 62812-0) 11.0 fL 9.5-12.9 NRBC/100 WBC (test code = 0346511241) 0.0 See_Comment [Automated me ssage] The system which generated this result transmitted reference range: 0.0 - 10.0 /100 WBCs. The reference range was not used to interpret this result as normal/abnormal. NRBC x10^3 (test code = 3871930722) See_Comment [Automated messa ge] The system which generated this result transmitted reference range: 10*3/?L. The reference range was not used to interpret this result as normal/abnormal. GRAN MAT (NEUT) % (test code = 770-8) 68.6 % IMM GRAN % (test code = 8825096095) 0.70 % LYMPH % (test code = 736-9) 19.8 % MONO % (test code = 5905-5) 5.3 % EOS % (test code = 713-8) 5.1 % BASO % (test code = 706-2) 0.5 % GRAN MAT x10^3(ANC) (test code = 1458934799) 5.08 10*3/uL 1.88-7.09 IMM GRAN x10^3 (test code = 7209878055) 0.05 10*3/uL 0.00-0.06 LYMPH x10^3 (test code = 731-0) 1.47 10*3/uL 1.32-3.29 MONO x10^3 (test code = 742-7) 0.39 10*3/uL 0.33-0.92 EOS x10^3 (test code = 711-2) 0.38 10*3/uL 0.03-0.39 BASO x10^3 (test code = 704-7) 0.04 10*3/uL 0.01-0.07 Lab Interpretation (test code = 61820-2) Abnormal [facility] WITH [id number] 17:18:52* Test Item Value Reference Range Interpretation Comme nts WBC (test code = 6690-2) 7.41 See_Comment [Automated messa ge] The system which generated this result transmitted reference range: 4.30 - 11.10 10*3/?L. The reference range was not used to interpret this result as normal/abnormal. RBC (test code = 789-8) 4.20 See_Comment [Automated [employer]] The system which generated this result [...] g/dL 31.6-35.1 L RDW-SD (test code = 17368-7) 46.2 fL 39.0-49.9 RDW-CV (test code = 788-0) 17.9 % 12.0-15.5 H PLT (test code = 777-3) 304 See_Comment [Automated messa ge] The system which generated this result transmitted reference range: 166 - 358 10*3/?L. The reference range was not used to interpret this result as normal/abnormal. MPV (test code = 52233-4) 11.0 fL 9.5-12.9 NRBC/100 WBC (test code = 2329094316) 0.0 See_Comment [Automated [employer]] The system which generated this result transmitted reference range: 0.0 - 10.0 /100 WBCs. The reference range was not used to interpret this result as normal/abnormal. NRBC x10^3 (test code = 0853482195) See_Comment [Automated [employer]] The system which generated this result transmitted reference range: 10*3/?L. The reference range was not used to interpret this result as normal/abnormal. GRAN MAT (NEUT) % (test code = 770-8) 68.6 % IMM GRAN % (test code = 7128891568) 0.70 % LYMPH % (test code = 736-9) 19.8 % MONO % (test code = 5905-5) 5.3 % EOS % (test code = 713-8) 5.1 % BASO % (test code = 706-2) 0.5 % GRAN MAT x10^3(ANC) (test code = 5319134273) 5.08 10*3/uL 1.88-7.09 IMM GRAN x10^3 (test code = 5814494667) 0.05 10*3/uL 0.00-0.06 LYMPH x10^3 (test code = 731-0) 1.47 10*3/uL 1.32-3.29 MONO x10^3 (test code = 742-7) 0.39 10*3/uL 0.33-0.92 EOS x10^3 (test code = 711-2) 0.38 10*3/uL 0.03-0.39 BASO x10^3 (test code = 704-7) 0.04 10*3/uL 0.01-0.07 Lab Interpretation (test code = 08554-5) Abnormal [facility] WITH [id number] 17:18:52* Test Item Value Reference Range Interpretation Comme nts WBC (test code = 6690-2) 7.41 See_Comment [Automated [employer]] The system which generated this result transmitted reference range: 4.30 - 11.10 10*3/?L. The reference range was not used to interpret this result as normal/abnormal. RBC (test code = 789-8) 4.20 See_Comment [Automated [employer]] The system which generated this result [...] g/dL 31.6-35.1 L RDW-SD (test code = 91902-0) 46.2 fL 39.0-49.9 RDW-CV (test code = 788-0) 17.9 % 12.0-15.5 H PLT (test code = 777-3) 304 See_Comment [Automated messa ge] The system which generated this result transmitted reference range: 166 - 358 10*3/?L. The reference range was not used to interpret this result as normal/abnormal. MPV (test code = 18416-5) 11.0 fL 9.5-12.9 NRBC/100 WBC (test code = 6993744740) 0.0 See_Comment [Automated me ssage] The system which generated this result transmitted reference range: 0.0 - 10.0 /100 WBCs. The reference range was not used to interpret this result as normal/abnormal. NRBC x10^3 (test code = 8574259146) See_Comment [Automated messa ge] The system which generated this result transmitted reference range: 10*3/?L. The reference range was not used to interpret this result as normal/abnormal. GRAN MAT (NEUT) % (test code = 770-8) 68.6 % IMM GRAN % (test code = 1584888630) 0.70 % LYMPH % (test code = 736-9) 19.8 % MONO % (test code = 5905-5) 5.3 % EOS % (test code = 713-8) 5.1 % BASO % (test code = 706-2) 0.5 % GRAN MAT x10^3(ANC) (test code = 0954381413) 5.08 10*3/uL 1.88-7.09 IMM GRAN x10^3 (test code = 2337523641) 0.05 10*3/uL 0.00-0.06 LYMPH x10^3 (test code = 731-0) 1.47 10*3/uL 1.32-3.29 MONO x10^3 (test code = 742-7) 0.39 10*3/uL 0.33-0.92 EOS x10^3 (test code = 711-2) 0.38 10*3/uL 0.03-0.39 BASO x10^3 (test code = 704-7) 0.04 10*3/uL 0.01-0.07 Lab Interpretation (test code = 66665-2) Abnormal [facility] WITH [id number] 17:18:52* Test Item Value Reference Range Interpretation Comme nts WBC (test code = 6690-2) 7.41 See_Comment [Automated [employer]] The system which generated this result transmitted reference range: 4.30 - 11.10 10*3/?L. The reference range was not used to interpret this result as normal/abnormal. RBC (test code = 789-8) 4.20 See_Comment [Automated [employer]] The system which generated this result [...] g/dL 31.6-35.1 L RDW-SD (test code = 44710-7) 46.2 fL 39.0-49.9 RDW-CV (test code = 788-0) 17.9 % 12.0-15.5 H PLT (test code = 777-3) 304 See_Comment [Automated messa ge] The system which generated this result transmitted reference range: 166 - 358 10*3/?L. The reference range was not used to interpret this result as normal/abnormal. MPV (test code = 33282-6) 11.0 fL 9.5-12.9 NRBC/100 WBC (test code = 9833571367) 0.0 See_Comment [Automated [employer]] The system which generated this result transmitted reference range: 0.0 - 10.0 /100 WBCs. The reference range was not used to interpret this result as normal/abnormal. NRBC x10^3 (test code = 6155056579) See_Comment [Automated messa ge] The system which generated this result transmitted reference range: 10*3/?L. The reference range was not used to interpret this result as normal/abnormal. GRAN MAT (NEUT) % (test code = 770-8) 68.6 % IMM GRAN % (test code = 2473954621) 0.70 % LYMPH % (test code = 736-9) 19.8 % MONO % (test code = 5905-5) 5.3 % EOS % (test code = 713-8) 5.1 % BASO % (test code = 706-2) 0.5 % GRAN MAT x10^3(ANC) (test code = 6108403976) 5.08 10*3/uL 1.88-7.09 IMM GRAN x10^3 (test code = 8904178448) 0.05 10*3/uL 0.00-0.06 LYMPH x10^3 (test code = 731-0) 1.47 10*3/uL 1.32-3.29 MONO x10^3 (test code = 742-7) 0.39 10*3/uL 0.33-0.92 EOS x10^3 (test code = 711-2) 0.38 10*3/uL 0.03-0.39 BASO x10^3 (test code = 704-7) 0.04 10*3/uL 0.01-0.07 Lab Interpretation (test code = 41656-2) Abnormal [facility] WITH [id number] 17:18:52* Test Item Value Reference Range Interpretation Comme nts WBC (test code = 6690-2) 7.41 See_Comment [Automated [employer]] The system which generated this result transmitted reference range: 4.30 - 11.10 10*3/?L. The reference range was not used to interpret this result as normal/abnormal. RBC (test code = 789-8) 4.20 See_Comment [Automated [employer]] The system which generated this result [...] g/dL 31.6-35.1 L RDW-SD (test code = 71845-1) 46.2 fL 39.0-49.9 RDW-CV (test code = 788-0) 17.9 % 12.0-15.5 H PLT (test code = 777-3) 304 See_Comment [Automated messa ge] The system which generated this result transmitted reference range: 166 - 358 10*3/?L. The reference range was not used to interpret this result as normal/abnormal. MPV (test code = 49457-1) 11.0 fL 9.5-12.9 NRBC/100 WBC (test code = 9632804119) 0.0 See_Comment [Automated [employer]] The system which generated this result transmitted reference range: 0.0 - 10.0 /100 WBCs. The reference range was not used to interpret this result as normal/abnormal. NRBC x10^3 (test code = 0789299964) See_Comment [Automated messa ge] The system which generated this result transmitted reference range: 10*3/?L. The reference range was not used to interpret this result as normal/abnormal. GRAN MAT (NEUT) % (test code = 770-8) 68.6 % IMM GRAN % (test code = 4615993800) 0.70 % LYMPH % (test code = 736-9) 19.8 % MONO % (test code = 5905-5) 5.3 % EOS % (test code = 713-8) 5.1 % BASO % (test code = 706-2) 0.5 % GRAN MAT x10^3(ANC) (test code = 5956510658) 5.08 10*3/uL 1.88-7.09 IMM GRAN x10^3 (test code = 8826916859) 0.05 10*3/uL 0.00-0.06 LYMPH x10^3 (test code = 731-0) 1.47 10*3/uL 1.32-3.29 MONO x10^3 (test code = 742-7) 0.39 10*3/uL 0.33-0.92 EOS x10^3 (test code = 711-2) 0.38 10*3/uL 0.03-0.39 BASO x10^3 (test code = 704-7) 0.04 10*3/uL 0.01-0.07 Lab Interpretation (test code = 79451-6) Abnormal [facility] WITH [id number] 17:18:52* Test Item Value Reference Range Interpretation [...] g/dL 31.6-35.1 L RDW-SD (test code = 49927-3) 46.2 fL 39.0-49.9 RDW-CV (test code = 788-0) 17.9 % 12.0-15.5 H PLT (test code = 777-3) 304 See_Comment [Automated messa ge] The system which generated this result transmitted reference range: 166 - 358 10*3/?L. The reference range was not used to interpret this result as normal/abnormal. MPV (test code = 73375-1) 11.0 fL 9.5-12.9 NRBC/100 WBC (test code = 7817707819) 0.0 See_Comment [Automated [employer]] The system which generated this result transmitted reference range: 0.0 - 10.0 /100 WBCs. The reference range was not used to interpret this result as normal/abnormal. NRBC x10^3 (test code = 7339547816) See_Comment [Automated messa ge] The system which generated this result transmitted reference range: 10*3/?L. The reference range was not used to interpret this result as normal/abnormal. GRAN MAT (NEUT) % (test code = 770-8) 68.6 % IMM GRAN % (test code = 6668676415) 0.70 % LYMPH % (test code = 736-9) 19.8 % MONO % (test code = 5905-5) 5.3 % EOS % (test code = 713-8) 5.1 % BASO % (test code = 706-2) 0.5 % GRAN MAT x10^3(ANC) (test code = 6949577629) 5.08 10*3/uL 1.88-7.09 IMM GRAN x10^3 (test code = 2452736808) 0.05 10*3/uL 0.00-0.06 LYMPH x10^3 (test code = 731-0) 1.47 10*3/uL 1.32-3.29 MONO x10^3 (test code = 742-7) 0.39 10*3/uL 0.33-0.92 EOS x10^3 (test code = 711-2) 0.38 10*3/uL 0.03-0.39 BASO x10^3 (test code = 704-7) 0.04 10*3/uL 0.01-0.07 Lab Interpretation (test code = 73337-5) Abnormal [facility] WITH [id number] 17:18:52* Test Item Value Reference Range Interpretation [...] g/dL 31.6-35.1 L RDW-SD (test code = 46256-2) 46.2 fL 39.0-49.9 RDW-CV (test code = 788-0) 17.9 % 12.0-15.5 H PLT (test code = 777-3) 304 See_Comment [Automated [employer]] The system which generated this result transmitted reference range: 166 - 358 10*3/?L. The reference range was not used to interpret this result as normal/abnormal. MPV (test code = 82646-3) 11.0 fL 9.5-12.9 NRBC/100 WBC (test code = 0924709216) 0.0 See_Comment [Automated [employer]] The system which generated this result transmitted reference range: 0.0 - 10.0 /100 WBCs. The reference range was not used to interpret this result as normal/abnormal. NRBC x10^3 (test code = 7402654535) See_Comment [Automated [employer]] The system which generated this result transmitted reference range: 10*3/?L. The reference range was not used to interpret this result as normal/abnormal. GRAN MAT (NEUT) % (test code = 770-8) 68.6 % IMM GRAN % (test code = 7127846079) 0.70 % LYMPH % (test code = 736-9) 19.8 % MONO % (test code = 5905-5) 5.3 % EOS % (test code = 713-8) 5.1 % BASO % (test code = 706-2) 0.5 % GRAN MAT x10^3(ANC) (test code = 8857546886) 5.08 10*3/uL 1.88-7.09 IMM GRAN x10^3 (test code = 4476690319) 0.05 10*3/uL 0.00-0.06 LYMPH x10^3 (test code = 731-0) 1.47 10*3/uL 1.32-3.29 MONO x10^3 (test code = 742-7) 0.39 10*3/uL 0.33-0.92 EOS x10^3 (test code = 711-2) 0.38 10*3/uL 0.03-0.39 BASO x10^3 (test code = 704-7) 0.04 10*3/uL 0.01-0.07 Lab Interpretation (test code = 86331-1) Abnormal [facility] WITH [id number] 17:18:52* Test Item Value Reference Range Interpretation Comme nts WBC (test code = 6690-2) 7.41 See_Comment [Automated messa ge] The system which generated this result transmitted reference range: 4.30 - 11.10 10*3/?L. The reference range was not used to interpret this result as normal/abnormal. RBC (test code = 789-8) 4.20 See_Comment [Automated [employer]] The system which generated this result [...] g/dL 31.6-35.1 L RDW-SD (test code = 30982-4) 46.2 fL 39.0-49.9 RDW-CV (test code = 788-0) 17.9 % 12.0-15.5 H PLT (test code = 777-3) 304 See_Comment [Automated messa ge] The system which generated this result transmitted reference range: 166 - 358 10*3/?L. The reference range was not used to interpret this result as normal/abnormal. MPV (test code = 10377-8) 11.0 fL 9.5-12.9 NRBC/100 WBC (test code = 8307745691) 0.0 See_Comment [Automated [employer]] The system which generated this result transmitted reference range: 0.0 - 10.0 /100 WBCs. The reference range was not used to interpret this result as normal/abnormal. NRBC x10^3 (test code = 4912928486) See_Comment [Automated messa ge] The system which generated this result transmitted reference range: 10*3/?L. The reference range was not used to interpret this result as normal/abnormal. GRAN MAT (NEUT) % (test code = 770-8) 68.6 % IMM GRAN % (test code = 0381893468) 0.70 % LYMPH % (test code = 736-9) 19.8 % MONO % (test code = 5905-5) 5.3 % EOS % (test code = 713-8) 5.1 % BASO % (test code = 706-2) 0.5 % GRAN MAT x10^3(ANC) (test code = 8827780557) 5.08 10*3/uL 1.88-7.09 IMM GRAN x10^3 (test code = 0513488309) 0.05 10*3/uL 0.00-0.06 LYMPH x10^3 (test code = 731-0) 1.47 10*3/uL 1.32-3.29 MONO x10^3 (test code = 742-7) 0.39 10*3/uL 0.33-0.92 EOS x10^3 (test code = 711-2) 0.38 10*3/uL 0.03-0.39 BASO x10^3 (test code = 704-7) 0.04 10*3/uL 0.01-0.07 Lab Interpretation (test code = 28885-2) Abnormal [facility] WITH [id number] 17:18:52* Test Item Value Reference Range Interpretation [...] g/dL 31.6-35.1 L RDW-SD (test code = 43352-1) 46.2 fL 39.0-49.9 RDW-CV (test code = 788-0) 17.9 % 12.0-15.5 H PLT (test code = 777-3) 304 See_Comment [Automated messa ge] The system which generated this result transmitted reference range: 166 - 358 10*3/?L. The reference range was not used to interpret this result as normal/abnormal. MPV (test code = 62026-9) 11.0 fL 9.5-12.9 NRBC/100 WBC (test code = 2916277199) 0.0 See_Comment [Automated [employer]] The system which generated this result transmitted reference range: 0.0 - 10.0 /100 WBCs. The reference range was not used to interpret this result as normal/abnormal. NRBC x10^3 (test code = 0449082936) See_Comment [Automated messa ge] The system which generated this result transmitted reference range: 10*3/?L. The reference range was not used to interpret this result as normal/abnormal. GRAN MAT (NEUT) % (test code = 770-8) 68.6 % IMM GRAN % (test code = 6197599492) 0.70 % LYMPH % (test code = 736-9) 19.8 % MONO % (test code = 5905-5) 5.3 % EOS % (test code = 713-8) 5.1 % BASO % (test code = 706-2) 0.5 % GRAN MAT x10^3(ANC) (test code = 8713173170) 5.08 10*3/uL 1.88-7.09 IMM GRAN x10^3 (test code = 6270478310) 0.05 10*3/uL 0.00-0.06 LYMPH x10^3 (test code = 731-0) 1.47 10*3/uL 1.32-3.29 MONO x10^3 (test code = 742-7) 0.39 10*3/uL 0.33-0.92 EOS x10^3 (test code = 711-2) 0.38 10*3/uL 0.03-0.39 BASO x10^3 (test code = 704-7) 0.04 10*3/uL 0.01-0.07 Lab Interpretation (test code = 09671-6) Abnormal [facility] WITH [id number] 17:18:52* Test Item Value Reference Range Interpretation Comme nts WBC (test code = 6690-2) 7.41 See_Comment [Automated [employer]] The system which generated this result transmitted reference range: 4.30 - 11.10 10*3/?L. The reference range was not used to interpret this result as normal/abnormal. RBC (test code = 789-8) 4.20 See_Comment [Automated [employer]] The system which generated this result [...] g/dL 31.6-35.1 L RDW-SD (test code = 45693-8) 46.2 fL 39.0-49.9 RDW-CV (test code = 788-0) 17.9 % 12.0-15.5 H PLT (test code = 777-3) 304 See_Comment [Automated messa ge] The system which generated this result transmitted reference range: 166 - 358 10*3/?L. The reference range was not used to interpret this result as normal/abnormal. MPV (test code = 86745-3) 11.0 fL 9.5-12.9 NRBC/100 WBC (test code = 0953870201) 0.0 See_Comment [Automated [employer]] The system which generated this result transmitted reference range: 0.0 - 10.0 /100 WBCs. The reference range was not used to interpret this result as normal/abnormal. NRBC x10^3 (test code = 8230250191) See_Comment [Automated messa ge] The system which generated this result transmitted reference range: 10*3/?L. The reference range was not used to interpret this result as normal/abnormal. GRAN MAT (NEUT) % (test code = 770-8) 68.6 % IMM GRAN % (test code = 4702259895) 0.70 % LYMPH % (test code = 736-9) 19.8 % MONO % (test code = 5905-5) 5.3 % EOS % (test code = 713-8) 5.1 % BASO % (test code = 706-2) 0.5 % GRAN MAT x10^3(ANC) (test code = 8744773794) 5.08 10*3/uL 1.88-7.09 IMM GRAN x10^3 (test code = 2278299085) 0.05 10*3/uL 0.00-0.06 LYMPH x10^3 (test code = 731-0) 1.47 10*3/uL 1.32-3.29 MONO x10^3 (test code = 742-7) 0.39 10*3/uL 0.33-0.92 EOS x10^3 (test code = 711-2) 0.38 10*3/uL 0.03-0.39 BASO x10^3 (test code = 704-7) 0.04 10*3/uL 0.01-0.07 Lab Interpretation (test code = 33913-1) Abnormal [facility] WITH [id number] 17:18:52* Test Item Value Reference Range Interpretation Comme nts WBC (test code = 6690-2) 7.41 See_Comment [Automated [employer]] The system which generated this result transmitted reference range: 4.30 - 11.10 10*3/?L. The reference range was not used to interpret this result as normal/abnormal. RBC (test code = 789-8) 4.20 See_Comment [Automated [employer]] The system which generated this result [...] g/dL 31.6-35.1 L RDW-SD (test code = 81961-4) 46.2 fL 39.0-49.9 RDW-CV (test code = 788-0) 17.9 % 12.0-15.5 H PLT (test code = 777-3) 304 See_Comment [Automated [employer]] The system which generated this result transmitted reference range: 166 - 358 10*3/?L. The reference range was not used to interpret this result as normal/abnormal. MPV (test code = 20581-7) 11.0 fL 9.5-12.9 NRBC/100 WBC (test code = 5311821499) 0.0 See_Comment [Automated [employer]] The system which generated this result transmitted reference range: 0.0 - 10.0 /100 WBCs. The reference range was not used to interpret this result as normal/abnormal. NRBC x10^3 (test code = 5233374544) See_Comment [Automated messa ge] The system which generated this result transmitted reference range: 10*3/?L. The reference range was not used to interpret this result as normal/abnormal. GRAN MAT (NEUT) % (test code = 770-8) 68.6 % IMM GRAN % (test code = 5013919731) 0.70 % LYMPH % (test code = 736-9) 19.8 % MONO % (test code = 5905-5) 5.3 % EOS % (test code = 713-8) 5.1 % BASO % (test code = 706-2) 0.5 % GRAN MAT x10^3(ANC) (test code = 1066565869) 5.08 10*3/uL 1.88-7.09 IMM GRAN x10^3 (test code = 7429119878) 0.05 10*3/uL 0.00-0.06 LYMPH x10^3 (test code = 731-0) 1.47 10*3/uL 1.32-3.29 MONO x10^3 (test code = 742-7) 0.39 10*3/uL 0.33-0.92 EOS x10^3 (test code = 711-2) 0.38 10*3/uL 0.03-0.39 BASO x10^3 (test code = 704-7) 0.04 10*3/uL 0.01-0.07 Lab Interpretation (test code = 47392-1) Abnormal [facility] WITH [id number] 17:18:52* Test Item Value Reference Range Interpretation [...] g/dL 31.6-35.1 L RDW-SD (test code = 66914-4) 46.2 fL 39.0-49.9 RDW-CV (test code = 788-0) 17.9 % 12.0-15.5 H PLT (test code = 777-3) 304 See_Comment [Automated messa ge] The system which generated this result transmitted reference range: 166 - 358 10*3/?L. The reference range was not used to interpret this result as normal/abnormal. MPV (test code = 53137-9) 11.0 fL 9.5-12.9 NRBC/100 WBC (test code = 7582696827) 0.0 See_Comment [Automated [employer]] The system which generated this result transmitted reference range: 0.0 - 10.0 /100 WBCs. The reference range was not used to interpret this result as normal/abnormal. NRBC x10^3 (test code = 6743890781) See_Comment [Automated messa ge] The system which generated this result transmitted reference range: 10*3/?L. The reference range was not used to interpret this result as normal/abnormal. GRAN MAT (NEUT) % (test code = 770-8) 68.6 % IMM GRAN % (test code = 7045077435) 0.70 % LYMPH % (test code = 736-9) 19.8 % MONO % (test code = 5905-5) 5.3 % EOS % (test code = 713-8) 5.1 % BASO % (test code = 706-2) 0.5 % GRAN MAT x10^3(ANC) (test code = 1495029040) 5.08 10*3/uL 1.88-7.09 IMM GRAN x10^3 (test code = 5209151190) 0.05 10*3/uL 0.00-0.06 LYMPH x10^3 (test code = 731-0) 1.47 10*3/uL 1.32-3.29 MONO x10^3 (test code = 742-7) 0.39 10*3/uL 0.33-0.92 EOS x10^3 (test code = 711-2) 0.38 10*3/uL 0.03-0.39 BASO x10^3 (test code = 704-7) 0.04 10*3/uL 0.01-0.07 Lab Interpretation (test code = 93893-1) Abnormal [facility] WITH [id number] 17:18:52* Test Item Value Reference Range Interpretation [...] g/dL 31.6-35.1 L RDW-SD (test code = 73532-0) 46.2 fL 39.0-49.9 RDW-CV (test code = 788-0) 17.9 % 12.0-15.5 H PLT (test code = 777-3) 304 See_Comment [Automated messa ge] The system which generated this result transmitted reference range: 166 - 358 10*3/?L. The reference range was not used to interpret this result as normal/abnormal. MPV (test code = 60238-6) 11.0 fL 9.5-12.9 NRBC/100 WBC (test code = 0996141995) 0.0 See_Comment [Automated [employer]] The system which generated this result transmitted reference range: 0.0 - 10.0 /100 WBCs. The reference range was not used to interpret this result as normal/abnormal. NRBC x10^3 (test code = 9472279643) See_Comment [Automated [employer]] The system which generated this result transmitted reference range: 10*3/?L. The reference range was not used to interpret this result as normal/abnormal. GRAN MAT (NEUT) % (test code = 770-8) 68.6 % IMM GRAN % (test code = 5098495996) 0.70 % LYMPH % (test code = 736-9) 19.8 % MONO % (test code = 5905-5) 5.3 % EOS % (test code = 713-8) 5.1 % BASO % (test code = 706-2) 0.5 % GRAN MAT x10^3(ANC) (test code = 4011515157) 5.08 10*3/uL 1.88-7.09 IMM GRAN x10^3 (test code = 3670942306) 0.05 10*3/uL 0.00-0.06 LYMPH x10^3 (test code = 731-0) 1.47 10*3/uL 1.32-3.29 MONO x10^3 (test code = 742-7) 0.39 10*3/uL 0.33-0.92 EOS x10^3 (test code = 711-2) 0.38 10*3/uL 0.03-0.39 BASO x10^3 (test code = 704-7) 0.04 10*3/uL 0.01-0.07 Lab Interpretation (test code = 55835-7) Abnormal [facility] WITH [id number] 17:18:52* Test Item Value Reference Range Interpretation [...] g/dL 31.6-35.1 L RDW-SD (test code = 23492-2) 46.2 fL 39.0-49.9 RDW-CV (test code = 788-0) 17.9 % 12.0-15.5 H PLT (test code = 777-3) 304 See_Comment [Automated messa ge] The system which generated this result transmitted reference range: 166 - 358 10*3/?L. The reference range was not used to interpret this result as normal/abnormal. MPV (test code = 42772-9) 11.0 fL 9.5-12.9 NRBC/100 WBC (test code = 2001489713) 0.0 See_Comment [Automated [employer]] The system which generated this result transmitted reference range: 0.0 - 10.0 /100 WBCs. The reference range was not used to interpret this result as normal/abnormal. NRBC x10^3 (test code = 9990476813) See_Comment [Automated [employer]] The system which generated this result transmitted reference range: 10*3/?L. The reference range was not used to interpret this result as normal/abnormal. GRAN MAT (NEUT) % (test code = 770-8) 68.6 % IMM GRAN % (test code = 4740129021) 0.70 % LYMPH % (test code = 736-9) 19.8 % MONO % (test code = 5905-5) 5.3 % EOS % (test code = 713-8) 5.1 % BASO % (test code = 706-2) 0.5 % GRAN MAT x10^3(ANC) (test code = 6509719382) 5.08 10*3/uL 1.88-7.09 IMM GRAN x10^3 (test code = 4659173287) 0.05 10*3/uL 0.00-0.06 LYMPH x10^3 (test code = 731-0) 1.47 10*3/uL 1.32-3.29 MONO x10^3 (test code = 742-7) 0.39 10*3/uL 0.33-0.92 EOS x10^3 (test code = 711-2) 0.38 10*3/uL 0.03-0.39 BASO x10^3 (test code = 704-7) 0.04 10*3/uL 0.01-0.07 Lab Interpretation (test code = 67342-9) Abnormal [facility] WITH [id number] 17:18:52* Test Item Value Reference Range Interpretation Comme nts WBC (test code = 6690-2) 7.41 See_Comment [Automated [employer]] The system which generated this result transmitted reference range: 4.30 - 11.10 10*3/?L. The reference range was not used to interpret this result as normal/abnormal. RBC (test code = 789-8) 4.20 See_Comment [Automated [employer]] The system which generated this result transmitted [...] g/dL 31.6-35.1 L RDW-SD (test code = 82589-4) 46.2 fL 39.0-49.9 RDW-CV (test code = 788-0) 17.9 % 12.0-15.5 H PLT (test code = 777-3) 304 See_Comment [Automated messa ge] The system which generated this result transmitted reference range: 166 - 358 10*3/?L. The reference range was not used to interpret this result as normal/abnormal. MPV (test code = 20843-6) 11.0 fL 9.5-12.9 NRBC/100 WBC (test code = 4935000105) 0.0 See_Comment [Automated me ssage] The system which generated this result transmitted reference range: 0.0 - 10.0 /100 WBCs. The reference range was not used to interpret this result as normal/abnormal. NRBC x10^3 (test code = 8343855103) See_Comment [Automated messa ge] The system which generated this result transmitted reference range: 10*3/?L. The reference range was not used to interpret this result as normal/abnormal. GRAN MAT (NEUT) % (test code = 770-8) 68.6 % IMM GRAN % (test code = 5607591115) 0.70 % LYMPH % (test code = 736-9) 19.8 % MONO % (test code = 5905-5) 5.3 % EOS % (test code = 713-8) 5.1 % BASO % (test code = 706-2) 0.5 % GRAN MAT x10^3(ANC) (test code = 5676498591) 5.08 10*3/uL 1.88-7.09 IMM GRAN x10^3 (test code = 0308970457) 0.05 10*3/uL 0.00-0.06 LYMPH x10^3 (test code = 731-0) 1.47 10*3/uL 1.32-3.29 MONO x10^3 (test code = 742-7) 0.39 10*3/uL 0.33-0.92 EOS x10^3 (test code = 711-2) 0.38 10*3/uL 0.03-0.39 BASO x10^3 (test code = 704-7) 0.04 10*3/uL 0.01-0.07 Lab Interpretation (test code = 30121-7) Abnormal [facility] [id number] 16:24:00* Test Item Value Reference Range Interpretation Comme nts POCT PREG (test code = 1605) Negative On board controls acceptable with C Line (test code = 3574) Yes POCT PREG LOT # (test code = 3575) [id number] POCT PREG TEST DATE ( test code = 3576) 04-11-2024 Lab Interpretation (test cod e = 46385-6) Normal [facility] [id number] 16:24:00* Test Item Value Reference Range Interpretation Comme nts POCT PREG (test code = 1605) Negative On board controls acceptable with C Line (test code = 3574) Yes POCT PREG LOT # (test code = 3575) [id number] POCT PREG TEST DATE ( test code = 3576) 04-11-2024 Lab Interpretation (test cod e = 48463-2) Normal [facility] [id number] 16:24:00* Test Item Value Reference Range Interpretation Comme nts POCT PREG (test code = 1605) Negative On board controls acceptable with C Line (test code = 3574) Yes POCT PREG LOT # (test code = 3575) 122549 POCT PREG TEST DATE ( test code = 3576) 04-11-2024 Lab Interpretation (test cod e = 75124-9) Normal [facility] [id number] 16:24:00* Test Item Value Reference Range Interpretation Comme nts POCT PREG (test code = 1605) Negative On board controls acceptable with C Line (test code = 3574) Yes POCT PREG LOT # (test code = 3575) [id number] POCT PREG TEST DATE ( test code = 3576) 04-11-2024 Lab Interpretation (test cod e = 71844-3) Normal [facility] [id number] 16:24:00* Test Item Value Reference Range Interpretation Comme nts POCT PREG (test code = 1605) Negative On board controls acceptable with C Line (test code = 3574) Yes POCT PREG LOT # (test code = 3575) 808030 POCT PREG TEST DATE ( test code = 3576) 04-11-2024 Lab Interpretation (test cod e = 02534-3) [facility] [id number] 16:24:00* Test Item Value Reference Range Interpretation Comme nts POCT PREG (test code = 1605) Negative On board controls acceptable with C Line (test code = 3574) Yes POCT PREG LOT # (test code = 3575) [id number] POCT PREG TEST DATE ( test code = 3576) 04-11-2024 Lab Interpretation (test cod e = 36286-9) [facility] [id number] 16:24:00* Test Item Value Reference Range Interpretation Comme nts POCT PREG (test code = 1605) Negative On board controls acceptable with C Line (test code = 3574) Yes POCT PREG LOT # (test code = 3575) 856411 POCT PREG TEST DATE ( test code = 3576) 04-11-2024 Lab Interpretation (test cod e = 15974-5) [facility] [id number] 16:24:00* Test Item Value Reference Range Interpretation Comme nts POCT PREG (test code = 1605) Negative On board controls acceptable with C Line (test code = 3574) Yes POCT PREG LOT # (test code = 3575) 272656 POCT PREG TEST DATE ( test code = 3576) 04-11-2024 Lab Interpretation (test cod e = 55295-9) [facility] [id number] 16:24:00* Test Item Value Reference Range Interpretation Comme nts POCT PREG (test code = 1605) Negative On board controls acceptable with C Line (test code = 3574) Yes POCT PREG LOT # (test code = 3575) 563733 POCT PREG TEST DATE ( test code = 3576) 04-11-2024 Lab Interpretation (test cod e = 91882-8) [facility] [id number] 16:24:00* Test Item Value Reference Range Interpretation Comme nts POCT PREG (test code = 1605) Negative On board controls acceptable with C Line (test code = 3574) Yes POCT PREG LOT # (test code = 3575) 371934 POCT PREG TEST DATE ( test code = 3576) 04-11-2024 Lab Interpretation (test cod e = 69834-1) [facility] [id number] 16:24:00* Test Item Value Reference Range Interpretation Comme nts POCT PREG (test code = 1605) Negative On board controls acceptable with C Line (test code = 3574) Yes POCT PREG LOT # (test code = 3575) 383409 POCT PREG TEST DATE ( test code = 3576) 04-11-2024 Lab Interpretation (test cod e = 19460-7) [facility] [id number] 16:24:00* Test Item Value Reference Range Interpretation Comme nts POCT PREG (test code = 1605) Negative On board controls acceptable with C Line (test code = 3574) Yes POCT PREG LOT # (test code = 3575) 369971 POCT PREG TEST DATE ( test code = 3576) 04-11-2024 Lab Interpretation (test cod e = 48097-4) [facility] [id number] 16:24:00* Test Item Value Reference Range Interpretation Comme nts POCT PREG (test code = 1605) Negative On board controls acceptable with C Line (test code = 3574) Yes POCT PREG LOT # (test code = 3575) 540713 POCT PREG TEST DATE ( test code = 3576) 04-11-2024 Lab Interpretation (test cod e = 45495-8) [facility] [id number] 16:24:00* Test Item Value Reference Range Interpretation Comme nts POCT PREG (test code = 1605) Negative On board controls acceptable with C Line (test code = 3574) Yes POCT PREG LOT # (test code = 3575) 434303 POCT PREG TEST DATE ( test code = 3576) 04-11-2024 Lab Interpretation (test cod e = 73850-6) [facility] [id number] 16:24:00* Test Item Value Reference Range Interpretation Comme nts POCT PREG (test code = 1605) Negative On board controls acceptable with C Line (test code = 3574) Yes POCT PREG LOT # (test code = 3575) 597739 POCT PREG TEST DATE ( test code = 3576) 04-11-2024 Lab Interpretation (test cod e = 75445-2) Normal [facility] [id number] 16:24:00* Test Item Value Reference Range Interpretation Comme nts POCT PREG (test code = 1605) Negative On board controls acceptable with C Line (test code = 3574) Yes POCT PREG LOT # (test code = 3575) 563439 POCT PREG TEST DATE ( test code = 3576) 04-11-2024 Lab Interpretation (test cod e = 17749-2) [facility] [id number] 16:24:00* Test Item Value Reference Range Interpretation Comme nts POCT PREG (test code = 1605) Negative On board controls acceptable with C Line (test code = 3574) Yes POCT PREG LOT # (test code = 3575) 404979 POCT PREG TEST DATE ( test code = 3576) 04-11-2024 Lab Interpretation (test cod e = 32128-0) [facility] [id number] 16:24:00* Test Item Value Reference Range Interpretation Comme nts POCT PREG (test code = 1605) Negative On board controls acceptable with C Line (test code = 3574) Yes POCT PREG LOT # (test code = 3575) 853491 POCT PREG TEST DATE ( test code = 357) 04-11-2024 Lab Interpretation (test cod e = 60224-8) Normal [facility] ONLY CELIAC SCREEN [id number] 19:09:14 * Test Item Value Reference Range Interpretation Comme nts Tissue Transglutaminase (tTG) Ab, IgA Interpretation (test code = 06757-8) Negative Negative Deamidated Gliadin Peptide (DGP) Ab, IgA Interpretation (test code = 53951-6) Negative Negative Tissue Transglutaminase (tTG) Ab, IgA (test code = 6821574697) <=7.0 Deamidated Gliadin Peptide (DGP) Ab, IgA (test code = 3847129212) 0.4 U/mL <=7.0 ZAINAB (test code = ZAINAB) < 7 U/mL ? Negative7 - 10 U/mL ?Equivocal> 10 U/mL ?Positive In case of equivocal results, we recommend to retest the patient after 8 -12 weeks. Lab Interpretation (test code = 57091-7) Normal [facility] ONLY CELIAC SCREEN [id number] 19:09:14 * Test Item Value Reference Range Interpretation Comme nts Tissue Transglutaminase (tTG) Ab, IgA Interpretation (test code = 94095-0) Negative Negative Deamidated Gliadin Peptide (DGP) Ab, IgA Interpretation (test code = 73922-6) Negative Negative Tissue Transglutaminase (tTG) Ab, IgA (test code = 9477348890) <=7.0 Deamidated Gliadin Peptide (DGP) Ab, IgA (test code = 6791324260) 0.4 U/mL <=7.0 ZAINAB (test code = ZAINAB) < 7 U/mL ? Negative7 - 10 U/mL ?Equivocal> 10 U/mL ?Positive In case of equivocal results, we recommend to retest the patient after 8 -12 weeks. Lab Interpretation (test code = 52612-0) Normal [facility] ONLY CELIAC SCREEN [id number] 19:09:14 * Test Item Value Reference Range Interpretation Comme nts Tissue Transglutaminase (tTG) Ab, IgA Interpretation (test code = 25705-3) Negative Negative Deamidated Gliadin Peptide (DGP) Ab, IgA Interpretation (test code = 38451-4) Negative Negative Tissue Transglutaminase (tTG) Ab, IgA (test code = 6933461502) <=7.0 Deamidated Gliadin Peptide (DGP) Ab, IgA (test code = 1167789105) 0.4 U/mL <=7.0 ZAINAB (test code = ZAINAB) < 7 U/mL ? Negative7 - 10 U/mL ?Equivocal> 10 U/mL ?Positive In case of equivocal results, we recommend to retest the patient after 8 -12 weeks. Lab Interpretation (test code = 76632-8) Normal [facility] ONLY CELIAC SCREEN [id number] 19:09:14 * Test Item Value Reference Range Interpretation Comme nts Tissue Transglutaminase (tTG) Ab, IgA Interpretation (test code = 66932-2) Negative Negative Deamidated Gliadin Peptide (DGP) Ab, IgA Interpretation (test code = 13595-0) Negative Negative Tissue Transglutaminase (tTG) Ab, IgA (test code = 3484852937) <=7.0 Deamidated Gliadin Peptide (DGP) Ab, IgA (test code = 6597099335) 0.4 U/mL <=7.0 ZAINAB (test code = ZAINAB) < 7 U/mL ? Negative7 - 10 U/mL ?Equivocal> 10 U/mL ?Positive In case of equivocal results, we recommend to retest the patient after 8 -12 weeks. Lab Interpretation (test code = 78153-6) Normal [facility] ONLY CELIAC SCREEN [id number] 19:09:14 * Test Item Value Reference Range Interpretation Comme nts Tissue Transglutaminase (tTG) Ab, IgA Interpretation (test code = 36814-6) Negative Negative Deamidated Gliadin Peptide (DGP) Ab, IgA Interpretation (test code = 88078-2) Negative Negative Tissue Transglutaminase (tTG) Ab, IgA (test code = 2284831965) <=7.0 Deamidated Gliadin Peptide (DGP) Ab, IgA (test code = 9887156936) 0.4 U/mL <=7.0 ZAINAB (test code = ZAINAB) < 7 U/mL ? Negative7 - 10 U/mL ?Equivocal> 10 U/mL ?Positive In case of equivocal results, we recommend to retest the patient after 8 -12 weeks. Lab Interpretation (test code = 41528-9) Normal [facility] ONLY CELIAC SCREEN [id number] 19:09:14 * Test Item Value Reference Range Interpretation Comme nts Tissue Transglutaminase (tTG) Ab, IgA Interpretation (test code = 39530-7) Negative Negative Deamidated Gliadin Peptide (DGP) Ab, IgA Interpretation (test code = 08689-1) Negative Negative Tissue Transglutaminase (tTG) Ab, IgA (test code = 0047982545) <=7.0 Deamidated Gliadin Peptide (DGP) Ab, IgA (test code = 4718597552) 0.4 U/mL <=7.0 ZAINAB (test code = ZAINAB) < 7 U/mL ? Negative7 - 10 U/mL ?Equivocal> 10 U/mL ?Positive In case of equivocal results, we recommend to retest the patient after 8 -12 weeks. Lab Interpretation (test code = 34385-6) Normal [facility] ONLY CELIAC SCREEN [id number] 19:09:14 * Test Item Value Reference Range Interpretation Comme nts Tissue Transglutaminase (tTG) Ab, IgA Interpretation (test code = 37444-9) Negative Negative Deamidated Gliadin Peptide (DGP) Ab, IgA Interpretation (test code = 30090-8) Negative Negative Tissue Transglutaminase (tTG) Ab, IgA (test code = 4114286526) <=7.0 Deamidated Gliadin Peptide (DGP) Ab, IgA (test code = 8454889587) 0.4 U/mL <=7.0 ZAINAB (test code = ZAINAB) < 7 U/mL ? Negative7 - 10 U/mL ?Equivocal> 10 U/mL ?Positive In case of equivocal results, we recommend to retest the patient after 8 -12 weeks. Lab Interpretation (test code = 00110-5) Normal [facility] ONLY CELIAC SCREEN [id number] 19:09:14 * Test Item Value Reference Range Interpretation Comme nts Tissue Transglutaminase (tTG) Ab, IgA Interpretation (test code = 68159-6) Negative Negative Deamidated Gliadin Peptide (DGP) Ab, IgA Interpretation (test code = 32272-8) Negative Negative Tissue Transglutaminase (tTG) Ab, IgA (test code = [id number]) <=7.0 Deamidated Gliadin Peptide (DGP) Ab, IgA (test code = 7339319548) 0.4 U/mL <=7.0 ZAINAB (test code = ZAINAB) < 7 U/mL ? Negative7 - 10 U/mL ?Equivocal> 10 U/mL ?Positive In case of equivocal results, we recommend to retest the patient after 8 -12 weeks. Lab Interpretation (test code = 84191-1) Normal [facility] ONLY CELIAC SCREEN [id number] 19:09:14 * Test Item Value Reference Range Interpretation Comme nts Tissue Transglutaminase (tTG) Ab, IgA Interpretation (test code = 53076-7) Negative Negative Deamidated Gliadin Peptide (DGP) Ab, IgA Interpretation (test code = 62999-8) Negative Negative Tissue Transglutaminase (tTG) Ab, IgA (test code = 0248600820) <=7.0 Deamidated Gliadin Peptide (DGP) Ab, IgA (test code = 6023805536) 0.4 U/mL <=7.0 ZAINAB (test code = ZAINAB) < 7 U/mL ? Negative7 - 10 U/mL ?Equivocal> 10 U/mL ?Positive In case of equivocal results, we recommend to retest the patient after 8 -12 weeks. Lab Interpretation (test code = 36055-7) Normal [facility] ONLY CELIAC SCREEN [id number] 19:09:14 * Test Item Value Reference Range Interpretation Comme nts Tissue Transglutaminase (tTG) Ab, IgA Interpretation (test code = 78671-5) Negative Negative Deamidated Gliadin Peptide (DGP) Ab, IgA Interpretation (test code = 44694-1) Negative Negative Tissue Transglutaminase (tTG) Ab, IgA (test code = 8320367394) <=7.0 Deamidated Gliadin Peptide (DGP) Ab, IgA (test code = 1370961959) 0.4 U/mL <=7.0 ZAINAB (test code = ZAINAB) < 7 U/mL ? Negative7 - 10 U/mL ?Equivocal> 10 U/mL ?Positive In case of equivocal results, we recommend to retest the patient after 8 -12 weeks. Lab Interpretation (test code = 96241-7) Normal [facility] ONLY CELIAC SCREEN [id number] 19:09:14 * Test Item Value Reference Range Interpretation Comme nts Tissue Transglutaminase (tTG) Ab, IgA Interpretation (test code = 75655-7) Negative Negative Deamidated Gliadin Peptide (DGP) Ab, IgA Interpretation (test code = 33056-0) Negative Negative Tissue Transglutaminase (tTG) Ab, IgA (test code = 6321528384) <=7.0 Deamidated Gliadin Peptide (DGP) Ab, IgA (test code = 6805484630) 0.4 U/mL <=7.0 ZAINAB (test code = ZAINAB) < 7 U/mL ? Negative7 - 10 U/mL ?Equivocal> 10 U/mL ?Positive In case of equivocal results, we recommend to retest the patient after 8 -12 weeks. Lab Interpretation (test code = 20683-9) Normal [facility] ONLY CELIAC SCREEN [id number] 19:09:14 * Test Item Value Reference Range Interpretation Comme nts Tissue Transglutaminase (tTG) Ab, IgA Interpretation (test code = 03926-7) Negative Negative Deamidated Gliadin Peptide (DGP) Ab, IgA Interpretation (test code = 63797-3) Negative Negative Tissue Transglutaminase (tTG) Ab, IgA (test code = 6801309989) <=7.0 Deamidated Gliadin Peptide (DGP) Ab, IgA (test code = 6161607331) 0.4 U/mL <=7.0 ZAINAB (test code = ZAINAB) < 7 U/mL ? Negative7 - 10 U/mL ?Equivocal> 10 U/mL ?Positive In case of equivocal results, we recommend to retest the patient after 8 -12 weeks. Lab Interpretation (test code = 28332-1) [facility] [id number] 20:24:44* Test Item Value Reference Range Interpretation Comme nts Total IgA (test code = 8735620753) 78.3 U/mL 70-312 Lab Interpretation (test cod e = 47191-1) Normal [facility] [id number] 20:24:44* Test Item Value Reference Range Interpretation Comme nts Total IgA (test code = 3387414178) 78.3 U/mL 70-312 Lab Interpretation (test cod e = 71000-3) Normal [facility] [id number] 20:24:44* Test Item Value Reference Range Interpretation Comme nts Total IgA (test code = 9515896666) 78.3 U/mL 70-312 Lab Interpretation (test cod e = 32210-6) Normal [facility]2023-09-07 20:24:44* Test Item Value Reference Range Interpretation Comme nts Total IgA (test code = 5231647792) 78.3 U/mL 70-312 Lab Interpretation (test cod e = 22144-4) Normal [facility]2023-09-07 20:24:44* Test Item Value Reference Range Interpretation Comme nts Total IgA (test code = 7089327803) 78.3 U/mL 70-312 Lab Interpretation (test cod e = 87906-2) Normal [facility] [id number] 20:24:44* Test Item Value Reference Range Interpretation Comme nts Total IgA (test code = 1488586056) 78.3 U/mL 70-312 Lab Interpretation (test cod e = 60065-9) Normal [facility] [id number] 20:24:44* Test Item Value Reference Range Interpretation Comme nts Total IgA (test code = 8916715067) 78.3 U/mL 70-312 Lab Interpretation (test cod e = 69118-3) Normal [facility] [id number] 20:24:44* Test Item Value Reference Range Interpretation Comme nts Total IgA (test code = 6192712111) 78.3 U/mL 70-312 Lab Interpretation (test cod e = 64673-9) Normal [facility] [id number] 20:24:44* Test Item Value Reference Range Interpretation Comme nts Total IgA (test code = 0873892458) 78.3 U/mL 70-312 Lab Interpretation (test cod e = 98233-3) Normal [facility] [id number] 20:24:44* Test Item Value Reference Range Interpretation Comme nts Total IgA (test code = 1774577115) 78.3 U/mL 70-312 Lab Interpretation (test cod e = 27250-7) Normal [facility] [id number] 20:24:44* Test Item Value Reference Range Interpretation Comme nts Total IgA (test code = 4077424789) 78.3 U/mL 70-312 Lab Interpretation (test cod e = 96513-3) Normal [facility] [id number] 20:24:44* Test Item Value Reference Range Interpretation Comme nts Total IgA (test code = 8268581819) 78.3 U/mL 70-312 Lab Interpretation (test cod e = 51879-1) Normal [facility] [id number] 17:30:19* Test Item Value Reference Range Interpretation Comme nts FERRITIN (test code = 4183699562) 4.8 ng/mL 6.0-137.0 L ZAINAB (test code = ZAINAB) Biotin has been reported to cause a negative bias, interpret results relative to patient's use of biotin. Lab Interpretation (test code = 51758-3) Abnormal [facility] [id number] 17:30:19* Test Item Value Reference Range Interpretation Comme nts FERRITIN (test code = 2587290589) 4.8 ng/mL 6.0-137.0 L ZAINAB (test code = ZAINAB) Biotin has been reported to cause a negative bias, interpret results relative to patient's use of biotin. Lab Interpretation (test code = 34334-0) Abnormal [facility] [id number] 17:30:19* Test Item Value Reference Range Interpretation Comme nts FERRITIN (test code = 0171864841) 4.8 ng/mL 6.0-137.0 L ZAINAB (test code = ZAINAB) Biotin has been reported to cause a negative bias, interpret results relative to patient's use of biotin. Lab Interpretation (test code = 76921-1) Abnormal [facility] [id number] 17:30:19* Test Item Value Reference Range Interpretation Comme nts FERRITIN (test code = 5830443760) 4.8 ng/mL 6.0-137.0 L ZAINAB (test code = ZAINAB) Biotin has been reported to cause a negative bias, interpret results relative to patient's use of biotin. Lab Interpretation (test code = 35538-4) Abnormal [facility] [id number] 17:30:19* Test Item Value Reference Range Interpretation Comme nts FERRITIN (test code = 4819487632) 4.8 ng/mL 6.0-137.0 L ZAINAB (test code = ZAINAB) Biotin has been reported to cause a negative bias, interpret results relative to patient's use of biotin. Lab Interpretation (test code = 38511-1) Abnormal [facility] [id number] 17:30:19* Test Item Value Reference Range Interpretation Comme nts FERRITIN (test code = 2892046337) 4.8 ng/mL 6.0-137.0 L ZAINAB (test code = ZAINAB) Biotin has been reported to cause a negative bias, interpret results relative to patient's use of biotin. Lab Interpretation (test code = 70094-1) Abnormal [facility] [id number] 17:30:19* Test Item Value Reference Range Interpretation Comme nts FERRITIN (test code = 0106479526) 4.8 ng/mL 6.0-137.0 L ZAINAB (test code = ZAINAB) Biotin has been reported to cause a negative bias, interpret results relative to patient's use of biotin. Lab Interpretation (test code = 21876-7) Abnormal [facility] [id number] 17:30:19* Test Item Value Reference Range Interpretation Comme nts FERRITIN (test code = 8771180598) 4.8 ng/mL 6.0-137.0 L ZAINAB (test code = ZAINAB) Biotin has been reported to cause a negative bias, interpret results relative to patient's use of biotin. Lab Interpretation (test code = 39996-5) Abnormal [facility] [id number] 17:30:19* Test Item Value Reference Range Interpretation Comme nts FERRITIN (test code = 9584151312) 4.8 ng/mL 6.0-137.0 L ZAINAB (test code = ZAINAB) Biotin has been reported to cause a negative bias, interpret results relative to patient's use of biotin. Lab Interpretation (test code = 17050-0) [facility]normal [facility] [id number] 17:30:19* Test Item Value Reference Range Interpretation Comme nts FERRITIN (test code = 2666221630) 4.8 ng/mL 6.0-137.0 L ZAINAB (test code = ZAINAB) Biotin has been reported to cause a negative bias, interpret results relative to patient's use of biotin. Lab Interpretation (test code = 37764-0) Abnormal [facility] [id number] 17:30:19* Test Item Value Reference Range Interpretation Comme nts FERRITIN (test code = 2087326569) 4.8 ng/mL 6.0-137.0 L ZAINAB (test code = ZAINAB) Biotin has been reported to cause a negative bias, interpret results relative to patient's use of biotin. Lab Interpretation (test code = 45778-2) Abnormal [facility] [id number] 17:30:19* Test Item Value Reference Range Interpretation Comme nts FERRITIN (test code = 8010074713) 4.8 ng/mL 6.0-137.0 L ZAINAB (test code = ZAINAB) Biotin has been reported to cause a negative bias, interpret results relative to patient's use of biotin. Lab Interpretation (test code = 60222-9) Abnormal [facility] [id number] 17:03:34* Test Item Value Reference Range Interpretation Comme nts IRON (test code = 9551445873) 34 ug/dL 50-160 L TIBC (test code = 6371291447) 515 ug/dL 250-410 H % FE SAT (test code = 2818900450) 7 % 20-50 L Lab Interpretation (test cod e = 39181-9) Abnormal [facility] [id number] 17:03:34* Test Item Value Reference Range Interpretation Comme nts IRON (test code = 9292902694) 34 ug/dL 50-160 L TIBC (test code = 9286161642) 515 ug/dL 250-410 H % FE SAT (test code = 8616425739) 7 % 20-50 L Lab Interpretation (test cod e = 87148-9) Abnormal [facility] [id number] 17:03:34* Test Item Value Reference Range Interpretation Comme nts IRON (test code = 2646767132) 34 ug/dL 50-160 L TIBC (test code = 3305653925) 515 ug/dL 250-410 H % FE SAT (test code = 0999627908) 7 % 20-50 L Lab Interpretation (test cod e = 53052-7) Abnormal [facility] [id number] 17:03:34* Test Item Value Reference Range Interpretation Comme nts IRON (test code = 8154750841) 34 ug/dL 50-160 L TIBC (test code = 7536686778) 515 ug/dL 250-410 H % FE SAT (test code = 8531603890) 7 % 20-50 L Lab Interpretation (test cod e = 77865-2) Abnormal [facility]2023-09-07 17:03:34* Test Item Value Reference Range Interpretation Comme nts IRON (test code = 4359324009) 34 ug/dL 50-160 L TIBC (test code = 9309007426) 515 ug/dL 250-410 H % FE SAT (test code = 4505852539) 7 % 20-50 L Lab Interpretation (test cod e = 24182-0) Abnormal [facility]2023-09-07 17:03:34* Test Item Value Reference Range Interpretation Comme nts IRON (test code = 7248211628) 34 ug/dL 50-160 L TIBC (test code = 7115799166) 515 ug/dL 250-410 H % FE SAT (test code = 1006221271) 7 % 20-50 L Lab Interpretation (test cod e = 67361-2) Abnormal [facility]2023-09-07 17:03:34* Test Item Value Reference Range Interpretation Comme nts IRON (test code = 4494709909) 34 ug/dL 50-160 L TIBC (test code = 5056953350) 515 ug/dL 250-410 H % FE SAT (test code = 0337430350) 7 % 20-50 L Lab Interpretation (test cod e = 73908-4) Abnormal [place] [id number] 17:03:34* Test Item Value Reference Range Interpretation Comme nts IRON (test code = 4870834425) 34 ug/dL 50-160 L TIBC (test code = 4572321094) 515 ug/dL 250-410 H % FE SAT (test code = 7612750701) 7 % 20-50 L Lab Interpretation (test cod e = 29901-0) Abnormal [facility]2023-09-07 17:03:34* Test Item Value Reference Range Interpretation Comme nts IRON (test code = 8807916682) 34 ug/dL 50-160 L TIBC (test code = 7389526298) 515 ug/dL 250-410 H % FE SAT (test code = 8810342276) 7 % 20-50 L Lab Interpretation (test cod e = 99819-1) Abnormal [facility]2023-09-07 17:03:34* Test Item Value Reference Range Interpretation Comme nts IRON (test code = 6288554232) 34 ug/dL 50-160 L TIBC (test code = 9513119174) 515 ug/dL 250-410 H % FE SAT (test code = 6369399650) 7 % 20-50 L Lab Interpretation (test cod e = 18160-3) Abnormal [facility]2023-09-07 17:03:34* Test Item Value Reference Range Interpretation Comme nts IRON (test code = 4382482919) 34 ug/dL 50-160 L TIBC (test code = 6449148396) 515 ug/dL 250-410 H % FE SAT (test code = 3189191060) 7 % 20-50 L Lab Interpretation (test cod e = 68646-8) Abnormal [facility]2023-09-07 17:03:34* Test Item Value Reference Range Interpretation Comme nts IRON (test code = 8063134408) 34 ug/dL 50-160 L TIBC (test code = 8330130262) 515 ug/dL 250-410 H % FE SAT (test code = 6114989592) 7 % 20-50 L Lab Interpretation (test cod e = 73642-1) Abnormal [facility]2023-08-24 19:48:06* Test Item Value Reference Range Interpretation Comme nts [place] (test code = 3940867540) 0.5 mmol/L 0.6-1.2 L ZAINAB (test code = ZAINAB) Toxic Range: ? Greater than 1.2 mmol/L Lab Interpretation (test code = 28537-5) Abnormal [facility]2023-08-24 19:48:06* Test Item Value Reference Range Interpretation Comme nts [place] (test code = 4046427833) 0.5 mmol/L 0.6-1.2 L ZAINAB (test code = ZAINAB) Toxic Range: ? Greater than 1.2 mmol/L Lab Interpretation (test code = 50279-5) Abnormal [facility]2023-08-24 19:48:06* Test Item Value Reference Range Interpretation Comme nts [place] (test code = 9417191721) 0.5 mmol/L 0.6-1.2 L ZAINAB (test code = ZAINAB) Toxic Range: ? Greater than 1.2 mmol/L Lab Interpretation (test code = 90937-8) Abnormal [facility]2023-08-24 19:48:06* Test Item Value Reference Range Interpretation Comme nts [place] (test code = 4277826455) 0.5 mmol/L 0.6-1.2 L ZAINAB (test code = ZAINAB) Toxic Range: ? Greater than 1.2 mmol/L Lab Interpretation (test code = 08880-4) Abnormal [facility]2023-08-24 19:48:06* Test Item Value Reference Range Interpretation Comme nts [place] (test code = 9028872057) 0.5 mmol/L 0.6-1.2 L ZAINAB (test code = ZAINAB) Toxic Range: ? Greater than 1.2 mmol/L Lab Interpretation (test code = 91083-6) Abnormal [facility]2023-08-24 19:48:06* Test Item Value Reference Range Interpretation Comme nts [place] (test code = 8149265020) 0.5 mmol/L 0.6-1.2 L ZAINAB (test code = ZAINAB) Toxic Range: ? Greater than 1.2 mmol/L Lab Interpretation (test code = 81161-9) Abnormal [facility]2023-08-24 19:48:06* Test Item Value Reference Range Interpretation Comme nts [place] (test code = 6799511019) 0.5 mmol/L 0.6-1.2 L ZAINAB (test code = ZAINAB) Toxic Range: ? Greater than 1.2 mmol/L Lab Interpretation (test code = 26932-6) Abnormal [facility]2023-08-24 19:48:06* Test Item Value Reference Range Interpretation Comme nts [place] (test code = 8327998251) 0.5 mmol/L 0.6-1.2 L ZAINAB (test code = ZAINAB) Toxic Range: ? Greater than 1.2 mmol/L Lab Interpretation (test code = 03504-2) Abnormal [facility]2023-08-24 19:48:06* Test Item Value Reference Range Interpretation Comme nts [place] (test code = 1373169907) 0.5 mmol/L 0.6-1.2 L ZAINAB (test code = ZAINAB) Toxic Range: ? Greater than 1.2 mmol/L Lab Interpretation (test code = 76400-0) Abnormal [facility]2023-08-24 19:48:06* Test Item Value Reference Range Interpretation Comme nts [place] (test code = 8918604572) 0.5 mmol/L 0.6-1.2 L ZAINAB (test code = ZAINAB) Toxic Range: ? Greater than 1.2 mmol/L Lab Interpretation (test code = 04166-5) Abnormal [facility]2023-08-24 19:48:06* Test Item Value Reference Range Interpretation Comme nts [place] (test code = 8038097679) 0.5 mmol/L 0.6-1.2 L ZAINAB (test code = ZAINAB) Toxic Range: ? Greater than 1.2 mmol/L Lab Interpretation (test code = 79440-4) Abnormal [facility]2023-08-24 19:48:06* Test Item Value Reference Range Interpretation Comme nts [place] (test code = 8126253657) 0.5 mmol/L 0.6-1.2 L ZAINAB (test code = ZAINAB) Toxic Range: ? Greater than 1.2 mmol/L Lab Interpretation (test code = 90913-2) Abnormal [facility]2023-08-24 19:48:06* Test Item Value Reference Range Interpretation Comme nts [place] (test code = 6825213439) 0.5 mmol/L 0.6-1.2 L ZAINAB (test code = ZAINAB) Toxic Range: ? Greater than 1.2 mmol/L Lab Interpretation (test code = 23611-0) Abnormal [facility]2023-08-24 19:48:06* Test Item Value Reference Range Interpretation Comme nts [place] (test code = 5917491888) 0.5 mmol/L 0.6-1.2 L ZAINAB (test code = ZAINAB) Toxic Range: ? Greater than 1.2 mmol/L Lab Interpretation (test code = 08379-7) [facility]normal [facility] [id number] 17:24:34 * Test Item Value Reference Range Interpretation Comme nts TSH (test code = 5664959753) 1.07 See_Comment [Automated messa ge] The system which generated this result transmitted reference range: 0.45 - 4.70 mIU/L. The reference range was not used to interpret this result as normal/abnormal. Lab Interpretation (test code = 69403-0) Normal [facility] [id number] 17:24:34 * Test Item Value Reference Range Interpretation Comme nts TSH (test code = 5606275792) 1.07 See_Comment [Automated messa ge] The system which generated this result transmitted reference range: 0.45 - 4.70 mIU/L. The reference range was not used to interpret this result as normal/abnormal. Lab Interpretation (test code = 70424-2) Normal [facility] [id number] 17:24:34 * Test Item Value Reference Range Interpretation Comme nts TSH (test code = 0185890835) 1.07 See_Comment [Automated messa ge] The system which generated this result transmitted reference range: 0.45 - 4.70 mIU/L. The reference range was not used to interpret this result as normal/abnormal. Lab Interpretation (test code = 74053-4) Normal [facility] STIMULATING [id number] 17:24:34 * Test Item Value Reference Range Interpretation Comme nts TSH (test code = 3160946329) 1.07 See_Comment [Automated messa ge] The system which generated this result transmitted reference range: 0.45 - 4.70 mIU/L. The reference range was not used to interpret this result as normal/abnormal. Lab Interpretation (test code = 07034-9) Normal [facility] [id number] 17:24:34 * Test Item Value Reference Range Interpretation Comme nts TSH (test code = 6622186942) 1.07 See_Comment [Automated messa ge] The system which generated this result transmitted reference range: 0.45 - 4.70 mIU/L. The reference range was not used to interpret this result as normal/abnormal. Lab Interpretation (test code = 97741-3) Normal [facility] [id number] 17:24:34 * Test Item Value Reference Range Interpretation Comme nts TSH (test code = 1944348527) 1.07 See_Comment [Automated messa ge] The system which generated this result transmitted reference range: 0.45 - 4.70 mIU/L. The reference range was not used to interpret this result as normal/abnormal. Lab Interpretation (test code = 07880-1) Normal [facility] [id number] 17:24:34 * Test Item Value Reference Range Interpretation Comme nts TSH (test code = 4147554695) 1.07 See_Comment [Automated messa ge] The system which generated this result transmitted reference range: 0.45 - 4.70 mIU/L. The reference range was not used to interpret this result as normal/abnormal. Lab Interpretation (test code = 23409-0) Normal [facility] [id number] 17:24:34 * Test Item Value Reference Range Interpretation Comme nts TSH (test code = 2668033858) 1.07 See_Comment [Automated messa ge] The system which generated this result transmitted reference range: 0.45 - 4.70 mIU/L. The reference range was not used to interpret this result as normal/abnormal. Lab Interpretation (test code = 21026-4) Normal [facility] [id number] 17:24:34 * Test Item Value Reference Range Interpretation Comme nts TSH (test code = 8798508417) 1.07 See_Comment [Automated messa ge] The system which generated this result transmitted reference range: 0.45 - 4.70 mIU/L. The reference range was not used to interpret this result as normal/abnormal. Lab Interpretation (test code = 10905-3) Normal [facility] [id number] 17:24:34 * Test Item Value Reference Range Interpretation Comme nts TSH (test code = 4094588475) 1.07 See_Comment [Automated messa ge] The system which generated this result transmitted reference range: 0.45 - 4.70 mIU/L. The reference range was not used to interpret this result as normal/abnormal. Lab Interpretation (test code = 34449-4) Normal [facility] [id number] 17:24:34 * Test Item Value Reference Range Interpretation Comme nts TSH (test code = 7522008539) 1.07 See_Comment [Automated messa ge] The system which generated this result transmitted reference range: 0.45 - 4.70 mIU/L. The reference range was not used to interpret this result as normal/abnormal. Lab Interpretation (test code = 54972-8) Normal [facility] [id number] 17:24:34 * Test Item Value Reference Range Interpretation Comme nts TSH (test code = 7963713996) 1.07 See_Comment [Automated messa ge] The system which generated this result transmitted reference range: 0.45 - 4.70 mIU/L. The reference range was not used to interpret this result as normal/abnormal. Lab Interpretation (test code = 43939-7) Normal [facility] [id number] 17:24:34 * Test Item Value Reference Range Interpretation Comme nts TSH (test code = 0837417923) 1.07 See_Comment [Automated messa ge] The system which generated this result transmitted reference range: 0.45 - 4.70 mIU/L. The reference range was not used to interpret this result as normal/abnormal. Lab Interpretation (test code = 59136-0) Normal [facility] [id number] 17:24:34 * Test Item Value Reference Range Interpretation Comme nts TSH (test code = 7527094634) 1.07 See_Comment [Automated [employer]] The system which generated this result transmitted reference range: 0.45 - 4.70 mIU/L. The reference range was not used to interpret this result as normal/abnormal. Lab Interpretation (test code = 72611-1) Normal [facility] (40760)(TOTAL CHOLESTEROL, TRIGLYCERIDES, HDL)2022-10-05 16:54:48* Test Item Value Reference Range Interpretation Comme nts CHOL (test code = 2974876443) 183 mg/dL 120-200 HDL (test code = 2626655011) 40 mg/dL >=50 L HDLC RATIO (test code = 5988045077) 4.6 <=4.5 H TRIG (test code = 7242530998) 128 mg/dL 30-170 LDL CHOL (test code = 60995-2) 117 mg/dL <=160 VLDL (test code = 1897576169) 26 mg/dL 5-60 Lab Interpretation (test cod e = 29683-6) Abnormal [facility] (88034)(TOTAL CHOLESTEROL, TRIGLYCERIDES, HDL)2022-10-05 16:54:48* Test Item Value Reference Range Interpretation Comme nts CHOL (test code = 7791080417) 183 mg/dL 120-200 HDL (test code = 3781956189) 40 mg/dL >=50 L HDLC RATIO (test code = 7547618281) 4.6 <=4.5 H TRIG (test code = 7133903193) 128 mg/dL 30-170 LDL CHOL (test code = 50533-9) 117 mg/dL <=160 VLDL (test code = 3772039594) 26 mg/dL 5-60 Lab Interpretation (test cod e = 76417-4) Abnormal [facility] (03619)(TOTAL CHOLESTEROL, TRIGLYCERIDES, HDL)2022-10-05 16:54:48* Test Item Value Reference Range Interpretation Comme nts CHOL (test code = 5937915237) 183 mg/dL 120-200 HDL (test code = 4488270062) 40 mg/dL >=50 L HDLC RATIO (test code = 8995315117) 4.6 <=4.5 H TRIG (test code = 1039471770) 128 mg/dL 30-170 LDL CHOL (test code = 73455-3) 117 mg/dL <=160 VLDL (test code = 6248135863) 26 mg/dL 5-60 Lab Interpretation (test cod e = 63331-5) Abnormal [facility]. METABOLIC PANEL (59862)2022-10-05 16:54:48* Test Item Value Reference Range Interpretation Comme nts NA (test code = 3182484475) 140 mmol/L 135-145 K (test code = 9670917026) 4.6 mmol/L 3.5-5.0 CL (test code = 5993999910) 106 mmol/L 98-108 CO2 TOTAL (test code = 7389258529) 28 mmol/L 23-31 AGAP (test code = 4970473107) 6 2-16 BUN (test code = 1166824606) 5 mg/dL 7-23 L GLUCOSE (test code = 1680964180) 90 mg/dL 70-110 CREATININE (test code = 6807316807) 0.54 mg/dL 0.50-1.04 TOTAL BILI (test code = 3353695170) 0.1 mg/dL 0.1-1.1 CALCIUM (test code = 7110531284) 9.6 mg/dL 8.6-10.6 T PROTEIN (test code = 3618781215) 6.2 g/dL 6.3-8.2 L ALBUMIN (test code = 1210805217) 4.0 g/dL 3.5-5.0 ALK PHOS (test code = 4168737631) 125 U/L 34-122 H ALTv (test code = 1742-6) 29 U/L 5-35 AST(SGOT) (test code = 7987243333) 24 U/L 13-40 eGFR (test code = 9766930307) 122.1 mL/min/1.73m2 ZAINAB (test code = ZAINAB) [...] imaging tests). Lab Interpretation (test code = 91575-7) [facility]normal [facility] (32388)(TOTAL CHOLESTEROL, TRIGLYCERIDES, HDL)2022-10-05 16:54:48* Test Item Value Reference Range Interpretation Comme nts CHOL (test code = 4276844750) 183 mg/dL 120-200 HDL (test code = 0085098913) 40 mg/dL >=50 L HDLC RATIO (test code = 2822590374) 4.6 <=4.5 H TRIG (test code = 3412222229) 128 mg/dL 30-170 LDL CHOL (test code = 27797-9) 117 mg/dL <=160 VLDL (test code = 0533322270) 26 mg/dL 5-60 Lab Interpretation (test cod e = 71832-0) [facility]normal [facility]OLIC PAN[facility] (59628)2022-10-05 16:54:48* Test Item Value Reference Range Interpretation Comme nts NA (test code = 5674161947) 140 mmol/L 135-145 K (test code = 2305485176) 4.6 mmol/L 3.5-5.0 CL (test code = 1133505298) 106 mmol/L 98-108 CO2 TOTAL (test code = 3298068420) 28 mmol/L 23-31 AGAP (test code = 5011895218) 6 2-16 BUN (test code = 1539113322) 5 mg/dL 7-23 L GLUCOSE (test code = 0030597197) 90 mg/dL 70-110 CREATININE (test code = 9281537440) 0.54 mg/dL 0.50-1.04 TOTAL BILI (test code = 8502180674) 0.1 mg/dL 0.1-1.1 CALCIUM (test code = 3683504384) 9.6 mg/dL 8.6-10.6 T PROTEIN (test code = 0679431707) 6.2 g/dL 6.3-8.2 L ALBUMIN (test code = 8139081359) 4.0 g/dL 3.5-5.0 ALK PHOS (test code = 8438775460) 125 U/L 34-122 H ALTv (test code = 1742-6) 29 U/L 5-35 AST(SGOT) (test code = 3430084824) 24 U/L 13-40 eGFR (test code = 8418866385) 122.1 mL/min/1.73m2 ZAINAB (test code = ZAINAB) [...] imaging tests). Lab Interpretation (test code = 83119-9) Abnormal [facility] (63560)(TOTAL CHOLESTEROL, TRIGLYCERIDES, HDL)2022-10-05 16:54:48* Test Item Value Reference Range Interpretation Comme nts CHOL (test code = 3560831683) 183 mg/dL 120-200 HDL (test code = 2037274275) 40 mg/dL >=50 L HDLC RATIO (test code = 9864841228) 4.6 <=4.5 H TRIG (test code = 9103638671) 128 mg/dL 30-170 LDL CHOL (test code = 31237-4) 117 mg/dL <=160 VLDL (test code = 6420163537) 26 mg/dL 5-60 Lab Interpretation (test cod e = 93547-3) Abnormal [facility] (55023)2022-10-05 16:54:48* Test Item Value Reference Range Interpretation Comme nts NA (test code = 8161006512) 140 mmol/L 135-145 K (test code = 7052872591) 4.6 mmol/L 3.5-5.0 CL (test code = 3034413196) 106 mmol/L 98-108 CO2 TOTAL (test code = 8184850286) 28 mmol/L 23-31 AGAP (test code = 3253425306) 6 2-16 BUN (test code = 8300495770) 5 mg/dL 7-23 L GLUCOSE (test code = 5109304673) 90 mg/dL 70-110 CREATININE (test code = 9109363068) 0.54 mg/dL 0.50-1.04 TOTAL BILI (test code = 5498161482) 0.1 mg/dL 0.1-1.1 CALCIUM (test code = 8323933858) 9.6 mg/dL 8.6-10.6 T PROTEIN (test code = 3411628502) 6.2 g/dL 6.3-8.2 L ALBUMIN (test code = 4417616105) 4.0 g/dL 3.5-5.0 ALK PHOS (test code = 8939571639) 125 U/L 34-122 H ALTv (test code = 1742-6) 29 U/L 5-35 AST(SGOT) (test code = 6153714026) 24 U/L 13-40 eGFR (test code = 9709423197) 122.1 mL/min/1.73m2 ZAINAB (test code = ZAINAB) [...] imaging tests). Lab Interpretation (test code = 15592-9) [facility]41061[facility]TOTAL CHOLESTEROL, TRIGLYCERIDES, HDL)2022-10-05 16:54:48* Test Item Value Reference Range Interpretation Comme nts CHOL (test code = 4464821832) 183 mg/dL 120-200 HDL (test code = 4213521339) 40 mg/dL >=50 L HDLC RATIO (test code = 3866525632) 4.6 <=4.5 H TRIG (test code = 2454602693) 128 mg/dL 30-170 LDL CHOL (test code = 87028-5) 117 mg/dL <=160 VLDL (test code = 4031776138) 26 mg/dL 5-60 Lab Interpretation (test cod e = 44909-0) Abnormal [facility] (57527)(TOTAL CHOLESTEROL, TRIGLYCERIDES, HDL)2022-10-05 16:54:48* Test Item Value Reference Range Interpretation Comme nts CHOL (test code = 1806823401) 183 mg/dL 120-200 HDL (test code = 0947911130) 40 mg/dL >=50 L HDLC RATIO (test code = 7843298806) 4.6 <=4.5 H TRIG (test code = 8214434018) 128 mg/dL 30-170 LDL CHOL (test code = 31679-8) 117 mg/dL <=160 VLDL (test code = 5749473606) 26 mg/dL 5-60 Lab Interpretation (test cod e = 49222-5) Abnormal [facility] (95549)(TOTAL CHOLESTEROL, TRIGLYCERIDES, HDL)2022-10-05 16:54:48* Test Item Value Reference Range Interpretation Comme nts CHOL (test code = 0305378112) 183 mg/dL 120-200 HDL (test code = 6521122378) 40 mg/dL >=50 L HDLC RATIO (test code = 9591128403) 4.6 <=4.5 H TRIG (test code = 9229822642) 128 mg/dL 30-170 LDL CHOL (test code = 34306-9) 117 mg/dL <=160 VLDL (test code = 1416968947) 26 mg/dL 5-60 Lab Interpretation (test cod e = 70613-3) Abnormal [facility] (58712)(TOTAL CHOLESTEROL, TRIGLYCERIDES, HDL)2022-10-05 16:54:48* Test Item Value Reference Range Interpretation Comme nts CHOL (test code = 0387372501) 183 mg/dL 120-200 HDL (test code = 7199411224) 40 mg/dL >=50 L HDLC RATIO (test code = 0803834502) 4.6 <=4.5 H TRIG (test code = 5305003318) 128 mg/dL 30-170 LDL CHOL (test code = 26019-3) 117 mg/dL <=160 VLDL (test code = 3052167434) 26 mg/dL 5-60 Lab Interpretation (test cod e = 64277-0) Abnormal [facility] (70181)(TOTAL CHOLESTEROL, TRIGLYCERIDES, HDL)2022-10-05 16:54:48* Test Item Value Reference Range Interpretation Comme nts CHOL (test code = 6877816975) 183 mg/dL 120-200 HDL (test code = 2639693646) 40 mg/dL >=50 L HDLC RATIO (test code = 0107107373) 4.6 <=4.5 H TRIG (test code = 8978476574) 128 mg/dL 30-170 LDL CHOL (test code = 60641-1) 117 mg/dL <=160 VLDL (test code = 0704932905) 26 mg/dL 5-60 Lab Interpretation (test cod e = 34306-5) Abnormal [facility] (12657)(TOTAL CHOLESTEROL, TRIGLYCERIDES, HDL)2022-10-05 16:54:48* Test Item Value Reference Range Interpretation Comme nts CHOL (test code = 1979643666) 183 mg/dL 120-200 HDL (test code = 9223501444) 40 mg/dL >=50 L HDLC RATIO (test code = 2516963967) 4.6 <=4.5 H TRIG (test code = 2643810425) 128 mg/dL 30-170 LDL CHOL (test code = 41538-2) 117 mg/dL <=160 VLDL (test code = 7849233810) 26 mg/dL 5-60 Lab Interpretation (test cod e = 18270-2) Abnormal [facility] (90093)(TOTAL CHOLESTEROL, TRIGLYCERIDES, HDL)2022-10-05 16:54:48* Test Item Value Reference Range Interpretation Comme nts CHOL (test code = 0451747503) 183 mg/dL 120-200 HDL (test code = 6750227169) 40 mg/dL >=50 L HDLC RATIO (test code = 4966945904) 4.6 <=4.5 H TRIG (test code = 9725274964) 128 mg/dL 30-170 LDL CHOL (test code = 52738-6) 117 mg/dL <=160 VLDL (test code = 6348532386) 26 mg/dL 5-60 Lab Interpretation (test cod e = 72212-3) Abnormal [facility] (50246)(TOTAL CHOLESTEROL, TRIGLYCERIDES, HDL)2022-10-05 16:54:48* Test Item Value Reference Range Interpretation Comme nts CHOL (test code = 5537645886) 183 mg/dL 120-200 HDL (test code = 2751687111) 40 mg/dL >=50 L HDLC RATIO (test code = 2166359397) 4.6 <=4.5 H TRIG (test code = 6613825591) 128 mg/dL 30-170 LDL CHOL (test code = 15429-9) 117 mg/dL <=160 VLDL (test code = 3342559155) 26 mg/dL 5-60 Lab Interpretation (test cod e = 62794-8) Abnormal [facility] (61598)(TOTAL CHOLESTEROL, TRIGLYCERIDES, HDL)2022-10-05 16:54:48* Test Item Value Reference Range Interpretation Comme nts CHOL (test code = 9540582150) 183 mg/dL 120-200 HDL (test code = 1468168698) 40 mg/dL >=50 L HDLC RATIO (test code = 2636904805) 4.6 <=4.5 H TRIG (test code = 3204827908) 128 mg/dL 30-170 LDL CHOL (test code = 85265-0) 117 mg/dL <=160 VLDL (test code = 1931126249) 26 mg/dL 5-60 Lab Interpretation (test cod e = 13504-7) Abnormal [facility] CenterGLYCOSYLATED HEMOGLOBIN (A1C)2022-10-05 15:51:11* Test Item Value Reference Range Interpretation Comme nts HGB A1C (test code = 4548-4) 5.1 % 4.0-5.7 ZAINAB (test code = ZAINAB) Reference RangesNormal: <5.7%Prediabetes: 5.7 - 6.4%Diabetes: > 6.5% Lab Interpretation (test code = 37043-0) [facility] 15:51:11* Test Item Value Reference Range Interpretation Comme nts HGB A1C (test code = 4548-4) 5.1 % 4.0-5.7 ZAINAB (test code = ZAINAB) Reference RangesNormal: <5.7%Prediabetes: 5.7 - 6.4%Diabetes: > 6.5% Lab Interpretation (test code = 59920-1) [facility]22-10-05 15:51:11* Test Item Value Reference Range Interpretation Comme nts HGB A1C (test code = 4548-4) 5.1 % 4.0-5.7 ZAINAB (test code = ZAINAB) Reference RangesNormal: <5.7%Prediabetes: 5.7 - 6.4%Diabetes: > 6.5% Lab Interpretation (test code = 02189-1) [facility]22-10-05 15:51:11* Test Item Value Reference Range Interpretation Comme nts HGB A1C (test code = 4548-4) 5.1 % 4.0-5.7 ZAINAB (test code = ZAINAB) Reference RangesNormal: <5.7%Prediabetes: 5.7 - 6.4%Diabetes: > 6.5% Lab Interpretation (test code = 37878-3) [facility]22-10-05 15:51:11* Test Item Value Reference Range Interpretation Comme nts HGB A1C (test code = 4548-4) 5.1 % 4.0-5.7 ZAINAB (test code = ZAINAB) Reference RangesNormal: <5.7%Prediabetes: 5.7 - 6.4%Diabetes: > 6.5% Lab Interpretation (test code = 29900-4) [facility]22[facility]-05 15:51:11* Test Item Value Reference Range Interpretation Comme nts HGB A1C (test code = 4548-4) 5.1 % 4.0-5.7 ZAINAB (test code = ZAINAB) Reference RangesNormal: <5.7%Prediabetes: 5.7 - 6.4%Diabetes: > 6.5% Lab Interpretation (test code = 21960-4) [facility]2022-10-05 15:51:11* Test Item Value Reference Range Interpretation Comme nts HGB A1C (test code = 4548-4) 5.1 % 4.0-5.7 ZAINAB (test code = ZAINAB) Reference RangesNormal: <5.7%Prediabetes: 5.7 - 6.4%Diabetes: > 6.5% Lab Interpretation (test code = 35746-6) [facility]2022-10-05 15:51:11* Test Item Value Reference Range Interpretation Comme nts HGB A1C (test code = 4548-4) 5.1 % 4.0-5.7 ZAINAB (test code = ZAINAB) Reference RangesNormal: <5.7%Prediabetes: 5.7 - 6.4%Diabetes: > 6.5% Lab Interpretation (test code = 12777-4) [facility]2022-10-05 15:51:11* Test Item Value Reference Range Interpretation Comme nts HGB A1C (test code = 4548-4) 5.1 % 4.0-5.7 ZAINAB (test code = ZAINAB) Reference RangesNormal: <5.7%Prediabetes: 5.7 - 6.4%Diabetes: > 6.5% Lab Interpretation (test code = 83393-9) [facility]2022-10-05 15:51:11* Test Item Value Reference Range Interpretation Comme nts HGB A1C (test code = 4548-4) 5.1 % 4.0-5.7 ZAINAB (test code = ZAINAB) Reference RangesNormal: <5.7%Prediabetes: 5.7 - 6.4%Diabetes: > 6.5% Lab Interpretation (test code = 83733-7) [facility]2022-10-05 15:51:11* Test Item Value Reference Range Interpretation Comme nts HGB A1C (test code = 4548-4) 5.1 % 4.0-5.7 ZAINAB (test code = ZAINAB) Reference RangesNormal: <5.7%Prediabetes: 5.7 - 6.4%Diabetes: > 6.5% Lab Interpretation (test code = 76986-9) Normal [facility]C)2022-10-05 15:51:11* Test Item Value Reference Range Interpretation Comme nts HGB A1C (test code = 4548-4) 5.1 % 4.0-5.7 ZAINAB (test code = ZAINAB) Reference RangesNormal: <5.7%Prediabetes: 5.7 - 6.4%Diabetes: > 6.5% Lab Interpretation (test code = 96594-6) [facility]2022-10-05 15:51:11* Test Item Value Reference Range Interpretation Comme nts HGB A1C (test code = 4548-4) 5.1 % 4.0-5.7 ZAINAB (test code = ZAINAB) Reference RangesNormal: <5.7%Prediabetes: 5.7 - 6.4%Diabetes: > 6.5% Lab Interpretation (test code = 29045-9) [facility]22[facility]-05 15:51:11* Test Item Value Reference Range Interpretation Comme nts HGB A1C (test code = 4548-4) 5.1 % 4.0-5.7 ZAINAB (test code = ZAINAB) Reference RangesNormal: <5.7%Prediabetes: 5.7 - 6.4%Diabetes: > 6.5% Lab Interpretation (test code = 10605-8) Normal [facility] WITH [id number] 15:20:32* Test Item Value Reference Range Interpretation Comme nts WBC (test code = 6690-2) 6.67 See_Comment [Automated messa ge] The system which generated this result transmitted reference range: 4.30 - 11.10 10*3/?L. The reference range was not used to interpret this result as normal/abnormal. RBC (test code = 789-8) 4.04 See_Comment [Automated [employer]] The system which generated this result [...] g/dL 31.6-35.1 L RDW-SD (test code = 36086-0) 47.8 fL 39.0-49.9 RDW-CV (test code = 788-0) 18.0 % 12.0-15.5 H PLT (test code = 777-3) 296 See_Comment [Automated [employer]] The system which generated this result transmitted reference range: 166 - 358 10*3/?L. The reference range was not used to interpret this result as normal/abnormal. MPV (test code = 23758-4) 10.7 fL 9.5-12.9 NRBC/100 WBC (test code = 9109145416) 0.0 See_Comment [Automated [employer]] The system which generated this result transmitted reference range: 0.0 - 10.0 /100 WBCs. The reference range was not used to interpret this result as normal/abnormal. NRBC x10^3 (test code = 5160015877) See_Comment [Automated [employer]] The system which generated this result transmitted reference range: 10*3/?L. The reference range was not used to interpret this result as normal/abnormal. GRAN MAT (NEUT) % (test code = 770-8) 70.0 % IMM GRAN % (test code = 7219610573) 0.40 % LYMPH % (test code = 736-9) 18.7 % MONO % (test code = 5905-5) 5.7 % EOS % (test code = 713-8) 4.5 % BASO % (test code = 706-2) 0.7 % GRAN MAT x10^3(ANC) (test code = 0500595001) 4.66 10*3/uL 1.88-7.09 IMM GRAN x10^3 (test code = 5897041843) 0.03 10*3/uL 0.00-0.06 LYMPH x10^3 (test code = 731-0) 1.25 10*3/uL 1.32-3.29 L MONO x10^3 (test code = 742-7) 0.38 10*3/uL 0.33-0.92 EOS x10^3 (test code = 711-2) 0.30 10*3/uL 0.03-0.39 BASO x10^3 (test code = 704-7) 0.05 10*3/uL 0.01-0.07 Lab Interpretation (test code = 47677-0) Abnormal [facility] WITH [id number] 15:20:32* Test Item Value Reference Range Interpretation Comme nts WBC (test code = 6690-2) 6.67 See_Comment [Automated [employer]] The system which generated this result transmitted reference range: 4.30 - 11.10 10*3/?L. The reference range was not used to interpret this result as normal/abnormal. RBC (test code = 789-8) 4.04 See_Comment [Automated [employer]] The system which generated this result [...] g/dL 31.6-35.1 L RDW-SD (test code = 28649-4) 47.8 fL 39.0-49.9 RDW-CV (test code = 788-0) 18.0 % 12.0-15.5 H PLT (test code = 777-3) 296 See_Comment [Automated messa ge] The system which generated this result transmitted reference range: 166 - 358 10*3/?L. The reference range was not used to interpret this result as normal/abnormal. MPV (test code = 41133-7) 10.7 fL 9.5-12.9 NRBC/100 WBC (test code = 1762090207) 0.0 See_Comment [Automated [employer]] The system which generated this result transmitted reference range: 0.0 - 10.0 /100 WBCs. The reference range was not used to interpret this result as normal/abnormal. NRBC x10^3 (test code = 3861816361) See_Comment [Automated messa ge] The system which generated this result transmitted reference range: 10*3/?L. The reference range was not used to interpret this result as normal/abnormal. GRAN MAT (NEUT) % (test code = 770-8) 70.0 % IMM GRAN % (test code = 1678045093) 0.40 % LYMPH % (test code = 736-9) 18.7 % MONO % (test code = 5905-5) 5.7 % EOS % (test code = 713-8) 4.5 % BASO % (test code = 706-2) 0.7 % GRAN MAT x10^3(ANC) (test code = 8327178916) 4.66 10*3/uL 1.88-7.09 IMM GRAN x10^3 (test code = 0275511677) 0.03 10*3/uL 0.00-0.06 LYMPH x10^3 (test code = 731-0) 1.25 10*3/uL 1.32-3.29 L MONO x10^3 (test code = 742-7) 0.38 10*3/uL 0.33-0.92 EOS x10^3 (test code = 711-2) 0.30 10*3/uL 0.03-0.39 BASO x10^3 (test code = 704-7) 0.05 10*3/uL 0.01-0.07 Lab Interpretation (test code = 10598-5) Abnormal [facility] WITH [id number] 15:20:32* Test Item Value Reference Range Interpretation [...] g/dL 31.6-35.1 L RDW-SD (test code = 76047-6) 47.8 fL 39.0-49.9 RDW-CV (test code = 788-0) 18.0 % 12.0-15.5 H PLT (test code = 777-3) 296 See_Comment [Automated messa ge] The system which generated this result transmitted reference range: 166 - 358 10*3/?L. The reference range was not used to interpret this result as normal/abnormal. MPV (test code = 98406-8) 10.7 fL 9.5-12.9 NRBC/100 WBC (test code = 4976536152) 0.0 See_Comment [Automated [employer]] The system which generated this result transmitted reference range: 0.0 - 10.0 /100 WBCs. The reference range was not used to interpret this result as normal/abnormal. NRBC x10^3 (test code = 5092538790) See_Comment [Automated messa ge] The system which generated this result transmitted reference range: 10*3/?L. The reference range was not used to interpret this result as normal/abnormal. GRAN MAT (NEUT) % (test code = 770-8) 70.0 % IMM GRAN % (test code = 7050159395) 0.40 % LYMPH % (test code = 736-9) 18.7 % MONO % (test code = 5905-5) 5.7 % EOS % (test code = 713-8) 4.5 % BASO % (test code = 706-2) 0.7 % GRAN MAT x10^3(ANC) (test code = 8273250982) 4.66 10*3/uL 1.88-7.09 IMM GRAN x10^3 (test code = 7748246699) 0.03 10*3/uL 0.00-0.06 LYMPH x10^3 (test code = 731-0) 1.25 10*3/uL 1.32-3.29 L MONO x10^3 (test code = 742-7) 0.38 10*3/uL 0.33-0.92 EOS x10^3 (test code = 711-2) 0.30 10*3/uL 0.03-0.39 BASO x10^3 (test code = 704-7) 0.05 10*3/uL 0.01-0.07 Lab Interpretation (test code = 90787-2) Abnormal [facility]2023-06-14 17:27:33* Test Item Value Reference Range Interpretation Comme nts [place] (test code = 4762289761) 0.3 mmol/L 0.6-1.2 L ZAINAB (test code = ZAINAB) Toxic Range: ? Greater than 1.2 mmol/L Lab Interpretation (test code = 72660-0) Abnormal [facility]2023-06-14 17:27:33* Test Item Value Reference Range Interpretation Comme nts [place] (test code = 0346508601) 0.3 mmol/L 0.6-1.2 L ZAINAB (test code = ZAINAB) Toxic Range: ? Greater than 1.2 mmol/L Lab Interpretation (test code = 74507-7) Abnormal [facility]2023-06-14 17:27:33* Test Item Value Reference Range Interpretation Comme nts [place] (test code = 6724073225) 0.3 mmol/L 0.6-1.2 L ZAINAB (test code = ZAINAB) Toxic Range: ? Greater than 1.2 mmol/L Lab Interpretation (test code = 06297-1) Abnormal [facility]2023-06-14 17:27:33* Test Item Value Reference Range Interpretation Comme nts [place] (test code = 9450611061) 0.3 mmol/L 0.6-1.2 L ZAINAB (test code = ZAINAB) Toxic Range: ? Greater than 1.2 mmol/L Lab Interpretation (test code = 55639-0) Abnormal [facility]2023-06-14 17:27:33* Test Item Value Reference Range Interpretation Comme nts [place] (test code = 4792632071) 0.3 mmol/L 0.6-1.2 L ZAINAB (test code = ZAINAB) Toxic Range: ? Greater than 1.2 mmol/L Lab Interpretation (test code = 91261-3) Abnormal [facility]2023-06-14 17:27:33* Test Item Value Reference Range Interpretation Comme nts [place] (test code = 9127724906) 0.3 mmol/L 0.6-1.2 L ZAINAB (test code = ZAINAB) Toxic Range: ? Greater than 1.2 mmol/L Lab Interpretation (test code = 82500-6) Abnormal [facility]2023-06-14 17:27:33* Test Item Value Reference Range Interpretation Comme nts [place] (test code = 7034291954) 0.3 mmol/L 0.6-1.2 L ZAINAB (test code = ZAINAB) Toxic Range: ? Greater than 1.2 mmol/L Lab Interpretation (test code = 64523-6) Abnormal [facility]2023-06-14 17:27:33* Test Item Value Reference Range Interpretation Comme nts [place] (test code = 4999457786) 0.3 mmol/L 0.6-1.2 L ZAINAB (test code = ZAINAB) Toxic Range: ? Greater than 1.2 mmol/L Lab Interpretation (test code = 24010-1) Abnormal [facility]2023-06-14 17:27:33* Test Item Value Reference Range Interpretation Comme nts [place] (test code = 5810380997) 0.3 mmol/L 0.6-1.2 L ZAINAB (test code = ZAINAB) Toxic Range: ? Greater than 1.2 mmol/L Lab Interpretation (test code = 91690-5) Abnormal [facility]2023-06-14 17:27:33* Test Item Value Reference Range Interpretation Comme nts [place] (test code = 2336270818) 0.3 mmol/L 0.6-1.2 L ZAINAB (test code = ZAINAB) Toxic Range: ? Greater than 1.2 mmol/L Lab Interpretation (test code = 12301-0) Abnormal [facility]2023-06-14 17:27:33* Test Item Value Reference Range Interpretation Comme nts [place] (test code = 5047675609) 0.3 mmol/L 0.6-1.2 L ZAINAB (test code = ZAINAB) Toxic Range: ? Greater than 1.2 mmol/L Lab Interpretation (test code = 41962-6) Abnormal [facility]2023-06-14 17:27:33* Test Item Value Reference Range Interpretation Comme nts [place] (test code = 0993235233) 0.3 mmol/L 0.6-1.2 L ZAINAB (test code = ZAINAB) Toxic Range: ? Greater than 1.2 mmol/L Lab Interpretation (test code = 07827-2) Abnormal [facility] W/AUTO DIFF WITH FRXJPELYS9909-03-95 06:12:05* Test Item Value Reference Range Interpretation [...] 0.00-0.10 ABS NUCLEATED RBCS (test code = 63067) 0.00 K/UL 0.00-0.11 RETICULOCYTE WITH LQZHSOVF2763-05-27 06:12:05* Test Item Value Reference Range Interpretation Comme nts RETICULOCYTE COUNT (test code = 1018) 2.50 % 0.80-2.40 H ABSOLUTE RETICULOCYTE (test code = 39665) 103.3 K/UL 32.0-105.0 [facility] has important pathology staff changes effective 04/12/2022. New pathology staff will provide uninterrupted, excellent patient care and clinical consultation. See URL: [email or web address]. UNLESS OTHERWISE INDICATED, ALL TESTING PERFORMED AT [facility] [address] [place] [address] EMPLOYMENT OFFICE CLERK: CHARLA HERNANDEZ M.D. CLIA NUMBER [id number] [place]. [id number] YAZMIN NON-REFLEX TO [id number] 05:55:49* Test Item Value Reference Range Interpretation Comme nts ANTI-NUCLEAR ANTIBODIES (test code = 3506) NEGATIVE NEGATIVE METHODOLOGY IS I NDIRECT IMMUNOFLUORESCENT ASSAY (IFA) WITH HUMAN EPITHELIAL (HEP-2) CELL LINE SUBSTRATE. FOLATE, [id number] 12:42:51* Test Item Value Reference Range Interpretation [...] . . . NG/ML >1504 TSH, THIRD IGPCYMRIKQ5073-12-53 11:05:54* Test Item Value Reference Range Interpretation Comme [facility] TSH, THIRD GENERATION (test code = 2821) 1.310 UIU/ML 0.400-4.100 VITAMIN [id number] 11:05:54* Test Item Value Reference Range Interpretation Comme [facility] VITAMIN B-12 (test code = 2840) 436 PG/ML 200-950 VITAMIN D, 25 GQ3428-74-72 11:03:45* Test Item Value Reference Range Interpretation Comme [facility] VITAMIN D, 25 OH (test code = [...] . . . . NG/ML 30-100 [facility] has important pathology staff changes effective 04/12/2022. New pathology staff will provide uninterrupted, excellent patient care and clinical consultation. See URL: [email or web address]. UNLESS OTHERWISE INDICATED, ALL TESTING PERFORMED AT [facility] [address] [place] [address] EMPLOYMENT OFFICE CLERK: CHARLA HERNANDEZ M.D. CLIA NUMBER [id number] [facility] [place]. [id number] URIC [id number] 05:28:57* Test Item Value Reference Range Interpretation Comme nts URIC ACID (test code = 2233) 6.7 MG/DL 2.7-6.1 H COMPREHENSIVE METABOLIC [id number] 05:28:57* Test Item Value Reference Range Interpretation Comme nts GLUCOSE (test code = 2217) 103 MG/DL 70-99 H BUN (test code = 2208) 9 MG/DL 6-20 CREATININE (test code = 2214) 0.72 MG/DL 0.60-1.30 eGFR (2020 CKD-EPI) (test code = 86898) 106 ML/MIN/1.73 >60 CALC BUN/CREAT (test code [...] as normal/abnormal. ALKALINE PHOSPHATASE (test code = 4) 129 U/L 40-115 H AST (test code = 2218) 21 U/L 9-40 ALT (test code = 2219) 26 U/L 5-40 LIPID [id number] 05:28:57* Test Item Value Reference Range Interpretation [...] SPECIMENS. FOR MOREINFORMATION, SEE CLIENT ANNOUNCEMENT AT [email or web address] RISK RATIO LDL/HDL (test code = 2238) 3.04 RATIO <3.22 HEMOGLOBIN [id number] 02:54:46* Test Item Value Reference Range Interpretation Comme nts HEMOGLOBIN A1c (test code = 86776) 5.6 % 4.2-5.6 CBC W/AUTO DIFF WITH [id number] 01:58:18* Test Item Value Reference Range Interpretation [...] = 1065) 0.0 /100 WBC'S See_Comment [Automated [employer] ge] The system which generated this result [...] 0.00-0.10 ABS NUCLEATED RBCS (test code = 98630) 0.00 K/UL 0.00-0.11 [id number] 20:05:22* Test Item Value Reference Range Interpretation Comme nts [place] (test code = 3966461058) 1.1 mmol/L 0.6-1.2 ZAINAB (test code = ZAINAB) Toxic Range: ? Greater than 1.2 mmol/L Lab Interpretation (test code = 41787-4) Normal [facility]2023-01-04 20:05:22* Test Item Value Reference Range Interpretation Comme nts [place] (test code = 8511065170) 1.1 mmol/L 0.6-1.2 ZAINAB (test code = ZAINAB) Toxic Range: ? Greater than 1.2 mmol/L Lab Interpretation (test code = 69896-6) Normal [facility]2023-01-04 20:05:22* Test Item Value Reference Range Interpretation Comme nts [place] (test code = 9033443574) 1.1 mmol/L 0.6-1.2 ZAINAB (test code = ZAINAB) Toxic Range: ? Greater than 1.2 mmol/L Lab Interpretation (test code = 25019-0) [address]01-04 20:05:22* Test Item Value Reference Range Interpretation Comme nts [place] (test code = 8249149149) 1.1 mmol/L 0.6-1.2 ZAINAB (test code = ZAINAB) Toxic Range: ? Greater than 1.2 mmol/L Lab Interpretation (test code = 77045-5) [address]01-04 20:05:22* Test Item Value Reference Range Interpretation Comme nts [place] (test code = 5663932653) 1.1 mmol/L 0.6-1.2 ZAINAB (test code = ZAINAB) Toxic Range: ? Greater than 1.2 mmol/L Lab Interpretation (test code = 81898-6) [address]01-04 20:05:22* Test Item Value Reference Range Interpretation Comme nts [place] (test code = 8560458940) 1.1 mmol/L 0.6-1.2 ZAINAB (test code = ZAINAB) Toxic Range: ? Greater than 1.2 mmol/L Lab Interpretation (test code = 00917-6) [place] [address]-01-04 20:05:22* Test Item Value Reference Range Interpretation Comme nts [place] (test code = 7180359284) 1.1 mmol/L 0.6-1.2 ZAINAB (test code = ZAINAB) Toxic Range: ? Greater than 1.2 mmol/L Lab Interpretation (test code = 92420-2) [place] [address]-01-04 20:05:22* Test Item Value Reference Range Interpretation Comme nts [place] (test code = 3614911973) 1.1 mmol/L 0.6-1.2 ZAINAB (test code = ZAINAB) Toxic Range: ? Greater than 1.2 mmol/L Lab Interpretation (test code = 45780-5) [place] [address]-01-04 20:05:22* Test Item Value Reference Range Interpretation Comme nts [place] (test code = 5497946432) 1.1 mmol/L 0.6-1.2 ZAINAB (test code = ZAINAB) Toxic Range: ? Greater than 1.2 mmol/L Lab Interpretation (test code = 40192-1) [facility] 20:05:22* Test Item Value Reference Range Interpretation Comme nts [place] (test code = 6693302302) 1.1 mmol/L 0.6-1.2 ZAINAB (test code = ZAINAB) Toxic Range: ? Greater than 1.2 mmol/L Lab Interpretation (test code = 21968-9) [facility] 07:27:00* Test Item [...] mg/dL VERY HIGH.........>/= 190 mg/dL Comments to Regulator Inspector: ADD TO AM LABSLIPID PROFILE (CORONARY [...] code = LDL) MG/DL 0-99 Comments to Regulator Inspector: ADD TO AM LABSPROTHROMBIN [id number] 06:24:00* Test Item Value Reference Range Interpretation [...] systemic embolism. 3.0 - 4.5 Comments to Regulator Inspector: NURSE WILL BRING SPECIMEN TO LABPTT ACTIVATED 2018-07-20 06:24:00* Test Item Value Reference Range Interpretation Comme nts PTT ACTIVATED (test code = APTT) 29.3 SECONDS 22.0-33.0 N Comments to Regulator Inspector: NURSE WILL BRING SPECIMEN TO LABBASIC [...] CA) 9.6 MG/DL 8.4-10.2 N Comments to Regulator Inspector: NURSE WILL BRING SPECIMEN TO LAB Comments to Regulator Inspector: NURSE WILL BRING SPECIMEN TO IYDEBTQBZUIJ4040-34-79 06:13:00* Test Item Value Reference Range Interpretation Comme nts MAGNESIUM (test code = MAG) 2.2 MG/DL 1.6-2.3 N Comments to Regulator Inspector: NURSE WILL BRING SPECIMEN TO LAB Comments to Regulator Inspector: NURSE WILL BRING SPECIMEN TO LABCBC W/AUTO [id number] 06:02:00 * Test Item Value Reference Range [...] 0.0-0.1 N Notes Date/Time Note Provider Source 2023-08-08 15:01:4661-09-75I72:01: Order for Monoferric Infusion was faxed to [facility], fax # Fax- [phone]. Fax confirmed as received. I called patient to inform her that order was sent. 97763-4Jtwccwqoy encounter RkjiSF6698-47-87U54:02:10Telephone encounter NoteTXT1.2.840.923922.1.13.104.2.7.2.727 879|[id number] for patient zgoa32310-3XbpyDEAFQAOUPEDYsutjrwhx C-CDA narrative nhqs751682580Unwibif L Allen RNUT[address] NploCffokgcpmSeotljuepQLXA7761233439JJVH TKLSEXCZZTGMKYLJUM0116-61-90V94:02:101.2 .840.150350.1.72.3.15|1.2.840.953676.1.1 3.104.2.7.2.727879_[id number] Salvatore Westbrook RN [facility] 2023-08-08 12:08:22 0135-51-12J82:08:22 I ordered IV iron if you dont mind faxing it. Thank you! 73498-6Zpzgveick encounter RgyyXM8183-83-15P63:08:45Telephone encounter NoteTXT1.2.840.406116.1.13.104.2.7.2.727 879|[id number] for patient yfuw52166-1YpmfJGSNIVJLDRIWvuuslleu C-CDA narrative text[id number] FRAZIERHOBANQRHSXCHSJAQNG2326-10-99I22:08:451.2 .840.905838.1.72.3.15|1.2.840.302376.1.1 3.104.2.7.2.727879_[id number] [facility] 2023-08-02 15:54:54 4304-46-57Y34:54:54 Yes if you can send over the last infusion order we sent again to [facility]. Otherwise we can do it when in back next week 20443-6Tqfhkyzcl encounter NngqHZ9428-47-24I72:55:30Telephone encounter NoteTXT1.2.840.491957.1.13.104.2.7.2.727 879|[id number] for patient koif10629-5FecdFACFCUXJLJASkeyxuubl C-CDA narrative text[address]TXTX7755577555STEPHAN JOHNOWVMPSCNZOYGGIZGJD6479-28-51B27:55:301.2 .840.961921.1.72.3.15|1.2.840.783546.1.1 3.104.2.7.2.727879_[id number] [facility] 2023-07-30 15:40:16 3666-98-38H53:40:16 Patient called stating that her GI provider said he would order an Iron infusion for patient one more time, but that she would have to follow-up with hematology from now on for iron infusion orders. Patient would like to have the order placed and the infusion done at [facility] as before. There is no mention of this in BAKARI note. 84072-6Twxjoypzj encounter WctsCE4539-62-30M50:44:55Telephone encounter NoteTXT1.2.840.323525.1.13.104.2.7.2.727 879|[id number] for patient fndr24567-7XwzfJTGBZDJZYCWUmyivgsvu C-CDA narrative zmer443061842Hgoqyge L Allen RN[address]JhqkGiwetpvcxYaxmlwvilXFXI9658884770ETSI AVDNKYDHZFHKJUDQGN8478-42-81V32:44:551.2 .840.403212.1.72.3.15|1.2.840.828639.1.1 3.104.2.7.2.727879_[id number] Salvatore Westbrook RN [facility] 2023-07-02 12:20:48 7362-25-19G71:20:48 I called patient and explained that an iron infusion will not be ordered without a lab indicating the need. In the past her GI provider instructed patient to get iron infusion thru her PCP. Her GI provider did order the first one. Patient was instructed to call endo scheduling to schedule the pill cam, phone number given. Patient would like to get a different GI provider, but wants to keep scheduled appointment for 07/26/23 until a new provider is established. I gave patient my call back number and requested PSS schedule patient with a different GI provider.Appointment with Christiana Cabrera offered this , 07/04/23. Patient unable to make it and will keep appointment with Dr. Cordero on 07/26/23. 76277-0Adxbozjck encounter FxvmME5171-20-79F13:40:13Telephone encounter NoteTXT1.2.840.032272.1.13.104.2.7.2.727 879|[id number] for patient eojy22586-1BmofCOPWFBHVPRFVwamdnhyg C-CDA narrative danw232072701Mzbfakm L Allen RN[id number] NPVATEODLQBAREPEVJ9439-30-12L71:40:131.2 .840.816199.1.72.3.15|1.2.840.366111.1.1 3.104.2.7.2.727879_[id number] Salvatore Westbrook RN [facility] 2023-07-02 10:35:15 4947-79-18L99:35:15 Pt is requesting orders for an Iron Infusion. Pt states that GI were ordering these Infusions but later notified by GI that her PCP will need to continue ordering the treatment. Pt was advised by her PCP that they will not order Infusions and will need to follow up with her GI provider. Pt states that she's getting the run around and her health is constantly declining. Pt was life flight to [facility] recently due to a stroke. Pls advise. 71477-2Aurricuau encounter KxraJL1567-34-55Y88:41:12Telephone encounter NoteTXT1.2.840.894300.1.13.104.2.7.2.727 879|[id number] for patient qlog79252-3HvseWFLHOTQMGIMQxtovqzrn C-CDA narrative qmbo677778111Uqebtkvq [id number] TXSCVYJAGZZAAMETCV5205-23-85U31:41:121.2 .840.205447.1.72.3.15|1.2.840.666147.1.1 3.104.2.7.2.727879_[id number] Vega Gregory [facility] 2023-06-08 02:18:19 9241-65-77T59:18:19 Rn went over poc and discharge teaching with pt prior to departure. Iv discontinued and discharge packet went over with pt. Pt verbalizes understanding of education and medications. Pt states that no belogings were left in room. [facility] Pt using ed wheelchair 98706-2Sqhymtakd[address] [place] [address] CpbjCF5115-12-39J01:20:00[facility] NoteTXT1.2.840.592925.1.13.104.2.7.2.727 879|[id number] for patient qmub89177-8PxsySAZHRLRPZFHKhpfgmjgu C-CDA narrative [id number] M Shugart RN[address] StreetZx[id number] JRZUIQPVHDISXIQFCY9697-43-48A51:20:001.2 .840.038648.1.72.3.15|1.2.840.532123.1.1 3.104.2.7.2.727879_[id number] Lizandro Bah RN [facility] 2023-06-08 01:38:45 0886-33-86Q89:38:45 Patient currently sitting up, drinking water. Patient family to assist patient in changing clothes and then to perform walk test. Patient pending walk test and results at this time. [address]173-9Mvcikofwm[address] UwkoHH2980-76-21S05:39:37[facility] NoteTXT1.2.840.964065.1.13.104.2.7.2.727 879|[id number] for patient gbeh29697-0FilaQHZWLSPLRNTJtdqyceyg C-CDA narrative myvz751978798Osocke L Payne RNUT[id number] BXLGOTWSRFJFATBZRC5566-02-84U50:39:371.2 .840.053645.1.72.3.15|1.2.840.179934.1.1 3.104.2.7.2.727879_[id number] Kiley Darling RN [facility] 2023-06-08 01:29:14 5235-45-98B24:29:14 Dr. Pabon at bedside 32359-9Xniahkrro department HanlLT2413-18-23F08:29:20[facility] NoteTXT1.2.840.956860.1.13.104.2.7.2.727 879|[id number] for patient thhr93290-9BpndUJHUAZDNALYFewblqlfc C-CDA narrative text[id number] RNXXIBMMGGKAFISVMG9025-87-35P52:29:201.2 .840.617254.1.72.3.15|1.2.840.086465.1.1 3.104.2.7.2.727879_[id number] [facility] 2023-06-08 00:00:00 4622-51-85V86:00:00 Patient currently resting in ED stretcher, accompanied by visitors at this time. Patient awaiting clinical sobriety for d/c. NAD noted, VSS, RR e/u, bed locked in lowest position with side rails elevated x 2. Patient family denies additional needs at this time, will notify staff if needs anything. [address]59-0Hyfsslqjo[address] RimxJV8416-21-24J83:58:04[facility] NoteTXT1.2.840.403686.1.13.104.2.7.2.727 879|[id number] for patient ihpm24075-9XohhSPTMEZELDXSQzicdnqcb C-CDA narrative text[address] NctiQvnkqcgheHbxlkiwyvUBHG6325617320NZXW GKGJKEWTVWPALJRJXT7530-04-86Q38:58:041.2 .840.949364.1.72.3.15|1.2.840.052960.1.1 3.104.2.7.2.727879_[id number] [facility] 2023-06-07 22:44:51 0078-35-82O70:44:51 Pt straight cath x2 RN per need for UA, sterile protocol utilized.Prior to procedure, RN x2 explained procedure and rationale to patient to which the patient opened eyes and looked at Rns and then shut them. When asked if the patient would rather go to the bathroom for the urine sample, the patient shook her head No (left to right), but remained silent. When bed was being adjusted, pt opened eyes several times and moved both legs spontaneously and equally. Rn explained rationale and straight cath procedure twice to patient to which the patient remained silent.Pt remains on serial VS and cardiac monitoring. Bed locked lowered, bed rails up locked per fall risk. Will cont to assess and tx per plan of care 96796-9Njgbfygmv department EphgBJ1782-67-77A43:50:07[facility] NoteTXT1.2.840.425731.1.13.104.2.7.2.727 879|[id number] for patient litk90482-6BmcfGSZCNZRKNTREsaanarnu C-CDA narrative cphy783754882GxmjmulAngela Larsen RNUT[id number] RHVUYWXITHIDMAOAYC9481-59-52C03:50:071.2 .840.923928.1.72.3.15|1.2.840.491914.1.1 3.104.2.7.2.727879_[id number] Angela Larsen RN [facility] 2023-06-07 22:30:00 2284-34-74G70:30:00 Report taken from Armand PATEL. Patient name and confirmed. Patient chief complaint, current status and assessment findings, allergies, orders, infusion verify, and MAR reviewed. Patient plan of care discussed. Patient/family updated on plan of care and verbalizes understanding at this time. Patient denies additional needs at this time. Patient pending lab and imaging results at this time. Patient remains awaiting urine sample collection at this time.Patient resting in ED stretcher, NAD noted. Patient remains connected to continuous BP, SpO2, and cardiac monitoring. Patient remains responsive to vocal stimuli, NAD noted, VSS, RR e/u. See neuro focused assessment. 83883-6Wcaucloys department QwrnKR5160-43-32Q59:34:04[facility] department NoteTXT1.2.840.627562.1.13.104.2.7.2.727 879|[id number] for patient xisy49216-8IpzaIDIIHVJRBIGUrojubdye C-CDA narrative text[address]TXTX[address]5577555USUS IODEIQXHVGLNNSDTJL5978-58-41C05:34:041.2 .840.229507.1.72.3.15|1.2.840.292649.1.1 3.104.2.7.2.727879_[id number] [facility] 2023-06-07 22:06:00 3673-60-20O05:06:00 STROKE ALERT CANCELLED per neuroPaged out @ 2206 [address]143-7Eqlnijikk[address] XmdbAW3903-39-67W54:09:37[facility] NoteTXT1.2.840.634219.1.13.104.2.7.2.727 879|[id number] for patient vrgn34837-8FgmoHQSPSFYKYKFEvppzkkkp C-CDA narrative text[address]TXTX7755577555USUS UMCAIDMIULEKNUYUHP0583-50-93Z73:09:371.2 .840.641377.1.72.3.15|1.2.840.187085.1.1 3.104.2.7.2.727879_[id number] [facility] 2023-06-07 22:04:19 6074-75-23V51:04:19 Neuro resident verbalizes he is canceling the stroke alert. 72591-5Vhswgxxdb department LstbTU2143-57-31J66:04:36[facility] NoteTXT1.2.840.740927.1.13.104.2.7.2.727 879|[id number] for patient pbch85614-5MxstBWJNGHBTMGYXwcoqujrr C-CDA narrative xfjf871685547Srgmwer C Fillman RNUT[id number] VHYBDBRYARSXUALRTH6878-43-09W37:04:361.2 .840.152034.1.72.3.15|1.2.840.876119.1.1 3.104.2.7.2.727879_[id number] Puneet Coker RN [facility] 2023-06-07 22:04:00 8847-73-68H22:04:00 Stroke orders cancelled per neurology faculty and Dr. Pabon at this time. 16012-4Vfvcbjxpt department SpslVO2851-10-87M05:13:17[facility] NoteTXT1.2.840.565842.1.13.104.2.7.2.727 879|[id number] for patient mnwe19538-0DhfsCGBFKKEKFNUDqiusmapc C-CDA narrative PeerJ[id number] YTFMSHQEMWDKDRFVIS9258-30-67L91:13:171.2 .840.191574.1.72.3.15|1.2.840.612824.1.1 3.104.2.7.2.727879_[id number] [facility] 2023-06-07 21:54:15 7485-90-50W39:54:[address] Reflexes intact, will not follow commands or speak, however. 79557-9Ecuwselab department ImxjRR5699-78-07S79:54:50[facility] NoteTXT1.2.840.787816.1.13.104.2.7.2.727 879|[id number] for patient vtvs77147-9ApegPDOXOCXOKRWKaodxwucs C-CDA narrative PeerJUTMBUT[address]TXTX[address]5577555USUS VVKTWPPONGWMXADGFF5940-09-61T38:54:501.2 .840.355088.1.72.3.15|1.2.840.620637.1.1 3.104.2.7.2.727879_[id number] [facility] 2023-06-07 21:40:00 1288-64-19X93:40:[address] via stretcher, pt connected to serial VS and cardiac monitoring. Neuro resident in CTIn CT, Pt appeared to be selectively following commands and opening eyes. Pt was addressed in both Ecuadorean and Palauan, yet did not answer questions verbally nor with any head shakes/ nods. Pt resp e/u on RA w equal chest rise and fall. Skin warm dry approp tone. When pt opened eyes on command, PERRLA 4mm. Labs drawn. 18594-8Ynqtwyumw department WprcPJ4481-26-37F82:07:35Emergency department NoteTXT1.2.840.016161.1.13.104.2.7.2.727 879|[id number] for patient naqp82920-5YykfFYSFAOAQYFESsexpecqr C-CDA narrative textUT[address]TXTX7755577555USUS UPIPRHNFCYKRMJFZAQ9611-81-42M55:07:351.2 .840.561246.1.72.3.15|1.2.840.553032.1.1 3.104.2.7.2.727879_[id number] [facility] 2023-06-07 21:39:01 6284-19-87F95:39:01 Shivani Schuler is a 47 year old female presents to ED via Life flight with CC of stroke like symptoms onset 1999. Flight crew reports that on scene pt was agressively shaking and resposive to questions, pt then became still and no longer responded to assessment, during transport no sign of seizure activity. Pt at triage responds to pain, VSWNL, [place] [address]-4Moxdcjexa department WfcjLH8848-71-22S72:42:27[facility] department NoteTXT1.2.840.170256.1.13.104.2.7.2.727 879|[id number] for patient wznt97034-3WfqsPKFQKSDCFXIWlrrofwlk C-CDA narrative textUT[address] GremWesnuvacwVqzdjuakqYMAY3674447700NRRI DDXYZQRMIJXTIUOOFH7087-54-99K67:42:271.2 .840.635226.1.72.3.15|1.2.840.713367.1.1 3.104.2.7.2.727879_[id number] [facility] 2023-06-07 21:35:00 1608-92-50Q15:35:00 Shivani Schuler is a 47 year old female who presents from home([place]) via Life Flight after pt's daughter heard pt yell from another room and when she went to check on her she found her on the floor and unresponsive so she called EMS. Life flight reports upon EMS arrival pt was nodding to the questions that EMS was asking but stopped when life flight arrived. Pt has all reflexes intact, respirations unlabored, pupils PERRLA(pt resists the pupil test initially, was moving head back and forth and squinting eyes shut. 47817-7Jifgajsaj department QgeqAZ9509-47-99W87:09:58[facility] department [id number]|[id number] for patient [id number] C-CDA narrative [address] Bo[id number] NHGWRKNNYIXOOSVDQR6266-66-25I12:09:581.2 .840.941800.1.72.3.15|1.2.840.927998.1.1 [id number] [facility] 2023-06-07 21:32:00 2306-12-25F94:32:00 [facility] Emergency Department NotePatient Name: Shivani Jacome of : 1975 47 year old femaleTreatment Room: [address] [place] [address] Record Number: [id number] [facility] Physician: JAE HollowayPatient Escorted by: Self [9]Mode of Arrival: [facility] - [facility] [16]EMS Treatment 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 Patient was not moving any extremities and not following commands.VSS. In NAD.Hx of Bipolar, anxiety and schizoaffective disorder.Patient is not talking to staff and not following any commands.Past Medical History/Immunizations:No past medical history on file.Tetanus received in last 5 years: Unable to assessAllergies:AllergiesAllergen ReactionsSulfa (Sulfonamide Antibiotics) HivesPast Social History:Tobacco UseNever smoked or used smokeless tobacco.Past Surgical History:Past Surgical History:Procedure Laterality DateCOLONOSCOPY N/A 11/13/2022Surgeon: Dominic Keita MD; Location: ENDOSCOPY ([facility]) OR LOCATIONESOPHAGOGASTRODUODENOSCOPY N/A 11/13/2022Surgeon: Dominic Keita MD; Location: ENDOSCOPY ([facility]) OR LOCATIONReview of Systems:Review of SystemsConstitutional: Negative for activity change, appetite change, chills, diaphoresis, fatigue, fever, unexpected weight change, weight gain and weight loss.HENT: Negative for congestion, dental problem, drooling, ear discharge, ear pain, facial swelling, hearing loss, mouth sores, nosebleeds, postnasal drip, rhinorrhea, sinus pressure, sneezing, sore throat, tinnitus, trouble swallowing and voice change.Eyes: Negative for photophobia, pain, discharge, redness, itching and visual disturbance.Respiratory: Negative for apnea, cough, choking, chest tightness, shortness of breath, wheezing and stridor.Breasts: Negative for discharge, mass, pain and unequal size.Cardiovascular: Negative for chest pain, palpitations and leg swelling.Gastrointestinal: Negative for abdominal distention, abdominal pain, anal bleeding, blood in stool, constipation, diarrhea, nausea, rectal pain and vomiting.Genitourinary: Negative for bladder incontinence, dysuria, urgency, polyuria, frequency, hematuria, flank pain, decreased urine volume, vaginal bleeding, vaginal discharge, enuresis, difficulty urinating, genital sores, vaginal pain, menstrual problem, pelvic pain, dyspareunia and nocturia.Musculoskeletal: Negative for arthralgias, back pain, gait problem, joint swelling, myalgias, neck pain and neck stiffness.Skin: Negative for color change, pallor, rash and wound.Neurological: Negative for dizziness, tremors, seizures, syncope, facial asymmetry, speech difficulty, weakness, light-headedness, numbness and headaches.Psychiatric/Behavioral: Negative for agitation, behavioral problems, confusion, decreased concentration, dysphoric mood, hallucinations, self-injury, sleep disturbance and suicidal ideas. The patient is not nervous/anxious and is not hyperactive.+ catatoniaHematological: Negative for adenopathy, cold intolerance and heat intolerance. Does not bruise/bleed easily.Endocrine: Negative for goiter, hair loss, cold intolerance, heat intolerance, polydipsia, polyphagia, polyuria, weight gain and weight loss.Physical Exam:ED Triage VitalsWeight 06/07/232133 136.1 kg (300 lb)Actual or estimated 06/07/232133 Estimated by patient/family reportHeight 06/07/232133 1.676 m (5' 6")BP 06/07/232134 111/72Pulse 06/07/232134 69Resp 06/07/232134 20Temp 06/07/232134 36.1 ?C (97 ?F)Temp source 06/07/232134 AxillarySpO2 06/07/232134 99 %Measured on 06/07/232134 Room airPhysical ExamVitals and nursing note reviewed.Constitutional:General: She is not in acute distress.Appearance: Normal appearance. She is obese. She is not ill-appearing, toxic-appearing or diaphoretic.HENT:Head: Normocephalic and atraumatic.Right Ear: Tympanic membrane and ear canal normal. There is no impacted cerumen.Left Ear: Tympanic membrane and ear canal normal. There is no impacted cerumen.Nose: Nose normal. No congestion or rhinorrhea.Mouth/Throat:Mouth: Mucous membranes are moist.Pharynx: Oropharynx is clear. No oropharyngeal exudate or posterior oropharyngeal erythema.Eyes:General: No scleral icterus.Right eye: No discharge.Left eye: No discharge.Extraocular Movements: Extraocular movements intact.Conjunctiva/sclera: Conjunctivae normal.Pupils: Pupils are equal, round, and reactive to light.Neck:Vascular: No carotid bruit.Cardiovascular:Rate and Rhythm: Normal rate and regular rhythm.Pulses: Normal pulses.Heart sounds: Normal heart sounds. No murmur heard.No friction rub. No gallop.Pulmonary:Effort: Pulmonary effort is normal. No respiratory distress.Breath sounds: Normal breath sounds. No stridor. No wheezing, rhonchi or rales.Chest:Chest wall: No tenderness.Abdominal:General: Abdomen is flat. Bowel sounds are normal. There is no distension.Palpations: Abdomen is soft. There is no mass.Tenderness: There is no abdominal tenderness. There is no right CVA tenderness, left CVA tenderness, guarding or rebound.Hernia: No hernia is present.Musculoskeletal:General: No swelling, tenderness, deformity or signs of injury. Normal range of motion.Cervical back: Normal range of motion and neck supple. No rigidity or tenderness.Right lower leg: No edema.Left lower leg: No edema.Lymphadenopathy:Cervical: No cervical adenopathy.Skin:General: Skin is warm and dry.Capillary Refill: Capillary refill takes less than 2 seconds.Coloration: Skin is not jaundiced or pale.Findings: No bruising, erythema, lesion or rash.Neurological:General: No focal deficit present.Mental Status: She is oriented to person, place, and time. Mental status is at baseline.Cranial Nerves: No cranial nerve deficit.Sensory: No sensory deficit.Motor: No weakness.Coordination: Coordination normal.Gait: Gait normal.Deep Tendon Reflexes: Reflexes normal.Psychiatric:Comments: + catatonicRadiology:CT ACUTE STROKE ANGIOGRAM HEADPreliminary ResultCT STROKE ANGIOGRAM HEAD, CT STROKE ANGIOGRAM NECKHISTORY: 47 years old, Female with Neuro deficit, acute, stroke suspectedRad: please obtain POCT creatinine prior to CTA head/neckTECHNIQUE: CTA of the head and neck was performed with IV contrast. MIPreconstructions were performed.COMPARISON: None.FINDINGS:CTA NECK:Aortic arch and major vessels: There is a three-vessel aortic arch. Thevessels originating from the arch are patent.Carotid arteries: Both common carotid arteries are patent. The carotidbifurcations and distal cervical ICA segments are widely patent.Vertebral arteries: The vertebral arteries originate from the subclavianarteries and patent bilaterally.CTA HEAD:The origins of both posterior-inferior cerebellar arteries are identified.The basilar artery is normal in caliber. The superior cerebellar arteriesare patent. The HAND BRIM IRONER are patent bilaterally. No sizable posteriorcommunicating arteries are seen.The petrous, cavernous and supraclinoid internal carotid segments arewidely patent. The GIBSON and MCA are patent bilaterally. An anteriorcommunicating artery is seen.The dural venous sinuses are opacified and unremarkable.IMPRESSIONNo large vessel occlusion or high-grade stenosis of the head and neckarteries.Preliminary Report Dictated by Resident: Redd Valderrama ACUTE STROKE ANGIOGRAM NECKPreliminary ResultCT STROKE ANGIOGRAM HEAD, CT STROKE ANGIOGRAM NECKHISTORY: 47 years old, Female with Neuro deficit, acute, stroke suspectedRad: please obtain POCT creatinine prior to CTA head/neckTECHNIQUE: CTA of the head and neck was performed with IV contrast. MIPreconstructions were performed.COMPARISON: None.FINDINGS:CTA NECK:Aortic arch and major vessels: There is a three-vessel aortic arch. Thevessels originating from the arch are patent.Carotid arteries: Both common carotid arteries are patent. The carotidbifurcations and distal cervical ICA segments are widely patent.Vertebral arteries: The vertebral arteries originate from the subclavianarteries and patent bilaterally.CTA HEAD:The origins of both posterior-inferior cerebellar arteries are identified.The basilar artery is normal in caliber. The superior cerebellar arteriesare patent. The HAND BRIM IRONER are patent bilaterally. No sizable posteriorcommunicating arteries are seen.The petrous, cavernous and supraclinoid internal carotid segments arewidely patent. The GIBSON and MCA are patent bilaterally. An anteriorcommunicating artery is seen.The dural venous sinuses are opacified and unremarkable.IMPRESSIONNo large vessel occlusion or high-grade stenosis of the head and neckarteries.Preliminary Report Dictated by Resident: Redd Valderrama ACUTE STROKE HEAD WO CONTRASTPreliminary ResultEXAM: CT STROKE HEAD WO CONTRASTHISTORY: 47 years-old Female; Provided indication: Neuro deficit, acute,stroke suspected. Aggressively shaking followed by a period ofnonresponsiveness.TECHNIQUE: Axial CT of the head was performed without intravenouscontrast.Coronal and sagittal reformats were generated.COMPARISON: NoneFINDINGS:The ventricles and cerebral sulci are normal in caliber and configuration.No midline shift or pathological extra-axial fluid collection is present.The basal cisterns are unremarkable.No acute intracranial hemorrhage or significant mass effect is visualized.No parenchymal attenuation abnormality is seen. The sue-white matterdifferentiation is preserved.The mastoid air cells and visualized paranasal air sinuses are clear. Thecalvarium and central skull base are unremarkable.IMPRESSIONUnremarkable CT head.Preliminary Report Dictated by Resident: Redd Garvey Results:Lab ResultsPOCT GLUCOSE(AGE >30DAYS) - AbnormalResult Value Ref RangePOCT Glu (age>30days) 124 (*) 70 - 110 mg/dLCBC WITHOUT DIFF - AbnormalWBC 11.24 (*) 4.30 - 11.10 10*3/?LRBC 4.24 3.93 - 5.25 10*6/?LHGB 10.6 (*) 11.6 - 15.0 g/dLHCT 33.3 (*) 35.7 - 45.2 %MCH 25.0 (*) 25.9 - 32.8 pgMCV 78.5 (*) 80.6 - 95.5 fLMCHC 31.8 31.6 - 35.1 g/dLPLT 367 (*) 166 - 358 10*3/?LMPV 11.3 9.5 - 12.9 fLRDW-CV 15.4 12.0 - 15.5 %RDW-SD 43.8 39.0 - 49.9 fLNRBC x10^3 <0.01 10*3/?LNRBC/100 WBC 0.0 0.0 - 10.0 /100 WBCsIPF %BASIC METABOLIC PANEL (NA, K, CL, CO2, GLUCOSE, BUN, CREATININE, CA) - AbnormalNA 135 135 - 145 mmol/LK 4.3 3.5 - 5.0 mmol/LCL 103 98 - 108 mmol/LCO2 TOTAL 28 23 - 31 mmol/LAGAP 4 2 - 16BUN 11 7 - 23 mg/dLGLUCOSE 120 (*) 70 - 110 mg/dLCREATININE 0.71 0.50 - 1.04 mg/dLCALCIUM 9.3 8.6 - 10.6 mg/dLeGFR 107.0 mL/min/1.63i7RAVYTEANUN - AbnormalAPPEARANCE Clear ClearCOLOR Yellow YellowPH 6.0 4.8 - 8.0SP GRAVITY 1.058 (*) 1.003 - 1.030GLU U QUAL Normal NormalBLOOD 1+ (*) NegativeKETONES Negative NegativePROTEIN Negative NegativeUROBILIN Normal NormalBILIRUBIN Negative NegativeNITRITE Negative NegativeLEUK VISHAL Negative NegativeRBC/HPF 5 (*) 0 - 3 HPFWBC/HPF 2 0 - 5 HPFBACTERIA Negative NegativeMUCOUS Slight (*) Negative LPFSQ EPITH 3 (*) <=2 HPFURINE DRUG (IMMUNOASSAY) - COMPREHENSIVE DRUG SCREEN W/O REFLEX - AbnormalAMPHET Negative NegativeBARB U Negative NegativeBENZO U Negative NegativeCocaine Metabolite Negative NegativeMETHADONE Negative NegativeOPIATES Negative NegativePCP Negative NegativeTHC Presumptive Positive (*) NegativePROTHROMBIN TIME / INR - NormalPROTIME PATIENT 10.4 10.1 - 12.6 SecondsINR 0.9ACTIVATED PARTIAL THRMPLAS CIPRIANO - NormalAPTT Patient 29 26 - 36 SecondsTROPONIN I - NormalTROPONIN I 0.003 <=0.034 ng/mLLITHIUM - NormalLithium 0.6 0.6 - 1.2 mmol/LETHANOLALCOHOL <10 mg/dLEXTRA TUBE LAVEKG:If EKG completed, see Procedure Note.Orders and Treatments:Orders Placed This EncounterProceduresCT ACUTE STROKE HEAD WO CONTRASTCT ACUTE STROKE ANGIOGRAM HEADCT ACUTE STROKE ANGIOGRAM NECKPOCT Glucose (Age >30 Days) - Code StrokeProthrombin Time / INR - Code StrokeaPTT - Code StrokeCBC without Diff - Code StrokeTroponin I - Code StrokeBasic Metabolic Panel (NA, K, CL, CO2, Glucose, BUN, Creatinine, CA) - Code StrokeUrinalysisETHANOLURINE DRUG (IMMUNOASSAY) - COMPREHENSIVE DRUG SCREEN W/O REFLEXLithiumO2 Nasal CannulaOrders Placed This EncounterMedicationsNaCl 0.9% (NS) injection 5 mLiopamidol (ISOVUE 370-500 mL) injection 80 mLFirst Provider Eval:ED EventsDate/Time Event User Zxctykxx90/25/242147 Medical Screening Begins SIDNEY PABON DO --06/07/232147 First Provider Evaluation SIDNEY PABON DO --ED COURSEDiagnosis/Impression as of 06/08/23 0135Cerebrovascular accident (CVA), unspecified mechanismProcedures:ProceduresMDM:Medica l Decision MakingPatient here as a stroke activation.EMS called by family member at home due to patient screaming and becoming unresponsive on the floor at home. Patient was not moving any extremities and not following commands.VSS. In NAD.Hx of Bipolar, anxiety and schizoaffective disorder.Patient is not talking to staff and not following any commands.Amount and/or Complexity of Data ReviewedLabs: ordered. Decision-making details documented in ED Course.Details: Labs WNLRadiology: ordered. Decision-making details documented in ED Course.Details: CT ACUTE STROKE ANGIOGRAM HEADPerformed: 06/07/232155 | PreliminaryThis result has not been signed. Information might be incomplete.Impression: No large vessel occlusion or high-grade stenosis of the head and neck arteries. Preliminary Report Dictated by Resident: Redd Samuel06/07/232209 CT ACUTE STROKE ANGIOGRAM NECKPerformed: 06/07/232155 | PreliminaryThis result has not been signed. Information might be incomplete.Impression: No large vessel occlusion or high-grade stenosis of the head and neck arteries. Preliminary Report Dictated by Resident: Redd Samuel06/07/232152 CT ACUTE STROKE HEAD WO CONTRASTPerformed: 06/07/232147 | PreliminaryThis result has not been signed. Information might be incomplete.Impression: Unremarkable CT head. Preliminary Report Dictated by Resident: Redd SamuelDiscussion of management or test interpretation with external provider(s): Patient came in as a stroke activation.Neurology has since cancelled the stroke activation.Patient was in a brief catatonic state and now is out of it and is back to normal talking to family and drinking water.Denies SI or HI.Ok for discharge.Flowsheet Documentation:Scoring Tools:No data recordedDx: Acute catatonia, resolved.Hx of bipolar and mood disorder.Disposition/Condition:Discharge d home.KELLY Leroy PhysicianI Billing ID #[id number], Marysol, DO06/08/23 0136YoMarysol walters, 06/08/23 0147 73031-7Xeyfofgxf Emergency department DjusQF0856-01-91N60:47:25Physician Emergency department NoteTXT1.2.840.466371.1.13.104.2.7.2.727 879|[id number] for patient byzn96021-7Ysiazxfkd department NoteLNNARRATIVEFormatted C-CDA narrative textEMCARE EMERGENCY PHYSICIAN STAFFEMCARE EMERGENCY PHYSICIAN STAFF[address] Su[id number] TZBDKCSEAVROYRLKOP9334-36-95W71:47:251.2 .840.822401.1.72.3.15|1.2.840.281398.1.1 3.104.2.7.2.727879_[id number] [facility] 2023-06-04 10:50:05 8081-79-49V79:50:05 I called patient to ascertain what medication she is referring to that was Rxd but not received. No answer, I LVM with my call back number. 46225-1Sjqtdyikm encounter ZkzhOB8687-71-31K17:54:35Telephone encounter NoteTXT1.2.840.442226.1.13.104.2.7.2.727 879|[id number] for patient fjhg37003-2AlvrBXJXZWPASMIQeywycqld C-CDA narrative [id number] L Allen RN[id number] ZXIADLWCNGSYSIQKPY9034-42-89Z59:54:351.2 .840.177582.1.72.3.15|1.2.840.438668.1.1 3.104.2.7.2.727879_[id number] Salvatore Westbrook RN [facility] 2023-05-14 11:48:54 7994-37-99Z86:48:54 Gastroenterolgy appt has been placed. 25272-1Evuxnfnog encounter BlfjRE2403-43-76E90:49:10Telephone encounter NoteTXT1.2.840.246090.1.13.104.2.7.2.727 879|[id number] for patient tovt94271-3MogpQHNPFQRUWEFBwdkbfinp C-CDA narrative [id number] J Vela RNUT[address] [id number] WALKERJUIUFDWSQNCJEETNID3670-36-64O68:49:101.2 .840.503037.1.72.3.15|1.2.840.577670.1.1 3.104.2.7.2.727879_[id number] Jessica Cates Bird PATEL [facility] 2023-05-11 16:55:45 2569-36-68Y97:55:45 I called patient to follow-up from her [...] appointment with Dr. Boston for these symptoms. 78597-3Hdkwptoxy encounter NfleGA1948-97-21T11:06:28Telephone encounter NoteTXT1.2.840.771049.1.13.104.2.7.2.727 879|[id number] for patient nbeb56052-4HdklNXBWDICBDNWWyyxclrsw C-CDA narrative [id number] L Allen RN[address] VirgOlfzodhcnDfefszeooUOOA7024478474FVGW JBIUHGIEFFEEGXNRZN4594-06-73K23:06:281.2 .840.174258.1.72.3.15|1.2.840.108487.1.1 3.104.2.7.2.727879_[id number] Salvatore Westbrook RN [facility] 2023-05-09 16:58:43 0220-70-76F60:58:43 Pt called about her Iron infusion needed. GI provider requested patient's PCP follow up with this request. At initial visit, patient's GI provider did order Iron Infusion:11/23/22: Order for MONOFERRIC infusion sent to [facility], fax # [phone]. Fax was confirmed as received.The above information [...] refills of medications that can help her. 14802-6Ywwdfdnnt encounter DvvgCU0901-27-04G99:14:57Telephone encounter NoteTXT1.2.840.546365.1.13.104.2.7.2.727 879|[id number] for patient wutz45271-1YqdtJMBJPXAOWJIArcpeflcn C-CDA narrative [id number] L Allen RNUT[address] Pc[id number] KUJVQCGLGUNNOSJEZH6922-86-30N19:14:571.2 .840.448093.1.72.3.15|1.2.840.053303.1.1 3.104.2.7.2.727879_[id number] Salvatore Westbrook RN [facility] 2023-03-09 09:11:36 4747-89-48V25:11:36 I called patient to relay her GI provider's msg. Patient understands and asked if I could send last order for iron infusion to show her PCP so it can be done thru their office. [facility] her [facility]. 44171-9Ebqimtbzl encounter ItniGJ0062-90-17T76:20:32Telephone encounter NoteTXT1.2.840.048942.1.13.104.2.7.2.727 879|[id number] for patient nksl60397-8CyqqZVDDUEBVPKPKondxrrye C-CDA narrative [id number] L Allen RNUT[address] [id number] HOPELPZLVFJTXWNQGNFFYM7339-69-70Y78:20:321.2 .840.164515.1.72.3.15|1.2.840.702728.1.1 3.104.2.7.2.727879_[id number] Salvatore Westbrook RN [facility] 2023-03-09 08:51:07 4099-81-83K73:51:07 Hey salvatore I would but I think her PCP should be able to do this and because of previous issues with the order will let them handle it. It should be possible for PCP to do it if they put in a little effort 61676-6Ypoftlrsn encounter RinvSX7567-83-32X50:52:03Telephone encounter NoteTXT1.2.840.643375.1.13.104.2.7.2.727 879|[id number] for patient omjv74456-1MozbGGFQRTYEHYHIklejqelo C-CDA narrative textUT81 Hayes [id number] LANTIGUAKCUTGEWNOEKEXKQESZ0236-64-94X33:52:031.2 .840.713154.1.72.3.15|1.2.840.378222.1.1 3.104.2.7.2.727879_[id number] [facility] 2023-03-08 16:20:43 6575-33-65G84:20:43 I called patient who stated she received a chart msg from Dr. Cordero stating her iron was low and recommended she take infusion. Patient needs another referral for the iron infusion at [facility]. Patient stated her PCP has no clue on how to order infusion. Patient states GI provider did put in the last order that was done at [facility].11/23/22: Order for MONOFERRIC infusion sent to [facility], fax # [phone]. Fax was confirmed as received. 84866-4Jxjoaxzjt encounter QvymVS4776-17-86O78:42:41Telephone encounter NoteTXT1.2.840.888809.1.13.104.2.7.2.727 879|[id number] for patient ales02176-8QigzUUQBFYDQYQLHuoehqmsb C-CDA narrative [id number] L Allen RNUT[address] StreetTodl[id number] BTCVLJBCVQTDNMVCXJ4204-00-08E23:42:411.2 .840.432539.1.72.3.15|1.2.840.632622.1.1 3.104.2.7.2.727879_[id number] Salvatore Westbrook RN [facility] 2023-03-08 15:42:27 7073-57-60V96:42:27 Shivani Schuler is a 47 year old femalePt is calling requesting for referral to be [facility] in regards to getting iron infusion done. Please call the pt to discuss. Please advise. 05794-9Qkqckzudu encounter EzftBS1614-65-91Y69:45:39Telephone encounter NoteTXT1.2.840.922367.1.13.104.2.7.2.727 879|[id number] for patient qlfa64668-3NkdfPQHNSDMJHEWHbszbetxk C-CDA narrative bzxe874894843Vqpdmledug R Lazard[id number] LANTIGUAAATJHCFBNFMOMFONSU8821-85-19Q45:45:391.2 .840.404158.1.72.3.15|1.2.840.710800.1.1 3.104.2.7.2.727879_[id number] Daxa Scott [facility] 2023-02-15 10:30:00 3321-92-78T39:30:00 Images from the original note were not included.Venipuncture collection performed by clean technique on the right anticubitus and back of left hand. Total of 2 attempts were made. Slight pressure and a bandage/dressing were applied to the site(s). The patient experienced no complications. The following specimens were processed according to instructions and sent to [facility] laboratories per lab order on 02/15/2023:LT BLUESST 1REDLAVPPTDK GREEN (LiHep)DK GREEN (SodH)GRAYDK BLUE (K2)DK BLUE (S)ACDBlood CultureNIPT/NTD 57972-9Vfefq XyxnLL0804-65-38M46:31:50Nurse NoteTXT1.2.840.660775.1.13.104.2.7.2.727 879|[id number] for patient pdmy17133-9Xemgv NoteLNNARRATIVEFormatted C-CDA narrative text[id number] WALKERAWPVVRZHJZWEFZHMVZ4555-96-02F49:31:501.2 .840.908164.1.72.3.15|1.2.840.630765.1.1 3.104.2.7.2.727879_[id number] [facility] 2023-01-12 21:52:03 9533-34-67K86:52:03 Dr. Cordero,Please call patient and see how we can help. ED precautions if worsening symptoms.Sreeram 34785-7Zyfdllyaq encounter OkiwDH1013-21-76K96:52:03Telephone encounter NoteTXT1.2.840.106304.1.13.104.2.7.2.727 879|[id number] for patient zbsi50893-1VgvnMMPPOGIZSDREdwxhcjuw C-CDA narrative textIM-GASTROENTEROLOGY STAFFIM-GASTROENTEROLOGY STAFF[address] HpupWnizonncxYvajmmnwzFEYN9753873621JLJE SAXIDNAGTTDKIULLBO3725-06-96U64:52:031.2 .840.783434.1.72.3.15|1.2.840.141993.1.1 3.104.2.7.2.727879_[id number] IM-GASTROENTEROLO GY STAFF [facility] 2022-10-19 08:30:00 4219-68-23O80:30:00 Images from the original note were not [...] Vasoactive Intestinal Peptide (call lab for tube)ARUP 31777-1Uxefa ToykDD2880-26-79C94:36:26Nurse NoteTXT1.2.840.996136.1.13.104.2.7.2.727 879|[id number] for patient tgxa79827-1Rtird GrogLX466643159Mpfmzaj Noa [address] FvgnNkfftjkxqYreyujxdvOGRF7716487459YPML NAPQBCUBKOMEKWRZYW8199-45-24W02:36:261.2 .840.683010.1.72.3.15|1.2.840.555003.1.1 3.104.2.7.2.727879_[id number] Samantha Rosales [facility] 2022-10-05 10:15:00 8994-68-35K52:15:00 Images from the original note were not [...] DK BLUE (S) ACD Blood Culture NIPT/NTD 34928-1Huthg EsdbHQ2264-79-40V20:17:14Nurse NoteTXT1.2.840.701100.1.13.104.2.7.2.727 879|[id number] for patient tsjs26214-4Wrzjd NoteLNUT[address] NdktHvxrftodjAvwqbuwlrHPHT5666399532ZHGV LQIIODPZJRJLLGJSGL1519-99-69C01:17:141.2 .840.652524.1.72.3.15|1.2.840.397874.1.1 3.104.2.7.2.727879_[id number] [facility] 2018-07-20 06:55:00 IMnlconacsh95387273BSPAWPGcfMT/aFgSHvrgF xNWV3budl8QHMpfKHnkCauv0GQlZ4ZkJbgKh6prB NT32912-78-15N01:55:723097-7795 [place] [address] PATIENT NAME: SHIVANI SCHULER ADMIT DATE: 07/20/18ACCOUNT NO: [id number] ROOM NO: AGE: 43 REPORT TYPE: CARDIAC CATHETERIZATION REPORT SEX: F ADMITTING PHYSICIAN: ATTENDING PHYSICIAN:Thea Harper MD PROCEDURE DATE: 07/20/2018 RECORDS MANAGEMENT COORDINATOR: Thea Harper MD TITLE OF THE PROCEDURE: [...] common femoral artery area for localanesthesia. A 6-[place] sheath was placed in the right common [...] no complications. [facility] be discharged later on today on medical therapy PATIENT NAME: SHIVANI SCHULER and risk factor modification. Dictated By: Thea Harper MD WT: CATH:ADRIANA/KIAN/RIGOBERTODD: 07/20/2018 06:55:03DT: 07/20/2018 07:17:37Conf#: [id number]/DID#: [id number] Authenticated by Thea Harper MD On 07/20/2018 08:15:22 AM at 0815 PATIENT NAME: SHIVANI SCHULER Jcjn6349-80-14I57:17:00Z.QOC50373454-293 6AVAvailable for patient xmxxICMVEUHIPXVUJL1100-74-93W23:15:56 [facility] 2018-07-20 06:06:00 VEbwmawlszm61157972vDydQE91kOtkuO7uvEpA6 AFnqy3NC0ZHxdyKfFYOqXDNLVx+ani+VhrGhKr5C LWW8522-43-78H90:06:032111-2112 [place] [address] PATIENT NAME: SHIVANI SCHULER ADMIT DATE: 07/20/18ACCOUNT NO: [id number] ROOM NO: AGE: 43 REPORT TYPE: ELECTROCARDIOGRAM SEX: F ADMITTING PHYSICIAN: ATTENDING PHYSICIAN:Thea Harper MD Order:[id number] Reason : CAD Test Date/Time Stamp:SunJul 20 [...] HARPER at 0921 PATIENT NAME: SHIVANI SCHULER .[id number] for patient [id number] [facility] 2018-07-19 18:55:00 [id number] [place] [address] PATIENT NAME: SHIVANI SCHULER ADMIT DATE: 07/20/18ACCOUNT NO: [id number] ROOM NO: AGE: 43 REPORT TYPE: HISTORY AND PHYSICAL SEX: F ADMITTING PHYSICIAN: ATTENDING PHYSICIAN:Thea Harper MD ADMISSION DATE: 07/20/2018 RECORDS MANAGEMENT COORDINATOR: Thea Harper MD REASON FOR ADMISSION: Chest [...] patient. Dictated By: Thea Harper MD WT: HP:Z.CATRACHO/KIAN/NTSDD: 07/19/2018 18:55:38DT: 07/19/2018 19:52:26Conf#: [id number]/DID#: [id number] by Thea Harper MD On 07/25/2018 07:20:46 AM at 0721 PATIENT NAME: SHIVANI SCHULER and physical [id number] for patient [id number] [facility]
--- NOTE | 2023-08-14 11:52 | RAD REPORT ---
EXAM DESCRIPTION: RAD - Abdomen W Erect - 08/14/2023 11:43 am CLINICAL HISTORY: CONSTIPATION COMPARISON: No comparisons FINDINGS: Nonobstructive bowel gas pattern. No acute osseous abnormality.Visualized lungs are unrema rkable.No abnormal calcifications. Cholecystectomy. Moderate stool in the ascending colon. Mild stool in the descending colon. IMPRESSION: Nonobstructive bowel gas pattern. Overall, formed stool burden is low.
--- NOTE | 2023-08-14 12:50 | EDPHYS ---
Physician Documentation [facility] Name: Shivani Lagunas Age: 48 yrs Sex: Female : 1975 Arrival Date: 08/14/2023 Time: 10:47 Bed DX4 Private MD: ED Physician Tony Miranda HPI: 08/13 12:46 This 48 yrs old Female presents to ER via Ambulatory with complaints of ec2 Constipation, Abdominal Pain. 12:46 Patient arrives today for evaluation of constipation. States that she has not had a ec2 normal bowel movement in approximately 2 weeks. States she is taking MiraLAX and Dulcolax without success of a bowel movement. Patient reports that she is having significant straining. Reports no vomiting. Reports she is tolerating p.o. without issue.. 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 - Infectious Disease History:: Denies. - Social history:: Smoking status: Patient reports the use of cigarette tobacco products, Patient reports use of chewing tobacco. Patient denies any tobacco usage or history of. ROS: 12:46 Constitutional: as per hpi ec2 Exam: 12:46 Constitutional: GEN: NAD Head: atraumatic Eyes: EOMI Ears: External ears are ec2 normal. CV: regular rate LUNGS: no respiratory distress ABD: non-distended SKIN: no evidence of rashes MSK: no evidence of trauma NEURO: moves all extremities equally Vital Signs: 11:16 BP 153 / 72; Pulse 83; Resp 18; Temp 99; Pulse Ox 100% ; Weight 102.06 kg; Height 5 ft. ap3 6 in. ; Pain 7/10; 11:16 Body Mass Index 36.32 (102.06 kg, 167.64 cm) ap3 11:16 Pain Scale: Adult ap3 MDM: 11:40 Patient medically screened. ec2 12:46 Data reviewed: vital signs. ED course: Patient arrives today for evaluation of ec2 constipation. Examination remarkable for well-appearing nontoxic individual is otherwise in no acute distress with a reassuring examination. Abdominal x-ray independently reviewed and interpreted by me, shows no evidence of significant obstruction, no air-fluid levels. 12:47 ED course: Will start the patient on constipation medications have the patient ec2 follow-up with GI. Return precautions given. I considered other process such as small bowel obstruction, ileus, intra-abdominal infection. Ultimately patient is well-appearing with reassuring hemodynamics, can follow-up outpatient or return if symptoms progress or worsen or do not resolve. 08/13 11:27 Order name: Abdomen with Erect XRAY; Complete Time: 12:35 ec2 Administered Medications: 13:02 Drug: Milk of Magnesia PO Suspension 400 mg/5 mL 30 ml PO once Route: PO; ap3 13:03 Follow up: Response: Medication administered at discharge. ap3 Disposition Summary: 08/14/23 12:49 Discharge Ordered Notes: Location: Home ec2 Condition: Stable ec2 Diagnosis - Constipation, unspecified ec2 Followup: ec2 - With: Uriel Payne MD - When: - Reason: Recheck today's complaints Discharge Instructions: - Discharge Summary Sheet ec2 - Constipation, Adult ec2 Forms: - Medication Reconciliation Form ec2 - Antibiotic Education ec2 - Prescription Opioid Use ec2 - Patient Portal Instructions ec2 - Leadership Thank You Letter ec2 Prescriptions: - Lactulose 10 gram/15 mL Oral Solution - take 30 milliliters ORAL route once daily; 300 milliliter; Refills: 0, Product ec2 Selection Permitted Signatures: Dispatcher [employer] Emma Dey RN RN ap3 Tony Miranda MD MD ec2 Corrections: (The following items were deleted from the chart) 11:27 11:27 Abdomen With Erect+RAD.RAD.BRZ ordered. EDMS EDMS
--- NOTE | 2023-08-14 12:50 | ER ---
Nurse's Notes [facility] Name: Shivani Lagunas Age: 48 yrs Sex: Female : 1975 Arrival Date: 08/14/2023 Time: 10:47 Bed DX4 Private MD: Diagnosis: Constipation, unspecified Presentation: 08/13 11:16 Chief complaint: Patient states: ABDOMINAL PAIN AND CONSTIPATION X 2 WEEKS. STATES ap3 TRIED OTC MEDICATIONS AND THEY ARE NOT GIVING RELIEF. Coronavirus screen: Client denies travel out of the [place] in the last 14 days. At this time, the client does not indicate any symptoms associated with coronavirus-19. Ebola Screen: Patient negative for fever greater than or equal to 101.5 degrees Fahrenheit, and additional compatible Ebola Virus Disease symptoms Patient denies exposure to infectious person. Patient denies travel to an Ebola-affected area in the 21 days before illness onset. No symptoms or risks identified at this time. Initial Sepsis Screen: Does the patient meet any 2 criteria? No. Patient's initial sepsis screen is negative. Does the patient have a suspected source of infection? No. Patient's initial sepsis screen is negative. Risk Assessment: Do you want to hurt yourself or someone else? Patient reports no desire to harm self or others. Onset of symptoms was July 31, 2023. 11:16 Method Of Arrival: Ambulatory ap3 11:16 Acuity: ALICIA 3 ap3 Triage Assessment: 11:18 General: Appears in no apparent distress. comfortable, Behavior is calm, cooperative. ap3 Pain: Complains of pain in back and abdomen. Neuro: Level of Consciousness is awake, alert, obeys commands, Oriented to person, place, time, situation. Cardiovascular: No deficits noted. Respiratory: Airway is patent Respiratory effort is even, unlabored, Respiratory pattern is regular, symmetrical. GI: Abdomen is distended. 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 - Infectious Disease History:: Denies. - Social history:: Smoking status: Patient reports the use of cigarette tobacco products, Patient reports use of chewing tobacco. Patient denies any tobacco usage or history of. Screenin:04 [facility] ED Fall Risk Assessment (Adult) History of falling in the last 3 months, ap3 including since admission No falls in past 3 months (0 pts) Confusion or Disorientation No (0 pts) Intoxicated or Sedated No (0 pts) Impaired Gait No (0 pts) Mobility Assist Device Used No (0 pt) Altered Elimination No (0 pt) Score/Fall Risk Level 0 - 2 = Low Risk Oriented to surroundings, Maintained a safe environment, Educated pt \T\ family on fall prevention, incl call for assistance when getting out of bed, Assessed \T\ reinforced patient's understanding of fall precautions, Provided non-skid footwear, Hourly rounding (assess needs \T\ fall precautionary measures) done, Used ambulatory aids as needed (educated on \T\ assisted with), Used gait belt as appropriate. Abuse screen: Denies threats or abuse. Nutritional screening: No deficits noted. Tuberculosis screening: No symptoms or risk factors identified. Assessment: 13:04 GI: ap3 13:05 GI: ap3 Vital Signs: 11:16 BP 153 / 72; Pulse 83; Resp 18; Temp 99; Pulse Ox 100% ; Weight 102.06 kg; Height 5 ft. ap3 6 in. ; Pain 7/10; 11:16 Body Mass Index 36.32 (102.06 kg, 167.64 cm) ap3 11:16 Pain Scale: Adult ap3 ED Course: 10:50 Patient arrived in ED. im 11:18 Triage completed. ap3 11:19 Arm band placed on right wrist. ap3 11:26 Tony Miranda MD is Attending Physician. ec2 11:44 Abdomen with Erect XRAY In Process Unspecified. EDMS 12:49 Uriel Payne MD is Referral Physician. ec2 13:04 Patient has correct armband on for positive identification. Provided Education on: ap3 discharge instructions. 13:04 No provider procedures requiring assistance completed. Patient did not have IV access ap3 during this emergency room visit. Administered Medications: 13:02 Drug: Milk of Magnesia PO Suspension 400 mg/5 mL 30 ml PO once Route: PO; ap3 13:03 Follow up: Response: Medication administered at discharge. ap3 Medication: 13:05 VIS not applicable for this client. ap3 Outcome: 12:49 Discharge ordered by . ec2 13:04 Discharged to home ambulatory, ap3 13:04 Condition: good 13:04 Discharge instructions given to patient, Instructed on discharge instructions, follow up and referral plans. Demonstrated understanding of instructions, follow-up care, medications, Prescriptions given X 1, 13:05 Patient left the ED. ap3 Signatures: Dispatcher [employer] Emma Dey RN RN ap3 Rohini Garcia Edwin, MD MD ec2 Corrections: (The following items were deleted from the chart) 11:18 11:16 Onset of symptoms was August 14, 2023 ap3 ap3
[2023-08-14] MEDS ORDERED: MAGNESIUM HYDROXIDE 8% 30 ML ONE (13:00)
[2023-08-14 13:41] VITALS: BP 153/72; TEMP 99; O2SAT 100
== END 2023-08-14 13:05 | disposition home or self-care (01) ==
LOC: ER 10:47
DX: K59.00 Constipation, unspecified (principal); Z72.0 Tobacco use; Z88.2 Allergy status to sulfonamides
CPT/HCPCS: 74019

== ENCOUNTER 2023-09-12 11:44 | Emergency (ER) | payer OTHER ==
--- OUTSIDE RECORDS SUMMARY | 2023-09-12 11:59 | XMS REPORT | Continuity of Care Document ---
Author Name Unknown Address [address] [facility] [address] [place] [address] [facility] thconnect Address [address] [facility] 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 Role Phone Jae Holloway Primary Care Physician Unavailab ALESHA Rosa Attending Clinician Unavailable Elidia Cordero MD Attending Clinician [phone] Dominic Keita MD Attending Clinician [phone] Jose Westbrook MD Attending Clinician [phone] JOSE WESTBROOK Attending Clinician Unavailable FARZANA SAUCEDA Attending Clinician Unavailable MARYSOL PABON Attending Clinician Unavailable MARYSOL PABON Attending Clinician Unavailable Marysol Pabon DO Attending Clinician [phone] Rhiannon Vizcarra MD Attending Clinician [phone] DAVIDSON SUTHERLAND Attending Clinician Unavailable EMILIA SNOWDEN Attending Clinician Annia vailable Doctor Unassigned, [place] Attending Clinician U SARA Day Attending Clinician UnavailSARA Dorado Attending Clinician UnavailJewel Forbes MD Attending Clinician [phone] [facility] Attending Clinician Unavailable JEWEL CUNHA Attending Clinician Unavaila JENNY Norton Attending Clinician Unavailable JENNY ARRIAGA Attending Clinician Unavailable Dexter Dias MD Attending Clinician [phone] Davidson Sutherland MD Attending Clinician + P[facility]-Lab Attending Clinician Unavailable DEXTER DIAS Attending Clinician Unavailable GC_GCBZW_Kadiyala_S Attending Clinician Unavaila ONEIDA Del Rosario Attending Clinician Unavailable DOMINIC KEITA Attending Clinician Unavailabl Hunter العراقي MD Attending Clinician + [phone] Ting Grissom MD Attending Clinician [phone] RADIOLOGY Attending Clinician Unavailable DORA NEWMAN Attending Clinician Unavailable Dora Newman NP Attending Clinician [phone] Kath Vences MD Attending Clinician + [phone] P[facility] Attending Clinician UnavailKATH Grady Attending Clinician Unavailchris russell Pathology Attending Clinician Unavailable IGOR SAAVEDRA Attending Clinician Unavaila HILARY Ramires Attending Clinician Unavaila HILARY Ramires Attending Clinician Unavaila Igor mcconnell Rai, MD Attending Clinician Unava ilGIGI Juarez Attending Clinician Unavailable Gigi Monroy DO Attending Clinician [phone] Zane Martinez MD Attending Clinician [phone] Deonte Aviles Attending Clinician Unavailable UNKNOWN, ATTENDING Attending Clinician Unavailab SALLY Cash Attending Clinician Unavail able SALLY MITCHELL Attending Clinician Unavail able Salbador Lockwood MD Attending Clinician + SALBADOR LOCKWOOD Attending Clinician Unavailable HALIMA CONNOR Attending Clinician Unavailab Halima Choi DO Attending Clinician [phone] ROBERT NOWAK Attending Clinician Unavail able Milton MELGOZA, Patti Attending Clinician [phone] CRISTO MARTINEZ Attending Clinician Unavail able JEWEL MORAES Attending Clinician UnaKATH Sen Attending Clinician Unav ANGELA Richardson Attending Clinician Unavailab RHIANNON Durant Admitting Clinician Unavailable GC_GCBZW_Kadiyala_S Admitting Clinician UnavailDOMINIC Peres Admitting Clinician UnavailDominic Bello MD Admitting Clinician Payers Payer Name Policy Type Policy Number Effective Date Expirati on Date Source [employer] [id number] 2022 00:00:00 MEDICAID SSI PENDING PENDING 2021 [...] Date Quantity Comments [facility] of Social function 2023-09-03 00:00:00 2023-09-03 00:00:00 [facility] Exposure to SARS-CoV-2 (event) 2022-02-05 00:00:00 2022-02-15 08:57:00 Not sure [facility] Tobacco use and exposure 2021-08-24 00:00:00 2021-08-24 00:00:00 Smokeless tobacco non-user [facility] Sex assigned at 1975 00:00:00 1975 00:00:00 [facility] Smoking Status Start Date Stop Date Source Never smoked tobacco [facility] Medications Ordered Medication Name Filled Medication Name Start Date Stop Date Current Medication? Ordering Clinician Indication Dosage Frequency Signature (SIG) Comments Components Source busPIRone 30 mg tablet 09-02 00:00: 00 Yes [id number] 30mg Take 1 tablet by mouth in the morning and 1 tablet in the evening. [facility] clonazePAM (KLONOPIN) 1 mg tablet 09-02 00:00: 00 Yes [id number] 1mg Take 1 tablet by mouth once daily as needed for Other (severe anxiety). Take 0.5mg to 1mg as needed for severe anxiety [facility] DULoxetine 60 mg capsule 09-02 00:00: 00 Yes [id number] 60mg Take 1 capsule by mouth in the morning and 1 capsule in the evening. Follow up for refills [facility] lamoTRIgine 100 mg tablet 09-02 00:00: 00 Yes [id number] 100mg Take 1 tablet by mouth in the morning and 1 tablet in the evening. Let your Dr know if you have missed 4 or more days of this medication , we will need to start at a lower dose [facility] traZODone 50 mg tablet 08-27 00:00: 00 Yes [id number] 50mg Take 1 tablet by mouth at bedtime. May cut tablet in half. Follow up for refills [facility] busPIRone 10 mg tablet 08-27 00:00: 00 09-02 00:00 :00 No [id number] 20mg Take 2 tablets by mouth in the morning and 2 tablets in the evening. Follow up for refills [facility] ferric derisomalto se (MONOFERRIC ) 100 mg iron/mL Soln 08-07 00:00: 00 08-08 04:59 :00 No [id number] 500mg Inject 500 mg intravenou sly once now for 1 dose. [facility] clonazePAM 1 mg tablet 08-01 00:00: 00 09-02 00:00 :00 No [id number] Take half to 1 tablet by mouth once daily as needed for extreme anxiety. Attempt to minimize use. Follow-up for continued refills. [facility] lithium carbonate CR 450 mg SR tablet 07-30 00:00: 00 Yes [id number] 900mg Take 2 tablets by mouth at bedtime. [facility] omeprazole 40 mg capsule 07-25 00:00: 00 07-21 04:59 :00 Yes [id number] 40mg Take 1 capsule by mouth in the morning and 1 capsule in the evening. Take with meals. Do all this for 360 days. [facility] sucralfate 1 gram tablet 07-25 00:00: 00 10-24 04:59 :00 Yes [id number] 1g Take 1 tablet by mouth before meals and at bedtime for 90 days. [facility] traZODone 50 mg tablet 07-18 00:00: 00 08-26 00:00 :00 No [id number] 50mg Take 1 tablet by mouth at bedtime. May cut tablet in half. Follow up for refills [facility] DULoxetine 60 mg capsule 2023-0 5-10 00:00: 00 09-02 00:00 :00 No [id number] 60mg Take 1 capsule by mouth in the morning and 1 capsule in the evening. Follow up for refills [facility] busPIRone 10 mg tablet 2023- 510 00:00: 00 08-27 00:00 :00 No [id number] 20mg Take 2 tablets by mouth in the morning and 2 tablets in the evening. Follow up for refills [facility] traZODone 50 mg tablet 06-21 00:00: 00 07-18 00:00 :00 No [id number] 50mg Take 1 tablet by mouth at bedtime. May cut tablet in half. Follow up for refills [facility] clonazePAM 1 mg tablet 06-12 00:00: 00 07-30 00:00 :00 No [id number] Take half to 1 tablet by mouth once daily as needed for extreme anxiety. Attempt to minimize use. Follow-up for continued refills. [facility] iopamidol (ISOVUE 370-500 mL) injection 80 mL 06-07 02:57: 00 06-07 02:45 :00 No [id number] 80mL 80 mL, Intravenou s, ONCE, 1 dose, On Sun06/07/23 at 2200, Routine [facility] NaCl 0.9% (NS) injection 5 mL 06-07 02:36: 00 Yes 5mL 5 mL, Slow IV Push, PRN - SEE INSTRUCTIO NS, Starting on Sun06/07/23 at 2136, Until Discontinu ed, 10 mL [facility] traZODone 50 mg tablet 2023-0 10 00:00: 00 06-21 00:00 :00 No [id number] 50mg Take 1 tablet by mouth at bedtime. May cut tablet in half. [facility] DULoxetine 60 mg capsule 2023-0 4-10 00:00: 00 06-21 00:00 :00 No [id number] 60mg Take 1 capsule by mouth in the morning and 1 capsule in the evening. [facility] busPIRone 10 mg tablet 3-26 00:00: 00 06-21 00:00 :00 No [id number] 20mg Take 2 tablets by mouth in the morning and 2 tablets in the evening. [facility] traZODone 50 mg tablet 13 00:00: 00 05-22 00:00 :00 No [id number] 50mg Take 1 tablet by mouth at bedtime. May cut tablet in half. [facility] DULoxetine 60 mg capsule 3 00:00: 00 05-22 00:00 :00 No [id number] 60mg Take 1 capsule by mouth in the morning and 1 capsule in the evening. [facility] DULoxetine 60 mg capsule 1-24 00:00: 00 04-23 00:00 :00 No [id number] 60mg Take 1 capsule by mouth in [...] lamoTRIgine 100 mg tablet 2022-02 00:00: 00 09-02 00:00 :00 No [id number] 100mg Take 1 tablet by mouth in the morning and 1 tablet in the evening. [facility] lithium carbonate CR 450 mg SR tablet 2022-02 00:00: 00 07-29 00:00 :00 No [id number] 900mg Take 2 tablets by mouth at bedtime. [facility] clonazePAM 1 mg tablet 2022-02 00:00: 00 06-11 00:00 :00 No [id number] Take half to 1 tablet by mouth once daily as needed for extreme anxiety. Attempt to minimize use. [facility] busPIRone 10 mg tablet 2022-02 00:00: 00 05-07 00:00 :00 No [id number] 20mg Take 2 tablets by mouth in the morning and 2 tablets in the evening. [facility] traZODone 50 mg tablet 2022-02 00:00: 00 04-22 00:00 :00 No [id number] 50mg Take 1 tablet by mouth at bedtime. May cut tablet in half. [facility] DULoxetine 60 mg capsule 2022-02 00:00: 00 03-07 00:00 :00 No [id number] 60mg Take 1 capsule by mouth in the morning and 1 capsule in the evening. [facility] busPIRone 15 mg tablet 2022-02 00:00: 00 01-22 00:00 :00 No [id number] 15mg Take 1 tablet by mouth in the morning and 1 tablet in the evening. [facility] lithium carbonate CR 450 mg SR tablet 2022-02 00:00: 00 01-22 00:00 :00 No [id number] 900mg Take 2 tablets by mouth at bedtime. [facility] traZODone 50 mg tablet 2022-02 00:00: 00 01-22 00:00 :00 No [id number] 50mg Take 1 tablet by mouth at bedtime. May cut tablet in half. [facility] DULoxetine 60 mg capsule 2022-02 00:00: 00 01-22 00:00 :00 No [id number] 60mg Take 1 capsule by mouth in the morning and 1 capsule in the evening. [facility] lamoTRIgine 100 mg tablet 2022-02 00:00: 00 01-22 00:00 :00 No [id number] 100mg Take 1 tablet by mouth in the morning and 1 tablet in the evening. [facility] clonazePAM 1 mg tablet 2022-02 00:00: 01-22 00:00 :00 No [id number] Take 1 tablet by mouth once daily as needed for extreme anxiety. Attempt to minimize use. [facility] busPIRone 15 mg tablet 2022-02 00:00: 12-20 00:00 :00 No [id number] 15mg Take 1 tablet by mouth in the morning and 1 tablet in the evening. [facility] lithium carbonate CR 450 mg SR tablet 2022-02 00:00: 00 12-20 00:00 :00 No [id number] 900mg Take 2 tablets by mouth at bedtime. [facility] traZODone 50 mg tablet 2022-02 00:00: 12-20 00:00 :00 No [id number] 50mg Take 1 tablet by mouth at bedtime. May cut tablet in half. [facility] DULoxetine 60 mg capsule 2022-02 00:00: 12-20 00:00 :00 No [id number] 60mg Take 1 capsule by mouth in [...] ONCE, 1 dose, [facility]03/22 [facility] 1145[facility]- acetaminoph en-caff (ESGIC) 50-325-40 [...] ONCE, 1 dose, [facility] Sun11/03/22 at 1100[facility] diphenhydrA MINE (BENADRYL) injection 25 [...] 50-325-40 mg tablet 11-03 00:00: 00 Yes [id number] 1{tbl} Take 1 tablet by mouth every 6 (six) hours as needed for Pain (scale 7-10) or Pain (scale 4-6) for up to 12 doses. [facility] peg-electro lyte soln 236-22.74-6 .74 -5.86 gram solution 10-19 00:00: 00 11-03 00:00 :00 No [id number] Take as directed before colonoscop y [facility] busPIRone 15 mg tablet 10-04 00:00: 00 12-13 00:00 :00 No [id number] 15mg Take 1 tablet by mouth in the morning and 1 tablet in the evening. [facility] clonazePAM 1 mg tablet 09-28 00:00: 00 12-20 00:00 :00 No [id number] Take 1 tablet by mouth twice daily as needed for anxiety. [facility] DULoxetine 60 mg capsule 09-26 00:00: 00 11-22 00:00 :00 No [id number] 60mg Take 1 capsule by mouth in the morning and 1 capsule in the evening. [facility] lamoTRIgine 100 mg tablet 09-13 00:00: 00 12-20 00:00 :00 No [id number] 100mg Take 1 tablet by mouth in the morning and 1 tablet in the evening. [facility] lithium carbonate CR 450 mg SR tablet 09-13 00:00: 00 11-28 00:00 :00 No [id number] 900mg Take 2 tablets by mouth at bedtime. [facility] busPIRone 10 mg tablet 09-13 00:00: 00 10-04 00:00 :00 No [id number] 10mg Take 1 tablet by mouth in the morning and 1 tablet in the evening. [facility] clonazePAM 1 mg tablet 08-30 00:00: 00 09-25 00:00 :00 No [id number] Take 1 tablet by mouth twice daily as needed for anxiety. [facility] FUROSEMIDE ORAL 07-26 09:33: 26 07-26 00:00 :00 No 40mg Take 40 mg by mouth daily. [facility] traZODone 50 mg tablet 07-26 00:00: 00 11-28 00:00 :00 No [id number] 50mg Take 1 tablet by mouth at bedtime. May cut tablet in half. [facility] DULoxetine 60 mg capsule 07-26 00:00: 00 09-25 00:00 :00 No [id number] 60mg Take 1 capsule by mouth in the morning and 1 capsule in the evening. [facility] lamoTRIgine 100 mg tablet 07-26 00:00: 00 09-13 00:00 :00 No [id number] 100mg Take 1 tablet by mouth in the morning and 1 tablet in the evening. [facility] lithium carbonate CR 450 mg SR tablet 07-26 00:00: 00 09-13 00:00 :00 No [id number] 900mg Take 2 tablets by mouth at bedtime. [facility] busPIRone 10 mg tablet 07-26 00:00: 00 09-13 00:00 :00 No [id number] 10mg Take 1 tablet by mouth in the morning and 1 tablet in the evening. [facility] lamoTRIgine 100 mg tablet 07-19 00:00: 00 07-26 00:00 :00 No [id number] 100mg Take 1 tablet by mouth in the morning and 1 tablet in the evening. [facility] clonazePAM 1 mg tablet 24 00:00: 00 08-29 00:00 :00 No [id number] Take 1 tablet by mouth twice daily as needed for anxiety. [facility] DULoxetine 60 mg capsule 09 00:00: 00 07-26 00:00 :00 No [id number] 60mg Take 1 capsule by mouth in the morning and 1 capsule in the evening. [facility] lithium carbonate CR 450 mg SR tablet 2022-0 5-09 00:00: 00 07-26 00:00 :00 No [id number] 900mg Take 2 tablets by mouth at bedtime. [facility] traZODone 50 mg tablet 2022-0 3-09 00:00: 00 07-26 00:00 :00 No [id number] 50mg Take 1 tablet by mouth at bedtime. May cut tablet in half. [facility] lamoTRIgine 100 mg tablet 2022-0 3-09 00:00: 00 07-19 00:00 :00 No [id number] 100mg Take 1 tablet by mouth in the morning and 1 tablet in the evening. [facility] clonazePAM 1 mg tablet 3-09 00:00: 00 07-05 00:00 :00 No [id number] Take 1 tablet by mouth twice daily as needed for anxiety. [facility] DULoxetine 60 mg capsule 2022-0 3-09 00:00: 00 06-17 00:00 :00 No [id number] 60mg Take 1 capsule by mouth in the morning and 1 capsule in the evening. [facility] lithium carbonate CR 450 mg SR tablet 3-09 00:00: 00 06-17 00:00 :00 No [id number] 900mg Take 2 tablets by mouth at bedtime. [facility] lamoTRIgine 100 mg tablet 0 1-26 00:00: 00 04-20 00:00 :00 No [id number] 100mg Take 1 tablet by mouth in the morning and 1 tablet in the evening. [facility] traZODone 50 mg tablet 2022-0 1-04 00:00: 00 04-20 00:00 :00 No [id number] 50mg Take 1 tablet by mouth at bedtime. May cut tablet in half. [facility] lithium carbonate CR 450 mg SR tablet 2022-0 1-04 00:00: 00 04-20 00:00 :00 No [id number] 900mg Take 2 tablets by mouth at bedtime. [facility] DULoxetine 60 mg capsule 02-15 00:00: 00 04-19 00:00 :00 No [id number] 60mg Take 1 capsule by mouth in the morning and 1 capsule in the evening. [facility] clonazePAM 1 mg tablet 02-15 00:00: 00 04-19 00:00 :00 No [id number] Take 1 tablet by mouth twice daily as needed for anxiety. [facility] lamoTRIgine 100 mg tablet 02-15 00:00: 00 03-09 00:00 :00 No [id number] 100mg Take 1 tablet by mouth in the morning and 1 tablet in the evening. [facility] lithium 600 mg capsule 02-15 00:00: 00 02-15 00:00 :00 No [id number] 600mg Take 1 capsule by mouth in the morning and 1 capsule in the evening. [facility] DULoxetine 60 mg capsule 2021-02 00:00: 00 02-15 00:00 :00 No [id number] 60mg Take 1 capsule by mouth in the morning and 1 capsule in the evening. [facility] lamoTRIgine 100 mg tablet 2021-02 00:00: 00 02-15 00:00 :00 No [id number] 100mg Take 1 tablet by mouth in the morning and 1 tablet in the evening. [facility] traZODone 50 mg tablet 2021-02 00:00: 00 02-15 00:00 :00 No [id number] 50mg Take 1 tablet by mouth at bedtime. May cut tablet in half. [facility] lamoTRIgine 100 mg tablet 2021-02 00:00: 00 02-02 00:00 :00 No [id number] 100mg Take 1 tablet by mouth in the morning and 1 tablet in the evening. [facility] clonazePAM 1 mg tablet 2021-02 00:00: 00 02-15 00:00 :00 No [id number] Take 1 tablet by mouth twice daily as needed for anxiety. [facility] DULoxetine 60 mg capsule 2021-02 1-28 00:00: 00 02-07 00:00 :00 No [id number] 60mg Take 1 capsule by mouth in the morning and 1 capsule in the evening. [facility] traZODone 50 mg tablet 2021-02 1- 00:00: 00 01-11 00:00 :00 No [id number] 50mg Take 1 tablet by mouth at bedtime. May cut tablet in half. [facility] DULoxetine 60 mg capsule 2021-02 0-25 00:00: 00 01-09 00:00 :00 No [id number] 60mg Take 1 capsule by mouth in the morning and 1 capsule in the evening. [facility] lithium 600 mg capsule 2021-02 0-20 00:00: 00 02-15 00:00 :00 No [id number] 600mg Take 1 capsule by mouth in the morning and 1 capsule in the evening. [facility] lamoTRIgine 25 mg tablet 2021-02 0-20 00:00: 00 01-11 00:00 :00 No [id number] 50mg Take 2 tablets by mouth in the morning and 2 tablets in the evening. [facility] clonazePAM 1 mg tablet 2021-02 0-20 00:00: 00 01-09 00:00 :00 No [id number] Take 1 tablet by mouth twice daily as needed for anxiety. [facility] lamoTRIgine 25 mg tablet 2021-0 8-26 00:00: 00 11-30 00:00 :00 No [id number] 50mg Take 2 tablets by mouth in the morning and 2 tablets in the evening. [facility] clonazePAM 1 mg tablet 2021-0 8-25 00:00: 00 11-30 00:00 :00 No [id number] Take no more than 1 mg twice daily as needed for anxiety [facility] lithium 600 mg capsule 2021-0 8-25 00:00: 00 11-30 00:00 :00 No [id number] 600mg Take 1 capsule by mouth in the morning and 1 capsule in the evening. [facility] Lamotrigine 50 mg tablet 8-25 00:00: 00 10-07 00:00 :00 No [id number] 50mg Take 1 tablet by mouth in the morning and 1 tablet in the evening. [facility] Lamotrigine 50 mg tablet 8-11 00:00: 00 10-06 00:00 :00 No [id number] 50mg Take 1 tablet by mouth in the morning and 1 tablet in the evening. [facility] DULoxetine 60 mg capsule 7-27 00:00: 00 12-05 00:00 :00 No [id number] 60mg Take 1 capsule by mouth in the morning and 1 capsule in the evening. [facility] Lamotrigine 50 mg tablet 7-18 00:00: 00 09-22 00:00 :00 No [id number] 50mg Take 1 tablet by mouth in the morning and 1 tablet in the evening. [facility] lithium 600 mg capsule 0 7-13 00:00: 00 10-06 00:00 :00 No [id number] 600mg Take 1 capsule by mouth in the morning and 1 capsule in the evening. [facility] DULoxetine 60 mg capsule 628 00:00: 00 Yes [id number] 60mg Take 1 capsule by mouth 2 (two) times daily. [facility] traZODone 50 mg tablet 0 6-28 00:00: 00 01-02 00:00 :00 No [id number] 50mg Take 1 tablet by mouth at bedtime. May cut tablet in half. [facility] clonazePAM 1 mg tablet 0 6-28 00:00: 00 10-06 00:00 :00 No [id number] Take no more than 1 mg twice daily as needed for anxiety [facility] DULoxetine 60 mg capsule 2021-0 4-14 00:00: 00 08-09 00:00 :00 No [id number] 60mg Take 1 capsule by mouth 2 (two) times daily. [facility] traZODone 50 mg tablet 4-14 00:00: 00 08-09 00:00 :00 No [id number] 50mg Take 1 tablet by mouth at bedtime. May cut tablet in half. [facility] vitamin B-12 1,000 mcg tablet 05-23 00:00: 00 11-03 00:00 :00 No [id number] 1000ug Take 1 tablet by mouth daily. [facility] cyanocobala min 1,000 mcg/mL injection 05-23 00:00: 00 11-03 00:00 :00 No [id number] 1000ug 1 mL by Intramuscu lar route weekly. [facility] losartan potassium (LOSARTAN ORAL) 05-17 09:24: 36 Yes 20mg Take 20 mg by mouth. [facility] FUROSEMIDE ORAL 05-17 09:24: 36 Yes 40mg Take 40 mg by mouth daily. [facility] magnesium gluconate 200 mg tablet 05-17 00:00: 00 Yes [id number] 400mg Take 2 tablets by mouth 2 (two) times daily. [facility] gabapentin 300 mg capsule 05-17 00:00: 00 11-03 00:00 :00 No [id number] 300mg Take 1 capsule by mouth 3 (three) times daily. [facility] rizatriptan 5 mg disintegrat ing tablet 05-17 00:00: 00 11-03 00:00 :00 No [id number] 5mg Take 1 tablet by mouth as needed for Migraine (Take 5mg at the beginning of the headache can repeat 2h after if headaches persists). May repeat in 2 hours if needed [facility] magnesium gluconate 200 mg tablet 05-17 00:00: 00 11-03 00:00 :00 No [id number] 400mg Take 2 tablets by mouth 2 (two) times daily. [facility] artificial tears,hypro mellose, 0.5 % ophthalmic drops 2022-0 4-05 00:00: 00 06-22 00:00 :00 No [id number] 1[drp] Place 1 Drop in left eye as needed for Dry eyes. [facility] clonazePAM 1 mg tablet 3-31 00:00: 00 08-09 00:00 :00 No [id number] Take no more than 1 mg twice daily as needed for anxiety [facility] lithium 600 mg capsule 3-30 00:00: 00 06-12 00:00 :00 No [id number] 600mg Take 1 capsule by mouth 2 (two) times daily. [facility] ondansetron (ZOFRAN ODT) 4 mg disintegrat ing tablet 09-02 00:00: 00 11-03 00:00 :00 No [id number] 4mg Take 1 tablet by mouth every 8 (eight) hours as needed for Nausea and Vomiting (N/V). [facility] butalbital- acetaminoph en-caff 50-325-40 mg tablet 09-02 00:00: 00 06-22 00:00 :00 No [id number] 1{tbl} Take 1 tablet by mouth every [...] Date Status Comments Source TDAP Unknown Completed [facility] Influenza Virus Vaccine Quad .5 mL IM 6+ MO (FLUZONE/FLULAVAL/FL UARIX) Unknown Completed [facility] SARS-COV-2 COVID-19 VACCINE - (MODERNA) Unknown Completed [facility] SARS-COV-2 COVID-19 VACCINE - (MODERNA) Unknown Completed [facility] TDAP Unknown Completed [facility] Influenza Virus Vaccine Quad .5 mL IM 6+ MO (FLUZONE/FLULAVAL/FL UARIX) Unknown Completed [facility] SARS-COV-2 COVID-19 VACCINE - (MODERNA) Unknown Completed [facility] SARS-COV-2 COVID-19 VACCINE - (MODERNA) Unknown Completed [facility] TDAP Unknown Completed [facility] Influenza Virus Vaccine Quad .5 mL IM 6+ MO (FLUZONE/FLULAVAL/FL UARIX) Unknown Completed [facility] SARS-COV-2 COVID-19 VACCINE - (MODERNA) Unknown Completed [facility] SARS-COV-2 COVID-19 VACCINE - (MODERNA) Unknown Completed [facility] TDAP Unknown Completed [facility] Influenza Virus Vaccine Quad .5 mL IM 6+ MO (FLUZONE/FLULAVAL/FL UARIX) Unknown Completed [facility] SARS-COV-2 COVID-19 VACCINE - (MODERNA) Unknown Completed [facility] SARS-COV-2 COVID-19 VACCINE - (MODERNA) Unknown Completed [facility] TDAP Unknown Completed [facility] Influenza Virus Vaccine Quad .5 mL IM 6+ MO (FLUZONE/FLULAVAL/FL UARIX) Unknown Completed [facility] SARS-COV-2 COVID-19 VACCINE - (MODERNA) Unknown Completed [facility] SARS-COV-2 COVID-19 VACCINE - (MODERNA) Unknown Completed [facility] TDAP Unknown Completed [facility] Influenza Virus Vaccine Quad .5 mL IM 6+ MO (FLUZONE/FLULAVAL/FL UARIX) Unknown Completed [facility] SARS-COV-2 COVID-19 VACCINE - (MODERNA) Unknown Completed [facility] SARS-COV-2 COVID-19 VACCINE - (MODERNA) Unknown Completed [facility] TDAP Unknown Completed [facility] Influenza Virus Vaccine Quad .5 mL IM 6+ MO (FLUZONE/FLULAVAL/FL UARIX) Unknown Completed [facility] SARS-COV-2 COVID-19 VACCINE - (MODERNA) Unknown Completed [facility] SARS-COV-2 COVID-19 VACCINE - (MODERNA) [facility] Influenza Virus Vaccine Quad .5 mL IM 6+ MO (FLUZONE/FLULAVAL/FL UARIX) Unknown Completed [facility] SARS-COV-2 COVID-19 VACCINE - (MODERNA) Unknown [facility] COVID-19 VACCINE - (MODERNA) Unknown [facility] Unknown Completed [facility] Influenza Virus Vaccine Quad .5 mL IM 6+ MO (FLUZONE/FLULAVAL/FL UARIX) Unknown Completed [facility] SARS-COV-2 COVID-19 VACCINE - (MODERNA) Unknown Completed [facility] SARS-COV-2 COVID-19 VACCINE - (MODERNA) Unknown [facility] Unknown Completed [facility] Influenza Virus Vaccine Quad .5 mL IM 6+ MO (FLUZONE/FLULAVAL/FL UARIX) Unknown Completed [facility] SARS-COV-2 COVID-19 VACCINE - (MODERNA) Unknown Completed [facility] SARS-COV-2 COVID-19 VACCINE - (MODERNA) Unknown Completed [facility] TDAP Unknown Completed [facility] Influenza Virus Vaccine Quad .5 mL IM 6+ MO (FLUZONE/FLULAVAL/FL UARIX) Unknown Completed [facility] SARS-COV-2 COVID-19 VACCINE - (MODERNA) Unknown [facility] SARS-COV-2 COVID-19 VACCINE - (MODERNA) Unknown Completed [facility] Unknown Completed [facility] Influenza Virus Vaccine Quad .5 mL IM 6+ MO (FLUZONE/FLULAVAL/FL UARIX) Unknown Completed [facility] SARS-COV-2 COVID-19 VACCINE - (MODERNA) Unknown Completed [facility] SARS-COV-2 COVID-19 VACCINE - (MODERNA) Unknown [facility] Unknown Completed [facility] Influenza Virus Vaccine Quad .5 mL IM 6+ MO (FLUZONE/FLULAVAL/FL UARIX) Unknown Completed [facility] SARS-COV-2 COVID-19 VACCINE - (MODERNA) Unknown Completed [facility] SARS-COV-2 COVID-19 VACCINE - (MODERNA) Unknown Completed [facility] TDAP Unknown Completed [facility] Influenza Virus Vaccine Quad .5 mL IM 6+ MO (FLUZONE/FLULAVAL/FL UARIX) Unknown Completed [facility] SARS-COV-2 COVID-19 VACCINE - (MODERNA) Unknown Completed [facility] SARS-COV-2 COVID-19 VACCINE - (MODERNA) Unknown Completed [facility] TDAP Unknown Completed [facility] Influenza Virus Vaccine Quad .5 mL IM 6+ MO (FLUZONE/FLULAVAL/FL UARIX) Unknown Completed [facility] SARS-COV-2 COVID-19 VACCINE - (MODERNA) Unknown Completed [facility] SARS-COV-2 COVID-19 VACCINE - (MODERNA) Unknown Completed [facility] TDAP Unknown Completed [facility] Influenza Virus Vaccine Quad .5 mL IM 6+ MO (FLUZONE/FLULAVAL/FL UARIX) Unknown Completed [facility] SARS-COV-2 COVID-19 VACCINE - (MODERNA) Unknown Completed [facility] SARS-COV-2 COVID-19 VACCINE - (MODERNA) Unknown Completed [facility] TDAP Unknown Completed [facility] Influenza Virus Vaccine Quad .5 mL IM 6+ MO (FLUZONE/FLULAVAL/FL UARIX) Unknown Completed [facility] SARS-COV-2 COVID-19 VACCINE - (MODERNA) Unknown Completed [facility] SARS-COV-2 COVID-19 VACCINE - (MODERNA) Unknown Completed [facility] TDAP Unknown Completed [facility] Influenza Virus Vaccine Quad .5 mL IM 6+ MO (FLUZONE/FLULAVAL/FL UARIX) Unknown Completed [facility] SARS-COV-2 COVID-19 VACCINE - (MODERNA) Unknown Completed [facility] SARS-COV-2 COVID-19 VACCINE - (MODERNA) Unknown [facility] Unknown Completed [facility] Influenza Virus Vaccine Quad .5 mL IM 6+ MO (FLUZONE/FLULAVAL/FL UARIX) Unknown Completed [facility] SARS-COV-2 COVID-19 VACCINE - (MODERNA) Unknown Completed [facility] SARS-COV-2 COVID-19 VACCINE - (MODERNA) Unknown [facility] Unknown Completed [facility] Influenza Virus Vaccine Quad .5 mL IM 6+ MO (FLUZONE/FLULAVAL/FL UARIX) Unknown Completed [facility] SARS-COV-2 COVID-19 VACCINE - (MODERNA) Unknown Completed [facility] SARS-COV-2 COVID-19 VACCINE - (MODERNA) Unknown Completed [facility] TDAP Unknown Completed [facility] Influenza Virus Vaccine Quad .5 mL IM 6+ MO (FLUZONE/FLULAVAL/FL UARIX) Unknown Completed [facility] SARS-COV-2 COVID-19 VACCINE - (MODERNA) Unknown Completed [facility] SARS-COV-2 COVID-19 VACCINE - (MODERNA) Unknown Completed [facility] TDAP Unknown Completed [facility] Influenza Virus Vaccine Quad .5 mL IM 6+ MO (FLUZONE/FLULAVAL/FL UARIX) Unknown Completed [facility] SARS-COV-2 COVID-19 VACCINE - (MODERNA) Unknown Completed [facility] SARS-COV-2 COVID-19 VACCINE - (MODERNA) Unknown Completed [facility] TDAP Unknown Completed [facility] Influenza Virus Vaccine Quad .5 mL IM 6+ MO (FLUZONE/FLULAVAL/FL UARIX) Unknown Completed [facility] SARS-COV-2 COVID-19 VACCINE - (MODERNA) Unknown Completed [facility] SARS-COV-2 COVID-19 VACCINE - (MODERNA) Unknown [facility] Unknown Completed [facility] Influenza Virus Vaccine Quad .5 mL IM 6+ MO (FLUZONE/FLULAVAL/FL UARIX) Unknown Completed [facility] SARS-COV-2 COVID-19 VACCINE - (MODERNA) Unknown Completed [facility] SARS-COV-2 COVID-19 VACCINE - (MODERNA) Unknown Completed [facility] TDAP Unknown Completed [facility] Influenza Virus Vaccine Quad .5 mL IM 6+ MO (FLUZONE/FLULAVAL/FL UARIX) Unknown Completed [facility] SARS-COV-2 COVID-19 VACCINE - (MODERNA) Unknown Completed [facility] SARS-COV-2 COVID-19 VACCINE - (MODERNA) Unknown Completed [facility] TDAP Unknown Completed [facility] Influenza Virus Vaccine Quad .5 mL IM 6+ MO (FLUZONE/FLULAVAL/FL UARIX) Unknown Completed [facility] SARS-COV-2 COVID-19 VACCINE - (MODERNA) Unknown Completed [facility] SARS-COV-2 COVID-19 VACCINE - (MODERNA) Unknown Completed [facility] TDAP Unknown Completed [facility] Influenza Virus Vaccine Quad .5 mL IM 6+ MO (FLUZONE/FLULAVAL/FL UARIX) Unknown Completed [facility] SARS-COV-2 COVID-19 VACCINE - (MODERNA) Unknown Completed [facility] SARS-COV-2 COVID-19 VACCINE - (MODERNA) Unknown Completed [facility] TDAP Unknown Completed [facility] Influenza Virus Vaccine Quad .5 mL IM 6+ MO (FLUZONE/FLULAVAL/FL UARIX) Unknown Completed [facility] SARS-COV-2 COVID-19 VACCINE - (MODERNA) Unknown Completed [facility] SARS-COV-2 COVID-19 VACCINE - (MODERNA) Unknown Completed [facility] TDAP Unknown Completed [facility] Influenza Virus Vaccine Quad .5 mL IM 6+ MO (FLUZONE/FLULAVAL/FL UARIX) Unknown Completed [facility] SARS-COV-2 COVID-19 VACCINE - (MODERNA) Unknown Completed [facility] SARS-COV-2 COVID-19 VACCINE - (MODERNA) Unknown Completed [facility] TDAP Unknown Completed [facility] Influenza Virus Vaccine Quad .5 mL IM 6+ MO (FLUZONE/FLULAVAL/FL UARIX) Unknown Completed [facility] SARS-COV-2 COVID-19 VACCINE - (MODERNA) Unknown Completed [facility] SARS-COV-2 COVID-19 VACCINE - (MODERNA) Unknown Completed [facility] TDAP Unknown Completed [facility] Influenza Virus Vaccine Quad .5 mL IM 6+ MO (FLUZONE/FLULAVAL/FL UARIX) Unknown Completed [facility] SARS-COV-2 COVID-19 VACCINE - (MODERNA) Unknown Completed [facility] SARS-COV-2 COVID-19 VACCINE - (MODERNA) Unknown Completed [facility] TDAP Unknown Completed [facility] Influenza Virus Vaccine Quad .5 mL IM 6+ MO (FLUZONE/FLULAVAL/FL UARIX) Unknown Completed [facility] SARS-COV-2 COVID-19 VACCINE - (MODERNA) Unknown Completed [facility] SARS-COV-2 COVID-19 VACCINE - (MODERNA) Unknown Completed [facility] Vital Signs Vital Name Observation Time Observation Value Comments S ource Systolic blood pressure 2023-07-26 14:17:00 177 mm[Hg] [facility] Diastolic blood pressure 2023-07-26 14:17:00 92 mm[Hg] [facility] Heart rate 2023-07-26 14:17:00 97 /min [facility] Body temperature 2023-07-26 14:17:00 36.39 Verna [facility] Respiratory rate 2023-07-26 14:17:00 18 /min [facility] Body height 2023-07-26 14:17:00 167.6 cm [facility] Body weight 2023-07-26 14:17:00 100.472 kg [facility] BMI 2023-07-26 14:17:00 35.75 kg/m2 [facility] Oxygen saturation in Arterial blood by Pulse oximetry 2023-07-26 14:17:00 97 /min [facility] Systolic blood pressure 2023-06-08 07:00:00 112 mm[Hg] [facility] Diastolic blood pressure 2023-06-08 07:00:00 62 mm[Hg] [facility] Heart rate 2023-06-08 07:00:00 72 /min [facility] Respiratory rate 2023-06-08 07:00:00 20 /min [facility] Oxygen saturation in Arterial blood by Pulse oximetry 2023-06-08 07:00:00 97 /min [facility] Body weight 2023-06-08 02:41:00 108.863 kg [facility] BMI 2023-06-08 02:41:00 38.74 kg/m2 [facility] Body temperature 2023-06-08 02:38:00 36.67 Verna [facility] Body height 2023-06-08 02:34:00 167.6 cm [facility] Systolic blood pressure 2023-02-15 15:53:00 132 mm[Hg] [facility] Diastolic blood pressure 2023-02-15 15:53:00 73 mm[Hg] [facility] Heart rate 2023-02-15 15:53:00 74 /min [facility] Body temperature 2023-02-15 15:53:00 36.44 Verna [facility] Respiratory rate 2023-02-15 15:53:00 16 /min [facility] Body height 2023-02-15 15:53:00 167.6 cm [facility] Body weight 2023-02-15 15:53:00 100.336 kg [facility] BMI 2023-02-15 15:53:00 35.70 kg/m2 [facility] Oxygen saturation in Arterial blood by Pulse oximetry 2023-02-15 15:53:00 100 /min [facility] Systolic blood pressure 2022-11-13 14:08:00 117 mm[Hg] [facility] Diastolic blood pressure 2022-11-13 14:08:00 70 mm[Hg] [facility] Heart rate 2022-11-13 14:08:00 64 /min [facility] Respiratory rate 2022-11-13 14:08:00 12 /min [facility] Oxygen saturation in Arterial blood by Pulse oximetry 2022-11-13 14:08:00 99 /min [facility] Body temperature 2022-11-13 13:38:00 36.39 Verna [facility] Body height 2022-11-13 12:15:00 167.6 cm [facility] Body weight 2022-11-13 12:15:00 95.21 kg [facility] BMI 2022-11-13 12:15:00 33.88 kg/m2 [facility] Systolic blood pressure 2022-11-13 12:15:00 142 mm[Hg] [facility] Diastolic blood pressure 2022-11-13 12:15:00 66 mm[Hg] [facility] Heart rate 2022-11-13 12:15:00 77 /min [facility] Body temperature 2022-11-13 12:15:00 36 Verna [facility] Respiratory rate 2022-11-13 12:15:00 21 /min [facility] Body height 2022-11-13 12:15:00 167.6 cm [facility] Body weight 2022-11-13 12:15:00 95.21 kg [facility] BMI 2022-11-13 12:15:00 33.88 kg/m2 [facility] Oxygen saturation in Arterial blood by Pulse oximetry 2022-11-13 12:15:00 95 /min [facility] Systolic blood pressure 2022-11-03 15:35:00 154 mm[Hg] [facility] Diastolic blood pressure 2022-11-03 15:35:00 86 mm[Hg] [facility] Heart rate 2022-11-03 15:35:00 86 /min [facility] Body temperature 2022-11-03 15:35:00 37 Verna [facility] Respiratory rate 2022-11-03 15:35:00 18 /min [facility] Body height 2022-11-03 15:35:00 167.6 cm [facility] Body weight 2022-11-03 15:35:00 97.523 kg [facility] BMI 2022-11-03 15:35:00 34.70 kg/m2 [facility] Oxygen saturation in Arterial blood by Pulse oximetry 2022-11-03 15:35:00 99 /min [facility] Systolic blood pressure 2022-10-19 12:35:00 159 mm[Hg] Provider Notified [facility] Diastolic blood pressure 2022-10-19 12:35:00 85 mm[Hg] Provider Notified [facility] Heart rate 2022-10-19 12:35:00 94 /min [facility] Body temperature 2022-10-19 12:33:00 36.78 Venra [facility] Respiratory rate 2022-10-19 12:33:00 16 /min [facility] Body height 2022-10-19 12:33:00 167.6 cm [facility] Body weight 2022-10-19 12:33:00 96.616 kg [facility] BMI 2022-10-19 12:33:00 34.38 kg/m2 [facility] Oxygen saturation in Arterial blood by Pulse oximetry 2022-10-19 12:33:00 98 /min [facility] Systolic blood pressure 2023-09-03 14:41:00 131 mm[Hg] [facility] Diastolic blood pressure 2023-09-03 14:41:00 73 mm[Hg] [facility] Heart rate 2023-09-03 14:41:00 93 /min [facility] Respiratory rate 2023-09-03 14:38:00 20 /min [facility] Body height 2023-09-03 14:38:00 167.6 cm [facility] Body weight 2023-09-03 14:38:00 100.2 kg [facility] BMI 2023-09-03 14:38:00 35.65 kg/m2 [facility] Systolic blood pressure 2023-07-26 14:17:00 177 mm[Hg] [facility] Diastolic blood pressure 2023-07-26 14:17:00 92 mm[Hg] [facility] Heart rate 2023-07-26 14:17:00 97 /min [facility] Body temperature 2023-07-26 14:17:00 36.39 Verna [facility] Respiratory rate 2023-07-26 14:17:00 18 /min [facility] Body height 2023-07-26 14:17:00 167.6 cm [facility] Body weight 2023-07-26 14:17:00 100.472 kg [facility] BMI 2023-07-26 14:17:00 35.75 kg/m2 [facility] Oxygen saturation in Arterial blood by Pulse oximetry 2023-07-26 14:17:00 97 /min [facility] Systolic blood pressure 2023-06-08 07:00:00 112 mm[Hg] [facility] Diastolic blood pressure 2023-06-08 07:00:00 62 mm[Hg] [facility] Heart rate 2023-06-08 07:00:00 72 /min [facility] Respiratory rate 2023-06-08 07:00:00 20 /min [facility] Oxygen saturation in Arterial blood by Pulse oximetry 2023-06-08 07:00:00 97 /min [facility] Body weight 2023-06-08 02:41:00 108.863 kg [facility] BMI 2023-06-08 02:41:00 38.74 kg/m2 [facility] Body temperature 2023-06-08 02:38:00 36.67 Verna [facility] Body height 2023-06-08 02:34:00 167.6 cm [facility] Systolic blood pressure 2023-02-15 15:53:00 132 mm[Hg] [facility] Diastolic blood pressure 2023-02-15 15:53:00 73 mm[Hg] [facility] Heart rate 2023-02-15 15:53:00 74 /min [facility] Body temperature 2023-02-15 15:53:00 36.44 Verna [facility] Respiratory rate 2023-02-15 15:53:00 16 /min [facility] Body height 2023-02-15 15:53:00 167.6 cm [facility] Body weight 2023-02-15 15:53:00 100.336 kg [facility] BMI 2023-02-15 15:53:00 35.70 kg/m2 [facility] Oxygen saturation in Arterial blood by Pulse oximetry 2023-02-15 15:53:00 100 /min [facility] Systolic blood pressure 2023-01-22 15:03:00 144 mm[Hg] [facility] Diastolic blood pressure 2023-01-22 15:03:00 83 mm[Hg] [facility] Heart rate 2023-01-22 15:03:00 97 /min [facility] Respiratory rate 2023-01-22 15:00:00 18 /min [facility] Body height 2023-01-22 15:00:00 167.6 cm [facility] Body weight 2023-01-22 15:00:00 95.2 kg [facility] BMI 2023-01-22 15:00:00 33.88 kg/m2 [facility] Systolic blood pressure 2022-11-13 14:08:00 117 mm[Hg] [facility] Diastolic blood pressure 2022-11-13 14:08:00 70 mm[Hg] [facility] Heart rate 2022-11-13 14:08:00 64 /min [facility] Respiratory rate 2022-11-13 14:08:00 12 /min [facility] Oxygen saturation in Arterial blood by Pulse oximetry 2022-11-13 14:08:00 99 /min [facility] Body temperature 2022-11-13 13:38:00 36.39 Verna [facility] Body height 2022-11-13 12:15:00 167.6 cm [facility] Body weight 2022-11-13 12:15:00 95.21 kg [facility] BMI 2022-11-13 12:15:00 33.88 kg/m2 [facility] Systolic blood pressure 2022-11-03 15:35:00 154 mm[Hg] [facility] Diastolic blood pressure 2022-11-03 15:35:00 86 mm[Hg] [facility] Heart rate 2022-11-03 15:35:00 86 /min [facility] Body temperature 2022-11-03 15:35:00 37 Verna [facility] Respiratory rate 2022-11-03 15:35:00 18 /min [facility] Body height 2022-11-03 15:35:00 167.6 cm [facility] Body weight 2022-11-03 15:35:00 97.523 kg [facility] BMI 2022-11-03 15:35:00 34.70 kg/m2 [facility] Oxygen saturation in Arterial blood by Pulse oximetry 2022-11-03 15:35:00 99 /min [facility] Systolic blood pressure 2022-10-04 14:26:00 149 mm[Hg] [facility] Diastolic blood pressure 2022-10-04 14:26:00 76 mm[Hg] [facility] Heart rate 2022-10-04 14:26:00 78 /min [facility] Respiratory rate 2022-10-04 14:21:00 18 /min [facility] Body height 2022-10-04 14:21:00 167.6 cm [facility] Body weight 2022-10-04 14:21:00 96.843 kg [facility] BMI 2022-10-04 14:21:00 34.46 kg/m2 [facility] Systolic blood pressure 2022-07-26 13:22:00 135 mm[Hg] [facility] Diastolic blood pressure 2022-07-26 13:22:00 78 mm[Hg] [facility] Heart rate 2022-07-26 13:22:00 85 /min [facility] Respiratory rate 2022-07-26 13:22:00 18 /min [facility] Body height 2022-07-26 13:22:00 167.6 cm [facility] Body weight 2022-07-26 13:22:00 97.523 kg [facility] BMI 2022-07-26 13:22:00 34.70 kg/m2 [facility] Systolic blood pressure 2022-02-15 14:59:00 131 mm[Hg] [facility] Diastolic blood pressure 2022-02-15 14:59:00 70 mm[Hg] [facility] Heart rate 2022-02-15 14:59:00 81 /min [facility] Respiratory rate 2022-02-15 14:59:00 18 /min [facility] Body height 2022-02-15 14:59:00 167.6 cm [facility] Body weight 2022-02-15 14:59:00 102.967 kg [facility] BMI 2022-02-15 14:59:00 36.64 kg/m2 [facility] Respiratory rate 2022-01-11 17:11:00 18 /min [facility] Body height 2022-01-11 17:11:00 167.6 cm [facility] Body weight 2022-01-11 17:11:00 100.699 kg [facility] BMI 2022-01-11 17:11:00 35.83 kg/m2 [facility] Systolic blood pressure 2021-08-24 14:24:00 133 mm[Hg] [facility] Diastolic blood pressure 2021-08-24 14:24:00 73 mm[Hg] [facility] Heart rate 2021-08-24 14:24:00 69 /min [facility] Respiratory rate 2021-08-24 14:24:00 18 /min [facility] Body height 2021-08-24 14:24:00 167.6 cm [facility] Body weight 2021-08-24 14:24:00 100.245 kg [facility] BMI 2021-08-24 14:24:00 35.67 kg/m2 [facility] [facility] Oxygen saturation in Arterial blood by Pulse oximetry 2021-06-07 15:30:00 96 /min [facility] Body temperature 2021-06-07 14:20:30 37.44 Verna [facility] Procedures Procedure Date / Time Performed Performing Clinician Source URINALYSIS 2023-06-08 03:45:00 Rhiannon Vizcarra [facility] URINE DRUG (IMMUNOASSAY) - COMPREHENSIVE DRUG SCREEN W/O REFLEX 2023-06-08 03:45:00 Marysol Pabon [facility] URINALYSIS 2023-06-08 03:45:00 Rhiannon Vizcarra [facility] URINE DRUG (IMMUNOASSAY) - COMPREHENSIVE DRUG SCREEN W/O REFLEX 2023-06-08 03:45:00 Marysol Pabon [facility] CT STROKE ANGIOGRAM HEAD 2023-06-08 02:56:58 Rhiannon Vizcarra [facility] CT STROKE ANGIOGRAM NECK 2023-06-08 02:56:58 Rhiannon Vizcarra [facility] HB ECG ROUTINE & RHYTHM STRIP 2023-06-08 02:53:51 Rhiannon Vizcarra [facility] CT STROKE HEAD WO CONTRAST 2023-06-08 02:48:28 Rhiannon Vizcarra [facility] TROPONIN I 2023-06-08 02:45:00 Rhiannon Vizcarra [facility] BASIC METABOLIC PANEL (NA, K , CL, CO2, GLUCOSE, BUN, CREATININE, CA) 2023-06-08 02:45:00 Rhiannon Vizcarra [facility] LITHIUM 2023-06-08 02:45:00 Marysol Pabon [facility] ETHANOL 2023-06-08 02:45:00 Marysol Pabon [facility] CBC WITHOUT DIFF 2023-06-08 02:45:00 Rhiannon Vizcarra [facility] PROTHROMBIN TIME / INR 2023-06-08 02:45:00 Rhiannon Vizcarra [facility] ACTIVATED PARTIAL THRMPLAS CIPRIANO 2023-05-15 6 02:45:00 Rhiannon Vizcarra [facility] EXTRA TUBE LAV 2023-06-08 02:45:00 Marysol Pabon [facility] PROTHROMBIN TIME / INR 2023-06-08 02:45:00 Rhiannon Vizcarra [facility] ACTIVATED PARTIAL THRMPLAS CIPRIANO 2023-05-15 6 02:45:00 Rhiannon Vizcarra [facility] CBC WITHOUT DIFF 2023-06-08 02:45:00 Rhiannon Vizcarra [facility] TROPONIN I 2023-06-08 02:45:00 Rhiannon Vizcarra [facility] BASIC METABOLIC PANEL (NA, K , CL, CO2, GLUCOSE, BUN, CREATININE, CA) 2023-06-08 02:45:00 Rhiannon Vizcarra [facility] ETHANOL 2023-06-08 02:45:00 Marysol Pabon [facility] LITHIUM 2023-06-08 02:45:00 Marysol Pabon [facility] EXTRA TUBE LAV 2023-06-08 02:45:00 Sidney PabonChina [facility] POCT GLUCOSE(AGE >30DAYS) 2023-06-08 02:39:00 Rhiannon Vizcarra [facility] POCT GLUCOSE(AGE >30DAYS) 2023-06-08 02:39:00 Rhiannon Vizcarra [facility] IRON PANEL 2023-02-15 16:30:00 Elidia Cordero [facility] FERRITIN SERUM 2023-02-15 16:30:00 Elidia Cordero [facility] LITHIUM 2023-01-22 16:35:00 Rosalind Freed [facility] CONSENT/REFUSAL FOR DIAGNOSI S AND TREATMENT 2023-01-22 14:56:09 Doctor Unassigned, [place] [facility] CONSENT/REFUSAL FOR DIAGNOSI S AND TREATMENT 2023-01-22 14:56:09 Doctor Unassigned, [place] [facility] SURGICAL PATHOLOGY EXAM 2022-11-13 13:05:00 Bossman [facility] ESOPHAGOGASTRODUODENOSCOPY 2022-11-13 12:47:00 Bossman [facility] COLONOSCOPY 2022-11-13 12:47:00 Bossman [facility] ESOPHAGOGASTRODUODENOSCOPY 2022-11-13 12:47:00 Bossman [facility] COLONOSCOPY 2022-11-13 12:47:00 Bossman [facility] COLONOSCOPY (ENDO) 2022-11-13 12:28:53 Jewel [facility] COLONOSCOPY (ENDO) 2022-11-13 12:28:53 Jewel [facility] COLONOSCOPY (ENDO) 2022-11-13 12:28:53 Jewel [facility] EGD (ENDO) 2022-11-13 12:19:29 [facility] EGD (ENDO) 2022-11-13 12:19:29 [facility] EGD (ENDO) 2022-11-13 12:19:29 Jae Holloway [facility] CONSENT/REFUSAL FOR DIAGNOSI S AND TREATMENT 2022-11-13 12:17:09 Doctor Unassigned, [place] [facility] CONSENT/REFUSAL FOR DIAGNOSI S AND TREATMENT 2022-11-13 12:17:09 Doctor Unassigned, [place] [facility] ASSIGNMENT OF BENEFITS 2022-11-13 11:59:03 Doctor Unassigned, [place] [facility] ASSIGNMENT OF BENEFITS 2022-11-13 11:59:03 Doctor Unassigned, [place] [facility] ENDOSCOPY PROCEDURE DOCUMENTATION 2022-02 0 05:01:00 Doctor Unassigned, [place] [facility] ENDOSCOPY PROCEDURE DOCUMENTATION 2022-02 002 05:01:00 Doctor Unassigned, [place] [facility] COMP. METABOLIC PANEL (84485) 2022-11-03 16:24:00 Dora Newman [facility] CBC WITH DIFF 2022-11-03 16:24:00 Dora Newman [facility] POCT TEST 2022-11-03 16:24:00 Dora Newman [facility] CBC WITH DIFF 2022-11-03 16:24:00 Dora Newman [facility] POCT TEST 2022-11-03 16:24:00 Dora Newman [facility] COMP. METABOLIC PANEL (33977) 2022-11-03 16:24:00 Dora Newman [facility] URINALYSIS 2022-11-03 16:18:00 Dora Newman [facility] URINALYSIS 2022-11-03 16:18:00 Dora Newman [facility] RAPID STREP SCREEN FOR GROUP A 2022-10-14 2 16:14:00 Dora Newman [facility] RAPID STREP SCREEN FOR GROUP A 2022-10-14 2 16:14:00 Dora Newman [facility] THROAT CULTURE 2022-11-03 16:14:00 Dora Newman [facility] CONSENT/REFUSAL FOR DIAGNOSI S AND TREATMENT 2022-11-03 15:27:05 Doctor Unassigned, [place] [facility] CONSENT/REFUSAL FOR DIAGNOSI S AND TREATMENT 2022-11-03 15:27:05 Doctor Unassigned, [place] [facility] EMERGENCY SERVICES AGREEMENT S AND AUTHORIZATIONS 2022-11-03 05:01:00 Doctor Unassigned, [place] [facility] HELICOBACTER PYLORI ANTIGEN, FECAL BY EIA 2022-10-19 13:44:00 Elidia Cordero [facility] HELICOBACTER PYLORI ANTIGEN, FECAL BY EIA 2022-10-19 13:44:00 Elidia Cordero [facility] FERRITIN SERUM 2022-10-19 13:35:00 Elidia Cordero [facility] IRON PANEL 2022-10-19 13:35:00 Elidia Cordero [facility] CELIAC SCREEN 2022-10-19 13:35:00 Elidia Cordero [facility] LAB ONLY CELIAC SCREEN IGA 2022-10-19 13:35:00 Elidia Cordero [facility] IRON PANEL 2022-10-19 13:35:00 Elidia Cordero [facility] CELIAC SCREEN 2022-10-19 13:35:00 Elidia Cordero [facility] FERRITIN SERUM 2022-10-19 13:35:00 Elidia Cordero [facility] LAB ONLY CELIAC SCREEN IGA 2022-10-19 13:35:00 Elidia Cordero [facility] DISCLOSURE AND CONSENT, MEDI JAVAD AND SURGICAL PROCEDURES 2022-10-19 05:01:00 Doctor Unassigned, [place] [facility] DISCLOSURE AND CONSENT, MEDI JAVAD AND SURGICAL PROCEDURES 2022-10-19 05:01:00 Doctor Unassigned, [place] [facility] REFERRAL- REQUEST/RESPONSE 2022-10-12 05:01:00 Doctor Unassigned, [place] [facility] REFERRAL- REQUEST/RESPONSE 2022-10-12 05:01:00 Doctor Unassigned, [place] [facility] THYROID STIMULATING HORMONE 2022-10-05 15:15:00 Freed, [facility] COMP. METABOLIC PANEL (35357) 2022-10-05 15:15:00 Abdiaziz [facility] LIPID PANEL (90315)(TOTAL CHOLESTEROL, TRIGLYCERIDES, HDL) 2022-10-05 15:15:00 Abdiaziz [facility] LITHIUM 2022-10-05 15:15:00 Sara Hester [facility] CBC WITH DIFF 2022-10-05 15:15:00 Abdiaziz [facility] GLYCOSYLATED HEMOGLOBIN (A1C) 2022-10-05 15:15:00 Abdiaziz [facility] CBC WITH DIFF 2022-10-05 15:15:00 Abdiaziz [facility] COMP. METABOLIC PANEL (08597) 2022-10-05 15:15:00 Abdiaziz [facility] GLYCOSYLATED HEMOGLOBIN (A1C) 2022-10-05 15:15:00 Abdiaziz [facility] LIPID PANEL (25375)(TOTAL CHOLESTEROL, TRIGLYCERIDES, HDL) 2022-10-05 15:15:00 Abdiaziz [facility] THYROID STIMULATING HORMONE 2022-10-05 15:15:00 Abdiaziz [facility] LITHIUM 2022-10-05 15:15:00 Kim Hesterberly [facility] ASSIGNMENT OF BENEFITS 2022-10-04 14:17:30 Doctor Unassigned, [place] [facility] ASSIGNMENT OF BENEFITS 2022-10-04 14:17:30 Doctor Unassigned, [place] [facility] LITHIUM 2022-07-26 14:49:00 Angela Sage [facility] PATIENT FINANCIAL POLICY 2022-07-26 13:16:12 Doctor Unassigned, [place] [facility] PATIENT FINANCIAL POLICY 2022-07-26 13:16:12 Doctor Unassigned, [place] [facility] EXTERNAL PROVIDER RECORDS 2022-04-08 06:01:00 Doctor Unassigned, [place] [facility] EXTERNAL PROVIDER RECORDS 2022-04-08 06:01:00 Doctor Unassigned, [place] [facility] EXTERNAL PROVIDER RECORDS 2022-02-21 06:01:00 Doctor Unassigned, [place] [facility] EXTERNAL PROVIDER RECORDS 2022-02-21 06:01:00 Doctor Unassigned, [place] [facility] LITHIUM 2022-02-15 15:58:00 Angela Sage [facility] CONSENT/REFUSAL FOR DIAGNOSI S AND TREATMENT 2022-01-11 17:10:16 Doctor Unassigned, [place] [facility] CONSENT/REFUSAL FOR DIAGNOSI S AND TREATMENT 2022-01-11 17:10:16 Doctor Unassigned, [place] [facility] EXTERNAL PROVIDER RECORDS 2020-11-26 05:01:00 Doctor Unassigned, [place] [facility] Encounters Start Date/Time End Date/Time Encounter Type Admission Type Attending [facility] Care Facility Care Department Encounter ID Source 2020-12-13 10:09:54 Emergency [facility] [id number] [facility] 2020-12-11 04:02:45 Emergency [facility] [id number] [facility] 2023-09-03 09:30:00 2023-09-03 11:20:53 Outpatient ALESHA AMBRIZ [facility] [id number] [facility] 2023-09-03 00:00:00 2023-09-03 00:00:00 Travel 1.2.840.1 33950.1.1 3.104.2.7 .3.894626 .8 1.2.840.114 350.1.13.10 4.2.7.3.698 084.8 [id number] [facility] 2023-08-31 00:00:00 2023-08-31 00:00:00 Travel 1.2.840.1 20324.1.1 3.104.2.7 .3.139953 .8 1.2.840.114 350.1.13.10 4.2.7.3.698 084.8 [id number] [facility] 2023-08-27 08:00:00 2023-08-27 08:00:[address] [facility] [facility] [id number] 2023-08-24 00:00:00 2023-08-24 00:00:00 Travel 1.2.840.1 33124.1.1 3.104.2.7 .3.754527 .8 1.2.840.114 350.1.13.10 4.2.7.3.698 084.8 [id number] [facility] 2023-08-08 00:00:00 2023-08-08 12:08:14 Case Management Elidia Cordero 1.2.840.1 60444.1.1 3.104.2.7 .3.672926 .8 [id number] [facility] 2023-07-02 00:00:00 2023-08-04 18:20:55 Patient Secure Msg Onurfidelinaelizabeth Dominic 1.2.840.1 44373.1.1 3.104.2.7 .3.489261 .8 [id number] [facility] 2023-08-03 00:00:00 2023-08-03 08:18:24 Telephone Elidia Cordero 1.2.840.1 45818.1.1 3.104.2.7 .3.112865 .8 [id number] [facility] 2023-07-30 00:00:00 2023-07-30 15:44:55 Telephone Elidia Cordero 1.2.840.1 72739.1.1 3.104.2.7 .3.300155 .8 [id number] [facility] 2023-07-26 09:30:00 2023-07-26 10:00:00 Office Visit Jose Westbrook Abdullah Azzam 1.2.840.1 36779.1.1 3.104.2.7 .3.809061 .8 [id number] [facility] 2023-07-26 09:30:00 2023-07-26 09:30:00 Outpatient R JOSE WESTBROOK [facility] [id number] [facility] 2023-07-26 00:00:00 2023-07-26 00:00:00 Travel 1.2.840.1 28999.1.1 3.104.2.7 .3.796420 .8 1.2.840.114 350.1.13.10 4.2.7.3.698 084.8 [id number] [facility] 2023-07-18 10:15:00 2023-07-18 10:15:00 Outpatient R FARZANA SAUCEDA [facility] [id number] [facility] 2023-07-16 00:00:00 2023-07-16 00:00:00 Travel 1.2.840.1 91623.1.1 3.104.2.7 .3.878744 .8 1.2.840.114 350.1.13.10 4.2.7.3.698 084.8 [id number] [facility] 2023-07-02 00:00:00 2023-07-02 12:41:14 Telephone Elidia Cordero 1.2.840.1 93774.1.1 3.104.2.7 .3.103962 .8 [id number] [facility] 2023-06-13 00:00:00 2023-06-13 10:19:53 Letter (Out) 1.2.840.1 61417.1.1 3.104.2.7 .3.206656 .8 [id number] [facility] 2023-06-07 21:35:00 2023-06-08 02:20:00 Emergency X MARYSOL PABON [facility] E[facility] [id number] [facility] 2023-06-07 21:35:00 2023-06-08 02:20:00 Emergency Marysol Pabon Whitney T 1.2.840.1 64244.1.1 3.104.2.7 .3.555898 .8 [id number] [facility] 2023-06-07 00:00:00 2023-06-07 00:00:00 Travel 1.2.840.1 43152.1.1 3.104.2.7 .3.487250 .8 1.2.840.114 350.1.13.10 4.2.7.3.698 084.8 [id number] [facility] 2023-05-29 00:00:00 2023-06-04 10:54:35 Patient Secure Msg Dominic Keita 1.2.840.1 34382.1.1 3.104.2.7 .3.513558 .8 [id number] [facility] 2023-05-28 08:45:00 2023-05-28 08:45:00 Outpatient DAVIDSON MYEER [facility] [id number] [facility] 2023-05-25 00:00:00 2023-05-25 00:00:00 Travel 1.2.840.1 33442.1.1 3.104.2.7 .3.996926 .8 1.2.840.114 350.1.13.10 4.2.7.3.698 084.8 [id number] [facility] 2023-05-22 08:17:37 2023-05-22 08:17:37 Outpatient SAM VARGAS [id number] Robert F Viraj 2023-05-11 00:00:00 2023-05-11 17:06:28 Telephone Elidia Cordero 1.2.840.1 52856.1.1 3.104.2.7 .3.221229 .8 [id number] [facility] 2023-05-09 00:00:00 2023-05-09 17:14:57 Patient Secure Msg Dominic Keita 1.2.840.1 90299.1.1 3.104.2.7 .3.533937 .8 [id number] [facility] 2023-05-08 10:00:00 2023-05-08 10:00:00 Outpatient R EMILIA SNOWDEN [facility] [id number] [facility] 2023-03-28 00:00:00 2023-04-28 18:05:02 Patient Secure Msg Doctor Unassigned, [place] 1.2.840.1 61089.1.1 3.104.2.7 .3.902762 .8 [id number] [facility] 2023-04-18 08:00:00 2023-04-18 08:00:00 Outpatient R FARZANA SAUCEDA [facility] [id number] [facility] 2023-04-17 00:00:00 2023-04-17 00:00:00 Travel 1.2.840.1 19947.1.1 3.104.2.7 .3.057887 .8 1.2.840.114 350.1.13.10 4.2.7.3.698 084.8 [id number] [facility] 2023-04-11 13:00:00 2023-04-11 13:00:00 Outpatient R EMILIA SNOWDEN [facility] [id number] [facility] 2023-04-11 13:00:00 2023-04-11 13:00:00 Outpatient R EMILIA SNOWDEN [facility] [id number] [facility] 2023-04-04 08:00:00 2023-04-04 08:00:00 Outpatient R [facility] [id number] [facility] 2023-04-02 00:00:00 2023-04-02 00:00:00 Travel 1.2.840.1 04090.1.1 3.104.2.7 .3.031780 .8 1.2.840.114 350.1.13.10 4.2.7.3.698 084.8 [id number] [facility] 2023-03-09 00:00:00 2023-03-09 00:00:00 Telephone Elidia Cordero 1.2.840.1 49506.1.1 3.104.2.7 .3.968196 .8 [id number] [facility] 2023-03-08 00:00:00 2023-03-08 00:00:00 Telephone Elidia Cordero 1.2.840.1 18134.1.1 3.104.2.7 .3.007140 .8 [id number] [facility] 2023-02-28 10:15:00 2023-02-28 10:15:00 Outpatient SARA DELGADILLO KIMBERLY [facility] [id number] [facility] 2023-02-27 00:00:00 2023-02-27 00:00:00 Travel 1.2.840.1 89405.1.1 3.104.2.7 .3.217884 .8 1.2.840.114 350.1.13.10 4.2.7.3.698 084.8 [id number] [facility] 2023-02-15 10:30:00 2023-02-15 10:45:00 Practice Billing Associate Visit Jewel Cunha [facility] 1.2.840.1 33942.1.1 3.104.2.7 .3.736572 .8 [id number] [facility] 2023-02-15 09:30:00 2023-02-15 10:00:00 Office Visit Jewel Cunha Abdullkarl Mavis 1.2.840.1 51534.1.1 3.104.2.7 .3.866111 .8 [id number] [facility] 2023-02-15 09:30:00 2023-02-15 09:30:00 Outpatient R JEWEL CUNHA [facility] [id number] [facility] 2023-02-15 00:00:00 2023-02-15 00:00:00 Travel 1.2.840.1 89837.1.1 3.104.2.7 .3.215754 .8 1.2.840.114 350.1.13.10 4.2.7.3.698 084.8 [id number] [facility] 2023-01-23 13:00:00 2023-01-23 13:00:00 Outpatient R JENNY ARRIAGA RIZWAN [facility] [id number] [facility] 2023-01-22 10:15:00 2023-01-22 10:30:00 Practice Billing Associate Visit Dexter Dias [facility] 1.2.840.1 81156.1.1 3.104.2.7 .3.547003 .8 [id number] [facility] 2023-01-22 09:30:00 2023-01-22 10:07:50 Outpatient R DEXTER DIAS [facility] [id number] [facility] 2023-01-22 00:00:00 2023-01-22 00:00:00 Orders Only Doctor Unassigned, [place] 1.2.840.1 70203.1.1 3.104.2.7 .3.419933 .8 [id number] [facility] 2023-01-22 00:00:00 2023-01-22 00:00:00 Travel 1.2.840.1 12829.1.1 3.104.2.7 .3.945427 .8 1.2.840.114 350.1.13.10 4.2.7.3.698 084.8 [id number] [facility] 2023-01-15 00:00:00 2023-01-15 00:00:00 Telephone Elidia Cordero 1.2.840.1 65199.1.1 3.104.2.7 .3.357666 .8 [id number] [facility] 2023-01-12 00:00:00 2023-01-12 00:00:00 Patient Secure Msg Dominic Keita 1.2.840.1 59207.1.1 3.104.2.7 .3.249303 .8 [id number] [facility] 2022-12-29 09:30:00 2022-12-29 09:30:00 Outpatient R JENNY ARRIAGA RIZWAN [facility] [id number] [facility] 2022-12-29 00:00:00 2022-12-29 00:00:00 Telephone Elidia Cordero 1.2.840.1 67866.1.1 3.104.2.7 .3.992963 .8 [id number] [facility] 2022-12-29 00:00:00 2022-12-29 00:00:00 Telephone Elidia Cordero 1.2.840.1 29388.1.1 3.104.2.7 .3.110357 .8 [id number] [facility] 2022-12-28 00:00:00 2022-12-28 00:00:00 Case Management Elidia Cordero 1.2.840.1 70074.1.1 3.104.2.7 .3.311468 .8 [id number] [facility] 2022-12-20 16:00:00 2022-12-20 16:46:31 Outpatient R [facility] [id number] [facility] 2022-12-20 09:49:08 2022-12-20 09:49:08 Outpatient [facility] [id number] Robret Cali 2022-12-19 00:00:2022-12-19 00:00:00 Travel 1.2.840.1 06120.1.1 3.104.2.7 .3.831160 .8 1.2.840.114 350.1.13.10 4.2.7.3.698 084.8 [id number] [facility] 2022-12-18 09:30:00 2022-12-18 09:30:00 Outpatient R [facility] [id number] [facility] 2022-12-18 00:00:00 2022-12-18 00:00:00 Telephone Elidia Cordero 1.2.840.1 06584.1.1 3.104.2.7 .3.926599 .8 [id number] [facility] 2022-12-14 00:00:00 2022-12-14 00:00:00 Patient Secure Msg Doctor Unassigned, [place] 1.2.840.1 37390.1.1 3.104.2.7 .3.260321 .8 [id number] [facility] 2022-12-11 08:45:00 2022-12-11 08:45:00 Outpatient R [facility] [id number] [facility] 2022-12-10 00:00:00 2022-12-10 00:00:00 Outpatient GC_GCBZW_Ka diyala_S [facility] [id number] [facility] 2022-12-08 15:30:00 2022-12-08 15:30:00 Outpatient R JENNY ARRIAGA RIZWAN [facility] [id number] [facility] 2022-12-06 08:00:00 2022-12-06 08:00:00 Outpatient R ONEIDA MONTANA [facility] [id number] [facility] 2022-11-29 00:00:00 2022-11-29 00:00:00 Telephone Elidia Cordero 1.2.840.1 51654.1.1 3.104.2.7 .3.080012 .8 [id number] [facility] 2022-11-27 00:00:00 2022-11-27 00:00:00 Telephone Elidia Cordero 1.2.840.1 76319.1.1 3.104.2.7 .3.028246 .8 [id number] [facility] 2022-11-27 00:00:00 2022-11-27 00:00:00 Telephone Elidia Cordero 1.2.840.1 77659.1.1 3.104.2.7 .3.951440 .8 [id number] [facility] 2022-11-23 00:00:00 2022-11-23 00:00:00 Telephone Elidia Cordero 1.2.840.1 70615.1.1 3.104.2.7 .3.851396 .8 [id number] [facility] 2022-11-23 00:00:00 2022-11-23 00:00:00 Telephone Elidia Cordero 1.2.840.1 49612.1.1 3.104.2.7 .3.669834 .8 [id number] [facility] 2022-11-22 09:30:00 2022-11-22 09:30:00 Outpatient R [facility] [id number] [facility] 2022-11-16 00:00:00 2022-11-16 00:00:00 Telephone Elidia Cordero 1.2.840.1 83693.1.1 3.104.2.7 .3.511117 .8 [id number] [facility] 2022-11-16 00:00:00 2022-11-16 00:00:00 Patient Secure Msg Dominic Keita 1.2.840.1 82805.1.1 3.104.2.7 .3.047298 .8 [id number] [facility] 2022-11-13 06:59:00 2022-11-13 09:48:00 Outpatient R DOMINIC KEITA [facility] [id number] [facility] 2022-11-13 06:59:00 2022-11-13 09:48:00 Hospital Encounter Dominic Keita 1.2.840.1 17347.1.1 3.104.2.7 .3.382893 .8 [id number] [facility] 2022-11-13 07:58:00 2022-11-13 08:33:00 Anesthesia Event Hunter Cruz Joan 1.2.840.1 92366.1.1 3.104.2.7 .3.706964 .8 [id number] [facility] 2022-11-13 07:15:00 2022-11-13 08:15:00 Surgery Dominic Keita 1.2.840.1 06754.1.1 3.104.2.7 .3.878271 .8 [id number] [facility] 2022-11-13 00:00:00 2022-11-13 00:00:00 Orders Only Doctor Unassigned, [place] 1.2.840.1 67391.1.1 3.104.2.7 .3.754849 .8 [id number] [facility] 2022-11-13 00:00:00 2022-11-13 00:00:00 Telephone Dominic Keita 1.2.840.1 99877.1.1 3.104.2.7 .3.583606 .8 [id number] [facility] 2022-11-13 00:00:00 2022-11-13 00:00:00 Travel 1.2.840.1 53535.1.1 3.104.2.7 .3.922403 .8 1.2.840.114 350.1.13.10 4.2.7.3.698 084.8 [id number] [facility] 2022-11-10 00:00:00 2022-11-10 00:00:00 Outpatient R RADIOLOGY [facility] [id number] [facility] 2022-11-10 00:00:00 2022-11-10 00:00:00 Patient Secure Msg Dominic Keita 1.2.840.1 99324.1.1 3.104.2.7 .3.993242 .8 [id number] [facility] 2022-11-09 00:00:00 2022-11-09 00:00:00 Patient Secure Msg Doctor Unassigned, [place] 1.2.840.1 82810.1.1 3.104.2.7 .3.339705 .8 [id number] [facility] 2022-11-07 00:00:00 2022-11-07 00:00:00 Patient Secure Msg Doctor Unassigned, [place] 1.2.840.1 77590.1.1 3.104.2.7 .3.859221 .8 [id number] [facility] 2022-11-03 10:36:00 2022-11-03 13:16:00 Emergency X DORA NEWMAN [facility] ERT [id number] [facility] 2022-11-03 10:36:00 2022-11-03 13:16:00 Emergency Dora Newman G 1.2.840.1 47623.1.1 3.104.2.7 .3.027313 .8 [id number] [facility] 2022-11-03 00:00:00 2022-11-03 00:00:00 Travel 1.2.840.1 63505.1.1 3.104.2.7 .3.103722 .8 1.2.840.114 350.1.13.10 4.2.7.3.698 084.8 [id number] [facility] 2022-10-30 00:00:00 2022-10-30 00:00:00 Case Management Elidia Cordero 1.2.840.1 44998.1.1 3.104.2.7 .3.037022 .8 [id number] [facility] 2022-10-19 08:30:00 2022-10-19 08:45:00 Practice Billing Associate Visit Jewel Cunha [facility] 1.2.840.1 76089.1.1 3.104.2.7 .3.547263 .8 [id number] [facility] 2022-10-19 07:30:00 2022-10-19 08:15:30 Outpatient R JEWEL CUNHA [facility] [id number] [facility] 2022-10-19 07:30:00 2022-10-19 08:15:30 Office Visit Jewel Cunha SaschaanakarlElidia 1.2.840.1 60730.1.1 3.104.2.7 .3.038519 .8 [id number] [facility] 2022-10-19 00:00:00 2022-10-19 00:00:00 Orders Only Doctor Unassigned, [place] 1.2.840.1 89912.1.1 3.104.2.7 .3.810654 .8 [id number] [facility] 2022-10-18 00:00:00 2022-10-18 00:00:00 Travel 1.2.840.1 17359.1.1 3.104.2.7 .3.762410 .8 1.2.840.114 350.1.13.10 4.2.7.3.698 084.8 [id number] [facility] 2022-10-12 09:56:06 2022-10-12 09:56:06 Outpatient [facility] [id number] Robert Cali 2022-10-12 00:00:00 2022-10-12 00:00:00 Orders Only Doctor Unassigned, [place] 1.2.840.1 90418.1.1 3.104.2.7 .3.080395 .8 [id number] [facility] 2022-10-05 10:15:00 2022-10-05 10:30:00 Practice Billing Associate Visit Kath Vences, [facility] 1.2.840.1 89938.1.1 3.104.2.7 .3.791079 .8 [id number] [facility] 2022-10-05 10:15:00 2022-10-05 10:15:00 Outpatient R KATH VENCES [facility] [id number] [facility] 2022-10-04 09:30:00 2022-10-04 10:30:11 Outpatient R DEXTER DIAS [facility] [id number] [facility] 2022-10-04 00:00:00 2022-10-04 00:00:00 Orders Only Doctor Unassigned, [place] 1.2.840.1 32645.1.1 3.104.2.7 .3.589368 .8 [id number] [facility] 2022-10-04 00:00:00 2022-10-04 00:00:00 Travel 1.2.840.1 59537.1.1 3.104.2.7 .3.418721 .8 1.2.840.114 350.1.13.10 4.2.7.3.698 084.8 [id number] [facility] 2022-10-02 00:00:00 2022-10-02 00:00:00 Travel 1.2.840.1 13878.1.1 3.104.2.7 .3.977100 .8 1.2.840.114 350.1.13.10 4.2.7.3.698 084.8 [id number] [facility] 2022-09-06 08:45:00 2022-09-06 08:45:00 Outpatient SARA DELGADILLO KIMBERLY [facility] [id number] [facility] 2022-09-06 00:00:00 2022-09-06 00:00:00 Travel 1.2.840.1 29508.1.1 3.104.2.7 .3.614461 .8 1.2.840.114 350.1.13.10 4.2.7.3.698 084.8 [id number] [facility] 2022-07-26 11:00:00 2022-07-26 11:15:00 Practice Billing Associate Visit Pathology Pcp-Lab 1.2.840.1 40902.1.1 3.104.2.7 .3.436375 .8 [id number] [facility] 2022-07-26 08:45:00 2022-07-26 09:37:46 Outpatient SARA DELGADILLO KIMBERLY [facility] [id number] [facility] 2022-07-26 00:00:00 2022-07-26 00:00:00 Orders Only Doctor Unassigned, [place] 1.2.840.1 29412.1.1 3.104.2.7 .3.718891 .8 [id number] [facility] 2022-07-26 00:00:00 2022-07-26 00:00:00 Travel 1.2.840.1 56242.1.1 3.104.2.7 .3.087706 .8 1.2.840.114 350.1.13.10 4.2.7.3.698 084.8 [id number] [facility] 2022-07-24 13:24:12 2022-07-24 13:24:12 Outpatient SAM VARGAS [id number] Robert Cali 2022-06-27 13:49:18 2022-06-27 13:49:18 Outpatient [facility] [id number] Robert Cali 2022-06-21 08:52:50 2022-06-21 08:52:50 Outpatient [facility] [id number] Robert Cali 2022-06-15 15:23:34 2022-06-15 15:23:34 Outpatient [facility] [id number] Robert Cali 2022-05-31 08:45:00 2022-05-31 08:45:00 Outpatient SARA DELGADILLO [facility] [id number] [facility] 2022-05-30 11:55:27 2022-05-30 11:55:27 Outpatient [facility] [id number] Robert Cali 2022-05-23 11:17:29 2022-05-23 11:17:29 Outpatient [facility] [id number] Robert Cali 2022-05-12 08:06:11 2022-05-12 08:06:11 Outpatient [facility] [id number] Robert Cali 2022-05-11 13:45:44 2022-05-11 13:45:44 Outpatient [facility] [id number] Robert Cali 2022-04-08 00:00:00 2022-04-08 00:00:00 Orders Only Doctor Unassigned, [place] 1.2.840.1 22628.1.1 3.104.2.7 .3.088308 .8 [id number] [facility] 2022-02-21 00:00:00 2022-02-21 00:00:00 Orders Only Doctor Unassigned, [place] 1.2.840.1 37933.1.1 3.104.2.7 .3.038594 .8 [id number] [facility] 2022-02-15 13:30:00 2022-02-15 13:45:00 Practice Billing Associate Visit Pathology Pcp-Lab 1.2.840.1 18591.1.1 3.104.2.7 .3.170802 .8 [id number] [facility] 2022-02-15 08:45:00 2022-02-15 10:52:26 Outpatient DEXTER MIRELES [facility] [id number] [facility] 2022-02-15 00:00:00 2022-02-15 00:00:00 Travel 1.2.840.1 62438.1.1 3.104.2.7 .3.876963 .8 1.2.840.114 350.1.13.10 4.2.7.3.698 084.8 [id number] [facility] 2022-01-11 11:00:00 2022-01-11 12:39:46 Outpatient SARA DELGADILLO KIM[facility] [id number] [facility] 2022-01-11 00:00:00 2022-01-11 00:00:00 Orders Only Doctor Unassigned, [place] 1.2.840.1 91315.1.1 3.104.2.7 .3.735786 .8 [id number] [facility] 2022-01-11 00:00:00 2022-01-11 00:00:00 Travel 1.2.840.1 33860.1.1 3.104.2.7 .3.749702 .8 1.2.840.114 350.1.13.10 4.2.7.3.698 084.8 [id number] [facility] 2021-11-24 09:30:00 2021-11-24 09:30:00 Outpatient IGOR Castaneda RAI [facility] [id number] [facility] 2021-11-16 11:00:00 2021-11-16 11:00:00 Outpatient SARA DELGADILLO [facility]IM[facility] [id number] [facility] 2021-10-26 08:00:00 2021-10-26 08:00:00 Outpatient R DEXTER DIAS [facility] [id number] [facility] 2021-10-20 10:00:00 2021-10-20 10:00:00 Outpatient R IGOR SAAVEDRA [facility] [id number] [facility] 2021-10-03 14:30:00 2021-10-03 14:30:00 Outpatient R VEEGEMADAVIDSON MIN [facility] [id number] [facility] 2021-09-21 09:30:00 2021-09-21 09:30:00 Outpatient R LARISSA [facility] [id number] [facility] 2021-08-24 09:30:00 2021-08-24 10:41:34 Outpatient R LARISSA [facility] [id number] [facility] 2021-08-24 00:00:00 2021-08-24 00:00:00 Travel 1.2.840.1 90901.1.1 3.104.2.7 .3.852342 .8 1.2.840.114 350.1.13.10 4.2.7.3.698 084.8 [id number] [facility] 2021-07-25 09:00:00 2021-07-25 09:00:00 Outpatient R LARISSA [facility] [id number] [facility] 2021-06-22 11:15:00 2021-06-22 12:18:05 Outpatient R SARA HESTER [facility]LY [facility] [id number] [facility] 2021-06-22 11:15:00 2021-06-22 11:15:00 Outpatient R SARA HESTER KIMBERLY [facility] [id number] [facility] 2021-06-22 00:00:00 2021-06-22 00:00:00 Travel 1.2.840.1 33194.1.1 3.104.2.7 .3.258203 .8 1.2.840.114 350.1.13.10 4.2.7.3.698 084.8 [id number] [facility] 2021-06-20 11:15:00 2021-06-20 11:15:00 [id number] 2021-06-20 11:15:00 2021-06-20 11:15:00 [facility] [id number] [facility] 2021-06-08 09:20:00 2021-06-08 09:20:00 Outpatient R TERESA HILARY LYN [facility] [id number] [facility] 2021-06-08 00:00:00 2021-06-08 00:00:00 Patient Secure Igor William Rai [facility] 1.2.840.114 350.1.13.10 4.2.7.2.686 [id number] [facility] 2021-06-07 09:13:00 2021-06-07 10:50:00 Emergency X GIGI MONROY [facility] ERT [id number] [facility] 2021-06-07 09:13:00 2021-06-07 10:50:00 Emergency MonroyGgii clark [facility] 1.2.840.114 350.1.13.10 4.2.7.2.686 [id number] [facility] 2021-06-07 09:13:00 2021-06-07 10:50:00 Emergency Gigi Monroy 1.2.840.1 94124.1.1 3.104.2.7 .3.107224 .8 [id number] [facility] 2021-06-07 00:00:00 2021-06-07 00:00:00 Outpatient R IGOR SAAVEDRA [facility] [id number] [facility] 2021-06-07 00:00:00 2021-06-07 00:00:00 Orders Only Doctor Unassigned, [place] [facility] 1.2.840.114 350.1.13.10 4.2.7.2.686 [id number] [facility] 2021-06-07 00:00:00 2021-06-07 00:00:00 Travel 1.2.840.1 27202.1.1 3.104.2.7 .3.346501 .8 1.2.840.114 350.1.13.10 4.2.7.3.698 084.8 [id number] [facility] 2021-06-07 00:00:00 2021-06-07 00:00:00 Orders Only Doctor Unassigned, [place] 1.2.840.1 15601.1.1 3.104.2.7 .3.261663 .8 [id number] [facility] 2021-06-03 00:00:00 2021-06-03 00:00:00 Travel 1.2.840.1 28516.1.1 3.104.2.7 .3.950225 .8 1.2.840.114 350.1.13.10 4.2.7.3.698 084.8 [id number] [facility] 2021-05-27 00:00:00 2021-05-27 00:00:00 Outpatient IGOR Castaneda RAI [facility] [id number] [facility] 2021-05-27 00:00:00 2021-05-27 00:00:00 Outpatient IGOR Castaneda RAI [facility] [id number] [facility] 2021-05-25 00:00:00 2021-05-25 00:00:00 Patient Secure Msg Doctor Unassigned, [place] [facility] 1.2.840.114 350.1.13.10 4.2.7.2.686 [id number] [facility] 2021-05-25 00:00:00 2021-05-25 00:00:00 Patient Secure Msg Doctor Unassigned, [place] 1.2.840.1 31682.1.1 3.104.2.7 .3.409227 .8 [id number] [facility] 2021-05-20 00:00:00 2021-05-20 00:00:00 Telephone Zane Martinez 1.2.840.1 01850.1.1 3.104.2.7 .3.793228 .8 [id number] [facility] 2021-05-20 00:00:00 2021-05-20 00:00:00 Telephone Zane Martinez 1.2.840.1 29477.1.1 3.104.2.7 .3.468704 .8 [id number] [facility] 2021-05-18 00:00:00 2021-05-18 00:00:00 Travel 1.2.840.1 21747.1.1 3.104.2.7 .3.069122 .8 1.2.840.114 350.1.13.10 4.2.7.3.698 084.8 [id number] [facility] 2021-05-18 00:00:00 2021-05-18 00:00:00 Travel 1.2.840.1 61661.1.1 3.104.2.7 .3.561917 .8 1.2.840.114 350.1.13.10 4.2.7.3.698 084.8 [id number] [facility] 2021-05-17 13:15:00 2021-05-17 13:30:00 Practice Billing Associate Visit Pcp-Lab Igor Saavedra [facility] 1.2.840.114 350.1.13.10 4.2.7.2.686 [id number] [facility] 2021-05-17 13:15:00 2021-05-17 13:30:00 Practice Billing Associate Visit Igor Saavedra Pcp-Lab 1.2.840.1 67792.1.1 3.104.2.7 .3.818710 .8 [id number] [facility] 2021-05-17 13:15:00 2021-05-17 13:30:00 Practice Billing Associate Visit Igor Saavedra Pcp-Lab 1.2.840.1 47320.1.1 3.104.2.7 .3.095438 .8 [id number] [facility] 2021-05-17 09:00:00 2021-05-17 10:25:05 Outpatient R IGOR SAAVEDRA [facility] [id number] [facility] 2021-05-17 09:00:00 2021-05-17 10:25:05 Office Visit Igor Saavedra Neeharika 1.2.840.1 74869.1.1 3.104.2.7 .3.307088 .8 [id number] [facility] 2021-05-17 09:00:00 2021-05-17 10:25:05 Outpatient R IGOR SAAVEDRA [facility] [id number] [facility] 2021-05-17 09:30:00 2021-05-17 09:30:00 Outpatient R IGOR SAAVEDRA [facility] [id number] [facility] 2021-05-17 00:00:00 2021-05-17 00:00:00 Travel 1.2.840.1 07450.1.1 3.104.2.7 .3.006115 .8 1.2.840.114 350.1.13.10 4.2.7.3.698 084.8 [id number] [facility] 2021-05-17 00:00:00 2021-05-17 00:00:00 Travel 1.2.840.1 88023.1.1 3.104.2.7 .3.596984 .8 1..840.114 350.1.13.10 4.2.7.3.698 084.8 [id number] [facility] 2021-04-26 09:00:00 2021-04-26 09:00:00 Outpatient R [facility] [id number] [facility] 2021-04-26 09:00:00 2021-04-26 09:00:00 Outpatient R WENDY, AVELINO [facility] [id number] [facility] 2021-04-20 08:45:00 2021-04-20 08:45:00 Outpatient SARA DELGADILLO KIMBERLY [facility] [id number] [facility] 2021-04-11 08:40:00 2021-04-11 08:40:00 Outpatient SALLY FIGUEROA HOWARD [facility] [id number] [facility] 2021-04-11 08:40:00 2021-04-11 08:40:00 Outpatient SALLY FIGUEROA HOWARD [facility] [id number] [facility] 2021-03-21 08:00:00 2021-03-21 08:00:00 Outpatient SALLY FIGUEROA HOWARD [facility] [id number] [facility] 2021-03-17 00:00:00 2021-03-17 00:00:00 Patient Secure Msg Doctor Unassigned, [place] [facility] 1..840.114 350.1.13.10 4.2.7.2.686 [id number] [facility] 2021-03-17 00:00:00 2021-03-17 00:00:00 Patient Secure Msg Doctor Unassigned, [place] 1..840.1 51766.1.1 3.104.2.7 .3.868457 .8 [id number] [facility] 2021-03-17 00:00:00 2021-03-17 00:00:00 Patient Secure Msg Doctor Unassigned, [place] 1.2840.1 61277.1.1 3.104.2.7 .3.420019 .8 [id number] [facility] 2021-03-16 13:15:00 2021-03-16 13:30:00 Practice Billing Associate Visit Salbador Lockwood Pcp-Lab 1.2.840.1 76881.1.1 3.104.2.7 .3.883159 .8 [id number] [facility] 2021-03-16 13:15:00 2021-03-16 13:30:00 Practice Billing Associate Visit Salbador Lockwood Pcp-Lab 1.2840.1 61853.1.1 3.104.2.7 .3.920418 .8 [id number] [facility] 2021-03-16 13:15:00 2021-03-16 13:15:00 Outpatient SALBADOR CRONIN [facility] [id number] [facility] 2021-03-16 12:00:00 2021-03-16 12:09:51 Outpatient SARA DELGADILLO KIMBERLY [facility] [id number] [facility] 2021-03-16 12:00:00 2021-03-16 12:09:51 Outpatient SARA DELGADILLO KIMBERLY [facility] [id number] [facility] 2021-03-16 12:00:00 2021-03-16 12:00:00 Outpatient SARA DELGADILLO KIMBERLY [facility] [id number] [facility] 2021-03-16 00:00:00 2021-03-16 00:00:00 Travel 1.2.840.1 18428.1.1 3.104.2.7 .3.086901 .8 1..840.114 350.1.13.10 4.2.7.3.698 084.8 [id number] [facility] 2021-03-16 00:00:00 2021-03-16 00:00:00 Travel 1.2.840.1 00096.1.1 3.104.2.7 .3.958295 .8 1.2.840.114 350.1.13.10 4.2.7.3.698 084.8 [id number] [facility] 2021-03-11 09:44:00 2021-03-11 13:06:00 Emergency X HALIMA CONNOR [facility] E[facility] [id number] [facility] 2021-03-11 09:44:00 2021-03-11 13:06:00 Emergency Halima Connor 1.2.840.1 84253.1.1 3.104.2.7 .3.131463 .8 [id number] [facility] 2021-03-11 09:44:00 2021-03-11 13:06:00 Emergency X HALIMA CONNOR [facility] ERT [id number] [facility] 2021-03-11 09:44:00 2021-03-11 13:06:00 Emergency Halima Connor 1.2.840.1 67612.1.1 3.104.2.7 .3.302120 .8 [id number] [facility] 2021-03-11 09:44:00 2021-03-11 13:06:00 Emergency X HALIMA CONNOR [facility] ERT [id number] [facility] 2021-03-11 09:44:00 2021-03-11 09:44:00 Emergency X HALIMA CONNOR [facility] ERT [id number] [facility] 2021-03-11 00:00:00 2021-03-11 00:00:00 Travel 1.2.840.1 58347.1.1 3.104.2.7 .3.009558 .8 1.2.840.114 350.1.13.10 4.2.7.3.698 084.8 [id number] [facility] 2021-03-11 00:00:00 2021-03-11 00:00:00 Travel 1.2.840.1 61047.1.1 3.104.2.7 .3.502212 .8 1.2.840.114 350.1.13.10 4.2.7.3.698 084.8 [id number] [facility] 2021-03-08 15:00:00 2021-03-08 15:15:00 Practice Billing Associate Visit Salbador Lockwood Pcp-Lab 1.2.840.1 95567.1.1 3.104.2.7 .3.708812 .8 [id number] [facility] 2021-03-08 15:00:00 2021-03-08 15:15:00 Practice Billing Associate Visit Salbador Lockwood Pcp-Lab 1.2.840.1 95581.1.1 3.104.2.7 .3.674059 .8 [id number] [facility] 2021-03-08 15:00:00 2021-03-08 15:00:00 Outpatient R SALBADOR LOCKWOOD [facility] [id number] [facility] 2021-01-31 10:15:00 2021-01-31 10:55:06 Outpatient R DEXTER DIAS [facility] [id number] [facility] 2020-12-29 08:00:00 2020-12-29 08:41:00 Outpatient R SELFDEXTER [facility] [id number] [facility] 2020-12-29 08:00:00 2020-12-29 08:41:00 Outpatient R SELFDEXTER [facility] [id number] [facility] 2020-12-29 00:00:00 2020-12-29 00:00:00 Travel 1.2.840.1 59864.1.1 3.104.2.7 .3.871767 .8 1.2.840.114 350.1.13.10 4.2.7.3.698 084.8 [id number] [facility] 2020-12-29 00:00:00 2020-12-29 00:00:00 Travel 1.2.840.1 60511.1.1 3.104.2.7 .3.422885 .8 1.2.840.114 350.1.13.10 4.2.7.3.698 084.8 [id number] [facility] 2020-12-22 09:30:00 2020-12-22 09:30:00 Outpatient R LARISSA [facility] [id number] [facility] 2020-12-22 09:30:00 2020-12-22 09:30:00 Outpatient R LARISSA [facility] [id number] [facility] 2020-11-26 00:00:00 2020-11-26 00:00:00 Orders Only Doctor Unassigned, [place] [facility] 1.2.840.114 350.1.13.10 4.2.7.2.686 [id number] [facility] 2020-11-10 09:30:00 2020-11-10 09:30:00 Outpatient R ROBERT NOWAK [facility] [id number] [facility] 2020-11-10 00:00:00 2020-11-10 00:00:00 Orders Only Doctor Unassigned, [place] 1.2.840.1 66068.1.1 3.104.2.7 .3.843284 .8 [id number] [facility] 2020-11-10 00:00:00 2020-11-10 00:00:00 Travel 1.2.840.1 43737.1.1 3.104.2.7 .3.288711 .8 1.2.840.114 350.1.13.10 4.2.7.3.698 084.8 [id number] [facility] 2020-10-11 08:00:00 2020-10-11 08:00:00 Outpatient R LARISSA [facility] [id number] [facility] 2020-10-11 00:00:00 2020-10-11 00:00:00 Travel 1.2.840.1 76802.1.1 3.104.2.7 .3.697216 .8 1.2.840.114 350.1.13.10 4.2.7.3.698 084.8 [id number] [facility] 2020-09-13 08:00:00 2020-09-13 08:00:00 Outpatient R SELF DEXTER [facility] [id number] [facility] 2020-09-13 00:00:00 2020-09-13 00:00:00 Travel 1.2.840.1 55680.1.1 3.104.2.7 .3.117446 .8 1.2.840.114 350.1.13.10 4.2.7.3.698 084.8 [id number] [facility] 2020-09-02 16:12:00 2020-09-02 20:21:00 Emergency Patti Rose [facility] 1.2.840.114 350.1.13.10 4.2.7.2.686 [id number] 2020-09-02 16:12:00 2020-09-02 20:21:00 Emergency Patti Rose 1.2.840.1 [id number] 3.104.2.7 .3.035882 .8 [id number] [facility] 2020-09-02 00:00:00 2020-09-02 00:00:00 Orders Only Doctor Unassigned, [place] [facility] 1.2.840.114 350.1.13.10 4.2.7.2.686 [id number] 2020-09-02 00:00:00 2020-09-02 00:00:00 Travel 1.2.840.1 [id number] 3.104.2.7 .3.579974 .8 1.2.840.114 350.1.13.10 4.2.7.3.698 [id number] [facility] 2020-09-02 00:00:00 2020-09-02 00:00:00 Orders Only Doctor Unassigned, [place] 1.2.840.1 24286.1.1 3.104.2.7 .3.040839 .8 [id number] [facility] 2020-08-25 09:15:00 2020-08-25 09:15:00 Outpatient R [facility] [id number] [facility] 2020-08-09 08:45:00 2020-08-09 08:45:00 Outpatient R DEXTER DIAS [facility] [id number] [facility] 2020-06-28 13:45:00 2020-06-28 13:45:00 Outpatient R SALBADOR LOCKWOOD [facility] [id number] [facility] 2020-06-21 15:15:00 2020-06-21 15:15:00 Outpatient R DEXTER DIAS [facility] [id number] [facility] 2020-06-07 08:45:00 2020-06-07 08:45:00 Outpatient R DEXTER DIAS [facility] [id number] [facility] 2020-05-25 08:30:00 2020-05-25 08:30:00 Outpatient R CRISTO MARTINEZ [facility] [id number] [facility] 2020-03-15 13:00:00 2020-03-15 13:00:00 Outpatient R SALBADOR LOCKWOOD [facility] [id number] [facility] 2020-03-08 13:00:00 2020-03-08 13:00:00 Outpatient R DEXTER DIAS [facility] [id number] [facility] 2020-02-16 11:00:00 2020-02-16 11:00:00 Outpatient R DEXTER DIAS [facility] [id number] [facility] 2020-01-27 11:45:00 2020-01-27 11:45:00 Outpatient R DEXTER DIAS [facility] [id number] [facility] 2020-01-19 08:00:00 2020-01-19 08:00:00 Outpatient R DEXTER DIAS [facility] [id number] [facility] 2019-12-22 08:45:00 2019-12-22 08:45:00 Outpatient R DEXTER DIAS [facility] [id number] [facility] 2019-12-05 10:45:00 2019-12-05 10:45:00 Outpatient JEWEL GR [facility] [id number] [facility] 2019-10-23 09:15:00 2019-10-23 09:15:00 Outpatient KATH GLORIA [facility] [id number] [facility] 2019-10-15 11:30:00 2019-10-15 11:30:00 Outpatient ROBERT MURILLO [facility] [id number] [facility] 2019-10-01 14:30:00 2019-10-01 14:30:00 Outpatient ROBERT MURILLO [facility] [id number] [facility] 2019-09-01 08:45:00 2019-09-01 08:45:00 Outpatient R DEXTER DIAS [facility] [id number] [facility] 2019-08-06 13:00:00 2019-08-06 13:00:00 Outpatient ANGELA HERRERA [facility] [id number] [facility] Results Test Description Test [...] caliber. The superior cerebellar arteriesare patent. The [employer] are patent bilaterally. No sizable posteriorcommunicating arteries are seen. The petrous, cavernous and supraclinoid internal carotid segments arewidely patent. The GIBSON and MCA are patent bilaterally. An anteriorcommunicating artery is seen. The dural venous sinuses are opacified and unremarkable. [facility] CT ACUTE STROKE ANGIOGRAM NECK 13:46:46 CT [...] caliber. The superior cerebellar arteriesare patent. The [employer] are patent bilaterally. No sizable posteriorcommunicating arteries are seen. The petrous, cavernous and supraclinoid internal carotid segments arewidely patent. The GIBSON and MCA are patent bilaterally. An anteriorcommunicating artery is seen. The dural venous sinuses are opacified and unremarkable. [facility] CT ACUTE STROKE ANGIOGRAM HEAD 13:46:46 CT [...] caliber. The superior cerebellar arteriesare patent. The [employer] are patent bilaterally. No sizable posteriorcommunicating arteries are seen. The petrous, cavernous and supraclinoid internal carotid segments arewidely patent. The GIBSON and MCA are patent bilaterally. An anteriorcommunicating artery is seen. The dural venous sinuses are opacified and unremarkable. [facility] CT ACUTE STROKE ANGIOGRAM NECK 13:46:46 CT [...] caliber. The superior cerebellar arteriesare patent. The [employer] are patent bilaterally. No sizable posteriorcommunicating arteries are seen. The petrous, cavernous and supraclinoid internal carotid segments arewidely patent. The GIBSON and MCA are patent bilaterally. An anteriorcommunicating artery is seen. The dural venous sinuses are opacified and unremarkable. [facility] CT ACUTE STROKE HEAD WO CONTRAST 13:44:48 [...] Thecalvarium and central skull base are unremarkable. [facility] CT ACUTE STROKE HEAD WO CONTRAST 13:44:48 [...] Thecalvarium and central skull base are unremarkable. [facility]2024-04-26 04:29:26* Test Item Value Reference Range Interpretation Comme nts [place] (test code = 1944988865) 0.6 mmol/L 0.6-1.2 ZAINAB (test code = ZAINAB) Toxic Range: ? Greater than 1.2 mmol/L Lab Interpretation (test code = 96365-3) Normal [facility]2024-04-26 04:29:26* Test Item Value Reference Range Interpretation Comme nts [place] (test code = 3049746005) 0.6 mmol/L 0.6-1.2 ZAINAB (test code = ZAINAB) Toxic Range: ? Greater than 1.2 mmol/L Lab Interpretation (test code = 38302-2) [address]04-26 04:29:26* Test Item Value Reference Range Interpretation Comme nts [place] (test code = 7312635285) 0.6 mmol/L 0.6-1.2 ZAINAB (test code = ZAINAB) Toxic Range: ? Greater than 1.2 mmol/L Lab Interpretation (test code = 09745-5) [address]04-26 04:29:26* Test Item Value Reference Range Interpretation Comme nts [place] (test code = 1485048860) 0.6 mmol/L 0.6-1.2 ZAINAB (test code = ZAINAB) Toxic Range: ? Greater than 1.2 mmol/L Lab Interpretation (test code = 42009-5) [address]04-26 04:29:26* Test Item Value Reference Range Interpretation Comme nts [place] (test code = 2080845971) 0.6 mmol/L 0.6-1.2 ZAINAB (test code = ZAINAB) Toxic Range: ? Greater than 1.2 mmol/L Lab Interpretation (test code = 25806-1) [address]04-26 04:29:26* Test Item Value Reference Range Interpretation Comme nts [place] (test code = 1943374473) 0.6 mmol/L 0.6-1.2 ZAINAB (test code = ZAINAB) Toxic Range: ? Greater than 1.2 mmol/L Lab Interpretation (test code = 20811-4) [address]04-26 04:29:26* Test Item Value Reference Range Interpretation Comme nts [place] (test code = 3978025485) 0.6 mmol/L 0.6-1.2 ZAINAB (test code = ZAINAB) Toxic Range: ? Greater than 1.2 mmol/L Lab Interpretation (test code = 23842-1) [address]04-26 04:29:26* Test Item Value Reference Range Interpretation Comme nts [place] (test code = 2406836950) 0.6 mmol/L 0.6-1.2 ZAINAB (test code = ZAINAB) Toxic Range: ? Greater than 1.2 mmol/L Lab Interpretation (test code = 88534-3) Normal [facility]2024-04-26 03:33:22 ALCOHOL<10mg/dL06/07/2023 10:33 PM CDTUTMB LABORATORY SERVICESToxic Greater than or equal to 80 mg/dL. NOTE: Whole blood values are approximately 10% to 15% lower than serum and plasma.[facility]2024-04-26 03:33:22ALCOHOL<10mg/dL06/07/2023 10:33 PM CDTUTMB LABORATORY SERVICESToxic Greater than or equal to 80 mg/dL. NOTE: Whole blood values are approximately 10% to 15% lower than serum and plasma.[facility] 2023-06-08 03:33:22ALCOHOL<10mg/dL06/07/2023 10:33 PM CDTUTMB LABORATORY SERVICESToxic Greater than or equal to 80 mg/dL. NOTE: Whole blood values are approximately 10% to 15% lower than serum and plasma.[facility]2024-04-26 03:33:22ALCOHOL<10mg/dL06/07/2023 10:33 PM CDTUTMB LABORATORY SERVICESToxic Greater than or equal to 80 mg/dL. NOTE: Whole blood values are approximately 10% to 15% lower than serum and plasma.[facility]2024-04-26 03:33:22ALCOHOL<10mg/dL06/07/2023 10:33 PM CDTUTMB LABORATORY SERVICESToxic Greater than or equal to 80 mg/dL. NOTE: Whole blood values are approximately 10% to 15% lower than serum and plasma. [facility]2024-04-26 03:33:22 ALCOHOL<10mg/dL06/07/2023 10:33 PM CDTUTMB LABORATORY SERVICESToxic Greater than or equal to 80 mg/dL. NOTE: Whole blood values are approximately 10% to 15% lower than serum and plasma.[facility]2024-04-26 03:33:22ALCOHOL<10mg/dL06/07/2023 10:33 PM CDTUTMB LABORATORY SERVICESToxic Greater than or equal to 80 mg/dL. NOTE: Whole blood values are approximately 10% to 15% lower than serum and plasma.[facility] 2023-06-08 03:33:22ALCOHOL<10mg/dL06/07/2023 10:33 PM [facility] LAB[facility]ATORY SERVICESToxic Greater than or equal to 80 mg/dL. NOTE: Whole blood values are approximately 10% to 15% lower than serum and plasma.[facility]2024-04-26 03:33:22ALCOHOL<10mg/dL06/07/2023 10:33 PM CDTUT LABORATORY SERVICESToxic Greater than or equal to 80 mg/dL. NOTE: Whole blood values are approximately 10% to 15% lower than serum and plasma.[facility] I - Code Bpxtxm8318-08-50 03:15:34* Test Item Value Reference Range Interpretation Comme nts [place] I (test code = 6756004196) 0.003 ng/mL <=0.034 ZAINAB (test code = [...] of biotin. Lab Interpretation (test code = 24925-8) Normal [facility] I - Code Obtomr1860-66-67 03:15:34* Test Item Value Reference Range Interpretation Comme nts [place] I (test code = 2082276538) 0.003 ng/mL <=0.034 ZAINAB (test code = [...] of biotin. Lab Interpretation (test code = 27326-3) Normal [facility] I - Code Gzsnrr3061-38-27 03:15:34* Test Item Value Reference Range Interpretation Comme nts [place] I (test code = 2008195439) 0.003 ng/mL <=0.034 ZAINAB (test code = [...] of biotin. Lab Interpretation (test code = 53263-2) Normal [facility] I - Code Lizruw1343-89-51 03:15:34* Test Item Value Reference Range Interpretation Comme nts [place] I (test code = 3445168616) 0.003 ng/mL <=0.034 ZAINAB (test code = [...] of biotin. Lab Interpretation (test code = 16153-0) Normal [facility] I - Code Ocdoxn9139-74-79 03:15:34* Test Item Value Reference Range Interpretation Comme nts [place] I (test code = 2522557255) 0.003 ng/mL <=0.034 ZAINAB (test code = [...] of biotin. Lab Interpretation (test code = 27501-7) Normal [facility] I - Code Sueqqw0829-93-66 03:15:34* Test Item Value Reference Range Interpretation Comme nts [place] I (test code = 0338400258) 0.003 ng/mL <=0.034 [place]AIN[place] (test code = [...] of biotin. Lab Interpretation (test code = 13823-8) Normal [facility] I - Code Tbhjrg7568-62-13 03:15:34* Test Item Value Reference Range Interpretation Comme nts [place] I (test code = 4276833018) 0.003 ng/mL <=0.034 ZAINAB (test code = [...] of biotin. Lab Interpretation (test code = 85844-1) Normal [facility] I - Code Pzcano1560-99-75 03:15:34* Test Item Value Reference Range Interpretation Comme nts [place] I (test code = 4152733981) 0.003 ng/mL <=0.034 ZAINAB (test code = [...] of biotin. Lab Interpretation (test code = 19626-7) Normal [facility] I - Code Fkdzht9209-27-79 03:15:34* Test Item Value Reference Range Interpretation Comme nts [place] I (test code = 9918344656) 0.003 ng/mL <=0.034 ZAINAB (test code = [...] of biotin. Lab Interpretation (test code = 10394-8) Normal [facility] Metabolic Panel (NA, K, CL, CO2, Glucose, BUN, Creatinine, CA) - Code Uowtau5234-68-23 03:03:47* Test Item Value Reference Range Interpretation Comme nts NA (test code = 1642224479) 135 mmol/L 135-145 K (test code = 4704498832) 4.3 mmol/L 3.5-5.0 CL (test code = 7262209189) 103 mmol/L 98-108 CO2 TOTAL (test code = 8296971748) 28 mmol/L 23-31 AGAP (test code = 7480524494) 4 2-16 BUN (test code = 8987635481) 11 mg/dL 7-23 GLUCOSE (test code = 4131612259) 120 mg/dL 70-110 H CREATININE (test code = 2160-0) 0.71 mg/dL 0.50-1.04 CALCIUM (test code = 6254911168) 9.3 mg/dL 8.6-10.6 eGFR (test code = 71478-2) 107.0 mL/min/1.73m2 CKD-EPI eGFR (2020). Assuming creatinine has been stable day-to-day for at least three months, the eGFR indicates Category G1 (>= 90 mL/min/1.73 m2) Lab Interpretation (test code = 46425-2) Abnormal [facility] Metabolic Panel (NA, K, CL, CO2, Glucose, BUN, Creatinine, CA) - Code Vbsaya0916-14-85 03:03:47* Test Item Value Reference Range Interpretation Comme nts NA (test code = 2563137461) 135 mmol/L 135-145 K (test code = 0810870356) 4.3 mmol/L 3.5-5.0 CL (test code = 4550485324) 103 mmol/L 98-108 CO2 TOTAL (test code = 3991322778) 28 mmol/L 23-31 AGAP (test code = 7697861571) 4 2-16 BUN (test code = 7364310648) 11 mg/dL 7-23 GLUCOSE (test code = 4195179960) 120 mg/dL 70-110 H CREATININE (test code = 2160-0) 0.71 mg/dL 0.50-1.04 CALCIUM (test code = 4455295730) 9.3 mg/dL 8.6-10.6 eGFR (test code = 44551-5) 107.0 mL/min/1.73m2 CKD-EPI eGFR (2020). Assuming creatinine has been stable day-to-day for at least three months, the eGFR indicates Category G1 (>= 90 mL/min/1.73 m2) Lab Interpretation (test code = 29314-1) Abnormal [facility] Metabolic Panel (NA, K, CL, CO2, Glucose, BUN, Creatinine, CA) - Code Eteeqk0317-75-39 03:03:47* Test Item Value Reference Range Interpretation Comme nts NA (test code = 1794486486) 135 mmol/L 135-145 K (test code = 0331649925) 4.3 mmol/L 3.5-5.0 CL (test code = 1921642549) 103 mmol/L 98-108 CO2 TOTAL (test code = 9408497370) 28 mmol/L 23-31 AGAP (test code = 9175468040) 4 2-16 BUN (test code = 3165829062) 11 mg/dL 7-23 GLUCOSE (test code = 3654852445) 120 mg/dL 70-110 H CREATININE (test code = 2160-0) 0.71 mg/dL 0.50-1.04 CALCIUM (test code = 5400834628) 9.3 mg/dL 8.6-10.6 eGFR (test code = 33850-4) 107.0 mL/min/1.73m2 CKD-EPI eGFR (2020). Assuming creatinine has been stable day-to-day for at least three months, the eGFR indicates Category G1 (>= 90 mL/min/1.73 m2) Lab Interpretation (test code = 21864-0) Abnormal [facility] Metabolic Panel (NA, K, CL, CO2, Glucose, BUN, Creatinine, CA) - Code Obkxug0522-68-06 03:03:47* Test Item Value Reference Range Interpretation Comme nts NA (test code = 7674306757) 135 mmol/L 135-145 K (test code = 5627388655) 4.3 mmol/L 3.5-5.0 CL (test code = 4008188834) 103 mmol/L 98-108 CO2 TOTAL (test code = 1413387678) 28 mmol/L 23-31 AGAP (test code = 1696526907) 4 2-16 BUN (test code = 8370443252) 11 mg/dL 7-23 GLUCOSE (test code = 3091121427) 120 mg/dL 70-110 H CREATININE (test code = 2160-0) 0.71 mg/dL 0.50-1.04 CALCIUM (test code = 7464921299) 9.3 mg/dL 8.6-10.6 eGFR (test code = 16614-6) 107.0 mL/min/1.73m2 CKD-EPI eGFR (2020). Assuming creatinine has been stable day-to-day for at least three months, the eGFR indicates Category G1 (>= 90 mL/min/1.73 m2) Lab Interpretation (test code = 38526-1) Abnormal [facility] Metabolic Panel (NA, K, CL, CO2, Glucose, BUN, Creatinine, CA) - Code Vyhanc6054-00-25 03:03:47* Test Item Value Reference Range Interpretation Comme nts NA (test code = 3742216863) 135 mmol/L 135-145 K (test code = 5097587432) 4.3 mmol/L 3.5-5.0 CL (test code = 5701296610) 103 mmol/L 98-108 CO2 TOTAL (test code = 0097549905) 28 mmol/L 23-31 AGAP (test code = 4490116622) 4 2-16 BUN (test code = 8959794772) 11 mg/dL 7-23 GLUCOSE (test code = 5765367051) 120 mg/dL 70-110 H CREATININE (test code = 2160-0) 0.71 mg/dL 0.50-1.04 CALCIUM (test code = 7819652249) 9.3 mg/dL 8.6-10.6 eGFR (test code = 92678-8) 107.0 mL/min/1.73m2 CKD-EPI eGFR (2020). Assuming creatinine has been stable day-to-day for at least three months, the eGFR indicates Category G1 (>= 90 mL/min/1.73 m2) Lab Interpretation (test code = 23051-4) Abnormal [facility] Metabolic Panel (NA, K, CL, CO2, Glucose, BUN, Creatinine, CA) - Code Mxguvp0488-66-32 03:03:47* Test Item Value Reference Range Interpretation Comme nts NA (test code = 2131216664) 135 mmol/L 135-145 K (test code = 8842516708) 4.3 mmol/L 3.5-5.0 CL (test code = 3249850123) 103 mmol/L 98-108 CO2 TOTAL (test code = 3542495771) 28 mmol/L 23-31 AGAP (test code = 8511873756) 4 2-16 BUN (test code = 2233362346) 11 mg/dL 7-23 GLUCOSE (test code = 4721544695) 120 mg/dL 70-110 H CREATININE (test code = 2160-0) 0.71 mg/dL 0.50-1.04 CALCIUM (test code = 5776861077) 9.3 mg/dL 8.6-10.6 eGFR (test code = 66384-4) 107.0 mL/min/1.73m2 CKD-EPI eGFR (2020). Assuming creatinine has been stable day-to-day for at least three months, the eGFR indicates Category G1 (>= 90 mL/min/1.73 m2) Lab Interpretation (test code = 09020-3) Abnormal [facility] Metabolic Panel (NA, K, CL, CO2, Glucose, BUN, Creatinine, CA) - Code Ysjwzj3447-97-67 03:03:47* Test Item Value Reference Range Interpretation Comme nts NA (test code = 1606605467) 135 mmol/L 135-145 K (test code = 1024637415) 4.3 mmol/L 3.5-5.0 CL (test code = 5731769410) 103 mmol/L 98-108 CO2 TOTAL (test code = 0091718223) 28 mmol/L 23-31 AGAP (test code = 8293150078) 4 2-16 BUN (test code = 3790006744) 11 mg/dL 7-23 GLUCOSE (test code = 5174592465) 120 mg/dL 70-110 H CREATININE (test code = 2160-0) 0.71 mg/dL 0.50-1.04 CALCIUM (test code = 0888527746) 9.3 mg/dL 8.6-10.6 eGFR (test code = 96229-7) 107.0 mL/min/1.73m2 CKD-EPI eGFR (2020). Assuming creatinine has been stable day-to-day for at least three months, the eGFR indicates Category G1 (>= 90 mL/min/1.73 m2) Lab Interpretation (test code = 72078-1) Abnormal [facility] Metabolic Panel (NA, K, CL, CO2, Glucose, BUN, Creatinine, CA) - Code Kuesru1875-53-40 03:03:47* Test Item Value Reference Range Interpretation Comme nts NA (test code = 3599973924) 135 mmol/L 135-145 K (test code = 5074909919) 4.3 mmol/L 3.5-5.0 CL (test code = 8617740087) 103 mmol/L 98-108 CO2 TOTAL (test code = 7430549847) 28 mmol/L 23-31 AGAP (test code = 1274455934) 4 2-16 BUN (test code = 5532870935) 11 mg/dL 7-23 GLUCOSE (test code = 1059789075) 120 mg/dL 70-110 H CREATININE (test code = 2160-0) 0.71 mg/dL 0.50-1.04 CALCIUM (test code = 7089216151) 9.3 mg/dL 8.6-10.6 eGFR (test code = 46286-1) 107.0 mL/min/1.73m2 CKD-EPI eGFR (2020). Assuming creatinine has been stable day-to-day for at least three months, the eGFR indicates Category G1 (>= 90 mL/min/1.73 m2) Lab Interpretation (test code = 94811-6) Abnormal [facility] Metabolic Panel (NA, K, CL, CO2, Glucose, BUN, Creatinine, CA) - Code Wiklbu1041-00-22 03:03:47* Test Item Value Reference Range Interpretation Comme nts NA (test code = 0855669733) 135 mmol/L 135-145 K (test code = 1783605823) 4.3 mmol/L 3.5-5.0 CL (test code = 0893725252) 103 mmol/L 98-108 CO2 TOTAL (test code = 9331082771) 28 mmol/L 23-31 AGAP (test code = 8814846365) 4 2-16 BUN (test code = 9653252171) 11 mg/dL 7-23 GLUCOSE (test code = 1984837220) 120 mg/dL 70-110 H CREATININE (test code = 2160-0) 0.71 mg/dL 0.50-1.04 CALCIUM (test code = 8825153541) 9.3 mg/dL 8.6-10.6 eGFR (test code = 02860-5) 107.0 mL/min/1.73m2 CKD-EPI eGFR (2020). Assuming creatinine has been stable day-to-day for at least three months, the eGFR indicates Category G1 (>= 90 mL/min/1.73 m2) Lab Interpretation (test code = 41254-1) [facility] - Code Mpoyns4720-97-64 03:00:48* Test Item Value Reference Range Interpretation Comme [facility] PROTIME PATIENT (test code = 5964-2) 10.4 10.1-12.6 INR (test code = 6301-6) 0.9 Normal INR <1.1; Warfarin Therapeutic range 2.0 to 3.0 or 2.5 to 3.5, depending upon the indications. Lab Interpretation (test code = 33699-5) Normal [facility] - Code Xjolci0118-43-37 03:00:48* Test Item Value Reference Range Interpretation Comme [facility] PROTIME PATIENT (test code = 5964-2) 10.4 10.1-12.6 INR (test code = 6301-6) 0.9 Normal INR <1.1; Warfarin Therapeutic range 2.0 to 3.0 or 2.5 to 3.5, depending upon the indications. Lab Interpretation (test code = 04340-1) Normal [facility] - Code Dtihvf3588-28-55 03:00:48* Test Item Value Reference Range Interpretation Comme [facility] PROTIME PATIENT (test code = 5964-2) 10.4 10.1-12.6 INR (test code = 6301-6) 0.9 Normal INR <1.1; Warfarin Therapeutic range 2.0 to 3.0 or 2.5 to 3.5, depending upon the indications. Lab Interpretation (test code = 08693-7) Normal [facility] - Code Rdlgpd0838-15-86 03:00:48* Test Item Value Reference Range Interpretation Comme nts PROTIME PATIENT (test code = 5964-2) 10.4 10.1-12.6 INR (test code = 6301-6) 0.9 Normal INR <1.1; Warfarin Therapeutic range 2.0 to 3.0 or 2.5 to 3.5, depending upon the indications. Lab Interpretation (test code = 85840-8) Normal [facility] - Code Vtimql7046-41-09 03:00:48* Test Item Value Reference Range Interpretation Comme nts PROTIME PATIENT (test code = 5964-2) 10.4 10.1-12.6 INR (test code = 6301-6) 0.9 Normal INR <1.1; Warfarin Therapeutic range 2.0 to 3.0 or 2.5 to 3.5, depending upon the indications. Lab Interpretation (test code = 33874-8) Normal [facility] - Code Kvditv7643-23-10 03:00:48* Test Item Value Reference Range Interpretation Comme nts PROTIME PATIENT (test code = 5964-2) 10.4 10.1-12.6 INR (test code = 6301-6) 0.9 Normal INR <1.1; Warfarin Therapeutic range 2.0 to 3.0 or 2.5 to 3.5, depending upon the indications. Lab Interpretation (test code = 71172-0) Normal [facility] - Code Cyudlr3103-77-22 03:00:48* Test Item Value Reference Range Interpretation Comme nts PROTIME PATIENT (test code = 5964-2) 10.4 10.1-12.6 INR (test code = 6301-6) 0.9 Normal INR <1.1; Warfarin Therapeutic range 2.0 to 3.0 or 2.5 to 3.5, depending upon the indications. Lab Interpretation (test code = 29005-8) Normal [facility] - Code Kqhyif4430-77-38 03:00:48* Test Item Value Reference Range Interpretation Comme nts PROTIME PATIENT (test code = 5964-2) 10.4 10.1-12.6 INR (test code = 6301-6) 0.9 Normal INR <1.1; Warfarin Therapeutic range 2.0 to 3.0 or 2.5 to 3.5, depending upon the indications. Lab Interpretation (test code = 49130-7) Normal [facility] - Code Rlhmsj4917-37-93 03:00:48* Test Item Value Reference Range Interpretation Comme nts PROTIME PATIENT (test code = 5964-2) 10.4 10.1-12.6 INR (test code = 6301-6) 0.9 Normal INR <1.1; Warfarin Therapeutic range 2.0 to 3.0 or 2.5 to 3.5, depending upon the indications. Lab Interpretation (test code = 53581-9) Normal [facility] - Code Udjcsx3408-14-09 03:00:47* Test Item Value Reference Range Interpretation Comme nts APTT Patient (test code = 3173-2) -36 Lab Interpretation (test cod e = 84630-3) Normal [facility] - Code Dgojou9920-48-86 03:00:47* Test Item Value Reference Range Interpretation Comme nts APTT Patient (test code = 3173-2) -36 Lab Interpretation (test cod e = 16708-7) Normal [facility] - Code Xyotid2654-40-33 03:00:47* Test Item Value Reference Range Interpretation Comme nts APTT Patient (test code = 3173-2) -36 Lab Interpretation (test cod e = 33998-5) Normal [facility] - Code Frwerd6119-98-31 03:00:47* Test Item Value Reference Range Interpretation Comme nts APTT Patient (test code = 3173-2) -36 Lab Interpretation (test cod e = 38083-5) Normal [facility] - Code Rghxom0065-68-26 03:00:47* Test Item Value Reference Range Interpretation Comme nts APTT Patient (test code = 3173-2) -36 Lab Interpretation (test cod e = 31044-6) Normal [facility] - Code Guvoeu7585-23-55 03:00:47* Test Item Value Reference Range Interpretation Comme nts APTT Patient (test code = 3173-2) 36 Lab Interpretation (test cod e = 29614-3) Normal [facility] - Code Zswolf4377-54-71 03:00:47* Test Item Value Reference Range Interpretation Comme nts APTT Patient (test code = 3173-2) 36 Lab Interpretation (test cod e = 48642-4) Normal [facility] - Code Palkos0003-54-52 03:00:47* Test Item Value Reference Range Interpretation Comme nts APTT Patient (test code = 3173-2) 36 Lab Interpretation (test cod e = 21478-0) Normal [facility] - Code Iealul1921-73-43 03:00:47* Test Item Value Reference Range Interpretation Comme nts APTT Patient (test code = 3173-2) 36 Lab Interpretation (test cod e = 67258-4) Normal [facility] acute hospital without Diff - Code Kehsux2950-57-24 02:52:09* Test Item Value Reference Range Interpretation [...] 367 166-358 H MPV (test code = 37557-7) 11.3 fL 9.5-12.9 RDW-CV (test code = 788-0) 15.4 % 12.0-15.5 RDW-SD (test code = 50582-7) 43.8 fL 39.0-49.9 NRBC x10^3 (test code = 7125254572) See_Comment [Automated [employer] i'mma] The system which generated this result transmitted reference range: 10*3/?L. The reference range was not used to interpret this result as normal/abnormal. NRBC/100 WBC (test code = 1103392916) 0.0 0.0-10.0 IPF % (test code = 1331318122) Lab Interpretation (test code = 68781-3) Abnormal [facility] acute hospital without Diff - Code Gsscwa0574-07-17 02:52:09* Test Item Value Reference Range Interpretation [...] 367 166-358 H MPV (test code = 33301-7) 11.3 fL 9.5-12.9 RDW-CV (test code = 788-0) 15.4 % 12.0-15.5 RDW-SD (test code = 89277-4) 43.8 fL 39.0-49.9 NRBC x10^3 (test code = 4370882938) See_Comment [Automated [employer] ge] The system which generated this result transmitted reference range: 10*3/?L. The reference range was not used to interpret this result as normal/abnormal. NRBC/100 WBC (test code = 2254280043) 0.0 0.0-10.0 IPF % (test code = 4479183215) Lab Interpretation (test code = 37752-6) Abnormal General acute hospital without Diff - Code Hddfin2458-17-21 02:52:09* Test Item Value Reference Range Interpretation [...] 367 166-358 H MPV (test code = 47613-3) 11.3 fL 9.5-12.9 RDW-CV (test code = 788-0) 15.4 % 12.0-15.5 RDW-SD (test code = 56290-6) 43.8 fL 39.0-49.9 NRBC x10^3 (test code = 5469369620) See_Comment [Automated [employer] ge] The system which generated this result transmitted reference range: 10*3/?L. The reference range was not used to interpret this result as normal/abnormal. NRBC/100 WBC (test code = 4910298031) 0.0 0.0-10.0 IPF % (test code = 2596967551) Lab Interpretation (test code = 29256-3) Abnormal General acute hospital without Diff - Code Jkmufs4223-81-16 02:52:09* Test Item Value Reference Range Interpretation [...] 367 166-358 H MPV (test code = 77345-0) 11.3 fL 9.5-12.9 RDW-CV (test code = 788-0) 15.4 % 12.0-15.5 RDW-SD (test code = 79486-5) 43.8 fL 39.0-49.9 NRBC x10^3 (test code = 9950460026) See_Comment [Automated messa ge] The system which generated this result transmitted reference range: 10*3/?L. The reference range was not used to interpret this result as normal/abnormal. NRBC/100 WBC (test code = 9647705768) 0.0 0.0-10.0 IPF % (test code = 7514410009) Lab Interpretation (test code = 67307-2) Abnormal General acute hospital without Diff - Code Ywzgkm7228-33-40 02:52:09* Test Item Value Reference Range Interpretation [...] 367 166-358 H MPV (test code = 15069-7) 11.3 fL 9.5-12.9 RDW-CV (test code = 788-0) 15.4 % 12.0-15.5 RDW-SD (test code = 42090-2) 43.8 fL 39.0-49.9 NRBC x10^3 (test code = 4603232150) See_Comment [Automated [employer] ge] The system which generated this result transmitted reference range: 10*3/?L. The reference range was not used to interpret this result as normal/abnormal. NRBC/100 WBC (test code = 4475609005) 0.0 0.0-10.0 IPF % (test code = 0338751786) Lab Interpretation (test code = 89671-7) Abnormal General acute hospital without Diff - Code Ohswko3586-72-81 02:52:09* Test Item Value Reference Range Interpretation [...] 367 166-358 H MPV (test code = 05315-5) 11.3 fL 9.5-12.9 RDW-CV (test code = 788-0) 15.4 % 12.0-15.5 RDW-SD (test code = 00146-9) 43.8 fL 39.0-49.9 NRBC x10^3 (test code = 4580636602) See_Comment [Automated [employer] ge] The system which generated this result transmitted reference range: 10*3/?L. The reference range was not used to interpret this result as normal/abnormal. NRBC/100 WBC (test code = 0311316906) 0.0 0.0-10.0 IPF % (test code = 6301662174) Lab Interpretation (test code = 75637-0) Abnormal General acute hospital without Diff - Code Jxykha4309-13-12 02:52:09* Test Item Value Reference Range Interpretation [...] 367 166-358 H MPV (test code = 45260-7) 11.3 fL 9.5-12.9 RDW-CV (test code = 788-0) 15.4 % 12.0-15.5 RDW-SD (test code = 57013-4) 43.8 fL 39.0-49.9 NRBC x10^3 (test code = 3181745694) See_Comment [Automated messa ge] The system which generated this result transmitted reference range: 10*3/?L. The reference range was not used to interpret this result as normal/abnormal. NRBC/100 WBC (test code = 4121009983) 0.0 0.0-10.0 IPF % (test code = 7695812031) Lab Interpretation (test code = 79482-3) Abnormal General acute hospital without Diff - Code Hytlnc1005-34-34 02:52:09* Test Item Value Reference Range Interpretation [...] 367 166-358 H MPV (test code = 00776-0) 11.3 fL 9.5-12.9 RDW-CV (test code = 788-0) 15.4 % 12.0-15.5 RDW-SD (test code = 67638-5) 43.8 fL 39.0-49.9 NRBC x10^3 (test code = 4107480382) See_Comment [Automated messa ge] The system which generated this result transmitted reference range: 10*3/?L. The reference range was not used to interpret this result as normal/abnormal. NRBC/100 WBC (test code = 7122494986) 0.0 0.0-10.0 IPF % (test code = 7543113579) Lab Interpretation (test code = 20863-3) Abnormal General acute hospital without Diff - Code Dynibn9742-77-72 02:52:09* Test Item Value Reference Range Interpretation [...] 367 166-358 H MPV (test code = 92799-5) 11.3 fL 9.5-12.9 RDW-CV (test code = 788-0) 15.4 % 12.0-15.5 RDW-SD (test code = 78803-8) 43.8 fL 39.0-49.9 NRBC x10^3 (test code = 8807211439) See_Comment [Automated messa ge] The system which generated this result transmitted reference range: 10*3/?L. The reference range was not used to interpret this result as normal/abnormal. NRBC/100 WBC (test code = 3226535657) 0.0 0.0-10.0 IPF % (test code = 5739749844) Lab Interpretation (test code = 69320-8) [facility] >30 [facility] Code Stroke 2023-06-08 02:39:00* Test Item Value Reference Range Interpretation Comme nts POCT Glu (age>30days) (test code = 3342) 124 mg/dL 70-110 A Lab Interpretation (test cod e = 45226-3) [facility] >30 Days[facility] - Code Stroke 2023-06-08 02:39:00* Test Item Value Reference Range Interpretation Comme nts POCT Glu (age>30days) (test code = 3342) 124 mg/dL 70-110 A Lab Interpretation (test cod e = 82934-3) [facility] >30 Days[facility] - Code Stroke 2023-06-08 02:39:00* Test Item Value Reference Range Interpretation Comme nts POCT Glu (age>30days) (test code = 3342) 124 mg/dL 70-110 A Lab Interpretation (test cod e = 93328-6) [facility] >30 Days[facility] - Code Stroke 2023-06-08 02:39:00* Test Item Value Reference Range Interpretation Comme nts POCT Glu (age>30days) (test code = 3342) 124 mg/dL 70-110 A Lab Interpretation (test cod e = 91629-6) [facility] >30 Days[facility] - Code Stroke 2023-06-08 02:39:00* Test Item Value Reference Range Interpretation Comme nts POCT Glu (age>30days) (test code = 3342) 124 mg/dL 70-110 A Lab Interpretation (test cod e = 40044-8) [facility] St[facility] 2023-06-08 02:39:00* Test Item Value Reference Range Interpretation Comme nts POCT Glu (age>30days) (test code = 3342) 124 mg/dL 70-110 A Lab Interpretation (test cod e = 26912-0) [facility] >30 Days[facility] Code Stroke 2023-06-08 02:39:00* Test Item Value Reference Range Interpretation Comme nts POCT Glu (age>30days) (test code = 3342) 124 mg/dL 70-110 A Lab Interpretation (test cod e = 89006-3) [facility]Age >30 Days[facility] - Code Stroke 2023-06-08 02:39:00* Test Item Value Reference Range Interpretation Comme nts POCT Glu (age>30days) (test code = 3342) 124 mg/dL 70-110 A Lab Interpretation (test cod e = 88784-9) [facility]Age >30 Days[facility] - Code Stroke 2023-06-08 02:39:00* Test Item Value Reference Range Interpretation Comme nts POCT Glu (age>30days) (test code = 3342) 124 mg/dL 70-110 A Lab Interpretation (test cod e = 20069-0) [facility] Hznad7793-29-59 19:59:01* Test Item Value Reference Range Interpretation Comme nts FERRITIN (test code = 3304854606) 22.4 ng/mL 6.0-137.0 ZAINAB (test code = ZAINAB) Biotin has been reported to cause a negative bias, interpret results relative to patient's use of biotin. Lab Interpretation (test code = 38633-6) Normal [facility] Umxxq0997-13-12 19:59:01* Test Item Value Reference Range Interpretation Comme nts FERRITIN (test code = 1202069822) 22.4 ng/mL 6.0-137.0 ZAINAB (test code = ZAINAB) Biotin has been reported to cause a negative bias, interpret results relative to patient's use of biotin. Lab Interpretation (test code = 50540-9) [facility] Zxyiz5228-68-37 19:59:01* Test Item Value Reference Range Interpretation Comme nts FERRITIN (test code = 4187917500) 22.4 ng/mL 6.0-137.0 ZAINAB (test code = ZAINAB) Biotin has been reported to cause a negative bias, interpret results relative to patient's use of biotin. Lab Interpretation (test code = 68171-8) Normal [facility] Xhybi5001-38-84 19:59:01* Test Item Value Reference Range Interpretation Comme nts FERRITIN (test code = 1353569576) 22.4 ng/mL 6.0-137.0 ZAINAB (test code = ZAINAB) Biotin has been reported to cause a negative bias, interpret results relative to patient's use of biotin. Lab Interpretation (test code = 82406-2) Normal [facility] Faypj9172-00-20 19:59:01* Test Item Value Reference Range Interpretation Comme nts FERRITIN (test code = 1013445666) 22.4 ng/mL 6.0-137.0 ZAINAB (test code = ZAINAB) Biotin has been reported to cause a negative bias, interpret results relative to patient's use of biotin. Lab Interpretation (test code = 48799-8) Normal [facility] Teltv2304-48-30 19:59:01* Test Item Value Reference Range Interpretation Comme nts FERRITIN (test code = 4959967279) 22.4 ng/mL 6.0-137.0 ZAINAB (test code = ZAINAB) Biotin has been reported to cause a negative bias, interpret results relative to patient's use of biotin. Lab Interpretation (test code = 58876-3) Normal [facility] Nfiqs5309-64-60 19:30:52* Test Item Value Reference Range Interpretation Comme nts IRON (test code = 5407999653) 54 ug/dL 50-160 TIBC (test code = 1869800360) 434 ug/dL 250-410 H % FE SAT (test code = 7812358923) 12 % 20-50 L Lab Interpretation (test cod e = 21719-4) Abnormal [facility] Haidf0542-75-65 19:30:52* Test Item Value Reference Range Interpretation Comme nts IRON (test code = 0467485599) 54 ug/dL 50-160 TIBC (test code = 1051708148) 434 ug/dL 250-410 H % FE SAT (test code = 1471833927) 12 % 20-50 L Lab Interpretation (test cod e = 98633-0) Abnormal [facility] Oghie6777-01-20 19:30:52* Test Item Value Reference Range Interpretation Comme nts IRON (test code = 5629800022) 54 ug/dL 50-160 TIBC (test code = 4623559634) 434 ug/dL 250-410 H % FE SAT (test code = 1660223876) 12 % 20-50 L Lab Interpretation (test cod e = 26513-6) Abnormal [facility] Cmjcf7882-40-46 19:30:52* Test Item Value Reference Range Interpretation Comme nts IRON (test code = 2338223607) 54 ug/dL 50-160 TIBC (test code = 5926751615) 434 ug/dL 250-410 H % FE SAT (test code = 1878973657) 12 % 20-50 L Lab Interpretation (test cod e = 63081-2) Abnormal [facility] Lleif5075-35-26 19:30:52* Test Item Value Reference Range Interpretation Comme nts IRON (test code = 9858331070) 54 ug/dL 50-160 TIBC (test code = 4523186590) 434 ug/dL 250-410 H % FE SAT (test code = 4603874212) 12 % 20-50 L Lab Interpretation (test cod e = 84511-3) Abnormal [facility] Mzzop8783-20-37 19:30:52* Test Item Value Reference Range Interpretation Comme nts IRON (test code = 3435495348) 54 ug/dL 50-160 TIBC (test code = 8408340375) 434 ug/dL 250-410 H % FE SAT (test code = 3578684755) 12 % 20-50 L Lab Interpretation (test cod e = 26421-7) Abnormal [facility]2023-12-11 20:01:05* Test Item Value Reference Range Interpretation Comme nts [place] (test code = 5426417082) 0.5 mmol/L 0.6-1.2 L ZAINAB (test code = ZAINAB) Toxic Range: ? Greater than 1.2 mmol/L Lab Interpretation (test code = 47195-9) Abnormal [facility]2023-12-11 20:01:05* Test Item Value Reference Range Interpretation Comme nts [place] (test code = 9797847932) 0.5 mmol/L 0.6-1.2 L ZAINAB (test code = ZAINAB) Toxic Range: ? Greater than 1.2 mmol/L Lab Interpretation (test code = 57783-2) Abnormal [facility]2023-12-11 20:01:05* Test Item Value Reference Range Interpretation Comme nts [place] (test code = 5473767463) 0.5 mmol/L 0.6-1.2 L ZAINAB (test code = ZAINAB) Toxic Range: ? Greater than 1.2 mmol/L Lab Interpretation (test code = 37282-4) [facility] [id number] 19:23:05* Test Item Value Reference Range Interpretation Comme nts Case Report (test code = 1356655800) Surgical Pathology ?Case: [id number] ? Authorizing Provider: ?Dominic Keita MD ? [...] HPylori ? Final Diagnosis (test code = 6713418577) [id number] FuZzEwMzNcZnRuYmpcdWMx WAhscgByJSxmjXrcYNT0SL NjML8gmWtafAe9kAjlMAIj guK7qSJbIDarj0wyKSW3k2 ddjdmxYWBjGGnkLw3sdLFo qMfiAsXwOSGvMUn2hL81KJ YprF0uzQWtTAv3GKStuHVe xhTeSlMoFGAnkJNclNM8OR AfZG2xjyzbJUcnZGoiZFLv dkL5SNVnhZDdZ1KwVDLkOE 6qqynsIGR6TZmzWEXuBFQ5 RpJxKFEku2Tobdj7FcXtlS FyZFxwbGFpblxmczIwXHBh jqPXQoUNVA3MTZTNKTWMP7 bARZWKOI3DGHKCCvqzwLQp WLSgBFHjWANRZD7QXBUiZ9 pIGnJvRD2QKKHfSIXycJBs GUJrjwGYQsSKAR8TID6FZC wgQklPUFNZOlxwYXIgICAg ZDDyINtIX7NZDXZaENSEV2 TFGUoBBAbzHf8uMZDSEV7R I1zCT9EWCJMMII7WDJogRP ZpKSXsWMOqKK4KPBvrUWDQ RB9RYVTDSCLRSDzFOIREBV TCEFsMVNLVW7VAZUdSRGXb lgaxFIGjTg7eG5XPYGAAKY wgQklPUFNZOlxwYXIgICAg ROIkUARJT4YMLeUDDJ8BU3 2GHQHSSQTHJJ6YPUBKDUqK YF5GWCOJZXUILGHFN1CerA FyICAgICAgLSBOTyBFVklE SM3RKYLVLySNIPnKBJQwFJ lTRUFTRVxwYXIgICAgICAt FL9KOXqcACKCDT7XKSFSTm dBTklTTVMgSURFTlRJRklF LXVBJHYRYH1AHe9BQSRYBq xwYXJccGFyfXtccnRmMVxz f3XyG5LxJiDlREoxbqZvKN QdUfkgeqqjREKtDJC4bqWp SAVlKChqFOKdJCrhTc6cbC AgkCtuYdNtFQVeq0keqqVC WDibPxDoB174QZUoOCztk0 rzm7NoKETtgNQpf8L6MXYG lyhlaRk8d1yzXlLoFkL6jG KjELybI8bibsKovHXvS1Ow zIDhyGl1eLfqX55fi2O0Gg inN8snVACqUBCxO2HmTB2p PKNyWhl0EQG3TAS3GUTsYS IfP7ZjRK1tAJYbqUUpSJb7 z6qndFmeLDMrXTM6y0hsDR vszjO8WF2daj1sbCj4q7wv czEgRGVmYXVsdCBQYXJhZ3 IdwSkqGx6okZt0dMmrCytx UNG1Rxh7GP6rdc82vvy0lC qgUYUkbinuBmZ0YFctPUMu yjceKMe0HFzcPKRkxOM9XB JnwAEdT6ElERKoCV8mjfv0 IRM1DXcgBUXlIvT6FSFkkL CmFYTryWkwZHici594EPS2 SsYyYZ3vY6Isz6V3jY9ccL JyVDSujMUfGbCsCCIihs8r sIGjHXmma7EtXGT4cyN7hH BnrFYbIBBiZZ88Bwhjq7Zp KfyzEII0AZUecjKgy6Eau1 fuBzYufmRdS3wxP0RqYOMo VXDaWXYqJpYmvzLhh7Xpd0 LlpTZtwEa4w8plMOZhYAIf gRxdi9bjEXJ2SRHfQ6A2uA Rzz7ehAMixBLVcpLE9uyY7 SZGraZBeC9KokU0yIDFzEQ 9lqhn5g6ncMRW3MQecSYAm HlG2uwV2YSXfvESlHFRezM qbQMrjj441GPL1XaSgYMAz m1CiR8JqxVvpT92vkWcsW2 6jSOXkkGdvrR9vfFrrrX2j ZjBcZnMyNFxxbFxwbGFpbl xmMVxmczIwXGxhbmcxMDMz NKsdQ6cpSpKuMUFnsRcxEV yun6KxSDTrFOKoWsdwklDw XHBhciBJIGhhdmUgcGVyc2 9uYWxseSByZXZpZXdlZCBh jZhgv4WzR5niLI0lG8EeuN NrldCddkPqUWqgDDUvp7k1 lHKblQyss2HacZWrZW30jy TxBODvWUQ0FWHbl9vqBJ96 dvtxKfSwqM47jfMuceFlFT Uhf4gtN7pjsEDle2Izy1Md jhDaHZohi9OsUI0yzOYlce rzsQF1NWSgkCOfclSlapJ7 dHbmYNBgnX0ssY5tgWfplV 7bJfElTvEjTZmdGP9jWNAt L3zabYCvYNSfGMZhO7aqHj NdkB6exYiaPqbryxI2VAWu cn19 Clinical Information (test code = 0710827216) Shivani Schuler is a 47 year old female with IDA1. Gastric polyp x 6 r/o adenoma2.Duodenal Bx, r/o Celiac disease 3. Gastric Bx r/o HPylori Gross Description (test code = 7951036639) h0mlhIDrJQPvnUOQGZX1FI NfTF5pbVpueMo7cYfmSUSk kkW7uJIjHCfff9gzRAN2l8 coymJUFgvkDIRyKM1gMRqn FJNoNL3nSqGxHWXsRiFnTN BhcGVydzEyMjQwXHBhcGVy wIT8QLQxNH6nbyrrVHsmMF maTCAieeK2HUWsyDCtG9Bx CFQlYA0qtsiyWGP3HPNHWb lqNr2mjWUqwPsdRmLbKiYd YXJzZXQwXGZuaWwgQXJpYW v1jK6VYhtdIEX9GBPIQejj DqovrNcsl2YghXTtYRNoWB xcaWQgNTEwMDAgXFxkYiBP CcJsMfS1Nwm2XJP2VuB0NN z6HYNANFWoEngcFPJ7IsA9 EAm2AGSiJJ8xPZdsnCSrUQ cfLzxwQLwfZ644HTcvEWUe G1FvO4ClZOsiOeNrPAuuIL HyBRDoTOvqQCQjQ7NZNGIn OXT4FwDlELXgKNz6JNwyU4 HUFZOtOITwUyM7YQSgZsT0 YRx0XOCPNp9eJVvrItPpWV n2LNT3GYl3FxVhOBTzAjOs VLKsOQLrEKwbmUQtSJ9mnI beCXCuBW9ZFTQjWDkwOAGk PsVfC2FCZ1eINN5eZLzcoL JjaFxmczIyXHBhciANClxw KHTcYK7KUVFfOTrzQNx7qv JfJJPiCcVrHMAzA61bb5WW e4RrCP4OVNc1xzDnzzmvxW 6fRWPybbNpVAfLgSRhlZ6a ohVVZTtwBCTaW9EgzrSaPC hrXVFvkg7ckGhkCXsfVlUz bGVkIHdpdGggdGhlIHBhdG rmxyBuI9Y6bqIjEJ3eGSMB OPMzuX3bPFFmSPMbq4JviJ YjkNkaV2HuiYZjHcVke7v3 hGY8FKBlqtVbXBYlgSNrYI Whqx1xUJtdDnJoX9M3ARHb OYUgw92qhFM0hzIfEaDonQ i4gQAmXSA0OA4asBcytwXq h9a5hS4zCOIyy5G3WMJjx9 I4TLNepvSoaLAisDYbQPLy NX8dkjGzTO26YAAuHFffEY maHDI3WRG5OYXnpNGdq2pq cvyzGr1vPIszJH4iIFgcKU 76MOWzMOxrGFPoI8AwU5I5 DXviUUBqBMLqmZHxqD9xom BddqGajZv8TLKsQBK1uTFr wHjxXTNuSshhfCA2DLDvGb DtyaClh7CbqFk6bNRbWIhh MPDcrI1rjH1oJEJsXUWynk HXLkwyVKPhZPapj7DbJWqq cGljWHNhMzAgDQpcZXBpY0 1wz2WJl6Eue7hozRrco6Jc cLMfBN8evMEgMR4Dl9akVP IyuQVfBOY3OAica4sbIDlx ZNI3UOBoVlJdYVLcNN7TTu ItSNdpLRd6EFeyYQq0BMv5 UZ5FCgBxGOUhEnp5LuZ1Hf IjPFb3CLwfRK9YABV7XROx MOAbSOgrANL9KWZvMPb2KO IgXFxzcyAzIFxcZmwgXFxu G60wmPSuMPxzKhLlJPzkqJ fhROYnRNX1KL3WPEVtFaAy H0MZI9oQJN4tLgqgxiAlPO UtrgOJEhqlREZtSR9CBKSi NUoxUOd7vmLeXISpKyRuMT LiS98zq5LTv0WkOM5UVGv2 lwXgxouwpA3cQPYgklDrj4 IzMFxlcGljWHNiMzAgDQpT qJFkxU9kblNKRDdtMYTuS0 JlciIcHGlcDIGvtm0rwPfd IGxhYmVsbGVkIHdpdGggdG hdLNBgfKvuwaGmB1B3krRz VK3nCPZSWNXaxT7eBIPdWB OtULQfYSZkfE6bCUO5p1Mn rqVjZNCOHAYsyRnxCY91oK BjZWxpYWMgZGlzZWFzZSBh wgJhkuVki16ggnEah8ZeUL 0peIxsNXdWZIbnQnRhBD8s HWVsveEpw7HwOA5nJKYsgB HjBUBbakmrhEAsQEu0wSDs NLLwOaEfpNqxm5ApCNZbBU dcBU17vuPiAX1lUYmnHH6s LFmsFN7tCWVtESYoEUDiTv FdcLXsIeWcjHQxEyNkW68g UwMEiGNme6IiB5vvMK5abK YvQrduvTWbQWGwoKjtj8Gh dACqZUEkh4WskNRtMSxbJO 5gVKJ6Ob8ftNJfFVJvpcB0 o5GkSWhzTMOnRemcHQQwEU bci4CqHBGpuGXKx6TtXN7Y XHBhciANClxzYTMwXGVwaW MNk5DxPXMKIgjmgArsZpEb nYCrElN8HWKrlGIvGBI9WI 6beVcuSDUjNPc2HHlmIJDk G6IgD0ApMHeuEkAjUPgqHG GhLERaUEzfQNBkU1APIFAb UNW9CvCdKSCbMHq3BJsyO6 EYYYLnYGAxDtS8DOI3EcH5 OJx9QFUPPn7sWWukMiEnXG VnNoZ0CTg0RbPkIQZzMqPw TWHwIAFkJIbmxZSlYM3cgT xvIPKrDBKsXLA5SKDoxVIR w8PaCYWmMAbxCoVaSYVFXR WRUW4JSxTLIEDyCzLahJWl FN8EPTPzyfHmAWentVgfzI 5giNRtP9muUnZaNirujJrf TmVzdERvYzEgDQpcbHRycG FyXGxpbjBccmluMFxzYjMw HCLgiILUr3DxBLHORbQsPY NpbWVuIEMgaXMgcmVjZWl2 AWUfqB9qEz3azRJtdA0laG EuDNgxWTWbc0h2hSC8aDEz iYU2wNKaiFesPdYqLD7vhP FaZORZBZ86jJWzolMlPYPy xU5zDGKzBDNeLVH9evpqJS GFJPC8uIWuy5Z1FZhqNGJ3 wZ7diRnpZzFmZ2S5TEYwSB Nki97asWR1diWdOfOcZDQr mm5tiA5zLBqzdtNhgMkrfl Ixa2E4ZRXeu0J9OARntmKe fEZqsUHlXRYeDuL3PRClPf F1NADgCWKyqVIfXQNtON3t VGhlIHNwZWNpbWVuIGlzIG CdtVLgfcLnWSTajw13S6ax TVLvfZ3gf4zaVnNeSWQzXM PoxKHhvWF6DUVieY8osQ31 ocFtrjKYKF2klXMbQF0LRQ NiMFxlcGljWHNiMCANClxw OGWyKOqkd4IqIMhupCbiIU GwJhWvYTvShUfeLRWDL6yw dOIeMVpbHRWZBZxAF7RHKB 6FLNCfeFUKVQC1WB7wEAko RVIsG1IyZ7ZkmfV7p7hchR ssp6CnyHPmVM1cgEMsUF4Q XHBhcmQgDQp9 Disclaimer (test code = 8512444193) p6ssyOGmINRfj5hdRWTduT FuZzEwMzNcZnRuYmpcdWMx KJimjnFvGYadc9SqG9ThCg AwMFxhbnNpXGRlZmxhbmcx KMQlOFI1moNbOSIrXQzgKH IjPFekEn7txSNrtMudDsKy GGHga1zgkhUBDResIaVnF6 66NTEsUFxfe6exx1FhRNYg wTWvg2F4SUNGgnmxeAo0uJ xbI38ow1A8EjejA1gpSONj HGMkQ7VuMQ9yTUJrZjs2YZ Z8IZB5TIWnJKOtR3ZkBC0t TREhcIMeZBi7b0vnaIhvYF BzLHO2m9pwHTtkkwPmSY4y xl3bbMc7t9ggoxHqCDRhAN LtfVQVKMXkH7YukEdbTg0x cAs2qQubPjdbPPI8Gsy4ZO 6cot35neq6mFqdHVAucxbe HfH2YPtqEZEblbefZNh9FW pySIEpwFK4EDOutJIlK7Mm OCIsXB6fjeq2XSH8LXfbYU TkCrT3YDTqwADbKDKgqPyo IEhco779EUJ6IaUtPN5wV1 Lsw9E5qG7wiYJhBKDlnNJy IsPmEWOayx1tgHGxLQgnv8 UiMNE6rzJ4gSKzoOCaMOHe UC79Iwbsp6GqYghza0TjU5 5uuRB2UBflb5uiIF5yTzV7 vvZpPEuhh6jkoU2sKwJ2ZL arPT7iJI0tJANjyO4hkapi XHBnYnJkcmhlYWRccGdicm EqFg2ojGuaRAD0AMytC7xl qD6uVxJ0UGwkH7bwbV5cZE k8UBclmUB3CXBryH7bOG9a bjdzm1awWXmuPEuyXZChpe B6jmM5NWBclUOqE9SutZ7k UMXeTW6brpbvk6jmMDW8TG pgVMYvNUE2YvQcNHOhx3Jh wnb0MoHsv4HzjNLjZYasE1 5vq469MFEhdeMvZ7ilgFXa wwekhAKfrjclUOadteH1YB JppwNur2FwSREyKBF7BZtv THgllWEmGXFtdNgkj7qhP5 RscGFyXHBsYWluXGYxXGZz MjBcbGFuZzEwMzNcaGljaF cwJMzxPrTwPXKeMZieA6px OlOaT8NpBXUcViFhkQWaM5 ggVGhpcyByZXBvcnQgbWF5 PVgaI6u6HRIlcbDluZy2md EvNzNgRHYeNAD1YXhorHDh DLXmg8SiloxarUEmVz3ctS FlKVAaaM1jKIScSIIsAKpp RK2acMt6XCINhXKufHTvVo SHLFCyHZ00jvRhILUShgqk x6M5LVlhSPRzt3KuoUSbG5 ewq1YnQMQsc55sVT1iv4E1 y4ckYRM1GU7vo7GzJNGngP ChwCQgOVPnj1Dsqyvht4Jx DPWyrtWbf3ExCOQgwoVafM SsLCWoygXbpz4msmHgSPAv CEAvK5CkhbeeoLnibvUyJD Npik2lgfHuZVU0LUOZVDTh VMIzs0IlzN3fwUHXUOB1oR Uklp9ldcRSjMTtIXGypz14 BKTyJN8nE8jwCKAxSXEpnz MqoDFeq1IsWRBnaSW5kBUq TL1PJdJHt02bFYKlIPSOaq UdYMYqkGjbjNJ4pbY3gG9u IChGREEpLlx+IFRoZSBGRE DtQQ0snwIts0TopaStuSbb XWXikWPpr3JcfOAef5JzmT xqb3PcxLRjcGYjJA5iRIBv clxwYXIgVVRNQiBMYWJvcm E9i7NrGNGgZCApJAX4tCia lat3KNBreJ6dDNDhM6wvzz pwQTseSFZxw0PvoQ9wtUVC lSEks2BvuFWvtWNXpJTeVE 6yfxGbTBfSPCfXQMT2sfQn TQOmz3ZiNEqaN8euL14diY kwtAj0zEY2HRN0tE5sXto+ IFxwYXJccGFyIEFwcHJvcH QgKNUvaAadgpXyK4HeaxZy eR4kdAWxpmWgQD8hEJ1qK0 U1wSMiSEEbjrMby7xdBTbi dmUgYmVlbiByZXZpZXdlZC Rbt3BkLVdbZDC2DYkziwHp bmNsdWRpbmcgSCZFLCBTcG UbkFLaRRI4GFmopuBhduHm MB6bfZ3goGirsS4wbSXewH L4bksxPPNaCARgtXgmRTUz SB3eqFfukA0fBrVvJcGxCF duUX0wVZKaB5ddrKRnPLSj EFPoY0teUzMpmU5uwGopMT xjZjJcZnMyMFxwYXJccGFy XHBsYWluXGYxXGZzMjBcbG FuZzEwMzNcaGljaFxmMVxk FiLaQHTsZWmlM3vjIdMlM0 NnWHJtXrIirWUwH2rfHSfq QEU1NDXvCR9lyDYxGI32hK Xbi3azPTgqkTpcef1uO85p qOHoTHqvpElmYRMqq69su2 BdBPScysSiyo4tZTDgjvB0 jT3wJOGqpNzwSFGjtYVkVI Abi3PeCKjmxTDcbwTmSFev RIIcTBJpaFDihvO1ytYmva AihlVqHXSlnXxdESPzl8Bt YNOhWJixg8Vndg4hqZUnEW WpakUNjAnevFDwyK2wQ0Ty QLXoCXSizw0lPXXoaP2pGF twp8RqgvatRTRrQZDjIHNu ixTnat6vFTRxuYBMFU8BUT eecKPkn9NpneOlQ0mVDMP4 NUQwNjYwMjgxKSBleGNlcH WhSPTelp05NIGkfT1owKgl EPFsfW9eeH7azCeguP9qWo AvKfCoETulYE5rTVJvA6yv lVMuMBSpZWHeJ2zrOrPdtF 9jaFxmMVxjZjJcZnMyMFxw YXJ9fQ== Embedded Images (test code = [id number]) [id number] 19:23:05* Test Item Value Reference Range Interpretation Comme nts Case Report (test code = [id number]) Surgical Pathology ?Case: [id number] ? Authorizing Provider: ?Dominic Keita MD ? [...] HPylori ? Final Diagnosis (test code = [id number]) y2yejZFfNGVoy6hxKUBraT FuZzEwMzNcZnRuYmpcdWMx XMxneePtBPiesKysNLY7VM QgDJ0teEfirZj0dBvgBFQp pvA6pXQoSCqry0rvFTZ4z7 uqcgxqCFFmGDfvKk7ndUXs iIoqZnBwHVCuJJj8iT28CY SqhE4luEVcCBt4HTDdsUWg uxBrRqVyOATfxKDoaFJ1OK CyVP1ovmuhQZimRPapAJPr waM1FKLzhEFoI7XhAWCkIV 8dvpkzANY6PDwuKHPbGUN4 McRxZKTqk5Ibczt0MnZbmS FyZFxwbGFpblxmczIwXHBh ybXNNwATWK2BSUVWBUVVP9 aANXAIRT2MNMRHSkuyfBFr JNXpMBFoFALVFA1WUHBnF3 dZPkXfRR9LXAXrCVCyfTXz ZVUwriJUZfCVMI7KXC1PIT wgQklPUFNZOlxwYXIgICAg MEObWJiHO4IGUJGoTFMIF9 YZKMpBPTdiHr3bAZNATJ6J T8hTH9GZCKTLPJ2JLJvdBE FmXELoBDBhTB8OAMjiOJUN SO8HNIAEYRKDGWaXBJGDGJ JTLOxDFZEVH7JKZDeBSZEo mrpyERReIt1vJ5MDSWQKCD wgQklPUFNZOlxwYXIgICAg BOCvKCUEB9MRUfQKUJ1OX6 1SKABXFNENCW7WLFFARRoZ AH6GPXMLLYSTWIXKS7ZtqV FyICAgICAgLSBOTyBFVklE MH1MLQADYiFCUFyGCJFxNT lTRUFTRVxwYXIgICAgICAt PW9JWSleJQVSTY8NKEIYUy dBTklTTVMgSURFTlRJRklF KUTFGGAKGK1UKg8FMREDCb xwYXJccGFyfXtccnRmMVxz p6EvD3GiQoOtJCvoiwYaJU NoHqxinmqjSKKxQJT3jhMv LVHyRFomBYCbGGvpSh7liG LhgAzcHjIfTPBho1aignYE FWxaGoNhP395GRDgJWiir2 apr1ZhACCjsZEgm4Y5UOUO curetGc4u8wgIxGqCeP4mU TuTQtgA3bsknQkdXDnI4Yf kCJcqYs3tAzsL00ka0C3Xr qqM0pbSMVaQLTdJ0QjQR0y GZTgHuy2DOH6DRH7TTNyFI BeZ2MaUW9xZCIskJXpOBh6 s1tgsLysWFHpEJA2c6zaCS psdhF4RR1mdq5yvLm9p2sy czEgRGVmYXVsdCBQYXJhZ3 FnpPgiQw0cyMk4lVwhLznb WHF2Wdc1ME1fvx89agm8eS mrTRYwzjcmHnG7SBlzZFVr wdzeRLn5KYlpGPKkbRC7KC LkkSOnZ2AhIISpTP1hagv7 TEW9JTxsBUSiBvH4HTNkuW ZmLQZcdApjMVukp269CEX1 XeFoAU4hC1Lla6T2hP7hnK WgIGQbjBTnWmEtKWTkoy9t tKDdPNusz7YgJBF0uiU2zA QxiZZaGWPkGN63Wzplr5Ay WqooNTT3BCOenvVeh3Azb8 xbOwZtgvAkQ3vlR3AvUTHk HPWfDCAmLgTfibMuu9Ejy9 HzeOSovRu3s0luCDRrUKDw cDqzu6feITS8UVXeP3C7kZ Aaz0wpSTifMQVfdJR3jcI0 DLVfmKVdU0YydF6dBSDoHP 1gvzk9n8tePCV0BPdhUIHx UzI9riV3BLMafKAbHGHrtQ ntUIibf246UGO2GqCiFWVg g9CuU3PxjAixC49doQylT5 6qVYAnqEylbE7sgSdbjE1r ZjBcZnMyNFxxbFxwbGFpbl xmMVxmczIwXGxhbmcxMDMz UMjdJ3rtFzSoGWUaaScjXJ xly9HjPIWeHBLwOrzqneEk XHBhciBJIGhhdmUgcGVyc2 9uYWxseSByZXZpZXdlZCBh kNzzt3RyD3nfBP6cR7WmrJ JlbpOftgCuVLagZWBcg7k9 eIGsoIsbw4BfpIAnED63dx BwGWWbKYW4TBKwr1utRG45 hmbsWoKkvD05ziGmzoPsCA Iev0mbB0sxeQByo0Mfm1Qu oiMoTSufj1CsKX6hyEXpse lttWV4ESTbqPWtljZnpfS7 sZtsRFTbgV7quY7faVrtcQ 3sRgRcOkTxPWxqTO3hQOSz R5cnbDQjBEWsUHWxT6ppJs TtdV1iqLskCymhjjU1UOFm cn19 Clinical Information (test code = [id number]) Shivani Schuler is a 47 year old female with IDA1. Gastric polyp x 6 r/o adenoma2.Duodenal Bx, r/o Celiac disease 3. Gastric Bx r/o HPylori Gross Description (test code = [id number]) d2jflWUdNJOnbULZFEW7WI MqSU9ljRqywLh6uFvuFMTu szQ0fQAcCGbhm1esNMW2p1 cgolATLwtfCLSbTO1vGFrz GNVhFO3tRdTpGJUgVnIjQX BhcGVydzEyMjQwXHBhcGVy nRB5ZLEzJY1wtlbwCMjbZV bgMKNgfdE5JDRhsKUrH3Iz QDIaMV5fxxqwQAY9DAGAMx nbYt4qvCTqgXorSySlMiRo YXJzZXQwXGZuaWwgQXJpYW i1oE1AUxksTWR8IPWZBzst GulugAefa4EzlASbWABmGL xcaWQgNTEwMDAgXFxkYiBP FgWzBfP3Umm6RVL2LhD0DJ v1ZNNDDNMqFbjtVIS7VyJ8 TJu9STCiSM6qOHtnnSFeUF zfAfvfWMxkB866ANzvGAJh H0VtR8TjDFacMcJxIOysHC BiMBTzVYtcNPKsK6KEKPFc NWN7GzWmMCRzYGr0YZzcD7 LWDGQkOCDiLoX8VFWeHtO4 ZEq8DWHWDv5cVJpaBhNlVO u0FVX3JJd6LdVvJZIxWsMq XCLlYWAiXZaryHQxJX9guZ amQBLvMG8FNEOgSNstEXGw ItDnQ4VQX0gRYI0qIIrjbH JjaFxmczIyXHBhciANClxw IUWtNQ6QTJHeFHklDNi3kp TrVOZeUrTsJQRjR19vz4VF k3YbJS0GJTh2tcYaojdeuD 8aKYUdztAtBJdZlDLnkM3z cvLXTKvpANTdV9UdakIlMA cvAAYvpf6zwGfqQKweAbAt bGVkIHdpdGggdGhlIHBhdG oazbXlG2H7jsHbRR2uLJTG QOEeyF8mDFAyARFvr7VcpV IsjQczP0UziWBfCoOii3v9 qGC5FAHtmhFxPEUldHIyVW Hnex3tOLkaPdNdA8E5ZYTt CLMmu82wsYQ1oiLxEbPzyK x8vNTwMTC2ID5rlZmcquOt l3y5gB5xYAYiw0Q2YHUcl9 X2MALmsiKyaXHgdFZvQQOe PY3nwbWuVY03LRDaSDpjMF cfOEU3TLR9GCMjvBFtk3ct lsslZf3oLIgiUO5xACnjXW 66YSHzBGqvCIQwM0EqB2L5 LQuyDUAsVWWrvIRwnP4zku FhnpXogQf7KIKbVZW6zWVh nHidJSPcRwoshHI2WWUnGp TbqkSwh5EgkBl2rMWeVFlv ZQLqlD2kwQ6yWCGsNMGlax QJYtteJIWaZRcet1BsJDjn cGljWHNhMzAgDQpcZXBpY0 6kj4LTu1Fbj4gktYeya7Bq fJVvWE4niIMqCC1Lb4vsZK DbnAAfTJY3EMjqm9cmWTkc TQE5IBPqMxSgIUYdOU3LCn OxDLqnJRc1YYfcANb8CZn2 QE1FOcVeRJOvOxs0NeA0Ma NgXUm8QRovQW7INEV0NSVm RRVaDQxnVFR1MEBkEYj7LN IgXFxzcyAzIFxcZmwgXFxu D38cpRMjVJixUvCgQEemgZ waBIMvKDA7QT0HFFTyZvAg R3NNW5jQRS9sIfoohtNoYK OscxRBWxcuWWBeFM4GDMZw KYjlPFc1gtIkSEQyZwDpXO OwG30zq7EFc1MeWB1MPNs4 sbQycuaddC9gQKTngmHth2 IzMFxlcGljWHNiMzAgDQpT sCTmlY0creKFVIslSQYyV1 WtmrYnCEhoEIIxun7hiFto IGxhYmVsbGVkIHdpdGggdG ugXKQlkVajshBvK0O7xjEh FJ3eMJSWPEBrwQ6lYYUzGJ JdOAUoTHWenG7cZFC1t6Wi nqPrRNTVGRYlqHdaNF65gN BjZWxpYWMgZGlzZWFzZSBh lpCmxdJmz18xlcMvk3NqHZ 3avFhtNPsFWDgkMcCoQI3a SFPasxJdv8UhGB5dFUNtnF InMVKwnjahvCYkEIt3lUTw FZDmXpGykTwzg9PcQCEnMZ qhGM88rzPiWJ2nLDozUA1y UXdaSM5bIWFxPVMuBKPcLh JuiPZqXxHckTBkVuNeU34c JzABjCThw1HfN3kpFC3csI GtMriviQYsZYXpzGqcn7Ct aZVaXPGmq2PccCXeCKayOY 4mRZU9Kf7rhWXcMOEcvlD9 f2UiYHvkRKNtPfiuBDPlGN nrw8BsGMGfwNUZk4NwCW0H XHBhciANClxzYTMwXGVwaW JMs4WlPPLDScookYjsRsPn aJJnIzP2JXMiiFOzAEY2YQ 3ptJnwCQVoFDl9TFbkFYXc X9SuL8MgEChwSmEhSJqbXX FtAUEcHZlsDXMnJ8BVHRFg YHE0BbXpADAjYSh0JTywH3 ULBCRqTUNpRkR3UUW0UsE6 DFo4HNYMKa2uXVstUpDqDV DeLnY7JPq6BgMcCTGcXgGq YHMuSPBqKYihlBBlSD9ghU gtYQAtZWNsVYB7LQZzwRUN x6GpJMDwPFpnVuRgFRIAGU QOXP8DGlOWXIInKoJonDAp IM4IVXBkktRyUYpvuTyseD 1miYGtT8leWfZrEqrkqEds TmVzdERvYzEgDQpcbHRycG FyXGxpbjBccmluMFxzYjMw MZRhcGFDv1KwZXBLQyYeNJ NpbWVuIEMgaXMgcmVjZWl2 OWNjmE7dEr8khNThfG5qzH KmCDyvFAVah5b5fMM8kOTz vMN5yVWpdKdcPaAuRE0jtW WeOYBYKF55gTIspyFxDUIb vH8lDMVtZEOnLUN1lyuxEJ KCGQT6yUUcl8U6YDpoXYE6 gN4lcKutCfIzX4Z9AIVzUJ Fdk43biQE6dyFoXaBiKGEo hp9fuZ7fDKgrqgQlyNefve Zpz2R1QHZdv7U1EYCcmoUk nFSxvLBqPFPqArP7DNTsPm C5CZRhBXTimLQlELAxAM0w VGhlIHNwZWNpbWVuIGlzIG KebWKvwmBiVKLzpa01T3gs VBYnxJ0rt9rxRcKzDJXhSY FmhLKnlTN6IAGqcY3cgK90 rjOafoZGND2jyTKyDE0SOL NiMFxlcGljWHNiMCANClxw WCDsMRqep3KyTFkehNdeAX RfBeMlOIuRaRhbQWVVN0va eBQrSCveHXEXOUiHU2SING 7UPGZbxFJIQPM1NI8tKAqa CXRlZ8KnD4HpjwB7r9mchA gao8GbgPXuWU4gdDCtRL2E XHBhcmQgDQp9 Disclaimer (test code = [id number]) h1mytLIpMOFgi2uuRQBiuN FuZzEwMzNcZnRuYmpcdWMx CMxrevFcOZzwa9YgK5WtSx AwMFxhbnNpXGRlZmxhbmcx NQXiLNM9kaTtIGDmRDqgVH ZkKLvjTl4bfTXfmBwpXkUf OGBqq1xivsTDCCdfCtSwA5 72ICFiNBuzb6dmx6GnGGZo eZRnz5Q7YBUXuttwqZn3sR jxW06vg8L1GndrX4pxXHWl PESzM9KdNX0sQOOuZzp5BJ Z0CFV9LXBsLKKtH5OfOM5h UZFbvFJcBZv4r4bxoGnbIE ErFOY6f9ifBLwtbaHtGT6x hr3cjLk0c5vjnoFrIOHjQU OzxEUNIVZdH0LwhIzdBv1y kSl1vLnmKtleJIX9Muq7MP 1wfs75cre5cOppYKSjankv QtR0GVmrQUMefkikMVz6VX caBYQddDP1ALVkyVEfM9Kw YJXnPO5ikze9VJW8IYizGE EsSzA2BSLwtXYaHZUvqJwd NYzrs507JJF9CcOzTG0fR6 Nip6B3rL5svRKuDFHeuCUo NgFpWEUhzr7cuHRzLPmkh0 FoHHC5ucR4wDJmeXBfZJGm RE22Hoezk1IkEuhrw6QfV2 1luZF3KIbow7fgGP1tBnV5 asIdQYrrr8ulyL5bObF9SQ kgGS1rGI5fESLwxP9iscmy XHBnYnJkcmhlYWRccGdicm XeIb9uzYmgMVP3RRszD0ru jJ9zSbV4ZVpnV1ptrD4bKL t7YCacmBD4GGKtxC9rFC3j yypkg8brNKikTFzmIESduu K7pwL4KDUlnINxR8TueM0s NEJfLV2xaiitv0lkJGD0SZ ahUNOwCVJ6KiInMXFao5Zd lun0NdLrf0BhiYLkQMrtT7 6pt693VZMukdFnJ2mwhSLp zpodjDEcltfkQGsnfeO7LI CmkbGru0QyQOKyYMY4OGud ZWjchSGwDYBihWsyk3mpT2 RscGFyXHBsYWluXGYxXGZz MjBcbGFuZzEwMzNcaGljaF afMOjzYmXbWZUpFAuqG6pq OwRzL8TiNMAcZfUevPEaM3 ggVGhpcyByZXBvcnQgbWF5 OGoxK9g6MWCgaaHbmUv3mk BmXuFrTISaNEM4UEyemFVx LEAmc0ZezbpqyIWqRb7lhC GgSBKvsB3vAAYwZYBnJCmv KD1nnDu9KGZCoFGgbWBqBl ZRNXZaMZ50qiXhNCJAegsh k3N7SFulMALhd7OgqABbP1 vcr1JzPZEgz48bVX2jw4A8 t1ywSAN0OE0lj7YhRBVucM JzvHWxYYBzx4Neghald8Kz WUYvkgEje4KgKZHsuuDjzI NbSIQmirUoai3rvjQdIWYa ILIrN8ThbaytiWqxiyEiPO Fzkr9gbfViCWX0UTCQAZYa SGAdr6OoaV6rlZCLRIQ5jM Gcio5qweLPvPAjMVYwrd22 PFRvCO9iR3oaANYdKSAlti SlcRWow4EwNJYwdEC6hIFd HR7SQqUKt85rBLZyFNXMyw IcHEPkqJtuiJN5vuZ7yF6l IChGREEpLlx+IFRoZSBGRE MwJN7wmbYqq2GwuiAhmWqm MBCvlUThv3OgbBQds8GtlQ sil8OenCHngIVkBY7xVDQu clxwYXIgVVRNQiBMYWJvcm Y6s9DzTFFnRZLbRTQ4kVxx fet7ZOGdzD5mMNCpH0bxxi nhQQmgMEWdr1YufE3ljNOY kEGnc0UrjYRuvOIAyQHuLQ 9koiAoPPoQXSfALMW1dcTt XVYtj5FgVMzmX8puX31dtK vmbRu4jEW8VTQ3zL5tFmf+ IFxwYXJccGFyIEFwcHJvcH RxZTQdfTwavnYwE1VbxuRy rN7zzVXwzmQkSY0aLQ7xK6 K8pPBqRWEwybUeg7kpCWyd dmUgYmVlbiByZXZpZXdlZC Xcl4AdZYtwBTF9YQxviaTh bmNsdWRpbmcgSCZFLCBTcG NerAUcJJD0VHahssMkkqLr DB3rtD2dcNpskX6plYXpiI W4lsmiXHZcOVRezWtuGSRk XI2rgHwusR3fQrCmUkWzRD ksSS6rSVEaS5ipePPxZUMa ILAcW3eiSaRecY4nlQwlZB xjZjJcZnMyMFxwYXJccGFy XHBsYWluXGYxXGZzMjBcbG FuZzEwMzNcaGljaFxmMVxk VpVfXCKsYLsgN3tyNrLyT4 BkJUKoBtTmiZWpP6ctWQod KWD6MWTaFO1nbBTjYQ65nS Mxn4ioQUttjLlxnf9xT96d qLHnNXwyoMjrFACnx74as0 PwCNIcnaTueh3gWWSyflJ9 mN7tJBYbxFrdVTAruPSqOR Gaz9BhRTmznVAhzzEqHMal ANUiHMDltCWdtuV1usHtgo UrnpWjYMPmbPzfYRDuz4La NLIrKOmlh8Lzrj2qoZHpNG EedaKZuPqoxLLlpH9wI3Qg OTPlIOFyue2bRLPicX9lPN roz8VjjkvdCUAhPKZlYYDg ixMkua3tYLSwxZPOPA8SJV dnoLQxd7RlnfJdR0lNBDB7 NUQwNjYwMjgxKSBleGNlcH YgBCMwmg58HRGdyM3otAah WPUohG4afG3qbSwyqU7mZy RpHyAwXHctAA2aQBKvL1vn wPKsFLDmBGUyY4plMnHilE 9jaFxmMVxjZjJcZnMyMFxw YXJ9fQ== Embedded Images (test code = [id number]) [facility] [id number] 19:23:05* Test Item Value Reference Range Interpretation Comme nts Case Report (test code = [id number]) Surgical Pathology ?Case: [id number] ? Authorizing Provider: ?Dominic Keita MD ? [...] HPylori ? Final Diagnosis (test code = [id number]) c8gvjEWcSNWvs0wvKPZpaQ FuZzEwMzNcZnRuYmpcdWMx OWoufrYkAGivlKpyPFJ7LD MtDO0rpUvezSc3bQcuBXSq wpB0uNWaOTrmc4nnDXE0s3 yacjkcTJLwBVehYl5dcQNq fFbcMdPtUQMvDYm1aQ64SF JqjT3cfEWyLMv8LUHkdBLe cjGiAiVsNBQamOHrgCW6JW OkJS9svpomPFqtLWjiOAGp bfH0VTSdxRLxR8HwNCFtTG 3aiqgkVKN3EJgyMODxQPQ3 HzLlOJVro4Xzmnk0UmIwoZ FyZFxwbGFpblxmczIwXHBh wwLCQiTQIA5NWKKLSQLKK2 xRWDCJVK1OGKKKCbykbHKw KUJqSDWkJSVOEW5UHWAfG3 oPAjLpHA5RHWTmAUYbyCPa HXWvgdRTAmBDOI0IFA9ZJQ wgQklPUFNZOlxwYXIgICAg HVXlUFiGM1EQRFJpFEIFT8 OSREwSVDlaLe1jMATQOC0V Q6jUL4DPWHHDVR8UIQeiUP LxBBMcCGKvUV7JGSexNZWZ MA1YNSSIDRLMKShYCVADJF UGENgBJXZQM0HJRYjLRXNe mmkqEVYeUg1tK7QSBVNWAY wgQklPUFNZOlxwYXIgICAg IBRjJAZPQ8XRWfTZGO4ZJ9 1YQLLJHGGDYZ5RXSTZFZvC ET0KBJJVESNJRTUOA7VbfC FyICAgICAgLSBOTyBFVklE LU2TWMNOCoAPNJwRZNGuEM lTRUFTRVxwYXIgICAgICAt OK5XFPqsERGLUK0QRKQVQt dBTklTTVMgSURFTlRJRklF FKPZUMFHOV6WSt8PPWWFHl xwYXJccGFyfXtccnRmMVxz g2RnS9OlByCwGMfrfrHvUI DkRpnhifipJEIuLCN5vtEd VANyMAkyPPNyOYstCb2eeW QljSgmJeAuQQUgi6qgjzEB QRqeGhGfK811TZXkCAkfn1 zoi2HuSCSacNMjp2N9VBVS jgyafBa9b9twTlNiZtI7kE SvBSeiE9gtxcCjgQYxE6Or gEXjgZd6fCezF02dn3E2Jo flF0qkHJEnZFVyR8EsNG6s DZFxBgp8UTC3ILI5LUTqTK ShO9ZfFH1uCGBibKKpWTv0 y3mumRoeMYFtEZW8l0egLY yghhV3DN7kxh8jzZr3d0sd czEgRGVmYXVsdCBQYXJhZ3 ZpqKdtOx8tzMn3oZaqPnhu OBK9Rjb9IM9kkp07tnh6tC rzCTHodbhcMgX4AUdpNXXw vuixDVr0ZBqcMODktPS1RD VwzLZeO8OkPYUxPZ3ybkl9 IMU0FMcdNINtKqA1DCKdpL FgYWGknWlnJXiaq136SQF8 IzDpUL5qD6Iys3E9xL6dpA QvBPXmtUEnNcIfSEVifi3e iXUiJUcyt8HqDVG3ypT0aZ VcuBSiIRDoLU36Dxqhq0Kv LaysDGZ5DXTwfdCwg2Mux9 osWfGvzzPoW1rmM9KuUDEf PHNyMQNdWzDmgqAwr7Kpl2 FkcDVgnLb6g1eoMAXeIHJf cIgvz8nvYYG9ZBJjR5R1bQ Ods5awPRgwTDDebWJ0mtZ6 LHYtzMNbD5BveJ7wWTOvTL 7zbhj1u2nuNDP7BXzwYNCc UsD4fzT3TPHzkGCmMKXvvR itNSnqm951MSU8ZqPrZUPv y5TpC0WmmMrvS47hoNhqA8 7dKVUmeDtddC9bxRzudM6n ZjBcZnMyNFxxbFxwbGFpbl xmMVxmczIwXGxhbmcxMDMz QRpsI8ilAoUuRXBmbZwsFO wea5JaUUMcKVRaSlvqgsAy XHBhciBJIGhhdmUgcGVyc2 9uYWxseSByZXZpZXdlZCBh mObwb5ZsC6dqHT2yN5KhvZ ImhmAodlTiOUdjVDKji2s4 sZRoyEzrp6BukIQdMC79bp MtENKpVZO3HCMxx2vqGZ14 aykqZtNwvK01xdSsdrOmHR Qnt0dkR8nlyHTxx5Igp6Tk ycQxMHrjy8YsEV9ymTEaph nhoIS7QHXdyYHkgtSjhqT0 uWqwAJKtcG4saW9fkKgxfO 9hClBuYmHgMAfkRI5zJHYd H3qqoJPlIOYnVNMxS0boIv LplF4fcRurRfdzwjT5WYEw cn19 Clinical Information (test code = [id number]) Shivani Schuler is a 47 year old female with IDA1. Gastric polyp x 6 r/o adenoma2.Duodenal Bx, r/o Celiac disease 3. Gastric Bx r/o HPylori Gross Description (test code = [id number]) o6weuBNtGXQabVCRDVW3BN ZqUU7gfLjctNo7eKebZVJe zzJ6jRLdPIlpt8ywLOQ2d6 wcnpXJBrhgGPMjFV1jXGib FNUtTK3mHtKiOUGnUvNuBZ BhcGVydzEyMjQwXHBhcGVy cWT4NSPpEX0nudwdFXopAF snEJUfbwV2OMTzwENmB9Ip IQOtUN7xofsfEPT5FDFHCt acWj0qqUTisCheBvHkLdIt YXJzZXQwXGZuaWwgQXJpYW y3zI5LVczuUYZ4ZUCKSmjj QbkzlKahg8XylWSpSMSvJG xcaWQgNTEwMDAgXFxkYiBP ChOhUmN2Dms1YMD9ZfV4DG d1QDFCGFCsPfrtPWB3CzB1 YAq5ZBXdOS5aQTgjgUUyYQ qzDldkMFbfU123AMfeQQOh S9MsR1LuQLjfYoXlCCguMV ZpZDGtWChdVKTnB1VCSNFh XPM0NbZoJEGcBHl8IKheE9 LMZNQoOEIiThA7NGMkAkZ6 OGw9HBOUKk9iFSjnHmFrMF e9VES9OGq6BmClFYXoOiHw RETiFEAwZOrscWJdPO6bjE vkJSDjHO1YEQVuCStwPHEc EdAgO1FYY0qPGL3oXMcpbL JjaFxmczIyXHBhciANClxw MVOjZK7NDMCiUDkmXJc9yn ReYHPmWwWcHCEsH66mj8TS x4GfXT3WCVt0mhUpccbbiO 6wNUEnfmSeURzDiBJwdR3c tlFBQTksXWDzE2GlnsZaUF lgAOHxhd8wvZvvWPdmFxJs bGVkIHdpdGggdGhlIHBhdG kyzbSyI0C4upSrYO9aJPXV VAMczG2dVYSbCLEgp8XhrA XegNwtO3EqmFEpOwYeg0k5 oEJ3JDFkmcHgEBVqeEGiIT Afsx6jSPlbNlKcO1Y8GLAy MJSbt14gjQN3kzDtSeBzxE j2kLFuCDK7OM5wgWfipmTu s2u0hK3gWWTxa1F2UMTse9 K6MHNlbhDmvOWisDVfUUPv TO5gwrKeST91YMEaDDszKG emPGX6GBB4ZIGxuUUxt5na xknfPd2pTNffBY8mEEtjGT 84MEPbOOizDZNjZ8IcS5U2 CNyfMTQgQWVrbFIpxB1lzf EwifXylJo4OSPuVVF4zJNh iYmrNNPuHomvzUQ6KNAlZv UejhIie4UlwVs2hTJjRFki MOMcqX7uaE3fKZQfJODxvr INXnhqRWNpQEddw8HhHAfy cGljWHNhMzAgDQpcZXBpY0 4zf3YKc0Aas8xnkIppt2Kt cXUgKK7qhFSgCW4Rv8mbOK HefEDuHQF9CAtjl8rbDHck PTZ8NESoDjSbUVMfMU8WDa HdYChmCKb4QNbuSGs7AAo6 AT9AHwYfXQGvPhx9WaJ0Ge TxAKq7RJlaLI1GVWS8XUIe CMCqWQfsSEW5PBLxPDl4TU IgXFxzcyAzIFxcZmwgXFxu Z33ygPQiBPogUnWqDCjjkX ylJZYlNCF9KM4LTAKlFqJi N9ROD9uUTQ4sMjdlziHmXF RjjaRUAeoqTCSeQB3YWFPu IBfoOQa4fnZwCJAuErUmVQ RwR33al7VUn9YdBZ8FVPm6 ihCiaigfdC4zULKeysHxx0 IzMFxlcGljWHNiMzAgDQpT kIEalV3trxCVXOwoFGSlC0 ZtotHnXMgyJNDsfu1wqRcs IGxhYmVsbGVkIHdpdGggdG mxTPPrbKsgvuMcG4R3siPs RE2cKLHHKINrbT7uRBXvXK BzFPZqIACdjR9tMUP9s6Yb taYiZVUEMEVgyWekRS53uL BjZWxpYWMgZGlzZWFzZSBh jzAzfjGaj13izbCup7LkRV 3iyPioEYjESWdnUsEoDQ1x RISpfvLpk8YsKB9hVAYaaU ZyQOBvxtzepMNiHMd2pNLs SLOkTqQrpTffb7IqYOCfHO bgMM16vmIkUW6hWJobAO6s TTmvVK2bIXOnGAOdUHPhNe UesBVsTxZchHZcDoXtF92t SeHRaUFjn6TnU9enTY1vbX OoVhxyfPEgZKCtiCfyi9Rt yPHtTPIzt8XxxJFmYYyeWP 1dKMQ7Sk5uwXSgTGBodbL2 u3WbLPzjNJNmIclnYWVvHC fxg6BvBJEdvQXZz5WnGZ2A XHBhciANClxzYTMwXGVwaW UEo1BpDPKCItatfMsbEuGh wPXqCrT7EWNxaHOrQQL7OO 9icLswWKWcRHy0VBaoFXBh D0YvX7YgAQiyQnOlTBqlAE LaFCVbFIdqVWEkG5NZPGYa PXN5AqZlYGCzIMi6EDnrE3 FHCQEuUYRwOpU9ZHY4KkO2 SLg8RVVHDg5pMUguXeVpIN VqRqQ8QZa6QqPqBCEkVfWp EZGoFQElIEmceUTsIB3uzT vkDEPoMVBtRYQ9NYVcjNZD u2YkIQKeIRabNnRaVYSDUB NHWT9KXlKFMLVeLpAwtMNt OV1LQGBtfpYnYCsopLsarQ 0axGWgP8hbUaPrVefirFka TmVzdERvYzEgDQpcbHRycG FyXGxpbjBccmluMFxzYjMw FHPcpYKTp7YdBDAYCmAqYY NpbWVuIEMgaXMgcmVjZWl2 ADTjvA7gEt1vwXTkwN2ubJ HzYFkuTFTxj1b3kEY9yRZn rOT5pPJscOotOnTfHU4btY CvJWILRD63oADllkFxPTCo mK9kFZQjHWDmPXT1ygikIV OSJRO8uZDnd5Z8DHijDJT5 rV0jbVytShUfD4E7VYKrLB Mug70xkIG3lqOkDsYtMTWx mo3rvB3hUXqovxHiaWeznc Red0F3NQTrk2S4XGZmsxNe dOLoyCKgQUJjPhL2FIPzFj W5UYXdSKOyvXJwXZMmGY7y VGhlIHNwZWNpbWVuIGlzIG YpbXVpwyNySEAkfe87V9ee LWCcxS4au1tdUeYrXBJoSL FukQRziHM0ADZwlF1xcY02 vtLhugZSPE5iqDXdEM3HUQ NiMFxlcGljWHNiMCANClxw RTGfMTuvt9TnLOrdxQxhVN DrZwBoMUuSpIluFLZCI1ho rXVcKDueMVVFSLkYA8AMNS 2XSEQeyPNYANH0ON9bBZng RKHtE9ClN7NfclP4e5ybgG xzi3IlqYFiUZ9rpYOdBB5J XHBhcmQgDQp9 Disclaimer (test code = [id number]) a3pwfFKaWJDfl2udKYVhsJ FuZzEwMzNcZnRuYmpcdWMx PSryuxNjKXwtb0PaN2RfLd AwMFxhbnNpXGRlZmxhbmcx HYYjZCQ5fhLkAWToLAquAL XaXOeuTb7ddTHpsTzgXkQt BAZqe9ominGARIqqLqAxO2 23CYOeKXyss8qdx8IdDVRq lMIzj5U3RJFKeekgqXl0uK ngL13jp3S1McmmZ2jtFKHo ZKQeR5OqWI4fHCUbKlj8CI Z0HBH8QIGxESPkE2HqKY4v IXByjLGgCTm0c8zhfQdaQZ LeKPD9f6vfPTchaqPjPI5l vz1otKb6j7mqmhKsJAZwDF LccUZRMNNdG6ZxeSpkXw7n jKr6xTrrDtkySWU4Ldi0VE 3rdc87okq3kStiDPTauptr YgH8OOshCUGxtbnyEHl2KM ozPCMzyXK7YDEdnXLyA0Xf EVJhLO1qmup9DNP8FLbnCI OnYmY7UZFkwOMdHWElyHbr RLzvy468OBJ6XyEpOJ2eX6 Fcy5Y3mJ1uaRGaNMJotWIs MnTvMGSmyp9yxPOjCWont3 EkYRH7siO3gHOzmWLwODWq VA93Btumq4OuQuycq0BmB3 1pjVB9YAcvg7iaUS3xIiL1 dvGnGVdrs1mloQ2tTrQ6ZQ yyKJ7gQG7nZRFqfB8galwp XHBnYnJkcmhlYWRccGdicm WoXg0owTccKIQ1JBmaC7ea gK8fYxU3XGffW1icsZ8fKB h5XNfbbQG0RCLtpW2xEG6w rijaw4jrXHscILmlQIDdes I4hoF9NNDtuUGrU1DnrP0q XELiOM6kyztlu1poYCI7MQ epGUEqIHH3NiVaDNLig7Rd ouv4YmRuw3WwgBByYIdkK0 4cg465ZTDeclKbE0lirDLy ieobyVViwjnpQKgvuiU1ZN BanpSmd2FnEFUzPWI5SPia OJggmJYcULAywAthw6bxA5 RscGFyXHBsYWluXGYxXGZz MjBcbGFuZzEwMzNcaGljaF xcWCnaUoHvJTYwBHrvF1bn AtZaV3IdUGVwXuJgeBNlK4 ggVGhpcyByZXBvcnQgbWF5 JUjqL2n9XWFwxkHlwRk6fg JvRjEoTTBoXMX0EXvjbRZo GVNtp8MoysbmuCBeCk4zbW CcKACksK2iNPNiXZOaKOft AS0yqNo9JNTSzRKxuOIhSe RXOPGnCZ86fzBtLRTVzfqb e0N0IZuiMMCxl0VoaFMlM4 okj7QnRGLef31lMU1qy4Q8 e1cgQEM5TK4xe3ObJKYwaD WmbZIaEXRek8Pdkwfdy5Bl IMEnruWzs2FtBCCddbHrzY LpOOXjbgHyng0kuzGgGAZf WNFjI9UaojileZweweWhJU Ljaj1loaXsUAD1LUSYYHNi SNIis1XelK7ilMUYZJD6qD Wuru0guhJClMBkMQFhuf48 ETCfQT1qM7piBFZgHLHtzs EoeVJjv3SgTGUdeIC5sRYz QS9CIuVBg93uHAKgZBUVco HlWHTjeIchqRO4chF7cK4u IChGREEpLlx+IFRoZSBGRE QtIU1uehIca0EzrkYjqZnw IDFlxZByo7YxlJEmn8ElcV kxa2KlcZOblFLwZO4sKROa clxwYXIgVVRNQiBMYWJvcm Q9y5UoNYPrABPzZMZ9gMgb dgv2MBHpnZ6zBWYfH7jprh jaKJqiESUst9MmpX6jyOIN uWIwg7VwrPJssWQGqGUeNU 8ooeTqUJnTTYbBJYB5crEm ECYjk0BqRHxaP5omA50loE bbgSf9oOA0HAT7hF9iLnl+ IFxwYXJccGFyIEFwcHJvcH ZtVRNphKfmvnLrP9ZfqdBb bB5rbUKdquVjQW3jQV1eQ6 I2oQHsWZRjvoCaz5clTWsb dmUgYmVlbiByZXZpZXdlZC Lmo8IqKGprKKX3DZvkixVv bmNsdWRpbmcgSCZFLCBTcG GpsURmCQP0TTvmnmNsswCp YH5lqO2sjVswhK3qjYDvrJ Y9mcelBXSaJKDskEdeFCUa FT6rrXetqE1aZxLpOqOkRG hnDW9tQTLoH2qajJZqBMOb LDInN9wcZzZreR2cpNdjHS xjZjJcZnMyMFxwYXJccGFy XHBsYWluXGYxXGZzMjBcbG FuZzEwMzNcaGljaFxmMVxk BrHbUDGgIYncX4fpDnMyD9 PjFQNtRmHumNWlP1riZVrf KJS8RFNlAI5xhPKmGL60wY Bbo6kpROsibWzzne4yG21p sITgOOcihDbiGZUdc81sy7 DpAQZqdbQtgo2jODFjokJ2 fK4bAVTvbXhfSBWdrCUvSA Mor8GiFEwynIUyyvGqMZqi VIWjRBKsyDVfuwT3vnVbwg SuusXaRLSecOuiVKGlk8Dg DFYqAYvxq8Fidh3ldTNgIH AdptYOkOcvhEVidA6iJ8Ee LPHzYXIdrc5hWHOenZ9uCS ngf7VljbtdDTHdLJXtXWHd thKbtc6zCSYpsBLGDQ4PRK xfrYEkl6ElrlKmF9vSCJW8 NUQwNjYwMjgxKSBleGNlcH AnNOAfmi72EPIimF9utOuw WARubH3dbG1tnJvpiR0tNf ZxSnHeWVjpLT4tZWBeT7gc mROvNAOxLAGzP2laTyZkgV 9jaFxmMVxjZjJcZnMyMFxw YXJ9fQ== Embedded Images (test code = [id number]) [facility] [id number] 19:23:05* Test Item Value Reference Range Interpretation Comme nts Case Report (test code = [id number]) Surgical Pathology ?Case: [id number] ? Authorizing Provider: ?Dominic Ketia MD ? ? ?Collected: ? 11/13/2022 0805 ?Ordering Location: ? ? GI Endoscopy OR Department Received: ?11/13/2022 1016 ?Pathologist: ? Billy Diaz MD PhD ?Specimens: ? A) - STOMACH, Gastric polyp x6 r/o adenoma ? B) - DUODENUM, Duodenal Bx, r/o Celiac disease and reasons for anemia ? C) - STOMACH, Gastric Bx r/o HPylori ? Final Diagnosis (test code = [id number]) d2ftqMDoJUJuy4wbQJHksH FuZzEwMzNcZnRuYmpcdWMx LVywtqSkALmvwHyiIJO5PK DtUY0iyBfktHv1nWmcOFZd cqV5iSPmBGqfz8lhGQU7k2 xhquksTZFeSSxvVw0hdLPh fExtWzHmNEAsYVi4cT51DV LmwB6chUBpUJd8HQKrsPDn qmLbBiFqBHQbxUAatSL9WC YzGD1rkqadZOssLHipSBPb ulP3NWMrpLYqL2XhSKVyJF 3pzfqqCAZ2OKqyTNSfWFT3 KfOtWKSpo4Thfle5YxEqvA FyZFxwbGFpblxmczIwXHBh vuQJPfWLJE3NXABPYQSIF5 vWTGFXLI4OFOVDSkoyfWCv HCDdXYGmYNEYNK2FKUSeY9 pTRyPfTO8KATEdRKOfjCRn WDYdaaIZEuHCMO1JAS7BUL wgQklPUFNZOlxwYXIgICAg ZDJpTAiYO1UVABWkSARZX9 HOFSzNLIpfPk9wPDZINU0P Y2rJJ6YGEVCKKS0OGSmbSM LwLARgABGePV0COCnlZIKC VB0NPELOIOKLCZuCOTTIKM RZJOdRAYFDN7JNWFbJTGKd tlbaPLMtSr5fY1JVSYEDAA wgQklPUFNZOlxwYXIgICAg HYTwDBNZB4DISaWRIQ7SI8 3GBCAZEDGYHS8CKDTUGVxI LB7MPSXDRDNTOYQKL0EydP FyICAgICAgLSBOTyBFVklE XB0QIMHCMxQCFAsBRTKfRJ lTRUFTRVxwYXIgICAgICAt HH7ZZAyrOREQPQ4OVWNUDi dBTklTTVMgSURFTlRJRklF QZMVIMGSXV0WQq1NWJQCLi xwYXJccGFyfXtccnRmMVxz e0NvX8EwOrLoRZlmooKfAA WgKazxdevbTGKlJJI9ioYo TRRqFIllPDIgBGzuGx0dtL NjeIbyWaJbVGWtj1lksvYI FXhxZgGcS826UUGcZLrjv1 vxj9DuHZJzvPQyi0I6VXUS xbctlGi1v7laRnOuOvL2wX MqNLetG7tdtbHysAVzD9Kd uPNqoXq1eYuiN90gy8F5Qq vgA3fcTDTwXSMkW4CcHB6v GOVtPsx3XSY8MOH1XIYtVT NuT2HtAJ0xUINkcLIcZHd1 k6iazHfsTHZsZBU5o4cwPL tksdH2ZZ5uzt6knTe1g5bx czEgRGVmYXVsdCBQYXJhZ3 TnwIaqKe3qiKm2mFbkDdub DTZ9Fsf5RU4ftg52voq8oY ceWYZiozisDzR9LNbgHOUj vlxcKIs4TRtyGIKfzEO6FK UbsRXrE3BzZUAxQS9zcdx9 LFW7YNnuRZNqOuI5IYHphJ UpIWYioUxqDRsds918RRR3 UyDnQQ3qY3Prm6M3zH4ifC WaABSebZDoWvWdCPFvov9v dKWeVJvkf3JmDBK7ydF5dU PoqQBjPWBkIN48Bogup1Jh HqfmWCY4BWNiupJdb5Ahh3 nhVfMwrwZzY4ajN8OpYIVv ILWnWYPcEbVgvyMkr3Xuu2 GopPXvhRf5d7slNAOxEWUo lYxmi0bpPHH1FTZxM8M1zM Xky0gtLJlxZQSsaVV0ooQ0 FLVvoYWnB4QddR7bOHFsNL 3dyfy6d4huVTE9PHrzQPIi DcB7rmA8TEUzdXVkAYEurO miDCdno948YBI6CuRsBFCf h6GeT3NehTszG70nlHmsK4 5gCAQvgQgytZ3roEfguK5g ZjBcZnMyNFxxbFxwbGFpbl xmMVxmczIwXGxhbmcxMDMz JAeeG2ufPeYwKGMheMihZQ yxl8VhRCDsMRCaKosceyXz XHBhciBJIGhhdmUgcGVyc2 9uYWxseSByZXZpZXdlZCBh oRuct4UaV4osSM8jM7JvxY JpxjTakfGbNLejTGMsk5i9 sOTsuMumb1BmaFTaRW23ll BhLSPcGIU5XMRza4qiBY60 lnzkTlDfzG40mqEemjYxCP Wei7kqH7qmuCAjw5Ipc2Ta xoOlFWifg9HiRJ1xxQDszt kctCS5EOVrnHUbifKptdD2 kVlhNAHmzZ3srK4ngUcitE 9hMfXqTgZkYXuuZT2gKMWz Z8usuZBtSTEyIMWrS8glWw DlyY3qmZmjShagsvO3SGUj cn19 Clinical Information (test code = [id number]) Shivani Schuler is a 47 year old female with IDA1. Gastric polyp x 6 r/o adenoma2.Duodenal Bx, r/o Celiac disease 3. Gastric Bx r/o HPylori Gross Description (test code = [id number]) r0rvcTHvGICyyUXDAHN8VM XdOR4wrCzplNn9gTraMAOy tbM8jZOlVXmho9ayKHU6v9 tjgyISZustSSKmFE8uDBus DDIjDE1bPwDyCTZlVnFuYA BhcGVydzEyMjQwXHBhcGVy pEG8XYPdDI1nlwdbILieGL vaXDZztmA2ZHPucAJcK4Xs AHZrDY4eqigaODR4KJVWFn vmYm5atTUytRjtQdSfVqFj YXJzZXQwXGZuaWwgQXJpYW u0lR1DHhjlJBR7EDKSLvqa AwsbgTszh4DeyVTdBEZfEW xcaWQgNTEwMDAgXFxkYiBP TlPbTvB9Eol8INO3YqB5VY k9MDWGCLHdXzbaFKJ2FqR5 FUw3OYJbEE7kJEzfwCKrBZ vxSgrfSKxwI136QVfjWIGh I9BlZ2XnAJtnBiNoBAyuFF VvLTPePUvrJXCtP3OWRZXj BHI8UaSvUNXaGZy5TWakH2 CDAZCjEAMwFyC8WCPuPoL3 AMq0JJAQEp8qIRjbAvAkCJ l3ZLT4IUc8WlEbYTOiZlUk UVBoDKLjPTatxABnVJ7ncP gnORDzEJ3RYINpOUwsZSId FeHiE7YCI9mJPV0qNFowaE JjaFxmczIyXHBhciANClxw QXQuZN2BHFMrUDtrWLz7ev AwSZSyUoFpJRHiO11ci1SY q5DcMP7YRQq3fsNphrtyhP 0dBHGysyOxDRrLlIBipE2i wkYJDOaaGZWqB5XyfaYzDK ugRFVsvu4peOnzKZtxFcEy bGVkIHdpdGggdGhlIHBhdG ladpBcV2S3nsSdBB2lRUVD LCAgsI7sNLYeFCDab6JggG JvkJizW4QadNSzXtWwb2z4 iEU0RRDlmaWcLYHbdDMzWW Vhcg5bCQjuUbOqS6A9JLJj PWUxv05awQZ7vnUgKqAzkA u4cUGpXJZ2PH1qiTeucvJc u8o0sN0sCDBee2P8LFGsc2 H4KJObheTklGKnlJEyDWZw AV6nmcUeNU42SLXaFExmCF rvPZO6SPP6NGPwkAOpq5tk klzeGh4fPFvvSR7hVSvhPA 70PIYqLToaOFPsQ5FjR7O1 CWbuPCErOCLvcPBptY0gyb OratWwaAa5YALtVDD5bYPf mImbQVYiHjzceEK8NCQuPg LgpcEqk7EzuWd9fJIjDWjq MCFzjH1pyH8wQAUqAYMyln RBMcjuXKVvUQids7OlBTme cGljWHNhMzAgDQpcZXBpY0 5iq9PEv4Ube9ygnIhhk4Pg aSQjHZ3zgSYlZL4Jd1aeAN RnzGZlHIW3CVeyu4lvRArr NBH6HPTfJmHfTIRbDG3WFq RoXDrpEHo0QGbfYUl4UFa7 QT8AMpLlCGEaKdz3NoT2Sb FlNVs3TCtyRP1MIBO5TBPp WGElVAzuHUI0WUEiFEp8RB IgXFxzcyAzIFxcZmwgXFxu K93chBYxBNwlTiCbSBykhZ gqGAXdWJX7GV8ORYChYcSd N9FFP3hLAU0yGylnamTlZY CckpTNUtkeCJWcXW2IHSFe UFywRYh0hpNgBDLvJmDsWW YoA43xv2UKj7ToIU3JTRu1 kcGhcecozJ9dEECqeeMhb5 IzMFxlcGljWHNiMzAgDQpT oKVmhA8zozUXLEdnQHVpN5 EhgcKxTEveILRbct7ogBbb IGxhYmVsbGVkIHdpdGggdG vaCMIciYrnsvRuA4T4enTg TA2uSWHXMNElsF4eNDXvHG DtCDSqVOZhuY5iUMI8b5Jr hzCmVULFCWXkzSadRU02kY BjZWxpYWMgZGlzZWFzZSBh zqKtciAoq64whqQjv1FsGD 2tbFduTBmSAJwbCyDrDA2m UXQifvKaa6WjZF1rYZDvfD WjJYAhefoflKTpNXd3cEYw IVKvYdHqpBfei1YrQWWfRP bxDQ16lyEzFK1xLGcvHX0y HWlbHZ9bUPYnARLsESWnUy HtlRLmRsMdlCLuRfEnJ06z InJZjEJno8IuQ1xtER7ipV ZkZqjvxSMbAHUdjYurz9Yl cZRnZBSva7TevDUrLArgMM 5pBGO4Ug8hjCMlWMUyvvA4 l8MwNEjcRFKwAwfkAQAzDQ fwp5ChQKUdqQFLs4KvMD5G XHBhciANClxzYTMwXGVwaW VRz2NeWKNDCfzjyBlrJqWg qOHtUiW5JWRgcMViMIJ4KW 9obWbiEUThVRf6IQozCQGz X9SiS6PqHCkpQsJjSPcnWA LiOLWqRBahYTUcC3KBVTMd YWK2JaLsPHVbWUy9ODfnQ9 FJIUCgZZDkOoC2DZU7QcH8 KNj1SHEJKo4jDLdkDkAuNQ RvOkY4CPf9YpXcZYYoTpYx EBFhIGPzABgyjHVqBV4bfZ wdVIByYRTkATA7KZNyjESG g6JeSBFmSTgiIpZmPHEDLT WKUQ0ORhFZLRZkBwImyAKt FX7AKERibzSsTJohzKehcQ 1dkUFmL2ghOvApAyuvgQdc TmVzdERvYzEgDQpcbHRycG FyXGxpbjBccmluMFxzYjMw FHEuzUVXz5SnBNDEYyHiIR NpbWVuIEMgaXMgcmVjZWl2 WDQbgF7uSi6joEBntV8seT ElYMfiWEUfj0w6eZJ9oJIt qEN7wXFviVkoHrDxLM6hfL KgHBHTOF96kYEfivRxLIQm hX5jBWLiRTGdIYT1ifgiRT FCDWO3yUVhq3F5EBqtUKD3 lR9lpNnvUbZdU9N3CUHuVL Jfn60bbCX1qyYvEeJgGKVh bm5hlU8vUBbspoUbuTgvbp Lbf0O9GGZeu5V5WYUqloLa dJAbzMEySQXnYvC7XHZvKy D6BKOhGBNlhHSaNBWfSN9x VGhlIHNwZWNpbWVuIGlzIG PouTBnhfThLQXmln50S6qb FOUtnM7wc4ywAzBcFWJcMU MlaUJdyZW4MXZwiO5pfZ53 huZfdnHGLM8vkYQgIE6HSP NiMFxlcGljWHNiMCANClxw PBEkQFpvc5YlHAxwhSgfUW RhBpUdQVbZjJngXSHND9ba fWDqWPztPUVCDPhQI8JJSG 1TAMJpqBBQPLS9SO5qXFtu SEXvS9PrZ9EjzzH6p9mjgK znw1XlxLGpSP6lfCRhMQ8X XHBhcmQgDQp9 Disclaimer (test code = [id number]) i8gdiGHgBYUka6ifKPDshW FuZzEwMzNcZnRuYmpcdWMx UBxmqrOwMTawm7DeC8IoRh AwMFxhbnNpXGRlZmxhbmcx ZFOkIFP4nzZwCGApJOluAH YhQPhbUa6frUYhwNpaAhLc LERpc1sxqnHYGMeqHfOpX7 02WQLsXIkjk7mqq0MjZESk iWEnj6V6BGZXxyiltJm0sH sgA45lu0V3YqbvH2bgPOEk NAVnG8QrOF4eBTAsNwr9DL F3XRI4XOTaPKJxT9YxED8w YTGtbQAvYRb3p1ygjLwqVG EzFDH9w9akGSuoubHqJG0b if4ixPh0z5nbizRfNRQgWY YckFEDBQEtL6OfuEvwSd7k gXj7bTttXehcZNZ7Vvx6TK 9lth53daj1nFemSIRntvov FtV8SNmgVRMgfendZPg1NB neJLMnaLV7KSTyiLHfE4Fc NGJnUZ5khxv2XKN4VIoyDT OlEdR8JHQasJTgJZNgoYjf AIseh749XOM1KuBqJG2yQ7 Vus3Z3mN0kmPNmLVQqpLSq EgNsIKFiqb4duYJzUZzba1 RtOEC4jcR6iVEpvIIsAHXu QC36Cbeje0QmQgrgo0NgA1 2kmIA2SUzbe7bcNL7fFcQ8 zjFcLZoak4sanM0dXuD9ON qiWL1jBH1oEFQhxY1uatdr XHBnYnJkcmhlYWRccGdicm KaGq7bmQnnDFK1DJigK3od sY0cNqX6JNitC5buzK1cQA q4QKjudOA3DLDbrW2hUM5p cqiui3ilUSgeZXqyTAZtvh A7gnG7CFPenHJcX1VdwX4q RHQfPO3pnqhhw8fhRUB5UX neFGKmZIO0IiZwOVLwp5Nl jok6WsIbw9IzfSIcZPwpU3 0vu142KFWswoCfI3mwaBUi ljiukXKtrsriNCzvtmH0HR RzjlPsg1WcFBOvKSY4HGdh SJvpjFDbRKOusQyap1amR9 RscGFyXHBsYWluXGYxXGZz MjBcbGFuZzEwMzNcaGljaF xsCTluPaBpTVTzHVqhM8xw RlArM6VrAPLoNfGkkJYiW7 ggVGhpcyByZXBvcnQgbWF5 RVufX1n2AIUjhjDnjOx1qf JfYmLlHAAaXRK2SXybsDXo UODzm0VkcxldgYUuFm7otV FmEZEvzH8wBCPxMVKaHMir ZW8wpKd3BDKPlKCikAJiUk VWWHOoES48jdRuUTWEwcgn x2X0VMsjJKCmj8GwdTZfU7 xqq1SgPHPkx65hSD8lg7N8 h4lrEPI7SH3gk0NkCINmbY EqrXYmMTSwj6Jmvroxf5Lz XGZsldNir2FqGZZuukIoeH CdVSOtroJtnu8kwyLfVXDm ZMRpW5QixiljzDsemyTcTF Zqsh4fhcUiCOH8EPJQLVWg CFScb1JduL4xnXBWCDM5qN Byyu5phpQMpWDxORRlsc33 VTGmOM2eR2btAFFfOHGicy UqnJNlv8HkSMUsvLH9vTKy HF1VHmYCg82gFSAlQSKEel RiJLIqhTraqPP0zcZ4gY0f IChGREEpLlx+IFRoZSBGRE AsUH9feyFlb1EotoPssFgb ZAHalQAxa3QiiNPgp5SnwD tra4PquIHhwSQfFV6mXXMe clxwYXIgVVRNQiBMYWJvcm J2y2FlAUAaPNNdTQG5tMae dty5ZWDeaS5bNGVwA7etsi xyCXyhOVZdl3GueW3hbNZS hVItc4HuoMGnkZIAkRXnTU 0xokNfRGgVQRqPNDE4ggLh SEQue9TyJDjtN9rqY11wdA xdkWa2lBX9SQA2hP3gXvg+ IFxwYXJccGFyIEFwcHJvcH ZnKJCqxFvdkpGrH2GdpiYp xS3hvPIfaiWgTJ6xCL3xS4 L3aDTrJIBwmcEea4yoKNcr dmUgYmVlbiByZXZpZXdlZC Qtn5MiHZygVHD0AIfgdrYn bmNsdWRpbmcgSCZFLCBTcG EitYTfUMH3XCecdxVluaIn CT1urB8zdHwcnK4ueINlwJ R1bpxbRVMhCBMqrNotYMAi NB6igPhsjQ7lOaXiCiTkON uwMA7rQMBeN1ubtXAsXWGo RKIwG3oxTjCnoF1hnUkoHJ xjZjJcZnMyMFxwYXJccGFy XHBsYWluXGYxXGZzMjBcbG FuZzEwMzNcaGljaFxmMVxk NwXrJGDiXIcpK3yjFsChF5 AgVJXfZlHotZHyG7mmDBsv LAL2HPEmGL8uaWRoXT16dO Sqz3lhCVkfwFrnvl2cV36k uDFiCSiytIusSUNbe80hv0 JeRWVwwwFlva9jDHGtjqV0 zW7gZWImeNlpAKXwrZAuON Wvy9ClZZrjyQBrxjDqFUxk DDLnZYXbxQNypjW2rlNazf WbkpGlSYQfwVnzMOMho5Le PTLyFJjxh9Xkhb0xjQDfVI QbxpTArDyolNWkuP1qP7Bp XKJwZGXpol5wXXChmZ6pAE aut1OesgirREJmCPWfNFMo jfFxuj2oEKIepQIBCV3AKF qjiQXpz1SxxnFrU1hXNGI6 NUQwNjYwMjgxKSBleGNlcH BvVMUyaw75UWZdtL7sdGjl VSJpcW7hvJ3uuImbhE4nLb PwDkTlSZvjJB1rTPSuT9bc hBOxJXRvXLOoA0jlMgCmhM 9jaFxmMVxjZjJcZnMyMFxw YXJ9fQ== Embedded Images (test code = [id number]) [facility] [id number] 19:23:05* Test Item Value Reference Range Interpretation Comme nts Case Report (test code = [id number]) Surgical Pathology ?Case: [id number] ? Authorizing Provider: ?Dominic Keita MD ? [...] HPylori ? Final Diagnosis (test code = [id number]) k2azyZLgFWIne7xzAKMbqH FuZzEwMzNcZnRuYmpcdWMx FEauhoWbLVqdpOmjFCA6DA AaLQ9hsJvdbJi2uBicHNDz stG9lOIjNFqte4vaTTP2f7 uoqmlrFARxDZbkMh5nwDWn bFqkQiNzVTTtMSp1lC27RJ AxmZ7uxVXoIOk9OGLxjJTc pgHtKtYjGWRdzQRzkQA0MC NvKE0suodtADrlQNidQYTm nxS3PUWijSRbE0LeLHApWK 4hcvqpTUY4ATjjSVXuOFX3 FdGnDGMob3Okgsi0SyXqtS FyZFxwbGFpblxmczIwXHBh rfYWInQZJU4PMIVLLUZDP2 lHFMDWRT7IWLFKQujuoGVo XXRcXLAoMCBAMT6SVCKiR7 uDXmXzJC0ILTKjLSLbsSVt TMBjwdTXKuPLVE1JDE2CWE wgQklPUFNZOlxwYXIgICAg KFDsMLnZN8AQPVNcDZLDQ4 FEPAzUMRayZq1pCDZAUW4C R2wCD8UKVAFQZD5PWSufZB YdPBVwLPTvZB4EQOkqRFOJ PN3HJEARALMVWYiIMYECXW EQKUsGBAIQH1CZSYrRYHZl fpiwTWBeVt4rC0CZHSKNAH wgQklPUFNZOlxwYXIgICAg OSWtLNYME3OQIiDHWV2ZY0 2AACVLAHRGNR5FEWFCQJrC YS8JNCJAJIAIWTXXA9KhoA FyICAgICAgLSBOTyBFVklE WD0TBRHJMpSEGBhTHDXqEZ lTRUFTRVxwYXIgICAgICAt GO6CVXwaYFHHIH4ZHPMCDz dBTklTTVMgSURFTlRJRklF WSRPNXXPUS8COu5JCUJOXq xwYXJccGFyfXtccnRmMVxz t5TbY9LgSbOtXGlpejPzQR PxFnewxbyzNQAbEYG3iaSl VFOlBKgnDBRjKAxzAr3jyD VwsLhbJpDxSRAqp7clqhIT TRhiTqLcD617JSUiDTeoq5 cyi5JsQBMkjNAzo1M2WOSQ xwsnySu4u4hzQbSeOeO7sO OaNWuzJ8fcbpDsoVMdQ5Sv jCYugYb1iOnoA63sv7U6Xy swW0enWZKfFTLoU9EyMW8c OABwOgx2CJH3LVH4IHVrRY RqA7NwTT8gPBYdkPBmDNo0 y0jyoWwqSYDtEQZ9u6vfGF pnhbU9QR7cgt5ouHg4x4cc czEgRGVmYXVsdCBQYXJhZ3 PgbKarDc0ixAc4lWzeYvxl LTO0Ywq3UO7mop53xkc1yR ftMZMymjfiQcX2LKpaWUIc ugcaELs8SYtlUYZvcPH5FI KilNNtD6UnBXJpBC2edsp9 HHR4HPiaYQAoPsL0PXYaxA SmRDZsrXpsCAzie519XJF1 VxXrHG1zX4Dld9C0sH9vdH BkGXUirGTwUfIgJYGppc3l bTNeANndk0QtOAA9doA0qA MsrZZxBMBuBY87Orwdm5Lq PexeTUQ1WMKexuWnx6Kjx4 pgGwOzoiYzF3tsL0GpKKLo QOZsENKqViMhhhVxl8Tlr9 BzdYKtbRs1s9ibJDSpGRSc mUtnl3gcKNK3LYMaS4D1zP Cld5nuFHvkHOKpcFG7nrW0 MMPtpIAbH5WkaB0wDLSgEP 2jlyh4n7awZHH6PGlgEQRu OrT1jxB0GRUcmFQkXGTvpT ilZGvxy639IFG7DdJwMIDp q9IfQ8YsjGzxK28eiBewL4 3yGIMzcEfixE6atHelpV5u ZjBcZnMyNFxxbFxwbGFpbl xmMVxmczIwXGxhbmcxMDMz CXfaF2fwNnBsOTFnwPvfVR hlx5YaYZUpTFNjXnhpjdHn XHBhciBJIGhhdmUgcGVyc2 9uYWxseSByZXZpZXdlZCBh vRnln1NoR0mdTB9tJ7LzcW LswdYegvIbGFsbOOOhr9o0 jSZcdMtpi5WsmEBkVP60yw OfBNQkFRB6SPAxa1jmHZ75 bwtvOtBqrB31njYzdpYuSR Nft4dtD5iswLDst5Rzu5Rg ncTlXIxfm7SjSL9giAQueh xewMZ6GGUuaVAhaqZzwsD2 iGztXKFzbB7tgV0aiSkxpC 1sGnWdUuPsXNysTG1fQVFw H1jugPNoRWHeUENpE7tuRr FpaA6rzEoyYckcfbE5XNIg cn19 Clinical Information (test code = [id number]) Shivani Schuler is a 47 year old female with IDA1. Gastric polyp x 6 r/o adenoma2.Duodenal Bx, r/o Celiac disease 3. Gastric Bx r/o HPylori Gross Description (test code = [id number]) b4rqyCPpRSHtxICJWUN5PJ BeFT8kdAosuKz1iFwePOHb yzY8cNVmGPqqc0meSJJ0k7 metlWKLmybFHJtLC2aZQst FJJkSK2tBxDsAGYyEkWeGE BhcGVydzEyMjQwXHBhcGVy rOR3RJGmNE9ybontHDudHZ hzSQPhmqT4MVCsaJLyQ6Dr ODTgJZ1sgavpPUK1TBGXZo uzKj5kgTNxbRayJkNtPpVd YXJzZXQwXGZuaWwgQXJpYW k4yH2TUzovAFZ4DVRGVrdk ZgvmpXwzm9MsbMMtHZWeCP xcaWQgNTEwMDAgXFxkYiBP ZkBiPdR4Pwa2JJD0EuD2TN t5XGXABNXsAsejHHY7ErL9 EYb1EXIxCU4mNZpcmQCcVE cwKecqIFiaK144CMjhIDWw S7ToC5MjXVreXlUhCYerYB YsNHUzLXmdFWRsH1MUJTMy CHN1PvLfNMDbQYy9LEteE5 MTVQWlQXQvXrM2UCDaXdZ5 XRj5SLEVGt9qLFrdNcMeRS z5NWE7YHs4TzWsOMEhQrVj OPQuKCKfCBnmsPFtBC6ceO ujBWScCU1KRSSvCOvjSPNr YhBgG7PSK5xKKA3zVTczjV JjaFxmczIyXHBhciANClxw MUDvTK5UCAWkEHdtOMn5ds JpYPSkHoYuJEOxK30ue7XN k5XpAE1RUPv4qaHaqszhzW 6aLDNzgrVtTCwNdTFcjQ1h yiZTXNoaHTNsP2MrxwOpEJ okYBHaap3plTcuUOdqSgIx bGVkIHdpdGggdGhlIHBhdG runlNyK0C2nmIjDO6iXEWV ITMrlO0oSVSyTEJho5NktT RnbFhyG7XbcWLpGdQsf5w7 bPH9DJBmygGlZTBlmCRcVD Wxol3dODejKyEjP9Q1SRVm LYLdd57vkMQ3pdCiQgAajY j5bPGfZAN4MY7xzPspigUx k2z6iA2oMWQyv4U0ZEVfp4 K1NDKrjtLppZNnfFTeZZNt BD9glzToFZ03MJXyGMzbEP toFLE3FWV1LIQfjAMrv8do iyaeIp3fNUvlSC6eQSybMP 74HUReJRrtRMDnF2ZaX3D7 RAuwNNGxXELftELkyU0lto EvjcObqZl1ZVCaEGG9dIYn yPkqRPPqNsxthBX5YXVtXf UkcdRwj5IeuTf9bVHxMDms OLQvfX8gzT4gOLXrRJZrak UUGlziQHOiEStgw6SdYYae cGljWHNhMzAgDQpcZXBpY0 2vc8JKv0Trk5ifoKivn2Mq sACzKL4ksAAmUM8Du5tjOV UeeFWyPGN4AHdvo2ibNFsv VGU0PELfMzDcOYRaWE1AJx WwKGwxXYl2HRagSVf5FFi4 CW8JEuKuCTIgWzw6VrH8Sm HlWTz4IWcjHA0RKAP4JNXq JMBwYXvmRCF3WBHrJFk3QR IgXFxzcyAzIFxcZmwgXFxu E40moDHiOVirJpOxWXulrN ggIUHkNRZ0RW5HRCOyGaUo T1ZNN6qLVC6xUhcexoPhZI TeqaZZAqomAWEpQI1BDHPe ENqjRMk4ovUgSDTsEqJnPX WjY77kk8NKb5JwMR7VXYo9 muVogvcwbE8dEQEsslRiw1 IzMFxlcGljWHNiMzAgDQpT iCAeeW8fubHKIDepHMTnN3 NlmiJmEGdgQFZpln4iwQnt IGxhYmVsbGVkIHdpdGggdG zmXEGvyNrsrmQpC5P1zlMj EZ4rGUKGRJXknD8xWXXaDN LuDZUuBGGwwP1nOTV5w5Wf cnXmHAUGORNlbRzcTO22fF BjZWxpYWMgZGlzZWFzZSBh vaOzxnFcm32yfgYfx2TqFY 3ggSpzPKiEKGwjMnLuPO8y MIDvmdUnc6GoCN5tRWGgcQ QoYBYicmzrsWHmWDg1nHJa WGNrNmBxnSvoe8ZeRQDoAO rtVO56alVjTN2yLCnnAC6v HIuuQL5rKFSiIRSdRWAvNb JvnMBtSiQuvVMtBmArV01s EkIZjRTap2ZvL7gsFK5svK NoUsvyvHBtPDGzdKkbt4Py xNHwSVZgv5ZpwAQqVPquAU 4vNXV4Ld6yiKHvLCIsflC8 j0OxWQryGIOvWuyhMSQrJY tbq4UeEWAzkVHIe7GlJY3H XHBhciANClxzYTMwXGVwaW HSn6DuNMFWOvfkxGeqZnDc sHUrNyO1UQKmrLJaACF0AT 6lcJxbKINlFQc1RIwfQOXl P8DlS6MnWWftEuFgIEmdBT FwIOEiJPloZZBiG7VOUMEx JTV4IjCcFGZpOIu2VCnkN9 FKREJeIFVkSwR0RED1SzV4 YIa0SJQCVg4eMIadHhZjZW RmAkV7ZFz6SdTiFWPsBvDl JCPjFEFkCIwukOYrQY1beK kbIROfBEUfBAR3HEBkiBXO h2FeVKLuHPsgJaRxSKZQFF CQOH1OGpNASUMwWdWfnCEl EP5DHQSmkcZjIBqazSaaiP 3xnIYsB2wyZnTvBpxzuTfu TmVzdERvYzEgDQpcbHRycG FyXGxpbjBccmluMFxzYjMw GAPoeMGVm0KuJRMINlTsAD NpbWVuIEMgaXMgcmVjZWl2 RGDfqU9vNy9hlZFqoW9qdI IsTJgsVUUgx8x6rTE8qTJd kSZ0bKGxtLleMyCrLI0kzN CqJIUXMV96vDVeftWcQFWj wC3qWISvJCDoJLD8sklqMK EPERW9pRBro3U6CYzoNBB7 sB9laLliOjKqF8X4VTYgFV Akn31svKH9waNhHhYkCSZb pe9idE6dPCmzeyUozRxtth Hul4O2OHApr4U0SIGjfrIq jSOggJRaJAVqTtB4RNWcHw Z8DBIkRZGvuVKeHVLeRM8u VGhlIHNwZWNpbWVuIGlzIG LntJArowAdQDIrrw43P5iu ACZmuS7pb2fmGoPbANGoSM RmhPFsuAW0HHBxcL4mfH77 lgEksqXATL4wqTGwYI6UDR NiMFxlcGljWHNiMCANClxw WPWmIOpff0AiMTiboQeeSD DgXdDsCPjBbMduVYZKH8qj cDMkPQimXPZNEHbEY7HIBU 9CHKZmsAAVAAZ7NZ7rCDhq PJGhI7LiV2NtpbJ0e8pbxY dol2FsaUFuTP0vjZAiBA6C XHBhcmQgDQp9 Disclaimer (test code = [id number]) q2awxYRnOBOtm6pgKWCziI FuZzEwMzNcZnRuYmpcdWMx GNrvogGyCCvor4NzV7MnZm AwMFxhbnNpXGRlZmxhbmcx UHYlEJX0pqMsQVPeKRskJZ EqKVkaAt6hhMOpfSxmJqPl MHNrz3docmNNVRowJgFyV3 13PZMuGOcqx0gne5NuVIMb jDOzw8O5KFGNdvhmbWn4qP urC81zf5P7DomwT2luGYVn SHCmM4ZxZO6zNGBcEtf8DS O2EYV9GSAtXXIiI9XgDT4w JMPikDPwYIo2h0jcmOqvOX TfRPT2s6ixXReilvBnHK0e op8qoXt8j7tchwQhTNBkKS WliJYLJUHnX4PxlMdaRp6d xCj3tSpnBoqjSSF8Eph7KL 1ihf46nxv8mSejPZIulqci AiI9CDzaQQFgywaxXGp7SH ryOZVpuCY0MAMaxTNnZ1Iu AGRdQJ5umif7ABW4VFuaXS KvKgB5GLHmnAJtGTPafQrf DTnxt429LCE4DlEjHT9rS5 Lkh3Y1xF8xeKKpPFSkyCGp PsAbOZDsit2kjJEnFJvaj0 RtLPX5zzR8iEEguHLoOPWj YJ69Zzagn8JlZtmje4WfV7 6rqBA5JCrxq9xqDA9qElZ7 tvHfTDtmw7erwQ3rRtB0JP nwBR8nBW3lNTDayN8ihzuz XHBnYnJkcmhlYWRccGdicm QwNt9hbDpqAJU0XGbsF4ev tS5aYjP0VEisE1nrsA9iVZ n0FWiggKB8WPNpzU6vOD5n lhmfo7yhLOnpKFirYUPcoz D7vrF4SPGuaELfX4GvwV0t AKGwYK9xjttuj3qsBPY9HX cqNXFsQXJ9OyNwKHXzp5Bx wps8RkFks9ZtlLLeIRwrQ0 8uz597MDLmqjGjB7snmIRd nanphNYhheuvCAvhwzI9QK GlliUvk5NzLWYfUVF1DQty PKqtyVSoDXGgiFxrq3vqN6 RscGFyXHBsYWluXGYxXGZz MjBcbGFuZzEwMzNcaGljaF riGPjaTfKsSUNzVKqrV2jc SyZvN0QoDHVoVvMjvRZmC7 ggVGhpcyByZXBvcnQgbWF5 HOhuO2i8VSEijzDsoAt5uv KiFrRmJXBfJGV9HYhfcPLm RPWyx5NsszkjgGJuUc2xvN AmWKQqiU2gPPWqAXBkMXny NS0kpVs7NFHNyKNptNMpIz GALIEvJY58frRcRWHHzgsv k9E5PWprHUPdk1WgfJRcM0 buj3RiHVDib04yLE3tx6O5 k0vlYGF0FH9xv0TxEJQmdX RvxXCtRTKlp9Ennqaev9Hw RZCbfkNzv0AmIGRjozZstC IsSKBahrXfjc3ypkKqDJDb BQSjD4VassaehKcezrQaYO Vfpr5mbcRqPJW8MGMRASVb ITGgm7LeyQ4ffXYKMXG2uQ Pnay8lnrFLoPXiCXWzye23 KEFcXK9cX6nwSDXrBYRblh SszJKtz2JzAXYrrIT7nRXz YI0WHpMZu07wSHTyKNOTna NpEQNaoUmysOV6jyQ6dQ8y IChGREEpLlx+IFRoZSBGRE RiBV3xmuFgf5JvkvPxvHeq JFLnaBAgt8XicWErm7YeqN xrb0XyuZNplUMwSQ4cQQBl clxwYXIgVVRNQiBMYWJvcm B1t5OeRHCiLOUlRAI8wFyv lgs1IJHttJ7cPGYdT5olwd jfXBioFOXbk8OflY4ekIGC bFUca5FwcXIasYMTnPJlCL 1mejRnTIbPYMcJNUO3wfKu LKDic2WvWErjD1byS63omL ifhIc3tYC3WDW4cY0lLhs+ IFxwYXJccGFyIEFwcHJvcH HzDEGxnGewdqTjH7NaiwCe eC9elRSteyXoYO7jZN2xM5 P9kBReAHHmnuAkv5mvDYno dmUgYmVlbiByZXZpZXdlZC Mfv8KgJEdxZUY5EXjrguBk bmNsdWRpbmcgSCZFLCBTcG WdpTIiRJU1JMgzbcDdpmGf GX6ezD5dfUftiA9fgOFxpA N9phorUCIzOXJyeZevIMGo FV8vgBkhpY0dPvKxRfIlYM bhTV2uLAFvA6tcfNUzIKEs QHKtU5nlPmDjqX9rqXffGV xjZjJcZnMyMFxwYXJccGFy XHBsYWluXGYxXGZzMjBcbG FuZzEwMzNcaGljaFxmMVxk QqPtNHTmBObyN1qiOmBqK8 SsTUXgTpBumSAvV2wyTXcl NTD8ZKJyXE6biYJqFF41kE Itv9ybMOuhpDigpo3gY62q oGIfHEavxTaiZEEqy20kx9 DtXGLhyuJwuv6kOEDetzE8 iH0cQDLseNnrPYRskZYvKU Xwl3DuGNtfqXOlbsCkISat MMCdDNTfzNWldsP9hgDjlg EjyaCuDTFekQvaRJWqs8Rz GHRjUMtgk1Szhp5bsWSxSM CebeRGoHgpzOSoxF4kG0Jb ZFOaOPUdpj4oBSNjoV4bFI wdm9EflrcrTCBvRPHkKGOw qqDrai9iXHGipDBOZG7EBP zwsYTrg1HexoRuA9wUYWB1 NUQwNjYwMjgxKSBleGNlcH BdHHDgbe02UFAipJ3buRao KQFipO9dwH4oxYequY7pFb VdTgShPXmxBM6jDUSoA1tw lDKvAAOqFJKoU8vqOkSqeH 9jaFxmMVxjZjJcZnMyMFxw YXJ9fQ== Embedded Images (test code = [id number]) [facility] [id number] 19:23:05* Test Item Value Reference Range Interpretation Comme nts Case Report (test code = [id number]) Surgical Pathology ?Case: [id number] ? Authorizing Provider: ?Dominic Keita MD ? [...] HPylori ? Final Diagnosis (test code = [id number]) h2jwvVWjFJYtt0fuZDWeiY FuZzEwMzNcZnRuYmpcdWMx ZMnxfxRkMEvoaIxqDQX0ZW EpYA4ylZeeiMe1qSviONOv opL6wNWhNZveg1jrIVA9q4 cejxmaMQUlMYfnTe4ddMMl aNrtAeUsTCWuNGv0vG02YN ZnlL3ntAYdRSg9IKQucHDm voQbQxPnVTMtpMCajCI0MV TcRA2qwiscPYlqGDxpERGc srO8RYGavPMsD6WhZOUcKW 0oxkbwFUY3SExvLPViLCK4 QjBoNITxw3Qvtff8EiGadP FyZFxwbGFpblxmczIwXHBh wrGXImBVIW5IGFUTRYCBS7 fILTETSK6CJLBOLwfpgNLb KLFzVHRfIJUYGN7DUEPzL9 vISkNhNH3JDDKcVLMebOLr NDHcfpXAPnTMAV4OLR0SYI wgQklPUFNZOlxwYXIgICAg VIKzHZaWR9UFOZUfUVOFX0 DIYIvLJJzoNz3pVEFZFA3Y T5uPZ6BXGQWNIO7GNHqgPN IkLQHtTEQcGV4LZOvxYXZT YO0ABVXBDBSWVUlMAXEOKZ GUQIzIHSKQM8HILSyOEBUj ykvvYYBgSh7gM3KWWUBOGD wgQklPUFNZOlxwYXIgICAg LTDaTBZMR5OSAlQBEJ9SQ0 0HKZUEYYBEUJ5KPXSMIUiP RU7KSURTXWJNSMHUL0OjeD FyICAgICAgLSBOTyBFVklE SQ6TUVONBvBETAgAZOBeTV lTRUFTRVxwYXIgICAgICAt VU3UVZdvCGBATX1UIADBTz dBTklTTVMgSURFTlRJRklF APHAQGJLTC3FZz2TVNBWIu xwYXJccGFyfXtccnRmMVxz d4KzU9QwSsMtJXipdeBtSV XkFitlkcpvPPRnIAQ7ynIw HLYsZVphKPMmNYjdEh7inG IwtFoaXkFuPSBmu4brbqAA ERrjHbCmV189YEGeSIwte5 zxt8KhBNBpmETxg5N0NGYW huzqwNr0k9vvHuXfJnM8cI OwIYrfD1ugvuIxxRQgS8Tb yTZfpCj9bGijN93qj4O1Wy ltW1qrVRPqQSFsR4VfKL6a XIKqPrn3QIN3MSN8VHYmRS StU2VuTZ6iLCHbhYNePZo5 i6iafZzoCEXuQGH3g2ppUH qkwiM1VZ3oob2atBm9r1iu czEgRGVmYXVsdCBQYXJhZ3 NrqVdaJs3vzBa8pUvhQnvq IJF4Aqm3MK2wcj00nko6aD znFIQyuxifMoL9TQxjVGOr isgvSRf5AAdmNBSiuUC0DD EdwELaN7BjKFZtTO2jyyb9 VSG7MFboCIXqMlA2VCEarO DeRGRpaPfgYVzfh211MPH3 CjHfLJ5aV4Kcf6O6oC0tbF CfSNTfgFEqDvSpNELezx1q xXPcRJevw8AcQRQ8ntL7aK AcyMPcLWCqGS86Pixzb6Vj VmtjPSX5YEBtweWia2Ymc5 yeKmJcryKqB5coU3NpAHUv LVQpYQUuMfHxxeHjb9Jnk7 IgdUAruUk9l2qmTXEyIYDf jYndh0clOVT6FFTiV3Q0jT Cel1gaBCflDCDuzHC7qfE5 PSHpdKHzD9GruR1rVMIkMB 1ljot8l1jyMTQ6ALbsGOAr XtP0ndL3UZCwqLEvGKCmnN tzDIvfh525UYM1RaKuPMHn d3ZtB1OahKkgX62wlAthV8 4rWPXtiBqujW5efJrueK3q ZjBcZnMyNFxxbFxwbGFpbl xmMVxmczIwXGxhbmcxMDMz VTtgL2jbTxDvSRTeoLiiXN rea4KlPALwKLFcKkcsksGp XHBhciBJIGhhdmUgcGVyc2 9uYWxseSByZXZpZXdlZCBh tZhye0FgA2rxZX6rK8YsuQ QkldVwglWjPHbiULTtz9e8 eGRmtNuzd1TfnOGlNH14pj OhFWQzTVL7ILDwu0coCP14 fgyfJzTihO90frUoukCpWT Mib9drW8vtuUIus2Wzg2Sz pbPrITkbn0KuBZ3beSLzsq uoxYY7IZMymWDszoUayjT1 dPsmVITbfI4psG8poWfbkM 0qSxOmNlLbOFikKN9zYTNh E7ueySUnIUWsJWCqN6toBc XiiR2hiWciUxoqcbB6MLZe cn19 Clinical Information (test code = [id number]) Shivani Schuler is a 47 year old female with IDA1. Gastric polyp x 6 r/o adenoma2.Duodenal Bx, r/o Celiac disease 3. Gastric Bx r/o HPylori Gross Description (test code = [id number]) g0wroTEfNIXpwANJLWK3XX YtCL3veDoquLa5iPozSOPa osR0fKTtIGytq4bmJLB2r0 ehctABKaklPINqCN6xQSjq QNIdFL3mGfRhADBhOgRvNR BhcGVydzEyMjQwXHBhcGVy pSE8WAOfBH3cplewTJpzPA ddSOVmsjJ4NTBuuXFoT4Zb OQBgSO1oyopuKMA4SYKMTg bwFk9dbLYsrFlsHkSpLrAi YXJzZXQwXGZuaWwgQXJpYW s7dF6RKthuWGU1YQQMBhdc TcgyvZafb4TcaHHuGBGnNC xcaWQgNTEwMDAgXFxkYiBP RnOpYxV4Ywv8DAF2NqU8QL r2COEMWXTpKhhaNHW8MfT3 ILf9AWRyHB5nGLiqfHTyOO fxTdquZNrnT182DEdqEBSr P7YeB7FxEAyvMmRqXYmxRG PwZMBrAEctUNQrH0BLZMBg UHW4XuXkSZMmEXs9XHxsO2 UZBUMgUBNtQoU8MOHqOeO7 XEb0TXOBUv9hSFdzWmStKO d5DOM2SMg3DoWvOHFgZuGo AJRtTXCyKNjrpSVmCX7evH rdHDCcBM3ZIQHjPAypRETd InOnG3VZT0sQZE0eBXywwI JjaFxmczIyXHBhciANClxw XUEuWN0WBBWwCSezAKm6ej YpAUUvAaRiJZJcZ39mv9SL q9XfKF5DAUc4eqJsioivgQ 6yIYTevrOmIVoKsFDsrP1k xbGQNJaiSVIxH1NayaIxPJ iqYZYiku9zrApoFRkoZnUx bGVkIHdpdGggdGhlIHBhdG jwisQlX7S8kjNiFV6jSZAM XEIvvK7uYLBgFJDxk5JktW EnsTlpH5VdxNOlPuRtg2s5 mAG2TYAgndPzPIZeiLJsEW Emzf0sIEekQfJrI7A7ZUGl OQMgk99ctHC0jcNaSgQovK b1yOXwZJP2WH8zsHecfdIi z4m3oN1uFCJpb6O1MREud9 Q2LNOxdqJeuXHztOYkVTGr ZS7rixMpWQ62TSWdXKldTX vfKGE8EUD1VEUjwUSza4dz idwxOu6yHYmiST1sXXytIE 26FYGyYAltQKZxF4OaM7H2 RWpaXYEhLOWujSOqnZ2lku McamIiwAc4VDVyREW8hWMp zFyjSXTtToakzGO4NYAlJe HpzfElt1XbpUd6aPFjPLqu SBTxfL6htN1zODVbEWExud USMocbBFNwYVuiw4EmPGso cGljWHNhMzAgDQpcZXBpY0 7st0KYs2Ghj8kufZffy7Nl qKGaOH6qvWIeWV2Ay5ijLU TjcIWhUGU5IKhfy3lzIGdi AOD0UMQkCbQiVGSfJU9MTj CeWQjfYFk3CUlkOXa5QEd3 HY8XAnDtHZExMil0EkI9Cc EyVTa7FMaaXH9DFDF5UZPg JZPvLAafGSD7MKFkWOi2TG IgXFxzcyAzIFxcZmwgXFxu D61thKPrZSyxYrXwKEvgeF tcMXWxIEN4PH1OTSOuZdXz I5ZTB8bPMG7aLcqszfXuRV CinyDVOjuwCDPzMC4VELZb PZqrBPm8avEyGWQhJbCuRB BtM96up5QOl5XlSB4BVWj5 etTqpcaxjH1qDHXaruWte0 IzMFxlcGljWHNiMzAgDQpT lSCryN0jbzXUPZipEUHsK3 PzvkOmNTxxCMUfbf7nwMmz IGxhYmVsbGVkIHdpdGggdG xvNJXhtCdzogNvN3M1stAg RA6aPSNQMPSlnM9rNOHiRA VuEOJqQVWngZ8cARN1k0Di dpJgMWTXIEGngHkwJZ90pZ BjZWxpYWMgZGlzZWFzZSBh clWvqxAej46buxErb7VtAI 9zmUngTCpNITqeGlQsDH7r WMYggwArm5EbSQ3qZEVnbP GlJAUmnrcxmLMuKGn0kQGs JROxLjWpvWxnp0ZbEHNiIX tnEP07psOwVP5vYTznYU1a RJkoJZ6eRCEmROFeTDBzFu WvkBQpIrJvuDWaXwIlL58z BlXMgDWwj4XfR4rvJC2xqU UkEnbslOGvEKPvaTufa7Av iFCnHHDly7JqqIKdKSavVF 0qYGG8Ln8vqMNfOADgmfR4 y5GjPSirCLZuOcnuDXVvCZ euz6GvZLCrsBGEi7BvSL2T XHBhciANClxzYTMwXGVwaW DPt9OxYENZVkixmHfmIxMt gRZnBuH7RCJxkUCdIYP9LZ 8ruJqzIOQiSEq8LGgaDEGs D1EvU0YyYLzqIfBfWSyyNB EvMGTsBQenUYCgL0YBKWYo CTZ1AwUkHONpUGq6UQpdQ5 BZLVObOYJkCeV4ZGO4OiZ1 ELg5QDCNCp5pAYkaWoZzLT OuQfR4BIa0CxYdSZEpVuVd UKBkWQOqZKidgWTfMZ5snZ adYDUqKJShNBU5EXPvyNBW t7MhEDJwPXjkQyNfJAAIJV RBDY3LVzPUXONpIrLeiEGh OC4TIAVcjyYrBFjtiHommH 7paCYyF2inQpTcOehtjQrn TmVzdERvYzEgDQpcbHRycG FyXGxpbjBccmluMFxzYjMw RYRwxRFWa8GcZCLATmOqZJ NpbWVuIEMgaXMgcmVjZWl2 BTLfbU4fMt1htXFwlE0kfV JcJLloGWAxr4t0wYS1nORn wTV2wKBkqXcqPkTmIJ0ouR WdCHHHJT14zIJjevLeMMBs mU4pVMWiLHJrTZB0wacuYO FTPHM1sSMqx0O3FOcyENU6 rP0eqHboDuSqU9O9INCpRT Hre24qdJB5hdBfTdKmAZLx om2unS1uRMkbnqOkgSwrgd Cie7E2CFPgq2K9ZQDxgxAy uCNbsQPgROEwHiT6DDFjLg T0SRBoCSHpcCUvANHxTZ4u VGhlIHNwZWNpbWVuIGlzIG AyfETvthWySJJicd87Y0sf MHPvlF0ca2gaOpOaLFKkLA VzzTScdHX5DRFquF2frF74 tqVwijMHHW8hmHQqHP5FBI NiMFxlcGljWHNiMCANClxw EDEbYBefc1BzZPvdxYadLH WjIkEpRXjCiCdtOVOON3cr sSJoRXtpRYVSRTaLR6TBJN 5IDKIdjFBLRWT0JO5qHVtn UWDgI4BfJ2EltpL3h2znxL ukg2QljTBgOC5irPTqJB3R XHBhcmQgDQp9 Disclaimer (test code = [id number]) d8vgqBUsLONtn8irOXMnvP FuZzEwMzNcZnRuYmpcdWMx VWwychOuHNvpg2DyM6TgWd AwMFxhbnNpXGRlZmxhbmcx LWIkZJS7kfAjLFUgCVqgBV TuVWjdPu0dgCGdlFarXuCc MFOiu4qsyzFSJQvdZrEaG4 81REZwQKkbw5zgk5DzBBOi tXDhv2A5EBUSykratHd3pQ hfX02sk9Z7CgtjT9feZQZd BPHjK1PbWX1mZZLsZgl2JE F4WMJ8HFYySUQgC7BwTY5c OOZbvGQfBWq3a0hyyJraIP IsUFJ5r3wvHNunnlTeTF3s ro8arPu6g0ggswKwXFXeNJ CqcCHFSMUoF5KtyUatBn7c rXv7lDboWzhiEQM8Kox0MX 1ihs00sni9hLlmLCGzmltg YjQ8SUszNQUpwjnqKSg1FD cyXDKllVD3QAYqoNSoT3Nh DYEgHW8rfci4ZGI3NHwqBP RvByH8NKDjmBEhUJQovQjg SOgxj175CUQ0InErQW7tK8 Gve0B9kU8mjCKdGBNcdLGj SpPfEVZxzu3nwRLxCOblj3 KoEEY8bgS1eICsjZLeJLYx FJ92Ryjvc0GcGxsbr4NqQ7 7piOO5AMnsh1mkIK8vOwK8 ldRzNZloi1biaY1wClW3OC kqLQ2aZU4kSFWdcW7cvolr XHBnYnJkcmhlYWRccGdicm GsSr6noYmcEDT4FTemB6pg jT2nPdQ8HIbvX0adaG8vLB r6FOpmvUU3FFOlrZ4oYK0m sgaae1ecOPtzSWipTKNgkf V9hhM5ABOlzICxV8SbgX7o BEAeKM2xtslrt5ibLVZ2SG pqXJEuIWY0VoSdJMMii2Xs aag1DuWwu3KrlBQyYUaeJ4 3dq557ATAushRbH1zklQBa trktgDVyzrlsLAlbaxF8YB WnwfZuw5DmZGNaYMI7BMcp NKlgcJUsUHSyqVxqh9rcP8 RscGFyXHBsYWluXGYxXGZz MjBcbGFuZzEwMzNcaGljaF zdEVksErKmMHVfEUisF0pe JdYaH5ViSLUkUsLzmOSnW8 ggVGhpcyByZXBvcnQgbWF5 CWqaQ7c7QBSfsqRlhJy2yr XoFnJnUIKvDLC0DAffnWSt XXTbr0DdcjsynSIcSd9rwP DgSIBlvK9dBVOtCBKtWFpk OO0jbOx4YEPSaLGmiFRxYh LZTRYkGV33uoUbQGKBlofx y8A3JMdhZMYgr0SxdSZxG5 uzs3CyOUYoi22vRI0nv5J4 a2dfXPX5GA0kf8KgPTZzyK ArjXDfBQEvf9Gpurdrh0Ht VYBsqtQsv8MiYMGwedLbhC CyDLIhaoTvme3sdvXaOIYc FYMjG7UnkaxjpRlfvxJwYL Scld6nwcUgPWV0NIVVOECt CWTob9CetY7mqHSQIRL6kK Tvpj6mjtRNlMFlROVqkh90 QMOwID9iX7gaDGYtLHGcna GhdVKnp8LtNLYvvGQ2gTEi ZM8FEzIPn41pPYWeGHZWia UsUAWhpYpavSM9jtI9aV7d IChGREEpLlx+IFRoZSBGRE BwEW0iaqSpv5NuzwBrmYas BBRlyNRac7PqmWYnu7GueB ytt4KjrMXjoKVjJC2vUHTp clxwYXIgVVRNQiBMYWJvcm G5g5FzGJQfEBKpTSQ8lTmn mav7VTIrcG8dNVHqP5gtzo vpJYokMJTlt2JhlL6gtADR cTBda8EexYCgaWFAbTNdHE 7kkkCsQEpZUOxMRFY3zvPs YEFhl2DsCQfnM8zbE98hxL khkMe1lOM2XBQ7hT9tJlw+ IFxwYXJccGFyIEFwcHJvcH QvIJQtwTortgMsI1ApptNc hH9edDTbceEoDR5dRO3yU1 P8gDVzAUDcofQsr4rxUZoq dmUgYmVlbiByZXZpZXdlZC Mti5XxELgkMME0QTgozyEh bmNsdWRpbmcgSCZFLCBTcG ZrjPSzLPZ8NSdjlwArasTl OD1spZ9oiUaioW6tmIEmyK K9fyqxSWIuWVDspQugGCBg PN2zjFipnV2iBiCpMdWpKC whJK9rLMFxU4bauOBsXKLg AKXaU0wiRtYkzM1qwPmaZO xjZjJcZnMyMFxwYXJccGFy XHBsYWluXGYxXGZzMjBcbG FuZzEwMzNcaGljaFxmMVxk RnIxMCGtWGbfX6jaLxClX7 TcROYcEmZbyDVbF0erILda BGX2YHUmGX8zdNGcBL13sL Ove9jjYBswsApqce7uQ44w qLPvCQifqKbhQHCsv21ha0 AgGXEdqpHxlh2rEPLsvyY7 fZ4uUGZdqZyuPKVbzTMbTS Ogl5HlEBeimBUfgwFwEJmx BJVgUXOmyATsurK8jvTmqg XtafWyIVSbaJffLJPrr3Jq YFEpHFknv3Buby7mdJMiWL FpvoWInQwjxNAihM8pW1Kf OGIkSOAafv7bOIFruK1rUL utw5XnpitsVNSuKSTuAXLj ggPyxh0mBTRwrFHJCP3JYX sawACxm1PqlbBhU2iOGTV0 NUQwNjYwMjgxKSBleGNlcH FrWZPvvw42ELMsuW2yfRgp BEFcwO4qjE9whWhxaT4lHu QgOfQyPNpwPF2uILAkG2vd fHPiWUYbVOSgZ6yjYlSzbW 9jaFxmMVxjZjJcZnMyMFxw YXJ9fQ== Embedded Images (test code = [id number]) [facility] WQKV1947-22-20 19:23:05* Test Item Value Reference Range Interpretation Comme nts Case Report (test code = [id number]) Surgical Pathology ?Case: [id number] ? Authorizing Provider: ?Dominic Keita MD ? [...] HPylori ? Final Diagnosis (test code = [id number]) z5erbNMdKEFqv6pkNVHziZ FuZzEwMzNcZnRuYmpcdWMx UMeleiPrITzhvGgzQDE8XE LlHV6naEqgsVk0wFyvFXQm fqY6dNQhBWire9qlQKP8l1 bboxbdONCyDTryWh3hnMYg iIdtKgYgEHTtBDb1sG17JZ AjsC0qaFXvAXl5JHRgsBUt pwSdHjOsKHJshZLzyLB7AQ EwZF1iyfhcQRfmSLwuHDTe fgD1EZImeHZkQ4RuMWRtEV 1wclbeOCB0XNgcAPFhJZH5 ZrOrDCWex1Dfazd0DlYwyP FyZFxwbGFpblxmczIwXHBh jfYJTaOGUV8NVWJTVXKES3 gBNPVTWE7BWSDNChtqtZXg CJAlXKNmQFNIVD0IYLNpB2 iIEjOdXR7JASNaPTXymQZo CKIvakSZOfKZGL6GVA4BLS wgQklPUFNZOlxwYXIgICAg XWKgLMxDS6MEZCIuCDZNJ5 TQKHvVSTpkPm1xRUTPRN7Y Z6yMX5OSLROYOZ4PWXnoPO BkQXCgOVLyBX7IVNnqZMOS MN5IQUGEMQDDRUsUKPIEWZ WXLGwTRGUEJ6ODQTgDPPOb wojmBGRmXb2jL3ZYCTGFLT wgQklPUFNZOlxwYXIgICAg ZEMhVLAJW2AGYqARVB3FK7 5ONXKJRWZNLB6SHUSTZQeZ ZD9QAGBXBIGYCIFUI3ChyO FyICAgICAgLSBOTyBFVklE EI6WPFDCAaFDIBdDMQDeCY lTRUFTRVxwYXIgICAgICAt PF9UHPnjRIMUJN0QDKMSQf dBTklTTVMgSURFTlRJRklF SCKLHYVLXV4OJa4LQOWPCa xwYXJccGFyfXtccnRmMVxz j8PpR2QrZkUjZLzhhrCaQB FvCakomdlzGLWpBVA8wxFq MPCmXVhjRURfQMnuRv9xmT MknKfhYaYaMVFts5dqnqDX QLobQbBeF432UPBzWQtxl2 ljq5RbODBwvURcl7H9VGCZ vvkmsLg3b0slMpPoFoQ1lQ JuWYgcZ9wyhyDjzHCwO3Rf sDGuzPj3oJmlF96aq0K8Mm evU5fbRNSiCKWtL4CkUV0c TWTpTac8YMT8ZKL0UAVvZX QtX2NnZY1nPFVvcEQhIPk1 w4qnhFttAWScSLJ8m4mgKL koxrQ6CW2mwi5idPd6v4ia czEgRGVmYXVsdCBQYXJhZ3 FywGlbDy1ovQq1dFxpFclk ZXW3Str6XM9lim59xpd5aT ohKMIferuuFrY1MEapVKMq qtsaBIf1VYscSDGihCT1FZ SvpGSmB0BlQZXiNW7csgp3 VXT2BMwnWFYuKhS4FADgiK PcXQYzsStlNEcty997TZD2 XnDrGR9bJ3Vdh5P4pD7hpN FtZHZnrUQgXoSqLTAjch8v xHXuRForo1GhUFX2hwI9iY IliVZpNKQjDW14Drcwl3Xe LzbyPHM5DFJgtbVij1Pfg5 zvRtYdhcExD8mqZ9ScVDCw FPWvVKJbVbVkkrIyj6Iry5 CimCTzbHe9y8hbQSTmVVZa kBqqr6tmEKH5VIBtC8J4yK Uif7ozDKmmEYFzsQY6maW3 TGNzpEPyG5TsfD8mBZHiTM 4ttvb3v5elZVZ9GRouHXHd YcO4gnD5DCUesXFcQKWtuK mkDEqgz056JQV5FkSaBCXt s2KsD4XtiFxnS87lgKyfN8 6dPJDunPdvyP2bjHleqB7s ZjBcZnMyNFxxbFxwbGFpbl xmMVxmczIwXGxhbmcxMDMz PYoeH6avFjPiPITqhJnyZJ who7LxMIUaJSGbClimzkDs XHBhciBJIGhhdmUgcGVyc2 9uYWxseSByZXZpZXdlZCBh wXuvu8RqN6gtSN4hD2TrxH DwoyGbveKrNZgwZPCvh2k1 sSUnxBlrc9BwhYAtFZ02hk KlCFBbQQL3IDBwy0btWN95 tjkjJlWtqU38llMfbxFxEF Tht4arY1hmeRGsr9Qmw0Qk brVuTYdvo3UcQK9dnNKqif qikUI8TVSomKRmwwJjkjY7 uKkwOCFncR3mzQ7pkIrfdB 6zYqFqIqUeIJemZT9zJKQj R6rsmOJcLYGxRJLpM9wqQh OqkL8xnSmqOdpfheO5MKAe cn19 Clinical Information (test code = [id number]) Shivani Schuler is a 47 year old female with IDA1. Gastric polyp x 6 r/o adenoma2.Duodenal Bx, r/o Celiac disease 3. Gastric Bx r/o HPylori Gross Description (test code = [id number]) t7ktaCIfJUMleHNSALN6CE BmGK7bdWxikAh5jVfkXTNd bhO4kZGaPEzus2yjQCN5g3 wtcfKIRkgfZMEuXW3cMYau INZnSO7lQvKsEPCpBlVoBR BhcGVydzEyMjQwXHBhcGVy tHE8FCFhIA0mmfszYPhmGL fcOQCjumY5GZGgiUEeZ6Fg CUKdWS1rpnefIXO8NDDFAd gkOq3ipOFmfZxxIwUzHgQe YXJzZXQwXGZuaWwgQXJpYW b0qO6CAfyzWPG9KTICTvat WallhBkwy6QknIBcPVCgQE xcaWQgNTEwMDAgXFxkYiBP BpHeMgT8Rzu0LBC1IuU7XV s0DTOPHOOqVgghQUW2BwD7 JFj7RULgRD4sAMokiDCkMG tuNjehATuvQ264YBelVIDr Q2CsI1BtRYgeNbDyJYfhLQ NsBAEzNVrzYHOlR4ATYIOg PCE3LwApRCCeWSe5OLtiY3 DLZNUeHIQwZxX7GFWuKlP9 OVi2ELFPTq4bQSxzEyRiUY j1TAE2LKn9InNgFGQrPrEv LUHxHAFdGHyqqHNwSL7tfM qdDATeZE8EHEFuGAwqCKKt BqVtW6MZC0wTMW9bWBthmZ JjaFxmczIyXHBhciANClxw NSGoRW2ISLOlVJqsEUl2fo SkXPXeTfZnMEYiF94tj3GV l1WeIO5JEEr9tkThlxumlM 8cVPQzlpAaXMtDhIByjB4x awOKOWyeYNPuC8IvsnBmTZ fzYSVmeb1dxBdqOTjzFtCw bGVkIHdpdGggdGhlIHBhdG udrtZwR9T6kzHqEY1qXBHO UPQzpD2dOWCiVJJcd2YgoL RgbXcjL9QejPQnPkVjf8l3 fGL7VWRtomAkAIRsfZPhSN Nkjy4jQTgmHlNkL3A6PDOj CCPvd69vyGE2czAdYnTphH b5tNQyQFQ5UH9uhBuewwAi e8i0lN6fNDYzp3N5LBCyo3 Y7IKPenaYzpVSrgHRuCZPl LI8unsMrBD60QSXuTGwrUQ uzYTI5GNX0URZbjFDrm7rw uusgQm6qVKctVH5rXQdcBB 68WKIoHVlnODPdO3XkF1Z3 DRhnIUIpXDYbyFOurR3mbg ZrsbGrjFr1UCRrHWP0hVJj mSwvZUIcNtqkjTZ0HFEoSp ZkysFqz1GhiJx6vKUpWCmw KYUxzO2nwP9oUMRwRUHwxk MMBjffKALtGAzym5QsWAat cGljWHNhMzAgDQpcZXBpY0 3mg8XZt5Dyi9uiaCthy5Gj pGWyEW0kxQScLH2Nq4zzAG PftNPwDEP8KLbju4aePMbf SZS1YLOcAiPhIVFfZA2EWk IaTRrtOLj4JIfjTIt3NUv9 RQ6AWdTjQAQyJpp3GpJ5Ww GtSAr7YAlpFT0WHPX3JKDk YEVrZKotEQQ0ZHHdSGc8UX IgXFxzcyAzIFxcZmwgXFxu E90eyASgWQjsAgJeGZcuwU vdPUHjEVG3TY8AAZFvFdYa E2EHH0hWPU6hXdbwgaNaLE EirhFZEluxUVCoUF1FWPQt WVpxBXp6wjPoJAPhIgIzAJ DhU58oj6YHm9FdTU5YBIp5 flNomsywpC3oBHIqudBcp7 IzMFxlcGljWHNiMzAgDQpT pLWebB1lxjTPVXdrKBQlR8 EbwhFdUQtqWDUjmd4ihRix IGxhYmVsbGVkIHdpdGggdG wgHPIswKqwwyGeA0D9gbJa DU4eHZCBFPZydF2iFMKoQE OwEYRqLNRzyT7cQTD6u6Pe tqPnYEFEQXCftUqmIL38hW BjZWxpYWMgZGlzZWFzZSBh sdOilqWax13ataYmt0ElEX 9tiShhZLvJQIffCoLuXN6l EZWlfgXoz5QiRT3oWJBikG OgKWJfsgrtwIOiLKn7dCPi NTCsDdGdmCuxc2AuPMMuGE isMP97hpTsTD6yCCjfPU6d XHkeCU1uEGLhTLOfUVInRw XfeHMoKxJlnWCgZlZsC59q AxNMbMQuc0PgC3qnPZ3doB KiIiffwMQbTALmzSrwk6Bh qIIwVNYfl3AmfQVoCWdpQH 0fOCO1Xf7yiECvVKEmccK5 l1KoSEbnWBQaEbpgGIIpUD gge0CmVGQpnUJZm6RgLD6Q XHBhciANClxzYTMwXGVwaW XVk5YlYLVLUxyscSwgNsYt gHScUgO4LFQhcYTlVRE3XE 7apCseUKOeZLs3SZhfCWMm V5CvQ3FhUXsdIbXvPKmkRA ZwRNEtIQcnCNTxG8CWMGWf UDL2LlCcSDRqFTa7WCmqP3 YLNDPqFISwTzA0CMV9ZnH6 TMw4QPUEOa0tHKprJpSmLC MjKlW8TRp4VxSoBCCpCqSu XDNcDRQyRRltkIVhVD2rpI cjYITlQBFvWRX8FUAixWJD v1OyTCAmMMjpKtNsZOPLIB LNGU0YZwKEVWBsWkSgdKLa PH3LBRPsoiKdGSuywAsxoD 9woWBiF9vpMuWoPppzqEzp TmVzdERvYzEgDQpcbHRycG FyXGxpbjBccmluMFxzYjMw TCKxdPNSo0XsAXPHCsYtBH NpbWVuIEMgaXMgcmVjZWl2 EEUdkG2wFg5ztDInvK3tqD DiFGqiTMPwi2o5zDA7dTDv hYV5iQFilAwjXgCsHI3akB AtVPUIVB90oMElolEpENLw kW9xVMYqGQMvBKB3cmyrHQ FKIIR2rRYua9W9GEmkDKI6 lW9ydYvnCfBgS4O8JRYeIX Zzp38yjCP2fkUuEsMwYSYp hl1dnA6mWRsgrqYeaEzyzf Qhq0R9RIUzf4M7PNQlayHk kCHfaDFlNFShHmQ9ZBYjQx U0ZHUtNRHdgXIjJKOqLV3z VGhlIHNwZWNpbWVuIGlzIG OecFIbluZwTMYlfb71S0fk BQHeeQ7rf0jhXcBhVLVjIW UagPFzyZP5HBAvrE8bfT58 xrUwjhSPLF3joINjLZ6RSI NiMFxlcGljWHNiMCANClxw MUUiZQvhn3PiEVydlSyyMJ WwDiPjTEgDeFmbEOQKQ3dl aALlLZhjNPPQQYnCQ8WXKW 2FCLLlmCVYJDY4HU1bNMre ZAAzY5LfR3EvjjA0o0hssM osm5QuzHImLK1fmCEuFV1Y XHBhcmQgDQp9 Disclaimer (test code = [id number]) z8diiYIdCMTfo5cgAUSvwS FuZzEwMzNcZnRuYmpcdWMx JWqkbfBaQDwro1ZoJ5HfFi AwMFxhbnNpXGRlZmxhbmcx TWAlXPL9loBzFORtXQvnJB EgIEytRd8miCCyzFpfBcCz EYGcy0rwmvJOZPbsTtBiX3 43KJIjRCluo3tys9SbGMAo pDAzn2A6VBQAnejemDe6nG doV84zh7N3PobeA3jeSSHa WMFvO5HvJU6wQMDkIjs9SA D1NRA8CWVuLTRxG2WuYI4t PJIfeHQyMNo0h4xseVveTS RuHIU1u6seQProndGeFC9g et0ipBm8u9jrmaOzHKQvPA YozGGKQOMkE9BxpIdfLw4j kLc6nDxeJehtREM1Yyf3DG 4azq73khn0pAioQZDwzqlr HeW5FUjyVUFqomcbFFs9VC iiBOXtdQV4YCNqyYSyK7Gh OJJwVX1aexz2WWM6UDbqER KiZeV8YIAqbPHsQJXpaGev ZUsul910UED2DaSrPM2xD1 Zqq2N6lB8awBCeSFSadVBc JfQuMRFfdt4olQSwNFfex6 VrHCU5nwH5xAXfeMFtITEh FH16Jbnsv6YuKpvhy9QsV3 5fmUP8EYhhu5khJI0oQfH1 rfOoJMpbl0qraA4tOqI6PF heZU6aRN3oYPLezF2hkltw XHBnYnJkcmhlYWRccGdicm EpYi4mhGxpHMU0YNccE3ao gA6wGaX2IFpvE9rzeK0nGB f9AAestMS3HBBaqO6cMH2a mvetf6ngDMfbDOxpSPHjto R2ulQ4EZLegRCjH0HoeU1z LDCeAV5fawssr1rgMDS0CW asMSVcMDO7FoGtHLEgd3Jl rca5HyEcf4EynUAnHNkeM2 6zg513FRAjvrBbM4iidNFu ozzbwNXbyhywBZfowdH0VZ AatkUug6SzLUApNDD9BQbm PNwnoZKaPADjsZiwv4mxE2 RscGFyXHBsYWluXGYxXGZz MjBcbGFuZzEwMzNcaGljaF wrXYazSmJxXTIbALfqT7oo ZkToB0KmUWZcTpEqmNNdK3 ggVGhpcyByZXBvcnQgbWF5 BAkvS6a8MHNugvXiyJs8yi MqOoXbAUHqIOP5BBvktYCq PLSzg2MptzstyGHuBs8ydT SkXLJsdD3mJUVgCKNpSDxi TJ9kpMg9KGUEbFOwgFJjRx JBUKQlUD33arIySTAKgdwf c7S6TCirLUOvo8PomLUcO4 bbb1PtSUFxg91zNU7ec4O3 x3olWRL1EM7ni0JuXGGhkL TxhCOjSQHcf7Ylvfmru0Mi EWIprcNsb3LxRCVwzzLfiI UjSQFptuNvjx7zriNeKYSi VVOyC6AreugifTklamLkCM Mcwk2lxgAaRWP3ALRHWMTn ZHLum0LehW1bzNDWNXB4mE Xaga6aqyLSgDXdIEXopx87 YLSnHM5aU1tfQJLgHTXhfu LggZOnc3HzFDTjtQR2bBJp MZ3PIhGIu92lJEFzXNGVea DqJUVvpPtjxPA1lrV2iT2g IChGREEpLlx+IFRoZSBGRE WhIK2vplTcv8IhyiImjQts JMPfhZLau2AxuKPyd4OrjL vbg4CxiPEviXMqGV8sTWNi clxwYXIgVVRNQiBMYWJvcm V9r4XlHAFqPQEpTRK1mQgc hgi4SVSsjZ5gKORkW6yojl szGOjbVEQsv0FolO3ppZMB nKZjv5OvjCDwgSSEdGTfRN 3wgjRlROfUBDyTYFW1ioZa ASXxz8NxLPbgZ3ttG84xnY luuGz1gED9QVO8lU4mAok+ IFxwYXJccGFyIEFwcHJvcH XpQKLrrAmqnzGdO8HqsvCb eA9pfPLxqpJeCH3tYS9zM9 Q4zHAaNOMrxmZra8qzLDoj dmUgYmVlbiByZXZpZXdlZC Gby5ZpMQftGCT0PXfrngDe bmNsdWRpbmcgSCZFLCBTcG RjvHNuGNF9FBgeepTtttLd OC5cwD6rzZlgbG7cuNKkqL J4djgvXZJsEKLhyYckMMSg IQ6kaUlcyI3sQtRfIiStOW vlEN5dXXNjR1tieFEtEFAi TBZyC9jzUuJmfW7cgIumZI xjZjJcZnMyMFxwYXJccGFy XHBsYWluXGYxXGZzMjBcbG FuZzEwMzNcaGljaFxmMVxk CdPnQGEbNCmqP9ziEvSpJ2 YePNGaUdPwzWBwV8jrQQgx ZCH0NMGvLF8umIEiJL51yE Bah6jeUEaxrZuzdu7mE24k aCIqEFsvlQgyDUTtl91tw5 OpBQMpjfIdhn1iRCTureS0 cP4uEINsjDjxJFCqyQFuLB Gwq5ZyOWrgxYHslpMhCGtm LOYyCFAciTEczjZ7sfNqzb ZotbNoZWJwcNvcNIJdm8Et LOOxKIsne0Wauh2mjFJgXI FtijQGoMimlBXlbQ9gB9Pt RAAsMDJauh5dDPOqtB8dHM isl4QctswrFTTaBVKuOGAc qwXhty4lCWZvuTUDKV3RBL ltjOAkw1TtbiXtQ4mBLSF4 NUQwNjYwMjgxKSBleGNlcH QvWMSmwe64BGRecF2zpWal SJYccM6fgV4eoGresY5zEs JqAxMwKAogXH2jKPKkU0do nHNdIUTjINOlO6fyRbIxlX 9jaFxmMVxjZjJcZnMyMFxw YXJ9fQ== Embedded Images (test code = [id number]) [facility] [id number] 19:23:05* Test Item Value Reference Range Interpretation Comme nts Case Report (test code = [id number]) Surgical Pathology ?Case: [id number] ? Authorizing Provider: ?Dominic Keita MD ? [...] HPylori ? Final Diagnosis (test code = [id number]) [id number] FuZzEwMzNcZnRuYmpcdWMx BFqspwNbJUoywAmsCPA1AR PiFA6pnMhrdYg9cUumNTYw teL7zHNtKHuzh0eyQTS5t0 nactojTJRiUYqqOq7waGBj xLzjZbOtAHLmWOi3vJ28NC CyoL9gaUDrMHx4NXKubASe ocQiKgJbXMObdVXuxJN7GH OsUS3gktvuJPxkTLjwWBMt niV4PZRduBIhB4ImDTRpWS 8lwaofRXF6FJieNBCrIZD2 YjSpHRRwa5Eooeo9MnRhgO FyZFxwbGFpblxmczIwXHBh awLSVjWKDQ5JSKZHOPYUJ2 hHPHEWCF4KDHIEOdcsiEOv XGFeCBSdETTCZJ3NYAAzG9 jDDgCxIC0HLSObRAZiiSCg JYYaqoUUObJFIN2SXH4NHG wgQklPUFNZOlxwYXIgICAg XTRyQGoOO5PSPRNuFGNDB8 UATJiSVKcgGi9kNVLERO1T H4nIR4GCRRTKRA5VJLhfGL KwHIIlYFRcJG5CUIspQATB SN2FVIRGSYWJRCxGRLKWXY BOGAzWVPZAK3LPQLsQHUEr epogYSRkYv4jN5CQTMGYGT wgQklPUFNZOlxwYXIgICAg FGZfCLGIO5QRMjKMAE1QF0 1TTGQPNHGAET4SCSLMZXqY UC1EQUPCYYGCMWPWG9QgvJ FyICAgICAgLSBOTyBFVklE YV4XUOVYHoWUVPcVMQUmKC lTRUFTRVxwYXIgICAgICAt EW6FESjwLGDFYE8NOVNPOw dBTklTTVMgSURFTlRJRklF LWEXPITYHO6ROy0FQAKZKc xwYXJccGFyfXtccnRmMVxz l5BqQ1CrOdWpYBbssnSsWU KnNpgcqsmsQCRtVTJ0bzGk SEScJMmwMKEpVUjoEk0fcO VamHcqVkLtUYFum3tiahKW ZBoxIuNmN460KUUuEGmwh4 gtz9UiIUXfcIWdd2B6KKLY iutppNx5d9uvUfIySxN6fS NhSArwT0yrlyNmoSPnB0Ms fTLanYc2xJvpM06sg2C6Un jaD7yeFYJlOLHxW7MhLO1h WNEeYdm4PTF4VBG0CKXlUL EyL3QyAD1iHEOmdXWpPOy3 z6eicQwlSAZyVCY7a2skQC vaowW0IB7saz0oyDc4y1fh czEgRGVmYXVsdCBQYXJhZ3 HnvGouMi8mzJh5yTbnIsqy AVZ5Bqc7KA4bkm79ogg2vV pcNSMzwmikMgN0NMmzESUv egqePRu8QUqbXBLfuKH3KA RqvMPqD3QbVAMyNS3rhtk1 MBY4FIdeEGEsNfX5HVNjyF SnHHGabGvoZLnqt884JWK4 ZjMsEK2sY0Dpa8B9bI8obA XvWLWpsZZwXjYeKJFmbd9u vFFyUEljb0CzWBW5nwL6pE ScePJzRPKgHN35Kzwmy0Rf SjlwDAF0YGHmodReu6Bhz7 vnMrTcujRhQ2mhC8KnRMXy AJAbRWPpIhAoogUfv2Dqz5 GwmHQfpVn1j6owJXOyXTZf eSkfd0shLFK0XIUyN1C5yF Euu3dpNHldVFMdkME8brS4 OHEplENjH9OytX1nOJHhPK 1qgzt7t3pvQDB4IUquKIJa KvS0xzJ2KECmeAHaWZMsnL zkMXyzs098WJQ9FiZfGLFw a6KrL4EamCreA84kfFycR2 2qQQCpwViojE0riEovuT0p ZjBcZnMyNFxxbFxwbGFpbl xmMVxmczIwXGxhbmcxMDMz VTtyV6wlQsOgCLSogPbhSR fhu9AfINWeVFXrBrvjkqNr XHBhciBJIGhhdmUgcGVyc2 9uYWxseSByZXZpZXdlZCBh kYpit5XzF0kvDA6kZ3IwgC DghzCzuyXjAGwkDUFuc9z4 tTQfkQegn4IkmHYgQA72lp FxGKKmQYY4SVZti6ffSJ53 wmupJoUmzP67vvMqvpYpZR Sjd2zdE8baoODsr8Asw9Lr gkWpWMene9ZdMR9okYObup wasMM2QSVlwMHetyAwxzT6 zDugMPHetU9peL8uoSgmsC 3bKhOjWzDjJJfsZK6vFDXs B8rzlBBcOMSiOUKpB1uiRx HdpU5ovKvaMndxypE4XFAs cn19 Clinical Information (test code = [id number]) Shivani Schuler is a 47 year old female with IDA1. Gastric polyp x 6 r/o adenoma2.Duodenal Bx, r/o Celiac disease 3. Gastric Bx r/o HPylori Gross Description (test code = [id number]) g3dnjAEqJMSonKFOGAX0FH VmDJ7htVxqjSg2eHtzYLMq inN6aUSeSHyye2opLXR0r1 rfpfIDWhouEERiRJ8jOYld YWQgFB4wUzRqNFKxQbKlHU BhcGVydzEyMjQwXHBhcGVy iSZ6TJCaQP6xafyaMCprMG fiUBMblpN2SQDdmWKdC5Dk WWAoTM0uuqnfDNR2QMXOLm dfAj8oiFNozUshIqGoKgVu YXJzZXQwXGZuaWwgQXJpYW k2aL2JCszkQOR4XOQIJlbz DlltnLptk2SyhQJtYGMrSZ xcaWQgNTEwMDAgXFxkYiBP UoYwYhR0Pew5UAJ6WmK9TH o5XLNFHEKwOnmdUGY2SzK9 SNt2DJNiMN2eBDxdnLGuOE wePpekHGfzI073AEewYDPi Q0KfA0WxKAmdXrAbRFslXI KqHTCtKKpnACEcD7WHFCUl WZL9HhCeVISbWBo5OAktI0 PVNHErHICjXfU5EHXqBrZ8 DXg7CPTYVt8cEGbzUwLbMM j9DSU1EFu8LdFtZXUcUoYd NAUoHCEfRZgvtRDtHU4sgX lqAZQuDO2EMUZbFIjlLBFx DwNgG7FHW9oYUR0tGPlkxX JjaFxmczIyXHBhciANClxw THUiKN0AKBViBKzyGOc4ko KzGMKlEsNhPAMjZ70ch8ZO m0YwBJ7CIAa0pzIwfaailS 6oEVAkodNkWDiEsUWgqV2e sdMLFVhsSOJlV9ArcrZyNK swREJztc9njVmnXEqfIkYr bGVkIHdpdGggdGhlIHBhdG tbqaFwU1Y0scOaFJ1zIAMH UWKkgZ1dMXApHBWsb2MckZ PsiVckK6QfoHZkQmCil4g9 sEC6HKCtmwRmIQLylELiGX Zpzq3yVThlEeRzW6T2ZRQp RNWvl69srMR2thLsBmBrmF v9mFNfVCL7NL3lnWvvgoGs t2m2tU2oZQRpl5Z7QOQjt1 I5AIHscgPuxHFhjGEkOCWe HP3brvVrTL04DIKzMKblBJ qzZEM8MSH3CXPrkMJbv1ue ynczCs4lGVxpVN2zINvcXM 75HOFzFCgaTNNkR7QcW8E8 QIagDCEzLDWwvQMlzC8rqq OnyfUztBt8QTLpDBQ8pACj nPjzDLNvEwzlcUZ6MEBuNf FbtuXhc8TrdGv5cVLcPBoq YPFruQ9rgK9xSLCcEFFqae EOXkqlLPYnZWcnl8XhDLgy cGljWHNhMzAgDQpcZXBpY0 9up6MKa0Rfv7kdhIzbo2Xq eJBfOE8wmMDkQT8Gg6pmFZ FpbXVnKZJ3VDbgy3wkZNzc WFN9JHSgQpGyFPOxBF6DPz QyMFgpDRu6UQnfXCh5DHg6 PL0SQoWjRQIsIvy0KoD7Zo HgXSf0JIthZC9FMTC9BKWf JOZkYFqdBOD7PUPbCUw8MV IgXFxzcyAzIFxcZmwgXFxu I64tvZMyPLclXnRyKAzsmE ipYWDuSDB7VC3LBHAbQlEh I9QCN3eYKO3oEvjvjvNsWI PwnoEXZtvjGHVrWD9YTAZc XMgyDTy2wvMdRQBxGtCeLG TnN71if4GEx4NoNA4ZFEn2 bfJuaronyM2qZKLdthOab1 IzMFxlcGljWHNiMzAgDQpT fMUunV8wdaLRTXqvWPDwO9 YsrlJfIHdcEESywj7ltQiy IGxhYmVsbGVkIHdpdGggdG nmSGKuiVryxaLiV8K2lsGd NT9bRHLJQRRpkZ7bFENwKL YvMHIsXFDzcG3aDLL7z1Ue ymYdCAVCRFLuqEswVQ30dG BjZWxpYWMgZGlzZWFzZSBh ngCukwSsg39bzeVml6XkSS 6spRsyDKfJSJbhMrRrXE6c NJXgoqBhu0JeVC7dKFNosN GlXLWcwvtvnVRdXJx0fLYv HAHsNcOrpBich4SjHHKyPN btHE68fsLsCO4yZKnzWC8o SDjmHJ6xQWBvBKVjODTwFx ZnaDQmUnIcsZPlXqAcT13e CfYFwPHhs7UgY9avCQ7tyU CtOeraqRQiAFHfvUalm8Qw oEScVODzs5YaxRUxEOdsLC 7bVLY2Gr8kiFJuCZIrcwB3 j1UqGIpeFWPuQyxtINOlIQ iib9NbKAGszVSWf8LoRV9T XHBhciANClxzYTMwXGVwaW VPa7GkSAGDErmlfRmoOdXs zZVoNcZ2CJEppXXdSXC8CQ 0adVblKWIkJBo8RMbgLVDb R0SaX2LdLCbgQnBdSBgrZH ZqQCFzWOmeMGMgD9JGSJFc NBR4AiFpXQJkCMk3ISajJ4 DTHMLuOSTmWlS5UVM7DnO9 CYs6SHWRTg3wIUjzDjEvCJ XkFkY5UNh5VzFiBBXoKpGf EQCoFMGrIMbdcVWiWR1adV vySYLgSYPnVVI7IHEioNIZ q7KoQRTcWJjaOoYdWLTFIF XTGF9APkTVEUPrLmOivREq AO3ZLDOmlbEkUEljsSazpC 7scRBuK4piAzAxOylifIhx TmVzdERvYzEgDQpcbHRycG FyXGxpbjBccmluMFxzYjMw BPYrlBVWa5EwXPBFVmCgVP NpbWVuIEMgaXMgcmVjZWl2 LMTkvK0dAt9poQRzlP1lgF VcHWczEUSid0v1iZK0mFGh wQM5gUAxsYbhAdTaXE5maA QbGYPKNA07eUTrtlPqQGBz qL0wBEHjKIOyUFT6pnyvXO EHFFA0nPGks8W9GFaxXQS9 oL4hfQqtHsJmK6Y3QUFuJP Fsu88flDT3diOnEnErEXRv ai8xiM2yNPwdrqBckQygfm Wmu5Z7ZHKvv9G5YFQwivIt tPDotTDtYFRmRxG6UUGuLd N0VPFcBJFqbSFsDXBlZW4y VGhlIHNwZWNpbWVuIGlzIG DetKNbntVbZJDgrr59R9io WIBaxE3bd0mcEmPaBFWaLP BhsGCzeBP7ZIGlgL8lmE19 tqFjseKQWB6rdLQrYO1IAK NiMFxlcGljWHNiMCANClxw HSNeBFrrh9NgPRcrxEevAV PkNvTcDRdOiMbdQGMZL0wf cVOnRAmjZKYNMSxWA2VKQH 5IFDRcnGETXDZ7YU8cBPem AYBzN6AmI0NsupK6x5qblJ czy2FdrDMwOA6cbXXgGU3R XHBhcmQgDQp9 Disclaimer (test code = [id number]) g6adxYKiFEChe8pqCWWizM FuZzEwMzNcZnRuYmpcdWMx IEcbkkNwQAarq1KhH1SzRq AwMFxhbnNpXGRlZmxhbmcx JPUyXAL5jnPyRIQhGDbiPC DqAGesBo6ihLYpwYloEiQt SCEtb5nzfzMALQxgWaVxS9 87BIOiYZziq1xrz2YnGZMu qCGjt1C2WCJCggwxuJn5tF roR68me2M6DpqiY5psGQMf UCTcI3FbAU7mDQBaJlm6XP D6QCD2VCXoWDWrI0FdSO0d BDKnySRiVHq2e1nvnDhpJH UrHJA9g1ysYFnywzUrFH8k lt0qaIy5l0eserRqKNPqBL ScpJKYJZRyN1EwrYddVd8e pSh3bCxqUkvhQIC7Ejc1SQ 1hqf78tzr9jOcsXYIkcgjl VuN6OQepNUGugcdyWSc7FY tyGHSuuBU9SSTvaTPxY7La RQOvJX8avio5SEP3WDxhXE FoQcG5QQWfzPZqLRGifYxm ZYwab871STO1FlAjOW6lD4 Adg5X7sY4cfPMyJJLugTQy HoFlXBGffj6gqHDpIGekr2 RoVVL1joR8eISixDQtQKJa HG76Reflb0YjEtigt1PjG5 1foPT6KVffm9dcMY5qNzO4 yeQxWQrox6chdP7yQzP2IH tpKK5aQY4dROHnyG2icqnd XHBnYnJkcmhlYWRccGdicm BnYn3pcNicDQE6LAhaK8gh jO3aKqN3VEziW9ixpG9nQB d9TWxwlVK8IQCtfJ4pCI5n cxsqc1vuIYjdFWwhUFGbdq U6miB0FTQvyENnT0ShaJ7v SUCwXY5bjdovw2smVBJ7FP dpADVsXHD2ZvMbDXCbd0Wf ckn8FcNsa6HuaVQpBSowM1 1uy482BMMkwwGlC9fcaNGu miwjwQNyovgwCNfadrH0AK JurhIal6VvAJHtNCZ1WDyg CQpuhDQmVIOwjNzha8cxE2 RscGFyXHBsYWluXGYxXGZz MjBcbGFuZzEwMzNcaGljaF rvABiyUmAsLRHbSWktO7lh UbZoH3WjALPlWkAwjIGnP5 ggVGhpcyByZXBvcnQgbWF5 GBkeB1r4KIItmpDpvQv9es MqUnUwNTUkTLR8FVuhcOPx QEXii6HmekrarDEqJm9avB KkWBXvaA6sHFNaYZCnOQuv GI4qnCo4UYRFzEUbmIRyQx RDJMSqZB65xgNsUXGVfhqd z1H7MEbgZOJhj9PyoGMrZ6 qwu5RbUHYjg47jVX2cl8N7 j9qeXEE6RJ0iv9RlNYFsfN LriPLpCTOea3Hojinyz8Oa AGOtepLtw9EnQFZfnrLkaL OpNGEwemNrkc3dpqUlJDDd ISUrK9TsblmrlLhysnDbSH Fktm9fbgCpJUA6ZOHYEKFz IMUwr1FizM6ydCEZURQ2cC Fmmi5hvxRHoOLkVFWmpb80 UQEgJW0mL8miETFiBPKjuq SsqMTro8DvPPWtfGT6mSJg ER0OEkDJm66fBHXpAMGAav TfYETvrJtgtHO9dkX9zO5j IChGREEpLlx+IFRoZSBGRE UlGB6zlkYvh3IsscAmiErv QUUvaMGgx2QxzUZft9SfxK dms6EktISmqJMaUC3xMZYo clxwYXIgVVRNQiBMYWJvcm T7u4WuWHIqBHQdEHZ7kFko exw2NPKcvW9gRIJzZ2iaxl llPOhsKLNjj1WpuI3iiNXS bQZrw7CqlYBjfCXQiWPlFQ 0nwsSyYUgYGVaEOKZ4ipUi LSBfw5DjTGgvZ5anK96wxA vcgSy6lPQ3QVU6jH1kQpn+ IFxwYXJccGFyIEFwcHJvcH BkBFRodHuygoTpB2KxxpUi uG7rbUCgxuLfUB6xXE6iW9 X2cZRlVLLibhTeo3btLRdm dmUgYmVlbiByZXZpZXdlZC Snb2MzOEefSZS7JJntlbNy bmNsdWRpbmcgSCZFLCBTcG CgxYMvFNR6XXabjwSrsjDm ZV2hbS4quGzpvD7qfEItkL G5nzemQMNaBGIczRmoDAKo JP9ohLqlbF3gOkYeMjVyHA txSG3tMIVqR9qaaXXeEKJw UPIqP5hvLeVfgZ7rnWltJW xjZjJcZnMyMFxwYXJccGFy XHBsYWluXGYxXGZzMjBcbG FuZzEwMzNcaGljaFxmMVxk VgOkXDSmNIgjZ2uyXgSgH6 CqHYEuPgPsgOHiC7xzAZmj JSM4XJAeSA8zmRIaDH05yJ Jqn2mfMWdhzYmkgl7kK48u lOHiYRfoyPahEIPhc97zi1 DpUNZlszQymi6oZJIawoK0 sL2dEQYloIyhFJBzqJIcDQ Npm9FdUDkgfYMqynSeCNvb ZMIyWPIucOCcqnR2cyRnpm CbgpQiKCNouWegTWPxx4Ou HIIvQRxma9Uuvl3chLPpSB LdwwAGzGcpnUSmfQ5xV9Ir GVTqRLCtlp3qQFYcwR3zJZ vly8QvmnqbMURbKOHgDHOv viSbrz2gTYAinEQHGR8ZIX iedLSll7EyoqGyT7kZMGU9 NUQwNjYwMjgxKSBleGNlcH MyJQMqwe54JYXkfH8fwCkq RGWflG3ajA6kiOpgsH8aCb EhSeObLXqrRG6aGJVeN9bf vPNwZBAaHDJzQ1joQuNfcS 9jaFxmMVxjZjJcZnMyMFxw YXJ9fQ== Embedded Images (test code = [id number]) [facility] [id number] 19:23:05* Test Item Value Reference Range Interpretation Comme nts Case Report (test code = [id number]) Surgical Pathology ?Case: [id number] ? Authorizing Provider: ?Dominic Keita MD ? [...] HPylori ? Final Diagnosis (test code = [id number]) f3nqkMGaUDQxl6xfQOTviD FuZzEwMzNcZnRuYmpcdWMx NPvjudOlNEwzpEfzRRS3HG NpYJ9odJcpqMi6mCceNEVj uzU9qKYsWQfdt1zxVUL2m2 lcbhahSJNtRLutYg8hhMOv oRvuElFvPCArLWj5dW29LZ LlqH6ryLUkDFr3GRZzaGAd ldRnIxZjLBYioDGnbBF2NR LrTM4uqxouHEkaZYxcKPPj yaD7YUJyxPJzU3WnVMAkZS 3shvutTIY5IBmrFGAsTBA0 JrOyEGJgi2Xoldg0RoTccZ FyZFxwbGFpblxmczIwXHBh noEIDoVLTO6GUXBNDCMBE3 sPNQOYJP1RUCSMVnjfpSAx OQYyTFLoZHOXRT6EGTUiA8 cAUiEqSQ1SGHLtILFtjOBg MUHhefLCQkWRNY8CWY2VNT wgQklPUFNZOlxwYXIgICAg SHZlTKdQE2EDGYMzBCSCM2 BMOMtFEFsgCd0bTMZPUV1Y O4yDX3EPLSEYTY3GBMarUC NkDUTkTMDcGP1SNJyaEBLG VU5WWGEXWRRADGnKQTWTPT WBFTxNUZBMT6JAJBmEDWLo jpgpIUWpJi4mC0CKFNWSSD wgQklPUFNZOlxwYXIgICAg BVHrTNIWK2KWJqRFAX5TX9 3MHMHUGGWHQK3LLQXQTNgO PB7ISMEVOAHRKFOBK9CyuI FyICAgICAgLSBOTyBFVklE CC4YJILCKsDHIWpATCBnCC lTRUFTRVxwYXIgICAgICAt VY7WBPdcSUMAJL0RDKGTLf dBTklTTVMgSURFTlRJRklF NJEDCPYHRB0YFk8CSQYJRn xwYXJccGFyfXtccnRmMVxz a0OdM0ZrJlEoDIvjqlYuED FdSxalwplgAYQpNPO1dlAf ARXmNCdtZETfYGfwWn2boG AvqBgtGwHtEFLwy4qqdrXW RZhxQwVwX004UTBrCWbvx2 wxc4NoBZCjsKNsp9V1EZRU jafirYw0r0diMmPjEoA3wT DoVJheT8etdtZesSGcK5Fk uRCgsGe1oXzyN06nx2F4Bw qdU9dlYFYlALHkJ9XiNO5l FRIbMco5VBQ5BME8RWKoEM SkO5VrXG3cMQCzlMVmUXl8 a1plxIamMNUqDDE2c0lkBU jhnbD3XS4evt6dsAv1e8kl czEgRGVmYXVsdCBQYXJhZ3 MgqGtqVq1njZn9wHgdSxwz TTM8Ogz6TP9nst85fpa4pM lrLTOpiiabDxW0BMdsFDTx jzzhBLs8DInaEEUyoDN3MK DpeLKmD0AfHNZvXY4iqvd7 XAG2GEadGJZcMmB4YFEewR NgABSaaOsvSAbtp648YKA0 TrVgQL9lA4Wks3A3wT9sbA ApYKHjkYGaAnBjRSZchh2p cIDxWZprw2OvOPF9ebI0xX AlrXYvJEDlBQ55Elfzz2Sm UuofKAW8VYMrioHqz0Zsp7 kbSsCrteGyN0qgK9BoDVQw AOPiHIUqEeAropYjk4Wkk5 LwbSBzuYj7k3kyGOOhTLKg oGson0hwXDQ4GXYyW7T2gP Ldm5qzHOexCDApaBL7nrU2 WLZirXCtK7KevA3tSNQzTA 0vlot6n1rfSJZ5OXpdQVWs YrY7kyT1TEZalOGvZMXebK qfXIqsy916OPN2ZiArLGIi w9LmY4WabLxvY12rtGcnV5 5dSPGjtIzrtD1bzUpykD8n ZjBcZnMyNFxxbFxwbGFpbl xmMVxmczIwXGxhbmcxMDMz BHkwI2wdOlOgEBXmtChnXA hef2UfTDEcIBMwMcgexfPu XHBhciBJIGhhdmUgcGVyc2 9uYWxseSByZXZpZXdlZCBh aRcqy8TjO4smXZ5jV5DleC DljwVpybHgTWvvQTOtw7x5 yXTaxCaoz7OwiXPuXS77no KhEBXkRQD5MONfo4iiKH86 tlaeBpEkvQ01zmGhjkLfRG Lfq6jwH4ugbFJmv7Jbp4Tm taBlLAluo7EvTA3uaOVenb hjaOS2VVJwhFDifkAladL9 gIwaNKHnvM6hlA1ptDcnmR 7rLvRqCsGjZMfaWA8lOQLs Q9jctKRaKYLwHJUlU1xyIg KuoE6mzAsdPmdsbsY2OGQn cn19 Clinical Information (test code = [id number]) Shivani Schuler is a 47 year old female with IDA1. Gastric polyp x 6 r/o adenoma2.Duodenal Bx, r/o Celiac disease 3. Gastric Bx r/o HPylori Gross Description (test code = [id number]) n1voiGYrDVKsjMCYZQE2DK AuJP5qcFbgaIx9gGxwNAOm ewR2tVNoZAktq3ncPFW3e2 blrfZRKyeyCYAwVA8uNPsb KZVwWJ4lDsXqUYZwSoKmIT BhcGVydzEyMjQwXHBhcGVy sZT9REAaKO8pfsnyZGguVP xaZTPcwwN1BTTwpOXvI6Qx XPHbJN6hodvzIAV1NBKFWc npQv0jzSSzxHzfDgLeLjRb YXJzZXQwXGZuaWwgQXJpYW s6bE6CWkxnSOT2OOSWInfk JpsalAzmc8UvlRDzMNDkKU xcaWQgNTEwMDAgXFxkYiBP EwLsCxD5Ubq5QOQ9JqV0NC m8PAYEUPEfIdplBCC7YrL5 USn0KLEfIG6xFLcrtQVvAL agMwwnRBzvH683HQcqMPYs G0XaT6VbMPxlYtKzNCckMX NbVHBvPPigAOLbI4GYQVAl VSM4ErMgZKMmRQf1ZZaqD3 ANQUHkGWHyJvY0QJEqWoB5 ZIg5YPNBEq8cGRsoZjBvZU o6ENM6NYw6XgBiCQTbRsGc BFLtAFJcPLvlmZMgGS6fwQ tpLXZtYT5WDQCsHPztQEGo AsKnQ3CAA7nOZU6sZWindC JjaFxmczIyXHBhciANClxw UJBdFY4RZEVjPGprYTj5kk FmPZMsAtKmEXKaN02jl1VG y7XnIY9DDZt0iiFmwothjX 3tHCOxcmZpZKoTjEVfhN7n hnPEKYdjUUDgK7WldrPfPY pzEINzbo6rwPsjSCacGkSy bGVkIHdpdGggdGhlIHBhdG jyiwQhJ0O1goKrNJ6rIDYE DADvwD2mFYTsXZExs8EybV NrvSckI1NfyFIgRoHiq9j1 sJS9TKLudwJqZJFvlNSdZK Dusv8iKZkaGjJhY0S2TZAz MVWni46caAS7prWcKoUkeV g3xPToYYJ8LM8jnBylinAg i8g2jM6tZORxo6E3QDJxf2 J3IMLthtOmbQLqxENxOPIx WW4wgyShZS60JOQbFEkxTK cyOXP8XUA8FTYtsXMyp5in orhoYx4nDEpiRH5lKQrkVX 60TWThADmpGYUrT1WaM3A7 ZYfoQPCoWANyuTLroV3njx PicgQwuLp5FIUpHAQ2mKRg mLkdBHFsWrssmAZ1XPLrSj YwajJpa0MpzIw2lXIcUYfh SIXpdV8ajD9jRJDrMNLxql HHOpqpISMqFAnht5XlTSxz cGljWHNhMzAgDQpcZXBpY0 2vv2VQh1Mkm0ygjLuxi9Rz fQAlWS0akSYpPW2Xy2xdYL HapLUhEPC3EYgpu9lwBCbe YXR1ALGlEtLfBONrJZ3SOl HrYTdsRXm9EEkfXTq3ZMe9 FX2YYmGfFNJzMfz0PwK0Xn KaFMx0AIwkJE6FXND3APAx ALZhSUuiZHB9GUAhCEw3HZ IgXFxzcyAzIFxcZmwgXFxu M96bnXElNQxiDyGzRHjehM zmTKYlJNW2TJ8IJJWsFbZo M9TMG1iJSU0wUydrqbDrVF IsmpGMLydqHLMwBX7RLUPq ZNwvBIm3wsXqBHYzFlArFN NuE50pi9SSw3TiDS2QXKq9 rgMfcfcumG9cRIBsjxOtd0 IzMFxlcGljWHNiMzAgDQpT qSJmfF5qshCAJDghPZXwZ8 TvnkRpKUbpCHMagz9nwCel IGxhYmVsbGVkIHdpdGggdG ebIWLkoCeusnXlG7D8etUj ZM6nUBAUCVKoeF4oWNRoWZ KeEBFlVKObtZ2iYLY3h2Uc rkHoRLBORBJdtAhsZA61fG BjZWxpYWMgZGlzZWFzZSBh oaEghdJht89htbIyt1BiYV 6njCjjJHbVJQnsUtByJR3j GJLtdlAos7HpFM1lIREzxV AtQBMsyeyjhUHoIBt0tKJl QJUrFgQsfCcph1BsEBRjSV hpME95rgBfBJ8wLEcaQM5d AFwbIT0fBIJoIPInSZWsMu MgjCTiYmPhcGAmLhNfR48v FmKRaAMui1PuN1wgFJ5wrA YwJeudhCGyRQBlzUfte2Xv zTQcEJJhy3KhnXHeXUtrPD 6pNFE6Yw4drXBjIQYtzrV7 j8GuYQqnRWIwPgxqWTZvAU qfz3OiAAZzgFZSs3RdKE9R XHBhciANClxzYTMwXGVwaW BPi5MzOERGQoemjOvwIfIa nKKcCgQ8IHUdhHXmZUR8ZI 0urUwdXBHmLLt2DPbsKKJn C8EuM1HiNXhaKdRxQNdzRZ OnWVEhQZmaUFSpY6YWXERa DOS2EmEgZECtCLe2MOizQ6 CLLOKeWAGcYtS0WYR8LqQ9 BKs0ROLEKr8zCMctOaVcPS VyGgK5GKc2KuViICSgUqHv DYNbOYEkJVfvcJWhHP4faU ijVUFuXQCbTHB7BCZdtIIY z3KzGCNkPJjkEuDqKHBRXO EWPQ0YVpPYFWFjLpWmhEPr XI6HMQTmrvDkDLyeuZirwP 7psOCoV4qhRlJpLhkzpUiy TmVzdERvYzEgDQpcbHRycG FyXGxpbjBccmluMFxzYjMw GDOaeIKZp1XhMTOXFoMeOC NpbWVuIEMgaXMgcmVjZWl2 FIPhmV7yGw8kfTEclB6hmX ZkIWgdPMMmp0t6lLE6wDFr lXO0eXQopOqwIdXiMX6xuC NrRVJMPG09pLNlpuKfNEOc gR6sOOLtWJVmPRG1mpjdUR BDPRJ5iBZxi8K4WInuXMN7 uF8xiOmjUsQfH5H8ZBIxMN Leu84xtWO5ieZcUxXiNOSt rs0gaJ4fQUtplhYguYuonp Cqv6C5RUIed2Z0HXQribTc eHWsfIOeUJCoXhS5BKPjHw L0NJEhWVZpbRKgGCJiSY0w VGhlIHNwZWNpbWVuIGlzIG UypSIgltPsSDLcqh05X8hq LSBzmX0lg9seLaLbDHAkJS BwvYDhuIB5UOCrpK3lyT01 ipTsljWAIN7goWFkPN5ZIU NiMFxlcGljWHNiMCANClxw TSIyXTqkw4WrTMtwjJdhKC HmWlSpLDlDlGvhVELTU3dv cWPjMAafAIRBEBqHO6CMNL 1KWPNscPCPNTG2XY8bVMle FWGkR4FeD2XfaxD5s6oomP hpg2YmgAZqOP2flNHvSY9J XHBhcmQgDQp9 Disclaimer (test code = [id number]) s0swsKDcFPTst8vaVYOciY FuZzEwMzNcZnRuYmpcdWMx VNcjgoHsWWloy5FaL2GgDv AwMFxhbnNpXGRlZmxhbmcx VIOlGBE9duByBSDvHJlgLY FnRPiqSi1tdHDeaGdjKyCb AQYbp9mmcmYPRSeyNoQaA4 00MJXkCYurf0ccn3HbKVQy zZMfe8J1IJGRzjdzuPa7fP xgY32sr0C5VdkpH9jtRMBr GPCfY2BkEI6hAKOeKli0RN O8BWT4IGWuLKQcI0HxPX5p PJLyjVBuZUh3u2jgaFmcDG BkUAH1w6ghQLusloRoAK5y ag7skUd5c9iudhAqVBKiGS LqcGMUWZMiI8WftRtxKb5u tZo3mHucYqslEJY3Lgy3ON 3clh97lan5xArtKHYpgohn ArP1NAagHGAxzmleXOu8VM wlCVQnjKX5BQJavAIgU9Uc WHOxNJ1gzsi2AXI9QRyuBU PxSoK2KSVkuLFyTSJswXfs LMwwm473IHV9NfXuYH0rR3 Pxa8B3bW3xaWToDSPxeUTu PsPmJREzzy5khFRyYBqmo9 KxJWC2yqL7pNLjfDDnQGXy AA31Vjonq9NwAvhhi8JbL2 2xoVO9GXwbv3yyQW3kZpL5 jpNrFUfyn5jhoT4xYjG0HQ giXN3zRL3aZIYskP4dknzb XHBnYnJkcmhlYWRccGdicm DwQs4gwFtfZOX5IBcoR8qx dR9hCgM7JFsfK2vbaE0kWX i1LOlunUG7NWTnqG3tBG8t pasen1zsBBmgCOnaCPNaho D7xaJ6JUXftRNzV3FsuP9t JZMuTI0uvhthd0vhMDW2NH gqNTQvWLM4OwUdAPNou3Nn eks0OvUax1OpbQCpSTbvZ9 2xn198CNFhkgUeP9icaCAp zrnipXHucsvmWQueirZ5RQ RvirGsj6VdZDXnNHX9IQib QHssbUMhEYAmfYmif6vsD9 RscGFyXHBsYWluXGYxXGZz MjBcbGFuZzEwMzNcaGljaF htBFavWqHzNMKqCIqtO5vq BkQqW2NnAWCeAnIztYXgK0 ggVGhpcyByZXBvcnQgbWF5 DJlgA9q1LGEkfpOlfQy8wq CiHhUoAALoYEJ0ERpirUOv CHDui5NjvcxqfQMqUu0yfK SoNCHssG5wOWQxWQArFPkn IL9ktHq3PMWBlPUtnZNmIm CTCSQrSJ70xtGlNNRLacgi w5Z4IAueJDJsi5KztFPmG8 wbf2ZvHZMlz77bRD0yp3Y9 u2paTAL5ME9zs8ZqVKMwrK VsuHQdTJWsz7Jtzbhvt5Hk WLExtjHxq5LbERAjslSooN GeTXExxaOzjv9josZcRRGn NPInX7QapeozuIzrlcPtNC Shfx6pchNyQDM2QZOXNBUn XJUwg9ZuqS5ydQZTVHK5tO Gsir4ovxPKdQFbSFLxgj22 UMTfPD4sW4leEUHvVQLcpn BdvYClj9LtHJHaqRW0gKTt TI1PKxLAe46cDLIyRYQRfo DzHAKypGdiuVQ0nkV3hY0p IChGREEpLlx+IFRoZSBGRE FbCT0dinYrr5EzivUzuOpi CMZmiVTji3QzgQBsl9FksP kjk5ZvaIUncVEkIV4hCCPi clxwYXIgVVRNQiBMYWJvcm C7q3UzXJJxWZVrCOP8zHbf etj0WGRfhC4bHWWuW5bntz xbZGwcLAKhs3DjkF0xwCXR oLIra2NkeFYxyQDHnBNeUX 8dshOgTPhNGDvCSNM2puPu FMPkw2RrMGmzD0wzM82zuD zwaZf3vNN5CEO3hW8xEbd+ IFxwYXJccGFyIEFwcHJvcH KhKUOftNtwwaFqS3HytgFd nG5tgOTdkiPkVR5sOI8aU9 U4xGTnBMGfxoEon2rtVDlc dmUgYmVlbiByZXZpZXdlZC Rsm3ReXLfkAVX5EWejeqNe bmNsdWRpbmcgSCZFLCBTcG YkuROxYAL6CRpcxaHeslFi DG3mmX5lsSbnpN1roJSkoL A9xlfoQXPdMGWnnQoiQKWd ZQ8nxRzaeR5lTaRgBsCcYJ ftIZ9qPJNyB9dowAZeUORf DAPfJ7ojHbJizW8diInhED xjZjJcZnMyMFxwYXJccGFy XHBsYWluXGYxXGZzMjBcbG FuZzEwMzNcaGljaFxmMVxk WfJxSQLdRCkqV1diFkEbY3 VfDMJmBtUkpSAqL1liZDpm FZT3PTTfTY9lzTHuSY48kN Mah5tiJOtguMnoic2xH38j bNAlTQyltInmUOQcs58il2 NoTCDntcWwqp4wFYUnpsA3 lQ1tUSHtbDvgGEPcsIXkAI Qfa0QsBHixtBGvkoXjZAvg FHTjBXLyoWHppmW4kzXhno DzaxVkLUXmkUnvZVVrs4Be BGGqNSquy5Kjsi0iqBCxSM GfgsFOeVmnxVPfuD1dD2Ii ABRvMXWzrv8jLGKyzH8cRG uca2RyslbjUPIaIQKjDDXg qjQbzw7jKSOlqQJPDS7TOG fbuMYev9MixaRgJ6vCKKO8 NUQwNjYwMjgxKSBleGNlcH IrRVXngl49ZIMupK9prNmv KEOusB3ujN4twPnacM8mMx TiNtPrJIkyEE3xRFOkK7fr xDImIXSoUWKnT4tmZpLwnW 9jaFxmMVxjZjJcZnMyMFxw YXJ9fQ== Embedded Images (test code = [id number]) [id number] 19:23:05* Test Item Value Reference Range Interpretation Comme nts Case Report (test code = [id number]) Surgical Pathology ?Case: [id number] ? Authorizing Provider: ?Dominic Keita MD ? [...] HPylori ? Final Diagnosis (test code = [id number]) [id number] FuZzEwMzNcZnRuYmpcdWMx FUtweuOnSPjkiNwtXPA1BO TrJM0mfRyjpZs2uAbsQYEu miC4tHQfCJhpp4gtUNR5h9 tscrweKUBxLYtlIu8kfHSp iBoaWxDnXXUeAKc3nX18RU MxfV3imJWmAAc7KKVggVEv pvZoJaLqJQZiiYUuwWJ7LA VoLI5atyddMTixZNupUZZq wbL3BTEhcTYmM7RrDPUnOQ 4tnofgDQX0FGawZHPcZEP3 VbRbTCLtl3Ksiuk6JbHuxR FyZFxwbGFpblxmczIwXHBh ziRRYxQTUX1DYEKJABCBY7 uYWRKWPW6DLSQEEtgvuKGl LUQsOSDjDSEXTW7OGNCnY1 vWBeJmTG7LEQNgRJFsgTJj ZNIksqSXRhQIWZ8CLY1GRR wgQklPUFNZOlxwYXIgICAg YPSnCJnQA4GLZGAyUQJED5 TRQBoNDSqmFd7gHJTNRP8S X3dEH6EUMDKLOC0ZTQegUR PmPRWeMENoDE3OROgfLRFR LO5NAGCACJJNFKeSHIJKQT QSEQeZCWBBV4HOJBpEWMBv qtixXMGzXh9iI1KAEVRVEA wgQklPUFNZOlxwYXIgICAg UKNsNCORY7EENtEWKB6KW4 1AUBMOIPDDAS5XHSDCUOqB GY4JBQVKKWYRYLQJW5VydK FyICAgICAgLSBOTyBFVklE FJ8ZAVSCEgCNBCtMHLDqDV lTRUFTRVxwYXIgICAgICAt YI8TJHtyZYYHNH9DSFIIFk dBTklTTVMgSURFTlRJRklF WJTFAPTMUT5FWn2SQLPWQy xwYXJccGFyfXtccnRmMVxz m3XiE1JmXqIuUWafhxHyLD FhQizajeblVZQjNER2noYx UBXlIXbqHROpBYbePl4zsG RayFvqRkQuQNHyn5xzimAU UXrdJpFqO818HHExZUlyp3 btp9KfSENyxQRlz5U3CXDT vlufxBo9x0qvZmHuIqC9tP HjZBddN2adntMwbLRjS6Iy kUCoxFw8iHgsN62ow9X8St uuF8krMMMzXPWjI4BsDP4j PYVkRdo0FTW0PLP4IGKsJG OzF6GaBC1kASCseCHjQPk7 l1ymiQrtQTOhKVL5x8yhZY knicL3CM8qrp1atKy6p8fv czEgRGVmYXVsdCBQYXJhZ3 RrvFagSl8kyOl2uQowRqst KFI6Dud1CZ8hut22mhh5qO fvILHygobrOnX4LWswORFl vtciTGa3FVthZLIatHA9LJ SgdWFzU5CrIABvBZ1nvly1 BCY5LItnHEQlYgV1NMDwgV JzDCLncHzsNMmdl914OVQ8 PrQbDW3rM9Lpl1H5uS2ezJ ZbZBObcIBxEiJdHNYuon9x rAMpJAhoe2NwWKQ8dzS6sM XhnNRkQQHwWS74Gjrvw0Wr ImqkNYG1LJNcylZjn0Zfn9 knDrAqiuFrB6zzJ4FoGLVx MFUaQQRgOpOoyzJba2Hrf8 WioEFfqJa0w6nvQEAoPQFs qGgsw7uuJBX2EKHmN6P5rO Syd0fsHAhnUMXelYB8ewU7 UCAtlISwL6LquV6uCPSgJV 0gfhw0t6wiEIU4DWdpTQUi NfP4xcT7PEWkbZTyLTTznF dzYQxej032HJQ8BqGoSSYf c0GoV0YlmNauE19mmDlnZ4 1oNCVvpFsvhJ6xmJbzeU6v ZjBcZnMyNFxxbFxwbGFpbl xmMVxmczIwXGxhbmcxMDMz WBsrD8zxLnDpGKQoiSfiDV oxs4OlHMFwABRtOtoixuYx XHBhciBJIGhhdmUgcGVyc2 9uYWxseSByZXZpZXdlZCBh vUabc9KyF4gsAS2yH8ArwU HrznPbuuLcDBehDUFom9r0 wMLahOjyu4VasAQsRY43yh QmVRXkZCS0RYLld3ptYF44 ebdyHiOfoM04laAmhwHsZU Fks4fwY9nfaBXek0Mun4Wy xsYqVMdag1WlRN3pqSYcrf afzBH0EUJxtJFyzrErlpF8 rFtcNVFicB4eiZ2qpSlarV 3iApJpKsRtAIajBF4tBKGu Y2wsgSArSKBlLNSuT6vrRz HqtR5maCukUhwgodN1IYLr cn19 Clinical Information (test code = [id number]) Shivani Schuler is a 47 year old female with IDA1. Gastric polyp x 6 r/o adenoma2.Duodenal Bx, r/o Celiac disease 3. Gastric Bx r/o HPylori Gross Description (test code = [id number]) b8xjpCNlAAPjsUSUBUX4KV SwUF7xyLgikOp0qOagCUSx vhH5bLOkKHefo8luXQM3n5 hjwbUFWzbrVGKvYM7cIQcb IZBjMG5iAlHjTIRlIeHrIQ BhcGVydzEyMjQwXHBhcGVy zDV3ADUyNE3byswxALvbMW mwOCRbshM5QZSbtSBuV4Ba YYHbIP4uhgmxISX8DUAEUu txQs5pjRJzhPamPrNoAxVh YXJzZXQwXGZuaWwgQXJpYW u4yQ5ZNipiZYK6MWNPTdxe XlstcIbvs6NxeXBnIQLrKQ xcaWQgNTEwMDAgXFxkYiBP PgRtLkL3Qbc6CAB7TaS7WJ c1SHXBWNVoAggnBYW7IiM5 QQi0EKOjSP7gABqagBJrBV gvSoldMUmiU733LMbpJRCt R3CoX4GbQBaqKwIgTXtfZQ AuSDErQIzqLCYeL8MMXKOk TSX9PgQmGSEoPOj3NUjaF9 GNIHGkNXViCpS5HPLsPqY5 OBa1AULTId6qFOvfJoYoTJ h7DRL2XAr9CuUgDHOmMiGx JKIyBMRqLHkpzWUiEQ5yaW afXYDfFN3WJHHbOVuoGYNt IzZpA1BCG0sZPE5tZQhjwH JjaFxmczIyXHBhciANClxw BWJbKA9CFYYoSRguMXn1pl MhKMYnKsLzZVOmT08yz1LD q4YfUU9MMEk6hrKqndviiQ 4rCBTxetBwSYwQpTFqjY6l hrPHWMyzDHWjX7OkyrMrIU xlPRTuzg6ssHacQZjfBrQv bGVkIHdpdGggdGhlIHBhdG iiilNxQ0Z5kuXvPP5mNVMM RERheD3fZTEhAUCha1RqwI HlrJzbF5YzuKAtAcDsq2p9 uJB7HNZwuoDvHICsnGSyHN Nble3qDXajEjOzL3D6NOGh TNYcz29pkOV1clExPmVrzJ t0hVAaXPY2AV3zyOzbdhCp z3j7dV2uJDVuv9I2AJExm1 V4CTPsuoOvrWMxeUAhUYEi YB8ctkBjAA27RONiHUofZM sfVKV3XUF4PWSsxLAxi7xz wtkzZu2iYRpnPV5aLYjlGJ 67DLRjRFdqLZZnW1LoT5F7 HKyyVPKlVVOzmFSknW4tra CwlwWrgFi2KANtVIC1zEGp rCgwCRKzSvdubYF9DOFiRk MskbDmn4TeeNn2xKZcVJqt DQFwjQ8toA4uHKNuZXQeyl ZIBovpFYDgCMiyn7XsHVtm cGljWHNhMzAgDQpcZXBpY0 3ft4UTj6Wun6ddmJhbq1Tn tWOgFU7bmDMzLQ8Lm5qiRT JskDDgCIA0OZdxo8orJEqw TKZ0WNKhCuGaJXNfYW3BQh NtWAxdICa7GEemQXn0KJf1 PX1UNhUkXUPmFni0AuR3Wi XuWZt5VPpgIB5YESQ9KLIu EFRvZLuhRZG0EQDyQVo5TO IgXFxzcyAzIFxcZmwgXFxu H68ggNUbIMimScWxPOchjE elNBQeLWG6XU9WAPQhRyOy O2YQU8dCUP2bJoorosZgRC RqmdYXFwbwGYGyBV5ULRYj ZQogPIg1sfGjTRSdJmJlSP DcG25qt9AFt8HmFR7XSIq2 xqOyjwarpV5kASNsswSov0 IzMFxlcGljWHNiMzAgDQpT nALnaG4rrvKNMThmISBnR0 YxcsCcTWyfEONxqq1rwHnp IGxhYmVsbGVkIHdpdGggdG abEIDkdLusuyBfY2K3sqIi RS7qIRFTENOwpG6dNPDlRQ VaAKJoNZLseU8qGDO7x8Tb nkIjDLRJFNDaiJkmYN16uA BjZWxpYWMgZGlzZWFzZSBh acGxkeIta34bzjSre5LfCY 4ovPyjJYhKJYrsCaSqZZ4v OKNgfaLcg1OwRM9pGCYnyC XvEPDchhdcrVHrRZs1ePAu VOFgMfOqsCiny0MtHUPpYE ktTC57goGyNO9zRGikME3k FNsyGN1vOPFbQOKrHRSdCf AdnMWiKvMwrYLeKvAiQ16m IjQLiUMla3LeM0byMU3zpZ OkScptiDQcJMXifFuok0Wk zFRbJCSgh3ArtRMmDHerET 1tYRO5Vt6gqUXnIJQeupT5 f7RzTVlpUTVnVsrsRHFmQA ybh6PpSNUaiDQNb8RePX4I XHBhciANClxzYTMwXGVwaW AQe4ZvGUYEUjdzfUseTeQl cBZkRoV0RPGqsCYsYMZ5FH 9bhNayIGNnTWx3EJdwRAJe T9GtA3AdEDxwQeEqTPjkZY OhAKYmTBifSIYmZ3TOJYPk XUJ2BmLwLNEtKRp9ZEqzF1 RZYGZbRCTkKdF6PER3TpN3 CXb2AUGTMw7lTRexJnTnMB NiKoN8VTv8RsOiHAZkYjAt IAGdWLDeGIlfpVGoEQ5prK hcWASuKVVwJVY8IHEenFPL d2AuSFToHOfvDsCcIHABVY CMLE0YRrAWYVPaVnWqkVRo BL8RIJZqowQbLIwkbPexrA 6akDXfC8vuQfKyUmlmlItj TmVzdERvYzEgDQpcbHRycG FyXGxpbjBccmluMFxzYjMw UBEjxGSAw8IcDAMREjPrZC NpbWVuIEMgaXMgcmVjZWl2 OWRmbO9fNr1ykVXxqY1ncN IvJWiqLHGmj1n5eNS9gYLo vVJ7fQUddDqqKtZeYM1diS DrHEJUXA46hETsewMcFHAg xY7bHXYmSJBlFRJ6xyuwUR EKTST6lHBbc6C5ALpuFSZ7 yG8kaAzjEqUwA4C5JYQdTJ Xsa66qhGF7toElRxObMTWc yp3ikI1jGUwzbbRpkHbphq Ffm1M9SQPfa4O6BUDebbMu iGFojYGiHITcLuH8WRCxMj M5OHXrJRBdtWNtEJJxNU0o VGhlIHNwZWNpbWVuIGlzIG LzvJDabdKqIQGjdd42D7me YXLgjE1uf6emDcFoFLNgVV VvuVUywOP6VVWdjX2ypR34 xsGaymFUUX2cxZRiKT5XAI NiMFxlcGljWHNiMCANClxw NXHtUJyse8OuHEgqrEimYB RxDiKrYCzNcRapYEKJK3vz jCYmNLfrYQDWGBbXJ4MEFH 9QLQJfvUTPBVL9UV7mEIfz DYQyO0SoM6AgorP6p3zwdZ lxb4NhcIPxPY8jqNFlMM1Z XHBhcmQgDQp9 Disclaimer (test code = [id number]) s8ksyACqLYZur8dpBIMcaL FuZzEwMzNcZnRuYmpcdWMx QOweupRvWRaol2ArV7SiWv AwMFxhbnNpXGRlZmxhbmcx SENdVNL8wiYsOBDjQIboGN ZbMHgcLo0haBFdoDzfZeZn LLWrc1cmjqCBGDvoVaXfX0 58NWYzRSwlw8juo6OxALTt lDMim6E7IPYIcjkchJu9jU miX46ax3T1LdoqP4dmCWUd LVRrF0ZjGD4aJGDtSdp0LV G2MSL1NDQlZHYlV3CxRJ4g PWVxlHJyHDp8g6tvcXaqCB DpYYQ6w3oiLWuwgdLlPI1e ch9pkAt3y7pocuBoGOOzLE KunCZNTSNrX0VgwTpzJp6m xWh9dZjdQkouCUS0Gau8BA 2wrt46rcc5zTgfUFGfprdg CwR3BDknVQGraajyLCs4OG uoANSaoPM0BYAluIQcU7Dw OWRbCA9lxvm8XRC4CAcnAW EtVuO0CHUiaDLsHOPbwUik UUrdo065PBA6OeDwUT0jN3 Npq6R3pH7obYGnVDNddQTv IbLpVQUqjf2unWVxENubx3 KpIXP8zfN9sSHkwLTxCBXb NC28Cpbnh1WsSmduo2ImN4 0elYS9FXaeo8bvVK3lNzN5 ggGzPVtpz6szyP6aRtL2CP epUY2cIP3tCGOmgU5rbzjn XHBnYnJkcmhlYWRccGdicm GtQq9piPyeWVI2LDtnY2sx oD1wXcQ0GIqeI3nzrA8vIO g6FIghlAU3UKVgaO5lXG5g rbtyb9wrCRmxLCgtYEYwju O2aqS0OKYkrCXuA4BdmJ5i QCMyXC5dcpcgo9omVBK8AU ltNEBsAHO0ReQdVVJwj3Cw evf7AdJvg5JvxWFqRGmbZ4 7ti218CJChriEfS7vwwMSk uravwHNybxbaDBwkwcC6XG AcjzDjd1ZoPKZoLPI6PXpw IUkqvSNiCRLvpDvzt9hnR5 RscGFyXHBsYWluXGYxXGZz MjBcbGFuZzEwMzNcaGljaF ucAYibOoDvTMWfGUsgC9ch VpJqZ5VjYFYiNbMylYFzL2 ggVGhpcyByZXBvcnQgbWF5 LXfsW8x1TKDqhgYafEv3pn VaScWtQJAoONH9TPewbALs IEMpa0HitspeyXCzGd9waN ByFXLjiM5pPKBbSVIgZLwf NR4zrUu5IRQLnDCtiRZxEj NEFZCeSH12yyQuAUBVdvzs m9J1KZdoBOKvp9KzbQJkB0 qmq2HvHUDkj32nFF3ed9K9 y0xrQDX9WW4mh6EdNOFnqX CnqOZtNAGzb4Onmfmlf3Jt WHTwpoUuo2LzHDPyclWkbW UwEBWywhHeno4bzdKpJKPh OLKsY8CveoyqaRdrduMlFD Ltku1kbzYkYBG6IDOTZJGa DSXpn4EufK8vhAMJLUJ6pX Qwrq8lryOCrALrLUMrch98 DIQgZN9uP5dkSIEySYRgec UyrPVsu1FqQUTiwPF2zKNq NK7BIvUBk20eSMYfGBZOgk TlUIGwaEfgwFM9aoA3dT2t IChGREEpLlx+IFRoZSBGRE DxOH3ztdGrs8RjysEsbZqf FTFseIZzv4ChpZVjg7NynL zil3AwbLLdkEDeZL0gMPVb clxwYXIgVVRNQiBMYWJvcm M9m2TcIYGkAJSrKGQ8lMfg yfe0IFMorC1rZQPzE5qzqk guCKjlUUKyu3UulV3egFFV vKTcp1VcxYAeoSFDnGOlUX 1gqpMiBMsYBFnENFY2ngJa XNBiy9FjIAcmD5vtE30jlX neqTt6aUL7PMM7tP3lPln+ IFxwYXJccGFyIEFwcHJvcH RdPUZddXokdcRpY3MysxTp eG4dbQDdypCsHC0rOE4mH5 W7tVGvDQPilyWfj0wcGYzs dmUgYmVlbiByZXZpZXdlZC Nhu1XzBNixCMJ1EIfhmlEg bmNsdWRpbmcgSCZFLCBTcG GkxUUqPOD4ASzgqhQchuMm NR0acD4tsTiqwX1bsSHwdB D8bzjbVLQqCVUvrDobVJHy DO4tgSiezY9wLsXfTtSbIK gzUC0zOSOgE2hlzJSsPMTc CSEuE1eeNzYncQ9tmMxoVL xjZjJcZnMyMFxwYXJccGFy XHBsYWluXGYxXGZzMjBcbG FuZzEwMzNcaGljaFxmMVxk ThLkMQXqAYkaY3lnMvJvP3 TzSUKeIwSxtECnZ6zwFUoe NTJ4ZCYtLF6gxIBpWP14oJ Gmj3ivLIqgeZwbgf0fJ42u xGGyMXwaeMthPEVxh15el5 CkEPTgfnDpse5xLYQllcD9 gR5qHQZsgIvqVTUciWOrME Xmb0MaKJpiuUIsspBnHOfn BPNuAHUrwEGqbbM7aoAmfn EubkQuNUUthVszAPNih8Df AQDhKSajd7Dswf2cjZWpUK GskeVOiVoopSLzhZ7uK3Ui WEHjJCNrtx8tKYGkuE9xPE atl4BanakdQRUpSMCjDCRk rvQsqc1pTWMmhFOMTV0PAV wkuFRnp1YqwtEzD7kBTCD2 NUQwNjYwMjgxKSBleGNlcH YnNODtsb02WBOwlW9obJde GTXooM8zoS3ucFmilP4dQv CtJmRjSLbgNG9mTJOaL9fu iUTzUBTtXGYyQ6seVuXdlO 9jaFxmMVxjZjJcZnMyMFxw YXJ9fQ== Embedded Images (test code = [id number]) [facility] [id number] 19:23:05* Test Item Value Reference Range Interpretation Comme nts Case Report (test code = [id number]) Surgical Pathology ?Case: [id number] ? Authorizing Provider: ?Dominic Keita MD ? [...] HPylori ? Final Diagnosis (test code = [id number]) n8pdzCUoAFWne6imTNYrjU FuZzEwMzNcZnRuYmpcdWMx UHrueyPgCOmgtSqbRNM7WO BzOO1jlDebwFu3jClcVHUq mlL4lGUtJIvxe6tlVYX6b1 aracwmJXGmZOrcEe1fwFLq zWneNbXeINLzAFi9gE83GD KvoO9vqJRaQQc2IVDjqZJr psUeBkAnJDSccMGrzFW6JC MyEG5decgsXWwvTUgoIHMy diX3ADVzxHYsG3DzBUVwEJ 4rqpzeDMB1GTvzKINzDOG6 VjDjQJUmd7Sqjle1SoIsfV FyZFxwbGFpblxmczIwXHBh xzCKDbDYFS9ELIXYNXVBH1 pJIELMWB0GNNGFMxrtzUHy DZWmJMYkXYENQM5OUUPyK0 gBRsDfIL6UGVZiVYSnoLDz CKNldbRBMcSJSH1AGT7AMT wgQklPUFNZOlxwYXIgICAg YSBzUOuDS1JCEKDySJSXL2 XOUUrDZXyoWt3aMCWKZI7E O8eUA7FCWJTODE0ATArgIA VnONYcQFAmWS2AUYbjXWUF EZ6MLRZAKUWILGySJVZPYC SOTVgHHCDNE5HLQNgPKPWe zmqzNYBcHd5pV0SWTYSDZR wgQklPUFNZOlxwYXIgICAg VFBkLQPHZ7HHXhZTBJ8ZX8 7KQOIRSTPFXC1KIPUCPYhN WP4NZTTUSKLRKAUFJ2EncC FyICAgICAgLSBOTyBFVklE OE2HEMSPZkQANFfQYMGfMW lTRUFTRVxwYXIgICAgICAt LO3HOXnwZECBWR4KHVAEMa dBTklTTVMgSURFTlRJRklF ANJEOSZIUE1JMd5EKYRNGo xwYXJccGFyfXtccnRmMVxz c6SuK9SnKkNnIBpwkpZgJY CmCmryvydfPPLsLIC4jeUu DNItMUtxGIZiPSvyFg2omO OdiUloHlZeHIMad3yoysBE GCtnGuXoS871AKSzHCkcs3 czl4OtTCQzdFSot0M9JGDT vmkwoKj4m0rwHyUyJiM7lH OsUAvtU4oflkSwjTStO9Ax oHMyvIr5mRvjN27ao8U9Ay ulE7rlQQIsCKIyS7SwNU0e EAPuQvp0JAZ5SOI2GBFxXR AuD0VtNM4yLTNrrPNkZEh5 o6cisVxyWLOfITG2a8loLL utdpT5PQ8rab1fvSx8c5ap czEgRGVmYXVsdCBQYXJhZ3 GdfKbxEw2cpBc7qAigBazc QYY5Pqn8FR6rno01qbr9jL rtLJTnpputNgZ7HDntFBTe yonpUEc5IZlwBGEyzNR8SH RkbZCpS0DlCBLyZK3enxn5 QQM7ICuwGSSzHhO2TKEfsX FgIFDuxUhkEYnnk008XGZ9 VmKtRF6fV2Izo0I7uN1siJ BlKEIgwROeRgVsCGDyty1n sRIxYHyrm8NiOUT7opQ0jN LswNOlHPCkUV55Hgpoa6Kr YidbLPD7GIZnsjQmw7Nkq7 egGgMqwmPhV7ofN2CpQWJu YYDkHFNfBuAzuzKsc4Jqk0 OqqIBbhMk5n9dsLMXeHHKh zVhem1aqWOP8NSJkH1C6nQ Nru2gcSQzwKNNlcHE4llQ7 BJEunENjO0RtzV6rKBQoXM 6ntdc1m1hbGEK6KFmcBUYf XtO4qbD2SLQffRAeRAJbuQ ssNBurt999GRL6OjWcUIXm w6SrJ6UuvIxdB23fwFujW7 3jDUBpgAqvwL4jxWyzeZ3f ZjBcZnMyNFxxbFxwbGFpbl xmMVxmczIwXGxhbmcxMDMz ZQksA0clLrEhBXEqhWyyNI vsk0MgUSQsNPOfRthzvbDl XHBhciBJIGhhdmUgcGVyc2 9uYWxseSByZXZpZXdlZCBh nVwnx1GdR6syYK3tN7RphD UmntEeniJvYSpeCJSju6f7 rUDxwVrej2CuiHRtVM83ah SrESYmTSR0UBLdv0xdQD77 lkvtVpXqhA83meWlijTsRB Cdx6pbL4pnlSVbo0Von2Vl oqBtYEnot7DoKR0fjPZyky hykGC2GQDtgPNiwuEymnN8 qMenZJMedK9eeE3aoHilkC 2fVyFzIySdUVrnYK9oDOXo Z3atlQUaSSYqCGSdR5svHk BhuH2klKjnAxyhxqK3VEMb cn19 Clinical Information (test code = [id number]) Shivani Schuler is a 47 year old female with IDA1. Gastric polyp x 6 r/o adenoma2.Duodenal Bx, r/o Celiac disease 3. Gastric Bx r/o HPylori Gross Description (test code = [id number]) y9vnsUVxECTpgAQCBGR0BH IhNG6nbYhwaKj3oOzlUTMs ugG4qBGnSMwcz8bpOJE1j6 zdepGFEwscXGOwOO9lDThe OZGmZI1rAzYzJZJhZnFrAW BhcGVydzEyMjQwXHBhcGVy mBK5IGIhCS7zolxjDJeeKO skAOIpflI1AWRzlXSvG9Bl XRTpZB4mmtoaSZT3VQLLDw tkSb7gbKKqjFstEvXuUbQr YXJzZXQwXGZuaWwgQXJpYW t6jK4AGnrbHMI7OOHYFozl JmzjiPrfg8RqyGXaBPNpIX xcaWQgNTEwMDAgXFxkYiBP WcGxQjD6Nrc2TSU0TaA1SZ z9ZFMQYLYhKazsZCN6BhY7 HXy7LLQgKJ8uGYzbsQKhKT teLowtZNjgB372ZJswRNUp U9FzE4LvYEerWkJhZKyiZR SpYCBzHRbcUIYkU9YONKSa JDI4TcFdBUKzRAn4YCwlX8 QRXUIlHLEyBdJ4IMQwDnF3 CLr2UUMMCz7qTKtfYzRjIA o6JII8JBa9UrGvONCyPuCg PYJrACRtVEgaiZDbME2txD tqRLQwZU3PXIEzDGhtUOAt AkNoF6POQ8oXMP5iHOpaoJ JjaFxmczIyXHBhciANClxw UEBaQI4HRHMxSOhmGUv7bp VaKNVrIcAvVTIsJ76fq1JN d3JjML7ZUJt1vmFxkvfhiK 5pZLQewsJePNcHhDXjsI3o lbVNMKusKVSlJ6ZkolFpSP yxZMSece3xsLrvZMgmRgNz bGVkIHdpdGggdGhlIHBhdG dopkNsJ9M3sqIrXC4lCLAY JFKvrP5uEQPzYYMld0WqfQ OpzRauL5MvhFNwKqOht5q2 xRM3XLByobQaOVBujDYtVE Oucf7nOZdoRiMaH8K4ZKQz TKAtv43yyMG2xsExOnCzwU m1hVXzHMB3CR3vdYvqnlHi r1n3sI5uHCAkl6W2COWvf1 R0FQXsziYcmESasRUzAICl KL0xakYjKF07BVBzTCzqMN zeLCN6BOB0WZEemXGfv3jp gwjvHv3fLItiSC8tVNptJF 76MIQlOHrgWEFhT2ZvY5I4 DRxtBEWaTFPoaUIbwG0zhh QofaPdzNh1SGQoBOC4zPRl aTrzRVZxUvkigYT3AALxSg PqbaEug0AfeXa0aTTiWNol OFLfbO4zpX6oBVHiJVSxhx DFQrijEBNrSOdns4TbKIdh cGljWHNhMzAgDQpcZXBpY0 6nx0ZBh9Lhh5sufCjjx9Ai jZQhAZ5clMJxCP1Fn1gsYX ZehTDgDAA4XXdnl0aaFPla JAO8DQHdGmUuDGHcGJ1EUp IoTQocZOd0SQpoUKg6SBy9 JB6CHgVgRSSaLbm3ZdY9Tt FmAVm6AFhqGC0IKKX0CVDa RMGwMAmzJJI3NUEnYOu2CE IgXFxzcyAzIFxcZmwgXFxu I87qzOCrXNchWiWwANdvfC jvWTUmJGP3YL3IINUeLnAf X7YGK7dNTF4dIubkyhAzGS RzrmVDHcbdEUBxNM4FZRNh PNcpLSv0niYbTWSxGiIrFL DgS66wu1XRy5MpTE7CFBi0 peXqgythvU3xZFWpwvWjd6 IzMFxlcGljWHNiMzAgDQpT lESxpT0fmvOJOUdgILMfW1 AsmsNdFTrrDJYphj7mcLay IGxhYmVsbGVkIHdpdGggdG vsKCYlcGpcctLuF1T6amHl IH5vTFJBHAKziG5dIBDgCM UwIMGcXUOrgZ8oHZD1h2Zw ybIqRQNYCTFqkQecMA17eH BjZWxpYWMgZGlzZWFzZSBh vkWvtoRty39oanMwl3ZkRC 5bhFcqZGzVFXypOuIaNP3g OVNkmtGgo7BeCU3wVBEegM HqKYJylwgeqINfHAa7dQXa DJSpErVfhKnxf6LrKMPmRL trDK76gmPlNP8fSYhkTA7l RDdcXL5iOVZxEEZsRIKyVo KqlTHoPdCezDJsXgTlQ93i KaYRzGGth2PvT3qqQA0vmY AfUsmtoCEdQCCurMbtn8Vi fNZtZNEjf4XptVLwRPqrMI 7sRNU6Gh4tdQKkOHKknzV5 x3VgGGosZNXcPolaEUWwRX vfd5SbLOIdbOZOd2VlJO5B XHBhciANClxzYTMwXGVwaW YFr6JiVURLDoomuDvqHdPd gUKjJyG0IWJktTStORZ3YI 8quTxuXYYwDQi5OGwsYIBx D3NkJ5XgWZudLlNfMVybKP LwXGRsHJwbIZHkN3AQYBXw ULI3VyVvGBXjBNw9GVjeM9 GIHZVjYPLcBjC2WME4VdB8 BSd9RLVXRa1oFKbqNuXoCI HxXiD9GCb6UjZbWWMdQfZc MVCyEIIsFRtnqHOlHD6kuD kgRCLmXKKgSPK8CKQboKGE u4RiGKRcWNqbGyImIZRRPY XBRP4SUnDMMVRtRjMjxKSm NO4QZGLffePtSQculUpgzL 6lsTNcP9lcKiEbQciuqDxi TmVzdERvYzEgDQpcbHRycG FyXGxpbjBccmluMFxzYjMw RXPjzFMDi2OwSTBGPuOjGG NpbWVuIEMgaXMgcmVjZWl2 NTGjrB9oBe5wsDPuiW6rjN AvPMuqRGDsn9n9bGG3tTOa uUX0gDZjoWlcUsQaZD1dqA BrMMMFKD42xZMvrbPuJHWf jN4aXXTpYWWaXXY9cjmzSE BNAOH1qBKxl9J6NPhkHDG5 aV9bgZmwDaMmA7Y8AQZpPF Vhr31ihKO2coHlJqYjQOQu rx6qlJ4aBFwaxeFgjMybed Zow7E2AAHlw1T1WNBxxcXl mGYhnSLyBUHbSzK9AQQkRc L5AQKwGZKecDRqQWCxZM3x VGhlIHNwZWNpbWVuIGlzIG ZiyKSjhqXzAOYjap88C0rz WHXwbX9gw4sfYcUhFUQcIL MqbGDqcTE2GQUzeE7suH26 snBgvgFZFV7kqWFhRJ8KFK NiMFxlcGljWHNiMCANClxw VMFcFZlgg2QvXJxnlShvYE WwIlIbDAqBwAosGQNKU1pv uAFtSJpwREBXGZxVO4TMDE 3WLJPnaGQSNFS5AS9aLVjk EXKcD6GnB9UolcL4b2sihS hpq0WctBYcNA6nkKAvLT4L XHBhcmQgDQp9 Disclaimer (test code = [id number]) g8evqPFnHMGla2zwCJUopS FuZzEwMzNcZnRuYmpcdWMx XMwmwrRmPKoze6BuA6OaXq AwMFxhbnNpXGRlZmxhbmcx VSMuKIY8gdFkWKMbKGdbIZ LaTMznQi1mnDZirFmlFbJz JDYcw1hquhUGXHjsJvPmK4 16CHTdHGrns0frx6HfFIUx nKSjc8B6NERMltjnyDp2hW feN48da6L2LhyqF8ajWWBc VZMtI8CjKD3zCJTgVsl3RE C4PHO6SXZnGOPnA2IkOP9e EMIzcPWqRKy1m1yqjHddAH YvDRC5m6peYDbrszLkYH1n ah2ogWz5x0tmnmIqDNZnWR GcoFCLVRXoM6NsrUmiWu7z jUs3zFnlHnogAVW0Ztm0GZ 7zpr52wcy9cVtyGMCvsyqb XjZ0QOncJHHllsixKCl5GH wnGURgkEE3WLVhaPQjV7Ol XBWkGT0ychr9VYA7QWfjRE VtVwL5KMZosQFjIRJhvKux AAiea090ALU3LkGzWA1pV5 Vru1U8vB3dqNDlYPFbtFKb CiSrNCNrww5zkZOlZMgru2 QlAPX9hiL4lQLgyTKtGEFh CZ31Dhxql4AtReoky8TmR0 9mgXZ4OHblx9yjBQ4nAcF7 ryWmCPugf6gswX5yHpJ9HG ghNI7qGB9mUCKrlH8ygtac XHBnYnJkcmhlYWRccGdicm CpQn3jgXkeNMA4CTndK7qa eW7vRzQ6TCrhG1khsW7wCD h9RMihrXY4ZQUaxW6gBF2t vhivw4lmSKlwTCmoGAHpcz I7mkN3RARrrNTiK7MlbB9m DYRtQW2zyeagh9lcYYX4NG sgOCVvTKQ7JwQmNIRvm5Qp rfl6YxJyf9KlvISzJBfrT1 8xv553ECZkpgEvI7jmiYGe hzqqgPNvqlreVWelctM2CX XanaGqw0QyLAVwDSE3MVdh TVjdyNZdGYGjlBxkk5wrC4 RscGFyXHBsYWluXGYxXGZz MjBcbGFuZzEwMzNcaGljaF scVEsoTkDhLTRbREkpM4sq PkKhL6CuVIHmEoLqaIBhK9 ggVGhpcyByZXBvcnQgbWF5 AYfvC5c2FFMejmHdyGl6jb WlZxPbQLPvMDI8XVdepDFx FLYio8CtvvongIXyQn8dvV GbWHWqtA7nAFPeMRRjBTxt OE8yiAx1LITImYGstCYaHy OFKRJbIY66vmYbJLLLzvmd x5Q2FIxdMWYlp7WeeYRbF4 swo3QhQYEqp57cKJ7jn6X9 s2llPMC6WN1db3CsKVSnpO JxnHMkIDGpi5Jeajgjm3Hl WGQjstAkx5IyWEVfrjLvwZ JeEGKjskOpwe2rgwRhIMCh SFVhI8FpojhjpMsmnvZxPC Apqb0ixlWnMIZ5HNRWHQCa FAXpn2RroT4xgCLYUTL8cG Gxxp0orbJNiOVtXMBthd32 OQVqEY0pL1zmRNQrDUBazt GuiESuu3FeTZJsyVH0dPGv QP0SBpFWr72uLWZyUKZThw PsVZUhgJyjjIH9xdT5pA8x IChGREEpLlx+IFRoZSBGRE OkGG7vgdJuy6UtvmVdeXey SYWkbZFol5GozQTgw9IbzB mbl5YypRIxiHArIB8qGPHz clxwYXIgVVRNQiBMYWJvcm X6m2NxUOEeMINoBQS5gLtq xek6PSSbpD8mSKFyV9imkt daUJfrLZUev1RotM4syEIT xYNef1InjZSojYMZzBVxVG 6miiYrJQoGYNdCQRM2wyZc SAEis6EcRSyrC4vnM28hxH lwkOm6sSJ7FDU3cE6iVkd+ IFxwYXJccGFyIEFwcHJvcH LgGLClfBwtjjTdI5OpwgGx cZ0iqOWvmxKoGK2dCJ3eM9 B9hDKcEJCocmAlb3bhGQvv dmUgYmVlbiByZXZpZXdlZC Wys5QtXHgzDSR8PRrkjhRc bmNsdWRpbmcgSCZFLCBTcG IxtKSmGQE7QGhkpkLkdgPo PW6jqY2sjLrgnL9bjVPiaU H6savjBNIpJQZuiFuyCHHc XD0fsHbhnM6nLzUsOeMeRL buUB0sVPQfI4rlrJNqYSJc YCMdR5pfUqUggC1smFetKA xjZjJcZnMyMFxwYXJccGFy XHBsYWluXGYxXGZzMjBcbG FuZzEwMzNcaGljaFxmMVxk FpOkSBQgMIkbW3wiFfGrN3 VpDXJlRbFcfXLgH5obEVfm WKS3HUQpVJ1osXUzJK72zD Bcp7diULrisCokum1iQ85q tRJnPSelvJbxRGAfv67ac4 BoUDCbagCmzc3cEQUeiyU1 jH3fZKPjfQakYYTvrIVyGE Mgm6OaAMxxwHKqhiQlYUuf FOZeDOAuyLExoeQ3iaUcsm GvhvEkPUEaqPzqQUPjv8Yh QNShLGavf9Ejbp6ogFSmCH FkwqJZhQdntVPohQ5hC4Ca QKWgGEXmoq7dZLHqnA7cZB lkn0KcmlwkSYAzUSCpFOJh fmDeib9lFEOiuSJLLQ7YMI zaiFQay7IrbvMoZ6oIUMZ0 NUQwNjYwMjgxKSBleGNlcH YbUEPbav26OQSovA7byDhb FOVjmQ2rpL9ysUzzsC2bFe CpFeBqKLqfXB5dIKBeZ1jw wZExBAMjUTImR6nsJnNvvR 9jaFxmMVxjZjJcZnMyMFxw YXJ9fQ== Embedded Images (test code = [id number]) [facility] [id number] 19:23:05* Test Item Value Reference Range Interpretation Comme nts Case Report (test code = [id number]) Surgical Pathology ?Case: [id number] ? Authorizing Provider: ?Dominic Keita MD ? [...] HPylori ? Final Diagnosis (test code = [id number]) g4jveHRqYPVod2avWOQtdX FuZzEwMzNcZnRuYmpcdWMx ISuowoKyVJjmvNrkMUU4EH WgZB4tgPzmaOy8kYdsGCOr svC9gIUkYUyqz5qnZZH9g4 rhhmknEGEwCThwCg6syQZn jIbjQoOvOCIsAPc9qR43QP PqsC7quXMtRRf1SMJyjAWo fiNlKoNgSZUdeBAogOW8ZL EbZX4pgrncPMffXEnrLYZj hmH4LRIhqPEpW9WhOTOiRR 9izalaIKM8JXunORApHHD2 OyVpPHRtp7Jjeap2WePynY FyZFxwbGFpblxmczIwXHBh ngBXGwJMIS1FTSBDWKJZN2 zIZNIRVK0USBPBUirfhNYv CHAwAGUhKXCYMB7DLICbE1 iKWvTfHY7CUNFgVNHkuSUo PVYfugPNWuIMOK3MMN7UAN wgQklPUFNZOlxwYXIgICAg XDOtSKnKN3SLKDQlRWVHJ1 TJAQgJLEanLb0vGLVVSH0X I1sQZ4HVWUHOKT7VPJdsUE LuHLRgGAJiVS9QWNtpYBDY VD5LRIWESGDOFNcMGCSPLV RQFYlKSDFXE3WLUWbBULJw xjbaKXMhJj6pP5BLZENCTA wgQklPUFNZOlxwYXIgICAg HHFtDSKJT0OJXcEIDS3LV6 4DDCOQCWXPIA6LYMKEEMhL BG5AAROSHPOJYOFEO3EuuT FyICAgICAgLSBOTyBFVklE FK5ONGUMXeIJWTeESALoIJ lTRUFTRVxwYXIgICAgICAt RZ3LWKfuQHDOHP4QIDEDJa dBTklTTVMgSURFTlRJRklF HYMMSLSCAK8JZl7GNGKLZh xwYXJccGFyfXtccnRmMVxz h0SsQ9RqTaNrIDolayFdIP VsKkalvedlKQZqOEO1ibUg QBLuRCjpOSJfWLsoEw2fjS TtnPyiUdEtYDBpv7gudiIY OSgjYwSbM935JJGhIMqeu4 kzu1CxHHYezEXuq0D5MFYZ qwozkVb2f5ugEaKzNdJ5mF XcVMbuL4sxioLpvBRwK9Eg hFAuaMb3rZxkJ99kj5A3Fz prP8pqYJRdOYHqR2YgSG6h DAXyFaz0KZZ6ZOD2NYLvIF ByY5DlWS2oKEIqlAHtJQz3 w4tzxEjxSTMoXDL3j1kiTJ uduhH9XZ2rbe0tiUu4v2zz czEgRGVmYXVsdCBQYXJhZ3 EhyMufZa5ckZh2kUjtQxwf XVW7Xet7SY7rpc67hqz7xE bbYGPevgumYkB8HAutYKTg fwrbBBu5WUagZFWabYZ3NC AnmUFsJ5EuIKGpTB5etci0 JRC4BEncYTJoQdC9ZIWjhY GyMNWqiOsoQOual022AVB3 ExMwPR7vE0Rwf5E2oT0qbR ZoZRRxxYIzIyTsBEXrup5e rMEaTFyyq2YyWCQ4ucW9hE MwvKPfKQHuVB09Hxmwo3Am XecyGWG6BAIompCru7Ebe9 pdNkLujxFaP0qyD8UiTCYb GPUyFEVuQnOayrHzs8Abp6 TjvRXijOg6e9rhBDVuYHSv xTkxc2tvMXB4RSKhD3E7nK Zuo8euDEyeRGYdhDC9xbY5 CHYbcRJfF1IbzM7xBQSpQW 2adbi5c3syGUR1VFyaCKRz GfS4kdY9GCYqnFIxIOKtxE qaRBepv798GVJ4GzNnXRMr j1WzR0JyqTrdJ54afUwcQ8 0bSTChjSndzG4bbGzvdI1i ZjBcZnMyNFxxbFxwbGFpbl xmMVxmczIwXGxhbmcxMDMz UZpbZ9luJyLyBKMewPhlES tdx4BeKJOeDXLmIevkswJe XHBhciBJIGhhdmUgcGVyc2 9uYWxseSByZXZpZXdlZCBh jJsrs0EkB5yoVC2cN4GejE RdpmGhdnIkWQgkXHAmm3d1 mTMbrFght0ObjZPcIV07cd YlVOSkIML0WHFvg2luVM77 obvtHfUciK10ynJiyoJwPP Mld7wqP4ikaNDtp6Tlu5Ka xfKzDJztf7KzPQ7kaEYacs ptaXT9ZXSwzJAqzhFgocT4 aMjxAZNykA7cpN4ivBwqeR 3oHxMfTuUwHHbmYV2pQUPa J3mlfPIwWVStQAKeR5thJi FraN4ljSwnKhbfzoQ3KPWk cn19 Clinical Information (test code = [id number]) Shivnai Schuler is a 47 year old female with IDA1. Gastric polyp x 6 r/o adenoma2.Duodenal Bx, r/o Celiac disease 3. Gastric Bx r/o HPylori Gross Description (test code = [id number]) k9ktbRPxFMGfoFHPLCN2GG AbVG7cbRyjsHr1zWvcCGCg rdG6xQDjRYrbh6yoDPM7b2 fmnoBWMigpJJWtFF6iCOhk EZLaYS6vWkNuBWKcDkEfRI BhcGVydzEyMjQwXHBhcGVy qGX8AEHpNM6ksmcmDAxfSX ycRPUfukZ2AQRprJHjR3Ip IGTnYD6ypyywXNC4SIGDDv iuGc8wtRWzoMygZaByFlGv YXJzZXQwXGZuaWwgQXJpYW e6dC5WKnvoWUI5LFYGFnpx BggxaSnyh1AjiTMrTOZiXF xcaWQgNTEwMDAgXFxkYiBP LzFdNcK7Jzo0LAZ4NuN7LQ a7RDNBHUKnDxxfAHE6LpQ6 PMe3QASlQF3oDUcvtZGfGH foPfibNAvqW623OJtdBKMw O7HvW6QpGAcsTwEgWRkcEO YcDJKeYJajKRJpL9ZATVOk HOS5QaBhIKJlORk5TDfeU1 OXLZSpMYEoVqL6XSGoEzS7 ASz3MJVKQp9wECdyRdXqNU w9IHS4SEj1PxFdXBKaKoNv RTHtJXKfVOclhPLoXI7goM fnTEDnAF8GVHGvLOltUXZv UdInS6IPO3vCXD4eGMrabO JjaFxmczIyXHBhciANClxw FIZfUX0XJKMzKJcbNHu2lz SkPDErWqRvDPKbM94oy4UQ a3VsRC2VMPb8lkJgyvxivH 6oJYIvjuHbENkEeDUndT6q pjXLKWwrGJXeD7ZbocZjYQ vkMHAiep1xuJncXJokSkCd bGVkIHdpdGggdGhlIHBhdG ygoeErD8M7juFwDA4nJJRY HPYshO8zHNYtOBIkx3UarK VwvHruT3DcyXBpGxXlw3u7 uEO8WPIjqkSgECJboBCvRO Kdvn4vRDngGuUiO6Y5XPRr GYKgt39pmOD3tvKiAyUixX k8wSRpNCY1ZC6cmPjlbjCl r4e6cM2vRYNws2V4CXCbu9 B4XJOyshYwqBEjpNKbDXAm TE4oxhKgOI81MEAzDSvqWC lwSAO4YVF4TEXseQBlm3ln unskZw1oDNpjLX8lPCcrYH 59TCDrOIekWTTbU6DvU2U6 KVirIPOwWJMqtMHbmJ5ufq MohcWytZf9SYKzERX1mTFx aYrhSQJoUvhcaJS3DNSzSw GpyfWve7RucVy6aSGpDNgj XZCdkT3lcC1hROFjYYHtsq ARImbjVCIxULlvi9QhFZza cGljWHNhMzAgDQpcZXBpY0 8fk7GNi8Bma3yumFuga1Mk mEVpZC8pzRXcDF3Zr2rnOM XwdLLiQFO3FMiyr7ljKZjj MIP4GFHnDgDgUJVfVP6VXu XiMWnzJGw5NCdcTKt9BCc2 OI8KDcEfIEPuOlb7YvZ5Tl XbWTq2RQuvYJ2WKTG6XWSi ZVZwDVieWPD3GYJwJTe5OY IgXFxzcyAzIFxcZmwgXFxu Z55qzACwPWogXbLhVAqdgX peSNZyJQL9VR9EWXMhAoZn W1QKY2yGEO8iOfdnvoDmLO ZdaiSGIhcqXWIpAU3PYENr JPojKSv2oeJzTVUkWbRiZF TpG20fv1URj6GmDC4QMKk1 bbBeaarmfV8bIZYbpbSdf0 IzMFxlcGljWHNiMzAgDQpT eBRxnA2ohbBLIOdoTMKzF2 NgrsMlJYmmLFZxng1usQhw IGxhYmVsbGVkIHdpdGggdG koDZKluNjgquTdI8B8giIn GO3nFLULUIWujI0lKHTmAN WnXZHtELUxsB9rHML1n2Xw cfDsCCOPKIQwxPpmBX05vZ BjZWxpYWMgZGlzZWFzZSBh qhUidzXet12jkkEua2NxDV 6zvBdmPJgBRItzDgWpXD9a OJYlswBpn2HnXI0cWVKxfE AjQWKktlopdCFuSEe9gWJs NJFnAjZjzBtib1RzVTChNP bvTY14hbAlSC5gLMzzRX6b UTmwNV7kUKJvAQHoGNQzSg AzaBLcLtUftQTfPsCuN02v DlQLvJXjw1DiJ3lsDF6hxU YvDjmdoRFgSXWehYmyj7Wf hMBjDDHrq1LpoFIzZNjpJX 2xGIG4An6aoNHiKHNsfgE0 z3VuYFqrVSKdUksfLBHzLK mmp5NwAMCxbTNDk1VtSO7U XHBhciANClxzYTMwXGVwaW QHv6NoLGMPYgsnoGqfTuYq cNXeQyO3BROysATnLNL8SD 2mbOgyXWFrAQe4NDxtWKKs K2HzY1DeDXxvHwIwPQyvWV OfVSClSSsrUAOeN1MTTKJs RKE7AwUhYOCyDTm8XVekQ9 IDACOsZJCyQtJ4TGM4DmA0 WEg4QZKRIg3iYKzrQjTvXX YbSrF1ORv1ImYmISGePaOb GAEtQZLpGAyquGStON0dfI jxUQXbEWUxBCO2DEAqfPCP g4ZuQFSaKQufGaRqSJBQYU LVDN0JGrTCTXMrTwVyvSGa MF3CZXUguwRcIDykcQmgwF 9fbZDrN6okSaWqGhqdtFkh TmVzdERvYzEgDQpcbHRycG FyXGxpbjBccmluMFxzYjMw MCNjuSHBb4DuAMGYKtClYR NpbWVuIEMgaXMgcmVjZWl2 IKYoeW1dEu8axEHupN1hvO DdJZcqTEQix0m4nVT4hRQs bWX6lONsjQzbGxZkRU3owW AvTXEYGW58sFMamlWbPDMq zQ2tGPWeRNLsGVR1kdpoTP MYXEE7pIAxn3Z5OTinOWR2 xC9wlOmvSiRzI7Q7SAKtBB Lrc41jlLD5nyMfDjIhRSOi gp8jlR2kPAhudiFtcXxskm Uog8X1DHUvi2W9NYZjzrFp wQBlhISzBVVaLbY8HLClQp U5QUEzRBRhnWEaGHOzIT6i VGhlIHNwZWNpbWVuIGlzIG TjcTSdpjAcKVBnfr61X6jz JYWagY4rv0wsGrOoCMFdAN IsvWSztUM5GHZmoJ9tjI45 hsKqvjHCCP3lqPEkFA9UES NiMFxlcGljWHNiMCANClxw PFKpNMvlp6LsPFxvhFyhQK KrNzSsCUpJgHmeISLDS7wt bXLrKNbdNSGIDVeEW0TRRV 9BVBQcqMVKHSV3YD7zXPnn RKYqN4DoP5TnaeL1k0qexU fmc7RqzVOmXD9msVPrCU3X XHBhcmQgDQp9 Disclaimer (test code = [id number]) q0rbxOJmPYUwe7joGIXpoL FuZzEwMzNcZnRuYmpcdWMx EIpkqnMmCVeis6MvQ7JlCq AwMFxhbnNpXGRlZmxhbmcx LBJiPZT7ioVsOGQwHDzuUN ImQOihKo5hmEAagXjiFaNo XYMud5tmeyHTZMzzVwJjQ7 35QNNkEVqmo3tco0XxXMQg zGAml3A4CUHNotownVa0dH nvB87gy0V2LghdE5cqMNCn CBJxL3AaTT8oSXYlMmr3ZF T7LGY8DYClPOLtE7VxOX6k HWLpbYZpPSx3p7oogXxyEP XfJZD0e5niYXzoivNlMI6s fk3saQv6e1mexrDfKXMlNQ RqkLHYEOQpH5HbrRtyYg2q kSg6sJqiMlmkJYW1Bob2FX 7unq92aiv2lPawOYDslwjl FyK7XXzsLRGthogsCDc3XY wrXUQotNV3GTMfrYScG4Vp POVrZH4rcbd9KNE2EXziBJ AjHqI1XIHseHJjKDJlmSni BSsod158BNS8AeVjVB5gX1 Cvj0Q7gS1xdHFxBCNmyKVs IuFnVYDzgw0wcRIpCZfek8 XtBGJ9faI5yMCjfZEoOCPi WZ45Ypgru0ZyBapls2QuV0 2clWE7ESqms4ctHZ9jJcI0 qlGdUPhmw4jfvV6wXmJ2ZZ rpNK9tUA9xUTFttZ3uxuar XHBnYnJkcmhlYWRccGdicm FrQz4koEzhEWZ1TConX9vf wH5kMwN4PLxeQ8iwfD5jOG o5AKjppSN3YMWumW8oBB4q rnqbm4ndXGikWXsoDOLzmb K8qkL5SNNkjOXcE3AnqU1r ISAcWK3psfuah4gkKIP6AP bqMUQpHXZ5ZzKkMZQtt9Vd ndm7XtVir6TkxAHxPSvjE7 3wh640DAFkegVwW5gvmVQt hhxxeFBkzaccJAxvdbU5NH GuceNpb5VsJUAsSZA7PJpo YOhceOXqQSGrkAvgh7cfK2 RscGFyXHBsYWluXGYxXGZz MjBcbGFuZzEwMzNcaGljaF uoSCzvHhGmHZKcBXzaT7tc UyCkJ7ZlZBUrCqCmkALqM0 ggVGhpcyByZXBvcnQgbWF5 LGjcN6c0HUXgcdZpgUb1ku SxVdMiHLOmORS8KHynlYFw QBNsx2GzeydpyZJwIe4ktI DuNHDcbI2rDSZbRVQvHRnm XK3enJy8ITSZsEVwrRRuCz QYXJZaBE60chHkJAHErryw l5M1RMneTTVnv3OshAPeB1 ebo1JvQTGsr72hPQ5zd9L2 s1ysBJN2BW4yf9HiOMZzwT XdxJYrIBVgc0Ufzhtja8Ww MRAtanUvm9XjWKBhdtEcwI GuRCIswbPehq6jxoCsLMSi BTRtV9CwupgozZqhszFtAC Cdjb2nblYtMGN2KOCTMCNv WFXaa3DsoK5brWYOWYK6mK Ehtf5cpeMBxGUqKFVuqv58 YUQiJG9fC2lyYFMoGXQwlu WoqEMmv7ByMCIczCG1zYDy QP9TOcPXq19qCUMsAAOXeb VmGPPunTmgnMT7bkB5wX4g IChGREEpLlx+IFRoZSBGRE KzAX6zxoCzc5AzabSsyTjh GYYawFEpl2ErlERwf4AnyC xgd0VelNRuwSSuNZ4vVTRg clxwYXIgVVRNQiBMYWJvcm U4w4CkOEXuTDKzNDF5gYjr rmc4GWChmY3qIOVzI2eyfr gzBLrnUPLxe9IluM2usLNS cBSmy4IfbYDboZCMvOMsLY 0cjuFdHEqDUBbLAYN7bdYr JHAav4LyMExdK0erU94uzM ipsEy6iNJ6NYI2cF1sJzk+ IFxwYXJccGFyIEFwcHJvcH UlXDKoaOfhisRlG1UlzdFy lL8ceFSvzwYhFD5fLR0rA0 B2kTKcPJHhiaJrh6qeSAgm dmUgYmVlbiByZXZpZXdlZC Dlr0XkHQsuZCP6YEnlxhVp bmNsdWRpbmcgSCZFLCBTcG CmuZHbZNW8WHclmlVllcZg JH2fiM5mfYwtpX9ssJAexF S5mertHRBlWSNqpTtqGKAy QB3yvSosqF4rDdEqJmQeNH pyPL8aXOHdX2hswFXnPXVl BRCoN8spUrNctV3aeMapCP xjZjJcZnMyMFxwYXJccGFy XHBsYWluXGYxXGZzMjBcbG FuZzEwMzNcaGljaFxmMVxk XfHaPKCgALmoP5azNmTtC0 QaUCWxWiQvlUXmM8toMXjh KPR6JLGpBB0viIWuCB55iN Crq5orWOrrcIkigi8sG43s dBAoZIdciDyhCLQnl31vw3 RdDCBahxFyag6uDLKqvdF9 nD5mWQKqnKmeONXmgGDoFA Knr1VdBPxbgFFubvDiJHzu WWKcPRFhuIWuubI2chKpic GioqLmNLPjlVgnLIWjt7Tk LLWjTNkoo0Gyrh0leLMlTE MzzeSVtKhvzGAjnN1gE6Om VULnJRAxld9nPWRazK4cWK hjm9CbvhjnGHDsGGPyQBBs cwWtsw2uSDFuuLVRMA2CUW dfeCYju7RgvgSbH5bYVAZ5 NUQwNjYwMjgxKSBleGNlcH OoKYOhmi70PUSdeU1khGmn BFSieP9iqV6diJizaY4zEr MfSnJwZMvuYZ5yAYKuN3bb pXRuKPOpJCJgX6imDqFggM 9jaFxmMVxjZjJcZnMyMFxw YXJ9fQ== Embedded Images (test code = [id number]) [facility] [id number] 19:23:05* Test Item Value Reference Range Interpretation Comme nts Case Report (test code = [id number]) Surgical Pathology ?Case: [id number] ? Authorizing Provider: ?Dominic Keita MD ? [...] HPylori ? Final Diagnosis (test code = [id number]) q7vjcCSrKOFzz9ajIABkdF FuZzEwMzNcZnRuYmpcdWMx JNnfzzBvUVffkKzdSTM1SK RiKB6fyLcbrHd5hGdzLYFu wkT8qHWcIHjhq6siMDG4w6 jqdqjhMUFvWMmuRe5hiUZf pGlvEgOsCDVmWIl5zB62XN NgcY7hvKWhEKf7SQWuwDPw pkFsNtJeAEFolFRbtOF5JY WpRU5wqzigHGweHDpiCSZz dzG9NUEjhWDeV6EpCLBxSQ 6ctuxwACC5GAfiMCAdPXZ2 NsFlFJApr9Fowyg4JlJzuL FyZFxwbGFpblxmczIwXHBh rvZSCnMNFJ0FWEZTRRRDM3 xXQLBEYS0FEFSLXejooFWb BOUxHNWtUZPHTE7YIJNcH1 lQRgHpPS8BDHNrJYFrjUMj ONTdleWQUaTNEE0LTI2IJB wgQklPUFNZOlxwYXIgICAg YLSaKXtZJ5LATJLvEMUGT7 FELRoSYJqgIm7jURXEXT6X E5jKY7NNOTZKME0HLFqnWJ WkXZYmBJBuSK2PVAvaGCCK RS8SQNMYEQBQPFaHUBGXTF SBXPsTQLTSX0NMZBuUKYRl luitQSWyGo9dI5NQRZGRZW wgQklPUFNZOlxwYXIgICAg CNGcLUVBF4IGUfCJDS1YB2 3OJYQIYSCJYL7YYAVSVSxC AB9JUWYQULAKMELXA0CcvB FyICAgICAgLSBOTyBFVklE PX5ASBBHPfICPSgDSEDrJI lTRUFTRVxwYXIgICAgICAt HX6SPDdsIXBALR7IVDKJIi dBTklTTVMgSURFTlRJRklF QVVJLSODKP4VIe0GFIBQUl xwYXJccGFyfXtccnRmMVxz a2KvD7AqBaLdHPnkleJsRZ WtOhnzsvriUCPfUBC0mtPu ELYvRImhPJNtBVsdHe4xpO CsoQjpTeTvALUbv6xwtpJX UKosPdEhC963NFEeSIicv4 jaq7CzLQWfhJEdt8S8DJVQ capheEz9n0fwBpRzXbF9jT SfPGagR9kdhvQmnIRzB0It bLGivLe6aJqzA41nf8K5Fi itH9wmJLNzYUEiI7OsZT8o DLUeNxj4WTF6CNJ1MSJeBH ZvS5ZoFT6bVQMswQQyTYi1 g2jxtQwlRJReQOQ9c2suMW nsjeG6GH3pwk7tjNr1t5kx czEgRGVmYXVsdCBQYXJhZ3 NmiMxmKx9ocQf6yFgkBzwg HRX8Jzc2YW4kls51uyb3sT amLELqekwiTaJ7ZXlvIFDp uuyoHWt7NRstRJVjuJC1QE YklIWtC2EoBUDvWW8poff3 BYX0OFzdHZUgOsJ5ZZNpzC IvSGBonTkaUHbpm845NYA1 ZyUdUB8yS9Woj9V3oQ6gpL BtZKUvcEFcIvXeHMUycb1a oRZoWZlpo5UuVVY7hcT0nE OooIYkVJLoHR49Fvwus2Aq QluaVTR1LXEtgjGth2Ixf7 aiXcZgdgSxU5amG3WpPXXo SRCzZWHtRaModcUok0Bbn8 PfvRWrxBz1r2wdWZIfLFXf gJdmn0jwKMJ6RPTmX8M9iD Zuj3emSRgbBTPucIV9ioP1 OCVvvLHuO3QymD0kJMCbGM 3zrnx1a9qiFZD7LBgfXNDu WnH6idJ1QOWflSKwTRVkkC cgZBcqj510WOJ3PzBqDDYk z7SkB8QipRtoH42krQnbX1 2aTSJxbNphfD4xjXsoiO9a ZjBcZnMyNFxxbFxwbGFpbl xmMVxmczIwXGxhbmcxMDMz GWdqB6rtWwPiYBJxmWdwDE llc3RrXONwKDLmTwrjfeSc XHBhciBJIGhhdmUgcGVyc2 9uYWxseSByZXZpZXdlZCBh jCxmt1LmE3drXG9kH7ShkV VtsiLfsrGoFUduQZJth4n6 qTSevDqjv6PtoAJyTQ41ky PxCGIaSYI9PSXvt3paUP66 srwzQcUpaD57ujVlnrJtGG Omd8hiR2wzcSHzx4Gku1Kc thUyLCcro3PkOE0igRRsog sulQD9AREabIQsfxArunP7 jPkrFWPogO5loN4eiLsieP 2zYvYsAgDhDEqaDA9fUIHm E2krbGErGHUrUISvZ9wsYp FkyC0eiWlkQjyoafY6IERt cn19 Clinical Information (test code = [id number]) Shivani Schuler is a 47 year old female with IDA1. Gastric polyp x 6 r/o adenoma2.Duodenal Bx, r/o Celiac disease 3. Gastric Bx r/o HPylori Gross Description (test code = [id number]) x6rykTSaSENnuGFQXBM8YJ IhCM7pkJvjaAl4dHuiTTLq qeA6lXKdMHtuo8ikDRD9i2 wmbtWQShdmJWVwUN4rITxx BGEsOQ5kAlJiYWHbOhPvEH BhcGVydzEyMjQwXHBhcGVy qMZ5PUOuIR3awmyuLIapMS fiAPTjmqU7CPUsmSRjL0Pn NKWaQH4psyunBMU4MMFBKj mhMr5blYAghVcfViBzUoYc YXJzZXQwXGZuaWwgQXJpYW p6pI3VWhpzFAB6TFYLFttw RjwlwIpmr1PuiUXbRGRqSH xcaWQgNTEwMDAgXFxkYiBP GxDjVlC2Ypp7RQO0JtY6WH t3AXCDFTLaMegiTGH3ItO0 UWk3ETOxVL7fOVqbhZKwKJ xiBaxhOBshI293RCnfSXQi A4JkZ6HnIAvmNmUzATagCE OfMASgQGhrIAGgQ4TLFTNy TBJ5RxFbUOLsLBf1IDkmB9 KGZWWoXGOcYhG9SYCqWzM4 SPy3TPNWIp1jIOvrEcXdSJ z1KCM7HCg2EpJcXYDpVcLt AMBvBDPoVOszkOVePX9xzP uySPWjEQ0DOMVrPVdrIDSw LbWvT1FJR1dIUQ7vFXpymS JjaFxmczIyXHBhciANClxw WNLpTZ7RIWAgPLijWSh6yz UePWStIqCsLNHfQ04lg1HS a1XyZT2WZDc2fmMsyqvfpT 8eQKTmqfIfXPfEpQBncX3r pgZEPUrmZQVtB0AcpjKtOU fjIUXazp8umTskEUltUvBl bGVkIHdpdGggdGhlIHBhdG njdvCsL8Q1acZjXO0zFDKB ISBegC9lPWCnXOZhd5IioF VqrZouE9JfdQLsZcPyb2x5 nNS0QWHmtmJmQDFhcJIeSA Sqyw8cNEhtWdCoJ6D0YHHl BTJqi97anUI8lwXiYtQywX u5oHSuROT6XK9pvHkwjoXz z6b0sB1nTATzw4N4OIYdt2 W4SSNypiCscZGkbYJoBPKc FQ5jmfHtZA80ZXTaOLpvPI ddAUW9BXL2TPEtlNFlx6ya lyluSa5tSPtoWQ2dMFkjKM 36CORhFDggSZZnX7YzL1D0 RNaeZSQcXUXcmAQdcR2nna VavaApoLf7KOIfKKE1sSBm yKdeLNBfNnquhYV9HFDpEu WzdlIwm5XqfBw7oTFcBRig ZDHkmK3ftY1zEOHwLWUwig LDZisyQTTuZOnth0EwDGrs cGljWHNhMzAgDQpcZXBpY0 6rg9RAq8Ipm0iubMnab7Aq lAHpES3esOAyMR7Hm8otNA HypQQsRMO4YWrfr5wgDHbh UAA5STHsUeYkPLIgXD1TYy ZmJCvgSDl2XDtfDKf7KMn1 KX4SJoIqEFQwAcv8DnS6Ts WwIGa1YUwaTK7AMOQ1CTUp HWRsUFpuSTD7PIMvYSk9UY IgXFxzcyAzIFxcZmwgXFxu Z69whOFoUWzvNbWsAWujuJ jxFCAzEHE0GI9EXMVbPqTz V4PWX1iYOI6fHokqbrOrMA YcgyTNHwddBXAkDN6CWEJk HRewQIv1hzOwDKCbFtLvOE NqI72sp9KXw4LxST8PAPm5 gyYvvhdwnW0hDBElufMwa4 IzMFxlcGljWHNiMzAgDQpT jUUijS4okiFYRSvvREJiH2 IxtlWiSIdoJPBblw9aiEpt IGxhYmVsbGVkIHdpdGggdG epQOUlsNlnzaFbE0N4maXr YT9nKHDXZJYflE9pIWXxOA EgJITlNTXjwB1nMBX6e1Pn wpDxYFQFBPGrbHbfEO31dW BjZWxpYWMgZGlzZWFzZSBh yfSjvlFor27ulzTjr1TeQR 9iaYkeITcWBSzdVpXlCR6q CTKwebVre9VnLS6sJWXjzI EmVDNazcgwsHSrLEr1tJNw VLPdOuVziLvtp5AvOFFcKT rhTE63qiGzVR2lCAksDF9h MVxdNK8fYPIyCYWhCIWpQg AgdQVcOcNceOBfGmDvD13w EiEYpYYvb9PiZ0cqWL3szN WoCkuudHRgAWFahDpya3Jl gADjMONnq7EbqHVcBUcyUG 7rVCT2Yg7niZWbQKHazkE9 v1WfZZztIZCoMfzqJURxDN swu8AbYRAnwHMKu3AlZH3K XHBhciANClxzYTMwXGVwaW MKy0OaOZBCFeqeaJldCdAk tTDuLqV4XZDkpGJsPTZ1JL 3maNowVIGuLOr3FNtfBYLo Y1HdJ5FoGIczRsYwXYugPW FdFOAaYWsnFQAmJ3VZUBPs SRV9WgXbOVIlGZw2YEskQ3 WIFEMtQGKhGlG8VBC6YnJ3 YFq1HKERTk4fJVzaQmUzUS DvQfW2FCa7NdWoJYDkIbSj NKWpWWKjJPrbjRTeSW5biF cdRKOgYQJuMRO8OENlpMBB g1SjVHIjODxkRnGiEANSJL GMVJ3USxCFMDWpBeMqpLXl IL6CVANzodFqMZtuyBgvrW 9nmXReS5nfTcBsPepdoGed TmVzdERvYzEgDQpcbHRycG FyXGxpbjBccmluMFxzYjMw SVBfdIDBk7JrOQHLSsVdFF NpbWVuIEMgaXMgcmVjZWl2 RVLhjJ1bDs3oqKRyhB0qsH GyLQpyUUPpm1k9gJA6lTRd zFM8sOPydJpjFmVlLS3gsX YaBREKPF99yVMfweNeOJZs qV5hJXOhCGEpXRS2znmlTD HJADI8jUZmb5W0GWevSTE6 mL2alJolVfZxX6M8EOHyAP Eph65kuOX4gkPuBjLsBVBs qu7icA2bYImaacHhaRdhqd Ftv8Y4VKTlm6Q1UOAowhBo iAAidUMxCOLoYzA8AVBeIq J9IOAhABImlVRiZTYcQC9m VGhlIHNwZWNpbWVuIGlzIG SdoYRhbwIvAFDsog40K5ev LQKeeV4dx4oqPiBmSBClIW XdpMZioAX1WYXgfX8mnS91 nbGsavJYNW0vxBXoHM2TWE NiMFxlcGljWHNiMCANClxw AOGpYNwfl6YwJUscvGnaXE JzYwJxYMjJdYnuUMBEE7er fNOkUNjpYPFMVCrOA9ZEQB 6MPIQjxUHCUHP7NF1sLDkt EWMfC1SbJ8TtgpL7h7wvcH wgp8NgtFPeBL2vjBQyTN9D XHBhcmQgDQp9 Disclaimer (test code = [id number]) s9gfoGLjIGXni4qjIFSamZ FuZzEwMzNcZnRuYmpcdWMx PCcxdxGvABlnb3CdW7YuIz AwMFxhbnNpXGRlZmxhbmcx NHEsPLJ0lpJlMANdGTjrVO BnDPxqJl4naAFvzVctHqLb MCIng9lrihOXESdtJyOiB8 44LNJsBCdhz3dbr4ZhNGOj zDQbb0B4URHUzzxkuYx8dH svP76zz5G8HlcbU5qkEPBe WMGyD0XpRS4cGIYpWps9WO R7WGQ5DHXsWJKgU7AtXT1u TVGmwVHaUUa0k4xxqCkrXL SuWLE6d1ktFTybimZsMV1l gt0zqJy5y3oelpGgLIEmAW CnvVRDZHFvP4GkyXdkGk2p vTf9hSdvRousLJY9Bfs4NO 3naf15kwo8cDmlFAEgncvj RvN5OTliEZTfjwcrHFy3ZJ btVDWfoFC1YJXjcSIkI0Tc PVCrSF8afaa5BTN4HFybMG GgFaT9PEMxdNDhWXPlmJjq ULixx131CFO9PkKvEX8cO5 Coh8O8gL3oyCDbRDYwnCSy RkZbNHOoja2esWWuCMhoj3 FiBOX7hhR4nFGboJOlOYPy CQ61Lwyyd9EnZcqej0AxP3 3coFV7INujm4zoHZ6sXlO5 uzOfGAgqz4aylQ9vXvS6WR ziEP8kYB7yTHFiiY6haevn XHBnYnJkcmhlYWRccGdicm MwJq4nyBnfAZG8VXynF8nn fM4nMxN6DKxrJ0odmQ7hEV b4SMuwaRP4YCCrrV7cVY3l awthq9jvNQxzNRoqDJEwrh U9fhC2RVKtxDPgA1UzxU1f PEJtUO1iqgrws5whUEC2IW mhTIOwTHS9LgKhTCSni0Zp byn7QnEiz7SxsOKgMEymZ9 9vi107KDZrymHcA9lozKYf gsdaxBHaakipQLkhmlV3AV SkksFxo3DfCMDdAFB0DRru TEblfXRyRPKwtVwhu1qdV3 RscGFyXHBsYWluXGYxXGZz MjBcbGFuZzEwMzNcaGljaF glIBejRxQpEYEhOLwwE1qv RlZwO0AwFQDqYqDwlUDwS9 ggVGhpcyByZXBvcnQgbWF5 NOtxA1d0AMKlafAhjCb3sj SyJfKpIOJeHWI2AFajkABb HHHik1DusmaqrIQdTm4isL DdQAFyrV1vOJXiJBIaPKkf DT1soDn6HXXRbIUfcTKgLu TCKLLbDT42tmAeOTKYdrjj y5O4VVdrMRRzx1VlcHJsE3 xag5GdKEVbl98cGS9ia2Z9 z8auBAK3VY9ai6WtNIIwaY NkoFHmXKMpg9Rxqjyhg1Ia OPVhoqHms0KhHXWvrjQyyM QwCQRvavNggi4nowRmEVPd EEApF7BzkfvqpSkhgiKiBW Mnvb0yyzBnOWQ5ABNJGDRn CKIsb1OuyD9idVKHMNG5gK Byoz2sdmJRgUFuMBByil41 FPRgLE8uH6mhAGLiIDNnkd NrwKQyg4CfLWTluBH2wPDd VI2OMxGCy28bUCRyRMUFkr DlIVCxgCfhhMD0mdI2aZ4u IChGREEpLlx+IFRoZSBGRE HlBD0fbjPan9ZiavHjrOct DTCadQFqn4FobRYup4XrcM wcv0DloYEfeLNdUT0nGXTi clxwYXIgVVRNQiBMYWJvcm X1l8GoBDLiHMZwEYD9nBda iil4HMMksW8gHVHvQ6prjp dhMEmdULMny2HtoM0kkXKP bNCey7LsaSCoxFXFvSRaRR 0tykSwEWfKIZjAJQK9hvTx FZNep6QeZRkiR7ceE09zzV ejlTm6dKX3ENE7vI3hGpr+ IFxwYXJccGFyIEFwcHJvcH WxFWPgjYazoqLnR9BoinAj nN0pnGFawsSqBW5jUA1zD8 C3tCZzPKRfhsAaw2fmBOaw dmUgYmVlbiByZXZpZXdlZC Czi1XiIQpcXMV6GJrwybNz bmNsdWRpbmcgSCZFLCBTcG XhiUQlVQG1LFarfdCzkwZc GT4xwJ4jbYmaqB6leUZutN N3waqsGQDgXITslKtkXPIf GR2boOpucR5eYjIkOeFdMZ cuEJ7mTYLsF7dqxGGqJPWc BKHtI9ulXoBtkQ0vzZgbVH xjZjJcZnMyMFxwYXJccGFy XHBsYWluXGYxXGZzMjBcbG FuZzEwMzNcaGljaFxmMVxk MxYrZXEfAJmmW5qdAvQzK6 MhUGHnMnByoBCiO9auUPry MUK2ZLRuDJ4cwJQdDX20fA Dxn5ziXLypxOixbm8xX24l yRZxFQendBdzIRSao51ye3 WqYFJmsuChlc2gDMWzeyG9 qJ6iCUUufSkbTKDjwVFsLZ Mgm7QuUIabaXWkuyCmOYat YFLcBBJpfTKanjJ7gnWnwf KcyuYsPMYmkMwfBATnw5Fm WJHtRXehe0Fxzx0dwXXdMX JxoiDSuPemwOIdsZ8zM9Rg BDTxZDDcqw9iAZBlbQ1qGI szb4AwhysoQJGaTTJqOAEx isHhdp2xGDTexHNSYN4OCD ovvYDgu4QenxNlC7jJLFE9 NUQwNjYwMjgxKSBleGNlcH CnLXLmkf67LBEhgN9krObh WMQvhW4zmX5tbAaazJ0rOs CoDtYmFHiiUQ5rIXDhX7fr zPElZKFxMAYdQ1eoHwWndW 9jaFxmMVxjZjJcZnMyMFxw YXJ9fQ== Embedded Images (test code = [id number]) [facility] [id number] 19:23:05* Test Item Value Reference Range Interpretation Comme nts Case Report (test code = [id number]) Surgical Pathology ?Case: [id number] ? Authorizing Provider: ?Dominic Keita MD ? [...] HPylori ? Final Diagnosis (test code = [id number]) x9rfjGXcDOPmg8acDJVuyP FuZzEwMzNcZnRuYmpcdWMx GYrttzCjIEdebMxsGZO5HM QmKC8eqVbceHh9aAzfWGSo jqW4kVJeQEgus2jtZSF2g7 znfoarZDKaEPhrTo3aaIAh sRcyCqRzPDWbSMo4rA75RV IbvS0doYGwPEg5XKCyeIVw fwUqDwIdHLXcfCNieMZ1FJ WcIO4ltssbCMsmNYviYLXg qeE9EUGrgRXeG1LyLOOeFI 4kzmboKUI9NQsiXGCqLXV1 SiXxITCst0Eiith0YpYkhE FyZFxwbGFpblxmczIwXHBh lyVYIqZIFR7TLTTDSORMM2 nBILQUUM2PFLCZNnvdcCDv BWYxUDGjWJGFXB4AJIRlC4 oIMkSxNF6GHLBcGQBmpAAr MOGyfkCCDrFDUO4JXN3RGP wgQklPUFNZOlxwYXIgICAg DHWuQYiBI5UGAKFyZOYAM2 OMFRhQXQhtEj5vTBPUQO2P C5vID9CRDGDFGL3CJCavCI WlFAQiXWWbMC0SAMfhGGMJ MU7HTQXTHYQHFNcBEYBHMT QQCApTXCPKK0FUVJjYRRIr pzfaSFLvVg1vN2CXMFCQUS wgQklPUFNZOlxwYXIgICAg UKBzRJHCO1NMGjJIWJ6EU0 6XBCCDQJQHZF8HJITYDCuO JF1KGHFWTVUNGQBJA4CfpN FyICAgICAgLSBOTyBFVklE ID5IIWQRVhKJBFcBVYEhQK lTRUFTRVxwYXIgICAgICAt TY4JWLksJAPPIT7SIEWIMq dBTklTTVMgSURFTlRJRklF NLEZDEBYVH5YYy0UOTMEJd xwYXJccGFyfXtccnRmMVxz e1BqI4GjYcAbJOuognUmLX WeHxqefsteZQVsVJQ9moQn XZKyVBodRUFgQBqrWt5ahB AdgKjrWfVbHHNmu2qwogBL VTgzThKgW102MNGmBSpql2 cbm3UzKSSssKGnk7R5YQSF vvksiXf4t3ndHxTtMeT2wB UfBHghM9mkglZrdCEhY3Dd wEOqrVf7dMcjF99ia8Q6Uy bpK0uzDJRmPFDrF1DzVO3j WYOvPxk8VIQ0QXW9HDMcFE AiX2MkHU6lFOXmzEZfPVf7 q2wjiJzvEQAqQTT9i7veTK yqslR5AT8jba0slRa2v3vw czEgRGVmYXVsdCBQYXJhZ3 XlnGoxMe6rqNr6zKvpSffc WUM5Kbt9GG5pud74kmt6qJ qdHYFvqbwcGlT2PWlcSYId hhsoPCx4KUpdEBPyvJF2JJ SxhQXxK1BkRMPrQK7udlj0 JJU2TNibZMLcLyG5DDLcuI MmKIUqkIadUIfma820EGB4 AgQlOC3gX8Lfk3X1nY8hwE OxIEGgjQKuMmFnCIHypu7s wLPaKVsts2FvWWT6hrK4mC EzaJAqXTOmPB47Bgroa4Vj DmnjNOX7ASLzhkTcu8Ycz0 qwUtLiunJcB2sbP4AbMVTd LJDdMSBbSiAmejIhd8Dpo0 AwtUPpxZg8l1uyEZLyGSGb cGdyf9nwVUZ7OPDgN0S6rT Rtt6uhZYxnPREocOR2tvP4 BMIxoUFzI3PbfR1rWVThOQ 4ujlo6g1wsBPQ2JAajAPJh SmE9suW3DHEauFSeQQJihU wtGFxjr134SYO1RaZjWIHn u3PvQ0KqtFqjI10utXwoM5 5wYFStkDqayB6puHccrE2h ZjBcZnMyNFxxbFxwbGFpbl xmMVxmczIwXGxhbmcxMDMz JFxeK9svSlGzGUFvlXigNP bbk9UcEMPrGEIpQyivaeEi XHBhciBJIGhhdmUgcGVyc2 9uYWxseSByZXZpZXdlZCBh zWyhf5NwN3gpCK0tR2BiwB XjtjMjndHtNDsbNXQcy5p8 xMUgcMnfo7XhhHLmGW82ib LwDPGoGUX0KEZxx2lpFB98 iwuiQsArsM46gaHcwmQiJX Nfg5jzD8haaFMwj9Rym8Qg baFkDQygy2NeEY3ycGTdqc xqvCN5PMEstFHxcfHculG1 kNvbNIQymX2jcF6weMwugG 5gFlEpLlVoLKltXW1nRWYh H7gioLIwCMGqFVHiM8mjPb HxaA6ifKqlRzjoybK0HXUx cn19 Clinical Information (test code = [id number]) Shivani Schuler is a 47 year old female with IDA1. Gastric polyp x 6 r/o adenoma2.Duodenal Bx, r/o Celiac disease 3. Gastric Bx r/o HPylori Gross Description (test code = [id number]) j4qdlZRoVXZrtBQCSSD4MA YnKC6vgMqqvLo7rThhIQDq ttL5fOBsBKnqo3kpIDL5t1 urvbBBBumuAQDdQR8rUDmz VNVsJD8cQwRtQTFoSeMbHZ BhcGVydzEyMjQwXHBhcGVy eNT3JPFnMX0ntzjoJDukCC svESEwaeT3PNEucPXzH9Qn BBVePS2qjvwxCWE9YOIOXi upNh1tvKLdqReoAkGcXbDw YXJzZXQwXGZuaWwgQXJpYW x3kM7OFaugVYX6YTDQKwdm VnfptWnra9EhoNHzWHZgVO xcaWQgNTEwMDAgXFxkYiBP WfEsJcM7Ukw5QIK8QbC8AZ m8KDJIABFjCzwsUFK2OtQ4 QZg3NDOkUC7zYTvvvGNxON fmFbcgGOfgA248EUreYAXp C0MyE3JtBYudJjXrIZtsIU FaFOCeYXikBXQkJ9TKAVAa UYH5YpAtHHIdGSb8ROnwL4 KSLUXoFEQfHrX8WNUwMgK5 QDe0JAFGMh8pFYmjGeIzMD j9QTF5KJb1PlOaVZOqFaZx TSKuXQYsACanrJShOF9vbE lpGQJjJC0GJNKgJYsmOUUc CjOsN6OEF9dETM7dRVjxkS JjaFxmczIyXHBhciANClxw HBHgLI2ADYQiVZypXOh3aj HeAUKrIxIzSREqO78ra7CS t7YkHP8YYJs7rnXdudebfH 9kSGWqjzGmLIyDiQMlnH5w zyVUVRnxEMKoT5JsnjSaSY gjKUSabd4bsPodNLsxZyOc bGVkIHdpdGggdGhlIHBhdG skgvZzP9J5lbHqUE9hRWKR FKYguB4wLZMnTUCwa7IscG WzrTwfC3VevXHzXcWie9s3 eQX1ESFtmoTeFBGbyZPkFQ Eiye4aTZemZyZaM0B2VHSt DHQxn93rdPP6pfRsZgIeiB x7vOLuZJN1BW6fuFftleNs q7p9cN1wBRJfy3K4NIVcy7 L3BUCmsyBrzJXjbAUaEQZt BM9kohIuKM19XTZvXGhuFB emNTW0HKO7KJNpgIPso4nm dbkvFr6wJFpuHA3vTVklBW 95OYKlBIicTMCzG8VfS4O3 ELuaLUSgQZWahWSnqK0mns PvkgBwlNc3FNQsBBS2uGZr sNniYARaDdlvxAG4HCEvWc BhfcHzc6XshAp4dWLtEGot BDDaoX3ymR8sLRMrQYZqle PWMmnfOSQyUWoru4FbQCon cGljWHNhMzAgDQpcZXBpY0 1la7TGh3Bxs0chdCzno2Wp nZEqVZ3cbSIjVQ1Mm7daDE NcpDGvAHP1YZswx9heQMiv UJZ3VUBeNlYeSEItKF2KKv DhQCazIVd9YJijEEb7ELr5 OM9IRxQaTMHkRjr5LsP5Pj JuORb2WLagAD4IKHM7UYRz RUSlQSqnKSP7RQDzSAx1XK IgXFxzcyAzIFxcZmwgXFxu X47ymSRoMAjlPeQgHQptzD vfRJWlOPH6JM3WLBKvFnAm S1ZMR7cTIN2fQwvjslFsGI DptsLWUoskKHGnLJ5ZRBRj WItuXZb8acAdSXSoLtVlCO MdP98ou5GUd2HtXG0VZCx1 qqZeqtgvtC6yPPBdkyOnm3 IzMFxlcGljWHNiMzAgDQpT xUBdxW9bzjIXNCbsNDCcB9 OhvqVoXHsgKKCypw6olErd IGxhYmVsbGVkIHdpdGggdG gfUYPsnMcbfjZqT4O3oxZk FH8oMVMDIYTeoU0xGVUsET ZvLXUjKOTcyQ1sHWN6n2Ke vaMqTGMPEMRtmPosGM95pE BjZWxpYWMgZGlzZWFzZSBh bcUimkLhd18jmhGjl9DiNY 6twOxtWWoFYSgxOzFvFK6j FTJqxnHmu5RkGE5xROMtcF OtKQTielqcuVBbAOe5mSTh KRTuBcTilMeay0VhMHTjIP vrCP59pwIvFD1aJDtyKR0j KIhcYQ9yEEDnYFFoYISnMa XzcNEcTtOqoLLzHoKwI06a TiBDvMOez4JaI7tfLG2mvQ NdMwcbeLZgRGIhkNmzp1Uf wCFlLDYox4ScxHAqIYreKI 0nXJK8Vb4nrEMiNIJansG6 n6ItIPuoSMLgPormJWPyNF zeg8SwGGXazHYNa2KoDP6D XHBhciANClxzYTMwXGVwaW FDh2GnHITWLgedbIrzSwMk iNEuMaY7YQJnqHRhREG4WE 8qzKevLCGiTMb1HGugXIGb W3PlS8VoKKcqZmHcCYwqDQ KnNEDiEMscEHSuD4QWUPJz CQK7JkTjVIYaMNj3FSclY9 FMUTQnLQWfFmB0ZGN1NyQ9 EQe6BHOVPs9vFNskYzPwGC XdKbR3NQs4PoNgYAOtUuQj KJWsCECuIBaqwWWgQL9vmK znCOBmUIKzMNS1BTJkhUYX v4EgTODgSFkqPnVaQPPIPX PSJF5DJmTLYAOgGqGmhNKk KE6RFCVdonVjKDksiOhclR 8wtFPaP9thWeQgZsrqvTic TmVzdERvYzEgDQpcbHRycG FyXGxpbjBccmluMFxzYjMw YYYknYFEa2DwXJANQlKmCC NpbWVuIEMgaXMgcmVjZWl2 OLOxvO9zUf5tcTHvsX1xvR SsPDmfYBMpb3j0dXJ9vDUp tQZ6mTFemGezSdEsAU8bpL HtIMVJYT55qAXonsQlRLFi fO2gMPCkKTPgQLN4hfgqAW LJTTG6cOGwg3M0OGpyJWK8 rL9ysJnrSsBkD2G2AXIoCD Psn92fkUJ9kzIoDzKaAJCe rb1fnT4xHPoibxVaoGihmp Zun4Y6SJRdc8H5JBDtegIn zSAcwQFbJSImUtW0IOXzYg Z2LQLtUXBjuPYoXFNtYU1s VGhlIHNwZWNpbWVuIGlzIG KipRKggaLwKNTdef15Y4zd XRWhfU0bg3bzZfVhJPMhLI CbiOYxmSC4KMKynO9hpJ39 hnJybiVIYA0sqUHnCS1BMD NiMFxlcGljWHNiMCANClxw BZGfENlpt9KdGUzcqSvkPF BuYtPtBFmCkQpmJFPBA1ey uHElSDixFCRTNBjNN8WDPY 6FBLDfnVMTCAC2ZI0bABli GWMqH1OjD8KuqcP5u2mftU mgy3QrkJYcXP2cnMGvYR8V XHBhcmQgDQp9 Disclaimer (test code = [id number]) b9rveHCnBZYqw3gyFZYzxE FuZzEwMzNcZnRuYmpcdWMx JQscyoQzMQwjn8AkM3XqUg AwMFxhbnNpXGRlZmxhbmcx YIWgZGH6ksKxDGUzKPgzCG LkMJchBn3pqXKamHsxBlGg AOPch3auscSASNddGgGiJ0 73EBBcGVpkz8zlg8GhWYQd eCNpp0R5UXLGfgtrwYz7fK miY04tv0P1QoqqB1xbPSEg PRSwG6TdDO4jCHJdZwu6GX L3MPR5QKTkQCSxV9VtFY0x VNPxdYFtCPq4t8lngJttBO OuCSO4x0kdABlyimOkAE3r cp5peOm9d8xfnxOnLSDmSI VopKEVEPJxF8TtmPscHa6c wQe6oNyaJirtSQJ7Fsx3SB 0tbg98wpb5cEvkXWBzqdfj JpZ5EVlcAIYelrjvSRy1KR uhEGAozAC0XXHnyVOfR1Kn NVWpUP5vagh8JQA7WXwpUD WjQaT0KTMdbBEoZYEixUxb IZkzi586DCG3TnUbKC8dH0 Qki6Z9wC3fxBTbXDJwuTOo CzXhBGUhwq3pdOVhRJgld4 ZiIKW1uaY8fXEpdSJwBSZp EM68Ojfpv9EkCisla9UoQ5 5qaPC8POlhs6ibBC5qBmV7 zbSzYPsaf0kxeI2iMuM8FJ moBA0jXK3uARPasW6rzkgg XHBnYnJkcmhlYWRccGdicm QuGw7rkBcfJXL8HSwuY0ur mF7dKjU0TBrmV5ylvH6qWL v8ZMadsUB4UYSfxN7hEW4d nzowb7phQOkjIGihKPGnnp Z8hdE9MPZvaJGeR3AenW1y TXBePW5rddchd8kvVPG4DA pbHUImFMW4BuEtEVIwq0Xb btc1YgGjx6FxmTGyOEbsK1 6jz932FPWzuiLgD2camALz jdaxeXWtoeuxOMtqjpK4QY GbaiKcr8IlOOReEPF1LVsr AOpiuHCjFPWtpRgch3avB3 RscGFyXHBsYWluXGYxXGZz MjBcbGFuZzEwMzNcaGljaF hpVRtjCwOvCGHoIRifR6kz UoIbC7GxKABmDiYxaKSkX8 ggVGhpcyByZXBvcnQgbWF5 EQwgP5g9LQLxitQumUh2dd VrHpKkZMIzUJO2SVnqhPWj NXUgy5KtriwkqZNaMi0weK BgMFKjyP3pRWNmGXIvKAsh VK9alHk6JRNEbUOtmTAtUr YDTAPiOX03bwZcRNOHnsla c5V3WYhvPHEdb2XwmICeD7 igv3OdZVChe28uIT5iq0M1 o1zmEGS8LC3rh4WuXRLpiZ PxoHAeNTHfr3Muqrsmp4Lu UDBqftNjd1EeFWDkiiMyvS PqLNQcdqGjdx4zjiHnFUMp COLoT9WcuqlugCludmXsYX Kpmm0oksFxJXU1ZGYBYUYa IDVdt1XgbO3ezORUBNQ9vD Ikrh2fjoPSmVMbJQJcmd18 MRAxPN5wK6siWPNaRACqhn HwhKYgm5GgQBVioSP9zKDh RK8DRwKNm94mLMOdKGPJkk QaYYEuzGqubIP3oxS2sY1s IChGREEpLlx+IFRoZSBGRE OoFD5sibVpl5WtxyGdgBki LTUifHRcw0QqdEKbd1LckQ jfu8GykSTbjSHqQA8eJAAz clxwYXIgVVRNQiBMYWJvcm W3j6ThVDZlUHDhWIK1oVhh kmi7UPPrrT1wGRFzK1govl gxQFvfFODdf6JkhC1bqWEG bKIaa0EroZNnkJFSlOFhWL 6bmqUhLOoFNWtOLNX4irSe KYJuw4BiWFioP7ogD71omX awdAq1eJL4LKE9kS0qCds+ IFxwYXJccGFyIEFwcHJvcH QyIDAfuOwfrcLxH2McndWm wW2sxJOsloDcUF9oQA5eP9 I6rOByRWRbsnVwx7atONkk dmUgYmVlbiByZXZpZXdlZC Kwh5ZsNYxhMQG0ZSjhvdAp bmNsdWRpbmcgSCZFLCBTcG HajSYjPTI8APikfpCvsjFg BU7xqS5maPjmtC2ebQNcaW K7leuoAJDtDPMqaHhlDAEc HL2ddKzevW0uEiNaUlFaFH bsJL7qNEOvQ9qmxEUbSKKs NWKyC4dsIpCzkJ0wvDluHE xjZjJcZnMyMFxwYXJccGFy XHBsYWluXGYxXGZzMjBcbG FuZzEwMzNcaGljaFxmMVxk PxOjBGZzRKaeG2zqKfAaP4 RuKGGwYsMneRGkY2vqNShb TNU3ZTEoXS9zwHYtUV04jY Yrb7mbZEbkeVmdpy0mZ44p iRYgMKckbJlkWGMrq66jc7 RoQEAwvcNahu6sOEGdzkL2 oB8qEUFtmGgxNILreNFdAO Hud6BaMOhrgRNldfDyYTbx FGRcXMMzcLWrviC3goNnwi DbqkFtFAGwzGecNNXen5Nc XHFnWTtal6Wegh3ctTQdYT FqgqAUsHeflRPrrI6cT2Pl XDVpRYOxsh3nHMCypV4uIA hxl3KdeeehRDJnQWTsQILc twYvkg0dFHRaePMRSD1JNL nvuWXvj7NulbMgH8gBIZU7 NUQwNjYwMjgxKSBleGNlcH KnZUHvbv61AIFnrM3ctIkm CPWxuX8lgU5dxEimpH5pIu IpSmFeHWamGD7oAWNpZ0bc cIEsPEEqUUQpK9dhYlNvvC 9jaFxmMVxjZjJcZnMyMFxw YXJ9fQ== Embedded Images (test code = [id number]) [facility] [id number] 19:23:05* Test Item Value Reference Range Interpretation Comme nts Case Report (test code = [id number]) Surgical Pathology ?Case: [id number] ? Authorizing Provider: ?Dominic Keita MD ? [...] HPylori ? Final Diagnosis (test code = [id number]) l0eplFGuXTDwn3ecCAJlmH FuZzEwMzNcZnRuYmpcdWMx NVcfhhPjFItssFqoINK7XP WfQL6kpYqucOd3mNcaORVt bdK3aBUgSTirn1txRXX5g0 rogkezJRXoCNmcKo2xsEMe uAqoIwIwWTLnTGb1pE99KJ OgrA0srZMkQPy2HHNcyUOa drAaWzKmLEXmuOSovFZ6VF AaBI3ubwbbCSqwKBnoKFYt eyX8OCUivGVqK7CxSZWmKW 9gpkbhADP7LIbbZULjLBZ6 KyIdWYGac3Sufue9MtXezL FyZFxwbGFpblxmczIwXHBh inMTBlHTUP8MXGGUPIWGS9 bNWBCZKL0OAIUOYymxgURr KCVgKTHlTXLSAO7OETOmJ1 fXMjVsKN6MYQFhUNGdsQRa BRLopbULAcHGIT8COX1LAD wgQklPUFNZOlxwYXIgICAg KVEsKMcAZ5UYGIJpQVSMG5 PUWIjXRIadNt4fFSLWUZ0U G6aMI5SCAEFUHX8NPFgrZH OtOTQoANGiKZ7JKOovALMQ QL2LZBJOVGHWWRoRSFPUTQ LQRNkVGWENU5NPBBfCEYIn rqeaXEDqYj8dU3RWRJMXCK wgQklPUFNZOlxwYXIgICAg AFEsKNVQN5WGJuXXNM4JU9 2ADTZZWBQXDP7IRHZXHIbA GZ5WZZIQNIMAYQIBL2ZbbI FyICAgICAgLSBOTyBFVklE EO9MJNHQLqENBEsDUZCwBN lTRUFTRVxwYXIgICAgICAt CV5DZTexKKRJCB1CFWFAJm dBTklTTVMgSURFTlRJRklF FRBCKNEWZV6ZSo8YVGRHMi xwYXJccGFyfXtccnRmMVxz k4JgR8FbNiFrHQtifyRjLT RfSbgbucedLRIqJWU1kzVk JMSySCfdEJRpEMoySz0stJ DdlRxsAcQwGUQtk2eqjzGY RHmyYoJdU062HRKwUIfjv0 pfm4KmOSKmxUAcg4M6EGMO vpdkwMs2h5ulXtMlCvV6jU QfFEzfW7pafwUngTJtH0Pf fOIcyKi6vKguV01wc3N9Rs taS3fhCHQlSWIlC3WcDD3d FHHeEhx9ZHQ6JQZ9SRHbHS CnH1UlKQ4nYWExhZYnTDz5 f9muyZdfWQFuBBO7j1srRM pbkhV1WE7pld2lrMt6j4fe czEgRGVmYXVsdCBQYXJhZ3 QvwErkOb2yuDg3qQonWcfg ZDA6Hol3VK3hsn14tlx7iP imDKEkbjtaOdJ2TMkpJZVv cjluBMm0OQctEYCjpYO3CZ IxnLRhV7NeRDXqKO8mbne1 WMJ4DWykOSXzVeR4XCHyoO LfSDLbwOfmYEksw887KDS8 NeIoHD9pG7Jwm1A0yK6axT QiRBDxaEXpIeRgRNSaaq1x oRPvRAeeb9EkJDS2shT8rC CwnXHwNULeNK69Vlkqb1Bb BitpONM6CPCiygKod7Tcp7 omAkHunjLwJ8fbY0MpGJNq VLSqHCJwKvPtxyBcq7Djt1 YowPTglDy6a4cnPXKkVZTe eSbsl4qsUUN5QMVzX4D1xK Ean3qeMBcrCGGltCZ2qoK4 MOMhdFRiO8XrlQ1rXNLuUF 0rluc8q1lwPMS2DVerZFAw GhE7szP6DNUjpWOmOMVwnE crJRzmt611FRG7IfAqDVOm b6AzJ0JphIfrW22jiUrnC4 7pCLFqzTanbQ8pjDhmrY7y ZjBcZnMyNFxxbFxwbGFpbl xmMVxmczIwXGxhbmcxMDMz CCvbR8gfEgOpVIKfmUcmGQ hzq5IyZONsAZIyJyiqezLw XHBhciBJIGhhdmUgcGVyc2 9uYWxseSByZXZpZXdlZCBh rQjhi4QzE5coJC6nJ2VwwP MdkaUqlrTeFBccNQLpp8t8 cDTrtHpes4XbqORoVC52ds LjEZQlJJX9AUTpw9duLV74 cnhdNjLzxK69bwQkozHiRG Bqv1glY9rmpVKqa8Fji3Kw zdEbVYytj9WpBR7usRNopi knxIJ8AAHrxIDwhfLrnkA7 vUjnDIOlbC1urX9xwOhziM 1xAfSoJxXdVYssEX6lKPUf S8zbzEMfDWJdCCUrM9doVq NioH2euUkdLtylmpW7SGRu cn19 Clinical Information (test code = 1014601306) Shivani Schuler is a 47 year old female with IDA1. Gastric polyp x 6 r/o adenoma2.Duodenal Bx, r/o Celiac disease 3. Gastric Bx r/o HPylori Gross Description (test code = 1986422794) h3dztTWjGCRdmWCTCYU5GT HmGD0rkHnffEn2lMapCDMg jgA3nYNmMPnpr3nkREL9r9 zaqmDIGbptOPHhAX7wIMyz FDZvJP6oVaYmOFPiGzShTY BhcGVydzEyMjQwXHBhcGVy yBV4KREvON0jamsiQOyuMY ezAWBlyaE3THNqoHGlG6Lf SKEmYP3ykjmuGED4BVKYRj gpNv4bsWZijDesDqLuXdZq YXJzZXQwXGZuaWwgQXJpYW t0gB1RZhhjMYH9JGJDCifl SxfwiJnbu5FaiKPzALQrWE xcaWQgNTEwMDAgXFxkYiBP OkZxWdY3Aom5IBF0RlB8MO l3LOZNIAVhUsjdPZC9JhA0 IZv7IYUxRP0kPQonpKIjPG pyEjetRZzyB501GYywYOWh P0HaE7KjUWslXyZeOVsgDD XxOBWnCLrlLJEmU5RCDGDr BXZ1TbYuPVCxDNd3RHbbA6 RFATYuVCCnDhE5UEOcBuH2 AXy1UURKZl1lKZbtLaPtVB q3NGH3NUj9LmPuLNTaVlSn QHYsBCYfVMwtzTGnTZ4fxH izFZQeFG4WIVWcIBffADRt RdCcY4YSH8fYZL4pQWtroT JjaFxmczIyXHBhciANClxw ZHYaPF9GLBRcJUfcEYv2jz EqZGDsZrKmOBUcQ06zj7JL h7NfIP6HQJm7vdXblvnzjR 4vGLGpiqSwHHpQmDOrlX9e dbOPUBzxKYHwZ6NoglYrGO swXSXeof4gtGwdKZkqZzMq bGVkIHdpdGggdGhlIHBhdG nvnwRuX8K4zeZdGO4iRQTN JVMrnF5oHJSpHIEke8CqsT VckNwjC6XnhAVrJmFxs8a6 kRX8JJCroyOyTQJjuBHtKI Qcgf1sFWdnKwRkQ2T6TOOx FSZsv74ufFT0epDiRdZwqB a9cYXcGLX8BY8xjPammvYz q0g4sF8dYVFne3I6JCDvd4 M4NQKwafDgiSJwxBWgVJLy SN8cerMoCC29SDKjBNyiNR fqBBN4IOZ7PSSrsJHnt3ap uorvYp0yPRhjKY0nTEsgSH 78FTCwGTqfFZRsH2DsE7R1 XGzlIJYrMVZczQSpfN9ewm PolwZplNq2ZJIaIRN6aNIw yOmjIQEtJrmsgJV0RUMiGz FlfvVcw9XfzAd6vWKzRTps UNEasV6qsT6kBQQeKWPsss MKYaejWBZgLVfbh9RwWSgu cGljWHNhMzAgDQpcZXBpY0 4oa8THo8Skm5atpZkvm9Pg gDGqSD4cvBCqFS9Mx2huDY RgqIZcLNI6QRcwp9uiHIpw OMD4ZMDsNwFfFQFiAL0YSp LtIYnpOYv0PItfANt3WJr1 BM3PYbBbZQDiFwt8AdV2Hu QxRIw4YOgjPX1JLLD3VVJg WVBpXGfjZKO1FGKgIDp6XC IgXFxzcyAzIFxcZmwgXFxu G51xfWKzPEltAcJjPQnwjU inGYAxSUE5OK5UJVHvUqZx Q5TFT0lBZV3lZjjwlnVgPS GranHDYtilYSKwOL5HPQNs VDwrHOi6bzZsFUVtToCpCE CfP81hb5QCh8PwAR9JOQc0 wgYzukyepN1iCMBislEot1 IzMFxlcGljWHNiMzAgDQpT cCHvzM0ofdWJYRegHHTeC1 KppnTfBVbkFVUqlz0fgEis IGxhYmVsbGVkIHdpdGggdG tqJVPnnGwxnqObB3Z5yrNi TH4kVZUOBRLsxT6aCLKtRX GhMYTcFHTnqS2rNQN4i3Ju ygDaAYBGZOJktBybWC18xQ BjZWxpYWMgZGlzZWFzZSBh rmYrnpZkr24zobYsq5NuSZ 7vuJypHYvYOMgpTxNhEX2y WQJntqQnd6ZjNB0uCZHdqB SlXSBbnafuiGStQFg0gZFb KTRfBtKvxVhot9IySSAkSI pnCX03qfIbHP0dUVxySJ8c VYhcQP7mPZPiINMmEAMlQm ZxsFExUzCeuMSsCaMnJ49p MuUCrNNdd9XqD6xlCJ7rnS NbMpcqoXPvQRLpnAscu7Bf hZXtRLBii6YwgTQuSMsgXL 7kLIG6Zk9xuRXwJQUvpmD5 y5YaIBdfSDJrEdunYADaBE kjs2LbYGShtWHQj9RuBW5O XHBhciANClxzYTMwXGVwaW RRr1HkJHDDZxvyuOyaHjLp bWZaHqO1QCVooADzKHQ1NA 8ojPkoQOExSOl8ZTlsBTEk Z9HzM1MsNRzeZjDdNFrkTP KjIVFoPAcdNLPhT7TROIUn JDV6RuXiJMTcINx8FUtyE4 DSLQPmJLCfFmL7ZXB0WjA8 XUd7DJUCVe0yABnzTkLgLB FzThV6ZXm0CrAzQVQrLpVd WAOrKCWwQZzllIIvMB1nsH nfQTNdOUSaBZT2QMQthYCS i6QaJNQqVDgdSaXeFSLTPI WLVF4EKwDVIZCqUbRszULg MS0BGVOybjWpZMlzpBbqmX 9cyYBjC2zoXgRoCycolJmf TmVzdERvYzEgDQpcbHRycG FyXGxpbjBccmluMFxzYjMw UPRcsZSJr3HyGKOZKlIzIY NpbWVuIEMgaXMgcmVjZWl2 RQFvoL9uJm3feRTkbU2eoF MhEYnuBXTvl9w3nAJ4eGLw gYT8oDYnsJipNzTcMU5eyD ZnJQWEPX36iNXoagMxSXVl pN0kBVYwGVUfKTM7otfvNP UYUUD2lPApb3H2YPgtDUV6 uV9zeJyrOzZbU4A8OWVwIT Fwo19hcIL0kzApUiJrWVMy vv7qwJ9tUYtozoXahMvuia Iri8D8GAGrb4S5UOLhrnHm cWXhuSKgKDKwOzY3TANjHg E5NCSsYHRmuZSwPWMbKU2w VGhlIHNwZWNpbWVuIGlzIG ZgyPBgkkYzVABtlg78X8pp QFGjvD7hg6btLdMmLYOmJL YnwRQmfIP7GREgzD3ukL85 rbDgrtZIOC0pnKJyCY4HFH NiMFxlcGljWHNiMCANClxw TRPsEIros5CmJOesoYayRS XqGtZuFUmXkAhzHVSXS9ll iIZxPYicAKZBVPfMP5ZFHI 1HUYQykZCOCQT8YM1uUNor MIZkR9RhJ4OkhyU1p3ofjM sbf7HvwLSaWT4jdAXsTN3G XHBhcmQgDQp9 Disclaimer (test code = 9465223990) l2jgwWYtNQYcl6kcCIKukC FuZzEwMzNcZnRuYmpcdWMx QDslbrVoIVifo9EoD0EhHz AwMFxhbnNpXGRlZmxhbmcx RRAwZUI8isJmMFSxQWmxNX EjCKzaTn4ymEEcfNvnWeHc BRSzt7cqbyRPHRncEdJyL8 98JAWaLWmmw9bpo4LjVXCm rYBli7G6EMFTeznztWx8bY uqQ59kn1A7ZlaeM9fzDCEk CTBsX5RoCD5gNIFvQno3SQ J9WEZ6CHFlVYUrF1EaCG2t IQItoVDpTTr1o1aqiSfhRD QbVEK4y9ytYNbbglRcLF0x zn6zxCt0d1iawyAbGSWtKJ DjkRDRSTCeA7FaiTgyUe4f pLn1sBilFczcPOA4Pzs5BD 2ryb54vuu2uCwqLQLrohjx GeJ9MBjlIGIvciuqMTe3JV frRKSrdAP6MNIscFSfM8Wj APLeET2doau9IVW1ZHwqDV ZtPxB4QFBryJIxHIKecXup MVnhu556GRH8VdRaMO2uP6 Aor4R7fL9bkHJqXAUujIEg FxLlTVFyhl9gwRPeJMdox8 VuNOZ0tgT3rDYohFSzWKJy JF41Awlxh0MpRonwi0RaK4 0rqLH4VVmsb6djDH8uUnS3 jrBsEPfjy6zucJ6hLgB4RV fvGY5qXH8lLVCysZ1qmygi XHBnYnJkcmhlYWRccGdicm ZcGh0jvMvrYUQ2JFvgD0sq zZ1pBkI4EAitR5ylkH3jDL b1WRutgVX1XPVlcU7vOD9n vtoqc1ljNAqmLVwlYDGrdr J5xrP5EIThsCMnU1IpvY9f SYFuJP1erhtdl9yxRXD2RK zvNQZiNOK1LjDpFCWsl1Eo nlm1MoBaf9BtwQLwBVlpT9 7xf273ZGGpreElP0ohxDRh ajzyhJBdwjmmRGjrzcS0TV AbqbKor5HuETFrSTU9QBlw NElkwZDtSIXvzLyba5mnA5 RscGFyXHBsYWluXGYxXGZz MjBcbGFuZzEwMzNcaGljaF ggJOpqHyKzNYUeILmlE0sq IkMdE0PqZOTkXkYabBQsG8 ggVGhpcyByZXBvcnQgbWF5 YGgaC0g6KWKebwPhgUq8kx OlDxUmBXHwKEI3VEupaZZv VNJsd2QhbsyqzVQhJa4ocJ KoKVXrjN5hLOEqFLAhYKyr NF5ucBf2MDYFxEKdeDDcGs EDGNAmBZ80pkTjMZFSgqtb m5L5SYdtBBLos7IbzCVaR5 yrf1IwCTTuu99mFP6or3S0 j4kgWNM4HX6xe4LnEGWqqO GagAClCRMeg3Fthgaiy1Lk QTSpcpTja9ErYQFegxNecO CcIANnizEhfn2sjpEbUHZc OKJlW0KulxjvaFzkvrSsSI Xlhn0kdfQkPFC0EPKGIFFu ENEeb1KapS4fkHODQZY8bF Osyi0ngqYKlTIfMBKowj55 NJLdYW4rP8bqJILaGHRbol EzdKIpu0RlIWKmySG9qAFj HL3XAlZUt32yNTRlOKJVmq CyZTLesWoezXN2mcJ3uJ0q IChGREEpLlx+IFRoZSBGRE DuVQ7smdRjy9DnzrCmuVrk FWIzcTKzk2ZjaGVhy9SddF oex1IhwVWirIDlTP5lIGIj clxwYXIgVVRNQiBMYWJvcm F7b6PhVPScQHRnHIV4yLyr smo5NIBthT1rBXLbD5heba mqHMvyIHJme1FedF1glEUG iEBwu0AamQRohOCBcEBeUT 8mcoNbMOuJXFiITDS5gbOs JWEtn0CvKPljN5byY81lhL deuNo9qBW0YLF7uC1xRjq+ IFxwYXJccGFyIEFwcHJvcH IbSWPpzOzasaMnV5QjyeDh qR3lhIJchiIsDS5lXX2wF9 V9rRVuQCMwkmJqk8lvJTrt dmUgYmVlbiByZXZpZXdlZC Vru8HyPZkuMNE2PHjtkwTe bmNsdWRpbmcgSCZFLCBTcG ZmbCEyIMU5WJicrmKhhbDt UX1mmA7myOdwvA8zuCYkdZ O4pmjvDZJtWCPcpInaQFUu QC6hmAvooR5nEmCoFhPoRZ szNJ0kLAIwT5bgbMAuFDQo ABVjH5wfMnWcyA0zmHrgWW xjZjJcZnMyMFxwYXJccGFy XHBsYWluXGYxXGZzMjBcbG FuZzEwMzNcaGljaFxmMVxk AbWhSNWsGJywB1bxKdTxP5 DlANUvSwKsxVTlL6fkUSta AZR7AUHvVL2ukHUyJN53xZ Ybf3shHDenlGnzfg0jN89k rOXpTUxnhMlaOVHum25ki2 EnDSWngmMcmj5xBFVekpI6 uL7pJVLbwAbnVXCtkVXtRW Wah2LyAQjgsQDbstHhPZqi PWFxCLOysIYlywB8lxLbea VztpWbOHLtfVezXOYaa4Kz MYHaPFdds3Efrs2rvKLfOO MvihNEmCcgbZDuwX8rE9Fj PHPjPHXbhk9qVZEngQ1zNV xwe4FrqblbZCQhCATjBIHv qxUqxg1uXNEwvKIWWK1HLI vozYQgu9VwjfLxD5iCKZD5 NUQwNjYwMjgxKSBleGNlcH FgOTMcvh42VCDlkP1uoSkx IHJgbD6drX5deGvjbR2jRb MfUpCtWTlzDP4tSKDdX5ac rXLlTIIkMLLvQ7wjBiOliO 9jaFxmMVxjZjJcZnMyMFxw YXJ9fQ== Embedded Images (test code = [id number]) [facility]. METABOLIC PANEL ([id number])2022-11-03 17:25:32* Test Item Value Reference Range Interpretation Comme nts NA (test code = 9947612430) 139 mmol/L 135-145 K (test code = 6750084011) 4.2 mmol/L 3.5-5.0 CL (test code = 9354343455) 105 mmol/L 98-108 CO2 TOTAL (test code = 0446401021) 26 mmol/L 23-31 AGAP (test code = 3287071066) 8 2-16 BUN (test code = 4314572045) 9 mg/dL 7-23 GLUCOSE (test code = 9829732578) 93 mg/dL 70-110 CREATININE (test code = 8369905142) 0.60 mg/dL 0.50-1.04 TOTAL BILI (test code = 6490229137) 0.2 mg/dL 0.1-1.1 CALCIUM (test code = 8419109711) 9.2 mg/dL 8.6-10.6 T PROTEIN (test code = 4911561678) 7.0 g/dL 6.3-8.2 ALBUMIN (test code = 4119339589) 4.2 g/dL 3.5-5.0 ALK PHOS (test code = 0056770418) 118 U/L 34-122 ALTv (test code = 1742-6) 34 U/L 5-35 AST(SGOT) (test code = 1421307360) 34 U/L 13-40 eGFR (test code = 1717800446) 108.1 mL/min/1.73m2 ZAINAB (test code = ZAINAB) [...] or urine or abnormalities in imaging tests). [facility] ([id number])2022-11-03 17:25:32* Test Item Value Reference Range Interpretation Comme nts NA (test code = 0342928653) 139 mmol/L 135-145 K (test code = 3949634299) 4.2 mmol/L 3.5-5.0 CL (test code = 6234299584) 105 mmol/L 98-108 CO2 TOTAL (test code = 8592441926) 26 mmol/L 23-31 AGAP (test code = 3435341571) 8 2-16 BUN (test code = 3592929108) 9 mg/dL 7-23 GLUCOSE (test code = 5690269210) 93 mg/dL 70-110 CREATININE (test code = 8944255864) 0.60 mg/dL 0.50-1.04 TOTAL BILI (test code = 9365639512) 0.2 mg/dL 0.1-1.1 CALCIUM (test code = 4609781952) 9.2 mg/dL 8.6-10.6 T PROTEIN (test code = 9903190317) 7.0 g/dL 6.3-8.2 ALBUMIN (test code = 0485570818) 4.2 g/dL 3.5-5.0 ALK PHOS (test code = 4871922695) 118 U/L 34-122 ALTv (test code = 1742-6) 34 U/L 5-35 AST(SGOT) (test code = 2418811830) 34 U/L 13-40 eGFR (test code = 8667820236) 108.1 mL/min/1.73m2 ZAINAB (test code = ZAINAB) [...] or urine or abnormalities in imaging tests). [facility]. METABOLIC PANEL ([id number])2022-11-03 17:25:32* Test Item Value Reference Range Interpretation Comme nts NA (test code = 2597616273) 139 mmol/L 135-145 K (test code = 4979819349) 4.2 mmol/L 3.5-5.0 CL (test code = 3192410985) 105 mmol/L 98-108 CO2 TOTAL (test code = 9838416476) 26 mmol/L 23-31 AGAP (test code = 4439656670) 8 2-16 BUN (test code = 5933724197) 9 mg/dL 7-23 GLUCOSE (test code = 5219401853) 93 mg/dL 70-110 CREATININE (test code = 8771297085) 0.60 mg/dL 0.50-1.04 TOTAL BILI (test code = 4581767605) 0.2 mg/dL 0.1-1.1 CALCIUM (test code = 3542766640) 9.2 mg/dL 8.6-10.6 T PROTEIN (test code = 6275616843) 7.0 g/dL 6.3-8.2 ALBUMIN (test code = 1076922413) 4.2 g/dL 3.5-5.0 ALK PHOS (test code = 1881265307) 118 U/L 34-122 ALTv (test code = 1742-6) 34 U/L 5-35 AST(SGOT) (test code = 0157659262) 34 U/L 13-40 eGFR (test code = 3551303023) 108.1 mL/min/1.73m2 ZAINAB (test code = ZAINAB) [...] or urine or abnormalities in imaging tests). [facility]. METABOLIC PANEL ([id number])2022-11-03 17:25:32* Test Item Value Reference Range Interpretation Comme nts NA (test code = 1390177446) 139 mmol/L 135-145 K (test code = 3946184663) 4.2 mmol/L 3.5-5.0 CL (test code = 0778422351) 105 mmol/L 98-108 CO2 TOTAL (test code = 2127664598) 26 mmol/L 23-31 AGAP (test code = 3501410244) 8 2-16 BUN (test code = 7100213356) 9 mg/dL 7-23 GLUCOSE (test code = 3624807110) 93 mg/dL 70-110 CREATININE (test code = 1677948030) 0.60 mg/dL 0.50-1.04 TOTAL BILI (test code = 3410605083) 0.2 mg/dL 0.1-1.1 CALCIUM (test code = 7556863901) 9.2 mg/dL 8.6-10.6 T PROTEIN (test code = 8298035020) 7.0 g/dL 6.3-8.2 ALBUMIN (test code = 4832288897) 4.2 g/dL 3.5-5.0 ALK PHOS (test code = 6288724405) 118 U/L 34-122 ALTv (test code = 1742-6) 34 U/L 5-35 AST(SGOT) (test code = 1404366689) 34 U/L 13-40 eGFR (test code = 4349479311) 108.1 mL/min/1.73m2 ZAINAB (test code = ZAINAB) [...] or urine or abnormalities in imaging tests). [facility]. METABOLIC PANEL ([id number])2022-11-03 17:25:32* Test Item Value Reference Range Interpretation Comme nts NA (test code = 2384327503) 139 mmol/L 135-145 K (test code = 9472430248) 4.2 mmol/L 3.5-5.0 CL (test code = 9299141405) 105 mmol/L 98-108 CO2 TOTAL (test code = 3707025888) 26 mmol/L 23-31 AGAP (test code = 5250265754) 8 2-16 BUN (test code = 7812638550) 9 mg/dL 7-23 GLUCOSE (test code = 8505172308) 93 mg/dL 70-110 CREATININE (test code = 2627076410) 0.60 mg/dL 0.50-1.04 TOTAL BILI (test code = 1408301132) 0.2 mg/dL 0.1-1.1 CALCIUM (test code = 2714155571) 9.2 mg/dL 8.6-10.6 T PROTEIN (test code = 2429402148) 7.0 g/dL 6.3-8.2 ALBUMIN (test code = 2961963035) 4.2 g/dL 3.5-5.0 ALK PHOS (test code = 0322062276) 118 U/L 34-122 ALTv (test code = 1742-6) 34 U/L 5-35 AST(SGOT) (test code = 4864536540) 34 U/L 13-40 eGFR (test code = 8861123296) 108.1 mL/min/1.73m2 ZAINAB (test code = ZAINAB) [...] or urine or abnormalities in imaging tests). [facility]. METABOLIC PANEL ([id number])2022-11-03 17:25:32* Test Item Value Reference Range Interpretation Comme nts NA (test code = 5394790196) 139 mmol/L 135-145 K (test code = 8578035877) 4.2 mmol/L 3.5-5.0 CL (test code = 0166075138) 105 mmol/L 98-108 CO2 TOTAL (test code = 2942872663) 26 mmol/L 23-31 AGAP (test code = 1599110366) 8 2-16 BUN (test code = 5971769181) 9 mg/dL 7-23 GLUCOSE (test code = 7334038712) 93 mg/dL 70-110 CREATININE (test code = 3642613744) 0.60 mg/dL 0.50-1.04 TOTAL BILI (test code = 4662762769) 0.2 mg/dL 0.1-1.1 CALCIUM (test code = 5815059313) 9.2 mg/dL 8.6-10.6 T PROTEIN (test code = 9059609883) 7.0 g/dL 6.3-8.2 ALBUMIN (test code = 0734251495) 4.2 g/dL 3.5-5.0 ALK PHOS (test code = 0246691623) 118 U/L 34-122 ALTv (test code = 1742-6) 34 U/L 5-35 AST(SGOT) (test code = 2355403288) 34 U/L 13-40 eGFR (test code = 2852825962) 108.1 mL/min/1.73m2 ZAINAB (test code = ZAINAB) [...] or urine or abnormalities in imaging tests). [facility]. METABOLIC PANEL ([id number])2022-11-03 17:25:32* Test Item Value Reference Range Interpretation Comme nts NA (test code = 1274411759) 139 mmol/L 135-145 K (test code = 4009431897) 4.2 mmol/L 3.5-5.0 CL (test code = 3321731138) 105 mmol/L 98-108 CO2 TOTAL (test code = 7667906027) 26 mmol/L 23-31 AGAP (test code = 7964244854) 8 2-16 BUN (test code = 5926251213) 9 mg/dL 7-23 GLUCOSE (test code = 7794690224) 93 mg/dL 70-110 CREATININE (test code = 3231807205) 0.60 mg/dL 0.50-1.04 TOTAL BILI (test code = 7644414494) 0.2 mg/dL 0.1-1.1 CALCIUM (test code = 4013179911) 9.2 mg/dL 8.6-10.6 T PROTEIN (test code = 3370288504) 7.0 g/dL 6.3-8.2 ALBUMIN (test code = 6194474120) 4.2 g/dL 3.5-5.0 ALK PHOS (test code = 6016799508) 118 U/L 34-122 ALTv (test code = 1742-6) 34 U/L 5-35 AST(SGOT) (test code = 8936490132) 34 U/L 13-40 eGFR (test code = 3645649774) 108.1 mL/min/1.73m2 ZAINAB (test code = ZAINAB) [...] or urine or abnormalities in imaging tests). [facility]. METABOLIC PANEL ([id number])2022-11-03 17:25:32* Test Item Value Reference Range Interpretation Comme nts NA (test code = 6114332742) 139 mmol/L 135-145 K (test code = 2967757790) 4.2 mmol/L 3.5-5.0 CL (test code = 8227248426) 105 mmol/L 98-108 CO2 TOTAL (test code = 9557056429) 26 mmol/L 23-31 AGAP (test code = 8130997099) 8 2-16 BUN (test code = 6970304053) 9 mg/dL 7-23 GLUCOSE (test code = 6050707915) 93 mg/dL 70-110 CREATININE (test code = 4728053423) 0.60 mg/dL 0.50-1.04 TOTAL BILI (test code = 2490217479) 0.2 mg/dL 0.1-1.1 CALCIUM (test code = 1057010309) 9.2 mg/dL 8.6-10.6 T PROTEIN (test code = 5805571946) 7.0 g/dL 6.3-8.2 ALBUMIN (test code = 7894078910) 4.2 g/dL 3.5-5.0 ALK PHOS (test code = 5379177415) 118 U/L 34-122 ALTv (test code = 1742-6) 34 U/L 5-35 AST(SGOT) (test code = 9106904062) 34 U/L 13-40 eGFR (test code = 5680206687) 108.1 mL/min/1.73m2 ZAINAB (test code = ZAINAB) [...] or urine or abnormalities in imaging tests). [facility]. METABOLIC PANEL ([id number])2022-11-03 17:25:32* Test Item Value Reference Range Interpretation Comme nts NA (test code = 0767759493) 139 mmol/L 135-145 K (test code = 1873341962) 4.2 mmol/L 3.5-5.0 CL (test code = 7271346777) 105 mmol/L 98-108 CO2 TOTAL (test code = 2794364373) 26 mmol/L 23-31 AGAP (test code = 9906928476) 8 2-16 BUN (test code = 0739834771) 9 mg/dL 7-23 GLUCOSE (test code = 5264825220) 93 mg/dL 70-110 CREATININE (test code = 9502298449) 0.60 mg/dL 0.50-1.04 TOTAL BILI (test code = 6494958044) 0.2 mg/dL 0.1-1.1 CALCIUM (test code = 3764780271) 9.2 mg/dL 8.6-10.6 T PROTEIN (test code = 7625685691) 7.0 g/dL 6.3-8.2 ALBUMIN (test code = 9457973224) 4.2 g/dL 3.5-5.0 ALK PHOS (test code = 4893348886) 118 U/L 34-122 ALTv (test code = 1742-6) 34 U/L 5-35 AST(SGOT) (test code = 9809636213) 34 U/L 13-40 eGFR (test code = 83301-3) 108.1 mL/min/1.73m2 ZAINAB (test code = ZAINAB) [...] or urine or abnormalities in imaging tests). [facility]. METABOLIC PANEL ([id number])2022-11-03 17:25:32* Test Item Value Reference Range Interpretation Comme nts NA (test code = 9188758878) 139 mmol/L 135-145 K (test code = 3123215739) 4.2 mmol/L 3.5-5.0 CL (test code = 0774059018) 105 mmol/L 98-108 CO2 TOTAL (test code = 4396290762) 26 mmol/L 23-31 AGAP (test code = 7815336985) 8 2-16 BUN (test code = 3512060454) 9 mg/dL 7-23 GLUCOSE (test code = 5748032690) 93 mg/dL 70-110 CREATININE (test code = 4489372544) 0.60 mg/dL 0.50-1.04 TOTAL BILI (test code = 2093168473) 0.2 mg/dL 0.1-1.1 CALCIUM (test code = 0499156205) 9.2 mg/dL 8.6-10.6 T PROTEIN (test code = 4488702117) 7.0 g/dL 6.3-8.2 ALBUMIN (test code = 1845351261) 4.2 g/dL 3.5-5.0 ALK PHOS (test code = 1112428863) 118 U/L 34-122 ALTv (test code = 1742-6) 34 U/L 5-35 AST(SGOT) (test code = 2047245733) 34 U/L 13-40 eGFR (test code = 17711-3) 108.1 mL/min/1.73m2 ZAINAB (test code = ZAINAB) [...] or urine or abnormalities in imaging tests). [facility]. METABOLIC PANEL ([id number])2022-11-03 17:25:32* Test Item Value Reference Range Interpretation Comme nts NA (test code = 2596764408) 139 mmol/L 135-145 K (test code = 0271150219) 4.2 mmol/L 3.5-5.0 CL (test code = 8735343961) 105 mmol/L 98-108 CO2 TOTAL (test code = 7538571243) 26 mmol/L 23-31 AGAP (test code = 9967829821) 8 2-16 BUN (test code = 9671997133) 9 mg/dL 7-23 GLUCOSE (test code = 2633926010) 93 mg/dL 70-110 CREATININE (test code = 7898728003) 0.60 mg/dL 0.50-1.04 TOTAL BILI (test code = 0803463232) 0.2 mg/dL 0.1-1.1 CALCIUM (test code = 6870256671) 9.2 mg/dL 8.6-10.6 T PROTEIN (test code = 9623676973) 7.0 g/dL 6.3-8.2 ALBUMIN (test code = 1840707389) 4.2 g/dL 3.5-5.0 ALK PHOS (test code = 5164952695) 118 U/L 34-122 ALTv (test code = 1742-6) 34 U/L 5-35 AST(SGOT) (test code = 3318753718) 34 U/L 13-40 eGFR (test code = 84775-6) 108.1 mL/min/1.73m2 ZAINAB (test code = ZAINAB) [...] or urine or abnormalities in imaging tests). [facility]. METABOLIC PANEL ([id number])2022-11-03 17:25:32* Test Item Value Reference Range Interpretation Comme nts NA (test code = 5101287242) 139 mmol/L 135-145 K (test code = 4182064773) 4.2 mmol/L 3.5-5.0 CL (test code = 6589837345) 105 mmol/L 98-108 CO2 TOTAL (test code = 0008924997) 26 mmol/L 23-31 AGAP (test code = 3523949656) 8 2-16 BUN (test code = 6448138889) 9 mg/dL 7-23 GLUCOSE (test code = 7864566928) 93 mg/dL 70-110 CREATININE (test code = 6945300206) 0.60 mg/dL 0.50-1.04 TOTAL BILI (test code = 9131947205) 0.2 mg/dL 0.1-1.1 CALCIUM (test code = 5076078349) 9.2 mg/dL 8.6-10.6 T PROTEIN (test code = 8863523851) 7.0 g/dL 6.3-8.2 ALBUMIN (test code = 2419181057) 4.2 g/dL 3.5-5.0 ALK PHOS (test code = 9026293939) 118 U/L 34-122 ALTv (test code = 1742-6) 34 U/L 5-35 AST(SGOT) (test code = 5503894625) 34 U/L 13-40 eGFR (test code = 32089-3) 108.1 mL/min/1.73m2 ZAINAB (test code = ZAINAB) [...] or urine or abnormalities in imaging tests). [facility]. METABOLIC PANEL ([id number])2022-11-03 17:25:32* Test Item Value Reference Range Interpretation Comme nts NA (test code = 0699760604) 139 mmol/L 135-145 K (test code = 3382526702) 4.2 mmol/L 3.5-5.0 CL (test code = 6754871372) 105 mmol/L 98-108 CO2 TOTAL (test code = 4885928230) 26 mmol/L 23-31 AGAP (test code = 7915433543) 8 2-16 BUN (test code = 9986286543) 9 mg/dL 7-23 GLUCOSE (test code = 9111364188) 93 mg/dL 70-110 CREATININE (test code = 6680796197) 0.60 mg/dL 0.50-1.04 TOTAL BILI (test code = 2100105743) 0.2 mg/dL 0.1-1.1 CALCIUM (test code = 0741213878) 9.2 mg/dL 8.6-10.6 T PROTEIN (test code = 0449576298) 7.0 g/dL 6.3-8.2 ALBUMIN (test code = 4621329080) 4.2 g/dL 3.5-5.0 ALK PHOS (test code = 5282525552) 118 U/L 34-122 ALTv (test code = 1742-6) 34 U/L 5-35 AST(SGOT) (test code = 6279980589) 34 U/L 13-40 eGFR (test code = 25410-2) 108.1 mL/min/1.73m2 ZAINAB (test code = ZAINAB) [...] or urine or abnormalities in imaging tests). [facility]. METABOLIC PANEL ([id number])2022-11-03 17:25:32* Test Item Value Reference Range Interpretation Comme nts NA (test code = 1555605131) 139 mmol/L 135-145 K (test code = 8535076454) 4.2 mmol/L 3.5-5.0 CL (test code = 1866747692) 105 mmol/L 98-108 CO2 TOTAL (test code = 6854075764) 26 mmol/L 23-31 AGAP (test code = 9661131074) 8 2-16 BUN (test code = 8098261202) 9 mg/dL 7-23 GLUCOSE (test code = 6355445005) 93 mg/dL 70-110 CREATININE (test code = 8875404914) 0.60 mg/dL 0.50-1.04 TOTAL BILI (test code = 2847185523) 0.2 mg/dL 0.1-1.1 CALCIUM (test code = 6761645232) 9.2 mg/dL 8.6-10.6 T PROTEIN (test code = 4441039520) 7.0 g/dL 6.3-8.2 ALBUMIN (test code = 4983338523) 4.2 g/dL 3.5-5.0 ALK PHOS (test code = 1191572699) 118 U/L 34-122 ALTv (test code = 1742-6) 34 U/L 5-35 AST(SGOT) (test code = 8860882924) 34 U/L 13-40 eGFR (test code = 43552-4) 108.1 mL/min/1.73m2 ZAINAB (test code = ZAINAB) [...] or urine or abnormalities in imaging tests). [facility]. METABOLIC PANEL ([id number])2022-11-03 17:25:32* Test Item Value Reference Range Interpretation Comme nts NA (test code = 1145594622) 139 mmol/L 135-145 K (test code = 7500711542) 4.2 mmol/L 3.5-5.0 CL (test code = 6112661335) 105 mmol/L 98-108 CO2 TOTAL (test code = 7317448093) 26 mmol/L 23-31 AGAP (test code = 0100632445) 8 2-16 BUN (test code = 6618888562) 9 mg/dL 7-23 GLUCOSE (test code = 5571566425) 93 mg/dL 70-110 CREATININE (test code = 5612128940) 0.60 mg/dL 0.50-1.04 TOTAL BILI (test code = 0779888895) 0.2 mg/dL 0.1-1.1 CALCIUM (test code = 5293370664) 9.2 mg/dL 8.6-10.6 T PROTEIN (test code = 6934990837) 7.0 g/dL 6.3-8.2 ALBUMIN (test code = 1759555598) 4.2 g/dL 3.5-5.0 ALK PHOS (test code = 2308348469) 118 U/L 34-122 ALTv (test code = 1742-6) 34 U/L 5-35 AST(SGOT) (test code = 2740127850) 34 U/L 13-40 eGFR (test code = 48786-2) 108.1 mL/min/1.73m2 ZAINAB (test code = ZAINAB) [...] or urine or abnormalities in imaging tests). [facility]. METABOLIC PANEL ([id number])2022-11-03 17:25:32* Test Item Value Reference Range Interpretation Comme nts NA (test code = 6556973918) 139 mmol/L 135-145 K (test code = 4615361275) 4.2 mmol/L 3.5-5.0 CL (test code = 2132410132) 105 mmol/L 98-108 CO2 TOTAL (test code = 2726709120) 26 mmol/L 23-31 AGAP (test code = 0452998801) 8 2-16 BUN (test code = 7392779427) 9 mg/dL 7-23 GLUCOSE (test code = 0706862387) 93 mg/dL 70-110 CREATININE (test code = 6549168966) 0.60 mg/dL 0.50-1.04 TOTAL BILI (test code = 7675750882) 0.2 mg/dL 0.1-1.1 CALCIUM (test code = 1774476924) 9.2 mg/dL 8.6-10.6 T PROTEIN (test code = 6954071718) 7.0 g/dL 6.3-8.2 ALBUMIN (test code = 5996650126) 4.2 g/dL 3.5-5.0 ALK PHOS (test code = 2620998405) 118 U/L 34-122 ALTv (test code = 1742-6) 34 U/L 5-35 AST(SGOT) (test code = 5256870963) 34 U/L 13-40 eGFR (test code = 17143-7) 108.1 mL/min/1.73m2 ZAINAB (test code = ZAINAB) [...] or urine or abnormalities in imaging tests). [facility]. METABOLIC PANEL ([id number])2022-11-03 17:25:32* Test Item Value Reference Range Interpretation Comme nts NA (test code = 7682785539) 139 mmol/L 135-145 K (test code = 5155597124) 4.2 mmol/L 3.5-5.0 CL (test code = 3230810920) 105 mmol/L 98-108 CO2 TOTAL (test code = 5636794186) 26 mmol/L 23-31 AGAP (test code = 5255426836) 8 2-16 BUN (test code = 0399063307) 9 mg/dL 7-23 GLUCOSE (test code = 8497162558) 93 mg/dL 70-110 CREATININE (test code = 3497181139) 0.60 mg/dL 0.50-1.04 TOTAL BILI (test code = 8661880363) 0.2 mg/dL 0.1-1.1 CALCIUM (test code = 1706241762) 9.2 mg/dL 8.6-10.6 T PROTEIN (test code = 1564995840) 7.0 g/dL 6.3-8.2 ALBUMIN (test code = 5824467244) 4.2 g/dL 3.5-5.0 ALK PHOS (test code = 7492442170) 118 U/L 34-122 ALTv (test code = 1742-6) 34 U/L 5-35 AST(SGOT) (test code = 8884541479) 34 U/L 13-40 eGFR (test code = 87911-9) 108.1 mL/min/1.73m2 ZAINAB (test code = ZAINAB) [...] or urine or abnormalities in imaging tests). [facility]. METABOLIC PANEL ([id number])2022-11-03 17:25:32* Test Item Value Reference Range Interpretation Comme nts NA (test code = 4590383891) 139 mmol/L 135-145 K (test code = 8369313614) 4.2 mmol/L 3.5-5.0 CL (test code = 6252532939) 105 mmol/L 98-108 CO2 TOTAL (test code = 2622428156) 26 mmol/L 23-31 AGAP (test code = 9180816106) 8 2-16 BUN (test code = 4981547745) 9 mg/dL 7-23 GLUCOSE (test code = 0528905563) 93 mg/dL 70-110 CREATININE (test code = 2695303514) 0.60 mg/dL 0.50-1.04 TOTAL BILI (test code = 4168276780) 0.2 mg/dL 0.1-1.1 CALCIUM (test code = 1429091004) 9.2 mg/dL 8.6-10.6 T PROTEIN (test code = 8566635777) 7.0 g/dL 6.3-8.2 ALBUMIN (test code = 1527386321) 4.2 g/dL 3.5-5.0 ALK PHOS (test code = 8141699022) 118 U/L 34-122 ALTv (test code = 1742-6) 34 U/L 5-35 AST(SGOT) (test code = 5703496368) 34 U/L 13-40 eGFR (test code = 60627-0) 108.1 mL/min/1.73m2 ZAINAB (test code = ZAINAB) [...] or urine or abnormalities in imaging tests). [facility] acute hospital WITH [id number] 17:18:52* Test Item Value Reference Range Interpretation Comme nts WBC (test code = 6690-2) 7.41 See_Comment [[email or web address]] The system which generated this result transmitted reference range: 4.30 - 11.10 10*3/?L. The reference range was not used to interpret this result as normal/abnormal. RBC (test code = 789-8) 4.20 See_Comment [[employer]] The system which generated this result transmitted [...] g/dL 31.6-35.1 L RDW-SD (test code = 82725-5) 46.2 fL 39.0-49.9 RDW-CV (test code = 788-0) 17.9 % 12.0-15.5 H PLT (test code = 777-3) 304 See_Comment [[employer]] The system which generated this result transmitted reference range: 166 - 358 10*3/?L. The reference range was not used to interpret this result as normal/abnormal. MPV (test code = 96865-6) 11.0 fL 9.5-12.9 NRBC/100 WBC (test code = 8136287560) 0.0 See_Comment [[employer]] The system which generated this result transmitted reference range: 0.0 - 10.0 /100 WBCs. The reference range was not used to interpret this result as normal/abnormal. NRBC x10^3 (test code = 4065366460) See_Comment [Automated [employer]] The system which generated this result transmitted reference range: 10*3/?L. The reference range was not used to interpret this result as normal/abnormal. GRAN MAT (NEUT) % (test code = 770-8) 68.6 % IMM GRAN % (test code = 5192508840) 0.70 % LYMPH % (test code = 736-9) 19.8 % MONO % (test code = 5905-5) 5.3 % EOS % (test code = 713-8) 5.1 % BASO % (test code = 706-2) 0.5 % GRAN MAT x10^3(ANC) (test code = 0414477254) 5.08 10*3/uL 1.88-7.09 IMM GRAN x10^3 (test code = 2939556696) 0.05 10*3/uL 0.00-0.06 LYMPH x10^3 (test code = 731-0) 1.47 10*3/uL 1.32-3.29 MONO x10^3 (test code = 742-7) 0.39 10*3/uL 0.33-0.92 EOS x10^3 (test code = 711-2) 0.38 10*3/uL 0.03-0.39 BASO x10^3 (test code = 704-7) 0.04 10*3/uL 0.01-0.07 Lab Interpretation (test code = 00061-7) Abnormal General acute hospital WITH [id number] 17:18:52* Test Item Value Reference Range Interpretation Comme nts WBC (test code = 6690-2) 7.41 See_Comment [Automated [employer]] The system which generated this result transmitted reference range: 4.30 - 11.10 10*3/?L. The reference range was not used to interpret this result as normal/abnormal. RBC (test code = 789-8) 4.20 See_Comment [[employer]] The system which generated this result [...] g/dL 31.6-35.1 L RDW-SD (test code = 96916-4) 46.2 fL 39.0-49.9 RDW-CV (test code = 788-0) 17.9 % 12.0-15.5 H PLT (test code = 777-3) 304 See_Comment [[employer]] The system which generated this result transmitted reference range: 166 - 358 10*3/?L. The reference range was not used to interpret this result as normal/abnormal. MPV (test code = 15479-3) 11.0 fL 9.5-12.9 NRBC/100 WBC (test code = 4886522939) 0.0 See_Comment [[employer]] The system which generated this result transmitted reference range: 0.0 - 10.0 /100 WBCs. The reference range was not used to interpret this result as normal/abnormal. NRBC x10^3 (test code = 1344911985) See_Comment [[employer]] The system which generated this result transmitted reference range: 10*3/?L. The reference range was not used to interpret this result as normal/abnormal. GRAN MAT (NEUT) % (test code = 770-8) 68.6 % IMM GRAN % (test code = 2584412209) 0.70 % LYMPH % (test code = 736-9) 19.8 % MONO % (test code = 5905-5) 5.3 % EOS % (test code = 713-8) 5.1 % BASO % (test code = 706-2) 0.5 % GRAN MAT x10^3(ANC) (test code = 3851316504) 5.08 10*3/uL 1.88-7.09 IMM GRAN x10^3 (test code = 4507411067) 0.05 10*3/uL 0.00-0.06 LYMPH x10^3 (test code = 731-0) 1.47 10*3/uL 1.32-3.29 MONO x10^3 (test code = 742-7) 0.39 10*3/uL 0.33-0.92 EOS x10^3 (test code = 711-2) 0.38 10*3/uL 0.03-0.39 BASO x10^3 (test code = 704-7) 0.04 10*3/uL 0.01-0.07 Lab Interpretation (test code = 00566-3) Abnormal General acute hospital WITH [id number] 17:18:52* Test Item Value Reference Range Interpretation Comme nts WBC (test code = 6690-2) 7.41 See_Comment [[employer]] The system which generated this result transmitted reference range: 4.30 - 11.10 10*3/?L. The reference range was not used to interpret this result as normal/abnormal. RBC (test code = 789-8) 4.20 See_Comment [[employer]] The system which generated this result [...] g/dL 31.6-35.1 L RDW-SD (test code = 96248-9) 46.2 fL 39.0-49.9 RDW-CV (test code = 788-0) 17.9 % 12.0-15.5 H PLT (test code = 777-3) 304 See_Comment [Automated mess[employer]] The system which generated this result transmitted reference range: 166 - 358 10*3/?L. The reference range was not used to interpret this result as normal/abnormal. MPV (test code = 79963-9) 11.0 fL 9.5-12.9 NRBC/100 WBC (test code = 5676463796) 0.0 See_Comment [[employer]] The system which generated this result transmitted reference range: 0.0 - 10.0 /100 WBCs. The reference range was not used to interpret this result as normal/abnormal. NRBC x10^3 (test code = 7443359810) See_Comment [[employer]] The system which generated this result transmitted reference range: 10*3/?L. The reference range was not used to interpret this result as normal/abnormal. GRAN MAT (NEUT) % (test code = 770-8) 68.6 % IMM GRAN % (test code = 0828090777) 0.70 % LYMPH % (test code = 736-9) 19.8 % MONO % (test code = 5905-5) 5.3 % EOS % (test code = 713-8) 5.1 % BASO % (test code = 706-2) 0.5 % GRAN MAT x10^3(ANC) (test code = 6069145872) 5.08 10*3/uL 1.88-7.09 IMM GRAN x10^3 (test code = 3558017996) 0.05 10*3/uL 0.00-0.06 LYMPH x10^3 (test code = 731-0) 1.47 10*3/uL 1.32-3.29 MONO x10^3 (test code = 742-7) 0.39 10*3/uL 0.33-0.92 EOS x10^3 (test code = 711-2) 0.38 10*3/uL 0.03-0.39 BASO x10^3 (test code = 704-7) 0.04 10*3/uL 0.01-0.07 Lab Interpretation (test code = 58967-7) Abnormal General acute hospital WITH [id number] 17:18:52* Test Item Value Reference Range Interpretation [...] g/dL 31.6-35.1 L RDW-SD (test code = 29771-2) 46.2 fL 39.0-49.9 RDW-CV (test code = 788-0) 17.9 % 12.0-15.5 H PLT (test code = 777-3) 304 See_Comment [Automated messa ge] The system which generated this result transmitted reference range: 166 - 358 10*3/?L. The reference range was not used to interpret this result as normal/abnormal. MPV (test code = 40087-5) 11.0 fL 9.5-12.9 NRBC/100 WBC (test code = 3933287631) 0.0 See_Comment [Automated i-drive ssage] The system which generated this result transmitted reference range: 0.0 - 10.0 /100 WBCs. The reference range was not used to interpret this result as normal/abnormal. NRBC x10^3 (test code = 5321101646) See_Comment [Automated messa ge] The system which generated this result transmitted reference range: 10*3/?L. The reference range was not used to interpret this result as normal/abnormal. GRAN MAT (NEUT) % (test code = 770-8) 68.6 % IMM GRAN % (test code = 0072311954) 0.70 % LYMPH % (test code = 736-9) 19.8 % MONO % (test code = 5905-5) 5.3 % EOS % (test code = 713-8) 5.1 % BASO % (test code = 706-2) 0.5 % GRAN MAT x10^3(ANC) (test code = 9601080267) 5.08 10*3/uL 1.88-7.09 IMM GRAN x10^3 (test code = 0779318576) 0.05 10*3/uL 0.00-0.06 LYMPH x10^3 (test code = 731-0) 1.47 10*3/uL 1.32-3.29 MONO x10^3 (test code = 742-7) 0.39 10*3/uL 0.33-0.92 EOS x10^3 (test code = 711-2) 0.38 10*3/uL 0.03-0.39 BASO x10^3 (test code = 704-7) 0.04 10*3/uL 0.01-0.07 Lab Interpretation (test code = 25415-8) Abnormal General acute hospital WITH [id number] 17:18:52* Test Item Value Reference Range Interpretation [...] g/dL 31.6-35.1 L RDW-SD (test code = 37597-0) 46.2 fL 39.0-49.9 RDW-CV (test code = 788-0) 17.9 % 12.0-15.5 H PLT (test code = 777-3) 304 See_Comment [Automated messa ge] The system which generated this result transmitted reference range: 166 - 358 10*3/?L. The reference range was not used to interpret this result as normal/abnormal. MPV (test code = 67928-6) 11.0 fL 9.5-12.9 NRBC/100 WBC (test code = 9777594180) 0.0 See_Comment [Automated i-drive ssage] The system which generated this result transmitted reference range: 0.0 - 10.0 /100 WBCs. The reference range was not used to interpret this result as normal/abnormal. NRBC x10^3 (test code = 0402500829) See_Comment [Automated messa ge] The system which generated this result transmitted reference range: 10*3/?L. The reference range was not used to interpret this result as normal/abnormal. GRAN MAT (NEUT) % (test code = 770-8) 68.6 % IMM GRAN % (test code = 8213402196) 0.70 % LYMPH % (test code = 736-9) 19.8 % MONO % (test code = 5905-5) 5.3 % EOS % (test code = 713-8) 5.1 % BASO % (test code = 706-2) 0.5 % GRAN MAT x10^3(ANC) (test code = 9823492195) 5.08 10*3/uL 1.88-7.09 IMM GRAN x10^3 (test code = 9539629901) 0.05 10*3/uL 0.00-0.06 LYMPH x10^3 (test code = 731-0) 1.47 10*3/uL 1.32-3.29 MONO x10^3 (test code = 742-7) 0.39 10*3/uL 0.33-0.92 EOS x10^3 (test code = 711-2) 0.38 10*3/uL 0.03-0.39 BASO x10^3 (test code = 704-7) 0.04 10*3/uL 0.01-0.07 Lab Interpretation (test code = 75845-0) Abnormal General acute hospital WITH [id number] 17:18:52* Test Item Value Reference Range Interpretation Comme nts WBC (test code = 6690-2) 7.41 See_Comment [Automated [employer]] The system which generated this result transmitted reference range: 4.30 - 11.10 10*3/?L. The reference range was not used to interpret this result as normal/abnormal. RBC (test code = 789-8) 4.20 See_Comment [Automated [employer]] The system which generated this result [...] g/dL 31.6-35.1 L RDW-SD (test code = 25772-1) 46.2 fL 39.0-49.9 RDW-CV (test code = 788-0) 17.9 % 12.0-15.5 H PLT (test code = 777-3) 304 See_Comment [Automated [employer]] The system which generated this result transmitted reference range: 166 - 358 10*3/?L. The reference range was not used to interpret this result as normal/abnormal. MPV (test code = 40791-9) 11.0 fL 9.5-12.9 NRBC/100 WBC (test code = 8554687250) 0.0 See_Comment [Automated me ssage] The system which generated this result transmitted reference range: 0.0 - 10.0 /100 WBCs. The reference range was not used to interpret this result as normal/abnormal. NRBC x10^3 (test code = 9753414303) See_Comment [Automated messa ge] The system which generated this result transmitted reference range: 10*3/?L. The reference range was not used to interpret this result as normal/abnormal. GRAN MAT (NEUT) % (test code = 770-8) 68.6 % IMM GRAN % (test code = 5856877387) 0.70 % LYMPH % (test code = 736-9) 19.8 % MONO % (test code = 5905-5) 5.3 % EOS % (test code = 713-8) 5.1 % BASO % (test code = 706-2) 0.5 % GRAN MAT x10^3(ANC) (test code = 9025594405) 5.08 10*3/uL 1.88-7.09 IMM GRAN x10^3 (test code = 8575441535) 0.05 10*3/uL 0.00-0.06 LYMPH x10^3 (test code = 731-0) 1.47 10*3/uL 1.32-3.29 MONO x10^3 (test code = 742-7) 0.39 10*3/uL 0.33-0.92 EOS x10^3 (test code = 711-2) 0.38 10*3/uL 0.03-0.39 BASO x10^3 (test code = 704-7) 0.04 10*3/uL 0.01-0.07 Lab Interpretation (test code = 03954-1) Abnormal General acute hospital WITH [id number] 17:18:52* Test Item Value Reference Range Interpretation [...] g/dL 31.6-35.1 L RDW-SD (test code = 95578-3) 46.2 fL 39.0-49.9 RDW-CV (test code = 788-0) 17.9 % 12.0-15.5 H PLT (test code = 777-3) 304 See_Comment [Automated [employer] ge] The system which generated this result transmitted reference range: 166 - 358 10*3/?L. The reference range was not used to interpret this result as normal/abnormal. MPV (test code = 74860-3) 11.0 fL 9.5-12.9 NRBC/100 WBC (test code = 0921697430) 0.0 See_Comment [Automated i-drive ssage] The system which generated this result transmitted reference range: 0.0 - 10.0 /100 WBCs. The reference range was not used to interpret this result as normal/abnormal. NRBC x10^3 (test code = 4117317082) See_Comment [Automated [employer]] The system which generated this result transmitted reference range: 10*3/?L. The reference range was not used to interpret this result as normal/abnormal. GRAN MAT (NEUT) % (test code = 770-8) 68.6 % IMM GRAN % (test code = 1905035505) 0.70 % LYMPH % (test code = 736-9) 19.8 % MONO % (test code = 5905-5) 5.3 % EOS % (test code = 713-8) 5.1 % BASO % (test code = 706-2) 0.5 % GRAN MAT x10^3(ANC) (test code = 7741795486) 5.08 10*3/uL 1.88-7.09 IMM GRAN x10^3 (test code = 8838250023) 0.05 10*3/uL 0.00-0.06 LYMPH x10^3 (test code = 731-0) 1.47 10*3/uL 1.32-3.29 MONO x10^3 (test code = 742-7) 0.39 10*3/uL 0.33-0.92 EOS x10^3 (test code = 711-2) 0.38 10*3/uL 0.03-0.39 BASO x10^3 (test code = 704-7) 0.04 10*3/uL 0.01-0.07 Lab Interpretation (test code = 26670-8) Abnormal General acute hospital WITH [id number] 17:18:52* Test Item Value Reference Range Interpretation Comme nts WBC (test code = 6690-2) 7.41 See_Comment [Automated [employer] i'mma] The system which generated this result transmitted reference range: 4.30 - 11.10 10*3/?L. The reference range was not used to interpret this result as normal/abnormal. RBC (test code = 789-8) 4.20 See_Comment [Automated [employer] i[employer]ma] The system which generated this result transmitted [...] g/dL 31.6-35.1 L RDW-SD (test code = 66267-3) 46.2 fL 39.0-49.9 RDW-CV (test code = 788-0) 17.9 % 12.0-15.5 H PLT (test code = 777-3) 304 See_Comment [Automated messa ge] The system which generated this result transmitted reference range: 166 - 358 10*3/?L. The reference range was not used to interpret this result as normal/abnormal. MPV (test code = 88350-0) 11.0 fL 9.5-12.9 NRBC/100 WBC (test code = 9043497880) 0.0 See_Comment [Automated me ssage] The system which generated this result transmitted reference range: 0.0 - 10.0 /100 WBCs. The reference range was not used to interpret this result as normal/abnormal. NRBC x10^3 (test code = 9385587596) See_Comment [Automated messa ge] The system which generated this result transmitted reference range: 10*3/?L. The reference range was not used to interpret this result as normal/abnormal. GRAN MAT (NEUT) % (test code = 770-8) 68.6 % IMM GRAN % (test code = 1479470054) 0.70 % LYMPH % (test code = 736-9) 19.8 % MONO % (test code = 5905-5) 5.3 % EOS % (test code = 713-8) 5.1 % BASO % (test code = 706-2) 0.5 % GRAN MAT x10^3(ANC) (test code = 0917233555) 5.08 10*3/uL 1.88-7.09 IMM GRAN x10^3 (test code = 9947091198) 0.05 10*3/uL 0.00-0.06 LYMPH x10^3 (test code = 731-0) 1.47 10*3/uL 1.32-3.29 MONO x10^3 (test code = 742-7) 0.39 10*3/uL 0.33-0.92 EOS x10^3 (test code = 711-2) 0.38 10*3/uL 0.03-0.39 BASO x10^3 (test code = 704-7) 0.04 10*3/uL 0.01-0.07 Lab Interpretation (test code = 98435-2) Abnormal General acute hospital WITH [id number] 17:18:52* Test Item Value Reference Range Interpretation [...] g/dL 31.6-35.1 L RDW-SD (test code = 93633-5) 46.2 fL 39.0-49.9 RDW-CV (test code = 788-0) 17.9 % 12.0-15.5 H PLT (test code = 777-3) 304 See_Comment [Automated messa ge] The system which generated this result transmitted reference range: 166 - 358 10*3/?L. The reference range was not used to interpret this result as normal/abnormal. MPV (test code = 22283-5) 11.0 fL 9.5-12.9 NRBC/100 WBC (test code = 6375742694) 0.0 See_Comment [Automated i-drive ssage] The system which generated this result transmitted reference range: 0.0 - 10.0 /100 WBCs. The reference range was not used to interpret this result as normal/abnormal. NRBC x10^3 (test code = 9220664365) See_Comment [Automated messa ge] The system which generated this result transmitted reference range: 10*3/?L. The reference range was not used to interpret this result as normal/abnormal. GRAN MAT (NEUT) % (test code = 770-8) 68.6 % IMM GRAN % (test code = 6524521900) 0.70 % LYMPH % (test code = 736-9) 19.8 % MONO % (test code = 5905-5) 5.3 % EOS % (test code = 713-8) 5.1 % BASO % (test code = 706-2) 0.5 % GRAN MAT x10^3(ANC) (test code = 3740194971) 5.08 10*3/uL 1.88-7.09 IMM GRAN x10^3 (test code = 1979726600) 0.05 10*3/uL 0.00-0.06 LYMPH x10^3 (test code = 731-0) 1.47 10*3/uL 1.32-3.29 MONO x10^3 (test code = 742-7) 0.39 10*3/uL 0.33-0.92 EOS x10^3 (test code = 711-2) 0.38 10*3/uL 0.03-0.39 BASO x10^3 (test code = 704-7) 0.04 10*3/uL 0.01-0.07 Lab Interpretation (test code = 14812-2) Abnormal General acute hospital WITH [id number] 17:18:52* Test Item Value Reference Range Interpretation Comme nts WBC (test code = 6690-2) 7.41 See_Comment [Automated [employer]] The system which generated this result [...] g/dL 31.6-35.1 L RDW-SD (test code = 45619-8) 46.2 fL 39.0-49.9 RDW-CV (test code = 788-0) 17.9 % 12.0-15.5 H PLT (test code = 777-3) 304 See_Comment [Automated [employer]] The system which generated this result transmitted reference range: 166 - 358 10*3/?L. The reference range was not used to interpret this result as normal/abnormal. MPV (test code = 84707-4) 11.0 fL 9.5-12.9 NRBC/100 WBC (test code = 2010215442) 0.0 See_Comment [Automated i-drive ssage] The system which generated this result transmitted reference range: 0.0 - 10.0 /100 WBCs. The reference range was not used to interpret this result as normal/abnormal. NRBC x10^3 (test code = 1835504551) See_Comment [Automated [employer]] The system which generated this result transmitted reference range: 10*3/?L. The reference range was not used to interpret this result as normal/abnormal. GRAN MAT (NEUT) % (test code = 770-8) 68.6 % IMM GRAN % (test code = 2364429140) 0.70 % LYMPH % (test code = 736-9) 19.8 % MONO % (test code = 5905-5) 5.3 % EOS % (test code = 713-8) 5.1 % BASO % (test code = 706-2) 0.5 % GRAN MAT x10^3(ANC) (test code = 9555855452) 5.08 10*3/uL 1.88-7.09 IMM GRAN x10^3 (test code = 7702783306) 0.05 10*3/uL 0.00-0.06 LYMPH x10^3 (test code = 731-0) 1.47 10*3/uL 1.32-3.29 MONO x10^3 (test code = 742-7) 0.39 10*3/uL 0.33-0.92 EOS x10^3 (test code = 711-2) 0.38 10*3/uL 0.03-0.39 BASO x10^3 (test code = 704-7) 0.04 10*3/uL 0.01-0.07 Lab Interpretation (test code = 79260-7) Abnormal General acute hospital WITH [id number] 17:18:52* Test Item Value Reference Range Interpretation [...] g/dL 31.6-35.1 L RDW-SD (test code = 99160-0) 46.2 fL 39.0-49.9 RDW-CV (test code = 788-0) 17.9 % 12.0-15.5 H PLT (test code = 777-3) 304 See_Comment [Automated messa ge] The system which generated this result transmitted reference range: 166 - 358 10*3/?L. The reference range was not used to interpret this result as normal/abnormal. MPV (test code = 17366-4) 11.0 fL 9.5-12.9 NRBC/100 WBC (test code = 7268959574) 0.0 See_Comment [Automated i-drive ssage] The system which generated this result transmitted reference range: 0.0 - 10.0 /100 WBCs. The reference range was not used to interpret this result as normal/abnormal. NRBC x10^3 (test code = 4494040411) See_Comment [Automated messa ge] The system which generated this result transmitted reference range: 10*3/?L. The reference range was not used to interpret this result as normal/abnormal. GRAN MAT (NEUT) % (test code = 770-8) 68.6 % IMM GRAN % (test code = 0759543028) 0.70 % LYMPH % (test code = 736-9) 19.8 % MONO % (test code = 5905-5) 5.3 % EOS % (test code = 713-8) 5.1 % BASO % (test code = 706-2) 0.5 % GRAN MAT x10^3(ANC) (test code = 7542190744) 5.08 10*3/uL 1.88-7.09 IMM GRAN x10^3 (test code = 8441230429) 0.05 10*3/uL 0.00-0.06 LYMPH x10^3 (test code = 731-0) 1.47 10*3/uL 1.32-3.29 MONO x10^3 (test code = 742-7) 0.39 10*3/uL 0.33-0.92 EOS x10^3 (test code = 711-2) 0.38 10*3/uL 0.03-0.39 BASO x10^3 (test code = 704-7) 0.04 10*3/uL 0.01-0.07 Lab Interpretation (test code = 60324-9) Abnormal General acute hospital WITH [id number] 17:18:52* Test Item Value Reference Range Interpretation [...] g/dL 31.6-35.1 L RDW-SD (test code = 16797-0) 46.2 fL 39.0-49.9 RDW-CV (test code = 788-0) 17.9 % 12.0-15.5 H PLT (test code = 777-3) 304 See_Comment [Automated messa ge] The system which generated this result transmitted reference range: 166 - 358 10*3/?L. The reference range was not used to interpret this result as normal/abnormal. MPV (test code = 32961-7) 11.0 fL 9.5-12.9 NRBC/100 WBC (test code = 4283149553) 0.0 See_Comment [Automated i-drive ssage] The system which generated this result transmitted reference range: 0.0 - 10.0 /100 WBCs. The reference range was not used to interpret this result as normal/abnormal. NRBC x10^3 (test code = 9948873488) See_Comment [Automated messa ge] The system which generated this result transmitted reference range: 10*3/?L. The reference range was not used to interpret this result as normal/abnormal. GRAN MAT (NEUT) % (test code = 770-8) 68.6 % IMM GRAN % (test code = 2684881149) 0.70 % LYMPH % (test code = 736-9) 19.8 % MONO % (test code = 5905-5) 5.3 % EOS % (test code = 713-8) 5.1 % BASO % (test code = 706-2) 0.5 % GRAN MAT x10^3(ANC) (test code = 8103517194) 5.08 10*3/uL 1.88-7.09 IMM GRAN x10^3 (test code = 2171202082) 0.05 10*3/uL 0.00-0.06 LYMPH x10^3 (test code = 731-0) 1.47 10*3/uL 1.32-3.29 MONO x10^3 (test code = 742-7) 0.39 10*3/uL 0.33-0.92 EOS x10^3 (test code = 711-2) 0.38 10*3/uL 0.03-0.39 BASO x10^3 (test code = 704-7) 0.04 10*3/uL 0.01-0.07 Lab Interpretation (test code = 40362-4) Abnormal General acute hospital WITH [id number] 17:18:52* Test Item Value Reference Range Interpretation Comme nts WBC (test code = 6690-2) 7.41 See_Comment [Automated [employer]] The system which generated this result [...] g/dL 31.6-35.1 L RDW-SD (test code = 09490-7) 46.2 fL 39.0-49.9 RDW-CV (test code = 788-0) 17.9 % 12.0-15.5 H PLT (test code = 777-3) 304 See_Comment [Automated messa ge] The system which generated this result transmitted reference range: 166 - 358 10*3/?L. The reference range was not used to interpret this result as normal/abnormal. MPV (test code = 97838-7) 11.0 fL 9.5-12.9 NRBC/100 WBC (test code = 0600404565) 0.0 See_Comment [Automated me ssage] The system which generated this result transmitted reference range: 0.0 - 10.0 /100 WBCs. The reference range was not used to interpret this result as normal/abnormal. NRBC x10^3 (test code = 7397791457) See_Comment [Automated messa ge] The system which generated this result transmitted reference range: 10*3/?L. The reference range was not used to interpret this result as normal/abnormal. GRAN MAT (NEUT) % (test code = 770-8) 68.6 % IMM GRAN % (test code = 1957655290) 0.70 % LYMPH % (test code = 736-9) 19.8 % MONO % (test code = 5905-5) 5.3 % EOS % (test code = 713-8) 5.1 % BASO % (test code = 706-2) 0.5 % GRAN MAT x10^3(ANC) (test code = 4674777517) 5.08 10*3/uL 1.88-7.09 IMM GRAN x10^3 (test code = 6743333002) 0.05 10*3/uL 0.00-0.06 LYMPH x10^3 (test code = 731-0) 1.47 10*3/uL 1.32-3.29 MONO x10^3 (test code = 742-7) 0.39 10*3/uL 0.33-0.92 EOS x10^3 (test code = 711-2) 0.38 10*3/uL 0.03-0.39 BASO x10^3 (test code = 704-7) 0.04 10*3/uL 0.01-0.07 Lab Interpretation (test code = 23111-2) Abnormal General acute hospital WITH [id number] 17:18:52* Test Item Value Reference Range Interpretation Comme nts WBC (test code = 6690-2) 7.41 See_Comment [Automated messa ge] The system which generated this result transmitted reference range: 4.30 - 11.10 10*3/?L. The reference range was not used to interpret this result as normal/abnormal. RBC (test code = 789-8) 4.20 See_Comment [Automated [employer]] The system which generated this result [...] g/dL 31.6-35.1 L RDW-SD (test code = 61392-3) 46.2 fL 39.0-49.9 RDW-CV (test code = 788-0) 17.9 % 12.0-15.5 H PLT (test code = 777-3) 304 See_Comment [Automated [employer]] The system which generated this result transmitted reference range: 166 - 358 10*3/?L. The reference range was not used to interpret this result as normal/abnormal. MPV (test code = 24135-5) 11.0 fL 9.5-12.9 NRBC/100 WBC (test code = 6571334603) 0.0 See_Comment [Automated i-drive ssage] The system which generated this result transmitted reference range: 0.0 - 10.0 /100 WBCs. The reference range was not used to interpret this result as normal/abnormal. NRBC x10^3 (test code = 2003581221) See_Comment [Automated [employer]] The system which generated this result transmitted reference range: 10*3/?L. The reference range was not used to interpret this result as normal/abnormal. GRAN MAT (NEUT) % (test code = 770-8) 68.6 % IMM GRAN % (test code = 2424462231) 0.70 % LYMPH % (test code = 736-9) 19.8 % MONO % (test code = 5905-5) 5.3 % EOS % (test code = 713-8) 5.1 % BASO % (test code = 706-2) 0.5 % GRAN MAT x10^3(ANC) (test code = 3615045119) 5.08 10*3/uL 1.88-7.09 IMM GRAN x10^3 (test code = 0730732275) 0.05 10*3/uL 0.00-0.06 LYMPH x10^3 (test code = 731-0) 1.47 10*3/uL 1.32-3.29 MONO x10^3 (test code = 742-7) 0.39 10*3/uL 0.33-0.92 EOS x10^3 (test code = 711-2) 0.38 10*3/uL 0.03-0.39 BASO x10^3 (test code = 704-7) 0.04 10*3/uL 0.01-0.07 Lab Interpretation (test code = 37010-6) Abnormal General acute hospital WITH [id number] 17:18:52* Test Item Value Reference Range Interpretation Comme nts WBC (test code = 6690-2) 7.41 See_Comment [Automated [employer] i[employer]ma] The system which generated this result transmitted reference range: 4.30 - 11.10 10*3/?L. The reference range was not used to interpret this result as normal/abnormal. RBC (test code = 789-8) 4.20 See_Comment [Automated [employer] i[employer]ma] The system which generated this result transmitted [...] g/dL 31.6-35.1 L RDW-SD (test code = 69963-2) 46.2 fL 39.0-49.9 RDW-CV (test code = 788-0) 17.9 % 12.0-15.5 H PLT (test code = 777-3) 304 See_Comment [Automated [employer]] The system which generated this result transmitted reference range: 166 - 358 10*3/?L. The reference range was not used to interpret this result as normal/abnormal. MPV (test code = 33469-9) 11.0 fL 9.5-12.9 NRBC/100 WBC (test code = 2497271893) 0.0 See_Comment [Automated i-drive ssage] The system which generated this result transmitted reference range: 0.0 - 10.0 /100 WBCs. The reference range was not used to interpret this result as normal/abnormal. NRBC x10^3 (test code = 2687091579) See_Comment [Automated [employer]] The system which generated this result transmitted reference range: 10*3/?L. The reference range was not used to interpret this result as normal/abnormal. GRAN MAT (NEUT) % (test code = 770-8) 68.6 % IMM GRAN % (test code = 7455367650) 0.70 % LYMPH % (test code = 736-9) 19.8 % MONO % (test code = 5905-5) 5.3 % EOS % (test code = 713-8) 5.1 % BASO % (test code = 706-2) 0.5 % GRAN MAT x10^3(ANC) (test code = 0319101873) 5.08 10*3/uL 1.88-7.09 IMM GRAN x10^3 (test code = 8816070381) 0.05 10*3/uL 0.00-0.06 LYMPH x10^3 (test code = 731-0) 1.47 10*3/uL 1.32-3.29 MONO x10^3 (test code = 742-7) 0.39 10*3/uL 0.33-0.92 EOS x10^3 (test code = 711-2) 0.38 10*3/uL 0.03-0.39 BASO x10^3 (test code = 704-7) 0.04 10*3/uL 0.01-0.07 Lab Interpretation (test code = 29660-8) Abnormal General acute hospital WITH [id number] 17:18:52* Test Item Value Reference Range Interpretation [...] g/dL 31.6-35.1 L RDW-SD (test code = 74092-6) 46.2 fL 39.0-49.9 RDW-CV (test code = 788-0) 17.9 % 12.0-15.5 H PLT (test code = 777-3) 304 See_Comment [Automated messa ge] The system which generated this result transmitted reference range: 166 - 358 10*3/?L. The reference range was not used to interpret this result as normal/abnormal. MPV (test code = 50731-4) 11.0 fL 9.5-12.9 NRBC/100 WBC (test code = 3628414903) 0.0 See_Comment [Automated me ssage] The system which generated this result transmitted reference range: 0.0 - 10.0 /100 WBCs. The reference range was not used to interpret this result as normal/abnormal. NRBC x10^3 (test code = 9365151420) See_Comment [Automated messa ge] The system which generated this result transmitted reference range: 10*3/?L. The reference range was not used to interpret this result as normal/abnormal. GRAN MAT (NEUT) % (test code = 770-8) 68.6 % IMM GRAN % (test code = 5591025917) 0.70 % LYMPH % (test code = 736-9) 19.8 % MONO % (test code = 5905-5) 5.3 % EOS % (test code = 713-8) 5.1 % BASO % (test code = 706-2) 0.5 % GRAN MAT x10^3(ANC) (test code = 2384382249) 5.08 10*3/uL 1.88-7.09 IMM GRAN x10^3 (test code = 3688751232) 0.05 10*3/uL 0.00-0.06 LYMPH x10^3 (test code = 731-0) 1.47 10*3/uL 1.32-3.29 MONO x10^3 (test code = 742-7) 0.39 10*3/uL 0.33-0.92 EOS x10^3 (test code = 711-2) 0.38 10*3/uL 0.03-0.39 BASO x10^3 (test code = 704-7) 0.04 10*3/uL 0.01-0.07 Lab Interpretation (test code = 55039-8) Abnormal General acute hospital WITH [id number] 17:18:52* Test Item Value Reference Range Interpretation [...] g/dL 31.6-35.1 L RDW-SD (test code = 83376-0) 46.2 fL 39.0-49.9 RDW-CV (test code = 788-0) 17.9 % 12.0-15.5 H PLT (test code = 777-3) 304 See_Comment [Automated [employer]] The system which generated this result transmitted reference range: 166 - 358 10*3/?L. The reference range was not used to interpret this result as normal/abnormal. MPV (test code = 61369-6) 11.0 fL 9.5-12.9 NRBC/100 WBC (test code = 6998703617) 0.0 See_Comment [Automated i-drive ssage] The system which generated this result transmitted reference range: 0.0 - 10.0 /100 WBCs. The reference range was not used to interpret this result as normal/abnormal. NRBC x10^3 (test code = 1804565433) See_Comment [Automated [employer]] The system which generated this result transmitted reference range: 10*3/?L. The reference range was not used to interpret this result as normal/abnormal. GRAN MAT (NEUT) % (test code = 770-8) 68.6 % IMM GRAN % (test code = 9966698372) 0.70 % LYMPH % (test code = 736-9) 19.8 % MONO % (test code = 5905-5) 5.3 % EOS % (test code = 713-8) 5.1 % BASO % (test code = 706-2) 0.5 % GRAN MAT x10^3(ANC) (test code = 8384250446) 5.08 10*3/uL 1.88-7.09 IMM GRAN x10^3 (test code = 8499069577) 0.05 10*3/uL 0.00-0.06 LYMPH x10^3 (test code = 731-0) 1.47 10*3/uL 1.32-3.29 MONO x10^3 (test code = 742-7) 0.39 10*3/uL 0.33-0.92 EOS x10^3 (test code = 711-2) 0.38 10*3/uL 0.03-0.39 BASO x10^3 (test code = 704-7) 0.04 10*3/uL 0.01-0.07 Lab Interpretation (test code = 72561-4) Abnormal General acute hospital WITH [id number] 17:18:52* Test Item Value Reference Range Interpretation [...] g/dL 31.6-35.1 L RDW-SD (test code = 73136-5) 46.2 fL 39.0-49.9 RDW-CV (test code = 788-0) 17.9 % 12.0-15.5 H PLT (test code = 777-3) 304 See_Comment [Automated messa ge] The system which generated this result transmitted reference range: 166 - 358 10*3/?L. The reference range was not used to interpret this result as normal/abnormal. MPV (test code = 83971-8) 11.0 fL 9.5-12.9 NRBC/100 WBC (test code = 6325072408) 0.0 See_Comment [Automated me ssage] The system which generated this result transmitted reference range: 0.0 - 10.0 /100 WBCs. The reference range was not used to interpret this result as normal/abnormal. NRBC x10^3 (test code = 6175857091) See_Comment [Automated messa ge] The system which generated this result transmitted reference range: 10*3/?L. The reference range was not used to interpret this result as normal/abnormal. GRAN MAT (NEUT) % (test code = 770-8) 68.6 % IMM GRAN % (test code = 7128929817) 0.70 % LYMPH % (test code = 736-9) 19.8 % MONO % (test code = 5905-5) 5.3 % EOS % (test code = 713-8) 5.1 % BASO % (test code = 706-2) 0.5 % GRAN MAT x10^3(ANC) (test code = 7509039720) 5.08 10*3/uL 1.88-7.09 IMM GRAN x10^3 (test code = 6884708932) 0.05 10*3/uL 0.00-0.06 LYMPH x10^3 (test code = 731-0) 1.47 10*3/uL 1.32-3.29 MONO x10^3 (test code = 742-7) 0.39 10*3/uL 0.33-0.92 EOS x10^3 (test code = 711-2) 0.38 10*3/uL 0.03-0.39 BASO x10^3 (test code = 704-7) 0.04 10*3/uL 0.01-0.07 Lab Interpretation (test code = 96581-2) [id number]* Test Item Value Reference Range Interpretation Comme nts POCT PREG (test code = 1605) Negative On board controls acceptable with C Line (test code = 3574) Yes POCT PREG LOT # (test code = 3575) [id number] POCT PREG TEST DATE ( test code = 3576) 04-11-2024 Lab Interpretation (test cod e = 78579-5) [facility] [id number] 16:24:00* Test Item Value Reference Range Interpretation Comme nts POCT PREG (test code = 1605) Negative On board controls acceptable with C Line (test code = 3574) Yes POCT PREG LOT # (test code = 3575) [id number] POCT PREG TEST DATE ( test code = 3576) 04-11-2024 Lab Interpretation (test cod e = 04000-5) [facility] [id number] 16:24:00* Test Item Value Reference Range Interpretation Comme nts POCT PREG (test code = 1605) Negative On board controls acceptable with C Line (test code = 3574) Yes POCT PREG LOT # (test code = 3575) [id number] POCT PREG TEST DATE ( test code = 3576) 04-11-2024 Lab Interpretation (test cod e = 23290-8) [facility] [id number] 16:24:00* Test Item Value Reference Range Interpretation Comme nts POCT PREG (test code = 1605) Negative On board controls acceptable with C Line (test code = 3574) Yes POCT PREG LOT # (test code = 3575) [id number] POCT PREG TEST DATE ( test code = 3576) 04-11-2024 Lab Interpretation (test cod e = 29980-5) [facility] [id number] 16:24:00* Test Item Value Reference Range Interpretation Comme nts POCT PREG (test code = 1605) Negative On board controls acceptable with C Line (test code = 3574) Yes POCT PREG LOT # (test code = 3575) [id number] POCT PREG TEST DATE ( test code = 3576) 04-11-2024 Lab Interpretation (test cod e = 00633-9) [facility] [id number] 16:24:00* Test Item Value Reference Range Interpretation Comme nts POCT PREG (test code = 1605) Negative On board controls acceptable with C Line (test code = 3574) Yes POCT PREG LOT # (test code = 3575) [id number] POCT PREG TEST DATE ( test code = 3576) 04-11-2024 Lab Interpretation (test cod e = 39266-1) [facility] [id number] 16:24:00* Test Item Value Reference Range Interpretation Comme nts POCT PREG (test code = 1605) Negative On board controls acceptable with C Line (test code = 3574) Yes POCT PREG LOT # (test code = 3575) [id number] POCT PREG TEST DATE ( test code = 3576) 04-11-2024 Lab Interpretation (test cod e = 50296-3) [facility] [id number] 16:24:00* Test Item Value Reference Range Interpretation Comme nts POCT PREG (test code = 1605) Negative On board controls acceptable with C Line (test code = 3574) Yes POCT PREG LOT # (test code = 3575) [id number] POCT PREG TEST DATE ( test code = 3576) 04-11-2024 Lab Interpretation (test cod e = 98499-2) [facility] [id number] 16:24:00* Test Item Value Reference Range Interpretation Comme nts POCT PREG (test code = 1605) Negative On board controls acceptable with C Line (test code = 3574) Yes POCT PREG LOT # (test code = 3575) [id number] POCT PREG TEST DATE ( test code = 3576) 04-11-2024 Lab Interpretation (test cod e = 17559-8) [facility] [id number] 16:24:00* Test Item Value Reference Range Interpretation Comme nts POCT PREG (test code = 1605) Negative On board controls acceptable with C Line (test code = 3574) Yes POCT PREG LOT # (test code = 3575) [id number] POCT PREG TEST DATE ( test code = 3576) 04-11-2024 Lab Interpretation (test cod e = 56043-9) [facility] [id number] 16:24:00* Test Item Value Reference Range Interpretation Comme nts POCT PREG (test code = 1605) Negative On board controls acceptable with C Line (test code = 3574) Yes POCT PREG LOT # (test code = 3575) [id number] POCT PREG TEST DATE ( test code = 3576) 04-11-2024 Lab Interpretation (test cod e = 47735-4) [facility] [id number] 16:24:00* Test Item Value Reference Range Interpretation Comme nts POCT PREG (test code = 1605) Negative On board controls acceptable with C Line (test code = 3574) Yes POCT PREG LOT # (test code = 3575) [id number] POCT PREG TEST DATE ( test code = 3576) 04-11-2024 Lab Interpretation (test cod e = 28092-2) [facility] [id number] 16:24:00* Test Item Value Reference Range Interpretation Comme nts POCT PREG (test code = 1605) Negative On board controls acceptable with C Line (test code = 3574) Yes POCT PREG LOT # (test code = 3575) [id number] POCT PREG TEST DATE ( test code = 3576) 04-11-2024 Lab Interpretation (test cod e = 22131-2) [facility] [id number] 16:24:00* Test Item Value Reference Range Interpretation Comme nts POCT PREG (test code = 1605) Negative On board controls acceptable with C Line (test code = 3574) Yes POCT PREG LOT # (test code = 3575) [id number] POCT PREG TEST DATE ( test code = 3576) 04-11-2024 Lab Interpretation (test cod e = 02203-9) [facility] [id number] 16:24:00* Test Item Value Reference Range Interpretation Comme nts POCT PREG (test code = 1605) Negative On board controls acceptable with C Line (test code = 3574) Yes POCT PREG LOT # (test code = 3575) [id number] POCT PREG TEST DATE ( test code = 3576) 04-11-2024 Lab Interpretation (test cod e = 45749-1) [facility] [id number] 16:24:00* Test Item Value Reference Range Interpretation Comme nts POCT PREG (test code = 1605) Negative On board controls acceptable with C Line (test code = 3574) Yes POCT PREG LOT # (test code = 3575) 164306 POCT PREG TEST DATE ( test code = 3576) 04-11-2024 Lab Interpretation (test cod e = 53650-5) Normal [facility] [id number] 16:24:00* Test Item Value Reference Range Interpretation Comme nts POCT PREG (test code = 1605) Negative On board controls acceptable with C Line (test code = 3574) Yes POCT PREG LOT # (test code = 3575) [id number] POCT PREG TEST DATE ( test code = 3576) 04-11-2024 Lab Interpretation (test cod e = 13186-3) Normal [facility] [id number] 16:24:00* Test Item Value Reference Range Interpretation Comme nts POCT PREG (test code = 1605) Negative On board controls acceptable with C Line (test code = 3574) Yes POCT PREG LOT # (test code = 3575) 828208 POCT PREG TEST DATE ( test code = 3576) 04-11-2024 Lab Interpretation (test cod e = 67823-2) Normal [facility] ONLY CELIAC SCREEN [id number] 19:09:14 * Test Item Value Reference Range Interpretation Comme nts Tissue Transglutaminase (tTG) Ab, IgA Interpretation (test code = 18378-7) Negative Negative Deamidated Gliadin Peptide (DGP) Ab, IgA Interpretation (test code = 57299-2) Negative Negative Tissue Transglutaminase (tTG) Ab, IgA (test code = 5737250824) <=7.0 Deamidated Gliadin Peptide (DGP) Ab, IgA (test code = 2541377411) 0.4 U/mL <=7.0 ZAINAB (test code = ZAINAB) < 7 U/mL ? Negative7 - 10 U/mL ?Equivocal> 10 U/mL ?Positive In case of equivocal results, we recommend to retest the patient after 8 -12 weeks. Lab Interpretation (test code = 45266-5) Normal [facility] ONLY CELIAC SCREEN [id number] 19:09:14 * Test Item Value Reference Range Interpretation Comme nts Tissue Transglutaminase (tTG) Ab, IgA Interpretation (test code = 02047-9) Negative Negative Deamidated Gliadin Peptide (DGP) Ab, IgA Interpretation (test code = 31351-5) Negative Negative Tissue Transglutaminase (tTG) Ab, IgA (test code = 3753598552) <=7.0 Deamidated Gliadin Peptide (DGP) Ab, IgA (test code = 3071958778) 0.4 U/mL <=7.0 ZAINAB (test code = ZAINAB) < 7 U/mL ? Negative7 - 10 U/mL ?Equivocal> 10 U/mL ?Positive In case of equivocal results, we recommend to retest the patient after 8 -12 weeks. Lab Interpretation (test code = 72302-7) Normal [facility] ONLY CELIAC SCREEN [id number] 19:09:14 * Test Item Value Reference Range Interpretation Comme nts Tissue Transglutaminase (tTG) Ab, IgA Interpretation (test code = 28718-9) Negative Negative Deamidated Gliadin Peptide (DGP) Ab, IgA Interpretation (test code = 94464-6) Negative Negative Tissue Transglutaminase (tTG) Ab, IgA (test code = 7132595018) <=7.0 Deamidated Gliadin Peptide (DGP) Ab, IgA (test code = 0406732118) 0.4 U/mL <=7.0 ZAINAB (test code = ZAINAB) < 7 U/mL ? Negative7 - 10 U/mL ?Equivocal> 10 U/mL ?Positive In case of equivocal results, we recommend to retest the patient after 8 -12 weeks. Lab Interpretation (test code = 56479-0) Normal [facility] ONLY CELIAC SCREEN [id number] 19:09:14 * Test Item Value Reference Range Interpretation Comme nts Tissue Transglutaminase (tTG) Ab, IgA Interpretation (test code = 02381-2) Negative Negative Deamidated Gliadin Peptide (DGP) Ab, IgA Interpretation (test code = 51302-0) Negative Negative Tissue Transglutaminase (tTG) Ab, IgA (test code = 7323951715) <=7.0 Deamidated Gliadin Peptide (DGP) Ab, IgA (test code = 4535857525) 0.4 U/mL <=7.0 ZAINAB (test code = ZAINAB) < 7 U/mL ? Negative7 - 10 U/mL ?Equivocal> 10 U/mL ?Positive In case of equivocal results, we recommend to retest the patient after 8 -12 weeks. Lab Interpretation (test code = 66177-3) Normal [facility] ONLY CELIAC SCREEN [id number] 19:09:14 * Test Item Value Reference Range Interpretation Comme nts Tissue Transglutaminase (tTG) Ab, IgA Interpretation (test code = 72349-4) Negative Negative Deamidated Gliadin Peptide (DGP) Ab, IgA Interpretation (test code = 63836-9) Negative Negative Tissue Transglutaminase (tTG) Ab, IgA (test code = 9828279810) <=7.0 Deamidated Gliadin Peptide (DGP) Ab, IgA (test code = 8289069911) 0.4 U/mL <=7.0 ZAINAB (test code = ZAINAB) < 7 U/mL ? Negative7 - 10 U/mL ?Equivocal> 10 U/mL ?Positive In case of equivocal results, we recommend to retest the patient after 8 -12 weeks. Lab Interpretation (test code = 68946-7) Normal [facility] ONLY CELIAC SCREEN [id number] 19:09:14 * Test Item Value Reference Range Interpretation Comme nts Tissue Transglutaminase (tTG) Ab, IgA Interpretation (test code = 18406-8) Negative Negative Deamidated Gliadin Peptide (DGP) Ab, IgA Interpretation (test code = 70591-6) Negative Negative Tissue Transglutaminase (tTG) Ab, IgA (test code = 4009591544) <=7.0 Deamidated Gliadin Peptide (DGP) Ab, IgA (test code = 0603711382) 0.4 U/mL <=7.0 ZAINAB (test code = ZAINAB) < 7 U/mL ? Negative7 - 10 U/mL ?Equivocal> 10 U/mL ?Positive In case of equivocal results, we recommend to retest the patient after 8 -12 weeks. Lab Interpretation (test code = 38233-9) Normal [facility] ONLY CELIAC SCREEN [id number] 19:09:14 * Test Item Value Reference Range Interpretation Comme nts Tissue Transglutaminase (tTG) Ab, IgA Interpretation (test code = 32973-5) Negative Negative Deamidated Gliadin Peptide (DGP) Ab, IgA Interpretation (test code = 69119-2) Negative Negative Tissue Transglutaminase (tTG) Ab, IgA (test code = 8300317025) <=7.0 Deamidated Gliadin Peptide (DGP) Ab, IgA (test code = 6183145511) 0.4 U/mL <=7.0 ZAINAB (test code = ZAINAB) < 7 U/mL ? Negative7 - 10 U/mL ?Equivocal> 10 U/mL ?Positive In case of equivocal results, we recommend to retest the patient after 8 -12 weeks. Lab Interpretation (test code = 27009-8) Normal [facility] ONLY CELIAC SCREEN [id number] 19:09:14 * Test Item Value Reference Range Interpretation Comme nts Tissue Transglutaminase (tTG) Ab, IgA Interpretation (test code = 21641-9) Negative Negative Deamidated Gliadin Peptide (DGP) Ab, IgA Interpretation (test code = 48458-5) Negative Negative Tissue Transglutaminase (tTG) Ab, IgA (test code = 4116326092) <=7.0 Deamidated Gliadin Peptide (DGP) Ab, IgA (test code = 3044664812) 0.4 U/mL <=7.0 ZAINAB (test code = ZAINAB) < 7 U/mL ? Negative7 - 10 U/mL ?Equivocal> 10 U/mL ?Positive In case of equivocal results, we recommend to retest the patient after 8 -12 weeks. Lab Interpretation (test code = 49113-1) Normal [facility] ONLY CELIAC SCREEN [id number] 19:09:14 * Test Item Value Reference Range Interpretation Comme nts Tissue Transglutaminase (tTG) Ab, IgA Interpretation (test code = 10676-9) Negative Negative Deamidated Gliadin Peptide (DGP) Ab, IgA Interpretation (test code = 78724-2) Negative Negative Tissue Transglutaminase (tTG) Ab, IgA (test code = 9956597625) <=7.0 Deamidated Gliadin Peptide (DGP) Ab, IgA (test code = 6546055137) 0.4 U/mL <=7.0 ZAINAB (test code = ZAINAB) < 7 U/mL ? Negative7 - 10 U/mL ?Equivocal> 10 U/mL ?Positive In case of equivocal results, we recommend to retest the patient after 8 -12 weeks. Lab Interpretation (test code = 74628-3) Normal [facility] ONLY CELIAC SCREEN [id number] 19:09:14 * Test Item Value Reference Range Interpretation Comme nts Tissue Transglutaminase (tTG) Ab, IgA Interpretation (test code = 60850-6) Negative Negative Deamidated Gliadin Peptide (DGP) Ab, IgA Interpretation (test code = 74399-3) Negative Negative Tissue Transglutaminase (tTG) Ab, IgA (test code = 2616657933) <=7.0 Deamidated Gliadin Peptide (DGP) Ab, IgA (test code = 8653348523) 0.4 U/mL <=7.0 ZAINAB (test code = ZAINAB) < 7 U/mL ? Negative7 - 10 U/mL ?Equivocal> 10 U/mL ?Positive In case of equivocal results, we recommend to retest the patient after 8 -12 weeks. Lab Interpretation (test code = 07596-9) Normal [facility] ONLY CELIAC SCREEN [id number] 19:09:14 * Test Item Value Reference Range Interpretation Comme nts Tissue Transglutaminase (tTG) Ab, IgA Interpretation (test code = 12628-7) Negative Negative Deamidated Gliadin Peptide (DGP) Ab, IgA Interpretation (test code = 06119-4) Negative Negative Tissue Transglutaminase (tTG) Ab, IgA (test code = 3335609446) <=7.0 Deamidated Gliadin Peptide (DGP) Ab, IgA (test code = 5347960275) 0.4 U/mL <=7.0 ZAINAB (test code = ZAINAB) < 7 U/mL ? Negative7 - 10 U/mL ?Equivocal> 10 U/mL ?Positive In case of equivocal results, we recommend to retest the patient after 8 -12 weeks. Lab Interpretation (test code = 35435-8) Normal [facility] ONLY CELIAC SCREEN [id number] 19:09:14 * Test Item Value Reference Range Interpretation Comme nts Tissue Transglutaminase (tTG) Ab, IgA Interpretation (test code = 60049-0) Negative Negative Deamidated Gliadin Peptide (DGP) Ab, IgA Interpretation (test code = 18217-5) Negative Negative Tissue Transglutaminase (tTG) Ab, IgA (test code = 5061355439) <=7.0 Deamidated Gliadin Peptide (DGP) Ab, IgA (test code = 1242060137) 0.4 U/mL <=7.0 ZAINAB (test code = ZAINAB) < 7 U/mL ? Negative7 - 10 U/mL ?Equivocal> 10 U/mL ?Positive In case of equivocal results, we recommend to retest the patient after 8 -12 weeks. Lab Interpretation (test code = 91860-3) Normal [facility] [id number] 20:24:44* Test Item Value Reference Range Interpretation Comme nts Total IgA (test code = 6629465898) 78.3 U/mL 70-312 Lab Interpretation (test cod e = 79854-7) Normal [facility] [id number] 20:24:44* Test Item Value Reference Range Interpretation Comme nts Total IgA (test code = 9845058850) 78.3 U/mL 70-312 Lab Interpretation (test cod e = 11975-8) Normal [facility] [id number] 20:24:44* Test Item Value Reference Range Interpretation Comme nts Total IgA (test code = 5812913682) 78.3 U/mL 70-312 Lab Interpretation (test cod e = 48555-8) Normal [facility]2023-09-07 20:24:44* Test Item Value Reference Range Interpretation Comme nts Total IgA (test code = 7868716382) 78.3 U/mL 70-312 Lab Interpretation (test cod e = 87427-7) Normal [facility]2023-09-07 20:24:44* Test Item Value Reference Range Interpretation Comme nts Total IgA (test code = 4499429253) 78.3 U/mL 70-312 Lab Interpretation (test cod e = 25074-5) Normal [facility]2023-09-07 20:24:44* Test Item Value Reference Range Interpretation Comme nts Total IgA (test code = 7557985866) 78.3 U/mL 70-312 Lab Interpretation (test cod e = 03508-4) Normal [facility]2023-09-07 20:24:44* Test Item Value Reference Range Interpretation Comme nts Total IgA (test code = 8983160374) 78.3 U/mL 70-312 Lab Interpretation (test cod e = 06480-8) [facility]2023-09-07 20:24:44* Test Item Value Reference Range Interpretation Comme nts Total IgA (test code = 3756527266) 78.3 U/mL 70-312 Lab Interpretation (test cod e = 23382-1) Normal [facility]2023-09-07 20:24:44* Test Item Value Reference Range Interpretation Comme nts Total IgA (test code = 1862949447) 78.3 U/mL 70-312 Lab Interpretation (test cod e = 53212-7) Normal [facility]2023-09-07 20:24:44* Test Item Value Reference Range Interpretation Comme nts Total IgA (test code = 0782026495) 78.3 U/mL 70-312 Lab Interpretation (test cod e = 02564-2) [facility]2023-09-07 20:24:44* Test Item Value Reference Range Interpretation Comme nts Total IgA (test code = 5342515825) 78.3 U/mL 70-312 Lab Interpretation (test cod e = 67191-8) Normal [facility] [id number] 20:24:44* Test Item Value Reference Range Interpretation Comme nts Total IgA (test code = 0560116180) 78.3 U/mL 70-312 Lab Interpretation (test cod e = 14868-1) Normal [facility] [id number] 17:30:19* Test Item Value Reference Range Interpretation Comme nts FERRITIN (test code = 2561665323) 4.8 ng/mL 6.0-137.0 L ZAINAB (test code = ZAINAB) Biotin has been reported to cause a negative bias, interpret results relative to patient's use of biotin. Lab Interpretation (test code = 45466-4) Abnormal [facility] [id number] 17:30:19* Test Item Value Reference Range Interpretation Comme nts FERRITIN (test code = 3150723564) 4.8 ng/mL 6.0-137.0 L ZAINAB (test code = ZAINAB) Biotin has been reported to cause a negative bias, interpret results relative to patient's use of biotin. Lab Interpretation (test code = 74674-8) Abnormal [facility] [id number] 17:30:19* Test Item Value Reference Range Interpretation Comme nts FERRITIN (test code = 8956311830) 4.8 ng/mL 6.0-137.0 L ZAINAB (test code = ZAINAB) Biotin has been reported to cause a negative bias, interpret results relative to patient's use of biotin. Lab Interpretation (test code = 96067-4) Abnormal [facility] [id number] 17:30:19* Test Item Value Reference Range Interpretation Comme nts FERRITIN (test code = 0583961746) 4.8 ng/mL 6.0-137.0 L ZAINAB (test code = ZAINAB) Biotin has been reported to cause a negative bias, interpret results relative to patient's use of biotin. Lab Interpretation (test code = 20965-2) Abnormal [facility] [id number] 17:30:19* Test Item Value Reference Range Interpretation Comme nts FERRITIN (test code = 9071522945) 4.8 ng/mL 6.0-137.0 L ZAINAB (test code = ZAINAB) Biotin has been reported to cause a negative bias, interpret results relative to patient's use of biotin. Lab Interpretation (test code = 97283-7) Abnormal [facility] [id number] 17:30:19* Test Item Value Reference Range Interpretation Comme nts FERRITIN (test code = 7188135523) 4.8 ng/mL 6.0-137.0 L ZAINAB (test code = ZAINAB) Biotin has been reported to cause a negative bias, interpret results relative to patient's use of biotin. Lab Interpretation (test code = 13033-1) Abnormal [facility] [id number] 17:30:19* Test Item Value Reference Range Interpretation Comme nts FERRITIN (test code = 2781179201) 4.8 ng/mL 6.0-137.0 L ZAINAB (test code = ZAINAB) Biotin has been reported to cause a negative bias, interpret results relative to patient's use of biotin. Lab Interpretation (test code = 41989-1) Abnormal [facility] [id number] 17:30:19* Test Item Value Reference Range Interpretation Comme nts FERRITIN (test code = 6058817624) 4.8 ng/mL 6.0-137.0 L ZAINAB (test code = ZAINAB) Biotin has been reported to cause a negative bias, interpret results relative to patient's use of biotin. Lab Interpretation (test code = 64615-5) Abnormal [facility] [id number] 17:30:19* Test Item Value Reference Range Interpretation Comme nts FERRITIN (test code = 6798313405) 4.8 ng/mL 6.0-137.0 L ZAINAB (test code = ZAINAB) Biotin has been reported to cause a negative bias, interpret results relative to patient's use of biotin. Lab Interpretation (test code = 47828-3) Abnormal [facility] [id number] 17:30:19* Test Item Value Reference Range Interpretation Comme nts FERRITIN (test code = 3735169564) 4.8 ng/mL 6.0-137.0 L ZAINAB (test code = ZAINAB) Biotin has been reported to cause a negative bias, interpret results relative to patient's use of biotin. Lab Interpretation (test code = 38272-3) [facility] [id number] 17:30:19* Test Item Value Reference Range Interpretation Comme nts FERRITIN (test code = 5629644493) 4.8 ng/mL 6.0-137.0 L ZAINAB (test code = ZAINAB) Biotin has been reported to cause a negative bias, interpret results relative to patient's use of biotin. Lab Interpretation (test code = 14538-6) [facility] [id number] 17:30:19* Test Item Value Reference Range Interpretation Comme nts FERRITIN (test code = 1979326524) 4.8 ng/mL 6.0-137.0 L ZAINAB (test code = ZAINAB) Biotin has been reported to cause a negative bias, interpret results relative to patient's use of biotin. Lab Interpretation (test code = 00874-0) Abnormal [facility] [id number] 17:03:34* Test Item Value Reference Range Interpretation Comme nts IRON (test code = 5877668607) 34 ug/dL 50-160 L TIBC (test code = 3394061689) 515 ug/dL 250-410 H % FE SAT (test code = 5394237587) 7 % 20-50 L Lab Interpretation (test cod e = 51272-5) Abnormal [facility] [id number] 17:03:34* Test Item Value Reference Range Interpretation Comme nts IRON (test code = 7321599566) 34 ug/dL 50-160 L TIBC (test code = 4422784219) 515 ug/dL 250-410 H % FE SAT (test code = 6661157935) 7 % 20-50 L Lab Interpretation (test cod e = 57638-5) Abnormal [facility] [id number] 17:03:34* Test Item Value Reference Range Interpretation Comme nts IRON (test code = 5223888315) 34 ug/dL 50-160 L TIBC (test code = 7411319671) 515 ug/dL 250-410 H % FE SAT (test code = 6066315138) 7 % 20-50 L Lab Interpretation (test cod e = 13905-3) Abnormal [facility]2023-09-07 17:03:34* Test Item Value Reference Range Interpretation Comme nts IRON (test code = 0595900200) 34 ug/dL 50-160 L TIBC (test code = 2678864530) 515 ug/dL 250-410 H % FE SAT (test code = 2274958611) 7 % 20-50 L Lab Interpretation (test cod e = 83146-2) Abnormal [facility]2023-09-07 17:03:34* Test Item Value Reference Range Interpretation Comme nts IRON (test code = 6271586658) 34 ug/dL 50-160 L TIBC (test code = 0247947650) 515 ug/dL 250-410 H % FE SAT (test code = 9626681844) 7 % 20-50 L Lab Interpretation (test cod e = 49715-6) Abnormal [facility]2023-09-07 17:03:34* Test Item Value Reference Range Interpretation Comme nts IRON (test code = 8925651426) 34 ug/dL 50-160 L TIBC (test code = 0198706970) 515 ug/dL 250-410 H % FE SAT (test code = 6419857864) 7 % 20-50 L Lab Interpretation (test cod e = 81457-1) Abnormal [facility]2023-09-07 17:03:34* Test Item Value Reference Range Interpretation Comme nts IRON (test code = 1739466238) 34 ug/dL 50-160 L TIBC (test code = 1534501393) 515 ug/dL 250-410 H % FE SAT (test code = 1324128189) 7 % 20-50 L Lab Interpretation (test cod e = 61137-5) Abnormal [facility]2023-09-07 17:03:34* Test Item Value Reference Range Interpretation Comme nts IRON (test code = 9852805404) 34 ug/dL 50-160 L TIBC (test code = 2548080813) 515 ug/dL 250-410 H % FE SAT (test code = 1580200968) 7 % 20-50 L Lab Interpretation (test cod e = 01984-7) Abnormal [facility]2023-09-07 17:03:34* Test Item Value Reference Range Interpretation Comme nts IRON (test code = 0801319961) 34 ug/dL 50-160 L TIBC (test code = 7342203732) 515 ug/dL 250-410 H % FE SAT (test code = 0731200754) 7 % 20-50 L Lab Interpretation (test cod e = 40999-7) Abnormal [facility]2023-09-07 17:03:34* Test Item Value Reference Range Interpretation Comme nts IRON (test code = 7091262822) 34 ug/dL 50-160 L TIBC (test code = 0899128373) 515 ug/dL 250-410 H % FE SAT (test code = 0603827077) 7 % 20-50 L Lab Interpretation (test cod e = 92988-7) Abnormal [place] 576123-09-07 17:03:34* Test Item Value Reference Range Interpretation Comme nts IRON (test code = 4436732466) 34 ug/dL 50-160 L TIBC (test code = 7862042905) 515 ug/dL 250-410 H % FE SAT (test code = 9687174750) 7 % 20-50 L Lab Interpretation (test cod e = 06385-7) Abnormal [facility]2023-09-07 17:03:34* Test Item Value Reference Range Interpretation Comme nts IRON (test code = 7164912823) 34 ug/dL 50-160 L TIBC (test code = 1898202800) 515 ug/dL 250-410 H % FE SAT (test code = 2378306343) 7 % 20-50 L Lab Interpretation (test cod e = 24146-4) Abnormal [facility]2023-08-24 19:48:06* Test Item Value Reference Range Interpretation Comme nts [place] (test code = 2183701860) 0.5 mmol/L 0.6-1.2 L ZAINAB (test code = ZAINAB) Toxic Range: ? Greater than 1.2 mmol/L Lab Interpretation (test code = 98114-0) Abnormal [facility]2023-08-24 19:48:06* Test Item Value Reference Range Interpretation Comme nts [place] (test code = 8707947268) 0.5 mmol/L 0.6-1.2 L ZAINAB (test code = ZAINAB) Toxic Range: ? Greater than 1.2 mmol/L Lab Interpretation (test code = 10531-6) Abnormal [facility]2023-08-24 19:48:06* Test Item Value Reference Range Interpretation Comme nts [place] (test code = 6911143189) 0.5 mmol/L 0.6-1.2 L ZAINAB (test code = ZAINAB) Toxic Range: ? Greater than 1.2 mmol/L Lab Interpretation (test code = 07474-6) Abnormal [facility]2023-08-24 19:48:06* Test Item Value Reference Range Interpretation Comme nts [place] (test code = 2683853897) 0.5 mmol/L 0.6-1.2 L ZAINAB (test code = ZAINAB) Toxic Range: ? Greater than 1.2 mmol/L Lab Interpretation (test code = 79552-5) Abnormal [facility]2023-08-24 19:48:06* Test Item Value Reference Range Interpretation Comme nts [place] (test code = 4123197599) 0.5 mmol/L 0.6-1.2 L ZAINAB (test code = ZAINAB) Toxic Range: ? Greater than 1.2 mmol/L Lab Interpretation (test code = 18737-1) Abnormal [facility]2023-08-24 19:48:06* Test Item Value Reference Range Interpretation Comme nts [place] (test code = 8043339065) 0.5 mmol/L 0.6-1.2 L ZAINAB (test code = ZAINAB) Toxic Range: ? Greater than 1.2 mmol/L Lab Interpretation (test code = 19544-1) Abnormal [facility]2023-08-24 19:48:06* Test Item Value Reference Range Interpretation Comme nts [place] (test code = 0883187906) 0.5 mmol/L 0.6-1.2 L ZAINAB (test code = ZAINAB) Toxic Range: ? Greater than 1.2 mmol/L Lab Interpretation (test code = 41377-2) Abnormal [facility]2023-08-24 19:48:06* Test Item Value Reference Range Interpretation Comme nts [place] (test code = 7182059024) 0.5 mmol/L 0.6-1.2 L ZAINAB (test code = ZAINAB) Toxic Range: ? Greater than 1.2 mmol/L Lab Interpretation (test code = 42935-8) Abnormal [facility]2023-08-24 19:48:06* Test Item Value Reference Range Interpretation Comme nts [place] (test code = 7009413977) 0.5 mmol/L 0.6-1.2 L ZAINAB (test code = ZAINAB) Toxic Range: ? Greater than 1.2 mmol/L Lab Interpretation (test code = 20128-5) Abnormal [facility]2023-08-24 19:48:06* Test Item Value Reference Range Interpretation Comme nts [place] (test code = 1974090657) 0.5 mmol/L 0.6-1.2 L ZAINAB (test code = ZAINAB) Toxic Range: ? Greater than 1.2 mmol/L Lab Interpretation (test code = 29922-8) Abnormal [facility]2023-08-24 19:48:06* Test Item Value Reference Range Interpretation Comme nts [place] (test code = 3124936914) 0.5 mmol/L 0.6-1.2 L ZAINAB (test code = ZAINAB) Toxic Range: ? Greater than 1.2 mmol/L Lab Interpretation (test code = 14249-5) Abnormal [facility]2023-08-24 19:48:06* Test Item Value Reference Range Interpretation Comme nts [place] (test code = 3181329161) 0.5 mmol/L 0.6-1.2 L ZAINAB (test code = ZAINAB) Toxic Range: ? Greater than 1.2 mmol/L Lab Interpretation (test code = 58445-8) Abnormal [facility]2023-08-24 19:48:06* Test Item Value Reference Range Interpretation Comme nts [place] (test code = 4595416903) 0.5 mmol/L 0.6-1.2 L ZAINAB (test code = ZAINAB) Toxic Range: ? Greater than 1.2 mmol/L Lab Interpretation (test code = 97743-2) [facility]* Test Item Value Reference Range Interpretation Comme nts [place] (test code = 4842576140) 0.5 mmol/L 0.6-1.2 L ZAINAB (test code = ZAINAB) Toxic Range: ? Greater than 1.2 mmol/L Lab Interpretation (test code = 13884-2) [facility] [id number] 17:24:34 * Test Item Value Reference Range Interpretation Comme nts TSH (test code = 7671356372) 1.07 See_Comment [Automated messa ge] The system which generated this result transmitted reference range: 0.45 - 4.70 mIU/L. The reference range was not used to interpret this result as normal/abnormal. Lab Interpretation (test code = 39974-5) Normal [facility] [id number] 17:24:34 * Test Item Value Reference Range Interpretation Comme nts TSH (test code = 9942866542) 1.07 See_Comment [Automated messa ge] The system which generated this result transmitted reference range: 0.45 - 4.70 mIU/L. The reference range was not used to interpret this result as normal/abnormal. Lab Interpretation (test code = 61732-1) Normal [facility] [id number] 17:24:34 * Test Item Value Reference Range Interpretation Comme nts TSH (test code = 0547947727) 1.07 See_Comment [Automated messa ge] The system which generated this result transmitted reference range: 0.45 - 4.70 mIU/L. The reference range was not used to interpret this result as normal/abnormal. Lab Interpretation (test code = 35021-0) Normal [facility] [id number] 17:24:34 * Test Item Value Reference Range Interpretation Comme nts TSH (test code = 4069529012) 1.07 See_Comment [Automated messa ge] The system which generated this result transmitted reference range: 0.45 - 4.70 mIU/L. The reference range was not used to interpret this result as normal/abnormal. Lab Interpretation (test code = 51235-1) Normal [facility] [id number] 17:24:34 * Test Item Value Reference Range Interpretation Comme nts TSH (test code = 0372280915) 1.07 See_Comment [Automated messa ge] The system which generated this result transmitted reference range: 0.45 - 4.70 mIU/L. The reference range was not used to interpret this result as normal/abnormal. Lab Interpretation (test code = 03846-3) Normal [facility] [id number] 17:24:34 * Test Item Value Reference Range Interpretation Comme nts TSH (test code = 3753553634) 1.07 See_Comment [Automated messa ge] The system which generated this result transmitted reference range: 0.45 - 4.70 mIU/L. The reference range was not used to interpret this result as normal/abnormal. Lab Interpretation (test code = 04583-0) Normal [facility] [id number] 17:24:34 * Test Item Value Reference Range Interpretation Comme nts TSH (test code = 0716491855) 1.07 See_Comment [Automated messa ge] The system which generated this result transmitted reference range: 0.45 - 4.70 mIU/L. The reference range was not used to interpret this result as normal/abnormal. Lab Interpretation (test code = 76454-6) Normal [facility] [id number] 17:24:34 * Test Item Value Reference Range Interpretation Comme nts TSH (test code = 7816685328) 1.07 See_Comment [Automated messa ge] The system which generated this result transmitted reference range: 0.45 - 4.70 mIU/L. The reference range was not used to interpret this result as normal/abnormal. Lab Interpretation (test code = 27082-7) Normal [facility] [id number] 17:24:34 * Test Item Value Reference Range Interpretation Comme nts TSH (test code = 2446240302) 1.07 See_Comment [Automated messa ge] The system which generated this result transmitted reference range: 0.45 - 4.70 mIU/L. The reference range was not used to interpret this result as normal/abnormal. Lab Interpretation (test code = 08171-7) Normal [facility] [id number] 17:24:34 * Test Item Value Reference Range Interpretation Comme nts TSH (test code = 5435311045) 1.07 See_Comment [Automated messa ge] The system which generated this result transmitted reference range: 0.45 - 4.70 mIU/L. The reference range was not used to interpret this result as normal/abnormal. Lab Interpretation (test code = 84757-5) Normal [facility] [id number] 17:24:34 * Test Item Value Reference Range Interpretation Comme nts TSH (test code = 5866133185) 1.07 See_Comment [Automated messa ge] The system which generated this result transmitted reference range: 0.45 - 4.70 mIU/L. The reference range was not used to interpret this result as normal/abnormal. Lab Interpretation (test code = 38232-6) Normal [facility] [id number] 17:24:34 * Test Item Value Reference Range Interpretation Comme nts TSH (test code = 1164597438) 1.07 See_Comment [Automated messa ge] The system which generated this result transmitted reference range: 0.45 - 4.70 mIU/L. The reference range was not used to interpret this result as normal/abnormal. Lab Interpretation (test code = 15561-0) Normal [facility] [id number] 17:24:34 * Test Item Value Reference Range Interpretation Comme nts TSH (test code = 1815676669) 1.07 See_Comment [Automated messa ge] The system which generated this result transmitted reference range: 0.45 - 4.70 mIU/L. The reference range was not used to interpret this result as normal/abnormal. Lab Interpretation (test code = 40367-9) Normal [facility] [id number] 17:24:34 * Test Item Value Reference Range Interpretation Comme nts TSH (test code = 0771666716) 1.07 See_Comment [Automated messa ge] The system which generated this result transmitted reference range: 0.45 - 4.70 mIU/L. The reference range was not used to interpret this result as normal/abnormal. Lab Interpretation (test code = 75533-5) [id number]TOTAL CHOLESTEROL, TRIGLYCERIDES, HDL)2022-10-05 16:54:48* Test Item Value Reference Range Interpretation Comme nts CHOL (test code = 1352612055) 183 mg/dL 120-200 HDL (test code = 3712073362) 40 mg/dL >=50 L HDLC RATIO (test code = 3696439136) 4.6 <=4.5 H TRIG (test code = 8975684205) 128 mg/dL 30-170 LDL CHOL (test code = 27706-1) 117 mg/dL <=160 VLDL (test code = 6482486414) 26 mg/dL 5-60 Lab Interpretation (test cod e = 45949-3) [facility]normal [facility] (48386)(TOTAL CHOLESTEROL, TRIGLYCERIDES, HDL)2022-10-05 16:54:48* Test Item Value Reference Range Interpretation Comme nts CHOL (test code = 2677085884) 183 mg/dL 120-200 HDL (test code = 6503396492) 40 mg/dL >=50 L HDLC RATIO (test code = 6300498280) 4.6 <=4.5 H TRIG (test code = 5883627790) 128 mg/dL 30-170 LDL CHOL (test code = 75455-6) 117 mg/dL <=160 VLDL (test code = 9548550614) 26 mg/dL 5-60 Lab Interpretation (test cod e = 55884-2) Abnormal [facility] (83392)(TOTAL CHOLESTEROL, TRIGLYCERIDES, HDL)2022-10-05 16:54:48* Test Item Value Reference Range Interpretation Comme nts CHOL (test code = 6233999071) 183 mg/dL 120-200 HDL (test code = 8674120315) 40 mg/dL >=50 L HDLC RATIO (test code = 9670449868) 4.6 <=4.5 H TRIG (test code = 3291867073) 128 mg/dL 30-170 LDL CHOL (test code = 29453-8) 117 mg/dL <=160 VLDL (test code = 3364033484) 26 mg/dL 5-60 Lab Interpretation (test cod e = 64129-3) Abnormal [facility] (02006)(TOTAL CHOLESTEROL, TRIGLYCERIDES, HDL)2022-10-05 16:54:48* Test Item Value Reference Range Interpretation Comme nts CHOL (test code = 2245758260) 183 mg/dL 120-200 HDL (test code = 2480626285) 40 mg/dL >=50 L HDLC RATIO (test code = 6975345546) 4.6 <=4.5 H TRIG (test code = 6662264031) 128 mg/dL 30-170 LDL CHOL (test code = 81155-8) 117 mg/dL <=160 VLDL (test code = 8300116181) 26 mg/dL 5-60 Lab Interpretation (test cod e = 70631-8) Abnormal [facility] (28802)(TOTAL CHOLESTEROL, TRIGLYCERIDES, HDL)2022-10-05 16:54:48* Test Item Value Reference Range Interpretation Comme nts CHOL (test code = 2685309362) 183 mg/dL 120-200 HDL (test code = 7897113786) 40 mg/dL >=50 L HDLC RATIO (test code = 2457003560) 4.6 <=4.5 H TRIG (test code = 6180319718) 128 mg/dL 30-170 LDL CHOL (test code = 09012-1) 117 mg/dL <=160 VLDL (test code = 4941358905) 26 mg/dL 5-60 Lab Interpretation (test cod e = 75253-3) [facility]normal [facility] (04391)(TOTAL CHOLESTEROL, TRIGLYCERIDES, HDL)2022-10-05 16:54:48* Test Item Value Reference Range Interpretation Comme nts CHOL (test code = 2631684829) 183 mg/dL 120-200 HDL (test code = 1374368161) 40 mg/dL >=50 L HDLC RATIO (test code = 7496128620) 4.6 <=4.5 H TRIG (test code = 2151581827) 128 mg/dL 30-170 LDL CHOL (test code = 14516-1) 117 mg/dL <=160 VLDL (test code = 1639275907) 26 mg/dL 5-60 Lab Interpretation (test cod e = 05947-3) Abnormal [facility] (35738)(TOTAL CHOLESTEROL, TRIGLYCERIDES, HDL)2022-10-05 16:54:48* Test Item Value Reference Range Interpretation Comme nts CHOL (test code = 1594118406) 183 mg/dL 120-200 HDL (test code = 4105116469) 40 mg/dL >=50 L HDLC RATIO (test code = 1637890103) 4.6 <=4.5 H TRIG (test code = 6235792425) 128 mg/dL 30-170 LDL CHOL (test code = 23029-2) 117 mg/dL <=160 VLDL (test code = 5370427126) 26 mg/dL 5-60 Lab Interpretation (test cod e = 60563-4) Abnormal [facility]OL[facility] (61574)2022-10-05 16:54:48* Test Item Value Reference Range Interpretation Comme nts NA (test code = 9684454902) 140 mmol/L 135-145 K (test code = 2212940440) 4.6 mmol/L 3.5-5.0 CL (test code = 7344296033) 106 mmol/L 98-108 CO2 TOTAL (test code = 0275759217) 28 mmol/L 23-31 AGAP (test code = 6914595014) 6 2-16 BUN (test code = 9537144518) 5 mg/dL 7-23 L GLUCOSE (test code = 0454866858) 90 mg/dL 70-110 CREATININE (test code = 5569671095) 0.54 mg/dL 0.50-1.04 TOTAL BILI (test code = 2027202662) 0.1 mg/dL 0.1-1.1 CALCIUM (test code = 7994936005) 9.6 mg/dL 8.6-10.6 T PROTEIN (test code = 2099696160) 6.2 g/dL 6.3-8.2 L ALBUMIN (test code = 8335082193) 4.0 g/dL 3.5-5.0 ALK PHOS (test code = 2412721416) 125 U/L 34-122 H ALTv (test code = 1742-6) 29 U/L 5-35 AST(SGOT) (test code = 1890886550) 24 U/L 13-40 eGFR (test code = 9653504565) 122.1 mL/min/1.73m2 ZAINAB (test code = ZAINAB) [...] imaging tests). Lab Interpretation (test code = 29925-4) [facility]normal [facility] (27147)(TOTAL CHOLESTEROL, TRIGLYCERIDES, HDL)2022-10-05 16:54:48* Test Item Value Reference Range Interpretation Comme nts CHOL (test code = 7340690752) 183 mg/dL 120-200 HDL (test code = 2391406998) 40 mg/dL >=50 L HDLC RATIO (test code = 6308819722) 4.6 <=4.5 H TRIG (test code = 3473076048) 128 mg/dL 30-170 LDL CHOL (test code = 45731-7) 117 mg/dL <=160 VLDL (test code = 7275410004) 26 mg/dL 5-60 Lab Interpretation (test cod e = 68044-5) [facility]normal [facility] (99997)2022-10-05 16:54:48* Test Item Value Reference Range Interpretation Comme nts NA (test code = 9416966416) 140 mmol/L 135-145 K (test code = 1728223539) 4.6 mmol/L 3.5-5.0 CL (test code = 9227663562) 106 mmol/L 98-108 CO2 TOTAL (test code = 0292840020) 28 mmol/L 23-31 AGAP (test code = 7692814244) 6 2-16 BUN (test code = 2998571943) 5 mg/dL 7-23 L GLUCOSE (test code = 3122619132) 90 mg/dL 70-110 CREATININE (test code = 5051538955) 0.54 mg/dL 0.50-1.04 TOTAL BILI (test code = 8284668028) 0.1 mg/dL 0.1-1.1 CALCIUM (test code = 8041470220) 9.6 mg/dL 8.6-10.6 T PROTEIN (test code = 3223148642) 6.2 g/dL 6.3-8.2 L ALBUMIN (test code = 5559827212) 4.0 g/dL 3.5-5.0 ALK PHOS (test code = 2028360441) 125 U/L 34-122 H ALTv (test code = 1742-6) 29 U/L 5-35 AST(SGOT) (test code = 7606587775) 24 U/L 13-40 eGFR (test code = 8355347193) 122.1 mL/min/1.73m2 ZAINAB (test code = ZAINAB) [...] imaging tests). Lab Interpretation (test code = 88216-1) [facility]normal [facility] (15940)(TOTAL CHOLESTEROL, TRIGLYCERIDES, HDL)2022-10-05 16:54:48* Test Item Value Reference Range Interpretation Comme nts CHOL (test code = 8703354850) 183 mg/dL 120-200 HDL (test code = 6865693765) 40 mg/dL >=50 L HDLC RATIO (test code = 6799590736) 4.6 <=4.5 H TRIG (test code = 3979194022) 128 mg/dL 30-170 LDL CHOL (test code = 86032-0) 117 mg/dL <=160 VLDL (test code = 4512303469) 26 mg/dL 5-60 Lab Interpretation (test cod e = 83493-7) [facility]normal [facility] (01374)2022-10-05 16:54:48* Test Item Value Reference Range Interpretation Comme nts NA (test code = 5835701099) 140 mmol/L 135-145 K (test code = 3479650123) 4.6 mmol/L 3.5-5.0 CL (test code = 3387734012) 106 mmol/L 98-108 CO2 TOTAL (test code = 3243449986) 28 mmol/L 23-31 AGAP (test code = 4463363250) 6 2-16 BUN (test code = 7396998568) 5 mg/dL 7-23 L GLUCOSE (test code = 8315933670) 90 mg/dL 70-110 CREATININE (test code = 0019017410) 0.54 mg/dL 0.50-1.04 TOTAL BILI (test code = 2809540610) 0.1 mg/dL 0.1-1.1 CALCIUM (test code = 8928627539) 9.6 mg/dL 8.6-10.6 T PROTEIN (test code = 9856290024) 6.2 g/dL 6.3-8.2 L ALBUMIN (test code = 3137008576) 4.0 g/dL 3.5-5.0 ALK PHOS (test code = 3833957377) 125 U/L 34-122 H ALTv (test code = 1742-6) 29 U/L 5-35 AST(SGOT) (test code = 6395027021) 24 U/L 13-40 eGFR (test code = 3161250556) 122.1 mL/min/1.73m2 ZAINAB (test code = ZAINAB) [...] imaging tests). Lab Interpretation (test code = 87025-1) [facility]normal [facility] (60629)(TOTAL CHOLESTEROL, TRIGLYCERIDES, HDL)2022-10-05 16:54:48* Test Item Value Reference Range Interpretation Comme nts CHOL (test code = 1216643282) 183 mg/dL 120-200 HDL (test code = 5626543478) 40 mg/dL >=50 L HDLC RATIO (test code = 8941670960) 4.6 <=4.5 H TRIG (test code = 2973024988) 128 mg/dL 30-170 LDL CHOL (test code = 34621-1) 117 mg/dL <=160 VLDL (test code = 6964806457) 26 mg/dL 5-60 Lab Interpretation (test cod e = 73622-0) [facility]normal [facility] (00020)(TOTAL CHOLESTEROL, TRIGLYCERIDES, HDL)2022-10-05 16:54:48* Test Item Value Reference Range Interpretation Comme nts CHOL (test code = 8430679390) 183 mg/dL 120-200 HDL (test code = 4764483947) 40 mg/dL >=50 L HDLC RATIO (test code = 4164551062) 4.6 <=4.5 H TRIG (test code = 2319708772) 128 mg/dL 30-170 LDL CHOL (test code = 93127-2) 117 mg/dL <=160 VLDL (test code = 0308496535) 26 mg/dL 5-60 Lab Interpretation (test cod e = 34154-4) Abnormal [facility] (21091)(TOTAL CHOLESTEROL, TRIGLYCERIDES, HDL)2022-10-05 16:54:48* Test Item Value Reference Range Interpretation Comme nts CHOL (test code = 9070762610) 183 mg/dL 120-200 HDL (test code = 9519862192) 40 mg/dL >=50 L HDLC RATIO (test code = 3144248256) 4.6 <=4.5 H TRIG (test code = 4786953710) 128 mg/dL 30-170 LDL CHOL (test code = 65314-0) 117 mg/dL <=160 VLDL (test code = 1002766522) 26 mg/dL 5-60 Lab Interpretation (test cod e = 48965-7) Abnormal [facility] (76501)(TOTAL CHOLESTEROL, TRIGLYCERIDES, HDL)2022-10-05 16:54:48* Test Item Value Reference Range Interpretation Comme nts CHOL (test code = 6792420851) 183 mg/dL 120-200 HDL (test code = 5166170921) 40 mg/dL >=50 L HDLC RATIO (test code = 1188136703) 4.6 <=4.5 H TRIG (test code = 8146786535) 128 mg/dL 30-170 LDL CHOL (test code = 88765-2) 117 mg/dL <=160 VLDL (test code = 1014060941) 26 mg/dL 5-60 Lab Interpretation (test cod e = 53109-4) Abnormal [facility] (75629)(TOTAL CHOLESTEROL, TRIGLYCERIDES, HDL)2022-10-05 16:54:48* Test Item Value Reference Range Interpretation Comme nts CHOL (test code = 9261039388) 183 mg/dL 120-200 HDL (test code = 4190055303) 40 mg/dL >=50 L HDLC RATIO (test code = 7802752168) 4.6 <=4.5 H TRIG (test code = 4762633701) 128 mg/dL 30-170 LDL CHOL (test code = 86053-7) 117 mg/dL <=160 VLDL (test code = 3701237325) 26 mg/dL 5-60 Lab Interpretation (test cod e = 19896-9) Abnormal [facility] (A1C)2022-10-05 15:51:11* Test Item Value Reference Range Interpretation Comme nts HGB A1C (test code = 4548-4) 5.1 % 4.0-5.7 ZAINAB (test code = ZAINAB) Reference RangesNormal: <5.7%Prediabetes: 5.7 - 6.4%Diabetes: > 6.5% Lab Interpretation (test code = 29705-6) Normal [facility]A1C)2022-10-05 15:51:11* Test Item Value Reference Range Interpretation Comme nts HGB A1C (test code = 4548-4) 5.1 % 4.0-5.7 ZAINAB (test code = ZAINAB) Reference RangesNormal: <5.7%Prediabetes: 5.7 - 6.4%Diabetes: > 6.5% Lab Interpretation (test code = 56131-4) [facility] 15:51:11* Test Item Value Reference Range Interpretation Comme nts HGB A1C (test code = 4548-4) 5.1 % 4.0-5.7 ZAINAB (test code = ZAINAB) Reference RangesNormal: <5.7%Prediabetes: 5.7 - 6.4%Diabetes: > 6.5% Lab Interpretation (test code = 41320-3) [facility]22-[facility]-05 15:51:11* Test Item Value Reference Range Interpretation Comme nts HGB A1C (test code = 4548-4) 5.1 % 4.0-5.7 ZAINAB (test code = ZAINAB) Reference RangesNormal: <5.7%Prediabetes: 5.7 - 6.4%Diabetes: > 6.5% Lab Interpretation (test code = 75986-1) [facility]22-[facility]-05 15:51:11* Test Item Value Reference Range Interpretation Comme nts HGB A1C (test code = 4548-4) 5.1 % 4.0-5.7 ZAINAB (test code = ZAINAB) Reference RangesNormal: <5.7%Prediabetes: 5.7 - 6.4%Diabetes: > 6.5% Lab Interpretation (test code = 17111-0) [facility]22-[facility]-05 15:51:11* Test Item Value Reference Range Interpretation Comme nts HGB A1C (test code = 4548-4) 5.1 % 4.0-5.7 ZAINAB (test code = ZAINAB) Reference RangesNormal: <5.7%Prediabetes: 5.7 - 6.4%Diabetes: > 6.5% Lab Interpretation (test code = 34889-3) [facility]22-[facility]-05 15:51:11* Test Item Value Reference Range Interpretation Comme nts HGB A1C (test code = 4548-4) 5.1 % 4.0-5.7 ZAINAB (test code = ZAINAB) Reference RangesNormal: <5.7%Prediabetes: 5.7 - 6.4%Diabetes: > 6.5% Lab Interpretation (test code = 70804-6) [facility]22-10-05 15:51:11* Test Item Value Reference Range Interpretation Comme nts HGB A1C (test code = 4548-4) 5.1 % 4.0-5.7 ZAINAB (test code = ZAINAB) Reference RangesNormal: <5.7%Prediabetes: 5.7 - 6.4%Diabetes: > 6.5% Lab Interpretation (test code = 55386-4) [facility]22-10-05 15:51:11* Test Item Value Reference Range Interpretation Comme nts HGB A1C (test code = 4548-4) 5.1 % 4.0-5.7 ZAINAB (test code = ZAINAB) Reference RangesNormal: <5.7%Prediabetes: 5.7 - 6.4%Diabetes: > 6.5% Lab Interpretation (test code = 11290-4) [facility]22-10-05 15:51:11* Test Item Value Reference Range Interpretation Comme nts HGB A1C (test code = 4548-4) 5.1 % 4.0-5.7 ZAINAB (test code = ZAINAB) Reference RangesNormal: <5.7%Prediabetes: 5.7 - 6.4%Diabetes: > 6.5% Lab Interpretation (test code = 80237-6) [facility]22-10-05 15:51:11* Test Item Value Reference Range Interpretation Comme nts HGB A1C (test code = 4548-4) 5.1 % 4.0-5.7 ZAINAB (test code = ZAINAB) Reference RangesNormal: <5.7%Prediabetes: 5.7 - 6.4%Diabetes: > 6.5% Lab Interpretation (test code = 17420-4) [facility]2022-10-05 15:51:11* Test Item Value Reference Range Interpretation Comme nts HGB A1C (test code = 4548-4) 5.1 % 4.0-5.7 ZAINAB (test code = ZAINAB) Reference RangesNormal: <5.7%Prediabetes: 5.7 - 6.4%Diabetes: > 6.5% Lab Interpretation (test code = 60333-1) Normal [facility]2022-10-05 15:51:11* Test Item Value Reference Range Interpretation Comme nts HGB A1C (test code = 4548-4) 5.1 % 4.0-5.7 ZAINAB (test code = ZAINAB) Reference RangesNormal: <5.7%Prediabetes: 5.7 - 6.4%Diabetes: > 6.5% Lab Interpretation (test code = 28671-0) Normal [facility]2022-10-05 15:51:11* Test Item Value Reference Range Interpretation Comme nts HGB A1C (test code = 4548-4) 5.1 % 4.0-5.7 ZAINAB (test code = ZAINAB) Reference RangesNormal: <5.7%Prediabetes: 5.7 - 6.4%Diabetes: > 6.5% Lab Interpretation (test code = 03227-1) [facility] [id number] 15:20:32* Test Item Value Reference Range Interpretation [...] g/dL 31.6-35.1 L RDW-SD (test code = 88758-6) 47.8 fL 39.0-49.9 RDW-CV (test code = 788-0) 18.0 % 12.0-15.5 H PLT (test code = 777-3) 296 See_Comment [Automated messa ge] The system which generated this result transmitted reference range: 166 - 358 10*3/?L. The reference range was not used to interpret this result as normal/abnormal. MPV (test code = 10389-2) 10.7 fL 9.5-12.9 NRBC/100 WBC (test code = 1752231682) 0.0 See_Comment [Automated i-drive ssage] The system which generated this result transmitted reference range: 0.0 - 10.0 /100 WBCs. The reference range was not used to interpret this result as normal/abnormal. NRBC x10^3 (test code = 0277500719) See_Comment [Automated messa ge] The system which generated this result transmitted reference range: 10*3/?L. The reference range was not used to interpret this result as normal/abnormal. GRAN MAT (NEUT) % (test code = 770-8) 70.0 % IMM GRAN % (test code = 4800288099) 0.40 % LYMPH % (test code = 736-9) 18.7 % MONO % (test code = 5905-5) 5.7 % EOS % (test code = 713-8) 4.5 % BASO % (test code = 706-2) 0.7 % GRAN MAT x10^3(ANC) (test code = 3426646044) 4.66 10*3/uL 1.88-7.09 IMM GRAN x10^3 (test code = 0285072064) 0.03 10*3/uL 0.00-0.06 LYMPH x10^3 (test code = 731-0) 1.25 10*3/uL 1.32-3.29 L MONO x10^3 (test code = 742-7) 0.38 10*3/uL 0.33-0.92 EOS x10^3 (test code = 711-2) 0.30 10*3/uL 0.03-0.39 BASO x10^3 (test code = 704-7) 0.05 10*3/uL 0.01-0.07 Lab Interpretation (test code = 00796-5) Abnormal [facility] acute hospital WITH [id number] 15:20:32* Test Item Value Reference Range Interpretation Comme nts WBC (test code = 6690-2) 6.67 See_Comment [Automated [employer] ge] The system which generated this result transmitted reference range: 4.30 - 11.10 10*3/?L. The reference range was not used to interpret this result as normal/abnormal. RBC (test code = 789-8) 4.04 See_Comment [Automated [employer] ge] The system which generated this result [...] g/dL 31.6-35.1 L RDW-SD (test code = 58118-9) 47.8 fL 39.0-49.9 RDW-CV (test code = 788-0) 18.0 % 12.0-15.5 H PLT (test code = 777-3) 296 See_Comment [Automated messa ge] The system which generated this result transmitted reference range: 166 - 358 10*3/?L. The reference range was not used to interpret this result as normal/abnormal. MPV (test code = 93859-2) 10.7 fL 9.5-12.9 NRBC/100 WBC (test code = 3177604449) 0.0 See_Comment [Automated me ssage] The system which generated this result transmitted reference range: 0.0 - 10.0 /100 WBCs. The reference range was not used to interpret this result as normal/abnormal. NRBC x10^3 (test code = 6849622483) See_Comment [Automated messa ge] The system which generated this result transmitted reference range: 10*3/?L. The reference range was not used to interpret this result as normal/abnormal. GRAN MAT (NEUT) % (test code = 770-8) 70.0 % IMM GRAN % (test code = 2605498650) 0.40 % LYMPH % (test code = 736-9) 18.7 % MONO % (test code = 5905-5) 5.7 % EOS % (test code = 713-8) 4.5 % BASO % (test code = 706-2) 0.7 % GRAN MAT x10^3(ANC) (test code = 5366993518) 4.66 10*3/uL 1.88-7.09 IMM GRAN x10^3 (test code = 9802768331) 0.03 10*3/uL 0.00-0.06 LYMPH x10^3 (test code = 731-0) 1.25 10*3/uL 1.32-3.29 L MONO x10^3 (test code = 742-7) 0.38 10*3/uL 0.33-0.92 EOS x10^3 (test code = 711-2) 0.30 10*3/uL 0.03-0.39 BASO x10^3 (test code = 704-7) 0.05 10*3/uL 0.01-0.07 Lab Interpretation (test code = 04051-8) Abnormal General acute hospital WITH [id number] 15:20:32* Test Item Value Reference Range Interpretation [...] g/dL 31.6-35.1 L RDW-SD (test code = 13250-2) 47.8 fL 39.0-49.9 RDW-CV (test code = 788-0) 18.0 % 12.0-15.5 H PLT (test code = 777-3) 296 See_Comment [Forgamea ge] The system which generated this result transmitted reference range: 166 - 358 10*3/?L. The reference range was not used to interpret this result as normal/abnormal. MPV (test code = 76335-8) 10.7 fL 9.5-12.9 NRBC/100 WBC (test code = 8056247331) 0.0 See_Comment [Automated i-drive ssage] The system which generated this result transmitted reference range: 0.0 - 10.0 /100 WBCs. The reference range was not used to interpret this result as normal/abnormal. NRBC x10^3 (test code = 1438676799) See_Comment [Automated [employer] Elements[employer] ge] The system which generated this result transmitted reference range: 10*3/?L. The reference range was not used to interpret this result as normal/abnormal. GRAN MAT (NEUT) % (test code = 770-8) 70.0 % IMM GRAN % (test code = 0401173412) 0.40 % LYMPH % (test code = 736-9) 18.7 % MONO % (test code = 5905-5) 5.7 % EOS % (test code = 713-8) 4.5 % BASO % (test code = 706-2) 0.7 % GRAN MAT x10^3(ANC) (test code = 0432196989) 4.66 10*3/uL 1.88-7.09 IMM GRAN x10^3 (test code = 0690953158) 0.03 10*3/uL 0.00-0.06 LYMPH x10^3 (test code = 731-0) 1.25 10*3/uL 1.32-3.29 L MONO x10^3 (test code = 742-7) 0.38 10*3/uL 0.33-0.92 EOS x10^3 (test code = 711-2) 0.30 10*3/uL 0.03-0.39 BASO x10^3 (test code = 704-7) 0.05 10*3/uL 0.01-0.07 Lab Interpretation (test code = 48573-6) Abnormal [facility]2023-06-14 17:27:33* Test Item Value Reference Range Interpretation Comme nts [place] (test code = 5072079870) 0.3 mmol/L 0.6-1.2 L ZAINAB (test code = ZAINAB) Toxic Range: ? Greater than 1.2 mmol/L Lab Interpretation (test code = 79729-8) Abnormal [facility]2023-06-14 17:27:33* Test Item Value Reference Range Interpretation Comme nts [place] (test code = 0905947208) 0.3 mmol/L 0.6-1.2 L ZAINAB (test code = ZAINAB) Toxic Range: ? Greater than 1.2 mmol/L Lab Interpretation (test code = 33886-1) Abnormal [facility]2023-06-14 17:27:33* Test Item Value Reference Range Interpretation Comme nts [place] (test code = 6164342222) 0.3 mmol/L 0.6-1.2 L ZAINAB (test code = ZAINAB) Toxic Range: ? Greater than 1.2 mmol/L Lab Interpretation (test code = 61572-9) Abnormal [facility]2023-06-14 17:27:33* Test Item Value Reference Range Interpretation Comme nts [place] (test code = 2927485234) 0.3 mmol/L 0.6-1.2 L ZAINAB (test code = ZAINAB) Toxic Range: ? Greater than 1.2 mmol/L Lab Interpretation (test code = 38436-9) Abnormal [facility]2023-06-14 17:27:33* Test Item Value Reference Range Interpretation Comme nts [place] (test code = 3146314097) 0.3 mmol/L 0.6-1.2 L ZAINAB (test code = ZAINAB) Toxic Range: ? Greater than 1.2 mmol/L Lab Interpretation (test code = 19478-2) Abnormal [facility]2023-06-14 17:27:33* Test Item Value Reference Range Interpretation Comme nts [place] (test code = 9908051666) 0.3 mmol/L 0.6-1.2 L ZAINAB (test code = ZAINAB) Toxic Range: ? Greater than 1.2 mmol/L Lab Interpretation (test code = 27718-4) Abnormal [address]06-14 17:27:33* Test Item Value Reference Range Interpretation Comme nts [place] (test code = 4444924078) 0.3 mmol/L 0.6-1.2 L ZAINAB (test code = ZAINAB) Toxic Range: ? Greater than 1.2 mmol/L Lab Interpretation (test code = 90386-2) Abnormal [facility]2023-06-14 17:27:33* Test Item Value Reference Range Interpretation Comme nts [place] (test code = 8643250093) 0.3 mmol/L 0.6-1.2 L ZAINAB (test code = ZAINAB) Toxic Range: ? Greater than 1.2 mmol/L Lab Interpretation (test code = 05204-3) Abnormal [address]06-14 17:27:33* Test Item Value Reference Range Interpretation Comme nts [place] (test code = 2095062149) 0.3 mmol/L 0.6-1.2 L ZAINAB (test code = ZAINAB) Toxic Range: ? Greater than 1.2 mmol/L Lab Interpretation (test code = 24968-8) Abnormal [facility]2023-06-14 17:27:33* Test Item Value Reference Range Interpretation Comme nts [place] (test code = 5630488197) 0.3 mmol/L 0.6-1.2 L ZAINAB (test code = ZAINAB) Toxic Range: ? Greater than 1.2 mmol/L Lab Interpretation (test code = 51202-5) Abnormal [facility]2023-06-14 17:27:33* Test Item Value Reference Range Interpretation Comme nts [place] (test code = 2762150985) 0.3 mmol/L 0.6-1.2 L ZAINAB (test code = ZAINAB) Toxic Range: ? Greater than 1.2 mmol/L Lab Interpretation (test code = 33799-5) Abnormal [facility]2023-06-14 17:27:33* Test Item Value Reference Range Interpretation Comme nts [place] (test code = 9619556958) 0.3 mmol/L 0.6-1.2 L ZAINAB (test code = ZAINAB) Toxic Range: ? Greater than 1.2 mmol/L Lab Interpretation (test code = 35513-9) Abnormal General acute hospital W/AUTO DIFF WITH [id number] 06:12:05* Test Item Value Reference Range Interpretation [...] = 1065) 0.0 /100 WBC'S See_Comment [Automated Cloud Elementsa ge] The system which generated this result [...] 0.00-0.10 ABS NUCLEATED RBCS (test code = 24463) 0.00 K/UL 0.00-0.11 RETICULOCYTE WITH [id number] 06:12:05* Test Item Value Reference Range Interpretation Comme nts RETICULOCYTE COUNT (test code = 1018) 2.50 % 0.80-2.40 H ABSOLUTE RETICULOCYTE (test code = 21454) 103.3 K/UL 32.0-105.0 [facility] has important pathology staff changes effective 04/12/2022. New pathology staff will provide uninterrupted, excellent patient care and clinical consultation. See URL: [email or web address]. UNLESS OTHERWISE INDICATED, ALL TESTING PERFORMED AT [facility] [address] [place] [address] LEAF SIZE PICKER: CHARLA HERNANDEZ M.D. CLIA NUMBER [id number] [facility] [place]. [id number] YAZMIN NON-REFLEX TO [id number] 05:55:49* Test Item Value Reference Range Interpretation Comme nts ANTI-NUCLEAR ANTIBODIES (test code = 3506) NEGATIVE NEGATIVE METHODOLOGY IS I NDIRECT IMMUNOFLUORESCENT ASSAY (IFA) WITH HUMAN EPITHELIAL (HEP-2) CELL LINE SUBSTRATE. FOLATE, [id number] 12:42:51* Test Item Value Reference Range Interpretation [...] . . . NG/ML >1504 TSH, THIRD [id number] 11:05:54* Test Item Value Reference Range Interpretation Comme [facility] TSH, THIRD GENERATION (test code = 2821) 1.310 UIU/ML 0.400-4.100 VITAMIN [id number] 11:05:54* Test Item Value Reference Range Interpretation Comme [facility] VITAMIN B-12 (test code = 2840) 436 PG/ML 200-950 VITAMIN D, 25 [id number] 11:03:45* Test Item Value Reference Range Interpretation Comme [facility] VITAMIN D, 25 OH (test code [...] . . . . . NG/ML 30-100 [facility] has important pathology staff changes effective 04/12/2022. New pathology staff will provide uninterrupted, excellent patient care and clinical consultation. See URL: [email or web address]. UNLESS OTHERWISE INDICATED, ALL TESTING PERFORMED AT [facility] [address] [place] [address] LEAF SIZE PICKER: CHARLA HERNANDEZ M.D. CLIA NUMBER [id number] [facility] [place]. [id number] URIC [id number] 05:28:57* Test Item Value Reference Range Interpretation Comme nts URIC ACID (test code = 2233) 6.7 MG/DL 2.7-6.1 H COMPREHENSIVE METABOLIC [id number] 05:28:57* Test Item Value Reference Range Interpretation Comme nts GLUCOSE (test code = 2216) 103 MG/DL 70-99 H BUN (test code = 2207) 9 MG/DL 6-20 CREATININE (test code = 2214) 0.72 MG/DL 0.60-1.30 eGFR (2020 CKD-EPI) (test code = 84102) 106 ML/MIN/1.73 >60 CALC BUN/CREAT (test code = 2235) 13 RATIO 6-28 SODIUM (test code = 223) 139 MEQ/L 133-146 POTASSIUM (test code = [...] 1.9-3.7 CALC A/G RATIO (test code = 223) 2.1 RATIO 1.0-2.6 BILIRUBIN, TOTAL (test code = 220) <0.2 MG/DL See_Comment [Automated me ssage] The system which generated this result transmitted reference range: <=1.2. The reference range was not used to interpret this result as normal/abnormal. ALKALINE PHOSPHATASE (test code = 220) 129 U/L 40-115 H AST (test code = 2218) 21 U/L 9-40 ALT (test code = 2219) 26 U/L 5-40 LIPID [id number] 05:28:57* Test Item Value Reference Range Interpretation [...] SPECIMENS. FOR MOREINFORMATION, SEE CLIENT ANNOUNCEMENT AT [email or web address] [email or web address] LDL/HDL (test code = 2238) 3.04 RATIO <3.22 HEMOGLOBIN [id number] 02:54:46* Test Item Value Reference Range Interpretation Comme nts HEMOGLOBIN A1c (test code = 19042) 5.6 % 4.2-5.6 CBC W/AUTO DIFF WITH [id number] 01:58:18* Test Item Value Reference Range Interpretation [...] = 1065) 0.0 /100 WBC'S See_Comment [Automated Cloud Elementsa ge] The system which generated this result [...] 0.00-0.10 ABS NUCLEATED RBCS (test code = 82158) 0.00 K/UL 0.00-0.11 [id number] 20:05:22* Test Item Value Reference Range Interpretation Comme nts [place] (test code = 4865139157) 1.1 mmol/L 0.6-1.2 ZAINAB (test code = ZAINAB) Toxic Range: ? Greater than 1.2 mmol/L Lab Interpretation (test code = 90777-4) [facility]2023-01-04 20:05:22* Test Item Value Reference Range Interpretation Comme nts [place] (test code = 8781457355) 1.1 mmol/L 0.6-1.2 ZAINAB (test code = ZAINAB) Toxic Range: ? Greater than 1.2 mmol/L Lab Interpretation (test code = 91249-4) [facility]2023-01-04 20:05:22* Test Item Value Reference Range Interpretation Comme nts [place] (test code = 8760913483) 1.1 mmol/L 0.6-1.2 ZAINAB (test code = ZAINAB) Toxic Range: ? Greater than 1.2 mmol/L Lab Interpretation (test code = 15555-7) [facility]2023-01-04 20:05:22* Test Item Value Reference Range Interpretation Comme nts [place] (test code = 7826682114) 1.1 mmol/L 0.6-1.2 ZAINAB (test code = ZAINAB) Toxic Range: ? Greater than 1.2 mmol/L Lab Interpretation (test code = 53153-1) [address]01-04 20:05:22* Test Item Value Reference Range Interpretation Comme nts [place] (test code = 2981254281) 1.1 mmol/L 0.6-1.2 ZAINAB (test code = ZAINAB) Toxic Range: ? Greater than 1.2 mmol/L Lab Interpretation (test code = 98491-1) [address]01-04 20:05:22* Test Item Value Reference Range Interpretation Comme nts [place] (test code = 0798484105) 1.1 mmol/L 0.6-1.2 ZAINAB (test code = ZAINAB) Toxic Range: ? Greater than 1.2 mmol/L Lab Interpretation (test code = 11002-7) [address]01-04 20:05:22* Test Item Value Reference Range Interpretation Comme nts [place] (test code = 4420200094) 1.1 mmol/L 0.6-1.2 ZAINAB (test code = ZAINAB) Toxic Range: ? Greater than 1.2 mmol/L Lab Interpretation (test code = 63678-6) [address]01[address]04 20:05:22* Test Item Value Reference Range Interpretation Comme nts [place] (test code = 1217183944) 1.1 mmol/L 0.6-1.2 ZAINAB (test code = ZAINAB) Toxic Range: ? Greater than 1.2 mmol/L Lab Interpretation (test code = 90794-1) [address]01[address]04 20:05:22* Test Item Value Reference Range Interpretation Comme nts [place] (test code = 8322809231) 1.1 mmol/L 0.6-1.2 ZAINAB (test code = ZAINAB) Toxic Range: ? Greater than 1.2 mmol/L Lab Interpretation (test code = 66398-5) [address]01[address]04 20:05:22* Test Item Value Reference Range Interpretation Comme nts [place] (test code = 5947823115) 1.1 mmol/L 0.6-1.2 ZAINAB (test code = ZAINAB) Toxic Range: ? Greater than 1.2 mmol/L Lab Interpretation (test code = 98170-0) [facility]2018-07-20 07:27:00* Test Item [...] mg/dL VERY HIGH.........>/= 190 mg/dL Comments to [employer] Specialist: ADD TO AM LABSLIPID PROFILE (CORONARY RISK)2018-07-20 07:17:00* Test Item Value Reference Range Interpretation Comme [facility] TRIGLYCERIDES (test code = TRIG) 143 MG/DL TRIGLYCERIDES REFERENCE RANGE:Normal: <150 mg/dLBorderline High: 150-199 mg/dLHigh: 200-499 mg/dLVery High: >=500 mg/dL CHOLESTEROL (test code = CHOL) 190 MG/DL <200 HDL CHOLESTEROL (test code = HDL) 41 MG/DL 40-59 N LIPOPROTEIN LDL (test code = LDL) MG/DL 0-99 Comments to [employer]ist: ADD TO AM LABSPROTHROMBIN [id number] 06:24:00* Test Item Value Reference Range Interpretation [...] systemic embolism. 3.0 - 4.5 Comments to [employer]ist: NURSE WILL BRING SPECIMEN TO LABPTT ACTIVATED 2018-07-20 06:24:00* Test Item Value Reference Range Interpretation Comme nts PTT ACTIVATED (test code = APTT) 29.3 SECONDS 22.0-33.0 N Comments to [employer]ist: NURSE WILL BRING SPECIMEN TO LABBASIC METABOLIC [...] CA) 9.6 MG/DL 8.4-10.2 N Comments to [employer]ist: NURSE WILL BRING SPECIMEN TO LAB Comments to [employer]ist: NURSE WILL BRING SPECIMEN TO [id number] 06:13:00* Test Item Value Reference Range Interpretation Comme nts MAGNESIUM (test code = MAG) 2.2 MG/DL 1.6-2.3 N Comments to [employer]ist: NURSE WILL BRING SPECIMEN TO LAB Comments to [employer]ist: NURSE WILL BRING SPECIMEN TO LABCBC W/AUTO [id number] 06:02:00 * Test Item Value Reference Range [...] N Notes Date/Time Note Provider Source 2023-08-08 15:01:26 Order for Monoferric Infusion was faxed to [facility], fax # fax- [phone]. Fax confirmed as received. I called patient to inform her that order was sent. Kath Westbrook RN [facility] 2023-08-08 12:08:22 I ordered IV iron if you dont mind faxing it. Thank you! [facility] 2023-08-02 15:54:54 Yes if you can send over the last infusion order we sent again to [facility]. Otherwise we can do it when in back next week T [facility] 2023-07-30 15:40:16 Patient called stating that her GI provider said he would order an Iron infusion for patient one more time, but that she would have to follow-up with hematology from now on for iron infusion orders. Patient would like to have the order placed and the infusion done at [facility] as before. There is no mention of this in BAKARI note. Kath Westbrook RN [facility] 2023-07-02 12:20:48 I called patient and explained that an [...] PSS schedule patient with a different GI provider. Appointment with Christiana Cabrera offered this , 07/04/23. Patient unable to make it and will keep appointment with Dr. Cordero on 07/26/23. Kath Westbrook RN [facility] 2023-07-02 10:35:15 Pt is requesting orders for an Iron [...] constantly declining. Pt was life flight to [facility] recently due to a stroke. Pls advise. Vega Gregory [facility] 2023-06-08 02:18:19 Rn went over poc and discharge teaching with pt prior to departure. Iv discontinued and discharge packet went over with pt. Pt verbalizes understanding of education and medications. Pt states that no belogings were left in room. Pt and family departed to [facility]. Pt using ed wheelchair Lizandro Bah RN [facility] 2023-06-08 01:38:45 Patient currently sitting up, drinking water. Patient family to assist patient in changing clothes and then to perform walk test. Patient pending walk test and results at this time. Kiley Darling RN [facility] 2023-06-08 01:29:14 Dr. Pabon at bedside T [facility] 2023-06-08 00:00:00 Patient currently resting in ED stretcher, accompanied by visitors at this time. Patient awaiting clinical sobriety for d/c. NAD noted, VSS, RR e/u, bed locked in lowest position with side rails elevated x 2. Patient family denies additional needs at this time, will notify staff if needs anything. [facility] 2023-06-07 22:44:51 Pt straight cath x2 RN per need for UA, sterile protocol utilized. Prior to procedure, RN x2 explained procedure and [...] to patient to which the patient remained silent. Pt remains on serial VS and cardiac monitoring. Bed locked lowered, bed rails up locked per fall risk. Will cont to assess and tx per plan of care Angela Larsen RN [facility] 2023-06-07 22:30:00 Report taken from Armand PATEL. Patient name [...] remains awaiting urine sample collection at this time. Patient resting in ED stretcher, NAD noted. Patient remains connected to continuous BP, SpO2, and cardiac monitoring. Patient remains responsive to vocal stimuli, NAD noted, VSS, RR e/u. See neuro focused assessment. T [facility] 2023-06-07 22:06:00 STROKE ALERT CANCELLED per neuro Paged out @ 2206 T [facility] 2023-06-07 22:04:19 Neuro resident verbalizes he is canceling the stroke alert. T Puneet Coker RN [facility] 2023-06-07 22:04:00 Stroke orders cancelled per neurology faculty and Dr. Pabon at this time. [facility] 2023-06-07 21:54:[address] Reflexes intact, will not follow commands or speak, however. [facility] 2023-06-07 21:40:[address] stretcher, pt connected to serial VS and cardiac monitoring. Neuro resident in CT In CT, Pt appeared to be selectively following commands and opening eyes. Pt was addressed in both [place] and [place], yet did not answer questions verbally nor with any head shakes/ nods. Pt resp e/u on RA w equal chest rise and fall. Skin warm dry approp tone. When pt opened eyes on command, PERRLA 4mm. Labs drawn. T [facility] 2023-06-07 21:39:01 Shivani Schuler is a 47 year old female presents to ED via Life flight with CC of stroke like symptoms onset 1999. Flight crew reports that on scene pt was agressively shaking and resposive to questions, pt then became still and no longer responded to assessment, during transport no sign of seizure activity. Pt at triage responds to pain, VSWNL, NAD noted. Pt to CT [facility] 2023-06-07 21:35:00 Shivani Schuler is a 47 year old female who presents from home([place]) via Life Flight after pt's daughter heard [...] back and forth and squinting eyes shut. [facility] 2023-06-07 21:32:00 [facility] Emergency Department Note Patient Name: Shivani Schuler Date of : 1975 47 year old female Treatment Room: [address] [place] [address] Primary Care Physician: JAE Holloway Patient Escorted by: Self [9] Mode of Arrival: [facility] - [facility] [16] EMS Treatment Prior to ED Arrival: [employer] treatment: None Travel and Exposure Screening: Symptoms Does patient have any of these symptoms?: (not recorded) Exposure Screening Has patient had contact with someone with a communicable disease in the last month?: (not recorded) Diseases exposed to:: (not recorded) Is Patient ?: (not recorded) Exposure Date: (not recorded) Chief Complaint: Chief Complaint Patient presents with STROKE History of Present Illness: Patient here as a stroke activation. EMS called by family member at home due to patient screaming and becoming unresponsive on the floor at home. Patient was not moving any extremities and not following commands. VSS. In NAD. Hx of Bipolar, anxiety and schizoaffective disorder. Patient is not talking to staff and not following any commands. Past Medical History/Immunizations: No past medical history on file. Tetanus received in last 5 years: Unable to assess Allergies: Allergies Allergen Reactions Sulfa (Sulfonamide Antibiotics) Hives Past Social History: Tobacco Use Never smoked or used smokeless tobacco. Past Surgical History: Past Surgical History: Procedure Laterality Date COLONOSCOPY N/A 11/13/2022 Surgeon: Dominic Keita MD; Location: ENDOSCOPY ([facility]) OR LOCATION ESOPHAGOGASTRODUODENOSCOPY N/A 11/13/2022 Surgeon: Dominic Keita MD; Location: ENDOSCOPY ([facility]) OR LOCATION Review of Systems: Review of Systems Constitutional: Negative for activity change, appetite change, chills, diaphoresis, fatigue, fever, unexpected weight change, weight gain and weight loss. HENT: Negative for congestion, dental problem, drooling, ear discharge, ear pain, facial swelling, hearing loss, mouth sores, nosebleeds, postnasal drip, rhinorrhea, sinus pressure, sneezing, sore throat, tinnitus, trouble swallowing and voice change. Eyes: Negative for photophobia, pain, discharge, redness, itching and visual disturbance. Respiratory: Negative for apnea, cough, choking, chest tightness, shortness of breath, wheezing and stridor. Breasts: Negative for discharge, mass, pain and unequal size. Cardiovascular: Negative for chest pain, palpitations and leg swelling. Gastrointestinal: Negative for abdominal distention, abdominal pain, anal bleeding, blood in stool, constipation, diarrhea, nausea, rectal pain and vomiting. Genitourinary: Negative for bladder incontinence, dysuria, urgency, polyuria, frequency, hematuria, flank pain, decreased urine volume, vaginal bleeding, vaginal discharge, enuresis, difficulty urinating, genital sores, vaginal pain, menstrual problem, pelvic pain, dyspareunia and nocturia. Musculoskeletal: Negative for arthralgias, back pain, gait problem, joint swelling, myalgias, neck pain and neck stiffness. Skin: Negative for color change, pallor, rash and wound. Neurological: Negative for dizziness, tremors, seizures, syncope, facial asymmetry, speech difficulty, weakness, light-headedness, numbness and headaches. Psychiatric/Behavioral: Negative for agitation, behavioral problems, confusion, decreased concentration, dysphoric mood, hallucinations, self-injury, sleep disturbance and suicidal ideas. The patient is not nervous/anxious and is not hyperactive. + catatonia Hematological: Negative for adenopathy, cold intolerance and heat intolerance. Does not bruise/bleed easily. Endocrine: Negative for goiter, hair loss, cold intolerance, heat intolerance, polydipsia, polyphagia, polyuria, weight gain and weight loss. Physical Exam: ED Triage Vitals Weight 06/07/232133 136.1 kg (300 lb) Actual or estimated 06/07/232133 Estimated by patient/family report Height 06/07/232133 1.676 m (5' 6") BP 06/07/232134 111/72 Pulse 06/07/232134 69 Resp 06/07/232134 20 Temp 06/07/232134 36.1 ?C (97 ?F) Temp source 06/07/232134 Axillary SpO2 06/07/232134 99 % Measured on 06/07/232134 Room air Physical Exam Vitals and nursing note reviewed. Constitutional: General: She is not in acute distress. Appearance: Normal appearance. She is obese. She is not ill-appearing, toxic-appearing or diaphoretic. HENT: Head: Normocephalic and atraumatic. Right Ear: Tympanic membrane and ear canal normal. There is no impacted cerumen. Left Ear: Tympanic membrane and ear canal normal. There is no impacted cerumen. Nose: Nose normal. No congestion or rhinorrhea. Mouth/Throat: Mouth: Mucous membranes are moist. Pharynx: Oropharynx is clear. No oropharyngeal exudate or posterior oropharyngeal erythema. Eyes: General: No scleral icterus. Right eye: No discharge. Left eye: No discharge. Extraocular Movements: Extraocular movements intact. Conjunctiva/sclera: Conjunctivae normal. Pupils: Pupils are equal, round, and reactive to light. Neck: Vascular: No carotid bruit. Cardiovascular: Rate and Rhythm: Normal rate and regular rhythm. Pulses: Normal pulses. Heart sounds: Normal heart sounds. No murmur heard. No friction rub. No gallop. Pulmonary: Effort: Pulmonary effort is normal. No respiratory distress. Breath sounds: Normal breath sounds. No stridor. No wheezing, rhonchi or rales. Chest: Chest wall: No tenderness. Abdominal: General: Abdomen is flat. Bowel sounds are normal. There is no distension. Palpations: Abdomen is soft. There is no mass. Tenderness: There is no abdominal tenderness. There is no right CVA tenderness, left CVA tenderness, guarding or rebound. Hernia: No hernia is present. Musculoskeletal: General: No swelling, tenderness, deformity or signs of injury. Normal range of motion. Cervical back: Normal range of motion and neck supple. No rigidity or tenderness. Right lower leg: No edema. Left lower leg: No edema. Lymphadenopathy: Cervical: No cervical adenopathy. Skin: General: Skin is warm and dry. Capillary Refill: Capillary refill takes less than 2 seconds. Coloration: Skin is not jaundiced or pale. Findings: No bruising, erythema, lesion or rash. Neurological: General: No focal deficit present. Mental Status: She is oriented to person, place, and time. Mental status is at baseline. Cranial Nerves: No cranial nerve deficit. Sensory: No sensory deficit. Motor: No weakness. Coordination: Coordination normal. Gait: Gait normal. Deep Tendon Reflexes: Reflexes normal. Psychiatric: Comments: + catatonic Radiology: CT ACUTE STROKE ANGIOGRAM HEAD Preliminary Result CT STROKE ANGIOGRAM HEAD, CT STROKE ANGIOGRAM NECK HISTORY: 47 years old, Female with Neuro deficit, acute, stroke suspected Rad: please obtain POCT creatinine prior to CTA head/neck TECHNIQUE: CTA of the head and neck was performed with IV contrast. MIP reconstructions were performed. COMPARISON: None. FINDINGS: CTA NECK: Aortic arch and major vessels: There is a three-vessel aortic arch. The vessels originating from the arch are patent. Carotid arteries: Both common carotid arteries are patent. The carotid bifurcations and distal cervical ICA segments are widely patent. Vertebral arteries: The vertebral arteries originate from the subclavian arteries and patent bilaterally. CTA HEAD: The origins of both posterior-inferior cerebellar arteries are identified. The basilar artery is normal in caliber. The superior cerebellar arteries are patent. The [employer] are patent bilaterally. No sizable posterior communicating arteries are seen. The petrous, cavernous and supraclinoid internal carotid segments are widely patent. The GIBSON and MCA are patent bilaterally. An anterior communicating artery is seen. The dural venous sinuses are opacified and unremarkable. IMPRESSION No large vessel occlusion or high-grade stenosis of the head and neck arteries. Preliminary Report Dictated by Resident: Redd Samuel CT ACUTE STROKE ANGIOGRAM NECK Preliminary Result CT STROKE ANGIOGRAM HEAD, CT STROKE ANGIOGRAM NECK HISTORY: 47 years old, Female with Neuro deficit, acute, stroke suspected Rad: please obtain POCT creatinine prior to CTA head/neck TECHNIQUE: CTA of the head and neck was performed with IV contrast. MIP reconstructions were performed. COMPARISON: None. FINDINGS: CTA NECK: Aortic arch and major vessels: There is a three-vessel aortic arch. The vessels originating from the arch are patent. Carotid arteries: Both common carotid arteries are patent. The carotid bifurcations and distal cervical ICA segments are widely patent. Vertebral arteries: The vertebral arteries originate from the subclavian arteries and patent bilaterally. CTA HEAD: The origins of both posterior-inferior cerebellar arteries are identified. The basilar artery is normal in caliber. The superior cerebellar arteries are patent. The [employer] are patent bilaterally. No sizable posterior communicating arteries are seen. The petrous, cavernous and supraclinoid internal carotid segments are widely patent. The GIBSON and MCA are patent bilaterally. An anterior communicating artery is seen. The dural venous sinuses are opacified and unremarkable. IMPRESSION No large vessel occlusion or high-grade stenosis of the head and neck arteries. Preliminary Report Dictated by Resident: Redd Samuel CT ACUTE STROKE HEAD WO CONTRAST Preliminary Result EXAM: CT STROKE HEAD WO CONTRAST HISTORY: 47 years-old Female; Provided indication: Neuro deficit, acute, stroke suspected. Aggressively shaking followed by a period of nonresponsiveness. TECHNIQUE: Axial CT of the head was performed without intravenous contrast.Coronal and sagittal reformats were generated. COMPARISON: None FINDINGS: The ventricles and cerebral sulci are normal in caliber and configuration. No midline shift or pathological extra-axial fluid collection is present. The basal cisterns are unremarkable. No acute intracranial hemorrhage or significant mass effect is visualized. No parenchymal attenuation abnormality is seen. The sue-white matter differentiation is preserved. The mastoid air cells and visualized paranasal air sinuses are clear. The calvarium and central skull base are unremarkable. IMPRESSION Unremarkable CT head. Preliminary Report Dictated by Resident: Redd Samuel Lab Results: Lab Results POCT GLUCOSE(AGE >30DAYS) - Abnormal Result Value Ref Range POCT Glu (age>30days) 124 (*) 70 - 110 mg/dL CBC WITHOUT DIFF - Abnormal WBC 11.24 (*) 4.30 - 11.10 10*3/?L RBC 4.24 3.93 - 5.25 10*6/?L HGB 10.6 (*) 11.6 - 15.0 g/dL HCT 33.3 (*) 35.7 - 45.2 % MCH 25.0 (*) 25.9 - 32.8 pg MCV 78.5 (*) 80.6 - 95.5 fL MCHC 31.8 31.6 - 35.1 g/dL PLT 367 (*) 166 - 358 10*3/?L MPV 11.3 9.5 - 12.9 fL RDW-CV 15.4 12.0 - 15.5 % RDW-SD 43.8 39.0 - 49.9 fL NRBC x10 3 <0.01 10*3/?L NRBC/100 WBC 0.0 0.0 - 10.0 /100 WBCs IPF % BASIC METABOLIC PANEL (NA, K, CL, CO2, GLUCOSE, BUN, CREATININE, CA) - Abnormal NA 135 135 - 145 mmol/L K 4.3 3.5 - 5.0 mmol/L CL 103 98 - 108 mmol/L CO2 TOTAL 28 23 - 31 mmol/L AGAP 4 2 - 16 BUN 11 7 - 23 mg/dL GLUCOSE 120 (*) 70 - 110 mg/dL CREATININE 0.71 0.50 - 1.04 mg/dL CALCIUM 9.3 8.6 - 10.6 mg/dL eGFR 107.0 mL/min/1.73m2 URINALYSIS - Abnormal APPEARANCE Clear Clear COLOR Yellow Yellow PH 6.0 4.8 - 8.0 SP GRAVITY 1.058 (*) 1.003 - 1.030 GLU U QUAL Normal Normal BLOOD 1+ (*) Negative KETONES Negative Negative PROTEIN Negative Negative UROBILIN Normal Normal BILIRUBIN Negative Negative NITRITE Negative Negative LEUK VISHAL Negative Negative RBC/HPF 5 (*) 0 - 3 HPF WBC/HPF 2 0 - 5 HPF BACTERIA Negative Negative MUCOUS Slight (*) Negative LPF SQ EPITH 3 (*) <=2 HPF URINE DRUG (IMMUNOASSAY) - COMPREHENSIVE DRUG SCREEN W/O REFLEX - Abnormal AMPHET Negative Negative EMILIANA U Negative Negative BENZO U Negative Negative Cocaine Metabolite Negative Negative METHADONE Negative Negative OPIATES Negative Negative PCP Negative Negative THC Presumptive Positive (*) Negative PROTHROMBIN TIME / INR - Normal PROTIME PATIENT 10.4 10.1 - 12.6 Seconds INR 0.9 ACTIVATED PARTIAL THRMPLAS CIPRIANO - Normal APTT Patient 29 26 - 36 Seconds TROPONIN I - Normal TROPONIN I 0.003 <=0.034 ng/mL LITHIUM - Normal [place] 0.6 0.6 - 1.2 mmol/L ETHANOL ALCOHOL <10 mg/dL EXTRA TUBE LAV EKG: If EKG completed, see Procedure Note. Orders and Treatments: Orders Placed This Encounter Procedures CT ACUTE STROKE HEAD WO CONTRAST CT ACUTE STROKE ANGIOGRAM HEAD CT ACUTE STROKE ANGIOGRAM NECK POCT Glucose (Age >30 Days) - Code Stroke Prothrombin Time / INR - Code Stroke aPTT - Code Stroke CBC without Diff - Code Stroke Troponin I - Code Stroke Basic Metabolic Panel (NA, K, CL, CO2, Glucose, BUN, Creatinine, CA) - Code Stroke Urinalysis ETHANOL URINE DRUG (IMMUNOASSAY) - COMPREHENSIVE DRUG SCREEN W/O REFLEX [place] O2 Nasal Cannula Orders Placed This Encounter Medications NaCl 0.9% (NS) injection 5 mL iopamidol (ISOVUE 370-500 mL) injection 80 mL First Provider Eval: ED Events Date/Time Event User Comments 06/07/232147 Medical Screening Begins SIDNEY PABON DO -- 06/07/232147 First Provider Evaluation SIDNEY PABON DO -- ED COURSE Diagnosis/Impression as of 06/08/23 0135 Cerebrovascular accident (CVA), unspecified mechanism Procedures: Procedures MDM: Medical Decision Making Patient here as a stroke activation. EMS called by family member at home due to patient screaming and becoming unresponsive on the floor at home. Patient was not moving any extremities and not following commands. VSS. In NAD. Hx of Bipolar, anxiety and schizoaffective disorder. Patient is not talking to staff and not following any commands. Amount and/or Complexity of Data Reviewed Labs: ordered. Decision-making details documented in ED Course. Details: Labs WNL Radiology: ordered. Decision-making details documented in ED Course. Details: CT ACUTE STROKE ANGIOGRAM HEAD Performed: 06/07/232155 | Preliminary This result has not been signed. Information might be incomplete. Impression: No large vessel occlusion or high-grade stenosis of the head and neck arteries. Preliminary Report Dictated by Resident: Redd Samuel 06/07/232209 CT ACUTE STROKE ANGIOGRAM NECK Performed: 06/07/232155 | Preliminary This result has not been signed. Information might be incomplete. Impression: No large vessel occlusion or high-grade stenosis of the head and neck arteries. Preliminary Report Dictated by Resident: Redd Samuel 06/07/232152 CT ACUTE STROKE HEAD WO CONTRAST Performed: 06/07/232147 | Preliminary This result has not been signed. Information might be incomplete. Impression: Unremarkable CT head. Preliminary Report Dictated by Resident: Redd Samuel Discussion of management or test interpretation with external provider(s): Patient came in as a stroke activation. Neurology has since cancelled the stroke activation. Patient was in a brief catatonic state and now is out of it and is back to normal talking to family and drinking water. Denies SI or HI. Ok for discharge. Flowsheet Documentation: Scoring Tools: No data recorded Dx: Acute catatonia, resolved. Hx of bipolar and mood disorder. Disposition/Condition: Discharged home. Marysol Pabon D.O. Physician RTI Billing ID #[id number] Marysol Pabon DO 06/08/23 0136 Marysol Pabon DO 06/08/23 0147 [employer] [facility]AFF [facility] 2023-06-04 10:50:05 I called patient to ascertain what medication she is referring to that was Rxd but not received. No answer, I LVM with my call back number. Kath Westbrook RN [facility] 2023-05-14 11:48:54 Gastroenterolgy appt has been placed. Jessica Pang RN [facility] 2023-05-11 16:55:45 I called patient to follow-up from her [...] appointment with Dr. Boston for these symptoms. Kath Westbrook RN [facility] 2023-05-09 16:58:43 Pt called about her Iron infusion needed. GI provider requested patient's PCP follow up with this request. At initial visit, patient's GI provider did order Iron Infusion: 11/23/22: Order for MONOFERRIC infusion sent to [facility], fax # [phone]. Fax was confirmed as received. The above information will be faxed to patient's PCP. For Dr. Cordero: Patient also reports she is feeling nauseated and [...] on 02/15/23 but is not on Med list? Patient requests sooner appointment than 07/26/23 and for refills of medications that can help her. Kath Westbrook RN [facility] 2023-03-09 09:11:36 I called patient to relay her GI provider's msg. Patient understands and asked if I could send last order for iron infusion to show her PCP so it can be done thru their office. Last order was sent to patient's [facility] as per her request. R ROUTE [employer]ER Kath Westbrook RN [facility] 2023-03-09 08:51:07 Antony chase I would but I think her PCP should be able to do this and because of previous issues with the order will let them handle it. It should be possible for PCP to do it if they put in a little effort R [employer]OUTE [employer]ER [facility] 2023-03-08 16:20:43 I called patient who stated she received a chart msg from Dr. Cordero stating her iron was low and recommended she take infusion. Patient needs another referral for the iron infusion at [facility]. Patient stated her PCP has no clue on how to order infusion. Patient states GI provider did put in the last order that was done at [facility]. 11/23/22: Order for MONOFERRIC infusion sent to [facility], fax # [phone]. Fax was confirmed as received. R [employer]TE [employer]ER Kath Westbrook RN [facility] 2023-03-08 15:42:27 Shivani Schuler is a 47 year old female Pt is calling requesting for referral to be placed to [facility] in regards to getting iron infusion done. Please call the pt to discuss. Please advise. R ROUTE CAR[employer]ER Daxa Scott [facility] 2023-02-15 10:30:00 Images from the original note were not included. Venipuncture collection performed by clean technique on the right anticubitus and back of left hand. Total of 2 attempts were made. Slight pressure and a bandage/dressing were applied to the site(s). The patient experienced no complications. The following specimens were processed according to instructions and sent to [facility] laboratories per lab order on 02/15/2023 : LT BLUE SST 1 RED LAV PPT DK GREEN (LiHep) DK GREEN (SodH) SUE DK BLUE (K2) DK BLUE (S) ACD Blood Culture NIPT/NTD R ROUTE CAR[employer]ER [facility] 2023-01-12 21:52:03 Dr. Cordero, Please call patient and see how we can help. ED precautions if worsening symptoms. Dominic [employer] IM-GASTROENTEROLOGY STAFF [facility] 2022-10-19 08:30:00 Formatting of this n ote is different from the original. Images from the original note were not included. Venipuncture collection performed by clean technique on the left anticubitus. Total of 1 attempts were made. Slight pressure and a bandage/dressing were applied to the site(s). The patient experienced no complications. The following specimens were processed according to instructions and sent to [facility] laboratories LT BLUE Lt Green SST 2 RED LAV PPT DK GREEN (L) DK GREEN (S)/// Fibrosure set BLUE,SST & LAV SUE DK BLUE (K2) DK BLUE (S) ACD RST BLOOD CULTURE NIPT or ALLOSURE VERIFYNOW URINE URINE CULTURE APTIMA URINE STOOL Monogram Z plasma preservative tube (call lab for tube)[facility] Vasoactive Intestinal Peptide (call lab for tube)[facility] Samantha Rosales [facility] 2022-10-05 10:15:00 Formatting of this n ote is different from the original. Images from the original note were not included. Venipuncture collection performed by clean technique on the left anticubitus. Total of 1 attempts were made. Slight pressure and a bandage/dressing were applied to the site(s). The patient experienced no complications. The following specimens were processed according to instructions and sent to [facility] laboratories per lab order on 10/05/2022: LT BLUE SST 1 RED LAV 2 PPT DK GREEN (LiHep) DK GREEN (SodH) SUE DK BLUE (K2) DK BLUE (S) ACD Blood Culture NIPT/NTD [facility] 2018-07-20 06:55:00 [phone] [address] PATIENT NAME: SHIVANI SCHULER ADMIT DATE: 07/20/18 ACCOUNT NO: [id number] ROOM NO: AGE: 43 REPORT TYPE: CARDIAC CATHETERIZATION REPORT SEX: F ADMITTING PHYSICIAN: ATTENDING PHYSICIAN:Thea Harper MD PROCEDURE DATE: 07/20/2018 SOFTWARE QUALITY ASSURANCE ENGINEER: Thea Harper MD TITLE OF THE PROCEDURE: Left heart catheterization, selective bilateral renal angiograms. INDICATION FOR THE PROCEDURE: Chest pain, multiple cardiovascular risk factors, abnormal stress test, uncontrolled hypertension, rule out renal artery stenosis. ESTIMATED BLOOD LOSS: Minimal. COMPLICATIONS: None. CONTRAST: 80 mL. ANESTHESIA: Conscious sedation with Versed and fentanyl and 1% lidocaine for local anesthesia. FINAL DIAGNOSES: No angiographic coronary artery disease, elevated left ventricular end-diastolic pressure, fibromuscular dysplasia of the right renal artery that is not obstructive. The recommendation is medical therapy. PROCEDURE IN DETAIL: After informed consent, the patient was brought to the cardiac catheterization lab in a stable fasting nonsedated state. She was prepped and draped in the usual sterile fashion. After conscious sedation, 1% lidocaine was administered to the right common femoral artery area for local anesthesia. A 6-Barbadian sheath was placed in the right common femoral artery using standard techniques and fluoroscopy. After heparinization, left coronary angiogram showed a very short left main, if any and JL3.5 had to be used to cannulate the left main. There was no angiographic disease of both the LAD and circumflex. Right coronary angiogram showed no angiographic coronary artery disease. It was a dominant vessel. Left ventricular angiogram showed an elevated left ventricular end-diastolic pressure of 23, normal left ventricular ejection fraction of 60%. No wall motion abnormalities and no significant aortic valve gradient. The right groin was sealed using Vascade. Before that, selective bilateral renal angiogram was carried out that showed fibromuscular dysplasia of the right renal artery that is not obstructive. There was spasm. The right common femoral insertion site as there was also a spasm previously from the catheter on the origin of the circumflex. The patient tolerated the procedure well. There were no complications. She was transferred back to the [facility] area for observation to be discharged later on today on medical therapy PATIENT NAME: SHIVANI SCHULER and risk factor modification. Dictated By: Thea Harper MD WT: CATH:ADRIANA/KIAN/RIGOBERTO Conf#: [id number]/DID#: [id number] Authenticated by Thea Harper MD On 07/20/2018 08:15:22 AM at 0815 PATIENT NAME: SHIVANI SCHULER [facility] 2018-07-20 06:06:00 [place] [address] PATIENT NAME: SHIVANI SCHULER ADMIT DATE: 07/20/18 ACCOUNT NO: [id number] ROOM NO: AGE: 43 REPORT TYPE: ELECTROCARDIOGRAM SEX: F ADMITTING PHYSICIAN: ATTENDING PHYSICIAN:Thea Harper MD Order: [id number] Test Reason : CAD Test Date/Time Stamp: [...] Confirmed by THEA HARPER ([id number]) on 07/20/2018 9:21:42 AM Referred By: Thea Harper Confirmed by:THEA HARPER at 0921 PATIENT NAME: SHIVANI SCHULER [facility] 2018-07-19 18:55:00 [phone] [place] [address] PATIENT NAME: SHIVANI SCHULER ADMIT DATE: 07/20/18 ACCOUNT NO: [id number] ROOM NO: AGE: 43 REPORT TYPE: HISTORY AND PHYSICAL SEX: F ADMITTING PHYSICIAN: ATTENDING PHYSICIAN:Thea Harper MD ADMISSION DATE: 07/20/2018 SOFTWARE QUALITY ASSURANCE ENGINEER: Thea Harper MD REASON FOR ADMISSION: Chest pain, dyspnea sounds like new onset angina, abnormal stress test for cardiac catheterization and possible revascularization. HISTORY OF PRESENT ILLNESS: Shivani is a 43-year-old lady with multiple cardiovascular risk factors, who was recently evaluated for symptoms of chest pains, dyspnea and history of syncope. Noninvasive workup was carried out with an echocardiogram, which was normal. She had a stress test. She was able to exercise for a total of about 6 minutes. She had a positive stress test with ST depression. Given this information and the patient's risk factors, she is here for cardiac catheterization to assess for possible revascularization. There is no history of congestive heart failure. She has history of dizziness and history of syncope as well as edema. PAST MEDICAL HISTORY: Remarkable for hypertension, anxiety, depression, sleep apnea, gout, and allergies. PAST SURGICAL HISTORY: Cholecystectomy. ALLERGIES: SULFA CAUSES RASH. MEDICATIONS: Duloxetine 60 mg daily, quetiapine fumarate 50 mg daily, allopurinol 100 mg daily, citalopram 10 mg daily, propranolol 80 mg daily, losartan 100 mg daily, furosemide 40 mg as needed. SOCIAL HISTORY: The patient does not smoke or use street drugs or drinks alcohol. FAMILY HISTORY: Positive for atherosclerotic cardiovascular disease. REVIEW OF SYSTEMS: Remarkable for the above in addition to fatigue, dizziness, headaches, night sweats, allergies, dry mouth, weakness, edema, nausea, history of gout, difficulty balancing, anxiety and depression. No acute GI or symptoms. No TIAs or strokes. PHYSICAL EXAMINATION: GENERAL: A pleasant middle-aged lady in no acute distress. VITAL SIGNS: Blood pressure 141/85, pulse 77 per minute and regular, respiratory rate 16 unlabored, temperature afebrile. PATIENT NAME: SHIVANI SCHULER HEENT: Head, atraumatic and normocephalic. Eyes and ENT examination within normal for age. NECK: Supple. No jugular venous distention, bruits, or lymphadenopathy. Normal upstroke. LUNGS: Clear and resonant. HEART: Regular rate and rhythm. No murmurs or gallops. ABDOMEN: Soft. No tenderness, no organomegaly, no masses or bruits. EXTREMITIES: 1+ edema. 2+ distal pulses. No cyanosis or clubbing. NEUROLOGIC: Alert and oriented x3. Examination appears to [...] of the planned procedure were discussed in detail with the patient and she is willing to proceed. The patient was offered to do a stress nuclear before the heart catheterization, but she was convinced that she will eventually need a cardiac catheterization, so she decided to proceed directly with catheterization to save any further costs. This was all discussed in detail with the patient. Dictated By: Thea Harper MD WT: HP:TRAVIS/KIAN/RIGOBERTO Conf#: [id number]/DID#: [id number] Authenticated by Thea Harper MD On 07/25/2018 07:20:46 AM at 0721 PATIENT NAME: SHIVANI SCHULER HCAWU
[2023-09-12 13:41] LABS: Absolute Eosinophils 0.2 K/uL (0-0.5); Absolute Lymphocytes (CBC) 1.6 K/uL (0.7-4.9); Absolute Monocytes 0.5 K/uL (0.1-1.3); Absolute Neutrophil 4.3 K/uL (1.8-8.0); Basophils % 0.7 % (0-1.3); Eosinophils % 3.6 % (0-4.4); Hematocrit 31.3 % (36.0-45.0); Hemoglobin 9.7 g/dL (12.0-15.0); Lymphocytes % 24.4 % (15.3-44.8); MCHC 31.1 g/dL (32.0-36.0); MCV 73.8 fL (80-100); MPV 9.2 fL (7.6-11.3); Neutrophils % 64.3 % (41.7-73.7); Platelets 253 thou/uL (152-406); RBC Red Blood Cell Count 4.23 M/uL (3.86-4.86); Red Cell Distribution Width 17.5 % (12.1-15.2)
[2023-09-12 13:45] LABS: Specific Gravity 1.016 (1.005-1.030); Sqamous Epithelial <5 /HPF (None Seen); Urine Bacteria None Seen /HPF (<20); Urine Bilirubin NEGATIVE (Negative); Urine Blood Trace (Negative); Urine Clarity Clear (Clear); Urine Color Light-Yellow (Yellow); Urine Culture Reflex Order NOT NEEDED; Urine Glucose NEGATIVE (Negative); Urine Ketones NEGATIVE (Negative); Urine Microscopic Reflex YN ORDER UMIC; Urine Mucus Slight /HPF (None Seen); Urine Nitrite NEGATIVE (Negative); Urine Protein NEGATIVE (Negative); Urine RBC <5 /HPF (None Seen); Urine Urobilinogen Normal (Normal); Urine WBC <5 /HPF (<5)
[2023-09-12 13:56] LABS: Albumin 3.9 g/dL (3.4-5.0); Albumin/Globulin Ratio 1.2 (1.1-1.8); Bilirubin Total 0.3 mg/dL (0.2-1.0); Globulin 3.3 g/dL (2.3-3.5); Protein, Total 7.2 g/dL (6.4-8.2)
--- NOTE | 2023-09-12 14:11 | RAD REPORT ---
EXAM DESCRIPTION: CTAbdomen Pelvis W Contrast - 09/12/2023 1:59 pm CLINICAL HISTORY: Abdominal pain. post-appendectomy, fever;Abd pain COMPARISON: Abdomen Pelvis W Contrast dated 08/24/2023; Abdomen Pelvis W Contrast dated 03/10/2023 ; Abdomen Pelvis W Contrast dated 01/16/2023; Abdomen Pelvis W Contrast dated 01/03/2023 TECHNIQUE: Biphasic CT imaging of the abdomen and pelvis was performed with 100 ml non-ionic IV cont rast. All CT scans are performed using dose optimization technique as appropriate and may include automated exposure control or mA/KV adjustment according to patient size. FINDINGS: The lung bases are clear. The liver shows mild fatty infiltration. Cholecystectomy. Spleen, pancreas, adrenal glands and kidney s are within normal limits. No bowel obstruction, free air, free fluid or abscess. Appendectomy. Postsurgical clips in the umbil ical region. No evidence of significant lymphadenopathy. No suspicious bony findings. IMPRESSION: No acute intra-abdominal or pelvic finding.
--- NOTE | 2023-09-12 14:46 | EDPHYS ---
Physician Documentation [facility] Name: Shivani Lagunas Age: 48 yrs Sex: Female : 1975 Arrival Date: 09/12/2023 Time: 11:44 Bed 10 Private MD: ED Physician Yolanda Hardy HPI: 09/11 14:42 This 48 yrs old Female presents to ER via Ambulatory with complaints of Suture sd2 Recheck - swelling and hot post Sx. 14:42 48-year-old female presents with a chief complaint of abdominal pain and fever that sd2 started last night. She reports that she had an appendectomy performed approximately 3 weeks ago but never returned for follow-up to have her fred removed so they are still in place. She was concern for a wound infection. She denies any associated nausea, vomiting, diarrhea or urinary symptoms.. 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 - Infectious Disease History:: Denies. - Social history:: Smoking status: Patient denies any tobacco usage or history of. ROS: 14:42 Constitutional: Negative for fever, chills, and weight loss, Eyes: Negative for injury, sd2 pain, redness, and discharge, Cardiovascular: Negative for chest pain, palpitations, and edema, Respiratory: Negative for shortness of breath, cough, wheezing. Abdomen/GI: Positive for abdominal pain. Negative for nausea, vomiting and diarrhea Back: Negative for injury and pain, : Negative for dysuria, urinary frequency, hesitancy, urgency and hematuria. MS/Extremity: Negative for injury and deformity, Skin: Negative for injury, rash, and discoloration, Exam: 14:42 Constitutional: This is a well developed, well nourished patient who is awake, alert, sd2 and in no acute distress. Head/Face: Normocephalic, atraumatic. Eyes: EOMI, normal conjunctiva bilaterally Chest/axilla: Normal chest wall appearance and motion. Nontender with no deformity. Cardiovascular: Regular rate and rhythm with a normal S1 and S2. No gallops, murmurs, or rubs. 2+ distal pulses. Respiratory: Lungs have equal breath sounds bilaterally, clear to auscultation and percussion. No rales, rhonchi or wheezes noted. No increased work of breathing, no retractions or nasal flaring. Abdomen/GI: Soft, nondistended, mild generalized diffuse tenderness without rebound or guarding, incisions to right lower quadrant and umbilicus are clean, dry and intact with fred in place. There is a tiny amount of erythema at the staple sites with no warmth, induration or fluctuance. Skin: Warm, dry with normal turgor. Normal color with no rashes, no lesions, and no evidence of cellulitis. MS/ Extremity: Pulses equal, no cyanosis. Neurovascular intact. Full, normal range of motion. Psych: Awake, alert, with orientation to person, place and time. Behavior, mood, and affect are within normal limits. Vital Signs: 12:10 BP 164 / 79; Pulse 87; Resp 18; Temp 97; Pulse Ox 98% ; ko1 Procedures: 14:42 Suture/Staple removal: Removed 10 fred, from abdomen, site appears well healed, sd2 dressed with Patient tolerated well. MDM: 12:22 Patient medically screened. sd2 14:42 Differential diagnosis: Wound infection, abscess, cellulitis, intra-abdominal infection sd2 among others. Data reviewed: vital signs, nurses notes, lab test result(s), radiologic studies. Care significantly affected by the following chronic conditions: Hypertension, Congestive Heart Failure. Counseling: I had a detailed discussion with the patient and/or guardian regarding the historical points, exam findings, and any diagnostic results supporting the discharge/admit diagnosis, lab results, radiology results, the need for outpatient follow up, to return to the emergency department if symptoms worsen or persist or if there are any questions or concerns that arise at home. ED course: Labs and imaging reviewed with no acute findings. The patient is well-appearing with a benign abdominal exam and stable vital signs. She is afebrile. She was advised to follow-up with Dr. New who is her surgeon previously. She is comfortable plan for discharge and outpatient follow-up and verbalizes understanding of strict return precautions. Her fred were also removed at this visit.. 09/11 12:23 Order name: CBC with Diff; Complete Time: 13:56 sd2 09/11 12:23 Order name: CMP; Complete Time: 13:56 sd2 09/11 12:23 Order name: Lipase; Complete Time: 13:56 sd2 09/11 12:23 Order name: Urinalysis w/ reflexes; Complete Time: 13:56 sd2 09/11 12:23 Order name: CT Abd/Pelvis - IV Contrast Only; Complete Time: 14:14 sd09/11 14:47 Order name: Staple Remover Setup; Complete Time: 15:01 sd2 Administered Medications: No medications were administered Disposition Summary: 09/12/23 14:46 Discharge Ordered Problem: new sd2 Symptoms: have improved sd2 Condition: Stable sd2 Diagnosis - Abdominal pain, Generalized sd2 - Postoperative wound check sd2 Followup: sd2 - With: Antony New MD - When: 2 - 3 days - Reason: Wound Recheck, Recheck today's complaints, Continuance of care Discharge Instructions: - Discharge Summary Sheet sd2 - Abdominal Pain, Adult sd2 Forms: - Medication Reconciliation Form sd2 - Antibiotic Education sd2 - Prescription Opioid Use sd2 - Patient Portal Instructions sd2 - Leadership Thank You Letter sd2 Signatures: Dispatcher [employer] Yolanda Portillo MD MD sd2 Kimberly Myles RN RN ko1 Corrections: (The following items were deleted from the chart) 14:59 14:42 Constitutional: This is a well developed, well nourished patient who is awake, sd2 alert, and in no acute distress. Head/Face: Normocephalic, atraumatic. Eyes: EOMI, normal conjunctiva bilaterally Chest/axilla: Normal chest wall appearance and motion. Nontender with no deformity. Cardiovascular: Regular rate and rhythm with a normal S1 and S2. No gallops, murmurs, or rubs. 2+ distal pulses. Respiratory: Lungs have equal breath sounds bilaterally, clear to auscultation and percussion. No rales, rhonchi or wheezes noted. No increased work of breathing, no retractions or nasal flaring. Abdomen/GI: Soft, nondistended, mild generalized diffuse tenderness without rebound or guarding, incision to right lower quadrant is clean, dry and intact with fred in place. There is a tiny amount of erythema at the staple sites with no warmth, induration or fluctuance. Skin: Warm, dry with normal turgor. Normal color with no rashes, no lesions, and no evidence of cellulitis. MS/ Extremity: Pulses equal, no cyanosis. Neurovascular intact. Full, normal range of motion. Psych: Awake, alert, with orientation to person, place and time. Behavior, mood, and affect are within normal limits. sd2 14:59 14:42 Suture/Staple removal: Removed 3 fred, from abdomen, site appears well healed, sd2 dressed with Patient tolerated well, sd2
--- NOTE | 2023-09-12 14:46 | ER ---
Nurse's Notes [facility] Name: Shivani Lagunas Age: 48 yrs Sex: Female : 1975 Arrival Date: 09/12/2023 Time: 11:44 Bed 10 Private MD: Diagnosis: Abdominal pain, Generalized;Postoperative wound check Presentation: 09/11 12:10 Chief complaint: Patient states: had appy about 3 weeks ago with fred Gomez ko1 intact x 3, states incision area feels swollen and tender. Coronavirus screen: At this time, the client does not indicate any symptoms associated with coronavirus-19. Ebola Screen: No symptoms or risks identified at this time. Initial Sepsis Screen: Does the patient meet any 2 criteria? No. Patient's initial sepsis screen is negative. Does the patient have a suspected source of infection? No. Patient's initial sepsis screen is negative. Risk Assessment: Do you want to hurt yourself or someone else? Patient reports no desire to harm self or others. Onset of symptoms was September 12, 2023. 12:10 Method Of Arrival: Ambulatory ko1 12:10 Acuity: ALICIA 3 ko1 Triage Assessment: 12:13 General: Appears in no apparent distress. Behavior is calm, cooperative, appropriate ko1 for age. Pain: Complains of pain in right lower quadrant. 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 - Infectious Disease History:: Denies. - Social history:: Smoking status: Patient denies any tobacco usage or history of. Screenin:02 [facility] ED Fall Risk Assessment (Adult) History of falling in the last 3 months, mb9 including since admission No falls in past 3 months (0 pts) Confusion or Disorientation No (0 pts) Intoxicated or Sedated No (0 pts) Impaired Gait No (0 pts) Mobility Assist Device Used No (0 pt) Altered Elimination No (0 pt) Score/Fall Risk Level 0 - 2 = Low Risk Maintained a safe environment, Hourly rounding (assess needs \T\ fall precautionary measures) done. Abuse screen: Denies threats or abuse. Nutritional screening: No deficits noted. Tuberculosis screening: No symptoms or risk factors identified. Assessment: 15:01 Reassessment: No changes from previously documented assessment. Patient and/or family mb9 updated on plan of care and expected duration. Pain level reassessed. Patient is alert, oriented x 3, equal unlabored respirations, skin warm/dry/pink. Vital Signs: 12:10 BP 164 / 79; Pulse 87; Resp 18; Temp 97; Pulse Ox 98% ; ko1 ED Course: 11:46 Patient arrived in ED. ra3 11:55 Yolanda Hardy MD is Attending Physician. sd2 12:13 Triage completed. ko1 12:13 Arm band placed on right wrist. Patient placed in waiting room, Patient notified of ko1 wait time. 13:33 Initial lab(s) drawn, by me, sent to lab. Inserted saline lock: 22 gauge in left zm antecubital area, using aseptic technique. Blood collected. Flushed with 10 mL NS. 13:34 Urine collected: clean catch specimen, clear, jennifer colored. zm 13:34 Urinalysis w/ reflexes Sent. zm 13:34 Lipase Sent. zm 13:34 CMP Sent. zm 13:34 CBC with Diff Sent. zm 14:00 CT Abd/Pelvis - IV Contrast Only In Process Unspecified. EDMS 14:45 Antony New MD is Referral Physician. sd2 15:02 Patient has correct armband on for positive identification. Provided Education on: mb9 return to ED for worsening symptoms. 15:02 No provider procedures requiring assistance completed. IV discontinued, intact, mb9 bleeding controlled, No redness/swelling at site. Pressure dressing applied. Administered Medications: No medications were administered Medication: 15:03 VIS not applicable for this client. mb9 Outcome: 14:46 Discharge ordered by . sd2 15:02 Discharged to home ambulatory, mb9 15:02 Condition: stable 15:02 Discharge instructions given to patient, Instructed on discharge instructions, follow up and referral plans. wound care, Demonstrated understanding of instructions, follow-up care, wound care, 15:03 Patient left the ED. mb9 Signatures: Dispatcher [employer] EDMS Pauline Godoy Stephanie, MD MD sd2 Kimberly Myles RN RN ko1 Nathan, Iona Conley, RN RN mb9 Valeria Reed ra3
[2023-09-12 19:13] VITALS: BP 164/79; TEMP 97; O2SAT 98
== END 2023-09-12 15:03 | disposition home or self-care (01) ==
LOC: ER 11:44
DX: Z48.02 Encounter for removal of sutures (principal); R10.84 Generalized abdominal pain; Z48.01 Encounter for change or removal of surgical wound dressing
CPT/HCPCS: 85025; 81001; 36415; 83690; 80053; 74177; Q9967; 99283

== ENCOUNTER 2023-11-16 19:34 | Emergency (ER) | payer OTHER ==
--- OUTSIDE RECORDS SUMMARY | 2023-11-16 19:48 | XMS REPORT | Continuity of Care Document ---
Author Name Unknown Address [address] [facility] [address] [place] [address] [facility] thconnect Address [address] [facility] [address] [place] [address] Care Team Providers Care Gym Supervisor Name Role Phone Jae Holloway Primary Care Physician Unavailab le Doctor Unassigned, [employer] Attending Clinician U Tavon Ruth MD Attending Clinician [phone] ALESHA CROWE Attending Clinician Unavailable Consuelo BAUER, Elidia Gamble Attending Clinician [phone] Dominic Keita MD Attending Clinician [phone] Jose Westbrook MD Attending Clinician [phone] JOSE WESTBROOK Attending Clinician Unavailable FARZANA SAUCEDA Attending Clinician Unavailable MARYSOL PABON Attending Clinician Unavailable MARYSOL PABON Attending Clinician Unavailable Marysol Pabon DO Attending Clinician [phone] Rhiannon Vizcarra MD Attending Clinician [phone] Dominic Keita MD Attending Clinician [phone] DAVIDSON SUTHERLAND Attending Clinician Unavailable Consuelo BAUER, Elidia Gamble Attending Clinician [phone] EMILIA SNOWDEN Attending Clinician Annia vailable Doctor Unassigned, [employer] Attending Clinician U SARA Day Attending Clinician UnavailSARA Dorado Attending Clinician UnavailJewel Forbes MD Attending Clinician [facility] Attending Clinician Unavailable JEWEL CUNHA Attending Clinician Unavaila JENNY Norton Attending Clinician Unavailable JENNY ARRIAGA Attending Clinician Unavailable Dexter Dias MD Attending Clinician [phone] Davidson Sutherland MD Attending Clinician [phone] P[facility]-Lab Attending Clinician Unavailable DEXTER DIAS Attending Clinician Unavailable GC_GCBZW_Kadiyala_S Attending Clinician Unavaila ONEIDA Del Rosario Attending Clinician Unavailable DOMINIC KEITA Attending Clinician UnavailHunter Sahni MD Attending Clinician [phone] Ting Grissom MD Attending Clinician [phone] RADIOLOGY Attending Clinician Unavailable DORA NEWMAN Attending Clinician Unavailable Dora Newman NP Attending Clinician [phone] Kath Vences MD Attending Clinician [phone] Pob, [facility] Main Attending Clinician UnavailKATH Grady Attending Clinician Unavailchris e Pathology Attending Clinician Unavailable IGOR SAAVEDRA Attending Clinician Unavaila HILARY Ramires Attending Clinician Unavaila HILARY Ramires Attending Clinician Unavaila Igor mcconnell Rai, MD Attending Clinician Unava GIGI Jordan Attending Clinician Unavailable Gigi Monroy DO Attending Clinician [phone] Zane Martinez MD Attending Clinician Deonte Aviles Attending Clinician Unavailable UNKNOWN, ATTENDING Attending Clinician Unavailab SALLY Cash Attending Clinician Unavail able SALLY MITCHELL Attending Clinician Unavail Salbador Pantoja MD Attending Clinician [phone] SALBADOR LOCKWOOD Attending Clinician Unavailable HALIMA CONNOR Attending Clinician Unavailab Halima Choi DO Attending Clinician [phone] ROBERT NOWAK Attending Clinician Unavail Patti Goetz Attending Clinician [phone] CRISTO MARTINEZ Attending Clinician Unavail JEWEL Lloyd Attending Clinician UnaKATH Sen Attending Clinician Unav ANGELA Richardson Attending Clinician Unavailab RHIANNON Durant Admitting Clinician Unavailable GC_GCBZW_Kadiyala_S Admitting Clinician UnavailDOMINIC Peres Admitting Clinician Unavailchris Keita MD, Dominic Admitting Clinician [phone] Payers Payer Name Policy Type Policy Number Effective Date Expirati on Date Source [place] [id number] 2022 00:00:00 MEDICAID SSI PENDING PENDING 2021 00:00:00 Problems Condition Name Condition Details Condition Category Status Onset Date Resolution Date Last Treatment Date Treating Clinician Comments Source Iron deficiency anemia due to chronic blood loss Iron deficiency anemia due to chronic blood loss Disease Active 10-19 00:00: 00 [facility] Gastroesop hageal reflux disease, unspecifie d whether esophagiti s present Gastroesop hageal reflux disease, unspecifie d whether esophagiti s present Disease Active 10-19 00:00: 00 [facility] Arrhythmia Arrhythmia Disease Active 10-18 00:00: 00 [facility] Anemia Anemia Disease Active 02-17 00:00: 00 [facility] Bipolar 1 disorder, depressed Bipolar 1 disorder, depressed Disease Active 2019-02 00:00: 00 [facility] Gout Gout Disease Active 08-17 00:00: 00 [facility] Severe headache Severe headache Disease Active 1998-02 00:00: 00 [facility] Insomnia disorder Insomnia disorder Disease Active 1989-02 00:00: 00 [facility] Anxiety Anxiety Disease Active 10-18 00:00: 00 [facility] No known active problems No known active problems Disease [facility] Allergies, Adverse Reactions, Alerts Allergy Name Allergy Type Status Severity Reaction(s) Onset Date Inactive Date Treating Clinician Comments Source Sulfa (Sulfona mide Antibiot ics) Propensi ty to adverse reaction s Active Hives 06-05 00:00: 00 [facility] SULFA (SULFONA MIDE ANTIBIOT ICS) Drug Class Active Hives 06-05 00:00: 00 [facility] Social History Social Habit Start Date Stop Date Quantity Comments Source Gender identity [facility] Social function 2023-09-03 00:00:00 2023-09-03 00:00:00 [facility] Exposure to SARS-CoV-2 (event) 2022-02-05 00:00:00 2022-02-15 08:57:00 Not sure [facility] Tobacco use and exposure 2021-08-24 00:00:00 2021-08-24 00:00:00 Smokeless tobacco non-user [facility] Sex assigned at 1975 00:00:00 1975 00:00:00 [facility] Smoking Status Start Date Stop Date Source Never smoked tobacco [facility] Medications Ordered Medication Name Filled Medication Name Start Date Stop Date Current Medication? Ordering Clinician Indication Dosage Frequency Signature (SIG) Comments Components Source lithium carbonate CR 450 mg SR tablet 2023-02 00:00: 00 Yes [id number] TAKE TWO TABLETS BY MOUTH AT BEDTIME [facility] clonazePAM 1 mg tablet 11-09 00:00: 00 Yes [id number] TAKE 1/2 TO 1 TABLET BY MOUTH ONCE DAILY NEEDED FOR SEVERE ANXIETY [facility] LAMOTRIGINE 100 mg tablet 11-09 00:00: 00 Yes [id number] TAKE 1 TABLET BY MOUTH 2 TIMES A DAY (MORNING AND EVENING ) TELL DOCTOR IF YOU MISSED 4 OR MORE DAYS OF THIS MEDICATION , WILL NEED TO START AT LOWER DOSE [facility] lithium carbonate CR 450 mg SR tablet 9-04 00:00: 00 11-14 00:00 :00 No [id number] 900mg Take 2 tablets by mouth at bedtime. [facility] traZODone 50 mg tablet 807 00:00: 00 12-18 05:59 :00 Yes [id number] 75mg Take 1.5 tablets by mouth at bedtime for 90 days. [facility] busPIRone 30 mg tablet 09-02 00:00: 00 Yes [id number] 30mg Take 1 tablet by mouth in the morning and 1 tablet in the evening. [facility] DULoxetine 60 mg capsule 09-02 00:00: 00 Yes [id number] 60mg Take 1 capsule by mouth in the morning and 1 capsule in the evening. Follow up for refills [facility] clonazePAM (KLONOPIN) 1 mg tablet 09-02 00:00: 00 11-09 00:00 :00 No [id number] 1mg Take 1 tablet by mouth once daily as needed for Other (severe anxiety). Take 0.5mg to 1mg as needed for severe anxiety [facility] lamoTRIgine 100 mg tablet 09-02 00:00: 00 11-09 00:00 :00 No [id number] 100mg Take 1 tablet by mouth in the morning and 1 tablet in the evening. Let your Dr know if you have missed 4 or more days of this medication , we will need to start at a lower dose [facility] traZODone 50 mg tablet 08-27 00:00: 00 09-18 00:00 :00 No [id number] 50mg Take 1 tablet by mouth at bedtime. May cut tablet in half. Follow up for refills [facility] busPIRone 10 mg tablet 08-27 00:00: 00 09-02 00:00 :00 No [id number] 20mg Take 2 tablets by mouth in the morning and 2 tablets in the evening. Follow up for refills [facility] ferric derisomalto se (MONOFERRIC ) 100 mg iron/mL Soln 08-07 00:00: 00 08-08 04:59 :00 No [id number] 500mg Inject 500 mg intravenou sly once now for 1 dose. [facility] clonazePAM 1 mg tablet 08-01 00:00: 00 09-02 00:00 :00 No [id number] Take half to 1 tablet by mouth once daily as needed for extreme anxiety. Attempt to minimize use. Follow-up for continued refills. [facility] lithium carbonate CR 450 mg SR tablet 07-30 00:00: 00 10-16 00:00 :00 No [id number] 900mg Take 2 tablets by mouth at bedtime. [facility] omeprazole 40 mg capsule 07-25 00:00: 00 07-21 04:59 :00 No [id number] 40mg Take 1 capsule by mouth in the morning and 1 capsule in the evening. Take with meals. Do all this for 360 days. [facility] sucralfate 1 gram tablet 07-25 00:00: 00 10-24 04:59 :00 No [id number] 1g Take 1 tablet by mouth before meals and at bedtime for 90 days. [facility] traZODone 50 mg tablet 07-18 00:00: 00 08-26 00:00 :00 No [id number] 50mg Take 1 tablet by mouth at bedtime. May cut tablet in half. Follow up for refills [facility] DULoxetine 60 mg capsule -10 00:00: 00 09-02 00:00 :00 No [id number] 60mg Take 1 capsule by mouth in the morning and 1 capsule in the evening. Follow up for refills [facility] busPIRone 10 mg tablet 5-10 00:00: 00 08-27 00:00 :00 No [id number] 20mg Take 2 tablets by mouth in the morning and 2 tablets in the evening. Follow up for refills [facility] traZODone 50 mg tablet 5-10 00:00: 00 07-18 00:00 :00 No [id number] 50mg Take 1 tablet by mouth at bedtime. May cut tablet in half. Follow up for refills [facility] clonazePAM 1 mg tablet 5- 00:00: 00 07-30 00:00 :00 No [id number] Take half to 1 tablet by mouth once daily as needed for extreme anxiety. Attempt to minimize use. Follow-up for continued refills. [facility] iopamidol (ISOVUE 370-500 mL) injection 80 mL 06-07 02:57: 00 06-07 02:45 :00 No [id number] 80mL 80 mL, Intravenou s, ONCE, 1 dose, On Denise 06/07/23 at 2200, Routine [facility] NaCl 0.9% (NS) injection 5 mL 06-07 02:36: 00 Yes 5mL 5 mL, Slow IV Push, PRN - SEE INSTRUCTIO NS, Starting on Denise 06/07/23 at 2136, Until Discontinu ed, 10 mL [facility] traZODone 50 mg tablet -10 00:00: 00 06-21 00:00 :00 No [id number] 50mg Take 1 tablet by mouth at bedtime. May cut tablet in half. [facility] DULoxetine 60 mg capsule 4-10 00:00: 00 06-21 00:00 :00 No [id number] 60mg Take 1 capsule by mouth in the morning and 1 capsule in the evening. [facility] busPIRone 10 mg tablet 0 -26 00:00: 00 06-21 00:00 :00 No [id number] 20mg Take 2 tablets by mouth in the morning and 2 tablets in the evening. [facility] traZODone 50 mg tablet 2023-0 3-13 00:00: 00 05-22 00:00 :00 No [id number] 50mg Take 1 tablet by mouth at bedtime. May cut tablet in half. [facility] DULoxetine 60 mg capsule 3-13 00:00: 00 05-22 00:00 :00 No [id number] 60mg Take 1 capsule by mouth in the morning and 1 capsule in the evening. [facility] DULoxetine 60 mg capsule 1-24 00:00: 00 04-23 00:00 :00 No [id number] 60mg Take 1 capsule by mouth in the morning and 1 capsule in the evening. [facility] losartan potassium (LOSARTAN ORAL) -04 09:55: 13 Yes 20mg Take 20 mg by mouth. [facility] propranolol 80 mg tablet 02-15 09:55: 13 Yes 80mg Take 1 tablet by mouth in the morning and 1 tablet in the evening. [facility] allopurinoL 100 mg tablet 02-15 09:55: 13 Yes 100mg Take 1 tablet by mouth in the morning. [facility] lamoTRIgine 100 mg tablet 2022-02 00:00: 00 09-02 00:00 :00 No [id number] 100mg Take 1 tablet by mouth in the morning and 1 tablet in the evening. [facility] lithium carbonate CR 450 mg SR tablet 2022-02 00:00: 00 07-29 00:00 :00 No [id number] 900mg Take 2 tablets by mouth at bedtime. [facility] clonazePAM 1 mg tablet 2022-02 00:00: 00 06-11 00:00 :00 No [id number] Take half to 1 tablet by mouth once daily as needed for extreme anxiety. Attempt to minimize use. [facility] busPIRone 10 mg tablet 2022-02 00:00: 00 05-07 00:00 :00 No [id number] 20mg Take 2 tablets by mouth in the morning and 2 tablets in the evening. [facility] traZODone 50 mg tablet 2022-02 00:00: 00 04-22 00:00 :00 No [id number] 50mg Take 1 tablet by mouth at bedtime. May cut tablet in half. [facility] DULoxetine 60 mg capsule 2022-02 00:00: 00 03-07 00:00 :00 No [id number] 60mg Take 1 capsule by mouth in the morning and 1 capsule in the evening. [facility] busPIRone 15 mg tablet 2022-02 00:00: 00 01-22 00:00 :00 No [id number] 15mg Take 1 tablet by mouth in the morning and 1 tablet in the evening. [facility] lithium carbonate CR 450 mg SR tablet 2022-02 00:00: 00 01-22 00:00 :00 No [id number] 900mg Take 2 tablets by mouth at bedtime. [facility] traZODone 50 mg tablet 2022-02 00:00: 00 01-22 00:00 :00 No [id number] 50mg Take 1 tablet by mouth at bedtime. May cut tablet in half. [facility] DULoxetine 60 mg capsule 2022-02 00:00: 00 01-22 00:00 :00 No [id number] 60mg Take 1 capsule by mouth in the morning and 1 capsule in the evening. [facility] lamoTRIgine 100 mg tablet 2022-02 00:00: 00 01-22 00:00 :00 No [id number] 100mg Take 1 tablet by mouth in the morning and 1 tablet in the evening. [facility] clonazePAM 1 mg tablet 2022-02 00:00: 00 01-22 00:00 :00 No [id number] Take 1 tablet by mouth once daily as needed for extreme anxiety. Attempt to minimize use. [facility] busPIRone 15 mg tablet 2022-02 00:00: 00 12-20 00:00 :00 No [id number] 15mg Take 1 tablet by mouth in the morning and 1 tablet in the evening. [facility] lithium carbonate CR 450 mg SR tablet 2022-02 0-17 00:00: 00 12-20 00:00 :00 No [id number] 900mg Take 2 tablets by mouth at bedtime. [facility] traZODone 50 mg tablet 2022-02 00:00: 00 12-20 00:00 :00 No [id number] 50mg Take 1 tablet by mouth at bedtime. May cut tablet in half. [facility] DULoxetine 60 mg capsule 2022-02 00:00: 00 12-20 00:00 :00 No [id number] 60mg Take 1 capsule by mouth in the morning and 1 capsule in the evening. [facility] simethicone (GAS RELIEF (SIMETHICON E)) 40 mg/0.6 mL drops 2022-02 13:19: 00 11-13 16:49 :02 No PRN, Starting on Sun11/13/22 at 0819, Until Sun11/13/22 at 1149, Routine, Intra-op [facility] losartan potassium (LOSARTAN ORAL) 2022-02 09:49: 01 Yes 20mg Take 20 mg by mouth. [facility] propranolol 80 mg tablet 2022-02 09:49: 01 Yes 80mg Take 1 tablet by mouth in the morning and 1 tablet in the evening. [facility] allopurinoL 100 mg tablet 2022-02 09:49: 01 Yes 100mg Take 1 tablet by mouth in the morning. [facility] sucralfate 1 gram tablet 2022-02 00:00: 00 12-14 04:59 :00 No 1g Take 1 tablet by mouth in the morning and 1 tablet in the evening. Do all this for 30 days. [facility] ketorolac (TORADOL) injection 30 mg 11-03 17:00: 00 11-03 16:25 :00 No 30mg 30 mg, Slow IV Push, ONCE, 1 dose, On Sun11/03/22 at 1200, Routine [facility] NaCl 0.9% (NS) bolus infusion 500 mL 11-03 16:45: 00 11-03 18:14 :00 No 500mL at 999 mL/hr, 500 mL, IV Infusion, ONCE, 1 dose, On Sun11/03/22 at 1145, [facility] butalbital- acetaminoph en-caff (ESGIC) 50-325-40 mg tablet 1 tablet 11-03 16:00: 00 11-03 16:21 :00 No 1{tbl} 1 tablet, Oral, ONCE, 1 dose, On Sun11/03/22 at 1100, [facility] dexamethaso ne sod phos PF injection 10 mg 11-03 16:00: 00 11-03 16:27 :00 No 10mg 10 mg, Slow IV Push, ONCE, 1 dose, On Sun11/03/22 at 1100, 1 mL [facility] metoclopram chelo HCl (REGLAN) injection 10 mg 11-03 16:00: 00 11-03 16:28 :00 No 10mg 10 mg, Slow IV Push, ONCE, 1 dose, On Sun11/03/22 at 1100, [facility] diphenhydrA MINE (BENADRYL) injection 25 mg 11-03 16:00: 00 11-03 16:30 :00 No 25mg 25 mg, Slow IV Push, ONCE, 1 dose, On Sun11/03/22 at 1100, STAT [facility] atorvastati n 10 mg tablet 11-03 10:48: 00 11-03 00:00 :00 No 10mg Take 10 mg by mouth at bedtime. [facility] butalbital- acetaminoph en-caff 50-325-40 mg tablet 11-03 00:00: 00 Yes [id number] 1{tbl} Take 1 tablet by mouth every 6 (six) hours as needed for Pain (scale 7-10) or Pain (scale 4-6) for up to 12 doses. [facility] peg-electro lyte soln 236-22.74-6 .74 -5.86 gram solution 10-19 00:00: 11-03 00:00 :00 No [id number] Take as directed before colonoscop y [facility] busPIRone 15 mg tablet 10-04 00:00: 00 12-13 00:00 :00 No [id number] 15mg Take 1 tablet by mouth in the morning and 1 tablet in the evening. [facility] clonazePAM 1 mg tablet 09-28 00:00: 00 12-20 00:00 :00 No [id number] Take 1 tablet by mouth twice daily as needed for anxiety. [facility] DULoxetine 60 mg capsule 09-26 00:00: 00 11-22 00:00 :00 No [id number] 60mg Take 1 capsule by mouth in the morning and 1 capsule in the evening. [facility] lamoTRIgine 100 mg tablet 09-13 00:00: 00 12-20 00:00 :00 No [id number] 100mg Take 1 tablet by mouth in the morning and 1 tablet in the evening. [facility] lithium carbonate CR 450 mg SR tablet 09-13 00:00: 00 11-28 00:00 :00 No [id number] 900mg Take 2 tablets by mouth at bedtime. [facility] busPIRone 10 mg tablet 09-13 00:00: 00 10-04 00:00 :00 No [id number] 10mg Take 1 tablet by mouth in the morning and 1 tablet in the evening. [facility] clonazePAM 1 mg tablet 7-19 00:00: 00 09-25 00:00 :00 No [id number] Take 1 tablet by mouth twice daily as needed for anxiety. [facility] FUROSEMIDE ORAL 6-14 09:33: 26 07-26 00:00 :00 No 40mg Take 40 mg by mouth daily. [facility] traZODone 50 mg tablet 614 00:00: 00 11-28 00:00 :00 No [id number] 50mg Take 1 tablet by mouth at bedtime. May cut tablet in half. [facility] DULoxetine 60 mg capsule 0 6-14 00:00: 00 09-25 00:00 :00 No [id number] 60mg Take 1 capsule by mouth in the morning and 1 capsule in the evening. [facility] lamoTRIgine 100 mg tablet 0 14 00:00: 00 09-13 00:00 :00 No [id number] 100mg Take 1 tablet by mouth in the morning and 1 tablet in the evening. [facility] lithium carbonate CR 450 mg SR tablet 14 00:00: 00 09-13 00:00 :00 No [id number] 900mg Take 2 tablets by mouth at bedtime. [facility] busPIRone 10 mg tablet 14 00:00: 00 09-13 00:00 :00 No [id number] 10mg Take 1 tablet by mouth in the morning and 1 tablet in the evening. [facility] lamoTRIgine 100 mg tablet 07 00:00: 00 07-26 00:00 :00 No [id number] 100mg Take 1 tablet by mouth in the morning and 1 tablet in the evening. [facility] clonazePAM 1 mg tablet -24 00:00: 00 08-29 00:00 :00 No [id number] Take 1 tablet by mouth twice daily as needed for anxiety. [facility] DULoxetine 60 mg capsule 0 5-09 00:00: 00 07-26 00:00 :00 No [id number] 60mg Take 1 capsule by mouth in the morning and 1 capsule in the evening. [facility] lithium carbonate CR 450 mg SR tablet 0 5-09 00:00: 00 07-26 00:00 :00 No [id number] 900mg Take 2 tablets by mouth at bedtime. [facility] traZODone 50 mg tablet 2022-0 3-09 00:00: 00 07-26 00:00 :00 No [id number] 50mg Take 1 tablet by mouth at bedtime. May cut tablet in half. [facility] lamoTRIgine 100 mg tablet 2022-0 3-09 00:00: 00 07-19 00:00 :00 No [id number] 100mg Take 1 tablet by mouth in the morning and 1 tablet in the evening. [facility] clonazePAM 1 mg tablet 0 3-09 00:00: 00 07-05 00:00 :00 No [id number] Take 1 tablet by mouth twice daily as needed for anxiety. [facility] DULoxetine 60 mg capsule 04-20 00:00: 00 06-17 00:00 :00 No [id number] 60mg Take 1 capsule by mouth in the morning and 1 capsule in the evening. [facility] lithium carbonate CR 450 mg SR tablet 04-20 00:00: 00 06-17 00:00 :00 No [id number] 900mg Take 2 tablets by mouth at bedtime. [facility] lamoTRIgine 100 mg tablet 1- 00:00: 00 04-20 00:00 :00 No [id number] 100mg Take 1 tablet by mouth in the morning and 1 tablet in the evening. [facility] traZODone 50 mg tablet 1-04 00:00: 00 04-20 00:00 :00 No [id number] 50mg Take 1 tablet by mouth at bedtime. May cut tablet in half. [facility] lithium carbonate CR 450 mg SR tablet 1-04 00:00: 00 04-20 00:00 :00 No [id number] 900mg Take 2 tablets by mouth at bedtime. [facility] DULoxetine 60 mg capsule 2022-0 1-04 00:00: 00 04-19 00:00 :00 No [id number] 60mg Take 1 capsule by mouth in the morning and 1 capsule in the evening. [facility] clonazePAM 1 mg tablet 0 1-04 00:00: 00 04-19 00:00 :00 No [id number] Take 1 tablet by mouth twice daily as needed for anxiety. [facility] lamoTRIgine 100 mg tablet - 00:00: 00 03-09 00:00 :00 No [id number] 100mg Take 1 tablet by mouth in the morning and 1 tablet in the evening. [facility] lithium 600 mg capsule 02-15 00:00: 00 02-15 00:00 :00 No [id number] 600mg Take 1 capsule by mouth in the morning and 1 capsule in the evening. [facility] DULoxetine 60 mg capsule 2021-02 00:00: 00 02-15 00:00 :00 No [id number] 60mg Take 1 capsule by mouth in the morning and 1 capsule in the evening. [facility] lamoTRIgine 100 mg tablet 2021-02 00:00: 00 02-15 00:00 :00 No [id number] 100mg Take 1 tablet by mouth in the morning and 1 tablet in the evening. [facility] traZODone 50 mg tablet 2021-02 00:00: 00 02-15 00:00 :00 No [id number] 50mg Take 1 tablet by mouth at bedtime. May cut tablet in half. [facility] lamoTRIgine 100 mg tablet 2021-02 00:00: 00 02-02 00:00 :00 No [id number] 100mg Take 1 tablet by mouth in the morning and 1 tablet in the evening. [facility] clonazePAM 1 mg tablet 2021-02 00:00: 00 02-15 00:00 :00 No [id number] Take 1 tablet by mouth twice daily as needed for anxiety. [facility] DULoxetine 60 mg capsule 2021-02 00:00: 00 02-07 00:00 :00 No [id number] 60mg Take 1 capsule by mouth in the morning and 1 capsule in the evening. [facility] traZODone 50 mg tablet 2021-02 00:00: 00 01-11 00:00 :00 No [id number] 50mg Take 1 tablet by mouth at bedtime. May cut tablet in half. [facility] DULoxetine 60 mg capsule 2021-1 0-25 00:00: 00 01-09 00:00 :00 No [id number] 60mg Take 1 capsule by mouth in the morning and 1 capsule in the evening. [facility] lithium 600 mg capsule 2021-1 0-20 00:00: 00 02-15 00:00 :00 No [id number] 600mg Take 1 capsule by mouth in the morning and 1 capsule in the evening. [facility] lamoTRIgine 25 mg tablet 2021- 0-20 00:00: 00 01-11 00:00 :00 No [id number] 50mg Take 2 tablets by mouth in the morning and 2 tablets in the evening. [facility] clonazePAM 1 mg tablet 2021-02 0-20 00:00: 00 01-09 00:00 :00 No [id number] Take 1 tablet by mouth twice daily as needed for anxiety. [facility] lamoTRIgine 25 mg tablet 2021-0 8-26 00:00: 00 11-30 00:00 :00 No [id number] 50mg Take 2 tablets by mouth in the morning and 2 tablets in the evening. [facility] clonazePAM 1 mg tablet 2021-0 8-25 00:00: 00 11-30 00:00 :00 No [id number] Take no more than 1 mg twice daily as needed for anxiety [facility] lithium 600 mg capsule 2021-0 8-25 00:00: 00 11-30 00:00 :00 No [id number] 600mg Take 1 capsule by mouth in the morning and 1 capsule in the evening. [facility] Lamotrigine 50 mg tablet 2021-0 8-25 00:00: 00 10-07 00:00 :00 No [id number] 50mg Take 1 tablet by mouth in the morning and 1 tablet in the evening. [facility] Lamotrigine 50 mg tablet 2021-0 8-11 00:00: 00 10-06 00:00 :00 No [id number] 50mg Take 1 tablet by mouth in the morning and 1 tablet in the evening. [facility] DULoxetine 60 mg capsule 0 7-27 00:00: 00 12-05 00:00 :00 No [id number] 60mg Take 1 capsule by mouth in the morning and 1 capsule in the evening. [facility] Lamotrigine 50 mg tablet 0 7-18 00:00: 00 09-22 00:00 :00 No [id number] 50mg Take 1 tablet by mouth in the morning and 1 tablet in the evening. [facility] lithium 600 mg capsule 7-13 00:00: 00 10-06 00:00 :00 No [id number] 600mg Take 1 capsule by mouth in the morning and 1 capsule in the evening. [facility] DULoxetine 60 mg capsule 0 6-28 00:00: 00 Yes [id number] 60mg Take 1 capsule by mouth 2 (two) times daily. [facility] traZODone 50 mg tablet 0 6-28 00:00: 00 01-02 00:00 :00 No [id number] 50mg Take 1 tablet by mouth at bedtime. May cut tablet in half. [facility] clonazePAM 1 mg tablet -28 00:00: 00 10-06 00:00 :00 No [id number] Take no more than 1 mg twice daily as needed for anxiety [facility] DULoxetine 60 mg capsule 0 4-14 00:00: 00 08-09 00:00 :00 No [id number] 60mg Take 1 capsule by mouth 2 (two) times daily. [facility] traZODone 50 mg tablet 2021-0 4-14 00:00: 00 08-09 00:00 :00 No [id number] 50mg Take 1 tablet by mouth at bedtime. May cut tablet in half. [facility] vitamin B-12 1,000 mcg tablet 0 4-11 00:00: 00 11-03 00:00 :00 No [id number] 1000ug Take 1 tablet by mouth daily. [facility] cyanocobala min 1,000 mcg/mL injection 05-23 00:00: 00 11-03 00:00 :00 No [id number] 1000ug 1 mL by Intramuscu lar route weekly. [facility] losartan potassium (LOSARTAN ORAL) 05-17 09:24: 36 Yes 20mg Take 20 mg by mouth. [facility] FUROSEMIDE ORAL 05-17 09:24: 36 Yes 40mg Take 40 mg by mouth daily. [facility] magnesium gluconate 200 mg tablet 05-17 00:00: 00 Yes [id number] 400mg Take 2 tablets by mouth 2 (two) times daily. [facility] gabapentin 300 mg capsule 05-17 00:00: 00 11-03 00:00 :00 No [id number] 300mg Take 1 capsule by mouth 3 (three) times daily. [facility] rizatriptan 5 mg disintegrat ing tablet 05-17 00:00: 00 11-03 00:00 :00 No [id number] 5mg Take 1 tablet by mouth as needed for Migraine (Take 5mg at the beginning of the headache can repeat 2h after if headaches persists). May repeat in 2 hours if needed [facility] magnesium gluconate 200 mg tablet 05-17 00:00: 00 11-03 00:00 :00 No [id number] 400mg Take 2 tablets by mouth 2 (two) times daily. [facility] artificial tears,hypro mellose, 0.5 % ophthalmic drops 05-17 00:00: 00 06-22 00:00 :00 No [id number] 1[drp] Place 1 Drop in left eye as needed for Dry eyes. [facility] clonazePAM 1 mg tablet 05-12 00:00: 00 08-09 00:00 :00 No [id number] Take no more than 1 mg twice daily as needed for anxiety [facility] lithium 600 mg capsule 05-11 00:00: 00 06-12 00:00 :00 No [id number] 600mg Take 1 capsule by mouth 2 (two) times daily. [facility] ondansetron (ZOFRAN ODT) 4 mg disintegrat ing tablet 09-02 00:00: 00 11-03 00:00 :00 No [id number] 4mg Take 1 tablet by mouth every 8 (eight) hours as needed for Nausea and Vomiting (N/V). [facility] butalbital- acetaminoph en-caff 50-325-40 mg tablet 09-02 00:00: 00 06-22 00:00 :00 No [id number] 1{tbl} Take 1 tablet by mouth every 6 (six) hours as needed for Pain (scale 7-10). [facility] allopurinoL 100 mg tablet 08-05 13:17: 52 Yes 100mg Take 1 tablet by mouth in the morning. [facility] atorvastati n 10 mg tablet 08-05 13:17: 52 Yes 10mg Take 10 mg by mouth at bedtime. [facility] propranolol 80 mg tablet 08-05 13:12: 38 Yes 80mg Take 1 tablet by mouth in the morning and 1 tablet in the evening. [facility] Immunizations Ordered Immunization Name Filled Immunization Name Date Status Comments Source Influenza Virus Vaccine Quad .5 mL IM 6+ MO (FLUZONE/FLULAVAL/F LUARIX) 2020-11-13 00:00:00 Completed [facility] Influenza Virus Vaccine Quad .5 mL IM 6+ MO (FLUZONE/FLULAVAL/F LUARIX) 2020-11-13 00:00:00 Completed TDAP 2020-09-11 00:00:00 Completed [facility] TDAP 2020-09-11 00:00:00 Completed [facility] SARS-COV-2 COVID-19 VACCINE - (MODERNA) 2020-04-24 00:00:00 Completed [facility] SARS-COV-2 COVID-19 VACCINE - (MODERNA) 2020-04-24 00:00:00 Completed SARS-COV-2 COVID-19 VACCINE - (MODERNA) 2020-03-19 00:00:00 Completed [facility] SARS-COV-2 COVID-19 VACCINE - (MODERNA) 2020-03-19 00:00:00 Completed TDAP Unknown Completed [facility] Influenza Virus Vaccine Quad .5 mL IM 6+ MO (FLUZONE/FLULAVAL/F LUARIX) Unknown Completed [facility] SARS-COV-2 COVID-19 VACCINE - (MODERNA) Unknown Completed [facility] TDAP Unknown Completed [facility] Influenza Virus Vaccine Quad .5 mL IM 6+ MO (FLUZONE/FLULAVAL/F LUARIX) Unknown Completed [facility] SARS-COV-2 COVID-19 VACCINE - (MODERNA) Unknown Completed [facility] TDAP Unknown Completed [facility] Influenza Virus Vaccine Quad .5 mL IM 6+ MO (FLUZONE/FLULAVAL/F LUARIX) Unknown Completed [facility] SARS-COV-2 COVID-19 VACCINE - (MODERNA) Unknown Completed [facility] TDAP Unknown Completed [facility] Influenza Virus Vaccine Quad .5 mL IM 6+ MO (FLUZONE/FLULAVAL/F LUARIX) Unknown Completed [facility] SARS-COV-2 COVID-19 VACCINE - (MODERNA) Unknown Completed [facility] TDAP Unknown Completed [facility] Influenza Virus Vaccine Quad .5 mL IM 6+ MO (FLUZONE/FLULAVAL/F LUARIX) Unknown Completed [facility] SARS-COV-2 COVID-19 VACCINE - (MODERNA) Unknown Completed [facility] TDAP Unknown Completed [facility] Influenza Virus Vaccine Quad .5 mL IM 6+ MO (FLUZONE/FLULAVAL/F LUARIX) Unknown Completed [facility] SARS-COV-2 COVID-19 VACCINE - (MODERNA) Unknown Completed [facility] TDAP Unknown Completed [facility] Influenza Virus Vaccine Quad .5 mL IM 6+ MO (FLUZONE/FLULAVAL/F LUARIX) Unknown Completed [facility] SARS-COV-2 COVID-19 VACCINE - (MODERNA) Unknown Completed [facility] TDAP Unknown Completed [facility] Influenza Virus Vaccine Quad .5 mL IM 6+ MO (FLUZONE/FLULAVAL/F LUARIX) Unknown Completed [facility] SARS-COV-2 COVID-19 VACCINE - (MODERNA) Unknown Completed [facility] TDAP Unknown Completed [facility] Influenza Virus Vaccine Quad .5 mL IM 6+ MO (FLUZONE/FLULAVAL/F LUARIX) Unknown Completed [facility] SARS-COV-2 COVID-19 VACCINE - (MODERNA) Unknown Completed [facility] TDAP Unknown Completed [facility] Influenza Virus Vaccine Quad .5 mL IM 6+ MO (FLUZONE/FLULAVAL/F LUARIX) Unknown Completed [facility] SARS-COV-2 COVID-19 VACCINE - (MODERNA) Unknown Completed [facility] TDAP Unknown Completed [facility] Influenza Virus Vaccine Quad .5 mL IM 6+ MO (FLUZONE/FLULAVAL/F LUARIX) Unknown Completed [facility] SARS-COV-2 COVID-19 VACCINE - (MODERNA) Unknown Completed [facility] TDAP Unknown Completed [facility] Influenza Virus Vaccine Quad .5 mL IM 6+ MO (FLUZONE/FLULAVAL/F LUARIX) Unknown Completed [facility] SARS-COV-2 COVID-19 VACCINE - (MODERNA) Unknown Completed [facility] TDAP Unknown Completed [facility] Influenza Virus Vaccine Quad .5 mL IM 6+ MO (FLUZONE/FLULAVAL/F LUARIX) Unknown Completed [facility] SARS-COV-2 COVID-19 VACCINE - (MODERNA) Unknown Completed [facility] TDAP Unknown Completed [facility] Influenza Virus Vaccine Quad .5 mL IM 6+ MO (FLUZONE/FLULAVAL/F LUARIX) Unknown Completed [facility] SARS-COV-2 COVID-19 VACCINE - (MODERNA) Unknown Completed [facility] TDAP Unknown Completed [facility] Influenza Virus Vaccine Quad .5 mL IM 6+ MO (FLUZONE/FLULAVAL/F LUARIX) Unknown Completed [facility] SARS-COV-2 COVID-19 VACCINE - (MODERNA) Unknown Completed [facility] TDAP Unknown Completed [facility] Influenza Virus Vaccine Quad .5 mL IM 6+ MO (FLUZONE/FLULAVAL/F LUARIX) Unknown Completed [facility] SARS-COV-2 COVID-19 VACCINE - (MODERNA) Unknown Completed [facility] TDAP Unknown Completed [facility] Influenza Virus Vaccine Quad .5 mL IM 6+ MO (FLUZONE/FLULAVAL/F LUARIX) Unknown Completed [facility] SARS-COV-2 COVID-19 VACCINE - (MODERNA) Unknown Completed [facility] TDAP Unknown Completed [facility] Influenza Virus Vaccine Quad .5 mL IM 6+ MO (FLUZONE/FLULAVAL/F LUARIX) Unknown Completed [facility] SARS-COV-2 COVID-19 VACCINE - (MODERNA) Unknown Completed [facility] TDAP Unknown Completed [facility] Influenza Virus Vaccine Quad .5 mL IM 6+ MO (FLUZONE/FLULAVAL/F LUARIX) Unknown Completed [facility] SARS-COV-2 COVID-19 VACCINE - (MODERNA) Unknown Completed [facility] TDAP Unknown Completed [facility] Influenza Virus Vaccine Quad .5 mL IM 6+ MO (FLUZONE/FLULAVAL/F LUARIX) Unknown Completed [facility] SARS-COV-2 COVID-19 VACCINE - (MODERNA) Unknown Completed [facility] TDAP Unknown Completed [facility] Influenza Virus Vaccine Quad .5 mL IM 6+ MO (FLUZONE/FLULAVAL/F LUARIX) Unknown Completed [facility] SARS-COV-2 COVID-19 VACCINE - (MODERNA) Unknown Completed [facility] TDAP Unknown Completed [facility] Influenza Virus Vaccine Quad .5 mL IM 6+ MO (FLUZONE/FLULAVAL/F LUARIX) Unknown Completed [facility] TDAP Unknown Completed [facility] Influenza Virus Vaccine Quad .5 mL IM 6+ MO (FLUZONE/FLULAVAL/F LUARIX) Unknown Completed [facility] SARS-COV-2 COVID-19 VACCINE - (MODERNA) Unknown Completed [facility] TDAP Unknown Completed [facility] Influenza Virus Vaccine Quad .5 mL IM 6+ MO (FLUZONE/FLULAVAL/F LUARIX) Unknown Completed [facility] SARS-COV-2 COVID-19 VACCINE - (MODERNA) Unknown Completed [facility] SARS-COV-2 COVID-19 VACCINE - (MODERNA) Unknown Completed [facility] TDAP Unknown Completed [facility] Influenza Virus Vaccine Quad .5 mL IM 6+ MO (FLUZONE/FLULAVAL/F LUARIX) Unknown Completed [facility] SARS-COV-2 COVID-19 VACCINE - (MODERNA) Unknown Completed [facility] TDAP Unknown Completed [facility] Influenza Virus Vaccine Quad .5 mL IM 6+ MO (FLUZONE/FLULAVAL/F LUARIX) Unknown Completed [facility] SARS-COV-2 COVID-19 VACCINE - (MODERNA) Unknown Completed [facility] TDAP Unknown Completed [facility] Influenza Virus Vaccine Quad .5 mL IM 6+ MO (FLUZONE/FLULAVAL/F LUARIX) Unknown Completed [facility] SARS-COV-2 COVID-19 VACCINE - (MODERNA) Unknown Completed [facility] TDAP Unknown Completed [facility] Influenza Virus Vaccine Quad .5 mL IM 6+ MO (FLUZONE/FLULAVAL/F LUARIX) Unknown Completed [facility] SARS-COV-2 COVID-19 VACCINE - (MODERNA) Unknown Completed [facility] TDAP Unknown Completed [facility] Influenza Virus Vaccine Quad .5 mL IM 6+ MO (FLUZONE/FLULAVAL/F LUARIX) Unknown Completed [facility] SARS-COV-2 COVID-19 VACCINE - (MODERNA) Unknown Completed [facility] Vital Signs Vital Name Observation Time Observation Value Comments S osman Systolic blood pressure 2023-07-26 14:17:00 177 mm[Hg] [facility] Diastolic blood pressure 2023-07-26 14:17:00 92 mm[Hg] [facility] Heart rate 2023-07-26 14:17:00 97 /min [facility] Body temperature 2023-07-26 14:17:00 36.39 Verna [facility] Respiratory rate 2023-07-26 14:17:00 18 /min [facility] Body height 2023-07-26 14:17:00 167.6 cm [facility] Body weight 2023-07-26 14:17:00 100.472 kg [facility] BMI 2023-07-26 14:17:00 35.75 kg/m2 [facility] Oxygen saturation in Arterial blood by Pulse oximetry 2023-07-26 14:17:00 97 /min [facility] Systolic blood pressure 2023-06-08 07:00:00 112 mm[Hg] [facility] Diastolic blood pressure 2023-06-08 07:00:00 62 mm[Hg] [facility] Heart rate 2023-06-08 07:00:00 72 /min [facility] Respiratory rate 2023-06-08 07:00:00 20 /min [facility] Oxygen saturation in Arterial blood by Pulse oximetry 2023-06-08 07:00:00 97 /min [facility] Body weight 2023-06-08 02:41:00 108.863 kg [facility] BMI 2023-06-08 02:41:00 38.74 kg/m2 [facility] Body temperature 2023-06-08 02:38:00 36.67 Verna [facility] Body height 2023-06-08 02:34:00 167.6 cm [facility] Systolic blood pressure 2023-02-15 15:53:00 132 mm[Hg] [facility] Diastolic blood pressure 2023-02-15 15:53:00 73 mm[Hg] [facility] Heart rate 2023-02-15 15:53:00 74 /min [facility] Body temperature 2023-02-15 15:53:00 36.44 Verna [facility] Respiratory rate 2023-02-15 15:53:00 16 /min [facility] Body height 2023-02-15 15:53:00 167.6 cm [facility] Body weight 2023-02-15 15:53:00 100.336 kg [facility] BMI 2023-02-15 15:53:00 35.70 kg/m2 [facility] Oxygen saturation in Arterial blood by Pulse oximetry 2023-02-15 15:53:00 100 /min [facility] Systolic blood pressure 2022-11-13 14:08:00 117 mm[Hg] [facility] Diastolic blood pressure 2022-11-13 14:08:00 70 mm[Hg] [facility] Heart rate 2022-11-13 14:08:00 64 /min [facility] Respiratory rate 2022-11-13 14:08:00 12 /min [facility] Oxygen saturation in Arterial blood by Pulse oximetry 2022-11-13 14:08:00 99 /min [facility] Body temperature 2022-11-13 13:38:00 36.39 Verna [facility] Body height 2022-11-13 12:15:00 167.6 cm [facility] Body weight 2022-11-13 12:15:00 95.21 kg [facility] BMI 2022-11-13 12:15:00 33.88 kg/m2 [facility] Systolic blood pressure 2022-11-13 12:15:00 142 mm[Hg] [facility] Diastolic blood pressure 2022-11-13 12:15:00 66 mm[Hg] [facility] Heart rate 2022-11-13 12:15:00 77 /min [facility] Body temperature 2022-11-13 12:15:00 36 Verna [facility] Respiratory rate 2022-11-13 12:15:00 21 /min [facility] Body height 2022-11-13 12:15:00 167.6 cm [facility] Body weight 2022-11-13 12:15:00 95.21 kg [facility] BMI 2022-11-13 12:15:00 33.88 kg/m2 [facility] Oxygen saturation in Arterial blood by Pulse oximetry 2022-11-13 12:15:00 95 /min [facility] Systolic blood pressure 2022-11-03 15:35:00 154 mm[Hg] [facility] Diastolic blood pressure 2022-11-03 15:35:00 86 mm[Hg] [facility] Heart rate 2022-11-03 15:35:00 86 /min [facility] Body temperature 2022-11-03 15:35:00 37 Verna [facility] Respiratory rate 2022-11-03 15:35:00 18 /min [facility] Body height 2022-11-03 15:35:00 167.6 cm [facility] Body weight 2022-11-03 15:35:00 97.523 kg [facility] BMI 2022-11-03 15:35:00 34.70 kg/m2 [facility] Oxygen saturation in Arterial blood by Pulse oximetry 2022-11-03 15:35:00 99 /min [facility] Systolic blood pressure 2022-10-19 12:35:00 159 mm[Hg] Provider Notified [facility] Diastolic blood pressure 2022-10-19 12:35:00 85 mm[Hg] Provider Notified [facility] Heart rate 2022-10-19 12:35:00 94 /min [facility] Body temperature 2022-10-19 12:33:00 36.78 Verna [facility] Respiratory rate 2022-10-19 12:33:00 16 /min [facility] Body height 2022-10-19 12:33:00 167.6 cm [facility] Body weight 2022-10-19 12:33:00 96.616 kg [facility] BMI 2022-10-19 12:33:00 34.38 kg/m2 [facility] Oxygen saturation in Arterial blood by Pulse oximetry 2022-10-19 12:33:00 98 /min [facility] Systolic blood pressure 2023-09-03 14:41:00 131 mm[Hg] [facility] Diastolic blood pressure 2023-09-03 14:41:00 73 mm[Hg] [facility] Heart rate 2023-09-03 14:41:00 93 /min [facility] Respiratory rate 2023-09-03 14:38:00 20 /min [facility] Body height 2023-09-03 14:38:00 167.6 cm [facility] Body weight 2023-09-03 14:38:00 100.2 kg [facility] BMI 2023-09-03 14:38:00 35.65 kg/m2 [facility] Systolic blood pressure 2023-07-26 14:17:00 177 mm[Hg] [facility] Diastolic blood pressure 2023-07-26 14:17:00 92 mm[Hg] [facility] Heart rate 2023-07-26 14:17:00 97 /min [facility] Body temperature 2023-07-26 14:17:00 36.39 Verna [facility] Respiratory rate 2023-07-26 14:17:00 18 /min [facility] Body height 2023-07-26 14:17:00 167.6 cm [facility] Body weight 2023-07-26 14:17:00 100.472 kg [facility] BMI 2023-07-26 14:17:00 35.75 kg/m2 [facility] Oxygen saturation in Arterial blood by Pulse oximetry 2023-07-26 14:17:00 97 /min [facility] Systolic blood pressure 2023-06-08 07:00:00 112 mm[Hg] [facility] Diastolic blood pressure 2023-06-08 07:00:00 62 mm[Hg] [facility] Heart rate 2023-06-08 07:00:00 72 /min [facility] Respiratory rate 2023-06-08 07:00:00 20 /min [facility] Oxygen saturation in Arterial blood by Pulse oximetry 2023-06-08 07:00:00 97 /min [facility] Body weight 2023-06-08 02:41:00 108.863 kg [facility] BMI 2023-06-08 02:41:00 38.74 kg/m2 [facility] Body temperature 2023-06-08 02:38:00 36.67 Verna [facility] Body height 2023-06-08 02:34:00 167.6 cm [facility] Systolic blood pressure 2023-02-15 15:53:00 132 mm[Hg] [facility] Diastolic blood pressure 2023-02-15 15:53:00 73 mm[Hg] [facility] Heart rate 2023-02-15 15:53:00 74 /min [facility] Body temperature 2023-02-15 15:53:00 36.44 Verna [facility] Respiratory rate 2023-02-15 15:53:00 16 /min [facility] Body height 2023-02-15 15:53:00 167.6 cm [facility] Body weight 2023-02-15 15:53:00 100.336 kg [facility] BMI 2023-02-15 15:53:00 35.70 kg/m2 [facility] Oxygen saturation in Arterial blood by Pulse oximetry 2023-02-15 15:53:00 100 /min [facility] Systolic blood pressure 2023-01-22 15:03:00 144 mm[Hg] [facility] Diastolic blood pressure 2023-01-22 15:03:00 83 mm[Hg] [facility] Heart rate 2023-01-22 15:03:00 97 /min [facility] Respiratory rate 2023-01-22 15:00:00 18 /min [facility] Body height 2023-01-22 15:00:00 167.6 cm [facility] Body weight 2023-01-22 15:00:00 95.2 kg [facility] BMI 2023-01-22 15:00:00 33.88 kg/m2 [facility] Systolic blood pressure 2022-11-13 14:08:00 117 mm[Hg] [facility] Diastolic blood pressure 2022-11-13 14:08:00 70 mm[Hg] [facility] Heart rate 2022-11-13 14:08:00 64 /min [facility] Respiratory rate 2022-11-13 14:08:00 12 /min [facility] Oxygen saturation in Arterial blood by Pulse oximetry 2022-11-13 14:08:00 99 /min [facility] Body temperature 2022-11-13 13:38:00 36.39 Verna [facility] Body height 2022-11-13 12:15:00 167.6 cm [facility] Body weight 2022-11-13 12:15:00 95.21 kg [facility] BMI 2022-11-13 12:15:00 33.88 kg/m2 [facility] Systolic blood pressure 2022-11-03 15:35:00 154 mm[Hg] [facility] Diastolic blood pressure 2022-11-03 15:35:00 86 mm[Hg] [facility] Heart rate 2022-11-03 15:35:00 86 /min [facility] Body temperature 2022-11-03 15:35:00 37 Verna [facility] Respiratory rate 2022-11-03 15:35:00 18 /min [facility] Body height 2022-11-03 15:35:00 167.6 cm [facility] Body weight 2022-11-03 15:35:00 97.523 kg [facility] BMI 2022-11-03 15:35:00 34.70 kg/m2 [facility] Oxygen saturation in Arterial blood by Pulse oximetry 2022-11-03 15:35:00 99 /min [facility] Systolic blood pressure 2022-10-04 14:26:00 149 mm[Hg] [facility] Diastolic blood pressure 2022-10-04 14:26:00 76 mm[Hg] [facility] Heart rate 2022-10-04 14:26:00 78 /min [facility] Respiratory rate 2022-10-04 14:21:00 18 /min [facility] Body height 2022-10-04 14:21:00 167.6 cm [facility] Body weight 2022-10-04 14:21:00 96.843 kg [facility] BMI 2022-10-04 14:21:00 34.46 kg/m2 [facility] Systolic blood pressure 2022-07-26 13:22:00 135 mm[Hg] [facility] Diastolic blood pressure 2022-07-26 13:22:00 78 mm[Hg] [facility] Heart rate 2022-07-26 13:22:00 85 /min [facility] Respiratory rate 2022-07-26 13:22:00 18 /min [facility] Body height 2022-07-26 13:22:00 167.6 cm [facility] Body weight 2022-07-26 13:22:00 97.523 kg [facility] BMI 2022-07-26 13:22:00 34.70 kg/m2 [facility] Systolic blood pressure 2022-02-15 14:59:00 131 mm[Hg] [facility] Diastolic blood pressure 2022-02-15 14:59:00 70 mm[Hg] [facility] Heart rate 2022-02-15 14:59:00 81 /min [facility] Respiratory rate 2022-02-15 14:59:00 18 /min [facility] Body height 2022-02-15 14:59:00 167.6 cm [facility] Body weight 2022-02-15 14:59:00 102.967 kg [facility] BMI 2022-02-15 14:59:00 36.64 kg/m2 [facility] Respiratory rate 2022-01-11 17:11:00 18 /min [facility] Body height 2022-01-11 17:11:00 167.6 cm [facility] Body weight 2022-01-11 17:11:00 100.699 kg [facility] BMI 2022-01-11 17:11:00 35.83 kg/m2 [facility] Systolic blood pressure 2021-08-24 14:24:00 133 mm[Hg] [facility] Diastolic blood pressure 2021-08-24 14:24:00 73 mm[Hg] [facility] Heart rate 2021-08-24 14:24:00 69 /min [facility] Respiratory rate 2021-08-24 14:24:00 18 /min [facility] Body height 2021-08-24 14:24:00 167.6 cm [facility] Body weight 2021-08-24 14:24:00 100.245 kg [facility] BMI 2021-08-24 14:24:00 35.67 kg/m2 [facility] Oxygen saturation in Arterial blood by Pulse oximetry 2021-06-07 15:30:00 96 /min [facility] Body temperature 2021-06-07 14:20:30 37.44 Verna [facility] Procedures Procedure Date / Time Performed Performing Clinician Source URINALYSIS 2023-06-08 03:45:00 Rhiannon Vizcarra [facility] URINE DRUG (IMMUNOASSAY) - COMPREHENSIVE DRUG SCREEN W/O REFLEX 2023-06-08 03:45:00 Marysol Pabon [facility] URINALYSIS 2023-06-08 03:45:00 Rhiannon Vizcarra [facility] URINE DRUG (IMMUNOASSAY) - COMPREHENSIVE DRUG SCREEN W/O REFLEX 2023-06-08 03:45:00 Marysol Pabon [facility] CT STROKE ANGIOGRAM HEAD 2023-06-08 02:56:58 Rhiannon Vizcarra [facility] CT STROKE ANGIOGRAM NECK 2023-06-08 02:56:58 Rhiannon Vizcarra [facility] HB ECG ROUTINE & RHYTHM STRIP 2023-06-08 02:53:51 Rhiannon Vizcarra [facility] CT STROKE HEAD WO CONTRAST 2023-06-08 02:48:28 Rhiannon Vizcarra [facility] TROPONIN I 2023-06-08 02:45:00 Rhiannon Vizcarra [facility] BASIC METABOLIC PANEL (NA, K , CL, CO2, GLUCOSE, BUN, CREATININE, CA) 2023-06-08 02:45:00 Rhiannon Vizcarra [facility] LITHIUM 2023-06-08 02:45:00 Marysol Pabon [facility] ETHANOL 2023-06-08 02:45:00 Marysol Pabon [facility] CBC WITHOUT DIFF 2023-06-08 02:45:00 Rhiannon Vizcarra [facility] PROTHROMBIN TIME / INR 2023-06-08 02:45:00 Rhiannon Vizcarra [facility] ACTIVATED PARTIAL THRMPLAS CIPRIANO 2023-05-15 6 02:45:00 Rhiannon Vizcarra [facility] EXTRA TUBE LAV 2023-06-08 02:45:00 Marysol Pabon [facility] PROTHROMBIN TIME / INR 2023-06-08 02:45:00 Rhiannon Vizcarra [facility] ACTIVATED PARTIAL THRMPLAS CIPRIANO 2023-05-15 6 02:45:00 Rhiannon Vizcarra [facility] CBC WITHOUT DIFF 2023-06-08 02:45:00 Rhiannon Vizcarra [facility] TROPONIN I 2023-06-08 02:45:00 Rhiannon Vizcarra [facility] BASIC METABOLIC PANEL (NA, K , CL, CO2, GLUCOSE, BUN, CREATININE, CA) 2023-06-08 02:45:00 Rhiannon Vizcarra [facility] ETHANOL 2023-06-08 02:45:00 Marysol Pabon [facility] LITHIUM 2023-06-08 02:45:00 Marysol Pabon [facility] EXTRA TUBE LAV 2023-06-08 02:45:00 Marysol Pabon [facility] POCT GLUCOSE(AGE >30DAYS) 2023-06-08 02:39:00 Rhiannon Vizcarra [facility] POCT GLUCOSE(AGE >30DAYS) 2023-06-08 02:39:00 Rhiannon Vizcarra [facility] IRON PANEL 2023-02-15 16:30:00 Elidia Cordero [facility] FERRITIN SERUM 2023-02-15 16:30:00 Elidia Cordero [facility] LITHIUM 2023-01-22 16:35:00 Rosalind Freed [facility] CONSENT/REFUSAL FOR DIAGNOSI S AND TREATMENT 2023-01-22 14:56:09 Doctor Unassigned, [employer] [facility] CONSENT/REFUSAL FOR DIAGNOSI S AND TREATMENT 2023-01-22 14:56:09 Doctor Unassigned, [employer] [facility] SURGICAL PATHOLOGY EXAM 2022-11-13 13:05:00 Bossman [facility] ESOPHAGOGASTRODUODENOSCOPY 2022-11-13 12:47:00 Bossman [facility] COLONOSCOPY 2022-11-13 12:47:00 Bossman [facility] ESOPHAGOGASTRODUODENOSCOPY 2022-11-13 12:47:00 Bossman [facility] COLONOSCOPY 2022-11-13 12:47:00 Parupudi, [facility] COLONOSCOPY (ENDO) 2022-11-13 12:28:53 Jewel Aneudydl [facility] COLONOSCOPY (ENDO) 2022-11-13 12:28:53 Jewel [facility] COLONOSCOPY (ENDO) 2022-11-13 12:28:53 Jewel [facility] EGD (ENDO) 2022-11-13 12:19:[facility] EGD (ENDO) 2022-11-13 12:19:29 [facility] EGD (ENDO) 2022-11-13 12:19:29 Jewel [facility] CONSENT/REFUSAL FOR DIAGNOSI S AND TREATMENT 2022-11-13 12:17:09 Doctor Unassigned, [employer] [facility] CONSENT/REFUSAL FOR DIAGNOSI S AND TREATMENT 2022-11-13 12:17:09 Doctor Unassigned, [employer] [facility] ASSIGNMENT OF BENEFITS 2022-11-13 11:59:03 Doctor Unassigned, [employer] [facility] ASSIGNMENT OF BENEFITS 2022-11-13 11:59:03 Doctor Unassigned, [employer] [facility] ENDOSCOPY PROCEDURE DOCUMENTATION 2022-02 0-02 05:01:00 Doctor Unassigned, [employer] [facility] ENDOSCOPY PROCEDURE DOCUMENTATION 2022-02 0-02 05:01:00 Doctor Unassigned, [employer] [facility] COMP. METABOLIC PANEL (88163) 2022-11-03 16:24:00 Dora Newman [facility] CBC WITH DIFF 2022-11-03 16:24:00 Dora Newman [facility] POCT TEST 2022-11-03 16:24:00 Dora Newman [facility] CBC WITH DIFF 2022-11-03 16:24:00 Dora Newman [facility] POCT TEST 2022-11-03 16:24:00 Dora Newman [facility] COMP. METABOLIC PANEL (57738) 2022-11-03 16:24:00 Dora Newman [facility] URINALYSIS 2022-11-03 16:18:00 Dora Newman [facility] URINALYSIS 2022-11-03 16:18:00 Dora Newman [facility] RAPID STREP SCREEN FOR GROUP A 2022-10-14 2 16:14:00 Dora Newman [facility] RAPID STREP SCREEN FOR GROUP A 2022-10-14 2 16:14:00 Dora Newman [facility] THROAT CULTURE 2022-11-03 16:14:00 Dora Newman [facility] CONSENT/REFUSAL FOR DIAGNOSI S AND TREATMENT 2022-11-03 15:27:05 Doctor Unassigned, [employer] [facility] CONSENT/REFUSAL FOR DIAGNOSI S AND TREATMENT 2022-11-03 15:27:05 Doctor Unassigned, [employer] [facility] EMERGENCY SERVICES AGREEMENT S AND AUTHORIZATIONS 2022-11-03 05:01:00 Doctor Unassigned, [employer] [facility] HELICOBACTER PYLORI ANTIGEN, FECAL BY EIA 2022-10-19 13:44:00 Elidia Cordero [facility] HELICOBACTER PYLORI ANTIGEN, FECAL BY EIA 2022-10-19 13:44:00 Elidia Cordero [facility] FERRITIN SERUM 2022-10-19 13:35:00 Elidia Cordero [facility] IRON PANEL 2022-10-19 13:35:00 Elidia Cordero [facility] CELIAC SCREEN 2022-10-19 13:35:00 Elidia Cordero [facility] LAB ONLY CELIAC SCREEN IGA 2022-10-19 13:35:00 Elidia Cordero [facility] IRON PANEL 2022-10-19 13:35:00 Elidia Cordero [facility] CELIAC SCREEN 2022-10-19 13:35:00 Elidia Cordero [facility] FERRITIN SERUM 2022-10-19 13:35:00 Elidia Cordero [facility] LAB ONLY CELIAC SCREEN IGA 2022-10-19 13:35:00 Elidia Cordero [facility] DISCLOSURE AND CONSENT, MEDI JAVAD AND SURGICAL PROCEDURES 2022-10-19 05:01:00 Doctor Unassigned, [employer] [facility] DISCLOSURE AND CONSENT, MEDI JAVAD AND SURGICAL PROCEDURES 2022-10-19 05:01:00 Doctor Unassigned, [employer] [facility] REFERRAL- REQUEST/RESPONSE 2022-10-12 05:01:00 Doctor Unassigned, [employer] [facility] REFERRAL- REQUEST/RESPONSE 2022-10-12 05:01:00 Doctor Unassigned, [employer] [facility] THYROID STIMULATING HORMONE 2022-10-05 15:15:[address] [facility] COMP. METABOLIC PANEL (89760) 2022-10-05 15:15:[address] [facility] LIPID PANEL (21358)(TOTAL CHOLESTEROL, TRIGLYCERIDES, HDL) 2022-10-05 15:15:[address] [facility] LITHIUM 2022-10-05 15:15:00 Sara Hester [facility] CBC WITH DIFF 2022-10-05 15:15:[address] [facility] GLYCOSYLATED HEMOGLOBIN (A1C) 2022-10-05 15:15:[address] [facility] CBC WITH DIFF 2022-10-05 15:15:[address] [facility] COMP. METABOLIC PANEL (20842) 2022-10-05 15:15:[address] [facility] GLYCOSYLATED HEMOGLOBIN (A1C) 2022-10-05 15:15:[address] [facility] LIPID PANEL (25792)(TOTAL CHOLESTEROL, TRIGLYCERIDES, HDL) 2022-10-05 15:15:[address] [facility] THYROID STIMULATING HORMONE 2022-10-05 15:15:[address] [facility] LITHIUM 2022-10-05 15:15:00 Sara Hester [facility] ASSIGNMENT OF BENEFITS 2022-10-04 14:17:30 Doctor Unassigned, [employer] [facility] ASSIGNMENT OF BENEFITS 2022-10-04 14:17:30 Doctor Unassigned, [employer] [facility] LITHIUM 2022-07-26 14:49:00 Angela Sage [facility] PATIENT FINANCIAL POLICY 2022-07-26 13:16:12 Doctor Unassigned, [employer] [facility] PATIENT FINANCIAL POLICY 2022-07-26 13:16:12 Doctor Unassigned, [employer] [facility] EXTERNAL PROVIDER RECORDS 2022-04-08 06:01:00 Doctor Unassigned, [employer] [facility] EXTERNAL PROVIDER RECORDS 2022-04-08 06:01:00 Doctor Unassigned, [employer] [facility] EXTERNAL PROVIDER RECORDS 2022-02-21 06:01:00 Doctor Unassigned, [employer] [facility] EXTERNAL PROVIDER RECORDS 2022-02-21 06:01:00 Doctor Unassigned, [employer] [facility] 2022-02-15 15:58:00 Angela Sage [facility] CONSENT/REFUSAL FOR DIAGNOSI S AND TREATMENT 2022-01-11 17:10:16 Doctor Unassigned, [employer] [facility] CONSENT/REFUSAL FOR DIAGNOSI S AND TREATMENT 2022-01-11 17:10:16 Doctor Unassigned, [employer] [facility] EXTERNAL PROVIDER RECORDS 2020-11-26 05:01:00 Doctor Unassigned, [employer] [facility] Encounters Start Date/Time End Date/Time Encounter Type Admission Type Attending [facility] Facility Care Department Encounter ID Source 2020-12-13 10:09:54 Emergency [facility] [id number] [facility] 2020-12-11 04:02:45 Emergency [facility] [id number] [facility] 2023-10-09 00:00:00 2023-11-10 18:22:03 Patient Secure Msg Doctor Unassigned, [employer] 1.2.840.1 47711.1.1 3.104.2.7 .3.345616 .8 [id number] [facility] 2023-11-06 13:51:42 2023-11-06 13:51:42 [place] [id number] Robert Cali 2023-10-02 00:00:00 2023-11-03 18:20:51 Patient Secure Msg Doctor Unassigned, [employer] 1.2.840.1 41207.1.1 3.104.2.7 .3.550735 .8 [id number] [facility] 2023-09-28 00:00:00 2023-10-02 12:14:38 Patient Secure Msg TimTavon 1.2.840.1 91714.1.1 3.104.2.7 .3.113917 .8 [id number] [facility] 2023-09-03 09:30:00 2023-09-03 11:20:53 Outpatient ALESHA AMBRIZ [facility] [id number] [facility] 2023-09-03 00:00:00 2023-09-03 00:00:00 Travel 1.2.840.1 71140.1.1 3.104.2.7 .3.886758 .8 1.2.840.114 350.1.13.10 4.2.7.3.698 084.8 [id number] [facility] 2023-08-31 00:00:00 2023-08-31 00:00:00 Travel 1.2.840.1 02729.1.1 3.104.2.7 .3.453369 .8 1.2.840.114 350.1.13.10 4.2.7.3.698 084.8 [id number] [facility] 2023-08-27 08:00:00 2023-08-27 08:00:00 Outpatient ALESHA AMBRIZ [facility] [id number] [facility] 2023-08-24 00:00:00 2023-08-24 00:00:00 Travel 1.2.840.1 15408.1.1 3.104.2.7 .3.252705 .8 1.2.840.114 350.1.13.10 4.2.7.3.698 084.8 [id number] [facility] 2023-08-08 00:00:00 2023-08-08 12:08:14 Case Management Elidia Cordero 1.2.840.1 36370.1.1 3.104.2.7 .3.966407 .8 [id number] [facility] 2023-07-02 00:00:00 2023-08-04 18:20:55 Patient Secure Msg Dominic Keita 1.2.840.1 06360.1.1 3.104.2.7 .3.103177 .8 [id number] [facility] 2023-08-03 00:00:00 2023-08-03 08:18:24 Telephone Elidia Cordero 1.2.840.1 66729.1.1 3.104.2.7 .3.201328 .8 [id number] [facility] 2023-07-30 00:00:00 2023-07-30 15:44:55 Telephone Elidia Cordero 1.2.840.1 31045.1.1 3.104.2.7 .3.733755 .8 [id number] [facility] 2023-07-26 09:30:00 2023-07-26 10:00:00 Office Visit Jose Westbrook Elidia Fcoraven 1.2.840.1 34164.1.1 3.104.2.7 .3.001675 .8 [id number] [facility] 2023-07-26 09:30:00 2023-07-26 09:30:00 Outpatient JOSE TRAN [facility] [id number] [facility] 2023-07-26 00:00:00 2023-07-26 00:00:00 Travel 1.2.840.1 82566.1.1 3.104.2.7 .3.080305 .8 1.2.840.114 350.1.13.10 4.2.7.3.698 084.8 [id number] [facility] 2023-07-18 10:15:00 2023-07-18 10:15:00 Outpatient FARZANA UGALDE [facility] [id number] [facility] 2023-07-16 00:00:00 2023-07-16 00:00:00 Travel 1.2.840.1 70327.1.1 3.104.2.7 .3.170199 .8 1.2.840.114 350.1.13.10 4.2.7.3.698 084.8 [id number] [facility] 2023-07-02 00:00:00 2023-07-02 12:41:14 Telephone Elidia Cordreo 1.2.840.1 00965.1.1 3.104.2.7 .3.835489 .8 [id number] [facility] 2023-06-13 00:00:00 2023-06-13 10:19:53 Letter (Out) 1.2.840.1 53434.1.1 3.104.2.7 .3.616349 .8 [id number] [facility] 2023-06-07 21:35:00 2023-06-08 02:20:00 Emergency X MARYSOL PABON [facility] ERT [id number] [facility] 2023-06-07 21:35:00 2023-06-08 02:20:00 Emergency Marysol Pabon Whitney T 1.2.840.1 46212.1.1 3.104.2.7 .3.330490 .8 [id number] [facility] 2023-06-07 00:00:00 2023-06-07 00:00:00 Travel 1.2.840.1 95224.1.1 3.104.2.7 .3.047276 .8 1.2.840.114 350.1.13.10 4.2.7.3.698 084.8 [id number] [facility] 2023-05-29 00:00:00 2023-06-04 10:54:35 Patient Secure Msg Dominic Keita 1.2.840.1 86082.1.1 3.104.2.7 .3.933078 .8 [id number] [facility] 2023-05-28 08:45:00 2023-05-28 08:45:00 Outpatient DAVIDSON MEYER [facility] [id number] [facility] 2023-05-25 00:00:00 2023-05-25 00:00:00 Travel 1.2.840.1 21724.1.1 3.104.2.7 .3.993838 .8 1.2.840.114 350.1.13.10 4.2.7.3.698 084.8 [id number] [facility] 2023-05-22 08:17:37 2023-05-22 08:17:37 Outpatient [facility] [id number] Robert F Viraj 2023-05-11 00:00:00 2023-05-11 17:06:28 Telephone Leopoldo Corderokarl Mavis 1.2.840.1 33706.1.1 3.104.2.7 .3.631594 .8 [id number] [facility] 2023-05-09 00:00:00 2023-05-09 17:14:57 Patient Secure Msg Dominic Keita 1.2.840.1 42112.1.1 3.104.2.7 .3.129038 .8 [id number] [facility] 2023-05-08 10:00:00 2023-05-08 10:00:00 Outpatient EMILIA WU [facility] [id number] [facility] 2023-03-28 00:00:00 2023-04-28 18:05:02 Patient Secure Msg Doctor Unassigned, [employer] 1.2.840.1 53203.1.1 3.104.2.7 .3.037679 .8 [id number] [facility] 2023-04-18 08:00:00 2023-04-18 08:00:00 Outpatient R FARZANA SAUCEDA [facility] [id number] [facility] 2023-04-17 00:00:00 2023-04-17 00:00:00 Travel 1.2.840.1 71676.1.1 3.104.2.7 .3.941809 .8 1.2.840.114 350.1.13.10 4.2.7.3.698 084.8 [id number] [facility] 2023-04-11 13:00:00 2023-04-11 13:00:00 Outpatient R EMILIA SNOWDEN [facility] [id number] [facility] 2023-04-11 13:00:00 2023-04-11 13:00:00 Outpatient R EMILIA SNOWDEN [facility] [id number] [facility] 2023-04-04 08:00:00 2023-04-04 08:00:00 Outpatient R [facility] [id number] [facility] 2023-04-02 00:00:00 2023-04-02 00:00:00 Travel 1.2.840.1 40067.1.1 3.104.2.7 .3.386379 .8 1.2.840.114 350.1.13.10 4.2.7.3.698 084.8 [id number] [facility] 2023-03-09 00:00:00 2023-03-09 00:00:00 Telephone Elidia Cordero 1.2.840.1 27405.1.1 3.104.2.7 .3.148747 .8 [id number] [facility] 2023-03-08 00:00:00 2023-03-08 00:00:00 Telephone Elidia Cordero 1.2.840.1 58191.1.1 3.104.2.7 .3.165042 .8 [id number] [facility] 2023-02-28 10:15:00 2023-02-28 10:15:00 Outpatient SARA DELGADILLO KIMBERLY [facility] [id number] [facility] 2023-02-27 00:00:00 2023-02-27 00:00:00 Travel 1.2.840.1 88547.1.1 3.104.2.7 .3.475280 .8 1.2.840.114 350.1.13.10 4.2.7.3.698 084.8 [id number] [facility] 2023-02-15 10:30:00 2023-02-15 10:45:00 Landscape Photographer Visit Jewel Cunha [facility] 1.2.840.1 59590.1.1 3.104.2.7 .3.771808 .8 [id number] [facility] 2023-02-15 09:30:00 2023-02-15 10:00:00 Office Visit Jewel Cunha Abdullah Azzam 1.2.840.1 45183.1.1 3.104.2.7 .3.265062 .8 [id number] [facility] 2023-02-15 09:30:00 2023-02-15 09:30:00 Outpatient JEWEL JARVIS [facility] [id number] [facility] 2023-02-15 00:00:00 2023-02-15 00:00:00 Travel 1.2.840.1 18850.1.1 3.104.2.7 .3.560425 .8 1.2.840.114 350.1.13.10 4.2.7.3.698 084.8 [id number] [facility] 2023-01-23 13:00:00 2023-01-23 13:00:00 Outpatient R ARRIAGAJENNY RIZWAN [facility] [id number] [facility] 2023-01-22 10:15:00 2023-01-22 10:30:00 Landscape Photographer Visit Dexter Dias [facility] 1.2.840.1 66141.1.1 3.104.2.7 .3.838128 .8 [id number] [facility] 2023-01-22 09:30:00 2023-01-22 10:07:50 Outpatient R DEXTER DIAS [facility] [id number] [facility] 2023-01-22 00:00:00 2023-01-22 00:00:00 Orders Only Doctor Unassigned, [employer] 1.2.840.1 15224.1.1 3.104.2.7 .3.017339 .8 [id number] [facility] 2023-01-22 00:00:00 2023-01-22 00:00:00 Travel 1.2.840.1 55436.1.1 3.104.2.7 .3.605309 .8 1.2.840.114 350.1.13.10 4.2.7.3.698 084.8 [id number] [facility] 2023-01-15 00:00:00 2023-01-15 00:00:00 Telephone Elidia Cordero 1.2.840.1 52079.1.1 3.104.2.7 .3.214052 .8 [id number] [facility] 2023-01-12 00:00:00 2023-01-12 00:00:00 Patient Secure Msg Dominic Keita 1.2.840.1 80727.1.1 3.104.2.7 .3.178644 .8 [id number] [facility] 2022-12-29 09:30:00 2022-12-29 09:30:00 Outpatient R SHANNON ARRIAGAJESSIE COLBERTAN JENNY [facility] [id number] [facility] 2022-12-29 00:00:00 2022-12-29 00:00:00 Telephone Elidia Cordero 1.2.840.1 58354.1.1 3.104.2.7 .3.764399 .8 [id number] [facility] 2022-12-29 00:00:00 2022-12-29 00:00:00 Telephone Elidia Corderoreinierdedra 1.2.840.1 26431.1.1 3.104.2.7 .3.527124 .8 [id number] [facility] 2022-12-28 00:00:00 2022-12-28 00:00:00 Case Management Elidia Cordero 1.2.840.1 41786.1.1 3.104.2.7 .3.761015 .8 [id number] [facility] 2022-12-20 16:00:00 2022-12-20 16:46:31 Outpatient R [facility] [id number] [facility] 2022-12-20 09:49:08 2022-12-20 09:49:08 Outpatient [facility] [id number] Robert Arnol Viraj 2022-12-19 00:00:00 2022-12-19 00:00:00 Travel 1.2.840.1 57763.1.1 3.104.2.7 .3.788469 .8 1.2.840.114 350.1.13.10 4.2.7.3.698 084.8 [id number] [facility] 2022-12-18 09:30:00 2022-12-18 09:30:00 Outpatient R [facility] [id number] [facility] 2022-12-18 00:00:00 2022-12-18 00:00:00 Telephone Elidia Cordero 1.2840.1 88388.1.1 3.104.2.7 .3.649167 .8 [id number] [facility] 2022-12-14 00:00:00 2022-12-14 00:00:00 Patient Secure Msg Doctor Unassigned, [employer] 1.840.1 91590.1.1 3.104.2.7 .3.946605 .8 [id number] [facility] 2022-12-11 08:45:00 2022-12-11 08:45:00 Outpatient R [facility] [id number] [facility] 2022-12-10 00:00:00 2022-12-10 00:00:00 Outpatient GC_GCBZW_Ka diyala_S PRIV PRIV [id number] [facility] 2022-12-08 15:30:00 2022-12-08 15:30:00 Outpatient R JENNY ARRIAGA RIZWAN [facility] [id number] [facility] 2022-12-06 08:00:00 2022-12-06 08:00:00 Outpatient R ONEIDA MONTANA [facility] [id number] [facility] 2022-11-29 00:00:00 2022-11-29 00:00:00 Telephone Sharona Corderoklarissakarl [place] 1..840.1 32697.1.1 3.104.2.7 .3.678484 .8 [id number] [facility] 2022-11-27 00:00:00 2022-11-27 00:00:00 Telephone Sharona Corderoklarissakarl [place] 1.2840.1 63215.1.1 3.104.2.7 .3.191540 .8 [id number] [facility] 2022-11-27 00:00:00 2022-11-27 00:00:00 Telephone Elidia Cordero 1.2.840.1 98423.1.1 3.104.2.7 .3.668663 .8 [id number] [facility] 2022-11-23 00:00:00 2022-11-23 00:00:00 Telephone Elidia Cordero 1.2.840.1 34035.1.1 3.104.2.7 .3.710156 .8 [id number] [facility] 2022-11-23 00:00:00 2022-11-23 00:00:00 Telephone Elidia Cordero 1.2.840.1 06241.1.1 3.104.2.7 .3.983231 .8 [id number] [facility] 2022-11-22 09:30:00 2022-11-22 09:30:00 Outpatient R [facility] [id number] [facility] 2022-11-16 00:00:00 2022-11-16 00:00:00 Telephone Elidai Cordero 1.2.840.1 11786.1.1 3.104.2.7 .3.604364 .8 [id number] [facility] 2022-11-16 00:00:00 2022-11-16 00:00:00 Patient Secure Msg Dominic Keita 1.2.840.1 22356.1.1 3.104.2.7 .3.192616 .8 [id number] [facility] 2022-11-13 06:59:00 2022-11-13 09:48:00 [id number] 2022-11-13 06:59:00 2022-11-13 09:48:00 Hospital Encounter Dominic Keita 1.2.840.1 91911.1.1 3.104.2.7 .3.082025 .8 [id number] [facility] 2022-11-13 07:58:00 2022-11-13 08:33:00 Anesthesia Event Hunter Cruz Joan 1.2.840.1 94267.1.1 3.104.2.7 .3.727387 .8 [id number] [facility] 2022-11-13 07:15:00 2022-11-13 08:15:00 Surgery Dominic Keita 1.2.840.1 13654.1.1 3.104.2.7 .3.688147 .8 [id number] [facility] 2022-11-13 00:00:00 2022-11-13 00:00:00 Orders Only Doctor Unassigned, [employer] 1.2.840.1 57215.1.1 3.104.2.7 .3.623076 .8 [id number] [facility] 2022-11-13 00:00:00 2022-11-13 00:00:00 Telephone Dominic Keita 1.2.840.1 82514.1.1 3.104.2.7 .3.956346 .8 [id number] [facility] 2022-11-13 00:00:00 2022-11-13 00:00:00 Travel 1.2.840.1 23385.1.1 3.104.2.7 .3.761446 .8 1.2.840.114 350.1.13.10 4.2.7.3.698 084.8 [id number] [facility] 2022-11-10 00:00:00 2022-11-10 00:00:00 Outpatient R RADIOLOGY [facility] [id number] [facility] 2022-11-10 00:00:00 2022-11-10 00:00:00 Patient Secure Msg Dominic Keita 1.2.840.1 17157.1.1 3.104.2.7 .3.598117 .8 [id number] [facility] 2022-11-09 00:00:00 2022-11-09 00:00:00 Patient Secure Msg Doctor Unassigned, [employer] 1.2.840.1 89012.1.1 3.104.2.7 .3.588354 .8 [id number] [facility] 2022-11-07 00:00:00 2022-11-07 00:00:00 Patient Secure Msg Doctor Unassigned, [employer] 1.2.840.1 16362.1.1 3.104.2.7 .3.302462 .8 [id number] [facility] 2022-11-03 10:36:00 2022-11-03 13:16:00 Emergency X HIMANSHU NEWMANALA [facility] ERT [id number] [facility] 2022-11-03 10:36:00 2022-11-03 13:16:00 Emergency Deloris Dora G 1.2.840.1 27608.1.1 3.104.2.7 .3.126295 .8 [id number] [facility] 2022-11-03 00:00:00 2022-11-03 00:00:00 Travel 1.2.840.1 85345.1.1 3.104.2.7 .3.480658 .8 1.2.840.114 350.1.13.10 4.2.7.3.698 084.8 [id number] [facility] 2022-10-30 00:00:00 2022-10-30 00:00:00 Case Management Elidia Cordero 1.2.840.1 16129.1.1 3.104.2.7 .3.879372 .8 [id number] [facility] 2022-10-19 08:30:00 2022-10-19 08:45:00 Landscape Photographer Visit Jewel Cunha [facility] 1.2.840.1 58456.1.1 3.104.2.7 .3.612234 .8 [id number] [facility] 2022-10-19 07:30:00 2022-10-19 08:15:30 Outpatient R JEWEL CUNHA [facility] [id number] [facility] 2022-10-19 07:30:00 2022-10-19 08:15:30 [facility].2.[facility].1 70290.1.1 3.104.2.7 .3.782648 .8 [id number] [facility] 2022-10-19 00:00:00 2022-10-19 00:00:00 Orders Only Doctor Unassigned, [employer] 1.2.840.1 25426.1.1 3.104.2.7 .3.718393 .8 [id number] [facility] 2022-10-18 00:00:00 2022-10-18 00:00:00 Travel 1.2.840.1 33727.1.1 3.104.2.7 .3.349811 .8 1.2.840.114 350.1.13.10 4.2.7.3.698 084.8 [id number] [facility] 2022-10-12 09:56:06 2022-10-12 09:56:06 Outpatient [facility] [id number] Robert F Viraj 2022-10-12 00:00:00 2022-10-12 00:00:00 Orders Only Doctor Unassigned, [employer] 1.2.840.1 32805.1.1 3.104.2.7 .3.086096 .8 [id number] [facility] 2022-10-05 10:15:00 2022-10-05 10:30:00 Landscape Photographer Visit Kath Vences, [facility] Main 1.2.840.1 78117.1.1 3.104.2.7 .3.115116 .8 [id number] [facility] 2022-10-05 10:15:00 2022-10-05 10:15:00 Outpatient R KATH VENCES [facility] [id number] [facility] 2022-10-04 09:30:00 2022-10-04 10:30:11 Outpatient R DEXTER DIAS [facility] [id number] [facility] 2022-10-04 00:00:00 2022-10-04 00:00:00 Orders Only Doctor Unassigned, [employer] 1.2.840.1 38803.1.1 3.104.2.7 .3.338426 .8 [id number] [facility] 2022-10-04 00:00:00 2022-10-04 00:00:00 Travel 1.2.840.1 67192.1.1 3.104.2.7 .3.651608 .8 1.2.840.114 350.1.13.10 4.2.7.3.698 084.8 [id number] [facility] 2022-10-02 00:00:00 2022-10-02 00:00:00 Travel 1.2.840.1 12389.1.1 3.104.2.7 .3.279978 .8 1.2.840.114 350.1.13.10 4.2.7.3.698 084.8 [id number] [facility] 2022-09-06 08:45:00 2022-09-06 08:45:00 Outpatient R SARA HESTER KIMBERLY [facility] [id number] [facility] 2022-09-06 00:00:00 2022-09-06 00:00:00 Travel 1.2.840.1 09193.1.1 3.104.2.7 .3.393748 .8 1.2.840.114 350.1.13.10 4.2.7.3.698 084.8 [id number] [facility] 2022-07-26 11:00:00 2022-07-26 11:15:00 Landscape Photographer Visit Pathology Pcp-Lab 1.2.840.1 89444.1.1 3.104.2.7 .3.713400 .8 [id number] [facility] 2022-07-26 08:45:00 2022-07-26 09:37:46 Outpatient SARA DELGADILLO KIMBERLY [facility] [id number] [facility] 2022-07-26 00:00:00 2022-07-26 00:00:00 Orders Only Doctor Unassigned, [employer] 1.2.840.1 82280.1.1 3.104.2.7 .3.560792 .8 [id number] [facility] 2022-07-26 00:00:00 2022-07-26 00:00:00 Travel 1.2.840.1 91792.1.1 3.104.2.7 .3.282371 .8 1.2.840.114 350.1.13.10 4.2.7.3.698 084.8 [id number] [facility] 2022-07-24 13:24:12 2022-07-24 13:24:12 Outpatient SFA SFA [id number] Robert Ambrose Viraj 2022-06-27 13:49:18 2022-06-27 13:49:18 Outpatient SFA SFA [id number] [id number] Robert Cali 2022-06-21 08:52:50 2022-06-21 08:52:50 Outpatient SFA SFA [id number] Robert Ambrose Viraj 2022-06-15 15:23:34 2022-06-15 15:23:34 Outpatient SFA SFA [id number] Robert Ambrose [place] 2022-05-31 08:45:00 2022-05-31 08:45:00 Outpatient SARA DELGADILLO KIMBERLY [facility] [id number] [facility] 2022-05-30 11:55:27 2022-05-30 11:55:27 Outpatient [facility] [id number] Robert Ambrose [place] 2022-05-23 11:17:29 2022-05-23 11:17:29 Outpatient [facility] [id number] Robert Ambrose [place] 2022-05-12 08:06:11 2022-05-12 08:06:11 Outpatient [facility] [id number] Robert Ambrose [place] 2022-05-11 13:45:44 2022-05-11 13:45:44 Outpatient [facility] [id number] Robert Ambrose [place] 2022-04-08 00:00:00 2022-04-08 00:00:00 Orders Only Doctor Unassigned, [employer] 1.2.840.1 75379.1.1 3.104.2.7 .3.287173 .8 [id number] [facility] 2022-02-21 00:00:00 2022-02-21 00:00:00 Orders Only Doctor Unassigned, [employer] 1.2.840.1 96952.1.1 3.104.2.7 .3.928585 .8 [id number] [facility] 2022-02-15 13:30:00 2022-02-15 13:45:00 Landscape Photographer Visit Pathology Pcp-Lab 1.2.840.1 28047.1.1 3.104.2.7 .3.309875 .8 [id number] [facility] 2022-02-15 08:45:00 2022-02-15 10:52:26 Outpatient DEXTER MIRELES [facility] [id number] [facility] 2022-02-15 00:00:00 2022-02-15 00:00:00 Travel 1.2.840.1 08907.1.1 3.104.2.7 .3.006866 .8 1.2.840.114 350.1.13.10 4.2.7.3.698 084.8 [id number] [facility] 2022-01-11 11:00:00 2022-01-11 12:39:46 Outpatient SARA DELGADILLO KIMBERLY [facility] [id number] [facility] 2022-01-11 00:00:00 2022-01-11 00:00:00 Orders Only Doctor Unassigned, [employer] 1.2.840.1 10200.1.1 3.104.2.7 .3.404794 .8 [id number] [facility] 2022-01-11 00:00:00 2022-01-11 00:00:00 Travel 1.2.840.1 98785.1.1 3.104.2.7 .3.372115 .8 1.2.840.114 350.1.13.10 4.2.7.3.698 084.8 [id number] [facility] 2021-11-24 09:30:00 2021-11-24 09:30:00 Outpatient IGOR Castaneda RAI [facility] [id number] [facility] 2021-11-16 11:00:00 2021-11-16 11:00:00 Outpatient SARA DELGADILLO KIMBERLY [facility] [id number] [facility] 2021-10-26 08:00:00 2021-10-26 08:00:00 Outpatient DEXTER MIRELES [facility] [id number] [facility] 2021-10-20 10:00:00 2021-10-20 10:00:00 Outpatient IGOR Castaneda RAI [facility] [id number] [facility] 2021-10-03 14:30:00 2021-10-03 14:30:00 Outpatient R DAVIDSON SUTHERLAND [facility] [id number] [facility] 2021-09-21 09:30:00 2021-09-21 09:30:00 Outpatient R DEXTER DIAS [facility] [id number] [facility] 2021-08-24 09:30:00 2021-08-24 10:41:34 [facility] [id number] [facility] 2021-08-24 00:00:00 2021-08-24 00:00:00 Travel 1.2.840.1 88747.1.1 3.104.2.7 .3.143357 .8 1.2.840.114 350.1.13.10 4.2.7.3.698 084.8 [id number] [facility] 2021-07-25 09:00:00 2021-07-25 09:00:00 Outpatient R DEXTER DIAS [facility] [id number] [facility] 2021-06-22 11:15:00 2021-06-22 12:18:05 Outpatient R [facility] [id number] [facility] 2021-06-22 11:15:00 2021-06-22 11:15:00 Outpatient R SARA HESTER KIMBERLY [facility] [id number] [facility] 2021-06-22 00:00:00 2021-06-22 00:00:00 Travel 1.2.840.1 87734.1.1 3.104.2.7 .3.293784 .8 1.2.840.114 350.1.13.10 4.2.7.3.698 084.8 [id number] [facility] 2021-06-20 11:15:00 2021-06-20 11:15:00 Outpatient R LARISSA [facility] [id number] [facility] 2021-06-20 11:15:2021-06-20 11:15:00 Outpatient R DEXTER DIAS [facility] [id number] [facility] 2021-06-08 09:20:00 2021-06-08 09:20:00 Outpatient R HILARY MOORE GREGORKEAGAN EDITHNoa [facility] [id number] [facility] 2021-06-08 00:00:00 2021-06-08 00:00:00 Patient Secure Igor Saavedra [facility] 1.2.840.114 350.1.13.10 4.2.7.2.686 [id number] [facility] 2021-06-07 09:13:00 2021-06-07 10:50:00 Emergency X MONROYGIGI [facility] ERT [id number] [facility] 2021-06-07 09:13:00 2021-06-07 10:50:00 Emergency Gigi Monroy [facility] 1.2.840.114 350.1.13.10 4.2.7.2.686 [id number] [facility] 2021-06-07 09:13:00 2021-06-07 10:50:00 Emergency Gigi 1.2.840.1 48164.1.1 3.104.2.7 .3.317352 .8 [id number] [facility] 2021-06-07 00:00:00 2021-06-07 00:00:00 Outpatient Tonya IGOR SAAVEDRA [facility] [id number] [facility] 2021-06-07 00:00:00 2021-06-07 00:00:00 Orders Only Doctor Unassigned, [employer] [facility] 1.2.840.114 350.1.13.10 4.2.7.2.686 [id number] [facility] 2021-06-07 00:00:00 2021-06-07 00:00:00 Travel 1.2.840.1 22409.1.1 3.104.2.7 .3.400296 .8 1.2.840.114 350.1.13.10 4.2.7.3.698 084.8 [id number] [facility] 2021-06-07 00:00:00 2021-06-07 00:00:00 Orders Only Doctor Unassigned, [employer] 1.2.840.1 96515.1.1 3.104.2.7 .3.322427 .8 [id number] [facility] 2021-06-03 00:00:00 2021-06-03 00:00:00 Travel 1.2.840.1 19999.1.1 3.104.2.7 .3.021303 .8 1.2.840.114 350.1.13.10 4.2.7.3.698 084.8 [id number] [facility] 2021-05-27 00:00:00 2021-05-27 00:00:00 Outpatient R IGOR SAAVEDRA [facility] [id number] [facility] 2021-05-27 00:00:00 2021-05-27 00:00:00 Outpatient IGOR Castaneda RAI [facility] [id number] [facility] 2021-05-25 00:00:00 2021-05-25 00:00:00 Patient Secure Msg Doctor Unassigned, [employer] [facility] 1.2.840.114 350.1.13.10 4.2.7.2.686 [id number] [facility] 2021-05-25 00:00:00 2021-05-25 00:00:00 Patient Secure Msg Doctor Unassigned, [employer] 1.2.840.1 63151.1.1 3.104.2.7 .3.606498 .8 [id number] [facility] 2021-05-20 00:00:00 2021-05-20 00:00:00 Telephone Zane Martinez 1.2.840.1 48714.1.1 3.104.2.7 .3.837939 .8 [id number] [facility] 2021-05-20 00:00:00 2021-05-20 00:00:00 Telephone Zane Martinez 1.2.840.1 82379.1.1 3.104.2.7 .3.202788 .8 [id number] [facility] 2021-05-18 00:00:00 2021-05-18 00:00:00 Travel 1.2.840.1 16974.1.1 3.104.2.7 .3.219082 .8 1.2.840.114 350.1.13.10 4.2.7.3.698 084.8 [id number] [facility] 2021-05-18 00:00:00 2021-05-18 00:00:00 Travel 1.2.840.1 58877.1.1 3.104.2.7 .3.482691 .8 1.2.840.114 350.1.13.10 4.2.7.3.698 084.8 [id number] [facility] 2021-05-17 13:15:00 2021-05-17 13:30:00 Landscape Photographer Visit Pcp-Lab Igor Saavedra [facility] 1.2.840.114 350.1.13.10 4.2.7.2.686 [id number] [facility] 2021-05-17 13:15:00 2021-05-17 13:30:00 Landscape Photographer Visit Igor Saavedra Pcp-Lab 1.2.840.1 54437.1.1 3.104.2.7 .3.768797 .8 [id number] [facility] 2021-05-17 13:15:00 2021-05-17 13:30:00 Landscape Photographer Visit Igor Saavedra Pcp-Lab 1.2.840.1 01423.1.1 3.104.2.7 .3.515936 .8 [id number] [facility] 2021-05-17 09:00:00 2021-05-17 10:25:05 Outpatient R IGOR SAAVEDRA [facility] [id number] [facility] 2021-05-17 09:00:00 2021-05-17 10:25:05 Office Visit Igor Saavedra Neeharika 1.2.840.1 15431.1.1 3.104.2.7 .3.438113 .8 [id number] [facility] 2021-05-17 09:00:00 2021-05-17 10:25:05 Outpatient R IGOR SAAVEDRA [facility] [id number] [facility] 2021-05-17 09:30:00 2021-05-17 09:30:00 Outpatient R IGOR SAAVEDRA [facility] [id number] [facility] 2021-05-17 00:00:00 2021-05-17 00:00:00 Travel 1.2.840.1 52945.1.1 3.104.2.7 .3.095641 .8 1.2.840.114 350.1.13.10 4.2.7.3.698 084.8 [id number] [facility] 2021-05-17 00:00:00 2021-05-17 00:00:00 Travel 1.2.840.1 23429.1.1 3.104.2.7 .3.042685 .8 1.2.840.114 350.1.13.10 4.2.7.3.698 084.8 [id number] [facility] 2021-04-26 09:00:00 2021-04-26 09:00:00 Outpatient R [facility] [id number] [facility] 2021-04-26 09:00:00 2021-04-26 09:00:00 Outpatient R WENDY, AVELINO [facility] [id number] [facility] 2021-04-20 08:45:00 2021-04-20 08:45:00 Outpatient SARA DELGADILLO KIMBERLY [facility] [id number] [facility] 2021-04-11 08:40:00 2021-04-11 08:40:00 Outpatient SALLY FIGUEROA HOWARD [facility] [id number] [facility] 2021-04-11 08:40:00 2021-04-11 08:40:00 Outpatient SALLY FIGUEROA HOWARD [facility] [id number] [facility] 2021-03-21 08:00:00 2021-03-21 08:00:00 Outpatient SALLY FIGUEROA HOWARD [facility] [id number] [facility] 2021-03-17 00:00:00 2021-03-17 00:00:00 Patient Secure Msg Doctor Unassigned, [employer] [facility] 1.2.840.114 350.1.13.10 4.2.7.2.686 [id number] [facility] 2021-03-17 00:00:00 2021-03-17 00:00:00 Patient Secure Msg Doctor Unassigned, [employer] 1..840.1 51330.1.1 3.104.2.7 .3.900786 .8 [id number] [facility] 2021-03-17 00:00:00 2021-03-17 00:00:00 Patient Secure Msg Doctor Unassigned, [employer] 1.2.840.1 26064.1.1 3.104.2.7 .3.033214 .8 [id number] [facility] 2021-03-16 13:15:00 2021-03-16 13:30:00 Landscape Photographer Visit Salbador Lockwood Pcp-Lab 1.2.840.1 06300.1.1 3.104.2.7 .3.549201 .8 [id number] [facility] 2021-03-16 13:15:00 2021-03-16 13:30:00 Landscape Photographer Visit Salbador Lockwood Pcp-Lab 1.2.840.1 99701.1.1 3.104.2.7 .3.995374 .8 [id number] [facility] 2021-03-16 13:15:00 2021-03-16 13:15:00 Outpatient SALBADOR CRONIN [facility] [id number] [facility] 2021-03-16 12:00:00 2021-03-16 12:09:51 Outpatient SARA DELGADILLO KIMBERLY [facility] [id number] [facility] 2021-03-16 12:00:00 2021-03-16 12:09:51 Outpatient SARA DELGADILLO KIMBERLY [facility] [id number] [facility] 2021-03-16 12:00:00 2021-03-16 12:00:00 Outpatient SARA DELGADILLO KIMBERLY [facility] [id number] [facility] 2021-03-16 00:00:00 2021-03-16 00:00:00 Travel 1.2.840.1 29557.1.1 3.104.2.7 .3.659276 .8 1.2.840.114 350.1.13.10 4.2.7.3.698 084.8 [id number] [facility] 2021-03-16 00:00:00 2021-03-16 00:00:00 Travel 1.2.840.1 79333.1.1 3.104.2.7 .3.709438 .8 1.2.840.114 350.1.13.10 4.2.7.3.698 084.8 [id number] [facility] 2021-03-11 09:44:00 2021-03-11 13:06:00 Emergency X RE CONNORRA [facility] ERT [id number] [facility] 2021-03-11 09:44:00 2021-03-11 13:06:00 Emergency Dragan Halima Cates 1.2.840.1 86228.1.1 3.104.2.7 .3.781988 .8 [id number] [facility] 2021-03-11 09:44:00 2021-03-11 13:06:00 Emergency X HALIMA CONNOR [facility] ERT [id number] [facility] 2021-03-11 09:44:00 2021-03-11 13:06:00 Emergency Halima Connor 1.2.840.1 18027.1.1 3.104.2.7 .3.958928 .8 [id number] [facility] 2021-03-11 09:44:00 2021-03-11 13:06:00 Emergency X HALIMA CONNOR [facility] ERT [id number] [facility] 2021-03-11 09:44:00 2021-03-11 09:44:00 Emergency X HALIMA CONNOR [facility] ERT [id number] [facility] 2021-03-11 00:00:00 2021-03-11 00:00:00 Travel 1.2.840.1 04037.1.1 3.104.2.7 .3.391033 .8 1.2.840.114 350.1.13.10 4.2.7.3.698 084.8 [id number] [facility] 2021-03-11 00:00:00 2021-03-11 00:00:00 Travel 1.2.840.1 15665.1.1 3.104.2.7 .3.156707 .8 1.2.840.114 350.1.13.10 4.2.7.3.698 084.8 [id number] [facility] 2021-03-08 15:00:00 2021-03-08 15:15:00 Landscape Photographer Visit Salbador Lockwood Pcp-Lab 1.2.840.1 63805.1.1 3.104.2.7 .3.727874 .8 [id number] [facility] 2021-03-08 15:00:00 2021-03-08 15:15:00 Landscape Photographer Visit Salbador Lockwood Pcp-Lab 1.2.840.1 80326.1.1 3.104.2.7 .3.074281 .8 [id number] [facility] 2021-03-08 15:00:00 2021-03-08 15:00:00 Outpatient R SALBADOR LOCKWOOD [facility] [id number] [facility] 2021-01-31 10:15:00 2021-01-31 10:55:06 [facility] [id number] [facility] 2020-12-29 08:00:00 2020-12-29 08:41:00 [facility] [id number] [facility] 2020-12-29 08:00:00 2020-12-29 08:41:00 Outpatient R SELF [facility] [id number] [facility] 2020-12-29 00:00:00 2020-12-29 00:00:00 Travel 1.2.840.1 60430.1.1 3.104.2.7 .3.520601 .8 1.2.840.114 350.1.13.10 4.2.7.3.698 084.8 [id number] [facility] 2020-12-29 00:00:00 2020-12-29 00:00:00 Travel 1.2.840.1 26034.1.1 3.104.2.7 .3.726968 .8 1.2.840.114 350.1.13.10 4.2.7.3.698 084.8 [id number] [facility] 2020-12-22 09:30:00 2020-12-22 09:30:00 Outpatient R DEXTER DIAS [facility] [id number] [facility] 2020-12-22 09:30:00 2020-12-22 09:30:00 Outpatient R LARISSA [facility] [id number] [facility] 2020-11-26 00:00:00 2020-11-26 00:00:00 Orders Only Doctor Unassigned, [employer] [facility] 1.2.840.114 350.1.13.10 4.2.7.2.686 [id number] [id number] [facility] 2020-11-10 09:30:00 2020-11-10 09:30:00 Outpatient R ROBERT NOWAK [facility] [id number] [facility] 2020-11-10 00:00:00 2020-11-10 00:00:00 Orders Only Doctor Unassigned, [employer] 1.2.840.1 59136.1.1 3.104.2.7 .3.032470 .8 [id number] [facility] 2020-11-10 00:00:00 2020-11-10 00:00:00 Travel 1.2.840.1 07099.1.1 3.104.2.7 .3.720375 .8 1.2.840.114 350.1.13.10 4.2.7.3.698 084.8 [id number] [facility] 2020-10-11 08:00:00 2020-10-11 08:00:00 Outpatient R LARISSA [facility] [id number] [facility] 2020-10-11 00:00:00 2020-10-11 00:00:00 Travel 1.2.840.1 22965.1.1 3.104.2.7 .3.305195 .8 1.2.840.114 350.1.13.10 4.2.7.3.698 084.8 [id number] [facility] 2020-09-13 08:00:00 2020-09-13 08:00:00 Outpatient DEXTER MIRELES [facility] [id number] [facility] 2020-09-13 00:00:00 2020-09-13 00:00:00 Travel 1.2.840.1 40143.1.1 3.104.2.7 .3.179675 .8 1.2.840.114 350.1.13.10 4.2.7.3.698 084.8 [id number] [facility] 2020-09-02 16:12:00 2020-09-02 20:21:00 Emergency Patti [facility] 1.2.840.114 350.1.13.10 4.2.7.2.686 [id number] 2020-09-02 16:12:00 2020-09-02 20:21:00 Emergency Patti Rose 1.2.840.1 10525.1.1 3.104.2.7 .3.988527 .8 [id number] [facility] 2020-09-02 00:00:00 2020-09-02 00:00:00 Orders Only Doctor Unassigned, [employer] [facility] 1.2.840.114 350.1.13.10 4.2.7.2.686 [id number] [id number] 2020-09-02 00:00:00 2020-09-02 00:00:00 Travel 1.2.840.1 [id number] 3.104.2.7 .[id number] .8 1.2.840.114 350.1.13.10 4.2.7.3.698 [id number] [facility] 2020-09-02 00:00:00 2020-09-02 00:00:00 Orders Only Doctor Unassigned, [employer] 1.2.840.1 [id number] 3.104.2.7 .[id number] [facility] 2020-08-25 09:15:00 2020-08-25 09:15:00 Outpatient R [facility] [id number] [facility] 2020-08-09 08:45:00 2020-08-09 08:45:00 Outpatient R DEXTER DIAS [facility] [id number] [facility] 2020-06-28 13:45:00 2020-06-28 13:45:00 Outpatient R SALBADOR LOCKWOOD [facility] [id number] [facility] 2020-06-21 15:15:00 2020-06-21 15:15:00 [facility] [id number] 2020-06-07 08:45:00 2020-06-07 08:45:00 [facility] [id number] [facility] 2020-05-25 08:30:00 2020-05-25 08:30:00 Outpatient R CRISTO MARTINEZ [facility] [id number] [facility] 2020-03-15 13:00:00 2020-03-15 13:00:00 Outpatient R SALBADOR LOCKWOOD [facility] [id number] [facility] 2020-03-08 13:00:00 2020-03-08 13:00:00 [facility] [id number] [facility] 2020-02-16 11:00:00 2020-02-16 11:00:00 [facility] [id number] [facility] 2020-01-27 11:45:00 2020-01-27 11:45:00 Outpatient R SELFDEXTER [facility] [id number] [facility] 2020-01-19 08:00:00 2020-01-19 08:00:00 Outpatient R DEXTER DIAS [facility] [id number] [facility] 2019-12-22 08:45:00 2019-12-22 08:45:00 Outpatient R DEXTER DIAS [facility] [id number] [facility] 2019-12-05 10:45:00 2019-12-05 10:45:00 Outpatient R JEWEL MORAES [facility] [id number] [facility] 2019-10-23 09:15:00 2019-10-23 09:15:00 Outpatient R KATH DELGADO [facility] [id number] [facility] 2019-10-15 11:30:00 2019-10-15 11:30:00 Outpatient R SHE ROBERT [facility] [id number] [facility] 2019-10-01 14:30:00 2019-10-01 14:30:00 Outpatient R ROBERT NOWAK [facility] [id number] [facility] 2019-09-01 08:45:00 2019-09-01 08:45:00 Outpatient R DEXTER DIAS [facility] [id number] [facility] 2019-08-06 13:00:00 2019-08-06 13:00:00 Outpatient R SHALOM ANGELA [facility] [id number] [facility] Results Test Description Test Time Test [...] caliber. The superior cerebellar arteriesare patent. The DIGITAL STRATEGY MANAGER are patent bilaterally. No sizable posteriorcommunicating arteries are seen. The petrous, cavernous and supraclinoid internal carotid segments arewidely patent. The GIBSON and MCA are patent bilaterally. An anteriorcommunicating artery is seen. The dural venous sinuses are opacified and unremarkable. [facility] CT ACUTE STROKE ANGIOGRAM NECK 13:46:46 CT [...] caliber. The superior cerebellar arteriesare patent. The DIGITAL STRATEGY MANAGER are patent bilaterally. No sizable posteriorcommunicating arteries are seen. The petrous, cavernous and supraclinoid internal carotid segments arewidely patent. The GIBSON and MCA are patent bilaterally. An anteriorcommunicating artery is seen. The dural venous sinuses are opacified and unremarkable. [facility] CT ACUTE STROKE ANGIOGRAM HEAD 13:46:46 CT [...] caliber. The superior cerebellar arteriesare patent. The DIGITAL STRATEGY MANAGER are patent bilaterally. No sizable posteriorcommunicating arteries are seen. The petrous, cavernous and supraclinoid internal carotid segments arewidely patent. The GIBSON and MCA are patent bilaterally. An anteriorcommunicating artery is seen. The dural venous sinuses are opacified and unremarkable. [facility] CT ACUTE STROKE ANGIOGRAM NECK 13:46:46 CT [...] caliber. The superior cerebellar arteriesare patent. The DIGITAL STRATEGY MANAGER are patent bilaterally. No sizable posteriorcommunicating arteries are seen. The petrous, cavernous and supraclinoid internal carotid segments arewidely patent. The GIBSON and MCA are patent bilaterally. An anteriorcommunicating artery is seen. The dural venous sinuses are opacified and unremarkable. [facility] CT ACUTE STROKE HEAD WO CONTRAST 13:44:48 [...] and central skull base are unremarkable. [facility] CT ACUTE STROKE HEAD WO CONTRAST 13:44:48 [...] Thecalvarium and central skull base are unremarkable. [facility]2024-04-26 04:29:26* Test Item Value Reference Range Interpretation Comme nts Smiley (test code = [id number]) 0.6 mmol/L 0.6-1.2 ZAINAB (test code = ZAINAB) Toxic Range: ? Greater than 1.2 mmol/L Lab Interpretation (test code = 03082-0) Normal [facility]2024-04-26 04:29:26* Test Item Value Reference Range Interpretation Comme nts Smiley (test code = 8956614126) 0.6 mmol/L 0.6-1.2 ZAINAB (test code = ZAINAB) Toxic Range: ? Greater than 1.2 mmol/L Lab Interpretation (test code = 66438-4) Normal [facility]2024-04-26 04:29:26* Test Item Value Reference Range Interpretation Comme nts Smiley (test code = 2043073476) 0.6 mmol/L 0.6-1.2 ZAINAB (test code = ZAINAB) Toxic Range: ? Greater than 1.2 mmol/L Lab Interpretation (test code = 60538-6) [facility]2024-04-26 04:29:26* Test Item Value Reference Range Interpretation Comme nts Smiley (test code = 1498739114) 0.6 mmol/L 0.6-1.2 ZAINAB (test code = ZAINAB) Toxic Range: ? Greater than 1.2 mmol/L Lab Interpretation (test code = 80276-2) [address]04-26 04:29:26* Test Item Value Reference Range Interpretation Comme nts Smiley (test code = 2321167259) 0.6 mmol/L 0.6-1.2 ZAINAB (test code = ZAINAB) Toxic Range: ? Greater than 1.2 mmol/L Lab Interpretation (test code = 04687-7) Normal [facility]2024-04-26 04:29:26* Test Item Value Reference Range Interpretation Comme nts Smiley (test code = 1817850015) 0.6 mmol/L 0.6-1.2 ZAINAB (test code = ZAINAB) Toxic Range: ? Greater than 1.2 mmol/L Lab Interpretation (test code = 04240-6) [facility]2024-04-26 04:29:26* Test Item Value Reference Range Interpretation Comme nts Smiley (test code = 9218893912) 0.6 mmol/L 0.6-1.2 ZAINAB (test code = ZAINAB) Toxic Range: ? Greater than 1.2 mmol/L Lab Interpretation (test code = 18246-1) [facility]2024-04-26 04:29:26* Test Item Value Reference Range Interpretation Comme nts Smiley (test code = 8866687703) 0.6 mmol/L 0.6-1.2 ZAINAB (test code = ZAINAB) Toxic Range: ? Greater than 1.2 mmol/L Lab Interpretation (test code = 02679-6) [facility]2024-04-26 03:33:22 ALCOHOL<10mg/dL06/07/2023 10:33 PM CDTUTMB LABORATORY SERVICESToxic Greater than or equal to 80 mg/dL. NOTE: Whole blood values are approximately 10% to 15% lower than serum and plasma.[facility]2024-04-26 03:33:22ALCOHOL<10mg/dL06/07/2023 10:33 PM CDTUTMB LABORATORY SERVICESToxic Greater than or equal to 80 mg/dL. NOTE: Whole blood values are approximately 10% to 15% lower than serum and plasma.[facility] 2023-06-08 03:33:22ALCOHOL<10mg/dL06/07/2023 10:33 PM CDTUTMB LABORATORY SERVICESToxic Greater than or equal to 80 mg/dL. NOTE: Whole blood values are approximately 10% to 15% lower than serum and plasma.[facility]2024-04-26 03:33:22ALCOHOL<10mg/dL06/07/2023 10:33 PM CDTUTMB LABORATORY SERVICESToxic Greater than or equal to 80 mg/dL. NOTE: Whole blood values are approximately 10% to 15% lower than serum and plasma.[facility]2024-04-26 03:33:22ALCOHOL<10mg/dL06/07/2023 10:33 PM CDTUTMB LABORATORY SERVICESToxic Greater than or equal to 80 mg/dL. NOTE: Whole blood values are approximately 10% to 15% lower than serum and plasma. [facility]2024-04-26 03:33:22 ALCOHOL<10mg/dL06/07/2023 10:33 PM CDTUTMB LABORATORY SERVICESToxic Greater than or equal to 80 mg/dL. NOTE: Whole blood values are approximately 10% to 15% lower than serum and plasma.[facility]2024-04-26 03:33:22ALCOHOL<10mg/dL06/07/2023 10:33 PM CDTUTMB LABORATORY SERVICESToxic Greater than or equal to 80 mg/dL. NOTE: Whole blood values are approximately 10% to 15% lower than serum and plasma.[facility] 2023-06-08 03:33:22ALCOHOL<10mg/dL06/07/2023 10:33 PM CDTUTMB LABORATORY SERVICESToxic Greater than or equal to 80 mg/dL. NOTE: Whole blood values are approximately 10% to 15% lower than serum and plasma.[address]04-26 03:33:22ALCOHOL<10mg/dL06/07/2023 10:33 PM CDTUT LABORATORY SERVICESToxic Greater than or equal to 80 mg/dL. NOTE: Whole blood values are approximately 10% to 15% lower than serum and plasma.[facility] I - Code [id number] 03:15:34* Test Item Value Reference Range Interpretation Comme nts TROPONIN I (test code = 0970415975) 0.003 ng/mL <=0.034 ZAINAB (test code = [...] of biotin. Lab Interpretation (test code = 58023-5) Normal [facility] I - Code [id number] 03:15:34* Test Item Value Reference Range Interpretation Comme nts TROPONIN I (test code = 5218480843) 0.003 ng/mL <=0.034 ZAINAB (test code = [...] of biotin. Lab Interpretation (test code = 65855-3) Normal [facility] I - Code [id number] 03:15:34* Test Item Value Reference Range Interpretation Comme nts TROPONIN I (test code = 6183325198) 0.003 ng/mL <=0.034 ZAINAB (test code = [...] of biotin. Lab Interpretation (test code = 97972-8) Normal [facility] I - Code [id number] 03:15:34* Test Item Value Reference Range Interpretation Comme nts TROPONIN I (test code = 7975410991) 0.003 ng/mL <=0.034 ZAINAB (test code = [...] of biotin. Lab Interpretation (test code = 99741-7) Normal [facility] I - Code [id number] 03:15:34* Test Item Value Reference Range Interpretation Comme nts TROPONIN I (test code = 8614055025) 0.003 ng/mL <=0.034 ZAINAB (test code = [...] of biotin. Lab Interpretation (test code = 82040-3) Normal [facility] I - Code [id number] 03:15:34* Test Item Value Reference Range Interpretation Comme nts TROPONIN I (test code = 9955620525) 0.003 ng/mL <=0.034 ZAINAB (test code = [...] of biotin. Lab Interpretation (test code = 60660-9) Normal [facility] I - Code [id number] 03:15:34* Test Item Value Reference Range Interpretation Comme nts TROPONIN I (test code = 4616028792) 0.003 ng/mL <=0.034 ZAINAB (test code = [...] of biotin. Lab Interpretation (test code = 36957-9) Normal [facility] I - Code [id number] 03:15:34* Test Item Value Reference Range Interpretation Comme nts TROPONIN I (test code = 1433806766) 0.003 ng/mL <=0.034 ZAINAB (test code = [...] of biotin. Lab Interpretation (test code = 56173-9) Normal [facility] I - Code [id number] 03:15:34* Test Item Value Reference Range Interpretation Comme nts TROPONIN I (test code = 4306443768) 0.003 ng/mL <=0.034 ZAINAB (test code = [...] of biotin. Lab Interpretation (test code = 97654-1) [facility] (NA, K, CL, CO2, Glucose, BUN, Creatinine, CA) - Code [id number] 03:03:47* Test Item Value Reference Range Interpretation Comme nts NA (test code = 0058823983) 135 mmol/L 135-145 K (test code = 7604938658) 4.3 mmol/L 3.5-5.0 CL (test code = 0058787821) 103 mmol/L 98-108 CO2 TOTAL (test code = 8299102209) 28 mmol/L 23-31 AGAP (test code = 9478962020) 4 2-16 BUN (test code = 7462943301) 11 mg/dL 7-23 GLUCOSE (test code = 3221025958) 120 mg/dL 70-110 H CREATININE (test code = 2160-0) 0.71 mg/dL 0.50-1.04 CALCIUM (test code = 8205623735) 9.3 mg/dL 8.6-10.6 eGFR (test code = 62522-4) 107.0 mL/min/1.73m2 CKD-EPI eGFR (2020). Assuming creatinine has been stable day-to-day for at least three months, the eGFR indicates Category G1 (>= 90 mL/min/1.73 m2) Lab Interpretation (test code = 58784-7) Abnormal [facility] Metabolic Panel (NA, K, CL, CO2, Glucose, BUN, Creatinine, CA) - Code [id number] 03:03:47* Test Item Value Reference Range Interpretation Comme nts NA (test code = 4508200136) 135 mmol/L 135-145 K (test code = 9081465656) 4.3 mmol/L 3.5-5.0 CL (test code = 0394358137) 103 mmol/L 98-108 CO2 TOTAL (test code = 4595670333) 28 mmol/L 23-31 AGAP (test code = 7834846467) 4 2-16 BUN (test code = 5150471650) 11 mg/dL 7-23 GLUCOSE (test code = 9100962365) 120 mg/dL 70-110 H CREATININE (test code = 2160-0) 0.71 mg/dL 0.50-1.04 CALCIUM (test code = 0989965132) 9.3 mg/dL 8.6-10.6 eGFR (test code = 07245-1) 107.0 mL/min/1.73m2 CKD-EPI eGFR (2020). Assuming creatinine has been stable day-to-day for at least three months, the eGFR indicates Category G1 (>= 90 mL/min/1.73 m2) Lab Interpretation (test code = 73740-6) Abnormal [facility] Metabolic Panel (NA, K, CL, CO2, Glucose, BUN, Creatinine, CA) - Code [id number] 03:03:47* Test Item Value Reference Range Interpretation Comme nts NA (test code = 6492421069) 135 mmol/L 135-145 K (test code = 5328454546) 4.3 mmol/L 3.5-5.0 CL (test code = 1685048326) 103 mmol/L 98-108 CO2 TOTAL (test code = 2320978141) 28 mmol/L 23-31 AGAP (test code = 5141946816) 4 2-16 BUN (test code = 2785240538) 11 mg/dL 7-23 GLUCOSE (test code = 5602489095) 120 mg/dL 70-110 H CREATININE (test code = 2160-0) 0.71 mg/dL 0.50-1.04 CALCIUM (test code = 5919839169) 9.3 mg/dL 8.6-10.6 eGFR (test code = 70118-1) 107.0 mL/min/1.73m2 CKD-EPI eGFR (2020). Assuming creatinine has been stable day-to-day for at least three months, the eGFR indicates Category G1 (>= 90 mL/min/1.73 m2) Lab Interpretation (test code = 84557-1) Abnormal [facility] Metabolic Panel (NA, K, CL, CO2, Glucose, BUN, Creatinine, CA) - Code [id number] 03:03:47* Test Item Value Reference Range Interpretation Comme nts NA (test code = 2971307145) 135 mmol/L 135-145 K (test code = 9229001936) 4.3 mmol/L 3.5-5.0 CL (test code = 2054312613) 103 mmol/L 98-108 CO2 TOTAL (test code = 7470722510) 28 mmol/L 23-31 AGAP (test code = 4513616568) 4 2-16 BUN (test code = 8109323347) 11 mg/dL 7-23 GLUCOSE (test code = 4622410321) 120 mg/dL 70-110 H CREATININE (test code = 2160-0) 0.71 mg/dL 0.50-1.04 CALCIUM (test code = 1131141388) 9.3 mg/dL 8.6-10.6 eGFR (test code = 19173-8) 107.0 mL/min/1.73m2 CKD-EPI eGFR (2020). Assuming creatinine has been stable day-to-day for at least three months, the eGFR indicates Category G1 (>= 90 mL/min/1.73 m2) Lab Interpretation (test code = 76544-7) Abnormal [facility] Metabolic Panel (NA, K, CL, CO2, Glucose, BUN, Creatinine, CA) - Code [id number] 03:03:47* Test Item Value Reference Range Interpretation Comme nts NA (test code = 9541902468) 135 mmol/L 135-145 K (test code = 2538935946) 4.3 mmol/L 3.5-5.0 CL (test code = 7710466272) 103 mmol/L 98-108 CO2 TOTAL (test code = 4413244252) 28 mmol/L 23-31 AGAP (test code = 7438890979) 4 2-16 BUN (test code = 0391506156) 11 mg/dL 7-23 GLUCOSE (test code = 7257953077) 120 mg/dL 70-110 H CREATININE (test code = 2160-0) 0.71 mg/dL 0.50-1.04 CALCIUM (test code = 6387548094) 9.3 mg/dL 8.6-10.6 eGFR (test code = 50830-2) 107.0 mL/min/1.73m2 CKD-EPI eGFR (2020). Assuming creatinine has been stable day-to-day for at least three months, the eGFR indicates Category G1 (>= 90 mL/min/1.73 m2) Lab Interpretation (test code = 75478-3) Abnormal [facility] Metabolic Panel (NA, K, CL, CO2, Glucose, BUN, Creatinine, CA) - Code [id number] 03:03:47* Test Item Value Reference Range Interpretation Comme nts NA (test code = 9922857374) 135 mmol/L 135-145 K (test code = 3625551346) 4.3 mmol/L 3.5-5.0 CL (test code = 3848514046) 103 mmol/L 98-108 CO2 TOTAL (test code = 4104516688) 28 mmol/L 23-31 AGAP (test code = 8748223843) 4 2-16 BUN (test code = 7002467969) 11 mg/dL 7-23 GLUCOSE (test code = 7628801586) 120 mg/dL 70-110 H CREATININE (test code = 2160-0) 0.71 mg/dL 0.50-1.04 CALCIUM (test code = 6554191071) 9.3 mg/dL 8.6-10.6 eGFR (test code = 73381-2) 107.0 mL/min/1.73m2 CKD-EPI eGFR (2020). Assuming creatinine has been stable day-to-day for at least three months, the eGFR indicates Category G1 (>= 90 mL/min/1.73 m2) Lab Interpretation (test code = 36169-5) Abnormal [facility] Metabolic Panel (NA, K, CL, CO2, Glucose, BUN, Creatinine, CA) - Code [id number] 03:03:47* Test Item Value Reference Range Interpretation Comme nts NA (test code = 8029299107) 135 mmol/L 135-145 K (test code = 5874581924) 4.3 mmol/L 3.5-5.0 CL (test code = 5763180189) 103 mmol/L 98-108 CO2 TOTAL (test code = 8724095117) 28 mmol/L 23-31 AGAP (test code = 3912022531) 4 2-16 BUN (test code = 1543948387) 11 mg/dL 7-23 GLUCOSE (test code = 8664601154) 120 mg/dL 70-110 H CREATININE (test code = 2160-0) 0.71 mg/dL 0.50-1.04 CALCIUM (test code = 0657068474) 9.3 mg/dL 8.6-10.6 eGFR (test code = 11725-3) 107.0 mL/min/1.73m2 CKD-EPI eGFR (2020). Assuming creatinine has been stable day-to-day for at least three months, the eGFR indicates Category G1 (>= 90 mL/min/1.73 m2) Lab Interpretation (test code = 01708-6) Abnormal [facility] Metabolic Panel (NA, K, CL, CO2, Glucose, BUN, Creatinine, CA) - Code [id number] 03:03:47* Test Item Value Reference Range Interpretation Comme nts NA (test code = 0511048597) 135 mmol/L 135-145 K (test code = 2493673601) 4.3 mmol/L 3.5-5.0 CL (test code = 6155938005) 103 mmol/L 98-108 CO2 TOTAL (test code = 5388767400) 28 mmol/L 23-31 AGAP (test code = 6273811698) 4 2-16 BUN (test code = 5380339124) 11 mg/dL 7-23 GLUCOSE (test code = 7359364218) 120 mg/dL 70-110 H CREATININE (test code = 2160-0) 0.71 mg/dL 0.50-1.04 CALCIUM (test code = 7060911614) 9.3 mg/dL 8.6-10.6 eGFR (test code = 26224-7) 107.0 mL/min/1.73m2 CKD-EPI eGFR (2020). Assuming creatinine has been stable day-to-day for at least three months, the eGFR indicates Category G1 (>= 90 mL/min/1.73 m2) Lab Interpretation (test code = 30640-8) Abnormal [facility] Metabolic Panel (NA, K, CL, CO2, Glucose, BUN, Creatinine, CA) - Code [id number] 03:03:47* Test Item Value Reference Range Interpretation Comme nts NA (test code = 0789609769) 135 mmol/L 135-145 K (test code = 9167654592) 4.3 mmol/L 3.5-5.0 CL (test code = 0530006019) 103 mmol/L 98-108 CO2 TOTAL (test code = 0799617625) 28 mmol/L 23-31 AGAP (test code = 3196759267) 4 2-16 BUN (test code = 7065497154) 11 mg/dL 7-23 GLUCOSE (test code = 6777236849) 120 mg/dL 70-110 H CREATININE (test code = 2160-0) 0.71 mg/dL 0.50-1.04 CALCIUM (test code = 7124019859) 9.3 mg/dL 8.6-10.6 eGFR (test code = 59181-1) 107.0 mL/min/1.73m2 CKD-EPI eGFR (2020). Assuming creatinine has been stable day-to-day for at least three months, the eGFR indicates Category G1 (>= 90 mL/min/1.73 m2) Lab Interpretation (test code = 46481-7) [facility] - Code [id number] 03:00:48* Test Item Value Reference Range Interpretation Comme nts PROTIME PATIENT (test code = 5964-2) 10.4 10.1-12.6 INR (test code = 6301-6) 0.9 Normal INR <1.1; Warfarin Therapeutic range 2.0 to 3.0 or 2.5 to 3.5, depending upon the indications. Lab Interpretation (test code = 10558-4) Normal [facility] - Code [id number] 03:00:48* Test Item Value Reference Range Interpretation Comme nts PROTIME PATIENT (test code = 5964-2) 10.4 10.1-12.6 INR (test code = 6301-6) 0.9 Normal INR <1.1; Warfarin Therapeutic range 2.0 to 3.0 or 2.5 to 3.5, depending upon the indications. Lab Interpretation (test code = 98425-9) Normal [facility] - Code [id number] 03:00:48* Test Item Value Reference Range Interpretation Comme nts PROTIME PATIENT (test code = 5964-2) 10.4 10.1-12.6 INR (test code = 6301-6) 0.9 Normal INR <1.1; Warfarin Therapeutic range 2.0 to 3.0 or 2.5 to 3.5, depending upon the indications. Lab Interpretation (test code = 85835-8) Normal [facility] - Code [id number] 03:00:48* Test Item Value Reference Range Interpretation Comme nts PROTIME PATIENT (test code = 5964-2) 10.4 10.1-12.6 INR (test code = 6301-6) 0.9 Normal INR <1.1; Warfarin Therapeutic range 2.0 to 3.0 or 2.5 to 3.5, depending upon the indications. Lab Interpretation (test code = 89439-9) Normal [facility] - Code [id number] 03:00:48* Test Item Value Reference Range Interpretation Comme nts PROTIME PATIENT (test code = 5964-2) 10.4 10.1-12.6 INR (test code = 6301-6) 0.9 Normal INR <1.1; Warfarin Therapeutic range 2.0 to 3.0 or 2.5 to 3.5, depending upon the indications. Lab Interpretation (test code = 69341-4) Normal [facility] - Code [id number] 03:00:48* Test Item Value Reference Range Interpretation Comme nts PROTIME PATIENT (test code = 5964-2) 10.4 10.1-12.6 INR (test code = 6301-6) 0.9 Normal INR <1.1; Warfarin Therapeutic range 2.0 to 3.0 or 2.5 to 3.5, depending upon the indications. Lab Interpretation (test code = 08063-7) Normal [facility] - Code [id number] 03:00:48* Test Item Value Reference Range Interpretation Comme nts PROTIME PATIENT (test code = 5964-2) 10.4 10.1-12.6 INR (test code = 6301-6) 0.9 Normal INR <1.1; Warfarin Therapeutic range 2.0 to 3.0 or 2.5 to 3.5, depending upon the indications. Lab Interpretation (test code = 13351-0) Normal [facility] - Code Egdvfh2403-56-36 03:00:48* Test Item Value Reference Range Interpretation Comme nts PROTIME PATIENT (test code = 5964-2) 10.4 10.1-12.6 INR (test code = 6301-6) 0.9 Normal INR <1.1; Warfarin Therapeutic range 2.0 to 3.0 or 2.5 to 3.5, depending upon the indications. Lab Interpretation (test code = 19261-5) Normal [facility] - Code Narydz4492-19-65 03:00:48* Test Item Value Reference Range Interpretation Comme nts PROTIME PATIENT (test code = 5964-2) 10.4 10.1-12.6 INR (test code = 6301-6) 0.9 Normal INR <1.1; Warfarin Therapeutic range 2.0 to 3.0 or 2.5 to 3.5, depending upon the indications. Lab Interpretation (test code = 33144-7) [facility] [id number] 03:00:47* Test Item Value Reference Range Interpretation Comme nts APTT Patient (test code = 3173-2) 36 Lab Interpretation (test cod e = 13020-8) [facility] Jvrwac3186-68-84 03:00:47* Test Item Value Reference Range Interpretation Comme nts APTT Patient (test code = 3173-2) 36 Lab Interpretation (test cod e = 10238-5) [facility] Fnwuzi5622-55-74 03:00:47* Test Item Value Reference Range Interpretation Comme nts APTT Patient (test code = 3173-2) 36 Lab Interpretation (test cod e = 40654-9) [facility] Jqupqh8942-92-93 03:00:47* Test Item Value Reference Range Interpretation Comme nts APTT Patient (test code = 3173-2) -36 Lab Interpretation (test cod e = 01393-6) [facility] Kjrlqw5998-26-30 03:00:47* Test Item Value Reference Range Interpretation Comme nts APTT Patient (test code = 3173-2) -36 Lab Interpretation (test cod e = 01877-0) Normal [facility] - Code Sagfyd8211-45-25 03:00:47* Test Item Value Reference Range Interpretation Comme nts APTT Patient (test code = 3173-2) -36 Lab Interpretation (test cod e = 65001-8) Normal [facility] - Code Arwlxk5003-36-76 03:00:47* Test Item Value Reference Range Interpretation Comme nts APTT Patient (test code = 3173-2) 29 -36 Lab Interpretation (test cod e = 71620-0) [facility] Jhcfob4055-88-92 03:00:47* Test Item Value Reference Range Interpretation Comme nts APTT Patient (test code = 3173-2) 29 -36 Lab Interpretation (test cod e = 22270-7) Normal [facility] - Code Vzawjz6245-05-55 03:00:47* Test Item Value Reference Range Interpretation Comme nts APTT Patient (test code = 3173-2) 29 -36 Lab Interpretation (test cod e = 88576-6) Normal [facility] without Diff - Code Ooyvlz6889-48-83 02:52:09* Test Item Value Reference Range Interpretation [...] 367 166-358 H MPV (test code = 59664-6) 11.3 fL 9.5-12.9 RDW-CV (test code = 788-0) 15.4 % 12.0-15.5 RDW-SD (test code = 52461-4) 43.8 fL 39.0-49.9 NRBC x10^3 (test code = 4293200537) See_Comment [Automated messa ge] The system which generated this result transmitted reference range: 10*3/?L. The reference range was not used to interpret this result as normal/abnormal. NRBC/100 WBC (test code = 0577850765) 0.0 0.0-10.0 IPF % (test code = 2882113119) Lab Interpretation (test code = 25133-9) Abnormal [facility] without Diff - Code Ajqyap0429-77-78 02:52:09* Test Item Value Reference Range Interpretation [...] 367 166-358 H MPV (test code = 01367-7) 11.3 fL 9.5-12.9 RDW-CV (test code = 788-0) 15.4 % 12.0-15.5 RDW-SD (test code = 33799-0) 43.8 fL 39.0-49.9 NRBC x10^3 (test code = 3568546521) See_Comment [Automated messa ge] The system which generated this result transmitted reference range: 10*3/?L. The reference range was not used to interpret this result as normal/abnormal. NRBC/100 WBC (test code = 0684388351) 0.0 0.0-10.0 IPF % (test code = 1677176212) Lab Interpretation (test code = 71630-7) Abnormal [facility] without Diff - Code Baubrb8470-19-75 02:52:09* Test Item Value Reference Range Interpretation [...] 367 166-358 H MPV (test code = 26957-2) 11.3 fL 9.5-12.9 RDW-CV (test code = 788-0) 15.4 % 12.0-15.5 RDW-SD (test code = 49928-1) 43.8 fL 39.0-49.9 NRBC x10^3 (test code = 1233334913) See_Comment [Automated messa ge] The system which generated this result transmitted reference range: 10*3/?L. The reference range was not used to interpret this result as normal/abnormal. NRBC/100 WBC (test code = 7914458927) 0.0 0.0-10.0 IPF % (test code = 1597973798) Lab Interpretation (test code = 76912-5) Abnormal [facility] without Diff - Code Xrooux6888-24-17 02:52:09* Test Item Value Reference Range Interpretation [...] 367 166-358 H MPV (test code = 19650-7) 11.3 fL 9.5-12.9 RDW-CV (test code = 788-0) 15.4 % 12.0-15.5 RDW-SD (test code = 20714-1) 43.8 fL 39.0-49.9 NRBC x10^3 (test code = 4541934791) See_Comment [Automated Paperspinea ge] The system which generated this result transmitted reference range: 10*3/?L. The reference range was not used to interpret this result as normal/abnormal. NRBC/100 WBC (test code = 4019433234) 0.0 0.0-10.0 IPF % (test code = 4932647721) Lab Interpretation (test code = 85089-4) Abnormal [facility] without Diff - Code Vltvtu3632-99-73 02:52:09* Test Item Value Reference Range Interpretation [...] 367 166-358 H MPV (test code = 66364-8) 11.3 fL 9.5-12.9 RDW-CV (test code = 788-0) 15.4 % 12.0-15.5 RDW-SD (test code = 07834-1) 43.8 fL 39.0-49.9 NRBC x10^3 (test code = 0231539625) See_Comment [Automated Paperspinea ge] The system which generated this result transmitted reference range: 10*3/?L. The reference range was not used to interpret this result as normal/abnormal. NRBC/100 WBC (test code = 0249004053) 0.0 0.0-10.0 IPF % (test code = 8507629582) Lab Interpretation (test code = 94849-7) Abnormal [facility] without Diff - Code Frdoci0671-90-14 02:52:09* Test Item Value Reference Range Interpretation [...] 367 166-358 H MPV (test code = 24403-8) 11.3 fL 9.5-12.9 RDW-CV (test code = 788-0) 15.4 % 12.0-15.5 RDW-SD (test code = 45977-2) 43.8 fL 39.0-49.9 NRBC x10^3 (test code = 2908401705) See_Comment [Automated messa ge] The system which generated this result transmitted reference range: 10*3/?L. The reference range was not used to interpret this result as normal/abnormal. NRBC/100 WBC (test code = 0104609392) 0.0 0.0-10.0 IPF % (test code = [id number]) Lab Interpretation (test code = 68570-5) Abnormal [facility] without Diff - Code [id number] 02:52:09* Test Item Value Reference Range Interpretation [...] 367 166-358 H MPV (test code = 58650-9) 11.3 fL 9.5-12.9 RDW-CV (test code = 788-0) 15.4 % 12.0-15.5 RDW-SD (test code = 67514-1) 43.8 fL 39.0-49.9 NRBC x10^3 (test code = [id number]) See_Comment [Automated messa ge] The system which generated this result transmitted reference range: 10*3/?L. The reference range was not used to interpret this result as normal/abnormal. NRBC/100 WBC (test code = 2305042982) 0.0 0.0-10.0 IPF % (test code = 5541105095) Lab Interpretation (test code = 78220-0) Abnormal [facility] without Diff - Code Hwksrm1265-15-60 02:52:09* Test Item Value Reference Range Interpretation [...] 367 166-358 H MPV (test code = 96483-1) 11.3 fL 9.5-12.9 RDW-CV (test code = 788-0) 15.4 % 12.0-15.5 RDW-SD (test code = 42400-2) 43.8 fL 39.0-49.9 NRBC x10^3 (test code = 3393777399) See_Comment [Automated [employer]] The system which generated this result transmitted reference range: 10*3/?L. The reference range was not used to interpret this result as normal/abnormal. NRBC/100 WBC (test code = 6223575966) 0.0 0.0-10.0 IPF % (test code = 7202699043) Lab Interpretation (test code = 13551-3) Abnormal [facility] without Diff - Code Qpqrsa6342-81-92 02:52:09* Test Item Value Reference Range Interpretation [...] 367 166-358 H MPV (test code = 21648-8) 11.3 fL 9.5-12.9 RDW-CV (test code = 788-0) 15.4 % 12.0-15.5 RDW-SD (test code = 08373-2) 43.8 fL 39.0-49.9 NRBC x10^3 (test code = 8872930708) See_Comment [Automated [employer]] The system which generated this result transmitted reference range: 10*3/?L. The reference range was not used to interpret this result as normal/abnormal. NRBC/100 WBC (test code = 6974107493) 0.0 0.0-10.0 IPF % (test code = 7300048665) Lab Interpretation (test code = 48894-1) [facility]Age >30 Days[facility] - Code Stroke 2023-06-08 02:39:00* Test Item Value Reference Range Interpretation Comme nts POCT Glu (age>30days) (test code = 3342) 124 mg/dL 70-110 A Lab Interpretation (test cod e = 22366-2) [facility]normal [facility] Glucose (Age >30 Days) - Code Stroke 2023-06-08 02:39:00* Test Item Value Reference Range Interpretation Comme nts POCT Glu (age>30days) (test code = 3342) 124 mg/dL 70-110 A Lab Interpretation (test cod e = 33347-2) Abnormal [facility] Glucose (Age >30 Days) - Code Stroke 2023-06-08 02:39:00* Test Item Value Reference Range Interpretation Comme nts POCT Glu (age>30days) (test code = 3342) 124 mg/dL 70-110 A Lab Interpretation (test cod e = 31797-9) Abnormal [facility]PO[facility] Glucose (Age >30 Days) - Code Stroke 2023-06-08 02:39:00* Test Item Value Reference Range Interpretation Comme nts POCT Glu (age>30days) (test code = 3342) 124 mg/dL 70-110 A Lab Interpretation (test cod e = 29781-5) Abnormal [facility]PO[facility] Glucose (Age >30 Days) - Code Stroke 2023-06-08 02:39:00* Test Item Value Reference Range Interpretation Comme nts POCT Glu (age>30days) (test code = 3342) 124 mg/dL 70-110 A Lab Interpretation (test cod e = 84038-6) Abnormal [facility] Glucose (Age >30 Days) - Code Stroke 2023-06-08 02:39:00* Test Item Value Reference Range Interpretation Comme nts POCT Glu (age>30days) (test code = 3342) 124 mg/dL 70-110 A Lab Interpretation (test cod e = 15644-3) Abnormal [facility] Glucose (Age >30 Days) - Code Stroke 2023-06-08 02:39:00* Test Item Value Reference Range Interpretation Comme nts POCT Glu (age>30days) (test code = 3342) 124 mg/dL 70-110 A Lab Interpretation (test cod e = 85908-7) Abnormal [facility] Glucose (Age >30 Days) - Code Stroke 2023-06-08 02:39:00* Test Item Value Reference Range Interpretation Comme nts POCT Glu (age>30days) (test code = 3342) 124 mg/dL 70-110 A Lab Interpretation (test cod e = 31665-9) Abnormal [facility] Glucose (Age >30 Days) - Code Stroke 2023-06-08 02:39:00* Test Item Value Reference Range Interpretation Comme nts POCT Glu (age>30days) (test code = 3342) 124 mg/dL 70-110 A Lab Interpretation (test cod e = 01542-8) [facility] Uzmlp7568-29-43 19:59:01* Test Item Value Reference Range Interpretation Comme nts FERRITIN (test code = 6840410303) 22.4 ng/mL 6.0-137.0 ZAINAB (test code = ZAINAB) Biotin has been reported to cause a negative bias, interpret results relative to patient's use of biotin. Lab Interpretation (test code = 05968-3) [facility] Pbqkc6237-09-23 19:59:01* Test Item Value Reference Range Interpretation Comme nts FERRITIN (test code = 3178041184) 22.4 ng/mL 6.0-137.0 ZAINAB (test code = ZAINAB) Biotin has been reported to cause a negative bias, interpret results relative to patient's use of biotin. Lab Interpretation (test code = 75109-4) [facility] Uamiu8249-52-79 19:59:01* Test Item Value Reference Range Interpretation Comme nts FERRITIN (test code = 7852654547) 22.4 ng/mL 6.0-137.0 ZAINAB (test code = ZAINAB) Biotin has been reported to cause a negative bias, interpret results relative to patient's use of biotin. Lab Interpretation (test code = 60928-9) [facility] Iqozp1235-61-04 19:59:01* Test Item Value Reference Range Interpretation Comme nts FERRITIN (test code = 9664826355) 22.4 ng/mL 6.0-137.0 ZAINAB (test code = ZAINAB) Biotin has been reported to cause a negative bias, interpret results relative to patient's use of biotin. Lab Interpretation (test code = 94683-4) Normal [facility] Jbxwu4836-92-71 19:59:01* Test Item Value Reference Range Interpretation Comme nts FERRITIN (test code = 5966091624) 22.4 ng/mL 6.0-137.0 ZAINAB (test code = ZAINAB) Biotin has been reported to cause a negative bias, interpret results relative to patient's use of biotin. Lab Interpretation (test code = 84644-9) Normal [facility] Mqxmm5371-95-89 19:59:01* Test Item Value Reference Range Interpretation Comme nts FERRITIN (test code = 9720854430) 22.4 ng/mL 6.0-137.0 ZAINAB (test code = ZAINAB) Biotin has been reported to cause a negative bias, interpret results relative to patient's use of biotin. Lab Interpretation (test code = 24552-5) Normal [facility] Ccajd1511-29-57 19:30:52* Test Item Value Reference Range Interpretation Comme nts IRON (test code = 9288644255) 54 ug/dL 50-160 TIBC (test code = 4022681125) 434 ug/dL 250-410 H % FE SAT (test code = 8056757814) 12 % 20-50 L Lab Interpretation (test cod e = 57288-7) Abnormal [facility] Xsvdh6511-25-91 19:30:52* Test Item Value Reference Range Interpretation Comme nts IRON (test code = 5901645464) 54 ug/dL 50-160 TIBC (test code = 6275402154) 434 ug/dL 250-410 H % FE SAT (test code = 5638805592) 12 % 20-50 L Lab Interpretation (test cod e = 16941-2) Abnormal [facility] Iuqsc0755-17-42 19:30:52* Test Item Value Reference Range Interpretation Comme nts IRON (test code = 8147819127) 54 ug/dL 50-160 TIBC (test code = 4884297172) 434 ug/dL 250-410 H % FE SAT (test code = 8418048570) 12 % 20-50 L Lab Interpretation (test cod e = 93575-7) Abnormal [facility] Ixybc4084-43-68 19:30:52* Test Item Value Reference Range Interpretation Comme nts IRON (test code = 0660004484) 54 ug/dL 50-160 TIBC (test code = 3693299960) 434 ug/dL 250-410 H % FE SAT (test code = 4567177409) 12 % 20-50 L Lab Interpretation (test cod e = 59705-9) Abnormal [facility] Qnprc9281-72-13 19:30:52* Test Item Value Reference Range Interpretation Comme nts IRON (test code = 6318187626) 54 ug/dL 50-160 TIBC (test code = 8982872538) 434 ug/dL 250-410 H % FE SAT (test code = 9103961038) 12 % 20-50 L Lab Interpretation (test cod e = 48057-6) Abnormal [facility] Nappg5620-15-78 19:30:52* Test Item Value Reference Range Interpretation Comme nts IRON (test code = 6371395624) 54 ug/dL 50-160 TIBC (test code = 4441375340) 434 ug/dL 250-410 H % FE SAT (test code = 4031217567) 12 % 20-50 L Lab Interpretation (test cod e = 27368-6) Abnormal [facility]2023-12-11 20:01:05* Test Item Value Reference Range Interpretation Comme nts Smiley (test code = 9612367776) 0.5 mmol/L 0.6-1.2 L ZAINAB (test code = ZAINAB) Toxic Range: ? Greater than 1.2 mmol/L Lab Interpretation (test code = 56354-9) Abnormal [facility]2023-12-11 20:01:05* Test Item Value Reference Range Interpretation Comme nts Smiley (test code = 1119081579) 0.5 mmol/L 0.6-1.2 L ZAINAB (test code = ZAINAB) Toxic Range: ? Greater than 1.2 mmol/L Lab Interpretation (test code = 30943-3) [facility] 20:01:05* Test Item Value Reference Range Interpretation Comme nts Smiley (test code = 6549814500) 0.5 mmol/L 0.6-1.2 L ZAINAB (test code = ZAINAB) Toxic Range: ? Greater than 1.2 mmol/L Lab Interpretation (test code = 30542-5) [facility] KTRL4499-15-25 19:23:05* Test Item Value Reference Range Interpretation Comme nts Case Report (test code = 1763424935) Surgical Pathology ?Case: [id number] ? Authorizing Provider: ?Dominic Keita MD ? [...] HPylori ? Final Diagnosis (test code = 6884183740) [id number] FuZzEwMzNcZnRuYmpcdWMx SRuswjLvPWagzNrdEQW0LF GxIV3grZxzrDd5aSwhJHKa veQ4lDMvZIzte8vjAES1c3 lqqarfCGDxBKlxIo9bhPYa jOzwEyCdRMNeERg9gV24SU JtkP1ceDVmYMf2MERroYOs toXtExIoNMPdlBGamOT0TV GsHO7casspPEswKUqbNVUd xnA3DFHuyEErU9AqYSLiVF 6rgadrWDF5COrmSKCnOOJ0 ZiEbWSBom4Orihd5LxMnpI FyZFxwbGFpblxmczIwXHBh zyVPKzSEMF5WGIXADXGUL9 rRFYWLRJ7LQOKIAtvfmUJb KINvXUWrHJXQEL5PBMUjE3 tWGvLuHY5SEYHjTWOanVLw VQTpvcYMBaVKJA1RYZ4RAI wgQklPUFNZOlxwYXIgICAg LLYyGSaKR4GKYBVrWTLZJ4 JMIEhVMImmHz7xFIVGOH0Y M6iFG7SPQCBPZD9XVDqhWJ NrPVDyGPKlRA0IKYcnVDVL NW9ZQMOIOLKPLEgOJPTPPK QTNLkZEFFCA4EHYZuDHOEi lfdxELQaLk1bL0VGSZFLXI wgQklPUFNZOlxwYXIgICAg QKVnPXNEZ1CZVlHEYH6ID2 9XGMMGBJBHDE0WTFGOTXaD JU4MMRJCWGTAYQTKA9VkjK FyICAgICAgLSBOTyBFVklE JY7MFVPLGsKTPXiZRQChLI lTRUFTRVxwYXIgICAgICAt AI1PDTfkFQIPSO8VSDBMNr dBTklTTVMgSURFTlRJRklF OKDPBLQNSB0MJm5FVQJIVs xwYXJccGFyfXtccnRmMVxz f3YzJ2DcCcQlIFrbyhLgLG WsZnpaczfvVFRkUVN8gyIw EDLdVBecTLDbAThyPc8frP YshWhfPqKlRGEaf6umdyRD CVubAoUkX881VIVdTLebg7 alo9AyLGBjqAHts1S7DVVI xefvuTf2f6kpTmYeXrD8oR SqVOclL7skafVygRGsV4Hx bWEnpVa6xPnbS60sg5B3By cuJ7bdPBZnUMBxA2QgDB6k NCXrVpv4YNB9EBY0YZOjWH KfE6ZhPY9eYMWqoCDyOMh6 n2hgtIfvPSRrTFN9h4krQL tuavU8NC2cks7zwQv5q6sz czEgRGVmYXVsdCBQYXJhZ3 WtaUbfTl4jrOm1rPoiCzei YDR4Lat1KB8gwc38cwm8aH teKOPfsxrsVnI0IEanHWWw hjufTEb5WGpcWPNfwXD4ZE FaeGQlM9OzUBTmJJ9uufb0 QPI6MLkfUJWtEvJ5HBLzlC PtKHOtjJhpETcwl161JNM5 EqPeAU2vS6Top0J8oL5prC UkNUSljDDtHnVoTOQkwq6g zDWaUJyye7CkCLL8zeA6xV MaaUVdVPZvKX72Tancm4Hw ZfouRAQ2ZFXlqtAgj7Wzq4 grFpEzcmBmB7waN9GkRFTn HJUdWPJpIwVaacFkw7Lix4 YjtZPmmOv0m8lzMRKdUJQa xUfjs0clWZD8GMEwB1C5cE Enb2mjOKfmYDSmtBH0veR3 HOHdiLKwO2UqaU0xVYEhBL 1gbyt9s2ebKPO6ZDieBOGp WxD8ddQ7QNKutCRxZRBizN dpEHgpr352IBV2QlDyYVCx w4QrH8XugIlbK44ndTayK4 6oBSWfrCskpB2fmBrurS5q ZjBcZnMyNFxxbFxwbGFpbl xmMVxmczIwXGxhbmcxMDMz KCobN8zgHrIoSUXstFxlAT zom2ToSLAjPPDbBqqfnoKe XHBhciBJIGhhdmUgcGVyc2 9uYWxseSByZXZpZXdlZCBh sVjxc3QsA3msNJ1hL4NkbH JeqwKjldNuYFbeUSBph0h6 dDWxmHikr8GqwRSdFS47mx EbMBKeTPU0QPJon5gnLH41 kipuAiMjkT85tfAcrwSeUF Acj6koC7jonBVde3Frz7Ve goMmILhyg9SbSA3luRRaov ukmJR0LJXokKNhbiUxqqB3 fJfkMNOmmU3snF4elFxnyQ 9mSzLuEtJzDOttFV5wFPYm T4agbQSaGKQiEVFgO7lkYs TbvW6tiYooTvnqzuQ3DWKl cn19 Clinical Information (test code = 6899684429) Shivani Schuler is a 47 year old female with IDA1. Gastric polyp x 6 r/o adenoma2.Duodenal Bx, r/o Celiac disease 3. Gastric Bx r/o HPylori Gross Description (test code = 0826760243) r4grzFCqKFXquHSIOIX6ND LwMC4ziLwrkNo9iZfcQJHl boG4hGSoBLxyh6hyNPO3k0 seakOOVenjPHDoUC0gMHuj ZVHaRJ2jTgJvHGUrFaYmJJ BhcGVydzEyMjQwXHBhcGVy rLS5EFLaIQ1phbnvKYryJH toIYBmsiM6UFChsGFaG9Sd RMBiNC4phoyjAYK1OJGTJr bxDi8xgINnhUdmKpHdGdNb YXJzZXQwXGZuaWwgQXJpYW u8rL6ZOzrdXLN9FBHWKxld LyjneJwqh2RejAXmTAJjSO xcaWQgNTEwMDAgXFxkYiBP UnLzRbI6Bui7XXU4PaX4QJ l8LCOVTEQnQsybSHU7HuS7 FTz9HGCsIK8jWPupiBYiJJ uqEbcqIEgqC901AOtySIBf X8IyW5ZuFUpkPxUfFYkrJD XmPGXqJNchONFtX6TDKTWr ZQT4EvAgXGKuPLq7AWyoJ8 BDETYgDKNiLuQ9URRiNnS3 JGk1LTAUEo0lCEnuQuQsQG e6YZL9YLr6IvUaECNlCmBb PONrDTPwLTqadOBaVO5asW xcCUFlDK8JOTZiFCjoFUAo OeHnV1QVZ7dGEB4mYFqraW JjaFxmczIyXHBhciANClxw NGXqFC4AZQQbHXcoETc2io CgOPGlHfRaNTLsK93fp5IW y3JyFV0HKAl3fqHcivenkX 8mXUStisNkWHjOqATboF3x rqXTHYcmLRZoL1YhnnAyVL lnZXIowc4ilBykWTrmDrYp bGVkIHdpdGggdGhlIHBhdG hqpeNhQ8H3joWtKN2aOJDL LAAqsS1tOYQaTYHet7VnuK CfoBooO3RseXTsUgLfl2k9 fNF4UEDqmfBoGULmbEVhRI Zbab4nMVytRmOnC7Q9GAHp UNAin41xrEA6gcHpSzJsxI a7uVKhKYN6BI5ppQorymYc s8n5eO0fPNDus1U6BPCry5 Z8RQLmgdIjjHRnsSPfYEZc SI9yxdBlZL50NVYvVIlfCW lkSJM5RPW3DKWbgUMmn4rf sjjgRh4mZHwwGA3bCNjrHL 15JPIsFUflPDEpQ9YcS6T1 YXngKODxNLYmqBKssB6xte KpxfAwjOp3LQNfKFZ9sGJd lLhlXYVxYlzcuSL1PRLzGg AfzhZid3LmmTd6dLFkWJdp SWSkwQ5kiR9aXTJdLQOqdj XJVhjwTUDvZZzbh7TqWJqi cGljWHNhMzAgDQpcZXBpY0 7rk5JOh8Zub5yvlYrzr1Vs nWJmOT7qeENhJM0Xw8lmOF SieJEnHRY7IMvdc3tjLXto DLQ6URKqAoKaZNWkOD7UPb PrUHnpRKa5OFxvUZi8DGp0 OA3PWiOsVALoAjh8JsD9Vb KyOQo3SVoyRF0AEPR5ZYOv DULkNZanRIK1NLOaLTg2HU IgXFxzcyAzIFxcZmwgXFxu Y19zxMZbLRdoPrPeXEuyfH wvZHLyZVC9YF1AHIXbMpMm P5UZC0jCTY9oIrujqaMsCQ WdsuYGGlbgFMEjYQ4QEBSv FQjxOCa8giEdZJRaHnUrIX ZpR62as8OFt8PhKG0YFUf1 mzKlfkongZ3mPNNfitCyb2 IzMFxlcGljWHNiMzAgDQpT yGWssR4dxcQCWWymCRAtZ3 GpacQtDZoxSRSito2jaBxs IGxhYmVsbGVkIHdpdGggdG qwKIFpxKrmcqNhI7W8hdEz LX9fVGIEOHKjdT7pBOZwSC SwPYYkVBKocB1fYII1i8Xh lqFsLTDZPCFvuIdhUX75tW BjZWxpYWMgZGlzZWFzZSBh lnTamuFpl85rurUxo5RkAL 3dvVjrCRkRALktHiCiIP4j PZOteeArf7FgUZ2bNPOdbK BnHHOsymxgjBOwACk0dNQw RYAaGjZodLepu5JtTBRoMO jvTC56kkIhQU6bMRteIL4l EPbfMB7rKEXbFWZhNMOkRq AfvFWkZtYytATpLiEmE96a MfTLgNUya3TgN2hmEN1bnN AdBgsjzCPiTKBqfYfbo2Bw uBXeYONzj7GtrSZdZKvjBY 4tOLW8Po2nnELzSYPckgA4 p2IoACzhAQYnFoshTDRmPK iwc7YxKQXtrMVLy6WzAL9N XHBhciANClxzYTMwXGVwaW LIk0PrADFHWtrxxAhnTaKi jIOcFjD3QBYilLSfTJE9AA 6gwYwvTNUlDXz7NVbmMITo H1UvQ4BtNJwkNwZsBJkeOR NvLXKmJOwsQPNhY8DANTIn SRS8WaJaTCGgERa9LDxmU5 LLNGGsXEPpUlM4PDF0ZdA0 QYe3OCLSKa7wMGosBtUaMD WqObS2KZb2WiRaNDArMyFl MANpMGCtVYfzrXWlCV2sdF ypAXNxXKDgJKW7ISCwvLHF q9RhSTWzGDgaOtSkFJIFQC URXP5PBePDVZOwOiTrzGVw KJ3ZFNFaktUsFDlzhLkyeY 6xkRKlT1vpGnZxAyncgZqm TmVzdERvYzEgDQpcbHRycG FyXGxpbjBccmluMFxzYjMw DTUotEJUf2JwCVQJJwIgHJ NpbWVuIEMgaXMgcmVjZWl2 XPQqrI9rWf8tjFMvdE2ooF NsKQerOYLkx7z4yQO3aRIy gUK6gRVdlKnaVpXmYF4jkI PeTKGDDT91mEZwiiXaZCWe aB6fIYYbZDClZBX1qhebRY XALFS2iLBle9F9JQzcPVI8 rE4apUxbJkExF8A0GGAzBA Qkj79bvDO4kwQzLmEoBICl ab5luX5mTIgomeTuxIoqyk Htf7G1RIQww5N7NGDmuwOj nHLijFUbGDGpOdU2BDQxDm E5HIGqMEIfeUAjRHTfIQ4g VGhlIHNwZWNpbWVuIGlzIG VquUJkysUvPCFdlk30Y2nx NWLmnR6uy4mwYmLrTWYiPY AyjGVztDI4RQUphX6jtT18 tyDjysQXMM0qqRQnWV4UTA NiMFxlcGljWHNiMCANClxw TIHoXJoxh1DvXWrctQvsYO LzPuJcTZxHoZjqIGBXB0lx aARcZApoFRTVAGsJB6STDS 0LFUEjjWRVAUD4AZ2dALjr ZCCgE5OqA8NhyvH0v8enjN inr6QqrPPuXA3caYImXM0K XHBhcmQgDQp9 Disclaimer (test code = 5284576647) u5jpwHRyACJdl9meKDHmiX FuZzEwMzNcZnRuYmpcdWMx KPwjblPyIAlti4GkP1IlVn AwMFxhbnNpXGRlZmxhbmcx ODFjSLK0boUnOVYqVFniEC ToAFgtNb6mpLUybJysEpSo ISFan0hdatVUXKoyCbPkB9 96TMIdUMspj1uxg2WsFQEy sBWwv2J8JCWLybybkVq0mM zuS76st5J7JbikR6nbFPJq PQScL1CsYB5kWGMlCrs8LO I0GBN6KMSqIHIhW5XfOU0x JDJpnBIzEBm8y4thzZpcSW ZjALA5o7sxXYpfcfCkHH9x mn9owRf9j8cbuxFwKCWyFR ThvZXDMTVwJ5LtkCmzMr3n lDq8iHygLspgXEI2Gpq8YF 7ont83afv4sHtrJWFftpma LnS9SZezFSRnwresLLl1BT oxJSMtbBC3OLRxaBXpZ8Rj GNGnLI9yyfu5NXC8FEdnTW IlItV4GSFjmZDmWIZmzPnj KCdwy631GYI3ZxJmVS4hG7 Slp6E1sG9fgEXjEBDzaRTh InBzSHUoin2rhJCsJJpjv7 HbQBX9fvG6iSQazJUlGUQf YL36Rtlyr7LvZmqht1KvJ3 8ozZI0KPxek9nlFF8eAbU8 gvPqHCsjn4fbmZ7yFrL0WK ldWR7qJB7tOILcbY2eavjt XHBnYnJkcmhlYWRccGdicm CrJz0grDwcOKR6UVuyF8aj lU2tLeQ3YJdfX1ojvO4jAQ e5WFpijNJ9RZFntF5eCL7p jimqr2ztDCdhLLtdXRLpfp N7jrP9HQQzzIWmZ1DsbD4c FWUoTD2vxljex7heUNR9GK pePWYzFQV0VdZePQKcj2Kz fgl2VlSaz9TzmJAfQSzbY0 3os006KWGmriVjD2yzgGFz jeeurUGibymfDEahasO8LB NlhwNrl8XxWYWoYSE2TCcp QWkwiSQoDFExuRkbt5isP6 RscGFyXHBsYWluXGYxXGZz MjBcbGFuZzEwMzNcaGljaF cxMBhrHfHdYKRcIMsuM5zo RkWkM6XvKFToRiSheKSlY1 ggVGhpcyByZXBvcnQgbWF5 AGtyJ5d2GZQrjvVyuIs9rt FqEhVnMWDmMOQ9HWjqvWCz XZRln4AkqycofWKqRb1wpB ElPRRlhS0hSMQaWPJxGMnr FT8maEc8QPZUcHQgzBWtDx TQYHSfJP19jtHyEMDBzcbk a2Y1DYfeXBSkd4JijJDbX0 pxu5XvDHBfv85yUC8dv6Q5 o6roQKN2GV6py4GjODZogS OdbJLsZHWcz8Wrmfggq3Sz ATTrfvTaf8KxWFPaqwVhxM ZyGCIcpbZoyq5nyiRgMFWr HLIaY9BjofnktPsaveTfDM Etgs7ivxTbWVZ0GBZYURNz PWOes2EvkP0mkOHKJRN5sG Rhlt9etsWSvEPoBXPzns40 AQWgWP9xC8xvATLtBRCmgg XbwXFvf6NcXPNzhXH9iZTk KQ8UJjNAf68fBEJlHBEMpu WmKMAktOujqUK2wsN8tX7m IChGREEpLlx+IFRoZSBGRE ZoAA7ynnXxj8KjznKfsOjt MFWfbZVzl6QsnTEqh1GzyF jss5YrzOVidJMuIO0xNMJb clxwYXIgVVRNQiBMYWJvcm B6b5VeXVJcVIHcJOX7oVtg lxp8FEKwaT0cUUGvL7rdxu hnUUiwOZNbi6PuyN8lcOXU aTMcj8AbrPWvoDHHsFGwMM 2pfgXwAGzBBQvYQKB1wiPz WVKpo2VtQAgmM1crL44vqK neoBj2fLO0JRP2rL6rKis+ IFxwYXJccGFyIEFwcHJvcH HfOHXzoJwlbbMzU4AzazYf sL1rrAHxxtTiQZ1yAO3oE6 V6dTDdIACweaTzp5poHTkf dmUgYmVlbiByZXZpZXdlZC Lgt2EaWXviPIL6MUkadlJp bmNsdWRpbmcgSCZFLCBTcG HkrOPqGDU6LKgbbxCxxgIq PV9upN5ziDetgK7prVDhfB A1kpcbEFXpBKIwdDfhMGWp YV6baNnwwW2pIfTnIbBkTX qjUO5bUFXeZ3dovOXhSSXv TNAuI9jqKoJheJ1hvAfsWS xjZjJcZnMyMFxwYXJccGFy XHBsYWluXGYxXGZzMjBcbG FuZzEwMzNcaGljaFxmMVxk EpPlMZUwSPmhU5uqZpDxM2 RyAYJmHvExsYPpY2oeMYrk WAM3HTHxYP9tfTZjCZ61cE Bya3fkEXzgrScbfb6vV07y fNAaYMwzsPgaYPMbx39sx7 FmINMdybGhjg5gSXSkzfU7 rY5mVQApdMqeLNTklBTjFR Mmr6FdPCjplAOqogOeLKjx NDZoDKBoeLVueyA5tuSkqo UqlyKzQFBjoOvlQBZuk5Zt JVIeLAovm3Fxfs0ukJOmSX WierZLrFnwfNHydU5eC4Ww ZQFiNVOife6xZLEhoD3rLG ttc0OcwotfKZDcTYZwKFVg hwBonc7lHLPryCJUMG9FSK gmqWNec3ZqzxQrO0tFFSF2 NUQwNjYwMjgxKSBleGNlcH SxZVQxwt09IHOtuB7erZua BJJltH4diB9boPendJ0wGk WhYfCjZQjqVQ7vMYTbF1jt wBReXRIuREUkB0lwYlImhH 9jaFxmMVxjZjJcZnMyMFxw YXJ9fQ== Embedded Images (test code = [id number]) [facility] [id number] 19:23:05* Test Item Value Reference Range Interpretation Comme nts Case Report (test code = [id number]) Surgical Pathology ?Case: [id number] ? Authorizing Provider: ?Dominic Keita MD ? [...] HPylori ? Final Diagnosis (test code = [id number]) [id number] FuZzEwMzNcZnRuYmpcdWMx PZhuvgDiSFnzbYxoFRU4NG QgVZ3avQyxyDv2bCuhXQAc wzS5mAWlWBmir8jpWHF5i0 wvgodmPWGuLNqjKx5mjKRh jNkvDdThYPFcUQu5tL52HV WywM2ouVGdXCm6WXZtiRZg mkZqYaEpMCFiuSEapEH9LY JbUT9fugnuWTwaICltTMOx blW2EBProIObR7PrSCSuUT 3lzyxmZJL4RYgkBXIuMXX3 MkKcMEXnu1Vqugq5YkVwzH FyZFxwbGFpblxmczIwXHBh xmIVQaKUUU7DQTDAQWZAS2 eFBIAWQU0XPUKYYianyBCf JWKrHFFiIKWBHX3USTBjA9 rGAsKtNX2HDVRuSQVrdXZk AIQjwsDMJsIREI0LTE3WZW wgQklPUFNZOlxwYXIgICAg WMYsNLjAL4MNGKQnLDNLT8 ZFCQvTYNvtNo2oYMJIYK9F U4gGO5MBAOIKEL0AODlkES EsUQGnBGPnCE0SWVtcBSML TH0CFNYDVOQDGXxADUKBCR ZDZHuVAMKSP1TKVDkAYWDh ztieXCGlDu7fK4FIXIYRSZ wgQklPUFNZOlxwYXIgICAg ZKBfTUTQA8EKDhWVRJ8GZ1 8DDKEEUREFME2HPTOFCVgZ AO2NSVVUJOCANZJNK3RllV FyICAgICAgLSBOTyBFVklE MS0SUZDCItZZMLaFQXAvIH lTRUFTRVxwYXIgICAgICAt WY5GQCvfKXLXPG9MGIXGDx dBTklTTVMgSURFTlRJRklF KAMNQMEXDY2LZu7ICNXDKa xwYXJccGFyfXtccnRmMVxz t6LnQ0DzSkYxFGytagCsRD OhEcovqedrGUCoRRK7foOv LJMrNJsnCZFqKAlqSu7wuR OsyIiwNrLpVWEkz7qsyhRD GEmoLuEwJ817AUUbSOuef9 xhg6WaUUTssKKgw4A5GPRP aittxEr9f4ywPbUjHpO5sA JsMGftV5rcowAmbHJwX1Hb uJWoiLy9dUwpX05kr9N6Vz fwV8vnIDGmQVWeZ8LvSM5c AOEaOem4ERS6JIC5ELLdLA QwR2PyWC4bEGHwzVErUQi8 i2dbsYhcAIPnTIB0j2veWT mdmqN6VK3njy6tzCz7o1zu czEgRGVmYXVsdCBQYXJhZ3 KzxMoeAe2szAg5jVypMtqy HJQ6Zmo8JQ6gbq22zvy5nC siRSCjztstGrT5NGbqZHJd lvxaHMy4HIzhNAVlzJU3HT FhvOOxD5LiNIRyTM2koay8 ICU1MSkoRCSuJnN5RMLcoQ NkDHCgrCugROxfv377HQT3 HnIqVQ7zT9Hha5G5dW6meV LwEREycRZaOuCuCLPnzm4p bZFaTZetn4PrZPD7jpK1jW NczWMmJMYgFU76Bpemu2Op JnkhSQC3FEBwriYqr5Vhd6 kjKuTpsqEbA0scX4OwXQNq YTOiHHPoXcUgnwYqi6Asn5 GezNZktDs9q2luAUSrNZFb uMcgq7xrFRN7PIZsI3A5bZ Pug7znZOzqPIKqmWC8icX2 CJXxwVRoW4QyaY4gZZQvFS 6vesy9e3ueLFP2VFzdJFXw AyS1nhC0FNKchRIrVSOzrE nhTYyni800PSJ2RdHrASRo m6SzZ5TcyXgpA11awEaqO9 4qUWYqnDnhoX4nbCaedZ5e ZjBcZnMyNFxxbFxwbGFpbl xmMVxmczIwXGxhbmcxMDMz GIymQ6pgXxNrQSAnuSqdSS rll3BaGTXmSVUyPzcrswWq XHBhciBJIGhhdmUgcGVyc2 9uYWxseSByZXZpZXdlZCBh vKyjt5SaP9cfAK5zA5RloJ QlonKxhsHhEPnhVPBhc7m5 rYIymNlpb6UhrRIoHA62ec FfHGFuEKP6ADUxa6kqGS50 iiqhWgYlyW15nuCjyfCdYI Spe4obO6hyaDBuw3Lli0An knSrRHclz2KtXC3gzYBcei sneYG8LWQqwKHpkmTtwkF4 dPzhEJNurV3nfI7zgDuutS 3fNhLkOkWcDRamBA8wTJMs T2rihLUyLGLhHLHkM2ouGs XikH9amDghEfoetlO1AMHo cn19 Clinical Information (test code = [id number]) Shivani Schuler is a 47 year old female with IDA1. Gastric polyp x 6 r/o adenoma2.Duodenal Bx, r/o Celiac disease 3. Gastric Bx r/o HPylori Gross Description (test code = [id number]) d4wgqREcYJInpSHOFTV7FQ MyNV8ukQnjbDc0fIdzLDFc pmK2zGFqMLjew5dfQOK0w2 rhhcCCJhniDUQwFI2tWEmv POReQE5iXrXoHVTmYbYxBE BhcGVydzEyMjQwXHBhcGVy dKT4OMUoAR5bihryBWwoQJ rhZWRuhtL5HTZvwDAtA6Dw XBYsFM9gijsaNMK9CFJODu eyZg0azRIruTxxQwGfPhGx YXJzZXQwXGZuaWwgQXJpYW y1lJ4FXclbUSW0NNAHGopj JbwkqJgxy6MgdHKzKWYwVJ xcaWQgNTEwMDAgXFxkYiBP BaZcVeM8Fcr7RDC0KpU4JG s8USPURLDpQpsoHLW9MaK2 ZWk2KZHnQF7pAYjahOUkSL lnBlweRNzwS931ZDqzCHJv D9HmA4CvMHawYrYzGKvvTC NcKTArMHxwZZVeY2QOCNFg SNM8XiYpJNKxGFh8WJxxC4 MPGSOaFAEcPxJ6XPVxAsF4 UBx4NNASRd8hXAfjKmPqJP w4YUE6ECv7ZkNgMKVhOcDc HRCgSNWaNPufnTWcTP8oaZ qjWXKdOO9ICFNnFUzsFOUr DiQxT1VBF8xIJS3tXVuysA JjaFxmczIyXHBhciANClxw FLPvLH4TNHOqFLruBZc7nt CqUZQrOjCjCSSnH62dx4TS q0AvIO3KMTi8tzRbeqqanZ 3qWSVjynLoTZzNeFUdiF8g ywQTSXhrRJWzK7TmewPmWH qxIDAmmd7bsIgvRRabEqBr bGVkIHdpdGggdGhlIHBhdG audyYvV2T6grAqYJ0nYOPP DDFbwA8uKPZyZRAkn3WvxO PtrJkcR8WjmURlZxCbx9f8 aQX4KVUetgIzAZUbsYFwCG Bpwh3bGPlmUyGmQ3C1XZWf STXiw00qxRL4wkAuYeMaqL c4yPNjDUE7NM6cbHdpfbDa b0s5kU7dLKGrm7A8UEJwk1 S5GRWkaoHpnDCykFYdBHDf AB3ankYxRG99UFOeFKdeUT ugGLT7DOT4VJDihPUkx0ng gtqfOe9wHKogUL0cYRwqXK 88IJJyCLfwNNNkJ8NzE3V8 IOreLTHdOQXrsPHteQ7hmi ZxqcVqwTr6BPSlPRJ7nLUr mJhgMDJaZdtwmQK7UYVkGu UuksEzl3EpgIu8eULbZFdn KKIafA4mgL2lVXMfXCVtxf OLEsjuTTTmMRkxk1SxQHeo cGljWHNhMzAgDQpcZXBpY0 2mp4ZSc7Lqe7uaqHmfm4Ao fDOwCN0bbIGgZK1Ks1jvDI MdqFIlVQY4TWymi0qvMIzw XNX8ULPkRbSmEFXbRK0WVr NwRChrMOi6YAofXAo5KIz9 CR6ZJnSqRQJdIjc6ZyA6Ob PnZRw9SKjmOB7CAFA3CQMn NQOzVVkkYWR9UOGwCBk7HP IgXFxzcyAzIFxcZmwgXFxu W91xeXEbOEfvOjIhNRvdxC ytVUSeVMA6HV0WREKfHoXu O4XKK6nGQZ1aIotucnNpIH UtboDAMryrINJsQE4GHWUo ZXlzOGb6uuMyUSTfKtFpPO CeZ57zi1ZVb8BhJF6AJVb2 edBpcehwrU7eFERcdrZte4 IzMFxlcGljWHNiMzAgDQpT eNJjaK8vtxSDOSpcEGGuB8 JtdxIqAZdpDFOnqe2kkIea IGxhYmVsbGVkIHdpdGggdG qeNSVogLmkljYzD3A5bhBj YD4fAMMTFWTogP5mGQTdNH KqQYGtFTUmiW3tFSD1l1Qg yiCdUSPCGUPfuDrsLY88yG BjZWxpYWMgZGlzZWFzZSBh myGyraZdq30sctZxb7LqRJ 7zuQyuWXhIPKfuXdKuXN7h LUGwpeQeu6EoQM1kMQRemW ReNUWclwpvxRHzRIj6eOZg UGCwBrCkuYmfv6JbCFVxMX zvQC18fcSpKY0hBKgeUX2c BSrdCT5pPDZfFEIbNEYuFt ExqZJwOeXixMBqOdCnI53o BgJHbVIyv5AaM2xdGY3xzH ZsQgwbzREtPEBfyBobz8At uKIrRHSst2JmuJBoGIkuRJ 1dFZH7Nm8whJUdCKMmwiL1 n3QeCBamHISgNusdRHPgXE wde3ZgEUYynXSQy1OgMG9G XHBhciANClxzYTMwXGVwaW BWv7RjBKTSLhwmiSypJxDh kNCfNkL5XLQeiFGuFKK4ZW 4ksQyhRTZcYVz7NYxtUSEn C5VvL0BbNBbxKyQyGKqwJC OcUWNuOCmcQNZiX7YPYAAx UMR9YaRmDJVuKUw9CUlxL4 GWPAKuMVYlAdM8LQN3PpE8 YTn6NRPUSp2kUVqaQcFlLM GcRaS6SSb7HaMfPCPlUcYa ADVnFSTkEIfoqRBzPM9mjV hsZIOuICWpZOO5LPVycRNZ f4SkETVhREhiUkBzKBPNAG XNYW0SRnCTZMGrZrYwaOKq RX3BTMSxtoSiJCnozZckpI 0pjFCxV5gtOrGbWlqpgQie TmVzdERvYzEgDQpcbHRycG FyXGxpbjBccmluMFxzYjMw RLFblVNLu2HvFASPOpImER NpbWVuIEMgaXMgcmVjZWl2 TYZniO4vYj0hwOPvwT4rkE XkUPhcFHQue4z3eWQ5tGLw uCC4xBVzmPeaWxEaXS2oaW IgQJJIIA71vCBbrwUmMVLh dL3tPVPsCFLaEVU6qgxaBE ORDSI6cVGua2Y3ZBijMDJ5 nW9lfIaaFbJxS6M9YHZwSX Noe83ieXR3ovBhZpGqQBIn bi9xaE2nZWqbafAaqBikku Kds6K6WAUdf6F8LKIfqbHg tJHmtFOyHCHzMmE1TCNjTh W4LUEqAURiyHYwTOVjOJ7i VGhlIHNwZWNpbWVuIGlzIG SqlKIvscAaMGLils04M6bb WLNupG3pf9suAlGsBALiOY XzdYSwzJD7OASbpN4wxU97 cqHrmnDBAZ4dfLHrSR3BJJ NiMFxlcGljWHNiMCANClxw FFEzKZuwa0MbMJzznUrhGW ZqTqDtPNjNlRiiYHDVN2pp bTCfJWxlDEBYADkFI4VVBI 8UJLPebEXWOMS0JY4yIUut KNPvI4KlF1HpcuS7z7jpxJ jmx4JasOZqGP0agTWuWV9D XHBhcmQgDQp9 Disclaimer (test code = [id number]) t2xvcIWkNKLdp2xsIVRptK FuZzEwMzNcZnRuYmpcdWMx NNvvuuXrJWwiu8JaE0AwJm AwMFxhbnNpXGRlZmxhbmcx VLRqFAK0xxFoZEOqCOqgTT JpXHosCx6noVGroDrsOjZr VDPbh1votjZHCPooAnZjH8 86WZGbCOdid9qrz7VbMLNz uBBww4E3JVDSyagwqCv6dJ vlQ41xm9J0ZmdkI8nhJRWj RCNmM9EoOD1kQWRbDxl0CN R1ZIW7DYTcFTNuN9AlCG0n MZUvbVBhVWc7l7bjzRlbIN RjUES3b8bjZMepweDyYC3h fi9joSv1s3ecloWeQPCgDH HriLPPLOEeG9QhcOaeVg8x yYk3bPjoNibnTLL8Nbd0MV 5awf33yte9jKjqBGEhqjrb DwZ2GCtkRBJaopliIUq2DL ksJWYskWE7CALquLXjC2Hg XRHfBF9itho8HMP5OWgbUT FhEkO6WTQpgOHnMQFmsHpx KHfvk488JUK5JjKyYR1wU0 Xtm1Z8cP4dqKBgGAJqnPDp GfTtDLHhou5twFDfKZooy9 WyVDP9cqZ7eTIcdMYzOVXi [id number] 1hiMZ3AUhdo9qjZL4eUiT1 lfIuJCnib6bmmE6jXxP0KA rfNO4uRY3hUBVdwG2kaooq XHBnYnJkcmhlYWRccGdicm FjZz5qjGbfFRK0EBlaC6pl jV8cQvZ2XDdfE9jalS7jWB q2GUuufNZ6DCOyeC5tRZ9i cawjx5grKKbnPDssKRUurf B3dvL6HNJvyGWuK9OczY6n MZXqBZ7lknfnx2nyVDF2WQ wvPIHtIRU3GqAhWZBsy4Cb nxz1IaQnr2YheJCwWOukE1 9re267VJDmdrYlH5apsCGs dskgyNAsqnjoXZgdsiU5ZW AgjeAiv6CgDABjICR2GDta UBdvjNCeOEWvhUrrs2pjX4 RscGFyXHBsYWluXGYxXGZz MjBcbGFuZzEwMzNcaGljaF znWVeuYzEaPQQdTSsnA4vt AsCdZ0LuCMEhReQmbWLsD5 ggVGhpcyByZXBvcnQgbWF5 WEkcC6b9LILzspHnqMl8bn XeBdJnFNGfRTU2DEctiGWa DDBtd4YmiwwovHIqQk9czZ UpLKLhmY9eZJJyAWCoZQqo SW5fwYb9MASTrSWjfOUlEd JXDYCcKL37peIaLGADkism f8J0IKgaFVKzi4BofIAkI6 ovi5VnKQUbt49vAV7bz2T7 h3idUCC9QB9ym9UdWBTnuO AiyKKxUKCuw8Yooitwj8Cl SRMdrnDty8HeAMBwobPjiJ McEYLzzkCwuj7vqdIgBMPa KVGeD4CytfwtaQxixpSqMN Bkft0xirRmCIZ4VEIJUHVb NTXqe5DdxA0haTHQCFB4hN Vevz7qcqFIgSZzKKVljq30 WQHsTN0iN6mvATVcDUUvnf NliOTrj1QhRZJpwTD7cEAj NA1RYxNPc78xTHHmQXOUbh JjINXwrFlvzVH3vqG4xJ9h IChGREEpLlx+IFRoZSBGRE ZyGQ9miiLzz3YsfuWqfDna TBVskUKtd7HofYOak5IiaQ mtq2TcjVIyrWQvJT4nEDXl clxwYXIgVVRNQiBMYWJvcm I7z7WmAUErWUQaSBQ4mQgy qye4ZGQvvF5qSWSiS0wyue ffPQnbMROrr3DeqA8qoXGH vRPew8EozPNojWIXlDTvUG 6lfaNxCPtWLKlMWTL7ihCh MIMrh2MqEJzjY8ssR36ghN ffjEi6wBY1XHZ0kK0wMry+ IFxwYXJccGFyIEFwcHJvcH SpRJMohMrwtnEyQ4JtcpNv mG2gxMUrqvOsEA5nML8xT4 P2nVGwXGBcxdKwg1vwRXvj dmUgYmVlbiByZXZpZXdlZC Khj4UuEFxxRMU7TEfmgfFw bmNsdWRpbmcgSCZFLCBTcG MqmLZuDIU9AWypuqThthGi OU9fuD9eaYzjmT3neAQxdI K8ucylITKmDMTdhIqcGAXm XN7pxHnmzI0tMaQvPyCmFQ qhKP2dFFKzM9ztlNIsPBFw RYVvF8bfKtOtmH9mvVscNZ xjZjJcZnMyMFxwYXJccGFy XHBsYWluXGYxXGZzMjBcbG FuZzEwMzNcaGljaFxmMVxk DdYnVZQkXJgfV9pfIwGvE2 GuKULvFrAioMFaA8qdCSno PLT4RTQySR0fxABaVG97aN Waf1ifGIabfClfsb9bL49c wZFzSSjcfLvqRUFwr68vo2 OfFZLhngPgex3iPHOlmpA0 dM1wFEZhbFcuOZSafDNgEY Bbf9GnHVvmsJOcklAaSRtl DGFkWELkqBSjszO0chXplf KxsvKyUZJvoYmcCJZlp1Tl YLIeSQyya0Pawb4pqRCqCU AtwfGGzFdwyWFmcF1iV1Fp XAXeSYWfgh7aIJGxgP9oCR kjx5JzxidsXFLbCQZqZYQl pwLicx3jOKXamQNSKK7JIJ jmaHCkq1UmiaSpO5sFTLB0 NUQwNjYwMjgxKSBleGNlcH AiXBNrri79OVTofB5vgHju KBFpwS8raP9cjGjctY6rIb PeOiKjVJotFT8cMIPeO2fp kTJgADSuWZQrD8hhDoJxdP 9jaFxmMVxjZjJcZnMyMFxw YXJ9fQ== Embedded Images (test code = [id number]) [facility] [id number] 19:23:05* Test Item Value Reference Range Interpretation Comme nts Case Report (test code = [id number]) Surgical Pathology ?Case: [id number] ? Authorizing Provider: ?Dominic Keita MD ? [...] HPylori ? Final Diagnosis (test code = [id number]) d8bovCBtFSBjn1owZIUkcY FuZzEwMzNcZnRuYmpcdWMx DIpcsiVaJNywrTxfKBD8QG GuHZ8vwCysvSt5hLixVLHt fcY0bLGjTQkeq7oqSZE9g7 kjphmmEVGwCGdsFc9wyMTc hTpsSaUrGXKhGAs3dJ08FR QocK8ljHPcGKj9CYWetRJp hjOqLjSfRCTlsHDgkAD8ZZ LjAQ7uwhchFDpwZQgyJPOg daL1VVUalXOgZ2QdZQMgCM 0fgritOIF3IOdxWWHmDGQ4 BrZnLURvx6Gjqmh4KyZndI FyZFxwbGFpblxmczIwXHBh jsAFTrZPLF4ZMCOEOXQGI9 sLAFHABY9WTXDSVtkijUPi RMSbKRYgECEMPA5GVEYhG9 hEXqCfAQ3OMVNdMZZfdFDi OMBmfcVNKzCEWB9FNT9PUX wgQklPUFNZOlxwYXIgICAg FKPxNLiSP8LWWIBiEQUOR1 IGDIgNPDufSp3uQSGKMN5H K9cMZ5JJSVNAAQ0OXRbcDA QuBIYoZIToHM2EWVpmMRES DK0NSKQPTDMRXSlBSUARXA KXPNvHJESXI3VSLZlDZOVn laoiDQBnKz8dZ5ZAZFAAFL wgQklPUFNZOlxwYXIgICAg QCEpQAYUE9OPSxWBQC5AW3 3IRVTBBRINZO1AZLHMCYkX RX5DOBUUNZYGEQTLO3HnrD FyICAgICAgLSBOTyBFVklE HE0XPVRKLfUOFHwVSCYdWP lTRUFTRVxwYXIgICAgICAt JD2CHJlsQRHXNA2KJWNUJk dBTklTTVMgSURFTlRJRklF QJZCODVMFA7FGj2HJLLBYb xwYXJccGFyfXtccnRmMVxz j1GaK9PtTlUjCQuzbyXtNN HsMmjlqowiTQBsUBE6iaUr ZMHiDTosGHAnHAxyAo3liY RyqWhmAbThCSLkz0aiwoAB NYcnVuIeM431HFJrPNkgl5 snn9BgNGUfeVGfp6B9ERPF cwrulJp4h4erSfNbUsT0jB IeVXzvF4mrxsHblTKmD5Mj tEIvvIe3cLhmH84hu7G4Rc elQ5dnLHQxFFGdM1VcFY8x TKSvRpo9KPU1UQZ9DMJhDZ HcD5KyYQ3zDBCzqGTuEXx2 d6ukkKfpBAOsEGD5v5mwQA pgrlY1XB2ifc0ioXx4e0wt czEgRGVmYXVsdCBQYXJhZ3 BodDzoBw7ixJa5vWkjWgzn URI9Vie4ZE9dlp28dxy5oA acYLBaitvpTxM0FLtkBRXs cizwRUx5TMhiUHSjoYF7YB DrzZTvB4IgBHVbUZ4qeut6 GCG0MBeqXTXcIaB4DIJafF ZsEJXjqSvlBOipe038GMC8 EvRtCP4lZ3Iiv9H5vG5whH YvTEHjsSPuTfKoRURpyo9f aKOvZLlrk8AlWUP6xrB0lF BzlVXcTXCqZK19Vhytx6Pq CzzwXST1NDKkwzFtn7Twv1 mbJxTsyuRnN1xhC4FxCDSz JJByWHUwJjOzucQfw0Fpz3 JtwRAsaDz7m0rgTRQtGXUt zMybv9fnHXV3ZQTqX6G9aF Qcw0voNAofEPOfjTY5qyG4 PWQouDXcQ7IxnS2bDTUhBH 0edcs6c5zvJSO0BGbgGORo MqH8spK2QDVkjQRxZKBgnX eoOPtee882SRO0TnQtNLHx z7KaW9DxbGekC34ntVhkV8 6vKKWqrAnzgS4wsNibfT6o ZjBcZnMyNFxxbFxwbGFpbl xmMVxmczIwXGxhbmcxMDMz PHiiH5rzMbHmZRFygAwnDS hgj9EaFYCkTARwJpnuiqEr XHBhciBJIGhhdmUgcGVyc2 9uYWxseSByZXZpZXdlZCBh bHarh0JgE2woKN1yI7JsmP ZtxeKkjbTbHEfyDUSxh9p0 oSHnkWmri4DyjBPyUN99pd JlUFRvANH3ZMBcx3bmFB19 ojkeKpNbaA48cgReeuZlZC Jnj4upC6eezXIeh5Iaj3Yt pvJdIXbas1YnRY7qcCLlsu bngIP8OYFeyXSjnnUethR0 tSzeUCAzqC1gcD1vfPdpgO 8lXwZaTbNpMGmlGG1qZWVt G9dfkLSeNNZhZMUmX3cpOc XsqT3qkEaoPulzieM2MNCa cn19 Clinical Information (test code = [id number]) Shivani Schuler is a 47 year old female with IDA1. Gastric polyp x 6 r/o adenoma2.Duodenal Bx, r/o Celiac disease 3. Gastric Bx r/o HPylori Gross Description (test code = [id number]) g0yuhOBzUJYoxLYZEDC3BR NeQQ6ueShxuNn4qTztXWOa yuK8bRZqKOfzi8lvUXT9x8 wocjHYLeeqBCDiSL0tVRgz XUXwNM9wPmMcSCUrRgBdZX BhcGVydzEyMjQwXHBhcGVy eMM4JDYtTG4bqrhuXWwkWU cdMJOgktA9JKEstFVnD8Lt WXCqXO7ldlobDJS7AGEOZj qtPa6rlJKytCatQuPgYhFq YXJzZXQwXGZuaWwgQXJpYW a2vH7QIffzUTO2XTJEMyhk XrtnyAsqk1UpxNMaMGSeKT xcaWQgNTEwMDAgXFxkYiBP XfWaBtU3Bph2VEH5JmA5IN a9KPBQOPSqCtxpRNX5ExM3 TMl9KWJoDU5rNRsupLKrXA gqHtdhFEcoY266XUgqSQFs J1MsK1OcGTvoHvJuQKhkOP IaZZMwGQgjGVRqN0BNHRUt VCL1DsCjTXIfMRq4NPrqM0 QPMAChXRWiEzH2MSTrVxK6 QTx3LQQUSo1oRRrqBdSeKQ e4WTH7MGk6JxWiTGWmHfMr MNMvCNLsLZyqmHXpAP9zmM haNHGqSR5HXEQnUEogYQUw RrGyU3MXA2dGFZ9bITisbY JjaFxmczIyXHBhciANClxw HWUrFD7QUWRiKHlvHHc2qz KnQJJzQtDbYMKmJ49kw5MT g4KpVR2COPz1fvYmpqiusU 3cYHQayeLuOHgJnMWqhK2e cmXFPIanAQPtN2YddkVlTQ ycOMTdce2okQotCDrhAiPo bGVkIHdpdGggdGhlIHBhdG yxmkEqP8A7khOlBB4qLUUP NZWriH4vRYIbJXUhj8PspN TqtFxvG2RafIZtDvPeg4z8 tEH0UDFxfkCiOPFzmFJqIV Ffzl9jTYduAjCrB0T1RCWq EUMyu12fjQK6hkWbZuEljZ o3aRUmCQJ7GS9yhWfhbtSe e4p1pG7tWLKds2S9FMLlu6 J8OURaylQijTJaiQKtBLZy UR5ockRtIM76FQLmVQqsVC xgFMZ2JCG5FADagTOsa5ef pmmcNz2mPZsjXK1tHZiuOG 90HGNgPCtzFWQaE9TcX4K4 HMepLEUfBZCksMOzsO0jil KjfbNjvQo0OTIoTJT8dMAs rYprDLGzIixpjHG2BOHtXw ZflkJls1GxfCa2hNTlRTvh IHKtsK9onO6iTAVbVRDtim OQArtxCUTgKSvrc3NsZFfo cGljWHNhMzAgDQpcZXBpY0 2qu9AWi0Pqf5qkwKibx0Qk hEXcBU0tcVXeIF0Pb4jaAG DmvVRoRTY4SZlle8fiHUuc BLR5YJDhYgUrZOBxDO6QVc DrXVnbDYb6UUrcUGi8NIg2 BZ8RIjJcLCGnJzr8FbT3Xr LfOFy8OGluLP8NJTX6ZDUn MHVaDZrrSPN2CNKzETe2YS IgXFxzcyAzIFxcZmwgXFxu I16inNCjDYimYfMwKFtqxR mcXTIjOLC9VS9UAMHwNzGr T3CWX3eVMS8hAjmlxuDwCV CubqMZTcbfBGKwDX3FXRFe ZDseXFc0dcQiOVGfIgVpOH BvP28su4PIa4HxBJ4ZIXl9 lmZkuuttvP7nLXOgfcWhc6 IzMFxlcGljWHNiMzAgDQpT hEFxzZ8ynwGTWBegSCFmH4 JcnlStFDbxHCJgej7cyBcr IGxhYmVsbGVkIHdpdGggdG iwLQQefIqkbiQwK4I4tzDc JI7wDJTSPXOmaP4kWCAeUJ IcNXKbKQTeoL3bGHJ1y6Ae onNwABCOQJTatStmNE07lI BjZWxpYWMgZGlzZWFzZSBh npWbstLag65xjbSsc6TeVN 9jcWmaUZbVYTjhUoQwUO5w KJMxisKbo5UsHP7aZLIyzD RdAUBbygulgSHjJWt0oSBx XYOrHmZniKuyk5OhCZOmXN yqJI64pmHyJQ5mAGgfBU8q KCjlGN7uGSGiFDHvGOIoLr HdtPQuZpXgjQZwRjRzF83x VdNTgDXfh1LcI6bwSL6bqM NiGtliuLNjJNXdcOccy3Ye kZWyNRDbv9HheDZdLIhzXN 4sJYX7Ui9idNMwHGEomrX0 l9OhJAeeKFYdBknlBZEmJC wuq3KnGOWufTPIq8TgIM4J XHBhciANClxzYTMwXGVwaW AVo1IzHLJRIkjzfZyfDxOb rEKgFbB4YGEmnGKkELD4YQ 4ruKbwKKWzHHq6TUhaOZJi T7KfN4AoELlhNcGoDBgnTB PdJYZaYPxhBLDlW6VJBAHl EBI9FwKuIQMqZTi7KPjsD9 ZWBHWsRDFnGdT9BOQ1XsP1 MNa2MJNASr9rLJwsSdQwTI SlGbE5GDu1KcPeRISvYaDp VJFmXNCuTYjczHWpAM7gbN yrCLNfSLZdLMX7ZTQscUJK q7LyRTOrFKtnTmUhCYITET KTBM0AOeMIVYMbCwPdvCNo LQ9IYRXtzfXoXNmtlIpbtV 9ccOEqK6faNrNyLpvzzShd TmVzdERvYzEgDQpcbHRycG FyXGxpbjBccmluMFxzYjMw YCIgnTTXj4IqYEWSBaAsSS NpbWVuIEMgaXMgcmVjZWl2 VTKeyW0uAe1mcPUneB1ujT ZzKAuwCHLdw9k9xZS8gNAs hRW2uIQqiVwvCuEmOX2zcG MwSCEFVD88cOLbmxFnVHLt zV0dLPOlTASiAAW7trnvXH EGJDX3xZGzp1Q1PXziIQD0 dN4qeJxbQzDgY9C1FJGyBH Tur41cqJH6zgFeFbBrUPZn bh1syO5aHCmkrpPdsBiigj Blu8C2HCPdg2I2ZBHjjjNk zUGdqWJbVLYoVgC2VSQlYs Q8ACQxPHNjiBCkVSCfLO2y VGhlIHNwZWNpbWVuIGlzIG OxcJZfzvBkQGNtix98K0md UEEzeC4ff7wzCsSjCYPuDZ NznEGxtDK6KOAgiG7uiS28 gkHimiCTVI3woDGwEH7GIV NiMFxlcGljWHNiMCANClxw FZLuQEhmv6AcHVsqdOrpPK JvZtZwPMoAjOzhHUBNH3rp hKGqRXweQYIOIJwUM3GHOO 3QJZFxfVTZGVI6MR8gBKrx FINnL8NoG0BcplU5d2rcoR bgi3KuyPZyWP5teUFsPH7H XHBhcmQgDQp9 Disclaimer (test code = [id number]) r8imdOFuBXExg9nbRIObiD FuZzEwMzNcZnRuYmpcdWMx NGxbsuIlKRjdh5EuF2KsHu AwMFxhbnNpXGRlZmxhbmcx RNTqKEJ4tzKgRAQdMNlmOG JrPVmoOf6cwVZmuPwzYhDk GPHyi1flzjVPOKsbUsArY4 14YBAnGCqaz3dwf6MzARRf fWFvz9G3UYPSlyewtLz6hT bgY55bw7C3ZcvjL2agKTGc HKFfB8UlBE3gAVScCsr6SU K6ZIR7POHxKYVzD0EpSZ6n UBNgyNNbSSx6g9xkeInqVO NwYCC5h8hoYZpghaQuJK7r ba1qhHa9o7yigaFlHMUrGZ GkiCXUFGCyF5BmqNctSy6q uRq1vOnuOxdpELC5Drj2XS 3ngf40hxg2pAtlTHNftpzr FiR0QNtfKRPxvyflHYc9EO uzPRUatXW0XQJseDXhY3Fz QDBvCR3ygzj7ORB0MXluJG ZcJhE1FSJrzYDiENYtsCtq UIylb434OOM8IeAsEB2sD6 Ifh3O1zO0niWTdCRSouOKk SySjFKDwcd4mlUWmPOlvm4 FqOMV2ujP3kGMadQEvFYVt ID18Sxaqp2CnGbehw5QtM1 1ieEJ3LMvbd0plCG4fCdU0 tiSeYOwda3yfaA6zCfU7CM ajYY8oBY1bNGYtcU3dzusl XHBnYnJkcmhlYWRccGdicm WfXx5gvNibQEZ4RBvnY9ig iQ2tOlQ6UVfhO0klyZ0eXJ m1FXotbBT2XXWqeG8yQF4y tbgtz7afDKisDKohWGOjiy T2xlL6EIBvzAGwT4HlgZ7s GHWyMW3nvvoix3yiQXZ3ZT wkAINgQOY2JzYyJPJmo7Si apw6JpNpk2SmgYCiFAngJ8 2hb864DAGaarOnF0rgsXZk eyejyZZyqmndOBtowdZ9MQ TvxoVcn7FvWDMkVYB1OQvs XFbuhTWiNFNqvVkki6ncL3 RscGFyXHBsYWluXGYxXGZz MjBcbGFuZzEwMzNcaGljaF nkNZmcImLnGQWjQEeaH8go TmSkH8RmRWTdKpNtwRVtQ3 ggVGhpcyByZXBvcnQgbWF5 KAdpA1p6JNXzjcUgwNs4bj XqHyWkRMPgGGT5CUiioQXg SOEhc4KcgdejdGFnDe0qkT NbZWHwqQ8yRMMcTFExOPmi PL2emSf8EUGSzBGfqXYsSb QRTUJqAM28wmRhXSSBfcur e8U4KUoyPFJiw2NgtOIuC5 wks5HkVEXbj08rBN8nh9H4 j7vyAJQ2EO3ov4XpOXNuiG JgrMBlBDCol1Yelgbdk5Bo ADYfkzCeb3QiKKXsdcErkA IsWCWaotRevo7anlAfCIKc PSNwD2PzdtsjlBqesvDyBK Ilpk8svhGyNGZ9OXTPSWPs TZPtg0KvcI2bqRCHMRM3uP Tumu9muhKCqMJkJUYxst88 VZEgDL3wZ6vcYGHhPGMllm HnsKJjd0EgQDEycHW3cXHe DR0RBmUYm77hISGhFKRNyp AsRYBmbYkyvND3vvD1zD4x IChGREEpLlx+IFRoZSBGRE QvKU0hwuQgg3RtteOavSxr HGFaaHPos5TrmBJqe5FqmC xol8MmkRMieGRkNV2oUNNe clxwYXIgVVRNQiBMYWJvcm T7s2TpMDYjXBJrLXE4xYtt xqj2NTWijV6dVQTgQ9fusx sqFCpuXXWlj7YrlT9kxPOV xMNll1DctQMndDQFvRKrNL 0vxzPaIKmILGcGYAP9mbPw KOKpp3LeCPosF1lnN33oyS pjkMw5jYY3DJM7zU5bXff+ IFxwYXJccGFyIEFwcHJvcH WlEFTurFnhcyFcO8LktgEm oX4vvUDrigWmLO9dFY5kT1 I1jYOwEANprdSzl4wcKQln dmUgYmVlbiByZXZpZXdlZC Ial8KxDIgbOYC9LUeickGn bmNsdWRpbmcgSCZFLCBTcG QsqHSkCEQ3PJimxaXsxpPb JF3idS2ikUkxxD8xwKDafE J6cvmoVIMnDZJftGieKRDr WN0lnPrryS4aXqWiClDhJP icZN8dFARcS0aznALkDKJw QJLaR4igOkMzfW5tmGccUK xjZjJcZnMyMFxwYXJccGFy XHBsYWluXGYxXGZzMjBcbG FuZzEwMzNcaGljaFxmMVxk ZwJaMYKpTKcrD7dzNyUgA6 JmVTTdJdIdoWOlS0skWGgq DQM8NROeZN2idRTjIM45wW Mtp9auMDrfjZrjop0jN59a cTGnCBxlhGfwGXWbl85vs7 ScAWSnvbTcrz3kCSTpyaL5 gM5dIJMrdWihIJCjxVJkSY Sku2CkUDwpwILtegLsEDaa GWRyPUNsqKAmweL4jcUbfs YgniUiCKXsnHmcNMNuv5Jo LAYiANwmg2Dphy1xjQBiIK UekyOPfOyvbEIqwU6yZ8Xk BSDeOCLfgd1iIXBmyT6pNR lek4OdukiwPARaHCYhQTKm pwOjdp4rLFPjcJVPHA2TWT maoPRph0NjudYzO3jTNDU7 NUQwNjYwMjgxKSBleGNlcH QsRNHecp82DYGwjK8qrVah JWIyoH1deY0haOvynV6wJv KmQlPvKVrkGA3rYQYpA9ev yCJmFKLbFIQwG3boBoZmaO 9jaFxmMVxjZjJcZnMyMFxw YXJ9fQ== Embedded Images (test code = [id number]) [facility] [id number] 19:23:05* Test Item Value Reference Range Interpretation Comme nts Case Report (test code = [id number]) Surgical Pathology ?Case: [id number] ? Authorizing Provider: ?Dominic Keita MD ? [...] HPylori ? Final Diagnosis (test code = [id number]) f5mnvBTvHFDrt0jnSRXwhF FuZzEwMzNcZnRuYmpcdWMx AFnexkIkGGhfjGdnFGF9IW KsGG1ikRfirFz1pRbcTYEy ywM8lFFaVDbyj8xfRQH1f7 iqozgvENLwHWpoMv3yiZEi bBvaReCrJWIuCIs5xU46JI IbpU5uiUMdRSd5SQErbBAd nqEtGlPhBCYptAPydSB2WS BeVQ7khdveTHlcTEbaYNNd loM1GRNpcLGuS2JzDKZmGB 4stoehRTR6AVaoBMXeDWZ2 OlEhDQKsd8Aufid0RyKgfT FyZFxwbGFpblxmczIwXHBh cyOLXeTMTT8XNJGVDVCNS2 ySLMPKGK2ATWTLUvxfeSCe FSAwTTXgMNTPTD4WESVaT2 tRPsRgPJ8AEQNqTGJggOZj STWyomQMVnBWPL2KBZ6SXD wgQklPUFNZOlxwYXIgICAg OMDiEOwGD5TKOJYnZEFBU3 MOMGhPUQeqQg4hKSXJMM7O J0cXY8UTMJGTHK8ZJRrgBG MxCGDpYTUuSH3ZJMpkNCCS LU5YUNLDSMZEVEvLGSHRIR DBRWpSOUBKJ4ZGUWhAILRq bavyDKDmBe0gT1JJYFVZPO wgQklPUFNZOlxwYXIgICAg VGAqVOVIJ4HVUuAUCI7MQ8 1FXIRIWGKJYA9NYEQDOPmV BJ2DFGIWTDBLUGGOK5QzvQ FyICAgICAgLSBOTyBFVklE CN3FFEURRkSRNMlMXROyAB lTRUFTRVxwYXIgICAgICAt FK1FMPgqESRHYA8QULLPJf dBTklTTVMgSURFTlRJRklF HUHWWSLSBC5BXv2HPDTDEk xwYXJccGFyfXtccnRmMVxz v3DjV6TjRrHgPLipxiChMW IlDpcmquerAFLsXZX7fkJm ZKVkAMnzPLVcPSaiUk6mrS NbzCynHtWvPVWsw7jetiBS FXonMlLtF264EVRuRQstr4 ahh5BpKBBblWHcb5F1DQTQ baqhhXr8x7khUiFxPwX0yI XqLOgxT7dsscDhfXIpI9Om yHOrxYz3lUxlG26rq1Q4Al zoJ0tzKZBjFKNfK3JlFI0p MKHzTdb7JVB0FVN5ZVTgCW SkM3TmLQ5pVEUhqBOlULy1 t5vpvMyjXAMdRCA6j4vzZH qnajT2MZ8yjp3deJm7i8kx czEgRGVmYXVsdCBQYXJhZ3 YmsXwjFs6fnUx3yDajYkcf QAX1Kfo2LX1imu63nxb2rB agNCQsowyfKrG1ZLadBJPt gimjAXb0YFerEAIiwEK5YU DdfQYkQ1HfWMTdMV1gfqe4 TEN2HFihOTYaRbL9XOUyxR YbMLCtcXedFSwbz762JQI7 XvNoZQ2rY1Ldw4T6yO7qgY DqANLogXUaTzRxKOGlpg5b bFDeRBcmb5QaQVE0cwQ1pM PcqSJjGVJhDQ31Jiixv6Vi OrzwWRC1KMIrxnWtj3Vgd6 vwYyTsynUoL4wuR6IfGJVg QTUnNQIrCxTaqmByw8Hmv3 RflRZusBo5k5gfIXJbLCQq uIfeh0fmNWK0QEVoE4C7sM Est8ovZUsdRSQdbFF3ucC0 NCHkyNLsO8CyuQ2zBGDtVS 9wmzx2z3yeIIN0DCohSTHm ZeB2bsL7SRBdyOKxJORvnW asGOacw107UJF7KpZeSSIi x7ShE5UeaNqmU30fhDwxT5 7bCJErnPfjdL3bdQtcoT3d ZjBcZnMyNFxxbFxwbGFpbl xmMVxmczIwXGxhbmcxMDMz UXyrQ5lgQbAaMGTdgFlyML hwh9YqRIXlFCBdGshagoRw XHBhciBJIGhhdmUgcGVyc2 9uYWxseSByZXZpZXdlZCBh dEdsj5MvU0itXL3cX6MtwP VmbeSffyMdKBlnZQSys4w7 sWYvbXtfw2NukGSvSG42oq KnOTFrAFO5HEMlc9vhMD98 vhocItAgyI03jxAagaMjSJ Dei2keD6ufrGOxy5Dyp1Xl pzVrJZlwp5HpAJ8xjPQnfs hamQD3LCTvvNJqkqVqxgA8 oSxtXEUjvP0dhF9chEiemP 3zFfToHgMiBHyhMW3mDWGo O7sqtSQyKEQiOMEeX2ucVm UqaY0zwCvqMlybsvM1WIKu cn19 Clinical Information (test code = [id number]) Shivani Schuler is a 47 year old female with IDA1. Gastric polyp x 6 r/o adenoma2.Duodenal Bx, r/o Celiac disease 3. Gastric Bx r/o HPylori Gross Description (test code = [id number]) u2jefGYzJYSzkEFXKYQ6PV VwZD3hlNevrJl7iLybABZa lzG0eYEcBXeeg3ulUVY9l3 qklaRIHymnWGClNP3fNFya ZEDoXX1cRgBeOXEmDsSlZC BhcGVydzEyMjQwXHBhcGVy dJU9MIDzKX7mhiqsWBqrHS hjRDTitjB1GYGmfQYnF7Es HGPyZH3sxnvyDXU5XRYELj azYv3meMRzfWhuDcBbPoKb YXJzZXQwXGZuaWwgQXJpYW h1rT9EJuevCDW6DECBJskf LuftkEofz4IkiRZpWMUyDY xcaWQgNTEwMDAgXFxkYiBP JrTiUiM6Ljs1DAK1XdG9TB m5ZLEMEWNqVnqvNDN5XmK3 LEv6GCYwGT1pDXmoyEWuHT sdKmotHBlkL792VVfaVKJa O3RzG2ErVAxpNgHnELyuCE UuLAGiQPpoEIEuD5LKDHMa YXP9WcZvEUQmAQz0UGshC3 ZBCSDqYESoEqU1YOVcAuS6 WUk7YMQAEr5wTXrcCmPfLR p7WTJ4LHm6QoShJPYyQlTh GWZiEZObGIlreCKaTS3osO gqNAFwXO3VMZAfWLuoYRUm UpAjR3VYL3qLTG1iTJfjwA JjaFxmczIyXHBhciANClxw GYEdJS9VROGbGXnnVJk5sw ZoOZGuQdArVFMwI67sn7PC d4EoBJ0TJQd7dxKfmwlfhM 6nINOnelQdQQkHxYPyuD2a wqXWRQyeVDCpC5AfgsZjCC udLMDeuq7ddDanMXzrKdBr bGVkIHdpdGggdGhlIHBhdG eresCeM0J3qqEqXL8cTQTB PDAtvS4hWTQcVYDxd2HpjA WfeHxyS2AxpZZbAiGpj4n3 xAV6CLUwogZoESIxxZPqTN Tlck6gYMddUoIjN1R2TJYd SAFvy39snBV0reRoEyOnnI l0wVHkKOH0SU2cqAljckFa z4k4aT3hAIZja3I0KCLes4 B1CLAqpiPlhQMeuLZzHIJt AI0qeaEbFD36ZDQnPHrfDE obURF0CHN1TRXpjVLqn4fu djcuPs4zLJkrEE2tOQspBB 70KFGdSOylKDQvK3UbO7M6 OHsmAIEeMVGtjLLslB3jux FvydWtsJx5CNCoPEF0kWYo pKrnKCYtKddijTW8EPBvJu ZeohKyc6XleAe1iMEwMYjp YHUopD0uyE9zZMSrFQRvbw TQOchoBSVpPYgto6RdWYqd cGljWHNhMzAgDQpcZXBpY0 3qk8OKy5Zrg4bivNdnk6Gn dGOlOK2dxMPcBA0Ss0jjYP JiyDLkRQL8VGcii4lzQWww OLF6BAYfOuRlFYXhYI4QXl WpWGheZNv5WDifTQb9KVh7 BO8VRsHmFQLmWfj1YnC0Xw FyUDy6WOkqVY4MKBX1EKQr GIOyNXivZUS5MHJcLVx0YL IgXFxzcyAzIFxcZmwgXFxu T14waZBjJKsoEeZnCTfnrM yoYIIjTFN9XK7OSMXtTdVt T7WDO9iIWL5vJbhxuiCdHR PrirDJUdyjFSPcGZ3FJXLg PTjlYNx6eaSvSXCyBnSxVC UzB68fi1KQl4JgLF2ZPBj0 sfMzajkdzJ2uQMZfbvLxy8 IzMFxlcGljWHNiMzAgDQpT pZSbcF7kgeLVUZccFYXjS2 UxlyLhSQzcMICyzc3crFyu IGxhYmVsbGVkIHdpdGggdG fkKIQbhCyqwoSaY2T3tfPw LH9mSRJMODSdvP4xJAWiYG ZrJNQlNGNolY6nYNV5f3Mk rnUtYHGITMWjqPkeNL92vN BjZWxpYWMgZGlzZWFzZSBh hhAdqdPpl13oudUta5AcOT 8seTtfLPhDHPwgXbUdIX3b BNTniiAzi0DcMP1hLANecG EoTRQvfttdxBDbHAz5xFUf YHCvFnNddZctd9YyNVDnJQ qqJU20vyUpRJ9sJMieTD6t KQldGJ7qUPVcSAPsSDDjZb KqdVQaBmRwbDXuCaXoO56q PvXDzEYwy3ApG6fzWS4oiH UxUbrqlCXzWEJmnAvzm2Hc aKUeCLEpz8RwiVQtFLsuSH 3qMIX5Hr1icREgVTNqnoZ1 n8PaHVhmPMNtGzktBTEdDQ vaz6GkNRAyxWWYp3RnXY3R XHBhciANClxzYTMwXGVwaW CKh0PfGNYDOwgqzEuxWgCm vSOnHjI8RJHcxOZgYAU5AI 6shUjeMUElEWe5QIjdXLKo O6UfR4WlXJiiYtKhCLmsJJ QeSQAgOAdzFEXjL1TWTMTw EDD1GuHuXURbMMk1JLqgV2 LZWKTiIFDwXuP2EGC1NbM5 ONz9UVHEAd0kYYfgPiHkFM HfNlT5NAr6XxToSXYdGfPz BAVeBULoEXovsYZcQV4svB wrPRNwJMWmLOA4BHMdoANN q4HjZKInRJhsElEhHPNVQY ADFX2PChBWJNOyYxYrpVFa EA5AALIeolJgJCvvlCiqdB 2vyUQjX0iiIsYeQkblsYvj TmVzdERvYzEgDQpcbHRycG FyXGxpbjBccmluMFxzYjMw ZPJxlURUu6FrWVFVAvZcVT NpbWVuIEMgaXMgcmVjZWl2 XULmxY0sZl6oeEAbeI5cvE RzBQrqLYOby4r4tNA2fBDi lAI5mEXipPdmNnOtAD1lkA CzZBSEWR38vWYyntAbZWQw wW9sROViPXDrEBN6rqebRA YYNAP6tLCca3O0RNaaDQM5 oX5snDchIaGeT3G9VYYhTC Ozl39dfIM8slTqWxCcAYBp tv1caU8kSYxvjeFziToane Dwv7E6KSBhr9S3ZCQcjyTt oWPqrMOhOIJwZkM4EOTtYc H7WSFaWFCcmJZyRZHoKV2o VGhlIHNwZWNpbWVuIGlzIG EghXPkkaKbARPmfm44O2yy DDWqkX8xs3gjPgRwZXLlYC UbfZBwiBB9GLBhiW3daB44 bxYetbISCO1dwGLsRR5TXQ NiMFxlcGljWHNiMCANClxw LXIbTQbrk9HlEJbthGpbFH ClViRoTCxDlCcxAHDUL4fb yUDhKCliTWHMGZdSR8PTRW 2VXDYxvGMRKCD3SI1dRDnm VCBzX5HwN1XqrrR9x1xifP and3AlzZAtFT2koBWtCU0B XHBhcmQgDQp9 Disclaimer (test code = [id number]) y0wutKZpSACmi1gqDKCjrQ FuZzEwMzNcZnRuYmpcdWMx DTodptNbJZhda8RxA6AoRl AwMFxhbnNpXGRlZmxhbmcx ZYXaNNO6jqBzUWSrMXynPT DmQKifLa8dqCPulTdsNiIq XNVex8epzjAZHUkfQpBuE7 96PTWwTYzyr9nbg4DyQZZq hSErz7I3OXXTgahqoOr2kK vuS97hj2V8GsmvY6doDWVm EGEdF7QhPX5xUIUkNnc2HI H5HTX1ZUAtMAXgG7PuUC1m FTPyzIBsKHw0y5pgpCplTC EtZHK5s1dpUGqmaqOqVC2y wf6iuSs8e6livrCjFNDuGH KpuYZQAZNgG7YegQrzXa9v tQa6wTugOmrhXRF0Hxo0KK 4sbs74jys3sLhpXTXocaex DtO8PJksZXLgoiwfSOn7AC ekRMLhyCN0CVXuzWTkA5Xb ZTKxMV1szkl1YUY5WSvtME JoIwU7PDJvmFTmDLHorMxf WJnjs076EGY1LrIrKF6kV0 Som5B9sP2plZOhSHLruNCp FeJkKNMmfb6ziWYlCXmew1 IbJUS2icD5zJIxtSUyHFOf JA71Afwhh2JmQrrzx2YhU4 7gjDH1PNdsy0umQR0vKiW1 ghOxDQnrk7mlrY3oLuL9YR rbOG7uBZ1cVLWnlT0otrdx XHBnYnJkcmhlYWRccGdicm ChJp0qnRqhAWN2SWkgR7jd eR6tDyU0UWanW9cqaN5wHV z2SIkwfPV5GZTziH3iTV7b kksbn6tuOSjbEOlnGDYihj A1cqM0JXRdbSUwE2WuoR3x SKQoEO2xixirc0quUDZ1YH dwNOUwOQE3BhKaQJDvb8Ts osd2MaIow9OjjBRlCVmaF0 8zq046PXPksbXoG2hsdAEl tezurQUcgpwbUGspubU4EP QuckVih9NuCYDsOBO4BKdv QSwtnPJoPJHxtIvsv3blK8 RscGFyXHBsYWluXGYxXGZz MjBcbGFuZzEwMzNcaGljaF xpJPvdBhQaVZVfNHhkE0ju QfXdI9JeUXFiOuTjlSMcY6 ggVGhpcyByZXBvcnQgbWF5 ALckL1l4FURiztNngOn3gb YsDoQkGACzJIY0REvrwEDr VRIbu3LdisoxaQMkOu1pzG WnJDThhR3uIFHkLQLhMZqz IA0ipJa7UDLSeHGolFXyMm ZHVACrKA83zdTlCARVqutm y0B0BQvxGOXao2IcaSXwN3 tnv5KiBDTqr35cDW5ul9C5 m1hjNAD1NE2mo1UyGLFatW XdiDWlLRAsv2Mhehqwa2Zg SISaqyMvy4PsPCIytyCwjC BjKWZbiwGudo1obkNoJJTy HTMfJ7SflgywnLijexUdCM Vgzj4hmkNrOWN2HBWJNZEe VSFsa6LyyO5mxRWWVJP6aN Npds3exfQMxZMwOVGrkb39 FNVzBZ4sX6avKQOrSAGgmo XocBBvq1RxYDFdsGA5vESm LA7MYrBQe86vFMYlKEBNjd ZsULOunQtebMV0cqH0iR2e IChGREEpLlx+IFRoZSBGRE RyRE5bqjBvg1YvacMlsIsr BCZadTLtr7OnoKSbv7OiqC acf6DghELduXQkQF5hPKPy clxwYXIgVVRNQiBMYWJvcm N9v1TdPXYrHZLwIDI1hTll tgd3SPPxfJ4nLSZyI3jhsn qnJDzlEDGoi6WdfE4puULT mGYhq1DgfORonBCAaBSvYC 6oxtZzCIqWARuUYFK1btJd TTCeb7TeDGumH4cfZ12xnB hihYi8uNI5FFG2eV7iEon+ IFxwYXJccGFyIEFwcHJvcH PyUWWtoDvrgiMyJ7BouaVi qM0pjUCtnuLePH5nQC6hB9 W7fVCvYJFrpqRel4plTYod dmUgYmVlbiByZXZpZXdlZC Uus5TmZMiyXFU1EKcdxtQe bmNsdWRpbmcgSCZFLCBTcG HrmFFgNTL2YFjwlzGtylAd UY3uoO5aiNaahS5zeYNphJ C4qjqtMEBaEAVfxXpyPDLj BZ6qmYjbbL9yDyMlNwGhJW nmEF3oVXImF1opiFJsMRGj VVBjY5qmXcNrcQ1saXagGL xjZjJcZnMyMFxwYXJccGFy XHBsYWluXGYxXGZzMjBcbG FuZzEwMzNcaGljaFxmMVxk MkAnPKZaSVpfS7dgVxYzX3 QgURYlHqRbpGAyR5nfLLgt GWQ5ALFkEK5azCUfDO43jW Wjq3mxFPaqaViwep0yC05r uCFwAJmikTcwZFAyr26av9 HtHFMczcQdwx7xSAMcnkZ5 rU8wZSHbsOvzMJMxoHJhFV Ekc3UdMZjpvNCjmzPjYNjd SXKaDEKmcMSxouW9yuIfek JcriDxNPRdqQzfPIKgh0Fs CWZrSAsiz9Glja8unVUtNO NgxxNDrKfqfMOsnG4aA7Ct APLuJPRszt2qWEDsmX5zUH dgl3BfbebuGDIsVSIpLZQy ycUgob6kEVYowFKQCI2NBT cnjNQco4JqiiBsP5lOKIQ1 NUQwNjYwMjgxKSBleGNlcH WoAASkgg05JYUhzC8uuRqe QQRysO6lbE4ksBdxvA5lPz NsDvWuXSbvDI7bWOGsI5hy wLLsCAMlWPJuB5glSjNwlM 9jaFxmMVxjZjJcZnMyMFxw YXJ9fQ== Embedded Images (test code = [id number]) [facility] PBZM0005-04-66 19:23:05* Test Item Value Reference Range Interpretation Comme nts Case Report (test code = [id number]) Surgical Pathology ?Case: [id number] ? Authorizing Provider: ?Dominic Keita MD ? [...] HPylori ? Final Diagnosis (test code = [id number]) c1dpdTZbLFWwr6ddRMKsqR FuZzEwMzNcZnRuYmpcdWMx UZmvhaPnFKxtkDctZKP3QH XcOB0otAcbhZe3rAlzHPWh ycC1kYNcVRkwq9vtVFX3z8 hqzbloGMQxTSsgGe2yvCDs fBknFtVvJSMrZOd2wF00JG UetX3euETvOLx6LQKnmBPb rlSoJrZkOENpjSRrpLA1XP MhFS2uvrgqLQepADoxLYGd ozU7AJNoeYJxJ4GuPEUpQG 0dvrclKMY7XNkiGRFhICV2 EpEdYIVkf3Iydzx8MpYrrE FyZFxwbGFpblxmczIwXHBh krBMPyPUIP2CRYYNXBKGX7 rTUCOYAB6ERVYEKvqilPXl KTMeGDDiGYGSRY8FJWVjJ9 wCVbOoYV0HQCVeLFNczWKe NCDzavPWQeGUWK7VIV3OZB wgQklPUFNZOlxwYXIgICAg TBXsWEwHX3HNPLPaRDWHO7 TQIIyHCLelHk2bZFCITT2W Y1qXG3ZBVBEOPR4LNSjfAG PuWPTsYUVuGY1ORSmnKZXB UG7CSRJZPXTIAHsQZRVYYY KSJZuBBDXAI0YUNFjDNPAs vsqpUBSbId7iE0OKUXQJQB wgQklPUFNZOlxwYXIgICAg GCQzIDORA9FECxXYMO9PF4 8DQMUMLWSQHU2KRUWDWMxR MY1YOWSJCZRRQMAFB8ZpcZ FyICAgICAgLSBOTyBFVklE FV7UVYNTExGJQRnQFEBiAC lTRUFTRVxwYXIgICAgICAt DN6VNJfwPGYOXM9YWZAEVp dBTklTTVMgSURFTlRJRklF FNDBABJAQB8BZu3VMCZBMq xwYXJccGFyfXtccnRmMVxz i2OaN1GnSoCjGNobgzOsUG XtEroilhvwJIVuITE7eyPm DIBnHNslVQMrENawQt1zcV GwlAkaOxIwANNkb5coimIE CQulTiMzU332QUHtMLuwh2 uxl8GySIShlHWfb1H9DXMM cfwinIp5q0sbIsXvLmD0jL KvPAwhH8ijsdKtxVOeY3Rc nIYpkCs8uZmzC75oh1F9Mm sdQ6kpAAUmCQTyL9QcNB2z PYJmPnx4WQC9WHU8GTVjDM OvG2HcVE5rAXUvbGJxSOk2 y5bqpRyvNCEvKQA6i4xqHP hbooL1LD8mqt5scBp0f6ve czEgRGVmYXVsdCBQYXJhZ3 VkvVxrHs8lnTa3nOfoHgnp GFE9Bzh6AU6gtt06tcm3mA gbKEUvljexHiV6OOzzNTBf mbmnJOc8URrhZZEouTP5TP IngQAtK1XsFFFxNB7vcwd6 NWC6GTpqCTJbGeV3LOKzwC QnBPUliUplZUsnc269BQI2 WhDoGT1uF6Ogq6M4wY2abI YvCFEqiARwMgZwTQKmlm8o yXItTRqny8KdWTO2ygS5lV TmpFRgUFOwWQ65Kuffe0Mb PizhZQC9VOMswxWnz1Iyw6 gsZxRhbvJkF6gvC1QsRCSj GYWdVONaUfVamjGvk2Kyy9 CqoVSgnQa2r9rdKUTnXQBb mUlqi9gkMQJ4OPYmH8B8lA Djb9aaAQsaHULogAJ1ldC8 KCQygAVlD0AsvK6lKUGyLR 7lwyk3r1xdQTP4RFvgWINf VwR0zaB1ZNGiaIVcCHIrhQ yvXCbjp151FRQ6JmZkZSQb y6IdK9UsaWsjH89hbEsaE0 0cSUSzaHvkpA8xfYeahF3e ZjBcZnMyNFxxbFxwbGFpbl xmMVxmczIwXGxhbmcxMDMz ITooO2paSoYoNBNhwLloDM lgz7OwUZCvOPBuChzbieDy XHBhciBJIGhhdmUgcGVyc2 9uYWxseSByZXZpZXdlZCBh jSean6XrZ4wcFV1gZ8MrzW XgvoXqngQjPYliVDYze6f7 nASonKukb7RurIAiNX16hl IkJULpXAW3GZDbn6cpHV85 nkafKcGomH32emJqgpPqNF Rby7nbZ7aasYObk4Bgi1Mp uuIfGGyby8ZtSU7tpENspq zsyGA3NLHrfWWejnEkspO1 zEiiKABbjC9cgF7nnVwxoD 1jYdVeNoApSKmyWE8gAEEr J5sxbZJsOWMoZPBmA2liHs WheY6miSqoLuoypeX4DBNp cn19 Clinical Information (test code = [id number]) Shivani Schuler is a 47 year old female with IDA1. Gastric polyp x 6 r/o adenoma2.Duodenal Bx, r/o Celiac disease 3. Gastric Bx r/o HPylori Gross Description (test code = [id number]) s3dbxGTvQEYcbRQONQV1YU IzQG7qsRyjhAg3zUjxXCCl qzK8iSHyLIket1ozMDJ5e0 szkiNRSgggGPMyWQ0dCFfy KISiIY1zWdZqKSJvFoFxYX BhcGVydzEyMjQwXHBhcGVy kIM9DXAqWF1knlkkGAacXZ ugKGNrrzX4VNSzfFWfD4Tg KBGlKL2eodolCNH9UCKCUi pxLg9fhACdnVprCjXvFdOf YXJzZXQwXGZuaWwgQXJpYW m9xD0SUcfzRXR5WJYQBhmp YcoqmJkiz3ZkbSCgVZKyBN xcaWQgNTEwMDAgXFxkYiBP FoInZzP1Uns9VYQ2NkG3HU w5GSBOCBXqTwrrHZF5RmK4 MXx9LLByOZ9tVZlaiHSlUX gnKrnvOEqdO420PBgvAICm F0XtQ0RnHUddEkQeOAkyQV GzIMFfKXcwOVQeU8IPJGSc RYO2WaAeKOLfKRn4FTdxP7 VBNBJnJYFcMpT5KDYrBhW6 PBa6PWAGOj6mRHxjZhKjVB i6OEI4LBz9UfTnZHVdCqVw HAByZXCrTMknwDStGU6xvT prGLRzTS9LQBCpXXpmZPOr YzMeH9BLY0gLVP7tYXyyuZ JjaFxmczIyXHBhciANClxw SJEwUK1EHFQmWHsgHBf9rz VlZAWwGdKbSVGjD67se1GZ q5WcLN6XNJh6xmPtpmjeiV 4nJVRqyyYvQAdAjZKjkU2o iqTEBIvjWMZkW5IadpMwDQ ixBQLuvt0kyYtzKOsnKoIr bGVkIHdpdGggdGhlIHBhdG bpfcYqE5T5xoStVG9yDEZQ QWUynG8sHIIkBREen0SvxJ GvdRuhZ2MenGHaBrHra5y5 hMY2JVCqzvZvUMXgrYBdPQ Jawl3kCIydEzPaF8Q9IABi MYQzg54vzCW9ikNbIkBljJ z8xTRqATV4EB1nfNimbyGt m1g6lC2eYONam7F5OOSau5 T4GHLffjZywZZuxSTqUTCd IJ0locLhYV04YBFuLZucJI snNYK9JNW6NNMdyRMpd1oj tbqnXb2hMGxkOU0gLYapMT 02DTJqYOcgQUYjG1XzB6J4 TPuwOOJbYYBawGMxhU1xet JufgOkaAh0SAIlSIV2pKQe yTrdUIKwKnqczKB6SHBePx SfmzLde1CsfDa5zOMgNNxm CACcjT6foS0iMLUmQTTfqa MIAdvaJCAtHLonz0VmBTud cGljWHNhMzAgDQpcZXBpY0 3nd0BFe0Fiz9ccfVhye8Am rRIiDQ9ttXJaVC0Og0upVJ LffLKoSKT9XAicy4smKKpc KWC8WSSsNkViWZOnPA4RQi RmLMsmSOd0VMzgWWb4XBq1 HN5UZkLcEOHyTpx6EsT3Xz SaCVb4MNelXD1TQTB5ZSIb MYNaQRahDOH4JOPbUEr2RO IgXFxzcyAzIFxcZmwgXFxu L23tuQOnNLiwGbWuZZnuwQ dwDIWlYVY7CL6FVWCeXjGz M3GDO8cKPD2rFqogwuFtGU WjnqAYRroeJPRhWM5LZIIs ORooJXj5oeZpSUEbEnMsTM YqV57sc3AFc4JgHB7BKQb1 hqGldkiyeK8nAKGlovEbb0 IzMFxlcGljWHNiMzAgDQpT bNGnkP0ucnBXMNooLHGrE6 RewzYwQQobYIKaoe8xsSbk IGxhYmVsbGVkIHdpdGggdG uuWDYkrFagyvGzA8C1dhKk KE7dNMWTYCUzeM1lYLMaAC EvXONsYKFbbF9jDJU3p3Ng bbRiFCKWCMOadSglJE37vP BjZWxpYWMgZGlzZWFzZSBh cmVghkAiw74joqYtc9LnMO 0elGywCDwIVYonBcAtBU7u GNHfwcBzd2YtPZ8wHARzxB AqXKOwuxnpxRIcIWr5oFQd IGAwNmYlzMkwz1JqXWLdNT zvKW14quLrBN9pNXouTD2j OEykYB8uZHJmZUAnGMWsLz RadIYzDzTudLHlDcLyG55n CrVTwYYta4McZ1gfZT2shH NrQwngdMUzERSjjNxlz9Ko aLEtNCSkq3QhzLLlZLhaRA 9lZOS5Fr0nuLRfAINcbmB5 z3PuCUnmMNPoGrypOBRjQX rqi0EkNZKsaMHOb9GtER0J XHBhciANClxzYTMwXGVwaW DFi1DqSMMRElgmbLlnFwHi nKIdUtH1OPLbyAExJVU5HO 0dnHguKJAvRQt8ZLhxDHXh Y9QcG2RhXWjiGyCoJUfrYC ImBRToJZzrQSYwH1HDHRQf YPK7PrMtOKYrTMf5HFieX1 PCJDVdTKPcHzE3BYO0KzF1 UQz0SGUNZt3qOZwrQvThAC EoEiS1NDr0ZqQoSCZwHeVo QEHaZQAuSKsahXQhEM8ckK mlNXMcMISrEVU9OCHtuAHD s4IaSRJhCBsaUsMkXPGXFJ PCQN7EAxIUMQHcQiPntGTw RJ4DXSEltfErFJvxlYathF 8pqNIhB0uaLqRpOuqvhEbr TmVzdERvYzEgDQpcbHRycG FyXGxpbjBccmluMFxzYjMw FDUymYKWs6FuKFTTOoPsYJ NpbWVuIEMgaXMgcmVjZWl2 MAEsjC5oQg0kpPZpfK1lfM IqLEshQDGsu5y6yLF4hNIn kXX5xSAdmFspRnXvRE5peW MhIYUQCZ24uKKgbdCsQGQa pQ5gFXQzYVXyLWH1yfcxVK GPSYN9xUAjb6O5WJcrWPV7 iO6ijFjyUlBwI4A2FDThQJ Bmy29niGV9sqWtHdGcJSFn ee2fhZ0tFYywppVrxCnurx Pii8C3YKZmi1B1HSZbgwJb xKZpwNIvBRGrHzV6RDNlGz D0TOHnHMMacEEfTIWgSQ1s VGhlIHNwZWNpbWVuIGlzIG XqcDCicdWhOVIzch03M6qm QYGzoK9ot6oaEkZrTJZzQI PiyDMdcAG4MXHbvL2gdP85 brIqvtAWKI7ehLJsFI2OHK NiMFxlcGljWHNiMCANClxw KSWkLIyxi3OkJAghdYivJT YbFjQlXAoWcIvrMOYKW2vh pOCaOQaaLAMDWRdHP1PCBP 5ARSFsyMZNVDF8IV2mLVvc XJKkA7JuV3DiveB4s6pbyA oyl7YvuYIaHH8jyQBdNJ3I XHBhcmQgDQp9 Disclaimer (test code = [id number]) d1ctbHDoJMJuq3ehXMOzfT FuZzEwMzNcZnRuYmpcdWMx EAjnbxYjQFfrk9WoU3BlMg AwMFxhbnNpXGRlZmxhbmcx GWIaUDX5mjRbDFEsCRbpWX SbBEloMr4onYEyaEgtSnYl OVMaz4gzofLCLYogSjCbI0 04HAHuTBqww4vsx5MzVNTv dGQxw3X8FIDQuymdcQl6wK bnU22bf6S6SicoU9crOGAe JXBuV6ViSJ2xNDKdGun8AM K5YOJ6GHQmIOXgK4LjEF9j BFIqgUKrKCb3i3xxsUbeQP AsVVA0x6tuICclzaYiUU9o ca7ghOe8e5imczDiJYEjXH XalVDBYDOxF2KluFhjKf3o pOj6lRxjZkmiPXN5Kgo2EL 0uyr50xed7jLigXELwuecw PvK8HPupKTKcfgvjLNi1EJ gkVXVbaCR1JMZxkPFpK3Jd LYQqYW8wvkr6GKU7GAwjOK TkMaN1FCFreUMlESPxtRuk STwzp159WPH0ErUtPW4iP1 Amg9V0oR0vdTDgUPJoiWTh FxDhCTZuua0hfZReYAoyb5 RsUBZ1hwC1pZNmlOItREIr DM37Qzpoa4XiXfgwd6XiU4 7vbYW3RYwgb4ydPI8vKiD8 kiLfXLyce7frrW1aNsU9OA hmJX0hOY9qOUIbiY8aabws XHBnYnJkcmhlYWRccGdicm PePt6peJayQTU2QNwaZ6cv sS2uNjK1PNfgT8uvcL5lWW f9XNtflLO7YWYlaW2rZS5n rxbhh7msACauEZvnZJZkhg X4nsG1FXGlyTTuG5ArqB0i NVSyTI7hevyky7jeHBJ8UN vsNNIwOYA8HlPzCEWgo0Zf xhx0JtMom5ApiHNtELafO5 8xd955KKEaalCuI4xmeHTa kqaycMTljrpcVQggscH8SI PluvGjh4GtZWZwTDQ1HYlb QBxtnRIxBCXcgHgtg0uiS0 RscGFyXHBsYWluXGYxXGZz MjBcbGFuZzEwMzNcaGljaF qgUDsfMyTyNXOeGGoxV3pq EzNbM4RfEWGfGgOlfBFsV6 ggVGhpcyByZXBvcnQgbWF5 MVnqY0h7IQGvynIzlIj9ye KiZfWbHFSbKUO1COblaKNu TLYsy0AzoodijKLfOb7ogK SgURNiuN2mHEDbUASrYHjm WT2whNf0XTZQfEEriZQtMl TQDPJaYP12jfLqPLQIkdao j7E0QCdtAJSxm5IxnHQdG9 tmf9BbLRKlf50vMX0mq1Q8 x2kuGYZ5KU8yr7LkYYEdcE WiyCYbACBio4Yeldnnv1Az HBGhzdBqk0UiWENjqfNufP OoIDRbzzPycp1greTcAXQs MJIkI0KdqhfyqMxirdSvWV Ncpa5kzlNqNUO2DLCVWOEw ZFHeo1AraM6jvFSMNIJ3gR Yluz7eiaYHdBSiYZClsi40 GXXhGV5eD1xwQECpOWMcyp HgaXNrs8QwVOEbnZS9mZEs SQ4TNqKMl73tBAHbXLVGmj PdGHGxpDnhmBO5ipC1kB1j IChGREEpLlx+IFRoZSBGRE UqRV5euvYit6EnbcNnsSjg RSGzbROzd5StmGLpl5ZuvH wap7MwpHTawIHyMJ7yJWEo clxwYXIgVVRNQiBMYWJvcm F9t7BgHYJqYHOnSRV2xCok zit6VORlfS9nPXJiG2mbif uwBGgzTAKro6HzdA5bpNEV qJUjz8UdbOEfkVNTyYSyHY 6uqvDyIMhCZZtFKAM2fwXy XEOpm4TmLTzyW6qpB72reB flfRs3bCB0OLE7aR6kCii+ IFxwYXJccGFyIEFwcHJvcH DaZTZtzSvasxMnQ7EhslJu eM3zkXItdcDdRR1iGW1qR3 D7aBAqYGKpclAzh0kuMTzw dmUgYmVlbiByZXZpZXdlZC Jgu6ZvYYfaKJU9CRlfsjNi bmNsdWRpbmcgSCZFLCBTcG TwiECcDIT2RBtaxtGxdbVl IW0xkS5sqRuzyD1ijJQbhZ K0kunwLXIxIMBopElsMSSj BB1wcPtqzL2tMrRlKjXdQR epQZ5kXZCsP0mltSQcFGMp NZTgQ0jkYkStaV6ieYrlKC xjZjJcZnMyMFxwYXJccGFy XHBsYWluXGYxXGZzMjBcbG FuZzEwMzNcaGljaFxmMVxk BpHwJZVbRNysB8lvPpVjH8 GmLAWzJtZtyRDmW8tqTPhb KQT1RVLvGZ1paJGjTH82nB Rca6tuZZadbFcdhk2rI88s ePUcCGarrAnmJASeh31gs6 ZyTYQckwDuzy4fHAXoxfX2 jK0oKXAblQkoXESikZVhEL Qsk3CkLUojuMYvbrVePOiv VYKyGQRhmHNagkB3uvBphr NblxJvSSXbcQekBTCet5Jk OOKyUSnmh0Dhbn1kzYKrTP XymgBYkEyhlUGbnG6cZ6Nd MPFeXPDqfp9jCGCeeI3aAZ iem3XgpzpfQXAiAMLpMEHi ujRtvv1kLHNuhKCUCV1QAB muxSKpf5EymeEaC9kNWXZ4 NUQwNjYwMjgxKSBleGNlcH ElXYBrnv85YGNfyK0qjWxs AHRowR1btF9giFcqiJ2eLk KiLhHxZZtjGS9mKRBdK2xs eQVsPSWpKJSrX9vlAzLznA 9jaFxmMVxjZjJcZnMyMFxw YXJ9fQ== Embedded Images (test code = [id number]) [facility] [id number] 19:23:05* Test Item Value Reference Range Interpretation Comme nts Case Report (test code = [id number]) Surgical Pathology ?Case: [id number] ? Authorizing Provider: ?Dominic Keita MD ? [...] HPylori ? Final Diagnosis (test code = [id number]) f2xhaVRsGCHwv1bkAKJquJ FuZzEwMzNcZnRuYmpcdWMx YMkbvrArMLlwtJaqPMD9EV NfIF8zaWteeIe6tDlrASWr mhQ0bMFhMDzoz9jlLLV4f4 fbmfhtBSKkZBvcTw4sjQWg lUwyDoQxJRCiBWq7oJ66WZ SmoN7meBVmAXr6WKAumZIo asRfHfGzLUJqmMRyjMJ6MK LgAQ7asbizSYhpMDhxIEKm ibL3YFUukFVsF8BoNKVaER 4aldsvWCW9FEplRPAnTYT2 BdLkBAVpl6Pjens1SyFtjI FyZFxwbGFpblxmczIwXHBh jpFODqUMFE2RUAFDATRKO8 iSVQIPOA6CDEYFTeappAZu VASdWFMiSNWAFF4VUXZiH8 lNVhUnTM4VUEQxMJBweHWh TOWhziDCWqOWXU7HVX9AXN wgQklPUFNZOlxwYXIgICAg HKNjAKbER1TWANOtUDRAR7 QTPDzPFMsvEu9rOGITCB2O P7jMU2AYVIUHYO8PRKhlLQ UwADQaANWnJL1VHVmyKGGS AZ6INKRRXGREOAnZWOFHFR STYWqRLBNMF2ZMSCoHBLXx mqjoTBVkTw9sH7KQOCBWOT wgQklPUFNZOlxwYXIgICAg MBVmZKGAV3KEZkWDIS6TV7 7JLRWBRTDISS4XBHSHQUlF MY0WHGMIKPCAVOICN2EwbZ FyICAgICAgLSBOTyBFVklE KW6JZONZXyDARPzVFARtNN lTRUFTRVxwYXIgICAgICAt TZ9BKForEEFHQH0ZIZJLHs dBTklTTVMgSURFTlRJRklF MWXXLMVLUE0BWm6BCCNVFg xwYXJccGFyfXtccnRmMVxz d8KrE0YjVgBkCQhviqKjAP LxAjawenvbRBXvPMW7bhTj BUSiPYcrXGMnRHteWo2mpF ZkpVdmHdEgENHan3lpxzRL FVcvAfLrS441NQYfYFjqq6 fuf1HyPZYwqDDmf3L8BTQW ppwtvIo7r1leFyBiSeF8oT ThBBjjG3ybtiLwzVTxT6Jd cVYqoKs8cMgtK90mh5J4Oy htD1miEVKnREMvK3ZmWJ2s QQOeTeq2SVN9EVC5VWMhQW JwD2MtHU6cFKFucYVwVYc9 z0ibiTuoNVAtSRH4t5jdED ogzbC5XL4gfg8dbAu8v9ta czEgRGVmYXVsdCBQYXJhZ3 SauNguIo8qdCx4tOnyBvmi HMF2Foj4DT1ajo78qba9eJ qsNOApkmluEjW6GHtmWLUt jfwcJMu7KLmjQSPgpGP2EH OhtDOmU1IuBCChMG2rqkd7 NWV8CAcsSURhNhL3QHOckE GsWHXceGhbVHelh086YDV9 SnByNW2jL5Idi8Y6mQ8rzS TqSMDqaDZqBnNuIOTbrb3z sCMyUKkou7JyOWX3suF6lD TmmLJgYSVvBL45Ttcjm2Gg CkroMKS5DROgrcRfx1Btl5 uoMtAwbzUtN7xqP2FlJEEf APYwBFPmBzJfwyKwd3Iqd7 HdgOKbvRf4p8icJOLoQQZi eInee2crBGH6JCRoP5I4tY Gme9pjZNswZPUfrGN5axX5 EFNhhQDlA7WjfP2gYXKuUH 1tjck8e9jxYTM3FQjtTWZc PvD7dhI7RDThqKXgGNEazP qqOWifu615BVL8RmDwJZRk k4XrC6YwzPujW34upQzeA5 7pLMLdmOmapW6buFdcsO7h ZjBcZnMyNFxxbFxwbGFpbl xmMVxmczIwXGxhbmcxMDMz AUvpA1wjHyXqLOWlkRleNJ qlu9QtUKJuNGInOgpqygHa XHBhciBJIGhhdmUgcGVyc2 9uYWxseSByZXZpZXdlZCBh rAhas1HzH2ojYS9hR1KizI FwpcBgycNdQPqrYONaa9z8 eAVawOtwh3SlzBApTV95wd ZiIZOkKVM2VNAmw5dpXO71 lvlgChBraX24tzYbtyAjXO Tyk2heJ6fdgVXdk2Rne3Bc xwPlJAqhy3NiTA9fhWAwjm osaLQ4JLIfsFAlzpRabvR6 bEfrESIneY3tvO0htLyzuQ 9wHrHiGwIfCBavWJ6fSFBn O5tqwZNqCDRqVVWbX8guLm IbnS1lbAvdFyyzuhJ3GUOh cn19 Clinical Information (test code = [id number]) Shivani Schuler is a 47 year old female with IDA1. Gastric polyp x 6 r/o adenoma2.Duodenal Bx, r/o Celiac disease 3. Gastric Bx r/o HPylori Gross Description (test code = [id number]) l5vioNEoZOOwjTGOOYY9LZ VwUI0xlVmwmCt6cGyhHLTi gcD4sUShAHyqv6fpJJS7u4 vqztZMTclxLZVjZK5gZPay MWSgVQ3eVvDjCJIlNpUjIM BhcGVydzEyMjQwXHBhcGVy cAA6XQNbQA7qmpykKIwoNE inLVIohrA6WVUdaRAtQ7Ul SVInCK3vcrnwJUF4WTIPMz mhPi0woHOnsIonTjCwWdTw YXJzZXQwXGZuaWwgQXJpYW y4cT1HArtzRCJ0TSNPXmly MugnlWqug2BcsFRpNXWoHC xcaWQgNTEwMDAgXFxkYiBP EsSsQeM0Owr4KLI2QnM6VS k2XJYJLRBfRvngVAC6BjL1 PGj1VTSyDY9wOJmfdGWaAZ jyLaviYFvxL966BXzuSYYx E1QrX8McAXykLgPxPUriGR MxKCSaTHiqLBMhP1WMYAVk XCN6KmFgMUPbBDy6VEvxK8 IBQBBmYJPyTtB6HFZlFhZ6 VPa0COUNXa0zOTcfGnJyXB w0YHR2QId5LcAcBLDpEjXw MWAuRQDzUWhedUIyDU7nsN idSHRpMF2OYUSmONpaVLXe CmBjQ5QRW5bLFT1vMVdsuV JjaFxmczIyXHBhciANClxw BULiYO8NXRZbFShyXCp4hw JtCNHeCnNwZLGvP58ta4ER t4UsYO6AOKy3xcCwkejtdT 8kVMAbbrOoGWoOdRZoiN0l rnUAHCrjWFZuX5XvykXxHU cvUTPixy8bjIabFLglDkVx bGVkIHdpdGggdGhlIHBhdG axazQqE5S1qfRfYE6aGFGM YVOaiR4nVMPwURHbx6XupO WrxYhgW1WdhXXdVsCds7v5 iVC5RIPtfqUzHTArfKIiON Vzjm7mHDjhXsBcJ7A0CBLr RXAqp64viCE5upMuLhRhmC a1tSCnVYX1DT7qrQgnerQq j4z6kF9eFSOfa3Q6IIPoo0 E8GLTwrjSnaWDncTVxDSDo SZ9njqTjGQ11BMNtMLcgOA gvBCD5VTL6JOEcnTYsh7vd ojkxTj0tVRlaVG4xZOpaYT 85MCMpDPepAQIhH8MeD6X9 KYgkYZSxSAAjuEJycN5jgj WwprFgrPp9BKWvJFP6tUQj aHwsFFEiYokgdTE6IRSbQx PtvfPbh4FvbZh7kGHeBFtv QLLcmI8hzO6iJDYkMLBbxy UWCltvNUSiRVymd4ZtAZub cGljWHNhMzAgDQpcZXBpY0 3me7RNb4Fks3wiiXogv8Qx dGOtFI0yaIYhAO8Mm3szWS ZafMApAYD3LJink8drCMqn JUH6NMPgTnFyHXItGN4TAg GsYUocWNe1ZKgqZZc5TNi2 CZ6BDeLgRNBdKet7JdA5Ru AcCFn5AOahCZ6PANO6QBCl QMYyPFzyMSO8TESnEGj7OK IgXFxzcyAzIFxcZmwgXFxu V26jyEPeULdgPfSiPEzywO mkKPRjZPW7JC4UZQGsDpJy G3BOL1gJFN6xAarzceDcSS BgpyPZUereLEChRB3PVIEa GQsqLFp3iyDgMPJwHlEfGS BcV97lb7SKg2DqJF5BJEq6 miHsgfyqkT9eUTNxpzIsz1 IzMFxlcGljWHNiMzAgDQpT yNZirZ0ukdZQPGclCWFrZ6 OnapZhYKcdFXGlkq7haDol IGxhYmVsbGVkIHdpdGggdG niTEJxkBidhvCeT7Q0tlZc KS5nGCOZCLRpjQ0nOAAkVS ApARLkUUEjeB6cNCK6h0Kd jpSpCZPTKLZwvHggXW66fJ BjZWxpYWMgZGlzZWFzZSBh qaKqquHdu88oosNeo8GbQC 0fvZfxNDvQZVvnXfTsWY6k WHFbukDhx1VhJJ8uVHQtoZ OnPBGhployiJDzZAr5dRLf EWXhTfKolMizu1TpATRqPH ijIF89tnRvIN0zWTurLO4k GWjbBH3vGAWyPOHnYOKwDi FkwOMvYkKejISbZvGhL20f ZoJLfVQcy5QbZ5lwQQ9nfY CcUznudYNdSVOtlUqqv3Ek eYPpOXWvn7HyvMLfKIuoFU 0kJPJ6Fn5fwXSbRTUajsF4 r0IzDXyyHNZaLbdtXKUfTC ids6SjYPUhxDZCi4TkNN9M XHBhciANClxzYTMwXGVwaW NWj6XfNBWEXcgznScmNwSh cUTjTmO3HISeyETvKJI7QG 1yiFacJDAwPLo4RVsnHFGo W5BfV5VaXBfbTeCrYIxzDY EaHMTeNSkhOFWiC2JCSQCv DRT9QzPeLXMcNOo5XWemY9 LTLHSkTKTlKeK3PCK6TaI0 FVx4MMWFZr1sMVhkHfCiWS BlNjT5RGp3BjPeSYUhRrFp TLZeJNMsBKpgxSHiYK1lxG qzXKJcHOPzFIN0KUYdeBHU u9ZeQPCaQDudKdGnBSKWTD ATYU0BQpPCXWLtBpMbpZHp JQ4DCXFclcTzUHpauIeosB 2asXNvR7ngCdEyJsymgAmh TmVzdERvYzEgDQpcbHRycG FyXGxpbjBccmluMFxzYjMw YGYlvSNIp3DuPWDEYmJhSK NpbWVuIEMgaXMgcmVjZWl2 NEUuvN5dZg9pmSJukP7wsT GcPBicIIYuq2g0kGQ9lIXa sJB4rUQnjOooPhWmCN7gtY ZjUWZVDW30hCEouyUaSXZg xD1uAQYwXSHbCFR8sjvkTN JVHRQ4bLKtp9U1AOorLVX5 zV3khPnzJxWeZ0M5FQChFG Wcp95ufSF2bgKiQrFpPWFa nd0xpN6mBUhwvjPoxEjeyp Dif8I7YNLoo2N8TGPrcsCr xWTsbBDhQPYeFeL8YRVfNn R5SOWnMSLdeSDoYPEcYT6b VGhlIHNwZWNpbWVuIGlzIG BixPSbejOlNNOdek18W6mm BUXinA8cn9ifFlApGOHpDD LjfBYqgHF0WRAauW8ozF77 voZdzqKGIZ5ejGHgXY2ODV NiMFxlcGljWHNiMCANClxw EUNtAMgdn2QkXArprQuxAO QoYiRrVYhIsEqwXDEFY9cy zVKfNRxaUIGIJFxWE4UJXF 1YCLHgqKJJJYT7ZN3lVGtg FIIdA1ZaR7MxxqP8p8ppaP oqh8EjmGGmSC8vqCOyBQ0N XHBhcmQgDQp9 Disclaimer (test code = [id number]) r0mwwUSkPPMjx1ulOBNyiW FuZzEwMzNcZnRuYmpcdWMx GCcsymHxLMbfw6ItQ2MzGz AwMFxhbnNpXGRlZmxhbmcx HYMnBRJ2ssLjDQQeGElvKK RhKDvzEv5cnJQqdNxvImMy TAIik7tdusJWOYnsYnBdM4 52KGVlGJvin1ywa3JsBPQw bRYnm9S9TDYFolxlmPv8dZ veB30ah3F3RkfpQ1ueWFWf BUGgN3VwMU8uAAWcMni3HD Y9HTT7UZVxWEUnB2HiDD4q GDSrePDrFJb7k8zbvJpxXT WkFFR7v4kzWKdpjpEjPX2y ru4ojYj1b1wotyPyNIRlUD XlwLKXRBAbZ6DgnVtmZo0t wTg7dCoyHmcfLMW0Yin8KK 5qdm09xoz4fOifNCMlskjm VwG9FImsLEQspmflCTb3VF qkNYLhoLT9FTLyuSBcK1Yu KIBjYA9prqz6HUN9IYrqBO CmGiZ0TGWbqIApYLNpiHgp QUidh710GTG5MkVhMG5aL8 Nnd2P9bC0uiITgHZFrhNFh TvQaPKYubn2gjWWnCUwjw6 HsOGH0ppU8aUXzbCDzVREj HV01Tqkbb3IcSybfc6UvO7 1gqGH8CGkzu4upCB9oVsC1 ezWqHGxfm2uahU6vFvO8EC ikDO3mNH9bDRQekX5pumrq XHBnYnJkcmhlYWRccGdicm NsIe5fxTyaJTM9UJnjV2ty dI3kYsC8KKczJ6rqcR2jTO z6BBtuxOK3FMTaiP6bBQ2p qaeoh8goRHukHJkaQIBejn S4yaQ6DOVbiGOxI6AywI5y NIYzFR6sikevo1kePRT5DG ndWRVdOXS9BeNwSQBtz8Rb stp1NyNah4HsfDWcEMxrZ7 3rt005XSOuqxSgA3oflLVh tmiyqCIzwfmtQPawpvE2JP IijjMnl8VoCQUbXAG8LFti BXmpfZZlCWIxdGlxo5reI6 RscGFyXHBsYWluXGYxXGZz MjBcbGFuZzEwMzNcaGljaF piGIexJrDxDPSoYNbvV0wu KaFqJ9KjZSBmEcSwhUBpH1 ggVGhpcyByZXBvcnQgbWF5 HAhrN4d9PAOehtRisVf1zq PaUaNtBQLcNSU9BZmbxQRg MMEtg5BqzvvfmOXwLm7sjQ NdZRJgvE7mRRHjRHTuQLmc OQ3elIn4WSTQqPRhtPKwCc EGENCtMQ89asUdKAEYmvlk e7B6YJjxGHMro1BrmXXxK3 xgs7OfPJQnh35rCR4du5N5 j2rwSPT0FR0up3VlZIBwbI PooTKiQNJbb1Svimntz7Lz YXRzygOzt1JxYWYhyyAtbG MfYCGlbfKadc8vgoCtOLJd YFByR6UawpekgBoikdJeKW Khrl2whpZzZQX3TFQYRYMn HNAzg3WxoA0kwAUZLAK2yE Wsve4gsbKSjFDyIWOnmn04 XVRlTF1lP5geCRRcCPLvlx DqpERek7TcCOExuGW6oZFr AT7NKuKTp72yTAAyGGRMwg MjNBSwkVbgfAU1riG4mG8j IChGREEpLlx+IFRoZSBGRE CqCL2gjyMpf2MtnxDtvKsp RIPmvSPys9RypMAvg7NvoB pig6UfqUFlcQUiAY2tMSOr clxwYXIgVVRNQiBMYWJvcm H3h7LdEHVrFCNfVLU9hIhy xic9YDBevF1qHOGhY2bysg oqGDejEOHcr5XmrM6scAQL mHAde0CmjZUgxHOYaVIeFD 0kdhGaDAvAJBbLDRB9drGh WNHuk0XxYFznT3tdO41psK vswHd5dGE4VAN0qA9mUek+ IFxwYXJccGFyIEFwcHJvcH GvFKTmcAwfogOgW8ZmvlVc kR4zkOEcfdFiNX7lST1zQ4 S3oWVjGCAjdfOrz2ubTPbm dmUgYmVlbiByZXZpZXdlZC Ujg5MsSNnxNIG4ZLoxddZa bmNsdWRpbmcgSCZFLCBTcG NflUNoZFX9ZLbkyoCxjnMy VU7qzQ6iwBaknD9tyJMthZ M9bmusLPLtBEFpbUirNNWb MR6hpCstoW4sLtZjEjIfBL mkWT1qSELpX0mpwAUaNNNa WBNxD8gbVmJrbZ4piBkkLT xjZjJcZnMyMFxwYXJccGFy XHBsYWluXGYxXGZzMjBcbG FuZzEwMzNcaGljaFxmMVxk DeAvNPQmWTpsQ7lbXkNtW5 GmMJFdNrIdhVReF5kyUYth TYL3JBFeQT6koYDySM04cS Xjt9hdIUosaEppsx9tO82u mGXuAHyirPruNGHmg83dt5 GgNOUppfEvbn1zOWLkfzL9 sY2hEMRtmVmoPLJdsZMzLK Nmu4JiRSzkfAIrqgMoRRnf NHMtBVFvaXBpnpE4pcBlxd NirdZzEXEcbBzuESJcn9Yi SWLoCJxkq0Wkvk5tjJFlDU QbfdKMgItyqKLjnE2aR1Od XOYzKFWawn8pPUCcqI7yNF dte4EhpbkgQEZcNDTqGKLq mfPmrn3yUNAmgKLPMU5UJU jtlWHdc1AgolDbT2oTOKG3 NUQwNjYwMjgxKSBleGNlcH LsCCFixn92NSExwW1qlFlc FCDijP4qzB9anFeplA8wPk NiYaHzDTnbJY2eUFJaN2bp dVBqAPDgITFeP4dwMeNheB 9jaFxmMVxjZjJcZnMyMFxw YXJ9fQ== Embedded Images (test code = [id number]) [facility] [id number] 19:23:05* Test Item Value Reference Range Interpretation Comme nts Case Report (test code = [id number]) Surgical Pathology ?Case: [id number] ? Authorizing Provider: ?Dominic Keita MD ? [...] HPylori ? Final Diagnosis (test code = [id number]) p4wrhFOhKKMja1shCSTqfO FuZzEwMzNcZnRuYmpcdWMx VJrlplPgUChhuTjsNQO4QN BeUZ1zpMmshOd6lDfpWRJj gaR2kOUfZMnvt4wkSDT4i6 kmnszxSDRlIPthHd2dcGMy hGuwIhPmTEKnIXl5zV81DS RpvU7qrMZnRQi6WBKqyEGt xkWoWtIoQUNjcODffPN5KV TqEN6ynvswMSybYDpvJVZb kfV7UOYnfFOnZ2VxTHFvCK 9nnhrlYZU1PGwqKEJrWBE6 DxSpRFDto7Cxrfo8RiFooQ FyZFxwbGFpblxmczIwXHBh elJRJcHGXB0WJHUDAJXMZ4 mZSJZPCS0XUXXXMeehqJOu MFTxVYToWMZEDN4OJZDcP9 fRXsMbJY2CAXBrQPJoxCGn SEUvggMSDjGSTH8XCN8JMB wgQklPUFNZOlxwYXIgICAg GWApQLzQB6IPWYSuXAOJZ5 LRJIwVQVjtRd1vJGFYFZ4Y E2yGE6PVBLDIAX3PZWxeNS PeALKvRUOkQK0EGBimKRXZ UX6HPXOFXKSFOVxXWMINLK MXZEjCVFEDG3WTPOxHEDDg xhfxXBJkYs9zV5FMQBGXFU wgQklPUFNZOlxwYXIgICAg ZHJmVOONH2UJLmXWMP1QM4 9UHYTTHRRAGY1NSQVUVUwW KE2HMGWDCGYZVISGV4WmgT FyICAgICAgLSBOTyBFVklE HA3VIKQICrECBDoADANqJG lTRUFTRVxwYXIgICAgICAt FH1WQYgaTPGMZV7MIGGKLh dBTklTTVMgSURFTlRJRklF DPNNEOZWHA2BGt4OHFMHBp xwYXJccGFyfXtccnRmMVxz p6RfI7ZuZtYaSVcdzhObAH EpGswoshuoHZSuEEA4ffMz KQZsONshAQMeXXojJf6rkW ZwnBerIiIpVNVax8uwuhBK RAcoEnGuH540YBNgFEezr9 fop0PtVXQudJXeo5D2MDCM hpfcuRb6f4qeHfIuAjE5sQ IyXOukT9oizrXlpWQpU2In jLBqxWu3qMxzB31ot3Y1Yd txS2lvVZYcMOIdN2AaTG0i CRLpCkh7LCQ2HRR1QLCzEX XlC9ErQF5bWJAdxEWsWCq6 y7hizIpgRZIiWWA6s8yxWY dmhmV4WS6lwf6igMs7q3ba czEgRGVmYXVsdCBQYXJhZ3 FafZfoHm6jsMn7lJsfZnjw ESC6Flv0QO8qem32tob9wV pwMTAcyppkCqO0XLkeXSXl qztiSHi6NUsbTYTnjGH8XI DbjNKpM3ZjTNCkRW6qfcv9 YCT6XSjoEJWqRiA4NIXeyQ LhFHZioVblBQvhp871KXN7 IbUmBI1bL8Bjz1T3iU5voK HuNLLaoQTqNmBwUSSvis2k mPRsDOtmj2MgLJE4yxM2rA DxjKMtISBmCK58Jfhee9Td CutaTUM0IDWiioHxf9Byk5 mlLwVmsnVuN8gcN7CjNGEo ILCkPPTnLqNjsqKjb3Esq7 LloMHwwTr1d4nmCWZjKXCf iDych0htMYJ0RTPhD6H0cL Cja4omKYqvUHCfzMW8ddD0 RSGrfMYyE4XdgR9hSQEdMY 0pcuz3j5auFZM4GOxgAYOl KgB2jxY8SLGogHLiCMYvdY alOZoof682SKU5GvZjETQm y2RoH3HyjAdcP65pyPblR9 6pPLLhxHweaB3okVuhaW4d ZjBcZnMyNFxxbFxwbGFpbl xmMVxmczIwXGxhbmcxMDMz UCloY4kyZwFqBQLreKilBG njt9QpESCuWNGpVjgrqxNy XHBhciBJIGhhdmUgcGVyc2 9uYWxseSByZXZpZXdlZCBh eWryw9KqN3xmFZ5jD3KcwG KzkoThohFgLOslQAZuc1a4 mKIenMcxl2NefJKxQC58su UuQROlLBQ8HXRxm5gvQH63 orlxEfBjlM21iyBdalLrDB Gmm8grL2ehbSNmf3Mjz3By nmQlFNyly5VkGB9fxUUlxx luiXA6FRVodDCdpdBymdS9 bKlcFXBjlN7ruG8igOwncO 4rTwYeAhBxLOwtAQ3aEEZe W2zabSArCVZnULTuU1faVj IegM9waVttDeoiwgJ0OPJz cn19 Clinical Information (test code = [id number]) Shivani Schuler is a 47 year old female with IDA1. Gastric polyp x 6 r/o adenoma2.Duodenal Bx, r/o Celiac disease 3. Gastric Bx r/o HPylori Gross Description (test code = [id number]) g0qenVGeNAMifRNUVRT1WZ KdFL9foDhcyRx9fGedUHQa roN1kGAzAWhsb1yjSMY7r4 suxtJMCfhuWWTjTH1rSNvp QDEuLP1cKkXkSDUsUwHfRR BhcGVydzEyMjQwXHBhcGVy cMK8OPAkMM3wunfcBUhhQK erMCKgrtO7JUQxnTNxY7Hl NTJdGG3gosohHIO3LNYHEz cuVn6ayEXifFyvWeMxAuXu YXJzZXQwXGZuaWwgQXJpYW n4bX8XUhguPHZ6VNRGPyvm OlccgWqhv0OcxVKkFCPrFO xcaWQgNTEwMDAgXFxkYiBP XlIlGpV6Puf4VRL1EbW7IM a4SSWFHSWbRvkjICU0UqW8 ZHc3CYKsEF9jRLfavZLhCX ygHjzxIXewQ959VOiaSWXz U4SmT9DvOAjoRwVvAIpfMK MfUULlRRtyECLaQ7NGPIKl IJV1FqIsHJPsYGz6LEhxA4 HTRHQdFEApYaQ9IYLeTzR7 LRz0HLAENp1jVVgrVjWcSY d0ONI0EJo8RiFaLAAbRkYk LPNqPYJhTOlcyLXuBW1wfJ mfRNOcIU6LQVVfNPjqOBKd NfSpZ2DOW4iODZ2oJOkgpH JjaFxmczIyXHBhciANClxw DLMhQT8RXRNyZLftONy6we IwAJZvJyQlHAPmF59jp6GD i0UuPH3AFYu2lpVrqkaggF 6xLKTawhDgLBpGaNNarU8d tiJMHLxyZPVlB9OkcySyYU qdGSOucy0blRabSNdwQrGi bGVkIHdpdGggdGhlIHBhdG coykBhN2M3kmQsVM2lMDAT MAMyaF1iPXZdLZFxp9VbyF VsyBtrS9QprQIjUlNlj0o9 aBL5UMZycqGcRDHfrJNgQO Ksnd3iSUjwVvYsO7R6ICBw BOPne39pkQQ0ihYqMlFnbF m8uDGzHKR3MN4bbXntouOl z5y2vY8sLTNdd4X6IVFoq5 P2OGXsjiIlfOXycYWwZXJa IY2itlDaQS65NGEjAEgiJJ svTSW4HTH2VLWauSGhg5zv fcckDw1mQToqFB9oXScyYW 44TBWcQQahYFBsQ9GuL8I0 SFwiWPOqXIMgsYFpaW6xnb NlonCtdQd2YYDwANG4bDTg nFugDIRbIltztKQ2CYQuWt KvsdDvt4StlFe5hTOyKMjh CLDxlN2ibS2aBVEoOKBzgn SBKfluQLLjPWnhb9WcVLej cGljWHNhMzAgDQpcZXBpY0 5zg1JJb9Sbs2eraTnol4Yn oGOhWE0zsPPgVK5Rt5obKF HmxSPuVQF8GZoaa3hgPAdz PAQ5RKFgWcJbQPRiHE0KMv QoSTwqSVz6JDsyYDp5BKy7 SM0DPbEbIZUgGoy2MiH9Uh VjXIl4KOucLK5CYTK0XBAn CEWaZAlnSBT2HLPzFDq5AT IgXFxzcyAzIFxcZmwgXFxu P39rxNVhYYpgOmJaJHpxzK ugZNTgPIM7RB6OGNOzDiHe I5GMZ4dYIB7vDadshxWqZI GouuXRZyhbWILfKD9EKJUe WIeoQOs1gtUuOZJwUmBzYP VlH58sx5CXh8HlDM9QUNs5 tmMtqvljsK1uVIRpvbMqh3 IzMFxlcGljWHNiMzAgDQpT dDIkhO3cumDLODlfNDNsZ9 UpavXoTUjmSUGekf7xkSei IGxhYmVsbGVkIHdpdGggdG cmIYXdnFrekfRxO1M4giKr PR2bDJGIDAOjtU8xHIEaMP KlDUTpBKPkbY3jXAX7e7Ng hsOxKIJRUICymFnhPM42cJ BjZWxpYWMgZGlzZWFzZSBh abOcdiGcx42stxWex9ClRK 6ffJfwIFcDRBhqFoBxFH8b VMVknvFzp0GdWG4jMOFpfF TwMZHcvozfbJHaHIs9fZIb UORkDnBgyNgqc3ZnPQDtWR njMX56gbAmRW1pNYvaWB4e DOehOT1bSYFyMVYiRBZtOz CjnODiJuIpgMIgWxEnX41r KnZAgEUws8CqL8eoUR6liF FsNlkbfEWeYPDhnUbde3Ov eUCeKNApn3WgbZUjWHhgER 1hISX3Dn5tzISmXVWdrvG8 y4IwBAexPYWxAlsbVMIdLC nwi1WaJQAboMFWu9RbEL9G XHBhciANClxzYTMwXGVwaW BDn6DnCEGZQzvryChpEmBq dWAtBfI9KSCmjUZxKRP0IG 6eiKgjWZDqROp6QRffINDc N8YoW5YzCBvtCoQrFGsyGM HyPCEwEBsbTQPgQ4QLLAIf JNV0CqKuWYJvHLw0DSlvF6 ZGDYKgODAjHuS2KRB1WmR0 HPh4GQLBKc5vDEifQpMcYQ DkCzR0WBt8SbQyTSUnXeCm QLDvVFIbHDnieZRuFK1tjC ryHBPmQLJbXQA2PMRfbZZX i0AyZGIpTPedQuPmIWDJRB QFDF8YLnMKDUXsTyOgoVSv KV1JBGImufWuVJxzvObgiR 4cbXGhP2idRiFyIbnmyFgq TmVzdERvYzEgDQpcbHRycG FyXGxpbjBccmluMFxzYjMw BLBlwRBAs1TfCPAURcHbCE NpbWVuIEMgaXMgcmVjZWl2 OZMlmH4qMo2mhGZaiJ5pqM IjVYibXCJzc5k1oXC0aJVc jNQ5eTBbqXxkOvLyZB0lvI XnHNRAVQ97yCLljnPpXANb kU5zPFFpJQSpTWI4pkxqDT MLXSK1lTQvi6P2EShfIHT1 mC6zyGtdJoJcI1O9RRJjLM Bvy89czRX1bsTvDjJxYVTh ua8xrT4jIAgcknXnlZcxcq Drp9C5QGBvb9F2JMKvvmOm zJJlqPEvLPMgFsR9IOObDq N9DKXbKOQxlEUoWYZcCA7b VGhlIHNwZWNpbWVuIGlzIG QvqHJpkcBhSIDekb32N5rw ONDfpF5vk2udElKyHSHpYH RfgCPaxVC2UYMzfI9jfB79 buVejkJIEP9myUHmBE3ITS NiMFxlcGljWHNiMCANClxw HTZeAMtri5SbUIzqvDkhLZ GzQgGsHSzTpGkqUZKTV4qv qJXvMPjcUKLCKXxEH5MOZH 5LXWRrxEHMLFP9YE9sRQyb VGGgW5EgR6KssmW6p1wqfA qkt7YyjLRdXD3axTCvTH7K XHBhcmQgDQp9 Disclaimer (test code = [id number]) f1gdzBExJPYsn6abDUJuvT FuZzEwMzNcZnRuYmpcdWMx EIczzqDhRTayh9XgT8BwXe AwMFxhbnNpXGRlZmxhbmcx IDSpLDI4sfBwCNYeSEshAF NqXRknUt7xqSUofYsuGeIv QSSdw4haigDSZEjpWsRqB8 00ZSIkNObic3jds0CgUANm qLIqp8P2GYVUgfbpnRk1xI ehU78lw3J7RmxeV5ihVBPc JVUfM6McGP2sXLCkUud0FC K4SSE2SAKuUKRvU1NcMH3b UTMpcATwHFf2g9rwmHkrEK WaNZH3q6hqTHqheoCtNK4c kt8pbVx0a8oijaSmVVUpVE YigJCSEHMmP4NiqQdyVd2x sLd8lZlvBlcxPWS2Qkf3RL 8rez77enp3iQjzCMUsfpkf YaT4DBwkBGYkfngwXNl4SI nkILEvaGB3SIEbtEYaZ9Aq JGErAI0hfro4KIF1RVcaSP GfVuL2RSMuvYHbGIJdzDpw LQygx356EKP8QfZjIY1cE1 Feh6V5jA4lvOZvZFUuzWPn BtIyRLWxfa7qqYVfIZiwk0 HtFKQ4noC4qZIsiPPwUVEp EA26Dkjto5VgHzhdb7CpH5 7lsKC9ONeyo7zhLS8jJeM1 oyCzRGflu0myqI0tXrU9YS jeUI5sRR5aDCWycT8jfhlr XHBnYnJkcmhlYWRccGdicm MxXr8lgSgyAYO0RKfbN4iv bC3fJfF1PRrhG5vbtQ3jLR k4BUaktUP8DQHmiA0oIT4m dkanb7bdFSseJAhmSMOoow U6ewA0BMJjgXVtR9RmtO1x XRGkAF7qdrvep1tiOFW3EB caGAZtKAG3UzAxJZPhn1Qu cgd9NuMqp9LfqMSgNAxuN3 9ox980QYJholRlR2nblLNv tmefwJQtmkuvAHsitvX5DG OxsxHcy1SlLXKxWIA6XLei XLeyfPOsDVQfkGkpr1oxY2 RscGFyXHBsYWluXGYxXGZz MjBcbGFuZzEwMzNcaGljaF rrIVzxFeXyPUMyUDkqD1pp XcGxS6CtETMxUhWtdBVqF8 ggVGhpcyByZXBvcnQgbWF5 UOnkQ7d8GETjthQbwCs7bg TnIdOiWQMjQBK1XMzraJIa EASvf6HusssvcDVtVu9pgH GaSWVidJ0mQQZxWUHxKQtz HV3gsLe1OAZBoBMfnAMrQs HKKXUvDY33kkFvRCYYmbxr y7Q0XDlfNOIxh5OqaDDeI4 lfm9InZNLyx26yVK9sd2Z5 f8fuLZL7EQ7ww5OxBAOazZ UvlLJlNLNhm9Ehfmogk2Wl ORXknoMvc9NwXICxxxRthP GpLPJkuaYphc3wrkUoBKFh XUQlU9OnlnyqkOodwgQbAA Wlqf4cblAdKIN9FBEJEHHr PIBfq3DwoW7epKNGTCS1jN Osne2trjCGjJPmAPHcdv12 IMUuKJ6rV1muMOQhLFMjxb UcxWVpl2WdGXSmdQI7jIIj XP4NWoHLw57pXGXoKIMGwi JzUNAvtSzdlLF9uqH8vT6p IChGREEpLlx+IFRoZSBGRE FvIF7fluHly8MnexDmbVkn BMCrjTEfm8FliQJwy7QvyG vvk0BkvNFdfALtSR0cRFSh clxwYXIgVVRNQiBMYWJvcm R4c2NpHSXnIBSuVXK0eHye hqt5DADcaZ5cPFIaD5sxft ubOYzvGHCnb5MvzL2huSFV iLRax4LxkHVuyUEGwZRgDL 4fdySeMRjJRIjUNGU6lfGh QZQzt8OcQCwkI5enS93dkW fmtGq7uTO4SBR1cK3nUaa+ IFxwYXJccGFyIEFwcHJvcH OgHGMvqJokvlGvI4IbdsCa oF9ecROwicWbSG4bQE1pA5 J4hDGzZPDxihZim8znVVuh dmUgYmVlbiByZXZpZXdlZC Kos8JvMRcnDFZ5XOaigxVn bmNsdWRpbmcgSCZFLCBTcG KhwZSdNWO0KGlnmcNyjiUs CH2kdC4ctSgjeG6hqFUawW Z9vvzxRBHtHBEjtXifVBSs RX9bxRksuN6xMwQoZiDzCQ jiBR5zGBGiQ9pbsXMjNTMi YNDmK8svAdPmhI6xfGkfAA xjZjJcZnMyMFxwYXJccGFy XHBsYWluXGYxXGZzMjBcbG FuZzEwMzNcaGljaFxmMVxk WeLjTZGsNIvnD4xeQhEkG5 PkNZYfCbEvjPBoT0siTXfd JBT0JSRoFC4ndPGlQU16cR Sel2cpJBljdIamua4eD38w sHLaPJezkEomHLXql55bb7 HlPGOkvcKown7tOEQzbkR9 mN8jBICloGbnTXFkpKEjBC Jzy9LqEVakaYSqhpBgWWcy GYGrEIZutRWaidL6xpLpqj JhkzWmDTLodFdmMLDdb0Lg IESmDAsvz7Thie8ywAEqWU YsiyXVkRlctKLacQ7wY0Rh LCTcEWVzuc1jFGVgjC9yIU vwu8AptvdrFNSbTEBbETVx brLfar6hFKSaiRXWBA7MMB dwmZPef5NctxZvD2tWPMF3 NUQwNjYwMjgxKSBleGNlcH DkJZHkpp86TUFzcP7zoLch QOSzzH9yvQ4fpSyenW0oLy AuBeMfPNjcZL2fYLHeU1og fRUmLCKzINCtX8pmGpTmdI 9jaFxmMVxjZjJcZnMyMFxw YXJ9fQ== Embedded Images (test code = [id number]) [facility] [id number] 19:23:05* Test Item Value Reference Range Interpretation Comme nts Case Report (test code = [id number]) Surgical Pathology ?Case: [id number] ? Authorizing Provider: ?Dominic Keita MD ? [...] HPylori ? Final Diagnosis (test code = [id number]) a4urqLXaVIXqy2ukYSBumZ FuZzEwMzNcZnRuYmpcdWMx YHrjyeBsGUdmxGvdDJE6SW QoNN8myFcdxQy5tEarBCIu yoA8zTBrDMddu7tsSGA3w6 kkahsyEHBsBDdrWw4hyUWb qHfjDhBnOCIwKLl0dU93XW FbuH9wfGPjKAh9VUSvcUWk ghNfCaIaPVZzhNFuhFI2RD ThLL0cxwatGHkhPQtjDIXh fpX9FMBroXPlQ8OrKZYdFE 9lupguMOA3NDifPCWyEKK1 PuHzIZZmr3Jzboq4SbEuvV FyZFxwbGFpblxmczIwXHBh gpNAJsKRHX5EYORFJFCOF6 iEVHXLMK2CMMCYSimomMLo UCXqXCVkZFFGRK8AXFGgW5 lHXmMbIO2HKHSaGPHbtCJa DEJoqlLCUcRNWC8NKW4ULX wgQklPUFNZOlxwYXIgICAg NFZgDTbEK1VAINBkQSXPR7 IXHEmFPJojYh6cYNFSNF1E Z5sDA2BTYSBPNV7THCchDF GeDWHqUDBfEZ6WIWxlPQPZ PF6HZWRIDQSTACfYKGDTVD OZGRrXUNREY1YDJNpHGGIc btrkEKSeHn1jN8YDAMVZJN wgQklPUFNZOlxwYXIgICAg HXWiZTKJQ5QKKdXDHC7HH3 4CRLPXIUTZXF5YNWHWFAuY ST6YAHNMVFTIUTVDD7GewI FyICAgICAgLSBOTyBFVklE YI3VKFZAQpUAZNdAQJZwZN lTRUFTRVxwYXIgICAgICAt VB0LTNcdWSYOZC6GYGTAWu dBTklTTVMgSURFTlRJRklF ALVTFGDROJ1RPl1ABCAODq xwYXJccGFyfXtccnRmMVxz y7UcZ2GkWqFpPBgqakSzRO JmPhwqclapONUjXWG0woIy ANJsQWwhBBLgQDpkUz0aqI PjhYloSyDyRSSyp6vbdzOY BMnlQfPiY281JROnUFbll2 ity3LaSEExfTTjl8L2HYWD thhrkQe6s3ntDtEmZqX0oN SqWXdtO9fnjpVpnMKkK6Pl nXPsfEt5nKzuG21vb1P1Br maZ9xfGWKpDOXuK6QzMB8g ZSCzUor2VKJ4DIH6SQLrHV IpK6RhUZ6pNOFrkOQeUTj9 d4eysLbdBYIpIRA7o5ijMU iqoiL2OL8mps9ejEf6a3jz czEgRGVmYXVsdCBQYXJhZ3 IyoNubRs3fjHm4pBwlYrrb UUY4Gvo2OB8lcn62mah1tX ozZHRcwujjTyX2MJofHOOq jptkMMn5IIfcNTTjaJI6MS TuhDPjG3FqDILqXG0ztba9 RBT7JWhmOBYvXkS5ACAtaP FtALRocGyhKYukz255RVE5 HkIxEJ2xW9Nph4Y4iL2gyX MmIDGnwALjJdQtAPTegk5e qSDwCOosz2WpJAJ6roL0wY AxpPAxHPUzFW00Wpbpz1Fz VbibRKU0JNMgalUmp0Zbb8 cxKpRlchYiV7tiN5XqIXOg LWFbABKkMbSockUdf6Xwx1 ZenRLzfUu8x8uaNIYhAXLg xXnkz8lkDLU7GNUoT7C6iW Ood7ikVIygERDfwIF6wfR7 LDEfzZPmR3XfgJ2vCIEwKI 4jddy7y7xhRVK2JYqvVMGv EnW4ytR0KUOnwXJlXXGthH kzBPhew458RND3RuOeKXFm k8VsX9DosSjsV75obZngV0 7lTCKslVpyhM2gmCoqtV0j ZjBcZnMyNFxxbFxwbGFpbl xmMVxmczIwXGxhbmcxMDMz KIvmW1siMcQpNIOgyIqwCW dbf1FdXNAwGHKgEuffqbHd XHBhciBJIGhhdmUgcGVyc2 9uYWxseSByZXZpZXdlZCBh jSxxa0IzG0tsLE8iV5PirJ ShljQffqJgXElnGWErs7i4 vSPaeThqw2TllZDdYV04mf EsCHJjGKB6SIYpk8kaBM09 tlvnSzRevX40sqRxilYiDV Tdc7eiE4qvzJJsc9Zpf8Zc ayApXLvdl5EyQS7hhKPrlf xhtDG6NQPsnRTfrxUnycO6 zSfuIENolO8ujK8viAfufZ 3pYiVlRyFfXFzpJN6nLADh J3htxSCjZHEjUTZaK3rqLk LcgT5unZxdYndaftW7VTKj cn19 Clinical Information (test code = [id number]) Shivani Schuler is a 47 year old female with IDA1. Gastric polyp x 6 r/o adenoma2.Duodenal Bx, r/o Celiac disease 3. Gastric Bx r/o HPylori Gross Description (test code = [id number]) m5wdjPDwGSOlsMFFLXM4SK LkRJ5saDuelGq0kXytTQNd ujM3vVEyFBjpn2tdFKR4k0 gbfwJSRsvrJKMrOF2dNKpz XYJkOJ8mJgRzOYPzBlXwKS BhcGVydzEyMjQwXHBhcGVy jUK2AZJwRF8noqjbBEthJW ylGVTslxP8LJZwpMFnP0Jh JFDfLN5bvsnbAKQ9CLPWWd feLk3poDXkqZbeBzSsKsFi YXJzZXQwXGZuaWwgQXJpYW e7zZ5ZXzfxWZM8GBLVNxty QilhfSxsl5SgaRZrKKVpYP xcaWQgNTEwMDAgXFxkYiBP FyPqNtY1Idw3FQR7RdS6JK o9GZEPXIDsBpavHFN5SlR4 THb2IVFnFK0bPLfsiJDoXO ypXgxeFFinI368EDxuNQTv S4WfH7NnPHpaYkZtLObmEK MnVORaRPkxGQZlW0AJBYEy RUD3RpAlDPQcMPk8KOrnD5 AGLCJdOYVlBiL3GLBfTbZ0 SMe3JNTVDa6iDUlcUwEtHC j9UFI7QFy3OyUwGUIgGmJy NKReQEAuZRsdkIFfEE6bcP fzGBMlWL8IUQJbHGgeCAPu IrOdI2MDF4oOPA4lVHzexX JjaFxmczIyXHBhciANClxw BQPrCM4GNELxLFdvHPy0ru FzNNLeJxNdHUAdV97lb2QD o9KtBZ7QKGi7ugJveoffiF 8mYOTmwmKoAUmZvPHjpL8o uuCVDTfsGYCrN7SjvyFaSK awEIOusy4waSyxEQukInTb bGVkIHdpdGggdGhlIHBhdG nlvrAfL0T2hkDuPV1sBNXK PAEeiL3cBDXrAIYkv8WjxS EhgDstC8YjvGRyXrMyq6m1 hOU0UJRzruAtCMEgoNNjNM Pxst3aNMegTuLcM8G5AAVb SMSxk50seSO0xfDfJiIzbA h0lFXsOQI5VW0fsKzyokUt b4y2pF6cSWEtc7D2LHPpy6 Q9IDWpsnKhkGWdoZXtXCDm PS8bqdGnYV22SJOmMHmmBA drFNL6LMN8RARvmGEps2kr jnpuFl3aGYouFK5kVNqtCM 37FKKmUTzaJCPiC8BmG2I5 QKynJQJsHIRquQKwuW1eiq CjwdFyyPc0AMWaTIC3rFGt cNtwGBCzEcsynBM8PRPoPt RjdlRms9NrcJx1jEWdGNzc BNIgrS6kkK4bRBGcIYBdye KYJrjrAOEcXUliy2JuZJnq cGljWHNhMzAgDQpcZXBpY0 6ip8VGc0Xaw8dxyFuuu9Pf tRRwPF2vdDStBG1Ik9jiQE GheYShGFH6FOion5awPAhp FVF7ZXAuMaVwIGUjBE0XAw DfZTqnGQh7TQgyCLi4TBn1 TK0SBnHtIPJxHxm4JpE1Gt KuFIg3BIqvVB0SOTA0VAIj TVRpDEaxKZX9UNAcXNm1TO IgXFxzcyAzIFxcZmwgXFxu D12lpPEfOZqdBnZoLNprjW snMBVpUNM7ZO0YIGGrFzCk Y7AVD6lZEF0nRueurvApTC PpqxUQMffiQJFhIM5PKUOi MWfxTFq8tzZdHZMjEnUdQC MyB73km4OEq6CsLS9RVFh3 afSphnwazS7zPKTebmUeb1 IzMFxlcGljWHNiMzAgDQpT hWChpS4hhlMQJQssPTBcB8 OlmqBoWWadKFDstq8quAxd IGxhYmVsbGVkIHdpdGggdG opZNEpiNibudFbP5E2imOb XE1fXQKPLUUppS3uWGSjAD TwXQIjXTNeuB1eBCM9p4Kc gqGcWFRIHKNiuLfzHL39iK BjZWxpYWMgZGlzZWFzZSBh tpCuhsEij36rfxBqt8DsQW 0zmGsuHFnFTLxnXlSiRL5e SPGcdrXcf2YrQM1sZLMpwN JpCTXsywpyoMWlYZh2dNRl HKKrAzLgxDuxe3OjHTDuMG ysJI68muZsYP9bUGkqHN7n OQvoRK2yBHHxXUZtISHgEe EmkAAjFpMdzKDxJsHlY33i OrKUoPHmr7WbV1hpMS3boO PgXzhspMCiOMBtfFukz8Ds vJMmXDBuj2ClkDUcUEdpMH 7nNXI5Bh6fsDYjKVQtlrY6 u1BtEBfySZCaYayxGKGiEB gxv3WtXVQwlFIYf3ZgOT6Q XHBhciANClxzYTMwXGVwaW USi2CjJHCCHpxfkEbuYwQv rZRqZxV9DZWgsFHrXBR0KT 1fqQaiDSFwNEn4NHqvWLIc Q1XlV6FeQPgjNlDxYVgqOD RaPSEgYQzxZDUmB1HHNDJc KJA9AqGmAILtCEa7XOtjP7 VINNSeORXsEvH7GBE4FgG3 QYf1VJMAKb6rDMohVuYzFK UfCuA3MRy7XjJaTDWkTvEs GDQdENByDOlzlRMxHV6yzA dsBWAjNYQxJSM1LFJvfCWB s5YeANVyBWarAbNbRAWAAY OXKS3YUxKFJVKtYbHloDLd WW9VBSXwogWwZOnftBhhhW 1gxAAcX2myFhCyRpbkbKqj TmVzdERvYzEgDQpcbHRycG FyXGxpbjBccmluMFxzYjMw OZXneWPEs4PwOYQIDlHkUJ NpbWVuIEMgaXMgcmVjZWl2 NCQfuL4kUe7vaWJmgB2adM JhHWsnLFTza6j1dKN0xVNd iWJ3wZBmwMrpSvZnML2htI TrANUWVO28eMMkrjGfQTDj zT7yFCAmDIEmLMC8buvbJS CNUZY1nPSjq3X8HXvhHFY2 mW8bpFpzJkEdT9J3PHCgTY Etg53uyCR6giTpYvCvYFJw uk6pqI9vJGimiaYakLkelm Wts7Z9CSSjy7D8GKGpueRs dAVzhFOwENXeRoV9HNUeVm U7WYZmPMDcyJJmVHToOK5v VGhlIHNwZWNpbWVuIGlzIG SvjGElnuZeLQUysv96S0qk HVVgpR0ud9zuBpBlNPFmAR QrdQXykGL2VNAqbZ2edN47 yqJoadOPKV5owVWxIM6UAQ NiMFxlcGljWHNiMCANClxw JGNuWNhhp5EtPDvqmWugRA ZyYqRvIOmQdIgfMWKGZ6kr cMMsIRpyZBCARRlUL5NBVY 1WYWAxcCKCZIR5DP4aUPov XTKdY2WcC9VfcqE6z7botK eco7CcsOAsKQ7vsDGmQF1G XHBhcmQgDQp9 Disclaimer (test code = [id number]) o4oeuXXoJATuy5cdLVOitO FuZzEwMzNcZnRuYmpcdWMx NJapqiYxWBnit6BkS8YhLe AwMFxhbnNpXGRlZmxhbmcx PSJfIXB8fvTgNECgMPgpYY NhSUyxJq1hbCBkfVfgKjEd RNYnf5qtktJEWNcmGaZwB6 01QGCpRYspq2zav7CnHKKb cQEic1Y5ZJQBdxcsnNs8kB pjR87gr0M3IkedQ1pqPVCm NMDwL0XaQD2cAQCkSsw1BP B4RVY6SVNfQLRgS2IcFN5u VGWlcJHaEXe3y5cavRgsYY FwNAY3h3uzIZopcmFdWN9w tr6cbCr9a8mnldNaLRAgRX FjtGBBTWDuM9DqtMrcYv1b dZr8wZsiFpouUUU5Qyq0IB 9rlb31ovu4pZlfWKCgjmhz GfE1BWaaEWFrzqnnEPn7BP hmIOZrlTU9QWVxuEPeH4Sw NBKfTO0shfy2SUR3OMpuLC YdFsJ6USLjqKRvLLCiyXqc CHwjf038XVW5RoAvJZ2fE9 Bfd6B1lF8khWMiSCKuzIGa PmBkXLUtqe4vvFGuOEshd1 XnIOO4djH4pBGsoCObZWBt GW15Ezqgw6LyMnveb1KbZ7 7xxYC8NNinv1liJU2jHgI6 twMsWIwyz9vzyU6cMoJ5AU jkWM0jYE2mOXClcC3fhrjg XHBnYnJkcmhlYWRccGdicm AlGd6ahCymPDD4XXuzG3jo fU3jBsM3NLmrD1uxmL4tEQ u1REkbjNE0RXXqkR3cDQ2s papyo7vwLNryHBamJQSyhf W4wiV0MYKlvAOaY6NeqI6o SVDfLP3hnkzcf6jhAWQ4GP bdAYKtLGZ7IkMrPAUcs9Sg riu6PtBtw0YvgCAsOQzcV4 0pr659OCQcyeYlD5uzjBRd uhgvwLOfjanbIDayuoG4IB BsaoXqn3ClOVErJCI4LDxg ZBrdpEQcFIQggAlth8qeP7 RscGFyXHBsYWluXGYxXGZz MjBcbGFuZzEwMzNcaGljaF abWFemAaIkMNZqIZiuH3rt RdAcD7VrQKBrEnVpgKNdD4 ggVGhpcyByZXBvcnQgbWF5 LHyoL8d5XIZfkfYhiWu6hr YsBtIfCWSuWIX3RSudvFNf MMJrp3QmoavjjBOrZd4rqK YdNREaqZ5fJLYkUQZwZWqb XK5ujAk3ORNKaESeoPDvCw IUDJPrRM27xcCiQSFOanpp x2R5BOifBCDib0EbrGPnD6 bxf5TjDVJad66vAY6qv9Q3 w5hqYMW3LP5ze3EjSBJpsX RnjMBxHGVlx9Oderfrs5Ji YRJsvdIdr5FqFCXggqFojW YqQSGqmhThqf3ooqQhWAEr ARJxJ1AprzznaQadobFfGB Cryr2vyeKdPNM7CDIBRTWv JKPgx4HzlI7zcRWLEAU3pQ Rwad4denBAdIDzKZEtec16 GVTyBR8dX8mlVCSwBGVmtk OfaNMal7OpROWdoME1pVXp HN7UTdAFk19lJEXsTCMIyk MbXWXjiZmjwAT4lkF1kA2v IChGREEpLlx+IFRoZSBGRE UvZB0psnImf7KmapIalRwf ZQMnyCTcb6CmtASgp3JhwK oau5OdrZQcjTWgXQ4zZXNc clxwYXIgVVRNQiBMYWJvcm V4f4MqDSMaKLLiNLG7hGon bka0IFFzwJ2bTWPkR5gxzm gvXLjsEYIoo8VgdC5ajQPT iDUxu0VddIEhoCHZtQXsGW 7srdBpWTpLLIdNOMT3vdJp FZKhd3NnINoiN8phE53chX giyUi4gJH0MQC0yH0gNsh+ IFxwYXJccGFyIEFwcHJvcH SmEGLhcPwmycMjR9LbhvSp tJ3rmMGperAoLQ8xEW7jI0 V8cADfJFHjkgMgg7ylDKfw dmUgYmVlbiByZXZpZXdlZC Zzg5QtAGfoQWJ5OXwcteMc bmNsdWRpbmcgSCZFLCBTcG NqwFIpZYQ3JDbrokXfqpNq RH4auR5wvJjitB3trIAclD D4mzzfWMLwTIXunPpoRUFy GH9dpAquuA7nTwSsRrOyEI vvPT8xIYBhT8wtoVFoDFDp VWKwX5xzUjVziN0rfLnwDQ xjZjJcZnMyMFxwYXJccGFy XHBsYWluXGYxXGZzMjBcbG FuZzEwMzNcaGljaFxmMVxk BuAnWTUdWIalT0qfZaSrC5 HqNMDyLlXulNRtO5sxAAvk TGQ9YXSiRY6nrJUoJR05xH Dla6jcZJrpkRnwtl5hJ31y jNFiCQuqrZprXWJib39be3 XoJWHflhVera3eFGSihzJ1 bT5kWYQmrQgmJYSemXGwYT Lnn5DxVAnfwRYbfnZwNDyi ABRjELAdqVVjvrE0hnRptq JipgSeFOLqmPszBAWio8Kn TYUqTNeak0Uyxd8wmCHgXI VfrhOVcCvzaDVokH6tM4Tc BOInPFUmmk8lERCfgW0eNH nsj0SwvpabXUZtBZPePLLc jvFkeh6bNXErfIOTCT9BZI tetYWrk1UiuySrN7zXWGW6 NUQwNjYwMjgxKSBleGNlcH OuLQGjty97EBHkrT8geUon FARwzX1toX1pnUurzQ4sSk IkIuEvXKzgGV0rASZbM6el fLSpOLAbBPSdU2lxQrIwiM 9jaFxmMVxjZjJcZnMyMFxw YXJ9fQ== Embedded Images (test code = [id number]) [id number] 19:23:05* Test Item Value Reference Range Interpretation Comme nts Case Report (test code = [id number]) Surgical Pathology ?Case: [id number] ? Authorizing Provider: ?Dominic Keita MD ? [...] HPylori ? Final Diagnosis (test code = [id number]) x2grvRQnTMAto5lhOUXzmR FuZzEwMzNcZnRuYmpcdWMx LOpelkRbJSguoQvlYQY2PN NmOB9lxGfjrNe1hFjoTOKm qbY0sVIrORvvq9nkHZS9o2 tewfnqHGEmNBvgLu6hmQAf zTbsVeDwLANvGQe3cM50WK QxlY1yvXZzWOk4JECrpNIp cgPyDvTeKZKwsYNfrUD6GO LfYC7wdxznYOyhSEfsXSCw bbO5FHStxGVoK4NuJHMyOF 1iulstKGS4ELwcMJWmXLV7 QjBhAPGdy2Kqdib6XbGhsD FyZFxwbGFpblxmczIwXHBh grUVSrUTGA7GGSYBEDYDD3 oJNVXPYA3OXLMNKkqicLEo VHOmVBSfXDMBQZ9CDNIzN7 qJWrCuXE4GTFSvQMClsPHi MYLgirSMHfAHKC4BMX9CHT wgQklPUFNZOlxwYXIgICAg CZUgWArCS4BQYIEqLXJXN6 HISNzVNBrcOl1eJQFADE0X I6lHD6BBPNFZYX0PFHmjXT QySAHlATKcIP5SANtrRUME PA1XJFCGXVVPXHhEKBATEI WBOPwLDEIKT8RJYFtQTIGr fuujLXUlKy4fK3KIWNOMRJ wgQklPUFNZOlxwYXIgICAg UZMvKGCFE4LWAvBROF0HV3 6XCVNDYBHBFM0NRFODWSdH LD3PLHNLODDOCCKVQ9IkeR FyICAgICAgLSBOTyBFVklE AR6BLTXPOsSASAoCLNLrUD lTRUFTRVxwYXIgICAgICAt BW4QDBmmCCYUGE2XSVIFGr dBTklTTVMgSURFTlRJRklF ATDRBTZDFM3AFr2PPEBWOp xwYXJccGFyfXtccnRmMVxz x2UzF5XyBrKkWJmxabNiMI WzBkhezhqlFFKlSTH5zcFc JNOoAZwxFKEsBXpsNw9lqI GueQznUfOvIGSdq3sjlzXR ETnoYuHmO114XIKgOIczl4 cez4TbLIBfgYNak5L2LBUV wtkzzLq5u6jjQaEaViL5sO YrLOktA3laowFwxKKvK4Rn gXRjjMa3gFxxT12by9R8Ky piS7gmIBVdVTUlD3GaBV4w XHRiJks2NWG5KUJ6VXWxUW MsI0YbFK3sFLWlqQIyFYi7 u2drbNqjMECsVLV3h1oaMO mnrbU8UX3tqy5wiSa3u8hf czEgRGVmYXVsdCBQYXJhZ3 GgeBzcCm1syJr5bWbmCyyr UJR1Bnv0DJ9fpf70evg0gF apFXPfafklNfH7YPlpCRVo iskpXYp4SSdlEHQcwHL5VI YdtOZiJ4EdQQAmCW1zidt6 KUG7DXckBZJjZmV5TYDizL AzTYQzgNjdJCrvo747MXZ3 SbUiRN8fS9Hpg0L8lM7jdC NdQYSnqMOtTrXaKMLmsy9u qJYbYVisu0KoDXY1ltA4tZ EcjKIxTEJuUH66Fmrmb9Wi YxibXYF2RYPkgtMek7Vja2 cgLzMsxoBfZ8ryP2TnBFRo TNQpXBPeArGudfXip6Lhi9 JxaGWysYl0p8piYTDaUTXe uYdwz1zqQXU3STPiJ5N6dK Ugg1pbYWgsNBNssNO0baK9 QQEskWCdK5SqtC6vXDEhUB 9veac7c9rmXMY2ENgxCMYo EfS2ovR8HKAbaVRyVQZmmJ enQTewx578LBS4GfZuXQUh m8KqM8UepLzoZ35bvJlkF1 6bVJLxkGiswL6isLwlmK5n ZjBcZnMyNFxxbFxwbGFpbl xmMVxmczIwXGxhbmcxMDMz AJvrL0ujWtRaDHQfmBqlEP khg8XxRJOqLVLqNwmknqGi XHBhciBJIGhhdmUgcGVyc2 9uYWxseSByZXZpZXdlZCBh sDrxn5ZqJ4hnTU7hI6HlmF DhbtBxkcKhSSaqCLEoc7i7 nHUtyRuwu6KmkXUqAY82nm NnELUqTLB0HUNas6zsFH76 lzhrXnWehS71kmZketMmIC Mxl2coU2egrJGjh6Nsd1Uu abYqXMgpv3YaCA1zqROqxk isgQM1CIXzxBOxhdGzydA0 gUmfKGVhiH6njN6bpItwlZ 8aSuWrCbPoMDbzRB5tLYDg X7jubHKxIVTgFGPcV6mpPw UnnY2ceMepSafllnQ3YQSn cn19 Clinical Information (test code = [id number]) Shivani Schuler is a 47 year old female with IDA1. Gastric polyp x 6 r/o adenoma2.Duodenal Bx, r/o Celiac disease 3. Gastric Bx r/o HPylori Gross Description (test code = [id number]) p6zavVJeTMWghMFWHAA4OX AaBQ7ueDtipRz4jWehMFTx xrQ8hCNiTFpik8vwYGP5h0 wzpwVJAmwaQTBeYQ8rXJop JSSqMJ1uGkZpMRAvZjRwLY BhcGVydzEyMjQwXHBhcGVy mMV3ZYZrZD1ogpwiMSqrDT dhEUEibuH3GTEyzVHmG2Bw LFEfVR6tqzocKWZ5OCPLYv ciJx6usMAhiFfhQxGoLuUc YXJzZXQwXGZuaWwgQXJpYW r2zS5LMeysBHL4HMPNTdxe RkxonMbti3SakELhDHBtVK xcaWQgNTEwMDAgXFxkYiBP JsTeDqF2Yli2RPQ1CgM0IZ q8JOIZMOVcCjwtEYX7BtY8 NWp8QVXvGT1pWEckgUUiXM xfAkubQZrqE670BVnrQRCy E7FvI3VrSXftHtVyWZgiFR ZxBLDoBQgkPZWvT7GZXEHz UID7DnSwBEAoVWp0HRhuS8 OOGMLsBPAnWsB5IMQsNsM4 VSw7EXBLSn6tECwoAwQjDP u6HMB8JUw6LvMdXPVpSwBe DKOiQKTmOYbxbRUaEV1usO xvSKSdEK0IILKqSIvgECGa BbMxO2XAL2xKJS8oAThoiY JjaFxmczIyXHBhciANClxw ACLeNZ9ZSMWxRDizFCx1fg HaCRPqSsAdWRCuP95hx6LO l5NeQB1GDFw0xqVwpekbyL 6tVLKfryXsOFrZsBXqyE4h igMCVOggBIAbA9LlulXqLC jzISOlgt7ixWypPLliPfLb bGVkIHdpdGggdGhlIHBhdG yzgvOsS8X5gcBgTY7bFODZ VGLiiW6aRVZbPLXwu0SbuD AniQtyJ8HmkOPsTqQjz4z3 yFC6EKJyjfJlIPKipDNgEL Fomk5rDSivEoAmY5Q3GCHi ISTor65ojRM8wsOkVjZmxY d7aCGcDEV4KL9ypDwjrnPi h5p3sU2tBGJhi0A5TNFdc8 R2IBQocfJkxONrpWEyPDXd RE5mutPlRQ14YFWdLSsnHY kaHSK9XYI6FABznRNac9jc btawVf0qDTfxTL1jPIfuFU 78BWNqDLywJHXbR7HsY0P0 SUwgKOZuFYFavJMbbC0sde VjqvCdhUc2SLLpXRS9tNBl aGluIHYvJevfzVS7IIOrXf DczfOzx1MegVh1iSReTMfa HCInaZ1tnK3tSJAeCEBtlu CPHoxlEKAjQBooq7BfNXat cGljWHNhMzAgDQpcZXBpY0 0yr6BTe3Mfb6uepEqyk1Ae zFWxTH9pkGMmBB8Te2qnEK HnaNJaWFT0BNupt5axTSyz JAO2BKIdKkWnNTYbCG4RKs QcVTpdSEu5DFzgTAd6LRt1 DU8EDbVmLQBfHzo6ZcQ8Oq YnXKz4GAtjPU8OGON6DAJx UAElDPraHRD0CQSzKSh7WM IgXFxzcyAzIFxcZmwgXFxu W36wsAHbQUfeGlEtIPblhX zlDJIbFLM2TQ0WCCMaBxAt J7QCK1sQUO1qWzxnhpAiXD DmrnATEkdjXWWaKA4OPANl SLagQRl1elNlBZEeYgFrOW PgP77jn5MGx4PwXE9GVZm7 rfVnwusyqZ7zICOjziNvt5 IzMFxlcGljWHNiMzAgDQpT lOZpqQ6sktXIYFzhIVPrX7 NxnlNqWVkcXWKdkl8yxOwr IGxhYmVsbGVkIHdpdGggdG mvIXTxuUkqtgEuI7F5ghHk IS3nKEYXMCHvbJ3tUWVhHL EaSDCrFNJuxB6rSPN6v8Kl ttBbBVVQZBEexSnoIZ29sS BjZWxpYWMgZGlzZWFzZSBh cbUypsRya13fmuKiw9QpKI 9ezCiqVPzUXOxhNwWlUH1s IFZigwRca7XoKJ4tXKZhgX IlIGAlzhaenIWiIAd8nEPr HCLvZeZbnPcsa6FuTHAlEF maNM39fcDePR6rYGezON4t SLhvEK1fUSIcLETyAJBfDv DyuORvXhWxoKUwRrUuF88g VkYVaXSsx7MnP9cfUU0efI SuYyrahLJkFAIyfCqyk2Og oPHhSUElj3UcvYDwKTueQK 9uMBR2Gv6lrWSjLKKstcJ3 p9LxAJoaBDDgQlcrHKBwED sjj2AvFZYkbOHEp4MeLM2K XHBhciANClxzYTMwXGVwaW AMb0DrVIZWTkamhEpvXzUr aZTtWxO7ZNMadFVwUGX1AZ 3cjYrxBEVaSNk1VQoeLVPn U9QoE8NuGMylQnVjPEviMS HlVHVmXVzxUSXcS8FTBEEr OEL9RjJhMZPrVIv3SRhiQ6 KSBGRhAPFuKjN4PKR6UiE7 ZOa6BCKWHx8pEEdhYdPiRE CnHrT7GCb4OcFqKTXqCoHh PUKjUEVpGCritYWdSO6umU qfJULmQPEnWMQ1GFUrjWVK o1IfUYZtTKwyLjCfFVSTUF NTQV7LVnUTHCOoNeVfjBHz PB0IWXHblaGsSUsgiGfcaF 0rxJPuX5waSfVhJovzaXot TmVzdERvYzEgDQpcbHRycG FyXGxpbjBccmluMFxzYjMw BZDkpDJAl2JeROWRLsJoGV NpbWVuIEMgaXMgcmVjZWl2 TEOibL4nXy6vnYBeyU7adS AuAYoeDSEwf3r2cTR7mNVg hJA2xSGvjJcqBtKsEJ0plD NuHMUQSX72vSKrrqIoYDEb pI3uCTWvSQAeDSC9tpdcWC MRXAZ7aIVgx2Q9DTvxIXI7 xO1fxLlxGoQwR4F2NSTlPS Aal07nnKN7uqBpXyCoJTHp bx7ymL0gSQkzifFudKttca Bzq0A7ZEAhh8U9ODWjwoPt zQHedDMlINAgAnN3DHSnGx Y8ENRdEPSxiIMaXNKjQL6f VGhlIHNwZWNpbWVuIGlzIG GuzWFncxMaNEAyts44S4mt IIQzjD7th6esQcKpQAVrIT FauNRkfEB2XYFmeV6gmN26 paHqadJEKF0nnRPdLD6YTE NiMFxlcGljWHNiMCANClxw FDMkENlfj9NmKTkocKtpMQ HjDuAdMRkOfGjmVLXMM6lk dRLfPYvxRUAGTDaRZ4GEJX 6HZPWktLYPXGF7YR1jSMne GOOkP1EmT3EtupM9s5vpkH udd9JwuRItVQ1cbRPxTH3Q XHBhcmQgDQp9 Disclaimer (test code = [id number]) w5zxjKOaPNYmw5qdBTXyiK FuZzEwMzNcZnRuYmpcdWMx ILeiujCxWKynr4UhH1XyLa AwMFxhbnNpXGRlZmxhbmcx NLLpSLB5jjHhJUGiKZqzGU YnZQjvKm9puHPrcVlpTdOr RHLff1tqdpZYSLjyQrQnM6 34MUQsUWrby6roi8KcIVUc mWNkq8N3KMROdhlgmDv0aF rkB42rx9V5PusmW6yeWZSr YCUqR3NzSK0zDKQpFgf7IP H1FXD9WVDvRKSfZ0VsRA2h RZXjsDSlWMs3k6rkvRdiDN UoEHS2k7evKEwwhvGfWQ1g zi0uaOk5r5nlmrKjYWAeOJ NlwAVHZQJwK4DgaQvkGs6x qGp4wZovAixxXNC5Gnm0IW 9pho99dsj3zXzdDPLjjfpx HkI7XQvrWCTofwlyBOv8GJ cbSZZdkDN9VSXzbSKzW4Lk JLDpGG1prwb5UJL1ZWrvTJ SsOcR2FWIsaCJkEMRqdGls XEzty957NWK6JuOkFD2lQ6 Yba9J3uJ9ysVWvCPUpnDZn WfNdWKKhxb8saBAcBUizk8 KwQJB3wuN9xPWclRVzEOYc BN56Moxdy7YlYxjuh2DfQ9 7yaHF5KRixg9wtEM2sMaD0 yfFbDKjfa6mttZ4yBaC5XY clWQ5zNY5vPIJpjQ4slotm XHBnYnJkcmhlYWRccGdicm UlNj0vsMvhSFQ2CSekX9wl bX3oOvK4AVxoN1ccnC0cJJ k1HHmlxKP5MNElcT9jYS3u fdjcm3hjZHrgYUuoWDHhhn L6oiL6TEQsdBLbH1AtnM3w WUZaEE5axjkhs2qiRKP4NV bwKALjHEN8LoYaCQAbh4Ac qus0TaUgq8BbbYKaLZuuD8 2lg358ZTNesjNnW0atrRXy pkqmvLNyxsxvBPpquqT2MR SotiXbk0MkKPXjEYF1ZJar XJcevHDwOQMfxZjaj7ooE8 RscGFyXHBsYWluXGYxXGZz MjBcbGFuZzEwMzNcaGljaF puHVfbBjIkKGKyBCzqN7zd HvZoF0UlMWLsWhGemGLbU1 ggVGhpcyByZXBvcnQgbWF5 MKwbM1t3WMYwlvTueOc2rg RnXsQjGODhWQI6FOozsAPm ISWjz6WuqlwwyQMgUe7aeQ AhMBUnzG2eDVEeVULgFPtw AO0ovMt8EREOqRCsnPCuXr XFPPWtMG56wjCmXOLRrfse c5Q6WYmpLRFbx3JlgHJbH7 tlu5WiOTZzs29vXN0sy5Z0 p3koGXW9NX2um5TkRCMqqU StgNGqKPYdp2Fzmktkz4Ji RVLnlaJyd6NbQWHmsqLzjO YqHQSgcwToad9zneQmQRFh NMTaR9UvakiddQnvbfNsIU Wruw3iwsHhJHA9JANZPRQd YPPrq4NcoR4epITBUGV7mR Ygis9pgrQMsBPlYXDojq79 QXPoMN3qJ4ewUCImYMYafg IkzTWke8JcLKNerNU8rLKo ST5QLmHTq63wLCMyMCPKdu OaCDAnpSursRC6ajO6sK8z IChGREEpLlx+IFRoZSBGRE ReBH5zueEsg1UdfeTslFnq YMFbxBCmc6LbcTPfd5BqtR yxj3AwjJQqpSTdYV5iEZDb clxwYXIgVVRNQiBMYWJvcm A4o1FrYDKpCMJxMUW8vXgh cvz2WNMfzG6oGUXnF1loip irOOwsKUXft5PufV8qyRPC bBJyu4ZriUKzqGFWzZMmBO 7tudVlTEuRAXtUUKC4ttXu WNJhl5FmNArpC3bhH98xvF dweHn9pFU0OND7oC5oJdz+ IFxwYXJccGFyIEFwcHJvcH IwHXZdbHvrimRwA3CqtrIa zK4mjRAabfTyLX3xDT0eX6 X7dDYvKARogxBgw0xkQGbp dmUgYmVlbiByZXZpZXdlZC Bwo5CdDCzsVLO9BLbjvqCp bmNsdWRpbmcgSCZFLCBTcG KnmTFrROP5BKhmdiZribGl QD6caN8hdDavfG2yfQNooA J2rykzCMPvKRVjnNeaZHJl VY0rwRponG5dYkSuEhIkBB ggMU5rMBVaL1bwdSTsVEPp MROmD6byJnFaoB8tfJojHY xjZjJcZnMyMFxwYXJccGFy XHBsYWluXGYxXGZzMjBcbG FuZzEwMzNcaGljaFxmMVxk VlBzVVZqBIcxN6syGgNwG0 HoEYQoOrGodRBjC1quTClr TQT3GMFlJB0rrQFcYL39tF Sva4epEJyrxOtvzk7yU82w pQQsIExgaCroGGFzu56dm8 DzLPFhfpGnny9qZWDckzA3 qX3fNNBmgDsyBXXdxXCiCQ Wrj1BwIMityFYbgsXnKLow EYKyRGUwwQSogqX8fsVevg XdhbMxDZNzrPgtJUBwn9Kh DUPpIJgsv3Mpvk4syWMgQA CyhuEPwCdbwTTnvJ2cW3Kj NUZkNURdgd7gPYFxlU4lTX vpn4GpuoykBBXePBYiBTQg dgRewo2gDGVjzVFHHT1SAI qakOKiz7NewbIoM6iDFJV1 NUQwNjYwMjgxKSBleGNlcH TrJTVbjv22VSLnlQ5neHlf YQWgqL6mjM0mtRkruE6yOj FtTlHvKYwfKD3jJXEoQ0se hCOsNGBdZAUsE5dhFiIxeJ 9jaFxmMVxjZjJcZnMyMFxw YXJ9fQ== Embedded Images (test code = [id number]) [facility] [id number] 19:23:05* Test Item Value Reference Range Interpretation Comme nts Case Report (test code = [id number]) Surgical Pathology ?Case: [id number] ? Authorizing Provider: ?Dominic Keita MD ? [...] HPylori ? Final Diagnosis (test code = [id number]) o0tgsZGaFIUtt4lbBDVypJ FuZzEwMzNcZnRuYmpcdWMx ZJwkwbKrHWjbwEtxWQJ1AK NhJY7skNegoPv6zBxpPSEt ieD0tHSzFPijt5vmWON0q9 wbtfbuQMFnVQjgJw5yqBTu rFsgKuQbXPMyVRt2aU94QD EybH2imXXsBLu9SROlgELp vaFfXgDvKQNgtPUxeKI1EN MzSN1ifzfoDNiwNCzdSNEj rfR8ANJmmDJqN9DiFANwCC 2eqyhmTSM3KGocKXQbFZT4 PbGkIHJgw1Mulmo7TcNyiQ FyZFxwbGFpblxmczIwXHBh poYSZbTBSR7YUPERTJMKM4 pUIAIYFI9CJXTUWgaexNLe KZKdJMJpFXJXFL0OTOEoG7 nNTmXeZA5ABOTtCPKogNBb JVCdkyPIXrOOUD3HOU1SOS wgQklPUFNZOlxwYXIgICAg IYEhPSgYD0EEXGCtHMXVT8 YYGNdIOUsmWm4wLGPQHT3U T3vBK5CAISQFPU8QJSvvES ChATMkTOFsSV2HBFzyIAVG FI6SRXBBUIYRDLcKCIZIYT UXDGxFKUBUA0ICJJuGLWLa otojETJeWe7qG3RKPGPAJB wgQklPUFNZOlxwYXIgICAg ALVdFUPIJ8YHXdMWGG2ON9 9WXSRUMANKKA0MYOXPDTmD KF3SKESNYYBDVRUUF4RmpX FyICAgICAgLSBOTyBFVklE QM7RPUDQFpDIIHhNXFRrAM lTRUFTRVxwYXIgICAgICAt UT7ABKgbRUVMWN0OWHNKUu dBTklTTVMgSURFTlRJRklF FAYUFGOKIO2AAn0DTDYKMq xwYXJccGFyfXtccnRmMVxz f8KhC8OsKdYqJFtuddObTO KmNghzvnkgFMQuACW3lxYy DCUkGLmiIVOuGYyrId4rdG RpvDonYkJwRFCpl5pmqjEB OPubEhZuO612OMCjEZhmr2 ylu5SlKHHdiKLtq4T2OQDP elueuSy7i8hmCgTeMqQ2xL ZwNDovQ6deqkTydQVjZ2Ou qMPmoQr3aHekP43pf9B7Fd mgH6klSKEjKQBhY8AjEN6d PYUzAcc7GVF3QBJ9VVYxYB DkP4WiPJ4jMCAkwKBuVUo9 n8uypRilNTDcQDJ4b8llQV ucyaS2SV6dvz6jeVm8j3oc czEgRGVmYXVsdCBQYXJhZ3 GmbQmyLt8juMw2mMjfNwox YVA7Oay5JA3jki02jan6kY agNJSximbuQaU8KHtwHVZy arrhSGa9UFvdRICmrBO3WU MaxTGnH4UfYQGgZZ2iutq4 UWX2VHqlKHMdMwK4VCBxiH IvOFEacLhbTLuip055ZOZ2 QbCgYT4uO4Tor5F5yF3ahF HrQIJqmISiTvTuPEMeym4y fYCqYFxoe8WqKFG6uvW3fR WxqUSrPPTwTA31Txskc5Yf RxihNQB2NIJawwEmu0Tkr5 laXbOihzRaS6akB6TaIICb CNCqUPXbYyXdgrUwj4Vkm9 HtsCDpqVv7t2qzNFQmMWYk sGvdo0olVKQ5UUHxB1O1mM Gvb4zjGHlkKEAzyDQ6xbL6 WLQrnGEoK2IriK6gSWUqRR 4atps9s3ceWBV7EDdaHLLk GpH5igA4PVKppZVoKUGimS ocVDaik261QYL6NnTcYNXf n1SbZ7VjdJdxI40osGmvU8 5zCZZbaMorhA3sxXhtmV5t ZjBcZnMyNFxxbFxwbGFpbl xmMVxmczIwXGxhbmcxMDMz UUxfN9cxQgGgLZIxnWqoJM cwt6CmJVMxSURgLplkgvHq XHBhciBJIGhhdmUgcGVyc2 9uYWxseSByZXZpZXdlZCBh oEghy1SaN5efUP8cT1OxgH RqruUbckEpIDmhRLEmy7s1 rUYpjLbqc4YkeGZzDG89xv ZcSZOuDLW6YTGyy2cvEA96 rrgnFqGrwY26lfWzxxHoQR Gfz8hrR4airGRwk7Hit6Lu bgQxTEova8HuJU3sqQKsut sopVH5UODsxVQxbaPfxtP5 dFocSVWipX5mjG3atIlpwF 0bNzMmLwFfEVndNE3wQEMs I3mtwTGrHITxHXFjG7xyXj UwaZ6qdEdiQjzlvoE0WEMx cn19 Clinical Information (test code = [id number]) Shivani Schuler is a 47 year old female with IDA1. Gastric polyp x 6 r/o adenoma2.Duodenal Bx, r/o Celiac disease 3. Gastric Bx r/o HPylori Gross Description (test code = [id number]) y2fjjCPjQZOjeMJZHMM8OM WbBE3jkCwzjKx9uTddWUEa mjH9qPKzVTuuk6ljVQN6v9 lpigOQJmgwYWUdOJ4gXAtc WTXkYY8oSnJtFQZgAvJrZK BhcGVydzEyMjQwXHBhcGVy kLZ5GRWaXY4lvilkFDviMX xfGYEcswK7CZLrnIHyA9Th FUZdNI0jzhkqVVS4OVDLAr gaMg8gkFAjyScqNkTlRpEb YXJzZXQwXGZuaWwgQXJpYW a9lE0KMohcWAJ0DUEFCjkf VbjzyHiqe5GosKGzVPPgUU xcaWQgNTEwMDAgXFxkYiBP ExIiVxT9Gat0YXM7AjC2AY j4PAGYPQBtKbqaBAA7UwB9 FWn7GJGgAC8oFMkdeNBbKO wcApceFEejM829UNefHGCj S0QxB3IkTAjvGePlEZswNX UlDECuXIpbSCNcQ6TDUVSc VFS9ScDaTGFgOHj9CLtcG6 TYFITeYRIgOoF5HOQbWdS2 SCl6FULMNc1eXUdjTkNuWH r1JSA4WLm3MgRyEXYoXcId UVNtBKJeQItctZAcKZ4rrR trGIXwXM8AVTWpRFhfBJUb PcMaP9HSI1nMNT8rQVlhnP JjaFxmczIyXHBhciANClxw HHUhCW7HPDIiAEvmAGo5gz XbHRKnMmMvPPOdV08wt7LP o5DlZM3XOOk3dgDxlhwsmV 2zLOOdzfBuXLhTqWKpjM9l saXYPMrxPHXkY2AqdlAcUP zzYPWctl9oaNojRYqaRbIt bGVkIHdpdGggdGhlIHBhdG uvcxVoD7W0hdUdOL7rMUCU CFAbmH1nBZIhFWRzf3QltC OnwBvqT6VaaUJgMfTix6o7 iRT1SPQtooOhUIYtdMUsHX Dzar2rKVapEwAjT7P8OANq UTZdb97wwON9juIcLaGtaE v3qXTjPDH7QF2vzEcproCw a7k6yL4gEVYid1Z3HNMxg9 G9XUAtjgFrwDKxuLWeWPSd HU7jhuQnUA04RSFlOYtpVZ vzBHQ9NDW8SEAgtPPpe0bm wutpXb7mGJnoEH5wLGzdYP 81ZJUiRWbvGNCbJ5YjV4Z8 MHewCISvSFNimAQtxL0zbg CygbMzuUw4MOTaTBZ4mTAd bEffQSPbClhalSE8AVMsPm JzinQju2WdlHa4cCOeWCuo FEUttR8cyL8rNTSyARAwam JDGwouKZTlXQdno4QpIIdr cGljWHNhMzAgDQpcZXBpY0 3vi7VPq0Myv9whyCrpa7Vt mBXbZA6gyDViVV2Fm8fpSI OflDHjFAI2ZKxyg5lcXQci ZDY2UCPfPrKvPWXcTH4IQx PsVQuvXFh4LFdtRVv5IKu3 QA8LMvSuVBArSkh7UkC2Yl SvLYn6ISluNE4OZAN0GGGk PXFsLDatWLE7LYXjLRj0MQ IgXFxzcyAzIFxcZmwgXFxu O05leYCsBLzpUzQhWSnunO nwVNAbIVP6BS3YFRKeBrWy V3PPA0xYYZ6kMyppwiPeKI EwygYDDhsqXCRqVT3FDDFx JGotECd1smJkMAJoTyOkSZ AsL54ud0YLj8EzSK6FFVp9 lgXjnomcfU8tCAHtbqGto2 IzMFxlcGljWHNiMzAgDQpT eCRdaZ8pzuZMHVdkJVQrP6 AcihExNIldJKBajz1itZkh IGxhYmVsbGVkIHdpdGggdG rtFCWrdXumrwSmO3R9qxBg PW7eNIQHVBHsxJ7bFHZaRM CxPPHrHLAyiP3vFIM3g6Ay peOzJDEPMQAdkFqnMS66zZ BjZWxpYWMgZGlzZWFzZSBh fsRttnNwv36cpsCvk1NyFT 6hsHywQKcGWSzsVqShLV9r GSBaucEme8QvEW2nDDMrmA YoNAGyznxwzGWnBLc3eUUb FXJsIxXhvZhua0WsYZVhBB phFZ74kcJeQQ9sLYxdOR8q TKbdFY7fCGAgLWZhXBWeJa IgnSPvMpHeaYLiRpQlY40a YlYXtIJsa2HuE7irSB0rwN ShOpuiwNUyZUSmtBzju9Kk lSFpFVDrp4XfbYJrHNpiYS 5zQRJ6Wz8haHIrSCKdrnT2 a6MrHQvgAZShXbazGSRoFU hls6UaKKAghSBPd7TvAB5I XHBhciANClxzYTMwXGVwaW IOb7RkQKGDNdhriLnbSwEr kJNjEfG0DJLsqKDzCGF0TN 6prGthXURsLJg8TIrxTUNn O5OmW2FjOBoaZhGmVTswDS QpAQBrNWsbAJMxB5TDHUBi OLZ9RkOfYZIiNSc9YGayH7 MYGZFzMORiNhR6GSZ7XdI2 FZe2OYPXQt8qPEraCfNyEC BlVtT5MPo0HrXpSIGwTeQq TYReBDHzFHitnPVgVS2viA upGLXfBZYwLHL9HLSckCKU k3PlDFZhXExwSpUkAIQLMU GNCY6KJzQRQWUdKzNauTMr BG5THXEoevSeFLwegVyjiA 0ldTZxA3etQyIzBypzsPyd TmVzdERvYzEgDQpcbHRycG FyXGxpbjBccmluMFxzYjMw ZTNoyUSNp5PkBTJGWmFgWT NpbWVuIEMgaXMgcmVjZWl2 DTWpbI5zAf1lyBAdjW3feL TxMIjeXBWea5s1dTS6sJTj qHO0yNDqtHxpKqWkQD5kqD FjHVRIJC10qLTrgmPwOKYs oA7qHKNpMTDoYKL6glcmMY VHEGW3pDLnk0D8BHmxSHF4 wQ7ikNfzVvBqY0X1IMKvPR Tyb64ezHO5ysLjNiWsYHMu kt1esS6sQZmhdnYgdIeqbf Aft8K2YIGkr5A7HEXtjrHp zOKvvYAbDAXfWlV6DUKzSf Z3QAHsDODkiXSvWGEmIG6j VGhlIHNwZWNpbWVuIGlzIG EtuKIilnUrDFNcpc70Y2ac OWFioN4ng5zmDiSeUULuQF BhvTWuwLD8ILWbyD5yoM69 dkCejvLBWI2xvBLcNK5LTL NiMFxlcGljWHNiMCANClxw HCOgQFlnj7HfWZqqdTktCX WcXeJeFAxNsWszENFUO1ap pBOaGQeqDRTQSUkCJ8QXTS 8ZVHBnaSRHDNU4TI6eILyz POYgP3EbR0NjvwJ3s3pvtJ ipr9FlqEYaMS8rkVUyCK9Q XHBhcmQgDQp9 Disclaimer (test code = [id number]) t9kvkYEwYZFif8vwFGLmzW FuZzEwMzNcZnRuYmpcdWMx UCilycXpHLole1WyV3XnCh AwMFxhbnNpXGRlZmxhbmcx VVUyPYL3bjIoINHnFZfrIX LtAZcrLl0kyVYclNsiRhEq OBEdf1abxbNGPNwsXoFaU9 56TBThNFcns9qzm7LaDSMm lATmd1S8AJVCyhcghDb5dB xjM09uv5Z3FufbM0xlGNCh QOBlT0HmOT1xOBVmGvo6GC X8DUL7MGQoFDVwL3UxUB9c WBYftIOhOWi3h5ctvSwqZN LoPBK0t8jsJHrmrlNdKM7f pq9hgDi2q8lnuxEvPONtQP QmrHCIHOCuU2TrbUfyFr1h fPz5lDtjRjfyDZZ2Irj2XD 8nsi21skl9rVfmHASbeqxq NjZ2LGhnULEwbvreGNw0JX zbLCOjqFS1ITBzlHUrZ4Du MRIlDA2gtvw0IST1FFudGI AuBhQ2WWIwiHQoFWSmtIpo AYmtm422YYZ6TrWoDM4yJ0 Xbz9B7wZ9qzMXzHBMgyDQj DbXiGQMgdi2ajGXeQIjpr3 OcZFB1xvO2fOCtgVPoWGVn LX33Jowxd8OgSfgzx3JeP1 6qsPX1YAike5roZB5iQjV9 kbIwRUkil9jolG3uKzH7MV bgCS7uAE1oFQCceV2avmqj XHBnYnJkcmhlYWRccGdicm RtQv0vuRmzBUO3PRwvP5cy xB4mNeZ3QUxxS0jgmH4jEP l6TFxcbAS6YVBpqL1uLB0y imqlm1zhWUjgJZlvWZZfyw H2hpB9BUDuwRDwD9PawN9g IUFkWU7slrndm8ovAFR3PW epRDEzISQ3RaXdNKGwg9Rx bop0VjGhd6RxgBPaYDpvH1 0rc079WTJoqgRtQ8wkdLCy sikssRCxmmhlKUopxlQ8WE RlmsByf0NrTNCcGIP5XFkg XOdkuNUkJKMakChta5lrU4 RscGFyXHBsYWluXGYxXGZz MjBcbGFuZzEwMzNcaGljaF hnETvwHgDtKHFgAZhzQ6sh EgHcM4SlCWDiJhItvTVyY8 ggVGhpcyByZXBvcnQgbWF5 QPyjX8a6NWFlvtJtqVb6ot NkHzWdPXRsKHL2QHbalZXg SYFll7GptakooJSnAr5lvE ZtASHovR8eHTUrCHPlHJcp ZJ8brVy1ZLWNpIIbcQMjEe ANEZSmMT54erMhEGFYbkta o9R4MYgcVOMve0LszFXzW3 twy5KhUQDjg60hSI1sz3H9 n3jrYPI4NG6uh3NhOSTlxH TmhJFiEFBrp9Jqhtrie6Sr PUOnusSxt2HtFZHqewSyrT XdUWEswkEleg4exkWcTDPh PDKwY5PfwaqmfJdgusMzWU Kdln1yivReBWM2EHGUWISq VRIry7RwmJ9rxKXDELS7iS Ufse2gadUPxZGzRHMpwv12 IHHkYT8pK4tbGMRrYVYafa SjpZGrf0ZzWPMgyCI7uINy HI3NWxEYc80pKSPuLYGYrc NrJBFghTjgnAH6uqF4nG9g IChGREEpLlx+IFRoZSBGRE ItAL9bfcQni7MzpyVerHmg BHNpzWRxp3EycXJrj3JriM kib6ObvXIvtYMxJH3pCGIg clxwYXIgVVRNQiBMYWJvcm U0q8VqZPZwZALmQKY7hWjf xjv4GDDzaY6oMSYmX1prwv aeRXtxSROjs9KldA4otFNV fIZwp9SsrVAnqBFVxQFeIC 8unjZzQApGOGbQTWB0xeSo UHNom7HxWHlaO0siO97noC ogeDh9oAB5JZM8qQ2hFph+ IFxwYXJccGFyIEFwcHJvcH RuRYXvuZswfeVlZ0LxysYl wV3ilHKmkrJkNX7sLW6eT8 N4hJPjKWBcskOsj2rrRDut dmUgYmVlbiByZXZpZXdlZC Qsn1VtYLpkHUL3WReaorEx bmNsdWRpbmcgSCZFLCBTcG CoeLHhINX0GZibexEqyfGn ZZ4eiT4jrSspkV5stGMpsF I4wbpiNPAiTVZflSbmJFYa HU9amOwiaL9xVeUiBpQkSG lgAJ0hNQMtD4jreJPtFSGw XWKhK1afIiDpjM1yfVowRA xjZjJcZnMyMFxwYXJccGFy XHBsYWluXGYxXGZzMjBcbG FuZzEwMzNcaGljaFxmMVxk AuKlIEEwWLqdW8laSbRnY7 LuJFOgFnErxFBzV5jaPIul KSY6KATsCO1ueWDdSJ74lR Avi6qaOLymnGlhbo6pD79b uRWiIGeacVpfUPTon34rb9 IlTJDsasKvgk5iMJXnzqT5 cH3rWTCliEgjUEXprGCwQF Ihc0QoDNoryWFzbyTpKHpg AHKfKMWcxRJyodC0csOhfn VdrtYpHAFbyFviCONlo8Bp JILsUNyoj2Qkjo3nhGKpWG IdczLVoMttnUXxvU8lQ8Iw CGMeEMLbmx3qVWGjhP3zFN psd3ZbhberEYHnLSNnZLWs otAjgk1wBDZtuKJHKE8OEK akoGIhb1KfszQbY6dUOVT0 NUQwNjYwMjgxKSBleGNlcH WlGXPvxy59LIVucU9pvByd WGUvrA1tmQ8mxPftxT3eXh YwOaIjPKgxJA6yNBCtK0ti wEIwODFdMVEgU3rcHxKbaA 9jaFxmMVxjZjJcZnMyMFxw YXJ9fQ== Embedded Images (test code = [id number]) [facility] [id number] 19:23:05* Test Item Value Reference Range Interpretation Comme nts Case Report (test code = [id number]) Surgical Pathology ?Case: [id number] ? Authorizing Provider: ?Dominic Keita MD ? [...] HPylori ? Final Diagnosis (test code = [id number]) l2vajZVkKOTkw8ljWRRzaG FuZzEwMzNcZnRuYmpcdWMx BFsxnsHkIVepbQltLAU6IX UqQB2zuRfnqPg3ySdfBWIx haR3gPQfPTqig1crTUJ0c5 xkxxnyITZpLVurOt7ocQDd qCmxEbBlBJBtOHy0wF23HU PtcY8jtBFuRTa7VRQluBNb suIcQfMkUFNloRHtxSK5FY UtCY3pabhuAFaaSYndKCJp dgP7EWZzsNNpJ9PwQPVbPI 2zufmtGUJ2CNnhZMKeARQ8 HrZhVHQwa4Gbvsj5UwAejN FyZFxwbGFpblxmczIwXHBh xzOAOeOJEM9KASQLERMGZ2 lYTALDYD0FXUWQEuzxdGAy GZGiQACaXHODAV6BOPWeJ9 bONwThJA5JARRsNUImuMRi TUXyljVJRaXOAT0CYW5FDV wgQklPUFNZOlxwYXIgICAg FANwUIaTS9UCWGBxNSFGR3 GSRFwDCTcjVr5bCQJPKO4H P7qKX2PIFKHJMY0XKQrhYL GvUKNbVIWwPB6PKHzyKMUR CA7YQKCTCIWBBHnSQGQWMO QXNOxIZAJSZ2JIWGjMJMNj djmkKMPzRc4yZ0NDHJULZI wgQklPUFNZOlxwYXIgICAg GCOaRNQSS6CIAgNACZ1EO6 8DCYGPLWLNVW1SQCJUNHvH HL6DFHCZMMJODDQLV2SylE FyICAgICAgLSBOTyBFVklE JJ1ZNYVXHbSNZJmHDSOhNF lTRUFTRVxwYXIgICAgICAt MU9WDQnpKUQYQL9CXSFKYx dBTklTTVMgSURFTlRJRklF OIJFWURVFP0ZBo0CLPLVYm xwYXJccGFyfXtccnRmMVxz n1TdE8QrQyGlDSwomnRfKZ QoSfbvreahKXBbPLU9jqAn LWZhSTztKCLqSPymNv6foI JyfNsxDiFfWVBwy0dyhiMK RBwiWvAyU748FJQhGEili9 zts0JxBCFynFZnd3J1ACLS ypnbhBo8o4anFyVeCkO3aP EoMJpyJ0jwjoFgrNPhM4Wd aZGdnTb0vNdhY11tu3M3Rn vkK4hcASQvEQPaA1UuXX1o FDMjNzv4DMK2XIQ2NLZoRV KlB4YeCZ4xPILjcQZcYMh7 p6dgeImsXZMkZLA0i7ejOK pbjqL9JL3nui5zeMy1r9xl czEgRGVmYXVsdCBQYXJhZ3 OobAghFf7wrAy0oGyjEgbj TOJ8Dad1DR2zkr65inf5qO aaPIUclebdOkH1NZnaCYBd ssqdBEi5BVngTBQpsJV2YR MglSCfE8QuBJPhQY4cdbk5 DOO3CEzlUTOlTzT3XOMjbK AkTSAapUdxKOnsp825PCM8 BsMbYC4jM3Kvr0W4uP1bwE XrCXCesBKaZgZfXEGyhc8f lIScZYmpe5SpGFE9hgK6tY FmrQQpSAYoTW54Uraqu7Me RwagFIT6IZOcnpBwg2Mqy4 qcRcKbrfQoZ5hcW8SkDBTr UPQoJBBkZmSmgrSah1Sdo8 KyoAWqsXk7m0biUJSuZDUk zQcja9wxCLP9PHAnL8Y0mJ Fsc7uoWIteAWSupDY6qzZ5 KZZxlRUaY8IxoP8zCUZqCQ 8gabn5x7ncRLJ1MNwpZKZg ZcM9pdY8USKjeEMqBCTqvW tiHCqmp075RZI8QcYmPXQa v1OdO8CurPylI81xzZsuP3 0aTAMrfMhxzG0tsWpxzS6w ZjBcZnMyNFxxbFxwbGFpbl xmMVxmczIwXGxhbmcxMDMz JUcyT2muAsTbVHFvgQjrEQ hey6QoWKJhYLJqOioamqKg XHBhciBJIGhhdmUgcGVyc2 9uYWxseSByZXZpZXdlZCBh hKqbb7WpG0tsOB3kR8PysB IkdaMkdlWgYDimNXRhs4o9 sQFxbUbzv0MefPRnLJ35hi LmZPOwMRZ3PBCig0hsLS74 fkyhUbIycD79mvNjfoDxOQ Tqa2otO9gkfZOoy0Fta1Qy vbFmVMflv6EvOX3qbXMksp bbqAO0KUTtmOIohqBffnK8 oIhoPVCuiG9bgG0pgJymnI 4zLuHzUiWqRDkaUB0dMYDx Z2ptxGRyTDOeUVNsB2tnLx UzbC0sjLfuSucmklV1DYQq cn19 Clinical Information (test code = [id number]) Shivani Schuler is a 47 year old female with IDA1. Gastric polyp x 6 r/o adenoma2.Duodenal Bx, r/o Celiac disease 3. Gastric Bx r/o HPylori Gross Description (test code = [id number]) d4svpOMuGSSteKDABBX6KW FmBO9kbVpkdEy3mAkmNCFt ouF2nDDfYOrlq2hkOXK5t2 kvevMGOgdwTSFuRR0dWJwg EIUeEH9bThSkLJXkLbUpKS BhcGVydzEyMjQwXHBhcGVy rLQ9DHNjXP9atttcWKiaXT jhWSMcnsJ3UUEnwMGyG5Aq HOTwII5yjyfzBLR4MJFXZg pqVj7wvYTllRwnZtFcAvSb YXJzZXQwXGZuaWwgQXJpYW a0mJ2ZGkzmRUN2OIBYDtqt AhkiqKjid9MafDXmPCWpUG xcaWQgNTEwMDAgXFxkYiBP YcEeFtE3Dys3NFM2EbT8QQ j1NNYCUQSbGwmaCXQ8GwZ1 QZn5WNAcFF7hXIlznUHuOO jlHssyZSnkK652KLaeWYYk M8ReF8NeITyeWcYvADhaHS FqZDZbXZhmYGZkR9PQZIKx IZC1DyCuWVAgRMr8DVklH1 DZUAKxJUZhLuR2OUIpMwN3 WYs7PNQEHa2xSEniMnBrCO m8JGU8LNw0KeLxATYsYeMc TTLkGDKbNIgkrZZzIZ4qwD zoYQZjPR7ZRLMbMFgwEEWy NiJoM7NPS5oVAB2aVNjhxY JjaFxmczIyXHBhciANClxw PPWjNY2NQLKbNOmjKWn3cl PsHEQbBbGrCWWtI73sh2OE n2SsJS3EPWg6daAruklzyV 1vFCSvisYjLMbCkAMwqJ7n krUKEXtvEPCvB5IbgvOdNM ayOGKndr0ptJxrPJowXtQx bGVkIHdpdGggdGhlIHBhdG bnbqFxC1S1xwUvUQ0uGZZH DISwgP2cATFaXLAsn8GziA GfoYpvA9GeeWPkScMty2s0 cOJ5DUHquuZgRWGtkRIyTX Bmsb7yNJtsWbAhQ1I8KRKd AIKru63iwAP8xyLhGyOweW m0xQVvYNT3ST1nbCobivAo w3o1cT6iBXRjx8Z8XBCyo7 S9RZSevmWtyXHdaQRpIRBd HW6dsaGpQQ69GFJkTXqqBV psQJU0ROD2VKSmeKNnq3yh xbciNw2jVViaBZ3zYXqgUC 86RCTzIMtnYSWqC2TpC3Y4 CJykTTKrSYDnvUDhrB7qtb WjelZwzDq3MNWfKZZ0uIDy vJhnJBKcWfdhbBS1VATwDu EaptRtc5TuxAx1iNGdPYxi UOLngQ5gxS1tPAUsAXCdpr MDJkpeLNAgHBmkj4UdBNtk cGljWHNhMzAgDQpcZXBpY0 4xe5QZq7Qsb0ndjOitc6Na mDMjGG1gqNXiUF1Hm0tbMA JnpOSxXQV3UOkgj1lhYQge QHA8RRHqSsIbAFGbOB1AKj YnYWqkGNz9HEskHXz8OSp4 DO2CXuIvSRJfQbi4BrK8On WzTTd6VLbxCT6ZWWS6LHHi JZBnLGikMVF5NYFeFAl5MY IgXFxzcyAzIFxcZmwgXFxu L58yuTFyCMaqLhPwLHmvcS zsOKUzGMA1PT4LOIWbLzWz V7DXZ3fZIW9tYkfrjmEoHG GffhLHHcoxENEuKX9DGWFv KZonXRz3blVwOADpKxZmCX DpM39rl3TTk6OsXB2JVTk9 gwHooztpnR8rXMStrmXdw7 IzMFxlcGljWHNiMzAgDQpT xABppX9gnvLGTTzeHREuW4 HrgfMtPFioYEQgyl1jyRlm IGxhYmVsbGVkIHdpdGggdG rtSPOrjUgijhIkX0V6foUo VR6iDAZWBRTtjM6rGKFzBA EiAYOoZQYxgT7aANF7r4Ly yfDiNIZYYEKzmFvcYJ59yQ BjZWxpYWMgZGlzZWFzZSBh swOhpuVty04vjzXtj0JcEO 0tfYgvGIiBQWprFtJlTE2c SOSucqUjl5VvFK7eSWBfxY QhOKAspecndXIwTCy0dKKd UYYdGnCsdAfmt0LsAQCzWS fvIM21icHxPF8kQQjoOQ8e NItjIU7wJMQvQBStMCBnOi CzyAZuJoGwbMJyKhMxJ48r BkKAlWTki7IhD7xqQK2ozJ JqRgujuBQfMVAsoGzpw0Mm sGAnKWTre3JxfKGoPVvlVF 7lDQB7Up9muFXwHCKpmuI5 u4VmIXihCNMmYvqrKFPxCB qna0FdNAOtrBGLe0BgOQ9B XHBhciANClxzYTMwXGVwaW AHt1ZnDXZEYddxpFriFuNr vUSlDjA9EBPprPQpJPZ8BY 2tvGjuJNAcNJs4XGbeSCEb H6CuW9CkYVjgYzTbEIykZE EeVIYrNFdqHMPeS0CXONYk XPB6OiCnGOEoRPe3PZouA6 BOVEHaNOFwUpW1LDC0ZpO4 XXw9TLKXGr0rAWmvKxWcJA WxAhU7FQl7QlMkBADcUuQg FYKoLBYfPBrovWZgLU8exD fuNINsLRUsEJP0WLQeqXQU o1IrSSRaBAmeTxUdMOCICM GNDW8KFaJXTGRtErVqmDWi UY1OSBScvsZmZNxnuJqgcB 8noYClU3zuWpCvIczsgCco TmVzdERvYzEgDQpcbHRycG FyXGxpbjBccmluMFxzYjMw EOSfvIMLj5GqZEXYKgGePD NpbWVuIEMgaXMgcmVjZWl2 QJLomQ3zLp8yvZVvcN3zsP BuZIvhIUNzz9i7yDS5pYTh yAK5fGPerPqbSxFfKC9nvP YuIBUUUH20lANdapBwYLSn qC0dNCTqLXQrDDW8ulzlEB UXIZU1iCJrb5B2PAahEEV1 lL9mbMhfKgZvS0W1FDTpEG Gtl75mfYG1ucPtDzUpXYEe pi0dwT1eATauceHhgLsoxi Cak5A8UFUlz1L6XCHgsnEx nJJshHJiLYCzJiF5MUUrPz B2URJmFCRpmKNrTMJuHA2q VGhlIHNwZWNpbWVuIGlzIG WlgNYzvgIjGGVsxb45K8iq PQNzvX4vj4uwNuCwINVzAG HgcWPkxLM4BPCdoA8rsR74 pcItlfVQRQ1oiWYxRF6UYF NiMFxlcGljWHNiMCANClxw UMJpLBbts0QsGGojeStkGF IjJoPoDJwQpZdjTVWXI4jl xALiSKcaKRIONVlTP4CQOP 0YRXXroRQCQNY0IG3jLHbh AZFnL0PeW4DaicL5u7zgxY kcv3VkeRSfUZ7epAShSX6F XHBhcmQgDQp9 Disclaimer (test code = [id number]) a7azdRErSORkq6suDULbuX FuZzEwMzNcZnRuYmpcdWMx OJsssgWyMPejs7DwP6SlSn AwMFxhbnNpXGRlZmxhbmcx PPMgFWN2xrVcZYMxNRxsHJ UkJUjvZn5zmXWknVsxIrKg HMIhl1awxlZXRWmuJqYsX6 80TMQqMGory3gdj0WzLIQs kDOlm5C4YNJCydmavEx8pJ liB54ev7D0YduiU8bkWGAl GUYyF5LlAL7eCJNrJfa8SA I7SMH7DSIcDRUiO4WjNF5h YROsoYNaCUd6y2vbsGlcHS XzFPD8e1wuLGumqgDcQG8t tu4fbUg8d2olvdEhGXUzQK HrjJEAXDXhR2CslMcbJj9s aHa6wJdzLsltFRN0Oey8FF 8tiy03csu3vLftJBZxvgjv ZwV1LDhmGEClatkmPVf9II qnKITynZR1UWKiiVStT7Cs LCLzHI6ulji6RWQ1ETjqTL YzWaJ1HAGmsTZbBCPliUqq OHedh686ITZ9VyHiII5kU8 Jvs1O7hV9hjJEoELVbdMTi BpEaMHJnpc4ghJXmQPhpn1 LyBBW8ouT8iTMjoSOpUOLa WD13Cypfd1UvWmgqc8SsG3 4weBS2AOqqb4fxUX2cUnP2 ueOtHUgde4ofgL9zLwU2YX qgDL5jLP0sPKPifQ8jayaw XHBnYnJkcmhlYWRccGdicm PpWt6esQrnFHL1BPftA3he kQ1hThL6TQfpY9poqU5iIJ p0GTgfgEC1DXJgmE3iAJ0q mlebd1fdBZrgJWzyDNSsug M2klG4IETmdGTeX1DwoA7t QDMuRI8kbponx3khRZH4TP suBBZlSWE8YzOaYSJke5Pr uex3QjEsn6SgwBHwLLgcJ0 7xq387UBEmmrQkI6vppQVx lrgavKYbfqmxJKankaX9MA JhxlHai7ZwNJMjBCV7NSyc CEcbwWOmSGNrzSjqy5cxO2 RscGFyXHBsYWluXGYxXGZz MjBcbGFuZzEwMzNcaGljaF rvMUelXsDrUGJuKCaiA0pl FkLsP6KnNHOhUiDaaOSoS3 ggVGhpcyByZXBvcnQgbWF5 GGfwT3h4KVYizzGarNj0aw YrSfHsVNWkFYQ4SQcjaOHw DZMev4KcbqkdsVLlQd0ujX WbTIBscT4mRQFnNTOwYRpz BR8zoKl1KFBYcVNmoSQvWh OCZCOgAV86ceJvOWLYjnbf o4A4CRrgAMGbn8OtxSHdT7 fve8IqJDTct95bCQ4ki6H0 n5esDVP1VN2uf6RcUNRalX UqaCQmERTbo0Sgrerfp6De QPMrfnOzi2DgOECppfDjnF ZxKQLdljThjr6qqyIjOEZd JWZlY7DhopiquCerywNvVX Wcsk8mkiZmFEN3KJUKAVMs RUWhe6DbuY0hsRWMEUH5wM Yjip7wwzMBfMZjJHOfrl99 MJYsWO8nB0cbTGAiBSHirv UolRQzn5TrUNMznFJ2qRRe PA9NDhDPv99bKPPgMOJFol VoSCGvxDakoDY7efY0gV9w IChGREEpLlx+IFRoZSBGRE VxRJ7aydShu0CdjlQsfKwh VZDbwNSiq5JioVOiu9GjtX fib8OjaCIchOEsIK1vAJVu clxwYXIgVVRNQiBMYWJvcm A1e7UaPSHaYZAhYHQ6uNlp dyr0OWEqaD5jAGRpY9lhvh xmNPosWHRld5VfzQ3kxKNY sIXux6VvlBWirJVZuTJsKH 9xliInDBpCZPtYVWU7dsNp OVJop7ZhGXtnO5ddO25dkD zvuDg6xSC3BKQ8oW4xZfi+ IFxwYXJccGFyIEFwcHJvcH NbWCRyeAvkgqRiR4KdqiYg bF2ywOMlcgXzAM0zZP5vQ6 I2zSObCKPqfdWcn5fiZQsq dmUgYmVlbiByZXZpZXdlZC Wyk2SmLFkoDNF8QLtoxvOl bmNsdWRpbmcgSCZFLCBTcG QnxKTdCSO5IMqrnxEofaPq YB9fgW7lyGhnlX2qqZBfbG B1rggmKFZtYFMtiUgzOBCv EV4xoNxgeA6aKeCiSwBmOY tbMC1vYNNyG1bdsPYtGWBm RJArE4nvFySdzY7svYeqZD xjZjJcZnMyMFxwYXJccGFy XHBsYWluXGYxXGZzMjBcbG FuZzEwMzNcaGljaFxmMVxk HlCjWUAwPCxjC6hfJiSjL2 CwMRAfEiLuoHSrJ9kjBGej PDY8JCQkXM9edHGiRL12wS Hht7qzHLhdmTxkgd3iP72i mCPvXTgbxMvrGMYij95gy7 OsJAFbatXyhk5nMORthgK3 qZ2hUNLjePatQDIetUGbKO Obf5IpYOzyeNKjstTwQNdk HIEjSGHhoACliiE4hyZbsu BmptLnCQQdfNlnGTXpu8Yk TREfHXdyq5Sfhd5bxDYwFG PhphJVhHbyjIWocT0bO9Xa CFMwCXJuww8eLWBczC9bSU rgp4IglmztYSZfHPUtGOIg uhFjxl6sXBLtsIHVOK1IAR dykZVng0DspgCnA7qRADP8 NUQwNjYwMjgxKSBleGNlcH IdODGugx83QNZtbQ9vwWov NWXrdV6umE3okPxbcH4oDx QnYcBeYFtzBR7lXBQdM6xr qNTbOPZjMGPvW5whOyQorL 9jaFxmMVxjZjJcZnMyMFxw YXJ9fQ== Embedded Images (test code = [id number]) [facility] [id number] 19:23:05* Test Item Value Reference Range Interpretation Comme nts Case Report (test code = [id number]) Surgical Pathology ?Case: [id number] ? Authorizing Provider: ?Dominic Keita MD ? [...] HPylori ? Final Diagnosis (test code = [id number]) k8bcsZHcYBVzl3iwTHBqdP FuZzEwMzNcZnRuYmpcdWMx JIhpyfJzRSrbpWaiFLL0FT PmVZ8wsMtdkYg4wUnxAVBd cvN2wUYiYRhxc4ydPMG8j6 myamgfMASfSFvbXu0ujDEw iCmoTwBoOPQyDBb9aQ82RW MbjO6mhYVxRPk0HDKczSYu hoDpOaDrZPHcfFTycHL3II PoDU1mkwbvWZcoLXqiSHTa wrT5RSYmyQEnM6WcXRSvTD 3jpxuiRWM2AWwcAOHrGUW6 XuQtZIMqx8Yngrj1OsBbxZ FyZFxwbGFpblxmczIwXHBh dmCYCnJYOW6HELPDDTDSU3 lCMUAJQP4UUJICUlhujNCc RTUlCPVdKTHHEY9KOHYrM6 hQClPjGP6ILTVdEUVgrKXi BILyrnLYYwSAZN1MQR6VBI wgQklPUFNZOlxwYXIgICAg OCJdQYzJW2XKMGKbPRBDN9 WVMDwOBVssNk8mXNANAY8G D9uFC2AXBZXWRP8RODxhLB OfKHEyVTPjWR9URLznGIQC UB1SSLRJUAMTKOzXPXCWEQ KPLDnXMLQJM6TNTTkBPZKw pfaaAEDyLv9gE4EKZZBYMA wgQklPUFNZOlxwYXIgICAg FKRkLFGMZ5KFAwWIRY6LN4 9NEGIMLJVUPW4ORLOIIHlK HP9FNVLQPLAIHUERP8YexG FyICAgICAgLSBOTyBFVklE MN4RKMOOYqBHAHgRQAKjYM lTRUFTRVxwYXIgICAgICAt KO5PWOjqKQSPIW2GYQBIGq dBTklTTVMgSURFTlRJRklF LGUAFWKLSB2WOs0ZTVECDp xwYXJccGFyfXtccnRmMVxz z3HtC8OdInBdRBnqnmYqWF IdVfqmffrwMLQeZCK9laDz KTYtERqqSQZdXSdsFe2tlJ BcyKjgMeOpZUEvy7hczxXI DLmySaWeW835PRNjEFkor6 boh1TcXITgqOBrd7I0LRCD szgjnNq0f9giVyGyYqH2tM NgTCpoR2manzUxoNOrW4Wx yJJszJl8gTksD18te0P3Un tyX2ilPQHxZBMcB5GiHV6d GYMcLuh4RZS3QTZ1VEYvAZ NhL1SkSS0qMNLclAPxQWs6 a1qxzDjbXVErVTV8z7gcBJ ksekR9FM3cih1emSo2n9xs czEgRGVmYXVsdCBQYXJhZ3 AoxGpdCr3tfZb6tYuqQiwq UVQ4Due3AJ0dcj91mah6mH gxJKMsyfwrSrZ1XLttNDPc svjjTZj2DThdBIWzuFR2PP JzvXKcK0SiKZPgCM4nfax0 VFR5OGtaSSUkJaU3CXZtcD PuFTYweVctHDwvl996EGA5 FoFhTI4pU0Zky0X7bW8reX OfOQJljZKhBlMhMUEerj6m kZWgQMnxg5RoFCM7yvX7iS ThdETcEWEzFC03Wnvzz5Vp GuzrNWJ7FESmwjNxr0Wav3 dbNjVtamHfJ1iaA8FvLGTt YBKhNYOyShPyenEck0Pbk7 DrjTEmpPs6y6smXYGnKJJq uCouy3hjJED2MYDvR2F6xH Hdx4skAUyyOJYvxMW2rwS8 USNdtAFlP4ZioS8yAPKpNY 1ydfs1m0erCVV3FLjxTHTa OlH3vkJ8GQPxwCSaHRWfuY ygZQvgg370CJC9KuDzFQOo m0FtK1HasNapF22poBmaE1 3nJENqeWvgxD7inUaomF1s ZjBcZnMyNFxxbFxwbGFpbl xmMVxmczIwXGxhbmcxMDMz VKvcS0ytGrHlEBNqmXamMF kjz3MiKJUmGHPeDioegpTg XHBhciBJIGhhdmUgcGVyc2 9uYWxseSByZXZpZXdlZCBh eBumg2KaD1pvRB2tL5KbhM IepmKizwYgNUtkJKOjv1a6 wNDgbCsjs1PulNVkBU27ya ZiINBlVZH2WJMqh8iiAJ22 znudHjYztW07gdYowmZkSP Vyu8meT7ckdBQme1Wrp1Zd hmZiVZokb8UrSH0uoTImwi tgeXP6SZCmfPYjimPmndO2 hBnwNNUskM1dvA6rqDhcsT 3kZhXvNsWxGRwmWX1fOGIa L6ftqVKgRHKiLHKlQ4xrGn XewN6wnZjvIuwoqvK1WCLw cn19 Clinical Information (test code = [id number]) Shivani Schuler is a 47 year old female with IDA1. Gastric polyp x 6 r/o adenoma2.Duodenal Bx, r/o Celiac disease 3. Gastric Bx r/o HPylori Gross Description (test code = [id number]) u9snkWNdINRumWRTQPP0IG GxGV1djRwjpDw2sJjoRMIt qeC8lAXvVNqqb0nzYWE5j1 acfmCTBuwvUGVaGH8zMVrk YAMaZW9mSzPbZBZlFlTkBP BhcGVydzEyMjQwXHBhcGVy jOH7KBUaVE2jreruFIjrVT gyONInzhL7ZSUnoFVwL8Er LBCkHT6myzypCZS7OTCUXj wkHx5cqIRlfNegZyPyTmJw YXJzZXQwXGZuaWwgQXJpYW r2mQ2PIzevFNS6QWQYZqdf EefrcPvas2MmtEBcEAOeVG xcaWQgNTEwMDAgXFxkYiBP VxNrSkD2Qba3TNZ8KjX6ZH a2YESXJJPmImzyFLN3SgL4 DCn2HLNkWR2xDAqlzFFdIO ceDklzAUmtW507RFdxPBRi U0ByT1OfANpnZrZrSCtsDT UzIPGvDQopQGZsW4MSDJOd KJT1JoRjJXJkWVc2XGhnI5 JZSUQjKTAuTxK3MLSqAcK2 BNt9MEHYGm7dTGuyTxZrIR n7UYF3CIa5FwGpNUGbPoCj YSPrGNFpCCcxkDDvMU4jnR ljWNGiIR5SHTKnTZgpDVAt AtDnH7HBY9vOMQ6mDRgsfL JjaFxmczIyXHBhciANClxw WWKvFE4XACRnZAsgBUx6wn YqYMNqNcRxGGHvK48tp9MA t5OrCP6WOBk2lpAiawbsfJ 5jJQAkpyVuIRpLkLDroT0h hkBKELkcHNYjI9QhdaZeWS ucFZYfqc3luQeyWSbvKlOf bGVkIHdpdGggdGhlIHBhdG dgatIpI0C5vaEgMP1kEUAI NCQyqN5xHPJdIXFin4OxqG ItpIzzV3UsxQWjIvTic5a8 vAS7LLQghhZxHKQlwMZuRS Eeld1nZEreByAjV8U6SSBr CPFdu63plUH5zkSgOkIkyK l6nTUyQGV5MD9gaCwwcgPk g5o3aV0mGHIzv8S9UQZej6 Q5CNTmjtFsvHTumUPyLHPe KE9xjuDqWD20QNHgKEjzTA gwCJK7HYN9FPNtkPWgw3ka nntsMx4jBSlhAC9oUNmdWE 71ZPSaKFbzTTZrP7JeL1V7 QFgkUOEfUSZzdNIpvT0dak JzztNokWr6FCSrKFE1dWTv jXrbLTGsDkkloQU3QIGfMe ElufJpm0WsiKl8jHPcAFxg TRQrxW8lbC4wPAWoPJFdfy FTYcprHENnATsid7XtQQld cGljWHNhMzAgDQpcZXBpY0 2xa9VCu1Vge9lfqShvb3Lu fZTgRY6lyNYzHJ5Qr8niIT JtyHPjEOW2DGqvd5zbGMrg KMH3XRSiUlZtKSBxLJ4UZf VjVFtdCDo2XVjdWOh3LYn6 ZA2VUzFjZTJsWxs4YdF6Wj TyVJb2WQcuHY4WDMW6MHRq FBNbHRsaUBZ9AXIcMAw5JN IgXFxzcyAzIFxcZmwgXFxu E61tfNOeDUpgMyAlSQehxF mpSOXzFAK1JU1BTSTmBgLz Z1AZA0xXPW8wZsblqfQiEQ RgueVWPkepOQVhJO1HZFUm CFtgQBu8vzCtGKWjWyHgFZ ScK15cy2TIa7GtZI8PCLl5 gnWlqevfrW1cCLAolfFrh1 IzMFxlcGljWHNiMzAgDQpT mJPunW7emkJLDMjqRHIeA3 QooyZiGWxaKVRorg7tyBhh IGxhYmVsbGVkIHdpdGggdG fkLGCyvGuxttYoU6X2uyUe VW1oNDNVSDTicJ3kYGReRA OsNWPdIIMtbS8vWML1o3Bi ixLiUOOMDOPklJmlRV68xW BjZWxpYWMgZGlzZWFzZSBh qaFyxvFud48hlmLyz1XiKE 6ndDyxHMdYPPtoDnAcJZ9g HJLydtPjt1AnYZ3cNKStjB KePIRohdspcOYlZGt2kTHv FFIzXcQxkSebm1DzALAqFK wyMY76vmUvGK4nWNceXU7u PExfOY7oPPYmKIAtCYSoPm IlhNMhRzOtfOXdHlNrH24h EkMNeDBkr8TrM2teVR7fbR LcKdxptKNdRZInbLdgi6Mc wCYoTDSlt9KiaVHdSKlpWD 4pBOO7Hy2hxJFpUGSyncP5 j6NuNYyoGOQkXjyrLXLmGD tcv7AxQXKdaPQYp6RmUF3Z XHBhciANClxzYTMwXGVwaW VYf8AlHSNEZrrtfMkmUuUi tNPpAqX2SXKljCUuPYJ6ZW 4niJyfLRPzVZn1ONnyDYGm R1OxQ9AiKTgsXeHuURynWN RoZYJtDOvwKJViT9NLBFMg FQG0HrAeVHLmAZy3PCdcZ3 BARWArUGDsSkO4PMG0SjG1 PXw4AQEPIn4qWGqtXhThYM ElYwH3EHt6YhQfOLKlXrMb SQCqUKYgCTkgrFUmHR0dkZ iqNNIyKYKnOHG6UPAaySLU l9McRDJyXMcoEeGdATOSJM WULC4WBvNFJVBnVkMqgHAj LT1KPRXbhrKqHCqenOutoG 4asCSkW8hjCmDwYjzwyIdy TmVzdERvYzEgDQpcbHRycG FyXGxpbjBccmluMFxzYjMw NBFfyAVDf4RrSSMBZgVkOJ NpbWVuIEMgaXMgcmVjZWl2 KETarH1oCh3erHJkaF5ckY PtOIekJHQzq2w7lJU9bDRn yZG5qXFanMdyUxTvOU8thK YzATTYLW59yVChzeZpJIBb iJ9fLJFcOBByIQO6peqfUZ TZXHG2fHVeq0B5IKtjHOM0 gM9exQgeGeNtA1V8LGUnZQ Zco41exFS8yiFyXrRdJFQf if2ajS6aNWbjpqCrsDbkeh Rzm3G4XGUsm1I7TVGyluTj lDRasIOlFKHmTeB3UFMoGa Q1YKAeOOMmrOMiMVEzKP5i VGhlIHNwZWNpbWVuIGlzIG BhnVRixiYsUEFoff00L0op SGEbyQ0wk6ccFjKcYFYbAT RycIYvlTC2SAVlkS5vvQ02 cnAlnqMYOO3moGHpDQ4JPI NiMFxlcGljWHNiMCANClxw UQDkARhbm1IrMEuzcZkzUO PuXzDnGBcHcNvgVHLTN4lv bDSrHCazNVNZLJcRA0ZSOO 1OUGTizOHXWKV5FR7bRZko GDGlF5SbK7DyndJ0h6vvaK qkp2XjyWHrDY4hcGMxNX5Z XHBhcmQgDQp9 Disclaimer (test code = [id number]) l5rtqPHjDLYia0pvDAPczF FuZzEwMzNcZnRuYmpcdWMx LPgtxeGkWImec6PmA4DjDi AwMFxhbnNpXGRlZmxhbmcx UOWtLDK6cwOvTTZdSEajPJ ImVCenZs8ssNWzzSkyDfGz ODKuz4ttnuYMLRzqZbWhN5 01EBRiJJult1rne7XtOPDd eWZij0N7ZRGWkzpuqRj0qL opQ83km0G9XhoyV4jwOGSv GNFgY1AbCX6mUAOpWea2RO Y8ACZ0RCAmRLAiO6VuTV9a FXWmnKDrDLw2k7vosHqlHT QnYSO8c6amDLutqpVqIV3q zb2dvWl4w6akzgJiSGOgYA HtwRBVYTDzO6NibDvdNn8m aMu4rThrFgeqWWX6Lbv7MC 9xns61ozy2gVhdGPQwodvc UdV6CMtbUURxxgqrJOb4MC gdAAZisTZ7IHCzaAGoQ8Dc AHTzZZ5lovp0RVE4KMlxVP IoKqB9TRRvqQZuNZYbeWpn ZOdeh847VPY9HyOxWE3nV9 Rmn5X7cV4txAIeDBJrwPIl FnInAWYzaz5oxSQdMOwnc4 WbOQE6unR1jIOswGMlRPNz RB46Xfhwo5IeCyxai3TxL7 5giIA4OIbda3qlMV8lNuD1 fzUbBCxvn2zdgD4wTfK2DR haZM7gJF9bTRTtfK9smmdm XHBnYnJkcmhlYWRccGdicm FsNh0nvFghXXL3CAplQ1um tI8zBsS3RDzwT2pcdY7vNJ f8YAaxoBS5WKLxsW0iDK9l dserk8cxLCfjTPcfHZOjlg Y6nlO7FEOreZJcT2PijS0e NHGlGH4bwwbnm9ytVUI0JI dcBXRaQQS5JeAwMNKhd8Pt mcv5OqSlf4UulPAaEQsbR2 2ua705VOIzonAnH3nhkECm ibounOJpehglUAjagtM0JQ IdehAmv7KpMCRyBZH3GJjr OGsbqSUrFESekGhot9lmV7 RscGFyXHBsYWluXGYxXGZz MjBcbGFuZzEwMzNcaGljaF tlAEcnLkZjBPHtJZavJ4zg DfLaO8HsNKXrEaAvoBKaN6 ggVGhpcyByZXBvcnQgbWF5 EKodC0a5HLSwxfSncGi2wl CgPyAwEAYoIWU1KAkfrDRf BKEyx2QnrnzuqWZgKr3jwV DbSDEfdQ9sVEAxOUArBRcc UG7kwMh1BVTIqPPqmWFjKw WVOMXzMC73ebZzQXBKxtnm z3O3FFtjNECle4KbaUWbX9 nke6KgLZQqa43yIC0je1I3 g5sbVTR6XU3oh5NwDUNsbP NznOTkPLHdr0Qxxcymz3Ix XKNhtyTpz0HcPZCmqaYtiI McLHDtppHncf4jixXiPMJe QNOtL0UvnehcvKhumzPbAI Lnpg2njcQzUQS2TPTRBUJs WYAny4VvdY5reDWBLVV1uF Gejb5hvxENaBDcVCLrcm23 JAZmTR7nC9dgDMZaUYFcdb TwfYOuz8FrREGepCD3xZFn DV7TOhUNx51hTHHgWSXKhk WuZHLdtTvkbGW7ctL6rN1n IChGREEpLlx+IFRoZSBGRE UkTX9ofgGnv7XffiGepTuu EQEojQIgi2UhgCYuj8CrxJ rth0UzaDCvrAErFX4bGBBc clxwYXIgVVRNQiBMYWJvcm Q3j7LpMPYcCUVeWUP7pBsl jdb9BCMckQ7mRTPgP3dmxr bxAIckOKXun1WvnW4yqZED aKQhd5YlqSCjfELDpKUuHM 4pnuUhQToDFThREYN5ljCe HRGjp8GhCRggC7mkR69lmZ oroTx0zET6GLT2lL2xWwl+ IFxwYXJccGFyIEFwcHJvcH SaGVMpzUuowfLbD8PenqLu tD3vnWDdyqAbAN7vQC6yN6 H9zZAsQPGujoYen6iqPNjw dmUgYmVlbiByZXZpZXdlZC Uab4CaZCdqYCN6JSrxxgHr bmNsdWRpbmcgSCZFLCBTcG SqtBFaOMG6MQlgemRoqvQh MZ5trZ3raNuamW1wwOYmzN A0ulioRKJkBUDteFaoXYPq FY6evAovuR2oGnErOnNdPQ ngHW8xLVEgB8lqfLGqFOUy UEFaU6maSzWubN0stDevON xjZjJcZnMyMFxwYXJccGFy XHBsYWluXGYxXGZzMjBcbG FuZzEwMzNcaGljaFxmMVxk VyIvHYXqKItjN8ztXfMmK3 DcXVIcEhDagREzO1ghPHic XJL4HWNySD8bvLDgFY50tT Akw1dfOOhbbPegvy7iZ22z qKKoARxmtLwxRLMwo71pa9 WhPJPvsdMzoy5iVGUfhcV5 cA6gAYUxoBxpFNWlgDZjQK Etl0QhSDyypYGwjjQfQPpp VHOrURJxeHVuwrY5eyNqrq HmyuYcXZCtvGtoVCNsc7Aw PKHoKXcto7Nofu9bmYUqYS LlzyOUtRzqzEPbuE5iS9At JCMyKGRifz3lSJZheI8zXF mwe2TzixwmGWIsFELcKXBm ceIpvm8pBHMwrDCHHX4JQI ogwGDtg7IfapOoV0uXPJQ4 NUQwNjYwMjgxKSBleGNlcH TzMERuyp71TILifO4zqCmc PUDfdO6nnX3woUzizM9gDv KsIeCrIFqfKC3qTRCnR0lr aCQaJVBjTFNyG1ifCjUviN 9jaFxmMVxjZjJcZnMyMFxw YXJ9fQ== Embedded Images (test code = [id number]) [facility] [id number] 19:23:05* Test Item Value Reference Range Interpretation Comme nts Case Report (test code = [id number]) Surgical Pathology ?Case: [id number] ? Authorizing Provider: ?Dominic Keita MD ? [...] HPylori ? Final Diagnosis (test code = [id number]) [id number] FuZzEwMzNcZnRuYmpcdWMx PHhdmlLpGCyhuQoaXZB0ZR SeJM7vpMydqOp5yEfzKNUy tdT7zRBlZPbjg0msNPT9x9 fjjwyiRRRrYTeiNe4isXNw eGrvKaYkRENtCBe0uE63MZ PlgX6ayARgQDl2ADOfxFOo qaIvMtEeAPVicXGhcVL1DE JpYY5bbwnjBDvmHXtwRTNa ftS6CYPmfHHgF9JmDRSyIM 4uxkqvDPR5IHhvXQZkYRE1 JqVcUFXeb5Etkbj3JxVadL FyZFxwbGFpblxmczIwXHBh ftRBRnYCGR5ZUQAAEMAIQ5 aZPSOXZU7VSYPIPcuueCNa IKNbNWReYEXLHN4DJINtO9 oPLkQnOU1OAOXaUKRgbNYf PFVzjoCYOgIRSB6DJB8GLS wgQklPUFNZOlxwYXIgICAg EOQzCBeYG6VHBYZgKMLXN8 TBCAaHZNefAt2gDIQZQC2D Q6hZF8WKJDUPPZ6EFUpiPL MgLCDyFLIsEG5FPRpbVHTM TK7JLNZQGUSNCCgNIHMOSG SNKIzURMZPA3UKVOgDSTQe qgrdNLFqRb1oK2XMPXASIX wgQklPUFNZOlxwYXIgICAg UNXrUNPOA5ZYIwGUPP1VX2 8VYJIFVWVWOI5CYWSLQGwU TI4JYMUOXRYJSJNZY7YidM FyICAgICAgLSBOTyBFVklE FT6HZEMROsQSQCvQWLKsMH lTRUFTRVxwYXIgICAgICAt KO6YUIshHUGIHO7EFHZXHa dBTklTTVMgSURFTlRJRklF ENFVPSAIAZ4EBd1DIWKJXt xwYXJccGFyfXtccnRmMVxz b5McI2FpSnTqGFhrocSpJV DxHnlcsvpwNXAxKRU0maGu DTByHSoqGKFwEKloLe4okS GnpLswUcGaSKUav9uvpbQX XTegHbEwF962THBsOYowz8 juf8ZdNURyiCKdj3E3PMIX psbdeTj3e6axYbVxCmF7uE ExEMwtG5agooAixWEaZ6Io gOTfoQa5eJzyW28as3D1Zs puN9unVOGeRDXcF6AiEO2t BFTgKol0JNI9NNR9PVGjFS CgM7KbYF8rPMFdcYMwDRj9 s6gteEjwIOEjSXD6v9eyGR snqsN3OD5jjr4neWq8a6fg czEgRGVmYXVsdCBQYXJhZ3 UhdLxoEy3pnLi2iDfrFaca WUI5Yrl8EL9kfr50zqt7qU eaWPHtbtjoLeC9OQjuCQVq yjlsHMm8TPuzMZWaqLH4XJ MtiIQyS8GvOBXuBR6nnvs7 PLE3DUkyCMWoZtV0LXHksV McXSXebUkyQXxdp274VXN9 SySnMG1oX7Qvc2R1nL6awB BmWJBmtJUpWeKbUAXhlx1f uNFeWHmxt3KjHDZ5nxD8aP EsuRNoLHAnWR89Mmhjv9Nj ApgvPDU7WVOhxoEpe6Nui2 ksThMmjaNrN9syN2PaUDAb LLDyIZOuMqRhhqAzc4Trl5 XzxEYjpNd5d6sdRGRtYHRn xAsee4hiIRQ2CMShX9I5jN Zcs1qcXZkkAZXtsNY3xjJ1 WBIosPRqZ8IifC9yYEFgDF 9siya0h5tsBVL2PEsmCQPs LpO4qrD4UGEizRKfQWQnzS ejNUbjd230SZB9ZkVqKJKp g5CrV4PfiLczC64daAyiI0 0nDGMotVhakO3siEsqpA5i ZjBcZnMyNFxxbFxwbGFpbl xmMVxmczIwXGxhbmcxMDMz QRzvS4rdFnIjNVAhpAypCR iin0RwLHHvBEJcVxtxpbPd XHBhciBJIGhhdmUgcGVyc2 9uYWxseSByZXZpZXdlZCBh wRble2CzE0sfAY6yR1MjcY TjzdKalrNaYLgrGCYee4g4 hFVpuNcbd3TvdUJiQR56ed LcPCNeJFB1JVGbo3bwJU64 rostXxFxyE21pmDtegGpWH Xwy0dhJ8qkqOHdm6Vhr8Qm leHeAUvvs5ZpBW6feULnoc drcEH3WZLhtVGaelVpiyG6 iJqmXIRmdM0veX4exAfqoG 6mJiObYxMvVLeaPV4bNACt I4iakGRjBRNzUFYqQ0jmCn AsjJ1szKkoIlalruU0KLNt cn19 Clinical Information (test code = [id number]) Shivani Schuler is a 47 year old female with IDA1. Gastric polyp x 6 r/o adenoma2.Duodenal Bx, r/o Celiac disease 3. Gastric Bx r/o HPylori Gross Description (test code = [id number]) c1vjbXYhPUQcmFLLMUW6WP LlWL1vlIsyvAq3hHxwGHJh twF5nXAvNNynq2wgTHM9g5 dfroTEIjhgABUwYO1xXHhs SALqZK2iOoCeWGLhBgNyRT BhcGVydzEyMjQwXHBhcGVy oIO2QIJwYN4xebpjRDpzWJ axCQXvxwN1YUNxwYYeW1Iy CCAzKN8ykhikHQL1UQNAKk kdUe4cdFEnxPwcRpKjRyGl YXJzZXQwXGZuaWwgQXJpYW c3eN3DAtjoUUO3HCNWGgsc EnrtbDejd1OhfOIuNLRgVU xcaWQgNTEwMDAgXFxkYiBP XaArHqL0Vpn0ASD6KaJ7NF r0CIQSGEIlIctjVRR1SgF9 LSv9IDAbEP0lNRqfzVUiXG dpMakcUXwxK645MGrqWJMy R6BgH7SwVLgdDhUhQAslCA ClFJIdNHmqXLPeJ1QOKWSi PGI0HfCwOTRqRHp5EZkhL7 IXUIOcOZKaRgQ5ZOPoXcX3 SWu1YLVRGy2aJUllUjPrHZ j2KLB9RMc4MyDjDTIlUpWa KNCrSHLtWObetJUyVT1dsK kxCYTtZC0DEVDgROqgALAv NcQxC9VIN1aLEE5lUWsrfE JjaFxmczIyXHBhciANClxw RKLkBC7QCMYqOFtmUVf5yc CaDSFxGnMwIITdQ63gk4ZG n0LdOM9YEJs1vbFgpvnooZ 5rNXEkzdIdHTcTlMYvoZ9e pyMXBWyzONWsR2KyvoUoYW hhQPYvpq6siImlXMpiKsWj bGVkIHdpdGggdGhlIHBhdG skbjRvM1L2nwBjJJ2aNHPN PPThkR2cQYOxEFVho4MqlS SulXbdN5VnwNUeQmFvg0e5 bUL4PIAioxImDRPmmOHnJS Wttx8mJBjuUdCiD2S4UNOp UCSfm55oxMU1sgAnJpDbdZ e3uIWzJEH9CR4fjJksrcPm w9r1hX7uRVKrd8P6XHAsp4 H4CQOaljFzqPJtjWGzXUYh NS9omiOgVD08USQnMKlkCA hrMZJ3FYU2BSFcpMSpk0rp pwyzPk6gNSnzPO2cXWxgTM 22BRWxWPiuLUZkS4KoQ3F8 SSbkWOJdXRDhtGVnpY2xxe ZkoyVdxYj9RWMnAGI5nSVh qRydZXDdTbpsaWO8RGTpEe NudvLps4RbrYg1wGNvAKlg TFYxkR6suJ8fZPKvIOAztl XYXlpwJTTfTBflp1UaDYqq cGljWHNhMzAgDQpcZXBpY0 5bv0SIu0Kdy7cfaUtak7Ak uEHxUZ1geXZkAH3Vf8hrLY VtfHIhQRW6OIjow8noSGeg SPZ2XWBrQmRuYUSpIG0IIm ClRUqgIOp9LBtaESn3WSl3 EO6BYaHaDRLgAjd9GpW9Yk ZoFMy2XRbmYN2UXOU9XWDo LFVlSZrjULK3WDAhFWv9VY IgXFxzcyAzIFxcZmwgXFxu X51ueOVjABbuTpVcKEbvtS qnWSCfITM6FF2IIQQwAsRz B1MPK9pIJW1yXhvxxfDoEX BhbjIRHceyYYLmMQ1APUBx KGkyCMj4avNuVGQmUnLqTJ MbO05uq9XIp3WbPV3EBOz4 jhUemphpbO3uJFDjifBog1 IzMFxlcGljWHNiMzAgDQpT aJVudO2lzkOZWPlqDXKkG3 HwayFsRKmyXWPrey9hjFcm IGxhYmVsbGVkIHdpdGggdG hdWRKrfFdrvmSwX1L2baWo MU7fAZZYTOAsrF8kKBZoLD LwYTJeQOFrqQ6yXLO5z0Wn bgXkUVKFJAMusHxkXI73dP BjZWxpYWMgZGlzZWFzZSBh crUocrOnn54spvZcf3SzRK 5nyCllVGpICMlfOdMmKD5f UNYvqiEqq0FuLM9tBIJomB QwWRFbubqhpHEiCEi6fHBl YAEjRgJcaAfgq9FdAQUeZZ shFW57kiXbPT2tAGtsMU7x JExsFG8zWHZvQPFyXTMsJh CxnZZqJgAahLYdTsOmX32r AoVUsWVna3YeI5egGD5gkR JsZrqdwZFeFNNzjKbgf3Jk lITkMTYik6YboEIfMKajBV 9wOWX0Jq2qoTNeYXAibkR8 e4VpCRuqXOWfWibrAELwJF exi1PqFDVakXEMl6HqUY8K XHBhciANClxzYTMwXGVwaW NNf0KtFFMDMkcduVvfGiZp zOGxRmP3SHIdhGRyUUI3IP 4lhZroCYNdYMw9GEmjVDTo Z4VfZ8VxYWehLnNoKNphCR MgITExDZhbCVHvF9QCOZCy UAQ5TtWtEDJpVHi6VBrbM9 KYVFVoNHIpFtX2ICL9DoH7 PPo4XKFRDk0hHLwkLjCfPH ZrWkR3MBo2BuJhCEWeHsXh RXUnWXOaDQkhxNLpGR6hoL hbNYBzKGBoJHP8CZTagSTP f0OkDFZlJAkbSgVaSXQWWT WFEE7XChSBUWOkXiZwiFHb LW7TDVNjrdEjMIflhDqvsP 8mhLGjR2ojBnXxQfmpwKkp TmVzdERvYzEgDQpcbHRycG FyXGxpbjBccmluMFxzYjMw VZTkuDADt0JyJDOAFlCaSI NpbWVuIEMgaXMgcmVjZWl2 YMNkjG7zLr1vjWNfcM0vfM OxMOntEXSpn7u8iWM9cPPx hKQ1mXWvlMncJhSwTR6elZ WxUYZXBB01pLLilgZtOISi mB2aMKCmFYBdZWR7skooBN QKJTC5eFOvx4K7UFhcEZR8 nR4vaNosLrXdU6C6UXFrGR Xaa65cnWP7wrWmNqHpNHAh pv9gmZ0hIKpqtwThjGtpmu Ojc2O5UTMdt4Z5AXDwujCj cGJlwXNsJLBfDqO5DAYcEu G0JMWlCPDkzWYeGHPvOA0v VGhlIHNwZWNpbWVuIGlzIG XorLMnohAsWTZwiu53S5hm NABxtI2gf9viDdOyLXPnQH FfxFKblPW2ZSGwlC2htY49 oeEgbdGIGY1zbXSgAQ0QEH NiMFxlcGljWHNiMCANClxw NBSpROtvh1QcGNgykJafMN IuRoJkOQsYlZfxAUMQS7oh jEVuRUwsTWUPIWnHR1QZBQ 6CKXAwqLMTUNM3WV2qJLgh RLDvD3RaV7AonnS4k8dkwL wxc6GmdSKpJX0osXSuGV3V XHBhcmQgDQp9 Disclaimer (test code = [id number]) l2sidQGkNXTgs5qcJYWygB FuZzEwMzNcZnRuYmpcdWMx UBmrcmQnFYvib7PmU8QwGe AwMFxhbnNpXGRlZmxhbmcx WFQlHAD7goFzNAHzLYmjKR KfFBlgGn9dkKNpcSgzNzZa LXJvl6goczWMLRibOySrL4 83OXLwABdoy1nie9DeFYBo xLKbm6X1CGAMpcrryTx6dX fgZ94bb3T1QoosT6odEFJz DVJoW5EjVF1jGTLwUjm8AX D0VFU6ZYMhUGNlT4PrRY4j EPLyjPMaKNc8l2vtbIwuMJ EsNBX7n0vtEJsnnwUcKF6i rs9uzUn7f0ddowGrTLTcVN RtrWKSQVMpE1RbdVzrOb0m kTj6pTifIausAHN2Fee0ZT 7yht03gzj8gRrhQODtqiwi GfR1IZyuJEChvjajOSt2FT nxWPGrfLN8EHXlrGMbD5Qn CSBiLT8lhpw8TGM4KVnaAL AxFkY8GPUfkEAkYUGjwUnw UZtvu858QWL1UaMuWP7nN7 Pdx5N4sZ5vaSSkQWOtvYKu MbJdVGXjgb0niTBfWNrho3 OxIOO7qgP2cDMrrZIzJJNn PY46Iqomh0YkUcfnv6TmY3 8uwWU8WHewr1mrHW7ePuP1 jkKjLRwpv9ospL6yLcT8VH lfQW0cGT6aKLJprU9zuyoh XHBnYnJkcmhlYWRccGdicm NgLr5sfXzqROW8OEvdQ4fv xD9hSrP5KNuvV9wjuC3vJI u9XEdjnKQ7YQTpzH5pOK8t hnbxo6fsOMjxYRvyVMMeid L5lfV6OYHcqGWvH2AlkC5g VMYtIY4wvodgo1zeKNT8OC sxEJLkUBR3YkIiSNWfe8Jn kda4TbMxb9VypFVdQXirT3 5od424AFQxolUsR4plpCBd ctqbgHHyzsncYVcawfA1ER VybgXsb2IqIGGdWBJ7FCwh RJtpdEHfBHDieDksu0mbA4 RscGFyXHBsYWluXGYxXGZz MjBcbGFuZzEwMzNcaGljaF kqVEvvJyHdIVKiDHgpO0sl XjGqG9JyZZCxQcPgjKUcK0 ggVGhpcyByZXBvcnQgbWF5 DVqyZ6q3CTHanbVwkVl1pv ScIxKbHBMqYJL9UQudlPZl QZGyp5SkefcyyPFyFz1tbQ SlJLXgkR6vNJInIDYoIYxe PB5jqRg1MOPKyIVkqPTpMs GQZRTyEV73veJeSILIbblm u5U3HFvaCQSvi5QswNRcL1 grb5MlGKTug37sJQ7qc0R1 y5krYLC8HK7be5CgOXKbnO NrzNBnQONjc9Phggyqu3Gu PBXwpaEey3LaPDXotaSugK HsPIEyapIaio7fvxZbMTDb RMCfZ9MtvypxwOqybrNxFR Ftcc0nqbWsFHN1WHNOZGMn JYHkp1QavT6tcZJOBRT8jW Tacg5mmhGXmVUpSJMwoz64 JJHwWW2eY3qwAPBsCBTcic XgkODmh0XdJWQtbPH1iJZc XD5YTyABn90hCVLqRIXPeb HoMVEthJdgnWC2voW3mY2f IChGREEpLlx+IFRoZSBGRE TxYF0etgXxj6TofgFggSuy KICxaNNzw8IraBDrc6GxqA ofw1MjqOMxnQCkEM8qVPSl clxwYXIgVVRNQiBMYWJvcm H1v6LlMZZzJNDdHVA8dUyt kak8GFJefZ7yUANjY6lrqz mvAVksKSKnq0HnmQ7obHJW kGArm2HkcVUpxSFLmHOoTG 7cpgXaPLsECBgWRTX3iuOz MGCjk3RvFCytE5saK47obE tisAd6sUR4YXY3aO0jGvk+ IFxwYXJccGFyIEFwcHJvcH ZnMBSajOeejlHuK1BbatCh rL0klZYrarXtRY7rLU0sD5 F8uCUdYLAcuxUgs9xwHHau dmUgYmVlbiByZXZpZXdlZC Rzz6IbFLysZJG6XSznonGl bmNsdWRpbmcgSCZFLCBTcG PwwZJvEYB3ZTmuvvXjavWx DO7wtA9luWhkmB2ekYHqvK Q1jbywXWRzSVKtqFacJKRe BF0iaNtqsJ0aSlPoAkJuGH ylTQ3oEOWhZ6etoVYpKZDb URJpR8hiGaZhlI5cmUojBD xjZjJcZnMyMFxwYXJccGFy XHBsYWluXGYxXGZzMjBcbG FuZzEwMzNcaGljaFxmMVxk NgPfEOBcINbjH8cwHuJhV9 DbKQCnSaBnaXPhG5jgODyu CWC0LYIlGH9tbLAtMT11iB Pzu8jrMXdzfXzdyk4kZ53v hXJbVBfgiRjuFIPzi46cn8 GwHJNzfjCuqz8fXHFwwnV3 tC1eOBZdmVlvDGEyeAUlQT Xjz0IzXJvcfPHqbtMvBBlu CHGcCVCahZGxivB9rjTstq GlgfMnDNKbeWzmZJRfh7Pm BWCdCJqkl5Jdku4kcQMzMM WoqlCGeDsomDGhyX5hY1Pa BHWuZFAbvk8nEHOmpC3rPK bsi1JlgjajIFFoUZDtJKJt pnKfto9cCEYefPIFSF9OAL dmnQRkk8CyfmIkS6yIKPA2 NUQwNjYwMjgxKSBleGNlcH UzXMOdrj15DWYtoX1wsLye BTJwvP7kyE1wuIlqiE1vJy PzMsUpQBsiJO4pTJDeD2eg rHWfDUZnFFZvU8teHjCamX 9jaFxmMVxjZjJcZnMyMFxw YXJ9fQ== Embedded Images (test code = [id number]) [facility] [id number] 19:23:05* Test Item Value Reference Range Interpretation Comme nts Case Report (test code = [id number]) Surgical Pathology ?Case: [id number] ? Authorizing Provider: ?Dominic Keita MD ? [...] HPylori ? Final Diagnosis (test code = [id number]) s9ydqXJwBAVgu0xiQSCayA FuZzEwMzNcZnRuYmpcdWMx OQqumxSsKOfxrVdiLQZ5QR DeOI0ybPrppPr3pYtcZSQd yhE3aXTqETxhu6ycOFU3d0 trsbclODSrIHxkDv0yeCJd oHopDzZiINHsJCo8bW79JT NrdS3uhPMfFPt8BTQkqPFk jaOxGkAtRPOlcZSfkMN4JG NsQD2ogskdOAtlGZasUOTx jiY3ZMFlrPAlA8XpMKJyNP 1yaoipWPT5JXbpJVGnWFK8 FiTdQHDlr7Hhtdf1RkAvgE FyZFxwbGFpblxmczIwXHBh xoURYnQYRI7AGWFWSNISS5 dZCILQSS6ZMBLSOzsudPEk SMNiCMOpFBLMKQ9CZOBiE2 cRKuCdBJ5HFBGmORGueSKx PQNcspIHMnVTLO9ZCE6MVB wgQklPUFNZOlxwYXIgICAg XLScYHlJR0IWOKLkOYYKZ9 PEDBhJVAieBk5sVRCXAS9L G3dVE2CGZSTMMU1CVKapFG QjXUOeLXHfQM9UFKaxIZFP RF1GCGYTZEDYPAnDBKBBBC XRJIzUHQDYK0GQLUiOALXn acweLEIpMy9lH1IQIPSBIS wgQklPUFNZOlxwYXIgICAg QMKzYCKHL5STBrKRPD3VU8 0VRSZEWAKXKM0DZIXLQJwM IF6BEIZARVWAYIDMS6EicC FyICAgICAgLSBOTyBFVklE ON2VBFHAQbPHXHyMSWSdIU lTRUFTRVxwYXIgICAgICAt UY6ICYlhUATAGU5AKPQZUk dBTklTTVMgSURFTlRJRklF AEZCKMTWQV1SAq7PKTMBQl xwYXJccGFyfXtccnRmMVxz u7RbI6NrXwTnCSuxrtRhPO KvJpbkekztHJRmCGD4nwIh ZTEwATkoKEDiIYdxUe9xgX LjiNnzMnSpUEVcs0niovZU NYjgEhDiE178BARqLNlaw3 akv3JnVLPvwPEzs5V6DMOT fbcruWh6t5znXgNaEvP8uZ IfFXetP5hbduDvhQNmP3Qm bDVgaRc0tYyiY54sr5G4Tt pkO8okEULtPGFuI1CnVE6s VZEvQcv8IBY2BBV1ZCLwXL MmO1PmXC0pYAHhzCCmROq1 v7ejuJgpPSMcJVQ2h4thVL tndtU2NS6arc1vgBv2w5na czEgRGVmYXVsdCBQYXJhZ3 CvvLeeHk6rpRu8bXgdOfft KIJ7Xqi9PO7wly76yyk9mH fyZDMbsjzeOlN9SUogDFHz lmmoMGe8GZkcQUHvrOJ1NS FcwGYaI7UsEAIzTO3ifen4 ZHZ5LZteWVApMhO5ECOyjK GtGLFapOpqJDcyy695GMR2 BsRuGV6tU1Xnd0T4mZ6iiG QwHUChbLJoKlNiGQKckv8w sDAtDBtoo0FkUJG6qjW8tX OhmHOuAVGuGX17Zzzdc4Dg AjgbKEI4JKCawoLhz1Msp1 dvUqBdlaWzL0csM2MdWOIk YILuWUQaLxCaakZnn2Qss0 AsmILoiTg6a0ukQVKqWDQh gDmjp8liACK9DJFjY3W1tY Rmm0uwXNzlRAYoxRG7lgK2 ORKbvOVxA8JegF6zUMYxJA 9weah4y0mtZLE4RRizVFFl HzE3ssA0EOHmhHWjHQCkhO mfLZabu388JCU1RkVlXBUd c9DhS1VlmKbsV16wqLbsV5 4bLHShtHbjzM0mjKwhzQ4j ZjBcZnMyNFxxbFxwbGFpbl xmMVxmczIwXGxhbmcxMDMz ZQqhI1ntWyQxTXBddZqkPB jte2FuKLYdNITgJmbgveTo XHBhciBJIGhhdmUgcGVyc2 9uYWxseSByZXZpZXdlZCBh sQhpt0CzL2dcZW5xT9MrkN IvqaWxfhPzMAvfMIMfw6b0 wLHjtYolg7ExsFJkNJ33hg HeKWEmPHH8DMIig3mdMS25 vhndGpYehH21kiKoruLzTG Zmi0ecZ2yucBBkn8Mos8Ux jbIyFIjoo7HkOP4wrKQvyy fbuRN6CZQkhEUsptEuglM1 iZsrBJBqnF0wwQ6foIsiaL 5qAkNgDvKvKDjlSG8vFLYf H2faxFKaEBTlPWBlW4hsKa XrgX3vfSbqKicadkF9BESq cn19 Clinical Information (test code = [id number]) Shivani Schuler is a 47 year old female with IDA1. Gastric polyp x 6 r/o adenoma2.Duodenal Bx, r/o Celiac disease 3. Gastric Bx r/o HPylori Gross Description (test code = [id number]) s8azcWJrJVTljBHZJTB0LT XwYV6twRsimRi0iEqeHKRn hjO8oUYqZNluc4pgQVL5t8 mihsBFVjujBEEuGZ5jCFrx BCRyRW3aXlOfMXEqVvJjIY BhcGVydzEyMjQwXHBhcGVy uCK0EGKsQI2nzabaXFtwDV lkEYOxusR7YQOkuYThH3Mc KNDrHC8rldacVMP2GCTTFe jfTj4zcRHtcJrdDfCyJfOi YXJzZXQwXGZuaWwgQXJpYW z6uU9TFeryBTZ2YOVEIpfw LqduqRnsu8MpjFQjPYJhFA xcaWQgNTEwMDAgXFxkYiBP CxTyTkA1Fji1TUJ0XmU6XI b5VQVNLLWgOrlzOZL7SlG6 LFl7KFDfTN9dLMpibCRkHR vlHkplVOisQ448JCywQIYv P0JbM3WfNYtcNtOoOIlaJE ZvUNJiFUieEWCsM0GNKGMw RUR7AnRgAXApGDf7WExpG1 NXRUOjWAZzWjO6PFTgKzU7 FLr3JZUKIx0nPSyvJjOuIU h5SYI0MLi8JlHkSEJzEeMm CVFpJCZvBNntaYSqOU2peR hcLJXhCP1CXOGhUWdqXNZr LhSjP8BFU6sNIW3ePWicjZ JjaFxmczIyXHBhciANClxw NHWbRH3CFECjTVasNOt5yx KyONQeCiPtOAEuB25jd4WG g8BbJF2SZGu3xaLdusuwcM 4tRBGvtdMqBAgZhFCsjT1e gnOIYHbcWHKlD9SgpoAlAD vvPHKtog7zdIykPEqjDkTz bGVkIHdpdGggdGhlIHBhdG kcldFfQ3Y4vnSbCJ1tWYAG EHJhvI7pSGWfCLRqi7PcoG BafTnfD8QzzSRtZgBov3j8 wDW0TNBlbtQbJTMkhWXdUB Pgsx4sVSoxTeBeN6C1TREi LMKkq78rpMI0twMbAkLvyJ t0yXCtBIQ3GB5szEwblcVb a6d7tX6aTXRbu8K5ZJWbr3 N7ZQLxncKkfMVseUCyTPJj TV3cttIvYI63IGVmJYgtHH blWIZ2QGN9SGZihJGkf6mh airqXl2xSWjtWW2bNUyiGP 37BIInIIewWKKaQ9CyT6I5 AKcnRYMbJBFfkQEhkQ4nod LdgpLyuXk6QICiNOE8sNTg oBsrRYHzJbtzqUN5SSKpBc YiewBsw4OaiIl7fPFqURrr DAGibR3ksU5hKZBkPIXkfx LZColuFPYfLYmco8GlPItb cGljWHNhMzAgDQpcZXBpY0 2fr4IYf0Qig4qheBuhb2Fe wMMcMN1twOBbBU8Tz4auZG NbtNElHRK1IAzmw7ijJOje RDZ0PJOtWoYzHMGqKX3ORy HtEYfzVVe4VNygBPa8GTr2 VJ1FVpLoQFJsDya7MeR6Po NjYXg7HNzuWP0YFSO0LZOw BCBrNUtgRXO0EQDiFZq7GV IgXFxzcyAzIFxcZmwgXFxu Q58odRAeTQvvHzFrNQnwdZ bfCELzIDM5JF3WDNTeTzZx S8SEA7fQDX7aXkquohLaBZ QwmoFBZmgxPTSvOO3NTEHb YOquHZk2vcGhITKmFoXpYN EvO26yt0THg9NnGL0WMLx3 yeZmkhlrqT4gKMIgjrVbq3 IzMFxlcGljWHNiMzAgDQpT iHNsuQ9xmfWPBAxhDANuE3 ZzjvXiUWaqAFEfcl2zzEmg IGxhYmVsbGVkIHdpdGggdG rpKMYdhCebxxNsX1N0ddZi GB1sUUSNRNQmbY2uQKDlNL GsOUGoTIXqqK7oWDA0f5Pk gdXdRIUMZREccPpgIM93cN BjZWxpYWMgZGlzZWFzZSBh seBgsxPac71dmoOzd4AdXH 9itYxsXDnSVOztPyPgOZ9p BRKnzcEws1AjSA4eTUMtxZ JvKWBpegwiqTPuGTn2tLZc TLOmAiYnrHueq3TsYCGoCT ytLV63amNpQP2oYXwzIG6e NEzuPJ8cYQMkHHTxGCFcAx XixIEpIlCcuUOrNpJwF38a TrUHyWFea9SnN1xgEO8pvG DeTavovEEpWWMydBcke5Lk pEWpGTDlk3KchPHtGCknCD 6yIIO8Pw2dzPLmWPDtpsJ3 y3AnOFbcGLLcSixbGUSlZO ppe0XhWZKxlMACs7XyIF2H XHBhciANClxzYTMwXGVwaW IVy3OsDAODEdmkdCnwKzPz hEQxKiW5KHDkdTGwDUV6FQ 2koFtfGQKkPGh6IOqjTUQc X9OtI3BiEDsvGjWaJUuhQI XuEWVoZZuvHRGgQ5PDIJKq PKB6JsJsKZWmRYv6SIawG0 GBMDFmXUEsVaP6XTM8DyC8 UWl4JEIJEg8lUZbcZzMuXF GqUuH7LDc9AzUfRMNlZoAm JXKsZLYpAVldyEUqFF6tbD msVYKlDLAkVHG1TEJxrADR z7NgLDNqIHlhBwKwVUIJNI NRNR5YKpHMZBHlEhRrfBSd OY0VGIAiumLiNXuawCggbB 1abRPxE3ozOmTrCcvbzUvl TmVzdERvYzEgDQpcbHRycG FyXGxpbjBccmluMFxzYjMw OYGtaNZDh4DuWFVUBfAgXM NpbWVuIEMgaXMgcmVjZWl2 FLXawG0rPd6hhMLuwC2htH PhJQmtGMLnw1m2kAU9bKKd tRH3bMGtkVhmLbAjHX6kzY OgGBTBCI08vOJgzdUvOUJh wP2rZICdNXIuPYU4akuhVI HWUCY7cHWui3P9QOdqXLS9 fK9mvVbnGhXhS4B2AQDgDS Let03uiTA1thUjBcBuYORe mi9scF4wEOsuwaZbyGgdut Dgk2G0TOMwg3J0VSAttlJn qTYfmLWgSANbFnT0PDXuZb Q4SBTdNKMvrYDtOQAaUP0t VGhlIHNwZWNpbWVuIGlzIG VexTHjgcMlWOGisp97X2bm QHKguE1fq8hmGbBfAPFoNR TyyNPeuDQ3GVLgiV6qnV17 cyGrrgWVQN3rlTGyWC3UQN NiMFxlcGljWHNiMCANClxw MXQaUYkpk9XoQJsluMqyWA IfHfVoCKpFqVzeYGBWF3an mUIwLUqoBHMWBEsUM9ELRQ 8MVYSdbMBVVCB6VU3rAXpk PSMnG8FaD1RxjlS5u4hvnC xmu8MigLYrLC1ezROzNE7W XHBhcmQgDQp9 Disclaimer (test code = [id number]) k0edyNCoFEDkr3ijJKJzvI FuZzEwMzNcZnRuYmpcdWMx NVnrwkZfJWcrd0NzF0PjVk AwMFxhbnNpXGRlZmxhbmcx XILpSES4bgXrQPSmZYzkPQ HiLSgoZi7fhIYbjKrgKnGu IJIvd0ehfuCAXGcoJaWhY6 81JDGfOQwzl0zso8QlIOQg fTLse2A1RLWGmnzkvDq9vX bzH32qc4H3VinlV9ezRQDv AYMoW3WyTJ6rPQCqJkw9HE J6WIO2IZGaNVXkB5RcSV9d NWQjxUQiTTr2y3ertNouTK PqXIO5p2quRIolqhCxWB1k lh3ryQo5w1mqrbFsKNLlCM KbuVBTZDHkE3IqtZyxNl4n zKk0tWxdVpbwSFE5Rmz2LV 4tgc90snr9sUsrBCTqmmus LvX6XVxsSQLiyoyxOGy6SN koVNOykVJ9FYRdvWNfU2En CLEyGV9gljo3AIJ1OBxiXO AaFlV7EDJpvGKrLJUhbYlx WQpgm284YNK9EaMiFJ2tR7 Zgc6G6pM6woUQiHXHyqOUn MiYwEIXtiu8hkHBsUDchk9 AqHVR7cnN7rUEadOMrACUq GN84Wgyte0WjLrnll1MxZ0 9ziQI4TAsuh5imKK3hRsC3 qpVkKNmbx1khpG9aHsF1XF guDK4jRU9aSXCtxX6aaezx XHBnYnJkcmhlYWRccGdicm UpCk9hxMhtRHB9RLqpX7vc bH9pMfN3CArbA5funF3fBG r0FFcqtEB7ZZTcvB4yEV9j fqbkt9prQRcgRRtjYALwtw F6mxT7HFJfgEFhP1InxF1i ABSrLT8lvnass4vmLHM7GY unMRTeTSD9RdXtGPSkm7Ai bux5PiDld2CuyKEnOLcjY1 8xs551ZWXhyjOcQ0nwmLTd oltouTVrrgqgOBntxdZ9LV HskeKzu4ZnIYMfBQE7UQnd BHtgnMDkUQLtqYzhi4gmX6 RscGFyXHBsYWluXGYxXGZz MjBcbGFuZzEwMzNcaGljaF khFAlwPpGgIXJaNUeyM8od PiXoA5VbMSUbVjSnaACiB3 ggVGhpcyByZXBvcnQgbWF5 EIrtX3u8SZKaveDsqSv1ug HpQqXvTFXvHJZ3USahrTOq BYZyt5ExjtohqMPtZy9xmQ NsKQDugB2dMKTaDBWlKVzx TG7liMj8IHUGyTSrlFWyOg VLHCJaDL94svTmUICSwdvt l6N5YDizWEBlp0ZiiOBxT3 oxz7NlONFjm01oZQ6dv3S1 h5vsJMF0NK5ox8JoBSKdiX VccGPaSAWuu3Mtzbsmo6Of MMYqdwZvm9PaABYqpoSbzY HdVWQpgpDazo4shtQjRNIb ICUcB3CbkjdncUlhuvAoFE Edby9okgVoDLM9NTLZFYCl RGBqb9IwjA9ujULNXHQ8pV Ubyy2sxbLCiIYzBYAmlc01 TBTvDA7bW3gkHJHqDJQclo QrwHBbi5EmATHspXN5qRAh WH7TYeHVp86eMCCnYHHTua ApZYSphOiqyHT5yiO9hL8g IChGREEpLlx+IFRoZSBGRE QfCS4ubiAns0ThofTnxGpt LEGweYNfa3PlrLRjk9BcpY pnn4KdqUCweTUvOC4jFGNa clxwYXIgVVRNQiBMYWJvcm Y8q8VuWGJlWDTxPGQ6pLqg srf1YGIegK3tGKPoX4jkpq cjNSdpKQLnu4VkwE5pqVDD lCAun5HgrEMejKHZaIErCA 9cfhGuODeIZJcTXBC0neHh ABObh1LwNDcdF8frF59ysG pcuAt7xIT5DCC0iQ8mVcc+ IFxwYXJccGFyIEFwcHJvcH XuNXLtpWrtzcKeO6DbefWg fE9mqTQzlxUrTH1tEV3lA5 D1yIMrDKWlqvPwj2ddNWst dmUgYmVlbiByZXZpZXdlZC Amw5TtRCfwRZG7YFsockYu bmNsdWRpbmcgSCZFLCBTcG CsvFRvCZN4GQiqftTmstQt DL7tlN7apAfquK0zlGZheX F3krnpIEToPIMjgYsvJGLz BG2kqYpkdR7uOlMxWuPcDR imDR8vPOPdP0ulwXUlXANy VDRmV7qoPzJdoU5zsScoOU xjZjJcZnMyMFxwYXJccGFy XHBsYWluXGYxXGZzMjBcbG FuZzEwMzNcaGljaFxmMVxk WrZrTDHoHYseS0wzUnGxV9 UnONUpWyQtsHUpM6csDJuo COK1ZENkMJ2qqIItGP95zG Tzg6xzMBshsQvsoh3nI68g nHAmOFwohVtsCPEqf50ne1 QiHBYhqaDxqt9rBHJpudZ6 iX5fCWHvcRydKVZonAFoUP Jja9ExJSesfRDcflLmRLmw HHUlYNZoyYWqbxM6hmIicz UrxiEvDCYarRxiRFKym2Vx BRSpRBvvk7Ftec3ttZCkVL MptmLRnFbgfVUdnT8lO9Bi ESFiQUSmti7mYLIfrM6dGB wft5GppqsfQRMcXIQwLFZd byYwsx0eJQQpuUVHSE0PYL guaIWgu6MshuBsT8vAWDS2 NUQwNjYwMjgxKSBleGNlcH FtOVUrkw98XTIczL7ulBnw EZTxnG4oqP7dtRaccR0oLz LyDnQmJMwtLG2nPYTnL8jr dPYtNPMrPLRhF6dqGqBknU 9jaFxmMVxjZjJcZnMyMFxw YXJ9fQ== Embedded Images (test code = [id number]) [facility] [id number] 19:23:05* Test Item Value Reference Range Interpretation Comme nts Case Report (test code = [id number]) Surgical Pathology ?Case: [id number] ? Authorizing Provider: ?Dominic Keita MD ? [...] HPylori ? Final Diagnosis (test code = [id number]) k6guyTIhHGLtd0nyMVAleC FuZzEwMzNcZnRuYmpcdWMx HVwyucUqYYtsvYxmBHZ2HO NbRY3wlGldyOn6lZrnSKHg ieM2zXOqDXupm3lgSRR7a5 jlyvmkYFCdDCqyMf6ntDCm lDejCaHnWXZjIOg4sM30XJ FcyL6klWHwTXh8JVTpvUMd waGaPeLnUZRsmRRkcQA9JO IdKM6ehvqoORqaTKilVJHy iuF2OSFheWNbF9XgCGKsZT 9sgesvDNC0BQqiTIYcYZB9 AzLlJBMpw4Zrxex4LyNmgB FyZFxwbGFpblxmczIwXHBh ezCUWkYXYZ2FBCIXJYUKS0 aYHDYZXI3YWPIZDopdcZGf BWWsKXYiWFHBUD1ZLFFaF4 pNZcPbUQ6PADByDFYkgEAa LDXzrbCSInHKPZ2BND4AAL wgQklPUFNZOlxwYXIgICAg MEMkECsDB2QJOOBmKHJBY6 MXQTgNESshDl0pDPIRGP6H G9bAT3WSIZHJHX4YNQemBG KpAKLlZAFiJH1BGXfvQKPR EW8BAPTYRANSRHsGFCPSFY XJQItSHZTAY6CRAHhDJKBv wqjdLUMmXj5uE9GCCLOMMG wgQklPUFNZOlxwYXIgICAg YAAiTKMET6FGRlFWJD5MK5 4XDTIEAABKWF0EPHXVPMlQ HX8KFNBGKRYUXKTTR9DyxE FyICAgICAgLSBOTyBFVklE DO2JIONLYkCFHWaYIVCmTD lTRUFTRVxwYXIgICAgICAt SV5SRPrqZCUHII5IILBEQt dBTklTTVMgSURFTlRJRklF TSTLSHLJZY2JWb9CIHFRHo xwYXJccGFyfXtccnRmMVxz q1OaD1IzBnHfQMgofmFnZM IqFgvkmyvcXOFuDIQ2dvSu YAJbGXbzKPOuNKvtJh9koV JqcRfqTaQbPNXue3wpgmAH LAjqRqAlA024OSCnIUceo4 myd0KyNQHwgDYqe0K5OLSJ ryluiFp8u2phAxBgYeN3rM IaKSdiU4zibmGsrOSbP1Fr gPTjxMn5iHxwK23pm5K2Df zcO8edEDUjOVSnO2UcHN5j RDXuJbb3NRS5YOW5ZEMpZU DcY9QfLR2gYRAyvUKtWJa0 c1koaRmxJFHsSLV2e0oxOR ofnqB6TE7sqs8ipDj6k2rb czEgRGVmYXVsdCBQYXJhZ3 WjfZxqXf3slGl3iJixCsnz MLA9Ysa5KS1wng71zdm8qJ vuKQLczkurKfD3WTxiTPAe untwJAu6EKnwVYSseUN1BK RhmNOmN1IfRHQpWJ9ftot1 CHV6LCxsHXMuCyO4PKMmuZ AnJGVvbZilJDryh922KFN5 TsFzWG3oU8Uny5M1qW4lkW VuZGPbxIAoOaJwFESjor7d dGCtRQxpw0PmMID4ltS9oF PzfGCuHQKmTY30Cpzrk4Wg JyhfWWO8BCBidzTrj7Ynz6 gaVgYswgXhH8fjJ1YgFZQe UYRhVBDxLwAqhrZst9Kju7 YtoCFjnXu7f5xmHNHnVDRm pJgwz9ynUKZ3JGGoE6B0gU Mrv4ezEHzxHMUmtMA4zhQ7 WAPhtPArA7BjcY2qTSQkRE 3alrc8y3kbDFH6PAqiFYUy UaB0xaK9NBBwgVQcAUSeyD xmGYcpe487IMK1KyFgZHHp f7FaG5AzmVgxW85jzKuaH2 4iQLIzePzpjN0niTwsbS2n ZjBcZnMyNFxxbFxwbGFpbl xmMVxmczIwXGxhbmcxMDMz JXpgC4rpCbPfNAAszAarAY kax6IhVZAfXRNkMccdhpAm XHBhciBJIGhhdmUgcGVyc2 9uYWxseSByZXZpZXdlZCBh pIbet8TpS8gwKU1hI9EnqK HtwoYjdiKbTRtpCTFeb7j0 cSMxnDqam9ClnCHsJF08zm JxTUCfZJW5UXNzr0gqSO46 janfAaOecK41yyVfhsBkRQ Mcq6dfJ0ymtAJmc8Qbs2Jx ilUwUIyhv2BcOA3tsAZadk zpgNR3QPPofWWcscSernW3 cFwaFUBjhB1lhF5jlDbhgZ 1uQjTvNrRgLXkkMH5wTRSq R4gnpJEsHPXdVIZcU0ktKq FewM7dqWmyTgiohfJ7CTIx cn19 Clinical Information (test code = 9778093016) Shivani Schuler is a 47 year old female with IDA1. Gastric polyp x 6 r/o adenoma2.Duodenal Bx, r/o Celiac disease 3. Gastric Bx r/o HPylori Gross Description (test code = 3714063984) n1ocwNMgLJBynXOOTPB6CC NjHV1xkLgdoWu9vHwlZVYp xeJ2aNTdXHxri9zoKWZ2f7 hzgiFSStpeXICjJY1eCAzr ZQRgAE1sMwWwLJRvCzTjBU BhcGVydzEyMjQwXHBhcGVy eGY5PWVbMU7vqbulUEikCV xdJSGiwpL2QXLtqMGyK5Bk KJXkGY1esfygAEP0ZLOXTc qgSc7raGFrxFniTrVdFeEg YXJzZXQwXGZuaWwgQXJpYW j3sL2IPlezKWU9URXSBjes DwvyqLvhx4NwsXEcYNOvEO xcaWQgNTEwMDAgXFxkYiBP VeSeXuH8Wif8JTR4JfQ8ML f9YQWOANIyAmwcMBS7YwL8 EJy7FGEzNQ8uPGqmyZUtWK ogNdhiDQgpI558NGgqBMBs P8LeL6UuTArpSdUlVTozYN EkZQDaONjdUJIlC7WSYUDx GUB2SnGxRPHiTXl5RTvwM3 IPZTCrGUByGtG7OHIiRvO5 XFh3CIEJEm9mGZjoRqTgFM w9UYW4TSg3VpSrQOAwUpRf XGEcGQHmKQzpgKVuBU3jnP olSSJlGI5UNIRpRXcdZZGs LxNwQ5LCW6jTDN4pGPlpkC JjaFxmczIyXHBhciANClxw FCKkEP8SVQPgUZvvHHm5cx SmEQAgMmVcPGHrA92nw6TF s5JeND0HZJq4siWicnaucR 3lAZAvlgTrFKcKmUIzvQ8u drBKRRbzVDZhE1EwgkIcRW uzUULwfr4jiKlsWZnxLpJz bGVkIHdpdGggdGhlIHBhdG jufbUsS9L2rhBzIG8mRTPT GTPveX7mJVKoIXNqy1VvgH WiuJxkE4CniAOzRzGcx4e6 wVT6QNZzcoNnUMDtdTUeWR Mtkx9xYZkaBkVnT4N7ZYGt AWGwi00xxBO2hhHkCmDnmL h9tMSaZSV2OX6jcVlgvqAo n5w7xU5dWXJar8C8BKQxs4 X4OBTlfySzgVUiyZDbGVMs HO4qliUrHE39SSSqLYzaVC tgTIH4EGJ7PBCvpCWlw0lr gsoyIv7oMAxjBM0yRSuoNY 14HRLvXGxwEAClX4GeQ8E2 AGyuBJMgVYVimDChtY0wbu YpkeTpdTt1BRBeAOZ8rLQu wKhiOIWkQynbwGF1YJLaBg GztjXgi8TixLw1uSKtQUqc NEHabL0cvQ0vMFWeVTZlmt ZUItflRRPzYKoue0OjLDrb cGljWHNhMzAgDQpcZXBpY0 6zu6OXz2Nbx1zotFqvm1Jk pXFgTA0tdHYsLM5Xb5rvCF FqfVBtJTN4XTgdx6mlLSyb IKB7SNOxFlEaUHWxUG4POl RhJMvsRMq5EByvBSe9PLv1 QD4HZqZoQOSoOfv5WqS7Pt KvIRh8PYguDE5TBQW8XPPk IMVaUOmaOCF7YDIoEJk0KP IgXFxzcyAzIFxcZmwgXFxu M53wiMHyOXyuHuTpXFzciX psBYFcLBU3HU5OMEHkEkTj M4ZVX2wLOS2lNigyivNrAD VkncODFssyVCZiPL2UAMFf RVuuIHm7dfKkCARpYkRwRN RsM39ic3RSz0MxUI4BMZu7 qeAxvrounS1kCXGfkeKjc2 IzMFxlcGljWHNiMzAgDQpT oXVqnL9bjgSAUNztYBWqQ1 XjoiJjPMfbTCJksj7fiDts IGxhYmVsbGVkIHdpdGggdG qsURSffElwtwJbS6B4zvWy XB2nZTIJCMOloF6kVOOlVL DxWJOsWKVjkZ5jOYX7j7Sd ukZbVQXZIUXchEiyXY34pR BjZWxpYWMgZGlzZWFzZSBh ziNddgOxc03boyQrh7AhKW 3hsXleTWaWBKipZwIjYZ9c ZUYftlXla1KeEL3lRUUktX BcNJCgiwqnxZVfXAh2hNSp GEMdSaDlpDdik1DePIHhAQ saMR05onJpZS1uINbqFG0u LYvsGZ2qIYYaHMIpNPQuBh JivBKlEcLarJUcPzKeF52b KsFWoTTjs5LaJ3qnGG0ncE CgWptsxNUfLUKbqHocf5Hq qGGgWRBbv8GneBJqGSbsXB 7lGJV5Mv0hbQElQZFnszK4 x8SqWAxsYTGvUhlqAZMuVD nyp7FyMMSttTFDf9GzVS0C XHBhciANClxzYTMwXGVwaW RWq8ZsSXCVWcrbqCxmOyGw bBYmTrN0AHCjmRJuPDZ7QL 5xrMxyLOLdIFt3YUekXUQe F3PsJ3MdDKzvItBkPSzgXI YvGPPpYGjvYFXyW9URSBLc ZUV1EtNiAJPnGMi5SFklM3 NHUXIgUZKnSdJ2VAL1FgH3 BXx2KCRYDt3uYKyeIfYmJG UiAlI6NEv3LiUmMIRiMqQl ZTIwXARqDWfsuHRhRV7rgG lqJGPoNAFjYFH8MNSdbRZA e1ArHTMhLLidXlAuFYCCYL GEGQ9GYpRFSZMjOdKhqJCe HU7BYVArgbZySAkfhXrcxJ 4npPJxL4kcVzXcCktfsPto TmVzdERvYzEgDQpcbHRycG FyXGxpbjBccmluMFxzYjMw JFOvnEECp4HtPJKHYePbTE NpbWVuIEMgaXMgcmVjZWl2 QMFpiF2rXe9eqOBtwB7otX CuXEvqHUHvu1h0tPD8qBEs iHM8iMVfcHzmBeSyQS7piI VbIUWRJN35tJJvogXkWEAl hP7tVXGaSGKgYJN9pjdsNR CUGJF8kEVeo3T2ILkhODM8 uU7lrLiaXtKqC5U8PMWuZF Eqg94uqYK9knGtPfYvQAPp xs6lrO3uYQyixhQzjHdwxl Rfn5Y3WTByx0J3WUYzjtSo dKVbrGXlRUZeWqB3VMYbHi X4JRFzOXOhiYXmELSrWF9l VGhlIHNwZWNpbWVuIGlzIG GqwZYluhQsBDKrhr00L3gf RORrlZ9mz3bbHpYmAUSnVJ GxkSJppCI1YOSdsU3gdD53 unWidjCWZT3efBGcSY8SUV NiMFxlcGljWHNiMCANClxw YWChVNhwb0QsTKorySrrXJ JrEbRuGPnPiRjtCNIJD3lh lGNvITyiMWUBDIaTA5ZXOT 5TXOIsgKVBRDF0UY8tHVxh IYTkC9EdA7VtysQ8d8cvmD sfl4AzlUDuBD3iwBRmVA3I XHBhcmQgDQp9 Disclaimer (test code = [id number]) j2ikwXSyJIFqm0eeDMCekQ FuZzEwMzNcZnRuYmpcdWMx VCcwouWgRSoqg2SeH4GmXi AwMFxhbnNpXGRlZmxhbmcx JQQuPIM9kfBxPBJgLNqxDE TfPTspTr7lzRBjgFqsVsGj TCWns2cudxGZKLuxKiMhU5 14APMgCLasx0mbf2GaNXIz jDSdf6S6OXOYdirfxZy6sW iiP08ya6E7EhkbR4loCOLk FVBzD3QnCB3sAZTrGqb7HG B5YET5YPHnWLBwT2XaCG8t COMjjDVeKUf7n8mafWgmRW XfEDF4w2elGJtmcpLdPN0v in4orXz4w6jjdlRqDKMxNO RprBUIBIUhM3IwzInhBp4r iIp9pBqdKvynULE2Hce6HG 3mao57qkw6lTtfSELwrwae FoF6UHihMFWqscaaKEn8ST ljDMLraAR3MIUkzHXjP7Oi QCDmOL6uzpl9UFC7YHbkYY LgObG3QJAwcGAiAIKyqBhz UAnou931MPH6HtGlVH4aJ1 Rhr9F1kJ5koLQsXLWdnHOr DaLpMISoxb6ksYGjAYhjg3 JbTHV9acL2lZBmcNLhXKLh RV33Bhyqf7GiPjius2MuX3 3biWA1OGygb6glRL9mIrF4 khTaLNgav3oouY7dDfY7IR ikTO9tAC1fMOThlE0mewwo XHBnYnJkcmhlYWRccGdicm ScGt2bhDslPWB9ITtvN5vg gP6vFpX1MDhqT0yosF0gLF v6PQxmeCG1BUSfeJ7fYT6q zvjya0xmWJoqRQfeTVTwuq Z6pgU1MLAjfFYtS9NdtL8h HONqIL1hcbksp5xgRUI1OJ evXPMzDHE2UnCjBKKqz6Sc ojg8OiBbb9QlhZScRExrG4 1vf283BSDwamPfV6axyOQs jkhljHTfboffUSdbrrQ6VU VpggNlw3XyKHMrQLD1GKvp KOvrwONnSWRmlXffp3dmY4 RscGFyXHBsYWluXGYxXGZz MjBcbGFuZzEwMzNcaGljaF ssJZdzOqGdQIXdAIcyG4fw WfRzT0KnILMxCmZawWYfQ5 ggVGhpcyByZXBvcnQgbWF5 UPhwJ2h8JUIxvpXjaGp5ek ByIeSmPHDwQWC8ERjmuINg ZELfc3CpycsecNLzZg0zjX CzJHVqwR6nFJUuDORxRZgc RR9gtMv7JOKUaTZhtSLzNa IXCSZzIQ68wqFsPUHNrofc n2T2DZcuEDJsv2QjaOZmR8 kjl5QjERRlh92eFO5nb1A1 n8qpSHE9AH2lm9FgQUXfkG XziDKaYPLpf1Ftwmhes7Zi TCIfvfWre9YnOWEctoLbbV LwBGJbgpFpcf9xuiVeQZYn LKBmD4FisxuvaWeiaxMbTA Mfxy2brmSgPYX7UKELMDTr LGXzx4YhfJ0jyVAQVSN6mJ Jrkh6xrdYPwRNvJGEctq26 VXChBR7qL1hsNXPqAPWlgj SjsZJae5InYPYxkNI8qAZc NP6WXmQAt26bZVJeAWDGbw MiOREgyCksqJZ9zyX8hH0t IChGREEpLlx+IFRoZSBGRE XvHQ0pqzEzs6SvowEahCyl RVBdiICeq8RfwORhr9MlqQ vhm6SkuZCncQCcIG1oFVSx clxwYXIgVVRNQiBMYWJvcm I3m6XeVZRoWLViCQK2pZed zig7EJNlwK0fBSPkI3thwn obFEsoPFUzq0MpnR5zyUHU aTMni5DenNQkzQMWuYYpKK 5bucOyZCmNMSeRNYG9alIr FQAtz5MuWCovX9dqZ30ciJ xaqZt5dTV3RCW0rT0hNpc+ IFxwYXJccGFyIEFwcHJvcH YaYIBquFdntuXxF4LfdhNp oA3tlIMqrtEhKO0nVH4pK5 Z0rFJlSUEturPmt7edHCjc dmUgYmVlbiByZXZpZXdlZC Wda2YuQHucTLP6ZUhflbHj bmNsdWRpbmcgSCZFLCBTcG BfmAMjVIH7AHhzfoZvbmKr HI8lhV0xnQydbI5mdDQneL A1rsvcETVbHQAhxUmqPIEg EY1dgTllnX3jEcBxQxNsYR ovYY3rTNDvY3tvcOAbSOWr VXEzW4yvZxXdgQ0foNijJX xjZjJcZnMyMFxwYXJccGFy XHBsYWluXGYxXGZzMjBcbG FuZzEwMzNcaGljaFxmMVxk FfTqFOEwJNukO8ejCgBxK4 NjUCPmNrVznRSdL0ssNWxm IUJ7LYHlOU0ezTJqOV23tK Trl7erYDzeaTrzrf8hD56q oMLtFRvrlVovRGTwt53mn1 ZsINBxpgPgri5mYDFkmlE7 pF9lIORpwMbsWYNbtTMjND Vmq1JoWPtwfEEzfwKwHHdj WVNsOSCyiCMpzhT4loGqbx DqldUlDNAfrKcbNRRqj5Kp UYKcIJvet6Nxiy7suAAdAU MtbsIEiEnriUBiiF7nW2Pr DPZrTIIhek6eMHRboZ6pOX tgb7WjyhwoXCPuQQIjVXMe wtLwze7cZZShsGDLUC5UPV criOWhl1AmoyIaG8wPRNA7 NUQwNjYwMjgxKSBleGNlcH GiBWPnwd91RZMsnH9kaSbc PXMhzE1ozE9smCjxlO3wEv DqAzExJAreVZ4rLRVvG7ay kOSqEHLnWWUvJ5dfAbAghF 9jaFxmMVxjZjJcZnMyMFxw YXJ9fQ== Embedded Images (test code = 7391551188) [facility]. METABOLIC PANEL ([id number])2022-11-03 17:25:32* Test Item Value Reference Range Interpretation Comme nts NA (test code = 3711797348) 139 mmol/L 135-145 K (test code = 3582964713) 4.2 mmol/L 3.5-5.0 CL (test code = 7264605001) 105 mmol/L 98-108 CO2 TOTAL (test code = 3287316404) 26 mmol/L 23-31 AGAP (test code = 2366600078) 8 2-16 BUN (test code = 7566478900) 9 mg/dL 7-23 GLUCOSE (test code = 1243321739) 93 mg/dL 70-110 CREATININE (test code = 0611534169) 0.60 mg/dL 0.50-1.04 TOTAL BILI (test code = 9157886527) 0.2 mg/dL 0.1-1.1 CALCIUM (test code = 8837797879) 9.2 mg/dL 8.6-10.6 T PROTEIN (test code = 7355852641) 7.0 g/dL 6.3-8.2 ALBUMIN (test code = 0251930187) 4.2 g/dL 3.5-5.0 ALK PHOS (test code = 0778118729) 118 U/L 34-122 ALTv (test code = 1742-6) 34 U/L 5-35 AST(SGOT) (test code = 0876683890) 34 U/L 13-40 eGFR (test code = 3572206438) 108.1 mL/min/1.73m2 ZAINAB (test code = ZAINAB) [...] or urine or abnormalities in imaging tests). [facility]. METABOLIC PANEL ([id number])2022-11-03 17:25:32* Test Item Value Reference Range Interpretation Comme nts NA (test code = 3037370270) 139 mmol/L 135-145 K (test code = 1162194283) 4.2 mmol/L 3.5-5.0 CL (test code = 0091019453) 105 mmol/L 98-108 CO2 TOTAL (test code = 2118665985) 26 mmol/L 23-31 AGAP (test code = 2456875220) 8 2-16 BUN (test code = 1878499454) 9 mg/dL 7-23 GLUCOSE (test code = 2334776305) 93 mg/dL 70-110 CREATININE (test code = 5772138070) 0.60 mg/dL 0.50-1.04 TOTAL BILI (test code = 1187282547) 0.2 mg/dL 0.1-1.1 CALCIUM (test code = 3299229185) 9.2 mg/dL 8.6-10.6 T PROTEIN (test code = 2755314517) 7.0 g/dL 6.3-8.2 ALBUMIN (test code = 3646478310) 4.2 g/dL 3.5-5.0 ALK PHOS (test code = 2648161418) 118 U/L 34-122 ALTv (test code = 1742-6) 34 U/L 5-35 AST(SGOT) (test code = 2064805483) 34 U/L 13-40 eGFR (test code = 7961481987) 108.1 mL/min/1.73m2 ZAINAB (test code = ZAINAB) [...] or urine or abnormalities in imaging tests). [facility]. METABOLIC PANEL ([id number])2022-11-03 17:25:32* Test Item Value Reference Range Interpretation Comme nts NA (test code = 6091562526) 139 mmol/L 135-145 K (test code = 1450444903) 4.2 mmol/L 3.5-5.0 CL (test code = 6436586704) 105 mmol/L 98-108 CO2 TOTAL (test code = 1061642759) 26 mmol/L 23-31 AGAP (test code = 0075099881) 8 2-16 BUN (test code = 1573016505) 9 mg/dL 7-23 GLUCOSE (test code = 9714794645) 93 mg/dL 70-110 CREATININE (test code = 0257597669) 0.60 mg/dL 0.50-1.04 TOTAL BILI (test code = 0167453009) 0.2 mg/dL 0.1-1.1 CALCIUM (test code = 4455949322) 9.2 mg/dL 8.6-10.6 T PROTEIN (test code = 2445867301) 7.0 g/dL 6.3-8.2 ALBUMIN (test code = 8112976197) 4.2 g/dL 3.5-5.0 ALK PHOS (test code = 2970741417) 118 U/L 34-122 ALTv (test code = 1742-6) 34 U/L 5-35 AST(SGOT) (test code = 2902797963) 34 U/L 13-40 eGFR (test code = 7953367704) 108.1 mL/min/1.73m2 ZAINAB (test code = ZAINAB) [...] or urine or abnormalities in imaging tests). [facility]. METABOLIC PANEL ([id number])2022-11-03 17:25:32* Test Item Value Reference Range Interpretation Comme nts NA (test code = 5572599701) 139 mmol/L 135-145 K (test code = 4860278312) 4.2 mmol/L 3.5-5.0 CL (test code = 1021137795) 105 mmol/L 98-108 CO2 TOTAL (test code = 8521260744) 26 mmol/L 23-31 AGAP (test code = 2401882837) 8 2-16 BUN (test code = 3907445796) 9 mg/dL 7-23 GLUCOSE (test code = 8110072205) 93 mg/dL 70-110 CREATININE (test code = 0317233945) 0.60 mg/dL 0.50-1.04 TOTAL BILI (test code = 0659916638) 0.2 mg/dL 0.1-1.1 CALCIUM (test code = 0586200309) 9.2 mg/dL 8.6-10.6 T PROTEIN (test code = 0099710814) 7.0 g/dL 6.3-8.2 ALBUMIN (test code = 8642336966) 4.2 g/dL 3.5-5.0 ALK PHOS (test code = 7495492226) 118 U/L 34-122 ALTv (test code = 1742-6) 34 U/L 5-35 AST(SGOT) (test code = 3289670633) 34 U/L 13-40 eGFR (test code = 5318628907) 108.1 mL/min/1.73m2 ZAINAB (test code = ZAINAB) [...] or urine or abnormalities in imaging tests). [facility]. METABOLIC PANEL ([id number])2022-11-03 17:25:32* Test Item Value Reference Range Interpretation Comme nts NA (test code = 3713193184) 139 mmol/L 135-145 K (test code = 9294186095) 4.2 mmol/L 3.5-5.0 CL (test code = 8004788632) 105 mmol/L 98-108 CO2 TOTAL (test code = 3429896531) 26 mmol/L 23-31 AGAP (test code = 4167926288) 8 2-16 BUN (test code = 7747107785) 9 mg/dL 7-23 GLUCOSE (test code = 4383885610) 93 mg/dL 70-110 CREATININE (test code = 1465892120) 0.60 mg/dL 0.50-1.04 TOTAL BILI (test code = 8239467390) 0.2 mg/dL 0.1-1.1 CALCIUM (test code = 7921034092) 9.2 mg/dL 8.6-10.6 T PROTEIN (test code = 4445305630) 7.0 g/dL 6.3-8.2 ALBUMIN (test code = 4433195757) 4.2 g/dL 3.5-5.0 ALK PHOS (test code = 4597202819) 118 U/L 34-122 ALTv (test code = 1742-6) 34 U/L 5-35 AST(SGOT) (test code = 0885640360) 34 U/L 13-40 eGFR (test code = 8701462508) 108.1 mL/min/1.73m2 ZAINAB (test code = ZAINAB) [...] or urine or abnormalities in imaging tests). [facility]. METABOLIC PANEL ([id number])2022-11-03 17:25:32* Test Item Value Reference Range Interpretation Comme nts NA (test code = 7230009606) 139 mmol/L 135-145 K (test code = 1095435277) 4.2 mmol/L 3.5-5.0 CL (test code = 2137439568) 105 mmol/L 98-108 CO2 TOTAL (test code = 1484188621) 26 mmol/L 23-31 AGAP (test code = 7197286967) 8 2-16 BUN (test code = 7110515928) 9 mg/dL 7-23 GLUCOSE (test code = 4742752251) 93 mg/dL 70-110 CREATININE (test code = 0668592322) 0.60 mg/dL 0.50-1.04 TOTAL BILI (test code = 8740614498) 0.2 mg/dL 0.1-1.1 CALCIUM (test code = 3748433833) 9.2 mg/dL 8.6-10.6 T PROTEIN (test code = 2701342265) 7.0 g/dL 6.3-8.2 ALBUMIN (test code = 1422251445) 4.2 g/dL 3.5-5.0 ALK PHOS (test code = 1503486921) 118 U/L 34-122 ALTv (test code = 1742-6) 34 U/L 5-35 AST(SGOT) (test code = 0721978857) 34 U/L 13-40 eGFR (test code = 8046637411) 108.1 mL/min/1.73m2 ZAINAB (test code = ZAINAB) [...] or urine or abnormalities in imaging tests). [facility]. METABOLIC PANEL ([id number])2022-11-03 17:25:32* Test Item Value Reference Range Interpretation Comme nts NA (test code = 1591174873) 139 mmol/L 135-145 K (test code = 4008194141) 4.2 mmol/L 3.5-5.0 CL (test code = 4593829432) 105 mmol/L 98-108 CO2 TOTAL (test code = 4068028629) 26 mmol/L 23-31 AGAP (test code = 5146773409) 8 2-16 BUN (test code = 7187563940) 9 mg/dL 7-23 GLUCOSE (test code = 4681400727) 93 mg/dL 70-110 CREATININE (test code = 0344360329) 0.60 mg/dL 0.50-1.04 TOTAL BILI (test code = 2787163797) 0.2 mg/dL 0.1-1.1 CALCIUM (test code = 5282521023) 9.2 mg/dL 8.6-10.6 T PROTEIN (test code = 9586198559) 7.0 g/dL 6.3-8.2 ALBUMIN (test code = 1633457021) 4.2 g/dL 3.5-5.0 ALK PHOS (test code = 7838093341) 118 U/L 34-122 ALTv (test code = 1742-6) 34 U/L 5-35 AST(SGOT) (test code = 7867478273) 34 U/L 13-40 eGFR (test code = 7124279355) 108.1 mL/min/1.73m2 ZAINAB (test code = ZAINAB) [...] or urine or abnormalities in imaging tests). [facility]. METABOLIC PANEL ([id number])2022-11-03 17:25:32* Test Item Value Reference Range Interpretation Comme nts NA (test code = 6519962293) 139 mmol/L 135-145 K (test code = 1402697032) 4.2 mmol/L 3.5-5.0 CL (test code = 8024451218) 105 mmol/L 98-108 CO2 TOTAL (test code = 5453114339) 26 mmol/L 23-31 AGAP (test code = 5225205886) 8 2-16 BUN (test code = 3175796350) 9 mg/dL 7-23 GLUCOSE (test code = 7161402088) 93 mg/dL 70-110 CREATININE (test code = 8954466603) 0.60 mg/dL 0.50-1.04 TOTAL BILI (test code = 9111692494) 0.2 mg/dL 0.1-1.1 CALCIUM (test code = 2857234076) 9.2 mg/dL 8.6-10.6 T PROTEIN (test code = 0962592465) 7.0 g/dL 6.3-8.2 ALBUMIN (test code = 9495456661) 4.2 g/dL 3.5-5.0 ALK PHOS (test code = 1065002372) 118 U/L 34-122 ALTv (test code = 1742-6) 34 U/L 5-35 AST(SGOT) (test code = 7019444032) 34 U/L 13-40 eGFR (test code = 1797162864) 108.1 mL/min/1.73m2 ZAINAB (test code = ZAINAB) [...] or urine or abnormalities in imaging tests). [facility]. METABOLIC PANEL ([id number])2022-11-03 17:25:32* Test Item Value Reference Range Interpretation Comme nts NA (test code = 9922310191) 139 mmol/L 135-145 K (test code = 6506980686) 4.2 mmol/L 3.5-5.0 CL (test code = 9933953727) 105 mmol/L 98-108 CO2 TOTAL (test code = 7822272011) 26 mmol/L 23-31 AGAP (test code = 2252757734) 8 2-16 BUN (test code = 5875321021) 9 mg/dL 7-23 GLUCOSE (test code = 9683917125) 93 mg/dL 70-110 CREATININE (test code = 4234175147) 0.60 mg/dL 0.50-1.04 TOTAL BILI (test code = 0040698809) 0.2 mg/dL 0.1-1.1 CALCIUM (test code = 2495312506) 9.2 mg/dL 8.6-10.6 T PROTEIN (test code = 6509714448) 7.0 g/dL 6.3-8.2 ALBUMIN (test code = 3039258953) 4.2 g/dL 3.5-5.0 ALK PHOS (test code = 5948617985) 118 U/L 34-122 ALTv (test code = 1742-6) 34 U/L 5-35 AST(SGOT) (test code = 9158586421) 34 U/L 13-40 eGFR (test code = 51225-1) 108.1 mL/min/1.73m2 ZAINAB (test code = ZAINAB) [...] or urine or abnormalities in imaging tests). [facility]. METABOLIC PANEL ([id number])2022-11-03 17:25:32* Test Item Value Reference Range Interpretation Comme nts NA (test code = 7098683568) 139 mmol/L 135-145 K (test code = 0463415089) 4.2 mmol/L 3.5-5.0 CL (test code = 2776632114) 105 mmol/L 98-108 CO2 TOTAL (test code = 0334147776) 26 mmol/L 23-31 AGAP (test code = 6777976263) 8 2-16 BUN (test code = 8650700792) 9 mg/dL 7-23 GLUCOSE (test code = 7973777004) 93 mg/dL 70-110 CREATININE (test code = 0444981142) 0.60 mg/dL 0.50-1.04 TOTAL BILI (test code = 8415475818) 0.2 mg/dL 0.1-1.1 CALCIUM (test code = 2972319229) 9.2 mg/dL 8.6-10.6 T PROTEIN (test code = 2484810275) 7.0 g/dL 6.3-8.2 ALBUMIN (test code = 3248091502) 4.2 g/dL 3.5-5.0 ALK PHOS (test code = 0729154666) 118 U/L 34-122 ALTv (test code = 1742-6) 34 U/L 5-35 AST(SGOT) (test code = 2194755600) 34 U/L 13-40 eGFR (test code = 76858-2) 108.1 mL/min/1.73m2 ZAINAB (test code = ZAINAB) [...] or urine or abnormalities in imaging tests). [facility]. METABOLIC PANEL ([id number])2022-11-03 17:25:32* Test Item Value Reference Range Interpretation Comme nts NA (test code = 1360930802) 139 mmol/L 135-145 K (test code = 5623329763) 4.2 mmol/L 3.5-5.0 CL (test code = 3405212319) 105 mmol/L 98-108 CO2 TOTAL (test code = 7447319482) 26 mmol/L 23-31 AGAP (test code = 2547634765) 8 2-16 BUN (test code = 9088305991) 9 mg/dL 7-23 GLUCOSE (test code = 9128846737) 93 mg/dL 70-110 CREATININE (test code = 4483725468) 0.60 mg/dL 0.50-1.04 TOTAL BILI (test code = 0515878800) 0.2 mg/dL 0.1-1.1 CALCIUM (test code = 1765408675) 9.2 mg/dL 8.6-10.6 T PROTEIN (test code = 2711353804) 7.0 g/dL 6.3-8.2 ALBUMIN (test code = 4113836890) 4.2 g/dL 3.5-5.0 ALK PHOS (test code = 0224909916) 118 U/L 34-122 ALTv (test code = 1742-6) 34 U/L 5-35 AST(SGOT) (test code = 7685422795) 34 U/L 13-40 eGFR (test code = 26869-5) 108.1 mL/min/1.73m2 ZAINAB (test code = ZAINAB) [...] or urine or abnormalities in imaging tests). [facility]. METABOLIC PANEL ([id number])2022-11-03 17:25:32* Test Item Value Reference Range Interpretation Comme nts NA (test code = 0885985725) 139 mmol/L 135-145 K (test code = 9561730998) 4.2 mmol/L 3.5-5.0 CL (test code = 8104481791) 105 mmol/L 98-108 CO2 TOTAL (test code = 1467430170) 26 mmol/L 23-31 AGAP (test code = 7559087936) 8 2-16 BUN (test code = 2604450116) 9 mg/dL 7-23 GLUCOSE (test code = 5639397415) 93 mg/dL 70-110 CREATININE (test code = 3510763415) 0.60 mg/dL 0.50-1.04 TOTAL BILI (test code = 6247822224) 0.2 mg/dL 0.1-1.1 CALCIUM (test code = 4549015664) 9.2 mg/dL 8.6-10.6 T PROTEIN (test code = 9514676917) 7.0 g/dL 6.3-8.2 ALBUMIN (test code = 5243066249) 4.2 g/dL 3.5-5.0 ALK PHOS (test code = 6021002593) 118 U/L 34-122 ALTv (test code = 1742-6) 34 U/L 5-35 AST(SGOT) (test code = 9823038064) 34 U/L 13-40 eGFR (test code = 56996-3) 108.1 mL/min/1.73m2 ZAINAB (test code = ZAINAB) [...] urine or abnormalities in imaging tests). [facility]IC [facility] ([id number])2022-11-03 17:25:32* Test Item Value Reference Range Interpretation Comme nts NA (test code = 1025664579) 139 mmol/L 135-145 K (test code = 0279440111) 4.2 mmol/L 3.5-5.0 CL (test code = 8168751840) 105 mmol/L 98-108 CO2 TOTAL (test code = 0776747348) 26 mmol/L 23-31 AGAP (test code = 5462545849) 8 2-16 BUN (test code = 8073162034) 9 mg/dL 7-23 GLUCOSE (test code = 7929128738) 93 mg/dL 70-110 CREATININE (test code = 1651388797) 0.60 mg/dL 0.50-1.04 TOTAL BILI (test code = 2152111095) 0.2 mg/dL 0.1-1.1 CALCIUM (test code = 3974504486) 9.2 mg/dL 8.6-10.6 T PROTEIN (test code = 8789957392) 7.0 g/dL 6.3-8.2 ALBUMIN (test code = 7512182022) 4.2 g/dL 3.5-5.0 ALK PHOS (test code = 5033133007) 118 U/L 34-122 ALTv (test code = 1742-6) 34 U/L 5-35 AST(SGOT) (test code = 7341994523) 34 U/L 13-40 eGFR (test code = 69530-5) 108.1 mL/min/1.73m2 ZAINAB (test code = ZAINAB) [...] or urine or abnormalities in imaging tests). [facility]. METABOLIC PANEL ([id number])2022-11-03 17:25:32* Test Item Value Reference Range Interpretation Comme nts NA (test code = 8746403528) 139 mmol/L 135-145 K (test code = 5280608976) 4.2 mmol/L 3.5-5.0 CL (test code = 1235937209) 105 mmol/L 98-108 CO2 TOTAL (test code = 3285535779) 26 mmol/L 23-31 AGAP (test code = 5649210042) 8 2-16 BUN (test code = 5805873031) 9 mg/dL 7-23 GLUCOSE (test code = 2900417372) 93 mg/dL 70-110 CREATININE (test code = 8768833293) 0.60 mg/dL 0.50-1.04 TOTAL BILI (test code = 3850288732) 0.2 mg/dL 0.1-1.1 CALCIUM (test code = 4440442631) 9.2 mg/dL 8.6-10.6 T PROTEIN (test code = 1643513279) 7.0 g/dL 6.3-8.2 ALBUMIN (test code = 1985868440) 4.2 g/dL 3.5-5.0 ALK PHOS (test code = 2111146544) 118 U/L 34-122 ALTv (test code = 1742-6) 34 U/L 5-35 AST(SGOT) (test code = 1862120561) 34 U/L 13-40 eGFR (test code = 86819-1) 108.1 mL/min/1.73m2 ZAINAB (test code = ZAINAB) [...] or urine or abnormalities in imaging tests). [facility]. METABOLIC PANEL ([id number])2022-11-03 17:25:32* Test Item Value Reference Range Interpretation Comme nts NA (test code = 3270563133) 139 mmol/L 135-145 K (test code = 1981815151) 4.2 mmol/L 3.5-5.0 CL (test code = 9588657637) 105 mmol/L 98-108 CO2 TOTAL (test code = 0110271703) 26 mmol/L 23-31 AGAP (test code = 1830450467) 8 2-16 BUN (test code = 8751642962) 9 mg/dL 7-23 GLUCOSE (test code = 6615295392) 93 mg/dL 70-110 CREATININE (test code = 6514591991) 0.60 mg/dL 0.50-1.04 TOTAL BILI (test code = 3547471423) 0.2 mg/dL 0.1-1.1 CALCIUM (test code = 8796826260) 9.2 mg/dL 8.6-10.6 T PROTEIN (test code = 4739591371) 7.0 g/dL 6.3-8.2 ALBUMIN (test code = 1401651276) 4.2 g/dL 3.5-5.0 ALK PHOS (test code = 5621754331) 118 U/L 34-122 ALTv (test code = 1742-6) 34 U/L 5-35 AST(SGOT) (test code = 3262968489) 34 U/L 13-40 eGFR (test code = 09790-1) 108.1 mL/min/1.73m2 ZAINAB (test code = ZAINAB) [...] urine or abnormalities in imaging tests). [facility]IC [facility] ([id number])2022-11-03 17:25:32* Test Item Value Reference Range Interpretation Comme nts NA (test code = 6226100319) 139 mmol/L 135-145 K (test code = 5137965518) 4.2 mmol/L 3.5-5.0 CL (test code = 9654841673) 105 mmol/L 98-108 CO2 TOTAL (test code = 5078173988) 26 mmol/L 23-31 AGAP (test code = 6396430883) 8 2-16 BUN (test code = 0932989612) 9 mg/dL 7-23 GLUCOSE (test code = 7235285103) 93 mg/dL 70-110 CREATININE (test code = 6869174724) 0.60 mg/dL 0.50-1.04 TOTAL BILI (test code = 9872018128) 0.2 mg/dL 0.1-1.1 CALCIUM (test code = 7303224778) 9.2 mg/dL 8.6-10.6 T PROTEIN (test code = 9235456308) 7.0 g/dL 6.3-8.2 ALBUMIN (test code = 0107435839) 4.2 g/dL 3.5-5.0 ALK PHOS (test code = 7712310327) 118 U/L 34-122 ALTv (test code = 1742-6) 34 U/L 5-35 AST(SGOT) (test code = 1309436524) 34 U/L 13-40 eGFR (test code = 31780-1) 108.1 mL/min/1.73m2 ZAINAB (test code = ZAINAB) [...] or urine or abnormalities in imaging tests). [facility]. METABOLIC PANEL ([id number])2022-11-03 17:25:32* Test Item Value Reference Range Interpretation Comme nts NA (test code = 6801632108) 139 mmol/L 135-145 K (test code = 7248520448) 4.2 mmol/L 3.5-5.0 CL (test code = 1605729339) 105 mmol/L 98-108 CO2 TOTAL (test code = 4534401940) 26 mmol/L 23-31 AGAP (test code = 1265842879) 8 2-16 BUN (test code = 8964775236) 9 mg/dL 7-23 GLUCOSE (test code = 4546256179) 93 mg/dL 70-110 CREATININE (test code = 2384561161) 0.60 mg/dL 0.50-1.04 TOTAL BILI (test code = 8271017424) 0.2 mg/dL 0.1-1.1 CALCIUM (test code = 4711454016) 9.2 mg/dL 8.6-10.6 T PROTEIN (test code = 3559620779) 7.0 g/dL 6.3-8.2 ALBUMIN (test code = 6972165864) 4.2 g/dL 3.5-5.0 ALK PHOS (test code = 2242794499) 118 U/L 34-122 ALTv (test code = 1742-6) 34 U/L 5-35 AST(SGOT) (test code = 6271700843) 34 U/L 13-40 eGFR (test code = 12730-7) 108.1 mL/min/1.73m2 ZAINAB (test code = ZAINAB) [...] or urine or abnormalities in imaging tests). [facility]. METABOLIC PANEL ([id number])2022-11-03 17:25:32* Test Item Value Reference Range Interpretation Comme nts NA (test code = 6823369185) 139 mmol/L 135-145 K (test code = 6681088449) 4.2 mmol/L 3.5-5.0 CL (test code = 1474223709) 105 mmol/L 98-108 CO2 TOTAL (test code = 8627936700) 26 mmol/L 23-31 AGAP (test code = 0619711618) 8 2-16 BUN (test code = 1342903361) 9 mg/dL 7-23 GLUCOSE (test code = 8155925043) 93 mg/dL 70-110 CREATININE (test code = 8753745708) 0.60 mg/dL 0.50-1.04 TOTAL BILI (test code = 2867419468) 0.2 mg/dL 0.1-1.1 CALCIUM (test code = 3025378611) 9.2 mg/dL 8.6-10.6 T PROTEIN (test code = 4979756020) 7.0 g/dL 6.3-8.2 ALBUMIN (test code = 8297498130) 4.2 g/dL 3.5-5.0 ALK PHOS (test code = 9271837879) 118 U/L 34-122 ALTv (test code = 1742-6) 34 U/L 5-35 AST(SGOT) (test code = 0856907593) 34 U/L 13-40 eGFR (test code = 68900-1) 108.1 mL/min/1.73m2 ZAINAB (test code = ZAINAB) [...] or urine or abnormalities in imaging tests). [facility] WITH [id number] 17:18:52* Test Item Value Reference Range Interpretation [...] g/dL 31.6-35.1 L RDW-SD (test code = 90252-8) 46.2 fL 39.0-49.9 RDW-CV (test code = 788-0) 17.9 % 12.0-15.5 H PLT (test code = 777-3) 304 See_Comment [Automated messa ge] The system which generated this result transmitted reference range: 166 - 358 10*3/?L. The reference range was not used to interpret this result as normal/abnormal. MPV (test code = 38474-0) 11.0 fL 9.5-12.9 NRBC/100 WBC (test code = 4287897931) 0.0 See_Comment [Automated [employer] ssage] The system which generated this result transmitted reference range: 0.0 - 10.0 /100 WBCs. The reference range was not used to interpret this result as normal/abnormal. NRBC x10^3 (test code = 4927828026) See_Comment [Automated messa ge] The system which generated this result transmitted reference range: 10*3/?L. The reference range was not used to interpret this result as normal/abnormal. GRAN MAT (NEUT) % (test code = 770-8) 68.6 % IMM GRAN % (test code = 9230396749) 0.70 % LYMPH % (test code = 736-9) 19.8 % MONO % (test code = 5905-5) 5.3 % EOS % (test code = 713-8) 5.1 % BASO % (test code = 706-2) 0.5 % GRAN MAT x10^3(ANC) (test code = 2424178317) 5.08 10*3/uL 1.88-7.09 IMM GRAN x10^3 (test code = 0773595141) 0.05 10*3/uL 0.00-0.06 LYMPH x10^3 (test code = 731-0) 1.47 10*3/uL 1.32-3.29 MONO x10^3 (test code = 742-7) 0.39 10*3/uL 0.33-0.92 EOS x10^3 (test code = 711-2) 0.38 10*3/uL 0.03-0.39 BASO x10^3 (test code = 704-7) 0.04 10*3/uL 0.01-0.07 Lab Interpretation (test code = 72640-0) Abnormal [facility] WITH [id number] 17:18:52* Test Item Value Reference Range Interpretation Comme nts WBC (test code = 6690-2) 7.41 See_Comment [Automated [employer] ge] The system which generated this result transmitted reference range: 4.30 - 11.10 10*3/?L. The reference range was not used to interpret this result as normal/abnormal. RBC (test code = 789-8) 4.20 See_Comment [Automated [employer] ge] The system which generated this result [...] g/dL 31.6-35.1 L RDW-SD (test code = 78801-1) 46.2 fL 39.0-49.9 RDW-CV (test code = 788-0) 17.9 % 12.0-15.5 H PLT (test code = 777-3) 304 See_Comment [Automated [employer] ge] The system which generated this result transmitted reference range: 166 - 358 10*3/?L. The reference range was not used to interpret this result as normal/abnormal. MPV (test code = 92864-2) 11.0 fL 9.5-12.9 NRBC/100 WBC (test code = 0591141475) 0.0 See_Comment [Automated [employer] ssage] The system which generated this result transmitted reference range: 0.0 - 10.0 /100 WBCs. The reference range was not used to interpret this result as normal/abnormal. NRBC x10^3 (test code = 6105070862) See_Comment [Automated [employer] ge] The system which generated this result transmitted reference range: 10*3/?L. The reference range was not used to interpret this result as normal/abnormal. GRAN MAT (NEUT) % (test code = 770-8) 68.6 % IMM GRAN % (test code = 7451401784) 0.70 % LYMPH % (test code = 736-9) 19.8 % MONO % (test code = 5905-5) 5.3 % EOS % (test code = 713-8) 5.1 % BASO % (test code = 706-2) 0.5 % GRAN MAT x10^3(ANC) (test code = 4174128631) 5.08 10*3/uL 1.88-7.09 IMM GRAN x10^3 (test code = 6238957582) 0.05 10*3/uL 0.00-0.06 LYMPH x10^3 (test code = 731-0) 1.47 10*3/uL 1.32-3.29 MONO x10^3 (test code = 742-7) 0.39 10*3/uL 0.33-0.92 EOS x10^3 (test code = 711-2) 0.38 10*3/uL 0.03-0.39 BASO x10^3 (test code = 704-7) 0.04 10*3/uL 0.01-0.07 Lab Interpretation (test code = 98987-2) Abnormal [facility] WITH [id number] 17:18:52* Test Item Value Reference Range Interpretation Comme nts WBC (test code = 6690-2) 7.41 See_Comment [Automated [employer]] The system which generated this result transmitted reference range: 4.30 - 11.10 10*3/?L. The reference range was not used to interpret this result as normal/abnormal. RBC (test code = 789-8) 4.20 See_Comment [Automated [employer]] The system which generated this result transmitted [...] g/dL 31.6-35.1 L RDW-SD (test code = 11856-0) 46.2 fL 39.0-49.9 RDW-CV (test code = 788-0) 17.9 % 12.0-15.5 H PLT (test code = 777-3) 304 See_Comment [Automated [employer] ge] The system which generated this result transmitted reference range: 166 - 358 10*3/?L. The reference range was not used to interpret this result as normal/abnormal. MPV (test code = 23461-7) 11.0 fL 9.5-12.9 NRBC/100 WBC (test code = 6230160736) 0.0 See_Comment [Automated me ssage] The system which generated this result transmitted reference range: 0.0 - 10.0 /100 WBCs. The reference range was not used to interpret this result as normal/abnormal. NRBC x10^3 (test code = 8579034230) See_Comment [Automated messa ge] The system which generated this result transmitted reference range: 10*3/?L. The reference range was not used to interpret this result as normal/abnormal. GRAN MAT (NEUT) % (test code = 770-8) 68.6 % IMM GRAN % (test code = 8068648540) 0.70 % LYMPH % (test code = 736-9) 19.8 % MONO % (test code = 5905-5) 5.3 % EOS % (test code = 713-8) 5.1 % BASO % (test code = 706-2) 0.5 % GRAN MAT x10^3(ANC) (test code = 4855897805) 5.08 10*3/uL 1.88-7.09 IMM GRAN x10^3 (test code = 2027625046) 0.05 10*3/uL 0.00-0.06 LYMPH x10^3 (test code = 731-0) 1.47 10*3/uL 1.32-3.29 MONO x10^3 (test code = 742-7) 0.39 10*3/uL 0.33-0.92 EOS x10^3 (test code = 711-2) 0.38 10*3/uL 0.03-0.39 BASO x10^3 (test code = 704-7) 0.04 10*3/uL 0.01-0.07 Lab Interpretation (test code = 78870-9) Abnormal [facility] WITH [id number] 17:18:52* Test Item Value Reference Range Interpretation Comme nts WBC (test code = 6690-2) 7.41 See_Comment [Automated messa ge] The system which generated this result transmitted reference range: 4.30 - 11.10 10*3/?L. The reference range was not used to interpret this result as normal/abnormal. RBC (test code = 789-8) 4.20 See_Comment [Automated [employer] ge] The system which generated this result [...] g/dL 31.6-35.1 L RDW-SD (test code = 36261-1) 46.2 fL 39.0-49.9 RDW-CV (test code = 788-0) 17.9 % 12.0-15.5 H PLT (test code = 777-3) 304 See_Comment [Automated [employer] ge] The system which generated this result transmitted reference range: 166 - 358 10*3/?L. The reference range was not used to interpret this result as normal/abnormal. MPV (test code = 07770-2) 11.0 fL 9.5-12.9 NRBC/100 WBC (test code = 3136498662) 0.0 See_Comment [Automated [employer] ssage] The system which generated this result transmitted reference range: 0.0 - 10.0 /100 WBCs. The reference range was not used to interpret this result as normal/abnormal. NRBC x10^3 (test code = 7104162093) See_Comment [Automated [employer] ge] The system which generated this result transmitted reference range: 10*3/?L. The reference range was not used to interpret this result as normal/abnormal. GRAN MAT (NEUT) % (test code = 770-8) 68.6 % IMM GRAN % (test code = 0551789400) 0.70 % LYMPH % (test code = 736-9) 19.8 % MONO % (test code = 5905-5) 5.3 % EOS % (test code = 713-8) 5.1 % BASO % (test code = 706-2) 0.5 % GRAN MAT x10^3(ANC) (test code = 0758522654) 5.08 10*3/uL 1.88-7.09 IMM GRAN x10^3 (test code = 4634323125) 0.05 10*3/uL 0.00-0.06 LYMPH x10^3 (test code = 731-0) 1.47 10*3/uL 1.32-3.29 MONO x10^3 (test code = 742-7) 0.39 10*3/uL 0.33-0.92 EOS x10^3 (test code = 711-2) 0.38 10*3/uL 0.03-0.39 BASO x10^3 (test code = 704-7) 0.04 10*3/uL 0.01-0.07 Lab Interpretation (test code = 20966-8) Abnormal [facility] WITH [id number] 17:18:52* Test Item Value Reference Range Interpretation Comme nts WBC (test code = 6690-2) 7.41 See_Comment [Automated Paperspinea ge] The system which generated this result transmitted reference range: 4.30 - 11.10 10*3/?L. The reference range was not used to interpret this result as normal/abnormal. RBC (test code = 789-8) 4.20 See_Comment [Automated [employer] ge] The system which generated this result [...] g/dL 31.6-35.1 L RDW-SD (test code = 35064-2) 46.2 fL 39.0-49.9 RDW-CV (test code = 788-0) 17.9 % 12.0-15.5 H PLT (test code = 777-3) 304 See_Comment [Automated messa ge] The system which generated this result transmitted reference range: 166 - 358 10*3/?L. The reference range was not used to interpret this result as normal/abnormal. MPV (test code = 53649-9) 11.0 fL 9.5-12.9 NRBC/100 WBC (test code = 4284405601) 0.0 See_Comment [Automated Mos[employer] ssage] The system which generated this result transmitted reference range: 0.0 - 10.0 /100 WBCs. The reference range was not used to interpret this result as normal/abnormal. NRBC x10^3 (test code = 6224415105) See_Comment [Automated [employer] ge] The system which generated this result transmitted reference range: 10*3/?L. The reference range was not used to interpret this result as normal/abnormal. GRAN MAT (NEUT) % (test code = 770-8) 68.6 % IMM GRAN % (test code = 6546741491) 0.70 % LYMPH % (test code = 736-9) 19.8 % MONO % (test code = 5905-5) 5.3 % EOS % (test code = 713-8) 5.1 % BASO % (test code = 706-2) 0.5 % GRAN MAT x10^3(ANC) (test code = 3679543509) 5.08 10*3/uL 1.88-7.09 IMM GRAN x10^3 (test code = 5107855595) 0.05 10*3/uL 0.00-0.06 LYMPH x10^3 (test code = 731-0) 1.47 10*3/uL 1.32-3.29 MONO x10^3 (test code = 742-7) 0.39 10*3/uL 0.33-0.92 EOS x10^3 (test code = 711-2) 0.38 10*3/uL 0.03-0.39 BASO x10^3 (test code = 704-7) 0.04 10*3/uL 0.01-0.07 Lab Interpretation (test code = 14820-8) Abnormal [facility] WITH [id number] 17:18:52* Test Item Value Reference Range Interpretation [...] g/dL 31.6-35.1 L RDW-SD (test code = 54659-3) 46.2 fL 39.0-49.9 RDW-CV (test code = 788-0) 17.9 % 12.0-15.5 H PLT (test code = 777-3) 304 See_Comment [Automated messa ge] The system which generated this result transmitted reference range: 166 - 358 10*3/?L. The reference range was not used to interpret this result as normal/abnormal. MPV (test code = 66948-7) 11.0 fL 9.5-12.9 NRBC/100 WBC (test code = 5157176869) 0.0 See_Comment [Automated Mosso ssage] The system which generated this result transmitted reference range: 0.0 - 10.0 /100 WBCs. The reference range was not used to interpret this result as normal/abnormal. NRBC x10^3 (test code = 2841974998) See_Comment [Automated messa ge] The system which generated this result transmitted reference range: 10*3/?L. The reference range was not used to interpret this result as normal/abnormal. GRAN MAT (NEUT) % (test code = 770-8) 68.6 % IMM GRAN % (test code = 5639190701) 0.70 % LYMPH % (test code = 736-9) 19.8 % MONO % (test code = 5905-5) 5.3 % EOS % (test code = 713-8) 5.1 % BASO % (test code = 706-2) 0.5 % GRAN MAT x10^3(ANC) (test code = 5500134881) 5.08 10*3/uL 1.88-7.09 IMM GRAN x10^3 (test code = 4234278845) 0.05 10*3/uL 0.00-0.06 LYMPH x10^3 (test code = 731-0) 1.47 10*3/uL 1.32-3.29 MONO x10^3 (test code = 742-7) 0.39 10*3/uL 0.33-0.92 EOS x10^3 (test code = 711-2) 0.38 10*3/uL 0.03-0.39 BASO x10^3 (test code = 704-7) 0.04 10*3/uL 0.01-0.07 Lab Interpretation (test code = 73877-4) Abnormal [facility] WITH [id number] 17:18:52* Test Item Value Reference Range Interpretation [...] g/dL 31.6-35.1 L RDW-SD (test code = 72571-7) 46.2 fL 39.0-49.9 RDW-CV (test code = 788-0) 17.9 % 12.0-15.5 H PLT (test code = 777-3) 304 See_Comment [Automated messa ge] The system which generated this result transmitted reference range: 166 - 358 10*3/?L. The reference range was not used to interpret this result as normal/abnormal. MPV (test code = 01101-9) 11.0 fL 9.5-12.9 NRBC/100 WBC (test code = 3567518803) 0.0 See_Comment [Automated [employer] ssage] The system which generated this result transmitted reference range: 0.0 - 10.0 /100 WBCs. The reference range was not used to interpret this result as normal/abnormal. NRBC x10^3 (test code = 7370300299) See_Comment [Automated messa ge] The system which generated this result transmitted reference range: 10*3/?L. The reference range was not used to interpret this result as normal/abnormal. GRAN MAT (NEUT) % (test code = 770-8) 68.6 % IMM GRAN % (test code = 9989269228) 0.70 % LYMPH % (test code = 736-9) 19.8 % MONO % (test code = 5905-5) 5.3 % EOS % (test code = 713-8) 5.1 % BASO % (test code = 706-2) 0.5 % GRAN MAT x10^3(ANC) (test code = 5391131268) 5.08 10*3/uL 1.88-7.09 IMM GRAN x10^3 (test code = 1507856168) 0.05 10*3/uL 0.00-0.06 LYMPH x10^3 (test code = 731-0) 1.47 10*3/uL 1.32-3.29 MONO x10^3 (test code = 742-7) 0.39 10*3/uL 0.33-0.92 EOS x10^3 (test code = 711-2) 0.38 10*3/uL 0.03-0.39 BASO x10^3 (test code = 704-7) 0.04 10*3/uL 0.01-0.07 Lab Interpretation (test code = 89936-4) Abnormal [facility] WITH [id number] 17:18:52* Test Item Value Reference Range Interpretation Comme nts WBC (test code = 6690-2) 7.41 See_Comment [Automated [employer] ge] The system which generated this result transmitted reference range: 4.30 - 11.10 10*3/?L. The reference range was not used to interpret this result as normal/abnormal. RBC (test code = 789-8) 4.20 See_Comment [Automated [employer] ge] The system which generated this result [...] g/dL 31.6-35.1 L RDW-SD (test code = 89992-2) 46.2 fL 39.0-49.9 RDW-CV (test code = 788-0) 17.9 % 12.0-15.5 H PLT (test code = 777-3) 304 See_Comment [Automated [employer] ge] The system which generated this result transmitted reference range: 166 - 358 10*3/?L. The reference range was not used to interpret this result as normal/abnormal. MPV (test code = 31244-0) 11.0 fL 9.5-12.9 NRBC/100 WBC (test code = 1315168974) 0.0 See_Comment [Automated me ssage] The system which generated this result transmitted reference range: 0.0 - 10.0 /100 WBCs. The reference range was not used to interpret this result as normal/abnormal. NRBC x10^3 (test code = 3985168465) See_Comment [Automated messa ge] The system which generated this result transmitted reference range: 10*3/?L. The reference range was not used to interpret this result as normal/abnormal. GRAN MAT (NEUT) % (test code = 770-8) 68.6 % IMM GRAN % (test code = 5857909812) 0.70 % LYMPH % (test code = 736-9) 19.8 % MONO % (test code = 5905-5) 5.3 % EOS % (test code = 713-8) 5.1 % BASO % (test code = 706-2) 0.5 % GRAN MAT x10^3(ANC) (test code = 6915160338) 5.08 10*3/uL 1.88-7.09 IMM GRAN x10^3 (test code = 5120271989) 0.05 10*3/uL 0.00-0.06 LYMPH x10^3 (test code = 731-0) 1.47 10*3/uL 1.32-3.29 MONO x10^3 (test code = 742-7) 0.39 10*3/uL 0.33-0.92 EOS x10^3 (test code = 711-2) 0.38 10*3/uL 0.03-0.39 BASO x10^3 (test code = 704-7) 0.04 10*3/uL 0.01-0.07 Lab Interpretation (test code = 40070-2) Abnormal [facility] WITH [id number] 17:18:52* Test Item Value Reference Range Interpretation [...] g/dL 31.6-35.1 L RDW-SD (test code = 06194-3) 46.2 fL 39.0-49.9 RDW-CV (test code = 788-0) 17.9 % 12.0-15.5 H PLT (test code = 777-3) 304 See_Comment [Automated [employer] ge] The system which generated this result transmitted reference range: 166 - 358 10*3/?L. The reference range was not used to interpret this result as normal/abnormal. MPV (test code = 09288-4) 11.0 fL 9.5-12.9 NRBC/100 WBC (test code = 2726087783) 0.0 See_Comment [Automated Mos[employer] ssage] The system which generated this result transmitted reference range: 0.0 - 10.0 /100 WBCs. The reference range was not used to interpret this result as normal/abnormal. NRBC x10^3 (test code = 1751764325) See_Comment [Automated [employer] ge] The system which generated this result transmitted reference range: 10*3/?L. The reference range was not used to interpret this result as normal/abnormal. GRAN MAT (NEUT) % (test code = 770-8) 68.6 % IMM GRAN % (test code = 4174670252) 0.70 % LYMPH % (test code = 736-9) 19.8 % MONO % (test code = 5905-5) 5.3 % EOS % (test code = 713-8) 5.1 % BASO % (test code = 706-2) 0.5 % GRAN MAT x10^3(ANC) (test code = 6058264020) 5.08 10*3/uL 1.88-7.09 IMM GRAN x10^3 (test code = 4927026180) 0.05 10*3/uL 0.00-0.06 LYMPH x10^3 (test code = 731-0) 1.47 10*3/uL 1.32-3.29 MONO x10^3 (test code = 742-7) 0.39 10*3/uL 0.33-0.92 EOS x10^3 (test code = 711-2) 0.38 10*3/uL 0.03-0.39 BASO x10^3 (test code = 704-7) 0.04 10*3/uL 0.01-0.07 Lab Interpretation (test code = 23398-1) Abnormal [facility] WITH [id number] 17:18:52* Test Item Value Reference Range Interpretation Comme nts WBC (test code = 6690-2) 7.41 See_Comment [Automated [employer]] The system which generated this result transmitted reference range: 4.30 - 11.10 10*3/?L. The reference range was not used to interpret this result as normal/abnormal. RBC (test code = 789-8) 4.20 See_Comment [Automated [employer]] The system which generated this result transmitted [...] g/dL 31.6-35.1 L RDW-SD (test code = 37955-6) 46.2 fL 39.0-49.9 RDW-CV (test code = 788-0) 17.9 % 12.0-15.5 H PLT (test code = 777-3) 304 See_Comment [Automated messa ge] The system which generated this result transmitted reference range: 166 - 358 10*3/?L. The reference range was not used to interpret this result as normal/abnormal. MPV (test code = 52924-8) 11.0 fL 9.5-12.9 NRBC/100 WBC (test code = 7061404863) 0.0 See_Comment [Automated me ssage] The system which generated this result transmitted reference range: 0.0 - 10.0 /100 WBCs. The reference range was not used to interpret this result as normal/abnormal. NRBC x10^3 (test code = 3258956916) See_Comment [Automated messa ge] The system which generated this result transmitted reference range: 10*3/?L. The reference range was not used to interpret this result as normal/abnormal. GRAN MAT (NEUT) % (test code = 770-8) 68.6 % IMM GRAN % (test code = 6989898206) 0.70 % LYMPH % (test code = 736-9) 19.8 % MONO % (test code = 5905-5) 5.3 % EOS % (test code = 713-8) 5.1 % BASO % (test code = 706-2) 0.5 % GRAN MAT x10^3(ANC) (test code = 5767943753) 5.08 10*3/uL 1.88-7.09 IMM GRAN x10^3 (test code = 6848862197) 0.05 10*3/uL 0.00-0.06 LYMPH x10^3 (test code = 731-0) 1.47 10*3/uL 1.32-3.29 MONO x10^3 (test code = 742-7) 0.39 10*3/uL 0.33-0.92 EOS x10^3 (test code = 711-2) 0.38 10*3/uL 0.03-0.39 BASO x10^3 (test code = 704-7) 0.04 10*3/uL 0.01-0.07 Lab Interpretation (test code = 78630-2) Abnormal [facility] WITH [id number] 17:18:52* Test Item Value Reference Range Interpretation [...] g/dL 31.6-35.1 L RDW-SD (test code = 10867-3) 46.2 fL 39.0-49.9 RDW-CV (test code = 788-0) 17.9 % 12.0-15.5 H PLT (test code = 777-3) 304 See_Comment [Automated messa ge] The system which generated this result transmitted reference range: 166 - 358 10*3/?L. The reference range was not used to interpret this result as normal/abnormal. MPV (test code = 73734-7) 11.0 fL 9.5-12.9 NRBC/100 WBC (test code = 4170420704) 0.0 See_Comment [Automated Mos[employer] ssage] The system which generated this result transmitted reference range: 0.0 - 10.0 /100 WBCs. The reference range was not used to interpret this result as normal/abnormal. NRBC x10^3 (test code = 8397973194) See_Comment [Automated messa ge] The system which generated this result transmitted reference range: 10*3/?L. The reference range was not used to interpret this result as normal/abnormal. GRAN MAT (NEUT) % (test code = 770-8) 68.6 % IMM GRAN % (test code = 3419395563) 0.70 % LYMPH % (test code = 736-9) 19.8 % MONO % (test code = 5905-5) 5.3 % EOS % (test code = 713-8) 5.1 % BASO % (test code = 706-2) 0.5 % GRAN MAT x10^3(ANC) (test code = 7395206733) 5.08 10*3/uL 1.88-7.09 IMM GRAN x10^3 (test code = 4449481431) 0.05 10*3/uL 0.00-0.06 LYMPH x10^3 (test code = 731-0) 1.47 10*3/uL 1.32-3.29 MONO x10^3 (test code = 742-7) 0.39 10*3/uL 0.33-0.92 EOS x10^3 (test code = 711-2) 0.38 10*3/uL 0.03-0.39 BASO x10^3 (test code = 704-7) 0.04 10*3/uL 0.01-0.07 Lab Interpretation (test code = 82184-5) Abnormal [facility] WITH [id number] 17:18:52* Test Item Value Reference Range Interpretation Comme nts WBC (test code = 6690-2) 7.41 See_Comment [Automated [employer] ge] The system which generated this result [...] g/dL 31.6-35.1 L RDW-SD (test code = 30052-3) 46.2 fL 39.0-49.9 RDW-CV (test code = 788-0) 17.9 % 12.0-15.5 H PLT (test code = 777-3) 304 See_Comment [Automated [employer] ge] The system which generated this result transmitted reference range: 166 - 358 10*3/?L. The reference range was not used to interpret this result as normal/abnormal. MPV (test code = 09923-9) 11.0 fL 9.5-12.9 NRBC/100 WBC (test code = 4858648496) 0.0 See_Comment [Automated Mos[employer] ssage] The system which generated this result transmitted reference range: 0.0 - 10.0 /100 WBCs. The reference range was not used to interpret this result as normal/abnormal. NRBC x10^3 (test code = 4135846314) See_Comment [Automated [employer] ge] The system which generated this result transmitted reference range: 10*3/?L. The reference range was not used to interpret this result as normal/abnormal. GRAN MAT (NEUT) % (test code = 770-8) 68.6 % IMM GRAN % (test code = 2677495746) 0.70 % LYMPH % (test code = 736-9) 19.8 % MONO % (test code = 5905-5) 5.3 % EOS % (test code = 713-8) 5.1 % BASO % (test code = 706-2) 0.5 % GRAN MAT x10^3(ANC) (test code = 2346104075) 5.08 10*3/uL 1.88-7.09 IMM GRAN x10^3 (test code = 5452275820) 0.05 10*3/uL 0.00-0.06 LYMPH x10^3 (test code = 731-0) 1.47 10*3/uL 1.32-3.29 MONO x10^3 (test code = 742-7) 0.39 10*3/uL 0.33-0.92 EOS x10^3 (test code = 711-2) 0.38 10*3/uL 0.03-0.39 BASO x10^3 (test code = 704-7) 0.04 10*3/uL 0.01-0.07 Lab Interpretation (test code = 36933-0) Abnormal [facility] WITH [id number] 17:18:52* Test Item Value Reference Range Interpretation [...] g/dL 31.6-35.1 L RDW-SD (test code = 34033-6) 46.2 fL 39.0-49.9 RDW-CV (test code = 788-0) 17.9 % 12.0-15.5 H PLT (test code = 777-3) 304 See_Comment [Automated messa ge] The system which generated this result transmitted reference range: 166 - 358 10*3/?L. The reference range was not used to interpret this result as normal/abnormal. MPV (test code = 97846-9) 11.0 fL 9.5-12.9 NRBC/100 WBC (test code = 1480170428) 0.0 See_Comment [Automated Mos[employer] ssage] The system which generated this result transmitted reference range: 0.0 - 10.0 /100 WBCs. The reference range was not used to interpret this result as normal/abnormal. NRBC x10^3 (test code = 6606194537) See_Comment [Automated messa ge] The system which generated this result transmitted reference range: 10*3/?L. The reference range was not used to interpret this result as normal/abnormal. GRAN MAT (NEUT) % (test code = 770-8) 68.6 % IMM GRAN % (test code = 9732607601) 0.70 % LYMPH % (test code = 736-9) 19.8 % MONO % (test code = 5905-5) 5.3 % EOS % (test code = 713-8) 5.1 % BASO % (test code = 706-2) 0.5 % GRAN MAT x10^3(ANC) (test code = 9578897183) 5.08 10*3/uL 1.88-7.09 IMM GRAN x10^3 (test code = 5665661267) 0.05 10*3/uL 0.00-0.06 LYMPH x10^3 (test code = 731-0) 1.47 10*3/uL 1.32-3.29 MONO x10^3 (test code = 742-7) 0.39 10*3/uL 0.33-0.92 EOS x10^3 (test code = 711-2) 0.38 10*3/uL 0.03-0.39 BASO x10^3 (test code = 704-7) 0.04 10*3/uL 0.01-0.07 Lab Interpretation (test code = 28717-8) Abnormal [facility] WITH [id number] 17:18:52* Test Item Value Reference Range Interpretation [...] g/dL 31.6-35.1 L RDW-SD (test code = 94821-2) 46.2 fL 39.0-49.9 RDW-CV (test code = 788-0) 17.9 % 12.0-15.5 H PLT (test code = 777-3) 304 See_Comment [Automated messa ge] The system which generated this result transmitted reference range: 166 - 358 10*3/?L. The reference range was not used to interpret this result as normal/abnormal. MPV (test code = 95895-6) 11.0 fL 9.5-12.9 NRBC/100 WBC (test code = 7651902252) 0.0 See_Comment [Automated Mos[employer] ssage] The system which generated this result transmitted reference range: 0.0 - 10.0 /100 WBCs. The reference range was not used to interpret this result as normal/abnormal. NRBC x10^3 (test code = 6884804235) See_Comment [Automated messa ge] The system which generated this result transmitted reference range: 10*3/?L. The reference range was not used to interpret this result as normal/abnormal. GRAN MAT (NEUT) % (test code = 770-8) 68.6 % IMM GRAN % (test code = 1489763337) 0.70 % LYMPH % (test code = 736-9) 19.8 % MONO % (test code = 5905-5) 5.3 % EOS % (test code = 713-8) 5.1 % BASO % (test code = 706-2) 0.5 % GRAN MAT x10^3(ANC) (test code = 3126919723) 5.08 10*3/uL 1.88-7.09 IMM GRAN x10^3 (test code = 8701868152) 0.05 10*3/uL 0.00-0.06 LYMPH x10^3 (test code = 731-0) 1.47 10*3/uL 1.32-3.29 MONO x10^3 (test code = 742-7) 0.39 10*3/uL 0.33-0.92 EOS x10^3 (test code = 711-2) 0.38 10*3/uL 0.03-0.39 BASO x10^3 (test code = 704-7) 0.04 10*3/uL 0.01-0.07 Lab Interpretation (test code = 83034-3) Abnormal [facility] WITH [id number] 17:18:52* Test Item Value Reference Range Interpretation Comme nts WBC (test code = 6690-2) 7.41 See_Comment [Automated [employer] ge] The system which generated this result [...] g/dL 31.6-35.1 L RDW-SD (test code = 29015-4) 46.2 fL 39.0-49.9 RDW-CV (test code = 788-0) 17.9 % 12.0-15.5 H PLT (test code = 777-3) 304 See_Comment [Automated messa ge] The system which generated this result transmitted reference range: 166 - 358 10*3/?L. The reference range was not used to interpret this result as normal/abnormal. MPV (test code = 75612-8) 11.0 fL 9.5-12.9 NRBC/100 WBC (test code = 2487667428) 0.0 See_Comment [Automated me ssage] The system which generated this result transmitted reference range: 0.0 - 10.0 /100 WBCs. The reference range was not used to interpret this result as normal/abnormal. NRBC x10^3 (test code = 8158436818) See_Comment [Automated messa ge] The system which generated this result transmitted reference range: 10*3/?L. The reference range was not used to interpret this result as normal/abnormal. GRAN MAT (NEUT) % (test code = 770-8) 68.6 % IMM GRAN % (test code = 3665567055) 0.70 % LYMPH % (test code = 736-9) 19.8 % MONO % (test code = 5905-5) 5.3 % EOS % (test code = 713-8) 5.1 % BASO % (test code = 706-2) 0.5 % GRAN MAT x10^3(ANC) (test code = 4243365376) 5.08 10*3/uL 1.88-7.09 IMM GRAN x10^3 (test code = 0159678126) 0.05 10*3/uL 0.00-0.06 LYMPH x10^3 (test code = 731-0) 1.47 10*3/uL 1.32-3.29 MONO x10^3 (test code = 742-7) 0.39 10*3/uL 0.33-0.92 EOS x10^3 (test code = 711-2) 0.38 10*3/uL 0.03-0.39 BASO x10^3 (test code = 704-7) 0.04 10*3/uL 0.01-0.07 Lab Interpretation (test code = 86866-7) Abnormal [facility] WITH [id number] 17:18:52* Test Item Value Reference Range Interpretation Comme nts WBC (test code = 6690-2) 7.41 See_Comment [Automated messa ge] The system which generated this result transmitted reference range: 4.30 - 11.10 10*3/?L. The reference range was not used to interpret this result as normal/abnormal. RBC (test code = 789-8) 4.20 See_Comment [Automated [employer] ge] The system which generated this result [...] g/dL 31.6-35.1 L RDW-SD (test code = 91022-1) 46.2 fL 39.0-49.9 RDW-CV (test code = 788-0) 17.9 % 12.0-15.5 H PLT (test code = 777-3) 304 See_Comment [Automated [employer] ge] The system which generated this result transmitted reference range: 166 - 358 10*3/?L. The reference range was not used to interpret this result as normal/abnormal. MPV (test code = 16717-5) 11.0 fL 9.5-12.9 NRBC/100 WBC (test code = 1965132299) 0.0 See_Comment [Automated [employer]] The system which generated this result transmitted reference range: 0.0 - 10.0 /100 WBCs. The reference range was not used to interpret this result as normal/abnormal. NRBC x10^3 (test code = 5637609473) See_Comment [Automated [employer] ge] The system which generated this result transmitted reference range: 10*3/?L. The reference range was not used to interpret this result as normal/abnormal. GRAN MAT (NEUT) % (test code = 770-8) 68.6 % IMM GRAN % (test code = 3301155644) 0.70 % LYMPH % (test code = 736-9) 19.8 % MONO % (test code = 5905-5) 5.3 % EOS % (test code = 713-8) 5.1 % BASO % (test code = 706-2) 0.5 % GRAN MAT x10^3(ANC) (test code = 1969138632) 5.08 10*3/uL 1.88-7.09 IMM GRAN x10^3 (test code = 1739124753) 0.05 10*3/uL 0.00-0.06 LYMPH x10^3 (test code = 731-0) 1.47 10*3/uL 1.32-3.29 MONO x10^3 (test code = 742-7) 0.39 10*3/uL 0.33-0.92 EOS x10^3 (test code = 711-2) 0.38 10*3/uL 0.03-0.39 BASO x10^3 (test code = 704-7) 0.04 10*3/uL 0.01-0.07 Lab Interpretation (test code = 63926-9) Abnormal [facility] WITH [id number] 17:18:52* Test Item Value Reference Range Interpretation Comme nts WBC (test code = 6690-2) 7.41 See_Comment [Automated [employer]] The system which generated this result transmitted reference range: 4.30 - 11.10 10*3/?L. The reference range was not used to interpret this result as normal/abnormal. RBC (test code = 789-8) 4.20 See_Comment [Automated [employer]] The system which generated this result transmitted [...] g/dL 31.6-35.1 L RDW-SD (test code = 49407-4) 46.2 fL 39.0-49.9 RDW-CV (test code = 788-0) 17.9 % 12.0-15.5 H PLT (test code = 777-3) 304 See_Comment [Automated [employer]] The system which generated this result transmitted reference range: 166 - 358 10*3/?L. The reference range was not used to interpret this result as normal/abnormal. MPV (test code = 81591-5) 11.0 fL 9.5-12.9 NRBC/100 WBC (test code = 3412222461) 0.0 See_Comment [Automated [employer]] The system which generated this result transmitted reference range: 0.0 - 10.0 /100 WBCs. The reference range was not used to interpret this result as normal/abnormal. NRBC x10^3 (test code = 7203570195) See_Comment [Automated [employer]] The system which generated this result transmitted reference range: 10*3/?L. The reference range was not used to interpret this result as normal/abnormal. GRAN MAT (NEUT) % (test code = 770-8) 68.6 % IMM GRAN % (test code = 9686403077) 0.70 % LYMPH % (test code = 736-9) 19.8 % MONO % (test code = 5905-5) 5.3 % EOS % (test code = 713-8) 5.1 % BASO % (test code = 706-2) 0.5 % GRAN MAT x10^3(ANC) (test code = 7358520661) 5.08 10*3/uL 1.88-7.09 IMM GRAN x10^3 (test code = 6934156542) 0.05 10*3/uL 0.00-0.06 LYMPH x10^3 (test code = 731-0) 1.47 10*3/uL 1.32-3.29 MONO x10^3 (test code = 742-7) 0.39 10*3/uL 0.33-0.92 EOS x10^3 (test code = 711-2) 0.38 10*3/uL 0.03-0.39 BASO x10^3 (test code = 704-7) 0.04 10*3/uL 0.01-0.07 Lab Interpretation (test code = 82663-9) Abnormal [facility] WITH [id number] 17:18:52* Test Item Value Reference Range Interpretation [...] g/dL 31.6-35.1 L RDW-SD (test code = 78562-0) 46.2 fL 39.0-49.9 RDW-CV (test code = 788-0) 17.9 % 12.0-15.5 H PLT (test code = 777-3) 304 See_Comment [Automated messa ge] The system which generated this result transmitted reference range: 166 - 358 10*3/?L. The reference range was not used to interpret this result as normal/abnormal. MPV (test code = 91702-0) 11.0 fL 9.5-12.9 NRBC/100 WBC (test code = 3179623867) 0.0 See_Comment [Automated me ssage] The system which generated this result transmitted reference range: 0.0 - 10.0 /100 WBCs. The reference range was not used to interpret this result as normal/abnormal. NRBC x10^3 (test code = 1461170217) See_Comment [Automated messa ge] The system which generated this result transmitted reference range: 10*3/?L. The reference range was not used to interpret this result as normal/abnormal. GRAN MAT (NEUT) % (test code = 770-8) 68.6 % IMM GRAN % (test code = 1823659613) 0.70 % LYMPH % (test code = 736-9) 19.8 % MONO % (test code = 5905-5) 5.3 % EOS % (test code = 713-8) 5.1 % BASO % (test code = 706-2) 0.5 % GRAN MAT x10^3(ANC) (test code = 9456049516) 5.08 10*3/uL 1.88-7.09 IMM GRAN x10^3 (test code = 2736925261) 0.05 10*3/uL 0.00-0.06 LYMPH x10^3 (test code = 731-0) 1.47 10*3/uL 1.32-3.29 MONO x10^3 (test code = 742-7) 0.39 10*3/uL 0.33-0.92 EOS x10^3 (test code = 711-2) 0.38 10*3/uL 0.03-0.39 BASO x10^3 (test code = 704-7) 0.04 10*3/uL 0.01-0.07 Lab Interpretation (test code = 09673-9) Abnormal [facility] [id number] 16:24:00* Test Item Value Reference Range Interpretation Comme nts POCT PREG (test code = 1605) Negative On board controls acceptable with C Line (test code = 3574) Yes POCT PREG LOT # (test code = 3575) [id number] POCT PREG TEST DATE ( test code = 3576) 04-11-2024 Lab Interpretation (test cod e = 08347-1) [id number] 16:24:00* Test Item Value Reference Range Interpretation Comme nts POCT PREG (test code = 1605) Negative On board controls acceptable with C Line (test code = 3574) Yes POCT PREG LOT # (test code = 3575) [id number] POCT PREG TEST DATE ( test code = 3576) 04-11-2024 Lab Interpretation (test cod e = 69789-6) [facility] [id number] 16:24:00* Test Item Value Reference Range Interpretation Comme nts POCT PREG (test code = 1605) Negative On board controls acceptable with C Line (test code = 3574) Yes POCT PREG LOT # (test code = 3575) [id number] POCT PREG TEST DATE ( test code = 3576) 04-11-2024 Lab Interpretation (test cod e = 79627-6) [facility] [id number] 16:24:00* Test Item Value Reference Range Interpretation Comme nts POCT PREG (test code = 1605) Negative On board controls acceptable with C Line (test code = 3574) Yes POCT PREG LOT # (test code = 3575) [id number] POCT PREG TEST DATE ( test code = 3576) 04-11-2024 Lab Interpretation (test cod e = 14196-8) [facility] [id number] 16:24:00* Test Item Value Reference Range Interpretation Comme nts POCT PREG (test code = 1605) Negative On board controls acceptable with C Line (test code = 3574) Yes POCT PREG LOT # (test code = 3575) [id number] POCT PREG TEST DATE ( test code = 3576) 04-11-2024 Lab Interpretation (test cod e = 17453-8) [facility] [id number] 16:24:00* Test Item Value Reference Range Interpretation Comme nts POCT PREG (test code = 1605) Negative On board controls acceptable with C Line (test code = 3574) Yes POCT PREG LOT # (test code = 3575) [id number] POCT PREG TEST DATE ( test code = 3576) 04-11-2024 Lab Interpretation (test cod e = 68575-8) [facility] [id number] 16:24:00* Test Item Value Reference Range Interpretation Comme nts POCT PREG (test code = 1605) Negative On board controls acceptable with C Line (test code = 3574) Yes POCT PREG LOT # (test code = 3575) [id number] POCT PREG TEST DATE ( test code = 3576) 04-11-2024 Lab Interpretation (test cod e = 46220-5) [facility] [id number] 16:24:00* Test Item Value Reference Range Interpretation Comme nts POCT PREG (test code = 1605) Negative On board controls acceptable with C Line (test code = 3574) Yes POCT PREG LOT # (test code = 3575) [id number] POCT PREG TEST DATE ( test code = 3576) 04-11-2024 Lab Interpretation (test cod e = 59818-1) [facility] [id number] 16:24:00* Test Item Value Reference Range Interpretation Comme nts POCT PREG (test code = 1605) Negative On board controls acceptable with C Line (test code = 3574) Yes POCT PREG LOT # (test code = 3575) [id number] POCT PREG TEST DATE ( test code = 3576) 04-11-2024 Lab Interpretation (test cod e = 91862-3) [facility] [id number] 16:24:00* Test Item Value Reference Range Interpretation Comme nts POCT PREG (test code = 1605) Negative On board controls acceptable with C Line (test code = 3574) Yes POCT PREG LOT # (test code = 3575) [id number] POCT PREG TEST DATE ( test code = 3576) 04-11-2024 Lab Interpretation (test cod e = 85298-9) [facility] [id number] 16:24:00* Test Item Value Reference Range Interpretation Comme nts POCT PREG (test code = 1605) Negative On board controls acceptable with C Line (test code = 3574) Yes POCT PREG LOT # (test code = 3575) [id number] POCT PREG TEST DATE ( test code = 3576) 04-11-2024 Lab Interpretation (test cod e = 30564-2) [facility] [id number] 16:24:00* Test Item Value Reference Range Interpretation Comme nts POCT PREG (test code = 1605) Negative On board controls acceptable with C Line (test code = 3574) Yes POCT PREG LOT # (test code = 3575) [id number] POCT PREG TEST DATE ( test code = 3576) 04-11-2024 Lab Interpretation (test cod e = 07980-2) [facility] [id number] 16:24:00* Test Item Value Reference Range Interpretation Comme nts POCT PREG (test code = 1605) Negative On board controls acceptable with C Line (test code = 3574) Yes POCT PREG LOT # (test code = 3575) [id number] POCT PREG TEST DATE ( test code = 3576) 04-11-2024 Lab Interpretation (test cod e = 66431-2) [facility] [id number] 16:24:00* Test Item Value Reference Range Interpretation Comme nts POCT PREG (test code = 1605) Negative On board controls acceptable with C Line (test code = 3574) Yes POCT PREG LOT # (test code = 3575) [id number] POCT PREG TEST DATE ( test code = 3576) 04-11-2024 Lab Interpretation (test cod e = 09271-2) [facility] [id number] 16:24:00* Test Item Value Reference Range Interpretation Comme nts POCT PREG (test code = 1605) Negative On board controls acceptable with C Line (test code = 3574) Yes POCT PREG LOT # (test code = 3575) [id number] POCT PREG TEST DATE ( test code = 3576) 04-11-2024 Lab Interpretation (test cod e = 77983-0) [facility] [id number] 16:24:00* Test Item Value Reference Range Interpretation Comme nts POCT PREG (test code = 1605) Negative On board controls acceptable with C Line (test code = 3574) Yes POCT PREG LOT # (test code = 3575) [id number] POCT PREG TEST DATE ( test code = 3576) 04-11-2024 Lab Interpretation (test cod e = 13989-2) [facility] [id number] 16:24:00* Test Item Value Reference Range Interpretation Comme nts POCT PREG (test code = 1605) Negative On board controls acceptable with C Line (test code = 3574) Yes POCT PREG LOT # (test code = 3575) [id number] POCT PREG TEST DATE ( test code = 3576) 04-11-2024 Lab Interpretation (test cod e = 16061-6) Normal [facility] [id number] 16:24:00* Test Item Value Reference Range Interpretation Comme nts POCT PREG (test code = 1605) Negative On board controls acceptable with C Line (test code = 3574) Yes POCT PREG LOT # (test code = 3575) [id number] POCT PREG TEST DATE ( test code = 3576) 04-11-2024 Lab Interpretation (test cod e = 87029-3) [facility] ONLY CELIAC SCREEN [id number] 19:09:14 * Test Item Value Reference Range Interpretation Comme nts Tissue Transglutaminase (tTG) Ab, IgA Interpretation (test code = 43329-5) Negative Negative Deamidated Gliadin Peptide (DGP) Ab, IgA Interpretation (test code = 32602-8) Negative Negative Tissue Transglutaminase (tTG) Ab, IgA (test code = 9030159493) <=7.0 Deamidated Gliadin Peptide (DGP) Ab, IgA (test code = 2162653053) 0.4 U/mL <=7.0 ZAINAB (test code = ZAINAB) < 7 U/mL ? Negative7 - 10 U/mL ?Equivocal> 10 U/mL ?Positive In case of equivocal results, we recommend to retest the patient after 8 -12 weeks. Lab Interpretation (test code = 16409-9) Normal [facility] ONLY CELIAC SCREEN [id number] 19:09:14 * Test Item Value Reference Range Interpretation Comme nts Tissue Transglutaminase (tTG) Ab, IgA Interpretation (test code = 42182-4) Negative Negative Deamidated Gliadin Peptide (DGP) Ab, IgA Interpretation (test code = 20627-4) Negative Negative Tissue Transglutaminase (tTG) Ab, IgA (test code = 8945297752) <=7.0 Deamidated Gliadin Peptide (DGP) Ab, IgA (test code = 6594019913) 0.4 U/mL <=7.0 ZAINAB (test code = ZAINAB) < 7 U/mL ? Negative7 - 10 U/mL ?Equivocal> 10 U/mL ?Positive In case of equivocal results, we recommend to retest the patient after 8 -12 weeks. Lab Interpretation (test code = 70993-5) Normal [facility] ONLY CELIAC SCREEN [id number] 19:09:14 * Test Item Value Reference Range Interpretation Comme nts Tissue Transglutaminase (tTG) Ab, IgA Interpretation (test code = 76392-8) Negative Negative Deamidated Gliadin Peptide (DGP) Ab, IgA Interpretation (test code = 87799-2) Negative Negative Tissue Transglutaminase (tTG) Ab, IgA (test code = 9171692373) <=7.0 Deamidated Gliadin Peptide (DGP) Ab, IgA (test code = 7959503641) 0.4 U/mL <=7.0 ZAINAB (test code = ZAINAB) < 7 U/mL ? Negative7 - 10 U/mL ?Equivocal> 10 U/mL ?Positive In case of equivocal results, we recommend to retest the patient after 8 -12 weeks. Lab Interpretation (test code = 40669-6) Normal [facility] ONLY CELIAC SCREEN [id number] 19:09:14 * Test Item Value Reference Range Interpretation Comme nts Tissue Transglutaminase (tTG) Ab, IgA Interpretation (test code = 40315-6) Negative Negative Deamidated Gliadin Peptide (DGP) Ab, IgA Interpretation (test code = 43266-7) Negative Negative Tissue Transglutaminase (tTG) Ab, IgA (test code = 0991115013) <=7.0 Deamidated Gliadin Peptide (DGP) Ab, IgA (test code = 7271663916) 0.4 U/mL <=7.0 ZAINAB (test code = ZAINAB) < 7 U/mL ? Negative7 - 10 U/mL ?Equivocal> 10 U/mL ?Positive In case of equivocal results, we recommend to retest the patient after 8 -12 weeks. Lab Interpretation (test code = 19383-8) Normal [facility] ONLY CELIAC SCREEN [id number] 19:09:14 * Test Item Value Reference Range Interpretation Comme nts Tissue Transglutaminase (tTG) Ab, IgA Interpretation (test code = 41872-4) Negative Negative Deamidated Gliadin Peptide (DGP) Ab, IgA Interpretation (test code = 14156-8) Negative Negative Tissue Transglutaminase (tTG) Ab, IgA (test code = 7421290551) <=7.0 Deamidated Gliadin Peptide (DGP) Ab, IgA (test code = 5793904275) 0.4 U/mL <=7.0 ZAINAB (test code = ZAINAB) < 7 U/mL ? Negative7 - 10 U/mL ?Equivocal> 10 U/mL ?Positive In case of equivocal results, we recommend to retest the patient after 8 -12 weeks. Lab Interpretation (test code = 98102-0) Normal [facility] ONLY CELIAC SCREEN [id number] 19:09:14 * Test Item Value Reference Range Interpretation Comme nts Tissue Transglutaminase (tTG) Ab, IgA Interpretation (test code = 18672-7) Negative Negative Deamidated Gliadin Peptide (DGP) Ab, IgA Interpretation (test code = 80864-3) Negative Negative Tissue Transglutaminase (tTG) Ab, IgA (test code = 0865056484) <=7.0 Deamidated Gliadin Peptide (DGP) Ab, IgA (test code = 9464885651) 0.4 U/mL <=7.0 ZAINAB (test code = ZAINAB) < 7 U/mL ? Negative7 - 10 U/mL ?Equivocal> 10 U/mL ?Positive In case of equivocal results, we recommend to retest the patient after 8 -12 weeks. Lab Interpretation (test code = 70312-4) Normal [facility] ONLY CELIAC SCREEN [id number] 19:09:14 * Test Item Value Reference Range Interpretation Comme nts Tissue Transglutaminase (tTG) Ab, IgA Interpretation (test code = 76843-9) Negative Negative Deamidated Gliadin Peptide (DGP) Ab, IgA Interpretation (test code = 37199-7) Negative Negative Tissue Transglutaminase (tTG) Ab, IgA (test code = 9568757045) <=7.0 Deamidated Gliadin Peptide (DGP) Ab, IgA (test code = 1462092649) 0.4 U/mL <=7.0 ZAINAB (test code = ZAINAB) < 7 U/mL ? Negative7 - 10 U/mL ?Equivocal> 10 U/mL ?Positive In case of equivocal results, we recommend to retest the patient after 8 -12 weeks. Lab Interpretation (test code = 27029-3) Normal [facility] ONLY CELIAC SCREEN [id number] 19:09:14 * Test Item Value Reference Range Interpretation Comme nts Tissue Transglutaminase (tTG) Ab, IgA Interpretation (test code = 01348-4) Negative Negative Deamidated Gliadin Peptide (DGP) Ab, IgA Interpretation (test code = 15061-4) Negative Negative Tissue Transglutaminase (tTG) Ab, IgA (test code = 4064919415) <=7.0 Deamidated Gliadin Peptide (DGP) Ab, IgA (test code = 5742729564) 0.4 U/mL <=7.0 ZAINAB (test code = ZAINAB) < 7 U/mL ? Negative7 - 10 U/mL ?Equivocal> 10 U/mL ?Positive In case of equivocal results, we recommend to retest the patient after 8 -12 weeks. Lab Interpretation (test code = 52838-1) Normal [facility] ONLY CELIAC SCREEN [id number] 19:09:14 * Test Item Value Reference Range Interpretation Comme nts Tissue Transglutaminase (tTG) Ab, IgA Interpretation (test code = 96836-8) Negative Negative Deamidated Gliadin Peptide (DGP) Ab, IgA Interpretation (test code = 22712-7) Negative Negative Tissue Transglutaminase (tTG) Ab, IgA (test code = 3400641495) <=7.0 Deamidated Gliadin Peptide (DGP) Ab, IgA (test code = 8927945787) 0.4 U/mL <=7.0 ZAINAB (test code = ZAINAB) < 7 U/mL ? Negative7 - 10 U/mL ?Equivocal> 10 U/mL ?Positive In case of equivocal results, we recommend to retest the patient after 8 -12 weeks. Lab Interpretation (test code = 11588-3) Normal [facility] ONLY CELIAC SCREEN [id number] 19:09:14 * Test Item Value Reference Range Interpretation Comme nts Tissue Transglutaminase (tTG) Ab, IgA Interpretation (test code = 85971-4) Negative Negative Deamidated Gliadin Peptide (DGP) Ab, IgA Interpretation (test code = 63074-8) Negative Negative Tissue Transglutaminase (tTG) Ab, IgA (test code = 5009634142) <=7.0 Deamidated Gliadin Peptide (DGP) Ab, IgA (test code = 7613238799) 0.4 U/mL <=7.0 ZAINAB (test code = ZAINAB) < 7 U/mL ? Negative7 - 10 U/mL ?Equivocal> 10 U/mL ?Positive In case of equivocal results, we recommend to retest the patient after 8 -12 weeks. Lab Interpretation (test code = 85747-4) Normal [facility] ONLY CELIAC SCREEN [id number] 19:09:14 * Test Item Value Reference Range Interpretation Comme nts Tissue Transglutaminase (tTG) Ab, IgA Interpretation (test code = 33631-5) Negative Negative Deamidated Gliadin Peptide (DGP) Ab, IgA Interpretation (test code = 77884-0) Negative Negative Tissue Transglutaminase (tTG) Ab, IgA (test code = 5750766776) <=7.0 Deamidated Gliadin Peptide (DGP) Ab, IgA (test code = 5953884952) 0.4 U/mL <=7.0 ZAINAB (test code = ZAINAB) < 7 U/mL ? Negative7 - 10 U/mL ?Equivocal> 10 U/mL ?Positive In case of equivocal results, we recommend to retest the patient after 8 -12 weeks. Lab Interpretation (test code = 04876-1) Normal [facility] ONLY CELIAC SCREEN [id number] 19:09:14 * Test Item Value Reference Range Interpretation Comme nts Tissue Transglutaminase (tTG) Ab, IgA Interpretation (test code = 62199-1) Negative Negative Deamidated Gliadin Peptide (DGP) Ab, IgA Interpretation (test code = 34743-5) Negative Negative Tissue Transglutaminase (tTG) Ab, IgA (test code = 1557556244) <=7.0 Deamidated Gliadin Peptide (DGP) Ab, IgA (test code = 4106280863) 0.4 U/mL <=7.0 ZAINAB (test code = ZAINAB) < 7 U/mL ? Negative7 - 10 U/mL ?Equivocal> 10 U/mL ?Positive In case of equivocal results, we recommend to retest the patient after 8 -12 weeks. Lab Interpretation (test code = 15154-7) [facility] [id number] 20:24:44* Test Item Value Reference Range Interpretation Comme nts Total IgA (test code = 3518963120) 78.3 U/mL 70-312 Lab Interpretation (test cod e = 59123-6) [facility] [id number] 20:24:44* Test Item Value Reference Range Interpretation Comme nts Total IgA (test code = 9604954190) 78.3 U/mL 70-312 Lab Interpretation (test cod e = 88165-0) [facility] [id number] 20:24:44* Test Item Value Reference Range Interpretation Comme nts Total IgA (test code = 8217614415) 78.3 U/mL 70-312 Lab Interpretation (test cod e = 51714-6) [facility] [id number] 20:24:44* Test Item Value Reference Range Interpretation Comme nts Total IgA (test code = 3091252371) 78.3 U/mL 70-312 Lab Interpretation (test cod e = 77938-9) Normal [facility] [id number] 20:24:44* Test Item Value Reference Range Interpretation Comme nts Total IgA (test code = 6560833289) 78.3 U/mL 70-312 Lab Interpretation (test cod e = 97113-1) Normal [facility] [id number] 20:24:44* Test Item Value Reference Range Interpretation Comme nts Total IgA (test code = 9648392145) 78.3 U/mL 70-312 Lab Interpretation (test cod e = 23694-2) Normal [facility] [id number] 20:24:44* Test Item Value Reference Range Interpretation Comme nts Total IgA (test code = 0384683614) 78.3 U/mL 70-312 Lab Interpretation (test cod e = 11689-5) Normal [facility] [id number] 20:24:44* Test Item Value Reference Range Interpretation Comme nts Total IgA (test code = 3129051845) 78.3 U/mL 70-312 Lab Interpretation (test cod e = 18912-7) Normal [facility] [id number] 20:24:44* Test Item Value Reference Range Interpretation Comme nts Total IgA (test code = 5810113529) 78.3 U/mL 70-312 Lab Interpretation (test cod e = 20888-9) Normal [facility] [id number] 20:24:44* Test Item Value Reference Range Interpretation Comme nts Total IgA (test code = 6287285262) 78.3 U/mL 70-312 Lab Interpretation (test cod e = 51519-9) Normal [facility] [id number] 20:24:44* Test Item Value Reference Range Interpretation Comme nts Total IgA (test code = 6175134123) 78.3 U/mL 70-312 Lab Interpretation (test cod e = 88378-7) Normal [facility] [id number] 20:24:44* Test Item Value Reference Range Interpretation Comme nts Total IgA (test code = 9830300290) 78.3 U/mL 70-312 Lab Interpretation (test cod e = 94529-1) Normal [facility] [id number] 17:30:19* Test Item Value Reference Range Interpretation Comme nts FERRITIN (test code = 6391343013) 4.8 ng/mL 6.0-137.0 L ZAINAB (test code = ZAINAB) Biotin has been reported to cause a negative bias, interpret results relative to patient's use of biotin. Lab Interpretation (test code = 33651-3) Abnormal [facility] [id number] 17:30:19* Test Item Value Reference Range Interpretation Comme nts FERRITIN (test code = 6761798989) 4.8 ng/mL 6.0-137.0 L ZAINAB (test code = ZAINAB) Biotin has been reported to cause a negative bias, interpret results relative to patient's use of biotin. Lab Interpretation (test code = 52607-7) Abnormal [facility] [id number] 17:30:19* Test Item Value Reference Range Interpretation Comme nts FERRITIN (test code = 5304205128) 4.8 ng/mL 6.0-137.0 L ZAINAB (test code = ZAINAB) Biotin has been reported to cause a negative bias, interpret results relative to patient's use of biotin. Lab Interpretation (test code = 35524-1) Abnormal [facility] [id number] 17:30:19* Test Item Value Reference Range Interpretation Comme nts FERRITIN (test code = 0335327089) 4.8 ng/mL 6.0-137.0 L ZAINAB (test code = ZAINAB) Biotin has been reported to cause a negative bias, interpret results relative to patient's use of biotin. Lab Interpretation (test code = 27292-5) Abnormal [facility] [id number] 17:30:19* Test Item Value Reference Range Interpretation Comme nts FERRITIN (test code = 5843303994) 4.8 ng/mL 6.0-137.0 L ZAINAB (test code = ZAINAB) Biotin has been reported to cause a negative bias, interpret results relative to patient's use of biotin. Lab Interpretation (test code = 67887-9) Abnormal [facility] [id number] 17:30:19* Test Item Value Reference Range Interpretation Comme nts FERRITIN (test code = 7739235987) 4.8 ng/mL 6.0-137.0 L ZAINAB (test code = ZAINAB) Biotin has been reported to cause a negative bias, interpret results relative to patient's use of biotin. Lab Interpretation (test code = 28836-0) Abnormal [facility] [id number] 17:30:19* Test Item Value Reference Range Interpretation Comme nts FERRITIN (test code = 1612113148) 4.8 ng/mL 6.0-137.0 L ZAINAB (test code = ZAINAB) Biotin has been reported to cause a negative bias, interpret results relative to patient's use of biotin. Lab Interpretation (test code = 41657-1) Abnormal [facility] [id number] 17:30:19* Test Item Value Reference Range Interpretation Comme nts FERRITIN (test code = 3770259521) 4.8 ng/mL 6.0-137.0 L ZAINAB (test code = ZAINAB) Biotin has been reported to cause a negative bias, interpret results relative to patient's use of biotin. Lab Interpretation (test code = 92768-3) Abnormal [facility] [id number] 17:30:19* Test Item Value Reference Range Interpretation Comme nts FERRITIN (test code = 6003982404) 4.8 ng/mL 6.0-137.0 L ZAINAB (test code = ZAINAB) Biotin has been reported to cause a negative bias, interpret results relative to patient's use of biotin. Lab Interpretation (test code = 30609-3) Abnormal [facility] [id number] 17:30:19* Test Item Value Reference Range Interpretation Comme nts FERRITIN (test code = 6137011005) 4.8 ng/mL 6.0-137.0 L ZAINAB (test code = ZAINAB) Biotin has been reported to cause a negative bias, interpret results relative to patient's use of biotin. Lab Interpretation (test code = 67699-3) Abnormal [facility] [id number] 17:30:19* Test Item Value Reference Range Interpretation Comme nts FERRITIN (test code = 1122260804) 4.8 ng/mL 6.0-137.0 L ZAINAB (test code = ZAINAB) Biotin has been reported to cause a negative bias, interpret results relative to patient's use of biotin. Lab Interpretation (test code = 98864-8) [facility] [id number] 17:30:19* Test Item Value Reference Range Interpretation Comme nts FERRITIN (test code = 0521224397) 4.8 ng/mL 6.0-137.0 L ZAINAB (test code = ZAINAB) Biotin has been reported to cause a negative bias, interpret results relative to patient's use of biotin. Lab Interpretation (test code = 66501-1) Abnormal [facility] [id number] 17:03:34* Test Item Value Reference Range Interpretation Comme nts IRON (test code = 3351201952) 34 ug/dL 50-160 L TIBC (test code = 2560775596) 515 ug/dL 250-410 H % FE SAT (test code = 1591933293) 7 % 20-50 L Lab Interpretation (test cod e = 14475-8) Abnormal [facility] [id number] 17:03:34* Test Item Value Reference Range Interpretation Comme nts IRON (test code = 0489349037) 34 ug/dL 50-160 L TIBC (test code = 1589423505) 515 ug/dL 250-410 H % FE SAT (test code = 9607760028) 7 % 20-50 L Lab Interpretation (test cod e = 68200-2) Abnormal [facility] [id number] 17:03:34* Test Item Value Reference Range Interpretation Comme nts IRON (test code = 9793275922) 34 ug/dL 50-160 L TIBC (test code = 8608584375) 515 ug/dL 250-410 H % FE SAT (test code = 4798182883) 7 % 20-50 L Lab Interpretation (test cod e = 80709-7) Abnormal [facility] [id number] 17:03:34* Test Item Value Reference Range Interpretation Comme nts IRON (test code = 6723999537) 34 ug/dL 50-160 L TIBC (test code = 5530432522) 515 ug/dL 250-410 H % FE SAT (test code = 5913505677) 7 % 20-50 L Lab Interpretation (test cod e = 18343-6) Abnormal [facility] [id number] 17:03:34* Test Item Value Reference Range Interpretation Comme nts IRON (test code = 1360522642) 34 ug/dL 50-160 L TIBC (test code = 3773939109) 515 ug/dL 250-410 H % FE SAT (test code = 0067374311) 7 % 20-50 L Lab Interpretation (test cod e = 46885-1) Abnormal [facility] [id number] 17:03:34* Test Item Value Reference Range Interpretation Comme nts IRON (test code = 8253428731) 34 ug/dL 50-160 L TIBC (test code = 9441984790) 515 ug/dL 250-410 H % FE SAT (test code = 0448706365) 7 % 20-50 L Lab Interpretation (test cod e = 37859-9) Abnormal [facility]2023-09-07 17:03:34* Test Item Value Reference Range Interpretation Comme nts IRON (test code = 3935720606) 34 ug/dL 50-160 L TIBC (test code = 6417408030) 515 ug/dL 250-410 H % FE SAT (test code = 7341948667) 7 % 20-50 L Lab Interpretation (test cod e = 02567-6) Abnormal [facility]2023-09-07 17:03:34* Test Item Value Reference Range Interpretation Comme nts IRON (test code = 2577945026) 34 ug/dL 50-160 L TIBC (test code = 3259792837) 515 ug/dL 250-410 H % FE SAT (test code = 3224428443) 7 % 20-50 L Lab Interpretation (test cod e = 36662-5) Abnormal [facility]2023-09-07 17:03:34* Test Item Value Reference Range Interpretation Comme nts IRON (test code = 4394081775) 34 ug/dL 50-160 L TIBC (test code = 0085556422) 515 ug/dL 250-410 H % FE SAT (test code = 9185906095) 7 % 20-50 L Lab Interpretation (test cod e = 10516-2) Abnormal [place] [id number] 17:03:34* Test Item Value Reference Range Interpretation Comme nts IRON (test code = 1819039894) 34 ug/dL 50-160 L TIBC (test code = 8525041366) 515 ug/dL 250-410 H % FE SAT (test code = 4938616042) 7 % 20-50 L Lab Interpretation (test cod e = 33669-8) Abnormal [facility]2023-09-07 17:03:34* Test Item Value Reference Range Interpretation Comme nts IRON (test code = 9050917967) 34 ug/dL 50-160 L TIBC (test code = 9708412024) 515 ug/dL 250-410 H % FE SAT (test code = 7035523858) 7 % 20-50 L Lab Interpretation (test cod e = 56975-6) Abnormal [facility]2023-09-07 17:03:34* Test Item Value Reference Range Interpretation Comme nts IRON (test code = 2079660564) 34 ug/dL 50-160 L TIBC (test code = 0943220748) 515 ug/dL 250-410 H % FE SAT (test code = 9318245177) 7 % 20-50 L Lab Interpretation (test cod e = 87277-1) Abnormal [facility]2023-08-24 19:48:06* Test Item Value Reference Range Interpretation Comme nts Smiley (test code = 3656957067) 0.5 mmol/L 0.6-1.2 L ZAINAB (test code = ZAINAB) Toxic Range: ? Greater than 1.2 mmol/L Lab Interpretation (test code = 55378-4) Abnormal [facility]2023-08-24 19:48:06* Test Item Value Reference Range Interpretation Comme nts Smiley (test code = 4487403382) 0.5 mmol/L 0.6-1.2 L ZAINAB (test code = ZAINAB) Toxic Range: ? Greater than 1.2 mmol/L Lab Interpretation (test code = 25377-7) Abnormal [facility]2023-08-24 19:48:06* Test Item Value Reference Range Interpretation Comme nts Smiley (test code = 8833317114) 0.5 mmol/L 0.6-1.2 L ZAINAB (test code = ZAINAB) Toxic Range: ? Greater than 1.2 mmol/L Lab Interpretation (test code = 70893-2) Abnormal [facility]2023-08-24 19:48:06* Test Item Value Reference Range Interpretation Comme nts Smiley (test code = 4952818479) 0.5 mmol/L 0.6-1.2 L ZAINAB (test code = ZAINAB) Toxic Range: ? Greater than 1.2 mmol/L Lab Interpretation (test code = 06690-2) Abnormal [facility]2023-08-24 19:48:06* Test Item Value Reference Range Interpretation Comme nts Smiley (test code = 4784367579) 0.5 mmol/L 0.6-1.2 L ZAINAB (test code = ZAINAB) Toxic Range: ? Greater than 1.2 mmol/L Lab Interpretation (test code = 83269-8) Abnormal [facility]2023-08-24 19:48:06* Test Item Value Reference Range Interpretation Comme nts Smiley (test code = 8530972493) 0.5 mmol/L 0.6-1.2 L ZAINAB (test code = ZAINAB) Toxic Range: ? Greater than 1.2 mmol/L Lab Interpretation (test code = 41961-3) Abnormal [facility]2023-08-24 19:48:06* Test Item Value Reference Range Interpretation Comme nts Smiley (test code = 2634002115) 0.5 mmol/L 0.6-1.2 L ZAINAB (test code = ZAINAB) Toxic Range: ? Greater than 1.2 mmol/L Lab Interpretation (test code = 46538-8) Abnormal [facility]2023-08-24 19:48:06* Test Item Value Reference Range Interpretation Comme nts Smiley (test code = 7046927568) 0.5 mmol/L 0.6-1.2 L ZAINAB (test code = ZAINAB) Toxic Range: ? Greater than 1.2 mmol/L Lab Interpretation (test code = 01894-0) Abnormal [facility]2023-08-24 19:48:06* Test Item Value Reference Range Interpretation Comme nts Smiley (test code = 5611757019) 0.5 mmol/L 0.6-1.2 L ZAINAB (test code = ZAINAB) Toxic Range: ? Greater than 1.2 mmol/L Lab Interpretation (test code = 06985-8) Abnormal [facility]2023-08-24 19:48:06* Test Item Value Reference Range Interpretation Comme nts Smiley (test code = 2202594291) 0.5 mmol/L 0.6-1.2 L ZAINAB (test code = ZAINAB) Toxic Range: ? Greater than 1.2 mmol/L Lab Interpretation (test code = 64794-5) Abnormal [facility]2023-08-24 19:48:06* Test Item Value Reference Range Interpretation Comme nts Smiley (test code = 9838754548) 0.5 mmol/L 0.6-1.2 L ZAINAB (test code = ZAINAB) Toxic Range: ? Greater than 1.2 mmol/L Lab Interpretation (test code = 60600-2) Abnormal [facility]2023-08-24 19:48:06* Test Item Value Reference Range Interpretation Comme nts Smiley (test code = 8627689798) 0.5 mmol/L 0.6-1.2 L ZAINAB (test code = ZAINAB) Toxic Range: ? Greater than 1.2 mmol/L Lab Interpretation (test code = 09222-1) Abnormal [facility]2023-08-24 19:48:06* Test Item Value Reference Range Interpretation Comme nts Smiley (test code = 2221686562) 0.5 mmol/L 0.6-1.2 L ZAINAB (test code = ZAINAB) Toxic Range: ? Greater than 1.2 mmol/L Lab Interpretation (test code = 27316-7) Abnormal [facility]2023-08-24 19:48:06* Test Item Value Reference Range Interpretation Comme nts Smiley (test code = 3807278783) 0.5 mmol/L 0.6-1.2 L ZAINAB (test code = ZAINAB) Toxic Range: ? Greater than 1.2 mmol/L Lab Interpretation (test code = 58613-2) [facility] [id number] 17:24:34 * Test Item Value Reference Range Interpretation Comme nts TSH (test code = 6052211872) 1.07 See_Comment [Automated messa ge] The system which generated this result transmitted reference range: 0.45 - 4.70 mIU/L. The reference range was not used to interpret this result as normal/abnormal. Lab Interpretation (test code = 80084-8) Normal [facility] [id number] 17:24:34 * Test Item Value Reference Range Interpretation Comme nts TSH (test code = 8999835322) 1.07 See_Comment [Automated messa ge] The system which generated this result transmitted reference range: 0.45 - 4.70 mIU/L. The reference range was not used to interpret this result as normal/abnormal. Lab Interpretation (test code = 27985-4) [facility] 17:24:34 * Test Item Value Reference Range Interpretation Comme nts TSH (test code = 1145578384) 1.07 See_Comment [Automated messa ge] The system which generated this result transmitted reference range: 0.45 - 4.70 mIU/L. The reference range was not used to interpret this result as normal/abnormal. Lab Interpretation (test code = 78127-0) Normal [facility] [id number] 17:24:34 * Test Item Value Reference Range Interpretation Comme nts TSH (test code = 4265126015) 1.07 See_Comment [Automated messa ge] The system which generated this result transmitted reference range: 0.45 - 4.70 mIU/L. The reference range was not used to interpret this result as normal/abnormal. Lab Interpretation (test code = 15450-8) Normal [facility] [id number] 17:24:34 * Test Item Value Reference Range Interpretation Comme nts TSH (test code = 3127900294) 1.07 See_Comment [Automated messa ge] The system which generated this result transmitted reference range: 0.45 - 4.70 mIU/L. The reference range was not used to interpret this result as normal/abnormal. Lab Interpretation (test code = 41707-0) Normal [facility] [id number] 17:24:34 * Test Item Value Reference Range Interpretation Comme nts TSH (test code = 3592251184) 1.07 See_Comment [Automated messa ge] The system which generated this result transmitted reference range: 0.45 - 4.70 mIU/L. The reference range was not used to interpret this result as normal/abnormal. Lab Interpretation (test code = 13906-5) Normal [facility] [id number] 17:24:34 * Test Item Value Reference Range Interpretation Comme nts TSH (test code = 3113733589) 1.07 See_Comment [Automated messa ge] The system which generated this result transmitted reference range: 0.45 - 4.70 mIU/L. The reference range was not used to interpret this result as normal/abnormal. Lab Interpretation (test code = 94134-0) [facility] [id number] 17:24:34 * Test Item Value Reference Range Interpretation Comme nts TSH (test code = 5700246770) 1.07 See_Comment [Automated messa ge] The system which generated this result transmitted reference range: 0.45 - 4.70 mIU/L. The reference range was not used to interpret this result as normal/abnormal. Lab Interpretation (test code = 82123-3) [facility] [id number] 17:24:34 * Test Item Value Reference Range Interpretation Comme nts TSH (test code = 0615849783) 1.07 See_Comment [Automated messa ge] The system which generated this result transmitted reference range: 0.45 - 4.70 mIU/L. The reference range was not used to interpret this result as normal/abnormal. Lab Interpretation (test code = 93396-2) Normal [facility] [id number] 17:24:34 * Test Item Value Reference Range Interpretation Comme nts TSH (test code = 6393761447) 1.07 See_Comment [Automated messa ge] The system which generated this result transmitted reference range: 0.45 - 4.70 mIU/L. The reference range was not used to interpret this result as normal/abnormal. Lab Interpretation (test code = 35358-5) Normal [facility] [id number] 17:24:34 * Test Item Value Reference Range Interpretation Comme nts TSH (test code = 9657905780) 1.07 See_Comment [Automated messa ge] The system which generated this result transmitted reference range: 0.45 - 4.70 mIU/L. The reference range was not used to interpret this result as normal/abnormal. Lab Interpretation (test code = 16474-4) Normal [facility] [id number] 17:24:34 * Test Item Value Reference Range Interpretation Comme nts TSH (test code = 4126285956) 1.07 See_Comment [Automated messa ge] The system which generated this result transmitted reference range: 0.45 - 4.70 mIU/L. The reference range was not used to interpret this result as normal/abnormal. Lab Interpretation (test code = 31372-4) Normal [facility] [id number] 17:24:34 * Test Item Value Reference Range Interpretation Comme nts TSH (test code = 4030294362) 1.07 See_Comment [Automated messa ge] The system which generated this result transmitted reference range: 0.45 - 4.70 mIU/L. The reference range was not used to interpret this result as normal/abnormal. Lab Interpretation (test code = 57056-9) Normal [facility] [id number] 17:24:34 * Test Item Value Reference Range Interpretation Comme nts TSH (test code = 8192496162) 1.07 See_Comment [Automated messa ge] The system which generated this result transmitted reference range: 0.45 - 4.70 mIU/L. The reference range was not used to interpret this result as normal/abnormal. Lab Interpretation (test code = 02950-1) Normal [facility] TexasLIP[facility] (44496)(TOTAL CHOLESTEROL, TRIGLYCERIDES, HDL)2022-10-05 16:54:48* Test Item Value Reference Range Interpretation Comme nts CHOL (test code = 6745713029) 183 mg/dL 120-200 HDL (test code = 0877388483) 40 mg/dL >=50 L HDLC RATIO (test code = 0754253052) 4.6 <=4.5 H TRIG (test code = 1328443152) 128 mg/dL 30-170 LDL CHOL (test code = 48869-2) 117 mg/dL <=160 VLDL (test code = 1665060714) 26 mg/dL 5-60 Lab Interpretation (test cod e = 85471-5) Abnormal [facility] (37136)(TOTAL CHOLESTEROL, TRIGLYCERIDES, HDL)2022-10-05 16:54:48* Test Item Value Reference Range Interpretation Comme nts CHOL (test code = 0556114219) 183 mg/dL 120-200 HDL (test code = 9888603460) 40 mg/dL >=50 L HDLC RATIO (test code = 1506230613) 4.6 <=4.5 H TRIG (test code = 1033019879) 128 mg/dL 30-170 LDL CHOL (test code = 40655-5) 117 mg/dL <=160 VLDL (test code = 4571797298) 26 mg/dL 5-60 Lab Interpretation (test cod e = 85792-7) Abnormal [facility] (96849)(TOTAL CHOLESTEROL, TRIGLYCERIDES, HDL)2022-10-05 16:54:48* Test Item Value Reference Range Interpretation Comme nts CHOL (test code = 1148795404) 183 mg/dL 120-200 HDL (test code = 2715875354) 40 mg/dL >=50 L HDLC RATIO (test code = 8449430350) 4.6 <=4.5 H TRIG (test code = 8794433390) 128 mg/dL 30-170 LDL CHOL (test code = 06321-2) 117 mg/dL <=160 VLDL (test code = 0052282771) 26 mg/dL 5-60 Lab Interpretation (test cod e = 84512-4) Abnormal [facility] (97944)(TOTAL CHOLESTEROL, TRIGLYCERIDES, HDL)2022-10-05 16:54:48* Test Item Value Reference Range Interpretation Comme nts CHOL (test code = 8915892628) 183 mg/dL 120-200 HDL (test code = 5965467557) 40 mg/dL >=50 L HDLC RATIO (test code = 4771987353) 4.6 <=4.5 H TRIG (test code = 8251386490) 128 mg/dL 30-170 LDL CHOL (test code = 62017-7) 117 mg/dL <=160 VLDL (test code = 5212280527) 26 mg/dL 5-60 Lab Interpretation (test cod e = 11798-7) Abnormal [facility] (69165)(TOTAL CHOLESTEROL, TRIGLYCERIDES, HDL)2022-10-05 16:54:48* Test Item Value Reference Range Interpretation Comme nts CHOL (test code = 7878872816) 183 mg/dL 120-200 HDL (test code = 5858284373) 40 mg/dL >=50 L HDLC RATIO (test code = 7559893522) 4.6 <=4.5 H TRIG (test code = 0381867866) 128 mg/dL 30-170 LDL CHOL (test code = 69998-5) 117 mg/dL <=160 VLDL (test code = 7101810299) 26 mg/dL 5-60 Lab Interpretation (test cod e = 85634-4) Abnormal [facility] (55136)(TOTAL CHOLESTEROL, TRIGLYCERIDES, HDL)2022-10-05 16:54:48* Test Item Value Reference Range Interpretation Comme nts CHOL (test code = 5882927421) 183 mg/dL 120-200 HDL (test code = 8372044771) 40 mg/dL >=50 L HDLC RATIO (test code = 6899800874) 4.6 <=4.5 H TRIG (test code = 1432971078) 128 mg/dL 30-170 LDL CHOL (test code = 16795-6) 117 mg/dL <=160 VLDL (test code = 5904714813) 26 mg/dL 5-60 Lab Interpretation (test cod e = 69036-8) Abnormal [facility] (26050)(TOTAL CHOLESTEROL, TRIGLYCERIDES, HDL)2022-10-05 16:54:48* Test Item Value Reference Range Interpretation Comme nts CHOL (test code = 8270649166) 183 mg/dL 120-200 HDL (test code = 3014919683) 40 mg/dL >=50 L HDLC RATIO (test code = 0704592831) 4.6 <=4.5 H TRIG (test code = 1683387706) 128 mg/dL 30-170 LDL CHOL (test code = 31148-1) 117 mg/dL <=160 VLDL (test code = 7476648857) 26 mg/dL 5-60 Lab Interpretation (test cod e = 50670-3) Abnormal [facility] (97059)(TOTAL CHOLESTEROL, TRIGLYCERIDES, HDL)2022-10-05 16:54:48* Test Item Value Reference Range Interpretation Comme nts CHOL (test code = 4090010284) 183 mg/dL 120-200 HDL (test code = 3630541367) 40 mg/dL >=50 L HDLC RATIO (test code = 9365290839) 4.6 <=4.5 H TRIG (test code = 8463917429) 128 mg/dL 30-170 LDL CHOL (test code = 86156-7) 117 mg/dL <=160 VLDL (test code = 6474509810) 26 mg/dL 5-60 Lab Interpretation (test cod e = 71538-0) Abnormal [facility] (77162)(TOTAL CHOLESTEROL, TRIGLYCERIDES, HDL)2022-10-05 16:54:48* Test Item Value Reference Range Interpretation Comme nts CHOL (test code = 7689238534) 183 mg/dL 120-200 HDL (test code = 5349260615) 40 mg/dL >=50 L HDLC RATIO (test code = 9376288340) 4.6 <=4.5 H TRIG (test code = 6155416785) 128 mg/dL 30-170 LDL CHOL (test code = 40462-4) 117 mg/dL <=160 VLDL (test code = 7689094261) 26 mg/dL 5-60 Lab Interpretation (test cod e = 92463-1) Abnormal [facility] (11239)(TOTAL CHOLESTEROL, TRIGLYCERIDES, HDL)2022-10-05 16:54:48* Test Item Value Reference Range Interpretation Comme nts CHOL (test code = 7928723233) 183 mg/dL 120-200 HDL (test code = 8956078940) 40 mg/dL >=50 L HDLC RATIO (test code = 5106133864) 4.6 <=4.5 H TRIG (test code = 8387069565) 128 mg/dL 30-170 LDL CHOL (test code = 50293-4) 117 mg/dL <=160 VLDL (test code = 6359244569) 26 mg/dL 5-60 Lab Interpretation (test cod e = 86241-9) Abnormal [facility] (53509)(TOTAL CHOLESTEROL, TRIGLYCERIDES, HDL)2022-10-05 16:54:48* Test Item Value Reference Range Interpretation Comme nts CHOL (test code = 0673216986) 183 mg/dL 120-200 HDL (test code = 4676972713) 40 mg/dL >=50 L HDLC RATIO (test code = 7691035300) 4.6 <=4.5 H TRIG (test code = 2148884391) 128 mg/dL 30-170 LDL CHOL (test code = 16483-4) 117 mg/dL <=160 VLDL (test code = 3476941210) 26 mg/dL 5-60 Lab Interpretation (test cod e = 89536-0) Abnormal [facility] TexasCOMP. METABOLIC PANEL (93916)2022-10-05 16:54:48* Test Item Value Reference Range Interpretation Comme nts NA (test code = 8592539501) 140 mmol/L 135-145 K (test code = 9637281137) 4.6 mmol/L 3.5-5.0 CL (test code = 9937083014) 106 mmol/L 98-108 CO2 TOTAL (test code = 0169600202) 28 mmol/L 23-31 AGAP (test code = 8156833064) 6 2-16 BUN (test code = 6723593960) 5 mg/dL 7-23 L GLUCOSE (test code = 9428683828) 90 mg/dL 70-110 CREATININE (test code = 9899634119) 0.54 mg/dL 0.50-1.04 TOTAL BILI (test code = 0854899266) 0.1 mg/dL 0.1-1.1 CALCIUM (test code = 1283290558) 9.6 mg/dL 8.6-10.6 T PROTEIN (test code = 1232298009) 6.2 g/dL 6.3-8.2 L ALBUMIN (test code = 4247994244) 4.0 g/dL 3.5-5.0 ALK PHOS (test code = 8217584677) 125 U/L 34-122 H ALTv (test code = 1742-6) 29 U/L 5-35 AST(SGOT) (test code = 5388425715) 24 U/L 13-40 eGFR (test code = 7009800669) 122.1 mL/min/1.73m2 ZAINAB (test code = ZAINAB) [...] imaging tests). Lab Interpretation (test code = 39862-1) [facility]normal [facility]02312[facility]TOTAL CHOLESTEROL, TRIGLYCERIDES, HDL)2022-10-05 16:54:48* Test Item Value Reference Range Interpretation Comme nts CHOL (test code = 3934705073) 183 mg/dL 120-200 HDL (test code = 4940714514) 40 mg/dL >=50 L HDLC RATIO (test code = 8255031078) 4.6 <=4.5 H TRIG (test code = 7221463208) 128 mg/dL 30-170 LDL CHOL (test code = 01858-3) 117 mg/dL <=160 VLDL (test code = 7387733368) 26 mg/dL 5-60 Lab Interpretation (test cod e = 18809-5) Abnormal [facility] (03422)2022-10-05 16:54:48* Test Item Value Reference Range Interpretation Comme nts NA (test code = 0151736232) 140 mmol/L 135-145 K (test code = 6020542854) 4.6 mmol/L 3.5-5.0 CL (test code = 0360236218) 106 mmol/L 98-108 CO2 TOTAL (test code = 2450211367) 28 mmol/L 23-31 AGAP (test code = 7505902390) 6 2-16 BUN (test code = 7583360649) 5 mg/dL 7-23 L GLUCOSE (test code = 6508113230) 90 mg/dL 70-110 CREATININE (test code = 1146406875) 0.54 mg/dL 0.50-1.04 TOTAL BILI (test code = 5986701183) 0.1 mg/dL 0.1-1.1 CALCIUM (test code = 4364425182) 9.6 mg/dL 8.6-10.6 T PROTEIN (test code = 3836482319) 6.2 g/dL 6.3-8.2 L ALBUMIN (test code = 7090870450) 4.0 g/dL 3.5-5.0 ALK PHOS (test code = 5623272746) 125 U/L 34-122 H ALTv (test code = 1742-6) 29 U/L 5-35 AST(SGOT) (test code = 7829593558) 24 U/L 13-40 eGFR (test code = 9364874414) 122.1 mL/min/1.73m2 ZAINAB (test code = ZAINAB) [...] imaging tests). Lab Interpretation (test code = 50756-5) Abnormal [facility] (61113)(TOTAL CHOLESTEROL, TRIGLYCERIDES, HDL)2022-10-05 16:54:48* Test Item Value Reference Range Interpretation Comme nts CHOL (test code = 3678105616) 183 mg/dL 120-200 HDL (test code = 8722186715) 40 mg/dL >=50 L HDLC RATIO (test code = 8606435857) 4.6 <=4.5 H TRIG (test code = 0478382375) 128 mg/dL 30-170 LDL CHOL (test code = 73708-0) 117 mg/dL <=160 VLDL (test code = 4895705774) 26 mg/dL 5-60 Lab Interpretation (test cod e = 56583-2) Abnormal [facility] (15547)2022-10-05 16:54:48* Test Item Value Reference Range Interpretation Comme nts NA (test code = 5349310586) 140 mmol/L 135-145 K (test code = 8456652732) 4.6 mmol/L 3.5-5.0 CL (test code = 5984027337) 106 mmol/L 98-108 CO2 TOTAL (test code = 9142882646) 28 mmol/L 23-31 AGAP (test code = 1839376877) 6 2-16 BUN (test code = 6637708526) 5 mg/dL 7-23 L GLUCOSE (test code = 3368526097) 90 mg/dL 70-110 CREATININE (test code = 6725747923) 0.54 mg/dL 0.50-1.04 TOTAL BILI (test code = 1874243999) 0.1 mg/dL 0.1-1.1 CALCIUM (test code = 2798132677) 9.6 mg/dL 8.6-10.6 T PROTEIN (test code = 4747461143) 6.2 g/dL 6.3-8.2 L ALBUMIN (test code = 0513389178) 4.0 g/dL 3.5-5.0 ALK PHOS (test code = 3767800258) 125 U/L 34-122 H ALTv (test code = 1742-6) 29 U/L 5-35 AST(SGOT) (test code = 0713190023) 24 U/L 13-40 eGFR (test code = 8114238443) 122.1 mL/min/1.73m2 ZAINAB (test code = ZAINAB) [...] imaging tests). Lab Interpretation (test code = 93490-0) Abnormal [facility] (06821)(TOTAL CHOLESTEROL, TRIGLYCERIDES, HDL)2022-10-05 16:54:48* Test Item Value Reference Range Interpretation Comme nts CHOL (test code = 9902619144) 183 mg/dL 120-200 HDL (test code = 3400125042) 40 mg/dL >=50 L HDLC RATIO (test code = 6060631196) 4.6 <=4.5 H TRIG (test code = 3392857608) 128 mg/dL 30-170 LDL CHOL (test code = 79992-6) 117 mg/dL <=160 VLDL (test code = 7148262058) 26 mg/dL 5-60 Lab Interpretation (test cod e = 14256-2) Abnormal [facility]GLYCOSYLATED HEMOGLOBIN (A1C)2022-10-05 15:51:11* Test Item Value Reference Range Interpretation Comme nts HGB A1C (test code = 4548-4) 5.1 % 4.0-5.7 ZAINAB (test code = ZAINAB) Reference RangesNormal: <5.7%Prediabetes: 5.7 - 6.4%Diabetes: > 6.5% Lab Interpretation (test code = 25861-3) Normal [facility]OS[facility]GLOBIN (A1C)2022-10-05 15:51:11* Test Item Value Reference Range Interpretation Comme nts HGB A1C (test code = 4548-4) 5.1 % 4.0-5.7 ZAINAB (test code = ZAINAB) Reference RangesNormal: <5.7%Prediabetes: 5.7 - 6.4%Diabetes: > 6.5% Lab Interpretation (test code = 32917-4) Normal [facility]GLYCOSYLATED HEM[facility]GLOBIN (A1C)2022-10-05 15:51:11* Test Item Value Reference Range Interpretation Comme nts HGB A1C (test code = 4548-4) 5.1 % 4.0-5.7 ZAINAB (test code = ZAINAB) Reference RangesNormal: <5.7%Prediabetes: 5.7 - 6.4%Diabetes: > 6.5% Lab Interpretation (test code = 39191-1) [facility]2022-10-05 15:51:11* Test Item Value Reference Range Interpretation Comme nts HGB A1C (test code = 4548-4) 5.1 % 4.0-5.7 ZAINAB (test code = ZAINAB) Reference RangesNormal: <5.7%Prediabetes: 5.7 - 6.4%Diabetes: > 6.5% Lab Interpretation (test code = 36577-9) [facility]GL[facility] (A1C)2022-10-05 15:51:11* Test Item Value Reference Range Interpretation Comme nts HGB A1C (test code = 4548-4) 5.1 % 4.0-5.7 ZAINAB (test code = ZAINAB) Reference RangesNormal: <5.7%Prediabetes: 5.7 - 6.4%Diabetes: > 6.5% Lab Interpretation (test code = 62336-1) [facility]GL[facility] (A1C)2022-10-05 15:51:11* Test Item Value Reference Range Interpretation Comme nts HGB A1C (test code = 4548-4) 5.1 % 4.0-5.7 ZAINAB (test code = ZAINAB) Reference RangesNormal: <5.7%Prediabetes: 5.7 - 6.4%Diabetes: > 6.5% Lab Interpretation (test code = 07121-4) [facility]GL[facility] (A1C)2022-10-05 15:51:11* Test Item Value Reference Range Interpretation Comme nts HGB A1C (test code = 4548-4) 5.1 % 4.0-5.7 ZAINAB (test code = ZAINAB) Reference RangesNormal: <5.7%Prediabetes: 5.7 - 6.4%Diabetes: > 6.5% Lab Interpretation (test code = 76661-1) [facility]GL[facility] (A1C)2022-10-05 15:51:11* Test Item Value Reference Range Interpretation Comme nts HGB A1C (test code = 4548-4) 5.1 % 4.0-5.7 ZAINAB (test code = ZAINAB) Reference RangesNormal: <5.7%Prediabetes: 5.7 - 6.4%Diabetes: > 6.5% Lab Interpretation (test code = 85803-1) [facility]GL[facility] (A1C)2022-10-05 15:51:11* Test Item Value Reference Range Interpretation Comme nts HGB A1C (test code = 4548-4) 5.1 % 4.0-5.7 ZAINAB (test code = ZAINAB) Reference RangesNormal: <5.7%Prediabetes: 5.7 - 6.4%Diabetes: > 6.5% Lab Interpretation (test code = 24965-0) [facility]GL[facility] (A1C)2022-10-05 15:51:11* Test Item Value Reference Range Interpretation Comme nts HGB A1C (test code = 4548-4) 5.1 % 4.0-5.7 ZAINAB (test code = ZAINAB) Reference RangesNormal: <5.7%Prediabetes: 5.7 - 6.4%Diabetes: > 6.5% Lab Interpretation (test code = 92833-4) [facility]GL[facility] (A1C)2022-10-05 15:51:11* Test Item Value Reference Range Interpretation Comme nts HGB A1C (test code = 4548-4) 5.1 % 4.0-5.7 ZAINAB (test code = ZAINAB) Reference RangesNormal: <5.7%Prediabetes: 5.7 - 6.4%Diabetes: > 6.5% Lab Interpretation (test code = 69993-0) [facility]GL[facility] (A1C)2022-10-05 15:51:11* Test Item Value Reference Range Interpretation Comme nts HGB A1C (test code = 4548-4) 5.1 % 4.0-5.7 ZAINAB (test code = ZAINAB) Reference RangesNormal: <5.7%Prediabetes: 5.7 - 6.4%Diabetes: > 6.5% Lab Interpretation (test code = 47087-7) [facility]GL[facility] (A1C)2022-10-05 15:51:11* Test Item Value Reference Range Interpretation Comme nts HGB A1C (test code = 4548-4) 5.1 % 4.0-5.7 ZAINAB (test code = ZAINAB) Reference RangesNormal: <5.7%Prediabetes: 5.7 - 6.4%Diabetes: > 6.5% Lab Interpretation (test code = 92391-5) Normal [facility]GL[facility] (A1C)2022-10-05 15:51:11* Test Item Value Reference Range Interpretation Comme nts HGB A1C (test code = 4548-4) 5.1 % 4.0-5.7 ZAINAB (test code = ZAINAB) Reference RangesNormal: <5.7%Prediabetes: 5.7 - 6.4%Diabetes: > 6.5% Lab Interpretation (test code = 42085-4) Normal [facility] TexasCB WITH [id number] 15:20:32* Test Item Value Reference Range Interpretation [...] g/dL 31.6-35.1 L RDW-SD (test code = 82931-1) 47.8 fL 39.0-49.9 RDW-CV (test code = 788-0) 18.0 % 12.0-15.5 H PLT (test code = 777-3) 296 See_Comment [Automated Paperspinea ge] The system which generated this result transmitted reference range: 166 - 358 10*3/?L. The reference range was not used to interpret this result as normal/abnormal. MPV (test code = 04292-4) 10.7 fL 9.5-12.9 NRBC/100 WBC (test code = 8421316027) 0.0 See_Comment [Automated Mosso ssage] The system which generated this result transmitted reference range: 0.0 - 10.0 /100 WBCs. The reference range was not used to interpret this result as normal/abnormal. NRBC x10^3 (test code = 2149444089) See_Comment [Automated [place] ge] The system which generated this result transmitted reference range: 10*3/?L. The reference range was not used to interpret this result as normal/abnormal. GRAN MAT (NEUT) % (test code = 770-8) 70.0 % IMM GRAN % (test code = [id number]) 0.40 % LYMPH % (test code = 736-9) 18.7 % MONO % (test code = 5905-5) 5.7 % EOS % (test code = 713-8) 4.5 % BASO % (test code = 706-2) 0.7 % GRAN MAT x10^3(ANC) (test code = [id number]) 4.66 10*3/uL 1.88-7.09 IMM GRAN x10^3 (test code = [id number]) 0.03 10*3/uL 0.00-0.06 LYMPH x10^3 (test code = 731-0) 1.25 10*3/uL 1.32-3.29 L MONO x10^3 (test code = 742-7) 0.38 10*3/uL 0.33-0.92 EOS x10^3 (test code = 711-2) 0.30 10*3/uL 0.03-0.39 BASO x10^3 (test code = 704-7) 0.05 10*3/uL 0.01-0.07 Lab Interpretation (test code = 25090-4) Abnormal [facility] WITH [id number] 15:20:32* Test Item Value Reference Range Interpretation [...] g/dL 31.6-35.1 L RDW-SD (test code = 05457-2) 47.8 fL 39.0-49.9 RDW-CV (test code = 788-0) 18.0 % 12.0-15.5 H PLT (test code = 777-3) 296 See_Comment [Automated messa ge] The system which generated this result transmitted reference range: 166 - 358 10*3/?L. The reference range was not used to interpret this result as normal/abnormal. MPV (test code = 04686-9) 10.7 fL 9.5-12.9 NRBC/100 WBC (test code = 8839923413) 0.0 See_Comment [Automated Mosso ssage] The system which generated this result transmitted reference range: 0.0 - 10.0 /100 WBCs. The reference range was not used to interpret this result as normal/abnormal. NRBC x10^3 (test code = 9821810361) See_Comment [Automated messa ge] The system which generated this result transmitted reference range: 10*3/?L. The reference range was not used to interpret this result as normal/abnormal. GRAN MAT (NEUT) % (test code = 770-8) 70.0 % IMM GRAN % (test code = 9498561110) 0.40 % LYMPH % (test code = 736-9) 18.7 % MONO % (test code = 5905-5) 5.7 % EOS % (test code = 713-8) 4.5 % BASO % (test code = 706-2) 0.7 % GRAN MAT x10^3(ANC) (test code = 7500258798) 4.66 10*3/uL 1.88-7.09 IMM GRAN x10^3 (test code = 4637664254) 0.03 10*3/uL 0.00-0.06 LYMPH x10^3 (test code = 731-0) 1.25 10*3/uL 1.32-3.29 L MONO x10^3 (test code = 742-7) 0.38 10*3/uL 0.33-0.92 EOS x10^3 (test code = 711-2) 0.30 10*3/uL 0.03-0.39 BASO x10^3 (test code = 704-7) 0.05 10*3/uL 0.01-0.07 Lab Interpretation (test code = 05793-6) Abnormal [facility] WITH [id number] 15:20:32* Test Item Value Reference Range Interpretation [...] g/dL 31.6-35.1 L RDW-SD (test code = 22405-3) 47.8 fL 39.0-49.9 RDW-CV (test code = 788-0) 18.0 % 12.0-15.5 H PLT (test code = 777-3) 296 See_Comment [Automated messa ge] The system which generated this result transmitted reference range: 166 - 358 10*3/?L. The reference range was not used to interpret this result as normal/abnormal. MPV (test code = 90545-2) 10.7 fL 9.5-12.9 NRBC/100 WBC (test code = 8290453905) 0.0 See_Comment [Automated Mosso ssage] The system which generated this result transmitted reference range: 0.0 - 10.0 /100 WBCs. The reference range was not used to interpret this result as normal/abnormal. NRBC x10^3 (test code = 8784896271) See_Comment [Automated messa ge] The system which generated this result transmitted reference range: 10*3/?L. The reference range was not used to interpret this result as normal/abnormal. GRAN MAT (NEUT) % (test code = 770-8) 70.0 % IMM GRAN % (test code = 1028574432) 0.40 % LYMPH % (test code = 736-9) 18.7 % MONO % (test code = 5905-5) 5.7 % EOS % (test code = 713-8) 4.5 % BASO % (test code = 706-2) 0.7 % GRAN MAT x10^3(ANC) (test code = 3352723911) 4.66 10*3/uL 1.88-7.09 IMM GRAN x10^3 (test code = 7685504804) 0.03 10*3/uL 0.00-0.06 LYMPH x10^3 (test code = 731-0) 1.25 10*3/uL 1.32-3.29 L MONO x10^3 (test code = 742-7) 0.38 10*3/uL 0.33-0.92 EOS x10^3 (test code = 711-2) 0.30 10*3/uL 0.03-0.39 BASO x10^3 (test code = 704-7) 0.05 10*3/uL 0.01-0.07 Lab Interpretation (test code = 73309-3) Abnormal [facility]2023-06-14 17:27:33* Test Item Value Reference Range Interpretation Comme nts Smiley (test code = 2831432950) 0.3 mmol/L 0.6-1.2 L ZAINAB (test code = ZAINAB) Toxic Range: ? Greater than 1.2 mmol/L Lab Interpretation (test code = 35213-4) Abnormal [facility]2023-06-14 17:27:33* Test Item Value Reference Range Interpretation Comme nts Smiley (test code = 8774753695) 0.3 mmol/L 0.6-1.2 L ZAINAB (test code = ZAINAB) Toxic Range: ? Greater than 1.2 mmol/L Lab Interpretation (test code = 49311-0) Abnormal [facility]2023-06-14 17:27:33* Test Item Value Reference Range Interpretation Comme nts Smiley (test code = 7745216100) 0.3 mmol/L 0.6-1.2 L ZAINAB (test code = ZAINAB) Toxic Range: ? Greater than 1.2 mmol/L Lab Interpretation (test code = 43431-1) Abnormal [facility]2023-06-14 17:27:33* Test Item Value Reference Range Interpretation Comme nts Smiley (test code = 7357737382) 0.3 mmol/L 0.6-1.2 L ZAINAB (test code = ZAINAB) Toxic Range: ? Greater than 1.2 mmol/L Lab Interpretation (test code = 53862-5) Abnormal [facility]2023-06-14 17:27:33* Test Item Value Reference Range Interpretation Comme nts Smiley (test code = 5223757800) 0.3 mmol/L 0.6-1.2 L ZAINAB (test code = ZAINAB) Toxic Range: ? Greater than 1.2 mmol/L Lab Interpretation (test code = 13026-0) Abnormal [facility]2023-06-14 17:27:33* Test Item Value Reference Range Interpretation Comme nts Smiley (test code = 7775407353) 0.3 mmol/L 0.6-1.2 L ZAINAB (test code = ZAINAB) Toxic Range: ? Greater than 1.2 mmol/L Lab Interpretation (test code = 25362-7) Abnormal [facility]2023-06-14 17:27:33* Test Item Value Reference Range Interpretation Comme nts Smiley (test code = 1094456975) 0.3 mmol/L 0.6-1.2 L ZAINAB (test code = ZAINAB) Toxic Range: ? Greater than 1.2 mmol/L Lab Interpretation (test code = 20899-7) Abnormal [facility]2023-06-14 17:27:33* Test Item Value Reference Range Interpretation Comme nts Smiley (test code = 6858244518) 0.3 mmol/L 0.6-1.2 L ZAINAB (test code = ZAINAB) Toxic Range: ? Greater than 1.2 mmol/L Lab Interpretation (test code = 07272-5) Abnormal [facility]2023-06-14 17:27:33* Test Item Value Reference Range Interpretation Comme nts Smiley (test code = 4718371193) 0.3 mmol/L 0.6-1.2 L ZAINAB (test code = ZAINAB) Toxic Range: ? Greater than 1.2 mmol/L Lab Interpretation (test code = 23562-9) Abnormal [facility]2023-06-14 17:27:33* Test Item Value Reference Range Interpretation Comme nts Smiley (test code = 6446608515) 0.3 mmol/L 0.6-1.2 L ZAINAB (test code = ZAINAB) Toxic Range: ? Greater than 1.2 mmol/L Lab Interpretation (test code = 26856-2) Abnormal [facility]2023-06-14 17:27:33* Test Item Value Reference Range Interpretation Comme nts Smiley (test code = 3005241223) 0.3 mmol/L 0.6-1.2 L ZAINAB (test code = ZAINAB) Toxic Range: ? Greater than 1.2 mmol/L Lab Interpretation (test code = 13860-8) [facility] 17:27:33* Test Item Value Reference Range Interpretation Comme nts Smiley (test code = 0878820338) 0.3 mmol/L 0.6-1.2 L ZAINAB (test code = ZAINAB) Toxic Range: ? Greater than 1.2 mmol/L Lab Interpretation (test code = 88929-2) Abnormal [facility] W/AUTO DIFF WITH [id number] 06:12:05* Test Item Value Reference Range Interpretation [...] 0.00-0.10 ABS NUCLEATED RBCS (test code = 87431) 0.00 K/UL 0.00-0.11 RETICULOCYTE WITH [id number] 06:12:05* Test Item Value Reference Range Interpretation Comme nts RETICULOCYTE COUNT (test code = 1018) 2.50 % 0.80-2.40 H ABSOLUTE RETICULOCYTE (test code = 00602) 103.3 K/UL 32.0-105.0 [facility] has important pathology staff changes effective 04/12/2022. New pathology staff will provide uninterrupted, excellent patient care and clinical consultation. See URL: [email or web address]. UNLESS OTHERWISE INDICATED, ALL TESTING PERFORMED AT [facility] [address] [place] [address] ELECTRICAL/INSTRUMENT TECHNICIAN: CHARLA HERNANDEZ M.D. CLIA NUMBER [id number] [place]. [id number] YAZMIN NON-REFLEX TO [id number] 05:55:49* Test Item Value Reference Range Interpretation Comme nts ANTI-NUCLEAR ANTIBODIES (test code = 3506) NEGATIVE NEGATIVE METHODOLOGY IS I NDIRECT IMMUNOFLUORESCENT ASSAY (IFA) WITH HUMAN EPITHELIAL (HEP-2) CELL LINE SUBSTRATE. FOLATE, [id number] 12:42:51* Test Item Value Reference Range Interpretation [...] . . . NG/ML >1504 TSH, THIRD [id number] 11:05:54* Test Item Value Reference Range Interpretation Comme nts TSH, THIRD GENERATION (test code = 2821) 1.310 UIU/ML 0.400-4.100 VITAMIN [id number] 11:05:54* Test Item Value Reference Range Interpretation Comme nts VITAMIN B-12 (test code = 2840) 436 PG/ML 200-950 VITAMIN D, 25 [id number] 11:03:45* Test Item Value Reference Range Interpretation [...] . . . . NG/ML 30-100 [facility] has important pathology staff changes effective 04/12/2022. New pathology staff will provide uninterrupted, excellent patient care and clinical consultation. See URL: [email or web address]. UNLESS OTHERWISE INDICATED, ALL TESTING PERFORMED AT [facility] [address] [place] [address] ELECTRICAL/INSTRUMENT TECHNICIAN: CHARLA HERNANDEZ M.D. CLIA NUMBER [id number] [place]. [id number] URIC [id number] 05:28:57* Test Item Value Reference Range Interpretation Comme [facility] URIC ACID (test code = 2233) 6.7 MG/DL 2.7-6.1 H COMPREHENSIVE METABOLIC [id number] 05:28:57* Test Item Value Reference Range Interpretation Comme nts GLUCOSE (test code = 2216) 103 MG/DL 70-99 H BUN (test code = 2207) 9 MG/DL 6-20 CREATININE (test code = 2213) 0.72 MG/DL 0.60-1.30 eGFR (2020 CKD-EPI) (test [...] code = 2219) 26 U/L 5-40 LIPID [id number] 05:28:57* Test Item Value Reference Range Interpretation Comme nts CHOLESTEROL (test code = 2209) 207 MG/DL <200 H TRIGLYCERIDES (test code = 2232) 130 MG/DL <150 HDL CHOLESTEROL (test code = 2219) 45 MG/DL >39 CALC LDL CHOL (test code = 223) 137 MG/DL <100 H NOTE: CALCULATED LDL IS BASED ON DOMINIQUE-PEREZ METHOD WHICHINCLUDES ADJUSTABLE TRIGLYCERIDE:VLDL CHOLESTEROL RATIO.THIS FACTOR VARIES BY MEASURED TRIGLYCERIDE AND NON-HDLCHOLESTEROL CONCENTRATIONS WITH INCREASED CALCULATED LDL SEENIN HIGHER TRIGLYCERIDE OR LOWER NON-HDL SPECIMENS. FOR MOREINFORMATION, SEE CLIENT ANNOUNCEMENT AT [email or web address] RISK RATIO LDL/HDL (test code = 2238) 3.04 RATIO <3.22 HEMOGLOBIN [id number] 02:54:46* Test Item Value Reference Range Interpretation Comme nts HEMOGLOBIN A1c (test code = 53233) 5.6 % 4.2-5.6 CBC W/AUTO DIFF WITH [id number] 01:58:18* Test Item Value Reference Range Interpretation [...] = 1065) 0.0 /100 WBC'S See_Comment [Automated Paperspinea ge] The system which generated this result [...] 0.00-0.10 ABS NUCLEATED RBCS (test code = 27363) 0.00 K/UL 0.00-0.11 [id number] 20:05:22* Test Item Value Reference Range Interpretation Comme nts Smiley (test code = 4706427799) 1.1 mmol/L 0.6-1.2 ZAINAB (test code = ZAINAB) Toxic Range: ? Greater than 1.2 mmol/L Lab Interpretation (test code = 36176-4) [facility]2023-01-04 20:05:22* Test Item Value Reference Range Interpretation Comme nts Smiley (test code = 9688021388) 1.1 mmol/L 0.6-1.2 ZAINAB (test code = ZAINAB) Toxic Range: ? Greater than 1.2 mmol/L Lab Interpretation (test code = 39542-3) [facility]2023-01-04 20:05:22* Test Item Value Reference Range Interpretation Comme nts Smiley (test code = 2740828811) 1.1 mmol/L 0.6-1.2 ZAINAB (test code = ZAINAB) Toxic Range: ? Greater than 1.2 mmol/L Lab Interpretation (test code = 52173-0) [facility]2023-01-04 20:05:22* Test Item Value Reference Range Interpretation Comme nts Smiley (test code = 5514768989) 1.1 mmol/L 0.6-1.2 ZAINAB (test code = ZAINAB) Toxic Range: ? Greater than 1.2 mmol/L Lab Interpretation (test code = 70016-5) [facility]2023-01-04 20:05:22* Test Item Value Reference Range Interpretation Comme nts Smiley (test code = 4875272408) 1.1 mmol/L 0.6-1.2 ZAINAB (test code = ZAINAB) Toxic Range: ? Greater than 1.2 mmol/L Lab Interpretation (test code = 08208-4) [facility]2023-01-04 20:05:22* Test Item Value Reference Range Interpretation Comme nts Smiley (test code = 2977352705) 1.1 mmol/L 0.6-1.2 ZAINAB (test code = ZAINAB) Toxic Range: ? Greater than 1.2 mmol/L Lab Interpretation (test code = 05517-7) [place] [id number] 20:05:22* Test Item Value Reference Range Interpretation Comme nts Smiley (test code = 3594900558) 1.1 mmol/L 0.6-1.2 ZAINAB (test code = ZAINAB) Toxic Range: ? Greater than 1.2 mmol/L Lab Interpretation (test code = 79438-5) [place] [address]-01-04 20:05:22* Test Item Value Reference Range Interpretation Comme nts Smiley (test code = 7794123909) 1.1 mmol/L 0.6-1.2 ZAINAB (test code = ZAINAB) Toxic Range: ? Greater than 1.2 mmol/L Lab Interpretation (test code = 63652-5) [facility]2023-01-04 20:05:22* Test Item Value Reference Range Interpretation Comme nts Smiley (test code = 2911533644) 1.1 mmol/L 0.6-1.2 ZAINAB (test code = ZAINAB) Toxic Range: ? Greater than 1.2 mmol/L Lab Interpretation (test code = 08982-7) [place] 502343-01-04 20:05:22* Test Item Value Reference Range Interpretation Comme nts Smiley (test code = 0323269753) 1.1 mmol/L 0.6-1.2 ZAINAB (test code = ZAINAB) Toxic Range: ? Greater than 1.2 mmol/L Lab Interpretation (test code = 57022-1) [facility]2018-07-20 07:27:00* Test [...] mg/dL VERY HIGH.........>/= 190 mg/dL Comments to Search Manager: ADD TO AM LABSLIPID PROFILE (CORONARY [...] code = LDL) MG/DL 0-99 Comments to Search Manager: ADD TO AM LABSPROTHROMBIN [id number] 06:24:00* Test Item Value Reference Range Interpretation [...] systemic embolism. 3.0 - 4.5 Comments to Search Manager: NURSE WILL BRING SPECIMEN TO LABPTT ACTIVATED 2018-07-20 06:24:00* Test Item Value Reference Range Interpretation Comme nts PTT ACTIVATED (test code = APTT) 29.3 SECONDS 22.0-33.0 N Comments to Search Manager: NURSE WILL BRING SPECIMEN TO LABBASIC [...] CA) 9.6 MG/DL 8.4-10.2 N Comments to Search Manager: NURSE WILL BRING SPECIMEN TO LAB Comments to Search Manager: NURSE WILL BRING SPECIMEN TO [id number] 06:13:00* Test Item Value Reference Range Interpretation Comme nts MAGNESIUM (test code = MAG) 2.2 MG/DL 1.6-2.3 N Comments to Search Manager: NURSE WILL BRING SPECIMEN TO LAB Comments to Search Manager: NURSE WILL BRING SPECIMEN TO LABCBC W/AUTO [id number] 06:02:00 * Test Item Value Reference Range [...] Order for Monoferric Infusion was faxed to Aileen Gipson, fax # Fax- [phone]. Fax confirmed as received. I called patient to inform her that order was sent. Kath Westbrook RN [facility] 2023-08-08 12:08:22 I ordered IV iron if you dont mind faxing it. Thank you! [facility] 2023-08-02 15:54:54 Yes if you can send over the last infusion order we sent again to [facility]. Otherwise we can do it when in back next week T [facility] 2023-07-30 15:40:16 Patient called stating that her GI provider said he would order an Iron infusion for patient one more time, but that she would have to follow-up with hematology from now on for iron infusion orders. Patient would like to have the order placed and the infusion done at [facility] as before. There is no mention of this in BAKARI note. Kath Westbrook RN [facility] 2023-07-02 12:20:48 I called patient and [...] Dr. Cordero on 07/26/23. Kath Westbrook RN [facility] 2023-07-02 10:35:15 Pt is requesting orders [...] constantly declining. Pt was life flight to [facility] recently due to a stroke. Pls advise. Vega Gregory [facility] 2023-06-08 02:18:19 Rn went over poc and discharge teaching with pt prior to departure. Iv discontinued and discharge packet went over with pt. Pt verbalizes understanding of education and medications. Pt states that no belogings were left in room. Pt and family departed to [facility]. Pt using ed wheelchair Lizandro Bah RN [facility] 2023-06-08 01:38:45 Patient currently sitting up, drinking water. Patient family to assist patient in changing clothes and then to perform walk test. Patient pending walk test and results at this time. Kiley Darling RN [facility] 2023-06-08 01:29:14 Dr. Pabon at bedside [facility] 2023-06-08 00:00:00 Patient currently resting in ED stretcher, accompanied by visitors at this time. Patient awaiting clinical sobriety for d/c. NAD noted, VSS, RR e/u, bed locked in lowest position with side rails elevated x 2. Patient family denies additional needs at this time, will notify staff if needs anything. [facility] 2023-06-07 22:44:51 Pt straight cath x2 [...] assess and tx per plan of care T Angela Larsen RN [facility] 2023-06-07 22:30:00 Report taken from Armand [...] RR e/u. See neuro focused assessment. T [facility] 2023-06-07 22:06:00 STROKE ALERT CANCELLED per neuro Paged out @ 2206 [facility] 2023-06-07 22:04:19 Neuro resident verbalizes he is canceling the stroke alert. T Puneet Coker RN [facility] 2023-06-07 22:04:00 Stroke orders cancelled per neurology faculty and Dr. Pabon at this time. [facility] 2023-06-07 21:54:[address] Reflexes intact, will not follow commands or speak, however. [facility] 2023-06-07 21:40:[address] stretcher, pt connected to serial VS and cardiac monitoring. Neuro resident in CT In CT, Pt appeared to be selectively following commands and opening eyes. Pt was addressed in both French and Belarusian, yet did not answer questions verbally nor with any head shakes/ nods. Pt resp e/u on RA w equal chest rise and fall. Skin warm dry approp tone. When pt opened eyes on command, PERRLA 4mm. Labs drawn. [facility] 2023-06-07 21:39:01 Shivani Schuler is a 47 [...] pain, VSWNL, NAD noted. Pt to CT T [facility] 2023-06-07 21:35:00 Shivani Schuler is a 47 year old female who presents from home([place]) via [facility] after pt's daughter heard [...] back and forth and squinting eyes shut. T [facility] 2023-06-07 21:32:00 [facility] Emergency Department Note Patient Name: Shivani Schuler Date of : 1975 47 year old female Treatment Room: [address] [place] [address] Primary Care Physician: JAE Holloway Patient Escorted by: Self [9] Mode of Arrival: Air EMS - [facility] Air Med [16] EMS Treatment Prior to ED Arrival: GENERAL NEUROLOGIST treatment: None Travel and Exposure Screening: Symptoms [...] The superior cerebellar arteries are patent. The DIGITAL STRATEGY MANAGER are patent bilaterally. No sizable posterior communicating [...] The superior cerebellar arteries are patent. The DIGITAL STRATEGY MANAGER are patent bilaterally. No sizable posterior communicating [...] I 0.003 <=0.034 ng/mL LITHIUM - Normal Smiley 0.6 0.6 - 1.2 mmol/L ETHANOL ALCOHOL [...] (IMMUNOASSAY) - COMPREHENSIVE DRUG SCREEN W/O REFLEX Smiley O2 Nasal Cannula Orders Placed This Encounter [...] disorder. Disposition/Condition: Discharged home. Marysol Pabon D.O. EM Physician RTI Billing ID #[id number] Marysol Pabon DO 06/08/23 0136 Marysol Pabon DO 06/08/23 0147 [facility] 2023-06-04 10:50:05 I called patient to ascertain what medication she is referring to that was Rxd but not received. No answer, I LVM with my call back number. Kath Westbrook RN [facility] 2023-05-14 11:48:54 Gastroenterolgy appt has been placed. Jessica Pang RN [facility] 2023-05-11 16:55:45 I called patient to [...] [place] for these symptoms. Kath Westbrook RN [facility] 2023-05-09 16:58:43 Pt called about her Iron infusion needed. GI provider requested patient's PCP follow up with this request. At initial visit, patient's GI provider did order Iron Infusion: 11/23/22: Order for MONOFERRIC infusion sent to [facility], fax # [phone]. Fax was confirmed as received. The above [...] that can help her. Kath Westbrook RN [facility] 2023-03-09 09:11:36 I called patient to relay her GI provider's msg. Patient understands and asked if I could send last order for iron infusion to show her PCP so it can be done thru their office. [facility] P FILLER Kath Westbrook RN [facility] 2023-03-09 08:51:07 Antony chase I would but I think her PCP should be able to do this and because of previous issues with the order will let them handle it. It should be possible for PCP to do it if they put in a little effort [facility] 2023-03-08 16:20:43 I called patient who stated she received a chart msg from Dr. Cordero stating her iron was low and recommended she take infusion. Patient needs another referral for the iron infusion at [facility]. Patient stated her PCP has no clue on how to order infusion. Patient states GI provider did put in the last order that was done at [facility]. 11/23/22: Order for MONOFERRIC infusion sent to [facility], fax # [phone]. Fax was confirmed as received. P FILLER Kath Westbrook RN [facility] 2023-03-08 15:42:27 Shivani Schuler is a 47 year old female Pt is calling requesting for referral to be placed to [facility] in regards to getting iron infusion done. Please call the pt to discuss. Please advise. P FILLER Daxa Scott [facility] 2023-02-15 10:30:00 Images from the original note were not included. Venipuncture collection performed by clean technique on the right anticubitus and back of left hand. Total of 2 attempts were made. Slight pressure and a bandage/dressing were applied to the site(s). The patient experienced no complications. The following specimens were processed according to instructions and sent to [facility] laboratories per lab order on 02/15/2023 : LT BLUE SST 1 RED LAV PPT DK GREEN (LiHep) DK GREEN (SodH) SUE DK BLUE (K2) DK BLUE (S) ACD Blood Culture NIPT/NTD [facility] 2023-01-12 21:52:03 Dr. Cordero, Please call patient and see how we can help. ED precautions if worsening symptoms. Dominic P FILLER IM-GASTROENTEROLOGY STAFF [facility] 2022-10-19 08:30:00 Formatting of this n ote is different from the original. Images from the original note were not included. Venipuncture collection performed by clean technique on the left anticubitus. Total of 1 attempts were made. Slight pressure and a bandage/dressing were applied to the site(s). The patient experienced no complications. The following specimens were processed according to instructions and sent to [facility] laboratories LT BLUE Lt Green SST 2 RED LAV PPT DK GREEN (L) DK GREEN (S)/// Fibrosure set BLUE,SST & LAV SUE DK BLUE (K2) DK BLUE (S) ACD RST BLOOD CULTURE NIPT or ALLOSURE VERIFYNOW URINE URINE CULTURE APTIMA URINE STOOL Monogram Z plasma preservative tube (call lab for tube)[facility] Vasoactive Intestinal Peptide (call lab for tube)[facility] Samantha Rosales [facility] 2022-10-05 10:15:00 Formatting of this n ote is different from the original. Images from the original note were not included. Venipuncture collection performed by clean technique on the left anticubitus. Total of 1 attempts were made. Slight pressure and a bandage/dressing were applied to the site(s). The patient experienced no complications. The following specimens were processed according to instructions and sent to [facility] laboratories per lab order on 10/05/2022: LT BLUE SST 1 RED LAV 2 PPT DK GREEN (LiHep) DK GREEN (SodH) SUE DK BLUE (K2) DK BLUE (S) ACD Blood Culture NIPT/NTD [facility] 2018-07-20 06:55:00 [id number] [place] [address] PATIENT NAME: SHIVANI SCHULER ADMIT DATE: 07/20/18 ACCOUNT NO: [id number] ROOM NO: AGE: 43 REPORT TYPE: CARDIAC CATHETERIZATION REPORT SEX: F ADMITTING PHYSICIAN: ATTENDING PHYSICIAN:Thea Harper MD PROCEDURE DATE: 07/20/2018 LANDSCAPE ARCHITECT AND PLANNER: Thea Harper MD TITLE OF THE PROCEDURE: [...] femoral artery area for local anesthesia. A 6-Faroese [...] modification. Dictated By: Thea Harper MD WT: CATH:ADRIANA/KIAN/IRGOBERTO Conf#: [id number]/DID#: [id number] Authenticated by Thea Harper MD On 07/20/2018 08:15:22 AM at 0815 PATIENT NAME: SHIVANI SCHULER [facility] 2018-07-20 06:06:00 [id number] [facility] n [place] [id number] PATIENT NAME: SHIVANI SCHULER ADMIT DATE: 07/20/18 ACCOUNT NO: [id number] ROOM NO: AGE: 43 REPORT TYPE: ELECTROCARDIOGRAM SEX: F ADMITTING PHYSICIAN: ATTENDING PHYSICIAN:Thea Harper MD Order: [id number] Test Reason : CAD Test Date/Time Stamp: [...] HARPER at 0921 PATIENT NAME: SHIVANI SCHULER [facility] 2018-07-19 18:55:00 [id number] [place] [id number] PATIENT NAME: SHIVANI SCHULER ADMIT DATE: 07/20/18 ACCOUNT NO: [id number] ROOM NO: AGE: 43 REPORT TYPE: HISTORY AND PHYSICAL SEX: F ADMITTING PHYSICIAN: ATTENDING PHYSICIAN:Thea Harper MD ADMISSION DATE: 07/20/2018 LANDSCAPE ARCHITECT AND PLANNER: Thea Harper MD REASON FOR ADMISSION: Chest [...] By: Thea Harper MD WT: HP:TRAVIS/KIAN/RIGOBERTO Conf#: [id number]/DID#: [id number] Authenticated by Thea Harper MD On 07/25/2018 07:20:46 AM at 0721 PATIENT [facility]: [facility]
--- NOTE | 2023-11-16 20:08 | RAD REPORT ---
EXAM: CT brain without contrast HISTORY: numbness and tingling to right side. COMPARISON: 05/22/2023 TECHNIQUE: Multiple contiguous axial images were obtained and a CT of the brain without contrast. Sag ittal and coronal reformats were performed. One or more of the following dose reduction techniques were used: Automated exposure control, adjust ment of the mA and/or kV according to patient size, and/or iterative reconstruction. FINDINGS: No evidence of hydrocephalus, intracranial hemorrhage, or extra-axial fluid collection. The brain is normal in morphology. No evidence of midline shift or areas of brain edema. The calvarium is intact. The visualized paranasal sinuses and mastoid air cells are essentially clear . IMPRESSION: No evidence of acute intracranial abnormality. The findings were communicated with Bal Dowling MD at 11/16/2023 8:01 PM by telephone.
--- NOTE | 2023-11-16 20:25 | RAD REPORT ---
EXAMINATION: CTA HEAD CLINICAL INDICATION: numbness and tingling to right side. TECHNIQUE: Axial CT images were obtained through the head after intravenous contrast utilizing angiog raphic protocol with 3D post-processing (maximum intensity projection images, volume rendered images and/or shaded surface rendered images). One or more of the following dose reduction technique s were used: Automated exposure control, adjustment of the mA and/or kV according to patient size, and/or iterative reconstruction. Unless otherwise specified, incidental findings do not require dedic ated imaging follow-up. COMPARISON: No prior exam. FINDINGS: ICA: The petrous, cavernous, and supraclinoid segments of the bilateral internal carotid arteries are normal. The ophthalmic artery origins are visualized and normal. The posterior communicating arteries are patent. GIBSON: Anterior cerebral arteries are normal bilaterally. The anterior communicating artery is patent. MCA: Middle cerebral arteries are normal bilaterally. WEB MARKETING COORDINATOR: Posterior cerebral arteries are normal bilaterally. Vertebrobasilar: The vertebral arteries are patent. The basilar artery is normal in appearance. 3D images confirm these findings. IMPRESSION: No significant flow abnormality is identified.
--- NOTE | 2023-11-16 20:28 | RAD REPORT ---
EXAMINATION: CTA NECK CLINICAL INDICATION: numbness and tingling to right side. TECHNIQUE: Axial CT images were obtained from the aortic arch to the skull base after intravenous con trast utilizing angiographic protocol with 3D post-processing (maximum intensity projection images, volume rendered images and/or shaded surface rendered images). One or more of the following dose redu ction techniques were used: Automated exposure control, adjustment of the mA and/or kV according to patient size, and/or iterative reconstruction. Unless otherwise specified, incidental findings do not require dedicated imaging follow-up. COMPARISON: No prior exam. FINDINGS: AORTA: The imaged aortic arch is normal. CCA: The common carotid arteries are patent and normal in caliber. ICA/ECA: Bilateral internal and external carotid arteries are patent. There is no significant interna l carotid artery stenosis. VERTEBRAL: The cervical vertebral arteries are patent. The vertebral arteries are codominant. SOFT TISSUE: No significant neck soft tissue abnormalities. The visualized lung apices are clear. 3D images confirm these findings. IMPRESSION: No significant flow abnormality of the neck vessels is identified. NASCET criteria used. Mild 0-49% stenosis Moderate 50-69% stenosis Severe 70-99% stenosis
[2023-11-16 20:37] LABS: Absolute Basophils 0.1 K/uL (0-0.5); Absolute Eosinophils 0.3 K/uL (0-0.5); Absolute Lymphocytes (CBC) 1.7 K/uL (0.7-4.9); Absolute Monocytes 0.4 K/uL (0.1-1.3); Basophils % 0.7 % (0-1.3); Eosinophils % 3.3 % (0-4.4); Hematocrit 29.8 % (36.0-45.0); Hemoglobin 9.6 g/dL (12.0-15.0); Lymphocytes % 19.5 % (15.3-44.8); MCH 22.2 pg (27.0-35.0); MCHC 32.2 g/dL (32.0-36.0); MPV 8.7 fL (7.6-11.3); Monocytes % 5.1 % (3.3-12.3); Neutrophils % 71.4 % (41.7-73.7); Platelets 310 thou/uL (152-406); RBC Red Blood Cell Count 4.31 M/uL (3.86-4.86); Red Cell Distribution Width 17.7 % (12.1-15.2)
[2023-11-16 20:43] LABS: PT Prothrombin Time 10.8 SECONDS (9.4-12.5); Protime INR 0.96
[2023-11-16] MEDS ORDERED: ONDANSETRON 4 MG/2 ML VIAL ONE (20:45)
[2023-11-16] MEDS ORDERED: NA CHLORIDE 0.9% 1,000 ML ONE (20:46)
[2023-11-16] MEDS ORDERED: DIAZEPAM 5 MG TABLET ONE (20:46)
[2023-11-16] MEDS ORDERED: MORPHINE 4 MG/ML SYR ONE (20:46)
[2023-11-16 20:57] LABS: ALT/SGPT 30 U/L (13-56); AST/SGOT 18 U/L (15-37); Albumin 3.7 g/dL (3.4-5.0); Albumin/Globulin Ratio 1.1 (1.1-1.8); Alkaline Phosphatase 145 U/L (45-117); Anion Gap 8.6 mEq/L (5.0-15.0); BUN Blood Urea Nitrogen 10 mg/dL (7-18); Bicarbonate 26 mEq/L (21-32); Bilirubin Total 0.3 mg/dL (0.2-1.0); Globulin 3.3 g/dL (2.3-3.5); Glomerular Filtration Rate 92 ml/min (=/>90); Glucose Level 105 mg/dL (74-106); Magnesium 2.1 mg/dL (1.6-2.4); NT PRO-BNP 22 pg/mL (<125); Potassium 3.6 mEq/L (3.5-5.1); Sodium Level 138 mEq/L (136-145); Troponin High Sensitivity 3.2 pg/mL (<58.9)
[2023-11-16 20:59] LABS: Bilirubin Direct < 0.2 mg/dL (0-0.2); Bilirubin Indirect, Calculated 0.1 mg/dL (0.2-0.8); Blood Morphology Comment NOTED (NOT SEEN); Microcytosis 1+; Platelet Estimate ADEQ; White Blood Cell Scan OK (OK)
--- NOTE | 2023-11-16 21:07 | RAD REPORT ---
EXAMINATION: ONE VIEW CHEST XR CLINICAL INDICATION: CHEST PAIN TECHNIQUE: Frontal chest projection is submitted. Examination is limited by patient positioning and t echnique. COMPARISON: 04/16/2023 FINDINGS: The lungs are well inflated and clear. The heart is normal in size. No displaced fractures identified . IMPRESSION: No acute intrathoracic abnormalities.
--- NOTE | 2023-11-16 23:33 | ER ---
Nurse's Notes [facility] Name: Shivani Lagunas Age: 48 yrs Sex: Female : 1975 Arrival Date: 11/16/2023 Time: 19:34 Bed 3 Private MD: Diagnosis: Acute anxiety attack, noncardiac chest pain, neck pain acute Presentation: 11/15 19:54 Chief complaint: Patient states: CHEST PAIN AND NUMBNESS AND TINGLING TO RIGHT SIDE OF cm10 BODY ONSET AT APPROXIMATELY 1900. Coronavirus screen: Client denies travel out of the [place] in the last 14 days. Ebola Screen: Patient denies travel to an Ebola-affected area in the 21 days before illness onset. No symptoms or risks identified at this time. Initial Sepsis Screen: Does the patient meet any 2 criteria? No. Patient's initial sepsis screen is negative. Does the patient have a suspected source of infection? No. Patient's initial sepsis screen is negative. Risk Assessment: Do you want to hurt yourself or someone else? Patient reports no desire to harm self or others. Onset of symptoms was November 16, 2023. 19:54 Method Of Arrival: Ambulatory cm10 19:54 Acuity: ALICIA 2 cm10 ORIENTATION & MOBILITY SPECIALIST: 23:49 unknown al5 Historical: - Allergies: 19:55 Sulfa (Sulfonamide Antibiotics); cm10 - PMHx: 19:55 Bipolar disorder; Congestive heart failure; Hypertensive disorder; Schizophrenia; cm10 - PSHx: 19:55 Appendectomy; section; Cholecystectomy; cm10 - Immunization history:: Adult Immunizations up to date. - Infectious Disease History:: Denies. - Social history:: Smoking status: Patient denies any tobacco usage or history of. - Family history:: not pertinent. Screenin:34 [facility] ED Fall Risk Assessment (Adult) History of falling in the last 3 months, al5 including since admission No falls in past 3 months (0 pts) Confusion or Disorientation No (0 pts) Intoxicated or Sedated No (0 pts) Impaired Gait Yes (1 pt) Mobility Assist Device Used No (0 pt) Altered Elimination No (0 pt) Score/Fall Risk Level 0 - 2 = Low Risk Oriented to surroundings, Maintained a safe environment, Hourly rounding (assess needs \T\ fall precautionary measures) done. Abuse screen: Denies threats or abuse. Denies injuries from another. Nutritional screening: No deficits noted. Tuberculosis screening: No symptoms or risk factors identified. Assessment: 19:51 General: CODE STROKE CALLED AT THIS TIME.. cm10 19:51 Reassessment: PATIENT GOING TO CT WITH THIS NURSE. ha1 20:15 Reassessment: BACK FROM CT. ha1 20:30 General: Appears in no apparent distress. uncomfortable, Behavior is calm, cooperative. al5 Pain: Complains of pain in chest and right foot and right leg and right hand and right arm and head. Neuro: Level of Consciousness is awake, alert, obeys commands, Oriented to person, place, time, situation, Inside Barrel Polisher are equal bilaterally Moves all extremities. Full function Gait is unsteady, Speech is normal, Facial symmetry appears normal, Pupils are PERRLA, Pupil Size: 3 mm Intact. Cardiovascular: Reports chest pain, Capillary refill < 3 seconds Patient's skin is warm and dry. Respiratory: Airway is patent Respiratory effort is even, unlabored, Respiratory pattern is regular, symmetrical. GI: Abdomen is flat, non-distended, Reports nausea. : No signs and/or symptoms were reported regarding the genitourinary system. EENT: No signs and/or symptoms were reported regarding the EENT system. Derm: Skin is intact, Skin is pink, warm \T\ dry. normal. Musculoskeletal: No signs and/or symptoms reported regarding the musculoskeletal system. 22:26 Reassessment: Patient appears in no apparent distress at this time. Patient and/or al5 family updated on plan of care and expected duration. Pain level reassessed. Patient is alert, oriented x 3, equal unlabored respirations, skin warm/dry/pink. Patient denies pain at this time. Patient states feeling better. 23:47 Reassessment: Patient appears in no apparent distress at this time. No changes from al5 previously documented assessment. Patient and/or family updated on plan of care and expected duration. Pain level reassessed. Patient is alert, oriented x 3, equal unlabored respirations, skin warm/dry/pink. Vital Signs: 20:35 BP 149 / 80; Pulse 73; Resp 18; Temp 97.9; Pulse Ox 100% ; Weight 99.79 kg; Height 5 al5 ft. 6 in. ; 20:45 BP 132 / 72; Pulse 72; Resp 19; Pulse Ox 100% on R/A; al5 21:00 BP 135 / 82; Pulse 75; Resp 20; Pulse Ox 100% on R/A; al5 21:15 BP 141 / 76; Pulse 70; Resp 20; Pulse Ox 99% on R/A; al5 21:30 BP 136 / 77; Pulse 72; Resp 15; Pulse Ox 99% on R/A; al5 21:45 BP 142 / 75; Pulse 72; Resp 14; Pulse Ox 100% on R/A; al5 22:00 BP 137 / 77; Pulse 69; Resp 14; Pulse Ox 100% on R/A; al5 22:15 BP 133 / 71; Pulse 66; Resp 15; Pulse Ox 99% on R/A; al5 22:30 BP 134 / 85; Pulse 74; Resp 14; Pulse Ox 100% on R/A; al5 22:45 BP 140 / 72; Pulse 66; Resp 18; Pulse Ox 100% on R/A; al5 23:00 BP 127 / 76; Pulse 67; Resp 18; Pulse Ox 100% on R/A; al5 23:15 BP 129 / 79; Pulse 65; Resp 17; Pulse Ox 100% on R/A; al5 23:30 BP 126 / 92; Pulse 70; Resp 16; Pulse Ox 99% on R/A; al5 20:35 Body Mass Index 35.51 (99.79 kg, 167.64 cm) al5 [place] Coma Score: 21:08 Eye Response: spontaneous(4). Motor Response: obeys commands(6). Verbal Response: sp4 oriented(5). Total: 15. NIH Stroke Scale Scores: 21:08 NIHSS Score: 0 sp4 ED Course: 19:37 Patient arrived in ED. jj6 19:55 Triage completed. cm10 19:55 Arm band placed on Patient placed in an exam room, on a stretcher. EKG completed in cm10 triage. Results shown to MD. 20:02 Silver Johnson MD is Attending Physician. sp4 20:04 Ct Stroke Brain Wo Cont In Process Unspecified. EDMS 20:20 Head angio In Process Unspecified. EDMS 20:20 Neck Angio In Process Unspecified. EDMS 20:30 Emma Baker, AMANDA is Primary Nurse. al5 20:34 Patient has correct armband on for positive identification. Call light in reach. Side al5 rails up X2. Provided Education on: plan of care. 20:35 No provider procedures requiring assistance completed. Inserted saline lock: 22 gauge al5 in right antecubital area, using aseptic technique. ,using aseptic technique. done by amanda miller Blood collected. Flushed with 10 mL NS. 20:41 Basic Metabolic Panel Sent. al5 20:41 CBC with Diff Sent. al5 20:41 LFT's Sent. al5 20:41 Magnesium Sent. al5 20:41 NT PRO-BNP Sent. al5 20:41 PT-INR Sent. al5 20:41 Troponin HS Sent. al5 21:05 XRAY Chest (1 view) In Process Unspecified. EDMS 23:49 IV discontinued, intact, bleeding controlled, No redness/swelling at site. Pressure al5 dressing applied. Administered Medications: 20:56 Drug: Diazepam PO 5 mg PO once Route: PO; al5 23:34 Follow up: Response: No adverse reaction; Anxiety decreased al5 20:56 Drug: morphine IVP or IV 4 mg IVP once over 4 mins Route: IVP; Infused Over: 4 mins; al5 Site: right antecubital; 23:34 Follow up: Response: No adverse reaction; Pain is decreased al5 20:56 Drug: Ketorolac IVP 30 mg IVP once Route: IVP; Site: right antecubital; al5 23:34 Follow up: Response: No adverse reaction; Pain is decreased al5 20:56 Drug: Ondansetron IVP 8 mg IVP once; over 2 minutes Route: IVP; Site: right antecubital;al5 23:34 Follow up: Response: No adverse reaction; Nausea is decreased al5 20:56 Drug: NS 0.9% IV 1000 ml IV at 1 bolus Per protocol; 1000 mL bolus Route: IV; Rate: 1 al5 bolus; Site: right antecubital; 23:35 Follow up: Response: No adverse reaction; IV Status: Completed infusion; IV Intake: al5 1000ml 23:47 Drug: Methocarbamol PO 750 mg PO once Route: PO; al5 23:47 Follow up: Response: No adverse reaction; Medication administered at discharge. al5 Medication: 20:34 VIS not applicable for this client. al5 Intake: 23:35 IV: 1000ml; Total: 1000ml. al5 Outcome: 23:33 Discharge ordered by . sp4 23:49 Discharged to home ambulatory, with family, al5 23:49 Condition: good 23:49 Discharge instructions given to patient, Instructed on discharge instructions, follow up and referral plans. medication usage, Demonstrated understanding of instructions, follow-up care, medications, Prescriptions given X 1, 23:49 Patient left the ED. al5 NIH Stroke Scale - NIH Stroke Score Date: 11/16/2023 Time: 21:08 Total Score = 0 10. Dysarthria (speech clarity - read or repeat words) - 0(Normal) 11. Extinction and Inattention (visual/tactile/auditory/spatial/personal) - 0(No abnormality) 1a. Level of Consciousness (LOC) - 0(Alert) 1b. Level of Consciousness (LOC) (Month \T\ Age) - 0(Both) 1c. LOC Commands (Open \T\ Closes Eyes/Explosive Technician) - 0(Both) 2. Best Gaze (Lateral Gaze Paresis) - 0(Normal) 3. Visual Field Loss - 0(No visual loss) 4. Facial Palsy - 0(Normal) 5a. Left Arm: Motor (10-second hold) - 0(No drift) 5b. Right Arm: Motor (10-second hold) - 0(No drift) 6a. Left Leg: Motor (5-second hold - always test supine) - 0(No drift) 6b. Right Leg: Motor (5-second hold - always test supine) - 0(No drift) 7. Limb Ataxia (finger/nose \T\ heel/mejia - test with eyes open) - 0(Absent) 8. Sensory Loss (pinprick arms/legs/face) - 0(Normal) 9. Best Language: Aphasia (description/naming/reading) - 0(No aphasia) Initials: sp4 Signatures: Dispatcher [employer] EDMS Kiana Edge jj6 Nicolasa Franks RN RN ha1 Silver Johnson MD MD sp4 Mireya Godoy RN RN cm10 Emma Baker RN RN al5 Corrections: (The following items were deleted from the chart) 20:34 20:30 Pain: Complains of pain in head, right arm, right hand, right leg and al5 right foot al5 20:34 20:30 Cardiovascular: Capillary refill < 3 seconds Patient's skin is warm and al5 dry. al5 20:34 20:30 GI: No signs and/or symptoms were reported involving the gastrointestinal al5 system. Abdomen is flat, non-distended, al5 23:49 22:30 BP 126 / 92; Pulse 70bpm; Resp 16bpm; Pulse Ox 99% RA; al5 al5
--- NOTE | 2023-11-16 23:33 | EDPHYS ---
Physician Documentation [facility] Name: Shivani Lagunas Age: 48 yrs Sex: Female : 1975 Arrival Date: 11/16/2023 Time: 19:34 Bed 3 Private MD: ED Physician Silver Johnson HPI: 11/15 20:02 This 48 yrs old Female presents to ER via Ambulatory with complaints of sp4 Nausea, Chest Pain, Shortness Of Breath, RT SIDED PAIN/NUMBNESS. 20:04 PMH - control method, Not Historical: Allergies: Sulfa (Sulfonamide sp4 Antibiotics); PMHx: Bipolar disorder; Congestive heart failure; Hypertensive disorder; Schizophrenia PSHx: section; Cholecystectomy; Appendectomy;. 11/16 03:29 Patient is 48-year-old female with history of bipolar disorder hypertension, and sp4 schizophrenia. Patient presents with acute onset left-sided chest pain left arm and leg complaint of numbness tingling, also feeling of anxiety. Additional complaint include shortness of breath and nausea.. Initial arrival code stroke was called. After thorough examination NIHSS score is 0. Code stroke was canceled. SURGICAL TECHNICIAN: 11/15 23:49 unknown al5 Historical: - Allergies: 19:55 Sulfa (Sulfonamide Antibiotics); cm10 - PMHx: 19:55 Bipolar disorder; Congestive heart failure; Hypertensive disorder; Schizophrenia; cm10 - PSHx: 19:55 Appendectomy; section; Cholecystectomy; cm10 - Immunization history:: Adult Immunizations up to date. - Infectious Disease History:: Denies. - Social history:: Smoking status: Patient denies any tobacco usage or history of. - Family history:: not pertinent. ROS: 11/16 03:29 Constitutional: PositiveNegative for fever, chills, and weight loss, positive chest sp4 pain, positive numbness, positive heaviness, positive nausea, chest pain All other systems are negative, Exam: 11/15 21:08 Constitutional: This is a well developed, well nourished patient who is awake, alert, sp4 and in no acute distress. Head/Face: Normocephalic, atraumatic. Eyes: Pupils equal round and reactive to light, extra-ocular motions intact. Lids and lashes normal. Conjunctiva and sclera are not injected. Cornea within normal limits. Periorbital areas with no swelling, redness, or edema. ENT: Nares patent. No nasal discharge, no septal abnormalities noted. Tympanic membranes are normal and external auditory canals are clear. Oropharynx with no redness, swelling, or masses, exudates, or evidence of obstruction, uvula midline. Mucous membranes moist. Neck: Trachea midline, no thyromegaly or masses palpated, and no cervical lymphadenopathy. Supple, full range of motion without nuchal rigidity, or vertebral point tenderness. Chest/axilla: Normal chest wall appearance and motion. Nontender with no deformity. No lesions are appreciated. Cardiovascular: Regular rate and rhythm with a normal S1 and S2. No gallops, murmurs, or rubs. Normal PMI, no JVD. No pulse deficits. Respiratory: Lungs have equal breath sounds bilaterally, clear to auscultation and percussion. No rales, rhonchi or wheezes noted. No increased work of breathing, no retractions or nasal flaring. Abdomen/GI: Soft, with normal bowel sounds. No distension or tympany. No guarding or rebound. No evidence of tenderness throughout. Back: No spinal tenderness. No costovertebral tenderness. Skin: Warm, dry with normal turgor. Normal color with no rashes, no lesions, and no evidence of cellulitis. MS/ Extremity: Pulses equal, no cyanosis. Neurovascular intact. Full, normal range of motion. Neuro: Awake and alert, GCS 15, oriented to person, place, time, and situation. Cranial nerves II-XII grossly intact. Motor strength 5/5 in all extremities. Sensory grossly intact. Psych: Awake, alert, with orientation to person, place and time. Behavior, mood, and affect are within normal limits 11/16 03:29 ECG was reviewed by the Attending Physician. EKG at 2034 normal sinus rhythm, sp4 Vital Signs: 11/15 20:35 BP 149 / 80; Pulse 73; Resp 18; Temp 97.9; Pulse Ox 100% ; Weight 99.79 kg; Height 5 al5 ft. 6 in. ; 20:45 BP 132 / 72; Pulse 72; Resp 19; Pulse Ox 100% on R/A; al5 21:00 BP 135 / 82; Pulse 75; Resp 20; Pulse Ox 100% on R/A; al5 21:15 BP 141 / 76; Pulse 70; Resp 20; Pulse Ox 99% on R/A; al5 21:30 BP 136 / 77; Pulse 72; Resp 15; Pulse Ox 99% on R/A; al5 21:45 BP 142 / 75; Pulse 72; Resp 14; Pulse Ox 100% on R/A; al5 22:00 BP 137 / 77; Pulse 69; Resp 14; Pulse Ox 100% on R/A; al5 22:15 BP 133 / 71; Pulse 66; Resp 15; Pulse Ox 99% on R/A; al5 22:30 BP 134 / 85; Pulse 74; Resp 14; Pulse Ox 100% on R/A; al5 22:45 BP 140 / 72; Pulse 66; Resp 18; Pulse Ox 100% on R/A; al5 23:00 BP 127 / 76; Pulse 67; Resp 18; Pulse Ox 100% on R/A; al5 23:15 BP 129 / 79; Pulse 65; Resp 17; Pulse Ox 100% on R/A; al5 23:30 BP 126 / 92; Pulse 70; Resp 16; Pulse Ox 99% on R/A; al5 20:35 Body Mass Index 35.51 (99.79 kg, 167.64 cm) al5 NIH Stroke Scale Scores: 21:08 NIHSS Score: 0 sp4 [place] Score: 21:08 Eye Response: spontaneous(4). Motor Response: obeys commands(6). Verbal Response: sp4 oriented(5). Total: 15. MDM: 22:34 ED course: EXAMINATION: ONE VIEW CHEST XR CLINICAL INDICATION: CHEST PAIN TECHNIQUE: sp4 Frontal chest projection is submitted. Examination is limited by patient positioning and technique. COMPARISON: 04/16/2023 FINDINGS: The lungs are well inflated and clear. The heart is normal in size. No displaced fractures identified. IMPRESSION: No acute intrathoracic abnormalities. . ED course: EXAMINATION: CTA HEAD CLINICAL INDICATION: numbness and tingling to right side. TECHNIQUE: Axial CT images were obtained through the head after intravenous contrast utilizing angiographic protocol with 3D post-processing (maximum intensity projection images, volume rendered images and/or shaded surface rendered images). One or more of the following dose reduction techniques were used: Automated exposure control, adjustment of the mA and/or kV according to patient size, and/or iterative reconstruction. Unless otherwise specified, incidental findings do not require dedicated imaging follow-up. COMPARISON: No prior exam. FINDINGS: ICA: The petrous, cavernous, and supraclinoid segments of the bilateral internal carotid arteries are normal. The ophthalmic artery origins are visualized and normal. The posterior communicating arteries are patent. GIBSON: Anterior cerebral arteries are normal bilaterally. The anterior communicating artery is patent. MCA: Middle cerebral arteries are normal bilaterally. TEST DESKMAN: Posterior cerebral arteries are normal bilaterally. Vertebrobasilar: The vertebral arteries are patent. The basilar artery is normal in appearance. 3D images confirm these findings. IMPRESSION: No significant flow abnormality is identified. . ED course: EXAMINATION: CTA NECK CLINICAL INDICATION: numbness and tingling to right side. TECHNIQUE: Axial CT images were obtained from the aortic arch to the skull base after intravenous contrast utilizing angiographic protocol with 3D post-processing (maximum intensity projection images, volume rendered images and/or shaded surface rendered images). One or more of the following dose reduction techniques were used: Automated exposure control, adjustment of the mA and/or kV according to patient size, and/or iterative reconstruction. Unless otherwise specified, incidental findings do not require dedicated imaging follow-up. COMPARISON: No prior exam. FINDINGS: AORTA: The imaged aortic arch is normal. CCA: The common carotid arteries are patent and normal in caliber. ICA/ECA: Bilateral internal and external carotid arteries are patent. There is no significant internal carotid artery stenosis. VERTEBRAL: The cervical vertebral arteries are patent. The vertebral arteries are codominant. SOFT TISSUE: No significant neck soft tissue abnormalities. The visualized lung apices are clear. 3D images confirm these findings. IMPRESSION: No significant flow abnormality of the neck vessels is identified. . ED course: EXAM: CT brain without contrast HISTORY: numbness and tingling to right side. COMPARISON: 05/22/2023 TECHNIQUE: Multiple contiguous axial images were obtained and a CT of the brain without contrast. Sagittal and coronal reformats were performed. One or more of the following dose reduction techniques were used: Automated exposure control, adjustment of the mA and/or kV according to patient size, and/or iterative reconstruction. FINDINGS: No evidence of hydrocephalus, intracranial hemorrhage, or extra-axial fluid collection. The brain is normal in morphology. No evidence of midline shift or areas of brain edema. The calvarium is intact. The visualized paranasal sinuses and mastoid air cells are essentially clear. IMPRESSION: No evidence of acute intracranial abnormality. The findings were communicated with Bal Dowling MD at 11/16/2023 8:01 PM by telephone. 23:30 Patient medically screened. 4 11/16 03:31 Differential diagnosis: Nonspecific abd pain, gastritis, viral gastroenteritis, sp4 gastroenteritis. Data reviewed: vital signs, nurses notes, old medical records, lab test result(s), EKG, radiologic studies, CT scan, plain films. 03:32 Consideration of Admission/Observation Escalation of care including sp4 admission/observation considered. ED course: Significantly improved after p.o. Valium. Stable for discharge home for management of anxiety. Has no sign of CVA. 11/15 20:04 Order name: Basic Metabolic Panel; Complete Time: 22:28 sp4 11/15 20:04 Order name: CBC with Diff; Complete Time: 22:28 4 11/15 20:04 Order name: LFT's; Complete Time: 22:28 [facility] 11/15 20:04 Order name: Magnesium; Complete Time: 22:28 4 11/15 20:04 Order name: NT PRO-BNP; Complete Time: 22:28 sp4 11/15 20:04 Order name: PT-INR; Complete Time: 22:28 sp4 11/15 20:04 Order name: Troponin HS; Complete Time: 22:28 sp4 11/15 20:40 Order name: Glucose, Ancillary Testing; Complete Time: 22:28 EDIL 11/15 21:00 Order name: CBC Smear Scan; Complete Time: 22:28 EDIL 11/15 20:03 Order name: Head angio; Complete Time: 22:28 EDIL 11/15 20:03 Order name: Neck Angio; Complete Time: 22:28 EDIL 11/15 20:04 Order name: Ct Stroke Brain Wo Cont; Complete Time: 22:28 EDIL 11/15 20:04 Order name: XRAY Chest (1 view); Complete Time: 22:28 4 11/15 20:03 Order name: EKG - Nurse/Tech; Complete Time: 20:41 sp4 11/15 20:03 Order name: EKG - Nurse/Tech; Complete Time: 20:41 sp4 11/15 20:04 Order name: Cardiac monitoring; Complete Time: 20:41 sp4 11/15 20:04 Order name: EKG - Nurse/Tech; Complete Time: 20:41 sp4 11/15 20:04 Order name: IV Saline Lock; Complete Time: 20:41 sp4 11/15 20:04 Order name: Labs collected and sent; Complete Time: 20:41 sp4 11/15 20:04 Order name: O2 Per Protocol; Complete Time: 20:41 sp4 11/15 20:04 Order name: O2 Sat Monitoring; Complete Time: 20:41 sp4 EC/04 20:35 Rate is 73 beats/min. Rhythm is regular, Normal Sinus Rhythm. QRS [place] is Normal. [place] sp4 interval is normal. QRS interval is normal. QT interval is normal. No Q waves. T waves are Normal. No ST changes noted. Clinical impression: No evidence of ischemia. Interpreted by me. Reviewed by me. Administered Medications: 20:56 Drug: Diazepam PO 5 mg PO once Route: PO; al5 23:34 Follow up: Response: No adverse reaction; Anxiety decreased al5 20:56 Drug: morphine IVP or IV 4 mg IVP once over 4 mins Route: IVP; Infused Over: 4 mins; al5 Site: right antecubital; 23:34 Follow up: Response: No adverse reaction; Pain is decreased al5 20:56 Drug: Ketorolac IVP 30 mg IVP once Route: IVP; Site: right antecubital; al5 23:34 Follow up: Response: No adverse reaction; Pain is decreased al5 20:56 Drug: Ondansetron IVP 8 mg IVP once; over 2 minutes Route: IVP; Site: right antecubital;al5 23:34 Follow up: Response: No adverse reaction; Nausea is decreased al5 20:56 Drug: NS 0.9% IV 1000 ml IV at 1 bolus Per protocol; 1000 mL bolus Route: IV; Rate: 1 al5 bolus; Site: right antecubital; 23:35 Follow up: Response: No adverse reaction; IV Status: Completed infusion; IV Intake: al5 1000ml 23:47 Drug: Methocarbamol PO 750 mg PO once Route: PO; al5 23:47 Follow up: Response: No adverse reaction; Medication administered at discharge. al5 Disposition Summary: 11/16/23 23:33 Discharge Ordered Notes: Location: Home sp4 Problem: new sp4 Symptoms: have improved sp4 Condition: Stable sp4 Diagnosis - Acute anxiety attack, noncardiac chest pain, neck pain acute sp4 Followup: sp4 - With: Private Physician - When: 7 - 10 days - Reason: Recheck today's complaints Discharge Instructions: - Discharge Summary Sheet sp4 - Managing Anxiety, Adult sp4 Forms: - Patient Portal Instructions sp4 Prescriptions: - Diazepam 5 mg Oral tablet - take 1 tablet ORAL route once daily As needed PRN anxiety; 20 tablet; Refills: sp4 0, Product Selection Permitted NIH Stroke Scale - NIH Stroke Score Date: 11/16/2023 Time: 21:08 Total Score = 0 10. Dysarthria (speech clarity - read or repeat words) - 0(Normal) 11. Extinction and Inattention (visual/tactile/auditory/spatial/personal) - 0(No abnormality) 1a. Level of Consciousness (LOC) - 0(Alert) 1b. Level of Consciousness (LOC) (Month \T\ Age) - 0(Both) 1c. LOC Commands (Open \T\ Closes Eyes/Sample Checker) - 0(Both) 2. Best Gaze (Lateral Gaze Paresis) - 0(Normal) 3. Visual Field Loss - 0(No visual loss) 4. Facial Palsy - 0(Normal) 5a. Left Arm: Motor (10-second hold) - 0(No drift) 5b. Right Arm: Motor (10-second hold) - 0(No drift) 6a. Left Leg: Motor (5-second hold - always test supine) - 0(No drift) 6b. Right Leg: Motor (5-second hold - always test supine) - 0(No drift) 7. Limb Ataxia (finger/nose \T\ heel/mejia - test with eyes open) - 0(Absent) 8. Sensory Loss (pinprick arms/legs/face) - 0(Normal) 9. Best Language: Aphasia (description/naming/reading) - 0(No aphasia) Initials: sp4 Signatures: Dispatcher [employer] Silver Jeronimo MD MD sp4 Mireya Godoy RN RN cm10 Emma Baker RN RN al5
[2023-11-16] MEDS ORDERED: methocarbamoL 750 MG TAB ONE (23:40)
[2023-11-17 00:27] VITALS: TEMP 97.9
[2023-11-17 00:47] VITALS: BP 126/92; O2SAT 99
--- NOTE | 2023-11-19 11:59 | EKG ---
Test Date: 2023-11-16 Test Time: 19:47:49 Comprehensive Ophthalmologist: CASSIA MEASUREMENT RESULTS: Intervals: Rate: 80 WV: 148 QRSD: 92 QT: 396 QTc: 456 [place]: P: 55 WV: 148 QRS: 20 T: 41 INTERPRETIVE STATEMENTS: Normal sinus rhythm Normal ECG Compared to ECG 05/22/2023 17:13:29 No significant changes Electronically Signed On 11-19-23 11:54:00 CDT by Ruperto Boone
== END 2023-11-16 23:49 | disposition home or self-care (01) ==
LOC: ER 19:34
DX: F41.0 Panic disorder [episodic paroxysmal anxiety] (principal); M54.2 Cervicalgia; I10 Essential (primary) hypertension
CPT/HCPCS: 96361; 93005; 85025; 80048; 36415; 83735; 85610; 82947; 80076; 84484; 83880; 70496; 70498; 70450; 71045; 96375; 96374; 99284; Q9967; J2405; J7030

== ENCOUNTER 2023-12-09 17:41 | Emergency (ER) | payer OTHER ==
--- OUTSIDE RECORDS SUMMARY | 2023-12-09 17:55 | XMS REPORT | Continuity of Care Document ---
Author Name Unknown Address [address] [address] [place] [address] [facility] thconnect Address [address] [place] [address] Care Team Providers Care Stockholder Name Role Phone Jae Benjamin Primary Care Physician [phone] Jae Holloway Attending Clinician Unavailable Doctor Unassigned, Hayes Attending Clinician U Tavon Ruth MD Attending Clinician [phone] ALESHA CROWE Attending Clinician Unavailable Elidia Cordero MD Attending Clinician [phone] Dominic Keita MD Attending Clinician [phone] Jose Westbrook MD Attending Clinician [phone] JOSE WESTBROOK Attending Clinician Unavailable FARZANA SAUCEDA Attending Clinician Unavailable MARYSOL PABON Attending Clinician Unavailable MARYSOL PABON Attending Clinician Unavailable Marysol Pabon DO Attending Clinician [phone] Rhiannon Vizcarra MD Attending Clinician + [phone] Dominic Keita MD Attending Clinician [phone] DAVIDSON SUTHERLAND Attending Clinician Unavailable Consuelo BAUER, Elidia Gamble Attending Clinician [phone] EMILIA SNOWDEN Attending Clinician Annia vailable Doctor Unassigned, Hayes Attending Clinician U SARA Day Attending Clinician UnavailSARA Dorado Attending Clinician UnavailJewel Forbes MD Attending Clinician [facility] Attending Clinician Unavailable JEWEL CUNHA Attending Clinician Unavaila JENNY Norton Attending Clinician Unavailable JENNY ARRIAGA Attending Clinician Unavailable Dexter Dias MD Attending Clinician [phone] Davidson Sutherland MD Attending Clinician [phone] Pcp-Lab Attending Clinician Unavailable DEXTER DIAS Attending Clinician Unavailable GC_GCBZW_Kadiyala_S Attending Clinician Unavaila ONEIDA Del Rosario Attending Clinician Unavailable DOMINIC KEITA Attending Clinician UnavailHunter Sahni MD Attending Clinician [phone] Ting Grissom MD Attending Clinician [phone] RADIOLOGY Attending Clinician Unavailable DORA NEWMAN Attending Clinician Unavailable Dora Newman NP Attending Clinician + [phone] Salvatore Vences MD Attending Clinician [phone] Pob, Adc Lab Main Attending Clinician UnavailSALVATORE Grady Attending Clinician Unavailchris e Pathology Attending Clinician Unavailable IGOR SAAVEDRA Attending Clinician Unavaila HILARY Ramires Attending Clinician UnavailHILARY Conrad Attending Clinician UnavailIgor pfeiffer Rai, MD Attending Clinician UnaGIGI Dela Cruz Attending Clinician Unavailable Gigi Monroy DO Attending Clinician [phone] Zane Martinez MD Attending Clinician Marycruz VAZQUEZ, Deonte Attending Clinician Unavailable UNKNOWN, ATTENDING Attending Clinician Unavailab SALLY Cash Attending Clinician Unavail able SALLY MITCHELL Attending Clinician Unavail able Salbador Lockwood MD Attending Clinician [phone] SALBADOR LOCKWOOD Attending Clinician Unavailable HALIMA CONNOR Attending Clinician Unavailab Halima Choi DO Attending Clinician [phone] ROBERT NOWAK Attending Clinician Unavail able Patti Hutton Attending Clinician [phone] CRISTO MARTINEZ Attending Clinician Unavail able JEWEL MORAES Attending Clinician Unava SALVATORE Ahuja Attending Clinician Unav ANGELA Richardson Attending Clinician Unavailab RHIANNON Durant Admitting Clinician Unavailable GC_GCBZW_Kadiyala_S Admitting Clinician UnavailDOMINIC Peres Admitting Clinician Unavailchris Keita MD, Dominic Admitting Clinician [phone] Payers Payer Name Policy Type Policy Number Effective Date Expirati on Date Source [employer] [id number] 2022 00:00:00 MEDICAID SSI PENDING PENDING 2021 00:00:00 Problems Condition Name Condition Details Condition Category Status Onset Date Resolution Date Last Treatment Date Treating Clinician Comments Source Iron deficiency anemia due to chronic blood loss Iron deficiency anemia due to chronic blood loss Disease Active 10-19 00:00: 00 [facility] Gastroesop hageal reflux disease, unspecifie d whether esophagiti s present Gastroesop hageal reflux disease, unspecifie d whether esophagiti s present Disease Active 10-19 00:00: 00 [facility] Arrhythmia Arrhythmia Disease Active 10-18 00:00: 00 [facility] Anemia Anemia Disease Active 02-17 00:00: 00 [facility] Bipolar 1 disorder, depressed Bipolar 1 disorder, depressed Disease Active 2019-02 00:00: 00 [facility] Gout Gout Disease Active 08-17 00:00: 00 [facility] Severe headache Severe headache Disease Active 1998-02 00:00: 00 [facility] Insomnia disorder Insomnia disorder Disease Active 1989-02 0- 00:00: 00 [facility] Anxiety Anxiety Disease Active 10-18 00:00: 00 [facility] No known active problems No known active problems Disease [facility] Allergies, Adverse Reactions, Alerts Allergy Name Allergy Type Status Severity Reaction(s) Onset Date Inactive Date Treating Clinician Comments Source Sulfa Drugs (Not Checked) Propensi ty to adverse reaction to drug Active 2023-02 0 00:00: 00 [facility] Sulfa Antibiot ics - CLASS Propensi ty to adverse reaction to drug Active 5- 00:00: 00 [facility] Cali Sulfa (Sulfona mide Antibiot ics) Propensi ty to adverse reaction s Active Hives 06-05 00:00: 00 [facility] SULFA (SULFONA MIDE ANTIBIOT ICS) Drug Class Active Hives 424 00:00: 00 [facility] Social History Social Habit Start Date Stop Date Quantity Comments Source Gender identity [facility] Sexual orientation U [facility] History of Social function 2023-09-03 00:00:00 2023-09-03 00:00:00 [facility] Exposure to SARS-CoV-2 (event) 2022-02-05 00:00:00 2022-02-15 08:57:00 Not sure [facility] Tobacco use and exposure 2021-08-24 00:00:00 2021-08-24 00:00:00 Smokeless tobacco non-user [facility] Sex assigned at 1975 00:00:00 1975 00:00:00 [facility] Smoking Status Start Date Stop Date Source Never smoked tobacco [facility] Medications Ordered Medication Name Filled Medication Name Start Date Stop Date Current Medication? Ordering Clinician Indication Dosage Frequency Signature (SIG) Comments Components Source diclofenac sodium 75 mg tablet,mikal yed release 2023-02 0-15 00:00: 00 Yes 1mg [facility] lithium carbonate CR 450 mg SR tablet 2023-02 0-03 00:00: 00 Yes [id number] TAKE TWO TABLETS BY MOUTH AT BEDTIME [facility] clonazePAM 1 mg tablet 11-09 00:00: 00 Yes [id number] TAKE 1/2 TO 1 TABLET BY MOUTH ONCE DAILY NEEDED FOR SEVERE ANXIETY [facility] LAMOTRIGINE 100 mg tablet 11-09 00:00: 00 Yes [id number] TAKE 1 TABLET BY MOUTH 2 TIMES A DAY (MORNING AND EVENING ) TELL DOCTOR IF YOU MISSED 4 OR MORE DAYS OF THIS MEDICATION , WILL NEED TO START AT LOWER DOSE [facility] lithium carbonate CR 450 mg SR tablet 10-16 00:00: 00 11-14 00:00 :00 No [id number] 900mg Take 2 tablets by mouth at bedtime. [facility] traZODone 50 mg tablet 09-18 00:00: 00 12-18 05:59 :00 Yes [id number] 75mg Take 1.5 tablets by mouth at bedtime for 90 days. [facility] busPIRone 30 mg tablet 09-02 00:00: 00 Yes [id number] 30mg Take 1 tablet by mouth in the morning and 1 tablet in the evening. [facility] DULoxetine 60 mg capsule 09-02 00:00: 00 Yes [id number] 60mg Take 1 capsule by mouth in the morning and 1 capsule in the evening. Follow up for refills [facility] clonazePAM (KLONOPIN) 1 mg tablet 09-02 00:00: 00 11-09 00:00 :00 No [id number] 1mg Take 1 tablet by mouth once daily as needed for Other (severe anxiety). Take 0.5mg to 1mg as needed for severe anxiety [facility] lamoTRIgine 100 mg tablet 09-02 00:00: 00 11-09 00:00 :00 No [id number] 100mg Take 1 tablet by mouth in the morning and 1 tablet in the evening. Let your Dr know if you have missed 4 or more days of this medication , we will need to start at a lower dose [facility] traZODone 50 mg tablet 08-27 00:00: 00 09-18 00:00 :00 No [id number] 50mg Take 1 tablet by mouth at bedtime. May cut tablet in half. Follow up for refills [facility] busPIRone 10 mg tablet 16 00:00: 00 09-02 00:00 :00 No [id number] 20mg Take 2 tablets by mouth in the morning and 2 tablets in the evening. Follow up for refills [facility] ferric derisomalto se (MONOFERRIC ) 100 mg iron/mL Soln 08-07 00:00: 00 08-08 04:59 :00 No [id number] 500mg Inject 500 mg intravenou sly once now for 1 dose. [facility] clonazePAM 1 mg tablet 08-01 00:00: 00 09-02 00:00 :00 No [id number] Take half to 1 tablet by mouth once daily as needed for extreme anxiety. Attempt to minimize use. Follow-up for continued refills. [facility] lithium carbonate CR 450 mg SR tablet 07-30 00:00: 00 10-16 00:00 :00 No [id number] 900mg Take 2 tablets by mouth at bedtime. [facility] omeprazole 40 mg capsule 07-25 00:00: 00 07-21 04:59 :00 No [id number] 40mg Take 1 capsule by mouth in the morning and 1 capsule in the evening. Take with meals. Do all this for 360 days. [facility] sucralfate 1 gram tablet 07-25 00:00: 00 10-24 04:59 :00 No [id number] 1g Take 1 tablet by mouth before meals and at bedtime for 90 days. [facility] traZODone 50 mg tablet 07-18 00:00: 00 08-26 00:00 :00 No [id number] 50mg Take 1 tablet by mouth at bedtime. May cut tablet in half. Follow up for refills [facility] DULoxetine 60 mg capsule 5-10 00:00: 00 09-02 00:00 :00 No [id number] 60mg Take 1 capsule by mouth in the morning and 1 capsule in the evening. Follow up for refills [facility] busPIRone 10 mg tablet 06-21 00:00: 00 08-27 00:00 :00 No [id number] 20mg Take 2 tablets by mouth in the morning and 2 tablets in the evening. Follow up for refills [facility] traZODone 50 mg tablet 06-21 00:00: 00 07-18 00:00 :00 No [id number] 50mg Take 1 tablet by mouth at bedtime. May cut tablet in half. Follow up for refills [facility] clonazePAM 1 mg tablet 06-12 00:00: 00 07-30 00:00 :00 No [id number] Take half to 1 tablet by mouth once daily as needed for extreme anxiety. Attempt to minimize use. Follow-up for continued refills. [facility] iopamidol (ISOVUE 370-500 mL) injection 80 mL 06-07 02:57: 00 06-07 02:45 :00 No [id number] 80mL 80 mL, Intravenou s, ONCE, 1 dose, On Sun06/07/23 at 2200, Routine [facility] NaCl 0.9% (NS) injection 5 mL 06-07 02:36: 00 Yes 5mL 5 mL, Slow IV Push, PRN - SEE INSTRUCTIO NS, Starting on Sun06/07/23 at 2136, Until Discontinu ed, 10 mL [facility] traZODone 50 mg tablet 05-22 00:00: 00 06-21 00:00 :00 No [id number] 50mg Take 1 tablet by mouth at bedtime. May cut tablet in half. [facility] DULoxetine 60 mg capsule 10 00:00: 00 06-21 00:00 :00 No [id number] 60mg Take 1 capsule by mouth in the morning and 1 capsule in the evening. [facility] busPIRone 10 mg tablet 3 00:00: 00 06-21 00:00 :00 No [id number] 20mg Take 2 tablets by mouth in the morning and 2 tablets in the evening. [facility] traZODone 50 mg tablet 313 00:00: 00 05-22 00:00 :00 No [id number] 50mg Take 1 tablet by mouth at bedtime. May cut tablet in half. [facility] DULoxetine 60 mg capsule 3 00:00: 00 05-22 00:00 :00 No [id number] 60mg Take 1 capsule by mouth in the morning and 1 capsule in the evening. [facility] DULoxetine 60 mg capsule 24 00:00: 00 04-23 00:00 :00 No [id number] 60mg Take 1 capsule by mouth in the morning and 1 capsule in the evening. [facility] losartan potassium (LOSARTAN ORAL) 02-15 09:55: 13 Yes 20mg Take 20 mg by mouth. [facility] propranolol 80 mg tablet 02-15 09:55: 13 Yes 80mg Take 1 tablet by mouth in the morning and 1 tablet in the evening. [facility] allopurinoL 100 mg tablet 02-15 09:55: 13 Yes 100mg Take 1 tablet by mouth in the morning. [facility] lamoTRIgine 100 mg tablet 2022-02 00:00: 00 09-02 00:00 :00 No [id number] 100mg Take 1 tablet by mouth in the morning and 1 tablet in the evening. [facility] lithium carbonate CR 450 mg SR tablet 2022-02 00:00: 00 07-29 00:00 :00 No [id number] 900mg Take 2 tablets by mouth at bedtime. [facility] clonazePAM 1 mg tablet 2022-02 00:00: 00 06-11 00:00 :00 No [id number] Take half to 1 tablet by mouth once daily as needed for extreme anxiety. Attempt to minimize use. [facility] busPIRone 10 mg tablet 2022-02- 00:00: 00 05-07 00:00 :00 No [id number] 20mg Take 2 tablets by mouth in the morning and 2 tablets in the evening. [facility] traZODone 50 mg tablet 2022-02 00:00: 00 04-22 00:00 :00 No [id number] 50mg Take 1 tablet by mouth at bedtime. May cut tablet in half. [facility] DULoxetine 60 mg capsule 2022-02 00:00: 00 03-07 00:00 :00 No [id number] 60mg Take 1 capsule by mouth in the morning and 1 capsule in the evening. [facility] TAKE 1 TABLET EVERY 4 HOURS NEEDED. 2022-02 00:00: 00 06-12 00:00 :00 No 10 [facility] busPIRone 15 mg tablet 2022-02 00:00: 00 01-22 00:00 :00 No [id number] 15mg Take 1 tablet by mouth in the morning and 1 tablet in the evening. [facility] lithium carbonate CR 450 mg SR tablet 2022-02 00:00: 00 01-22 00:00 :00 No [id number] 900mg Take 2 tablets by mouth at bedtime. [facility] traZODone 50 mg tablet 2022-02 00:00: 00 01-22 00:00 :00 No [id number] 50mg Take 1 tablet by mouth at bedtime. May cut tablet in half. [facility] DULoxetine 60 mg capsule 2022-02 00:00: 00 01-22 00:00 :00 No [id number] 60mg Take 1 capsule by mouth in the morning and 1 capsule in the evening. [facility] lamoTRIgine 100 mg tablet 2022-02 00:00: 00 01-22 00:00 :00 No [id number] 100mg Take 1 tablet by mouth in the morning and 1 tablet in the evening. [facility] clonazePAM 1 mg tablet 2022-02 00:00: 00 01-22 00:00 :00 No [id number] Take 1 tablet by mouth once daily as needed for extreme anxiety. Attempt to minimize use. [facility] busPIRone 15 mg tablet 2022-02 00:00: 00 12-20 00:00 :00 No [id number] 15mg Take 1 tablet by mouth in the morning and 1 tablet in the evening. [facility] lithium carbonate CR 450 mg SR tablet 2022-02 00:00: 00 12-20 00:00 :00 No [id number] 900mg Take 2 tablets by mouth at bedtime. [facility] traZODone 50 mg tablet 2022-02 00:00: 00 12-20 00:00 :00 No [id number] 50mg Take 1 tablet by mouth at bedtime. May cut tablet in half. [facility] TAKE 2 TABLETS ONCE A DAY BY MOUTH 2022-02 00:00: 00 06-12 00:00 :00 No 200 [facility] Viraj DULoxetine 60 mg capsule 2022-02 00:00: 00 12-20 00:00 :00 No [id number] 60mg Take 1 capsule by mouth in the morning and 1 capsule in the evening. [facility] simethicone (GAS RELIEF (SIMETHICON E)) 40 mg/0.6 mL drops 2022-02 13:19: 00 11-13 16:49 :02 No PRN, Starting on Sun11/13/22 at 0819, Until Sun11/13/22 at 1149, Routine, Intra-op [facility] losartan potassium (LOSARTAN ORAL) 2022-02 09:49: 01 Yes 20mg Take 20 mg by mouth. [facility] propranolol 80 mg tablet 2022-02 09:49: 01 Yes 80mg Take 1 tablet by mouth in the morning and 1 tablet in the evening. [facility] allopurinoL 100 mg tablet 2022-02 09:49: 01 Yes 100mg Take 1 tablet by mouth in the morning. [facility] sucralfate 1 gram tablet 2022-02 0-02 00:00: 00 12-14 04:59 :00 No 1g Take 1 tablet by mouth in the morning and 1 tablet in the evening. Do all this for 30 days. [facility] ketorolac (TORADOL) injection 30 mg 11-03 17:00: 00 11-03 16:25 :00 No 30mg 30 mg, Slow IV Push, ONCE, 1 dose, On Sun11/03/22 at 1200, Routine [facility] NaCl 0.9% (NS) bolus infusion 500 mL 11-03 16:45: 00 11-03 18:14 :00 No 500mL at 999 mL/hr, 500 mL, IV Infusion, ONCE, 1 dose, [facility]aff (ESGIC) 50-325-40 mg tablet 1 tablet 11-03 16:00: 00 11-03 16:21 :00 No 1{tbl} 1 tablet, Oral, ONCE, 1 dose, On Sun11/03/22 at 1100, SKYLAR [facility] dexamethaso ne sod phos PF injection 10 mg 11-03 16:00: 00 11-03 16:27 :00 No 10mg 10 mg, Slow IV Push, ONCE, 1 dose, On Sun11/03/22 at 1100, 1 mL [facility] metoclopram chelo HCl (REGLAN) injection 10 mg 11-03 16:00: 00 11-03 16:28 :00 No 10mg 10 mg, Slow IV Push, ONCE, 1 dose, On Sun11/03/22 at 1100, SKYLAR [facility] diphenhydrA MINE (BENADRYL) injection 25 mg 11-03 16:00: 00 11-03 16:30 :00 No 25mg 25 mg, Slow IV Push, ONCE, 1 dose, On Sun11/03/22 at 1100, STAT [facility] atorvastati n 10 mg tablet 11-03 10:48: 00 11-03 00:00 :00 No 10mg Take 10 mg by mouth at bedtime. [facility] butalbital- acetaminoph en-caff 50-325-40 mg tablet 11-03 00:00: 00 Yes [id number] 1{tbl} Take 1 tablet by mouth every 6 (six) hours as needed for Pain (scale 7-10) or Pain (scale 4-6) for up to 12 doses. [facility] peg-electro lyte soln 236-22.74-6 .74 -5.86 gram solution 10-19 00:00: 00 11-03 00:00 :00 No [id number] Take as directed before colonoscop y [facility] TAKE 1 TABLET DAILY. 10-12 00:00: 00 06-12 00:00 :00 No 40 [facility] busPIRone 15 mg tablet 10-04 00:00: 00 12-13 00:00 :00 No [id number] 15mg Take 1 tablet by mouth in the morning and 1 tablet in the evening. [facility] clonazePAM 1 mg tablet 09-28 00:00: 00 12-20 00:00 :00 No [id number] Take 1 tablet by mouth twice daily as needed for anxiety. [facility] DULoxetine 60 mg capsule 09-26 00:00: 00 11-22 00:00 :00 No [id number] 60mg Take 1 capsule by mouth in the morning and 1 capsule in the evening. [facility] lamoTRIgine 100 mg tablet 09-13 00:00: 00 12-20 00:00 :00 No [id number] 100mg Take 1 tablet by mouth in the morning and 1 tablet in the evening. [facility] lithium carbonate CR 450 mg SR tablet 09-13 00:00: 00 11-28 00:00 :00 No [id number] 900mg Take 2 tablets by mouth at bedtime. [facility] busPIRone 10 mg tablet 8- 00:00: 00 10-04 00:00 :00 No [id number] 10mg Take 1 tablet by mouth in the morning and 1 tablet in the evening. [facility] clonazePAM 1 mg tablet 19 00:00: 00 09-25 00:00 :00 No [id number] Take 1 tablet by mouth twice daily as needed for anxiety. [facility] TAKE 2 TABLETS ONCE A DAY BY MOUTH 08-24 00:00: 00 06-12 00:00 :00 No 200 [facility]i FUROSEMIDE ORAL 07-26 09:33: 26 07-26 00:00 :00 No 40mg Take 40 mg by mouth daily. [facility] traZODone 50 mg tablet 07-26 00:00: 00 11-28 00:00 :00 No [id number] 50mg Take 1 tablet by mouth at bedtime. May cut tablet in half. [facility] DULoxetine 60 mg capsule 07-26 00:00: 00 09-25 00:00 :00 No [id number] 60mg Take 1 capsule by mouth in the morning and 1 capsule in the evening. [facility] lamoTRIgine 100 mg tablet 07-26 00:00: 00 09-13 00:00 :00 No [id number] 100mg Take 1 tablet by mouth in the morning and 1 tablet in the evening. [facility] lithium carbonate CR 450 mg SR tablet 07-26 00:00: 00 09-13 00:00 :00 No [id number] 900mg Take 2 tablets by mouth at bedtime. [facility] busPIRone 10 mg tablet 07-26 00:00: 00 09-13 00:00 :00 No [id number] 10mg Take 1 tablet by mouth in the morning and 1 tablet in the evening. [facility] INHALE 2 PUFFS EVERY 4-6 HOURS NEEDED. 6-10 00:00: 00 06-12 00:00 :00 No [id number] [facility] lamoTRIgine 100 mg tablet 6-07 00:00: 00 07-26 00:00 :00 No [id number] 100mg Take 1 tablet by mouth in the morning and 1 tablet in the evening. [facility] clonazePAM 1 mg tablet 5-24 00:00: 00 08-29 00:00 :00 No [id number] Take 1 tablet by mouth twice daily as needed for anxiety. [facility] TAKE 1 CAPSULE 3 TIMES DAILY WITH MEALS. -16 00:00: 00 06-12 00:00 :00 No 120 [facility] DULoxetine 60 mg capsule 5-09 00:00: 00 07-26 00:00 :00 No [id number] 60mg Take 1 capsule by mouth in the morning and 1 capsule in the evening. [facility] lithium carbonate CR 450 mg SR tablet 5-09 00:00: 00 07-26 00:00 :00 No [id number] 900mg Take 2 tablets by mouth at bedtime. [facility] TAKE 1 TABLET TWICE DAILY. 5-04 00:00: 00 06-12 00:00 :00 No 75 [facility] TAKE 1 TABLET BY MOUTH DAILY 4-11 00:00: 00 06-12 00:00 :00 No 200 [facility] Cali TAKE 1 CAPSULE 3 TIMES DAILY WITH MEALS. 4-11 00:00: 00 06-12 00:00 :00 No 120 [facility] TAKE 1 TABLET EVERY 4 HOURS NEEDED. 4-11 00:00: 00 06-12 00:00 :00 No 10 [facility] traZODone 50 mg tablet 3-09 00:00: 00 07-26 00:00 :00 No [id number] 50mg Take 1 tablet by mouth at bedtime. May cut tablet in half. [facility] lamoTRIgine 100 mg tablet 09 00:00: 00 07-19 00:00 :00 No [id number] 100mg Take 1 tablet by mouth in the morning and 1 tablet in the evening. [facility] clonazePAM 1 mg tablet 04-20 00:00: 00 07-05 00:00 :00 No [id number] Take 1 tablet by mouth twice daily as needed for anxiety. [facility] DULoxetine 60 mg capsule 04-20 00:00: 00 06-17 00:00 :00 No [id number] 60mg Take 1 capsule by mouth in the morning and 1 capsule in the evening. [facility] lithium carbonate CR 450 mg SR tablet 04-20 00:00: 00 06-17 00:00 :00 No [id number] 900mg Take 2 tablets by mouth at bedtime. [facility] lamoTRIgine 100 mg tablet 03-09 00:00: 00 04-20 00:00 :00 No [id number] 100mg Take 1 tablet by mouth in the morning and 1 tablet in the evening. [facility] traZODone 50 mg tablet 1- 00:00: 00 04-20 00:00 :00 No [id number] 50mg Take 1 tablet by mouth at bedtime. May cut tablet in half. [facility] lithium carbonate CR 450 mg SR tablet 1- 00:00: 00 04-20 00:00 :00 No [id number] 900mg Take 2 tablets by mouth at bedtime. [facility] DULoxetine 60 mg capsule 1-04 00:00: 00 04-19 00:00 :00 No [id number] 60mg Take 1 capsule by mouth in the morning and 1 capsule in the evening. [facility] clonazePAM 1 mg tablet 0 1-04 00:00: 00 04-19 00:00 :00 No [id number] Take 1 tablet by mouth twice daily as needed for anxiety. [facility] lamoTRIgine 100 mg tablet 2023-0 1-04 00:00: 00 03-09 00:00 :00 No [id number] 100mg Take 1 tablet by mouth in the morning and 1 tablet in the evening. [facility] lithium 600 mg capsule 02-15 00:00: 00 02-15 00:00 :00 No [id number] 600mg Take 1 capsule by mouth in the morning and 1 capsule in the evening. [facility] DULoxetine 60 mg capsule 2021-02 00:00: 00 02-15 00:00 :00 No [id number] 60mg Take 1 capsule by mouth in the morning and 1 capsule in the evening. [facility] lamoTRIgine 100 mg tablet 2021-02 00:00: 00 02-15 00:00 :00 No [id number] 100mg Take 1 tablet by mouth in the morning and 1 tablet in the evening. [facility] traZODone 50 mg tablet 2021-02 00:00: 00 02-15 00:00 :00 No [id number] 50mg Take 1 tablet by mouth at bedtime. May cut tablet in half. [facility] lamoTRIgine 100 mg tablet 2021-02 00:00: 00 02-02 00:00 :00 No [id number] 100mg Take 1 tablet by mouth in the morning and 1 tablet in the evening. [facility] clonazePAM 1 mg tablet 2021-02 00:00: 00 02-15 00:00 :00 No [id number] Take 1 tablet by mouth twice daily as needed for anxiety. [facility] DULoxetine 60 mg capsule 2021-02 00:00: 00 02-07 00:00 :00 No [id number] 60mg Take 1 capsule by mouth in the morning and 1 capsule in the evening. [facility] traZODone 50 mg tablet 2021-02 00:00: 00 01-11 00:00 :00 No [id number] 50mg Take 1 tablet by mouth at bedtime. May cut tablet in half. [facility] DULoxetine 60 mg capsule 2022-1 0-25 00:00: 00 01-09 00:00 :00 No [id number] 60mg Take 1 capsule by mouth in the morning and 1 capsule in the evening. [facility] lithium 600 mg capsule 2021-1 0-20 00:00: 00 02-15 00:00 :00 No [id number] 600mg Take 1 capsule by mouth in the morning and 1 capsule in the evening. [facility] lamoTRIgine 25 mg tablet 2021-02 0-20 00:00: 00 01-11 00:00 :00 No [id number] 50mg Take 2 tablets by mouth in the morning and 2 tablets in the evening. [facility] clonazePAM 1 mg tablet 2021-02 0-20 00:00: 00 01-09 00:00 :00 No [id number] Take 1 tablet by mouth twice daily as needed for anxiety. [facility] lamoTRIgine 25 mg tablet 2021-0 8- 00:00: 00 11-30 00:00 :00 No [id number] 50mg Take 2 tablets by mouth in the morning and 2 tablets in the evening. [facility] clonazePAM 1 mg tablet 2021-0 8-25 00:00: 00 11-30 00:00 :00 No [id number] Take no more than 1 mg twice daily as needed for anxiety [facility] lithium 600 mg capsule 2021-0 8-25 00:00: 00 11-30 00:00 :00 No [id number] 600mg Take 1 capsule by mouth in the morning and 1 capsule in the evening. [facility] Lamotrigine 50 mg tablet 2021-0 8-25 00:00: 00 10-07 00:00 :00 No [id number] 50mg Take 1 tablet by mouth in the morning and 1 tablet in the evening. [facility] Lamotrigine 50 mg tablet 2021-0 8-11 00:00: 00 10-06 00:00 :00 No [id number] 50mg Take 1 tablet by mouth in the morning and 1 tablet in the evening. [facility] DULoxetine 60 mg capsule -27 00:00: 00 12-05 00:00 :00 No [id number] 60mg Take 1 capsule by mouth in the morning and 1 capsule in the evening. [facility] Lamotrigine 50 mg tablet 18 00:00: 00 09-22 00:00 :00 No [id number] 50mg Take 1 tablet by mouth in the morning and 1 tablet in the evening. [facility] lithium 600 mg capsule 7-13 00:00: 00 10-06 00:00 :00 No [id number] 600mg Take 1 capsule by mouth in the morning and 1 capsule in the evening. [facility] DULoxetine 60 mg capsule 08-09 00:00: 00 Yes [id number] 60mg Take 1 capsule by mouth 2 (two) times daily. [facility] traZODone 50 mg tablet 08-09 00:00: 00 01-02 00:00 :00 No [id number] 50mg Take 1 tablet by mouth at bedtime. May cut tablet in half. [facility] clonazePAM 1 mg tablet 08-09 00:00: 00 10-06 00:00 :00 No [id number] Take no more than 1 mg twice daily as needed for anxiety [facility] CYANOCOBALA M INJ 1000MCG Milliliters 06-04 00:00: 00 Yes Robert Cali DULoxetine 60 mg capsule 05-26 00:00: 00 08-09 00:00 :00 No [id number] 60mg Take 1 capsule by mouth 2 (two) times daily. [facility] traZODone 50 mg tablet 14 00:00: 00 08-09 00:00 :00 No [id number] 50mg Take 1 tablet by mouth at bedtime. May cut tablet in half. [facility] vitamin B-12 1,000 mcg tablet 05-23 00:00: 00 11-03 00:00 :00 No [id number] 1000ug Take 1 tablet by mouth daily. [facility] cyanocobala min 1,000 mcg/mL injection 05-23 00:00: 00 11-03 00:00 :00 No [id number] 1000ug 1 mL by Intramuscu lar route weekly. [facility] losartan potassium (LOSARTAN ORAL) 05-17 09:24: 36 Yes 20mg Take 20 mg by mouth. [facility] FUROSEMIDE ORAL 05-17 09:24: 36 Yes 40mg Take 40 mg by mouth daily. [facility] magnesium gluconate 200 mg tablet 05-17 00:00: 00 Yes [id number] 400mg Take 2 tablets by mouth 2 (two) times daily. [facility] gabapentin 300 mg capsule 05-17 00:00: 00 11-03 00:00 :00 No [id number] 300mg Take 1 capsule by mouth 3 (three) times daily. [facility] rizatriptan 5 mg disintegrat ing tablet 05-17 00:00: 00 11-03 00:00 :00 No [id number] 5mg Take 1 tablet by mouth as needed for Migraine (Take 5mg at the beginning of the headache can repeat 2h after if headaches persists). May repeat in 2 hours if needed [facility] magnesium gluconate 200 mg tablet 05-17 00:00: 00 11-03 00:00 :00 No [id number] 400mg Take 2 tablets by mouth 2 (two) times daily. [facility] artificial tears,hypro mellose, 0.5 % ophthalmic drops 05-17 00:00: 00 06-22 00:00 :00 No [id number] 1[drp] Place 1 Drop in left eye as needed for Dry eyes. [facility] Dose Unknown 05-16 00:00: 00 Yes Robert F Viraj Dose Unknown 05-16 00:00: 00 Yes Robert F Viraj Dose Unknown 05-16 00:00: 00 Yes Robert F Viraj Dose Unknown 2022-0 4-04 00:00: 00 Yes Robert F Viraj Dose Unknown 0 4-04 00:00: 00 Yes Robert F Viraj Dose Unknown 0 4-04 00:00: 00 Yes Robert F Viraj Dose Unknown 0 4-04 00:00: 00 Yes Robert F Viraj Dose Unknown 0 4-04 00:00: 00 Yes Robert F Viraj Dose Unknown 0 4-04 00:00: 00 Yes Robert F Viraj Dose Unknown 0 4-04 00:00: 00 Yes Robert F Viraj Dose Unknown 0 4-04 00:00: 00 Yes Robert F Viraj Dose Unknown 0 4-04 00:00: 00 Yes Robert F Viraj Dose Unknown 0 4-04 00:00: 00 Yes Robert F Viraj Dose Unknown 0 4-04 00:00: 00 Yes Robert F Viraj Dose Unknown 0 4-04 00:00: 00 Yes Robert F Viraj Dose Unknown 0 4-04 00:00: 00 Yes Robert F Viraj Dose Unknown 0 4-04 00:00: 00 Yes Robert F Viraj Dose Unknown 0 4-04 00:00: 00 Yes Robert F Viraj Dose Unknown 0 4-04 00:00: 00 Yes Robert Cali clonazePAM 1 mg tablet 331 00:00: 00 08-09 00:00 :00 No [id number] Take no more than 1 mg twice daily as needed for anxiety [facility] lithium 600 mg capsule 330 00:00: 00 06-12 00:00 :00 No [id number] 600mg Take 1 capsule by mouth 2 (two) times daily. [facility] ondansetron (ZOFRAN ODT) 4 mg disintegrat ing tablet 09-02 00:00: 00 11-03 00:00 :00 No [id number] 4mg Take 1 tablet by mouth every 8 (eight) hours as needed for Nausea and Vomiting (N/V). [facility] butalbital- acetaminoph en-caff 50-325-40 mg tablet 2021-0 7-22 00:00: 00 05 00:00 :00 No [id number] 1{tbl} Take 1 tablet by mouth every 6 (six) hours as needed for Pain (scale 7-10). [facility] Dose Unknown 2020-0 6- 00:00: 00 Yes Robert F Viraj Dose Unknown 2020-0 6-02 00:00: 00 Yes Robert F Viraj Dose Unknown 2020-0 6-02 00:00: 00 Yes Robert F Viraj Dose Unknown 2021-0 5-21 00:00: 00 Yes Robert F Viraj Dose Unknown 2021-0 5-19 00:00: 00 Yes Robert F Viraj Dose Unknown 2021-0 5-19 00:00: 00 Yes Robert F Viraj Dose Unknown 2021-0 5-19 00:00: 00 Yes Robert F Viraj Dose Unknown 2021-0 5-19 00:00: 00 Yes Robert F Viraj Dose Unknown 2021-0 5-19 00:00: 00 Yes Robert F Viraj Dose Unknown 2021-0 5-19 00:00: 00 Yes Robert F Viraj Dose Unknown 2021-0 5-19 00:00: 00 Yes Robert F Viraj Dose Unknown 2021-0 5-19 00:00: 00 Yes Robert F Viraj Dose Unknown 2021-0 5-19 00:00: 00 Yes Robert F Viraj Dose Unknown 2021-0 5-19 00:00: 00 Yes Robert F Viraj Dose Unknown 2021-0 5-19 00:00: 00 Yes Robert F Viraj Dose Unknown 2020-0 5-19 00:00: 00 Yes Robert F Viraj Dose Unknown 2021-0 4-28 00:00: 00 Yes Robert F Viraj Dose Unknown 2021-0 4-28 00:00: 00 Yes Robert F Viraj Dose Unknown 2021-0 4-28 00:00: 00 Yes Robert F Viraj allopurinoL 100 mg tablet 08-05 13:17: 52 Yes 100mg Take 1 tablet by mouth in the morning. [facility] atorvastati n 10 mg tablet 08-05 13:17: 52 Yes 10mg Take 10 mg by mouth at bedtime. [facility] propranolol 80 mg tablet 08-05 13:12: 38 Yes 80mg Take 1 tablet by mouth in the morning and 1 tablet in the evening. [facility] Immunizations Ordered Immunization Name Filled Immunization Name Date Status Comments Source Influenza, injectable, MDCK, quadrivalent, preservative Influenza, injectable, MDCK, quadrivalent, preservative 2022-10-27 00:00:00 Completed [facility] Cali Influenza Virus Vaccine Quad .5 mL IM 6+ MO (FLUZONE/FLULAVAL/F LUARIX) 2020-11-13 00:00:00 Completed [facility] Influenza Virus Vaccine Quad .5 mL IM 6+ MO (FLUZONE/FLULAVAL/F LUARIX) 2020-11-13 00:00:00 Completed influenza, injectable influenza, injectable 2020-11-13 00:00:00 Completed Robert Cali TDAP 2020-09-11 00:00:00 Completed [facility] TDAP 2020-09-11 00:00:00 Completed [facility] Tdap Tdap 2020-09-11 00:00:00 Completed Robert Cali SARS-COV-2 COVID-19 VACCINE - (MODERNA) 2020-04-24 00:00:00 Completed [facility] SARS-COV-2 COVID-19 VACCINE - (MODERNA) 2020-04-24 00:00:00 Completed Moderna COVID-19 Vaccine Moderna COVID-19 Vaccine 2020-04-24 00:00:00 Completed Robert Cali SARS-COV-2 COVID-19 VACCINE - (MODERNA) 2020-03-19 00:00:00 Completed [facility] SARS-COV-2 COVID-19 VACCINE - (MODERNA) 2020-03-19 00:00:00 Completed Moderna COVID-19 Vaccine Moderna COVID-19 Vaccine 2020-03-19 00:00:00 Completed Robert Cali TDAP Unknown Completed [facility] Influenza Virus Vaccine Quad .5 mL IM 6+ MO (FLUZONE/FLULAVAL/F LUARIX) Unknown Completed [facility] SARS-COV-2 COVID-19 VACCINE - (MODERNA) Unknown Completed [facility] TDAP Unknown Completed [facility] Influenza Virus Vaccine Quad .5 mL IM 6+ MO (FLUZONE/FLULAVAL/F LUARIX) Unknown Completed [facility] SARS-COV-2 COVID-19 VACCINE - (MODERNA) Unknown Completed [facility] TDAP Unknown Completed [facility] Influenza Virus Vaccine Quad .5 mL IM 6+ MO (FLUZONE/FLULAVAL/F LUARIX) Unknown Completed [facility] SARS-COV-2 COVID-19 VACCINE - (MODERNA) Unknown Completed [facility] TDAP Unknown Completed [facility] Influenza Virus Vaccine Quad .5 mL IM 6+ MO (FLUZONE/FLULAVAL/F LUARIX) Unknown Completed [facility] SARS-COV-2 COVID-19 VACCINE - (MODERNA) Unknown Completed [facility] TDAP Unknown Completed [facility] Influenza Virus Vaccine Quad .5 mL IM 6+ MO (FLUZONE/FLULAVAL/F LUARIX) Unknown Completed [facility] SARS-COV-2 COVID-19 VACCINE - (MODERNA) Unknown Completed [facility] TDAP Unknown Completed [facility] Influenza Virus Vaccine Quad .5 mL IM 6+ MO (FLUZONE/FLULAVAL/F LUARIX) Unknown Completed [facility] SARS-COV-2 COVID-19 VACCINE - (MODERNA) Unknown Completed [facility] TDAP Unknown Completed [facility] Influenza Virus Vaccine Quad .5 mL IM 6+ MO (FLUZONE/FLULAVAL/F LUARIX) Unknown Completed [facility] SARS-COV-2 COVID-19 VACCINE - (MODERNA) Unknown Completed [facility] TDAP Unknown Completed [facility] Influenza Virus Vaccine Quad .5 mL IM 6+ MO (FLUZONE/FLULAVAL/F LUARIX) Unknown Completed [facility] SARS-COV-2 COVID-19 VACCINE - (MODERNA) Unknown Completed [facility] TDAP Unknown Completed [facility] Influenza Virus Vaccine Quad .5 mL IM 6+ MO (FLUZONE/FLULAVAL/F LUARIX) Unknown Completed [facility] SARS-COV-2 COVID-19 VACCINE - (MODERNA) Unknown Completed [facility] TDAP Unknown Completed [facility] Influenza Virus Vaccine Quad .5 mL IM 6+ MO (FLUZONE/FLULAVAL/F LUARIX) Unknown Completed [facility] SARS-COV-2 COVID-19 VACCINE - (MODERNA) Unknown Completed [facility] TDAP Unknown Completed [facility] Influenza Virus Vaccine Quad .5 mL IM 6+ MO (FLUZONE/FLULAVAL/F LUARIX) Unknown Completed [facility] SARS-COV-2 COVID-19 VACCINE - (MODERNA) Unknown Completed [facility] TDAP Unknown Completed [facility] Influenza Virus Vaccine Quad .5 mL IM 6+ MO (FLUZONE/FLULAVAL/F LUARIX) Unknown Completed [facility] SARS-COV-2 COVID-19 VACCINE - (MODERNA) Unknown Completed [facility] TDAP Unknown Completed [facility] Influenza Virus Vaccine Quad .5 mL IM 6+ MO (FLUZONE/FLULAVAL/F LUARIX) Unknown Completed [facility] SARS-COV-2 COVID-19 VACCINE - (MODERNA) Unknown Completed [facility] TDAP Unknown Completed [facility] Influenza Virus Vaccine Quad .5 mL IM 6+ MO (FLUZONE/FLULAVAL/F LUARIX) Unknown Completed [facility] SARS-COV-2 COVID-19 VACCINE - (MODERNA) Unknown Completed [facility] TDAP Unknown Completed [facility] Influenza Virus Vaccine Quad .5 mL IM 6+ MO (FLUZONE/FLULAVAL/F LUARIX) Unknown Completed [facility] SARS-COV-2 COVID-19 VACCINE - (MODERNA) Unknown Completed [facility] TDAP Unknown Completed [facility] Influenza Virus Vaccine Quad .5 mL IM 6+ MO (FLUZONE/FLULAVAL/F LUARIX) Unknown Completed [facility] SARS-COV-2 COVID-19 VACCINE - (MODERNA) Unknown Completed [facility] TDAP Unknown Completed [facility] Influenza Virus Vaccine Quad .5 mL IM 6+ MO (FLUZONE/FLULAVAL/F LUARIX) Unknown Completed [facility] SARS-COV-2 COVID-19 VACCINE - (MODERNA) Unknown Completed [facility] TDAP Unknown Completed [facility] Influenza Virus Vaccine Quad .5 mL IM 6+ MO (FLUZONE/FLULAVAL/F LUARIX) Unknown Completed [facility] SARS-COV-2 COVID-19 VACCINE - (MODERNA) Unknown Completed [facility] TDAP Unknown Completed [facility] Influenza Virus Vaccine Quad .5 mL IM 6+ MO (FLUZONE/FLULAVAL/F LUARIX) Unknown Completed [facility] SARS-COV-2 COVID-19 VACCINE - (MODERNA) Unknown Completed [facility] TDAP Unknown Completed [facility] Influenza Virus Vaccine Quad .5 mL IM 6+ MO (FLUZONE/FLULAVAL/F LUARIX) Unknown Completed [facility] SARS-COV-2 COVID-19 VACCINE - (MODERNA) Unknown Completed [facility] TDAP Unknown Completed [facility] Influenza Virus Vaccine Quad .5 mL IM 6+ MO (FLUZONE/FLULAVAL/F LUARIX) Unknown Completed [facility] SARS-COV-2 COVID-19 VACCINE - (MODERNA) Unknown Completed [facility] TDAP Unknown Completed [facility] Influenza Virus Vaccine Quad .5 mL IM 6+ MO (FLUZONE/FLULAVAL/F LUARIX) Unknown Completed [facility] TDAP Unknown Completed [facility] Influenza Virus Vaccine Quad .5 mL IM 6+ MO (FLUZONE/FLULAVAL/F LUARIX) Unknown Completed [facility] SARS-COV-2 COVID-19 VACCINE - (MODERNA) Unknown Completed [facility] TDAP Unknown Completed [facility] Influenza Virus Vaccine Quad .5 mL IM 6+ MO (FLUZONE/FLULAVAL/F LUARIX) Unknown Completed [facility] SARS-COV-2 COVID-19 VACCINE - (MODERNA) Unknown Completed [facility] SARS-COV-2 COVID-19 VACCINE - (MODERNA) Unknown Completed [facility] TDAP Unknown Completed [facility] Influenza Virus Vaccine Quad .5 mL IM 6+ MO (FLUZONE/FLULAVAL/F LUARIX) Unknown Completed [facility] SARS-COV-2 COVID-19 VACCINE - (MODERNA) Unknown Completed [facility] TDAP Unknown Completed [facility] Influenza Virus Vaccine Quad .5 mL IM 6+ MO (FLUZONE/FLULAVAL/F LUARIX) Unknown Completed [facility] SARS-COV-2 COVID-19 VACCINE - (MODERNA) Unknown Completed [facility] TDAP Unknown Completed [facility] Influenza Virus Vaccine Quad .5 mL IM 6+ MO (FLUZONE/FLULAVAL/F LUARIX) Unknown Completed [facility] SARS-COV-2 COVID-19 VACCINE - (MODERNA) Unknown Completed [facility] TDAP Unknown Completed [facility] Influenza Virus Vaccine Quad .5 mL IM 6+ MO (FLUZONE/FLULAVAL/F LUARIX) Unknown Completed [facility] SARS-COV-2 COVID-19 VACCINE - (MODERNA) Unknown Completed [facility] TDAP Unknown Completed [facility] Influenza Virus Vaccine Quad .5 mL IM 6+ MO (FLUZONE/FLULAVAL/F LUARIX) Unknown Completed [facility] SARS-COV-2 COVID-19 VACCINE - (MODERNA) Unknown Completed [facility] Vital Signs Vital Name Observation Time Observation Value Comments S ource Systolic blood pressure 2023-07-26 14:17:00 177 mm[Hg] [facility] Diastolic blood pressure 2023-07-26 14:17:00 92 mm[Hg] [facility] Heart rate 2023-07-26 14:17:00 97 /min [facility] Body temperature 2023-07-26 14:17:00 36.39 Verna [facility] Respiratory rate 2023-07-26 14:17:00 18 /min [facility] Body height 2023-07-26 14:17:00 167.6 cm [facility] Body weight 2023-07-26 14:17:00 100.472 kg [facility] BMI 2023-07-26 14:17:00 35.75 kg/m2 [facility] Oxygen saturation in Arterial blood by Pulse oximetry 2023-07-26 14:17:00 97 /min [facility] Systolic blood pressure 2023-06-08 07:00:00 112 mm[Hg] [facility] Diastolic blood pressure 2023-06-08 07:00:00 62 mm[Hg] [facility] Heart rate 2023-06-08 07:00:00 72 /min [facility] Respiratory rate 2023-06-08 07:00:00 20 /min [facility] Oxygen saturation in Arterial blood by Pulse oximetry 2023-06-08 07:00:00 97 /min [facility] Body weight 2023-06-08 02:41:00 108.863 kg [facility] BMI 2023-06-08 02:41:00 38.74 kg/m2 [facility] Body temperature 2023-06-08 02:38:00 36.67 Verna [facility] Body height 2023-06-08 02:34:00 167.6 cm [facility] Systolic blood pressure 2023-02-15 15:53:00 132 mm[Hg] [facility] Diastolic blood pressure 2023-02-15 15:53:00 73 mm[Hg] [facility] Heart rate 2023-02-15 15:53:00 74 /min [facility] Body temperature 2023-02-15 15:53:00 36.44 Verna [facility] Respiratory rate 2023-02-15 15:53:00 16 /min [facility] Body height 2023-02-15 15:53:00 167.6 cm [facility] Body weight 2023-02-15 15:53:00 100.336 kg [facility] BMI 2023-02-15 15:53:00 35.70 kg/m2 [facility] Oxygen saturation in Arterial blood by Pulse oximetry 2023-02-15 15:53:00 100 /min [facility] Systolic blood pressure 2022-11-13 14:08:00 117 mm[Hg] [facility] Diastolic blood pressure 2022-11-13 14:08:00 70 mm[Hg] [facility] Heart rate 2022-11-13 14:08:00 64 /min [facility] Respiratory rate 2022-11-13 14:08:00 12 /min [facility] Oxygen saturation in Arterial blood by Pulse oximetry 2022-11-13 14:08:00 99 /min [facility] Body temperature 2022-11-13 13:38:00 36.39 Verna [facility] Body height 2022-11-13 12:15:00 167.6 cm [facility] Body weight 2022-11-13 12:15:00 95.21 kg [facility] BMI 2022-11-13 12:15:00 33.88 kg/m2 [facility] Systolic blood pressure 2022-11-13 12:15:00 142 mm[Hg] [facility] Diastolic blood pressure 2022-11-13 12:15:00 66 mm[Hg] [facility] Heart rate 2022-11-13 12:15:00 77 /min [facility] Body temperature 2022-11-13 12:15:00 36 Verna [facility] Respiratory rate 2022-11-13 12:15:00 21 /min [facility] Body height 2022-11-13 12:15:00 167.6 cm [facility] Body weight 2022-11-13 12:15:00 95.21 kg [facility] BMI 2022-11-13 12:15:00 33.88 kg/m2 [facility] Oxygen saturation in Arterial blood by Pulse oximetry 2022-11-13 12:15:00 95 /min [facility] Systolic blood pressure 2022-11-03 15:35:00 154 mm[Hg] [facility] Diastolic blood pressure 2022-11-03 15:35:00 86 mm[Hg] [facility] Heart rate 2022-11-03 15:35:00 86 /min [facility] Body temperature 2022-11-03 15:35:00 37 Verna [facility] Respiratory rate 2022-11-03 15:35:00 18 /min [facility] Body height 2022-11-03 15:35:00 167.6 cm [facility] Body weight 2022-11-03 15:35:00 97.523 kg [facility] BMI 2022-11-03 15:35:00 34.70 kg/m2 [facility] Oxygen saturation in Arterial blood by Pulse oximetry 2022-11-03 15:35:00 99 /min [facility] Systolic blood pressure 2022-10-19 12:35:00 159 mm[Hg] Provider Notified [facility] Diastolic blood pressure 2022-10-19 12:35:00 85 mm[Hg] Provider Notified [facility] Heart rate 2022-10-19 12:35:00 94 /min [facility] Body temperature 2022-10-19 12:33:00 36.78 Verna [facility] Respiratory rate 2022-10-19 12:33:00 16 /min [facility] Body height 2022-10-19 12:33:00 167.6 cm [facility] Body weight 2022-10-19 12:33:00 96.616 kg [facility] BMI 2022-10-19 12:33:00 34.38 kg/m2 [facility] Oxygen saturation in Arterial blood by Pulse oximetry 2022-10-19 12:33:00 98 /min [facility] BP Systolic 2023-11-27 08:18:00 168 mm[Hg] Robert Cali BP Diastolic 2023-11-27 08:18:00 93 mm[Hg] Robert Cali Weight Measured 2023-11-27 08:18:00 214.60 pounds Robert Cali Height Measured 2023-11-27 08:18:00 66.00 inches Robert Cali Body Temperature 2023-11-27 08:18:00 97.80 degrees Robert Cali Heart Rate 2023-11-27 08:18:00 88.00 /min Robert Cali Respiratory Rate 2023-11-27 08:18:00 18.00 /min Robert Cali Systolic blood pressure 2023-09-03 14:41:00 131 mm[Hg] [facility] Diastolic blood pressure 2023-09-03 14:41:00 73 mm[Hg] [facility] Heart rate 2023-09-03 14:41:00 93 /min [facility] Respiratory rate 2023-09-03 14:38:00 20 /min [facility] Body height 2023-09-03 14:38:00 167.6 cm [facility] Body weight 2023-09-03 14:38:00 100.2 kg [facility] BMI 2023-09-03 14:38:00 35.65 kg/m2 [facility] Systolic blood pressure 2023-07-26 14:17:00 177 mm[Hg] [facility] Diastolic blood pressure 2023-07-26 14:17:00 92 mm[Hg] [facility] Heart rate 2023-07-26 14:17:00 97 /min [facility] Body temperature 2023-07-26 14:17:00 36.39 Verna [facility] Respiratory rate 2023-07-26 14:17:00 18 /min [facility] Body height 2023-07-26 14:17:00 167.6 cm [facility] Body weight 2023-07-26 14:17:00 100.472 kg [facility] BMI 2023-07-26 14:17:00 35.75 kg/m2 [facility] Oxygen saturation in Arterial blood by Pulse oximetry 2023-07-26 14:17:00 97 /min [facility] Systolic blood pressure 2023-06-08 07:00:00 112 mm[Hg] [facility] Diastolic blood pressure 2023-06-08 07:00:00 62 mm[Hg] [facility] Heart rate 2023-06-08 07:00:00 72 /min [facility] Respiratory rate 2023-06-08 07:00:00 20 /min [facility] Oxygen saturation in Arterial blood by Pulse oximetry 2023-06-08 07:00:00 97 /min [facility] Body weight 2023-06-08 02:41:00 108.863 kg [facility] BMI 2023-06-08 02:41:00 38.74 kg/m2 [facility] Body temperature 2023-06-08 02:38:00 36.67 Verna [facility] Body height 2023-06-08 02:34:00 167.6 cm [facility] BP Systolic 2023-05-22 08:18:00 134 mm[Hg] Robert Cali BP Diastolic 2023-05-22 08:18:00 65 mm[Hg] Robert Cali Weight Measured 2023-05-22 08:18:00 219.00 pounds Robert Cali Height Measured 2023-05-22 08:18:00 66.00 inches Robert Cali Body Temperature 2023-05-22 08:18:00 97.50 degrees Robert Cali Heart Rate 2023-05-22 08:18:00 83.00 /min Robert Cali Respiratory Rate 2023-05-22 08:18:00 19.00 /min Robert Cali Systolic blood pressure 2023-02-15 15:53:00 132 mm[Hg] [facility] Diastolic blood pressure 2023-02-15 15:53:00 73 mm[Hg] [facility] Heart rate 2023-02-15 15:53:00 74 /min [facility] Body temperature 2023-02-15 15:53:00 36.44 Verna [facility] Respiratory rate 2023-02-15 15:53:00 16 /min [facility] Body height 2023-02-15 15:53:00 167.6 cm [facility] Body weight 2023-02-15 15:53:00 100.336 kg [facility] BMI 2023-02-15 15:53:00 35.70 kg/m2 [facility] Oxygen saturation in Arterial blood by Pulse oximetry 2023-02-15 15:53:00 100 /min [facility] Systolic blood pressure 2023-01-22 15:03:00 144 mm[Hg] [facility] Diastolic blood pressure 2023-01-22 15:03:00 83 mm[Hg] [facility] Heart rate 2023-01-22 15:03:00 97 /min [facility] Respiratory rate 2023-01-22 15:00:00 18 /min [facility] Body height 2023-01-22 15:00:00 167.6 cm [facility] Body weight 2023-01-22 15:00:00 95.2 kg [facility] BMI 2023-01-22 15:00:00 33.88 kg/m2 [facility] BP Systolic 2022-12-20 09:52:00 109 mm[Hg] Robert Cali BP Diastolic 2022-12-20 09:52:00 59 mm[Hg] Robert Cali Weight Measured 2022-12-20 09:52:00 217.00 pounds Robert Cali Height Measured 2022-12-20 09:52:00 66.00 inches Robert Cali Body Temperature 2022-12-20 09:52:00 98.40 degrees Robert Cali Heart Rate 2022-12-20 09:52:00 66.00 /min Robert Cali Respiratory Rate 2022-12-20 09:52:00 Robert Cali Systolic blood pressure 2022-11-13 14:08:00 117 mm[Hg] [facility] Diastolic blood pressure 2022-11-13 14:08:00 70 mm[Hg] [facility] Heart rate 2022-11-13 14:08:00 64 /min [facility] Respiratory rate 2022-11-13 14:08:00 12 /min [facility] Oxygen saturation in Arterial blood by Pulse oximetry 2022-11-13 14:08:00 99 /min [facility] Body temperature 2022-11-13 13:38:00 36.39 Verna [facility] Body height 2022-11-13 12:15:00 167.6 cm [facility] Body weight 2022-11-13 12:15:00 95.21 kg [facility] BMI 2022-11-13 12:15:00 33.88 kg/m2 [facility] Systolic blood pressure 2022-11-03 15:35:00 154 mm[Hg] [facility] Diastolic blood pressure 2022-11-03 15:35:00 86 mm[Hg] [facility] Heart rate 2022-11-03 15:35:00 86 /min [facility] Body temperature 2022-11-03 15:35:00 37 Verna [facility] Respiratory rate 2022-11-03 15:35:00 18 /min [facility] Body height 2022-11-03 15:35:00 167.6 cm [facility] Body weight 2022-11-03 15:35:00 97.523 kg [facility] BMI 2022-11-03 15:35:00 34.70 kg/m2 [facility] Oxygen saturation in Arterial blood by Pulse oximetry 2022-11-03 15:35:00 99 /min [facility] BP Systolic 2022-10-12 10:06:00 140 mm[Hg] Robert Cali BP Diastolic 2022-10-12 10:06:00 78 mm[Hg] Robert Cali Weight Measured 2022-10-12 10:06:00 212.20 pounds Robert Cali Height Measured 2022-10-12 10:06:00 66.00 inches Robert Cali Body Temperature 2022-10-12 10:06:00 97.40 degrees Robert Cali Heart Rate 2022-10-12 10:06:00 93.00 /min Robert Cali Respiratory Rate 2022-10-12 10:06:00 Robert Cali Systolic blood pressure 2022-10-04 14:26:00 149 mm[Hg] [facility] Diastolic blood pressure 2022-10-04 14:26:00 76 mm[Hg] [facility] Heart rate 2022-10-04 14:26:00 78 /min [facility] Respiratory rate 2022-10-04 14:21:00 18 /min [facility] Body height 2022-10-04 14:21:00 167.6 cm [facility] Body weight 2022-10-04 14:21:00 96.843 kg [facility] BMI 2022-10-04 14:21:00 34.46 kg/m2 [facility] Systolic blood pressure 2022-07-26 13:22:00 135 mm[Hg] [facility] Diastolic blood pressure 2022-07-26 13:22:00 78 mm[Hg] [facility] Heart rate 2022-07-26 13:22:00 85 /min [facility] Respiratory rate 2022-07-26 13:22:00 18 /min [facility] Body height 2022-07-26 13:22:00 167.6 cm [facility] Body weight 2022-07-26 13:22:00 97.523 kg [facility] BMI 2022-07-26 13:22:00 34.70 kg/m2 [facility] BP Systolic 2022-06-27 13:54:00 132 mm[Hg] Robert F Viraj BP Diastolic 2022-06-27 13:54:00 77 mm[Hg] Robert F Viraj Weight Measured 2022-06-27 13:54:00 217.80 pounds Robert F Viraj Height Measured 2022-06-27 13:54:00 66.00 inches Robert F Viraj Body Temperature 2022-06-27 13:54:00 97.80 degrees Robert F Viraj Heart Rate 2022-06-27 13:54:00 90.00 /min Robert F Viraj Respiratory Rate 2022-06-27 13:54:00 Robert F Viraj BP Systolic 2022-06-21 08:56:00 135 mm[Hg] Robert F Viraj BP Diastolic 2022-06-21 08:56:00 75 mm[Hg] Robert F Viraj Weight Measured 2022-06-21 08:56:00 225.00 pounds Robert F Viraj Height Measured 2022-06-21 08:56:00 66.00 inches Robert F Viraj Body Temperature 2022-06-21 08:56:00 97.30 degrees Robert F Viraj Heart Rate 2022-06-21 08:56:00 81.00 /min Robert F Viraj Respiratory Rate 2022-06-21 08:56:00 Robert F Viraj BP Systolic 2022-06-15 15:23:00 150 mm[Hg] Robert F Viraj BP Diastolic 2022-06-15 15:23:00 85 mm[Hg] Robert F Viraj Weight Measured 2022-06-15 15:23:00 224.80 pounds Robert F Viraj Height Measured 2022-06-15 15:23:00 66.00 inches Robert F Viraj Body Temperature 2022-06-15 15:23:00 98.10 degrees Robert F Viraj Heart Rate 2022-06-15 15:23:00 98.00 /min Robert F Viraj Respiratory Rate 2022-06-15 15:23:00 Robert F Viraj BP Systolic 2022-05-23 11:20:00 135 mm[Hg] Robert Cali BP Diastolic 2022-05-23 11:20:00 64 mm[Hg] Robert Cali Weight Measured 2022-05-23 11:20:00 230.00 pounds Robert Cali Height Measured 2022-05-23 11:20:00 66.00 inches Robert Cali Body Temperature 2022-05-23 11:20:00 97.80 degrees Robert Cali Heart Rate 2022-05-23 11:20:00 87.00 /min Robert Cali Respiratory Rate 2022-05-23 11:20:00 Robert Cali BP Systolic 2022-05-11 13:46:00 142 mm[Hg] Robert Cali BP Diastolic 2022-05-11 13:46:00 60 mm[Hg] Robert Cali Weight Measured 2022-05-11 13:46:00 225.80 pounds Robert Cali Height Measured 2022-05-11 13:46:00 66.00 inches Robert Cali Body Temperature 2022-05-11 13:46:00 97.80 degrees Robert Cali Heart Rate 2022-05-11 13:46:00 92.00 /min Robert Cali Respiratory Rate 2022-05-11 13:46:00 25.00 /min Robert Cali Systolic blood pressure 2022-02-15 14:59:00 131 mm[Hg] [facility] Diastolic blood pressure 2022-02-15 14:59:00 70 mm[Hg] [facility] Heart rate 2022-02-15 14:59:00 81 /min [facility] Respiratory rate 2022-02-15 14:59:00 18 /min [facility] Body height 2022-02-15 14:59:00 167.6 cm [facility] Body weight 2022-02-15 14:59:00 102.967 kg [facility] BMI 2022-02-15 14:59:00 36.64 kg/m2 [facility] Respiratory rate 2022-01-11 17:11:00 18 /min [facility] Body height 2022-01-11 17:11:00 167.6 cm [facility] Body weight 2022-01-11 17:11:00 100.699 kg [facility] BMI 2022-01-11 17:11:00 35.83 kg/m2 [facility] Systolic blood pressure 2021-08-24 14:24:00 133 mm[Hg] [facility] Diastolic blood pressure 2021-08-24 14:24:00 73 mm[Hg] [facility] Heart rate 2021-08-24 14:24:00 69 /min [facility] Respiratory rate 2021-08-24 14:24:00 18 /min [facility] Body height 2021-08-24 14:24:00 167.6 cm [facility] Body weight 2021-08-24 14:24:00 100.245 kg [facility] BMI 2021-08-24 14:24:00 35.67 kg/m2 [facility] Oxygen saturation in Arterial blood by Pulse oximetry 2021-06-07 15:30:00 96 /min [facility] Body temperature 2021-06-07 14:20:30 37.44 Verna [facility] BP Systolic 2020-07-14 23:18:00 Robert Cali BP Diastolic 2020-07-14 23:18:00 Robert Cali Weight Measured 2020-07-14 23:18:00 Robert Cali Height Measured 2020-07-14 23:18:00 Robert Cali Body Temperature 2020-07-14 23:18:00 Robert Cali Heart Rate 2020-07-14 23:18:00 Robert Cali Respiratory Rate 2020-07-14 23:18:00 Robert Cali Procedures Procedure Date / Time Performed Performing Clinician Source URINALYSIS 2023-06-08 03:45:00 Rhiannon Vizcarra [facility] URINE DRUG (IMMUNOASSAY) - COMPREHENSIVE DRUG SCREEN W/O REFLEX 2023-06-08 03:45:00 Marysol Pabon [facility] URINALYSIS 2023-06-08 03:45:00 Rhiannon Vizcarra [facility] URINE DRUG (IMMUNOASSAY) - COMPREHENSIVE DRUG SCREEN W/O REFLEX 2023-06-08 03:45:00 Marysol Pabon [facility] CT STROKE ANGIOGRAM HEAD 2023-06-08 02:56:58 Rhiannon Vizcarra [facility] CT STROKE ANGIOGRAM NECK 2023-06-08 02:56:58 Rhiannon Vizcarra [facility] HB ECG ROUTINE & RHYTHM STRIP 2023-06-08 02:53:51 Rhiannon Vizcarra [facility] CT STROKE HEAD WO CONTRAST 2023-06-08 02:48:28 Rhiannon Vizcarra [facility] TROPONIN I 2023-06-08 02:45:00 Rhiannon Vizcarra [facility] BASIC METABOLIC PANEL (NA, K , CL, CO2, GLUCOSE, BUN, CREATININE, CA) 2023-06-08 02:45:00 Rhiannon Vizcarra [facility] LITHIUM 2023-06-08 02:45:00 Marysol Pabon [facility] ETHANOL 2023-06-08 02:45:00 Marysol Pabon [facility] CBC WITHOUT DIFF 2023-06-08 02:45:00 Rhiannon Vizcarra [facility] PROTHROMBIN TIME / INR 2023-06-08 02:45:00 Rhiannon Vizcarra [facility] ACTIVATED PARTIAL THRMPLAS CIPRIANO 2023-05-15 6 02:45:00 Rhiannon Vizcarra [facility] EXTRA TUBE LAV 2023-06-08 02:45:00 Marysol Pabon [facility] PROTHROMBIN TIME / INR 2023-06-08 02:45:00 Rhiannon Vizcarra [facility] ACTIVATED PARTIAL THRMPLAS CIPRIANO 2023-05-15 6 02:45:00 Rhiannon Vizcarra [facility] CBC WITHOUT DIFF 2023-06-08 02:45:00 Rhiannon Vizcarra [facility] TROPONIN I 2023-06-08 02:45:00 Rhiannon Vizcarra [facility] BASIC METABOLIC PANEL (NA, K , CL, CO2, GLUCOSE, BUN, CREATININE, CA) 2023-06-08 02:45:00 Rhiannon Vizcarra [facility] ETHANOL 2023-06-08 02:45:00 Marysol Pabon [facility] LITHIUM 2023-06-08 02:45:00 Marysol Pabon [facility] EXTRA TUBE LAV 2023-06-08 02:45:00 Sidney PabonChina [facility] POCT GLUCOSE(AGE >30DAYS) 2023-06-08 02:39:00 Rhiannon Vizcarra [facility] POCT GLUCOSE(AGE >30DAYS) 2023-06-08 02:39:00 Rhiannon Vizcarra [facility] IRON PANEL 2023-02-15 16:30:00 Elidia Cordero [facility] FERRITIN SERUM 2023-02-15 16:30:00 Elidia Cordero [facility] LITHIUM 2023-01-22 16:35:00 Rosalind Freed [facility] CONSENT/REFUSAL FOR DIAGNOSI S AND TREATMENT 2023-01-22 14:56:09 Doctor Unassigned, Hayes [facility] CONSENT/REFUSAL FOR DIAGNOSI S AND TREATMENT 2023-01-22 14:56:09 Doctor Unassigned, Hayes [facility] SURGICAL PATHOLOGY EXAM 2022-11-13 13:05:00 Bossman [facility] ESOPHAGOGASTRODUODENOSCOPY 2022-11-13 12:47:00 Bossman [facility] COLONOSCOPY 2022-11-13 12:47:00 Bossman [facility] ESOPHAGOGASTRODUODENOSCOPY 2022-11-13 12:47:00 Bossman [facility] COLONOSCOPY 2022-11-13 12:47:00 Bossman [facility] COLONOSCOPY (ENDO) 2022-11-13 12:28:53 [facility] COLONOSCOPY (ENDO) 2022-11-13 12:28:53 Jewel [facility] COLONOSCOPY (ENDO) 2022-11-13 12:28:53 [facility] EGD (ENDO) 2022-11-13 12:19:29 [facility] EGD (ENDO) 2022-11-13 12:19:29 [facility] EGD (ENDO) 2022-11-13 12:19:29 [facility] CONSENT/REFUSAL FOR DIAGNOSI S AND TREATMENT 2022-11-13 12:17:09 Doctor Unassigned, Hayes [facility] CONSENT/REFUSAL FOR DIAGNOSI S AND TREATMENT 2022-11-13 12:17:09 Doctor Unassigned, Hayes [facility] ASSIGNMENT OF BENEFITS 2022-11-13 11:59:03 Doctor Unassigned, Hayes [facility] ASSIGNMENT OF BENEFITS 2022-11-13 11:59:03 Doctor Unassigned, Hayes [facility] ENDOSCOPY PROCEDURE DOCUMENTATION 2022-02 0 05:01:00 Doctor Unassigned, Hayes [facility] ENDOSCOPY PROCEDURE DOCUMENTATION 2022-02 002 05:01:00 Doctor Unassigned, Hayes [facility] COMP. METABOLIC PANEL (26782) 2022-11-03 16:24:00 Dora Newman [facility] CBC WITH DIFF 2022-11-03 16:24:00 Dora Newman [facility] POCT TEST 2022-11-03 16:24:00 Dora Newman [facility] CBC WITH DIFF 2022-11-03 16:24:00 Dora Newman [facility] POCT TEST 2022-11-03 16:24:00 Dora Newman [facility] COMP. METABOLIC PANEL (08905) 2022-11-03 16:24:00 Dora Newman [facility] URINALYSIS 2022-11-03 16:18:00 Dora Newman [facility] URINALYSIS 2022-11-03 16:18:00 Dora Newman [facility] RAPID STREP SCREEN FOR GROUP A 2022-10-14 2 16:14:00 Dora Newman [facility] RAPID STREP SCREEN FOR GROUP A 2022-10-14 2 16:14:00 Dora Newman [facility] THROAT CULTURE 2022-11-03 16:14:00 Dora Newman [facility] CONSENT/REFUSAL FOR DIAGNOSI S AND TREATMENT 2022-11-03 15:27:05 Doctor Unassigned, Hayes [facility] CONSENT/REFUSAL FOR DIAGNOSI S AND TREATMENT 2022-11-03 15:27:05 Doctor Unassigned, Hayes [facility] EMERGENCY SERVICES AGREEMENT S AND AUTHORIZATIONS 2022-11-03 05:01:00 Doctor Unassigned, Hayes [facility] HELICOBACTER PYLORI ANTIGEN, FECAL BY EIA 2022-10-19 13:44:00 Elidia Cordero [facility] HELICOBACTER PYLORI ANTIGEN, FECAL BY EIA 2022-10-19 13:44:00 Elidia Cordero [facility] FERRITIN SERUM 2022-10-19 13:35:00 Elidia Cordero [facility] IRON PANEL 2022-10-19 13:35:00 Elidia Cordero [facility] CELIAC SCREEN 2022-10-19 13:35:00 Elidia Cordero [facility] LAB ONLY CELIAC SCREEN IGA 2022-10-19 13:35:00 Elidia Cordero [facility] IRON PANEL 2022-10-19 13:35:00 Elidia Cordero [facility] CELIAC SCREEN 2022-10-19 13:35:00 Elidia Cordero [facility] FERRITIN SERUM 2022-10-19 13:35:00 Elidia Cordero [facility] LAB ONLY CELIAC SCREEN IGA 2022-10-19 13:35:00 Elidia Cordero [facility] DISCLOSURE AND CONSENT, MEDI JAVAD AND SURGICAL PROCEDURES 2022-10-19 05:01:00 Doctor Unassigned, Hayes [facility] DISCLOSURE AND CONSENT, [facility] JAVAD AND SURGICAL PROCEDURES 2022-10-19 05:01:00 Doctor Unassigned, Hayes [facility] REFERRAL- REQUEST/RESPONSE 2022-10-12 05:01:00 Doctor Unassigned, Hayes [facility] REFERRAL- REQUEST/RESPONSE 2022-10-12 05:01:00 Doctor Unassigned, Hayes [facility] THYROID STIMULATING HORMONE 2022-10-05 15:15:00 Rosalind Freed [facility] COMP. METABOLIC PANEL ([id number]) 2022-10-05 15:15:00 Abdiaziz [facility] LIPID PANEL ([id number])(TOTAL CHOLESTEROL, TRIGLYCERIDES, HDL) 2022-10-05 15:15:00 Abdiaziz [facility] LITHIUM 2022-10-05 15:15:00 Sara Hester [facility] CBC WITH DIFF 2022-10-05 15:15:00 Abdiaziz [facility] GLYCOSYLATED HEMOGLOBIN (A1C) 2022-10-05 15:15:00 Abdiaziz [facility] CBC WITH DIFF 2022-10-05 15:15:00 Abdiaziz [facility] COMP. METABOLIC PANEL (99367) 2022-10-05 15:15:00 Abdiaziz [facility] GLYCOSYLATED HEMOGLOBIN (A1C) 2022-10-05 15:15:00 Abdiaziz [facility] LIPID PANEL ([id number])(TOTAL CHOLESTEROL, TRIGLYCERIDES, HDL) 2022-10-05 15:15:00 Abdiaziz [facility] THYROID STIMULATING HORMONE 2022-10-05 15:15:00 Abdiaziz [facility] LITHIUM 2022-10-05 15:15:00 Sara Hester [facility] ASSIGNMENT OF BENEFITS 2022-10-04 14:17:30 Doctor Unassigned, Hayes [facility] ASSIGNMENT OF BENEFITS 2022-10-04 14:17:30 Doctor Unassigned, Hayes [facility] LITHIUM 2022-07-26 14:49:00 Angela Sage [facility] PATIENT FINANCIAL POLICY 2022-07-26 13:16:12 Doctor Unassigned, Hayes [facility] PATIENT FINANCIAL POLICY 2022-07-26 13:16:12 Doctor Unassigned, Hayes [facility] EXTERNAL PROVIDER RECORDS 2022-04-08 06:01:00 Doctor Unassigned, Hayes [facility] EXTERNAL PROVIDER RECORDS 2022-04-08 06:01:00 Doctor Unassigned, Hayes [facility] EXTERNAL PROVIDER RECORDS 2022-02-21 06:01:00 Doctor Unassigned, Hayes [facility] EXTERNAL PROVIDER RECORDS 2022-02-21 06:01:00 Doctor Unassigned, Hayes [facility] LITHIUM 2022-02-15 15:58:00 Angela Sage [facility] CONSENT/REFUSAL FOR DIAGNOSI S AND TREATMENT 2022-01-11 17:10:16 Doctor Unassigned, Hayes [facility] CONSENT/REFUSAL FOR DIAGNOSI S AND TREATMENT 2022-01-11 17:10:16 Doctor Unassigned, Hayes [facility] EXTERNAL PROVIDER RECORDS 2020-11-26 05:01:00 Doctor Unassigned, Hayes [facility] Encounters Start Date/Time End Date/Time Encounter Type Admission Type Attending [facility] Care Facility Care Department Encounter ID Source 2023-11-27 15:05:01 Outpatient JewelJae [facility] [id number] [place] [facility] 2020-12-13 10:09:54 Emergency [facility] [id number] [facility] 2020-12-11 04:02:45 Emergency [facility] [id number] [facility] 2023-12-05 13:46:14 2023-12-05 13:46:[address] [facility] [id number] Robert Cali 2023-11-27 08:13:37 2023-11-27 08:13:37 Outpatient SFA [facility] [id number] Robert Cali 2023-11-27 00:00:00 2023-11-27 00:00:[address] [facility] [id number] Robert Cali 2023-10-09 00:00:00 2023-11-10 18:22:03 Patient Secure Msg Doctor Unassigned, Hayes 1.2.840.1 [id number] 3.104.2.7 .[id number] .8 [id number] [facility] 2023-11-06 13:51:42 2023-11-06 13:51:[address] [facility] [id number] Robert Cali 2023-10-02 00:00:00 2023-11-03 18:20:51 Patient Secure Msg Doctor Unassigned, Hayes 1.2.840.1 [id number] 3.104.2.7 .3.123390 .8 [id number] [facility] 2023-09-28 00:00:00 2023-10-02 12:14:38 Patient Secure Msg Tavon Dumont 1.2.840.1 [id number] 3.104.2.7 .3.927876 .8 [id number] [facility] 2023-09-03 09:30:00 2023-09-03 11:20:53 Outpatient ALESHA AMBRIZ [facility] [id number] [facility] 2023-09-03 00:00:00 2023-09-03 00:00:00 Travel 1.2.840.1 [id number] 3.104.2.7 .3.551654 .8 1.2.840.114 350.1.13.10 4.2.7.3.698 084.8 [id number] [facility] 2023-08-31 00:00:00 2023-08-31 00:00:00 Travel 1.2.840.1 [id number] 3.104.2.7 .3.523472 .8 1.2.840.114 350.1.13.10 4.2.7.3.698 084.8 [id number] [facility] 2023-08-27 08:00:00 2023-08-27 08:00:00 Outpatient ALESHA AMBRIZ [facility] [id number] [facility] 2023-08-24 00:00:00 2023-08-24 00:00:00 Travel 1.2.840.1 [id number] 3.104.2.7 .3.345456 .8 1.2.840.114 350.1.13.10 4.2.7.3.698 084.8 [id number] [facility] 2023-08-08 00:00:00 2023-08-08 12:08:14 Case Management Elidia Cordero 1.2.840.1 [id number] 3.104.2.7 .3.414728 .8 [id number] [facility] 2023-07-02 00:00:00 2023-08-04 18:20:55 Patient Secure Msg Dominic Keita 1.2.840.1 [id number] 3.104.2.7 .3.819541 .8 [id number] [facility] 2023-08-03 00:00:00 2023-08-03 08:18:24 Telephone Elidia Cordero 1.2.840.1 [id number] 3.104.2.7 .3.875190 .8 [id number] [facility] 2023-07-30 00:00:00 2023-07-30 15:44:55 Telephone Elidia Cordero 1.2.840.1 [id number] 3.104.2.7 .3.549183 .8 [id number] [facility] 2023-07-26 09:30:00 2023-07-26 10:00:00 Office Visit Jose Westbrook Abdullah Azzam 1.2.840.1 [id number] 3.104.2.7 .3.688247 .8 [id number] [facility] 2023-07-26 09:30:00 2023-07-26 09:30:00 Outpatient JOSE TRAN [facility] [id number] [facility] 2023-07-26 00:00:00 2023-07-26 00:00:00 Travel 1.2.840.1 [id number] 3.104.2.7 .3.891812 .8 1.2.840.114 350.1.13.10 4.2.7.3.698 084.8 [id number] [facility] 2023-07-18 10:15:00 2023-07-18 10:15:00 Outpatient [facility] [id number] [facility] 2023-07-16 00:00:00 2023-07-16 00:00:00 Travel 1.2.840.1 72834.1.1 3.104.2.7 .3.337652 .8 1.2.840.114 350.1.13.10 4.2.7.3.698 084.8 [id number] [facility] 2023-07-02 00:00:00 2023-07-02 12:41:14 Telephone Elidia Cordero 1.2.840.1 95921.1.1 3.104.2.7 .3.994762 .8 [id number] [facility] 2023-06-13 00:00:00 2023-06-13 10:19:53 Letter (Out) 1.2.840.1 90755.1.1 3.104.2.7 .3.368162 .8 [id number] [facility] 2023-06-07 21:35:00 2023-06-08 02:20:00 Emergency X MARYSOL PABON HEE-KWANG [facility] ERT [id number] [facility] 2023-06-07 21:35:00 2023-06-08 02:20:00 Emergency Marysol Pabon Whitney T 1.2.840.1 12155.1.1 3.104.2.7 .3.576343 .8 [id number] [facility] 2023-06-07 00:00:00 2023-06-07 00:00:00 Travel 1.2.840.1 75647.1.1 3.104.2.7 .3.784922 .8 1.2.840.114 350.1.13.10 4.2.7.3.698 084.8 [id number] [facility] 2023-05-29 00:00:00 2023-06-04 10:54:35 Patient Secure Msg Dominic Keita 1.2.840.1 49448.1.1 3.104.2.7 .3.561068 .8 [id number] [facility] 2023-05-28 08:45:00 2023-05-28 08:45:00 Outpatient [facility] [id number] [facility] 2023-05-25 00:00:00 2023-05-25 00:00:00 Travel 1.2.840.1 49336.1.1 3.104.2.7 .3.453524 .8 1.2.840.114 350.1.13.10 4.2.7.3.698 084.8 [id number] [facility] 2023-05-22 08:17:37 2023-05-22 08:17:37 Outpatient [facility] [id number] Robert F Viraj 2023-05-11 00:00:00 2023-05-11 17:06:28 Telephone Elidia Cordero 1.2.840.1 58375.1.1 3.104.2.7 .3.429001 .8 [id number] [facility] 2023-05-09 00:00:00 2023-05-09 17:14:57 Patient Secure Msg Doimnic Keita 1.2.840.1 48762.1.1 3.104.2.7 .3.613208 .8 [id number] [facility] 2023-05-08 10:00:00 2023-05-08 10:00:00 Outpatient EMILIA [facility] [id number] [facility] 2023-03-28 00:00:00 2023-04-28 18:05:02 Patient Secure Msg Doctor Unassigned, Hayes 1.2.840.1 63967.1.1 3.104.2.7 .3.518320 .8 [id number] [facility] 2023-04-18 08:00:00 2023-04-18 08:00:00 Outpatient R [facility]NA [facility] [id number] [facility] 2023-04-17 00:00:00 2023-04-17 00:00:00 Travel 1.2.840.1 96106.1.1 3.104.2.7 .3.988410 .8 1.2.840.114 350.1.13.10 4.2.7.3.698 084.8 [id number] [facility] 2023-04-11 13:00:00 2023-04-11 13:00:00 Out[facility] [id number] [facility] 2023-04-11 13:00:00 2023-04-11 13:00:00 [facility]patient [facility] [id number] [facility] 2023-04-04 08:00:00 2023-04-04 08:00:00 [facility] [id number] [facility] 2023-04-02 00:00:00 2023-04-02 00:00:00 Travel 1.2.840.1 31169.1.1 3.104.2.7 .3.310963 .8 1.2.840.114 350.1.13.10 4.2.7.3.698 084.8 [id number] [facility] 2023-03-09 00:00:00 2023-03-09 00:00:00 Telephone Elidia Cordero 1.2.840.1 90395.1.1 3.104.2.7 .3.428492 .8 [id number] [facility] 2023-03-08 00:00:00 2023-03-08 00:00:00 Telephone Elidia Cordero 1.2.840.1 59082.1.1 3.104.2.7 .3.507385 .8 [id number] [facility] 2023-02-28 10:15:00 2023-02-28 10:15:00 Outpatient SARA DELGADILLO [facility] [id number] [facility] 2023-02-27 00:00:00 2023-02-27 00:00:00 Travel 1.2.840.1 58394.1.1 3.104.2.7 .3.075201 .8 1.2.840.114 350.1.13.10 4.2.7.3.698 084.8 [id number] [facility] 2023-02-15 10:30:00 2023-02-15 10:45:00 Disciplinary Hearing Officer Visit Jewel Cunha [facility] 1.2.840.1 67462.1.1 3.104.2.7 .3.494684 .8 [id number] [facility] 2023-02-15 09:30:00 2023-02-15 10:00:00 Office Visit Jewel Cunha Abdullah Azzam 1.2.840.1 62342.1.1 3.104.2.7 .3.137787 .8 [id number] [facility] 2023-02-15 09:30:00 2023-02-15 09:30:00 Outpatient JEWEL [facility] [id number] [facility] 2023-02-15 00:00:00 2023-02-15 00:00:00 Travel 1.2.840.1 66763.1.1 3.104.2.7 .3.560533 .8 1.2.840.114 350.1.13.10 4.2.7.3.698 084.8 [id number] [facility] 2023-01-23 13:00:00 2023-01-23 13:00:00 Outpatient R ARRIAGA JENNYJENNY [facility] [id number] [facility] 2023-01-22 10:15:00 2023-01-22 10:30:00 Disciplinary Hearing Officer Visit Dexter Dias [facility] 1.2.840.1 87071.1.1 3.104.2.7 .3.955477 .8 [id number] [facility] 2023-01-22 09:30:00 2023-01-22 10:07:50 Outpatient R DEXTER [facility] [id number] [facility] 2023-01-22 00:00:00 2023-01-22 00:00:00 Orders Only Doctor Unassigned, Hayes 1.2.840.1 40913.1.1 3.104.2.7 .3.505402 .8 [id number] [facility] 2023-01-22 00:00:00 2023-01-22 00:00:00 Travel 1.2.840.1 10361.1.1 3.104.2.7 .3.162067 .8 1.2.840.114 350.1.13.10 4.2.7.3.698 084.8 [id number] [facility] 2023-01-15 00:00:00 2023-01-15 00:00:00 Telephone Elidia Cordero 1.2.840.1 53697.1.1 3.104.2.7 .3.808584 .8 [id number] [facility] 2023-01-12 00:00:00 2023-01-12 00:00:00 Patient Secure Msg Dominic Keita 1.2.840.1 46009.1.1 3.104.2.7 .3.451315 .8 [id number] [facility] 2022-12-29 09:30:00 2022-12-29 09:30:00 Outpatient R [facility]ENNY [facility]RI[facility]A [facility] [id number] [facility] 2022-12-29 00:00:00 2022-12-29 00:00:00 Telephone Elidia Cordero 1.2.840.1 30661.1.1 3.104.2.7 .3.313944 .8 [id number] [facility] 2022-12-29 00:00:00 2022-12-29 00:00:00 Telephone Elidia Cordero 1.2.840.1 46713.1.1 3.104.2.7 .3.931904 .8 [id number] [facility] 2022-12-28 00:00:00 2022-12-28 00:00:00 Case Management Elidia Cordero 1.2.840.1 79208.1.1 3.104.2.7 .3.719520 .8 [id number] [facility] 2022-12-20 16:00:00 2022-12-20 16:46:31 Outpatient [facility] [id number] [facility] 2022-12-20 09:49:08 2022-12-20 09:49:08 Outpatient [facility] [id number] Robert Cali 2022-12-19 00:00:00 2022-12-19 00:00:00 Travel 1.2.840.1 52626.1.1 3.104.2.7 .3.463104 .8 1.2.840.114 350.1.13.10 4.2.7.3.698 084.8 [id number] [facility] 2022-12-18 09:30:00 2022-12-18 09:30:00 Outpatient [facility] [id number] [facility] 2022-12-18 00:00:00 2022-12-18 00:00:00 Telephone Elidia Cordero 1.2.840.1 94215.1.1 3.104.2.7 .3.162980 .8 [id number] [facility] 2022-12-14 00:00:00 2022-12-14 00:00:00 Patient Secure Msg Doctor Unassigned, Hayes 1..840.1 53655.1.1 3.104.2.7 .3.492973 .8 [id number] [facility] 2022-12-11 08:45:00 2022-12-11 08:45:00 Outpatient [facility] [id number] [facility] 2022-12-10 00:00:00 2022-12-10 00:00:00 Outpatient GC_GCBZW_Ka diyala_S PRIV [facility] [id number] [facility] 2022-12-08 15:30:00 2022-12-08 15:30:00 Outpatient R JENNY ARRIAGA [facility] [id number] [facility] 2022-12-06 08:00:00 2022-12-06 08:00:00 Outpatient R ONEIDA [facility] [id number] [facility] 2022-11-29 00:00:00 2022-11-29 00:00:00 Telephone Sharona Corderokarl Gamble 1..840.1 75882.1.1 3.104.2.7 .3.033558 .8 [id number] [facility] 2022-11-27 00:00:00 2022-11-27 00:00:00 Telephone Consuelo Elidia Gamble 1.2.840.1 54926.1.1 3.104.2.7 .3.711415 .8 [id number] [facility] 2022-11-27 00:00:00 2022-11-27 00:00:00 Telephone Elidia Cordero 1.2.840.1 77790.1.1 3.104.2.7 .3.218541 .8 [id number] [facility] 2022-11-23 00:00:00 2022-11-23 00:00:00 Telephone Elidia Cordero 1.2.840.1 53457.1.1 3.104.2.7 .3.097221 .8 [id number] [facility] 2022-11-23 00:00:00 2022-11-23 00:00:00 Telephone Elidia Cordero 1.2.840.1 49617.1.1 3.104.2.7 .3.583896 .8 [id number] [facility] 2022-11-22 09:30:00 2022-11-22 09:30:00 Outpatient [facility] [id number] [facility] 2022-11-16 00:00:00 2022-11-16 00:00:00 Telephone Elidia Cordero 1.2.840.1 94040.1.1 3.104.2.7 .3.633177 .8 [id number] [facility] 2022-11-16 00:00:00 2022-11-16 00:00:00 Patient Secure Msg Dominic Keita 1.2.840.1 51750.1.1 3.104.2.7 .3.510921 .8 [id number] [facility] 2022-11-13 06:59:00 2022-11-13 09:48:00 Outpatient DOMINIC LEBRON [facility] BRY [id number] [facility] 2022-11-13 06:59:00 2022-11-13 09:48:00 Hospital Encounter Dominic Keita 1.2.840.1 65684.1.1 3.104.2.7 .3.001653 .8 [id number] [facility] 2022-11-13 07:58:00 2022-11-13 08:33:00 Anesthesia Event Hunter Cruz Joan 1.2.840.1 61473.1.1 3.104.2.7 .3.103928 .8 [id number] [facility] 2022-11-13 07:15:00 2022-11-13 08:15:00 Surgery Dominic Keita 1.2.840.1 12353.1.1 3.104.2.7 .3.872328 .8 [id number] [facility] 2022-11-13 00:00:00 2022-11-13 00:00:00 Orders Only Doctor Unassigned, Hayes 1.2.840.1 43344.1.1 3.104.2.7 .3.341759 .8 [id number] [facility] 2022-11-13 00:00:00 2022-11-13 00:00:00 Telephone Dominic Keita 1.2.840.1 83596.1.1 3.104.2.7 .3.141879 .8 [id number] [facility] 2022-11-13 00:00:00 2022-11-13 00:00:00 Travel 1.2.840.1 79851.1.1 3.104.2.7 .3.325191 .8 1.2.840.114 350.1.13.10 4.2.7.3.698 084.8 [id number] [facility] 2022-11-10 00:00:00 2022-11-10 00:00:00 Outpatient R [facility]OLOGY [facility] [id number] [facility] 2022-11-10 00:00:00 2022-11-10 00:00:00 Patient Secure Msg Dominic Keita 1.2.840.1 69509.1.1 3.104.2.7 .3.403520 .8 [id number] [facility] 2022-11-09 00:00:00 2022-11-09 00:00:00 Patient Secure Msg Doctor Unassigned, Hayes 1.2.840.1 86444.1.1 3.104.2.7 .3.080809 .8 [id number] [facility] 2022-11-07 00:00:00 2022-11-07 00:00:00 Patient Secure Msg Doctor Unassigned, Hayes 1.2.840.1 98695.1.1 3.104.2.7 .3.749096 .8 [id number] [facility] 2022-11-03 10:36:00 2022-11-03 13:16:00 Emergency X DORA NEWMAN [facility] ERT [id number] [facility] 2022-11-03 10:36:00 2022-11-03 13:16:00 Emergency Fitzjayden Dora G 1.2.840.1 63045.1.1 3.104.2.7 .3.402649 .8 [id number] [facility] 2022-11-03 00:00:00 2022-11-03 00:00:00 Travel 1.2.840.1 36017.1.1 3.104.2.7 .3.480168 .8 1.2.840.114 350.1.13.10 4.2.7.3.698 084.8 [id number] [facility] 2022-10-30 00:00:00 2022-10-30 00:00:00 Case Management Elidia Cordero 1.2.840.1 64207.1.1 3.104.2.7 .3.553672 .8 [id number] [facility] 2022-10-19 08:30:00 2022-10-19 08:45:00 Disciplinary Hearing Officer Visit Jewel Cunha [facility] 1.2.840.1 28389.1.1 3.104.2.7 .3.629711 .8 [id number] [facility] 2022-10-19 07:30:00 2022-10-19 08:15:30 Outpatient R JEWEL CUNHA [facility] [id number] [facility] 2022-10-19 07:30:00 2022-10-19 08:15:30 [facility] 21741.1.1 3.104.2.7 .3.432898 .8 [id number] [facility] 2022-10-19 00:00:00 2022-10-19 00:00:00 Orders Only Doctor Unassigned, Hayes 1.2.840.1 04157.1.1 3.104.2.7 .3.112728 .8 [id number] [facility] 2022-10-18 00:00:00 2022-10-18 00:00:00 Travel 1.2.840.1 05303.1.1 3.104.2.7 .3.476486 .8 1.2.840.114 350.1.13.10 4.2.7.3.698 084.8 [id number] [facility] 2022-10-12 09:56:06 2022-10-12 09:56:06 Outpatient [facility] [id number] Robert F Viraj 2022-10-12 00:00:00 2022-10-12 00:00:00 Orders Only Doctor Unassigned, Hayes 1.2.840.1 45941.1.1 3.104.2.7 .3.015848 .8 [id number] [facility] 2022-10-05 10:15:00 2022-10-05 10:30:00 Disciplinary Hearing Officer Visit Salvatore Vences, [facility] Main 1.2.840.1 82217.1.1 3.104.2.7 .3.416102 .8 [id number] [facility] 2022-10-05 10:15:00 2022-10-05 10:15:00 Outpatient SALVATORE [facility] [id number] [facility] 2022-10-04 09:30:00 2022-10-04 10:30:11 Outpatient R DEXTER DIAS [facility] [id number] [facility] 2022-10-04 00:00:00 2022-10-04 00:00:00 Orders Only Doctor Unassigned, Hayes 1.2.840.1 16234.1.1 3.104.2.7 .3.508064 .8 [id number] [facility] 2022-10-04 00:00:00 2022-10-04 00:00:00 Travel 1.2.840.1 62310.1.1 3.104.2.7 .3.732620 .8 1.2.840.114 350.1.13.10 4.2.7.3.698 084.8 [id number] [facility] 2022-10-02 00:00:00 2022-10-02 00:00:00 Travel 1.2.840.1 26385.1.1 3.104.2.7 .3.415188 .8 1.2.840.114 350.1.13.10 4.2.7.3.698 084.8 [id number] [facility] 2022-09-06 08:45:00 2022-09-06 08:45:00 Outpatient R SARA HESTER [facility] [id number] [facility] 2022-09-06 00:00:00 2022-09-06 00:00:00 Travel 1.2.840.1 45363.1.1 3.104.2.7 .3.856215 .8 1.2.840.114 350.1.13.10 4.2.7.3.698 084.8 [id number] [facility] 2022-07-26 11:00:00 2022-07-26 11:15:00 Disciplinary Hearing Officer Visit Pathology [facility]-Lab 1.2.840.1 69568.1.1 3.104.2.7 .3.464286 .8 [id number] [facility] 2022-07-26 08:45:00 2022-07-26 09:37:46 Outpatient SARA DELGADILLO [facility] [id number] [facility] 2022-07-26 00:00:00 2022-07-26 00:00:00 Orders Only Doctor Unassigned, Hayes 1.2.840.1 37210.1.1 3.104.2.7 .3.841647 .8 [id number] [facility] 2022-07-26 00:00:00 2022-07-26 00:00:00 Travel 1.2.840.1 68553.1.1 3.104.2.7 .3.883197 .8 1.2.840.114 350.1.13.10 4.2.7.3.698 084.8 [id number] [facility] 2022-07-24 13:24:12 2022-07-24 13:24:12 Outpatient SFA [facility] [id number] Robert F Viraj 2022-06-27 13:49:18 2022-06-27 13:49:18 Outpatient SFA [facility] [id number] Robert Ambrose Viraj 2022-06-21 08:52:50 2022-06-21 08:52:50 Outpatient SFA [facility] [id number] Robert Cali 2022-06-15 15:23:34 2022-06-15 15:23:34 Outpatient [facility] [id number] Robert Cali 2022-05-31 08:45:00 2022-05-31 08:45:00 Outpatient SARA DELGADILLO [facility] [id number] [facility] 2022-05-30 11:55:27 2022-05-30 11:55:27 Outpatient [facility] [id number] Robert Cali 2022-05-23 11:17:29 2022-05-23 11:17:29 Outpatient [facility] [id number] Robert Ambrose Viraj 2022-05-12 08:06:11 2022-05-12 08:06:11 Outpatient [facility] [id number] Robert Cali 2022-05-11 13:45:44 2022-05-11 13:45:44 Outpatient [facility] [id number] Robert Cali 2022-04-08 00:00:00 2022-04-08 00:00:00 Orders Only Doctor Unassigned, Hayes 1.2.840.1 84056.1.1 3.104.2.7 .3.581318 .8 [id number] [facility] 2022-02-21 00:00:00 2022-02-21 00:00:00 Orders Only Doctor Unassigned, Hayes 1.2.840.1 41593.1.1 3.104.2.7 .3.484344 .8 [id number] [facility] 2022-02-15 13:30:00 2022-02-15 13:45:00 Disciplinary Hearing Officer Visit Pathology Pcp-Lab 1.2.840.1 42370.1.1 3.104.2.7 .3.257911 .8 [id number] [facility] 2022-02-15 08:45:00 2022-02-15 10:52:26 Outpatient [facility] [id number] [facility] 2022-02-15 00:00:00 2022-02-15 00:00:00 Travel 1.2.840.1 00351.1.1 3.104.2.7 .3.565646 .8 1.2.840.114 350.1.13.10 4.2.7.3.698 084.8 [id number] [facility] 2022-01-11 11:00:00 2022-01-11 12:39:46 Outpatient SARA DELGADILLO [facility] [id number] [facility] 2022-01-11 00:00:00 2022-01-11 00:00:00 Orders Only Doctor Unassigned, Hayes 1.2.840.1 31290.1.1 3.104.2.7 .3.772240 .8 [id number] [facility] 2022-01-11 00:00:00 2022-01-11 00:00:00 Travel 1.2.840.1 04175.1.1 3.104.2.7 .3.757125 .8 1.2.840.114 350.1.13.10 4.2.7.3.698 084.8 [id number] [facility] 2021-11-24 09:30:00 2021-11-24 09:30:00 Outpatient IGOR Castaneda [facility] [id number] [facility] 2021-11-16 11:00:00 2021-11-16 11:00:00 Outpatient SARA DELGADILLO [facility] [id number] [facility] 2021-10-26 08:00:00 2021-10-26 08:00:00 Outpatient DEXTER [facility] [id number] [facility] 2021-10-20 10:00:00 2021-10-20 10:00:00 Outpatient IGOR Castaneda [facility] [id number] [facility] 2021-10-03 14:30:00 2021-10-03 14:30:00 Outpatient R DAVIDSON [facility] [id number] [facility] 2021-09-21 09:30:00 2021-09-21 09:30:00 Outpatient R DEXTER DIAS [facility] [id number] [facility] 2021-08-24 09:30:00 2021-08-24 10:41:[address] [facility] [id number] [facility] 2021-08-24 00:00:00 2021-08-24 00:00:00 Travel 1.2.840.1 79300.1.1 3.104.2.7 .3.482530 .8 1.2.840.114 350.1.13.10 4.2.7.3.698 084.8 [id number] [facility] 2021-07-25 09:00:00 2021-07-25 09:00:00 Outpatient R DEXTER [facility] [id number] [facility] 2021-06-22 11:15:00 2021-06-22 12:18:05 Outpatient R SARA HESTER [facility] [id number] [facility] 2021-06-22 11:15:00 2021-06-22 11:15:00 [facility] [id number] [facility] 2021-06-22 00:00:00 2021-06-22 00:00:00 Travel 1.2.840.1 93768.1.1 3.104.2.7 .3.559060 .8 1.2.840.114 350.1.13.10 4.2.7.3.698 084.8 [id number] [facility] 2021-06-20 11:15:00 2021-06-20 11:15:[address] [facility] [id number] [facility] 2021-06-20 11:15:00 2021-06-20 11:15:00 Outpatient R DEXTER DIAS [facility] [id number] [facility] 2021-06-08 09:20:00 2021-06-08 09:20:00 Outpatient [facility] [id number] [facility] 2021-06-08 00:00:00 2021-06-08 00:00:00 Patient Secure Igor Saavedra [facility] 1.2.840.114 350.1.13.10 4.2.7.2.686 [id number] [facility] 2021-06-07 09:13:00 2021-06-07 10:50:00 Emergency X STEWART MONROYIP [facility] ERT [id number] [facility] 2021-06-07 09:13:00 2021-06-07 10:50:00 Emergency Gigi Monroy [facility] 1.2.840.114 350.1.13.10 4.2.7.2.686 [id number] [facility] 2021-06-07 09:13:00 2021-06-07 10:50:00 Emergency Gigi Monroy 1.2.840.1 19509.1.1 3.104.2.7 .3.790125 .8 [id number] [facility] 2021-06-07 00:00:00 2021-06-07 00:00:00 Outpatient Tonya GUTIERREZI [facility] [id number] [facility] 2021-06-07 00:00:00 2021-06-07 00:00:00 Orders Only Doctor Unassigned, [place] [facility] 1.2.840.114 350.1.13.10 4.2.7.2.686 [id number] [facility] 2021-06-07 00:00:00 2021-06-07 00:00:00 Travel 1.2.840.1 90422.1.1 3.104.2.7 .3.838075 .8 1.2.840.114 350.1.13.10 4.2.7.3.698 084.8 [id number] [facility] 2021-06-07 00:00:00 2021-06-07 00:00:00 Orders Only Doctor Unassigned, [place] 1.2.840.1 62199.1.1 3.104.2.7 .3.158131 .8 [id number] [facility] 2021-06-03 00:00:00 2021-06-03 00:00:00 Travel 1.2.840.1 63894.1.1 3.104.2.7 .3.212235 .8 1.2.840.114 350.1.13.10 4.2.7.3.698 084.8 [id number] [facility] 2021-05-27 00:00:00 2021-05-27 00:00:00 [facility] [id number] [facility] 2021-05-27 00:00:00 2021-05-27 00:00:00 Outpatient IGOR Castaneda [facility] [id number] [facility] 2021-05-25 00:00:00 2021-05-25 00:00:00 Patient Secure Msg Doctor Unassigned, [place] [facility] 1.2.840.114 350.1.13.10 4.2.7.2.686 [id number] [facility] 2021-05-25 00:00:00 2021-05-25 00:00:00 Patient Secure Msg Doctor Unassigned, [place] 1.2.840.1 73895.1.1 3.104.2.7 .3.582570 .8 [id number] [facility] 2021-05-20 00:00:00 2021-05-20 00:00:00 Telephone Zane Martinez 1.2.840.1 02654.1.1 3.104.2.7 .3.114176 .8 [id number] [facility] 2021-05-20 00:00:00 2021-05-20 00:00:00 Telephone Zane Martinez 1.2.840.1 59849.1.1 3.104.2.7 .3.981528 .8 [id number] [facility] 2021-05-18 00:00:00 2021-05-18 00:00:00 Travel 1.2.840.1 05228.1.1 3.104.2.7 .3.874804 .8 1.2.840.114 350.1.13.10 4.2.7.3.698 084.8 [id number] [facility] 2021-05-18 00:00:00 2021-05-18 00:00:00 Travel 1.2.840.1 49387.1.1 3.104.2.7 .3.453620 .8 1.2.840.114 350.1.13.10 4.2.7.3.698 084.8 [id number] [facility] 2021-05-17 13:15:00 2021-05-17 13:30:00 Disciplinary Hearing Officer Visit Pcp-Lab Igor Saavedra [facility] 1.2.840.114 350.1.13.10 4.2.7.2.686 [id number] [facility] 2021-05-17 13:15:00 2021-05-17 13:30:00 Disciplinary Hearing Officer Visit Igor Saavedra [facility] 1.2.840.1 18254.1.1 3.104.2.7 .3.439702 .8 [id number] [facility] 2021-05-17 13:15:00 2021-05-17 13:30:00 Disciplinary Hearing Officer Visit Igor Saavedra [facility] 1.2.840.1 11592.1.1 3.104.2.7 .3.853394 .8 [id number] [facility] 2021-05-17 09:00:00 2021-05-17 10:25:05 [facility] [id number] [facility] 2021-05-17 09:00:00 2021-05-17 10:25:05 Office Visit Igor Saavedra Neeharika 1.2.840.1 99728.1.1 3.104.2.7 .3.181852 .8 [id number] [facility] 2021-05-17 09:00:00 2021-05-17 10:25:05 Outpatient [facility] [id number] [facility] 2021-05-17 09:30:00 2021-05-17 09:30:00 Outpatient [facility] [id number] [facility] 2021-05-17 00:00:00 2021-05-17 00:00:00 Travel 1.2.840.1 90111.1.1 3.104.2.7 .3.536520 .8 1.2.840.114 350.1.13.10 4.2.7.3.698 084.8 [id number] [facility] 2021-05-17 00:00:00 2021-05-17 00:00:00 Travel 1.2.840.1 65633.1.1 3.104.2.7 .3.848266 .8 1.2.840.114 350.1.13.10 4.2.7.3.698 084.8 [id number] [facility] 2021-04-26 09:00:00 2021-04-26 09:00:00 [facility] [id number] [facility] 2021-04-26 09:00:00 2021-04-26 09:00:00 Outpatient R [facility] [id number] [facility] 2021-04-20 08:45:00 2021-04-20 08:45:00 Outpatient R SARA [facility] [id number] [facility] 2021-04-11 08:40:00 2021-04-11 08:40:00 Outpatient SALLY FIGUEROA [facility] [id number] [facility] 2021-04-11 08:40:00 2021-04-11 08:40:00 Outpatient SALLY FIGUEROA [facility] [id number] [facility] 2021-03-21 08:00:00 2021-03-21 08:00:00 Outpatient SALLY FIGUEROA [facility] [id number] [facility] 2021-03-17 00:00:00 2021-03-17 00:00:00 Patient Secure Msg Doctor Unassigned, [facility] 1.2.840.114 350.1.13.10 4.2.7.2.686 [id number] [facility] 2021-03-17 00:00:00 2021-03-17 00:00:00 Patient Secure Msg Doctor Unassigned, Hayes ..840.1 56617.1.1 3.104.2.7 .3.480019 .8 [id number] [facility] 2021-03-17 00:00:00 2021-03-17 00:00:00 Patient Secure Msg Doctor Unassigned, Hayes 1..840.1 64156.1.1 3.104.2.7 .3.865232 .8 [id number] [facility] 2021-03-16 13:15:00 2021-03-16 13:30:00 Disciplinary Hearing Officer Visit Salbador [facility] 1.2.840.1 18554.1.1 3.104.2.7 .3.422395 .8 [id number] [facility] 2021-03-16 13:15:00 2021-03-16 13:30:00 Disciplinary Hearing Officer Visit Salbador [facility] 1.2.840.1 19130.1.1 3.104.2.7 .3.825565 .8 [id number] [facility] 2021-03-16 13:15:00 2021-03-16 13:15:00 Outpatient [facility] [id number] [facility] 2021-03-16 12:00:00 2021-03-16 12:09:51 Outpatient SARA DELGADILLO [facility] [id number] [facility] 2021-03-16 12:00:00 2021-03-16 12:09:51 Outpatient SARA DELGADILLO [facility] [id number] [facility] 2021-03-16 12:00:00 2021-03-16 12:00:00 Outpatient SARA DELGADILLO [facility] [id number] [facility] 2021-03-16 00:00:00 2021-03-16 00:00:00 Travel 1.2.840.1 47066.1.1 3.104.2.7 .3.073600 .8 1.2.840.114 350.1.13.10 4.2.7.3.698 084.8 [id number] [facility] 2021-03-16 00:00:00 2021-03-16 00:00:00 Travel 1.2.840.1 96108.1.1 3.104.2.7 .3.274130 .8 1.2.840.114 350.1.13.10 4.2.7.3.698 084.8 [id number] [facility] 2021-03-11 09:44:00 2021-03-11 13:06:00 Emergency X PAULINA CONNORRA [facility] ERT [id number] [facility] 2021-03-11 09:44:00 2021-03-11 13:06:00 Emergency Paulina Connorra Cates 1.2.840.1 26413.1.1 3.104.2.7 .3.137798 .8 [id number] [facility] 2021-03-11 09:44:00 2021-03-11 13:06:00 Emergency X PAULINA CON[facility]RA [facility] ERT [id number] [facility] 2021-03-11 09:44:00 2021-03-11 13:06:00 Emergency Dragan Halima Cates 1.2.840.1 08774.1.1 3.104.2.7 .3.164189 .8 [id number] [facility] 2021-03-11 09:44:00 2021-03-11 13:06:00 Emergency X PAULINA CONNORRA [facility] ERT [id number] [facility] 2021-03-11 09:44:00 2021-03-11 09:44:00 Emergency X PAULINA CONNORRA [facility] ERT [id number] [facility] 2021-03-11 00:00:00 2021-03-11 00:00:00 Travel 1.2.840.1 33394.1.1 3.104.2.7 .3.278928 .8 1.2.840.114 350.1.13.10 4.2.7.3.698 084.8 [id number] [facility] 2021-03-11 00:00:00 2021-03-11 00:00:00 Travel 1.2.840.1 75086.1.1 3.104.2.7 .3.720768 .8 1.2.840.114 350.1.13.10 4.2.7.3.698 084.8 [id number] [facility] 2021-03-08 15:00:00 2021-03-08 15:15:00 Disciplinary Hearing Officer Visit Salbador [facility] 1.2.840.1 45400.1.1 3.104.2.7 .3.891230 .8 [id number] [facility] 2021-03-08 15:00:00 2021-03-08 15:15:00 Disciplinary Hearing Officer Visit Salbador [facility] 1.2.840.1 48081.1.1 3.104.2.7 .3.787250 .8 [id number] [facility] 2021-03-08 15:00:00 2021-03-08 15:00:00 Outpatient R [facility] [id number] [facility] 2021-01-31 10:15:00 2021-01-31 10:55:[address] [facility] [id number] [facility] 2020-12-29 08:00:00 2020-12-29 08:41:[address] [facility] [id number] [facility] 2020-12-29 08:00:00 2020-12-29 08:41:[address] [facility] [id number] [facility] 2020-12-29 00:00:00 2020-12-29 00:00:00 Travel 1.2.840.1 01681.1.1 3.104.2.7 .3.451338 .8 1.2.840.114 350.1.13.10 4.2.7.3.698 084.8 [id number] [facility] 2020-12-29 00:00:00 2020-12-29 00:00:00 Travel 1.2.840.1 47137.1.1 3.104.2.7 .3.844367 .8 1.2.840.114 350.1.13.10 4.2.7.3.698 084.8 [id number] [facility] 2020-12-22 09:30:00 2020-12-22 09:30:[address] [facility] [id number] [facility] 2020-12-22 09:30:00 2020-12-22 09:30:[address] [facility] [id number] [facility] 2020-11-26 00:00:00 2020-11-26 00:00:00 Orders Only Doctor Unassigned, Hayes [facility] 1.2.840.114 350.1.13.10 4.2.7.2.686 [id number] [facility] 2020-11-10 09:30:00 2020-11-10 09:30:00 Outpatient R [facility] [id number] [facility] 2020-11-10 00:00:00 2020-11-10 00:00:00 Orders Only Doctor Unassigned, Hayes 1.2.840.1 48344.1.1 3.104.2.7 .3.355780 .8 [id number] [facility] 2020-11-10 00:00:00 2020-11-10 00:00:00 Travel 1.2.840.1 23778.1.1 3.104.2.7 .3.242578 .8 1.2.840.114 350.1.13.10 4.2.7.3.698 084.8 [id number] [facility] 2020-10-11 08:00:00 2020-10-11 08:00:[address] [facility] [id number] [facility] 2020-10-11 00:00:00 2020-10-11 00:00:00 Travel 1.2.840.1 43164.1.1 3.104.2.7 .3.653464 .8 1.2.840.114 350.1.13.10 4.2.7.3.698 084.8 [id number] [facility] 2020-09-13 08:00:00 2020-09-13 08:00:00 Outpatient R DEXTER [facility] [id number] [facility] 2020-09-13 00:00:00 2020-09-13 00:00:00 Travel 1.2.840.1 78053.1.1 3.104.2.7 .3.570563 .8 1.2.840.114 350.1.13.10 4.2.7.3.698 084.8 [id number] [facility] 2020-09-02 16:12:00 2020-09-02 20:21:00 Emergency Patti Rose [facility] 1.2.840.114 350.1.13.10 4.2.7.2.686 [id number] 2020-09-02 16:12:00 2020-09-02 20:21:00 Emergency Patti Rose 1.2.840.1 76870.1.1 3.104.2.7 .3.739866 .8 [id number] [facility] 2020-09-02 00:00:00 2020-09-02 00:00:00 Travel 1.2.840.1 01182.1.1 3.104.2.7 .3.330759 .8 1.2.840.114 350.1.13.10 4.2.7.3.698 084.8 [id number] [facility] 2020-09-02 00:00:00 2020-09-02 00:00:00 Orders Only Doctor Unassigned, Hayes 1.2.840.1 45753.1.1 3.104.2.7 .3.288293 .8 [id number] [facility] 2020-09-02 00:00:00 2020-09-02 00:00:00 Orders Only Doctor Unassigned, Hayes [facility] 1.2.840.114 350.1.13.10 4.2.7.2.686 [id number] 2020-08-25 09:15:00 2020-08-25 09:15:00 [facility] [id number] [facility] 2020-08-09 08:45:00 2020-08-09 08:45:00 Outpatient R [facility] [id number] [facility] 2020-06-28 13:45:00 2020-06-28 13:45:00 Outpatient R [facility] [id number] [facility] 2020-06-21 15:15:00 2020-06-21 15:15:00 Outpatient R DEXTER [facility] [id number] [facility] 2020-06-07 08:45:00 2020-06-07 08:45:00 [facility] [id number] [facility] 2020-05-25 08:30:00 2020-05-25 08:30:00 Outpatient [facility] [id number] [facility] 2020-03-15 13:00:00 2020-03-15 13:00:00 Outpatient R [facility] [id number] [facility] 2020-03-08 13:00:00 2020-03-08 13:00:00 [facility] [id number] [facility] 2020-02-16 11:00:00 2020-02-16 11:00:00 [facility] [id number] [facility] 2020-01-27 11:45:00 2020-01-27 11:45:00 Out[facility] [id number] [facility] 2020-01-19 08:00:00 2020-01-19 08:00:00 Outpatient [facility] [id number] [facility] 2019-12-22 08:45:00 2019-12-22 08:45:00 Outpatient DEXTER [facility] [id number] [facility] 2019-12-05 10:45:00 2019-12-05 10:45:00 Outpatient JEWEL [facility] [id number] [facility] 2019-10-23 09:15:00 2019-10-23 09:15:00 Outpatient R SALVATORE [facility]GADO [facility] [id number] [facility] 2019-10-15 11:30:00 2019-10-15 11:30:00 Outpatient ROBERT [facility] [id number] [facility] 2019-10-01 14:30:00 2019-10-01 14:30:00 Outpatient ROBERT [facility]ILLO [facility] [id number] [facility] 2019-09-01 08:45:00 2019-09-01 08:45:00 Outpatient DEXTER MIRELES [facility] [id number] [facility] 2019-08-06 13:00:00 2019-08-06 13:00:00 Outpatient ANGELA [facility] [id number] [facility] Results Test Description Test Time Test Comments Results Result Co mments Source VITAMIN B 12 AND FOLIC [id number] 05:31:25* Test Item Value Reference Range Interpretation Comme nts VITAMIN B-12 (test code = 2840) 380 PG/ML 200-950 FOLIC ACID (test code = 2695) 7.0 UG/L SEE BELOW INTERPRETI VE RANGES DEFICIENCY . . . . . . . . . . . . . . . UG/L <4.0 POSSIBLE DEFICIENCY. . . . . . . . . . . UG/L 4.0-5.9 SUFFICIENT . . . . . . . . . . . . . . . UG/L >=6.0 COMPREHENSIVE METABOLIC [id number] 04:03:47* Test Item Value Reference Range Interpretation Comme nts GLUCOSE (test code = 2216) 95 MG/DL 70-99 BUN (test code = 2207) 13 MG/DL 6-20 CREATININE (test code = 2213) 0.65 MG/DL 0.60-1.30 eGFR (2020 CKD-EPI) (test code = ) 110 ML/MIN/1.73 >60 CALC BUN/CREAT (test code = 2234) 20 RATIO 6-28 SODIUM (test code = 2230) 139 MEQ/L 133-146 POTASSIUM (test code = 2227) 4.6 MEQ/L 3.5-5.4 CHLORIDE (test code = 2214) 103 MEQ/L 95-107 CARBON DIOXIDE (test code = 2205) 25 MEQ/L 19-31 CALCIUM (test code = 2208) 10.1 MG/DL 8.5-10.5 PROTEIN, TOTAL (test code = 2228) 6.7 G/DL 6.1-8.3 ALBUMIN (test code = 2200) 4.5 G/DL 3.5-5.2 CALC GLOBULIN (test code = 2240) 2.2 G/DL 1.9-3.7 CALC A/G RATIO (test code = 2233) 2.0 RATIO 1.0-2.6 BILIRUBIN, TOTAL (test code = 2206) <0.2 MG/DL <=1.2 ALKALINE PHOSPHATASE (test code = 2203) 144 U/L 40-118 H AST (test code = 2217) 16 U/L 9-40 ALT (test code = 2219) 16 U/L 5-40 UNLESS OTHERWISE INDICATED, ALL TESTING PERFORMED AT [facility] [address] [place] [id number] [employer]NAG[employer] SPECIALIST: CHARLA HERNANDEZ M.D. CLIA NUMBER [id number] [facility] [place]. [id number] CBC W/AUTO DIFF WITH [id number] 03:00:25* Test Item Value Reference Range Interpretation Comme nts WBC (test code = 1001) 8.1 K/UL 3.5-11.0 RBC (test code = 1002) 4.41 M/UL 3.80-5.40 HEMOGLOBIN (test code = 1003) 9.4 G/DL 11.5-15.5 L HEMATOCRIT (test code = 1004) 32.1 % 34.0-45.0 L MCV (test code = 1005) 72.8 fL 80.0-99.0 L MCH (test code = 1006) 21.3 PG 25.0-33.0 L MCHC (test code = 1007) 29.3 G/DL 31.0-36.0 L RDW (test code = 1038) 17.6 % 11.5-15.0 H NEUTROPHILS (test code = 1008) 70.4 % LYMPHOCYTES (test code = 1010) 18.5 % MONOCYTES (test code = 1011) 6.4 % EOSINOPHILS (test code = 1012) 3.5 % BASOPHILS (test code = 1013) 0.7 % IMMATURE GRANULOCYTES (test code = 1036) 0.5 % NUCLEATED RBCS (test code = 1065) 0.0 /100 WBC'S See_Comment [Automated Userstorylaba ge] The system which generated this result transmitted reference range: 0.0. The reference range was not used to interpret this result as normal/abnormal. PLATELET COUNT (test code = 1015) 288 K/UL 130-400 ABSOLUTE NEUTROPHILS (test code = 1066) 5.68 K/UL 1.50-7.50 ABSOLUTE LYMPHOCYTES (test code = 1067) 1.49 K/UL 1.00-4.00 ABSOLUTE MONOCYTES (test code = 1068) 0.52 K/UL 0.20-1.00 ABSOLUTE EOSINOPHILS (test code = 1040) 0.28 K/UL 0.00-0.50 ABSOLUTE BASOPHILS (test code = 1069) 0.06 K/UL 0.00-0.20 ABS IMMATURE GRANULOCYTES (test code = 1020) 0.04 K/UL 0.00-0.10 ABS NUCLEATED RBCS (test code = 00495) 0.00 K/UL 0.00-0.11 HAPTOGLOBIN, [id number] 13:13:35* Test Item Value Reference Range Interpretation Comme nts HAPTOGLOBIN, QUANT (test cod e = 11160) 227 MG/DL 32-197 H [id number] 05:29:31* Test Item Value Reference Range Interpretation Comme nts LDH (test code = 2224) 186 U/L 135-214 [id number] 05:29:31* Test Item Value Reference Range Interpretation Comme nts TRANSFERRIN (test code = 4936) 380 MG/DL 200-360 H [id number] 04:14:38* Test Item Value Reference Range Interpretation Comme nts FERRITIN (test code = 2075) 6 NG/ML 13-200 L VITAMIN D, 25 [id number] 04:14:10* Test Item Value Reference Range Interpretation Comme nts VITAMIN D, 25 OH (test code = 4958) 18 NG/ML SEE BELOW L NOTE: 25-HYDR OXYVITAMIN D ASSAY INCLUDES 25-HYDROXYVITAMIN D2 AND D3. [...] . . . . . NG/ML 30-100 IRON BINDING CAPACITY AND IRON AND % [id number] 04:13:51* Test Item Value Reference Range Interpretation Comme nts IRON, SERUM (test code = 2222) 25 UG/DL 37-145 L UNSATURATED IBC (test code = 83285) 425 UG/DL 112-347 H CALC TOTAL IBC (test code = 2077) 450 UG/DL 250-450 CALC % IRON SAT (test code = 2079) 6 % 20-50 L URIC [id number] 04:13:51* Test Item Value Reference Range Interpretation Comme nts URIC ACID (test code = 2233) 5.8 MG/DL 2.7-6.1 UNLESS OTHERWISE INDICATED, ALL TESTING PERFORMED AT [facility] [address] [place] [address] [employer] SPECIALIST: CHARLA HERNANDEZ M.D. CLIA NUMBER [id number] [facility] [place]. [id number] LIPID [id number] 04:13:51* Test Item Value Reference Range Interpretation Comme nts CHOLESTEROL (test code = 2210) 212 MG/DL <200 H TRIGLYCERIDES (test code = 2232) 116 MG/DL <150 HDL CHOLESTEROL (test code = 2220) 53 MG/DL >39 CALC LDL CHOL (test code = 223) 137 MG/DL <100 H NOTE: CALCULATED LDL IS BASED ON DOMINIQUE-PEREZ METHOD WHICHINCLUDES ADJUSTABLE TRIGLYCERIDE:VLDL CHOLESTEROL RATIO.THIS FACTOR VARIES BY MEASURED TRIGLYCERIDE AND NON-HDLCHOLESTEROL CONCENTRATIONS WITH INCREASED CALCULATED LDL SEENIN HIGHER TRIGLYCERIDE OR LOWER NON-HDL SPECIMENS. FOR MOREINFORMATION, SEE CLIENT ANNOUNCEMENT AT [email or web address] RATIO LDL/HDL (test code = 223) 2.58 RATIO <3.22 COMPREHENSIVE METABOLIC [id number] 04:13:51* Test Item Value Reference Range Interpretation Comme nts GLUCOSE (test code = 2216) 97 MG/DL 70-99 BUN (test code = 2207) 9 MG/DL 6-20 CREATININE (test code = 2214) 0.86 MG/DL 0.60-1.30 eGFR (2020 CKD-EPI) (test co de = 08542) 84 ML/MIN/1.73 >60 CALC BUN/CREAT (test code = 2235) 10 RATIO 6-28 SODIUM (test code = 223) 140 MEQ/L 133-146 POTASSIUM (test code = 2228) 4.4 MEQ/L 3.5-5.4 CHLORIDE (test code = 2215) 104 MEQ/L 95-107 CARBON DIOXIDE (test code = 2206) 25 MEQ/L 19-31 CALCIUM (test code = 2209) 9.3 MG/DL 8.5-10.5 PROTEIN, TOTAL (test code = 2229) 6.5 G/DL 6.1-8.3 ALBUMIN (test code = 220) 4.4 G/DL 3.5-5.2 CALC GLOBULIN (test code = 2240) 2.1 G/DL 1.9-3.7 CALC A/G RATIO (test code = 2234) 2.1 RATIO 1.0-2.6 BILIRUBIN, TOTAL (test code = 220) <0.2 MG/DL <=1.2 ALKALINE PHOSPHATASE (test code = 2204) 149 U/L 40-118 H AST (test code = 2218) 17 U/L 9-40 ALT (test code = 2219) 22 U/L 5-40 HEMOGLOBIN [id number] 03:10:06* Test Item Value Reference Range Interpretation Comme nts HEMOGLOBIN A1c (test code = 32610) 5.6 % 4.2-5.6 CBC W/AUTO DIFF RFLX SMEAR [id number] 02:37:07* Test Item Value Reference Range Interpretation Comme nts WBC (test code = 1001) 6.2 K/UL 3.5-11.0 RBC (test code = 1002) 4.51 M/UL 3.80-5.40 HEMOGLOBIN (test code = 1003) 9.7 G/DL 11.5-15.5 L HEMATOCRIT (test code = 1004) 32.6 % 34.0-45.0 L MCV (test code = 1005) 72.3 fL 80.0-99.0 L MCH (test code = 1006) 21.5 PG 25.0-33.0 L MCHC (test code = 1007) 29.8 G/DL 31.0-36.0 L RDW (test code = 1038) 17.0 % 11.5-15.0 H NEUTROPHILS (test code = 1008) 69.7 % NOTE: ORDER CODE CONVERTED TO AUTOMATED DIFFERENTIAL.A MANUAL DIFFERENTIAL WILL BE PERFORMED IF INDICATED.SEE [email or web address] CONTACT YOUR LOCAL [facility] CUSTOMER SERVICEDEPARTMENT FOR FURTHER INFORMATION. LYMPHOCYTES (test code = 1010) 19.5 % MONOCYTES (test code = 1011) 5.6 % EOSINOPHILS (test code = 1012) 4.3 % BASOPHILS (test code = 1013) 0.6 % IMMATURE GRANULOCYTES (test code = 1036) 0.3 % NUCLEATED RBCS (test code = 1065) 0.0 /100 WBC'S See_Comment [Automated message] The system which generated this result transmitted reference range: 0.0. The reference range was not used to interpret this result as normal/abnormal. PLATELET COUNT (test code = 1015) 218 K/UL 130-400 ABSOLUTE NEUTROPHILS (test code = 1066) 4.32 K/UL 1.50-7.50 ABSOLUTE LYMPHOCYTES (test code = 1067) 1.21 K/UL 1.00-4.00 ABSOLUTE MONOCYTES (test code = 1068) 0.35 K/UL 0.20-1.00 ABSOLUTE EOSINOPHILS (test code = 1040) 0.27 K/UL 0.00-0.50 ABSOLUTE BASOPHILS (test code = 1069) 0.04 K/UL 0.00-0.20 ABS IMMATURE GRANULOCYTES (test code = 1020) 0.02 K/UL 0.00-0.10 ABS NUCLEATED RBCS (test code = 56312) 0.00 K/UL 0.00-0.11 RETICULOCYTE WITH [id number] 02:37:07* Test Item Value Reference Range Interpretation Comme nts RETICULOCYTE COUNT (test cod e = 1018) 2.55 % 0.80-2.40 H ABSOLUTE RETICULOCYTE (test code = 46513) 115.0 K/UL 32.0-105.[address] ACUTE STROKE ANGIOGRAM [id number] 13:46:46CT STROKE ANGIOGRAM HEAD, CT STROKE ANGIOGRAM NECK HISTORY: 47 years old, Female with Neuro deficit, acute, stroke suspectedRad: please obtain POCT creatinine prior to CTA head/neck TECHNIQUE: CTA ofthe head and neck was performed with IV [...] caliber. The superior cerebellar arteriesare patent. The CNC MANAGER are patent bilaterally. No sizable posteriorcommunicating arteries are seen. The petrous, cavernous and supraclinoid internal carotid segmentsarewidely patent. The GIBSON and MCA are patent bilaterally. An anteriorcommunicating artery is seen. The dural venous sinuses are opacified and unremarkable.[facility] [id number] 13:46:46CT STROKE ANGIOGRAM HEAD, CT STROKE ANGIOGRAM NECK HISTORY: 47 years old, Female with Neuro deficit, acute, stroke suspectedRad: please obtain POCT creatinine prior to CTA head/neck TECHNIQUE: CTA ofthe head and neck was performed with IV [...] caliber. The superior cerebellar arteriesare patent. The CNC MANAGER are patent bilaterally. No sizable posteriorcommunicating arteries are seen. The petrous, cavernous and supraclinoid internal carotid segmentsarewidely patent. The GIBSON and MCA are patent bilaterally. An anteriorcommunicating artery is seen. The dural venous sinuses are opacified and unremarkable.[facility] [id number] 13:46:46CT STROKE ANGIOGRAM HEAD, CT STROKE ANGIOGRAM NECK HISTORY: 47 years old, Female with Neuro deficit, acute, stroke suspectedRad: please obtain POCT creatinine prior to CTA head/neck TECHNIQUE: CTA ofthe head and neck was performed with IV [...] caliber. The superior cerebellar arteriesare patent. The CNC MANAGER are patent bilaterally. No sizable posteriorcommunicating arteries are seen. The petrous, cavernous and supraclinoid internal carotid segmentsarewidely patent. The GIBSON and MCA are patent bilaterally. An anteriorcommunicating artery is seen. The dural venous sinuses are opacified and unremarkable.[facility] [id number] 13:46:46CT STROKE ANGIOGRAM HEAD, CT STROKE ANGIOGRAM NECK HISTORY: 47 years old, Female with Neuro deficit, acute, stroke suspectedRad: please obtain POCT creatinine prior to CTA head/neck TECHNIQUE: CTA ofthe head and neck was performed with IV [...] caliber. The superior cerebellar arteriesare patent. The CNC MANAGER are patent bilaterally. No sizable posteriorcommunicating arteries are seen. The petrous, cavernous and supraclinoid internal carotid segmentsarewidely patent. The GIBSON and MCA are patent bilaterally. An anteriorcommunicating artery is seen. The dural venous sinuses are opacified and unremarkable.[facility] ACUTE STROKE HEAD WO [id number] 13:44:48EXAM: CT STROKE HEAD WO CONTRAST HISTORY: 47 years-old Female; Provided indication: Neuro deficit, acute,stroke suspected. Aggressively shaking followed by a period ofnonresponsiveness. TECHNIQUE: Axial CT of the head was performed without intravenouscontrast.Coronal and sagittal reformats were generated. COMPARISON: None FINDINGS: The ventricles and cerebral sulci are normal in caliber and configuration.No midline shift or pathological extra-axial fluid collection is present.The basal cisternsare unremarkable. No acute intracranial hemorrhage or significant mass effect is visualized.No parenchymal attenuation abnormality is seen. The sue-white matterdifferentiation is preserved. The mastoid air cells and visualized paranasal air sinuses are clear. Thecalvarium and central skull base are unremarkable.[facility] ACUTE STROKE HEAD WO [id number] 13:44:48EXAM: CT STROKE HEAD WO CONTRAST HISTORY: 47 years- old Female; Provided indication: Neuro deficit, acute,stroke suspected. Aggressively shaking followed by a period ofnonresponsiveness. TECHNIQUE: Axial CT of the head was performed without intravenouscontrast.Coronal and sagittal reformats were generated. COMPARISON: None FINDINGS: The ventricles and cerebral sulci are normal in caliber and configuration.No midline shift or pathological extra-axial fluid collection is present.The basal cisternsare unremarkable. No acute intracranial hemorrhage or significant mass effect is visualized.No paren chymal attenuation abnormality is seen. The sue-white matterdifferentiation is preserved. The mastoid air cells and visualized paranasal air sinuses are clear. Thecalvarium and central skull base are unremarkable.[address]04-26 04:29:26* Test Item Value Reference Range Interpretation Comme nts [place] (test code = 8549989460) 0.6 mmol/L 0.6-1.2 ZAINAB (test code = ZAINAB) Toxic Range: ? Greater than 1.2 mmol/L Lab Interpretation (test code = 34696-0) Normal [address]04-26 04:29:26* Test Item Value Reference Range Interpretation Comme nts [place] (test code = 7498613558) 0.6 mmol/L 0.6-1.2 ZAINAB (test code = ZAINAB) Toxic Range: ? Greater than 1.2 mmol/L Lab Interpretation (test code = 84340-4) Normal [address]04-26 04:29:26* Test Item Value Reference Range Interpretation Comme nts [place] (test code = 1994913451) 0.6 mmol/L 0.6-1.2 ZAINAB (test code = ZAINAB) Toxic Range: ? Greater than 1.2 mmol/L Lab Interpretation (test code = 19288-5) Normal [address]04-26 04:29:26* Test Item Value Reference Range Interpretation Comme nts [place] (test code = 5182415645) 0.6 mmol/L 0.6-1.2 ZAINAB (test code = ZAINAB) Toxic Range: ? Greater than 1.2 mmol/L Lab Interpretation (test code = 96750-5) Normal [address]04-26 04:29:26* Test Item Value Reference Range Interpretation Comme nts [place] (test code = 5035272267) 0.6 mmol/L 0.6-1.2 ZAINAB (test code = ZAINAB) Toxic Range: ? Greater than 1.2 mmol/L Lab Interpretation (test code = 41369-3) Normal [address]04-26 04:29:26* Test Item Value Reference Range Interpretation Comme nts [place] (test code = 0512924856) 0.6 mmol/L 0.6-1.2 ZAINAB (test code = ZAINAB) Toxic Range: ? Greater than 1.2 mmol/L Lab Interpretation (test code = 46282-0) Normal [facility]2024-04-26 04:29:26* Test Item Value Reference Range Interpretation Comme nts [place] (test code = 1687794287) 0.6 mmol/L 0.6-1.2 ZAINAB (test code = ZAINAB) Toxic Range: ? Greater than 1.2 mmol/L Lab Interpretation (test code = 54096-1) Normal [facility]2024-04-26 04:29:26* Test Item Value Reference Range Interpretation Comme nts [place] (test code = 8255507738) 0.6 mmol/L 0.6-1.2 ZAINAB (test code = ZAINAB) Toxic Range: ? Greater than 1.2 mmol/L Lab Interpretation (test code = 31799-2) Normal [facility]2024-04-26 04:29:26* Test Item Value Reference Range Interpretation Comme nts [place] (test code = 0051944780) 0.6 mmol/L 0.6-1.2 ZAINAB (test code = ZAINAB) Toxic Range: ? Greater than 1.2 mmol/L Lab Interpretation (test code = 49705-1) Normal [facility]2024-04-26 03:33:22 ALCOHOL<10mg/dL06/07/2023 10:33 PM [facility] SERVICESToxic Greater than or equal to 80 mg/dL. NOTE: Whole blood values are approximately 10% to 15% lower than serum and plasma.[facility]2024-04-26 03:33:22ALCOHOL<10mg/dL06/07/2023 10:33 PM CDTUTMB LABORATORY SERVICESToxic Greater than or equal to 80 mg/dL. NOTE: Whole blood values are approximately 10% to 15% lower than serum and plasma.[facility] 2023-06-08 03:33:22ALCOHOL<10mg/dL06/07/2023 10:33 PM CDTUTMB LABORATORY SERVICESToxic Greater than or equal to 80 mg/dL. NOTE: Whole blood values are approximately 10% to 15% lower than serum and plasma.[facility]2024-04-26 03:33:22ALCOHOL<10mg/dL06/07/2023 10:33 PM CDTUTMB LABORATORY SERVICESToxic Greater than or equal to 80 mg/dL. NOTE: Whole blood values are approximately 10% to 15% lower than serum and plasma.[facility]2024-04-26 03:33:22ALCOHOL<10mg/dL06/07/2023 10:33 PM CDTUTMB LABORATORY SERVICESToxic Greater than or equal to 80 mg/dL. NOTE: Whole blood values are approximately 10% to 15% lower than serum and plasma.[facility]2024-04-26 03:33:22ALCOHOL<10mg/dL06/07/2023 10:33 PM CDTUTMB LABORATORY SERVICESToxic Greater than or equal to 80 mg/dL. NOTE: Whole blood values are approximately 10% to 15% lower than serum and plasma. [facility]2024-04-26 03:33:22 ALCOHOL<10mg/dL06/07/2023 10:33 PM CDTUTMB LABORATORY SERVICESToxic Greater than or equal to 80 mg/dL. NOTE: Whole blood values are approximately 10% to 15% lower than serum and plasma.[facility]2024-04-26 03:33:22ALCOHOL<10mg/dL06/07/2023 10:33 PM CDTUTMB LABORATORY SERVICESToxic Greater than or equal to 80 mg/dL. NOTE: Whole blood values are approximately 10% to 15% lower than serum and plasma.[facility] 2023-06-08 03:33:22ALCOHOL<10mg/dL06/07/2023 10:33 PM CDTUTMB LABORATORY SERVICESToxic Greater than or equal to 80 mg/dL. NOTE: Whole blood values are approximately 10% to 15% lower than serum and plasma.[facility] - Code [id number] 03:15:34* Test Item Value Reference Range Interpretation Comme nts TROPONIN I (test code = 0609276110) 0.003 ng/mL <=0.034 ZAINAB (test code = [...] of biotin. Lab Interpretation (test code = 74498-6) Normal [facility] I - Code [id number] 03:15:34* Test Item Value Reference Range Interpretation Comme nts TROPONIN I (test code = 9794914206) 0.003 ng/mL <=0.034 ZAINAB (test code = [...] of biotin. Lab Interpretation (test code = 50989-7) Normal [facility] I - Code [id number] 03:15:34* Test Item Value Reference Range Interpretation Comme nts TROPONIN I (test code = 4515219900) 0.003 ng/mL <=0.034 ZAINAB (test code = [...] of biotin. Lab Interpretation (test code = 34070-5) Normal [facility] I - Code [id number] 03:15:34* Test Item Value Reference Range Interpretation Comme nts TROPONIN I (test code = 2410435987) 0.003 ng/mL <=0.034 ZAINAB (test code = [...] of biotin. Lab Interpretation (test code = 35601-6) Normal [facility] I - Code [id number] 03:15:34* Test Item Value Reference Range Interpretation Comme nts TROPONIN I (test code = 4543246103) 0.003 ng/mL <=0.034 ZAINAB (test code = [...] of biotin. Lab Interpretation (test code = 31053-7) Normal [facility] I - Code Mqmnzn1663-27-12 03:15:34* Test Item Value Reference Range Interpretation Comme nts TROPONIN I (test code = 2577238894) 0.003 ng/mL <=0.034 ZAINAB (test code = [...] of biotin. Lab Interpretation (test code = 29960-8) Normal [facility] I - Code [id number] 03:15:34* Test Item Value Reference Range Interpretation Comme nts TROPONIN I (test code = 3913598277) 0.003 ng/mL <=0.034 ZAINAB (test code = [...] of biotin. Lab Interpretation (test code = 54383-3) Normal [facility] I - Code [id number] 03:15:34* Test Item Value Reference Range Interpretation Comme nts TROPONIN I (test code = 2979552190) 0.003 ng/mL <=0.034 ZAINAB (test code = [...] of biotin. Lab Interpretation (test code = 94070-2) Normal [facility] - Code [id number] 03:15:34* Test Item Value Reference Range Interpretation Comme nts TROPONIN I (test code = 7612818440) 0.003 ng/mL <=0.034 ZAINAB (test code = [...] of biotin. Lab Interpretation (test code = 86473-4) [facility] (NA, K, CL, CO2, Glucose, BUN, Creatinine, CA) - Code [id number] 03:03:47* Test Item Value Reference Range Interpretation Comme nts NA (test code = 4956463575) 135 mmol/L 135-145 K (test code = 2968393800) 4.3 mmol/L 3.5-5.0 CL (test code = 8420415770) 103 mmol/L 98-108 CO2 TOTAL (test code = 8691062705) 28 mmol/L 23-31 AGAP (test code = 3769085092) 4 2-16 BUN (test code = 2262067650) 11 mg/dL 7-23 GLUCOSE (test code = 0068899676) 120 mg/dL 70-110 H CREATININE (test code = 2160-0) 0.71 mg/dL 0.50-1.04 CALCIUM (test code = 9361671120) 9.3 mg/dL 8.6-10.6 eGFR (test code = 19969-2) 107.0 mL/min/1.73m2 CKD-EPI eGFR (2020). Assuming creatinine has been stable day-to-day for at least three months, the eGFR indicates Category G1 (>= 90 mL/min/1.73 m2) Lab Interpretation (test code = 93017-9) Abnormal [facility] Metabolic Panel (NA, K, CL, CO2, Glucose, BUN, Creatinine, CA) - Code Nrtkwx0447-08-63 03:03:47* Test Item Value Reference Range Interpretation Comme nts NA (test code = 1158366872) 135 mmol/L 135-145 K (test code = 4516949069) 4.3 mmol/L 3.5-5.0 CL (test code = 3793350572) 103 mmol/L 98-108 CO2 TOTAL (test code = 1506906641) 28 mmol/L 23-31 AGAP (test code = 9920225041) 4 2-16 BUN (test code = 0020445304) 11 mg/dL 7-23 GLUCOSE (test code = 5542336558) 120 mg/dL 70-110 H CREATININE (test code = 2160-0) 0.71 mg/dL 0.50-1.04 CALCIUM (test code = 7892205533) 9.3 mg/dL 8.6-10.6 eGFR (test code = 35461-9) 107.0 mL/min/1.73m2 CKD-EPI eGFR (2020). Assuming creatinine has been stable day-to-day for at least three months, the eGFR indicates Category G1 (>= 90 mL/min/1.73 m2) Lab Interpretation (test code = 37940-9) Abnormal [facility] Metabolic Panel (NA, K, CL, CO2, Glucose, BUN, Creatinine, CA) - Code [id number] 03:03:47* Test Item Value Reference Range Interpretation Comme nts NA (test code = 6920365608) 135 mmol/L 135-145 K (test code = 7517339418) 4.3 mmol/L 3.5-5.0 CL (test code = 4382225427) 103 mmol/L 98-108 CO2 TOTAL (test code = 8787232521) 28 mmol/L 23-31 AGAP (test code = 9321911990) 4 2-16 BUN (test code = 5472742755) 11 mg/dL 7-23 GLUCOSE (test code = 3811293618) 120 mg/dL 70-110 H CREATININE (test code = 2160-0) 0.71 mg/dL 0.50-1.04 CALCIUM (test code = 8808185989) 9.3 mg/dL 8.6-10.6 eGFR (test code = 37471-3) 107.0 mL/min/1.73m2 CKD-EPI eGFR (2020). Assuming creatinine has been stable day-to-day for at least three months, the eGFR indicates Category G1 (>= 90 mL/min/1.73 m2) Lab Interpretation (test code = 55907-4) Abnormal [facility] Metabolic Panel (NA, K, CL, CO2, Glucose, BUN, Creatinine, CA) - Code Ivikuu4523-16-67 03:03:47* Test Item Value Reference Range Interpretation Comme nts NA (test code = 4482479959) 135 mmol/L 135-145 K (test code = 8326388313) 4.3 mmol/L 3.5-5.0 CL (test code = 0887221485) 103 mmol/L 98-108 CO2 TOTAL (test code = 0574024807) 28 mmol/L 23-31 AGAP (test code = 5639154407) 4 2-16 BUN (test code = 0560790507) 11 mg/dL 7-23 GLUCOSE (test code = 8649543284) 120 mg/dL 70-110 H CREATININE (test code = 2160-0) 0.71 mg/dL 0.50-1.04 CALCIUM (test code = 0561634525) 9.3 mg/dL 8.6-10.6 eGFR (test code = 50647-1) 107.0 mL/min/1.73m2 CKD-EPI eGFR (2020). Assuming creatinine has been stable day-to-day for at least three months, the eGFR indicates Category G1 (>= 90 mL/min/1.73 m2) Lab Interpretation (test code = 43855-5) Abnormal [facility] Metabolic Panel (NA, K, CL, CO2, Glucose, BUN, Creatinine, CA) - Code Cemyts3892-20-76 03:03:47* Test Item Value Reference Range Interpretation Comme nts NA (test code = 1597034268) 135 mmol/L 135-145 K (test code = 7735861914) 4.3 mmol/L 3.5-5.0 CL (test code = 4779313833) 103 mmol/L 98-108 CO2 TOTAL (test code = 7588662987) 28 mmol/L 23-31 AGAP (test code = 1938905425) 4 2-16 BUN (test code = 5829568571) 11 mg/dL 7-23 GLUCOSE (test code = 0008783115) 120 mg/dL 70-110 H CREATININE (test code = 2160-0) 0.71 mg/dL 0.50-1.04 CALCIUM (test code = 6252331716) 9.3 mg/dL 8.6-10.6 eGFR (test code = 33773-8) 107.0 mL/min/1.73m2 CKD-EPI eGFR (2020). Assuming creatinine has been stable day-to-day for at least three months, the eGFR indicates Category G1 (>= 90 mL/min/1.73 m2) Lab Interpretation (test code = 14069-2) Abnormal [facility] Metabolic Panel (NA, K, CL, CO2, Glucose, BUN, Creatinine, CA) - Code Xmwmot4065-39-81 03:03:47* Test Item Value Reference Range Interpretation Comme nts NA (test code = 9983648871) 135 mmol/L 135-145 K (test code = 7020599291) 4.3 mmol/L 3.5-5.0 CL (test code = 6450312516) 103 mmol/L 98-108 CO2 TOTAL (test code = 0305400769) 28 mmol/L 23-31 AGAP (test code = 9489088804) 4 2-16 BUN (test code = 9471630480) 11 mg/dL 7-23 GLUCOSE (test code = 4451532945) 120 mg/dL 70-110 H CREATININE (test code = 2160-0) 0.71 mg/dL 0.50-1.04 CALCIUM (test code = 2570475357) 9.3 mg/dL 8.6-10.6 eGFR (test code = 96203-3) 107.0 mL/min/1.73m2 CKD-EPI eGFR (2020). Assuming creatinine has been stable day-to-day for at least three months, the eGFR indicates Category G1 (>= 90 mL/min/1.73 m2) Lab Interpretation (test code = 59520-1) Abnormal [facility] Metabolic Panel (NA, K, CL, CO2, Glucose, BUN, Creatinine, CA) - Code Ekkpna8428-41-89 03:03:47* Test Item Value Reference Range Interpretation Comme nts NA (test code = 6282295317) 135 mmol/L 135-145 K (test code = 0903418372) 4.3 mmol/L 3.5-5.0 CL (test code = 2838441323) 103 mmol/L 98-108 CO2 TOTAL (test code = 2667980347) 28 mmol/L 23-31 AGAP (test code = 0986852322) 4 2-16 BUN (test code = 9946006736) 11 mg/dL 7-23 GLUCOSE (test code = 0024664172) 120 mg/dL 70-110 H CREATININE (test code = 2160-0) 0.71 mg/dL 0.50-1.04 CALCIUM (test code = 8490995202) 9.3 mg/dL 8.6-10.6 eGFR (test code = 68897-9) 107.0 mL/min/1.73m2 CKD-EPI eGFR (2020). Assuming creatinine has been stable day-to-day for at least three months, the eGFR indicates Category G1 (>= 90 mL/min/1.73 m2) Lab Interpretation (test code = 99140-9) Abnormal [facility] Metabolic Panel (NA, K, CL, CO2, Glucose, BUN, Creatinine, CA) - Code Adyras9525-11-51 03:03:47* Test Item Value Reference Range Interpretation Comme nts NA (test code = 3151915171) 135 mmol/L 135-145 K (test code = 2935671409) 4.3 mmol/L 3.5-5.0 CL (test code = 3645701412) 103 mmol/L 98-108 CO2 TOTAL (test code = 5938795908) 28 mmol/L 23-31 AGAP (test code = 3489229082) 4 2-16 BUN (test code = 1357153575) 11 mg/dL 7-23 GLUCOSE (test code = 3633431835) 120 mg/dL 70-110 H CREATININE (test code = 2160-0) 0.71 mg/dL 0.50-1.04 CALCIUM (test code = 9049831598) 9.3 mg/dL 8.6-10.6 eGFR (test code = 41903-2) 107.0 mL/min/1.73m2 CKD-EPI eGFR (2020). Assuming creatinine has been stable day-to-day for at least three months, the eGFR indicates Category G1 (>= 90 mL/min/1.73 m2) Lab Interpretation (test code = 93627-2) [facility] (NA, K, CL, CO2, Glucose, BUN, Creatinine, CA) - Code Jtpjxu6336-95-37 03:03:47* Test Item Value Reference Range Interpretation Comme [facility] NA (test code = 6761980437) 135 mmol/L 135-145 K (test code = 6898347366) 4.3 mmol/L 3.5-5.0 CL (test code = 1296493907) 103 mmol/L 98-108 CO2 TOTAL (test code = 5128372696) 28 mmol/L 23-31 AGAP (test code = 3015285407) 4 2-16 BUN (test code = 3619413490) 11 mg/dL 7-23 GLUCOSE (test code = 8380705832) 120 mg/dL 70-110 H CREATININE (test code = 2160-0) 0.71 mg/dL 0.50-1.04 CALCIUM (test code = 6172631998) 9.3 mg/dL 8.6-10.6 eGFR (test code = 34554-8) 107.0 mL/min/1.73m2 CKD-EPI eGFR (2020). Assuming creatinine has been stable day-to-day for at least three months, the eGFR indicates Category G1 (>= 90 mL/min/1.73 m2) Lab Interpretation (test code = 37655-4) [facility]normal [facility] - Code Obmkht1755-66-80 03:00:48* Test Item Value Reference Range Interpretation Comme [facility] PROTIME PATIENT (test code = 5964-2) 10.4 10.1-12.6 INR (test code = 6301-6) 0.9 Normal INR <1.1; Warfarin Therapeutic range 2.0 to 3.0 or 2.5 to 3.5, depending upon the indications. Lab Interpretation (test code = 55059-3) Normal [facility] - Code Aeejwn1757-65-10 03:00:48* Test Item Value Reference Range Interpretation Comme nts PROTIME PATIENT (test code = 5964-2) 10.4 10.1-12.6 INR (test code = 6301-6) 0.9 Normal INR <1.1; Warfarin Therapeutic range 2.0 to 3.0 or 2.5 to 3.5, depending upon the indications. Lab Interpretation (test code = 36603-2) Normal [facility] / [facility] - Code [id number] 03:00:48* Test Item Value Reference Range Interpretation Comme nts PROTIME PATIENT (test code = 5964-2) 10.4 10.1-12.6 INR (test code = 6301-6) 0.9 Normal INR <1.1; Warfarin Therapeutic range 2.0 to 3.0 or 2.5 to 3.5, depending upon the indications. Lab Interpretation (test code = 86175-6) Normal [facility] / [facility] - Code Yamvtn2209-96-03 03:00:48* Test Item Value Reference Range Interpretation Comme nts PROTIME PATIENT (test code = 5964-2) 10.4 10.1-12.6 INR (test code = 6301-6) 0.9 Normal INR <1.1; Warfarin Therapeutic range 2.0 to 3.0 or 2.5 to 3.5, depending upon the indications. Lab Interpretation (test code = 16233-2) [facility] [id number] 03:00:48* Test Item Value Reference Range Interpretation Comme nts PROTIME PATIENT (test code = 5964-2) 10.4 10.1-12.6 INR (test code = 6301-6) 0.9 Normal INR <1.1; Warfarin Therapeutic range 2.0 to 3.0 or 2.5 to 3.5, depending upon the indications. Lab Interpretation (test code = 64560-4) Normal [facility] / [facility] - Code Vssnjz9220-48-82 03:00:48* Test Item Value Reference Range Interpretation Comme nts PROTIME PATIENT (test code = 5964-2) 10.4 10.1-12.6 INR (test code = 6301-6) 0.9 Normal INR <1.1; Warfarin Therapeutic range 2.0 to 3.0 or 2.5 to 3.5, depending upon the indications. Lab Interpretation (test code = 59589-4) [facility] - Code Otjluw5419-91-30 03:00:48* Test Item Value Reference Range Interpretation Comme nts PROTIME PATIENT (test code = 5964-2) 10.4 10.1-12.6 INR (test code = 6301-6) 0.9 Normal INR <1.1; Warfarin Therapeutic range 2.0 to 3.0 or 2.5 to 3.5, depending upon the indications. Lab Interpretation (test code = 71077-8) Normal [facility] / [facility] - Code Vjajbr3035-31-46 03:00:48* Test Item Value Reference Range Interpretation Comme nts PROTIME PATIENT (test code = 5964-2) 10.4 10.1-12.6 INR (test code = 6301-6) 0.9 Normal INR <1.1; Warfarin Therapeutic range 2.0 to 3.0 or 2.5 to 3.5, depending upon the indications. Lab Interpretation (test code = 57021-8) Normal [facility] / [facility] - Code Qwcgwv7175-03-89 03:00:48* Test Item Value Reference Range Interpretation Comme nts PROTIME PATIENT (test code = 5964-2) 10.4 10.1-12.6 INR (test code = 6301-6) 0.9 Normal INR <1.1; Warfarin Therapeutic range 2.0 to 3.0 or 2.5 to 3.5, depending upon the indications. Lab Interpretation (test code = 17919-4) Normal [facility] - Code Ihxdrc9091-39-08 03:00:47* Test Item Value Reference Range Interpretation Comme nts APTT Patient (test code = 3173-2) 29 26-36 Lab Interpretation (test cod e = 18938-0) Normal [facility]2024-04-26 03:00:47* Test Item Value Reference Range Interpretation Comme nts APTT Patient (test code = 3173-2) 29 26-36 Lab Interpretation (test cod e = 22788-8) Normal [facility]2024-04-26 03:00:47* Test Item Value Reference Range Interpretation Comme nts APTT Patient (test code = 3173-2) 29 26-36 Lab Interpretation (test cod e = 79744-7) Normal [facility]2024-04-26 03:00:47* Test Item Value Reference Range Interpretation Comme nts APTT Patient (test code = 3173-2) 29 26-36 Lab Interpretation (test cod e = 00488-6) Normal [facility]2024-04-26 03:00:47* Test Item Value Reference Range Interpretation Comme nts APTT Patient (test code = 3173-2) 29 26-36 Lab Interpretation (test cod e = 24783-8) Normal [facility]2024-04-26 03:00:47* Test Item Value Reference Range Interpretation Comme nts APTT Patient (test code = 3173-2) 29 26-36 Lab Interpretation (test cod e = 26725-8) Normal [facility]2024-04-26 03:00:47* Test Item Value Reference Range Interpretation Comme nts APTT Patient (test code = 3173-2) 29 26-36 Lab Interpretation (test cod e = 15418-3) Normal [facility]2024-04-26 03:00:47* Test Item Value Reference Range Interpretation Comme nts APTT Patient (test code = 3173-2) 29 26-36 Lab Interpretation (test cod e = 24861-5) Normal [facility]2024-04-26 03:00:47* Test Item Value Reference Range Interpretation Comme nts APTT Patient (test code = 3173-2) 29 26-36 Lab Interpretation (test cod e = 69848-6) Normal [facility] without Diff - Code Xtlbin0211-25-47 02:52:09* Test Item Value Reference Range Interpretation [...] 367 166-358 H MPV (test code = 32383-1) 11.3 fL 9.5-12.9 RDW-CV (test code = 788-0) 15.4 % 12.0-15.5 RDW-SD (test code = 10904-7) 43.8 fL 39.0-49.9 NRBC x10^3 (test code = 9180597776) See_Comment [Automated Userstorylaba ge] The system which generated this result transmitted reference range: 10*3/?L. The reference range was not used to interpret this result as normal/abnormal. NRBC/100 WBC (test code = 0318667417) 0.0 0.0-10.0 IPF % (test code = 6347262130) Lab Interpretation (test code = 29100-5) Abnormal [facility] without Diff - Code Hulroo8539-64-95 02:52:09* Test Item Value Reference Range Interpretation [...] 367 166-358 H MPV (test code = 65292-9) 11.3 fL 9.5-12.9 RDW-CV (test code = 788-0) 15.4 % 12.0-15.5 RDW-SD (test code = 36900-3) 43.8 fL 39.0-49.9 NRBC x10^3 (test code = 1770796280) See_Comment [Automated messa ge] The system which generated this result transmitted reference range: 10*3/?L. The reference range was not used to interpret this result as normal/abnormal. NRBC/100 WBC (test code = 7808746355) 0.0 0.0-10.0 IPF % (test code = 9749358178) Lab Interpretation (test code = 71256-2) Abnormal [facility] without Diff - Code Ozvnfh2915-91-70 02:52:09* Test Item Value Reference Range Interpretation [...] 367 166-358 H MPV (test code = 64669-1) 11.3 fL 9.5-12.9 RDW-CV (test code = 788-0) 15.4 % 12.0-15.5 RDW-SD (test code = 51638-2) 43.8 fL 39.0-49.9 NRBC x10^3 (test code = 4392237375) See_Comment [Automated [employer]] The system which generated this result transmitted reference range: 10*3/?L. The reference range was not used to interpret this result as normal/abnormal. NRBC/100 WBC (test code = 6293820485) 0.0 0.0-10.0 IPF % (test code = 3616233843) Lab Interpretation (test code = 74123-4) Abnormal [facility] without Diff - Code Aiiurd7003-56-01 02:52:09* Test Item Value Reference Range Interpretation [...] 367 166-358 H MPV (test code = 31307-4) 11.3 fL 9.5-12.9 RDW-CV (test code = 788-0) 15.4 % 12.0-15.5 RDW-SD (test code = 69467-7) 43.8 fL 39.0-49.9 NRBC x10^3 (test code = 1631265230) See_Comment [Automated Userstoryl[employer] ge] The system which generated this result transmitted reference range: 10*3/?L. The reference range was not used to interpret this result as normal/abnormal. NRBC/100 WBC (test code = 7867414757) 0.0 0.0-10.0 IPF % (test code = 3253602985) Lab Interpretation (test code = 88895-7) Abnormal [facility] without Diff - Code Xltghl4302-20-26 02:52:09* Test Item Value Reference Range Interpretation [...] 367 166-358 H MPV (test code = 15425-7) 11.3 fL 9.5-12.9 RDW-CV (test code = 788-0) 15.4 % 12.0-15.5 RDW-SD (test code = 03346-6) 43.8 fL 39.0-49.9 NRBC x10^3 (test code = 9183283609) See_Comment [Automated messa ge] The system which generated this result transmitted reference range: 10*3/?L. The reference range was not used to interpret this result as normal/abnormal. NRBC/100 WBC (test code = 7659316735) 0.0 0.0-10.0 IPF % (test code = 7739753749) Lab Interpretation (test code = 01715-2) Abnormal [facility] without Diff - Code Gupbsx3470-50-48 02:52:09* Test Item Value Reference Range Interpretation [...] 367 166-358 H MPV (test code = 25732-9) 11.3 fL 9.5-12.9 RDW-CV (test code = 788-0) 15.4 % 12.0-15.5 RDW-SD (test code = 89888-4) 43.8 fL 39.0-49.9 NRBC x10^3 (test code = 9898115605) See_Comment [Automated messa ge] The system which generated this result transmitted reference range: 10*3/?L. The reference range was not used to interpret this result as normal/abnormal. NRBC/100 WBC (test code = 5106795245) 0.0 0.0-10.0 IPF % (test code = 4546972614) Lab Interpretation (test code = 85888-8) Abnormal [facility] without Diff - Code Ifcagf4227-93-36 02:52:09* Test Item Value Reference Range Interpretation [...] 367 166-358 H MPV (test code = 04669-4) 11.3 fL 9.5-12.9 RDW-CV (test code = 788-0) 15.4 % 12.0-15.5 RDW-SD (test code = 52529-8) 43.8 fL 39.0-49.9 NRBC x10^3 (test code = 4325216270) See_Comment [Automated [employer] ge] The system which generated this result transmitted reference range: 10*3/?L. The reference range was not used to interpret this result as normal/abnormal. NRBC/100 WBC (test code = 2585010977) 0.0 0.0-10.0 IPF % (test code = 4403584466) Lab Interpretation (test code = 75333-7) Abnormal [facility] without Diff - Code Cuffug3745-98-76 02:52:09* Test Item Value Reference Range Interpretation [...] 367 166-358 H MPV (test code = 15835-9) 11.3 fL 9.5-12.9 RDW-CV (test code = 788-0) 15.4 % 12.0-15.5 RDW-SD (test code = 28165-5) 43.8 fL 39.0-49.9 NRBC x10^3 (test code = 9540163762) See_Comment [Automated [employer] ge] The system which generated this result transmitted reference range: 10*3/?L. The reference range was not used to interpret this result as normal/abnormal. NRBC/100 WBC (test code = 8818265932) 0.0 0.0-10.0 IPF % (test code = 8694971836) Lab Interpretation (test code = 97905-2) Abnormal [facility] without Diff - Code Atzrfg0914-00-94 02:52:09* Test Item Value Reference Range Interpretation [...] 367 166-358 H MPV (test code = 93896-3) 11.3 fL 9.5-12.9 RDW-CV (test code = 788-0) 15.4 % 12.0-15.5 RDW-SD (test code = 94224-8) 43.8 fL 39.0-49.9 NRBC x10^3 (test code = 9044135426) See_Comment [Automated messa ge] The system which generated this result transmitted reference range: 10*3/?L. The reference range was not used to interpret this result as normal/abnormal. NRBC/100 WBC (test code = 7249941908) 0.0 0.0-10.0 IPF % (test code = 1007134977) Lab Interpretation (test code = 19505-7) Abnormal [facility] Glucose (Age >30 Days) - Code Stroke 2023-06-08 02:39:00* Test Item Value Reference Range Interpretation Comme nts POCT Glu (age>30days) (test code = 3342) 124 mg/dL 70-110 A Lab Interpretation (test cod e = 12863-6) Abnormal [facility] Glucose (Age >30 Days) - Code Stroke 2023-06-08 02:39:00* Test Item Value Reference Range Interpretation Comme nts POCT Glu (age>30days) (test code = 3342) 124 mg/dL 70-110 A Lab Interpretation (test cod e = 20924-4) [facility] (Age >30 Days) - Code Stroke 2023-06-08 02:39:00* Test Item Value Reference Range Interpretation Comme nts POCT Glu (age>30days) (test code = 3342) 124 mg/dL 70-110 A Lab Interpretation (test cod e = 88710-8) Abnormal [facility] BranchPOCT Glucose (Age >30 Days) - Code Stroke 2023-06-08 02:39:00* Test Item Value Reference Range Interpretation Comme nts POCT Glu (age>30days) (test code = 3342) 124 mg/dL 70-110 A Lab Interpretation (test cod e = 78691-7) Abnormal [facility] BranchPOCT Glucose (Age >30 Days) - Code Stroke 2023-06-08 02:39:00* Test Item Value Reference Range Interpretation Comme nts POCT Glu (age>30days) (test code = 3342) 124 mg/dL 70-110 A Lab Interpretation (test cod e = 38061-0) Abnormal [facility] BranchPOCT Glucose (Age >30 Days) - Code Stroke 2023-06-08 02:39:00* Test Item Value Reference Range Interpretation Comme nts POCT Glu (age>30days) (test code = 3342) 124 mg/dL 70-110 A Lab Interpretation (test cod e = 00801-1) Abnormal [facility] BranchPOCT Glucose (Age >30 Days) - Code Stroke 2023-06-08 02:39:00* Test Item Value Reference Range Interpretation Comme nts POCT Glu (age>30days) (test code = 3342) 124 mg/dL 70-110 A Lab Interpretation (test cod e = 44164-5) Abnormal [facility] BranchPOCT Glucose (Age >30 Days) - Code Stroke 2023-06-08 02:39:00* Test Item Value Reference Range Interpretation Comme nts POCT Glu (age>30days) (test code = 3342) 124 mg/dL 70-110 A Lab Interpretation (test cod e = 70379-8) Abnormal [facility] BranchPOCT Glucose (Age >30 Days) - Code Stroke 2023-06-08 02:39:00* Test Item Value Reference Range Interpretation Comme nts POCT Glu (age>30days) (test code = 3342) 124 mg/dL 70-110 A Lab Interpretation (test cod e = 28262-7) Abnormal [facility] Nuhpd0331-57-01 19:59:01* Test Item Value Reference Range Interpretation Comme nts FERRITIN (test code = 9744906058) 22.4 ng/mL 6.0-137.0 ZAINAB (test code = ZAINAB) Biotin has been reported to cause a negative bias, interpret results relative to patient's use of biotin. Lab Interpretation (test code = 04563-9) Normal [facility] Btbxg7767-54-04 19:59:01* Test Item Value Reference Range Interpretation Comme nts FERRITIN (test code = 1183258651) 22.4 ng/mL 6.0-137.0 ZAINAB (test code = ZAINAB) Biotin has been reported to cause a negative bias, interpret results relative to patient's use of biotin. Lab Interpretation (test code = 46763-9) Normal [facility] Ymyuc6221-25-14 19:59:01* Test Item Value Reference Range Interpretation Comme nts FERRITIN (test code = 7117965722) 22.4 ng/mL 6.0-137.0 ZAINAB (test code = ZAINAB) Biotin has been reported to cause a negative bias, interpret results relative to patient's use of biotin. Lab Interpretation (test code = 04489-4) Normal [facility] Tljqh2747-58-73 19:59:01* Test Item Value Reference Range Interpretation Comme nts FERRITIN (test code = 7547783216) 22.4 ng/mL 6.0-137.0 ZAINAB (test code = ZAINAB) Biotin has been reported to cause a negative bias, interpret results relative to patient's use of biotin. Lab Interpretation (test code = 11337-2) Normal [facility] Ndpid5179-47-16 19:59:01* Test Item Value Reference Range Interpretation Comme nts FERRITIN (test code = 9268510044) 22.4 ng/mL 6.0-137.0 ZAINAB (test code = ZAINAB) Biotin has been reported to cause a negative bias, interpret results relative to patient's use of biotin. Lab Interpretation (test code = 37976-0) [facility] Erjvx7858-35-22 19:59:01* Test Item Value Reference Range Interpretation Comme nts FERRITIN (test code = 3621402741) 22.4 ng/mL 6.0-137.0 ZAINAB (test code = ZAINAB) Biotin has been reported to cause a negative bias, interpret results relative to patient's use of biotin. Lab Interpretation (test code = 67411-0) Normal [facility] Vtrxg6307-90-16 19:30:52* Test Item Value Reference Range Interpretation Comme nts IRON (test code = 3316345921) 54 ug/dL 50-160 TIBC (test code = 2682248519) 434 ug/dL 250-410 H % FE SAT (test code = 1333452483) 12 % 20-50 L Lab Interpretation (test cod e = 50478-5) Abnormal [facility] Dofni1978-08-38 19:30:52* Test Item Value Reference Range Interpretation Comme nts IRON (test code = 1315862400) 54 ug/dL 50-160 TIBC (test code = 7229324228) 434 ug/dL 250-410 H % FE SAT (test code = 3622557632) 12 % 20-50 L Lab Interpretation (test cod e = 14313-0) Abnormal [facility] Jagmu2261-51-49 19:30:52* Test Item Value Reference Range Interpretation Comme nts IRON (test code = 8445897321) 54 ug/dL 50-160 TIBC (test code = 1299243640) 434 ug/dL 250-410 H % FE SAT (test code = 9746156309) 12 % 20-50 L Lab Interpretation (test cod e = 54678-0) Abnormal [facility] Idcpj8058-61-59 19:30:52* Test Item Value Reference Range Interpretation Comme nts IRON (test code = 6268074021) 54 ug/dL 50-160 TIBC (test code = 8838655780) 434 ug/dL 250-410 H % FE SAT (test code = 1158058258) 12 % 20-50 L Lab Interpretation (test cod e = 68235-2) Abnormal [facility] Ovnkn6087-26-93 19:30:52* Test Item Value Reference Range Interpretation Comme nts IRON (test code = 3348248459) 54 ug/dL 50-160 TIBC (test code = 8292702515) 434 ug/dL 250-410 H % FE SAT (test code = 2756821535) 12 % 20-50 L Lab Interpretation (test cod e = 57346-8) Abnormal [facility] Omtrv1933-79-22 19:30:52* Test Item Value Reference Range Interpretation Comme nts IRON (test code = 2979723982) 54 ug/dL 50-160 TIBC (test code = 4430553841) 434 ug/dL 250-410 H % FE SAT (test code = 1218796694) 12 % 20-50 L Lab Interpretation (test cod e = 43156-0) Abnormal [facility]2023-12-11 20:01:05* Test Item Value Reference Range Interpretation Comme nts [place] (test code = 0536707844) 0.5 mmol/L 0.6-1.2 L ZAINAB (test code = ZAINAB) Toxic Range: ? Greater than 1.2 mmol/L Lab Interpretation (test code = 39480-5) Abnormal [facility]2023-12-11 20:01:05* Test Item Value Reference Range Interpretation Comme nts [place] (test code = 2683776170) 0.5 mmol/L 0.6-1.2 L ZAINAB (test code = ZAINAB) Toxic Range: ? Greater than 1.2 mmol/L Lab Interpretation (test code = 55640-0) Abnormal [facility]2023-12-11 20:01:05* Test Item Value Reference Range Interpretation Comme nts [place] (test code = 2305065100) 0.5 mmol/L 0.6-1.2 L ZAINAB (test code = ZAINAB) Toxic Range: ? Greater than 1.2 mmol/L Lab Interpretation (test code = 08974-9) [facility] PIZC7787-23-07 19:23:05* Test Item Value Reference Range Interpretation Comme nts Case Report (test code = 5899872653) Surgical Pathology ?Case: [id number] ? Authorizing Provider: ?Dominic Keita MD ? [...] HPylori ? Final Diagnosis (test code = 1424424863) [id number] FuZzEwMzNcZnRuYmpcdWMx VPfkurQaGIlajYsqWFG5JL HhQX9duDplbPo7mVwvREPs gdM7oBZoHWjwy8pyPZA8z5 zjdizdTSOwKTlgEe5biMFy rTdbUiLcPPXiIHg3wF99XG PkaJ7xcYRtPQa7BCMsxBFl suJnFcYhYLLcmKHtrEU6YY ZvYP7ahnugJFzzFIyuKTMs juK4JHEmdTFfY5QmVJWnQX 8ujfuhZQK7UOmoGXQbRPM5 PuVwKGZvv0Wpdrt3XtLivF FyZFxwbGFpblxmczIwXHBh ueNLPnAYJA9XHVVDFKBKQ8 aILUEFGN5APUMLPuvtfYVb ELTpYFJeLYJZHD6GZYBsH2 gIUpXpGM3LOHNdSGXflFVi LJMyjrQFNcOBCH6XWU4LMZ wgQklPUFNZOlxwYXIgICAg CPRoQOkZD1TSSGSqWHONQ1 AEGNiUPHkjJk5yCYTOXX1C Q9gDF1LAVUIYIL6RIWziAM GiMJMoNVHkLQ5HPNmmXJXL QI8CRTXJEXREMQeOYZBFQA SOCDjEPRAZR8KMIWyELCQs lkefGZTrTe4rR2SSRYMMYW wgQklPUFNZOlxwYXIgICAg OWFvFQCDH2OIKnHTBV1WU3 7JGFDGJXDPEL7OIIOPWXmA QV7OPYTNVZSPRUIIZ0TwvI FyICAgICAgLSBOTyBFVklE NF2PDTQRSnOMTYxWIBBzHT lTRUFTRVxwYXIgICAgICAt SK8ROXyhAFKLPM0FOEZYTu dBTklTTVMgSURFTlRJRklF KPTMFXZWWB5VCu5VVUIHPa xwYXJccGFyfXtccnRmMVxz r8NtV7IePdSdHFuvzmVaGV OqXizgstsaQANaFHN5wvZx LURsXZlqVUGaMHthZk8nzX LbbOyzUdKdUXNfw2fkjqFL OVgrErAzV082WTAvRWxpc2 pew6OeWGSbnGUtl6K6WTBO beutlNg9g4jaWxShClS0zS CaPPjcQ8yevtKznNByG6Nd yKMrtSu2lGjwI94jo2T1Wm tgL8jhZMHsIEGeH9KwQX4q PPClGgw4ZKC5DYZ7GVVrHZ UpR8QdHG7qBEUytJUrUAd6 z7exgLibFFFjGTR3d7oqCI pxufU2TX6arq2piAk0l6cp czEgRGVmYXVsdCBQYXJhZ3 VhfLomEj4iqYv2kGdfHfxl UFW2Fns5VH4xlh84wus9uJ heVLJubsmjBuM6SCepSPLo qsazUXg5LWcvSTNacGC7DF CedRXiJ3DxPACxLL1dkix9 RVB7HZrcQMQmOzV2UNPqkT UsSZMxaRzhDEgti103TOV4 QrFiFT4gI7Uvj0E0hH7vyI EwGJRfqRIgRyCnHREcht1s dMVtBFwje3IoSUG3rdH4lP KbeKOmDWCjPE38Feyoj6On VawmIZP3KSWmfpShd1Pzz2 tfZwMcuhJlK8bfE0EkULSz VSWdZNKcKhUumpWga5Twj0 EcwRLuyXc8o8prKVCfRSDs wGpxq7scRAP6VLXmO2X3mD Yup2oiDHxwHAHkiPK4tjP5 LBGgdGAzI2CifP2xKUGtQB 0yszj4c1etKDV5KWjhXZYv PoH2hiC6KJNynMSyIHEkqE laLKzwm170KNJ4QjXbKCCv n4MgL1FgdEycH22caHvyD4 5tCSKjvRmjbH5bcRhyaO9g ZjBcZnMyNFxxbFxwbGFpbl xmMVxmczIwXGxhbmcxMDMz BBnyB0oyGgDwMIPfuYptZQ trp3CdAQFhMELaSlvdlwNl XHBhciBJIGhhdmUgcGVyc2 9uYWxseSByZXZpZXdlZCBh pIlyk3VbU4wvZZ5mC0IyrH ExpkVmpfOuPEfeFXRmt4p6 uUVyhUqrh3RixUEcLM96zw LpVMTdCAX0MIPnz8hzOC95 ooagDnWjeZ91ooNqkuLbCA Olp6fjO2pjiYJte8Tpm2Ia dyMzNWhyf8OeDA0esMYtyi yyaSR8CSBdoXAqduIpwnI7 hYesPDGbyU6ozH9efYfjgY 8aMrWuArWiBQplGK1uTCUs T1samSLgOGKnRWHrO2rmFf ZjpW6fzSzrHtgfzfW0BHTa cn19 Clinical Information (test code = 4757222428) Shivani Schuler is a 47 year old female with IDA1. Gastric polyp x 6 r/o adenoma2.Duodenal Bx, r/o Celiac disease 3. Gastric Bx r/o HPylori Gross Description (test code = 3883740175) x2xukVSsSOTywXCAZOG6LS UgVW0klDhmnBe3cNdeQQBz ypE9aUQmHTxge9msAZE0r7 dpvrNQCjxlYQTtUC3jRLip PMZsHK0qLrHdURDtEcPsJO BhcGVydzEyMjQwXHBhcGVy hEE0CDMvYF2nadizFTvoQK mhUSXrrcP9ZBKhvLBlZ3Xx HWXvDR5ptzhoGPJ1JRCZJt piSv8qrEMsrHycHvIzLbXf YXJzZXQwXGZuaWwgQXJpYW u2mT2NDelhZDZ5JRKVCaec VwxlhRnzd9CtfFPzDJDyBB xcaWQgNTEwMDAgXFxkYiBP PqIaNdI5Lpf7MLS9YyZ4RS e1PZGBKSHuOxtrBIC8EzC1 UCh6JFYjJX5uGNgmkSBmQI ywMsbaPIzsL168NIlbVGQs O9DjX3OpZIhmOkOzKIrsSZ HaTGDxPHcwDNHtO5EZYOIf POO9ByJtIPXsRIv9MXltX3 LFEQVpCMGsXsS6HZXwBiE3 IFw4LAWMAg9gXEfbYvRxFN t7HYQ5XGo4JnNxPVLnWkWz XUCvKRGvVHueyQVrVX4jrR hoELCrJZ5VZEZzXYhvOIWt FkWmN0MLR5eJBY7dSWlkkI JjaFxmczIyXHBhciANClxw MJAmGJ2PQZFfGYdfHHf4ld DnSENfFsQrJPJbO46pr7FJ c6NpKE7ARUr5gjBroqjmxT 5uRGQkvgNnRArJsYMugL3m ioXACZrcUZWjT2PdzvIkHI ykHNSvdh1wyHerGMzlChIh bGVkIHdpdGggdGhlIHBhdG qqrvAdO1G6xmZnNB1zVBOE EPLskC4lSQZtRZAul2FlaJ NjeTvwV0AutZCrFdNte8o1 wMV9NFYgecTvLXJnxVPoWS Csbc6oWHtvAeKsD9Y9HJQz MLBsx39yjJZ1gfMaAvIdcC f4bGRbUNI9JI6jsJiposDr w6u4vP4bTVSgl4U0WJEbw0 H7XJIjkuBpeMUtzYAhGPDp WR1wvkFhRX39DNSaCRdmLJ mcWGY7JTH0EPQwyMLtp2yn jpqaAz6aLYvvXB8jBUkmCP 54HGLySVvvZMStX1QnI4J2 JReyGIRrVFOmmTVbiW5mbq BzblKwyGb7QQCsWAM9cNNh tXhaXWOpAmtyqHM6WEHtBe YetsYse5QhlWw4cZEbYNez KWYigS9tmW7mOLTzKPBwux PUMyjqRIAnSSmcb2XgQIxx cGljWHNhMzAgDQpcZXBpY0 0pl3KVa9Gem7enoDvqg0Un kCCxRD6puUNzVJ9Xy1fyZE IcbYTfBLW9DLvgf7pqKZsu KKA5GXMbGyWvHIVsWO7GOt MoDKrjSPy1DKofBLj6QMt8 HR1AViLtANXlUbm2XzZ6Xv XsADh1VNsjVZ1OKVC8CYAo QDLmFReeXDD3LROuZYz7AQ IgXFxzcyAzIFxcZmwgXFxu B73osRMuPUixQmTlGAbndF ktIAOcGGZ2ZS9CWBOcDkOm E3ACX2eMGE4uLbciwjEvSI CzpeAGMwywDLGwVE9RCDJx HYjsEYf5rtUdXUQpKlKfAN YaI79gj8NSy0NdZB1NHUb3 nfDxcejnaI4gTNIckxAta6 IzMFxlcGljWHNiMzAgDQpT tAUcqL8wdnZUOEgtSXYjP7 VtgnAaRYtpGUZvnj5keLqp IGxhYmVsbGVkIHdpdGggdG veKXAssUtchqTlU3T4itVb IA0dTALZOZXdmU2sUKRdKW DgHNFvZMXugE0cDHV1s2Aa arFeKHBSNKLvrFtePE41tG BjZWxpYWMgZGlzZWFzZSBh vwBxzjFfk50glyQca4KqDG 5edMepLTsXFJljJxYaNW0f AASaloMbv6UbEY9nHSGiwJ AwTYIjisojyNAsROr4vLFe DJXcHzQrtZiil0IgRSPhAC kvLK89glSyPY7nBEfvJT4k SOypOG4rHPUtVHBoDKEcVm SmdAZmUdIuyQCmIzOtK19y KtUGcHDrd3EtW7utOU4alZ EcSmkmbMWsFEHhwFmba3Vp cNIqOSUse2QaoKGvWWxpYD 5aIUO3Wa2beYCxHBIsvgY7 l7BzFFtbXBXvHdqjDRBrLG sgr6OwFRJumQAXi6NtJT2C XHBhciANClxzYTMwXGVwaW LKq3BcWNQUCxylcRutHrMe aXWxOfH6RMGgfDRwXNF4PE 5llNhgUJBlXCe5UUsrPUCq R1LjM0GfUNjmKzUpGLwxPB LtACWtXDbmTQZpX6QBAQYn YJC7TmVfNYPiPFs7RTuhX5 GQWMVuKMAiCxD1IYK9VlS3 HBl2ZEXJBa2zUQouYsRzFV MaOtA5YVv4JyBdRBCyZjQt NKTuWCKtXRjlkTVfIR3vhH pdUNFsOILwZAR5RFSuaAXS b7FoETBwHVujRdFzBVKPTB DWSV1DYdBHTSTzMgEvjAAh WS7ACUZdkcXiIJydsLunlG 1yaBSlY9pfCgDdWayskZxs TmVzdERvYzEgDQpcbHRycG FyXGxpbjBccmluMFxzYjMw UYMtmZLOk8NxTECVCsPyJU NpbWVuIEMgaXMgcmVjZWl2 VMOtjG8sGw4dlKWjoT5uaJ PrYUmhDLWhx7j0lSZ4rJHt tKZ8yREjqGohBpTtLT0zwO UdLTSKGI81jKEuaxFjBQEe yO6uGNGeTIBdCPZ4ojodJQ BMDRC5zJWvl7B2TApyRDE0 iH0wzTsgBcHtY7X2AHRzTU Hyn98qwND5itEoVcOhUCMh wd5emD6eCTtptvOvyXazgz Qcv0H9NCRls2K8XSChucWu hGZieRUhEPQlBmK5XRPmRj W5IZQmIJGarVUvQQPmKM2s VGhlIHNwZWNpbWVuIGlzIG AlrDCuslKwJGMmzk86I2uc EMZthG0by7qcKgDkVLYyQF OovTIpvEF8SJEdnL6mnH77 vaAcysHYMQ9wxEMnIH5ILR NiMFxlcGljWHNiMCANClxw NZQySSpew9PtMWlyqYrkMV SnLtFlEFvAmKecZISOA1ld iZUdWQvkQRETSUuYT3QTKI 2SGEIltOVTXHV2NB3xYRav KMBaZ9OaP1KxsuR5e3rcjZ ncb1QetHQbDH7fwKXkIU2O XHBhcmQgDQp9 Disclaimer (test code = 9490079981) f2zrxORpPQRaa6icYLQfkF FuZzEwMzNcZnRuYmpcdWMx CRjvovFdGVesj9FmK5DjDl AwMFxhbnNpXGRlZmxhbmcx JJOmXGZ5qxHrTCLwAPrqOB HhCFvjFd2fkIRfbPxdPzUd FOQdp2ctpySUCPplJqRmR6 97HTPsGJhba7jiz2GoOQFm uESfp4K0GPLLsknkeGl6cO oaK32mm8J7QrabY9mdRAGz TCQrN0ZtZL2gSXVhTjv7SS J1XEY3CSVjRXNkU6MjBL8p MOMngJLyGVr0g5hzoWdiTM MfTKX9p0qcWFdkgpLhWX3j ju4euWp0d8vpenRrMDKiYP KvtYDKYMBeU2MzrVcuCu9m qBs0kIprWfejFRT1Ces1AS 9jmn84udo2bEeeNNQxzxgl AxX4BLdeYXKfyyetTVi9TA jxGTUkqIQ7DSOoxWEwJ9Ts ZSZyNI0lqqp4BDA1BMkqKL YwMqG3TDNuyZTxZXNliNzs IKldb835DWQ9HnPtMC6iF4 Uxb3K5gN6iuAGcRDKgwXQr VgMbKYLqci2kyDLfFKcko7 VhOMD1bnP0gGFzaVXyRFXc EN47Kwuyk4OoAtvwg6JrF1 6agBA1DSnzz2fkOM6cSoO9 nuJcKRvdz1wnyI9bToS4EF btJN9aNQ5vHFSxqQ1mkrvj XHBnYnJkcmhlYWRccGdicm EcEd7iaBxtHQA7BNyvE0sz aH4tZkJ8SCxeN2vetF8gTA w6ZYfbuBP7YESbmY1tKB8v wjkmm0njIGxzVNpkLMSkkj Y1daH7QZStgEAwA6ZfcD6n UUYiMN2obqvqd1tdNRX2JB rdIXHjBRG5NvUmHGEac2Mh viq7EwBxo9AzaFTxRNvlZ5 2au423PJUtzvIdT9xalRVv lrmlkVJnxjnaNPamcmJ3DX FujgUxs7CrTPAkAVJ6ESyk NCjgcEBzGNGnbWfpo1sxM4 RscGFyXHBsYWluXGYxXGZz MjBcbGFuZzEwMzNcaGljaF vtPBrsUrCsKNNqAUseW6xd CdBlT2BiMEJlJbYdcUVeF2 ggVGhpcyByZXBvcnQgbWF5 YYjvC4e2ILHypaUrwVv1zc WjMkAbWPUzXBK5YWnotBAt YMUzh6ExdkocuFAvSi4kkZ LlFKPgkE4lMWBgOZBnNHad QT2bzZm6TPGChZTctGDlKg EHZAIhQO42fjRoFWIDqmdx n4R1YGxnMTXfz2RrxZVhA2 qsh6LtQNAml71qEX4zn2C3 v4lwYFJ3IU1xw5WhHMCkaT KamKHaUXPos3Dlskrfs9Ch QVUfzxKmj5WbNOBdeeSnpE LdXMOnuoKjzd0cpjYeCZWo ZFRaE7KqqdgfuBrhiyLaZU Moss7pydNwQUU2GZOVULBc KCApr2JtjD9kjNSPFWP0yR Scbs6gwxXWjBWtPBEqcq08 EJVrES6vH7fxPRPyXTXxmt AmgWNbo4ZmQEShkWN7yFPm FV7HEsDMp46dVCHyVVHAka SwFWSefIlhpJQ2mcT8jH9g IChGREEpLlx+IFRoZSBGRE TlDX1giuMxp1WtnhXhmLdg CJVdkFDqu3NokSGll7BvmN qds2ClfMZsqNLpOT3fPUVy clxwYXIgVVRNQiBMYWJvcm Z9c0YbUAIiQQVvESO4rJhc gwe7BSCowB4qBPZzY9jmdh baRXctOVWzn3XuaP2huZFG lXGuo7SjkAYplIDOdBAuLD 2bsoIeMPoAOYaYIXR4itMd JYTvq3GsTGzoX9wxQ51qfF xnoMe5pTW9SPV8iB0aGvp+ IFxwYXJccGFyIEFwcHJvcH KkETJbrLglbgQqA1FofeKg cM8wwODcvkCgHP4gPB0sS3 S2vPIaMSUukcSpw3lmTPan dmUgYmVlbiByZXZpZXdlZC Oel2KnXMdeEHR8DRfwktFi bmNsdWRpbmcgSCZFLCBTcG ZkhWGsVKU2HWnkeiOwlyVv VH6hoV9axWytdS9lhLMfeS Y8xtxhISHqYOLvlNrdRTPa BQ4lgOmznR0gWzXgZcWaGV rkKB8yZBIpI5puxJOwXMLn NWXrX5reWpZucU5dmZrcYI xjZjJcZnMyMFxwYXJccGFy XHBsYWluXGYxXGZzMjBcbG FuZzEwMzNcaGljaFxmMVxk CpEoYIQuWPjzA9kkFcXvY9 UcUEOgXaCmkCWwT7ieMSki GXA5KRYvDE2mfVQcUF98eH Oue9ooPIkbcRqqwd2aV11p dWLfPIyvcCfvVCAvm57xq4 JhRXNeicRojz7dLZOndvQ1 eI1rTARddYjjFNHonFLvCI Qcv4EkCBvpkNZksbLePNnd AOChOIKcfAQlxiL2bbPrzs DfilDmJDCxfUmuEKAaj4Ts CUGkHJisi3Ewbx9vqKCbYK UirjZLvVbkrASeaH3rU7Ec GKPbKTUjrj7zIXGuxR0gXG fgk0TwbtldGKSlUMWhGIVb iyIlty5vWDVvnRYKQD1GOR tzoIZjm5MmgiVnI3kTVWA1 NUQwNjYwMjgxKSBleGNlcH GgNYBjly12UYDdgL9btFqj JEVzrY7xcB7piBfmfW9wVx GzYcDnNTjlWM8oPBGrE8cd hNQaOSVsIOHpM8vcLgVhiE 9jaFxmMVxjZjJcZnMyMFxw YXJ9fQ== Embedded Images (test code = [id number]) [facility] [id number] 19:23:05* Test Item Value Reference Range Interpretation Comme nts Case Report (test code = 0752884323) Surgical Pathology ?Case: [id number] ? Authorizing Provider: ?Dominic Keita MD ? [...] HPylori ? Final Diagnosis (test code = 1485383705) p0hqvIRmICKnx3fgRBEprM FuZzEwMzNcZnRuYmpcdWMx URjoasVpYIpvsAydJKV9LC AoHW9hdLvxyTu1cJeyODJy rsS7kJUhRYvcq2ciPEY2l5 zttbnpQVIcEYfzCl4soEUw fGjrZeQdCHDhUFk8eM12DF ZqqE8nkAHoQUz6HMPnmSDq zqVeXwPwGQLkiYZbwIN9HW MsKZ6dpryqAHniEXijAWFp drW9WPHcyVWpE1IrJKHuDH 2lnlvsMIA8TSjeTRSyORY5 IvAdOIOin5Ntnds0NyWzjK FyZFxwbGFpblxmczIwXHBh zfCCZcAWOE1NSZBXMFDVU2 sWRVTGMV3BKRFMTbndkVQq OBDuCBPnQLYLBU0ZMOXvG8 rVHoRrAN0YDNYlDPPdvLUi AWFcfiMTLhXXCL2PBR0LWZ wgQklPUFNZOlxwYXIgICAg OGJaBIfKV8MXZXOdQBZOL9 JCMRlGYEqmZt0bJSWKVN3Y C5nCA1AMBYGGKN2MVNtlWG ZmETKwZVOeUU6UEIusFNMI VM4CNXAHZTGOUYxRSIUIJK TDNReQSGSVS4QSFLzIITNw qfwaUCJnNl1qW2RCHCKNYQ wgQklPUFNZOlxwYXIgICAg CGPeGFIDS5WSBaNXVK5EB4 9AEWMNYZFQHV2KKVIVMTqS OF4FANTASQSZIAIZG5QpiS FyICAgICAgLSBOTyBFVklE SY6TZWQBXhFJHQbVABFyKU lTRUFTRVxwYXIgICAgICAt AJ2UANgzPUQEVF9SQMVUIe dBTklTTVMgSURFTlRJRklF GZFQDCXAYU1PHd9EACPRJt xwYXJccGFyfXtccnRmMVxz k3TsV9AxStZlJDgwjfNjUE YyMztrkxobNDSdWUK2fpNl EMQiOZwaTRKgJTagZs0tbX GblAmbSuArHQUxr9fbomVV GGsyToRcH330MWCmXEvua3 omo3PdMKYyeHBfr8B3LVID gvjngYv5p0xdFiSyNiN9aA HfPCzfK4wnuaCvgZXdS8Ys tXWxvXs7xOqzS37cw4T7Tg gvI8foOYObKRTnB5AgZX7n OUQvFhm0TCD7YIT1ZGFeJC XtN1XeFA4oPVUmgLQvDWi5 h0zwgWzgFENeXOK3t1ieWS ukkaV0IX5qie8joIw3r1rq czEgRGVmYXVsdCBQYXJhZ3 BzgGflLd3udOa5vUrbGoxp GNZ9Clc3CE4bgl29xyp2wR myXEGqchapQxC2SDzwBXMw sveaHZw9VRdcLBGchBM7HN BhpYHaJ4MxWMPlJW4hjdb5 CHP0TGahSDDzSuE8DRMtjN RoEULqyBuwJTmin124JRB6 BtTnCZ8fP0Nut6I2hF7xaL SuCADbaYPqMuFkHQAqmk8h iYLoWTepl6ZfJBX2ajY2eY DlwVYuVRLnAL55Dcieu0Qt RxbyIXS3EEApztEte2Vil4 glLdJhjnJaO6suG6ZyDECo MAWoAWCoRnNjvtIii1Ykf1 DexVIooGp6o1inECSaZZGz yEavh9luDZW2FLFkN3T7sS Mlx8duZBtzPDVmuKC4kkI0 AWObwYSmY0IxqG5sTGNhIS 7cgxz9v4crJMP6PYyfYHIo JgF6bdD6WAPgeDBwHROabA ntVNodj439XTC8LrQbCJAi l3JwU7MppWfzV28vxZlmW1 0jLTHttIsbpI8bcGklnR7i ZjBcZnMyNFxxbFxwbGFpbl xmMVxmczIwXGxhbmcxMDMz KQdwJ7cwFmXlGJNtpOzrBM myv0BiZBEbBVXiTapcksOy XHBhciBJIGhhdmUgcGVyc2 9uYWxseSByZXZpZXdlZCBh xKkvd5HnH6vfSK2lO9LtdR OfoiTbemVzAFucYDXpe0m0 vMZgxVixr2RisOVzJT96wb LdVOOoGPI2ATGqv6rcFK60 viawQjJzxK08bmXvqdCnCV Mkp0wfT3tjcCVme0Gfw2Un loNuSPjwj1KdOF0hpMMmdw wigVF6ARIrrLVuzhDmmbB9 wSybEWQunM3sbA0frZclpB 3lHsFbPfRmTJhbRA4cYFEe F0vitVMkTHLkRMFdB4hdMj QllA7vxXtgNutgbhH0VWGj cn19 Clinical Information (test code = [id number]) Shivani Schuler is a 47 year old female with IDA1. Gastric polyp x 6 r/o adenoma2.Duodenal Bx, r/o Celiac disease 3. Gastric Bx r/o HPylori Gross Description (test code = [id number]) o0mkyEBwTKAnuJXOUQZ0MC JqRA6lkPtchEx7gTpzPCAl rvV1dRKnAEpqq8xnLER1z0 bstlOYEvujDGKwPM8tJOob VVYtZH2iScCyACDqWmIeIU BhcGVydzEyMjQwXHBhcGVy mPA6WERnMD3sxcqgNHitOX omXPSvmrN1YBYqsHQbG2Np LOVpCS8vogqsYCQ8MGFXRy nmAz8iwOPsfUuzXwUuCvOr YXJzZXQwXGZuaWwgQXJpYW v9cP3LRgemLRF2QJKDLrnw FcvdbBqgn8QbxYMtOAMdLU xcaWQgNTEwMDAgXFxkYiBP EyJgWdQ6Blr8DFJ1VvA6TX q6XFLZJHKmStnuNWM2AqF1 MCk1BCAhKJ7sBHennGRqBB ocPobgZFxcH058GNorSIJv N1DyM4LnHHcmSkKfLMubNV IpTPPoHGjbUPJjJ2YZIBOy SMV3WlPzCTRhHMe7EPlwC0 TWQGPeEUJfQyH6SYIaUiR2 YLz9WYGSWc2dEDejUnNvVN j0GDB4NFy2XzQcZEVcAvFz UVUjMYRvGOdhkXAzCN9izT cfOPQrRA4UZDQlUQtiDFYo HkLgZ4UYB5mKRO6tPPsppD JjaFxmczIyXHBhciANClxw DRYsDN5IHALtJEolRGp3sv LhXNWyHhZdFMZuI71tw7FP y4EpBP5PMVs4tkLuahwxfE 8sWHYyxvMlSBeSqSKrcV4q zdDUOKafYUBzR3OruzZxWR tvOBVofe2ecWuxCKcqSfOb bGVkIHdpdGggdGhlIHBhdG prmaJjL9U8qoIzWS1nTTUM LNHjgU4fCHQeLXMre1FdoD WqjPwzD4HbfMXkPmGwd7o1 uSC7ANGimcHqNYXqyIUyRO Vnwd5yUHwbVzKoB5D8ZGJc OSNmq99pgTN9ceLbLpUfkA a9uLKuWAA2JP1qhRvqzdBv l1h5nC9xITMhx6T6DDCtf1 J6GXVupsUniSTesLKrMXNd HZ4plbBfAP55IRRyLUwsPU wgYQQ8KPW2UWGyfUTdk1ab vkmvJu5lEDdfTP3zNXrvOD 19YEZnJIctTJJcC9JrN3P3 OAboRNDtQPBbcIYhuK4iqx OfwcRlzKk0QTScYFB0dXKt nEzfSFItNiqzfZB9ICCzXg PfccEqc9YaxMi3iWBeEFty NUBrzT7tpC3gNQCaLCXuwg TUIdykCTQeYRahv4IlEGfo cGljWHNhMzAgDQpcZXBpY0 2no0GQf9Ydn7tnzZkuq2Tx fCZjKT9jbMJxMW5De4iwUZ BnxTQqSHN7NYivs2owYEzu IDZ4EKCdAnArCHZbMX7TJm UzIIsoTJo2WOvjTMm8BMx4 UO4JEoRiYCYnUjt1GsW6Vy VxIMt5LSkaWV1EVOL6TMBq AOJmDChcUXS0JJNhBHz9IF IgXFxzcyAzIFxcZmwgXFxu I18syAHxVHicCkAdGOlitL muKAYaASP3HD1PZQBdHtTu N4QTV5kXPT1fIhawduAyOK JmmhCIMavgJIEbVT2IHJKf UKvqZBb9cuNzTCYzRdKtWG ZvJ28da9LFc9LkPW5MWTq6 msAkxllstK4sZLOdepLnb8 IzMFxlcGljWHNiMzAgDQpT iFAlrW8ieyTIVDgsEIHcA8 ScazDrBKkmSVIuao0fkQnf IGxhYmVsbGVkIHdpdGggdG diLRZdtEarkaYnU4C1jvXn XN9wYLXDNLQmgF6mEMNeVK XgVXXuVGDwpH9uIAX1l2Np hrEuAZTWRPEqqOugKF01gZ BjZWxpYWMgZGlzZWFzZSBh ozBeadWyr38eqrJib3XxJZ 1waRpzJTtEIJxsYbHcBR7t VHSxarHbo0KnGI0pJVCfyA DbEKXfrjffbSGsOTe8xXQa NQIhOmSftAxcb2CwBLSfZU biJV06cwHnJY7rUAhiUM6l UNbkID3hJTUdNTVgHMHzTv UbdORqPvDkhYIyBfXmR91l PtHCcGPkk7PgD8xrFL1gwM DzEbllbHNnMCTedXtug0Qf kINlOHUgu1XceXAwVOphAJ 7tNWL9Zo4fjHMzMIAqzkA1 i8LkCJghCXDzNgjfQPQuGZ mow1AhEINhtDDXa8AzKF6R XHBhciANClxzYTMwXGVwaW GLu2WkFOGYBeivoKxbKcEk sRAaWyE2HJWhbEAlJUH8EZ 5aoBhgDXMpAIl3ZEjgVDZr H0XeD7IoHIxpKuSbTCcgHQ GlMBPxDPpxPNIzF1BQXAKq WWP6RqNsNZXxEQf9DExoM7 FBYTWeWJYtMuR1SQT5TqX5 ZYl8UOLAWv7gUDrrSjJdRL UnAqY6OEu4ZwAnKJWkYdYw NKCqTJDsWZgbbYMkTE9vvU tdYKCyCBUzKDB8SXBaoNCU z0GtURZnPEahKcSpCVKKQD XRIM5IYjKIWTIaRaNvlVZr DB3HVYBifmJmSWksgKvbpD 8ndNXsJ2cvIoHtPqwrgFpf TmVzdERvYzEgDQpcbHRycG FyXGxpbjBccmluMFxzYjMw FNQbxSKUe2JkDSCRUvLfUT NpbWVuIEMgaXMgcmVjZWl2 KLWzjU4xHg7anKCulT9ixB UbUTbhACDls9s7mDW8cHNt xHM4sIVpdVltTdZrEP1gcZ TjITGMFL50dJCjvjRpWGSb mC7sYPMvFVChZEK1bnmtND JURTY0wTRyq0K1DQpoGEJ4 yO0cmUxdBbWeU2M6IHUrPD Ppf12omRT1bdEpEvTnAEBu jp6euZ7lYElkfmPwjTzjix Aag3A6VIJwl2H1EWXqidEq qGZicNRjDUElKfJ3BUCsJv K3WDZeAWZpnUNwUHLlSD6l VGhlIHNwZWNpbWVuIGlzIG MudWLejoCpODGkzz05N1gz SQZgtM2ek1fnVaMxIDNyRK XykDGkhYC7XLQzuE8mkU71 auVwjiREKF7nrTEtNH8PYV NiMFxlcGljWHNiMCANClxw HHLrKAmjj2XhQUazoLhrZP JtVlElNEoDkBrmKEORY6dr kSRqZBrsTVSOQEiBI1PSRB 0TCUBnzWAGTLS2EN3xQGvj SDSuJ1MmM8RltqH3b4wrpJ zrf4YwlWGrJC1cwIFtWO1Q XHBhcmQgDQp9 Disclaimer (test code = [id number]) z1jcwKGxNWYde5hfNBQyhW FuZzEwMzNcZnRuYmpcdWMx NAqljvEpUEfsb4JxM1GrPw AwMFxhbnNpXGRlZmxhbmcx SFGkPAP8bqGiLBGsDAasYD XoKSovYi0avWPhhJpeLjFq FMAoo8ppvjFPYKziHjTbP9 57AKGuAUurf4vbb8BaYHYa eSSrn8L7QYINrntebUc0qH vdY79un7V4AmwfY5pjIGSb LKVsE0LtBZ1sSBZxDhh5WR T1YWD7YRHxJRVtH0HsAO1z LTXtfDDdSMe5f9esyGsbNN VhACI0l9kiJCzirzPaNF7d bo3hlDj8d9tqdpEhAQQeTU IckHENRTOpD5MgoCoyYl7r sUb4lPfaEkqzEDR7Oab7WT 0sfh80zqa2uIouZJKztodv BzH4DChoLASrfgclFCr4DQ ixIVIiqAC6PTUipTJuP7Bd OFCfPX8vhuc8OZC4BDsdAQ YyJtY2HXUjoHRdVUBkoWxz LJgsc294NFT0NqNwVM3mP7 Tte8J0xQ2xxYPoZFJqaJXy ZdLwTRHlps2tdBGjCVsla7 EjXBV3jbE1uUNhwINuKGEm VH50Njuqq4TdKbcdi8HsB3 3kuRM9EPsfv2gkET4wVrQ9 sxHeBYepw2qzvX8cCwP9ZG hbQR1nKM8wNAJxhJ1vwfca XHBnYnJkcmhlYWRccGdicm CxDi3wmCpbWLD4QGngI7yv fS0rHbX0MAxcA5bcbH3uQC t0HLlibML3CACnzP1fHJ9x ryvrd2ucEPxsVTmrPPSnbs E3hqA7CVBrdQVoU6DjwI1r FMAzJJ3jfiaew9xcVUN8NF qwVWTkKPV7WnJyAJJwh4Lp qtz4MzBna2WujIEzQHwoE6 2qh377YLFmnjVgB4pujQRc qtwfjTIuyhfkDVyouqL2RD VtjrGaf2DbRSXyUZP8XSke VFdwtAIlLJImuZoab3uvP0 RscGFyXHBsYWluXGYxXGZz MjBcbGFuZzEwMzNcaGljaF llZErhLrMiDZVnSKntD5jg QcLxV4OrPVAoWcZeaYWqZ2 ggVGhpcyByZXBvcnQgbWF5 RWutW6w2QKKrjnZysSh6cf AiAnLmOHYfDSN6WLrleDGb JKNfx3GmcpufcCXcDv3aqO KsDUIpjM3oTJGvIISkBNyj PD2leIi9EVZHgKZdcXLrLt LJWPSdZE00wnBvRXWVdvgl i6N2WOtlFCByc1UaxYKfO5 wnr0RyBIDie27dXD6tu7P7 e2esZKQ9CE4rd8LcMQCjmN ZpmYTeQWOaf8Ietpkth3Gu WGHkhsCxv0VpUUGsaiJktU KzSBIfslTojp1rrsKkQZKs RDZuX7KdyetroYgcpqYhWV Xrej7tfkFtZGW3OJMKPPXz RJUpx9FzbC6zmOILYOI6eE Agxp5lgiPWlBXhUNDpvu74 CMKmNW5jB9yyRASxVTPsml XtwOGsw0PvGIBlsFK3tIYw PL1EWkBTb01wWNRdKVJQla WwHMRloWlleHI7usC7dD7t IChGREEpLlx+IFRoZSBGRE DdTW7ztkRqp6JehvFqaPqk RFFnlXWvh4IbcECij1GisI fuv8IlvOJsqRFkRN0tOWRn clxwYXIgVVRNQiBMYWJvcm P6h7TtKRTbJPVmAKX3tThc fhh4HBVjhG3eZRYzZ8gdrh ghDGqrOVXao7XiaQ4xoAGX qYDxk1EtvYNepUEWqENvRJ 2nnbRuTAtXSIfKIKZ2kpGc KMTnp0BwSUojR5guR05nuB kaiAj9hNQ4RQC8eD6zIwh+ IFxwYXJccGFyIEFwcHJvcH CwHOFngJrcyuYcX3UdvzAr wI2pzHQsodPoYS2vRP1qM1 X7pKBaOVFsgtEda4jiJYxh dmUgYmVlbiByZXZpZXdlZC Tcm2VyVJukWBH8IDkhjzHy bmNsdWRpbmcgSCZFLCBTcG FpjAWdYBZ8XKrcieGpbiWj BK6kzR0cmZsdzC2koBDzxU G7vknzUZPjZBUpbFmiWXVi PD2jaOrviP2zHzQmIfPzOO gfNM8ePZFfL7grqVLpXUBp VCZcD3glTsNdcE4yuPnpEK xjZjJcZnMyMFxwYXJccGFy XHBsYWluXGYxXGZzMjBcbG FuZzEwMzNcaGljaFxmMVxk YbZvMCNjJEjwC0cuAvKrO5 PrMYWvNdVngBAjE2dxIGev SSN9MBKeUI5bwJIqUI47kP Yex8jdKXbkkVxpkh4uZ87v gASiDCiktSwpYAVpf01po9 SwNHFwzqWwjt3xXFEjmmI0 sL5vWDHlqVzoSRHftDGkQW Wht1BlXEhcySWexgIlGGsf CMSjLROlhGPlmvY9ubUahk JnuyXxPQCexYfzBCUvw4Xo TULsXKell2Qkzu2lvBKlIT TmmdZEdPbwfSZotI9jH8Wj SXXvVRKgzd1wQOGlpN2bSE tdc1RelcafHZRnSKOrNMRo edSnay5zNZHviVXTGM7DEH wkcFSqc8EhcxPlI3sGRTI8 NUQwNjYwMjgxKSBleGNlcH QcIKJgmy53VVAawN1gfGcn QLYdsF4gyL2ngAbdfN7gBa QtQiFfPMruBY4kJLNzU7aw fZJxJPJsSEKnG2taJnGjnV 9jaFxmMVxjZjJcZnMyMFxw YXJ9fQ== Embedded Images (test code = [id number]) [facility] [id number] 19:23:05* Test Item Value Reference Range Interpretation Comme nts Case Report (test code = [id number]) Surgical Pathology ?Case: [id number] ? Authorizing Provider: ?Dominic Keita MD ? [...] HPylori ? Final Diagnosis (test code = [id number]) p5jyiEJmQAAlp0qzVZBhtB FuZzEwMzNcZnRuYmpcdWMx UKtxogPvDXwcbIwvNFK7ZS QmIN5cgYlllYe8dOqoZXLy nbV1xMVlWUtjf2rsYFF6k3 nmmtxnPQZoULgoKi6clMCj fLzlLhBfYTUnLOs2kL66QC HznQ3voLBbTKr3XPHzwCUj gyDkAjTdBVSlrWUrhIR0PA JoXP8azcxcKFwrQVrpHATd evJ0KKOttQOeY1IwLVLnQW 5rorokPML2IYmzRICnYYV9 TcXwYILji7Qzhvk1SrDrtS FyZFxwbGFpblxmczIwXHBh ntYHFoFEET0BLJAZONCDL2 dXRCCHWX2ETQBINmteaDJl TCDaZCLqQXJSJA8ABMZkU2 qCCaWqWT8PJBSyBBMugHEl OYGxqgSBZhSVIX4ZJU1BNP wgQklPUFNZOlxwYXIgICAg XBJnDTmEH1FLKYKaFEWKW0 RUUJgCCDttZt7xJEQZYE8A M2fJB0RCLOOTRJ1BQFsdOR QoEXJnDXYnLV3WNUjuVBXA DK6YLXIHMMMAAOjHRFHJYE KRYVlYFSLRT3DEMWcJBUQu inwvYUWcFu8mB5UACNVRKA wgQklPUFNZOlxwYXIgICAg MHCjMRQDM8TXUmOQDS4UL7 7TDGPBPTAZGC4OOCSBWBuE GR2RYTFWAVSGXGZAC1JqtH FyICAgICAgLSBOTyBFVklE HS8DBDOWImLNMZgYXJCvYJ lTRUFTRVxwYXIgICAgICAt PB2ZKMvhHLALCR5WJWJTTj dBTklTTVMgSURFTlRJRklF OMHDYZJNBY1OOn9BBJYAVs xwYXJccGFyfXtccnRmMVxz q0HjW6AqZjTaRLjmmvTsKK RtWonqibdaFVPoOJN1ndOe IWXnVWtxPKNyNUbbMc7feM UzcCxmEnNsRJXmn7pdzzVB GOxdEuQeE088GIOfPRtfv7 hvn7VtULUqtPZpd8B4GDTV racrkNw7u3mhYoWoKgF7lO AdLIfdW5dlvuLlgPZiL9Xd yLSchBn4bLduN80rn2Q8Nz mhD4omOVNrMXNjK7LuMP0b DBTeRox7ZZL6BQO1LDNjZW AuQ9BaDZ9hXKFwcZLdGKh5 u9ybmVfbPRLwYSN5y3riMB wohxN2OD5zmh2vbBj5f1vp czEgRGVmYXVsdCBQYXJhZ3 OhiCdtTp4inOs0eDcuBigb UFL9Fnh5MG9ehu52cpf9jO oqAQDalyajEmF4MEtfFHJc tzfvQLr4SLqpBEErsEC2LA UcwUFjG1GxOHWrVQ3vcbz7 JXE0HMemXDRqXkA4ADRqaL OwUZNwiVekGDapa356SHE2 CvPlWA9iA2Jpt5B4cO4faH MzPJHyuJVdEcBdBWFxsf8j gXRdLGfjh0MbVQM8oyJ9sK PfkONyYARwHO75Kfhmd6Uh YzvgPVT7ISZnpiBkv9Szw1 tuYwFoyyVnZ4kmB0ZcMMCx UBIxBLQzCjUmulArk7Svv7 PjnSWlzMj4z9pnMKCwEGIy yGryw2pkMYF7PESrW9L4bH Vdd5eoUVikIBMauII7eeN3 QLWswFGkY1KffD5sSSJsEN 8uhlq2m1qfFAA2ZWgvLAQg HlG4ixE2YIKckOJtDXBzdF ttNXflx976QRM0HzTeVEJr p0MfI6AmcQbaB81jgFapB9 4wMQWqfRylbL6tiVhanF5u ZjBcZnMyNFxxbFxwbGFpbl xmMVxmczIwXGxhbmcxMDMz DUvpY3pzYpDrETXfuTxlYZ vjs1OsMRHvIVQgPdaycyNp XHBhciBJIGhhdmUgcGVyc2 9uYWxseSByZXZpZXdlZCBh bWpve0YvB4xzXU4cK6BawN PhcaVthaNrRLccURPta8t8 uTBncBmem1RdvLEfTU19bs LgFFNjWIF9PULwp0ebHS04 rcgbQtAwwP60gvEylzFdWH Pxw3ajV2nrxQVyi6End1Fm hyAhVJydz1IfAA2mtHRcbl qdcMV7CXOeaJUjojCupcV1 qVspSBSmaW9ehU8fbVckyI 4sAgRzOxAzALgkCU7pXJBr X1yvzDSiVMTgELOrM7wkVr LtpA5wbImzRqfxqeI3UYSr cn19 Clinical Information (test code = [id number]) Shivani Schuler is a 47 year old female with IDA1. Gastric polyp x 6 r/o adenoma2.Duodenal Bx, r/o Celiac disease 3. Gastric Bx r/o HPylori Gross Description (test code = [id number]) k7uwcAHtYRGwjMXIIGG0VY XgRU9rqJfjtAj9iFbkYMIu xlW9lMKrPMfeg2lqFME0y7 iwehLIBaljJOJgBQ2dVSpa RQHmSC9cYgFjVHXrQuBoAQ BhcGVydzEyMjQwXHBhcGVy kJC8AUHkRE0zvgeiMUwbHV bzNRGxkbA5SBWbiJNnO2Jj GWKaWQ7pjrnyUPP3VLWZWh iwPc4nwNWhbThnBwJrAkKz YXJzZXQwXGZuaWwgQXJpYW g4fM8JZqicWUE5KHPAShcr MekacKcge5JfiZWlWJHmYC xcaWQgNTEwMDAgXFxkYiBP BlWbMzH6Yyb8HLC1QkL2KK q3OAXMAKGoTziyYEQ4SnP3 UKc1SBMvST2tWJejnHFwNW ayAssqJHeqV824MOifQKZg C0IoN5XrVBwiTwUyOHpfIY GxEKRmNWeoNIBmG6VKCGOw HJE1MhVsTWCcYCr9ZRfkE7 VWHYAzEZHcCrO5OJOzEhX8 FSf4DIIHTi7zFZflOdPzXW x7PNG0PKg7ViAxPVQhSaOr YICxMWWrKYbvrEVoXE5zlS eoJIMtNM2WVPGgTGnxSSCi WvYjJ1JJR6kPJH6uQYgquX JjaFxmczIyXHBhciANClxw KESkTG1RIPHmVRmrGJr9dh PlXJJxRxCzQTUeH31hv8UF f2NwUR1XTZe5cqYnmpfvcI 6dOPVlaoYlOGsCgIZruQ0h wlFBJNfkSAFbP3DykgRcZP swKCGbhb4thGymFBhmWoPt bGVkIHdpdGggdGhlIHBhdG zbtvOfB0O7mkMjFK1sAGFS DDJvcG4sSRQrHTExx5GjpT VlfYnqK2PvyTAnGgAgd4w7 bZS8EJVnbzWiOWBhrFWjGM Xhva5yKKziGaUrV4F6MIMj YXAnk24oySN6glNcYeNynD p9iOObXDO4FY2fyLprszSa f0k5pO7gWQJss2N4QGXda7 N9LEFsdpXmdUIbbAEnJWYi RQ3iidCkQZ25XODvFNbvXO esSHW9NUC5UAQclQSqn0ma cfszOk9kWBggXX0pSDjsFY 23NRDbHCqbFDDpF0PpI5C4 BWryWBSwQXJxoWIylW2mhz SytvAlfCu6YPUqKBD4cBOi uYooEXClNwabkKS9BLLaQg LviaYel7DllXb3wJClNAxd TGJorI8cnN6aTINoQPJgsu ISGooeAHRfAGfkr0ClDOsg cGljWHNhMzAgDQpcZXBpY0 7ib3WBs0Ngq7iqjClnx5Ec pFXqOC0yjHGdCH5Kq3jgQR BntLYeQJS3SRpra8seLXqt EHJ8ATIqNlOhIPPlKG5LQw QhFDuqXLn7INjpABx3XOd0 NA2FEpMmICIhLio6HgO9Ty WuTBd2ATyrQQ1IBJD9BRNd VNIcTFkkIDZ8DMGuYXg3EX IgXFxzcyAzIFxcZmwgXFxu H88mrIJvMXqxPiSxONqraY lyMKGrQIA1RQ0NUWOwAwCp T5EZE4jJOH4fFphhhcVkKN RbftTLHonpWMRbQI3TBBFr LAarNHv1wpXiAVXwFnPlHH DqR81yz3GBd6SjNK1NRKf9 sbRywppobZ8rAMDacmKek6 IzMFxlcGljWHNiMzAgDQpT uHUwsT3nqlRTGCxbCZPyD8 CvxuHeDJreFWGmun7pxCtr IGxhYmVsbGVkIHdpdGggdG xkTPAulMtyhhMdL5S5acAa ED4wNSNDNOYodM5aEJYcTL TvYBZjCGTggX8aPEW5g7Dq svFjZTKOJRWmaMhdTL72lR BjZWxpYWMgZGlzZWFzZSBh ynQmyoAfc49ipoTxa5DzDR 9pzLnoDPcWVPynRpZbRV2d TBIbqxHgf8GtXU8xAJEkjH PdDFIkyygysNPxILh9gHSp NLBqFhGeoZnes8NbRBWaOX htNR06moWnJF4yINtrXU4s MVaoQM9aFRGzQFByNPJmAf RtcAKyUbJegBJfOrKdC10a MzYNwLSdi8SeH9kyNW9auB YoTqhacFWhUHDwxBdpt1Ii tNNsMMWqt5GnzRKmAVyqXD 1jLSX4Tn3nxMRsAUCxzzY0 v0WhHCwiKCUpTxtdWKHjNR zmb3MuKKIuhLKBm5IuJQ7A XHBhciANClxzYTMwXGVwaW FLg9AyGMVQMltuaKteLxZa fICvMaA3UDMqcJTsUND8KE 0neWimBKMnRWf3LIszSGSy A2TfZ0ZwYYfgPaVrHUbkQK PkKEBnVVaiLHIfW7YOVSWc WON3TyPeDVMdEVi2AWbdQ0 LQARPiILWvHxE0LRM6AwX5 ZCs3IKMIWw9cIVaiWjVsLT SyWgC1DLa1SeMjTGDeLuQh OETsSTHpCIbboATzQG1loZ ryYBZmQYRbPXG7JQJrsWOU h4HiTEYaQXssNnBrYWZALV WDCQ8MBhGYLQLxDuXbcTBu CT5ICGMlphXpJSpxjIrmdM 6csJCoN8bcHaRtKvxzrZpx TmVzdERvYzEgDQpcbHRycG FyXGxpbjBccmluMFxzYjMw XSXjmZQIu9DaKGFHYaBlFV NpbWVuIEMgaXMgcmVjZWl2 GKUikA0wQd5uvTLcyM7czU QlFWxrBKRfw2n3rLC2cNBn uBN3dOZobAezVoXwTO0xvG TuTVODPP04gWDymdUgBYNd sT8fDQPtLBUkGSP9pwkmON OZKUH6kIEaj7H5XFtgDBQ8 gI7ydCbmTqQcE7T8WMYoPK Tdi95btUP1eyQxSmHdLKEi qb4czS8yXHzqsvAfwMdoko Mcf5A2TALzz1G8KVGqwhUa hNUdlWXvQZVzBvG9JCGbLp V0DNZiEQCdyXIjNLLpEB7h VGhlIHNwZWNpbWVuIGlzIG UqaEPtbtYfMJKbri67Y2uf VDPekM3gx4snWaPvKXOgKQ NbmBCfzAX5ZHXetM8qnK19 dlOsiaGHPC1eoMQuRM3VBF NiMFxlcGljWHNiMCANClxw EZGuEYdpj4IrXAtrbEouEJ AxNdTpPHzPyTumNVYXM0st vDPpMLqzSKHSNUsFZ9CVOO 7UUNOpaJFOPZV7JC7nKEay GNRnP1PgS7BgcvO4m8puuP nbw6VwhAZbBS8niQRsRC6Y XHBhcmQgDQp9 Disclaimer (test code = [id number]) r9lmhXKhGQRgv6ghIOIgkH FuZzEwMzNcZnRuYmpcdWMx UCcvwlFgUUhit1ImY8EtAw AwMFxhbnNpXGRlZmxhbmcx TGVbWQG4gvLaKKDyIScaMK KcXQgjDu7deKTnqPubOhSs STNlc6rhpzPGASaxYkKsU3 38XINzGLrrb9foy9YeWWRh bECey4A6OFNUtnaimRh7oH sxM22xz4F9JzfnQ2ngABMb UPPpY2SqDY3oGCUrIpq4BT W2VQT2MTOwBIWmW8NbXQ3i YPVydAKwFYh8e3cylQlhKG JgDPX4c3omSKtzjzZmXN5x el5zkPe2w2inzvRgHYDjHU BgmVKUWXFgU1AknMlkPh8q eCx8nKqeAcpvQQW8Dgo7UE 8wnm88qrn7dSfoZANtntwp RlO9HRviSBKqytsgTQa0HL jrVPQnsSW4TSVjeLUcF4Rw CAQkGO6gjcl0KNF6LXzdTI RiBuJ0UPDdaWQmPNUzrGug YIbbm922MRN0GbGoNH4pZ0 Jgn5V8wO6kyULxJYRumXWz FnSrNAPbmb0xbVFzDBguv9 OyIUC3xtI0hEBkaRLxEAYe ET04Wqdng7MoXzijo0GdU8 9iqGA1VTwyc4nlHB0eJtC0 vvIaWAevy9icuF9vEpG5SN hfNY7hWQ9bKNHeiV6tgzaz XHBnYnJkcmhlYWRccGdicm NqEl3phXvgKEK3UDgrF8jk iA5aKqD6BUcvZ3mvdG8rUF t8NQdkhMQ0BSGufD1aMU9y zvdxh3gxARneCVxiMOKnhe M9htP7QXJqjXAuI9VmsQ6f XHUfJZ2nthuxg0epPXB3QP eyTPNrCTA2KmOdHIEan9Ci dbe2UiZhx4BwyDRvZEehR5 9fk709XMIzswXrV1vthWWo niryhOWdtizaJKtkfcP9GE TfsoVfj3GiSWAhUQM1JCti QJnqhSLkVKLemFwtt9xuC0 RscGFyXHBsYWluXGYxXGZz MjBcbGFuZzEwMzNcaGljaF isWMlfNbQpVNDnBYwfK4ln RnAoA6XsMEBiOzLnrWLdF0 ggVGhpcyByZXBvcnQgbWF5 KHlaR8h8SURikfHggTo2se MlRiZxYYDdLHD9UIlaiOSa XXVfn4BcaclwvDIeLz3ilX GhNAHafC0sMQYwQLNtWSrp FU7jvZa3ZIVWyXYtjIZhPz JSLYIkLA57apBeLAKTyayx q9H6OLwxAIJbo7EuxHGfJ0 zjy7LfSJZwh36iAC7al1C4 r7xlXSK9YX7ng6SjQNJltX AeyDTsEJJys9Sryblrg3Ko YNUtpuIto0CnDRLxcmRldV XlWDAqwrJesm7ielRwROEt YFDjX5OsubfcjEhwneAzJL Eqla8kksSkOUF6ZKJUMCRn EYMgd7ErsG5qiRPPMCE2gB Tssj4xraLRjVNcNJFoep41 FNYxWR2eA7hbUCWoSPWzon VqnKLfw9CvDWJijMI1oKUo FB5QYlTMj30eHUAsABIQif AcDLMvmBxazYL5wtO4zM8l IChGREEpLlx+IFRoZSBGRE YyZF3kgtKzg8ExfcAjxJdj BYItsBZgm2GhcAYpi3SejP ucj1LgnBCuuQCzNL8iYDQm clxwYXIgVVRNQiBMYWJvcm E6e2YdQWYfAVWqLEK4fYlk opv1IIWyrD4nXHUmA6retn upBCiiPOHpx8NneZ6xjNIM cEMco2QpwHWfbKIHtOFdVU 0xdtBoZMeCQFyUWTG0rsWx JHGtl7HmQWtfG4lsY96bmD ojkOv1yPZ8MBN3cJ0uZne+ IFxwYXJccGFyIEFwcHJvcH EjHZEbkDfnweUmY2DcszGb tD3wnGQlqgThTS8hBY1jN1 P3wLBhMHRwftPpm7fsUTgu dmUgYmVlbiByZXZpZXdlZC Zdq6TcYHgkNHY8OPpaebVl bmNsdWRpbmcgSCZFLCBTcG XwuMOkTBV9FYoduiBbgwXx OE2yyO7vhJmcaD5ftKGfbR W8apkyFEQwBGPqkRdbOBZi WX6xaTubpF8iVyAyQhJvEP trHQ8vLXZzK1rnzKJvAIOc ZXCaV6nzGeLvnQ9yzXuqKT xjZjJcZnMyMFxwYXJccGFy XHBsYWluXGYxXGZzMjBcbG FuZzEwMzNcaGljaFxmMVxk ViEtVEIuEIerR4yaUlNeC2 PmWYCzWnGjgSAxB6xbKXdm MEG4GVEwDE6znDEuKL72sJ Ttv9uaEYwmuLttkd8oZ27c uPAxOPcnyQjtOQTve61it2 LqTJFosqExzj4hALUexwS0 mH5kKUUumIfsHBXlkZBiDV Qah1ZiQTmysNTalzVmOLbi LKYvSXQodKEqkwU2rbFqec VnzvAdWQTwaIkqVBJyq4Qw YWSyOXfvz0Dxoa3maYBhCJ IpirCLxEmajDBkfT7cQ4Gz HPPlXOVgdj1hFDSmzO1wQJ hzd3BmwkgiBDQyXMZfNPPw ktJoaz1qBDPykOCMUX1QUG uirEVkx1ImvwWmP6nFPWY5 NUQwNjYwMjgxKSBleGNlcH CjNFVeny29CTChhE4dlDja UYPzhL2ffN2boSbylF0nDd LtAqUrFOjpKG9iTSIcJ1ka dFEoTORaZNMcT1gvArWpzU 9jaFxmMVxjZjJcZnMyMFxw YXJ9fQ== Embedded Images (test code = [id number]) [facility] XPXJ1998-11-64 19:23:05* Test Item Value Reference Range Interpretation Comme nts Case Report (test code = [id number]) Surgical Pathology ?Case: [id number] ? Authorizing Provider: ?Dominic Keita MD ? [...] HPylori ? Final Diagnosis (test code = [id number]) e7lhwHNnYNGub8exHFDinU FuZzEwMzNcZnRuYmpcdWMx CGgmdkYoJDzslEtjSRE6MZ KmBR9lpYidtVo9yVjkZYPm ymT9nLDzGNjap5nuAGF0y4 gceximDRGuEQudNv3dhXQv cFqdWvEePSSrIEx3iJ18CE IteM7siWEsLKs8YGSotFCd vhSdZvFzUYEiwUSmxHW6UW HpOA4hlxexDXrrEHuxEXEn qiH3CPQigHGcR9WfAUOgWM 6cpqqlJKI0ZUyfJPTySAT0 ZwCmNQQqc3Hgsxw8GuGquF FyZFxwbGFpblxmczIwXHBh nmPBMdQNRA9FBWWVFONWK7 rLYBCRSV1ETKYAQcbclPWf UKYzZZQjIQVFOU5FIGByP2 iMFzCfUN7VSIZbSCZcwAZp VJLgonWTUfMUDU1BLF6HNL wgQklPUFNZOlxwYXIgICAg DEGyPIfFX7ACIJLuZBCWT3 FYIUoECVbkDs7sNFNYLS6E L9aMM1FLXPRMKA9XHSptQU ZcJOAiAYCdAY5OFBrtGBRA PZ6TOHYVJAYNWYaEDYRJBW JTADnMUMNIZ1HZOEbJYDGi zttdJVLuJm7wI5ACRIGBES wgQklPUFNZOlxwYXIgICAg YHZzBLWES7QRXeRIRQ7QT3 1ZHSGDJQJFHD2TXHPAIIeI RB8AAOBYNXTPSEUSQ6NmmH FyICAgICAgLSBOTyBFVklE XV5NXOAZRyVPXBgTYYUuMN lTRUFTRVxwYXIgICAgICAt LI2XCCecUWESPR0WMSWUPs dBTklTTVMgSURFTlRJRklF YDSUHDXXUT2RQs8OYTHOXj xwYXJccGFyfXtccnRmMVxz f0PiS6JyNzDdOWbhjuBcDM DjRnrbxjqkGMRuIHP8zdLl TTMhOTuvGGWrJVreWe4agD XnvCsyPkBmOVEiz9ooccUM GRkxToBjP552PYKhEIopz1 lqu4WhPORnmCAlh7A3HBCP xkbpbLk4a4owTnBrOcU6bC ArRWprD0fwaoGvyQAjA0Ev cVQhjLj7yYsjI74cz5Q1Wl edT7loKDFjWEDnD1FlWU5k TNHwVyd8FCI6EPC0LYPyKF HbI5AdYX7fTQOenFHaWLv1 t2ypbZmkPIXgUHK9a0pfDO rdyaR9UU4cea6fdOw0w4ds czEgRGVmYXVsdCBQYXJhZ3 DqgPtzIt2yvJf9cJudOyjt QON6Xzd1WJ1our92wbi5gF obSEHcrnvkFdS9FMwhRDRj yapqPQr9XHmjJFNnfMO0OL UqiPBeC5ZnXRGhGC9qzhp0 SJB0ETkcOHXxBuC1LWHhjK YzWNHvqNjsLDavv195JWR2 TbQfHE5pM8Thq5V8aV5inA JuXFJboIYiXpQmZTRmys7c dXAhZFvjp9MgJIT2itS0zG QenLOcYRNvWY83Gpnxd8Uq SilrRLK5OLGpfkQiw8Ytv0 cvFeFovvKmE5lnQ4AtXBMk EADxNVMpOhLdpqNqb6Uzm7 XzvIFguMb8p1uqJBUsOWZn yYprn9evMXL1RMVlC0T4xO Boj3jmBRjpZRSslUT2foQ0 XNRfzKYuU0RldF0sKPMuGA 3cvio9j9ulYAE0NGohZLTi EoG4qpH0NFGbaBEqXHCxaZ ooJNyoi258KQR0NrBzQCOm k5PcV5TybMwtK85oyEzcH8 7vKOIcwTfbtU3zkImlkO5p ZjBcZnMyNFxxbFxwbGFpbl xmMVxmczIwXGxhbmcxMDMz YZquU9ykCkZsVFSiyXwuBA pqv9OrXZNxVABlSaqmnoOn XHBhciBJIGhhdmUgcGVyc2 9uYWxseSByZXZpZXdlZCBh mCoxk8FfC1lfOB5bA1AndK RtdrHevgDqISejNCHnf9y9 kTMzaAyvy8RhyKMuZH94rx MjZMKiJBS1GYMer9bmLO18 fflcTxBmkW22nySkibHdUQ Ufe4evD3vxtMHij8Ehb8Aq laBvOHwnz5PiGB0deZPbrx mrfSM2HRWqtESfejTebtS6 vFtaMANhwV9ggG1skKaxoR 8wYoQfQfDqGIupDW3jIFHr C8ghoYDzUQDcCIUtN5whDf DwbH1yyCejNugfyuH4ZVBq cn19 Clinical Information (test code = [id number]) Shivani Schuler is a 47 year old female with IDA1. Gastric polyp x 6 r/o adenoma2.Duodenal Bx, r/o Celiac disease 3. Gastric Bx r/o HPylori Gross Description (test code = [id number]) d8accZNgMYYbhMWJOOQ7HV IlJZ4kcMlnhMk1mNrxJDJl wsE0nYAgCHxls9fsTEL0g4 kojrWEXbkwTGShEB7bYDta PZVgFH8zViKwCTZzLcLjPU BhcGVydzEyMjQwXHBhcGVy xXI1DLQkAY5vjiypOMkwSN lrCUHcesM0IUJlxBVqX1Qz XTYcGV4vmwnyVSN8IUJZSz nrUw6ppKQvnAbuOwUgHbTz YXJzZXQwXGZuaWwgQXJpYW v4uD9HFvbgOPB2DCXDJanl PtlluMtmo1GucVOkMXCwHJ xcaWQgNTEwMDAgXFxkYiBP MuZyPkO5Adl1BEL2OzV2HW b4HYZGLDLxHcewAMO4RqK3 OQx9GCPfJV1nXJcgrCKcHQ keAewyVUgpX990AIllDABv Z1QlA8QuGFoaFgFsTLtmZA AbYBFdPIbnBYGjD0LWIZOg QVP5KhOtOIOwKXx3KKedT9 MGPQAeHMZcEsH6ILTuMfH0 ZJl9NTOZZu5nWCcaAdZdHF l7CDW9WTj0ReJdMYEuMoAk DHRtTFHkSShclGVyMQ0upS uhZZLyEU3WTUIsVVxuGWUj YtRyF1QLW0iJAA6vMItafL JjaFxmczIyXHBhciANClxw ZRNuKB0FXZViMNapZMj0on XgTYRxVzOdZZFiZ11mh1PM l5IwOI2KQEm3ybMzzrdelS 0uQLHvraVjPBhLwEBjnK6u doZCYUmsTSKhC1XnpnYxMK kaSAXyno3ddXpgZHceDtAh bGVkIHdpdGggdGhlIHBhdG seghUlO3E8qoSsTJ0mENGU RHBkdA7yZFLoTSLmg8YutC DogJbgV0QnlOKvNoNfm2w0 eZX1BSUdxeGrKWXgjRGhSG Qhaz3aLCrnMkYdE0F5EEVw DZIyy45efPF4xjCeUmWazF n2vZQbLNC0WH8ooSvxitZu h9m1bZ9iKXQwe6J1BIVvz0 E3EYIrsaAodJRqhMAnCKWn NA0uhcGjDC24GIWfJMycTB ouECW5ETM3ZEDpkBHix4sx eoqhHz7eXGxlWC6uFWibLT 84GGOeVTdqZUUeG5YwA7P2 IXzdMEEnOOWzrLVhmC4enc VfbwBbjQe2BMFzPZU4hWLn oGoeAJBsMzybtNA9XGYlCj OmmaPis8HwqJo6pWOtGZxn ZTVnvP4lsB7tNPByUZVcmc QTBemgFTTqLSvmb0WzDRvt cGljWHNhMzAgDQpcZXBpY0 3uc4WUo7Stt4kutUzfn0Km zXUiWX0gcXGxAS1Iy5oaBJ ZsdTVwGGS5VHwsa9uyMSpv LZU8OURkUfOxRLBbRV2OTo LtESlwKKq1CZcjUZx2IGu7 NX1LMcTfTNUsWqd3OmJ2Fg MyYHw0GXzsNC9JKQH3KXGc MEKlICrtKKB5COYxQQe9QT IgXFxzcyAzIFxcZmwgXFxu I41qeYChRTjwEoIyCApwkS mjRMCdWXM1ZK0TWNFkClFz Y9DAD3rOSY9gRhbpcyJdNZ KvfkOKMffiFLTrLO1FRABt FNcwEUb2rsDjUFUzOkPiWR NuN48dr4FMb1HfDD1TFJv3 bbXrawzftQ3wXNIjjcOst0 IzMFxlcGljWHNiMzAgDQpT mMTxdN3klpLITMaoICXwH2 ErglQiJJamENKysi5erEii IGxhYmVsbGVkIHdpdGggdG jzBFYlmGlrnnLdS2O9fbYt YD5dPMSYEDPhuG4pEJLwJV UjUZDaGCZtbJ0iITU2t0Lt kxXlOBYEEQWqpUvxSD41dX BjZWxpYWMgZGlzZWFzZSBh auPiczQdz22azjZwp7IbNT 3teEfiVCpCUGdgOdPwME5v DFLsrkIsg3SwLC9xKWKbzG EmTURezcexrIJeGSh1kUCa BRJqQrXryPsvl7UnJBXlQL veYZ11mbByMG3gPVqtRU5s LXxuVB0bXHQdQYOuKKGgVo HshYTuEzLjuOMbUoOaS74h DdXFbDEeu1JbO2pzCP8diJ EvVugkaRPxYMSusUsqd3Xt tQIiXXDxp6JpkUWwPZfdQA 4sRAT7Ty0xoQJjNPKaeoJ2 t1VbRSjhBRBuZjgyJHGwQT twt8YhTLUyhHKVp6GjGQ7D XHBhciANClxzYTMwXGVwaW IVc3WvCKEPTflhxGxfHtDm dGNyNpO0BVWtePLfDWM8FC 6wjUcpFPDiUWn2BZbcZOZx H0VzY1AqXUprKwVeNYjhNF LdQKCbCNniOLBbD0WATOIj RVT1WeJbBWLcKJt9DQwuA3 NXTIMnJUQdPuG0WTU2MgC7 DBk6GRKWZf8rVPjdTuCvRH JuYmP2DHe7FyVaFNUnUsHy WTBdFBYaGLzlpUQpIQ8ctZ plJCPpMBNjZDQ4GPCjhGCC y2JzLTEoNQztXdQcEQUEAB YMHC4UQbJULXToFqOjiZBz WJ3SRXTewiWlGAnekZgukI 4faPAjB4mkNpXyNirzdDwp TmVzdERvYzEgDQpcbHRycG FyXGxpbjBccmluMFxzYjMw LUJqsSOGe4IaMHUYLiTzAW NpbWVuIEMgaXMgcmVjZWl2 NWRhkV6kIz9dtOUufS2ugV MwVPgzCJOaa6v9pJS0uIRr bSY7xSRfwPrlUqMzDC6puY IoDXJNVL44gULhkiZySBUp dW0tSHHsLXWzCME8hccrQE UFCIL9oFFxa3D9KTxiHCV9 nP6jyYowQuGwA6E7MQCxMW Rkc42kiHI3waAsAnVvYLZy nk2dkK7pOJocnsZdbJuxcl Vtp8A7KDYwg7S2KMTkcfVq bTSwzVMjIYZnDtX3IAHvDn C3IVEcZADdbLQjLKQdTH7a VGhlIHNwZWNpbWVuIGlzIG LraJGuvpUuNFUebk03W9pg MBNrrQ7ok1hcKkUcIKIySL HuyPWgsFI6YQEofP3njO30 yeKictOLVA4esTKfEM3ZID NiMFxlcGljWHNiMCANClxw SMNuQFjyt7KlPElxnRzgAX IgSjRzMXtCjRlsWZEBT3kk yMAvSAgiRJSKFJeHS7VJGW 0KXUDwcIRXWRP0HZ1uZAae FAAeL3PqY1ItkeC2s5actJ vsf4GgzXJmZK3lvHEhHH1S XHBhcmQgDQp9 Disclaimer (test code = [id number]) b1ljdGUnWIDvx7qkSABcqF FuZzEwMzNcZnRuYmpcdWMx XYnhzdPiHEwxo1SoN6YoCh AwMFxhbnNpXGRlZmxhbmcx VTXjZMS0qxQsYEYuUAycWQ BpMFjqQu3fwYTspIhoTlAb XQMdd7fczxRFFJelSfHcV4 93LZBqEZizr8ppm8McQXIn cQPku6V3LQPSelzryGn3cT eiZ20kk0N9DzbrG2tiKYHc IXTkZ5ZeSN3oCULpCkq4KS U9GYU3ZZKcMOSyQ8ZnVC1o TPUlrJEqQRq9u9wrkKsaZA OeNGY0w2oiIKybhiXaMG6z uw5poKk7u0pudhFkWGPeQH VvfJGMNKRoG3DvpIfnLs6r aOr6lLpyBmvqPZB2Coz9UG 8qhv43ksl2rSdaFWGmoyli JpD6INzzLMHpswkwYTh6WG vfMKUwrOD0CCRgpABeO3Es EHVtUZ6sdka4YBR7OWvcCO ZkKwR0MVLzpDAhMJKpbAsl LGlww295VWD9FrHnPN2xD2 New0W4oM3saYZjEBRrrFEr SuByKIOkwl6xoSOaNHzjp4 WnBFY8yhK6qHDiuEAdQPJo TQ71Znyfd3CjIbjst6YcP7 9cgQY5YJhmj5qxCC3tRfZ3 duLvGHera2fgeA9tCeQ3CQ jzDT5bYG6pWGVerH6eehuw XHBnYnJkcmhlYWRccGdicm DiWb4tmNsmIZT9SEthR0ll qS6fXuJ9ZVmvX3chyA5lIS w6GLtifTJ2OVOwfP6sVE5z mqjsc9zaXEndKXdnWFDldj S8juV9KLJinHKkT1QxmH6c LONnUI5wfccds6bdZWF8WU qmJZXlLXM6IhNgSINjj5Wt aot8TmXrj8ZqcRVgKYnxU8 2ht143KGKdxsNsA2tznKDb ftsqtGXekpnkRHpwkqS4VV TpoaQdh3PeVNXeFFP2HYhx XXmotRAmYNKmwAgrt9evS3 RscGFyXHBsYWluXGYxXGZz MjBcbGFuZzEwMzNcaGljaF kqBOsdCpHoPVTdOWhdJ7bx ThClG3NrEPZxQlKwtGUzL7 ggVGhpcyByZXBvcnQgbWF5 OBaaD8v8POAoyvDjhZe9nu ViGoJfAJZoSVK4JOfncROx ETFyk3GpvdlkaKDbPl0zuX WaKLXgfX3ePMRyOIPvCQhd GU3kxZc6MHEKnHMecFYeGd URVEFmRL50pvKvDHPJzzrm f5K3DQcvARHds0VybMUtF0 haj5UrIMWey77gPU0ty9Q7 b7jqLCA2GU3mv9WkDVOkbF TfiDSvQFWrq8Lxwyfil6By NSPwtxOrh3PpCCDgqsZjoY PkBVLyajCedw7ywzKvXUJx SCHdZ2AvzwczzBjnpoDhQX Cveh2wlzBrEEH9QPUZGPWk GQEjf9ZrxT9duMMQZLK7fK Pmpv9kxgEYiQDyNNPvss67 JVDfRH7eF7vxGTQdLISnms QboVWym0WbRGPgtME5fQCi HS2AJgBBf65aILZmZSWMus LdSCKkiEnglRC5pyQ1yP3q IChGREEpLlx+IFRoZSBGRE FkIJ2chtVsv0UiivPgwCjk EQHxoSGat5DthGGjg4RovD zqb8MpnJHnvHItFU8vSSMp clxwYXIgVVRNQiBMYWJvcm A7f6JgCFUpBJGfSUP7dSco jmh0RNQnsU5oKFBqE2zmrw lhUMhtPXXzo8LqfV0vqCNY hWTrw8WudMMawLAMeEIxLL 3jdmMkVIsPLYyPRBH3sdSn AKNfy3RcSZqmE6igC98grW kaqNn4wIK3GDG6mQ4eOaa+ IFxwYXJccGFyIEFwcHJvcH TsSJOnxGeroqSaE3HqluBn pV9esNVpnuSlMT7jHQ5mU0 Z3gMTfDQTeuvKtf7kmWJkt dmUgYmVlbiByZXZpZXdlZC Yxv2NlVEvbCHK0IWnstqUw bmNsdWRpbmcgSCZFLCBTcG XrxCCjUCV7EKlaqsWvaoBf LL7wtU0rzPycnM6ciZMjuG W4ahvrAICtRORvsSjcKWVu GM5rvDfhxT8tYjKhYkItBB dfNS6bEENlK4bdhZSqINSk TAKnE0ryGzPiiV4yaBzwRJ xjZjJcZnMyMFxwYXJccGFy XHBsYWluXGYxXGZzMjBcbG FuZzEwMzNcaGljaFxmMVxk MdCtDBPoTDjqR7jcZlGhX3 ZzKGCqPqUsbLVuU0psOWii NAX4VLVmMK3zeYPeSZ79vW Frx1ycVVfoqFgakn3tX86u aTBiMKwboVchUYYvn52ht1 AqOLTcvoGksg2vIMCavvX4 cG0uQEHoxZtkQNMjeQZyCI Wkv5MyWGjbbWOhodBeRDgh FHXgWRAeaZQvruK0ceDrwc ExvpEyDKZoaOwoCJEjv2Qy DHGqVSgci7Teey2xxMBcFE NotkROzDnqaLJkpA5mS7Fq KKPnPOAmjy6xBRCzoA8wFB eqr5CvgacbDQMsMMGzTFZo xsRzsh1aILLkyMQEVN1PDX bjuDZrp6AuoxXsY9cSBHH5 NUQwNjYwMjgxKSBleGNlcH BpLVFdaw35CUDehO6ivFtn ADWpoT8fmW8giComaH6bGi MmCjPnQHqoNP4gZMXlR4dz dEOxAYBfGUCqA1eaMkHbwS 9jaFxmMVxjZjJcZnMyMFxw YXJ9fQ== Embedded Images (test code = [id number]) [facility] [id number] 19:23:05* Test Item Value Reference Range Interpretation Comme nts Case Report (test code = [id number]) Surgical Pathology ?Case: [id number] ? Authorizing Provider: ?Dominic Keita MD ? [...] HPylori ? Final Diagnosis (test code = [id number]) [id number] FuZzEwMzNcZnRuYmpcdWMx WQonchUgWUhlhPriNLR3WP PhGG7wvStuePt5tWbySKSf ocH0xVXjVMzon7ljWUO9q1 ayucmxUXYrBNglIo1qlRZu jZfyGkQhSOBoQOm3jZ78FY WhuI9upZHsFUm1IZPnuKFt uaMwBxTmDMJtiPZeeCW3TZ TcBA0cdiwgAYvhGDpxACDv tlI9OWBvrBKqY6ZzDPVaQC 6agezrKQN4KKhyORFdPLB0 CxSkIQSor0Vykzn0PuUbfB FyZFxwbGFpblxmczIwXHBh kyXTHxDMVQ4CTSLRPMODE3 qTIAYCTR9JWGVQXdhypAAl RGUpCIJmJCPOZJ2QGVDqK9 fHMoOfLM4CEYHaTKFluVNn KLWuxdGGSfOYFY0KEN1OQF wgQklPUFNZOlxwYXIgICAg MZFyAPkYP3TRZYBoLRSEB2 QETLvGXBmeCp9hYHOHNO9G V7vMI6KAECOLHK9SFMteYC QhBACjRWRjGS4UPRzvMWCX PK7NYYEZVMKNXGpRQKCLEJ ELJDeDLECXI5MYQIrHVNTs oizjLWBaQs5tF1FIFFLZVC wgQklPUFNZOlxwYXIgICAg HQBhBPAWU0VJDiBDVX7FC0 5XJOZCSIAGWA5HSZGWNBhI JM3SCICOTVBDVGKOR9OqmB FyICAgICAgLSBOTyBFVklE EV6FCTWAUvQJRMlWCDYvJA lTRUFTRVxwYXIgICAgICAt IU7VJTbfNASBOQ7MQAVLZr dBTklTTVMgSURFTlRJRklF BQVIEIXLRV2GUf8WDALJPk xwYXJccGFyfXtccnRmMVxz r1OeO1BkXaXtFMwhsyCiGV PsHltznketYCVcQXW5liCe GVFxBIgcXGJsWTmhSc9uiQ YjnYpcEtSuZJXle8kwlxDT MQqrKvUmG655KBGbTGupc6 ced2NvGSKbrGIgd6O9PZVB ldzeoGk9r6acSfShKmR9rF XxVWihN7cbzzHbdTPsY1Tx eXComVp4vVsrG46eu9Q6Ny naS3nzZSVzAWNmH5NnCU9v VRVcHdz8VCI9QMU1UWYrSM EeG1VyOW0aYZMzqSWiTXb7 o4ktrHoxZETrMKX5z2qiJL xaaoC7MA1ibg4vuLz8k8bn czEgRGVmYXVsdCBQYXJhZ3 PnzNoeGc0jyRl7sDkbBent DPN5Imi0CD4ylv48msv3eV nrJTKpfddsSxI5TTdaLSLk hftqLRt8UOsqWWSevYS7EF DppMScJ1CuQBMfWO6lftq5 UEF5LOedEADrJnX9ERCmoB IpLDJusJxxHQufk378UHC0 StGgLK3pB9Wxq4I1iE9zuJ HcANXbpKGjXpQvBIWlaz7o gHQmQIugg0IvKFF5ajU2kX IjcIIjQHCnSH70Meviz5Ve AofdRDF1TBXzriLzk8Hrw4 wwHtXuoyEbY1raU1WtBTKl BUDjQTAhVuLirzLbx1Iif2 HjxFRcsMg2q2xbEFQqFUNb zUpdt1eqDJG7CPGnH9H0gS Iyf3ozUCtgGOTuiHH3flZ1 HUPynSZbA1FtgQ2fBFIvMU 4qsmg8i7ftRRR3FYnoSYUn IiV3foI5VTQvbSBiLCIxwN kjRTnct942LKJ8PdHaWUQq v8GbK3YbpXdeU52rpHyvR5 2rPADwnCvaxT0vgKaiwD1v ZjBcZnMyNFxxbFxwbGFpbl xmMVxmczIwXGxhbmcxMDMz UWtaK5glWhPcONRbmFxaHC foa3UcAFGbGULlBfxmaxBz XHBhciBJIGhhdmUgcGVyc2 9uYWxseSByZXZpZXdlZCBh nMrjj3QaO2huCR9eT2NxlS XcclNcpnBcZNegGYNnt7b0 qWSyrFlub9IudNCoWV03nt IxZUDkBNY6XHFfo5eiSO55 mfkwXkHjwS16psJhhoXbBG Uwz7bcR0sxzZUgw1Gyt1Qq fmIfOKwjc3CmUO0lhEEmjh kqmCO2DSLhdIUfymIryiB7 tMtsSSRdiE0gaJ3viWfyjI 5lPhHxDkOgVBiyDM9hPFEd T6yvpXLaHKBoUMFsN0jbYo DfvM6fxVnmOnminqD8JRPm cn19 Clinical Information (test code = [id number]) Shivani Schuler is a 47 year old female with IDA1. Gastric polyp x 6 r/o adenoma2.Duodenal Bx, r/o Celiac disease 3. Gastric Bx r/o HPylori Gross Description (test code = [id number]) p3ummYJtZAHwnCPZGZM9TK FoGT1scLydvWi1lVbdUONi opG3yVMtLDyjp8exGEB8z5 qpfhYCXjiqOENqMT4iRZax YFKwAV5bQpByHBTjVvLqJZ BhcGVydzEyMjQwXHBhcGVy cJF7XPNpQI5edvxaCSjlUW nxGJRmjaO0NSKwqRLzC1Hu VDKxPO5jbmdkLMP9ISXZFw zwNq3ytKFplZqnQdJwLyGn YXJzZXQwXGZuaWwgQXJpYW v3hC0GCkhhGIM8CYYLTjsi BiwuxMbfn0KdmNFyEPIiSG xcaWQgNTEwMDAgXFxkYiBP QpLpTgG1Vba5MVY3XyF8IE y8OHVKDPBtTumnLAF1FrC2 XLe4AWOrFF6iWVxefFQnEQ daWyddLQdnO218IDdrJVCt P5KkL0XpJZtoFmGdZAdqBG CjVUXsBYhkRLObL4EDDEWk ZRO0RqLlJLKkWQc1MYxmH7 UQAAPnEGBrDvH8SCOrVsW5 UQg5YBGEUs5hURriKyBjGH m6ODU0ZKc9AmGeZHGyAuBx GEAgDQVsKYzgsXLfNE4vkY fmSUBsJX1XYFMtWDpkOKOm BeHsQ0IZN2xBOV8gXNdwaR JjaFxmczIyXHBhciANClxw WAIzZC7RLTByYYouQIc4ql DfUMBjSsUbGACdM65sk5RI y2EgTF2KGBg4maTxczfvcV 3sPGYervOsEGrCyGYrsN9g bjMRIYfrGXUkA3JctyJnJF etNJDpvc2ywXchTOhjLhIo bGVkIHdpdGggdGhlIHBhdG maabFqL9N1spAnHU1cZVHC MARptX4rSCTbXSDds0GxdP BeqQybR3DttPQgDeUwt4i0 lQW3WBRunnJfBZRnbQDaWF Nmnp5lURrjCiOmG4L4OUHi LZZot66jnPF3sqHnOcEikL y1tXRsAFF0QO1qgPtcnkZj r5k6cA4lCXXfp4T9JJSyn7 U7NADhykJkxLGqfXMeAQVl AH1uxlYlFF23WNHcMKdzXZ psXSA4HPT9HOYvpUUtw1fr tebmTs3gVHwhOM7qLCmlQJ 94FYFoVFiqSFUqM5VrC9R1 NGtcDYHyTDFbiEEgiU7fgy RyyvGrmXz0GZNcZCZ9oVVv hMtgNNYuWyvyiGI9WIWfBc BofzWks1JvrGn1hCKoBEfr XRXytZ9ixE6oMRYhFPLgup SFEfvpXPRwCNkwd7VaGDrc cGljWHNhMzAgDQpcZXBpY0 7iw4EZa0Ovb6wqqTakw3Zd lBAcEB3avGLjRB9Ui4bnJG EirQDkYJW2SQsta9uqXJia MPB7AGNsOtXiPPNpCU0QYw FqWOwlFJl8EHhsEOm6VZs5 XH1ZVfEzZDNsAqj2GfU9Dy EhENg6SXlnOH6PPBX6VEPj DEPpQHpoSHG1HUSsDOr5MI IgXFxzcyAzIFxcZmwgXFxu I46ofZUzQXuaNjZtCJgzjC pvCLEoFIW9QF0RFIFwLcSd A7MRG0tYQO4mJmfvvqNzDL HsvkMKKzrxBHUxMS2POUNn BHjbRHp4xePaZPPfOoDkET SoA77uy4HGv0WtRY6DGLy1 khYliwmucF4pFNKttgBko2 IzMFxlcGljWHNiMzAgDQpT qHKwwO8tjfCUPSajGNIaZ8 WlwaZkNFkaVAVlsx7bbPtt IGxhYmVsbGVkIHdpdGggdG krFERqaCexfbKmJ5J4yiAw JD3gJIGEBDKumF3nFQYpTI BvUZAlYCJdrX4dAYN0l2Se lzOhISHPGIBouAnmHY57sM BjZWxpYWMgZGlzZWFzZSBh kpOyidQth09qkqUjp4PkHC 2shGwiGJlVXNzbVaPsSV3q KPLxksUzq9ViVJ6mCZLkcR TrZEYnnnthwDHmGAx9jZKj RKDlVxOteDkoc3VcEBCcOH ufCY37stCdDO7pJVokLQ4o LPzdTD8dCCNvRSGyGJCoGt CcfNSfWwJgmXJbXrFiZ29l HvDLyHLwe4MoJ7vfXQ9vhV WvTmbprVKzCFVzpQbmg1Eo hEBhNVRna9FvsNOeHFlfVJ 4rBVM1Hk4wdHUqFBKejgD5 e7JpXNnjERUrXfsaJTKiTK rgu6ZjBIOihKGIk3UaIW5E XHBhciANClxzYTMwXGVwaW ZPt8LjACECWaezjUthPcCe nBLiVrU7QQHupGNhRRH2NH 3suRvfTUFtWCw9TSomMLHw V9MaS2EnGNyiAdXsOGhbPT OqXMMvTPvlTJYsO0VJQZMp PYW2RxQhXDGsWCz6QIzxU4 YLKDHfPVSePfS6MTZ2XrP1 DGm3OHFPLq5gSZceZpCpMU XqIxR0MYr6WlFvTNWtMoSi BXYeTASlFMujdZFzQI0sbQ koHCAwGJCpICC7ZWFykENC e0TrVJLcNPfhErFhCWDRSC TZEX1FVyDXSLRcOrVryLUq ZR9TJWPfbdXlATgzeBmmjM 8qdTOzO7hwJmOtTzuxvUey TmVzdERvYzEgDQpcbHRycG FyXGxpbjBccmluMFxzYjMw FMBngXDEm0NiJVNAUyXjJM NpbWVuIEMgaXMgcmVjZWl2 ATYteS9fUo2zuCGtlJ5kaF RdNRjiDPVyn7k5tHN5bXTn mIT1qQVakBpxDwXiXU4pyI WvRABSFC12cGVgcoThKAVi jM5uALOyFWQjOTZ2tddbBD DPIIS6dLUhv8X8LOtpWJF7 jZ4etIvhFxSeO5Q9NLUhUV Fxb34srGD7mlXzPlXfUDMk mt2zpF4xYXnrtmIacYuilt Prl3P7CLJkw1I3YIBiiuQd lTPusATlLLDnSbM4ZUUmBy O9ZYUmKZKcdZKqMDCnWS0d VGhlIHNwZWNpbWVuIGlzIG MqsCLvnwObQMMzdp99Z5mg DYJzvT8pv0osPjCqVGRaCL FhsCCrjNT9PHRuqU0tbS94 gtAxaoTJLS5naRRlCT7BNJ NiMFxlcGljWHNiMCANClxw TJKuLBuqj8XsQXreiAvuPO ZfPwYqMAvZcJpvDNOZY7nr sFGwIPtfJUSHKGkUJ4RFJB 8UGAArjJFUJDH2QE4iFAuo WJMgF5CrF5CkvdB1q4lmaZ omw2DqlHZpTB6xzJPpCV8B XHBhcmQgDQp9 Disclaimer (test code = [id number]) t4spxUEdKJCgu2kiWUQmbI FuZzEwMzNcZnRuYmpcdWMx FJzumfEpRBvjn0FsN1JvDl AwMFxhbnNpXGRlZmxhbmcx DFIcRBH3vuGzJBDpJCmcUF JvOGdkDd7krGDdcUysLuSc KGNdv0lbpfCTOShrEuBeP2 75NLGyLVzxi4foy8BaQMFp gPGvf8K6LBJDgqldbFi5bE kfI42bj0H9AqbkF0nkVTXx VXGuN9ShEZ5lQIPvHbi7UV T8KGW1TQYnCONbK4IiKK7a INItbVArFDe0m8npaEjfGT PjIYD0j1olZGxfhsNcFK4h iz4ivTl0w3tgjtBqUZPtBG XubWAZHTVjM0WtyWlcRn1p aFr8uRqkLovcYVN2Uxl7QE 2sze22fwx4lThnIYGnzoqv CaJ5MWraVIRaazbyKGy0BV lbTJCubUQ8CQMmkTPlW2Od LSYmJZ3hvtr2YQK7JUkpZY WpKtI2YQTfmKEoOYNloZde LBmwp246KDM7ZdRkLU5cA5 Mhm1E5rP7ogSWhXGDcxPWp RdMhULLmak9umLLtDLbke6 CxWLL3xfD1pFAbdTLhHXVn SU65Pjqsw5LgXvfnb7CgA0 3ubPX1OHais2fsOR4uBnZ2 jsOlAAbfu0lwtX7rQkA6WZ pdUM2sUW7aZBJusW6gnhyh XHBnYnJkcmhlYWRccGdicm ZkNg6rsAtvHWT0RRvvF2re zU2pDvV5FEzrG3zgeH0yAD z2LNjkfGI7KWXsxB9iDN9k tlccm4xuSZlfETtlJMLyxd C6moB8GJBtbWHlW7WrcY2v KMGzAL0dsnjfo1fiQGT2NV neMRQhKRR3HyKsOSKcm7Zs yoa0EeOaq1EnaFTiHVohB9 4ji558GDGcgpKmV6dguBGv waejmAAxurgdLZthlsS5UB FrrqPvk1SxWELmXOU6IJpr HNmzcGJuKDHxnDgne6kqI6 RscGFyXHBsYWluXGYxXGZz MjBcbGFuZzEwMzNcaGljaF vaAJiwJbYrQJHwMMjgD3fp RyMzT8RrPDBdCtStiXFrW7 ggVGhpcyByZXBvcnQgbWF5 VRcgU7m8OUJtkxDhlFc5ng LcKzWzNRRdGMY7PXklvSGf FLXpl0WfefzgdLYaGm0phH HpGRYvzC2wLYGvAPPlCIrl UY5vnEd7OHQXzXOpgTHqMz EGGTQdPU67aeGcYDAUogcf d2X0UDasLKNol7XkkLAjP3 plc0PnAIZrs06wBP1sa8P6 u9gfSMX7UI7ze9HmCUMokS DdfZJnLVWst0Ycinpdt4Ew HBBcgbMiu0PnTRNnalStrB EqBJDniuNazc5sojNyOQDu EBKiF1LynaguyCfgltTsNP Qsyb6jxtXyOOM8EECDQSHi HVGen1IudP3saBKAPHP4oI Rbke4ketOQfENfKXMpfw09 BJGoCY8yK0zoMSCaVMCxsv OkhZQps4PiPZQnbNQ7oSFh HK5KBnBGc05xWHNjXKZRxl LgMXBpqKaopJZ0gsX6yL7u IChGREEpLlx+IFRoZSBGRE RtIT5ckoVmd0RojwMwgFai RYUvdVXoi7WrnJOew7CvtC kih1PzfYVysOCeTX3oGTEf clxwYXIgVVRNQiBMYWJvcm I8k0RhSXJqZFUwVSU7kMsb zfl5EJKizD8oRYVlW0vrcs rgVCjrVPSdx1LstT7unSZR mGZcv8KdmJFqrEPKpBLeUP 6zjhDzDOvYOMqDKMH8mgAe IGSvb8PiCPdrY0zoB11hjK sctYh2hLW9XUT6hQ8kXrq+ IFxwYXJccGFyIEFwcHJvcH YgAKHsjGbksdMnQ0EetqCb yE6yjYYvhyLxBW7oKK9aH5 G8iVFeLKEkbwBwq4uwHVik dmUgYmVlbiByZXZpZXdlZC Ads4TxEBcwHNU6CTcrzoUk bmNsdWRpbmcgSCZFLCBTcG XffTGjDHQ5EYwnocQsdaSa KZ7lcE7qkWfpbY6caYPytD F8muadTALaSPJkqXpaLDCb VI8azNkcsB8oHiKpWwTvGB hjDM1uGGNzA0fflNSkUYMm BXXiO8lvEfJwoT2nkNebAP xjZjJcZnMyMFxwYXJccGFy XHBsYWluXGYxXGZzMjBcbG FuZzEwMzNcaGljaFxmMVxk WuIgYRIeVNmlX3ybBjXmI4 HdJGJjUpCrnQXbT0liBVfp TGU7QXLaDK8nbOMvJA90lR Sgr6ikEForbSaomo2gK93v mLHfFPsogOqiDYJco50jw7 FfZHCpnfGhnw4zVEPmypH9 zR9qPBXbrXeqDOPshDDhXM Zde8YiSOpxuZWlbzRqRTib OITrGEAcoHGowkA7dbKzyd DuotSdKYEwlMqdILAzy9Lc EQMwFKfok6Wzqz2tySSzYK EfurJMzRifiYLyrR0eU2Rm NQItQXKckh8pXTWdvW2oCI aqt1DcykhtBMFkGGBtPUCn eyMzlm3sQXKdaZVKAU8AUW linPDec0QxkdVtJ4bPACY6 NUQwNjYwMjgxKSBleGNlcH RuJDDmez09JCQkwI3hnQla HWBveY1tqO2hgDctsB7dCo UzGvIcLCmrBM8xCEVrK3on gKSiACXlOEIdE4ffZcCpcQ 9jaFxmMVxjZjJcZnMyMFxw YXJ9fQ== Embedded Images (test code = [id number]) [facility] [id number] 19:23:05* Test Item Value Reference Range Interpretation Comme nts Case Report (test code = [id number]) Surgical Pathology ?Case: [id number] ? Authorizing Provider: ?Dominic Keita MD ? [...] HPylori ? Final Diagnosis (test code = [id number]) [id number] FuZzEwMzNcZnRuYmpcdWMx QAkuakKsNTmgmCzfPKS9AF IaEV7rhAondEo8oRsoFWXu ekX2nQWtMZrel8fpGHE9x9 nhdpckPVUfNVhdWi2cdSBk cZrrYsSlQSRvFHp5xA10LO EztC7tvHCfXGe3GKEktCHi ylDyAnLqOMPlfZUurOS9SU GcOH7esgyzRDikEBfmXKGk naL8EKMxpDAkR4MeNSNaGR 7akkdtVGD0ZQjeOFAjCOQ3 RfIwWCOvj7Neori4XmCbdM FyZFxwbGFpblxmczIwXHBh raUDAlGBRT3GGECYMSAMC1 eEZWBKGQ0AGYADTwubuKXn ORJyEUUdGBMZMT3JIZScE6 yNDtLySZ9BGHGaHCGexGJs KHHfcuMRZiWRZT5NPF7CIG wgQklPUFNZOlxwYXIgICAg CCWwOHrAF4WUDUJpJHBTU1 DTIExMBEizHf3fERCXUR0K H2rRQ9FTKAPNDR2OKGjbWR HoBZKcQVItSH2KJEuqUFEO WF4MAOYDVARZZXuZHNWKLY YVUGiECPHUF6WUNXcGLIPo ihwbEKNcIt7xN5IWFBCXQE wgQklPUFNZOlxwYXIgICAg GUNdCCEPB5OYIuYNKR8AF7 1UGDOUPCJTST8OLJNNGTkA ZI6CUBLPCFDYYEJNJ9KorU FyICAgICAgLSBOTyBFVklE UG8XVPBSUqVQUPnDCYLgDH lTRUFTRVxwYXIgICAgICAt NW3DMGhyBPYGIU8WOWWMDv dBTklTTVMgSURFTlRJRklF ZZWNMTYCCG7WZd3KNYHESv xwYXJccGFyfXtccnRmMVxz v3MmA6IxMqIqFMmpniLeTX WgZtlqkbudBFHnDYM0akTo WJWhFPucUWVaNUghVs5wxP KjfRluLjJuEAYza0ovjwFW QGjaSsJiA340WKHzCUfpk4 kvn1HmWAVzxJTof4B9PUBR dgwjtPn2p1hyDgXzBmJ9bH MwXGxuW4bgetGhwPNaN7Yp dDFheGx7pDtaY96sx6F8My avT3fuEGKjAMIfU7EgWV9m GBXuEyw5YDM6VCC0AXEcVC MaC1GpSF2wJEYkxNAmPBj3 a6ounEeeEICwKHE5w1trYU cndvS4HP4zcs0ahGc6v8er czEgRGVmYXVsdCBQYXJhZ3 OneNoaBd9njBh2eNfjEolq PQV0Npo0KO4gqc62yza6cJ oiFTMcclvwQrX7HNqdIWSq osgnQBz7WGkkBSIocOY4TH QvkCTnL8YnJVDfTV0jnol3 TFV4HSdsAWLbViJ6FGVkeT EjLLXosQaaCNeik649HEH8 RnKzUC7tB1Xvl7A4bC9lfW YbLCQaxMJyJeMhJFQomt5e aJJmOWyvy1KrFRC7nnB9bR GksTQnEERnNS41Nyspz4Cl UyacQRR6RKQqxbAst5Lkw9 anZsHcguKdO5esY0WnHRJf HCZmXXXsFrFzhcVkc0Wsl7 AjaDZlrHt9b5xmCPBaUDXm nHiux2dpTSA9IFNiR0U2mF Sif7dwDStpCSJsrBY0jzW9 MBAvnHAzL2AobM6cCILaCJ 4tnjf1h1bvTDU8ZVskFAYa TjH9uvC2XOLgoCFrCOEgmP fkHSeeb748HGB2YjEpDUVm m4RgK5AfpGqaK59chIghW8 6mHUAjjOylnS0yyUosiK1n ZjBcZnMyNFxxbFxwbGFpbl xmMVxmczIwXGxhbmcxMDMz VZcmA3ggZnWbLOAuwImdZG peq8XmMFRsEGCxLtcdfyOv XHBhciBJIGhhdmUgcGVyc2 9uYWxseSByZXZpZXdlZCBh zLgbz4XlH1hcKF3hB2VkzI VcmkZbpmRhHZqrFOGdd0l4 lRFfxHskn0HpmCGuCU58rz UwSMPuADX3CQOak4dzFM30 ldyhWrCtaH60deBzzgJiEY Mng3eeD6jlxRXkd6Fxo7Hm vtSaUYhcp8HyHU6jwNTzom vhvMA4TZItqYMuqbWkvbR6 fFphWBDnbD7lpP7idNuuhT 2dXlAgViUeUDkzKN1fWPSh J4xemCPjROTsLKBvR0tqEy EkcW5onAlfQvvnhhU5KHKm cn19 Clinical Information (test code = [id number]) Shivani Schuler is a 47 year old female with IDA1. Gastric polyp x 6 r/o adenoma2.Duodenal Bx, r/o Celiac disease 3. Gastric Bx r/o HPylori Gross Description (test code = [id number]) p1fzaYGiVXZitHXSLCS6HY YfUS8yzOjwhGa0tLmiBZSg vrN0uBXvTRxmm2soSOW8b2 epigBQFpfmNBIqPH5oICog HXNqJV4uUsNpCNYiFxPeSL BhcGVydzEyMjQwXHBhcGVy iTH0OJTdSB6yxjatVLjkDU hiBVAyffW2JHQhkHIeP9Gb YQXoZJ2wyoqwQUJ7ATIENl weDd3cjHXerIofSmDqBaYn YXJzZXQwXGZuaWwgQXJpYW n9xE3NPafbXAJ9SQKRKfrs WqwusGucb0CcnWPpXFGjJT xcaWQgNTEwMDAgXFxkYiBP EqKmRkA8Gva1IBA3MuL7MV h4NDITZTQoDbbmUAT4GfK8 KKz9KGNcOA3iLMrxzAQzED dgPmtpHJrzI841BVsoEOVq U0NfX1IbJLczGzOpFQvuEQ ThQTDwFOceSBQiE5OKVWHq AGF4IeEjVATrCEd4RJnpF5 ZAMMYnRAOsQdF9RNXtQdF0 KWo8ZHGPGn5kWVzdIpCzTK g4EYL7IOd6QgPdUZKsBoGs OUOkUENxGSkmpDLjGD3ocG jvEIJaRE0AGOBrSJdvWFRt ZgCxG4NML2oRIL1cEHrgqM JjaFxmczIyXHBhciANClxw NCAnQL6KGSIlOXhaXGh2ag SxOUPcNmDzBYYhR19od5TE v9RzZD8WHJi9wbLqreoalN 1sQVKsrmVyPPzReNQfxC3y jjEKZUsbIPTeM4MteuYnWG elJMNvaz0lnEilVQpjQnGg bGVkIHdpdGggdGhlIHBhdG guiiQzM5S3qwNvQG7tTLDB NVZwlF3iRCBdZJOiy8HemG JefLahN9HihDEvFlXvb9m4 iFX3ZIKffdJsKWNmjKOyGX Glob9cFTfqKeEwF9U6CGRa DXDwq11ufFJ1rqHaVdSsmW h6fIJaOGU6WR3srFfychXa q7g0sS6zIZOsa6U2LBWas6 Z7ZYGjyyQbaRFdaKVeDWIy PB3gfuDeBE66AJXpDVczAD idEAV1PLF7BIAztCBrm1zz sqhiZb0fDYflER6yHQxrJP 33KQFhTYfhOCPdO6StW0V1 PQnkMSVyAYDomHTuuQ0qfq MpewQcwSr7QZSjUYD1jTVr qBuvIYWjGljpxIU3YNHlJk IdzeRly7ZsbDw0rTZzDCyh GNDimZ5aeP0zKLTrGTScar COFqgtCQYmKKswr1QjDHox cGljWHNhMzAgDQpcZXBpY0 0eb7WZk3Hcj4dcvFacs9Fy gWNiWK4hkCOrDE0Kf0chNJ QwyLFyUIE8CEyns8hzODdc MOO3LPOpXbYvUPFuTW8FDl SvWTabGPy5YWhaQYx5RKc4 QU7YVkWgPDDjXzp3NdQ7Hg LwXBb6UUtaMK1LUCU5OHCg MSQjQScqLYJ4QLYoHVy6UB IgXFxzcyAzIFxcZmwgXFxu Z66pfPCuYNujUrJyYTsanE feIAJnAXV5DH6LJZFyAcDe A8ZAO3cTSC8fJwseguEjTL GlpzKBMnlhUCRmHD2CESAc AOnqQOi9dsYuQBLrLbKhAY NsC12eg8UQu6VaTV2CIZp9 ryMzhsyloO4lCTHxrgFel1 IzMFxlcGljWHNiMzAgDQpT pRUxfF4xjaUWEIoxHUBmI1 RmceTcSOlbPDGipa4vdKku IGxhYmVsbGVkIHdpdGggdG qaPQYfqXqdiyJkO1X5oiNb ZU8bUXMXIMNlrS8oVEUvPF SdBJLoRUOisO0wGGH6d4Bh lsAoPWSJUBFilDxtRX21fM BjZWxpYWMgZGlzZWFzZSBh wvRhgmJfl80xcmNyf3DhAI 9hjPeyPKqVRWamRmGeXI3w SRPxpgVpn6IiZF1lDGZcjK GkARNjrvzteAYdOZz5nTKl LCZkYpTdfJymz3CjQLIbMM neNZ78hhTxGP4uDDxqHY2y XDkoTB4zRGOlOZRoUYKpNa LtcCZaUxVxcKGxJbAhZ45r KtDXcXBnt6UoE6kkTR4krM RhPwsotAFjQFZvoTcpg2Wa rRMvOLOmr4ZwpCTtMAazGQ 8cNDG5Jo1eqSKaRZJsevZ0 u1QfUXwmMETyHpjfWHPoON ril2WmKZVilGKLd1RrPJ5V XHBhciANClxzYTMwXGVwaW JSu2MmTJAXSaemzZugTqLv nKTrTzF1XNHdbKWiALB4ON 0hnNuzSUZyJGq2ZAbdOJSp I1MaE6FvSInfQaIcICizEC SdMIBbVHhoTDSoM1UQTZVq PPA9EeMjQWJwXEc8FDlyP7 KVNAFyYZXrZmW9QME4EzJ2 WCn2CSANLh8mAIcbEgEbCL KpAuT6DDa3PaBfWQJuJhJi ZRPlQYKsPTydaXAsGS6slO gyWBIbOAJfIUY4QBModKTE v1XqELYbRWccYpZiWGIDIG NVTI7BMsXZAVIfMeXryYGp LQ1PMRRaqlUxHYyxqJdfrN 6aoAFyL1imIwYeMvnbzOpo TmVzdERvYzEgDQpcbHRycG FyXGxpbjBccmluMFxzYjMw LOIdrKMLx3WwCVSPIlBrZG NpbWVuIEMgaXMgcmVjZWl2 AWRxmH8fIy8taSKluM3ylI MwPQmcSSLvp7c9nCG7kSHg xDB2aLZboRvgLwEtEQ1mlK OuUAVTGC64tJEcapDcVSNw iN5rETCiIHXlMUU7gwrxGA MUHYF5uMSst3H4MJzkDOZ2 hK7qsTcwUeIdO4E1DAFdNC Ous70ftGZ3oxWtUzKgBXFr nv8cxB0zJRilmhJxhLvihx Vrk4W8TCCsd1U9RPZmiyVx xZVlyPBwPJAwKnG7NWMoMf X7JUQnNHQvdHUyCGUyBR2i VGhlIHNwZWNpbWVuIGlzIG NjsRYekuSjHUSwmw03Y6ki GDOsuI4mc5fwDgOfYDSuUQ RenXUiaTN8PYItwL7uhL37 ocYixtKCOG9vrTJzWO9EIQ NiMFxlcGljWHNiMCANClxw URCfBGkur8FlCJpcuFrcDW XhHdMzPDqEkMvuZTQDE9bd zFSaFWbdKWMKKCcYO8UDTZ 7VRZOqxUCSXPF3HZ8rNPfv IZByY4IlI8QrzvP0b7tulJ rsa0TaqIUaRQ1tcHFuEV7T XHBhcmQgDQp9 Disclaimer (test code = [id number]) p9vpaAAdMKNmn2kaVGNjvA FuZzEwMzNcZnRuYmpcdWMx MZqwtyFmKMblj6PpS3WfEi AwMFxhbnNpXGRlZmxhbmcx XNPpZRH8yjWuPXOpBVfySI AwLAegIs3pqHLmkZhrIiWr JJTzh4sngiKYRNeuAsNdY1 37PHNbNZpph6wsx9NrDSAu yKPrn3K9JITYfbggkHd1qC prK13nn6X7HltiC0djPCHr IPSaW7RpAP4yYTZrCsp3FS P3CWA2HBGnPYReJ1FkAV0g FGFpbCSvDJe2i9khmVdrZK OjQCY8d1kqODuzdzGyKH0d xd6cwEy3x5mzdmUsMVBpCZ QztFZUYOWkC3VaxLjeZq5l kJq1iDpeQvtjUNG4Vxt2ZN 6wow15jjc5xXtsTGRbrzhp OaB3YMohCDVwtglkBNa9MW zqWBJwkUZ2WWPnnUFwV9Nl QAPhHI6sihm5DUD8MXkqFI HbMqZ1PTUpcRXbGVOltTds EJrzs552JAX6VcRmCD5uX1 Wmv4R9wW5xbBNvXICynSLa CyKtEUBvwx4tvUWuTXjpd0 FtMUM9saF0tPFusDCkMRUn TD79Idpum6SnAbdcs4GgA0 5wnTZ4NRjzz9mvYZ4wQwQ0 mqDhMObdp6bhdL0wMoV5TB ugST1eMI8zKIAqeI3ivxmr XHBnYnJkcmhlYWRccGdicm VoVl3siSkoSGK0FOycH3vn oN5aHyC3HZreX9ocpX8vYY m9ZIymiLG0KNPfkP0tNO3l utocb5etUAalLEktJVDtdu Y5efG5WVGwxVKkX3TdpT6z VJYbSW7kbgrwx4ezRNZ9XI uvNDStDFB7JcPmYTYjo4Rj kwh4NxYgn1OymEHiOVvlC1 0yv526CNUwkjBiE7lvqGNd edymbCUndsalNYaurwH2GR ZbmdEsg4JkUWDuILS1PBoi HUcnlGIiJVKlgAyrn8ywC1 RscGFyXHBsYWluXGYxXGZz MjBcbGFuZzEwMzNcaGljaF dgZViwPnSpBQRkNBvuA5jr SvIkF6PcRLXnXuAwfPKlQ7 ggVGhpcyByZXBvcnQgbWF5 AQglM6x1HYShouXokTy9kf DrLqQcYXWbDCP8HGpafSHc WAKju1QztzdqlEMhEv1wnB AdERTobT9qVPOjXCHeKZfo MY6goOn9DPVJvJMemFWqLt PFOAFuHP23fdJyLGDQnzwg p1I2HPctPPVto1GgrVObW6 wqq6IrWXDzr37jIJ8yz6X3 e5owJMM1BP6cf8ZuJKFpaG RmfVIlPDKel0Dsovcwo2Ps PNZnetJvf7RhGAFdloIduV UvNUPzyaThqs7aipXoNUDi EDYmD4GyzqayhFzpsaQlXI Uitz8qcoXhLWQ0WTMHACJk XREni7BlhM3btRQCUSN7wW Klfk2qkpGPnITlQJRmvf56 RXJiHK3jQ6huTKDvNKTtzw XcvMPjz7QyLFTbcBE1rWXk XS3VTmWEq01nJNOaDTJHwa HmSADebGqmlHE3zoM3kJ1t IChGREEpLlx+IFRoZSBGRE QiIY9vsmEsd1YfigNdqCrt ABDrmYZfj9NiaOUvd3BkzM bxu5OyzCWwrAHuFQ3yZFOr clxwYXIgVVRNQiBMYWJvcm M6p8IkQACpSKOmZZN5tBvx vaf8BJTttD6hQLRaG3pzgy hhQLjfLABlx0LesA7cbIFI iEYrp4BruTBvcEHZuALeHM 6ngpBtCSwCYSmTZYB1epDw ELJaz8JvPWyyL1niX71ioI mkeKg5eEY5VJE7mO8tHkj+ IFxwYXJccGFyIEFwcHJvcH UuRPGloZljmqJtH6WkdpHw nE9vuOObxgEkZC7hJG7rP2 U1kWVmOXVrfhDkx1zaTWpc dmUgYmVlbiByZXZpZXdlZC Udg6NqIUypKVH5ALvopgYr bmNsdWRpbmcgSCZFLCBTcG ZemCCxNHT6MPemheIowlYn VR6rcX5tqVzckB3maEBcjZ I3gxvhRFBbYCHqiZteIGJf BJ2syZlciR6pZuLeGhQcPC icIF9vSAQiH3ihlWQaRNQo QPNrR5eiBuTizW2vwCmnLP xjZjJcZnMyMFxwYXJccGFy XHBsYWluXGYxXGZzMjBcbG FuZzEwMzNcaGljaFxmMVxk HqBcQYFsNRvwJ9oxWnEaX6 FzJGJeLiLtfBOiN4qwYFso OMI3RRDrVA8mxGBtLG80yY Klu1seKRneiNwjsa1qR00x mWCjXFbuvJqlPIMyq57mx6 YkILYglsKluo8aICJklaT3 uD3aTRDkbAfuQNCjaLDuED Jsi6VkITmgqDTlpmZyBTmg INKrAOMqoQPrwkA8bqJlom TxegYdPTRfdAdvJWUro7Oc BATmNHalo5Dnla0nuNYyRD XubhYKuScqqLYrnG7iT7Jb FADtTIKaca6pLIAuhZ5qJQ omy6LcuuxzPUUqOZXoINPt eoVcdz0qYKQujBCHFA9YVJ qqcPMhk4ObizDuB5wHHSP2 NUQwNjYwMjgxKSBleGNlcH DfZAIvcr60WTXjzV0bzTjr LJVnbM8pgJ6rfXznsV7tEb FaJyLeXGcwSW5gYOGsB7ec iWTbODRhSLZsG1xyIbDrbH 9jaFxmMVxjZjJcZnMyMFxw YXJ9fQ== Embedded Images (test code = [id number]) [facility] [id number] 19:23:05* Test Item Value Reference Range Interpretation Comme nts Case Report (test code = [id number]) Surgical Pathology ?Case: [id number] ? Authorizing Provider: ?Dominic Keita MD ? [...] HPylori ? Final Diagnosis (test code = [id number]) f8veuWEjLABxh7trJOWwnQ FuZzEwMzNcZnRuYmpcdWMx OLsmucEkOKjxaXihURU5PO WvPG8ixVrmaPg2nWwnPMMf ndL8fXBtYMner7tbXTW3n7 adpozoOLWmWRfeRp8nhQTw oUjyFxOvKPArKVj7gS25PN UgpW9sqJBaRJm0VBQqjKIe qbOmYjQwXKRduAYgzEA6US UjTU5llccqXPyyYJlxIXPo ehL6KAMudZNwT1KjKLTxCE 1haytxFGZ0DFuzEEWrJEJ5 ZqVtSFRub1Bdbzu5FbOtvO FyZFxwbGFpblxmczIwXHBh atFTTuXSLG1SWUYGHACVP3 cHHXQLFD8UAWVVSdgsdHOg MVJeKEWxZTQYXG9RITDtE3 uMHbZwHL6GISZpVJHfkVFk NVFwhaIDGtARCS5YQC9NHW wgQklPUFNZOlxwYXIgICAg FOIaJWrSV6ANDBSgSNWIW5 RSSPhIFNrfVk4gJLFABR6U P9kDR1KCKWMHCZ9IOQyvGM AdJNWbBJZvZI0QFMseMTUR CR4ZEUUPGQYHLZeCCSOBJN XPFJzUIHJPB5EJIOlAKQLz zznaNGEnWg5hC4ADILITLY wgQklPUFNZOlxwYXIgICAg RFMbGLZHZ4OSMbVPHB8FB6 7HNIBERXIKFR2RMNHQLLvH NC7YQEFLOXZFXYCZD8MihJ FyICAgICAgLSBOTyBFVklE NC4KKNNBByWYIQwQVZCtZB lTRUFTRVxwYXIgICAgICAt DP7JSQlyBEIMDM4EUJFXYy dBTklTTVMgSURFTlRJRklF FIRFMSDOFQ6VNc3EWAFTSw xwYXJccGFyfXtccnRmMVxz p0DkN3WwJhQsWZriasGkYE OiEwdrgqfxXPGvGUM7ejBz JIYcSNliKRAhSXyxCd5jlE ZnqOxcWrKuWWGyo9zjcvVI VUxnPiHtY812PYSwUVhqr0 drp8BeLWVqyJAwk6R5TPVY fqfdpBq6v2xxVpMmZaX5vI JsHZprC2xvgaBknSAsU6Gt dACcmHw4wPahW65vl2T0Lz nhW8msNMRkVFSaK3WhJO3p SKLmEhw3DAD1DEH5FBDdPW RiL0MvLY3lMDSrxVTaMWh9 z9zrvZtrCGWqQVK6e3azQJ sjcbR5AD9isc0yuHv5k4en czEgRGVmYXVsdCBQYXJhZ3 AacCuqFp3nfFx0jMqmWkze UQS3Lnq4RZ5bjt95jku8kK ouXFOcvxzkBpC0ATftZNLg kllfAJr8ZPpwYLTgaQB8MO XpaDBrZ8ZfHJJqZO9zimj0 VON3JBwiKMQgMjY5CVZnxL DdFITpiOxiMUvkd607OZH0 FjRqJC0lN6Gjg7Q5zJ2ouD AvCAUztXEwBiOkLOCjyv7t lUOkFGwsc6MsXEQ2qdC5dN JdgZMgIIUoUV04Acdyt5Gf DkkoUGL1OQCnpxWdn8Zsk7 usLtCqueBmK4rbZ9UvYBIu IJCvWRFnWcCwmqMdq5Hjv3 YjiABjqQp8v0lgDQPxQUXy wLrxb5yhJMR0ZSZzG4F5bM Msu3ixYCrtSYYeyBK3rjI6 ZIJjpYJjY2WbtS5jPMOpFL 2gvkh8q1ofYPN0EWseYOUm GvN0ohB4GYResHYfKDOynR koIOojz242ULF5VvEgHIMn f7DmM4KehUijK77poLdnN8 5oAZPajLvrmD6pcXpbuK7r ZjBcZnMyNFxxbFxwbGFpbl xmMVxmczIwXGxhbmcxMDMz JAafU7rkTyOqUWOwyOxxVI fzu6NsTHAiZZLbZenvnyPm XHBhciBJIGhhdmUgcGVyc2 9uYWxseSByZXZpZXdlZCBh uWark8RoU5flCJ6uP1EpnB EhhsOexnRnAFmuPQYjz4d2 sDDizXzuu9NzyUInXZ28qn ExWIKtTJF0YCRlj5iuRJ70 gyvfCcHuoI30sbQmtqTtCJ Cqd1zgN5zziSOjx4Dri5Oa jvYcGOjrl8GpKR7umTBuhv pnrQM0IYZbcIJkyiTypnS9 jMfrRDCglP8jfU9pjJjojH 4xGcKsQoJaMBaxON1eYJCn P7frnHBeRGNnKKEbD4qfUq KzfM1kdKxuXrozowS7UBJw cn19 Clinical Information (test code = [id number]) Shivani Schuler is a 47 year old female with IDA1. Gastric polyp x 6 r/o adenoma2.Duodenal Bx, r/o Celiac disease 3. Gastric Bx r/o HPylori Gross Description (test code = [id number]) e8ccnLYzAIJjdLUKTEM3HN RwUS5scHkqiHy6tQsfNWJu nwE9zHJmOPghf6qqSVH7p5 osfdKXIojfFZNmMJ7pXXzr SMSbOS6zQaZmZMLmVhVnFT BhcGVydzEyMjQwXHBhcGVy nGW2YNCpAI1dvsweEObeDZ oiQQWdgzG0NSGwbIVzZ4Xi ZIGqEB8hjpmkDJU7YRBSQr aiKx5ibBXrqRusYvHnAoLg YXJzZXQwXGZuaWwgQXJpYW v0pN0TNxcfJTG2DKCEJxjl EegajKdcz6DsyLYiRYDfOY xcaWQgNTEwMDAgXFxkYiBP MiEkYzZ8Rlp3BHD5AcI3MR m9QCSUZQGlFtkdBFB4XyP0 VCs8XKKyEB3lDEqvpEUiGG jsRqyoDNxeM378ALcbXALp I7OhG1JeUZipNrBwOTuhLV TqMRYdSOhtNZMlL2OQEDWm GTL1BqJjYGYkFZl9QYqyV7 FRDQAyGHFyJwC3RSNjDtY8 UVg3NIUUMr7kGSyoRmOpYO n8QGV5ZYq5VrMwKRBeRjDh JRVnFXJcPBrqqLKfKK0oeH luSFFxWK2NOJBfOWvtBODx FmNsB3ZDL4gHEB4kGUassM JjaFxmczIyXHBhciANClxw XLZzSE5SKCRmYGrySVc3go VmXDJjUwUwMFRoX33nq2FP i2TzUV6HUQt4ylYpgdrmkB 1oXGEwhjJfMAuGpDJisK2q yuHMMOurSJKkF0NlqiBjWM uoSNYosp4fwWuyJUoiPeRi bGVkIHdpdGggdGhlIHBhdG klhnRvL5W5chVaRO6dKPON UAGmaR3iOKFgSGElh9DblV WseTwtO0UcuCFcRrJox6k9 zTZ5VJHeeyQdCLQqjCEkME Qvcb8wJGiwTrSiF2C9RFHx FSPra58osNH0fkRbItKtzA u6sJPaGUJ8UC4kvUookbXr l4y2dZ1oJWYop9R8MJFke8 Q1GACapyQayJQfiFJsLSLj ZH9pzgJaVZ35UEYgYVoqHN acFBW3JKF9ESRcoQOgr8lz ojkpUh8fEPsiFT4uYWqnTW 12XYLvUEnjEGDrS8FlP9R5 VCviLCCyXCBhlTQzgW2vfq XvelKqqBg5XNTlBZQ2zSBl aAmaBKGxLbqxwOO7RKFmPc LincEfh7BwkEx1hTAqFRak IKInzC0jvE2uNOChSSNhni RWPrnhUYVqFQysb5PpCXux cGljWHNhMzAgDQpcZXBpY0 8iz1WLb5Ryh1wkgOgha3Gb qFCgKT0xnLOmZJ2Xk5kuYQ AlqADtBNH5GZekk4aaSWaf WPA3PFPnQqQgWSSqLU7WBo GoJDzfDFm3GMhqTLf0BOc7 IJ0EAfClLUIpQxj2GiW0Ly BwJMy8WTajRI6IOOQ5MEVs EXPrETvyLUS2FQAfXEf5XT IgXFxzcyAzIFxcZmwgXFxu K17szZVkHZfiAlPoAIopxV enGJLkNTY1CO2URQGjRcOp G3QBA1qXAJ5iMbpelrWqEF DvvsAGYuftYQNuPQ9NRISy QGfmRIn8lfIhOPLcHcYbKI XqW40rc4NEx3ViLB9QMQf8 gwKhjtgxwM8dWLXmidCjj3 IzMFxlcGljWHNiMzAgDQpT nIBouK2slmKIDBwzEPQrX0 HspzFaIMieFKWrdw1ylVae IGxhYmVsbGVkIHdpdGggdG vlGCPnlEcvuxOlU8U1ejEx AI1iQCWHSSZqdR3bTTCdJD GsQZNfRHBqjD4aTGO1z6Jm kkLdERITURRldZexMG34tV BjZWxpYWMgZGlzZWFzZSBh wbAbjiNbl70zmhAhw9TfSO 0dqMetVPxKMAhvXkHtHA8u FNWssjGnj7XzWJ4qOKPidR JhWECijfvqrDOqBSz9uHTo TJRvAsKtyTvrj9EmDODxKP kcTD16kaGrDU5vAIenTX1s DHygGT8dPFSqMNMbHVNwEs TgeMAlYjFyuYYtOmFhH64c NmUUwVYrd4RnI0iuSE8byX VkXjlspAUnSAAkpXbdm9Ri vVEjYUYmo1AthODsLEjuWP 2fDGB2Yd7yxLRcMLHcvsH8 v2PgXAywWMEhWaysBOFoIT ktw7KtTCOucOZHy8OrQY4Y XHBhciANClxzYTMwXGVwaW CLx8BdCSIVWttycKpcNeIs mBMkZyN9XRKvmAEhLEA4HK 5koRqyWHWzKDs3FKsyKOLv S4PlG1MqDZkwOyKfVZwoJN RuOWJtYAowWGJyK2IOWIOe SCC9JdCyXXByQLf4QBgkR4 XIFSIrDMKzLjI3AES1ShO7 DPp6QCSTLo2aSQozBzOpSI AzDjJ5BAk0CwAqEGXhCtUq RHWqTDNnCPescXMhQK4siL diFBLnLFEhGJS3MKDrfDIT t2XjSLXzKWszMbGfYLEFNE SUHI5TArGXFVHvVmGylFXm IQ9HFUPxhvQyBWismUhusS 6kkJOcH9iqYzSqNulhgWwn TmVzdERvYzEgDQpcbHRycG FyXGxpbjBccmluMFxzYjMw OFJrdXTPj1BfBHNSEwNxCF NpbWVuIEMgaXMgcmVjZWl2 QQVsrH1sCo4uxKAgwZ8suK JeNCpxARFwe9p5vJQ5eQJw wKV8qFZjxJbmJlViGY1wcQ NlTNKLKF36mKLihzQlVCHo cW9mLAZiSWLwJSI5rieiGZ STBQM1fQBpe7Y8NVciFUQ2 qY3cmIznMsXvG2Y1HQDjJO Gqg38zmIS1hwLrVfJlKYEp vl3noZ3bRNbfyvIswKwklt Ele7J0JWAwn4T5TYIyslDi yFModVXbPPAwUaP1HOIjBf G4GVYyMXUjzRWvSOPvGR9i VGhlIHNwZWNpbWVuIGlzIG KziRObcqZvSPZtjl77W5zc NLCwyT0lb0yfHcZmHFRgIF AblKUaePX8FSVdfA1xfO68 ntOmugPVWP6xdSBxMN9DAB NiMFxlcGljWHNiMCANClxw GMNbITyxw4JdXKvfuXebYW SdHiGbGZiTtEcfNTOVM3ul pJFwHXcgYTRKXLpGG6SYPZ 9LXRDjiUOSCCN3ED4lWFva GFTzC3ZcU7UfdrH5z2dgdA eax9YobNRuFM0ucHArSZ1T XHBhcmQgDQp9 Disclaimer (test code = [id number]) m3nvtSYbQSFxa4fpJJRvkL FuZzEwMzNcZnRuYmpcdWMx KZwzlkJaCOzwg4DkR1VrSr AwMFxhbnNpXGRlZmxhbmcx HUGbKAR4yaDcFHIaMLqcDX KfBCbqWy1qlWOtxEwkLiFc TJGgb1effuQPCAcqEtCnJ2 08MTSxHGraa9hxr2JdNVKk fCEfo6L1RLMSfbqpbPi9vI lhS69mr9Z1KmtoY4xlWEZy FKYqH4TcCK0hMSMrVzv8BY R9FDC1PGIhBFBeA3TcEX9u RWDzzZAvFZr8r8jyuYxtIM NiQRT1c4fzANhaxlHzOT5x yu6rpQa5b2alosHkTDRhVU XecUKLEXIhK8QcjAxbXh2f wEm6mEsxQxbiZIS5Che5JO 2lwf40axv7yJjkLTSjsrsu QyY4IQqfOKLrwcspKZp4KK rtNNYpvPG3OWRwmKPjW0To BSOjYQ8runh1XFL3QThaRR FrYnC4SEKyoVXsDNFikGgl JQbfu732XMJ1ScHkJO4fQ9 Bha9M3nM0riAClLQAdtKNd ViUzMEUqlm2pvZGoUHcov1 WzISY6wjX0mJClpETwRHQf DS25Eyjhw4JlSesvf4GtO6 9ulVR3TUnzg6rtNQ2mXsF8 pkZjPYabv4ldsP4mCxS1WD iqCG9kOL8rZKLfbN0jvxhg XHBnYnJkcmhlYWRccGdicm CeUy9iqZblJKN7JLbrK0ed mN1nLfH2LTzhD2qsyB2wII m1FQnbpJC5CHNkyH1xME5e arnxn2dzMBiqDTstMUXlei B2pnQ8NCEpmBYiP5IcxZ4x WKTpYI3fppncd6kuCYW2EZ fpVRSkFAV7JeBoYKDfz6Jd ywr0UzUzm8SazXHkBFgfX8 6zg599GDVukoWtF7xnsMOn usoiwJXruufhMWguivO3ZQ XxtfDhi1NzVCGyNEL2RVdz LWuudOUsTCNclQpde9jbK0 RscGFyXHBsYWluXGYxXGZz MjBcbGFuZzEwMzNcaGljaF bvXKmxRwBbXLPaJAuyB6rb KiKfS2ZcVELxWtCezDRyV6 ggVGhpcyByZXBvcnQgbWF5 SAqtC4u3ZOGuzhSrjNs2vv YlByAyHXJyRHO4XPdllUEx NHDiz3EuogweaTOzYs7ceP UhFHYxgF5vVZGjXBOgMAow RN2oxRr9HHSBbYMnjSJuSp JFLUNoFX27czQmGMHAlfyz d0M9TVagVBGnp1YcwRDmK3 jwd7FoXBFfd05oKD4uw6A0 o4tjGTY3MU5le4OiOZFlfC BkaWNqSJBjh1Hievikt1Ye TWYlfxOca9WyYKBdsaWwtM ZyUOReqcLgcr3iqbZdHGSs ZNPwM8RklmdduHhebmFwWI Uzsd5qvqKtBMX0HUPZUKUj PYKhs1LewY5skGDDGPJ1cZ Gmrg3pzbKTlIKsSYUtxr89 CNSzVO0zW9kwMEHyUHRuan MuuAVvn0ZkHQNigDM1yZTn JV5PVcNDn80tIECtCCJDvt HeHTCxqTgjxDB7wkF5wG8x IChGREEpLlx+IFRoZSBGRE EpUY3lrlSnf0CdmlQmhWab SBVhlBDdy3RezDRkk9HjcC msu9FlyKHicNHzSB2hHROn clxwYXIgVVRNQiBMYWJvcm A6d2RtPNHqLOLyHFK6qFgo dql3DCIcbB1wQRBsX9lbqc vvFZmkEAZsx4XybA7nwLGO fPJgm4NhoGMwwMMInENhMI 6ravQfFCgJSGqNZIA5bwHn QLHdx3CnAPbhQ2hjN62vpE djsDu4bSZ7GVD3qG5hUfd+ IFxwYXJccGFyIEFwcHJvcH TdOFSorFhjweGjN2PtbpUw yK3keSIgzyLjVH0mDM7xW7 E5oODcPSGhyqQzf6xjZPsc dmUgYmVlbiByZXZpZXdlZC Wqg0OaKJfiVCR1KGscpaYd bmNsdWRpbmcgSCZFLCBTcG GhkZKyRCL4KHcoyhRwmwTi BD2fcI7crMnvgW5gwQTfkV A3jvthLEXkMWCvbMwsBBDq PK0enSppvD1rWqOwTnQgLY gvVO2uARHyY6qguAMxFDKf JJOrP4cpUyCawG2eySglOT xjZjJcZnMyMFxwYXJccGFy XHBsYWluXGYxXGZzMjBcbG FuZzEwMzNcaGljaFxmMVxk ZcErHEKqHIeoX6txBtMmW8 SvQULrNyKhxZFvH1gnTSke UCS9ZQAqBN7faNJfNV67tO Lus6lcRSwchZztqh7qC17v oPDiJBrcaGhbEMYzn93ik2 PiBSXvolXkmy5iAIDuhhE7 iG8fMBCmbRxcDJHfeSFgIK Hae4EiQKqkiWSyjnLnTIuy IMPkCTDbeDTqllP3vfIuhx ZpxbXsWQDxmMkxPFLan0Pc KVCpRXpxk7Spwi3ymGAzIU AombEFeUjuaVLiqP0cJ1Yh XSCvEXGklq1bVETsxX1dTE aom3XnxiqlNFRhPVSjPFUl wbFlgv3zBMWuzGZMUR1QLB tjrJBke5IztpKyO0sLXTB3 NUQwNjYwMjgxKSBleGNlcH XeDWDiwp30YLZqlX6hlDdv PCAhuJ4fcA7pcUkwfH4aYa DrDnIeMRbwRH4vPQJvQ5by bWOsTTZpJOLlX8jwZiTyqB 9jaFxmMVxjZjJcZnMyMFxw YXJ9fQ== Embedded Images (test code = [id number]) [facility] [id number] 19:23:05* Test Item Value Reference Range Interpretation Comme nts Case Report (test code = [id number]) Surgical Pathology ?Case: [id number] ? Authorizing Provider: ?Dominic Keita MD ? [...] HPylori ? Final Diagnosis (test code = [id number]) q4bhsFRnBBLtm5caQCQjcK FuZzEwMzNcZnRuYmpcdWMx XUyovqOvXRhncYqjKDZ6QV RoPM7pwJsaoUf5zCofDQPj zaQ8rJOeEMgjy0jpHLC5f8 mifrxoNBQfEFjxMx4nqDGt eHjnKsPdHFYtIMn0xR53TW EbeO1spVPzJHn5RADwfCNa stZrMaVqHDVhqVHbyRV5MC RyNN7govebGQwgEYenGGSc ynM5PNRjpLJzZ9EpEDTnOO 6twngkUTN2WPmsZWNyDOD5 HxKjDBLbk2Hjaok3GrEspR FyZFxwbGFpblxmczIwXHBh eiFZJiTVRT1AGUIAXUVFJ1 rBEOIAZN5DEORPQvdbmGIp CLAkWAQtBKHCDM2QIYRtF0 jPJdXqTD5SCDLyWNGvrQLu CKRmfsSBVsGBPM9OMR2BYG wgQklPUFNZOlxwYXIgICAg VOFpBPsHN1ZINRSeSXAWT3 FGNSzKTPmpAv7kFVRLAN7V S2eQF1KBNCCUJB1YWTbvSS RbGJUhSSIhXY1LEOfzOEFU PQ2YZGDWLZOGPEaGYHHKYW CHQUhWNNRBG4QEHGeZJTBb ssolTAJyTd3hR9YMFLGBXT wgQklPUFNZOlxwYXIgICAg TQJkGDXAQ5DGMmHZQT5FJ4 2VAOKNDDKAXO6SHMXYQDtZ PB9YPNYTRMZDUQZUY6UkhI FyICAgICAgLSBOTyBFVklE UW0TSYWHKjWQEMnAAJUaTW lTRUFTRVxwYXIgICAgICAt AT4NSMknPGGYMV9XAKIGSh dBTklTTVMgSURFTlRJRklF RJXXRUDLRI8FRt9FLPFIUr xwYXJccGFyfXtccnRmMVxz n3LaA2TwHpLyFMfrnhUwKR XoHdkopckpTDDsZFJ8gxCg VEIwDWryDBKuBFvdXk1bzR WqsRjyQoTwWFGwu1lovjRJ NAqsHrXtR213STBdKClbi2 lgk4JtSCZmsKTuc2G7RVIN eiywbDl2t5gpDmVgCiG0bK IdERhbY1cqzmRhjZDyC0Vq wQXmmYf2uTovH41iv5I4Jm saT0prYXYnGQGeO4SlZT3i YYKvQfn2SUC5TEM9VKYhNV OsZ3SuMU6dYRPbiMDxHYk1 m5vzmEqxTCKePEA6s7cnUO zxnbI9BK8yqr4keYm1i8vx czEgRGVmYXVsdCBQYXJhZ3 HwjAwjSu1nnZg6mVaiVxsc AZY8Ypa5VC9lhe98xzh6vE yeGYCemhooKxA2QXegOFHn vqjlYVh4JUcyXPIseSN3ZE PmfQSlM5SlNKWnMX8fbtw3 GQB9GYqeRCWeQyO9DCRhiB VlLDRpoTcbVHiuc325SLX7 WmJiID1mM7Peq3C1bL9arT IiZYOvgNWfLeNmTSMpqy8l cRAnMAzio2QrHMA6kkY8qT LakSCcNFOxFI94Mfiok3Hl CuudUBB3IWMeqmOwc0Mvt1 jyAgSnthBuI2tlU9XmMYYa VLPcHDHuFdBveiVcs9Peb2 DmjMZldNq7f5rbVOOtYAUq vLlfk0fgEEA3TDHnG9G8lQ Zlu4kgMJcuOPIkbOJ7tiA6 RFZjiUYgR3ImeS5iMPSrMH 5nqbv0z5wqSNB4FQezOUNg ClN4ndZ9JQTmqJEyXCUwmT mvAUker181OJO5OwYfXPDl h2WjJ9HzvQvmW56xeGxbO9 9rVOApkMurxF2dwVcafO2q ZjBcZnMyNFxxbFxwbGFpbl xmMVxmczIwXGxhbmcxMDMz XIzoR9miRnNbWOWtfKdrSF wzp4UcNISuAXXeBjkwjeXz XHBhciBJIGhhdmUgcGVyc2 9uYWxseSByZXZpZXdlZCBh kMqxi2YaC7gtOF2aU8MixH YtvrKitvIwQDbdKBVyb0v9 vIHqqYccv3MtyJReUX53hz SrQNQoJCH4EFKuj0rgJF75 tzuhEnJmrE31rsQccwDxXV Unc1oqL7jvyMNmx8Ark2Dk orAvGMnob0AfZP2zxITrbv gciDO6GKLfkMIxlmLsybE4 qCtuVQQskY6vwS5ucEksaH 4mMhLeFtCfXVxmNQ6mMHJp R6lluLQlQQAtVLPwK7cxYx TffY4woWnoNezqgwW7JUHh cn19 Clinical Information (test code = [id number]) Shivani Schuler is a 47 year old female with IDA1. Gastric polyp x 6 r/o adenoma2.Duodenal Bx, r/o Celiac disease 3. Gastric Bx r/o HPylori Gross Description (test code = [id number]) b0qahXGkNBPacMZLTNG4JC ZqOM6ryTxkpPm5yZsbGRAs plO6zFHyXWpne4vrTVG3k3 farcJHLzboDHJtWV5gRRek NCQxZT0zPuIcFEBuHoJiRJ BhcGVydzEyMjQwXHBhcGVy uFC6EFNuSN0ohatwHZxtEF gpSIHvkcS8WJIkgFGqE3Yp FCLaAG5zzffbEGD8WDRGSi ckJn4laMAvzRtbLyZlPxRm YXJzZXQwXGZuaWwgQXJpYW q9bO3GKysqYRQ4HJVEZjsh NvlqqDlwq0BpaMFoXRTmEZ xcaWQgNTEwMDAgXFxkYiBP BwZjFcP1Bqi4GXD1OoJ3QD h2AYOPGICuPiwgUAI9WnO3 LUq1FCSkHU5rZYbdaXRcLB lyZsbfVQwkL554UBqsRVMl S8DtU9JjPQkhCeGtHIzkPT WoINMaZRlwUEBxK0RPVWOo XNB0UyXlGQAdXVo1PGskN1 AXFNLkAPNmWtZ0HXJgWvY0 LDl2UDVEMq6pUFwyOkHrDE p3QYD7LZd3GxTzHURbNvJg FSCaDLNpHEfwgYVsYP3bgS utVFKoAJ1TOVZjSKbvRRPf UgKpJ7WMW2bUIR9aAJyaxP JjaFxmczIyXHBhciANClxw LMCuBM2NAATrAGxlPAz4vz RbKREzZvGxBZPfE07cc1JK k3FdDW8ZOPg1ypHrbhovvM 6lLOXsomAmQTeIwIBcaL3o hjBQHUehXIWkR9LkxxTxKG bqFGSomc3wtRdaQZfnFpUz bGVkIHdpdGggdGhlIHBhdG mhbsVjR9A8jrDuXA0aQGQA SADdwJ6uQQYqQLPyu1YzkK VuoLiyT5JxoTEaQzKyq5c8 hQA0CSCikoSyHMKwpEZxOJ Lbfn1pLWsmGiLkK3W7XKFf WZUqf62emKM8okVdZjWebH m4aPSrPPA0PZ7tjYcmchKb i6n7nG6aXDAyd1J1DULzv1 U0KVXaoqGrpKTrpIFfLPMd CG7kpxAcFZ39OWMaPZshNO liEET4NCU2NFFjkMHgt9gg lmuyZa0aAPbeNW4dBLomOT 15ZUSfRItdRZWeB1AjK6N3 DBxpAKLhZDHruXXfgA6woh GnluUwqPt1OHZwOBK3lZXl xKvpNREgKefvhLA5WRBvNw RiomSqc0RkdFf4sGMcKYre WNKftE9oeW6bMLKhUKYrbc VFMteoAHXhHMvkw0WySIij cGljWHNhMzAgDQpcZXBpY0 9ny2WWp0Ztd8ediBpwz8Hr iAGjLV9ytNRoAJ2Km3evPR WtjKHbOKY4IRcjs1niEIyv OQS2IIPeLkVbRNMhBJ9VVw UpWFsrSWy2UHtlVUe0IJk3 SB6PHoFvFTCaFco1QrN9By QdKBr1SEffTP9PXWU9MTYf BQBhPOkiXAJ6MCXkUFc9ZX IgXFxzcyAzIFxcZmwgXFxu P74oaXTiOKeaMsIkLIdrdL jqRCQeMAO4TQ7TMKHlYaTu I6JLD3tXAZ0bGxdkspBtUA NosyVZVhouFZAuHB9BKAOo CHbqTDi3myNeAPCjCfSmXF FdE91an4WLb7HjLG3PMBd8 ijRvhnuruO2dREBakzZjf8 IzMFxlcGljWHNiMzAgDQpT nBHxnC1urhMDFPztIFZhQ4 HzapVxBRvpBJJvrq7xlJnh IGxhYmVsbGVkIHdpdGggdG mgGEYyzBafonHqC1D9kuIm XU8uBUYTVBOofV5sLWHkSY SuCVIlJUAxuX2zWNF9y3Ew lyVoAFQEIHJpcYvcOR52bK BjZWxpYWMgZGlzZWFzZSBh bkXnuwCzh44iqtTmt1XeOR 8tlNelODeYNNifJcKdMH2g FRMtidOxr3JwFN9eJXUusI MwPWUvdzrisDLwWPu2eHCg JZZpHxDnuBmpi8EtZFQzNX zcKS85dpFcAP4gHJmvKT1e HRfsBH1iQLSkYAOaCMWvTp EkaIPwGyMcyBCaCiFrQ89a LvFTrNIis5IrA9qkSY4taL GhOpmyzAVtBBZkxMuyo9Hl iFSjTQAtr0AtwMKfYMrqJG 6eKMM4Uh6leZGfWABhpdI1 k8RvSHxyULOiJgmoDMDgYM lff6ZaIIXfbHXAi9JrSR0V XHBhciANClxzYTMwXGVwaW EQl5UtUACCCqnfhOkwXbXp rKOtUdY3NZLgnTHdBAS3NN 7pbXocHIZoDFy8RWzmZJUt M6DfY2UoKJghOmPeMLkxES OjVERhECoyRCOpX8TSAEIh HCP1WcMeXJAhYMa0FAneW6 YGULIuCQQxOqD9IAK2UbH6 AHp2AHSHZm3tDKxbFzQeKO UzVxD9OTw5HzKxBJWlVyDp DFJeMDJbVHvhzQRyGN1fwE rvPNLtXFCwKUC8FFZvuVTI d5WrJFChQOhpFhZaDOLUJN WHNQ3OIvUZZCEhJeUogBWc JB8HYNVjdvEiNMxltTyjgE 8jrMLqW3biRxSsBegbtXml TmVzdERvYzEgDQpcbHRycG FyXGxpbjBccmluMFxzYjMw SNZvkGNJh2VgEUTVAcTfOS NpbWVuIEMgaXMgcmVjZWl2 LUPeaF6gIj9tzWEtuH3usF CiDGzgFJJzu6w6fKD8kAAh gAI9fZCriAhlXiSfDN5cwO WzABZDIZ28yCMwttEpTCAq zN0bPTVyEQImSYC5ekrxBZ OZOTN2nBFkp4L3GHvdEPW3 hS1xxDtuKzFyM6R0MLPtHL Jsp88tpWY3wlQzLcJpFHMu oc9uvM8lQYjkknZtcDukmy Ppq9Y5NVAyo3Q2XTBrlbLl fOSamPGmYSHoNpI9DLZySq J3YKOqVSUzdMJuULGwUE0n VGhlIHNwZWNpbWVuIGlzIG IcgVJrfbClKAMqgw09D6tc DTWgwP6qu1fdQhCxSXCnGI FigUNfsHU6YYKftF8afS22 fqLpynWMMG7fsDWjQZ9QTL NiMFxlcGljWHNiMCANClxw JCYcJWrhm1UgSSbzvHnvXI JrItWjSXmZbFgzJNIST3or xABbEDaeKXRMIUkSL6QUOK 3EXKLknLHGSAG3RC8bQBzc YRJqS3IeQ6RcllM7o3wpkV ycz2XpkQFqWI9ecKUcKF4B XHBhcmQgDQp9 Disclaimer (test code = [id number]) z4qaxSMyJOYzc1eqZWTkeK FuZzEwMzNcZnRuYmpcdWMx BVaodvWcYInrt9BlE4UiCg AwMFxhbnNpXGRlZmxhbmcx MJHlVEL9zzRaKVSlEXxgRS FmWLerVc7qcTMhdFhoAxCp KSThq5kzheJVXLtaOhOlD0 33HSArWRzuz2jaq4InEFVo bDWtb6O3DQVTgmsaqAk3uM oaN55cb3H2WxenL6bnHUGg WFNmW2SfHY4dZLXdMlm6NF Z4BDO2YIDoPMEnG8BhYU2i MMStdVQoUWy0i8arfSqnTG HrJJU3b2ieKCtcxkJmYQ5p wz8xxSh4g8qmvuQeCQQiXQ YsyCULUUYgD9FdyZvrXi2t uTt7pFusSbocRAD2Qni2GB 0byc56ert8wQvkYFFpaxbz KdJ9RBreXELswppcIIk1UI nyKZIcxHY1MKJdgXFjV6Wi PXBbET8cysw8SQE6RXhzOO MpMyF5OWJnuCRpRHMggQfz PIvgg443NUP7NmCpPS0kX2 Jot5P6nM1mqHBjIIHiwYKo SwZqTSPpya3ksRTwCMewr0 IaOFL3vmZ4oLIblTYiCNUt CH53Gbwhi0AiKsfqy8MnG6 6cwLL3QMolh8ylBY5vNkE6 jzKhLJmwo1zoqF5oHuT0KM zlIJ7sDU1pJDYmvX8jhcmc XHBnYnJkcmhlYWRccGdicm ViBb5svXmpXTC5ANkiH8fq fL1bDrZ5AXteI3rmgC4uDB s9SGcmaHG7JEEtuG0nQS9c exbkv6lgCZqfAEtmOIRhcb A0zxC5GIArpUTnS7SlmX5n VZXuWM0mhefjs7tkEHY2MY jxNOBmJSV3LkEiVDYbn0Gy ybm4FmZiq3GsnFMrEWyvG9 1pw095XORhjeIgJ9klgBUc cgzybCIyydmcZVdbvlX6BT GrthPdc3LpAOBtTGO1UImo DTwqfHViVOJizClfs4klZ9 RscGFyXHBsYWluXGYxXGZz MjBcbGFuZzEwMzNcaGljaF onBFokAvWuPMQaQLfbW6zr IzNjA7ObTIXfBsOmqEFoO2 ggVGhpcyByZXBvcnQgbWF5 AJirU6s8BKScaoCeiIa6fx BlTaAaCXYcCHO4NTwhnJIb UWOlr9PiusdarNZiXy0mdX OlTPXozR3vCQWwLTQcUFaj NC8lcPr1OMHBwKHztYKlZy WCMUHqOJ40fqXlHPPWqgri x7F5RJujESIib0QwaGNzP7 bqc8WtXFCxq63zZE2hz8H9 f7bpIGA5UP2ps6SeAKTnlO EmgWZeCZBwr4Linozuy9Kx WXTgdgJrn0BbLTRudyNcbC HhYURdmdFzzs6wimRaEDOs CMWwI7XmwteltQcteiWvLI Fguy9ykhEoRIY5RQEVTUDo DBVpa7VhrH2nuCZFEUO5rJ Lmbh2przKXsXSjZITeyi47 ZPPgOG7xM2ntYLPcCYHwft PlhYGtf9KrWTZesZK1zZYo SB8IIcZXk15gARLnONNUvf XpCCEywAodxWQ7mfW2nO4t IChGREEpLlx+IFRoZSBGRE RcCQ6ygtBfi9KotzXxbXxd NKHxtVGhq7MyoVUau3StlA axa1KjuJMjvVWjJU8qSJWv clxwYXIgVVRNQiBMYWJvcm Q4i0BnTDWkENSeQNB5lZdp wun2DKVqxU3mOPEyL6fgks ueSOjiPODvf4RpbV8svXCC lKPya1NtxYPzeBOJmNWvKL 2ygfIuMVbWBRfZZUU9biZo YRPrn8ZaEGatA6hyR26tkE zljSf8vEJ5RDT5wU4fTje+ IFxwYXJccGFyIEFwcHJvcH BvIJTcvSwotcCvY5NdzdNq bP4ubCBgvaQnYJ9vKP5kM2 B5uPHoMGOqowEfx3kwSCvl dmUgYmVlbiByZXZpZXdlZC Fsu8MvDBjvJZQ7HGcgjaIw bmNsdWRpbmcgSCZFLCBTcG KauTDvNFG2QPfvixLjxhSz HL1oyT6ujNekbC7lnVEnwD G0ogoeALLzXQHhbGggGKIw NU9icYdlgJ5iYnRfCoKpVD jiYO9sHYGsT8mwoRUpUDPx PCCyT2enNjGegG2dzFuyIP xjZjJcZnMyMFxwYXJccGFy XHBsYWluXGYxXGZzMjBcbG FuZzEwMzNcaGljaFxmMVxk EkOmXRLrVIuoK1spOwOaJ3 FnNMGkTqNioVAwF2xaWIpu LYP3FKXvPF4lhZVlQP66kW Oum2mtXEntaEcysl6vL01s gQDlRQbmxOhgNTCxh10se7 EoHJNfmzDapo7jWMVzqfX1 vQ0iARDjwDqaHRVlgWRoLY Zdc4TtGTwwjIUlvqKjRCsz CCKlLOIngQIrkzV9aqHtou LbupBhRGFgjDwjHXTtp1Xa PAZtJMqef1Omif4vdNQtFW FlztCUfPlhfDVhyG4sX4Li LUJuFBWtye6vPAPpyV2wTY xxc3MqqabgLAGcIKXwLJGt ewVnxm2aCDQqjXYQCD1KEO cerYDdl3JwobUxO2xFVOQ6 NUQwNjYwMjgxKSBleGNlcH MvZESals32QHZeiG1lcVgo KOVyyX1sjP4zxXjlyH4gMz XzJnDdHVyaHB0fPQKnF8wj xSJiXEIcMIOvF5xwUrYtqJ 9jaFxmMVxjZjJcZnMyMFxw YXJ9fQ== Embedded Images (test code = [id number]) [facility] [id number] 19:23:05* Test Item Value Reference Range Interpretation Comme nts Case Report (test code = [id number]) Surgical Pathology ?Case: [id number] ? Authorizing Provider: ?Dominic Keita MD ? [...] HPylori ? Final Diagnosis (test code = [id number]) u7wpbZBvMIOmp3omRRNdvO FuZzEwMzNcZnRuYmpcdWMx VTrmdsOhLIixlXzySOT5XB OfSI4abJylhVo9gAcjKIEs spR4rEEtWOlrl2iyGIG3c3 wcmxqhKXOuCDlsYa1riPMr yBolBfNlUEHiZCl5tY78PT QrsM7ddUJlGOp3HBNjyRGg fgQiGjRxOUEesSGbqSZ9FG HnNW8itqggVZrfQTtgFSFk vlQ6DMBdpSPbG7LxPOItDF 6bttxoKSC3NLitXWUuXIV8 FaYmZQQra2Nsjok7JxKwkG FyZFxwbGFpblxmczIwXHBh xtCMHgFETO8UMZMSFBRKD6 uHTYMAZR4LEPERGcfdhPNj UJMxRLLqABRTUV6TAWQsN7 tCFsSsNX7MRKFgCRJpfEPc JRFjaePUKfAIFW8GBU9MPM wgQklPUFNZOlxwYXIgICAg UOLyKXiNT9JOGOKsOBSNX7 BGOVnAKLzvFd2cRVKZWQ7F M2lTK9FGNGOMYY2SRUdzSU BfSZQiGNDrDJ5KHCytZETK XN7GFAIIBJRHYQnAOWAPSE FPFNxUHXNCZ5NEUUlUPTYj vrgvOAByQh7pU4XCEHAQBM wgQklPUFNZOlxwYXIgICAg SUItHKFPY3JXYqYBSC4LG8 9ATQDAVHMHXS6FJERJXMzK SJ5MCBFLNMVRJIQZZ0WbqB FyICAgICAgLSBOTyBFVklE NO5OUGNGRoKALWhXSZLmIQ lTRUFTRVxwYXIgICAgICAt HX2ZOKukVXYOMR0TDXOTVl dBTklTTVMgSURFTlRJRklF GLBEFWSOQQ4STo8PRVLGEn xwYXJccGFyfXtccnRmMVxz x1HiE6PdBgMbLDzinjGjQV AuGguryfcdPTTdWGW8imOs LNHuYOcmFJFdGYabAy2lzB BmzAflEpWyRLMoi3hxyqOJ KSrtYvTvJ230VWDfMLwxs1 ykq7XkGQUurCBsx7Z1CWSZ sgrraWm6n0kyTvPoRtH6iK HqDZzoQ2dppiZvuYPoO9Vf wAUdjTt7vQugN85rb7J5My dqN9esGTCmVEGfR6ZfTQ6g FBKrWzz1SBD7KEX2NVQwBG CoC0JuVE3nLWQjuEIkCKj5 h4mwfMqcZAUhKIF1i4qjYE tpckZ3AE5rxw4iaQc7l7zq czEgRGVmYXVsdCBQYXJhZ3 RdpGklXm4mbEk3oFotSrun NWY2Anz4ZE2nre68gar8vW wfUGCfaifbHrR3CSnvNNMi ueqyEWw9WDqtCVXbgQK6KI LncFDeN7AiZPEpLS2yrhw1 AKX4RVveXJYpJkX4ZYLpgC RrNMRbaKseBKxjz044LDT1 JqBbZX2iM3Rzi0B2lU4ddQ SdTLBwnJWrFkIeSSNhee6x cZFwNEtui8QjSWG1jfH0zF HecJHxIMYqHJ89Asblx9Wh FbucVJG1NYTxybKif9Mnu4 klEgFlpjAbF1zfL9BiXXVa QOHyQBRxBdQxdaYqw7Azz8 QfbLGyvEa9i2ctQJAxWQBh kRhbi3brHOX4UYXcD4H7zN Jug2jaWRksANDsoXP0taU3 RFPazTQgH0OedL2bIPAnYD 4qnra3b0anCPJ3CPmpQMWe FfW5ebG7TVMiyMCjOHGadW saCXslk514JZE5RgShUBNr p1CpB8WbqUvaK24dqOhhZ7 1zTUTjzIaogD9hkRocyK5d ZjBcZnMyNFxxbFxwbGFpbl xmMVxmczIwXGxhbmcxMDMz ETcpR3zfUwVxARCehFwsKD iaj2PiTWPoQEBxSdlrasZv XHBhciBJIGhhdmUgcGVyc2 9uYWxseSByZXZpZXdlZCBh lVxqi4KaD1gaIS4vJ1JmzK ClkfBksxGcVDydXEQvp6w5 rORvxLyou2FkhXNwFB07eb UbFFGlFSD7PAKrr5sqUD16 udkgQdKtdY33bgFswgEyMJ Rpw8exA2ehtIKai3Djk0Ux piQjBGidu6ZuCK9xhWHjwz qkpOM0JTPjtIEcucGvgiF0 jTtoEMBqlE3yhX4zgIplxV 8jQmReEhJaIQjpXI9oDRSp D5jmkZUqMSGoHAEgK9usCi MmuT4zrNrmBkngysT6JTTc cn19 Clinical Information (test code = [id number]) Shivani Schuler is a 47 year old female with IDA1. Gastric polyp x 6 r/o adenoma2.Duodenal Bx, r/o Celiac disease 3. Gastric Bx r/o HPylori Gross Description (test code = [id number]) u7puzFJzGKTeeIQWRXH9EP XzSV7qgLodtNw5zWbpFYWc yjH2vNGnIGybw4mdFMQ7q2 xwziPHNpziIJKrXP8vNYcx KPMbED8oCnQyVUSyMiBqPE BhcGVydzEyMjQwXHBhcGVy zJR7XRSbIO3zwlwiGXdpVX yoYHIfqaV1XBMgsZUwJ6Ek RWBoJC2ycdalWJV4KMIOTg leIz2psFRnuIreBbHxYzNp YXJzZXQwXGZuaWwgQXJpYW m0gA3XDjhoGTQ2OYCAKgwi AkbguBlrk1ZwfOLkDTDfNC xcaWQgNTEwMDAgXFxkYiBP BqWmUiV7Isa8IEF7QqK8NK f2RBAWISMnLnluGER9TkI4 TZc7MPQnFL8dPBylgOOiUW vkBcmrRSvmY637HLoqRGFs X8XvE0UaUAucOsJvCLtiOZ FvYSGjJQvdWCEsW0FOPKUu AIZ0InWdKZTbKCm6BRpaO7 ZCPDUvXOUlJiP2LBSbOkO4 KYb0ZQZTZx5oFQsyBtOxCO a4AVS9BFd1XjAnGUMnNdSq VAFcMBZfRYucbHTtZF3ojY adMSNbOB3FWPJpEXjoQQBv BdVhM0RVJ7yPCI5cIGeyjP JjaFxmczIyXHBhciANClxw CDAsYN9ZTQZjKBnnTRk3dp ZpHLLzDaWhSRWgU92be9VA c1QbRV6NHWp0qqCbxsdteB 3bCBWhdtHoVYcBpPWqlS6a nkWASMepGMYlN4MupbFhAR huJFAwnm4kjEewIWwvZcVq bGVkIHdpdGggdGhlIHBhdG lskkCoI9F1ftIqES1hXBNM VSZfxF3pIXOfZPShy9OeoV WfyPjfR2TuaNPbLdUrs3r9 tAF4XXErgjMcDKBnwIEeCP Wmmo4hVLkvNrIfH1H0JTTw SEGgo31vyJL3wiMuUeXouG k6lOXoVDP0LW5ssHninqQv i1x5nN9kBDDha5Y4CLKwv3 P3AKKudeTohORjyNMuSEVb MJ8bemPkQF25TTXtQYwbQR hpKNW8YUO1JJPmgIRhp4pj czbbRr3tPOimCJ3fCSkoVM 01QOBrEAtwSJZfI8MsQ7G9 JNpiSHRiIOGmbJKwiZ2ogf NqlgMuqUp7UEYaCGA3wJMm yRaoKYNsCwpafFY4DXXqUb RgrqObo6LlyZy7cRWyVXmh ITCetQ6zkS7qNUShPWAjix UQXdvaVERiTIpxa6CsQEut cGljWHNhMzAgDQpcZXBpY0 1qv8UBp2Bfw4kaaPxmb4Sv pOLyZX8utJLaPO3Rs2dyYS EmyDQjQAH6UCqql6oeSNhz ALL8MYLrIcBsDUSeQH8PHr EhSWepFKp2TYfwJGo2UQk3 DT2MQvAhLOIhJbv1PiU9Gg XlBVr9JZmpEF3DEZZ5CGXw AHTkOFozFRB2LWTwZEv7KJ IgXFxzcyAzIFxcZmwgXFxu J20kgVJwPSmsQwNxIKsfxB smHPFpWFU6TW3ZJWWyHyRu I5UNZ8eUEY7yWjixjfIzUG AzvjJNIbplEQGuOF0EZBEj XHicMSi2kjEnMKNmHpTxFF DhT28wc9IXh7HaTC8IWWq5 biVtlwzvdD5wNCHtceZtd4 IzMFxlcGljWHNiMzAgDQpT aLMngA6torSYCOcfWYGgD1 TcwjFvADniUDTjsr6xhOhr IGxhYmVsbGVkIHdpdGggdG yrXXCxzXthueVoE0F7cmJe JF8lDMGZNCWngE4eHTBgPB NhDLSqKHZfbI6zCRV0w2Su xpFzTBVOEOVblZlsUA08lD BjZWxpYWMgZGlzZWFzZSBh gyKcsuSrs23nliMia7UtFP 8vzOinAGdIFPelEdRdNA3b ZOKufcKsl9BnJI6mJREutO PrNHHhrywyyLMwVTf3hBQu GIRiBhFfpXtbj1AzAGKeER zqLG96kkHnHB1zTAwhAS6r ZFhoZH0pBHYpEBEqKUCmOu PeqBKqHqVzvYNzUxRqY74q FhTYhDQys3AhX5upPQ8fgZ BkLgureRJlRWFpqKkqu0El nSXjWSKwq7LobLTsIMbbYW 4bFNI3Dc4fhCTqVNAqmmE2 k1KpQGqeAZUuNaeyTKOtQO cdv2IcLYJtmUWZe4HiNZ2J XHBhciANClxzYTMwXGVwaW ZCj4TxIYJKLwaszNnjXeUa wWWdOxL2GSKkkUDrBZE7VE 5vrEcdRWCqIWh2ZKioGAUq V0MgS2UySRihSiGyRRbkRG VcBMSfJAbyUKHxC8KQENEg ZUC3JbFhXYFxXNs2MQuyC8 HKMGFcPWBiTcV9EBY5DlZ8 LFy0PLWOVj6aUXtfMvJzCC OjZmW2PTk4JzCqJMYzRzCc NWMjBPKuDFkciYBhGZ4ybY gxPRZeLOZfIRQ8NZSspVZE l8AyDAAgEJysRtFdBKKYZG RLVV3XWuSREMSvAlFdjMKh HM5YOQEteiEhWJrxdVmxlW 9sfPOoI8juNkFzHssooCvw TmVzdERvYzEgDQpcbHRycG FyXGxpbjBccmluMFxzYjMw HHSqgHRQt4DkKUPMAwCeTV NpbWVuIEMgaXMgcmVjZWl2 MLBtsU2gVp4gzZSxzT5caF QxFNqnOWMmt1h5cFA0wDAv fNW3bYTjkGtyRyMdXI2nyH WeYMVFAJ95nLRguiEjDRNe hR7lGZJtOIBmUTC2lwelCW YRQTS2eWNla1D7FRfxQIA0 oT1kwUexEdBrL5W7HZKpDP Wco91mrVI5fcUaCqJoKWUj ej7oeN8tJJgdelAppPckdx Kuf3U3UNUnn6S5RCNzodPm nDGopWEkWOTqPiP1OBCnAz Q8IAGvQFSrjTTeUMLqWX6x VGhlIHNwZWNpbWVuIGlzIG HaqLXxvrRsENRwhw03I0gf EJZdsU3pz4ouYzFuKOKpAD CmzNEzaEB0VJIpfP9ciE36 lzSdjkNRWV8xaOMkEN2OBL NiMFxlcGljWHNiMCANClxw YXLvLYrsi9RtAVvfdRnwBH UyEfDwWIpMbIkjPMDWY8ab rELnVLljZWXNPPkKM4XKKQ 0VKHBfxIYADYD9GC8nMMoj KKNgS9TrY4CowfY6t5oqoX iki3OlmBFnGG5zqQGjTW5H XHBhcmQgDQp9 Disclaimer (test code = [id number]) c0klrBIzCCGzm6wtQIAakG FuZzEwMzNcZnRuYmpcdWMx VTkjrxXoNHunn2UjP6XpGp AwMFxhbnNpXGRlZmxhbmcx XQXmZCH1xtQeKWBvNLnsKF QsHKznGg0qwJCobZvjShLv ROJzp1hyozBVMAyeUsTsQ1 18ZYPvEDqvb2oqg1UuARJc eMWak3C8LLBGmovuzNy4iP wqM32ht9Y0GkqgH5ibCIZw XKIiK4ZbWZ2xIQFxOsi0BM M2FGU2LIRgPJCvP6TnRD6b PRHnaGXoUKi7q7xakIemWP OoUNZ2b4gnJRubepAvDT9c is4bcLb1f8npfqQuIAJmHA UbxCIXMYMhT3IlzPhfMm5c yMt5nNdxPysbTIB0Msk1IP 0vlo62ipa5bEtcAHPzcvic VxX7OLraNRHifiecXSr7WF upCZHpoXI6VPMweRVkH1Rg ZJAvHW2qknx2UGV2RRyiDK KkBlH1IWFdtTWbQIGzoBzz KOqpx866FHL8FrVvGJ3aF6 Zvb8M5kD5fhBNzXAItnBLb HdGlTDHhzr5opKJxEFhth3 IkNCT3qbG4fOBmjDBrQVCy WQ09Yboye3MpAuqzk6JsO8 3inSV3TOqym4cuJE6lDjS1 fcHcTCwcs2qzdN8uXyZ4YN hjZW8nZU6yBWYuiO6qgbba XHBnYnJkcmhlYWRccGdicm RiRw5lqYrpYGW0WGvyA7dy lR5lUaR7XNdyC3cwsB3yNG t0CFsszJD1RIYdrU6nNQ4i milqp4noGUxzWQuyWUPkqn Q2keM9YIEjuFGuE6QieP6v ESPdRT0ymxmfk8jxMXN5CD ahBGZbLAG2ErFeYXUpc5Jd gnb6EdYel6WnxWEsPKhqQ0 7xm057QPVcwcCzX2imiPYe wmevpWXlenzaBDqizoD0ES WhzyVrk4KrMWAfLNR8PUgt BLzcgPLeAZFjmDjzn5kfC4 RscGFyXHBsYWluXGYxXGZz MjBcbGFuZzEwMzNcaGljaF ocPPmyYoLyWOSdYRgzA9ha TeHmL5JlQXPtJhGmiRWjT3 ggVGhpcyByZXBvcnQgbWF5 QVosE3q1RJDkusIrxRt3yt YaPcOmGTRwRKX9FJzyqHBn UZAnf0CfcakzuCKnTm3ypW JrWGOlsS5aXRBcNPDlPXib PB2lvDm8BDNGoONvkMXrGc YGWFGpDV81ncIdZIOIpcyd d4B1KZbbQAEce0CudHYyL3 tfs9ThQAUkh71vLA7ff0N0 l2adTNJ8BK0kz9ZeALSoeW RfkKKmAVQsq3Xhejsuw4Kj XPSmkzIcq1XaIWZqojAztZ YlKSNqdkPkar4tvdCjZOBc RTIiF4FklloftClxfuGxWX Kglm1dznIgWTZ3OIDLRDXn SURaq4SspG1vpSHCTZD4uV Bmex1kkyUUvXFnFIOwcd59 KCWzYF8kT2fhLQBrWFRbre OmoEOlt7JvZDQosCL1bYTm CS0ACjFRj45rXUChBGFLyn CqQSShpNgruRZ8jyO5aQ5m IChGREEpLlx+IFRoZSBGRE HsOQ2chwAsz8YgilZucQef FYPlmYJpw4ObtBXks0YqjS vbc9YnfZGduXHeUZ2vAQIf clxwYXIgVVRNQiBMYWJvcm Y9t8AxPTTbETXrDJI9fJcz wnp9DWSlcE6mPWSyS0nbji vcGGsnWSGeb5DtlJ1tyICG qGDft6XwfXQjfWOPaEKgVB 3gacSiKLoQKXgGHZF1hxQn RGHgu4HmVMkzT2ncB73ozJ xwySz2rBE6RHN2uC6cRmf+ IFxwYXJccGFyIEFwcHJvcH AdYLRqmWzacaTgK1TvxaQv hF0dlQVmxqOdUD4vUU2tC0 B5bFJoSOIscjFgu1heYLpn dmUgYmVlbiByZXZpZXdlZC Gkt7JzLZqaGYZ2WZamvaCv bmNsdWRpbmcgSCZFLCBTcG AqbRDmHRW2FJqhqnIvtzYw KT1dmL3adTtueR1awNNkbI X9cyfaGQUpJKWekFmxOCDw EA5bpXjvjN5lCrOeGbOhWN udUE6gFNEtA5lerOBdWYFu CCHvX7maDdHclD0qcMfhLZ xjZjJcZnMyMFxwYXJccGFy XHBsYWluXGYxXGZzMjBcbG FuZzEwMzNcaGljaFxmMVxk KlSwQXCxILvpH0sjFsEsN7 SwVYSkFaBcoLUuR9yeJUyt BYW6DMIhGF2zqSGySC71iS Rby2ifIPuslYkema2kN40o pONnJWcfzQilYFRrc64gz0 VhNSXpucRped4yLRUdvvS7 bS6sYIPcxBxcEHDglMRiLF Fcd9WzEAxpcCZnmgNkMTch VZJgJNRnlNNeqsP8soYexj WznmTdBOPukMdsPJNlt4Ss OHMzBBqvs1Uuhq5gqBKsCO WbfmLYtXgnbYQifL9aC6Fl AAGqXEQepc5bMPOdbG9mBJ niu4FqzyptPJMrMKZvOCOt rcGcya9zFWQfxJIAED1WVP qazFLtm6DbfgPpD8mUGVF7 NUQwNjYwMjgxKSBleGNlcH QoEFIkpq78IYGknK1jsIow YTWndP1tmY9rvPicsK3tAf HlUlNlRXpgEM2hADPwE0zm tZBcUSMeZCBiN4nnIfButT 9jaFxmMVxjZjJcZnMyMFxw YXJ9fQ== Embedded Images (test code = [id number]) [facility] [id number] 19:23:05* Test Item Value Reference Range Interpretation Comme nts Case Report (test code = [id number]) Surgical Pathology ?Case: [id number] ? Authorizing Provider: ?Dominic Keita MD ? [...] HPylori ? Final Diagnosis (test code = [id number]) x2qqwZKoRUPtm9grUKGvdN FuZzEwMzNcZnRuYmpcdWMx OJrlvoFnXRlhbIpfXYM6RU CzNM1gxErgwCt1wZmdSVQv ksE9kDMaJNzdn2jvCCH1z9 ddrrxdPSMaLTyoFd8viEXc vMmaGcVpSXNtKEa4dN92QU ZipO7qfUCxXXm1BPCkgDYx tbWkAqZcDGMajXRgzAO0OF IfKN2ystbcHXwsCRagEFSg izA8YVYmcDGsU3HfYQLcRA 0rqzogDNN0EUatHJRnIOD3 NfDfMSLgc2Vutgz8QhAnwK FyZFxwbGFpblxmczIwXHBh aeRFBoCCUN4AAJJXAAZSI4 hBQTBUBE0STNBSKvsueTMb UMFdYTMbRTYOHZ3RRWPqJ6 pSNkAqWY0DXESqIVEzmNVo VIXqmsLUDdXQZU0SWP3MNF wgQklPUFNZOlxwYXIgICAg PLAsAXgKT3IEUUEqCJDWB5 AKLBgJDAvsRc3mYBTLEY6X M1oCZ4WQUUWWIP0SQDxlKI SuIALhYSJdJE2ELCirQPRN IX1AVQESJVCXOQtJUVWZPU XQEOwYMYJWX5YDOLwJDIQp bsdcWTKaSu6vK2ZIPQIXYI wgQklPUFNZOlxwYXIgICAg PUDkIMMXE7JIDwEWZK6DO9 7GLPWPDMIBOA9CTQZYAWxD XP3QVKNQKKKJGFNIP1NvlR FyICAgICAgLSBOTyBFVklE TH0PQASZRrRUEVyMUFCmZB lTRUFTRVxwYXIgICAgICAt KZ3RXDtfIDMXWI9VOYAYOe dBTklTTVMgSURFTlRJRklF JEJVIPUBFQ2KDx6IOHPEHj xwYXJccGFyfXtccnRmMVxz g3CrS0VmOzVqSAghooCuIN XlGyqystwhQUQuWBB5pyYs CUPaMVlcXZWeMMokXr5vaX OsdQqlMfNxBTAha1smhhCU NEhlYzIzF957EFWdNKjda2 acz5HrJCZmgQEvi2Z9UWIL nxbppXj7j3iyAdErTuL9vN JhAJxbY3sjyvDwcGNuS7Yb oRJezJt9cUabI56ab4I6Te toU7eoXTEsBKCgQ0IkRC3o KRUnKkq3QHV3WNM4LHMdRJ AfE4LdOC5vVFRviFTvMZj9 l2sfaHloWRUiIWJ6w3ssOF fawmG7UC3aas9atIa3n8ij czEgRGVmYXVsdCBQYXJhZ3 NyvFryWa7atTq2bGecHqpj UJU9Twp9UA2vsl32dsf0rM leJCIqcwfhCqD1IOvfAJSj gwnmOSw2LWjeCNYixOX1SF AaxOAoF2BmZDRuHM3qwem0 WCG4OBysUPXzFgZ3FQHrcU FcUUOegVyjJWekk184DHW4 JyWlLJ1lS9Twt7Z0qI1ltA WoLYNfiWDeRiHqTELksi6e oPTbGSpsm2YgSSI5vvK3zG NrcVVeRPZrSG79Fmxge4Hx QtlqYLL6XEVgbvTey3Duf2 mvUsZxhqMrF9hjY6EbVTTi JYAlUPKeNkVumxGdr5Wov2 MhhIByvCo2m4owOGBqHFCf cUzkl3etFDK5OREnJ1S6sO Zzn5bdLAkxFIJhcSK3ehX6 JHYguEMvG0YbtM5pBYIvMM 1cpsh9t2fqQFL9TIqtEKNk ZaP8vqH2ODMhiDHwTVLeuX wkZMlkl519ILR3YiLcLEQi a7YpA1QroWqfQ33hrQkcK4 9uZSBjzHyeoP2quKnriI4e ZjBcZnMyNFxxbFxwbGFpbl xmMVxmczIwXGxhbmcxMDMz ANrbU4vuTpZuOAIdiFbsVE mia6YuHXGwJLTrGqodcvVj XHBhciBJIGhhdmUgcGVyc2 9uYWxseSByZXZpZXdlZCBh pBifm3DeJ9rgDB2nY7EkfX DhxoNmgiUdILyyZIOue2e4 jBBatNqzn1EwbOOrTJ96sk TcTFJaNUV1MQIon4kjOU81 mvxzZeFldG28kmLzzeOpRW Vpf5ngW0srjFBgj0Rrn9Bl tyHjVSrim5UwTN1fqLGkad idvPA5DMRyjGTakmCnqyQ2 bOqcDCDauP2djI0fxDvjgB 6eHoEoUvXsHOtuIM1mNMVj N3zrcZIbEWBxDMAyT4gvUn EfiC4ysAcsXovqqwL8QLWg cn19 Clinical Information (test code = [id number]) Shivani Schuler is a 47 year old female with IDA1. Gastric polyp x 6 r/o adenoma2.Duodenal Bx, r/o Celiac disease 3. Gastric Bx r/o HPylori Gross Description (test code = [id number]) s9exwXIiNQMdhLKIKGR9PP OjJX2yyZhwdZl3yGusIORr pgV4mKImGWfcp1xiNDQ6w7 dwdvCSRvgkEPHnEA4cVSqu YHAhLV6bLcNpGKKhCfUzPU BhcGVydzEyMjQwXHBhcGVy bNQ8TYClPS9ixitpFZkrJC xbTBMlfmD0CTRskNOuK4Te PFQlXS7abugjJQT7CILIAn xkSw1prWJhxLeeGpYsSyLm YXJzZXQwXGZuaWwgQXJpYW q5xM3BBxptVYL0KPTZNckb YxsfgToxk1EknGPkZYHsBY xcaWQgNTEwMDAgXFxkYiBP QqWpXvB0Bxz2WHC5RfF8XD g3UVQUHMUyGhtxVYD5YpT3 WLn4MOAjPO6eUWimvBPvJR icDzqzNEdqA133SHwjHRFu F5CqR3KnNVwmXeVdYCidHF UmTQNeAWykBLPkL0SXYLZa FNQ7LlGyTMShFVj1HMosR7 DRWMPdOSCjAiN6RCIgQdM3 XZi2ZESZIe4cOPmtEoYyRO b0SFC7YPc7ZyUxLSDrQmFe ADLwJFLoBSyynTAhFI3khK caRRCsVJ2YJPSoRAocQNKb MpQxV8YSP7oPVT9iDQqkmM JjaFxmczIyXHBhciANClxw HOYsXM9RQSUjPYavSBh8tj JaGOIqPqJhLBAmI53at9UW v0VwUF0XTWh8vwTlsjvooU 5mKKBdqhMfOLjPtDRtuY4y jxQLPNzbSNYhO7FxmzGgGM nxYSDfrw3fbRwqZGzdBuHa bGVkIHdpdGggdGhlIHBhdG cvsfZeP2R3otMmIR6wKWFZ FOXdnV0jOLBbHXAqb7UwmE MllHmtO5ZbvWTrYiDdh0l4 wLW5VBOewnKrFHWhzBKeHN Prdf5wEXzlYqWvW7K9LNJl ENHbp47glLA1vpOwToSqpN i0tPMeDWO4WV8vsOvmgpXh s7p9kF3xLAYvf5Q6BWUcq5 H5OJWdwiKgwKBvpQAvOINn WM1btePuTN59GRRbTGtdFX msMFD7QIN4TKWokJAsg8kz zatlYu7gYComTH7wJMnyGT 24CHUwVRiaUXRvS6McB1O8 WHebUQLuWMHnjKGjmT2gos CupsYedJe4KREsZHD7uRGx qTrnOFEmSaeppRC9PQIuRi XwlvJde8KbxMj7hVUdJIrh KKQryC0ijH6kKVMuHAItzi MZRbhvBFCpQQpcb0CmUPth cGljWHNhMzAgDQpcZXBpY0 6wi4KDu9Sbi6dcdIhkl3Vk yBDmAC3esOYoVE4Ac4twTB OdlIGnSMY9BTsnu7zyMXcn FWL0BCOpUoKmYJWbRT9VUk VoXOnlJUr6MUvfGQk9XVd7 SM7LGrUbFBZaLba6IpB1Ns CtAXi4HLwtYZ6EFFG1DFCy MDEtVCcpJRI9TYSaVUk8TV IgXFxzcyAzIFxcZmwgXFxu P68moHPfQIfiLzDnJGoodP esLDLrTXM9YF1LEAZuTgGw R5GLK2vGBD8kKuurulQzUB XkstDZOrdfYHQkIJ7JRWUs OFpoZXm0ygKdMJNtVoEhFT SbV76gf5KHc1JpDH1TXLt0 awThxbwfmU0bJTBwrhCic8 IzMFxlcGljWHNiMzAgDQpT hLGbnM9cnmTCEKubVRArW5 BjpbSmIGpyZIFncs2czHju IGxhYmVsbGVkIHdpdGggdG ipFLAriPcknwUxU9Q6wjAl IU9zGBEUJVSxdZ9tDZDiJX ReRBZaMVRgwE7sLEV7v4Bb tcAnUKKBPKDjnTtnPN91oC BjZWxpYWMgZGlzZWFzZSBh vfUdkkQhj54gogWlm0VbBU 3hlLbiCGgGZEjdXqRuAA9r FLXzxsNmx5QjFC0bNZJdbD JdSBRuysrxtGNnFHv5pWBg AWMeFyWjiYvsi0TbVMDxJO foMQ41xmZlJL3oCJppIB7w MVvwEB8oAFMmRTLjYFOrWb YkhEOeGmEjjYSxKrNrQ32y PdKAzBJlo7CcW3xhIX7hoZ YrWwyxuXIrQUEotQfop4Ip uESuUGXhm4LkbAAhXVznON 3aAHZ2Az5ijOKnLFEtudC5 p4IuWRfnNIIvVqiaTBGgQN kya6DhFIRyvFXDq0JyQD8C XHBhciANClxzYTMwXGVwaW YDs9GsAEBAJtdqjBgfLrVw uPUwNnD5IMGrmHXzQZJ3EA 0koOkyZNKmDZa8SVpmABHx E0EpR8NgDMetVoVlBJwhGA ZfZGHqIRadAEWvV7ZTHRGv JMB7AdRsAHQqFGo2XPydI7 EYOQZnDRTjOiG6TLK1ZiL1 RTa0XKQGFl6yYZjlYeIsML RqFbA2FZn1BwWgZXFvKcOt QYTmWCJkDSuoxPOvZL9anJ awZVUzUQJxHOR6BFAopAVY m7DjYIGvWSjtAfXaWFUACZ UKIZ9GAnLCAAElAhQrjKHv OP1CRTFqemIoMNbouGqbcH 8rzCQvI6jmTjRxCeimtScf TmVzdERvYzEgDQpcbHRycG FyXGxpbjBccmluMFxzYjMw AQOivGYJc0FzJBSTRcXpEG NpbWVuIEMgaXMgcmVjZWl2 SBHgaJ4qPf9jeYQzqB0fhL AgSPwcZFQmz4f2hUO8wBVc aBT7dMIfaCosNzPyYP6ujT FeDYFROK99aEMuxuRtKXAh gO2cPNMdDDVwMZM9qcuuFF RIXOX3bETjd0M2TVocKYN5 fF0agUteNmHkZ7P4YXLjLN Gdt45xyLY4coHlKwOzVWDv fc0eaW0pTVkmsmVxoIfmbc Kgx0T6YPBqj3M3ZZJfzsVb jODkuJLcNPJrVeG2QXRuEg N6TKShDPJueNJdDJBzRF1x VGhlIHNwZWNpbWVuIGlzIG VxlOXtczBiNOEmsi82N2he DJIoaV1pw2tuDsDjQMAjPZ IosBOupIB1IKZuwF4omS70 iwEgusWBUI5tnTIaZA7OCN NiMFxlcGljWHNiMCANClxw BTDcZDqma4ArXAcygGxkEU TcRsKzDXmPgPffCDWUW9nd wXGxZZoiNPWCOBpPZ2LDOE 8WMOKugJDVGPC7YX8rCGvj STDzD1MrU1TgapC0c6ehhU slu3OhhKFbUS3mmJLwJS2J XHBhcmQgDQp9 Disclaimer (test code = [id number]) t2qrtSWeAZAzh0zaLGOltN FuZzEwMzNcZnRuYmpcdWMx DYybryUvDPhyt8SvJ3ZgGz AwMFxhbnNpXGRlZmxhbmcx FVJoEJT5xeHbFRViDNakXA PjJDpiGg5guIPinEpgRaBp HBZet2oafoTUPOkzTkLtN4 62JTHjAOxym1zey7PtSMZs zRGst5T7KJRWkklutEp0yV wdE55tn7L9WpgqH8uxHGQv TEQjS3EuQA9dVQZpQwq6YP Y8YQR2WPBcKQRyK1HfQK6s UKAvgCZoQWy2q0vcrKubML VxEDL9u0opITtpsfTdDR0m xk5jxOo4r1imtnQmXWPyIY VqoJHCIDGlY7AjxWmyXz6d cQq8sQzvYhxpDFZ6Lbn4VH 0stg82voa1gPwmLVUkrira SkN2QMazTWYbyuxzCDp6QF kqQYZcoSF0JUNunJBkD2Aa FOIiDS7yqgt5LGX7RZkaOH EoScD9WXRgcCJoRAHtdVoq ZCvju622EZJ4PwXkAA8dF3 Yua6M9dS8yaLVjINCskRGo CaEfQDPgpb0moUWwUCcon3 PjXLV4bqU5oNFjsVEhYDWn IX24Yfrcq3EdGmqeu6QdN1 5hwSX7GFdzw3waQY3fHsJ8 fzFwGFewb2cgjT7gYrT9BI glPN7cFL1tWKTpvR0kmjed XHBnYnJkcmhlYWRccGdicm OzTb8fzOlvBLH7BKlzN2xu pF4eApO4PXgvL7bmoI2rUB z0ZTwbbNS0DEXxvL9kLU7l icqsi9bqQNtbIVqjCRMdvz G2vbB6TFLidGLrR1OpyI5y CKXoDN5xonuuz9apYLH3FQ poUUMxKVL3KmTlUQVjw4Kx wse0QoFup4CnrQDiSLkwE1 6jk630URWjpqOcN7ctrJWr zlefzTDfazzqGTcuhfZ7DW DkmfXqx0ZeIIJkRED7JGho QCvhfHFvJDMuyHfiz5qmL5 RscGFyXHBsYWluXGYxXGZz MjBcbGFuZzEwMzNcaGljaF czTTvtLdYuETDuVNegF5mj RpQpT8KgSHDvCnGtpBRdQ7 ggVGhpcyByZXBvcnQgbWF5 GRjaQ5i3FKWronUecIb8en YeEpCdPIPvZAZ5MGjiaXIe PHOqx1RvxcfdpQQgMs4bjR JmHMZmfJ7aYVOhFLHlAOad FU5amPa7YOAThJZqqSVpXn GEYYPpWW84asHgCNZFgxvj r1T0ZDdwFIGum6FjiWSyJ8 bhy6LcSGMbb50xYX5yn9W0 l8wuWRS5TX8hc6TfHWXkvD YosBUbOBLrn9Awpaznr2It MLTxotJec1HtXCBsdyPlqC BfZCLwwvAsmv2sysOpIQOh TRDiA2DajfljwFqexiLmAO Jbdl3nigSoFFB3HMORMAHy CVMsh7JcfO1igRITWQS7xS Kxac8udtNGmRLrTEExtv56 VDNcCH3aO6udZCPjXRZmot BowICiz0NuNQLsoTS1hDFs CO6FWtCVm54uGGMoQKRQec MvLWQvzKtvwUL7hwS9aM0n IChGREEpLlx+IFRoZSBGRE FwQA8kltMza7LoerBlhDhk ESEfyVKqz6QhjJTvg4IzcT rhh2YpyBTcrOCsJY6yRDSg clxwYXIgVVRNQiBMYWJvcm F7c0OmOODyXDHlVBQ2vWkz oej0SPMvtG3rXGJeX9cczu shPLdsMAWbg2NdeQ1skXAB pSWgq1BqcAYanCZEpZNkNZ 1sjjRaEOfLEGtSAXY8hgGp WVOna2BhMWznB6fmS67cbC porMy3mOI5EHL5kY0tMqg+ IFxwYXJccGFyIEFwcHJvcH HyRYWvvPgmqjLnE1FkypKj wT8wvYQflxKsLV0xZB1cT5 V6dRZuBVKucyOra8iiUEpt dmUgYmVlbiByZXZpZXdlZC Rqz1BbARrfZSX8ZBhkxzFh bmNsdWRpbmcgSCZFLCBTcG SniAYuXCV3PDxznhNbybMq SC4osR5ysLjxgL8rpXIalH O8ifghXNNdXPTllWplIHVw XS9llZdqmV5fKpWlRvVeKB kuCF5fOUQyH0rzoTQpZQTq GNDrJ6dxGuXwuL0tnQrbOY xjZjJcZnMyMFxwYXJccGFy XHBsYWluXGYxXGZzMjBcbG FuZzEwMzNcaGljaFxmMVxk SpQlIPQfURjkY5utAzWvT7 KxEMOpSgBdrKDnV7dtSBuc JGO8TOPsRS5itAMqIA75qQ Ozi3xyKKvqzVubry4vL63t wNNrMRqqqEhxNZPui60qa4 WaXNZsooQbsu4sCWZggpC3 kU8lMIJuuMdhEKCzqIZcGP Qlw6CdXJznfHFkckKyZUsq NNGgNVJmsJApupT5omUslk PkxhSwZWKebBzuLQTwc8Sx OLWeTZgqd5Crla6qnPZrBQ SiegGAxTbbxVQugN2bF1Zg REYdFMKpfq3yETOrdK4zLE oln6PsatgkVCQzUSUaFBXm xzPavn8eEWQytHBBIU5WGL ofoAIfv4UxrnQeN4eGWNZ4 NUQwNjYwMjgxKSBleGNlcH LkNXYgwv45HSYcfV1xgErp PMPysC8kiL5cuKoihS2sQl MjTpAbIIbyIQ5iHBEtK1fy jPHrTHWjXQXbC1ziItNwvL 9jaFxmMVxjZjJcZnMyMFxw YXJ9fQ== Embedded Images (test code = [id number]) [facility] [id number] 19:23:05* Test Item Value Reference Range Interpretation Comme nts Case Report (test code = [id number]) Surgical Pathology ?Case: [id number] ? Authorizing Provider: ?Dominic Keita MD ? [...] HPylori ? Final Diagnosis (test code = [id number]) n5sfoZDoTYXip2xoRVNxcR FuZzEwMzNcZnRuYmpcdWMx EBohzbNlTOthnImhDJQ8EP HnVS4rpLgpxKb7mBztOYOl ikY7lQFgWSpjy8llKLO5c7 vyzgvoKHLtBFkhZk3jrUHd wSezZtOfYADoJJz3yO56GW OlkG3luLDuGKw5SGMesBIr qyUcRvIrPEJseHKvlNG4RV JzSI3hhsyvLKlvGPxhCFJp qnR8CYVikWXxN5PkAOQbPC 3rrqboMRD2LGpaYBGrWOZ2 XlZvTGFlu8Pfleq8XrSmgM FyZFxwbGFpblxmczIwXHBh rpGUJgJYUO4APWSJOTQUT3 iFKTMEUN5LEIHHWgprxWEg PVXoAFVeYSJYMU7HVNTpG5 aHElFcXX4PWCNgVQJruJVz UQKcqoKRFpUUFP7RHL7VCB wgQklPUFNZOlxwYXIgICAg LXFiOVwKT4UVUWBzBAGFU5 TKMHjQNJptHm1pBHDMTP6Y F2uLC3GYCDFVNL6ZVXknIC CiMXFaVASePD1FTThiSWDB HX2DAHQHONVGHCrJTHURUM TGCVqWMKCFS9GYSIsUQOTj aictVGBcKg6qG0HUJZMQTF wgQklPUFNZOlxwYXIgICAg MHWiSQBRP8MGAaNXEZ4JL9 6YRVMVGGTGLU8HUCGLMIbV CP1UDECTQZSHSVVTZ8WgsM FyICAgICAgLSBOTyBFVklE NJ6UEFZIVsUUSGgZPQSxCW lTRUFTRVxwYXIgICAgICAt GJ7IWQglREWIEC1UBRBJQs dBTklTTVMgSURFTlRJRklF ORKCYWCPQO8QKb0CRAPNMg xwYXJccGFyfXtccnRmMVxz m3MgG3TcBbFuWWusgdDhAR MaLtnksyhqHCAhDIZ1dyGd ARDoHJmhNPLqQBtxHr9xmW NkpWdfPjCvYUVch2dvpuRN BCcbNaKxA166AHFpXMokv5 woe1NbHKOihBWmz4A3JCYS cggbsGv9j9ljKsViAeS9kN BfSLexK6gcrmPerZFkE9Fi wHCbuTl7pPveI82lo9D2Ql zuM1mjOQTuRGQmG8LvPD4a IVKkQzw0TDQ1KCC0HZPpBC UhL3NkFD2eWVWkhKZkFVz2 f0tvgPicVRHgFGW2y0uyKB sozjE3JS8btg8vhCg3o5wr czEgRGVmYXVsdCBQYXJhZ3 XfpAmkHs7oqPb0iVnvPdis FGW7Nek3VS4yvb81eiw4fS tpOWXhaxojTeN3OHwwLSEf hljuUNf9BFhvUHVdoER7TB HlmGTrO9CqKBBuLI8kyfi8 WQW7HQqtUPIoXfU5SDAsxM TpUNHvbBnvCOfph210UVB2 WcEvZJ1jR0Usx0Z0oV3loT LjPEOvlIIvWxUsKVEeyk9g zMCqILzaw3FwKHG3rhB6lN PjlXGjCQGtRS90Ctiac9Ww DxyjYDL0OTWfsmMuc5Mpc4 khGiXpqsVvM8soL7PxXTMe LAPnGRIoZhAsckUjy4Quh4 YxtTZcoQo0m7sxGNRnPKAa iSxxc3ulTTJ3YTSeS3V8qS Xsy8vcLUfdZPJusEK0btH6 RDGdkSTiT0FncG4uEAGeHN 7yini9y0esYSH9XItwZWGa DcM3ijM4DTOtwMVmUWLnlV wqNXtpw878YUX1ThInQNZa y7OeL9PakZcaW18djFfoZ3 2kJHUzuFpzuY1qqZbwfP5v ZjBcZnMyNFxxbFxwbGFpbl xmMVxmczIwXGxhbmcxMDMz WLqpL6tgTzFeFPYmgLfhAF aso9UiCQEnPQApRsjwfhWr XHBhciBJIGhhdmUgcGVyc2 9uYWxseSByZXZpZXdlZCBh aUude6OiL8sjUJ9nI3KelQ KeenUmphTgODxqITKra5k2 eNSbeQobu0ChqJVgKJ79xz MyRLJaDIM6BEMrt5suXT92 wtllZyIbnI62piImvyXjHB Nxb9qxV9rjgLWil6Xzk6Yu lzJmPWaaz0VzCR6maRVbtj kuaSI4WUTfwRCmtqOpdoC5 uAdzNPMroO3ozL8umYnazD 9pZxVmCvWiPEvkKN7hUNDx L4slpJSeOCMaSQDlP9qcRg GdfU5ipYyxOwkrigZ9KFUw cn19 Clinical Information (test code = [id number]) Shivani Schuler is a 47 year old female with IDA1. Gastric polyp x 6 r/o adenoma2.Duodenal Bx, r/o Celiac disease 3. Gastric Bx r/o HPylori Gross Description (test code = [id number]) i0sjdAVpHIYnyKKERDC1AG KrKN2qiDyayUq2wBbwXSOt pzF5bYTgUKdbc1wkVJG3t2 auehMHPyfbZDUrKY5yJWtl XKYtFW5lUhGfVMBeRyMeSF BhcGVydzEyMjQwXHBhcGVy kYY5AMZsEJ3jncfpKBgpBY jaIFNghaW2TKZiiAAuG1Sv HQGdCP1tbscdYYN1IMFZLq mgTo7pfVXsxZfvFnJwHcEd YXJzZXQwXGZuaWwgQXJpYW b2oC0QQutwXEE6RLFUSnkf ZflshOqdm1KrjMYrNPHpXL xcaWQgNTEwMDAgXFxkYiBP DrAuUoZ3Pjb7USG6XfU9AF j3IWKIQXBdPnrfTJL1QrG4 DWf1JZJsCP1gPFjbeINcTA ycYaskVCqaU453VDeoFJZm H3XtO2XsZUqjSqCnHMwvUT WcLIFpAGbdSHDnC6CUEELy BQY6YmVkMDYuSDm4JCawP2 XBFSPxIIAvElS7VAGwStD0 PVq1PQIFNv5pBGddQgMcIU t3TAO4OJk4DwLcCQGhLxSz UFTeOWZjROzreTVdTW6jlC gzCFNkEX9GCIUlGAjrPQYn KdGpP0NHZ7zSYE6tJCxzcF JjaFxmczIyXHBhciANClxw ITGzBE3PEHAjWWpaCKf3sz HtLCHnAtUeJSUuK27lz3LF o8CtSY5GIZh9rpPgeemzfK 6mHYHxktPqIAfYkMMahD5e fiDDITpsGMVxC0RhxlMfUY khWEFlpb7gqDqvSRopIfRh bGVkIHdpdGggdGhlIHBhdG herpHzT6X8smZbJX2dNLLK HEIdhF7nAYQoCUCbm0JnrC DecWxmC7PryNOoLxHgz9a2 nWR1QEXynyMxFBCczNHbSJ Nwrk3jLJgkMwFlO4K8NEAm KITkl70doSY0vxQeNjGwqQ w6lYEuWNL1GM6epDrctsHu r7g7gA4mPIVfp8V6IUYke8 Z5KAAissObbJFrfXXvMDDg SF3wkwTwPF45KFYpUTgnOT qoJOD8UAU5YNGbdVBql8ha tsccLu3jIIdvIZ1kYVtlXT 84MVHzWHndWIIaF4MpZ0O4 VEnzDJWrEXBdoDUeeH3qty BabdPejTb1RZOoKHT7lNTr fObvMBReFswxuGU5XOUpWn FjvuLvk0VafWk7uXVqABmu KBKgfH0meD3yDBHiYLUann IKPuwjSWJoAQmpx8AqBTjm cGljWHNhMzAgDQpcZXBpY0 8cn8YDg7Jol0fykDpkr3Wy aHPoQD6jsHXaWV3De8rjOM OvaKVyJCA0RHhho6quHElc CFM8RIIvNsXhSHCxHX5TZz AhRWbtULa9YMkrPVd6ZWz6 BR3OJgQeYMOkAzb5KlC0Nd BeLIv3FEkuMY0XHLA5TXIk XQPqQMcsVNH2JFPwHQu0DE IgXFxzcyAzIFxcZmwgXFxu X49sxONhHWebDkUnJMjcmL qbLMVoPPJ6EL5EIVWfZkQs O7YCT9tKVE0kIymrbsKzZU NljbOBMlalLWWsMO3AUAQb UQotOHd2ioLtDNDzAlBcAI GhL22ep5LBd1PtUP5VXDa8 amFjznrngL1jREBhmtGiy9 IzMFxlcGljWHNiMzAgDQpT sHTffE0mqzXMJUidAPGzE9 XfbeRxVSmwVATqnp3lkQpn IGxhYmVsbGVkIHdpdGggdG fjGKTgoGknmqYlP4I8quTf SL4gORNRMRHigV0kWYUzNZ FzKRTnIUZweR4eCUX4h4St yeByLSMESIJroZhkOO41vW BjZWxpYWMgZGlzZWFzZSBh lmUddhCxy41ghmUls7YiCF 3clNiuLYoBEWtsBhOvPC1m KGXdatSve2ZiZA2wSWLjwG MtCAJkqmqkmVWdBNy8yJTl PENaNnOtbWcdt2SfLASzRD wqKN02joPpSX9uKDfmBQ6y XMasZU0iUAHpCHRmIYEqIw HsrNLlOzGvwITsLnBmR21a UvUZdXWva3XtQ2pfJW2wiU VcXefclUDfXIEurIgpl3Mr uGZiYFMyn6YknQNeHWavGM 3hQMA8Gz2sgCVbGLKeckK6 z7EmAWxsWODfMpnxDVBgNC xku8WjCXUenQFAn6TvEG3J XHBhciANClxzYTMwXGVwaW BZx9UmEDDHSfiyyDscYgPd fSKtHbW5EWWxtXQvUOQ0TX 8brZvbRVBkNWb4FSfsOIWy V5UhW4EdLQzdNfUuOPcpHN BtWNDnZHoyFAMmE4UXKKVy LPV4IwOvIYOvXCa2QDkiG1 ERAKPpUBIxQmI4WKR7DqX1 VAo6GHXAKc9sFSgcKzWsUI EqMnK6USy5VqJjAZLyQqDz KJNsZQIwHEvylXJjCX3egF piTBAnEJEvAOG6QGDiqKGM m9WaQURfBKarPcOvIIHMYI GMWU6IJtCGULHnZjJwyVNc YS5TCGEphiVyREyntFhyqT 8ptRDqU5vxAqJyDpectJlb TmVzdERvYzEgDQpcbHRycG FyXGxpbjBccmluMFxzYjMw QHUfvBYEy8EgBPWTRhQkSC NpbWVuIEMgaXMgcmVjZWl2 NZMqfE1eFb3dwKBhdU9rjK LgDIpnDVWhk0p1tTC2rLUw dAM6jHLjiEvsMoIzJJ4hnZ RkTANQNI91aZWxgiCmMNBu bI6uNTDgWIKpUDA6atuuFB RJNGR5qPBqf3T8EFwlWVM3 bG6lwBnsJkDyP5L8GFYdRM Vma42qjFO4exMrMjBdYTLz rh9beG4eYEykbtAlcBddru Dlf9P2FCIas9H5VHNgfvWl eTKvhCExEGPjOyJ6ZXQdOh G9JERcOPPedKUjGHFeOG0a VGhlIHNwZWNpbWVuIGlzIG QkxZJxptMbPDUmyc94G9ar ZSKtsI4vj9jmJcVyOEBwBD JzoPNhsPM0MPLmzO0cyA22 bsAyunBXBN5zuVBiKQ3XZD NiMFxlcGljWHNiMCANClxw IMEgRUkde0EaGIozcYiyJA NdYbOwAUuEuFtvEMJZE2al wMYdEGayUFVWIWjWX7BNBL 7JOGOxwSTJVXJ8XI4lTBio PQHeF8ZgA2YcugB2k3qwaT cko6OynDReZN3ajUKlTO0O XHBhcmQgDQp9 Disclaimer (test code = [id number]) v4rhdGNxGFRfq3mmKSWvuK FuZzEwMzNcZnRuYmpcdWMx TYusmcXdOKtgy9SuO6UvVi AwMFxhbnNpXGRlZmxhbmcx XSYbUAM6beYxIGYnKIecSP MqARorGf1cgMKnkYjzUbFy LGWhi2wgaiJNDMbgYnRfF5 89CTOpEKezx1sor8HwSRYz oPKbw9K5ZFTNbsyrnEa4hE txX68zx7T2NcneC3whBWWw DTCxU7UcFY3yVMMfMzw1OL C6IDP5WCYdUWWbW7WdGR5g UEXemELcRMb6h0nzsKukDW NzMKY2t1ebFImmbaMpIR6p kr1ceFa1w9eknxIiJVVzYT EccFGONUAtB1XpeVomHi1a vYb6vRmoMkqgDQR0Oes4ZR 1cec16dpn9nIupSVVbhfss NoH9PPsrRSIhlcdjCWp9OV htDUZqxLF9VSFevNMlS2Lf SWRaVM2bmqf9BBN6DKeyGU QaDbR9XSKwnHWySEVwsQgl POfpx755MUR5PmGuQK6gQ1 Bxz8N6iR6qeNAjMIBvxRVo RfNlJSBrco7apZFuOEpqn1 AbSVN4urO2rWKstHVqOTXu TB12Tkdhr8PxOdqrw2OoD5 4vyCJ3BMtnb1laUP2pPxW1 seVkOUzug0lxkY6gOsZ9SL zwGE7cEO6oRVVfqU6clgyi XHBnYnJkcmhlYWRccGdicm GqXj3etKznOCH1QYhaJ7wz xO8vKlL5VYllW3znoW8sCO e9UVlrpWM6EHTjcL0mCQ3v zhrhf6qeLKlrYZdgZMNxow Q3etK6UABigRSpB7WsxQ4s IHCyCP9xhwhdz2goBQV1XE tgCOYlVQJ8PgUvILJlg2Ng cih4HwRtf1FyjIUbBPjcY0 7on372YVKlcbFoT4pudIPk rmiueENwxbftGPpnapE8DN UleaAoo4FwGMIbJSB4ILef XIoyaSZlTZQevRvkv3itQ4 RscGFyXHBsYWluXGYxXGZz MjBcbGFuZzEwMzNcaGljaF iiOUicBdQeZGXkCYdlQ2pz CcYpO5JsZGAbCvGxqLKtJ6 ggVGhpcyByZXBvcnQgbWF5 VJlxE9a5KAYespZksZa3ob HmOyPpWUQbYOL9MTrqdAPd FIKvb2XhvzcbpFDdXj5qzR VcKJFhaQ8wJKGlKFJfNKwa QI5lpCy2JKLZyZFwcJPmMq TGBADlAN19gaIrMUMQxpws d1C1YNnhFRBcq7PmvCWeS9 lbh5NpCQXcn99nFV2qj1U9 c6hfVYV6IB0jj8YtGBCkpU AffGNhSIFzz5Eetrfge0Db FBUmbfCly4EcEPCqzfYenL EsCUUkzmJdxj7ipeLsRJBc WFFdT4FzmwpxhZvjanSpAU Tejt0ociZaTJP3GDFULCMb LNCyu5GmmS7mzBXXLLL7gC Xwcs3okvBGxXHjYZVxhj48 OWIkJQ1sC3fbQDWaXLXumq SbcVSct6MbTCVehMU0tLHw AH5RVrRQl76eADSqHXBRca PoWLNezYgkzXZ1ugZ8qH3u IChGREEpLlx+IFRoZSBGRE ZbHF9pgnVbb2FnifWwaXkq XFNirHYwr0UaxCTve0DwgW fva4IdgEVcfPJjCR9wVYAl clxwYXIgVVRNQiBMYWJvcm Z1k1UbEZIuDUIyETS8oUzt sjj0QTVmhU0zGZZgX6xrhe bwZPpcMRXba8YprE8enQJO gSIdv4YowIVgjUJTdTRxCG 2ujrHvFQkVHGhJLHN9gqVp QCRho1GkOVynS8bhX48ssM pgrNb6zEQ7KLE7tO5iMpd+ IFxwYXJccGFyIEFwcHJvcH EmOAKehDlvdoHmR3ZrixNd pZ0zfLGnltZvBF1nTB0dP5 Q5vXKxAXEmmtVnj2qsGUff dmUgYmVlbiByZXZpZXdlZC Klp3WjMEalORB0WFacuqQc bmNsdWRpbmcgSCZFLCBTcG DiiCYcLXT4EXxckzGahjQm CX0fgJ5tjYpngH8ajGNhlA B9jtjyCVZjCPDpkEtgFWKp ML4zkFddpF5qEnTmTrQfHH bbWW2hKSBqI3hqqZVuAGFi OMAbB5knHnEbwS0roNitEX xjZjJcZnMyMFxwYXJccGFy XHBsYWluXGYxXGZzMjBcbG FuZzEwMzNcaGljaFxmMVxk LdUkFGVdLLgbB0jpNtMhC5 FsXOCvKbJpyWWyJ8fdNTss AFL5GEKgIC4ojBPwDY47zR Qez3wuWEtufWchok8wH51y mESdJUvjcIciUHBiz01og9 XiVILiglBxeg2lTKXgvlN3 qP9cNETssOwqLSCojRTiCC Tik7ImOZsnzYOnhbMlSElk XGLjANHwnRUarhR8agUclk ZzzgYoUOEjlQsmANPvn7Iu LZQoBXdzk1Bexl7zcRYuRQ EcaeCGbImteAPlzV0sY7Qp HZDnCYLqou3nJHWxqT5pOE kgp0HlfxrpXHKrPYGcGNQi ppMppw7bFZTwlQIKJE8NSC hkfMUkv0HqxcXzW8zYLXG7 NUQwNjYwMjgxKSBleGNlcH IgTRHvxi48CEKaxJ0kcXxv SCJfrH9szA1yzMlxrJ5oJh QpUyFxYRjaRD5uQOTxX9vs vGWzLXJaJRVyI1nqHbVbaR 9jaFxmMVxjZjJcZnMyMFxw YXJ9fQ== Embedded Images (test code = [id number]) [facility] [id number] 19:23:05* Test Item Value Reference Range Interpretation Comme nts Case Report (test code = [id number]) Surgical Pathology ?Case: [id number] ? Authorizing Provider: ?Dominic Keita MD ? [...] HPylori ? Final Diagnosis (test code = [id number]) m4byrQXfMGYqg8gnLNSmlH FuZzEwMzNcZnRuYmpcdWMx DYdmucLiZHrjbGwqYCU5PV KeVY9eiYsrrRv5mPxkPALd tbS5xRDjYApjy2cbWRL8e4 kzxjopEHEdBQtcFg1sqKPt bKwhWnAzMUZwBWu2oT35YR BovT0etAJhBEf3QVLvsJIf zbPnOhJlNGFsjOKqhXG7WV MeXA9tpuhbEQonSPbwLFYq trC3BBGdmDQnH6NfXGOqRA 8tvgwkJIL1ZKteLZRvKTM2 KdHpBSFdu6Azmxp0ZeEnuB FyZFxwbGFpblxmczIwXHBh xzYHDyIBVO4SQLMEJDBXA2 uMHXNDBQ6ETCIGBgmgsLJz CVMcVXZwOCOHKN5BIBTrV4 sWWpHiVW2CXHHhEMMlwFMo MKYuisDYQwZTKI7DTE8BDX wgQklPUFNZOlxwYXIgICAg SWLyBVxET4KANRWoNWJJO8 APNMkANOnhNa5bXUBGZC4R F9eJF9AEXOOSKQ2TXEchNJ QqFLAzREMwRP9PBMwyOJYD LL3LKJUWISOQGMmLSXCLRZ PBERbCBTLWF5NOKJmHOLSr cvlrXOYdUi3iT3BXRCTEXT wgQklPUFNZOlxwYXIgICAg TUTpYSXPC3OCAcQUPS4SP3 2DNKTQAFUDBW0MSLJLJByV GT5GCYLJPMGWUBCVP7UfhE FyICAgICAgLSBOTyBFVklE CI9MWAIBSeJNYFgIZNPvXH lTRUFTRVxwYXIgICAgICAt BN0QKSvbYZJHOA3RENIAYz dBTklTTVMgSURFTlRJRklF YGJIBGOZEB2WYu2TCVWFBo xwYXJccGFyfXtccnRmMVxz t5PzE0EnKkUfIOhizbWmZU YyBvuovjlrQXQcRPW3gvOg CRAeOMhfWFIqVAwgZp0vrS PouChnIaYoGJMwy5hwnrHW CAtbDcArP149DEOcGFgxh5 vjs6AuLCOzoRWhc2Q2AWZO ayinhIz3e4doCpQbOxY0rP NpMSdwH1lxmqPlpFHiA3Fy kEEjhIg0oTohS44kq7U7Eg asZ3jqLMOjIUKsL8FdJO0k LOMpRia7PRC1IRY9YLMxGI KiT9XaUE9bZTDybRDiIHk3 j4vjjBhcCIAdAOZ7x1dmAW gmedF3SW1wms0llKf5b7qb czEgRGVmYXVsdCBQYXJhZ3 EkqOhmPh7zrIq4uQmeKhed JWK1Psh7AA2lkw05uaz9nZ jlUIJywpgwAhX5ZLlgDBVj dqowZHi7HAsnAIJwsDI8VR TgfKPqV9AiBLOjMP7rway5 JLH7XMkjSERbCmN8RHFngI SuIWStbJxuSQazg939GQR9 PpFtMS5nR6Nks3P3xQ8faA NlAENibTJhRrHkDQQgtm0m lFJwYQuta3XhIXI6drO6fJ ShsCDkPUHpXZ38Ioggk4Og NhntBTM6GTZsxjIiw8Kli5 ujZjLgdbNfT6hbP9DuIIAx DTGhBHIyYsLwkyUro9Znk7 TspWZmjWz4g0zmZFGgDVIz eBhtr9qlXRU8TJItB0P5hV Cpm6rjZAycGANxiWD5fuZ9 PKFitUXfH9KfgP6oCNQqIT 7hgrh0j1bcUDV4GSrxDAMq OmZ3qdR4VUVthVMkOEYqdN pgLCpgk627ZWR3YeLuIYSa q6TgH4MhnQuwT39lqWydW0 1iTBVyaYxueI4diNrgdE6p ZjBcZnMyNFxxbFxwbGFpbl xmMVxmczIwXGxhbmcxMDMz FVwmJ1lvFfFlZGArqNmaWR kpv6WaGRKyEFJyNsrzxqPg XHBhciBJIGhhdmUgcGVyc2 9uYWxseSByZXZpZXdlZCBh nEhzj4VqG7sdLH8mC6GguF ClxqKtakGbLAnxGGRve8b1 wIEcgVlti9KkfNQlUU81hc IaCRTxSBT7ZQBsd2mhIK36 rksvOoTmrW55szUhgvRyPC Dgr3mjA7jzuXJhc4Ayd8Bv fgPrWDzks8FtNY6vpKYhtd sipBB6UHSehGYkuyInioV0 nMnmIXImnD8qeA7njFqybG 8oEyZbSrVoOFtiSR0hYJOq R5pabRXvKNFaVKDoU8dyPx XyqP2tdUekAsgiiyW1FRTu cn19 Clinical Information (test code = [id number]) Shivani Schuler is a 47 year old female with IDA1. Gastric polyp x 6 r/o adenoma2.Duodenal Bx, r/o Celiac disease 3. Gastric Bx r/o HPylori Gross Description (test code = [id number]) q3tigHThSTQufJEONXX1HD WkHP8abShplZq6jXluOFYb ymN3vRYfVFnaf9ypHCE5j2 wchwFEKsusCHBnHT2hXKop EJDjXR3rRcZlVTRnIuHzHR BhcGVydzEyMjQwXHBhcGVy vOV8GWFiQE3uzwguSQkuNV rpDWPyvuA7IMZcjGWuT5Ke ISImTW7sjmxkBUL4XASXKw bmJi6xfXFopAhtMeMxTiLv YXJzZXQwXGZuaWwgQXJpYW f3zB5YTjhnPUD2CHPHFgnt OeekkNdbb6FvxSVuEBHcRV xcaWQgNTEwMDAgXFxkYiBP QsVdAqK6Bdm4LDA4OzP9DI i9OCVLKUIdGawpFVR6CdB1 HAw5BKWbEQ7hJLainENwVR tbNmmdJBblD996FEgxADYh J4XfR5WiZWwuVqQyNUaiXT CmAWRyAXtwGSXmA0CABWBh YIL0KaTkWHWkDEy9PDqkO5 XXYSImXQUcMpZ7GLYaPvP1 JNk2GPQCDl0dZTppRfCaNB h5TZD4QTo9PwZoPIAzAtTg YAStBYAqLZzovMVeOX4rcD dgFRAmTK9FXEKjONvvSAIx UqNcH0LUB3nLFN6zRSeqmR JjaFxmczIyXHBhciANClxw HFEyDL7ESSFbVLzwJTm1bt MgWGJfBiQpUPNxB71uz3IE u1TmMM2ILIx7pnZqkxkhmY 2zXKMgmyQmSYuTpWSkhX0t tfLBOXvjZGTvU8PczjDjXZ nvJYZyxj3oxTbpAJsxVkPr bGVkIHdpdGggdGhlIHBhdG yvinRbG4O6ddQwAE5tDHJY SATzfL6hZBQmDXPmi1IaqG LelCmsH7OhbZRfAdDxf6n4 dGF9UUQjtgNgKHLltRKkAM Tptb0rQDfwRjSxZ4D0JRQc WDSkv39fsRV7qvKbIwCquT e6xWIyRVE8KR2buAqghbNi j3g6qN7tOXMfv8U8LSXae2 I0IISrhbFgfWKuhPTuMVQu ZY3sxlEqXC68FQXdQOuzSM rnGCK8YNM1AIZybFDph4ja ypveYt7pOLkiGJ0nJBmhKQ 22GMDbJHetJLAuD3KrR7U7 WJbxQCYsGCPytSMtxC1gde NyzbErkUo8VQNkDYX7lQVe jMvpTEHyRycssUZ6MEDuCx OgovJgn3HqxMj6mOMrURph WBBxaI6kuI5zIKQuZKWdmp LAVsctPINrJYwuy1WvFMqm cGljWHNhMzAgDQpcZXBpY0 5ym3NJa3Obf9tbyOpfl3If lFYjPO3ipPDbUK2Ug4tjFP WzrWZpLEP4OTfat9izKXcj PRM2SHZhZhFyQVTkOA8COc YrRGxcRSs4RLsyEEu4YRq6 GL2VHtFdMKKlNcz8MsK0Fk UiVVa0XZjyBL5VWJK0YUXp RAKwBBntOPT1YYEtGBy2ZL IgXFxzcyAzIFxcZmwgXFxu N32huPCvYZhqDpPzFXoquG qkLVDrQSF5CS3JWNMoPrCv C3HYP7lXBT9wCanmpwVeAS IuzpGRTppyYJJvIK7HFATf IAhnCIl4xeWiDJYdQmZxPP XaA91ie0ZBw1JyFT8KXFe9 agEckcmonZ1mQQQknuEyy7 IzMFxlcGljWHNiMzAgDQpT oIFzsZ2vrsWMUJvzZXZgR1 GusfByEDbkASLhjc6gcTyu IGxhYmVsbGVkIHdpdGggdG yyTFEekLnfbvQhL8M9vzAo GQ1oVPWSEGZyyZ5nPBVyMX YkCTCfOZNsbC3fIEA3q3Tq zfTiHEJRJRLmuTkzFW52kQ BjZWxpYWMgZGlzZWFzZSBh exGbvfOdx78nhoNhe5EuVU 4xgLibWUoBLQsjBgJfPN8d EGParzHtq0YtRQ3iWRUbiU JiQMJbcxxxbDDcBQh6gGTw BLUgDrTesLdvw4EeRSFnTQ xoQJ80quJvVC2zVGxlGX7g COzyLP0qFOYsMRYbBAPzQd MagSWdIfLaaVKpTbUaD18t TuMCqONut5NlM6tnYC3paX ZhPuchvGOjMWMaqHago0Gv vRKaDNDjb5AlsJGfZYjbXN 8zOQK6Rx5ibWJnJGYoejS3 d8NvARwrMHAoMmfpICFuVR vqo7GiNBNciNHWi7LaJY9V XHBhciANClxzYTMwXGVwaW UXt0RoYLQOPabdjFpaFbEt pQWfJqT5GAEarQUlDOP3OJ 8rqSktSJHuLCo3VSbbZMLj L6NfE4VgDYzzZwLbXCehKV VaPLUkFZkyCVXxV6JWAOHx XRI9MzIbACIoGFc2FJqxZ6 VKDCCyYGNxVlI0DON6JyA1 CHu7SYECAt9jPJbwMaUnPE TbSqG4JUs6VjWfZCGpMoKx HQMiRDYrDQxdoJAnIW1mkI inODBcCMYbQKB7POMjbWOR v4BrVKIcVWyrPdWvNMCGIS HGOA1NLiLWGESiExJtmFZt CI2QZBUnvyGaOItilDgpkL 5meASvT8raHwSzLjsotAcl TmVzdERvYzEgDQpcbHRycG FyXGxpbjBccmluMFxzYjMw TBHmtFUAz9GlXVNTGwAeQF NpbWVuIEMgaXMgcmVjZWl2 CENtyM9cQs5gyGOwqX6yeM CeOKvtQESgb5p3dXT1gGHm kNM9kMMbcHklNtCnVT3zfF FvFFLZFY80xWNgtqCrGRGz iS1yYGMcUARtSVJ1jlhbZJ JNVJF4lWUgd9C3MApdJKP0 oM0eiItxFoRfK5Q4FHTiOW Aoc00vrHU1ufDdGgAkHYJj pc2nqW9yZIhmmsWwqOrikk Dyf7Z4FAHch2D9JQJexzZr fPQyuIBcVNUyCxI7CPHxWc S2SIBtFZGgfTLzCHAtMC1b VGhlIHNwZWNpbWVuIGlzIG YeeVTuqxDuGGBave34H6nz RNPmiT8tr6rdKbVtNNPdCK IscUIryRS2MSNsdB0urN94 zdJcikLSZW6wkOVmRJ2DKD NiMFxlcGljWHNiMCANClxw SVOmDGzce5PhYFdgtKlxZR JlWuBrVPeOeLsmRBAUI3bh jAAzTLxvQTXREAuZT8KICK 3OFORtdSOWZTX5DY2nMRrs ZJBnG9YzE1MtomI7q0youX cds4AtmQZrHA7neAHhIE0Z XHBhcmQgDQp9 Disclaimer (test code = [id number]) t6riiJAtMYAqh5vrPAXfoR FuZzEwMzNcZnRuYmpcdWMx HCxqciRcWVdhq3HtE0TtDv AwMFxhbnNpXGRlZmxhbmcx AAFtKYW1cmKmQDBiMOahDS QfBUvcAl3wxJRmlXocLbHx NEJcw1dafvHEBTvpGvDdB6 29ZMNwUEveo5iew1IcQKTj mNFwy2N7CVBJkfpupWf1cI gbI00nr3W3UeoxS1opNIJo ZQGqV7AzFW5kBDAlWse0PD I8XKI6ODQyDZBfQ5BwHE3x XBXmzZSvGHy3w8fsrJajNR JbWXO9d5apYGplgcMhRP8g nr6ykUo1s0jehwVlILJxMC KvgMWOLCDeI2ItjWkaNl7a nSk0rLgvEqxsTEX3Zyh6QC 8dnm71hup1fUftOTWapmxc PkH9AIprRCIlrrpsZTf2JJ oeHUYxsCU3PCLolXKqB7Wf PLUwYX0nwgs8LUI2RJonHI BtIlK1DLGyyYXuMPIwvXny NWimt448ZPY4ZoDxHV7lD8 Qhy0G3aB4ypGSjNVKsyCUb XxSqICGyya6ukUDvKRxzv6 UjRME0pwN8qVInfBNoCJNw KH88Uucfi2PqYovgy4HvC7 5paOE8SRhco0dmWC6xHaW1 zdMyHOmxq9ncrS4rQtK8XM pvMH2pQK3lGNJkoD0rsfaq XHBnYnJkcmhlYWRccGdicm QhEu9ahYhhJQA6QTzbD1uf dX8lMgM1XPvxG4xxxK3wYG t6AXdksYR5QWKvdI5yQM2l evhsp6mzSMdpUMigRDAfew S9qaP2GGOqgMUyV6SogI6h NYDeGW0peffre4rdQGI8RK qkKBAkLJO5HkIaBFZuj8Xx zne2FiAyg3QmtMSaEChoR4 5ej755ANSaqoVmZ5bdmNCh apnkeYGaqlufGUcihcG8FS EhmpLlr6RiXCBoFLO7WPnq PJtadYUdTJDhpPktb4kqY3 RscGFyXHBsYWluXGYxXGZz MjBcbGFuZzEwMzNcaGljaF vpPPnbCgGzIZVpLFpcS3xc PbUkY5NiENEuNgFdjLIdR3 ggVGhpcyByZXBvcnQgbWF5 ASjzG6q0WRLqhvQocKn0op LhPmKfUAKkNFH9QEpcdTNi PKAqx1KmimynpUVjKd4blU HrLTOcyN0vPTMcBGXiQJdz SC7qpQm1GEWZoADneRSmLx UJXIFjCN06qrYzDGIYifkx s1M0DDhbDLZeo2PyeUMbP3 dwj9BiFTWke97vNL9ow1U4 w6cyPFE1DB8if3WsSTDxrK PniZQpZLWyp0Aaldfvt6Fi FSNpivDzt3GbZQUtpfZxsS YlGEYoqyHglg8clcLyGSZj DLTaC1ZvozaiiXtwnxApGL Waii3zqkCmUDL6IXOVZUVh QDUsa0OnyG3xfFEQRWK6tL Ddej0wxnPGkUTmVXQyub00 KTCvHA2rX1tjDLRpUYMetd RmyUArn7XrGLOkhNP8pWZc VQ6UPpOGw63aAPQeAPNOhl QzRTDwvKhjhQR3zwH8bW0l IChGREEpLlx+IFRoZSBGRE VkOZ4tqiLlx0IxclEyqRec ULIzdZHnq5DwuBRqz6MgaW nxb0AheKIwwOZxGK3dGZFg clxwYXIgVVRNQiBMYWJvcm A7b2LtWADqQSSfCYY0xHlj fku6HHEcfI5hPXEtG7skmu hpWUcaEATiy8XvuJ1gjQRJ kZJvf4AhfJClwECQmXTwWQ 1pzwPjLBgXCYrTWVY2oqQz NIOuh0RhGIxbK4vhX11ikU wrcJb4jSN2TDT6bL9gOne+ IFxwYXJccGFyIEFwcHJvcH GlFPHgtLssfwDaK4HhrfUs yB4twAXtflVvXC6yZO3oW1 Y3xAJoQIGehaOsm0mvELqy dmUgYmVlbiByZXZpZXdlZC Ofo3CaCXwqMLU5TPemenQc bmNsdWRpbmcgSCZFLCBTcG UdrRFoJWA3IUnbksMhtwGa VT5psG0ntEoolY5pfLItfD C4urhuOUNuNLSpvIehKYSh ZP5huRfciT7sCbNsMyQwOG lrVY2aMHGjP8orqDKrDRQt VKPmU3vlAxYscD1tjCjjRH xjZjJcZnMyMFxwYXJccGFy XHBsYWluXGYxXGZzMjBcbG FuZzEwMzNcaGljaFxmMVxk HdFxKOShMTypC8xwHoRaJ3 FiOTJlCoIxgJGzV3dwHXql XYZ0AYBrHW3fdDXaXU79jS Mqd7ucIJbeuBmyxj5cT09k gRWgUByrsKshLICjp47xo8 AxUTRrphGxmg3iAOWdvfL7 eW3pSJShgRjkBPFfzDKvFS Pim0UrBBenbCVzjfWkIYaw TSYaUOFakXMwwcF1ogUhbg IefkZnBUCaxRnuRJMhr6Xa HPHxTEiqq2Srml7mcGYaOU WfunMSkUjgaWFyyN1eS2Qb WKVfHTEsvc9hGPOccV1vTO bef3XuziohPYJqRNJjLVRp ewMfem8bCMSiyKDLKV9CDL hslTFgn9YcbxKkQ5tWGOJ5 NUQwNjYwMjgxKSBleGNlcH LeXHGtik67OJNwpW0szXgq CNMfdK7xhE9qiUnqnR8kPn PqAqKvURisMQ0gNTTrQ9my uBLeWQNpKQIaR4liQgXsxZ 9jaFxmMVxjZjJcZnMyMFxw YXJ9fQ== Embedded Images (test code = [id number]) [facility] [id number] 19:23:05* Test Item Value Reference Range Interpretation Comme nts Case Report (test code = [id number]) Surgical Pathology ?Case: [id number] ? Authorizing Provider: ?Dominic Keita MD ? [...] HPylori ? Final Diagnosis (test code = [id number]) v4tleDDbHAZue7okWVAbzU FuZzEwMzNcZnRuYmpcdWMx JRnoesKkJPjdmRkzTNL5ME WkKP3pdKdkcEq9tKxoDQVw pnE6vEUrIIntr3mqZJA6m2 twipklRONrEQbjIr1orMZk tTvkBxJcMWRuEJh3rV02MW MyhB1jyNZoFKo2ZXXiiUFx akUqRcPaSVEamXXmjAL9SW XtBN1quduxPMmnUAclTFUt znL4LDRemJMmY5BwKDNaLD 9zetunFRH3FQmmDQUtIDX2 NmJkCKQqm2Liwiq5HbZjrS FyZFxwbGFpblxmczIwXHBh yqUMOeUQAD8MMTTPGBALU7 kUAVNSKC5FGQPXPowmyVIc JVPfBCUdEYQOZD2EJXHdC9 cWEiOrZP6HUNMrOKSrrTYn PZPanoWBHiOFHZ5CJP7BPN wgQklPUFNZOlxwYXIgICAg CLCrPTnAZ8KBSQOvVNKOD3 PHACdAADtgTa8gPMSAGP6U P3yPZ7ZGSQXICL1XMWkpFW LeYGDlPUQuBG3GGWewATBB KU8EJFJBXPHRFTgWCCIMCV REGGiGJITBQ5RKVBkFTZAr zojeGOPhNc5cG3FEICRVZI wgQklPUFNZOlxwYXIgICAg FVPeTQOYJ7SBGqUMAY7JB6 3NSPLMTKBNNC1MZPHAZUkA XA9JBQQZVXUYLWITM1AswZ FyICAgICAgLSBOTyBFVklE NS1HVXRWUfTYSWdUEOBoIF lTRUFTRVxwYXIgICAgICAt XY4XUWwtQRYUFQ1NCQNJSz dBTklTTVMgSURFTlRJRklF YKQGVVQCWT4JWg6PIVCJDz xwYXJccGFyfXtccnRmMVxz g2DbF0ShZbNuXUbkpzUqYD KtQuqllgsvVPEhCEF5qoNx ERXiWArbLDPbRTucTe1ylH LmqPfdVqHqESOyo9qiinQQ LQvxLqKrY162LPSwXJucc1 wgk5XrIODkvSKkm4L5TTNK udimxSc0k0zsWxNwIrA4bG JbUFbnW2gkqeSjqZXhJ5Np dVYjpHw0lVjvK16iv1X9Eo ggZ8ecAYCyRYTwS9XgRR9c AHClQex0LHQ2QYU8SAShXI FlL6InGV1xGZGdqPFbCJa7 q7egoNbkYEFpSXX3a4dcLG vordW3IE7mvx8sjPv7i6oa czEgRGVmYXVsdCBQYXJhZ3 RxbFxfQk7iqPi0jInfAlhd BTL5Wsf0VO3omc11gul6jX fhLEHnbjdmYkT0DIpzVAUl vokbLOl8SEyiCQFwhGS4AJ UzcEOwF1TwMWUcJN0fktq0 NIQ6YNheKSAcGkV8SFAhcH HbKEPzfKjxHYzmv316BNK8 BrJbQH6lL9Zft3J0sL7cgB VtXIIwoCBeUrZkFTAwut7f dDKkTLwca0QgNWP5xbS0aQ ZrbUXpSCTpNR31Wadbk4Uc VnjgDPA4HZGkxiGsg5Wqa7 uxCaAlmrUnC3ibW5KbGZZa UOMeULJySrTjisRuv0Gnq8 SzpCAsxPr1w4ztPSKjPFSe yWslq4wmFBF2OBWbW5H5pL Mak6itNSphKTKxlBC6xwR6 VMLiyKTuO0DruD9iXJZsZE 1zcdx1s6bfYNR2EBjpKKKd ZaU8zpY9AMEgvNWkUNOirM pfEZesh366TGW6ExAmSRYm k4DxR6ZbtOncO78snWpfM2 3kDARblJiaxK9yoZvfeO8k ZjBcZnMyNFxxbFxwbGFpbl xmMVxmczIwXGxhbmcxMDMz SChzB8sdPjIzGPJtjLaeKM kfg3KgQFCjKFVyIrqvwuUs XHBhciBJIGhhdmUgcGVyc2 9uYWxseSByZXZpZXdlZCBh wCtcl0XfN0hfWS6gA5IclJ GzodXoczXqNCvjYBAga3a7 iPKcmNwfb5IujPCaOS64mm UxMAWxHSQ1NDGsr4zdZC65 mvpbBcFvxV40twIhxbPcRG Shc7ceC8gmvZBke9Fkz9Xi gnNlIRzii5XqBY3xiUGlvj efhGS0ITEqoKNoqkGcrrW3 iLaxFLMlrE0unI2gzMblsJ 1qWsYfKoYzGMmjTJ1xVSGw R7smuINjLFYpWKIbG9adUi KglK7vqCbaTnmgxbZ3YCWk cn19 Clinical Information (test code = [id number]) Shivani Schuler is a 47 year old female with IDA1. Gastric polyp x 6 r/o adenoma2.Duodenal Bx, r/o Celiac disease 3. Gastric Bx r/o HPylori Gross Description (test code = [id number]) k3uofKVyJISmlZPPCRF8HE AdJA1ngVmsiWl3wKugBHSa cdQ6nSIuMMkko6scLQR6f2 mmhqBHCaotWWObEM6jYPvd IHMiQZ0mMqBjWBKpHwToHT BhcGVydzEyMjQwXHBhcGVy nPC5HKEwUH8hsnwxGDeaPZ lsNSTsjzQ1ADLutEXlS1Hm KQFoDH1xuchoEQW8WWHFXl adDq5inISsfUrfAkXwWrEs YXJzZXQwXGZuaWwgQXJpYW r3oR3WRihsFQY1CRAVLlyv SeojyEcgt9QvwRRqWGNfGS xcaWQgNTEwMDAgXFxkYiBP FsEjQoM7Uhg0YER3ZrA5WH p0HGPHAMJzXsxfMOC0LoB4 UQy0DQNqRK0lJAxkyXTtVL pdMrhcDYvnT255QLsiQVJd V6WkV8EyWRmpCqWnHFkdVH KyJNQqPNfiXHIlC3CICWOw UAK9RiWpPNLrRHa3EKbuQ7 XXMKJuLICaCiT4GKFzVmV6 JOn3GPCJLf7zRNgdLaGvAB s5BGS0GLj0HcVoTAQzKeMr GAFeCELpDEzdyZIpDK2stB stLZVqFQ7HDVEhOEmxZPSo LyXcJ5VXH5uJQO3zGEjeeE JjaFxmczIyXHBhciANClxw SMEhUB9BFDFiFHuuNTo7yu WcSEUuIcFiHIQqC31sk9ZE u3PwLC8IYOz8dhHvmqrtyB 0bNTJiahLmMYdVvTCgiL9b raUWABckAIPvL6FzlnKsGV zrYPMvzi8vmBfbLJtrPcGw bGVkIHdpdGggdGhlIHBhdG gimdUoU7M2cgNtQP0mHXPA NGVhmL2uDTMzTOGis9CnyK JocGqzI5VmvBJvSfUlt0a1 cED4PMKontShQMCtxVWjZZ Rlza1vHKyuNyKgD0T7TZCa LQDvq56vjER6mzKqInZhfT h2pUBnZTI0YI3noHzuloSk q0p9hV1tYLFsr5Q7VJZwi8 J9OGIloeJjtHPjuHSqAUJp QY3jseUaJO15PUDaLIenWV pjAPQ1KJZ9OFTmwSEhu7pj tbluRq5jXIwqYS1hUBdmKT 68SDSmCHyzIOCfR9VcZ0F2 CFxqWUTySDLnvNOumZ5fvb SyjrZmjJu3CUWkNRU1oOJt xDvjUMNqSblqoIF7UFPlCo LtoqWsb2PzuKf3uDOgTYed GNRqpK8pbN0kHMXbOTCvhb QYZvxsDIOfZUypg8DnQEic cGljWHNhMzAgDQpcZXBpY0 3xy3WDj2Web2toeYffq3Rx bIIzAX6naIBuWY6It4jqNB YrpIIbUFK6OMjfp1keGFgr ZIA8UGInXiLzEBMtOZ2SCc DtNJmyLKa7ZMbwCXi7MVz3 OM8JRaMtXHOkPkw7LfK9Tu EuSDn4RKirHL2JUZV9LHRg SMYuBOfuCPW8HQRkFLd3CT IgXFxzcyAzIFxcZmwgXFxu D92ydZDhQMhwVjAyERzhxO svXTEgLLY0AT7SAAEoSsXa W5IAL2sRHC6pYaqclsYjAX PtbnNVWmnkCMPpKJ3OPMNq MZxlCRg9vbPuZPNjMbYlIL AmN94au1MMs2RaEF1QRKx7 eySacouwkW9nVVPsiiFod6 IzMFxlcGljWHNiMzAgDQpT aSRrvC8ikiYGNUeyMIKdL3 UsckYjBNgnBYVsit0byCml IGxhYmVsbGVkIHdpdGggdG raZQLyxUmbutPsR3R1ciQd IV2xWMSCRQYhiQ0jNAWnRA UaUQXuFYBteG6gBRX6u3Qj btVqZCXHPKOjePseEP65jS BjZWxpYWMgZGlzZWFzZSBh svNxpgLig94jnpGgi5EjBF 1quHpyMDhAPYhbAzHqBY6i MLHxmyKdf4WiZA6wBUYutI WiSJJvchdivRGcIZx2gFFt TEDrJsUmwUype2GdRCRlBX iwTQ52bzOtEM7lFUvbPG9c PJwsRB4nCSFyBNFhBHHgFt UucHNqRfUpcJDvBaOpO91m OoLTfQGxs9AyB8niNT0zeU GkOnevgRMoCJDtwJold7Rl aBLpGVPtu1WcbZVaORsbGU 6cGMI2Uq9xjTElQJHzbvN6 e4AfUAvpMBDpEkbeUGUiJK toy0NfYTXfnKQIa3PpQK4V XHBhciANClxzYTMwXGVwaW MTv0ZwOLAUHsgveIzyHmOs rYNoVgB6SMMtuLXxBHS0FV 8pdSaqOGZlQSa3NWmfCSVo X3FuM4UiDMklKfQyOGucIX AoEMPxBByzUDJxD7HBLWYf PCQ8KjVjBQGhRKy7WPhzR5 DEMTWrALUgJtP5OSH4PgM8 UVq3JLCIHk6wPRodAzHyIV RxNsR0EBy8RuHzFAAjRaKa THAaDMHwFUlviQXuMC3qiX uhPXIaBZYbFNT1NDNftDRT e0UqXBQtNJkgXqOrURZUAW NTWI5TSgERYPPhKkMcfOQb DQ5YYNYgreVkYJnhgRduiG 2ykDSvM9apWqQuXaderRis TmVzdERvYzEgDQpcbHRycG FyXGxpbjBccmluMFxzYjMw TRAyzTYEg3SxXHHOBxRbCK NpbWVuIEMgaXMgcmVjZWl2 IIHjcP0iGh4coIEjzW4gsS IuEDiiHAIwq8d9sAU2fUNp mKF3qJEluAdhCeOeHP0mkS OrHSFXCY28vAAvmeOeZNCn iC3gOWBjWMRfSFV5frrmJX DHMVO2qFPge6O5YWjpEDP4 mN9wfScjQqIwL6H3AFHyLX Iqf97thBT9lgZcQwQuYDMk dw5olG5kLDabovRyvHibxj Ngd8B6EIHvj1H0REBzmeMt dPRrmNXrKVFlWgV9CFJjBh E9JSAjSAGjqNXfBVHcGJ7n VGhlIHNwZWNpbWVuIGlzIG SrpEPhjaDbIMDazf00T4lv EBLyfF8ad9eaLdRiRTBuAS PydZQrjAI1IZAmtF0raM30 reMxnqVELJ6kpMSxJT0JEC NiMFxlcGljWHNiMCANClxw VMUwARirg5YkUOtsvCkuTA WrAyPvXQwZlLunZABUB7df xLKkHXmlQGCPKJaYS0EOWG 0XWSWcvEKNMIO6LD3dGGbc CHGwJ4CtX3FplgJ2j0dnoR gbe6IltAJlBA3mqOEzLS9U XHBhcmQgDQp9 Disclaimer (test code = [id number]) c6umlIKiFSRvq3frNCCdyT FuZzEwMzNcZnRuYmpcdWMx HSepgrUmKZocz9YzD3JuYn AwMFxhbnNpXGRlZmxhbmcx STBcDLZ8vrJaAYMkBCosMX YnIAsjXe2szRMpaAywKlBp PGKep6amiaEOYZrxRfPrR3 06QCPlCCrtg4gdd1OhSZFr lGHdu1O3TWRBaoujoYz5kR wiT15rq4P5NbjfR0gnTRYx XWHjM3MbIR9gONYeEat7VA B6DXF4VIKyCKMnV0PbPN3k XNPbsRAaDYm2i3rvlFztTB WdEOY9q2ftCKnqotRzGJ6w iq7hyNi7y3tlmwLlDSFjZH BppXTKYPBsA9WlvGmtXg8b uEg5mBvnRcdwNPC4Iej8YN 2oww13fqy8xDpbPUBtxxtl MgC6YOejJEMpzqrlHHk3EG kxYSMydGF5KZFrsZQcH0Uz INPqLY5bkxt3XKB2TVniUR OfJxK8CBHayBXvWSQsmJzk MBxxw395GYC1FsZfUH0pT5 Apj4J7jQ1ttMOlVLPqcJBv VsCgHODidi6qoGTxAGdia1 UpKDB3mfF5gLPfoNKxVBLp IA73Zzumj3NfGdphj4LbH3 7uwLU3SFmzk1qyUG2cMpT1 huVeEXrbb6qaeR1tCyZ7LD mmWH7rSO6xBTBajE5slwrb XHBnYnJkcmhlYWRccGdicm IuVz3osVwpOZH6YNmxD9jo nP8wPiK0BGatL6zvfJ7vXS v3KGzraET2PSCefX7sTB6e poszb1kfWQffQQxuCICptx F4jxK1YVOegUThU0AoeS0g ITYtST7vqswxi1nrHJP4IR tcDQRkTYY5HoWtDHJac4Pf dro7QpIib7HuwOWbYGyaA1 7oc696PLSplbPfJ8wkoLEp dnqslGIbcdtkTCixhhN9KJ MjusVjo6YeHNPqSGF2FZzr BMzpuYXgQQUxcFmpo0uyW3 RscGFyXHBsYWluXGYxXGZz MjBcbGFuZzEwMzNcaGljaF lbUWxsUrGpWBClQWrzD9rz RkBiQ1OuNBNrEsJjlGAhI7 ggVGhpcyByZXBvcnQgbWF5 SYswR8j4TJExwiFavYn5wk IwUiTiVPVdMXE4BDifiHLh CJDbh5FzkcmpiLMgHg6srW SnXQDajK4aMVFgXAOzGFhz FU1qsKm1SQVIzYPjqCUdUs EYYWOmUM03jfHuNALGawic l2R6VRieFMFvg3KesJQwH9 vao6NwQKRyx99zUE2hk7C1 e0hvXEU3BX4tu9FyURCfpL XbzULpYFBqu7Ktorbbi0Rq EIXoqxHgj4JmGGKkpyPczY XsRZIsanCzvo0naqAsUOJq PWThH2ZqqrthyJmmcmCkCK Osdi7mnoLkOHJ6PTFLISSm EJAgw4PlgB7hxIVTYLP9mB Rafv1ijrGNgLTqNVBgpc25 HXFmWW5gC4ffCVOeDXNfah OgrRLez3CjUYOoiLE0sZZy PY2CToXZp76fHKBsRLKMcv SlZKGjdZywwRP6esZ4tT4o IChGREEpLlx+IFRoZSBGRE ToCM0mopHmq2DadfRnfTon AGEccAIxn6PylTKyc0LozK mmn7DkmLKrvHLpZX8lMQGn clxwYXIgVVRNQiBMYWJvcm O3e3FfNNDjEHBlFWS7mWit omc4UBCaxR8gRSXhO3sjts iaEKnaNQZjd0VjqL6irNFY xFNbl0HzsVUkrNCBwVUqMY 8zehZwUMbMJWeRCOB9pyCq XGIvv0XsAJvbK1wiP12geV yrpOm1aVE7CBA8oV0xVzd+ IFxwYXJccGFyIEFwcHJvcH JaKNSpoVieylCgT5WwzcJf wI8jsASfczPfGV6qEA2vS5 C0mGXzGNCbvtUkt0ioMEde dmUgYmVlbiByZXZpZXdlZC Guu5ReNTcrSXP7FVgzvuYq bmNsdWRpbmcgSCZFLCBTcG YshDIlHSC3IAtdpdEqdhFg ZR3fjS4vgCccfB5psQGwiT V6ovegGWUdJAPqmVwmIYAy BZ4vdBkfjI6wLmJePuOaJH tnNQ3oRGWfF0amgSEnPGPp RROeH6jpGzAzyK6atJvdMG xjZjJcZnMyMFxwYXJccGFy XHBsYWluXGYxXGZzMjBcbG FuZzEwMzNcaGljaFxmMVxk GfFsKFDlLUnvI8jzNnAwI1 SzVMVkEoJobCEzL1ziWVse HLZ3VXEsGV3crHQnHV97wL Jxf9fwXBjdmCjany6rO68f dSSsMFyuhCxsWTGbk69ml2 UrHFYrqtJxvp1cOSUhziJ3 cT5gOOPoiLpmNOVbgXQrAF Siv2QsGGhjyIFbwtYxDJfb DZDnGSOsmJDvttX4xcMsox QmubIfWFLgjXmrMWUdm2Qa JCGaPLhmm9Nodv8qzOFeMJ CvziYBsCdklJDkgY4dJ0Bw BFNyWAWpre7cDGPekM1dHX fkj2TdbfgvNFYiCLTsSHCm fsPqay6hHMArhRDOCX2MLT nnoCYjy3FcuuXuK1aQLFY3 NUQwNjYwMjgxKSBleGNlcH DfPEEdgk14IGEepZ8pkDax CLVivU9kcX3ioNdunK9yYl NjVfJoPAcmDK9fVKLiF0ek xEEsXOQfGVGhP7xpXxUiqP 9jaFxmMVxjZjJcZnMyMFxw YXJ9fQ== Embedded Images (test code = [id number]) [facility] [id number] 19:23:05* Test Item Value Reference Range Interpretation Comme nts Case Report (test code = [id number]) Surgical Pathology ?Case: [id number] ? Authorizing Provider: ?Dominic Keita MD ? [...] HPylori ? Final Diagnosis (test code = [id number]) u1txiGWiEBBza1tqZYKmbW FuZzEwMzNcZnRuYmpcdWMx SJyjtuJqUNbucVtuBBQ5IA KbZJ7wbVjyzGw7kBgjYGTe vrJ7qORkNXrgx0ooPJO5e1 wqhsicQCEaUUfpZt8fmTJy dPcmAsOhQETuOYo2yZ25XZ AnwH2vsYMyPBz2UWVeeDTs mwDiWeOiRDKlsHMtdQD4IQ DdND6gfgtnEYycNBgjEBTh kmR0EDWdvCLsF5BkCLLhRQ 1wcamuEJX3VOymDVUvZNW8 BwWxCCJuq0Otome2HxMnbE FyZFxwbGFpblxmczIwXHBh vsJTIwSWWB4GFBLDHVOVT4 eJSHOGCI8HWSAPQutdaEMl EZWgUQTtHHMVEX4OHKHlJ3 rLPmHyPL8UGAKqHYTfxIOk UUUmxjUNUjNZGI0JCM5QHQ wgQklPUFNZOlxwYXIgICAg WMIuUObXJ7VQVFEqQQNHI9 XJUUoYSRgqJs3sPCJUPQ9G X8bVR6CCPKYVTB7MNQgeHX KmIKYzFNWoGG2PJGrhDLEA TL8XDDODGNSBJDuPBQHGTC EIPRaJAXUPW4SLHZoYMWKf ltzcWGPyHl1iU0YDSDKDYI wgQklPUFNZOlxwYXIgICAg PGPjEFOKA8RYSdRJZS0VT9 6MDQXDZNZVTU0PVZDTAZyL EQ7ZSLHRAVGVCBWRZ4HtkE FyICAgICAgLSBOTyBFVklE RB1DQCAOXsYYXKoEGRVzYE lTRUFTRVxwYXIgICAgICAt BG9AHYsgWGNLYH3BBDPQHt dBTklTTVMgSURFTlRJRklF VAAAAKJQAT4NGe7YKFERUp xwYXJccGFyfXtccnRmMVxz z4TwW7RiWnNeGLhockFeYG QlZrjtjcnnNJXhWPY7gfZg OZXkKEjkMIPpJKsoMz2mbB VrdNimFrXePMMxa8pstkRJ IElvQzFyA178DRRkRZgef4 wqf0NwRBMxqNWes8X8RSDY xbnnpWi2m5lhVoQsApI0hV GnTFbvV7finxTakAKtJ7Io iSAyfGy8nWgtH19td8Z4Ml wnP5fnZRIkHYNtR9KdOJ3g KJGfPdk6YCR8EUF2SLVfHA JrW3QtDX8rWSFyeWNiTXh3 h9sexGmgEXYbSSN8n0geOX jbkfQ4AP5ujl0vkMf3f8ck czEgRGVmYXVsdCBQYXJhZ3 QylIexZy5mfRq1dCgzFafi KVR4Viq6BY1tzf88mqv6qN tyQOLvvwsoCwB3TMttGHLs yavhUHh7QZdtWWZsbBN4CY BsmZWiZ7GrIBRvZP0istz1 TDW2DYdvLXPdGcI3SBPrvB ZhSLWtoGeiXKvts509YOD3 PjPzQL0kI8Qss4K5nE7xbC IrTSZggZQjJvMgXAEtsg1r dGPuVBiuo5JjLAJ3vtY4gD DymGYpWDApVR10Izajv2Bz KwugLAL1QNOhpeHeb3Hmd6 dlBlVosvQlY3asD8AxAYAt VNAhABAqHhFlqrKcm0Ksk7 AnwLPdoQu9h4gsNYFpOTLr bXglw4auVXT3KYQsC7B4bL Rfq6iaOWuwJNBjhOM9xeX2 RMNtgSHbX2BhvP4qFDXdNZ 7nfzu8u1bsARO7EFydUQTj QbJ8pmK7LKDioFOoPQZwqN vnEHrpt246BFY7KuEmCHZo u1FrY2BpgIlyI88pkXzhL2 3eVKXzdZcheG3taVkhcG3r ZjBcZnMyNFxxbFxwbGFpbl xmMVxmczIwXGxhbmcxMDMz IVwkO4eiUaMhISKjqAhuST iea3QeTCYlEFUdUrspjrIt XHBhciBJIGhhdmUgcGVyc2 9uYWxseSByZXZpZXdlZCBh gQbrk2XqS5vpYS1aF9SvzG FmjaLrkgOyZRlhFGObv4q2 nLBykBoby2QjkNCjYL03xy BlJORpQIO3VQGin3leNB01 jfivVjYmtP18zaJeizHgCU Vrx4joQ2fllHBbu1Vme2La mnAbQUvdp2BgRS5gsLYovb zksNI5WZCojSFwdqQstzC9 nZboQPShoC9psS1qyDdzqL 4bNmXaZeQrBJhtRR9bBJJm J5knfFVcXDTuJRHxK8czGe GbcA8zaOpvZehnqtL5XWEq cn19 Clinical Information (test code = [id number]) Shivani Schuler is a 47 year old female with IDA1. Gastric polyp x 6 r/o adenoma2.Duodenal Bx, r/o Celiac disease 3. Gastric Bx r/o HPylori Gross Description (test code = [id number]) z7cypZMnRHEggICCYNJ4AO RuUF3quSukiLf5fWjiEQYy tpY2eUWoHPubk1iuRUU7x4 aifjIXQrstFAGhPM5bKHis CPHdUU2zBpIgUWFuXgBnEM BhcGVydzEyMjQwXHBhcGVy zBP8ACBeBG1rsejlIYziCQ roHGHhjmD2XNMobUHxF3Qc URCyCG0shanlPKO7IGIOTd nhRu5xhQKmkMxvRmBwGvGl YXJzZXQwXGZuaWwgQXJpYW y0jB5VGfevWAM0QGJGObek DmozdLcmz7PqqOHqPLPcAW xcaWQgNTEwMDAgXFxkYiBP BiVbTeC7Xdv1PBD4KyO5JW m9FVFOLBKgEtngASP9NtX0 DEt2HEWzDE2aZPthnFPpNG nwYpjpSKleY875FSmpAUCr H2MkG1PdYJtdWsMcDQvfSG WxHUOlOHuwETAdD2RWTCKr DRY0FjYqPGJnMQk7SXqxZ0 JCNBIeLSRqKyD2AMWvPcH0 CYx8ELHGCj3fZRbjSnBjMO i6DSP1VZb5MtQvFGSyQiUq KDAnMCRvXLqsrHNkGM5xxY phSASzZU3OHAXeRLcgNKRs VpYmE3NQI4qMIQ3pOPrgxT JjaFxmczIyXHBhciANClxw CXXoKZ5VXXJtHQzoQEl1zq WsFIImUsUtRAXzT26ar9PA j3NgKP1WZVr9nyZxgziaiG 3tIGAngjWmEMhIqTYkxM9b euHTTSexMXBaD8GezmDwKG fgFJNdbn7ovJraGJvjXfWw bGVkIHdpdGggdGhlIHBhdG gvnzFjF4O7mcZqEJ4xBUUY WLHnrI8qEXYnKCNdc8LarN TljWojS9FdrEYsUsVtz4m3 uOO4QPLrjoRqUAZqhNBlSF Osps9tGDfrMkBzZ5K2KIMh GPSeu27mgIB1omYmMeUonL q3jNWtWGD6HL3xxDlnsmBn y0t1eS1tERJzj1G9APRqt1 W9SNBhbcKebUSmbJThYPWz CI7cyfVwWJ70XRRcDMvlRT zaHCH6RCL0NNVqyHUoe5yj cgnlXl7xUEqcUN2cQPimYH 83ADTsCBpeSRFhZ2UlS9I7 MRreXDYrSVPlyTPpdF1yej VmiyDbbLp5HBFuTRW8bEQl xSsaVFRxZyesqZI7QPLgFr DigoUce8VutBt9sMEqOCwy THFcyU2tpP9kOOChGFMuwn QHTpwkSNAqTAtsa0QmEZgl cGljWHNhMzAgDQpcZXBpY0 3gr8FUf3Mxw6byfTzvy8Oa gGQbCO8ehTFcBO4Xv8tfSN SqpVXjOVQ2DSxck0yaPSel BPE1XLOrDmSfDEQpXQ3RSt UfYLtlHEh5WDggKVl5QBf9 DS5UFdSzEQHiAzv1XbE7Bn VqNMy1KQoqVU7TRMQ2GYTr XHZdEBfvUMY2MHIbKOo4ZL IgXFxzcyAzIFxcZmwgXFxu R22wqGToIWzlDqSjBKnfaK mkYYPyRYP1FS7AHSNmSjAu G3CWI2yXJY7xMuhehjWmOC DlrbWSXgglIWGjDW1LTSBy XAsqAEa2gaYvAYWpLlImWV HuB71gl5QVx0WxVN3KRWj1 pzAwluabcE2sJVVgblHha6 IzMFxlcGljWHNiMzAgDQpT uCJtlI0ntwHVGTunUNUiP5 KkfdBkQPyfULDmmj8ynFot IGxhYmVsbGVkIHdpdGggdG bcOYFhiBkpzyPiB4U8hgLt RD0oAZQLDBZugF8eMEOvQO JvNXZjRIBfjA6kNIU5j2Qd fxOoVCABHGBnkXgyXY19pI BjZWxpYWMgZGlzZWFzZSBh vwBxdcCmd63jwgEba6RgHL 2rwGnpMQlAUCmmRqYbVY8p MFMvvzMbv1MfWZ5lQFBxvP FiCCXdktuzqRRhZSi4sTEy SWMmHqQbgZcfm5MbNHZtOF vfIS92bjRoLI0kNXgsDC9c NTatUZ1iXWHkCLCdSONqIx ZqgTGrRwDnfQYsCgRfN24z UvYEcFHve4RvR2jqYC3ikI EwRckloTZcHISnbBruu0Uk jTAuBTVil3QqbCQnHLiwYJ 6bICT8Sv6yuHDiMQYhesT5 i3TqIHbbUNRqEsptOORfWT bsr0FpLTZukRMDv2ZtFJ3B XHBhciANClxzYTMwXGVwaW RPc0UwYOHFAvoevYcnKuHa rQGgFeR7SMVlgXSbFVI9UU 1iaHzdXNNfMIf1HTglSBPd N2SgT9JfBIedZbPsEVwnEH TaKMKqRCnwCJXsT5BHSWQa BCL2VsQmUFMaJVo3NAdvL7 NSMKRtNYWlPvL0KAI5EwG6 HRq4RKAINe6nUHgxNoNlVY ZlScR4QAu7UrUiGOIwWcXg DKZzARAhORpuuDFqGM5nvF ofAADlXISvHUP3ZDGjuFQK b7BvMYXrFJyuHrMjWUVRZQ YHUY7EEgXJXGMqXfDynRBl YL9CRTTbmtXgNJwifMrnqY 4lgYJqF8afHcJdJtyucFzt TmVzdERvYzEgDQpcbHRycG FyXGxpbjBccmluMFxzYjMw FPTmwAJMt7UaDVFGHqOwNW NpbWVuIEMgaXMgcmVjZWl2 XOHfcX1pSl9mzUZymA6rsE BbHAhsZUPfi6n5xZN3tVYs cWK9uIMolUdrMtZsLH7heX ZaKCAAQQ48cDMdufBzHQCc lO9tPJFtHISlINH6cozcCH XWKCC1kNOgc5E9DSafJRH2 fD2qcDnfHaVmC8I7BKEyZR Gbi87kcUC2vvEkJeStYLAj pk1jmC0cAKijhpGloTerib Fhy1J1ADIdh7S8GKYpphFj tWYyeVNpMKJaWcP6AGJkMr N6DYCkGVMepQDhXFDwIQ7x VGhlIHNwZWNpbWVuIGlzIG BwkUTfhiGmDDFchr35Y3az PQZydS1nx5ceSvKvLAUqDB IlyRMdeXU3VHXguX6orN15 mtWibfDPBH3joBVqFX4QMZ NiMFxlcGljWHNiMCANClxw DAGpSXsoy0WpMTilqDycDH HnOaIuIAxYcQddOEGGH5zt vTMbGGtnMICMLGpLD0IBAS 6VKPRezOWUPZH2SW8aZVtf NMSoQ4ZaC0ChcrS5w9vehW hnl0UibTDmZY5gaDBzWN1M XHBhcmQgDQp9 Disclaimer (test code = [id number]) j8jsgFGlLPRgd5osCWZwuE FuZzEwMzNcZnRuYmpcdWMx BLpsloBbSHcwn5QpX3ZjWd AwMFxhbnNpXGRlZmxhbmcx PIWmEPE1ouPwTCTmHYtlZB WnLGioWf3rcQUfnWijWiCx BHExq6mcmjZFSDchTrOvO1 46GZYsAYiyg0aet3NmJERu tAVwt4P1YSJQidtreQe8nV vhS12al5U5OrwiI9beSOOe WIVqP6MyLB5zXGZfNgt6LE T6POX5XROoUUKuA3OnLV7a MRKhtTGhGUy0t0rlqAxtVS WdELP5c8ofRKhmwpZiAE2x xx9xhTw4r7uyktBhBLQxMM DufUJFEEWuZ0KykPkyZn6n uKc4fNbxTocdJDV8Slg2OE 4hah21huv4vJyhBGOllzmj ArH5VRqmUYPrjissVTb7UJ mcDSFxtSJ9CYDmsMThB6Nn DFPhMY9zsbf1DQV7YPnwDH QtPrO4MCOmcHFdGECwuHyx JGstz251NVP0SmGuID6cS2 Gfg7S2hH7mtPSjJJFpdWJg OcKyQIQauv4obESiOHktu3 ZnGJL7viZ5wKYzsCVxCWGv AQ66Reixf0QpObfjq6PlM5 0tcYY3TFfwe4fhSJ0hWbL0 bgInPCvim9imaF6tZbK8TV mdHT0hYP4bLOZhqA1nvuzr XHBnYnJkcmhlYWRccGdicm NmAf1xrOzgCET0DLjhG3lo gM6vSuE1IUdkL6hytX0nRH l0EIgvdVJ6TIPazZ1rGR0v uooui5wqXLdlDKwnMBIrqr V5wlP7TXBrsILvK2LrpI8o BNCkHJ8jvelyv7buMEQ8KW hgQJWcEFQ7OjTpBMUgd5Nw bed0ZkPap3WbuAWkMFkkT3 1cs856RQOdxdEiG2hgtVCn pjuncKMsznecUYkkqrU0YO CcsrNqe4CwSRYfONV0BSsi AXycuXIlLLPicIesx1xeR5 RscGFyXHBsYWluXGYxXGZz MjBcbGFuZzEwMzNcaGljaF pjTCdtGwYvWISuOHsiK9om GsGbE5JrONTjNlXqbZCgR9 ggVGhpcyByZXBvcnQgbWF5 JGkjC2e3JLApwmNydNr7ln PhXnFbJLVfKAJ1MJesdOMj FVWty3LhozxpsRLvQx8bnS WzMEFbfK9hPFAfWNUkMWxl QF8toUa7PEKXtKGhlNGfEb BURTBgAT11hrFkICSUqyme k9B1SPxjXAGno3WepKItJ8 wrn3CnOOOxb97eMD3ti0H4 m2kiKOG6BK4oh7LrPCPneJ TfqPNfFHQjv7Kkvvzpu5Fk AZIdjkHfa6FnZGGsqtFzsR UoWVSoujZyas4fifOjJOGv BMRxR3DqrqiuqUzfjvTrWE Zudb1evoWxBVB8ZGLNOHBb AGOeb6FfxA3zsEWHHLX8kK Cxiz0tpiXBlCMdTZPuvf11 UOUjDY6cL1ecDVUtIWSvqq SryRHjq6YcGIJiuTJ8kEEx UW3RVnYNl90jGAMaOGIAdu CiJWVreAtemCR7bwC6hZ6n IChGREEpLlx+IFRoZSBGRE SdVL1ldaHqm1FctwUomWfd QKXfrJOnj7LylXQpc1XfnX eql0ErzEZlrDEcGY7mLNPd clxwYXIgVVRNQiBMYWJvcm J4j7CyDEStPKBrNFG3sCvm fia8YGPwfB1sFAGvC6cdkv yaMAeoSRRfo1VrsW6xiCIO wEMtp9PfcHVbqKPDkAOuUB 1rjhHjTUhXJLfGMJP5fqTv LWJgi6OwIKmsM8ivQ63zwP khhGg9eNA0HVK7iW9gEns+ IFxwYXJccGFyIEFwcHJvcH NxBWRccNyvgiHjA5WrdsGn eJ5boKEhrnKsUQ0zXF7lF3 L6yKEsHBUbwhFuc5knVNub dmUgYmVlbiByZXZpZXdlZC Rmd9BkSZymYHU4MUjcfpTv bmNsdWRpbmcgSCZFLCBTcG WipUDiVTK8JHhmmoVpfhAt ZJ0ttM3jyUvtzY4bdLCevV T2imvaHMWeTUXctHomMXKm VZ7xyUkmnQ4wOfQdPeVuQI tgLY7pFPOlO8bszRWxMNOo TMCrI8qsXoDlcE1qyAmrMU xjZjJcZnMyMFxwYXJccGFy XHBsYWluXGYxXGZzMjBcbG FuZzEwMzNcaGljaFxmMVxk YwWpTAUmXVhuZ2rlLlXmA0 EuZERvSnSboAOqR4jpNAak OON9ESNrMF6evUBiWS38zU Rto1tvWXbvaOkavv3fW09h gZCcDJopjPvhSVOci76qf3 NiRJIafoHefa8jOBUohnR5 eJ3dXVIvwEkdSWEpcNZaRB Fvw1QgDSgbsEExusWvXMka VIKrYHTntATqtlE6qkQjog SopbCsUZZatKdbTSYcs0Xb GNLaOJicv5Ycgz9jzFQqJR NdadSJgWhqtLThhR3vW7Pt WFNfCNAmkx3vFLTwyR5oPZ rpu8HegvdmXSUfZXPcAYAt ciLzsm2qWQLjkNZLVL7SPD klcBZzb2DnfvIoI2iKMVW2 NUQwNjYwMjgxKSBleGNlcH DuLBLjlq37STIavT8qhKtb DDOqiE6uxP0dkHbiiS9pXa MgCjYsRTrjBY5jODJqG2kd mZHaHUMfGPYpU8uwOeBpoI 9jaFxmMVxjZjJcZnMyMFxw YXJ9fQ== Embedded Images (test code = [id number]) [facility] [id number] 19:23:05* Test Item Value Reference Range Interpretation Comme nts Case Report (test code = [id number]) Surgical Pathology ?Case: [id number] ? Authorizing Provider: ?Dominic Keita MD ? [...] HPylori ? Final Diagnosis (test code = [id number]) [id number] FuZzEwMzNcZnRuYmpcdWMx EFgwjeVqZJlalXzcFRG4BG XjBX1vaWnmqHe7rIsjFLYo zkK3cXXySJibg0klXDV4o3 pzpfyxHTRqGXpjXa4kjDHr rMyuHjWlSWVwAXt5qF00AV GbqZ2pxQHbWEf6IZWsyQJw rbKxNiHxLLAovJKugLX2BE LmSD3tzkrkSJjnKQrnLQHm mrA4VFJguYUcR0ZtQRCcDV 2rkaadIIT7SDzqQJNeWKP0 WnWlGZYjw8Welna0CoJejG FyZFxwbGFpblxmczIwXHBh ddZBGxXATE4DHUHWPRPQD5 mCCLGEVB6XPISTXfenfDZn CWGlQMMtCSMHKA1FPWChO0 eMCsAtBO4HSLEoUPQzjFPi SXVrulHCDfLVBH2NDH4RMQ wgQklPUFNZOlxwYXIgICAg BADdJEwAH3XCTZZiKVQYD6 AWZAbLZMhfOo1qTKNPTI6P Q5qVY5MHINZTAW6WRAnvQZ ViJYAdZZDxVX0HXWcnVFMW ML3XQKXKIBFXACvTYTSFCN QNLZvAKDVAV5VLONzVFKOy jyroTVUoPv5fP0KAEXEMSN wgQklPUFNZOlxwYXIgICAg TRRhOFUQV8TLVqETBA6TJ2 4IJUZLRODHKB5NELUAKOyP NJ7QKJTPCXRYIWAMA5GmiZ FyICAgICAgLSBOTyBFVklE IO0TWPCDFvLIOEsTEZWhWY lTRUFTRVxwYXIgICAgICAt IB9KHGbqAEAMFE3APODIAw dBTklTTVMgSURFTlRJRklF KDPHFTPDGS3ETq5VPQWLVx xwYXJccGFyfXtccnRmMVxz n7NvC2PbTuKoSSyvrpGxPT MsNbkgtnlxWCNqXDJ5msJz GNFdEXqjXNWbIKecTg6wvW DrpIzbUwWsLIIgn6bbhbIS ZJcsVrAnU331NJDjITpjh7 xuy4GsPEZurBAxq5I6QHZZ xlqroSk9e6cpNyZoGwO2wF RjDUlrJ2zuyzLzkMCvD1Hv rKEmeFs1iJbjY06xb0I9Lc jdV6oiKJBiFZAgU9NiTC2o VEKiIhr3JOC9JSI4VWKbKL GgJ8RuBS9qDZDjwWYeLHb0 o5wqnFfiOVXfQFH9h6apPT eogiG6DK7jbp0tqPe9e2dw czEgRGVmYXVsdCBQYXJhZ3 IpmRgsPx9pxXl9kKcxQaaa OCT1Biz7WS6zrf76lny5gY puDNDpsivdFbN7BDdmIVCq uidcICt0ELweMXBgjLL8HI HgaPAiV1ZyWLKuHF5nayp9 FHZ7MIzoLYKiKiD8OWNdxM HeWMDbzKuwMSyig698JCS3 WcIqXT6hW0Kuo0R4cN9kpY TcFFSjeLKbNrHcVVKqcq7k cCKdMXipq6DgTXY6fiW2vC CkiTZaINMxQK91Zaknb6Dt RglyHOJ1AHYvgwBnw0Yhr3 suYlDiurImO1faC5AaLWNi SQHzKRXvZnQmxqHmv5Ikc4 HwsLJnfQm1a7hzCCEgHDCw tSlkl8jxXOS5AYCiW5C4qU Uxk9ieQNcaKQTuaFX1pxJ2 BVFckMUaU4SobQ0xQVLvST 0ajtr8g1gcZHD3EUbqSFHt JsW3loK7ACGswPPmVIVzuC kyGVauf372EXF1JcIlYRMi t0UfR4UcjEjdL05wdNwoQ8 6lGUYyjDpahG4mvPdazO8l ZjBcZnMyNFxxbFxwbGFpbl xmMVxmczIwXGxhbmcxMDMz UYymZ3mjGxSvGRXczCfyPF asm0ZlFKSoBZYyBpfopjOk XHBhciBJIGhhdmUgcGVyc2 9uYWxseSByZXZpZXdlZCBh wJhhf8TmJ2ctIR2cI7JjyT SjraPnnmEwTSzvHLWcn0l1 tWQbbYubc5GnbZAvVZ69gt QgDZNwXMP2VJVkp9fiWM55 unwkTfGwyA32hmMttcXhWV Tmd3oyC2eqeVIzl4Ner0Yv xsBnVPrnm1PuSO6otUZejx fjaFV3AZQehYAmsfFdryK3 zFsvVMVcmL6raY0adMugfX 5bMfDsZxGdIThdHG9yECHo O8ceeUNmBUMyXNYqI6chBa IybQ7vaFdrEihdjsV4BLZl cn19 Clinical Information (test code = [id number]) Shivani Schuler is a 47 year old female with IDA1. Gastric polyp x 6 r/o adenoma2.Duodenal Bx, r/o Celiac disease 3. Gastric Bx r/o HPylori Gross Description (test code = [id number]) b2srbXPwKLAodLOZPRN7DH JbUN4lxIuuhZc0iUstGNGg okH8kXLsYNbvm4mwTGT1f4 kcmsQIJqsfPRQtCM4gMLwi RGPnYQ2eXwSvSEBbXzAeFT BhcGVydzEyMjQwXHBhcGVy oMK6RNUmHD5gphviFVjhVT zrKBKkivQ8CCHmaCAiM1Oy IAHbAV7ggzwwXVT2HNWUHe rcOk7zfDZbkOtnDqFyUfOs YXJzZXQwXGZuaWwgQXJpYW l2eB3LRxxfDPF9JUMMIjfo GibnaEbgw9MddGQqNYVaRH xcaWQgNTEwMDAgXFxkYiBP FlEoXjF5Yhz2KTA4JlO8RL b1YJXVFKJvKwpcNSD8SrT3 GNs2ERGjWW4pZRewlCAlQD ojLyxbPHotY876YStiCVUr C0JyC5TxNJmcGxSbJAhrSD YpVZMoWZskZYFlN5CGJYHs AJN3HvIgALSrZKe8FRxyQ9 TJYSRgVWPzEtA3STVkGcT5 PKv9IHQWWb8mJOdlHtTlID f1DFL9TXe1CfRqZNSvQhBx CZByTIWpGWvqeYExVW0tvL rpIABqLQ7FYHOsQSgtWMBh DsKgP4PFU4cLLX7oIPbyyF JjaFxmczIyXHBhciANClxw UXTiYG2SSUGnHRfdULb6ov UvUDLzWiHuEPJoJ95cj9VK r5GuFJ9IRLt6vsWhwyvdjO 5oNBYzuxFlNSeUjKVpnO1n wcSCLRcwXADlO0ExsnXbOR ecSFZdvi5jpIctJYwyJeYb bGVkIHdpdGggdGhlIHBhdG fajaPtR4P3xrByZA0fDZHL GCLxpP4fOXErQNJox4EreD VokRkmK9FovROpJaWuv5v5 mKJ0MEKpnmRzNQFyaNHaOB Uxnq0iKFnoJkPuM2K0DEZk ELEok85lvRU8axQuUmYwjO g5xGTnNCF7OV3gpWcqyqBt b2j5qO3rAMBdo8Z3AUKcw6 U9THFpoiUjbIRvlPMcGASj HY2ypxWlVW68HMQmMFocVI aqOUI1RSM9BIFliSTdi6vh nzdqUg9iCGgcBW4aILavRV 44FJOoSGccNLFvR5KhJ7P2 SUbyUFBbJWCoiBCiuZ8roi IaolZpwKe2TKBnGAZ4zYNa fFspQVQnPqchvBD8DFTgXf NwspEbi6XwvCr6hUPiGUzo CJTpyK4ekE5bKHJhJXNdql RLRvxnIEFgDNnux1VzOPgi cGljWHNhMzAgDQpcZXBpY0 1jn4LQv6Kus4qfeIfvg8Mh xPLfJZ0weHMlUO3Xt4hhVG BpdPBiHJY9LDmdp2pzAXpp JFK7KXXrDmLlRMLyXO6GPs KrWFnfQDy5ZClcYMv9JMd8 TV5FDsZsXREuBhe7VsD4Na GpXMw0SBggQJ2RHSO6XHTk PZOrPXyfVAN5RCCbQKe1IM IgXFxzcyAzIFxcZmwgXFxu E05syGQsCLcnRbBxEBxhcU ouFFXoCNP5FK8TJWYuEjAm O6LOQ6gKOT2jBcclpnEvCW KqwbGXWakvKRSxEF0LXULi VCsgNTq8mhInRCZvHzMkKR BuR65xn0PBe0LpUH9WAHs2 gkVnhsmrsG0xZFPbmmCts6 IzMFxlcGljWHNiMzAgDQpT oOPccB3gaxHBFYouSBCyI9 LeddVbBTkkMQSdta2hdTwb IGxhYmVsbGVkIHdpdGggdG jwJIEkwQzcjpWpY1J0rpVc PM2qMFGXHQIyyF3bZUCiFG NaBTGkPLAxyP6kQIA7e5Hq xkNfXMCJFPDwmPorDF71mI BjZWxpYWMgZGlzZWFzZSBh jaAhudQtc32hulYir7NkRN 8vnWsjIZkMQKlsLsWgPF7x WYXszcIeo9GxMY8zGHOzwQ PwKSCrerasuUTaPCy6cDLy BEOyUsGqdFere7MjDMDxTK oiAJ73dtTyJJ6lQMkzWV2d LTomRR0bWJVkOGTwZWXeHm CinSYvIuRgyKPuUpPkL52s FxRSaFRzv5FpA0jpZU3eoN SeYbhrxPZeQELjcLfzj0Qs nAUwHLZsy0PwiSEuPFbqJA 1bVUN2Os8yqBKdPKLtduJ5 x3NdJZtdKIGpSqkzTKLnXT oxr1DtYZZgaVOKw1AzHC7S XHBhciANClxzYTMwXGVwaW TFi2ReBMAHSyvmlZniSnHf oUDcHgU4YADahGUpMFO0QA 4qwEogDJNlGNm2PBtiOKCx L0AeC6LfFNthYiBcZRgzOO OaHFBcOYqsLROkF1TPZIEe QIN9ZkEcCSVgLXz7ZGyhV9 XDDBFxXFFhXjE9DLD0PbC4 WJx3CEKKNs6sDSbyMdPkYG MaMeG0LVc7RzXeQHDiPwSc GRRlMYAgFIjgtVEmQV5dxH buMZYsLQJiIFH9IJUfoHPL m8DtDQFaYPggOkJvHYNDBI BETT1XOwCOGUUjFkIoiMBi CI8TTDEmucPuWRjqcXmbmX 0irJGqL1cnZaWqYycerLfs TmVzdERvYzEgDQpcbHRycG FyXGxpbjBccmluMFxzYjMw WQBinTWOh4LaMCRXJyAxEU NpbWVuIEMgaXMgcmVjZWl2 UUQgiR0mAc1dyHTymJ0xlJ ZzZNxuUPJhx3p5wKX3dYRp vUA2dAUzlMvxBdIvEO3vzQ HfGVJVUC98wSFdebKkYTCo rJ7aPNJsXXWyQUK2pyejYJ TNTZL3oAQfk6N9RNvmOFS4 xD8dfYaqMfYuL6N7ZKJfZL Zva80rbCR1ehWgCgHgOBNw sh8jdR6nRUccdhUvvHeujy Mdm8A8EUBye6I1DNTuuoQb jNEddYLnHOKpBiM6OGBbLi R0VSJwMHNsrUKbAZEkJR5o VGhlIHNwZWNpbWVuIGlzIG WloQYgrnBzPMFjpc15Y5pf CPQlxV1lx3igHpIeYECbIK TuxDSwwAP2QVSrpB2inE65 phMrcaSXSQ2qgKJrAF1RQM NiMFxlcGljWHNiMCANClxw UYAeVNnvz1UrSLihbZieUT XeJgEcFNdEaUzjWIPXF8rg wFHuOMagGTBOXHdAH7ARQV 3VWVUroRPGWVA7GS6vDYwe JMKqX0XcE2ZpytH7e4cfkR hjn9MktVCxYW2riFRyRX0O XHBhcmQgDQp9 Disclaimer (test code = [id number]) z4hneKWsDQEsy9vuEVRdaM FuZzEwMzNcZnRuYmpcdWMx EOkygwLdMXurm2ZnE6ArLn AwMFxhbnNpXGRlZmxhbmcx CBPoAFZ5ozZxOLKuMRrfNS UlZTubEy4poSTqxDpsLdKn JPNog0ctsnYRVVerYmHiM2 36RGZxLYrbd0gbv9LhCBPd kVMro2Z0HBCYcezkgAh5fR wbX20wp3C3HzalO6ccXLCm JMYqC0AkFN5dNELbJhr4OM M0MMZ2OIRbYIJvD7RqVJ1d CNWbpYDeGCa7z7upbBthYJ TqOCK6e1keHAfkrvJfIL2j bv1xnVy0l9kzraThQHLnDD HuoLNVISZbX1VzgUbqLz6q lIg2cYkaHoaxWIV5Tqs2QI 2eks85jgx0sIkoKWJsabby SkX2NAhkJJUyarzhYBp2TD rpYHSwhAZ7MDTacSUqO7Qi FYVnVV8ftvs6HME2HIzuNX WiLxU7RPVodRGwZJZjkAfs EJfmg013OZR8DhMlTL4rI4 Rlv6H0dA2cwRRcURHwfSEt XxAfLUEzam5ouNYyIAkno1 FoWNY7sbI4dNPhjTSwEVTa UP44Bqmob7YaNensj2TpO7 0vtQG9XXujn0pwHY7eHdJ6 dtQlDOwnz2vcwI8fMxI1UM qdUS2sDO4vTJNmwR1bttng XHBnYnJkcmhlYWRccGdicm NzXz2lsSxrPNZ6LHmmG9nv fR8pWtD2OGpdO7yuzQ4cKV p1PVrjiAQ0RGUljY4kDX2g geezx8kdQVvgBKepESAvoy I9frI0AZIwaQTaE9YieT9u NDLoAA7dtaegn3cnMXJ6AT muVXWwHRB6AdTnSCSxe3Lz eez8KxTdj5ZnwFHbVAwgR7 6vc578EZJgjaJmA1yidEQc mqbbaTJnjvxoXNmwpyN8MA JfsdVcj5DmLPKkXKX6DVph XEmjcTJtQBKozBnaf1tnA5 RscGFyXHBsYWluXGYxXGZz MjBcbGFuZzEwMzNcaGljaF ibOIfkBjQlTTNtRXapG2ds KkMdF7KuSXEtBkLxwXKoO9 ggVGhpcyByZXBvcnQgbWF5 UYzfR1o6JGGwulPreVr6kv VhUdUxEAViMCE5SVwrwNMy MFChc3WshfcghCMtQq7cvS XdBTYtmM1vJLZsCEQdIDxm TX0onUy1TONEmOCyoMVaZk CWHVMbWQ77qlTrUGRRdrxx h4S5FMvvHQOhh3CbuBXoG8 hka5DjWVVtg33zBZ1yi4G5 r2qzGMB4SQ8qu6GhECNiyJ LtdKRiPLRwu9Qsmcmtx6Gt HTUilqRcq9TtMTHufmCwzK QqFDDvsnOhsq4ufoOlRJBx OGMhN8WsllpdpAhbymRnUF Fjey2jbzOaWMI8XAUIDTUt WNYcc3HkoF0kuZYHUGN8hF Lstw7kylNAoZJdIKGfqk94 TXSyFI5eW6jvEUEvNQVoef PtgPOsy3XsRJUgxQG8nCFk UU9WQvPLh22qWIRqKPEWpz FcXQZeyUavmUD7liI8aW2d IChGREEpLlx+IFRoZSBGRE QiRB7ewbUbl1TiwdDjwGcf ALVvbIMzb6PwgRFyf6RgmK pov5TidRDmgNAqWW0uCOUw clxwYXIgVVRNQiBMYWJvcm U5h3BnSDNoNJIkPXP6uBry igf2WMPfbO2wWPXqA4zuga umPVknEEOoa5YpvZ6mlTJJ xIEco3FoxEUwoCXHhYObQB 3hkhKpWXvSSJjMVMS7gpHs EWEeb7PwVJtqO6jfV27wcZ yjfGg6uWT4ZVR3dY7gKxx+ IFxwYXJccGFyIEFwcHJvcH LmNCMgoCrmumAoE7GjamEw fW9hoMQiqrTsVF5oZJ8wQ7 O0sDLtAQJivdGsv6dmOMdr dmUgYmVlbiByZXZpZXdlZC Vtt1GgBPzyMMK6ZFucbyBg bmNsdWRpbmcgSCZFLCBTcG FwgYPvQGR2ECvnchWgqoSc DA8ktR0viEwbpN2xcXOvvB M6icnxPEFaEIVydYakNSNi HS5idQygeQ1cZiJiCiVaOX osNU4tEHWbD3wfcBEgEZFr IZCbD2dxOiRmpK7cnHdrLH xjZjJcZnMyMFxwYXJccGFy XHBsYWluXGYxXGZzMjBcbG FuZzEwMzNcaGljaFxmMVxk OaUtLAIqYNjlE9evRjPzG1 WiAJMtIrTkvOYxB1hmCLeh SKZ8AFBuQL9joTTeBG07kN Byh1zaHZcnaSxkuz4qF95t cKGeDRjsnNykMHRko31zc0 ImLMHncxQurd6uJXZxokB8 mO6oMFIczEybQDJggHIjDI Aft5JsINjlfEBqxeWuCEfh OTHcLORohNUuvzN0lyFome HiytHxUKXglCpiMNFoy9Bo FJDgDJohh7Gied9zwNDcLO IkolJLzLdciDUujP4yZ4Sx MGGbWLZewx6eBMXyzA1nLC cuw2AgzkssAFSbOYSbYHSn hbCxri2hXOBeePKREF2EWE koeJKnc7OtkiWuV8cJHTL9 NUQwNjYwMjgxKSBleGNlcH VtZJJmcm61WBLpvE5wqLoe RXZlxW3joT1skLilyG9uEd GgKgJtXJmqFS7yPVRnF3ia uYWsLEDnBTDbO5ooVkCcwB 9jaFxmMVxjZjJcZnMyMFxw YXJ9fQ== Embedded Images (test code = 3410556015) [facility]. METABOLIC PANEL ([id number])2022-11-03 17:25:32* Test Item Value Reference Range Interpretation Comme nts NA (test code = 9731176922) 139 mmol/L 135-145 K (test code = 7588494374) 4.2 mmol/L 3.5-5.0 CL (test code = 3446929182) 105 mmol/L 98-108 CO2 TOTAL (test code = 2253613363) 26 mmol/L 23-31 AGAP (test code = 0304238732) 8 2-16 BUN (test code = 7281725020) 9 mg/dL 7-23 GLUCOSE (test code = 0292851120) 93 mg/dL 70-110 CREATININE (test code = 2114135604) 0.60 mg/dL 0.50-1.04 TOTAL BILI (test code = 9478876278) 0.2 mg/dL 0.1-1.1 CALCIUM (test code = 1499067839) 9.2 mg/dL 8.6-10.6 T PROTEIN (test code = 8313345320) 7.0 g/dL 6.3-8.2 ALBUMIN (test code = 0490168011) 4.2 g/dL 3.5-5.0 ALK PHOS (test code = 0785364611) 118 U/L 34-122 ALTv (test code = 1742-6) 34 U/L 5-35 AST(SGOT) (test code = 0788543041) 34 U/L 13-40 eGFR (test code = 7983796706) 108.1 mL/min/1.73m2 ZAINAB (test code = ZAINAB) [...] or urine or abnormalities in imaging tests). [facility] ([id number])2022-11-03 17:25:32* Test Item Value Reference Range Interpretation Comme nts NA (test code = 0389278981) 139 mmol/L 135-145 K (test code = 5569474255) 4.2 mmol/L 3.5-5.0 CL (test code = 0500231240) 105 mmol/L 98-108 CO2 TOTAL (test code = 0249050901) 26 mmol/L 23-31 AGAP (test code = 6443689964) 8 2-16 BUN (test code = 1664894697) 9 mg/dL 7-23 GLUCOSE (test code = 5271153892) 93 mg/dL 70-110 CREATININE (test code = 5432952576) 0.60 mg/dL 0.50-1.04 TOTAL BILI (test code = 8305686050) 0.2 mg/dL 0.1-1.1 CALCIUM (test code = 7601692250) 9.2 mg/dL 8.6-10.6 T PROTEIN (test code = 9206123183) 7.0 g/dL 6.3-8.2 ALBUMIN (test code = 1428363597) 4.2 g/dL 3.5-5.0 ALK PHOS (test code = 6001974816) 118 U/L 34-122 ALTv (test code = 1742-6) 34 U/L 5-35 AST(SGOT) (test code = 7401571452) 34 U/L 13-40 eGFR (test code = 8673688029) 108.1 mL/min/1.73m2 ZAINAB (test code = ZAINAB) [...] urine or abnormalities in imaging tests). [facility]. METABOLIC PANEL ([id number])2022-11-03 17:25:32* Test Item Value Reference Range Interpretation Comme nts NA (test code = 9132032445) 139 mmol/L 135-145 K (test code = 3604880696) 4.2 mmol/L 3.5-5.0 CL (test code = 1149014115) 105 mmol/L 98-108 CO2 TOTAL (test code = 7176506495) 26 mmol/L 23-31 AGAP (test code = 3957898251) 8 2-16 BUN (test code = 9489592597) 9 mg/dL 7-23 GLUCOSE (test code = 5056808915) 93 mg/dL 70-110 CREATININE (test code = 6352393180) 0.60 mg/dL 0.50-1.04 TOTAL BILI (test code = 0854580381) 0.2 mg/dL 0.1-1.1 CALCIUM (test code = 3521703409) 9.2 mg/dL 8.6-10.6 T PROTEIN (test code = 0234793799) 7.0 g/dL 6.3-8.2 ALBUMIN (test code = 6642590995) 4.2 g/dL 3.5-5.0 ALK PHOS (test code = 1962496299) 118 U/L 34-122 ALTv (test code = 1742-6) 34 U/L 5-35 AST(SGOT) (test code = 1533676160) 34 U/L 13-40 eGFR (test code = 2331033372) 108.1 mL/min/1.73m2 ZAINAB (test code = ZAINAB) [...] urine or abnormalities in imaging tests). [facility]. METABOLIC PANEL ([id number])2022-11-03 17:25:32* Test Item Value Reference Range Interpretation Comme nts NA (test code = 1262142193) 139 mmol/L 135-145 K (test code = 8838999780) 4.2 mmol/L 3.5-5.0 CL (test code = 7913381668) 105 mmol/L 98-108 CO2 TOTAL (test code = 3312167225) 26 mmol/L 23-31 AGAP (test code = 2362748687) 8 2-16 BUN (test code = 4348476761) 9 mg/dL 7-23 GLUCOSE (test code = 0187852230) 93 mg/dL 70-110 CREATININE (test code = 2192051692) 0.60 mg/dL 0.50-1.04 TOTAL BILI (test code = 5225792127) 0.2 mg/dL 0.1-1.1 CALCIUM (test code = 1100334739) 9.2 mg/dL 8.6-10.6 T PROTEIN (test code = 3094699923) 7.0 g/dL 6.3-8.2 ALBUMIN (test code = 9130723356) 4.2 g/dL 3.5-5.0 ALK PHOS (test code = 8571914405) 118 U/L 34-122 ALTv (test code = 1742-6) 34 U/L 5-35 AST(SGOT) (test code = 8113475517) 34 U/L 13-40 eGFR (test code = 5326412808) 108.1 mL/min/1.73m2 ZAINAB (test code = ZAINAB) [...] urine or abnormalities in imaging tests). [facility]. METABOLIC PANEL ([id number])2022-11-03 17:25:32* Test Item Value Reference Range Interpretation Comme nts NA (test code = 1839321628) 139 mmol/L 135-145 K (test code = 8501603893) 4.2 mmol/L 3.5-5.0 CL (test code = 9060686962) 105 mmol/L 98-108 CO2 TOTAL (test code = 7970920492) 26 mmol/L 23-31 AGAP (test code = 5385546952) 8 2-16 BUN (test code = 6542187487) 9 mg/dL 7-23 GLUCOSE (test code = 4855093787) 93 mg/dL 70-110 CREATININE (test code = 6564744850) 0.60 mg/dL 0.50-1.04 TOTAL BILI (test code = 6950041096) 0.2 mg/dL 0.1-1.1 CALCIUM (test code = 9939744360) 9.2 mg/dL 8.6-10.6 T PROTEIN (test code = 8080524945) 7.0 g/dL 6.3-8.2 ALBUMIN (test code = 3294517794) 4.2 g/dL 3.5-5.0 ALK PHOS (test code = 3437579325) 118 U/L 34-122 ALTv (test code = 1742-6) 34 U/L 5-35 AST(SGOT) (test code = 3835606190) 34 U/L 13-40 eGFR (test code = 6546985945) 108.1 mL/min/1.73m2 ZAINAB (test code = ZAINAB) [...] urine or abnormalities in imaging tests). [facility] METABOLIC PANEL ([id number])2022-11-03 17:25:32* Test Item Value Reference Range Interpretation Comme nts NA (test code = 9352572299) 139 mmol/L 135-145 K (test code = 7262174585) 4.2 mmol/L 3.5-5.0 CL (test code = 9883314459) 105 mmol/L 98-108 CO2 TOTAL (test code = 9450885130) 26 mmol/L 23-31 AGAP (test code = 8045585169) 8 2-16 BUN (test code = 0112179214) 9 mg/dL 7-23 GLUCOSE (test code = 9711325185) 93 mg/dL 70-110 CREATININE (test code = 0299733251) 0.60 mg/dL 0.50-1.04 TOTAL BILI (test code = 4087277162) 0.2 mg/dL 0.1-1.1 CALCIUM (test code = 6030286291) 9.2 mg/dL 8.6-10.6 T PROTEIN (test code = 3321857704) 7.0 g/dL 6.3-8.2 ALBUMIN (test code = 3483278577) 4.2 g/dL 3.5-5.0 ALK PHOS (test code = 1084446602) 118 U/L 34-122 ALTv (test code = 1742-6) 34 U/L 5-35 AST(SGOT) (test code = 3378577103) 34 U/L 13-40 eGFR (test code = 3119375062) 108.1 mL/min/1.73m2 ZAINAB (test code = ZAINAB) [...] urine or abnormalities in imaging tests). [facility]. METABOLIC PANEL ([id number])2022-11-03 17:25:32* Test Item Value Reference Range Interpretation Comme nts NA (test code = 0866111539) 139 mmol/L 135-145 K (test code = 9319509187) 4.2 mmol/L 3.5-5.0 CL (test code = 4637748737) 105 mmol/L 98-108 CO2 TOTAL (test code = 6972726880) 26 mmol/L 23-31 AGAP (test code = 9078804807) 8 2-16 BUN (test code = 0480558707) 9 mg/dL 7-23 GLUCOSE (test code = 5191372340) 93 mg/dL 70-110 CREATININE (test code = 0421480017) 0.60 mg/dL 0.50-1.04 TOTAL BILI (test code = 8652789701) 0.2 mg/dL 0.1-1.1 CALCIUM (test code = 9056322021) 9.2 mg/dL 8.6-10.6 T PROTEIN (test code = 9997958788) 7.0 g/dL 6.3-8.2 ALBUMIN (test code = 6412325117) 4.2 g/dL 3.5-5.0 ALK PHOS (test code = 4300440561) 118 U/L 34-122 ALTv (test code = 1742-6) 34 U/L 5-35 AST(SGOT) (test code = 4011407882) 34 U/L 13-40 eGFR (test code = 5945559835) 108.1 mL/min/1.73m2 ZAINAB (test code = ZAINAB) [...] urine or abnormalities in imaging tests). [facility]. METABOLIC PANEL ([id number])2022-11-03 17:25:32* Test Item Value Reference Range Interpretation Comme nts NA (test code = 8512677401) 139 mmol/L 135-145 K (test code = 7220729032) 4.2 mmol/L 3.5-5.0 CL (test code = 1682529455) 105 mmol/L 98-108 CO2 TOTAL (test code = 6945280431) 26 mmol/L 23-31 AGAP (test code = 4618142366) 8 2-16 BUN (test code = 1245825645) 9 mg/dL 7-23 GLUCOSE (test code = 8990262908) 93 mg/dL 70-110 CREATININE (test code = 4336052817) 0.60 mg/dL 0.50-1.04 TOTAL BILI (test code = 8798395751) 0.2 mg/dL 0.1-1.1 CALCIUM (test code = 5516606786) 9.2 mg/dL 8.6-10.6 T PROTEIN (test code = 6151053673) 7.0 g/dL 6.3-8.2 ALBUMIN (test code = 0821464083) 4.2 g/dL 3.5-5.0 ALK PHOS (test code = 4310988748) 118 U/L 34-122 ALTv (test code = 1742-6) 34 U/L 5-35 AST(SGOT) (test code = 2801619567) 34 U/L 13-40 eGFR (test code = 4505314034) 108.1 mL/min/1.73m2 ZAINAB (test code = ZAINAB) [...] urine or abnormalities in imaging tests). [facility]. METABOLIC PANEL ([id number])2022-11-03 17:25:32* Test Item Value Reference Range Interpretation Comme nts NA (test code = 1762349763) 139 mmol/L 135-145 K (test code = 4003888213) 4.2 mmol/L 3.5-5.0 CL (test code = 8365886932) 105 mmol/L 98-108 CO2 TOTAL (test code = 6070155450) 26 mmol/L 23-31 AGAP (test code = 2652312511) 8 2-16 BUN (test code = 1935581855) 9 mg/dL 7-23 GLUCOSE (test code = 9648350463) 93 mg/dL 70-110 CREATININE (test code = 5563824072) 0.60 mg/dL 0.50-1.04 TOTAL BILI (test code = 7005026334) 0.2 mg/dL 0.1-1.1 CALCIUM (test code = 9862261999) 9.2 mg/dL 8.6-10.6 T PROTEIN (test code = 2129396594) 7.0 g/dL 6.3-8.2 ALBUMIN (test code = 3469509338) 4.2 g/dL 3.5-5.0 ALK PHOS (test code = 2427245460) 118 U/L 34-122 ALTv (test code = 1742-6) 34 U/L 5-35 AST(SGOT) (test code = 7884018691) 34 U/L 13-40 eGFR (test code = 16870-5) 108.1 mL/min/1.73m2 ZAINAB (test code = ZAINAB) [...] urine or abnormalities in imaging tests). [facility]. METABOLIC PANEL ([id number])2022-11-03 17:25:32* Test Item Value Reference Range Interpretation Comme nts NA (test code = 8978469501) 139 mmol/L 135-145 K (test code = 8465928546) 4.2 mmol/L 3.5-5.0 CL (test code = 0138861987) 105 mmol/L 98-108 CO2 TOTAL (test code = 1216865798) 26 mmol/L 23-31 AGAP (test code = 4498591096) 8 2-16 BUN (test code = 2252346832) 9 mg/dL 7-23 GLUCOSE (test code = 2096860196) 93 mg/dL 70-110 CREATININE (test code = 2121742810) 0.60 mg/dL 0.50-1.04 TOTAL BILI (test code = 6614729083) 0.2 mg/dL 0.1-1.1 CALCIUM (test code = 8362872753) 9.2 mg/dL 8.6-10.6 T PROTEIN (test code = 3264298614) 7.0 g/dL 6.3-8.2 ALBUMIN (test code = 2097756292) 4.2 g/dL 3.5-5.0 ALK PHOS (test code = 4251172340) 118 U/L 34-122 ALTv (test code = 1742-6) 34 U/L 5-35 AST(SGOT) (test code = 7639096164) 34 U/L 13-40 eGFR (test code = 68601-6) 108.1 mL/min/1.73m2 ZAINAB (test code = ZAINAB) [...] urine or abnormalities in imaging tests). [facility]. METABOLIC PANEL ([id number])2022-11-03 17:25:32* Test Item Value Reference Range Interpretation Comme nts NA (test code = 1035692071) 139 mmol/L 135-145 K (test code = 9070142964) 4.2 mmol/L 3.5-5.0 CL (test code = 6318436410) 105 mmol/L 98-108 CO2 TOTAL (test code = 6599524961) 26 mmol/L 23-31 AGAP (test code = 7511343808) 8 2-16 BUN (test code = 1181582123) 9 mg/dL 7-23 GLUCOSE (test code = 3160495091) 93 mg/dL 70-110 CREATININE (test code = 2756108891) 0.60 mg/dL 0.50-1.04 TOTAL BILI (test code = 4452691894) 0.2 mg/dL 0.1-1.1 CALCIUM (test code = 1922577370) 9.2 mg/dL 8.6-10.6 T PROTEIN (test code = 1125263543) 7.0 g/dL 6.3-8.2 ALBUMIN (test code = 2579227280) 4.2 g/dL 3.5-5.0 ALK PHOS (test code = 7065324373) 118 U/L 34-122 ALTv (test code = 1742-6) 34 U/L 5-35 AST(SGOT) (test code = 8832483358) 34 U/L 13-40 eGFR (test code = 98655-6) 108.1 mL/min/1.73m2 ZAINAB (test code = ZAINAB) [...] urine or abnormalities in imaging tests). [facility]. METABOLIC PANEL ([id number])2022-11-03 17:25:32* Test Item Value Reference Range Interpretation Comme nts NA (test code = 1072854430) 139 mmol/L 135-145 K (test code = 4952123425) 4.2 mmol/L 3.5-5.0 CL (test code = 1488905207) 105 mmol/L 98-108 CO2 TOTAL (test code = 1197358810) 26 mmol/L 23-31 AGAP (test code = 6287800929) 8 2-16 BUN (test code = 4655913329) 9 mg/dL 7-23 GLUCOSE (test code = 9125729659) 93 mg/dL 70-110 CREATININE (test code = 3133817549) 0.60 mg/dL 0.50-1.04 TOTAL BILI (test code = 0975046146) 0.2 mg/dL 0.1-1.1 CALCIUM (test code = 6380365091) 9.2 mg/dL 8.6-10.6 T PROTEIN (test code = 9328431459) 7.0 g/dL 6.3-8.2 ALBUMIN (test code = 5948586267) 4.2 g/dL 3.5-5.0 ALK PHOS (test code = 8420669759) 118 U/L 34-122 ALTv (test code = 1742-6) 34 U/L 5-35 AST(SGOT) (test code = 9083941943) 34 U/L 13-40 eGFR (test code = 77174-2) 108.1 mL/min/1.73m2 ZAINAB (test code = ZAINAB) [...] urine or abnormalities in imaging tests). [facility]. METABOLIC PANEL ([id number])2022-11-03 17:25:32* Test Item Value Reference Range Interpretation Comme nts NA (test code = 5027226512) 139 mmol/L 135-145 K (test code = 3230911153) 4.2 mmol/L 3.5-5.0 CL (test code = 7851607488) 105 mmol/L 98-108 CO2 TOTAL (test code = 3334258616) 26 mmol/L 23-31 AGAP (test code = 6346761593) 8 2-16 BUN (test code = 3757539082) 9 mg/dL 7-23 GLUCOSE (test code = 4541262635) 93 mg/dL 70-110 CREATININE (test code = 6299255385) 0.60 mg/dL 0.50-1.04 TOTAL BILI (test code = 8810570466) 0.2 mg/dL 0.1-1.1 CALCIUM (test code = 4704539710) 9.2 mg/dL 8.6-10.6 T PROTEIN (test code = 7666460962) 7.0 g/dL 6.3-8.2 ALBUMIN (test code = 8660554326) 4.2 g/dL 3.5-5.0 ALK PHOS (test code = 3886945299) 118 U/L 34-122 ALTv (test code = 1742-6) 34 U/L 5-35 AST(SGOT) (test code = 8884015329) 34 U/L 13-40 eGFR (test code = 57481-6) 108.1 mL/min/1.73m2 ZAINAB (test code = ZAINAB) [...] urine or abnormalities in imaging tests). [facility]. METABOLIC PANEL ([id number])2022-11-03 17:25:32* Test Item Value Reference Range Interpretation Comme nts NA (test code = 3817064845) 139 mmol/L 135-145 K (test code = 1990714634) 4.2 mmol/L 3.5-5.0 CL (test code = 3705745219) 105 mmol/L 98-108 CO2 TOTAL (test code = 4870610635) 26 mmol/L 23-31 AGAP (test code = 7980557315) 8 2-16 BUN (test code = 2154993755) 9 mg/dL 7-23 GLUCOSE (test code = 3725203891) 93 mg/dL 70-110 CREATININE (test code = 2175250896) 0.60 mg/dL 0.50-1.04 TOTAL BILI (test code = 5825769707) 0.2 mg/dL 0.1-1.1 CALCIUM (test code = 2912016844) 9.2 mg/dL 8.6-10.6 T PROTEIN (test code = 7152323770) 7.0 g/dL 6.3-8.2 ALBUMIN (test code = 5958759338) 4.2 g/dL 3.5-5.0 ALK PHOS (test code = 0242230024) 118 U/L 34-122 ALTv (test code = 1742-6) 34 U/L 5-35 AST(SGOT) (test code = 4302101673) 34 U/L 13-40 eGFR (test code = 92859-6) 108.1 mL/min/1.73m2 ZAINAB (test code = ZAINAB) [...] urine or abnormalities in imaging tests). [facility]. METABOLIC PANEL ([id number])2022-11-03 17:25:32* Test Item Value Reference Range Interpretation Comme nts NA (test code = 1199607494) 139 mmol/L 135-145 K (test code = 1810433642) 4.2 mmol/L 3.5-5.0 CL (test code = 9644866803) 105 mmol/L 98-108 CO2 TOTAL (test code = 8749893713) 26 mmol/L 23-31 AGAP (test code = 9695591885) 8 2-16 BUN (test code = 6702973083) 9 mg/dL 7-23 GLUCOSE (test code = 1771275984) 93 mg/dL 70-110 CREATININE (test code = 6931618611) 0.60 mg/dL 0.50-1.04 TOTAL BILI (test code = 2771614524) 0.2 mg/dL 0.1-1.1 CALCIUM (test code = 4841483312) 9.2 mg/dL 8.6-10.6 T PROTEIN (test code = 7957863057) 7.0 g/dL 6.3-8.2 ALBUMIN (test code = 5731330214) 4.2 g/dL 3.5-5.0 ALK PHOS (test code = 1957105276) 118 U/L 34-122 ALTv (test code = 1742-6) 34 U/L 5-35 AST(SGOT) (test code = 9082233902) 34 U/L 13-40 eGFR (test code = 01714-0) 108.1 mL/min/1.73m2 ZAINAB (test code = ZAINAB) [...] urine or abnormalities in imaging tests). [facility]. METABOLIC PANEL ([id number])2022-11-03 17:25:32* Test Item Value Reference Range Interpretation Comme nts NA (test code = 4689974080) 139 mmol/L 135-145 K (test code = 6527270105) 4.2 mmol/L 3.5-5.0 CL (test code = 1799966468) 105 mmol/L 98-108 CO2 TOTAL (test code = 2487985583) 26 mmol/L 23-31 AGAP (test code = 6166424294) 8 2-16 BUN (test code = 0689741831) 9 mg/dL 7-23 GLUCOSE (test code = 2030028263) 93 mg/dL 70-110 CREATININE (test code = 3799208004) 0.60 mg/dL 0.50-1.04 TOTAL BILI (test code = 5366195860) 0.2 mg/dL 0.1-1.1 CALCIUM (test code = 9300386479) 9.2 mg/dL 8.6-10.6 T PROTEIN (test code = 3234569728) 7.0 g/dL 6.3-8.2 ALBUMIN (test code = 1412684722) 4.2 g/dL 3.5-5.0 ALK PHOS (test code = 1433414956) 118 U/L 34-122 ALTv (test code = 1742-6) 34 U/L 5-35 AST(SGOT) (test code = 8718872175) 34 U/L 13-40 eGFR (test code = 08575-6) 108.1 mL/min/1.73m2 ZAINAB (test code = ZAINAB) [...] urine or abnormalities in imaging tests). [facility]. METABOLIC PANEL (02473)2022-11-03 17:25:32* Test Item Value Reference Range Interpretation Comme nts NA (test code = 7216108549) 139 mmol/L 135-145 K (test code = 1043121410) 4.2 mmol/L 3.5-5.0 CL (test code = 1885150296) 105 mmol/L 98-108 CO2 TOTAL (test code = 7884136291) 26 mmol/L 23-31 AGAP (test code = 4021998821) 8 2-16 BUN (test code = 3927504986) 9 mg/dL 7-23 GLUCOSE (test code = 9575392032) 93 mg/dL 70-110 CREATININE (test code = 6099792510) 0.60 mg/dL 0.50-1.04 TOTAL BILI (test code = 0616655961) 0.2 mg/dL 0.1-1.1 CALCIUM (test code = 4237849573) 9.2 mg/dL 8.6-10.6 T PROTEIN (test code = 6844420505) 7.0 g/dL 6.3-8.2 ALBUMIN (test code = 5154952324) 4.2 g/dL 3.5-5.0 ALK PHOS (test code = 7184753618) 118 U/L 34-122 ALTv (test code = 1742-6) 34 U/L 5-35 AST(SGOT) (test code = 6775103790) 34 U/L 13-40 eGFR (test code = 13608-8) 108.1 mL/min/1.73m2 ZAINAB (test code = ZAINAB) [...] urine or abnormalities in imaging tests). [facility]. METABOLIC PANEL ([id number])2022-11-03 17:25:32* Test Item Value Reference Range Interpretation Comme nts NA (test code = 7983715494) 139 mmol/L 135-145 K (test code = 3127668200) 4.2 mmol/L 3.5-5.0 CL (test code = 7643715416) 105 mmol/L 98-108 CO2 TOTAL (test code = 6937293737) 26 mmol/L 23-31 AGAP (test code = 6673933377) 8 2-16 BUN (test code = 9310525668) 9 mg/dL 7-23 GLUCOSE (test code = 2370662376) 93 mg/dL 70-110 CREATININE (test code = 1432275956) 0.60 mg/dL 0.50-1.04 TOTAL BILI (test code = 7237855265) 0.2 mg/dL 0.1-1.1 CALCIUM (test code = 4404454476) 9.2 mg/dL 8.6-10.6 T PROTEIN (test code = 1886865701) 7.0 g/dL 6.3-8.2 ALBUMIN (test code = 0056893220) 4.2 g/dL 3.5-5.0 ALK PHOS (test code = 2306545325) 118 U/L 34-122 ALTv (test code = 1742-6) 34 U/L 5-35 AST(SGOT) (test code = 5507500245) 34 U/L 13-40 eGFR (test code = 22971-5) 108.1 mL/min/1.73m2 ZAINAB (test code = ZAINAB) [...] or urine or abnormalities in imaging tests). [facility] WITH [id number] 17:18:52* Test Item Value Reference Range Interpretation Comme nts WBC (test code = 6690-2) 7.41 See_Comment [[employer]] The system which generated this result transmitted [...] g/dL 31.6-35.1 L RDW-SD (test code = 52471-8) 46.2 fL 39.0-49.9 RDW-CV (test code = 788-0) 17.9 % 12.0-15.5 H PLT (test code = 777-3) 304 See_Comment [[employer]] The system which generated this result transmitted reference range: 166 - 358 10*3/?L. The reference range was not used to interpret this result as normal/abnormal. MPV (test code = 64238-0) 11.0 fL 9.5-12.9 NRBC/100 WBC (test code = 9279198583) 0.0 See_Comment [Automated [employer] ssage] The system which generated this result transmitted reference range: 0.0 - 10.0 /100 WBCs. The reference range was not used to interpret this result as normal/abnormal. NRBC x10^3 (test code = 5678689096) See_Comment [[employer]] The system which generated this result transmitted reference range: 10*3/?L. The reference range was not used to interpret this result as normal/abnormal. GRAN MAT (NEUT) % (test code = 770-8) 68.6 % IMM GRAN % (test code = 3065280427) 0.70 % LYMPH % (test code = 736-9) 19.8 % MONO % (test code = 5905-5) 5.3 % EOS % (test code = 713-8) 5.1 % BASO % (test code = 706-2) 0.5 % GRAN MAT x10^3(ANC) (test code = 0079446693) 5.08 10*3/uL 1.88-7.09 IMM GRAN x10^3 (test code = 0380935931) 0.05 10*3/uL 0.00-0.06 LYMPH x10^3 (test code = 731-0) 1.47 10*3/uL 1.32-3.29 MONO x10^3 (test code = 742-7) 0.39 10*3/uL 0.33-0.92 EOS x10^3 (test code = 711-2) 0.38 10*3/uL 0.03-0.39 BASO x10^3 (test code = 704-7) 0.04 10*3/uL 0.01-0.07 Lab Interpretation (test code = 31616-1) Abnormal [facility] WITH [id number] 17:18:52* Test Item Value Reference Range Interpretation Comme nts WBC (test code = 6690-2) 7.41 See_Comment [[employer]ated [employer]] The system which generated this result transmitted reference range: 4.30 - 11.10 10*3/?L. The reference range was not used to interpret this result as normal/abnormal. RBC (test code = 789-8) 4.20 See_Comment [Automated [employer]] The system which generated this result transmitted [...] g/dL 31.6-35.1 L RDW-SD (test code = 86455-5) 46.2 fL 39.0-49.9 RDW-CV (test code = 788-0) 17.9 % 12.0-15.5 H PLT (test code = 777-3) 304 See_Comment [Automated messa ge] The system which generated this result transmitted reference range: 166 - 358 10*3/?L. The reference range was not used to interpret this result as normal/abnormal. MPV (test code = 62032-9) 11.0 fL 9.5-12.9 NRBC/100 WBC (test code = 1017492298) 0.0 See_Comment [Automated me ssage] The system which generated this result transmitted reference range: 0.0 - 10.0 /100 WBCs. The reference range was not used to interpret this result as normal/abnormal. NRBC x10^3 (test code = 9274865085) See_Comment [Automated messa ge] The system which generated this result transmitted reference range: 10*3/?L. The reference range was not used to interpret this result as normal/abnormal. GRAN MAT (NEUT) % (test code = 770-8) 68.6 % IMM GRAN % (test code = 6265380045) 0.70 % LYMPH % (test code = 736-9) 19.8 % MONO % (test code = 5905-5) 5.3 % EOS % (test code = 713-8) 5.1 % BASO % (test code = 706-2) 0.5 % GRAN MAT x10^3(ANC) (test code = 3945969923) 5.08 10*3/uL 1.88-7.09 IMM GRAN x10^3 (test code = 8360778256) 0.05 10*3/uL 0.00-0.06 LYMPH x10^3 (test code = 731-0) 1.47 10*3/uL 1.32-3.29 MONO x10^3 (test code = 742-7) 0.39 10*3/uL 0.33-0.92 EOS x10^3 (test code = 711-2) 0.38 10*3/uL 0.03-0.39 BASO x10^3 (test code = 704-7) 0.04 10*3/uL 0.01-0.07 Lab Interpretation (test code = 03204-7) Abnormal [facility] WITH [id number] 17:18:52* Test Item Value Reference Range Interpretation [...] g/dL 31.6-35.1 L RDW-SD (test code = 57977-4) 46.2 fL 39.0-49.9 RDW-CV (test code = 788-0) 17.9 % 12.0-15.5 H PLT (test code = 777-3) 304 See_Comment [Automated messa ge] The system which generated this result transmitted reference range: 166 - 358 10*3/?L. The reference range was not used to interpret this result as normal/abnormal. MPV (test code = 56710-5) 11.0 fL 9.5-12.9 NRBC/100 WBC (test code = 2190738151) 0.0 See_Comment [Automated [employer] ssage] The system which generated this result transmitted reference range: 0.0 - 10.0 /100 WBCs. The reference range was not used to interpret this result as normal/abnormal. NRBC x10^3 (test code = 3959010612) See_Comment [Automated messa ge] The system which generated this result transmitted reference range: 10*3/?L. The reference range was not used to interpret this result as normal/abnormal. GRAN MAT (NEUT) % (test code = 770-8) 68.6 % IMM GRAN % (test code = 5576033021) 0.70 % LYMPH % (test code = 736-9) 19.8 % MONO % (test code = 5905-5) 5.3 % EOS % (test code = 713-8) 5.1 % BASO % (test code = 706-2) 0.5 % GRAN MAT x10^3(ANC) (test code = 5080288027) 5.08 10*3/uL 1.88-7.09 IMM GRAN x10^3 (test code = 8048300705) 0.05 10*3/uL 0.00-0.06 LYMPH x10^3 (test code = 731-0) 1.47 10*3/uL 1.32-3.29 MONO x10^3 (test code = 742-7) 0.39 10*3/uL 0.33-0.92 EOS x10^3 (test code = 711-2) 0.38 10*3/uL 0.03-0.39 BASO x10^3 (test code = 704-7) 0.04 10*3/uL 0.01-0.07 Lab Interpretation (test code = 06201-4) Abnormal [facility] WITH [id number] 17:18:52* Test Item Value Reference Range Interpretation [...] g/dL 31.6-35.1 L RDW-SD (test code = 03344-3) 46.2 fL 39.0-49.9 RDW-CV (test code = 788-0) 17.9 % 12.0-15.5 H PLT (test code = 777-3) 304 See_Comment [Automated messa ge] The system which generated this result transmitted reference range: 166 - 358 10*3/?L. The reference range was not used to interpret this result as normal/abnormal. MPV (test code = 64107-7) 11.0 fL 9.5-12.9 NRBC/100 WBC (test code = 8960106662) 0.0 See_Comment [Automated [employer] ssage] The system which generated this result transmitted reference range: 0.0 - 10.0 /100 WBCs. The reference range was not used to interpret this result as normal/abnormal. NRBC x10^3 (test code = 8139881938) See_Comment [Automated [employer]] The system which generated this result transmitted reference range: 10*3/?L. The reference range was not used to interpret this result as normal/abnormal. GRAN MAT (NEUT) % (test code = 770-8) 68.6 % IMM GRAN % (test code = 5458465811) 0.70 % LYMPH % (test code = 736-9) 19.8 % MONO % (test code = 5905-5) 5.3 % EOS % (test code = 713-8) 5.1 % BASO % (test code = 706-2) 0.5 % GRAN MAT x10^3(ANC) (test code = 3375947702) 5.08 10*3/uL 1.88-7.09 IMM GRAN x10^3 (test code = 3456977667) 0.05 10*3/uL 0.00-0.06 LYMPH x10^3 (test code = 731-0) 1.47 10*3/uL 1.32-3.29 MONO x10^3 (test code = 742-7) 0.39 10*3/uL 0.33-0.92 EOS x10^3 (test code = 711-2) 0.38 10*3/uL 0.03-0.39 BASO x10^3 (test code = 704-7) 0.04 10*3/uL 0.01-0.07 Lab Interpretation (test code = 27423-9) Abnormal [facility] WITH [id number] 17:18:52* Test Item Value Reference Range Interpretation [...] g/dL 31.6-35.1 L RDW-SD (test code = 91686-4) 46.2 fL 39.0-49.9 RDW-CV (test code = 788-0) 17.9 % 12.0-15.5 H PLT (test code = 777-3) 304 See_Comment [Automated messa ge] The system which generated this result transmitted reference range: 166 - 358 10*3/?L. The reference range was not used to interpret this result as normal/abnormal. MPV (test code = 59129-3) 11.0 fL 9.5-12.9 NRBC/100 WBC (test code = 9716070050) 0.0 See_Comment [Automated me ssage] The system which generated this result transmitted reference range: 0.0 - 10.0 /100 WBCs. The reference range was not used to interpret this result as normal/abnormal. NRBC x10^3 (test code = 2252139136) See_Comment [Automated messa ge] The system which generated this result transmitted reference range: 10*3/?L. The reference range was not used to interpret this result as normal/abnormal. GRAN MAT (NEUT) % (test code = 770-8) 68.6 % IMM GRAN % (test code = 9784525917) 0.70 % LYMPH % (test code = 736-9) 19.8 % MONO % (test code = 5905-5) 5.3 % EOS % (test code = 713-8) 5.1 % BASO % (test code = 706-2) 0.5 % GRAN MAT x10^3(ANC) (test code = 5043033385) 5.08 10*3/uL 1.88-7.09 IMM GRAN x10^3 (test code = 2433850054) 0.05 10*3/uL 0.00-0.06 LYMPH x10^3 (test code = 731-0) 1.47 10*3/uL 1.32-3.29 MONO x10^3 (test code = 742-7) 0.39 10*3/uL 0.33-0.92 EOS x10^3 (test code = 711-2) 0.38 10*3/uL 0.03-0.39 BASO x10^3 (test code = 704-7) 0.04 10*3/uL 0.01-0.07 Lab Interpretation (test code = 86196-3) Abnormal [facility] WITH [id number] 17:18:52* Test Item Value Reference Range Interpretation [...] g/dL 31.6-35.1 L RDW-SD (test code = 05862-2) 46.2 fL 39.0-49.9 RDW-CV (test code = 788-0) 17.9 % 12.0-15.5 H PLT (test code = 777-3) 304 See_Comment [Automated messa ge] The system which generated this result transmitted reference range: 166 - 358 10*3/?L. The reference range was not used to interpret this result as normal/abnormal. MPV (test code = 14626-9) 11.0 fL 9.5-12.9 NRBC/100 WBC (test code = 5336441955) 0.0 See_Comment [Automated [employer] ssage] The system which generated this result transmitted reference range: 0.0 - 10.0 /100 WBCs. The reference range was not used to interpret this result as normal/abnormal. NRBC x10^3 (test code = 7080929677) See_Comment [Automated messa ge] The system which generated this result transmitted reference range: 10*3/?L. The reference range was not used to interpret this result as normal/abnormal. GRAN MAT (NEUT) % (test code = 770-8) 68.6 % IMM GRAN % (test code = 8548625952) 0.70 % LYMPH % (test code = 736-9) 19.8 % MONO % (test code = 5905-5) 5.3 % EOS % (test code = 713-8) 5.1 % BASO % (test code = 706-2) 0.5 % GRAN MAT x10^3(ANC) (test code = 0766709024) 5.08 10*3/uL 1.88-7.09 IMM GRAN x10^3 (test code = 7928482636) 0.05 10*3/uL 0.00-0.06 LYMPH x10^3 (test code = 731-0) 1.47 10*3/uL 1.32-3.29 MONO x10^3 (test code = 742-7) 0.39 10*3/uL 0.33-0.92 EOS x10^3 (test code = 711-2) 0.38 10*3/uL 0.03-0.39 BASO x10^3 (test code = 704-7) 0.04 10*3/uL 0.01-0.07 Lab Interpretation (test code = 00994-5) Abnormal [facility] WITH [id number] 17:18:52* Test Item Value Reference Range Interpretation [...] g/dL 31.6-35.1 L RDW-SD (test code = 35162-0) 46.2 fL 39.0-49.9 RDW-CV (test code = 788-0) 17.9 % 12.0-15.5 H PLT (test code = 777-3) 304 See_Comment [Automated messa ge] The system which generated this result transmitted reference range: 166 - 358 10*3/?L. The reference range was not used to interpret this result as normal/abnormal. MPV (test code = 25609-1) 11.0 fL 9.5-12.9 NRBC/100 WBC (test code = 4519660419) 0.0 See_Comment [Automated me ssage] The system which generated this result transmitted reference range: 0.0 - 10.0 /100 WBCs. The reference range was not used to interpret this result as normal/abnormal. NRBC x10^3 (test code = 7080465038) See_Comment [Automated messa ge] The system which generated this result transmitted reference range: 10*3/?L. The reference range was not used to interpret this result as normal/abnormal. GRAN MAT (NEUT) % (test code = 770-8) 68.6 % IMM GRAN % (test code = 1744185765) 0.70 % LYMPH % (test code = 736-9) 19.8 % MONO % (test code = 5905-5) 5.3 % EOS % (test code = 713-8) 5.1 % BASO % (test code = 706-2) 0.5 % GRAN MAT x10^3(ANC) (test code = 1200991879) 5.08 10*3/uL 1.88-7.09 IMM GRAN x10^3 (test code = 8172906075) 0.05 10*3/uL 0.00-0.06 LYMPH x10^3 (test code = 731-0) 1.47 10*3/uL 1.32-3.29 MONO x10^3 (test code = 742-7) 0.39 10*3/uL 0.33-0.92 EOS x10^3 (test code = 711-2) 0.38 10*3/uL 0.03-0.39 BASO x10^3 (test code = 704-7) 0.04 10*3/uL 0.01-0.07 Lab Interpretation (test code = 00993-4) Abnormal [facility] WITH [id number] 17:18:52* Test Item Value Reference Range Interpretation Comme nts WBC (test code = 6690-2) 7.41 See_Comment [Automated messa ge] The system which generated this result transmitted reference range: 4.30 - 11.10 10*3/?L. The reference range was not used to interpret this result as normal/abnormal. RBC (test code = 789-8) 4.20 See_Comment [Automated Userstorylaba ge] The system which generated this result [...] g/dL 31.6-35.1 L RDW-SD (test code = 18688-7) 46.2 fL 39.0-49.9 RDW-CV (test code = 788-0) 17.9 % 12.0-15.5 H PLT (test code = 777-3) 304 See_Comment [Automated Userstorylaba ge] The system which generated this result transmitted reference range: 166 - 358 10*3/?L. The reference range was not used to interpret this result as normal/abnormal. MPV (test code = 49503-1) 11.0 fL 9.5-12.9 NRBC/100 WBC (test code = 0387327639) 0.0 See_Comment [Automated AIRTAME ssage] The system which generated this result transmitted reference range: 0.0 - 10.0 /100 WBCs. The reference range was not used to interpret this result as normal/abnormal. NRBC x10^3 (test code = 0881025023) See_Comment [Automated Userstorylaba ge] The system which generated this result transmitted reference range: 10*3/?L. The reference range was not used to interpret this result as normal/abnormal. GRAN MAT (NEUT) % (test code = 770-8) 68.6 % IMM GRAN % (test code = 3043404556) 0.70 % LYMPH % (test code = 736-9) 19.8 % MONO % (test code = 5905-5) 5.3 % EOS % (test code = 713-8) 5.1 % BASO % (test code = 706-2) 0.5 % GRAN MAT x10^3(ANC) (test code = 1706654912) 5.08 10*3/uL 1.88-7.09 IMM GRAN x10^3 (test code = 8798874859) 0.05 10*3/uL 0.00-0.06 LYMPH x10^3 (test code = 731-0) 1.47 10*3/uL 1.32-3.29 MONO x10^3 (test code = 742-7) 0.39 10*3/uL 0.33-0.92 EOS x10^3 (test code = 711-2) 0.38 10*3/uL 0.03-0.39 BASO x10^3 (test code = 704-7) 0.04 10*3/uL 0.01-0.07 Lab Interpretation (test code = 31310-2) Abnormal [facility] WITH [id number] 17:18:52* Test Item Value Reference Range Interpretation Comme nts WBC (test code = 6690-2) 7.41 See_Comment [Automated Userstorylaba ge] The system which generated this result transmitted reference range: 4.30 - 11.10 10*3/?L. The reference range was not used to interpret this result as normal/abnormal. RBC (test code = 789-8) 4.20 See_Comment [Automated Userstorylaba ge] The system which generated this result [...] g/dL 31.6-35.1 L RDW-SD (test code = 83125-0) 46.2 fL 39.0-49.9 RDW-CV (test code = 788-0) 17.9 % 12.0-15.5 H PLT (test code = 777-3) 304 See_Comment [Automated messa ge] The system which generated this result transmitted reference range: 166 - 358 10*3/?L. The reference range was not used to interpret this result as normal/abnormal. MPV (test code = 21006-4) 11.0 fL 9.5-12.9 NRBC/100 WBC (test code = 5638722566) 0.0 See_Comment [Automated AIRTAME ssage] The system which generated this result transmitted reference range: 0.0 - 10.0 /100 WBCs. The reference range was not used to interpret this result as normal/abnormal. NRBC x10^3 (test code = 3697138789) See_Comment [Automated messa ge] The system which generated this result transmitted reference range: 10*3/?L. The reference range was not used to interpret this result as normal/abnormal. GRAN MAT (NEUT) % (test code = 770-8) 68.6 % IMM GRAN % (test code = 9297387568) 0.70 % LYMPH % (test code = 736-9) 19.8 % MONO % (test code = 5905-5) 5.3 % EOS % (test code = 713-8) 5.1 % BASO % (test code = 706-2) 0.5 % GRAN MAT x10^3(ANC) (test code = 7540261719) 5.08 10*3/uL 1.88-7.09 IMM GRAN x10^3 (test code = 3583416582) 0.05 10*3/uL 0.00-0.06 LYMPH x10^3 (test code = 731-0) 1.47 10*3/uL 1.32-3.29 MONO x10^3 (test code = 742-7) 0.39 10*3/uL 0.33-0.92 EOS x10^3 (test code = 711-2) 0.38 10*3/uL 0.03-0.39 BASO x10^3 (test code = 704-7) 0.04 10*3/uL 0.01-0.07 Lab Interpretation (test code = 66644-5) Abnormal [facility] WITH [id number] 17:18:52* Test Item Value Reference Range Interpretation Comme nts WBC (test code = 6690-2) 7.41 See_Comment [Automated messa ge] The system which generated this result transmitted reference range: 4.30 - 11.10 10*3/?L. The reference range was not used to interpret this result as normal/abnormal. RBC (test code = 789-8) 4.20 See_Comment [Automated Userstorylaba ge] The system which generated this result [...] g/dL 31.6-35.1 L RDW-SD (test code = 64651-8) 46.2 fL 39.0-49.9 RDW-CV (test code = 788-0) 17.9 % 12.0-15.5 H PLT (test code = 777-3) 304 See_Comment [Automated messa ge] The system which generated this result transmitted reference range: 166 - 358 10*3/?L. The reference range was not used to interpret this result as normal/abnormal. MPV (test code = 20752-6) 11.0 fL 9.5-12.9 NRBC/100 WBC (test code = 1258352407) 0.0 See_Comment [Automated AIRTAME ssage] The system which generated this result transmitted reference range: 0.0 - 10.0 /100 WBCs. The reference range was not used to interpret this result as normal/abnormal. NRBC x10^3 (test code = 9159355050) See_Comment [Automated messa ge] The system which generated this result transmitted reference range: 10*3/?L. The reference range was not used to interpret this result as normal/abnormal. GRAN MAT (NEUT) % (test code = 770-8) 68.6 % IMM GRAN % (test code = 0203092626) 0.70 % LYMPH % (test code = 736-9) 19.8 % MONO % (test code = 5905-5) 5.3 % EOS % (test code = 713-8) 5.1 % BASO % (test code = 706-2) 0.5 % GRAN MAT x10^3(ANC) (test code = 1120530479) 5.08 10*3/uL 1.88-7.09 IMM GRAN x10^3 (test code = 9238355566) 0.05 10*3/uL 0.00-0.06 LYMPH x10^3 (test code = 731-0) 1.47 10*3/uL 1.32-3.29 MONO x10^3 (test code = 742-7) 0.39 10*3/uL 0.33-0.92 EOS x10^3 (test code = 711-2) 0.38 10*3/uL 0.03-0.39 BASO x10^3 (test code = 704-7) 0.04 10*3/uL 0.01-0.07 Lab Interpretation (test code = 07923-6) Abnormal [facility] WITH [id number] 17:18:52* Test Item Value Reference Range Interpretation [...] g/dL 31.6-35.1 L RDW-SD (test code = 92164-5) 46.2 fL 39.0-49.9 RDW-CV (test code = 788-0) 17.9 % 12.0-15.5 H PLT (test code = 777-3) 304 See_Comment [Automated messa ge] The system which generated this result transmitted reference range: 166 - 358 10*3/?L. The reference range was not used to interpret this result as normal/abnormal. MPV (test code = 33638-5) 11.0 fL 9.5-12.9 NRBC/100 WBC (test code = 3322795702) 0.0 See_Comment [Automated AIRTAME ssage] The system which generated this result transmitted reference range: 0.0 - 10.0 /100 WBCs. The reference range was not used to interpret this result as normal/abnormal. NRBC x10^3 (test code = 4752000614) See_Comment [Automated messa ge] The system which generated this result transmitted reference range: 10*3/?L. The reference range was not used to interpret this result as normal/abnormal. GRAN MAT (NEUT) % (test code = 770-8) 68.6 % IMM GRAN % (test code = 9734569107) 0.70 % LYMPH % (test code = 736-9) 19.8 % MONO % (test code = 5905-5) 5.3 % EOS % (test code = 713-8) 5.1 % BASO % (test code = 706-2) 0.5 % GRAN MAT x10^3(ANC) (test code = 4439733884) 5.08 10*3/uL 1.88-7.09 IMM GRAN x10^3 (test code = 2843867311) 0.05 10*3/uL 0.00-0.06 LYMPH x10^3 (test code = 731-0) 1.47 10*3/uL 1.32-3.29 MONO x10^3 (test code = 742-7) 0.39 10*3/uL 0.33-0.92 EOS x10^3 (test code = 711-2) 0.38 10*3/uL 0.03-0.39 BASO x10^3 (test code = 704-7) 0.04 10*3/uL 0.01-0.07 Lab Interpretation (test code = 83726-4) Abnormal [facility] WITH [id number] 17:18:52* Test Item Value Reference Range Interpretation Comme nts WBC (test code = 6690-2) 7.41 See_Comment [Automated Userstorylaba ge] The system which generated this result transmitted reference range: 4.30 - 11.10 10*3/?L. The reference range was not used to interpret this result as normal/abnormal. RBC (test code = 789-8) 4.20 See_Comment [Automated Userstorylaba ge] The system which generated this result [...] g/dL 31.6-35.1 L RDW-SD (test code = 99136-7) 46.2 fL 39.0-49.9 RDW-CV (test code = 788-0) 17.9 % 12.0-15.5 H PLT (test code = 777-3) 304 See_Comment [Automated messa ge] The system which generated this result transmitted reference range: 166 - 358 10*3/?L. The reference range was not used to interpret this result as normal/abnormal. MPV (test code = 37835-0) 11.0 fL 9.5-12.9 NRBC/100 WBC (test code = 3175884635) 0.0 See_Comment [Automated me ssage] The system which generated this result transmitted reference range: 0.0 - 10.0 /100 WBCs. The reference range was not used to interpret this result as normal/abnormal. NRBC x10^3 (test code = 8547897397) See_Comment [Automated messa ge] The system which generated this result transmitted reference range: 10*3/?L. The reference range was not used to interpret this result as normal/abnormal. GRAN MAT (NEUT) % (test code = 770-8) 68.6 % IMM GRAN % (test code = 0883253802) 0.70 % LYMPH % (test code = 736-9) 19.8 % MONO % (test code = 5905-5) 5.3 % EOS % (test code = 713-8) 5.1 % BASO % (test code = 706-2) 0.5 % GRAN MAT x10^3(ANC) (test code = 6788784551) 5.08 10*3/uL 1.88-7.09 IMM GRAN x10^3 (test code = 4423595305) 0.05 10*3/uL 0.00-0.06 LYMPH x10^3 (test code = 731-0) 1.47 10*3/uL 1.32-3.29 MONO x10^3 (test code = 742-7) 0.39 10*3/uL 0.33-0.92 EOS x10^3 (test code = 711-2) 0.38 10*3/uL 0.03-0.39 BASO x10^3 (test code = 704-7) 0.04 10*3/uL 0.01-0.07 Lab Interpretation (test code = 42716-1) Abnormal [facility] WITH [id number] 17:18:52* Test Item Value Reference Range Interpretation [...] g/dL 31.6-35.1 L RDW-SD (test code = 43855-3) 46.2 fL 39.0-49.9 RDW-CV (test code = 788-0) 17.9 % 12.0-15.5 H PLT (test code = 777-3) 304 See_Comment [Automated Userstorylaba ge] The system which generated this result transmitted reference range: 166 - 358 10*3/?L. The reference range was not used to interpret this result as normal/abnormal. MPV (test code = 23871-9) 11.0 fL 9.5-12.9 NRBC/100 WBC (test code = 0844345413) 0.0 See_Comment [Automated AIRTAME ssage] The system which generated this result transmitted reference range: 0.0 - 10.0 /100 WBCs. The reference range was not used to interpret this result as normal/abnormal. NRBC x10^3 (test code = 6106012962) See_Comment [Automated Userstorylaba ge] The system which generated this result transmitted reference range: 10*3/?L. The reference range was not used to interpret this result as normal/abnormal. GRAN MAT (NEUT) % (test code = 770-8) 68.6 % IMM GRAN % (test code = 5200734580) 0.70 % LYMPH % (test code = 736-9) 19.8 % MONO % (test code = 5905-5) 5.3 % EOS % (test code = 713-8) 5.1 % BASO % (test code = 706-2) 0.5 % GRAN MAT x10^3(ANC) (test code = 6786788944) 5.08 10*3/uL 1.88-7.09 IMM GRAN x10^3 (test code = 6763760654) 0.05 10*3/uL 0.00-0.06 LYMPH x10^3 (test code = 731-0) 1.47 10*3/uL 1.32-3.29 MONO x10^3 (test code = 742-7) 0.39 10*3/uL 0.33-0.92 EOS x10^3 (test code = 711-2) 0.38 10*3/uL 0.03-0.39 BASO x10^3 (test code = 704-7) 0.04 10*3/uL 0.01-0.07 Lab Interpretation (test code = 28054-4) Abnormal [facility] WITH [id number] 17:18:52* Test Item Value Reference Range Interpretation Comme nts WBC (test code = 6690-2) 7.41 See_Comment [Automated Userstorylaba ge] The system which generated this result transmitted reference range: 4.30 - 11.10 10*3/?L. The reference range was not used to interpret this result as normal/abnormal. RBC (test code = 789-8) 4.20 See_Comment [Automated Userstorylaba ge] The system which generated this result [...] g/dL 31.6-35.1 L RDW-SD (test code = 04460-0) 46.2 fL 39.0-49.9 RDW-CV (test code = 788-0) 17.9 % 12.0-15.5 H PLT (test code = 777-3) 304 See_Comment [Automated messa ge] The system which generated this result transmitted reference range: 166 - 358 10*3/?L. The reference range was not used to interpret this result as normal/abnormal. MPV (test code = 66793-2) 11.0 fL 9.5-12.9 NRBC/100 WBC (test code = 9697120730) 0.0 See_Comment [Automated me ssage] The system which generated this result transmitted reference range: 0.0 - 10.0 /100 WBCs. The reference range was not used to interpret this result as normal/abnormal. NRBC x10^3 (test code = 9770379385) See_Comment [Automated messa ge] The system which generated this result transmitted reference range: 10*3/?L. The reference range was not used to interpret this result as normal/abnormal. GRAN MAT (NEUT) % (test code = 770-8) 68.6 % IMM GRAN % (test code = 6837926585) 0.70 % LYMPH % (test code = 736-9) 19.8 % MONO % (test code = 5905-5) 5.3 % EOS % (test code = 713-8) 5.1 % BASO % (test code = 706-2) 0.5 % GRAN MAT x10^3(ANC) (test code = 2165249591) 5.08 10*3/uL 1.88-7.09 IMM GRAN x10^3 (test code = 5594388248) 0.05 10*3/uL 0.00-0.06 LYMPH x10^3 (test code = 731-0) 1.47 10*3/uL 1.32-3.29 MONO x10^3 (test code = 742-7) 0.39 10*3/uL 0.33-0.92 EOS x10^3 (test code = 711-2) 0.38 10*3/uL 0.03-0.39 BASO x10^3 (test code = 704-7) 0.04 10*3/uL 0.01-0.07 Lab Interpretation (test code = 91512-8) Abnormal [facility] WITH [id number] 17:18:52* Test Item Value Reference Range Interpretation [...] g/dL 31.6-35.1 L RDW-SD (test code = 96446-6) 46.2 fL 39.0-49.9 RDW-CV (test code = 788-0) 17.9 % 12.0-15.5 H PLT (test code = 777-3) 304 See_Comment [Automated messa ge] The system which generated this result transmitted reference range: 166 - 358 10*3/?L. The reference range was not used to interpret this result as normal/abnormal. MPV (test code = 09400-5) 11.0 fL 9.5-12.9 NRBC/100 WBC (test code = 9881530595) 0.0 See_Comment [Automated AIRTAME ssage] The system which generated this result transmitted reference range: 0.0 - 10.0 /100 WBCs. The reference range was not used to interpret this result as normal/abnormal. NRBC x10^3 (test code = 8846097462) See_Comment [Automated messa ge] The system which generated this result transmitted reference range: 10*3/?L. The reference range was not used to interpret this result as normal/abnormal. GRAN MAT (NEUT) % (test code = 770-8) 68.6 % IMM GRAN % (test code = 7464710326) 0.70 % LYMPH % (test code = 736-9) 19.8 % MONO % (test code = 5905-5) 5.3 % EOS % (test code = 713-8) 5.1 % BASO % (test code = 706-2) 0.5 % GRAN MAT x10^3(ANC) (test code = 3748411275) 5.08 10*3/uL 1.88-7.09 IMM GRAN x10^3 (test code = 4768447800) 0.05 10*3/uL 0.00-0.06 LYMPH x10^3 (test code = 731-0) 1.47 10*3/uL 1.32-3.29 MONO x10^3 (test code = 742-7) 0.39 10*3/uL 0.33-0.92 EOS x10^3 (test code = 711-2) 0.38 10*3/uL 0.03-0.39 BASO x10^3 (test code = 704-7) 0.04 10*3/uL 0.01-0.07 Lab Interpretation (test code = 10955-9) Abnormal [facility] WITH [id number] 17:18:52* Test Item Value Reference Range Interpretation Comme nts WBC (test code = 6690-2) 7.41 See_Comment [Automated Userstorylaba ge] The system which generated this result transmitted reference range: 4.30 - 11.10 10*3/?L. The reference range was not used to interpret this result as normal/abnormal. RBC (test code = 789-8) 4.20 See_Comment [Automated Userstorylaba ge] The system which generated this result [...] g/dL 31.6-35.1 L RDW-SD (test code = 27164-6) 46.2 fL 39.0-49.9 RDW-CV (test code = 788-0) 17.9 % 12.0-15.5 H PLT (test code = 777-3) 304 See_Comment [Automated messa ge] The system which generated this result transmitted reference range: 166 - 358 10*3/?L. The reference range was not used to interpret this result as normal/abnormal. MPV (test code = 73206-1) 11.0 fL 9.5-12.9 NRBC/100 WBC (test code = 1560556177) 0.0 See_Comment [Automated AIRTAME ssage] The system which generated this result transmitted reference range: 0.0 - 10.0 /100 WBCs. The reference range was not used to interpret this result as normal/abnormal. NRBC x10^3 (test code = 0641710865) See_Comment [Automated Userstorylaba ge] The system which generated this result transmitted reference range: 10*3/?L. The reference range was not used to interpret this result as normal/abnormal. GRAN MAT (NEUT) % (test code = 770-8) 68.6 % IMM GRAN % (test code = 4643887044) 0.70 % LYMPH % (test code = 736-9) 19.8 % MONO % (test code = 5905-5) 5.3 % EOS % (test code = 713-8) 5.1 % BASO % (test code = 706-2) 0.5 % GRAN MAT x10^3(ANC) (test code = 3396961463) 5.08 10*3/uL 1.88-7.09 IMM GRAN x10^3 (test code = 8678106065) 0.05 10*3/uL 0.00-0.06 LYMPH x10^3 (test code = 731-0) 1.47 10*3/uL 1.32-3.29 MONO x10^3 (test code = 742-7) 0.39 10*3/uL 0.33-0.92 EOS x10^3 (test code = 711-2) 0.38 10*3/uL 0.03-0.39 BASO x10^3 (test code = 704-7) 0.04 10*3/uL 0.01-0.07 Lab Interpretation (test code = 04115-0) Abnormal [facility] WITH [id number] 17:18:52* Test Item Value Reference Range Interpretation Comme nts WBC (test code = 6690-2) 7.41 See_Comment [Automated [employer]] The system which generated this result transmitted reference range: 4.30 - 11.10 10*3/?L. The reference range was not used to interpret this result as normal/abnormal. RBC (test code = 789-8) 4.20 See_Comment [Automated Userstorylaba [employer]] The system which generated this result transmitted [...] g/dL 31.6-35.1 L RDW-SD (test code = 85749-3) 46.2 fL 39.0-49.9 RDW-CV (test code = 788-0) 17.9 % 12.0-15.5 H PLT (test code = 777-3) 304 See_Comment [Automated Userstorylaba ge] The system which generated this result transmitted reference range: 166 - 358 10*3/?L. The reference range was not used to interpret this result as normal/abnormal. MPV (test code = 79383-9) 11.0 fL 9.5-12.9 NRBC/100 WBC (test code = 2306741353) 0.0 See_Comment [Automated me ssage] The system which generated this result transmitted reference range: 0.0 - 10.0 /100 WBCs. The reference range was not used to interpret this result as normal/abnormal. NRBC x10^3 (test code = 3238760611) See_Comment [Automated messa ge] The system which generated this result transmitted reference range: 10*3/?L. The reference range was not used to interpret this result as normal/abnormal. GRAN MAT (NEUT) % (test code = 770-8) 68.6 % IMM GRAN % (test code = 4100635105) 0.70 % LYMPH % (test code = 736-9) 19.8 % MONO % (test code = 5905-5) 5.3 % EOS % (test code = 713-8) 5.1 % BASO % (test code = 706-2) 0.5 % GRAN MAT x10^3(ANC) (test code = 4819763696) 5.08 10*3/uL 1.88-7.09 IMM GRAN x10^3 (test code = 9909370603) 0.05 10*3/uL 0.00-0.06 LYMPH x10^3 (test code = 731-0) 1.47 10*3/uL 1.32-3.29 MONO x10^3 (test code = 742-7) 0.39 10*3/uL 0.33-0.92 EOS x10^3 (test code = 711-2) 0.38 10*3/uL 0.03-0.39 BASO x10^3 (test code = 704-7) 0.04 10*3/uL 0.01-0.07 Lab Interpretation (test code = 72054-0) Abnormal [facility] WITH [id number] 17:18:52* Test Item Value Reference Range Interpretation [...] g/dL 31.6-35.1 L RDW-SD (test code = 29340-4) 46.2 fL 39.0-49.9 RDW-CV (test code = 788-0) 17.9 % 12.0-15.5 H PLT (test code = 777-3) 304 See_Comment [Automated messa ge] The system which generated this result transmitted reference range: 166 - 358 10*3/?L. The reference range was not used to interpret this result as normal/abnormal. MPV (test code = 89257-0) 11.0 fL 9.5-12.9 NRBC/100 WBC (test code = 6210626067) 0.0 See_Comment [Automated [employer]IRT[employer] ssage] The system which generated this result transmitted reference range: 0.0 - 10.0 /100 WBCs. The reference range was not used to interpret this result as normal/abnormal. NRBC x10^3 (test code = 2384378878) See_Comment [Automated messa ge] The system which generated this result transmitted reference range: 10*3/?L. The reference range was not used to interpret this result as normal/abnormal. GRAN MAT (NEUT) % (test code = 770-8) 68.6 % IMM GRAN % (test code = 6753016069) 0.70 % LYMPH % (test code = 736-9) 19.8 % MONO % (test code = 5905-5) 5.3 % EOS % (test code = 713-8) 5.1 % BASO % (test code = 706-2) 0.5 % GRAN MAT x10^3(ANC) (test code = 0438448734) 5.08 10*3/uL 1.88-7.09 IMM GRAN x10^3 (test code = 0688088401) 0.05 10*3/uL 0.00-0.06 LYMPH x10^3 (test code = 731-0) 1.47 10*3/uL 1.32-3.29 MONO x10^3 (test code = 742-7) 0.39 10*3/uL 0.33-0.92 EOS x10^3 (test code = 711-2) 0.38 10*3/uL 0.03-0.39 BASO x10^3 (test code = 704-7) 0.04 10*3/uL 0.01-0.07 Lab Interpretation (test code = 71205-5) Abnormal [facility] [id number] 16:24:00* Test Item Value Reference Range Interpretation Comme nts POCT PREG (test code = 1605) Negative On board controls acceptable with C Line (test code = 3574) Yes POCT PREG LOT # (test code = 3575) [id number] POCT PREG TEST DATE ( test code = 357) 04-11-2024 Lab Interpretation (test cod e = 44391-8) Normal [facility] [id number] 16:24:00* Test Item Value Reference Range Interpretation Comme nts POCT PREG (test code = 1605) Negative On board controls acceptable with C Line (test code = 3574) Yes POCT PREG LOT # (test code = 3575) [id number] POCT PREG TEST DATE ( test code = 3576) 04-11-2024 Lab Interpretation (test cod e = 78332-7) Normal [facility] [id number] 16:24:00* Test Item Value Reference Range Interpretation Comme nts POCT PREG (test code = 1605) Negative On board controls acceptable with C Line (test code = 3574) Yes POCT PREG LOT # (test code = 3575) [id number] POCT PREG TEST DATE ( test code = 357) 04-11-2024 Lab Interpretation (test cod e = 94653-6) [facility] [id number] 16:24:00* Test Item Value Reference Range Interpretation Comme nts POCT PREG (test code = 1605) Negative On board controls acceptable with C Line (test code = 3574) Yes POCT PREG LOT # (test code = 3575) [id number] POCT PREG TEST DATE ( test code = 3576) 04-11-2024 Lab Interpretation (test cod e = 53447-9) [facility] [id number] 16:24:00* Test Item Value Reference Range Interpretation Comme nts POCT PREG (test code = 1605) Negative On board controls acceptable with C Line (test code = 3574) Yes POCT PREG LOT # (test code = 3575) [id number] POCT PREG TEST DATE ( test code = 3576) 04-11-2024 Lab Interpretation (test cod e = 43299-4) [facility] [id number] 16:24:00* Test Item Value Reference Range Interpretation Comme nts POCT PREG (test code = 1605) Negative On board controls acceptable with C Line (test code = 3574) Yes POCT PREG LOT # (test code = 3575) [id number] POCT PREG TEST DATE ( test code = 3576) 04-11-2024 Lab Interpretation (test cod e = 05660-6) [facility] [id number] 16:24:00* Test Item Value Reference Range Interpretation Comme nts POCT PREG (test code = 1605) Negative On board controls acceptable with C Line (test code = 3574) Yes POCT PREG LOT # (test code = 3575) [id number] POCT PREG TEST DATE ( test code = 3576) 04-11-2024 Lab Interpretation (test cod e = 99985-1) [facility] [id number] 16:24:00* Test Item Value Reference Range Interpretation Comme nts POCT PREG (test code = 1605) Negative On board controls acceptable with C Line (test code = 3574) Yes POCT PREG LOT # (test code = 3575) [id number] POCT PREG TEST DATE ( test code = 3576) 04-11-2024 Lab Interpretation (test cod e = 34678-4) [facility] [id number] 16:24:00* Test Item Value Reference Range Interpretation Comme nts POCT PREG (test code = 1605) Negative On board controls acceptable with C Line (test code = 3574) Yes POCT PREG LOT # (test code = 3575) [id number] POCT PREG TEST DATE ( test code = 3576) 04-11-2024 Lab Interpretation (test cod e = 87720-6) [facility] [id number] 16:24:00* Test Item Value Reference Range Interpretation Comme nts POCT PREG (test code = 1605) Negative On board controls acceptable with C Line (test code = 3574) Yes POCT PREG LOT # (test code = 3575) [id number] POCT PREG TEST DATE ( test code = 3576) 04-11-2024 Lab Interpretation (test cod e = 17551-5) [facility] [id number] 16:24:00* Test Item Value Reference Range Interpretation Comme nts POCT PREG (test code = 1605) Negative On board controls acceptable with C Line (test code = 3574) Yes POCT PREG LOT # (test code = 3575) [id number] POCT PREG TEST DATE ( test code = 3576) 04-11-2024 Lab Interpretation (test cod e = 22380-4) [facility] [id number] 16:24:00* Test Item Value Reference Range Interpretation Comme nts POCT PREG (test code = 1605) Negative On board controls acceptable with C Line (test code = 3574) Yes POCT PREG LOT # (test code = 3575) [id number] POCT PREG TEST DATE ( test code = 3576) 04-11-2024 Lab Interpretation (test cod e = 25928-4) [facility] [id number] 16:24:00* Test Item Value Reference Range Interpretation Comme nts POCT PREG (test code = 1605) Negative On board controls acceptable with C Line (test code = 3574) Yes POCT PREG LOT # (test code = 3575) [id number] POCT PREG TEST DATE ( test code = 3576) 04-11-2024 Lab Interpretation (test cod e = 16082-8) [facility] [id number] 16:24:00* Test Item Value Reference Range Interpretation Comme nts POCT PREG (test code = 1605) Negative On board controls acceptable with C Line (test code = 3574) Yes POCT PREG LOT # (test code = 3575) [id number] POCT PREG TEST DATE ( test code = 3576) 04-11-2024 Lab Interpretation (test cod e = 65178-1) [facility] [id number] 16:24:00* Test Item Value Reference Range Interpretation Comme nts POCT PREG (test code = 1605) Negative On board controls acceptable with C Line (test code = 3574) Yes POCT PREG LOT # (test code = 3575) [id number] POCT PREG TEST DATE ( test code = 3576) 04-11-2024 Lab Interpretation (test cod e = 72308-5) [facility] [id number] 16:24:00* Test Item Value Reference Range Interpretation Comme nts POCT PREG (test code = 1605) Negative On board controls acceptable with C Line (test code = 3574) Yes POCT PREG LOT # (test code = 3575) [id number] POCT PREG TEST DATE ( test code = 3576) 04-11-2024 Lab Interpretation (test cod e = 50497-7) [facility] [id number] 16:24:00* Test Item Value Reference Range Interpretation Comme nts POCT PREG (test code = 1605) Negative On board controls acceptable with C Line (test code = 3574) Yes POCT PREG LOT # (test code = 3575) [id number] POCT PREG TEST DATE ( test code = 3576) 04-11-2024 Lab Interpretation (test cod e = 48871-4) [facility] [id number] 16:24:00* Test Item Value Reference Range Interpretation Comme nts POCT PREG (test code = 1605) Negative On board controls acceptable with C Line (test code = 3574) Yes POCT PREG LOT # (test code = 3572) [id number] POCT PREG TEST DATE ( test code = 3576) 04-11-2024 Lab Interpretation (test cod e = 22597-6) Normal [facility] ONLY CELIAC SCREEN [id number] 19:09:14 * Test Item Value Reference Range Interpretation Comme nts Tissue Transglutaminase (tTG) Ab, IgA Interpretation (test code = 75741-7) Negative Negative Deamidated Gliadin Peptide (DGP) Ab, IgA Interpretation (test code = 75440-1) Negative Negative Tissue Transglutaminase (tTG) Ab, IgA (test code = 2558157151) <=7.0 Deamidated Gliadin Peptide (DGP) Ab, IgA (test code = 3153889494) 0.4 U/mL <=7.0 ZAINAB (test code = ZAINAB) < 7 U/mL ? Negative7 - 10 U/mL ?Equivocal> 10 U/mL ?Positive In case of equivocal results, we recommend to retest the patient after 8 -12 weeks. Lab Interpretation (test code = 82717-1) Normal [facility] ONLY CELIAC SCREEN [id number] 19:09:14 * Test Item Value Reference Range Interpretation Comme nts Tissue Transglutaminase (tTG) Ab, IgA Interpretation (test code = 99119-3) Negative Negative Deamidated Gliadin Peptide (DGP) Ab, IgA Interpretation (test code = 03863-8) Negative Negative Tissue Transglutaminase (tTG) Ab, IgA (test code = 5830544713) <=7.0 Deamidated Gliadin Peptide (DGP) Ab, IgA (test code = 3800386319) 0.4 U/mL <=7.0 ZAINAB (test code = ZAINAB) < 7 U/mL ? Negative7 - 10 U/mL ?Equivocal> 10 U/mL ?Positive In case of equivocal results, we recommend to retest the patient after 8 -12 weeks. Lab Interpretation (test code = 55112-2) Normal [facility] ONLY CELIAC SCREEN [id number] 19:09:14 * Test Item Value Reference Range Interpretation Comme nts Tissue Transglutaminase (tTG) Ab, IgA Interpretation (test code = 30964-1) Negative Negative Deamidated Gliadin Peptide (DGP) Ab, IgA Interpretation (test code = 57838-4) Negative Negative Tissue Transglutaminase (tTG) Ab, IgA (test code = 8538577904) <=7.0 Deamidated Gliadin Peptide (DGP) Ab, IgA (test code = 7782157295) 0.4 U/mL <=7.0 ZAINAB (test code = ZAINAB) < 7 U/mL ? Negative7 - 10 U/mL ?Equivocal> 10 U/mL ?Positive In case of equivocal results, we recommend to retest the patient after 8 -12 weeks. Lab Interpretation (test code = 33736-9) Normal [facility] ONLY CELIAC SCREEN [id number] 19:09:14 * Test Item Value Reference Range Interpretation Comme nts Tissue Transglutaminase (tTG) Ab, IgA Interpretation (test code = 08321-4) Negative Negative Deamidated Gliadin Peptide (DGP) Ab, IgA Interpretation (test code = 28622-9) Negative Negative Tissue Transglutaminase (tTG) Ab, IgA (test code = 1988078734) <=7.0 Deamidated Gliadin Peptide (DGP) Ab, IgA (test code = 0252339504) 0.4 U/mL <=7.0 ZAINAB (test code = ZAINAB) < 7 U/mL ? Negative7 - 10 U/mL ?Equivocal> 10 U/mL ?Positive In case of equivocal results, we recommend to retest the patient after 8 -12 weeks. Lab Interpretation (test code = 00142-0) Normal [facility] ONLY CELIAC SCREEN [id number] 19:09:14 * Test Item Value Reference Range Interpretation Comme nts Tissue Transglutaminase (tTG) Ab, IgA Interpretation (test code = 68120-4) Negative Negative Deamidated Gliadin Peptide (DGP) Ab, IgA Interpretation (test code = 31584-7) Negative Negative Tissue Transglutaminase (tTG) Ab, IgA (test code = 2288100912) <=7.0 Deamidated Gliadin Peptide (DGP) Ab, IgA (test code = 4614372539) 0.4 U/mL <=7.0 ZAINAB (test code = ZAINAB) < 7 U/mL ? Negative7 - 10 U/mL ?Equivocal> 10 U/mL ?Positive In case of equivocal results, we recommend to retest the patient after 8 -12 weeks. Lab Interpretation (test code = 20521-4) Normal [facility] ONLY CELIAC SCREEN [id number] 19:09:14 * Test Item Value Reference Range Interpretation Comme nts Tissue Transglutaminase (tTG) Ab, IgA Interpretation (test code = 55374-4) Negative Negative Deamidated Gliadin Peptide (DGP) Ab, IgA Interpretation (test code = 84206-7) Negative Negative Tissue Transglutaminase (tTG) Ab, IgA (test code = 0989145945) <=7.0 Deamidated Gliadin Peptide (DGP) Ab, IgA (test code = 3281999555) 0.4 U/mL <=7.0 ZAINAB (test code = ZAINAB) < 7 U/mL ? Negative7 - 10 U/mL ?Equivocal> 10 U/mL ?Positive In case of equivocal results, we recommend to retest the patient after 8 -12 weeks. Lab Interpretation (test code = 09575-9) Normal [facility] ONLY CELIAC SCREEN [id number] 19:09:14 * Test Item Value Reference Range Interpretation Comme nts Tissue Transglutaminase (tTG) Ab, IgA Interpretation (test code = 73515-2) Negative Negative Deamidated Gliadin Peptide (DGP) Ab, IgA Interpretation (test code = 74341-8) Negative Negative Tissue Transglutaminase (tTG) Ab, IgA (test code = 3193476648) <=7.0 Deamidated Gliadin Peptide (DGP) Ab, IgA (test code = 7249574456) 0.4 U/mL <=7.0 ZAINAB (test code = ZAINAB) < 7 U/mL ? Negative7 - 10 U/mL ?Equivocal> 10 U/mL ?Positive In case of equivocal results, we recommend to retest the patient after 8 -12 weeks. Lab Interpretation (test code = 93082-7) Normal [facility] ONLY CELIAC SCREEN [id number] 19:09:14 * Test Item Value Reference Range Interpretation Comme nts Tissue Transglutaminase (tTG) Ab, IgA Interpretation (test code = 71484-3) Negative Negative Deamidated Gliadin Peptide (DGP) Ab, IgA Interpretation (test code = 50797-5) Negative Negative Tissue Transglutaminase (tTG) Ab, IgA (test code = 5922830783) <=7.0 Deamidated Gliadin Peptide (DGP) Ab, IgA (test code = 4106211982) 0.4 U/mL <=7.0 ZAINAB (test code = ZAINAB) < 7 U/mL ? Negative7 - 10 U/mL ?Equivocal> 10 U/mL ?Positive In case of equivocal results, we recommend to retest the patient after 8 -12 weeks. Lab Interpretation (test code = 14372-5) Normal [facility] ONLY CELIAC SCREEN [id number] 19:09:14 * Test Item Value Reference Range Interpretation Comme nts Tissue Transglutaminase (tTG) Ab, IgA Interpretation (test code = 94759-1) Negative Negative Deamidated Gliadin Peptide (DGP) Ab, IgA Interpretation (test code = 22716-5) Negative Negative Tissue Transglutaminase (tTG) Ab, IgA (test code = 3649013337) <=7.0 Deamidated Gliadin Peptide (DGP) Ab, IgA (test code = 1832508947) 0.4 U/mL <=7.0 ZAINAB (test code = ZAINAB) < 7 U/mL ? Negative7 - 10 U/mL ?Equivocal> 10 U/mL ?Positive In case of equivocal results, we recommend to retest the patient after 8 -12 weeks. Lab Interpretation (test code = 75511-4) Normal [facility] ONLY CELIAC SCREEN [id number] 19:09:14 * Test Item Value Reference Range Interpretation Comme nts Tissue Transglutaminase (tTG) Ab, IgA Interpretation (test code = 24587-1) Negative Negative Deamidated Gliadin Peptide (DGP) Ab, IgA Interpretation (test code = 58519-4) Negative Negative Tissue Transglutaminase (tTG) Ab, IgA (test code = 8474058653) <=7.0 Deamidated Gliadin Peptide (DGP) Ab, IgA (test code = 3757435858) 0.4 U/mL <=7.0 ZAINAB (test code = ZAINAB) < 7 U/mL ? Negative7 - 10 U/mL ?Equivocal> 10 U/mL ?Positive In case of equivocal results, we recommend to retest the patient after 8 -12 weeks. Lab Interpretation (test code = 19623-5) Normal [facility] ONLY CELIAC SCREEN [id number] 19:09:14 * Test Item Value Reference Range Interpretation Comme nts Tissue Transglutaminase (tTG) Ab, IgA Interpretation (test code = 81988-8) Negative Negative Deamidated Gliadin Peptide (DGP) Ab, IgA Interpretation (test code = 33443-2) Negative Negative Tissue Transglutaminase (tTG) Ab, IgA (test code = 8477580958) <=7.0 Deamidated Gliadin Peptide (DGP) Ab, IgA (test code = 7760130180) 0.4 U/mL <=7.0 ZAINAB (test code = ZAINAB) < 7 U/mL ? Negative7 - 10 U/mL ?Equivocal> 10 U/mL ?Positive In case of equivocal results, we recommend to retest the patient after 8 -12 weeks. Lab Interpretation (test code = 68284-8) Normal [facility] ONLY CELIAC SCREEN [id number] 19:09:14 * Test Item Value Reference Range Interpretation Comme nts Tissue Transglutaminase (tTG) Ab, IgA Interpretation (test code = 05025-5) Negative Negative Deamidated Gliadin Peptide (DGP) Ab, IgA Interpretation (test code = 12739-1) Negative Negative Tissue Transglutaminase (tTG) Ab, IgA (test code = 8729178248) <=7.0 Deamidated Gliadin Peptide (DGP) Ab, IgA (test code = 1042248383) 0.4 U/mL <=7.0 ZAINAB (test code = ZAINAB) < 7 U/mL ? Negative7 - 10 U/mL ?Equivocal> 10 U/mL ?Positive In case of equivocal results, we recommend to retest the patient after 8 -12 weeks. Lab Interpretation (test code = 44744-5) Normal [facility]2023-09-07 20:24:44* Test Item Value Reference Range Interpretation Comme nts Total IgA (test code = 7442057408) 78.3 U/mL 70-312 Lab Interpretation (test cod e = 41717-5) [facility]2023-09-07 20:24:44* Test Item Value Reference Range Interpretation Comme nts Total IgA (test code = 3256687480) 78.3 U/mL 70-312 Lab Interpretation (test cod e = 81900-4) [facility]2023-09-07 20:24:44* Test Item Value Reference Range Interpretation Comme nts Total IgA (test code = 7090853094) 78.3 U/mL 70-312 Lab Interpretation (test cod e = 36682-0) [facility]2023-09-07 20:24:44* Test Item Value Reference Range Interpretation Comme nts Total IgA (test code = 9758425801) 78.3 U/mL 70-312 Lab Interpretation (test cod e = 08384-9) [facility]2023-09-07 20:24:44* Test Item Value Reference Range Interpretation Comme nts Total IgA (test code = 9712431262) 78.3 U/mL 70-312 Lab Interpretation (test cod e = 77814-4) [facility]2023-09-07 20:24:44* Test Item Value Reference Range Interpretation Comme nts Total IgA (test code = 9055782006) 78.3 U/mL 70-312 Lab Interpretation (test cod e = 61304-0) [facility]2023-09-07 20:24:44* Test Item Value Reference Range Interpretation Comme nts Total IgA (test code = 6881055183) 78.3 U/mL 70-312 Lab Interpretation (test cod e = 56657-1) Normal [facility]2023-09-07 20:24:44* Test Item Value Reference Range Interpretation Comme nts Total IgA (test code = 2044726543) 78.3 U/mL 70-312 Lab Interpretation (test cod e = 69114-6) Normal [facility]2023-09-07 20:24:44* Test Item Value Reference Range Interpretation Comme nts Total IgA (test code = 2625179299) 78.3 U/mL 70-312 Lab Interpretation (test cod e = 29997-7) Normal [facility]2023-09-07 20:24:44* Test Item Value Reference Range Interpretation Comme nts Total IgA (test code = 4559252349) 78.3 U/mL 70-312 Lab Interpretation (test cod e = 42676-3) Normal [facility] [id number] 20:24:44* Test Item Value Reference Range Interpretation Comme nts Total IgA (test code = 7682459632) 78.3 U/mL 70-312 Lab Interpretation (test cod e = 96694-7) Normal [facility] [id number] 20:24:44* Test Item Value Reference Range Interpretation Comme nts Total IgA (test code = 1033028488) 78.3 U/mL 70-312 Lab Interpretation (test cod e = 63280-9) [facility] [id number] 17:30:19* Test Item Value Reference Range Interpretation Comme nts FERRITIN (test code = 9470386601) 4.8 ng/mL 6.0-137.0 L ZAINAB (test code = ZAINAB) Biotin has been reported to cause a negative bias, interpret results relative to patient's use of biotin. Lab Interpretation (test code = 59145-1) [facility] [id number] 17:30:19* Test Item Value Reference Range Interpretation Comme nts FERRITIN (test code = 0797743557) 4.8 ng/mL 6.0-137.0 L ZAINAB (test code = ZAINAB) Biotin has been reported to cause a negative bias, interpret results relative to patient's use of biotin. Lab Interpretation (test code = 22886-9) [facility] [id number] 17:30:19* Test Item Value Reference Range Interpretation Comme nts FERRITIN (test code = 9613857198) 4.8 ng/mL 6.0-137.0 L ZAINAB (test code = ZAINAB) Biotin has been reported to cause a negative bias, interpret results relative to patient's use of biotin. Lab Interpretation (test code = 27147-1) [facility] [id number] 17:30:19* Test Item Value Reference Range Interpretation Comme nts FERRITIN (test code = 8425763284) 4.8 ng/mL 6.0-137.0 L ZAINAB (test code = ZAINAB) Biotin has been reported to cause a negative bias, interpret results relative to patient's use of biotin. Lab Interpretation (test code = 27251-2) [facility] [id number] 17:30:19* Test Item Value Reference Range Interpretation Comme nts FERRITIN (test code = 7803974783) 4.8 ng/mL 6.0-137.0 L ZAINAB (test code = ZAINAB) Biotin has been reported to cause a negative bias, interpret results relative to patient's use of biotin. Lab Interpretation (test code = 41534-1) [facility] [id number] 17:30:19* Test Item Value Reference Range Interpretation Comme nts FERRITIN (test code = 5148255091) 4.8 ng/mL 6.0-137.0 L ZAINAB (test code = ZAINAB) Biotin has been reported to cause a negative bias, interpret results relative to patient's use of biotin. Lab Interpretation (test code = 18644-6) [facility] [id number] 17:30:19* Test Item Value Reference Range Interpretation Comme nts FERRITIN (test code = 9441394206) 4.8 ng/mL 6.0-137.0 L ZAINAB (test code = ZAINAB) Biotin has been reported to cause a negative bias, interpret results relative to patient's use of biotin. Lab Interpretation (test code = 25191-6) [facility] [id number] 17:30:19* Test Item Value Reference Range Interpretation Comme nts FERRITIN (test code = 6675206989) 4.8 ng/mL 6.0-137.0 L ZAINAB (test code = ZAINAB) Biotin has been reported to cause a negative bias, interpret results relative to patient's use of biotin. Lab Interpretation (test code = 67555-3) [facility] [id number] 17:30:19* Test Item Value Reference Range Interpretation Comme nts FERRITIN (test code = 1568303832) 4.8 ng/mL 6.0-137.0 L ZAINAB (test code = ZAINAB) Biotin has been reported to cause a negative bias, interpret results relative to patient's use of biotin. Lab Interpretation (test code = 32941-9) [facility] [id number] 17:30:19* Test Item Value Reference Range Interpretation Comme nts FERRITIN (test code = 4444084236) 4.8 ng/mL 6.0-137.0 L ZAINAB (test code = ZAINAB) Biotin has been reported to cause a negative bias, interpret results relative to patient's use of biotin. Lab Interpretation (test code = 71324-0) [facility] [id number] 17:30:19* Test Item Value Reference Range Interpretation Comme nts FERRITIN (test code = 0997653988) 4.8 ng/mL 6.0-137.0 L ZAINAB (test code = ZAINAB) Biotin has been reported to cause a negative bias, interpret results relative to patient's use of biotin. Lab Interpretation (test code = 44071-8) [facility] [id number] 17:30:19* Test Item Value Reference Range Interpretation Comme nts FERRITIN (test code = 0801649907) 4.8 ng/mL 6.0-137.0 L ZAINAB (test code = ZAINAB) Biotin has been reported to cause a negative bias, interpret results relative to patient's use of biotin. Lab Interpretation (test code = 54280-7) Abnormal [facility] [id number] 17:03:34* Test Item Value Reference Range Interpretation Comme nts IRON (test code = 2758221707) 34 ug/dL 50-160 L TIBC (test code = 2566105542) 515 ug/dL 250-410 H % FE SAT (test code = 9593481213) 7 % 20-50 L Lab Interpretation (test cod e = 08685-7) Abnormal [facility] [id number] 17:03:34* Test Item Value Reference Range Interpretation Comme nts IRON (test code = 1098782489) 34 ug/dL 50-160 L TIBC (test code = 6877043327) 515 ug/dL 250-410 H % FE SAT (test code = 7416497351) 7 % 20-50 L Lab Interpretation (test cod e = 08199-3) Abnormal [facility]2023-09-07 17:03:34* Test Item Value Reference Range Interpretation Comme nts IRON (test code = 0381756920) 34 ug/dL 50-160 L TIBC (test code = 4260082572) 515 ug/dL 250-410 H % FE SAT (test code = 8929880676) 7 % 20-50 L Lab Interpretation (test cod e = 23294-9) Abnormal [facility]2023-09-07 17:03:34* Test Item Value Reference Range Interpretation Comme nts IRON (test code = 9069399625) 34 ug/dL 50-160 L TIBC (test code = 6221376917) 515 ug/dL 250-410 H % FE SAT (test code = 3731561448) 7 % 20-50 L Lab Interpretation (test cod e = 25439-6) Abnormal [facility] [id number] 17:03:34* Test Item Value Reference Range Interpretation Comme nts IRON (test code = 4587670245) 34 ug/dL 50-160 L TIBC (test code = 5539584528) 515 ug/dL 250-410 H % FE SAT (test code = 8102851991) 7 % 20-50 L Lab Interpretation (test cod e = 82994-2) Abnormal [facility]2023-09-07 17:03:34* Test Item Value Reference Range Interpretation Comme nts IRON (test code = 7941262869) 34 ug/dL 50-160 L TIBC (test code = 3521141753) 515 ug/dL 250-410 H % FE SAT (test code = 0984240483) 7 % 20-50 L Lab Interpretation (test cod e = 21146-7) Abnormal [facility] [id number] 17:03:34* Test Item Value Reference Range Interpretation Comme nts IRON (test code = 1255815718) 34 ug/dL 50-160 L TIBC (test code = 7048293299) 515 ug/dL 250-410 H % FE SAT (test code = 4249679658) 7 % 20-50 L Lab Interpretation (test cod e = 23221-9) Abnormal [facility]2023-09-07 17:03:34* Test Item Value Reference Range Interpretation Comme nts IRON (test code = 0167837582) 34 ug/dL 50-160 L TIBC (test code = 8812936136) 515 ug/dL 250-410 H % FE SAT (test code = 4849645454) 7 % 20-50 L Lab Interpretation (test cod e = 90326-1) Abnormal [facility] [id number] 17:03:34* Test Item Value Reference Range Interpretation Comme nts IRON (test code = 8829278106) 34 ug/dL 50-160 L TIBC (test code = 3296740125) 515 ug/dL 250-410 H % FE SAT (test code = 9862691793) 7 % 20-50 L Lab Interpretation (test cod e = 05531-4) Abnormal [facility] [id number] 17:03:34* Test Item Value Reference Range Interpretation Comme nts IRON (test code = 4317787318) 34 ug/dL 50-160 L TIBC (test code = 5327932644) 515 ug/dL 250-410 H % FE SAT (test code = 4963598893) 7 % 20-50 L Lab Interpretation (test cod e = 83142-1) Abnormal [facility] [id number] 17:03:34* Test Item Value Reference Range Interpretation Comme nts IRON (test code = 9501914645) 34 ug/dL 50-160 L TIBC (test code = 4589436048) 515 ug/dL 250-410 H % FE SAT (test code = 8953890276) 7 % 20-50 L Lab Interpretation (test cod e = 65067-7) Abnormal [facility]2023-09-07 17:03:34* Test Item Value Reference Range Interpretation Comme nts IRON (test code = 7223324869) 34 ug/dL 50-160 L TIBC (test code = 9672333992) 515 ug/dL 250-410 H % FE SAT (test code = 6795778735) 7 % 20-50 L Lab Interpretation (test cod e = 89994-3) Abnormal [facility]2023-08-24 19:48:06* Test Item Value Reference Range Interpretation Comme nts [place] (test code = 7054174248) 0.5 mmol/L 0.6-1.2 L ZAINAB (test code = ZAINAB) Toxic Range: ? Greater than 1.2 mmol/L Lab Interpretation (test code = 49652-2) Abnormal [facility]2023-08-24 19:48:06* Test Item Value Reference Range Interpretation Comme nts [place] (test code = 9180582377) 0.5 mmol/L 0.6-1.2 L ZAINAB (test code = ZAINAB) Toxic Range: ? Greater than 1.2 mmol/L Lab Interpretation (test code = 56168-3) Abnormal [facility]2023-08-24 19:48:06* Test Item Value Reference Range Interpretation Comme nts [place] (test code = 0089082855) 0.5 mmol/L 0.6-1.2 L ZAINAB (test code = ZAINAB) Toxic Range: ? Greater than 1.2 mmol/L Lab Interpretation (test code = 76333-1) Abnormal [facility]2023-08-24 19:48:06* Test Item Value Reference Range Interpretation Comme nts [place] (test code = 6731304079) 0.5 mmol/L 0.6-1.2 L ZAINAB (test code = ZAINAB) Toxic Range: ? Greater than 1.2 mmol/L Lab Interpretation (test code = 95292-6) Abnormal [facility]2023-08-24 19:48:06* Test Item Value Reference Range Interpretation Comme nts [place] (test code = 7505850345) 0.5 mmol/L 0.6-1.2 L ZAINAB (test code = ZAINAB) Toxic Range: ? Greater than 1.2 mmol/L Lab Interpretation (test code = 37376-7) Abnormal [facility]2023-08-24 19:48:06* Test Item Value Reference Range Interpretation Comme nts [place] (test code = 0171213532) 0.5 mmol/L 0.6-1.2 L ZAINAB (test code = ZAINAB) Toxic Range: ? Greater than 1.2 mmol/L Lab Interpretation (test code = 92306-2) Abnormal [facility]2023-08-24 19:48:06* Test Item Value Reference Range Interpretation Comme nts [place] (test code = 4939196182) 0.5 mmol/L 0.6-1.2 L ZAINAB (test code = ZAINAB) Toxic Range: ? Greater than 1.2 mmol/L Lab Interpretation (test code = 24261-3) Abnormal [facility]2023-08-24 19:48:06* Test Item Value Reference Range Interpretation Comme nts [place] (test code = 2441876974) 0.5 mmol/L 0.6-1.2 L ZAINAB (test code = ZAINAB) Toxic Range: ? Greater than 1.2 mmol/L Lab Interpretation (test code = 05524-5) Abnormal [facility]2023-08-24 19:48:06* Test Item Value Reference Range Interpretation Comme nts [place] (test code = 6223880058) 0.5 mmol/L 0.6-1.2 L ZAINAB (test code = ZAINAB) Toxic Range: ? Greater than 1.2 mmol/L Lab Interpretation (test code = 17352-3) Abnormal [facility]2023-08-24 19:48:06* Test Item Value Reference Range Interpretation Comme nts [place] (test code = 4763224375) 0.5 mmol/L 0.6-1.2 L ZAINAB (test code = ZAINAB) Toxic Range: ? Greater than 1.2 mmol/L Lab Interpretation (test code = 73812-1) Abnormal [facility]2023-08-24 19:48:06* Test Item Value Reference Range Interpretation Comme nts [place] (test code = 1646316008) 0.5 mmol/L 0.6-1.2 L ZAINAB (test code = ZAINAB) Toxic Range: ? Greater than 1.2 mmol/L Lab Interpretation (test code = 33811-7) Abnormal [facility]2023-08-24 19:48:06* Test Item Value Reference Range Interpretation Comme nts [place] (test code = 5516811567) 0.5 mmol/L 0.6-1.2 L ZAINAB (test code = ZAINAB) Toxic Range: ? Greater than 1.2 mmol/L Lab Interpretation (test code = 13532-7) Abnormal [facility]2023-08-24 19:48:06* Test Item Value Reference Range Interpretation Comme nts [place] (test code = 0991170296) 0.5 mmol/L 0.6-1.2 L ZAINAB (test code = ZAINAB) Toxic Range: ? Greater than 1.2 mmol/L Lab Interpretation (test code = 56805-2) Abnormal [facility]2023-08-24 19:48:06* Test Item Value Reference Range Interpretation Comme nts [place] (test code = 6000955852) 0.5 mmol/L 0.6-1.2 L ZAINAB (test code = ZAINAB) Toxic Range: ? Greater than 1.2 mmol/L Lab Interpretation (test code = 51542-7) [facility] [id number] 17:24:34 * Test Item Value Reference Range Interpretation Comme nts TSH (test code = 8108922743) 1.07 See_Comment [Automated messa ge] The system which generated this result transmitted reference range: 0.45 - 4.70 mIU/L. The reference range was not used to interpret this result as normal/abnormal. Lab Interpretation (test code = 19512-2) [facility] [id number] 17:24:34 * Test Item Value Reference Range Interpretation Comme nts TSH (test code = 9745942254) 1.07 See_Comment [Automated messa ge] The system which generated this result transmitted reference range: 0.45 - 4.70 mIU/L. The reference range was not used to interpret this result as normal/abnormal. Lab Interpretation (test code = 91621-8) [facility] [id number] 17:24:34 * Test Item Value Reference Range Interpretation Comme nts TSH (test code = 3612304652) 1.07 See_Comment [Automated messa ge] The system which generated this result transmitted reference range: 0.45 - 4.70 mIU/L. The reference range was not used to interpret this result as normal/abnormal. Lab Interpretation (test code = 93502-1) [facility] [id number] 17:24:34 * Test Item Value Reference Range Interpretation Comme nts TSH (test code = 9746213933) 1.07 See_Comment [Automated messa ge] The system which generated this result transmitted reference range: 0.45 - 4.70 mIU/L. The reference range was not used to interpret this result as normal/abnormal. Lab Interpretation (test code = 51902-1) [facility] [id number] 17:24:34 * Test Item Value Reference Range Interpretation Comme nts TSH (test code = 2949018008) 1.07 See_Comment [Automated messa ge] The system which generated this result transmitted reference range: 0.45 - 4.70 mIU/L. The reference range was not used to interpret this result as normal/abnormal. Lab Interpretation (test code = 44005-3) [facility] [id number] 17:24:34 * Test Item Value Reference Range Interpretation Comme nts TSH (test code = 5307464959) 1.07 See_Comment [Automated messa ge] The system which generated this result transmitted reference range: 0.45 - 4.70 mIU/L. The reference range was not used to interpret this result as normal/abnormal. Lab Interpretation (test code = 86883-9) [facility] [id number] 17:24:34 * Test Item Value Reference Range Interpretation Comme nts TSH (test code = 3652834234) 1.07 See_Comment [Automated messa ge] The system which generated this result transmitted reference range: 0.45 - 4.70 mIU/L. The reference range was not used to interpret this result as normal/abnormal. Lab Interpretation (test code = 59974-4) [facility] [id number] 17:24:34 * Test Item Value Reference Range Interpretation Comme nts TSH (test code = 1402969033) 1.07 See_Comment [Automated messa ge] The system which generated this result transmitted reference range: 0.45 - 4.70 mIU/L. The reference range was not used to interpret this result as normal/abnormal. Lab Interpretation (test code = 27769-7) [facility] [id number] 17:24:34 * Test Item Value Reference Range Interpretation Comme nts TSH (test code = 2590331947) 1.07 See_Comment [Automated messa ge] The system which generated this result transmitted reference range: 0.45 - 4.70 mIU/L. The reference range was not used to interpret this result as normal/abnormal. Lab Interpretation (test code = 04462-1) [facility] [id number] 17:24:34 * Test Item Value Reference Range Interpretation Comme nts TSH (test code = 9552113362) 1.07 See_Comment [Automated messa ge] The system which generated this result transmitted reference range: 0.45 - 4.70 mIU/L. The reference range was not used to interpret this result as normal/abnormal. Lab Interpretation (test code = 52368-3) [facility] [id number] 17:24:34 * Test Item Value Reference Range Interpretation Comme nts TSH (test code = 3651637659) 1.07 See_Comment [Automated messa ge] The system which generated this result transmitted reference range: 0.45 - 4.70 mIU/L. The reference range was not used to interpret this result as normal/abnormal. Lab Interpretation (test code = 97431-7) [facility] [id number] 17:24:34 * Test Item Value Reference Range Interpretation Comme nts TSH (test code = 6644282028) 1.07 See_Comment [Automated messa ge] The system which generated this result transmitted reference range: 0.45 - 4.70 mIU/L. The reference range was not used to interpret this result as normal/abnormal. Lab Interpretation (test code = 70818-9) [facility] [id number] 17:24:34 * Test Item Value Reference Range Interpretation Comme nts TSH (test code = 9672984892) 1.07 See_Comment [Automated messa ge] The system which generated this result transmitted reference range: 0.45 - 4.70 mIU/L. The reference range was not used to interpret this result as normal/abnormal. Lab Interpretation (test code = 74281-7) [facility] [id number] 17:24:34 * Test Item Value Reference Range Interpretation Comme nts TSH (test code = 7351378604) 1.07 See_Comment [Automated messa ge] The system which generated this result transmitted reference range: 0.45 - 4.70 mIU/L. The reference range was not used to interpret this result as normal/abnormal. Lab Interpretation (test code = 25204-3) Normal [facility]. METABOLIC PANEL ([id number])2022-10-05 16:54:48* Test Item Value Reference Range Interpretation Comme nts NA (test code = 1975293846) 140 mmol/L 135-145 K (test code = 2760805630) 4.6 mmol/L 3.5-5.0 CL (test code = 3117339391) 106 mmol/L 98-108 CO2 TOTAL (test code = 2990957286) 28 mmol/L 23-31 AGAP (test code = 1937533656) 6 2-16 BUN (test code = 7431761430) 5 mg/dL 7-23 L GLUCOSE (test code = 6379266218) 90 mg/dL 70-110 CREATININE (test code = 7365762479) 0.54 mg/dL 0.50-1.04 TOTAL BILI (test code = 8511717185) 0.1 mg/dL 0.1-1.1 CALCIUM (test code = 1060070643) 9.6 mg/dL 8.6-10.6 T PROTEIN (test code = 4601021476) 6.2 g/dL 6.3-8.2 L ALBUMIN (test code = 2958036321) 4.0 g/dL 3.5-5.0 ALK PHOS (test code = 2429068889) 125 U/L 34-122 H ALTv (test code = 1742-6) 29 U/L 5-35 AST(SGOT) (test code = 7486543252) 24 U/L 13-40 eGFR (test code = 5347979422) 122.1 mL/min/1.73m2 ZAINAB (test code = ZAINAB) [...] imaging tests). Lab Interpretation (test code = 67186-7) [facility][id number][facility]TOTAL CHOLESTEROL, TRIGLYCERIDES, HDL)2022-10-05 16:54:48* Test Item Value Reference Range Interpretation Comme nts CHOL (test code = 7988990775) 183 mg/dL 120-200 HDL (test code = 3218593014) 40 mg/dL >=50 L HDLC RATIO (test code = 3872130897) 4.6 <=4.5 H TRIG (test code = 9639363781) 128 mg/dL 30-170 LDL CHOL (test code = 54660-1) 117 mg/dL <=160 VLDL (test code = 6867220207) 26 mg/dL 5-60 Lab Interpretation (test cod e = 18427-6) [facility]normal [facility]OLIC PAN[facility] (94354)2022-10-05 16:54:48* Test Item Value Reference Range Interpretation Comme nts NA (test code = 0939976913) 140 mmol/L 135-145 K (test code = 3377385371) 4.6 mmol/L 3.5-5.0 CL (test code = 9015192039) 106 mmol/L 98-108 CO2 TOTAL (test code = 4059070298) 28 mmol/L 23-31 AGAP (test code = 0053182537) 6 2-16 BUN (test code = 0536924822) 5 mg/dL 7-23 L GLUCOSE (test code = 0102883484) 90 mg/dL 70-110 CREATININE (test code = 5463832691) 0.54 mg/dL 0.50-1.04 TOTAL BILI (test code = 9037763132) 0.1 mg/dL 0.1-1.1 CALCIUM (test code = 5992537336) 9.6 mg/dL 8.6-10.6 T PROTEIN (test code = 6967432048) 6.2 g/dL 6.3-8.2 L ALBUMIN (test code = 3124870613) 4.0 g/dL 3.5-5.0 ALK PHOS (test code = 9368666346) 125 U/L 34-122 H ALTv (test code = 1742-6) 29 U/L 5-35 AST(SGOT) (test code = 7176856828) 24 U/L 13-40 eGFR (test code = 7390996162) 122.1 mL/min/1.73m2 ZAINAB (test code = ZAINAB) [...] imaging tests). Lab Interpretation (test code = 80697-8) Abnormal [facility] (70373)(TOTAL CHOLESTEROL, TRIGLYCERIDES, HDL)2022-10-05 16:54:48* Test Item Value Reference Range Interpretation Comme nts CHOL (test code = 1063413755) 183 mg/dL 120-200 HDL (test code = 1019458303) 40 mg/dL >=50 L HDLC RATIO (test code = 4380357582) 4.6 <=4.5 H TRIG (test code = 5906020281) 128 mg/dL 30-170 LDL CHOL (test code = 56583-3) 117 mg/dL <=160 VLDL (test code = 0774054423) 26 mg/dL 5-60 Lab Interpretation (test cod e = 42332-2) [facility]normal [facility]OLIC [facility] (86835)2022-10-05 16:54:48* Test Item Value Reference Range Interpretation Comme nts NA (test code = 6169603937) 140 mmol/L 135-145 K (test code = 6930246040) 4.6 mmol/L 3.5-5.0 CL (test code = 7063884755) 106 mmol/L 98-108 CO2 TOTAL (test code = 0225913271) 28 mmol/L 23-31 AGAP (test code = 0109087132) 6 2-16 BUN (test code = 3034204134) 5 mg/dL 7-23 L GLUCOSE (test code = 2263044641) 90 mg/dL 70-110 CREATININE (test code = 0143167369) 0.54 mg/dL 0.50-1.04 TOTAL BILI (test code = 3441951174) 0.1 mg/dL 0.1-1.1 CALCIUM (test code = 1295266450) 9.6 mg/dL 8.6-10.6 T PROTEIN (test code = 6885369465) 6.2 g/dL 6.3-8.2 L ALBUMIN (test code = 8524712438) 4.0 g/dL 3.5-5.0 ALK PHOS (test code = 2778979082) 125 U/L 34-122 H ALTv (test code = 1742-6) 29 U/L 5-35 AST(SGOT) (test code = 1048534321) 24 U/L 13-40 eGFR (test code = 4617638168) 122.1 mL/min/1.73m2 ZAINAB (test code = ZAINAB) [...] imaging tests). Lab Interpretation (test code = 86947-6) [facility]normal [facility] (99766)(TOTAL CHOLESTEROL, TRIGLYCERIDES, HDL)2022-10-05 16:54:48* Test Item Value Reference Range Interpretation Comme nts CHOL (test code = 2545813448) 183 mg/dL 120-200 HDL (test code = 1405743112) 40 mg/dL >=50 L HDLC RATIO (test code = 3270568978) 4.6 <=4.5 H TRIG (test code = 2962139810) 128 mg/dL 30-170 LDL CHOL (test code = 43232-5) 117 mg/dL <=160 VLDL (test code = 1322241213) 26 mg/dL 5-60 Lab Interpretation (test cod e = 80597-7) Abnormal [facility] (13888)(TOTAL CHOLESTEROL, TRIGLYCERIDES, HDL)2022-10-05 16:54:48* Test Item Value Reference Range Interpretation Comme nts CHOL (test code = 9586276852) 183 mg/dL 120-200 HDL (test code = 6206938952) 40 mg/dL >=50 L HDLC RATIO (test code = 7208079149) 4.6 <=4.5 H TRIG (test code = 6527766643) 128 mg/dL 30-170 LDL CHOL (test code = 37552-8) 117 mg/dL <=160 VLDL (test code = 7563655988) 26 mg/dL 5-60 Lab Interpretation (test cod e = 55986-2) Abnormal [facility] (76699)(TOTAL CHOLESTEROL, TRIGLYCERIDES, HDL)2022-10-05 16:54:48* Test Item Value Reference Range Interpretation Comme nts CHOL (test code = 7448868315) 183 mg/dL 120-200 HDL (test code = 1593178540) 40 mg/dL >=50 L HDLC RATIO (test code = 8329616062) 4.6 <=4.5 H TRIG (test code = 0949317828) 128 mg/dL 30-170 LDL CHOL (test code = 58175-3) 117 mg/dL <=160 VLDL (test code = 7319449280) 26 mg/dL 5-60 Lab Interpretation (test cod e = 01558-8) Abnormal [facility] (64195)(TOTAL CHOLESTEROL, TRIGLYCERIDES, HDL)2022-10-05 16:54:48* Test Item Value Reference Range Interpretation Comme nts CHOL (test code = 8005693557) 183 mg/dL 120-200 HDL (test code = 8015119474) 40 mg/dL >=50 L HDLC RATIO (test code = 4417669498) 4.6 <=4.5 H TRIG (test code = 3324619586) 128 mg/dL 30-170 LDL CHOL (test code = 15203-7) 117 mg/dL <=160 VLDL (test code = 3244044896) 26 mg/dL 5-60 Lab Interpretation (test cod e = 12733-7) Abnormal [facility] (08329)(TOTAL CHOLESTEROL, TRIGLYCERIDES, HDL)2022-10-05 16:54:48* Test Item Value Reference Range Interpretation Comme nts CHOL (test code = 2465140637) 183 mg/dL 120-200 HDL (test code = 9169508410) 40 mg/dL >=50 L HDLC RATIO (test code = 1007453219) 4.6 <=4.5 H TRIG (test code = 9615475133) 128 mg/dL 30-170 LDL CHOL (test code = 64852-5) 117 mg/dL <=160 VLDL (test code = 7722009566) 26 mg/dL 5-60 Lab Interpretation (test cod e = 59965-7) [facility]normal [facility] (51640)(TOTAL CHOLESTEROL, TRIGLYCERIDES, HDL)2022-10-05 16:54:48* Test Item Value Reference Range Interpretation Comme nts CHOL (test code = 7252390662) 183 mg/dL 120-200 HDL (test code = 8390554430) 40 mg/dL >=50 L HDLC RATIO (test code = 8884532615) 4.6 <=4.5 H TRIG (test code = 3134645273) 128 mg/dL 30-170 LDL CHOL (test code = 92659-6) 117 mg/dL <=160 VLDL (test code = 1737243270) 26 mg/dL 5-60 Lab Interpretation (test cod e = 39471-5) Abnormal [facility] (61888)(TOTAL CHOLESTEROL, TRIGLYCERIDES, HDL)2022-10-05 16:54:48* Test Item Value Reference Range Interpretation Comme nts CHOL (test code = 5999533829) 183 mg/dL 120-200 HDL (test code = 9314538569) 40 mg/dL >=50 L HDLC RATIO (test code = 4454764169) 4.6 <=4.5 H TRIG (test code = 0883663520) 128 mg/dL 30-170 LDL CHOL (test code = 58265-2) 117 mg/dL <=160 VLDL (test code = 6414031934) 26 mg/dL 5-60 Lab Interpretation (test cod e = 39773-4) Abnormal [facility] (11552)(TOTAL CHOLESTEROL, TRIGLYCERIDES, HDL)2022-10-05 16:54:48* Test Item Value Reference Range Interpretation Comme nts CHOL (test code = 1842722665) 183 mg/dL 120-200 HDL (test code = 4576021286) 40 mg/dL >=50 L HDLC RATIO (test code = 7529929842) 4.6 <=4.5 H TRIG (test code = 6137609962) 128 mg/dL 30-170 LDL CHOL (test code = 44780-8) 117 mg/dL <=160 VLDL (test code = 0465208822) 26 mg/dL 5-60 Lab Interpretation (test cod e = 15070-5) Abnormal [facility] (10201)(TOTAL CHOLESTEROL, TRIGLYCERIDES, HDL)2022-10-05 16:54:48* Test Item Value Reference Range Interpretation Comme nts CHOL (test code = 4594993722) 183 mg/dL 120-200 HDL (test code = 9159319974) 40 mg/dL >=50 L HDLC RATIO (test code = 8992229398) 4.6 <=4.5 H TRIG (test code = 3183265363) 128 mg/dL 30-170 LDL CHOL (test code = 98392-1) 117 mg/dL <=160 VLDL (test code = 6036270586) 26 mg/dL 5-60 Lab Interpretation (test cod e = 48816-6) Abnormal [facility] (10334)(TOTAL CHOLESTEROL, TRIGLYCERIDES, HDL)2022-10-05 16:54:48* Test Item Value Reference Range Interpretation Comme nts CHOL (test code = 7792182999) 183 mg/dL 120-200 HDL (test code = 3867855701) 40 mg/dL >=50 L HDLC RATIO (test code = 8306857854) 4.6 <=4.5 H TRIG (test code = 3702530466) 128 mg/dL 30-170 LDL CHOL (test code = 40561-8) 117 mg/dL <=160 VLDL (test code = 0398284960) 26 mg/dL 5-60 Lab Interpretation (test cod e = 38035-0) Abnormal [facility] (08293)(TOTAL CHOLESTEROL, TRIGLYCERIDES, HDL)2022-10-05 16:54:48* Test Item Value Reference Range Interpretation Comme nts CHOL (test code = 0185720648) 183 mg/dL 120-200 HDL (test code = 2282022460) 40 mg/dL >=50 L HDLC RATIO (test code = 3118121370) 4.6 <=4.5 H TRIG (test code = 4064746082) 128 mg/dL 30-170 LDL CHOL (test code = 58838-0) 117 mg/dL <=160 VLDL (test code = 9646395310) 26 mg/dL 5-60 Lab Interpretation (test cod e = 24355-3) [facility]normal [facility] (28930)(TOTAL CHOLESTEROL, TRIGLYCERIDES, HDL)2022-10-05 16:54:48* Test Item Value Reference Range Interpretation Comme nts CHOL (test code = 1592667362) 183 mg/dL 120-200 HDL (test code = 8673289113) 40 mg/dL >=50 L HDLC RATIO (test code = 3002052396) 4.6 <=4.5 H TRIG (test code = 7660223671) 128 mg/dL 30-170 LDL CHOL (test code = 54700-6) 117 mg/dL <=160 VLDL (test code = 6401886845) 26 mg/dL 5-60 Lab Interpretation (test cod e = 05470-0) Abnormal [facility] (A1C)2022-10-05 15:51:11* Test Item Value Reference Range Interpretation Comme nts HGB A1C (test code = 4548-4) 5.1 % 4.0-5.7 ZAINAB (test code = ZAINAB) Reference RangesNormal: <5.7%Prediabetes: 5.7 - 6.4%Diabetes: > 6.5% Lab Interpretation (test code = 87364-6) Normal [facility] (A1C)2022-10-05 15:51:11* Test Item Value Reference Range Interpretation Comme nts HGB A1C (test code = 4548-4) 5.1 % 4.0-5.7 ZAINAB (test code = ZAINAB) Reference RangesNormal: <5.7%Prediabetes: 5.7 - 6.4%Diabetes: > 6.5% Lab Interpretation (test code = 39000-2) Normal [facility] (A1C)2022-10-05 15:51:11* Test Item Value Reference Range Interpretation Comme nts HGB A1C (test code = 4548-4) 5.1 % 4.0-5.7 ZAINAB (test code = ZAINAB) Reference RangesNormal: <5.7%Prediabetes: 5.7 - 6.4%Diabetes: > 6.5% Lab Interpretation (test code = 87517-2) Normal [facility]A1C)2022-10-05 15:51:11* Test Item Value Reference Range Interpretation Comme nts HGB A1C (test code = 4548-4) 5.1 % 4.0-5.7 ZAINAB (test code = ZAINAB) Reference RangesNormal: <5.7%Prediabetes: 5.7 - 6.4%Diabetes: > 6.5% Lab Interpretation (test code = 51025-9) [facility] 15:51:11* Test Item Value Reference Range Interpretation Comme nts HGB A1C (test code = 4548-4) 5.1 % 4.0-5.7 ZAINAB (test code = ZAINAB) Reference RangesNormal: <5.7%Prediabetes: 5.7 - 6.4%Diabetes: > 6.5% Lab Interpretation (test code = 60810-0) [facility]-05 15:51:11* Test Item Value Reference Range Interpretation Comme nts HGB A1C (test code = 4548-4) 5.1 % 4.0-5.7 ZAINAB (test code = ZAINAB) Reference RangesNormal: <5.7%Prediabetes: 5.7 - 6.4%Diabetes: > 6.5% Lab Interpretation (test code = 15737-7) [facility]-05 15:51:11* Test Item Value Reference Range Interpretation Comme nts HGB A1C (test code = 4548-4) 5.1 % 4.0-5.7 ZAINAB (test code = ZAINAB) Reference RangesNormal: <5.7%Prediabetes: 5.7 - 6.4%Diabetes: > 6.5% Lab Interpretation (test code = 38210-3) [facility]05 15:51:11* Test Item Value Reference Range Interpretation Comme nts HGB A1C (test code = 4548-4) 5.1 % 4.0-5.7 ZAINAB (test code = ZAINAB) Reference RangesNormal: <5.7%Prediabetes: 5.7 - 6.4%Diabetes: > 6.5% Lab Interpretation (test code = 91075-3) [facility]05 15:51:11* Test Item Value Reference Range Interpretation Comme nts HGB A1C (test code = 4548-4) 5.1 % 4.0-5.7 ZAINAB (test code = ZAINAB) Reference RangesNormal: <5.7%Prediabetes: 5.7 - 6.4%Diabetes: > 6.5% Lab Interpretation (test code = 67976-3) [facility]05 15:51:11* Test Item Value Reference Range Interpretation Comme nts HGB A1C (test code = 4548-4) 5.1 % 4.0-5.7 ZAINAB (test code = ZAINAB) Reference RangesNormal: <5.7%Prediabetes: 5.7 - 6.4%Diabetes: > 6.5% Lab Interpretation (test code = 17612-2) [facility]05 15:51:11* Test Item Value Reference Range Interpretation Comme nts HGB A1C (test code = 4548-4) 5.1 % 4.0-5.7 ZAINAB (test code = ZAINAB) Reference RangesNormal: <5.7%Prediabetes: 5.7 - 6.4%Diabetes: > 6.5% Lab Interpretation (test code = 85819-5) [facility]-05 15:51:11* Test Item Value Reference Range Interpretation Comme nts HGB A1C (test code = 4548-4) 5.1 % 4.0-5.7 ZAINAB (test code = ZAINAB) Reference RangesNormal: <5.7%Prediabetes: 5.7 - 6.4%Diabetes: > 6.5% Lab Interpretation (test code = 33080-0) [facility]05 15:51:11* Test Item Value Reference Range Interpretation Comme nts HGB A1C (test code = 4548-4) 5.1 % 4.0-5.7 ZAINAB (test code = ZAINAB) Reference RangesNormal: <5.7%Prediabetes: 5.7 - 6.4%Diabetes: > 6.5% Lab Interpretation (test code = 64540-3) [facility]-05 15:51:11* Test Item Value Reference Range Interpretation Comme nts HGB A1C (test code = 4548-4) 5.1 % 4.0-5.7 ZAINAB (test code = ZAINAB) Reference RangesNormal: <5.7%Prediabetes: 5.7 - 6.4%Diabetes: > 6.5% Lab Interpretation (test code = 92427-7) Normal [facility] WITH [id number] 15:20:32* Test Item Value Reference Range Interpretation [...] g/dL 31.6-35.1 L RDW-SD (test code = 33853-8) 47.8 fL 39.0-49.9 RDW-CV (test code = 788-0) 18.0 % 12.0-15.5 H PLT (test code = 777-3) 296 See_Comment [Automated messa ge] The system which generated this result transmitted reference range: 166 - 358 10*3/?L. The reference range was not used to interpret this result as normal/abnormal. MPV (test code = 74887-3) 10.7 fL 9.5-12.9 NRBC/100 WBC (test code = 2754446969) 0.0 See_Comment [Automated AIRTAME ssage] The system which generated this result transmitted reference range: 0.0 - 10.0 /100 WBCs. The reference range was not used to interpret this result as normal/abnormal. NRBC x10^3 (test code = 1737618733) See_Comment [Automated messa ge] The system which generated this result transmitted reference range: 10*3/?L. The reference range was not used to interpret this result as normal/abnormal. GRAN MAT (NEUT) % (test code = 770-8) 70.0 % IMM GRAN % (test code = 8001428929) 0.40 % LYMPH % (test code = 736-9) 18.7 % MONO % (test code = 5905-5) 5.7 % EOS % (test code = 713-8) 4.5 % BASO % (test code = 706-2) 0.7 % GRAN MAT x10^3(ANC) (test code = 0134153030) 4.66 10*3/uL 1.88-7.09 IMM GRAN x10^3 (test code = 2887550316) 0.03 10*3/uL 0.00-0.06 LYMPH x10^3 (test code = 731-0) 1.25 10*3/uL 1.32-3.29 L MONO x10^3 (test code = 742-7) 0.38 10*3/uL 0.33-0.92 EOS x10^3 (test code = 711-2) 0.30 10*3/uL 0.03-0.39 BASO x10^3 (test code = 704-7) 0.05 10*3/uL 0.01-0.07 Lab Interpretation (test code = 74293-8) Abnormal [facility] WITH [id number] 15:20:32* Test Item Value Reference Range Interpretation [...] g/dL 31.6-35.1 L RDW-SD (test code = 22913-1) 47.8 fL 39.0-49.9 RDW-CV (test code = 788-0) 18.0 % 12.0-15.5 H PLT (test code = 777-3) 296 See_Comment [Automated messa ge] The system which generated this result transmitted reference range: 166 - 358 10*3/?L. The reference range was not used to interpret this result as normal/abnormal. MPV (test code = 40744-8) 10.7 fL 9.5-12.9 NRBC/100 WBC (test code = 5190270325) 0.0 See_Comment [Automated AIRTAME ssage] The system which generated this result transmitted reference range: 0.0 - 10.0 /100 WBCs. The reference range was not used to interpret this result as normal/abnormal. NRBC x10^3 (test code = 0649378608) See_Comment [Automated Userstorylaba ge] The system which generated this result transmitted reference range: 10*3/?L. The reference range was not used to interpret this result as normal/abnormal. GRAN MAT (NEUT) % (test code = 770-8) 70.0 % IMM GRAN % (test code = 0855748858) 0.40 % LYMPH % (test code = 736-9) 18.7 % MONO % (test code = 5905-5) 5.7 % EOS % (test code = 713-8) 4.5 % BASO % (test code = 706-2) 0.7 % GRAN MAT x10^3(ANC) (test code = 2295887582) 4.66 10*3/uL 1.88-7.09 IMM GRAN x10^3 (test code = 6529657960) 0.03 10*3/uL 0.00-0.06 LYMPH x10^3 (test code = 731-0) 1.25 10*3/uL 1.32-3.29 L MONO x10^3 (test code = 742-7) 0.38 10*3/uL 0.33-0.92 EOS x10^3 (test code = 711-2) 0.30 10*3/uL 0.03-0.39 BASO x10^3 (test code = 704-7) 0.05 10*3/uL 0.01-0.07 Lab Interpretation (test code = 69123-0) Abnormal [facility] WITH [id number] 15:20:32* Test Item Value Reference Range Interpretation [...] g/dL 31.6-35.1 L RDW-SD (test code = 06642-6) 47.8 fL 39.0-49.9 RDW-CV (test code = 788-0) 18.0 % 12.0-15.5 H PLT (test code = 777-3) 296 See_Comment [Automated messa ge] The system which generated this result transmitted reference range: 166 - 358 10*3/?L. The reference range was not used to interpret this result as normal/abnormal. MPV (test code = 69443-2) 10.7 fL 9.5-12.9 NRBC/100 WBC (test code = [id number]) 0.0 See_Comment [Automated me ssage] The system which generated this result transmitted reference range: 0.0 - 10.0 /100 WBCs. The reference range was not used to interpret this result as normal/abnormal. NRBC x10^3 (test code = [id number]) See_Comment [Automated messa ge] The system which generated this result transmitted reference range: 10*3/?L. The reference range was not used to interpret this result as normal/abnormal. GRAN MAT (NEUT) % (test code = 770-8) 70.0 % IMM GRAN % (test code = [id number]) 0.40 % LYMPH % (test code = 736-9) 18.7 % MONO % (test code = 5905-5) 5.7 % EOS % (test code = 713-8) 4.5 % BASO % (test code = 706-2) 0.7 % GRAN MAT x10^3(ANC) (test code = 2592626220) 4.66 10*3/uL 1.88-7.09 IMM GRAN x10^3 (test code = 6636644317) 0.03 10*3/uL 0.00-0.06 LYMPH x10^3 (test code = 731-0) 1.25 10*3/uL 1.32-3.29 L MONO x10^3 (test code = 742-7) 0.38 10*3/uL 0.33-0.92 EOS x10^3 (test code = 711-2) 0.30 10*3/uL 0.03-0.39 BASO x10^3 (test code = 704-7) 0.05 10*3/uL 0.01-0.07 Lab Interpretation (test code = 82762-0) Abnormal [facility]2023-06-14 17:27:33* Test Item Value Reference Range Interpretation Comme nts Leedey (test code = 1850023135) 0.3 mmol/L 0.6-1.2 L ZAINAB (test code = ZAINAB) Toxic Range: ? Greater than 1.2 mmol/L Lab Interpretation (test code = 52021-8) Abnormal [facility]2023-06-14 17:27:33* Test Item Value Reference Range Interpretation Comme nts Leedey (test code = 5474427458) 0.3 mmol/L 0.6-1.2 L ZAINAB (test code = ZAINAB) Toxic Range: ? Greater than 1.2 mmol/L Lab Interpretation (test code = 44927-8) Abnormal [facility]2023-06-14 17:27:33* Test Item Value Reference Range Interpretation Comme nts Leedey (test code = 7880700890) 0.3 mmol/L 0.6-1.2 L ZAINAB (test code = ZAINAB) Toxic Range: ? Greater than 1.2 mmol/L Lab Interpretation (test code = 42419-7) Abnormal [facility]2023-06-14 17:27:33* Test Item Value Reference Range Interpretation Comme nts [place]ey (test code = 6952226290) 0.3 mmol/L 0.6-1.2 L ZAINAB (test code = ZAINAB) Toxic Range: ? Greater than 1.2 mmol/L Lab Interpretation (test code = 45846-1) Abnormal [facility]2023-06-14 17:27:33* Test Item Value Reference Range Interpretation Comme nts Leedey (test code = 8866173254) 0.3 mmol/L 0.6-1.2 L ZAINAB (test code = ZAINAB) Toxic Range: ? Greater than 1.2 mmol/L Lab Interpretation (test code = 14808-1) Abnormal [facility]2023-06-14 17:27:33* Test Item Value Reference Range Interpretation Comme nts Leedey (test code = 6218101727) 0.3 mmol/L 0.6-1.2 L ZAINAB (test code = ZAINAB) Toxic Range: ? Greater than 1.2 mmol/L Lab Interpretation (test code = 77889-3) Abnormal [facility]2023-06-14 17:27:33* Test Item Value Reference Range Interpretation Comme nts Leedey (test code = 7473869860) 0.3 mmol/L 0.6-1.2 L ZAINAB (test code = ZAINAB) Toxic Range: ? Greater than 1.2 mmol/L Lab Interpretation (test code = 48154-8) Abnormal [facility]2023-06-14 17:27:33* Test Item Value Reference Range Interpretation Comme nts Le[place]ey (test code = 1453996536) 0.3 mmol/L 0.6-1.2 L ZAINAB (test code = ZAINAB) Toxic Range: ? Greater than 1.2 mmol/L Lab Interpretation (test code = 53944-0) Abnormal [facility]2023-06-14 17:27:33* Test Item Value Reference Range Interpretation Comme nts Leedey (test code = 8380324785) 0.3 mmol/L 0.6-1.2 L ZAINAB (test code = ZAINAB) Toxic Range: ? Greater than 1.2 mmol/L Lab Interpretation (test code = 99914-8) Abnormal [facility]2023-06-14 17:27:33* Test Item Value Reference Range Interpretation Comme nts Le[place]ey (test code = 5125370400) 0.3 mmol/L 0.6-1.2 L ZAINAB (test code = ZAINAB) Toxic Range: ? Greater than 1.2 mmol/L Lab Interpretation (test code = 16578-7) Abnormal [facility]2023-06-14 17:27:33* Test Item Value Reference Range Interpretation Comme nts Leedey (test code = 5120640866) 0.3 mmol/L 0.6-1.2 L ZAINAB (test code = ZAINAB) Toxic Range: ? Greater than 1.2 mmol/L Lab Interpretation (test code = 56321-7) Abnormal [facility]2023-06-14 17:27:33* Test Item Value Reference Range Interpretation Comme nts Leedey (test code = 1575243413) 0.3 mmol/L 0.6-1.2 L ZAINAB (test code = ZAINAB) Toxic Range: ? Greater than 1.2 mmol/L Lab Interpretation (test code = 05217-8) [facility] WITH [id number] 06:12:05* Test Item Value Reference Range Interpretation [...] = 1065) 0.0 /100 WBC'S See_Comment [Automated message] The system which generated this result [...] 0.00-0.10 ABS NUCLEATED RBCS (test code = 41166) 0.00 K/UL 0.00-0.11 RETICULOCYTE WITH [id number] 06:12:05* Test Item Value Reference Range Interpretation Comme nts RETICULOCYTE COUNT (test code = 1018) 2.50 % 0.80-2.40 H ABSOLUTE RETICULOCYTE (test code = 44251) 103.3 K/UL 32.0-105.0 [facility] has important pathology staff changes effective 04/12/2022. New pathology staff will provide uninterrupted, excellent patient care and clinical consultation. See URL: [email or web address] Do Now [email or web address]. UNLESS OTHERWISE INDICATED, ALL TESTING PERFORMED AT [facility] [address] [place] [address] [employer]NAG[employer] SPECIALIST: CAHRLA HERNANDEZ M.D. CLIA NUMBER [id number] [facility] [place]. [id number] CBC W/AUTO [id number] 00:00:00* Test Item Value Reference Range Interpretation Comme nts WBC (test code = 1001) 7.4 K/UL RBC (test code = 1002) 4.13 M/UL HEMOGLOBIN (test code = 1003) 9.2 G/DL HEMATOCRIT (test code = 1004) 29.3 % MCV (test code = 1005) 70.9 fL MCH (test code = 1006) 22.3 PG MCHC (test code = 1007) 31.4 G/DL RDW (test code = 1038) 20.3 % NEUTROPHILS (test code = 1008) 65.4 % LYMPHOCYTES (test code = 1010) 22.0 % MONOCYTES (test code = 1011) 4.9 % EOSINOPHILS (test code = 1012) 6.6 % BASOPHILS (test code = 1013) 0.7 % IMMATURE GRANULOCYTES (test code = 1036) 0.4 % NUCLEATED RBCS (test code = 1065) 0.0 /100WBC'S PLATELET COUNT (test code = 1015) 304 K/UL ABSOLUTE NEUTROPHILS (test c ode = 1066) 4.86 K/UL ABSOLUTE LYMPHOCYTES (test c ode = 1067) 1.63 K/UL ABSOLUTE MONOCYTES (test cod e = 1068) 0.36 K/UL ABSOLUTE EOSINOPHILS (test c ode = 1040) 0.49 K/UL ABSOLUTE BASOPHILS (test cod e = 1069) 0.05 K/UL ABS IMMATURE GRANULOCYTES (t est code = 1020) 0.03 K/UL ABS NUCLEATED RBCS (test cod e = 90821) 0.00 K/UL Robert CaliRETICULOCYTE WITH [id number] 00:00:00* Test Item Value Reference Range Interpretation Comme nts RETICULOCYTE COUNT (test cod e = 1018) 2.50 % ABSOLUTE RETICULOCYTE (test code = 11158) 103.3 K/UL Robert Bailon NON-REFLEX TO [id number] 05:55:49* Test Item Value Reference Range Interpretation Comme nts ANTI-NUCLEAR ANTIBODIES (test code = 3506) NEGATIVE NEGATIVE METHODOLOGY IS I NDIRECT IMMUNOFLUORESCENT ASSAY (IFA) WITH HUMAN EPITHELIAL (HEP-2) CELL LINE SUBSTRATE. YAZMIN NON-REFLEX TO [id number] 00:00:00* Test Item Value Reference Range Interpretation Comme nts ANTI-NUCLEAR ANTIBODIES (aram t code = 3506) NEGATIVE Robert CaliFOLATE, [id number] 12:42:51* Test Item Value Reference Range Interpretation [...] . . . NG/ML >1504 TSH, THIRD [id number] 11:05:54* Test Item Value Reference Range Interpretation Comme nts TSH, THIRD GENERATION (test code = 2821) 1.310 UIU/ML 0.400-4.100 VITAMIN [id number] 11:05:54* Test Item Value Reference Range Interpretation Comme nts VITAMIN B-12 (test code = 2840) 436 PG/ML 200-950 VITAMIN D, 25 [id number] 11:03:45* Test Item Value Reference Range Interpretation [...] . . . . . NG/ML 30-100 [facility] has important pathology staff changes effective 04/12/2022. New pathology staff will provide uninterrupted, excellent patient care and clinical consultation. See URL: [email or web address]. UNLESS OTHERWISE INDICATED, ALL TESTING PERFORMED AT [facility] [address] [place] [address] [employer]NAG[employer] SPECIALIST: CHARLA HERNANDEZ M.D. CLIA NUMBER [id number] [facility] [place]. [id number] URIC [id number] 05:28:57* Test Item Value Reference Range Interpretation Comme nts URIC ACID (test code = 2233) 6.7 MG/DL 2.7-6.1 H COMPREHENSIVE METABOLIC [id number] 05:28:57* Test Item Value Reference Range Interpretation Comme nts GLUCOSE (test code = 2217) 103 MG/DL 70-99 H BUN (test code = 2208) 9 MG/DL 6-20 CREATININE (test code = 2214) 0.72 MG/DL 0.60-1.30 eGFR (2020 CKD-EPI) (test code = 50011) 106 ML/MIN/1.73 >60 CALC BUN/CREAT (test code = 2235) 13 RATIO 6-28 SODIUM (test code = 2231) 139 MEQ/L 133-146 POTASSIUM (test code = 2228) 4.5 MEQ/L 3.5-5.4 CHLORIDE (test code = 2215) 104 MEQ/L 95-107 CARBON DIOXIDE (test code = 2206) 24 MEQ/L 19-31 CALCIUM (test code = 2209) 9.5 MG/DL 8.5-10.5 PROTEIN, TOTAL (test code = 9) 6.5 G/DL 6.1-8.3 ALBUMIN (test code = 2201) 4.4 G/DL 3.5-5.2 CALC GLOBULIN (test code = 2240) 2.1 G/DL 1.9-3.7 CALC A/G RATIO (test code = 2234) 2.1 RATIO 1.0-2.6 BILIRUBIN, TOTAL (test code = 7) <0.2 MG/DL See_Comment [Automated me ssage] The system which generated this result transmitted reference range: <=1.2. The reference range was not used to interpret this result as normal/abnormal. ALKALINE PHOSPHATASE (test code = 2203) 129 U/L 40-115 H AST (test code = 8) 21 U/L 9-40 ALT (test code = 2219) 26 U/L 5-40 LIPID [id number] 05:28:57* Test Item Value Reference Range Interpretation Comme nts CHOLESTEROL (test code = 0) 207 MG/DL <200 H TRIGLYCERIDES (test code = 2) 130 MG/DL <150 HDL CHOLESTEROL (test code = 0) 45 MG/DL >39 CALC LDL CHOL (test code = 7) 137 MG/DL <100 H NOTE: CALCULATED LDL IS BASED ON DOMINIQUE-PEREZ METHOD WHICHINCLUDES ADJUSTABLE TRIGLYCERIDE:VLDL CHOLESTEROL RATIO.THIS FACTOR VARIES BY MEASURED TRIGLYCERIDE AND NON-HDLCHOLESTEROL CONCENTRATIONS WITH INCREASED CALCULATED LDL SEENIN HIGHER TRIGLYCERIDE OR LOWER NON-HDL SPECIMENS. FOR MOREINFORMATION, SEE CLIENT ANNOUNCEMENT AT [email or web address] RISK RATIO LDL/HDL (test code = 2238) 3.04 RATIO <3.22 HEMOGLOBIN [id number] 02:54:46* Test Item Value Reference Range Interpretation Comme nts HEMOGLOBIN A1c (test code = 17313) 5.6 % 4.2-5.6 CBC W/AUTO DIFF WITH [id number] 01:58:18* Test Item Value Reference Range Interpretation [...] = 1065) 0.0 /100 WBC'S See_Comment [Automated Userstorylaba ge] The system which generated this result [...] 0.00-0.10 ABS NUCLEATED RBCS (test code = 71962) 0.00 K/UL 0.00-0.11 VITAMIN [id number] 00:00:00* Test Item Value Reference Range Interpretation Comme nts VITAMIN B-12 (test code = 2840) 436 PG/ML Robert Ambrose VirajFOLATE, [id number] 00:00:00* Test Item Value Reference Range Interpretation Comme nts HEMATOCRIT (test code = 1004) 28.7 % FOLATE, RBC (test code = 2690) 1185 NG/ML Robert CaliURIC [id number] 00:00:00* Test Item Value Reference Range Interpretation Comme nts URIC ACID (test code = 2233) 6.7 MG/DL Robert CaliVITAMIN D, 25 [id number] 00:00:00* Test Item Value Reference Range Interpretation Comme rigoberto VITAMIN D, 25 OH (test code = 4958) 13 NG/ML Robert CaliCOMPREHENSIVE METABOLIC [id number] 00:00:00* Test Item Value Reference Range Interpretation Comme nts GLUCOSE (test code = 2217) 103 MG/DL BUN (test code = 2208) 9 MG/DL CREATININE (test code = 2214) 0.72 MG/DL eGFR (2020 CKD-EPI) (test code = 23553) 106 ML/MIN/1.73 CALC BUN/CREAT (test code = 2235) 13 RATIO SODIUM (test code = 2231) 139 MEQ/L POTASSIUM (test code = 2228) 4.5 MEQ/L CHLORIDE (test code = 2215) 104 MEQ/L CARBON DIOXIDE (test code = 2206) 24 MEQ/L CALCIUM (test code = 2209) 9.5 MG/DL PROTEIN, TOTAL (test code = 2229) 6.5 G/DL ALBUMIN (test code = 2201) 4.4 G/DL CALC GLOBULIN (test code = 2240) 2.1 G/DL CALC A/G RATIO (test code = 2234) 2.1 RATIO BILIRUBIN, TOTAL (test code = 2207) <0.2 MG/DL ALKALINE PHOSPHATASE (test code = 2204) 129 U/L AST (test code = 2218) 21 U/L ALT (test code = 2219) 26 U/L Robert CaliLIPID [id number] 00:00:00* Test Item Value Reference Range Interpretation Comme nts CHOLESTEROL (test code = 2210) 207 MG/DL TRIGLYCERIDES (test code = 2232) 130 MG/DL HDL CHOLESTEROL (test code = 2220) 45 MG/DL CALC LDL CHOL (test code = 2237) 137 MG/DL RISK RATIO LDL/HDL (test cod e = 2238) 3.04 RATIO Robert CaliHEMOGLOBIN [id number] 00:00:00* Test Item Value Reference Range Interpretation Comme nts HEMOGLOBIN A1c (test code = 78245) 5.6 % Robert CaliCBC W/AUTO [id number] 00:00:00* Test Item Value Reference Range Interpretation Comme nts WBC (test code = 1001) 6.7 K/UL RBC (test code = 1002) 4.06 M/UL HEMOGLOBIN (test code = 1003) 8.8 G/DL HEMATOCRIT (test code = 1004) 28.7 % MCV (test code = 1005) 70.7 fL MCH (test code = 1006) 21.7 PG MCHC (test code = 1007) 30.7 G/DL RDW (test code = 1038) 17.1 % NEUTROPHILS (test code = 1008) 67.9 % LYMPHOCYTES (test code = 1010) 18.5 % MONOCYTES (test code = 1011) 6.4 % EOSINOPHILS (test code = 1012) 6.0 % BASOPHILS (test code = 1013) 0.6 % IMMATURE GRANULOCYTES (test code = 1036) 0.6 % NUCLEATED RBCS (test code = 1065) 0.0 /100WBC'S PLATELET COUNT (test code = 1015) 256 K/UL ABSOLUTE NEUTROPHILS (test c ode = 1066) 4.57 K/UL ABSOLUTE LYMPHOCYTES (test c ode = 1067) 1.24 K/UL ABSOLUTE MONOCYTES (test cod e = 1068) 0.43 K/UL ABSOLUTE EOSINOPHILS (test c ode = 1040) 0.40 K/UL ABSOLUTE BASOPHILS (test cod e = 1069) 0.04 K/UL ABS IMMATURE GRANULOCYTES (t est code = 1020) 0.04 K/UL ABS NUCLEATED RBCS (test cod e = 21693) 0.00 K/UL Robert CaliTSH, THIRD [id number] 00:00:00* Test Item Value Reference Range Interpretation Comme nts TSH, THIRD GENERATION (test code = 2821) 1.310 UIU/ML Robert [id number] 20:05:22* Test Item Value Reference Range Interpretation Comme nts Leedey (test code = 6467577740) 1.1 mmol/L 0.6-1.2 ZAINAB (test code = ZAINAB) Toxic Range: ? Greater than 1.2 mmol/L Lab Interpretation (test code = 34266-2) [place] [address]-01-04 20:05:22* Test Item Value Reference Range Interpretation Comme nts [place] (test code = 9918578530) 1.1 mmol/L 0.6-1.2 ZAINAB (test code = ZAINAB) Toxic Range: ? Greater than 1.2 mmol/L Lab Interpretation (test code = 08966-8) [address]01-04 20:05:22* Test Item Value Reference Range Interpretation Comme nts [place] (test code = 3345045409) 1.1 mmol/L 0.6-1.2 ZAINAB (test code = ZAINAB) Toxic Range: ? Greater than 1.2 mmol/L Lab Interpretation (test code = 95509-2) [address]01-04 20:05:22* Test Item Value Reference Range Interpretation Comme nts [place] (test code = 6589210529) 1.1 mmol/L 0.6-1.2 ZAINAB (test code = ZAINAB) Toxic Range: ? Greater than 1.2 mmol/L Lab Interpretation (test code = 86998-1) [address]01-04 20:05:22* Test Item Value Reference Range Interpretation Comme nts [place] (test code = 1091725942) 1.1 mmol/L 0.6-1.2 ZAINAB (test code = ZAINAB) Toxic Range: ? Greater than 1.2 mmol/L Lab Interpretation (test code = 86253-6) [place] [address]-01-04 20:05:22* Test Item Value Reference Range Interpretation Comme nts [place] (test code = 5246524796) 1.1 mmol/L 0.6-1.2 ZAINAB (test code = ZAINAB) Toxic Range: ? Greater than 1.2 mmol/L Lab Interpretation (test code = 94768-5) [address]01-04 20:05:22* Test Item Value Reference Range Interpretation Comme nts [place] (test code = 1501396823) 1.1 mmol/L 0.6-1.2 ZAINAB (test code = ZAINAB) Toxic Range: ? Greater than 1.2 mmol/L Lab Interpretation (test code = 58952-0) [facility]2023-01-04 20:05:22* Test Item Value Reference Range Interpretation Comme nts Leedey (test code = 4968107799) 1.1 mmol/L 0.6-1.2 ZAINAB (test code = ZAINAB) Toxic Range: ? Greater than 1.2 mmol/L Lab Interpretation (test code = 75535-0) [facility]2023-01-04 20:05:22* Test Item Value Reference Range Interpretation Comme nts Leed[place] (test code = 3548224371) 1.1 mmol/L 0.6-1.2 ZAINAB (test code = ZAINAB) Toxic Range: ? Greater than 1.2 mmol/L Lab Interpretation (test code = 10235-4) [facility]2023-01-04 20:05:22* Test Item Value Reference Range Interpretation Comme nts [place]ed[place] (test code = 2546913121) 1.1 mmol/L 0.6-1.2 ZAINAB (test code = ZAINAB) Toxic Range: ? Greater than 1.2 mmol/L Lab Interpretation (test code = 01275-0) [facility] [id number] 00:00:00* Test Item Value Reference Range Interpretation Comme [facility] VITAMIN D, 25 OH (test code = 4958) 17 NG/ML [facility] [id number] 00:00:00* Test Item Value Reference Range Interpretation Comme nts WBC (test code = 1001) 7.2 K/UL RBC (test code = 1002) 4.29 M/UL HEMOGLOBIN (test code = 1003) 11.2 G/DL HEMATOCRIT (test code = 1004) 34.1 % MCV (test code = 1005) 79.5 fL MCH (test code = 1006) 26.1 PG MCHC (test code = 1007) 32.8 G/DL RDW (test code = 1038) 15.4 % NEUTROPHILS (test code = 1008) 62.7 % LYMPHOCYTES (test code = 1010) 26.5 % MONOCYTES (test code = 1011) 6.3 % EOSINOPHILS (test code = 1012) 3.6 % BASOPHILS (test code = 1013) 0.6 % IMMATURE GRANULOCYTES (test code = 1036) 0.3 % NUCLEATED RBCS (test code = 1065) 0.0 /100WBC'S PLATELET COUNT (test code = 1015) 243 K/UL ABSOLUTE NEUTROPHILS (test c ode = 1066) 4.52 K/UL ABSOLUTE LYMPHOCYTES (test c ode = 1067) 1.91 K/UL ABSOLUTE MONOCYTES (test cod e = 1068) 0.45 K/UL ABSOLUTE EOSINOPHILS (test c ode = 1040) 0.26 K/UL ABSOLUTE BASOPHILS (test cod e = 1069) 0.04 K/UL ABS IMMATURE GRANULOCYTES (t est code = 1020) 0.02 K/UL ABS NUCLEATED RBCS (test cod e = 65080) 0.00 K/UL Robert CaliHEMOGLOBIN [id number] 00:00:00* Test Item Value Reference Range Interpretation Comme nts HEMOGLOBIN A1c (test code = 64338) 5.5 % Robert CaliLIPID [id number] 00:00:00* Test Item Value Reference Range Interpretation Comme nts CHOLESTEROL (test code = 2210) 181 MG/DL TRIGLYCERIDES (test code = 2232) 81 MG/DL HDL CHOLESTEROL (test code = 2220) 46 MG/DL CALC LDL CHOL (test code = 2237) 117 MG/DL RISK RATIO LDL/HDL (test cod e = 2238) 2.54 RATIO Robert CaliCOMPREHENSIVE METABOLIC [id number] 00:00:00* Test Item Value Reference Range Interpretation Comme nts GLUCOSE (test code = 2217) 102 MG/DL BUN (test code = 2208) 10 MG/DL CREATININE (test code = 2214) 0.67 MG/DL eGFR AMER. (test cod e = 32757) 126 ML/MIN/1.73 eGFR NON- AMER. (test code = 15931) 108 ML/MIN/1.73 CALC BUN/CREAT (test code = 2235) 15 RATIO SODIUM (test code = 2231) 140 MEQ/L POTASSIUM (test code = 2228) 4.7 MEQ/L CHLORIDE (test code = 2215) 106 MEQ/L CARBON DIOXIDE (test code = 2206) 23 MEQ/L CALCIUM (test code = 2209) 9.1 MG/DL PROTEIN, TOTAL (test code = 2229) 6.9 G/DL ALBUMIN (test code = 2201) 4.0 G/DL CALC GLOBULIN (test code = 2240) 2.9 G/DL CALC A/G RATIO (test code = 2234) 1.4 RATIO BILIRUBIN, TOTAL (test code = 2207) <0.2 MG/DL ALKALINE PHOSPHATASE (test code = 2204) 127 U/L AST (test code = 2218) 18 U/L ALT (test code = 2219) 18 U/L Robert [id number] 00:00:00* Test Item Value Reference Range Interpretation Comme nts TSH, THIRD GENERATION (test code = 2821) 1.140 UIU/ML Robert CaliLIPID PROFILE (CORONARY RISK)2018-07-20 07:27:00* Test Item Value [...] mg/dL VERY HIGH.........>/= 190 mg/dL Comments to [employer] Crane Operator: ADD TO AM LABSLIPID PROFILE (CORONARY [...] code = LDL) MG/DL 0-99 Comments to [employer] Cr[employer] Operator: ADD TO AM LABSPROTHROMBIN [id number] 06:24:00* Test Item Value Reference Range Interpretation [...] systemic embolism. 3.0 - 4.5 Comments to [employer] Cr[employer] Operator: NURSE WILL BRING SPECIMEN TO LABPTT ACTIVATED 2018-07-20 06:24:00* Test Item Value Reference Range Interpretation Comme nts PTT ACTIVATED (test code = APTT) 29.3 SECONDS 22.0-33.0 N Comments to C[employer] Cr[employer] Operator: NURSE WILL BRING SPECIMEN TO LABBASIC METABOLIC [...] CA) 9.6 MG/DL 8.4-10.2 N Comments to [employer] Cr[employer] Operator: NURSE WILL BRING SPECIMEN TO LAB Comments to [employer] Cr[employer] Operator: NURSE WILL BRING SPECIMEN TO [id number] 06:13:00* Test Item Value Reference Range Interpretation Comme nts MAGNESIUM (test code = MAG) 2.2 MG/DL 1.6-2.3 N Comments to [employer] Crane Operator: NURSE WILL BRING SPECIMEN TO LAB Comments to [employer] Crane Operator: NURSE WILL BRING SPECIMEN TO LABCBC W/AUTO [id number] 06:02:00 * Test Item Value Reference Range [...] 0.0-0.1 N Notes Date/Time Note Provider Source Robert Willson [facility]2024-06-26 15:01:26 Order for Monoferric Infusion was faxed to [facility], fax # Fax- [phone]. Fax confirmed as received. I called patient to inform her that order was sent. T Salvatore Westbrook RNMiami Valley HospitalJyrexa1999-50-75 12:08:22 I ordered IV iron if you dont mind faxing it. Thank you! T [facility] HospitalPhpidj3564-62-85 15:54:54 Yes if you can send over the last infusion order we sent again to [facility]. Otherwise we can do it when in back next week [facility]2024-06-17 15:40:16 Patient called stating that her GI provider said he would order an Iron infusion for patient one more time, but that she would have to follow-up with hematology from now on for iron infusion orders. Patient would like to have the order placed and the infusion done at [facility] as before. There is no mention of this in BAKARI note. Salvatore Westbrook [facility] HospitalIuoflz6820-83-34 12:20:48 I called patient and explained that [...] keep appointment with Dr. Cordero on 07/26/23. Salvatore Westbrook [facility] HospitalNoflnr5106-58-67 10:35:15 Pt is requesting orders for an [...] constantly declining. Pt was life flight to [facility] recently due to a stroke. Pls advise. Vega GregoryMiami Valley HospitalNkfhmo4595-64-00 02:18:19 Rn went over poc and discharge teaching with pt prior to departure. Iv discontinued and discharge packet went over with pt. Pt verbalizes understanding of education and medications. Pt states that no belogings were left in room. Pt and family departed to [facility]. Pt using ed wheelchair Lizandro Bah [place] 084104-04-26 01:38:45 Patient currently sitting up, drinking water. Patient family to assist patient in changing clothes and then to perform walk test. Patient pending walk test and results at this time. Kiley Darling [place] 084104-04-26 01:29:14 Dr. Pabon at bedside [place] 783334-04-26 00:00:00 Patient currently resting in ED stretcher, accompanied by visitors at this time. Patient awaiting clinical sobriety for d/c. NAD noted, VSS, RR e/u, bed locked in lowest position with side rails elevated x 2. Patient family denies additional needs at this time, will notify staff if needs anything. [place] 783334-04-25 22:44:51 Pt straight cath x2 RN per [...] tx per plan of care Angela Larsen RNUTMB - [id number] 22:30:00 Report taken from Armand PATEL. Patient [...] VSS, RR e/u. See neuro focused assessment. [place] 04255-04-25 22:06:00 STROKE ALERT CANCELLED per neuro Paged out @ [address] [place] [id number] 22:04:19 Neuro resident verbalizes he is canceling the stroke alert. [facility] Puneet Coker [place] [id number] 22:04:00 Stroke orders cancelled per neurology faculty and Dr. Pabon at this time. [place] 04255-04-25 21:54:[address] Reflexes intact, will not follow commands or speak, however. [place] [id number] 21:40:[address] via stretcher, pt connected to serial VS and cardiac monitoring. Neuro resident in CT In CT, Pt appeared to be selectively following commands and opening eyes. Pt was addressed in both [place] and [place]ian, yet did not answer questions verbally nor with any head shakes/ nods. Pt resp e/u on RA w equal chest rise and fall. Skin warm dry approp tone. When pt opened eyes on command, PERRLA 4mm. Labs drawn. [facility]2024-04-25 21:39:01 Shivani Schuler is a 47 year [...] pain, VSWNL, NAD noted. Pt to CT [facility]2024-04-25 21:35:00 Shivani Schuler is a 47 year old female who presents from home([place]) via [facility] after pt's daughter heard [...] back and forth and squinting eyes shut. 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 The CNC MANAGER are patent bilaterally. No sizable posterior [...] The superior cerebellar arteries are patent. The CNC MANAGER are patent bilaterally. No sizable posterior [...] RDW-SD 43.8 39.0 - 49.9 fL NRBC x103<0.01 10*3/?L NRBC/100 WBC 0.0 0.0 - 10.0 [...] I 0.003 <=0.034 ng/mL LITHIUM - Normal [place] 0.6 0.6 - 1.2 mmol/L ETHANOL ALCOHOL [...] (IMMUNOASSAY) - COMPREHENSIVE DRUG SCREEN W/O REFLEX [place] O2 Nasal Cannula Orders Placed This Encounter [...] 06/08/23 0136 Marysol Pabon DO 06/08/23 0147 [facility] EMERGENCY PHYSICIAN [facility]2024-04-22 10:50:05 I called patient to ascertain what medication she is referring to that was Rxd but not received. No answer, I LVM with my call back number. Salvatore [facility] 11:48:54 Gastroenterolgy appt has been placed. Jessica Pang [place] 084104-03-29 16:55:45 I called patient to follow-up from [...] appointment with Dr. Boston for these symptoms. Salvatore Westbrook [place] [id number] 16:58:43 Pt called about her Iron infusion needed. GI provider requested patient's PCP follow up with this request. At initial visit, patient's GI provider did order Iron Infusion: 11/23/22: Order for MONOFERRIC infusion sent to [facility], fax # [phone]. Fax was confirmed as received. The above [...] refills of medications that can help her. Salvatore [facility]Uaivov6875-32-99 09:11:36 I called patient to relay her GI provider's msg. Patient understands and asked if I could send last order for iron infusion to show her PCP so it can be done thru their office. [facility]. E SETTINGS PAINTER Salvatore Westbrook [id number] 08:51:07 Dericy salvatore I would but I think her PCP should be able to do this and because of previous issues with the order will let them handle it. It should be possible for PCP to do it if they put in a little effort [facility]2024-01-25 16:20:43 I called patient who stated she received a chart msg from Dr. Cordero stating her iron was low and recommended she take infusion. Patient needs another referral for the iron infusion at [facility]. Patient stated her PCP has no clue on how to order infusion. Patient states GI provider did put in the last order that was done at [facility]. 11/23/22: Order for MONOFERRIC infusion sent to [facility], fax # [phone]. Fax was confirmed as received. NEL Westbrook [facility] HospitalSsucxy1243-44-79 15:42:27 Shivani Schuler is a 47 year old female Pt is calling requesting for referral to be placed to [facility] in regards to getting iron infusion done. Please call the pt to discuss. Please advise. NEL [place] [id number] 10:30:00 Images from the original note were not included. Venipuncture collection performed by clean technique on the right anticubitus and back of left hand. Total of 2 attempts were made. Slight pressure and a bandage/dressing were applied to the site(s). The patient experienced no complications. The following specimens were processed according to instructions and sent to [facility] laboratories per lab order on 02/15/2023 : LT BLUE SST 1 RED LAV PPT DK GREEN (LiHep) DK GREEN (SodH) SUE DK BLUE (K2) DK BLUE (S) ACD Blood Culture NIPT/NTD [facility]2023-12-01 21:52:03 Dr. Cordero, Please call patient and see how we can help. ED precautions if worsening symptoms. Dominic [facility] IM-GASTROENTEROLOGY [facility]2023-09-07 08:30:00 Images from the original note were not included. Venipuncture collection performed by clean technique on the left anticubitus. Total of 1 attempts were made. Slight pressure and a bandage/dressing were applied to the site(s). The patient experienced no complications. The following specimens were processed according to instructions and sent to [facility] laboratories LT BLUE Lt Green SST 2 RED LAV PPT DK GREEN (L) DK GREEN (S)/// Fibrosure set BLUE,SST & LAV SUE DK BLUE (K2) DK BLUE (S) ACD RST BLOOD CULTURE NIPT or ALLOSURE VERIFYNOW URINE URINE CULTURE APTIMA URINE STOOL Monogram Z plasma preservative tube (call lab for tube)[facility] Vasoactive Intestinal Peptide (call lab for tube)[facility] Samantha RosalesMiami Valley HospitalGlntsb2982-74-84 10:15:00 Images from the original note were not included. Venipuncture collection performed by clean technique on the left anticubitus. Total of 1 attempts were made. Slight pressure and a bandage/dressing were applied to the site(s). The patient experienced no complications. The following specimens were processed according to instructions and sent to [facility] laboratories per lab order on 10/05/2022: LT BLUE SST 1 RED LAV 2 PPT DK GREEN (LiHep) DK GREEN (SodH) SUE DK BLUE (K2) DK BLUE (S) ACD Blood Culture NIPT/NTD [facility] S[id number] [place] [address] PATIENT NAME: SHIVANI SCHULER ADMIT DATE: 07/20/18 ACCOUNT NO: [id number] ROOM NO: AGE: 43 REPORT TYPE: CARDIAC CATHETERIZATION REPORT SEX: F ADMITTING PHYSICIAN: ATTENDING PHYSICIAN:Thea Harper MD PROCEDURE DATE: 07/20/2018 HEALTH WORKERS: Thea Harper MD TITLE OF THE PROCEDURE: [...] femoral artery area for local anesthesia. A 6-Dutch sheath was placed in the right common [...] transferred back to the [facility] area for observation to be discharged later on today on medical therapy PATIENT NAME: SHIVANI SCHULER and risk factor modification. Dictated By: Thea Harper MD WT: CATH:ADRIANA/KIAN/RIGOBERTO Conf#: [id number]/DID#: [id number] Authenticated by Thea Harper MD On 07/20/2018 08:15:22 AM at 0815 PATIENT NAME: SHIVANI SCHULER [id number] [place] [address] PATIENT NAME: SHIVANI SCHULER ADMIT DATE: 07/20/18 ACCOUNT NO: [id number] ROOM NO: AGE: 43 REPORT TYPE: ELECTROCARDIOGRAM SEX: F ADMITTING PHYSICIAN: ATTENDING PHYSICIAN:Thea Harper MD Order: [id number] Test Reason : CAD Test Date/Time Stamp: [...] HARPER at 0921 PATIENT NAME: SHIVANI SCHULER [id number] [address] PATIENT NAME: SHIVANI SCHULER ADMIT DATE: 07/20/18 ACCOUNT NO: [id number] ROOM NO: AGE: 43 REPORT TYPE: HISTORY AND PHYSICAL SEX: F ADMITTING PHYSICIAN: ATTENDING PHYSICIAN:Thea Harper MD ADMISSION DATE: 07/20/2018 HEALTH WORKERS: Thea Harper MD REASON FOR ADMISSION: Chest [...] By: Thea Harper MD WT: HP:TRAVIS/KIAN/RIGOBERTO Conf#: [id number]/DID#: [id number] Authenticated by Thea Harper MD On 07/25/2018 07:20:46 AM at 0721 PATIENT NAME: SHIVANI SCHULER
[2023-12-09 19:33] LABS: Absolute Basophils 0.1 K/uL (0-0.5); Absolute Eosinophils 0.3 K/uL (0-0.5); Absolute Lymphocytes (CBC) 1.6 K/uL (0.7-4.9); Absolute Monocytes 0.5 K/uL (0.1-1.3); Absolute Neutrophil 4.6 K/uL (1.8-8.0); Basophils % 0.8 % (0-1.3); Eosinophils % 4.2 % (0-4.4); Hematocrit 28.5 % (36.0-45.0); MCH 21.6 pg (27.0-35.0); MCHC 31.4 g/dL (32.0-36.0); MCV 68.7 fL (80-100); MPV 8.9 fL (7.6-11.3); Monocytes % 6.7 % (3.3-12.3); Neutrophils % 65.3 % (41.7-73.7); Platelets 284 thou/uL (152-406); RBC Red Blood Cell Count 4.16 M/uL (3.86-4.86); Red Cell Distribution Width 18.9 % (12.1-15.2)
[2023-12-09] MEDS ORDERED: ONDANSETRON 4 MG/2 ML VIAL ONE (19:34)
[2023-12-09] MEDS ORDERED: KETOROLAC 30 MG/ML INJ ONE (19:34)
[2023-12-09] MEDS ORDERED: NA CHLORIDE 0.9% 1,000 ML ONE (19:34)
[2023-12-09 19:45] LABS: Albumin 3.4 g/dL (3.4-5.0); Anion Gap 7.8 mEq/L (5.0-15.0); Bilirubin Total 0.2 mg/dL (0.2-1.0); Globulin 3.4 g/dL (2.3-3.5); Potassium 3.8 mEq/L (3.5-5.1); Protein, Total 6.8 g/dL (6.4-8.2)
--- NOTE | 2023-12-09 19:47 | RAD REPORT ---
EXAMINATION: US PELVIS TRANSABDOMINAL WITH DOPPLER CLINICAL INDICATION: Abd pain;Vaginal bleeding TECHNIQUE: Real-time ultrasonography of the pelvis was performed transabdominally. Color and spectral Doppler evaluation of the ovaries was performed. COMPARISON: 08/24/2023 FINDINGS: UTERUS AND CERVIX: The uterus measures 10.6 x 5.5 x 5.1 cm (cervix to fundus x AP x transverse). The uterus is normal. No masses seen The endometrium is normal,6 mm in thickness. RIGHT OVARY: Normal The right ovary measures 2.4 x 1.7 cm. Normal color and spectral Doppler evaluati on of the right ovary.. LEFT OVARY: Normal The left ovary measures 3.1 x 1.5 cm. Normal Color and spectral Doppler evaluati on of the left ovary.. FREE FLUID: No free fluid. ADDITIONAL FINDINGS: IMPRESSION: Unremarkable examination.
[2023-12-09 19:48] LABS: Sqamous Epithelial <5 /HPF (None Seen); Urine Bacteria None Seen /HPF (<20); Urine Bilirubin NEGATIVE (Negative); Urine Blood 3+ (OVER) (Negative); Urine Clarity Extremely Turbid (Clear); Urine Color Light-Orange (Yellow); Urine Culture Reflex Order NOT NEEDED; Urine Glucose NEGATIVE (Negative); Urine Ketones NEGATIVE (Negative); Urine Microscopic Reflex YN ORDER UMIC; Urine Nitrite NEGATIVE (Negative); Urine Protein 1+ (Negative); Urine RBC >50 /HPF (None Seen); Urine Urobilinogen Normal (Normal); Urine WBC <5 /HPF (<5)
--- NOTE | 2023-12-09 21:33 | EDPHYS ---
Physician Documentation [facility] Name: Shivani Lagunas Age: 48 yrs Sex: Female : 1975 Arrival Date: 12/09/2023 Time: 17:41 Bed 5 Private MD: ED Physician Arthur Hernandez HPI: 12/08 19:22 This 48 yrs old Female presents to ER via Ambulatory with complaints of dr5 Abdominal Pain, Fever. 19:22 The patient presents with abdominal pain right lower quadrant. dr5 19:22 Onset: The symptoms/episode began/occurred 2 day(s) ago. The symptoms. Associated signs dr5 and symptoms: Pertinent positives: fever. The symptoms are described as sharp. Modifying factors:. Severity of pain: in the emergency department the pain has improved moderately. Pt coming in for vaginal bleeding, RLQ abdominal tenderness, and fever for the past two days. Pt has hx of appendectomy and cholecystectomy. Pt reports she has heavy menstrual cycles and is getting an iron infusion in the next two weeks and has appointment created. Pt also reports dysuria.. 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 - Infectious Disease History:: Denies. - Social history:: Smoking status: Patient denies any tobacco usage or history of. ROS: 19:26 Constitutional: as per hpi dr5 Exam: 19:26 Constitutional: This is a well developed, well nourished patient who is awake, alert, dr5 and in no acute distress. Head/Face: Normocephalic, atraumatic. Neck: Trachea midline, no thyromegaly or masses palpated, and no cervical lymphadenopathy. Supple, full range of motion without nuchal rigidity, or vertebral point tenderness. No Meningismus. Chest/axilla: Normal chest wall appearance and motion. Nontender with no deformity. No lesions are appreciated. Cardiovascular: Regular rate and rhythm with a normal S1 and S2. Normal PMI, no JVD. No pulse deficits. Respiratory: Lungs have equal breath sounds bilaterally, clear to auscultation. No rales, rhonchi or wheezes noted. No increased work of breathing, no retractions or nasal flaring. 19:26 Abdomen/GI: Inspection: abdomen appears normal, Bowel sounds: normal, Palpation: soft, in all quadrants, nontender, in all quadrants, Vital Signs: 17:59 BP 170 / 99; Pulse 84; Resp 16; Temp 99.7(O); Pulse Ox 97% on R/A; Weight 97.52 kg; hb Height 5 ft. 6 in. ; Pain 7/10; 19:59 BP 148 / 79; Pulse 71; Pulse Ox 100% on R/A; MAP 97 mmHg; tm6 21:58 BP 162 / 85; Pulse 71; Resp 17; Temp 99.1; Pulse Ox 98% on R/A; MAP 107 mmHg; Pain 0/10;tm6 17:59 Body Mass Index 34.70 (97.52 kg, 167.64 cm) hb 17:59 Pain Scale: Adult hb 21:58 Pain Scale: Adult tm6 MDM: 18:21 Medical Screening Exam initiated dr5 19:26 Differential diagnosis: Ovarian Cyst. Differential diagnosis: urinary tract infection, dr5 Ovarian Cyst, Constipation, Ovarian Torsion. 21:59 Data reviewed: vital signs, nurses notes. Consideration of Admission/Observation dr5 Escalation of care including admission/observation considered. Escalation considered if US results came back with concerns for ovarian torsion. Care significantly affected by the following chronic conditions: BPD, CHF, HTN, Schizophrenia. Care significantly affected by the following Social Determinants of Health: Poor access to healthcare and/or lack of insurance, Poor access to transportation. Counseling: I had a detailed discussion with the patient and/or guardian regarding the historical points, exam findings, and any diagnostic results supporting the discharge/admit diagnosis, the presence of at least one elevated blood pressure reading (>120/80) during this emergency department visit, lab results, the need for outpatient follow up, for definitive care, a family practitioner, a neurologist, to return to the emergency department if symptoms worsen or persist or if there are any questions or concerns that arise at home. Medication response: Toradol markedly relieved the patient's pain, ED course: Patient's pain resolved after medication. Ultrasound completed with no acute abnormality. pv installer tech noted that patient has moderate amount of stool. Patient reports she takes MiraLAX daily due to bowel movement problems. Upon reassessment, patient states that she is being seen by neurologist and taking Xanax as needed anxiety. Patient states that she is starting to feel anxious. Gave 0.5 mg of Ativan IV for anxiety and patient has a ride home. Recommended follow-up with PCP and neurologist and will start patient on medication for constipation. Reassessment of abdomen was normal. All questions answered and return if worsening conditions.. 12/08 18:31 Order name: CBC with Diff dr5 12/08 18:31 Order name: CMP; Complete Time: 19:46 dr5 12/08 18:31 Order name: Lipase; Complete Time: 19:46 dr5 12/08 18:31 Order name: Test, Urine; Complete Time: 19:45 dr5 12/08 18:31 Order name: Urinalysis w/ reflexes; Complete Time: 19:57 dr5 12/08 19:39 Order name: CBC Smear Scan EDMS 12/08 18:31 Order name: US Pelvis Complete; Complete Time: 19:57 dr5 12/08 18:31 Order name: IV Saline Lock; Complete Time: 19:02 dr5 12/08 18:31 Order name: Labs collected and sent; Complete Time: 19:02 dr5 Administered Medications: 20:16 Drug: TORadol - Ketorolac IVP 15 mg IVP once Route: IVP; Site: left antecubital; tm6 21:48 Follow up: Response: No adverse reaction tm6 20:16 Drug: Ondansetron IVP 4 mg IVP once; over 2 minutes Route: IVP; Site: left antecubital; tm6 21:48 Follow up: Response: No adverse reaction tm6 20:16 Drug: NS 0.9% IV 1000 ml IV at 1 bolus Per protocol; to be given as a bolus over 60 tm6 minutes Route: IV; Rate: 1 bolus; Site: left antecubital; 21:48 Follow up: Response: No adverse reaction; IV Status: Completed infusion; IV Intake: tm6 1000ml 21:58 Drug: Ativan IVP 0.5 mg IVP once Route: IVP; Site: left antecubital; tm6 21:58 Follow up: Response: Medication administered at discharge. tm6 Disposition Summary: 12/09/23 21:32 Discharge Ordered Notes: Location: Home dr5 Condition: Stable dr5 Diagnosis - Constipation dr5 Followup: dr5 - With: Emergency Department - When: As needed - Reason: Worsening of condition Followup: dr5 - With: Private Physician - When: 1 - 2 days - Reason: Recheck today's complaints, Continuance of care, Re-evaluation by your physician Discharge Instructions: - Discharge Summary Sheet dr5 - Constipation, Adult dr5 Forms: - Medication Reconciliation Form dr5 - Patient Portal Instructions dr5 - Leadership Thank You Letter dr5 Prescriptions: - Colace 100 mg Oral Tablet - take 1 tablet ORAL route every 12 hours; 14 tablet; Refills: 0, Product dr5 Selection Permitted Signatures: Dispatcher [employer] EDMS Consuelo Chang, RN RN Jacqueline Pearson, RN RN Danni Escalera, RN RN tm6 Ruddy Ramos, ABAD-C DIAGNOSTIC CARDIAC SONOGRAPHER-5 Corrections: (The following items were deleted from the chart) 18:32 18:32 CBC+H.LAB.BRZ ordered. EDMS EDMS 18:32 18:32 COMPREHENSIVE METABOLIC PANEL+C.LAB.BRZ ordered. EDMS EDMS 18:32 18:32 LIPASE+C.LAB.BRZ ordered. EDMS EDMS 18:32 18:32 Test, Urine+UC.LAB.BRZ ordered. EDMS EDMS 18:32 18:32 Urinalysis+U.LAB.BRZ ordered. EDMS EDMS 18:32 18:32 Pelvis Complete+US.RAD.BRZ ordered. EDMS EDMS 19:26 19:22 Pt coming in for vaginal bleeding, RLQ abdominal tenderness, and fever for the dr5 past two days. Pt has hx of appendectomy and cholecystectomy. Pt reports she has heavy menstrual cycles and is getting an iron infusion in the next two weeks and has appointment created.. dr5
--- NOTE | 2023-12-09 21:33 | ER ---
Nurse's Notes [facility] Name: Shivani Lagunas Age: 48 yrs Sex: Female : 1975 Arrival Date: 12/09/2023 Time: 17:41 Bed 5 Private MD: Diagnosis: Constipation Presentation: 12/08 17:59 Chief complaint: RLQ pain that radiates to back and fever x 2 days. Coronavirus screen: hb At this time, the client does not indicate any symptoms associated with coronavirus-19. Ebola Screen: No symptoms or risks identified at this time. Initial Sepsis Screen: Does the patient meet any 2 criteria? No. Patient's initial sepsis screen is negative. Does the patient have a suspected source of infection? No. Patient's initial sepsis screen is negative. Risk Assessment: Do you want to hurt yourself or someone else? Patient reports no desire to harm self or others. Onset of symptoms was December 08, 2023. 17:59 Method Of Arrival: Ambulatory hb 17:59 Acuity: ALICIA 3 hb Triage Assessment: 18:06 General: Appears in no apparent distress. Behavior is calm, cooperative. 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 - Infectious Disease History:: Denies. - Social history:: Smoking status: Patient denies any tobacco usage or history of. Screenin:08 [facility] ED Fall Risk Assessment (Adult) History of falling in the last 3 months, ph including since admission No falls in past 3 months (0 pts) Confusion or Disorientation No (0 pts) Intoxicated or Sedated No (0 pts) Impaired Gait No (0 pts) Mobility Assist Device Used No (0 pt) Altered Elimination No (0 pt) Score/Fall Risk Level 0 - 2 = Low Risk Oriented to surroundings, Maintained a safe environment, Hourly rounding (assess needs \T\ fall precautionary measures) done. Abuse screen: Denies threats or abuse. Denies injuries from another. Nutritional screening: No deficits noted. Tuberculosis screening: No symptoms or risk factors identified. Assessment: 18:06 Pain: Complains of pain in right lower quadrant Pain radiates to left lower quadrant. ph Pain: Pain radiates to low back area. Neuro: Level of Consciousness is awake, alert, obeys commands, Oriented to person, place, time, situation. Cardiovascular: Capillary refill < 3 seconds in bilateral fingers Patient's skin is warm and dry. Respiratory: Airway is patent Respiratory effort is even, unlabored. GI: Abdomen is non-distended, Bowel sounds present X 4 quads. Reports lower abdominal pain, Patient currently denies diarrhea, nausea, vomiting. : Reports pain in bilateral lower quadrant(s) in lower back vaginal bleeding that is heavy flow. Derm: Skin is flushed, Skin temperature is warm. 18:06 GI: Abd is soft and non tender X 4 quads. tm6 19:01 Reassessment: Patient and/or family updated on plan of care and expected duration. Pain tm6 level reassessed. Patient is alert, oriented x 3, equal unlabored respirations, skin warm/dry/pink. 19:59 Reassessment: Patient and/or family updated on plan of care and expected duration. Pain tm6 level reassessed. Patient is alert, oriented x 3, equal unlabored respirations, skin warm/dry/pink. 21:59 Reassessment: Patient and/or family updated on plan of care and expected duration. Pain tm6 level reassessed. Patient is alert, oriented x 3, equal unlabored respirations, skin warm/dry/pink. Vital Signs: 17:59 BP 170 / 99; Pulse 84; Resp 16; Temp 99.7(O); Pulse Ox 97% on R/A; Weight 97.52 kg; hb Height 5 ft. 6 in. ; Pain 7/10; 19:59 BP 148 / 79; Pulse 71; Pulse Ox 100% on R/A; MAP 97 mmHg; tm6 21:58 BP 162 / 85; Pulse 71; Resp 17; Temp 99.1; Pulse Ox 98% on R/A; MAP 107 mmHg; Pain 0/10;tm6 17:59 Body Mass Index 34.70 (97.52 kg, 167.64 cm) hb 17:59 Pain Scale: Adult hb 21:58 Pain Scale: Adult tm6 ED Course: 17:44 Patient arrived in ED. ra3 17:50 Consuelo Chang, RN is Primary Nurse. ph 18:01 Triage completed. hb 18:07 Arm band placed on. hb 18:08 Patient has correct armband on for positive identification. Bed in low position. Call ph light in reach. Side rails up X 1. Pulse ox on. NIBP on. Door closed. Noise minimized. 18:14 Ruddy Ramos FNP-C [facility]. dr5 18:14 Arthur Hernandez MD is Attending Physician. dr5 19:01 Inserted saline lock: 22 gauge in right forearm, using aseptic technique. Blood tm6 collected. Flushed with 10 mL NS. 19:02 CBC with Diff Sent. tm6 19:02 CMP Sent. tm6 19:02 Lipase Sent. tm6 19:02 Test, Urine Sent. tm6 19:02 Urinalysis w/ reflexes Sent. tm6 19:39 US Pelvis Complete In Process Unspecified. EDMS 19:59 IV discontinued, intact, bleeding controlled, No redness/swelling at site. Pressure tm6 dressing applied. 20:01 Inserted saline lock: 22 gauge in left antecubital area, using aseptic technique. Blood oh1 collected. Flushed with 10 mL NS. 21:20 Warm blanket given. oh1 21:59 No provider procedures requiring assistance completed. IV discontinued, intact, tm6 bleeding controlled, No redness/swelling at site. Pressure dressing applied. 22:00 Provided Education on: use of prescription med. tm6 Administered Medications: 20:16 Drug: TORadol - Ketorolac IVP 15 mg IVP once Route: IVP; Site: left antecubital; tm6 21:48 Follow up: Response: No adverse reaction tm6 20:16 Drug: Ondansetron IVP 4 mg IVP once; over 2 minutes Route: IVP; Site: left antecubital; tm6 21:48 Follow up: Response: No adverse reaction tm6 20:16 Drug: NS 0.9% IV 1000 ml IV at 1 bolus Per protocol; to be given as a bolus over 60 tm6 minutes Route: IV; Rate: 1 bolus; Site: left antecubital; 21:48 Follow up: Response: No adverse reaction; IV Status: Completed infusion; IV Intake: tm6 1000ml 21:58 Drug: Ativan IVP 0.5 mg IVP once Route: IVP; Site: left antecubital; tm6 21:58 Follow up: Response: Medication administered at discharge. tm6 Medication: 18:08 VIS not applicable for this client. ph Intake: 21:48 IV: 1000ml; Total: 1000ml. tm6 Outcome: 21:32 Discharge ordered by . dr5 22:00 Discharged to home ambulatory, with family, tm6 22:00 Condition: stable 22:00 Discharge instructions given to patient, Instructed on discharge instructions, follow up and referral plans. medication usage, Demonstrated understanding of instructions, follow-up care, medications, Prescriptions given X 1, 22:00 Patient left the ED. tm6 Signatures: Dispatcher [employer] EDMS Consuelo Chang RN RN Jacqueline Pearson RN RN Danni Escalera RN RN tm6 Valeria Reed 3 Piper Cao in1 Ruddy Ramos, NETWORK DESIGNER-C NETWORK DESIGNER-Cdr5
[2023-12-09] MEDS ORDERED: LORazepam 2 MG/ML VIAL ONE (21:51)
[2023-12-09 22:44] LABS: Blood Morphology Comment NOTED (NOT SEEN); Microcytosis 1+; Platelet Estimate ADEQ; Polychromasia SLIGHT; White Blood Cell Scan OK (OK)
[2023-12-10 04:03] VITALS: BP 162/85; TEMP 99.1; O2SAT 98
== END 2023-12-09 22:00 | disposition home or self-care (01) ==
LOC: ER 17:41
DX: K59.00 Constipation, unspecified (principal); I11.0 Hypertensive heart disease with heart failure; I50.9 Heart failure, unspecified; Z88.2 Allergy status to sulfonamides
CPT/HCPCS: 96361; 85025; 81001; 36415; 81025; 83690; 80053; 76856; 96375; 96374; 99284; J2405; J7030

== ENCOUNTER 2024-01-21 09:49 | Emergency (ER) | payer OTHER ==
--- OUTSIDE RECORDS SUMMARY | 2024-01-21 10:07 | XMS REPORT | Continuity of Care Document ---
Author Name Unknown Address [address] [facility] [address] [place] [address] [facility] thconnect Address [address] [facility] [address] [place] [address] Care Team Providers Care Literacy Coach Name Role Phone [facility] Primary Care Physician Jae Holloway Attending Clinician Unavailable Doctor Unassigned, [place] Attending Clinician U Tavon Ruth MD Attending Clinician [phone] ALESHA CROWE Attending Clinician Unavailable Elidia Cordero MD Attending Clinician [phone] Dominic Keita MD Attending Clinician [phone] Jose Westbrook MD Attending Clinician [phone] JOSE WESTBROOK Attending Clinician Unavailable FARZANA SAUCEDA Attending Clinician Unavailable MARYSOL PABON Attending Clinician Unavailable MARYSOL PABON Attending Clinician Unavailable Marysol Pabon DO Attending Clinician [phone] Rhiannon Vizcarra MD Attending Clinician [phone] Dominic Keita MD Attending Clinician [phone] DAVIDSON SUTHERLAND Attending Clinician Unavailable Consuelo BAUER, Elidia Gamble Attending Clinician [phone] EMILIA SNOWDEN Attending Clinician Annia vailable Doctor Unassigned, [place] Attending Clinician U SARA Day Attending Clinician UnavailSARA Dorado Attending Clinician UnavailJewel Forbes MD Attending Clinician [facility] Attending Clinician Unavailable JEWEL CUNHA Attending Clinician Unavaila JENNY Norton Attending Clinician Unavailable JENNY ARRIAGA Attending Clinician Unavailable Dexter Dias MD Attending Clinician [phone] Davidson Sutherland MD Attending Clinician [phone] Pcp-Lab Attending Clinician Unavailable DEXTER DIAS Attending Clinician Unavailable GC_GCBZW_Kadiyala_S Attending Clinician Unavaila ONEIDA Del Rosario Attending Clinician Unavailable DOMINIC KEITA Attending Clinician UnavailHunter Sahni MD Attending Clinician [phone] Ting Grissom MD Attending Clinician [phone] RADIOLOGY Attending Clinician Unavailable DORA NEWMAN Attending Clinician Unavailable Dora Newman NP Attending Clinician [phone] Kath Vences MD Attending Clinician [phone] Pob, [facility] Main Attending Clinician UnavailKATH Grady Attending Clinician Unavailhcris russell Pathology Attending Clinician Unavailable IGOR SAAVEDRA Attending Clinician Unavaila HILARY Ramires Attending Clinician UnavailHILARY Conrad Attending Clinician UnavailIgor pfeiffer Rai, MD Attending Clinician UnaGIGI Dela Cruz Attending Clinician Unavailable Gigi Monroy DO Attending Clinician [phone] Zane Martinez MD Attending Clinician Marycruz VAZQUEZ, Deonte Attending Clinician Unavailable UNKNOWN, ATTENDING Attending Clinician Unavailab SALLY Cash GENE Attending Clinician Unavail able SALLY MITCHELL Attending Clinician Unavail able Salbador Lockwood MD Attending Clinician [phone] SALBADOR LOCKWOOD Attending Clinician Unavailable HALIMA CONNOR Attending Clinician Unavailab Halima Choi DO Attending Clinician [phone] ROBERT NOWAK Attending Clinician Unavail able Patti Hutton Attending Clinician [phone] CRISTO MARTINEZ Attending Clinician Unavail able JEWEL MORAES Attending Clinician UnaKATH Sen Attending Clinician Unav ANGELA Richardson Attending Clinician Unavailab RHIANNON Durant Admitting Clinician Unavailable GC_[email or web address]_Kadiyala_S Admitting Clinician UnavailDOMINIC Peres Admitting Clinician Unavailchris Keita MD, Dominic Admitting Clinician Payers Payer Name Policy Type Policy Number Effective Date Expirati on Date Source [facility] [id number] 2023 [id number] MEDICAID SSI PENDING PENDING 2021 [...] Severe headache Severe headache Disease Active 1998-02 2- 00:00: 00 [facility] Insomnia disorder Insomnia disorder Disease Active 1989-02 0- 00:00: 00 [facility] Anxiety Anxiety Disease Active 9 00:00: 00 [facility] No known active problems No known active problems Disease [facility] Allergies, Adverse Reactions, Alerts Allergy Name Allergy Type Status Severity Reaction(s) Onset Date Inactive Date Treating Clinician Comments Source Sulfa Drugs (Not Checked) Propensi ty to adverse reaction to drug Active 2023-02 0-15 00:00: 00 [facility]ol [facility]i Sulfa Antibiot ics - CLASS Propensi ty to adverse reaction to drug Active 5- 00:00: 00 Robert Arnol Cali Sulfa (Sulfona mide Antibiot ics) Propensi ty to adverse reaction s Active Hives 4-24 00:00: 00 [facility] SULFA (SULFONA MIDE ANTIBIOT ICS) Drug Class Active Hives 4-24 00:00: 00 [facility] Social History Social Habit Start Date Stop Date Quantity Comments Source Gender identity [facility] Sexual orientation U [facility] History of Social function 2023-09-03 00:00:00 2023-09-03 00:00:00 [facility] Exposure to SARS-CoV-2 (event) 2022-02-05 00:00:00 2022-02-15 08:57:00 Not sure [facility] Tobacco use and exposure 2021-08-24 00:00:00 2021-08-24 00:00:00 Smokeless tobacco non-user [facility] Sex assigned at 1975 00:00:00 1975 00:00:00 [facility] Smoking Status Start Date Stop Date Source Never smoked tobacco [facility] Medications Ordered Medication Name Filled Medication Name Start Date Stop Date Current Medication? Ordering Clinician Indication Dosage Frequency Signature (SIG) Comments Components Source Venofer 200 mg iron/10 mL intravenous solution 2023-02 1- 00:00: 00 Yes 10mg iron/10 mL Robert Cali busPIRone 30 mg tablet 2023-02 00:00: 00 Yes [id number] TAKE 1 TABLET BY MOUTH EVERY MORNING AND TAKE ONE TABLET BY MOUTH EVERY EVENING [facility] DULoxetine 60 mg capsule 2023-02 00:00: 00 Yes [id number] TAKE 1 CAPSULE BY MOUTH 2 TIMES A DAY ( EVERY MORNING AND EVERY EVENING ) [facility] ibuprofen 800 mg tablet 2023-02 00:00: 00 Yes 1mg Robert Cali TRAZODONE 50 mg tablet 2023-02 00:00: 00 Yes [id number] TAKE 1 AND 1/2 TABLET BY MOUTH AT BEDTIME [facility] ibuprofen 800 mg tablet 2023-02 00:00: 00 Yes 1mg Robert Cali Vitamin D3 25 mcg (1,000 unit) tablet 2023-02 00:00: 00 Yes 1(1,000 unit) Robert Cali diclofenac sodium 75 mg tablet,mikal yed release 2023-02 0 00:00: 00 Yes 1mg Robert Cali lithium carbonate CR 450 mg SR tablet 2023-02 00:00: 00 Yes [id number] TAKE TWO TABLETS BY MOUTH AT BEDTIME [facility] clonazePAM 1 mg tablet 11-09 00:00: 00 Yes [id number] TAKE 1/2 TO 1 TABLET BY MOUTH ONCE DAILY NEEDED FOR SEVERE ANXIETY [facility] LAMOTRIGINE 100 mg tablet 11-09 00:00: 00 Yes [id number] TAKE 1 TABLET BY MOUTH 2 TIMES A DAY (MORNING AND EVENING ) TELL DOCTOR IF YOU MISSED 4 OR MORE DAYS OF THIS MEDICATION , WILL NEED TO START AT LOWER DOSE [facility] lithium carbonate CR 450 mg SR tablet 904 00:00: 00 11-14 00:00 :00 No [id number] 900mg Take 2 tablets by mouth at bedtime. [facility] traZODone 50 mg tablet 8-07 00:00: 00 12-10 00:00 :00 No [id number] 75mg Take 1.5 tablets by mouth at bedtime for 90 days. [facility] busPIRone 30 mg tablet 09-02 00:00: 00 01-07 00:00 :00 No [id number] 30mg Take 1 tablet by mouth in the morning and 1 tablet in the evening. [facility] DULoxetine 60 mg capsule 09-02 00:00: 00 01-07 00:00 :00 No [id number] 60mg Take 1 capsule by mouth in the morning and 1 capsule in the evening. Follow up for refills [facility] clonazePAM (KLONOPIN) 1 mg tablet 09-02 00:00: 00 11-09 00:00 :00 No [id number] 1mg Take 1 tablet by mouth once daily as needed for Other (severe anxiety). Take 0.5mg to 1mg as needed for severe anxiety [facility] lamoTRIgine 100 mg tablet 09-02 00:00: 00 11-09 00:00 :00 No [id number] 100mg Take 1 tablet by mouth in the morning and 1 tablet in the evening. Let your Dr know if you have missed 4 or more days of this medication , we will need to start at a lower dose [facility] traZODone 50 mg tablet 08-27 00:00: 00 09-18 00:00 :00 No [id number] 50mg Take 1 tablet by mouth at bedtime. May cut tablet in half. Follow up for refills [facility] busPIRone 10 mg tablet 08-27 00:00: 00 09-02 00:00 :00 No [id number] 20mg Take 2 tablets by mouth in the morning and 2 tablets in the evening. Follow up for refills [facility] ferric derisomalto se (MONOFERRIC ) 100 mg iron/mL Soln 08-07 00:00: 00 08-08 04:59 :00 No [id number] 500mg Inject 500 mg intravenou sly once now for 1 dose. [facility] clonazePAM 1 mg tablet 08-01 00:00: 00 09-02 00:00 :00 No [id number] Take half to 1 tablet by mouth once daily as needed for extreme anxiety. Attempt to minimize use. Follow-up for continued refills. [facility] lithium carbonate CR 450 mg SR tablet 07-30 00:00: 00 10-16 00:00 :00 No [id number] 900mg Take 2 tablets by mouth at bedtime. [facility] omeprazole 40 mg capsule 07-25 00:00: 00 07-21 04:59 :00 No [id number] 40mg Take 1 capsule by mouth in the morning and 1 capsule in the evening. Take with meals. Do all this for 360 days. [facility] sucralfate 1 gram tablet 07-25 00:00: 00 10-24 04:59 :00 No [id number] 1g Take 1 tablet by mouth before meals and at bedtime for 90 days. [facility] traZODone 50 mg tablet 07-18 00:00: 00 08-26 00:00 :00 No [id number] 50mg Take 1 tablet by mouth at bedtime. May cut tablet in half. Follow up for refills [facility] DULoxetine 60 mg capsule 06-21 00:00: 00 09-02 00:00 :00 No [id number] 60mg Take 1 capsule by mouth in the morning and 1 capsule in the evening. Follow up for refills [facility] busPIRone 10 mg tablet 06-21 00:00: 00 08-27 00:00 :00 No [id number] 20mg Take 2 tablets by mouth in the morning and 2 tablets in the evening. Follow up for refills [facility] traZODone 50 mg tablet 06-21 00:00: 00 07-18 00:00 :00 No [id number] 50mg Take 1 tablet by mouth at bedtime. May cut tablet in half. Follow up for refills [facility] clonazePAM 1 mg tablet 06-12 00:00: 00 07-30 00:00 :00 No [id number] Take half to 1 tablet by mouth once daily as needed for extreme anxiety. Attempt to minimize use. Follow-up for continued refills. [facility] iopamidol (ISOVUE 370-500 mL) injection 80 mL 06-07 02:57: 00 06-07 02:45 :00 No [id number] 80mL 80 mL, Intravenou s, ONCE, 1 dose, On Sun06/07/23 at 2200, Routine [facility] NaCl 0.9% (NS) injection 5 mL 06-07 02:36: 00 Yes 5mL 5 mL, Slow IV Push, PRN - SEE INSTRUCTIO NS, Starting on Denise 06/07/23 at 2136, Until Discontinu ed, 10 mL [facility] traZODone 50 mg tablet 05-22 00:00: 00 06-21 00:00 :00 No [id number] 50mg Take 1 tablet by mouth at bedtime. May cut tablet in half. [facility] DULoxetine 60 mg capsule 05-22 00:00: 00 06-21 00:00 :00 No [id number] 60mg Take 1 capsule by mouth in the morning and 1 capsule in the evening. [facility] busPIRone 10 mg tablet 05-07 00:00: 00 06-21 00:00 :00 No [id number] 20mg Take 2 tablets by mouth in the morning and 2 tablets in the evening. [facility] traZODone 50 mg tablet 04-24 00:00: 00 05-22 00:00 :00 No [id number] 50mg Take 1 tablet by mouth at bedtime. May cut tablet in half. [facility] DULoxetine 60 mg capsule 04-24 00:00: 00 05-22 00:00 :00 No [id number] 60mg Take 1 capsule by mouth in the morning and 1 capsule in the evening. [facility] DULoxetine 60 mg capsule 1-24 00:00: 00 04-23 00:00 :00 No [id number] 60mg Take 1 capsule by mouth in [...] 2022-02 00:00: 00 09-02 00:00 :00 No [id number] 100mg Take 1 tablet by mouth in the morning and 1 tablet in the evening. [facility] lithium carbonate CR 450 mg SR tablet 2022-02 00:00: 00 07-29 00:00 :00 No [id number] 900mg Take 2 tablets by mouth at bedtime. [facility] clonazePAM 1 mg tablet 2022-02 00:00: 00 06-11 00:00 :00 No [id number] Take half to 1 tablet by mouth once daily as needed for extreme anxiety. Attempt to minimize use. [facility] busPIRone 10 mg tablet 2022-02 00:00: 00 05-07 00:00 :00 No [id number] 20mg Take 2 tablets by mouth in the morning and 2 tablets in the evening. [facility] traZODone 50 mg tablet 2022-02 00:00: 00 04-22 00:00 :00 No [id number] 50mg Take 1 tablet by mouth at bedtime. May cut tablet in half. [facility] DULoxetine 60 mg capsule 2022-02 00:00: 00 03-07 00:00 :00 No [id number] 60mg Take 1 capsule by mouth in the morning and 1 capsule in the evening. [facility] TAKE 1 TABLET EVERY 4 HOURS NEEDED. 2022-02 00:00: 00 06-12 00:00 :00 No 10 Robert Cali busPIRone 15 mg tablet 2022-02 00:00: 00 01-22 00:00 :00 No [id number] 15mg Take 1 tablet by mouth in the morning and 1 tablet in the evening. [facility] lithium carbonate CR 450 mg SR tablet 2022-02 00:00: 00 01-22 00:00 :00 No [id number] 900mg Take 2 tablets by mouth at bedtime. [facility] traZODone 50 mg tablet 2022-02 00:00: 00 01-22 00:00 :00 No [id number] 50mg Take 1 tablet by mouth at bedtime. May cut tablet in half. [facility] DULoxetine 60 mg capsule 2022-02 00:00: 00 01-22 00:00 :00 No [id number] 60mg Take 1 capsule by mouth in the morning and 1 capsule in the evening. [facility] lamoTRIgine 100 mg tablet 2022-02 00:00: 00 01-22 00:00 :00 No [id number] 100mg Take 1 tablet by mouth in the morning and 1 tablet in the evening. [facility] clonazePAM 1 mg tablet 2022-02 00:00: 00 01-22 00:00 :00 No [id number] Take 1 tablet by mouth once daily as needed for extreme anxiety. Attempt to minimize use. [facility] busPIRone 15 mg tablet 2022-02 00:00: 00 12-20 00:00 :00 No [id number] 15mg Take 1 tablet by mouth in the morning and 1 tablet in the evening. [facility] lithium carbonate CR 450 mg SR tablet 2022-02 00:00: 00 12-20 00:00 :00 No [id number] 900mg Take 2 tablets by mouth at bedtime. [facility] traZODone 50 mg tablet 2022-02 00:00: 00 12-20 00:00 :00 No [id number] 50mg Take 1 tablet by mouth at bedtime. May cut tablet in half. [facility] TAKE 2 TABLETS ONCE A DAY BY MOUTH 2022-02 00:00: 00 06-12 00:00 :00 No 200 Robert [facility] DULoxetine 60 mg capsule 2022-02 00:00: 00 12-20 00:00 :00 No [id number] 60mg Take 1 capsule by mouth in [...] 1 dose, On Sun11/03/22 at 1145, [facility] butalbital- acetaminoph en-caff (ESGIC) 50-325-40 mg tablet 1 tablet 11-03 16:00: 00 11-03 16:21 :00 No 1{tbl} 1 tablet, Oral, ONCE, 1 dose, On Sun11/03/22 at 1100, [facility] dexamethaso ne sod phos PF injection 10 mg 11-03 16:00: 00 11-03 16:27 :00 No 10mg 10 mg, Slow IV Push, ONCE, 1 dose, On Sun11/03/22 at 1100, 1 mL [facility] metoclopram chelo HCl (REGLAN) injection 10 mg 11-03 16:00: 00 11-03 16:28 :00 No 10mg 10 mg, Slow IV Push, ONCE, 1 dose, On Sun11/03/22 at 1100, [facility] diphenhydrA MINE (BENADRYL) injection 25 mg 11-03 16:00: 00 11-03 16:30 :00 No 25mg 25 mg, Slow IV Push, ONCE, 1 dose, On Sun11/03/22 at 1100, STAT [facility] atorvastati n 10 mg tablet 11-03 10:48: 00 11-03 00:00 :00 No 10mg Take 10 mg by mouth at bedtime. [facility] butalbital- acetaminoph en-caff 50-325-40 mg tablet 11-03 00:00: 00 Yes [id number] 1{tbl} Take 1 tablet by mouth every 6 (six) hours as needed for Pain (scale 7-10) or Pain (scale 4-6) for up to 12 doses. [facility] peg-electro lyte soln 236-22.74-6 .74 -5.86 gram solution 10-19 00:00: 00 11-03 00:00 :00 No [id number] Take as directed before colonoscop y [facility] TAKE 1 TABLET DAILY. 8-31 00:00: 00 06-12 00:00 :00 No 40 Robert Cali busPIRone 15 mg tablet - 00:00: 00 12-13 00:00 :00 No [id number] 15mg Take 1 tablet by mouth in the morning and 1 tablet in the evening. [facility] clonazePAM 1 mg tablet 09-28 00:00: 00 12-20 00:00 :00 No [id number] Take 1 tablet by mouth twice daily as needed for anxiety. [facility] DULoxetine 60 mg capsule 09-26 00:00: 00 11-22 00:00 :00 No [id number] 60mg Take 1 capsule by mouth in the morning and 1 capsule in the evening. [facility] lamoTRIgine 100 mg tablet 09-13 00:00: 00 12-20 00:00 :00 No [id number] 100mg Take 1 tablet by mouth in the morning and 1 tablet in the evening. [facility] lithium carbonate CR 450 mg SR tablet 09-13 00:00: 00 11-28 00:00 :00 No [id number] 900mg Take 2 tablets by mouth at bedtime. [facility] busPIRone 10 mg tablet 8- 00:00: 00 10-04 00:00 :00 No [id number] 10mg Take 1 tablet by mouth in the morning and 1 tablet in the evening. [facility] clonazePAM 1 mg tablet 7-19 00:00: 00 09-25 00:00 :00 No [id number] Take 1 tablet by mouth twice daily as needed for anxiety. [facility] TAKE 2 TABLETS ONCE A DAY BY MOUTH 7-13 00:00: 00 06-12 00:00 :00 No 200 Robert Cali FUROSEMIDE ORAL 6-14 09:33: 26 07-26 00:00 :00 No 40mg Take 40 mg by mouth daily. [facility] traZODone 50 mg tablet 07-26 00:00: 00 11-28 00:00 :00 No [id number] 50mg Take 1 tablet by mouth at bedtime. May cut tablet in half. [facility] DULoxetine 60 mg capsule 07-26 00:00: 00 09-25 00:00 :00 No [id number] 60mg Take 1 capsule by mouth in the morning and 1 capsule in the evening. [facility] lamoTRIgine 100 mg tablet 07-26 00:00: 00 09-13 00:00 :00 No [id number] 100mg Take 1 tablet by mouth in the morning and 1 tablet in the evening. [facility] lithium carbonate CR 450 mg SR tablet 07-26 00:00: 00 09-13 00:00 :00 No [id number] 900mg Take 2 tablets by mouth at bedtime. [facility] busPIRone 10 mg tablet 07-26 00:00: 00 09-13 00:00 :00 No [id number] 10mg Take 1 tablet by mouth in the morning and 1 tablet in the evening. [facility] INHALE 2 PUFFS EVERY 4-6 HOURS NEEDED. 07-22 00:00: 00 06-12 00:00 :00 No [id number] Robert Arnol Cali lamoTRIgine 100 mg tablet 07-19 00:00: 00 07-26 00:00 :00 No [id number] 100mg Take 1 tablet by mouth in the morning and 1 tablet in the evening. [facility] clonazePAM 1 mg tablet 24 00:00: 00 08-29 00:00 :00 No [id number] Take 1 tablet by mouth twice daily as needed for anxiety. [facility] TAKE 1 CAPSULE 3 TIMES DAILY WITH MEALS. 16 00:00: 00 06-12 00:00 :00 No 120 [facility] Arnol [facility] DULoxetine 60 mg capsule 09 00:00: 00 07-26 00:00 :00 No [id number] 60mg Take 1 capsule by mouth in the morning and 1 capsule in the evening. [facility] lithium carbonate CR 450 mg SR tablet 06-20 00:00: 00 07-26 00:00 :00 No [id number] 900mg Take 2 tablets by mouth at bedtime. [facility] TAKE 1 TABLET TWICE DAILY. 06-15 00:00: 00 06-12 00:00 :00 No 75 [facility]i TAKE 1 TABLET BY MOUTH DAILY 05-23 00:00: 00 06-12 00:00 :00 No 200 Robert Cali TAKE 1 CAPSULE 3 TIMES DAILY WITH MEALS. 05-23 00:00: 00 06-12 00:00 :00 No 120 Robert Cali TAKE 1 TABLET EVERY 4 HOURS NEEDED. 05-23 00:00: 00 06-12 00:00 :00 No 10 [facility] traZODone 50 mg tablet 04-20 00:00: 00 07-26 00:00 :00 No [id number] 50mg Take 1 tablet by mouth at bedtime. May cut tablet in half. [facility] lamoTRIgine 100 mg tablet 04-20 00:00: 00 07-19 00:00 :00 No [id number] 100mg Take 1 tablet by mouth in the morning and 1 tablet in the evening. [facility] clonazePAM 1 mg tablet 04-20 00:00: 00 07-05 00:00 :00 No [id number] Take 1 tablet by mouth twice daily as needed for anxiety. [facility] DULoxetine 60 mg capsule 04-20 00:00: 00 06-17 00:00 :00 No [id number] 60mg Take 1 capsule by mouth in the morning and 1 capsule in the evening. [facility] lithium carbonate CR 450 mg SR tablet 04-20 00:00: 00 06-17 00:00 :00 No [id number] 900mg Take 2 tablets by mouth at bedtime. [facility] lamoTRIgine 100 mg tablet 03-09 00:00: 00 04-20 00:00 :00 No [id number] 100mg Take 1 tablet by mouth in the morning and 1 tablet in the evening. [facility] traZODone 50 mg tablet 02-15 00:00: 00 04-20 00:00 :00 No [id number] 50mg Take 1 tablet by mouth at bedtime. May cut tablet in half. [facility] lithium carbonate CR 450 mg SR tablet 02-15 00:00: 00 04-20 00:00 :00 No [id number] 900mg Take 2 tablets by mouth at bedtime. [facility] DULoxetine 60 mg capsule 02-15 00:00: 00 04-19 00:00 :00 No [id number] 60mg Take 1 capsule by mouth in the morning and 1 capsule in the evening. [facility] clonazePAM 1 mg tablet 02-15 00:00: 00 04-19 00:00 :00 No [id number] Take 1 tablet by mouth twice daily as needed for anxiety. [facility] lamoTRIgine 100 mg tablet 02-15 00:00: 00 03-09 00:00 :00 No [id number] 100mg Take 1 tablet by mouth in the morning and 1 tablet in the evening. [facility] lithium 600 mg capsule 02-15 00:00: 00 02-15 00:00 :00 No [id number] 600mg Take 1 capsule by mouth in the morning and 1 capsule in the evening. [facility] DULoxetine 60 mg capsule 2021-02 2-28 00:00: 00 02-15 00:00 :00 No [id number] 60mg Take 1 capsule by mouth in the morning and 1 capsule in the evening. [facility] lamoTRIgine 100 mg tablet 2021-02 2-22 00:00: 00 02-15 00:00 :00 No [id number] 100mg Take 1 tablet by mouth in the morning and 1 tablet in the evening. [facility] traZODone 50 mg tablet 2021-02 00:00: 00 02-15 00:00 :00 No [id number] 50mg Take 1 tablet by mouth at bedtime. May cut tablet in half. [facility] lamoTRIgine 100 mg tablet 2021-02 00:00: 00 02-02 00:00 :00 No [id number] 100mg Take 1 tablet by mouth in the morning and 1 tablet in the evening. [facility] clonazePAM 1 mg tablet 2021-02 00:00: 00 02-15 00:00 :00 No [id number] Take 1 tablet by mouth twice daily as needed for anxiety. [facility] DULoxetine 60 mg capsule 2021-02 00:00: 00 02-07 00:00 :00 No [id number] 60mg Take 1 capsule by mouth in the morning and 1 capsule in the evening. [facility] traZODone 50 mg tablet 2021-02 00:00: 00 01-11 00:00 :00 No [id number] 50mg Take 1 tablet by mouth at bedtime. May cut tablet in half. [facility] DULoxetine 60 mg capsule 2021-02 025 00:00: 00 01-09 00:00 :00 No [id number] 60mg Take 1 capsule by mouth in the morning and 1 capsule in the evening. [facility] lithium 600 mg capsule 2021-02 0-20 00:00: 00 02-15 00:00 :00 No [id number] 600mg Take 1 capsule by mouth in the morning and 1 capsule in the evening. [facility] lamoTRIgine 25 mg tablet 2021-02 0-20 00:00: 00 01-11 00:00 :00 No [id number] 50mg Take 2 tablets by mouth in the morning and 2 tablets in the evening. [facility] clonazePAM 1 mg tablet 2021-02 0-20 00:00: 00 01-09 00:00 :00 No [id number] Take 1 tablet by mouth twice daily as needed for anxiety. [facility] lamoTRIgine 25 mg tablet 0 8-26 00:00: 00 11-30 00:00 :00 No [id number] 50mg Take 2 tablets by mouth in the morning and 2 tablets in the evening. [facility] clonazePAM 1 mg tablet 0 8-25 00:00: 00 11-30 00:00 :00 No [id number] Take no more than 1 mg twice daily as needed for anxiety [facility] lithium 600 mg capsule 0 8-25 00:00: 00 11-30 00:00 :00 No [id number] 600mg Take 1 capsule by mouth in the morning and 1 capsule in the evening. [facility] Lamotrigine 50 mg tablet 8-25 00:00: 00 10-07 00:00 :00 No [id number] 50mg Take 1 tablet by mouth in the morning and 1 tablet in the evening. [facility] Lamotrigine 50 mg tablet 0 8-11 00:00: 00 10-06 00:00 :00 No [id number] 50mg Take 1 tablet by mouth in the morning and 1 tablet in the evening. [facility] DULoxetine 60 mg capsule 0 7-27 00:00: 00 12-05 00:00 :00 No [id number] 60mg Take 1 capsule by mouth in the morning and 1 capsule in the evening. [facility] Lamotrigine 50 mg tablet 2021-0 7-18 00:00: 00 09-22 00:00 :00 No [id number] 50mg Take 1 tablet by mouth in the morning and 1 tablet in the evening. [facility] lithium 600 mg capsule 2021-0 7-13 00:00: 00 10-06 00:00 :00 No [id number] 600mg Take 1 capsule by mouth in the morning and 1 capsule in the evening. [facility] DULoxetine 60 mg capsule 2021-0 6-28 00:00: 00 Yes [id number] 60mg Take 1 capsule by mouth 2 (two) times daily. [facility] traZODone 50 mg tablet 08-09 00:00: 00 01-02 00:00 :00 No [id number] 50mg Take 1 tablet by mouth at bedtime. May cut tablet in half. [facility] clonazePAM 1 mg tablet 08-09 00:00: 00 10-06 00:00 :00 No [id number] Take no more than 1 mg twice daily as needed for anxiety [facility] CYANOCOBALA M INJ [id number] [employer] 06-04 00:00: 00 Yes [facility]i DULoxetine 60 mg capsule 05-26 00:00: 00 08-09 00:00 :00 No [id number] 60mg Take 1 capsule by mouth 2 (two) times daily. [facility] traZODone 50 mg tablet 05-26 00:00: 00 08-09 00:00 :00 No [id number] 50mg Take 1 tablet by mouth at bedtime. May cut tablet in half. [facility] vitamin B-12 1,000 mcg tablet 05-23 00:00: 00 11-03 00:00 :00 No [id number] 1000ug Take 1 tablet by mouth daily. [facility] cyanocobala min 1,000 mcg/mL injection 05-23 00:00: 00 11-03 00:00 :00 No [id number] 1000ug 1 mL by Intramuscu lar route weekly. [facility] losartan potassium (LOSARTAN ORAL) 05-17 09:24: 36 Yes 20mg Take 20 mg by mouth. [facility] FUROSEMIDE ORAL 05-17 09:24: 36 Yes 40mg Take 40 mg by mouth daily. [facility] magnesium gluconate 200 mg tablet 05-17 00:00: 00 Yes [id number] 400mg Take 2 tablets by mouth 2 (two) times daily. [facility] gabapentin 300 mg capsule 05-17 00:00: 00 11-03 00:00 :00 No [id number] 300mg Take 1 capsule by mouth 3 (three) times daily. [facility] rizatriptan 5 mg disintegrat ing tablet 05-17 00:00: 00 11-03 00:00 :00 No [id number] 5mg Take 1 tablet by mouth as needed for Migraine (Take 5mg at the beginning of the headache can repeat 2h after if headaches persists). May repeat in 2 hours if needed [facility] magnesium gluconate 200 mg tablet 05-17 00:00: 00 11-03 00:00 :00 No [id number] 400mg Take 2 tablets by mouth 2 (two) times daily. [facility] artificial tears,hypro mellose, 0.5 % ophthalmic drops 05 00:00: 00 06-22 00:00 :00 No [id number] 1[drp] Place 1 Drop in left eye as needed for Dry eyes. [facility] Dose Unknown 2021-0 4-04 00:00: 00 Yes Robert F Viraj Dose Unknown 2-0 4-04 00:00: 00 Yes Robert F Viraj Dose Unknown 2-0 4-04 00:00: 00 Yes Robert F Viraj Dose Unknown 2-0 4-04 00:00: 00 Yes Robert F Viraj Dose Unknown 2-0 4-04 00:00: 00 Yes Robert F Viraj [...] 00 Yes Robert F Viraj Dose Unknown 4- 00:00: 00 Yes Robert F Viraj Dose Unknown 4- 00:00: 00 Yes Robert F Viraj Dose Unknown 4- 00:00: 00 Yes Robert F Viraj Dose Unknown 4- 00:00: 00 Yes Robert F Viraj clonazePAM 1 mg tablet 331 00:00: 00 08-09 00:00 :00 No [id number] Take no more than 1 mg twice daily as needed for anxiety [facility] lithium 600 mg capsule 330 00:00: 00 06-12 00:00 :00 No [id number] 600mg Take 1 capsule by mouth 2 (two) times daily. [facility] ondansetron (ZOFRAN ODT) 4 mg disintegrat ing tablet 09-02 00:00: 00 11-03 00:00 :00 No [id number] 4mg Take 1 tablet by mouth every 8 (eight) hours as needed for Nausea and Vomiting (N/V). [facility] butalbital- acetaminoph en-caff 50-325-40 mg tablet 09-02 00:00: 00 06-22 00:00 :00 No [id number] 1{tbl} Take 1 tablet by mouth every 6 (six) hours as needed for Pain (scale 7-10). [facility] Dose Unknown 6 00:00: 00 Yes Robert F Viraj Dose Unknown 6- 00:00: 00 Yes Robert F Viraj Dose Unknown 6- 00:00: 00 Yes Robert F Viraj Dose Unknown 07-02 00:00: 00 Yes Robert F Viraj Dose Unknown 06-30 00:00: 00 Yes Robert F Viraj Dose Unknown - 00:00: 00 Yes Robert F Viraj Dose Unknown - 00:00: 00 Yes Robert F Viraj Dose Unknown - 00:00: 00 Yes Robert F Viraj Dose Unknown - 00:00: 00 Yes Robert Cali Dose Unknown 0 06-30 00:00: 00 Yes Robert Cali Dose Unknown 0 06-30 00:00: 00 Yes Robert Cali Dose Unknown 0 06-30 00:00: 00 Yes Robert Cali Dose Unknown 0 06-30 00:00: 00 Yes Robert Cali Dose Unknown 0 06-30 00:00: 00 Yes Robert Cali Dose Unknown 0 06-30 00:00: 00 Yes Robert Cali Dose Unknown 0 06-30 00:00: 00 Yes Robert Cali Dose Unknown 06-09 00:00: 00 Yes Robert Cail Dose Unknown 06-09 00:00: 00 Yes Robert Cali Dose Unknown 06-09 00:00: 00 Yes Robert Cali allopurinoL 100 mg tablet 08-05 13:17: 52 [...] 6+ MO (FLUZONE/FLULAVAL/F LUARIX) 2020-11-13 00:00:00 Completed [facility] Influenza Virus Vaccine Quad .5 mL IM 6+ MO (FLUZONE/FLULAVAL/F LUARIX) 2020-11-13 00:00:00 Completed influenza, injectable influenza, injectable 2020-11-13 00:00:00 Completed Robert Cali TDAP 2020-09-11 00:00:00 Completed [facility] TDAP 2020-09-11 00:00:00 Completed [facility] Tdap Tdap 2020-09-11 00:00:00 Completed Robert Cali SARS-COV-2 COVID-19 VACCINE - (MODERNA) 2020-04-24 00:00:00 Completed [facility] SARS-COV-2 COVID-19 VACCINE - (MODERNA) 2020-04-24 00:00:00 Completed Moderna COVID-19 Vaccine Moderna COVID-19 Vaccine 2020-04-24 00:00:00 Completed Robert Cali SARS-COV-2 COVID-19 VACCINE - (MODERNA) 2020-03-19 00:00:00 Completed [facility] SARS-COV-2 COVID-19 VACCINE - (MODERNA) 2020-03-19 00:00:00 Completed Moderna COVID-19 Vaccine Moderna COVID-19 Vaccine 2020-03-19 00:00:00 Completed Robert Cali TDAP Unknown Completed [facility] Influenza Virus Vaccine Quad .5 mL IM 6+ MO (FLUZONE/FLULAVAL/F LUARIX) Unknown Completed [facility] SARS-COV-2 COVID-19 VACCINE - (MODERNA) Unknown Completed [facility] TDAP Unknown Completed [facility] Influenza Virus Vaccine Quad .5 mL IM 6+ MO (FLUZONE/FLULAVAL/F LUARIX) Unknown Completed [facility] SARS-COV-2 COVID-19 VACCINE - (MODERNA) Unknown Completed [facility] TDAP Unknown Completed [facility] Influenza Virus Vaccine Quad .5 mL IM 6+ MO (FLUZONE/FLULAVAL/F LUARIX) Unknown Completed [facility] SARS-COV-2 COVID-19 VACCINE - (MODERNA) Unknown Completed [facility] TDAP Unknown Completed [facility] Influenza Virus Vaccine Quad .5 mL IM 6+ MO (FLUZONE/FLULAVAL/F LUARIX) Unknown Completed [facility] SARS-COV-2 COVID-19 VACCINE - (MODERNA) Unknown Completed [facility] TDAP Unknown Completed [facility] Influenza Virus Vaccine Quad .5 mL IM 6+ MO (FLUZONE/FLULAVAL/F LUARIX) Unknown Completed [facility] SARS-COV-2 COVID-19 VACCINE - (MODERNA) [facility] Influenza Virus Vaccine Quad .5 mL IM 6+ MO (FLUZONE/FLULAVAL/F LUARIX) Unknown Completed [facility] SARS-COV-2 COVID-19 VACCINE - (MODERNA) Unknown Completed [facility] TDAP Unknown Completed [facility] Influenza Virus Vaccine Quad .5 mL IM 6+ MO (FLUZONE/FLULAVAL/F LUARIX) Unknown Completed [facility] SARS-COV-2 COVID-19 VACCINE - (MODERNA) Unknown Completed [facility] TDAP Unknown Completed [facility] Influenza Virus Vaccine Quad .5 mL IM 6+ MO (FLUZONE/FLULAVAL/F LUARIX) Unknown Completed [facility] SARS-COV-2 COVID-19 VACCINE - (MODERNA) Unknown Completed [facility] TDAP Unknown Completed [facility] Influenza Virus Vaccine Quad .5 mL IM 6+ MO (FLUZONE/FLULAVAL/F LUARIX) Unknown Completed [facility] SARS-COV-2 COVID-19 VACCINE - (MODERNA) Unknown Completed [facility] TDAP Unknown Completed [facility] Influenza Virus Vaccine Quad .5 mL IM 6+ MO (FLUZONE/FLULAVAL/F LUARIX) Unknown Completed [facility] SARS-COV-2 COVID-19 VACCINE - (MODERNA) Unknown Completed [facility] TDAP Unknown Completed [facility] Influenza Virus Vaccine Quad .5 mL IM 6+ MO (FLUZONE/FLULAVAL/F LUARIX) Unknown Completed [facility] SARS-COV-2 COVID-19 VACCINE - (MODERNA) Unknown Completed [facility] TDAP Unknown Completed [facility] Influenza Virus Vaccine Quad .5 mL IM 6+ MO (FLUZONE/FLULAVAL/F LUARIX) Unknown Completed [facility] SARS-COV-2 COVID-19 VACCINE - (MODERNA) Unknown [facility] Influenza Virus Vaccine Quad .5 mL IM 6+ MO (FLUZONE/FLULAVAL/F LUARIX) Unknown Completed [facility] SARS-COV-2 COVID-19 VACCINE - (MODERNA) Unknown Completed [facility] TDAP Unknown Completed [facility] Influenza Virus Vaccine Quad .5 mL IM 6+ MO (FLUZONE/FLULAVAL/F LUARIX) Unknown Completed [facility] SARS-COV-2 COVID-19 VACCINE - (MODERNA) Unknown Completed [facility] TDAP Unknown Completed [facility] Influenza Virus Vaccine Quad .5 mL IM 6+ MO (FLUZONE/FLULAVAL/F LUARIX) Unknown Completed [facility] SARS-COV-2 COVID-19 VACCINE - (MODERNA) Unknown Completed [facility] TDAP Unknown Completed [facility] Influenza Virus Vaccine Quad .5 mL IM 6+ MO (FLUZONE/FLULAVAL/F LUARIX) Unknown Completed [facility] SARS-COV-2 COVID-19 VACCINE - (MODERNA) Unknown Completed [facility] TDAP Unknown Completed [facility] Influenza Virus Vaccine Quad .5 mL IM 6+ MO (FLUZONE/FLULAVAL/F LUARIX) Unknown Completed [facility] SARS-COV-2 COVID-19 VACCINE - (MODERNA) Unknown Completed [facility] TDAP Unknown Completed [facility] Influenza Virus Vaccine Quad .5 mL IM 6+ MO (FLUZONE/FLULAVAL/F LUARIX) Unknown Completed [facility] SARS-COV-2 COVID-19 VACCINE - (MODERNA) Unknown Completed [facility] TDAP Unknown Completed [facility] Influenza Virus Vaccine Quad .5 mL IM 6+ MO (FLUZONE/FLULAVAL/F LUARIX) Unknown Completed [facility] SARS-COV-2 COVID-19 VACCINE - (MODERNA) Unknown Completed [facility] TDAP Unknown Completed [facility] Influenza Virus Vaccine Quad .5 mL IM 6+ MO (FLUZONE/FLULAVAL/F LUARIX) Unknown Completed [facility] SARS-COV-2 COVID-19 VACCINE - (MODERNA) Unknown Completed [facility] TDAP Unknown Completed [facility] Influenza Virus Vaccine Quad .5 mL IM 6+ MO (FLUZONE/FLULAVAL/F LUARIX) Unknown Completed [facility] SARS-COV-2 COVID-19 VACCINE - (MODERNA) Unknown Completed [facility] TDAP Unknown Completed [facility] Influenza Virus Vaccine Quad .5 mL IM 6+ MO (FLUZONE/FLULAVAL/F LUARIX) Unknown Completed [facility] TDAP Unknown Completed [facility] Influenza Virus Vaccine Quad .5 mL IM 6+ MO (FLUZONE/FLULAVAL/F LUARIX) Unknown Completed [facility] SARS-COV-2 COVID-19 VACCINE - (MODERNA) Unknown Completed [facility] TDAP Unknown Completed [facility] Influenza Virus Vaccine Quad .5 mL IM 6+ MO (FLUZONE/FLULAVAL/F LUARIX) Unknown Completed [facility] SARS-COV-2 COVID-19 VACCINE - (MODERNA) Unknown Completed [facility] SARS-COV-2 COVID-19 VACCINE - (MODERNA) Unknown Completed [facility] TDAP Unknown Completed [facility] Influenza Virus Vaccine Quad .5 mL IM 6+ MO (FLUZONE/FLULAVAL/F LUARIX) Unknown Completed [facility] SARS-COV-2 COVID-19 VACCINE - (MODERNA) Unknown Completed [facility] TDAP Unknown Completed [facility] Influenza Virus Vaccine Quad .5 mL IM 6+ MO (FLUZONE/FLULAVAL/F LUARIX) Unknown Completed [facility] SARS-COV-2 COVID-19 VACCINE - (MODERNA) Unknown Completed [facility] TDAP Unknown Completed [facility] Influenza Virus Vaccine Quad .5 mL IM 6+ MO (FLUZONE/FLULAVAL/F LUARIX) Unknown Completed [facility] SARS-COV-2 COVID-19 VACCINE - (MODERNA) Unknown Completed [facility] TDAP Unknown Completed [facility] Influenza Virus Vaccine Quad .5 mL IM 6+ MO (FLUZONE/FLULAVAL/F LUARIX) Unknown Completed [facility] SARS-COV-2 COVID-19 VACCINE - (MODERNA) Unknown Completed [facility] TDAP Unknown Completed [facility] Influenza Virus Vaccine Quad .5 mL IM 6+ MO (FLUZONE/FLULAVAL/F LUARIX) Unknown Completed [facility] SARS-COV-2 COVID-19 VACCINE - (MODERNA) Unknown Completed [facility] Vital Signs Vital Name Observation Time Observation Value Comments S ource Systolic blood pressure 2023-07-26 14:17:00 177 mm[Hg] [facility] Diastolic blood pressure 2023-07-26 14:17:00 92 mm[Hg] [facility] Heart rate 2023-07-26 14:17:00 97 /min [facility] Body temperature 2023-07-26 14:17:00 36.39 Verna [facility] Respiratory rate 2023-07-26 14:17:00 18 /min [facility] Body height 2023-07-26 14:17:00 167.6 cm [facility] Body weight 2023-07-26 14:17:00 100.472 kg [facility] BMI 2023-07-26 14:17:00 35.75 kg/m2 [facility] Oxygen saturation in Arterial blood by Pulse oximetry 2023-07-26 14:17:00 97 /min [facility] Systolic blood pressure 2023-06-08 07:00:00 112 mm[Hg] [facility] Diastolic blood pressure 2023-06-08 07:00:00 62 mm[Hg] [facility] Heart rate 2023-06-08 07:00:00 72 /min [facility] Respiratory rate 2023-06-08 07:00:00 20 /min [facility] Oxygen saturation in Arterial blood by Pulse oximetry 2023-06-08 07:00:00 97 /min [facility] Body weight 2023-06-08 02:41:00 108.863 kg [facility] BMI 2023-06-08 02:41:00 38.74 kg/m2 [facility] Body temperature 2023-06-08 02:38:00 36.67 Verna [facility] Body height 2023-06-08 02:34:00 167.6 cm [facility] Systolic blood pressure 2023-02-15 15:53:00 132 mm[Hg] [facility] Diastolic blood pressure 2023-02-15 15:53:00 73 mm[Hg] [facility] Heart rate 2023-02-15 15:53:00 74 /min [facility] Body temperature 2023-02-15 15:53:00 36.44 Verna [facility] Respiratory rate 2023-02-15 15:53:00 16 /min [facility] Body height 2023-02-15 15:53:00 167.6 cm [facility] Body weight 2023-02-15 15:53:00 100.336 kg [facility] BMI 2023-02-15 15:53:00 35.70 kg/m2 [facility] Oxygen saturation in Arterial blood by Pulse oximetry 2023-02-15 15:53:00 100 /min [facility] Systolic blood pressure 2022-11-13 14:08:00 117 mm[Hg] [facility] Diastolic blood pressure 2022-11-13 14:08:00 70 mm[Hg] [facility] Heart rate 2022-11-13 14:08:00 64 /min [facility] Respiratory rate 2022-11-13 14:08:00 12 /min [facility] Oxygen saturation in Arterial blood by Pulse oximetry 2022-11-13 14:08:00 99 /min [facility] Body temperature 2022-11-13 13:38:00 36.39 Verna [facility] Body height 2022-11-13 12:15:00 167.6 cm [facility] Body weight 2022-11-13 12:15:00 95.21 kg [facility] BMI 2022-11-13 12:15:00 33.88 kg/m2 [facility] Systolic blood pressure 2022-11-13 12:15:00 142 mm[Hg] [facility] Diastolic blood pressure 2022-11-13 12:15:00 66 mm[Hg] [facility] Heart rate 2022-11-13 12:15:00 77 /min [facility] Body temperature 2022-11-13 12:15:00 36 Verna [facility] Respiratory rate 2022-11-13 12:15:00 21 /min [facility] Body height 2022-11-13 12:15:00 167.6 cm [facility] Body weight 2022-11-13 12:15:00 95.21 kg [facility] BMI 2022-11-13 12:15:00 33.88 kg/m2 [facility] Oxygen saturation in Arterial blood by Pulse oximetry 2022-11-13 12:15:00 95 /min [facility] Systolic blood pressure 2022-11-03 15:35:00 154 mm[Hg] [facility] Diastolic blood pressure 2022-11-03 15:35:00 86 mm[Hg] [facility] Heart rate 2022-11-03 15:35:00 86 /min [facility] Body temperature 2022-11-03 15:35:00 37 Verna [facility] Respiratory rate 2022-11-03 15:35:00 18 /min [facility] Body height 2022-11-03 15:35:00 167.6 cm [facility] Body weight 2022-11-03 15:35:00 97.523 kg [facility] BMI 2022-11-03 15:35:00 34.70 kg/m2 [facility] Oxygen saturation in Arterial blood by Pulse oximetry 2022-11-03 15:35:00 99 /min [facility] Systolic blood pressure 2022-10-19 12:35:00 159 mm[Hg] Provider Notified [facility] Diastolic blood pressure 2022-10-19 12:35:00 85 mm[Hg] Provider Notified [facility] Heart rate 2022-10-19 12:35:00 94 /min [facility] Body temperature 2022-10-19 12:33:00 36.78 Verna [facility] Respiratory rate 2022-10-19 12:33:00 16 /min [facility] Body height 2022-10-19 12:33:00 167.6 cm [facility] Body weight 2022-10-19 12:33:00 96.616 kg [facility] BMI 2022-10-19 12:33:00 34.38 kg/m2 [facility] Oxygen saturation in Arterial blood by Pulse oximetry 2022-10-19 12:33:00 98 /min [facility] BP Systolic 2024-01-18 13:37:00 137 mm[Hg] Robert Cali BP Diastolic 2024-01-18 13:37:00 80 mm[Hg] Robert Cali Weight Measured 2024-01-18 13:37:00 212.60 pounds Robert Cali Height Measured 2024-01-18 13:37:00 66.00 inches Robert Cali Body Temperature 2024-01-18 13:37:00 98.20 degrees Robert Cali Heart Rate 2024-01-18 13:37:00 57.00 /min Robert Cali Respiratory Rate 2024-01-18 13:37:00 18.00 /min Robert Cali BP Systolic 2024-01-04 16:38:00 143 mm[Hg] Robert Cali BP Diastolic 2024-01-04 16:38:00 93 mm[Hg] Robert Cali Weight Measured 2024-01-04 16:38:00 212.20 pounds Robert Cali Height Measured 2024-01-04 16:38:00 66.00 inches Robert Cali Body Temperature 2024-01-04 16:38:00 97.41 degrees Robert Cali Heart Rate 2024-01-04 16:38:00 105.00 /min Robert Cali Respiratory Rate 2024-01-04 16:38:00 17.00 /min Robert Cali BP Systolic 2023-12-11 16:36:00 130 mm[Hg] Robert Cali BP Diastolic 2023-12-11 16:36:00 74 mm[Hg] Robert Cali Weight Measured 2023-12-11 16:36:00 218.00 pounds Robert Cali Height Measured 2023-12-11 16:36:00 66.00 inches Robert Cali Body Temperature 2023-12-11 16:36:00 98.10 degrees Robert Cali Heart Rate 2023-12-11 16:36:00 87.00 /min Robert Cali Respiratory Rate 2023-12-11 16:36:00 18.00 /min Robert Cali BP Systolic 2023-12-05 13:56:00 169 mm[Hg] Robert Cali BP Diastolic 2023-12-05 13:56:00 92 mm[Hg] Robert Cali Weight Measured 2023-12-05 13:56:00 218.60 pounds Robert Cali Height Measured 2023-12-05 13:56:00 66.00 inches Robert Cali Body Temperature 2023-12-05 13:56:00 98.00 degrees Robert Cali Heart Rate 2023-12-05 13:56:00 92.00 /min Robert Cali Respiratory Rate 2023-12-05 13:56:00 18.00 /min Robert Cali BP Systolic 2023-11-27 08:18:00 168 mm[Hg] Robert Cali BP Diastolic 2023-11-27 08:18:00 93 mm[Hg] Robert Cali Weight Measured 2023-11-27 08:18:00 214.60 pounds Robert Cali Height Measured 2023-11-27 08:18:00 66.00 inches Robert Cali Body Temperature 2023-11-27 08:18:00 97.80 degrees Robert Cali Heart Rate 2023-11-27 08:18:00 88.00 /min Robert Cali Respiratory Rate 2023-11-27 08:18:00 18.00 /min Robert Cali Systolic blood pressure 2023-09-03 14:41:00 131 mm[Hg] [facility] Diastolic blood pressure 2023-09-03 14:41:00 73 mm[Hg] [facility] Heart rate 2023-09-03 14:41:00 93 /min [facility] Respiratory rate 2023-09-03 14:38:00 20 /min [facility] Body height 2023-09-03 14:38:00 167.6 cm [facility] Body weight 2023-09-03 14:38:00 100.2 kg [facility] BMI 2023-09-03 14:38:00 35.65 kg/m2 [facility] Systolic blood pressure 2023-07-26 14:17:00 177 mm[Hg] [facility] Diastolic blood pressure 2023-07-26 14:17:00 92 mm[Hg] [facility] Heart rate 2023-07-26 14:17:00 97 /min [facility] Body temperature 2023-07-26 14:17:00 36.39 Verna [facility] Respiratory rate 2023-07-26 14:17:00 18 /min [facility] Body height 2023-07-26 14:17:00 167.6 cm [facility] Body weight 2023-07-26 14:17:00 100.472 kg [facility] BMI 2023-07-26 14:17:00 35.75 kg/m2 [facility] Oxygen saturation in Arterial blood by Pulse oximetry 2023-07-26 14:17:00 97 /min [facility] Systolic blood pressure 2023-06-08 07:00:00 112 mm[Hg] [facility] Diastolic blood pressure 2023-06-08 07:00:00 62 mm[Hg] [facility] Heart rate 2023-06-08 07:00:00 72 /min [facility] Respiratory rate 2023-06-08 07:00:00 20 /min [facility] Oxygen saturation in Arterial blood by Pulse oximetry 2023-06-08 07:00:00 97 /min [facility] Body weight 2023-06-08 02:41:00 108.863 kg [facility] BMI 2023-06-08 02:41:00 38.74 kg/m2 [facility] Body temperature 2023-06-08 02:38:00 36.67 Verna [facility] Body height 2023-06-08 02:34:00 167.6 cm [facility] BP Systolic 2023-05-22 08:18:00 134 mm[Hg] Robert [...] blood pressure 2023-02-15 15:53:00 132 mm[Hg] [facility] Diastolic blood pressure 2023-02-15 15:53:00 73 mm[Hg] [facility] Heart rate 2023-02-15 15:53:00 74 /min [facility] Body temperature 2023-02-15 15:53:00 36.44 Verna [facility] Respiratory rate 2023-02-15 15:53:00 16 /min [facility] Body height 2023-02-15 15:53:00 167.6 cm [facility] Body weight 2023-02-15 15:53:00 100.336 kg [facility] BMI 2023-02-15 15:53:00 35.70 kg/m2 [facility] Oxygen saturation in Arterial blood by Pulse oximetry 2023-02-15 15:53:00 100 /min [facility] Systolic blood pressure 2023-01-22 15:03:00 144 mm[Hg] [facility] Diastolic blood pressure 2023-01-22 15:03:00 83 mm[Hg] [facility] Heart rate 2023-01-22 15:03:00 97 /min [facility] Respiratory rate 2023-01-22 15:00:00 18 /min [facility] Body height 2023-01-22 15:00:00 167.6 cm [facility] Body weight 2023-01-22 15:00:00 95.2 kg [facility] BMI 2023-01-22 15:00:00 33.88 kg/m2 [facility] BP Systolic 2022-12-20 09:52:00 109 mm[Hg] Robert Cali BP Diastolic 2022-12-20 09:52:00 59 mm[Hg] Robert Cali Weight Measured 2022-12-20 09:52:00 217.00 pounds Robert Cali Height Measured 2022-12-20 09:52:00 66.00 inches Robert Cali Body Temperature 2022-12-20 09:52:00 98.40 degrees Robert Cali Heart Rate 2022-12-20 09:52:00 66.00 /min Robert Cali Respiratory Rate 2022-12-20 09:52:00 Robert Cali Systolic blood pressure 2022-11-13 14:08:00 117 mm[Hg] [facility] Diastolic blood pressure 2022-11-13 14:08:00 70 mm[Hg] [facility] Heart rate 2022-11-13 14:08:00 64 /min [facility] Respiratory rate 2022-11-13 14:08:00 12 /min [facility] [facility] Oxygen saturation in Arterial blood by Pulse oximetry 2022-11-13 14:08:00 99 /min [facility] Body temperature 2022-11-13 13:38:00 36.39 Verna [facility] Body height 2022-11-13 12:15:00 167.6 cm [facility] Body weight 2022-11-13 12:15:00 95.21 kg [facility] BMI 2022-11-13 12:15:00 33.88 kg/m2 [facility] Systolic blood pressure 2022-11-03 15:35:00 154 mm[Hg] [facility] Diastolic blood pressure 2022-11-03 15:35:00 86 mm[Hg] [facility] Heart rate 2022-11-03 15:35:00 86 /min [facility] Body temperature 2022-11-03 15:35:00 37 Verna [facility] Respiratory rate 2022-11-03 15:35:00 18 /min [facility] Body height 2022-11-03 15:35:00 167.6 cm [facility] Body weight 2022-11-03 15:35:00 97.523 kg [facility] BMI 2022-11-03 15:35:00 34.70 kg/m2 [facility] Oxygen saturation in Arterial blood by Pulse oximetry 2022-11-03 15:35:00 99 /min [facility] BP Systolic 2022-10-12 10:06:00 140 mm[Hg] Robert Cali BP Diastolic 2022-10-12 10:06:00 78 mm[Hg] Robert Cali Weight Measured 2022-10-12 10:06:00 212.20 pounds Robert Cali Height Measured 2022-10-12 10:06:00 66.00 inches Robert Cali Body Temperature 2022-10-12 10:06:00 97.40 degrees Robert Cali Heart Rate 2022-10-12 10:06:00 93.00 /min Robert Cali Respiratory Rate 2022-10-12 10:06:00 Robert Cali Systolic blood pressure 2022-10-04 14:26:00 149 mm[Hg] [facility] Diastolic blood pressure 2022-10-04 14:26:00 76 mm[Hg] [facility] Heart rate 2022-10-04 14:26:00 78 /min [facility] Respiratory rate 2022-10-04 14:21:00 18 /min [facility] Body height 2022-10-04 14:21:00 167.6 cm [facility] Body weight 2022-10-04 14:21:00 96.843 kg [facility] BMI 2022-10-04 14:21:00 34.46 kg/m2 [facility] Systolic blood pressure 2022-07-26 13:22:00 135 mm[Hg] [facility] Diastolic blood pressure 2022-07-26 13:22:00 78 mm[Hg] [facility] Heart rate 2022-07-26 13:22:00 85 /min [facility] Respiratory rate 2022-07-26 13:22:00 18 /min [facility] Body height 2022-07-26 13:22:00 167.6 cm [facility] Body weight 2022-07-26 13:22:00 97.523 kg [facility] BMI 2022-07-26 13:22:00 34.70 kg/m2 [facility] BP Systolic 2022-06-27 13:54:00 132 mm[Hg] Robert Cali BP Diastolic 2022-06-27 13:54:00 77 mm[Hg] Robert Cali Weight Measured 2022-06-27 13:54:00 217.80 pounds Robert [...] BP Systolic 2022-05-23 11:20:00 135 mm[Hg] Robert F Viraj BP Diastolic 2022-05-23 11:20:00 64 mm[Hg] Robert F Viraj Weight Measured 2022-05-23 11:20:00 230.00 pounds Robert F Viraj Height Measured 2022-05-23 11:20:00 66.00 inches Robert F Viraj Body Temperature 2022-05-23 11:20:00 97.80 degrees Robert F Viraj Heart Rate 2022-05-23 11:20:00 87.00 /min Robert [...] blood pressure 2022-02-15 14:59:00 131 mm[Hg] [facility] Diastolic blood pressure 2022-02-15 14:59:00 70 mm[Hg] [facility] Heart rate 2022-02-15 14:59:00 81 /min [facility] Respiratory rate 2022-02-15 14:59:00 18 /min [facility] Body height 2022-02-15 14:59:00 167.6 cm [facility] Body weight 2022-02-15 14:59:00 102.967 kg [facility] BMI 2022-02-15 14:59:00 36.64 kg/m2 [facility] Respiratory rate 2022-01-11 17:11:00 18 /min [facility] Body height 2022-01-11 17:11:00 167.6 cm [facility] Body weight 2022-01-11 17:11:00 100.699 kg [facility] BMI 2022-01-11 17:11:00 35.83 kg/m2 [facility] Systolic blood pressure 2021-08-24 14:24:00 133 mm[Hg] [facility] Diastolic blood pressure 2021-08-24 14:24:00 73 mm[Hg] [facility] Heart rate 2021-08-24 14:24:00 69 /min [facility] Respiratory rate 2021-08-24 14:24:00 18 /min [facility] Body height 2021-08-24 14:24:00 167.6 cm [facility] Body weight 2021-08-24 14:24:00 100.245 kg [facility] BMI 2021-08-24 14:24:00 35.67 kg/m2 [facility] Oxygen saturation in Arterial blood by Pulse oximetry 2021-06-07 15:30:00 96 /min [facility] Body temperature 2021-06-07 14:20:30 37.44 Verna [facility] BP Systolic 2020-07-14 23:18:00 Robert Cali BP Diastolic 2020-07-14 23:18:00 Robert Cali Weight Measured 2020-07-14 23:18:00 Robert Cali Height Measured 2020-07-14 23:18:00 Robert Cali Body Temperature 2020-07-14 23:18:00 Robert Cali Heart Rate 2020-07-14 23:18:00 Robert Cali Respiratory Rate 2020-07-14 23:18:00 Robert Cali Procedures Procedure Date / Time Performed Performing Clinician Source URINALYSIS 2023-06-08 03:45:00 Rhiannon Vizcarra [facility] URINE DRUG (IMMUNOASSAY) - COMPREHENSIVE DRUG SCREEN W/O REFLEX 2023-06-08 03:45:00 Marysol Pabon [facility] URINALYSIS 2023-06-08 03:45:00 Rhiannon Vizcarra [facility] URINE DRUG (IMMUNOASSAY) - COMPREHENSIVE DRUG SCREEN W/O REFLEX 2023-06-08 03:45:00 Marysol Pabon [facility] CT STROKE ANGIOGRAM HEAD 2023-06-08 02:56:58 Rhiannon Vizcarra [facility] CT STROKE ANGIOGRAM NECK 2023-06-08 02:56:58 Rhiannon Vizcarra [facility] HB ECG ROUTINE & RHYTHM STRIP 2023-06-08 02:53:51 Rhiannon Vizcarra [facility] CT STROKE HEAD WO CONTRAST 2023-06-08 02:48:28 Rhiannon Vizcarra [facility] TROPONIN I 2023-06-08 02:45:00 Rhiannon Vizcarra [facility] BASIC METABOLIC PANEL (NA, K , CL, CO2, GLUCOSE, BUN, CREATININE, CA) 2023-06-08 02:45:00 Rhiannon Vizcarra [facility] LITHIUM 2023-06-08 02:45:00 Marysol Pabon [facility] ETHANOL 2023-06-08 02:45:00 Marysol Pabon [facility] CBC WITHOUT DIFF 2023-06-08 02:45:00 Rhiannon Vizcarra [facility] PROTHROMBIN TIME / INR 2023-06-08 02:45:00 Rhiannon Vizcarra [facility] ACTIVATED PARTIAL THRMPLAS CIPRIANO 2023-05-15 6 02:45:00 Rhiannon Vizcarra [facility] EXTRA TUBE LAV 2023-06-08 02:45:00 Marysol Pabon [facility] PROTHROMBIN TIME / INR 2023-06-08 02:45:00 Rhiannon Vizcarra [facility] ACTIVATED PARTIAL THRMPLAS CIPRIANO 2023-05-15 6 02:45:00 Rhiannon Vizcarar [facility] CBC WITHOUT DIFF 2023-06-08 02:45:00 Rhiannon Vizcarra [facility] TROPONIN I 2023-06-08 02:45:00 Rhiannon Vizcarra [facility] BASIC METABOLIC PANEL (NA, K , CL, CO2, GLUCOSE, BUN, CREATININE, CA) 2023-06-08 02:45:00 Rhiannon Vizcarra [facility] ETHANOL 2023-06-08 02:45:00 Marysol Pabon [facility] LITHIUM 2023-06-08 02:45:00 StanMarysol walters [facility] EXTRA TUBE LAV 2023-06-08 02:45:00 Marysol Pabon [facility] POCT GLUCOSE(AGE >30DAYS) 2023-06-08 02:39:00 Rhiannon Vizcarra [facility] POCT GLUCOSE(AGE >30DAYS) 2023-06-08 02:39:00 Rhiannon Vizcarra [facility] IRON PANEL 2023-02-15 16:30:00 Elidia Corderozam [facility] FERRITIN SERUM 2023-02-15 16:30:00 Elidia Cordero [facility] LITHIUM 2023-01-22 16:35:00 Rosalind Freed [facility] CONSENT/REFUSAL FOR DIAGNOSI S AND TREATMENT 2023-01-22 14:56:09 Doctor Unassigned, [place] [facility] CONSENT/REFUSAL FOR DIAGNOSI S AND TREATMENT 2023-01-22 14:56:09 Doctor Unassigned, [place] [facility] SURGICAL PATHOLOGY EXAM 2022-11-13 13:05:00 Bossman [facility] ESOPHAGOGASTRODUODENOSCOPY 2022-11-13 12:47:00 Bossman [facility] COLONOSCOPY 2022-11-13 12:47:00 Bossman [facility] ESOPHAGOGASTRODUODENOSCOPY 2022-11-13 12:47:00 Bossman [facility] COLONOSCOPY 2022-11-13 12:47:00 Bossman [facility] COLONOSCOPY (ENDO) 2022-11-13 12:28:53 Jae Holloway [facility] COLONOSCOPY (ENDO) 2022-11-13 12:28:53 Jewel [facility] COLONOSCOPY (ENDO) 2022-11-13 12:28:[address] [facility] EGD (ENDO) 2022-11-13 12:19:29 Jae Holloway [facility] EGD (ENDO) 2022-11-13 12:19:29 Jae Holloway [facility] EGD (ENDO) 2022-11-13 12:19:29 Jae Holloway [facility] CONSENT/REFUSAL FOR DIAGNOSI S AND TREATMENT 2022-11-13 12:17:09 Doctor Unassigned, [place] [facility] CONSENT/REFUSAL FOR DIAGNOSI S AND TREATMENT 2022-11-13 12:17:09 Doctor Unassigned, [place] [facility] ASSIGNMENT OF BENEFITS 2022-11-13 11:59:03 Doctor Unassigned, [place] [facility] ASSIGNMENT OF BENEFITS 2022-11-13 11:59:03 Doctor Unassigned, [place] [facility] ENDOSCOPY PROCEDURE DOCUMENTATION 2022-02 0-02 05:01:00 Doctor Unassigned, [place] [facility] ENDOSCOPY PROCEDURE DOCUMENTATION 2022-02 0-02 05:01:00 Doctor Unassigned, [place] [facility] COMP. METABOLIC PANEL ([id number]) 2022-11-03 16:24:00 Dora Newman [facility] CBC WITH DIFF 2022-11-03 16:24:00 Dora Newman [facility] POCT TEST 2022-11-03 16:24:00 Dora Newman [facility] CBC WITH DIFF 2022-11-03 16:24:00 Dora Newman [facility] POCT TEST 2022-11-03 16:24:00 Dora Newman [facility] COMP. METABOLIC PANEL ([id number]) 2022-11-03 16:24:00 Dora Newman [facility] URINALYSIS 2022-11-03 16:18:00 Dora Newman [facility] URINALYSIS 2022-11-03 16:18:00 Dora Newman [facility] RAPID STREP SCREEN FOR GROUP A 2022-10-14 2 16:14:00 Dora Newman [facility] RAPID STREP SCREEN FOR GROUP A 2022-10-14 2 16:14:00 Dora Newman [facility] THROAT CULTURE 2022-11-03 16:14:00 Dora Newman [facility] CONSENT/REFUSAL FOR DIAGNOSI S AND TREATMENT 2022-11-03 15:27:05 Doctor Unassigned, [place] [facility] CONSENT/REFUSAL FOR DIAGNOSI S AND TREATMENT 2022-11-03 15:27:05 Doctor Unassigned, [place] [facility] EMERGENCY SERVICES AGREEMENT S AND AUTHORIZATIONS 2022-11-03 05:01:00 Doctor Unassigned, [place] [facility] HELICOBACTER PYLORI ANTIGEN, FECAL BY EIA 2022-10-19 13:44:00 Elidia Cordero [facility] HELICOBACTER PYLORI ANTIGEN, FECAL BY EIA 2022-10-19 13:44:00 Elidia Cordero [facility] FERRITIN SERUM 2022-10-19 13:35:00 Elidia Cordero [facility] IRON PANEL 2022-10-19 13:35:00 Elidia Cordero [facility] CELIAC SCREEN 2022-10-19 13:35:00 Elidia Cordero [facility] LAB ONLY CELIAC SCREEN IGA 2022-10-19 13:35:00 Elidia Cordero [facility] IRON PANEL 2022-10-19 13:35:00 Elidia Cordero [facility] CELIAC SCREEN 2022-10-19 13:35:00 Elidia Cordero [facility] FERRITIN SERUM 2022-10-19 13:35:00 Elidia Cordero [facility] LAB ONLY CELIAC SCREEN IGA 2022-10-19 13:35:00 Elidia Cordero [facility] DISCLOSURE AND CONSENT, [facility] JAVAD AND SURGICAL PROCEDURES 2022-10-19 05:01:00 Doctor Unassigned, [place] [facility] DISCLOSURE AND CONSENT, MEDI JVAAD AND SURGICAL PROCEDURES 2022-10-19 05:01:00 Doctor Unassigned, [place] [facility] REFERRAL- REQUEST/RESPONSE 2022-10-12 05:01:00 Doctor Unassigned, [place] [facility] REFERRAL- REQUEST/RESPONSE 2022-10-12 05:01:00 Doctor Unassigned, [place] [facility] THYROID STIMULATING HORMONE 2022-10-05 15:15:00 Rosalind Freed [facility] COMP. METABOLIC PANEL ([id number]) 2022-10-05 15:15:00 Rosalind Freed [facility] LIPID PANEL ([id number])(TOTAL CHOLESTEROL, TRIGLYCERIDES, HDL) 2022-10-05 15:15:00 Rosalind Freed [facility] LITHIUM 2022-10-05 15:15:00 Sara Hester [facility] CBC WITH DIFF 2022-10-05 15:15[facility]00 [facility] GLYCOSYLATED HEMOGLOBIN (A1C) 2022-10-05 15:15:00 Abdiaziz [facility] CBC WITH DIFF 2022-10-05 15:15:00 Abdiaziz [facility] COMP. METABOLIC PANEL ([id number]) 2022-10-05 15:15:00 Abdiaziz [facility] GLYCOSYLATED HEMOGLOBIN (A1C) 2022-10-05 15:15:00 Abdiaziz [facility] LIPID PANEL ([id number])(TOTAL CHOLESTEROL, TRIGLYCERIDES, HDL) 2022-10-05 15:15:00 Abdiaziz [facility] THYROID STIMULATING HORMONE 2022-10-05 15:15:00 Abdiaziz [facility] LITHIUM 2022-10-05 15:15:00 Sara Hester [facility] ASSIGNMENT OF BENEFITS 2022-10-04 14:17:30 Doctor Unassigned, [place] [facility] ASSIGNMENT OF BENEFITS 2022-10-04 14:17:30 Doctor Unassigned, [place] [facility] LITHIUM 2022-07-26 14:49:00 Angela Sage [facility] PATIENT FINANCIAL POLICY 2022-07-26 13:16:12 Doctor Unassigned, [place] [facility] PATIENT FINANCIAL POLICY 2022-07-26 13:16:12 Doctor Unassigned, [place] [facility] EXTERNAL PROVIDER RECORDS 2022-04-08 06:01:00 Doctor Unassigned, [place] [facility] EXTERNAL PROVIDER RECORDS 2022-04-08 06:01:00 Doctor Unassigned, [place] [facility] EXTERNAL PROVIDER RECORDS 2022-02-21 06:01:00 Doctor Unassigned, [place] [facility] EXTERNAL PROVIDER RECORDS 2022-02-21 06:01:00 Doctor Unassigned, [place] [facility] LITHIUM 2022-02-15 15:58:00 Angela Sage [facility] CONSENT/REFUSAL FOR DIAGNOSI S AND TREATMENT 2022-01-11 17:10:16 Doctor Unassigned, [place] [facility] CONSENT/REFUSAL FOR DIAGNOSI S AND TREATMENT 2022-01-11 17:10:16 Doctor Unassigned, [place] [facility] EXTERNAL PROVIDER RECORDS 2020-11-26 05:01:00 Doctor Unassigned, [place] [facility] Encounters Start Date/Time End Date/Time Encounter Type Admission Type Attending [facility] Facility Care Department Encounter ID Source 2023-12-14 15:51:00 Outpatient Jae Holloway [facility] [id number] [facility] 2023-11-27 15:05:01 Outpatient Jae Holloway [facility] [id number] [facility] 2020-12-13 10:09:54 Emergency [facility] [id number] [facility] 2020-12-11 04:02:45 Emergency [facility] [id number] [facility] 2024-01-22 09:30:00 2024-01-22 09:30:00 Outpatient R [facility] [id number] [facility] 2024-01-18 00:00:00 2024-01-18 00:00:00 Outpatient Visit [facility] [id number] Robert Cali 2024-01-04 16:41:03 2024-01-04 16:41:03 Outpatient SFA [facility] [id number] Robert Cali 2024-01-04 00:00:00 2024-01-04 00:00:00 Outpatient Visit [facility] [id number] Robert Cali 2023-12-26 08:50:25 2023-12-26 08:50:25 Outpatient SFA S[facility] [id number] Robert Ambrose Viraj 2023-12-19 10:24:52 2023-12-19 10:24:52 Outpatient SFA S[facility] [id number] Robert Cali 2023-12-11 16:28:54 2023-12-11 16:28:54 Outpatient SFA S[facility] [id number] Robert Ambrose Viraj 2023-12-11 00:00:00 2023-12-11 00:00:00 Outpatient Visit [facility] [id number] Robert Cali 2023-12-05 13:46:14 2023-12-05 13:46:14 Outpatient SFA [facility] [id number] Robert Cali 2023-11-27 08:13:37 2023-11-27 08:13:37 Outpatient SFA [facility] [id number] Robert Cali 2023-11-27 00:00:00 2023-11-27 00:00:00 Outpatient Visit S[facility] [id number] Robert Cali 2023-10-09 00:00:00 2023-11-10 18:22:03 Patient Secure Msg Doctor Unassigned, [place] 1.2.840.1 39257.1.1 3.104.2.7 .3.238874 .8 [id number] [facility] 2023-11-06 13:51:42 2023-11-06 13:51:42 Outpatient SFA [facility] [id number] Robert Cali 2023-10-02 00:00:00 2023-11-03 18:20:51 Patient Secure Msg Doctor Unassigned, [place] 1.2.840.1 23218.1.1 3.104.2.7 .3.521361 .8 [id number] [facility] 2023-09-28 00:00:00 2023-10-02 12:14:38 Patient Secure Msg Tavon Dumont 1.2.840.1 21390.1.1 3.104.2.7 .3.096453 .8 [id number] [facility] 2023-09-03 09:30:00 2023-09-03 11:20:53 Outpatient ALESHA AMBRIZ [facility] [id number] [facility] 2023-09-03 00:00:00 2023-09-03 00:00:00 Travel 1.2.840.1 95905.1.1 3.104.2.7 .3.506864 .8 1.2.840.114 350.1.13.10 4.2.7.3.698 084.8 [id number] [facility] 2023-08-31 00:00:00 2023-08-31 00:00:00 Travel 1.2.840.1 12286.1.1 3.104.2.7 .3.765392 .8 1.2.840.114 350.1.13.10 4.2.7.3.698 084.8 [id number] [facility] 2023-08-27 08:00:00 2023-08-27 08:00:00 Outpatient ALESHA AMBRIZ [facility] [id number] [facility] 2023-08-24 00:00:00 2023-08-24 00:00:00 Travel 1.2.840.1 [id number] 3.104.2.7 .3.194286 .8 1.2.840.114 350.1.13.10 4.2.7.3.698 084.8 [id number] [facility] 2023-08-08 00:00:00 2023-08-08 12:08:14 Case Management Elidia Cordero 1.2.840.1 48371.1.1 3.104.2.7 .3.255578 .8 [id number] [facility] 2023-07-02 00:00:00 2023-08-04 18:20:55 Patient Secure Msg Dominic Keita 1.2.840.1 11290.1.1 3.104.2.7 .3.700625 .8 [id number] [facility] 2023-08-03 00:00:00 2023-08-03 08:18:24 Telephone Elidia Cordero 1.2.840.1 50391.1.1 3.104.2.7 .3.537650 .8 [id number] [facility] 2023-07-30 00:00:00 2023-07-30 15:44:55 Telephone Elidia Cordero 1.2.840.1 67353.1.1 3.104.2.7 .3.908259 .8 [id number] [facility] 2023-07-26 09:30:00 2023-07-26 10:00:00 Office Visit Jose Westbrook Abdullah Azzam 1.2.840.1 76574.1.1 3.104.2.7 .3.544470 .8 [id number] [facility] 2023-07-26 09:30:00 2023-07-26 09:30:00 Outpatient JOSE TRAN [facility] [id number] [facility] 2023-07-26 00:00:00 2023-07-26 00:00:00 Travel 1.2.840.1 [id number] 3.104.2.7 .3.188315 .8 1.2.840.114 350.1.13.10 4.2.7.3.698 084.8 [id number] [facility] 2023-07-18 10:15:00 2023-07-18 10:15:00 Outpatient FARZANA UGALDE [facility] [id number] [facility] 2023-07-16 00:00:00 2023-07-16 00:00:00 Travel 1.2.840.1 22289.1.1 3.104.2.7 .3.493968 .8 1.2.840.114 350.1.13.10 4.2.7.3.698 084.8 [id number] [facility] 2023-07-02 00:00:00 2023-07-02 12:41:14 Telephone Elidia Cordero 1.2.840.1 56297.1.1 3.104.2.7 .3.747264 .8 [id number] [facility] 2023-06-13 00:00:00 2023-06-13 10:19:53 Letter (Out) 1.2.840.1 92633.1.1 3.104.2.7 .3.502895 .8 [id number] [facility] 2023-06-07 21:35:00 2023-06-08 02:20:00 Emergency X MARYSOL PABON [facility] ERT [id number] [facility] 2023-06-07 21:35:00 2023-06-08 02:20:00 Emergency Marysol Pabon VizcarraRhiannon T 1.2.840.1 52337.1.1 3.104.2.7 .3.747375 .8 [id number] [facility] 2023-06-07 00:00:00 2023-06-07 00:00:00 Travel 1.2.840.1 84836.1.1 3.104.2.7 .3.367779 .8 1.2.840.114 350.1.13.10 4.2.7.3.698 084.8 [id number] [facility] 2023-05-29 00:00:00 2023-06-04 10:54:35 Patient Secure Dominic Ly 1.2.840.1 85331.1.1 3.104.2.7 .3.419152 .8 [id number] [facility] 2023-05-28 08:45:00 2023-05-28 08:45:00 Outpatient DAVIDSON MEYER [facility] [id number] [facility] 2023-05-25 00:00:00 2023-05-25 00:00:00 Travel 1.2.840.1 68519.1.1 3.104.2.7 .3.880503 .8 1.2.840.114 350.1.13.10 4.2.7.3.698 084.8 [id number] [facility] 2023-05-22 08:17:37 2023-05-22 08:17:37 Outpatient [facility] [id number] Robert Cali 2023-05-11 00:00:00 2023-05-11 17:06:28 Telephone Elidia Cordero 1.2.840.1 96138.1.1 3.104.2.7 .3.386132 .8 [id number] [facility] 2023-05-09 00:00:00 2023-05-09 17:14:57 Patient Secure Msg Dominic Keita 1.2.840.1 68233.1.1 3.104.2.7 .3.195511 .8 [id number] [facility] 2023-05-08 10:00:00 2023-05-08 10:00:00 Outpatient EMILIA WU [facility] [id number] [facility] 2023-03-28 00:00:00 2023-04-28 18:05:02 Patient Secure Msg Doctor Unassigned, [place] 1.2.840.1 82676.1.1 3.104.2.7 .3.011569 .8 [id number] [facility] 2023-04-18 08:00:00 2023-04-18 08:00:00 Outpatient FARZANA UGALDE [facility] [id number] [facility] 2023-04-17 00:00:00 2023-04-17 00:00:00 Travel 1.2.840.1 89883.1.1 3.104.2.7 .3.508196 .8 1.2.840.114 350.1.13.10 4.2.7.3.698 084.8 [id number] [facility] 2023-04-11 13:00:00 2023-04-11 13:00:00 Outpatient R EMILIA SNOWDEN [facility] [id number] [facility] 2023-04-11 13:00:00 2023-04-11 13:00:00 Outpatient R EMILIA SNOWDEN [facility] [id number] [facility] 2023-04-04 08:00:00 2023-04-04 08:00:00 Outpatient R [facility] [id number] [facility] 2023-04-02 00:00:00 2023-04-02 00:00:00 Travel 1.2.840.1 22099.1.1 3.104.2.7 .3.930123 .8 1.2.840.114 350.1.13.10 4.2.7.3.698 084.8 [id number] [facility] 2023-03-09 00:00:00 2023-03-09 00:00:00 Telephone Elidia Corder[place]aven 1.2.840.1 41477.1.1 3.104.2.7 .3.546604 .8 [id number] [facility] 2023-03-08 00:00:00 2023-03-08 00:00:00 Telephone Elidia Corder[place]aven 1.2.840.1 88280.1.1 3.104.2.7 .3.012246 .8 [id number] [facility] 2023-02-28 10:15:00 2023-02-28 10:15:00 Outpatient R SARA HESTER KIMBERLY [facility] [id number] [facility] 2023-02-27 00:00:00 2023-02-27 00:00:00 Travel 1.2.840.1 21898.1.1 3.104.2.7 .3.198053 .8 1.2.840.114 350.1.13.10 4.2.7.3.698 084.8 [id number] [facility] 2023-02-15 10:30:00 2023-02-15 10:45:00 Bioinformatics Research Technician Visit Jewel Cunha [facility] 1.2.840.1 54359.1.1 3.104.2.7 .3.800695 .8 [id number] [facility] 2023-02-15 09:30:00 2023-02-15 10:00:00 Office Visit Jewel Cunha Vanessa Elidia Gamble 1.2.840.1 43738.1.1 3.104.2.7 .3.194864 .8 [id number] [facility] 2023-02-15 09:30:00 2023-02-15 09:30:00 Outpatient R LIZETTEWhitney JEWEL [facility] [id number] [facility] 2023-02-15 00:00:00 2023-02-15 00:00:00 Travel 1.2.840.1 39910.1.1 3.104.2.7 .3.876856 .8 1.2.840.114 350.1.13.10 4.2.7.3.698 084.8 [id number] [facility] 2023-01-23 13:00:00 2023-01-23 13:00:00 Outpatient R JENNY ARRIAGA RIZWAN [facility] [id number] [facility] 2023-01-22 10:15:00 2023-01-22 10:30:00 Bioinformatics Research Technician Visit Dexter Dias [facility] 1.2.840.1 37923.1.1 3.104.2.7 .3.851821 .8 [id number] [facility] 2023-01-22 09:30:00 2023-01-22 10:07:50 Outpatient R DEXTER DIAS [facility] [id number] [facility] 2023-01-22 00:00:00 2023-01-22 00:00:00 Orders Only Doctor Unassigned, [place] 1.2.840.1 37865.1.1 3.104.2.7 .3.476093 .8 [id number] [facility] 2023-01-22 00:00:00 2023-01-22 00:00:00 Travel 1.2.840.1 29166.1.1 3.104.2.7 .3.389379 .8 1.2.840.114 350.1.13.10 4.2.7.3.698 084.8 [id number] [facility] 2023-01-15 00:00:00 2023-01-15 00:00:00 Telephone Elidia Cordero 1.2.840.1 45366.1.1 3.104.2.7 .3.216283 .8 [id number] [facility] 2023-01-12 00:00:00 2023-01-12 00:00:00 Patient Secure Msg OnurfidelinaKaur johnsoneram 1.2.840.1 84798.1.1 3.104.2.7 .3.607410 .8 [id number] [facility] 2022-12-29 09:30:00 2022-12-29 09:30:00 Outpatient JENNY SESAY RIZWAN [facility] [id number] [facility] 2022-12-29 00:00:00 2022-12-29 00:00:00 Telephone Elidia Cordero 1.2.840.1 01738.1.1 3.104.2.7 .3.660706 .8 [id number] [facility] 2022-12-29 00:00:00 2022-12-29 00:00:00 Telephone Elidia Cordero 1.2.840.1 27268.1.1 3.104.2.7 .3.138407 .8 [id number] [facility] 2022-12-28 00:00:00 2022-12-28 00:00:00 Case Management Elidia Cordero 1.2.840.1 55294.1.1 3.104.2.7 .3.176174 .8 [id number] [facility] 2022-12-20 16:00:00 2022-12-20 16:46:31 Outpatient R [facility] [id number] [facility] 2022-12-20 09:49:08 2022-12-20 09:49:08 Outpatient [facility] [id number] Robert Cali 2022-12-19 00:00:00 2022-12-19 00:00:00 Travel 1.2.840.1 93149.1.1 3.104.2.7 .3.253621 .8 1.2.840.114 350.1.13.10 4.2.7.3.698 084.8 [id number] [facility] 2022-12-18 09:30:00 2022-12-18 09:30:00 Outpatient R [facility] [id number] [facility] 2022-12-18 00:00:00 2022-12-18 00:00:00 Telephone Elidia Cordero 1.2.840.1 56735.1.1 3.104.2.7 .3.950662 .8 [id number] [facility] 2022-12-14 00:00:00 2022-12-14 00:00:00 Patient Secure Msg Doctor Unassigned, [place] 1.2.840.1 59785.1.1 3.104.2.7 .3.826408 .8 [id number] [facility] 2022-12-11 08:45:00 2022-12-11 08:45:00 Outpatient R [facility] [id number] [facility] 2022-12-10 00:00:00 2022-12-10 00:00:00 Outpatient GC_GCBZW_Ka diyala_S [facility] [id number] [facility] 2022-12-08 15:30:00 2022-12-08 15:30:00 Outpatient R JENNY ARRIAGA RIZWAN [facility] [id number] [facility] 2022-12-06 08:00:00 2022-12-06 08:00:00 Outpatient R ONEIDA MONTANA [facility] [id number] [facility] 2022-11-29 00:00:00 2022-11-29 00:00:00 Telephone Elidia Cordero 1.2.840.1 87344.1.1 3.104.2.7 .3.508082 .8 [id number] [facility] 2022-11-27 00:00:00 2022-11-27 00:00:00 Telephone Elidia Cordero 1.2.840.1 07403.1.1 3.104.2.7 .3.779201 .8 [id number] [facility] 2022-11-27 00:00:00 2022-11-27 00:00:00 Telephone Elidia Cordero 1.2.840.1 28635.1.1 3.104.2.7 .3.213003 .8 [id number] [facility] 2022-11-23 00:00:00 2022-11-23 00:00:00 Telephone Eildia Cordero 1.2.840.1 08950.1.1 3.104.2.7 .3.373788 .8 [id number] [facility] 2022-11-23 00:00:00 2022-11-23 00:00:00 Telephone Elidia Cordero 1.2.840.1 86920.1.1 3.104.2.7 .3.203245 .8 [id number] [facility] 2022-11-22 09:30:00 2022-11-22 09:30:00 Outpatient R [facility] [id number] [facility] 2022-11-16 00:00:00 2022-11-16 00:00:00 Telephone Elidia Cordero 1.2.840.1 94650.1.1 3.104.2.7 .3.427876 .8 [id number] [facility] 2022-11-16 00:00:00 2022-11-16 00:00:00 Patient Secure Msg Dominic Keita 1.2.840.1 18248.1.1 3.104.2.7 .3.923102 .8 [id number] [facility] 2022-11-13 06:59:00 2022-11-13 09:48:00 Outpatient [facility] [id number] [facility] 2022-11-13 06:59:00 2022-11-13 09:48:00 Hospital Encounter Dominic Keita 1.2.840.1 62361.1.1 3.104.2.7 .3.765661 .8 [id number] [facility] 2022-11-13 07:58:00 2022-11-13 08:33:00 Anesthesia Event Hunter Cruz Joan 1.2.840.1 85654.1.1 3.104.2.7 .3.831131 .8 [id number] [facility] 2022-11-13 07:15:00 2022-11-13 08:15:00 Surgery Dominic Keita 1.2.840.1 89972.1.1 3.104.2.7 .3.267453 .8 [id number] [facility] 2022-11-13 00:00:00 2022-11-13 00:00:00 Orders Only Doctor Unassigned, [place] 1.2.840.1 76484.1.1 3.104.2.7 .3.692293 .8 [id number] [facility] 2022-11-13 00:00:00 2022-11-13 00:00:00 Telephone Dominic Keita 1.2.840.1 20989.1.1 3.104.2.7 .3.384123 .8 [id number] [facility] 2022-11-13 00:00:00 2022-11-13 00:00:00 Travel 1.2.840.1 89394.1.1 3.104.2.7 .3.437465 .8 1.2.840.114 350.1.13.10 4.2.7.3.698 084.8 [id number] [facility] 2022-11-10 00:00:00 2022-11-10 00:00:00 Outpatient R RADIOLOGY [facility] [id number] [facility] 2022-11-10 00:00:00 2022-11-10 00:00:00 Patient Secure Msg Dominic Keita 1.2.840.1 46549.1.1 3.104.2.7 .3.814541 .8 [id number] [facility] 2022-11-09 00:00:00 2022-11-09 00:00:00 Patient Secure Msg Doctor Unassigned, [place] 1.2.840.1 23131.1.1 3.104.2.7 .3.270178 .8 [id number] [facility] 2022-11-07 00:00:00 2022-11-07 00:00:00 Patient Secure Msg Doctor Unassigned, [place] 1.2.840.1 22497.1.1 3.104.2.7 .3.513065 .8 [id number] [facility] 2022-11-03 10:36:00 2022-11-03 13:16:00 Emergency X DORA NEWMAN [facility] ERT [id number] [facility] 2022-11-03 10:36:00 2022-11-03 13:16:00 Emergency Dora Newman G 1.2.840.1 26226.1.1 3.104.2.7 .3.189717 .8 [id number] [facility] 2022-11-03 00:00:00 2022-11-03 00:00:00 Travel 1.2.840.1 17314.1.1 3.104.2.7 .3.531847 .8 1.2.840.114 350.1.13.10 4.2.7.3.698 084.8 [id number] [facility] 2022-10-30 00:00:00 2022-10-30 00:00:00 Case Management Elidia Cordero 1.2.840.1 68706.1.1 3.104.2.7 .3.740276 .8 [id number] [facility] 2022-10-19 08:30:00 2022-10-19 08:45:00 Bioinformatics Research Technician Visit Jewel Cunha [facility] 1.2.840.1 65630.1.1 3.104.2.7 .3.838349 .8 [id number] [facility] 2022-10-19 07:30:00 2022-10-19 08:15:30 Outpatient R JEWEL CUNHA [facility] [id number] [facility] 2022-10-19 07:30:00 2022-10-19 08:15:30 Office Visit Jewel Cunha Abdullah Azzam 1.2.840.1 34535.1.1 3.104.2.7 .3.636604 .8 [id number] [facility] 2022-10-19 00:00:00 2022-10-19 00:00:00 Orders Only Doctor Unassigned, [place] 1.2.840.1 07358.1.1 3.104.2.7 .3.916025 .8 [id number] [facility] 2022-10-18 00:00:00 2022-10-18 00:00:00 Travel 1.2.840.1 63736.1.1 3.104.2.7 .3.502712 .8 1.2.840.114 350.1.13.10 4.2.7.3.698 084.8 [id number] [facility] 2022-10-12 09:56:06 2022-10-12 09:56:06 Outpatient [facility] [id number] Robert F Viraj 2022-10-12 00:00:00 2022-10-12 00:00:00 Orders Only Doctor Unassigned, [place] 1.2.840.1 58489.1.1 3.104.2.7 .3.439475 .8 [id number] [facility] 2022-10-05 10:15:00 2022-10-05 10:30:00 Bioinformatics Research Technician Visit Kath Vences, [facility] 1.2.840.1 25944.1.1 3.104.2.7 .3.307110 .8 [id number] [facility] 2022-10-05 10:15:00 2022-10-05 10:15:00 Outpatient KATH CABRAL [facility] [id number] [facility] 2022-10-04 09:30:00 2022-10-04 10:30:11 Outpatient DEXTER MIRELES [facility] [id number] [facility] 2022-10-04 00:00:00 2022-10-04 00:00:00 Orders Only Doctor Unassigned, [place] 1.2.840.1 88723.1.1 3.104.2.7 .3.785963 .8 [id number] [facility] 2022-10-04 00:00:00 2022-10-04 00:00:00 Travel 1.2.840.1 36121.1.1 3.104.2.7 .3.296189 .8 1.2.840.114 350.1.13.10 4.2.7.3.698 084.8 [id number] [facility] 2022-10-02 00:00:00 2022-10-02 00:00:00 Travel 1.2.840.1 62975.1.1 3.104.2.7 .3.894359 .8 1.2.840.114 350.1.13.10 4.2.7.3.698 084.8 [id number] [facility] 2022-09-06 08:45:00 2022-09-06 08:45:00 Outpatient SARA DELGADILLO KIMBERLY [facility] [id number] [facility] 2022-09-06 00:00:00 2022-09-06 00:00:00 Travel 1.2.840.1 24033.1.1 3.104.2.7 .3.369300 .8 1.2.840.114 350.1.13.10 4.2.7.3.698 084.8 [id number] [facility] 2022-07-26 11:00:00 2022-07-26 11:15:00 Bioinformatics Research Technician Visit Pathology Pcp-Lab 1.2.840.1 95631.1.1 3.104.2.7 .3.240471 .8 [id number] [facility] 2022-07-26 08:45:00 2022-07-26 09:37:46 [facility] [id number] 2022-07-26 00:00:00 2022-07-26 00:00:00 Orders Only Doctor Unassigned, [place] 1.2.840.1 11282.1.1 3.104.2.7 .3.483472 .8 [id number] [facility] 2022-07-26 00:00:00 2022-07-26 00:00:00 Travel 1.2.840.1 90401.1.1 3.104.2.7 .3.938322 .8 1.2.840.114 350.1.13.10 4.2.7.3.698 084.8 [id number] [facility] 2022-07-24 13:24:12 2022-07-24 13:24:12 Outpatient SFA SFA [id number] Robert Cali 2022-06-27 13:49:18 2022-06-27 13:49:18 Outpatient SFA SFA [id number] Robert Ambrose Viraj 2022-06-21 08:52:50 2022-06-21 08:52:50 Outpatient SFA SFA [id number] Robert Cali 2022-06-15 15:23:34 2022-06-15 15:23:34 Outpatient SFA SFA [id number] Robert Cali 2022-05-31 08:45:00 2022-05-31 08:45:00 Outpatient SARA DELGADILLO KIMBERLY [facility] [id number] [facility] 2022-05-30 11:55:27 2022-05-30 11:55:27 Outpatient SFA SFA [id number] Robert Ambrose Viraj 2022-05-23 11:17:29 2022-05-23 11:17:29 Outpatient SFA SFA [id number] Robert Cali 2022-05-12 08:06:11 2022-05-12 08:06:11 Outpatient SFA SFA [id number] Robert Ambrose Viraj 2022-05-11 13:45:44 2022-05-11 13:45:44 Outpatient SFA SFA [id number] Robert Cali 2022-04-08 00:00:00 2022-04-08 00:00:00 Orders Only Doctor Unassigned, [place] 1.2.840.1 73602.1.1 3.104.2.7 .3.559464 .8 [id number] [facility] 2022-02-21 00:00:00 2022-02-21 00:00:00 Orders Only Doctor Unassigned, [place] 1.2.840.1 81121.1.1 3.104.2.7 .3.843037 .8 [id number] [facility] 2022-02-15 13:30:00 2022-02-15 13:45:00 Bioinformatics Research Technician Visit Pathology Pcp-Lab 1.2.840.1 45612.1.1 3.104.2.7 .3.570556 .8 [id number] [facility] 2022-02-15 08:45:00 2022-02-15 10:52:26 Outpatient R DEXTER DIAS [facility] [id number] [facility] 2022-02-15 00:00:00 2022-02-15 00:00:00 Travel 1.2.840.1 29987.1.1 3.104.2.7 .3.030480 .8 1.2.840.114 350.1.13.10 4.2.7.3.698 084.8 [id number] [facility] 2022-01-11 11:00:00 2022-01-11 12:39:46 Outpatient R SARA HESTER KIMBERLY [facility] [id number] [facility] 2022-01-11 00:00:00 2022-01-11 00:00:00 Orders Only Doctor Unassigned, [place] 1.2.840.1 68352.1.1 3.104.2.7 .3.068605 .8 [id number] [facility] 2022-01-11 00:00:00 2022-01-11 00:00:00 Travel 1.2.840.1 49291.1.1 3.104.2.7 .3.407976 .8 1.2.840.114 350.1.13.10 4.2.7.3.698 084.8 [id number] [facility] 2021-11-24 09:30:00 2021-11-24 09:30:00 Outpatient R IGOR SAAVEDRA [facility] [id number] [facility] 2021-11-16 11:00:00 2021-11-16 11:00:00 Outpatient R SARA HESTER KIMBERLY [facility] [id number] [facility] 2021-10-26 08:00:00 2021-10-26 08:00:00 Outpatient R DEXTER DIAS [facility] [id number] [facility] 2021-10-20 10:00:00 2021-10-20 10:00:00 Outpatient R IGOR SAAVEDRA [facility] [id number] [facility] 2021-10-03 14:30:00 2021-10-03 14:30:00 Outpatient R DAVIDSON SUTHERLAND [facility] [id number] [facility] 2021-09-21 09:30:00 2021-09-21 09:30:00 Outpatient R DEXTER DIAS [facility] [id number] [facility] 2021-08-24 09:30:00 2021-08-24 10:41:34 [facility] [id number] 2021-08-24 00:00:00 2021-08-24 00:00:00 Travel 1.2.840.1 05460.1.1 3.104.2.7 .3.770287 .8 1.2.840.114 350.1.13.10 4.2.7.3.698 084.8 [id number] [facility] 2021-07-25 09:00:00 2021-07-25 09:00:00 Outpatient R DEXTER DIAS [facility] [id number] [facility] 2021-06-22 11:15:00 2021-06-22 12:18:05 Outpatient R SARA HESTER SARA [facility] [id number] [facility] 2021-06-22 11:15:00 2021-06-22 11:15:00 [facility] [id number] [facility] 2021-06-22 00:00:00 2021-06-22 00:00:00 Travel 1.2.840.1 01406.1.1 3.104.2.7 .3.324770 .8 1.2.840.114 350.1.13.10 4.2.7.3.698 084.8 [id number] [facility] 2021-06-20 11:15:00 2021-06-20 11:15:00 [id number] [facility] 2021-06-20 11:15:00 2021-06-20 11:15:00 [facility] [id number] 2021-06-08 09:20:00 2021-06-08 09:20:00 Outpatient R HILARY MOORE STRAHIL [facility] [id number] [facility] 2021-06-08 00:00:00 2021-06-08 00:00:00 Patient Secure Igor William Rai [facility] 1.2.840.114 350.1.13.10 4.2.7.2.686 [id number] [facility] 2021-06-07 09:13:00 2021-06-07 10:50:00 Emergency X GIGI MONROY [facility] ERT [id number] [facility] 2021-06-07 09:13:00 2021-06-07 10:50:00 Emergency Gigi Monroy [facility] 1.2.840.114 350.1.13.10 4.2.7.2.686 [id number] [facility] 2021-06-07 09:13:00 2021-06-07 10:50:00 Emergency Gigi Monroy 1.2.840.1 34177.1.1 3.104.2.7 .3.937336 .8 [id number] [facility] 2021-06-07 00:00:00 2021-06-07 00:00:00 Outpatient IGOR Castaneda RAI [facility] [id number] [facility] 2021-06-07 00:00:00 2021-06-07 00:00:00 Orders Only Doctor Unassigned, [place] [facility] 1.2.840.114 350.1.13.10 4.2.7.2.686 [id number] [facility] 2021-06-07 00:00:00 2021-06-07 00:00:00 Travel 1.2.840.1 58886.1.1 3.104.2.7 .3.347376 .8 1.2.840.114 350.1.13.10 4.2.7.3.698 084.8 [id number] [facility] 2021-06-07 00:00:00 2021-06-07 00:00:00 Orders Only Doctor Unassigned, [place] 1.2.840.1 93893.1.1 3.104.2.7 .3.353007 .8 [id number] [facility] 2021-06-03 00:00:00 2021-06-03 00:00:00 Travel 1.2.840.1 58823.1.1 3.104.2.7 .3.747801 .8 1.2.840.114 350.1.13.10 4.2.7.3.698 084.8 [id number] [facility] 2021-05-27 00:00:00 2021-05-27 00:00:00 Outpatient IGOR Castaneda RAI [facility] [id number] [facility] 2021-05-27 00:00:00 2021-05-27 00:00:00 [facility] [id number] 2021-05-25 00:00:00 2021-05-25 00:00:00 Patient Secure Msg Doctor Unassigned, [place] [facility] 1.2.840.114 350.1.13.10 4.2.7.2.686 [id number] [facility] 2021-05-25 00:00:00 2021-05-25 00:00:00 Patient Secure Msg Doctor Unassigned, [place] 1.2.840.1 33070.1.1 3.104.2.7 .3.341881 .8 [id number] [facility] 2021-05-20 00:00:00 2021-05-20 00:00:00 Telephone Jones Zane Best 1.2.840.1 49014.1.1 3.104.2.7 .3.347232 .8 [id number] [facility] 2021-05-20 00:00:00 2021-05-20 00:00:00 Telephone Robert Best Zane 1.2.840.1 49553.1.1 3.104.2.7 .3.195949 .8 [id number] [facility] 2021-05-18 00:00:00 2021-05-18 00:00:00 Travel 1.2.840.1 96638.1.1 3.104.2.7 .3.548784 .8 1.2.840.114 350.1.13.10 4.2.7.3.698 084.8 [id number] [facility] 2021-05-18 00:00:00 2021-05-18 00:00:00 Travel 1.2.840.1 77019.1.1 3.104.2.7 .3.394115 .8 1.2.840.114 350.1.13.10 4.2.7.3.698 084.8 [id number] [facility] 2021-05-17 13:15:00 2021-05-17 13:30:00 Bioinformatics Research Technician Visit Pcp-Lab Igor Saavedra [facility] 1.2.840.114 350.1.13.10 4.2.7.2.686 [id number] [facility] 2021-05-17 13:15:00 2021-05-17 13:30:00 Bioinformatics Research Technician Visit Igor Saavedra Pcp-Lab 1.2.840.1 78614.1.1 3.104.2.7 .3.222917 .8 [id number] [facility] 2021-05-17 13:15:00 2021-05-17 13:30:00 Bioinformatics Research Technician Visit Igor Saavedra Pcp-Lab 1.2.840.1 25642.1.1 3.104.2.7 .3.044852 .8 [id number] [facility] 2021-05-17 09:00:00 2021-05-17 10:25:05 Outpatient R IGOR SAAVEDRA [facility] [id number] [facility] 2021-05-17 09:00:00 2021-05-17 10:25:05 Office Visit Igor Saavedra Neeharika 1.2.840.1 56091.1.1 3.104.2.7 .3.073066 .8 [id number] [facility] 2021-05-17 09:00:00 2021-05-17 10:25:05 Outpatient R IGOR SAAVEDRA [facility] [id number] [facility] 2021-05-17 09:30:00 2021-05-17 09:30:00 Outpatient R IGOR SAAVEDRA [facility] [id number] [facility] 2021-05-17 00:00:00 2021-05-17 00:00:00 Travel 1.2.840.1 30279.1.1 3.104.2.7 .3.074706 .8 1.2.840.114 350.1.13.10 4.2.7.3.698 084.8 [id number] [facility] 2021-05-17 00:00:00 2021-05-17 00:00:00 Travel 1.2.840.1 67983.1.1 3.104.2.7 .3.097523 .8 1.2.840.114 350.1.13.10 4.2.7.3.698 084.8 [id number] [facility] 2021-04-26 09:00:00 2021-04-26 09:00:00 Outpatient R [facility] [id number] [facility] 2021-04-26 09:00:00 2021-04-26 09:00:00 Outpatient R AVELINO NGUYEN [facility] [id number] [facility] 2021-04-20 08:45:00 2021-04-20 08:45:00 Outpatient SARA DELGADILLO KIMBERLY [facility] [id number] [facility] 2021-04-11 08:40:00 2021-04-11 08:40:00 Outpatient SALLY FIGUEROA HOWARD [facility] [id number] [facility] 2021-04-11 08:40:00 2021-04-11 08:40:00 Outpatient SALLY FIGUEROA HOWARD [facility] [id number] [facility] 2021-03-21 08:00:00 2021-03-21 08:00:00 Outpatient SALLY FIGUEROA HOWARD [facility] [id number] [facility] 2021-03-17 00:00:00 2021-03-17 00:00:00 Patient Secure Msg Doctor Unassigned, [place] [facility] 1.2.840.114 350.1.13.10 4.2.7.2.686 [id number] [facility] 2021-03-17 00:00:00 2021-03-17 00:00:00 Patient Secure Msg Doctor Unassigned, [place] 1.2.840.1 48872.1.1 3.104.2.7 .3.852365 .8 [id number] [facility] 2021-03-17 00:00:00 2021-03-17 00:00:00 Patient Secure Msg Doctor Unassigned, [place] 1.2.840.1 88113.1.1 3.104.2.7 .3.397944 .8 [id number] [facility] 2021-03-16 13:15:00 2021-03-16 13:30:00 Bioinformatics Research Technician Visit Salbador [facility] 1.2.840.1 74432.1.1 3.104.2.7 .3.604866 .8 [id number] [facility] 2021-03-16 13:15:00 2021-03-16 13:30:00 Bioinformatics Research Technician Visit Salbador [facility] 1.2.840.1 68532.1.1 3.104.2.7 .3.900875 .8 [id number] [facility] 2021-03-16 13:15:00 2021-03-16 13:15:00 Outpatient SALBADOR CRONIN [facility] [id number] [facility] 2021-03-16 12:00:00 2021-03-16 12:09:51 Outpatient SARA DELGADILLO KIMBERLY [facility] [id number] [facility] 2021-03-16 12:00:00 2021-03-16 12:09:51 Outpatient SARA DELGADILLO KIMBERLY [facility] [id number] [facility] 2021-03-16 12:00:00 2021-03-16 12:00:00 Outpatient SARA DELGADILLO KIMBERLY [facility] [id number] [facility] 2021-03-16 00:00:00 2021-03-16 00:00:00 Travel 1.2.840.1 22654.1.1 3.104.2.7 .3.725615 .8 1.2.840.114 350.1.13.10 4.2.7.3.698 084.8 [id number] [facility] 2021-03-16 00:00:00 2021-03-16 00:00:00 Travel 1.2.840.1 02515.1.1 3.104.2.7 .3.720067 .8 1.2.840.114 350.1.13.10 4.2.7.3.698 084.8 [id number] [facility] 2021-03-11 09:44:00 2021-03-11 13:06:[address] [facility] ERT [id number] [facility] 2021-03-11 09:44:00 2021-03-11 13:06:00 Emergency Halima Connor 1.2.840.1 29193.1.1 3.104.2.7 .3.409938 .8 [id number] [facility] 2021-03-11 09:44:00 2021-03-11 13:06:[address] [facility] ERT [id number] [facility] 2021-03-11 09:44:00 2021-03-11 13:06:00 Emergency Halima Connor 1.2.840.1 37662.1.1 3.104.2.7 .3.014219 .8 [id number] [facility] 2021-03-11 09:44:00 2021-03-11 13:06:00 Emergency X HALIMA CONNOR [facility] ERT [id number] [facility] 2021-03-11 09:44:00 2021-03-11 09:44:00 Emergency X HALIMA CONNOR [facility] ERT [id number] [facility] 2021-03-11 00:00:00 2021-03-11 00:00:00 Travel 1.2.840.1 36195.1.1 3.104.2.7 .3.428775 .8 1.2.840.114 350.1.13.10 4.2.7.3.698 084.8 [id number] [facility] 2021-03-11 00:00:00 2021-03-11 00:00:00 Travel 1.2.840.1 72852.1.1 3.104.2.7 .3.080289 .8 1.2.840.114 350.1.13.10 4.2.7.3.698 084.8 [id number] [facility] 2021-03-08 15:00:00 2021-03-08 15:15:00 Bioinformatics Research Technician Visit Salbador [facility] 1.2.840.1 72862.1.1 3.104.2.7 .3.189747 .8 [id number] [facility] 2021-03-08 15:00:00 2021-03-08 15:15:00 Bioinformatics Research Technician Visit Salbador [facility] 1.2.840.1 45586.1.1 3.104.2.7 .3.880329 .8 [id number] [facility] 2021-03-08 15:00:00 2021-03-08 15:00:00 Outpatient R SALBADOR LOCKWOOD [facility] [id number] [facility] 2021-01-31 10:15:00 2021-01-31 10:55:06 Outpatient R LARISSA [facility] [id number] [facility] 2020-12-29 08:00:00 2020-12-29 08:41:00 Outpatient R SELF PHOEBE [facility] [id number] [facility] 2020-12-29 08:00:00 2020-12-29 08:41:00 Outpatient R SELF [facility] [id number] [facility] 2020-12-29 00:00:00 2020-12-29 00:00:00 Travel 1.2.840.1 12757.1.1 3.104.2.7 .3.110590 .8 1.2.840.114 350.1.13.10 4.2.7.3.698 084.8 [id number] [facility] 2020-12-29 00:00:00 2020-12-29 00:00:00 Travel 1.2.840.1 63419.1.1 3.104.2.7 .3.710811 .8 1.2.840.114 350.1.13.10 4.2.7.3.698 084.8 [id number] [facility] 2020-12-22 09:30:00 2020-12-22 09:30:00 Outpatient R LARISSA PHOEBE [facility] [id number] [facility] 2020-12-22 09:30:00 2020-12-22 09:30:00 Outpatient R SELF [facility] [id number] [facility] 2020-11-26 00:00:00 2020-11-26 00:00:00 Orders Only Doctor Unassigned, [place] [facility] 1.2.840.114 350.1.13.10 4.2.7.2.686 [id number] [facility] 2020-11-10 09:30:00 2020-11-10 09:30:00 Outpatient R ROBERT NOWAK [facility] [id number] [facility] 2020-11-10 00:00:00 2020-11-10 00:00:00 Orders Only Doctor Unassigned, [place] 1.2.840.1 05124.1.1 3.104.2.7 .3.675231 .8 [id number] [facility] 2020-11-10 00:00:00 2020-11-10 00:00:00 Travel 1.2.840.1 18905.1.1 3.104.2.7 .3.635517 .8 1.2.840.114 350.1.13.10 4.2.7.3.698 084.8 [id number] [facility] 2020-10-11 08:00:00 2020-10-11 08:00:00 Outpatient R DEXTER DIAS [facility] [id number] [facility] 2020-10-11 00:00:00 2020-10-11 00:00:00 Travel 1.2.840.1 06505.1.1 3.104.2.7 .3.886630 .8 1.2.840.114 350.1.13.10 4.2.7.3.698 084.8 [id number] [facility] 2020-09-13 08:00:00 2020-09-13 08:00:00 Outpatient R LARISSA PHOEBE [facility] [id number] [facility] 2020-09-13 00:00:00 2020-09-13 00:00:00 Travel 1.2.840.1 76987.1.1 3.104.2.7 .3.270783 .8 1.2.840.114 350.1.13.10 4.2.7.3.698 084.8 [id number] [facility] 2020-09-02 16:12:00 2020-09-02 20:21:00 Emergency Patti Rose 1.2.840.1 37700.1.1 3.104.2.7 .3.289982 .8 [id number] [facility] 2020-09-02 16:12:00 2020-09-02 20:21:00 Emergency Patti Rose [facility] [id number] [id number] 4.2.7.2.686 [id number] 2020-09-02 00:00:00 2020-09-02 00:00:00 Orders Only Doctor Unassigned, [place] [facility] [id number] 350.1.13.10 4.2.7.2.686 [id number] 2020-09-02 00:00:00 2020-09-02 00:00:00 Travel 1.2.840.1 [id number] 3.104.2.7 [id number] .[id number] 1.2.840.114 350.1.13.10 4.2.7.3.698 [id number] [facility] 2020-09-02 00:00:00 2020-09-02 00:00:00 Orders Only Doctor Unassigned, [place] 1.2.840.1 [id number] 3.104.2.7 [id number] [facility] 2020-08-25 09:15:00 2020-08-25 09:15:00 Outpatient R [facility] [id number] [facility] 2020-08-09 08:45:00 2020-08-09 08:45:00 Outpatient R DEXTER DIAS [facility] [id number] [facility] 2020-06-28 13:45:00 2020-06-28 13:45:00 Outpatient R SALBADOR LOCKWOOD [facility] [id number] [facility] 2020-06-21 15:15:00 2020-06-21 15:15:00 Outpatient R SELFDEXTER [facility] [id number] [facility] 2020-06-07 08:45:00 2020-06-07 08:45:00 Outpatient R SELFDEXTER [facility] [id number] [facility] 2020-05-25 08:30:00 2020-05-25 08:30:00 Outpatient R CRISTO MARTINEZ [facility] [id number] [facility] 2020-03-15 13:00:00 2020-03-15 13:00:00 Outpatient R SALBADOR LOCKWOOD [facility] [id number] [facility] 2020-03-08 13:00:00 2020-03-08 13:00:00 [id number] 2020-02-16 11:00:00 2020-02-16 11:00:00 [facility] [id number] [facility] 2020-01-27 11:45:00 2020-01-27 11:45:00 Outpatient R SELF, DEXTER [facility] [id number] [facility] 2020-01-19 08:00:00 2020-01-19 08:00:00 Outpatient R SELF, [facility] [id number] [facility] 2019-12-22 08:45:00 2019-12-22 08:45:00 Outpatient R SELF, DEXTER [facility] [id number] [facility] 2019-12-05 10:45:00 2019-12-05 10:45:00 Outpatient R JEWEL MORAES [facility] [id number] [facility] 2019-10-23 09:15:00 2019-10-23 09:15:00 Outpatient R KATH DELGADO [facility] [id number] [facility] 2019-10-15 11:30:00 2019-10-15 11:30:00 Outpatient R ROBERT NOWAK [facility] [id number] [facility] 2019-10-01 14:30:00 2019-10-01 14:30:00 Outpatient Tonya SHEROBERT [facility] [id number] [facility] 2019-09-01 08:45:00 2019-09-01 08:45:00 Outpatient DEXTER MIRELES [facility] [id number] [facility] 2019-08-06 13:00:00 2019-08-06 13:00:00 Outpatient Tonya SHALOM ANGELA [facility] [id number] [facility] Results Test Description Test Time Test Comments Results Result Co mments Source [facility] [id number] 00:00:00* Test Item Value Reference Range Interpretation Comme nts WBC (test code = 1001) 6.8 K/UL RBC (test code = 1002) 4.69 M/UL HEMOGLOBIN (test code = 1003) 10.9 G/DL HEMATOCRIT (test code = 1004) 35.8 % MCV (test code = 1005) 76.3 fL MCH (test code = 1006) 23.2 PG MCHC (test code = 1007) 30.4 G/DL RDW (test code = 1038) 22.0 % NEUTROPHILS (test code = 1008) 62.3 % LYMPHOCYTES (test code = 1010) 25.1 % MONOCYTES (test code = 1011) 6.6 % EOSINOPHILS (test code = 1012) 4.6 % BASOPHILS (test code = 1013) 1.0 % IMMATURE GRANULOCYTES (test code = 1036) 0.4 % NUCLEATED RBCS (test code = 1065) 0.0 /100WBC'S PLATELET COUNT (test code = 1015) 315 K/UL ABSOLUTE NEUTROPHILS (test c ode = 1066) 4.23 K/UL ABSOLUTE LYMPHOCYTES (test c ode = 1067) 1.71 K/UL ABSOLUTE MONOCYTES (test cod e = 1068) 0.45 K/UL ABSOLUTE EOSINOPHILS (test c ode = 1040) 0.31 K/UL ABSOLUTE BASOPHILS (test cod e = 1069) 0.07 K/UL ABS IMMATURE GRANULOCYTES (t est code = 1020) 0.03 K/UL ABS NUCLEATED RBCS (test cod e = 25918) 0.00 K/UL Robert [id number] 05:10:38* Test Item Value Reference Range Interpretation Comme nts FERRITIN (test code = 2075) 69 NG/ML 13-200 CBC W/AUTO DIFF WITH [id number] 02:22:56* Test Item Value Reference Range Interpretation Comme nts WBC (test code = 1001) 5.3 K/UL 3.5-11.0 RBC (test code = 1002) 4.38 M/UL 3.80-5.40 HEMOGLOBIN (test code = 1003) 10.0 G/DL 11.5-15.5 L HEMATOCRIT (test code = 1004) 33.1 % 34.0-45.0 L MCV (test code = 1005) 75.6 fL 80.0-99.0 L MCH (test code = 1006) 22.8 PG 25.0-33.0 L MCHC (test code = 1007) 30.2 G/DL 31.0-36.0 L RDW (test code = 1038) 21.4 % 11.5-15.0 H NEUTROPHILS (test code = 1008) 65.9 % LYMPHOCYTES (test code = 1010) 22.3 % MONOCYTES (test code = 1011) 4.7 % EOSINOPHILS (test code = 1012) 5.3 % BASOPHILS (test code = 1013) 0.9 % IMMATURE GRANULOCYTES (test code = 1036) 0.9 % NUCLEATED RBCS (test code = 1065) 0.0 /100 WBC'S See_Comment [Automated message] The system which generated this result transmitted reference range: 0.0. The reference range was not used to interpret this result as normal/abnormal. PLATELET COUNT (test code = 1015) 223 K/UL 130-400 ABSOLUTE NEUTROPHILS (test code = 1066) 3.47 K/UL 1.50-7.50 ABSOLUTE LYMPHOCYTES (test code = 1067) 1.18 K/UL 1.00-4.00 ABSOLUTE MONOCYTES (test code = 1068) 0.25 K/UL 0.20-1.00 ABSOLUTE EOSINOPHILS (test code = 1040) 0.28 K/UL 0.00-0.50 ABSOLUTE BASOPHILS (test code = 1069) 0.05 K/UL 0.00-0.20 ABS IMMATURE GRANULOCYTES (test code = 1020) 0.05 K/UL 0.00-0.10 ABS NUCLEATED RBCS (test code = 82590) 0.00 K/UL 0.00-0.11 UNLESS OTHER SPARROW INDICATED, ALL TESTING PERFORMED AT [facility] [address] [place] [address] PRODUCTION SUPERINTENDENT HYDRO: CHARLA HERNANDEZ M.D. [place] NUMBER [id number] [facility] [place]. [id number] 00:00:00* Test Item Value Reference Range Interpretation Comme nts FERRITIN (test code = 2075) 69 NG/ML Robert CaliCBC W/AUTO [id number] 00:00:00* Test Item Value Reference Range Interpretation Comme nts WBC (test code = 1001) 5.3 K/UL RBC (test code = 1002) 4.38 M/UL HEMOGLOBIN (test code = 1003) 10.0 G/DL HEMATOCRIT (test code = 1004) 33.1 % MCV (test code = 1005) 75.6 fL MCH (test code = 1006) 22.8 PG MCHC (test code = 1007) 30.2 G/DL RDW (test code = 1038) 21.4 % NEUTROPHILS (test code = 1008) 65.9 % LYMPHOCYTES (test code = 1010) 22.3 % MONOCYTES (test code = 1011) 4.7 % EOSINOPHILS (test code = 1012) 5.3 % BASOPHILS (test code = 1013) 0.9 % IMMATURE GRANULOCYTES (test code = 1036) 0.9 % NUCLEATED RBCS (test code = 1065) 0.0 /100WBC'S PLATELET COUNT (test code = 1015) 223 K/UL ABSOLUTE NEUTROPHILS (test c ode = 1066) 3.47 K/UL ABSOLUTE LYMPHOCYTES (test c ode = 1067) 1.18 K/UL ABSOLUTE MONOCYTES (test cod e = 1068) 0.25 K/UL ABSOLUTE EOSINOPHILS (test c ode = 1040) 0.28 K/UL ABSOLUTE BASOPHILS (test cod e = 1069) 0.05 K/UL ABS IMMATURE GRANULOCYTES (t est code = 1020) 0.05 K/UL ABS NUCLEATED RBCS (test cod e = 15985) 0.00 K/UL Robert [id number] 00:00:00* Test Item Value Reference Range Interpretation Comme nts FERRITIN (test code = 2075) 69 NG/ML Robert CaliCBC W/AUTO [id number] 00:00:00* Test Item Value Reference Range Interpretation Comme nts WBC (test code = 1001) 5.3 K/UL RBC (test code = 1002) 4.38 M/UL HEMOGLOBIN (test code = 1003) 10.0 G/DL HEMATOCRIT (test code = 1004) 33.1 % MCV (test code = 1005) 75.6 fL MCH (test code = 1006) 22.8 PG MCHC (test code = 1007) 30.2 G/DL RDW (test code = 1038) 21.4 % NEUTROPHILS (test code = 1008) 65.9 % LYMPHOCYTES (test code = 1010) 22.3 % MONOCYTES (test code = 1011) 4.7 % EOSINOPHILS (test code = 1012) 5.3 % BASOPHILS (test code = 1013) 0.9 % IMMATURE GRANULOCYTES (test code = 1036) 0.9 % NUCLEATED RBCS (test code = 1065) 0.0 /100WBC'S PLATELET COUNT (test code = 1015) 223 K/UL ABSOLUTE NEUTROPHILS (test c ode = 1066) 3.47 K/UL ABSOLUTE LYMPHOCYTES (test c ode = 1067) 1.18 K/UL ABSOLUTE MONOCYTES (test cod e = 1068) 0.25 K/UL ABSOLUTE EOSINOPHILS (test c ode = 1040) 0.28 K/UL ABSOLUTE BASOPHILS (test cod e = 1069) 0.05 K/UL ABS IMMATURE GRANULOCYTES (t est code = 1020) 0.05 K/UL ABS NUCLEATED RBCS (test cod e = 49167) 0.00 K/UL Robert CaliYAZMIN (ANTI-NUCLEAR AB) WITH REFLEX [id number] 06:46:04* Test Item Value Reference Range Interpretation Comme nts ANTI-NUCLEAR ANTIBODIES (test code = 3506) NEGATIVE NEGATIVE Methodology is I ndirect Immunofluorescent Assay (IFA) with a titering system using [id number] cells (Hep2 cells transfected with SS-A/Ro). YAZMIN PATTERN (REPORTED TITER) (test code = 22082) SEE BELOW HOMOGENEOUS (test code = 06786) NEGATIVE TITER NEGATIVE SPECKLED (test code = 202018) NEGATIVE TITER NEGATIVE DENSE FINE SPECKLED (test code = 44772) NEGATIVE TITER NEGATIVE CENTROMERE (test code = 398014) NEGATIVE TITER NEGATIVE COARSE SPECKLED (test code = 152773) NEGATIVE TITER NEGATIVE DISCRETE NUCLEAR DOTS (test code = 149176) NEGATIVE TITER NEGATIVE NUCLEOLAR (test code = 493471) NEGATIVE TITER NEGATIVE NUCLEAR MEMBRANE (test code = 535665) NEGATIVE TITER NEGATIVE CYTO. RETICULAR (SANDY) (test code = 927328) NEGATIVE NEGATIVE COMMENTS (test code = 531677) NONE METHOD (test code = 44143) (NOTE) TESTING PERFORME D BY [employer] IFA PLATFORM.THE METHOD INCLUDES A SCREEN THRESHOLD OF 1:80, DIGITIZED AND COMPUTER ALGORITHM-ASSISTED INTERPRETATION OF TITERS AND DIGITAL PATTERNS, AND HEp-2 CELL LINE SUBSTRATE. ADDITIONAL UNUSUAL PATTERNS WILL BE GIVEN COMMENTS.FOR MORE INFORMATION, SEE [email or web address] UNLESS OTHERWISE INDICATED, ALL TESTING PERFORMED AT [facility] [address] [place] [address] PRODUCTION SUPERINTENDENT HYDRO: CHARLA HERNANDEZ M.D. [place] NUMBER [id number] [facility] [place]. [id number] NOTE:2023-12-07 06:05:36* Test Item Value Reference Range Interpretation Comme nts NOTE: (test code = 998) (NOTE) IN ACCORDANCE [facility] FEDERAL GUIDELINES REQUIRING ALL VERBAL REQUESTS FOR LABORATORY TESTS TO BE ACCOMPANIED BY WRITTEN AUTHORIZATION WITHIN 30 DAYS OF THIS REQUEST, PLEASE SIGN BELOW AND RETURN A COPY OF THIS REPORT BY FAX TO THE LABORATORY SCANNING DEPARTMENT AT [phone]. PHYSICIAN'S SIGNATURE DATE NOTE: [ADDED]2023-12-07 00:00:00* Test Item Value Reference Range Interpretation Comme nts NOTE: (test code = 998) (NOTE) Robert Bailon (ANTI-NUCLEAR AB) WITH REFLEX TITER [ADDED]2023-12-07 00:00:00* Test Item Value Reference Range Interpretation Comme nts ANTI-NUCLEAR ANTIBODIES (aram t code = 3506) NEGATIVE YAZMIN PATTERN (REPORTED TITER) (test code = 65803) SEE BELOW HOMOGENEOUS (test code = 24055) NEGATIVE TITER SPECKLED (test code = 382805) NEGATIVE TITER DENSE FINE SPECKLED (test co de = 93252) NEGATIVE TITER CENTROMERE (test code = 284993) NEGATIVE TITER COARSE SPECKLED (test code = 378676) NEGATIVE TITER DISCRETE NUCLEAR DOTS (test code = 383659) NEGATIVE TITER NUCLEOLAR (test code = 157866) NEGATIVE TITER NUCLEAR MEMBRANE (test code = 367204) NEGATIVE TITER CYTO. RETICULAR (SANDY) (test code = 447506) NEGATIVE COMMENTS (test code = 742748) NONE METHOD (test code = 04527) (NOTE) Robert Ambrose VirajNOTE: [ADDED]2023-12-07 00:00:00* Test Item Value Reference Range Interpretation Comme nts NOTE: (test code = 998) (NOTE) Robert Bailon (ANTI-NUCLEAR AB) WITH REFLEX TITER [ADDED]2023-12-07 00:00:00* Test Item Value Reference Range Interpretation Comme nts ANTI-NUCLEAR ANTIBODIES (aram t code = 3506) NEGATIVE YAZMIN PATTERN (REPORTED TITER) (test code = 37889) SEE BELOW HOMOGENEOUS (test code = 97189) NEGATIVE TITER SPECKLED (test code = 290637) NEGATIVE TITER DENSE FINE SPECKLED (test co de = 70219) NEGATIVE TITER CENTROMERE (test code = 998900) NEGATIVE TITER COARSE SPECKLED (test code = 678062) NEGATIVE TITER DISCRETE NUCLEAR DOTS (test code = 393993) NEGATIVE TITER NUCLEOLAR (test code = 286852) NEGATIVE TITER NUCLEAR MEMBRANE (test code = 627645) NEGATIVE TITER CYTO. RETICULAR (SANDY) (test code = 622318) NEGATIVE COMMENTS (test code = 810025) NONE METHOD (test code = 90883) (NOTE) Robert Ambrose VirajNOTE: [ADDED]2023-12-07 00:00:00* Test Item Value Reference Range Interpretation Comme nts NOTE: (test code = 998) (NOTE) Robert Bailon (ANTI-NUCLEAR AB) WITH REFLEX TITER [ADDED]2023-12-07 00:00:00* Test Item Value Reference Range Interpretation Comme nts ANTI-NUCLEAR ANTIBODIES (aram t code = 3506) NEGATIVE YAZMIN PATTERN (REPORTED TITER) (test code = 09247) SEE BELOW HOMOGENEOUS (test code = 80393) NEGATIVE TITER SPECKLED (test code = 973154) NEGATIVE TITER DENSE FINE SPECKLED (test co de = 96641) NEGATIVE TITER CENTROMERE (test code = 156390) NEGATIVE TITER COARSE SPECKLED (test code = 872218) NEGATIVE TITER DISCRETE NUCLEAR DOTS (test code = 102812) NEGATIVE TITER NUCLEOLAR (test code = 248765) NEGATIVE TITER NUCLEAR MEMBRANE (test code = 098765) NEGATIVE TITER CYTO. RETICULAR (SANDY) (test code = 631701) NEGATIVE COMMENTS (test code = 666971) NONE METHOD (test code = 27080) (NOTE) Robert Ambrose AustinPROTEIN ELECTROPHORESIS, [id number] 14:58:50* Test Item Value Reference Range Interpretation Comme nts ALBUMIN (test code = 2554) 4.2 G/DL 2.8-4.9 % ALBUMIN (test code = 2562) 63 % GLOBULIN (test code = 2555) 2.5 G/DL 2.0-3.8 A/G RATIO (test code = 2561) 1.7 RATIO 1.2-1.9 ALPHA-1 (test code = 2556) 0.3 G/DL 0.2-0.5 % ALPHA-1 (test code = 2563) 4 % ALPHA-2 (test code = 2557) 0.8 G/DL 0.5-1.0 % ALPHA-2 (test code = 2564) 12 % BETA (test code = 2558) 0.9 G/DL 0.5-1.2 % BETA (test code = 2565) 13 % GAMMA (test code = 2559) 0.6 G/DL 0.7-1.5 L % GAMMA (test code = 2566) 8 % PROTEIN, TOTAL (test code = 2229) 6.7 G/DL 6.1-8.3 INTERPRETATION, SPEP: (test code = 2568) (NOTE) MILD HYPOGAMMAGL OBULINEMIA. NO MONOCLONAL PROTEIN SEEN. THE DIFFERENTIAL DIAGNOSIS INCLUDES HUMORAL IMMUNODEFICIENCY (CONGENITAL,IDIOPATHIC, DISEASE-RELATED, THERAPY-RELATED/IATROGENIC ETC.), LIGHTCHAIN DISEASE, LOW LEVEL MONOCLONAL PROTEIN OR AMYLOIDOSIS. IF UNDIAGNOSED, FURTHER EVALUATION CAN INCLUDE SERUM FREE LIGHT CHAINANALYSIS, URINE IMMUNOELECTROPHORESIS OR SERUM IMMUNOELECTROPHORESIS.THIS RESULT DOES NOT MEET CRITERIA FOR REFLEX TESTING, BUT SERUM IMMUNOELECTROPHORESIS CAN BE ADDED ON THIS SPECIMEN (CALL LABORATORYTO ADD APPROPRIATE TESTING CLINICALLY INDICATED) AVA HUSSEIN M.D. VITAMIN B 12 AND FOLIC [id number] 05:31:25* Test Item Value Reference Range Interpretation Comme [facility] VITAMIN B-12 (test code = 2840) 380 [...] . . . UG/L >=6.0 COMPREHENSIVE METABOLIC [id number] 04:03:47* Test Item Value Reference Range Interpretation Comme [facility] GLUCOSE (test code = 2216) 95 MG/DL 70-99 BUN (test code = 2207) 13 MG/DL 6-20 CREATININE (test code = 2213) 0.65 MG/DL 0.60-1.30 eGFR (2020 CKD-EPI) (test code = 33373) 110 ML/MIN/1.73 >60 CALC BUN/CREAT (test code = 2235) 20 RATIO 6-28 SODIUM (test code = 223) 139 MEQ/L 133-146 POTASSIUM (test code = 2228) 4.6 MEQ/L 3.5-5.4 CHLORIDE (test code = 2215) 103 MEQ/L 95-107 CARBON DIOXIDE (test code = 2206) 25 MEQ/L 19-31 CALCIUM (test code = 9) 10.1 MG/DL 8.5-10.5 PROTEIN, TOTAL (test code = 2228) 6.7 G/DL 6.1-8.3 ALBUMIN (test code = 220) 4.5 G/DL 3.5-5.2 CALC GLOBULIN (test code = 2240) 2.2 G/DL 1.9-3.7 CALC A/G RATIO (test code = 2233) 2.0 RATIO 1.0-2.6 BILIRUBIN, TOTAL (test code = 2206) <0.2 MG/DL <=1.2 ALKALINE PHOSPHATASE (test code = 2203) 144 U/L 40-118 H AST (test code = 8) 16 U/L 9-40 ALT (test code = 2219) 16 U/L 5-40 UNLESS OTHERWISE INDICATED, ALL TESTING PERFORMED AT [facility] [address] [place] [address] PRODUCTION SUPERINTENDENT HYDRO: CHARLA HERNANDEZ M.D. CLIA NUMBER [id number] [facility] [place]. [id number] CBC W/AUTO DIFF WITH [id number] 03:00:25* Test Item Value Reference Range Interpretation [...] 0.00-0.10 ABS NUCLEATED RBCS (test code = 05075) 0.00 K/UL 0.00-0.11 VITAMIN B 12 AND FOLIC [id number] 00:00:00* Test Item Value Reference Range Interpretation Comme nts VITAMIN B-12 (test code = 2840) 380 PG/ML FOLIC ACID (test code = 2695) 7.0 UG/L Robert CaliPROTEIN ELECTROPHORESIS, [id number] 00:00:00* Test Item Value Reference Range Interpretation Comme nts ALBUMIN (test code = 2554) 4.2 G/DL % ALBUMIN (test code = 2562) 63 % GLOBULIN (test code = 2555) 2.5 G/DL A/G RATIO (test code = 2561) 1.7 RATIO ALPHA-1 (test code = 2556) 0.3 G/DL % ALPHA-1 (test code = 2563) 4 % ALPHA-2 (test code = 2557) 0.8 G/DL % ALPHA-2 (test code = 2564) 12 % BETA (test code = 2558) 0.9 G/DL % BETA (test code = 2565) 13 % GAMMA (test code = 2559) 0.6 G/DL % GAMMA (test code = 2566) 8 % PROTEIN, TOTAL (test code = 2229) 6.7 G/DL INTERPRETATION, SPEP: (test code = 2568) (NOTE) Robert CaliCBC W/AUTO [id number] 00:00:00* Test Item Value Reference Range Interpretation Comme nts WBC (test code = 1001) 8.1 K/UL RBC (test code = 1002) 4.41 M/UL HEMOGLOBIN (test code = 1003) 9.4 G/DL HEMATOCRIT (test code = 1004) 32.1 % MCV (test code = 1005) 72.8 fL MCH (test code = 1006) 21.3 PG MCHC (test code = 1007) 29.3 G/DL RDW (test code = 1038) 17.6 % NEUTROPHILS (test code = 1008) 70.4 % LYMPHOCYTES (test code = 1010) 18.5 % MONOCYTES (test code = 1011) 6.4 % EOSINOPHILS (test code = 1012) 3.5 % BASOPHILS (test code = 1013) 0.7 % IMMATURE GRANULOCYTES (test code = 1036) 0.5 % NUCLEATED RBCS (test code = 1065) 0.0 /100WBC'S PLATELET COUNT (test code = 1015) 288 K/UL ABSOLUTE NEUTROPHILS (test c ode = 1066) 5.68 K/UL ABSOLUTE LYMPHOCYTES (test c ode = 1067) 1.49 K/UL ABSOLUTE MONOCYTES (test cod e = 1068) 0.52 K/UL ABSOLUTE EOSINOPHILS (test c ode = 1040) 0.28 K/UL ABSOLUTE BASOPHILS (test cod e = 1069) 0.06 K/UL ABS IMMATURE GRANULOCYTES (t est code = 1020) 0.04 K/UL ABS NUCLEATED RBCS (test cod e = 27843) 0.00 K/UL Robert CaliCOMPREHENSIVE METABOLIC [id number] 00:00:00* Test Item Value Reference Range Interpretation Comme nts GLUCOSE (test code = 2217) 95 MG/DL BUN (test code = 2208) 13 MG/DL CREATININE (test code = 2214) 0.65 MG/DL eGFR (2020 CKD-EPI) (test code = 92796) 110 ML/MIN/1.73 CALC BUN/CREAT (test code = 2235) 20 RATIO SODIUM (test code = 2231) 139 MEQ/L POTASSIUM (test code = 2228) 4.6 MEQ/L CHLORIDE (test code = 2215) 103 MEQ/L CARBON DIOXIDE (test code = 2206) 25 MEQ/L CALCIUM (test code = 2209) 10.1 MG/DL PROTEIN, TOTAL (test code = 2229) 6.7 G/DL ALBUMIN (test code = 2201) 4.5 G/DL CALC GLOBULIN (test code = 2240) 2.2 G/DL CALC A/G RATIO (test code = 2234) 2.0 RATIO BILIRUBIN, TOTAL (test code = 2207) <0.2 MG/DL ALKALINE PHOSPHATASE (test code = 2204) 144 U/L AST (test code = 2218) 16 U/L ALT (test code = 2219) 16 U/L Robert CaliVITAMIN B 12 AND FOLIC [id number] 00:00:00* Test Item Value Reference Range Interpretation Comme nts VITAMIN B-12 (test code = 2840) 380 PG/ML FOLIC ACID (test code = 2695) 7.0 UG/L Robert CaliPROTEIN ELECTROPHORESIS, [id number] 00:00:00* Test Item Value Reference Range Interpretation Comme nts ALBUMIN (test code = 2554) 4.2 G/DL % ALBUMIN (test code = 2562) 63 % GLOBULIN (test code = 2555) 2.5 G/DL A/G RATIO (test code = 2561) 1.7 RATIO ALPHA-1 (test code = 2556) 0.3 G/DL % ALPHA-1 (test code = 2563) 4 % ALPHA-2 (test code = 2557) 0.8 G/DL % ALPHA-2 (test code = 2564) 12 % BETA (test code = 2558) 0.9 G/DL % BETA (test code = 2565) 13 % GAMMA (test code = 2559) 0.6 G/DL % GAMMA (test code = 2566) 8 % PROTEIN, TOTAL (test code = 2229) 6.7 G/DL INTERPRETATION, SPEP: (test code = 2568) (NOTE) Robert Ambrose VirajCBC W/AUTO [id number] 00:00:00* Test Item Value Reference Range Interpretation Comme nts WBC (test code = 1001) 8.1 K/UL RBC (test code = 1002) 4.41 M/UL HEMOGLOBIN (test code = 1003) 9.4 G/DL HEMATOCRIT (test code = 1004) 32.1 % MCV (test code = 1005) 72.8 fL MCH (test code = 1006) 21.3 PG MCHC (test code = 1007) 29.3 G/DL RDW (test code = 1038) 17.6 % NEUTROPHILS (test code = 1008) 70.4 % LYMPHOCYTES (test code = 1010) 18.5 % MONOCYTES (test code = 1011) 6.4 % EOSINOPHILS (test code = 1012) 3.5 % BASOPHILS (test code = 1013) 0.7 % IMMATURE GRANULOCYTES (test code = 1036) 0.5 % NUCLEATED RBCS (test code = 1065) 0.0 /100WBC'S PLATELET COUNT (test code = 1015) 288 K/UL ABSOLUTE NEUTROPHILS (test c ode = 1066) 5.68 K/UL ABSOLUTE LYMPHOCYTES (test c ode = 1067) 1.49 K/UL ABSOLUTE MONOCYTES (test cod e = 1068) 0.52 K/UL ABSOLUTE EOSINOPHILS (test c ode = 1040) 0.28 K/UL ABSOLUTE BASOPHILS (test cod e = 1069) 0.06 K/UL ABS IMMATURE GRANULOCYTES (t est code = 1020) 0.04 K/UL ABS NUCLEATED RBCS (test cod e = 17829) 0.00 K/UL Robert Arnol VirajCOMPREHENSIVE METABOLIC [id number] 00:00:00* Test Item Value Reference Range Interpretation Comme nts GLUCOSE (test code = 2217) 95 MG/DL BUN (test code = 2208) 13 MG/DL CREATININE (test code = 2214) 0.65 MG/DL eGFR (2020 CKD-EPI) (test code = 07882) 110 ML/MIN/1.73 CALC BUN/CREAT (test code = 2235) 20 RATIO SODIUM (test code = 2231) 139 MEQ/L POTASSIUM (test code = 2228) 4.6 MEQ/L CHLORIDE (test code = 2215) 103 MEQ/L CARBON DIOXIDE (test code = 2206) 25 MEQ/L CALCIUM (test code = 2209) 10.1 MG/DL PROTEIN, TOTAL (test code = 2229) 6.7 G/DL ALBUMIN (test code = 2201) 4.5 G/DL CALC GLOBULIN (test code = 2240) 2.2 G/DL CALC A/G RATIO (test code = 2234) 2.0 RATIO BILIRUBIN, TOTAL (test code = 2207) <0.2 MG/DL ALKALINE PHOSPHATASE (test code = 2204) 144 U/L AST (test code = 2218) 16 U/L ALT (test code = 2219) 16 U/L Robert Arnol VirajVITAMIN B 12 AND FOLIC [id number] 00:00:00* Test Item Value Reference Range Interpretation Comme nts VITAMIN B-12 (test code = 2840) 380 PG/ML FOLIC ACID (test code = 2695) 7.0 UG/L Robert Arnol VirajPROTEIN ELECTROPHORESIS, [id number] 00:00:00* Test Item Value Reference Range Interpretation Comme nts ALBUMIN (test code = 2554) 4.2 G/DL % ALBUMIN (test code = 2562) 63 % GLOBULIN (test code = 2555) 2.5 G/DL A/G RATIO (test code = 2561) 1.7 RATIO ALPHA-1 (test code = 2556) 0.3 G/DL % ALPHA-1 (test code = 2563) 4 % ALPHA-2 (test code = 2557) 0.8 G/DL % ALPHA-2 (test code = 2564) 12 % BETA (test code = 2558) 0.9 G/DL % BETA (test code = 2565) 13 % GAMMA (test code = 2559) 0.6 G/DL % GAMMA (test code = 2566) 8 % PROTEIN, TOTAL (test code = 2229) 6.7 G/DL INTERPRETATION, SPEP: (test code = 2568) (NOTE) [facility] [id number] 00:00:00* Test Item Value Reference Range Interpretation Comme nts WBC (test code = 1001) 8.1 K/UL RBC (test code = 1002) 4.41 M/UL HEMOGLOBIN (test code = 1003) 9.4 G/DL HEMATOCRIT (test code = 1004) 32.1 % MCV (test code = 1005) 72.8 fL MCH (test code = 1006) 21.3 PG MCHC (test code = 1007) 29.3 G/DL RDW (test code = 1038) 17.6 % NEUTROPHILS (test code = 1008) 70.4 % LYMPHOCYTES (test code = 1010) 18.5 % MONOCYTES (test code = 1011) 6.4 % EOSINOPHILS (test code = 1012) 3.5 % BASOPHILS (test code = 1013) 0.7 % IMMATURE GRANULOCYTES (test code = 1036) 0.5 % NUCLEATED RBCS (test code = 1065) 0.0 /100WBC'S PLATELET COUNT (test code = 1015) 288 K/UL ABSOLUTE NEUTROPHILS (test c ode = 1066) 5.68 K/UL ABSOLUTE LYMPHOCYTES (test c ode = 1067) 1.49 K/UL ABSOLUTE MONOCYTES (test cod e = 1068) 0.52 K/UL ABSOLUTE EOSINOPHILS (test c ode = 1040) 0.28 K/UL ABSOLUTE BASOPHILS (test cod e = 1069) 0.06 K/UL ABS IMMATURE GRANULOCYTES (t est code = 1020) 0.04 K/UL ABS NUCLEATED RBCS (test cod e = 93305) 0.00 K/UL Robert CaliCOMPREHENSIVE METABOLIC [id number] 00:00:00* Test Item Value Reference Range Interpretation Comme nts GLUCOSE (test code = 2217) 95 MG/DL BUN (test code = 2208) 13 MG/DL CREATININE (test code = 2214) 0.65 MG/DL eGFR (2020 CKD-EPI) (test code = 79649) 110 ML/MIN/1.73 CALC BUN/CREAT (test code = 2235) 20 RATIO SODIUM (test code = 2231) 139 MEQ/L POTASSIUM (test code = 2228) 4.6 MEQ/L CHLORIDE (test code = 2215) 103 MEQ/L CARBON DIOXIDE (test code = 2206) 25 MEQ/L CALCIUM (test code = 2209) 10.1 MG/DL PROTEIN, TOTAL (test code = 2229) 6.7 G/DL ALBUMIN (test code = 2201) 4.5 G/DL CALC GLOBULIN (test code = 2240) 2.2 G/DL CALC A/G RATIO (test code = 2234) 2.0 RATIO BILIRUBIN, TOTAL (test code = 2207) <0.2 MG/DL ALKALINE PHOSPHATASE (test code = 2204) 144 U/L AST (test code = 2218) 16 U/L ALT (test code = 2219) 16 U/L Robert CaliHAPTOGLOBIN, [id number] 13:13:35* Test Item Value Reference Range Interpretation Comme nts HAPTOGLOBIN, QUANT (test cod e = 63916) 227 MG/DL 32-197 H [id number] 05:29:31* Test Item Value Reference Range Interpretation Comme nts TRANSFERRIN (test code = 4936) 380 MG/DL 200-360 H [id number] 05:29:31* Test Item Value Reference Range Interpretation Comme nts LDH (test code = 4) 186 U/L 135-214 [id number] 04:14:38* Test Item Value Reference Range Interpretation Comme nts FERRITIN (test code = 2075) 6 NG/ML 13-200 L VITAMIN D, 25 [id number] 04:14:10* Test Item Value Reference Range Interpretation [...] IRON BINDING CAPACITY AND IRON AND % [id number] 04:13:51* Test Item Value Reference Range Interpretation Comme nts IRON, SERUM (test code = 2222) 25 UG/DL 37-145 L UNSATURATED IBC (test code = 45483) 425 UG/DL 112-347 H CALC TOTAL IBC (test code = 2077) 450 UG/DL 250-450 CALC % IRON SAT (test code = 2079) 6 % 20-50 L URIC [id number] 04:13:51* Test Item Value Reference Range Interpretation Comme nts URIC ACID (test code = 2233) 5.8 MG/DL 2.7-6.1 UNLESS OTHERWISE INDICATED, ALL TESTING PERFORMED AT [facility] [address] [place] [address] PRODUCTION SUPERINTENDENT HYDRO: CHARLA HERNANDEZ M.D. CLIA NUMBER [id number] [facility] [place]. [id number] LIPID [id number] 04:13:51* Test Item Value Reference Range Interpretation [...] SPECIMENS. FOR MOREINFORMATION, SEE CLIENT ANNOUNCEMENT AT [email or web address] RISK RATIO LDL/HDL (test code = 223) 2.58 RATIO <3.22 COMPREHENSIVE METABOLIC [id number] 04:13:51* Test Item Value Reference Range Interpretation Comme nts GLUCOSE (test code = 7) 97 MG/DL 70-99 BUN (test code = 2207) 9 MG/DL 6-20 CREATININE (test code = 221) 0.86 MG/DL 0.60-1.30 eGFR (2020 CKD-EPI) (test co de = 40353) 84 ML/MIN/1.73 >60 CALC BUN/CREAT (test code = 2235) 10 RATIO 6-28 SODIUM (test code = 223) 140 MEQ/L 133-146 POTASSIUM (test code = 222) 4.4 MEQ/L 3.5-5.4 CHLORIDE (test code = 221) 104 MEQ/L 95-107 CARBON DIOXIDE (test code = 2206) 25 MEQ/L 19-31 CALCIUM (test code = 2208) 9.3 MG/DL 8.5-10.5 PROTEIN, TOTAL (test code = 2228) 6.5 G/DL 6.1-8.3 ALBUMIN (test code = 220) 4.4 G/DL 3.5-5.2 CALC GLOBULIN (test code = 2240) 2.1 G/DL 1.9-3.7 CALC A/G RATIO (test code = 2234) 2.1 RATIO 1.0-2.6 BILIRUBIN, TOTAL (test code = 2206) <0.2 MG/DL <=1.2 ALKALINE PHOSPHATASE (test code = 2203) 149 U/L 40-118 H AST (test code = 2217) 17 U/L 9-40 ALT (test code = 2219) 22 U/L 5-40 HEMOGLOBIN [id number] 03:10:06* Test Item Value Reference Range Interpretation Comme [facility] HEMOGLOBIN A1c (test code = 34525) 5.6 % 4.2-5.6 CBC W/AUTO DIFF RFLX SMEAR [id number] 02:37:07* Test Item Value Reference Range Interpretation Comme [facility] WBC (test code = 1001) 6.2 K/UL [...] MANUAL DIFFERENTIAL WILL BE PERFORMED IF INDICATED.SEE [email or web address] CONTACT YOUR LOCAL [employer] CUSTOMER SERVICEDEPARTMENT FOR FURTHER INFORMATION. LYMPHOCYTES (test [...] 0.00-0.10 ABS NUCLEATED RBCS (test code = 94163) 0.00 K/UL 0.00-0.11 RETICULOCYTE WITH [id number] 02:37:07* Test Item Value Reference Range Interpretation Comme nts RETICULOCYTE COUNT (test cod e = 1018) 2.55 % 0.80-2.40 H ABSOLUTE RETICULOCYTE (test code = 32051) 115.0 K/UL 32.0-105.0 H HEMOGLOBIN [id number] 00:00:00* Test Item Value Reference Range Interpretation Comme [facility] HEMOGLOBIN A1c (test code = 45374) 5.6 % Robert CaliLIPID [id number] 00:00:00* Test Item Value Reference Range Interpretation Comme nts CHOLESTEROL (test code = 2210) 212 MG/DL TRIGLYCERIDES (test code = 2232) 116 MG/DL HDL CHOLESTEROL (test code = 2220) 53 MG/DL CALC LDL CHOL (test code = 2237) 137 MG/DL RISK RATIO LDL/HDL (test cod e = 2238) 2.58 RATIO Robert CaliCOMPREHENSIVE METABOLIC [id number] 00:00:00* Test Item Value Reference Range Interpretation Comme nts GLUCOSE (test code = 2217) 97 MG/DL BUN (test code = 2208) 9 MG/DL CREATININE (test code = 2214) 0.86 MG/DL eGFR (2020 CKD-EPI) (test co de = 34630) 84 ML/MIN/1.73 CALC BUN/CREAT (test code = 2235) 10 RATIO SODIUM (test code = 2231) 140 MEQ/L POTASSIUM (test code = 2228) 4.4 MEQ/L CHLORIDE (test code = 2215) 104 MEQ/L CARBON DIOXIDE (test code = 2206) 25 MEQ/L CALCIUM (test code = 2209) 9.3 MG/DL PROTEIN, TOTAL (test code = 2229) 6.5 G/DL ALBUMIN (test code = 2201) 4.4 G/DL CALC GLOBULIN (test code = 2240) 2.1 G/DL CALC A/G RATIO (test code = 2234) 2.1 RATIO BILIRUBIN, TOTAL (test code = 2207) <0.2 MG/DL ALKALINE PHOSPHATASE (test code = 2204) 149 U/L AST (test code = 2218) 17 U/L ALT (test code = 2219) 22 U/L Robert CaliVITAMIN D, 25 [id number] 00:00:00* Test Item Value Reference Range Interpretation Comme [facility] VITAMIN D, 25 OH (test code = 4958) 18 NG/ML Robert CaliCBC W/AUTO DIFF RFLX SMEAR [id number] 00:00:00* Test Item Value Reference Range Interpretation Comme nts WBC (test code = 1001) 6.2 K/UL RBC (test code = 1002) 4.51 M/UL HEMOGLOBIN (test code = 1003) 9.7 G/DL HEMATOCRIT (test code = 1004) 32.6 % MCV (test code = 1005) 72.3 fL MCH (test code = 1006) 21.5 PG MCHC (test code = 1007) 29.8 G/DL RDW (test code = 1038) 17.0 % NEUTROPHILS (test code = 1008) 69.7 % LYMPHOCYTES (test code = 1010) 19.5 % MONOCYTES (test code = 1011) 5.6 % EOSINOPHILS (test code = 1012) 4.3 % BASOPHILS (test code = 1013) 0.6 % IMMATURE GRANULOCYTES (test code = 1036) 0.3 % NUCLEATED RBCS (test code = 1065) 0.0 /100WBC'S PLATELET COUNT (test code = 1015) 218 K/UL ABSOLUTE NEUTROPHILS (test c ode = 1066) 4.32 K/UL ABSOLUTE LYMPHOCYTES (test c ode = 1067) 1.21 K/UL ABSOLUTE MONOCYTES (test cod e = 1068) 0.35 K/UL ABSOLUTE EOSINOPHILS (test c ode = 1040) 0.27 K/UL ABSOLUTE BASOPHILS (test cod e = 1069) 0.04 K/UL ABS IMMATURE GRANULOCYTES (t est code = 1020) 0.02 K/UL ABS NUCLEATED RBCS (test cod e = 33204) 0.00 K/UL Robert CaliRETICULOCYTE WITH [id number] 00:00:00* Test Item Value Reference Range Interpretation Comme nts RETICULOCYTE COUNT (test cod e = 1018) 2.55 % ABSOLUTE RETICULOCYTE (test code = 86311) 115.0 K/UL Robert CaliHAPTOGLOBIN, [id number] 00:00:00* Test Item Value Reference Range Interpretation Comme nts HAPTOGLOBIN, QUANT (test cod e = 71310) 227 MG/DL Robert [id number] 00:00:00* Test Item Value Reference Range Interpretation Comme nts LDH (test code = 4) 186 U/L Robert CaliIRON BINDING CAPACITY AND IRON AND % [id number] 00:00:00* Test Item Value Reference Range Interpretation Comme nts IRON, SERUM (test code = 2221) 25 UG/DL UNSATURATED IBC (test code = 55525) 425 UG/DL CALC TOTAL IBC (test code = 2076) 450 UG/DL CALC % IRON SAT (test code = 2078) 6 % Robert [id number] 00:00:00* Test Item Value Reference Range Interpretation Comme nts FERRITIN (test code = 2074) 6 NG/ML Robert Ambrose [id number] 00:00:00* Test Item Value Reference Range Interpretation Comme nts TRANSFERRIN (test code = 4936) 380 MG/DL Robert Ambrose AustinURIC [id number] 00:00:00* Test Item Value Reference Range Interpretation Comme nts URIC ACID (test code = 2232) 5.8 MG/DL Robert CaliHEMOGLOBIN [id number] 00:00:00* Test Item Value Reference Range Interpretation Comme evelia HEMOGLOBIN A1c (test code = 04784) 5.6 % Robert CaliLIPID [id number] 00:00:00* Test Item Value Reference Range Interpretation Comme nts CHOLESTEROL (test code = 2210) 212 MG/DL TRIGLYCERIDES (test code = 2) 116 MG/DL HDL CHOLESTEROL (test code = 0) 53 MG/DL CALC LDL CHOL (test code = 7) 137 MG/DL RISK RATIO LDL/HDL (test cod e = 2238) 2.58 RATIO Robert CaliCOMPREHENSIVE METABOLIC [id number] 00:00:00* Test Item Value Reference Range Interpretation Comme nts GLUCOSE (test code = 2217) 97 MG/DL BUN (test code = 2208) 9 MG/DL CREATININE (test code = 2214) 0.86 MG/DL eGFR (2020 CKD-EPI) (test co de = ) 84 ML/MIN/1.73 CALC BUN/CREAT (test code = 2235) 10 RATIO SODIUM (test code = 2231) 140 MEQ/L POTASSIUM (test code = 2228) 4.4 MEQ/L CHLORIDE (test code = 2215) 104 MEQ/L CARBON DIOXIDE (test code = 2206) 25 MEQ/L CALCIUM (test code = 2209) 9.3 MG/DL PROTEIN, TOTAL (test code = 2229) 6.5 G/DL ALBUMIN (test code = 2201) 4.4 G/DL CALC GLOBULIN (test code = 2240) 2.1 G/DL CALC A/G RATIO (test code = 2234) 2.1 RATIO BILIRUBIN, TOTAL (test code = 2207) <0.2 MG/DL ALKALINE PHOSPHATASE (test code = 2204) 149 U/L AST (test code = 2218) 17 U/L ALT (test code = 2219) 22 U/L Robert CaliVITAMIN D, 25 [id number] 00:00:00* Test Item Value Reference Range Interpretation Comme [facility] VITAMIN D, 25 OH (test code = 4958) 18 NG/ML Robert CaliCBC W/AUTO DIFF RFLX SMEAR [id number] 00:00:00* Test Item Value Reference Range Interpretation Comme nts WBC (test code = 1001) 6.2 K/UL RBC (test code = 1002) 4.51 M/UL HEMOGLOBIN (test code = 1003) 9.7 G/DL HEMATOCRIT (test code = 1004) 32.6 % MCV (test code = 1005) 72.3 fL MCH (test code = 1006) 21.5 PG MCHC (test code = 1007) 29.8 G/DL RDW (test code = 1038) 17.0 % NEUTROPHILS (test code = 1008) 69.7 % LYMPHOCYTES (test code = 1010) 19.5 % MONOCYTES (test code = 1011) 5.6 % EOSINOPHILS (test code = 1012) 4.3 % BASOPHILS (test code = 1013) 0.6 % IMMATURE GRANULOCYTES (test code = 1036) 0.3 % NUCLEATED RBCS (test code = 1065) 0.0 /100WBC'S PLATELET COUNT (test code = 1015) 218 K/UL ABSOLUTE NEUTROPHILS (test c ode = 1066) 4.32 K/UL ABSOLUTE LYMPHOCYTES (test c ode = 1067) 1.21 K/UL ABSOLUTE MONOCYTES (test cod e = 1068) 0.35 K/UL ABSOLUTE EOSINOPHILS (test c ode = 1040) 0.27 K/UL ABSOLUTE BASOPHILS (test cod e = 1069) 0.04 K/UL ABS IMMATURE GRANULOCYTES (t est code = 1020) 0.02 K/UL ABS NUCLEATED RBCS (test cod e = 89455) 0.00 K/UL Robert CaliRETICULOCYTE WITH [id number] 00:00:00* Test Item Value Reference Range Interpretation Comme nts RETICULOCYTE COUNT (test cod e = 1018) 2.55 % ABSOLUTE RETICULOCYTE (test code = 46742) 115.0 K/UL Robert CaliHAPTOGLOBIN, [id number] 00:00:00* Test Item Value Reference Range Interpretation Comme evelia HAPTOGLOBIN, QUANT (test cod e = 27581) 227 MG/DL Robert Ambrose [id number] 00:00:00* Test Item Value Reference Range Interpretation Comme nts LDH (test code = 2224) 186 U/L Robert CaliIRON BINDING CAPACITY AND IRON AND % [id number] 00:00:00* Test Item Value Reference Range Interpretation Comme nts IRON, SERUM (test code = 2222) 25 UG/DL UNSATURATED IBC (test code = 96796) 425 UG/DL CALC TOTAL IBC (test code = 2077) 450 UG/DL CALC % IRON SAT (test code = 2079) 6 % Robert [id number] 00:00:00* Test Item Value Reference Range Interpretation Comme nts FERRITIN (test code = 2075) 6 NG/ML Robert [id number] 00:00:00* Test Item Value Reference Range Interpretation Comme nts TRANSFERRIN (test code = 4936) 380 MG/DL Robert CaliURIC [id number] 00:00:00* Test Item Value Reference Range Interpretation Comme nts URIC ACID (test code = 2233) 5.8 MG/DL Robert CaliHEMOGLOBIN [id number] 00:00:00* Test Item Value Reference Range Interpretation Comme nts HEMOGLOBIN A1c (test code = 77045) 5.6 % Robert CaliLIPID [id number] 00:00:00* Test Item Value Reference Range Interpretation Comme nts CHOLESTEROL (test code = 2210) 212 MG/DL TRIGLYCERIDES (test code = 2232) 116 MG/DL HDL CHOLESTEROL (test code = 2220) 53 MG/DL CALC LDL CHOL (test code = 2237) 137 MG/DL RISK RATIO LDL/HDL (test cod e = 2238) 2.58 RATIO Robert CaliCOMPREHENSIVE METABOLIC [id number] 00:00:00* Test Item Value Reference Range Interpretation Comme nts GLUCOSE (test code = 2217) 97 MG/DL BUN (test code = 2208) 9 MG/DL CREATININE (test code = 2214) 0.86 MG/DL eGFR (2020 CKD-EPI) (test co de = 67772) 84 ML/MIN/1.73 CALC BUN/CREAT (test code = 2235) 10 RATIO SODIUM (test code = 2231) 140 MEQ/L POTASSIUM (test code = 2228) 4.4 MEQ/L CHLORIDE (test code = 2215) 104 MEQ/L CARBON DIOXIDE (test code = 2206) 25 MEQ/L CALCIUM (test code = 2209) 9.3 MG/DL PROTEIN, TOTAL (test code = 2229) 6.5 G/DL ALBUMIN (test code = 2201) 4.4 G/DL CALC GLOBULIN (test code = 2240) 2.1 G/DL CALC A/G RATIO (test code = 2234) 2.1 RATIO BILIRUBIN, TOTAL (test code = 2207) <0.2 MG/DL ALKALINE PHOSPHATASE (test code = 2204) 149 U/L AST (test code = 2218) 17 U/L ALT (test code = 2219) 22 U/L Robert CaliVITAMIN D, 25 [id number] 00:00:00* Test Item Value Reference Range Interpretation Comme [facility] VITAMIN D, 25 OH (test code = 4958) 18 NG/ML Robert CaliCBC W/AUTO DIFF RFLX SMEAR [id number] 00:00:00* Test Item Value Reference Range Interpretation Comme nts WBC (test code = 1001) 6.2 K/UL RBC (test code = 1002) 4.51 M/UL HEMOGLOBIN (test code = 1003) 9.7 G/DL HEMATOCRIT (test code = 1004) 32.6 % MCV (test code = 1005) 72.3 fL MCH (test code = 1006) 21.5 PG MCHC (test code = 1007) 29.8 G/DL RDW (test code = 1038) 17.0 % NEUTROPHILS (test code = 1008) 69.7 % LYMPHOCYTES (test code = 1010) 19.5 % MONOCYTES (test code = 1011) 5.6 % EOSINOPHILS (test code = 1012) 4.3 % BASOPHILS (test code = 1013) 0.6 % IMMATURE GRANULOCYTES (test code = 1036) 0.3 % NUCLEATED RBCS (test code = 1065) 0.0 /100WBC'S PLATELET COUNT (test code = 1015) 218 K/UL ABSOLUTE NEUTROPHILS (test c ode = 1066) 4.32 K/UL ABSOLUTE LYMPHOCYTES (test c ode = 1067) 1.21 K/UL ABSOLUTE MONOCYTES (test cod e = 1068) 0.35 K/UL ABSOLUTE EOSINOPHILS (test c ode = 1040) 0.27 K/UL ABSOLUTE BASOPHILS (test cod e = 1069) 0.04 K/UL ABS IMMATURE GRANULOCYTES (t est code = 1020) 0.02 K/UL ABS NUCLEATED RBCS (test cod e = 09687) 0.00 K/UL Robert CaliRETICULOCYTE WITH [id number] 00:00:00* Test Item Value Reference Range Interpretation Comme nts RETICULOCYTE COUNT (test cod e = 1018) 2.55 % ABSOLUTE RETICULOCYTE (test code = 69374) 115.0 K/UL Robert CaliHAPTOGLOBIN, [id number] 00:00:00* Test Item Value Reference Range Interpretation Comme nts HAPTOGLOBIN, QUANT (test cod e = 81309) 227 MG/DL Robert Ambrose [id number] 00:00:00* Test Item Value Reference Range Interpretation Comme nts LDH (test code = 2224) 186 U/L Robert CaliIRON BINDING CAPACITY AND IRON AND % [id number] 00:00:00* Test Item Value Reference Range Interpretation Comme nts IRON, SERUM (test code = 2222) 25 UG/DL UNSATURATED IBC (test code = 79881) 425 UG/DL CALC TOTAL IBC (test code = 7) 450 UG/DL CALC % IRON SAT (test code = 2078) 6 % Robert Ambrose [id number] 00:00:00* Test Item Value Reference Range Interpretation Comme nts FERRITIN (test code = 2075) 6 NG/ML Robert [id number] 00:00:00* Test Item Value Reference Range Interpretation Greyson altamirano TRANSFERRIN (test code = 4936) 380 MG/DL Robert CaliURIC [id number] 00:00:00* Test Item Value Reference Range Interpretation Greyson altamirano URIC ACID (test code = 2233) 5.8 MG/DL Robert CaliCT ACUTE STROKE ANGIOGRAM [id number] 13:46:46CT STROKE ANGIOGRAM HEAD, CT STROKE ANGIOGRAM [...] caliber. The superior cerebellar arteriesare patent. The [employer] are patent bilaterally. No sizable posteriorcommunicating arteries are seen. The petrous, cavernous and supraclinoid internal carotid segmentsarewidely patent. The GIBSON and MCA are patent bilaterally. An anteriorcommunicating artery is seen. The dural venous sinuses are opacified and unremarkable.[facility] [id number] 13:46:46CT STROKE ANGIOGRAM HEAD, CT STROKE ANGIOGRAM [...] caliber. The superior cerebellar arteriesare patent. The [employer]IVER are patent bilaterally. No sizable posteriorcommunicating arteries are seen. The petrous, cavernous and supraclinoid internal carotid segmentsarewidely patent. The GIBSON and MCA are patent bilaterally. An anteriorcommunicating artery is seen. The dural venous sinuses are opacified and unremarkable.[facility] ACUTE STROKE ANGIOGRAM [id number] 13:46:46CT STROKE ANGIOGRAM HEAD, CT STROKE ANGIOGRAM [...] caliber. The superior cerebellar arteriesare patent. The [employer]IVER are patent bilaterally. No sizable posteriorcommunicating arteries are seen. The petrous, cavernous and supraclinoid internal carotid segmentsarewidely patent. The GIBSON and MCA are patent bilaterally. An anteriorcommunicating artery is seen. The dural venous sinuses are opacified and unremarkable.[facility] ACUTE STROKE ANGIOGRAM [id number] 13:46:46CT STROKE ANGIOGRAM HEAD, CT STROKE ANGIOGRAM [...] caliber. The superior cerebellar arteriesare patent. The [employer]IVER are patent bilaterally. No sizable posteriorcommunicating arteries are seen. The petrous, cavernous and supraclinoid internal carotid segmentsarewidely patent. The GIBSON and MCA are patent bilaterally. An anteriorcommunicating artery is seen. The dural venous sinuses are opacified and unremarkable.[facility] ACUTE STROKE HEAD WO [id number] 13:44:48EXAM: CT STROKE HEAD WO CONTRAST HISTORY: [...] visualized.No parenchymal attenuation abnormality is seen. The collins-white matterdifferentiation is preserved. The mastoid air cells and visualized paranasal air sinuses are clear. Thecalvarium and central skull base are unremarkable.[facility] ACUTE STROKE HEAD WO [id number] 13:44:48EXAM: CT STROKE HEAD WO CONTRAST HISTORY: [...] paren chymal attenuation abnormality is seen. The collins-white matterdifferentiation is preserved. The mastoid air cells and visualized paranasal air sinuses are clear. Thecalvarium and central skull base are unremarkable.[facility] CenterLithium2024-[facility] 04:29:26* Test Item Value Reference Range Interpretation Comme nts [place] (test code = 2547864006) 0.6 mmol/L 0.6-1.2 ZAINAB (test code = ZAINAB) Toxic Range: ? Greater than 1.2 mmol/L Lab Interpretation (test code = 64538-6) [address]04-26 04:29:26* Test Item Value Reference Range Interpretation Comme nts [place] (test code = 0286447218) 0.6 mmol/L 0.6-1.2 ZAINAB (test code = ZAINAB) Toxic Range: ? Greater than 1.2 mmol/L Lab Interpretation (test code = 94031-2) [address]04-26 04:29:26* Test Item Value Reference Range Interpretation Comme nts [place] (test code = 5370623990) 0.6 mmol/L 0.6-1.2 ZAINAB (test code = ZAINAB) Toxic Range: ? Greater than 1.2 mmol/L Lab Interpretation (test code = 52405-9) [address]04-26 04:29:26* Test Item Value Reference Range Interpretation Comme nts [place] (test code = 7850568440) 0.6 mmol/L 0.6-1.2 ZAINAB (test code = ZAINAB) Toxic Range: ? Greater than 1.2 mmol/L Lab Interpretation (test code = 67151-9) [address]04-26 04:29:26* Test Item Value Reference Range Interpretation Comme nts [place] (test code = 0910020680) 0.6 mmol/L 0.6-1.2 ZAINAB (test code = ZAINAB) Toxic Range: ? Greater than 1.2 mmol/L Lab Interpretation (test code = 93584-0) [address]04-26 04:29:26* Test Item Value Reference Range Interpretation Comme nts [place] (test code = 0429675566) 0.6 mmol/L 0.6-1.2 ZAINAB (test code = ZAINAB) Toxic Range: ? Greater than 1.2 mmol/L Lab Interpretation (test code = 85371-5) Normal [facility]2024-04-26 04:29:26* Test Item Value Reference Range Interpretation Comme nts [place] (test code = 4189211291) 0.6 mmol/L 0.6-1.2 ZAINAB (test code = ZAINAB) Toxic Range: ? Greater than 1.2 mmol/L Lab Interpretation (test code = 44561-8) Normal [facility]2024-04-26 04:29:26* Test Item Value Reference Range Interpretation Comme nts [place] (test code = 1438227772) 0.6 mmol/L 0.6-1.2 ZAINAB (test code = ZAINAB) Toxic Range: ? Greater than 1.2 mmol/L Lab Interpretation (test code = 34557-1) Normal [facility]2024-04-26 04:29:26* Test Item Value Reference Range Interpretation Comme nts [place] (test code = 2864724811) 0.6 mmol/L 0.6-1.2 ZAINAB (test code = ZAINAB) Toxic Range: ? Greater than 1.2 mmol/L Lab Interpretation (test code = 76767-7) Normal [facility]2024-04-26 03:33:22 ALCOHOL<10mg/dL06/07/2023 10:33 PM CDTUTMB LABORATORY SERVICESToxic Greater than or equal to 80 mg/dL. NOTE: Whole blood values are approximately 10% to 15% lower than serum and plasma.[facility]2024-04-26 03:33:22ALCOHOL<10mg/dL06/07/2023 10:33 PM CDTUTMB LABORATORY SERVICESToxic Greater than or equal to 80 mg/dL. NOTE: Whole blood values are approximately 10% to 15% lower than serum and plasma.[facility] 2023-06-08 03:33:22ALCOHOL<10mg/dL06/07/2023 10:33 PM CDTUTMB LABORATORY SERVICESToxic Greater than or equal to 80 mg/dL. NOTE: Whole blood values are approximately 10% to 15% lower than serum and plasma.[facility]2024-04-26 03:33:22ALCOHOL<10mg/dL06/07/2023 10:33 PM CDTUTMB LABORATORY SERVICESToxic Greater than or equal to 80 mg/dL. NOTE: Whole blood values are approximately 10% to 15% lower than serum and plasma.[facility]2024-04-26 03:33:22ALCOHOL<10mg/dL06/07/2023 10:33 PM CDTUTMB LABORATORY SERVICESToxic Greater than or equal to 80 mg/dL. NOTE: Whole blood values are approximately 10% to 15% lower than serum and plasma.[facility]2024-04-26 03:33:22ALCOHOL<10mg/dL06/07/2023 10:33 PM CDTUTMB LABORATORY SERVICESToxic Greater than or equal to 80 mg/dL. NOTE: Whole blood values are approximately 10% to 15% lower than serum and plasma. [facility]2024-04-26 03:33:22 ALCOHOL<10mg/dL06/07/2023 10:33 PM CDTUTMB LABORATORY SERVICESToxic Greater than or equal to 80 mg/dL. NOTE: Whole blood values are approximately 10% to 15% lower than serum and plasma.[facility]2024-04-26 03:33:22ALCOHOL<10mg/dL06/07/2023 10:33 PM CDTUTMB LABORATORY SERVICESToxic Greater than or equal to 80 mg/dL. NOTE: Whole blood values are approximately 10% to 15% lower than serum and plasma.[facility] 2023-06-08 03:33:22ALCOHOL<10mg/dL06/07/2023 10:33 PM CDTUTMB LABORATORY SERVICESToxic Greater than or equal to 80 mg/dL. NOTE: Whole blood values are approximately 10% to 15% lower than serum and plasma.[facility] CenterTroponin I - Code [id number] 03:15:34* Test Item Value Reference Range Interpretation Comme nts TROPONIN I (test code = 7845048415) 0.003 ng/mL <=0.034 ZAINAB (test code = [...] of biotin. Lab Interpretation (test code = 33002-9) Normal [facility] I - Code [id number] 03:15:34* Test Item Value Reference Range Interpretation Comme nts TROPONIN I (test code = 5932354147) 0.003 ng/mL <=0.034 ZAINAB (test code = [...] of biotin. Lab Interpretation (test code = 33726-2) Normal [facility] I - Code [id number] 03:15:34* Test Item Value Reference Range Interpretation Comme nts TROPONIN I (test code = 5878594334) 0.003 ng/mL <=0.034 ZAINAB (test code = [...] of biotin. Lab Interpretation (test code = 38287-7) Normal [facility] I - Code [id number] 03:15:34* Test Item Value Reference Range Interpretation Comme nts TROPONIN I (test code = 4446727129) 0.003 ng/mL <=0.034 ZAINAB (test code = [...] of biotin. Lab Interpretation (test code = 92329-1) Normal [facility] I - Code [id number] 03:15:34* Test Item Value Reference Range Interpretation Comme nts TROPONIN I (test code = 1982672506) 0.003 ng/mL <=0.034 ZAINAB (test code = [...] of biotin. Lab Interpretation (test code = 19379-0) Normal [facility] I - Code [id number] 03:15:34* Test Item Value Reference Range Interpretation Comme nts TROPONIN I (test code = 2301097109) 0.003 ng/mL <=0.034 ZAINAB (test code = [...] of biotin. Lab Interpretation (test code = 20182-4) Normal [facility] I - Code [id number] 03:15:34* Test Item Value Reference Range Interpretation Comme nts TROPONIN I (test code = 5553932758) 0.003 ng/mL <=0.034 ZAINAB (test code = [...] of biotin. Lab Interpretation (test code = 51037-1) Normal [facility] I - Code [id number] 03:15:34* Test Item Value Reference Range Interpretation Comme nts TROPONIN I (test code = 4534559006) 0.003 ng/mL <=0.034 ZAINAB (test code = [...] of biotin. Lab Interpretation (test code = 01519-9) [facility] [id number] 03:15:34* Test Item Value Reference Range Interpretation Comme nts TROPONIN I (test code = 4021110854) 0.003 ng/mL <=0.034 ZAINAB (test code = [...] of biotin. Lab Interpretation (test code = 65714-1) Normal [facility] Metabolic Panel (NA, K, CL, CO2, Glucose, BUN, Creatinine, CA) - Code Iewmmb9099-11-03 03:03:47* Test Item Value Reference Range Interpretation Comme nts NA (test code = 5541836133) 135 mmol/L 135-145 K (test code = 3368826533) 4.3 mmol/L 3.5-5.0 CL (test code = 3112821453) 103 mmol/L 98-108 CO2 TOTAL (test code = 5468709492) 28 mmol/L 23-31 AGAP (test code = 4194777092) 4 2-16 BUN (test code = 3936370813) 11 mg/dL 7-23 GLUCOSE (test code = 3107491543) 120 mg/dL 70-110 H CREATININE (test code = 2160-0) 0.71 mg/dL 0.50-1.04 CALCIUM (test code = 3733302515) 9.3 mg/dL 8.6-10.6 eGFR (test code = 43617-4) 107.0 mL/min/1.73m2 CKD-EPI eGFR (2020). Assuming creatinine has been stable day-to-day for at least three months, the eGFR indicates Category G1 (>= 90 mL/min/1.73 m2) Lab Interpretation (test code = 01819-6) Abnormal [facility] Metabolic Panel (NA, K, CL, CO2, Glucose, BUN, Creatinine, CA) - Code [id number] 03:03:47* Test Item Value Reference Range Interpretation Comme nts NA (test code = 9715171245) 135 mmol/L 135-145 K (test code = 5180278374) 4.3 mmol/L 3.5-5.0 CL (test code = 3286582050) 103 mmol/L 98-108 CO2 TOTAL (test code = 0673351700) 28 mmol/L 23-31 AGAP (test code = 8456410762) 4 2-16 BUN (test code = 4220260141) 11 mg/dL 7-23 GLUCOSE (test code = 9913524315) 120 mg/dL 70-110 H CREATININE (test code = 2160-0) 0.71 mg/dL 0.50-1.04 CALCIUM (test code = 3761572549) 9.3 mg/dL 8.6-10.6 eGFR (test code = 46768-7) 107.0 mL/min/1.73m2 CKD-EPI eGFR (2020). Assuming creatinine has been stable day-to-day for at least three months, the eGFR indicates Category G1 (>= 90 mL/min/1.73 m2) Lab Interpretation (test code = 37297-4) Abnormal [facility] Metabolic Panel (NA, K, CL, CO2, Glucose, BUN, Creatinine, CA) - Code Dviyol5300-93-86 03:03:47* Test Item Value Reference Range Interpretation Comme nts NA (test code = 3349110002) 135 mmol/L 135-145 K (test code = 0604432431) 4.3 mmol/L 3.5-5.0 CL (test code = 5651223640) 103 mmol/L 98-108 CO2 TOTAL (test code = 7331501174) 28 mmol/L 23-31 AGAP (test code = 8087471294) 4 2-16 BUN (test code = 6044258342) 11 mg/dL 7-23 GLUCOSE (test code = 1609861879) 120 mg/dL 70-110 H CREATININE (test code = 2160-0) 0.71 mg/dL 0.50-1.04 CALCIUM (test code = 2169175756) 9.3 mg/dL 8.6-10.6 eGFR (test code = 64470-4) 107.0 mL/min/1.73m2 CKD-EPI eGFR (2020). Assuming creatinine has been stable day-to-day for at least three months, the eGFR indicates Category G1 (>= 90 mL/min/1.73 m2) Lab Interpretation (test code = 65912-0) Abnormal [facility] Metabolic Panel (NA, K, CL, CO2, Glucose, BUN, Creatinine, CA) - Code Stypee9795-21-62 03:03:47* Test Item Value Reference Range Interpretation Comme nts NA (test code = 6441869352) 135 mmol/L 135-145 K (test code = 8997029430) 4.3 mmol/L 3.5-5.0 CL (test code = 4685365861) 103 mmol/L 98-108 CO2 TOTAL (test code = 0586817783) 28 mmol/L 23-31 AGAP (test code = 2865375837) 4 2-16 BUN (test code = 3677203555) 11 mg/dL 7-23 GLUCOSE (test code = 4044662783) 120 mg/dL 70-110 H CREATININE (test code = 2160-0) 0.71 mg/dL 0.50-1.04 CALCIUM (test code = 3112057467) 9.3 mg/dL 8.6-10.6 eGFR (test code = 56994-7) 107.0 mL/min/1.73m2 CKD-EPI eGFR (2020). Assuming creatinine has been stable day-to-day for at least three months, the eGFR indicates Category G1 (>= 90 mL/min/1.73 m2) Lab Interpretation (test code = 56351-5) Abnormal [facility] Metabolic Panel (NA, K, CL, CO2, Glucose, BUN, Creatinine, CA) - Code Xuzssy9723-03-09 03:03:47* Test Item Value Reference Range Interpretation Comme nts NA (test code = 7948734091) 135 mmol/L 135-145 K (test code = 2603564974) 4.3 mmol/L 3.5-5.0 CL (test code = 6758121706) 103 mmol/L 98-108 CO2 TOTAL (test code = 4991204611) 28 mmol/L 23-31 AGAP (test code = 6817110791) 4 2-16 BUN (test code = 7106815599) 11 mg/dL 7-23 GLUCOSE (test code = 2836579936) 120 mg/dL 70-110 H CREATININE (test code = 2160-0) 0.71 mg/dL 0.50-1.04 CALCIUM (test code = 6769696742) 9.3 mg/dL 8.6-10.6 eGFR (test code = 81338-2) 107.0 mL/min/1.73m2 CKD-EPI eGFR (2020). Assuming creatinine has been stable day-to-day for at least three months, the eGFR indicates Category G1 (>= 90 mL/min/1.73 m2) Lab Interpretation (test code = 62077-1) Abnormal [facility] Metabolic Panel (NA, K, CL, CO2, Glucose, BUN, Creatinine, CA) - Code Ssfwds9309-20-44 03:03:47* Test Item Value Reference Range Interpretation Comme nts NA (test code = 1469207437) 135 mmol/L 135-145 K (test code = 1984671792) 4.3 mmol/L 3.5-5.0 CL (test code = 3508497779) 103 mmol/L 98-108 CO2 TOTAL (test code = 3151664468) 28 mmol/L 23-31 AGAP (test code = 7500065285) 4 2-16 BUN (test code = 3323660083) 11 mg/dL 7-23 GLUCOSE (test code = 1757714149) 120 mg/dL 70-110 H CREATININE (test code = 2160-0) 0.71 mg/dL 0.50-1.04 CALCIUM (test code = 7352616755) 9.3 mg/dL 8.6-10.6 eGFR (test code = 00728-9) 107.0 mL/min/1.73m2 CKD-EPI eGFR (2020). Assuming creatinine has been stable day-to-day for at least three months, the eGFR indicates Category G1 (>= 90 mL/min/1.73 m2) Lab Interpretation (test code = 99246-5) Abnormal [facility] Metabolic Panel (NA, K, CL, CO2, Glucose, BUN, Creatinine, CA) - Code Awqbyg3157-12-81 03:03:47* Test Item Value Reference Range Interpretation Comme nts NA (test code = 5645300167) 135 mmol/L 135-145 K (test code = 2230692697) 4.3 mmol/L 3.5-5.0 CL (test code = 5983906221) 103 mmol/L 98-108 CO2 TOTAL (test code = 0211126307) 28 mmol/L 23-31 AGAP (test code = 4305533191) 4 2-16 BUN (test code = 0540375762) 11 mg/dL 7-23 GLUCOSE (test code = 1817296349) 120 mg/dL 70-110 H CREATININE (test code = 2160-0) 0.71 mg/dL 0.50-1.04 CALCIUM (test code = 7373402296) 9.3 mg/dL 8.6-10.6 eGFR (test code = 65021-1) 107.0 mL/min/1.73m2 CKD-EPI eGFR (2020). Assuming creatinine has been stable day-to-day for at least three months, the eGFR indicates Category G1 (>= 90 mL/min/1.73 m2) Lab Interpretation (test code = 84910-4) Abnormal [facility] Metabolic Panel (NA, K, CL, CO2, Glucose, BUN, Creatinine, CA) - Code Ujknmb4855-83-38 03:03:47* Test Item Value Reference Range Interpretation Comme nts NA (test code = 8485725943) 135 mmol/L 135-145 K (test code = 9172438802) 4.3 mmol/L 3.5-5.0 CL (test code = 3415400897) 103 mmol/L 98-108 CO2 TOTAL (test code = 7368877285) 28 mmol/L 23-31 AGAP (test code = 3156413324) 4 2-16 BUN (test code = 5605990397) 11 mg/dL 7-23 GLUCOSE (test code = 7743944588) 120 mg/dL 70-110 H CREATININE (test code = 2160-0) 0.71 mg/dL 0.50-1.04 CALCIUM (test code = 9859851307) 9.3 mg/dL 8.6-10.6 eGFR (test code = 22229-0) 107.0 mL/min/1.73m2 CKD-EPI eGFR (2020). Assuming creatinine has been stable day-to-day for at least three months, the eGFR indicates Category G1 (>= 90 mL/min/1.73 m2) Lab Interpretation (test code = 97667-0) Abnormal [facility] Metabolic Panel (NA, K, CL, CO2, Glucose, BUN, Creatinine, CA) - Code Hdkbzm8619-64-96 03:03:47* Test Item Value Reference Range Interpretation Comme [facility] NA (test code = 3021751047) 135 mmol/L 135-145 K (test code = 0486591588) 4.3 mmol/L 3.5-5.0 CL (test code = 4276353260) 103 mmol/L 98-108 CO2 TOTAL (test code = 4422136368) 28 mmol/L 23-31 AGAP (test code = 9281044888) 4 2-16 BUN (test code = 2575643329) 11 mg/dL 7-23 GLUCOSE (test code = 2243836283) 120 mg/dL 70-110 H CREATININE (test code = 2160-0) 0.71 mg/dL 0.50-1.04 CALCIUM (test code = 4270892038) 9.3 mg/dL 8.6-10.6 eGFR (test code = 50502-6) 107.0 mL/min/1.73m2 CKD-EPI eGFR (2020). Assuming creatinine has been stable day-to-day for at least three months, the eGFR indicates Category G1 (>= 90 mL/min/1.73 m2) Lab Interpretation (test code = 64344-7) [facility] - Code Sadgkh8930-68-56 03:00:48* Test Item Value Reference Range Interpretation Comme nts PROTIME PATIENT (test code = 5964-2) 10.4 10.1-12.6 INR (test code = 6301-6) 0.9 Normal INR <1.1; Warfarin Therapeutic range 2.0 to 3.0 or 2.5 to 3.5, depending upon the indications. Lab Interpretation (test code = 87627-6) [facility] Xnlccs6456-29-31 03:00:48* Test Item Value Reference Range Interpretation Comme nts PROTIME PATIENT (test code = 5964-2) 10.4 10.1-12.6 INR (test code = 6301-6) 0.9 Normal INR <1.1; Warfarin Therapeutic range 2.0 to 3.0 or 2.5 to 3.5, depending upon the indications. Lab Interpretation (test code = 23257-6) [facility] - Code Okusav1700-08-73 03:00:48* Test Item Value Reference Range Interpretation Comme nts PROTIME PATIENT (test code = 5964-2) 10.4 10.1-12.6 INR (test code = 6301-6) 0.9 Normal INR <1.1; Warfarin Therapeutic range 2.0 to 3.0 or 2.5 to 3.5, depending upon the indications. Lab Interpretation (test code = 81016-5) [facility] - Code Qcompq2495-25-30 03:00:48* Test Item Value Reference Range Interpretation Comme nts PROTIME PATIENT (test code = 5964-2) 10.4 10.1-12.6 INR (test code = 6301-6) 0.9 Normal INR <1.1; Warfarin Therapeutic range 2.0 to 3.0 or 2.5 to 3.5, depending upon the indications. Lab Interpretation (test code = 06094-1) [facility] - Code Dmvnjs5480-69-86 03:00:48* Test Item Value Reference Range Interpretation Comme nts PROTIME PATIENT (test code = 5964-2) 10.4 10.1-12.6 INR (test code = 6301-6) 0.9 Normal INR <1.1; Warfarin Therapeutic range 2.0 to 3.0 or 2.5 to 3.5, depending upon the indications. Lab Interpretation (test code = 91377-0) [facility] - Code Pkliig9238-45-74 03:00:48* Test Item Value Reference Range Interpretation Comme nts PROTIME PATIENT (test code = 5964-2) 10.4 10.1-12.6 INR (test code = 6301-6) 0.9 Normal INR <1.1; Warfarin Therapeutic range 2.0 to 3.0 or 2.5 to 3.5, depending upon the indications. Lab Interpretation (test code = 58793-2) [facility] - Code Rhjrpm1822-25-02 03:00:48* Test Item Value Reference Range Interpretation Comme nts PROTIME PATIENT (test code = 5964-2) 10.4 10.1-12.6 INR (test code = 6301-6) 0.9 Normal INR <1.1; Warfarin Therapeutic range 2.0 to 3.0 or 2.5 to 3.5, depending upon the indications. Lab Interpretation (test code = 39699-7) [facility] - Code Lfjtyg1574-57-83 03:00:48* Test Item Value Reference Range Interpretation Comme nts PROTIME PATIENT (test code = 5964-2) 10.4 10.1-12.6 INR (test code = 6301-6) 0.9 Normal INR <1.1; Warfarin Therapeutic range 2.0 to 3.0 or 2.5 to 3.5, depending upon the indications. Lab Interpretation (test code = 48883-6) [facility] - Code [id number] 03:00:48* Test Item Value Reference Range Interpretation Comme nts PROTIME PATIENT (test code = 5964-2) 10.4 10.1-12.6 INR (test code = 6301-6) 0.9 Normal INR <1.1; Warfarin Therapeutic range 2.0 to 3.0 or 2.5 to 3.5, depending upon the indications. Lab Interpretation (test code = 52956-1) [facility] - Code Gefhij5879-73-62 03:00:47* Test Item Value Reference Range Interpretation Comme nts APTT Patient (test code = 3173-2) 29 -36 Lab Interpretation (test cod e = 75717-9) [facility] Hymhmv[facility]24-53-03 03:00:47* Test Item Value Reference Range Interpretation Comme nts APTT Patient (test code = 3173-2) -36 Lab Interpretation (test cod e = 04825-8) [facility] Ghbhvj1035-15-95 03:00:47* Test Item Value Reference Range Interpretation Comme nts APTT Patient (test code = 3173-2) -36 Lab Interpretation (test cod e = 02573-7) [facility] Fdjxxq6189-34-35 03:00:47* Test Item Value Reference Range Interpretation Comme nts APTT Patient (test code = 3173-2) -36 Lab Interpretation (test cod e = 03733-5) [facility] Pksrjd9088-70-67 03:00:47* Test Item Value Reference Range Interpretation Comme nts APTT Patient (test code = 3173-2) -36 Lab Interpretation (test cod e = 11426-5) [facility] Bbixnz0903-43-44 03:00:47* Test Item Value Reference Range Interpretation Comme nts APTT Patient (test code = 3173-2) -36 Lab Interpretation (test cod e = 41763-3) [facility] Dfpfwt3273-46-72 03:00:47* Test Item Value Reference Range Interpretation Comme nts APTT Patient (test code = 3173-2) -36 Lab Interpretation (test cod e = 78811-2) [facility] Wliyab3066-52-75 03:00:47* Test Item Value Reference Range Interpretation Comme nts APTT Patient (test code = 3173-2) -36 Lab Interpretation (test cod e = 50316-7) [facility] Xklpho4914-64-33 03:00:47* Test Item Value Reference Range Interpretation Comme nts APTT Patient (test code = 3173-2) -36 Lab Interpretation (test cod e = 79992-7) Normal [facility] without Diff - Code Zqodww4245-53-51 02:52:09* Test Item Value Reference Range Interpretation [...] 367 166-358 H MPV (test code = 79112-8) 11.3 fL 9.5-12.9 RDW-CV (test code = 788-0) 15.4 % 12.0-15.5 RDW-SD (test code = 06053-1) 43.8 fL 39.0-49.9 NRBC x10^3 (test code = 8184779442) See_Comment [Automated [employer] ge] The system which generated this result transmitted reference range: 10*3/?L. The reference range was not used to interpret this result as normal/abnormal. NRBC/100 WBC (test code = 7914459232) 0.0 0.0-10.0 IPF % (test code = 7819578426) Lab Interpretation (test code = 00519-4) Abnormal [facility] without Diff - Code Mzrwrt5156-56-18 02:52:09* Test Item Value Reference Range Interpretation [...] 367 166-358 H MPV (test code = 53000-7) 11.3 fL 9.5-12.9 RDW-CV (test code = 788-0) 15.4 % 12.0-15.5 RDW-SD (test code = 58695-2) 43.8 fL 39.0-49.9 NRBC x10^3 (test code = 5685544389) See_Comment [Automated [employer]] The system which generated this result transmitted reference range: 10*3/?L. The reference range was not used to interpret this result as normal/abnormal. NRBC/100 WBC (test code = 7298459482) 0.0 0.0-10.0 IPF % (test code = 6062662900) Lab Interpretation (test code = 67679-8) Abnormal [facility] without Diff - Code Elhuri6797-12-13 02:52:09* Test Item Value Reference Range Interpretation [...] 367 166-358 H MPV (test code = 37526-3) 11.3 fL 9.5-12.9 RDW-CV (test code = 788-0) 15.4 % 12.0-15.5 RDW-SD (test code = 85407-9) 43.8 fL 39.0-49.9 NRBC x10^3 (test code = 0687774870) See_Comment [Automated [employer]] The system which generated this result transmitted reference range: 10*3/?L. The reference range was not used to interpret this result as normal/abnormal. NRBC/100 WBC (test code = 1181969073) 0.0 0.0-10.0 IPF % (test code = 7244888176) Lab Interpretation (test code = 56932-8) Abnormal [facility] without Diff - Code Pdtkya9147-19-11 02:52:09* Test Item Value Reference Range Interpretation [...] 367 166-358 H MPV (test code = 18256-0) 11.3 fL 9.5-12.9 RDW-CV (test code = 788-0) 15.4 % 12.0-15.5 RDW-SD (test code = 30397-3) 43.8 fL 39.0-49.9 NRBC x10^3 (test code = 6113391586) See_Comment [Automated [employer]] The system which generated this result transmitted reference range: 10*3/?L. The reference range was not used to interpret this result as normal/abnormal. NRBC/100 WBC (test code = 9303922964) 0.0 0.0-10.0 IPF % (test code = 8094744893) Lab Interpretation (test code = 36559-3) Abnormal [facility] without Diff - Code Alacoq6981-93-63 02:52:09* Test Item Value Reference Range Interpretation [...] 367 166-358 H MPV (test code = 32455-8) 11.3 fL 9.5-12.9 RDW-CV (test code = 788-0) 15.4 % 12.0-15.5 RDW-SD (test code = 36277-7) 43.8 fL 39.0-49.9 NRBC x10^3 (test code = 5268296811) See_Comment [Automated messa ge] The system which generated this result transmitted reference range: 10*3/?L. The reference range was not used to interpret this result as normal/abnormal. NRBC/100 WBC (test code = 6311480075) 0.0 0.0-10.0 IPF % (test code = 0393471864) Lab Interpretation (test code = 65310-7) Abnormal [facility] without Diff - Code Qkqhcc6355-83-03 02:52:09* Test Item Value Reference Range Interpretation [...] 367 166-358 H MPV (test code = 03504-0) 11.3 fL 9.5-12.9 RDW-CV (test code = 788-0) 15.4 % 12.0-15.5 RDW-SD (test code = 01688-2) 43.8 fL 39.0-49.9 NRBC x10^3 (test code = 8758014481) See_Comment [Automated [employer]] The system which generated this result transmitted reference range: 10*3/?L. The reference range was not used to interpret this result as normal/abnormal. NRBC/100 WBC (test code = 8918753890) 0.0 0.0-10.0 IPF % (test code = 7822754518) Lab Interpretation (test code = 63834-1) Abnormal [facility] without Diff - Code Biiexz1069-06-67 02:52:09* Test Item Value Reference Range Interpretation [...] 367 166-358 H MPV (test code = 15980-2) 11.3 fL 9.5-12.9 RDW-CV (test code = 788-0) 15.4 % 12.0-15.5 RDW-SD (test code = 91292-7) 43.8 fL 39.0-49.9 NRBC x10^3 (test code = 5321866273) See_Comment [Automated [employer]] The system which generated this result transmitted reference range: 10*3/?L. The reference range was not used to interpret this result as normal/abnormal. NRBC/100 WBC (test code = 4245652998) 0.0 0.0-10.0 IPF % (test code = 9140810743) Lab Interpretation (test code = 86538-4) Abnormal [facility] without Diff - Code Abkwqw9570-69-69 02:52:09* Test Item Value Reference Range Interpretation [...] 367 166-358 H MPV (test code = 96789-3) 11.3 fL 9.5-12.9 RDW-CV (test code = 788-0) 15.4 % 12.0-15.5 RDW-SD (test code = 00186-2) 43.8 fL 39.0-49.9 NRBC x10^3 (test code = 7280349826) See_Comment [Automated [employer]] The system which generated this result transmitted reference range: 10*3/?L. The reference range was not used to interpret this result as normal/abnormal. NRBC/100 WBC (test code = 3845993652) 0.0 0.0-10.0 IPF % (test code = 5092455605) Lab Interpretation (test code = 51309-1) Abnormal [facility] without Diff - Code Ieivph5101-52-70 02:52:09* Test Item Value Reference Range Interpretation [...] 367 166-358 H MPV (test code = 66732-1) 11.3 fL 9.5-12.9 RDW-CV (test code = 788-0) 15.4 % 12.0-15.5 RDW-SD (test code = 13984-1) 43.8 fL 39.0-49.9 NRBC x10^3 (test code = 6589288271) See_Comment [Automated [employer]] The system which generated this result transmitted reference range: 10*3/?L. The reference range was not used to interpret this result as normal/abnormal. NRBC/100 WBC (test code = 1727275514) 0.0 0.0-10.0 IPF % (test code = 2217043425) Lab Interpretation (test code = 18010-3) Abnormal [facility] Glucose (Age >30 Days) - Code Stroke 2023-06-08 02:39:00* Test Item Value Reference Range Interpretation Comme nts POCT Glu (age>30days) (test code = 3342) 124 mg/dL 70-110 A Lab Interpretation (test cod e = 06349-3) Abnormal [facility] Glucose (Age >30 Days) - Code Stroke 2023-06-08 02:39:00* Test Item Value Reference Range Interpretation Comme nts POCT Glu (age>30days) (test code = 3342) 124 mg/dL 70-110 A Lab Interpretation (test cod e = 42966-3) [facility] (Age >30 Days) - Code Stroke 2023-06-08 02:39:00* Test Item Value Reference Range Interpretation Comme nts POCT Glu (age>30days) (test code = 3342) 124 mg/dL 70-110 A Lab Interpretation (test cod e = 04014-8) [facility] Gl[facility] (Age >30 Days) - Code Stroke 2023-06-08 02:39:00* Test Item Value Reference Range Interpretation Comme nts POCT Glu (age>30days) (test code = 3342) 124 mg/dL 70-110 A Lab Interpretation (test cod e = 91334-0) [facility] Gl[facility] (Age >30 Days) - Code Stroke 2023-06-08 02:39:00* Test Item Value Reference Range Interpretation Comme nts POCT Glu (age>30days) (test code = 3342) 124 mg/dL 70-110 A Lab Interpretation (test cod e = 94298-4) [facility] Glucose (Age >30 Days) - Code Stroke 2023-06-08 02:39:00* Test Item Value Reference Range Interpretation Comme nts POCT Glu (age>30days) (test code = 3342) 124 mg/dL 70-110 A Lab Interpretation (test cod e = 84273-1) [facility]normal [facility] Glucose (Age >30 Days) - Code Stroke 2023-06-08 02:39:00* Test Item Value Reference Range Interpretation Comme nts POCT Glu (age>30days) (test code = 3342) 124 mg/dL 70-110 A Lab Interpretation (test cod e = 63628-1) Abnormal [facility] Glucose (Age >30 Days) - Code Stroke 2023-06-08 02:39:00* Test Item Value Reference Range Interpretation Comme nts POCT Glu (age>30days) (test code = 3342) 124 mg/dL 70-110 A Lab Interpretation (test cod e = 42566-4) [facility]normal [facility] Glucose (Age >30 Days) - Code Stroke 2023-06-08 02:39:00* Test Item Value Reference Range Interpretation Comme nts POCT Glu (age>30days) (test code = 3342) 124 mg/dL 70-110 A Lab Interpretation (test cod e = 70325-0) Abnormal [facility] Xqqjb0706-49-05 19:59:01* Test Item Value Reference Range Interpretation Comme nts FERRITIN (test code = 1693062151) 22.4 ng/mL 6.0-137.0 ZAINAB (test code = ZAINAB) Biotin has been reported to cause a negative bias, interpret results relative to patient's use of biotin. Lab Interpretation (test code = 12386-5) Normal [facility] Pzbko6774-08-13 19:59:01* Test Item Value Reference Range Interpretation Comme nts FERRITIN (test code = 6733751855) 22.4 ng/mL 6.0-137.0 ZAINAB (test code = ZAINAB) Biotin has been reported to cause a negative bias, interpret results relative to patient's use of biotin. Lab Interpretation (test code = 92353-1) Normal [facility] Skdsn1785-53-45 19:59:01* Test Item Value Reference Range Interpretation Comme nts FERRITIN (test code = 6285957690) 22.4 ng/mL 6.0-137.0 ZAINAB (test code = ZAINAB) Biotin has been reported to cause a negative bias, interpret results relative to patient's use of biotin. Lab Interpretation (test code = 39082-6) Normal [facility] Jksoy1970-01-63 19:59:01* Test Item Value Reference Range Interpretation Comme nts FERRITIN (test code = 4180121193) 22.4 ng/mL 6.0-137.0 ZAINAB (test code = ZAINAB) Biotin has been reported to cause a negative bias, interpret results relative to patient's use of biotin. Lab Interpretation (test code = 33523-0) Normal [facility] [id number] 19:59:01* Test Item Value Reference Range Interpretation Comme nts FERRITIN (test code = 0613379499) 22.4 ng/mL 6.0-137.0 ZAINAB (test code = ZAINAB) Biotin has been reported to cause a negative bias, interpret results relative to patient's use of biotin. Lab Interpretation (test code = 50134-5) Normal [facility] [id number] 19:59:01* Test Item Value Reference Range Interpretation Comme nts FERRITIN (test code = [id number]) 22.4 ng/mL 6.0-137.0 ZAINAB (test code = ZAINAB) Biotin has been reported to cause a negative bias, interpret results relative to patient's use of biotin. Lab Interpretation (test code = 95777-5) Normal [facility] Rsjrr9645-93-31 19:30:52* Test Item Value Reference Range Interpretation Comme nts IRON (test code = 4038729941) 54 ug/dL 50-160 TIBC (test code = 0434331376) 434 ug/dL 250-410 H % FE SAT (test code = 3637580625) 12 % 20-50 L Lab Interpretation (test cod e = 40466-3) Abnormal [facility] Zukgj4041-28-58 19:30:52* Test Item Value Reference Range Interpretation Comme nts IRON (test code = 7733811815) 54 ug/dL 50-160 TIBC (test code = 3690272166) 434 ug/dL 250-410 H % FE SAT (test code = 9348019444) 12 % 20-50 L Lab Interpretation (test cod e = 44747-5) Abnormal [facility] Ppfqe6831-26-49 19:30:52* Test Item Value Reference Range Interpretation Comme nts IRON (test code = 0893937081) 54 ug/dL 50-160 TIBC (test code = 5607865291) 434 ug/dL 250-410 H % FE SAT (test code = 7389494066) 12 % 20-50 L Lab Interpretation (test cod e = 52992-6) Abnormal [facility] Heyam0203-81-50 19:30:52* Test Item Value Reference Range Interpretation Comme nts IRON (test code = 9802449956) 54 ug/dL 50-160 TIBC (test code = 8612096335) 434 ug/dL 250-410 H % FE SAT (test code = 7855723107) 12 % 20-50 L Lab Interpretation (test cod e = 37755-1) Abnormal [facility] Wpagj7101-28-52 19:30:52* Test Item Value Reference Range Interpretation Comme nts IRON (test code = 9459463374) 54 ug/dL 50-160 TIBC (test code = 0076390622) 434 ug/dL 250-410 H % FE SAT (test code = 2756983974) 12 % 20-50 L Lab Interpretation (test cod e = 88733-4) [facility] X[facility]l2687[facility]08 19:30:52* Test Item Value Reference Range Interpretation Comme nts IRON (test code = 7226790422) 54 ug/dL 50-160 TIBC (test code = 3520579139) 434 ug/dL 250-410 H % FE SAT (test code = 6560303961) 12 % 20-50 L Lab Interpretation (test cod e = 63537-1) Abnormal [facility]2023-12-11 20:01:05* Test Item Value Reference Range Interpretation Comme nts [place] (test code = 6920063171) 0.5 mmol/L 0.6-1.2 L ZAINAB (test code = ZAINAB) Toxic Range: ? Greater than 1.2 mmol/L Lab Interpretation (test code = 25179-9) Abnormal [facility]2023-12-11 20:01:05* Test Item Value Reference Range Interpretation Comme nts [place] (test code = 1240412352) 0.5 mmol/L 0.6-1.2 L ZAINAB (test code = ZAINAB) Toxic Range: ? Greater than 1.2 mmol/L Lab Interpretation (test code = 38654-8) Abnormal [facility]2023-12-11 20:01:05* Test Item Value Reference Range Interpretation Comme nts [place] (test code = 7495291042) 0.5 mmol/L 0.6-1.2 L ZAINAB (test code = ZAINAB) Toxic Range: ? Greater than 1.2 mmol/L Lab Interpretation (test code = 76204-4) [facility] RKXS3405-20-89 19:23:05* Test Item Value Reference Range Interpretation Comme nts Case Report (test code = 2479742441) Surgical Pathology ?Case: [id number] ? Authorizing Provider: ?Dominic Keita MD ? [...] HPylori ? Final Diagnosis (test code = 8080983199) p3pjhEZyPOTje3cdNESbxT FuZzEwMzNcZnRuYmpcdWMx TAjuwiBeVBghkCpbTLL8ZV GsYS5gmLggkWx6nLlqZIMh cjN2pDFoSXnhw8qaQIF9s3 kdbqyoJFHpHAkoFw8zyCEo cUieCzBhJDQtGEz1cG16DT QwhW3piKRkDQx2HCQfaCMw uyXwHwAnRYSwbQDgyIX1JJ BzDI8szmwpTTxpDIywHMTs wlH1OFSwxIIrX7ZoAEUvJX 7ysnviCIM6YRlfKIJcNBE1 YyFeKRYec9Uhncz1SnXipG FyZFxwbGFpblxmczIwXHBh duESNsUXIU5IGADMCRWZB9 wLFVCZQN3YZIJDVinhkPOo YFAhJCNeEBXFGK5FLZAhI1 mLSrEjXI9HXHWgWTEnlZRb PCSuuvNCXeCYVA8RPS5UUE wgQklPUFNZOlxwYXIgICAg UIDlKDuCO0UJDVTiQARUH4 ZHIYzDXAkhZu9hHHMEDJ3V J4bNR4SJDXIRRE9TMCiqYC RdUQSkXOYeGI4RCRmeNOAD ID6POHIKEEAJCEpALECHAW QMAEwTJBYFO6EBXAdYQAUh qeteEUWmRc5fT9NRHKLPOU wgQklPUFNZOlxwYXIgICAg KKTvXBACE1WLIeEFKV5KH9 0PDPGKFOMHRH1GUICSPAdG CB9FLMJWBONGFCEXS8YseN FyICAgICAgLSBOTyBFVklE VF0UKOEBSdBCGHyYRGZoKV lTRUFTRVxwYXIgICAgICAt RT0RFLptBLBSGS7STXOTOp dBTklTTVMgSURFTlRJRklF FFEVRQMJGY7ZVj8HIGNQNy xwYXJccGFyfXtccnRmMVxz e5QeQ1StFmOvPVleqdOwUD NxUgcuexaiDBFqFGA5zuOw RGHjBTsoFXPtCYmiVk4ttZ DyfNeqHqNqGCOgo5ojxpZW HRumCuGwJ150DMHsDBaum1 cxr9EzMJGaiZIog5C6ZTOR denweHr7r5hqFkXkWgT2bE DtMEeaD5dxljNvzCCzF0Hs aLUhxHc2fRddV65jv2C3Lb lhO6saHOVaTFYoB0WwSP2m DCVxKtc5UOG6ABE5HEWfLU CcN2MpYL8bTTZyhKMuJIl2 e1gdcRkeDQJzYFG2h0foLN mzocC8AZ9lcc5pqXd8i5ov czEgRGVmYXVsdCBQYXJhZ3 YewJcjYv7chQy4nXlcBhhl IHO9Gmy2VJ2tiq60fwg5iW hdTFCufwtiOaW0YPigTITx xmlvRTo6WXltJSBtmGO9UZ PcuQFvF0JyTKUmXI5etoc4 SSG7SLgzRUDaAeK7YSJknP JjODAchScdYZfeh460MIZ5 CfEiZA6zS4Eow7H6qP2flO NcLLGmuBBbZdDvPQJcou1w yLEaEOpjs8LaWJI5gwI4cY NhdLNtETZiIK09Pyrby0Cm PgrpCLB7JCXwvzOfq5Wtk3 thKwJvclHbM3ucX6KgPIKx TJMtAMSvWqYdjjDpr5Wmy8 OmzDAjxCp0p8vtKVHiPLGa bDmam3mjOHF3TPLpI1M6iW Xli3rxOOtsHMBpmHQ3yrF0 VLCefSCuW2XfvM7aBWCbWO 2xvsg7n4onRML7NYefVATf YzQ7lkK6FASfgSLvKHFymD fhVRxuf820KFL4GiBtNZGk v6SlY3KxoNvdS88tiMbzV4 6fQRFboKereH8vyOfdeY1p ZjBcZnMyNFxxbFxwbGFpbl xmMVxmczIwXGxhbmcxMDMz WUtpM2shUwYtNDGcgXrmIR tym1UjFOZyVIJtNqewtxUh XHBhciBJIGhhdmUgcGVyc2 9uYWxseSByZXZpZXdlZCBh yHwsq8CuT3goMY5wZ5MsrC QjajGbtzWmMJnpXLQnr8i3 kCUxbNhxm7BmjGKkNQ14dq QdHPZxKNQ4WKJcb5ejDI80 albgTaCezC57hvZwgmPwSU Eaj9eeW8xcjTAbn2Ekj8Fk hrZbGTtyn8NuQA3bhGNcue vbyHC8DVPkyNAyvsYhjvP7 aOxgUQFxbQ4qkK9jkDsqzG 5zLrQtIhNsDGxgGR1mZPEx G7ximBHlWIMfQSGnZ4iiLu ImrF7htJizDcunqiP9UHKy cn19 Clinical Information (test code = 8705636707) Shivani Schuler is a 47 year old female with IDA1. Gastric polyp x 6 r/o adenoma2.Duodenal Bx, r/o Celiac disease 3. Gastric Bx r/o HPylori Gross Description (test code = 4835755475) x1nstKBbDMHfiMSGIBD9RE VkOM2mzUxgvPw8zAmiPUJl fiA9gYDjAVcqj2zpYDR3t7 hbjtOWWohuPRAbAI0gLGgx CTOsCA5pAsYeGNZlEcUpDU BhcGVydzEyMjQwXHBhcGVy mCX1DAYsCG9nhnajTFmiNZ lrOZGnwvT1ZYInvQFhN3Tc EEZeAM6qdiqoBTD1ETJIJn pjKd8pgSEmkKpdKnFxIlKh YXJzZXQwXGZuaWwgQXJpYW j7hY0JDntvSBA1QJXCKqsa KnylwHcfv1EofCVxCFOhPY xcaWQgNTEwMDAgXFxkYiBP NjMaLeG8Rjz9PEU2WpB6FK g6WQKZOAIcNjogLWB8WfH4 HBx1LSLqJH3fKWdugLLfMG gmFatzPDuhD837JLyaXWKv S8EqJ3MtUGycLrYeNZopXN JxFAIuRQbqNWMvN2LBXBBt EBY9LbPhAFZgWVj9DUmnW5 WOAOAxIOLqAaJ7ZJAiLxX3 CRu8AHOAIt1uXOzdRiUjTX r3VYE5DIo0CeMlVAQsWgOe MCZhPPOxKGjfcURqUO7htP ncJLXbWE3UAGQuPWmeIRWo FuCmZ2SRT0xHTM4hNBcqrT JjaFxmczIyXHBhciANClxw LWLrFO0KGKVgCQcoCAw5it RjFIXoRgEqOHZwF46yk0KS f2LgCB6IMHa1ykIfsusnwT 9qNPFeiaOzJHsLuURxtR2r tdRDBXmvMTNrH6NacoHxAJ pbJXPvuk3leAtjCXqvIyJk bGVkIHdpdGggdGhlIHBhdG jqojEhE3X0ueSbBB4rLRXZ CJDstW2eCISbTLUuv1GrnB EqrHlxJ2RmvDSwPlIah8n6 dBM7LWWxsnXfBKMbwXPdZN Iafm2gHNlkPnWtP4R9QKXu USAza02jmNB0iqMgOvRpjY j5oEBqNMI8OH4daQjflsTy y3g2uJ0wFJDor9Q5PKEsw0 W7RBJfzwSweAFooDRtRUTs MF5ybdSoAD02OQNoHHxqGE ebHXI8WLS6WLCfoPEbz8in payrVb2kFGmgCO2iVNuxNP 72SNZmOIvkFTVaB5NtB4L5 UCgoRQRsJRDgnRVawR0pmh EckpUorPo0LOEbEBN2xNDs hQyfKAOlYbqyqGL1UHSlXx DyveXwq4HdhSl5fPZaTCih IBKnyS7foK9qECMyDDIhiq OZToyoDAKsONohf1BcJZwq cGljWHNhMzAgDQpcZXBpY0 2pr2CDb1Yrh5hcbZdfi7Vm fEMsSE3doPAwJM7Pn7ayOR ZjoXDlYPT5HWxfd3jwYWeq ONP8UJHpDfVgWBWgOO2ZIn IyYByoOUf9WIqmZGd7OAn8 HG7CKfCcLDRrDlc1RkV0Yw DaNIc6RHryUS2MGBG0RACs WVSmPDzlJSP7HDNySOd5RD IgXFxzcyAzIFxcZmwgXFxu E33scDIqRQajZjNsPKvmoG boURUiSDI2TE1JYQJvQxSd F1PAD2cPPO9zBgqiidRtWY PlnvDGRzgbYJPeJH3GZHUn BKbaDTa9bwQnTNCaJlSxRY EwP71al1IBz5UnWQ9FAZx5 kfMxvwsrdJ2qPUAfnmMjn9 IzMFxlcGljWHNiMzAgDQpT dAUveD1jwqSBVNsnGWJrU0 KbubZrOKuxLFMqxm5pqDnh IGxhYmVsbGVkIHdpdGggdG hkTUTirCdyhkVaM0I9lmGt FO5nCAUCGVQxbF0kDPZtZO CzCIRwZOGpdE6kFDU8d3Em ykLsYQQDRIRrzUqoKH34jG BjZWxpYWMgZGlzZWFzZSBh zuIkivUgj14ctoUhz5JxVI 5xvZzwXUvLGLzvFuDcZX7x ISJyqtWel1KuDK1rCQIwmN JnBIRuewtorDPnYGl6pXPc UYXcZcQheLkxt8ZdXDGqCW ppNI19pmPcAT6wZNgxDG8u CJenXB6eTHEqLSLnRLNzYy HrfMFjDnYmtWCtLuLlS54q YlDOtXFlp4XiY3odIJ5lxF YbXrvunETkJVIbhXxei9He rBCiBXMuy4JasFRsWJtgTV 8iVNM7Sx8uiRDbOVUwstU4 d2KlQZunZEJsHptkRKOhFC sks0ZjLTEsbKAOc1OcMA4Q XHBhciANClxzYTMwXGVwaW HZo6WuTHFBZtvhwEnbIgPn gSOvAvD1ICAggGIzMKI5OG 4xbWzjQWMkEIq6HPilSFLk G1WeU2YeULqiIpGzAGgjWY SwLOJsHAhtWWJmO2PQKZRh BPI6JyZsLCVoHXs3FJprE2 QRWEUsPAVmJvL2XYT2WzP9 BRa4IPAIZh1eNYafIjMfMW BeBqO4FNa6YgOiELFoCsIb IXToYFHbBHtemVBpLQ0dlA ggIYDjWWCuFAT3YVDsoJEL h7AkHVSqHCtrMpNkAAFSZA OSDP6CEgFTYRGsHvFvkAMi KG2JFXGelqSdYVnrfPipiE 9uaOEqI0tjBxEnYstkjOfm TmVzdERvYzEgDQpcbHRycG FyXGxpbjBccmluMFxzYjMw YFLayLKCj2YuABLFAxXsJM NpbWVuIEMgaXMgcmVjZWl2 BSLvoE1kWr9idCNsfW4nhN QoXKdwWJXfb9y9aYE6tRVy xLO2uWHokQrwIkUfXI0syB YmQVFDUK74oSFcxgPrTTFn eN7uUXBtZLWaPRD6xqpeZF TYHGP0tMHex2G1FElbGTJ5 gY1shQlyYfVmB4J1VIAuWW Aeu78vhYT9zvJbBmSbMJJn xl3fhS2hDRqyzpWgqHiduy Owv6B2SDOen5E4BCUqjpGy kUIclMFeVRFsOjX7ZYFnYm I9SGUdORYuzDKaYDKtHS6o VGhlIHNwZWNpbWVuIGlzIG YziFOhgxHxTXPpuu80M6uo FKWcpC3xe0xiDrOfBKQaVY JvzSGpiXS9OHHenD1hjO89 svJqhpMVAS7ohEMtOH7RTC NiMFxlcGljWHNiMCANClxw QWMsKFbmq5FuYOmwsHtbCD PcFgYdBArJqXeqNLWWL2lo kZQaVFgjPBFBNIbUI1CVXC 2BQMUftWWVULE3PQ7iWKpe JEFiA2MbL8XadaB1i5peeM qop6IefYWgMP3imEPgVY1C XHBhcmQgDQp9 Disclaimer (test code = 4250680929) s0cauIDjBODtu0ztJAFptE FuZzEwMzNcZnRuYmpcdWMx QJtgesPaSAfra1XoB3RzOt AwMFxhbnNpXGRlZmxhbmcx IBUdPEJ9blCsBQElKEscNP MyFXrvMz0npNXbbYaiFyIu UDLnn3cmqaOGMForUwBoU4 00HUVzYAaws6iii0WvJPSp lWDqu1Y0PSIJkkygmBn9dN keK43zt6H2CwhjO8icWIYg NFNlO2XeZT0rEDGkJaa0FD S3XJG9MMZtIWBcH2QrZF3t MVYqvJHeOQu6q6kwxSufNT LsMJI0k6nbSRiqvtSoMN8n if7oaMn8p0xaqhMjUYRdOJ VetERDSAJwS7UwzQhkXj8j eQo4vJmsRawmLAX2Bnr5ZM 4yuk74nsm8oTwcENCujwnp GqW3UXniJWNtczjcMLp5DB uhYMLcfVU7MPKwaTNdD9Hs DGCrKZ3ypjw5VXS4TGtwWA KpSeW4WDCnlFMwNVYfhYhx YChcp197ZCV4UkOhJG6gP3 Irt4P1oM6psMLaUKEncLVp VhQdXMYeyu5luXQlSWtlm8 XaQMX6vtH2xJVzjMPkHPLt GD86Treuj4AlOjyrq7UkX9 3uhYL6YXcln3zuMV8tMfL4 liVaKVeve3ypfS1rDzY0SL boPZ2sDR7nPPBclU4fzizp XHBnYnJkcmhlYWRccGdicm HeBb5irKfzPAB6WFhlX9yp mM2yCdS4NNjrY6thuV4yWL z4QJnhuEE8JGPjiM1pKQ7t qnqyb2bgIBzbOOglFFKcrs F2exZ9XAUfkVNdB8PckW2s JTJgAR4jmhsji3yfCOL2US ijLEVbXDB4IjAvGKBlm1Lq mma1NoBjs4ZgiRTgTBgzU6 4wq489YQTwlsXbM0fhwZYv ecvtnDJbybwqLHkkelM5XV VnimIlv3XzVMDxREX5DHmy VLvvxMJhBSAkiMrjx6duU5 RscGFyXHBsYWluXGYxXGZz MjBcbGFuZzEwMzNcaGljaF nuRWdeUqGwPFHuXQuoF8wc ZjPiJ0PhYLItXzGsuBTvV6 ggVGhpcyByZXBvcnQgbWF5 DKlvV1y7CHJhcsZwxIb9xj JeQkOqYZLaHHS5SRykgWPj CEEka9ClevpdcIGnJc3nlI ZoHFVolW7mIEKfRHNwNUwz FL0jzLp9LUGYiZWunWUeYo HYWWYbPV53baAlHSVZnwgg f8G7WNlpPPBdf0VmbZXqL7 lqt3ZyXHUow65nLO4wm8Z8 x7cxMBT6AE2od0OwEFPdxM BhuYRcJKRig1Vyznlkq7An XCTdfdUuf3PdHYYohpKfmV VfSENnwmGdsd5dpkZrALOn DJSoH7PtrizawRrhxpMsQR Apoo6urdNpKNL5BIICZWDz BLTwg5VokY6chNKQWOQ0jD Nput1habEFnCJlTRXupz67 IGJtXG2kZ9veHMQqKAVbil FdqKCnb5AxALQwsTF3zFIr LE1GVrJTm21qMTBbYEJEej KxRFVyzPmsnDL4gqE2kM8e IChGREEpLlx+IFRoZSBGRE AfTJ7bfqOah9PjhdJioZaf WQCtrMCup3JehQDxb7RmiW izh2NamJOpeLRaGW2zCBIm clxwYXIgVVRNQiBMYWJvcm G3y7PnSQNmMOOeYTL9uFbn ezo3HJVnwG1gPIUaH0nugk czPRxfYDJzv5LvqB3otBGB vPJcl9KwuZHjeIHYoENtCQ 3dhwMoHTsTRWwLWNC3vwLk BNQwn9QlKAbyI5akO72gvW yjwOr2wOR5WQS7eC7zHpl+ IFxwYXJccGFyIEFwcHJvcH FoRESuqYqydiTgT2XtsqFt lX5joAVwfkYcPC0dQP2fS2 U2vBJxRGOercZqz9wtYVot dmUgYmVlbiByZXZpZXdlZC Gbr4CsHXygLNQ7XEnlixTw bmNsdWRpbmcgSCZFLCBTcG GnmSPuHRW1GJtocxShizVs BI5mvM5tzPyudN6zkGAjbP Z3rkuxFAYxYMKynNhrZFAy HX4mrDelxY6lQxOfTmQuWI enGJ8oFOOdJ2quqOWvDSAx CINzW2vbNtVvmW7wgFijKS xjZjJcZnMyMFxwYXJccGFy XHBsYWluXGYxXGZzMjBcbG FuZzEwMzNcaGljaFxmMVxk IwWtBJMwOGjyR4ovHcEfV1 WfDESrDyGagEFzU1qoMKwl FLW8AHYkJR4sqRIoLL17vI Ruf3tlDJclyFalja7gK82q wGUqDKmutKizMRGrz06bx2 IiWKBojoJdfw7gFEPguoF3 aK5gBKGfaWuwGSQlgGNlHV Mjb1KwIPwzvILvpnSzLPhh TGMoHPKbiLRerqT6wbBreh CcpwHiBMYvfXkqHXNxs9Cg NTFvCOhub8Vqow5jrCCwRQ AtcwQMvQlbtLDohI5yS7Wi VOGfISHhvu0iMNLjuL1gPA cqw9PijykxOFSnDYIzGGJw ycJltu5vVWDkmAMAUA0KNW ihqFCqa2AabeXcM3fNDNN6 NUQwNjYwMjgxKSBleGNlcH CpDWPknu76STSkxM0fkDfp IXOveR4spU8vsYqblU0iDk TaBcIhHHsvMB7xRGPtC7ih wDRiMJWyCSVkY4siJoZctD 9jaFxmMVxjZjJcZnMyMFxw YXJ9fQ== Embedded Images (test code = 7858090894) [facility] [id number] 19:23:05* Test Item Value Reference Range Interpretation Comme nts Case Report (test code = 3165212899) Surgical Pathology ?Case: [id number] ? Authorizing Provider: ?Dominic Keita MD ? ? ?Collected: ? 11/13/2022 0805 ?Ordering Location: ? ? GI Endoscopy OR Department Received: ?11/13/2022 1016 ?Pathologist: ? Joe, Suimin, PhD ?Specimens: ? A) - STOMACH, Gastric polyp x6 r/o adenoma ? B) - DUODENUM, Duodenal Bx, r/o Celiac disease and reasons for anemia ? C) - STOMACH, Gastric Bx r/o HPylori ? Final Diagnosis (test code = 9046068949) u0xphPBaUUWzq7pmPFZqdS FuZzEwMzNcZnRuYmpcdWMx AGrrpvSmUHzuwKunXPI8MM QjYU0ycMvwhCb7vLasXCLd suG2wBCmGEfpz4krDNB7f0 ypjflaMSPmHKqkOj9haERm qZojCtKqLNPeRUv3fA53JI BvpY6kyIJgZTl0QPYykLGx dqUxIjVsYNAdcRWlnVE2NZ KpEC2lktekNPtgHFauRGUf nmV8LBAbiURpT2WrTNLgMM 0xlbmdRAZ2XZdcYFBzPMC6 ItCyYIEjg4Spaax2FkGfxD FyZFxwbGFpblxmczIwXHBh eyWAOkTVDW0IHVTWXCOQC3 pZXXLBHC4CSXWHJvudcVTh NDDjBIVxGMJETP7PXAYcQ4 uDTuRdDO4DLZOgPBWqaPKh WCMobpLGEeVGPC2ULP0HLP wgQklPUFNZOlxwYXIgICAg ZCZlARcXD0FXFIRqSEARA8 DNEKrAVJivHm8hCYUVSX0J V0lNL3JUKWLTOP7WTPxsWV YeLIDmGIXgRP1ALDbsNSMA RE6AULYGAMDZFJdFBQMURW RJBGdKBOCQO9TQLGaGNDVk hlrlLEMzVo4jU9YIYTTXPB wgQklPUFNZOlxwYXIgICAg AEOrCWSUT6EFWwMFBO9JA4 1AGQRMIAMOCN8ZPOYGWOgT ET1UGNVNHGQDMQTIV2EczE FyICAgICAgLSBOTyBFVklE DX9UYVIRRqBPBUzGLTUlYP lTRUFTRVxwYXIgICAgICAt EU0GETfdDREWCJ7CLQFATk dBTklTTVMgSURFTlRJRklF LCNRUXISOL1BNg7GWQMGOz xwYXJccGFyfXtccnRmMVxz a1QuW2DiJbMmJHtayaLcQN ZaDhzdqwhcSXBqPXC5liBh NQXuJNbxADHhRHasYy4drG JtfUthVdOeVNLkv8dhtpPF DTrxFsHzC935NWKwZNzva8 lxs9MnUMUsnUJse1G0EVDN ugftpSv9l1akHpHnZhN2bL BlQNysA1fuvuAwkUYmH7Js jVVcwWj7ySjmD60tg3I9Wo fxB6fqSXVoKRBdS2KrVS3t AGEhHup0JRA8XHB4XXRqWC AuT9LsIG2aFKNonPRdJHt0 m9yftXsvTMBvTHH6o0drBJ uzqfN6EX3wqm2lrAu0v9tj czEgRGVmYXVsdCBQYXJhZ3 OqyCqdJc3viTh5yLojAsou GLH2Dpq8ZX5vgu72hmb7gT byLVCfpgezWcL2ZGcrPMEp bbuuRBv2QWhgMDMleNX0QP NrcPQcH6DxRXQpTN5kira2 IOB4SFxzWZWkMhS4VKIeoO LqIQSvgEvqRMonu971MIP0 CyNjUU4wM5Hlr2A0yN0ugK KcTPVfrQDxPbIlXZWvbr6v iYZxUNgta2AkACU6ywR5vX MjgKChXDZfYV98Gpnla5Sk GaavVBG5VCIxutHhx3Mdr8 udXbVzzbZeO5woK8QdIABe NNVeGLSiZoKplrIhd0Smh2 QcqFZgrTa5r5tcAGEsCYLc lBona7oaWZH4AFPjX7I1gX Sux1cwAAgxOABbzIS7qlE3 BDAkxOSpX4TciU1aDIQvQN 4tlew8n9hrCND2BKasKKSg SzP1odC2YMMohEQxVRSgpK xmXGaxi088ZPE9AhVaIZLb b6MlN8EnwTcoW08lcHwpH6 5rAJAbfXztzF8ulWxxqL5j ZjBcZnMyNFxxbFxwbGFpbl xmMVxmczIwXGxhbmcxMDMz GJheP6bfLxMuDSJmlIfgWN zao3GlADEgEIKwJodtadFf XHBhciBJIGhhdmUgcGVyc2 9uYWxseSByZXZpZXdlZCBh qFial8LdM8opQO2tN0FgvH ImqcQjifPkECsiQKJrk2p8 gANqiXnbm5QonIWcVI32xe CgRLAbSOB0BVOzf3ogYQ74 fhztIwHuvY09smObkjLwNU Thx8moT5aioZZkp1Yvp8Ej ywMxLSrdy6OoAG3ovZAfrh dhmKJ6PDKtfQXjufDedwV7 yZviBHGlqV9dpN3ivHtumR 4aDtXsNwEiWPneCQ6xLPIt W7ggwIAoFNEdPKOoE1hfKr PdhB8qcAdgGeduhkZ9XVZb cn19 Clinical Information (test code = [id number]) Shivani Schuler is a 47 year old female with IDA1. Gastric polyp x 6 r/o adenoma2.Duodenal Bx, r/o Celiac disease 3. Gastric Bx r/o HPylori Gross Description (test code = [id number]) c9vwzZWaUCBakFXQRKB9IK YlJB6puBzegRr3bKxdQDKo trQ7uNVvPPzjg4sfWNU6u6 cnlzVZBmogNIUeUQ7wCMuh LJLcSM1tJhFiFKOiKnCaCC BhcGVydzEyMjQwXHBhcGVy eLJ9OYWnBJ7loplrEDunXA rpMMPslbK0REWqgDRwI3Js FLEtMU9vhpadPDR2ZGHUNn cnJh3qzRHilJnyCtCqPaAz YXJzZXQwXGZuaWwgQXJpYW e5nO2HHesiIOO4ARRANpuf ZftqnImpa2NpiLZpLILsTK xcaWQgNTEwMDAgXFxkYiBP FaRhKhV9Tod9VCQ8LhZ7NB n7KXMYKEPhMfhnRCO3VyK9 MAq7ASWlXV2sKKafpTQgBN wqPvfsYVpwZ085RRffTPUa H5DwS7DyHJtaCzEgXGwdTV QjKWPzGJayZJDeI9CGCPZw YEI5XeCwXSTmNOh2CRwcO3 UXKHFyDDUoIiB2SDPsFhU4 GBi9PYJZHb8jWSkcFxPzER t4AWQ2STb8KjXbTNGbFiMm STVpSYXfTHkdgSVwQR1toY tvSTEyRU2GYRSqMQnbRVHi KdHyY6PGS7tSFT2zPQkhdW JjaFxmczIyXHBhciANClxw WXPiGH3VSCPqJPqtIKa1xk AoHBHdXmBcVHYjO39lj1JZ r0CsTN9AVGl2waMsnwbwiM 3mDNNntlYiCQlDnEYcrK3c rhGSQIrtITKoU7LqppKsFJ uyXMXfjs4gtViyZSvyHkPw bGVkIHdpdGggdGhlIHBhdG fqzoVyP3R8zvYsMG1uNFDC SYXdgL2fQXLzXPWvh4RoxO JlqBlwX7VynSXlRxDtd0o7 gOB1EHYnllMsJKKwbELkQD Cowh2sWGxcOuSbC7O8AIBw UKQra66ziYP4dvWgUdQdcN y0iECiCCD4YT5tbZcxuqCt c0h9xH9xMAAlw2M3DYXrf1 W7RZGgryJaeJUycCYzWEIg SO5wpsDjHZ99AHYjHKdvPD whRNT6PQO0RWWdzKTmd8mv kbdpDz9qOPezUZ3yLDhpEE 08WBFpIRgzRBOmZ6RrZ9L4 CDktPAPrAUKqvCHacX3gou JlvtTuaJd9OGQkCIG7tHOt oJryPWGzXlzpxRX9BAMgYn GrfuQpg6UsvJb0iOBtLCoo USNhzA0avB5aLYOkCDIdpl KGCoziYOHgKMwob6QeOKqs cGljWHNhMzAgDQpcZXBpY0 6su4VIk6Yua4jeyVvzl2Kd iZPfXL3gbUUqCF1Gr6umGT XpyHNjBDL0CTqso5kbTMwc QFO2DCUzIyEjHTRzZN1YSc AmNGynYLn9QPqiJHt6TYo5 ON3HFuNsNOKeWcn6UkW9Il MhTBa2SMyrRW5TQHK0FZDr VNTjCUouESP9NIFnDPy9BX IgXFxzcyAzIFxcZmwgXFxu S16koHJuDAdeWuIxHKdsuD hnTRJhZKR5QF7BFHAfBlZc S2DCF5wUMR3bQqymzrRvYF EtzsYQHymiYACwCA9KBJOz FNxfAHy9zhBwAPJgZsZkPJ NbI40tf2DCc2FcZG0FITk4 mrKzykaguU1fQNDuzjHmo8 IzMFxlcGljWHNiMzAgDQpT qICpdG4yciVACFhbTQVzX4 KyyjAuUEffTKYkhp2qySbb IGxhYmVsbGVkIHdpdGggdG xmLVJxyUzsamCoG4H2lpJo FY4aSLXFUZQagI6aOWPkMP DbXTNdVTPywW4wCUF1r5Lt gwRsZPCGUPEarNdaUM23aE BjZWxpYWMgZGlzZWFzZSBh tdKnqmNvi11mnfTwq5PrVP 3tsEhfYPwUSPxsVaZjSJ1v HEBimzXqu9EwMZ8zSFBguE OeTIRkqzcrwMOcZJu0uTIs BSZzMdCubCtrh4JiKUMiZL nzTC46rnPiXY4dFFtgRG8j MXukMF6rPKByMDPcIFGtIb HcrBJrYoZipEMmSaQwG48b DgOZlLRyx7WxG0xtAB0wjA BzQmyjxVStISHiaUeag4Aa jNYrLZOxj2UzoPUzWZcyNW 3aREV9Um3xgSNjYKKrhgJ6 d1VgAIofCLExSkejTVXnGF axx2VbXSEfjSEZj6NsHG2Q XHBhciANClxzYTMwXGVwaW CLa6KtFMWNQdatuBkrJfAe eREfQhR2VDIhiLRuXVU0ED 1piVjfAABmDQx5YQbzTFAk A5JcV4BwJNgiKeSoBEhxGN QrRWNhCBipXDGdF2UPULHf PGD5KlTaLDShXIh8VKbsB4 OGIURlFFHwLlS8ANP8HfL9 GBd3SUKCBv7lQFoeNzEtHY IjHoH4WAx7OuTaJRVgTzNw VKKnERIwXNhjwVEwUX0ekU riKJAgEURqKOO1VQZduGUA z3KoOSMmWXcqKxFsRWVSXO KRVT3BLeLNHKJnIcSvcJTo FW2WNDJllxLpOSxemGphbY 2cfHGsU8doNpFqDaobpSyn TmVzdERvYzEgDQpcbHRycG FyXGxpbjBccmluMFxzYjMw ACZklGHEd3DxZAORJuRmVR NpbWVuIEMgaXMgcmVjZWl2 GSKizH0xPd1txNUodS4czL TeFNfsJDUam9j4kMI5aKQi jOJ9dJMykDqiGpMyWT9zpQ KgIHYFRL52tPHxaaTmXLSe xO0kUFOtADFmCAY3edjvJJ PQKYX9gPSoz8I4OGznKLQ9 aA3ptFhmPfZlY1J7ZOSlQQ Ern89klUI4ydQhYxIjPZJe gp5vqN5xBBgyhaPpdFrutd Fqp2R1MJBpr3Z0UIFoobIv lEInfYSvVEJnXeM1JHQcPk S7QGXiXNCpzWXgWJRyXW2h VGhlIHNwZWNpbWVuIGlzIG PztODaedMiKNJoft60X1ij YISpgF9xb4dnEwCaABIhWX AbfRJnxCM3TKKbrP5jlB95 ndRsemCIHV8ahCWfZP1BTU NiMFxlcGljWHNiMCANClxw EPQeZEddo1WeVQoftYavEL YuGzGxMObLyJgaQIGWL0eb qBZqJVirYBQWSUtVN4GBNY 0SKSIsjMGHHCO7GV8xSPwx DYWjT5LdY7IokmO2x2ejmZ fio3ErmXWjHE4ewFYrPK4J XHBhcmQgDQp9 Disclaimer (test code = [id number]) q4sspVSzOKWkd3qnGNJdgN FuZzEwMzNcZnRuYmpcdWMx DKsislUdZGrij8DrM6QtHa AwMFxhbnNpXGRlZmxhbmcx WNNzLLN6reLwHOLtBQpyQE WyETcoBz0pmCRubHmoXzSv BFOmu3totmMNNCeaLaRlV5 91BRFhPZlec4mqh6GmKKBw pGGqz9D6DPVNocyfiRe1mR csN88ta5A8AjpcY6nwHRFj BMKoW2SpWI7hWSSuUph2LU G7AQO7RAWnLWVbZ4MiWT6a FZYabYUjBSn4n7gdeKgcVG OnGBJ7u7qtVZmcwmSbAR4l mn4ijEp7x9zoqfDsGQUuCZ OhqTCQIAWtN2QktYtcAr3y yXh0aEinTrzkXSF8Bez6AL 4dtw40fje1oPouKBWfwcax DyA6CNriSYXxdogmSPy0CU nrPHIzoMV4HBBqgNWbD7Qu MGCtLJ4rrnh5KBR6KZsmKR KlZzS9CXVqeASyUSYzwHkq NNpzt135ROZ5DgEqSV2tH3 Oun4R6uT8smOKiUWAynIHr JlYuPQPqal1izIYkQHwre7 ViUVG4pxS4eYJwrQGuXISb MN81Zgriw8OnSrfkg9AkG0 4fkOJ8REznq3euFV3bPtP7 owCyDRreg2bbaD0yWxJ7VS svYD5eCI3yNCOzeY9lbyzy XHBnYnJkcmhlYWRccGdicm RiIj3bvMuxYVW4PUgbG1rl vE6bIxM6JAavI4zmmK0yNA r9YYtnoNZ5OMShxC2lQY8p uprrh8teQCfyKSejWEVkcy F8ekZ7UTCctDShP9ZulY0g ZALnJB0qwvonm2dbXLJ3YX vxHPHpKUP4CuBpTNYug1Jr wad4FsNgv2LbzCKsPNwfL3 5ka417XNXtdcSlH3fovNFx nmqysAGbqfxtTUgeqtJ4GZ UdkwJox4HeWHAeXAI3KApa GPihzBQhDOXqrVvws9fzA9 RscGFyXHBsYWluXGYxXGZz MjBcbGFuZzEwMzNcaGljaF azPGbfEdZhJAVkOUnqS0ow LxAlH5FwDKYrXzUwsRDtH5 ggVGhpcyByZXBvcnQgbWF5 LNczT4n5HMYhbaMiiQn6wv JoUjCnBDCxSIR1MNruzQSn UROcg0AmofxavBQgVv1ypC BeAZTdfA9gUGVlLGUeXLfy BN6ifJe0AMTVcHCqePSqRp VBVWKiOF60zdLlYQVJaojn h9C0BBoaXJQen1CokFLhP6 qzz7UaNGCko07fXJ4dg5H2 z7mjOXV3SO2ug8UyNTCeiK FtvKUnLVPhi8Kkdbmyy3Je VDIaqnVwv7PpUGFqbiSbpG OlRHAurzAkwk5xbvVjGTXx CEIrM4ThbwcbqPoylxLiUI Ncob5hsfZvCRD5DLYLGWDz YJGnc0AovL0osULMCHC0yM Ilye1arcKWnSCxZRGsrs19 SRYjYC2sM6ikVEAvDOYopm RebAPbp4KaDNVerYY7kPCy WF0JChEYl33cAYUxSWWAmt EdZTIvuBwrgKS3qxL9tT4o IChGREEpLlx+IFRoZSBGRE RlOM2ksiNdf6UlrrLhoHwa ILPtkTFag7KenDUja3IjiI lnz0ThuXPekJJnXP0uHDUl clxwYXIgVVRNQiBMYWJvcm J1e5SaIOYbVVEgWSM6mWod opn4QUVvhS0xTYPrI3ffyi wiEAxoXABty0JwtA6jfSVY fVXfd2ZpiTOabHDDnLIaWV 2hbpEmJBrWTFdBXPA8oaLa ONTxh4RaKUgpD7naC31juA nnePs4jMQ7FNJ1nT8mGic+ IFxwYXJccGFyIEFwcHJvcH DzVHXkxDlfciJgV3PqxpMc jT5ixIMgupBbLX6pGB6mE4 T5qTVbNEYfpmMtj6zgABdk dmUgYmVlbiByZXZpZXdlZC Fsa0IaKVgiZXE0EMygecMj bmNsdWRpbmcgSCZFLCBTcG IueTApEFM0KElmgeTzpcSi UL8waX7fnUhhvV4mkWEwaH B6wsaqMJQgXUGjkXniRCAq NA7avFumeP2bMnIiTaTnXS wwBJ0pCRClR7wplUTwMOFf DBRjI9wsJxBggY3ouVlhAP xjZjJcZnMyMFxwYXJccGFy XHBsYWluXGYxXGZzMjBcbG FuZzEwMzNcaGljaFxmMVxk SyAwRGOoSAzvD6fdZnYwR7 OsWAIzUaJngETeF5goZNwk ONA9CKLvIQ6ndWYcRC27mI Upd6shGQghdHqant5pG65l rOZjLSeooMoaEGAnr07eg8 NyHBPasnEusq8sNVAabiR4 wH5bVJPxwAdmZRJixYTmAT Ceh1AoTPclbDWsbhZsCLdb RCDeZNEvcZFcfbT7izPpsd FuqhGnSGWgeIhbYEPky1Oc DTQnJNroe6Bpal6zxGEjSK CvydXRkEnkvIHnhA6oG2Fu PSTiEPVhxy4sIGWgbQ5sKB tca0WevuxkZOIdYNDdWEXk iyBmze9zZCWnxAFIYW0HUT rziYNdd1CvkuDwZ8yISXL2 NUQwNjYwMjgxKSBleGNlcH MvGUPniw42BLPnwW2klBtp HFBuzW3ziT3xfZirbB4vDc VtWaSaJXyaDW4eGUYgR1pl qDCrEJHlCNYoQ6glQcTpsG 9jaFxmMVxjZjJcZnMyMFxw YXJ9fQ== Embedded Images (test code = [id number]) [facility] [id number] 19:23:05* Test Item Value Reference Range Interpretation Comme nts Case Report (test code = [id number]) Surgical Pathology ?Case: [id number] ? Authorizing Provider: ?Dominic Keita MD ? [...] HPylori ? Final Diagnosis (test code = [id number]) v8humFKcCCLfa3wzHNVyoK FuZzEwMzNcZnRuYmpcdWMx NIbelqEvYHftaKiyTBF3NC SiTH8bjSuvmSi5wGvsULSn amG5gAOaSPawu6qrBEU9e3 scbobzHOWzYGjqOb5xpJBn dOpgJpYoTOFwBKh2uB30XV QdbN8esQJtFBd7OJUweYFo uiAqBzBqAFVhsKRshYQ2EC QsEY3zzfpbUKjeUVqoMCIk znS8SSWrlBKpK2TnVMCyDH 2mmkwvKVE6IXchVJKcZGX0 ZxDoRKVpk5Homqp2WpMseF FyZFxwbGFpblxmczIwXHBh unWZIuNJGX9EYNJNJTODZ4 fQJRGNJZ7YYJCJLaophEGl HBDzWSUmYNYYQI2LJDFsX1 oVEuGqHK0BYULpQKXrrAVs MTXvhiKADmBCID8DOD3DXR wgQklPUFNZOlxwYXIgICAg AFCiSVaWJ2VHOSNoAKANL9 WAYZlBZItjEc2rBUKRSV0B J1pSF3SHRAVRSA9QQUunVE QfWJBrWGCyGA6SXFswXUHM BE8CUGFOIVEYZKcJXMYRWG SNUSiZOCXYB6SRNStREGBi jrlaVNWuOs7yH1ZTUYPCCX wgQklPUFNZOlxwYXIgICAg AAXwJPXRU7RFNxUKTZ4YY0 1MDEMGPCHOMV9AYRCNDEsT IM5IKBBUWNAXNSZXK8JgmE FyICAgICAgLSBOTyBFVklE GK9KHKNKHxULNXnCKHMpDG lTRUFTRVxwYXIgICAgICAt LX6BNZjhGDFFOJ3DKYSPDo dBTklTTVMgSURFTlRJRklF ARPAVYEYUP2QWe7KVKJEEl xwYXJccGFyfXtccnRmMVxz e8LbR8EkFmOlMZyuvzNyCZ JxIznfgaurQUCoDMJ5fqLl JITdLDlmMWSoEBozSt4yyN YppAdeOwVqYYHsx4qapdKM MUleZeQmU025LODdJBpbk8 ahv4DnZERrmBVhz3W4JGIA ohlceLx0l8faKrUpGqZ8sY BgYEhoA9aiuhLkuAKfM8Wo fJBgcCc0yWkcX39ru5Q7Ah kmX1pyIQEmIZIsU7MyBB7v TCXyLwc0OLG4OBY5NYRbMW ZgJ2MxSI9yCQRlfWXeGNs7 m7jdnKrwFDXsHPR2k1nlTW uqanA2JF2yzm3feIq8z6fm czEgRGVmYXVsdCBQYXJhZ3 JkkWcfHh3hcDf6qJokZoly GKD2Ezv7RX8wcw75rqk5pT awOCLkygboPrK5GPnwXAHy olqwOVo6KFguRZUdtNH0AM UgsUZnB3KfVLZuOI1dcdk4 KRE2PFbwWDBwBvT6YCCtwH IeFKDafOyrMCdxn318LBO3 AcUeWN8fS7Nbq4J7pB6kgX KhLBBfbTQnHdDtXUWfht7c oVHiARhfp6ZeYTK9sdU0lP NflVGkGTRpYD63Bcmde7Hj EkllYOM9SIWrbwCxo0Ica0 qlJgEpeyWhQ6mfI8RyMQUx IAPeDFHgOsLrdeKip3Clc4 HwwTZvuUe3j1efSGTrVOYx uLsnx4phFYM3OSCtU7Q4cZ Wii3euRRljLRQroWE5qoM9 VYYzrJGcD1NqbH7xOCNyYN 1cknd1e3akCVV2VMscFXHo EsA2xbA5QLWcdAQlIMWdwJ ljPQelt307GHJ0WwFlTWGg a1GsB7NzvVasM17fsKqvS0 6pHRJfuKzajR5elQumoD1p ZjBcZnMyNFxxbFxwbGFpbl xmMVxmczIwXGxhbmcxMDMz PQdeX2qoDpKyXVPgjShrMX ijh3OpWORwTYLoTjubmoBu XHBhciBJIGhhdmUgcGVyc2 9uYWxseSByZXZpZXdlZCBh hMcze5GkZ6twXJ7uH8YmxF AudsIjohWaYZfeCGHzo7a4 cUXwrLkoh6QviBZqLA08yz NbVVZbLZD0IYBjm1dbWS00 bnhnEhWjpG19yuMuzbIpKX Gwu9ooX5nhrGUuw4Lct9Op qzGtWRzvz8EhTM6zuPRjes tuxUZ8BRGjyOPschYteyX0 qHjlDXVuxR1okL0juPawiG 1pSdAzBqRdWZprRY1hXQRx B0xzmHZwAXHnDAWmR0yaGc NfrD0sgViaWanmdnO3HUTf cn19 Clinical Information (test code = [id number]) Shivani Schuler is a 47 year old female with IDA1. Gastric polyp x 6 r/o adenoma2.Duodenal Bx, r/o Celiac disease 3. Gastric Bx r/o HPylori Gross Description (test code = [id number]) z1ouaHKqSVAfqFMXBNN7FH LdCO1txQoraTu3gKnjKAPl giA4yCIuYScby5hfCDF8h0 shzzOSBxitLYMpXZ9bTQbz NDZpTS2sOcJrOEThVnQxTU BhcGVydzEyMjQwXHBhcGVy hXU0ZJVaTD1bqisdPIhwQH ndZRVvxmU9AHTpaYNeD6Zx ROWzRC2ogduuHQK6LQJGLq htGr3btJFumPcuFwAoWfUt YXJzZXQwXGZuaWwgQXJpYW f5jI1DMhbbBNJ3LXLEEpoe BmlpfQcxk1NvaRHmBUJuSI xcaWQgNTEwMDAgXFxkYiBP OaLyBhU9Bda8CMS9RcV3RO c3DTFLJEOuKkdzOEW2FuL8 WIl3RCPuQA7kGBmrsNCkRW xaIejkEIeuX264EUnmTGGp E3PpY3KtSYcyCfXmHAkjNR BfXRKwGVyyYBNdB1JXCLWg ZGT6LvMfAWToGIh2YYlrR4 NRAJCwSNLvZbA2JUYwNfJ6 DIm2PHPWSe9sXEmvGbMaOI f0WIS2REg7GrMpNAQtUsNu EXWrRSRzDYdxjYYxMN4blJ zpSMYmIC8BDVRlHHetAXWc OfCmJ4EEK9uPCX7oXTmhgD JjaFxmczIyXHBhciANClxw NZShMK0IWUAaTEaxNJy4sl IuPWHgQkPyFXRiA67nk6HS l3JpWQ5RPGf4bfXbyjckfQ 9tKWOxgaNxBHjTeCGsxI4n dbQQEQrlVJFuC7NselBbEU boHPVnvn0jdEajQErbUzWq bGVkIHdpdGggdGhlIHBhdG uuoeMsL6T6zjVcNL3nQYOJ MXYhhZ7bLJFgISTty1BnsU LpdHcqN1IeaUTtZiIsb1l9 wAL6UZHgkfTvXDFycSHdOH Cwdr2qJCtnOtCwE7E9VQKx KLDdu38fcMY9txIvYcBjnY e9kVUlMOP1LR1igDbsrjQx l2k9nM8aHXKaf3Y4KCKju0 G4VZRxkyDruYXslTYeUXCm RT2ppmXnLF96UIXqSTiuVU svOLC3RBU7JSWtaYMwc0eh nxqqQh5qKQceZQ4jDMnrUH 47INVjMThrPYCfJ6AqH2N1 QXnkWDWqRBKiyOGpvZ7gbu VenjFmdWf7FZJhWQX9mTDz vDxxURNhWlpjgEW2IYYmIt SjsmKjc2JohZp5eCWnVJuo MMQhzE9iyX4aZMDuVXZexq AYWcwhGPPwMNavo5YdAXhs cGljWHNhMzAgDQpcZXBpY0 4to5IEl7Pcn7qxuJtpj4Ef zFBzMV7yoRSrHB0Vz2miFJ EdhLVwYYN9WGvew0yvKYtj QHJ5MJNoZqJtQEHxEE7HRp YwUPegKLd9QXihOOt3JBu9 HO1GXlBlEXXeOla9OsI2Sp VyWHw2XFtkJI9XJSB1RQBz YOTeOFdxZYY2UGZnLVa5IN IgXFxzcyAzIFxcZmwgXFxu Q05dzLOzNItqKwDzCQuwyC hrPJXsGPX2EW7SFPRsEaSk D2SSO3sDMS8rFlleztBvXN XggzVOGcxkENRyUW8YNNIg WXjaQEe4guKfJEWsRrOfCR DyA43pg3VZp1AxKQ0SNNk7 rfJwkuakiB2vWXXiaoIjo9 IzMFxlcGljWHNiMzAgDQpT bIIviB4iowETJYyvVMOyB1 YuovGbUKnkZYYzeu6mkPvd IGxhYmVsbGVkIHdpdGggdG yzGYQikMsjvkAeC2O7suIe IQ0iSOQHHUCrxN2jTQVxBP HaMIAaYEFziW0wLLU0f1Td teFyKCTIQBFnvIzyKL37nZ BjZWxpYWMgZGlzZWFzZSBh azVhzgGlc78vyiJml9PaER 7owUenNZoNYUsaBgGdOV8i OGTefmPay3PoQK3gYVEolW FnBSNqifpxqVIzMPn9bXAq VUAdOlRyrSnxg4WtFNPxTA bjRB63fmYtDC1zUZwtPR0n JPfzDU4lZDUkELZpMGSnZi CcoKGgSpHzqUIlRbGaX15x PbHTkNNtr8TkZ7blYF7quR SgXdagiPJpNYGsvQrbh8Fe sCAnCUAco6WgaMQaRRhlUQ 4yRQA6Lo6ftTSyGYIstqL7 n3DwZVemTREtXbfqFVHlGF aaj2MmKXGioPIGo8TrSA2T XHBhciANClxzYTMwXGVwaW WIo1PrPXZZNengvSdnViCk gTToKhY7RPQlyMOqDVK1WQ 9hiYocHONjWEb5CHpoVQNo Q9WuP8IjRCoaEmUtGHrcFF PzUJKrUJzlQEHtD6WBISDp DLY9XsNhLRXoCDj0DKqhK3 QUPOXnHHBhZaY6BNA5CaD1 QIv4LGMYLz7eTDcpMvSwTF EmLjI7LYg6ZfBaYRFhHnEt PQCrERTuUBftpOWoBM5ifB sjAQQtBBEbKWV0XYGbaUWO m4LoQVBuIZaqCfMyGOOHWL JFWW9YKmKGGKPoXeLugMDr CE2HXPWrbmLaKPqqiDlpaY 2hpVXcM2maRlNgTshegYwq TmVzdERvYzEgDQpcbHRycG FyXGxpbjBccmluMFxzYjMw RFVyhLDCx4WcTRBAXcEtZU NpbWVuIEMgaXMgcmVjZWl2 EHXkzX2rZf0slINinC4ttP UwXNddILEuh2e7xES0uJZm uMA9aKHfcLlqMlTaAJ8nyU YxBELIQX34eTOcohVmGEYs mF3jPSYnHWNbEXK6lrmpJZ KWUSR4yBImb5J2LWatRKP6 bF8cvYhmTwFqT6H4NOTrMW Gxb58qrCS1ihDiIjPoUNDd sb8unW2xQIizojRpsIgcdf Opz5J1CDUvb5S4BAKmcxHu wEBriUSqWGYiRkV0ZUMmYp A5AMDzEZTnjVZnQZFyLZ9s VGhlIHNwZWNpbWVuIGlzIG CneFQogiDoJITkdc13K2zw HDEkwQ6oo0soRvTqLEQpFU TnyUQqyDP5QKGhtQ1daJ67 lvDmhqCLUD9lkLYdKO7ZGE NiMFxlcGljWHNiMCANClxw FFOsLIuph5ZdQEelaJcdMG UzBoPxDWjXaSzpERWHW8dq mSOmKQwoCATZXIzAO7EJAF 2YIEOspLJFJCQ1PS4uUTud JCDnZ4QqI0AslzL3b6hvbG gid9YdtMZaBE7npPOcSR0L XHBhcmQgDQp9 Disclaimer (test code = [id number]) d8tjpPMcDVOcz2suGRQgkF FuZzEwMzNcZnRuYmpcdWMx ZVbocjWzRXunw1JnB4IfXo AwMFxhbnNpXGRlZmxhbmcx BILbMUL5cfGrJCNmDBywGG CgLJweDw1ytGIjuQabAjAh QFLig2yudlKNRYaxFwUqZ5 47QARbEGteg4efn1XjQACm xQUkv1T8IERQlmumwUq6vY kbG84oj5M7IzyhQ7mdFWEg QUKrQ8RzDZ7vMIYwYot8NP Z7ICO8HQFxUFTlR4GePH5d YQCmpMVlKRk6s7ozaHgiVG FfBKK5s9emEJzjqmMiNI4p ym6enHo0t9bogsTnWZYrWV SsfUXRAHYrM4XmvFuhYw0q xQl6hHcgUkfrQVG3Ayo2AX 0lta25xml1cWnoOPNrpefd FbP5KCuhDCGaeyhsVEh5TW pzOGDmpYC7LZKcgTEhP5Pd IQIiTH3myds3AUT9JSdfRU DpGzY3RHPotXVwJTKcqYjq SArfl911SFB3QmVjXX5tS9 Lcs9Y1tM0oxWSaZSDntPMe FxXfKPJufs1xwNCiKAaze3 GiLUK7zpQ5hSRpaMGuSXAi SR33Gacij5CjHnzhu0ViW1 0ngZZ5WIvde2gpTH9bOoQ2 obXbCPuev7obgU0zGfM0RJ uqYD7rQB1rTWNyuJ8pigbx XHBnYnJkcmhlYWRccGdicm AdTv8bxRkzAWU7JZjzD6cj tD8jHbL3ECzlK6jgsJ5yQU c1POzjcLE0BERtqI9oCH4p hoape4wxNRrzQOyoYXMids T7vkO3CPXefEPgE5KpeY8z VTHcTW1mwtapm3sjTGP9UW nuWFQuJVY8QfDkTZHfe7Qt mxf0WbPky6QsyMUqXAphM3 1gh123XJScmzRdL4snoOGt itrawOIalsbnCEmledW7UE ZibtVje6TsCFFyVXD5GCtl SHanhXMgROFxnWdae5qpU4 RscGFyXHBsYWluXGYxXGZz MjBcbGFuZzEwMzNcaGljaF oxCKmfPyCsZVHpFUxjN0td AqBeK8MtGKCzBzPwrSMnK5 ggVGhpcyByZXBvcnQgbWF5 SRpzJ0x8XCWnfoAxnBu1ku VvZrEvFVFmWBM4XKzffBWa RNHwy4MxtuwzfJDcZx2tgU LeWOXwkJ5wYAHpFAJvGDcs EJ4pyJi9KCUSiSVipQVfFc UPWTXwHN42rySbSRLGmjig z5E8QDfjOMUxj0BodJVoY1 zrx3LtNJVqb31yCK4co7P7 z5ewSVU1OB8nm1UiZBZtmC YpgZGxRYRtu0Ebbqgls5Gg BZGqwmGac6ExHFBksoFytC RcKIMjmeLpkd5miiDuJFTf XQGcZ1ApbozbzLvoymSzUK Jixw7zajOuUSG8HGFCAYDm HELmc2LnuS1ejTSOEKN5dX Idgq3kwwXIlEFuGAUsbg48 FGCuIL8cL3zrPJQmHIZvem YlaVZal2KyAVVzmKY0rOHu QW7YDfHLu17sKMBcKPBUku VzBXRbqApmpPX1vlX5oR3h IChGREEpLlx+IFRoZSBGRE UpNB9hoiOul0RcwbBuhZip PTTmeXNst2TzcYCif5QuoK lqb4TaqRLqsPSqFD0yUVLj clxwYXIgVVRNQiBMYWJvcm P3q9KkJEDbGPVxHGE9pCqe xpv8SHTeqT4bNRXvR7wmoo owTCdvLVZkc1SacH5znAXZ uDJoy7YfmZVffVNSeKYcXN 6tgdPgFRiDKCyRGWE1fgKv HCVqj0UhRJliW0erY47ubY laiEa5bXG0QHH4dC1oSex+ IFxwYXJccGFyIEFwcHJvcH LlRYZyqGxkfoSgR0EiewHi xN5lmUDqxjEgTC3yGT1uD6 O0uUHcCFKqvdAun6pbASsi dmUgYmVlbiByZXZpZXdlZC Qda2RqEPdwMBH0LCzqhzOk bmNsdWRpbmcgSCZFLCBTcG JzuMZfKVM9NCwocuSmajLc LU7egD7ugNxexC7tsDUkgZ Q3hsnfVRJgAMNevPimEZTg KV5acRpshD7xDiOdEeHoMJ cdPG3rZEUyX7qumYMpHMSi NOAvF5olGqOhtV2cyFrvYP xjZjJcZnMyMFxwYXJccGFy XHBsYWluXGYxXGZzMjBcbG FuZzEwMzNcaGljaFxmMVxk WlBkQVLsRHrkL9smZbXmZ1 OxGCZfFcLwoEOmI6gyEVba KIW5QHQrIX7xtPNjEI19dC Fpm1skDGyucEsujj4wN91g rTWzVGwmmRzxLBSlw68ae8 CiWMZeypRkoh9rUOYxgqK4 wB3mKZHbsKmxQZQbsQAdGW Vxa6YuTEjomSPitgQdKHuv RHVgJOSfjLCsasV2guTnbr HepbGcOQLpwFnpQSSsb1Yk VTPzCVect7Rmfp0riIFhQY JoyyKBdZmktIWstZ3aY3Wp UHNrEPKxzc5iBHXafC7jNC vvx7CokyohAURpISCrPUSj nsEruj8wHCPnaYSFLJ8OIX bdkTLik3CkcpStG2qLCLD6 NUQwNjYwMjgxKSBleGNlcH PjKXFbvh27VDCgtC1gcYid ZQDnqR8lvH4poRfvbK5oUc TkFqMvOEzsKB8rAMWnK2qo sSEnTGWvVMYxX0odAoNipH 9jaFxmMVxjZjJcZnMyMFxw YXJ9fQ== Embedded Images (test code = [id number]) [id number] 19:23:05* Test Item Value Reference Range Interpretation Comme nts Case Report (test code = [id number]) Surgical Pathology ?Case: [id number] ? Authorizing Provider: ?Dominic Keita MD ? [...] HPylori ? Final Diagnosis (test code = [id number]) x8egyMRqMSUrt5mnANAbsP FuZzEwMzNcZnRuYmpcdWMx ZDirkaKbVOsnzRwwHLN4BC OiYI5rpSqnlVo3vIirDYNw tyU9uCVzDOkpy3ppXJP3a2 hnmopuDRFlITaeKt3teHMf mSdpSnGxFBTmAGj4lA54LS RuxF9aeJSfLXx9LNUalNLc gwXpTpFkJKZngQEcnZG8RU RfOF7wnvwcIYdiFQmmTHSb okW0DGDwzEJiD0OnADTvMJ 2evwniDNR6ZQajXOYmYCZ3 NsXdSGBlm9Xpflv8NjAheJ FyZFxwbGFpblxmczIwXHBh taXBIvITWE8DRHWWWHCVU2 kTBEOHFB4SQTRGCqnyxXXc VRGhVMNoSRPXNS0VRTDsE0 uLNwUlDX1FZRKiULZyjHTl CYSpibKKWyDHTW9MVM5PTY wgQklPUFNZOlxwYXIgICAg AEXnLOgTJ4MCGUJdNGDPU7 UZQGeUDEovCf2nYJNRRF6P J5kAU9HWIXQOMR8JDRxwVR TtLUKeGGRzLN1ZORdpHPDZ FN8WLLJTACHQFUuLRICTQP RBJOcAXMZFS5KIAQlRCCGk munqYNEkYn9dZ1ZZHVNWMH wgQklPUFNZOlxwYXIgICAg YCFeXTLYR2XAWfYMMZ7ZR0 5ASZHWTJQPFM3KKSPTILsC NL9PUIVTLXWAUGVWM9HqkC FyICAgICAgLSBOTyBFVklE WZ9IJDOOGdRYXUiJMFMzXQ lTRUFTRVxwYXIgICAgICAt EK8KQHbcQERXMI6FFYEUQr dBTklTTVMgSURFTlRJRklF JGSEKFEYUT7IGx0LMBKNPl xwYXJccGFyfXtccnRmMVxz j6VuH0BpLxZdPLpscnJoEM QxGcffzktrVWYuDBG2mxRv XVMhVQqhBTFkBLikPn4ubO IqjEkqPkKdWNVkl0zpmtYF CVsuBdDwS256WCInRDhrh5 zrq8WpRQUqlFDsp2P9PCSQ sfnadFe0w5avMeWcThB4iG MmEIerX9okckXjrYEkF3Bj jYTwgZj2oHhhA55bn3A9Le ciK4jwJPMiKQIgX6UhQZ0c EOJjVxe6VYA2LSG5UOUzMH KgU2QoKQ9jLKCxgENzEQn9 n4uusYwsRVBuPQG2v1cxXV xsocK5AB8hkv2fwGy6v2xs czEgRGVmYXVsdCBQYXJhZ3 ScySrrJk0twRg4wMulGubs QHB5Jxn3YP7shb16kjm8qY zuVZXougrsEsS9TNeuUBSb byhlCXp5GMdnHMRelQX9LQ AhkZVgT2IyYFAaPC0sshe9 TNZ0YLllNLWuOgR5SFJjcJ OxRDBlaFqnGLddh808SSN7 JtPcWB3xY8Cbm2N0lP5cgH XiIBUyaPOePaQrYSKvza8k iNJqIHtdi0UrDDT5rhN8uO TmzKQeSTSpBE00Spwzm9Nt QoomWRA4BGXaaiWko8Fmn8 prCxNcczEdX5jeZ0DrJGFm STTbBPClQoUqwyQtt8Lft0 JfpLIitIh4i9jlNPQpMTIt yZejq6joBAJ7PAMdZ4E5yX Sse4rpHWjrHPDgdKM4waY6 ADUgnVHkL8HswF4pXAImQR 0chej5h0wyXIN3IXraRQHc QlB5dtV1IRNxgAWdAEEdoK qrTChlu022APV2ErTxQINu p6WtB7CjaCluQ93igZflR3 6tHGFvzZqcdE7mfExawB1f ZjBcZnMyNFxxbFxwbGFpbl xmMVxmczIwXGxhbmcxMDMz CToyD5ndNeJoSWJruWycMD cjm2PcJNEnCRKyVslmmtTs XHBhciBJIGhhdmUgcGVyc2 9uYWxseSByZXZpZXdlZCBh fIxrp0UxG9qfHW4yW1BxhX CgbnZxyeTtNAdeCCYiw2l8 wIZkvUuie1ZxtWQyBC00yu NhDFOzLPZ7VTGbf8cjEZ65 xhlfNdVqiJ08tdAkmoArOE Sym1czB8ydlSQfe1Jzo6Xj iePbXGelv2QqXU3woTNclj jhpUW0ROMuwEUmvaRdriC6 oAdtFMFusG0czT2hhCvvsY 1hDmUfMgKlUWpzKM5nRGKq P0lcwIRhZFCcZUGwC1weZk DsnB1qfHwyWpzctdX6SIPh cn19 Clinical Information (test code = [id number]) Shivani Schuler is a 47 year old female with IDA1. Gastric polyp x 6 r/o adenoma2.Duodenal Bx, r/o Celiac disease 3. Gastric Bx r/o HPylori Gross Description (test code = [id number]) u2lwoOCcNNOusWAIHCQ0SY ToRU3hoSoxfGx1sRffVRZk qaJ5pVDsINqpx7vaSXV3t9 kbntOUUrqpEYVcWE5dJBmm HXWeIC1aHcLcIRVlJnXcBQ BhcGVydzEyMjQwXHBhcGVy sRL8LUBcOL9idzzbNRnyIW lgODYedhA4EZNpbBYrS6Ew GCJsZL9hbfcgIIK7TSZKSa lqRe7juOZecZmhRzLyJhMz YXJzZXQwXGZuaWwgQXJpYW g7gM7QFjvcDCU8GRGMPlyi FtrltUfyi4OhxFCgVEKvGS xcaWQgNTEwMDAgXFxkYiBP GrKgJoJ1Oma8NOC4SaG0SO q6DKOVRRGvYzgvBRV9YgF2 MJv8GGPlEO7tNMrdpKArSP dvZgbgJEazH166NNvyAMDy J1CgA9UcXBvjNlFaUErbOR EoCHHkJFdtVUHvV5KSQBDq GTE8LrEsSHYkRAv1QMdfP5 ALPVSxSWYxVdV7BALiUmO4 VRv7DKMHWe6fZBtyBwRqYI l5BVA4VOl2CqBqKKXmZmPf NKYiZDPtLYsrjNBxOI7xpI abJJErEU1FSSAsPXqxVEKg DhImU8HFZ5hAUI5pKQpiyU JjaFxmczIyXHBhciANClxw LEWhFE9QMRJyABoeGJf8sy PbXSMoDaYmSPGoS37aj2FQ h4UgSM7JPOf8cqEwbbzgtR 9dEGUtqgMqQNmNzTTqqJ1y hlJIRYhnAPFqP9NxjjMhOH pqFWOthg3psUoiPUrvVgPx bGVkIHdpdGggdGhlIHBhdG mbtgStT3P7xkFvCY7dAGPM ZRHhmO3xCAOiHAYyc9BziT QguEioN1KepRIgKkJoo4x7 lCW7IAWkuvEqLGWfdFGmEL Ayfa0jMZisMqHkE7M7QYHp NHGlm19ipPC9voEpMxNrnC j8nZBuPIK4XN8nrRgulhDa x5n5bK6tGKSjv9L8JSNmz1 V9MXPqmiEeaXRkhQVqJHCj HL9ltcIlMX68YRXuKAcnIO njLBX1LCY5XTCmxJSqs5tj cmntIy9bLYrlEP3aCTlsNT 88KMIlONqbIVBmU6WkO8U6 GFhtYXCmJIOetDExiL9vpt RwxxNjgWb7MDChEHM8jZHo oRkpPWUhHbwhdJM7XZMwGy NtxyVoi4JqxRe6pNZcCAgg REOhlK1vkT9aALLeRCXxzp UYGuksBQXjUKvan9VpBBcm cGljWHNhMzAgDQpcZXBpY0 3va3MZm9Vjw2tufBzny5Lo jDXmLG1anISwEN8Bz7byXK HtpLHrCAG0VBxow4ebXYzt OBC1LPUxYuBmPJMxPI7VAi GeNIaoQUb6DWsiAQd7SXm7 TR4KYyEkMVTtUzf0UyM1Pr ZzFOl3LUoaXM6QCDT3EVWa CVClEHwfYHV5SRRrUUl8QC IgXFxzcyAzIFxcZmwgXFxu A15rmGQdILouAzKxGGgcnS mpZCDlJKH6BJ2LLYDnLgOg A1GUG9pHLQ5gVgdiicNzKU IrngQPZlkiTGDaYK5WQTKw NEvuLZg3btIzWEYgRxSfSJ CgH50hk6HRl6DmZO1FWTy2 ulDeobeypZ7rIWXjlqUei4 IzMFxlcGljWHNiMzAgDQpT qCTedH6rwmENGKoiXUAjR6 YahyEhBSwgJBNjvg1ehCty IGxhYmVsbGVkIHdpdGggdG xsACTcxSjsgdIkA4I6esOy SX4lCWKCGWKvrR0wUFElXB AdCHLgSLEhxC6tCVS2u6Pe ksFlPBETUHCgqQrhNV10mW BjZWxpYWMgZGlzZWFzZSBh gtLcpyTgx11cxaCal4UnEY 7fkNmnRBlOWVoeObEiWH1f GQSzllHig7DfLZ8oYWXonI BnFEUeuegqqYRuKHa4dVMg GNPbPlHwaJgyv9KeTZEsQR maAP90egIqGF5sUEzlGT1n APfyFE5sAXGrTHGgUAXfXq EefOFlFxYhzAJsSvSiO78m WvPGbJGos9CgT0nwOW9qzV YdJqhebIWbEZZczAndm1Bm xGYtRKEjd0WmgCNrRFejUL 7sHPJ2Mp1hqLDqGGBchdU5 x8NnFEcgTCFrRtqbEDBuCS vdf2WbRITiiZIId1QuWL4E XHBhciANClxzYTMwXGVwaW QCm9JtHCKVFlcxiHipCwPk eDDvAvU6DRXfoZEtYZJ3TH 8saNbsCZOsAGh9QBhhJNBk C4EnD3YjVZczZrMlPXjqEH WwVWNqGYezYVGgB2LJOIOv KIH8GcDhPNZdCNm3XTsqJ7 AGDITyOSRiGzY7YNF3DhU8 SAw3CRSZQm4kUCkoFsAqYD BoLuC6PLe9GkTtOLUwTiWf YGZkUVGdGTijaDHgPJ4zxQ awUBSjSPIjUTO1EECksFTQ f7NxLUBkBJjsQgFbJYUSWU DOCE8ZQaAJRSHlGxObpFWu FW3KLDFtfiMdSKkjyIzobY 7cuGHpY7xkJyNlKgqpfMkh TmVzdERvYzEgDQpcbHRycG FyXGxpbjBccmluMFxzYjMw XNEhjZVDd9RyLEMBAsElXU NpbWVuIEMgaXMgcmVjZWl2 TTWatQ4uIs9llVFbmS9nvQ HuGOedJSRdh2x0yMP0qHAi yYK1dJZznHwsUhGwBI0yjI CzIJZXDL80oNFcfsUpHXIu vD3nVNJiKXRaEWJ6agzgJL QAQHN2kZHvr2Y7RGnlOUL8 xC8jvDjfWtMeE1N4RKFfMF Mkx77yjLI2gtVlNqNdXYSx nf6scJ9lUQxbpyCqvClrgr Dsn5Y9ZKHve7G8RDXukqPr mAQkqFOaYYHwAbF4TYOxFi Q6KVIaWWFplDKoZHDhLS9f VGhlIHNwZWNpbWVuIGlzIG AzbONhzwWiRSZeil25H9xy ZHZenZ6pw8vhRnOqZAVxXF KbgTUueQZ2VZOroL2hxI88 axOczmIEBU1soWPqCL9WVS NiMFxlcGljWHNiMCANClxw ITXpYOuvn4NrVBmskWckNA DfTwJsAYwTmHypLBQLQ4tv oZBsTHryCUAZXKhSR7KEMJ 7MZMEshKTALDJ8NK9iVAkd PGWyH9XtN1FiczL8i0hmzU hli8FwrKOyYR2ytOUhPE1I XHBhcmQgDQp9 Disclaimer (test code = [id number]) f1pqxCOaFZJpi5fgGDEsuG FuZzEwMzNcZnRuYmpcdWMx TUbpaeViONwkx3CfF0EgDt AwMFxhbnNpXGRlZmxhbmcx NEDgIWU3gdFkXNCpTVqeSJ VdCVhqNi3iwWCuzRutJkGb RTDes5pprzVJCWtuAsSyG2 49QFIdKIzrg9txr4QyMPIy cTVnm2I9JSZUyrfvtVi7aA vrG78qc2B4UehwL3rwZDVo VFRxX3VmZV4iVHOtKmj4MT E0HPP0YPAqDDEaC6OzFA7l DQFgvOGtFDg0n1nocSfrSX PsWYQ0f0jpPZygkvBvYT9x ah2fnTq4d9kzjyOfDRQzFE BjkAPPZSYrG2NpoJkyLi2f vLm5wLcgWufaIWF9Iqy0BY 6dlg18vxj5yAjiUGPcjjez AiB1QKnaGISydsewQNc4NY beAVMleWS8JEEcmRUfZ9Bg HQNnSQ9spiv1LHS7PLoeUC KpPeR4ITRkkEYsNVRrqMcy LSlro563ZGY2JgDlOQ2aP7 Qvw4P8vY5xoOQmAURbcYFp ZwDyPJCrfk3xrWOsRBldk7 WyWJN8thH6kQMykTKeKGSd YT13Yskqo7YnVgzsq4IdJ3 5lxQJ4PXkrt2snVV7zMiM6 jiKpLJbmw8celL2lTlZ5AV mtEG5rHN3yPCWvkB9feald XHBnYnJkcmhlYWRccGdicm ByLx9syBimWSG0PSmeH5ci zW9yPvW9PQdeI7zadY5oGY o1QYynvFK2IJHmuZ8eZR2l osryd5nyTDqrMWauHXFtfc A8ddQ9GSSdzWMaC6LpgM9j GBCaNL9ckgagv7tuXJS5MR loHKSeIEY9FrWmXENld5Ak bci3RcEtb7AhbYMqRYuoV8 7bx890LMKutxSbV2otnLPe zuoxsLSvdtryFCkqayW5VQ RbwtXte7QnHJZxGAZ6QJyw LWpacOWpJWPtfJxgz4jwH7 RscGFyXHBsYWluXGYxXGZz MjBcbGFuZzEwMzNcaGljaF efBBigWrEpOIUzTXknX5ru UiDzT6IdJXIxMiLkkPRmP1 ggVGhpcyByZXBvcnQgbWF5 FJluV2w9QHYxgsFpxBs5iw DmVgIiJUVgQSC4FBnhuQZs NMCdu6MxdcndsRArGv0muU DeQXPdxH8eEEWqXARmKEky FT8xjNy4NABDcCUvzOKbIx MFAYPoEC28pwEbNRFWqubz c9H6DFonWNXuz5CgjAMgZ9 apt4MrAQAky60dCF8lz1S5 d3laLBA5KY6oh5SnGLXahF NeyMXeVRWzq6Htmiiqg1Bq TXMqxkEmz4HmQXAyybTzuQ NzNSZykiQexa3lhhYgCCVw DLZpK4FtihvlkItwdqHhDB Fcmp6xzhTeBGP2MHVVJEEa TBEyu5BmjB1ntDEMPNE0hZ Qfvy0wsvJEuOQaXKSisj77 LXLzMI3yC9toNRVnNNWzal LjvVWgd0WwJEIssZS5iINy FS1TQwNJn15rJSMnPGRQdr QdUZHscPibtSR5cpS1eJ1h IChGREEpLlx+IFRoZSBGRE GaBX7ofbBew8HxmyIzxHnr SWIokDLef5SwhGUwk5VtjO jin8QzaAZjpWMuSV2vFOZx clxwYXIgVVRNQiBMYWJvcm U0a3VqLYJcTRTeWZF5fDwf ejf1LZOhaQ3oJNXuQ2nhsn zyXGfsQPAqb6MldR5wtLDF sVIri5KnxIRayMJSbAYkAN 1ueqJfSBuBYDdIPFL6dkLe CNIkt7FmEIqpD0jbD60riT cwgPc3yPX5VLW4mC2xTwa+ IFxwYXJccGFyIEFwcHJvcH PdFGJijYptrkWhU3WeeyQv fQ6kwUGnvlCmCE1oQV2mK8 B8hDWxQJDjywDvp5ncHPpa dmUgYmVlbiByZXZpZXdlZC Rsd5GmIEdzXVM8JJrdsdHf bmNsdWRpbmcgSCZFLCBTcG RmgQSuZCR1XRtksfDldoTi SX2hwN6xbGemzT7tpZOmoI U0otfvCAQeNVQaeEcgHHCa TB1baZsaeB8iLfHdMlLoEI ynTH1lTKDmG2hjkNEcEZHm KEIoW6wcDqKqgS1qiLxfWM xjZjJcZnMyMFxwYXJccGFy XHBsYWluXGYxXGZzMjBcbG FuZzEwMzNcaGljaFxmMVxk VjVgNYNfMTekQ0qjRmOrI0 PpFGQyOwLfbUMcD0kbXQzi GUQ9GPWbHZ3cwBQuBF99rN Klr8pdAIwuhSrisi8lB37g yWSbYNkmzRxjCXHhd90lv7 QuVGMfkqAuxn7uGQKtweN5 hM3pGEOqrZknTUKujXYaUN Fig0CzKBkpqBPiqbGgIRsu FAQxFGEtpNRafrS6vvHicm JtkeKvHNRsnBuuTOQxi2Wk TQVgSUyxn5Xhzu7kuTTmAP AsxxOUoAympENmkI0qO2Wg LKSpZOHjfk0hFMRiqP5uWN tux3NeudimVBNpZCLjLAYe kwWcci0vVOMttNYPIE5XZJ fopBEzz5FsyxCrW6yGGYF9 NUQwNjYwMjgxKSBleGNlcH AlGGQyyy18OAFjnZ1crLjx OWZbyI1wzG0eySqrxL6cCo CwHyGbKPwaEX0gPRKtH9nc bCKjHPXnASJcT4mkGcAvrJ 9jaFxmMVxjZjJcZnMyMFxw YXJ9fQ== Embedded Images (test code = [id number]) [facility] [id number] 19:23:05* Test Item Value Reference Range Interpretation Comme nts Case Report (test code = [id number]) Surgical Pathology ?Case: [id number] ? Authorizing Provider: ?Dominic Keita MD ? [...] HPylori ? Final Diagnosis (test code = [id number]) n9zidGVwKQBkq0vsOGUsaW FuZzEwMzNcZnRuYmpcdWMx DFdaceHyRCdzwIwiLYK8RJ ExKB0dtSanhHj6kPmqVMEb tzQ4vHCpCOmhq0sxYLO9y9 zaomwnBHAjDLssEl1zrURt fBrgXxEgBTNuKNw5fQ63XM SmoT5lhMCeLPl2WOAkkBRy mvDtFjSpMRBhlINvoXP3RM PgZQ8jrmmkTVviSVrpOZTy wwZ1QANtsOIyI2PuLMUwSK 4znlagSEC1PWxgLTJmUBM0 TwFzRQKnw6Sgnvi2KnMvvU FyZFxwbGFpblxmczIwXHBh ilWHAqBKQK9PRPOWHBXEF4 hDBGRLEM8JQQEEMwobtIUr HQAlVFAvRSCSHU4KPIWdO3 uGToDaME5MDOAnFTCslXYq XJHthqXUMbTHDK8JOR6IGA wgQklPUFNZOlxwYXIgICAg NDSmYKaKA6ZBBDZeEOQMS7 GAVTcFLZijEv9lJTTJQW9Q B0iDF5KQLTQGKK8ORUwqUQ PtREVuGCBkCR6RWPeqTJNY QU9LJFPDLHCLPVcHKXJPOS ZDFVlVRDBSR6UFTAeCOXJr fquoBSKjKf4qE5ALKMSWBF wgQklPUFNZOlxwYXIgICAg XAMcCNOQZ9GJFtKWYQ1TP9 1QIZRKJUVSNB1AHOBSNZsE BF9PNGYTTUZIGYSAZ4BpgL FyICAgICAgLSBOTyBFVklE KY2HZEECJoTBXDmSDOBrCB lTRUFTRVxwYXIgICAgICAt WZ5HSHtqPDYPPT7SJHFRZt dBTklTTVMgSURFTlRJRklF XDKLLEQCXD4KIx0UPMJPHb xwYXJccGFyfXtccnRmMVxz n3JdO2DmLiFwPElhoyLvMX QyGujoasmiKSRiPCW5jtEw YWUuUBshZFNeHPmuIo8lzH JzwDphRaZxYUWsu5adjlSH IOxsKjKyQ692OBRnNSbtx0 lod4JhOXQgeWXmm7S4SPJA aesaoRs9l0bxLbVaQgL8mQ MoEPpqE8nkxtEcvOZhA9Il cCFnlQl1zUcyK58lt9F4Li ziY9hoIAMaLIYmW5SlAR0j GCAuBxj8OPT4GUA5NMVeGK QgS4IpED7xTUAjbQYgNAw0 t9zvtOzdUPLgIZS2e8vrJX nungK5RO8ali7xsMx2c4os czEgRGVmYXVsdCBQYXJhZ3 QzuLoeVn3izFh9rEgnJlur KJP2Sej6NH0fbh76llu7oX isUKXddlioAgJ6IWpxAZIv lhxfWFn5CBtcYEIqrRH3LN XlfGWeJ9XzWSImUG0vksw0 TYB1BSygCDRpGjE8SWMcrN VnLJTymHtmNXvih301DDY2 OoIzUQ9cY0Thh0A7kZ5bkZ TdCEYwsWNiTbRxDJJnno2k bCMfVAuvi2PzCGY4hpY5eF PzoXGdGZQlGG44Gmjtk2Wx ZczlLBR7HYZwffCyn6Kyb9 vmEwZzjpMiU3siS6SxWWRi NEOgQAPjAqWkuyWuc4Snx4 OqdGRbzYr0u1puFIKyQHKf aMide4rtTJK7LEZbC9U2iF Iim1ppBGlaAJOizQR1euS7 WCXdaPUmI0KfjY2xGHQbXN 8pfxl6y9qsSOD1HHwaZFFw XnS6qcE7QLRujJMpXKPmnZ axGQbtv093KNG1DcQcGVPe c0YbC2FckBytJ20vdKmvO8 8iMUDyuMvzxE2qbHjwjS5l ZjBcZnMyNFxxbFxwbGFpbl xmMVxmczIwXGxhbmcxMDMz GZqjX5lfXmVeNVLhpSsiDA dou9DfYEGlUCGpZimimbWv XHBhciBJIGhhdmUgcGVyc2 9uYWxseSByZXZpZXdlZCBh iMled9YcK5gmIG4eD8NssK DauzAtwzEpEQhcXJVta3z9 cEHguTdnp1ZneKGeFO11ce QiKDLrTAP9NFFgc3hcNW98 lnkxEuIvaS95ndTwpaGrKZ Uun9avR9cjlSYme5Zjf8Na xtPsRUpzg5BjXA2kuHUyoh fjiDA0SOHjeEIgasMyjkI2 fBwtYQBhaX1yzH5dlPwluS 7uDbYtNpVgRLscPU9bWKCg Q3ypiAJeUJGxJOCkY8rmGy IdiX7mrHwaIgfjpuY8NSOf cn19 Clinical Information (test code = [id number]) Shivani Schuler is a 47 year old female with IDA1. Gastric polyp x 6 r/o adenoma2.Duodenal Bx, r/o Celiac disease 3. Gastric Bx r/o HPylori Gross Description (test code = [id number]) k9timQGzMWTetOVZFFR3PW VnAD2ikNhamZz1mIkcFAQy mxE5uEDySLaah4eePAI4k3 vwurYBMcaaCPPzZK0rWIcp CYVvFT4xBpQuPBEpFmSvCB BhcGVydzEyMjQwXHBhcGVy qHA5QHLjBM0mzuhbHHebIU itYDTyxbV2CVKgpONwF9Ga LCKtLV8ccyoxDEA9LGATCs zqLg4qhBZhvHpvOoLaUlJh YXJzZXQwXGZuaWwgQXJpYW b1qQ1NFhwtMVV2LPRXQmqd KtfmgSsnp5JnwRYqNXYoBF xcaWQgNTEwMDAgXFxkYiBP YlAcAnB1Qbi6QWP7HfZ3IN y8VXCFXJKfFdxdPBX6GiQ7 AZk4KLXdSS2bZGaeqBTnTI xiTzrpRSqeA550WVwtFEHl G8RhK6WhDDbwCdLdTDelRE PiEDZaYUzmPSKgW9IENWFu WHG9NyGvUHDcYOl3BMtgE7 DBWDDyFHLtDtB0TCVxXrX8 PMo2WFVJRt8jTJfxQfUjWS m5GRV6YMo0DwLdHHRqYaXc KXPaLEHeKQexbZGxHZ5bzI zeTZOrBJ3WDBWqYFnwOUYq DfEmY7UBZ4jFLY2uXMlatL JjaFxmczIyXHBhciANClxw IFLwTE7SZSWhZDcvNNh5dy UrRKReBeWbVRZnG76cx3DS s7CzZW8FISn7mcQszirzjN 4hFDTmrbNnRPuTxCPvtE5e osBISVniEGSwH1JarqGnEN gzEKBerk4wcGsxOKwuKqYj bGVkIHdpdGggdGhlIHBhdG zndaDoP0E4qlUvFA6kRGFW LHHzkI8yNDMqXADwq9EngX HfqSgjG8LjrWZbXyJis7x4 zYI3HPTtqcElBKAbzDOmHK Dimg8qLLhtNuPuA7I4CBVe MZUkp51czED1ucYpRrDqjF o8nRQtMLB5PC3rqDdiwxIs e1c6uP4vDLTfb7J1VZWwy6 H0CBMzopEegAFxcYVdHRHj DS2bhrAkIZ98DEVxPRroAG ojIOI6PNB8BUDihDZmk7ja taxgTv1nQWklQL8sRVbbAZ 78MTPuVKhePEOnR8MvB3H8 XThgAYGqHGApaZRyaQ0jmr TxyiMqpFn6EYNgHRG4yHIk wRrpZDSmMfgzpFQ9YPIpPx WvleInx3YdiTx6cJCwTQdw OQYjnE7uiD1mMVXcGYPidw BJTcalOQHgBIcmc5OjHHwx cGljWHNhMzAgDQpcZXBpY0 4wm0BRu9Oqi9hycDufx1Os dUKvTS3fdWViMS1Zf5iwQK RetPZjUSA2NRyrf8zpKObk TOK5MJRnLnPpMTSwUA8SEg FmIFjlGSf7YGxeVIu5HIk2 QI6RLuMqEAZgNii9DbT8Zj GxJOo2NUjlMJ1PKHC8MMBe CNHsKZxoQHE9ZDGjFRj1SM IgXFxzcyAzIFxcZmwgXFxu B19oqKJiOSfrWbPmYPnipQ ykKGWaVRD0RC7DZNYqBlQj S9QLE2kQPX5pWsgnvdXzXP KiusXMPkpxZXRwRA1WVPXg FVusVUu5fmGsSXOoQzXwKN ClZ44fv2WKy7LuXN6PUZn2 llHqbwuwxU8yWDYylkQvi7 IzMFxlcGljWHNiMzAgDQpT bNJzoP5waqSPOUkyXADcF3 HrbrFqOItfAHTrjz6rvOzl IGxhYmVsbGVkIHdpdGggdG ueDTGdhCwnpgEaD6N6mpMx WW8cVPYBUWQrrG2yYQVwGT PvJXSzIGBhlT9vJHP5w5Uq bcItVSUNKXNczFwoKN37fC BjZWxpYWMgZGlzZWFzZSBh daMlobMgu03gnvHrk6ApZF 3ldXlnUUiZQKgoLeLtYB2m UHEvcrJkw4SsTS8zNMKpvH ZqIZPsepynnJGkKVm9nHGi BTHvGzOjyCccw6QmKUWgJG qxDN62udUtCN6aDZbnSH9f XRyeMA7rXTGeJIMaEEFgEd AvyRPhLyYleUNeWwKpT45z RxETbZSkc9JpM8ucGW4ciA AdCpsfhESrUTBpqMrrt1Tq pLAyLQCxi5PnhQLoDMwwLM 3eTVD9Vy2njWZzGXYdmlN7 q9TeNHjaLZGdQzzfYJNfNE maw3FmULJpeDHJn1OqGZ3O XHBhciANClxzYTMwXGVwaW RSz7FyHTMBSkpalZjtQrAm aWAmNpJ1BXAtfDRrZLU9BN 9tyGihONZeWUb4UZrfCNRy X0GeV2JbYEgiNfXwSUutLC SoNUGhQIjwKYWxD8MCLYUs GTC8UeQoMYLtBHs7XTkwV9 VEWALxRXYbTbW5XCL9QtN2 BXg1IEUAMd2gAFucZdTmTH CjJaL7NJp6VePbKKUgIbGl EGFfBHLgVLkjoESvQD7vsM ufKHPuHCKyFHS8ZJTfzKJF j1RfNHAhWXdoTxAjUAJYEY SVTK5YPdKGYRCnCnElpIOh PH7SGSBjvsVvYFwdjDqomR 4hhKItM1uoUtQqQslpySru TmVzdERvYzEgDQpcbHRycG FyXGxpbjBccmluMFxzYjMw TCFktBLWm9DdNMXEWuFxHC NpbWVuIEMgaXMgcmVjZWl2 ZAJowF0fEq2vtUMzxT0llM WhWLqiIHXxt5l5tAM2gIPy tAX4eKPgrJtqJkJeLD9msK BeWENJWX84uJAzveFjNNWv hB9qAGYnAWDeAHG9npiiSV FAWZU0cDBup8M2HGyiORV1 oV9ieDhuVdGiF1H2JWPgMJ Hnn44tgYF8dmKbFqFoXUGg ar0jjY4yQKkxjiCsxKidef Aor5T5CKTqe9Q4QRItxjGb aLEgpOTiXAUeGcX7HNLeLh H4SPSxCZIyiVKdSWZwHJ4f VGhlIHNwZWNpbWVuIGlzIG IofSAbosVoWMDqfq33T7hh IOOfsB2oh4mzObLpRTZyRT FddMPccCU4CKKsnL8htS92 fxJakjVKZB0uhDWuUO4TLO NiMFxlcGljWHNiMCANClxw LZXiTQzbx3VjWCqtzCziDP AiDdWiPEoFwTnpTAZMO5wg eSZqRLyfTFYUYLqDF9QUYK 4IRIZymWFJTFA2MC9bBTge JJOdK7DtI8TwzjX8g1sybM ohh6HelURjEL6roKSgTJ5Y XHBhcmQgDQp9 Disclaimer (test code = [id number]) u7lxyDMkXVHwk2rlRZDskB FuZzEwMzNcZnRuYmpcdWMx IArmtqViMWrjg7YlD8JqRd AwMFxhbnNpXGRlZmxhbmcx GNYvSIN8fdUfTCDhKBmmMH IgBJnsQy8gfVCibSubLkOu EHCik8anlqXZZXwtPqZxZ0 41TSHoBBvgc9mgp3SfSZWd oQGhl5Z7TLCLcxpgiHh7lG exZ25qp8U5FavyZ6znASHd YINwR9BbDR0iWSOgTfq2HF T3YPC5DQJtEBWoM4NbWN4r IYPvoCFhZNu8a2apwAviXH GlYWP5c9glPSqoyjMvOB2a ic0hqBf6s1lfhfQxZFKoJE JmdKWNGHOlV2DddSitZt5z uOn6cAycPivcEQB1Ywj3DF 8pgo07ucq7mYgsYMCuukns JdE2GGpgTCOzztryNSw3CN elDHHytDS9NUNfpPEmB7Rs IHJpLM9otyw4UJH4MHwrQI JxEzA8YXBxtGJoMNXefQvi UTojn834DPX3ByMjFG7dZ6 Pqv8G8kT5myYMcWDAdbVXc NoNzUESwmj0cbJVaHFptn7 GtBFK9ahN2gEIqoOFtUOVf NG91Jpwkf6UwJsdhg9HnU9 7ksCR4NMrrq9sgVU0qUcB3 oaQrBBfub0obxP7vOeV0SO bvCE8hJR2eITTqtP2fcdnu XHBnYnJkcmhlYWRccGdicm YfVw1csSrvJRY0BHwnZ1mz wZ0eVnI9YOuqN5jnzN7dHJ w7FCcdvHS1FRCwaY1xHZ4s rfpjs0xhUSjpQPahECZnfq I7ndJ9GBQkdNFoS8PtiU6r IQWnJJ8cteqxf2cgDIL5LX ryWVLjXME1FgQkZIAtq2Bp tfe0JjDyf3DodJVxZKyrG3 2ey785UNUkpuTnW2gmeLDg vnpuoLKfzyciKYixijP6MJ XwvaPqb2OjFBCgLVO4AVwi LVifdDEgCXGsnGiei6vdZ5 RscGFyXHBsYWluXGYxXGZz MjBcbGFuZzEwMzNcaGljaF paNMybJrSeSTGuRVdiW2oz MfPzF3BxIOUzRlRyqJZnY1 ggVGhpcyByZXBvcnQgbWF5 LHiwI3n4BHLzvjPkeTm6eg RcOzUnJHRhKCN1OXmaiUGl PLHkb2KjjvbfxWNaOn3sbH MqLIUhdJ9zDYIuQCXvJRem RI5tqTk5WAJSaPNigIFqKt ZQJLVxEH10qoJyOJRVyjqq r5T5YDkmREZeo4NmkEWqK4 sik7MpTFQgr96xNJ5bc8B6 i5ucYYL9VU0lz9CoPDXioN TbeRUxCFOus3Ytzmkqw0Of XVWpbpUqa7OzZYZookJnkJ EuUMUheiOddx0bciKsMEVr IUPfB6CyrfdopUdqizJxAD Fgjn3aldUfCTJ3OCUPMVBk UDZsr1KsaP9jwUCUGYR5tZ Tnys9iwtITcHLeWONhzw32 FNDrPT6uB8voYFSeAOMhck OteEMng1FqNOMkvMW2fSAv PO3OBcRUg30iCHUfKVFQkb JcRGUmiMwpbOE4ydE5zT5g IChGREEpLlx+IFRoZSBGRE UhYX9cicXlw1RoanJjrRvj OYOuuAEvb9MkmTPuc5BjeJ mxr9YjnCZxoYUiJM9qYTHo clxwYXIgVVRNQiBMYWJvcm C9y5BpRRZrQMBcZJE6wMrl huf1KIMqjV9cBXQxE2jrae bdMRjhKOPqk7KhjT7ftKWQ oLCoh4VltYYvaJCRxQEtUO 3zzsItWKuVWQePMOD5mvVz RGNbq8XsQHalI5gyF01xiZ iyhYz5dQW0UOY3iN8lBrc+ IFxwYXJccGFyIEFwcHJvcH ZeXHSnaTahgwCtY1VhvsRo gD1laCIekbPaXB2qGQ7jN5 F2oUCoYYXdndSfs7kqTJwl dmUgYmVlbiByZXZpZXdlZC Tja3EsYDwoBEB3VTffjzDy bmNsdWRpbmcgSCZFLCBTcG WkcHGzHMZ6VNkftgAxxuOb ZS7wzI9yjUyxqP7reSSivM N9jrziAIDuHFDhuGeiMACs QO3xnIgqbD8xKxEjHsHbIW pbML6eYUQkG6bcaRHoAWQb IEJjB6wyEzIpyQ8fhTinPX xjZjJcZnMyMFxwYXJccGFy XHBsYWluXGYxXGZzMjBcbG FuZzEwMzNcaGljaFxmMVxk QdVlYBDjEOeeM1vxGsZgG0 RfFAHdDjEskWAvS2cxZGob FXP0TDEzWM6udFJgOW39dO Lpi1beQJzjuSjjjb9dO89e iRFjPLjldGtaWLKzd67jl1 CfGPGslsNaxj0yOEXgfjG5 nF4vYCSqqGmzAOMfvXRvAG Pzw5LoLGmyrYFnlwQnCGmd GGMqVVGphPHwugZ4vlIjzt NdaaFhQUAxcScqZDJkl3Fs YUQgSSfsm0Tvpd7pcHJuGR ZpdxCXeCfkqRLmhF5nM5Ct NSVlKNQndy1oVNTblD1lHW jop6GisdqwVOTqYOHpLDGg crFhgz2nHCGvjVGJLH9HNS unoWUqf7GcwxYlO8rPMGR8 NUQwNjYwMjgxKSBleGNlcH HtSJFoaj50KGUfbA8huGpx XOPfcR9ulO3aoQztnW2aRf LwPeZwLHgsEN1oUQMrU1xg gFYmLOZsTFGbI4ipHhDrpG 9jaFxmMVxjZjJcZnMyMFxw YXJ9fQ== Embedded Images (test code = [id number]) [facility] [id number] 19:23:05* Test Item Value Reference Range Interpretation Comme nts Case Report (test code = [id number]) Surgical Pathology ?Case: [id number] ? Authorizing Provider: ?Dominic Keita MD ? [...] HPylori ? Final Diagnosis (test code = [id number]) s9ncaRPcAWCsl8odZUGldM FuZzEwMzNcZnRuYmpcdWMx SEslhmPzHZmblEsdNCR6XW UuUE5gcXpqfNs0eMzmONOt rpZ9vOLmKZgeb5wyHWJ1f3 vpctboTQWsFRkqYx5rkIMs rTgkFoKkDUQoSXt3dM80VJ MzgG8rpDOdJFe7ULFoiIPb oeNxJoLnSHWlxKCirVO3QR AtBR7kbkegWHtdTBerKSLl hxA1XJKwgZZrX3IdEGGgWP 3pyfaiQUV4TGtkTSJmIMK0 OwNiMBOzv1Ankjf9KpXenN FyZFxwbGFpblxmczIwXHBh jmMHSsPHIQ5FQDTKUYAFC7 dDXSYGUG4DHVWOZkfssOZy NCWvOSBjYQMRKP4RPRCwV0 hYRgQtLN1VKORdBTNnbBOr IPOyzfNJIgIXEW8UHK1DBJ wgQklPUFNZOlxwYXIgICAg GLLgRCpGM7JABEHkAXQLX9 QIUVhAYWgyTt1kOGETMJ5L X9nOA2KHGBVPJH5AQRamXK HuFCUdCCAlPI4NKYerHYYX DE0JOIWOKTZYLEuYMRJYOL MEXMeJNXQTB9JPWNiDHOHf dxqrFNWcWh9xM2DDSKWXQA wgQklPUFNZOlxwYXIgICAg RIEzJUDRC7ALXfARPZ2XU7 2LKSBOTMQNXX9BTISWWHbK LL8ZAGGHGICYCTXCM1SrlZ FyICAgICAgLSBOTyBFVklE KI6ZPJIMIsMHJZbYLJQuTV lTRUFTRVxwYXIgICAgICAt NJ8GQBzcMGESQL9XIMGGOw dBTklTTVMgSURFTlRJRklF VGLAJBJTAK6VEb8MLPTUQe xwYXJccGFyfXtccnRmMVxz n2XxV1NgQzYfPDkhlzJmLL GlDnphxajtHEQmPIB4hcFj RCBnAXrsKDKzCPtrEb6clL RgxDgvBjImAXKwc7mzzaZS CFobMeSeF110KHKxLKttt3 dkv4OjDEBvpJVfz8A3CICQ bgwksPi1m9yvDePqAkO0yS WgWRbgD6ruvxZyuEGaM0Ov cTGidTk3zMtoY97is3B1Oi wfY8biEHYqHNUgO8WkXG8k AIKnUrq7JQJ7SQO9PYTwFQ ZaW8WeJA9bVOQobQYbUXm0 h4mcbWxlPOPpUTA9d2ghNG hwwzQ9CG2yjf4ijSm4a2nt czEgRGVmYXVsdCBQYXJhZ3 RtvYqmCj9tgPu4mSbdJbzt LNM9Suf5EU9ywx37rzy1rN jcBYQufvmgCjS0IQxaNZVa hzvsMVp5YDvcWPMavPX5PG WnhPKnJ5IbAJZkJJ7wmky6 ADC0AAgnJQSoFxM5CAUioC FnQIStbPpnMYjgn368LJN5 XpVyVR7uD3Rim5D2iL2goP KvTUXvsCRzJjIwORVksl8x bZGtIXttl6GpYHR1ybZ2sQ QobOWiEIDlQU98Bzaty5Hi KqmpMCX7PFSlvdIhu3Hau6 yxOxVrolLoA8etS3WiZRKh LUByOKGdOfDwamPni6Nsa8 WsyCClaCr6c5lsUBVqVEOg bUxvu4gpWIA2NMAiI2W9rP Oqd6chLWjeFLYseCY2zqO0 ASRklCWuV8WujH1rXOGgIN 5zmyt2f7ygVAP4ZRvaKZUc XfU9ajP0KSSjyVEsKOJjeE gzNOynb131QJY5WaJhDDWu z1IaL1FjvHluI31joBdhI9 4cUSRytRwgfK6mzHfqoF8t ZjBcZnMyNFxxbFxwbGFpbl xmMVxmczIwXGxhbmcxMDMz USkcT9uxHmJwIYAtbSsxEM cer9ByBLXaIPPqMkgostEv XHBhciBJIGhhdmUgcGVyc2 9uYWxseSByZXZpZXdlZCBh gUnpd9VqZ4jaLY4jK7SfdY GwvdWdgfTwZNfyHLLvn3u0 tGFnwGlje0OtoQNuPH19cv HlGSNcWEA7POPys1hmFN01 nsukFvOjsO27mxKmhoRbOD Mwo6twZ5cvoPOgr8Xpu5Ew bgOiHVosg8YiHI9csZOoxn vyhHI7TRDspSEwkpZipvK9 xBncMKPemH9flR9toLqakW 4gScUnApEpIIgqST8wCYZk F5epiVPySGZcWVKtC6ijCc TlsX8iaHxgCrvnooF5HFWg cn19 Clinical Information (test code = [id number]) Shivani Schuler is a 47 year old female with IDA1. Gastric polyp x 6 r/o adenoma2.Duodenal Bx, r/o Celiac disease 3. Gastric Bx r/o HPylori Gross Description (test code = [id number]) x4ludFVqZVIajDIFZLR0JC WpSD8ppCrdfJz0fWrqLGNv keE0yJTsYQjps7nrTBL0s8 gzaxIRZcxmQAKkHB8nOTzp EKPaRR8bZbNgBGDfOiCoEC BhcGVydzEyMjQwXHBhcGVy nTI7XRCmAM4jgwppLFepPE uwLUFloiI6AOCkpCBfV4Ub GZZqDL1lmgdeLXJ2MJJXKg rzEn9mrJRkvAfrUeUvTgWr YXJzZXQwXGZuaWwgQXJpYW d8nT1ARvzqXGY6TRDFJphm OzemiFtjg4OpeGWkRCEhVM xcaWQgNTEwMDAgXFxkYiBP KaIlLpS8Qoq3LXJ1ChY3YJ z3SLKNEVRqFgcvRVU9MbR5 NLw5MJUzNC0mGVagdGZyQS pfLepnVRocR068LLfaCAJx F8IfN1AlZNguOlFbTOmjUS UqVRXwQCgmTSAbB7URMAWb TAU2ZlLkEGCgXHl4YQwvB8 SJIQEgMMMxEdF0IXXiLyN8 UBp8CDUCUr6mPUsqAaXjCG w6EKY1XRh0SlZuJMCzNoCw LGBhVOJaBLgrdKNdDG1hlQ tyCZKwVO1DPIDcOAdmUJGi UgYkS6FKW8rBJD0vSWhekU JjaFxmczIyXHBhciANClxw MPUvPF0BIEFwOWqtGIz5wl YwDNEiDbTfMASdF70um0TT x9RyNW4RBPt0pyQumjkpoS 9iSIZsfbBwNPnRoWRcyP4w bfVABSwzQYYaJ7JyyiAjTA ssDMWqyh5yrQerCQruMnOi bGVkIHdpdGggdGhlIHBhdG qjxgWyI9U9aiNzMM8zGETH RACpcX7fGSQqJJEot6KgeV LbrEadY2PpzSMyYtHbg5f3 tIN8SGMnmeBjNIZzgSLfEO Xycd0mNFlcAdGuZ9R0JKUx SDKfk99wkYP4nxYuXcCbdZ t0yNRuGFN1UU5irGxrcsSa g2j3oV2tMJIce4Q2MJGgx5 R0MFBkpmZzdWJoaYTnEJBl PV6lzfYjPI37AEAlJByoDZ rrXFB3XHZ0JEIpkYCei8kg najzWz9pSLcuVL5iNBqhYP 61NAOgXSznAACgN6CsE9N3 IGjqVHMpPAKngQIseP5rjs QmxlAlgYo6GOSjJSK5wZGa qNpqFIJdLglcpDQ3IBScMe YvsaSfr4VebWv5bPLyWLcr BHAcaV3uhY0iYDIfTUMbjw IHGygtQXZcZEinr4UpURkd cGljWHNhMzAgDQpcZXBpY0 6xy6YTk4Tgm3gzqPogx3Ab lJVsWV0arTBbVR2Be2emZI KbnBFrTPT7VGahr7hrAFsb OME9WOErZnVhGSFxLE7TLb HtLUimDZm5PNygETp0MGc4 SR6TMtNnHNMyGsz2AfA6Tb ZwFAy0CDlhFL2XWCP9RMRx HXMyKQkiRBC1IXEdTVk5OR IgXFxzcyAzIFxcZmwgXFxu L50qrBUoYCbdCrSkKXyivC mzDYDkKLC3BI7SFJIyAyAe S4GVT0bDMS9nViswphViIH EfwyNSFpbaECIqCJ6KJQDy UMdfAQf0bzIgPLToLsTwKQ EuR98bs5SDj3LhUX3IXBf6 dtCztookzW3zFBAqdbKxp8 IzMFxlcGljWHNiMzAgDQpT mPPjkD9ameDFNZfqYEGkM8 PpqlKdHChgLIObwm4yrSys IGxhYmVsbGVkIHdpdGggdG ooXGSruWptgnSrR9I7egGd DQ3pFSRLOREmmI6iXTEjTO YwYCGkCMWijT6hUVZ3i1Vf xlOqQVZBYGKflRzmQF21xM BjZWxpYWMgZGlzZWFzZSBh cnBvxbRgs70btdOsf1CzUN 1loNaoUOaNVKasCoEzTO4r BTYgcbXxh6XtHE5uINZbeG BtCZFlksxccTVeHBf8kTIs VZFfVoJvwTwys3UzHFPtUO hgPM22uvOfLC1qGPlqVH9h BVecAH1vOSFrCKWoMUUnAd IwtETjEsEwsURiBwQmS52y VzCTwAKio3JkL6lcNC3vqA MgXvbrzSPjVASmzFpqz3Jj sPNaQJQvr9AmnCGeUMeqJJ 6ePUA8Su3euOYoXJYlrwW2 h8MxSNagRCVaQnpsLGBgKF mca6JbYBGqkIMFu7CrFQ1P XHBhciANClxzYTMwXGVwaW DDy9PpGAUFMuvenJmgCvIi jEAlAtS1THJueWFiQFQ0HL 3nfJueSMQaWZb5FSaxFQWe T9GxY6UbJNifDjWyGZovTZ XhLEApTAauDOFbB5ARYHSo DAQ4SqQxQJDxUSc8NYofJ9 DRPPFiZVWbReZ7ZNC0GbC9 OSb6MNQWFu5cNLsmMyWjNT FyCvJ8ERc1FsEnCKYeIuUd ZAOhNJZnBAldtTWtZL7onQ nzMWJmTSWhSNC0AQNlcSIZ b6MyNOIbIUilTdPuHJMVXY DBWB6JWiQDEBWzDxUemGZo KR7VCIIpfmDeXFirwUxtoA 4adZYcE4dtQiAjVzgurUni TmVzdERvYzEgDQpcbHRycG FyXGxpbjBccmluMFxzYjMw LDDbvIVMh7EyPVRWTuKlLS NpbWVuIEMgaXMgcmVjZWl2 MTIymS2mOe3qtLBwfP0jpH FcOOorWKKyu2o5qNS5wCIj tLT8kIGafWovEfFjRE4ppL WcEVIOTV48oPShhcTuALIz gR9mIKNaAZHtIXK8fmgaDG HWDHA1dJVto8F2DTywEOS5 xJ5jxEuqVsDxC0W8VYTbWP Ibo18qkZS0eyQdCuZrOQWu dr6ubM5pCDhtpzXjxZebub Vbz9O2GXMup1Z2WYAurgBp kPAljNTeYZBqOeG9JMTvUu L1CASiVCTlnRZvHVSlAY8e VGhlIHNwZWNpbWVuIGlzIG NzsAEcpdJoABPbuu49W5br QQRxkK1gz5ooOlCnJRWpSU OqlKBteTM2KXPvkE4vjU70 wqYjeqHSEK8bvHMtMC4TSA NiMFxlcGljWHNiMCANClxw PPQhZUwzs5DrSChlpFakNN MkWtJkINvZrGpzCUMAA2uo hCWcYBzdNFPQOWtBR3TLPE 8VPYCrfYHNECZ5GD1lPOol SEWhF1BzA7JcanD9z1iwhN irj6HmrQIiPD0baZDnOE1D XHBhcmQgDQp9 Disclaimer (test code = [id number]) n8eiiGUeYOMaf6rzNPZeyV FuZzEwMzNcZnRuYmpcdWMx QCxydnWpEGdbs1ClM8NyPn AwMFxhbnNpXGRlZmxhbmcx UHSaNJR8mnWkTZHvQNkqIE VjQLknNw2uvYSatTwzWgSt QRGgz7bhxaKCNMpyDaCjP5 19SKAtCCrby0owv8OyPYQf dOPau8X8CXOYwfdsuYw3wG kkP08uw8W3QneoO1imNSZe HSGjQ5KdLY5dACNcDde2VX L6MBG5IQWjPDFsY3RqZO9r KLJkvWQpWNl0m8qkaAiaGH HmUPL8u6tkSAdyjzEnHT9s iv8eiHl5x0mykiPvBRVgEL ZxbITZYQCtL5WqrVnoOc3v yVr3eGxvDlltIFE8Tbu8CR 0ots09bfy4hKguYMTbrchr NrX3UFysXMRvybhyIMz5DI mtQQYpwUV5YDQlxADdZ8Ly CSHjVT8cynt8ODO8WZqaGZ EiFgD1UVKgcSXcLJYidYfe EHjrd442QKR6OoEvMU0cU7 Bgq7X5tC7cpNFcXVXujOBp AdIgLZIkrc6thAOtORrzt6 GiOPQ3idF3dRCkeMLbHNPb VX98Kycti9KjCupln5XqY8 8zxNX9KQves5tbEI0zKhS4 eoHdZCvvb9ugbG3iAdH1CR vxOQ4dWP7yXTSdvD2kbfzc XHBnYnJkcmhlYWRccGdicm WfFy3ikVtfTAV2AZwgT8xs fW7dGoU0QQqbJ4pwmK2zPC e8LTibqYC8DKPquU7vOK2k sbawk2avSOkjHAvxGUFedw Y4awC1PPCkiPJrB1OrxO8x JWTaXJ0exttui9uxPZN3BZ qkDZUiJDN5XnRaUTDxb3Yz cir8FcYbb3NgdHBySOxmS3 1dq930UQUnkoUhZ6ivfKUh zwumkQLbfrvaAGwzzgX7ZQ XedaKlg3HxXWSrFAS4NOvf ASgfnROiHNRmcTlod3byF8 RscGFyXHBsYWluXGYxXGZz MjBcbGFuZzEwMzNcaGljaF fhCOahPwLuLOZzRBtoP2qd NxCdF6XyUYFmCsOmrFGlR0 ggVGhpcyByZXBvcnQgbWF5 GYjgD4c1YTCrrbPyxZu7hs CtDoTiAUPpYOH5WJnalYQq NOEgi9QyjxdykPFwKc9skA EkVYUdqF2yGAUhPOUfYQmn IC6keTt2ZPGEaIDhrFMhDv ZWIKCyOV95gzYyTXMZwqbn f0K5CHvfEKSri5RjhULhK4 gcx9SzSLHzr54qGW3ss3U1 d3hvGAF2TN8oj1HnTNBofP RubBFnJLEuf2Fikyzzv8Bh ZREgfqXua8HuRLPwggJchD LfLKPjtqDqjv3kyjHtJUEc NHEuT8XkfwxzcVzvkpXjBD Nkmi3ldlPpPNL0OMYQRUZv FSGch1MgyZ8ojENDBWU8jF Kfvc2hreHBwTMdDIBass26 ATXpYQ6pJ4unERThCIYzas GojNWli1NeNOHgjHF5cIRm ZB1KBrJVv10gEHVeDSLNcj QhKIKsbHdrnSF1nfG9fO5i IChGREEpLlx+IFRoZSBGRE ZuOS0zkwXge8QngpLnmKfi RZYjcTRel5XxdHLqm3CtjT xhk1AdyBZdcTRaWQ8sZQEn clxwYXIgVVRNQiBMYWJvcm J3k7VjRQRpOVAlFYF9mGei gvl1JOJxaG3jBGDcG2imag vyOLiuDYCrm3ZblE3ndYYF uDVxy4MbtJUwnRJZcJXfMR 6tioBdMYoZHFrZQJQ7twWt DSKlo1GcVIckQ4mkV22sbV kojJk3qFW7SPN9sO8nWol+ IFxwYXJccGFyIEFwcHJvcH ObGNJnjUlvkwWnY2UygdJg eW9idONpeiUtHO2aXL6tJ6 B1lLSfTDXbikFxa8kjOLah dmUgYmVlbiByZXZpZXdlZC Wnd8ZnESczNQP8OVwujnLi bmNsdWRpbmcgSCZFLCBTcG CbrYAqWNM2VWlwvaSwmwUv WK3vjF7szNllbQ6euNEavP T8satdWCMjTXDhtSooKFOi LX1lhYcbuH2iGkXbCqIxCM sbNI5ySWFqG6eieIPiDMIv EBJeS9kjWwCrhH7itLnjWQ xjZjJcZnMyMFxwYXJccGFy XHBsYWluXGYxXGZzMjBcbG FuZzEwMzNcaGljaFxmMVxk XuXvKGHuMGtrI9faEzTpI3 CtXNDwTrCohZMfC1ckNDdp CXB2BDIuQL2gfJBkWO98aW Lch5arDKafnVuhee4qM03n jALxLFcmdZfkNVYft82oj5 UmVDVfgwZurc0mRQHhsyQ4 nY4qGXAydRozQOJesOFsEK Fcz8LmWFczwKVgdiFeOBuw RDKzDGStrIAknuG6mfJary FfutVjATGlyBgdLGFtt2Rx TXDyKUzko1Rqqz7pyVOkFH JmziBFbZbxeWPqzF6tE2Ju HMCzXNQerw2oGBLpcI4jSW cru7BvxjpsSDRcFCEhRVZi ebMdgw0uEXMxyBDVLU8YCB dxoYGjo5PkanMtS2hJKWC2 NUQwNjYwMjgxKSBleGNlcH MmUPPpkq65KLZrcY2gmWrz TXYmwT2xvY4ksYygnB8eKt BeToUmGHuuFK9bSQJwR4kl yGGtMVVaIMOqE7ugWjWzcY 9jaFxmMVxjZjJcZnMyMFxw YXJ9fQ== Embedded Images (test code = [id number]) [id number] 19:23:05* Test Item Value Reference Range Interpretation Comme nts Case Report (test code = [id number]) Surgical Pathology ?Case: [id number] ? Authorizing Provider: ?Dominic Keita MD ? [...] HPylori ? Final Diagnosis (test code = [id number]) b9vajVKbIAWpb7kySOXymU FuZzEwMzNcZnRuYmpcdWMx SEmzlhHzOBakkZzfJVB7DV MzLG7woZmnzJi7cTvqJJZd zyN9uYThRDnwx4biVKN6g3 nllticBGRbIIxzRq6emDMy pMwbQsDxHUKfMOo0wJ98TQ AbfU4hyCMwGJv2BGNviOCg iiUgXtUsMBDcnUXpfFX1CD DbSE8ejsqaQYqaDMcmAMGu sbP4BRBcrNUwK4JhUVJsLI 8ortfsWKR8EMiuZCUaJDG3 BnVdOJXtt7Efwjw9EzTwsA FyZFxwbGFpblxmczIwXHBh ygPDEvKAPI4FSZSZCUAST4 jPWPHFWS0EIRLNDbvwpGFl NATfHGUrEKMCLU0VHQYfT1 qWFiZuJJ1TGPPxVYAccLDz GHOdbiAZOdDFIJ1PTC5YWX wgQklPUFNZOlxwYXIgICAg QYIsKXtNS9UWGJQfSUAYB3 EQEGeLGDpaXi4gFTVKXN9Q W1cQW9NZDBYYUA8IWOqtLK PwNMLqWQBwSL0RGIqgGXWR IL7UFUMYGVYJOLzESUKCKR YKIUnTVYIDV5SEOOcOZYTw jlifNJTyJj1hW5EISUUENB wgQklPUFNZOlxwYXIgICAg HENkLKLAF2PCAoXRLP6ZC6 4XMGEGCPKRMF1NHXTCHNeQ MU9NZYEOEFOFYPVPQ6MswJ FyICAgICAgLSBOTyBFVklE RK0FYZECAaDCGIoYYIOtCJ lTRUFTRVxwYXIgICAgICAt JN2ZEIahXPLFHX8ZRGWARi dBTklTTVMgSURFTlRJRklF USJWWCRMCX4FUg7OCPKCMj xwYXJccGFyfXtccnRmMVxz v0PlN0JyLsHlNFvcvmDsFH ZnLvhovcduHZAeZXA1ivPa DVPnMIqwGZMdZKbeMc6pjO AeeObyJaDyCGEgb8esgpHA MTqnKlGeJ354GABcSBgkw9 orf2TuDFFuxKMhn9G5JAGQ ufggfFe1v0bpMzDdYlH2cF BjIYpbD9nzfnOjqLKpJ5Ad wUTncHe5eKteG10au4S9Ls caS2roECYcBMTfH5VuPN3o LQYaMzm5BVY9PHU2HMSyTN BjW2FdAB4bTEToaQHiVHx0 a2jqsZcfEMLuKUD8q6ktDJ atbsL1OH3fby2xlPg6g4wu czEgRGVmYXVsdCBQYXJhZ3 CgyTncEe0ohYg5eVvwZgwv IEA2Dbm3AM8wrh03rud2jS ovQAOxhpinKdA2SQadQNVn igiwPEa1GEnfPJNeqXY6KG RuhOYhK4LaKPNvNN7mpuq5 AGZ6RPmkQXAwMtP5TKUwvY NxQFAdkYjvFOold967ZPJ7 OoYsQE9eW7Zbj7P0nC7psN ElNYOusKHbVqRxEXUuxc4b zKKhXCtif3MtKFI6biC7uY LaaFKhLBWlHQ28Laqkv5Tl NkpjAQT3RTTzqjApz3Bkm7 gePmCvepWgO4heP5SxUOOx RHDyLWUkErYkkfSrz2Ogt3 UksRWbmZp0d6vqLIWcUSVq sMfzz5iuUYM4JXXtG4W3fY Cmc6bfVAwhUMUmfBN7ewE0 OEAerOUgC2EyhE7vXLLrKT 4vrrb5b0jgQNK1BUkaPTCa ZhI0axJ2OZEbrRFpTDAiyD dyMCsws412SLO0RuFrAMSy m0DyC1RerCqxQ95nxOroA1 4gQOOobRvhlC5exTmbjM8w ZjBcZnMyNFxxbFxwbGFpbl xmMVxmczIwXGxhbmcxMDMz KPuoT5htBwBcWCCynYkzDX etm8RvKUJnMUZcRsdrshFd XHBhciBJIGhhdmUgcGVyc2 9uYWxseSByZXZpZXdlZCBh rYnku1AvS6mtUA1yX8YppI YsqtJwmeHwXIqvKZKeq7r5 nRFwtYwwu8NtpCXcWA76yw NfCCKeIGW3HBXxb2yvHW43 ulpvCsMbhD94ggXzfpYhVN Gbo2qqF4yibMPty5Sua0Af heBfOWzcm1LdFK5ibNQycb eweOO1PUSgkZKrdxDzefL3 vHqnICUhrQ6nuI2dgJwygG 4iMgMhVqKlLUwfHA8bUXQh U9gstOEkWQEwBSQqK0nnZx GgoR5ktQmwXomhrcF1LPYk cn19 Clinical Information (test code = [id number]) Shivani Schuler is a 47 year old female with IDA1. Gastric polyp x 6 r/o adenoma2.Duodenal Bx, r/o Celiac disease 3. Gastric Bx r/o HPylori Gross Description (test code = [id number]) x6sdxONkGSGsrEXPASO7PX LrLS8oeOhufLf9jBwpUGXu vqI8aBFfKRrpl0xgKVL4t4 fmsrLPCmnkXZHzLR9gVKro FDFbXT4sYeGiCMFvFdWiCP BhcGVydzEyMjQwXHBhcGVy vSH7ICXzOC2qbimaJKftPH zhYZFyjxM6DOAtvPYsF0Gp CAUsXR2udkkcGAF5ZNEBWw qlSz9bcXHcpWevAvKeKeCy YXJzZXQwXGZuaWwgQXJpYW w7sJ3WGcfkIAQ3COHJIzxb ZnbevKleg2WhlTQrVSZvUS xcaWQgNTEwMDAgXFxkYiBP ByDdAcA2Wqp6DVU5VxQ3FQ t6BPXRJCUyEbvlOFW4YuY4 UTg0NXHwXV5zUKaixULnSU rpZwtdCDebE657PXjmTYUh A5EqH1TdHLakBdXzDQsjRH DgISQdTBtmYLVmK0KKOWNo NNN6JeEdSHGmCMf2MYfkX4 TKMZUlZYQyZgU8FLAqPmC6 WDv3TPJJKd3bMSqnLzNgLV q9ACH8GGz3DtXeLLKnWhLb KCOwGPGoCAjkrOShSO9tfO grVTOhZY7EOVZwWGyvOFVv OqWyK3XJT0ePUH9zOHsxnX JjaFxmczIyXHBhciANClxw XLUgRW0XLAXgGUxtOWn0uo QsTXPmZqSvSBOyA29lt2HI s0WiRW4ZBWz8snQlvmuuvR 0yAWKoysMwNOuBxKPprM3i buJTZJusVVZdX4OgwiPjFO uxIJPlfl6rrAfvJWwqWgJp bGVkIHdpdGggdGhlIHBhdG gtgpYwL9B2oaQaKH7vEYKW MGAhzI5hQKLfTNSxe1EkcB NufNtnG8FmuEKsCgMju3f3 pRH2SOUyqwCtREQagPHyIK Kbey0lYIwlMrIjY1L8MPXe NXPww86dtJW3blOmIeZimG t7zNShDAZ7QG0unDouibHv a6k3qT8nWCAzy1A4XZUlx0 J6AHSofmYdyOPswGTdJFFr QA5xgpVxYY77DWCbHEoaFZ miTOI3RDJ2QUQfrJXcm2pf gimqRl0oMMtjIB2tDCxxQG 89HTNgLNtoAMNnX6AkW8G2 BTbzMIGjZVPsiMDnuF2ogv OakdMmtQi2GVYtDRQ0sTCo tSmjRTUqLakijCB5WKKzVw YswjHdo8EjyJm9qSNxAYod YUDczQ6roO5qWXQoTPLgei XEOqgmODYaHCnri1MvDJfn cGljWHNhMzAgDQpcZXBpY0 3iz8XJj8Yqd6xxlPnjk3Xq tCHbWD9dnKAvEB9Ju0iyFH MamSKyVCR2VHoyl3wiLUid YZZ7NCYmCnXwJAHcCK3FPw LfCOvzYDc9YJiwAMl2WMs8 TM8GWcMiGRTfHpm3CbV9Li MxWYx7LNsoGL6WZXT9IPPd PERkPKzkOCB9CGWoIAi6AN IgXFxzcyAzIFxcZmwgXFxu L92nyFMxNWdkMfVoKOawqP xvWOJoAEP5PO4CASUxDqGk D2TME4yQAK3bHyfsjtGfBX AawwRNSediPGJfEG3FLRYu CGsfVPa8hwQiINMhJoHdXF EoM99we0TFc5UbLY6HCUe3 baFarcnohS6mRNThluZro2 IzMFxlcGljWHNiMzAgDQpT qAUsjA0ageMHPUrxHASkS9 UtgxMbPBnsSOMqpp0ilTgl IGxhYmVsbGVkIHdpdGggdG gnPQTrjNpsbgOyW1S9ezOj JH4cBNCDHDKfaX6jPDLyBQ IpKWEwRAYegQ3sUOR7y1Ma kgNdZKOYIVRcuIroME09cQ BjZWxpYWMgZGlzZWFzZSBh gaJdxrNyr36iwdYjl3QgUV 7qdZwpFYeTUUjmNoTqTX5z RBJemqHzc4OwEJ3tTNUxuM QrQDEewwjenBKxSPx3cJVv CFMkDyAeuWosk8JgPNObPH orHI37niQmZI8nWKycDE7e CVcoWH6uLCTtOZRyUPQyBd RhqMOqDnDmqDIxXaMuI97w BuAXiKDib9SiO7wvMA3oxD YgVsbjuWBnSFWxuOtwv3Iu sQOdBPUvo3ZhqOFwURmnND 4hAJM4Ky0wtZLbZQYvzfM7 c4AeWJwsFMVkPmwbEAFwJT slt5ZvLCLbsDPPl9IkKV4C XHBhciANClxzYTMwXGVwaW LJk0UgTVNCLqectVmdSqIo eNIkUwB5IAIjkXFqPIG8WJ 1czKhqXREtDQh0AXmnPPDv O8KrU9DaRDgtGnMlOZxyFG LoSHGgQCdbPGGoD6RJCWJt XWE3PlIoMAUzSSp5VDmvZ6 ZRWQUlCRIuWnO6JDX4DsV9 UHq1KWSNBz8tSEtgDwFaTR DlDdE5ROl2UjFtJPIjAdJz XBDhLRKcCDnsvLIbJE8xmB rjLYVdCXTpPOV2GVJrsLJQ u3MxOLYnMPlnMcKbFYMAYS WRJE4QAgBPPCMrSoIcrLHi QD1WHRIrddTvSWjorXqfzC 3ozOFdD7svSuFrFepjrOgt TmVzdERvYzEgDQpcbHRycG FyXGxpbjBccmluMFxzYjMw GGAfpSBOy6NcDFMVXcViXK NpbWVuIEMgaXMgcmVjZWl2 NZVtoS5iCt0xwRUffQ2shA XpAFbzZVJhn5z7fZU1vJXo dLL4eEOgpScqQyJsHY2fyY DgAPEOJF53eMUygrSfYNDw bM9bKDAnIOHiMFZ2sjbyLV TKFXL7vGIsv2T8TDsjKDU2 mL4hoEfxKhNvA1N6DGNbGC Gxa43okSD7ncZuEhEzZPVa ps6hxE5eEVkichWkaTonrv Rsa7X5KGUdq1W6GWReckXf wPPwsERrGKSzHiR3TYItVd K6AEHmJTUcjVXpPXMxQV3y VGhlIHNwZWNpbWVuIGlzIG MpvUGqtgVkWCAjzx70I1kn NJKszR2es4gmFeRaUBPgIB LgrOHgzEU2AZYjaP3pkE21 gkZlpbVOBK4enRAvSK7UIP NiMFxlcGljWHNiMCANClxw ZYJzTQpxx0SdEPclwRfiHF NySdHkYShBdDbqOSWFL5ek tYHnRAkvPXLPYEoUJ4OJKH 5SHCAmrHYMARC7XK7oVTdg BAMyW2XqD7VlhuS4q4afwO mfo4NrdQTvSI1fiHTgSK0O XHBhcmQgDQp9 Disclaimer (test code = [id number]) q9bjoTZtTSPnb3kgTAOajE FuZzEwMzNcZnRuYmpcdWMx YNpppfHeUYtea5TgF6WxVk AwMFxhbnNpXGRlZmxhbmcx VUVnTQT1sqSpESCsWJbzTR PyWDaqEt3stROmnNviAmYw GQYkt1uzplLHLPgzCmEzS2 41VHYnYSbyg7mlz3YyKXZj tAVji6Q1DNQHdnyatGb7oY wfL45it0V5RmmwX2bdJBBp MTOnI6GgDC5iQXDzZck2BW J5JFB0DVXdFNOyF8PqPV5r YNQdtMLbQYl1v7qwjZogMB XvEZY8u1hrKXqyzfIdLL3f oi0kmFo1e6gvvbHzFIGvSE FgjKDIPCRlJ9SmsNkhMk5l wZa7cHxyOkycDWR9Nod9TM 3kfx29rrt1eJqfMILzaidc QuG6ROskPSInxlnwDGq3HR brVYChgHR7ZCInfOYdQ4Qp CRMwSB1prua9EMA6CNueCL BoNyY1TRHphQCjAZYpjLsh PFfjm873YQP3WjMkDU1zB0 Bze3P8lV2bpTXbWFYelQCn SvOqSWKmny4xcPJwHSbkn3 VxTDM8kjH0gVMtwHNkIFCf IA32Pwqiv3TmNqvcx6FwM5 0eiKT4EZeds0vbTU1wYsG0 ovBvIEvqr9twyO2uUhF3HK itUK1iOA7jOQCkdB0ljgta XHBnYnJkcmhlYWRccGdicm DjHr0wrUejVPH9RBftL1yf eT5jJgD2VEpwE9zxhJ9eGU y7BVfraOX2OQXruO4rCI1u hjrnf3uqJSjlLKyjKZZfhq M8uuZ4UKCkoWPkZ6SamE8i GEPaCL6fypovg0jeHMR2SP xsEJFwAMY7SzUsGAQih0Ir szg7OqAnd5AumUObYJavZ9 4fl041UVBttkOtL8cnlUMt qmeaxBJxyyzuTXsyjiS3VY LpmqRma9WxWJPbTCY7SShb GDlnxKIiVDHrxTfaq2daN4 RscGFyXHBsYWluXGYxXGZz MjBcbGFuZzEwMzNcaGljaF exXJegPuGuVEYxNBpfG1yj UjQhT8QaMELkPdPccKGtK2 ggVGhpcyByZXBvcnQgbWF5 BHyxY7m3HHRmknXrdTv6ou LbDmIlDNZzHJN8RMforQKg XFZsu3JpeuzjuEWsUw6ucA ZpZBYvmY7qUHRbHRMfLQah GF2yhCv9NEYZrJVyfAZyHf JPLZBnFX53ovEeGPTTjnbk n7K1NKwkATMyg6KhjNHiI9 nok9NwAGEyw40yYZ5ev2C5 q2ekGNR8UH6jk6QbEFTvmM TdvEBfPSHgz6Drjbjpq4Ss OEWvfyKhd2VcEMKzjyElkJ IuWSDgybRjbh6fotXmAXDp GUTlB7KlzvpgvZtnfvUiLT Qsfm2ikmHlMBY6HMJLEUQq LLLes4GviP9aeSEJIYW6hK Bhdt4wnlIYoIXnGCCsip12 KCLsFM9bG6qkUPAwDNDras AojQZug8MkMCWzpMI1rUYi BS4OGhEXd98mYIHzVPDYyk WpLYEdyTkxiSS4omC3pK7l IChGREEpLlx+IFRoZSBGRE DbQO6jwzKms7VoetXcsXto OZYztWOkk2CkxIJus0QueF qxr3YilGIpxLJoPI7xWNOn clxwYXIgVVRNQiBMYWJvcm A0d8VqWYZfGUDyHTM4yVog oem4NVMuzQ4hULAkG9fidr gdPLarVORsw2LbpJ4yxRIR nNBsk8BtgIXihNEEcTLiNF 7stiCxHMlZRPmDNBR8ueFt FICot8XrPEipY3stQ34iiP myaFg4gIB0ZPN7aI2wBrv+ IFxwYXJccGFyIEFwcHJvcH OyDCAteMraekExM1FdamLk uJ6mgFEkuoTtEE3fXP6fA7 W8gQMqIZNqfoFxw1noOThm dmUgYmVlbiByZXZpZXdlZC Cnw7YuKWdbMTP9DRkgjrEg bmNsdWRpbmcgSCZFLCBTcG SazMHjDOU3CTpshoNodaPc UO5nwQ6byVutnO2jtYNwzO T0qcglVMMkWTGqlCftKDIv CN1wmYjzlK0zVpMvMmAyPF yaFC7hZFRzE1mhdGQdPGOo PLYuR6weKhPhqJ9mcJnuIP xjZjJcZnMyMFxwYXJccGFy XHBsYWluXGYxXGZzMjBcbG FuZzEwMzNcaGljaFxmMVxk FnRvEUJoZSizK4lhSqTiN3 PfFMUkShZblOUaU1nvGBju FBN8MJFjRI1kaSFgQG93lB Kzj6dqPQxdnJipmw8bQ07z sCYgSFvchWwySLAfv05gk9 WiGHWmtvCnzf0yLNSxdzY7 kH7dOBXrvIkzIRRniQLpRC Uyp6ZyJMizeONjizArYZlh PXUkRRDypOYcwlH3kcEftv JsytIzEXMtzOciKPXyv3Wr EUTjZBlla4Tnqs8taNVlUR YudrEYsQjhrFKurH6cX8Sz KYTaFZBqlc1lAZNwfZ3gRX ziz0WzvqfgAPFzBDIeVQPd iiXctn4xRPCapVCYNF6FLA gpiSDzx5RedgChZ4wUYOZ4 NUQwNjYwMjgxKSBleGNlcH LtHPSdia17DLXuqQ1auCar IMSjxC6rlI0oiEyunK9nRs RnKrQsTWlgXK2fODKbT7pt bIOiVDBdUALsY7uwXnSooR 9jaFxmMVxjZjJcZnMyMFxw YXJ9fQ== Embedded Images (test code = [id number]) [facility] [id number] 19:23:05* Test Item Value Reference Range Interpretation Comme nts Case Report (test code = [id number]) Surgical Pathology ?Case: [id number] ? Authorizing Provider: ?Dominic Keita MD ? [...] HPylori ? Final Diagnosis (test code = [id number]) c3ijfINnDAUsz2uqSKKwtO FuZzEwMzNcZnRuYmpcdWMx QZslcfCsQXezwJulLTZ5BQ IzGJ0msRvnoJe0pUewNNOj ujM6yALpAEvki2gmCBU0b7 hghhzbTORlTYyhGd7nlIFo rXpbPcSfKRXrSVq3xA64DF HumL5hiPWzDSm6SSJakXAw ozRuBcKlFMJjrYNveQG9FX WcBG0xzpeaFGngANxfRCZm dwE8KHKukOIhC3TaCZFkQC 4uleygYGR9PVdsZKDeORA7 RyXkGZBzi8Ddltb4TzYrhB FyZFxwbGFpblxmczIwXHBh krYDSqKXAN8UZWJFQTCSF8 cNBBZQJG9IIYJDWxsdpKSu WQRnIMDfEHOCPF6NTIFcW8 kJUvYsME6MLHTcVLRbaNBm STIcipGJTwLCQO6ZST3CBO wgQklPUFNZOlxwYXIgICAg LIFsLAsHM3UEZOVyTQCZI8 KAFYoJROgdRd2pFRNUJH9L P5yKS8DCXPMAVW7YUStoHG YmJIFmIEHgHP2IHWzpYQEO YT9VBOWNLNWLOSaUAXILOF NTTLpRCAZVY5DKDMuFDADd upqmWDGbUh7lX8CQRDZNGL wgQklPUFNZOlxwYXIgICAg IHDnTVOKS9UFCqBIKJ0GI7 3YWZGKKKRTPE3PISRFPFuZ NG3KKNETLYWURIING4DlfY FyICAgICAgLSBOTyBFVklE DP9KLZHCAgAKPTmQIJSuZI lTRUFTRVxwYXIgICAgICAt TP0OXTgcFBRGWU4RPBRICh dBTklTTVMgSURFTlRJRklF XPCFKZURGW3OBo5GQYUZNz xwYXJccGFyfXtccnRmMVxz t5JdJ7JyCyLrAWhqgxQqUF IzChdcjubnZGPrSHW8oaOz EJNlEFyeTNDkWNfoDg0myV NxnJktKeJkCEIwv1oshsRF BQtfAeGbV533JFCaGTbpk2 ixj5JkRYYgnRFhu1V6KOEV kqzykOl1t0lsEoIdWnT3wC LfVQljW0zkmmLsiXVxU0El jWQmlLn7fGxsH59ac6M6Is rjL7wjLUPkYWJnE8AiLY8q DOCiQee3JBV5UJX5HGEaZE LkQ5IhJW0gARKjuKDtIDo4 i6etcGlcBHVkYQY7y3tqEV tvgrX2RE3eir9xwOv2a7cx czEgRGVmYXVsdCBQYXJhZ3 GsyUbjKk1dxEu8aLloTaeh GMQ7Wwj5GW8erp34qxn0kV jyNOPqbngpHjF9XDgrKLPq zqdnRJm9ZNxbYBVaqTT5QE QosOAsV4KtJDVbQB7pbmc5 DLH5HEkvMVUoXzX8UFBxvX FkDCRfeZavMOjvy083PBJ8 EpKdLB8cQ3Gek9J2mH5doA KgCLGpcNVdCgRnHSNhsa5g yBRwTEssn4JtWDR7zgT1oS KxzTWcKRHnOL43Utlym3Ku SoytRHF6TBKhftWxs2Pby4 hqFpXeauGgF0rsA1AlVERl IWNkRTGvXoEocmCea1Rao4 PvnMVnjLi3a9pzCCAoSQZn oWbnb5jaWUT2CJGwG7O5eW Wrt3gaAMwjVNBmwPH0rxX8 UQJlbFXnA6YznR9kXRYnOS 7zkgj3j5vdDVF3KBzlUUCg UcL0ndP1IEOlzLSsXNLimX blQDxze446CHA9ZmAoPVOq x0UjY9DhcDsrG94dqZlvF1 2aYVOxqZqotD4atDoumK7k ZjBcZnMyNFxxbFxwbGFpbl xmMVxmczIwXGxhbmcxMDMz VVheR8xhKlChDYTgaXgoSX znj1KjETOfZZLhEctpzlKb XHBhciBJIGhhdmUgcGVyc2 9uYWxseSByZXZpZXdlZCBh qWimk8SvV2ryDL0rN9TywA UbsoWkgoTnJHjhVLAiv1e3 zQJviXsrm0KcqIXmSF41ay LsYBEiZUJ5JIMke5njJK60 ukkgSyAyvS80aaYkkrCbSK Kib1hfF1fhbMXud5Tgh7Gx esWyXMauo4UfFH6wjSExzr evzWT6GOXxjEWhghQpioH5 jMthYZLtrP7syZ9qiJuejE 9eSnIuFcSmXFnqYP9dNGGf A1rvaWTzGLKhOCHgT0ynQo SjcN7lbRscGukbynA6GMXm cn19 Clinical Information (test code = [id number]) Shivani Schuler is a 47 year old female with IDA1. Gastric polyp x 6 r/o adenoma2.Duodenal Bx, r/o Celiac disease 3. Gastric Bx r/o HPylori Gross Description (test code = [id number]) t2tbpZPaGRXocOXNZEK8OL RuLH6ofBruyEf4vPapPKMa rgV4rQJpRFnkc0tjJLP6u7 gdkiQSAdwfNMJiSX5wPRja CYOjMJ0fEzSnCFQgWbFuDC BhcGVydzEyMjQwXHBhcGVy gNZ6WQFpHD0hznjzVSdyMU uxYJBlyyH0KMVuyACkK9Kg DGPwVB0vbtdgYGD6TAROBt jjOa1rzPRboQhqIuLlVjLb YXJzZXQwXGZuaWwgQXJpYW d6eZ3VQacmSDI6VCWOYlws SuxihEylx9YipROgYMVzOL xcaWQgNTEwMDAgXFxkYiBP QzLtVeJ4Rpe5LCT8SaQ4ID y3ERIDPXXhInlqYYX2CxY6 DBr6VBAtZU7oBOogjSNcGV ycKtvaIVwmY133HFdyKTZa I2VkV1CtXXfjHnUfJUbdRB SbHFNrOBetAAWkI5LVBOIx HJW9FuYbTWOzIQg1TFmnV0 KGNEKbGQSaRqF7QUBpZtV2 ZBd8WDXOPm7gJNerRdHgEY s1CLW5WGs1VwZaDJBjYbXq QGGbWURvXBzfaHUzKJ0kcY mpSBPwPX3VSYIqOWktHLPg UwNgF9VYP2uWAX9rSDpogW JjaFxmczIyXHBhciANClxw HUJkDZ3JCDDaPJexDPi0pa FiFEJeZfMnYIKiQ24dm9HH x9KqZU7YHWz4zfJnraphwV 9yOXEkkiGsYXkYuODriU8u rlVBVKnyZCBdV4JxkgAtLW pdUGQcll3wrStcPXonPwLo bGVkIHdpdGggdGhlIHBhdG hodlSxI5P4ppWtAG5oKQMV PZLcxY2dJOQmVWJdf8JymL ItqBaoP6UdiVJvJuWtp1z9 fCC0YROhndPbASHzzJOpJQ Rsxa7cIKlbFcOcT2Y4UYVd VAXzd70rdIV5ztCwFbIdaS m4jFOmWAN4MI6riCbycvOw f2u1hV8bKFIef2C7RMVvd3 Y3SNFznoVqhYWrdXShLYSb JB7tjlQhNA20ZTIrSRyuDH luSHT2ZBH0HQNbwGLhg3ny gkipPs4pCGqrFD2nIZjoPF 74EQUdUIsoQRRsX1MhO1C4 AQsxASPcTYDkkNXmiS4vbn OhzqXakXw9DEHjTKX2hENm wDvbJXTqIundtVN1FITdWb JrprHhs2XonXa9sRSnPBug PNJynP2bbN1pHIMjTNQxol UKNtboZYJrLEabj7DfFRdu cGljWHNhMzAgDQpcZXBpY0 7ye2WVw1Ugk2obeQfsh4Tt oJHePF3ntZRoMG2Oh8rrLL IeaZWjHUY7RHwie1ooCSkl HUV6BULrDgYfPFElXS8IOh YgYCdyPOe8NCqhDAw9DAt0 LM5VMoJrVABbQqe5UmS8Uo SpHWf9PXjsYR0EPOE8NORe KHFiCCgqIWO4OXOeEYf2GO IgXFxzcyAzIFxcZmwgXFxu W88brSUfXCiwFdDtSDyvuR esQYCfLRJ1XC8TPQNeFuOh F0AKW5yNQM7gHdvldqNoPS EijxSZMdfyVFDjYK3GUWBl QHrtXSx9cuFgMOWlNwOnMU WjY82rb4LNt7ZhRI1CIHf9 zzTdqcdlfC1zTGCzuxXqj0 IzMFxlcGljWHNiMzAgDQpT dJRmzX4piyBCTMcuLXSzR9 HoxnIlXCctXGWttp8zvScj IGxhYmVsbGVkIHdpdGggdG qiUJKnbMthceVlE9W5qeAz EY3ySBKVOCPtoM8gHTMfAN CcSCLzXUZvkK8hAXD2k8Ij shWuWFUFDUKrmHtnSQ33pB BjZWxpYWMgZGlzZWFzZSBh crOlnxYgf69dejGfb9MyVQ 7azUtnVVpBTZyeZuWxVM7z LJPoefPli8KlVG1dQAPfoH XpHEHrituukELcEBq6sLQv QDZzCvMugSiik7ZnYGPjDQ qbQN22qvZpCV2fMQawAH6k RLbzOD4xSNHhUDAmJRFjMs OmaHJzQlRgyGXfOkDmY35s ZyXBjBRqe8YeJ3zhQF3sxM CnNpzlvGFpUOCrzCsnm8De pNZlVDIcx5BuhZYwMRanLD 1kIOX3Sp2fjFCbWVPmrnP1 f0OjAVqtDLRpDetiUPRgAE ign3HrVDTswVVQl1ZkAM6U XHBhciANClxzYTMwXGVwaW KHt7AxSWLIUdsolXlmUmUd hMBqDzL8UHTuwTQgRPY5YE 7jyQntPVNyYOx7OWdfKBYg T9WkQ5OaBInlDjHzTYohKD CiFGYyIErrSAHnD3OQVZGy ZTH6AyKgJYDpFFk6CNvjV1 XNNINnZPCdKtJ3RMC1LbF7 TXr1VNHHJo5qEPlmLrAuLZ ErYkK5ZQa3ZnHtAATrFlMo IIMmDBPyRUibbHUbMI9oqQ stTMXwWOYrDVM9PDHveRAN a2KmTRUuPEodRrHfLJEQRP CGVI0WXnDWJWVvFkCceSYf QB1PWPBdrsVkMKkusHyuyA 4teBGoK7eyMeChVqykbLmj TmVzdERvYzEgDQpcbHRycG FyXGxpbjBccmluMFxzYjMw OPKjlXFIj0WtCHSFCxAeJZ NpbWVuIEMgaXMgcmVjZWl2 HQFwbD2iOt3enXMldA8dxW RwGCptUTWfr5v3gWA2jGDw wCC1pGUkrKnbWuRzZT4ubW OcIENPKD24cYPfczOlJUOm hO6nQKImHNIhGMV3keydQR MBJOD6pBEqj7U0RGchNDB2 gW2jxAbzXfIoL1I7AZAiHG Cfv22umPS4djUmEuMoMCLj jy3ukR6vHBdlbhHwtGzfdv Nul3M8LQGpd7T3ODLzyiZc pAQlzWTtTQRyOyE4JYAtIg M6RDFdYVUyoDCkMLIdPE6m VGhlIHNwZWNpbWVuIGlzIG CfxKMitzJhUDBttt09W0oe MQDrbC4ec4chDmPnLDWaLD HfpRNykSR3SIYtxV0pnU00 taKopoLXHE1pkFLaWH2JMF NiMFxlcGljWHNiMCANClxw TFSyUFhux3WmBYnxeBbiLV BkExSrSPzWaYhvFNIZD8fn hLQkSEqoBAUUVQiNN5WVZM 8UPFTarJUGYYB6JM8oVCln WZJxH8EsL3HafyQ4n6lvxP fvz7UspFWlWQ6ukBKgVX5H XHBhcmQgDQp9 Disclaimer (test code = [id number]) e1rpbUAkRTQga8ifFROakI FuZzEwMzNcZnRuYmpcdWMx RBuqlmDkMDnfo2KwD2OaIq AwMFxhbnNpXGRlZmxhbmcx BXVrGFW9syUfXHBpRAsnKZ AaIQwvPf5sgDSpsWimYcSr QVUln8dqlpHSPAffQlWdG0 63JRTpRTsbt0eey7XvAXSo gEVup1Q6ERZMfcotfIm5mY uzI48zm9H7SmuzV6duUXKl RTMiX6EvXB6yFUMdHcd7RM N4BNF9WTDdMQPvC9YgYQ5h OIEkpSZeRCe8e7lusLdmUV NvQAV1b8vgXXpzzyTiEB0c vo8svXv8v1hqlbBeFVVcEP VwuTJOKKDoF6VjaDmzPj2z bMe1mYviJnawASF7Egv3DE 6bdu89smf3fUdwLQRumgpb KjT9ONjySVFtgkwcHAc1AQ raANMuxBZ5FCOckOXhM1Ec ZLHvJB5usyc0XAU8ENgiWH AlPlX7FFAgvHFsFPWinIzu XAyvn918PBG3UnEmGM3dX0 Hgu2Q1gQ6znUYdCRLebLUl ReMdHFYocr7kuVKzTQwut6 NaCSH6obM8lVMzlNNgZNBz WL15Rbzsp6TmDjsyn9UhG1 7kiVH7VSjok1jfRQ0nNoD2 luQyGLrcu8tqvV4kLrB8UH suLA1xVY2oJOMjfT7fpceh XHBnYnJkcmhlYWRccGdicm UqCu5itFlcWVL3LUovC7sh fG3oGcZ1YLexO4kkkX9xZV k6QUypeXX0MWPwcQ9kGH0f qusns7mzKCnuHObbTTTmod E2ivL0KKIpwACfN3ZzlU1x NBZjWY3ifrnbm0reGXV4RM heNUHyNEN6QdFbXVJmh2Yz pjd7ZqFyw3TwaHOtPUanE5 5px450WRMiovPlE3ovpMBc migxcREviluqGFvkvrS2LU BlgoGap9IuNKKyRWR8OSmx UZgpzSLcYYNneRqhj2jwF5 RscGFyXHBsYWluXGYxXGZz MjBcbGFuZzEwMzNcaGljaF veDXldJfNpHLAxTNvcO2it RhXlC6BdGFPiGhKcmEBxM3 ggVGhpcyByZXBvcnQgbWF5 ZHzqX1p1MHAhhoGmyLu5am ElVyIkHZGtZDF8WIewkMWu ELOrs3EzvedgnPYgBj1aqI UvCWEqdK2mUHSmDBMrEYxw LP4viJj5BBTQhMSutATlLy JXJXQmOZ47vaSbLRDIdofu m6L4RSuiCMZsf2ZquOMbV4 erk7UnECSmh75yXI9rv8G8 b4tqUEW3HM0ws9HaTGYqpT LauFXdPXZei9Keytpjj4Rg BOHqjrJti6GtKNIsbdYcsR RxKJAvqcLcyg4khfEpCISn HXOwL0SrzcvhsVxgjkIcDC Ytny4vycWrBDH0HUYKSQQz KBQkx1PpiO0btTQZJZC1qY Ckgg5dygYYjZVmWZOcuz08 CBTkPT7vK9dmUZZgQQHwpu NthGRvy0LyICIppYZ1cFIs BD9EOuQKc80aHWDlIUKQji UwOYEurJgvdPH9tcI9iO3k IChGREEpLlx+IFRoZSBGRE JjIC5xsnEfe0HqotIjuPki RSEogEUzh1QkmZXjn8VhsX hay5QhvHFgrSHhEX7sYEZr clxwYXIgVVRNQiBMYWJvcm L7a9OwRLPcTMArDSU1kPoo kcx3XTOghF0wIUDjK8rjue qhXBncOKFqe4EhsZ4zkZTG iHJal8ZqbXUekZZErARgAS 8houCnXBzSXBiGWEE0npCq JHUij2JhPOwkK3ssQ99jeH tupKr8hRM8EVE5pU4kWui+ IFxwYXJccGFyIEFwcHJvcH XnCMAiaHwyejIkD0BsezJi pW3sbNBbkkOnTV7kXK9xN1 K2iXQgQYRllwSst1avHYce dmUgYmVlbiByZXZpZXdlZC Tso8XsCJnvOBO7XJfflcKp bmNsdWRpbmcgSCZFLCBTcG CflKExBAK3GGwbntWqceQy AZ0wdU3iqQtjyE5ndBKbbG M6twifBGObQLDdqKwuLHCi AF1lgGxtvE3nEhWxJbHxQP ztGL1nADOyS4hhfUNwBHLv PNDbV6qqOpMvyR6xaFsqDS xjZjJcZnMyMFxwYXJccGFy XHBsYWluXGYxXGZzMjBcbG FuZzEwMzNcaGljaFxmMVxk XfYgKSYdHHgdI1gjHjGcG9 GqIOOrPzJnaBYsV9ixSWex FSZ8ISXbEI4eiRDtPW88wZ Dmo5rjDMvwsNoqat3sQ87d yLBxOXsvjZifONJog85qr6 EnVLDcrmZfhe7cFUXcnrJ3 vA3eFONdqWqdNHXysDLdNF Umc7FvUKcohUSfzsDaBQcv ZYYoHNVzrKIvnzP1edBuvf FibfUcWKGhwKpeZMBog2Ub FZMvALgrb9Ohuo7dtMMzES RslzKVwZyooXQxsU5bF7Qy MFNzAYLjzc5fIWDymF8oZZ nty3QpivgiRUJgYBUhXWSh ioMtpj7gHWBtxVEKNE0MFU muwTIry7TxnvBxY9xTRAP3 NUQwNjYwMjgxKSBleGNlcH KfRHJdaw23NCVwrG4dvNsp PGQddD8ilU2lcRfvmB6uPl NsLqToFGhpHV8uBLDnW8qp kCWaHOJcZRRxK6roEjQhaB 9jaFxmMVxjZjJcZnMyMFxw YXJ9fQ== Embedded Images (test code = [id number]) [facility] [id number] 19:23:05* Test Item Value Reference Range Interpretation Comme [facility] Case Report (test code = [id number]) Surgical Pathology ?Case: [id number] ? Authorizing Provider: ?Dominic Keita MD ? [...] HPylori ? Final Diagnosis (test code = [id number]) f3mzkHRxQVMml6ujQMPreQ FuZzEwMzNcZnRuYmpcdWMx GEttevBbBAbpsCqqMMV8FW WtMF9gbXdpuBc4uGnnDQYh cuX3mTBcEKuxk1oxXIK9d3 hnbzadFWPcLOflWj7nmHRs fMlxJpUyWGZsQIi7fL72LO VclG5kjGEaIPx2JDFhlCXk tjPjIxOsTHHuuWZzyTL6JE LvDI6vsqvaZIhrDNkrRCZr yyX6QFJgiNMxR8PoDDVvAD 9luwmiNYV1FWjhSVCfFNH4 FcGcZPWjd5Cskdy4LeBwkT FyZFxwbGFpblxmczIwXHBh qpGNXsWNYU9WNKVGNRWIJ2 sYTIICEI2UAXFZUpdftNVl BABnGLBiTQFNNC7GIQHcB4 fTCvXePY1RXSCgEDGupNYn CGRiulJSDiAEKG3SHI5VXE wgQklPUFNZOlxwYXIgICAg HXCwRPoFV6EIHCNpCZONK3 WNHGaTKOvyGx4pXJDAFR0C Z8eZG0RHDAVYVU6GUOfyDQ TyQOQdQQSrDS1AXXsyZAYG BD7AIYOBJSKKCWiHQYYAZK URFRfTDJKNV5AGJFmGAKHo gsqdANUgGs6cW1TXTPEFWX wgQklPUFNZOlxwYXIgICAg FRPnCNFLM9SEKoBYCU5ZN9 9YLAHWZVQNXX8HASKXYGhV NH1VYNGFFDINATGSX0KfqL FyICAgICAgLSBOTyBFVklE SF8MWFFEKwGNOWmDJQKqGW lTRUFTRVxwYXIgICAgICAt NS1LOTtyPLXLOH4KFKPDGr dBTklTTVMgSURFTlRJRklF FGDWSLDOLK5CQx2QQLAUBi xwYXJccGFyfXtccnRmMVxz t0VjD1LzLlRxVUreizPtWQ WhHbjshxjfHIVgVPV5enYu KCCqAYhfVWQyLTnvUn0mrC UyzMqfFpXuHHPim7kejuID DDlzKqEkO006YVAmGTnts3 slf3TnZPXzqULkl0N0FWHN jnrubSi1x7dsWaLkFvY0wN AtWHmqG4nrndTuqSDfV1Zl iLHnvCr0eIxgI97rd6O0Rt dcA4tsSLGqNNZjZ3LnTA3c SWYpTch9LJZ9LVX6EDCcLY YiN1QiFC4iXXScfJZdNUk5 m5eopYaoURDfOAP7v3pdIX bgbxX7FY2pou4ueFa4q2ex czEgRGVmYXVsdCBQYXJhZ3 VpwJcaGi7lrPp1jTwkUbjx RSG2Dqu9LP5giy24nam9kI ruLULqnmbrYrT5VCsqRUNr lpgsCJt5MXhxPPAzfAT1HN SgeWMfO3KcDPEwVC3ljns4 RSR3KWnsWRQjDeK2OZAqjJ HlIGUdkJleQCtin512DAT4 WuPtZN8vP6Sgj0O4zW4xdX PfQJLzrSCbWkJzVPKqdo0d bOCbDOrkn1AeJJO0idO8pR ZypTEfZDJkMI41Bxdbq8Cv QgwbBMF4LLKrvfVbn9Xau4 nySaQtweOfD5abC2QpFSWq CEZuJQWjAfFdagQuf6Tko4 JjoKWyaMc7z1qfPFCxRJWy xTqdf3atOHH5QTQqJ6Q8bA Mtq9twNMzbVXSejOD8aeR6 CEJprGTeZ5BbmA9kWDYkQL 6aamd9g9oyRNQ4UWnxIDZd KjO8gkH8QGMmuFSmXMOrxX kdCTucz063PAT7SmHhGLUs r4PbJ4PwpNjmI26pgRfmT0 1qEBBmlDkfyZ4ijIbpdD9u ZjBcZnMyNFxxbFxwbGFpbl xmMVxmczIwXGxhbmcxMDMz FPffT3igWjTuJVGcdAurMN ils5GrGJLyLUKdEtvpwfSz XHBhciBJIGhhdmUgcGVyc2 9uYWxseSByZXZpZXdlZCBh hXqpe4HnD8hyCU2cV1ZrzC BmchMxciPhOMmlTHOvi9v1 bLQesIulm1MbrBPaPY47cf CmMJSxHUB3GPHsc9bmVF97 zdtnNhAimL65giNediCqEP Khn9wkS5vhaWPqr4Jet0Fg bqYgWJcwu2AiGF9qiSOejp uviCF5POFxiAJjchVzhuT7 nIkiUQAsaC8atV6dvBbbuT 1pSzLfHfFeSIbzIG1wJATw C7jhsHXwXEFvGMLyC3gnXz VbuB9aqTfhNrcctdT4JYHr cn19 Clinical Information (test code = [id number]) Shivani Schuler is a 47 year old female with IDA1. Gastric polyp x 6 r/o adenoma2.Duodenal Bx, r/o Celiac disease 3. Gastric Bx r/o HPylori Gross Description (test code = [id number]) q6bjsMXrUBJkxPVYIUD3IF LqOW1avSrivNs1yPflDAKi flV1wXYtZSmim3paNVF6z2 oxaxLJGmnvKXKmLC5eNIsz PVSaSZ4iMxYuNCTlKxKsDW BhcGVydzEyMjQwXHBhcGVy wSJ2DDVuSQ9xmmjdBSaxPS nzEPQsxxW2WGJfpKRfW8Vv GUZsLQ3zypcsYVW2HBFNRo czOs7wsDLvdSnyKmGuGjSy YXJzZXQwXGZuaWwgQXJpYW v2rA8ZDslrBSF4VDJSVfuu KerfuPibc0OajSPbAQRqQO xcaWQgNTEwMDAgXFxkYiBP ZjMzDqW9Lgc7SSV8PoP8VG p9UHKOKPTeHbnmXXP2ImY7 XVs5OGDlYZ4iUTacrFMiNW hlNhrlHCncP071PLrgLQYr J6LgJ8JpHVykWoIwSHldSP LhNPKfJYkjSDPoV4THTCRx IPY1ArOtMZCqYHz1NInyO2 WBRJQjQCUjQnV0ITUvGfD7 KXu6PKJDLp0zZDxyKrQnBT f4VHT6MRh7EyFxIGIgSiIe TQKjHLHlIRwxvQDrBR4cmT jmXHFhXG7BSSXxWIfpACQd HgTbP0USU7pSIH1qGAzadG JjaFxmczIyXHBhciANClxw BODxWB1UICOhTLgkPYp1yv YjDWQqImEvTAHzW41ig2KE p0CtMN8WKBp3eoOkwpuakS 2aSIBvuvPmLMqCiALcrU3c jpDNSFftGCDkW4OynrDzJU qpISDcoj9vnEabWKyzKlTc bGVkIHdpdGggdGhlIHBhdG ejyzNlV4V3beJqLW6sMXAS MFJfyV6wDGRlLKRlv8QovZ YjoOsxY5JsnAClXfIiw2k7 rDB2VWPqhmLbGGPhrMRlOS Atrc2xWGleIdVhG9B8UQKc CDJsy46asDF7inRuNjOxtK g1qCTlRRB4GQ6fgNtxveWm v8w3oM0aHPXce2Y0ONVvm5 H0WACzxwDwtKXxgLVfZFNl DV6cfxVbKT23TKQqFKyyVE nvLMF5VLF2QMOkrQBow8qq ilemPn3jHFysFH6dUFrbEJ 46ECVuXPwoFRGlD5GxA2O8 GXuxFUIxKHAytNMffW7ojt SxrsDcfTy7UCNnDDF4qAMz qMbiXXPfEptiqQA6DMHfDq GclfHld3MfvGv8wGQeCZfv URCucM0fzO9xTIUrXPUtmv XOSzrwFECiWKbhj7WhOGvz cGljWHNhMzAgDQpcZXBpY0 0gi1KEi6Saq5cgaLlqq4Tp fFZuLP2hxXBkLI9Yt4itPT CfhKJhQPI2LFikp6wxHMlt ZOW0LUDwYiDqDOSrZI9FRu WhDLzbDOs5WXjmJMg1TWd3 ZX9ARlAyQYSrBoy7JfE9Nu DcXQf0XOfrHK7IHOR4NXOp QEXyEMdpDFL1UHChRIy5ZF IgXFxzcyAzIFxcZmwgXFxu P08npHTwQFmqWdVoQAiwtX ozTGAdKHL8NY3NSPPkFaPy I2BPN4qGJO6wKlzqsdTcYS DqifTCRkqeCSOvLE8NYOKc VPurFQs2knUpOQAdEbFuEM YdL53dh7AFr3ZiBQ9NKQi4 cxLgcogdjY3bPXHyirKmy8 IzMFxlcGljWHNiMzAgDQpT pOUkcK4ochTWMCayIFRvY0 UgfvWgXPrfVMMegf5odFnd IGxhYmVsbGVkIHdpdGggdG qsWSJrbSynanEjZ3C0tpMq CW6aQBLIPIBfcL1vIIRnED KmFLYcCMNauM1qOOY7h9Tv wyLbZWMIYLUlgRveIQ79vD BjZWxpYWMgZGlzZWFzZSBh nsLdvgWyv09zkvGlm3DzLA 9sxOhsYAcTEHstXdMmFQ1l QJIgrjNhz7KlPO1kJTUifB HnTKBolmmgeFJpNSd5bPRe CTLaBpGivPivt5DlMRWjNR cjYR59mxFuGK1xQNehKR2o FXztKS3zGCLaKLHuFYLlVb ZqlNTwLrGzdXMuDnCcC28o SsAKkETyh2YgD0fxDI6foF WnXjdfrJHwOZInuUgww0Yr bWCuJCAcw1SvsWIsDEuoHW 3oIOR9Cc2cpYKlIVEiaaA6 u7ErDZdkTDCtOvtlSBIiJS gib4ThCIOdpLKXm0FwHA9F XHBhciANClxzYTMwXGVwaW TVg0SmMHHRXqdhyXctYnSg sQCqJaP6HNWzzOOuNBU6YG 5cvIggZCZyPGs2OVrfMEXs Z5KmL3OrOEfjVuYzMGnxBF SnKVIwTHyuRYTjR0NFKMAy TPQ2ImMiZHRxMXo8UVrgP6 JIHMAkRUMnOeG9YCZ8UeF5 TPk7YEUNJj4oJPckXbYkZN OqUdH1UXl7ZeYaQJYbOzZu MWZtAMJbSMkezOSnAD5shR wsWKKtSXAkTZF9GNGxpMUG g1UvHLDdXWbfPuSpBZURPO LNEG0RAaBPTYNiKoFqrFYt EK4KDRIdshFwEXxdgGtkuU 1yiCCmS2bdSjMvMafjtXrs TmVzdERvYzEgDQpcbHRycG FyXGxpbjBccmluMFxzYjMw SHZcjALLv4UcSAUADaKvXS NpbWVuIEMgaXMgcmVjZWl2 ZNIjaM9wWd6smUHktY7qjK UfTJdqSKNpl2k3bYO7jRGs pVZ0hWBouZqjFlQvRF6fbC MmXCNVKN26zSUjgfOoLDUe yJ0vPXLxGGEnHIQ0slmkAB REYLM0lNXfy2J2BCkxSQI2 cK3mlYziJrKgE2C3IWFnUU Wyu65zuIE4wwVjItVhYGJs eb1rcQ8tRKacnoLdzLazra Oui8Y3ZBTup5J7QITnsvKu sHWrtLJvDJFpDjW2ORNqJc K2EXKzFZPztIDwODFyNB8m VGhlIHNwZWNpbWVuIGlzIG OsfBPxyoQcDIMudk21F3mh TFXueJ0xu9skOdQsUEXhOC AzjOCmaGU3KHObsV7tbC14 irTjmtHPOE0xqNFgAY5QBO NiMFxlcGljWHNiMCANClxw TETuWTiov5GyMGytkKgkTK LrPuLnAGmRuCycMFGUO7ao sGEuHXrmTMZIHClIB6NNEV 8NRHYtuTTFJIK0TJ8iDQhg OZQsJ1KkQ3FvlzQ3w3eeaC krx3LebIBuKE4pkHNdOJ0L XHBhcmQgDQp9 Disclaimer (test code = [id number]) q1enmHAzVZJkm3amSCUwcI FuZzEwMzNcZnRuYmpcdWMx DVbzfbQqJRqao4IqR3XjYn AwMFxhbnNpXGRlZmxhbmcx AEOtJVD8nfDbIWNcJDojOI TbDQcoPq5dwEIrzDhdSkLt HRDvt1akmtIROHikWfFrM1 15RUBbQBfcz3eab7GwYFAc vBObs5D0KNZWnwvrcQr2dT xkO17cn1L8ZyaoQ5sgLSJl GYMaK9RjDP6sPPGtNhu4PP A8KCE3CDUkNYTgQ9GbRK0c OGKzjWZjKFg4y3xjaHjhKV WgTCV5d8hdZBvhatCvJI4g wg4inNv6s7vwrbXwSEGjJD RgdFHIJYRvB9PpwWctZw0q nKe1nJczTrzpWGE2Dbl1CT 4txo83zkg4yOowLTPgoyia EtM3XEgiYLVuetemCXf2JT blWJAdjQV8SROclRUiA7Wg HJNpRE7eehx4OMO8MBzkJB PmSlM9CEEusLEcOCHpiFmy BVxsh101CMS3HyLxXL5iU4 Bxu5F8sR4plEYeLSIjePXj HnObGGNheo1udGBxTTmby4 IcKVR3hlO7gTJwuBWkWYIk EF93Wjyqd6QeWmhzj5HzE9 6lxIV4IRkjg3emUR3kEhN2 toZbCTuwg6jbwX7aZyV8VG kiSS1qTY3mRAZdpD2upbrc XHBnYnJkcmhlYWRccGdicm KvDh1smDcoOTD7MQqwY8zq jT7yKfS5AVqdH5yfxN9uNC j0HNcfgET2QOIwzQ9rEE9d bepts6rlWEinIBdwUNPaou H5xjF3CLGioCMzF6PboE9i EZKaZK9ignkdf3tbSKA8LC zqAMUyXQW9EiBuIEPdg4Bt zfc1CcRft8PfiXIqRDuaP3 4ia927DYShseXsK7amsLYz yaykdJAbqebqLBtuhwR5SO DkmwDnh3EdMSPgHID1ODkp OYdjhWJmSEYuaVpdt7aeI3 RscGFyXHBsYWluXGYxXGZz MjBcbGFuZzEwMzNcaGljaF rxDMdcNvOoEKDfQGntI2kp OrUkL8FuZDPgIcEekHXgL6 ggVGhpcyByZXBvcnQgbWF5 FEqkR4f9ILEkibPtwWz1pa OhIwJrGEJuTAF7VVqheGLa NXZab0IdseatlQFsMx3enB EeOXFcxT2zKUOjJJFqSNum NN0azHp9AHAIfQNctEWoAp DFPBAyAP55yiGoPXOHbwzn x6X3MHrdROXau2DnjSNfW0 haz1UrXTIif79dWT6fb3M2 h2wgEJR5JT9fd7YdQSOysR DaqBPvMEKdh9Gporzrq9Fq LMEoplNgr8QjWMLyyxLdjK BsQOPisiBbdi5cnwFpIECq EOTiP5FukorrwHqkzcCqLI Ihyr5mqpGdMOB4QDLKMPTz KWDsm1QbxG5woSWTERG4bY Wfbw4bchKHnLAtNUXcps41 XHLqWS8rY3crTBYkTIWjjy TnwCIyb0QtWKNeiVV3sZUh VV6QGaICf23eBIEsIOZWmq BfNIXkhSpngME5hhN5jB3a IChGREEpLlx+IFRoZSBGRE OwFH9xzjFpv1UuxhQgdDvx GCDlmVLab2RlzXXzx3YhuH qbl3HsxJNijDTeYR8aAKKo clxwYXIgVVRNQiBMYWJvcm W7m9FoJYPgCBKuGWB6zUdx wep6QGIlkH4nGOOfU1uney wkXOftHDNgu3DheG9poDDN cWYgt3DkgRSeuMNUdZPsGF 6rhgFtAHmTYVsSTJE4wpQq CDBjy5QhOFwlT0ysV44rdW ivzBw0hYD5DUX8qA5tTwd+ IFxwYXJccGFyIEFwcHJvcH ErGLUheXtkieMlE7TztdTl dL6jhJPprgHxFT2bOD0kC7 E0qGWoUPOdezApj8hePHah dmUgYmVlbiByZXZpZXdlZC Tip9VdOItvOAC1HSonekYz bmNsdWRpbmcgSCZFLCBTcG HdiYHrEMK9UUsfvnOjrmKt NO6saM3xoMifjA3nmYVrnL H6uqysKVIgNFDbsAfsATJm IO4skBebvQ0lFrNyOiTqZJ bvXP2xCFHwG7dvdFHlZZCo BXBwG4diVyJbcH3riVhuPW xjZjJcZnMyMFxwYXJccGFy XHBsYWluXGYxXGZzMjBcbG FuZzEwMzNcaGljaFxmMVxk KiOwORHlXAcoE4ocLtMuD4 CkIUEqByGylUOdL0ueVGoz BGP9FUJtJF8vhXTlYK56rD Wfr8urMUizkLukks4wO17m tGTwZLfpjJgtFVSgm32sr5 WgNAMhukMzjh3sZFNezoX4 bS0sAXItiKlxWKPtiGIpAG Bqm3FbXQkmwHBayiZiRVox MGGcPRGdzOQnhyV7raWfat BzbkNmUBTwpXvaQBYsv5Ll IVDgUYatj0Wsof6riAZnLK AfxrPPqSvwbWHqbO9yE2Nj GOEgFYBlrc2zYCNauZ0pDZ jxr2IcftnlLWOxSZHzWGIx jwUqxa2nUBSosYYDLZ8CUT bbvFInc4TcdwTeY4dWUCW0 NUQwNjYwMjgxKSBleGNlcH IcWIWfph46XMFrdP5ivEcv PLPlcY1iwL6ngTlwlU4zCw KjGfVcIIbqOF4lKDIeM6dm sVToMXTyXQFzS6ilBhXwmJ 9jaFxmMVxjZjJcZnMyMFxw YXJ9fQ== Embedded Images (test code = [id number]) [facility] [id number] 19:23:05* Test Item Value Reference Range Interpretation Comme nts Case Report (test code = [id number]) Surgical Pathology ?Case: [id number] ? Authorizing Provider: ?Dominic Keita MD ? [...] HPylori ? Final Diagnosis (test code = [id number]) a4dtmTIrYZBlf6amTRKkeY FuZzEwMzNcZnRuYmpcdWMx RTzzduTjKZnbrImhRBV6JZ ZiER7fnUujxSq2nAflSBKk lgH0wBFoEJjla9hfAUX7c4 lwagafELUsSHliYe5xxTYh qLycPgOuBZWeWTt7xT03IV FalY7rvWEcILj3TZLhsCBp hyZpKkKyGUBodVIhzFF1US ZiIK8llbpzNKbrNRupKIAn vuK4FOQsiIUmH0WwBQPqDK 1nyiqbOXY3IIkuZHFpKUT9 ZcBxHSKiv9Uphgz6XhFnlF FyZFxwbGFpblxmczIwXHBh ktNSGwTVGH0SUDYUNPJDI2 tOTGNEJM4GLEHUExegiCRz LKIsQXNwGQHMLS9WYONdF6 wRApUvXK7REAAsRNYycLOp TIVmftJHJsTBKK2KUH1SCV wgQklPUFNZOlxwYXIgICAg OYCnBUyXN1BWAAVaQYXLF1 MSIFpYAIhnOz5aURJDIV8X T7gMP0UARLQTDI3GGPzvFB HiACAcTJWmMM6TQGqtOAJK AE2PHQXJQZHOMFdCLLBVZU FVDLpXIURDU7HOLUuACFEu mdjyVEPmOd2xZ6DGCUSXAD wgQklPUFNZOlxwYXIgICAg CYDgQTXPU2KVFcIFRA2TY7 5QVRQHPCQTRO3YQQHQRSgU WL8EPFSZZUDUNLKNQ5OccQ FyICAgICAgLSBOTyBFVklE XE5UWVRPFxATRXdRJASxRD lTRUFTRVxwYXIgICAgICAt KE0BTViwQBAASG3CIPNVBp dBTklTTVMgSURFTlRJRklF ISXAWKFQJE7RUv1WLQPCKo xwYXJccGFyfXtccnRmMVxz x4LjB5ZmJqSiVCsocnXgAF VxMjdawnelBDYnYBP3cqCf MKGnAXonTYCcEGzkSt1qsQ KomKcdOlZwZSMry0wxxvNJ UUgaBcSlH247APZzLGubk6 tai9JdVJZasAJyf3N7NAVO lkubjXf6l5oxMeMpSqZ7eK AhTAslA1tvnfEdhYAdI9Ew wARxvDn1hTuoZ30ew9A5Lr ynA5gbRLGiKBCkK8AhTE9r ISJgYwv7UEC4WJQ8WDYeVD DyM7MpWT1nSLYzfGNzSZr6 o6jplEdzDETrPVA1y0khTI kytaK3TB5cpk7jjFi7f8tw czEgRGVmYXVsdCBQYXJhZ3 UegElaMt7wxDe3eUugOxfi JXV3Kkd8SK9hcg83nzk9zP neCOVmgyksEiE0JRdpRUOs eqmfAIi0VHwtFMFerIG3OD RvfCLrX5FgRHUrLX5upxg1 PSV0TOidNUZkDbG5SDColK NvVUAqcTjsZXmou922UPL4 JkVvMM7pX1Xkq8M2jK6ueI WaEFYrjNEqDbMhFGGkny9k vCMuWNhtr7MhJPC6ylG3xT VvbSFfMTVeDJ41Jjotg4Ml KolgTRW1CFXupdEkt3Qsk2 erLjYlgbWwR9emC1ZiZTSh JDGhBSSsWtSrhkVxi6Jma6 HweCXzmAx5q4nqTLZfULTh rPhlj9xrFWP3HZEtQ5V7nX Gwq5mcCWysAPQjuOB5tfT9 MPKlkHLnV6NbrH7cPASqHI 5rthi0t4hxTQF8WVthOSGx UdT8rdX9VMOfwSLuWGLznD laJNsja755NAS0HcWnZNVe n3WhC8GigYatM88rxXraU7 4nYYIcjHwuaU1foQjsyM6b ZjBcZnMyNFxxbFxwbGFpbl xmMVxmczIwXGxhbmcxMDMz IAvbJ0emLkZyYUZfzFknSM plm9DySSAdNHRkFhzcxzYk XHBhciBJIGhhdmUgcGVyc2 9uYWxseSByZXZpZXdlZCBh tVibw6KtX2kkKF6gH0KkxX QtttXedfYoKTmqGYJqu6r2 vOEgeDezx3ZwpCBkRC45ak OdVCYeZHI9MPHnb3moZZ83 rplnXbGawM68viRpwqWgZT Fuf7zkR2vlrUBfq9Tvy7Zm udYxQIrme3SmAM9bmSVhxz owhHE6HKUnfWLnmcGdxrH2 lThxWCJwgG5dkT6vtOuduQ 8dLrNyGzSkIJzzFQ1iDFCv C2kbsXRkLGPdFMTbK8wsPn IniU0alZiwUckggxX8PSNi cn19 Clinical Information (test code = [id number]) Shivani Schuler is a 47 year old female with IDA1. Gastric polyp x 6 r/o adenoma2.Duodenal Bx, r/o Celiac disease 3. Gastric Bx r/o HPylori Gross Description (test code = [id number]) v0hitGHuXUKxiPLAXPR1QN DvAF5uyIcptFo2xKxkHKXm ocQ1yOMhYPxmb6ajGGT4v3 tijtWELgdrBWLlDT3cEUni LXAsYF5oNgXiLSIcQjSzPW BhcGVydzEyMjQwXHBhcGVy uUW6UYEfPH4ntuvoMXfcVR xlFXWapjR3AORemHDlD5Wp MXDnOO6ycmgdXWS3IEFPJa vaFm3bbPYvbGdbBqFiNiEf YXJzZXQwXGZuaWwgQXJpYW t3yE5HYabkOIV2XQUIOeec WriteRufn9DvrSDaVWUqXI xcaWQgNTEwMDAgXFxkYiBP OpVfXuY8Jus2FTK6KiH0TY k6HBGUJOQwKkzrNOW9FpP2 WMv4EZGiNV8eTMtoaZZuPY ujFwprZEdrO636IDzaTPEq J5XnB0ErHIbpQzHrWRsqJM LbHZXaYLgtTDCbQ3IYOFCg NES1AhXdZVBiPEw5XLpzN7 HQERAnMBZjPgS3QDBwFsN4 RJo0CMAPWv9zQCftWaPsTH h4TRQ8NPt8ZzNxQVBrDcOo OIWaCIUsWWltzOKwQK8xpV ubHETpPE6QMHDdSFqvBUXu RxKyR9LDX7oXUD0dYPrdlM JjaFxmczIyXHBhciANClxw ULYjVM9TYGQiSOeuKRr9se JkGCZvWnMqRYMtK07ik4LG k7LsBK9ASKp7zyXhgyrabO 2eSKZzweUzDYaNbOXprP4h ffAZBQrnFFUsI1VivjYhSC emLIRhin9boCxnYAehJqWb bGVkIHdpdGggdGhlIHBhdG kaxaWoS1K8szNfZA7gRNEA GMIqrB4uXPAeQJWdh8QmbD AaoIqhP4MvoCPvLeEop6e2 pPY7XDAkhpMgNMTxcGXqDC Tcaj8dWZicWzXnS5O3GTPq MOPvs14dnSE4gbKzRhLvcJ u3nOBjVPW7QE8nbWxlctGb j3o8rM6yQFEcz4P7JUDuv3 A3BMLhjsHlwYTxcKBgUWGc HL4haxBnFT54WXKdWXlpYK xjYNZ5LUQ8UUWpdHNif3mt jdelEl3qRVriZZ3uGOmdGE 58ZIHcGExeNCRfC9MwB7H9 SUcaARVsBWVwzHStdH4izg VufqZaiHw8APGlTSY8tSWv uVxhTVMbIrlsqWD1EDFxFw LuesFoq3YdrIg0iRJzKGgl PGNwmP2mxJ0oOLZwYAJvqy IQVsomBXTeQMiaq7RoZSsp cGljWHNhMzAgDQpcZXBpY0 8dt5FLz0Hja7svnPisv0El fREgKA1upMHaTX7Qg6fyTI UlzSIaPUG6UXgss9jpQRdo IAK8YOTtOtJcDBOpCU3RGs XaFVawQDd5BGysXZw7HAc6 RR7JGsWvSTYuDrd2AlS5Sa VpEKj1UWakNI4QPGR4UKAl YSLrHFklKKT0HSDkBNq5AG IgXFxzcyAzIFxcZmwgXFxu K35rbRHqOFghOoMiWEcjrU fdLHXdWIR5UU5DOFNvHrGy S2LLX3lYAC5zPbyeieHyWS IgjkMGMqnrJZWwUL0CPULq HBsyWWp1ivTvDCEjEqChUC NoY31ta1GUr3LeYM7PYRd1 muChripzdP6uCZLjqzNaz2 IzMFxlcGljWHNiMzAgDQpT eUFttC2gohBLNIfyZZRpG4 YyliQlSTrqRFYikl5fkPwz IGxhYmVsbGVkIHdpdGggdG uuUMFkfWuznjNbD4L3knNd BF9wHKPRZNEhxN8mEAVjXW DjWGTxPSXacH6oUCN1m6Dp ljTnBODSAYCaaTdlLH41eG BjZWxpYWMgZGlzZWFzZSBh maXjhdBll46jjhXew0LyEG 0jxGryWPfSGMreBmKrGG3u DOFeycQrk1XhFI7iXNWwkX VeOEPapywqdRJyKQu4lWGg JMQwAnEylFbcm3CoKEPbME pmWL19onZxFV5pLZsqPW5v IXzcHA5xKNKxQQGkPSSsAn CzcGSwDaFxeTKoGdChI32n HkAByLGfi3GwE8ibQM0foA RzPoneuKLtMOCpsFqfy9Fn hYHsYKYkd8VqcJRlLSdsUM 7tZND9Vq6ttKPoNKZwcjZ5 m1VcJTmcPOUfPnuwTDNmTU vdq0NuJLUnqWJWv3BwDN6Z XHBhciANClxzYTMwXGVwaW TFp7KiEVFGCobmxRapWkHe rLLzUaU4OIIwwNUyUHH6OO 3mcMisVTEyBZs9FUzbUQXl Q7MpJ9UtXWosYiNaDXwuRQ OxXKBvIJyqWYToK0RRPWJn RVN2CdWnAGZpGEt6AKtfC1 JHJHSaOWJnPtF0LWH6YdJ9 CCt5XGONPy8kZAbqJeSvMK IgJmE3QVh5SvExKHRjDzHs GUPhDHAzCEldzXBjJQ2fiS hpSBKwJOPxWBM1KRIwzJKD x8NcXKOzVDvrElYdDAOTXS WFLK6TLbTWMQQeAhKxvIIm YH9SABIxkxPqNUovsKtkcG 5evVDxN3clNhAcOmtldFaq TmVzdERvYzEgDQpcbHRycG FyXGxpbjBccmluMFxzYjMw ZNMduQPKx1MeFXJJAfFjJI NpbWVuIEMgaXMgcmVjZWl2 EHQtdK2yTg0glOQbtA5owT ZbVDmjLRRxu4o9tWJ2oKTc pSZ3dKDizDxkQrCpMU5niT PbOFONVE08gMRusbFoKVYr zP4iSUTsSIAeQRS7vjxfNY XHLWY6eLIst3H4EAfbYXU4 iX4pqVcsUmYzE6O4FHClQS Pov87jzJC0mzTnDjFaZVDt kz6boP7xJWbireBtfRujke Loc1X7SZOme5K8VLAqwjKz kEKpgTTuCMGlCkK7OTHgTs L9BUImWOScoQRbGFLnED5l VGhlIHNwZWNpbWVuIGlzIG WukNPdumRrOCDfzi34P9rf JABfxN3ah2puNqGlXDZpSD HrjHVziSA4CJAnsG2jaM85 paNfpoWVJW6nhGJcBB6FJL NiMFxlcGljWHNiMCANClxw AGRlIMbrl4StRFjfhAxmGD HwLsNlUYlXyRcmEHCRW6ok pMXyMLdnOUUHJQeLW7LPKW 2AXCJdrFKHRMH3KK8yXKru SHUzG4AvE6TzdvM9y9kqmY xwe8SrwPTbAF6eyEZwSF5Z XHBhcmQgDQp9 Disclaimer (test code = [id number]) w9wpuXTxHZCtq9cpCYTayM FuZzEwMzNcZnRuYmpcdWMx XCabqsPeYBuyk6PgL2RtFh AwMFxhbnNpXGRlZmxhbmcx GWUhDUW5moYiNDZpQXngSD VePFcuJg8riCImfDpnZgSq TJSyq0ymupRBCNquYbVaZ5 29IBFzMQjoe6fys2OmBZYu zVFzx7N8ZWKCaijsjCg0kU nkU04kx6H9CposK8swENFu QJVvH6VjCC6qARVcMzi0WX C0OSY9KSIjWEHhQ6IhDL8q DHJqlYWbBAt5j9pomQvxAX GkOSR5z1wlUQzcotQjGV1o rs4lwBd8o0lczxGdISMtGG UclSMTRFOtM7EylZbuFv0t zEi5rLgyImugUPS1Wqu5GB 9lfl28ceg6iBqfFCKwudxg IkK9UHeqOXVrxwwoOBg6CE ndUQVgvXZ6DJZecWTlV7Cr NLNeTI3ijuu8MGM3QIorVP StIeH2PFZbcABpFPQcxIlc PZxgy656UPS5DfPrRF7eM7 Xyy2N6wP0hbVXwQZFjaMYf CbVdUCReti3sqHNlKMesj1 NyLRR9lcK2aVMfcYSgWACl SQ76Aybkp4WfKuzie5JdV0 5nhYA6DFyla7zhXZ0lKgN6 rrGbBCpyx8pglG4mFzM3SO xcVR9dCZ4uUXJhkB2fmzka XHBnYnJkcmhlYWRccGdicm RtUc5hpHyqTDY7EMadU8gv eL3hBfG5SJigT6uszU2gAV w4JMdbjDN7SCHqrH7fVJ2a vhclk7kkJUqgGXfyDNZzfm V2goG1GGTupUQqJ7OcdN5n CZZoOS7uliwti5fwAVG5OF ejQURfRTI4FxYoNVXfr1Zp gex0GxCgr1AbpPCnALuvB7 5om315PRPwqnNcA8akoGDt zoqfyISbnvabFPrjfuB4UF VygaYqn9HwZDNxVKJ2WNsn DDvupSQwPMWsaXtmy3ivV4 RscGFyXHBsYWluXGYxXGZz MjBcbGFuZzEwMzNcaGljaF ooNManMvXqBZLeJVyyC9mq LtDsY9SnOUDhVoHxeCYwU1 ggVGhpcyByZXBvcnQgbWF5 KLhmK8v4CYOtctIahTu1sh XlDgNzNTMsTIG5BWvonFFk QAScy0BuguwmeJTfHe9bgE MeNLTwsE5fHDUpKFMtBHlv QL4fuKq0WHOAhZDclGCeSa LFOOHeFZ91aqKkFNTBrvro k3U5XQswBRVtj0NtfPNdN4 ttj9FuZGYxq26nCU5id5S2 k6zaCNN2PB2dt3PhQMYbxM CdtXPlJRAtm7Lldnzrf1Iz WJZipfTni4OmKJGzykUlcC EvRRAfssTqzv1ryyWaVLHm XKWoJ7OkswjkvWjbgzFrDM Dobg5vkeKbTIN9HLQLBZXo CSKbo1KlnU4nuAEUKFH6mC Xkdy2wfiETzNMjYWOsaa42 QWIjXP4xH3luLSKeDHTvtb RxkQGsk3ObKDAxeTY2sNQu BI0LFoSCj30bHOXzOKHLvd CjLJWqjZnznTA6jeN5lU0e IChGREEpLlx+IFRoZSBGRE DtAR5deeJdx8LzqwRtpOdz ZMBceHMen1KddAWbq4VwhN hhk9EmfUIpeMSlNR9tHDHo clxwYXIgVVRNQiBMYWJvcm U7y7RsFWAfPOToUDP8jUwc nlu7VHJpcD1oKKAaU6uewc ojBBewNVHdg5HifR6baTSZ bOBtk6EiqNJztTZZxRQsVW 4jqrOoAAxMWRoRVIG0zoUu BJUff6MsGMhkL1tjF26myA ilnAg7gFY0MLB5zM1vOvl+ IFxwYXJccGFyIEFwcHJvcH HeYRZzzYohmgMoR9CqncSg gL7olAEluqGpIO8tDU6zD1 X8sKAoAGCwyyPtw8gkJVfh dmUgYmVlbiByZXZpZXdlZC Bks0AaFTxxNII5RAtiilRc bmNsdWRpbmcgSCZFLCBTcG LsfUDlKQH0RDponmRygqEp SM8sjY9mqKiadJ4cvGItxF F9hairGXSyKPLxmDsyXHNc XX4zlFzxeL4jYwEfPvLqSD lhVR3iUSWmP7ezqVVfAQOg ARMzF2wmZsTndW9paIqkFV xjZjJcZnMyMFxwYXJccGFy XHBsYWluXGYxXGZzMjBcbG FuZzEwMzNcaGljaFxmMVxk LpRoPVFqAIqpF1tmUqUdD6 FkNPDjVnSkbACwM4wwSAgf TBV7QGBzLV5yiWKcWD20vA Jyw0cyKPbyoHuuhj2cW58o sPCrTGiyrVlaUTWsh73zg4 QdMNAbcsBtgt4gRHJjzcN0 gP8hJIDclVayPBBysPRwKJ Rop0EjPMhcwYWorgBvTPpg LPDsBGEbpYLmhpD7puCido AwkiKwPPKmtFwoCPAaa0Nl SAPaGSbcz1Theq2pmOFbBT NppeGMrBgpvBGgkC6rN0Ev YPOzNLGegr5jGCTpkM4pZF ogp9AxibkfUZXmHFNxGNXp cbUlgp9bOFVlxZGMZE0WVV qhcCGzy2KddcSbL3oKEJG8 NUQwNjYwMjgxKSBleGNlcH MnVDAjvp00FRHgdV2zoAbh HCGgzC5qgY2drNuxmX7mVw UmXmOwJIkoKD7fHNGoF8xh sRDuTZMbXYQqQ2inNcFuzN 9jaFxmMVxjZjJcZnMyMFxw YXJ9fQ== Embedded Images (test code = [id number]) [facility] [id number] 19:23:05* Test Item Value Reference Range Interpretation Comme nts Case Report (test code = [id number]) Surgical Pathology ?Case: [id number] ? Authorizing Provider: ?Dominic Keita MD ? [...] HPylori ? Final Diagnosis (test code = [id number]) f1eseEZwIGKbg7yaIUTiuN FuZzEwMzNcZnRuYmpcdWMx KBrmnxKxWFpurFtiULX8ST RhUO4coGixcSc6gVzfYDSu waU1xMJwATsva6ezANS4x7 ydwcafOMXyMItyHt0vdDIq cMiuBuXoMNPmUKw6rD46FR XnrI8xnXTgQHl7OQBprPIy viEiDuPlMGYttTJokXG6CQ XxMA6ypsbfBVjqLGdkNWIb ukT2ZSZoaITaL0ChMTKfVD 3etptmUQY0MExyJPHvFPT9 AuBbTWHmy6Kiovx0LdUlvK FyZFxwbGFpblxmczIwXHBh cvPVLqGOQY4VGOIQVUSTJ3 bGTJRZXW1ORMJCOeeqyBLl TIAdWADuGLOALZ5AZVZuS2 nNSwDrBR7IBIVzCNBzsRNx YVAljaYLUdAAAF8ALE1ANC wgQklPUFNZOlxwYXIgICAg QAFlXVhQX2TIEQAeGGOEA2 XZOCnWXJoyQl1sBMWXJK7T I9oLA8WIGXGCVY4FDOioIC VsYKXhJRSkBM8OYIocFGTF OL2CCAZMUSIQXQlSKSADIF BEIVbFPHPVF4TDINdINQTn lczuYUGmBf1pU8DQNOWXUE wgQklPUFNZOlxwYXIgICAg ZRQpDOQUC8FRUbPTXX5IQ9 6NHATXJXYQEU3TICPQUIrL TU9HUIMUGRTICEVAU7UmkZ FyICAgICAgLSBOTyBFVklE GX2HSTXNRlSCDKdPRNKuZR lTRUFTRVxwYXIgICAgICAt AY1PLFgkAWDQYJ9ZPNTVYv dBTklTTVMgSURFTlRJRklF NTXKMYQNMS7CZf5RAVHXYi xwYXJccGFyfXtccnRmMVxz y3RnN4EkCzVyKSjuzsSgIN SdBrttavsfXMJhCFQ2taFt CWJuKCylNJSiCXbuBx0mrG BbnJbyAtDyCFCny7rrwqTR TSdkHeAxA920HICcGMthw9 tgo5BxUTHftKAtm2N0BWMU eydsrIs1i1smVsJfWgF0qM VhKElkU9hvasPjiINqH4Yp tYVpeZu6wTlvC10ei2Z2Tr xtZ4fcYLBgHVOhU5WdPM1b URHtPud2FNL3IZI1VHXiRL ZcN3SqIV4sTPBebALgMOe5 c2mjlRdcBVTfHKK1c1jpQM hukxN6FY5jfq9pdVu9r4iq czEgRGVmYXVsdCBQYXJhZ3 AbhRupUo4moGh2tUznJsfz PXW0Ktx2BE5fzj93ojt2uG viYLJedmkuPrB1CBqrODRd tacxFHb2NRmjJPKstTX4TK ZfkBWtQ1QoYYHnBM4blqk7 WYN5NCwbVZClPzG8UFApwN OtSWHxiZjwFAitx769JLX4 UiAhOW2wG3Tzv8F0iX5piE XiSTCxePSmTpFcIRJiuj5k kMDuXGusw1HiOQX1tzL4wE RlfLGpOFGgGK56Nejch1Yz AxwrBSK9OWVnvyTfd5Klg6 yvLyHvycXcT7nyG8VyFQZb DXKeFNLmFxOydwIrj2Sce7 DvuQLyuFf2k7osXPPiWBTl aBmuv1nrAGJ6URHtI7X0wE Ydq0ayFRptLPOulHI8ynK3 DURloMLhH6AmnN9fKIWcXW 4ykyh4y3osKZT2KBhvQYRq FnP0yrD4EHHeqUYbOKJfxJ riUEqkn736YHT4OdFdFSQq q7HfL2GcvXvfG61vgSptO7 4qUFXirWjqbB7nwPbqjD7v ZjBcZnMyNFxxbFxwbGFpbl xmMVxmczIwXGxhbmcxMDMz GWvjT0sgWqFcUBXptQruTJ vfx6JpLZEfAYMfCaiflsCx XHBhciBJIGhhdmUgcGVyc2 9uYWxseSByZXZpZXdlZCBh kFyqz4SqE0xaFG1yG0RibU FqnlBaboVrCExkDFFot5a5 mVYvcZtgz0UwvBKgBL16ur KvZZEnENK5ARAiy1jqDO42 giccFyMizV61clFvhkGzPW Hir9zsL7lmaHDxl9Qwk9Mi cwIuBQglv1OpKG5nuPDscm ctiMY0CUUdcJAxcpNcpmJ1 kCarMKXtpE7boA4ftZfciB 7oZzRfCdUiRLtsHB9uUCZz X5fkaCCzZMCaLVWfA7rtZt QspN7lySkaJmmgplS9YEUn cn19 Clinical Information (test code = [id number]) Shivani Schuler is a 47 year old female with IDA1. Gastric polyp x 6 r/o adenoma2.Duodenal Bx, r/o Celiac disease 3. Gastric Bx r/o HPylori Gross Description (test code = [id number]) b4qlyBSaUUNziBRHBJO2RQ RmGF5frIkuzRs0aNjqNKFe cdS5jOZhMSard3plJNH8u9 dtbiGSEzqzMSCrIB7vBCfk ELEtRI8wBqEuALFpMeNeKI BhcGVydzEyMjQwXHBhcGVy nZL3LRStKY6tlmfjNWyxUD rpEQLotkC3DGIiaFKrV6Cv ZYOuNW1itttwHRD2RMYTDb sgNg2xvAFfkKpkWqBgWmFp YXJzZXQwXGZuaWwgQXJpYW b0zV0YUhrjMRM8SQPXYvie GxfarCrra3EpwOGjAUYyNS xcaWQgNTEwMDAgXFxkYiBP JgFzSwA2Fjy9SLD8FgK1FC t2HDEXFYDpLsnlNHH2ByB7 SOj2BYVkIC4hQVexpEAxCQ frTffvCWygC855TWqpAVZz Q3YlM1SgHGhgAvLaDPzuYA YhOXCfZJstZMEkX5MTECGn GAQ6KoFoXUGlJLn2VFggE7 OGMFCkQRBjXiO5XMWiXqC5 TSa2MTPJKl1qVXxdHcJoDO b7GZA1YUt8TdBaQFZaJaFg URSjXCFoNYkorPDxWX5tcH byFTBaPE2ZOXXmCSzgSDWn ItThT5WZC1aCDZ9lODzqsK JjaFxmczIyXHBhciANClxw IYBmID3UFDUzLEdfGAd2or CeXCPbDfLqVSMeK32fv1MS j9PoWP3ARAj6ajKuczvcjR 0vYMVpukXhGXtMlSOyhG5q jjMFAIvcDNFeB4XaghKoDK rmDSNixo4qyTiaUQyqEzMb bGVkIHdpdGggdGhlIHBhdG nkklJqO5F0oiGyYO1zPGWS SCCjfQ2rDTAmDEGhg9AlcI LxhRgzC7JjgDOySjBkr8x0 zMW9UNTyodPsPGOqdVRuKV Uydy7fYPokPjDtW6Y5UNCh BHXtm68uoSJ8koFfBmGwhM g6qKFwIGJ6KB9gcVwclxGd w6v8rE7nCREob0P9SLEgc0 O2ICNvjdRheNNfyWNgBJVx CC5acyPtSL94DYGfHGxgWK zbWRC2QZN2VGFzcWNlj5ej waciDj9bVYxoKS7fZVkkKQ 99THHlDDmzHTZlJ6SnY7M2 USryRJTlCBOhaGRetY2jdt BudvHxjPe1OOMgPCQ6hLYv uImvDOCaBrxknUN6GDDuLn WnwwDyk5UocUu0bLLyVRte LIJmbC4mhW4kCPJpUEXdpe YDDoogELSdJImdb4TqXSmb cGljWHNhMzAgDQpcZXBpY0 4ty7KFl8Rvk0arzVdkm2Ki sZVkPS0wxUBpSH8Or2fdVV GbbDCdYWW7MYgdb6kzTOpq RDJ7TCJqFzYgUHJjBZ6SFz XyIXezNDv3CSooHUf8SRs6 IY2GEoVzZVLgMtm9CfY2En TdNYz7VNcwZH6EEZX7VPLt ZQDwOQbqSGX2HGAgAQc1WZ IgXFxzcyAzIFxcZmwgXFxu C49tjDByLDbeMqAtWDwcsQ kwJVTpPLO5KI2WQTPpGvPm X1CXS1qSDC5jAgdpdyNmIV CphqVIMztgUHCtAC4DQFCc CIejKYy4uiOtWTLcPyZdYQ TwE85jg0HQo4HnIG7MWMk4 gvMxfvyveT9cBQTjyeDlm0 IzMFxlcGljWHNiMzAgDQpT xXHfoB8xrsJUXJpcYCLhM4 PdilVfFJvsBHJzda2nrYps IGxhYmVsbGVkIHdpdGggdG gwADRzuKzongYeU0C9ydGo KF6nEAPVPDFtnM3zKVPeRU PeLMLjYEMneG7rJCO2t7Hk deQqAUNCSMXdzHlmQE50xV BjZWxpYWMgZGlzZWFzZSBh anYtldLec28sofPkk6HgTQ 5hdIgvJBlGCVqpKcEqLW0z BWPmgdJiz9ZvXK1tICYfhR AmFSKmnnmnpODzPAg1gUFd SFNnKtPypWkvl3QtMCMjCO waJB23dtOrBG1zQRauMP1p PBfzYS6tALYmARLuKFRrRo UftTBsFbElkFOtXkNkV27e AqJWoHHhy2WhS5eyPV4sxR YnOdustLRwAABohTane1Vc kJSlQHLtf3KwtIMaBDpgZN 8wVCK8Fv4yfRNwQASkbpG8 o5YlVXkuTHFrQysvXHJfSL obo6YaZNMvnFAHb3AeCR9V XHBhciANClxzYTMwXGVwaW OIn1ZgZLZNLrcrjWrhYzQk qYQtYwM2SQFkuETxKLA6LR 1siXwaUVCtZOt1ARleZHCq E3ZrM2GoJTcsIjSmKMvbQU AqSDZhLVhpPHSzM0DTHTMm GXQ6MiNoKSSrFAw9YZwfA6 SVIBFwNIOcXqE5EJI9MgT6 BRv2SSWKZk5uGKniUwCiIF NxRiU5XGh2OwCiIEIiXbJz LIKgEXXvFKoxpZJjCQ7riZ isBXKuLOSqFWV5UGImlKBC l4KgXAClAXmxXyVqHCMUQE MEOS0SWlRVKOGyDzBvqYHv VT0HTCWonmXtXGfetSpavU 7rkKDtZ4nmDtErRyghyVzj TmVzdERvYzEgDQpcbHRycG FyXGxpbjBccmluMFxzYjMw BSGvoSQIh5YlJRPLTwKrRT NpbWVuIEMgaXMgcmVjZWl2 WEMvaU3hTv4kgKHcdH7xcE WiYSuyGATge9z2sWX9bOOk aKU8eQUqkIxjMxGdHX8hhU XjWAMSJN39eJComzUaAEAp iW2qBGVmUJEaRLQ8qxswGN BLXGS0uORvb9Z2JYcsZYM4 vT4zzXeoQyYgM8H1MJTrMT Rdi81cyJE6hxPaRnZyRRPf jy9hnR3zBUkzxuWgwCgiga Jga7R8YNQbj4C8TFVoapAy rWFytXQqARKgGdQ1XAFiSq D0DXDvYNWggNMvWISdXH1q VGhlIHNwZWNpbWVuIGlzIG FizYDblbCiWQWdyu45A2cq VVKapS5la5amVsZrNIZrAL YwnJRdnBY9PBNljG8pqE63 tsHlidJYPF4ufUThXW6OVQ NiMFxlcGljWHNiMCANClxw CIYkXWwmt2JuOGdxhEbnIK ZnEgGrAWjAlJcxZKTWJ2qz oZWzPOndTVNLANrTI4SHQF 6APNBbqTZTBTK4BX3tNLib CFCgO4BpU6XuxfY5n8vkmP xfo1BxlMVmKX2nzAZiDX3A XHBhcmQgDQp9 Disclaimer (test code = [id number]) k3txrMFiLFWtt6yuVZIonZ FuZzEwMzNcZnRuYmpcdWMx UCxresNhIJhsy4XeO6TfZx AwMFxhbnNpXGRlZmxhbmcx VTRgNBN2dkTqYDJmHUcqSA LfKPmvFj3jnFVfhBfgNvXr RALfq4mvfjQEOUujTqXmO5 97MCSxWSkvw6eoj0MvPDHi aKMso4D6BRFCqlxwgFl2mG msL07aq9S6JewqB5eyCMJg BBNsA7FgIU1jVBWxQdp5VS R3XAR4LWZdWGRuK4FyUD8h JAYanYOdGIa4h9rppGntOX OlBEK2x6kwDLfgveEmXT5o as3soIu9v0otksQpVTSdMO IbcIYWURQaC3ZhyKndTa9o nRq5rDtsVvleUAD5Vmj0CS 5odr62knk5iIwnWQKkfyho MjP2ALcjQNZbzjshXPd3XX viJFAtyTZ8OKGyzITtD8Ko IFCdHT6sxjr9CMB0NSqhOP VfVoE7JLXkuKVcJMCynDju WHrat322HKB9OvSsWN9qY0 Grd2J5oL4dcAYpLAJndCXo NuZtVRYsqy9pnCUbOKpmh5 IoAWI3lkH7uCQdyJLfTUSc VH80Jncyt7YmRkrml3ZiP6 8bwDF3RYzxc0oqLF0gDjV8 llSyBRlwv1kmsF7cFvK0NI beJH5kJG9eQPMwfQ0pqsam XHBnYnJkcmhlYWRccGdicm XnIg5xrAaiTNW1GIcoK4ln pT0cNdD4XXixH9wvdO9qSA a9LDvyyUO2SZSfqN4nUZ0w jrteo3hdZXkkGOdoLLMpfo D2mmT3CMKszVCgC7GahJ9h NRTiRX8qdfqxq8niZHB1FR fbKKVmJEG9XuCuPTYdb6Lq uad2VdYvj2JvoGXnSBtwM0 1rs413NODnomJzU0newPIb omxjrMDcrqxjPLtltcH3HX AldgOwx5VrBKOoSQI3QBbt EUuxpNFhSEPvcTwkz6jiT8 RscGFyXHBsYWluXGYxXGZz MjBcbGFuZzEwMzNcaGljaF wfLNmrOgWtCYFnCKlhZ5cb OyVwB2PpJSQsChQczGTzA1 ggVGhpcyByZXBvcnQgbWF5 TDiiE7w1TFLwfbNzjSc6hn YyYsRuCMHpBCD4YYemkFNp ZXUms8YoevjvfYPdQg3mrY VsIVCbrQ0qGCPzKSHtVGva OM2uxRx8MSJHoYNlmWKoCr UMWRFcDK90xzRtTVJThxuc q8E4BNmqOZRpo7PvwIMcC6 fny1XnBEFxq62qVC0tn7Z9 j3lkUKC2RP0fx8NoOTSzgD UxrHPnVGFwy8Cnnaqxg7Zc KYPedtNin8BmCFTyeeEgkS OyICTykqOhep7nmtFvBTIf EFOzT2EedzhldEvqenSxSG Dhcf4mmoPrVLS8CNOYMXHt CEYwn8ItyP6qiPPXCBS3zL Daqm6jnnQWoRVzZRZbhx52 WWYmUX8kP9ejGSLdTVCmwb QhlEZxu7ExBSMjzSW3aKIu PI3EPwANl26fKZSeCJCEjn BqWHTzwRellPH2raI6tJ1h IChGREEpLlx+IFRoZSBGRE HvXM0jdkRtk8VmlqKfuPnl BIUbrJGlh8HlqVZtb8FiuZ zmz7OssOZnvWDeGC8vFNRx clxwYXIgVVRNQiBMYWJvcm H5t5ImHYRfMOMiHWI6vBmk zlr6FPKjbR3lLUZeX2rkkf ujDJupMXBwu6NypD4raIPX qUDmj7QyaONedYJZuSQjUC 5jlhLxFYlHNOlVGBS4xnVt NBElb4HsTHnkV4ynL80chN nzaJl3mCZ7JGA3pD0mRjf+ IFxwYXJccGFyIEFwcHJvcH MkXISuyAdagfBbN2JbmdFd zH4uaFQockObLW5eOL9xO5 G0gZPtVMZvugRfg4xsERew dmUgYmVlbiByZXZpZXdlZC Rfa5BwBQvqLDR9KTynbkCm bmNsdWRpbmcgSCZFLCBTcG OwnBYzROB6LJmkwfMltoPb DD2smB3lnZyxcW4jxYQevK R4qtaeZMFpHEMgnXalCEUm HH6ixQlwqK9dBkGlQsPyQV ttOR4mKOHlM6smeSJiGPIn LIAjF6piDxQawF3apZuoFD xjZjJcZnMyMFxwYXJccGFy XHBsYWluXGYxXGZzMjBcbG FuZzEwMzNcaGljaFxmMVxk HgUtRZEgOXnmX7glNqFlV3 DbCRBoXsLckVIaV3eqOXeu KLP0HHVxAA0bhPTiTS32rC Vuz1daFSwrpZdyrq3aI58x uGDoITangMesIFDpn12xn9 XhWSFqhdZjpi4fMOFcoqW4 zX4nYSKclNgqSKJmjTDhFC Gpy3SwEApdnVLqcvAiZPrs HTHsCCJagYQxeuR7zgSpkx XkvlMcQTWqwNmnPOMvh4Oi DGYdCQpjb5Zarm0woXXsMU EwmbTQmWurlQWssF4gX8Jb YKRdQTSozk7rYNNnqX6rSH naa4EipxclJAHoTNHiKZGl iaSosb7eWVFnfDWRXF8LIH gxsINrq9UciiAfS2mTSED3 NUQwNjYwMjgxKSBleGNlcH VrBJWoce79EGQrzY7qoLyg EYZbwB4fcB9emKoncP1nTi XxFqOtUTrgMM8tVFKwR9vm jTPcFIDeEVUrS9woGkVktX 9jaFxmMVxjZjJcZnMyMFxw YXJ9fQ== Embedded Images (test code = [id number]) [facility] [id number] 19:23:05* Test Item Value Reference Range Interpretation Comme nts Case Report (test code = [id number]) Surgical Pathology ?Case: [id number] ? Authorizing Provider: ?Dominic Keita MD ? [...] HPylori ? Final Diagnosis (test code = [id number]) i9leqICcXMUbt7bcCTHbkQ FuZzEwMzNcZnRuYmpcdWMx OIknxbRqOObwbGuuRIX2KC JvXD0dqBetpQl4pJirUBDz dbO6xXIrAFltc6hlQBI9v0 bfhapaDEKuENjdYv7qgBXf hRdnIgBjTKWnEBw6fG44JH TdtT7epDCvLQw1GSZphLQt cdMeXmRxGCPtcZTniJG4II AxPG6nytijEDxvRFchAZXo knI2RMQcnUHxO1MgMILbOS 0rllplERU4ZWwiSIHfGHF2 QjDwYLDyc3Xdclt8CrDgzA FyZFxwbGFpblxmczIwXHBh ryLHZmDGFI0ACMPSAGEMF4 bCEPODXX4TGRJNZmqzvERm IBFePNNuTRDJKC9XHESiZ9 nJWlVbSG5VQGToLEFgzPCl OLXdfyRMRrLPVP8OST7RLE wgQklPUFNZOlxwYXIgICAg LMQsCSqLR2NUZQWlXNNGH6 EGZMxPJJzuTm6mQKOQJR0G Z7dHH1FXGOUDNJ0BMSkzTR QpZQUgJVSeEX8EOYltXBNK FR6UEKDGTKKRXZtJFHVLHB BAXZiFGXIVP4YHZPwCSFQy moxcEKFrNb4mO1XZYGASJX wgQklPUFNZOlxwYXIgICAg QYHuVTGKQ5TGRyXUOQ2ZF7 3EVJBJMPIKKK8WVGHAIXqS WE4LPVWUOSPKUQEBN9TxiZ FyICAgICAgLSBOTyBFVklE EH2EMRCUOgNWYQrIKZAjDB lTRUFTRVxwYXIgICAgICAt CA9JDSszYRSACH4MPYVKQu dBTklTTVMgSURFTlRJRklF EKPGMYZBTL1ALc7YWNEOTp xwYXJccGFyfXtccnRmMVxz a2MwD5YmYqFfCJvshcVfPA BuStkdfsveEGQhJJO1etLv AELgXKkzIGZjRQqaOg7euC MwbAzrKbGiACGav5jcmjPK PRbjNoLlO343THRtQIhxl7 ejl1AeXDPfwTGva9E9FWBZ ukmjqCv9t9kpKkGoCgN3uV SwSSwgP1wbomNzcCQcT8Jb sJBoxXi9fMddH98wb2B9Gb jvH7wsZXLhFAFdL6HrIN9g XUVjAdr6SUK8ZMJ1BYKqMJ PpY1YvRK7fHSEbyCNqQQr1 j8bhhScbXUZwETN2y1oyBI ibdkM3TC7wol5ouOe7r2is czEgRGVmYXVsdCBQYXJhZ3 IgbDceYn6yfMm2fYdbYzmp XBA4Usz9BW7uwy55fhv7oJ ygSERkcmxtNlZ3ICleFAHd odbvAEw9VHypPVOnbSN9TG InyKDdR2VsJKFlIS9fkwo7 ORC1AGwjJASiRkS3OAKmqM QqVJQonFmhHQhul966PSO3 RuUtCU5hT4Cax1B2hV9roN PuYTYmrJPbEjSoAGCphl1l hHBfPNyqv4RjOVD5atL1pF YwoLVeTVSmLK77Caaqi2Bu XwmcVVK1BHFuwdAsb2Gff9 nvXaNcnfPfW7tbP7KsWLLk WWZkLFVmGvWipmNtf0Fky5 VklMXwlJx8h2mmOSYgXARe cNuoz6yfKEE0RGLbO3J4jP Saz0foWPjeLIQqoQL1dvF6 YHDdtMAkR0BxtZ1fEQPiZK 7ayds1a8adXSD3CNdeMCNn AgH3csF6IPXwiCUrRHJvnI etSSuuh814ZWS8AfIsPLGl o3FsW1XgrQllB54ztAbtY6 1rYFSztGveuY0syVwbyO1n ZjBcZnMyNFxxbFxwbGFpbl xmMVxmczIwXGxhbmcxMDMz GJfuN9lhOuObHTJauPokRD xqm7LlVKDoOAMxRfvgpjWy XHBhciBJIGhhdmUgcGVyc2 9uYWxseSByZXZpZXdlZCBh kCoqo1AaF9fxBG1pC6AzbC TvkgXxejZlIWikXDBoh2o7 lOIltBjya5YqmWVxLU37qq CmREDrFUZ7CETio6elRO20 enixSzClrX32doCswmBfBY Csi0tbH2krnMEoq0Rpt3Rv jlKySChwp2FtYJ9nhMHlql ighCF3NPTczAUraaPndeK3 lZwmBQIgpV4hmA6ooEmrpK 1xFeQmQbNyXOocGG6gODCg D9ccfUDtJMAiHEEpE2jyFz UpqM6fsImuSmubsvW2LTTh cn19 Clinical Information (test code = [id number]) Shivani Schuler is a 47 year old female with IDA1. Gastric polyp x 6 r/o adenoma2.Duodenal Bx, r/o Celiac disease 3. Gastric Bx r/o HPylori Gross Description (test code = [id number]) f3durGRkNVPlcQMIXRE6OJ JwXR9kxYvzyGn2mZylIRGb khY2mJRxRIeyx6rkCEI4s3 hsybWAGfkuJJJsSF3yGZtt DNVyNF2uNbYqFWYpKeXyUR BhcGVydzEyMjQwXHBhcGVy pHR3NLTjSZ8sepskKIxtFZ vhCWShukJ6HSJbbHWpP0Vs OOTiPT6jdnuxTYX8NTAVEi gcTz4wuMCxnLrpLkHdUvSy YXJzZXQwXGZuaWwgQXJpYW l2gW4ILfljVCV1MKNWZztz DlvwbXilb2SclGRlFOCyDA xcaWQgNTEwMDAgXFxkYiBP IcUgMeH4Det8OKG9LsP7YF y1MZJKJHKwWkelAMM9CaP3 SXm0ZDBqDI6aXAfujJGqLL iuConlPZchU063VFkbUEUw L2DeT7VxHDxcItThCDazLG LnZLXiMUdaZNHaA6GHFMBk HCP6ItBkSQVvSUl3ZMlnP7 OICRAqSROoByI0DVNoVnX3 GYp9LXKHLs4rFFvrErFwXH h9BBG4OTl6FvAfNNWzEgYi SHHaWUFwIQsjiRYyHY9xdW xiFOOgIN5DRVLzFKnpRSKt RaZdM2IVX0iZRC3dLFewnY JjaFxmczIyXHBhciANClxw XOXhRH2PUYHxWQolHUk8vv DiARMyDbWiFAHmV27cd2GX e6UlGC3LKKa8mjKxragjoL 7bNVQbgrYjMAaOjXRasH7r knHYSXjlIIKyS9UwjcTyQT apPMWotc6gxBbwKDcdFaRj bGVkIHdpdGggdGhlIHBhdG gyurNbG2R2wmVwCU8cIUSH JQFxyX3bHEFaVLDso9EabL IysJywP4UiqVXvRwLjh8f8 qWF8DJQlzkZoREHnxNYkCZ Nlkk5rKSnpXdVcR5Y1LSXl HEPpu20cbAS9aoNlKoSwwO c6hYZnDCV8LW2nvDdirmPn n6m0bR9xELAfg1G2JLFdz4 Z5KVJbheOszRXoyRTcVHZt FZ5flxEpIL17AJHzMPwuAL hzNCE5RPF0IAUgeSTdu5td ynfxHs0uXEilYU3oLTdsPR 97TQFvKPqgVASoT8DjU8A6 KYzwPUSaBLYlcHRzqX7xvq GpjnHgwWr3MCHzMCZ6kPYr wSniCMYuFwbirBR9LLEbAi MqtnIoz7RhcVt3cBWmXJvd VNXarR2swR2xFXMrSTJiej DDLrtkPHItTMyvb2ZhLOql cGljWHNhMzAgDQpcZXBpY0 6uz4RMi3Vuu6yojHaop3Sg oLJdLN0tqRFwZR8Zq2ghRV GrlBAkBSY8NImrt4fyUOcm JMI3EXLgTaXvFRXsCO4BLa DgEPtmHZn4YJlaZFe4AJj0 XR2WOrKlHXXxMpr0FvA4Ng TwBUp6IFciRB3AKHP3UHKd SONkOWywCMI5DGBmNLc9YN IgXFxzcyAzIFxcZmwgXFxu J06geGPhYFchXeZeJEokkG boCFLsKTM1QU0KDROcNhSw L6YMG7rKYJ0dTrpfmsLvQF TolyMODvagVGMuJP7ZTRRv IOloWZn4lbAgDNUkKfHeZX GuP53xi4OZi3XqXR9ZCJj8 jgUsnvdycT7cAPIjqiYys8 IzMFxlcGljWHNiMzAgDQpT yLAfmC4sykSRSTxkMMPuZ6 UkzgZrSYosSUZfvh4opPxg IGxhYmVsbGVkIHdpdGggdG bhZXXhfLewqwOrC1K8opZf JA5zCZZVHJDzrZ5pHKUiBK LxNVVoFZDhfG4zNCS2y4Pu ybLbPCRUXEPflFeuUX96xB BjZWxpYWMgZGlzZWFzZSBh jdMjtpVro29kycKic1FoCI 5ivMlsTOpUAQzjZiMxRU9c TPFrqtBuw1LzHS9nKRLmpQ JvMENmpgsksKEeVLi4dXMu GSRxOmUbzPmir9WpNITcYS ckGH30oqTdEA9kUCcoPF7q GKxbPR2kYUEgRDVaQXXkPc KjaSWkUlGztUAdYsMiE47h BjAWhOKrs4LnJ3lkOG7cdN TtGampvVRgPRPsxMitc7Yz zQMwPSExg5UumYMzXUugMT 1bYMR6Ki5trDOiSJFvpvN2 s6LnBWmbXUVmKdiaEQMkIQ rek8EnBLRdkQBKf2YwPM3Q XHBhciANClxzYTMwXGVwaW KBz9OaYJLYTevpsGfoZiJn dUNbDlQ4KOXpmISpFEE6TQ 7irBpqYBUxVLv5YAyuVPKa R7CwZ8JeLBcjHmZlEUjvRP CeMEFiTDzgUDArL4XJDHDu VYF5SdYbAKMzKQa0IZtfD7 UWSVQdTSYdGlY9VCG8BqC4 UWo1CMWLFw7lVQlgKsQaYL CoNsX5IXx0AvDmIPQyWjUa AGRrUWQrAQhrbGBoFG8vhT yjYILsBOCqNQA6WITqiWWS m0WfAKThBOffVsNoIXIDJP MDGW8GTjQEOTGhTeAisSVw EK1XBXGfcbUeXTxqxMwgbT 1ihEFtW7dkKuHdQgwmfCsb TmVzdERvYzEgDQpcbHRycG FyXGxpbjBccmluMFxzYjMw LVVccMDJh6HbTODIGfVnTK NpbWVuIEMgaXMgcmVjZWl2 KYSmvU6iEw6unLMepJ9uvA RhNQorREDwd1r7uIZ2hPVs kOI2hQBwsIfsGjLzYU4ciI DwRUGYSL94cXVblhVgAVKo cS9mFQEyWDGlVLW2rltpWP YMEQX6hNRzt6I7NJgqJWQ5 hE4qyDqmDjCtY0Z7NQGiUJ Azy29lcHN5tcCeMdWmBRFb ge5suT0yPBhxhwXykDjetr Gwg0Q6IPKsj3G4NTDtejFv eRCslTCaWSWdJtF5IBXuEc W9WSTmKKTpeJBlKILnGS1h VGhlIHNwZWNpbWVuIGlzIG CavFKaqnPpVCLrky90O0lp NAEpxV8sg8yyDwTrQJBqTT HzlGYvhVM6JONxuF6blQ13 dlKsyvXTEP5rpRApDQ4GNO NiMFxlcGljWHNiMCANClxw VBQgOMfwr1RdXQdoxNlnYU GnAtWjUJoHkZsgJPKRV8go hJVfOHrwWPRTTEbZA5VZEB 5ZDATeqXBIPKA1BS6zTBio VTSzX4IwF3DpacR6b6wtvD yfn7UmgBGvRB7zoMXuCX4L XHBhcmQgDQp9 Disclaimer (test code = [id number]) h0kaiLEkQNOen3syOPGmhY FuZzEwMzNcZnRuYmpcdWMx XYpqbpWlEKzta5VaR9SaQd AwMFxhbnNpXGRlZmxhbmcx LYLzCHW4lbEvGMKhCGchRE ZuWBozYc7odVQcnRbqHoUq VSTkz9qzdnRZGGlqYtQcR0 40BQLkECmqp7uvv4VqJCCb sJYfu2E8WLBNyoxvcGu7xV sqG15iy1D6IbwiM2vmEJRh QGIqR9TqIC5nRHQeFja9ZZ E8WGS5IBCfHYLjJ6GfTA2g QSYzlGSsZRf1e4htvAphOU DtCJD8e1nlYSxzaeVfYL7z zw3rcJq6r7vhqcIxCBIwRM PwhSYBXFNoH3IzwQyzWp2h lLc5qNmsHzicYMA9Olr7AW 7ykl02kxa0lGfmYEOgnsto MwP7EUdxAUGfrowwUTj8HH ifVJPyyEG7FSDasEPfC9Lw POQsAB6rwhf6PUA5XGqjEQ YmXxB5KWJgbDCkTGTahAqr KZfbc515ZND8NiApGI3mV0 Ujl7V2cQ3lcAFuTJXchOVh YdHjYGUfis7lvKVbCItoi4 BsMIB7wrU6wMHwhJCzMBXc SB84Dnleu7HbXcour1EwQ9 6pwJT1ZVffk3pgDC0oCpO7 ltGzVBqkk2nrpG1sAeF3ZL qcLI1jVZ3zRFOjvY0dkitt XHBnYnJkcmhlYWRccGdicm OyHf2rzUdvGQX5WVleW1kq jI3lDgE5TTjuW6lplO1aGJ y3CIkdlCE2DOQygR6lIL1l vdsxf4zfZYoxJOjePCUwam Q3imK2RLUghZVaI0MlxA0d NFJkDV4cpnvdu4hyLOG0KD pdONLfXKF6CpZjQSDfc0Nk hub1BqFqc4DehYWiGTxsT6 7yr090BWPnhjDtE1txhAPe ckrhdXRixwjcMNzsbeN3SW TugbZrc9NsXJPoAKE0CMnb QLtqzHNoNOJzbPnef2fkI6 RscGFyXHBsYWluXGYxXGZz MjBcbGFuZzEwMzNcaGljaF dkCCgoNjIoDHDpXVbsL8ez CgMsH3KaXHVwFeErmYUlK7 ggVGhpcyByZXBvcnQgbWF5 OLsnJ0k1LCRptwZjfUw7nl ZzWzKhESAiXMT6KQdguNXb SOVbf4YltuymqSDxUw3viU IfZPCswT3lQHWwPLEpYEkp SG0ouCj6TSXVfAZfrUNzMz PACZUlDC82zxRcYIBKuijm i4S3UFqtCUBzf5PxnUGiG8 rvm1RqACIaq41rAL7xg6Z3 y3ewFEQ4TF5ze6ZzGWYnoE CpbDTgPTOgk0Fjjgmfx6Yw GLNlyjXhs0KsTCSxftJehG WvIGZickKzqt2dejKiPRLe SYIvD3QiisfhrUbizzLtHB Gmgw6jrvBxBPL6SSCPGNDf XWXxv7EkpV0ewBJNCEF0jS Daio1xtgJEtZJwZIJwds84 AHHdXV9tO7ejPGZcIGAhpz SkvLLgk8ZtKMKgfDG5aDHx UK2DTgLEo51sILQzSUHKgj MaMKPfdMdruTW9rhX0rU3x IChGREEpLlx+IFRoZSBGRE HaSU7rkqHhg1VbtrItaNkl VXWsyJBuf2YlyTPrp7EimU yvq7FxlOSwyYAnEK7cAWMy clxwYXIgVVRNQiBMYWJvcm R0b9AsNIAkVVThANV9dWwv dst8JETviR9oEXQzO2lygs ahEBbdIKPak2PobH0tiCAT qOEur4YuwBHchATZgVNeKD 9bdySfMTuTTUtVOZV3imQv XCXph3UuGXhgC2hzG96ubA gelEz3iBR5JGZ7zP2wCrq+ IFxwYXJccGFyIEFwcHJvcH LzQHKohAfxcbSlV9CduhNq oN8mkHVmxaQsRS1fHY2jR2 M1aSQmXIPeliXcx1crBCbg dmUgYmVlbiByZXZpZXdlZC Iag6AaOMpaZGQ3HOzhljTw bmNsdWRpbmcgSCZFLCBTcG EqyUGbKGE6UHvitvIujqMu ZE5elN8wiBvpzD0fwPQauA W1qbdqYWXbBKQtbOkxYKCl FZ8jmQaotM0iFmDcZlSvPV emTS5eGJHwG2lhpDOkGYGh ZFKvT2kjDlRhlW1wdYkvQM xjZjJcZnMyMFxwYXJccGFy XHBsYWluXGYxXGZzMjBcbG FuZzEwMzNcaGljaFxmMVxk WpEbOKZrPPxpU5qeXkNtS0 FfDFChNsJugHFxA3beWCuf SDJ4XBCyHA8btCEkKJ95fT Tzy7wtYLfsxUmjxw2dS88t xJCyONshpGueDJSbc64ce1 GxONWhthVhqd9xVYWgswA3 zM9xRKQofFiiBFLhfWFyEL Kck4MrTZtbtAXvkdYpLDuo FFBkLOFdwOLaxvL0whJaqp RkgeCsIHLxbBrfEOCws6Jw SZXnUPjmx6Rrwg4rbGEuLA MqrgUHtCpxaCGrbU6yW4Oz DIXcIVNylc2zTZWpgY7cRG ori6RxhynzVZGeKDFhZURt qgKoot7dZDQuzKSTBN0UMO yxiYCyf2PwtjRyH4jTGKG5 NUQwNjYwMjgxKSBleGNlcH NnLJPbmk61AAEljF6naItq XBYiuI9hkG0xjMgezV0gTn ZoHtHhTZyqTC0lIIEnN4cv pRPwOPZjDTRjC2saFtIesK 9jaFxmMVxjZjJcZnMyMFxw YXJ9fQ== Embedded Images (test code = [id number]) [facility] [id number] 19:23:05* Test Item Value Reference Range Interpretation Comme nts Case Report (test code = [id number]) Surgical Pathology ?Case: [id number] ? Authorizing Provider: ?Dominic Keita MD ? [...] HPylori ? Final Diagnosis (test code = [id number]) v3hlkXEgUNWwb1ubAOJnyV FuZzEwMzNcZnRuYmpcdWMx YAkdvlRhBOdvbAesUYC8AU OdMY8aqMhziJy5mKujOGSd zeW7kLVuDWvol7vnGTG7m6 eviajiVFZfDBjaQm0fxSJz zPblUsEmBFJoFXx6dI45ZN TqmU0siZJbUDp9PPImqOZe syJvStIqZDVtpSRuqZX1PF HbTQ7iluzyFBgwWVaqQXUc rdS9QHZfhHKeQ6HqRCPmAA 2gswlaFVY4JLmrXTQvMXM8 VkSaFLZxb9Aquhp7WjLfxA FyZFxwbGFpblxmczIwXHBh rqHHIwQXKH4XIJMVZNFBB8 qPBSDNMX0YAVWHTrpqhLZq TVRlFPUbUSWRXJ4FMEOjA5 zPGxVxKI0VDUIrOMRgbDRi JLZgijPVBgHJDR0RTO3IHD wgQklPUFNZOlxwYXIgICAg HIQsFYgCV5YEFEKmYFYBH9 UAWWlDQTqwYg3qPSGOLG7R W7lCO8HNBCWYFN6WKDktXP EiUAUrIZFvXB6JWWmzFPJK EF0LISGRLENITErPDIWVNH CDCHlGPUGVO5ZFRPaAARWk wznlBSPxLj3sT9GGSEGWAG wgQklPUFNZOlxwYXIgICAg PYTfCRFKN4VLQvYVVL5YD6 1CIVIIDBLSYK0PNUSVLGmZ MY1EWGCMQXLRQRXPS4KbpI FyICAgICAgLSBOTyBFVklE QQ3JAGPIHsARBIsSGIYaHB lTRUFTRVxwYXIgICAgICAt WF0WARqsYYWDIU7VTTLNWv dBTklTTVMgSURFTlRJRklF QHWUBYZWJF4TJg9BMTEZEj xwYXJccGFyfXtccnRmMVxz g8PcE2LzApFkCRoshrHzWW DyVlotmnjaLPMhDHB1hnQp WPByQTynHZSuBNwfXf9deU GwaKltZfCqHOJqg8xwgaLT MFjhMtCwD890LKNuKEswf2 ydm8NtAISnuWIpw0I4FVIH nzpbsSn4s7wtPuCkQhX1aT QeSLpdM0xtveWjiZKyA4Jk gKBxcSz1dVqtL70ty5G4Ni wvM7anZAFlBRShE4GpWY6c GPTtGpv8EOZ3EQO6OBVuPV DwT9NvTU4pHAQpoSToZBa6 n9dshJmqNTYiRWO5d0ehLT xfrnI9YG3ghl9ahEb3s7qa czEgRGVmYXVsdCBQYXJhZ3 SrcQcdPw0cnZv1iTrqOabu ELD3Kci1XQ3pmf73lql8xS poVZWdbhbeDvA1FBroYABy eleiFHs9EWqoILVjhKW1TV CohYUnY1IrWYSrCS2wbxm0 ICW5JSidPUKqBwS6EWNdxL HsYWRbfMoqVNhbu778FDN1 WkZqJE4dL2Ltl0F0uO2qdM CbHVUlwHPiRlVnGZGtan0l eRNaXYeoj5TdZMR9hjB2tS NgsQVzHLMcOK99Dbfaz6Nf DttjTRR2PGJxirWrt7Nut9 dcHiIdybZmH8xwB4QmVPJb AFCrNKLkCfOoylDhj1Vna7 JxcOIkgCg1l7klFXFrXCUg xPoao6jtRXM7BMYnG2I7pP Lnt1mbCNfkRBYycNE3zwN1 TCNdqIFcX3ZesT3mUKCtRT 2rmse9l9ekNIW2WRctFVOo JuF4ifB0PCRdkEGvBZQjtW fbBYyap579HUM3UgUgQDMe u4QkJ9XzgZuuS52sfGvbM4 2yOQRvjFxhtW1mhJrohJ6s ZjBcZnMyNFxxbFxwbGFpbl xmMVxmczIwXGxhbmcxMDMz OAvpF6ouXhUyWHGcfKmgED pzo0HqBVDiZFYyVyfsdjWr XHBhciBJIGhhdmUgcGVyc2 9uYWxseSByZXZpZXdlZCBh tVstv7XtK3fqRD5bI1GvfC BqjqYtgpTlMBmhSWPpm3m3 bVOcwRazv2QkrKInTI05jo JeRBRiUHE1FFYbf6paLF38 rzhbOmAnoK53toUziaAvMO Eir1koR1rgxOSuk7Vbt0Wz kqEtTAoug5EtMS6jmFHiuk zlfHB5HEDdpSMibvMjduZ6 sHeoUWOljR3llA7guHgvhQ 7gLoKbQeFaIJxuBI8zGYJr K7deeVMiORWdJKQoH0qoOq ZpbS1xzUbyEbykndA4YXBy cn19 Clinical Information (test code = [id number]) Shivani Schuler is a 47 year old female with IDA1. Gastric polyp x 6 r/o adenoma2.Duodenal Bx, r/o Celiac disease 3. Gastric Bx r/o HPylori Gross Description (test code = [id number]) l3yivBVlGKNpfMMJXSU7TB GzDJ4dhLstuJd0wCcsUELt mhH9rIZzNFqdp0nwYRB1q8 tvvoGMWwszSXBhII3iIBff CZOqXI3hTaVkGQXoBwWsTZ BhcGVydzEyMjQwXHBhcGVy hHB3DCChIQ5joiucGEdqPG luQWZywhS0RBDnxZZmZ5Zj RIMgNS7nsqhkBNX7ZMCEBu zrVp8ixHLnqChlNkXhTeJz YXJzZXQwXGZuaWwgQXJpYW b5bC4OHcybVZK5DYJVWnew HaosvMysq7YifLHrARRrRE xcaWQgNTEwMDAgXFxkYiBP ChIaTlJ1Ffg5WEQ7OyP5LZ f5BVPFTWOsImkiNZL6LuH8 MSr4MXHeGT4kMLgqvGLcSD hxBoujIYayH664AJhyBQMu G9GyL6JzZEkwWvAoMLxbOT MhOYUlMKihWJCmS6JVUQGz BSD3TpIiDFAtFUd5CSfyE0 MDKKVgTQSkPzT7SRThEqK8 REd4VINASi1wYEmvVcWuZV m3QON7KUs6AbUgBRPwZyUx TLNkTWXtIMsljQXxPC7kaT irRPGuDG9HIQHxJIgkCNQz YqWxA8FSF5eKNM0iDNpekP JjaFxmczIyXHBhciANClxw LIRjTI4HLMVuQBmmJCn3xu ZlYHMoHpEeUWFtV14df7QE p8OmMO0PIEx1buBubmvwrP 8hVHGydwAnUPdZlGNhoI3f nuOIFZqzRURdY6PneuPxFV dhASWsrx1asTqfODiqToQc bGVkIHdpdGggdGhlIHBhdG wkymVaS7C5shAbTA0iHEWQ VZJaeD5yGWWzWJJli1IjrX LhvFujR3HccGZmGpTkn6f8 zBP8SUQjfhKkIQLpqJJcRM Mkwp1zNPdeZdPzE2G5YOGz IGWoi51ghBD9dvIwPvOfkI i7rEEqLNQ6TX2bxTsmpdEg v8s4kI4wPUPvx2W3RSRrx6 Y0IMVebuMeyHXnnQKdWBRs QR4ltxAlJO62RDTvBCgwDX dvEUX5CHJ6RVPclRJru9dh fyznKe7lKOoeUL6mLMryWZ 16EEHrLStuOAFaO2FaI5Q0 XOeeJBTxISWoeEIlsF7efv OhieDpdLe8RNHdNOX6iMMk zItyFUYuVgvwvPN4EUXvFt DalzRsm3BceKk1hOHyZArw PWEcqX8siF6wZCQvLHKnij KOZqnfHVTmBPopq3MkAPcj cGljWHNhMzAgDQpcZXBpY0 6yv7GWo4Ijx0ytnNucq9Pi sPOfHZ0aeBZeOH9Rx9ouBY TodXFrQDL0LUqqv1bzJDgd BOH9SFQhVsUlLDUoXG7ZLz LyUSjfUIu7DUfrNVb6HOw4 DN3VEmMhJKCxZba5SjP2Jw BuWQh9UPznYG8KMWA1ULCe LBDlFYvpMBS2SHGmWMh0RI IgXFxzcyAzIFxcZmwgXFxu K53tbHKsFLfvIgArABavjS mxSEXjJCL5LG8QSUXwTnMn T9ZME8nJQF5bQwmhzpXnRY UhpnTSMkjjWHQfEL3MGPIl WJqdHDf8tgHoFERzHjNaOS QoZ53vx4VQg6FqOU7QEJc6 neKjkushvQ7iOXRvxqEao6 IzMFxlcGljWHNiMzAgDQpT lOVkbI9ubcYCEGorSNEiQ0 EobxGyNPxwPKXlre3xbNfr IGxhYmVsbGVkIHdpdGggdG tiYRNcpEkosdJrJ2S4aoDr ZV5wVKMXUVUyvY3bQXWzDD QvTPQsWMSgpJ4hDBI4t9Mj oeGdAZOSXAUnvUmbQK57dS BjZWxpYWMgZGlzZWFzZSBh qqXestMvm44ucuYym0JgHL 2dlQfcMXjGJRflIaRaRG0r UCYbckQhw7DxOC3pCCNzsF OcSTXvzmdaeYOvWPe5wWEk IPOzElYitQttj7AjSPVpTK ytEW75bjVtZH6cEBigLF1z KRvuVN4tPDVlUROoUJVqRo XqzAZiZsImoOImSaMhZ57i RhBUqFXnh2ZtW8fxSZ6jiD MuRhhstFFgJVCnbJgxy0Fu oBKjZVBpd2DejUFqAEkzAE 9tTXK1Pq0gmBLsRLJyieP8 z1OsOGjzKDFsYcyeZJLiMX bnc3UpQZZzmTQQz9QlKQ7M XHBhciANClxzYTMwXGVwaW XUy9VyNGKODuqjuGscGkOg kAAzOsF7NUGkgOEuGBT4DG 9kmVnpEZCcZJl9HLskDLYg W2TrX6WhZExvMaRyWUsxSA SbDYEwCCknFJYnS4RVEQTs FCB4WzPhXSAwFBq0FKoiK4 VXTFQhOVVaNbE1KKX7ViP8 NCv4NTTWBo0zVAazYpGjVB BvRrG5XLt2IgDvALNiXtOo YYHjQGIcJUeanBQfOL7kaP ueCGGyVNGwAGP7QFPmqEBS w7EdQSLtMDsmXcVvLNSLOV XGOW6PDzIBOOGpIxOacOYo CT8XGQEhmlRtTZxegNivyY 3arEEfH7fnSjIhMfbduYji TmVzdERvYzEgDQpcbHRycG FyXGxpbjBccmluMFxzYjMw KCZbtCCUd7ZvZWNITvJrCI NpbWVuIEMgaXMgcmVjZWl2 DNIfsE2xMj4hfLWcoC8hzI MvNRswTEMaw6k3zSS8dFIs nSF5uJByyNtoIsWbQA6jkW ItMVYBIY59wBLnkoHbOJKf uU7tTMUnFNHlTBH4rwhyYM VLTOI9gJHay9P6LTjjLOG7 wO1owXaaPyGmA4E6BWMtIT Lla57afFY7mbVtBsRpIXBg mv5edK7dXQgaeoIlqJkjll Lps2E2XRFgg0U2VDIzbbRt oLMavRRmAZKcAwU8UHQaLy D7BUDiYAHdgVHtEZEjII6g VGhlIHNwZWNpbWVuIGlzIG QpxBVfxoVmZYQith40F4vw EDFfdN6jy3tiDsGuREGkPA XkzJEwjNS3EMJwoG8nsQ77 abDwteDQGI5moHZmXO2OMS NiMFxlcGljWHNiMCANClxw AEDoIJyeb1GtVKbqlYhsHU JsCyWzEAaMuXqmHGPBI4sr aWOhVTvvCKSHJRhPI4JTNI 8XNUAayHSYNWP1VN1rLTnf LFSeP1BkB4HetdK0l2dqqT hyn2JkpNAwKM9wiVXqTV9Z XHBhcmQgDQp9 Disclaimer (test code = [id number]) a3yilHUjUUNce5ehADAdyZ FuZzEwMzNcZnRuYmpcdWMx PCribnDdGNlxp8VuR4TzKc AwMFxhbnNpXGRlZmxhbmcx XJBwAMR9ahZzGDSeYRgeUH JeHBxmWu1apVEybGtnXrZa KGSee9jlswPGOZzgQgWdE3 28MQGqLRntl2cwe4AlKSIf gKAim7W6JXLMyllpcBm4nC oiD31eu3E0EtwdF7tiGECx QCWhK8JbMO2cTXDjHfn6KB W5FKR0IDCfTOMjE2CjFX5n FAOkyMXpELf0e4lsqMigRZ XtOCT1p0xhJXtuoiWkDY7j in5wsDi3w6xuzcChHUYnXN TtzVAKZHTfL6SzpZlwBs4i mHn5bCorRcvhIGW4Cmr1BC 1nza72pii3lOomELYdlyii ChV8PUjuTTYtmijeKPb4ZE bzTAAnfDE5CURrfSYaF5Yj TNHoVE3cbts3EXS6UEpyBH GtQyT5PTRypQIyEMQjbMbz KSxcw912XWA8DjAuKG6xE6 Zap0Z8gF9raLEsOMXgvDUr ByBsOLIexg8atJDgWKtzp8 MyUWA1yzT9yZUzmJNeSNLm XN13Zipvd1EvPcmhy9UgJ0 1tlFN2GLsfs0vxON0fOvH0 wwLqTJdnu7nvdJ7dJeT7UT nrYE0vZJ0wIIGqgY6kqnwt XHBnYnJkcmhlYWRccGdicm NoTz1anEqkVIB1WAlmU1bv fW4qFoQ5JJphO4bhmD8kSW j1LFwrhEX1UJJseI9nHF3k muuke8jjRXcnLVvsTFSoyx P8drK5VUWpnZYhS3GslG3b EUVlGG4lhdpqh9biRHY7YK soXSDiUSV2SsAjBIDwr0Tp rkz2SqYzi3WuuMBcUErxL5 2sa441BAXwtzUfZ3ufwVBz qeuhvILmgoqxQIvwccX9RU AxnjTid5BbSJRmZAS7REbo PMcftNPnHLSveMqhc5ioZ0 RscGFyXHBsYWluXGYxXGZz MjBcbGFuZzEwMzNcaGljaF ghYRhgUiRaVKXcQQkaN6sb AfQmH1WoADWyRkMprJMtM5 ggVGhpcyByZXBvcnQgbWF5 JFgiI8f3MNCijhSdsGj4dy IaBxFxSMPvXIF1HLkleDPk WUObw9FvqvvzfPTpYa1dcB CyNKPeyU1gGBIzYZKvZNjd QW3szVj6MLPAyISvuWKzGv BMETGaPS16gwRvVVUCfuji a4L4OUigVRVrh0DjlNIaT8 non9KtMXUzb14fJH1kj3Y4 a4muAOG8NG2zw1ZkYEEffW MaiJVmQZLot5Hwygxvl8Er KKSyhpMij0JnBOVlprYvrE GzACRlylAaol8dnpHmXJQq DIEdA9LdwpyveTwdvbXwWF Rzwf9apuNyGRI7XOQJJBAm BEHip5FzjF4neHDSKAS4pI Tgvi2bdmHGhQEhOJPwxi41 HVOvTV5tO5kyZKLuZGUwhl IgaUKei0QyGWGkpQY0fGPb EO0SPaUCt53bTKNiDEKTyt BsYZLdvXsghAX2dfC1hW1i IChGREEpLlx+IFRoZSBGRE TwTM1phkOjz1WzufLhbYzt VJTpfZYqx7TesJCzf5CtsR gtf1YogQWysGBiKW5fUVSw clxwYXIgVVRNQiBMYWJvcm F4g1FxXKEuDILiFCH8sPxo cuj8BFPxqB5qKCJkL9bqzl qcUQlpUIDtz4CiaT4koGFL xHVxp3TufUFjdLTNtROxFZ 2qaiEuCHtNUIiGTCK5fsFx HOFsr4EwKIkoR4tiI14edL uuvBm7uJP5JBM2yF7fCak+ IFxwYXJccGFyIEFwcHJvcH EqDPVqmDphphAoJ7CjgbTd oA2opSUpyhNdDV9wIJ6uB1 I5yNQnCZVjijYdz5wwYNrc dmUgYmVlbiByZXZpZXdlZC Flv9GrUPkeJGJ1WLxylqZv bmNsdWRpbmcgSCZFLCBTcG VvsDBvCYA2SKyxfcWsdgKq TA4bwM9yrJwlzI2weUVnoD T2petmZGStFBXrcSrbTDNx UH0obUbikL4lGhKmScNfVN abLN0dQRKaB6nkkMGrXAEw PLOcA1fnMmSqaJ7seEscMZ xjZjJcZnMyMFxwYXJccGFy XHBsYWluXGYxXGZzMjBcbG FuZzEwMzNcaGljaFxmMVxk SuQiWWRqINhhX0yfNsFfD7 MjKBYnYsMzgWQmP6lgKBxi LSH8NUYyIM2llXZdRI07xB Zun8esKMacbXihnf5vA24o cRSsIKkecXsoXLOav82gp9 EtGLOumlUqqg6wZLGhfeA9 oO1uSGEasQehIYOkpMAdPX Xbq4HuUBsmqSEixsPoMDek IGMjPJQfuNYyojX0fkKcas RzwoKxDNTiqRpjRUDdr0Mz VNKyAMoyz6Rzce5fkWMbDM JyenZAlHtgpHEyoF7yR3Lq YISjPYNjlr7wCUXjuM5eJV isy4BmbbziDDExPLEgQJHj jkLkwx9aBKAbhERIXU1MGC mfuURwi4GkatXgF9iHEZT8 NUQwNjYwMjgxKSBleGNlcH LfEZSfhi71WQPcuM2woIbi KOZngY6jcR3ryFiitC8zYo YqEeDhEGbgRA8rAUUnC7as zWBmODBxKWBwR2btTbGvpX 9jaFxmMVxjZjJcZnMyMFxw YXJ9fQ== Embedded Images (test code = [id number]) [facility] [id number] 19:23:05* Test Item Value Reference Range Interpretation Comme nts Case Report (test code = [id number]) Surgical Pathology ?Case: [id number] ? Authorizing Provider: ?Dominic Keita MD ? [...] HPylori ? Final Diagnosis (test code = [id number]) h6urwXGzIAHmv2tcPEZikF FuZzEwMzNcZnRuYmpcdWMx RRhzmhHlBBydbZssKBM9YC YjCM8cnZwczRf5oWfcERYz qgV5qFEcBUblp0odNJV3z4 mwizwqEBWoJGiuSf5mqMRa mSdyDgRkCDCgVBq0iX47VS DliQ9tdSCyRTo2EUMzeMLb tsVuSvKvTSZxwAXrkQF2PX NxAG9zqxmjFOzgJVpuVBVi hhP7HOZarRWnO2DnMZShRP 5aedouBPO8FYpjXNTtIEV8 XlOfEGYjq1Mkhzc0OqYvkV FyZFxwbGFpblxmczIwXHBh mpZTNdOYJW6HSROUBRYEH4 kCMRSDKA4BERKTUsrqbUBu HRUzMMGqCWETYA7DCEMlB6 yHJaMvNW1NHSVxLANreZMz NFXqnrJQInSHCV8FAC0VRJ wgQklPUFNZOlxwYXIgICAg RFWuHObZN3JAHQVzGPJGP2 PTBWxFFRlnVw1fBMBZHZ6V W1gPG0TPAXBAGS9FZSjsJK NfJYGzLNOzGK3MEEvvIGMT GJ6CPBZHHWNMUSzJMFAOML CZDPyOGSKCN3YNHZoVNHOn seiiKRDzMf2yC1UYPKVAFE wgQklPUFNZOlxwYXIgICAg JDWrVXPKE3YEGxXHBT4GM8 4TFKENGILPLZ6BWEQAFSuN LR0FYYOGQBMIEPMUX4CneB FyICAgICAgLSBOTyBFVklE VW8SNEZEAhNMKBsECRUfCL lTRUFTRVxwYXIgICAgICAt JZ4WHZaiHLXWEA7YGBZYFm dBTklTTVMgSURFTlRJRklF EORBZELSXS1AVy5KXDYJOd xwYXJccGFyfXtccnRmMVxz n7GlX5GaMwXaKKwmbxWePL GbOjyctztiEKIpXBB6faWz SHBaNLprWDNvRCyjZt7iyI HfgPhwCvOhZVQcn3aahdEM WFlsCsHpG803EZLrRZsjj5 ydg6DnCVNteHPds3D1ILBQ qwotdPl2n8olRqPwXbB0oD LpHXhmT1cbmdLedXZhF8Qv dFChpYw6yKftM25vg0V0Xu uzQ9jzIMCfYSDwC6NsYB0x VJEkHjr8BPY4YFB1ZRYjQM KfE6GjCR2zEUWubIQcESq8 x7ezoPiiZLJmQLS8w0qxCT jmzcW1NR5tph9yzXg5x1gl czEgRGVmYXVsdCBQYXJhZ3 BfnAxyHp4gkPq3vYbdXcqq RCU1Gae7MK4ozd92ssi0eF gcDZTgubbeQmL7GOweIGOi jfpbOGk0MYgsTJGoiJV6VX VbuKUlT1EmAUTbPW8kmpo6 IWR2DZihPWLwHxJ5ZHFurX ZiVJZyxHqlKXwqu861KRA2 NqJzEW7mS5Tef2V0vP2jgL QuCQTidYWtJmOyCUCopw9b fAQzSGtua2JfGOZ1hpI9uD IpxIObHYXuEF40Wkdhf9Wl TbtkBLH0NRGzuoZkl3Gus8 kvKeVoltKaI3fqN7RxQFVe PPZtPCFbMzSyawIbz0Mtz6 MwpPGmwHi5r3ksXLJaOLGo aNisf8zsFNQ0JYIzP1R4qK Vwy6vhTHuvXSWtzFB7dzO0 MDZmlGInD6WknN4zUWJkXG 1gvrj7j5rwBVL1DIgiLYWq UoR8fuE5WGFxqUBmOQOowE maJQlsb718QXG1JjRvZVKk q6WkJ1GckRngO83snLpgR3 6iACBznKsjrM5paTvaeU1x ZjBcZnMyNFxxbFxwbGFpbl xmMVxmczIwXGxhbmcxMDMz LRgeX4soXpIgOFCloSbhIX ckz9UrFGWnEJZsGbwwvfTw XHBhciBJIGhhdmUgcGVyc2 9uYWxseSByZXZpZXdlZCBh kEamq9BsO8qjZS6fU1ZruJ TltaVvvyYxIEonSTZgx6h2 zGBgpFmwn4XykREaHV19uf QbINVjPKO2FBCra2gmLG47 dobmZbCndR15dmAdwkCdVI Bze7eiH1kovYCwu4Ubr6On ipFzWDsfi6GcHF8xpKOfdm mlbFF9IIRjzXXutrZeduE4 zSmcXTYjgZ1rgU6ajIwhhO 0pZvArQqWlYKluBJ6kPSTl B6gpySDlNFHaAYWpJ5qcYw EcoX6xzCalFcntniO3QAVn cn19 Clinical Information (test code = [id number]) Shivani Schuler is a 47 year old female with IDA1. Gastric polyp x 6 r/o adenoma2.Duodenal Bx, r/o Celiac disease 3. Gastric Bx r/o HPylori Gross Description (test code = [id number]) w1bhdYJpMYZsuHYYLPU5DX IdRY6nuFmlbGf7dRprDVHh uwT5fXEnYLubf1kkIDA5f4 birtOBQjlfIZVkYM5wMTbk YHIwET0oUdRuONHmInPsVR BhcGVydzEyMjQwXHBhcGVy sVJ0JFPaCE1dadhiINjvWY pzVQQdnlM7SRBxmNJrI5Nh XWYsBN7vfrnsBAD3QQXRFh zlXx5glJLxbWjdJzTtSxNe YXJzZXQwXGZuaWwgQXJpYW p0vI8LMwaxOPR9BOGVVvcj ZemfwBubl0PslWOoZWDiMS xcaWQgNTEwMDAgXFxkYiBP AoMfFhD8Yid7VAU4CpJ3DA k4WBTAVZFuSgukFXE9HkC1 HQn7IDOrJL2tFWvowOQmWX iqQxasBScsX161OPhkKJDp X4AkC3EmPSvxVkVcYVlnDE IkUXMiGSohKJPmM7SDKHCh GCM6SkLwUCSdUXp0YZnwV6 TJNMMiWBEzOaJ0RVYlYaF7 TIz5VPJSOh6vZPlwGdUyHL r7INP1RXu9BqGmWTHvRmUc QHQzSZYwFZukpVClKO5zxC gmACDmWE0NCBZkHSolBDWm DePsP5OTQ6vYJP8lNZxpmX JjaFxmczIyXHBhciANClxw DTUcPJ3WGJIaSBwbALz3xm FiUVDcLnIoYTNxG12si5AM j4KgMM6WQZv6vdGfqgivzU 8qEFMuzbNpEFeSdLGtnM8h baFBJLgnGIPmT7QqofKzPD qsTPOper8rxAtuNBaiLkJm bGVkIHdpdGggdGhlIHBhdG yconKdS1U3exRkAH0yOBTB TUHlkB5yBIUiBYHsz5UijK ViqSqqC4CfcBUtYqAek7v4 uJD9CURaheKjKMBnsMLxLY Eicz5vWKybDcPlD2X6UNZe IERoz68uaHK9vdToYdMzhL f9xSOsNEE2VQ6wgMdjsyJn t1d9hW6eGFAhu5D9XRInk3 G2ANXjeyCkbYXznEYzFAZy UH7thhSdTA44PRKrISflDB fzJSL8KJH7TJIfuUKvt1vq idgdVv9vDXsiGZ6iWGwwQW 53FFAfGCpiGZNdN0KwO0P7 MIicOXJiXDMyxTArkY2zzf UflpOgqRp2PJOlPPB3xWMs kQogPHCsQfxzaXP6SCWtZe YaosYut9RbnNr9wTQzRFqj LJUadC4qsN1aQIFdKZWzpv YONarlPTLhGPehn7QhIMfb cGljWHNhMzAgDQpcZXBpY0 1vg5LVw9Ruy1vpwUrnh7Dh nUImTN3myUUtTJ9Bt4ieLP ZnuZEtZDA1LOxyt8xtBOta CMT8HNKfKyYaCBVnFJ7KGd VoUDdyQYo3TWpfOOt3QFi3 NV9KPgXzXPObFaf7WvB4Yk OvFPj9AZorUG7EANF0DPGe XSXuCNihNPN6DWFdVKy9YO IgXFxzcyAzIFxcZmwgXFxu Z43qvFMxJZykFkZlKVuynF vgKRLtUWY3JK6AKRRmOfVc O9TXX4qINM7yClyzhxBrXZ OnbwNURrzbKIOuLX9JLZLy AGlfEQj8moGlEUAgLyDoXC LiY64pw5KHa1ObOS7PLFh6 pmCsvtniuK0lNOVdrdKfp4 IzMFxlcGljWHNiMzAgDQpT kYBdxQ4njmEDLFjdGXNbA5 PvyjQiBGemBZGboy0jcMwy IGxhYmVsbGVkIHdpdGggdG kmNQFrgBxhqxSsN8X3wkWq YR6iNOCYAQWtiA8jQBYxBA AvLEPlQCKtcN5oBBC7h6Um ahBeYKNZKJJxfVicTR70iO BjZWxpYWMgZGlzZWFzZSBh gdSnhoSmw51rnbPnl5CjOP 9xyDeqSRwRMOpdHwTfZW6y IQYgpdNpb7ZdZC1eKSRgcI NgPDPhwugigNEuCJx0iLXn KHTsHcSciUgfk0HpBZWoXD omBT82emNoGU0zGXovYT7x DVrdCQ2sJRGuLIQjCXJbEi DqmTImFxBqaYBpGbAyV26e ImJPsNNfr8AtG3stIH4usP IyNlfniLMvWVNzwCjsn0Oi dRRpMORrb8CytROlOGrjQR 4zFSV2Ww6erTCbTAXqybY1 w8AxCCbzSGNrBuejBVCnFI ivh9NhFXXaxZJIt2VsBV1Y XHBhciANClxzYTMwXGVwaW MRa9MqAKCFJeqxjHgdMcYw tAMyWxW2VMTdwNWqOYG3LY 7idDcrHDJyUMg7GSckIWQf V8OiW7MhMTsrOpNuGYshME KlXZEqXGsvKCVfX5ZBWJTz UPA7HzKeUOPaJGq0HMrcO4 JJSFVvEKYhHjJ2LNK2NzF7 CYp5AMOBPv6iCSpsLjEuLV UhCzC6RGj4NiPzGWLvPjKr CEGpIDCqDPtksWWyAJ6noX bbAMGoXSGlZWF8WBPaySDC p8LxDYThKAtfEcOwULEGOL YRUP8VCfKXBXFmVjZdsRDd RQ9WLXXfweBuAJtfwZrhtN 2ihWVzZ5zkWcGcJrsqoSeq TmVzdERvYzEgDQpcbHRycG FyXGxpbjBccmluMFxzYjMw PLYpwCDIy4MvYIRPVnBvJY NpbWVuIEMgaXMgcmVjZWl2 OZDsrV0yGo4skWXdzI2dfR CeWGunDKKqq2n1kIJ8uIZo iPD3dIZpjRgiUiReHX7xlV VuTBNHCK22fYNoaiVxHYYm qL1rRKQlKTVdJIN4ddzrVM QMSYH9iNWrz8H9FGwtODH4 cG9yiPfwViWuN5R7AWOhPM Pzr73nxZA5riZrDjNpVTPf wj4beM7zLLjjtuJxjOyfhd Zbh7N4UQZwy8P0SDHcmlBv jNFmzARkXIBsNnM9EUAmXm W4XHUuMGPthKXsFSLtOL5l VGhlIHNwZWNpbWVuIGlzIG FmjMNaymEdDATtwl50R2ms OLKbgM3ku1adBwOjLBCvSN YvoZNbkNA1DFHmaB5scE83 vcQopnREVW0owORcGO5SGQ NiMFxlcGljWHNiMCANClxw OSUgJTytj0EmMXittUczHP VpHrMrKUpWeKmyMRGVN9io kPPtPEbkXZJWOViCY8YDWK 1FQWGmrWYMRNF6OP2lITuv QPJzC1IeI4LnwgC1x9bdmK tjv3GoqSHhGD8xsSOyHG4H XHBhcmQgDQp9 Disclaimer (test code = [id number]) j6swbFKxDWJzu7ugMHDaeA FuZzEwMzNcZnRuYmpcdWMx WAudkwLsQKtmd2RjH6WtDb AwMFxhbnNpXGRlZmxhbmcx OSBlVUA7xjNaBBAqWXkyPQ TxCNddYy9gePFrsMbgHtNl KTVls9rcokNLFYqhIiJkA0 74IMFyUCfju7dhv3QwJDWz pIImm5D9EWTXlcgkoPj0oR axI48ux3M9GvidL0kmGLTy PLVgA4AlMT7jIBEfDac9XV C9JUL6ITAmBRMhR9WtER2m RQOfsRPiONb3k5wurZkiWM IlVMD9x1jbQJwpybTqXA2j mm9ptPb3m8fjytInGQCwJQ BrtREOOBQjS5WtxBgwNt4k uRc8wZixGmpqEVY1Isd6EL 3hbn72jbv7bNkvBGBpsrhe KqR2LLetAOFkhkuzYTs0FK hjKQHtdKH2BTRgzSOkJ5Xk JYKrSY9xhxv6RBN0PRtnSP HcWdV1DDDasYKvBEHdxIjv GIvep963QDL8RxWnWX5bD0 Gax2G2uU6voRVoDCBowEWj EfEuNNZyuf8vjIByHXnqt4 EeAFC1ctR0wJQdoWWmIKYb GS03Rgjbg5WaJkhrm1RjM4 3shPA3NCoth4jlQF4pCiL8 kbWsDNuwb1kvtJ4nIaI6FM ojBQ4rOU7uINUowP2tkilx XHBnYnJkcmhlYWRccGdicm DdOm8xsGshPTJ3DMpvX1yo jR3fMlH7NUwkH8itbM0vLX x1YLwxrYN8PBJhsP7zIP2g yghck9ylDIucTUhaYBMsbd X2rcU0HNHtxZHuS9NdkS6o HGNnOY2aiapio0soIFR7DI peURKhWVU6QtOcYJPew2Xv cfy0BtCzx4VkkATdHMcpK9 6gd767JXLtqnLwY9drgIFw wvttzSQvwnqiJJdfohX6AY FscmJwl3BuDMScTGV1XKic DFyvhILvOPCgzKaeu7puO4 RscGFyXHBsYWluXGYxXGZz MjBcbGFuZzEwMzNcaGljaF lcMZzdWnWwMMOqGJngZ8to QePqW8CvGWMeUtEsqJAiA1 ggVGhpcyByZXBvcnQgbWF5 VMcbG7p7OTIljfSlkWs2ut EbNlBpDDBdZAC9WXihuERu BASeh5CrdnbohKKiZi7trL GeCUOcbC1hYOInXYHmAZzn XB8czIy8GXPHjFYqpTLgMz FIKKClWZ22eiLmRWWPjipc c2M1TLegLHUoj0HaxSDfB5 ufn0NeNZPcl53vDD4bd3J4 l3wlURP4MY8op6BxHYWrsT AgcEBlNSMjx4Xgceyej0Ik CREwoeUft7EjPSCecyPapG AvAUCogfEqtp5docBiALMd HPPeA9EhirggnZmoctYwDU Ezmy0garVsQYB3VZAPXLFy URUwh2MgnF7iuIOIWAC8vU Dkco3dgtAYnGIsNQZlgv88 XRNyOB4eF6zbGSWqCKZljd GhzKFnh0AySZHkvHE5mKLs EA7GFyRHi53qJAPfQVKGcv NsRIXhhEdduYK4hwX1gE6j IChGREEpLlx+IFRoZSBGRE ZwWS6vvjYfq5JxfyWixTmo ALIvwOFlv0AkfQYug6NkbG mku4OppTEgtBSiME3yJOZm clxwYXIgVVRNQiBMYWJvcm U4r5CwLXCjHZVmNCS3hWij jyl5KJNucC1uOXMqF1wrst fsRXvvADKmo4OmpN8prCHI xKRka9CymUWzaIZBfFUuLA 8nzsIkXSnYSHfJIXY6lgXx ZGBtp4YfPGhqA4bjI56dgF gcxCo2mAW9BSW4qC6iSqw+ IFxwYXJccGFyIEFwcHJvcH PoIRZnoDrqmrFuK6ApgqYr nW2bxRPtxmLuZP7iBA2tY6 F1uFYfNKDjwvByn4euSPur dmUgYmVlbiByZXZpZXdlZC Orq3YuJGqlOFN4DAdmmhBa bmNsdWRpbmcgSCZFLCBTcG FkbHNdNZF1CAynedCrwaIg WC0zyV3heJfclO1kdKZthQ Z0zvztMAAyCMAinItrELIs AX2jjOhwoF4oHlIxPhUfCY kiGT8xWKVyJ6gzxVPgKIBn JEHqK0ipUzKjeA3hhDgfXA xjZjJcZnMyMFxwYXJccGFy XHBsYWluXGYxXGZzMjBcbG FuZzEwMzNcaGljaFxmMVxk FcDiCYTkDNrnK1saTwZrX7 GiGXZgBhYvwGYkF7trOGsd QIW8VTXbGM4dhMFhJG60nK Cuz4rkBSnkgJycny0bQ57o iQFsVIurgRugRRKwo87ka6 DwVCVagdGbik9wMXAfkaL0 iI6wPZBdkJpgHZFdbVQmIL Ixx6AdYWysvBKwtkKbECnj MSBfTRXdyESuozS9moIwdf ZcptMuJPSbgUluLQAws1Mt UNEdKQapu2Szbj1fhSQbBA NzaeTAhWxnhBVfeI0cK5Cn IKZmOVUmeq7fACWsqZ5yRE yoz9RojdvbWFOeSYHrVVDy ldHtbd3eORTepWAWQI2FPM uovVSej6RzhtMaP6uJDXU3 NUQwNjYwMjgxKSBleGNlcH YdDVLtar93AJMbiP5ijGlr TWJcjO1rhP8xmEkloF9tDe IuWnRyRTfkHX3hKJTrK4vj uMXcKRHzQWDsG2osXmKsrT 9jaFxmMVxjZjJcZnMyMFxw YXJ9fQ== Embedded Images (test code = [id number]) [facility] [id number] 19:23:05* Test Item Value Reference Range Interpretation Comme nts Case Report (test code = [id number]) Surgical Pathology ?Case: [id number] ? Authorizing Provider: ?Dominic Keita MD ? [...] HPylori ? Final Diagnosis (test code = [id number]) [id number] FuZzEwMzNcZnRuYmpcdWMx EEprazIsMHjrcDezJNL1SP SdJN2whVvttZk6hYlgXLVq zvP7wJObGQdaa6tlKBM9b7 bmerskZGOzQDndCg1efFSo dUjzYzYpDJDxRSn1vO46KJ CavX4dzUQsRCi9GQZhzCVf xwRxFpZgHIUshTQfoQX6TY UxQD7magriWTrqZJcaOEBf ttI1PNVerQAiX3BcGSMbYW 7qxzyiGXB2CMjaTURtTCI9 IzLbVERsu9Gzebl3OyUavT FyZFxwbGFpblxmczIwXHBh qmXUKcEMSU5EBNZEAIILV1 pYKXBNOG9EMQEPQykxiAKu PPGeLSQjKTKDNB3WSMJoV6 fHWtHuWG6NKKAyGKNkcAWb GGPnrnENTqDNZI1WWJ9IIB wgQklPUFNZOlxwYXIgICAg YZHrBBpOJ5PJKBZbAYZAN5 IVQMcOGLdgVx1xOKQMCC6O O6cOF9ADJBWTFO9KYBukAH UjZSXnZVEeQX2YILenDXIF QM8WVYUSUTKFIFdJNIXALO LBEDlMODIHL7WLUNmJYZNl wdcoIKLdZt8xT4APPIUUCO wgQklPUFNZOlxwYXIgICAg MSLxRUSUE5CYIxWBOM5CG3 9VNZJDMFHMYM3QKPISPJjB XW2YRSIXKWJDMGCDZ0TncX FyICAgICAgLSBOTyBFVklE EM9AJYQCTzYHPCmEMGSdRY lTRUFTRVxwYXIgICAgICAt HU7KLFulMHKSTY1IVXUMSq dBTklTTVMgSURFTlRJRklF QJAVJPQVEL7LDh8GBLIXLl xwYXJccGFyfXtccnRmMVxz f1KyY9GeObDlETuscjYyAS WgYehjvqooZLFeBTX8ybVx CIGiLFviAJRuXImgSw0pmM WcbGyyMyFvQJQuj0vynkNZ DGffSmOjS036JNHoGLcte0 qtr9EcQKAihUTjo9F3ZQRU ywgxvOa8o4cuVsNhWaB3uR NqMDxdH3ockwIkoQTzI2Ky mUBtjWf3nYleT22yr0O8Vg jnJ3naDYGyRSUoN7EwNB7c OYTwQvu1TCB1QRY9JFXgTF RjY3HfSE5lTPGvyHWyDRv1 l7ldiWogMVBaDEN1d0xbGC bwgqT9NY9zoi4sxIc8b1cp czEgRGVmYXVsdCBQYXJhZ3 SpxSpaXw8uiGy9jDqfAoar RUQ6Pei4OF6juv63jrc4mG ssOBVojqobVtD7XYlkAJSn dthpHCw8ZXuuUKZafHZ5MM KnpZOoF5NwDSQqYM6ehiz4 CNE3ECmeJSDiJiF7VQNyhK AcKGHqpNovFNgel377MVX8 GhSqHA1mW5Eti6J1nA0txB BgOYNnoXDyCzAdYNMpln5k xUGcLJwqe6PkDIC4wvM2nJ BpvWIeVMBhLU66Fkown1Bi ZoslEHM5DBVmdyZoo5Zwa4 kfMuMsnwZvB1ysC6YjXHBq MQVgAZBhUtLcaoMeg1Eez6 VdjVXebYk9g2seYUKaFEAk jZehg1bgWZR7XXRyY0Z2wJ Lqx6ebZIwcMQJslPA4nuC1 WEOczOLhE6XdmY1hZBVvXL 7eunu9c6ngHFT2NCiuFDSd PrW2gpK4GKXvxXDfMRJrrR fdXMwhf041SMX7OwJvSLKl n3AiB2NozFhaG64pwXtqO8 1aARXucAvwyU3nlXusqB6p ZjBcZnMyNFxxbFxwbGFpbl xmMVxmczIwXGxhbmcxMDMz KDorD5inAiUqDDNvtZioLB mex3WkOIUaTZKaCbvjjkTe XHBhciBJIGhhdmUgcGVyc2 9uYWxseSByZXZpZXdlZCBh yXgxo2TiM8zjUT0wZ3TkiA KywaTsbvUvJJuvXEFqj6g7 cMCgqZmkk7SlvPHnXL24vj PrGNRjIZW4MKDru2dyWK36 mhxdWoYpoM91foYcdvOyGB Atg9byS7erxVXbj0Cvs2Ay jlXqUVrbk1MtMH1bnYYxtw xknZS0FKVlpCDuilOufvR1 pPekNBHonZ7ejQ1dgHvtbY 7gVsEoOfSnKBdtWL7mCVCu Q4awxYJtETSxEFWrZ9giOa DenM0mqHwmSijjcdF9FPXm cn19 Clinical Information (test code = [id number]) Shivani Schuler is a 47 year old female with IDA1. Gastric polyp x 6 r/o adenoma2.Duodenal Bx, r/o Celiac disease 3. Gastric Bx r/o HPylori Gross Description (test code = [id number]) g4rowZZiXQEibYMZSRY4XK EuTG9ggLvmgQs2nNohWBFt keL4fBLuVRvtf5yiGCC9v9 ikisKBQxavVUGjAI3hZAer WCZnGO8yEnEzFRSoSaSmNW BhcGVydzEyMjQwXHBhcGVy dBW4WEStJE8uthrdMWhnKR ilFABndpQ7IKWmhUOaP2In VMLxGR0nasmmVLH4CURTMu spNo5fwVEtkTmyJxExSyJl YXJzZXQwXGZuaWwgQXJpYW b7vT9TPimlAXR8SYYJRwum EskvnIrpm9JxaLJsJCKsNK xcaWQgNTEwMDAgXFxkYiBP VjZdVaH9Hwa8JTJ7DqI1UT d2ZMAEXMBnXdmlRBB5ErC1 UIp1FQOoVE6yHIhynVHiYS xgOfmlLDqzJ892YUhvGNNa M9UaW1WxSXueEtPoOGtsTZ EzRZTqAEgzEQRfY2ZPLHFt WGV8BjDoEASiYJz2BTpwA8 LXGCUrHQIbGwJ8PXXsClM6 DTg0IXBJGd4hUUktWrCfWP p0NWK3ODi4ZeVvHOIjEkAj PCUcQYIyPDqbkROyVI8umT vsBHGsYY2BJMCoWUdsKPGj BlKoN4QWM3lRZX2bLAkffT JjaFxmczIyXHBhciANClxw ACAyJH1TGISiQXqoIDf6cs VkVDWmBkEtJIUoM20iv4UW x0YlFU8IIAa8imFuzhnmnS 6oHIAahvGcEFmPbHCghW3g izYPPLmsPZKoH3XxxpMkLB kpAHRwar5dyIrvSDagTpHb bGVkIHdpdGggdGhlIHBhdG nnqiSeM7P0dgBgME9iGQDA UYQviM2xPNLuPKEeh8ShuO XxsVtlW7FtuYFrNxNep9f3 jTJ6SNHxneHvQCRonFYbIT Fknw1lJVelHeLoZ0Z6EWPh WHGhg47qmHN3urOqQqWdmL i0yUNdGGN2XY9jzEbwpjYo x6q2qB3fESNel0F0OTBya0 V5ALTypcDukFRiqOQcHPAn GC3tqbHjLH84ZAOaULavLT pnZNY9UWV9MZCjtVNkr4ig cytkXz3vGEfwNP6jYWcyNX 32ZGGdQHsoQBZqZ3MlZ3G0 YYriIEDoWPMewUVuvI3zra PrheSwzWe3ZYTnZFF6vEJa bHohZMBlNfrmiIX1DIEvHz HazcIbz1HdiOk3jDIaPTef AWTrxJ6ziC1uRLHwIFEblc OUHoznJDPcTBcrz9BxAWix cGljWHNhMzAgDQpcZXBpY0 9wh1FLr8Izy1pnoXjaw5Ms sUDuKX1tvXErIE3Bg9dpTL EmpFOrRAI9HBjhz3lwNCee BPD7JNSwBwLeZTZaBN2ULa JkGWhcBOz7BAdoWEv5OQg1 XJ7AClJpFAScYut2DnH8Fz QhRKt1JOudJU3MLWM6GPIi IEMfTNcjOKV0UTCgWMb3XG IgXFxzcyAzIFxcZmwgXFxu S70zgXCsOXheIqWvTCwqkD avIGKdGHG4KQ3JDHXdFgKs L4EPZ1bHAC5iFwgvncEdNQ RfzqYDCsjjGCPtGB3IYCHa UHqhXSc8jmUhDAKxDnEyAM IgJ64mv4IGm5BbIL1HJWc8 fdGhklsjbL7dSPPimzUgk5 IzMFxlcGljWHNiMzAgDQpT hGSusL2hkmTOPEcdHZAtT6 JnakAnVZlrDLUduk8gnVau IGxhYmVsbGVkIHdpdGggdG ogCYJzmNcpcfIcP9J0hsRp YF1rKFCHSJAwwB0hUUNkZH PdBOSfJWZoyG0iAHU9o7Ax vhIvKTZXZAUseXkgRT73aQ BjZWxpYWMgZGlzZWFzZSBh jrMtrzOlr87kudCif1GzVP 6eqJagXJbHUNicYzNyRN4d KUJhigBxh2NqUG6uOKQooD QrLDGkmxxnxIUiLIf3mTTw ZHEnMeTtsXpur9QoVVNvXI voLX04vaHwPG2pDBbeTV8q UCmlMY3dUVFhYTXmOECoRc EepYGpKxTqlAHbNbJjI96x UcSZpMTmt4CaD0aaRE9akE RmRtxzdTNaZTYtwWqwv1Mn qAUuJLKqq9MbtITkRIomSC 8cYIT1Re4dlKOlFVNtztB0 y5FzCDvtCOZhOwlnUXWrBR aef7JqIVEdqHXCa2GbEK3N XHBhciANClxzYTMwXGVwaW SYs1XcIPBVLzozvAheHjWw nSZvLkN4BELwwXPbAMB8YV 0opArjMAStUNf3ZGjiNZHi O2BjN8QoERsnZoTtLUlyRJ MbJAEpCIogSLJiH7WEGGHm UJT7IsDjAOLvUBh7HYjpQ5 OEMSJzIQFbYmV6BEE4TmN3 NTa1VGYEHm9mZAamEzIuQW QeOsZ7PZi7RdQpBDQrAsPn ASVsQTWmFLvgiXCwYX5euX feCQBsECVfPYS5CCKryAQS k4ByIOBeABpeQeSvLAWYXC QNLJ6ETsJAVVGgYiVkdLWg EJ0YEYPrgcJnNTifmPmjyL 0aaAZaY0uuKhBbFtzywLgd TmVzdERvYzEgDQpcbHRycG FyXGxpbjBccmluMFxzYjMw RTLsyGLOm2OhBKNWLbRwLA NpbWVuIEMgaXMgcmVjZWl2 XUKjiO1qFa8ezMDpmI4tmN WcTAviHDWnd7o5iGD8bPId ySB8oLSohYxrBnKdZF8fcG IvTTBVGQ36qNTncfDxKCOc mR0bPXHmHJOiUBF9qwxeWG BXLDD0nZBpu0X9NObhTKI2 lF5czDvaUcQyV9C7IDYnAW Vix40fyLU4qbYxMeQnVARv db9wwB2hNLoptdWsrPawtt Ttt2H3CVImr2R3YQIxuoBf cTRjyDNpWUVhEqC2ZSSmTz L0CABxIZCetNSxLYSeEJ4z VGhlIHNwZWNpbWVuIGlzIG OkaVHthfVuOVGlib39P6qk ICSroW1he5ztQsLiTHXcRQ ZxgUGsyAT4TTQxyD7hrK15 xaBozpRTOY3akXGvYV4YPH NiMFxlcGljWHNiMCANClxw IGNjMLfcv0RnLZovxKjfKV ZqIsFzNWuTiYddJCLMO4tn qMMfFRznBOJOKSuWL0LKKZ 9FZSBebYJRHRD1SN8sOInn FMSwQ3TtK4XkdpY4k6qdbJ zsd6DtcJOgPA5duHLfBJ6L XHBhcmQgDQp9 Disclaimer (test code = [id number]) w3xckHAwEOWjw2xaWEHefK FuZzEwMzNcZnRuYmpcdWMx RBnhnkDiTHjrw3VpM5DzTw AwMFxhbnNpXGRlZmxhbmcx AFMkBOR9jgQlQCTmPCtlLA MaEXptTd0gpKWirEppLkWz DJTmv6rkqxVQULfjKlLlB1 17EFMuMRidh2xxn6RpWARu jSYcv9N7AAWXvoovhBv7bV oiU63pv1A2ShcqB2brDWJn AJOdF1RhHE4aAHEuFjk4IX L0OTC2GWUsZDXaW6AbAT9q MBKanYIwRZg3q0mhtAxrGX EcIWL1p3sfTVqdjyJgWR4t vv5kuZd0f4uqjiOoBZNxOE UvrRWZAOEzM2JqfVlsHu8x nXv0kPqdMejeFLD2Csx9YR 5jge89mji5kJvgSQSakaea ZcG4ILcoXYItfyuyTSa9GM xiOCJipCL0PNSggVOyR0Xj ALKoWT4iqmx9UMY7SGoyTB KrMgG3FOOgeAOnYKPjvQgy KXepn092LDP3EsAwZK1zK2 Rcb8M4dB8lgAFmOBQzjMNs OkZqZTYtqh0hpYVzCUicj8 SvEID4tuK6zCYbcRAzQITq QX06Hebay3ZlQfene6UvR9 0guCA7QAnhr8feXE2iOzM3 scKrTPbwo6suuS9cVoW0TR xkPF1tGU5tAZWtkB9vomeq XHBnYnJkcmhlYWRccGdicm ArOp4vjEceXKX6DKovH8ui mP2yTmA0VCerP8ydpA2zMP h3HAycmSF5DVAsrM8jGC6q rtmku9nnYXtzJAcbTUIuqd Q6dpF8YTMnjGVcZ8HveB3b YQQmKS4nuxocc3jkMBB7RJ oaFATtQYL1UqBwVKXqu6Qe sic7HyFpu0EqtLIqWRvdO5 1ky620INBwwqIiJ0msmYQc xztrvTQisfmyWRvutdP2IF LmugSdu2DzGEHaQKT7BDjx SRayoNYmPIKkwUwts3mxJ7 RscGFyXHBsYWluXGYxXGZz MjBcbGFuZzEwMzNcaGljaF ldXVqxRtTmXRKwGYorP3nj OyGmD9FfQGMnZlDyeKCpV6 ggVGhpcyByZXBvcnQgbWF5 MEcyO8u1ECBwjdFvpEf0ot SpRiJaPSTnFDN2SLkmaCPt FONyb0LgbwqtaGJaHs7evH TpTDPclJ1eIMAfHKCvRPfo IY3erEl1AZZDgIPbxSXtNx FYXLWbWF70oaBkHHRJmuhg y3H1NHyxWQFan4AajWEfL4 uyt4QqYEGqo09iTU1ku1Y1 k8ztBOJ8RJ3qu6TaRCKflA YmqLCjOOLov0Nlulbjn8Xp OGGrqaFut0ErJSZxedKnnI ZfQLKmtyNzvq6nahQnABNm WZBiE5SwygiccRgcftQkDI Esjj0mvsBlXSS5KRLZNOLk TEFnc4PsyT4uyRZCNNV8bX Qkvk9lbkKEaEZvPHRxvg51 XYYxCP7rE2lsOLVcJCJmmb XskVQcp4OsVMRkfQG3jFJu CD3WOdKKd99zGKKrJECMem JrGDMnxHvgcMN9ioC3nV4i IChGREEpLlx+IFRoZSBGRE VuHY2pzqBgn8VgbhLehZhn PHZzjZGbw2DydGDgf6HyzD jno3JzxADbsEUhIJ3mCDTk clxwYXIgVVRNQiBMYWJvcm N4c7GeUHHuBVJhJFL2aZtu gff1SQXfqY2tMEElG8wyga laNGwkECQqm8OkhJ6iaLFQ kDDcx1IazQCqmZIMtFBpVP 3wfpHaCJuSLWtOHXH7bjSb TWDqs4XpXLfnY4vrI47ohS dgaDy8vER0LSZ1zI2uVmn+ IFxwYXJccGFyIEFwcHJvcH ZgRIRdrKsaapXjJ3ZjzxDt rE2hfQCvwgWzPY6oRW6tM2 X4mNOzKJSvspBwc5ppVGfv dmUgYmVlbiByZXZpZXdlZC Knc3OpJGrrPLF5HMuoxyNr bmNsdWRpbmcgSCZFLCBTcG OlyMLkLRR4ZEqyvkJpddTi DM9qqK9nwCsktJ1llLMkkW Z8mljwYSNlDCZjbGlpOXAw AK6maDtjyG0oDzAtOuMcYY atMQ6kGTWrM7fbfPNjWCOc ZQWeZ0nzUjYkxD3udBltVF xjZjJcZnMyMFxwYXJccGFy XHBsYWluXGYxXGZzMjBcbG FuZzEwMzNcaGljaFxmMVxk ZdZoDHWvBGxjD2zeTzKtG4 UxICQoFhYenIPhU2elRAlk UXH8SVDvIT4cpNSnUO73hP How9mnJIpaaBfsew2iX16n aQYkDHkmmKhlOIJtb62kq6 TcZGJtkmXdzd5oYKJdctF1 sC1gRWMglJewZJQsuZZxHK Rmh3QtPKjfdRTwcaDeOShe RYUzGWLtoFNnnzB4nrHjeg SgzdZnDCJkgBtwCWAgy8Pk YSKhDNmnr3Pafb7qrCKcHA XgorLFtIbwkWYnxP3nZ9Sd HDKxCKLewd1zHCVykU0rTK qvc7QrilofHXPpVXPdMLQv xaEafe0tCFKmxBAGSL7IRF jgeWTpd9EmduGwM0kIFOE7 NUQwNjYwMjgxKSBleGNlcH FxFVYtot54JHVdeC6anEhs AVPtuY1orY8amWlhiO6bGv IpEfPeGAucXC4eVOPqZ0bg vHZfBDUgGULzV6bfAsPnxA 9jaFxmMVxjZjJcZnMyMFxw YXJ9fQ== Embedded Images (test code = 8802520297) [facility]. METABOLIC PANEL ([id number])2022-11-03 17:25:32* Test Item Value Reference Range Interpretation Comme nts NA (test code = 9696335682) 139 mmol/L 135-145 K (test code = 7146222162) 4.2 mmol/L 3.5-5.0 CL (test code = 2671852321) 105 mmol/L 98-108 CO2 TOTAL (test code = 5802910054) 26 mmol/L 23-31 AGAP (test code = 1641908194) 8 2-16 BUN (test code = 5458058626) 9 mg/dL 7-23 GLUCOSE (test code = 0819612926) 93 mg/dL 70-110 CREATININE (test code = 4799098370) 0.60 mg/dL 0.50-1.04 TOTAL BILI (test code = 0121597826) 0.2 mg/dL 0.1-1.1 CALCIUM (test code = 4618517955) 9.2 mg/dL 8.6-10.6 T PROTEIN (test code = 9411021148) 7.0 g/dL 6.3-8.2 ALBUMIN (test code = 9063593936) 4.2 g/dL 3.5-5.0 ALK PHOS (test code = 8116777902) 118 U/L 34-122 ALTv (test code = 1742-6) 34 U/L 5-35 AST(SGOT) (test code = 8073679648) 34 U/L 13-40 eGFR (test code = 6441931691) 108.1 mL/min/1.73m2 ZAINAB (test code = ZAINAB) [...] or urine or abnormalities in imaging tests). [facility]. METABOLIC PANEL ([id number])2022-11-03 17:25:32* Test Item Value Reference Range Interpretation Comme nts NA (test code = 2538886183) 139 mmol/L 135-145 K (test code = 3462801824) 4.2 mmol/L 3.5-5.0 CL (test code = 2520806315) 105 mmol/L 98-108 CO2 TOTAL (test code = 7053516949) 26 mmol/L 23-31 AGAP (test code = 4821345946) 8 2-16 BUN (test code = 1117735608) 9 mg/dL 7-23 GLUCOSE (test code = 5441055725) 93 mg/dL 70-110 CREATININE (test code = 4804656191) 0.60 mg/dL 0.50-1.04 TOTAL BILI (test code = 1057838910) 0.2 mg/dL 0.1-1.1 CALCIUM (test code = 1655455780) 9.2 mg/dL 8.6-10.6 T PROTEIN (test code = 8790595649) 7.0 g/dL 6.3-8.2 ALBUMIN (test code = 5757303449) 4.2 g/dL 3.5-5.0 ALK PHOS (test code = 5569780141) 118 U/L 34-122 ALTv (test code = 1742-6) 34 U/L 5-35 AST(SGOT) (test code = 9554162897) 34 U/L 13-40 eGFR (test code = 2129286338) 108.1 mL/min/1.73m2 ZAINAB (test code = ZAINAB) [...] or urine or abnormalities in imaging tests). [facility]. METABOLIC PANEL ([id number])2022-11-03 17:25:32* Test Item Value Reference Range Interpretation Comme nts NA (test code = 2114283632) 139 mmol/L 135-145 K (test code = 0345530742) 4.2 mmol/L 3.5-5.0 CL (test code = 8170939420) 105 mmol/L 98-108 CO2 TOTAL (test code = 7642005563) 26 mmol/L 23-31 AGAP (test code = 3022248018) 8 2-16 BUN (test code = 0361555397) 9 mg/dL 7-23 GLUCOSE (test code = 8591188446) 93 mg/dL 70-110 CREATININE (test code = 3514745601) 0.60 mg/dL 0.50-1.04 TOTAL BILI (test code = 3103317005) 0.2 mg/dL 0.1-1.1 CALCIUM (test code = 2776156780) 9.2 mg/dL 8.6-10.6 T PROTEIN (test code = 7429735491) 7.0 g/dL 6.3-8.2 ALBUMIN (test code = 8331175588) 4.2 g/dL 3.5-5.0 ALK PHOS (test code = 6272419707) 118 U/L 34-122 ALTv (test code = 1742-6) 34 U/L 5-35 AST(SGOT) (test code = 2890201460) 34 U/L 13-40 eGFR (test code = 9060398909) 108.1 mL/min/1.73m2 ZAINAB (test code = ZAINAB) [...] or urine or abnormalities in imaging tests). [facility]. METABOLIC PANEL ([id number])2022-11-03 17:25:32* Test Item Value Reference Range Interpretation Comme nts NA (test code = 6537254908) 139 mmol/L 135-145 K (test code = 5143888211) 4.2 mmol/L 3.5-5.0 CL (test code = 2839553665) 105 mmol/L 98-108 CO2 TOTAL (test code = 2307443320) 26 mmol/L 23-31 AGAP (test code = 9134468343) 8 2-16 BUN (test code = 1225297599) 9 mg/dL 7-23 GLUCOSE (test code = 1787503547) 93 mg/dL 70-110 CREATININE (test code = 3572163237) 0.60 mg/dL 0.50-1.04 TOTAL BILI (test code = 8245010136) 0.2 mg/dL 0.1-1.1 CALCIUM (test code = 0655559849) 9.2 mg/dL 8.6-10.6 T PROTEIN (test code = 5994928049) 7.0 g/dL 6.3-8.2 ALBUMIN (test code = 5957930331) 4.2 g/dL 3.5-5.0 ALK PHOS (test code = 9265195335) 118 U/L 34-122 ALTv (test code = 1742-6) 34 U/L 5-35 AST(SGOT) (test code = 6996384020) 34 U/L 13-40 eGFR (test code = 2832087448) 108.1 mL/min/1.73m2 ZAINAB (test code = ZAINAB) [...] or urine or abnormalities in imaging tests). [facility]. METABOLIC PANEL ([id number])2022-11-03 17:25:32* Test Item Value Reference Range Interpretation Comme nts NA (test code = 4376264214) 139 mmol/L 135-145 K (test code = 6999345573) 4.2 mmol/L 3.5-5.0 CL (test code = 1613734710) 105 mmol/L 98-108 CO2 TOTAL (test code = 1780073410) 26 mmol/L 23-31 AGAP (test code = 9059501514) 8 2-16 BUN (test code = 3440839746) 9 mg/dL 7-23 GLUCOSE (test code = 5370442279) 93 mg/dL 70-110 CREATININE (test code = 0930863883) 0.60 mg/dL 0.50-1.04 TOTAL BILI (test code = 7418558714) 0.2 mg/dL 0.1-1.1 CALCIUM (test code = 2195498152) 9.2 mg/dL 8.6-10.6 T PROTEIN (test code = 4245207237) 7.0 g/dL 6.3-8.2 ALBUMIN (test code = 9583693502) 4.2 g/dL 3.5-5.0 ALK PHOS (test code = 0176990845) 118 U/L 34-122 ALTv (test code = 1742-6) 34 U/L 5-35 AST(SGOT) (test code = 3254644120) 34 U/L 13-40 eGFR (test code = 3037299542) 108.1 mL/min/1.73m2 ZAINAB (test code = ZAINAB) [...] or urine or abnormalities in imaging tests). [facility]. METABOLIC PANEL ([id number])2022-11-03 17:25:32* Test Item Value Reference Range Interpretation Comme nts NA (test code = 7195365610) 139 mmol/L 135-145 K (test code = 4137577855) 4.2 mmol/L 3.5-5.0 CL (test code = 9952581874) 105 mmol/L 98-108 CO2 TOTAL (test code = 5821738563) 26 mmol/L 23-31 AGAP (test code = 8088573000) 8 2-16 BUN (test code = 2842301965) 9 mg/dL 7-23 GLUCOSE (test code = 7740650060) 93 mg/dL 70-110 CREATININE (test code = 1970896969) 0.60 mg/dL 0.50-1.04 TOTAL BILI (test code = 5288927299) 0.2 mg/dL 0.1-1.1 CALCIUM (test code = 6446796899) 9.2 mg/dL 8.6-10.6 T PROTEIN (test code = 6983870046) 7.0 g/dL 6.3-8.2 ALBUMIN (test code = 4040153535) 4.2 g/dL 3.5-5.0 ALK PHOS (test code = 5647846895) 118 U/L 34-122 ALTv (test code = 1742-6) 34 U/L 5-35 AST(SGOT) (test code = 0676889416) 34 U/L 13-40 eGFR (test code = 4889582285) 108.1 mL/min/1.73m2 ZAINAB (test code = ZAINAB) [...] or urine or abnormalities in imaging tests). [facility]. METABOLIC PANEL ([id number])2022-11-03 17:25:32* Test Item Value Reference Range Interpretation Comme nts NA (test code = 3938083024) 139 mmol/L 135-145 K (test code = 0081938515) 4.2 mmol/L 3.5-5.0 CL (test code = 6701472745) 105 mmol/L 98-108 CO2 TOTAL (test code = 4492853676) 26 mmol/L 23-31 AGAP (test code = 5980046409) 8 2-16 BUN (test code = 5751895035) 9 mg/dL 7-23 GLUCOSE (test code = 6556854341) 93 mg/dL 70-110 CREATININE (test code = 8898374013) 0.60 mg/dL 0.50-1.04 TOTAL BILI (test code = 0771185403) 0.2 mg/dL 0.1-1.1 CALCIUM (test code = 5566435018) 9.2 mg/dL 8.6-10.6 T PROTEIN (test code = 4699444825) 7.0 g/dL 6.3-8.2 ALBUMIN (test code = 1039401891) 4.2 g/dL 3.5-5.0 ALK PHOS (test code = 6986883650) 118 U/L 34-122 ALTv (test code = 1742-6) 34 U/L 5-35 AST(SGOT) (test code = 3244359462) 34 U/L 13-40 eGFR (test code = 9650037976) 108.1 mL/min/1.73m2 ZAINAB (test code = ZAINAB) [...] or urine or abnormalities in imaging tests). [facility]. METABOLIC PANEL ([id number])2022-11-03 17:25:32* Test Item Value Reference Range Interpretation Comme nts NA (test code = 4533849383) 139 mmol/L 135-145 K (test code = 1255965531) 4.2 mmol/L 3.5-5.0 CL (test code = 3292591846) 105 mmol/L 98-108 CO2 TOTAL (test code = 0838703343) 26 mmol/L 23-31 AGAP (test code = 3658098650) 8 2-16 BUN (test code = 7962047397) 9 mg/dL 7-23 GLUCOSE (test code = 3157688794) 93 mg/dL 70-110 CREATININE (test code = 3122700045) 0.60 mg/dL 0.50-1.04 TOTAL BILI (test code = 1627878914) 0.2 mg/dL 0.1-1.1 CALCIUM (test code = 3622331082) 9.2 mg/dL 8.6-10.6 T PROTEIN (test code = 2388582292) 7.0 g/dL 6.3-8.2 ALBUMIN (test code = 5301284435) 4.2 g/dL 3.5-5.0 ALK PHOS (test code = 4587530478) 118 U/L 34-122 ALTv (test code = 1742-6) 34 U/L 5-35 AST(SGOT) (test code = 9575209765) 34 U/L 13-40 eGFR (test code = 9519271266) 108.1 mL/min/1.73m2 ZAINAB (test code = ZAINAB) [...] or urine or abnormalities in imaging tests). [facility]. METABOLIC PANEL ([id number])2022-11-03 17:25:32* Test Item Value Reference Range Interpretation Comme nts NA (test code = 4931650547) 139 mmol/L 135-145 K (test code = 7424770915) 4.2 mmol/L 3.5-5.0 CL (test code = 8704032728) 105 mmol/L 98-108 CO2 TOTAL (test code = 4169021446) 26 mmol/L 23-31 AGAP (test code = 5002217906) 8 2-16 BUN (test code = 1420930859) 9 mg/dL 7-23 GLUCOSE (test code = 8029961589) 93 mg/dL 70-110 CREATININE (test code = 8503009325) 0.60 mg/dL 0.50-1.04 TOTAL BILI (test code = 8179433731) 0.2 mg/dL 0.1-1.1 CALCIUM (test code = 4300271208) 9.2 mg/dL 8.6-10.6 T PROTEIN (test code = 9339560778) 7.0 g/dL 6.3-8.2 ALBUMIN (test code = 6904262671) 4.2 g/dL 3.5-5.0 ALK PHOS (test code = 0150201263) 118 U/L 34-122 ALTv (test code = 1742-6) 34 U/L 5-35 AST(SGOT) (test code = 5028163470) 34 U/L 13-40 eGFR (test code = 55059-4) 108.1 mL/min/1.73m2 ZAINAB (test code = ZAINAB) [...] or urine or abnormalities in imaging tests). [facility]. METABOLIC PANEL ([id number])2022-11-03 17:25:32* Test Item Value Reference Range Interpretation Comme nts NA (test code = 3166792192) 139 mmol/L 135-145 K (test code = 5978465721) 4.2 mmol/L 3.5-5.0 CL (test code = 4638408489) 105 mmol/L 98-108 CO2 TOTAL (test code = 3282744709) 26 mmol/L 23-31 AGAP (test code = 7416509156) 8 2-16 BUN (test code = 1306303018) 9 mg/dL 7-23 GLUCOSE (test code = 1440638685) 93 mg/dL 70-110 CREATININE (test code = 1498869920) 0.60 mg/dL 0.50-1.04 TOTAL BILI (test code = 5450441182) 0.2 mg/dL 0.1-1.1 CALCIUM (test code = 4633918306) 9.2 mg/dL 8.6-10.6 T PROTEIN (test code = 2103866345) 7.0 g/dL 6.3-8.2 ALBUMIN (test code = 8183471702) 4.2 g/dL 3.5-5.0 ALK PHOS (test code = 7569978687) 118 U/L 34-122 ALTv (test code = 1742-6) 34 U/L 5-35 AST(SGOT) (test code = 4087959387) 34 U/L 13-40 eGFR (test code = 00540-8) 108.1 mL/min/1.73m2 ZAINAB (test code = ZAINAB) [...] or urine or abnormalities in imaging tests). [facility]. METABOLIC PANEL (51553)2022-11-03 17:25:32* Test Item Value Reference Range Interpretation Comme nts NA (test code = 5148844120) 139 mmol/L 135-145 K (test code = 1790066121) 4.2 mmol/L 3.5-5.0 CL (test code = 1748510166) 105 mmol/L 98-108 CO2 TOTAL (test code = 2436256844) 26 mmol/L 23-31 AGAP (test code = 5235505945) 8 2-16 BUN (test code = 0775235378) 9 mg/dL 7-23 GLUCOSE (test code = 4601482313) 93 mg/dL 70-110 CREATININE (test code = 4732761613) 0.60 mg/dL 0.50-1.04 TOTAL BILI (test code = 9494143316) 0.2 mg/dL 0.1-1.1 CALCIUM (test code = 2375995418) 9.2 mg/dL 8.6-10.6 T PROTEIN (test code = 8457066075) 7.0 g/dL 6.3-8.2 ALBUMIN (test code = 7652404605) 4.2 g/dL 3.5-5.0 ALK PHOS (test code = 4910005801) 118 U/L 34-122 ALTv (test code = 1742-6) 34 U/L 5-35 AST(SGOT) (test code = 1136954989) 34 U/L 13-40 eGFR (test code = 35991-2) 108.1 mL/min/1.73m2 ZAINAB (test code = ZAINAB) [...] or urine or abnormalities in imaging tests). [facility]. METABOLIC PANEL ([id number])2022-11-03 17:25:32* Test Item Value Reference Range Interpretation Comme nts NA (test code = 3361284240) 139 mmol/L 135-145 K (test code = 4082914188) 4.2 mmol/L 3.5-5.0 CL (test code = 8557138612) 105 mmol/L 98-108 CO2 TOTAL (test code = 0986843663) 26 mmol/L 23-31 AGAP (test code = 6047069286) 8 2-16 BUN (test code = 7902044191) 9 mg/dL 7-23 GLUCOSE (test code = 3139004332) 93 mg/dL 70-110 CREATININE (test code = 0647780877) 0.60 mg/dL 0.50-1.04 TOTAL BILI (test code = 8100931557) 0.2 mg/dL 0.1-1.1 CALCIUM (test code = 1977436385) 9.2 mg/dL 8.6-10.6 T PROTEIN (test code = 9144784028) 7.0 g/dL 6.3-8.2 ALBUMIN (test code = 6271601771) 4.2 g/dL 3.5-5.0 ALK PHOS (test code = 6569333794) 118 U/L 34-122 ALTv (test code = 1742-6) 34 U/L 5-35 AST(SGOT) (test code = 2479545204) 34 U/L 13-40 eGFR (test code = 28765-4) 108.1 mL/min/1.73m2 ZAINAB (test code = ZAINAB) [...] or urine or abnormalities in imaging tests). [facility]. METABOLIC PANEL ([id number])2022-11-03 17:25:32* Test Item Value Reference Range Interpretation Comme nts NA (test code = 2383547544) 139 mmol/L 135-145 K (test code = 6618966562) 4.2 mmol/L 3.5-5.0 CL (test code = 5416799395) 105 mmol/L 98-108 CO2 TOTAL (test code = 3993719606) 26 mmol/L 23-31 AGAP (test code = 6919985734) 8 2-16 BUN (test code = 1429561461) 9 mg/dL 7-23 GLUCOSE (test code = 7601257105) 93 mg/dL 70-110 CREATININE (test code = 9120983414) 0.60 mg/dL 0.50-1.04 TOTAL BILI (test code = 9849802287) 0.2 mg/dL 0.1-1.1 CALCIUM (test code = 1883930355) 9.2 mg/dL 8.6-10.6 T PROTEIN (test code = 2929748559) 7.0 g/dL 6.3-8.2 ALBUMIN (test code = 6543988379) 4.2 g/dL 3.5-5.0 ALK PHOS (test code = 6962647933) 118 U/L 34-122 ALTv (test code = 1742-6) 34 U/L 5-35 AST(SGOT) (test code = 9908330609) 34 U/L 13-40 eGFR (test code = 18915-5) 108.1 mL/min/1.73m2 ZAINAB (test code = ZAINAB) [...] or urine or abnormalities in imaging tests). [facility]. METABOLIC PANEL (10900)2022-11-03 17:25:32* Test Item Value Reference Range Interpretation Comme nts NA (test code = 4933430664) 139 mmol/L 135-145 K (test code = 5669078327) 4.2 mmol/L 3.5-5.0 CL (test code = 4971791661) 105 mmol/L 98-108 CO2 TOTAL (test code = 2477312582) 26 mmol/L 23-31 AGAP (test code = 8784264904) 8 2-16 BUN (test code = 4269927930) 9 mg/dL 7-23 GLUCOSE (test code = 8318735688) 93 mg/dL 70-110 CREATININE (test code = 6892182924) 0.60 mg/dL 0.50-1.04 TOTAL BILI (test code = 2722808778) 0.2 mg/dL 0.1-1.1 CALCIUM (test code = 6004758898) 9.2 mg/dL 8.6-10.6 T PROTEIN (test code = 6867970329) 7.0 g/dL 6.3-8.2 ALBUMIN (test code = 4299689665) 4.2 g/dL 3.5-5.0 ALK PHOS (test code = 4679915380) 118 U/L 34-122 ALTv (test code = 1742-6) 34 U/L 5-35 AST(SGOT) (test code = 6897935122) 34 U/L 13-40 eGFR (test code = 45599-2) 108.1 mL/min/1.73m2 ZAINAB (test code = ZAINAB) [...] or urine or abnormalities in imaging tests). [facility]. METABOLIC PANEL (62989)2022-11-03 17:25:32* Test Item Value Reference Range Interpretation Comme nts NA (test code = 0067163333) 139 mmol/L 135-145 K (test code = 2064045366) 4.2 mmol/L 3.5-5.0 CL (test code = 6936844273) 105 mmol/L 98-108 CO2 TOTAL (test code = 8466365995) 26 mmol/L 23-31 AGAP (test code = 8753718952) 8 2-16 BUN (test code = 0550316420) 9 mg/dL 7-23 GLUCOSE (test code = 7791016774) 93 mg/dL 70-110 CREATININE (test code = 4915043655) 0.60 mg/dL 0.50-1.04 TOTAL BILI (test code = 1661824809) 0.2 mg/dL 0.1-1.1 CALCIUM (test code = 6861823161) 9.2 mg/dL 8.6-10.6 T PROTEIN (test code = 4223001060) 7.0 g/dL 6.3-8.2 ALBUMIN (test code = 6446321921) 4.2 g/dL 3.5-5.0 ALK PHOS (test code = 4232623670) 118 U/L 34-122 ALTv (test code = 1742-6) 34 U/L 5-35 AST(SGOT) (test code = 1588014098) 34 U/L 13-40 eGFR (test code = 71319-6) 108.1 mL/min/1.73m2 ZAINAB (test code = ZAINAB) [...] or urine or abnormalities in imaging tests). [facility]. METABOLIC PANEL (81589)2022-11-03 17:25:32* Test Item Value Reference Range Interpretation Comme nts NA (test code = 3290734422) 139 mmol/L 135-145 K (test code = 3373361462) 4.2 mmol/L 3.5-5.0 CL (test code = 9569604735) 105 mmol/L 98-108 CO2 TOTAL (test code = 6293507519) 26 mmol/L 23-31 AGAP (test code = 4649209603) 8 2-16 BUN (test code = 5952139961) 9 mg/dL 7-23 GLUCOSE (test code = 6403121208) 93 mg/dL 70-110 CREATININE (test code = 4808394747) 0.60 mg/dL 0.50-1.04 TOTAL BILI (test code = 2071792736) 0.2 mg/dL 0.1-1.1 CALCIUM (test code = 4108512232) 9.2 mg/dL 8.6-10.6 T PROTEIN (test code = 3131108253) 7.0 g/dL 6.3-8.2 ALBUMIN (test code = 6992886041) 4.2 g/dL 3.5-5.0 ALK PHOS (test code = 2048761038) 118 U/L 34-122 ALTv (test code = 1742-6) 34 U/L 5-35 AST(SGOT) (test code = 4328372099) 34 U/L 13-40 eGFR (test code = 55709-9) 108.1 mL/min/1.73m2 ZAINAB (test code = ZAINAB) [...] urine or abnormalities in imaging tests). [facility] ([id number])2022-11-03 17:25:32* Test Item Value Reference Range Interpretation Comme nts NA (test code = 2677270566) 139 mmol/L 135-145 K (test code = 8839043880) 4.2 mmol/L 3.5-5.0 CL (test code = 6928716723) 105 mmol/L 98-108 CO2 TOTAL (test code = 0857656451) 26 mmol/L 23-31 AGAP (test code = 6018477351) 8 2-16 BUN (test code = 0052077669) 9 mg/dL 7-23 GLUCOSE (test code = 7758312633) 93 mg/dL 70-110 CREATININE (test code = 0089661410) 0.60 mg/dL 0.50-1.04 TOTAL BILI (test code = 2264730488) 0.2 mg/dL 0.1-1.1 CALCIUM (test code = 1764705914) 9.2 mg/dL 8.6-10.6 T PROTEIN (test code = 9014304188) 7.0 g/dL 6.3-8.2 ALBUMIN (test code = 4725551344) 4.2 g/dL 3.5-5.0 ALK PHOS (test code = 0956197411) 118 U/L 34-122 ALTv (test code = 1742-6) 34 U/L 5-35 AST(SGOT) (test code = 7212623566) 34 U/L 13-40 eGFR (test code = 45096-8) 108.1 mL/min/1.73m2 ZAINAB (test code = ZAINAB) [...] or urine or abnormalities in imaging tests). [facility]. METABOLIC PANEL (64321)2022-11-03 17:25:32* Test Item Value Reference Range Interpretation Comme nts NA (test code = 8634213112) 139 mmol/L 135-145 K (test code = 7336800370) 4.2 mmol/L 3.5-5.0 CL (test code = 2970592141) 105 mmol/L 98-108 CO2 TOTAL (test code = 0227208798) 26 mmol/L 23-31 AGAP (test code = 2416807762) 8 2-16 BUN (test code = 5397458118) 9 mg/dL 7-23 GLUCOSE (test code = 8721706618) 93 mg/dL 70-110 CREATININE (test code = 4977186080) 0.60 mg/dL 0.50-1.04 TOTAL BILI (test code = 4284539983) 0.2 mg/dL 0.1-1.1 CALCIUM (test code = 7695007737) 9.2 mg/dL 8.6-10.6 T PROTEIN (test code = 5350629288) 7.0 g/dL 6.3-8.2 ALBUMIN (test code = 1109726148) 4.2 g/dL 3.5-5.0 ALK PHOS (test code = 6036470844) 118 U/L 34-122 ALTv (test code = 1742-6) 34 U/L 5-35 AST(SGOT) (test code = 2502362359) 34 U/L 13-40 eGFR (test code = 79102-8) 108.1 mL/min/1.73m2 ZAINAB (test code = ZAINAB) [...] or urine or abnormalities in imaging tests). [facility] WITH [id number] 17:18:52* Test Item Value Reference Range Interpretation Comme nts WBC (test code = 6690-2) 7.41 See_Comment [[employer] The system which generated this result transmitted reference range: 4.30 - 11.10 10*3/?L. The reference range was not used to interpret this result as normal/abnormal. RBC (test code = 789-8) 4.20 See_Comment [[employer] The system which generated this result transmitted [...] g/dL 31.6-35.1 L RDW-SD (test code = 96208-0) 46.2 fL 39.0-49.9 RDW-CV (test code = 788-0) 17.9 % 12.0-15.5 H PLT (test code = 777-3) 304 See_Comment [Automated messa ge] The system which generated this result transmitted reference range: 166 - 358 10*3/?L. The reference range was not used to interpret this result as normal/abnormal. MPV (test code = 32805-3) 11.0 fL 9.5-12.9 NRBC/100 WBC (test code = 8102914387) 0.0 See_Comment [Automated [employer]] The system which generated this result transmitted reference range: 0.0 - 10.0 /100 WBCs. The reference range was not used to interpret this result as normal/abnormal. NRBC x10^3 (test code = 8560317065) See_Comment [Automated [employer]] The system which generated this result transmitted reference range: 10*3/?L. The reference range was not used to interpret this result as normal/abnormal. GRAN MAT (NEUT) % (test code = 770-8) 68.6 % IMM GRAN % (test code = 7122716153) 0.70 % LYMPH % (test code = 736-9) 19.8 % MONO % (test code = 5905-5) 5.3 % EOS % (test code = 713-8) 5.1 % BASO % (test code = 706-2) 0.5 % GRAN MAT x10^3(ANC) (test code = 8279597871) 5.08 10*3/uL 1.88-7.09 IMM GRAN x10^3 (test code = 0882830728) 0.05 10*3/uL 0.00-0.06 LYMPH x10^3 (test code = 731-0) 1.47 10*3/uL 1.32-3.29 MONO x10^3 (test code = 742-7) 0.39 10*3/uL 0.33-0.92 EOS x10^3 (test code = 711-2) 0.38 10*3/uL 0.03-0.39 BASO x10^3 (test code = 704-7) 0.04 10*3/uL 0.01-0.07 Lab Interpretation (test code = 47561-2) Abnormal [facility] WITH [id number] 17:18:52* Test Item Value Reference Range Interpretation [...] g/dL 31.6-35.1 L RDW-SD (test code = 10487-9) 46.2 fL 39.0-49.9 RDW-CV (test code = 788-0) 17.9 % 12.0-15.5 H PLT (test code = 777-3) 304 See_Comment [Automated messa ge] The system which generated this result transmitted reference range: 166 - 358 10*3/?L. The reference range was not used to interpret this result as normal/abnormal. MPV (test code = 41632-6) 11.0 fL 9.5-12.9 NRBC/100 WBC (test code = 4260586614) 0.0 See_Comment [Autom[employer]] The system which generated this result transmitted reference range: 0.0 - 10.0 /100 WBCs. The reference range was not used to interpret this result as normal/abnormal. NRBC x10^3 (test code = 5199801302) See_Comment [Automated messa ge] The system which generated this result transmitted reference range: 10*3/?L. The reference range was not used to interpret this result as normal/abnormal. GRAN MAT (NEUT) % (test code = 770-8) 68.6 % IMM GRAN % (test code = 0223918482) 0.70 % LYMPH % (test code = 736-9) 19.8 % MONO % (test code = 5905-5) 5.3 % EOS % (test code = 713-8) 5.1 % BASO % (test code = 706-2) 0.5 % GRAN MAT x10^3(ANC) (test code = 4820166467) 5.08 10*3/uL 1.88-7.09 IMM GRAN x10^3 (test code = 9110155891) 0.05 10*3/uL 0.00-0.06 LYMPH x10^3 (test code = 731-0) 1.47 10*3/uL 1.32-3.29 MONO x10^3 (test code = 742-7) 0.39 10*3/uL 0.33-0.92 EOS x10^3 (test code = 711-2) 0.38 10*3/uL 0.03-0.39 BASO x10^3 (test code = 704-7) 0.04 10*3/uL 0.01-0.07 Lab Interpretation (test code = 76667-2) Abnormal [facility] WITH [id number] 17:18:52* Test Item Value Reference Range Interpretation [...] g/dL 31.6-35.1 L RDW-SD (test code = 47495-5) 46.2 fL 39.0-49.9 RDW-CV (test code = 788-0) 17.9 % 12.0-15.5 H PLT (test code = 777-3) 304 See_Comment [Automated [employer]] The system which generated this result transmitted reference range: 166 - 358 10*3/?L. The reference range was not used to interpret this result as normal/abnormal. MPV (test code = 29980-8) 11.0 fL 9.5-12.9 NRBC/100 WBC (test code = 9046576730) 0.0 See_Comment [Autom[employer]] The system which generated this result transmitted reference range: 0.0 - 10.0 /100 WBCs. The reference range was not used to interpret this result as normal/abnormal. NRBC x10^3 (test code = 0163354757) See_Comment [Automated [employer]] The system which generated this result transmitted reference range: 10*3/?L. The reference range was not used to interpret this result as normal/abnormal. GRAN MAT (NEUT) % (test code = 770-8) 68.6 % IMM GRAN % (test code = 8670411915) 0.70 % LYMPH % (test code = 736-9) 19.8 % MONO % (test code = 5905-5) 5.3 % EOS % (test code = 713-8) 5.1 % BASO % (test code = 706-2) 0.5 % GRAN MAT x10^3(ANC) (test code = 7534959827) 5.08 10*3/uL 1.88-7.09 IMM GRAN x10^3 (test code = 0058817447) 0.05 10*3/uL 0.00-0.06 LYMPH x10^3 (test code = 731-0) 1.47 10*3/uL 1.32-3.29 MONO x10^3 (test code = 742-7) 0.39 10*3/uL 0.33-0.92 EOS x10^3 (test code = 711-2) 0.38 10*3/uL 0.03-0.39 BASO x10^3 (test code = 704-7) 0.04 10*3/uL 0.01-0.07 Lab Interpretation (test code = 36376-0) Abnormal [facility] WITH [id number] 17:18:52* Test Item Value Reference Range Interpretation Comme nts WBC (test code = 6690-2) 7.41 See_Comment [[employer]] The system which generated this result transmitted reference range: 4.30 - 11.10 10*3/?L. The reference range was not used to interpret this result as normal/abnormal. RBC (test code = 789-8) 4.20 See_Comment [[employer]] The system which generated this result transmitted [...] g/dL 31.6-35.1 L RDW-SD (test code = 22161-4) 46.2 fL 39.0-49.9 RDW-CV (test code = 788-0) 17.9 % 12.0-15.5 H PLT (test code = 777-3) 304 See_Comment [Automated messa ge] The system which generated this result transmitted reference range: 166 - 358 10*3/?L. The reference range was not used to interpret this result as normal/abnormal. MPV (test code = 16690-0) 11.0 fL 9.5-12.9 NRBC/100 WBC (test code = 5828887182) 0.0 See_Comment [Automated me ssage] The system which generated this result transmitted reference range: 0.0 - 10.0 /100 WBCs. The reference range was not used to interpret this result as normal/abnormal. NRBC x10^3 (test code = 4914717516) See_Comment [Automated messa ge] The system which generated this result transmitted reference range: 10*3/?L. The reference range was not used to interpret this result as normal/abnormal. GRAN MAT (NEUT) % (test code = 770-8) 68.6 % IMM GRAN % (test code = 6317167744) 0.70 % LYMPH % (test code = 736-9) 19.8 % MONO % (test code = 5905-5) 5.3 % EOS % (test code = 713-8) 5.1 % BASO % (test code = 706-2) 0.5 % GRAN MAT x10^3(ANC) (test code = 1382628175) 5.08 10*3/uL 1.88-7.09 IMM GRAN x10^3 (test code = 1138590690) 0.05 10*3/uL 0.00-0.06 LYMPH x10^3 (test code = 731-0) 1.47 10*3/uL 1.32-3.29 MONO x10^3 (test code = 742-7) 0.39 10*3/uL 0.33-0.92 EOS x10^3 (test code = 711-2) 0.38 10*3/uL 0.03-0.39 BASO x10^3 (test code = 704-7) 0.04 10*3/uL 0.01-0.07 Lab Interpretation (test code = 54363-2) Abnormal [facility] WITH [id number] 17:18:52* Test Item Value Reference Range Interpretation [...] g/dL 31.6-35.1 L RDW-SD (test code = 66192-7) 46.2 fL 39.0-49.9 RDW-CV (test code = 788-0) 17.9 % 12.0-15.5 H PLT (test code = 777-3) 304 See_Comment [Automated messa ge] The system which generated this result transmitted reference range: 166 - 358 10*3/?L. The reference range was not used to interpret this result as normal/abnormal. MPV (test code = 09849-8) 11.0 fL 9.5-12.9 NRBC/100 WBC (test code = 3395489595) 0.0 See_Comment [Autom[employer]] The system which generated this result transmitted reference range: 0.0 - 10.0 /100 WBCs. The reference range was not used to interpret this result as normal/abnormal. NRBC x10^3 (test code = 8815331830) See_Comment [Automated messa ge] The system which generated this result transmitted reference range: 10*3/?L. The reference range was not used to interpret this result as normal/abnormal. GRAN MAT (NEUT) % (test code = 770-8) 68.6 % IMM GRAN % (test code = 4623046924) 0.70 % LYMPH % (test code = 736-9) 19.8 % MONO % (test code = 5905-5) 5.3 % EOS % (test code = 713-8) 5.1 % BASO % (test code = 706-2) 0.5 % GRAN MAT x10^3(ANC) (test code = 6698870502) 5.08 10*3/uL 1.88-7.09 IMM GRAN x10^3 (test code = 6875650988) 0.05 10*3/uL 0.00-0.06 LYMPH x10^3 (test code = 731-0) 1.47 10*3/uL 1.32-3.29 MONO x10^3 (test code = 742-7) 0.39 10*3/uL 0.33-0.92 EOS x10^3 (test code = 711-2) 0.38 10*3/uL 0.03-0.39 BASO x10^3 (test code = 704-7) 0.04 10*3/uL 0.01-0.07 Lab Interpretation (test code = 41015-0) Abnormal [facility] WITH [id number] 17:18:52* Test Item Value Reference Range Interpretation [...] g/dL 31.6-35.1 L RDW-SD (test code = 72855-3) 46.2 fL 39.0-49.9 RDW-CV (test code = 788-0) 17.9 % 12.0-15.5 H PLT (test code = 777-3) 304 See_Comment [Automated [employer]] The system which generated this result transmitted reference range: 166 - 358 10*3/?L. The reference range was not used to interpret this result as normal/abnormal. MPV (test code = 84524-1) 11.0 fL 9.5-12.9 NRBC/100 WBC (test code = 9068404381) 0.0 See_Comment [[employer]] The system which generated this result transmitted reference range: 0.0 - 10.0 /100 WBCs. The reference range was not used to interpret this result as normal/abnormal. NRBC x10^3 (test code = 1862504050) See_Comment [Automated [employer]] The system which generated this result transmitted reference range: 10*3/?L. The reference range was not used to interpret this result as normal/abnormal. GRAN MAT (NEUT) % (test code = 770-8) 68.6 % IMM GRAN % (test code = 8807439959) 0.70 % LYMPH % (test code = 736-9) 19.8 % MONO % (test code = 5905-5) 5.3 % EOS % (test code = 713-8) 5.1 % BASO % (test code = 706-2) 0.5 % GRAN MAT x10^3(ANC) (test code = 4549229107) 5.08 10*3/uL 1.88-7.09 IMM GRAN x10^3 (test code = 8581559754) 0.05 10*3/uL 0.00-0.06 LYMPH x10^3 (test code = 731-0) 1.47 10*3/uL 1.32-3.29 MONO x10^3 (test code = 742-7) 0.39 10*3/uL 0.33-0.92 EOS x10^3 (test code = 711-2) 0.38 10*3/uL 0.03-0.39 BASO x10^3 (test code = 704-7) 0.04 10*3/uL 0.01-0.07 Lab Interpretation (test code = 71131-5) Abnormal [facility] WITH [id number] 17:18:52* Test Item Value Reference Range Interpretation [...] g/dL 31.6-35.1 L RDW-SD (test code = 74249-1) 46.2 fL 39.0-49.9 RDW-CV (test code = 788-0) 17.9 % 12.0-15.5 H PLT (test code = 777-3) 304 See_Comment [Automated messa ge] The system which generated this result transmitted reference range: 166 - 358 10*3/?L. The reference range was not used to interpret this result as normal/abnormal. MPV (test code = 64065-3) 11.0 fL 9.5-12.9 NRBC/100 WBC (test code = 6187267818) 0.0 See_Comment [Automated me [employer]age] The system which generated this result transmitted reference range: 0.0 - 10.0 /100 WBCs. The reference range was not used to interpret this result as normal/abnormal. NRBC x10^3 (test code = 0861567510) See_Comment [Automated messa ge] The system which generated this result transmitted reference range: 10*3/?L. The reference range was not used to interpret this result as normal/abnormal. GRAN MAT (NEUT) % (test code = 770-8) 68.6 % IMM GRAN % (test code = 3137804225) 0.70 % LYMPH % (test code = 736-9) 19.8 % MONO % (test code = 5905-5) 5.3 % EOS % (test code = 713-8) 5.1 % BASO % (test code = 706-2) 0.5 % GRAN MAT x10^3(ANC) (test code = 2887837166) 5.08 10*3/uL 1.88-7.09 IMM GRAN x10^3 (test code = 7255602834) 0.05 10*3/uL 0.00-0.06 LYMPH x10^3 (test code = 731-0) 1.47 10*3/uL 1.32-3.29 MONO x10^3 (test code = 742-7) 0.39 10*3/uL 0.33-0.92 EOS x10^3 (test code = 711-2) 0.38 10*3/uL 0.03-0.39 BASO x10^3 (test code = 704-7) 0.04 10*3/uL 0.01-0.07 Lab Interpretation (test code = 16913-9) Abnormal [facility] WITH [id number] 17:18:52* Test Item Value Reference Range Interpretation Comme nts WBC (test code = 6690-2) 7.41 See_Comment [Automated messa ge] The system which generated this result transmitted reference range: 4.30 - 11.10 10*3/?L. The reference range was not used to interpret this result as normal/abnormal. RBC (test code = 789-8) 4.20 See_Comment [Automated [employer]] The system which generated this result [...] g/dL 31.6-35.1 L RDW-SD (test code = 30493-8) 46.2 fL 39.0-49.9 RDW-CV (test code = 788-0) 17.9 % 12.0-15.5 H PLT (test code = 777-3) 304 See_Comment [Automated [employer]] The system which generated this result transmitted reference range: 166 - 358 10*3/?L. The reference range was not used to interpret this result as normal/abnormal. MPV (test code = 35357-1) 11.0 fL 9.5-12.9 NRBC/100 WBC (test code = 0713364940) 0.0 See_Comment [[employer]] The system which generated this result transmitted reference range: 0.0 - 10.0 /100 WBCs. The reference range was not used to interpret this result as normal/abnormal. NRBC x10^3 (test code = 4117278353) See_Comment [Automated [employer]] The system which generated this result transmitted reference range: 10*3/?L. The reference range was not used to interpret this result as normal/abnormal. GRAN MAT (NEUT) % (test code = 770-8) 68.6 % IMM GRAN % (test code = 0242393220) 0.70 % LYMPH % (test code = 736-9) 19.8 % MONO % (test code = 5905-5) 5.3 % EOS % (test code = 713-8) 5.1 % BASO % (test code = 706-2) 0.5 % GRAN MAT x10^3(ANC) (test code = 4339234858) 5.08 10*3/uL 1.88-7.09 IMM GRAN x10^3 (test code = 8322231770) 0.05 10*3/uL 0.00-0.06 LYMPH x10^3 (test code = 731-0) 1.47 10*3/uL 1.32-3.29 MONO x10^3 (test code = 742-7) 0.39 10*3/uL 0.33-0.92 EOS x10^3 (test code = 711-2) 0.38 10*3/uL 0.03-0.39 BASO x10^3 (test code = 704-7) 0.04 10*3/uL 0.01-0.07 Lab Interpretation (test code = 97239-3) Abnormal [facility] WITH [id number] 17:18:52* Test Item Value Reference Range Interpretation [...] g/dL 31.6-35.1 L RDW-SD (test code = 09900-3) 46.2 fL 39.0-49.9 RDW-CV (test code = 788-0) 17.9 % 12.0-15.5 H PLT (test code = 777-3) 304 See_Comment [Automated messa ge] The system which generated this result transmitted reference range: 166 - 358 10*3/?L. The reference range was not used to interpret this result as normal/abnormal. MPV (test code = 79360-9) 11.0 fL 9.5-12.9 NRBC/100 WBC (test code = 8372907977) 0.0 See_Comment [Automated [employer] ssage] The system which generated this result transmitted reference range: 0.0 - 10.0 /100 WBCs. The reference range was not used to interpret this result as normal/abnormal. NRBC x10^3 (test code = 4701754877) See_Comment [Automated [employer] ge] The system which generated this result transmitted reference range: 10*3/?L. The reference range was not used to interpret this result as normal/abnormal. GRAN MAT (NEUT) % (test code = 770-8) 68.6 % IMM GRAN % (test code = 9916911023) 0.70 % LYMPH % (test code = 736-9) 19.8 % MONO % (test code = 5905-5) 5.3 % EOS % (test code = 713-8) 5.1 % BASO % (test code = 706-2) 0.5 % GRAN MAT x10^3(ANC) (test code = 8176790213) 5.08 10*3/uL 1.88-7.09 IMM GRAN x10^3 (test code = 6340522055) 0.05 10*3/uL 0.00-0.06 LYMPH x10^3 (test code = 731-0) 1.47 10*3/uL 1.32-3.29 MONO x10^3 (test code = 742-7) 0.39 10*3/uL 0.33-0.92 EOS x10^3 (test code = 711-2) 0.38 10*3/uL 0.03-0.39 BASO x10^3 (test code = 704-7) 0.04 10*3/uL 0.01-0.07 Lab Interpretation (test code = 06746-2) Abnormal [facility] WITH [id number] 17:18:52* Test Item Value Reference Range Interpretation [...] g/dL 31.6-35.1 L RDW-SD (test code = 29958-2) 46.2 fL 39.0-49.9 RDW-CV (test code = 788-0) 17.9 % 12.0-15.5 H PLT (test code = 777-3) 304 See_Comment [Automated messa ge] The system which generated this result transmitted reference range: 166 - 358 10*3/?L. The reference range was not used to interpret this result as normal/abnormal. MPV (test code = 29721-6) 11.0 fL 9.5-12.9 NRBC/100 WBC (test code = 8781894961) 0.0 See_Comment [Automated [employer] ssage] The system which generated this result transmitted reference range: 0.0 - 10.0 /100 WBCs. The reference range was not used to interpret this result as normal/abnormal. NRBC x10^3 (test code = 0346242394) See_Comment [Automated messa ge] The system which generated this result transmitted reference range: 10*3/?L. The reference range was not used to interpret this result as normal/abnormal. GRAN MAT (NEUT) % (test code = 770-8) 68.6 % IMM GRAN % (test code = 3237714682) 0.70 % LYMPH % (test code = 736-9) 19.8 % MONO % (test code = 5905-5) 5.3 % EOS % (test code = 713-8) 5.1 % BASO % (test code = 706-2) 0.5 % GRAN MAT x10^3(ANC) (test code = 3481615668) 5.08 10*3/uL 1.88-7.09 IMM GRAN x10^3 (test code = 5058011273) 0.05 10*3/uL 0.00-0.06 LYMPH x10^3 (test code = 731-0) 1.47 10*3/uL 1.32-3.29 MONO x10^3 (test code = 742-7) 0.39 10*3/uL 0.33-0.92 EOS x10^3 (test code = 711-2) 0.38 10*3/uL 0.03-0.39 BASO x10^3 (test code = 704-7) 0.04 10*3/uL 0.01-0.07 Lab Interpretation (test code = 22509-5) Abnormal [facility] WITH [id number] 17:18:52* Test Item Value Reference Range Interpretation Comme nts WBC (test code = 6690-2) 7.41 See_Comment [Automated [employer] ge] The system which generated this result transmitted reference range: 4.30 - 11.10 10*3/?L. The reference range was not used to interpret this result as normal/abnormal. RBC (test code = 789-8) 4.20 See_Comment [Automated [employer] ge] The system which generated this result [...] g/dL 31.6-35.1 L RDW-SD (test code = 00499-0) 46.2 fL 39.0-49.9 RDW-CV (test code = 788-0) 17.9 % 12.0-15.5 H PLT (test code = 777-3) 304 See_Comment [Automated messa ge] The system which generated this result transmitted reference range: 166 - 358 10*3/?L. The reference range was not used to interpret this result as normal/abnormal. MPV (test code = 10828-5) 11.0 fL 9.5-12.9 NRBC/100 WBC (test code = 8369858913) 0.0 See_Comment [Automated Dragon [employer] ssage] The system which generated this result transmitted reference range: 0.0 - 10.0 /100 WBCs. The reference range was not used to interpret this result as normal/abnormal. NRBC x10^3 (test code = 6624134176) See_Comment [Automated messa ge] The system which generated this result transmitted reference range: 10*3/?L. The reference range was not used to interpret this result as normal/abnormal. GRAN MAT (NEUT) % (test code = 770-8) 68.6 % IMM GRAN % (test code = 3327930885) 0.70 % LYMPH % (test code = 736-9) 19.8 % MONO % (test code = 5905-5) 5.3 % EOS % (test code = 713-8) 5.1 % BASO % (test code = 706-2) 0.5 % GRAN MAT x10^3(ANC) (test code = 9090076271) 5.08 10*3/uL 1.88-7.09 IMM GRAN x10^3 (test code = 4749114678) 0.05 10*3/uL 0.00-0.06 LYMPH x10^3 (test code = 731-0) 1.47 10*3/uL 1.32-3.29 MONO x10^3 (test code = 742-7) 0.39 10*3/uL 0.33-0.92 EOS x10^3 (test code = 711-2) 0.38 10*3/uL 0.03-0.39 BASO x10^3 (test code = 704-7) 0.04 10*3/uL 0.01-0.07 Lab Interpretation (test code = 07115-6) Abnormal [facility] WITH [id number] 17:18:52* Test Item Value Reference Range Interpretation Comme nts WBC (test code = 6690-2) 7.41 See_Comment [Automated [employer] ge] The system which generated this result transmitted reference range: 4.30 - 11.10 10*3/?L. The reference range was not used to interpret this result as normal/abnormal. RBC (test code = 789-8) 4.20 See_Comment [Automated [employer] ge] The system which generated this result [...] g/dL 31.6-35.1 L RDW-SD (test code = 68219-1) 46.2 fL 39.0-49.9 RDW-CV (test code = 788-0) 17.9 % 12.0-15.5 H PLT (test code = 777-3) 304 See_Comment [Automated [employer] ge] The system which generated this result transmitted reference range: 166 - 358 10*3/?L. The reference range was not used to interpret this result as normal/abnormal. MPV (test code = 70134-7) 11.0 fL 9.5-12.9 NRBC/100 WBC (test code = 7333940336) 0.0 See_Comment [Automated me ssage] The system which generated this result transmitted reference range: 0.0 - 10.0 /100 WBCs. The reference range was not used to interpret this result as normal/abnormal. NRBC x10^3 (test code = 5151392773) See_Comment [Automated messa ge] The system which generated this result transmitted reference range: 10*3/?L. The reference range was not used to interpret this result as normal/abnormal. GRAN MAT (NEUT) % (test code = 770-8) 68.6 % IMM GRAN % (test code = 1186339916) 0.70 % LYMPH % (test code = 736-9) 19.8 % MONO % (test code = 5905-5) 5.3 % EOS % (test code = 713-8) 5.1 % BASO % (test code = 706-2) 0.5 % GRAN MAT x10^3(ANC) (test code = 5632369425) 5.08 10*3/uL 1.88-7.09 IMM GRAN x10^3 (test code = 4193521042) 0.05 10*3/uL 0.00-0.06 LYMPH x10^3 (test code = 731-0) 1.47 10*3/uL 1.32-3.29 MONO x10^3 (test code = 742-7) 0.39 10*3/uL 0.33-0.92 EOS x10^3 (test code = 711-2) 0.38 10*3/uL 0.03-0.39 BASO x10^3 (test code = 704-7) 0.04 10*3/uL 0.01-0.07 Lab Interpretation (test code = 51049-4) Abnormal [facility] WITH [id number] 17:18:52* Test Item Value Reference Range Interpretation [...] g/dL 31.6-35.1 L RDW-SD (test code = 38868-6) 46.2 fL 39.0-49.9 RDW-CV (test code = 788-0) 17.9 % 12.0-15.5 H PLT (test code = 777-3) 304 See_Comment [Automated [employer] ge] The system which generated this result transmitted reference range: 166 - 358 10*3/?L. The reference range was not used to interpret this result as normal/abnormal. MPV (test code = 79047-3) 11.0 fL 9.5-12.9 NRBC/100 WBC (test code = 2478802342) 0.0 See_Comment [Automated [employer] ssage] The system which generated this result transmitted reference range: 0.0 - 10.0 /100 WBCs. The reference range was not used to interpret this result as normal/abnormal. NRBC x10^3 (test code = 1777962827) See_Comment [Automated [employer] ge] The system which generated this result transmitted reference range: 10*3/?L. The reference range was not used to interpret this result as normal/abnormal. GRAN MAT (NEUT) % (test code = 770-8) 68.6 % IMM GRAN % (test code = 6459070991) 0.70 % LYMPH % (test code = 736-9) 19.8 % MONO % (test code = 5905-5) 5.3 % EOS % (test code = 713-8) 5.1 % BASO % (test code = 706-2) 0.5 % GRAN MAT x10^3(ANC) (test code = 6603213713) 5.08 10*3/uL 1.88-7.09 IMM GRAN x10^3 (test code = 8198350583) 0.05 10*3/uL 0.00-0.06 LYMPH x10^3 (test code = 731-0) 1.47 10*3/uL 1.32-3.29 MONO x10^3 (test code = 742-7) 0.39 10*3/uL 0.33-0.92 EOS x10^3 (test code = 711-2) 0.38 10*3/uL 0.03-0.39 BASO x10^3 (test code = 704-7) 0.04 10*3/uL 0.01-0.07 Lab Interpretation (test code = 71846-1) Abnormal [facility] WITH [id number] 17:18:52* Test Item Value Reference Range Interpretation Comme nts WBC (test code = 6690-2) 7.41 See_Comment [Automated [employer] ge] The system which generated this result transmitted reference range: 4.30 - 11.10 10*3/?L. The reference range was not used to interpret this result as normal/abnormal. RBC (test code = 789-8) 4.20 See_Comment [Automated [employer] ge] The system which generated this result [...] g/dL 31.6-35.1 L RDW-SD (test code = 23222-5) 46.2 fL 39.0-49.9 RDW-CV (test code = 788-0) 17.9 % 12.0-15.5 H PLT (test code = 777-3) 304 See_Comment [Automated messa ge] The system which generated this result transmitted reference range: 166 - 358 10*3/?L. The reference range was not used to interpret this result as normal/abnormal. MPV (test code = 15761-1) 11.0 fL 9.5-12.9 NRBC/100 WBC (test code = 5801464553) 0.0 See_Comment [Automated me ssage] The system which generated this result transmitted reference range: 0.0 - 10.0 /100 WBCs. The reference range was not used to interpret this result as normal/abnormal. NRBC x10^3 (test code = 8819717647) See_Comment [Automated messa ge] The system which generated this result transmitted reference range: 10*3/?L. The reference range was not used to interpret this result as normal/abnormal. GRAN MAT (NEUT) % (test code = 770-8) 68.6 % IMM GRAN % (test code = 4495492268) 0.70 % LYMPH % (test code = 736-9) 19.8 % MONO % (test code = 5905-5) 5.3 % EOS % (test code = 713-8) 5.1 % BASO % (test code = 706-2) 0.5 % GRAN MAT x10^3(ANC) (test code = 8504524283) 5.08 10*3/uL 1.88-7.09 IMM GRAN x10^3 (test code = 8990481209) 0.05 10*3/uL 0.00-0.06 LYMPH x10^3 (test code = 731-0) 1.47 10*3/uL 1.32-3.29 MONO x10^3 (test code = 742-7) 0.39 10*3/uL 0.33-0.92 EOS x10^3 (test code = 711-2) 0.38 10*3/uL 0.03-0.39 BASO x10^3 (test code = 704-7) 0.04 10*3/uL 0.01-0.07 Lab Interpretation (test code = 86402-0) Abnormal [facility] WITH [id number] 17:18:52* Test Item Value Reference Range Interpretation [...] g/dL 31.6-35.1 L RDW-SD (test code = 06690-2) 46.2 fL 39.0-49.9 RDW-CV (test code = 788-0) 17.9 % 12.0-15.5 H PLT (test code = 777-3) 304 See_Comment [Automated messa ge] The system which generated this result transmitted reference range: 166 - 358 10*3/?L. The reference range was not used to interpret this result as normal/abnormal. MPV (test code = 84861-8) 11.0 fL 9.5-12.9 NRBC/100 WBC (test code = 2114848169) 0.0 See_Comment [Automated Dragon [employer] ssage] The system which generated this result transmitted reference range: 0.0 - 10.0 /100 WBCs. The reference range was not used to interpret this result as normal/abnormal. NRBC x10^3 (test code = 6182769983) See_Comment [Automated messa ge] The system which generated this result transmitted reference range: 10*3/?L. The reference range was not used to interpret this result as normal/abnormal. GRAN MAT (NEUT) % (test code = 770-8) 68.6 % IMM GRAN % (test code = 1628398847) 0.70 % LYMPH % (test code = 736-9) 19.8 % MONO % (test code = 5905-5) 5.3 % EOS % (test code = 713-8) 5.1 % BASO % (test code = 706-2) 0.5 % GRAN MAT x10^3(ANC) (test code = 2897824383) 5.08 10*3/uL 1.88-7.09 IMM GRAN x10^3 (test code = 8140428959) 0.05 10*3/uL 0.00-0.06 LYMPH x10^3 (test code = 731-0) 1.47 10*3/uL 1.32-3.29 MONO x10^3 (test code = 742-7) 0.39 10*3/uL 0.33-0.92 EOS x10^3 (test code = 711-2) 0.38 10*3/uL 0.03-0.39 BASO x10^3 (test code = 704-7) 0.04 10*3/uL 0.01-0.07 Lab Interpretation (test code = 12058-6) Abnormal [facility] WITH [id number] 17:18:52* Test Item Value Reference Range Interpretation [...] g/dL 31.6-35.1 L RDW-SD (test code = 04317-4) 46.2 fL 39.0-49.9 RDW-CV (test code = 788-0) 17.9 % 12.0-15.5 H PLT (test code = 777-3) 304 See_Comment [Automated messa ge] The system which generated this result transmitted reference range: 166 - 358 10*3/?L. The reference range was not used to interpret this result as normal/abnormal. MPV (test code = 10703-5) 11.0 fL 9.5-12.9 NRBC/100 WBC (test code = 5102536939) 0.0 See_Comment [Automated [employer] ssage] The system which generated this result transmitted reference range: 0.0 - 10.0 /100 WBCs. The reference range was not used to interpret this result as normal/abnormal. NRBC x10^3 (test code = 8763713612) See_Comment [Automated messa ge] The system which generated this result transmitted reference range: 10*3/?L. The reference range was not used to interpret this result as normal/abnormal. GRAN MAT (NEUT) % (test code = 770-8) 68.6 % IMM GRAN % (test code = 1657937469) 0.70 % LYMPH % (test code = 736-9) 19.8 % MONO % (test code = 5905-5) 5.3 % EOS % (test code = 713-8) 5.1 % BASO % (test code = 706-2) 0.5 % GRAN MAT x10^3(ANC) (test code = 3951870560) 5.08 10*3/uL 1.88-7.09 IMM GRAN x10^3 (test code = 9337292785) 0.05 10*3/uL 0.00-0.06 LYMPH x10^3 (test code = 731-0) 1.47 10*3/uL 1.32-3.29 MONO x10^3 (test code = 742-7) 0.39 10*3/uL 0.33-0.92 EOS x10^3 (test code = 711-2) 0.38 10*3/uL 0.03-0.39 BASO x10^3 (test code = 704-7) 0.04 10*3/uL 0.01-0.07 Lab Interpretation (test code = 48826-6) Abnormal [facility] WITH [id number] 17:18:52* Test Item Value Reference Range Interpretation [...] g/dL 31.6-35.1 L RDW-SD (test code = 70897-1) 46.2 fL 39.0-49.9 RDW-CV (test code = 788-0) 17.9 % 12.0-15.5 H PLT (test code = 777-3) 304 See_Comment [Automated messa ge] The system which generated this result transmitted reference range: 166 - 358 10*3/?L. The reference range was not used to interpret this result as normal/abnormal. MPV (test code = 93380-6) 11.0 fL 9.5-12.9 NRBC/100 WBC (test code = 1808196598) 0.0 See_Comment [Automated [employer] ssage] The system which generated this result transmitted reference range: 0.0 - 10.0 /100 WBCs. The reference range was not used to interpret this result as normal/abnormal. NRBC x10^3 (test code = 2772416720) See_Comment [Automated messa ge] The system which generated this result transmitted reference range: 10*3/?L. The reference range was not used to interpret this result as normal/abnormal. GRAN MAT (NEUT) % (test code = 770-8) 68.6 % IMM GRAN % (test code = 9212692546) 0.70 % LYMPH % (test code = 736-9) 19.8 % MONO % (test code = 5905-5) 5.3 % EOS % (test code = 713-8) 5.1 % BASO % (test code = 706-2) 0.5 % GRAN MAT x10^3(ANC) (test code = 5646809558) 5.08 10*3/uL 1.88-7.09 IMM GRAN x10^3 (test code = 1170282654) 0.05 10*3/uL 0.00-0.06 LYMPH x10^3 (test code = 731-0) 1.47 10*3/uL 1.32-3.29 MONO x10^3 (test code = 742-7) 0.39 10*3/uL 0.33-0.92 EOS x10^3 (test code = 711-2) 0.38 10*3/uL 0.03-0.39 BASO x10^3 (test code = 704-7) 0.04 10*3/uL 0.01-0.07 Lab Interpretation (test code = 88997-6) Abnormal [facility] WITH [id number] 17:18:52* Test Item Value Reference Range Interpretation [...] g/dL 31.6-35.1 L RDW-SD (test code = 94905-1) 46.2 fL 39.0-49.9 RDW-CV (test code = 788-0) 17.9 % 12.0-15.5 H PLT (test code = 777-3) 304 See_Comment [Automated messa ge] The system which generated this result transmitted reference range: 166 - 358 10*3/?L. The reference range was not used to interpret this result as normal/abnormal. MPV (test code = 65341-3) 11.0 fL 9.5-12.9 NRBC/100 WBC (test code = 3674465583) 0.0 See_Comment [Automated Dragon [employer] ssage] The system which generated this result transmitted reference range: 0.0 - 10.0 /100 WBCs. The reference range was not used to interpret this result as normal/abnormal. NRBC x10^3 (test code = 5041479452) See_Comment [Automated messa ge] The system which generated this result transmitted reference range: 10*3/?L. The reference range was not used to interpret this result as normal/abnormal. GRAN MAT (NEUT) % (test code = 770-8) 68.6 % IMM GRAN % (test code = 1397875629) 0.70 % LYMPH % (test code = 736-9) 19.8 % MONO % (test code = 5905-5) 5.3 % EOS % (test code = 713-8) 5.1 % BASO % (test code = 706-2) 0.5 % GRAN MAT x10^3(ANC) (test code = 9320147975) 5.08 10*3/uL 1.88-7.09 IMM GRAN x10^3 (test code = 1006537301) 0.05 10*3/uL 0.00-0.06 LYMPH x10^3 (test code = 731-0) 1.47 10*3/uL 1.32-3.29 MONO x10^3 (test code = 742-7) 0.39 10*3/uL 0.33-0.92 EOS x10^3 (test code = 711-2) 0.38 10*3/uL 0.03-0.39 BASO x10^3 (test code = 704-7) 0.04 10*3/uL 0.01-0.07 Lab Interpretation (test code = 00883-1) Abnormal [facility] [id number] 16:24:00* Test Item Value Reference Range Interpretation Comme nts POCT PREG (test code = 1605) Negative On board controls acceptable with C Line (test code = 3574) Yes POCT PREG LOT # (test code = 3575) [id number] POCT PREG TEST DATE ( test code = 3576) 04-11-2024 Lab Interpretation (test cod e = 24838-3) Normal [facility] [id number] 16:24:00* Test Item Value Reference Range Interpretation Comme nts POCT PREG (test code = 1605) Negative On board controls acceptable with C Line (test code = 3574) Yes POCT PREG LOT # (test code = 3575) [id number] POCT PREG TEST DATE ( test code = 3576) 04-11-2024 Lab Interpretation (test cod e = 30144-4) Normal [facility] [id number] 16:24:00* Test Item Value Reference Range Interpretation Comme nts POCT PREG (test code = 1605) Negative On board controls acceptable with C Line (test code = 3574) Yes POCT PREG LOT # (test code = 3575) 841021 POCT PREG TEST DATE ( test code = 3576) 04-11-2024 Lab Interpretation (test cod e = 67293-3) Normal [facility] [id number] 16:24:00* Test Item Value Reference Range Interpretation Comme nts POCT PREG (test code = 1605) Negative On board controls acceptable with C Line (test code = 3574) Yes POCT PREG LOT # (test code = 3575) 106573 POCT PREG TEST DATE ( test code = 3576) 04-11-2024 Lab Interpretation (test cod e = 13979-7) [facility] [id number] 16:24:00* Test Item Value Reference Range Interpretation Comme nts POCT PREG (test code = 1605) Negative On board controls acceptable with C Line (test code = 3574) Yes POCT PREG LOT # (test code = 3575) [id number] POCT PREG TEST DATE ( test code = 3576) 04-11-2024 Lab Interpretation (test cod e = 39066-7) [facility] [id number] 16:24:00* Test Item Value Reference Range Interpretation Comme nts POCT PREG (test code = 1605) Negative On board controls acceptable with C Line (test code = 3574) Yes POCT PREG LOT # (test code = 3575) 126549 POCT PREG TEST DATE ( test code = 3576) 04-11-2024 Lab Interpretation (test cod e = 52557-9) [facility] [id number] 16:24:00* Test Item Value Reference Range Interpretation Comme nts POCT PREG (test code = 1605) Negative On board controls acceptable with C Line (test code = 3574) Yes POCT PREG LOT # (test code = 3575) 542305 POCT PREG TEST DATE ( test code = 3576) 04-11-2024 Lab Interpretation (test cod e = 91155-3) [facility] [id number] 16:24:00* Test Item Value Reference Range Interpretation Comme nts POCT PREG (test code = 1605) Negative On board controls acceptable with C Line (test code = 3574) Yes POCT PREG LOT # (test code = 3575) [id number] POCT PREG TEST DATE ( test code = 3576) 04-11-2024 Lab Interpretation (test cod e = 27451-8) [facility] [id number] 16:24:00* Test Item Value Reference Range Interpretation Comme nts POCT PREG (test code = 1605) Negative On board controls acceptable with C Line (test code = 3574) Yes POCT PREG LOT # (test code = 3575) 595018 POCT PREG TEST DATE ( test code = 3576) 04-11-2024 Lab Interpretation (test cod e = 39806-3) Normal [facility] [id number] 16:24:00* Test Item Value Reference Range Interpretation Comme nts POCT PREG (test code = 1605) Negative On board controls acceptable with C Line (test code = 3574) Yes POCT PREG LOT # (test code = 3575) 256807 POCT PREG TEST DATE ( test code = 3576) 04-11-2024 Lab Interpretation (test cod e = 09654-7) [facility] [id number] 16:24:00* Test Item Value Reference Range Interpretation Comme nts POCT PREG (test code = 1605) Negative On board controls acceptable with C Line (test code = 3574) Yes POCT PREG LOT # (test code = 3575) 587119 POCT PREG TEST DATE ( test code = 3576) 04-11-2024 Lab Interpretation (test cod e = 67635-6) [facility] [id number] 16:24:00* Test Item Value Reference Range Interpretation Comme nts POCT PREG (test code = 1605) Negative On board controls acceptable with C Line (test code = 3574) Yes POCT PREG LOT # (test code = 3575) 051457 POCT PREG TEST DATE ( test code = 3576) 04-11-2024 Lab Interpretation (test cod e = 21039-0) Normal [facility] [id number] 16:24:00* Test Item Value Reference Range Interpretation Comme nts POCT PREG (test code = 1605) Negative On board controls acceptable with C Line (test code = 3574) Yes POCT PREG LOT # (test code = 3575) [id number] POCT PREG TEST DATE ( test code = 3576) 04-11-2024 Lab Interpretation (test cod e = 07272-0) [facility] [id number] 16:24:00* Test Item Value Reference Range Interpretation Comme nts POCT PREG (test code = 1605) Negative On board controls acceptable with C Line (test code = 3574) Yes POCT PREG LOT # (test code = 3575) 714175 POCT PREG TEST DATE ( test code = 3576) 04-11-2024 Lab Interpretation (test cod e = 55500-2) [facility] [id number] 16:24:00* Test Item Value Reference Range Interpretation Comme nts POCT PREG (test code = 1605) Negative On board controls acceptable with C Line (test code = 3574) Yes POCT PREG LOT # (test code = 3575) 214986 POCT PREG TEST DATE ( test code = 3576) 04-11-2024 Lab Interpretation (test cod e = 90320-5) [facility] [id number] 16:24:00* Test Item Value Reference Range Interpretation Comme nts POCT PREG (test code = 1605) Negative On board controls acceptable with C Line (test code = 3574) Yes POCT PREG LOT # (test code = 3575) 055456 POCT PREG TEST DATE ( test code = 3576) 04-11-2024 Lab Interpretation (test cod e = 33876-8) [facility] [id number] 16:24:00* Test Item Value Reference Range Interpretation Comme nts POCT PREG (test code = 1605) Negative On board controls acceptable with C Line (test code = 3574) Yes POCT PREG LOT # (test code = 3575) 776957 POCT PREG TEST DATE ( test code = 3576) 04-11-2024 Lab Interpretation (test cod e = 44801-3) [facility] [id number] 16:24:00* Test Item Value Reference Range Interpretation Comme nts POCT PREG (test code = 1605) Negative On board controls acceptable with C Line (test code = 3574) Yes POCT PREG LOT # (test code = 3575) 657918 POCT PREG TEST DATE ( test code = 3576) 04-11-2024 Lab Interpretation (test cod e = 62057-7) Normal [facility] ONLY CELIAC SCREEN [id number] 19:09:14 * Test Item Value Reference Range Interpretation Comme nts Tissue Transglutaminase (tTG) Ab, IgA Interpretation (test code = 30422-4) Negative Negative Deamidated Gliadin Peptide (DGP) Ab, IgA Interpretation (test code = 34611-1) Negative Negative Tissue Transglutaminase (tTG) Ab, IgA (test code = 0630878460) <=7.0 Deamidated Gliadin Peptide (DGP) Ab, IgA (test code = 1603132929) 0.4 U/mL <=7.0 ZAINAB (test code = ZAINAB) < 7 U/mL ? Negative7 - 10 U/mL ?Equivocal> 10 U/mL ?Positive In case of equivocal results, we recommend to retest the patient after 8 -12 weeks. Lab Interpretation (test code = 63948-2) Normal [facility] ONLY CELIAC SCREEN [id number] 19:09:14 * Test Item Value Reference Range Interpretation Comme nts Tissue Transglutaminase (tTG) Ab, IgA Interpretation (test code = 33654-5) Negative Negative Deamidated Gliadin Peptide (DGP) Ab, IgA Interpretation (test code = 00055-9) Negative Negative Tissue Transglutaminase (tTG) Ab, IgA (test code = 9259610279) <=7.0 Deamidated Gliadin Peptide (DGP) Ab, IgA (test code = 0774192346) 0.4 U/mL <=7.0 ZAINAB (test code = ZAINAB) < 7 U/mL ? Negative7 - 10 U/mL ?Equivocal> 10 U/mL ?Positive In case of equivocal results, we recommend to retest the patient after 8 -12 weeks. Lab Interpretation (test code = 22682-1) Normal [facility] ONLY CELIAC SCREEN [id number] 19:09:14 * Test Item Value Reference Range Interpretation Comme nts Tissue Transglutaminase (tTG) Ab, IgA Interpretation (test code = 98551-8) Negative Negative Deamidated Gliadin Peptide (DGP) Ab, IgA Interpretation (test code = 70390-4) Negative Negative Tissue Transglutaminase (tTG) Ab, IgA (test code = 6349840981) <=7.0 Deamidated Gliadin Peptide (DGP) Ab, IgA (test code = 2084398299) 0.4 U/mL <=7.0 ZAINAB (test code = ZAINAB) < 7 U/mL ? Negative7 - 10 U/mL ?Equivocal> 10 U/mL ?Positive In case of equivocal results, we recommend to retest the patient after 8 -12 weeks. Lab Interpretation (test code = 03247-3) Normal [facility] ONLY CELIAC SCREEN [id number] 19:09:14 * Test Item Value Reference Range Interpretation Comme nts Tissue Transglutaminase (tTG) Ab, IgA Interpretation (test code = 91234-4) Negative Negative Deamidated Gliadin Peptide (DGP) Ab, IgA Interpretation (test code = 49753-0) Negative Negative Tissue Transglutaminase (tTG) Ab, IgA (test code = 5098033953) <=7.0 Deamidated Gliadin Peptide (DGP) Ab, IgA (test code = 9756376929) 0.4 U/mL <=7.0 ZAINAB (test code = ZAINAB) < 7 U/mL ? Negative7 - 10 U/mL ?Equivocal> 10 U/mL ?Positive In case of equivocal results, we recommend to retest the patient after 8 -12 weeks. Lab Interpretation (test code = 81592-4) Normal [facility] ONLY CELIAC SCREEN [id number] 19:09:14 * Test Item Value Reference Range Interpretation Comme nts Tissue Transglutaminase (tTG) Ab, IgA Interpretation (test code = 91054-5) Negative Negative Deamidated Gliadin Peptide (DGP) Ab, IgA Interpretation (test code = 80919-5) Negative Negative Tissue Transglutaminase (tTG) Ab, IgA (test code = 8913837961) <=7.0 Deamidated Gliadin Peptide (DGP) Ab, IgA (test code = 9029250666) 0.4 U/mL <=7.0 ZAINAB (test code = ZAINAB) < 7 U/mL ? Negative7 - 10 U/mL ?Equivocal> 10 U/mL ?Positive In case of equivocal results, we recommend to retest the patient after 8 -12 weeks. Lab Interpretation (test code = 63816-1) Normal [facility] ONLY CELIAC SCREEN [id number] 19:09:14 * Test Item Value Reference Range Interpretation Comme nts Tissue Transglutaminase (tTG) Ab, IgA Interpretation (test code = 91770-8) Negative Negative Deamidated Gliadin Peptide (DGP) Ab, IgA Interpretation (test code = 96469-8) Negative Negative Tissue Transglutaminase (tTG) Ab, IgA (test code = 1869327023) <=7.0 Deamidated Gliadin Peptide (DGP) Ab, IgA (test code = 2496666501) 0.4 U/mL <=7.0 ZAINAB (test code = ZAINAB) < 7 U/mL ? Negative7 - 10 U/mL ?Equivocal> 10 U/mL ?Positive In case of equivocal results, we recommend to retest the patient after 8 -12 weeks. Lab Interpretation (test code = 00177-6) Normal [facility] ONLY CELIAC SCREEN [id number] 19:09:14 * Test Item Value Reference Range Interpretation Comme nts Tissue Transglutaminase (tTG) Ab, IgA Interpretation (test code = 86612-9) Negative Negative Deamidated Gliadin Peptide (DGP) Ab, IgA Interpretation (test code = 09353-9) Negative Negative Tissue Transglutaminase (tTG) Ab, IgA (test code = 9868359217) <=7.0 Deamidated Gliadin Peptide (DGP) Ab, IgA (test code = 2429181921) 0.4 U/mL <=7.0 ZAINAB (test code = ZAINAB) < 7 U/mL ? Negative7 - 10 U/mL ?Equivocal> 10 U/mL ?Positive In case of equivocal results, we recommend to retest the patient after 8 -12 weeks. Lab Interpretation (test code = 30051-0) Normal [facility] ONLY CELIAC SCREEN [id number] 19:09:14 * Test Item Value Reference Range Interpretation Comme nts Tissue Transglutaminase (tTG) Ab, IgA Interpretation (test code = 50959-1) Negative Negative Deamidated Gliadin Peptide (DGP) Ab, IgA Interpretation (test code = 50869-9) Negative Negative Tissue Transglutaminase (tTG) Ab, IgA (test code = 3435182608) <=7.0 Deamidated Gliadin Peptide (DGP) Ab, IgA (test code = 6397443954) 0.4 U/mL <=7.0 ZAINAB (test code = ZAINAB) < 7 U/mL ? Negative7 - 10 U/mL ?Equivocal> 10 U/mL ?Positive In case of equivocal results, we recommend to retest the patient after 8 -12 weeks. Lab Interpretation (test code = 66591-0) Normal [facility] ONLY CELIAC SCREEN [id number] 19:09:14 * Test Item Value Reference Range Interpretation Comme nts Tissue Transglutaminase (tTG) Ab, IgA Interpretation (test code = 52355-1) Negative Negative Deamidated Gliadin Peptide (DGP) Ab, IgA Interpretation (test code = 78281-7) Negative Negative Tissue Transglutaminase (tTG) Ab, IgA (test code = 8374753763) <=7.0 Deamidated Gliadin Peptide (DGP) Ab, IgA (test code = 3518071034) 0.4 U/mL <=7.0 ZAINAB (test code = ZAINAB) < 7 U/mL ? Negative7 - 10 U/mL ?Equivocal> 10 U/mL ?Positive In case of equivocal results, we recommend to retest the patient after 8 -12 weeks. Lab Interpretation (test code = 13360-4) Normal [facility] ONLY CELIAC SCREEN [id number] 19:09:14 * Test Item Value Reference Range Interpretation Comme nts Tissue Transglutaminase (tTG) Ab, IgA Interpretation (test code = 41393-7) Negative Negative Deamidated Gliadin Peptide (DGP) Ab, IgA Interpretation (test code = 42125-2) Negative Negative Tissue Transglutaminase (tTG) Ab, IgA (test code = 8291247188) <=7.0 Deamidated Gliadin Peptide (DGP) Ab, IgA (test code = 5840112633) 0.4 U/mL <=7.0 ZAINAB (test code = ZAINAB) < 7 U/mL ? Negative7 - 10 U/mL ?Equivocal> 10 U/mL ?Positive In case of equivocal results, we recommend to retest the patient after 8 -12 weeks. Lab Interpretation (test code = 88962-5) Normal [facility] ONLY CELIAC SCREEN [id number] 19:09:14 * Test Item Value Reference Range Interpretation Comme nts Tissue Transglutaminase (tTG) Ab, IgA Interpretation (test code = 02034-3) Negative Negative Deamidated Gliadin Peptide (DGP) Ab, IgA Interpretation (test code = 29300-1) Negative Negative Tissue Transglutaminase (tTG) Ab, IgA (test code = 4322475499) <=7.0 Deamidated Gliadin Peptide (DGP) Ab, IgA (test code = 4691870805) 0.4 U/mL <=7.0 ZAINAB (test code = ZAINAB) < 7 U/mL ? Negative7 - 10 U/mL ?Equivocal> 10 U/mL ?Positive In case of equivocal results, we recommend to retest the patient after 8 -12 weeks. Lab Interpretation (test code = 58969-7) Normal [facility] ONLY CELIAC SCREEN [id number] 19:09:14 * Test Item Value Reference Range Interpretation Comme nts Tissue Transglutaminase (tTG) Ab, IgA Interpretation (test code = 39874-1) Negative Negative Deamidated Gliadin Peptide (DGP) Ab, IgA Interpretation (test code = 64625-3) Negative Negative Tissue Transglutaminase (tTG) Ab, IgA (test code = 8104133036) <=7.0 Deamidated Gliadin Peptide (DGP) Ab, IgA (test code = 1351471252) 0.4 U/mL <=7.0 ZAINAB (test code = ZAINAB) < 7 U/mL ? Negative7 - 10 U/mL ?Equivocal> 10 U/mL ?Positive In case of equivocal results, we recommend to retest the patient after 8 -12 weeks. Lab Interpretation (test code = 81624-9) Normal [facility] [id number] 20:24:44* Test Item Value Reference Range Interpretation Comme nts Total IgA (test code = 8367734151) 78.3 U/mL 70-312 Lab Interpretation (test cod e = 11477-5) Normal [facility] [id number] 20:24:44* Test Item Value Reference Range Interpretation Comme nts Total IgA (test code = 4156550628) 78.3 U/mL 70-312 Lab Interpretation (test cod e = 93647-5) Normal [facility]2023-09-07 20:24:44* Test Item Value Reference Range Interpretation Comme nts Total IgA (test code = 0301648130) 78.3 U/mL 70-312 Lab Interpretation (test cod e = 32893-6) Normal [facility] [id number] 20:24:44* Test Item Value Reference Range Interpretation Comme nts Total IgA (test code = 5064042679) 78.3 U/mL 70-312 Lab Interpretation (test cod e = 56174-7) Normal [facility] [id number] 20:24:44* Test Item Value Reference Range Interpretation Comme nts Total IgA (test code = 0598268912) 78.3 U/mL 70-312 Lab Interpretation (test cod e = 63545-6) Normal [facility] [id number] 20:24:44* Test Item Value Reference Range Interpretation Comme nts Total IgA (test code = 5675221413) 78.3 U/mL 70-312 Lab Interpretation (test cod e = 58913-5) Normal [facility] [id number] 20:24:44* Test Item Value Reference Range Interpretation Comme nts Total IgA (test code = 8373115220) 78.3 U/mL 70-312 Lab Interpretation (test cod e = 13378-8) Normal [facility] [id number] 20:24:44* Test Item Value Reference Range Interpretation Comme nts Total IgA (test code = 6283585323) 78.3 U/mL 70-312 Lab Interpretation (test cod e = 09846-0) Normal [facility] [id number] 20:24:44* Test Item Value Reference Range Interpretation Comme nts Total IgA (test code = 0135085315) 78.3 U/mL 70-312 Lab Interpretation (test cod e = 25677-0) Normal [facility] [id number] 20:24:44* Test Item Value Reference Range Interpretation Comme nts Total IgA (test code = 2007300764) 78.3 U/mL 70-312 Lab Interpretation (test cod e = 23437-0) Normal [facility] [id number] 20:24:44* Test Item Value Reference Range Interpretation Comme nts Total IgA (test code = 1039073117) 78.3 U/mL 70-312 Lab Interpretation (test cod e = 72253-3) Normal [facility] [id number] 20:24:44* Test Item Value Reference Range Interpretation Comme nts Total IgA (test code = 6195982968) 78.3 U/mL 70-312 Lab Interpretation (test cod e = 83630-9) Normal [facility] [id number] 17:30:19* Test Item Value Reference Range Interpretation Comme nts FERRITIN (test code = 0362591605) 4.8 ng/mL 6.0-137.0 L ZAINAB (test code = ZAINAB) Biotin has been reported to cause a negative bias, interpret results relative to patient's use of biotin. Lab Interpretation (test code = 27309-9) Abnormal [facility] [id number] 17:30:19* Test Item Value Reference Range Interpretation Comme nts FERRITIN (test code = 6157689082) 4.8 ng/mL 6.0-137.0 L ZAINAB (test code = ZAINAB) Biotin has been reported to cause a negative bias, interpret results relative to patient's use of biotin. Lab Interpretation (test code = 29199-8) Abnormal [facility] [id number] 17:30:19* Test Item Value Reference Range Interpretation Comme nts FERRITIN (test code = 6767643664) 4.8 ng/mL 6.0-137.0 L ZAINAB (test code = ZAINAB) Biotin has been reported to cause a negative bias, interpret results relative to patient's use of biotin. Lab Interpretation (test code = 98238-0) Abnormal [facility] [id number] 17:30:19* Test Item Value Reference Range Interpretation Comme nts FERRITIN (test code = 1543205891) 4.8 ng/mL 6.0-137.0 L ZAINAB (test code = ZAINAB) Biotin has been reported to cause a negative bias, interpret results relative to patient's use of biotin. Lab Interpretation (test code = 06190-1) Abnormal [facility] [id number] 17:30:19* Test Item Value Reference Range Interpretation Comme nts FERRITIN (test code = 8617299452) 4.8 ng/mL 6.0-137.0 L ZAINAB (test code = ZAINAB) Biotin has been reported to cause a negative bias, interpret results relative to patient's use of biotin. Lab Interpretation (test code = 57612-6) Abnormal [facility] [id number] 17:30:19* Test Item Value Reference Range Interpretation Comme nts FERRITIN (test code = 5399727674) 4.8 ng/mL 6.0-137.0 L ZAINAB (test code = ZAINAB) Biotin has been reported to cause a negative bias, interpret results relative to patient's use of biotin. Lab Interpretation (test code = 88367-2) Abnormal [facility] [id number] 17:30:19* Test Item Value Reference Range Interpretation Comme nts FERRITIN (test code = 1939127805) 4.8 ng/mL 6.0-137.0 L ZAINAB (test code = ZAINAB) Biotin has been reported to cause a negative bias, interpret results relative to patient's use of biotin. Lab Interpretation (test code = 62713-1) Abnormal [facility] [id number] 17:30:19* Test Item Value Reference Range Interpretation Comme nts FERRITIN (test code = 4388839473) 4.8 ng/mL 6.0-137.0 L ZAINAB (test code = ZAINAB) Biotin has been reported to cause a negative bias, interpret results relative to patient's use of biotin. Lab Interpretation (test code = 28371-1) Abnormal [facility] [id number] 17:30:19* Test Item Value Reference Range Interpretation Comme nts FERRITIN (test code = 5442391593) 4.8 ng/mL 6.0-137.0 L ZAINAB (test code = ZAINAB) Biotin has been reported to cause a negative bias, interpret results relative to patient's use of biotin. Lab Interpretation (test code = 27460-3) Abnormal [facility] [id number] 17:30:19* Test Item Value Reference Range Interpretation Comme nts FERRITIN (test code = 9342479881) 4.8 ng/mL 6.0-137.0 L ZAINAB (test code = ZAINAB) Biotin has been reported to cause a negative bias, interpret results relative to patient's use of biotin. Lab Interpretation (test code = 43723-8) Abnormal [facility] [id number] 17:30:19* Test Item Value Reference Range Interpretation Comme nts FERRITIN (test code = 3431441835) 4.8 ng/mL 6.0-137.0 L ZAINAB (test code = ZAINAB) Biotin has been reported to cause a negative bias, interpret results relative to patient's use of biotin. Lab Interpretation (test code = 50477-1) Abnormal [facility] [id number] 17:30:19* Test Item Value Reference Range Interpretation Comme nts FERRITIN (test code = 7354795355) 4.8 ng/mL 6.0-137.0 L ZAINAB (test code = ZAINAB) Biotin has been reported to cause a negative bias, interpret results relative to patient's use of biotin. Lab Interpretation (test code = 25878-9) Abnormal [facility] [id number] 17:03:34* Test Item Value Reference Range Interpretation Comme nts IRON (test code = 3938498949) 34 ug/dL 50-160 L TIBC (test code = 2497981254) 515 ug/dL 250-410 H % FE SAT (test code = 7094183118) 7 % 20-50 L Lab Interpretation (test cod e = 88201-9) Abnormal [facility]2023-09-07 17:03:34* Test Item Value Reference Range Interpretation Comme nts IRON (test code = 5801432035) 34 ug/dL 50-160 L TIBC (test code = 7229751305) 515 ug/dL 250-410 H % FE SAT (test code = 8843709144) 7 % 20-50 L Lab Interpretation (test cod e = 63707-0) Abnormal [facility] [id number] 17:03:34* Test Item Value Reference Range Interpretation Comme nts IRON (test code = 4493039923) 34 ug/dL 50-160 L TIBC (test code = 7656694636) 515 ug/dL 250-410 H % FE SAT (test code = 4839062584) 7 % 20-50 L Lab Interpretation (test cod e = 46045-4) Abnormal [facility] [id number] 17:03:34* Test Item Value Reference Range Interpretation Comme nts IRON (test code = 7494741011) 34 ug/dL 50-160 L TIBC (test code = 7627714770) 515 ug/dL 250-410 H % FE SAT (test code = 0541729428) 7 % 20-50 L Lab Interpretation (test cod e = 69861-5) Abnormal [facility] [id number] 17:03:34* Test Item Value Reference Range Interpretation Comme nts IRON (test code = 8940929531) 34 ug/dL 50-160 L TIBC (test code = 5053516149) 515 ug/dL 250-410 H % FE SAT (test code = 3182544545) 7 % 20-50 L Lab Interpretation (test cod e = 02964-9) Abnormal [facility]2023-09-07 17:03:34* Test Item Value Reference Range Interpretation Comme nts IRON (test code = 6680118755) 34 ug/dL 50-160 L TIBC (test code = 4544211123) 515 ug/dL 250-410 H % FE SAT (test code = 3555436104) 7 % 20-50 L Lab Interpretation (test cod e = 11637-7) Abnormal [facility] [id number] 17:03:34* Test Item Value Reference Range Interpretation Comme nts IRON (test code = 2248397293) 34 ug/dL 50-160 L TIBC (test code = 0805174904) 515 ug/dL 250-410 H % FE SAT (test code = 3137175268) 7 % 20-50 L Lab Interpretation (test cod e = 62262-4) Abnormal [facility] [id number] 17:03:34* Test Item Value Reference Range Interpretation Comme nts IRON (test code = 4812919799) 34 ug/dL 50-160 L TIBC (test code = 3239079630) 515 ug/dL 250-410 H % FE SAT (test code = 6908154148) 7 % 20-50 L Lab Interpretation (test cod e = 76274-4) Abnormal [facility] [id number] 17:03:34* Test Item Value Reference Range Interpretation Comme nts IRON (test code = 2652225651) 34 ug/dL 50-160 L TIBC (test code = 0697261917) 515 ug/dL 250-410 H % FE SAT (test code = 1547355295) 7 % 20-50 L Lab Interpretation (test cod e = 52058-2) Abnormal [facility] [id number] 17:03:34* Test Item Value Reference Range Interpretation Comme nts IRON (test code = 8222111345) 34 ug/dL 50-160 L TIBC (test code = 8620583719) 515 ug/dL 250-410 H % FE SAT (test code = 2400316198) 7 % 20-50 L Lab Interpretation (test cod e = 26465-0) Abnormal [facility] [id number] 17:03:34* Test Item Value Reference Range Interpretation Comme nts IRON (test code = 2036702072) 34 ug/dL 50-160 L TIBC (test code = 2471445240) 515 ug/dL 250-410 H % FE SAT (test code = 8356131104) 7 % 20-50 L Lab Interpretation (test cod e = 51745-4) Abnormal [facility]2023-09-07 17:03:34* Test Item Value Reference Range Interpretation Comme nts IRON (test code = 2804582816) 34 ug/dL 50-160 L TIBC (test code = 6805177545) 515 ug/dL 250-410 H % FE SAT (test code = 0402931990) 7 % 20-50 L Lab Interpretation (test cod e = 14655-5) Abnormal [facility]2023-08-24 19:48:06* Test Item Value Reference Range Interpretation Comme nts [place] (test code = 8837875997) 0.5 mmol/L 0.6-1.2 L ZAINAB (test code = ZAINAB) Toxic Range: ? Greater than 1.2 mmol/L Lab Interpretation (test code = 91234-1) Abnormal [facility]2023-08-24 19:48:06* Test Item Value Reference Range Interpretation Comme nts [place] (test code = 6403758556) 0.5 mmol/L 0.6-1.2 L ZAINAB (test code = ZAINAB) Toxic Range: ? Greater than 1.2 mmol/L Lab Interpretation (test code = 38039-8) Abnormal [facility]2023-08-24 19:48:06* Test Item Value Reference Range Interpretation Comme nts [place] (test code = 9669952885) 0.5 mmol/L 0.6-1.2 L ZAINAB (test code = ZAINAB) Toxic Range: ? Greater than 1.2 mmol/L Lab Interpretation (test code = 48653-2) Abnormal [facility]2023-08-24 19:48:06* Test Item Value Reference Range Interpretation Comme nts [place] (test code = 3303268121) 0.5 mmol/L 0.6-1.2 L ZAINAB (test code = ZAINAB) Toxic Range: ? Greater than 1.2 mmol/L Lab Interpretation (test code = 46393-1) Abnormal [facility]2023-08-24 19:48:06* Test Item Value Reference Range Interpretation Comme nts [place] (test code = 4210564172) 0.5 mmol/L 0.6-1.2 L ZAINAB (test code = ZAINAB) Toxic Range: ? Greater than 1.2 mmol/L Lab Interpretation (test code = 00405-1) Abnormal [facility]2023-08-24 19:48:06* Test Item Value Reference Range Interpretation Comme nts [place] (test code = 6151847197) 0.5 mmol/L 0.6-1.2 L ZAINAB (test code = ZAINAB) Toxic Range: ? Greater than 1.2 mmol/L Lab Interpretation (test code = 09387-9) Abnormal [facility]2023-08-24 19:48:06* Test Item Value Reference Range Interpretation Comme nts [place] (test code = 1657033201) 0.5 mmol/L 0.6-1.2 L ZAINAB (test code = ZAINAB) Toxic Range: ? Greater than 1.2 mmol/L Lab Interpretation (test code = 51181-8) Abnormal [facility]2023-08-24 19:48:06* Test Item Value Reference Range Interpretation Comme nts [place] (test code = 5338209016) 0.5 mmol/L 0.6-1.2 L ZAINAB (test code = ZAINAB) Toxic Range: ? Greater than 1.2 mmol/L Lab Interpretation (test code = 44508-7) Abnormal [facility]2023-08-24 19:48:06* Test Item Value Reference Range Interpretation Comme nts [place] (test code = 8255421316) 0.5 mmol/L 0.6-1.2 L ZAINAB (test code = ZAINAB) Toxic Range: ? Greater than 1.2 mmol/L Lab Interpretation (test code = 13577-7) Abnormal [facility]2023-08-24 19:48:06* Test Item Value Reference Range Interpretation Comme nts [place] (test code = 6133558975) 0.5 mmol/L 0.6-1.2 L ZAINAB (test code = ZAINAB) Toxic Range: ? Greater than 1.2 mmol/L Lab Interpretation (test code = 48749-8) Abnormal [facility]2023-08-24 19:48:06* Test Item Value Reference Range Interpretation Comme nts [place] (test code = 0948793071) 0.5 mmol/L 0.6-1.2 L ZAINAB (test code = ZAINAB) Toxic Range: ? Greater than 1.2 mmol/L Lab Interpretation (test code = 80994-2) Abnormal [facility]2023-08-24 19:48:06* Test Item Value Reference Range Interpretation Comme nts [place] (test code = 8022364732) 0.5 mmol/L 0.6-1.2 L ZAINAB (test code = ZAINAB) Toxic Range: ? Greater than 1.2 mmol/L Lab Interpretation (test code = 19933-4) Abnormal [facility]2023-08-24 19:48:06* Test Item Value Reference Range Interpretation Comme nts [place] (test code = 8183381922) 0.5 mmol/L 0.6-1.2 L ZAINAB (test code = ZAINAB) Toxic Range: ? Greater than 1.2 mmol/L Lab Interpretation (test code = 74979-2) Abnormal [facility]2023-08-24 19:48:06* Test Item Value Reference Range Interpretation Comme nts [place] (test code = 8754989826) 0.5 mmol/L 0.6-1.2 L ZAINAB (test code = ZAINAB) Toxic Range: ? Greater than 1.2 mmol/L Lab Interpretation (test code = 79093-2) [facility] [id number] 17:24:34 * Test Item Value Reference Range Interpretation Comme nts TSH (test code = 9201967797) 1.07 See_Comment [Automated [employer] ge] The system which generated this result transmitted reference range: 0.45 - 4.70 mIU/L. The reference range was not used to interpret this result as normal/abnormal. Lab Interpretation (test code = 07634-5) [facility] [id number] 17:24:34 * Test Item Value Reference Range Interpretation Comme nts TSH (test code = 8932787253) 1.07 See_Comment [Automated [employer]] The system which generated this result transmitted reference range: 0.45 - 4.70 mIU/L. The reference range was not used to interpret this result as normal/abnormal. Lab Interpretation (test code = 97765-7) [facility] [id number] 17:24:34 * Test Item Value Reference Range Interpretation Comme nts TSH (test code = 5198574856) 1.07 See_Comment [Automated messa ge] The system which generated this result transmitted reference range: 0.45 - 4.70 mIU/L. The reference range was not used to interpret this result as normal/abnormal. Lab Interpretation (test code = 47675-5) [facility] [id number] 17:24:34 * Test Item Value Reference Range Interpretation Comme nts TSH (test code = 4810622400) 1.07 See_Comment [Automated messa ge] The system which generated this result transmitted reference range: 0.45 - 4.70 mIU/L. The reference range was not used to interpret this result as normal/abnormal. Lab Interpretation (test code = 31378-7) [facility] [id number] 17:24:34 * Test Item Value Reference Range Interpretation Comme nts TSH (test code = 0963495101) 1.07 See_Comment [Automated messa ge] The system which generated this result transmitted reference range: 0.45 - 4.70 mIU/L. The reference range was not used to interpret this result as normal/abnormal. Lab Interpretation (test code = 87006-6) [facility] [id number] 17:24:34 * Test Item Value Reference Range Interpretation Comme nts TSH (test code = 9652125620) 1.07 See_Comment [Automated messa ge] The system which generated this result transmitted reference range: 0.45 - 4.70 mIU/L. The reference range was not used to interpret this result as normal/abnormal. Lab Interpretation (test code = 61049-7) [facility] [id number] 17:24:34 * Test Item Value Reference Range Interpretation Comme nts TSH (test code = 5349478998) 1.07 See_Comment [Automated messa ge] The system which generated this result transmitted reference range: 0.45 - 4.70 mIU/L. The reference range was not used to interpret this result as normal/abnormal. Lab Interpretation (test code = 29301-0) [facility] [id number] 17:24:34 * Test Item Value Reference Range Interpretation Comme nts TSH (test code = 4805982859) 1.07 See_Comment [Automated messa ge] The system which generated this result transmitted reference range: 0.45 - 4.70 mIU/L. The reference range was not used to interpret this result as normal/abnormal. Lab Interpretation (test code = 53978-6) [facility] [id number] 17:24:34 * Test Item Value Reference Range Interpretation Comme nts TSH (test code = 2779022676) 1.07 See_Comment [Automated messa ge] The system which generated this result transmitted reference range: 0.45 - 4.70 mIU/L. The reference range was not used to interpret this result as normal/abnormal. Lab Interpretation (test code = 52911-4) [facility] [id number] 17:24:34 * Test Item Value Reference Range Interpretation Comme nts TSH (test code = 8730764072) 1.07 See_Comment [Automated messa ge] The system which generated this result transmitted reference range: 0.45 - 4.70 mIU/L. The reference range was not used to interpret this result as normal/abnormal. Lab Interpretation (test code = 07411-8) [facility] [id number] 17:24:34 * Test Item Value Reference Range Interpretation Comme nts TSH (test code = 1783790062) 1.07 See_Comment [Automated messa ge] The system which generated this result transmitted reference range: 0.45 - 4.70 mIU/L. The reference range was not used to interpret this result as normal/abnormal. Lab Interpretation (test code = 87543-0) [facility] [id number] 17:24:34 * Test Item Value Reference Range Interpretation Comme nts TSH (test code = 7839997839) 1.07 See_Comment [Automated messa ge] The system which generated this result transmitted reference range: 0.45 - 4.70 mIU/L. The reference range was not used to interpret this result as normal/abnormal. Lab Interpretation (test code = 32274-5) [facility] [id number] 17:24:34 * Test Item Value Reference Range Interpretation Comme nts TSH (test code = 6874885093) 1.07 See_Comment [Automated [employer]] The system which generated this result transmitted reference range: 0.45 - 4.70 mIU/L. The reference range was not used to interpret this result as normal/abnormal. Lab Interpretation (test code = 06107-8) [facility] [id number] 17:24:34 * Test Item Value Reference Range Interpretation Comme nts TSH (test code = 0771489883) 1.07 See_Comment [Automated [employer]] The system which generated this result transmitted reference range: 0.45 - 4.70 mIU/L. The reference range was not used to interpret this result as normal/abnormal. Lab Interpretation (test code = 15195-3) Normal [facility]. METABOLIC PANEL ([id number])2022-10-05 16:54:48* Test Item Value Reference Range Interpretation Comme nts NA (test code = 4814246521) 140 mmol/L 135-145 K (test code = 2285031773) 4.6 mmol/L 3.5-5.0 CL (test code = 4236526366) 106 mmol/L 98-108 CO2 TOTAL (test code = 9362659849) 28 mmol/L 23-31 AGAP (test code = 5291302167) 6 2-16 BUN (test code = 6923193946) 5 mg/dL 7-23 L GLUCOSE (test code = 2144533772) 90 mg/dL 70-110 CREATININE (test code = 6938367871) 0.54 mg/dL 0.50-1.04 TOTAL BILI (test code = 1365109567) 0.1 mg/dL 0.1-1.1 CALCIUM (test code = 3022200416) 9.6 mg/dL 8.6-10.6 T PROTEIN (test code = 4939761587) 6.2 g/dL 6.3-8.2 L ALBUMIN (test code = 3162921455) 4.0 g/dL 3.5-5.0 ALK PHOS (test code = 5178038541) 125 U/L 34-122 H ALTv (test code = 1742-6) 29 U/L 5-35 AST(SGOT) (test code = 8083228871) 24 U/L 13-40 eGFR (test code = 1073484052) 122.1 mL/min/1.73m2 ZAINAB (test code = ZAINAB) [...] imaging tests). Lab Interpretation (test code = 42690-9) [facility]TOTAL CHOLESTEROL, TRIGLYCERIDES, HDL)2022-10-05 16:54:48* Test Item Value Reference Range Interpretation Comme nts CHOL (test code = 6744773500) 183 mg/dL 120-200 HDL (test code = 6471288892) 40 mg/dL >=50 L HDLC RATIO (test code = 0684880056) 4.6 <=4.5 H TRIG (test code = 7705393909) 128 mg/dL 30-170 LDL CHOL (test code = 76570-2) 117 mg/dL <=160 VLDL (test code = 9460416367) 26 mg/dL 5-60 Lab Interpretation (test cod e = 35167-3) Abnormal [facility]. METABOLIC PANEL (69695)2022-10-05 16:54:48* Test Item Value Reference Range Interpretation Comme nts NA (test code = 2948070951) 140 mmol/L 135-145 K (test code = 4386811987) 4.6 mmol/L 3.5-5.0 CL (test code = 2459175720) 106 mmol/L 98-108 CO2 TOTAL (test code = 2218302792) 28 mmol/L 23-31 AGAP (test code = 9218048562) 6 2-16 BUN (test code = 5232874466) 5 mg/dL 7-23 L GLUCOSE (test code = 8405727794) 90 mg/dL 70-110 CREATININE (test code = 6694251938) 0.54 mg/dL 0.50-1.04 TOTAL BILI (test code = 1154604635) 0.1 mg/dL 0.1-1.1 CALCIUM (test code = 9142193986) 9.6 mg/dL 8.6-10.6 T PROTEIN (test code = 9965941297) 6.2 g/dL 6.3-8.2 L ALBUMIN (test code = 4976332550) 4.0 g/dL 3.5-5.0 ALK PHOS (test code = 2530117946) 125 U/L 34-122 H ALTv (test code = 1742-6) 29 U/L 5-35 AST(SGOT) (test code = 3390850896) 24 U/L 13-40 eGFR (test code = 8443990323) 122.1 mL/min/1.73m2 ZAINAB (test code = ZAINAB) [...] imaging tests). Lab Interpretation (test code = 21357-0) [facility] (96485)(TOTAL CHOLESTEROL, TRIGLYCERIDES, HDL)2022-10-05 16:54:48* Test Item Value Reference Range Interpretation Comme nts CHOL (test code = 3309094194) 183 mg/dL 120-200 HDL (test code = 4495589021) 40 mg/dL >=50 L HDLC RATIO (test code = 7651193125) 4.6 <=4.5 H TRIG (test code = 3576469786) 128 mg/dL 30-170 LDL CHOL (test code = 69560-9) 117 mg/dL <=160 VLDL (test code = 3951600899) 26 mg/dL 5-60 Lab Interpretation (test cod e = 49736-4) [facility]OL[facility] (12488)2022-10-05 16:54:48* Test Item Value Reference Range Interpretation Comme nts NA (test code = 1176294073) 140 mmol/L 135-145 K (test code = 7563602321) 4.6 mmol/L 3.5-5.0 CL (test code = 6521960068) 106 mmol/L 98-108 CO2 TOTAL (test code = 8470443797) 28 mmol/L 23-31 AGAP (test code = 1206979493) 6 2-16 BUN (test code = 8590255650) 5 mg/dL 7-23 L GLUCOSE (test code = 7170593795) 90 mg/dL 70-110 CREATININE (test code = 9374671659) 0.54 mg/dL 0.50-1.04 TOTAL BILI (test code = 9873222995) 0.1 mg/dL 0.1-1.1 CALCIUM (test code = 8116796244) 9.6 mg/dL 8.6-10.6 T PROTEIN (test code = 4442140226) 6.2 g/dL 6.3-8.2 L ALBUMIN (test code = 2599419831) 4.0 g/dL 3.5-5.0 ALK PHOS (test code = 2734019711) 125 U/L 34-122 H ALTv (test code = 1742-6) 29 U/L 5-35 AST(SGOT) (test code = 4475185060) 24 U/L 13-40 eGFR (test code = 8848268699) 122.1 mL/min/1.73m2 ZAINAB (test code = ZAINAB) [...] imaging tests). Lab Interpretation (test code = 04896-2) [facility] (38836)(TOTAL CHOLESTEROL, TRIGLYCERIDES, HDL)2022-10-05 16:54:48* Test Item Value Reference Range Interpretation Comme nts CHOL (test code = 9348103283) 183 mg/dL 120-200 HDL (test code = 9417599639) 40 mg/dL >=50 L HDLC RATIO (test code = 0243418322) 4.6 <=4.5 H TRIG (test code = 0848309746) 128 mg/dL 30-170 LDL CHOL (test code = 98715-2) 117 mg/dL <=160 VLDL (test code = 5601162198) 26 mg/dL 5-60 Lab Interpretation (test cod e = 15870-8) [facility] (93313)(TOTAL CHOLESTEROL, TRIGLYCERIDES, HDL)2022-10-05 16:54:48* Test Item Value Reference Range Interpretation Comme nts CHOL (test code = 0342050906) 183 mg/dL 120-200 HDL (test code = 0931242377) 40 mg/dL >=50 L HDLC RATIO (test code = 9627892012) 4.6 <=4.5 H TRIG (test code = 9644512021) 128 mg/dL 30-170 LDL CHOL (test code = 36769-5) 117 mg/dL <=160 VLDL (test code = 8826149610) 26 mg/dL 5-60 Lab Interpretation (test cod e = 47757-9) [facility] (86002)(TOTAL CHOLESTEROL, TRIGLYCERIDES, HDL)2022-10-05 16:54:48* Test Item Value Reference Range Interpretation Comme nts CHOL (test code = 2730693255) 183 mg/dL 120-200 HDL (test code = 0703829596) 40 mg/dL >=50 L HDLC RATIO (test code = 8420589526) 4.6 <=4.5 H TRIG (test code = 0806804561) 128 mg/dL 30-170 LDL CHOL (test code = 31406-6) 117 mg/dL <=160 VLDL (test code = 0533161006) 26 mg/dL 5-60 Lab Interpretation (test cod e = 16469-8) [facility] (18753)(TOTAL CHOLESTEROL, TRIGLYCERIDES, HDL)2022-10-05 16:54:48* Test Item Value Reference Range Interpretation Comme nts CHOL (test code = 2595120723) 183 mg/dL 120-200 HDL (test code = 9828799678) 40 mg/dL >=50 L HDLC RATIO (test code = 3075102826) 4.6 <=4.5 H TRIG (test code = 6649339737) 128 mg/dL 30-170 LDL CHOL (test code = 74574-8) 117 mg/dL <=160 VLDL (test code = 7342379660) 26 mg/dL 5-60 Lab Interpretation (test cod e = 12271-3) [facility] (67602)(TOTAL CHOLESTEROL, TRIGLYCERIDES, HDL)2022-10-05 16:54:48* Test Item Value Reference Range Interpretation Comme nts CHOL (test code = 9919683009) 183 mg/dL 120-200 HDL (test code = 6342971128) 40 mg/dL >=50 L HDLC RATIO (test code = 0485299049) 4.6 <=4.5 H TRIG (test code = 3795133699) 128 mg/dL 30-170 LDL CHOL (test code = 17895-4) 117 mg/dL <=160 VLDL (test code = 1656792144) 26 mg/dL 5-60 Lab Interpretation (test cod e = 25864-2) [facility] (14411)(TOTAL CHOLESTEROL, TRIGLYCERIDES, HDL)2022-10-05 16:54:48* Test Item Value Reference Range Interpretation Comme nts CHOL (test code = 9735713075) 183 mg/dL 120-200 HDL (test code = 3116503088) 40 mg/dL >=50 L HDLC RATIO (test code = 9410538344) 4.6 <=4.5 H TRIG (test code = 8497208347) 128 mg/dL 30-170 LDL CHOL (test code = 17016-3) 117 mg/dL <=160 VLDL (test code = 8362085925) 26 mg/dL 5-60 Lab Interpretation (test cod e = 90030-4) [facility] (78435)(TOTAL CHOLESTEROL, TRIGLYCERIDES, HDL)2022-10-05 16:54:48* Test Item Value Reference Range Interpretation Comme nts CHOL (test code = 1700040372) 183 mg/dL 120-200 HDL (test code = 3633773356) 40 mg/dL >=50 L HDLC RATIO (test code = 7572560539) 4.6 <=4.5 H TRIG (test code = 6748731489) 128 mg/dL 30-170 LDL CHOL (test code = 43275-4) 117 mg/dL <=160 VLDL (test code = 1356034918) 26 mg/dL 5-60 Lab Interpretation (test cod e = 34314-4) [facility] (39959)(TOTAL CHOLESTEROL, TRIGLYCERIDES, HDL)2022-10-05 16:54:48* Test Item Value Reference Range Interpretation Comme nts CHOL (test code = 1639141789) 183 mg/dL 120-200 HDL (test code = 5712582189) 40 mg/dL >=50 L HDLC RATIO (test code = 6776958524) 4.6 <=4.5 H TRIG (test code = 4394100762) 128 mg/dL 30-170 LDL CHOL (test code = 52899-2) 117 mg/dL <=160 VLDL (test code = 0583759305) 26 mg/dL 5-60 Lab Interpretation (test cod e = 87530-8) [facility]normal [facility] (71064)(TOTAL CHOLESTEROL, TRIGLYCERIDES, HDL)2022-10-05 16:54:48* Test Item Value Reference Range Interpretation Comme nts CHOL (test code = 0371099530) 183 mg/dL 120-200 HDL (test code = 1407582747) 40 mg/dL >=50 L HDLC RATIO (test code = 1236451312) 4.6 <=4.5 H TRIG (test code = 4515748835) 128 mg/dL 30-170 LDL CHOL (test code = 30517-0) 117 mg/dL <=160 VLDL (test code = 6694601411) 26 mg/dL 5-60 Lab Interpretation (test cod e = 62701-8) [facility] (04169)(TOTAL CHOLESTEROL, TRIGLYCERIDES, HDL)2022-10-05 16:54:48* Test Item Value Reference Range Interpretation Comme nts CHOL (test code = 7996738809) 183 mg/dL 120-200 HDL (test code = 7673716783) 40 mg/dL >=50 L HDLC RATIO (test code = 1960888946) 4.6 <=4.5 H TRIG (test code = 0862732873) 128 mg/dL 30-170 LDL CHOL (test code = 61249-0) 117 mg/dL <=160 VLDL (test code = 8642721621) 26 mg/dL 5-60 Lab Interpretation (test cod e = 38088-1) [facility] (16711)(TOTAL CHOLESTEROL, TRIGLYCERIDES, HDL)2022-10-05 16:54:48* Test Item Value Reference Range Interpretation Comme nts CHOL (test code = 7564578242) 183 mg/dL 120-200 HDL (test code = 4282332054) 40 mg/dL >=50 L HDLC RATIO (test code = 3534396056) 4.6 <=4.5 H TRIG (test code = 0129413172) 128 mg/dL 30-170 LDL CHOL (test code = 52488-0) 117 mg/dL <=160 VLDL (test code = 3548110051) 26 mg/dL 5-60 Lab Interpretation (test cod e = 29138-9) [facility] (20021)(TOTAL CHOLESTEROL, TRIGLYCERIDES, HDL)2022-10-05 16:54:48* Test Item Value Reference Range Interpretation Comme nts CHOL (test code = 9573442897) 183 mg/dL 120-200 HDL (test code = 0716057346) 40 mg/dL >=50 L HDLC RATIO (test code = 7614787296) 4.6 <=4.5 H TRIG (test code = 3652136514) 128 mg/dL 30-170 LDL CHOL (test code = 88986-6) 117 mg/dL <=160 VLDL (test code = 4884338922) 26 mg/dL 5-60 Lab Interpretation (test cod e = 27702-9) [facility]normal [facility]GLY[facility]OSYLATED [facility]IN (A1C)2022-10-05 15:51:11* Test Item Value Reference Range Interpretation Comme nts HGB A1C (test code = 4548-4) 5.1 % 4.0-5.7 ZAINAB (test code = ZAINAB) Reference RangesNormal: <5.7%Prediabetes: 5.7 - 6.4%Diabetes: > 6.5% Lab Interpretation (test code = 65756-9) Normal [facility]GL[facility] (A1C)2022-10-05 15:51:11* Test Item Value Reference Range Interpretation Comme nts HGB A1C (test code = 4548-4) 5.1 % 4.0-5.7 ZAINAB (test code = ZAINAB) Reference RangesNormal: <5.7%Prediabetes: 5.7 - 6.4%Diabetes: > 6.5% Lab Interpretation (test code = 10251-2) Normal [facility] (A1C)2022-10-05 15:51:11* Test Item Value Reference Range Interpretation Comme nts HGB A1C (test code = 4548-4) 5.1 % 4.0-5.7 ZAINAB (test code = ZAINAB) Reference RangesNormal: <5.7%Prediabetes: 5.7 - 6.4%Diabetes: > 6.5% Lab Interpretation (test code = 34136-3) Normal [facility]A1C)2022-10-05 15:51:11* Test Item Value Reference Range Interpretation Comme nts HGB A1C (test code = 4548-4) 5.1 % 4.0-5.7 ZAINAB (test code = ZAINAB) Reference RangesNormal: <5.7%Prediabetes: 5.7 - 6.4%Diabetes: > 6.5% Lab Interpretation (test code = 45622-2) Normal [facility]A1C)2022-10-05 15:51:11* Test Item Value Reference Range Interpretation Comme nts HGB A1C (test code = 4548-4) 5.1 % 4.0-5.7 ZAINAB (test code = ZAINAB) Reference RangesNormal: <5.7%Prediabetes: 5.7 - 6.4%Diabetes: > 6.5% Lab Interpretation (test code = 09184-9) [facility] 15:51:11* Test Item Value Reference Range Interpretation Comme nts HGB A1C (test code = 4548-4) 5.1 % 4.0-5.7 ZAINAB (test code = ZAINAB) Reference RangesNormal: <5.7%Prediabetes: 5.7 - 6.4%Diabetes: > 6.5% Lab Interpretation (test code = 91317-8) [facility]2022-10-05 15:51:11* Test Item Value Reference Range Interpretation Comme nts HGB A1C (test code = 4548-4) 5.1 % 4.0-5.7 ZAINAB (test code = ZAINAB) Reference RangesNormal: <5.7%Prediabetes: 5.7 - 6.4%Diabetes: > 6.5% Lab Interpretation (test code = 83613-5) [facility]2022-10-05 15:51:11* Test Item Value Reference Range Interpretation Comme nts HGB A1C (test code = 4548-4) 5.1 % 4.0-5.7 ZAINAB (test code = ZAINAB) Reference RangesNormal: <5.7%Prediabetes: 5.7 - 6.4%Diabetes: > 6.5% Lab Interpretation (test code = 06627-8) [facility]2022-10-05 15:51:11* Test Item Value Reference Range Interpretation Comme nts HGB A1C (test code = 4548-4) 5.1 % 4.0-5.7 ZAINAB (test code = ZAINAB) Reference RangesNormal: <5.7%Prediabetes: 5.7 - 6.4%Diabetes: > 6.5% Lab Interpretation (test code = 23732-4) Normal [facility]C)2022-10-05 15:51:11* Test Item Value Reference Range Interpretation Comme nts HGB A1C (test code = 4548-4) 5.1 % 4.0-5.7 ZAINAB (test code = ZAINAB) Reference RangesNormal: <5.7%Prediabetes: 5.7 - 6.4%Diabetes: > 6.5% Lab Interpretation (test code = 33641-7) [facility]2022-10-05 15:51:11* Test Item Value Reference Range Interpretation Comme nts HGB A1C (test code = 4548-4) 5.1 % 4.0-5.7 ZAINAB (test code = ZAINAB) Reference RangesNormal: <5.7%Prediabetes: 5.7 - 6.4%Diabetes: > 6.5% Lab Interpretation (test code = 82002-7) [facility]2022-10-05 15:51:11* Test Item Value Reference Range Interpretation Comme nts HGB A1C (test code = 4548-4) 5.1 % 4.0-5.7 ZAINAB (test code = ZAINAB) Reference RangesNormal: <5.7%Prediabetes: 5.7 - 6.4%Diabetes: > 6.5% Lab Interpretation (test code = 99407-3) [facility]2022-10-05 15:51:11* Test Item Value Reference Range Interpretation Comme nts HGB A1C (test code = 4548-4) 5.1 % 4.0-5.7 ZAINAB (test code = ZAINAB) Reference RangesNormal: <5.7%Prediabetes: 5.7 - 6.4%Diabetes: > 6.5% Lab Interpretation (test code = 32253-1) [facility]2022-10-05 15:51:11* Test Item Value Reference Range Interpretation Comme nts HGB A1C (test code = 4548-4) 5.1 % 4.0-5.7 ZAINAB (test code = ZAINAB) Reference RangesNormal: <5.7%Prediabetes: 5.7 - 6.4%Diabetes: > 6.5% Lab Interpretation (test code = 89357-6) Normal [facility] WITH [id number] 15:20:32* Test Item Value Reference Range Interpretation [...] g/dL 31.6-35.1 L RDW-SD (test code = 72979-0) 47.8 fL 39.0-49.9 RDW-CV (test code = 788-0) 18.0 % 12.0-15.5 H PLT (test code = 777-3) 296 See_Comment [Automated messa ge] The system which generated this result transmitted reference range: 166 - 358 10*3/?L. The reference range was not used to interpret this result as normal/abnormal. MPV (test code = 91264-4) 10.7 fL 9.5-12.9 NRBC/100 WBC (test code = 0347751686) 0.0 See_Comment [Automated [employer] ssage] The system which generated this result transmitted reference range: 0.0 - 10.0 /100 WBCs. The reference range was not used to interpret this result as normal/abnormal. NRBC x10^3 (test code = 4094581724) See_Comment [Automated messa ge] The system which generated this result transmitted reference range: 10*3/?L. The reference range was not used to interpret this result as normal/abnormal. GRAN MAT (NEUT) % (test code = 770-8) 70.0 % IMM GRAN % (test code = 2603667438) 0.40 % LYMPH % (test code = 736-9) 18.7 % MONO % (test code = 5905-5) 5.7 % EOS % (test code = 713-8) 4.5 % BASO % (test code = 706-2) 0.7 % GRAN MAT x10^3(ANC) (test code = 2761975008) 4.66 10*3/uL 1.88-7.09 IMM GRAN x10^3 (test code = 1073422591) 0.03 10*3/uL 0.00-0.06 LYMPH x10^3 (test code = 731-0) 1.25 10*3/uL 1.32-3.29 L MONO x10^3 (test code = 742-7) 0.38 10*3/uL 0.33-0.92 EOS x10^3 (test code = 711-2) 0.30 10*3/uL 0.03-0.39 BASO x10^3 (test code = 704-7) 0.05 10*3/uL 0.01-0.07 Lab Interpretation (test code = 27396-4) Abnormal [facility] WITH [id number] 15:20:32* Test Item Value Reference Range Interpretation [...] g/dL 31.6-35.1 L RDW-SD (test code = 55236-1) 47.8 fL 39.0-49.9 RDW-CV (test code = 788-0) 18.0 % 12.0-15.5 H PLT (test code = 777-3) 296 See_Comment [Automated [employer]] The system which generated this result transmitted reference range: 166 - 358 10*3/?L. The reference range was not used to interpret this result as normal/abnormal. MPV (test code = 57963-3) 10.7 fL 9.5-12.9 NRBC/100 WBC (test code = 5819108828) 0.0 See_Comment [Automated [employer] ssage] The system which generated this result transmitted reference range: 0.0 - 10.0 /100 WBCs. The reference range was not used to interpret this result as normal/abnormal. NRBC x10^3 (test code = 8558578717) See_Comment [Automated [employer] ge] The system which generated this result transmitted reference range: 10*3/?L. The reference range was not used to interpret this result as normal/abnormal. GRAN MAT (NEUT) % (test code = 770-8) 70.0 % IMM GRAN % (test code = 7048141786) 0.40 % LYMPH % (test code = 736-9) 18.7 % MONO % (test code = 5905-5) 5.7 % EOS % (test code = 713-8) 4.5 % BASO % (test code = 706-2) 0.7 % GRAN MAT x10^3(ANC) (test code = 4874024491) 4.66 10*3/uL 1.88-7.09 IMM GRAN x10^3 (test code = 3491746025) 0.03 10*3/uL 0.00-0.06 LYMPH x10^3 (test code = 731-0) 1.25 10*3/uL 1.32-3.29 L MONO x10^3 (test code = 742-7) 0.38 10*3/uL 0.33-0.92 EOS x10^3 (test code = 711-2) 0.30 10*3/uL 0.03-0.39 BASO x10^3 (test code = 704-7) 0.05 10*3/uL 0.01-0.07 Lab Interpretation (test code = 20383-6) Abnormal [facility] WITH [id number] 15:20:32* Test Item Value Reference Range Interpretation [...] g/dL 31.6-35.1 L RDW-SD (test code = 32305-6) 47.8 fL 39.0-49.9 RDW-CV (test code = 788-0) 18.0 % 12.0-15.5 H PLT (test code = 777-3) 296 See_Comment [Automated messa ge] The system which generated this result transmitted reference range: 166 - 358 10*3/?L. The reference range was not used to interpret this result as normal/abnormal. MPV (test code = 84302-1) 10.7 fL 9.5-12.9 NRBC/100 WBC (test code = 9412574379) 0.0 See_Comment [Automated me ssage] The system which generated this result transmitted reference range: 0.0 - 10.0 /100 WBCs. The reference range was not used to interpret this result as normal/abnormal. NRBC x10^3 (test code = 8758491698) See_Comment [Automated messa ge] The system which generated this result transmitted reference range: 10*3/?L. The reference range was not used to interpret this result as normal/abnormal. GRAN MAT (NEUT) % (test code = 770-8) 70.0 % IMM GRAN % (test code = 6679454938) 0.40 % LYMPH % (test code = 736-9) 18.7 % MONO % (test code = 5905-5) 5.7 % EOS % (test code = 713-8) 4.5 % BASO % (test code = 706-2) 0.7 % GRAN MAT x10^3(ANC) (test code = 7953147324) 4.66 10*3/uL 1.88-7.09 IMM GRAN x10^3 (test code = 7054175630) 0.03 10*3/uL 0.00-0.06 LYMPH x10^3 (test code = 731-0) 1.25 10*3/uL 1.32-3.29 L MONO x10^3 (test code = 742-7) 0.38 10*3/uL 0.33-0.92 EOS x10^3 (test code = 711-2) 0.30 10*3/uL 0.03-0.39 BASO x10^3 (test code = 704-7) 0.05 10*3/uL 0.01-0.07 Lab Interpretation (test code = 22593-4) Abnormal [facility]2023-06-14 17:27:33* Test Item Value Reference Range Interpretation Comme nts [place] (test code = 5303327295) 0.3 mmol/L 0.6-1.2 L ZAINAB (test code = ZAINAB) Toxic Range: ? Greater than 1.2 mmol/L Lab Interpretation (test code = 61204-7) Abnormal [facility]2023-06-14 17:27:33* Test Item Value Reference Range Interpretation Comme nts [place] (test code = 1690070488) 0.3 mmol/L 0.6-1.2 L ZAINAB (test code = ZAINAB) Toxic Range: ? Greater than 1.2 mmol/L Lab Interpretation (test code = 69713-2) Abnormal [facility]2023-06-14 17:27:33* Test Item Value Reference Range Interpretation Comme nts [place] (test code = 4310934118) 0.3 mmol/L 0.6-1.2 L ZAINAB (test code = ZAINAB) Toxic Range: ? Greater than 1.2 mmol/L Lab Interpretation (test code = 48790-6) Abnormal [place] 40676-06-14 17:27:33* Test Item Value Reference Range Interpretation Comme nts [place] (test code = 5742290689) 0.3 mmol/L 0.6-1.2 L ZAINAB (test code = ZAINAB) Toxic Range: ? Greater than 1.2 mmol/L Lab Interpretation (test code = 24427-5) Abnormal [facility]2023-06-14 17:27:33* Test Item Value Reference Range Interpretation Comme nts [place] (test code = 8583165022) 0.3 mmol/L 0.6-1.2 L ZAINAB (test code = ZAINAB) Toxic Range: ? Greater than 1.2 mmol/L Lab Interpretation (test code = 84156-0) Abnormal [facility]2023-06-14 17:27:33* Test Item Value Reference Range Interpretation Comme nts [place] (test code = 8954936992) 0.3 mmol/L 0.6-1.2 L ZAINAB (test code = ZAINAB) Toxic Range: ? Greater than 1.2 mmol/L Lab Interpretation (test code = 67027-9) Abnormal [facility]2023-06-14 17:27:33* Test Item Value Reference Range Interpretation Comme nts [place] (test code = 1875701768) 0.3 mmol/L 0.6-1.2 L ZAINAB (test code = ZAINAB) Toxic Range: ? Greater than 1.2 mmol/L Lab Interpretation (test code = 05856-1) Abnormal [facility]2023-06-14 17:27:33* Test Item Value Reference Range Interpretation Comme nts [place] (test code = 8449079445) 0.3 mmol/L 0.6-1.2 L ZAINAB (test code = ZAINAB) Toxic Range: ? Greater than 1.2 mmol/L Lab Interpretation (test code = 27881-7) Abnormal [facility]2023-06-14 17:27:33* Test Item Value Reference Range Interpretation Comme nts [place] (test code = 5224611626) 0.3 mmol/L 0.6-1.2 L ZAINAB (test code = ZAINAB) Toxic Range: ? Greater than 1.2 mmol/L Lab Interpretation (test code = 92513-9) Abnormal [facility]2023-06-14 17:27:33* Test Item Value Reference Range Interpretation Comme nts [place] (test code = 0447799763) 0.3 mmol/L 0.6-1.2 L ZAINAB (test code = ZAINAB) Toxic Range: ? Greater than 1.2 mmol/L Lab Interpretation (test code = 49031-5) Abnormal [facility] [facility]2023-06-14 17:27:33* Test Item Value Reference Range Interpretation Comme nts [place] (test code = 1415793052) 0.3 mmol/L 0.6-1.2 L ZAINAB (test code = ZAINAB) Toxic Range: ? Greater than 1.2 mmol/L Lab Interpretation (test code = 28981-3) Abnormal [facility]2023-06-14 17:27:33* Test Item Value Reference Range Interpretation Comme nts [place] (test code = 3285260339) 0.3 mmol/L 0.6-1.2 L ZAINAB (test code = ZAINAB) Toxic Range: ? Greater than 1.2 mmol/L Lab Interpretation (test code = 53282-5) Abnormal [facility] W/AUTO DIFF WITH [id number] 06:12:05* Test Item Value Reference Range Interpretation [...] 0.00-0.10 ABS NUCLEATED RBCS (test code = 49590) 0.00 K/UL 0.00-0.11 RETICULOCYTE WITH [id number] 06:12:05* Test Item Value Reference Range Interpretation Comme nts RETICULOCYTE COUNT (test code = 1018) 2.50 % 0.80-2.40 H ABSOLUTE RETICULOCYTE (test code = 43041) 103.3 K/UL 32.0-105.0 [facility] has important pathology staff changes effective 04/12/2022. New pathology staff will provide uninterrupted, excellent patient care and clinical consultation. See URL: [email or web address]. UNLESS OTHERWISE INDICATED, ALL TESTING PERFORMED AT [facility] [address] [place] [address] PRODUCTION SUPERINTENDENT HYDRO: CHARLA HERNANDEZ M.D. CLIA NUMBER [id number] [facility]. [id number] CBC W/AUTO [id number] 00:00:00* Test Item Value Reference Range Interpretation [...] ABS NUCLEATED RBCS (test cod e = 14782) 0.00 K/UL Robert F AustinRETICULOCYTE WITH [id number] 00:00:00* Test Item Value Reference Range Interpretation Comme nts RETICULOCYTE COUNT (test cod e = 1018) 2.50 % ABSOLUTE RETICULOCYTE (test code = 18786) 103.3 K/UL Robert Ambrose AustinCBC W/AUTO [id number] 00:00:00* Test Item Value Reference Range Interpretation [...] ABS NUCLEATED RBCS (test cod e = 27770) 0.00 K/UL Robert Ambrose AustinRETICULOCYTE WITH [id number] 00:00:00* Test Item Value Reference Range Interpretation Comme nts RETICULOCYTE COUNT (test cod e = 1018) 2.50 % ABSOLUTE RETICULOCYTE (test code = 29838) 103.3 K/UL Robert Ambrose AustinCBC W/AUTO [id number] 00:00:00* Test Item Value Reference Range Interpretation [...] ABS NUCLEATED RBCS (test cod e = 67018) 0.00 K/UL Robert Ambrose VirajRETICULOCYTE WITH [id number] 00:00:00* Test Item Value Reference Range Interpretation Comme nts RETICULOCYTE COUNT (test cod e = 1018) 2.50 % ABSOLUTE RETICULOCYTE (test code = 31776) 103.3 K/UL Robert Ambrose VirajCBC W/AUTO [id number] 00:00:00* Test Item Value Reference Range Interpretation [...] ABS NUCLEATED RBCS (test cod e = 54895) 0.00 K/UL Robert CaliRETICULOCYTE WITH [id number] 00:00:00* Test Item Value Reference Range Interpretation Comme nts RETICULOCYTE COUNT (test cod e = 1018) 2.50 % ABSOLUTE RETICULOCYTE (test code = 59381) 103.3 K/UL Robert Bailon NON-REFLEX TO [id number] 05:55:49* Test Item Value Reference Range Interpretation Comme nts ANTI-NUCLEAR ANTIBODIES (test code = 3506) NEGATIVE NEGATIVE METHODOLOGY IS I NDIRECT IMMUNOFLUORESCENT ASSAY (IFA) WITH HUMAN EPITHELIAL (HEP-2) CELL LINE SUBSTRATE. YAZMIN NON-REFLEX TO [id number] 00:00:00* Test Item Value Reference Range Interpretation Comme nts ANTI-NUCLEAR ANTIBODIES (aram t code = 3506) NEGATIVE Robert Ambrose AustinANA NON-REFLEX TO [id number] 00:00:00* Test Item Value Reference Range Interpretation Comme nts ANTI-NUCLEAR ANTIBODIES (aram t code = 3506) NEGATIVE Robert CaliANA NON-REFLEX TO [id number] 00:00:00* Test Item Value Reference Range Interpretation Comme nts ANTI-NUCLEAR ANTIBODIES (aram t code = 3506) NEGATIVE Robert Bailon NON-REFLEX TO [id number] 00:00:00* Test Item Value Reference Range Interpretation Comme nts ANTI-NUCLEAR ANTIBODIES (aram t code = 3506) NEGATIVE Robert CaliFOLATE, [id number] 12:42:51* Test Item Value Reference Range Interpretation [...] . . . NG/ML >1504 TSH, THIRD [id number] 11:05:54* Test Item Value Reference Range Interpretation Comme nts TSH, THIRD GENERATION (test code = 2821) 1.310 UIU/ML 0.400-4.100 VITAMIN [id number] 11:05:54* Test Item Value Reference Range Interpretation Comme nts VITAMIN B-12 (test code = 2840) 436 PG/ML 200-950 VITAMIN D, 25 [id number] 11:03:45* Test Item Value Reference Range Interpretation [...] . . . . . NG/ML 30-100 [facility] has important pathology staff changes effective 04/12/2022. New pathology staff will provide uninterrupted, excellent patient care and clinical consultation. See URL: [email or web address]. UNLESS OTHERWISE INDICATED, ALL TESTING PERFORMED AT [facility] [address] [place] [address] PRODUCTION SUPERINTENDENT HYDRO: CHARLA HERNANDEZ M.D. [place] NUMBER [id number] [facility] [place]. [id number] URIC [id number] 05:28:57* Test Item Value Reference Range Interpretation Comme nts URIC ACID (test code = 2233) 6.7 MG/DL 2.7-6.1 H COMPREHENSIVE METABOLIC [id number] 05:28:57* Test Item Value Reference Range Interpretation Comme nts GLUCOSE (test code = 2217) 103 MG/DL 70-99 H BUN (test code = 2208) 9 MG/DL 6-20 CREATININE (test code = 2214) 0.72 MG/DL 0.60-1.30 eGFR (2020 CKD-EPI) (test code = 90677) 106 ML/MIN/1.73 >60 CALC BUN/CREAT (test code [...] code = 2219) 26 U/L 5-40 LIPID [id number] 05:28:57* Test Item Value Reference Range Interpretation [...] SPECIMENS. FOR MOREINFORMATION, SEE CLIENT ANNOUNCEMENT AT [email or web address] RISK RATIO LDL/HDL (test code = 2238) 3.04 RATIO <3.22 HEMOGLOBIN [id number] 02:54:46* Test Item Value Reference Range Interpretation Comme nts HEMOGLOBIN A1c (test code = 18792) 5.6 % 4.2-5.6 CBC W/AUTO DIFF WITH [id number] 01:58:18* Test Item Value Reference Range Interpretation [...] 0.00-0.10 ABS NUCLEATED RBCS (test code = 74711) 0.00 K/UL 0.00-0.11 VITAMIN [id number] 00:00:00* Test Item Value Reference Range Interpretation Comme [facility] VITAMIN B-12 (test code = 2840) 436 PG/ML Robert CaliFOLATE, [id number] 00:00:00* Test Item Value Reference Range Interpretation Comme [facility] HEMATOCRIT (test code = 1004) 28.7 % FOLATE, RBC (test code = 2690) 1185 NG/ML Robert CaliURIC [id number] 00:00:00* Test Item Value Reference Range Interpretation Comme [facility] URIC ACID (test code = 2233) 6.7 MG/DL Robert CaliVITAMIN D, 25 [id number] 00:00:00* Test Item Value Reference Range Interpretation Comme [facility] VITAMIN D, 25 [place] (test code = 4958) 13 NG/ML Robert CaliCOMPREHENSIVE METABOLIC [id number] 00:00:00* Test Item Value Reference Range Interpretation Comme [facility] GLUCOSE (test code = 2217) 103 MG/DL BUN (test code = 2208) 9 MG/DL CREATININE (test code = 2214) 0.72 MG/DL eGFR (2020 CKD-EPI) (test code = 72460) 106 ML/MIN/1.73 CALC BUN/CREAT (test code = [...] code = 2219) 26 U/L Robert CaliLIPID [id number] 00:00:00* Test Item Value Reference Range Interpretation Comme nts CHOLESTEROL (test code = 2210) 207 MG/DL TRIGLYCERIDES (test code = 2232) 130 MG/DL HDL CHOLESTEROL (test code = 2220) 45 MG/DL CALC LDL CHOL (test code = 2237) 137 MG/DL RISK RATIO LDL/HDL (test cod e = 2238) 3.04 RATIO Robert CaliHEMOGLOBIN [id number] 00:00:00* Test Item Value Reference Range Interpretation Comme nts HEMOGLOBIN A1c (test code = 45546) 5.6 % Robert Ambrose VirajCBC W/AUTO [id number] 00:00:00* Test Item Value Reference Range Interpretation [...] ABS NUCLEATED RBCS (test cod e = 28671) 0.00 K/UL Robert FullerH, THIRD [id number] 00:00:00* Test Item Value Reference Range Interpretation Comme [facility] TSH, THIRD GENERATION (test code = 2821) 1.310 UIU/ML Robert CaliVITAMIN [id number] 00:00:00* Test Item Value Reference Range Interpretation Comme [facility] VITAMIN B-12 (test code = 2840) 436 PG/ML Robert CaliFOLATE, [id number] 00:00:00* Test Item Value Reference Range Interpretation Comme [facility] HEMATOCRIT (test code = 1004) 28.7 % FOLATE, RBC (test code = 2690) 1185 NG/ML Robert CaliURIC [id number] 00:00:00* Test Item Value Reference Range Interpretation Comme [facility] URIC ACID (test code = 2233) 6.7 MG/DL Robert CaliVITAMIN D, 25 [id number] 00:00:00* Test Item Value Reference Range Interpretation Comme [facility] VITAMIN D, 25 [place] (test code = 4958) 13 NG/ML Robert CaliCOMPREHENSIVE METABOLIC [id number] 00:00:00* Test Item Value Reference Range Interpretation Comme nts GLUCOSE (test code = 2217) 103 MG/DL BUN (test code = 2208) 9 MG/DL CREATININE (test code = 2214) 0.72 MG/DL eGFR (2020 CKD-EPI) (test code = 96837) 106 ML/MIN/1.73 CALC BUN/CREAT (test code = [...] code = 2219) 26 U/L Robert CaliLIPID [id number] 00:00:00* Test Item Value Reference Range Interpretation Comme nts CHOLESTEROL (test code = 2210) 207 MG/DL TRIGLYCERIDES (test code = 2232) 130 MG/DL HDL CHOLESTEROL (test code = 2220) 45 MG/DL CALC LDL CHOL (test code = 2237) 137 MG/DL RISK RATIO LDL/HDL (test cod e = 2238) 3.04 RATIO Robert CaliHEMOGLOBIN [id number] 00:00:00* Test Item Value Reference Range Interpretation Comme nts HEMOGLOBIN A1c (test code = 28624) 5.6 % Robert CaliCBC W/AUTO [id number] 00:00:00* Test Item Value Reference Range Interpretation [...] ABS NUCLEATED RBCS (test cod e = 18264) 0.00 K/UL Robert FullerH, THIRD [id number] 00:00:00* Test Item Value Reference Range Interpretation Comme nts TSH, THIRD GENERATION (test code = 2821) 1.310 UIU/ML Robert CaliVITAMIN [id number] 00:00:00* Test Item Value Reference Range Interpretation Comme nts VITAMIN B-12 (test code = 2840) 436 PG/ML Robert CaliFOLATE, [id number] 00:00:00* Test Item Value Reference Range Interpretation Comme nts HEMATOCRIT (test code = 1004) 28.7 % FOLATE, RBC (test code = 2690) 1185 NG/ML Robetr CaliURIC [id number] 00:00:00* Test Item Value Reference Range Interpretation Comme nts URIC ACID (test code = 2233) 6.7 MG/DL Robert CaliVITAMIN D, 25 [id number] 00:00:00* Test Item Value Reference Range Interpretation Comme nts VITAMIN D, 25 [place] (test code = 4958) 13 NG/ML Robert CaliCOMPREHENSIVE METABOLIC [id number] 00:00:00* Test Item Value Reference Range Interpretation Comme nts GLUCOSE (test code = 2217) 103 MG/DL BUN (test code = 2208) 9 MG/DL CREATININE (test code = 2214) 0.72 MG/DL eGFR (2020 CKD-EPI) (test code = 79870) 106 ML/MIN/1.73 CALC BUN/CREAT (test code = [...] code = 2219) 26 U/L Robert CaliLIPID [id number] 00:00:00* Test Item Value Reference Range Interpretation Comme nts CHOLESTEROL (test code = 2210) 207 MG/DL TRIGLYCERIDES (test code = 2232) 130 MG/DL HDL CHOLESTEROL (test code = 2220) 45 MG/DL CALC LDL CHOL (test code = 2237) 137 MG/DL RISK RATIO LDL/HDL (test cod e = 2238) 3.04 RATIO Robert CaliHEMOGLOBIN [id number] 00:00:00* Test Item Value Reference Range Interpretation Comme nts HEMOGLOBIN A1c (test code = 82795) 5.6 % Robert Ambrose VirajCBC W/AUTO [id number] 00:00:00* Test Item Value Reference Range Interpretation [...] ABS NUCLEATED RBCS (test cod e = 49230) 0.00 K/UL Robert CaliTSH, THIRD [id number] 00:00:00* Test Item Value Reference Range Interpretation Comme [facility] TSH, THIRD GENERATION (test code = 2821) 1.310 UIU/ML Robert CaliVITAMIN [id number] 00:00:00* Test Item Value Reference Range Interpretation Comme [facility] VITAMIN B-12 (test code = 2840) 436 PG/ML Robert CaliFOLATE, [id number] 00:00:00* Test Item Value Reference Range Interpretation Comme nts HEMATOCRIT (test code = 1004) 28.7 % FOLATE, RBC (test code = 2690) 1185 NG/ML Robert CaliURIC [id number] 00:00:00* Test Item Value Reference Range Interpretation Comme [facility] URIC ACID (test code = 2233) 6.7 MG/DL Robert CaliVITAMIN D, 25 [id number] 00:00:00* Test Item Value Reference Range Interpretation Comme [facility] VITAMIN D, 25 [place] (test code = 4958) 13 NG/ML Robert CaliCOMPREHENSIVE METABOLIC [id number] 00:00:00* Test Item Value Reference Range Interpretation Comme nts GLUCOSE (test code = 2217) 103 MG/DL BUN (test code = 2208) 9 MG/DL CREATININE (test code = 2214) 0.72 MG/DL eGFR (2020 CKD-EPI) (test code = 49540) 106 ML/MIN/1.73 CALC BUN/CREAT (test code = [...] code = 2219) 26 U/L Robert CaliLIPID [id number] 00:00:00* Test Item Value Reference Range Interpretation Comme nts CHOLESTEROL (test code = 2210) 207 MG/DL TRIGLYCERIDES (test code = 2232) 130 MG/DL HDL CHOLESTEROL (test code = 2220) 45 MG/DL CALC LDL CHOL (test code = 2237) 137 MG/DL RISK RATIO LDL/HDL (test cod e = 2238) 3.04 RATIO Robert CaliHEMOGLOBIN [id number] 00:00:00* Test Item Value Reference Range Interpretation Comme nts HEMOGLOBIN A1c (test code = 56144) 5.6 % Robert Ambrose VirajCBC W/AUTO [id number] 00:00:00* Test Item Value Reference Range Interpretation [...] ABS NUCLEATED RBCS (test cod e = 00320) 0.00 K/UL [facility] [id number] 00:00:00* Test Item Value Reference Range Interpretation Comme nts TSH, THIRD GENERATION (test code = 2821) 1.310 UIU/ML Robert [id number] 20:05:22* Test Item Value Reference Range Interpretation Comme nts [place] (test code = 3985785290) 1.1 mmol/L 0.6-1.2 ZAINAB (test code = ZAINAB) Toxic Range: ? Greater than 1.2 mmol/L Lab Interpretation (test code = 98516-8) [facility]2023-01-04 20:05:22* Test Item Value Reference Range Interpretation Comme nts [place] (test code = 2485990366) 1.1 mmol/L 0.6-1.2 ZAINAB (test code = ZAINAB) Toxic Range: ? Greater than 1.2 mmol/L Lab Interpretation (test code = 01319-7) Normal [facility]2023-01-04 20:05:22* Test Item Value Reference Range Interpretation Comme nts [place] (test code = 5789333860) 1.1 mmol/L 0.6-1.2 ZAINAB (test code = ZAINAB) Toxic Range: ? Greater than 1.2 mmol/L Lab Interpretation (test code = 23283-6) [facility]2023-01-04 20:05:22* Test Item Value Reference Range Interpretation Comme nts [place] (test code = 6217184954) 1.1 mmol/L 0.6-1.2 ZAINAB (test code = ZAINAB) Toxic Range: ? Greater than 1.2 mmol/L Lab Interpretation (test code = 94882-8) [address]01-04 20:05:22* Test Item Value Reference Range Interpretation Comme nts [place] (test code = 9754207952) 1.1 mmol/L 0.6-1.2 ZAINAB (test code = ZAINAB) Toxic Range: ? Greater than 1.2 mmol/L Lab Interpretation (test code = 49649-0) [address]01-04 20:05:22* Test Item Value Reference Range Interpretation Comme nts [place] (test code = 8145883398) 1.1 mmol/L 0.6-1.2 ZAINAB (test code = ZAINAB) Toxic Range: ? Greater than 1.2 mmol/L Lab Interpretation (test code = 55661-6) [address]01-04 20:05:22* Test Item Value Reference Range Interpretation Comme nts [place] (test code = 2781449047) 1.1 mmol/L 0.6-1.2 ZAINAB (test code = ZAINAB) Toxic Range: ? Greater than 1.2 mmol/L Lab Interpretation (test code = 43730-8) [address]01-04 20:05:22* Test Item Value Reference Range Interpretation Comme nts [place] (test code = 3086575257) 1.1 mmol/L 0.6-1.2 ZAINAB (test code = ZAINAB) Toxic Range: ? Greater than 1.2 mmol/L Lab Interpretation (test code = 07244-3) [facility] 20:05:22* Test Item Value Reference Range Interpretation Comme nts [place] (test code = 5691027660) 1.1 mmol/L 0.6-1.2 ZAIANB (test code = ZAINAB) Toxic Range: ? Greater than 1.2 mmol/L Lab Interpretation (test code = 40633-1) [facility] 20:05:22* Test Item Value Reference Range Interpretation Comme nts [place] (test code = 9692085080) 1.1 mmol/L 0.6-1.2 ZAINAB (test code = ZAINAB) Toxic Range: ? Greater than 1.2 mmol/L Lab Interpretation (test code = 61854-5) [facility], 25 [id number] 00:00:00* Test Item Value Reference Range Interpretation Comme nts VITAMIN D, 25 [place] (test code = 4958) 17 NG/ML [facility] [id number] 00:00:00* Test Item Value Reference Range Interpretation [...] ABS NUCLEATED RBCS (test cod e = 24510) 0.00 K/UL Robert CaliHEMOGLOBIN [id number] 00:00:00* Test Item Value Reference Range Interpretation Comme nts HEMOGLOBIN A1c (test code = 51435) 5.5 % Robert CaliLIPID [id number] 00:00:00* Test Item Value Reference Range Interpretation Comme nts CHOLESTEROL (test code = 2210) 181 MG/DL TRIGLYCERIDES (test code = 2232) 81 MG/DL HDL CHOLESTEROL (test code = 2220) 46 MG/DL CALC LDL CHOL (test code = 2237) 117 MG/DL RISK RATIO LDL/HDL (test cod e = 2238) 2.54 RATIO Robert CaliCOMPREHENSIVE METABOLIC [id number] 00:00:00* Test Item Value Reference Range Interpretation Comme nts GLUCOSE (test code = 2217) 102 MG/DL BUN (test code = 2208) 10 MG/DL CREATININE (test code = 2214) 0.67 MG/DL eGFR AMER. (test cod e = 44012) 126 ML/MIN/1.73 eGFR NON- AMER. (test code = 64716) 108 ML/MIN/1.73 CALC BUN/CREAT (test code = [...] (test code = 2219) 18 U/L Robert [id number] 00:00:00* Test Item Value Reference Range Interpretation Comme nts TSH, THIRD GENERATION (test code = 2821) 1.140 UIU/ML Robert CaliVITAMIN D, 25 [id number] 00:00:00* Test Item Value Reference Range Interpretation Comme nts VITAMIN D, 25 [place] (test code = 4958) 17 NG/ML Robert CaliCBC W/AUTO [id number] 00:00:00* Test Item Value Reference Range Interpretation [...] ABS NUCLEATED RBCS (test cod e = 39105) 0.00 K/UL Robert CaliHEMOGLOBIN [id number] 00:00:00* Test Item Value Reference Range Interpretation Comme nts HEMOGLOBIN A1c (test code = 90231) 5.5 % Robert CaliLIPID [id number] 00:00:00* Test Item Value Reference Range Interpretation Comme nts CHOLESTEROL (test code = 2210) 181 MG/DL TRIGLYCERIDES (test code = 2232) 81 MG/DL HDL CHOLESTEROL (test code = 2220) 46 MG/DL CALC LDL CHOL (test code = 2237) 117 MG/DL RISK RATIO LDL/HDL (test cod e = 2238) 2.54 RATIO Robert CaliCOMPREHENSIVE METABOLIC [id number] 00:00:00* Test Item Value Reference Range Interpretation Comme nts GLUCOSE (test code = 2217) 102 MG/DL BUN (test code = 2208) 10 MG/DL CREATININE (test code = 2214) 0.67 MG/DL eGFR AMER. (test cod e = 13501) 126 ML/MIN/1.73 eGFR NON- AMER. (test code = 39721) 108 ML/MIN/1.73 CALC BUN/CREAT (test code = [...] (test code = 2219) 18 U/L Robert [id number] 00:00:00* Test Item Value Reference Range Interpretation Comme [facility] TSH, THIRD GENERATION (test code = 2821) 1.140 UIU/ML Robert CaliVITAMIN D, 25 [id number] 00:00:00* Test Item Value Reference Range Interpretation Comme [facility] VITAMIN D, 25 [place] (test code = 4958) 17 NG/ML Robert CaliCBC W/AUTO [id number] 00:00:00* Test Item Value Reference Range Interpretation [...] ABS NUCLEATED RBCS (test cod e = 55235) 0.00 K/UL Robert CaliHEMOGLOBIN [id number] 00:00:00* Test Item Value Reference Range Interpretation Comme nts HEMOGLOBIN A1c (test code = 59295) 5.5 % Robert CaliLIPID [id number] 00:00:00* Test Item Value Reference Range Interpretation Comme nts CHOLESTEROL (test code = 2210) 181 MG/DL TRIGLYCERIDES (test code = 2232) 81 MG/DL HDL CHOLESTEROL (test code = 2220) 46 MG/DL CALC LDL CHOL (test code = 2237) 117 MG/DL RISK RATIO LDL/HDL (test cod e = 2238) 2.54 RATIO Robert CaliCOMPREHENSIVE METABOLIC [id number] 00:00:00* Test Item Value Reference Range Interpretation Comme nts GLUCOSE (test code = 2217) 102 MG/DL BUN (test code = 2208) 10 MG/DL CREATININE (test code = 2214) 0.67 MG/DL eGFR AMER. (test cod e = 35316) 126 ML/MIN/1.73 eGFR NON- AMER. (test code = 66660) 108 ML/MIN/1.73 CALC BUN/CREAT (test code = [...] (test code = 2219) 18 U/L Robert [id number] 00:00:00* Test Item Value Reference Range Interpretation Comme [facility] TSH, THIRD GENERATION (test code = 2821) 1.140 UIU/ML Robert CaliVITAMIN D, 25 [id number] 00:00:00* Test Item Value Reference Range Interpretation Comme [facility] VITAMIN D, 25 [place] (test code = 4958) 17 NG/ML Robert CaliCBC W/AUTO [id number] 00:00:00* Test Item Value Reference Range Interpretation Comme [facility] WBC (test code = 1001) 7.2 K/UL [...] ABS NUCLEATED RBCS (test cod e = 89956) 0.00 K/UL Robert CaliHEMOGLOBIN [id number] 00:00:00* Test Item Value Reference Range Interpretation Comme nts HEMOGLOBIN A1c (test code = 77873) 5.5 % Robert CaliLIPID [id number] 00:00:00* Test Item Value Reference Range Interpretation Comme nts CHOLESTEROL (test code = 2210) 181 MG/DL TRIGLYCERIDES (test code = 2232) 81 MG/DL HDL CHOLESTEROL (test code = 2220) 46 MG/DL CALC LDL CHOL (test code = 2237) 117 MG/DL RISK RATIO LDL/HDL (test cod e = 2238) 2.54 RATIO Robert CaliCOMPREHENSIVE METABOLIC [id number] 00:00:00* Test Item Value Reference Range Interpretation Comme nts GLUCOSE (test code = 2217) 102 MG/DL BUN (test code = 2208) 10 MG/DL CREATININE (test code = 2214) 0.67 MG/DL eGFR AMER. (test cod e = 78893) 126 ML/MIN/1.73 eGFR NON- AMER. (test code = 72465) 108 ML/MIN/1.73 CALC BUN/CREAT (test code = [...] <0.2 MG/DL ALKALINE PHOSPHATASE (test code = 220) 127 U/L AST (test code = 2218) 18 U/L ALT (test code = 2219) 18 U/L Robert [id number] 00:00:00* Test Item Value Reference Range Interpretation [...] mg/dL VERY HIGH.........>/= 190 mg/dL Comments to [employer] Worker: ADD TO AM LABSLIPID PROFILE (CORONARY RISK)2018-07-20 [...] code = LDL) MG/DL 0-99 Comments to [employer] Worker: ADD TO AM LABSPROTHROMBIN [id number] 06:24:00* Test Item Value Reference Range Interpretation [...] systemic embolism. 3.0 - 4.5 Comments to [employer] Worker: NURSE WILL BRING SPECIMEN TO LABPTT ACTIVATED 2018-07-20 06:24:00* Test Item Value Reference Range Interpretation Comme nts PTT ACTIVATED (test code = APTT) 29.3 SECONDS 22.0-33.0 N Comments to [employer] Worker: NURSE WILL BRING SPECIMEN TO LABBASIC METABOLIC [...] CA) 9.6 MG/DL 8.4-10.2 N Comments to [employer] Worker: NURSE WILL BRING SPECIMEN TO LAB Comments to [employer] Worker: NURSE WILL BRING SPECIMEN TO [id number] 06:13:00* Test Item Value Reference Range Interpretation Comme nts MAGNESIUM (test code = MAG) 2.2 MG/DL 1.6-2.3 N Comments to [employer] Worker: NURSE WILL BRING SPECIMEN TO LAB Comments to [employer] Worker: NURSE WILL BRING SPECIMEN TO LABCBC W/AUTO [id number] 06:02:00 * Test Item Value Reference Range [...] (test code = NRBC#) 0.00 K/mm3 0.0-0.1 N"
--- NOTE | 2024-01-21 10:48 | ER ---
Nurse's Notes [facility] Name: Shivani Lagunas Age: 48 yrs Sex: Female : 1975 Arrival Date: 01/21/2024 Time: 09:49 Bed IW2 Private MD: Diagnosis: Anxiety disorder, unspecified;Acute stress reaction Presentation: 01/20 10:15 Chief complaint: Patient states: tense muscles all over body that is causing her to ss feel anxious. Coronavirus screen: Client denies travel out of the [place] in the last 14 days. Ebola Screen: Patient denies exposure to infectious person. Patient denies travel to an Ebola-affected area in the 21 days before illness onset. Initial Sepsis Screen: Does the patient meet any 2 criteria? No. Patient's initial sepsis screen is negative. Does the patient have a suspected source of infection? No. Patient's initial sepsis screen is negative. Risk Assessment: Do you want to hurt yourself or someone else? Patient reports no desire to harm self or others. Onset of symptoms is unknown. 10:15 Method Of Arrival: Ambulatory ss 10:15 Acuity: ALICIA 3 ss Historical: - Allergies: 10:17 Sulfa (Sulfonamide Antibiotics); ss - PMHx: 10:17 Bipolar disorder; Congestive heart failure; Hypertensive disorder; Schizophrenia; ss - PSHx: 10:17 Appendectomy; section; Cholecystectomy; ss - Immunization history:: Client reports receiving the 2nd dose of the Covid vaccine. - Infectious Disease History:: Denies. - Social history:: Smoking status: Patient denies any tobacco usage or history of. Screenin:59 Abuse screen: Denies threats or abuse. Denies injuries from another. Nutritional ss screening: No deficits noted. Tuberculosis screening: Never had TB. Assessment: 10:15 General: Appears in no apparent distress. comfortable, Behavior is calm, cooperative. ss General: Pt denies pain, but states, "it's not pain. My muscles are tense/ tight and then it makes me really anxious." . Pain: Denies pain. Neuro: Level of Consciousness is awake, alert, obeys commands, Oriented to person, place, time, situation. Respiratory: Airway is patent Respiratory effort is even, unlabored, Respiratory pattern is regular, symmetrical, Denies cough, shortness of breath. GI: Patient currently denies abdominal pain, diarrhea, pain, vomiting. Derm: Skin is pink, warm \\T\\ dry. normal. 10:25 Reassessment: Dr. Beck assessing patient in triage at this time. ss 10:59 Reassessment: Patient appears in no apparent distress at this time. Patient and/or ss family updated on plan of care and expected duration. Pain level reassessed. Patient is alert, oriented x 3, equal unlabored respirations, skin warm/dry/pink. Vital Signs: 10:15 BP 157 / 94; Pulse 90; Resp 16; Temp 98.3; Pulse Ox 100% on R/A; Weight 96.16 kg; ss Height 5 ft. 6 in. ; Pain 0/10; 10:15 Body Mass Index 34.22 (96.16 kg, 167.64 cm) ss 10:15 Pain Scale: Adult ss ED Course: 09:53 Patient arrived in ED. al6 09:54 Sherri Beck MD is Attending Physician. gb1 10:15 Patient has correct armband on for positive identification. ss 10:17 Triage completed. ss 10:17 Arm band placed on left wrist. ss 10:59 Yvonne Walker RN is Primary Nurse. ss 10:59 Patient has correct armband on for positive identification. Bed in low position. ss 10:59 No provider procedures requiring assistance completed. Patient did not have IV access ss during this emergency room visit. Administered Medications: No medications were administered Medication: 10:59 VIS not applicable for this client. ss Outcome: 10:48 Discharge ordered by . gb1 10:59 Discharged to home ambulatory, ss 10:59 Condition: good 10:59 Discharge instructions given to patient, family, Instructed on discharge instructions, follow up and referral plans. medication usage, Demonstrated understanding of instructions, follow-up care, medications, Prescriptions given X 1, 11:01 Patient left the ED. ss Signatures: Yvonne Walker RN RN Sherri Beck MD MD gb1 Bella Chavira al6
--- NOTE | 2024-01-21 10:49 | EDPHYS ---
Physician Documentation [facility] Name: Shivani Lagunas Age: 48 yrs Sex: Female : 1975 Arrival Date: 01/21/2024 Time: 09:49 Bed IW2 Private MD: ED Physician Sherri Beck HPI: 01/20 10:50 This 48 yrs old Female presents to ER via Ambulatory with complaints of gb1 Seizure, body aches. 10:50 48-year-old female here with what she complaining of many seizures secondary to gb1 stress and bodyaches. Patient's been caring for her [id number] as well as health issues with her 2 daughters with questionable terminal diseases. She has a history of schizophrenia, hypertension, CHF and bipolar disorder. Patient denies any chest pain or shortness of breath. She denies any fall or trauma.. Historical: - Allergies: 10:17 Sulfa (Sulfonamide Antibiotics); ss - PMHx: 10:17 Bipolar disorder; Congestive heart failure; Hypertensive disorder; Schizophrenia; ss - PSHx: 10:17 Appendectomy; section; Cholecystectomy; ss - Immunization history:: Client reports receiving the 2nd dose of the Covid vaccine. - Infectious Disease History:: Denies. - Social history:: Smoking status: Patient denies any tobacco usage or history of. Exam: 10:50 Constitutional: This is a well developed, well nourished patient who is awake, alert, gb1 and in no acute distress. Head/Face: Normocephalic, atraumatic. Eyes: Pupils equal round and reactive to light, extra-ocular motions intact. Lids and lashes normal. Conjunctiva and sclera are non-icteric and not injected. Cornea within normal limits. Periorbital areas with no swelling, redness, or edema. ENT: Nares patent. No nasal discharge, no septal abnormalities noted. Tympanic membranes are normal and external auditory canals are clear. Oropharynx with no redness, swelling, or masses, exudates, or evidence of obstruction, uvula midline. Mucous membranes moist. Neck: Trachea midline, no thyromegaly or masses palpated, and no cervical lymphadenopathy. Supple, full range of motion without nuchal rigidity, or vertebral point tenderness. No Meningismus. Chest/axilla: Normal chest wall appearance and motion. Nontender with no deformity. No lesions are appreciated. Cardiovascular: Regular rate and rhythm with a normal S1 and S2. No gallops, murmurs, or rubs. Normal PMI, no JVD. No pulse deficits. Respiratory: Lungs have equal breath sounds bilaterally, clear to auscultation and percussion. No rales, rhonchi or wheezes noted. No increased work of breathing, no retractions or nasal flaring. Abdomen/GI: Soft, non-tender, with normal bowel sounds. No distension or tympany. No guarding or rebound. No evidence of tenderness throughout. Skin: Warm, dry with normal turgor. Normal color with no rashes, no lesions, and no evidence of cellulitis. MS/ Extremity: Pulses equal, no cyanosis. Neurovascular intact. Full, normal range of motion. Vital Signs: 10:15 BP 157 / 94; Pulse 90; Resp 16; Temp 98.3; Pulse Ox 100% on R/A; Weight 96.16 kg; ss Height 5 ft. 6 in. ; Pain 0/10; 10:15 Body Mass Index 34.22 (96.16 kg, 167.64 cm) ss 10:15 Pain Scale: Adult ss MDM: 10:15 Medical Screening Exam initiated gb1 10:50 Data reviewed: vital signs, nurses notes. ED course: 48-year-old female under a lot of gb1 acute stressors. She does not have good coping skills and I did recommend outpatient therapy versus counseling. Patient requested muscle relaxer which I obliged and recommended that she follow-up with her primary care doctor. I doubt status epilepticus or any signs of generalized either disorder.. Administered Medications: No medications were administered Disposition Summary: 01/21/24 10:48 Discharge Ordered Notes: Location: Home gb1 Condition: Stable gb1 Diagnosis - Anxiety disorder, unspecified gb1 - Acute stress reaction gb1 Followup: gb1 - With: Private Physician - When: - Reason: Recheck today's complaints Discharge Instructions: - Discharge Summary Sheet gb1 - Stress, Adult gb1 - Panic Attack, [id number] gb1 Forms: - Medication Reconciliation Form gb1 - Antibiotic Education gb1 - Prescription Opioid Use gb1 - Patient Portal Instructions gb1 - Leadership Thank You Letter gb1 Prescriptions: - methocarbamol 500 mg Oral tablet - take 1 tablet ORAL route every 8 to 12 hours; 10 tablet; Refills: 0, Product gb1 Selection Permitted Signatures: Yvonne Walker, RN RN ss Kiran, MD LIZETTE Polanco gb1
[2024-01-21 14:09] VITALS: BP 157/94; TEMP 98.3; O2SAT 100
== END 2024-01-21 11:01 | disposition home or self-care (01) ==
LOC: ER 09:49
DX: F43.0 Acute stress reaction (principal); F41.9 Anxiety disorder, unspecified
CPT/HCPCS: 99283

== ENCOUNTER 2024-02-08 16:17 | Emergency (ER) | payer OTHER ==
--- OUTSIDE RECORDS SUMMARY | 2024-02-08 16:36 | XMS REPORT | Continuity of Care Document ---
Author Name Unknown Address [address] [facility] [address] [place] [address] [facility] thconnect Address [address] [facility] [address] [place] [address] Care Team Providers Care Executive Casino Host Name Role Phone Reji Montiel, [facility] Primary Care Physician Jae Holloway Attending Clinician Unavailable Doctor Unassigned, Holt Attending Clinician U Tavon Ruth MD Attending Clinician [phone] ALESHA CROWE Attending Clinician Unavailable Elidia Cordero MD Attending Clinician [phone] Dominic Keita MD Attending Clinician [phone] Jose Westbrook MD Attending Clinician [phone] JOSE WESTBROOK Attending Clinician Unavailable FARZANA SAUCEDA Attending Clinician Unavailable MARYSOL PABON Attending Clinician Unavailable MARYSOL PABON Attending Clinician Unavailable Marysol Pabon DO Attending Clinician [phone] Rhiannon Vizcarra MD Attending Clinician + [phone] Dominic Keita MD Attending Clinician [phone] DAVIDSON SUTHERLAND Attending Clinician Unavailable Consuelo BAUER, Elidia Gamble Attending Clinician +[phone] EMILIA SNOWDEN Attending Clinician Annia vailable Doctor Unassigned, Holt Attending Clinician U SARA Day Attending Clinician UnavailSARA Dorado Attending Clinician UnavailJewel Forbes MD Attending Clinician + [phone] [facility] Attending Clinician Unavailable JEWEL CUNHA Attending Clinician Unavaila JENNY Norton Attending Clinician Unavailable JENNY ARRIAGA Attending Clinician Unavailable Dexter Dias MD Attending Clinician [phone] Davidson Sutherland MD Attending Clinician [phone] [facility] Attending Clinician Unavailable DEXTER DIAS Attending Clinician Unavailable [email or web address]_S Attending Clinician Unavaila ONEIDA Del Rosario Attending Clinician Unavailable DOMINIC KEITA Attending Clinician UnavailHunter Sahni MD Attending Clinician [phone] Ting Grissom MD Attending Clinician [phone] RADIOLOGY Attending Clinician Unavailable DORA NEWMAN Attending Clinician Unavailable Dora Newman NP Attending Clinician + [phone] Kath Vences MD Attending Clinician + [phone] P[facility], [facility] Attending Clinician UnavailKATH Grady Attending Clinician Unavailchris russell Pathology Attending Clinician Unavailable IGOR SAAVEDRA Attending Clinician Unavaila HILARY Ramires Attending Clinician UnavailHILARY Conrad Attending Clinician UnavailIgor pfeiffer Rai, MD Attending Clinician Unava ilGIGI Juarez Attending Clinician Unavailable Gigi Monroy DO Attending Clinician [phone] Zane Martinez MD Attending Clinician [phone] Marycruz VAZQUEZ, Deonte Attending Clinician Unavailable UNKNOWN, ATTENDING Attending Clinician UnavailSALLY Lara Attending Clinician Unavail able SALLY MITCHELL Attending Clinician Unavail able Salbador Lockwood MD Attending Clinician [phone] SALBADOR LOCKWOOD Attending Clinician Unavailable HALIMA CONNOR Attending Clinician Unavailab Halima Choi DO Attending Clinician [phone] ROBERT NOWAK Attending Clinician Unavail able Patti Hutton Attending Clinician [phone] CRISTO MARTINEZ Attending Clinician Unavail able JEWEL MORAES Attending Clinician UnaKATH Sen Attending Clinician Unav ANGELA Richardson Attending Clinician Unavailab RHIANNON Durant Admitting Clinician Unavailable [email or web address]_S Admitting Clinician Unavaila DOMINIC Watts Admitting Clinician Unavailchris Keita MD, Dominic Admitting Clinician [phone] Payers Payer Name Policy Type Policy Number Effective Date Expirati on Date Source [facility] [id number] 2023 00:00:00 [facility] [place] [id number] 2022 00:00:00 MEDICAID SSI PENDING PENDING 2021 00:00:00 Problems Condition Name Condition Details Condition Category Status Onset Date Resolution Date Last Treatment Date Treating Clinician Comments Source Atrial fibrillati on Atrial Fibrillati on Problem Active 2023-02 00:00: 00 [facility] Acute urinary tract infection Acute Urinary Tract Infection Problem Active 2023-02 00:00: 00 [facility] Irregular periods Irregular Periods Problem Active 2023-02 00:00: 00 [facility] Hyperlipid emia Hyperlipid emia Problem Active 2023-02 00:00: 00 [facility] Anxiety Anxiety Problem Active 2023-02 00:00: 00 [facility] Depressive disorder Depressive Disorder Problem Active 2023-02 00:00: 00 [facility] Essential hypertensi on Essential Hypertensi on Problem Active 2023-02 00:00: 00 [facility] Iron deficiency anemia due to chronic blood loss Iron deficiency anemia due to chronic blood loss Disease Active 10-19 00:00: 00 [facility] Gastroesop hageal reflux disease, unspecifie d whether esophagiti s present Gastroesop hageal reflux disease, unspecifie d whether esophagiti s present Disease Active 10-19 00:00: 00 [facility] Arrhythmia Arrhythmia Disease Active 10-18 00:00: 00 [facility] Anemia Anemia Disease Active 02-17 00:00: 00 [facility] Bipolar 1 disorder, depressed Bipolar 1 disorder, depressed Disease Active 2019-02 00:00: 00 [facility] Gout Gout Disease Active 08-17 00:00: 00 [facility] Severe headache Severe headache Disease Active 1998-02 00:00: 00 [facility] Insomnia disorder Insomnia disorder Disease Active 1989-02 00:00: 00 [facility] Anxiety Anxiety Disease Active 10-18 00:00: 00 [facility] No known active problems No known active problems Disease [facility] Constipate d Constipate d Problem [facility] Imaging of brain abnormal Abnormal brain scan Problem [facility] Seizure Seizure Problem [facility] Chronic intractabl e migraine without aura Chronic migraine without aura, intractabl e, without status migrainosu s Problem [facility] Skin sensation disturbanc e Facial tingling sensation Problem [facility] Magnetic resonance imaging of brain abnormal White matter abnormalit y on MRI of brain Problem [facility] Disorder of autonomic nervous system Autonomic dysfunctio n Problem [facility] Benign intracrani al hypertensi on Elevated intracrani al pressure Problem [facility] Myoclonus Myoclonic jerking Problem [facility] Cervical dystonia Cervical dystonia Problem [facility] Carpal tunnel syndrome Carpal tunnel syndrome, bilateral upper limbs Problem [facility] Peripheral neuropathy Peripheral neuropathy Problem [facility] Allergies, Adverse Reactions, Alerts Allergy Name Allergy Type Status Severity Reaction(s) Onset Date Inactive Date Treating Clinician Comments Source Sulfa Drugs (Not Checked) Propensi ty to adverse reaction to drug Active 2023-02 0-15 00:00: 00 [facility] Sulfa Antibiot ics - CLASS Propensi ty to adverse reaction to drug Active 5-10 00:00: 00 [facility] Sulfa (Sulfona mide Antibiot ics) Propensi ty to adverse reaction s Active Hives 4-24 00:00: 00 [facility] SULFA (SULFONA MIDE ANTIBIOT ICS) Drug Class Active Hives 424 00:00: 00 [facility] Substanc e with sulfonam chelo structur e and antibact erial mechanis m of action (substan ce) Substanc e with sulfonam chelo structur e and antibact erial mechanis m of action (substan ce) Active Unknown [facility] SULFA (SULFONA MIDE ANTIBIOT ICS) Allergy to substanc e Active [facility] Social History Social Habit Start Date Stop Date Quantity Comments Source Gender identity [facility] Sexual orientation U [facility] Sex Assigned At [facility] History of Tobacco Use [facility] History of Social function 2023-09-03 00:00:00 2023-09-03 00:00:00 [facility] Exposure to SARS-CoV-2 (event) 2022-02-05 00:00:00 2022-02-15 08:57:00 Not sure [facility] Tobacco use and exposure 2021-08-24 00:00:00 2021-08-24 00:00:00 Smokeless tobacco non-user [facility] Smoking Status Start Date Stop Date Source Never Smoker [facility] Medical Medications Ordered Medication Name Filled Medication Name Start Date Stop Date Current Medication? Ordering Clinician Indication Dosage Frequency Signature (SIG) Comments Components Source Venofer 200 mg iron/10 mL intravenous solution 2023-02-18 00:00: 00 Yes 10mg iron/10 mL [facility] traZODone 50 mg tablet 2023-02 2-16 00:00: 00 Yes [id number] Take 1-2 tablets daily at bedtime for sleep [facility] clonazePAM 1 mg tablet 2023-02 2-15 00:00: 00 Yes [id number] TAKE 1/2 TO 1 TABLET BY MOUTH ONCE DAILY NEEDED FOR SEVERE ANXIETY [facility] ketorolac 30 mg/mL (1 mL) injection solutionInj ect 1 mL every 6 hours by intramuscul ar route. ketorolac 30 mg/mL (1 mL) injection solutionInj ect 1 mL every 6 hours by intramuscul ar route. 2023-02 15:16: 58 No 1mL Q6H ketorolac 30 mg/mL (1 mL) injection solutionIn ject 1 mL every 6 hours by intramuscu lar route. [facility] traZODone 50 mg tablet 2023-02 00:00: 00 01-27 00:00 :00 No [id number] Take 1-2 tablets for sleep [facility] Cyclobenzap rine HCl 10 MG Cyclobenzap rine HCl 10 MG 2023-02 00:00: 00 No 1{table t_at_be dtime_a s_neede d} QD Cyclobenza amber HCl 10 MG Venofer 200 mg iron/10 mL intravenous solution 2023-02 00:00: 00 Yes 10mg iron/10 mL [facility] ibuprofen 800 mg tablet 2023-02- 00:00: 00 Yes 1mg [facility] Methocarbam ol 500 MG Methocarbam ol 500 MG 2023-0218 00:00: 00 No 1.5{tab lets} BID Methocarba mol 500 MG Botox 200 UNIT Botox 200 UNIT 2023-02 0-30 00:00: 00 No Botox 200 UNIT ibuprofen 800 mg tablet 2023-02 00:00: 00 Yes 1mg [facility] TRAZODONE 50 mg tablet 2023-02 00:00: 00 01-20 00:00 :00 No [id number] TAKE 1 AND 1/2 TABLET BY MOUTH AT BEDTIME [facility] Vitamin D3 25 mcg (1,000 unit) tablet 2023-0217 00:00: 00 Yes 1(1,000 unit) [facility] diclofenac sodium 75 mg tablet,mikal yed release 2023-02 0-15 00:00: 00 Yes 1mg [facility] clonazePAM 1 mg tablet - 00:00: 01-24 00:00 :00 No [id number] TAKE 1/2 TO 1 TABLET BY MOUTH ONCE DAILY NEEDED FOR SEVERE ANXIETY [facility] lithium carbonate CR 450 mg SR tablet 04 00:00: 00 11-14 00:00 :00 No [id number] 900mg Take 2 tablets by mouth at bedtime. [facility] traZODone 50 mg tablet 07 00:00: 00 12-10 00:00 :00 No [id number] 75mg Take 1.5 tablets by mouth at bedtime for 90 days. [facility] busPIRone 30 mg tablet 09-02 00:00: 00 01-07 00:00 :00 No [id number] 30mg Take 1 tablet by mouth in the morning and 1 tablet in the evening. [facility] clonazePAM (KLONOPIN) 1 mg tablet 09-02 00:00: 00 11-09 00:00 :00 No [id number] 1mg Take 1 tablet by mouth once daily as needed for Other (severe anxiety). Take 0.5mg to 1mg as needed for severe anxiety [facility] traZODone 50 mg tablet 08-27 00:00: 00 09-18 00:00 :00 No [id number] 50mg Take 1 tablet by mouth at bedtime. May cut tablet in half. Follow up for refills [facility] busPIRone 10 mg tablet 08-27 00:00: 00 09-02 00:00 :00 No [id number] 20mg Take 2 tablets by mouth in the morning and 2 tablets in the evening. Follow up for refills [facility] ferric derisomalto se (MONOFERRIC ) 100 mg iron/mL Soln 08-07 00:00: 00 08-08 04:59 :00 No [id number] 500mg Inject 500 mg intravenou sly once now for 1 dose. [facility] clonazePAM 1 mg tablet 08-01 00:00: 00 09-02 00:00 :00 No [id number] Take half to 1 tablet by mouth once daily as needed for extreme anxiety. Attempt to minimize use. Follow-up for continued refills. [facility] lithium carbonate CR 450 mg SR tablet 07-30 00:00: 00 10-16 00:00 :00 No [id number] 900mg Take 2 tablets by mouth at bedtime. [facility] omeprazole 40 mg capsule 07-25 00:00: 00 07-21 04:59 :00 No [id number] 40mg Take 1 capsule by mouth in the morning and 1 capsule in the evening. Take with meals. Do all this for 360 days. [facility] sucralfate 1 gram tablet 07-25 00:00: 00 10-24 04:59 :00 No [id number] 1g Take 1 tablet by mouth before meals and at bedtime for 90 days. [facility] traZODone 50 mg tablet 07-18 00:00: 00 08-26 00:00 :00 No [id number] 50mg Take 1 tablet by mouth at bedtime. May cut tablet in half. Follow up for refills [facility] busPIRone 10 mg tablet 06-21 00:00: 00 08-27 00:00 :00 No [id number] 20mg Take 2 tablets by mouth in the morning and 2 tablets in the evening. Follow up for refills [facility] traZODone 50 mg tablet 06-21 00:00: 00 07-18 00:00 :00 No [id number] 50mg Take 1 tablet by mouth at bedtime. May cut tablet in half. Follow up for refills [facility] clonazePAM 1 mg tablet 06-12 00:00: 00 07-30 00:00 :00 No [id number] Take half to 1 tablet by mouth once daily as needed for extreme anxiety. Attempt to minimize use. Follow-up for continued refills. [facility] iopamidol (ISOVUE 370-500 mL) injection 80 mL 06-07 02:57: 00 06-07 02:45 :00 No [id number] 80mL 80 mL, Intravenou s, ONCE, 1 dose, On Sun06/07/23 at 2200, Routine [facility] NaCl 0.9% (NS) injection 5 mL 06-07 02:36: 00 Yes 5mL 5 mL, Slow IV Push, PRN - SEE INSTRUCTIO NS, Starting on Sun06/07/23 at 2136, Until Discontinu ed, 10 mL [facility] traZODone 50 mg tablet 05-22 00:00: 00 06-21 00:00 :00 No [id number] 50mg Take 1 tablet by mouth at bedtime. May cut tablet in half. [facility] busPIRone 10 mg tablet 05-07 00:00: 00 06-21 00:00 :00 No [id number] 20mg Take 2 tablets by mouth in the morning and 2 tablets in the evening. [facility] traZODone 50 mg tablet 04-24 00:00: 00 05-22 00:00 :00 No [id number] 50mg Take 1 tablet by mouth at bedtime. May cut tablet in half. [facility] Ubrelvy 100 MG Ubrelvy 100 MG 02-24 00:00: 00 No Ubrelvy 100 MG losartan potassium (LOSARTAN ORAL) 02-15 09:55: 13 Yes 20mg Take 20 mg by mouth. [facility] propranolol 80 mg tablet 02-15 09:55: 13 Yes 80mg Take 1 tablet by mouth in the morning and 1 tablet in the evening. [facility] allopurinoL 100 mg tablet 02-15 09:55: 13 Yes 100mg Take 1 tablet by mouth in the morning. [facility] lithium carbonate CR 450 mg SR tablet 2022-02 00:00: 00 07-29 00:00 :00 No [id number] 900mg Take 2 tablets by mouth at bedtime. [facility] clonazePAM 1 mg tablet 2022-02- 00:00: 00 06-11 00:00 :00 No [id number] Take half to 1 tablet by mouth once daily as needed for extreme anxiety. Attempt to minimize use. [facility] busPIRone 10 mg tablet 2022-02 00:00: 00 05-07 00:00 :00 No [id number] 20mg Take 2 tablets by mouth in the morning and 2 tablets in the evening. [facility] traZODone 50 mg tablet 2022-02 00:00: 00 04-22 00:00 :00 No [id number] 50mg Take 1 tablet by mouth at bedtime. May cut tablet in half. [facility] TAKE 1 TABLET EVERY 4 HOURS NEEDED. 2022-02 00:00: 00 06-12 00:00 :00 No 10 [facility] busPIRone 15 mg tablet 2022-02 00:00: 00 01-22 00:00 :00 No [id number] 15mg Take 1 tablet by mouth in the morning and 1 tablet in the evening. [facility] lithium carbonate CR 450 mg SR tablet 2022-02 00:00: 00 01-22 00:00 :00 No [id number] 900mg Take 2 tablets by mouth at bedtime. [facility] traZODone 50 mg tablet 2022-02 00:00: 00 01-22 00:00 :00 No [id number] 50mg Take 1 tablet by mouth at bedtime. May cut tablet in half. [facility] clonazePAM 1 mg tablet 2022-02 00:00: 00 01-22 00:00 :00 No [id number] Take 1 tablet by mouth once daily as needed for extreme anxiety. Attempt to minimize use. [facility] busPIRone 15 mg tablet 2022-02 00:00: 00 12-20 00:00 :00 No [id number] 15mg Take 1 tablet by mouth in the morning and 1 tablet in the evening. [facility] lithium carbonate CR 450 mg SR tablet 2022-02 00:00: 00 12-20 00:00 :00 No [id number] 900mg Take 2 tablets by mouth at bedtime. [facility] traZODone 50 mg tablet 2022-02 00:00: 00 12-20 00:00 :00 No [id number] 50mg Take 1 tablet by mouth at bedtime. May cut tablet in half. [facility] TAKE 2 TABLETS ONCE A DAY BY MOUTH 2022-02 00:00: 00 06-12 00:00 :00 No 200 [facility] simethicone (GAS RELIEF (SIMETHICON E)) 40 mg/0.6 mL drops 2022-02 13:19: 00 11-13 16:49 :02 No PRN, Starting on Sun11/13/22 at 0819, Until Sun11/13/22 at 1149, Routine, Intra-op [facility] losartan potassium (LOSARTAN ORAL) 2022-02 09:49: 01 Yes 20mg Take 20 mg by mouth. [facility] propranolol 80 mg tablet 2022-02 09:49: 01 Yes 80mg Take 1 tablet by mouth in the morning and 1 tablet in the evening. [facility] allopurinoL 100 mg tablet 2022-02 09:49: 01 Yes 100mg Take 1 tablet by mouth in the morning. [facility] sucralfate 1 gram tablet 2022-02 00:00: 00 12-14 04:59 :00 No 1g Take 1 tablet by mouth in the morning and 1 tablet in the evening. Do all this for 30 days. [facility] ketorolac (TORADOL) injection 30 mg 11-03 17:00: 00 11-03 16:25 :00 No 30mg 30 mg, Slow IV Push, ONCE, 1 dose, On Sun11/03/22 at 1200, Routine [facility] NaCl 0.9% (NS) bolus infusion 500 mL 11-03 16:45: 00 11-03 18:14 :00 No 500mL at 999 mL/hr, 500 mL, IV Infusion, ONCE, 1 dose, On Sun11/03/22 at 1145, [facility] butalbital- acetaminoph en-caff (ESGIC) 50-325-40 mg tablet 1 tablet 11-03 16:00: 00 11-03 16:21 :00 No 1{tbl} 1 tablet, Oral, ONCE, 1 dose, [facility]22 [facility] 1100[facility] 10 mg 11-03 16:00: 00 11-03 16:27 :00 No 10mg 10 mg, Slow IV Push, ONCE, 1 dose, On Sun11/03/22 at 1100, 1 mL [facility] metoclopram chelo HCl (REGLAN) injection 10 mg 11-03 16:00: 00 11-03 16:28 :00 No 10mg 10 mg, Slow IV Push, ONCE, 1 dose, On Sun11/03/22 at 1100, [facility] diphenhydrA MINE (BENADRYL) injection 25 mg 11-03 16:00: 00 11-03 16:30 :00 No 25mg 25 mg, Slow IV Push, ONCE, 1 dose, On Sun11/03/22 at 1100, STAT [facility] atorvastati n 10 mg tablet 11-03 10:48: 00 11-03 00:00 :00 No 10mg Take 10 mg by mouth at bedtime. [facility] butalbital- acetaminoph en-caff 50-325-40 mg tablet 11-03 00:00: 00 Yes [id number] 1{tbl} Take 1 tablet by mouth every 6 (six) hours as needed for Pain (scale 7-10) or Pain (scale 4-6) for up to 12 doses. [facility] peg-electro lyte soln 236-22.74-6 .74 -5.86 gram solution 10-19 00:00: 00 11-03 00:00 :00 No [id number] Take as directed before colonoscop y [facility] TAKE 1 TABLET DAILY. 10-12 00:00: 00 06-12 00:00 :00 No 40 [facility] busPIRone 15 mg tablet 10-04 00:00: 00 12-13 00:00 :00 No [id number] 15mg Take 1 tablet by mouth in the morning and 1 tablet in the evening. [facility] clonazePAM 1 mg tablet 09-28 00:00: 00 12-20 00:00 :00 No [id number] Take 1 tablet by mouth twice daily as needed for anxiety. [facility] lithium carbonate CR 450 mg SR tablet 09-13 00:00: 00 11-28 00:00 :00 No [id number] 900mg Take 2 tablets by mouth at bedtime. [facility] busPIRone 10 mg tablet 09-13 00:00: 00 10-04 00:00 :00 No [id number] 10mg Take 1 tablet by mouth in the morning and 1 tablet in the evening. [facility] clonazePAM 1 mg tablet 08-30 00:00: 00 09-25 00:00 :00 No [id number] Take 1 tablet by mouth twice daily as needed for anxiety. [facility] TAKE 2 TABLETS ONCE A DAY BY MOUTH 08-24 00:00: 00 06-12 00:00 :00 No 200 [facility] FUROSEMIDE ORAL 07-26 09:33: 26 07-26 00:00 :00 No 40mg Take 40 mg by mouth daily. [facility] traZODone 50 mg tablet 07-26 00:00: 00 11-28 00:00 :00 No [id number] 50mg Take 1 tablet by mouth at bedtime. May cut tablet in half. [facility] lithium carbonate CR 450 mg SR tablet 07-26 00:00: 00 09-13 00:00 :00 No [id number] 900mg Take 2 tablets by mouth at bedtime. [facility] busPIRone 10 mg tablet 14 00:00: 00 09-13 00:00 :00 No [id number] 10mg Take 1 tablet by mouth in the morning and 1 tablet in the evening. [facility] INHALE 2 PUFFS EVERY 4-6 HOURS NEEDED. 07-22 00:00: 00 06-12 00:00 :00 No [id number] [facility] clonazePAM 1 mg tablet 24 00:00: 00 08-29 00:00 :00 No [id number] Take 1 tablet by mouth twice daily as needed for anxiety. [facility] TAKE 1 CAPSULE 3 TIMES DAILY WITH MEALS. 16 00:00: 00 06-12 00:00 :00 No 120 [facility] lithium carbonate CR 450 mg SR tablet 06-20 00:00: 00 07-26 00:00 :00 No [id number] 900mg Take 2 tablets by mouth at bedtime. [facility] TAKE 1 TABLET TWICE DAILY. 04 00:00: 00 06-12 00:00 :00 No 75 [facility] TAKE 1 TABLET BY MOUTH DAILY 05-23 00:00: 00 06-12 00:00 :00 No 200 [facility] TAKE 1 CAPSULE 3 TIMES DAILY WITH MEALS. - 00:00: 00 06-12 00:00 :00 No 120 [facility] TAKE 1 TABLET EVERY 4 HOURS NEEDED. -11 00:00: 00 06-12 00:00 :00 No 10 [facility] traZODone 50 mg tablet -09 00:00: 00 07-26 00:00 :00 No [id number] 50mg Take 1 tablet by mouth at bedtime. May cut tablet in half. [facility] clonazePAM 1 mg tablet -09 00:00: 00 07-05 00:00 :00 No [id number] Take 1 tablet by mouth twice daily as needed for anxiety. [facility] lithium carbonate CR 450 mg SR tablet 0 3-09 00:00: 00 06-17 00:00 :00 No [id number] 900mg Take 2 tablets by mouth at bedtime. [facility] traZODone 50 mg tablet 0 1-04 00:00: 00 04-20 00:00 :00 No [id number] 50mg Take 1 tablet by mouth at bedtime. May cut tablet in half. [facility] lithium carbonate CR 450 mg SR tablet 1-04 00:00: 00 04-20 00:00 :00 No [id number] 900mg Take 2 tablets by mouth at bedtime. [facility] clonazePAM 1 mg tablet 1-04 00:00: 00 04-19 00:00 :00 No [id number] Take 1 tablet by mouth twice daily as needed for anxiety. [facility] lithium 600 mg capsule 1-04 00:00: 00 02-15 00:00 :00 No [id number] 600mg Take 1 capsule by mouth in the morning and 1 capsule in the evening. [facility] traZODone 50 mg tablet 2021-02 00:00: 00 02-15 00:00 :00 No [id number] 50mg Take 1 tablet by mouth at bedtime. May cut tablet in half. [facility] clonazePAM 1 mg tablet 2021-02 1 00:00: 00 02-15 00:00 :00 No [id number] Take 1 tablet by mouth twice daily as needed for anxiety. [facility] traZODone 50 mg tablet 2021-02 1- 00:00: 00 01-11 00:00 :00 No [id number] 50mg Take 1 tablet by mouth at bedtime. May cut tablet in half. [facility] lithium 600 mg capsule 2021-02 0-20 00:00: 00 02-15 00:00 :00 No [id number] 600mg Take 1 capsule by mouth in the morning and 1 capsule in the evening. [facility] lamoTRIgine 25 mg tablet 2021-1 0-20 00:00: 00 01-11 00:00 :00 No [id number] 50mg Take 2 tablets by mouth in the morning and 2 tablets in the evening. [facility] clonazePAM 1 mg tablet 2021-1 0-20 00:00: 00 01-09 00:00 :00 No [id number] Take 1 tablet by mouth twice daily as needed for anxiety. [facility] [facility] l[facility]ine 25 mg tablet 2021-0 8-26 00:00: 00 11-30 00:00 :00 No [id number] 50mg Take 2 tablets by mouth in the morning and 2 tablets in the evening. [facility] clonazePAM 1 mg tablet 2021-0 8-25 00:00: 00 11-30 00:00 :00 No [id number] Take no more than 1 mg twice daily as needed for anxiety [facility] lithium 600 mg capsule 2021-0 8-25 00:00: 00 11-30 00:00 :00 No [id number] 600mg Take 1 capsule by mouth in the morning and 1 capsule in the evening. [facility] Lamotrigine 50 mg tablet 2021-0 8-25 00:00: 00 10-07 00:00 :00 No [id number] 50mg Take 1 tablet by mouth in the morning and 1 tablet in the evening. [facility] Lamotrigine 50 mg tablet 2021-0 8-11 00:00: 00 10-06 00:00 :00 No [id number] 50mg Take 1 tablet by mouth in the morning and 1 tablet in the evening. [facility] Lamotrigine 50 mg tablet 2021-0 7-18 00:00: 00 09-22 00:00 :00 No [id number] 50mg Take 1 tablet by mouth in the morning and 1 tablet in the evening. [facility] lithium 600 mg capsule 2-0 7-13 00:00: 00 10-06 00:00 :00 No [id number] 600mg Take 1 capsule by mouth in the morning and 1 capsule in the evening. [facility] traZODone 50 mg tablet 08-09 00:00: 00 01-02 00:00 :00 No [id number] 50mg Take 1 tablet by mouth at bedtime. May cut tablet in half. [facility] clonazePAM 1 mg tablet 08-09 00:00: 00 10-06 00:00 :00 No [id number] Take no more than 1 mg twice daily as needed for anxiety [facility] CYANOCOBALA M INJ 1000MCG Milliliters 06-04 00:00: 00 Yes Robert Cail traZODone 50 mg tablet 05-26 00:00: 00 08-09 00:00 :00 No [id number] 50mg Take 1 tablet by mouth at bedtime. May cut tablet in half. [facility] vitamin B-12 1,000 mcg tablet 05-23 00:00: 00 11-03 00:00 :00 No [id number] 1000ug Take 1 tablet by mouth daily. [facility] cyanocobala min 1,000 mcg/mL injection 05-23 00:00: 00 11-03 00:00 :00 No [id number] 1000ug 1 mL by Intramuscu lar route weekly. [facility] losartan potassium (LOSARTAN ORAL) 05-17 09:24: 36 Yes 20mg Take 20 mg by mouth. [facility] FUROSEMIDE ORAL 05-17 09:24: 36 Yes 40mg Take 40 mg by mouth daily. [facility] magnesium gluconate 200 mg tablet 05-17 00:00: 00 Yes [id number] 400mg Take 2 tablets by mouth 2 (two) times daily. [facility] gabapentin 300 mg capsule 05-17 00:00: 00 11-03 00:00 :00 No [id number] 300mg Take 1 capsule by mouth 3 (three) times daily. [facility] rizatriptan 5 mg disintegrat ing tablet 2022-0 4-05 00:00: 00 11-03 00:00 :00 No [id number] 5mg Take 1 tablet by mouth as needed for Migraine (Take 5mg at the beginning of the headache can repeat 2h after if headaches persists). May repeat in 2 hours if needed [facility] magnesium gluconate 200 mg tablet 405 00:00: 00 11-03 00:00 :00 No [id number] 400mg Take 2 tablets by mouth 2 (two) times daily. [facility] artificial tears,hypro mellose, 0.5 % ophthalmic drops 405 00:00: 00 06-22 00:00 :00 No [id number] 1[drp] Place 1 Drop in left eye as needed for Dry eyes. [facility] Dose Unknown 2-0 4-04 00:00: 00 Yes [...] 00 Yes Robert F Viraj Dose Unknown 4-04 00:00: 00 Yes Robert F Viraj Dose Unknown 4-04 00:00: 00 Yes Robert Cali clonazePAM 1 mg tablet 3-31 00:00: 00 08-09 00:00 :00 No [id number] Take no more than 1 mg twice daily as needed for anxiety [facility] lithium 600 mg capsule 3-30 00:00: 00 06-12 00:00 :00 No [id number] 600mg Take 1 capsule by mouth 2 (two) times daily. [facility] ondansetron (ZOFRAN ODT) 4 mg disintegrat ing tablet 09-02 00:00: 00 11-03 00:00 :00 No [id number] 4mg Take 1 tablet by mouth every 8 (eight) hours as needed for Nausea and Vomiting (N/V). [facility] butalbital- acetaminoph en-caff 50-325-40 mg tablet 09-02 00:00: 00 06-22 00:00 :00 No [id number] 1{tbl} Take 1 tablet by mouth every 6 (six) hours as needed for Pain (scale 7-10). [facility] Dose Unknown 07-14 00:00: 00 Yes Robert F Viraj Dose Unknown 6- 00:00: 00 Yes Robert F Viraj Dose Unknown 07-14 00:00: 00 Yes Robert F Viraj Dose [...] Dose Unknown 06-30 00:00: 00 Yes Robert Cali Dose Unknown 06-30 00:00: 00 Yes Robert Cali Dose Unknown 06-30 00:00: 00 Yes Robert Cali Dose Unknown 06-30 00:00: 00 Yes Robert Cali Dose Unknown 06-30 00:00: 00 Yes Robert Cali Dose Unknown 06-30 00:00: 00 Yes Robert Cali Dose Unknown 06-09 00:00: 00 Yes Robert Cali Dose Unknown 06-09 00:00: 00 Yes Robert Cali Dose Unknown 06-09 00:00: 00 Yes Robert Cali allopurinoL 100 mg tablet 08-05 13:17: 52 Yes 100mg Take 1 tablet by mouth in the morning. [facility] atorvastati n 10 mg tablet 08-05 13:17: 52 Yes 10mg Take 10 mg by mouth at bedtime. [facility] propranolol 80 mg tablet 08-05 13:12: 38 Yes 80mg Take 1 tablet by mouth in the morning and 1 tablet in the evening. [facility] rosuvastati n 10 mg tablet Take 1 tablet every day by oral route. rosuvastati n 10 mg tablet Take 1 tablet every day by oral route. No 1 Q1D rosuvastat in 10 mg tablet Take 1 tablet every day by oral route. [facility] Ubrelvy 100 mg tablet Take by oral route. Ubrelvy 100 mg tablet Take by oral route. No Ubrelvy 100 mg tablet Take by oral route. [facility] Valium 10 mg tablet Take 1 tablet as needed by oral route as directed for 2 days. Valium 10 mg tablet Take 1 tablet as needed by oral route as directed for 2 days. No 1 Valium 10 mg tablet Take 1 tablet as needed by oral route as directed for 2 days. [facility] clonazePAM clonazePAM No clonazePAM amLODIPine Besylate 5 MG amLODIPine Besylate 5 MG No amLODIPine Besylate 5 MG levETIRAcet am 500 MG levETIRAcet am 500 MG No 1{table t} BID levETIRAce obrien 500 MG DULoxetine HCl 60 MG DULoxetine HCl 60 MG No DULoxetine HCl 60 MG acetaZOLAMI DE 250 MG acetaZOLAMI DE 250 MG No 1{table t_as_ne eded} BID acetaZOLAM CHELO 250 MG lamoTRIgine 100 MG lamoTRIgine 100 MG No lamoTRIgin e 100 MG acetaminoph en 300 mg-codeine 30 mg tablet Take 1 tablet every 6 hours by oral route for 2 days. Take 1 tablet 1 hour prior to procedure and then every 6 hours after as needed acetaminoph en 300 mg-codeine 30 mg tablet Take 1 tablet every 6 hours by oral route for 2 days. Take 1 tablet 1 hour prior to procedure and then every 6 hours after as needed No 1 Q6H acetaminop hen 300 mg-codeine 30 mg tablet Take 1 tablet every 6 hours by oral route for 2 days. Take 1 tablet 1 hour prior to procedure and then every 6 hours after as needed [facility] alprazolam 0.5 mg tablet Take 1 tablet 3 times a day by oral route. alprazolam 0.5 mg tablet Take 1 tablet 3 times a day by oral route. No 1 TID alprazolam 0.5 mg tablet Take 1 tablet 3 times a day by oral route. [facility] amlodipine 10 mg tablet Take 1 tablet every day by oral route. amlodipine 10 mg tablet Take 1 tablet every day by oral route. No 1 Q1D amlodipine 10 mg tablet Take 1 tablet every day by oral route. [facility] buspirone 30 mg tablet Take 1 tablet twice a day by oral route. buspirone 30 mg tablet Take 1 tablet twice a day by oral route. No 1 BID buspirone 30 mg tablet Take 1 tablet twice a day by oral route. [facility] Celebrex 200 mg capsule Take 1 capsule every day by oral route as directed for 1 day. Celebrex 200 mg capsule Take 1 capsule every day by oral route as directed for 1 day. No 1capsul e(s) Q1D Celebrex 200 mg capsule Take 1 capsule every day by oral route as directed for 1 day. [facility] duloxetine 60 mg capsule,del ayed release Take 1 capsule every day by oral route. duloxetine 60 mg capsule,del ayed release Take 1 capsule every day by oral route. No 1capsul e(s) Q1D duloxetine 60 mg capsule,de layed release Take 1 capsule every day by oral route. [facility] lamotrigine 100 mg tablet Take 1 tablet every day by oral route. lamotrigine 100 mg tablet Take 1 tablet every day by oral route. No 1 Q1D lamotrigin e 100 mg tablet Take 1 tablet every day by oral route. [facility] lithium carbonate ER 450 mg tablet,exte nded release Take 1 tablet twice a day by oral route. lithium carbonate ER 450 mg tablet,exte nded release Take 1 tablet twice a day by oral route. No 1 BID lithium carbonate ER 450 mg tablet,ext ended release Take 1 tablet twice a day by oral route. [facility] losartan 100 mg tablet Take 1 tablet every day by oral route. losartan 100 mg tablet Take 1 tablet every day by oral route. No 1 Q1D losartan 100 mg tablet Take 1 tablet every day by oral route. [facility] Macrobid 100 mg capsule Take 1 capsule twice a day by oral route for 7 days. Macrobid 100 mg capsule Take 1 capsule twice a day by oral route for 7 days. No 1capsul e(s) BID Macrobid 100 mg capsule Take 1 capsule twice a day by oral route for 7 days. [facility] omeprazole 40 mg capsule,del ayed release Take 1 capsule every day by oral route. omeprazole 40 mg capsule,del ayed release Take 1 capsule every day by oral route. No 1capsul e(s) Q1D omeprazole 40 mg capsule,de layed release Take 1 capsule every day by oral route. [facility] propranolol propranolol No pr opranolo l [facility] Immunizations Ordered Immunization Name Filled Immunization Name Date Status Comments Source Influenza, injectable, MDCK, quadrivalent, preservative Influenza, injectable, MDCK, quadrivalent, preservative 2022-10-27 00:00:00 Completed [facility] Cali Influenza Virus Vaccine Quad .5 mL IM 6+ MO (FLUZONE/FLULAVAL/F LUARIX) 2020-11-13 00:00:00 Completed [facility] Influenza Virus Vaccine Quad .5 mL IM 6+ MO (FLUZONE/FLULAVAL/F LUARIX) 2020-11-13 00:00:00 Completed influenza, injectable influenza, injectable 2020-11-13 00:00:00 Completed Robert Cali TDAP 2020-09-11 00:00:00 Completed [facility] TDAP 2020-09-11 00:00:00 Completed [facility] Tdap Tdap 2020-09-11 00:00:00 Completed Robert Cali SARS-COV-2 COVID-19 VACCINE - (MODERNA) 2020-04-24 00:00:00 Completed [facility] SARS-COV-2 COVID-19 VACCINE - (MODERNA) 2020-04-24 00:00:00 Completed Moderna COVID-19 Vaccine Moderna COVID-19 Vaccine 2020-04-24 00:00:00 Completed Robert Cali SARS-COV-2 COVID-19 VACCINE - (MODERNA) 2020-03-19 00:00:00 Completed [facility] SARS-COV-2 COVID-19 VACCINE - (MODERNA) 2020-03-19 00:00:00 Completed Moderna COVID-19 Vaccine Moderna COVID-19 Vaccine 2020-03-19 00:00:00 Completed Robert Cali TDAP Unknown Completed [facility] Influenza Virus Vaccine Quad .5 mL IM 6+ MO (FLUZONE/FLULAVAL/F LUARIX) Unknown Completed [facility] SARS-COV-2 COVID-19 VACCINE - (MODERNA) Unknown Completed [facility] TDAP Unknown Completed [facility] Influenza Virus Vaccine Quad .5 mL IM 6+ MO (FLUZONE/FLULAVAL/F LUARIX) Unknown Completed [facility] SARS-COV-2 COVID-19 VACCINE - (MODERNA) Unknown Completed [facility] TDAP Unknown Completed [facility] Influenza Virus Vaccine Quad .5 mL IM 6+ MO (FLUZONE/FLULAVAL/F LUARIX) Unknown Completed [facility] SARS-COV-2 COVID-19 VACCINE - (MODERNA) Unknown Completed [facility] TDAP Unknown Completed [facility] Influenza Virus Vaccine Quad .5 mL IM 6+ MO (FLUZONE/FLULAVAL/F LUARIX) Unknown Completed [facility] SARS-COV-2 COVID-19 VACCINE - (MODERNA) Unknown Completed [facility] TDAP Unknown Completed [facility] Influenza Virus Vaccine Quad .5 mL IM 6+ MO (FLUZONE/FLULAVAL/F LUARIX) Unknown Completed [facility] SARS-COV-2 COVID-19 VACCINE - (MODERNA) Unknown Completed [facility] TDAP Unknown Completed [facility] Influenza Virus Vaccine Quad .5 mL IM 6+ MO (FLUZONE/FLULAVAL/F LUARIX) Unknown Completed [facility] SARS-COV-2 COVID-19 VACCINE - (MODERNA) Unknown Completed [facility] TDAP Unknown Completed [facility] Influenza Virus Vaccine Quad .5 mL IM 6+ MO (FLUZONE/FLULAVAL/F LUARIX) Unknown Completed [facility] SARS-COV-2 COVID-19 VACCINE - (MODERNA) Unknown Completed [facility] TDAP Unknown Completed [facility] Influenza Virus Vaccine Quad .5 mL IM 6+ MO (FLUZONE/FLULAVAL/F LUARIX) Unknown Completed [facility] SARS-COV-2 COVID-19 VACCINE - (MODERNA) Unknown Completed [facility] TDAP Unknown Completed [facility] Influenza Virus Vaccine Quad .5 mL IM 6+ MO (FLUZONE/FLULAVAL/F LUARIX) Unknown Completed [facility] SARS-COV-2 COVID-19 VACCINE - (MODERNA) Unknown Completed [facility] TDAP Unknown Completed [facility] Influenza Virus Vaccine Quad .5 mL IM 6+ MO (FLUZONE/FLULAVAL/F LUARIX) Unknown Completed [facility] SARS-COV-2 COVID-19 VACCINE - (MODERNA) Unknown Completed [facility] TDAP Unknown Completed [facility] Influenza Virus Vaccine Quad .5 mL IM 6+ MO (FLUZONE/FLULAVAL/F LUARIX) Unknown Completed [facility] SARS-COV-2 COVID-19 VACCINE - (MODERNA) Unknown Completed [facility] TDAP Unknown Completed [facility] Influenza Virus Vaccine Quad .5 mL IM 6+ MO (FLUZONE/FLULAVAL/F LUARIX) Unknown Completed [facility] SARS-COV-2 COVID-19 VACCINE - (MODERNA) Unknown Completed [facility] TDAP Unknown Completed [facility] Influenza Virus Vaccine Quad .5 mL IM 6+ MO (FLUZONE/FLULAVAL/F LUARIX) Unknown Completed [facility] SARS-COV-2 COVID-19 VACCINE - (MODERNA) Unknown Completed [facility] TDAP Unknown Completed [facility] Influenza Virus Vaccine Quad .5 mL IM 6+ MO (FLUZONE/FLULAVAL/F LUARIX) Unknown Completed [facility] SARS-COV-2 COVID-19 VACCINE - (MODERNA) Unknown Completed [facility] TDAP Unknown Completed [facility] Influenza Virus Vaccine Quad .5 mL IM 6+ MO (FLUZONE/FLULAVAL/F LUARIX) Unknown Completed [facility] SARS-COV-2 COVID-19 VACCINE - (MODERNA) Unknown Completed [facility] TDAP Unknown Completed [facility] Influenza Virus Vaccine Quad .5 mL IM 6+ MO (FLUZONE/FLULAVAL/F LUARIX) Unknown Completed [facility] SARS-COV-2 COVID-19 VACCINE - (MODERNA) Unknown Completed [facility] TDAP Unknown Completed [facility] Influenza Virus Vaccine Quad .5 mL IM 6+ MO (FLUZONE/FLULAVAL/F LUARIX) Unknown Completed [facility] SARS-COV-2 COVID-19 VACCINE - (MODERNA) Unknown Completed [facility] TDAP Unknown Completed [facility] Influenza Virus Vaccine Quad .5 mL IM 6+ MO (FLUZONE/FLULAVAL/F LUARIX) Unknown Completed [facility] SARS-COV-2 COVID-19 VACCINE - (MODERNA) Unknown Completed [facility] TDAP Unknown Completed [facility] Influenza Virus Vaccine Quad .5 mL IM 6+ MO (FLUZONE/FLULAVAL/F LUARIX) Unknown Completed [facility] SARS-COV-2 COVID-19 VACCINE - (MODERNA) Unknown Completed [facility] TDAP Unknown Completed [facility] Influenza Virus Vaccine Quad .5 mL IM 6+ MO (FLUZONE/FLULAVAL/F LUARIX) Unknown Completed [facility] SARS-COV-2 COVID-19 VACCINE - (MODERNA) Unknown Completed [facility] TDAP Unknown Completed [facility] Influenza Virus Vaccine Quad .5 mL IM 6+ MO (FLUZONE/FLULAVAL/F LUARIX) Unknown Completed [facility] SARS-COV-2 COVID-19 VACCINE - (MODERNA) Unknown [facility] Influenza Virus Vaccine Quad .5 mL IM 6+ MO (FLUZONE/FLULAVAL/F LUARIX) Unknown Completed [facility] TDAP Unknown Completed [facility] Influenza Virus Vaccine Quad .5 mL IM 6+ MO (FLUZONE/FLULAVAL/F LUARIX) Unknown Completed [facility] SARS-COV-2 COVID-19 VACCINE - (MODERNA) Unknown Completed [facility] TDAP Unknown Completed [facility] Influenza Virus Vaccine Quad .5 mL IM 6+ MO (FLUZONE/FLULAVAL/F LUARIX) Unknown Completed [facility] SARS-COV-2 COVID-19 VACCINE - (MODERNA) Unknown Completed [facility] SARS-COV-2 COVID-19 VACCINE - (MODERNA) Unknown Completed [facility] TDAP Unknown Completed [facility] Influenza Virus Vaccine Quad .5 mL IM 6+ MO (FLUZONE/FLULAVAL/F LUARIX) Unknown Completed [facility] SARS-COV-2 COVID-19 VACCINE - (MODERNA) Unknown Completed [facility] TDAP Unknown Completed [facility] Influenza Virus Vaccine Quad .5 mL IM 6+ MO (FLUZONE/FLULAVAL/F LUARIX) Unknown Completed [facility] SARS-COV-2 COVID-19 VACCINE - (MODERNA) Unknown Completed [facility] TDAP Unknown Completed [facility] Influenza Virus Vaccine Quad .5 mL IM 6+ MO (FLUZONE/FLULAVAL/F LUARIX) Unknown Completed [facility] SARS-COV-2 COVID-19 VACCINE - (MODERNA) Unknown Completed [facility] TDAP Unknown Completed [facility] Influenza Virus Vaccine Quad .5 mL IM 6+ MO (FLUZONE/FLULAVAL/F LUARIX) Unknown Completed [facility] SARS-COV-2 COVID-19 VACCINE - (MODERNA) Unknown Completed [facility] TDAP Unknown Completed [facility] Influenza Virus Vaccine Quad .5 mL IM 6+ MO (FLUZONE/FLULAVAL/F LUARIX) Unknown Completed [facility] SARS-COV-2 COVID-19 VACCINE - (MODERNA) Unknown Completed [facility] Vital Signs Vital Name Observation Time Observation Value Comments S ource BMI (Body Mass Index) 2024-01-24 00:00:00 34.2 kg/m2 [facility] BP Diastolic 2024-01-24 00:00:00 79 mm[Hg] [facility] Height 2024-01-24 00:00:00 66 [in_i] [facility] BP Systolic 2024-01-24 00:00:00 165 mm[Hg] [facility] Body Weight 2024-01-24 00:00:00 212.2 [lb_av] [facility] Body Weight 2024-01-23 00:00:00 212.2 [lb_av] [facility] BP Systolic 2024-01-23 00:00:00 174 mm[Hg] [facility] BP Diastolic 2024-01-23 00:00:00 95 mm[Hg] [facility] BMI (Body Mass Index) 2024-01-23 00:00:00 34.2 kg/m2 [facility] Height 2024-01-23 00:00:00 66 [in_i] [facility] height 2023-11-27 15:30:00 66 [in_i] [facility] weight-kg 2023-11-27 15:30:00 97.52 kg [facility] bmi 2023-11-27 15:30:00 34.7 kg/m2 [facility] temperature 2023-11-27 15:30:00 97.6 [degF] [facility] respiratory rate 2023-11-27 15:30:00 16 /min [facility] heart rate 2023-11-27 15:30:00 85 /min [facility] blood pressure systolic 2023-11-27 15:30:00 164 mm[Hg] [facility] blood pressure diastolic 2023-11-27 15:30:00 87 mm[Hg] [facility] Systolic blood pressure 2023-07-26 14:17:00 177 mm[Hg] [facility] Diastolic blood pressure 2023-07-26 14:17:00 92 mm[Hg] [facility] Heart rate 2023-07-26 14:17:00 97 /min [facility] Body temperature 2023-07-26 14:17:00 36.39 Veran [facility] Respiratory rate 2023-07-26 14:17:00 18 /min [facility] Body height 2023-07-26 14:17:00 167.6 cm [facility] Body weight 2023-07-26 14:17:00 100.472 kg [facility] BMI 2023-07-26 14:17:00 35.75 kg/m2 [facility] Oxygen saturation in Arterial blood by Pulse oximetry 2023-07-26 14:17:00 97 /min [facility] Systolic blood pressure 2023-06-08 07:00:00 112 mm[Hg] [facility] Diastolic blood pressure 2023-06-08 07:00:00 62 mm[Hg] [facility] Heart rate 2023-06-08 07:00:00 72 /min [facility] Respiratory rate 2023-06-08 07:00:00 20 /min [facility] Oxygen saturation in Arterial blood by Pulse oximetry 2023-06-08 07:00:00 97 /min [facility] Body weight 2023-06-08 02:41:00 108.863 kg [facility] BMI 2023-06-08 02:41:00 38.74 kg/m2 [facility] Body temperature 2023-06-08 02:38:00 36.67 Verna [facility] Body height 2023-06-08 02:34:00 167.6 cm [facility] Systolic blood pressure 2023-02-15 15:53:00 132 mm[Hg] [facility] Diastolic blood pressure 2023-02-15 15:53:00 73 mm[Hg] [facility] Heart rate 2023-02-15 15:53:00 74 /min [facility] Body temperature 2023-02-15 15:53:00 36.44 Verna [facility] Respiratory rate 2023-02-15 15:53:00 16 /min [facility] Body height 2023-02-15 15:53:00 167.6 cm [facility] Body weight 2023-02-15 15:53:00 100.336 kg [facility] BMI 2023-02-15 15:53:00 35.70 kg/m2 [facility] Oxygen saturation in Arterial blood by Pulse oximetry 2023-02-15 15:53:00 100 /min [facility] Systolic blood pressure 2022-11-13 14:08:00 117 mm[Hg] [facility] Diastolic blood pressure 2022-11-13 14:08:00 70 mm[Hg] [facility] Heart rate 2022-11-13 14:08:00 64 /min [facility] Respiratory rate 2022-11-13 14:08:00 12 /min [facility] Oxygen saturation in Arterial blood by Pulse oximetry 2022-11-13 14:08:00 99 /min [facility] Body temperature 2022-11-13 13:38:00 36.39 Verna [facility] Body height 2022-11-13 12:15:00 167.6 cm [facility] Body weight 2022-11-13 12:15:00 95.21 kg [facility] BMI 2022-11-13 12:15:00 33.88 kg/m2 [facility] Systolic blood pressure 2022-11-13 12:15:00 142 mm[Hg] [facility] Diastolic blood pressure 2022-11-13 12:15:00 66 mm[Hg] [facility] Heart rate 2022-11-13 12:15:00 77 /min [facility] Body temperature 2022-11-13 12:15:00 36 Verna [facility] Respiratory rate 2022-11-13 12:15:00 21 /min [facility] Body height 2022-11-13 12:15:00 167.6 cm [facility] Body weight 2022-11-13 12:15:00 95.21 kg [facility] BMI 2022-11-13 12:15:00 33.88 kg/m2 [facility] Oxygen saturation in Arterial blood by Pulse oximetry 2022-11-13 12:15:00 95 /min [facility] Systolic blood pressure 2022-11-03 15:35:00 154 mm[Hg] [facility] Diastolic blood pressure 2022-11-03 15:35:00 86 mm[Hg] [facility] Heart rate 2022-11-03 15:35:00 86 /min [facility] Body temperature 2022-11-03 15:35:00 37 Verna [facility] Respiratory rate 2022-11-03 15:35:00 18 /min [facility] Body height 2022-11-03 15:35:00 167.6 cm [facility] Body weight 2022-11-03 15:35:00 97.523 kg [facility] BMI 2022-11-03 15:35:00 34.70 kg/m2 [facility] Oxygen saturation in Arterial blood by Pulse oximetry 2022-11-03 15:35:00 99 /min [facility] Systolic blood pressure 2022-10-19 12:35:00 159 mm[Hg] Provider Notified [facility] Diastolic blood pressure 2022-10-19 12:35:00 85 mm[Hg] Provider Notified [facility] Heart rate 2022-10-19 12:35:00 94 /min [facility] Body temperature 2022-10-19 12:33:00 36.78 Verna [facility] Respiratory rate 2022-10-19 12:33:00 16 /min [facility] Body height 2022-10-19 12:33:00 167.6 cm [facility] Body weight 2022-10-19 12:33:00 96.616 kg [facility] BMI 2022-10-19 12:33:00 34.38 kg/m2 [facility] Oxygen saturation in Arterial blood by Pulse oximetry 2022-10-19 12:33:00 98 /min [facility] BP Systolic 2024-01-30 13:49:00 169 mm[Hg] Robert Cali BP Diastolic 2024-01-30 13:49:00 85 mm[Hg] Robert F Viraj Weight Measured 2024-01-30 13:49:00 214.80 pounds Robert F Viraj Height Measured 2024-01-30 13:49:00 66.00 inches Robert F Viraj Body Temperature 2024-01-30 13:49:00 98.70 degrees Robert F Viraj Heart Rate 2024-01-30 13:49:00 87.00 /min Robert F Viraj Respiratory Rate 2024-01-30 13:49:00 18.00 /min Robert F Viraj BP Systolic 2024-01-18 13:37:00 137 mm[Hg] Robert F Viraj BP Diastolic 2024-01-18 13:37:00 80 mm[Hg] Robert F Viraj Weight Measured 2024-01-18 13:37:00 212.60 pounds Robert F Viraj Height Measured 2024-01-18 13:37:00 66.00 inches Robert F Viraj Body Temperature 2024-01-18 13:37:00 98.20 degrees Robert F Viraj Heart Rate 2024-01-18 13:37:00 57.00 /min Robert F Viraj Respiratory Rate 2024-01-18 13:37:00 18.00 /min Robert F Viraj BP Systolic 2024-01-04 16:38:00 143 mm[Hg] Robert F Viraj BP Diastolic 2024-01-04 16:38:00 93 mm[Hg] Robert F Viraj Weight Measured 2024-01-04 16:38:00 212.20 pounds Robert F Viraj Height Measured 2024-01-04 16:38:00 66.00 inches Robert F Viraj Body Temperature 2024-01-04 16:38:00 97.41 degrees Robert F Viraj Heart Rate 2024-01-04 16:38:00 105.00 /min Robert F Viraj Respiratory Rate 2024-01-04 16:38:00 17.00 /min Robert F Viraj BP Systolic 2023-12-11 16:36:00 130 mm[Hg] Robert F Viraj BP Diastolic 2023-12-11 16:36:00 74 mm[Hg] Robert F Viraj Weight Measured 2023-12-11 16:36:00 218.00 pounds Robert F Viraj Height Measured 2023-12-11 16:36:00 66.00 inches Robert [...] blood pressure 2023-09-03 14:41:00 131 mm[Hg] [facility] Diastolic blood pressure 2023-09-03 14:41:00 73 mm[Hg] [facility] Heart rate 2023-09-03 14:41:00 93 /min [facility] Respiratory rate 2023-09-03 14:38:00 20 /min [facility] Body height 2023-09-03 14:38:00 167.6 cm [facility] Body weight 2023-09-03 14:38:00 100.2 kg [facility] BMI 2023-09-03 14:38:00 35.65 kg/m2 [facility] Systolic blood pressure 2023-07-26 14:17:00 177 mm[Hg] [facility] Diastolic blood pressure 2023-07-26 14:17:00 92 mm[Hg] [facility] Heart rate 2023-07-26 14:17:00 97 /min [facility] Body temperature 2023-07-26 14:17:00 36.39 Verna [facility] Respiratory rate 2023-07-26 14:17:00 18 /min [facility] Body height 2023-07-26 14:17:00 167.6 cm [facility] Body weight 2023-07-26 14:17:00 100.472 kg [facility] BMI 2023-07-26 14:17:00 35.75 kg/m2 [facility] Oxygen saturation in Arterial blood by Pulse oximetry 2023-07-26 14:17:00 97 /min [facility] Systolic blood pressure 2023-06-08 07:00:00 112 mm[Hg] [facility] Diastolic blood pressure 2023-06-08 07:00:00 62 mm[Hg] [facility] Heart rate 2023-06-08 07:00:00 72 /min [facility] Respiratory rate 2023-06-08 07:00:00 20 /min [facility] Oxygen saturation in Arterial blood by Pulse oximetry 2023-06-08 07:00:00 97 /min [facility] Body weight 2023-06-08 02:41:00 108.863 kg [facility] BMI 2023-06-08 02:41:00 38.74 kg/m2 [facility] Body temperature 2023-06-08 02:38:00 36.67 Verna [facility] Body height 2023-06-08 02:34:00 167.6 cm [facility] BP Systolic 2023-05-22 08:18:00 134 mm[Hg] Robert [...] blood pressure 2023-02-15 15:53:00 132 mm[Hg] [facility] Diastolic blood pressure 2023-02-15 15:53:00 73 mm[Hg] [facility] Heart rate 2023-02-15 15:53:00 74 /min [facility] Body temperature 2023-02-15 15:53:00 36.44 Verna [facility] Respiratory rate 2023-02-15 15:53:00 16 /min [facility] Body height 2023-02-15 15:53:00 167.6 cm [facility] Body weight 2023-02-15 15:53:00 100.336 kg [facility] BMI 2023-02-15 15:53:00 35.70 kg/m2 [facility] Oxygen saturation in Arterial blood by Pulse oximetry 2023-02-15 15:53:00 100 /min [facility] Systolic blood pressure 2023-01-22 15:03:00 144 mm[Hg] [facility] Diastolic blood pressure 2023-01-22 15:03:00 83 mm[Hg] [facility] Heart rate 2023-01-22 15:03:00 97 /min [facility] Respiratory rate 2023-01-22 15:00:00 18 /min [facility] Body height 2023-01-22 15:00:00 167.6 cm [facility] Body weight 2023-01-22 15:00:00 95.2 kg [facility] BMI 2023-01-22 15:00:00 33.88 kg/m2 [facility] BP Systolic 2022-12-20 09:52:00 109 mm[Hg] Robert Cali BP Diastolic 2022-12-20 09:52:00 59 mm[Hg] Robert Cali Weight Measured 2022-12-20 09:52:00 217.00 pounds Robert Cali Height Measured 2022-12-20 09:52:00 66.00 inches Robert Cali Body Temperature 2022-12-20 09:52:00 98.40 degrees Robert Cali Heart Rate 2022-12-20 09:52:00 66.00 /min Robert Cali Respiratory Rate 2022-12-20 09:52:00 Robert Cali Systolic blood pressure 2022-11-13 14:08:00 117 mm[Hg] [facility] Diastolic blood pressure 2022-11-13 14:08:00 70 mm[Hg] [facility] Heart rate 2022-11-13 14:08:00 64 /min [facility] Respiratory rate 2022-11-13 14:08:00 12 /min [facility] Oxygen saturation in Arterial blood by Pulse oximetry 2022-11-13 14:08:00 99 /min [facility] Body temperature 2022-11-13 13:38:00 36.39 Verna [facility] Body height 2022-11-13 12:15:00 167.6 cm [facility] Body weight 2022-11-13 12:15:00 95.21 kg [facility] BMI 2022-11-13 12:15:00 33.88 kg/m2 [facility] Systolic blood pressure 2022-11-03 15:35:00 154 mm[Hg] [facility] Diastolic blood pressure 2022-11-03 15:35:00 86 mm[Hg] [facility] Heart rate 2022-11-03 15:35:00 86 /min [facility] Body temperature 2022-11-03 15:35:00 37 Verna [facility] Respiratory rate 2022-11-03 15:35:00 18 /min [facility] Body height 2022-11-03 15:35:00 167.6 cm [facility] Body weight 2022-11-03 15:35:00 97.523 kg [facility] BMI 2022-11-03 15:35:00 34.70 kg/m2 [facility] Oxygen saturation in Arterial blood by Pulse oximetry 2022-11-03 15:35:00 99 /min [facility] BP Systolic 2022-10-12 10:06:00 140 mm[Hg] Robert Cali BP Diastolic 2022-10-12 10:06:00 78 mm[Hg] Robert Cali Weight Measured 2022-10-12 10:06:00 212.20 pounds Robert Cali Height Measured 2022-10-12 10:06:00 66.00 inches Robert Cali Body Temperature 2022-10-12 10:06:00 97.40 degrees Robert Cali Heart Rate 2022-10-12 10:06:00 93.00 /min Robert Cali Respiratory Rate 2022-10-12 10:06:00 Robert Cali Systolic blood pressure 2022-10-04 14:26:00 149 mm[Hg] [facility] Diastolic blood pressure 2022-10-04 14:26:00 76 mm[Hg] [facility] Heart rate 2022-10-04 14:26:00 78 /min [facility] Respiratory rate 2022-10-04 14:21:00 18 /min [facility] Body height 2022-10-04 14:21:00 167.6 cm [facility] Body weight 2022-10-04 14:21:00 96.843 kg [facility] BMI 2022-10-04 14:21:00 34.46 kg/m2 [facility] Systolic blood pressure 2022-07-26 13:22:00 135 mm[Hg] [facility] Diastolic blood pressure 2022-07-26 13:22:00 78 mm[Hg] [facility] Heart rate 2022-07-26 13:22:00 85 /min [facility] Respiratory rate 2022-07-26 13:22:00 18 /min [facility] Body height 2022-07-26 13:22:00 167.6 cm [facility] Body weight 2022-07-26 13:22:00 97.523 kg [facility] BMI 2022-07-26 13:22:00 34.70 kg/m2 [facility] BP Systolic 2022-06-27 13:54:00 132 mm[Hg] Robert F Viraj BP Diastolic 2022-06-27 13:54:00 77 mm[Hg] Robert F Viraj Weight Measured 2022-06-27 13:54:00 217.80 pounds Robert F Viraj Height Measured 2022-06-27 13:54:00 66.00 inches Robert F Viraj Body Temperature 2022-06-27 13:54:00 97.80 degrees Robert F Viraj Heart Rate 2022-06-27 13:54:00 90.00 /min Robert F Viraj Respiratory Rate 2022-06-27 13:54:00 Robert F iVraj BP Systolic 2022-06-21 08:56:00 135 mm[Hg] Robert [...] blood pressure 2022-02-15 14:59:00 131 mm[Hg] [facility] Diastolic blood pressure 2022-02-15 14:59:00 70 mm[Hg] [facility] Heart rate 2022-02-15 14:59:00 81 /min [facility] Respiratory rate 2022-02-15 14:59:00 18 /min [facility] Body height 2022-02-15 14:59:00 167.6 cm [facility] Body weight 2022-02-15 14:59:00 102.967 kg [facility] BMI 2022-02-15 14:59:00 36.64 kg/m2 [facility] Respiratory rate 2022-01-11 17:11:00 18 /min [facility] Body height 2022-01-11 17:11:00 167.6 cm [facility] Body weight 2022-01-11 17:11:00 100.699 kg [facility] BMI 2022-01-11 17:11:00 35.83 kg/m2 [facility] Systolic blood pressure 2021-08-24 14:24:00 133 mm[Hg] [facility] Diastolic blood pressure 2021-08-24 14:24:00 73 mm[Hg] [facility] Heart rate 2021-08-24 14:24:00 69 /min [facility] Respiratory rate 2021-08-24 14:24:00 18 /min [facility] Body height 2021-08-24 14:24:00 167.6 cm [facility] Body weight 2021-08-24 14:24:00 100.245 kg [facility] BMI 2021-08-24 14:24:00 35.67 kg/m2 [facility] Oxygen saturation in Arterial blood by Pulse oximetry 2021-06-07 15:30:00 96 /min [facility] Body temperature 2021-06-07 14:20:30 37.44 Verna [facility] BP Systolic 2020-07-14 23:18:00 Robert Cali BP Diastolic 2020-07-14 23:18:00 Robert Cali Weight Measured 2020-07-14 23:18:00 Robert Cali Height Measured 2020-07-14 23:18:00 Robert Cali Body Temperature 2020-07-14 23:18:00 Robert Cali Heart Rate 2020-07-14 23:18:00 Robert Cali Respiratory Rate 2020-07-14 23:18:00 Robert Cali Procedures Procedure Date / Time Performed Performing Clinician Source MAMMO, screening, digital, bilateral 2024-01-23 00:00:00 [facility] URINALYSIS 2023-06-08 03:45:00 Rhiannon Vizcarra [facility] URINE DRUG (IMMUNOASSAY) - COMPREHENSIVE DRUG SCREEN W/O REFLEX 2023-06-08 03:45:00 Marysol Pabon [facility] URINALYSIS 2023-06-08 03:45:00 Rhiannon Vizcarra [facility] URINE DRUG (IMMUNOASSAY) - COMPREHENSIVE DRUG SCREEN W/O REFLEX 2023-06-08 03:45:00 Marysol Pabon [facility] CT STROKE ANGIOGRAM HEAD 2023-06-08 02:56:58 Rhiannon Vizcarra [facility] CT STROKE ANGIOGRAM NECK 2023-06-08 02:56:58 Rhiannon Vizcarra [facility] HB ECG ROUTINE & RHYTHM STRIP 2023-06-08 02:53:51 Rhiannon Vizcarra [facility] CT STROKE HEAD WO CONTRAST 2023-06-08 02:48:28 Rhiannon Vizcarra [facility] TROPONIN I 2023-06-08 02:45:00 Rhiannon Vizcarra [facility] BASIC METABOLIC PANEL (NA, K , CL, CO2, GLUCOSE, BUN, CREATININE, CA) 2023-06-08 02:45:00 Rhiannon Vizcarra [facility] LITHIUM 2023-06-08 02:45:00 Marysol Pabon [facility] ETHANOL 2023-06-08 02:45:00 Marysol Pabon [facility] CBC WITHOUT DIFF 2023-06-08 02:45:00 Rhiannon Vizcarra [facility] PROTHROMBIN TIME / INR 2023-06-08 02:45:00 Rhiannon Vizcarra [facility] ACTIVATED PARTIAL THRMPLAS CIPRIANO 2023-05-15 6 02:45:00 Rhiannon Vizcarra [facility] EXTRA TUBE LAV 2023-06-08 02:45:00 Mayrsol Pabon [facility] PROTHROMBIN TIME / INR 2023-06-08 02:45:00 Rhiannon Vizcarra [facility] ACTIVATED PARTIAL THRMPLAS CIPRIANO 2023-05-15 6 02:45:00 Rhiannon Vizcarra [facility] CBC WITHOUT DIFF 2023-06-08 02:45:00 Rhiannon Vizcarra [facility] TROPONIN I 2023-06-08 02:45:00 Rhiannon Vizcarra [facility] BASIC METABOLIC PANEL (NA, K , CL, CO2, GLUCOSE, BUN, CREATININE, CA) 2023-06-08 02:45:00 Rhiannon Vizcarra [facility] ETHANOL 2023-06-08 02:45:00 Marysol Pabon [facility] LITHIUM 2023-06-08 02:45:00 Marysol Pabon [facility] EXTRA TUBE LAV 2023-06-08 02:45:00 Stan, Andrea-Junior [facility] POCT GLUCOSE(AGE >30DAYS) 2023-06-08 02:39:00 Rhiannon Vizcarra [facility] POCT GLUCOSE(AGE >30DAYS) 2023-06-08 02:39:00 Rhiannon Vizcarra [facility] IRON PANEL 2023-02-15 16:30:00 Elidia Cordero [facility] FERRITIN SERUM 2023-02-15 16:30:00 Elidia Cordero [facility] LITHIUM 2023-01-22 16:35:00 Rosalind Freed [facility] CONSENT/REFUSAL FOR DIAGNOSI S AND TREATMENT 2023-01-22 14:56:09 Doctor Unassigned, [place] [facility] CONSENT/REFUSAL FOR DIAGNOSI S AND TREATMENT 2023-01-22 14:56:09 Doctor Unassigned, [place] [facility] SURGICAL PATHOLOGY EXAM 2022-11-13 13:05:00 Bossman [facility] ESOPHAGOGASTRODUODENOSCOPY 2022-11-13 12:47:00 Bossman [facility] COLONOSCOPY 2022-11-13 12:47:00 Bossman [facility] ESOPHAGOGASTRODUODENOSCOPY 2022-11-13 12:47:00 Bossman [facility] COLONOSCOPY 2022-11-13 12:47:00 Bossman [facility] COLONOSCOPY (ENDO) 2022-11-13 12:28:53 Jewel [facility] COLONOSCOPY (ENDO) 2022-11-13 12:28:53 Jewel [facility] COLONOSCOPY (ENDO) 2022-11-13 12:28:53 [facility] E[facility] (ENDO) 2022-11-13 12:19:29 [facility] EGD (ENDO) 2022-11-13 12:19:29 [facility] EGD (ENDO) 2022-11-13 12:19:29 [facility] CONSENT/REFUSAL FOR DIAGNOSI S AND TREATMENT 2022-11-13 12:17:09 Doctor Unassigned, [place] [facility] CONSENT/REFUSAL FOR DIAGNOSI S AND TREATMENT 2022-11-13 12:17:09 Doctor Unassigned, [place] [facility] ASSIGNMENT OF BENEFITS 2022-11-13 11:59:03 Doctor Unassigned, [place] [facility] ASSIGNMENT OF BENEFITS 2022-11-13 11:59:03 Doctor Unassigned, [place] [facility] ENDOSCOPY PROCEDURE DOCUMENTATION 2022-02 002 05:01:00 Doctor Unassigned, [place] [facility] ENDOSCOPY PROCEDURE DOCUMENTATION 2022-02 0-02 05:01:00 Doctor Unassigned, [place] [facility] COMP. METABOLIC PANEL (45580) 2022-11-03 16:24:00 Dora Newman [facility] CBC WITH DIFF 2022-11-03 16:24:00 Dora Newman [facility] POCT TEST 2022-11-03 16:24:00 Dora Newman [facility] CBC WITH DIFF 2022-11-03 16:24:00 Dora Newman [facility] POCT TEST 2022-11-03 16:24:00 Dora Newman [facility] COMP. METABOLIC PANEL ([id number]) 2022-11-03 16:24:00 Dora Newman [facility] URINALYSIS 2022-11-03 16:18:00 Dora Newman [facility] URINALYSIS 2022-11-03 16:18:00 Dora Newman [facility] RAPID STREP SCREEN FOR GROUP A 2022-10-14 2 16:14:00 Dora Newman [facility] RAPID STREP SCREEN FOR GROUP A 2022-10-14 2 16:14:00 Dora Newman [facility] THROAT CULTURE 2022-11-03 16:14:00 Dora Newman [facility] CONSENT/REFUSAL FOR DIAGNOSI S AND TREATMENT 2022-11-03 15:27:05 Doctor Unassigned, [place] [facility] CONSENT/REFUSAL FOR DIAGNOSI S AND TREATMENT 2022-11-03 15:27:05 Doctor Unassigned, [place] [facility] EMERGENCY SERVICES AGREEMENT S AND AUTHORIZATIONS 2022-11-03 05:01:00 Doctor Unassigned, [place] [facility] HELICOBACTER PYLORI ANTIGEN, FECAL BY EIA 2022-10-19 13:44:00 Elidia Cordero [facility] HELICOBACTER PYLORI ANTIGEN, FECAL BY EIA 2022-10-19 13:44:00 Elidia Cordero [facility] FERRITIN SERUM 2022-10-19 13:35:00 Elidia Codrero [facility] IRON PANEL 2022-10-19 13:35:00 Elidia Cordero [facility] CELIAC SCREEN 2022-10-19 13:35:00 Elidia Cordero [facility] LAB ONLY CELIAC SCREEN IGA 2022-10-19 13:35:00 Elidia Cordero [facility] IRON PANEL 2022-10-19 13:35:00 Elidia Cordero [facility] CELIAC SCREEN 2022-10-19 13:35:00 Elidia Cordero [facility] FERRITIN SERUM 2022-10-19 13:35:00 Elidia Cordero [facility] LAB ONLY CELIAC SCREEN IGA 2022-10-19 13:35:00 Elidia Cordero [facility] DISCLOSURE AND CONSENT, [facility] J[facility] AND SURGICAL PROCEDURES 2022-10-19 05:01:00 Doctor Unassigned, [place] [facility] DISCLOSURE AND CONSENT, [facility] JAVAD AND SURGICAL PROCEDURES 2022-10-19 05:01:00 Doctor Unassigned, [place] [facility] REFERRAL- REQUEST/RESPONSE 2022-10-12 05:01:00 Doctor Unassigned, [place] [facility] REFERRAL- REQUEST/RESPONSE 2022-10-12 05:01:00 Doctor Unassigned, [place] [facility] THYROID STIMULATING HORMONE 2022-10-05 15:15:00 Rosalind Freed [facility] COMP. METABOLIC PANEL ([id number]) 2022-10-05 15:15:00 Abdiaziz [facility] LIPID PANEL ([id number])(TOTAL CHOLESTEROL, TRIGLYCERIDES, HDL) 2022-10-05 15:15:00 Rosalind Freed [facility] LITHIUM 2022-10-05 15:15:00 Sara Hester [facility] CBC WITH DIFF 2022-10-05 15:15:00 Abdiaziz [facility] GLYCOSYLATED HEMOGLOBIN (A1C) 2022-10-05 15:15:00 Abdiaziz [facility] CBC WITH DIFF 2022-10-05 15:15:00 Abdiaziz [facility] COMP. METABOLIC PANEL ([id number]) 2022-10-05 15:15:00 Abdiaziz [facility] GLYCOSYLATED HEMOGLOBIN (A1C) 2022-10-05 15:15:00 Abdiaziz [facility] LIPID PANEL ([id number])(TOTAL CHOLESTEROL, TRIGLYCERIDES, HDL) 2022-10-05 15:15:00 Abdiaziz [facility] THYROID STIMULATING HORMONE 2022-10-05 15:15:00 Abdiaziz [facility] LITHIUM 2022-10-05 15:15:00 Sara Hester [facility] ASSIGNMENT OF BENEFITS 2022-10-04 14:17:30 Doctor Unassigned, [place] [facility] ASSIGNMENT OF BENEFITS 2022-10-04 14:17:30 Doctor Unassigned, [place] [facility] LITHIUM 2022-07-26 14:49:00 Angela Sage [facility] PATIENT FINANCIAL POLICY 2022-07-26 13:16:12 Doctor Unassigned, [place] [facility] PATIENT FINANCIAL POLICY 2022-07-26 13:16:12 Doctor Unassigned, [place] [facility] EXTERNAL PROVIDER RECORDS 2022-04-08 06:01:00 Doctor Unassigned, [place] [facility] EXTERNAL PROVIDER RECORDS 2022-04-08 06:01:00 Doctor Unassigned, [place] [facility] EXTERNAL PROVIDER RECORDS 2022-02-21 06:01:00 Doctor Unassigned, [place] [facility] EXTERNAL PROVIDER RECORDS 2022-02-21 06:01:00 Doctor Unassigned, [place] [facility] LITHIUM 2022-02-15 15:58:00 Angela Sage [facility] CONSENT/REFUSAL FOR DIAGNOSI S AND TREATMENT 2022-01-11 17:10:16 Doctor Unassigned, [place] [facility] CONSENT/REFUSAL FOR DIAGNOSI S AND TREATMENT 2022-01-11 17:10:16 Doctor Unassigned, [place] [facility] EXTERNAL PROVIDER RECORDS 2020-11-26 05:01:00 Doctor Unassigned, [place] [facility] Tubal Ligation 1999-02-12 00:00:00 [facility] ical Encounters Start Date/Time End Date/Time Encounter Type Admission Type Attending [facility] Facility Care Department Encounter ID Source 2023-12-14 15:51:00 Outpatient Jae Holloway [facility] [id number] [facility] 2023-11-27 15:05:01 Outpatient Jae Holloway [facility] [id number] [facility] 2020-12-13 10:09:54 Emergency [facility] [id number] [facility] 2020-12-11 04:02:45 Emergency [facility] [id number] [facility] 2024-01-30 14:39:39 2024-01-30 14:39:39 Outpatient SFA [facility] [id number] Robert Cali 2024-01-30 00:00:00 2024-01-30 00:00:00 Outpatient Visit [facility] [id number] Robert Cali 2024-01-28 13:45:00 2024-01-28 13:45:00 Outpatient R [facility] [id number] [facility] 2024-01-25 00:00:00 2024-01-25 00:00:00 Travel 1.2.840.1 [id number] .[id number] .[id number] [id number] 4.2.7.3.698 [id number] [facility] 2024-01-24 00:00:00 2024-01-24 00:00:00 Talisha Chan MD: [address], [place] [id number] , Ph. [facility] - GC_GCBZW_Gi potter Stu* [id number] [facility] 2024-01-23 00:00:00 2024-01-23 00:00:00 Talisha Chan MD: [address], [place] [id number] , Ph. [facility] - GC_GCBZW_Gi potter Stu* [id number] [facility] 2024-01-22 09:30:00 2024-01-22 09:30:00 Outpatient R [facility] [id number] [facility] 2024-01-18 00:00:00 2024-01-18 00:00:00 Outpatient Visit [facility] [id number] Robert Cali 2024-01-13 00:00:00 2024-01-13 00:00:00 Travel 1.2.840.1 [id number] .[id number] .[id number] 1.2.840.114 [id number] 4.2.7.3.698 [id number] [facility] 2024-01-04 16:41:03 2024-01-04 16:41:03 Outpatient SFA [facility] [id number] Robert Cali 2024-01-04 00:00:00 2024-01-04 00:00:00 Outpatient Visit [facility] [id number] Robert Cali 2023-12-26 08:50:25 2023-12-26 08:50:25 Outpatient S[facility] [id number] Robert Cali 2023-12-19 10:24:52 2023-12-19 10:24:52 Outpatient SFA [facility] [id number] Robert Cali 2023-12-11 16:28:54 2023-12-11 16:28:54 Outpatient SFA [facility] [id number] Robert Cali 2023-12-11 00:00:00 2023-12-11 00:00:00 Outpatient Visit [facility] [id number] Robert Cali 2023-12-05 13:46:14 2023-12-05 13:46:14 Outpatient SFA [facility] [id number] Robert Cali 2023-11-27 08:13:37 2023-11-27 08:13:37 Outpatient SFA [facility] [id number] Robert Cali 2023-11-27 00:00:00 2023-11-27 00:00:00 Outpatient Visit [facility] [id number] Robert Cali 2023-11-27 00:00:00 2023-11-27 00:00:00 Office Visit- Est Pt.- Level 4 CLS CLS [id number] [facility] 2023-11-27 00:00:00 2023-11-27 00:00:00 (TEL) CLS CLS [id number] [facility] 2023-10-09 00:00:00 2023-11-10 18:22:03 Patient Secure Msg Doctor Unassigned, [place] 1.2.840.1 [id number] 3.104.2.7 .[id number] .[id number] [facility] 2023-11-06 13:51:42 2023-11-06 13:51:42 Outpatient SFA [facility] [id number] Robert Cali 2023-10-02 00:00:00 2023-11-03 18:20:51 Patient Secure Msg Doctor Unassigned, [place] 1.2.840.1 [id number] 3.104.2.7 .[id number] .8 [id number] [facility] 2023-09-28 00:00:00 2023-10-02 12:14:38 Patient Secure Msg Tavon Dumont 1.2.840.1 50398.1.1 3.104.2.7 .3.967205 .8 [id number] [facility] 2023-09-03 09:30:00 2023-09-03 11:20:53 Outpatient ALESHA AMBRIZ [facility] [id number] [facility] 2023-09-03 00:00:00 2023-09-03 00:00:00 Travel 1.2.840.1 08919.1.1 3.104.2.7 .3.188942 .8 1.2.840.114 350.1.13.10 4.2.7.3.698 084.8 [id number] [facility] 2023-08-31 00:00:00 2023-08-31 00:00:00 Travel 1.2.840.1 23472.1.1 3.104.2.7 .3.427504 .8 1.2.840.114 350.1.13.10 4.2.7.3.698 084.8 [id number] [facility] 2023-08-27 08:00:00 2023-08-27 08:00:00 Outpatient ALESHA AMBRIZ [facility] [id number] [facility] 2023-08-24 00:00:00 2023-08-24 00:00:00 Travel 1.2.840.1 13321.1.1 3.104.2.7 .3.078199 .8 1.2.840.114 350.1.13.10 4.2.7.3.698 084.8 [id number] [facility] 2023-08-08 00:00:00 2023-08-08 12:08:14 Case Management Elidia Cordero 1.2.840.1 62558.1.1 3.104.2.7 .3.092303 .8 [id number] [facility] 2023-07-02 00:00:00 2023-08-04 18:20:55 Patient Secure Msg Dominic Keita 1.2.840.1 86873.1.1 3.104.2.7 .3.858091 .8 [id number] [facility] 2023-08-03 00:00:00 2023-08-03 08:18:24 Telephone Elidia Cordero 1.2.840.1 30950.1.1 3.104.2.7 .3.010791 .8 [id number] [facility] 2023-07-30 00:00:00 2023-07-30 15:44:55 Telephone Elidia Cordero 1.2.840.1 56755.1.1 3.104.2.7 .3.659675 .8 [id number] [facility] 2023-07-26 09:30:00 2023-07-26 10:00:00 Office Visit Jose WestbrookSharonaklarissakarl E[place] 1.2.840.1 08255.1.1 3.104.2.7 .3.409180 .8 [id number] [facility] 2023-07-26 09:30:00 2023-07-26 09:30:00 Outpatient JOSE TRAN [facility] [id number] [facility] 2023-07-26 00:00:00 2023-07-26 00:00:00 Travel 1.2.840.1 01299.1.1 3.104.2.7 .3.596908 .8 1.2.840.114 350.1.13.10 4.2.7.3.698 084.8 [id number] [facility] 2023-07-18 10:15:00 2023-07-18 10:15:00 Outpatient R FARZANA SAUCEDA [facility] [id number] [facility] 2023-07-16 00:00:00 2023-07-16 00:00:00 Travel 1.2.840.1 93996.1.1 3.104.2.7 .3.501735 .8 1.2.840.114 350.1.13.10 4.2.7.3.698 084.8 [id number] [facility] 2023-07-02 00:00:00 2023-07-02 12:41:14 Telephone Elidia Cordero 1.2.840.1 55255.1.1 3.104.2.7 .3.008792 .8 [id number] [facility] 2023-06-13 00:00:00 2023-06-13 10:19:53 Letter (Out) 1.2.840.1 61209.1.1 3.104.2.7 .3.183284 .8 [id number] [facility] 2023-06-07 21:35:00 2023-06-08 02:20:00 Emergency X MARYSOL PABON HEE[facility]ANG [facility] ERT [id number] [facility] 2023-06-07 21:35:00 2023-06-08 02:20:00 Emergency Marysol Pabon Whitney T 1.2.840.1 29467.1.1 3.104.2.7 .3.463855 .8 [id number] [facility] 2023-06-07 00:00:00 2023-06-07 00:00:00 Travel 1.2.840.1 51978.1.1 3.104.2.7 .3.436772 .8 1.2.840.114 350.1.13.10 4.2.7.3.698 084.8 [id number] [facility] 2023-05-29 00:00:00 2023-06-04 10:54:35 Patient Secure Dominic Ly 1.2.840.1 99605.1.1 3.104.2.7 .3.904576 .8 [id number] [facility] 2023-05-28 08:45:00 2023-05-28 08:45:00 Outpatient DAVIDSON MEYER [facility] [id number] [facility] 2023-05-25 00:00:00 2023-05-25 00:00:00 Travel 1.2.840.1 67907.1.1 3.104.2.7 .3.488647 .8 1.2.840.114 350.1.13.10 4.2.7.3.698 084.8 [id number] [facility] 2023-05-22 08:17:37 2023-05-22 08:17:37 Outpatient [facility] [id number] Roberteliz Cali 2023-05-11 00:00:00 2023-05-11 17:06:28 Telephone Elidia Cordero 1.2.840.1 79984.1.1 3.104.2.7 .3.642767 .8 [id number] [facility] 2023-05-09 00:00:00 2023-05-09 17:14:57 Patient Secure Dominic Ly 1.2.840.1 24055.1.1 3.104.2.7 .3.670232 .8 [id number] [facility] 2023-05-08 10:00:00 2023-05-08 10:00:00 Outpatient EMILIA WU [facility] [id number] [facility] 2023-03-28 00:00:00 2023-04-28 18:05:02 Patient Secure Msg Doctor Unassigned, [place] 1.2.840.1 24646.1.1 3.104.2.7 .3.386215 .8 [id number] [facility] 2023-04-18 08:00:00 2023-04-18 08:00:00 Outpatient R FARZANA SAUCEDA [facility] [id number] [facility] 2023-04-17 00:00:00 2023-04-17 00:00:00 Travel 1.2.840.1 11538.1.1 3.104.2.7 .3.220446 .8 1.2.840.114 350.1.13.10 4.2.7.3.698 084.8 [id number] [facility] 2023-04-11 13:00:00 2023-04-11 13:00:00 Outpatient R EMILIA SNOWDEN [facility] [id number] [facility] 2023-04-11 13:00:00 2023-04-11 13:00:00 Outpatient R EMILIA SNOWDEN [facility] [id number] [facility] 2023-04-04 08:00:00 2023-04-04 08:00:00 Outpatient R [facility] [id number] [facility] 2023-04-02 00:00:00 2023-04-02 00:00:00 Travel 1.2.840.1 26297.1.1 3.104.2.7 .3.339582 .8 1.2.840.114 350.1.13.10 4.2.7.3.698 084.8 [id number] [facility] 2023-03-09 00:00:00 2023-03-09 00:00:00 Telephone Elidia Cordero 1.2.840.1 74692.1.1 3.104.2.7 .3.085853 .8 [id number] [facility] 2023-03-08 00:00:00 2023-03-08 00:00:00 Telephone Elidia Cordero 1.2.840.1 59210.1.1 3.104.2.7 .3.436925 .8 [id number] [facility] 2023-02-28 10:15:00 2023-02-28 10:15:00 Outpatient SARA DELGADILLO KIMBERLY [facility] [id number] [facility] 2023-02-27 00:00:00 2023-02-27 00:00:00 Travel 1.2.840.1 86631.1.1 3.104.2.7 .3.608018 .8 1.2.840.114 350.1.13.10 4.2.7.3.698 084.8 [id number] [facility] 2023-02-15 10:30:00 2023-02-15 10:45:00 Copper Tapper Visit Jewel Cunha [facility] 1.2.840.1 85628.1.1 3.104.2.7 .3.110017 .8 [id number] [facility] 2023-02-15 09:30:00 2023-02-15 10:00:00 Office Visit Jewel Cunha Abdullah Azzam 1.2.840.1 32400.1.1 3.104.2.7 .3.414852 .8 [id number] [facility] 2023-02-15 09:30:00 2023-02-15 09:30:00 Outpatient JEWEL JARVIS [facility] [id number] [facility] 2023-02-15 00:00:00 2023-02-15 00:00:00 Travel 1.2.840.1 99947.1.1 3.104.2.7 .3.987593 .8 1.2.840.114 350.1.13.10 4.2.7.3.698 084.8 [id number] [facility] 2023-01-23 13:00:00 2023-01-23 13:00:00 Outpatient R JENNY ARRIAGA RIZWAN [facility] [id number] [facility] 2023-01-22 10:15:00 2023-01-22 10:30:00 Copper Tapper Visit Dexter Dias Nav[facility] 1.2.840.1 71278.1.1 3.104.2.7 .3.189399 .8 [id number] [facility] 2023-01-22 09:30:00 2023-01-22 10:07:50 Outpatient DEXTER MIRELES [facility] [id number] [facility] 2023-01-22 00:00:00 2023-01-22 00:00:00 Orders Only Doctor Unassigned, [place] 1.2.840.1 20426.1.1 3.104.2.7 .3.670017 .8 [id number] [facility] 2023-01-22 00:00:00 2023-01-22 00:00:00 Travel 1.2.840.1 78197.1.1 3.104.2.7 .3.435308 .8 1.2.840.114 350.1.13.10 4.2.7.3.698 084.8 [id number] [facility] 2023-01-15 00:00:00 2023-01-15 00:00:00 Telephone Elidia Cordero 1.2.840.1 51344.1.1 3.104.2.7 .3.116271 .8 [id number] [facility] 2023-01-12 00:00:00 2023-01-12 00:00:00 Patient Secure Msg Dominic Keita 1.2.840.1 04467.1.1 3.104.2.7 .3.284002 .8 [id number] [facility] 2022-12-29 09:30:00 2022-12-29 09:30:00 Outpatient JENNY SESAY RIZWAN [facility] [id number] [facility] 2022-12-29 00:00:00 2022-12-29 00:00:00 Telephone Elidia Cordero 1.2.840.1 27542.1.1 3.104.2.7 .3.694903 .8 [id number] [facility] 2022-12-29 00:00:00 2022-12-29 00:00:00 Telephone Elidia Cordero 1.2.840.1 41921.1.1 3.104.2.7 .3.214022 .8 [id number] [facility] 2022-12-28 00:00:00 2022-12-28 00:00:00 Case Management Elidia Cordero 1.2.840.1 49827.1.1 3.104.2.7 .3.102986 .8 [id number] [facility] 2022-12-20 16:00:00 2022-12-20 16:46:31 Outpatient R [facility] [id number] [facility] 2022-12-20 09:49:08 2022-12-20 09:49:08 Outpatient [facility] [id number] Robert F Viraj 2022-12-19 00:00:00 2022-12-19 00:00:00 Travel 1.2.840.1 63482.1.1 3.104.2.7 .3.472786 .8 1.2.840.114 350.1.13.10 4.2.7.3.698 084.8 [id number] [facility] 2022-12-18 09:30:00 2022-12-18 09:30:00 Outpatient R [facility] [id number] [facility] 2022-12-18 00:00:00 2022-12-18 00:00:00 Telephone Elidia Cordero 1.2.840.1 25633.1.1 3.104.2.7 .3.619993 .8 [id number] [facility] 2022-12-14 00:00:00 2022-12-14 00:00:00 Patient Secure Msg Doctor Unassigned, [place] 1.840.1 63680.1.1 3.104.2.7 .3.475280 .8 [id number] [facility] 2022-12-11 08:45:00 2022-12-11 08:45:00 Outpatient R [facility] [id number] [facility] 2022-12-10 00:00:00 2022-12-10 00:00:00 Outpatient GC_GCBZW_Ka diyala_S PRIV [facility] [id number] [facility] 2022-12-08 15:30:00 2022-12-08 15:30:00 Outpatient R JENNY ARRIAGA RIZWAN [facility] [id number] [facility] 2022-12-06 08:00:00 2022-12-06 08:00:00 Outpatient R ONEIDA MONTANA [facility] [id number] [facility] 2022-11-29 00:00:00 2022-11-29 00:00:00 Telephone Elidia Cordero 1.840.1 19862.1.1 3.104.2.7 .3.809610 .8 [id number] [facility] 2022-11-27 00:00:00 2022-11-27 00:00:00 Telephone Elidia Cordero 1.2840.1 13492.1.1 3.104.2.7 .3.262202 .8 [id number] [facility] 2022-11-27 00:00:00 2022-11-27 00:00:00 Telephone Elidia Cordero 1.2.840.1 77462.1.1 3.104.2.7 .3.476984 .8 [id number] [facility] 2022-11-23 00:00:00 2022-11-23 00:00:00 Telephone Elidia Cordero 1.2.840.1 06272.1.1 3.104.2.7 .3.769652 .8 [id number] [facility] 2022-11-23 00:00:00 2022-11-23 00:00:00 Telephone Elidia Cordero 1.2.840.1 61577.1.1 3.104.2.7 .3.329343 .8 [id number] [facility] 2022-11-22 09:30:00 2022-11-22 09:30:00 Outpatient R [facility] [id number] [facility] 2022-11-16 00:00:00 2022-11-16 00:00:00 Telephone Elidia Cordero 1.2.840.1 29893.1.1 3.104.2.7 .3.501371 .8 [id number] [facility] 2022-11-16 00:00:00 2022-11-16 00:00:00 Patient Secure Msg Dominic Keita 1.2.840.1 92139.1.1 3.104.2.7 .3.957845 .8 [id number] [facility] 2022-11-13 06:59:00 2022-11-13 09:48:00 [facility] [id number] [facility] 2022-11-13 06:59:00 2022-11-13 09:48:00 Hospital Encounter Dominic Keita 1.2.840.1 31618.1.1 3.104.2.7 .3.357216 .8 [id number] [facility] 2022-11-13 07:58:00 2022-11-13 08:33:00 Anesthesia Event Anthony HunterTing Corcoran 1.2.840.1 50027.1.1 3.104.2.7 .3.212922 .8 [id number] [facility] 2022-11-13 07:15:00 2022-11-13 08:15:00 Surgery Dominic Keita 1.2.840.1 79061.1.1 3.104.2.7 .3.247207 .8 [id number] [facility] 2022-11-13 00:00:00 2022-11-13 00:00:00 Orders Only Doctor Unassigned, [place] 1.2.840.1 89754.1.1 3.104.2.7 .3.909908 .8 [id number] [facility] 2022-11-13 00:00:00 2022-11-13 00:00:00 Telephone Dominic Keita 1.2.840.1 31219.1.1 3.104.2.7 .3.960436 .8 [id number] [facility] 2022-11-13 00:00:00 2022-11-13 00:00:00 Travel 1.2.840.1 42409.1.1 3.104.2.7 .3.755554 .8 1.2.840.114 350.1.13.10 4.2.7.3.698 084.8 [id number] [facility] 2022-11-10 00:00:00 2022-11-10 00:00:00 Outpatient R RADIOLOGY [facility] [id number] [facility] 2022-11-10 00:00:00 2022-11-10 00:00:00 Patient Secure Msg Dominic Keita 1.2.840.1 24324.1.1 3.104.2.7 .3.057622 .8 [id number] [facility] 2022-11-09 00:00:00 2022-11-09 00:00:00 Patient Secure Msg Doctor Unassigned, [place] 1.2.840.1 45468.1.1 3.104.2.7 .3.929448 .8 [id number] [facility] 2022-11-07 00:00:00 2022-11-07 00:00:00 Patient Secure Msg Doctor Unassigned, [place] 1.2.840.1 61340.1.1 3.104.2.7 .3.470789 .8 [id number] [facility] 2022-11-03 10:36:00 2022-11-03 13:16:00 Emergency X DORA NEWMAN [facility] ERT [id number] [facility] 2022-11-03 10:36:00 2022-11-03 13:16:00 Emergency Dora Newman 1.2.840.1 68704.1.1 3.104.2.7 .3.731297 .8 [id number] [facility] 2022-11-03 00:00:00 2022-11-03 00:00:00 Travel 1.2.840.1 42000.1.1 3.104.2.7 .3.882282 .8 1.2.840.114 350.1.13.10 4.2.7.3.698 084.8 [id number] [facility] 2022-10-30 00:00:00 2022-10-30 00:00:00 Case Management Elidia Cordero 1.2.840.1 67948.1.1 3.104.2.7 .3.991359 .8 [id number] [facility] 2022-10-19 08:30:00 2022-10-19 08:45:00 Copper Tapper Visit Jewel Cunha [facility] 1.2.840.1 15361.1.1 3.104.2.7 .3.816888 .8 [id number] [facility] 2022-10-19 07:30:00 2022-10-19 08:15:30 Outpatient R JEWEL CUNHA [facility] [id number] [facility] 2022-10-19 07:30:00 2022-10-19 08:15:30 [facility].840.1 51421.1.1 3.104.2.7 .3.700419 .8 [id number] [facility] 2022-10-19 00:00:00 2022-10-19 00:00:00 Orders Only Doctor Unassigned, [place] 1.2.840.1 58432.1.1 3.104.2.7 .3.377382 .8 [id number] [facility] 2022-10-18 00:00:00 2022-10-18 00:00:00 Travel 1.2.840.1 17621.1.1 3.104.2.7 .3.536643 .8 1.2.840.114 350.1.13.10 4.2.7.3.698 084.8 [id number] [facility] 2022-10-12 09:56:06 2022-10-12 09:56:06 Outpatient [facility] [id number] Robert F Viraj 2022-10-12 00:00:00 2022-10-12 00:00:00 Orders Only Doctor Unassigned, [place] 1.2.840.1 63022.1.1 3.104.2.7 .3.935586 .8 [id number] [facility] 2022-10-05 10:15:00 2022-10-05 10:30:00 Copper Tapper Visit Kath Vences, [facility] 1.2.840.1 06645.1.1 3.104.2.7 .3.619691 .8 [id number] [facility] 2022-10-05 10:15:00 2022-10-05 10:15:00 Outpatient R KATH VENCES [facility] [id number] [facility] 2022-10-04 09:30:00 2022-10-04 10:30:11 Outpatient R DEXTER DIAS [facility] [id number] [facility] 2022-10-04 00:00:00 2022-10-04 00:00:00 Orders Only Doctor Unassigned, [place] 1.2.840.1 85298.1.1 3.104.2.7 .3.391980 .8 [id number] [facility] 2022-10-04 00:00:00 2022-10-04 00:00:00 Travel 1.2.840.1 57510.1.1 3.104.2.7 .3.794341 .8 1.2.840.114 350.1.13.10 4.2.7.3.698 084.8 [id number] [facility] 2022-10-02 00:00:00 2022-10-02 00:00:00 Travel 1.2.840.1 11656.1.1 3.104.2.7 .3.860501 .8 1.2.840.114 350.1.13.10 4.2.7.3.698 084.8 [id number] [facility] 2022-09-06 08:45:00 2022-09-06 08:45:00 Outpatient R SARA HESTER KIMBERLY [facility] [id number] [facility] 2022-09-06 00:00:00 2022-09-06 00:00:00 Travel 1.2.840.1 15700.1.1 3.104.2.7 .3.173473 .8 1.2.840.114 350.1.13.10 4.2.7.3.698 084.8 [id number] [facility] 2022-07-26 11:00:00 2022-07-26 11:15:00 Copper Tapper Visit Pathology Pcp-Lab 1.2.840.1 75768.1.1 3.104.2.7 .3.537997 .8 [id number] [facility] 2022-07-26 08:45:00 2022-07-26 09:37:46 Outpatient SARA DELGADILLO KIMBERLY [facility] [id number] [facility] 2022-07-26 00:00:00 2022-07-26 00:00:00 Orders Only Doctor Unassigned, [place] 1.2.840.1 09020.1.1 3.104.2.7 .3.666149 .8 [id number] [facility] 2022-07-26 00:00:00 2022-07-26 00:00:00 Travel 1.2.840.1 48296.1.1 3.104.2.7 .3.004279 .8 1.2.840.114 350.1.13.10 4.2.7.3.698 084.8 [id number] [facility] 2022-07-24 13:24:12 2022-07-24 13:24:12 Outpatient SFA SFA [id number] Robert Cali 2022-06-27 13:49:18 2022-06-27 13:49:18 Outpatient SFA SFA [id number] Robert Ambrose Viraj 2022-06-21 08:52:50 2022-06-21 08:52:50 Outpatient SFA SFA [id number] Robert Ambrose Viraj 2022-06-15 15:23:34 2022-06-15 15:23:34 Outpatient SFA SFA [id number] Robert Ambrose Viraj 2022-05-31 08:45:00 2022-05-31 08:45:00 Outpatient SARA DELGADILLO K[facility]BERLY [facility] [id number] [facility] 2022-05-30 11:55:27 2022-05-30 11:55:27 Outpatient [facility] [id number] Robert Ambrose [place] 2022-05-23 11:17:29 2022-05-23 11:17:29 Outpatient [facility] [id number] Robert Ambrose [place] 2022-05-12 08:06:11 2022-05-12 08:06:11 Outpatient [facility] [id number] Robert Ambrose [place] 2022-05-11 13:45:44 2022-05-11 13:45:44 Outpatient [facility] [id number] Robert Ambrose [place] 2022-04-08 00:00:00 2022-04-08 00:00:00 Orders Only Doctor Unassigned, [place] 1.2.840.1 73147.1.1 3.104.2.7 .3.628417 .8 [id number] [facility] 2022-02-21 00:00:00 2022-02-21 00:00:00 Orders Only Doctor Unassigned, [place] 1.2.840.1 48272.1.1 3.104.2.7 .3.243612 .8 [id number] [facility] 2022-02-15 13:30:00 2022-02-15 13:45:00 Copper Tapper Visit Pathology Pcp-Lab 1.2.840.1 81400.1.1 3.104.2.7 .3.474425 .8 [id number] [facility] 2022-02-15 08:45:00 2022-02-15 10:52:26 Outpatient DEXTER MIRELES [facility] [id number] [facility] 2022-02-15 00:00:00 2022-02-15 00:00:00 Travel 1.2.840.1 23041.1.1 3.104.2.7 .3.658558 .8 1.2.840.114 350.1.13.10 4.2.7.3.698 084.8 [id number] [facility] 2022-01-11 11:00:00 2022-01-11 12:39:46 Outpatient SARA DELGADILLO KIMBERLY [facility] [id number] [facility] 2022-01-11 00:00:00 2022-01-11 00:00:00 Orders Only Doctor Unassigned, [place] 1.2.840.1 28863.1.1 3.104.2.7 .3.660835 .8 [id number] [facility] 2022-01-11 00:00:00 2022-01-11 00:00:00 Travel 1.2.840.1 98778.1.1 3.104.2.7 .3.883785 .8 1.2.840.114 350.1.13.10 4.2.7.3.698 084.8 [id number] [facility] 2021-11-24 09:30:00 2021-11-24 09:30:00 Outpatient IGOR Castaneda RAI [facility] [id number] [facility] 2021-11-16 11:00:00 2021-11-16 11:00:00 Outpatient SARA DELGADILLO [facility] [id number] [facility] 2021-10-26 08:00:00 2021-10-26 08:00:00 Outpatient DEXTER MIRELES [facility] [id number] [facility] 2021-10-20 10:00:00 2021-10-20 10:00:00 Outpatient IGOR Castaneda RAI [facility] [id number] [facility] 2021-10-03 14:30:00 2021-10-03 14:30:00 Outpatient DAVIDSON MEYER [facility] [id number] [facility] 2021-09-21 09:30:00 2021-09-21 09:30:00 Outpatient R DEXTER DIAS [facility] [id number] [facility] 2021-08-24 09:30:00 2021-08-24 10:41:34 [facility] [id number] [facility] 2021-08-24 00:00:00 2021-08-24 00:00:00 Travel 1.2.840.1 11485.1.1 3.104.2.7 .3.613913 .8 1.2.840.114 350.1.13.10 4.2.7.3.698 084.8 [id number] [facility] 2021-07-25 09:00:00 2021-07-25 09:00:00 [facility] [id number] [facility] 2021-06-22 11:15:00 2021-06-22 12:18:05 [facility] [id number] [facility] 2021-06-22 11:15:00 2021-06-22 11:15:00 Outpatient R SARA HESTER [facility] [id number] [facility] 2021-06-22 00:00:00 2021-06-22 00:00:00 Travel 1.2.840.1 49102.1.1 3.104.2.7 .3.735158 .8 1.2.840.114 350.1.13.10 4.2.7.3.698 084.8 [id number] [facility] 2021-06-20 11:15:00 2021-06-20 11:15:00 [facility] [id number] [facility] 2021-06-20 11:15:00 2021-06-20 11:15:00 Outpatient R DEXTER DIAS [facility] [id number] [facility] 2021-06-08 09:20:00 2021-06-08 09:20:00 Outpatient R HILARY MOORE HILARY MOORE [facility] [id number] [facility] 2021-06-08 00:00:00 2021-06-08 00:00:00 Patient Secure Igor Saavedra [facility] 1.2.840.114 350.1.13.10 4.2.7.2.686 [id number] [facility] 2021-06-07 09:13:00 2021-06-07 10:50:00 Emergency X MONROY, GIGI [facility] [id number] [facility] 2021-06-07 09:13:00 2021-06-07 10:50:00 Emergency Gigi Monroy [facility] 1.2.840.114 350.1.13.10 4.2.7.2.686 [id number] [facility] 2021-06-07 09:13:00 2021-06-07 10:50:00 Emergency Gigi 1.2.840.1 64287.1.1 3.104.2.7 .3.605376 .8 [id number] [facility] 2021-06-07 00:00:00 2021-06-07 00:00:00 Outpatient Tonya IGOR SAAVEDRA [facility] [id number] [facility] 2021-06-07 00:00:00 2021-06-07 00:00:00 Orders Only Doctor Unassigned, [place] [facility] 1.2.840.114 350.1.13.10 4.2.7.2.686 [id number] [facility] 2021-06-07 00:00:00 2021-06-07 00:00:00 Travel 1.2.840.1 64623.1.1 3.104.2.7 .3.594061 .8 1.2.840.114 350.1.13.10 4.2.7.3.698 084.8 [id number] [facility] 2021-06-07 00:00:00 2021-06-07 00:00:00 Orders Only Doctor Unassigned, [place] 1.2.840.1 91059.1.1 3.104.2.7 .3.019562 .8 [id number] [facility] 2021-06-03 00:00:00 2021-06-03 00:00:00 Travel 1.2.840.1 11617.1.1 3.104.2.7 .3.180663 .8 1.2.840.114 350.1.13.10 4.2.7.3.698 084.8 [id number] [facility] 2021-05-27 00:00:00 2021-05-27 00:00:00 [facility] [id number] [facility] 2021-05-27 00:00:00 2021-05-27 00:00:00 Outpatient IGOR Castaneda RAI [facility] [id number] [facility] 2021-05-25 00:00:00 2021-05-25 00:00:00 Patient Secure Msg Doctor Unassigned, Holt [facility] 1.2.840.114 350.1.13.10 4.2.7.2.686 [id number] [facility] 2021-05-25 00:00:00 2021-05-25 00:00:00 Patient Secure Msg Doctor Unassigned, Holt 1.2.840.1 38669.1.1 3.104.2.7 .3.991879 .8 [id number] [facility] 2021-05-20 00:00:00 2021-05-20 00:00:00 Telephone Jones Best, Nelitza 1.2.840.1 04217.1.1 3.104.2.7 .3.817035 .8 [id number] [facility] 2021-05-20 00:00:00 2021-05-20 00:00:00 Telephone Zane Martinez 1.2.840.1 42213.1.1 3.104.2.7 .3.803079 .8 [id number] [facility] 2021-05-18 00:00:00 2021-05-18 00:00:00 Travel 1.2.840.1 10546.1.1 3.104.2.7 .3.938703 .8 1.2.840.114 350.1.13.10 4.2.7.3.698 084.8 [id number] [facility] 2021-05-18 00:00:00 2021-05-18 00:00:00 Travel 1.2.840.1 36750.1.1 3.104.2.7 .3.837621 .8 1.2.840.114 350.1.13.10 4.2.7.3.698 084.8 [id number] [facility] 2021-05-17 13:15:00 2021-05-17 13:30:00 Copper Tapper Visit Pcp-Lab Igor Saavedra [facility] 1.2.840.114 350.1.13.10 4.2.7.2.686 [id number] [facility] 2021-05-17 13:15:00 2021-05-17 13:30:00 Copper Tapper Visit Igor Saavedra Pcp-Lab 1.2.840.1 31463.1.1 3.104.2.7 .3.716493 .8 [id number] [facility] 2021-05-17 13:15:00 2021-05-17 13:30:00 Copper Tapper Visit Igor Saavedra Pcp-Lab 1.2.840.1 92627.1.1 3.104.2.7 .3.837307 .8 [id number] [facility] 2021-05-17 09:00:00 2021-05-17 10:25:05 Outpatient R IGOR SAAVEDRA [facility] [id number] [facility] 2021-05-17 09:00:00 2021-05-17 10:25:05 Office Visit Igor Saavedra Neeharika 1.2.840.1 05935.1.1 3.104.2.7 .3.919731 .8 [id number] [facility] 2021-05-17 09:00:00 2021-05-17 10:25:05 Outpatient R IGOR SAAVEDRA [facility] [id number] [facility] 2021-05-17 09:30:00 2021-05-17 09:30:00 Outpatient R IGOR SAAVEDRA [facility] [id number] [facility] 2021-05-17 00:00:00 2021-05-17 00:00:00 Travel 1.2.840.1 16164.1.1 3.104.2.7 .3.938498 .8 1.2.840.114 350.1.13.10 4.2.7.3.698 084.8 [id number] [facility] 2021-05-17 00:00:00 2021-05-17 00:00:00 Travel 1.2.840.1 22648.1.1 3.104.2.7 .3.391777 .8 1.2.840.114 350.1.13.10 4.2.7.3.698 084.8 [id number] [facility] 2021-04-26 09:00:00 2021-04-26 09:00:00 Outpatient R [facility] [id number] [facility] 2021-04-26 09:00:00 2021-04-26 09:00:00 Outpatient R WENDY, AVELINO [facility] [id number] [facility] 2021-04-20 08:45:00 2021-04-20 08:45:00 Outpatient SARA DELGADILLO KIMBERLY [facility] [id number] [facility] 2021-04-11 08:40:00 2021-04-11 08:40:00 Outpatient SALLY FIGUEROA HOWARD [facility] [id number] [facility] 2021-04-11 08:40:00 2021-04-11 08:40:00 Outpatient SALLY FIGUEROA HOWARD [facility] [id number] [facility] 2021-03-21 08:00:00 2021-03-21 08:00:00 Outpatient SALLY FIGUEROA HOWARD [facility] [id number] [facility] 2021-03-17 00:00:00 2021-03-17 00:00:00 Patient Secure Msg [facility]assigned[facility] 1.2.840.114 350.1.13.10 4.2.7.2.686 [id number] [facility] 2021-03-17 00:00:00 2021-03-17 00:00:00 Patient Secure Msg Doctor Unassigned, Holt 1.2.840.1 13472.1.1 3.104.2.7 .3.083699 .8 [id number] [facility] 2021-03-17 00:00:00 2021-03-17 00:00:00 Patient Secure Msg Doctor Unassigned, Holt 1.2.840.1 72242.1.1 3.104.2.7 .3.567579 .8 [id number] [facility] 2021-03-16 13:15:00 2021-03-16 13:30:00 Copper Tapper Visit Salbador Lockwood Pcp-Lab 1.2.840.1 72689.1.1 3.104.2.7 .3.630454 .8 [id number] [facility] 2021-03-16 13:15:00 2021-03-16 13:30:00 Copper Tapper Visit Salbador Lockwood Pcp-Lab 1.2.840.1 92182.1.1 3.104.2.7 .3.485915 .8 [id number] [facility] 2021-03-16 13:15:00 2021-03-16 13:15:00 Outpatient SALBADOR CRONIN [facility] [id number] [facility] 2021-03-16 12:00:00 2021-03-16 12:09:51 Outpatient SARA DELGADILLO KIMBERLY [facility] [id number] [facility] 2021-03-16 12:00:00 2021-03-16 12:09:51 Outpatient SARA DELGADILLO KIMBERLY [facility] [id number] [facility] 2021-03-16 12:00:00 2021-03-16 12:00:00 Outpatient SARA DELGADILLO KIMBERLY [facility] [id number] [facility] 2021-03-16 00:00:00 2021-03-16 00:00:00 Travel 1.2.840.1 85972.1.1 3.104.2.7 .3.142020 .8 1.2.840.114 350.1.13.10 4.2.7.3.698 084.8 [id number] [facility] 2021-03-16 00:00:00 2021-03-16 00:00:00 Travel 1.2.840.1 15204.1.1 3.104.2.7 .3.142536 .8 1.2.840.114 350.1.13.10 4.2.7.3.698 084.8 [id number] [facility] 2021-03-11 09:44:00 2021-03-11 13:06:00 Emergency X PAULINA CONNORRA [facility] [id number] [facility] 2021-03-11 09:44:00 2021-03-11 13:06:00 Emergency Paulina Connorra Cates 1.2.840.1 90048.1.1 3.104.2.7 .3.748237 .8 [id number] [facility] 2021-03-11 09:44:00 2021-03-11 13:06:00 Emergency X GEETA HALIMA [facility] [id number] [facility] 2021-03-11 09:44:00 2021-03-11 13:06:00 Emergency Geeta Halima [facility] 1.2.840.1 15994.1.1 3.104.2.7 .3.742860 .8 [id number] [facility] 2021-03-11 09:44:00 2021-03-11 13:06:00 Emergency X GEETA HALIMA [facility] E[facility] [id number] [facility] 2021-03-11 09:44:00 2021-03-11 09:44:00 Emergency X PAULINA CONNORRA [facility] ERT [id number] [facility] 2021-03-11 00:00:00 2021-03-11 00:00:00 Travel 1.2.840.1 99181.1.1 3.104.2.7 .3.603276 .8 1.2.840.114 350.1.13.10 4.2.7.3.698 084.8 [id number] [facility] 2021-03-11 00:00:00 2021-03-11 00:00:00 Travel 1.2.840.1 94523.1.1 3.104.2.7 .3.063364 .8 1.2.840.114 350.1.13.10 4.2.7.3.698 084.8 [id number] [facility] 2021-03-08 15:00:00 2021-03-08 15:15:00 Copper Tapper Visit Salbador Lockwood Pcp-Lab 1.2.840.1 74800.1.1 3.104.2.7 .3.428156 .8 [id number] [facility] 2021-03-08 15:00:00 2021-03-08 15:15:00 Copper Tapper Visit Salbador Lockwood Pcp-Lab 1.2840.1 12580.1.1 3.104.2.7 .3.452371 .8 [id number] [facility] 2021-03-08 15:00:00 2021-03-08 15:00:00 Outpatient R SALBADOR LOCKWOOD [facility] [id number] [facility] 2021-01-31 10:15:00 2021-01-31 10:55:06 [facility] [id number] 2020-12-29 08:00:00 2020-12-29 08:41:00 [facility] [id number] [facility] 2020-12-29 08:00:00 2020-12-29 08:41:00 Outpatient [facility] [id number] [facility] 2020-12-29 00:00:00 2020-12-29 00:00:00 Travel 1.2.840.1 39852.1.1 3.104.2.7 .3.251026 .8 1.2.840.114 350.1.13.10 4.2.7.3.698 084.8 [id number] [facility] 2020-12-29 00:00:00 2020-12-29 00:00:00 Travel 1.2.840.1 03556.1.1 3.104.2.7 .3.315564 .8 1.2.840.114 350.1.13.10 4.2.7.3.698 084.8 [id number] [facility] 2020-12-22 09:30:00 2020-12-22 09:30:00 Outpatient R DEXTER DIAS [facility] [id number] [facility] 2020-12-22 09:30:00 2020-12-22 09:30:00 Outpatient R [facility] [id number] [facility] 2020-11-26 00:00:00 2020-11-26 00:00:00 Orders Only Doctor Unassigned, Holt [facility] 1.2.840.114 350.1.13.10 4.2.7.2.686 [id number] [facility] 2020-11-10 09:30:00 2020-11-10 09:30:00 Outpatient R ROBERT NOWAK [facility] [id number] [facility] 2020-11-10 00:00:00 2020-11-10 00:00:00 Orders Only Doctor Unassigned, Holt 1.2.840.1 92378.1.1 3.104.2.7 .3.231608 .8 [id number] [facility] 2020-11-10 00:00:00 2020-11-10 00:00:00 Travel 1.2.840.1 59448.1.1 3.104.2.7 .3.246520 .8 1.2.840.114 350.1.13.10 4.2.7.3.698 084.8 [id number] [facility] 2020-10-11 08:00:00 2020-10-11 08:00:00 Outpatient R [facility] [id number] [facility] 2020-10-11 00:00:00 2020-10-11 00:00:00 Travel 1.2.840.1 89372.1.1 3.104.2.7 .3.952510 .8 1.2.840.114 350.1.13.10 4.2.7.3.698 084.8 [id number] [facility] 2020-09-13 08:00:00 2020-09-13 08:00:00 Outpatient DEXTER MIRELES [facility] [id number] [facility] 2020-09-13 00:00:00 2020-09-13 00:00:00 Travel 1.2.840.1 48712.1.1 3.104.2.7 .3.306163 .8 1.2.840.114 350.1.13.10 4.2.7.3.698 084.8 [id number] [facility] 2020-09-02 16:12:00 2020-09-02 20:21:00 Emergency Patti Rose [facility] 1.2.840.114 350.1.13.10 4.2.7.2.686 [id number] 2020-09-02 16:12:00 2020-09-02 20:21:00 Emergency Patti Rose 1.2.840.1 77744.1.1 3.104.2.7 .3.177278 .8 [id number] [facility] 2020-09-02 00:00:00 2020-09-02 00:00:00 Orders Only Doctor Unassigned, Holt [facility] 1.2.840.114 350.1.13.10 4.2.7.2.686 [id number] 2020-09-02 00:00:00 2020-09-02 00:00:00 Travel 1.2.840.1 59297.1.1 3.104.2.7 .3.415419 .8 1.2.840.114 350.1.13.10 4.2.7.3.698 084.8 [id number] [facility] 2020-09-02 00:00:00 2020-09-02 00:00:00 Orders Only Doctor Unassigned, Holt 1.2.840.1 94742.1.1 3.104.2.7 .3.381637 .8 [id number] [facility] 2020-08-25 09:15:00 2020-08-25 09:15:00 Outpatient R [facility] [id number] [facility] 2020-08-09 08:45:00 2020-08-09 08:45:00 [facility] [id number] [facility] 2020-06-28 13:45:00 2020-06-28 13:45:00 Outpatient R SALBADOR LOCKWOOD [facility] [id number] [facility] 2020-06-21 15:15:00 2020-06-21 15:15:00 [facility] [id number] [facility] 2020-06-07 08:45:00 2020-06-07 08:45:00 [facility] [id number] [facility] 2020-05-25 08:30:00 2020-05-25 08:30:00 Outpatient R CRISTO MARTINEZ [facility] [id number] [facility] 2020-03-15 13:00:00 2020-03-15 13:00:00 Outpatient R SALBADOR LOCKWOOD [facility] [id number] [facility] 2020-03-08 13:00:00 2020-03-08 13:00:00 [facility] [id number] [facility] 2020-02-16 11:00:00 2020-02-16 11:00:00 [facility] [id number] [facility] 2020-01-27 11:45:00 2020-01-27 11:45:00 [facility] [id number] [facility] 2020-01-19 08:00:00 2020-01-19 08:00:00 Outpatient R DEXTER DIAS [facility] [id number] [facility] 2019-12-22 08:45:00 2019-12-22 08:45:00 Outpatient DEXTER MIRELES [facility] [id number] [facility] 2019-12-05 10:45:00 2019-12-05 10:45:00 Outpatient R JEWEL MORAES [facility] [id number] [facility] 2019-10-23 09:15:00 2019-10-23 09:15:00 Outpatient R KATH DELGADO [facility] [id number] [facility] 2019-10-15 11:30:00 2019-10-15 11:30:00 Outpatient ROBERT MURILLO [facility] [id number] [facility] 2019-10-01 14:30:00 2019-10-01 14:30:00 Outpatient ROBERT MURILLO [facility] [id number] [facility] 2019-09-01 08:45:00 2019-09-01 08:45:00 Outpatient R DEXTER DIAS [facility] [id number] [facility] 2019-08-06 13:00:00 2019-08-06 13:00:00 Outpatient ANGELA HERRERA [facility] [id number] [facility] Results Test Description Test Time Test Comments Results Result Co mments Source [facility] MedicalThyrotropin [Units/volume] in Serum or [id number] 00:00:00* Test Item Value Reference Range Interpretation Comme nts TSH (test code = TSH) 1.100 uIU/mL 0.500-4.530 [facility] MedicalEstradiol (E2) [Mass/volume] in Serum or [id number] 00:00:00 * Test Item Value Reference Range Interpretation Comme nts estradiol (test code = estradiol) 81.3 pg/mL 6.1-91.9 [facility] MedicalFollitropin [Units/volume] in Serum or [id number] 00:00:00* Test Item Value Reference Range Interpretation Comme nts FSH (test code = FSH) 3.9 mIU/mL [facility] Medicalurinalysis, [id number] 08:44:12* Test Item Value Reference Range Interpretation Comme nts Leukocytes (test code = Leukocytes) 1+ Nitrite (test code = Nitrite) negative Urobilinogen (test code = Urobilinogen) Normal Protein (test code = Protein) Negative pH (test code = pH) 6.0 Blood (test code = Blood) Non-Hemolyzed: Moderate Specific [place] (test code = Specific [place]) 1.020 Ketone (test code = Ketone) Negative Bilirubin (test code = Bilirubin) Negative Glucose (test code = Glucose) Negative Appearance (test code = Appearance) Slightly Cloudy Color (test code = Color) Yellow [facility] MedicalANA (ANTI-NUCLEAR AB) WITH REFLEX [id number] 00:00:00* Test Item Value Reference Range Interpretation Comme nts ANTI-NUCLEAR ANTIBODIES (aram t code = 3506) NEGATIVE YAZMIN PATTERN (REPORTED TITER) (test code = 22946) SEE BELOW HOMOGENEOUS (test code = 16125) NEGATIVE TITER SPECKLED (test code = 296672) NEGATIVE TITER DENSE FINE SPECKLED (test co de = 73463) NEGATIVE TITER CENTROMERE (test code = 457170) NEGATIVE TITER COARSE SPECKLED (test code = 966619) NEGATIVE TITER DISCRETE NUCLEAR DOTS (test code = 409595) NEGATIVE TITER NUCLEOLAR (test code = 416421) NEGATIVE TITER NUCLEAR MEMBRANE (test code = 811790) NEGATIVE TITER CYTO. RETICULAR (SANDY) (test code = 597213) NEGATIVE COMMENTS (test code = 496667) NONE METHOD (test code = 05734) (NOTE) Robert Arnol VirajCOMPLEMENT, TOTAL [id number] 00:00:00* Test Item Value Reference Range Interpretation Comme nts COMPLEMENT, TOTAL HEM (test code = 3508) 61 U/mL Robert Arnol VirajdsDNA [id number] 00:00:00* Test Item Value Reference Range Interpretation Comme nts dsDNA ANTIBODY (test code = 4287) <1.0 IU/ML Robert Arnol VirajC-REACTIVE [id number] 00:00:00* Test Item Value Reference Range Interpretation Comme nts C-REACTIVE PROTEIN (test cod e = 3513) 0.6 MG/DL Robert F AustinSEDIMENTATION [id number] 00:00:00* Test Item Value Reference Range Interpretation Comme nts SEDIMENTATION RATE (test cod e = 1017) 5 MM/HOUR Robert CaliRHEUMATOID FACTOR, [id number] 00:00:00* Test Item Value Reference Range Interpretation Comme nts RHEUMATOID FACTOR, QUANT (te st code = 3502) <10 IU/ML Robert CaliRETICULOCYTE [id number] 00:00:00* Test Item Value Reference Range Interpretation Comme nts RETICULOCYTE HEMOGLOBIN (aram t code = 95682) 26.3 PG Robert CaliCBC W/AUTO [id number] 00:00:00* Test Item Value Reference Range Interpretation [...] ABS NUCLEATED RBCS (test cod e = 28154) 0.00 K/UL Robert CaliCBC W/AUTO [id number] 00:00:00* Test Item Value Reference Range Interpretation [...] ABS NUCLEATED RBCS (test cod e = 68047) 0.00 K/UL [facility] [id number] 00:00:00* Test Item Value Reference Range Interpretation [...] ABS NUCLEATED RBCS (test cod e = 62561) 0.00 K/UL Roebrt Ambrose [id number] 05:10:38* Test Item Value Reference Range Interpretation Comme nts FERRITIN (test code = 2075) 69 NG/ML 13-200 CBC W/AUTO DIFF WITH [id number] 02:22:56* Test Item Value Reference Range Interpretation [...] 0.00-0.10 ABS NUCLEATED RBCS (test code = 52348) 0.00 K/UL 0.00-0.11 UNLESS OTHER SPARROW INDICATED, ALL TESTING PERFORMED AT [facility] [address] [place] [address] REGULATORY CONSULTANT: CHARLA HENRANDEZ M.D. CLIA NUMBER [id number] [place]. [id number] 00:00:00* Test Item Value Reference Range Interpretation Comme nts FERRITIN (test code = 2075) 69 NG/ML [facility] W/AUTO [id number] 00:00:00* Test Item Value Reference Range Interpretation [...] ABS NUCLEATED RBCS (test cod e = 17153) 0.00 K/UL Robert Ambrose [id number] 00:00:00* Test Item Value Reference Range Interpretation Comme nts FERRITIN (test code = 2075) 69 NG/ML Robert Ambrose VirajCBC W/AUTO [id number] 00:00:00* Test Item Value Reference Range Interpretation [...] ABS NUCLEATED RBCS (test cod e = 12759) 0.00 K/UL Robert [id number] 00:00:00* Test Item Value Reference Range Interpretation Comme nts FERRITIN (test code = 2075) 69 NG/ML Robert CaliCBC W/AUTO [id number] 00:00:00* Test Item Value Reference Range Interpretation [...] ABS NUCLEATED RBCS (test cod e = 36787) 0.00 K/UL Robert CaliANA (ANTI-NUCLEAR AB) WITH REFLEX [id number] 06:46:04* Test Item Value Reference Range Interpretation Comme nts ANTI-NUCLEAR ANTIBODIES (test code = 3506) NEGATIVE NEGATIVE Methodology is I ndirect Immunofluorescent Assay (IFA) with a titering system using Ieo0899 cells (Hep2 cells transfected with SS-A/Ro). YAZMIN PATTERN (REPORTED TITER) (test code = 28295) SEE BELOW HOMOGENEOUS (test code = 88984) NEGATIVE TITER NEGATIVE SPECKLED (test code = 543340) NEGATIVE TITER NEGATIVE DENSE FINE SPECKLED (test code = 65733) NEGATIVE TITER NEGATIVE CENTROMERE (test code = 804778) NEGATIVE TITER NEGATIVE COARSE SPECKLED (test code = 704312) NEGATIVE TITER NEGATIVE DISCRETE NUCLEAR DOTS (test code = 392543) NEGATIVE TITER NEGATIVE NUCLEOLAR (test code = 776563) NEGATIVE TITER NEGATIVE NUCLEAR MEMBRANE (test code = 303094) NEGATIVE TITER NEGATIVE CYTO. RETICULAR (SANDY) (test code = 221373) NEGATIVE NEGATIVE COMMENTS (test code = 139698) NONE METHOD (test code = 41350) (NOTE) TESTING PERFORME D BY [employer] IFA PLATFORM.THE METHOD INCLUDES A SCREEN THRESHOLD OF 1:80, DIGITIZED AND COMPUTER ALGORITHM-ASSISTED INTERPRETATION OF TITERS AND DIGITAL PATTERNS, AND HEp-2 CELL LINE SUBSTRATE. ADDITIONAL UNUSUAL PATTERNS WILL BE GIVEN COMMENTS.FOR MORE INFORMATION, SEE [email or web address] UNLESS OTHERWISE INDICATED, ALL TESTING PERFORMED AT [facility] [address] [place] [address] REGULATORY CONSULTANT: CHARLA HERNANDEZ M.D. CLIA NUMBER [id number] [place] [place]. [id number] NOTE:2023-12-07 06:05:36* Test Item Value Reference Range Interpretation Comme nts NOTE: (test code = 998) (NOTE) IN ACCORDANCE [facility] FEDERAL GUIDELINES REQUIRING ALL VERBAL REQUESTS FOR LABORATORY TESTS TO BE ACCOMPANIED BY WRITTEN AUTHORIZATION WITHIN 30 DAYS OF THIS REQUEST, PLEASE SIGN BELOW AND RETURN A COPY OF THIS REPORT BY FAX TO THE LABORATORY SCANNING DEPARTMENT AT [phone]. PHYSICIAN'S SIGNATURE DATE NOTE: [ADDED]2023-12-07 00:00:00* Test Item Value Reference Range Interpretation Comme nts NOTE: (test code = 998) (NOTE) Robert Bailon (ANTI-NUCLEAR AB) WITH REFLEX TITER [ADDED]2023-12-07 00:00:00* Test Item Value Reference Range Interpretation Comme nts ANTI-NUCLEAR ANTIBODIES (aram t code = 3506) NEGATIVE YAZMIN PATTERN (REPORTED TITER) (test code = 05440) SEE BELOW HOMOGENEOUS (test code = 23900) NEGATIVE TITER SPECKLED (test code = 048099) NEGATIVE TITER DENSE FINE SPECKLED (test co de = 17579) NEGATIVE TITER CENTROMERE (test code = 670799) NEGATIVE TITER COARSE SPECKLED (test code = 748189) NEGATIVE TITER DISCRETE NUCLEAR DOTS (test code = 389649) NEGATIVE TITER NUCLEOLAR (test code = 713845) NEGATIVE TITER NUCLEAR MEMBRANE (test code = 713439) NEGATIVE TITER CYTO. RETICULAR (SANDY) (test code = 032434) NEGATIVE COMMENTS (test code = 086055) NONE METHOD (test code = 96259) (NOTE) Robert Ambrose VirajNOTE: [ADDED]2023-12-07 00:00:00* Test Item Value Reference Range Interpretation Comme nts NOTE: (test code = 998) (NOTE) Robert Ambrose Adamaris (ANTI-NUCLEAR AB) WITH REFLEX TITER [ADDED]2023-12-07 00:00:00* Test Item Value Reference Range Interpretation Comme nts ANTI-NUCLEAR ANTIBODIES (aram t code = 3506) NEGATIVE YAZMIN PATTERN (REPORTED TITER) (test code = 56655) SEE BELOW HOMOGENEOUS (test code = 95748) NEGATIVE TITER SPECKLED (test code = 463957) NEGATIVE TITER DENSE FINE SPECKLED (test co de = 31753) NEGATIVE TITER CENTROMERE (test code = 909331) NEGATIVE TITER COARSE SPECKLED (test code = 831785) NEGATIVE TITER DISCRETE NUCLEAR DOTS (test code = 952223) NEGATIVE TITER NUCLEOLAR (test code = 775392) NEGATIVE TITER NUCLEAR MEMBRANE (test code = 277250) NEGATIVE TITER CYTO. RETICULAR (SANDY) (test code = 067032) NEGATIVE COMMENTS (test code = 803098) NONE METHOD (test code = 69037) (NOTE) Robert Ambrose VirajNOTE: [ADDED]2023-12-07 00:00:00* Test Item Value Reference Range Interpretation Comme nts NOTE: (test code = 998) (NOTE) Robert Arnol Adamaris (ANTI-NUCLEAR AB) WITH REFLEX TITER [ADDED]2023-12-07 00:00:00* Test Item Value Reference Range Interpretation Comme nts ANTI-NUCLEAR ANTIBODIES (aram t code = 3506) NEGATIVE YAZMIN PATTERN (REPORTED TITER) (test code = 86677) SEE BELOW HOMOGENEOUS (test code = 14193) NEGATIVE TITER SPECKLED (test code = 132594) NEGATIVE TITER DENSE FINE SPECKLED (test co de = 41971) NEGATIVE TITER CENTROMERE (test code = 280485) NEGATIVE TITER COARSE SPECKLED (test code = 301743) NEGATIVE TITER DISCRETE NUCLEAR DOTS (test code = 093804) NEGATIVE TITER NUCLEOLAR (test code = 782394) NEGATIVE TITER NUCLEAR MEMBRANE (test code = 663113) NEGATIVE TITER CYTO. RETICULAR (SANDY) (test code = 101902) NEGATIVE COMMENTS (test code = 292397) NONE METHOD (test code = 05672) (NOTE) Robert CaliNOTE: [ADDED]2023-12-07 00:00:00* Test Item Value Reference Range Interpretation Comme nts NOTE: (test code = 998) (NOTE) Robert Bailon (ANTI-NUCLEAR AB) WITH REFLEX TITER [ADDED]2023-12-07 00:00:00* Test Item Value Reference Range Interpretation Comme nts ANTI-NUCLEAR ANTIBODIES (aram t code = 3506) NEGATIVE YAZMIN PATTERN (REPORTED TITER) (test code = 77527) SEE BELOW HOMOGENEOUS (test code = 66032) NEGATIVE TITER SPECKLED (test code = 632202) NEGATIVE TITER DENSE FINE SPECKLED (test co de = 64580) NEGATIVE TITER CENTROMERE (test code = 958399) NEGATIVE TITER COARSE SPECKLED (test code = 765427) NEGATIVE TITER DISCRETE NUCLEAR DOTS (test code = 577407) NEGATIVE TITER NUCLEOLAR (test code = 019682) NEGATIVE TITER NUCLEAR MEMBRANE (test code = 763804) NEGATIVE TITER CYTO. RETICULAR (SANDY) (test code = 328913) NEGATIVE COMMENTS (test code = 397499) NONE METHOD (test code = 07387) (NOTE) Robert CaliPROTEIN ELECTROPHORESIS, [id number] 14:58:50* Test Item Value Reference Range Interpretation [...] HUSSEIN M.D. VITAMIN B 12 AND FOLIC [id number] 05:31:25* Test Item Value Reference Range Interpretation [...] . . . UG/L >=6.0 COMPREHENSIVE METABOLIC [id number] 04:03:47* Test Item Value Reference Range Interpretation Comme nts GLUCOSE (test code = 2217) 95 MG/DL 70-99 BUN (test code = 2207) 13 MG/DL 6-20 CREATININE (test code = 2214) 0.65 MG/DL 0.60-1.30 eGFR (2020 CKD-EPI) (test code = 55216) 110 ML/MIN/1.73 >60 CALC BUN/CREAT (test code = 223) 20 RATIO 6-28 SODIUM (test code = [...] TESTING PERFORMED AT [facility] [address] [place] [address] REGULATORY CONSULTANT: CHARLA HERNANDEZ M.D. CLIA NUMBER [id number] [facility] [place]. [id number] CBC W/AUTO DIFF WITH [id number] 03:00:25* Test Item Value Reference Range Interpretation [...] = 1065) 0.0 /100 WBC'S See_Comment [Automated Synqeraa ge] The system which generated this result [...] 0.00-0.10 ABS NUCLEATED RBCS (test code = 97557) 0.00 K/UL 0.00-0.11 VITAMIN B 12 AND FOLIC [id number] 00:00:00* Test Item Value Reference Range Interpretation Comme nts VITAMIN B-12 (test code = 2840) 380 PG/ML FOLIC ACID (test code = 2695) 7.0 UG/L Robert Ambrose AustinPROTEIN ELECTROPHORESIS, [id number] 00:00:00* Test Item Value Reference Range Interpretation [...] (test code = 2568) (NOTE) Robert Ambrose [facility] W/AUTO [id number] 00:00:00* Test Item Value Reference Range Interpretation [...] ABS NUCLEATED RBCS (test cod e = 99168) 0.00 K/UL Robert CaliCOMPREHENSIVE METABOLIC [id number] 00:00:00* Test Item Value Reference Range Interpretation Comme nts GLUCOSE (test code = 2217) 95 MG/DL BUN (test code = 2208) 13 MG/DL CREATININE (test code = 2214) 0.65 MG/DL eGFR (2020 CKD-EPI) (test code = 66427) 110 ML/MIN/1.73 CALC BUN/CREAT (test code = [...] U/L Robert CaliVITAMIN B 12 AND FOLIC [id number] 00:00:00* Test Item Value Reference Range Interpretation Comme nts VITAMIN B-12 (test code = 2840) 380 PG/ML FOLIC ACID (test code = 2695) 7.0 UG/L Robert CaliPROTEIN ELECTROPHORESIS, [id number] 00:00:00* Test Item Value Reference Range Interpretation [...] code = 2568) (NOTE) Robert CaliCBC W/AUTO [id number] 00:00:00* Test Item Value Reference Range Interpretation [...] ABS NUCLEATED RBCS (test cod e = 48345) 0.00 K/UL Robert CaliCOMPREHENSIVE METABOLIC [id number] 00:00:00* Test Item Value Reference Range Interpretation Comme nts GLUCOSE (test code = 2217) 95 MG/DL BUN (test code = 2208) 13 MG/DL CREATININE (test code = 2214) 0.65 MG/DL eGFR (2020 CKD-EPI) (test code = 17273) 110 ML/MIN/1.73 CALC BUN/CREAT (test code = [...] 2.0 RATIO BILIRUBIN, TOTAL (test code = 220) <0.2 MG/DL ALKALINE PHOSPHATASE (test code = 220) 144 U/L AST (test code = 2218) 16 U/L ALT (test code = 2219) 16 U/L Robert CaliVITAMIN B 12 AND FOLIC [id number] 00:00:00* Test Item Value Reference Range Interpretation Comme nts VITAMIN B-12 (test code = 2840) 380 PG/ML FOLIC ACID (test code = 2695) 7.0 UG/L Robert CaliPROTEIN ELECTROPHORESIS, [id number] 00:00:00* Test Item Value Reference Range Interpretation [...] code = 2568) (NOTE) Robert CaliCBC W/AUTO [id number] 00:00:00* Test Item Value Reference Range Interpretation [...] ABS NUCLEATED RBCS (test cod e = 26190) 0.00 K/UL Robert CaliCOMPREHENSIVE METABOLIC [id number] 00:00:00* Test Item Value Reference Range Interpretation Comme nts GLUCOSE (test code = 2217) 95 MG/DL BUN (test code = 2208) 13 MG/DL CREATININE (test code = 2214) 0.65 MG/DL eGFR (2020 CKD-EPI) (test code = 69676) 110 ML/MIN/1.73 CALC BUN/CREAT (test code = [...] U/L Robert CaliVITAMIN B 12 AND FOLIC [id number] 00:00:00* Test Item Value Reference Range Interpretation Comme nts VITAMIN B-12 (test code = 2840) 380 PG/ML FOLIC ACID (test code = 2695) 7.0 UG/L Robert CaliPROTEIN ELECTROPHORESIS, [id number] 00:00:00* Test Item Value Reference Range Interpretation [...] code = 2568) (NOTE) Robert CaliCBC W/AUTO [id number] 00:00:00* Test Item Value Reference Range Interpretation [...] ABS NUCLEATED RBCS (test cod e = 23940) 0.00 K/UL Robert CaliCOMPREHENSIVE METABOLIC [id number] 00:00:00* Test Item Value Reference Range Interpretation Comme nts GLUCOSE (test code = 2217) 95 MG/DL BUN (test code = 2208) 13 MG/DL CREATININE (test code = 2214) 0.65 MG/DL eGFR (2020 CKD-EPI) (test code = 84250) 110 ML/MIN/1.73 CALC BUN/CREAT (test code = [...] 2.0 RATIO BILIRUBIN, TOTAL (test code = 7) <0.2 MG/DL ALKALINE PHOSPHATASE (test code = 4) 144 U/L AST (test code = 2218) 16 U/L ALT (test code = 2219) 16 U/L Robert Ambrose AustinHAPTOGLOBIN, [id number] 13:13:35* Test Item Value Reference Range Interpretation Comme nts HAPTOGLOBIN, QUANT (test cod e = 36596) 227 MG/DL 32-197 H [id number] 05:29:31* Test Item Value Reference Range Interpretation Comme nts TRANSFERRIN (test code = 4936) 380 MG/DL 200-360 H [id number] 05:29:31* Test Item Value Reference Range Interpretation Comme nts LDH (test code = 222) 186 U/L 135-214 [id number] 04:14:38* Test Item Value Reference Range Interpretation Comme nts FERRITIN (test code = 2075) 6 NG/ML 13-200 L VITAMIN D, 25 [id number] 04:14:10* Test Item Value Reference Range Interpretation [...] IRON BINDING CAPACITY AND IRON AND % [id number] 04:13:51* Test Item Value Reference Range Interpretation Comme nts IRON, SERUM (test code = 2222) 25 UG/DL 37-145 L UNSATURATED IBC (test code = 85421) 425 UG/DL 112-347 H CALC TOTAL IBC (test code = 2076) 450 UG/DL 250-450 CALC % IRON SAT (test code = 2078) 6 % 20-50 L URIC [id number] 04:13:51* Test Item Value Reference Range Interpretation Comme nts URIC ACID (test code = 2233) 5.8 MG/DL 2.7-6.1 UNLESS OTHERWISE INDICATED, ALL TESTING PERFORMED AT [facility] [address] [place] [address] REGULATORY CONSULTANT: CHARLA HERNANDEZ M.D. CLIA NUMBER [id number] [place]. [id number] LIPID [id number] 04:13:51* Test Item Value Reference Range Interpretation [...] SPECIMENS. FOR MOREINFORMATION, SEE CLIENT ANNOUNCEMENT AT [email or web address] RISK RATIO LDL/HDL (test code = 2238) 2.58 RATIO <3.22 COMPREHENSIVE METABOLIC [id number] 04:13:51* Test Item Value Reference Range Interpretation Comme nts GLUCOSE (test code = 2217) 97 MG/DL 70-99 BUN (test code = 2208) 9 MG/DL 6-20 CREATININE (test code = 2214) 0.86 MG/DL 0.60-1.30 eGFR (2020 CKD-EPI) (test co de = 92378) 84 ML/MIN/1.73 >60 CALC BUN/CREAT (test code = 2235) 10 RATIO 6-28 SODIUM (test code = 2231) 140 MEQ/L 133-146 POTASSIUM (test code = 2228) 4.4 MEQ/L 3.5-5.4 CHLORIDE (test code = 2215) 104 MEQ/L 95-107 CARBON DIOXIDE (test code = 2206) 25 MEQ/L 19-31 CALCIUM (test code = 2209) 9.3 MG/DL 8.5-10.5 PROTEIN, TOTAL (test code = 222) 6.5 G/DL 6.1-8.3 ALBUMIN (test code = 220) 4.4 G/DL 3.5-5.2 CALC GLOBULIN (test code = 2240) 2.1 G/DL 1.9-3.7 CALC A/G RATIO (test code = 2233) 2.1 RATIO 1.0-2.6 BILIRUBIN, TOTAL (test code = 7) <0.2 MG/DL <=1.2 ALKALINE PHOSPHATASE (test code = 220) 149 U/L 40-118 H AST (test code = 2218) 17 U/L 9-40 ALT (test code = 2219) 22 U/L 5-40 HEMOGLOBIN [id number] 03:10:06* Test Item Value Reference Range Interpretation Comme nts HEMOGLOBIN A1c (test code = 62748) 5.6 % 4.2-5.6 CBC W/AUTO DIFF RFLX SMEAR [id number] 02:37:07* Test Item Value Reference Range Interpretation [...] MANUAL DIFFERENTIAL WILL BE PERFORMED IF INDICATED.SEE [email or web address] CONTACT YOUR LOCAL [facility] CUSTOMER SERVICEDEPARTMENT FOR FURTHER INFORMATION. LYMPHOCYTES (test [...] 0.00-0.10 ABS NUCLEATED RBCS (test code = 66250) 0.00 K/UL 0.00-0.11 RETICULOCYTE WITH [id number] 02:37:07* Test Item Value Reference Range Interpretation Comme nts RETICULOCYTE COUNT (test cod e = 1018) 2.55 % 0.80-2.40 H ABSOLUTE RETICULOCYTE (test code = 68973) 115.0 K/UL 32.0-105.0 H HEMOGLOBIN [id number] 00:00:00* Test Item Value Reference Range Interpretation Comme nts HEMOGLOBIN A1c (test code = 67673) 5.6 % Robert Ambrose [place] LakeLIP[place] [id number] 00:00:00* Test Item Value Reference Range Interpretation Comme nts CHOLESTEROL (test code = 2210) 212 MG/DL TRIGLYCERIDES (test code = 2232) 116 MG/DL HDL CHOLESTEROL (test code = 2220) 53 MG/DL CALC LDL CHOL (test code = 2237) 137 MG/DL RISK RATIO LDL/HDL (test cod e = 2238) 2.58 RATIO Robert CaliCOMPREHENSIVE METABOLIC [id number] 00:00:00* Test Item Value Reference Range Interpretation Comme nts GLUCOSE (test code = 2217) 97 MG/DL BUN (test code = 2208) 9 MG/DL CREATININE (test code = 2214) 0.86 MG/DL eGFR (2020 CKD-EPI) (test co de = 90282) 84 ML/MIN/1.73 CALC BUN/CREAT (test code = [...] 2219) 22 U/L Robert CaliVITAMIN D, 25 [id number] 00:00:00* Test Item Value Reference Range Interpretation Comme [facility] VITAMIN D, 25 OH (test code = 4958) 18 NG/ML Robert F VirajCBC W/AUTO DIFF RFLX SMEAR [id number] 00:00:00* Test Item Value Reference Range Interpretation [...] ABS NUCLEATED RBCS (test cod e = 77515) 0.00 K/UL Robert CaliRETICULOCYTE WITH [id number] 00:00:00* Test Item Value Reference Range Interpretation Comme nts RETICULOCYTE COUNT (test cod e = 1018) 2.55 % ABSOLUTE RETICULOCYTE (test code = 17776) 115.0 K/UL Robert CaliHAPTOGLOBIN, [id number] 00:00:00* Test Item Value Reference Range Interpretation Comme nts HAPTOGLOBIN, QUANT (test cod e = 07777) 227 MG/DL Robert [id number] 00:00:00* Test Item Value Reference Range Interpretation Comme nts LDH (test code = 2224) 186 U/L Robert CaliIRON BINDING CAPACITY AND IRON AND % [id number] 00:00:00* Test Item Value Reference Range Interpretation Comme nts IRON, SERUM (test code = 2222) 25 UG/DL UNSATURATED IBC (test code = 30025) 425 UG/DL CALC TOTAL IBC (test code = 2077) 450 UG/DL CALC % IRON SAT (test code = 2079) 6 % Roberteliz [id number] 00:00:00* Test Item Value Reference Range Interpretation Comme nts FERRITIN (test code = 2075) 6 NG/ML Robert Arnol [id number] 00:00:00* Test Item Value Reference Range Interpretation Comme nts TRANSFERRIN (test code = 4936) 380 MG/DL Robert Ambrose AustinURIC [id number] 00:00:00* Test Item Value Reference Range Interpretation Comme nts URIC ACID (test code = 2233) 5.8 MG/DL Robert Ambrose AustinHEMOGLOBIN [id number] 00:00:00* Test Item Value Reference Range Interpretation Comme nts HEMOGLOBIN A1c (test code = 39476) 5.6 % Robert CaliLIPID [id number] 00:00:00* Test Item Value Reference Range Interpretation Comme nts CHOLESTEROL (test code = 2210) 212 MG/DL TRIGLYCERIDES (test code = 2232) 116 MG/DL HDL CHOLESTEROL (test code = 2220) 53 MG/DL CALC LDL CHOL (test code = 2237) 137 MG/DL RISK RATIO LDL/HDL (test cod e = 2238) 2.58 RATIO Robert CaliCOMPREHENSIVE METABOLIC [id number] 00:00:00* Test Item Value Reference Range Interpretation Comme nts GLUCOSE (test code = 2217) 97 MG/DL BUN (test code = 2208) 9 MG/DL CREATININE (test code = 2214) 0.86 MG/DL eGFR (2020 CKD-EPI) (test co de = 32967) 84 ML/MIN/1.73 CALC BUN/CREAT (test code = [...] 2219) 22 U/L Robert CaliVITAMIN D, 25 [id number] 00:00:00* Test Item Value Reference Range Interpretation Comme [facility] VITAMIN D, 25 OH (test code = 4958) 18 NG/ML Robert CaliCBC W/AUTO DIFF RFLX SMEAR [id number] 00:00:00* Test Item Value Reference Range Interpretation Comme [facility] WBC (test code = 1001) 6.2 K/UL [...] ABS NUCLEATED RBCS (test cod e = 47219) 0.00 K/UL Robert Ambrose VirajRETICULOCYTE WITH [id number] 00:00:00* Test Item Value Reference Range Interpretation Comme nts RETICULOCYTE COUNT (test cod e = 1018) 2.55 % ABSOLUTE RETICULOCYTE (test code = 26005) 115.0 K/UL Robert Ambrose VirajHAPTOGLOBIN, [id number] 00:00:00* Test Item Value Reference Range Interpretation Comme nts HAPTOGLOBIN, QUANT (test cod e = 48143) 227 MG/DL Robert Ambrose [id number] 00:00:00* Test Item Value Reference Range Interpretation Comme nts LDH (test code = 4) 186 U/L Robert Ambrose AustinIRON BINDING CAPACITY AND IRON AND % [id number] 00:00:00* Test Item Value Reference Range Interpretation Comme nts IRON, SERUM (test code = 2222) 25 UG/DL UNSATURATED IBC (test code = 83561) 425 UG/DL CALC TOTAL IBC (test code = 2076) 450 UG/DL CALC % IRON SAT (test code = 2078) 6 % Robert [id number] 00:00:00* Test Item Value Reference Range Interpretation Comme nts FERRITIN (test code = 2074) 6 NG/ML Robert Ca[id number] 00:00:00* Test Item Value Reference Range Interpretation Comme nts TRANSFERRIN (test code = 4936) 380 MG/DL Robert Ambrose AustinURIC [id number] 00:00:00* Test Item Value Reference Range Interpretation Comme nts URIC ACID (test code = 2232) 5.8 MG/DL Robert CaliHEMOGLOBIN [id number] 00:00:00* Test Item Value Reference Range Interpretation Comme nts HEMOGLOBIN A1c (test code = 66564) 5.6 % Robert CaliLIPID [id number] 00:00:00* Test Item Value Reference Range Interpretation Comme nts CHOLESTEROL (test code = 0) 212 MG/DL TRIGLYCERIDES (test code = 2231) 116 MG/DL HDL CHOLESTEROL (test code = 0) 53 MG/DL CALC LDL CHOL (test code = 7) 137 MG/DL RISK RATIO LDL/HDL (test cod e = 2238) 2.58 RATIO Robert CaliCOMPREHENSIVE METABOLIC [id number] 00:00:00* Test Item Value Reference Range Interpretation Comme nts GLUCOSE (test code = 7) 97 MG/DL BUN (test code = 8) 9 MG/DL CREATININE (test code = 2214) 0.86 MG/DL eGFR (2020 CKD-EPI) (test co de = 80363) 84 ML/MIN/1.73 CALC BUN/CREAT (test code = [...] 2219) 22 U/L Robert CaliVITAMIN D, 25 [id number] 00:00:00* Test Item Value Reference Range Interpretation Comme nts VITAMIN D, 25 OH (test code = 4958) 18 NG/ML Robert CaliCBC W/AUTO DIFF RFLX SMEAR [id number] 00:00:00* Test Item Value Reference Range Interpretation [...] ABS NUCLEATED RBCS (test cod e = 08039) 0.00 K/UL Robert CaliRETICULOCYTE WITH [id number] 00:00:00* Test Item Value Reference Range Interpretation Comme nts RETICULOCYTE COUNT (test cod e = 1018) 2.55 % ABSOLUTE RETICULOCYTE (test code = 59085) 115.0 K/UL Robert CaliHAPTOGLOBIN, [id number] 00:00:00* Test Item Value Reference Range Interpretation Comme nts HAPTOGLOBIN, QUANT (test cod e = 99554) 227 MG/DL Robert [id number] 00:00:00* Test Item Value Reference Range Interpretation Comme nts LDH (test code = 222) 186 U/L Robert CaliIRON BINDING CAPACITY AND IRON AND % [id number] 00:00:00* Test Item Value Reference Range Interpretation Comme nts IRON, SERUM (test code = 2222) 25 UG/DL UNSATURATED IBC (test code = 62787) 425 UG/DL CALC TOTAL IBC (test code = 2077) 450 UG/DL CALC % IRON SAT (test code = 2079) 6 % Robert [id number] 00:00:00* Test Item Value Reference Range Interpretation Comme nts FERRITIN (test code = 2075) 6 NG/ML Robert [id number] 00:00:00* Test Item Value Reference Range Interpretation Comme nts TRANSFERRIN (test code = 4936) 380 MG/DL Robert CaliURIC [id number] 00:00:00* Test Item Value Reference Range Interpretation Comme nts URIC ACID (test code = 2233) 5.8 MG/DL Robert CaliHEMOGLOBIN [id number] 00:00:00* Test Item Value Reference Range Interpretation Comme nts HEMOGLOBIN A1c (test code = 36462) 5.6 % Robert CaliLIPID [id number] 00:00:00* Test Item Value Reference Range Interpretation Comme nts CHOLESTEROL (test code = 2210) 212 MG/DL TRIGLYCERIDES (test code = 2232) 116 MG/DL HDL CHOLESTEROL (test code = 2220) 53 MG/DL CALC LDL CHOL (test code = 2237) 137 MG/DL RISK RATIO LDL/HDL (test cod e = 2238) 2.58 RATIO Robert CaliCOMPREHENSIVE METABOLIC [id number] 00:00:00* Test Item Value Reference Range Interpretation Comme nts GLUCOSE (test code = 7) 97 MG/DL BUN (test code = 2208) 9 MG/DL CREATININE (test code = 2214) 0.86 MG/DL eGFR (2020 CKD-EPI) (test co de = 18590) 84 ML/MIN/1.73 CALC BUN/CREAT (test code = 2235) 10 RATIO SODIUM (test code = 2231) 140 MEQ/L POTASSIUM (test code = 2228) 4.4 MEQ/L CHLORIDE (test code = 2215) 104 MEQ/L CARBON DIOXIDE (test code = 2206) 25 MEQ/L CALCIUM (test code = 2209) 9.3 MG/DL PROTEIN, TOTAL (test code = 222) 6.5 G/DL ALBUMIN (test code = 220) 4.4 G/DL CALC GLOBULIN (test code = 2240) 2.1 G/DL CALC A/G RATIO (test code = 2234) 2.1 RATIO BILIRUBIN, TOTAL (test code = 2206) <0.2 MG/DL ALKALINE PHOSPHATASE (test code = 4) 149 U/L AST (test code = 2218) 17 U/L ALT (test code = 2219) 22 U/L Robert Arnol VirajVITAMIN D, 25 [id number] 00:00:00* Test Item Value Reference Range Interpretation Comme [facility] VITAMIN D, 25 OH (test code = 4958) 18 NG/ML Robert Ambrose VirajC W/AUTO DIFF RFLX SMEAR [id number] 00:00:00* Test Item Value Reference Range Interpretation Comme [facility] WBC (test code = 1001) 6.2 K/UL [...] ABS NUCLEATED RBCS (test cod e = 27999) 0.00 K/UL Robert CaliRETICULOCYTE WITH [id number] 00:00:00* Test Item Value Reference Range Interpretation Comme nts RETICULOCYTE COUNT (test cod e = 1018) 2.55 % ABSOLUTE RETICULOCYTE (test code = 26004) 115.0 K/UL Robert CaliHAPTOGLOBIN, [id number] 00:00:00* Test Item Value Reference Range Interpretation Comme nts HAPTOGLOBIN, QUANT (test cod e = 65005) 227 MG/DL Robert [id number] 00:00:00* Test Item Value Reference Range Interpretation Comme nts LDH (test code = 2224) 186 U/L Robert CaliIRON BINDING CAPACITY AND IRON AND % [id number] 00:00:00* Test Item Value Reference Range Interpretation Comme nts IRON, SERUM (test code = 2222) 25 UG/DL UNSATURATED IBC (test code = 40659) 425 UG/DL CALC TOTAL IBC (test code = 2077) 450 UG/DL CALC % IRON SAT (test code = 2079) 6 % Robert [id number] 00:00:00* Test Item Value Reference Range Interpretation Comme nts FERRITIN (test code = 2075) 6 NG/ML Robert CaliUmomgzTKDOWVLMTLM7447-29-09 00:00:00* Test Item Value Reference Range Interpretation Comme nts TRANSFERRIN (test code = 4936) 380 MG/DL Robert Ambrose AustinURIC [id number] 00:00:00* Test Item Value Reference Range Interpretation Comme nts URIC ACID (test code = 2233) 5.8 MG/DL Robert CaliCT ACUTE STROKE ANGIOGRAM [id number] 13:46:46CT STROKE ANGIOGRAM HEAD, CT STROKE ANGIOGRAM [...] caliber. The superior cerebellar arteriesare patent. The PAINTER TUMBLING BARREL are patent bilaterally. No sizable posteriorcommunicating arteries are seen. The petrous, cavernous and supraclinoid internal carotid segmentsarewidely patent. The GIBSON and MCA are patent bilaterally. An anteriorcommunicating artery is seen. The dural venous sinuses are opacified and unremarkable.[facility] [id number] 13:46:46CT STROKE ANGIOGRAM HEAD, CT STROKE ANGIOGRAM [...] caliber. The superior cerebellar arteriesare patent. The PAINTER TUMBLING BARREL are patent bilaterally. No sizable posteriorcommunicating arteries are seen. The petrous, cavernous and supraclinoid internal carotid segmentsarewidely patent. The GIBSON and MCA are patent bilaterally. An anteriorcommunicating artery is seen. The dural venous sinuses are opacified and unremarkable.[facility] [id number] 13:46:46CT STROKE ANGIOGRAM HEAD, CT STROKE ANGIOGRAM [...] caliber. The superior cerebellar arteriesare patent. The PAINTER TUMBLING BARREL are patent bilaterally. No sizable posteriorcommunicating arteries are seen. The petrous, cavernous and supraclinoid internal carotid segmentsarewidely patent. The GIBSON and MCA are patent bilaterally. An anteriorcommunicating artery is seen. The dural venous sinuses are opacified and unremarkable.[facility] ACUTE STROKE ANGIOGRAM [id number] 13:46:46CT STROKE ANGIOGRAM HEAD, CT STROKE ANGIOGRAM [...] caliber. The superior cerebellar arteriesare patent. The PAINTER TUMBLING BARREL are patent bilaterally. No sizable posteriorcommunicating arteries are seen. The petrous, cavernous and supraclinoid internal carotid segmentsarewidely patent. The GIBSON and MCA are patent bilaterally. An anteriorcommunicating artery is seen. The dural venous sinuses are opacified and unremarkable.[facility] ACUTE STROKE HEAD WO [id number] 13:44:48EXAM: CT STROKE HEAD WO CONTRAST HISTORY: [...] clear. Thecalvarium and central skull base are unremarkable.[facility] ACUTE STROKE HEAD WO [id number] 13:44:48EXAM: CT STROKE HEAD WO CONTRAST HISTORY: [...] Thecalvarium and central skull base are unremarkable.[facility] 04:29:26* Test Item Value Reference Range Interpretation Comme nts [place] (test code = 0486651638) 0.6 mmol/L 0.6-1.2 ZAINAB (test code = ZAINAB) Toxic Range: ? Greater than 1.2 mmol/L Lab Interpretation (test code = 39141-0) [place] [address]-04-26 04:29:26* Test Item Value Reference Range Interpretation Comme nts [place] (test code = 9936270430) 0.6 mmol/L 0.6-1.2 ZAINAB (test code = ZAINAB) Toxic Range: ? Greater than 1.2 mmol/L Lab Interpretation (test code = 94876-1) [address]04-26 04:29:26* Test Item Value Reference Range Interpretation Comme nts [place] (test code = 7336314991) 0.6 mmol/L 0.6-1.2 ZAINAB (test code = ZAINAB) Toxic Range: ? Greater than 1.2 mmol/L Lab Interpretation (test code = 75288-8) [address]04-26 04:29:26* Test Item Value Reference Range Interpretation Comme nts [place] (test code = 1669533603) 0.6 mmol/L 0.6-1.2 ZAINAB (test code = ZAINAB) Toxic Range: ? Greater than 1.2 mmol/L Lab Interpretation (test code = 60721-3) [address]04-26 04:29:26* Test Item Value Reference Range Interpretation Comme nts [place] (test code = 2240926991) 0.6 mmol/L 0.6-1.2 ZAINAB (test code = ZAINAB) Toxic Range: ? Greater than 1.2 mmol/L Lab Interpretation (test code = 96801-2) [address]04-26 04:29:26* Test Item Value Reference Range Interpretation Comme nts [place] (test code = 8241648103) 0.6 mmol/L 0.6-1.2 ZAINAB (test code = ZANIAB) Toxic Range: ? Greater than 1.2 mmol/L Lab Interpretation (test code = 96565-6) [address]04-26 04:29:26* Test Item Value Reference Range Interpretation Comme nts [place] (test code = 9396885518) 0.6 mmol/L 0.6-1.2 ZAINAB (test code = ZAINAB) Toxic Range: ? Greater than 1.2 mmol/L Lab Interpretation (test code = 39858-6) Normal [facility]2024-04-26 04:29:26* Test Item Value Reference Range Interpretation Comme nts [place] (test code = [id number]) 0.6 mmol/L 0.6-1.2 ZAINAB (test code = ZAINAB) Toxic Range: ? Greater than 1.2 mmol/L Lab Interpretation (test code = 96193-7) Normal [facility]2024-04-26 04:29:26* Test Item Value Reference Range Interpretation Comme nts [place] (test code = [id number]) 0.6 mmol/L 0.6-1.2 ZAINAB (test code = ZAINAB) Toxic Range: ? Greater than 1.2 mmol/L Lab Interpretation (test code = 80659-8) Normal [facility]2024-04-26 03:33:22 ALCOHOL<10mg/dL06/07/2023 10:33 PM CDTUTMB LABORATORY SERVICESToxic Greater than or equal to 80 mg/dL. NOTE: Whole blood values are approximately 10% to 15% lower than serum and plasma.[facility]2024-04-26 03:33:22ALCOHOL<10mg/dL06/07/2023 10:33 PM CDTUTMB LABORATORY SERVICESToxic Greater than or equal to 80 mg/dL. NOTE: Whole blood values are approximately 10% to 15% lower than serum and plasma.[facility] 2023-06-08 03:33:22ALCOHOL<10mg/dL06/07/2023 10:33 PM CDTUTMB LABORATORY SERVICESToxic Greater than or equal to 80 mg/dL. NOTE: Whole blood values are approximately 10% to 15% lower than serum and plasma.[facility]2024-04-26 03:33:22ALCOHOL<10mg/dL06/07/2023 10:33 PM CDTUTMB LABORATORY SERVICESToxic Greater than or equal to 80 mg/dL. NOTE: Whole blood values are approximately 10% to 15% lower than serum and plasma.[facility] [facility] 03:33:22ALCOHOL<10mg/dL06/07/2023 10:33 PM CDTUTMB LABORATORY SERVICESToxic Greater than or equal to 80 mg/dL. NOTE: Whole blood values are approximately 10% to 15% lower than serum and plasma.[facility]2024-04-26 03:33:22ALCOHOL<10mg/dL06/07/2023 10:33 PM CDTUTMB LABORATORY SERVICESToxic Greater than or equal to 80 mg/dL. NOTE: Whole blood values are approximately 10% to 15% lower than serum and plasma. [facility]2024-04-26 03:33:22 ALCOHOL<10mg/dL06/07/2023 10:33 PM CDTUTMB LABORATORY SERVICESToxic Greater than or equal to 80 mg/dL. NOTE: Whole blood values are approximately 10% to 15% lower than serum and plasma.[facility]2024-04-26 03:33:22ALCOHOL<10mg/dL06/07/2023 10:33 PM CDTUTMB LABORATORY SERVICESToxic Greater than or equal to 80 mg/dL. NOTE: Whole blood values are approximately 10% to 15% lower than serum and plasma.[facility] 2023-06-08 03:33:22ALCOHOL<10mg/dL06/07/2023 10:33 PM CDTUTMB LABORATORY SERVICESToxic Greater than or equal to 80 mg/dL. NOTE: Whole blood values are approximately 10% to 15% lower than serum and plasma.[facility] [id number] 03:15:34* Test Item Value Reference Range Interpretation Comme nts TROPONIN I (test code = 9419664157) 0.003 ng/mL <=0.034 ZAINAB (test code = [...] of biotin. Lab Interpretation (test code = 74851-6) Normal [facility] I - Code [id number] 03:15:34* Test Item Value Reference Range Interpretation Comme nts TROPONIN I (test code = 7875024329) 0.003 ng/mL <=0.034 ZAINAB (test code = [...] of biotin. Lab Interpretation (test code = 53937-6) Normal [facility] I - Code [id number] 03:15:34* Test Item Value Reference Range Interpretation Comme nts TROPONIN I (test code = 5941772148) 0.003 ng/mL <=0.034 ZAINAB (test code = [...] of biotin. Lab Interpretation (test code = 69240-5) Normal [facility] I - Code [id number] 03:15:34* Test Item Value Reference Range Interpretation Comme nts TROPONIN I (test code = 3761800508) 0.003 ng/mL <=0.034 ZAINAB (test code = [...] of biotin. Lab Interpretation (test code = 68095-6) Normal [facility] I - Code Azijwk0865-04-96 03:15:34* Test Item Value Reference Range Interpretation Comme nts TROPONIN I (test code = 9818434470) 0.003 ng/mL <=0.034 ZAINAB (test code = [...] of biotin. Lab Interpretation (test code = 40530-1) Normal [facility] I - Code [id number] 03:15:34* Test Item Value Reference Range Interpretation Comme nts TROPONIN I (test code = 9183345456) 0.003 ng/mL <=0.034 ZAINAB (test code = [...] of biotin. Lab Interpretation (test code = 47688-4) Normal [facility] I - Code Cscdly5935-19-05 03:15:34* Test Item Value Reference Range Interpretation Comme nts TROPONIN I (test code = 5168629845) 0.003 ng/mL <=0.034 ZAINAB (test code = [...] of biotin. Lab Interpretation (test code = 01528-7) Normal [facility] I - Code [id number] 03:15:34* Test Item Value Reference Range Interpretation Comme nts TROPONIN I (test code = 1791360829) 0.003 ng/mL <=0.034 ZAINAB (test code = [...] of biotin. Lab Interpretation (test code = 57834-8) Normal [facility] I - Code Xechbs0091-96-87 03:15:34* Test Item Value Reference Range Interpretation Comme nts TROPONIN I (test code = 5845337800) 0.003 ng/mL <=0.034 ZAINAB (test code = [...] of biotin. Lab Interpretation (test code = 80374-1) Normal [facility] Metabolic Panel (NA, K, CL, CO2, Glucose, BUN, Creatinine, CA) - Code Srxnpe6681-07-44 03:03:47* Test Item Value Reference Range Interpretation Comme [facility] NA (test code = 7305507741) 135 mmol/L 135-145 K (test code = 3960888116) 4.3 mmol/L 3.5-5.0 CL (test code = 3241576604) 103 mmol/L 98-108 CO2 TOTAL (test code = 8958836243) 28 mmol/L 23-31 AGAP (test code = 2275179793) 4 2-16 BUN (test code = 4244279560) 11 mg/dL 7-23 GLUCOSE (test code = 9081226595) 120 mg/dL 70-110 H CREATININE (test code = 2160-0) 0.71 mg/dL 0.50-1.04 CALCIUM (test code = 2200408837) 9.3 mg/dL 8.6-10.6 eGFR (test code = 39013-2) 107.0 mL/min/1.73m2 CKD-EPI eGFR (2020). Assuming creatinine has been stable day-to-day for at least three months, the eGFR indicates Category G1 (>= 90 mL/min/1.73 m2) Lab Interpretation (test code = 25353-7) Abnormal [facility] Metabolic Panel (NA, K, CL, CO2, Glucose, BUN, Creatinine, CA) - Code Famyqe4400-38-98 03:03:47* Test Item Value Reference Range Interpretation Comme nts NA (test code = 1860463981) 135 mmol/L 135-145 K (test code = 5523443265) 4.3 mmol/L 3.5-5.0 CL (test code = 0137726595) 103 mmol/L 98-108 CO2 TOTAL (test code = 4312611258) 28 mmol/L 23-31 AGAP (test code = 9783946905) 4 2-16 BUN (test code = 6875386059) 11 mg/dL 7-23 GLUCOSE (test code = 0041200585) 120 mg/dL 70-110 H CREATININE (test code = 2160-0) 0.71 mg/dL 0.50-1.04 CALCIUM (test code = 0891169177) 9.3 mg/dL 8.6-10.6 eGFR (test code = 61390-3) 107.0 mL/min/1.73m2 CKD-EPI eGFR (2020). Assuming creatinine has been stable day-to-day for at least three months, the eGFR indicates Category G1 (>= 90 mL/min/1.73 m2) Lab Interpretation (test code = 73361-7) Abnormal [facility] Metabolic Panel (NA, K, CL, CO2, Glucose, BUN, Creatinine, CA) - Code Adwfyd1395-63-14 03:03:47* Test Item Value Reference Range Interpretation Comme nts NA (test code = 6487892791) 135 mmol/L 135-145 K (test code = 0354477831) 4.3 mmol/L 3.5-5.0 CL (test code = 1181962409) 103 mmol/L 98-108 CO2 TOTAL (test code = 0517750727) 28 mmol/L 23-31 AGAP (test code = 8891796130) 4 2-16 BUN (test code = 5891749491) 11 mg/dL 7-23 GLUCOSE (test code = 4412874636) 120 mg/dL 70-110 H CREATININE (test code = 2160-0) 0.71 mg/dL 0.50-1.04 CALCIUM (test code = 7790373145) 9.3 mg/dL 8.6-10.6 eGFR (test code = 38658-6) 107.0 mL/min/1.73m2 CKD-EPI eGFR (2020). Assuming creatinine has been stable day-to-day for at least three months, the eGFR indicates Category G1 (>= 90 mL/min/1.73 m2) Lab Interpretation (test code = 64423-8) Abnormal [facility] Metabolic Panel (NA, K, CL, CO2, Glucose, BUN, Creatinine, CA) - Code Uesmqc6631-67-64 03:03:47* Test Item Value Reference Range Interpretation Comme nts NA (test code = 1319792395) 135 mmol/L 135-145 K (test code = 1403124823) 4.3 mmol/L 3.5-5.0 CL (test code = 4810715967) 103 mmol/L 98-108 CO2 TOTAL (test code = 1796651610) 28 mmol/L 23-31 AGAP (test code = 1687211188) 4 2-16 BUN (test code = 6294657016) 11 mg/dL 7-23 GLUCOSE (test code = 1617298533) 120 mg/dL 70-110 H CREATININE (test code = 2160-0) 0.71 mg/dL 0.50-1.04 CALCIUM (test code = 5156018540) 9.3 mg/dL 8.6-10.6 eGFR (test code = 26552-4) 107.0 mL/min/1.73m2 CKD-EPI eGFR (2020). Assuming creatinine has been stable day-to-day for at least three months, the eGFR indicates Category G1 (>= 90 mL/min/1.73 m2) Lab Interpretation (test code = 01798-2) Abnormal [facility] Metabolic Panel (NA, K, CL, CO2, Glucose, BUN, Creatinine, CA) - Code Pzacsh7743-74-64 03:03:47* Test Item Value Reference Range Interpretation Comme nts NA (test code = 8310650781) 135 mmol/L 135-145 K (test code = 0324631606) 4.3 mmol/L 3.5-5.0 CL (test code = 5503938503) 103 mmol/L 98-108 CO2 TOTAL (test code = 2210230501) 28 mmol/L 23-31 AGAP (test code = 4217076120) 4 2-16 BUN (test code = 0887458347) 11 mg/dL 7-23 GLUCOSE (test code = 1861301419) 120 mg/dL 70-110 H CREATININE (test code = 2160-0) 0.71 mg/dL 0.50-1.04 CALCIUM (test code = 0236252518) 9.3 mg/dL 8.6-10.6 eGFR (test code = 45757-5) 107.0 mL/min/1.73m2 CKD-EPI eGFR (2020). Assuming creatinine has been stable day-to-day for at least three months, the eGFR indicates Category G1 (>= 90 mL/min/1.73 m2) Lab Interpretation (test code = 89792-6) Abnormal [facility] Metabolic Panel (NA, K, CL, CO2, Glucose, BUN, Creatinine, CA) - Code Otpdjw5787-84-94 03:03:47* Test Item Value Reference Range Interpretation Comme nts NA (test code = 8237754133) 135 mmol/L 135-145 K (test code = 6561179913) 4.3 mmol/L 3.5-5.0 CL (test code = 2522564958) 103 mmol/L 98-108 CO2 TOTAL (test code = 9580494623) 28 mmol/L 23-31 AGAP (test code = 9261029203) 4 2-16 BUN (test code = 5304234367) 11 mg/dL 7-23 GLUCOSE (test code = 8694606580) 120 mg/dL 70-110 H CREATININE (test code = 2160-0) 0.71 mg/dL 0.50-1.04 CALCIUM (test code = 6364300298) 9.3 mg/dL 8.6-10.6 eGFR (test code = 17777-0) 107.0 mL/min/1.73m2 CKD-EPI eGFR (2020). Assuming creatinine has been stable day-to-day for at least three months, the eGFR indicates Category G1 (>= 90 mL/min/1.73 m2) Lab Interpretation (test code = 68371-6) Abnormal [facility] Metabolic Panel (NA, K, CL, CO2, Glucose, BUN, Creatinine, CA) - Code Dvbowz5204-79-61 03:03:47* Test Item Value Reference Range Interpretation Comme nts NA (test code = 6840598992) 135 mmol/L 135-145 K (test code = 8575908169) 4.3 mmol/L 3.5-5.0 CL (test code = 6718050623) 103 mmol/L 98-108 CO2 TOTAL (test code = 2022285962) 28 mmol/L 23-31 AGAP (test code = 5793810752) 4 2-16 BUN (test code = 1362702466) 11 mg/dL 7-23 GLUCOSE (test code = 9489723406) 120 mg/dL 70-110 H CREATININE (test code = 2160-0) 0.71 mg/dL 0.50-1.04 CALCIUM (test code = 7165535084) 9.3 mg/dL 8.6-10.6 eGFR (test code = 07310-4) 107.0 mL/min/1.73m2 CKD-EPI eGFR (2020). Assuming creatinine has been stable day-to-day for at least three months, the eGFR indicates Category G1 (>= 90 mL/min/1.73 m2) Lab Interpretation (test code = 48991-2) Abnormal [facility] Metabolic Panel (NA, K, CL, CO2, Glucose, BUN, Creatinine, CA) - Code Kxeatb4882-91-21 03:03:47* Test Item Value Reference Range Interpretation Comme nts NA (test code = 7398426060) 135 mmol/L 135-145 K (test code = 3427239659) 4.3 mmol/L 3.5-5.0 CL (test code = 4914479456) 103 mmol/L 98-108 CO2 TOTAL (test code = 3833590946) 28 mmol/L 23-31 AGAP (test code = 1470934982) 4 2-16 BUN (test code = 1995135845) 11 mg/dL 7-23 GLUCOSE (test code = 0043659614) 120 mg/dL 70-110 H CREATININE (test code = 2160-0) 0.71 mg/dL 0.50-1.04 CALCIUM (test code = 4248903842) 9.3 mg/dL 8.6-10.6 eGFR (test code = 82251-3) 107.0 mL/min/1.73m2 CKD-EPI eGFR (2020). Assuming creatinine has been stable day-to-day for at least three months, the eGFR indicates Category G1 (>= 90 mL/min/1.73 m2) Lab Interpretation (test code = 98204-3) Abnormal [facility] Metabolic Panel (NA, K, CL, CO2, Glucose, BUN, Creatinine, CA) - Code Qfrttr3390-28-62 03:03:47* Test Item Value Reference Range Interpretation Comme [facility] NA (test code = 0728298642) 135 mmol/L 135-145 K (test code = 5904570389) 4.3 mmol/L 3.5-5.0 CL (test code = 7058243005) 103 mmol/L 98-108 CO2 TOTAL (test code = 7226125413) 28 mmol/L 23-31 AGAP (test code = 5490911390) 4 2-16 BUN (test code = 8822442977) 11 mg/dL 7-23 GLUCOSE (test code = 4656557055) 120 mg/dL 70-110 H CREATININE (test code = 2160-0) 0.71 mg/dL 0.50-1.04 CALCIUM (test code = 9091964196) 9.3 mg/dL 8.6-10.6 eGFR (test code = 03888-6) 107.0 mL/min/1.73m2 CKD-EPI eGFR (2020). Assuming creatinine has been stable day-to-day for at least three months, the eGFR indicates Category G1 (>= 90 mL/min/1.73 m2) Lab Interpretation (test code = 79504-0) [facility] - Code Eafiei0028-13-78 03:00:48* Test Item Value Reference Range Interpretation Comme [facility] PROTIME PATIENT (test code = 5964-2) 10.4 10.1-12.6 INR (test code = 6301-6) 0.9 Normal INR <1.1; Warfarin Therapeutic range 2.0 to 3.0 or 2.5 to 3.5, depending upon the indications. Lab Interpretation (test code = 16471-1) [facility] - Code Thjpja4997-33-21 03:00:48* Test Item Value Reference Range Interpretation Comme nts PROTIME PATIENT (test code = 5964-2) 10.4 10.1-12.6 INR (test code = 6301-6) 0.9 Normal INR <1.1; Warfarin Therapeutic range 2.0 to 3.0 or 2.5 to 3.5, depending upon the indications. Lab Interpretation (test code = 52892-7) [facility] Pxgpan0474-38-43 03:00:48* Test Item Value Reference Range Interpretation Comme nts PROTIME PATIENT (test code = 5964-2) 10.4 10.1-12.6 INR (test code = 6301-6) 0.9 Normal INR <1.1; Warfarin Therapeutic range 2.0 to 3.0 or 2.5 to 3.5, depending upon the indications. Lab Interpretation (test code = 15689-7) [facility] - Code Agnhli1631-73-28 03:00:48* Test Item Value Reference Range Interpretation Comme nts PROTIME PATIENT (test code = 5964-2) 10.4 10.1-12.6 INR (test code = 6301-6) 0.9 Normal INR <1.1; Warfarin Therapeutic range 2.0 to 3.0 or 2.5 to 3.5, depending upon the indications. Lab Interpretation (test code = 78083-0) [facility] - Code Hgnbog0782-44-62 03:00:48* Test Item Value Reference Range Interpretation Comme nts PROTIME PATIENT (test code = 5964-2) 10.4 10.1-12.6 INR (test code = 6301-6) 0.9 Normal INR <1.1; Warfarin Therapeutic range 2.0 to 3.0 or 2.5 to 3.5, depending upon the indications. Lab Interpretation (test code = 19950-1) [facility] - Code Beofvt2799-53-73 03:00:48* Test Item Value Reference Range Interpretation Comme nts PROTIME PATIENT (test code = 5964-2) 10.4 10.1-12.6 INR (test code = 6301-6) 0.9 Normal INR <1.1; Warfarin Therapeutic range 2.0 to 3.0 or 2.5 to 3.5, depending upon the indications. Lab Interpretation (test code = 47756-8) [facility] - Code Hnltpa1838-71-84 03:00:48* Test Item Value Reference Range Interpretation Comme nts PROTIME PATIENT (test code = 5964-2) 10.4 10.1-12.6 INR (test code = 6301-6) 0.9 Normal INR <1.1; Warfarin Therapeutic range 2.0 to 3.0 or 2.5 to 3.5, depending upon the indications. Lab Interpretation (test code = 61272-9) [facility] - Code Jmhmjk3043-66-31 03:00:48* Test Item Value Reference Range Interpretation Comme nts PROTIME PATIENT (test code = 5964-2) 10.4 10.1-12.6 INR (test code = 6301-6) 0.9 Normal INR <1.1; Warfarin Therapeutic range 2.0 to 3.0 or 2.5 to 3.5, depending upon the indications. Lab Interpretation (test code = 30715-6) [facility] - Code Tfrqag6291-98-25 03:00:48* Test Item Value Reference Range Interpretation Comme nts PROTIME PATIENT (test code = 5964-2) 10.4 10.1-12.6 INR (test code = 6301-6) 0.9 Normal INR <1.1; Warfarin Therapeutic range 2.0 to 3.0 or 2.5 to 3.5, depending upon the indications. Lab Interpretation (test code = 46448-2) [facility] - Code Vhkgsk1562-70-28 03:00:47* Test Item Value Reference Range Interpretation Comme nts APTT Patient (test code = 3173-2) Lab Interpretation (test cod e = 57529-6) [facility] Code Vqajka8276-14-80 03:00:47* Test Item Value Reference Range Interpretation Comme nts APTT Patient (test code = 3173-2) 36 Lab Interpretation (test cod e = 97707-3) Normal [facility] - Code Hrzvli2876-53-77 03:00:47* Test Item Value Reference Range Interpretation Comme nts APTT Patient (test code = 3173-2) 29 -36 Lab Interpretation (test cod e = 13881-9) Normal [facility] - Code Iuhyct3207-31-57 03:00:47* Test Item Value Reference Range Interpretation Comme nts APTT Patient (test code = 3173-2) -36 Lab Interpretation (test cod e = 50566-3) [facility] Iqtmhg6442-34-93 03:00:47* Test Item Value Reference Range Interpretation Comme nts APTT Patient (test code = 3173-2) -36 Lab Interpretation (test cod e = 71165-1) Normal [facility] - Code Gcgrsl7315-89-12 03:00:47* Test Item Value Reference Range Interpretation Comme nts APTT Patient (test code = 3173-2) -36 Lab Interpretation (test cod e = 74386-7) [facility] Ptrelp5096-44-45 03:00:47* Test Item Value Reference Range Interpretation Comme nts APTT Patient (test code = 3173-2) -36 Lab Interpretation (test cod e = 54803-5) [facility] Padwks1987-43-87 03:00:47* Test Item Value Reference Range Interpretation Comme nts APTT Patient (test code = 3173-2) -36 Lab Interpretation (test cod e = 23325-9) [facility] Gugqfy0497-64-20 03:00:47* Test Item Value Reference Range Interpretation Comme nts APTT Patient (test code = 3173-2) -36 Lab Interpretation (test cod e = 07348-8) Normal [facility] without Diff - Code Dgsrpn1332-68-68 02:52:09* Test Item Value Reference Range Interpretation [...] 367 166-358 H MPV (test code = 38344-8) 11.3 fL 9.5-12.9 RDW-CV (test code = 788-0) 15.4 % 12.0-15.5 RDW-SD (test code = 87683-7) 43.8 fL 39.0-49.9 NRBC x10^3 (test code = 3683175424) See_Comment [Automated [employer] ge] The system which generated this result transmitted reference range: 10*3/?L. The reference range was not used to interpret this result as normal/abnormal. NRBC/100 WBC (test code = 6476821791) 0.0 0.0-10.0 IPF % (test code = 3043668622) Lab Interpretation (test code = 11666-2) Abnormal [facility] without Diff - Code Nplvdj9879-66-36 02:52:09* Test Item Value Reference Range Interpretation [...] 367 166-358 H MPV (test code = 87689-6) 11.3 fL 9.5-12.9 RDW-CV (test code = 788-0) 15.4 % 12.0-15.5 RDW-SD (test code = 76504-5) 43.8 fL 39.0-49.9 NRBC x10^3 (test code = 7316482316) See_Comment [Automated [employer]] The system which generated this result transmitted reference range: 10*3/?L. The reference range was not used to interpret this result as normal/abnormal. NRBC/100 WBC (test code = 6515412387) 0.0 0.0-10.0 IPF % (test code = 9068354165) Lab Interpretation (test code = 62739-6) Abnormal [facility] without Diff - Code Voyzyi5999-43-36 02:52:09* Test Item Value Reference Range Interpretation [...] 367 166-358 H MPV (test code = 08804-4) 11.3 fL 9.5-12.9 RDW-CV (test code = 788-0) 15.4 % 12.0-15.5 RDW-SD (test code = 88162-0) 43.8 fL 39.0-49.9 NRBC x10^3 (test code = 7250992503) See_Comment [Automated [employer] ge] The system which generated this result transmitted reference range: 10*3/?L. The reference range was not used to interpret this result as normal/abnormal. NRBC/100 WBC (test code = 8659674898) 0.0 0.0-10.0 IPF % (test code = 2397498958) Lab Interpretation (test code = 81383-2) Abnormal [facility] without Diff - Code Zcsexj6997-86-56 02:52:09* Test Item Value Reference Range Interpretation [...] 367 166-358 H MPV (test code = 71293-5) 11.3 fL 9.5-12.9 RDW-CV (test code = 788-0) 15.4 % 12.0-15.5 RDW-SD (test code = 74527-6) 43.8 fL 39.0-49.9 NRBC x10^3 (test code = 5074707544) See_Comment [Automated messa ge] The system which generated this result transmitted reference range: 10*3/?L. The reference range was not used to interpret this result as normal/abnormal. NRBC/100 WBC (test code = 4356690836) 0.0 0.0-10.0 IPF % (test code = 5375671460) Lab Interpretation (test code = 32537-3) Abnormal [facility] without Diff - Code Gsknps4255-14-89 02:52:09* Test Item Value Reference Range Interpretation [...] 367 166-358 H MPV (test code = 49481-0) 11.3 fL 9.5-12.9 RDW-CV (test code = 788-0) 15.4 % 12.0-15.5 RDW-SD (test code = 02660-0) 43.8 fL 39.0-49.9 NRBC x10^3 (test code = 7058679563) See_Comment [Automated messa ge] The system which generated this result transmitted reference range: 10*3/?L. The reference range was not used to interpret this result as normal/abnormal. NRBC/100 WBC (test code = 0000620083) 0.0 0.0-10.0 IPF % (test code = 9103112033) Lab Interpretation (test code = 21787-9) Abnormal [facility] without Diff - Code Ilytxl0004-29-34 02:52:09* Test Item Value Reference Range Interpretation [...] 367 166-358 H MPV (test code = 14526-7) 11.3 fL 9.5-12.9 RDW-CV (test code = 788-0) 15.4 % 12.0-15.5 RDW-SD (test code = 83685-8) 43.8 fL 39.0-49.9 NRBC x10^3 (test code = 1713818808) See_Comment [Automated [employer] ge] The system which generated this result transmitted reference range: 10*3/?L. The reference range was not used to interpret this result as normal/abnormal. NRBC/100 WBC (test code = 8295392475) 0.0 0.0-10.0 IPF % (test code = 9786860651) Lab Interpretation (test code = 45197-0) Abnormal [facility] without Diff - Code Vjpphj9567-64-97 02:52:09* Test Item Value Reference Range Interpretation [...] 367 166-358 H MPV (test code = 05763-6) 11.3 fL 9.5-12.9 RDW-CV (test code = 788-0) 15.4 % 12.0-15.5 RDW-SD (test code = 20486-9) 43.8 fL 39.0-49.9 NRBC x10^3 (test code = 8203550649) See_Comment [Automated [employer] ge] The system which generated this result transmitted reference range: 10*3/?L. The reference range was not used to interpret this result as normal/abnormal. NRBC/100 WBC (test code = 3171346122) 0.0 0.0-10.0 IPF % (test code = 3859419491) Lab Interpretation (test code = 75311-2) Abnormal [facility] without Diff - Code Imwour9402-31-32 02:52:09* Test Item Value Reference Range Interpretation [...] 367 166-358 H MPV (test code = 62066-9) 11.3 fL 9.5-12.9 RDW-CV (test code = 788-0) 15.4 % 12.0-15.5 RDW-SD (test code = 53448-1) 43.8 fL 39.0-49.9 NRBC x10^3 (test code = 4015036832) See_Comment [Automated [employer] ge] The system which generated this result transmitted reference range: 10*3/?L. The reference range was not used to interpret this result as normal/abnormal. NRBC/100 WBC (test code = 9865392669) 0.0 0.0-10.0 IPF % (test code = 0943613891) Lab Interpretation (test code = 33432-2) Abnormal [facility] without Diff - Code Wllyhi9122-54-45 02:52:09* Test Item Value Reference Range Interpretation [...] 367 166-358 H MPV (test code = 42318-5) 11.3 fL 9.5-12.9 RDW-CV (test code = 788-0) 15.4 % 12.0-15.5 RDW-SD (test code = 50262-6) 43.8 fL 39.0-49.9 NRBC x10^3 (test code = 4096163925) See_Comment [Automated messa ge] The system which generated this result transmitted reference range: 10*3/?L. The reference range was not used to interpret this result as normal/abnormal. NRBC/100 WBC (test code = 0494409459) 0.0 0.0-10.0 IPF % (test code = 3711328743) Lab Interpretation (test code = 02431-0) Abnormal [facility] Glucose (Age >30 Days) - Code Stroke 2023-06-08 02:39:00* Test Item Value Reference Range Interpretation Comme nts POCT Glu (age>30days) (test code = 3342) 124 mg/dL 70-110 A Lab Interpretation (test cod e = 78052-0) Abnormal [facility] Glucose (Age >30 Days) - Code Stroke 2023-06-08 02:39:00* Test Item Value Reference Range Interpretation Comme nts POCT Glu (age>30days) (test code = 3342) 124 mg/dL 70-110 A Lab Interpretation (test cod e = 62192-4) Abnormal [facility] Glucose (Age >30 Days) - Code Stroke 2023-06-08 02:39:00* Test Item Value Reference Range Interpretation Comme nts POCT Glu (age>30days) (test code = 3342) 124 mg/dL 70-110 A Lab Interpretation (test cod e = 01329-5) [facility] >30 Days[facility] Stroke 2023-06-08 02:39:00* Test Item Value Reference Range Interpretation Comme nts POCT Glu (age>30days) (test code = 3342) 124 mg/dL 70-110 A Lab Interpretation (test cod e = 34815-0) [facility] >30 Days[facility] - Code Stroke 2023-06-08 02:39:00* Test Item Value Reference Range Interpretation Comme nts POCT Glu (age>30days) (test code = 3342) 124 mg/dL 70-110 A Lab Interpretation (test cod e = 14546-2) [facility]Age >30 Days[facility] - Code Stroke 2023-06-08 02:39:00* Test Item Value Reference Range Interpretation Comme nts POCT Glu (age>30days) (test code = 3342) 124 mg/dL 70-110 A Lab Interpretation (test cod e = 76325-5) [facility] >30 Days[facility] - Code Stroke 2023-06-08 02:39:00* Test Item Value Reference Range Interpretation Comme nts POCT Glu (age>30days) (test code = 3342) 124 mg/dL 70-110 A Lab Interpretation (test cod e = 42011-0) [facility] (Age >30 Days) - Code Stroke 2023-06-08 02:39:00* Test Item Value Reference Range Interpretation Comme nts POCT Glu (age>30days) (test code = 3342) 124 mg/dL 70-110 A Lab Interpretation (test cod e = 30383-7) [facility] (Age >30 Days) - Code Stroke 2023-06-08 02:39:00* Test Item Value Reference Range Interpretation Comme nts POCT Glu (age>30days) (test code = 3342) 124 mg/dL 70-110 A Lab Interpretation (test cod e = 21810-1) [facility] Pzrza4944-30-34 19:59:01* Test Item Value Reference Range Interpretation Comme nts FERRITIN (test code = 0155474623) 22.4 ng/mL 6.0-137.0 ZAINAB (test code = ZAINAB) Biotin has been reported to cause a negative bias, interpret results relative to patient's use of biotin. Lab Interpretation (test code = 63305-3) [facility] Cnpkm0090-71-92 19:59:01* Test Item Value Reference Range Interpretation Comme nts FERRITIN (test code = 9305467886) 22.4 ng/mL 6.0-137.0 ZAINAB (test code = ZAINAB) Biotin has been reported to cause a negative bias, interpret results relative to patient's use of biotin. Lab Interpretation (test code = 82541-9) [facility] Tjaes4430-74-81 19:59:01* Test Item Value Reference Range Interpretation Comme nts FERRITIN (test code = 6895926018) 22.4 ng/mL 6.0-137.0 ZAINAB (test code = ZAINAB) Biotin has been reported to cause a negative bias, interpret results relative to patient's use of biotin. Lab Interpretation (test code = 92941-6) [facility]2024-01-04 19:59:01* Test Item Value Reference Range Interpretation Comme nts FERRITIN (test code = 9647307520) 22.4 ng/mL 6.0-137.0 ZAINAB (test code = ZAINAB) Biotin has been reported to cause a negative bias, interpret results relative to patient's use of biotin. Lab Interpretation (test code = 65988-6) [facility] Mamof1433-11-56 19:59:01* Test Item Value Reference Range Interpretation Comme nts FERRITIN (test code = 1336625771) 22.4 ng/mL 6.0-137.0 ZAINAB (test code = ZAINAB) Biotin has been reported to cause a negative bias, interpret results relative to patient's use of biotin. Lab Interpretation (test code = 93095-8) [facility] Vejgo0391-73-20 19:59:01* Test Item Value Reference Range Interpretation Comme nts FERRITIN (test code = 1651362533) 22.4 ng/mL 6.0-137.0 ZAINAB (test code = ZAINAB) Biotin has been reported to cause a negative bias, interpret results relative to patient's use of biotin. Lab Interpretation (test code = 30191-6) Normal [facility] Nhlmg6659-51-99 19:30:52* Test Item Value Reference Range Interpretation Comme nts IRON (test code = 1426853157) 54 ug/dL 50-160 TIBC (test code = 8586727541) 434 ug/dL 250-410 H % FE SAT (test code = 1078708071) 12 % 20-50 L Lab Interpretation (test cod e = 69470-1) Abnormal [facility]2024-01-04 19:30:52* Test Item Value Reference Range Interpretation Comme nts IRON (test code = 5783423568) 54 ug/dL 50-160 TIBC (test code = 8798261989) 434 ug/dL 250-410 H % FE SAT (test code = 2738954944) 12 % 20-50 L Lab Interpretation (test cod e = 48913-3) Abnormal [facility] Zqdlo7313-53-89 19:30:52* Test Item Value Reference Range Interpretation Comme nts IRON (test code = 6855070391) 54 ug/dL 50-160 TIBC (test code = 5675002020) 434 ug/dL 250-410 H % FE SAT (test code = 8998960395) 12 % 20-50 L Lab Interpretation (test cod e = 02175-5) Abnormal [facility] Gmece3148-92-29 19:30:52* Test Item Value Reference Range Interpretation Comme nts IRON (test code = 1049006083) 54 ug/dL 50-160 TIBC (test code = 5450701313) 434 ug/dL 250-410 H % FE SAT (test code = 1394592550) 12 % 20-50 L Lab Interpretation (test cod e = 59914-4) Abnormal [facility] Wgndu7705-59-44 19:30:52* Test Item Value Reference Range Interpretation Comme nts IRON (test code = 8445127296) 54 ug/dL 50-160 TIBC (test code = 9442451450) 434 ug/dL 250-410 H % FE SAT (test code = 2298803302) 12 % 20-50 L Lab Interpretation (test cod e = 87032-9) Abnormal [facility]2024-01-04 19:30:52* Test Item Value Reference Range Interpretation Comme nts IRON (test code = 4039944834) 54 ug/dL 50-160 TIBC (test code = 9579864964) 434 ug/dL 250-410 H % FE SAT (test code = 6735490649) 12 % 20-50 L Lab Interpretation (test cod e = 26261-1) Abnormal [facility]2023-12-11 20:01:05* Test Item Value Reference Range Interpretation Comme nts [place] (test code = 9533830114) 0.5 mmol/L 0.6-1.2 L ZAINAB (test code = ZAINAB) Toxic Range: ? Greater than 1.2 mmol/L Lab Interpretation (test code = 81250-4) Abnormal [facility]2023-12-11 20:01:05* Test Item Value Reference Range Interpretation Comme nts [place] (test code = 8290848240) 0.5 mmol/L 0.6-1.2 L ZAINAB (test code = ZAINAB) Toxic Range: ? Greater than 1.2 mmol/L Lab Interpretation (test code = 68186-1) Abnormal [facility]2023-12-11 20:01:05* Test Item Value Reference Range Interpretation Comme nts [place] (test code = 7004285294) 0.5 mmol/L 0.6-1.2 L ZAINAB (test code = ZAINAB) Toxic Range: ? Greater than 1.2 mmol/L Lab Interpretation (test code = 06445-8) [facility] YXFQ2447-12-02 19:23:05* Test Item Value Reference Range Interpretation Comme nts Case Report (test code = 1204599633) Surgical Pathology ?Case: [id number] ? Authorizing Provider: ?Domniic Keita MD ? ? ?Collected: ? 11/13/2022 0805 ?Ordering Location: ? ? GI Endoscopy OR Department Received: ?11/13/2022 1016 ?Pathologist: ? Billy Diaz, PhD ?Specimens: ? A) - STOMACH, Gastric polyp x6 r/o adenoma ? B) - DUODENUM, Duodenal Bx, r/o Celiac disease and reasons for anemia ? C) - STOMACH, Gastric Bx r/o HPylori ? Final Diagnosis (test code = 6394982732) z2iagKPvJPSap6mkXRGpuZ FuZzEwMzNcZnRuYmpcdWMx ZTrozjZaCXtztRydWVZ4NO HmSL7erSotrPf1qBqtERTq fhY8oQCdTGpfj2abZJW5y5 bbfzpfHQImQJckCm3piUNp jEgzQgFhGETbNTi3yE77HY QeyW7ngMTqVIa2ERJkkQBe lxEiMkIbAONypDAkhVO9RR ZaHH7xdcdbEYzpEUdmGCHu xeU7QHUwmKRlL2XqHEBfMJ 8uckzqNFO6BWnaBJVdBMU8 DhBcMNPdn1Bmmwd4JtWbxF FyZFxwbGFpblxmczIwXHBh dhXNPyKWTQ4DAULWEKILO4 eSDWLWHV2JBLXTWokqzIOg OHDeWEZnEMVYSX4MTQFxM8 aAQpShWT7DQEIzPZAvbOWl GTZnrrFAHnZVLR3KDE7QLI wgQklPUFNZOlxwYXIgICAg ONBlTEhVM4QFOXDmFLIUZ1 YGVMyFADpjDy2iKFYTPF7M G7aED2GYMVXGKR0HDNdiWS PbCNBuVWBoHB5WUHzzBZXO LZ4DSFNBZRDVIPkWYCFTEO OJAVjDEFDGK4CAJUrRUSTg oxexRJRjCp2yU1JHYAHXSJ wgQklPUFNZOlxwYXIgICAg NAPvSQWLQ7IFUjWIDT6KW2 2QWVRRBXPHKY3HVNQWOZkY JU5QOLNBIPFRMJTGA5YuuQ FyICAgICAgLSBOTyBFVklE ED8VLDJQKrRFOQxIJBIkME lTRUFTRVxwYXIgICAgICAt MB5JZYvmRQTMNY8QRATZDt dBTklTTVMgSURFTlRJRklF XWLNQJLVOR7TLv1KCJDQBu xwYXJccGFyfXtccnRmMVxz f6ZjT7DzUlVyHEigrjGhEL MdRywjxzipQBUxSMF3mlOe RKWxBLytDZOjFQfvYu6gaN KwpXczSaWyLNHff8vwolNW KXcqBnDhK176IFOlHSrdl9 odx0VkZOXlfHHzv6S0OULX wqytkCb5s6feJdNvJpU9xN RhGDhjB0bbrnBjsJTdX7Fi yBDrmBh1lPxcV53yh7N4Gd uhP9htMKBlKDXyP5JhJV0w UDAxUim9WWU4DHN3JQFiCO VgA3AwQN6lXWTzvUWcQWt9 x2jziRtxXFXeILD1p7mtPW iqexT8YQ6trv9agFq5i2cj czEgRGVmYXVsdCBQYXJhZ3 DjxZsxUm9qxPk1jBjaNygg DGO9Oqt7GI6qrs97dmq6nR kpSALcvqksUrN7GWwtKSNu exfrWNt0PFdtAGPtzKJ4KW GvrFHrD2HmGWHmVB1nguw7 NMN3FCxeEQEvWhL6KJOfaP ZgRFIwhLbvPSvmp027RXO4 TaLoUO5eY3Ecp4O2rS3hbN BzIHEraOWxTuMjTGUmjn0p hPQlSFbwf4JnNHO6zbS9fJ IcaSYrMQVdTQ63Tpdpz2Av DiguNOR0LFYbohYpa6Fet7 ytGtAhniPrT6jeI3WhRFUe CQXuSSVwEpUhnpXnk9Eqb5 MgiITnnDp4c3blAFPrNEGs rInlk9vzXQZ0VZJbS2X5aT Mfk6ifLSpsXLUweWP6akJ2 RTGohELaP7HwzM8vGVOlIK 9blew6m7bqECJ9VYipGRQk RiG4hpU1ULLxxQDwUNIpsK ypFByku428NOE0VbPwUMPu m1PeN7QlhFosQ61dlKzuX5 9jCAWunPdkeV0ugSntzS3i ZjBcZnMyNFxxbFxwbGFpbl xmMVxmczIwXGxhbmcxMDMz QWkhM1wsTgCuRONjpLclXB csn4EzWLIlMBNtKddizoOm XHBhciBJIGhhdmUgcGVyc2 9uYWxseSByZXZpZXdlZCBh xEkqv6SaD0fjQL8nC7HyxQ NtscWgfkHzJXnfVBTpr5u7 cBQkaEwno0QaxUBaGP33uv VzJTDgGXB9WBGwy8mrMX42 rnsuSvDaxR54kmTgcgEaFC Ieb2kqE8irnOBss0Xms5Gv qjBfZAfqm8OaSS4zhICrit xugBU6IVVmeVQkgrSdhuA6 bTrkMBIreH8brO5yzCciuM 6eNeYrEyMdDQrvME0qFKEq B4ldxUHeBSJwMZRpQ0nnRy RyfL6gvExrRspzpcF1FCWy cn19 Clinical Information (test code = 8720324744) Shivani Schuler is a 47 year old female with IDA1. Gastric polyp x 6 r/o adenoma2.Duodenal Bx, r/o Celiac disease 3. Gastric Bx r/o HPylori Gross Description (test code = 6533625688) w7nflQAfTLCcpFPZSKP7BR LfNY3puPwjoDc5bHieOVSg whO7uCWtHVlya9dsUZF8i1 ulrlEKRlffGJUpXP8dHGux OKHgZW9uBzSbGBGdAcOdGH BhcGVydzEyMjQwXHBhcGVy fDE0FUYdRD9mlhuqJXetLD qkFEIspgJ0EGVzmVEtR3Sf PXRxUQ0nfysnAPN6VLDHZo yjEd8qtRPciPihMkOwKkKg YXJzZXQwXGZuaWwgQXJpYW m1dE4SLvdfMOV1BLOQNjgr HfirhHmck5EveONvBOTaRP xcaWQgNTEwMDAgXFxkYiBP TsFjPwR0Tev0UUJ2AdD2GN c4PRROMWExBeoyHZA7NpX2 RRz3GWIjFC6sNEvtmYAaZO mpJjehLRxxR949ULtqTKRu A6DwN8ZdJVawMuAsVDimYK YaLNOcVKvkAPIcQ1KHEBAh AKZ3GeQpFRMfDSy9DHsjF9 LEEDJmKIEyEyF6ASYrDvM5 JXu3BRBPHl0gHAtoJeSeKZ e3QQN9RMb7LgApZVPhLxVg DEZiAYChRWtrwREgZC0wfI qvTWXsCS6LJJEeMMnzCEYs LdBzZ1HBQ6bUUC3tXLjoxB JjaFxmczIyXHBhciANClxw ONYmFE8GWOKvOPjnLIq7hh RyNMJpAjCjWZUjK22se2UF n9JxVU8SUQn4leTgxmlzhN 9mLSHhdoXnOOtMsFNtjJ3g xaOLHUjjBWGyE9FesyFcWX ygRFPypr7kjQdxLAzfQiLx bGVkIHdpdGggdGhlIHBhdG sgytUhC2X0bdLpHU2vNPSP UIOvzH5bXCEeFNOjv2XpaG NeeHqqA2UbtYTaIdHoj2k0 gCX3CPRvxoMnKQEiqYRfKB Rslh2yOOlzXmQoM2P9DEKi YDWbf93rzDR7llHfNnPwdS m4wAXcFRZ8XZ9adRiylqLb a4b8nE6cNYCec1A9TIAgz9 Z9TBTaqgEjmUPfaYAhRYIv CY0vadBlVD56ZDOsHDabZN nvBHI8MEO7SSPzaSLpn9ar cispJc7aKHbnOH9zSYzjTM 80TFBgAUkvATBzP6EtF1X0 KAgaAHCqYUBtiRAnnS0nhk ZmaeMivZu9OBYiKUV0bENz hDgtGIUhZifjzTJ6ESNxDo TkbpVwh4TyqCg1mHVtLMxv HPVamP5mxM3oZFGlUPIoly VYCulbCHUkCCphn2FzYMee cGljWHNhMzAgDQpcZXBpY0 1du2AAl9Bqk4gvvEgts7Gl wQEjZZ4vzDBdVX4Tf3uaZF IczLVdTZD0UFmlf8pzXNcl BXB7TAWeGuOvIQYuVD1RWj HaTGqaNZx4TNcaMPu3GGi3 FR6FYzLiDMZjRde2RyU5Ai OkHAi1PKaoPW7GGBH9CVAm JJMpKDnlVZL2ULIvWAh0PQ IgXFxzcyAzIFxcZmwgXFxu J48nrTCiYGvpTpXdXHjidL ttVQMuWSC5QT1NOLBmRzXa S1OSS7tNKQ9xYcjcqmOuMZ StkzHWJwleATCgFY3KFLWt AUcdUCr8arEzNHXiTgCxRY EoQ87uo5QXe8NqYD7UOTl7 piMprjkjtU5lIXFkhoSzx4 IzMFxlcGljWHNiMzAgDQpT kGMonF1egyRNHAzgTNDmP3 BiabSzYHkxHAInad1ahQuv IGxhYmVsbGVkIHdpdGggdG ajBOBryEqbghSpF0N3snDl WK9dVOPAMXNevU8yZAZhHL QoHDQmZKMhgM7gMYP0p2Da ecLrTJMZKHRmzHuoQR24mQ BjZWxpYWMgZGlzZWFzZSBh iaZjdbRyv24ksiNjv4PuVR 6mjYevMHeBWAozHhAvKE7v WYCefcYqo8LvXH1fVMCxmS UxJZEsgfiaoQMjENk1bWMl PIVpOiGorAzuh1CkRNIsBB feVO91iyDfIP5nIUjzIY6h NXrlSI0pXUQiQCFeTNZaXf NziPQjUcOfsSGuMdKyS23u QgSElQKor7SeN8ziDA7tvC TmMsjvbWJfKFMxhGpui0Jg fIRcUHRsj5BbnTHqLCucRR 6xHRJ9Df1ugXFrZULhmxH3 r8WhJXykALEjDtysEOWyIO vev4WlIXLomKQKl1DoCT3K XHBhciANClxzYTMwXGVwaW KKg2TlEJSAPzfduNisLzTp mHUrDcQ4MKWncEXqGIH2AY 1iqEcdKKNoRNm4NPtxYURx C7TrO5XvORwcGbOtLVklPJ RbPHGaAIgzGQOpM1CBZJGx RLE7YcDvPZVxUYc1EGtvJ6 BDMDNoWKMdIiV1DIG6DfU5 EKc3IVTRIk8yUQlbRxSjNV CaWxZ8FXn3QpHwUHFuFySe EWXvLLBgXKtwrIWvBH2wfC mdEBViFGDnWIM4RACutTUT r4JjDVQdQUggAxWkCAZNED KASG4LKuLLWPVhTmChaEHu FN5HSAKulnRlAOdjoNxzyX 2xdUGyM9wzNzHvKcqjsSci TmVzdERvYzEgDQpcbHRycG FyXGxpbjBccmluMFxzYjMw MANeoNLCn7ByKUARJdSoQC NpbWVuIEMgaXMgcmVjZWl2 GSEjnP0vDd3qlPOinF7llO KoNKdeIDDiq7j5dJH4pPUn vVD7kAYfjVfgBkEfNY4dsP QjYVRBEO57jPAfhjPlJFUg wN4dIVBxIMJfATH6vatsBR FZHEN9oOSdo6Q5XZbeUQX9 yX5niWyhUpEaX6S8FROvCR Phz05jdTM8ycLtYxCeOJSp id0yrS7mSSqihpMjpHchhp Qiv5R1ZEYcx8I8MQLjnvUv sGToiPBtFSQqCjZ1DQUgLv B0BREsNGHnmKIcFJLoWV9l VGhlIHNwZWNpbWVuIGlzIG FchOBgclLuABYova74Q4vc HRJjeE3vp0szYqVvAPFhZF LhkQAugOP4AXCqgA8dhX22 zxMwncXLQJ1usBYgQG7FER NiMFxlcGljWHNiMCANClxw KBStJWbsb3YpHMagyKnyBO UeGhGeWBkUaQocBMVXJ4ss aJQzBEqxSTJFQOgAY1PINM 5OUHHvnZNAWYM0TG7mWVfp GYTlY3AsW4SdhaF4j0dqjF qkd4UonOEaSD9iuAIrFF1Z XHBhcmQgDQp9 Disclaimer (test code = 6848885123) o7vcuSXpTHNvu0kyHSLdxI FuZzEwMzNcZnRuYmpcdWMx ZLfhlmMqHWuui0ZjR6YzQp AwMFxhbnNpXGRlZmxhbmcx DPAfZWZ5pmXfVXToMMivED PyIFpjXv0nlPWqrLqwFgQe JPGdd1mcacUKQPohJjJiL3 88MUMdMHjmy3gix8QxHAPm yTFpw6X0QHAEmjsniDy6jK hvP04je2H8QwoqA9nnSGRo QKLyQ4UtQN3rTNImSbh5CV V3CTT3ATWfFOAjH3PtHG7v KENryLMiBZs1o1okzYonOU IfBUE2r8ajMUqlmdUnHK1z fi0ynCx9a2vzgtYjTYMuWN AavSEYXQCaE6WkjJjpHt5w nBe8sWdeKkqvMTW1Bpd0XN 1pdi56kkk6mZzkGWWwehgl LtO7GMdmGKQxlbxiESw7ML ppGHVshQL4AITfpBKrB2Dr AKKtHT4rvea7WZC5RAnlBO XnOzZ1BJUqaACqCIYqeDxg ZLtau940BTV9VlQwNL0yZ2 Byb2W7nX2tmTGeENMeyCQy VtMgEUBrvj9hzXHoZLrma3 WkQXJ8avV7pUPrfSXdDYAh XK11Dpipp1JoFryys3WvV2 7mzMO3LGcnf4xyNM3mGpJ1 yjIaBQgeh3nlwQ3dQmM2BK goTP1uEN2cJLAqfR5ejuhu XHBnYnJkcmhlYWRccGdicm SdNg0rwNpaMNT1GUkwD5kn xG9yCuJ1OVllM7rhyZ7wOT b6UClteQV3DPRvoH9fDB6l yqphz5iePLkbFAudYHWeje I4baW8AYEkwYVjX5NsjV1j TCTvRO2frwdjk7nkMIH8SU zvZSBkIAE5SjCwOULdx0Se tbi7AkAge9TzaHVaVOkgC7 3ut792BEIeifVpY9qgdHNc wzkduNAdysnzLWngtbX9YE FsvlOst6HlQYHdRCQ6FCbe FWirxYVuILJuwMrrj3ezF6 RscGFyXHBsYWluXGYxXGZz MjBcbGFuZzEwMzNcaGljaF ubGPdiBiRaLYYiXBhrH9ef WrUwD3NzJYCtTcVveNXtH0 ggVGhpcyByZXBvcnQgbWF5 EKjqU8d3RJKhbaDjlDo7fb CiYwPbAZPhVFO8THdgkATm XPKiv7JssjheoTJrVi7hpF KdDSKepI1pREAcVKImYKvr JX1mkWa5ELLBmJOlyHGwJb MQYDKrKS61cwUqVMCMfcjz n7V0JZlhNKJej1LraQQtV6 fhj8ZgGQPwb75tKD6br9J1 i3thIHV8HX0hh9KjDTOdaX YjcRJnQEZxa9Ilqtkue9Sm SCMrhxIma9CnSREexiNdeA XgSHKejxGftt2sppTcMEWg DNZgH7PkuqljsOiliaBnOM Mhmk3pxtAjYIC0HEPLTTIm CLUax0UkrC2iqJZHCJZ3tI Pyey6blxHVjZJmDRXzkx31 LMDsFE1dF0nzSOSgPUCrjq EdgLOmb4JwIHHosMA4zKGj ML6VTdZNf97oZCAjRPFSqi EjBTKmhQwjwDB6fnK3zU9x IChGREEpLlx+IFRoZSBGRE TiOE2fkqKsi0NfhdVjkVbz ZBMdmJUvs6EyeCUuu0JoyD ryr9VwbDGvhHUoZQ7xIMNe clxwYXIgVVRNQiBMYWJvcm L7e2SpUQIuMODlIVD5vGvz xgr8UVVfzJ9zIRUvF2shzd bwBMhoKJDjk0BbsK0wbEYX rEFbf9YnnRTipZNZlRImXW 1ykmXpVBkIBToEOKD6tbBj BBPjr1AcAHjjZ4pbI95nrN fbpGf7lCE1MOT0bX5zRnt+ IFxwYXJccGFyIEFwcHJvcH XrOBPunVllsdTaU8KkajFj wI1hnBQlgrJwLG4iET0cY5 A3wCBvSKTjsqCjc7ybGXak dmUgYmVlbiByZXZpZXdlZC Zjm5AuNOkpDNS7NCgwqbJh bmNsdWRpbmcgSCZFLCBTcG QgaVDfNZI7MGljfwDmvcHo LW2yaY9mpMtabS1djFZeyX I4kyojOETjRXPepPllDCDo ZM0mqWjfkO3qLySxOsLeMO nkCF9nXQLmO8ttaPPgQCTc SBSeC0exRqFqtK7vmHkaWT xjZjJcZnMyMFxwYXJccGFy XHBsYWluXGYxXGZzMjBcbG FuZzEwMzNcaGljaFxmMVxk PvJzQOFcDFalE9vvVbQqL1 RfLVYiYbRfwPKvR3fhROyh FGX0VWUaID1icLFbXK16wS Fly8kvJJqkgXehkp2cY60e eQOhDGgivOciZPJsz50dk1 RwLMFgjuVdoc6sSHMejaJ6 zJ4rGMPoqZnzHUMraUZhKD Hja0LzJKysyJLiowLzVOij UGSgGPZelMLcssI1dmLzft UfiqUlAXMvhUhaYRRgj8Xp KZRdKTwdt1Jpha5vvZMlMH HuvnBOxBswpVDkaK9uC5Rg KCHcCWQcch9sWRVnnH9mKH udc4GbfqnyFIUnNIMdLLOa abHaji5fSSVksINVLA6UCT rdtRJod3EsomSqR0xAQIY1 NUQwNjYwMjgxKSBleGNlcH DsDBVpda96BKXtlD0huZwt ZQGqoT6boC5huYttqJ6bAt TyDdKvYHvnDM8bLSVvX0hd vZIkWHYlZVLcR7afGgHgpB 9jaFxmMVxjZjJcZnMyMFxw YXJ9fQ== Embedded Images (test code = [id number]) [facility] [id number] 19:23:05* Test Item Value Reference Range Interpretation Comme nts Case Report (test code = 0427216924) Surgical Pathology ?Case: [id number] ? Authorizing Provider: ?Dominic Keita MD ? [...] HPylori ? Final Diagnosis (test code = 7026453859) [id number] FuZzEwMzNcZnRuYmpcdWMx WOsmzqBlNCoyzTodPEA0QD CyTS4opWfrhCf7xSfvZIUx giS5uLUdIVaki7hqBLJ9q9 ctrzqaDBUiYRsaUm8tnXQm bOlmEbCnYDPiRSh5hY79FM WgaO6ocCViCRs8JJHfaCXl oxMtJwWdTMReiNUmyHG9OG FnRV9wwtxlEBhaZWreJIDf azE6ARIqxFDiP4OnKOGfQW 1ghbafGDR5OUljCKSiBIT5 KoRmXORgg7Oqhoc1ToDvtA FyZFxwbGFpblxmczIwXHBh mnQHRrNIRM8URDZMURRGJ8 kBRJSYOS5MUWJIQmabrXTt KUAeTBGwYQQRTD1KSDFpB7 tJNaBkDN9HFENqHUUvxFHh JDMpmmKSAxNFAK4KFC3SLH wgQklPUFNZOlxwYXIgICAg DPRpCAyAZ7SGQYYgSKQCD5 FQCWfEFXcmTw9vJJIFNX0Q R0bHM3NIAXIPPS2MKEygSP BlKMTlDVVsGC3DUDxfDOFH EB3ACUZEYLEFVFlNPMLIAK EOVPjLITKJR8ZLUPlIDUWp llhpMPJmXi4uP1UQGJMRNB wgQklPUFNZOlxwYXIgICAg BCXwHJNMP0YHWuHICC8WL9 8FFQCVAGIXEQ3DUFBDFZsV KX6HUAIOHVLQLIILS3VozH FyICAgICAgLSBOTyBFVklE RJ8PVBQSZaDEIQqIGMPhKG lTRUFTRVxwYXIgICAgICAt UN7HRFbcPOWZID3WBSYMSq dBTklTTVMgSURFTlRJRklF QPCIYRBVUX4HQc1ILVZHYw xwYXJccGFyfXtccnRmMVxz x1UwA6ZlStWcDVibusOiJK YsQipevwewTRVxNYY6bqBj LIGfHUoqACMgBJbpBw9rnD SpbDzeGpRaQDGwg1bldgQB BPizWjVsO439IOYkLDevx1 qub7DdKGFmxFVxx1L2LHFN nthiiYn3n2iiGqJdFsK4lM NtTHopN2zqxeVwgJVpK7Gk pQJziKd3aUjxG64uy7T7Je qoB6chHGCfZVImP9UiLL8n YTNqThy5FNE3CWA0BYUsQI RwC9JvNW0nBMIiyFFbCVe0 j0fysEtpKMRdEWF8o8hfWQ vtfmE4WQ6hin3nrVi4k7qm czEgRGVmYXVsdCBQYXJhZ3 VhuRldFc3swRg1uXzcTjeg RGI8Jdu9CY5ijk44sxd5zC xnZCZowdqqWvS1DDwsJLDb rujrEKm9FKvzKAGsqMQ3NT DaeZXcY0LdPCCdXC4xbok7 TDJ2DAffNXRpNuM9AMVgtZ IqSBZoeUjnYGxjt649YDV0 YwNyKJ1lI3Cqg1K1yI8kmP FbUFAprFWeDmAoKUNpzj3o qRHoCHjaw5KwVWZ5fiV3yR NomVMjRPGhMD24Kexam8Kd AsdeABZ6OYKrphTgg4Zyc3 akMdLzeqPqL9tdX2RnAPDt GAMxORPmBbPeoeOww6Ibj3 UcsHJufXt2v8ueXFPbZJCo kUqtx7sfKYO2ACSmO1M3uL Qfk1nqPYdeGBXbzKY3boZ1 TUWidAJbE6XtxS4xFMYaNM 7sbnb8v1qtSJR2DPhnQYLu SjA3kvG2DWQnuMPwCGYppG vqNHncl379LZZ1GcAdWWZi c2EdU6OfjEpoI71frVndS7 1mEKIjlWabcY9wcMfchD7v ZjBcZnMyNFxxbFxwbGFpbl xmMVxmczIwXGxhbmcxMDMz XCclS8oeKfGfWRXucKqyZC zjg6MgLWQqHHGqIscuncXo XHBhciBJIGhhdmUgcGVyc2 9uYWxseSByZXZpZXdlZCBh tNzbr5ToU6imCX8sW7OlhK TwhqGpckIuCKydMNSum2d5 sFChiMjqn4HniAKbLA81wl ZmUJJtIQP1THVde0mpOS55 iifpCwTesK64atNtswUgNS Fnw3ioT2atpEWgi5Fqd3Ra diLsOFlpc7IaXO6unYEklb uuuRD5MEOtcQNwvuVggvC6 vQkpZXToyC3twN1aaXauzG 6bPrZyQjFcZYxdBU0iKOXt O6vvsYFyPPXmIZIsF5czYw HafP1vmWxqFjfupdE2ATEv cn19 Clinical Information (test code = [id number]) Shivani Schuler is a 47 year old female with IDA1. Gastric polyp x 6 r/o adenoma2.Duodenal Bx, r/o Celiac disease 3. Gastric Bx r/o HPylori Gross Description (test code = [id number]) d1vvxEKaBGPbeZGURGM2WR FnHS6svYbwpSp5fHzbBFUh ruM6mOUxEEbfp6glUVV2w8 djdyZDAzlbNMLkQU4oKKms JBJrES3yAoNmESWbDiMkPN BhcGVydzEyMjQwXHBhcGVy eOG1DWZgNJ1jpvwzQZpsPF nmLANnjgC7JGWkcRLpF2Tw FEPoBH7enmwkHDY9JGPIVc iqYt4luGSmiLirQuIfGsHv YXJzZXQwXGZuaWwgQXJpYW j4iN3JDpvwDHM7EVBEOzbo WxaktOgwo4OrgRRmDMTlZC xcaWQgNTEwMDAgXFxkYiBP JnSnVtM7Btj4QLT6WgZ4MO p7NPUMFNLrUjrvCXQ5DrG9 YWv9MMUzSP9zMMyscTMvFF gqSpxsYCgeN656URaqKZLx A5SnQ6SdGXuiCtRmAWtyOZ ZlIYRwBFyyXQQzT6UKLWTo YTJ5ShZmIGZlDDm3BSqnQ6 XFDUAkELLvYqF0FNVnTrQ1 JGu5CRQJUa4vVDmvArVxHD k9FII3DSw5QtAkJJTxFqZk VVBsSSTkVXtxwUFsYZ4rgT bcILHyTF0HGHSoAOsyKTNv HoHqD9QMZ6wGKH7xBDliqM JjaFxmczIyXHBhciANClxw JEHhXD5OLNVeXLgyWHc5zd KxZARfYfHtOWOuU95ln0HV f8KnFF1UCOp1ruIwsesjiV 8iOENtffVkSZeBnGYsbJ7r wrAWOUepIYTgD4PbutAaXD iwHDZgsg5siIsuOAriFzSa bGVkIHdpdGggdGhlIHBhdG xjxsYvQ8R7kuJpUQ1bKJYG XODeeH0nGRZlLVFza5BppY PglNrlX1NpaQAcUfFky3w1 aMR0MKHsgzScLXLntNUqHD Tmxm3bVJhnRyNfT8G6DERp DKVgh29iyFA5viZhJtEvdR o5dFDbYXE6GX7xxSmaukWz u3q9qL4hDGGdy1G6QSEvb4 N6NEThynClqLVlmQRlQPGn QW9ociWhVR11FFNvEElrEZ bmPRC9XWY4LTDpgIJsh2hd xljwYi1cNVhrKA1bHYwkCZ 86HZYtBJpvOAQtX1WbY0B2 OTxpQWTxHQVtiLVjfD9wpi RupoKejXu5KOSiRLG1zAKy sCibLHKfUhehjET6CTIbDy BoazBtk2WnuKd8oIHuTXhc JSAlcM3keL5oQIOvHTOlqj RSJqokVKHtPFncs0FxONwv cGljWHNhMzAgDQpcZXBpY0 6hr3MEi3Tgy2unzVqfe9Mh iXTxTX5npQQmCL9Cj8fhOV UjpHWuKKX6WJfym6biEOgb EQB4VUOeYtLkGHLbTC9ACo YwZEtuKBp5SIikFNc6WOy3 AG1QAzYtZUZuGno5TlS5Mj SwUMn5JQeuDV9LWCT4BUVs AJPtJCwtZOO4HOPkRYa2PU IgXFxzcyAzIFxcZmwgXFxu C19nhZRmOUaxShAgCOhjhH ndLNCnEJJ4VH7EATZiBjXk R0OGJ2hLQZ9gGvookwJkEV FvmmWWXnyyAZIrHP1XPHQy FRyiETm0brUkVAVgDrPaCK WdY60hs8AUr4BhQM8NSCe9 twDpxkqxxJ9hGWNpfdBcf0 IzMFxlcGljWHNiMzAgDQpT rAIndE1ixlWKRCknLAQwL9 BzbyQrUBvyHTDsey3upLgl IGxhYmVsbGVkIHdpdGggdG ewVRKtoFasnnDpM2E1cwBg IF4qPYTZXBZffW9eKEFxWX OlUTZfRBGkeW4rPXD3h9Hm ufEyFMRPYDJhiMpfSW94fR BjZWxpYWMgZGlzZWFzZSBh joCjhiZux15kpnXim5JrKL 7gzZcaMKaBRSziEnTpSX5e VMMfweAlz1QkCY5fIZPgxG UfCALovuxmyTFaONe9bGAy JOMeAnZppBrjf9KsQFWuIA enKC10dpXvVA0sJGjvJC8c KPjbFH1tRVIsYIBiNVKbUj WxvDPxZlUxzZDpWrAdL11l TwEOnCBtl7BuH1fhUZ9tiH SaPvrtqOCsOJZdyZkfs7Wc rWFvHIXsc6TryVZiSIgaGF 3rPTL3Gf4ijTNaCSKsldB4 h9TsHAlyLJMpUuneKNSlBL luo7DgTDWsbSBHh4FuTT2O XHBhciANClxzYTMwXGVwaW PWq5RyCVWHAquzoVcnPqHr tTBbUnK1QVXxhUNfJRD7KF 6xlKrfQDIkIXx4OVapWGIc Y7ShS5RzUOahEcGyMThgVG MqWSEiXQbxWIMpZ8XNWOSw EDD8TwIwZSSySWj9DXfyY8 DXYUKeJXGvKiG5LTN0VqD1 HSq4QHEEHv7fCNlyPxXcCP LlHzE9YAi0MmBwOMVoTdEq IOGkEALcAKuyhDJwLS3rdP myPMMiMNGjLON1LXEivYOT e7BnLDXjZVneMvXlCJLXNO SCKW9ZUjVAJWQoBwUswKUw CY3GFQCfbaXhUGxxlArvqY 9lwORaZ7tvPoEtEyvwaOci TmVzdERvYzEgDQpcbHRycG FyXGxpbjBccmluMFxzYjMw XBXokCOZg2TlKHFIUdGzIS NpbWVuIEMgaXMgcmVjZWl2 UOShlX5kBc7gnZOyiQ6lyB QfNLdsMCFyv0d6oYC7uANl bUC8iKNqqRumInNyAN4fuN XoZLIJZL46mWCtpbDvTJQm tT9xQVOuLCJtRRF3dkdpBG GYEMH4fUCkp2X4LEydHVI1 gQ2gzAzqOeTwG1O4GHWbQE Frw11ntOB0lbDhIiMeZJOa de7bqE0uVAdsbrCneBdlxx Ixs9L0VGCdp3K7TTIfrdNt nMDxqMEsWDRsKrG5NEFwUu Q5EXMfUQGqvHJcDEBeLJ7u VGhlIHNwZWNpbWVuIGlzIG GfoDExtiJfJTKcfj19X3xk ZMBcdY2kz5fhXlTdUZAzZR XdyUIvjPJ1HBByaI9gpD32 ckWmntOQLB8ilGLdOV0FPD NiMFxlcGljWHNiMCANClxw VUTpQWswl2CtYRkgvHfhYA KaWuIrSApLwXwtBXDTS4kp xBUhSHnsIKYFHGuJM2TWSC 9BVYCroQNLDDC3WC8xRYeq CGTyI0LvO6KtelH7a6lhiE cmc1FfeISuNB0xlQTzCZ9M XHBhcmQgDQp9 Disclaimer (test code = [id number]) t8nycPWyTFOht5viTRJpzK FuZzEwMzNcZnRuYmpcdWMx SKuxteFnJEsge7OdB3MqKg AwMFxhbnNpXGRlZmxhbmcx QRBxLNH0mpQaQCObRFldSG HxDHxaKq1stPDbpNnsFbWu QINoc9nsmoFDJKsyWtOfL5 65ZLOjMDnlz1eco3PkDYLi cLGwb9F3HWVAguropVb6zX tnE79bl0G8YubeE5pvWWPe ALRlK8YdLM8uVVKbErx0FB K5TMS6KKGwMKNeH2SoWL9x XEZjpKUfFJj5d3vzfTfwHB ZvJBF1v0ofXSwlnmQvTU7q su9sxCz4b5rbinNlMRAoNA FabHTQKRWyX0OitFxhBl9n fJl1nUzxXfxgZFB9Fjy2NZ 1jve30gmv7iOpoNHVtnwsr ChY2UCvaLIMmqifnKEs8GO asWAVlySX3JPMekPOrW9Ag KGPdRX4kire3UBC6HRjpCY FjVbZ9FTVosDLgOHNfyPsk ACqrm303GQC9WkTqCI4yM3 Vpx4K0wD7zxSHfWVWlbYMq UcEeKFLsus5kwRLnZJnlg1 HmIWE0egC5sECfeKRoOCWe BG01Cvjew6WtPekba4BfA6 2hpPF5SSjfr0zjBH8wAfX9 zgNiUYqgb6fbaH6fGeH9VY ukAS4qQE8yLXXzmT4cffwh XHBnYnJkcmhlYWRccGdicm MgXq8eoSnuCNM5ALchV8ux iN7eNtP5ROnfQ6zdwK7rZF s7RTvnwPG8EJKinV4wRS9j opsbe2isKYfmCJbkEJYsxz W5chS0RIMjgKDnG9HitG7v PSLqUE7ftnqgt8whEFH6GW uwMTNbTOI6QtTrQFEkg2Rm xlw8XyUlu7AdzLEcSKcgP3 2zp117RATiwmCeE1dffFWm mkyzxCPydkxgVCczwiV4ER RrltNfc3SxXTWwMDG2LKgq LNyroDEtGMIdbXduz9meS2 RscGFyXHBsYWluXGYxXGZz MjBcbGFuZzEwMzNcaGljaF ykFZhuLsUwUNDpRQogD7zt AxMsK9OnGJMqKuDcxYGaK6 ggVGhpcyByZXBvcnQgbWF5 ADruS9s5IBOheeCutWo9do QmJvCdQJNvILL3OPtriNHu YYQai8WznarbhKNcLs3vnG GsOMFcmM2aAODiQIUiVLbb VF2ufEv7IUJTxBLozLBiSp ECMMOiEH78vuMeKBCAtzku p2N6JChkNJOrj9UfiOIjE7 adg7VnAPIdc71wQW5ag6G6 n6vnEDM8EH7ns5AuVYNrnC FydYSjRIPci4Xzkgwnm1Jh KKYyeiLyr2TbCXUmzaOweG TePOWugeUoja9zewVlPRFa BAOiM9AbztpqlTztgzXwWH Xzhh8qtwChKUQ6DLRYRVIp VXRaj1QuwS2uxWALHNB6xE Ycvj0qwqJViGViJNPzjf29 RCYfMW1hL8stLZAnVWIyua RmzOZle7SzRFBuhDA0eDIa QP9UIkMYf22dAKJuJWPFjc IqAEEdnIxksPB6vhZ0eY8z IChGREEpLlx+IFRoZSBGRE FeYF6kxwVjr4UxzsFbcYia CMLjpRQmy4XtkHCpr3MtwK nfy0OudBMzjCNuFO8jAHOx clxwYXIgVVRNQiBMYWJvcm S1j9WeYWKiQWWhNBO7oGez njl5VAYzuW2zILOhP0btph smICpmPTLpa0OjvJ1ffIRX rYNss0DpyOHpyYZRmIAnDP 0lwnZrRDbGLYkNLQO4roNt AUGox7BjVQszX4wfW53bgH pabOx5pSZ5TII9rT4xGvv+ IFxwYXJccGFyIEFwcHJvcH PrOCSecAzyrdDlD6OcwoZp zN4zaZEkscJwPM1oCS2iA1 N0cHNqBBUhswKek2ezNBzn dmUgYmVlbiByZXZpZXdlZC Lap1TgQBkqKIV7QPipocQx bmNsdWRpbmcgSCZFLCBTcG MusTSkGUR8ALkxgqIvabQp KS8lfV8zjAqlcU6vuZGotO H8obdmTBQbCZAwrFlxDWKx VH7bgWtvmO3hTkCnKqAeBZ thLB6iGCPkB0ewaKMtCGVk SXFbL1pqOvZmoH9auExiQM xjZjJcZnMyMFxwYXJccGFy XHBsYWluXGYxXGZzMjBcbG FuZzEwMzNcaGljaFxmMVxk CdOtDWXfVVulR7piYfZdA5 PjCLIdZkLsfXMxV5haROjy THN1CRGtCO0iwWAlWW53eB Mli8ueJEbaaZewpl4lZ44y cJWhDNthkOpxUCUsq02je4 TjXTZtcjAipq8zKHHsggW3 lI0fTGAveYxaUJPwzDYuIR Uah6QkRLfbkWTtylStKCtp COCwKUOttMKelhZ9ugNiri LtxhWfHWXulGnrZFOff5Te AWWuHWpat0Nfrd4yrBYqJR XzpoGAmVfsmOLofY8kJ4Qc ZCTtIDJpwf3cPUGhvQ5pVB eqs6YuhoauVBLrPBKfHRCy ueOiud4xXKVgcUEMZB7YZI ufqFOlq4CqkeTnK6fKMBP1 NUQwNjYwMjgxKSBleGNlcH SfTMPqfv75NYYwfX7zbPis TLYlrA2krT5rqKzbmO5oBh SrIkQqCUohBP5aJKWaY7bj uDZaEFLhHGRyK6vwTbSreE 9jaFxmMVxjZjJcZnMyMFxw YXJ9fQ== Embedded Images (test code = [id number]) [facility] GIKN3178-06-16 19:23:05* Test Item Value Reference Range Interpretation Comme nts Case Report (test code = [id number]) Surgical Pathology ?Case: [id number] ? Authorizing Provider: ?Dominic Keita MD ? [...] HPylori ? Final Diagnosis (test code = [id number]) r2voaAMfXVKgk4aqLQTklL FuZzEwMzNcZnRuYmpcdWMx GVnowpPeRYheyUdvEUF0VK UtHE0gxUfsfKf0bVvnJHFn dsF6fDDdTPlfk7twIEL5e1 nexhusXBWqGNbzYr5pkYRz yAxlUzOtPPEoEWc7nV77DI LjcF0mjLRrNJs5ICPlqCWo izLkLfLbXXTvcGStvTO3QN LmMK1fgznhQWxtQMkqWJNz pyE3SEEbhYOkF0DiOVPsDN 6bmfmmPCJ4YTcmNBNxJNG6 IcKeECNfl4Khppr3GbNrqI FyZFxwbGFpblxmczIwXHBh ouCNPlMSOA0JSNXNJEEAF5 vJNECOOE4IEJRVRbffxTDz UXEmNKJvUALKTQ8VTGGmL5 jDLuGtNN3OQMAxAHTumJFj SWCqsgXNXbVZKI4YBI5NWT wgQklPUFNZOlxwYXIgICAg EPEkXRgUO9EUXMNdINJRK0 SGLLuIGSnzKn6iDLTFKO0G A0sAZ7QQTNRCRB8YAEbkIM QbVBByQLYxLW4NFHtfZUQJ AQ4NRAGRFMZEWRjWTLUVGV WOEVtWATEVY1XVZMtUQWUo ktcoENToAo9lI0UVUNZUGY wgQklPUFNZOlxwYXIgICAg UNLmPNPYP0SWYuUWOW7LX5 0WZPXNYMQVIE9RREBMXRyB GV5QBIRQJCXREJHAU2BgmG FyICAgICAgLSBOTyBFVklE GF7QWHLYSsHADSkLSIUbRJ lTRUFTRVxwYXIgICAgICAt DG9YUFhwFXOGSL1HDRMILo dBTklTTVMgSURFTlRJRklF VBUFMKXGCD2WTk6DZAVMAm xwYXJccGFyfXtccnRmMVxz i2HeJ9WlQnLlNSymsbTlUF WrAoredqneWLXiUPH7gxQl ULWnQFluCDWnJTwnLp8rtD CrnDdlEiVbGTYmn7htomOS WKpwQeNsJ428CFCwZJhtj1 swu2AaBWTenYKvd3A6QFSF ynjjqNn7k7vxUfOrJvH2kC QpFDfaL6ostfYjvBFnI4Ts mTYmpXy8mQwnV55vb5C1Rt bjI9uyVGHbIAVaM3VjAV1n EXDzGsz8OXN8HMK2ZSAfEZ OgT2RkZQ0iTYTreVXaPWz1 h9dqeGppMUScZCO6x0kdIP kcouF4ON5upy4ysVc9c2ij czEgRGVmYXVsdCBQYXJhZ3 ZrhCboTs4hiUy0kBzeBpau DDV9Qjv8MW5rir11otl3eP ldRAJssxlxJnH2ZFkvUIIp tyjrELs5ABroBAFuhCA3IZ DvsQCyF5RmFCDmZL5dxvd0 BWQ7MWzjPSQnUtY1BXKdxM NnMWDljAmcDWatz093VJN3 JhNqPK2xW0Odv5H1dW7vaN BkSCJdiFTrAzFiRATngf2a xCNgKEdcd4DkITI6dtG0fS HsqSQdEJTeKF82Jpstd3Tw NwkzVSU6YUUwmcRcl5Ykj6 xqTbSzquJpU7xnG9EoUZPk XHDvDWUfTrSpxgPid2Rbo3 OygHAavRl4b5hqUESdLNGi yPlpo9jlSLK2RNAiR7S7fH Ums1elHBsvRENzqLK8hxB0 KTUaqZUeS3RhsD9gRZSrJC 7nnyj6l5naAQX4PLobPSHk TfM4qdQ2PSTebFPaKWGpoZ cuXGkct719YOA3QsKdPIRv j3UbE5SzxJffK12ckZgvZ0 4fQKNgjUrfdF9apTiywQ0h ZjBcZnMyNFxxbFxwbGFpbl xmMVxmczIwXGxhbmcxMDMz JWhzF2fnQvCeDARliJveWD zih9AgZMLnZMQeSualioNj XHBhciBJIGhhdmUgcGVyc2 9uYWxseSByZXZpZXdlZCBh yTkaz6PlJ7klGK8iD1QeqZ XyozGihaLaSKjrYKPxm1z0 sGVflIoxv4TlwDWsJH89qz GbMPFdDUS4CGLet1agDK98 zohdUuPmcN09vfVdpsQsBX Uqq5mkH4dfwBGif7Whv6Oz lhDtRYwep0EiSJ2kuONkbl yyeWK7GZYetTSymcNwpuP9 lTibMZJmiE5mtI0muNizeA 3yFkTtWgHyGWbsXS2jFADu L5snkWAxLWSuMBXcH7wwTa ShuB5qyGkoVpvjllI8KXEr cn19 Clinical Information (test code = [id number]) Shivani Schuler is a 47 year old female with IDA1. Gastric polyp x 6 r/o adenoma2.Duodenal Bx, r/o Celiac disease 3. Gastric Bx r/o HPylori Gross Description (test code = [id number]) f1ivnDEeCGFnaLMOEOK3EN ZbDD8qvJxrlRg8yJlyLLMh jmY4kWEwCByzo7yrQXW7k2 gkihZLQsxjICYhNB4uEWpf VARiYR3pOpCmEIOqMxWtEI BhcGVydzEyMjQwXHBhcGVy cYE2QNHdPY3londlDUhhWP aoEKFgneG9ZHNcwOGiJ5Hk HVDuAE3gjlrtUTI3SQZHYe epIs1jaQGueRshXaJkKrHc YXJzZXQwXGZuaWwgQXJpYW s4eJ5CMpoeTKU1ARCMXxih VtbzeOkhb3ZzoYFuQKCpQF xcaWQgNTEwMDAgXFxkYiBP NnRtRpG8Ocr3IBU6EkW2AT d2GUONIDMbMtfhQHW3AsQ7 FXt1ECCgQM5wFTytcIPcJW jdOeyhQAnlN335GPcoNBPn A4EyD1UgUWpqDlMxSIhqJG JgUMHbAUrpBHPmU1MVYWSk QUE5RuVhKKPhMEv5VDopF6 PHPXJiPHTwOhN0QBFrPcV7 WCt7IGEBDs2lCKtsMoEeUB i1ULU5LOf1LtQnKEOtMpBs SSZpNAXjXIsmnUPfHO3teD gtZNXkJM8LMGYuHAggKHAc DnHvB0KDD0dKSN5nSVpvfX JjaFxmczIyXHBhciANClxw YVXpRA8RPRSyTWcuFPj4kn PbNBTgEbTvAUSiW08nh3SH f1FhJL2OQUf2vlPxuhywvC 8fLLPdbcBuSLcVwIXenT3g ajUZQVehYLLjD9VwrxSwEQ byBIQsae9viUrcVHjuZjCq bGVkIHdpdGggdGhlIHBhdG msqhNyT8I5blDfDV5fPGIE IOVwrW5iOBLmOLVhz5VhsY TlfHisD3UphXBbMbWeu7h8 gMK3UUGvbrPlOBKmrOHpWG Nyrc3vFXqwAoMyB4K9MYBf MVCcf74cnBM1kxGaDpAtuW b7iJRpRXA9KE7qyMrdfbKp m0y6kZ1nNPJcb4E9SJVsk0 B3FVStmaIdsWFpsSUqYKMi ER4tkeLvTT18NPKiDXkrEA ixHRS2TOC7SLJgvEYod5aq cxuiLn8iOLwyOZ3yMYrtVX 54FZHoHZsaBNEjL1BxJ2P7 LNlsHVMkDWGqlPSvlU3kml NoddQjqVr2ZBKyFSE2fCEq nIbcZYXxLbrxvYZ5HYAgOb LoetVrt9EcoCw2nANbJZws XXFpiH8tsP0eQEHzQHWcby WLZbqkBENfLPraw3BbSBrh cGljWHNhMzAgDQpcZXBpY0 5aj3SBb0Pac9mjgYzxe1Uh jKKoXB3wfQRtKX9Wy2pbOI YxcLRnANI2PArkr5odNZuw CTN8KBThBcLmIBWoQJ1MGh SlMQeqENd3BSgvMRn6HOb9 BE1CQoBwXLGnGug3VmA9Uy OzJQf4XHciNY4LJQG8ECJa QUEmCVqeUWK4VHPgUNo3EA IgXFxzcyAzIFxcZmwgXFxu H02fbXQfMTfaKmMqMFcupZ izFWHaTFX0YF1YQKOnOjBl U1NPR5hUHA7rCdncthXyAH BvjpCQJjkbTYHhEX4VKQCh YDrdJBo5hzWyGXTfBkAiQJ LrE72tv9QJj3UjHJ2SKAq2 qxLekxjsyR4kRHCtpmKjr3 IzMFxlcGljWHNiMzAgDQpT kCEnmE0rviEZMFfmJUMwU7 TjrwJmEOffBMIteq2axGtl IGxhYmVsbGVkIHdpdGggdG wqKNBivXvwnoNmG2L6ivEt SW1rBIOEBGPqrC2qIPKuNV WnRWGoOSJtsN0zDQJ7b2Oe kjVwMFSSEURfgJcfNS31uL BjZWxpYWMgZGlzZWFzZSBh apJhxiXeq69ljqMpb5QkQX 1rhIsoOMvNWWueNfWqOZ2d PJOgpxTdo1RhXE1xIGNnvH SkHUJsatxclIVvNNt6mJQh NXHjPkOfyJqip4ZhJXFaWR hfTI96bgBdKH8xUXuxGK7f WSiuDA7kMATrXQKqEBLgZa GvrPRvGjNfmJGbAjZeT13n KhJPnXHfx5DoU6gwKO9tqF OgUrwquARkHROjyKkov0Ac jRFpWXFxi6LxkXLlVVofGN 1lKGG9Ux3vjEAsORXmzyT4 g3MtPHqqEDRaXuuoEWOzNU ubf9BmIPQkvLNJr8DkAC3I XHBhciANClxzYTMwXGVwaW VEs3AiZYZYBwgccKktCaPl xLVaBzF3MLCscAVrYJI4XB 4osBfuGWNoVIj3PTdwELXb E0YhA3CfMFtiTpYiEVocHV JaMEJnJKklOZQtO8HQKNPf QOM9QkAdXYDnIDx8LUmjA1 UHALViUWOyZtU2MPW7SwN7 ZWm9NINKSj4fSUdwRfFdZN MeXhJ0SNe0DcKmKOViRqQd TSQwTZAsUAdcvQMpCX1caJ yfGTWcFUJrSXE1FVFmvSAX z1IqKNFhAEpeFgAqLEOMXN WVFZ5JNxPEALKtSwQxhTXa OK7MQZJziwBcPCrorMewuA 3lgFTrD8rhVjFrTnvvrLht TmVzdERvYzEgDQpcbHRycG FyXGxpbjBccmluMFxzYjMw VQQdyAQCx2NuMBYWXeAoDN NpbWVuIEMgaXMgcmVjZWl2 CIHddO2uDm2hgELxvM8axP WwBJceHGWaz2u5kYS4xHIb aEO0ePDtmJbfKeKuJG3znE EhHAYBJB04yKGllpNeFQTk zB9rQRLrWNHzPZG9ftbcJV CDOKU9eENak1D1MNtxVBJ4 xI3eyTkkXfJpO5K1IRLnIL Klv93hhRR7ktBtIaXgUELt td2pmW0gNTvbzfXcwXihww Ase9W9FSUlh9K1JWJdcbCu mSUyxDRwLLVrXdL3PLBaPd S3HLEiMICxmIKiUYVcOX0x VGhlIHNwZWNpbWVuIGlzIG MxwXQiyuIuEAZvlu67S2sv SDFekL5bn8shDvSuEZZlWH EweMWvjTK6WLBzsA2nuJ19 trTnwbPNSZ5pmATrDL0GZB NiMFxlcGljWHNiMCANClxw COIjNGgkm3SeXRlzxFfwVP CbEpRwTGaTiBboZQRKZ7qp nZLcEMbpUMTPIFbHI4FOAF 5HAIFfiBKWKJI4ZV7cKYkg CFKvB5XzD2OfpxW0n4gktF vhu7HoiDSzRK9nqESaFO4R XHBhcmQgDQp9 Disclaimer (test code = [id number]) t0shpAGmIPQhb7ekVNXbcM FuZzEwMzNcZnRuYmpcdWMx MZrataWdQAvbv3LbW9IaSk AwMFxhbnNpXGRlZmxhbmcx TLXtAAT1zdOyWPCrVEovHD QfNUvsTp4ahBUtoPsaPrGq QNUyk3tchoFWECbwNoBeH8 52VHFyEEeey0jon7HqVKQj gJZpo4H0MEFMhehwaOv6yZ vjP18vs2Z7GihxO4qkZNIa XCKzR0QvLX3bNTCeHea5LO L8JRM6PWJdQGCjP1CcRB7e VLEsxEXeKGn8f9isvFbbHS PxKDC0k3adSGuuqnKnOP9g gr3lfYm1u8kybjFbEJLaPY LssJPGKSNmJ2ExaVjsMi5v iIo0fZajRsqfVJN8Csj9XF 6kfm23yzz1iXdeNJJluhdv DfI0EMgrXOWsvadgWPz7NK coHKRbjCQ0VJYisYHxO1Gt DHHdNM1wmei9MTA4TDzmIA CuPxP7EFXgwNQsPKRyhBri ACymh720OLN8WwFuRR6iG1 Fea5E0mI0qeCReWDJpoRCb FdRvJNCqyf8avUDvIGnhg4 QiFJK9feS9bGMemQLdTVAq YL82Oasoh9GlDvupp1BbN8 9rwCL4ZWdeo6buQI1nTmI3 ewGcFZhsd2hugF7fYeI6UZ erFH3vNQ9xYNKurQ6djbjw XHBnYnJkcmhlYWRccGdicm KbDm4gqZpiTRU8MSfgL3qq gP9dWcZ9NVzaZ6kvdJ6gUL w4HPlbqAM8UAEseQ4fHV1e btrzj5xoGVnvAHigOKNnpp W4xcJ8PRBetGJbC3BbeL2e GINwZN3yjhxhr8asINQ0CH axUFYgKEF3DnIhWHYuc1Qk jmy3QeEwz7KbfAGbNOdoT9 6lx030IMMehwOqA3ylrVYh dfnsmKSlouyhOKvayyM7RS BbhcXdn8OjXEDuWFA7TExa VQnuqSTdXAMbsNtkk7fdX3 RscGFyXHBsYWluXGYxXGZz MjBcbGFuZzEwMzNcaGljaF jmABauJvNkMADxWWxmQ9su AdBkJ4KbAJAdUqSklJXpJ1 ggVGhpcyByZXBvcnQgbWF5 OGajN7x5TYQtccKynEu5sc FoArJqTXLtSJS8FWkqtNFb WHOnz5HxctbutUUzGz0mmW GxXUVuqT1sDZPsQWImITzz WQ6woGs7RGPBvKWooBHtJp VMXDQqON88tsWcBGPWhyxj x3S9XMuvDCVgj6AsvHFoY8 bvy2PyLBBvn51aHI5uf4F2 o6kvICP6JB6rf7FhWEMwbH TcrBUhDEAcu7Jarsjpy4Zc KCTouxGyt7YqRZFbibIgqO AgPIIhwmTisl3itiSvJEPj LNGmG7MnprsgvUxcbzFfYJ Iaze1hdfAeOQU1RYADWKBu RVPay2QgkZ6xjPOANOH5jJ Ppfu2wvcDLcSElRKMylm48 QSOxVP3iU4pxCBTcVQRzca UumBUxx4EwHYLaoML6mGCu XY0NKjSGj50iSBJwXNOXio TeYPDfpPtceUI4qfM0wK4f IChGREEpLlx+IFRoZSBGRE BfHS5qobBuk4UhbgCfqMzc JTBiiRWwr8VrbUPvu9McbB bio5UbnSLfdMXeTI5uPUVk clxwYXIgVVRNQiBMYWJvcm X1t1UhPQOhOTAkDAK4iTsn jhf8HTHqrA2pQJKqK2ttpn gvGYnvNFIve0ApiU1vmKET dURaw6MokULmmEUEjWKsAB 8enkRqAIyJQIcTTZR3kbPy CSZww9JxPFqxY2pqB89ghR anzHv1nCU9FNU6sW9pRlg+ IFxwYXJccGFyIEFwcHJvcH RkOYHimMmzylXcZ3HcxfJj dN7tbTVirfZvCH3fIY1fA9 V4xWNyJVFrphEfl3gjBAed dmUgYmVlbiByZXZpZXdlZC Jbc7GaBTfwIWW2IWwpdaJr bmNsdWRpbmcgSCZFLCBTcG RnqEUxVYB6ZFlwjwPpmhHj TK9wfA2zxYoadL9wwIDnhJ M2pjxzFSWoUWStuWvpIIRg GZ2ovAsusD1iDpQqAoFyNS fqNQ1mSNYhL8kruWRvYSMn VZEgV5elGnQgiT4lsCvdKM xjZjJcZnMyMFxwYXJccGFy XHBsYWluXGYxXGZzMjBcbG FuZzEwMzNcaGljaFxmMVxk IkMuCZJvGBhkS2ipBuCnA4 NbNMCjYkNpzXPzD8cgQXhk RER6DTIpHA8qdWLxYF30tL Kte7wwJOiplPqsyq7zU34v eUDvOQazkZfgZRRiq06cg7 PiSLUwbaDpfu6wUFYqdaY4 tB0zUBXgsEeqOHRctALhVF Qlx0MwBDkugGUwuxNpZBme DWHuGNZzsVCleuF6gkXndw JrjaPjPHNziIgpZJLex8Gs HCEkJMptb6Drcx9pfJGoDK TaeoEJsPbisMAchY8tK4Bu KDDvKJWauq7qEGXziG2jFN rnp2CyoeeyMQJwHLLqXXJf poDaou7gHWEymSCLLA2ABS kyoRAho5ViocGdC2rBHOZ5 NUQwNjYwMjgxKSBleGNlcH BeFDRlul11KMKfvB3kaBgv FVVlfV1lzU8wbNmdhN4mEc PwBnBqHOxmHL4rPHUeV4ae pNCmWYAnUTJtS5yaRtHmpK 9jaFxmMVxjZjJcZnMyMFxw YXJ9fQ== Embedded Images (test code = [id number]) [facility] [id number] 19:23:05* Test Item Value Reference Range Interpretation Comme nts Case Report (test code = [id number]) Surgical Pathology ?Case: [id number] ? Authorizing Provider: ?Dominic Keita MD ? [...] HPylori ? Final Diagnosis (test code = [id number]) [id number] FuZzEwMzNcZnRuYmpcdWMx COfdamNsFBiouUbmDOZ3GN MpTK7wuVqjkNe1lRbzQKFm mwH8mOXkMIwxl6bmMDC4x2 pgirlkWTGiTDnlXa3mgGMm qUjtBbGcOSFmURt1oS81NW AfzM3jyBAtZBb6ZKDhpFAy vxKiLhTpOXMyyMDekAE7RB AeUT2bpaqtRTeiOWmtSDTm fmJ4OHHppCGfV5PzRRQtWR 9fpnjsPDM8CJvfQTKgGUX3 ViYtTGCok3Vmgwq1IeGcmF FyZFxwbGFpblxmczIwXHBh yvOBLuUURM7DQLTBWPDKZ7 fLMHOTAB7CNNSTGveklFGc SQVsFCPqJSMGGH7SWCUnC1 dVQxDfZI0FTJWgQJQbpTRz TFNrpsFUBqYVXK4SEI8ZFV wgQklPUFNZOlxwYXIgICAg IUXdDWwZP2FMRFGyUITYR8 EHONnVVNjnNa5oEFRPSL6U W0rPN4UKTEFYIS8DAFcrTX NaJIFtRKJdJI8EWZazXXZQ CS3MJVMFQMODFBrFYMQZUV AXMPpJILFGU2MFCWhBVOEl srfgWVBzPa0fV6RDJUNAAN wgQklPUFNZOlxwYXIgICAg AWXzRYVKC7BXQzNYRB5GZ3 7NLEUHCFQTLG6ZZKOHBArQ ZI5QKNOLMHANDXDNF0IfzU FyICAgICAgLSBOTyBFVklE CK8ABDKUAtTGQHjOKVGdSP lTRUFTRVxwYXIgICAgICAt FD1TJSjaIEAMEW6XJWWOGw dBTklTTVMgSURFTlRJRklF XMHKKEGHDY9CCx9VAISXRv xwYXJccGFyfXtccnRmMVxz b2FqG5XmIaTiJXexyjKcNW ZuOudbydfpVBWuKBP5uiLu ZKIgNIizOHBzCMkqDs8ffL MebMftQyCzDTVef1iekmNG ZYltRuEkQ149OVNpPNqbt8 rqn2XyEEXsePBal6C7GZMB mgzadQv8s9nqInCzQvD8hY RsXXrqV9ghjlIvcPUcZ4Gf wBTcrKv4xBkiS31ys2Z0Vi srV9mfHUAfQCKtN6MtGZ3d ARLoOox5FXQ7NUP7MOPpNP VtJ5GpGH8tYLHxmHRiUVg7 k3vatWcwZKNnJDM1y6znVJ ljdrI7DQ4jef8fyKz4h9xv czEgRGVmYXVsdCBQYXJhZ3 GgdVqlXy4aiUu3jMzkXtay YQA6Ofr2LN5dgq11xui7bV tfUYHwfdnhZtY7YQxoCIGo xkyeHYh9SPqjHPDcaUP3JH ZomNDrW5LjLAVqBP9pgks8 LZJ3EZzrAJEoSsF4MVEasT XyLUUszPzhPXmhj935AMQ4 MnMsKU1uK4Nyc8B9zL3xoL EkCEMqxENrDbKbINQrck0f kHWeNXemq1KyYSE0zsJ7pS TrwIDrYVSpAT28Anovc2Sk NeizFJG8JVBzbsVta9Wor3 zaLrMeubAsB7tbW3XyQPIz WJXzOJHsDvNrypNmh6Qae7 StmFEayAh2l1ydFYIyQQIa bHbjc1rjXAQ8EOQyN8P7jJ Kjd7jhGEkoWKNclXZ9dfL9 IKPchGJvY0RimL0tQTYhVD 1tkes7a2ktATK6KEgmYNWp HiN4mnV2DNDgpRIuONWpwN elBXdsj879QKP3NqYzRGZs x8MaU6MjrEedB35vhFztC9 9uAAFuxUgozI3mlCtlkR7t ZjBcZnMyNFxxbFxwbGFpbl xmMVxmczIwXGxhbmcxMDMz ATmcC1aiSlTuZGXbrYxcLI gla3ZqCCVsZCLeFllvzsTg XHBhciBJIGhhdmUgcGVyc2 9uYWxseSByZXZpZXdlZCBh yTjsd2DjU6yvRM3vP8KnlA PpkqBrslVaOYwnRMOlh3x1 gJEatLwrf0NqhVFaVO10nw KtUUNjTYT0QMFac4quPU49 fsnfBgQofO36vuIekaIaOX Bop7ksJ1iirAHky3Ohw1Pv xfKxKCvov8BiXP3wcPNlgo eiaAJ6YFDusAFtqhObkjY5 mEfuJAXoaH4klO6vdHctlT 7lIvMkGpPdSZjrEH3vZCUz H6vhhFHpXCDtVEWbR1uhXb ZrmQ9foWcwZwugbzT5PFNw cn19 Clinical Information (test code = [id number]) Shivani Schuler is a 47 year old female with IDA1. Gastric polyp x 6 r/o adenoma2.Duodenal Bx, r/o Celiac disease 3. Gastric Bx r/o HPylori Gross Description (test code = [id number]) h7vhfDUjNQZhmGDSERW5MT WtYT7dsFpzcYx4lXqnHIIj juC6wZAlSCamo4ihFJZ7k1 zwwzHUQmiuZKYoJS8yWRka BVQiPL0xBbShZFTiDaUuTJ BhcGVydzEyMjQwXHBhcGVy oGN8DHAnDC5oxooeRJlrET rgNGYdynQ3HDMriZRzM6Gn POMjGP3uvisyLQV9MOOHIm rpSp2poXEzdAfeJtSqHeVo YXJzZXQwXGZuaWwgQXJpYW e6rZ4QOeobALG5UIEBKcyo CntjhDyrh7XluHQsKEEjUD xcaWQgNTEwMDAgXFxkYiBP UxInClX8Cyo8RAM3QjU7NW h0FIVRBSNqIzmjEFM8OfV8 RFg3QNYrUO3kHObqkLIsMT rtEpfpBOuhZ039ALlqRUTk U5JrI8RtSDzxRyLuHHuoZI PfZXBdXItkPJOrU4LJAFOl QKT7AsNlUSPrYPw3OApxC5 RPVDYiZCLfTtW3HYDyIhD9 ZNj7DEGANc7cPUasZnQlHK r2RNP2CZv0JnSqQKObAsWz UKNrYOWhFVkqlRKsHF8fvA clLPDbIZ8TSYBdJXeeZHGo TrKxO4LAE2lJJZ8mHErffJ JjaFxmczIyXHBhciANClxw GMUxQP0BEXOgFPxtAYz7lt InTZCtJiPuKOIpD06ea7VF x1DxVT0ZVCm6ynQimbewaG 7zYZJvzbMrFUoEmCNpwO6z crXLUGvhGRIlA5LhngDrJS oiCTDiar9gfQfyMOoeDeKn bGVkIHdpdGggdGhlIHBhdG kyiiIjL0D0mlIxNG0sYAMQ CWJeeH0rICGzPKXla8WpuC OepGurV0ZtiCHrZoIjy0t7 mTB4EMWyrkDoMVQxmABkWE Kmha1lRIfwMvDjD9P8FQEx BMOgj02chXA0hpVjEoKpvD e9ePAjFBC4BQ1jqOjyiqQr b8m3sR0rFIKln4D5VOQgz0 G6RQBuroUzoMTvqJWdTXOi DF5ehqBlJH97BFRzLNizFS quGGH7UMY2VQXslFSab6kz yzaqCm2bVNdhCH4qTQkcFI 72DIHaOOrjGHIuU7XuK8J4 MJcxMTSdUKWazJZwqM7xxy ZxyrRumPn3IRAlXNM1gMKg zKwaNTMgEgpbvII6IQRiFo PazmLyr3MajLj6uVDjYZsm EKGrcS3esW6nYBNoVBZvhm BIWhimLDNqVKhot8AfCBnq cGljWHNhMzAgDQpcZXBpY0 4sy1LTd9Qty5jhjRqpr8Yd fZAjEP9dlFAtXN3Ne7omMH MfuPXvHCD8LEqkb0lzIBew QQE3JUXnUdFcXDQzGT4FTp UzNPatZEn6SVipCQv2XNa7 EQ3TLtPnVAOdIby8GuI8Cj AcLKn9VXqvJV3LDGJ1STBu MCQdTRjcQVI4YAOdJZt4PH IgXFxzcyAzIFxcZmwgXFxu N33ahYFdANswNvXlFFlxeB ncCXWcIIT0XQ8OIEPlBpCa U1VLE2rCLU9qEakmolMlKL FxlzYBKigoSDEoML3BVMVh KXgrCRt2ozLpWVBaJtKjQZ IqI34qi1JFl4JcWF1PPQq3 vfBsdsmliG7kILPhgcChw7 IzMFxlcGljWHNiMzAgDQpT cPAwzX5rtjOHKJqbEXKyF5 DjqiKpSCbkQSQweh7ziRvq IGxhYmVsbGVkIHdpdGggdG vyTIOdlBdwnzTfH7M5elBo MN5fPDKTRYPdrT2hRZKxUW GcYEGdHELxaM3cTQP2y8Xa smJgOWIOJLWpxStbCT84jL BjZWxpYWMgZGlzZWFzZSBh tjCyxuFbp15ipgGxq4XuKZ 4zpDyaMBbSPKseFjDpEL5k TDJlneRcq1YcQA2sDOZksJ BxTLErrairkZOqJPt3pPZq SENtUyUlfWltp7CgVEGmWU kiWD57jmOmIL2aRYydXT3t UKtlKB7wACXiOYYdKZFiRk JzjIFaStVhdWQbMpJcM73l YjUEqFDds8LdC1hwEH7iiH JfKpuemVZuLIXwfNflm9Oo yEGfWFHio6ZwcCVrPHvtOG 9oWNF0Zj0ptGIiMXGmzgE4 j0FhDHemJQOyIrhvHROoLZ nzu0CcBDAlxPBIc0EhXK6Z XHBhciANClxzYTMwXGVwaW OIt4BfWMWYNhpcrHczRsCg pFFjWqE7SGOyeBHgZAR0MI 2exNupVKKkJZb5EWtpRLNk C4OjJ0KsDUicNfKoVYwbFS GeCSOyTTbqYGBdR3YKRJIp USG1JvOpQTHoWJm2XZmhB3 TLBUJmTROwTgU5IQY0HlN1 ZKl0XRQPFg6eVQcyXsOxRN VgSgZ7CTl4CySuWYCxOfVd KUFlIIBrARzdzJNlDD2tpK umRLJjLFFyATC3UCMhtAMO t5WyUGLkLFxbChYoESRUIO BXQA7JRxWYBPVnChQcnEMb ZK1OIEDuctJhZCszfKzqxF 4tqPNzZ4meNxQyApwepGef TmVzdERvYzEgDQpcbHRycG FyXGxpbjBccmluMFxzYjMw HFIctPYYi6MvVTYBXzMaWH NpbWVuIEMgaXMgcmVjZWl2 DOAibH6sLh8yrXEidK1xyE GtIRakHFEau1d1nBF6cCQa lMU3xGTuwOwiCcXuLG2gbO RmMGARIA94iOHtklWwQVPf eM3mJMUsOMWzIFR4phvzVU WVSEB7rJGhh5D5BPvpNLC1 fJ4xcGqdLlYhX3Q1ERHaCJ Kbn06ywQY2jlVyUaWiMGTu ik2sdI5wTIunoxSqyJcgyh Jqe5K4WMDxo0Z9MOTslnId eZPanABtYKZdFtI5QYZbMz M1FNYtMEIhjULeRMDxSK6r VGhlIHNwZWNpbWVuIGlzIG OduLYkulPsZFNihm64G4hc SGPhlS5es0rfGoRuJZBpCJ LhzQKsjVH7XGZstM1jfD77 kpWuwsUPYP7liAHlEZ3GHY NiMFxlcGljWHNiMCANClxw SFOpNYmop7YrAIyvgVuwJP ZbGvRfFEoZcLfbRFEDZ6bk lWQeEXgeQVGEGOiEM8QDHN 0AXSQahJRFMAH3JE4dFSjf UDDxZ0GfY0EibhP5g3ytyD akx8OjzIOoMD3cuPPoTC8O XHBhcmQgDQp9 Disclaimer (test code = [id number]) b6ertBCjVIOln1mnFGIzaE FuZzEwMzNcZnRuYmpcdWMx IEirtjGkSPmoz5TuH2HbJz AwMFxhbnNpXGRlZmxhbmcx KVNeUQZ2veLfFAFtZLsmQK AdXIskIx8epNMegSuhKaNl MCKoe3bbtlMZLYybWgUcO9 98SUEbHVcdz2lln9PwIHVd gFFex5R2JXVDflozzYw6wE ypA19as2R1CgjuH7eiHZWw AAWhJ6FwXV4zVOZmRgn0ZC X2TMC0EDSpHVUeG3DiIH3i PZSczIXeGZc1j2xnkPewCZ NjBLR7s9dzSLwuwnKlRS2i px3ghYc3y2iblfKdKMKgGW EuwDDUSXLdF2AezRilLn0p tPb0xIvhDoqrCDN2Zsk5TV 4nry34npt4iWxfBLUxjyql TwG4WJwqRATxxszrSTx5ZT nsWWRqbQB2EPNoiUVtE3Eh BCPgAU9adhv4BGK0NXvtLW LzTgR5LKVzsJEaUGRetOzk ZEwui180UDJ2RyJjHJ4eA0 Qxs6E6dS2bzMMpYZHkaLPr EwSxWYSyvh3osXQuTDrbj3 JuLAC2kkU3xBGoeURdBWGo KI53Kknlm8DbHzyda5HeG9 5omLP2NGknr9rlQO0pKiX5 lwPePTkmp1xpbA7aZsB2IP pySE1pZX1iPVRheI1qnlzp XHBnYnJkcmhlYWRccGdicm XrNx8fcSzlZQZ5QRjoA9ef zV8xQbL6NUsqA8empV5wMG w3CPdudUO8JKNbtB8mXZ3m mofjk7afNZssWUozNLZunv Q9eqA1VJVqtAZvE8QqqU3n KFZzSM3frbduh3nsEDA9LS qdSVVnPNR3GzYkJPYnn0Mu cxw8HoLqh8VtbULkPHzmC2 0lm270VSKthgGiS1ewlAUp nhtwxVCititkLGkqkwX4PE NzmjXyi4PsSNAnPZH0MEci KAyggGKyQDMivBscb0lgJ5 RscGFyXHBsYWluXGYxXGZz MjBcbGFuZzEwMzNcaGljaF ueNDqqLmQwBTXsEUmzB5sc LrIdE4LhNHAfOdShfMDdY8 ggVGhpcyByZXBvcnQgbWF5 JKnmC7d3JLPskfUdaTe1fb MgXpSsIYMrALT6PCmulNBf FZHtm1HdqnpjjOJkBu7ueC XlZSWcgO2gIPUhYXZlSIur KE9ouTw7XMRFrDNtrTMiCa AJBQZjUI43uiUeAPMRauzr n5K6DQufBEXgu9KtaWOeN1 ccy9UhMCIsc03yRW3zo0N8 r1hwDVJ9XO8ni8EiKXSgnL DwhZKsAKKtf6Ttokfvv5Lm IGDsmmWnq9WcEQVyhwQomN VeQSYjniBpgw6isuGqSIRq RHGnG5TdcgkacSyiqtDnPJ Zhow4xjyUkYXX5WNWFIFZz GCCcy7MuxX1omHWMZLJ5zJ Mtfe0mbbVYgLEfNWYszr23 CESoRJ0tU3lvXQQqBWOhrn EsqDFhy0ZkGTImtAL9pPUs BI8FKfXFn32bCNFcYLHQiq AvYKEaaPqwwVA9gxY6tC5e IChGREEpLlx+IFRoZSBGRE HxIO5wqpMwf8IlshCdgEdk LSHhqARbi1UgjKAup6YpkY fxu6BulUFljSJtWO1jIVLu clxwYXIgVVRNQiBMYWJvcm F7s9IfJNIdZOVgVRY6qYmy ioo8CKHfgO4bDDPpO5tidr pnYPlwUTIce1XvrD1wnRBB rNQjz6HarHGyoCUBlCJtQP 8ruwTwFSqSMYdOBNO2zxKt RKYeo9OlSUpoU4crD67efI dfeZm5uVY6IRQ6vI8gHja+ IFxwYXJccGFyIEFwcHJvcH YrICDwdYxttcFkK9NxwpQt nC8tjATqcrXeKZ4fDK7uC7 U7oZJeAJUcspPpa5ycJPbr dmUgYmVlbiByZXZpZXdlZC Wpg4AbRXouMPH7ECjbayNc bmNsdWRpbmcgSCZFLCBTcG ZpjRHzMCN9AEtambAeizLy AR9hxW7leEqsvD6nfZJdaQ R7xskoOHWkEERrnGjtXZUk YT8wdSqinI4jXnBjHaBoFJ xkOS9bYVWbY9edmWTaSFDx ZLCfO5acHhZwmS7qdKakLF xjZjJcZnMyMFxwYXJccGFy XHBsYWluXGYxXGZzMjBcbG FuZzEwMzNcaGljaFxmMVxk TgTmVTHaDRyxD0apDgTdH0 GnNVCuIfBknFKfX1huHLrp TPI6BXLzXS2kwSDoOL97tQ Xli6lzBMgnqIrmpa1qT10r cIPvJQsfiPdqRUEfw38xl4 KlRABkflMucd6nRJEjalQ9 mX6xJXAnuWyiWDLzpVCeOU Txg5VjJJizyOCubwXwZJbb OKIzAJTtlWYdtjF3ydDvoq UtnwTwBYGdsFumZXJig4Pd GSFdDStyc9Ntbb4veAElEU GuxdDVvHyncLPfpJ6sG0Qq HWRcDTGalf9rRBEltY8bGX vol7OshqflZCQkKESrEVUx paKxzm3iIDHbiEXCHA1OJY otkKQog2GxmoXgH1bEUNE9 NUQwNjYwMjgxKSBleGNlcH ThNOZdxh87AFJbwD9dzSfq YVTtsI6quH1olWqqbL3sRk NsDqTpAZygOC0tPZUxR1zq uIUoCIWiPAZcU5xpZgSvqF 9jaFxmMVxjZjJcZnMyMFxw YXJ9fQ== Embedded Images (test code = [id number]) [facility] DIYH6710-[facility] 19:23:05* Test Item Value Reference Range Interpretation Comme nts Case Report (test code = [id number]) Surgical Pathology ?Case: [id number] ? Authorizing Provider: ?Dominic Keita MD ? [...] HPylori ? Final Diagnosis (test code = [id number]) [id number] FuZzEwMzNcZnRuYmpcdWMx YKnitzDeJBenoFbzRIA8JI IzTK7ohIvlzUl9aFvaWRCf nsN5aHQcQMkez9wuUQO1z6 xtmfqaFMKjUXmgVg3fhVGh cJroMdTkCNJvLOj7pD13AT YkaR2lwIEfEQh2NCFgsICx rrEsTzSkNSNoyJQdmTQ0IC ReZB2smndeMSmkSXvjZWTo brE4XDOwxEHpW3EkVKFlWI 4cfszkFBA1QJiwEKJvMAH1 UvAjBTVpz7Kynea8AeJjtR FyZFxwbGFpblxmczIwXHBh qsCMDvVAUX5TRPIHKSLRT4 cNQPJJKH2OMFERSujarVKk TYEmJMCwVYBGLL8UDCOxK3 zWRxJxBF3LJXXvSJPllJPc VFMohfTSJxPFKJ7WVJ0IMW wgQklPUFNZOlxwYXIgICAg ZRJgDItFW8HBMGZkRYAQG1 KUOKbTPVnqJo4yRQXFTT3W M1aMJ9GVVCXKIY9JFJdvHZ NkNDDgUPPwPS1LNFisGDAM OY1FROTFZYXALAsUVLNZLF PLZHuKOHPCH7UHNBdQTAGg byjrYMCnCe0zM9XILUGZVC wgQklPUFNZOlxwYXIgICAg MUHfRGZKC1GHDrEKVQ3AF0 4TIQCAIVCDTF6YHQGYEUaJ ZB1CFLEJUASGECHCR3YskB FyICAgICAgLSBOTyBFVklE MG0WOAMWGpNFADhXHWMxNR lTRUFTRVxwYXIgICAgICAt UB4BWIezLZCXTS5RTDEARz dBTklTTVMgSURFTlRJRklF RZJLNVVBTT2APk8LRXAKDt xwYXJccGFyfXtccnRmMVxz g9KmQ0IoAzJsPFvhomRcIQ WvDpskxlnmCEPwAOX4yeZj WKYrILtdYWQvJBlrHf4deC KwuXvvJyNyDRIct2oinrDC IWllZnPxX760OSHeNMbjl3 rig5YqQGXteKBce2T3OZHM kfdeiCl1e7ceSjBwTjQ8jN CyPDmcA0dxltFyhJNeV8Xe tZWmmAz9pIdpX19hi4F6Kw pqU4kyKOPeAUFnN5HyWQ6q QVZmRvc6QHK2JSN5UGWkYS FzG1QlEO0jLAPrtLXgOVc1 y3wevXpbUGPeQOM7s7vpYM krrxM0UL7anw6fkBe3b0tb czEgRGVmYXVsdCBQYXJhZ3 EoyRajYv1rrVh7iZrdTyam YYV6Nxh5RV6ojx69dgv0cB qbRYInmhdrLxF2SNpdZKPz pgmeWMb6VOdnQDRrcZC9CH BkfLEnE6ErFWObTH8hlfc7 XSW7NTktMGFkSoG1WDUnpL YkBAVobEsuASqrv393DCR4 NtJvZE7fG1Hov7R7jJ5zuD ZqCFXqvHLbOeBuIHWtib4h kZMrHTuvx0RcSWI8uxC1kG CorSQvYCGfJR96Rhcyi0Nm ScfcQHE1GGPxtzYxm9Stp9 usAaXildXbH2rwZ8IeBBDp YSOqWQKqDqVoeoTju7Jdu5 UknFYzzAn3s7ebHJGtULBv kUrkt2upKMN5LKYeA3W6mF Omp5efFLhjUPJhdCD3reH5 RHAggEMxE2KsjL5oFFIgCG 3qgvr3i9mwLQP8DVtqHNKn XzR6wuX8JTHqwTUyGREkbS ugNIfal621ZJF7PbEkQTUb k4RpC3GbkCzwJ26exUhxI8 2cCRCqeVhxnH0lrHyegQ2f ZjBcZnMyNFxxbFxwbGFpbl xmMVxmczIwXGxhbmcxMDMz CCrdB2grGrQhWJXfvMjpBS qmp1YjOZQeRZIkYzzzvcNt XHBhciBJIGhhdmUgcGVyc2 9uYWxseSByZXZpZXdlZCBh qIlrj4LgJ0rrJP8mS0MfyJ YpukCwplLuYOsrZVSaj3y7 iGHqmWaik7RaqLKiXD39xd FqSYVbNLY8KINzs7viAY65 gajpYbRprW28yuRmalGpZK Wlg1pbN2sdgAHwl4Tww2Lk qkQvQTjlv4LvRP2kcCBjfk xtoKM4WOEdpDBposAqaqO9 jHzxMOFakF6okK2uoSqhiX 0eBaOkPuFhYJymGZ6pGYWt T1lajXYwIAXwZQNhB4mqHh EjqO8rnFbfXvtzykH2KDXm cn19 Clinical Information (test code = [id number]) Shivani Schuler is a 47 year old female with IDA1. Gastric polyp x 6 r/o adenoma2.Duodenal Bx, r/o Celiac disease 3. Gastric Bx r/o HPylori Gross Description (test code = [id number]) t4yyvUNyIIZlgSBBAAZ0HB WtGQ5uhNulmBa3pYubUEHc vmA1aMPvDDrov1cmEJN5y1 fsfnEBJppuVXMdLY2sLSos VFUsWD0aVhWcFEZjUaBnUZ BhcGVydzEyMjQwXHBhcGVy zFN1JOTmBM5zsablSJeqJO vcWWGdtcR1HFPsbOXkG4Gj YTFvTA8ahvllVWV9XZEEXg pgKg5dcOWdgPyvFeSiZaOg YXJzZXQwXGZuaWwgQXJpYW k6uM4TWsudEYG5IGGURkfn CelapZhxv9KquOSeJYTlHL xcaWQgNTEwMDAgXFxkYiBP WhBwDcA5Iqc0LBK2FyA4PJ w7ZDIZVQCgOkdkZKF7FwM2 YQa7YGEhOV5yYGexxAKmES weTurfOUwgQ024ZIwjSQEk D0DcG9DaPIinGnHdVCwiPF HlORRcWXztNMFuR2RRYTQg HMM2XcViMKVkFLk9ZSweG9 WLUYMhRCJyWcA6OLDxRnS4 OQh6XFZMPv3sSLnsEkRmVM h1RAY2HAh8PzJcGBCyUhOt NACoNJBfERxprEMiWO4shX azNXHfOJ2FZEMrXUepVQEj RsDkT3PYY3tBPF4cJBfxtV JjaFxmczIyXHBhciANClxw AABwBI4RQUJaKDeiXMb0wj DbONPxEkKaMKCmQ44ka6UV u2RpJQ1MPEq7qsKujgcpxF 2oWPWfgdPyJTiXnWOzqV8s eqONJOezCLLxV8CdivUlCY duAWJkyh7ioDiuVQdaEgNf bGVkIHdpdGggdGhlIHBhdG qhdbQuY4E6ahJmCC6bNJEY OHOpjF1sUOBlHTYko8EffI AtcXgoS8NriQAlBgBfc7f2 cEK8GBGevaUyCXOdqAUnQV Kbad7pDMqkDyYbE0A4HLFt TCSqb89vzBX7dmTnYlClvV t8eRHrVUF1DV8tyLyfuiVr p1f6cL0eSDMob1W9TNHcy8 U1TFPgplQcuALkaYTaHTFm DQ9hiwRdFG40SDKlQChiAJ lbHHI0OKR7BVBihZVjk3qb bwxqJl8aLNpcSJ0gGRltAJ 78NLBxWPimYWBxS7RtW9C6 CWwjZHIoXLWvwWUssF9yww UweuKrxKb5ANRlJIF5xGJt jOugQQUcOonqdRW9LGXvWl HideTxu6GzgDp4wMQoYCem WUUrjJ3riV6sXYIpGUXctz LOZbatIAXaDYdyb8AoITpu cGljWHNhMzAgDQpcZXBpY0 7mx7JMs7Oes2pilOcmg9Ye hGYkGJ6mvZNlMZ5Jf3taWN NfdYPhLYB8GHbsv4nsNMhw OFU9DJFyToNcRPWuBT7YQs BuZJheWMq6KCtrFDw5ZAx5 WJ0MRpYqIVZiBcr4PoM4Fn WjSJp6VYzpXX9VUYM5NTPk LVHfQRthIKL7YTZvIMa6EA IgXFxzcyAzIFxcZmwgXFxu Z46weHGvPNlrZlPzPKomsS nrLTEyVUC3NH2VSTDdCoQb U0QCY6fFOI5iMcoebwTsXK KaasHLNkurKJFlVB3BPEBp XCnfOHa7imXgAVSiNcWuJO IxX57tv5CYy9YeGY8PNVk1 gvSkuldaqD5hGAOlhiGsr8 IzMFxlcGljWHNiMzAgDQpT vVFswV7qfdDAVCppFYVxL9 SibjMeWJvgASSrdb8zpTkz IGxhYmVsbGVkIHdpdGggdG vlGFHzuAmwcnIyN0F6ezJc BE6zEAFZDSRovU7wWUAgOJ PfOAQlWPVleY7cCTJ7t8Cc bwKmMJACLGBecAxkKY61qQ BjZWxpYWMgZGlzZWFzZSBh lcZrheZmj37ifjUyj1HaLU 1ndCucTVpBTBsiQcTyTZ9i ZEOoiaFrd0AhCZ1xBPExsD DjNALzkogvnJNsVNw7fTLp SCIgKcDhxBzvs7ZsGDSsPA htVK37zsQjQM2gBMvrMY0c DVhjVN5tATHoVLJwDERpIo NqjMDfKyXfuSPkGmYlA67t ObFBhRXda1XfS0wlFS7yrR HbJxsgrQZhLLYovRpbn8Hp eXNeWYJzr9FicXXwFAimHY 0hJPV4Jd4mlQNkUPFixpY0 r5LqGIzrKJCiHjkdCVUdYV kqk7DlNMElcAFAi0JlZS0Z XHBhciANClxzYTMwXGVwaW MKb6UuMVDUUdkxeYcrMsBp aOTpUbC8GEGymQIjJWC6HZ 6wgMseJQAzXLn2IPxeGLKr H7GiX3JzXDopIyTzPGbqVQ UmLLQjLTsyYJMlJ0HJHDXd NLB9RyElDIHhPRn5EWlfJ5 LXAESxMZAcCoI6FWQ6ChV5 BYk5VDUNIv6mLDeuRkUeOZ NpZjC0VBv9AvNyYWSlKrSt VOSvICXoYYcnnHOoKM6buM ytHYGwOMBlBZJ5SXMmoZLH y3EqMFMuPIfkMzLyIVSGCV CXBJ3LTwBZVYAtYtAasUJe LD3RJXPoroFrPTbyyVwjlO 4sxGFmQ3ttYjAyJdplvRrg TmVzdERvYzEgDQpcbHRycG FyXGxpbjBccmluMFxzYjMw DBNfhLFKp2QkMYYHIdKuEO NpbWVuIEMgaXMgcmVjZWl2 VQMtfS4jUg4htHCweI0pwG EsFHeoYDFlw9z8fHT1rSDe rTU1nSVjyVzqGcIhEI5kdC KwTENVWY76tMDciuGbEIYn zN0nUKIfXDJnBTZ5hwsoVY JUNCB6hNCuf0Z4DWkdSEX6 dN3yzOumOkWdR5R2AQOdCM Pbe94dgRU3mrWlDrErFYXw fm4ywS0xCQssxySzgDuxtl Kwq0G4PMPfw7E1XCMibkLt fBHczGPmJUOiPlK6VXJiWl C1BSQgQPGkaHCeWERmFK2m VGhlIHNwZWNpbWVuIGlzIG VhuGBjjfBuOVOfeq92L1ia GJFshF6kk5zfBxMqOKXvGA UmlNOoyJF1ZGBlgO5uwY32 opCxhjVYFE5nqXIoGP2YRF NiMFxlcGljWHNiMCANClxw JATyIDxcm1EhMKdauOwcJE GdScWvDMtLgVtmWBQWB0gx yHHgQOpnVTJDJXkVC7IFOV 2RXICroYHESOQ7CK3eLVnw MXQqV7UkN7KzjoW0m3codW yyb5UdiXQfAD0wpGZhNY1G XHBhcmQgDQp9 Disclaimer (test code = [id number]) e4fisHQxAJYrr7zgMYGgnO FuZzEwMzNcZnRuYmpcdWMx UJclcjBdFVwfc6FfA1TgXo AwMFxhbnNpXGRlZmxhbmcx DBZkLKA4swFwJSGjWLgkYS SiNHkjKi9gfQTifZgwBqAc KNNhw9lzceQKYVgoFiRsX2 38AVMoMUcdd3mlr1KvOQBd iQGxp4S3XVPOqexdaRp0iD aqQ62wx4N0FrhzU7xoWPUo FBWiI4EaRS2xCYTfLfs4FG L8FKO9MQBpJSGxL4NpPO1i RJMcpSJpSVh9l4bxxZtqRH CuBEG9m6agRAyeexSfCJ7q pv8djTe1z2rdnzTsUYGsDE EwiFICRLOcZ7AtvKwmLw1o wPk3fIobCwdmORQ4Vsk7EO 3ekv54ajb0zXnkOEHgyngu IlP4CVotTHKtvbxePDa1UP kqWOCauLL4PSItzLDlR6Zb XJSoNP5sngn4ZXU7IPpaDY UcWnU1TUPjmFIiBOTiwEsh LNqwz366ZZU6WgLtDA0bL0 Jrl4W8lF6apERkHNPosYUd MoXzEGAefz4iaKTsOUeoa7 LsZWI2gwR1iOHzdPOjADOc JS51Xiozb2YtFjoif3CpU1 5gyDJ7YWjry3vsOG7hDkA8 veUqOQmdt7kquQ7xFdX4KA nqOH7gCO6cBYVhrD3smvcx XHBnYnJkcmhlYWRccGdicm FaUj5anBfsUJO9JTxzA3lg xE9kEdI8JRapP8pzzG1xRF h9FItkjRU4NGCweY5lRN6t jircb9jlYZiwIWocTQNoli O8czQ8CWVmzJBrT3RtxX8v UIOdHV4pcidds9dzTBW1TH pgUPTlITO7LuIpGYIeb5Pi tgg8TqJiz5HezTJaGYzqS8 7kp970XXNvpxEnO7rcoZTz ufboqFQqxwxcCOecmaB1TA NsatIaf2TfRUYiEFJ6ZWoi HOqinYUvEOIglQcmw8gfL7 RscGFyXHBsYWluXGYxXGZz MjBcbGFuZzEwMzNcaGljaF svCNecQtYeCZGqHZquS8jt UrBoL5XbARChPgDioMYcL5 ggVGhpcyByZXBvcnQgbWF5 BJlaA5x9MAUazbFyfLj4sq KbWtWmGVOpCKE7RFhomJWp CASdp3YghoyonYNbTv6ceC UoOJUubB1pEDRpXKUoXWcm BH6riFf5EVSUhURwcOUuNx IPVDUxDB21efCtKPYKoccb y8C2BWtvBYUmy0BftZKhS8 smh8BnAPHzt17tOD6on4P9 m8gsKFI7KZ0il3WpKEMzdG CtlETaXOEwe8Bemwarx4Zn LMRthcGns4SxAJPwvjIqyE UiFYYlgrXstc7lmaEaBBGp CIJmC2WmrfphfRtfcfSbYT Resm9esxVtIXL3LOMUCFTv ZDOdn2SfkV6zfYITHIB2zB Lnaw0vwcFAiLYbNIAozu94 WTTfWW5oO5hhFOYfIAYiqd IosXIds2UmXXTwkJA5dPWi EU1PYlBLa36wPJKoYFVFsz GhWIUduYqnxVZ4sxA5sI3r IChGREEpLlx+IFRoZSBGRE QvQI2dvxRkt5WukgHwbBhc PQPftTYkn4SiiLByb7BgjS lbk5LlmCUnrXUrET3iHSEb clxwYXIgVVRNQiBMYWJvcm D7r8PzNJVfSAWlTVX0qXcx awo1OEZqcD7lZWJdF6ffvo vyVMpxBWMgc8PhjZ9roLZN tQHxf9FigTFibHVOjUBrPH 5fxfCbTHuKLIuEMWQ5uzVd YPJgl0EpLZjlX2ylU45exQ sbhIw0dEI2ISU0sF6nYvd+ IFxwYXJccGFyIEFwcHJvcH KfIHUfoJpswmYqD4XwyqTq fO1xoQGvarZtWN5nWT7aN9 R1kELqJGYrglZdh0fxKDoc dmUgYmVlbiByZXZpZXdlZC Pjx3NlAWyxGXI1APnnevGd bmNsdWRpbmcgSCZFLCBTcG LmxCVbYAS3JVwbcnMceaHp GK6suG7jeWcfgH5bfVRjxL L5rjidJPYnMJDkrQufDHBe PX6dvAwmdK7xQxGfNvVzKY ljCP3lMCKgR8fleMOyLMHv TYJsZ9qqCbYvxY8tuXhwHP xjZjJcZnMyMFxwYXJccGFy XHBsYWluXGYxXGZzMjBcbG FuZzEwMzNcaGljaFxmMVxk EmGiOKIkCZkoB9wvPgEjH5 XbYYAhQdQubMOhT1ypUCfk OAF1YOCnFT5epTVaRS81eZ Oty9eoLGtiuLmbmv2eB52j nKFzJTbcqKjiHPGat24cp5 NnGYCpwuQdjl5dFZLdhrO9 zJ8qKQHalSxgKENcfGKgXK Qcm1LzZOvqeOBvguQxGHlx NYMuWSCdwPXjvkX1daYkmh XhhyFfUJTbjCxcPBRur5Gk MPVlHKrjs9Eiak0okQOzPR OhhlJIuKhmjRLxcB8cU2Vr BVJuLYGfoj7kFAGcpH3iVC jfs7PfmoyrMOJeXQKrRUXu hvXoae8sZYKdzPDENX6JAG bbtYWvm2TtxrWyB2tPKWO1 NUQwNjYwMjgxKSBleGNlcH ZsGAAxtz76IXXdjQ2diTfd URLxrS7hgH0fhIoymL2zLm CxWjLkMIcqPN2qETNyG4db sYRjGSSvBHOjZ9ihRvHmhH 9jaFxmMVxjZjJcZnMyMFxw YXJ9fQ== Embedded Images (test code = [id number]) [facility] [id number] 19:23:05* Test Item Value Reference Range Interpretation Comme nts Case Report (test code = [id number]) Surgical Pathology ?Case: [id number] ? Authorizing Provider: ?Dominic Keita MD ? [...] HPylori ? Final Diagnosis (test code = [id number]) o7ubfWHqPFRxn4afOVGwaR FuZzEwMzNcZnRuYmpcdWMx WBmebsBnTXyfuZyaCDX0TO NyLT9gcNvflLf1eCdlSSCf bjV7qGTaWTjth3jhZSG0f4 rnkospWDAuOLdhZe2ibEKs pAwmNwZtLSEtFIq8rH27EC ErnO7nqBEwCNy4KRQslOPa ywMmStSgTEPjzSYahEP2ZR QxOA9trwspJVrcGLknSHYl ivS7IJSnsVPwK8TvSHMlWG 5xtfydOHM8LOpnWQGuGAV6 DqQsCUEaa1Itzzx6VvPypA FyZFxwbGFpblxmczIwXHBh beHNMiGPZL6PGAIPHRSMC0 aGPMVYZO1KOBDNAlimfKCa JSVvTCJxTBOGUD2PCOLbW3 aSYyWxVC3JUSQuUMButPSp JGOylrBUKcKJWC5RUS8DTZ wgQklPUFNZOlxwYXIgICAg BHPzJFqCT6ZINXMfNRRIT5 MHVXvLYPwcEq2iZXDUXE2F N9xKN9MQUTQUPV1ALHgoTU ZtCLXlYJTjQW3UCPkkVIKF ZH7AKKNJWZPYTMuHMVDLLK FLUOhWCTGPM1STNGaTDVPg gdkoOZRlRc6yR1LKNQNCYF wgQklPUFNZOlxwYXIgICAg KILlOINYA2MZRbBHLD4VC8 7ZCCALXBDLOX2FOEXMFApU RG0EPPRGMHYOIBVNZ9LmgG FyICAgICAgLSBOTyBFVklE WH9OPKMIDiNDZUlPDVVnTA lTRUFTRVxwYXIgICAgICAt PN6RJBnlHLLSBG7BOLRRUi dBTklTTVMgSURFTlRJRklF HLBCVXHPWN4AJe0AHHNCFr xwYXJccGFyfXtccnRmMVxz j2KqR8VdJpKoOMczlrZkGV DeWafpedgbAZYaFLX6kjCc DIQuLCscKSMfRJnbMi8iyP ClcDwlYpTkOVEpj9dtblYC OGfkIlXnP464GLGoASrwa7 tyb2WsCCSauRXsn7Q8ODAV kolcwRm9q2erOwIsIwP3wE GmXNraE5zacqZqjMMzP6Me tWCpnPp6lZjvE54eg8J3Ok zdF2rwQCKyPIMaK1CqGK8e LCOfTmo8BBW4JFO5ICIjHV DuI4FaPX5xXAItcPQiMAl5 a6tbpFjsNFZpTOI2b3ooFG lyhoH0WN7soa6jlZn1n4kw czEgRGVmYXVsdCBQYXJhZ3 AkhAbcIa7bpFe5qLftOnhn IZZ9Tba7OP5bwl29hnh3zY mbBQSoasgnNkS2QWmlBGDf uabjYUd7MPmsLDVqpSU9VP XagZBhJ3UzOVFaUB4wwej6 YBP6UMivCHQoKrD5BBCckY HyOCMopAfyJMsml583UAW7 NsVnYD2lL8Trk0S8yS7pqW TzLLGcmVXyAuJuUYHaez3v uZUzBIgoe5XbMOA7buQ9fP LwuKXkVYGeKD24Fxjcy5Cj NlsmTQE1FIUuzeZdk9Oad2 esQjPrveZpU6oeZ2IsYVTe SPEmBQBoOnNarrGmo4Grx8 GxlFQnoXj1t2mlUBRfPRAe yZalf7slYCT7EKCcK1L1kG Syk7mxRSddHERqdDT4bsU4 HNPwtHStW1XqsD5qVGPrGH 9yhtu2o1sjUPN1VOgsYPHm BsW2egU2KAIntIZrZDRudR dfYAoeg723HJE4TvJgKKZm d3KjO3EjtRbgO92xzQvoF3 6iVSHjiZecgU8amYjblJ3c ZjBcZnMyNFxxbFxwbGFpbl xmMVxmczIwXGxhbmcxMDMz OHioQ0mnTwNjDBIolIrdLJ wpk5CnSXGyCIDbPwhijkJp XHBhciBJIGhhdmUgcGVyc2 9uYWxseSByZXZpZXdlZCBh oUtbn8NdZ5uoKA8tV1PniI RbxqYshzNrIUeoLFVcq7k9 lTKqmUrtk8TofPBtHE64bf HdQEPrTUS3UFZwa9zqIC48 vnylAoLqzD89kuRnsmQnII Nki8vpZ3swiZYgh7Clp7Sf mvFuZEcri8DkLZ0krLFlit vguPR4UHEkmMLconPtawQ0 eGrbBTZghM1hdJ3kmWivzY 0nOvDvZfDuREnfCF1tJRIz U7kejGDsOLXgAWHvS2zwNt TjvO4tnBxgOuluhhM8RZCg cn19 Clinical Information (test code = [id number]) Shivani Schuler is a 47 year old female with IDA1. Gastric polyp x 6 r/o adenoma2.Duodenal Bx, r/o Celiac disease 3. Gastric Bx r/o HPylori Gross Description (test code = [id number]) d3eiqYTvXOUjfPBTZFW6YP AmEF8agVmdqBy3sKdeYULh ayB8nHUgDOsgb5wpQOT3f7 vgeoUYJvteEQQoDW2rBTxq GSNvQE5eEaBjBPCdXiSlAX BhcGVydzEyMjQwXHBhcGVy uSI6TFClQB7zuwicQLdoCB nwHAGgrzH9TOTdcOQgC4Or TKGuGA0jmxthFKX9HPXXWc zrTf5gnMOxdQxlGkBqHwLa YXJzZXQwXGZuaWwgQXJpYW u6aC9UCykxBUU8AOUHWadi XxqpuUpwm1WthKNnMXPfFH xcaWQgNTEwMDAgXFxkYiBP YiBqMiU9Qry2LRQ0CeM2KH z4YLOJTKEsCbaaSTH0QgI2 CFq4QJQkYI1fFGnmxXCqVX rrTcuxDFanL847LDaiVBKm L6AyJ7DkWDkdNiIcGRhbQJ HlENVaNZnjNUTfV7ATQSOf NXS1RtEfNXQyEHj2ENmpZ1 HQPCPeTZHqErW9PCNzOfF8 HYd8IWIIGb8lCKjwYoYwEZ m8WEO9PLu0LwTeIDSfEzFh RYOtCNHdPFcraNLzVS8zxS sgVYApBG9MJTGfWCyqQLHk QkZbB8MSB2uGCT2cCJtahP JjaFxmczIyXHBhciANClxw MKRyOA5BUZZeLGvgSAe4rd FpMGTpEgIsBHOfS39vk3OC f2DiOB2YSHh8cwXumxbcwQ 6vNJDdluNiJAnCoNGfoA9w neHELEitUDQvA9HgttPoVC zyEGKtvs0tnBacOBqvAwFl bGVkIHdpdGggdGhlIHBhdG nqpjMnV7T4hbRaZR6sYZAP PKFmcG1iIXJdAGEhi2LxtL GeaKamF0OvrYGgVxRyc7h3 gIK7KRZkahHlQPNsnMPwAQ Fcad7gEKogHlQrW5R0CNUv WVTxl90spCN7faHgJkAfaP x6nWBwHAT4XF5ohUxlhrLr a1n3lD2bADTjr6O6HHVlf5 D4PIFsasEiyNItkBKvNVAw EM8arwUxQT97YDMcYPngSL ogIYQ7AVS4RRVsmZLix2ga dwujQv3nQHtsMS5xJNugBJ 93XQQsPNvvJWTzD0JsR7K0 KPspZANoWBWriLZzjB8rqk LbwzVvgNg4KOOyXGR6aPQl oNqxXCEoAueymVZ0TNAlHe PvyoOpt0MkoHz4wWAgJUnk CYPtsB4muZ3fMEQpQJSmbw CEFmdlKBXuEVabf9GoQMoa cGljWHNhMzAgDQpcZXBpY0 3lr8FVh9Bgd3ancMqbu8Du eIToRR3uqLFhWC5Rv8brQF RaeVJlKDO5NOucq1sdOZan LBE4TEClVrCjTYXhLU9JCu MyCQuaQRa3BBuxVQq1IWw6 YS8BNrTlPNAjNwd7JwU5Rn LlFDx6FClpQR9CNHY9AVGh KFWaZJfiQGE7LPTdSTv5DK IgXFxzcyAzIFxcZmwgXFxu M27syPBgNGsuFrAsDYvbaN ijRRQcWCH1LQ6WAVUeFjSz H6FVJ3xSIA2wKlqvdgQfHV RutuYTFkeaDEErEH7WTQTm IHklMIj1iaLfQAMgPwAnRS UvT04ma6EFw9BtMV9LIRo9 lnUpchvhcT7gGYHdqnOeo2 IzMFxlcGljWHNiMzAgDQpT mTIniZ5xqkATEWuhXXPtL9 QpmrHiVGanYBFjjb6ozBkf IGxhYmVsbGVkIHdpdGggdG bgHDGadSnpbpCsD7M3tyWn ZH3qOFLLPZIceW0rRLBiND BoKTKoBJAelC7jSMC5q8Da riEnKDXRYRZnwUbsRB35bQ BjZWxpYWMgZGlzZWFzZSBh yoRetpOej55flwQfx0AjWC 4ifEfqCVcJZEmeJxNaVI8t KCMuqcQak1KzAO1aGYJpvN QsKNWcwyferHDvHIr3iQZl ZEVwIyAinKtro0MeBOZpAL ggIH02dgEvNC1kXDdkSM0c LWexYT3wAYLaODUcOLDqTg GxiWQkEcOwpOAxWcTpD27y ScRMvGZqg0KlO4nhAQ4rbC GsNbywvAEaBYWwvJpld1Ht zMBuWURap6PlcCQwARuoII 0rFDD9Is1bgJYnQIRfcdV4 z6WrEOkyNIZoQozlBLHhSU tnz5QzSPRpeGIQj2RzWI8W XHBhciANClxzYTMwXGVwaW EJx0BbFOVTCvlvwOwkXoBs aARrGeN2QSVnjXKtXRY9MB 7ipRxrMGWkEYv0MQbjDEFr O6QeI2MbHLihTfOdPUsbLK CzJTOjEEwdLAJuM9RKLIPe PLH5PcLxIZDiEFy9BBibD4 SSKAHyNNAiItL0RZP4YaE1 XFn6QOIRHb0aCUacZaQgRY HgApI3ZEj7UnSfKFKnIeOi EJMfKWKbIYpqqMCqIZ1bvW qnWXTpHFOlAHJ3XMGegJXP b1JxAHSsKFurKiVrNWRIPA MPWE3XBwEYGBKjZoOzaHZt LD4WLXKyoeAkQYyotCmevA 3ofYCgK9wrLgTpHfypzZha TmVzdERvYzEgDQpcbHRycG FyXGxpbjBccmluMFxzYjMw KTSatVAFl1OuASZNReXwID NpbWVuIEMgaXMgcmVjZWl2 MNAsqT2lXj5tmOYdhH1qsS NpLPmaXQGsj5a1nCV3pUQg bKO0yWSnnMwaGiZnDM7pmW QvEUHROK23kOYaizAmZXDa jL5wVINoKVRvSWH7ejhiPF SAELE5pXOnl6Y2BLhuTKU1 jK0uvNxbTrMhQ5K7ADEkHF Qss42nhIA2imDsIvTmMDEk tx2bnN3zGZtavvQqqEypag Xco7U2HAVmx1U5XZIfwnDb bXXmmIBqPCUnQdV5XPCgLl W9JOGeIAXnxKRjZBRjOO6w VGhlIHNwZWNpbWVuIGlzIG GouOIflrYcFWSaqm67Z3vt ASGcvZ9st8adQzPfZJFrYM IugMPcjDO6JAPvjU9trH90 ddAgjgRGEJ3zvMFqCA6PRC NiMFxlcGljWHNiMCANClxw KOLhYFsln5DxSVvgzXdsCU IkEuDvDBdTkOefJGYPX9qe wVKkOCbaWFHXJRoCI0WROQ 3FSLKjgDAPWLD7LB5zFLbi JSTvA6OlL3DbcbT4h0gnvR qca6ClpHOeTY3bmDUtNF3O XHBhcmQgDQp9 Disclaimer (test code = [id number]) p1dnhPIkTHVpk8cuTKKgvU FuZzEwMzNcZnRuYmpcdWMx DObzxjMiHQbac3NsL5EjLh AwMFxhbnNpXGRlZmxhbmcx COCiFHX9ayEsIORsDAowVC UeOZtdMl0ntFUmiUpqFqBv WFRif5uatoSTAQxcXeVhT2 88PPVcQRraz4rru4UxHEDe hCNeo5O6DYIYtwfarSo8cW toR29dx2H5TfsdE3pkZITi FFWaF9PxDN5hPEVvRpe3TK H9ICT5UYYjTYYlJ9ScMX3i IIUprPVnGQa3k2eymBdaZW HpFYM4p0nxYLplunJsRR7x ip6lgYy3s0mqjuLxGRFjQT QsaUMAUROeD0HsvUztRt0g pSl8sLvrQehpEYD1Jhu0OM 2pxs59nuo6jTstPXWpdlsf EmM0ZDebDWBkaotpICc5SD tnOQYjeKN2VANetLHaB8Ua JCOxYS1owsm6DKK1BOjkHA TgFhA6ZNIyyLNvHSDytXzt OQanz761TRB8CzYaYB0xQ1 Hef7I2iH2fiBAnVJSsjFIz LsGqNYCqzo5eeUHnDVvlj4 NeEKL9rvS0rLUbbGQdJTCt YA91Ybyrk0VaGamdh1JxK5 3wsKH1RVxub0piJB5pNyX2 abPhRWvrl4lnuJ7yYvK1NY vhSD3uRU6dWLPhrN3xtuis XHBnYnJkcmhlYWRccGdicm GrHr9xvCrfYPM1ULoeE6bs wV9gFnP6AUadF6hmdR5wEW z1VMtvuHY4ONMydX9qEV4h ykbpi9pfTAzsWVhrFOMwkc N5efB8SMHrmHCyO5AyxW5b YABmIO8fhzelu6zhSTT1CV niPXFfORZ7WsOfSNQbr3Xl mnz5YlCwb0PhhQThFEahO0 5cl980SKPavbRaO6alvYJc jaxjtKSvimpmWNrzeyR3NW PlsiPno7VyWBKaISW9QHvn OSjsaQHsNTAmkVaqo4shW1 RscGFyXHBsYWluXGYxXGZz MjBcbGFuZzEwMzNcaGljaF gfYDivSsBvZKYnATyuH4sk JuGkJ4EmZVHaSjRgxNEvT9 ggVGhpcyByZXBvcnQgbWF5 TFojA5z2ZUZpkfThvZp8np BjWdVjIJCqIEC2RThkvXWv JQEjy0XifphshWQzMu9bhW NqGATjeY6qHARcUIQzBGnb FY4uuQi7FCFDgBHlqEUaMw OUSIGwDE65fcQkOXICxaqf z6K7RSpwRWTxj0QprYXmM3 huh8QxJPChm29dJB3oy0K4 k2vgMIY8EI3vw7DyYIIzvX DnfYYzIKCux5Sliourr8El YOClgoYej6VqBUXnzrFwxC UgJCPquqMyrr0uimSeATEc WIHoD2AjvremzKxzheNzTE Ccbf6iozWzOMR1GHSPYJGw NKCmu1WvbG4coPEVYUZ8lP Chcq6hbrYHcZQrNWAmcw98 PUBkMJ1eS3otRTElDPKhmm YpdMRnh9NnYKPdfSK8bHAx ML7JIdIHt66rBSYbXZOKck NtOVShrTgtsYR3zcY0yQ6l IChGREEpLlx+IFRoZSBGRE PiNK0unpIem9JbfkCioGee TQKolKPfi7TopJJax7PmgF gwl3HkpYLlwNMtMM4dWVJz clxwYXIgVVRNQiBMYWJvcm P9k9YxXMFxVKFgDTI6iPxd rue5HUPqwQ9bIZZbG6uazy acKWrkSOMkz2VoyO0xqNLI mMGas2IhqRPctJXXhARbVY 0jhzAzYHpWPHoVRBN4itLx IGEvx8IoOZrtS5piM65wdL wmvUr2iCV3YMH7tB1mIli+ IFxwYXJccGFyIEFwcHJvcH SbKANxrKglbmWzL6NxcbFu zO9fcSXjguMuAP9lHL3gO7 V6hUHoTVVmqcBim5tkXNak dmUgYmVlbiByZXZpZXdlZC Mhj4AuVEugVTN0CKzxvhTu bmNsdWRpbmcgSCZFLCBTcG HbyBJkXPW4ADkkfuQzbmLe ZI0ezS1qoYtotZ1akREetO M4unrcEJElSQZhtVeoXEIq FD9bvOfxbB6iKsVuIeQiEU wwYQ9tOWStC6jltFZgOFIr XSYrH5hhVwRuxW9feAapRK xjZjJcZnMyMFxwYXJccGFy XHBsYWluXGYxXGZzMjBcbG FuZzEwMzNcaGljaFxmMVxk AnEpJYHyZBumN3mjHcOvK7 RxJUIaCzQefAFtH1dbBGzc APE3ZWLjPY2srUUjZF90yO Hkn9rfUSspuKwyof4qB54t wEFiCTuwbYhjVYHff80yv0 TqKARxmtSdno9aZVFwotZ9 cQ5gEQZdlCvbYIGclQXtTI Tzu1XaVLnxcJVpghFtEZen TIEsQGToaUKnjmN7vcCkpc LerfLgAWRvxJynNPRxf8Un PHXjFSqdn6Twaf6pcNGcWG HdntTXtTspqEBtfP5hL9Px EGIjQMHceo3mPWUudG0gAG txl5ByqsgxBFGzFHDxTAHp tdUanj2lQWAxjDTWHR8IBH wnpZTac1UdxfGqV7xBFDG2 NUQwNjYwMjgxKSBleGNlcH HhLYVodl53AXNqwD5mdIfn JLFkxL0zyG0ydOptkK7uOp HnTbDwGHbiPX7uNKZcK1px bLLhLDWwMXZqZ7kwIaIhrI 9jaFxmMVxjZjJcZnMyMFxw YXJ9fQ== Embedded Images (test code = [id number]) [facility] [id number] 19:23:05* Test Item Value Reference Range Interpretation Comme nts Case Report (test code = [id number]) Surgical Pathology ?Case: [id number] ? Authorizing Provider: ?Dominic Keita MD ? [...] HPylori ? Final Diagnosis (test code = [id number]) s5ivuMMbUCBaq0bqSWOikF FuZzEwMzNcZnRuYmpcdWMx WUwylkVoWDmjgEsuBEC8XS TwLJ6zxEpeiAr9dDxxRKNy voU6gKVzMUuom2rlOXD4r2 ufudrvRUNuTMseWa3bwOKw mCmoXbKqDBEbKLx0sX87FH MikX9npJIoGHg0FVKthPZa wqGlZnOqIWBavHMwtQS2MC VfKH1bxhqzXGpsDCunNZCv qbD3BNEawBFeC6UeHVTbRT 1dyrumATZ2BFkeVYRgJNM8 SnJiBJGdv3Rjfkw2KmHniP FyZFxwbGFpblxmczIwXHBh dkMQGaWIVG6QKYNOELQEY7 nEBIHBDU9MDJGCWzddjSTc OSFkQLJsGKTRHN1QXNPpP8 mDPpMhHA2UCDZfVWIglASg EYJunxCJYeRWKE1QKQ8WFL wgQklPUFNZOlxwYXIgICAg CIAcQWwQI4PMZYVvXFNKZ3 DGCHkXQIadGj6bXRHCOW1S W9dCC4SJKSUVPA7UOUdnSV UgZGXgENFhIJ3BWLmfFYKF JH1DMWHYVVOWCHcBVOMIBK UCTSfWWCAWK7SRJEtGNHYn mkpqKMNnQw9kS3LBRACQAP wgQklPUFNZOlxwYXIgICAg QKAyLDRRP0MWEqWKNT1MH3 2XMWIJVGDXMX5XRFLHQMxT EO9CXSRTVIPXFMKHZ0ZufR FyICAgICAgLSBOTyBFVklE MB2UVJXJNvOEOQdOAQHtMZ lTRUFTRVxwYXIgICAgICAt EA6BRHaoKYTBAN2WLQKVHi dBTklTTVMgSURFTlRJRklF IWGQSOZDRU3SIr1SYHEAAu xwYXJccGFyfXtccnRmMVxz w9DbL5RfQqBcWZyhxeUmGJ BgJnrbrbjfKTNcALU7byCg QLYzMKyeZKXqVPijKq9rwJ JjvAqtAnTkOUDaj6rgosOB ERsiPcNvI462UMCrCOfqv0 nfm0VnMDJvbLJke4L3QQVW gyyvwWv6f0wvUpIlMwX2rL BaMWkkX9gmrmYrrGMcM0Cn nJNdaYa4iJaaR16vd8Z3Zf ypM0lrFZQdHXNlU4DiCH6j GUQzRes4ZFC8TKJ1GZWpQN DtX1FzIZ0zOVWyyJTpNWu1 k3lufUbbNIZoTIA0r3dgKX sazuN1XZ1fqp2kkPl3q6gn czEgRGVmYXVsdCBQYXJhZ3 AdjMjeCe8bvCn7cXhrSced SSD8Njt4OD0roh75wnr1pH qcMLLgvxriQsJ7DBazTXFc mrlcTEm0BMjdNTKyjRC2HO OqaUFfR9AwVVHlPZ0pyjb2 WYR3CPpmLLDlNhA4DLPioA HvAZOvoOmkNPrjd535BJK9 HbKwOB5hS0Gkd6Q8rJ0xnQ KkBXYxlUUnMiMhUHDyac1c hRAbFYdpb4EtXIZ6mrX3hT XmcGYkHBIrWP27Hrmjh7Pl BxojKPL1ZXBnyrWls5Ddf3 buBkVebbViK5tpO6YgFTLu LGCfLULuYcUbyiZse0Nxm6 GxsUMtxFy0y5lfZCSjATDx fFsob3zcHUB8YZIdC4K5nB Fel9adCOhwGOGybGB1nmR8 ROZgkAUwJ3GtfK4oRNBcRJ 6xtht0m2aeGRR9UKzaMIDd UlR4osT2NJGwdDJwYRPykR feVHfhk670TUG3CoAxAKPs m9NtA0MyrXqtQ07jjFluD7 9bYEOauWwzsB8wlZuvxT0c ZjBcZnMyNFxxbFxwbGFpbl xmMVxmczIwXGxhbmcxMDMz CGimP4frFaRuSJIitUjiPJ guf5XqCPAqOSDlWvvlcpOq XHBhciBJIGhhdmUgcGVyc2 9uYWxseSByZXZpZXdlZCBh hPjkk9CeE7soXZ3mN1BioX CglkAqxsPaSUcqLSLqg7g2 yOFfeRdmy9MdmTDhTR62yx QlWJKuTFF3CNVmo8hqVB20 rczrIsKevP16xgXvdrXmME Edb4ukX9ziaPXsg9Ptl7Zb iwOzFSomc6BeSZ8egKVvjq atrMC6EYCanSTykrFmmnT1 zEezIFMdwK7jnZ0nwRzasA 7uUoBrCkZsGCcnIO6nVNNq Z6rypJRwTWNkTCRjW0urTi QxbI2dtJqwIefaewG2DBIi cn19 Clinical Information (test code = [id number]) Shivani Schuler is a 47 year old female with IDA1. Gastric polyp x 6 r/o adenoma2.Duodenal Bx, r/o Celiac disease 3. Gastric Bx r/o HPylori Gross Description (test code = [id number]) p4mjvEZdAQJvnYGMYSS3JM HgGN7gkScvcUu7bOpwBAWk bhN8sUTkWEjzu7jtOVM8f6 jgykWISesbRFCoZJ3eAUvn LJAeTH8yHrNrNQPrMmLfZM BhcGVydzEyMjQwXHBhcGVy aYZ8HNEyMI8vzodgWGplZZ gdAXTtdvU0UMHknFGsQ2Re TQIlPA3pfjqxVKX0XUEVRf nwLs6qxCXjkIyrCkWjJlRl YXJzZXQwXGZuaWwgQXJpYW g3gO7EUnzcNCJ4PHPBNumn CzzorEtac0IzpXTtMPOpFM xcaWQgNTEwMDAgXFxkYiBP PaHpMoH9Brd4FGB6MgD6YZ c7YUMVBPCeGbezYNS4LcJ1 VZv6QOIeSY7bFJueyOCqJK coUhwrWQwhO519WVtuFZKk C9LeK5OkFVgxPoRbQGvlMT YnWGTgKNxyLQImF8GUEJVc PJI0YqZcKBRkZRj9VFztV2 CRQKRsCAKbMiX1SJBhIzY3 UVl7STWXFc3aSCyiHjFcKG k2LXX3RWs7IxPpLCNgEhSo OZRoQKMdHRtxfJGrIC2nkA wjWSOnPG9YBBNkUPkdTAYa VqIoS3YYS7rTRU7gUWopyN JjaFxmczIyXHBhciANClxw GEKlCS9CYZJaCVsaIMr2qi FeYSRfJjXgSWSqJ87eb5SZ v8UlPD5CTDn9syJgjoweqR 7kUJVxnuPsLOrRrIIgjD5c arIBPWloXQEfZ5RvhoAaSQ fbEIZfzj6pfMqmEDcoQwUz bGVkIHdpdGggdGhlIHBhdG xcinSnB6V7poDwRW1kQKVS ONXetN0iUFZiIFJgx1OdiD GlyPmqJ0JchQLdEqQth6n6 wSC7NUBdtfVgJCZnvWZjQF Rngw1tZUlqCfGfV8Y3OOHc FCOkt94njRV7xhEkMyCmhF z7kXYzZKV7VS3odYvndbVn k0i0eZ4lWWLjh1R9TGRlx9 B4DCLapiOpmHEmnBDlBKSp OJ0chiFrCV09QPJqKBjrKN jjALC8PJY0HKMhlDMnm2zk ftvcNe8pLMgzTD0mWEfqDO 68LZUhTRgjFQSmV4PqY4K0 MYnqPYViXCDwsVPucL1ska BvlzRcyPe1VLYsJME1iODv aUvxDLFkVujltNC6UUVgJe ProlGsm7NjdAp4qTSqEXlw UPAbwM7plV2rCKZeBIJjry PSPcyzDMNeFHlke7NcBRgy cGljWHNhMzAgDQpcZXBpY0 2tf0GZf3Kxl8mphOkng0Or hMCwGF9gxRUfVL1Ce2wkNV TvuPVdMDN0NNcbv2awDIwz RKD1MOAwYxOmCDEcLZ4BZd PwKJovRJg6JMhiGWk9YPp9 ZG8HYgVdCOPnNyg2ZdT0Wo DzCTu0MKbwKS8FNRE2CXZp TTKoNFquTVU6SMDbXWl7FD IgXFxzcyAzIFxcZmwgXFxu T28niGZxTPobWtUfKJihzY uiTJIgQNH5KV1BIVItUyZl E0MCY3aZRQ6nQsmeauQeGR DoilKJOqlsXCLoAN7XLQLi GCmrVLj4tpZfVMEgEaUxUD OeP88gg2RPd4UbWF0ZVGr2 zgFkhaoiuV9nTUMnykAaw1 IzMFxlcGljWHNiMzAgDQpT rQEdoN1ulpOPNIeuHDQgY2 YmbrAaEFqwYQEymr9qdNzz IGxhYmVsbGVkIHdpdGggdG uiZYZqvBktocUlQ8V2diAg CZ2wWTFPJHYqeJ3jDIXeHT GrYCRpMTFztA5aPBH7y1Kz dlIkNZBVGUFbmLwrXG12uW BjZWxpYWMgZGlzZWFzZSBh umJnkoNst89jslHnf6KmUV 5nrXgnXMpWTWzuQwEmHT5p PBZpnjYzq8VrUZ3dLJGngR ZqBVUrzcoraOYbMLa4xJJe COEaJyOnwXvzu3IcVJFrUL rmUG43zvGmAH2oKXuxFN8h AGptCP7sCUOeKPVnLSWoUr BxxKIyOqUssHNfPtOsQ69v PsCDtHWps8JcU3oyQL3shG GzXcaweXRpFLQvzEpzh9Rx mJThMEDoa2FezUVyUTibZY 2fWFS5Lk5jaNXjKFQwfnC6 z0IxYMhiDOAlBgkrXMMfJR ecs5NyACTmmWQBu2ZqAJ5I XHBhciANClxzYTMwXGVwaW NLx8DiCCBZSvqsmHvvBnBl gXHdCwN6GROdvONyNFF9NY 6baSqeKVAlJMy4XAjgBZEh E8NbD1IcUXhkAjRhBNkdPD VsGRVvYNvoYYGiD1BJOEOd ZDU9HmSgQKHvPNp9FDntB7 PWZSGlJGVyXfE8YBS0CyX7 URk0PLDYIk6iDTplAgEwXL ZlKkI6IBo9JlSmSNNkTlVi MAFcSZPlXFwowNJsTH6mgI fjQSWzUXJgQRI4ZKYfzCBQ c1UtSIZxDGtzKdLxKWUTTR EESZ6YRgNMOIHiSsJhmTTg IT5LZTLkvqTyUGvpsPvnkD 2fiYKeI4saQpNnFhzymErb TmVzdERvYzEgDQpcbHRycG FyXGxpbjBccmluMFxzYjMw NNAkhTLVw2QdPIQOEoDeMN NpbWVuIEMgaXMgcmVjZWl2 LGGneB1rTg0wlVDebB2reG TpNCaaNWWgz3v9hYQ2tVPb sKM9fHQniOzzZvRvAX1cpH PkPNUEEY66hOPhkrEvDSOv kY4lKACkDNJaWMQ3yikxJI JXDVW2bPMuv9Q0TXhiBHW7 gC5xgZquMeYlF7L6EVJrEZ Bju80lsJY9khAuZpZmHOVa it6ryU1iLStupeOjcUtxyc Gpj2U1SUOkq0Z6NCNtixIp lNKrnEYmHIAtOiN0ICNaZv X6KBKkYADzpCRbRWIsFN1e VGhlIHNwZWNpbWVuIGlzIG VgzAGvjwEfLBYogj21S3yj MBXvxB1rw3lqMdGsZVGxRE BnnIJfuOT4IVFykN7kkT45 jcBhylRVBG6jnJNbVC5GVY NiMFxlcGljWHNiMCANClxw PATqENlgs4CaEBnsiYlmHO JpBzBzENhTqHdaOWAQC0nu hIVzLZfrQMZMGXlEC7SPND 3BXHYckWZTOYS0CF4vMCxs TIDoY9WgD8TaggF6a6bqdG php9XcfPMvYI2aeBQsTG7Y XHBhcmQgDQp9 Disclaimer (test code = [id number]) s5oehUKaCSPiy7ctOKKrkW FuZzEwMzNcZnRuYmpcdWMx KQewlcVrNMvgo1ByU9LpJy AwMFxhbnNpXGRlZmxhbmcx ZCGuRPY9ugJmKXHzBEmrLX CkRRtuQe7viQTvjNipLuFw VXDsw6vzhbJURNbyDjPbW9 20XHBpQPzml7ash6UeHOSw hXWvg7U2YANOzpjorNv7aD vwO94ff9L1InweR6jlDYQb FAAgB0BiMX5aYVZuUnf5GU I0RAM7RFIaFIVcF3OyPF8q VCEfpLEuDBn3b3upqOarHG ReRWI9h1mnGLndxlDiJJ8c ac2fcYv4f7dthqWeZLPiSF SqkCHDGXMsX3AfgUspZj9d bBc6qLhxWmdiYSE9Pyi3AG 6vgi48dpe9fTijMVDszllc RhW8UIfbCNYyklvnQOa9PA fcDPUzlZD2FTCbkBFsQ6Zq GRLxLD4lson0MAY1ULnwAM GvKjE9QDPihDLjHMQkkPzf WDtgl973UGZ2BhKtKO5yE9 Lrs4O7vO2uaYWvHCDldAOb BpLtWLAkqh2eqDNvHIril1 TfKYM2lxC5xWPhcXWoCWKp FC58Kmvmb2BnTydwl7EyB3 7fgJH0QZgde0dxIA4kLgS2 vbRwAEdek2vacI7hCaC8RW ctFF1uVY4qGFRvwN0igtxk XHBnYnJkcmhlYWRccGdicm UiRs1otOwmRQG9TXeuL9zm iZ7hFcB9DBflB7kxaB6mUF l5PFjnvRJ0ENKyvW9vBY3z xkhjm1rgKDogSHhqNIRdmm R8oaT7CWExnPGrA5HlkP1k SYGgTV3skudtz8udFYP8LZ kaBDWfYVP0HwBaIRCcr0Wq nyp2KdJsr3NfsTLwWKzjU6 2rt426UJWxkdCeA4qtxAOo utyveGGdzifgUUhnqrV6WT GasoSyk0AaJZCxVFY2AXgl LNwiqSOeBUEtdIpyg1uwO5 RscGFyXHBsYWluXGYxXGZz MjBcbGFuZzEwMzNcaGljaF trVFqjQlXbPLOxQMytL7ix SbSuW4IuDHSkShFqkTGiX1 ggVGhpcyByZXBvcnQgbWF5 LGtcK5i2UJIrbeBulVo6oc AfGmNhCUZbFKD5VEhsuMOc ZEAat4CoxwfiuLCoVa8ehA UbXFIqcH2iLEUqGGVeKJnv EO8yrMp9AEGHqELkqDBdPf VQDPUgSL99fxDfSLCJyukq k2R4GVuwMNCmc0KgsSOoY9 yks6HwLFZak38aCP0yv0O3 c8jtFXG9NF2qx4MhAFUhwP SasKNhBULcp1Rxzkdxy4Iz BJKuuxMyd3IlSFLisoLylO UqJSEvcuKvna8stpZkIESz SBObY6OpyuiggYtndwHoHV Kntu4qyqKiVTF9BHBTGLVj WUSdo4HhyK0ngBVHVOX7aH Vbxc9yfxBDxPXdMFLgmd90 FDJyHO0oG0fxOHMdOZTelx UouHHej1NjBUTxeVA4zJNr QX8QHmCFh21vKFUiXFVBdv AkULBloNxwrLU1vjS4bD8o IChGREEpLlx+IFRoZSBGRE ZqMF1ajeAqu6UzikYzmHyv NEThhTZta5CzoZXvz2YkpO dim0UmjIPzdJXrWG3nTKKl clxwYXIgVVRNQiBMYWJvcm U7i9GmELWeJFPgXHW9sZiv ivn9AMEoyL8kVUIoT3awdb bvRGafHINls6YevZ2rkYJH wUWok3XkcIPuuACXqPKrHK 1kycUzBRbNQOrBUNY6awZc FBEog1LzYIjyZ4yeO80ybH dqgCo2hIF2GTH7lO4fWme+ IFxwYXJccGFyIEFwcHJvcH BqETLcoYnmykRyX1KdyuNx jX2anGBouuWkOL9cYM4sN8 F2bVXzXNGrbwMfa7yuLKvv dmUgYmVlbiByZXZpZXdlZC Are7HjIPmwCII7DBldxhQi bmNsdWRpbmcgSCZFLCBTcG JiqDUgEAO5POtvcrUfmnKr YC7zuK8zeFnzhS6ngACvkI T6ysmdUGKuPZYcbQhmEKFg ZP1mmVsnyE4dFvHfPnLrJD jrOS9qVURoA2acwFEbLPBc QHZiH9paReXpvH5zmGhwLD xjZjJcZnMyMFxwYXJccGFy XHBsYWluXGYxXGZzMjBcbG FuZzEwMzNcaGljaFxmMVxk ZbPoVZTvGMugV3kvJySuR6 NhZLJrNxNqfXBbF6lfYDyy HLU0YGVrKG8etABnBR15rB Haa8rgVIxljSmrsi4zR18t qIXiQEzkoAiiTCDmm89ot7 NrLFBgulOnqo6uJBUunaD3 uF6rIPFhgUskVILokNUaJC Nfk0NaCKsdvIMhtiIkPJdw OCNkVWMecWQthuJ2pjJcir GwstMoKKRshIntMSNcp1Fg BEInXKbfx1Qygw4aaIKgPF YbdmEXfZdubQDchV0kK9Ow RYQsMGXpiv5zKWDmaO7wNQ gcm9HmjqjsFXAzFQOuQRQu yfIblo1lTRGfjLDHVI0KBI vurCUtb9KlhlLrT6oSLQE7 NUQwNjYwMjgxKSBleGNlcH SgXHEcqj16UQUhnM6iwOex IKCtaF2idR4zdUkqeO0wTr YaGsJxVOetJP4hUKTkR3mj cRYzQCUhLEXuC2gnCpRmnW 9jaFxmMVxjZjJcZnMyMFxw YXJ9fQ== Embedded Images (test code = [id number]) [facility] [id number] 19:23:05* Test Item Value Reference Range Interpretation Comme nts Case Report (test code = [id number]) Surgical Pathology ?Case: [id number] ? Authorizing Provider: ?Dominic Keita MD ? [...] HPylori ? Final Diagnosis (test code = [id number]) s2ceuTXpUCOky2ilODJubF FuZzEwMzNcZnRuYmpcdWMx LCqlpjBwFWbdfLfcXLL8NS CqKN7xdRwpcTi8qNoxHXGk afR8jYVeOHywp6rpQJR2g8 jrcnqgDADwIWplJy5dxFIy sQflQfNwQHCdPOi3sJ37JN QvpW2veSRfCMm9SGCufYIv mnBiFuFjCDYvrMYmzYL9XA VrBP9gwfwtMOuhEDfeJDGg gaO4CMUrnJBdP9MoMCGsOU 3kuwcfGHI6EGmmTWNrRND4 BkIjFEXjc7Rbdeh2HqUbmD FyZFxwbGFpblxmczIwXHBh pvBJTtBQIK4BAAHRELAZX6 bNCDWRNU6UYHYCErbztKFx OKHiFRZhLUDQIY4YQEAyN3 uFMuAfVF7ATHGjDSEevJUe QOPckiYTMeSSPQ9ZIC8QXV wgQklPUFNZOlxwYXIgICAg DTDuJHzHI7TAPOTzCYKBW4 DTARnOJKrlUt1tLAUMAQ6Q D2oNY4AHVKGPMY0VCDnaBH FaVAGnVDIoCZ3XEAoxIXPG NP5TJCRVSPTTUMjOCXUBAG JPTYaOMZNTC2RFUFkHNWTc tdwaIXHdZv3eW9OEOJGCRR wgQklPUFNZOlxwYXIgICAg UPPvXXRRT6GIUqLYYY5OF6 8IDMCOGVDXSD9GULXQMYxC SW5LNEAZZMXLNLKOD8SbdJ FyICAgICAgLSBOTyBFVklE QC7MVGECTvINKOrPHUSwKZ lTRUFTRVxwYXIgICAgICAt GM9GPEieEYESGY4GXCBMTs dBTklTTVMgSURFTlRJRklF LHUHONWUDA6WAd6SGQXRFe xwYXJccGFyfXtccnRmMVxz q3JhM3SzTsTtTEgsopFaLX XrUmgstdtaQFGvIKR2avHz OZMpPZvlVLUgOOdnDg1jzT RqlNbhDyHdGHEvr2dhbsFX CZlwElZvR123DEGgTCldb3 arn9FbOEQdmWHrv8Z4XBQN mvaleGi3g1sfNxYtIsL7zC ZsOJatF2rxkkJvhYBpV8Xi gYEmrMo7kSbdO24re7O5Ix brQ5drEKMqNOKgM1QaQC6m ZMCvYpk3XLN0HRA7XBGgKD BhS8AtNU8hBYKaiQCmCUo5 j4wsnQvoFUNwFZD8h1ipHF qwtmT2XQ6rra8niBd6t9ho czEgRGVmYXVsdCBQYXJhZ3 HvlSxzTm5rkGt8fOeqUgno BOO8Prn2UT4odi61noz1lZ uuSGGpiiyyJiT4LPxkVIBa bshjLJb2WVfoHAXlcEJ1WI JcqGApT8NkWQGiUS6ztcf2 YTE1WPzyJRYmPjE5HMXpgT OdICCsmTjhXUqol200TMM1 TbJeGA2cO1Onb3C9dL3bqB EnLVDjsNUgBvCzSXMamj3e dQGqRLsin6ZvRNY1ywE4sQ AppBUzRVFmRK08Awzzf9Ij NineAPF8MTKbdzJvn6Chw9 taQrFwywYhZ7jzP4ZuXHCy HWFjJQNwVqUwwwQdu3Jxn5 ImkUGfaGq2a9wsISFdMAXk rEzof1ktANA2IIHfZ8G0tQ Ubp8zdMPovALCbjDU6shE1 DZWgxYLgV7DsiL6bMTPuHA 3egyz1c1pjUBO1DLilPVIy LrA1ofR1UQHkuZQlHKLtzD upZDjee779HIQ8GgNoVEQp a2RhK6MacNosX42huBvzK1 6mAOVvpWxseA1hiUexbT0g ZjBcZnMyNFxxbFxwbGFpbl xmMVxmczIwXGxhbmcxMDMz QAluP3ohQuPrWYMzxCqoKL ddl3CoHHOhWQTnOktjmrMa XHBhciBJIGhhdmUgcGVyc2 9uYWxseSByZXZpZXdlZCBh yOfje6TxS4awEZ8hZ0WlbI LkqsBpcxRpLCmzUITsz5b0 yJGygXpyn7ZrzQKiES82ep XtQAXcGCX7TBBus3lxWF81 zsgyDjBngN45vdKnptFvXN Ijn6wdH8rxcDIws5Cfn5Wo yuHoIJsfv4HtSV5nvLFnax kdzVV8PQMpoHQzmvDwjhU2 lAjyORJtkE9poK8adEpauC 4hToBiXqUmBYhoBB6bASAz D8hriFYrBURqKMNeO8vvCb NyxA6cxZoqXlxixqQ9CONj cn19 Clinical Information (test code = [id number]) Shivani Schuler is a 47 year old female with IDA1. Gastric polyp x 6 r/o adenoma2.Duodenal Bx, r/o Celiac disease 3. Gastric Bx r/o HPylori Gross Description (test code = [id number]) e0ulwQXnRNXcbVIVYJV8UX QoTI5itEeioNk9yDbtZRAr mbF8wWUvVVdms6eyKNR1o5 gqirZPHudzDDIiLM3bMLxv NZCyGH5pPcLsMYQrFyNdZH BhcGVydzEyMjQwXHBhcGVy wER7QSRxJI0nudwtCCgoQQ jjWENxifN9BCVptAAnO8Rw WCKjBI6dqbtxMOG4VLOSLi mlDu2muIJygCozTlQcPxBo YXJzZXQwXGZuaWwgQXJpYW r6gJ9UNuotPIF5NASYVvma LsycgXffq7BajMFzMXYqXZ xcaWQgNTEwMDAgXFxkYiBP JxZkIiO2Rsw9QFI7CzD7JV g8LZGHBZCaNzzrTNE3WuH2 XPs3YPQcVH7aOBlmjIEdLT neGucxJXrzR537XCeiKAVl V6DgB8OdHDhmWwHdKYwlEH KeNALhXOsqFXOeM9TEYWDn HZA1ZjNqPLUoJHf9HLcxJ3 VEHEJmVTGqBzW4ZXSjFyB0 YHt9JODYCk9nKSgpAfPnYP e3HQS8MRm6KeHuQFGjZsEo UKErMZZvOHrbfTXhTF4yaL ksPXTwFX3UTVWeHAhtNQAl PuBcZ5KAK3yUAM8bANnreA JjaFxmczIyXHBhciANClxw DTLvHE0NHRRiIYbjRDx8yd TlCWUpHqIrQYIsM27nj2GE u7VsYN6ZQKk3ihRnveduaS 4gBRIsxmKnXAxLfTIgeR8j hrUYWRuzMQEoD9JeenZoOY mqECCrfb3mjPdbFZkqNgVb bGVkIHdpdGggdGhlIHBhdG gdwdLaH7A9dnFbPE7tDSJB IYIvsP5rJWSuKTOwc6EjiI SyoXqnN1CfiONmRcNeo6g5 iCU3TQYyouEbELJmmWLtOT Xfpg5hFJnwBdPgB0C1AFUb FQVti58dtCH4uySoYlKnqV q1zQOyMWG7LJ9hlJljnaNp z3g0mR8qYLSle2E4JEExe7 U3KIPehpTnqQTjdSChKFFt IE9mbhJtMV04VLNnAWfuAL tpQAO0NLA1YXZtyDJgf9qm fzgmXk0dNBgwEP6dFBjtFV 95DCMuJSuuVVXpG7SvL8B5 ZGiiUUSxSTZlqADeyB7ebf XxnoZvzGb9EOFpUID3eNPo tIyiWOArMtbpoGV6HFGuHg QnjcSid3RrxMq3fUFqLGmr IGHlhE4jsC8pQYAaHSBuaa LQYtisSPAjTSrai0GaPVhy cGljWHNhMzAgDQpcZXBpY0 5ju4IUr8Hem5dwsEyij3Gw bFTuXD1fuUPbZJ4Fm9fdPD TbwUKcBDD9WUrlj2ekSMwi ZRL0DEViYyPgHNJuFS0NSg MwDKplEOx1BHorTAs7QAs5 WV2JElFsPJYeXkd2GtN6Kr YeEWa8VAwyPP3WYQR9KXXr QFRmLQewYJR9MTDcGAc6HP IgXFxzcyAzIFxcZmwgXFxu Y64stFAwPBtlOrNsEElpmV ioWZAcJBZ3RB9ZLEUoGlZm S5RMH5dPXS0yHgigpbAcOB MebyONDwplNAVvZF4MAQRf ZGgfQFc0euAmZAMgJdPqVV AsG72pn5WGv5YiRW1OYBc3 frPywovfeH2zVCBtczZqs7 IzMFxlcGljWHNiMzAgDQpT cIImzT5drhLIMMbeMGQvW6 WyvjZjYUzcAARcfu3gdOku IGxhYmVsbGVkIHdpdGggdG taPFSngHtjyeQtR2Y6nwHz EB7aLTIBTTKouZ3jYTXwWD ZjAVTgNFEnoQ0mAFD7q6Ck xbKrSBNVFYFoiTweCW08uN BjZWxpYWMgZGlzZWFzZSBh ucKmaiFrj11jexCqc0CuJS 3wrUclONbOTPooGkXiAA7l FRAzujEee0PzXK9bJQTegH TbIEOvmohfjBYbWOd5fNDn CJFcMuBbkVkuj0IlUXZwMT fnNK91ubHjDA2jDIldEZ5t PTxtRG4tNATkMKOiJDPqYv BbgEOeIvHupSAnByWcN68f MqDQuDFct6LxY7mmXX0iiQ JjAdefcLMwJGFjlOtfg8Yk lXYrAFEfp2MvkISfIWuwRE 0tSGO3Oy7amVKlNFWzcmG7 l0OtEQfsEIPuBfsmZJPfXW wmv6PrKITfgTIMf8OgCI0V XHBhciANClxzYTMwXGVwaW PEd1FlDXOJMebhdLllMwZp rGImKbP6WCOuxSSuDLU7US 9ycGctBHLxSKf2UJrfWJLq J3SlG9MqRSgsNyMlEOccML MfVNHmYCqeNOEnO3OVPCDb SLT4FkYzWVXoJCr5IWupX9 ROQVZqQNQiZfT3XIT0ZuM9 GGu1GSMFFv2zXPekScSwVU DcDjD4AHw8EqTzGNTnNwDb CUZpYNRqNAialMLfCS4upG kwWHTrVMIjPVO4LYFswRRT m7KxBTTrLHaaDaLgLZYUUJ FEEM6UFzWBEMNgWpRjcAIh ZN5LUNTrciYbRMgueAcjbR 9dgSFfA2xzXlDlGeluwXpo TmVzdERvYzEgDQpcbHRycG FyXGxpbjBccmluMFxzYjMw HNHftVPYq3JyWHEEPhOcPL NpbWVuIEMgaXMgcmVjZWl2 SBHgtM7vDm6goSNlhS5zjY CxQLuoILGmv1w7aAC4hBRz vQY8kBWdxOmwTmKiUX7asM MsQYELML92gNGseaMsHRDr xS8cOFTmGWXsWZJ3zsenYD KDIAF2cGTel2Z8BQyrYYA3 wF5yyFipQoVrB5A5ALYeRI Vus89gvYQ7utHfOrXxNSGe ei0tuX9aYKlaplTzcTcpdv Ydg4X7WBIrw8M5JEShfeYt uYGkxKAfYXAiMfK3GDFkSo C6IKAuVBSxmPFxKVGwWH6n VGhlIHNwZWNpbWVuIGlzIG QdvCZvbrCcFBBimm73O5xo KTPqdA1ml4hiOkXyKHNuGL SsgQTraQS8OSOxaK0oeX62 yoNzbhKHBD5cxHNlQJ4LEH NiMFxlcGljWHNiMCANClxw QFVqPZxqr0WyIMurdBesGY QeVmGcILnBfVxpXRNEA6cp vRFbHTkvXDQLPKsRG1RPQL 4FFZKotGIISJX6FC7zPCdu CCVsW9ClN0YbnqD3t7wldC wmb9AgiIWaRG2vpIHdDQ8M XHBhcmQgDQp9 Disclaimer (test code = [id number]) z0fdcTUwUTCcz0wvKKKpgV FuZzEwMzNcZnRuYmpcdWMx HGfpptUzVCwej1WpS0SlZn AwMFxhbnNpXGRlZmxhbmcx VQObKWB0zcCvOOFhRDpcKJ DyYQdnDd7aqLXolLvwFmYj CWXkz3lrywUZRGkoGdZtF1 85TLLhERltp2aex6SjUGTs pWIzp5Y6RTMLkyrsgOq6uZ ivI16yu3E8SxeqF8huVOZa FFDcC2CpHF7lXHUbVzn7HA B3KDW4IAQcOOTgN7EjJK9m VSVfaWXtBPf5z3khxOrjSQ SbAGA8y5syAYgkdtFfWB0q dg2agVk9b3nkvxCnYJUqPM VlfEXWLWSkS0VmhIbpVt6o hHe1zYmqUpbdFJW0Uiv9CA 5spi90mws1eWagRHYabbvq QqE2DWodIYOwwifeISs4JV dgVHXvxEB1GHHafEUnW4Di PSTwSW9fgfw0ZZJ7WNsdYD FiEeF0IMPldLNmNOOsqLnb CWngw238FVJ9WlNmCJ0xI7 Hsl3R8kP2jiPMzMSRvjYWo AqKfLRDrid5hqVFaYHsgs4 RwMDX3nmV8uAFzlDXfQJAs OS49Xgtvg3YdIrfuz5GiT9 0ynWE7EVkjz9ncKG0oKrF1 ruWoMLfts6gcvQ3hSvR1IQ yyKD7tTC6fCETjqH4iljmc XHBnYnJkcmhlYWRccGdicm ZeZm6soEluSYF8FEmhK5ew wU2kFoW4EIgbH3rlpK0fIB p6IZystJK8SZItuK7cXP7j xvnrm8vsGCszAQqtNDJmkd K3leZ1PYCkxSAoE2RjpY9z UTHqPP8vrumox4eyPMD5OE mnORKpUEO2PsNdHGPsi9Uj pfj6SxUam2SlkWHbCMoqG7 0ie256DCDddbToN7faaIXq psuntPLyxujdYJwevgX8KC WlgwEnc5XqTLCtDFP8OVla VMldaVEkAOWzkAnhy4tqN7 RscGFyXHBsYWluXGYxXGZz MjBcbGFuZzEwMzNcaGljaF vhIIrpYwSsCEVrGNooE7no AjTrE5JsDODsMxKkjYNqG0 ggVGhpcyByZXBvcnQgbWF5 JMzlX2g3YVMgiyOirQh1eb JjFwEzBESzTMD4VJfgpXYy AOKil1LbpgxmzLPcIf3hqN PdGUVofN4cUDPnEJHpBQyb AC1bzHd4CNZLrQOhnLNgYr NUVUMmFE40yyLjCZIYfmyy v6O2UItoWZAuh9ZnlEGqC1 tfj6MjIONoy18rBY0yn5J7 t2bfWIB5ZT5qo9HxUCHvhD XprSKyXKFpc6Hxudlfu3On KAFgajEqq1DaWBHfxhGfjS PgNDZilwLlsk0hzoDsLREg SMFaX2MllsnpqFljleYuII Vxhu7sqiSaPDE3SNXJETNg YXCpv5WfwC2duNYYWEU3rS Jhbl2qxdYLkCDfZVKphz33 PINgKY3vL8kgUAJqKGCuot TjxFUnp1UrEBXfsEB1dENr OM8WPbECc35nLTArKWAMwh NpQFLnnFiqoBG2ynP9kM0o IChGREEpLlx+IFRoZSBGRE VbLN9ixnUvp3GbnaCsvAac GADfvZCjv2VloMTmn1HttD agg8AeyRTzcKDvXY5fFOEh clxwYXIgVVRNQiBMYWJvcm O2j3BjBNMmXBLoGBV9eOgf pex7GKDqjU1dTKGfN9tcip nhZRxnKREtp9XzpQ8miQZJ pKMez2YpiCOjyMJUeZPgHE 8dzbDlDUfLRDbOJMR2wnPw KCYgc8IsVGuyN7evW05gsZ lsgDk7kDH0KBD3zQ2oJqq+ IFxwYXJccGFyIEFwcHJvcH AiHHTqcWpywbQcC0DlwaPw nV5frZZqmyEqFF5ySW0sD3 O4dOOpLKEselTyd5njHHnt dmUgYmVlbiByZXZpZXdlZC Lpm4UgTIehWWA9QYjkyuLy bmNsdWRpbmcgSCZFLCBTcG CmbPCmZLO1ZHepieQwybLr ZN5zjY2puXotqS1dvGMvlN R1xzmaMOUsXFTbuMqdHTGy WP7hcDhunQ0xIeMkBlNcZG vjRT7hMLHhO4zbfZZwBTCi KOUzD2nyQyHtvI5laPloQF xjZjJcZnMyMFxwYXJccGFy XHBsYWluXGYxXGZzMjBcbG FuZzEwMzNcaGljaFxmMVxk PuIdCFHlHKxcF7yxKfFwV2 GiPSGbBnKloGDyG3yqOQhq VIX2XBVtUI2oaYWeEV36rS Axo6drSRteqYgsys7vC58m pVArYKkirCevIPAnz64zg1 CwKLSkzuBheb0zCZThbxU8 jW4bXAJglHurIUNdzKOmVJ Kta8CgJPmuyZIarsKxKVyr NCWjJSAgsXJhttH3cmDort TbtqMwXLOrlSwrKNUfs4Ea PBXhGBggw6Hteb7bbCQmIN NwnpYOyBotkLMndR9vA7Gk KHBsKCWint1gFPTftQ9fMJ eah1EycfnbDVYiIWQxNXKv myZlsk4vYCKuiKTYDZ9KSL yxlYAom5OishUsS2gAQTH2 NUQwNjYwMjgxKSBleGNlcH TuDEZiai65LRTwlC1tiTrj CGNsmO1llQ3cdVsmxJ0lJn CqRaHkIGgwWQ5aXNCnI3zk cHUcMJLuRGEoA7vfQzSvdN 9jaFxmMVxjZjJcZnMyMFxw YXJ9fQ== Embedded Images (test code = [id number]) [facility] BVBM1961-[facility] 19:23:05* Test Item Value Reference Range Interpretation Comme nts Case Report (test code = [id number]) Surgical Pathology ?Case: [id number] ? Authorizing Provider: ?Dominic Keita MD ? [...] HPylori ? Final Diagnosis (test code = [id number]) q2gxnRYmWZQrz4hqETLpvJ FuZzEwMzNcZnRuYmpcdWMx TUdvdjMsAAgxdPxiLEW9HQ LsPF0ykKbprWa0hWwbIGHh vvZ8yLSjJKbgx4knZCP3a8 vkbmtuJJJhYIomIj6tqLNb hRuoHyYdJVDdMNs5rC73WW YwqB6giREvRQk0ORFxoFFs rpKzVrFaXGBedJGejOD6AP AwBO1nhdjhVAzrHKudUNLq upW5YPWydESoK3QkVIEwLM 8enwifSQZ3HAlgCTWyGXO1 WpOiEQRmp1Vxial2WpUecF FyZFxwbGFpblxmczIwXHBh vuBOHcTYCY9XIKAGUJRVK6 xDWPVFGP6ILHNTBxtjgMYv ZHRtKVQnGWCEPK8SMORaQ7 uPTlBpOG6OBVGvWAYotZBe ROAmutJOQpXTYM6VIO8DQH wgQklPUFNZOlxwYXIgICAg QJGhXTxCL0GIAGOvTWWJU2 RQBZmLSZstQo4uPKTIAW1P K3xYD8LEWJFCHR7KTWuzYC AfKAElREApWW9KMSyfZTMQ YU1ALRZCCCKMYDzKBZKHSO IAJQjZGYRQT6VRDLxYKJTx hgyfDAIqNh0fE5GCCVFDXM wgQklPUFNZOlxwYXIgICAg ANNyCSOXS9KARqDUGB1KP2 9IWYEGTVNFPO9YMBVZKXfS XK7PPOJBYAZMHCTLW0TupX FyICAgICAgLSBOTyBFVklE HH4ZFYNYYkYNKXoRLVLsFB lTRUFTRVxwYXIgICAgICAt IX9TDUspNLFPCI7KTSPHOh dBTklTTVMgSURFTlRJRklF NDXYTJZGTC5RRt9WCUUUXq xwYXJccGFyfXtccnRmMVxz w1LoZ4QmLtUnIAfscfBwAX GwJumjjdmqNUMpPOA0fsOt YIToYRpmYEGvZZvsIs8igU EnzLixUwGfVXTws2begcTM XRviKpTzM731JVBuRMler2 xkz9TqVKNrdLSfl3W1XFQU thkmkQt3c5kjYxWaCfE3wE YvUPyvB9bkyoMtpKHgO7At gUFqxQw8lLgbN79iq2H7Rt gnU1xnNNFxXIRyA3SeBH5i YTUlWwk4ZJH7WLH0NXAeRK NrW0PyVW5kBHStfZLfLNd4 i7gvtStuEQJnPYQ0u7lqXR kazgL1KW0hiy5caQi6f9zi czEgRGVmYXVsdCBQYXJhZ3 WoyJhtSf3cxNy1sPexCldn YNS1Gyn1DV5kqz08kyh0vM hiWCVmjrirDfO9MZeoRTOv legyZMg2LTimDWDomTL0TM KqhYChF9HiWNWxGZ6bfjw8 JMK2ISklJNFrWnR3DWMluN LgVKHrpAxbPAmlk951BIT0 ReJhPL3rT9Wan6P6xN1hdA ViDABsdJTgMoBpBHGdaf1f kHZpMZxkw4ImFNG8tvP1eJ WrlFWaEKYnKR34Nyipl8Ik LiplOPL1PDPfzlCek0Mik5 cuXmNgplPwC5gvE7EyHLOu OUBaESTkXjCfoaMgc9Sjb7 SlwWYihVo4g4wsVJCiRMYo fPoom4quQJV8QAYlM2D5mP Ehn1mzOMeeVGSkpVI9rdC7 SVCbePAcE6IslO9fGKMsKJ 7wqfc8y5cdXBX6YAetWLJa XtG6pwF3PGVqnOTuOLXtbW ugJIxvb498TXE6GkIvXAId h7CbN0AzqIamN84juShzK7 8fEBRyrAeajH2xtJdplF9p ZjBcZnMyNFxxbFxwbGFpbl xmMVxmczIwXGxhbmcxMDMz TThnL7pzGtIuZPZbhTxeHL tug4OcOFCsGDFnAtfqquOz XHBhciBJIGhhdmUgcGVyc2 9uYWxseSByZXZpZXdlZCBh nPllx2OwC6ycPW6dY6GnjA RzoeGuzeJrVRwfEBPbb7x3 lSIlmKddm0MqxASmRD09ke FwTQJmMQZ6DKPnw7caSS88 iflcSwUpgB35ptKtlnHrKV Hjs7axC7qpmAGpi2Qxr6Pq ljSmTFpqp7VpVV1csAPcpt ewkIK2BNKzrROockRhtwU9 uGiuRMKxhE2sxU6lrLulxZ 8zGiDrNsEgCTwoUQ4wXHDg G2nykBTtTVQyGRRoZ1auOm UonQ1byNxyTwbihvR3CWSy cn19 Clinical Information (test code = [id number]) Shivani Schuler is a 47 year old female with IDA1. Gastric polyp x 6 r/o adenoma2.Duodenal Bx, r/o Celiac disease 3. Gastric Bx r/o HPylori Gross Description (test code = [id number]) c0awqOGuWSRnyZJZSHL1FT TgPW1ysPhimJf2iKduAOEi fcZ1nTIlDCbde2lsLSH6c6 fyrtCEFdbmJDPuAO2sUXta RHZmXG9bFbPaQXJlEyDxWA BhcGVydzEyMjQwXHBhcGVy iTU3FNHfTG3tsudnVSsiQB bzXWPswtP7ISFphCBcA5Eh IWItQO1joghpZEN3XXZDCq lpXi1hiWKjfSwxImGhEcQw YXJzZXQwXGZuaWwgQXJpYW l8iX3URsbzGMV9FINADjix SccwkAene3ZvtYOvWKDkEX xcaWQgNTEwMDAgXFxkYiBP VdMaQhV2Glk5KTF9UqO9OC g8ZTCSGTZlTxebXJJ3NeD8 KNm8XHWxIA6pWRoiuDShXP drUjefIIjbJ517QIvtPLCl C0AaV2DvSOsiSzEcCWspKQ QsWEXqFJitWRJiG4POIDOu UIG5YuPaRIPaJHj6RMvpB0 MNPMTkMTYqEbP8FKZbXcY2 HIv3WMQACy0rYWhkKoUdHX i5NWR4SNj3NfSxXAMdUoQn ELVpTBZxDCgufJUdSR9ieD zhZDDmUN8RIZSlROxiDGLq ZjXmL3GBA9cBOM6mLSthxV JjaFxmczIyXHBhciANClxw IGXwZJ1GLXVoCJhsTAw2sz ImSYXsPtHbGGUbD43fu8EN q0CuLT0FZEl0xtMnffcipI 9gORBlylDeOQtDxTLxeX7x wyRMNZdlCGRqI6GyxpObSO crQECxub0cjVebYAkbCuIw bGVkIHdpdGggdGhlIHBhdG lmpsTuF4N3dsCfUQ7wYFFJ JKTtfI3dTORzFVZpy5XvrI RofLnvG4TfiAHsJaHxa2j7 wWY1IOMqytAyHMPbtZYmFK Rdap7iHNgdKoEbM2G4VFWm YIDpz27hfAR4zuSnWmRxzX b0uGKqBLZ0WB4mcLwtoxPu h2j9zL2sHJOzv4B1LQYdp2 H4TWQwbyZikRZgaWDwPASa OM4oixFbBB88IEFkRYrpWP dpMTL9YZW7RKVmtAJnk2os rhoeUz2hBDsmLH8kODziPL 88YVDkUGryXQJvL7MxD7A7 FOasIGBmTOGwiFWwsO3zsx EcsiKuzCa8ZUQjDGV8sINj aPxcKSTwIxbxqIM2KPRgAp VqcoMzn9DblYh7mHDaBFvn AABexX8hxO8sPQBxUIWixx RFKpedBDTtIGubk1CsJZuj cGljWHNhMzAgDQpcZXBpY0 6ct2GHy4Qbo5ogbTqet6Vq uXTcTC5ztPDgRL9Nt9gyUH VuyMEyPKW0XEvfy8qvMVxa MQY0OPLyBqNlIUJgFT0OTe ZwJFluDIa1SXoqNEm4THo4 FR9RRoDcVIVxRhv0NsS7Mr BiASi0DEmiXC6PDVT3FYUt GAYoCJsxBUA5YTNkITf4BT IgXFxzcyAzIFxcZmwgXFxu V70rrWTcWOpkOqBdOTlabS pvABSqFJL6YN4HHNYbTgQl E1SZF9tEMO1wRgbyksLmMC MgpbFUVhgrRSLuRD6HOQEa SBsiQSu5vmMjEQAmXxKyYE NdA99sx8WSc3IbNW9QQKc3 nqNdrlrxmU5lGJFawoWdq0 IzMFxlcGljWHNiMzAgDQpT dVRvrQ2ubwZSYQysODAaX8 UqtoEmQJkyKYArub4inMpa IGxhYmVsbGVkIHdpdGggdG mfKXSccIzcciPkX4M7htPn HQ7uPCNAECKnrS9cUQUyGR JeZLOkUVTjbH6tSMT5r0Ce owXyQYFCQPFfhTbuMH67gJ BjZWxpYWMgZGlzZWFzZSBh cqGtjmRue26xleVqa3MyZN 2vnDywPZgRAMjcXyXxHK7s BQPzdjJfm8YyJN2lFEKzwA CwOAEfaircmGWiULr4cPCm YJJvXwTyjPrnp4PiRBEeRC fnCK52hbKeOD8jJBkzXO0u JGzoRO1yYWLfZWQjXWYdVx ScuHWyWgLmgKFuXeIwJ61e NlPBoZLvb5RuI9otPE1ijF CtIstlnJGdPATmoZxsf6Kd cAYpOYDkj8GiqKHzTMkzMX 3yUXI7Hq5meNPfFPHkmrG7 l2NaFVobXOTtHbvdUDSjJL iub1HfVFPdmFLJo5EaIR5C XHBhciANClxzYTMwXGVwaW GIm8TrVEZUIssqbBwsGlBu gYBrIvY2AQRmbBHvNBC5TN 5cyKvfAFTdLIw9AIygPYOc R0UxL9KoGKyjKpAsEUnuYC KaILJdEDydKVOiX5LJOMNc OMF8EsAqXEIyNLa6GWdpE6 XUAEVzJCSuSaL2LOY1EmV2 JYd3NXAEYb0kMQymBaOkWH FyEwW2BGt8DoQqFTDaOfRt NBLqSTXoREyuvCPcUM7scG vnRDWvSCScXCL0DTRnnAZM s6KbHDMzLEgwKgOoYPBIYV BNNG5SSyZWIZFuLiFhyJFj HB1AXREvcvTbPEynvQeftZ 9mjJJzO6ouSqCyXnxivTvw TmVzdERvYzEgDQpcbHRycG FyXGxpbjBccmluMFxzYjMw QTQhdYZPh5XuMNILRyTtLG NpbWVuIEMgaXMgcmVjZWl2 WCFuqR8iWk7bnYUycE6ybW WpIKtjZQXoy0r9cYE1mUSc qSO6bOFhjEghAtSeWB7qhU YqLZEOHK01cNBrzgMhTFRq uF8nHJHiBAEkOXE5ppvtNB CZJKU7oUZak9I9FBbyOEB0 lL3jkCmcOpWnY2E8FHYbHD Yom37oxLD7evRaAuUoLGSr oe4inW6uERnjwrQvpHszdo Pdp9G3CCRgc2W0CBTwixSg hQJyiTMeHKHvBsO8EFSoOi O5HJKhLFDxyROhKWQuTJ2m VGhlIHNwZWNpbWVuIGlzIG TnwXPjgsVbJKSipz10Q9ut QKBvmV3ux3jkJlDpPVYaRZ WmbUEjoLW8HZCpwJ3mkL86 xnHhpmAEXU6cmCXaFQ6NRA NiMFxlcGljWHNiMCANClxw JNSwQQfkr6IaQWrzuNcfBX RsGfKqSKnQxZemHNEFI1bk gEJhRFbuGSKBQPrQL1YQQC 0ZGOEnjOTUHHV3BU6kALbw IIZaN6OgS4OtdrJ4n8ymrU zro1KdoNGhBT9vhOJlSN7V XHBhcmQgDQp9 Disclaimer (test code = [id number]) w4vzaQTsOVSrp1jtYPWlwO FuZzEwMzNcZnRuYmpcdWMx RZzxekQoUFfwz0OaL0HpBn AwMFxhbnNpXGRlZmxhbmcx FWZnSNN4rzDuLBMxZKytWS FsVNspIb6vvANzyXmuXcLg OSFjz4eaquOQROmuFeXgF9 77BJXlLNhbt6ulu9ZmEUTm nLKwp0A3WRDVngdygJu6hK uqE29xt1N7QgiaO3keRLHm WSYqX4UqVB3iJIHiUvi7DZ A1VXW1AGCeWONgA8XoJX5u PAQkmCGmHYt2p6mynKezGY TiNRQ0t0dnEZfafuQzUC6k lb5lqPk7t7qrgvMuLKSuLD GsiEREEPBzL6RcpOuxRw8k uUg4oLmgYybqKFU5Dbl7ZL 3jgj11nfg0rXlpIJVihnin LwK5MMqwQYIevbhmSBo4BG vcDOVdnST7LJKxvABxT6Nm KNCsDD9ijtp3PUV1TAsxOD ZhIdG7YTVrsGTsKQUgcHnp NWrmk184WJX8OpMkHQ0cH3 Whz4I7xW9cyEBcMTEhnYQz OqVcAXYgwd9ygZNlYGemm5 XcPII4mlX5tIXjeMPbAGLw TG27Jxvyd4MuUqgwv7KuX0 5glJH1SUrhd2xhCZ2lBnW3 yiVfGQudd0cztP3tCnC5TI xtNX1kOQ4gQRRzaO8ysbgt XHBnYnJkcmhlYWRccGdicm NzYb7rcKswFZS2PIinB8ov hG1fXdE9UVqlR3wvxM2eWQ y0TQkckQQ7JUHtoO4gUE9c zkcgw1brEXdpOZfrBNDxce Z4osI9JHXznTJnV5CecQ5a JFAhFL9njuvff5ogCSN6GG cjDLAxHTM6OtXfKWBqm7Yl nzc3BhAnp8PmgJXcXEujO9 1tz749TEHrvzYdD0evxTPs vqvlkZBftzmnCHxbsoU3FR QancTlv2OaXXKeGRO2ZSig LVeysRKqCLTuiTevp0ylN9 RscGFyXHBsYWluXGYxXGZz MjBcbGFuZzEwMzNcaGljaF xfWDanHgSsYXEiXApuO4xo OkKdQ3BcEIAhQlZapKVhY9 ggVGhpcyByZXBvcnQgbWF5 HDiyI0z0SAAtpjGjlOn9rp MfKbXjWGZlLJR4YHtaqNDm OHAqx3YgqgeneEMvGf2tqL IcIDExnE5xYRVnEFZhFAzr AO4hjWw4KBYQhBNxjZWxFa VNFJWdWI97dkFqQEYIpkdp b3D1OPzxCKOgt3VfuNKeP8 wxn7CwFRSfa02mKU6lt2C9 c4trLLP7DE5sz4CsENWgfX HenZGnXKDjj9Eckarln3Ip JEDgwuKjs9GfQFVinvBegY PyZZOdfrAvpk1dhyCmUTNs SZPmZ3RwwuwirLeblzNlAM Ovnj7diwFtZVS1USAGQHXl OBMxz9JuyS7ofZWXXXH0pF Yqig4snsYKhBSaVUDgaw64 KBYqBK1tT7pnCZXlAOPhha EkuORje1BsFZEixFU0vSGa DX4EOhFSz69vEMXxXVOEcv UwRZGczHibfNB6erY7oV6z IChGREEpLlx+IFRoZSBGRE YwYC7dboSbx9LhnyQdbAnz DPLtmLRym2XnyJXco4XxgI mbd5WvxYElnIRaXJ9iMECy clxwYXIgVVRNQiBMYWJvcm K0r3OzXKCwBRCoJUK7kRvy lfa3TYVhvS6xMIVsT9vnzl yeWGdaJZXjk4FnaI2bpCZO mFMhf4JtaEEivVPDwJLrMT 9ygxTqWLgOXXpEFDX6diNf QCLsh0BnJEsgC3qbO69qjU vhsVk6jAG6LVU1nU0pOwn+ IFxwYXJccGFyIEFwcHJvcH NaGQSurOdposTfL9LmlxPf dR8ifGPtdoTjKW9dVT2nQ0 X9kUDdENNycoIdp8ekNPpn dmUgYmVlbiByZXZpZXdlZC Lvv5LgVZgiDJE3IVtmuvTf bmNsdWRpbmcgSCZFLCBTcG TwnALeXXE9TLlfnyCwdcIt JW8ruT1miKlpzD7dpJEubJ N6yskfXOZmDPYqzEitFHAn GQ7shSxyfX7gKmGjEqAfOI myZJ5uELFpA8fnsBNeIBPd GCLtH4qrVtOhqU8pmKioOX xjZjJcZnMyMFxwYXJccGFy XHBsYWluXGYxXGZzMjBcbG FuZzEwMzNcaGljaFxmMVxk PqQxNXNrLYxjB8wjMzSuX9 WlKJGoXjOejDJpV1vbTHzi JHK6KFDkUJ1vpQOjYY29hV Nad0fyRFqmsCavkf8xL31a yJWoWIefiVpiGAYxe90yk0 GkUZFbjqRyrt3sCSHbryG9 bL6qXMFzdPplLTUfsBSjBP Bml9QeJPzjqEOoeeYrNQwf TUUkNDEmqCCsifC4ogGfyp QwjkNsHHNfbRfiMFTdo5Ut GNYyGHcuy7Kyxf2mxTPtFH VnjmNSsLbmhBNgoO8zQ3Nu QCRfUVBorc6fXJRteJ3zZS vhh3CwlfyxUVVrBBDmIISu xsPedi9jKHFsxNVZWT8HMV sbcEAsh4QnaqByL3tVABS3 NUQwNjYwMjgxKSBleGNlcH VpBHRgqs75BLOzjY9wdBxu CFQspU5dkZ4nwDrkzI3qUa DbNtLgKLfvOR4hOFQmC7ry bIHpJRCbLPXrE1wvCxJboK 9jaFxmMVxjZjJcZnMyMFxw YXJ9fQ== Embedded Images (test code = [id number]) [facility] [id number] 19:23:05* Test Item Value Reference Range Interpretation Comme nts Case Report (test code = [id number]) Surgical Pathology ?Case: [id number] ? Authorizing Provider: ?Dominic Keita MD ? [...] HPylori ? Final Diagnosis (test code = [id number]) h1npbHRiPKPvo3plZGDviE FuZzEwMzNcZnRuYmpcdWMx ITxsxuVsZJlyeZfuMCO4SD FwGL9mrUtxrXx7oHbjCZBj jkY0zAKuOJtxe5miWLC4p5 woxwzfXZEbWOyaEo0gwIEd yPjxPqZwYXZlKPw0oP56MZ LhvQ5taFRtOVy7UHWumWMo ngTrYmWmXJMifJZubTP0YY RmZW9lawwfCTrvWLchNQNf kwO6WPSqcLSaF9UfDRAfBS 9wdvopGZG7HVzkKBTcBSF4 WgIqVTMrb3Hsbtw4IjKcbW FyZFxwbGFpblxmczIwXHBh tkQYGgIPAC1KQRWHEBLES7 tPIVIEJF8NPYTLQsqqnPVg AHZwNIApRXZBWH6PIPCyQ0 cHHkHdQF6TCIQwKHNgeUGf HBGcxkOVRjQJYK2TRR2MVC wgQklPUFNZOlxwYXIgICAg STVbMDaVB6ONLHUqTJXNV7 DSGPkNNBnhDn2pYUNGAO5I E8qQV7WDZPJTGE4YDMjcHG KmPVGoCHTtGJ8SBDohIPLP ZG3XJEVGBTZOAEnFTNYMVH RILLfCDACVD4BDONvPZWRy mcngJCKfEv6kY9VQWUJQRD wgQklPUFNZOlxwYXIgICAg VGXvRZJZK5GAUrHHZG5DR3 5FTNNVXARKRY3TDGSVRXdA GZ1DAVYPDQJBTAKMD8VzxY FyICAgICAgLSBOTyBFVklE MB1YDFYKYmTBXJtJZCAaVO lTRUFTRVxwYXIgICAgICAt MS5RBOfhQGEREP6RRIUKJx dBTklTTVMgSURFTlRJRklF TIWBBIRTVV5SYy2SHPHXLc xwYXJccGFyfXtccnRmMVxz j9LeM9ImRoWgHSqbljStZP HrPkcavkheMQSbMFV7kcLt JJUmCPxfZPMhKJauFq6dnI AyfOohMcJbAQQyw7tjkjOH OPjpRuJpI500ZZXaLIaig9 qml3UgPNTblCLtq0G8VXCY qhcpqEa1i1hlFiKoXiV1uH MiWWvqY1gdnrLwnMZgV3Kf wWJvxUg6hYneS47qb7U7Tn iiL9jxSBHpNVTtA7FzNO0c XMPdVjn0EBH5MPC8TBDbAV VbL7YqSD0vHIOkeUXaXXk0 p3hqqDmnYKAePNL2v2goPX ezboC2DA9tfh5krYd8m4lo czEgRGVmYXVsdCBQYXJhZ3 ItsUpoIy0adWr9tGiuXize WJH2Lmv9VW9sgt48hir2jP toSRHyppzfIvE2RHrvOMMx jwbxBLm6OGqoXXIidUX3IR RtnYUdH1OoGMAjEI9zweb6 WOH1GMduJXCwOkY8KATlyI SvNKZquRdyOWvau726YNB0 AwZaTI0xV6Mtf0J3cF6muJ QtTICdzECbMdBdQLLvtg1p cDJrBZbne8TfRQI5vwW6mC NlqXTxMGZmJQ18Unwzj6Yt GdlfTHN0SVAqcwJtw8Qwn8 opLlPmkxGqY1gkN5EiIQYc JYFaJACwQvHcljPyo4Feq1 KpfZJjzLq1z8naAHKmILIi eNakw6zyVWR3YBDrG7F8xW Zvb1imENzpLYDifBC1igC9 ITMfdQRpU4VdgA4cPPWrMC 0vnsp8o0ymQLI2IKjsFQLg JiJ2clR8CIDnwDNgHIOcrU qjEWkft234ECT8KiWySYJt e3KcA6NsaKmbF90zvFyrB0 8lRBSzlUujiI5swFrqjM3u ZjBcZnMyNFxxbFxwbGFpbl xmMVxmczIwXGxhbmcxMDMz RFgrX3zeDqOkKXMvjNgtKA htu1CwVQNzXZRhNmosexCi XHBhciBJIGhhdmUgcGVyc2 9uYWxseSByZXZpZXdlZCBh aWolh5KzC6qxZI7kV1HgpV MtxlGsozZsXRjwJBAiv3a3 nOVgvZxoc0WocTHyII02ec JhEYWeHWF4ZEWtg2lqYT43 qffvNzIppV76qnZxokTzZK Civ8ueK0bhxJSkm2Ats2Qa zdGoLDnzw7CiWN4anJMkpj lgqIR9DBVgrHJlhmBcrgQ1 iQrbGMSibW3ouX9wcJxfjE 0dQdRpOgMsWTorVU6dIFYc K2bbvYQfDKGsJSVoK9ldRz CwpB3nqGmdKxtshhA0ARTk cn19 Clinical Information (test code = [id number]) Shivani Schuler is a 47 year old female with IDA1. Gastric polyp x 6 r/o adenoma2.Duodenal Bx, r/o Celiac disease 3. Gastric Bx r/o HPylori Gross Description (test code = [id number]) p3yllMUqDWGccVSNBZQ9YN QvYF8vbCqnaCo8aGjuUIBg lpY8tPVaCBwze4fuGHV7g6 pstjQYLfnaRFRsYO4kOJmu TUImRA0yHgMdTIOsEzAmAZ BhcGVydzEyMjQwXHBhcGVy yYJ9OJUcKX9rluxlNBbjDE gxXOZflfJ0CASouQJwV7Ki WREzHJ2ufmqmKCG3PZAPSf aqJo5gpAGkxQaoTeXxKaFu YXJzZXQwXGZuaWwgQXJpYW i8hZ9WWmheKJE4QKBSWjut VgouqMenh2BloOZzOUMeOV xcaWQgNTEwMDAgXFxkYiBP LoIfHvX0Ekr1MOE6XhP5XV i8LYTWXXYcMazgCMN1KsV5 QQy7OOIyDV0dTUcgaGYuUD uhKrrtMYsbI695ETgbHCSp P2UhK4YaWRokHcZlTMovFI OsLMRvYFktGPYwW6QPRGTq TLW4GfXhYSUfRTm4MHfhH8 UQPUZmATJdSzU6SFYnBqX6 PJn0JSJDVn9eFRbkTpZxXF l2SYD0PRy9XqYeHNKdVpIs SSRbZJAnDNwegRYxDI2jdM rwGUGgHB8WUCKsASbfZDUl GjAsW2XZS1oIUK3sXWpleC JjaFxmczIyXHBhciANClxw MTNpCD9GXFLrPMqzHNk2lj BiUZZfCuFcIHKzZ92re4QY m8NbJM4PFYj8aaXxqsldsE 3yMPTqblPgNXrJgMKlhN8t kfROFJdkYDBwT7ZmzqSuSG waJVXqsy2xlHxaYYeiTfZp bGVkIHdpdGggdGhlIHBhdG ovakUfN1Y9mjFiFC8kCCKL HEQndY5yQBEgZDKsc7QndT YzgLcdL2MooBCuZyCjb0z0 wHB6UVKvudGzYPYehDXbYG Veat2pYDtgSrYzD5E5DOZt VTMvh70omCT3rzYoGiLdbD m6gXAaYRS5QK7mkRwrlhSp c6x1eM7xRIZyp1S3HDZvj9 D7VMOwzwXjhQHgiEQuEGAt PN6ecoIpIS24HIGjPNzsVT wjELB2LFJ8RFMihGCcr9uw vdfcOu9kXOswGH0tPEftDE 52FCFrSOpfSMWqQ2PbE7I0 EFvyQHYpXTLsaQScuR6rzl QkjhUtwDn2LCRwRNN6bHCm qItnPQMyFwdedIZ5TXDgVv NmltEgz5KxcFa8aCXbCSvz TJVtcM7ncG6lXKZeHIMvla MIDmdaQYXlUAdcy3RqBOjw cGljWHNhMzAgDQpcZXBpY0 3lp6OFm7Fyw6rxxAskm2Ze nDPjLD3qxYUiEO6Ob3jnKJ FlkIBiUAX8HCtfa4ufZBom STQ6IEFcOgLzKEKcYB0RTr EkDGplGAd7PLueLPd9TDm4 EA4VIzKtWDHrUpg5QeJ7En HrZOj0PHtgAB6MVKZ7BVPj QLCfTDrhLXV3XLCwLRj0BR IgXFxzcyAzIFxcZmwgXFxu F34cwVLqBTcsVdZvXDjrpI hqNQSzGCU5TC0KQVIuPiWs N5XOD1kCKH0vOgjxtlJyHX FujbKDIgqvCZYiVX9NSRRf IQanGZl1dbQeRMBxRaVuSR WiL13hr4OXf6PhCA3NBKs5 miScmmjvsQ0aQAWozxTiq5 IzMFxlcGljWHNiMzAgDQpT lKQamZ7yzdRZEGzsHAYpB4 GnryXqDQtdBNQgil2rwWyl IGxhYmVsbGVkIHdpdGggdG fcFMHiiYuobaXwV8Y0mrTm VN8iGMQGBAEfgG4kIRFtNH QrBEKdBQCjlQ1uGIN9m9Wx sdUfXBPTKUWnyZgiPR55uC BjZWxpYWMgZGlzZWFzZSBh qtOzqiYev05sxbEhm8LsOM 5kqEyiMWrXTAnoVdCaJL0t ZYVnxfAbu0AjXV7sZPUvmJ IxDJQvatnqxXWgICu8lVKl SRNpPcUmjVgtw7GvRJKlOO jyVD46lrBgYK8iUUecWI0e TZshXS2lJPLxOVHiHHYlXb JgmOPjMgWybTCwVeUfE81c SxMKkYSha1QyK0pvXM8gtK PbKbkakLDpNQXipFvfu6Qh eGDjXQFhb3FjnHAhEBubVT 5lQZS4Dz3sfKGqJPRggjJ5 c7AgAGegSMMbFxsfKOYfTK nmy3AnRKRfmNLUy8UsBL8G XHBhciANClxzYTMwXGVwaW ZOe3WkVQFEHwzrqDolGwBx gIHfNjF5KROeqRIwITC9ZN 5zfPtnKJWzJNj6UHboUWEl G0WnT5NuIPlgGgUeIGviME MtSCEkRAacGZXwM0FCZAVg PCG5ToQvCDVjZGf9PEdhY0 NCPSRdNMZcXtI9UWX2YrL4 LVr9FTDACm8xROifQwFnTQ BuEwR4VQz0KqYjYCNzIrBh PADpAFIrMNrpmODdKL0feI mmVEVaHLUeEIO8UMBgkPKE k7DpOXAtATqpNdPsKOZVQS JQGN1KEsCLFFFzDtPrfCAm SM8BPOMievVxANudiYbovG 1rzMTqY3hcKzBiIwmasNrr TmVzdERvYzEgDQpcbHRycG FyXGxpbjBccmluMFxzYjMw MPXoiUWKl3VrVZPVYyFpDX NpbWVuIEMgaXMgcmVjZWl2 VTIggH1dKx0wjGMgjK4uaT JoZHqaTUMge9a4eAG9vIOp aMW1lSInxHupFiKoFH7kvG ZuPXSYCI78zCNklkMfJZSp hQ1hIXMxPHJnOFJ5xdysQV SHJWX7tMAtg8Y1EDasQKW9 sC1omJwkIdPaJ7A5VQEpZR Irw24hiDM9ciHsRkQbILWo hn5znO8qWYtzqqLvbMtvhz Jjt1A0RZTio8U9DBHculWx cJWwqYUjEEAuRlB8LBTiIx X7OCPmKZHjcGKaLITaSN7h VGhlIHNwZWNpbWVuIGlzIG VhcLJhyrUkEXPcxa72P7ev JMClcD1ry4jlExHlTNUcSZ TlgHVigWH1RYQsdP1pyO61 tbPiiqJCOQ9dxPJrQU8VUA NiMFxlcGljWHNiMCANClxw XCFxNYkvd1ZsPTtawPvoOM NjAsFoXFnBcLtjBNEOM3of pJBdHBvbJGHCJKcFQ3ETSG 8OHCWixLQOWGA8NF1sRHdf ZOLqL1UbY8LwraS4c9ifnE iaw4JgaXFnIL6vpPMdGA4R XHBhcmQgDQp9 Disclaimer (test code = [id number]) i6wevJOpSXYby6axQHMruE FuZzEwMzNcZnRuYmpcdWMx CAtnnnUmJPygc5MvO3JaBf AwMFxhbnNpXGRlZmxhbmcx XSXjTNR1wkPlFEPmTPnuLQ AmRFifQz3khWMreLfqFuQa JGMke9ljlsQUCLnaWlObE2 74HEAkFWemg3tsj6MaKZAh zEJad9R9ZKCKngrehZm8eC wgZ96dm3F7SxgrL2gkEDOq VDFjE5AkBK5rKIVrKfz1ZK P3BAD2ZEHiEXJmJ0YqRP0v ILEhqHUqNBk2m2prrQmdLS DaCCV0p7zrDWlipjPaFA3d hh6yrWa2u2krovQvPBUiOF TaqQRTNZVyH5QmpSawOs5y kRl8hIxnCmufHBH5Bmq5VR 2rac63prx6vGotMUWmiydj QvZ6MKphWZYksdfoVLk2JG rnEMJvvWK5BQEqbIIzM3Me XKAvRY5qfoh9FRB1DLprBM AdAiO5QFMqrULpZVZxvTqi LIxhl125JOU2UbDeFO0mU9 Ara3Z5sT8pdCIfZKHbdTUx NhMzLUJmam6zeCMsYIuua3 ItEHY7gsH4tQZccOHiMRWj FA03Herdo8RwVonuy8MdI3 2sbMK9HRgxg6yyCD1xMbA7 vvIwYSjyc5xuwI1pNdM7BU txDB0oWE4wCGJxhU2vpevs XHBnYnJkcmhlYWRccGdicm TkRl0azEimEOI8SLzsG8sj eS9xBvA2HPmyV4mvcX3gLP l1VFkgyRH2TEEbkX1yKV7o nmwhs8moGRbqIFdaWGBgbh S1mzP8WXPxcFAtO5XfpQ7y ZIVbCX6fibjll0ioGNO4NX omISFsFAQ5OvIlNQAou9Nx iid8QoEnc6MldKNrWKgzS6 7fh095LWQasfBgV5rieWKi mjgdeZCmnrqzCHjtefZ2OZ AavkUbp0DeWZVsPZA5XIjy PKnfuDNaYBNxhNlue2xfO9 RscGFyXHBsYWluXGYxXGZz MjBcbGFuZzEwMzNcaGljaF vkZOqtAwLlGPVhIYymC8md TgMxV3DxIRCoYqUzlFXgN8 ggVGhpcyByZXBvcnQgbWF5 SYtoS0l0FIWgrdEgpLi8ct IzXeEgOESiHNW7SEsxcSGi UQTau2LfjvadpOPrSs8eiK RxVIFzcS2oUMJjKOJmPWok CS5lgRt2TYJMqJOquLJrKw VPPSIzDC92qeXwQWPHpryg b7U5MJyzMUWxn2IuvMNfX1 fvn2HhRFYsc61vSV2ec5F0 d2hlFNC2ON0js4ArQGAxxY LimCPpQFWpc7Byswwif6So BWPihfIal2WxUFUenpKvkT OhNHOgbrPued4bgiTzSCRp ACYzD2IlyhkugQrctuZiIZ Nbxm3tsnMrVKR6VWQMLUKe FWUuu5NmlI3fdGARFRR1jR Rtcd3iyeZRgFNvYECbwz28 GYKsGD7oD9haNKBqHMBwkv UqfKPjs0MkWEGkxEI2wXBg VE2ZPbUUj38iWXSfXADKzk BvGZDmgYwueBH5suJ1iP9f IChGREEpLlx+IFRoZSBGRE ZdZY5jidVpx7FuvkWazGga LSLdfEIts9QatYWcl3IijU ojb2HyhZXjlIFiVC7pYJIq clxwYXIgVVRNQiBMYWJvcm U0o0ApEESfABOpOLF7tJon mby6CJVnfH3kWMVcI4derz euNKghVOIgv1CriC5kvQLL eBZak6KsyZQtpQAQdPXmDX 3juxWiHYgPBEaZIXC2yiTr JTKkr9SaVAanZ7zhB99jdE xugXo5cIV8NUX8aC5xBwc+ IFxwYXJccGFyIEFwcHJvcH MrAUYrqWuorlRkE2BxcdKv wC8byVLtleBuPD8sGV7wU9 M9zDQmHHBuetEch7bkSSws dmUgYmVlbiByZXZpZXdlZC Hph6IrJQnfFID6JWyrlwVy bmNsdWRpbmcgSCZFLCBTcG AgeNIrUQZ2FBjyheCxdhCk ZO1uoR5dnNqnyA2vfQCeqR J5rfdzBLJdIHMsnZddBPYc QN2shFcglH8zFfUsJfVdHC jkTD7gNXHwG5ftkVTuCNRt UQHrO0gqBtXdnZ5lgVmwHK xjZjJcZnMyMFxwYXJccGFy XHBsYWluXGYxXGZzMjBcbG FuZzEwMzNcaGljaFxmMVxk ToEmKPMpDLbyL5qpHbInK7 AuMLLnEsIoaDZfE1apXKdj UTP1ITDwHT7uyVXmCX98rQ Cfm3ydSPxqgAiorj3wY79g vAQgWPtfaDmrSHLlb82ur2 IsEQVbxdVpee7gXFOrhiX4 zI7nOFJctBrqCIRxoNHoWP Gfx0NsCHnnjBDujdOtDLcc JLDkEHChpJTvdkH0eaGcuk CxsyUfXFXdoVspWHGvr8Ck SBHnWQztx0Jzjt0jdEEeWV TgrdSSzPdtuKGozR6sR2Qc TMHrQTZrya0mDAEjvS3eIN flu7KcqujaLNWgHPWtWFId erRhvb5aZZXfuAWHAC5IIW hqqCGpk3TpahEnD3qDAYG6 NUQwNjYwMjgxKSBleGNlcH RcNLCsrn12LWEocI4ujOty FSSezC9snV8vdUzoiH3qGn NrWzGpTYxxMN9kFMVaY5df kVMfXDCpDTHzN2swOnEmmF 9jaFxmMVxjZjJcZnMyMFxw YXJ9fQ== Embedded Images (test code = [id number]) [facility] [id number] 19:23:05* Test Item Value Reference Range Interpretation Comme nts Case Report (test code = [id number]) Surgical Pathology ?Case: [id number] ? Authorizing Provider: ?Dominic Keita MD ? [...] HPylori ? Final Diagnosis (test code = [id number]) b3dwuNFvSAFnc6zdKHFggO FuZzEwMzNcZnRuYmpcdWMx XCifnkHdJQyqxWaxJDV6QG QqON9cqWsfjWv3bRhcCZPy axZ9pUYmQSdsg6glKBW6f1 dykoapFNZxXAhuGt5sxQAd rVryBjWbVQAbHKt7gD73TT EhbS2lbWZlWVb4ZRQlpGLz tcJqBvPbVTPrvYOiwUP3QN ElUT5whssxTPahIGxiFUSk geL4VJHccBSwC1CvKBPmOJ 3tlsonFYQ3IUxxTEEpQJX4 QnGfAYTyi3Lcqqc6MyUafK FyZFxwbGFpblxmczIwXHBh xrZKRkCJWV0GYFOSRXSKY2 zOQEAIPN7FLPHREaggmSHc KKZwKFJeUWOWNZ4VJCKoD7 qZMuYbYC3TJGHjQBZlvRKh RBBbpyYTGjJGNT0RNJ0VLD wgQklPUFNZOlxwYXIgICAg KQHqWJyHY5MOIMJlYTIWA2 BXGKaSVLleZa6tEUXTVO6B Q3kFZ9NMSWRMTK0MAUjjSY BvPRUdMEYsBW4WUPzlHPNF OM0JUFVXYWIXLUdBVADPLU XELWiOOHZFG8GIAZwMGZCz rwdsOEJnRg3uS5PKVTYBWI wgQklPUFNZOlxwYXIgICAg YCCgJWNBX2NCXhZNPX8WT6 2SZBYVWOGWPB1TYZBNJJuD ML1FIAEPMCNGOYSOF3JzeB FyICAgICAgLSBOTyBFVklE AD3YPLFLJnBQKMfKTRIsDU lTRUFTRVxwYXIgICAgICAt WR8JJKlaAALVNE9SMAXGVw dBTklTTVMgSURFTlRJRklF LIWRXEGPEZ3GAp6MSKMLXo xwYXJccGFyfXtccnRmMVxz n4FhR1DcCxRlGOelroYkGN PpYidmwbjdLIMkMOR5rhTe OIPwSKbhMMPsNKjyMn2mwP UlqEieTzKoYTNwt7gwhkNV FYauQhAfY944XYEvAAzwt6 otd6ZnLQLmwIFzx7M3WPJZ yfhjnYf9j9jrAjCzXjV2hW VpSVuiD5tmyfSujZHfR0Ky tAFggBc7mKthZ00qw2F5Hk dwC5ldUBSzSUKxU7GcUX9b RYJkTrq7CCZ9UDE4LPAcEF WuQ8PhSW8yXEDldRHbMLz0 v8ozlWbeNZHyYWE4y0fjIO xjkhW9ET8rom3kzAl7t2jj czEgRGVmYXVsdCBQYXJhZ3 EkeEzxZm2vdCf4iQnrVvnd NBP0Vpb3AH7bod43fiv6kL ykCKBcuymqBtW1LOwxVEFi hvxhGUq0XBntWNGglZD9XW KowOLdM3UsKBHjLO6piva6 AQA6PUcwCNTnDzF7MHUzvL MqSIKtdLqcHIxkt968JBF1 CqIiWE5rK4Giy7S6pP3siS XdNACrmYWmBpTbXEHvki3r mXCbPZapw3CbYTQ5ujZ0yR GtgNRfSGMhAI89Dptcf2Ju RqnvSUB0WKJwqtJqu8Fnh6 ajAoStbgFfC1zqE0VwDOMj OMPdWTBsXrIwzbCjl7Nhk4 MezBKjgWn1n7dwSKKlTNAw rYvrr2iiPQO6RNSiI1Z2fP Okv5cpHKibGPZmmBD5pgA3 GUFqvRIcB1IsnM9fPBJkON 8axjr6s4hkKMH9AGsnOQMg BfC0kqX1RFGslXXsPZDbqM psQXltq667VIM4ZrDgURWz b9ViU6LuyAcqQ89lyVisF4 1hOSUuaOtysR4jpXkihA0y ZjBcZnMyNFxxbFxwbGFpbl xmMVxmczIwXGxhbmcxMDMz HAdfV9hfViIzCYQnrSqkVP nmq9XiUAApKLYdUhxwsySn XHBhciBJIGhhdmUgcGVyc2 9uYWxseSByZXZpZXdlZCBh gXnku9RpJ6weUJ1tY2GgyU ZkxeTsjgXuNAwvEUKzp3j4 dFIfzCvit2RztNEcVI36cs QhFPSdICX5ULUve7xfLR96 bhgiZsQijA45bbZygkMqTZ Hal5ieI8lmgQIck5Bwj5Hk vbPoMRrmz2LwZF9tvPFgvu anfPW7BHIvvYCtlvGumpI6 iQfeMPZqwG7efW5ruIeloW 8vXmRxRoTiCWvbMO7zXIJo H8yddFOyXXSuGBRzY1lpYq VegA6qtPggBfixngM5VFXl cn19 Clinical Information (test code = [id number]) Shivani Schuler is a 47 year old female with IDA1. Gastric polyp x 6 r/o adenoma2.Duodenal Bx, r/o Celiac disease 3. Gastric Bx r/o HPylori Gross Description (test code = [id number]) d5kbrHMmECYxlPVXCKM9TB VtNM4stVzyiLh4vUsnMZEm zxE2wOIqYPjqu8szPDV5j5 imlrUYEutdIKThIK0pNUbe UNZdVE1vLlKaUFWdWxHrSL BhcGVydzEyMjQwXHBhcGVy bIG8UGYbGW7pofdsRGumDE naZNCssmQ1MJGywOHfA7Tb BRUcDX7ieyaxBAT8JQQZRc vrSh6iwPUkkNehIrBhVxHm YXJzZXQwXGZuaWwgQXJpYW p4kT3VKmnuPXR7NVBFDuzs QeuorYemf4NvpSXwGGYmZC xcaWQgNTEwMDAgXFxkYiBP ShEyUeQ7Dyw7KOR4DcC2XV s1JPWTGFEdNayvPUV1OmK6 PKi2KXFbPK0tGHjfpLJmDF mtWncdFKrnY801ORwaBMQj L4JjA8FpGLygCmQvFBenGZ AzGNPyJSzoOINfG1QXGJCj WGD6ZkWbTDDtTFp6CClyA2 ALQUCnCWFvIzH3AXSyVeL3 VGn3HRPJRt6kOWpxShZuNR t3UWR3QCe1KqTyBNCkGjQw RODjZCSfEMzsdINdSS6imW tjDNKdSE2BSNJaKGpiAEDq EnBdR6FQA6vCHX2sFBgeuT JjaFxmczIyXHBhciANClxw AHAfHS9GHOLvWBtbEEh0ad VqBMYpYlWgVOHwC73jw0LF n1PcNP5NFEc5ldMuzeqcsV 7qDIRnbaEaHDsKqPEexJ6z zdJPZIfeSYBeZ5EoodYzSZ rbANBdoq7bgFivSGggQwQf bGVkIHdpdGggdGhlIHBhdG mnmaJlR3V1gkKdOC2dXCUW DHDvtG5rXTBgNNNlt6VtpT NigRudN9LzuMGzMiBzy5d9 vMG9ZXWjklOpUBCbzRXnYA Qwxz2rKYewTaVtM4E8HFTf UBHbv30lnQV4dnSyYhQtoM a6tWEtJHW2AH7uqEgkbnSc j9c0mW9aMRHit0H9FENza1 T6BOUgdrVhyTJqfQWpMPSo GZ7bimNzMC11IWVaYEpbRY jdKCO7YNZ8RULrfDFsh5yy agzlBe9pAIdwQI2fKKnbQA 10RDRwLYxoXBIdB0QtQ6B7 FYoeNCGmBSNqdKIekR1nje UevvVzvOa3NHKcDLO4lXYl oIrvNABfHzllgVL3JZThFe BqnwPrw9VyhIh0dLFiFHmb JZRppY2jiE4vIZRjKEQhhm ZWIqjyYDZnKTjgr2VwJCmf cGljWHNhMzAgDQpcZXBpY0 7qa4GFg2Rjm8vdbXljq5Cq bQAzYS9suVBpFT8Ta6pwPT TubZQtDCM7VMwvw0mlCIhs CRR2RRCkFpYyCLVmDJ4HQs NmJUjrTLi5XTiyYQv8GJo5 ZY7YThWqJDHvMro3HdG9Uu AjADm9JDwdGJ4XWJR0NQLs KUHnNDalHBS8LGIvPYk2FT IgXFxzcyAzIFxcZmwgXFxu D52zyAMgWHjxLhOyPWjcwU jrMSCzGLY7KF9FFSJmXjEm W4IMW7aIIM5jVegfjtWnFR IrslPTEhpnSBLmBH9XIJPa UZhzBVo1ejPcWKLfEfEvII TuR07dn6FQy8TrAQ6IFVm4 frGfemnauF9tNEXkejEln2 IzMFxlcGljWHNiMzAgDQpT oSOnoF9wpqBNFGxkMCCaH9 KoabXcMTfuPVMlkl5voEsq IGxhYmVsbGVkIHdpdGggdG sdABBghHhdieEwV4E7mpDm YQ3pSLHJIOBheE8wSEFiYT BrRPHqTXQdoX9cSDS3r9Ec myLzHJVAWUGtoHvaYK38uI BjZWxpYWMgZGlzZWFzZSBh xuVlmvOgu30nxcDhu8CyRD 7weNltIFsNZXyrFvMjBS3q BNYrllQvc6OlSW8kRBUuhS UsOUJerokgxHZjSLj3qRVq WGSsDdGuzRwdy2NqZRLxBC rrKG74keXnUB4jIHgnON7g DOupDB3yIZHxJVAdFIYqNl BrbLMdAnZiaHDvCtGlA49p AeTDgICro8JpS9wsTM2riC SkMofcnAUyLOYkbVzrc7Xe fUGlZOYvh7PnbWGlNUyxHZ 9jDMI0Js8zeWDgRMCcgoZ1 p8InNCkbBDCqWbozADFbRZ yej1FnQTUqeFBFr9ThXG1V XHBhciANClxzYTMwXGVwaW ZOn5QqEKHPNbnhoKgoTiQx qVSvKoY0WGCglZOjORU7UD 6tsZceABHrXSt1ODzgUAOk R6PcA8EtRZguYnVjATqtEZ JqQNJmSMynQLLuS8IBATNf DMB8KlHeUWUgUAi8EAbxL7 TYDNRyRUJeAyR7VOC4AdP9 WNm6HJRRJg7hKVyzMfHbXV ByRpH9ZEt9EcRzVPKqChZt JCIaAMPqWBzdhVHhEI2fuW faBFIwXJPpFKO2VMDxoIGP u5ZfYVLuMScgPpFrONJDUQ GBDO7CXpSBJKOqWjEuxVHp KC3ZSKJqfwYvRDyndJywmF 1myKKpJ7wvBiWxZgdgxNbt TmVzdERvYzEgDQpcbHRycG FyXGxpbjBccmluMFxzYjMw BMIlyNNRf9QxRAXMMwJeZL NpbWVuIEMgaXMgcmVjZWl2 TESvoG8wIg4ljYDiyG8krS EsMSssDCFyx0s0aBY0wXOz iNJ6aDRztWxzUgLqLC0zxV PuHTICBR12tGFykcMoQSLb qG8lYPRiWIDkQQM2cskbSK MWWPK4qNUfv1L2XBgwCVZ0 lO9seAekSkZtR4B7RLDqUU Eul99dsQX3hoDcVpCpQEPn jz4eoL8aEDftvjXbhOmaig Dvp0V6AOQtu9Z8BWXyyjHo lCInyYNeFRMiXqL8ZJYkQt D4HRRkVHYjuBWhZTEkSR6s VGhlIHNwZWNpbWVuIGlzIG SpjPQvwsBuXXQpzt22G2jl HHOuwL4ap4lkQmAyDMFhEU WmuJAkvXI2TMCdjR3sgT95 ykGroiLGJN7foVPuYZ2XHB NiMFxlcGljWHNiMCANClxw LODdYGdnp6ErDFnudYvhVE TdMrDkGMvNoLniGIRLM6ay mJJmMHosRWYHWZkJQ3BUSM 5ODPMlcPIZZGO9HX5mJQga SQWqY9FbA5CqwaZ7x6iqnM zbd9ZdpICiGK9irXLwOO1A XHBhcmQgDQp9 Disclaimer (test code = [id number]) j5myoGFcBPLmn1kdPQIdnP FuZzEwMzNcZnRuYmpcdWMx BHttjbUwHIjux1LiM0WtYa AwMFxhbnNpXGRlZmxhbmcx PTLcAIO6nhHiMHPdGFquKB EnEUqpFp4ueUCgeUqxAwFx HLWzw4qjxxEWFQvvZxJjC7 00YNIjLDjxx5zwb7WtMPHl gRKas1Y8RVCUizsckNe6iM knQ70tb5M5BfggW2ksVMQy BZZnK2DzBY1lAJNwVen2FC Z2AKK1GDLdCTPvY2OcLH2a ZAZvvSBoFIw5d6norSqvCR StFVC2y0xtMWypsoBxPA0y xz4uxAz1w7ultqKlDPSvBM NsvMLJWLHfY8EdcZyrZn1z eQh1uQciNvpaSSA0Iew9UD 3njn33gwl5mMlpERAidmmz IlL2SKseQZGaiuypQZl9TB glOOTxrRK7BFDaaVNvR1Uq SLGoXG7hezh2MHP3ZNjkKI DnElL8LGLhkCNkVIWciVeo IHixh738WZM6IlDrPE6cJ8 Cdq7J7pQ3ebTVtPYBfmFGj JcAuZOZmfy4vcWPwKUpld5 FgNRS5weJ6aDCxkCCsARMp SV46Jatzb2UuLllzo5CxC8 1fpIH4PFhsz6goCC2nVkV6 keKkWXhhw6euyM0fGdL2HY ocPW3aXO5sXEWobL7npuzw XHBnYnJkcmhlYWRccGdicm KyIy0oyHqfPFA7YVqsT0zq oG3vXaX5CVnkJ8yqbE2aOL g5VWvovJV1NRHixB7oPQ2m rubmr9yhWCslUZryADSybb C2hxP1PCOvmOTqP4QdgZ6t WPYuOP2fsendz1kcUMY1QC ytBDHqHYF8LgUmTXAgm6Ni xix4VsKwq8YccJVgCCifN8 2kg026AHLgolEtF1cagKYo offfbXWuyyabTKnpqpV1MX EvdhZka0EjHWMyFWI1DAzi LBeyyXCpHYSauImou5hxQ3 RscGFyXHBsYWluXGYxXGZz MjBcbGFuZzEwMzNcaGljaF hkYDtlKgUuRMWpYSehT4vb RtDpS4NsQXHrZfWzvQWqE9 ggVGhpcyByZXBvcnQgbWF5 UKcpS1a8QDPgalZomHo6zy KdArPiFDDeTOZ0RSmeyJQb STOzs8GosmjhpTLiXj9weX VqFNOirF6dXADvQXNaGEeo LA2xzFy4REDZiZHqyVEhNd JJCTXvXB90ccJtJMTFfnyv f9A0ELxcYDSon7QruHDgN3 wtn0ZlUFZdu86yPN5hv1V8 v2gtEIT0QC6iu8CdXPIgjK TosUHtYIJmc6Llqsjtk2Ma QWQuroRjy9FyGKIwapTdtR NwGMOlzgSvbe8gdzLpWYPn DXPzZ8PodufvuJknexNgBQ Fwec4ukyDuHNX9IEYDOIVm ADYey1OvqM7ffQTFTUH9iQ Ncgx7soiIKaPSuOFIcde41 ISCtSO5nH6oeEKKgKATkrm AvdVRdp4VxRREebRC0mWNi ES0WZpOXm16xBAKjDRNQuf KjRUSasZieuMZ8zfN2oF5e IChGREEpLlx+IFRoZSBGRE RwKY7tohIcz8GkfcPuiRrg JGGokWWny5VjjFMqr6TueY kua7RgiIFohHAlVX4gMCOm clxwYXIgVVRNQiBMYWJvcm R7y7WuZEDoFKQnBFP1zMtf vvs4FRMggS8sVVYuP7sloj zaRIxaHJLrs0GyhG1rwDQA hXWwd4WslOSrgPDGjISrKY 2oiqVnQCmKPDnHQIM5dlLp YRKwh7FxJZonH9jjA68uyH tekGy0wDN1IYB4uY6rMcm+ IFxwYXJccGFyIEFwcHJvcH GeVJEdcCgdocXkA7TygzUe cG9ojXMnifEjPU3rME4yA1 D2cGJoKEWtkmZtf3ioEWnc dmUgYmVlbiByZXZpZXdlZC Ecg2ZsUTjhCMN0XWwjpySe bmNsdWRpbmcgSCZFLCBTcG PncBBkESY9EJisyxEsteUh NI4gvH9scAvouX5iiSIgtD D7ydcaFHMkSWLqjEbsGVTx GN3zfVnxzW8dTaKcPgDzOH abIZ9pPPQdF0iysCLxJXDv AJUgG5nlEvUkzH1hfLlmEJ xjZjJcZnMyMFxwYXJccGFy XHBsYWluXGYxXGZzMjBcbG FuZzEwMzNcaGljaFxmMVxk RfIzFGNaBSufS3uyOfQvE4 QzOKMkZuYbeIWbJ2dzNYqo KTW7QFLsZK2cwJZcUE76xI Qrz5qzXMptnEwykj8aL58u uCZgWCkokUvpQRZtp38eq0 ZmJLAwxeGxmj4gWFNqkcI0 wC8mLFFfiEldOFIvsAEkIM Rci9KgWFsqbRNsiaVdPJaf UMFfBIVrqAYlneN5cfTqvl KwoxUtVAThvNqePDJng8Hw IMEuMJqiz4Bsbd7ejGVbIZ RtjdJJtZbwwNRtlQ2sU9Hv PLNpHWAobz9aCQRdwV7yEB vme6IhtqsqYXZuFFLpINKt vkTtzt2mWINfbRKGYM7KQT ympCAmb4LvloOjM5aAVEB9 NUQwNjYwMjgxKSBleGNlcH CuTTJtft11DXPhbW9cpJxq VIUjmZ2ixM7veWupwM6tXq NkCvHyXPczSI5bDSBmE0kf lBGsEONxLJSsV6vlQjEfeK 9jaFxmMVxjZjJcZnMyMFxw YXJ9fQ== Embedded Images (test code = [id number]) [facility] [id number] 19:23:05* Test Item Value Reference Range Interpretation Comme nts Case Report (test code = [id number]) Surgical Pathology ?Case: [id number] ? Authorizing Provider: ?Dominic Keita MD ? [...] HPylori ? Final Diagnosis (test code = [id number]) [id number] FuZzEwMzNcZnRuYmpcdWMx LXfuguSyKAyxlLahZHD8SQ WpZH2umPebgWz0iFawRNFa yxZ5hHZlSMqqv6raNIN6f8 bpywfjDHImFKzuHv9chIGm rHyqCnGwCKHiVCt7iZ15OA NqaR0gjYXyPLv0LNZiqOQb loVtWnNiMLOheGSznGV1CL AzDO9skhzdRHssDUxlGMPz teS2XSBrvKZzS6WnHVQwUQ 3npnfeMZK0ZGrxACMrSAS0 QhIlZIQbi0Bgtjk0WtTxgI FyZFxwbGFpblxmczIwXHBh zlJTHaTHAC3KHFYILSIRC3 aRFPDAGG5GGOMNZimraSDh TUZyPAOaLJZGWO5NRJNeD6 qBTwArVQ4SNOJqXVJgmTNx GBDkdhLNDwYTTB9PLA3ERS wgQklPUFNZOlxwYXIgICAg XUFiYEsCN2HCPAQfNPMTC7 SOEHeZTPifOg9nBFASZV3E I4dKV4GQSQUHPW8EPAuyTA NlRPEeRQZoPY7FKVxkEGMU YV7YBGECBHKNIItITXYEQK OCPYoRFGNIX8ZUWKgPNQWs razlNXLuQt3qC3JFXLVIQZ wgQklPUFNZOlxwYXIgICAg ZZQuVROWK6BWAuRGEU0VH7 2DFCPQEBRMTI4EDNIGPQuW OI2NROCBRKYBRTAWE2VgtS FyICAgICAgLSBOTyBFVklE QO2QGEKIGzBXLHpYDKPqAH lTRUFTRVxwYXIgICAgICAt XO1LRCfyRGBOAH7PLBKJCr dBTklTTVMgSURFTlRJRklF GPJSUURSLM1HNq7RQTCLAb xwYXJccGFyfXtccnRmMVxz q9NfW4SuBwMdSOxglzGhTZ OqByvxpotxLGDnWNN8scSt KKWgSXlvEDBzEKknDu7ytO DtcUdoSiGbVFGdx1behpMQ HHvfJdWxX643ESLeMPkrc8 mpu4DwJMTrgNCot2R1TLKC gqhfqYq1w6muTrByYxN7nR IbQNulS0gxomFppYDrB2Th oUNuxCy6pPxwV31zp6F6Dj puG6stXDJeXVQrL6PgHZ4s SRFlSgt7QCJ0QLI7KCTyFO HqH5NbXY1lKIKmgKUwEBd2 h8jzdXqoIOTzIKY5s9ewEQ abfyO5IK4shg8rgKy0s3le czEgRGVmYXVsdCBQYXJhZ3 UcpBizLu4vrCu4wFwcRohv BFG8Xcv7ON5jar60wfs1yY qvCCZrpjesIwO5FEpnHFHb skuqCPa9USvoRAIonJF7OY IlpPWzQ0MnVUShNU6wusq0 NAS4VPcsHULuJkO7PIMvgQ TnVNMbkKjzUCfnq424OQS4 LfPzKH5aM2Bsw4J9hP5pzX OrEQWcwLWkCxWdOGMjst1q tGUbCVsnn7OtPWR8isW4yA WeaYLrKITeNJ63Tlahe1Ud YfneRLT5DIXjesPyz4Esy7 edKyFkawPuL1ssS7ZxWGNg XMEcYKHjHbLcdfIli7Vjr3 HlbZTlqBm8y8upLKDoWSPt aKdim4ylSDG3DERoE1U0cC Fox1ybUJumXDOsmPP3xpB5 CSYxxJLcO2MnlO4hJJTiHC 3euge3j5jwFZH2AOclAYQl KlC9pzR4AUHqpHWnMGXzpX mbBPzhh119OQF7AiQcROQp l6SvF1LsdAkqN44pkDynG0 8qLLGlkStwwR4avSxhpG8d ZjBcZnMyNFxxbFxwbGFpbl xmMVxmczIwXGxhbmcxMDMz HBcaM3dmEjZzKPUdmAkqMA ywb1StSBUjPDKjArzwvhHa XHBhciBJIGhhdmUgcGVyc2 9uYWxseSByZXZpZXdlZCBh dEfqt6IaO5psPE9rI9LblB HryuWwmlOrUGsxMWKjr6v9 qVVgbWnea6TuxRTvOD62qo IpAFDpOOE2WUBxo0wzTK69 nimoMpGozB97vgWpweOhOA Bye1trC9tkfXQav7Swn6Kc kkKrVGdpp3SmVP8ycEThqy uktGL7GNHkwVDkccGmcpN9 eBirWTWzyR3oaS9gnQeleB 5hVnNhWlXqNGcxGL5eDIWv N0yuuAZmZBIzORFmN6qjEp TzuD2tgOqfXnsrbpY0BSLc cn19 Clinical Information (test code = [id number]) Shivani Schuler is a 47 year old female with IDA1. Gastric polyp x 6 r/o adenoma2.Duodenal Bx, r/o Celiac disease 3. Gastric Bx r/o HPylori Gross Description (test code = [id number]) k7lprCVjSPQegZFAEIG2RO QrZD9veMjopQz7cFmvMCCo scV8tRMiSCqif3ckAGN0m6 xodgYSJayeXKIvRX0tTUni VIDwYO0aWxDbPTSfIyZxZE BhcGVydzEyMjQwXHBhcGVy eHW6MMLvOX4rulgjSHbjLU rgJFAvbnP9IFMvmQSeQ3Qj WCTwCC2ptcenWZS0KHZWYp koNq1pmZXltCqwRaHmQaAl YXJzZXQwXGZuaWwgQXJpYW j6hR7LAqlcUFV7JKVAFjli VdlnsQlaz1UqzHOhRZDzNB xcaWQgNTEwMDAgXFxkYiBP FmNzSoT9Sti1WDC1TzI0TZ a0FKPRVZWwImqeOUI9NkA3 EFq9IZFtUJ0dRVrdqWFvOO rdYdeoPKggV040RNpdLHHj U2DdB7DkPSbkZvOsKJieTQ DlZUQxVHfqVNZlM9TKQZYg ZVB1XsRfVEGaWPv8YAwxL8 XLOORaHHJtAhM5GYWkLeN0 NAp0DAITZp9gJVnoFoSgTH f2QLM0NTs9JxBiITLoLqPx NNLoGREwXFibhKEnIE6roA keQUNnDF0XPDPqRRsxBRQy OxEnC8OAN4sZIS6zGMctlI JjaFxmczIyXHBhciANClxw CCAmKE2JVQOeGDjhWWi6bg NeZLNiSmBbNSUfS03lz4HI w3RsSV0VZPe5bkWvxuwcfC 4ePSDqboIpYTlIuDRvbI3i vfMKMAobEVHyL1AteaHcWN whRMWpql3odSsvKJtdHyXs bGVkIHdpdGggdGhlIHBhdG nzsrErR8J4kdIdBR6cKGYD RQQbaV0qUTScKQSwy1RpiR QrsUlrM6EfjMTxKwAan4q1 gOE5ZLZtcpZdWNQqpIDyKC Qafs6nSFutRkVbI0T6HQSc WZUhf06ygDB9wfAfQrFiiN x1vKWfJFV2SY2xdHmsheIs n7z2wQ3gBZAeu3I8CWTrt3 R0DCJritMqxPOxiIKrMWBd PQ2icfWpUG80ACIsYRkvHP pjJKX7VZR2SLMxdBSvy9ev etjvSg7eFGafUH1gCLsuYN 32QLHmWIuxZDUrB7RvK3B4 DLqrKIJfKIHrpOUakZ5xjv XygbFkfOt2ONUdCTR2bCXx iPauWJMlDuvnhAW3COGhHn GxioNvm3HmtRy2gNWdISvt AZHsmX5wdZ1kBJOtGEEdyl CKFjhwOVRcMXapo4WjJYaj cGljWHNhMzAgDQpcZXBpY0 1wh2DNd0Ibj6occDuvi2Wk rHXcRE9ewUNkLE1Rt2zlFY OepRGnFSZ4PViiz9qaSYwx WGA0VTClCqTyOGBkBT4PNg KwBXgvNTl2QYgdLKl1QJo2 HP5ARiQxUMKfOap2UkX8Ss GaEDd3CAquHP6BPAY1EMRi IVTbCRyeTJZ9AAZaOYv5VB IgXFxzcyAzIFxcZmwgXFxu F95mrQHeTZmrYoJjCUhgoR riHSBqYTA8DW2JXDXtCbCq R1ZIO9qNNF8uQupqqaKvRK BzobOPBdouDUBwTR7JYPCq DFfvMCo4ojKpWALgGtUwYI NnW42us9WEu2KuVZ7DMRq0 xlXpnokazI0yMYVfhwUfx2 IzMFxlcGljWHNiMzAgDQpT zPUqhS5lwpAYLPrhXPSoC2 BuqtVvWWblXVCfsu4ugGea IGxhYmVsbGVkIHdpdGggdG bhQKWaaNzmwfApE1R5bjCc CU4oLIQPAGEgvE1nZLHvAZ TzTBJhCPNuiX0aDLH3k9Qd ykSyUMCRHJBwoYvuCZ23kC BjZWxpYWMgZGlzZWFzZSBh dkXknlHte64lpzNrc4BxYX 0ddSlhFJeCNGsvBkNyIJ0h EEQpghMvz5DmRR3kJWUrzM QhPZVmjcgoeFNbOTo6aKLp QWKlOfPgvEbnj9ImTSBeHN wwBC12evWxKB8nLOtfIX5x FJlqKJ9nAFGmFFJmGMAwUv CpoBTbGaUjiOPqPqUxH95q UrNHtOUov3ImT0stTT6cqK JnIoqbnCNaDXQfoIoej0Kf mMLjBXFox3SfeBHxFInoNT 3cVYQ9Vh0vzTOmBZLrkdI1 v2LpVJbwLKVwTadaIPOoCU zus5NgETPehZNNh6KmOV2Z XHBhciANClxzYTMwXGVwaW YNj3IqFRRXIvpghVomZmJp mDGmChF9BGQqfEFgYSV1KS 8mdIjqHOIgFLj3MWtbYCYw G4SsJ1EmRBnwMhJiXLfhTC KbWSXxRKaiDMPfA0GJBIVt TQA2UtIsRFXfOQi8DRetK9 OQXOQkQPGeJfC0TFK2CuF5 DUq4ZOLPTl6fBMboQxNdJD UjPsK3NJq2AuGoFXDtYhGf ZBOwVOPnEVzgkNGwNC4yiC joVJUwXRKfGKW7HUCpmCWQ q1FjKHVxJLfyVbOqUECDZQ GHRU4TAzAOFUSzBqTdqWEm DG1IMNAmwsGbWDeasOyifJ 4mxXUiQ5xySjRfGuxeqSxp TmVzdERvYzEgDQpcbHRycG FyXGxpbjBccmluMFxzYjMw NPHbhLEJi0AbFMDUIaQcWD NpbWVuIEMgaXMgcmVjZWl2 EMCzrR4kSf8fjURdiG0rfA UwYEiwHWLxl7z4lTG9uIVm qZT9jIEkpTymZjWzBW6fkR HgOTQPNV80wTAjqwJiDIJt sG3hVVNkVLMrVPP2ekfsRC ZQISB8mBXki1Z2CIqxEYI8 eS5bpYndJkAgR2X7LOFuXY Nqo20hwKT5ghSdEkOaUFUj qh1wuO3aKTcorjPdpNzhmw Lzi2K9EOHva0T1GKRgroKv nNYlbYBmTJSqIqF6PXRkJi S7ILAyRDXugUXtVVJtAP1u VGhlIHNwZWNpbWVuIGlzIG VoyRMiamPqMTKvnc24R4zo MDEgaL8cc4uqEnBqXJEdWJ OndSQedDP1HLSlaS5nlT23 ngLvufUYJY1euXSwHN5TXN NiMFxlcGljWHNiMCANClxw NBCuLNzjy3DuTArizIohJR LgYqSlCRgHmGglYCOJP7ta kKMkPJqcOEKYVKfUU7LOAF 4PMBUwsPJSNPT0SW4tIZiu OROmH0HoH4WucjA0x9tqdS ftz5RczKUfQJ6qnKTaFS6F XHBhcmQgDQp9 Disclaimer (test code = [id number]) m2dkhGRiTLRvy7ezTXKdrE FuZzEwMzNcZnRuYmpcdWMx IHyfazNlMEkxg7SnF4FtJa AwMFxhbnNpXGRlZmxhbmcx OLPvLOX1ckDkSGJjAGhxCX PlHQofBk5syATtbJrdBnFo QKUcg3uejvZFTXqaYbTbR4 41OVAfRZllg4rqs0DjNIFs zIZtw5S2BILGoitieDt3iW omK22sg8K8OrqsL2eoNTFw TFKvR7ItIU2gSXJdAys1XP H4SON8PNKcBNZjB2WfJY1w SZAlbHRzOFe8f4zmaJyyGG KaGVV3y7daUUooygQhUU0x zy7bcUt0l9todrGfAWZnMX EveIGIBIJwF1RmvTpyFf2r iAw6sCmsAbiyLER2Gwj0VL 7bib74ytt5nHunHTCbroxz OcV9FIbgXROzrqlkTYg9CS gbUXRzoWM9OCFidBJeQ2Dk TVQqSP4jlii3ADW7QYdsLN StEwH4ENDtoJNlOJIpgKbv VXyrd930TNU8HzJdTA1bS9 Zfj5G6oF4dcHJiVYJvnUDa XiStRLFsdp6owAPzIEejc8 KyDTG9etR8gAMotPZdATMv JZ04Jbrxu6LpClehi7EsK0 2pvTG4QYpwd3nbQA3vUlF7 uvTgWVdur3mbnB0uAoO0HK lpUG4dAW1dRRZajS0hlxay XHBnYnJkcmhlYWRccGdicm ZcQp8vwFmtOUB9HAocI5tp uQ3uHgB9YDcoF4kdsT5hWQ w7OEkytBK0KKWbkQ0aDX3m srbsz1ssVPttMKkzFFVsya H8zaL3CLJtfJUmW6SqbM2s VCFnPH3ecmovp2vbKPT9LY sdNCRkYSA4UdKaTNXpz6Eo ygr9MzHio2UxlMCzWJqhK2 9ok174FCOtbqWmV8lbfFBm tzzsuTSylqukLVdjshW7US WsxzIvv5BtTQXqXJP1AUas OGvdkZUpQECmkVjou6gfO7 RscGFyXHBsYWluXGYxXGZz MjBcbGFuZzEwMzNcaGljaF owVAcdXuDyFRDaVIkuC8le DoIpK3HuNRGfZjRgzLEyU2 ggVGhpcyByZXBvcnQgbWF5 KAxpQ6h6KAJbhpZvtAl0vd YhGiPzBGEwQHW0YPvwyWIv ZGEkz1TmnvgtyMVvZd7liC EiGYCuvO0bLCHtVWMjJKkq WV4vpRe6KSNGgXHbuWBxNd IYSENsGT09zhBqQIJZbdnc o6P5HQrhNZEah5TxnCEoO2 iaf9QyVFOnf52rIO7ic5C3 y1nvYSW6PM5dx2ObRZDwkF LuoLDrMDTut8Hbwxiyz3La ERJetxAlz4PeDDIzwhYpcY HcEYBayaAgbc9jptQsMCCf HGUaD3AwhuuuxZnrqeNvSL Nckq2mjgEaEUL6ZPAGWQKa LRZko4TsuP0xmCYRSZH6iW Hgwm7kecJXmEBeTHNhrn06 BWEbEO1dX1xyEEAyGAClbz NkwLZpc5LfUPLthXP7uZGd DE3JKyDJi20mVGSuXELMxc UrYSJshInahLQ9cuP6lW6s IChGREEpLlx+IFRoZSBGRE SiTX1hgoMrt4VkwwFntNkv WPTjwAUba1ZtpVYcc0IpwN naf0GaoHDexNPtEV0uPASv clxwYXIgVVRNQiBMYWJvcm K8d6ItBGNvWCXjLNF6tRfo cao7MNVjlU8xIXNaC8dcuy biCTptORAot8StxV6qaOVW kUVld6XrxSFcjTKXxWYmPN 0ttfEpSIpCJTdQVEC8kbEf MONbv0MkHSfvE3hyP64fpI xenKx0kCV7XTI8pP2iQji+ IFxwYXJccGFyIEFwcHJvcH OiGWWsjCvrqqLsT7XhbdJs aY1zaMNbcaSwTP8eVO4gK9 V5zXCnGBSyrzNwx2kyERqm dmUgYmVlbiByZXZpZXdlZC Htv1LwCKvsPQT2XRbcbuKn bmNsdWRpbmcgSCZFLCBTcG HfaJJwAJC3TWxrrgMnuuPq VD1mjT2wyPxxuA6bePDbmG Q4rvqaQKMzZIUpjItjZFFe WO6hcTdiuH8yVwCjRzLqUO fcMX3cTDWzM0treYViCVUy GJUpK6zrDhNlyJ6swDlsSX xjZjJcZnMyMFxwYXJccGFy XHBsYWluXGYxXGZzMjBcbG FuZzEwMzNcaGljaFxmMVxk UyPkZRAzTYgnA9ugGpNjA9 GcANFnTmGniJRqD8cgMTfs HJP1HVLyBW4fxQHlPG83xK Mik3gjQNxhxSgqko3fY63s zOLmQBufjPceSPJtu66be3 PsNKIckuIhkg1qYUQlkmS0 yJ1uOFCvaUhfVMRvmFIcCR Dlg8HwRUuteQNkabWqMEdp COOnBZQtvOBbzoA5zfQsyk SbnyTtNAFmyIrrBGGfs9Aa ZDIzFKrrf1Dgzx1meUYhPO DdgpYDqDlykPHehU6kB2Nr FZAaZIFfcs6xKCVprT2kNP rtx1PccqndHHRwUOWuXVAo ogBihg5kEAGtgKPJSS9WUQ lvzNQck1XaukBrZ0uHEYX7 NUQwNjYwMjgxKSBleGNlcH PwATRphy12YNDxhR2vpZge MLHlaS0frD3krCtpoX9sXm RfLgSxCUvcNF5xSLSyM2ys rXXuKRPwXLDrE7ctBsVwjY 9jaFxmMVxjZjJcZnMyMFxw YXJ9fQ== Embedded Images (test code = [id number]) [facility] [id number] 19:23:05* Test Item Value Reference Range Interpretation Comme nts Case Report (test code = [id number]) Surgical Pathology ?Case: [id number] ? Authorizing Provider: ?Dominic Keita MD ? [...] HPylori ? Final Diagnosis (test code = [id number]) [id number] FuZzEwMzNcZnRuYmpcdWMx OIcthlIzYDrvsMwhINE5HF IyAN1avEoljLs5eBdtHDVw stF4fJCzXRcid4wrVSE0y6 ggbkifWKRfYRyvMn8haGIi yOnfPfGjCHLgPJv0hI95ZL QerX0wzXAzXXo9EAMhcQVl qaRmYeFwBEOeoZFlvNZ4HU ZbCI5ganwlKRcoOFvhMOOh wpG9CKYrnBXvU8QaOFPvIU 8adsuaNLD9WPfkCBWwVXP1 JrPhBWHlo4Abupz9UoBnhY FyZFxwbGFpblxmczIwXHBh gvWHCgNGTF3XCGGZHCIIA3 fDGFRLTJ5WMGQHCxbnnJFp TYFmGDFfDXFTRU0PWWKjM7 dFDcYhKE4OTHRdKBXffZBg TVNgqaATDoOCET6PYU5CRD wgQklPUFNZOlxwYXIgICAg GWMpZQvQC3CTOUKlMUKGQ3 GDXWcTAZntUm0xDVWGCJ2O O7gEL0ZDGJTTBS1EFZrsDN NhMHSmIQCwTV8VDDuhLTKZ AT5LBYDSQQBUKAmOFYOGAO GWSMrHTGKAH2XGDUlHVHXx qbzsOKOqKr5fO5ZKKQGCFV wgQklPUFNZOlxwYXIgICAg RSJwBDGVB8RCReKZME2GT6 8ODJJHPFZJEB5IXJVNCAnH QW6VMLPZLOJHKEZLA4NxbO FyICAgICAgLSBOTyBFVklE US6SWDQOKtRTGHvTCYErQX lTRUFTRVxwYXIgICAgICAt YY5XIUlgFJWGPN5XDCKWMg dBTklTTVMgSURFTlRJRklF GLVVUQOGDT6ASv0YHIRXUo xwYXJccGFyfXtccnRmMVxz b8KpL3SaDeKwXOnsedPhTI YeHsvqttdaJTRfKUK2gpYo DKEvDUyoMDSvQRwaFa0roW SbqHwtBeNjIINeb7hgefUU NIolClTmY910FNTaXStci9 olu3JrAAFfqOByd6F2DUZH okuplLw7x9yjUmLeYeK7pV JgYZxtE1fckhXvvSMpQ3Zg jMJgtCc9kZguA10jz2A5Jb xiN7maBFCzKJWsS2HwHE4q AZCmUsn7EKU1FNJ5BZLmPL KiZ2VwOL0aCPMggOTxBGz9 y5srnGnyPOQbZIZ1c3wvKH gnqcU9OU5gmp7hkLg1k4zh czEgRGVmYXVsdCBQYXJhZ3 UwbSgwOf2ywAb9oHxoLgoi CBX2Wld0XL7fmp69hvq9oU pjRZRjtwyeGoY8LCvzHTWa sqxwMPt3PEtjIZSqbZY9RC DawJRaP6TeMDVeBW1giem0 ZUC5VVopKABpOkB6KXGhzJ JhMJDnuFovBMtwa869FJJ8 CpYiSJ2gW0Xvk3A5gZ1rpL PxHVKwzFOpFbKkTUWyds2e eJNoTObas2BiVXD9zwA6zW YukBKtVZRbOI79Djccl2Vc VxvxXXC6CJFkniPuq9Gxx2 ttAiGmtyBvU3ywS9YlQNKt YKNeAXXkXhCybwZvg8Qqt1 HenDYzbJb9x8riSVOqJBFx xWdhm4dpJJE6AHToA8X4hO Wsv8nlKHlgVUFzaTZ6wiS5 HQQfuSLeF7RvbO0pKHAuSN 3rulv9g5ehWFV3VDloPTTv CfL9urN8ORXyoGNsXCPxaV czNDadz897KJK2PmKwFGUt v1TsI6EeeJusZ00bfImkF3 3iQWIrdOlrcP5qrPrcrI8x ZjBcZnMyNFxxbFxwbGFpbl xmMVxmczIwXGxhbmcxMDMz HNxiE3ilRsSwFJFiwPsjJO fcf6UkWFZhTESdHufhpzLr XHBhciBJIGhhdmUgcGVyc2 9uYWxseSByZXZpZXdlZCBh nYzqh0JmF1qpGL7eT9AhwT OkmoFuujCxKXvtPHXxm3m4 fTJcwWerr0BljDNzGV05ls MtIPDzKFL6HXWho4slGE08 vufyYfMkfV10rhGbrpSlBH Yur0uoU1uvqJZsk2Jft5Sl wtQkVJrfv7RfCU4ruAFgfr ompRP5MLHjnYKafdBavoZ9 vCvzQWQfkF4zcB8mqVmwgA 3nZaBtFyJvGYonKR3eONGk V0rudUHeBHVdKXHmQ1xdIm VwgQ3juHasNkcajgP7KZYw cn19 Clinical Information (test code = [id number]) Shivani Schuler is a 47 year old female with IDA1. Gastric polyp x 6 r/o adenoma2.Duodenal Bx, r/o Celiac disease 3. Gastric Bx r/o HPylori Gross Description (test code = [id number]) c4qrhEEsIKStdSUIOYT3FZ XtHI6mmXrepNz8mZezSNGf prK6wJFbPBfgo0lnSHG5c4 trzuYSWrlbYNDyTM5mKQtz UVYxCV8iLtXcVNIdOuQnNK BhcGVydzEyMjQwXHBhcGVy bNV2STBhBM6ppwydJDdwEB weUYKyomY2DDJqdMHxT5Jn VQDbIU6elpitNTA2UNHEPs wgXy7vbEOcaGbaAqKmCpZw YXJzZXQwXGZuaWwgQXJpYW f4mW3VUladXPD9NZQIZong TarnzYqxg4PftJSvIJAbRS xcaWQgNTEwMDAgXFxkYiBP QsNkXmG6Fjh7XMZ0VaK6IK t9QFGKJYHvYxynCCU5DfB0 SUy9KBQiWW2cIAsjhKIdLN dtDojxNFojL038WTtjWRZd K6IrU2GkJPfsJdGpAMyxCQ WgQKAdBOqjABMvH2UFQJPf WRX7ArWkBUIyGZo7TRcnJ0 RKYJXaYIJvXqU3TIKiCkA3 TCo6BHYKHn5sVVxbZzWvIE g9FFR5CBo8BbPlOTAsEcLh JCElDARhYNherRDfUE5qlR mgVFQdUU5XWJEtPQjwGKAx GfHsD8YLD4cJYT4jNPlyuS JjaFxmczIyXHBhciANClxw HPTwMK1MTICfUZtnBSj8hz PbHCRaTjPtZEOkR13mi9TI j3EuWX7EDRt0kzGmbleznE 3mONWhmmKaPMuBbFMpsQ2s tqPRLCbeZRItG7MbbdAiLU udMFFajk3xdZulAPfdRhVl bGVkIHdpdGggdGhlIHBhdG pkffKiG6M6exHhHO3gUFYM QZBvyM3wBDHiMUFee6WozW IccAweT6TuiDLkSmYsn8a4 pIO5JXKuhlUkOZKwhZMfFS Qseo5vVXzzQaSqG9M0PFXp GLAxs47hvJA6baZuFkBmfR g2wEXqHBU7EE7ajDuucoAa a1q8mE5qUIByv9I9BQDnk3 S7KKByuwQxpKMruXMiMXSj BE5vttTvEP83FKCcRLbaFJ qhBZC3PRV1NBJsjIHoc5pm qvvjKe6xBCtmYE9eSBfxFT 70RPUgALvdTOGbL9QfZ3U4 UNorZETqBZCmqTFjcE1bzk UzusQrdVt3OJFgIIP0yIXq yIqmEZPwVifwsTO4OLRxId GmlmEhr0DhlYp6bKGqOFqx FVThqH4xvB2rLDWzMQYbgj ZWEjgxRBNcDHdui9RsXBkq cGljWHNhMzAgDQpcZXBpY0 8or5ZWu5Wgv3jyfObbo0Sk aEIxFY3szVBuZK5Wq0fzBM MyvRDbYQZ3GIgdv3vbZIor OTF7OMWdWkFlJBRqDO7RKk GjANjdXUn8ATamSKx4CCh9 PE4CRfGaZWWfRjl0QqJ9Od WfAMa1BSpcGL2DXJJ0ELMz FTKmRDpmUDR2TPMbDPu9RH IgXFxzcyAzIFxcZmwgXFxu O00zhUSnYDwiYiFoFQaqeZ prEPQcRAA9RN6RUEOdThSj F0XEP1gEJQ1cKvofpdVrMC HxxbTZQuuzPRJpNA1GLMBu BLhhMBk1nmBdRRIsJbXqUC NsI02ge6RUe9NcDT8OYHs1 juDcelqvqJ1wYCQwyhTtx9 IzMFxlcGljWHNiMzAgDQpT wNPqsE9nljTYKGlwHOXoU6 DjhkHoJBpkREXhmd6saWfq IGxhYmVsbGVkIHdpdGggdG zyJYGekMaenkDdP2L5smSa OV0xNUFTJYFlvQ1vVLObTL WtWQTxDKTkzS1iBPA5x9Ym wmIpRXYAWCQztPnzSM96dQ BjZWxpYWMgZGlzZWFzZSBh wvMsmhJog77fdnKfx6WsLO 0kxZxpHYjXTXpqRnFrCM9m LSGhguRqv3WjYV8qMCXjpG SiAWTfpyvtlQZaVWp2zFKb REZpObHbtPslj2YoOESaBS jhPU81qlCnBB3eBUaaYI4g TAfyFK5pWNXiUMWgZMWfOz PecXQgLrEwtHKzZgBdV32e VgLRwXXwf1TeN6yxRK5vvM IxDunztKNvZPJyoMirr2Uh iGMrTZCtc9JbmGKzAZirWU 2lQRB0Nz1mnEWiVHEjcoZ2 d2PeHVcgITTrTnkhSATzEY wda9RuHSZmkSZVh3XeXB4W XHBhciANClxzYTMwXGVwaW MWw8PmFNYFXguhsDkmQcEn vYQgFpV4EYQecLFdYAN7OS 7shEapSFZoUIz3HGyhSSJv A9FgQ2KhZVceDxXpZNytDE ZdBZKpJDwvNRMcV5WBWGOr ZOT1UlNuEGCaPOj8QJwbI1 XGDFDyNINwDrC3HYE2YtT1 REs4FOOEKf7yYVoeWbBuHJ CfSaS6GEk2HbUrNLNtBsVc ZUOxMFKsFPjlbQIiLM3mdA tgAZIqYSGzOSP0SAPshIYN f5AdNKOsNRjtDhDfQVHZYB SWAI7TNoZDTINfXnUhnAYr DI8DADWtxuVnVQmobNyhnY 0kzYVdQ1emQwCtZkddeVye TmVzdERvYzEgDQpcbHRycG FyXGxpbjBccmluMFxzYjMw DUVntHVYt8AyTCTNZlMoIM NpbWVuIEMgaXMgcmVjZWl2 GRIpjV6tYg3vjZHmpW0uaZ PoQKfkCSLqp3q6uDN8yKWz jCO4dMWksEbyZdOqVX4peF AyCCTBNH66rBJshkElPDBw rZ8lYUJuFZQxLZJ1crxbEQ FWWRM8wBGtp7T7OOjoRIB7 rE6ydNgmNnPoG7U4FGHvWN Jgx25dsFD0xaPlZdIvNPUn tg6uvB8kOOyooaMhaFgotj Hwz8H1AYMcj6Z2FXRjpfYt zVQvvLHqCCDkEgD6XRUoHv P7CWZwGTYzyAEmPBKbFN5t VGhlIHNwZWNpbWVuIGlzIG GdiBGwlyAkZJJedw29H2tg HUJxjN7bu6diCrRvHZDxUR GqbDYteQH5GBGfmM3xqC29 wgFvnyYDBF7lzHTgUK3QGQ NiMFxlcGljWHNiMCANClxw DXJmUBffu8RoKIfkzGkwZF ScOoUxDBcTdZfePJWEN0fx jKMvWUhjDHBQASqBK1UXFD 9VWCIyjBXXMPD8VP8vEDvu NTSyE6JzV3WfwfK8z1igsM jhx6FlxSKrQW4ktWGhXD3Q XHBhcmQgDQp9 Disclaimer (test code = [id number]) e8nhnPUnTVGvv0uoYPXhtQ FuZzEwMzNcZnRuYmpcdWMx IFcgsxQhZUolc2HaA5IwKk AwMFxhbnNpXGRlZmxhbmcx FIEbGER3tmDeEVIbWYfzXC FzNXemGu1ibBJlaCwpLxEe YOMpe8qbleWBQOkoIyGdQ0 13GVJyBPqch8tic6DrLVVe oZBne6I6RGRHoxhybMe3zU rdJ32ri3H2CtphV0kjKKWp OUChA4VhCO5rYEChHub7LN V6EPG6WDDaDGOoE1EhVQ6f BVYrnUQnHYs5c2njdLycKP EiXBP3f0axHUuelbSmGA5v zm8hfOk7z4xhvlDjYMTlPD VavFBYQFCkS6TxpNpsXj9p hUl1zWzuJqzkBVF0Avv6EA 4ily05umi6hKxuDBBwcexs RaX2HBjzOYNsnfrgDAb5DL hmINUgnFE9QYAflIQdE6Hp BPVtTB5hkgt5BSU2BXyuPA NeUwP8VBMjxPNsFCHlfZru HXjbs336ZFN2TgFsZK2aD1 Wuz4S7nZ3efOWsJZSxqFLg PsNoKKDvkq2nsTXoBNpzm7 TtASU7zhC9cRNoqKMgMGTq BM17Ybomv3RkPsepz4LbX4 4iwDC3HRsqc3rsID1kNjU9 hbGyEBgjp4gidR9uPhB0PX zxVU4tQL0gVXYrqU6riwmy XHBnYnJkcmhlYWRccGdicm HdEk0zlZiwGVF1PZhcX2js tH5zWiM0TWcgX6xzxH7gSP x1XFrsyIG8HXVcuZ7pOI3z tamby3zgZJerSTnyQLGecg K0efX3OAVtrUWcU3UflV4p HYLiAW4soekyz3juDOO0MT qhSYTxJWS5IxEhTTBdy5Zq fpm4PmClv5XvlUQpFFfrH6 8xb411SKEzdhOuN6zekEZs ptbtrWAhcevoQYsunlP8GH HnmsJih7LdIBYuBBF2TGpa FWsjjNZiGEBsnIssz8fiY7 RscGFyXHBsYWluXGYxXGZz MjBcbGFuZzEwMzNcaGljaF ywHQvjLyJcNUSmHAysB5sr KpLbW4LgJTLsEzEfeOYaF3 ggVGhpcyByZXBvcnQgbWF5 ZNigM3y1UOUrpbZsoLk6if NpSaBcIWQxLTJ6MUhfmSAe AGPsj3GehvblxYFqOg7gmU MnTGLtpY7wSLCeUGSyOXxf MV6wkTn8AQZRnTMszTOnXc AMENFgQL31ezOwULQFukzx h1T0JRshYKQhd9OmhINyI1 jtb1JgQTXjh85mOC9ad4M6 p3bcGZW4AW3da4XrNOJjgD LrsEMuZXRwj4Fesfbxd6Gp PNAuzfWzs8GxAWPubhNahP JmNWRxkyXong8emkPuIXCg ZXCoD4HvsavfvVuqvpEsCM Fcxu7mprFbFYD3LPVOASYj RNIxv0FshG9sjIBOHNW6pM Gcnk6ltkHObVPtARUnmr67 ZFFnNQ7wF8wxZRXfMHGxqf SgkMOyu1EdAXEsuHV1oKQj DB4FObLTm40hIHHsFWUXrc WxBEJdjWttnQO2niA1pM7j IChGREEpLlx+IFRoZSBGRE KtEN2sziIdy0AfflFdkPhf BNFekQZty2GotFFds3FdsX njp4HerFHfeVBuYH3cIOFp clxwYXIgVVRNQiBMYWJvcm T4e3TuKPAfNWRmUEW6dGdb qks4NDPrcT7cZVSpJ6cvnr izYUmmRDXnj3IwdA4thEBF qKYaz9MvhYSeiYWJvGLhNN 3wexSqAZjXKAkPKPE0ruFz VDHyf0YyOJnsH8paJ07cbG jxrIg7dIB2JEX3gO7lKbr+ IFxwYXJccGFyIEFwcHJvcH ZbILWocBcsnaZdD6VkybMo tT3jvFPjjvBfQV2eLI8tK6 K7iMSqMMSyipAxf0apORbm dmUgYmVlbiByZXZpZXdlZC Gks7ZqNMhwENQ0VInuvfZs bmNsdWRpbmcgSCZFLCBTcG WrmCEtCIO0XTgxhfPrrqWu ZQ1ohI4iqUpinI1vzPVqwP C1buofWEGcWUGbqEqvBQRi RP2icPnbyF7hMpFgAuWjEY vlGE3nOAOeG0ckkLHpBATl FEFaR4aoJrTgiX7cxFywIB xjZjJcZnMyMFxwYXJccGFy XHBsYWluXGYxXGZzMjBcbG FuZzEwMzNcaGljaFxmMVxk SpRmIWUwQKnfW8vjDiHpR1 BrMZFsHlLwiCZfZ6kxPOya BQY8IFVhOB9slVHjKL79oN Ewm1prEDzazLpzjw1sI51h tGByMVdpwSzhTPAnn57qe0 QvGWAexiLfue2yOAOaqiZ0 gE4dGIWmhLuwHRBtxMWsPZ Rjf4HjWAtyuQRtiySpTPrw WKNcAMEybNTgvcT6muRyxa ZssxMwSNMesMdvOIYoh6Sj MPQlITlio1Mupq4jtOPuIX TyubLTiCpxxJCqgV5fO6Uz AJDhDCNrgg1iTQDmqL5yXR oan0LiswfzILIoWMDcZXWa gmUhbl8cWCLjzESGKZ4NYT kkyBEcw4NjodHxC8wVMOT1 NUQwNjYwMjgxKSBleGNlcH QdKEEbva95IVQmaY4xuIwp IYFgqU7ueE5plWhzaE6sCz SgGjLdGVjoCE4bEJVkQ3tq wVZbSSLxICAxA0cjLnNnkM 9jaFxmMVxjZjJcZnMyMFxw YXJ9fQ== Embedded Images (test code = [id number]) [facility] [id number] 19:23:05* Test Item Value Reference Range Interpretation Comme nts Case Report (test code = [id number]) Surgical Pathology ?Case: [id number] ? Authorizing Provider: ?Dominic Keita MD ? [...] HPylori ? Final Diagnosis (test code = [id number]) g2hwpNOnEXCnc6udCACwfT FuZzEwMzNcZnRuYmpcdWMx SKupjxUwAGiycFxcEUB3JZ ByUW2laRunoMc9hNhgVDMw kkX2sOXlQRmen4ybDDS1f5 cpuwrsEOWeQHegHf7qwODd pGujLvWaJHHkGXj1oV49TK EvfB3snBBeZNg2ZAJsxIFd xdClDeRgYMVgcEJcxTD2AW VvPD5wrkvkUOneWQyoAAWv toV9JQGuxPJkW8HnTOUnYD 0ubnbyKJJ6BVjrCKFiYRV1 AkYeFYMwt0Gawvn6PcKriA FyZFxwbGFpblxmczIwXHBh pdZTIuDUJE5IZZDLMIGVD0 jEJPHVBQ8MBMOHRthqmHKf BLXjROPtZGSNYA1VQMOoC0 fBGiJwDB7RGDWjGJNynMHq XYQbohUGPoJPQR6LNA4VJS wgQklPUFNZOlxwYXIgICAg VRPwPSfOE2SHLAQaDLUWF3 MBFNjJNMraMw7tQQZIFP7R U5cFF7EWZSIOKV4KBIiuMH HwHHYwEWIvVA3AFCjwJKNG AH3IRDKIIKQUYDaAANZADP WRJOhWWHTXG2SAAXqRPKUc ydvoDVDpOe3fW6NCGJVMLD wgQklPUFNZOlxwYXIgICAg WBEaANKMW2ARKoUKWM6HB6 6SLEBYRSJDDV9XKWDIUOoC TK4GYFWXRWDQYTCLG7VnyJ FyICAgICAgLSBOTyBFVklE YG4JBDUZSrVOJOcBIENgKL lTRUFTRVxwYXIgICAgICAt UB8JEDaqBQQDOA4JXRWFGo dBTklTTVMgSURFTlRJRklF EYCARTZVBI2ZEq3MDNSRSe xwYXJccGFyfXtccnRmMVxz v7BtD0TqCtRtNVongzYiES MpLvbuonzhWTIcKLK5zqPy WKMyINutHNKaINzdSm8buA JxbRnzCsWsZFSkj7irvtFF JIgkTiCnE425ZWPrMGoma5 xqt8TaANGqtWSvk5Y1KDBW gavasDh1c1umLfGuXhA8hW WhDItzD3yxrkNvzTUzA6Jw hDDvoXn6fDtaD89ks4C8Ow pdL3ivTJWcMTBgW0EeYE3g UMClEac4FVY9UXZ6EHQsEK HuH8JbBS6oZHGoqUDdLTk8 c5urhEliFUFpYFG0r1bpAR zgpdR0NE6dxt4ziYm1j5eb czEgRGVmYXVsdCBQYXJhZ3 DtzUfbCa6erWg4eYusXlvs ERK8Aqq2IW0vbw78mdo4tM gmWNVduwsqIrI1FWphKVOc ifdeNQs8OQoiDFQihHK1ZQ HetOXgB5WoXGSjFE5pzow1 MTA0XYgfCGZyFcY7QNOrzH QfFVIzrTixZMoyk398DXR3 IrRiFH7rN6Kom6S7gP1zrB VySHZhgJBhRdYrIKUqzp4i bWQvRBuds4GiGDP5qcG6pI HzeNVnQNLjXH46Gbwzr9Cu BczwVJR6OBItcwXtq1Ukv8 mfGmAvywSeV0jxH7WiXFFy PTPaXGBnJyRfyjXuw4Rzp3 YkzDToiJb7u0qyWBDnMTTr cOrkp9qyROD0PLBqP3S5hJ Mew5pyDCgjBMBelNX2qlB0 GXYzrPYkU9AhxJ8fSNKqCK 0bvwv7z7sjPYJ1OPpgRQXg MhG1mdU0XHAftZVnVERqxV txAXzbp944UFK0McPyEFQi p9MpW1ZsuPsoJ27wbRzqN4 2xYMTmsHmiwL4xhQrubU7h ZjBcZnMyNFxxbFxwbGFpbl xmMVxmczIwXGxhbmcxMDMz CPwmU5aaJbTjQJNrtLhnXA aoh2ZjUSTlDUFoXrvejlRi XHBhciBJIGhhdmUgcGVyc2 9uYWxseSByZXZpZXdlZCBh zOelw4BsX3qhJU5hK6IgqC KcwaGlurKgKNkeTWAxs4h1 rDEhrUjhi0GgoHZmPK11au DtRYKlTKP8YWVre8whQJ59 fpoqQdGicU35ioNqmxMySO Ekx7ttE9vojECon3Ddx7Oh tuKeLHwdy2LzBI3eyRUupk igdXS5EBTygKIztjJbehR5 cEjsTDAflC5vxC3lmKkvhE 3rPpYxIeCkHJmeRV8uRLGh N9jauZKrVZCtVOYhJ4mpPo AywZ7fgZsmVvjsxzP6ISXy cn19 Clinical Information (test code = [id number]) Shivani Schuler is a 47 year old female with IDA1. Gastric polyp x 6 r/o adenoma2.Duodenal Bx, r/o Celiac disease 3. Gastric Bx r/o HPylori Gross Description (test code = [id number]) u1qbcQEbXLAuyWGSIST6QF CvHH9cxTvjuWv1fNoxMAJl dqZ5dZFdBYodo8dfIOJ0k0 gvwbDNZtwiSXLzYT2bKCho AQQiDG7zIwJjZSQeDbZnUZ BhcGVydzEyMjQwXHBhcGVy qNA1EWJnME0gaxpjUOjoOH bnJSTqypB3HHBhtQIeC4Sc FWUwOL3esdllFJK3NAGKHv jwLr1taJZbsDryIkAhNhTo YXJzZXQwXGZuaWwgQXJpYW w8zZ5SMzeoUMF9CYGTPhwf GichuHxer9EriVQfLJXfOL xcaWQgNTEwMDAgXFxkYiBP NmYzFxM1Faj9BRK4KbV1VB q8RGJLVFMsKfesRPT1HiA9 OWy9OUDqBC0wUBenaBPxRC xcBdfwZOkwE353HXjmDNIe O8IvF7WjRZpeQxBuVOcuGK WxYMQqWOmpMPAxY6PLAFNa MUC2WfKtPBQnWOr0TMdpY8 FVIMWvMFRvQkA3UCGdRqD3 UAr6AXODKn8zUFwjTrFhTQ y5RXO8AUw1CbObUMCyWaUz BNCxETGeKFnwgGPgZB1kfN ywXQApXV8SUKOnWVfeKUIo CbEmR8PZH2tFFS0rKEahbF JjaFxmczIyXHBhciANClxw OFCxIB6CUWUsRJigGJa7eg VcDJLeWjCzWFJmE44oy0UK z6ZoJE2LYEz7vuBfctgwlO 2yNGGhjuDuGAmHrPWjzJ8s syTCKFjjVKSsA2ZykxWmAZ owKPLzca3ncHubOQpsFqEa bGVkIHdpdGggdGhlIHBhdG mfqtBoH4G4jrWjSQ6hRDQT XLYtgH4nGDJlKVCbx0EhaY PnyJxnX4QazRWcEmSov2k4 qWX6VHKwmpUeUWGgmPZnCN Jjfd9gBPxvXdAtU4G7JOHu FEJrs32jeGI3ufGyRzRlzG e9kGUyAIF8CZ6xxBqwiaWb d7m1qS4iVRFok9E1XKLsw3 F3VSHmlpGxqXKprWClCBIk NL4kirKkVB58OCOlVVdcVL ozWCJ7UMQ1DKSjdMTat6gd fyitVw1oIZdxVJ8sAWmzSP 02VWUfQRnzZISvR9YeK0I9 ZBomYXNjMNHhjVBtcA5xdh PlfvPvwRo1AAOfZMZ2xGRt wGqhAKTjVtakjPO4FTLuCu WahrLxz0SxrFr5jJVbLDmn FNDjiF6lmQ8eOEUnMFSocg BJTkqwYJUyVBpwa3NgJHbf cGljWHNhMzAgDQpcZXBpY0 5ma9VIr1Kqa0pppZuqq9Ty hHIfXN2peOWnXK1St3ozGY XtmJCmFZI1KGeis0ivPPbu PLH1QQJbWmJcOMJgGP1GBw DyLVblJEw6FOmdYTs3BZm9 FX0KXkCgMDMgEsm6WqE1Tp EsHSq2KLcsHV9QZAU5IJVn CTTeFOsaWGI4TWJfBIj8BZ IgXFxzcyAzIFxcZmwgXFxu J86xyKCtCXptYaHzHDclpS nkHPJfEHJ5HB5EHCMdYpLy O2XCL7oMNL5vHcsdzkUlFG AkiuFFOaaeLTLiJE1QGWSb POkbZIy0aaEeJITuDhDdLC LdM51to4QCs0NxIQ8NCFr3 juFffxvykI9wCJEondYsw1 IzMFxlcGljWHNiMzAgDQpT jQQvyO7ximKPQUimJIQeJ3 LhmaDiDXqcAMJqgm9glCjq IGxhYmVsbGVkIHdpdGggdG wzLQAoqAvhczIxJ1G1fbTo KI8iLJJBMSPxfV6nAYCeIB HiRVOlLHVjsL0qDFI6m6Tg btTwFAIYCOHjxWuvSQ24kK BjZWxpYWMgZGlzZWFzZSBh hkQgudHgc60aicBpx3YhHT 2moXnfOHyQMNvvKpZzTM3f SHRgkcOwc4EnEN0hUJMzxB LaQEIvleenaCLwXYb1cRAn FNKeRoTjxGyfo3JpAWLhTI xhYY87ibIfRP6fERfoUW0l CDjwEN3lRBEbMGZyGAUvUw IslCLiUwNbuRGiCvRiV80m ToQDrGLpl0WqI9oxTV4duC ApRsrapNCdEYXjbDntv2Cp kKRsHLVmg6FirLUuWTobDF 5gHJM9Yy4rvQYjVBDocrX1 s9FuNLbuSJPjJoukVFAcGG sxe6QaWIFdcOOVj3GfKP0M XHBhciANClxzYTMwXGVwaW TYo2ShDCHPGkwnaAxvFbVb qSXcTiE5IIJrxTByCXY2NL 1plQikINPfTUf5OFaoUYUd A6YyR0MhBWpeDdFzWUooSP PyWWYrLIqeUVKjY5MHSGCa UAO2AbNhWBUvUGc3BLcgF8 WDUWOmEACzUpV8SFY8UbG7 PRo9BCAHZo8uTOvlTvSjZB DsOsX1NJb0OtEmCKUjWuXt KTAlYJPbLKkesSPjUI6zyP bkBOVhTTPnMKM2LFLwpMCC d2XaENQoJHysLfBhRZSSBZ NJVQ6ZNqCWMWNqIyEanJOn OV1YTDErorLdZDcnqLvijZ 6pbZMjQ7bzKpQwOwlzwLkn TmVzdERvYzEgDQpcbHRycG FyXGxpbjBccmluMFxzYjMw QAOfxITEl5TnQWXNOeXuWM NpbWVuIEMgaXMgcmVjZWl2 NMFjsA3hRh0tcRQqqD3niP MtACwkPRHnh0s4fGG7vKYj tKA2lJXynDivFjNfNK6ihN ZzSUEGZC49gEXdghBxDKPp fW6hRHNkZUZiFCO9wgpdFJ NZZXT7fNKjv6J2XZhdODK8 gH8qcCgaRqRiG0T5WOXlUF Pbm50zhHX9efGcDwXtUYFm qs5crT8hHGklejZzyJpoul Sac7K9RPIfs9N2HXYsjvWu wXRlpVJbNFQlXeS6KMEpTd U1PMZeHZDsbJWpGXWfUY1a VGhlIHNwZWNpbWVuIGlzIG EepTStreDtMUMqdp18V1yf NDVicM4tb8izAsWfSMXbLO LfqNBpzHC8RKMxxJ8poI64 zdUabdBHZM9uoSNsJD0VCM NiMFxlcGljWHNiMCANClxw PAVwUSyal1RhQSztyNdnAF XoUkXzVZuLwZlbZEIDR3rk bJOrHCafLFSHIJtOF7ORBW 1OHOKggXUAPIX2KR2zEVln HXDzG2UlB5UlafB0r9gioZ fci1RqkHLiXX8ejTTiYE4H XHBhcmQgDQp9 Disclaimer (test code = [id number]) d0cbpTGdRHJmp4wtHRVmfB FuZzEwMzNcZnRuYmpcdWMx UYyrscJrLDtas7HbY8QiLa AwMFxhbnNpXGRlZmxhbmcx RJRoUST7juJsZISoWSpsDZ BoWLxsYn2nxPNrsQjbClNa MGJbp4itwnRQIOofQqKbF5 30WISlSGnqh3jsw4XkGEGh iAHop2Y5DRYPnmrjqSz9pQ hkU47ze6I4IczjD5hyITDw FFPiN5EnUN4sFAYsQql9YO B5OIY0ZAUdBTJiP2WsTA1x SHGqcGNmNMf7n2wvpZuvGV UeFKF3c3zbAPghajCaCN2q hn2tfPv7x6nuqfGaERZkTL VatSDZLZZgI8ZjeOgjLu0c oBz3hPlrEwneAWL6Whd2HI 7epn85luv2xTkaSDKxicaq FcH0UDxtVBNfczmmRDy5SE hvYDMpmRO1QXQpmLNyS8Xu KZZoCU9ohkj2JQH2QYstGJ RwAhN3FXFwlKVzQHSvyWla XVtsc482SAG3YyQhEG0rX6 Ntf3X1vK6geXBsXXYdlSRj QgRjPGLvsl4odZAkEYglo5 VnDYU8xlW6pBMorAJzKSZp RG24Jyqjh0WvPdkrh5ZcD5 4yeXH1IVewm4jyRA1sUaP9 jrTnYFxnd0vojS7rGyI4UA rvLP0eWG3cCGFjuK6cexum XHBnYnJkcmhlYWRccGdicm PwIp7xtRvgKDW1QKqoV8hd rF8bFsL1OAyqZ8wevY3nXC o3CJaooYE3DZPpxH1wQR4z fynbx8lnJCpkSCizSLUtve B3ktX9NWVgqJGrE0DdaP6k JULsOU0kitoza2jdQGF2KO fdUNEyJBA3DhAbGPNft4Pv rcg0DcQjt4RnbTQzWUgrI4 8kl703XPWmduUyT4ivfGIb orwpaJHkqzorPQinxsA0AI FhmjClo1ClAWXbGIA6JEym XVjbeIUsKWZpzEbfv6jjC3 RscGFyXHBsYWluXGYxXGZz MjBcbGFuZzEwMzNcaGljaF vxJNxdCxBxFRCfSLsnO8uv VgZaX6DqIEDjXmMohCPxU9 ggVGhpcyByZXBvcnQgbWF5 TAlkX7s9MEPmikGnnOt9nb FnOiQyEEMeYRT6RGcouOSz JIDiy6EerjdtsDPhCh5ltG VtAJYusZ7aGEWrNXErNThb LH3ynXi5DDZEnNEkbKAuGq LYTPHhPW24lxEbPGKQqtue x6J3JOqwXTTpr2WfaHMnO9 ivd0VwRFSaj12eUV3rx5N5 l6owOFY9XD9ff3TfGKMfdS GcrKLtGTAum7Bftzggq7Ia FDWwtxUjx4GoSHPlaeSxxS WiHOMytxCtcf2lblCaSSZj JJUiO0PhbjodiBlqssLvDU Eovg3fuaOiICL9RIEQRLCv UNUxy8BfxV7inPSLIPD0oT Wnyg2gfoBSkFNaMEAhgd94 UBAyEQ9bB6lrVKTzNIDfpz BnhZUmt9KsJNAfyMX8sYWy FH4IZmZJd58gUJOfKWPOww HwDOIagCvnxVC0jiH2lZ3x IChGREEpLlx+IFRoZSBGRE OuBN1cdaOqe9CnbnKohDjm PCMukPVlg4FirCYec2IvpU jqq3IbtEOdiQNdTJ1hQXAo clxwYXIgVVRNQiBMYWJvcm Q1m6RjOFUsZVQaGZC8nIvp kke0SBNnyZ4uKQNjX6pxho rmUGdkAEZbf1PzrP1vlVSE rITzo4HwiXPmdXUDoANcTL 7urgLlFQjCZBpWVES4bzAp QYRig7OjNNgpG3quE76eaS wntIt6wNP4BXI0hQ4dXlo+ IFxwYXJccGFyIEFwcHJvcH UrLBUdtUhsmiTqF9CyvjAv zM4ntMLgjaRdMG6eOU7vC8 W9iLLoFVKdpvAnc5uaPXhm dmUgYmVlbiByZXZpZXdlZC Ntr7JzLCulPEK9RIzqcjMh bmNsdWRpbmcgSCZFLCBTcG PmxEZaBGD7ALgtfqEcpmLn CM4seD2rxDfrgA2ppGHkgV B8vxmwYTOnDLDhuZjfFHCg GH8iiHeznQ0vReFdZsYwWU hcNB3lPFEfR6mxhLFdXBJs EJQiT6cvQgNqeJ1weLvcBT xjZjJcZnMyMFxwYXJccGFy XHBsYWluXGYxXGZzMjBcbG FuZzEwMzNcaGljaFxmMVxk SxCnJYJeVFohQ0nvEsVuT3 RyZDQwOcBkkXUmI9cxKIab CHP3DXXmIT6spPZpZW66gY Ivh5dfNZzvrFjebb5wM24i rXOhFAnjbVncNBVtt50oo6 GuRHHxjsEzew4lMNJxprF8 yV6bPOYnnVvvKAHxoJKnLE Ecp2DiEWwwzPWrziZtAJnx FMNcMOUuiSSmgdX3scFcyf VqotWxSSVdoQtiNKAae0Hx RYNdXEjch1Lmpu4hiBVwUT HwooRNgPhxyXVuzN3oA4Og ZUDhKFJypd5sLYJcoR7zFK tpk6ZxsjeaFJYrIWKkQCYm aoSpen4eWGSydZYIGW0ALQ ixkSEpq4ZjvnBxH1fYJLQ1 NUQwNjYwMjgxKSBleGNlcH VkDRQeqr04QKObgA5ltVuq LHJgqT1cmM7wcJwovT0dSk UbAtFbBPagSK3eDBMiJ3dn sKEyQFEcOASlQ3gvRmBanZ 9jaFxmMVxjZjJcZnMyMFxw YXJ9fQ== Embedded Images (test code = [id number]) [facility] [id number] 19:23:05* Test Item Value Reference Range Interpretation Comme nts Case Report (test code = [id number]) Surgical Pathology ?Case: [id number] ? Authorizing Provider: ?Dominic Keita MD ? [...] HPylori ? Final Diagnosis (test code = [id number]) u2jaqVGdYVFos8lvZHKqvQ FuZzEwMzNcZnRuYmpcdWMx SAmzotLuQQkrqGbkUFF2UO EaSO7uyMcpqDc4uXizRIRp asD7nYRoEKcdb2mmLYE9g5 owfwdbKJScDBxbTz7ulSWo hAwaGpLrRKEjINx9zJ32LM QzuS4dlIGtUUb1QYQnwCJa rhFoDrUtENAexZKliUX1BQ AhDF8uvzcjHHdmDMyrPEYa zgE5ORMhkJPxZ5MbKPIkFI 6flmreXCR0HBmmFGDgBBC8 TkPdCHCzw1Npvnx8BpVfuA FyZFxwbGFpblxmczIwXHBh myXTTiGZBX8CLJLOLEQCU6 zOMLFFHB4BLAUOTlrteBRt GESsNOOqDTWVIU9XRMMxE6 xYQuUdAN6PSSCuAZQbyMWv GULlrcWRRvMLEX6HCI3ETH wgQklPUFNZOlxwYXIgICAg RKGmYIbMS4MLVBQsKRBXJ8 PVQYoKEQeeCn9eBGFHIZ8J V3lXI5IETGJRRM0SLOztNO OxQANgBIJwCB4MZPyeWMEN HF6UOKKAESWKDQoRGONGXN WXXPbDCMPYF9RYCJrZPPAa uatiUSTzFh5gZ5HJHWPPUR wgQklPUFNZOlxwYXIgICAg TTPyBVPNH9VCGfHUSG4SX4 2OEPZRZSWSSX7LBRNWZQrC QM1YPWRYQYAPODJHI3AbeX FyICAgICAgLSBOTyBFVklE FA9XRKIDNhRJQMjFKEGdZG lTRUFTRVxwYXIgICAgICAt DC5KSBoaKYPNPK8POAYSBw dBTklTTVMgSURFTlRJRklF XWYUIDMGJR5SDq0ERYEZYz xwYXJccGFyfXtccnRmMVxz q0UcA1YsNdXnMHgarnHaCW HrUrcdwjosPCJtEAZ8siAp WBNoLDelKPJoVKuhPk1eqD KdiFzdLlVzBSEps6hfxeMG JMtdNtTtG568IIYzICexg9 tbs1JlCGHyzUJob2H8SFOV cfmdzWr0o3xkKjCkWkI8nG OyPCneF9dafaMasHAeY0Kl qWDgjIf2iJbeW88ai8P4Wl opO1cvDTHoKYDaZ7UaDJ9c ARZuGqq3UHJ7PBU9SUJkXQ HzK0FfHW8fZSNhgWGbQQi6 l2nqrWpiIGDhLIQ4d6xrNT ykkdL5NQ6scy0fkGa1l6pw czEgRGVmYXVsdCBQYXJhZ3 JjqUeyNd4abVe5kJbcOyms PUW8Gmm7XN8tii86dtu2gO maTRTqnpzqMpV5BSxgPXVq nqhpZWq4RNqlCHFekDN8PH EmnQClG0YpELIlBZ6khrr8 PEQ9NPjqNNDrBnI2FKAwhS NnFCEnuFjhIXrwy081HGG6 FfNnBY4xY8Kww4V0jI1iuX GoJBSdmLRaJzWhPAHemn5q vVQcFTqvk9DiUZR5pnL8nX OnjOPzGMYcFM95Dqhbz2Dk PeawQNI8RUDbxoDfa5Fwj6 isXoCsmpUoA7vkK8LwIRHh TXFpQTXqSdJraeJvn9Ccu7 LbeGGsiGm1h8riPUFsVUDm eOutc8pzMKO7MBBfC8U4wU Ywu9szBVifYXYzgQY4zoN4 CGHrcZUbD2HzsV3rBQDrKF 1ultx9g6cdNAJ0GXerBPJk QgH3wtD4DWNwbSNyBHVjsN dkYPbwd960MOU5UoNpGKCa q6IhN2DycCatJ86pjOyaB0 5uYHXqqJloyL4ucYjejP8h ZjBcZnMyNFxxbFxwbGFpbl xmMVxmczIwXGxhbmcxMDMz KFryQ8vfIcAjQYTgmRajQU aui6NvCRZaRAZvLeghmrNh XHBhciBJIGhhdmUgcGVyc2 9uYWxseSByZXZpZXdlZCBh zAopg2DpV2prTF6qL8MoqD UqvzEvmdKnCWfpKZXwe6t8 vKBosTgvh9BszCMrJM80kc IjJCLqEXW2IBXuo7lxLX36 cqydXwFdzK65kgRiphExOX Jgz8zmI3jevEUse6Ptm7Qt xeLoVCrcn9XoAO8bnVFcxb iblCV1TOLypVUktkWycoU5 fMljNIGltD5iwF2rwJgjuV 3oCkJlJuVoJNhwRH7oYEOn Q7xpoDZdHDXyOSWpV2ncYd FvvL4zoTedZjxkzgE7NUMu cn19 Clinical Information (test code = [id number]) Shivani Schuler is a 47 year old female with IDA1. Gastric polyp x 6 r/o adenoma2.Duodenal Bx, r/o Celiac disease 3. Gastric Bx r/o HPylori Gross Description (test code = [id number]) d7dfvRMjRQBjdSCKRXU2ZQ DsWM2iqZgkbFf3vMzqGMFf xbZ6wZHmTDrpu1huEMY3e9 fhlaTKVoyhABMfSR1qPSvk RDDaDH7lZiTuVXVuKtXvII BhcGVydzEyMjQwXHBhcGVy mCC1GHLyDK0yrfxeGRjrCK laBKIrajO8UHPaxCAvP8Pb EQLeFC0moqcwFOG8JBKTXp yyDx5fdPQicKxvPwFhKeSj YXJzZXQwXGZuaWwgQXJpYW u3dE2EQecdCVY4QVHCJbho PmmwdTczh9RnrVFnJOZeYS xcaWQgNTEwMDAgXFxkYiBP ByKbLoZ1Xgx6ZQJ0MzI7AM q2ASAKJQCbIvgcULT3TeS8 XFm0JZUpRQ8kUShxoNWuZH wqLprfZKduK190PZhtVRRt W5ImP8JsOYhpIlXaPDyxOI OnJMAtRWkoPSZkV4IPXGQo PIC6MkXcHXLfMQh4MPqzF9 JMTHKxFLWsFjL6UCNiZeN5 RFs2RAMYNf9dHZoyNjYzNQ a6BWV0EVf4KrOqFXKzAsNj LDEvJVImFMdsjXGrBD6xiQ ccYERrKB1MZWHjBZljYXHp OrQeN9TQM6jWBN4sFIagfO JjaFxmczIyXHBhciANClxw CFLoVE4VLGJcGYcuYBk2vz RiOWDaTmAtFJLhZ56ik9SS v1HcJE8NDPi5oyZezgzswH 4nVQZbldQpYFlEzZNyeR2u jiFTWEqvFLMpM7CrfiElZU poHVSzzj3ewNrfDKhbUvRw bGVkIHdpdGggdGhlIHBhdG ofutAyQ0X5dfSsMH3oVVAK VQNuyB5zBJDcGLUab3ZqiK KhdOcpD8WfjQXlOvIky6s9 nGB3IQTauhRaNZQdkHVqAK Xacb1xELzkVkQwV1K1HFXj EBUwk20anEM9prXaYnWxiD q1sBZoGNN3RZ2wdSxtpzNo c0i1jV2hKHDkv1K9XAAwf1 H8NVUonsVfaDLzrXRpOWMo FL2siiHxFQ01UEJnCHvtRW caCKX5NFP7BVVquTSpp7zy kwleTl7mFCclTX9bYLcjGV 15VNMvYFhgUJOwZ9ZiN8Q2 KQguFUJhXQOooNGnbY3lgs UnggXbxCs2NJJrJFR3xRAu rJddFVElEvwoaHE8ZHNyOy RmdxVlj8PcvTt8fUFqFGdn YRItyB4qgT6yDVQfHQFpdy GKIlrkBAEiHAbcg0FpRRiz cGljWHNhMzAgDQpcZXBpY0 4za2LWv4Fux8ukdTxom0Js nIBvBY1xlOIdTX6Di8lkDU ItyJWqBDK9UKjdg5fyNHqy UQS8WUGhDeNdNPMtCE7NFp QlQKrrYAb0TOmnBCp9LBv4 TO4XEbYoBNMjOnz6FvO8Rd YsICi7HHmhRI6OQNT9XTBd FNSxLJphDQG4MYWeETt3YE IgXFxzcyAzIFxcZmwgXFxu B33djHVoOEubCoWoWIutlQ eaMMXsPWP0XM0YCMVgLyVe R3SLA9rJOZ6uQyvjbvIoGF WzvtYRIhwxJPJhPP3ARJUc ZUvrZPq5hmWvYPLuLgWiTJ YrQ67fn3QCg0PsJF6JOXn9 otImaavbnW8xCHMdxzQxw2 IzMFxlcGljWHNiMzAgDQpT iNFfkO1ghxZNYZyzTOWaS3 VeepSzNJagHGMwvm9wxIaa IGxhYmVsbGVkIHdpdGggdG bnMPAhfVyofiZlO3I7qxVf GL0xPTVVIKHnnE8zCFNmCR KqTCLtIPZxzW1nZZY1l0Zu auRsHWFYDQXamWtfZQ52zR BjZWxpYWMgZGlzZWFzZSBh tgRyaaQwc48osqGde9XfZD 1vcOgkHAsUHAarGvKwBH6h RZIgwqQbz2SyBV5jHHZzeZ GwWSGerqjhcWAoIZm7fKAu HYBbWsOxeGpll2YeQXZfTM lrHL43jcWtMV8wHAnfWO0n NBpwUZ9bIJTuFNVfLFTpNo WkjLOeHrIqkTTePjBmH51o GhXNlPVcc2PzP3wmPX7fgW UoLgvpbSLbXKNprRviu7Qf dHMpUQZas0BiqZWcKPbnVH 5rJWZ3Hd6unRCtWHXiftT5 w6ImNBlvGHMmRupfYUFqMB wfo1NzPIJntDFTk5IyPW6I XHBhciANClxzYTMwXGVwaW KYg2AhSREZIoabhOyeKoEd hFGbXxN8RNCviELqSXX4IM 0ucUrzQPGpJVx4DOxaLIQa K5SwM8GfOBlaAwZrSBslGV DnWYWbJCtkJDYhQ9IABPPn LQM3ZxVlCRFuQRl9PTesK3 FCRBYuHMBeXxL5AJD5NoU6 DVs3OLMJIl9wGUhkKmEkPW PvKwD9CId5UdUyMTQfOdAs FXFqLJKgUFghlTUoTU8oaD flDGVoEGDkUXB3XEFeqUBS h2QxWKJsYFncGxUaIEUKQC WXRU7HGuWUTUGdSdGxqAPq CG5NXTRjttFnBRqxyLihxW 0xcLLuJ5taEdZaHdfnuWlu TmVzdERvYzEgDQpcbHRycG FyXGxpbjBccmluMFxzYjMw JPUawIWYb2SeGUXVMyVbHD NpbWVuIEMgaXMgcmVjZWl2 CIOzyB7xRb3wdBVpvL1ywN GtNLauOORfq9a6rSG2jKIf rQY9gZWxeOvfYhMmWJ2taV IuHQIGLY47oZTmmoHcAUEs yA3nTHDlYQSnEOX7fkqqCX QVAIE7cMOnn8I5MIanITO2 kB5ouKwnKwIpZ3L7AJWpME Vru71iiCD5roXfNkViRCQs sq1ldQ1qKSgzbaRoqRljun Gmq5J3TRYah2D4JANopuEq dVAnbMNuPKMlUbE0IAVlVr Y6TSQlHGRoxDRqESLbVB8e VGhlIHNwZWNpbWVuIGlzIG YurOCtlmFbCTIzfu51T2an HOCcgX7pw0ptQgYiDQKqSK OxiMXraUV8RXNvrP9meU48 igZwfmWGOJ9kqSDrXF0MQO NiMFxlcGljWHNiMCANClxw CNFnCBbmv7JxKSdifGqhCJ UvJlYfXFeYzCcbTTRWD7ri qHShTGouRIRRMUxFU4ETJJ 5AAUCptMNKPYY1QI0uYEaw HWBsB1EeT5IqpxE2w0nqrS uxx0LyvEHcGR1vuATkMT5V XHBhcmQgDQp9 Disclaimer (test code = 5352478140) a1hbxMVvFVOce6qbOMZauE FuZzEwMzNcZnRuYmpcdWMx SEfljrVsPKbaj2TnU4FiWa AwMFxhbnNpXGRlZmxhbmcx HFLsIQF5gdXuCKAmGQseRE TyWRwdZp2phSAgcQljIyVs YUUwp4pmxkWHRNjoBgPfO8 04XQKhVFrpa8frg0LzNYGy lYFep4T5LXUEmcjdcGk7bZ kiE38tv4Z0XpvoC2zfMOIg NNQsM2NgAC1hNXZpWps6OM H6PVP8DDGbHPCzM8DuNK3t ZWXgjVTfMSn3q0oabUvqXH TtOAR1p5zdUKixwzQbAR2o sp3ncVp2z1vkdkOvUIBpXN ZyjKQWVULoP4QacRblIw9u nHj8oTnrUaxhBUU0Ddu9LS 4mri85jur0aNrzOUEnxkcb WwX9LYptZFBjrgqrGFc8XS agQOTzyZT6FZRgcTDgZ4Rv TEEpUI8jxuy5BUP9WRgrHT OzVqX7SNIahZWeRVEtnFuw QGrtb810RCI5WvMnGO4uK0 Xix5O1bV3huVZoNOMikKPu QqGoDKWfeg7ibMWuYCfxx8 RmEZN3czS1jDXspQLmIEJa IW79Fmvso4UuTcjof6AnS4 2huNQ4QGwei6noBQ1oGkY8 tfVeEMayw8ahdX8qPbN1CY wjFW4qWI4lEQOvrF3sdkqb XHBnYnJkcmhlYWRccGdicm QpAh6oqErjJHG5VZdrR2xe aD8mOfK9XBoyI2ppkL0qAM o7SObyiIB6KPAlvJ4vNO8d fhplg5kpARlmYXsoMIJrjr T4orK2SEEhoOUsU2TixZ8q TJClCK1lummrp2fyDMQ1LN bvNPAvKNP0IbNxNUYkn7Hd tmf3PjCrk7CgrOXkQBoaI3 3ja124MAUzwzBtR0xgtRFi oqtanIJmmhbfWLzakjM5SK BtysHkv2AvYAFiAQO5QTpg RUmofAQbPWExzKrcz8weM1 RscGFyXHBsYWluXGYxXGZz MjBcbGFuZzEwMzNcaGljaF kdVOvmJhPeUWCpFUwiN2ot GmXcJ1OlXMUzNdQdkKZjK6 ggVGhpcyByZXBvcnQgbWF5 CWqrW1i7MOAthfCzxEw5ow UfCoIzAUEcTMA3YImtxLPz OFXyu4NeoamegHAmNy4hkB EgKLYmsJ2eUBGmNIWcAMol SW1wcNg3JNNKzTBskEQkJj DHLMIyMR86vpQtVWUJxffe l5J2EVvbXECbb4OayBUyY2 gqq0GaZPEio33bVM2ln7Z8 e8bqWPR1HG9pv1RfVVMcqU ZceORaHQQka4Qwkvddg2Ix MLHwlkFhq2FuFERmguJxtU ZlDZUwgwLnzj4yrkMhVDAt KZMzA3FgihxjgGemjeZbYL Eewz1uzbIeITR6QIEMCHUr RNHzb7YocG2vbEZIOJD5kF Hvcx4ucfITbFFfLJMmro39 MVYzYV5uF2ukUMDjMXXvea FbxICde0OaELTluHQ8sDQx DD1BQzMHu60tXDJpOHKQhd KpTPZkxHlvzTN9iqL0yK9e IChGREEpLlx+IFRoZSBGRE DhGA3tsfAgv0LoajUymZeh WNIjmHYda6PzgTIcm4HahU tql1ZzuLDujFJtQI7jETEk clxwYXIgVVRNQiBMYWJvcm O0g8FsNXJnFINjLJZ2kUdh wlu2BSYosJ4eZDPaM1vbhb kfNOkrRUKqh4AclG3mxAYA yPYai1HziYFkyRSNgMLxSB 6rkmGxMTdYOXzTFZI6clDp EXZno6UmQWndN4tiK87xkC qinSa6hPP9SOQ0hY4dFis+ IFxwYXJccGFyIEFwcHJvcH NyEMDnpThpvsZyR7WswzLl lE6yhDAcngOkLU2aPC6tL4 X4dISlQRPgtbVom7scZZod dmUgYmVlbiByZXZpZXdlZC Fhr0GtPKxgBSG0GLrtxvPa bmNsdWRpbmcgSCZFLCBTcG QekECeIGT8KYrthaIswzSz PW3xgH3udCwxsF2zvBFwuH Z3pywjGHNlXCMlkTdbDZXa RL4xrEekrP1rHhTdOkMrZA pyGU2yBTUgW4zkwLUaXGMf XXNxE3baIrNrxQ7pqFpePA xjZjJcZnMyMFxwYXJccGFy XHBsYWluXGYxXGZzMjBcbG FuZzEwMzNcaGljaFxmMVxk SxGcMGJbXBneG4ykWpUsX1 QcXNXgNfBstAPwQ9txUVxy ANR3CTLiVB3onAMmUQ20zW Reu8wnCRgtcIlxio4fM92v pEJiJFcsaVixNTSym36cs0 RuHFWsjvZoie1nNHHrxtH5 xE9jDKEguEdiCBJssLDrWW Krv8OuYDhndUCvjnEjPQaw TOIwWOMquJFqhwP2yrUpbx VvtkGqEGHzcEbyASKse4Pa HIGwHTflx6Vdci2zvZOzRB JytbSRhCmwfESraE7uY3Lw RSVkFGWlqc3vWWIgrT2sTQ llc9NlzqfzOWNxBYAiIWMp ifUher7xLYRqnSHPTH6JEZ obgWTlw5HdluYcJ7jMBXT3 NUQwNjYwMjgxKSBleGNlcH AlSTZpis63TEBrqI6haSey KVVupC5euQ6caZqxtH8pBl NzXnPqLOyxMM3vZDGvO7pj dBIxNPClDLGuQ2nnDyUabE 9jaFxmMVxjZjJcZnMyMFxw YXJ9fQ== Embedded Images (test code = 6077791785) [facility]. METABOLIC PANEL ([id number])2022-11-03 17:25:32* Test Item Value Reference Range Interpretation Comme nts NA (test code = 0699365740) 139 mmol/L 135-145 K (test code = 9939456735) 4.2 mmol/L 3.5-5.0 CL (test code = 0864739419) 105 mmol/L 98-108 CO2 TOTAL (test code = 6090284895) 26 mmol/L 23-31 AGAP (test code = 8405295440) 8 2-16 BUN (test code = 0852771377) 9 mg/dL 7-23 GLUCOSE (test code = 8891563244) 93 mg/dL 70-110 CREATININE (test code = 4759120773) 0.60 mg/dL 0.50-1.04 TOTAL BILI (test code = 8544299148) 0.2 mg/dL 0.1-1.1 CALCIUM (test code = 9188756579) 9.2 mg/dL 8.6-10.6 T PROTEIN (test code = 4723877292) 7.0 g/dL 6.3-8.2 ALBUMIN (test code = 5631252230) 4.2 g/dL 3.5-5.0 ALK PHOS (test code = 1321171703) 118 U/L 34-122 ALTv (test code = 1742-6) 34 U/L 5-35 AST(SGOT) (test code = 8088206803) 34 U/L 13-40 eGFR (test code = 8666042161) 108.1 mL/min/1.73m2 ZAINAB (test code = ZAINAB) [...] or urine or abnormalities in imaging tests). [facility]. METABOLIC PANEL ([id number])2022-11-03 17:25:32* Test Item Value Reference Range Interpretation Comme nts NA (test code = 7147757035) 139 mmol/L 135-145 K (test code = 9450554638) 4.2 mmol/L 3.5-5.0 CL (test code = 2975307134) 105 mmol/L 98-108 CO2 TOTAL (test code = 5447161886) 26 mmol/L 23-31 AGAP (test code = 2459061383) 8 2-16 BUN (test code = 1431014424) 9 mg/dL 7-23 GLUCOSE (test code = 4683731552) 93 mg/dL 70-110 CREATININE (test code = 7461819669) 0.60 mg/dL 0.50-1.04 TOTAL BILI (test code = 4580790660) 0.2 mg/dL 0.1-1.1 CALCIUM (test code = 5764478543) 9.2 mg/dL 8.6-10.6 T PROTEIN (test code = 9858237304) 7.0 g/dL 6.3-8.2 ALBUMIN (test code = 5760466593) 4.2 g/dL 3.5-5.0 ALK PHOS (test code = 7877162725) 118 U/L 34-122 ALTv (test code = 1742-6) 34 U/L 5-35 AST(SGOT) (test code = 9983741929) 34 U/L 13-40 eGFR (test code = 5745099843) 108.1 mL/min/1.73m2 ZAINAB (test code = ZAINAB) [...] or urine or abnormalities in imaging tests). [facility]. METABOLIC PANEL ([id number])2022-11-03 17:25:32* Test Item Value Reference Range Interpretation Comme nts NA (test code = 7010286464) 139 mmol/L 135-145 K (test code = 0115125939) 4.2 mmol/L 3.5-5.0 CL (test code = 7467886568) 105 mmol/L 98-108 CO2 TOTAL (test code = 0468885100) 26 mmol/L 23-31 AGAP (test code = 1192848572) 8 2-16 BUN (test code = 5377686973) 9 mg/dL 7-23 GLUCOSE (test code = 4461424012) 93 mg/dL 70-110 CREATININE (test code = 1307395829) 0.60 mg/dL 0.50-1.04 TOTAL BILI (test code = 5993134439) 0.2 mg/dL 0.1-1.1 CALCIUM (test code = 5833031590) 9.2 mg/dL 8.6-10.6 T PROTEIN (test code = 6145409028) 7.0 g/dL 6.3-8.2 ALBUMIN (test code = 1194348626) 4.2 g/dL 3.5-5.0 ALK PHOS (test code = 1574370465) 118 U/L 34-122 ALTv (test code = 1742-6) 34 U/L 5-35 AST(SGOT) (test code = 4942362738) 34 U/L 13-40 eGFR (test code = 1903123238) 108.1 mL/min/1.73m2 ZAINAB (test code = ZAINAB) [...] or urine or abnormalities in imaging tests). [facility]. METABOLIC PANEL ([id number])2022-11-03 17:25:32* Test Item Value Reference Range Interpretation Comme nts NA (test code = 0510296933) 139 mmol/L 135-145 K (test code = 7592136313) 4.2 mmol/L 3.5-5.0 CL (test code = 7011689647) 105 mmol/L 98-108 CO2 TOTAL (test code = 8729362504) 26 mmol/L 23-31 AGAP (test code = 2859097224) 8 2-16 BUN (test code = 6369885301) 9 mg/dL 7-23 GLUCOSE (test code = 4106733867) 93 mg/dL 70-110 CREATININE (test code = 1538201759) 0.60 mg/dL 0.50-1.04 TOTAL BILI (test code = 5752517004) 0.2 mg/dL 0.1-1.1 CALCIUM (test code = 8492501288) 9.2 mg/dL 8.6-10.6 T PROTEIN (test code = 8023016683) 7.0 g/dL 6.3-8.2 ALBUMIN (test code = 2831067210) 4.2 g/dL 3.5-5.0 ALK PHOS (test code = 8329249125) 118 U/L 34-122 ALTv (test code = 1742-6) 34 U/L 5-35 AST(SGOT) (test code = 1470868947) 34 U/L 13-40 eGFR (test code = 2908812147) 108.1 mL/min/1.73m2 ZAINAB (test code = ZAINAB) [...] or urine or abnormalities in imaging tests). [facility]. METABOLIC PANEL ([id number])2022-11-03 17:25:32* Test Item Value Reference Range Interpretation Comme nts NA (test code = 2105907361) 139 mmol/L 135-145 K (test code = 9497309242) 4.2 mmol/L 3.5-5.0 CL (test code = 6034189992) 105 mmol/L 98-108 CO2 TOTAL (test code = 0465823905) 26 mmol/L 23-31 AGAP (test code = 5304016841) 8 2-16 BUN (test code = 9536672866) 9 mg/dL 7-23 GLUCOSE (test code = 9758596215) 93 mg/dL 70-110 CREATININE (test code = 4628578172) 0.60 mg/dL 0.50-1.04 TOTAL BILI (test code = 6167320620) 0.2 mg/dL 0.1-1.1 CALCIUM (test code = 5149612554) 9.2 mg/dL 8.6-10.6 T PROTEIN (test code = 9251332743) 7.0 g/dL 6.3-8.2 ALBUMIN (test code = 5180582339) 4.2 g/dL 3.5-5.0 ALK PHOS (test code = 0625610340) 118 U/L 34-122 ALTv (test code = 1742-6) 34 U/L 5-35 AST(SGOT) (test code = 2148506117) 34 U/L 13-40 eGFR (test code = 2940766606) 108.1 mL/min/1.73m2 ZAINAB (test code = ZAINAB) [...] or urine or abnormalities in imaging tests). [facility]. METABOLIC PANEL ([id number])2022-11-03 17:25:32* Test Item Value Reference Range Interpretation Comme nts NA (test code = 8401831303) 139 mmol/L 135-145 K (test code = 5723832437) 4.2 mmol/L 3.5-5.0 CL (test code = 2070825729) 105 mmol/L 98-108 CO2 TOTAL (test code = 9309699669) 26 mmol/L 23-31 AGAP (test code = 2557515440) 8 2-16 BUN (test code = 9809693037) 9 mg/dL 7-23 GLUCOSE (test code = 3945286557) 93 mg/dL 70-110 CREATININE (test code = 7683764725) 0.60 mg/dL 0.50-1.04 TOTAL BILI (test code = 3025488390) 0.2 mg/dL 0.1-1.1 CALCIUM (test code = 6988404688) 9.2 mg/dL 8.6-10.6 T PROTEIN (test code = 2217698929) 7.0 g/dL 6.3-8.2 ALBUMIN (test code = 2465253894) 4.2 g/dL 3.5-5.0 ALK PHOS (test code = 4214626341) 118 U/L 34-122 ALTv (test code = 1742-6) 34 U/L 5-35 AST(SGOT) (test code = 4498088490) 34 U/L 13-40 eGFR (test code = 5311807601) 108.1 mL/min/1.73m2 ZAINAB (test code = ZAINAB) [...] or urine or abnormalities in imaging tests). [facility]. METABOLIC PANEL ([id number])2022-11-03 17:25:32* Test Item Value Reference Range Interpretation Comme nts NA (test code = 5080076665) 139 mmol/L 135-145 K (test code = 0508382237) 4.2 mmol/L 3.5-5.0 CL (test code = 8680559782) 105 mmol/L 98-108 CO2 TOTAL (test code = 3519533766) 26 mmol/L 23-31 AGAP (test code = 0392606473) 8 2-16 BUN (test code = 1026644236) 9 mg/dL 7-23 GLUCOSE (test code = 7255161840) 93 mg/dL 70-110 CREATININE (test code = 2483063882) 0.60 mg/dL 0.50-1.04 TOTAL BILI (test code = 8261122810) 0.2 mg/dL 0.1-1.1 CALCIUM (test code = 6476501014) 9.2 mg/dL 8.6-10.6 T PROTEIN (test code = 3269713354) 7.0 g/dL 6.3-8.2 ALBUMIN (test code = 2282447679) 4.2 g/dL 3.5-5.0 ALK PHOS (test code = 4537632487) 118 U/L 34-122 ALTv (test code = 1742-6) 34 U/L 5-35 AST(SGOT) (test code = 1808384417) 34 U/L 13-40 eGFR (test code = 8690299936) 108.1 mL/min/1.73m2 ZAINAB (test code = ZAINAB) [...] or urine or abnormalities in imaging tests). [facility]. METABOLIC PANEL ([id number])2022-11-03 17:25:32* Test Item Value Reference Range Interpretation Comme nts NA (test code = 6397344330) 139 mmol/L 135-145 K (test code = 8202822699) 4.2 mmol/L 3.5-5.0 CL (test code = 0340439819) 105 mmol/L 98-108 CO2 TOTAL (test code = 8448333194) 26 mmol/L 23-31 AGAP (test code = 6276850029) 8 2-16 BUN (test code = 0904074062) 9 mg/dL 7-23 GLUCOSE (test code = 1546021687) 93 mg/dL 70-110 CREATININE (test code = 6537802834) 0.60 mg/dL 0.50-1.04 TOTAL BILI (test code = 6280300415) 0.2 mg/dL 0.1-1.1 CALCIUM (test code = 3479483502) 9.2 mg/dL 8.6-10.6 T PROTEIN (test code = 2393077060) 7.0 g/dL 6.3-8.2 ALBUMIN (test code = 3624065376) 4.2 g/dL 3.5-5.0 ALK PHOS (test code = 0851698388) 118 U/L 34-122 ALTv (test code = 1742-6) 34 U/L 5-35 AST(SGOT) (test code = 8444373977) 34 U/L 13-40 eGFR (test code = 2475094963) 108.1 mL/min/1.73m2 ZAINAB (test code = ZAINAB) [...] or urine or abnormalities in imaging tests). [facility]. METABOLIC PANEL ([id number])2022-11-03 17:25:32* Test Item Value Reference Range Interpretation Comme nts NA (test code = 7081426246) 139 mmol/L 135-145 K (test code = 7034705288) 4.2 mmol/L 3.5-5.0 CL (test code = 7590874816) 105 mmol/L 98-108 CO2 TOTAL (test code = 7067087452) 26 mmol/L 23-31 AGAP (test code = 4666461968) 8 2-16 BUN (test code = 2657536774) 9 mg/dL 7-23 GLUCOSE (test code = 9611612073) 93 mg/dL 70-110 CREATININE (test code = 5529564230) 0.60 mg/dL 0.50-1.04 TOTAL BILI (test code = 0419662636) 0.2 mg/dL 0.1-1.1 CALCIUM (test code = 5993635719) 9.2 mg/dL 8.6-10.6 T PROTEIN (test code = 7003593686) 7.0 g/dL 6.3-8.2 ALBUMIN (test code = 3893303847) 4.2 g/dL 3.5-5.0 ALK PHOS (test code = 1069385358) 118 U/L 34-122 ALTv (test code = 1742-6) 34 U/L 5-35 AST(SGOT) (test code = 4409007960) 34 U/L 13-40 eGFR (test code = 83846-0) 108.1 mL/min/1.73m2 ZAINAB (test code = ZAINAB) [...] or urine or abnormalities in imaging tests). [facility]. METABOLIC PANEL ([id number])2022-11-03 17:25:32* Test Item Value Reference Range Interpretation Comme nts NA (test code = 7898555439) 139 mmol/L 135-145 K (test code = 3970220381) 4.2 mmol/L 3.5-5.0 CL (test code = 9951180337) 105 mmol/L 98-108 CO2 TOTAL (test code = 7800849612) 26 mmol/L 23-31 AGAP (test code = 9951437082) 8 2-16 BUN (test code = 0751036986) 9 mg/dL 7-23 GLUCOSE (test code = 8530986671) 93 mg/dL 70-110 CREATININE (test code = 6778798135) 0.60 mg/dL 0.50-1.04 TOTAL BILI (test code = 6232937172) 0.2 mg/dL 0.1-1.1 CALCIUM (test code = 8447413559) 9.2 mg/dL 8.6-10.6 T PROTEIN (test code = 8522150671) 7.0 g/dL 6.3-8.2 ALBUMIN (test code = 4464791188) 4.2 g/dL 3.5-5.0 ALK PHOS (test code = 8951436643) 118 U/L 34-122 ALTv (test code = 1742-6) 34 U/L 5-35 AST(SGOT) (test code = 4460949998) 34 U/L 13-40 eGFR (test code = 56976-5) 108.1 mL/min/1.73m2 ZAINAB (test code = ZAINAB) [...] or urine or abnormalities in imaging tests). [facility]. METABOLIC PANEL ([id number])2022-11-03 17:25:32* Test Item Value Reference Range Interpretation Comme nts NA (test code = 1569746440) 139 mmol/L 135-145 K (test code = 7398369702) 4.2 mmol/L 3.5-5.0 CL (test code = 4638729119) 105 mmol/L 98-108 CO2 TOTAL (test code = 7566499854) 26 mmol/L 23-31 AGAP (test code = 0057991124) 8 2-16 BUN (test code = 0501627753) 9 mg/dL 7-23 GLUCOSE (test code = 8097189704) 93 mg/dL 70-110 CREATININE (test code = 8799767572) 0.60 mg/dL 0.50-1.04 TOTAL BILI (test code = 0964902290) 0.2 mg/dL 0.1-1.1 CALCIUM (test code = 2952338776) 9.2 mg/dL 8.6-10.6 T PROTEIN (test code = 1909126100) 7.0 g/dL 6.3-8.2 ALBUMIN (test code = 2172191464) 4.2 g/dL 3.5-5.0 ALK PHOS (test code = 3785799297) 118 U/L 34-122 ALTv (test code = 1742-6) 34 U/L 5-35 AST(SGOT) (test code = 3284121363) 34 U/L 13-40 eGFR (test code = 22690-6) 108.1 mL/min/1.73m2 ZAINAB (test code = ZAINAB) [...] or urine or abnormalities in imaging tests). [facility]. METABOLIC PANEL ([id number])2022-11-03 17:25:32* Test Item Value Reference Range Interpretation Comme nts NA (test code = 9298916618) 139 mmol/L 135-145 K (test code = 0622579795) 4.2 mmol/L 3.5-5.0 CL (test code = 2467600449) 105 mmol/L 98-108 CO2 TOTAL (test code = 3304570106) 26 mmol/L 23-31 AGAP (test code = 6243902749) 8 2-16 BUN (test code = 2890054422) 9 mg/dL 7-23 GLUCOSE (test code = 1871566767) 93 mg/dL 70-110 CREATININE (test code = 0227033993) 0.60 mg/dL 0.50-1.04 TOTAL BILI (test code = 2766670340) 0.2 mg/dL 0.1-1.1 CALCIUM (test code = 4780267999) 9.2 mg/dL 8.6-10.6 T PROTEIN (test code = 0422126565) 7.0 g/dL 6.3-8.2 ALBUMIN (test code = 2934881287) 4.2 g/dL 3.5-5.0 ALK PHOS (test code = 0418024730) 118 U/L 34-122 ALTv (test code = 1742-6) 34 U/L 5-35 AST(SGOT) (test code = 1810806781) 34 U/L 13-40 eGFR (test code = 82770-3) 108.1 mL/min/1.73m2 ZAINAB (test code = ZAINAB) [...] or urine or abnormalities in imaging tests). [facility]. METABOLIC PANEL ([id number])2022-11-03 17:25:32* Test Item Value Reference Range Interpretation Comme nts NA (test code = 7899023742) 139 mmol/L 135-145 K (test code = 9605622007) 4.2 mmol/L 3.5-5.0 CL (test code = 5272716199) 105 mmol/L 98-108 CO2 TOTAL (test code = 4968165275) 26 mmol/L 23-31 AGAP (test code = 0880651380) 8 2-16 BUN (test code = 3899085603) 9 mg/dL 7-23 GLUCOSE (test code = 4354020589) 93 mg/dL 70-110 CREATININE (test code = 5573784317) 0.60 mg/dL 0.50-1.04 TOTAL BILI (test code = 3745376295) 0.2 mg/dL 0.1-1.1 CALCIUM (test code = 9546788178) 9.2 mg/dL 8.6-10.6 T PROTEIN (test code = 5202067455) 7.0 g/dL 6.3-8.2 ALBUMIN (test code = 2864883378) 4.2 g/dL 3.5-5.0 ALK PHOS (test code = 4134889660) 118 U/L 34-122 ALTv (test code = 1742-6) 34 U/L 5-35 AST(SGOT) (test code = 6217420781) 34 U/L 13-40 eGFR (test code = 97440-4) 108.1 mL/min/1.73m2 ZAINAB (test code = ZAINAB) [...] or urine or abnormalities in imaging tests). [facility]. METABOLIC PANEL ([id number])2022-11-03 17:25:32* Test Item Value Reference Range Interpretation Comme nts NA (test code = 2590692388) 139 mmol/L 135-145 K (test code = 9961147175) 4.2 mmol/L 3.5-5.0 CL (test code = 1167727902) 105 mmol/L 98-108 CO2 TOTAL (test code = 7978113200) 26 mmol/L 23-31 AGAP (test code = 7828914926) 8 2-16 BUN (test code = 7207025743) 9 mg/dL 7-23 GLUCOSE (test code = 0960238195) 93 mg/dL 70-110 CREATININE (test code = 4083986116) 0.60 mg/dL 0.50-1.04 TOTAL BILI (test code = 7460508432) 0.2 mg/dL 0.1-1.1 CALCIUM (test code = 1697039545) 9.2 mg/dL 8.6-10.6 T PROTEIN (test code = 2822394216) 7.0 g/dL 6.3-8.2 ALBUMIN (test code = 0864484724) 4.2 g/dL 3.5-5.0 ALK PHOS (test code = 0314148792) 118 U/L 34-122 ALTv (test code = 1742-6) 34 U/L 5-35 AST(SGOT) (test code = 7117420014) 34 U/L 13-40 eGFR (test code = 85556-0) 108.1 mL/min/1.73m2 ZAINAB (test code = ZAINAB) [...] or urine or abnormalities in imaging tests). [facility]. METABOLIC PANEL ([id number])2022-11-03 17:25:32* Test Item Value Reference Range Interpretation Comme nts NA (test code = 8198807983) 139 mmol/L 135-145 K (test code = 2763931088) 4.2 mmol/L 3.5-5.0 CL (test code = 5667700679) 105 mmol/L 98-108 CO2 TOTAL (test code = 5191588751) 26 mmol/L 23-31 AGAP (test code = 4649769027) 8 2-16 BUN (test code = 4960721952) 9 mg/dL 7-23 GLUCOSE (test code = 9143458322) 93 mg/dL 70-110 CREATININE (test code = 7635438927) 0.60 mg/dL 0.50-1.04 TOTAL BILI (test code = 4056256324) 0.2 mg/dL 0.1-1.1 CALCIUM (test code = 6288817511) 9.2 mg/dL 8.6-10.6 T PROTEIN (test code = 6754214602) 7.0 g/dL 6.3-8.2 ALBUMIN (test code = 6269120159) 4.2 g/dL 3.5-5.0 ALK PHOS (test code = 1231025743) 118 U/L 34-122 ALTv (test code = 1742-6) 34 U/L 5-35 AST(SGOT) (test code = 3896100396) 34 U/L 13-40 eGFR (test code = 87496-3) 108.1 mL/min/1.73m2 ZAINAB (test code = ZAINAB) [...] or urine or abnormalities in imaging tests). [facility]. METABOLIC PANEL (14732)2022-11-03 17:25:32* Test Item Value Reference Range Interpretation Comme nts NA (test code = 5164176704) 139 mmol/L 135-145 K (test code = 7475453800) 4.2 mmol/L 3.5-5.0 CL (test code = 1605353568) 105 mmol/L 98-108 CO2 TOTAL (test code = 1249024837) 26 mmol/L 23-31 AGAP (test code = 5240475551) 8 2-16 BUN (test code = 7156847023) 9 mg/dL 7-23 GLUCOSE (test code = 2315851657) 93 mg/dL 70-110 CREATININE (test code = 4161420248) 0.60 mg/dL 0.50-1.04 TOTAL BILI (test code = 1435813213) 0.2 mg/dL 0.1-1.1 CALCIUM (test code = 2171467750) 9.2 mg/dL 8.6-10.6 T PROTEIN (test code = 3999593809) 7.0 g/dL 6.3-8.2 ALBUMIN (test code = 9500269415) 4.2 g/dL 3.5-5.0 ALK PHOS (test code = 8554812549) 118 U/L 34-122 ALTv (test code = 1742-6) 34 U/L 5-35 AST(SGOT) (test code = 7145951643) 34 U/L 13-40 eGFR (test code = 82287-3) 108.1 mL/min/1.73m2 ZAINAB (test code = ZAINAB) [...] or urine or abnormalities in imaging tests). [facility]. METABOLIC PANEL (51521)2022-11-03 17:25:32* Test Item Value Reference Range Interpretation Comme nts NA (test code = 4130046338) 139 mmol/L 135-145 K (test code = 2796612957) 4.2 mmol/L 3.5-5.0 CL (test code = 7837499433) 105 mmol/L 98-108 CO2 TOTAL (test code = 9864725033) 26 mmol/L 23-31 AGAP (test code = 3014615466) 8 2-16 BUN (test code = 0022815832) 9 mg/dL 7-23 GLUCOSE (test code = 5409011029) 93 mg/dL 70-110 CREATININE (test code = 3069413655) 0.60 mg/dL 0.50-1.04 TOTAL BILI (test code = 0871974679) 0.2 mg/dL 0.1-1.1 CALCIUM (test code = 6021775177) 9.2 mg/dL 8.6-10.6 T PROTEIN (test code = 8513341550) 7.0 g/dL 6.3-8.2 ALBUMIN (test code = 4302298009) 4.2 g/dL 3.5-5.0 ALK PHOS (test code = 8440670523) 118 U/L 34-122 ALTv (test code = 1742-6) 34 U/L 5-35 AST(SGOT) (test code = 7794125566) 34 U/L 13-40 eGFR (test code = 84100-0) 108.1 mL/min/1.73m2 ZAINAB (test code = ZAINAB) [...] urine or abnormalities in [facility] tests). [facility] (92013[facility]-03 17:25:32* Test Item Value Reference Range Interpretation Comme nts NA (test code = 4332967606) 139 mmol/L 135-145 K (test code = 5470164368) 4.2 mmol/L 3.5-5.0 CL (test code = 6277876713) 105 mmol/L 98-108 CO2 TOTAL (test code = 2341996511) 26 mmol/L 23-31 AGAP (test code = 5275252756) 8 2-16 BUN (test code = 5968954690) 9 mg/dL 7-23 GLUCOSE (test code = 4296148447) 93 mg/dL 70-110 CREATININE (test code = 9803552813) 0.60 mg/dL 0.50-1.04 TOTAL BILI (test code = 6980902862) 0.2 mg/dL 0.1-1.1 CALCIUM (test code = 7605029423) 9.2 mg/dL 8.6-10.6 T PROTEIN (test code = 8280105760) 7.0 g/dL 6.3-8.2 ALBUMIN (test code = 3670762735) 4.2 g/dL 3.5-5.0 ALK PHOS (test code = 0652879687) 118 U/L 34-122 ALTv (test code = 1742-6) 34 U/L 5-35 AST(SGOT) (test code = 7351313133) 34 U/L 13-40 eGFR (test code = 68032-5) 108.1 mL/min/1.73m2 ZAINAB (test code = ZAINAB) [...] or urine or abnormalities in imaging tests). [facility] WITH [id number] 17:18:52* Test Item Value Reference Range Interpretation Comme nts WBC (test code = 6690-2) 7.41 See_Comment [[facility]] The system which generated this result transmitted reference range: 4.30 - 11.10 10*3/?L. The reference range was not used to interpret this result as normal/abnormal. RBC (test code = 789-8) 4.20 See_Comment [[employer]ated [employer]] The system which generated this result transmitted [...] g/dL 31.6-35.1 L RDW-SD (test code = 43691-9) 46.2 fL 39.0-49.9 RDW-CV (test code = 788-0) 17.9 % 12.0-15.5 H PLT (test code = 777-3) 304 See_Comment [Automated messa ge] The system which generated this result transmitted reference range: 166 - 358 10*3/?L. The reference range was not used to interpret this result as normal/abnormal. MPV (test code = 49998-3) 11.0 fL 9.5-12.9 NRBC/100 WBC (test code = 2455504136) 0.0 See_Comment [Automated [employer]age] The system which generated this result transmitted reference range: 0.0 - 10.0 /100 WBCs. The reference range was not used to interpret this result as normal/abnormal. NRBC x10^3 (test code = 6455614387) See_Comment [Automated messa ge] The system which generated this result transmitted reference range: 10*3/?L. The reference range was not used to interpret this result as normal/abnormal. GRAN MAT (NEUT) % (test code = 770-8) 68.6 % IMM GRAN % (test code = 8584545096) 0.70 % LYMPH % (test code = 736-9) 19.8 % MONO % (test code = 5905-5) 5.3 % EOS % (test code = 713-8) 5.1 % BASO % (test code = 706-2) 0.5 % GRAN MAT x10^3(ANC) (test code = 8418368739) 5.08 10*3/uL 1.88-7.09 IMM GRAN x10^3 (test code = 6971615665) 0.05 10*3/uL 0.00-0.06 LYMPH x10^3 (test code = 731-0) 1.47 10*3/uL 1.32-3.29 MONO x10^3 (test code = 742-7) 0.39 10*3/uL 0.33-0.92 EOS x10^3 (test code = 711-2) 0.38 10*3/uL 0.03-0.39 BASO x10^3 (test code = 704-7) 0.04 10*3/uL 0.01-0.07 Lab Interpretation (test code = 24228-7) Abnormal [facility] WITH [id number] 17:18:52* Test Item Value Reference Range Interpretation [...] g/dL 31.6-35.1 L RDW-SD (test code = 47035-3) 46.2 fL 39.0-49.9 RDW-CV (test code = 788-0) 17.9 % 12.0-15.5 H PLT (test code = 777-3) 304 See_Comment [Automated messa ge] The system which generated this result transmitted reference range: 166 - 358 10*3/?L. The reference range was not used to interpret this result as normal/abnormal. MPV (test code = 45900-8) 11.0 fL 9.5-12.9 NRBC/100 WBC (test code = 6772717677) 0.0 See_Comment [Automated me ssage] The system which generated this result transmitted reference range: 0.0 - 10.0 /100 WBCs. The reference range was not used to interpret this result as normal/abnormal. NRBC x10^3 (test code = 1437026996) See_Comment [Automated messa ge] The system which generated this result transmitted reference range: 10*3/?L. The reference range was not used to interpret this result as normal/abnormal. GRAN MAT (NEUT) % (test code = 770-8) 68.6 % IMM GRAN % (test code = 8322965203) 0.70 % LYMPH % (test code = 736-9) 19.8 % MONO % (test code = 5905-5) 5.3 % EOS % (test code = 713-8) 5.1 % BASO % (test code = 706-2) 0.5 % GRAN MAT x10^3(ANC) (test code = 7608483386) 5.08 10*3/uL 1.88-7.09 IMM GRAN x10^3 (test code = 8285155880) 0.05 10*3/uL 0.00-0.06 LYMPH x10^3 (test code = 731-0) 1.47 10*3/uL 1.32-3.29 MONO x10^3 (test code = 742-7) 0.39 10*3/uL 0.33-0.92 EOS x10^3 (test code = 711-2) 0.38 10*3/uL 0.03-0.39 BASO x10^3 (test code = 704-7) 0.04 10*3/uL 0.01-0.07 Lab Interpretation (test code = 20226-9) Abnormal [facility] WITH [id number] 17:18:52* Test Item Value Reference Range Interpretation [...] g/dL 31.6-35.1 L RDW-SD (test code = 61270-2) 46.2 fL 39.0-49.9 RDW-CV (test code = 788-0) 17.9 % 12.0-15.5 H PLT (test code = 777-3) 304 See_Comment [Automated [employer]] The system which generated this result transmitted reference range: 166 - 358 10*3/?L. The reference range was not used to interpret this result as normal/abnormal. MPV (test code = 35267-4) 11.0 fL 9.5-12.9 NRBC/100 WBC (test code = 5762268205) 0.0 See_Comment [Automated [employer] ssage] The system which generated this result transmitted reference range: 0.0 - 10.0 /100 WBCs. The reference range was not used to interpret this result as normal/abnormal. NRBC x10^3 (test code = 1181945738) See_Comment [[employer]ated [employer]] The system which generated this result transmitted reference range: 10*3/?L. The reference range was not used to interpret this result as normal/abnormal. GRAN MAT (NEUT) % (test code = 770-8) 68.6 % IMM GRAN % (test code = 8039758574) 0.70 % LYMPH % (test code = 736-9) 19.8 % MONO % (test code = 5905-5) 5.3 % EOS % (test code = 713-8) 5.1 % BASO % (test code = 706-2) 0.5 % GRAN MAT x10^3(ANC) (test code = 6636256262) 5.08 10*3/uL 1.88-7.09 IMM GRAN x10^3 (test code = 9004745867) 0.05 10*3/uL 0.00-0.06 LYMPH x10^3 (test code = 731-0) 1.47 10*3/uL 1.32-3.29 MONO x10^3 (test code = 742-7) 0.39 10*3/uL 0.33-0.92 EOS x10^3 (test code = 711-2) 0.38 10*3/uL 0.03-0.39 BASO x10^3 (test code = 704-7) 0.04 10*3/uL 0.01-0.07 Lab Interpretation (test code = 83198-4) Abnormal [facility] WITH [id number] 17:18:52* Test Item Value Reference Range Interpretation Comme nts WBC (test code = 6690-2) 7.41 See_Comment [[employer]] The system which generated this result transmitted reference range: 4.30 - 11.10 10*3/?L. The reference range was not used to interpret this result as normal/abnormal. RBC (test code = 789-8) 4.20 See_Comment [[employer]ated [employer]] The system which generated this result [...] g/dL 31.6-35.1 L RDW-SD (test code = 57198-2) 46.2 fL 39.0-49.9 RDW-CV (test code = 788-0) 17.9 % 12.0-15.5 H PLT (test code = 777-3) 304 See_Comment [Automated messa ge] The system which generated this result transmitted reference range: 166 - 358 10*3/?L. The reference range was not used to interpret this result as normal/abnormal. MPV (test code = 42898-9) 11.0 fL 9.5-12.9 NRBC/100 WBC (test code = 8729153803) 0.0 See_Comment [Automated me ssage] The system which generated this result transmitted reference range: 0.0 - 10.0 /100 WBCs. The reference range was not used to interpret this result as normal/abnormal. NRBC x10^3 (test code = 5935625356) See_Comment [Automated messa ge] The system which generated this result transmitted reference range: 10*3/?L. The reference range was not used to interpret this result as normal/abnormal. GRAN MAT (NEUT) % (test code = 770-8) 68.6 % IMM GRAN % (test code = 0665395716) 0.70 % LYMPH % (test code = 736-9) 19.8 % MONO % (test code = 5905-5) 5.3 % EOS % (test code = 713-8) 5.1 % BASO % (test code = 706-2) 0.5 % GRAN MAT x10^3(ANC) (test code = 3188392599) 5.08 10*3/uL 1.88-7.09 IMM GRAN x10^3 (test code = 6040534580) 0.05 10*3/uL 0.00-0.06 LYMPH x10^3 (test code = 731-0) 1.47 10*3/uL 1.32-3.29 MONO x10^3 (test code = 742-7) 0.39 10*3/uL 0.33-0.92 EOS x10^3 (test code = 711-2) 0.38 10*3/uL 0.03-0.39 BASO x10^3 (test code = 704-7) 0.04 10*3/uL 0.01-0.07 Lab Interpretation (test code = 74878-2) Abnormal [facility] WITH [id number] 17:18:52* Test Item Value Reference Range Interpretation Comme nts WBC (test code = 6690-2) 7.41 See_Comment [Automated messa ge] The system which generated this result transmitted reference range: 4.30 - 11.10 10*3/?L. The reference range was not used to interpret this result as normal/abnormal. RBC (test code = 789-8) 4.20 See_Comment [Automated [employer]] The system which generated this result [...] g/dL 31.6-35.1 L RDW-SD (test code = 18239-1) 46.2 fL 39.0-49.9 RDW-CV (test code = 788-0) 17.9 % 12.0-15.5 H PLT (test code = 777-3) 304 See_Comment [Automated [employer]] The system which generated this result transmitted reference range: 166 - 358 10*3/?L. The reference range was not used to interpret this result as normal/abnormal. MPV (test code = 96395-2) 11.0 fL 9.5-12.9 NRBC/100 WBC (test code = 6125463400) 0.0 See_Comment [Automated [employer] ss[facility]] The system which generated this result transmitted reference range: 0.0 - 10.0 /100 WBCs. The reference range was not used to interpret this result as normal/abnormal. NRBC x10^3 (test code = 9648064403) See_Comment [Automated [employer]] The system which generated this result transmitted reference range: 10*3/?L. The reference range was not used to interpret this result as normal/abnormal. GRAN MAT (NEUT) % (test code = 770-8) 68.6 % IMM GRAN % (test code = 1684431360) 0.70 % LYMPH % (test code = 736-9) 19.8 % MONO % (test code = 5905-5) 5.3 % EOS % (test code = 713-8) 5.1 % BASO % (test code = 706-2) 0.5 % GRAN MAT x10^3(ANC) (test code = 2960440404) 5.08 10*3/uL 1.88-7.09 IMM GRAN x10^3 (test code = 9745471547) 0.05 10*3/uL 0.00-0.06 LYMPH x10^3 (test code = 731-0) 1.47 10*3/uL 1.32-3.29 MONO x10^3 (test code = 742-7) 0.39 10*3/uL 0.33-0.92 EOS x10^3 (test code = 711-2) 0.38 10*3/uL 0.03-0.39 BASO x10^3 (test code = 704-7) 0.04 10*3/uL 0.01-0.07 Lab Interpretation (test code = 71076-7) Abnormal [facility] WITH [id number] 17:18:52* Test Item Value Reference Range Interpretation Comme nts WBC (test code = 6690-2) 7.41 See_Comment [[employer]ated [employer]] The system which generated this result transmitted reference range: 4.30 - 11.10 10*3/?L. The reference range was not used to interpret this result as normal/abnormal. RBC (test code = 789-8) 4.20 See_Comment [[employer]] The system which generated this result [...] g/dL 31.6-35.1 L RDW-SD (test code = 38884-1) 46.2 fL 39.0-49.9 RDW-CV (test code = 788-0) 17.9 % 12.0-15.5 H PLT (test code = 777-3) 304 See_Comment [Automated messa ge] The system which generated this result transmitted reference range: 166 - 358 10*3/?L. The reference range was not used to interpret this result as normal/abnormal. MPV (test code = 74807-2) 11.0 fL 9.5-12.9 NRBC/100 WBC (test code = 1353488470) 0.0 See_Comment [Automated [employer]] The system which generated this result transmitted reference range: 0.0 - 10.0 /100 WBCs. The reference range was not used to interpret this result as normal/abnormal. NRBC x10^3 (test code = 3324389245) See_Comment [Automated messa ge] The system which generated this result transmitted reference range: 10*3/?L. The reference range was not used to interpret this result as normal/abnormal. GRAN MAT (NEUT) % (test code = 770-8) 68.6 % IMM GRAN % (test code = 9084071649) 0.70 % LYMPH % (test code = 736-9) 19.8 % MONO % (test code = 5905-5) 5.3 % EOS % (test code = 713-8) 5.1 % BASO % (test code = 706-2) 0.5 % GRAN MAT x10^3(ANC) (test code = 2686696418) 5.08 10*3/uL 1.88-7.09 IMM GRAN x10^3 (test code = 0007143948) 0.05 10*3/uL 0.00-0.06 LYMPH x10^3 (test code = 731-0) 1.47 10*3/uL 1.32-3.29 MONO x10^3 (test code = 742-7) 0.39 10*3/uL 0.33-0.92 EOS x10^3 (test code = 711-2) 0.38 10*3/uL 0.03-0.39 BASO x10^3 (test code = 704-7) 0.04 10*3/uL 0.01-0.07 Lab Interpretation (test code = 11665-2) Abnormal [facility] WITH [id number] 17:18:52* Test Item Value Reference Range Interpretation Comme nts WBC (test code = 6690-2) 7.41 See_Comment [Automated [employer] ge] The system which generated this result transmitted reference range: 4.30 - 11.10 10*3/?L. The reference range was not used to interpret this result as normal/abnormal. RBC (test code = 789-8) 4.20 See_Comment [Automated [employer]] The system which generated this result [...] g/dL 31.6-35.1 L RDW-SD (test code = 01564-9) 46.2 fL 39.0-49.9 RDW-CV (test code = 788-0) 17.9 % 12.0-15.5 H PLT (test code = 777-3) 304 See_Comment [Automated [employer]] The system which generated this result transmitted reference range: 166 - 358 10*3/?L. The reference range was not used to interpret this result as normal/abnormal. MPV (test code = 97351-1) 11.0 fL 9.5-12.9 NRBC/100 WBC (test code = 0418840755) 0.0 See_Comment [Automated [employer] ssage] The system which generated this result transmitted reference range: 0.0 - 10.0 /100 WBCs. The reference range was not used to interpret this result as normal/abnormal. NRBC x10^3 (test code = 0231354008) See_Comment [Automated messa ge] The system which generated this result transmitted reference range: 10*3/?L. The reference range was not used to interpret this result as normal/abnormal. GRAN MAT (NEUT) % (test code = 770-8) 68.6 % IMM GRAN % (test code = 5449056909) 0.70 % LYMPH % (test code = 736-9) 19.8 % MONO % (test code = 5905-5) 5.3 % EOS % (test code = 713-8) 5.1 % BASO % (test code = 706-2) 0.5 % GRAN MAT x10^3(ANC) (test code = 3602291473) 5.08 10*3/uL 1.88-7.09 IMM GRAN x10^3 (test code = 0973742911) 0.05 10*3/uL 0.00-0.06 LYMPH x10^3 (test code = 731-0) 1.47 10*3/uL 1.32-3.29 MONO x10^3 (test code = 742-7) 0.39 10*3/uL 0.33-0.92 EOS x10^3 (test code = 711-2) 0.38 10*3/uL 0.03-0.39 BASO x10^3 (test code = 704-7) 0.04 10*3/uL 0.01-0.07 Lab Interpretation (test code = 93356-9) Abnormal [facility] WITH [id number] 17:18:52* Test Item Value Reference Range Interpretation [...] g/dL 31.6-35.1 L RDW-SD (test code = 04022-7) 46.2 fL 39.0-49.9 RDW-CV (test code = 788-0) 17.9 % 12.0-15.5 H PLT (test code = 777-3) 304 See_Comment [Automated messa ge] The system which generated this result transmitted reference range: 166 - 358 10*3/?L. The reference range was not used to interpret this result as normal/abnormal. MPV (test code = 77542-3) 11.0 fL 9.5-12.9 NRBC/100 WBC (test code = 7924641203) 0.0 See_Comment [Automated [employer] ssage] The system which generated this result transmitted reference range: 0.0 - 10.0 /100 WBCs. The reference range was not used to interpret this result as normal/abnormal. NRBC x10^3 (test code = 5099360870) See_Comment [Automated [employer]] The system which generated this result transmitted reference range: 10*3/?L. The reference range was not used to interpret this result as normal/abnormal. GRAN MAT (NEUT) % (test code = 770-8) 68.6 % IMM GRAN % (test code = 3839403889) 0.70 % LYMPH % (test code = 736-9) 19.8 % MONO % (test code = 5905-5) 5.3 % EOS % (test code = 713-8) 5.1 % BASO % (test code = 706-2) 0.5 % GRAN MAT x10^3(ANC) (test code = 0145404422) 5.08 10*3/uL 1.88-7.09 IMM GRAN x10^3 (test code = 7536598253) 0.05 10*3/uL 0.00-0.06 LYMPH x10^3 (test code = 731-0) 1.47 10*3/uL 1.32-3.29 MONO x10^3 (test code = 742-7) 0.39 10*3/uL 0.33-0.92 EOS x10^3 (test code = 711-2) 0.38 10*3/uL 0.03-0.39 BASO x10^3 (test code = 704-7) 0.04 10*3/uL 0.01-0.07 Lab Interpretation (test code = 78318-1) Abnormal [facility] WITH [id number] 17:18:52* Test Item Value Reference Range Interpretation [...] g/dL 31.6-35.1 L RDW-SD (test code = 43078-3) 46.2 fL 39.0-49.9 RDW-CV (test code = 788-0) 17.9 % 12.0-15.5 H PLT (test code = 777-3) 304 See_Comment [Automated messa ge] The system which generated this result transmitted reference range: 166 - 358 10*3/?L. The reference range was not used to interpret this result as normal/abnormal. MPV (test code = 99797-5) 11.0 fL 9.5-12.9 NRBC/100 WBC (test code = 4726303340) 0.0 See_Comment [Automated [employer] ssage] The system which generated this result transmitted reference range: 0.0 - 10.0 /100 WBCs. The reference range was not used to interpret this result as normal/abnormal. NRBC x10^3 (test code = 3401640357) See_Comment [Automated messa ge] The system which generated this result transmitted reference range: 10*3/?L. The reference range was not used to interpret this result as normal/abnormal. GRAN MAT (NEUT) % (test code = 770-8) 68.6 % IMM GRAN % (test code = 9437266691) 0.70 % LYMPH % (test code = 736-9) 19.8 % MONO % (test code = 5905-5) 5.3 % EOS % (test code = 713-8) 5.1 % BASO % (test code = 706-2) 0.5 % GRAN MAT x10^3(ANC) (test code = 1153844819) 5.08 10*3/uL 1.88-7.09 IMM GRAN x10^3 (test code = 7260310476) 0.05 10*3/uL 0.00-0.06 LYMPH x10^3 (test code = 731-0) 1.47 10*3/uL 1.32-3.29 MONO x10^3 (test code = 742-7) 0.39 10*3/uL 0.33-0.92 EOS x10^3 (test code = 711-2) 0.38 10*3/uL 0.03-0.39 BASO x10^3 (test code = 704-7) 0.04 10*3/uL 0.01-0.07 Lab Interpretation (test code = 61120-3) Abnormal [facility] WITH [id number] 17:18:52* Test Item Value Reference Range Interpretation [...] g/dL 31.6-35.1 L RDW-SD (test code = 03037-1) 46.2 fL 39.0-49.9 RDW-CV (test code = 788-0) 17.9 % 12.0-15.5 H PLT (test code = 777-3) 304 See_Comment [Automated messa ge] The system which generated this result transmitted reference range: 166 - 358 10*3/?L. The reference range was not used to interpret this result as normal/abnormal. MPV (test code = 73860-7) 11.0 fL 9.5-12.9 NRBC/100 WBC (test code = 1879773143) 0.0 See_Comment [Automated [employer] ssage] The system which generated this result transmitted reference range: 0.0 - 10.0 /100 WBCs. The reference range was not used to interpret this result as normal/abnormal. NRBC x10^3 (test code = 0080359204) See_Comment [Automated messa ge] The system which generated this result transmitted reference range: 10*3/?L. The reference range was not used to interpret this result as normal/abnormal. GRAN MAT (NEUT) % (test code = 770-8) 68.6 % IMM GRAN % (test code = 5816640379) 0.70 % LYMPH % (test code = 736-9) 19.8 % MONO % (test code = 5905-5) 5.3 % EOS % (test code = 713-8) 5.1 % BASO % (test code = 706-2) 0.5 % GRAN MAT x10^3(ANC) (test code = 1126675720) 5.08 10*3/uL 1.88-7.09 IMM GRAN x10^3 (test code = 6729932225) 0.05 10*3/uL 0.00-0.06 LYMPH x10^3 (test code = 731-0) 1.47 10*3/uL 1.32-3.29 MONO x10^3 (test code = 742-7) 0.39 10*3/uL 0.33-0.92 EOS x10^3 (test code = 711-2) 0.38 10*3/uL 0.03-0.39 BASO x10^3 (test code = 704-7) 0.04 10*3/uL 0.01-0.07 Lab Interpretation (test code = 82488-2) Abnormal [facility] WITH [id number] 17:18:52* Test Item Value Reference Range Interpretation Comme nts WBC (test code = 6690-2) 7.41 See_Comment [Automated [employer]] The system which generated this result transmitted reference range: 4.30 - 11.10 10*3/?L. The reference range was not used to interpret this result as normal/abnormal. RBC (test code = 789-8) 4.20 See_Comment [Automated [employer]] The system which generated this result transmitted [...] g/dL 31.6-35.1 L RDW-SD (test code = 33589-4) 46.2 fL 39.0-49.9 RDW-CV (test code = 788-0) 17.9 % 12.0-15.5 H PLT (test code = 777-3) 304 See_Comment [Automated messa ge] The system which generated this result transmitted reference range: 166 - 358 10*3/?L. The reference range was not used to interpret this result as normal/abnormal. MPV (test code = 32292-6) 11.0 fL 9.5-12.9 NRBC/100 WBC (test code = 0298467320) 0.0 See_Comment [Automated me ssage] The system which generated this result transmitted reference range: 0.0 - 10.0 /100 WBCs. The reference range was not used to interpret this result as normal/abnormal. NRBC x10^3 (test code = 5140089360) See_Comment [Automated messa ge] The system which generated this result transmitted reference range: 10*3/?L. The reference range was not used to interpret this result as normal/abnormal. GRAN MAT (NEUT) % (test code = 770-8) 68.6 % IMM GRAN % (test code = 5480546444) 0.70 % LYMPH % (test code = 736-9) 19.8 % MONO % (test code = 5905-5) 5.3 % EOS % (test code = 713-8) 5.1 % BASO % (test code = 706-2) 0.5 % GRAN MAT x10^3(ANC) (test code = 1543114893) 5.08 10*3/uL 1.88-7.09 IMM GRAN x10^3 (test code = 1621444427) 0.05 10*3/uL 0.00-0.06 LYMPH x10^3 (test code = 731-0) 1.47 10*3/uL 1.32-3.29 MONO x10^3 (test code = 742-7) 0.39 10*3/uL 0.33-0.92 EOS x10^3 (test code = 711-2) 0.38 10*3/uL 0.03-0.39 BASO x10^3 (test code = 704-7) 0.04 10*3/uL 0.01-0.07 Lab Interpretation (test code = 79014-6) Abnormal [facility] WITH [id number] 17:18:52* Test Item Value Reference Range Interpretation [...] g/dL 31.6-35.1 L RDW-SD (test code = 85716-4) 46.2 fL 39.0-49.9 RDW-CV (test code = 788-0) 17.9 % 12.0-15.5 H PLT (test code = 777-3) 304 See_Comment [Automated messa ge] The system which generated this result transmitted reference range: 166 - 358 10*3/?L. The reference range was not used to interpret this result as normal/abnormal. MPV (test code = 01423-9) 11.0 fL 9.5-12.9 NRBC/100 WBC (test code = 1381019505) 0.0 See_Comment [Automated [employer] ssage] The system which generated this result transmitted reference range: 0.0 - 10.0 /100 WBCs. The reference range was not used to interpret this result as normal/abnormal. NRBC x10^3 (test code = 4841328553) See_Comment [Automated [employer]] The system which generated this result transmitted reference range: 10*3/?L. The reference range was not used to interpret this result as normal/abnormal. GRAN MAT (NEUT) % (test code = 770-8) 68.6 % IMM GRAN % (test code = 1169485457) 0.70 % LYMPH % (test code = 736-9) 19.8 % MONO % (test code = 5905-5) 5.3 % EOS % (test code = 713-8) 5.1 % BASO % (test code = 706-2) 0.5 % GRAN MAT x10^3(ANC) (test code = 2933409626) 5.08 10*3/uL 1.88-7.09 IMM GRAN x10^3 (test code = 1271832264) 0.05 10*3/uL 0.00-0.06 LYMPH x10^3 (test code = 731-0) 1.47 10*3/uL 1.32-3.29 MONO x10^3 (test code = 742-7) 0.39 10*3/uL 0.33-0.92 EOS x10^3 (test code = 711-2) 0.38 10*3/uL 0.03-0.39 BASO x10^3 (test code = 704-7) 0.04 10*3/uL 0.01-0.07 Lab Interpretation (test code = 98422-1) Abnormal [facility] WITH [id number] 17:18:52* Test Item Value Reference Range Interpretation Comme nts WBC (test code = 6690-2) 7.41 See_Comment [Automated [employer]] The system which generated this result transmitted reference range: 4.30 - 11.10 10*3/?L. The reference range was not used to interpret this result as normal/abnormal. RBC (test code = 789-8) 4.20 See_Comment [Automated [employer]] The system which generated this result [...] g/dL 31.6-35.1 L RDW-SD (test code = 75329-4) 46.2 fL 39.0-49.9 RDW-CV (test code = 788-0) 17.9 % 12.0-15.5 H PLT (test code = 777-3) 304 See_Comment [Automated [employer]] The system which generated this result transmitted reference range: 166 - 358 10*3/?L. The reference range was not used to interpret this result as normal/abnormal. MPV (test code = 75096-1) 11.0 fL 9.5-12.9 NRBC/100 WBC (test code = 4281576056) 0.0 See_Comment [Automated [employer] ssage] The system which generated this result transmitted reference range: 0.0 - 10.0 /100 WBCs. The reference range was not used to interpret this result as normal/abnormal. NRBC x10^3 (test code = 7542772105) See_Comment [Automated [employer] ge] The system which generated this result transmitted reference range: 10*3/?L. The reference range was not used to interpret this result as normal/abnormal. GRAN MAT (NEUT) % (test code = 770-8) 68.6 % IMM GRAN % (test code = 9118322022) 0.70 % LYMPH % (test code = 736-9) 19.8 % MONO % (test code = 5905-5) 5.3 % EOS % (test code = 713-8) 5.1 % BASO % (test code = 706-2) 0.5 % GRAN MAT x10^3(ANC) (test code = 4550700538) 5.08 10*3/uL 1.88-7.09 IMM GRAN x10^3 (test code = 2439434176) 0.05 10*3/uL 0.00-0.06 LYMPH x10^3 (test code = 731-0) 1.47 10*3/uL 1.32-3.29 MONO x10^3 (test code = 742-7) 0.39 10*3/uL 0.33-0.92 EOS x10^3 (test code = 711-2) 0.38 10*3/uL 0.03-0.39 BASO x10^3 (test code = 704-7) 0.04 10*3/uL 0.01-0.07 Lab Interpretation (test code = 63876-3) Abnormal [facility] WITH [id number] 17:18:52* Test Item Value Reference Range Interpretation Comme nts WBC (test code = 6690-2) 7.41 See_Comment [Automated [employer]] The system which generated this result transmitted reference range: 4.30 - 11.10 10*3/?L. The reference range was not used to interpret this result as normal/abnormal. RBC (test code = 789-8) 4.20 See_Comment [Automated [employer]] The system which generated this result transmitted [...] g/dL 31.6-35.1 L RDW-SD (test code = 21366-8) 46.2 fL 39.0-49.9 RDW-CV (test code = 788-0) 17.9 % 12.0-15.5 H PLT (test code = 777-3) 304 See_Comment [Automated [employer] ge] The system which generated this result transmitted reference range: 166 - 358 10*3/?L. The reference range was not used to interpret this result as normal/abnormal. MPV (test code = 78752-3) 11.0 fL 9.5-12.9 NRBC/100 WBC (test code = 8675257801) 0.0 See_Comment [Automated [employer] ssage] The system which generated this result transmitted reference range: 0.0 - 10.0 /100 WBCs. The reference range was not used to interpret this result as normal/abnormal. NRBC x10^3 (test code = 5584360360) See_Comment [Automated messa ge] The system which generated this result transmitted reference range: 10*3/?L. The reference range was not used to interpret this result as normal/abnormal. GRAN MAT (NEUT) % (test code = 770-8) 68.6 % IMM GRAN % (test code = 6980349920) 0.70 % LYMPH % (test code = 736-9) 19.8 % MONO % (test code = 5905-5) 5.3 % EOS % (test code = 713-8) 5.1 % BASO % (test code = 706-2) 0.5 % GRAN MAT x10^3(ANC) (test code = 2036549033) 5.08 10*3/uL 1.88-7.09 IMM GRAN x10^3 (test code = 8438465659) 0.05 10*3/uL 0.00-0.06 LYMPH x10^3 (test code = 731-0) 1.47 10*3/uL 1.32-3.29 MONO x10^3 (test code = 742-7) 0.39 10*3/uL 0.33-0.92 EOS x10^3 (test code = 711-2) 0.38 10*3/uL 0.03-0.39 BASO x10^3 (test code = 704-7) 0.04 10*3/uL 0.01-0.07 Lab Interpretation (test code = 62395-9) Abnormal [facility] WITH [id number] 17:18:52* Test Item Value Reference Range Interpretation [...] g/dL 31.6-35.1 L RDW-SD (test code = 16004-8) 46.2 fL 39.0-49.9 RDW-CV (test code = 788-0) 17.9 % 12.0-15.5 H PLT (test code = 777-3) 304 See_Comment [Automated messa ge] The system which generated this result transmitted reference range: 166 - 358 10*3/?L. The reference range was not used to interpret this result as normal/abnormal. MPV (test code = 92502-4) 11.0 fL 9.5-12.9 NRBC/100 WBC (test code = 6039124014) 0.0 See_Comment [Automated [employer] ssage] The system which generated this result transmitted reference range: 0.0 - 10.0 /100 WBCs. The reference range was not used to interpret this result as normal/abnormal. NRBC x10^3 (test code = 3033590640) See_Comment [Automated messa ge] The system which generated this result transmitted reference range: 10*3/?L. The reference range was not used to interpret this result as normal/abnormal. GRAN MAT (NEUT) % (test code = 770-8) 68.6 % IMM GRAN % (test code = 5255615132) 0.70 % LYMPH % (test code = 736-9) 19.8 % MONO % (test code = 5905-5) 5.3 % EOS % (test code = 713-8) 5.1 % BASO % (test code = 706-2) 0.5 % GRAN MAT x10^3(ANC) (test code = 5897528940) 5.08 10*3/uL 1.88-7.09 IMM GRAN x10^3 (test code = 3474281437) 0.05 10*3/uL 0.00-0.06 LYMPH x10^3 (test code = 731-0) 1.47 10*3/uL 1.32-3.29 MONO x10^3 (test code = 742-7) 0.39 10*3/uL 0.33-0.92 EOS x10^3 (test code = 711-2) 0.38 10*3/uL 0.03-0.39 BASO x10^3 (test code = 704-7) 0.04 10*3/uL 0.01-0.07 Lab Interpretation (test code = 38889-4) Abnormal [facility] WITH [id number] 17:18:52* Test Item Value Reference Range Interpretation [...] g/dL 31.6-35.1 L RDW-SD (test code = 64266-7) 46.2 fL 39.0-49.9 RDW-CV (test code = 788-0) 17.9 % 12.0-15.5 H PLT (test code = 777-3) 304 See_Comment [Automated [employer]] The system which generated this result transmitted reference range: 166 - 358 10*3/?L. The reference range was not used to interpret this result as normal/abnormal. MPV (test code = 41165-6) 11.0 fL 9.5-12.9 NRBC/100 WBC (test code = 2042321328) 0.0 See_Comment [Automated [employer] ssage] The system which generated this result transmitted reference range: 0.0 - 10.0 /100 WBCs. The reference range was not used to interpret this result as normal/abnormal. NRBC x10^3 (test code = 0498506648) See_Comment [Automated [employer]] The system which generated this result transmitted reference range: 10*3/?L. The reference range was not used to interpret this result as normal/abnormal. GRAN MAT (NEUT) % (test code = 770-8) 68.6 % IMM GRAN % (test code = 4670334007) 0.70 % LYMPH % (test code = 736-9) 19.8 % MONO % (test code = 5905-5) 5.3 % EOS % (test code = 713-8) 5.1 % BASO % (test code = 706-2) 0.5 % GRAN MAT x10^3(ANC) (test code = 3031379473) 5.08 10*3/uL 1.88-7.09 IMM GRAN x10^3 (test code = 9131232025) 0.05 10*3/uL 0.00-0.06 LYMPH x10^3 (test code = 731-0) 1.47 10*3/uL 1.32-3.29 MONO x10^3 (test code = 742-7) 0.39 10*3/uL 0.33-0.92 EOS x10^3 (test code = 711-2) 0.38 10*3/uL 0.03-0.39 BASO x10^3 (test code = 704-7) 0.04 10*3/uL 0.01-0.07 Lab Interpretation (test code = 12058-0) Abnormal [facility] WITH [id number] 17:18:52* Test Item Value Reference Range Interpretation [...] g/dL 31.6-35.1 L RDW-SD (test code = 88224-7) 46.2 fL 39.0-49.9 RDW-CV (test code = 788-0) 17.9 % 12.0-15.5 H PLT (test code = 777-3) 304 See_Comment [Automated messa ge] The system which generated this result transmitted reference range: 166 - 358 10*3/?L. The reference range was not used to interpret this result as normal/abnormal. MPV (test code = 97449-0) 11.0 fL 9.5-12.9 NRBC/100 WBC (test code = 0362214691) 0.0 See_Comment [Automated [employer] ssage] The system which generated this result transmitted reference range: 0.0 - 10.0 /100 WBCs. The reference range was not used to interpret this result as normal/abnormal. NRBC x10^3 (test code = 9232178375) See_Comment [Automated messa ge] The system which generated this result transmitted reference range: 10*3/?L. The reference range was not used to interpret this result as normal/abnormal. GRAN MAT (NEUT) % (test code = 770-8) 68.6 % IMM GRAN % (test code = 4795440198) 0.70 % LYMPH % (test code = 736-9) 19.8 % MONO % (test code = 5905-5) 5.3 % EOS % (test code = 713-8) 5.1 % BASO % (test code = 706-2) 0.5 % GRAN MAT x10^3(ANC) (test code = 3200549188) 5.08 10*3/uL 1.88-7.09 IMM GRAN x10^3 (test code = 5561419337) 0.05 10*3/uL 0.00-0.06 LYMPH x10^3 (test code = 731-0) 1.47 10*3/uL 1.32-3.29 MONO x10^3 (test code = 742-7) 0.39 10*3/uL 0.33-0.92 EOS x10^3 (test code = 711-2) 0.38 10*3/uL 0.03-0.39 BASO x10^3 (test code = 704-7) 0.04 10*3/uL 0.01-0.07 Lab Interpretation (test code = 34544-9) Abnormal [facility] WITH [id number] 17:18:52* Test Item Value Reference Range Interpretation Comme nts WBC (test code = 6690-2) 7.41 See_Comment [Automated [employer]] The system which generated this result transmitted reference range: 4.30 - 11.10 10*3/?L. The reference range was not used to interpret this result as normal/abnormal. RBC (test code = 789-8) 4.20 See_Comment [Automated [employer]] The system which generated this result [...] g/dL 31.6-35.1 L RDW-SD (test code = 02577-0) 46.2 fL 39.0-49.9 RDW-CV (test code = 788-0) 17.9 % 12.0-15.5 H PLT (test code = 777-3) 304 See_Comment [Automated messa ge] The system which generated this result transmitted reference range: 166 - 358 10*3/?L. The reference range was not used to interpret this result as normal/abnormal. MPV (test code = 97379-5) 11.0 fL 9.5-12.9 NRBC/100 WBC (test code = 7632224705) 0.0 See_Comment [Automated [employer] ssage] The system which generated this result transmitted reference range: 0.0 - 10.0 /100 WBCs. The reference range was not used to interpret this result as normal/abnormal. NRBC x10^3 (test code = 8490441476) See_Comment [Automated [employer]] The system which generated this result transmitted reference range: 10*3/?L. The reference range was not used to interpret this result as normal/abnormal. GRAN MAT (NEUT) % (test code = 770-8) 68.6 % IMM GRAN % (test code = 5115970795) 0.70 % LYMPH % (test code = 736-9) 19.8 % MONO % (test code = 5905-5) 5.3 % EOS % (test code = 713-8) 5.1 % BASO % (test code = 706-2) 0.5 % GRAN MAT x10^3(ANC) (test code = 0881219185) 5.08 10*3/uL 1.88-7.09 IMM GRAN x10^3 (test code = 0264711492) 0.05 10*3/uL 0.00-0.06 LYMPH x10^3 (test code = 731-0) 1.47 10*3/uL 1.32-3.29 MONO x10^3 (test code = 742-7) 0.39 10*3/uL 0.33-0.92 EOS x10^3 (test code = 711-2) 0.38 10*3/uL 0.03-0.39 BASO x10^3 (test code = 704-7) 0.04 10*3/uL 0.01-0.07 Lab Interpretation (test code = 73520-0) Abnormal [facility] [id number] 16:24:00* Test Item Value Reference Range Interpretation Comme nts POCT PREG (test code = 1605) Negative On board controls acceptable with C Line (test code = 3574) Yes POCT PREG LOT # (test code = 3575) [id number] POCT PREG TEST DATE ( test code = 3576) 04-11-2024 Lab Interpretation (test cod e = 62413-7) Normal [facility] [id number] 16:24:00* Test Item Value Reference Range Interpretation Comme nts POCT PREG (test code = 1605) Negative On board controls acceptable with C Line (test code = 3574) Yes POCT PREG LOT # (test code = 3575) [id number] POCT PREG TEST DATE ( test code = 3576) 04-11-2024 Lab Interpretation (test cod e = 72344-0) Normal [facility] [id number] 16:24:00* Test Item Value Reference Range Interpretation Comme nts POCT PREG (test code = 1605) Negative On board controls acceptable with C Line (test code = 3574) Yes POCT PREG LOT # (test code = 3575) [id number] POCT PREG TEST DATE ( test code = 3576) 04-11-2024 Lab Interpretation (test cod e = 97827-0) Normal [facility] [id number] 16:24:00* Test Item Value Reference Range Interpretation Comme nts POCT PREG (test code = 1605) Negative On board controls acceptable with C Line (test code = 3574) Yes POCT PREG LOT # (test code = 3575) [id number] POCT PREG TEST DATE ( test code = 3576) 04-11-2024 Lab Interpretation (test cod e = 93360-9) [facility] [id number] 16:24:00* Test Item Value Reference Range Interpretation Comme nts POCT PREG (test code = 1605) Negative On board controls acceptable with C Line (test code = 3574) Yes POCT PREG LOT # (test code = 3575) [id number] POCT PREG TEST DATE ( test code = 3576) 04-11-2024 Lab Interpretation (test cod e = 78123-6) [facility] [id number] 16:24:00* Test Item Value Reference Range Interpretation Comme nts POCT PREG (test code = 1605) Negative On board controls acceptable with C Line (test code = 3574) Yes POCT PREG LOT # (test code = 3575) [id number] POCT PREG TEST DATE ( test code = 3576) 04-11-2024 Lab Interpretation (test cod e = 66594-7) [facility] [id number] 16:24:00* Test Item Value Reference Range Interpretation Comme nts POCT PREG (test code = 1605) Negative On board controls acceptable with C Line (test code = 3574) Yes POCT PREG LOT # (test code = 3575) [id number] POCT PREG TEST DATE ( test code = 3576) 04-11-2024 Lab Interpretation (test cod e = 37477-3) [facility] [id number] 16:24:00* Test Item Value Reference Range Interpretation Comme nts POCT PREG (test code = 1605) Negative On board controls acceptable with C Line (test code = 3574) Yes POCT PREG LOT # (test code = 3575) [id number] POCT PREG TEST DATE ( test code = 3576) 04-11-2024 Lab Interpretation (test cod e = 73140-4) [facility] [id number] 16:24:00* Test Item Value Reference Range Interpretation Comme nts POCT PREG (test code = 1605) Negative On board controls acceptable with C Line (test code = 3574) Yes POCT PREG LOT # (test code = 3575) [id number] POCT PREG TEST DATE ( test code = 3576) 04-11-2024 Lab Interpretation (test cod e = 57715-3) [facility] [id number] 16:24:00* Test Item Value Reference Range Interpretation Comme nts POCT PREG (test code = 1605) Negative On board controls acceptable with C Line (test code = 3574) Yes POCT PREG LOT # (test code = 3575) [id number] POCT PREG TEST DATE ( test code = 3576) 04-11-2024 Lab Interpretation (test cod e = 11885-8) [facility] [id number] 16:24:00* Test Item Value Reference Range Interpretation Comme nts POCT PREG (test code = 1605) Negative On board controls acceptable with C Line (test code = 3574) Yes POCT PREG LOT # (test code = 3575) [id number] POCT PREG TEST DATE ( test code = 3576) 04-11-2024 Lab Interpretation (test cod e = 82584-3) [facility] [id number] 16:24:00* Test Item Value Reference Range Interpretation Comme nts POCT PREG (test code = 1605) Negative On board controls acceptable with C Line (test code = 3574) Yes POCT PREG LOT # (test code = 3575) [id number] POCT PREG TEST DATE ( test code = 3576) 04-11-2024 Lab Interpretation (test cod e = 82554-5) [facility] [id number] 16:24:00* Test Item Value Reference Range Interpretation Comme nts POCT PREG (test code = 1605) Negative On board controls acceptable with C Line (test code = 3574) Yes POCT PREG LOT # (test code = 3575) [id number] POCT PREG TEST DATE ( test code = 3576) 04-11-2024 Lab Interpretation (test cod e = 62999-3) [facility] [id number] 16:24:00* Test Item Value Reference Range Interpretation Comme nts POCT PREG (test code = 1605) Negative On board controls acceptable with C Line (test code = 3574) Yes POCT PREG LOT # (test code = 3575) [id number] POCT PREG TEST DATE ( test code = 3576) 04-11-2024 Lab Interpretation (test cod e = 27450-4) [facility] [id number] 16:24:00* Test Item Value Reference Range Interpretation Comme nts POCT PREG (test code = 1605) Negative On board controls acceptable with C Line (test code = 3574) Yes POCT PREG LOT # (test code = 3575) [id number] POCT PREG TEST DATE ( test code = 3576) 04-11-2024 Lab Interpretation (test cod e = 45190-7) [facility] [id number] 16:24:00* Test Item Value Reference Range Interpretation Comme nts POCT PREG (test code = 1605) Negative On board controls acceptable with C Line (test code = 3574) Yes POCT PREG LOT # (test code = 3575) [id number] POCT PREG TEST DATE ( test code = 3576) 04-11-2024 Lab Interpretation (test cod e = 69692-2) [facility] [id number] 16:24:00* Test Item Value Reference Range Interpretation Comme nts POCT PREG (test code = 1605) Negative On board controls acceptable with C Line (test code = 3574) Yes POCT PREG LOT # (test code = 3575) [id number] POCT PREG TEST DATE ( test code = 3576) 04-11-2024 Lab Interpretation (test cod e = 20968-0) [facility] [id number] 16:24:00* Test Item Value Reference Range Interpretation Comme nts POCT PREG (test code = 1605) Negative On board controls acceptable with C Line (test code = 3574) Yes POCT PREG LOT # (test code = 3575) [id number] POCT PREG TEST DATE ( test code = 3576) 04-11-2024 Lab Interpretation (test cod e = 83257-1) [facility] CELIAC SCREEN [id number] 19:09:14 * Test Item Value Reference Range Interpretation Comme nts Tissue Transglutaminase (tTG) Ab, IgA Interpretation (test code = 76962-7) Negative Negative Deamidated Gliadin Peptide (DGP) Ab, IgA Interpretation (test code = 92217-7) Negative Negative Tissue Transglutaminase (tTG) Ab, IgA (test code = 9961000113) <=7.0 Deamidated Gliadin Peptide (DGP) Ab, IgA (test code = 4100106582) 0.4 U/mL <=7.0 ZAINAB (test code = ZAINAB) < 7 U/mL ? Negative7 - 10 U/mL ?Equivocal> 10 U/mL ?Positive In case of equivocal results, we recommend to retest the patient after 8 -12 weeks. Lab Interpretation (test code = 23721-0) [facility] ONLY CELIAC SCREEN [id number] 19:09:14 * Test Item Value Reference Range Interpretation Comme nts Tissue Transglutaminase (tTG) Ab, IgA Interpretation (test code = 65483-3) Negative Negative Deamidated Gliadin Peptide (DGP) Ab, IgA Interpretation (test code = 53706-1) Negative Negative Tissue Transglutaminase (tTG) Ab, IgA (test code = 1708814043) <=7.0 Deamidated Gliadin Peptide (DGP) Ab, IgA (test code = 4296118974) 0.4 U/mL <=7.0 ZAINAB (test code = ZAINAB) < 7 U/mL ? Negative7 - 10 U/mL ?Equivocal> 10 U/mL ?Positive In case of equivocal results, we recommend to retest the patient after 8 -12 weeks. Lab Interpretation (test code = 36655-7) [facility] ONLY CELIAC SCREEN [id number] 19:09:14 * Test Item Value Reference Range Interpretation Comme nts Tissue Transglutaminase (tTG) Ab, IgA Interpretation (test code = 31876-5) Negative Negative Deamidated Gliadin Peptide (DGP) Ab, IgA Interpretation (test code = 05116-0) Negative Negative Tissue Transglutaminase (tTG) Ab, IgA (test code = 2876829019) <=7.0 Deamidated Gliadin Peptide (DGP) Ab, IgA (test code = 5929426681) 0.4 U/mL <=7.0 ZAINAB (test code = ZAINAB) < 7 U/mL ? Negative7 - 10 U/mL ?Equivocal> 10 U/mL ?Positive In case of equivocal results, we recommend to retest the patient after 8 -12 weeks. Lab Interpretation (test code = 64761-4) [facility] ONLY CELIAC SCREEN [id number] 19:09:14 * Test Item Value Reference Range Interpretation Comme nts Tissue Transglutaminase (tTG) Ab, IgA Interpretation (test code = 65262-7) Negative Negative Deamidated Gliadin Peptide (DGP) Ab, IgA Interpretation (test code = 99815-5) Negative Negative Tissue Transglutaminase (tTG) Ab, IgA (test code = 5900677127) <=7.0 Deamidated Gliadin Peptide (DGP) Ab, IgA (test code = 3846372520) 0.4 U/mL <=7.0 ZAINAB (test code = ZAINAB) < 7 U/mL ? Negative7 - 10 U/mL ?Equivocal> 10 U/mL ?Positive In case of equivocal results, we recommend to retest the patient after 8 -12 weeks. Lab Interpretation (test code = 39783-6) [facility] ONLY CELIAC SCREEN [id number] 19:09:14 * Test Item Value Reference Range Interpretation Comme nts Tissue Transglutaminase (tTG) Ab, IgA Interpretation (test code = 92239-1) Negative Negative Deamidated Gliadin Peptide (DGP) Ab, IgA Interpretation (test code = 13543-7) Negative Negative Tissue Transglutaminase (tTG) Ab, IgA (test code = 9497826955) <=7.0 Deamidated Gliadin Peptide (DGP) Ab, IgA (test code = 1876661981) 0.4 U/mL <=7.0 ZAINAB (test code = ZAINAB) < 7 U/mL ? Negative7 - 10 U/mL ?Equivocal> 10 U/mL ?Positive In case of equivocal results, we recommend to retest the patient after 8 -12 weeks. Lab Interpretation (test code = 95847-3) [facility] ONLY CELIAC SCREEN [id number] 19:09:14 * Test Item Value Reference Range Interpretation Comme nts Tissue Transglutaminase (tTG) Ab, IgA Interpretation (test code = 06296-8) Negative Negative Deamidated Gliadin Peptide (DGP) Ab, IgA Interpretation (test code = 66849-2) Negative Negative Tissue Transglutaminase (tTG) Ab, IgA (test code = 6987053120) <=7.0 Deamidated Gliadin Peptide (DGP) Ab, IgA (test code = 2771886669) 0.4 U/mL <=7.0 ZAINAB (test code = AZINAB) < 7 U/mL ? Negative7 - 10 U/mL ?Equivocal> 10 U/mL ?Positive In case of equivocal results, we recommend to retest the patient after 8 -12 weeks. Lab Interpretation (test code = 71962-7) [facility] ONLY CELIAC SCREEN [id number] 19:09:14 * Test Item Value Reference Range Interpretation Comme nts Tissue Transglutaminase (tTG) Ab, IgA Interpretation (test code = 61382-6) Negative Negative Deamidated Gliadin Peptide (DGP) Ab, IgA Interpretation (test code = 28353-1) Negative Negative Tissue Transglutaminase (tTG) Ab, IgA (test code = 4880084762) <=7.0 Deamidated Gliadin Peptide (DGP) Ab, IgA (test code = 3228291351) 0.4 U/mL <=7.0 ZAINAB (test code = ZAINAB) < 7 U/mL ? Negative7 - 10 U/mL ?Equivocal> 10 U/mL ?Positive In case of equivocal results, we recommend to retest the patient after 8 -12 weeks. Lab Interpretation (test code = 75432-9) [facility] ONLY CELIAC SCREEN [id number] 19:09:14 * Test Item Value Reference Range Interpretation Comme nts Tissue Transglutaminase (tTG) Ab, IgA Interpretation (test code = 89699-4) Negative Negative Deamidated Gliadin Peptide (DGP) Ab, IgA Interpretation (test code = 50826-7) Negative Negative Tissue Transglutaminase (tTG) Ab, IgA (test code = 2641980525) <=7.0 Deamidated Gliadin Peptide (DGP) Ab, IgA (test code = 0453080069) 0.4 U/mL <=7.0 ZAINAB (test code = ZAINAB) < 7 U/mL ? Negative7 - 10 U/mL ?Equivocal> 10 U/mL ?Positive In case of equivocal results, we recommend to retest the patient after 8 -12 weeks. Lab Interpretation (test code = 40162-8) [facility] ONLY CELIAC SCREEN [id number] 19:09:14 * Test Item Value Reference Range Interpretation Comme nts Tissue Transglutaminase (tTG) Ab, IgA Interpretation (test code = 19783-0) Negative Negative Deamidated Gliadin Peptide (DGP) Ab, IgA Interpretation (test code = 76535-7) Negative Negative Tissue Transglutaminase (tTG) Ab, IgA (test code = 8039576729) <=7.0 Deamidated Gliadin Peptide (DGP) Ab, IgA (test code = 2136446924) 0.4 U/mL <=7.0 ZAINAB (test code = ZAINAB) < 7 U/mL ? Negative7 - 10 U/mL ?Equivocal> 10 U/mL ?Positive In case of equivocal results, we recommend to retest the patient after 8 -12 weeks. Lab Interpretation (test code = 37360-5) [facility] ONLY CELIAC SCREEN [id number] 19:09:14 * Test Item Value Reference Range Interpretation Comme nts Tissue Transglutaminase (tTG) Ab, IgA Interpretation (test code = 22729-1) Negative Negative Deamidated Gliadin Peptide (DGP) Ab, IgA Interpretation (test code = 01973-5) Negative Negative Tissue Transglutaminase (tTG) Ab, IgA (test code = 3755917508) <=7.0 Deamidated Gliadin Peptide (DGP) Ab, IgA (test code = 7197279374) 0.4 U/mL <=7.0 ZAINAB (test code = ZAINAB) < 7 U/mL ? Negative7 - 10 U/mL ?Equivocal> 10 U/mL ?Positive In case of equivocal results, we recommend to retest the patient after 8 -12 weeks. Lab Interpretation (test code = 19330-2) [facility] ONLY CELIAC SCREEN [id number] 19:09:14 * Test Item Value Reference Range Interpretation Comme nts Tissue Transglutaminase (tTG) Ab, IgA Interpretation (test code = 53755-4) Negative Negative Deamidated Gliadin Peptide (DGP) Ab, IgA Interpretation (test code = 93035-2) Negative Negative Tissue Transglutaminase (tTG) Ab, IgA (test code = 5236834956) <=7.0 Deamidated Gliadin Peptide (DGP) Ab, IgA (test code = 0173314689) 0.4 U/mL <=7.0 ZAINAB (test code = ZAINAB) < 7 U/mL ? Negative7 - 10 U/mL ?Equivocal> 10 U/mL ?Positive In case of equivocal results, we recommend to retest the patient after 8 -12 weeks. Lab Interpretation (test code = 25708-8) [facility] ONLY CELIAC SCREEN [id number] 19:09:14 * Test Item Value Reference Range Interpretation Comme nts Tissue Transglutaminase (tTG) Ab, IgA Interpretation (test code = 26734-0) Negative Negative Deamidated Gliadin Peptide (DGP) Ab, IgA Interpretation (test code = 37890-6) Negative Negative Tissue Transglutaminase (tTG) Ab, IgA (test code = 6164715474) <=7.0 Deamidated Gliadin Peptide (DGP) Ab, IgA (test code = 2717611210) 0.4 U/mL <=7.0 ZAINAB (test code = ZAINAB) < 7 U/mL ? Negative7 - 10 U/mL ?Equivocal> 10 U/mL ?Positive In case of equivocal results, we recommend to retest the patient after 8 -12 weeks. Lab Interpretation (test code = 33452-3) Normal [facility] [id number] 20:24:44* Test Item Value Reference Range Interpretation Comme nts Total IgA (test code = 6025151315) 78.3 U/mL 70-312 Lab Interpretation (test cod e = 38259-9) Normal [facility] [id number] 20:24:44* Test Item Value Reference Range Interpretation Comme nts Total IgA (test code = 6330855817) 78.3 U/mL 70-312 Lab Interpretation (test cod e = 92935-2) [facility] [id number] 20:24:44* Test Item Value Reference Range Interpretation Comme nts Total IgA (test code = 2056965272) 78.3 U/mL 70-312 Lab Interpretation (test cod e = 90523-6) Normal [facility] [id number] 20:24:44* Test Item Value Reference Range Interpretation Comme nts Total IgA (test code = 9823458411) 78.3 U/mL 70-312 Lab Interpretation (test cod e = 76512-7) Normal [facility] [id number] 20:24:44* Test Item Value Reference Range Interpretation Comme nts Total IgA (test code = 4558551442) 78.3 U/mL 70-312 Lab Interpretation (test cod e = 18850-9) [facility] [id number] 20:24:44* Test Item Value Reference Range Interpretation Comme nts Total IgA (test code = 0532977171) 78.3 U/mL 70-312 Lab Interpretation (test cod e = 37097-1) Normal [facility] [id number] 20:24:44* Test Item Value Reference Range Interpretation Comme nts Total IgA (test code = 1737558978) 78.3 U/mL 70-312 Lab Interpretation (test cod e = 15455-3) [facility] [id number] 20:24:44* Test Item Value Reference Range Interpretation Comme nts Total IgA (test code = 4258637252) 78.3 U/mL 70-312 Lab Interpretation (test cod e = 85123-7) Normal [facility] [id number] 20:24:44* Test Item Value Reference Range Interpretation Comme nts Total IgA (test code = 6964118259) 78.3 U/mL 70-312 Lab Interpretation (test cod e = 21017-6) Normal [facility] [id number] 20:24:44* Test Item Value Reference Range Interpretation Comme nts Total IgA (test code = 1538815154) 78.3 U/mL 70-312 Lab Interpretation (test cod e = 12220-3) Normal [facility] [id number] 20:24:44* Test Item Value Reference Range Interpretation Comme nts Total IgA (test code = 2075248219) 78.3 U/mL 70-312 Lab Interpretation (test cod e = 33450-8) Normal [facility] [id number] 20:24:44* Test Item Value Reference Range Interpretation Comme nts Total IgA (test code = 3682012171) 78.3 U/mL 70-312 Lab Interpretation (test cod e = 73425-1) Normal [facility] [id number] 17:30:19* Test Item Value Reference Range Interpretation Comme nts FERRITIN (test code = 1565539794) 4.8 ng/mL 6.0-137.0 L ZAINAB (test code = ZAINAB) Biotin has been reported to cause a negative bias, interpret results relative to patient's use of biotin. Lab Interpretation (test code = 12817-1) Abnormal [facility] [id number] 17:30:19* Test Item Value Reference Range Interpretation Comme nts FERRITIN (test code = 0489913245) 4.8 ng/mL 6.0-137.0 L ZAINAB (test code = ZAINAB) Biotin has been reported to cause a negative bias, interpret results relative to patient's use of biotin. Lab Interpretation (test code = 66759-3) Abnormal [facility] [id number] 17:30:19* Test Item Value Reference Range Interpretation Comme nts FERRITIN (test code = 6114930282) 4.8 ng/mL 6.0-137.0 L ZAINAB (test code = ZAINAB) Biotin has been reported to cause a negative bias, interpret results relative to patient's use of biotin. Lab Interpretation (test code = 53494-1) Abnormal [facility] [id number] 17:30:19* Test Item Value Reference Range Interpretation Comme nts FERRITIN (test code = 1935712554) 4.8 ng/mL 6.0-137.0 L ZAINAB (test code = ZAINAB) Biotin has been reported to cause a negative bias, interpret results relative to patient's use of biotin. Lab Interpretation (test code = 27484-6) Abnormal [facility] [id number] 17:30:19* Test Item Value Reference Range Interpretation Comme nts FERRITIN (test code = 5573320491) 4.8 ng/mL 6.0-137.0 L ZAINAB (test code = ZAINAB) Biotin has been reported to cause a negative bias, interpret results relative to patient's use of biotin. Lab Interpretation (test code = 19509-8) Abnormal [facility] [id number] 17:30:19* Test Item Value Reference Range Interpretation Comme nts FERRITIN (test code = 5215624998) 4.8 ng/mL 6.0-137.0 L ZAINAB (test code = ZAINAB) Biotin has been reported to cause a negative bias, interpret results relative to patient's use of biotin. Lab Interpretation (test code = 33405-8) Abnormal [facility] [id number] 17:30:19* Test Item Value Reference Range Interpretation Comme nts FERRITIN (test code = 6184618552) 4.8 ng/mL 6.0-137.0 L ZAINAB (test code = ZAINAB) Biotin has been reported to cause a negative bias, interpret results relative to patient's use of biotin. Lab Interpretation (test code = 48347-2) Abnormal [facility] [id number] 17:30:19* Test Item Value Reference Range Interpretation Comme nts FERRITIN (test code = 9921626525) 4.8 ng/mL 6.0-137.0 L ZAINAB (test code = ZAINAB) Biotin has been reported to cause a negative bias, interpret results relative to patient's use of biotin. Lab Interpretation (test code = 80197-5) Abnormal [facility] [id number] 17:30:19* Test Item Value Reference Range Interpretation Comme nts FERRITIN (test code = 5020274677) 4.8 ng/mL 6.0-137.0 L ZAINAB (test code = ZAINAB) Biotin has been reported to cause a negative bias, interpret results relative to patient's use of biotin. Lab Interpretation (test code = 70996-7) Abnormal [facility] [id number] 17:30:19* Test Item Value Reference Range Interpretation Comme nts FERRITIN (test code = 9012639736) 4.8 ng/mL 6.0-137.0 L ZAINAB (test code = ZAINAB) Biotin has been reported to cause a negative bias, interpret results relative to patient's use of biotin. Lab Interpretation (test code = 97535-1) Abnormal [facility] [id number] 17:30:19* Test Item Value Reference Range Interpretation Comme nts FERRITIN (test code = 6463239420) 4.8 ng/mL 6.0-137.0 L ZAINAB (test code = ZAINAB) Biotin has been reported to cause a negative bias, interpret results relative to patient's use of biotin. Lab Interpretation (test code = 64218-5) Abnormal [facility] [id number] 17:30:19* Test Item Value Reference Range Interpretation Comme nts FERRITIN (test code = 7244885231) 4.8 ng/mL 6.0-137.0 L ZAINAB (test code = ZAINAB) Biotin has been reported to cause a negative bias, interpret results relative to patient's use of biotin. Lab Interpretation (test code = 50886-0) Abnormal [facility] [id number] 17:03:34* Test Item Value Reference Range Interpretation Comme nts IRON (test code = 4955078365) 34 ug/dL 50-160 L TIBC (test code = 9943202955) 515 ug/dL 250-410 H % FE SAT (test code = 5939960480) 7 % 20-50 L Lab Interpretation (test cod e = 12813-4) Abnormal [facility] [id number] 17:03:34* Test Item Value Reference Range Interpretation Comme nts IRON (test code = 0956654285) 34 ug/dL 50-160 L TIBC (test code = 5773902749) 515 ug/dL 250-410 H % FE SAT (test code = 4530746857) 7 % 20-50 L Lab Interpretation (test cod e = 53517-6) Abnormal [facility] [id number] 17:03:34* Test Item Value Reference Range Interpretation Comme nts IRON (test code = 2873523859) 34 ug/dL 50-160 L TIBC (test code = 2390970199) 515 ug/dL 250-410 H % FE SAT (test code = 9699995537) 7 % 20-50 L Lab Interpretation (test cod e = 85090-7) Abnormal [facility]2023-09-07 17:03:34* Test Item Value Reference Range Interpretation Comme nts IRON (test code = 7861132448) 34 ug/dL 50-160 L TIBC (test code = 6539331440) 515 ug/dL 250-410 H % FE SAT (test code = 2841461797) 7 % 20-50 L Lab Interpretation (test cod e = 87903-1) Abnormal [facility]2023-09-07 17:03:34* Test Item Value Reference Range Interpretation Comme nts IRON (test code = 5178850758) 34 ug/dL 50-160 L TIBC (test code = 7643405689) 515 ug/dL 250-410 H % FE SAT (test code = 6734116137) 7 % 20-50 L Lab Interpretation (test cod e = 77201-9) Abnormal [facility]2023-09-07 17:03:34* Test Item Value Reference Range Interpretation Comme nts IRON (test code = 9974879672) 34 ug/dL 50-160 L TIBC (test code = 7216687283) 515 ug/dL 250-410 H % FE SAT (test code = 0565533089) 7 % 20-50 L Lab Interpretation (test cod e = 72696-7) Abnormal [facility]2023-09-07 17:03:34* Test Item Value Reference Range Interpretation Comme nts IRON (test code = 9550358603) 34 ug/dL 50-160 L TIBC (test code = 4037749562) 515 ug/dL 250-410 H % FE SAT (test code = 4277844877) 7 % 20-50 L Lab Interpretation (test cod e = 87073-2) Abnormal [facility] [id number] 17:03:34* Test Item Value Reference Range Interpretation Comme nts IRON (test code = 4280612346) 34 ug/dL 50-160 L TIBC (test code = 8842462146) 515 ug/dL 250-410 H % FE SAT (test code = 0150723088) 7 % 20-50 L Lab Interpretation (test cod e = 42189-1) Abnormal [facility] [id number] 17:03:34* Test Item Value Reference Range Interpretation Comme nts IRON (test code = 2308324722) 34 ug/dL 50-160 L TIBC (test code = 1365721420) 515 ug/dL 250-410 H % FE SAT (test code = 7487378563) 7 % 20-50 L Lab Interpretation (test cod e = 63877-9) Abnormal [facility] [id number] 17:03:34* Test Item Value Reference Range Interpretation Comme nts IRON (test code = 0170406293) 34 ug/dL 50-160 L TIBC (test code = 0058226924) 515 ug/dL 250-410 H % FE SAT (test code = 8218666709) 7 % 20-50 L Lab Interpretation (test cod e = 43669-4) Abnormal [facility] [id number] 17:03:34* Test Item Value Reference Range Interpretation Comme nts IRON (test code = 8875302166) 34 ug/dL 50-160 L TIBC (test code = 1405171544) 515 ug/dL 250-410 H % FE SAT (test code = 1182289437) 7 % 20-50 L Lab Interpretation (test cod e = 91095-4) Abnormal [facility] [id number] 17:03:34* Test Item Value Reference Range Interpretation Comme nts IRON (test code = 9433949024) 34 ug/dL 50-160 L TIBC (test code = 1339810487) 515 ug/dL 250-410 H % FE SAT (test code = 6772049995) 7 % 20-50 L Lab Interpretation (test cod e = 26912-6) Abnormal [facility]2023-08-24 19:48:06* Test Item Value Reference Range Interpretation Comme nts [place] (test code = 6042092278) 0.5 mmol/L 0.6-1.2 L ZAINAB (test code = ZAINAB) Toxic Range: ? Greater than 1.2 mmol/L Lab Interpretation (test code = 82718-1) Abnormal [facility]2023-08-24 19:48:06* Test Item Value Reference Range Interpretation Comme nts [place] (test code = 5392863016) 0.5 mmol/L 0.6-1.2 L ZAINAB (test code = ZAINAB) Toxic Range: ? Greater than 1.2 mmol/L Lab Interpretation (test code = 47071-5) Abnormal [facility]2023-08-24 19:48:06* Test Item Value Reference Range Interpretation Comme nts [place] (test code = 8838172355) 0.5 mmol/L 0.6-1.2 L ZAINAB (test code = ZAINAB) Toxic Range: ? Greater than 1.2 mmol/L Lab Interpretation (test code = 73207-6) Abnormal [facility]2023-08-24 19:48:06* Test Item Value Reference Range Interpretation Comme nts [place] (test code = 2556244740) 0.5 mmol/L 0.6-1.2 L ZAINAB (test code = ZAINAB) Toxic Range: ? Greater than 1.2 mmol/L Lab Interpretation (test code = 57237-8) Abnormal [facility]2023-08-24 19:48:06* Test Item Value Reference Range Interpretation Comme nts [place] (test code = 2362199148) 0.5 mmol/L 0.6-1.2 L ZAINAB (test code = ZAINAB) Toxic Range: ? Greater than 1.2 mmol/L Lab Interpretation (test code = 01425-2) Abnormal [facility]2023-08-24 19:48:06* Test Item Value Reference Range Interpretation Comme nts [place] (test code = 8851405263) 0.5 mmol/L 0.6-1.2 L ZAINAB (test code = ZAINAB) Toxic Range: ? Greater than 1.2 mmol/L Lab Interpretation (test code = 93992-3) Abnormal [facility]2023-08-24 19:48:06* Test Item Value Reference Range Interpretation Comme nts [place] (test code = 0687187986) 0.5 mmol/L 0.6-1.2 L ZAINAB (test code = ZAINAB) Toxic Range: ? Greater than 1.2 mmol/L Lab Interpretation (test code = 45074-9) Abnormal [facility]2023-08-24 19:48:06* Test Item Value Reference Range Interpretation Comme nts [place] (test code = 1565603535) 0.5 mmol/L 0.6-1.2 L ZAINAB (test code = ZAINAB) Toxic Range: ? Greater than 1.2 mmol/L Lab Interpretation (test code = 50764-7) Abnormal [facility]2023-08-24 19:48:06* Test Item Value Reference Range Interpretation Comme nts [place] (test code = 6436191007) 0.5 mmol/L 0.6-1.2 L ZAINAB (test code = ZAINAB) Toxic Range: ? Greater than 1.2 mmol/L Lab Interpretation (test code = 41869-5) Abnormal [facility]2023-08-24 19:48:06* Test Item Value Reference Range Interpretation Comme nts [place] (test code = 4661020918) 0.5 mmol/L 0.6-1.2 L ZAINAB (test code = ZAINAB) Toxic Range: ? Greater than 1.2 mmol/L Lab Interpretation (test code = 93363-2) Abnormal [facility]2023-08-24 19:48:06* Test Item Value Reference Range Interpretation Comme nts [place] (test code = 9588728490) 0.5 mmol/L 0.6-1.2 L ZAINAB (test code = ZAINAB) Toxic Range: ? Greater than 1.2 mmol/L Lab Interpretation (test code = 60233-4) Abnormal [facility]2023-08-24 19:48:06* Test Item Value Reference Range Interpretation Comme nts [place] (test code = 2331139937) 0.5 mmol/L 0.6-1.2 L ZAINAB (test code = ZAINAB) Toxic Range: ? Greater than 1.2 mmol/L Lab Interpretation (test code = 48479-8) Abnormal [facility]2023-08-24 19:48:06* Test Item Value Reference Range Interpretation Comme nts [place] (test code = 7197596907) 0.5 mmol/L 0.6-1.2 L ZAINAB (test code = ZAINAB) Toxic Range: ? Greater than 1.2 mmol/L Lab Interpretation (test code = 23829-0) Abnormal [facility]2023-08-24 19:48:06* Test Item Value Reference Range Interpretation Comme nts [place] (test code = 4085456533) 0.5 mmol/L 0.6-1.2 L ZAINAB (test code = ZAINAB) Toxic Range: ? Greater than 1.2 mmol/L Lab Interpretation (test code = 31028-0) [facility] [id number] 17:24:34 * Test Item Value Reference Range Interpretation Comme nts TSH (test code = 3238633852) 1.07 See_Comment [Automated messa ge] The system which generated this result transmitted reference range: 0.45 - 4.70 mIU/L. The reference range was not used to interpret this result as normal/abnormal. Lab Interpretation (test code = 26200-4) [facility] [id number] 17:24:34 * Test Item Value Reference Range Interpretation Comme nts TSH (test code = 7784769401) 1.07 See_Comment [Automated Synqeraa ge] The system which generated this result transmitted reference range: 0.45 - 4.70 mIU/L. The reference range was not used to interpret this result as normal/abnormal. Lab Interpretation (test code = 99661-6) [facility] [id number] 17:24:34 * Test Item Value Reference Range Interpretation Comme nts TSH (test code = 0547690863) 1.07 See_Comment [Automated messa ge] The system which generated this result transmitted reference range: 0.45 - 4.70 mIU/L. The reference range was not used to interpret this result as normal/abnormal. Lab Interpretation (test code = 23062-7) [facility] [id number] 17:24:34 * Test Item Value Reference Range Interpretation Comme nts TSH (test code = 5024532730) 1.07 See_Comment [Automated messa ge] The system which generated this result transmitted reference range: 0.45 - 4.70 mIU/L. The reference range was not used to interpret this result as normal/abnormal. Lab Interpretation (test code = 43565-9) [facility] [id number] 17:24:34 * Test Item Value Reference Range Interpretation Comme nts TSH (test code = 8072692899) 1.07 See_Comment [Automated messa ge] The system which generated this result transmitted reference range: 0.45 - 4.70 mIU/L. The reference range was not used to interpret this result as normal/abnormal. Lab Interpretation (test code = 59627-4) [facility] [id number] 17:24:34 * Test Item Value Reference Range Interpretation Comme nts TSH (test code = 2219738283) 1.07 See_Comment [Automated messa ge] The system which generated this result transmitted reference range: 0.45 - 4.70 mIU/L. The reference range was not used to interpret this result as normal/abnormal. Lab Interpretation (test code = 92320-5) [facility] [id number] 17:24:34 * Test Item Value Reference Range Interpretation Comme nts TSH (test code = 0411744540) 1.07 See_Comment [Automated messa ge] The system which generated this result transmitted reference range: 0.45 - 4.70 mIU/L. The reference range was not used to interpret this result as normal/abnormal. Lab Interpretation (test code = 81640-8) [facility] [id number] 17:24:34 * Test Item Value Reference Range Interpretation Comme nts TSH (test code = 8773601695) 1.07 See_Comment [Automated messa ge] The system which generated this result transmitted reference range: 0.45 - 4.70 mIU/L. The reference range was not used to interpret this result as normal/abnormal. Lab Interpretation (test code = 85730-7) [facility] [id number] 17:24:34 * Test Item Value Reference Range Interpretation Comme nts TSH (test code = 9681057918) 1.07 See_Comment [Automated messa ge] The system which generated this result transmitted reference range: 0.45 - 4.70 mIU/L. The reference range was not used to interpret this result as normal/abnormal. Lab Interpretation (test code = 72462-3) [facility] [id number] 17:24:34 * Test Item Value Reference Range Interpretation Comme nts TSH (test code = 8495802228) 1.07 See_Comment [Automated messa ge] The system which generated this result transmitted reference range: 0.45 - 4.70 mIU/L. The reference range was not used to interpret this result as normal/abnormal. Lab Interpretation (test code = 48444-8) [facility] [id number] 17:24:34 * Test Item Value Reference Range Interpretation Comme nts TSH (test code = 1478022417) 1.07 See_Comment [Automated messa ge] The system which generated this result transmitted reference range: 0.45 - 4.70 mIU/L. The reference range was not used to interpret this result as normal/abnormal. Lab Interpretation (test code = 44168-9) [facility] [id number] 17:24:34 * Test Item Value Reference Range Interpretation Comme nts TSH (test code = 9656901558) 1.07 See_Comment [Automated messa ge] The system which generated this result transmitted reference range: 0.45 - 4.70 mIU/L. The reference range was not used to interpret this result as normal/abnormal. Lab Interpretation (test code = 64256-4) [facility] [id number] 17:24:34 * Test Item Value Reference Range Interpretation Comme nts TSH (test code = 5746539768) 1.07 See_Comment [Automated [employer]] The system which generated this result transmitted reference range: 0.45 - 4.70 mIU/L. The reference range was not used to interpret this result as normal/abnormal. Lab Interpretation (test code = 11353-3) [facility] [id number] 17:24:34 * Test Item Value Reference Range Interpretation Comme nts TSH (test code = 7235890213) 1.07 See_Comment [Automated messa [employer]] The system which generated this result transmitted reference range: 0.45 - 4.70 mIU/L. The reference range was not used to interpret this result as normal/abnormal. Lab Interpretation (test code = 56065-5) Normal [facility]. METABOLIC PANEL ([id number])2022-10-05 16:54:48* Test Item Value Reference Range Interpretation Comme nts NA (test code = 2530716134) 140 mmol/L 135-145 K (test code = 0247891483) 4.6 mmol/L 3.5-5.0 CL (test code = 7263116821) 106 mmol/L 98-108 CO2 TOTAL (test code = 7381440870) 28 mmol/L 23-31 AGAP (test code = 9230251169) 6 2-16 BUN (test code = 0182618068) 5 mg/dL 7-23 L GLUCOSE (test code = 6389434195) 90 mg/dL 70-110 CREATININE (test code = 6042403327) 0.54 mg/dL 0.50-1.04 TOTAL BILI (test code = 2848004662) 0.1 mg/dL 0.1-1.1 CALCIUM (test code = 5783530896) 9.6 mg/dL 8.6-10.6 T PROTEIN (test code = 8702940534) 6.2 g/dL 6.3-8.2 L ALBUMIN (test code = 4132484429) 4.0 g/dL 3.5-5.0 ALK PHOS (test code = 3666380142) 125 U/L 34-122 H ALTv (test code = 1742-6) 29 U/L 5-35 AST(SGOT) (test code = 1596511323) 24 U/L 13-40 eGFR (test code = 6535062186) 122.1 mL/min/1.73m2 ZAINAB (test code = ZAINAB) [...] imaging tests). Lab Interpretation (test code = 53949-9) [facility]67039[facility]TOTAL CHOLESTEROL, TRIGLYCERIDES, HDL)2022-10-05 16:54:48* Test Item Value Reference Range Interpretation Comme nts CHOL (test code = 8233135489) 183 mg/dL 120-200 HDL (test code = 3599308766) 40 mg/dL >=50 L HDLC RATIO (test code = 6763085884) 4.6 <=4.5 H TRIG (test code = 5149265416) 128 mg/dL 30-170 LDL CHOL (test code = 87690-3) 117 mg/dL <=160 VLDL (test code = 6506801394) 26 mg/dL 5-60 Lab Interpretation (test cod e = 18122-8) [facility]OL[facility] (87031)2022-10-05 16:54:48* Test Item Value Reference Range Interpretation Comme nts NA (test code = 5367449237) 140 mmol/L 135-145 K (test code = 0880380499) 4.6 mmol/L 3.5-5.0 CL (test code = 8576658843) 106 mmol/L 98-108 CO2 TOTAL (test code = 7134045786) 28 mmol/L 23-31 AGAP (test code = 0371334170) 6 2-16 BUN (test code = 1355048669) 5 mg/dL 7-23 L GLUCOSE (test code = 4415082031) 90 mg/dL 70-110 CREATININE (test code = 4033801233) 0.54 mg/dL 0.50-1.04 TOTAL BILI (test code = 8876909357) 0.1 mg/dL 0.1-1.1 CALCIUM (test code = 0612574754) 9.6 mg/dL 8.6-10.6 T PROTEIN (test code = 8226211397) 6.2 g/dL 6.3-8.2 L ALBUMIN (test code = 1627434560) 4.0 g/dL 3.5-5.0 ALK PHOS (test code = 9804606238) 125 U/L 34-122 H ALTv (test code = 1742-6) 29 U/L 5-35 AST(SGOT) (test code = 1613329956) 24 U/L 13-40 eGFR (test code = 4018582601) 122.1 mL/min/1.73m2 ZAINAB (test code = ZAINAB) [...] imaging tests). Lab Interpretation (test code = 25142-9) [facility] (39808)(TOTAL CHOLESTEROL, TRIGLYCERIDES, HDL)2022-10-05 16:54:48* Test Item Value Reference Range Interpretation Comme nts CHOL (test code = 4704838602) 183 mg/dL 120-200 HDL (test code = 1323557663) 40 mg/dL >=50 L HDLC RATIO (test code = 3078729154) 4.6 <=4.5 H TRIG (test code = 5642585033) 128 mg/dL 30-170 LDL CHOL (test code = 32627-8) 117 mg/dL <=160 VLDL (test code = 1494629876) 26 mg/dL 5-60 Lab Interpretation (test cod e = 47245-8) [facility] (14974)2022-10-05 16:54:48* Test Item Value Reference Range Interpretation Comme nts NA (test code = 4001789766) 140 mmol/L 135-145 K (test code = 6045587590) 4.6 mmol/L 3.5-5.0 CL (test code = 8303077751) 106 mmol/L 98-108 CO2 TOTAL (test code = 8533155480) 28 mmol/L 23-31 AGAP (test code = 6959909466) 6 2-16 BUN (test code = 6188395458) 5 mg/dL 7-23 L GLUCOSE (test code = 5079729811) 90 mg/dL 70-110 CREATININE (test code = 9140451349) 0.54 mg/dL 0.50-1.04 TOTAL BILI (test code = 5212859435) 0.1 mg/dL 0.1-1.1 CALCIUM (test code = 2777161909) 9.6 mg/dL 8.6-10.6 T PROTEIN (test code = 6119951763) 6.2 g/dL 6.3-8.2 L ALBUMIN (test code = 5460010265) 4.0 g/dL 3.5-5.0 ALK PHOS (test code = 7044579828) 125 U/L 34-122 H ALTv (test code = 1742-6) 29 U/L 5-35 AST(SGOT) (test code = 2123817312) 24 U/L 13-40 eGFR (test code = 5092293857) 122.1 mL/min/1.73m2 ZAINAB (test code = ZAINAB) [...] imaging tests). Lab Interpretation (test code = 48038-0) [facility] (43209)(TOTAL CHOLESTEROL, TRIGLYCERIDES, HDL)2022-10-05 16:54:48* Test Item Value Reference Range Interpretation Comme nts CHOL (test code = 7872031571) 183 mg/dL 120-200 HDL (test code = 3200647367) 40 mg/dL >=50 L HDLC RATIO (test code = 9089875185) 4.6 <=4.5 H TRIG (test code = 9833277998) 128 mg/dL 30-170 LDL CHOL (test code = 40922-4) 117 mg/dL <=160 VLDL (test code = 3962306843) 26 mg/dL 5-60 Lab Interpretation (test cod e = 95030-9) [facility] (76476)(TOTAL CHOLESTEROL, TRIGLYCERIDES, HDL)2022-10-05 16:54:48* Test Item Value Reference Range Interpretation Comme nts CHOL (test code = 7965673177) 183 mg/dL 120-200 HDL (test code = 1033765105) 40 mg/dL >=50 L HDLC RATIO (test code = 3732964209) 4.6 <=4.5 H TRIG (test code = 7759460308) 128 mg/dL 30-170 LDL CHOL (test code = 63006-7) 117 mg/dL <=160 VLDL (test code = 7339793628) 26 mg/dL 5-60 Lab Interpretation (test cod e = 06018-5) [facility] (45273)(TOTAL CHOLESTEROL, TRIGLYCERIDES, HDL)2022-10-05 16:54:48* Test Item Value Reference Range Interpretation Comme nts CHOL (test code = 8479612915) 183 mg/dL 120-200 HDL (test code = 1542636252) 40 mg/dL >=50 L HDLC RATIO (test code = 7768102772) 4.6 <=4.5 H TRIG (test code = 7396252093) 128 mg/dL 30-170 LDL CHOL (test code = 13067-4) 117 mg/dL <=160 VLDL (test code = 9738174562) 26 mg/dL 5-60 Lab Interpretation (test cod e = 14935-0) [facility] (85746)(TOTAL CHOLESTEROL, TRIGLYCERIDES, HDL)2022-10-05 16:54:48* Test Item Value Reference Range Interpretation Comme nts CHOL (test code = 5219981009) 183 mg/dL 120-200 HDL (test code = 4781968103) 40 mg/dL >=50 L HDLC RATIO (test code = 3950569376) 4.6 <=4.5 H TRIG (test code = 8352632022) 128 mg/dL 30-170 LDL CHOL (test code = 34480-4) 117 mg/dL <=160 VLDL (test code = 7158071425) 26 mg/dL 5-60 Lab Interpretation (test cod e = 55487-8) [facility] (78111)(TOTAL CHOLESTEROL, TRIGLYCERIDES, HDL)2022-10-05 16:54:48* Test Item Value Reference Range Interpretation Comme nts CHOL (test code = 1223810668) 183 mg/dL 120-200 HDL (test code = 7637696329) 40 mg/dL >=50 L HDLC RATIO (test code = 9963180645) 4.6 <=4.5 H TRIG (test code = 3312805156) 128 mg/dL 30-170 LDL CHOL (test code = 61841-1) 117 mg/dL <=160 VLDL (test code = 9774987834) 26 mg/dL 5-60 Lab Interpretation (test cod e = 98053-7) [facility] (32959)(TOTAL CHOLESTEROL, TRIGLYCERIDES, HDL)2022-10-05 16:54:48* Test Item Value Reference Range Interpretation Comme nts CHOL (test code = 3326565379) 183 mg/dL 120-200 HDL (test code = 1945168838) 40 mg/dL >=50 L HDLC RATIO (test code = 1772792030) 4.6 <=4.5 H TRIG (test code = 9871819551) 128 mg/dL 30-170 LDL CHOL (test code = 66191-8) 117 mg/dL <=160 VLDL (test code = 9846910387) 26 mg/dL 5-60 Lab Interpretation (test cod e = 95329-6) [facility] (73076)(TOTAL CHOLESTEROL, TRIGLYCERIDES, HDL)2022-10-05 16:54:48* Test Item Value Reference Range Interpretation Comme nts CHOL (test code = 8278151930) 183 mg/dL 120-200 HDL (test code = 6525688035) 40 mg/dL >=50 L HDLC RATIO (test code = 1697761741) 4.6 <=4.5 H TRIG (test code = 5844794979) 128 mg/dL 30-170 LDL CHOL (test code = 15997-1) 117 mg/dL <=160 VLDL (test code = 0414657298) 26 mg/dL 5-60 Lab Interpretation (test cod e = 49338-5) [facility] (91160)(TOTAL CHOLESTEROL, TRIGLYCERIDES, HDL)2022-10-05 16:54:48* Test Item Value Reference Range Interpretation Comme nts CHOL (test code = 0800223273) 183 mg/dL 120-200 HDL (test code = 4605939241) 40 mg/dL >=50 L HDLC RATIO (test code = 5692143461) 4.6 <=4.5 H TRIG (test code = 0504451277) 128 mg/dL 30-170 LDL CHOL (test code = 70926-3) 117 mg/dL <=160 VLDL (test code = 2216905895) 26 mg/dL 5-60 Lab Interpretation (test cod e = 70385-2) [facility] (02693)(TOTAL CHOLESTEROL, TRIGLYCERIDES, HDL)2022-10-05 16:54:48* Test Item Value Reference Range Interpretation Comme nts CHOL (test code = 3217825178) 183 mg/dL 120-200 HDL (test code = 4845097131) 40 mg/dL >=50 L HDLC RATIO (test code = 2461569616) 4.6 <=4.5 H TRIG (test code = 2968026418) 128 mg/dL 30-170 LDL CHOL (test code = 90102-1) 117 mg/dL <=160 VLDL (test code = 8374843961) 26 mg/dL 5-60 Lab Interpretation (test cod e = 21266-2) [facility] (96060)(TOTAL CHOLESTEROL, TRIGLYCERIDES, HDL)2022-10-05 16:54:48* Test Item Value Reference Range Interpretation Comme nts CHOL (test code = 1086248436) 183 mg/dL 120-200 HDL (test code = 4835546033) 40 mg/dL >=50 L HDLC RATIO (test code = 4067883119) 4.6 <=4.5 H TRIG (test code = 0744096442) 128 mg/dL 30-170 LDL CHOL (test code = 71869-9) 117 mg/dL <=160 VLDL (test code = 4881001709) 26 mg/dL 5-60 Lab Interpretation (test cod e = 44354-9) [facility] (76412)(TOTAL CHOLESTEROL, TRIGLYCERIDES, HDL)2022-10-05 16:54:48* Test Item Value Reference Range Interpretation Comme nts CHOL (test code = 2426598659) 183 mg/dL 120-200 HDL (test code = 2044115051) 40 mg/dL >=50 L HDLC RATIO (test code = 1338572565) 4.6 <=4.5 H TRIG (test code = 7822810271) 128 mg/dL 30-170 LDL CHOL (test code = 52888-7) 117 mg/dL <=160 VLDL (test code = 6397140839) 26 mg/dL 5-60 Lab Interpretation (test cod e = 47955-6) [facility] (51686)(TOTAL CHOLESTEROL, TRIGLYCERIDES, HDL)2022-10-05 16:54:48* Test Item Value Reference Range Interpretation Comme nts CHOL (test code = 7064119808) 183 mg/dL 120-200 HDL (test code = 7287942275) 40 mg/dL >=50 L HDLC RATIO (test code = 0497552543) 4.6 <=4.5 H TRIG (test code = 2109611266) 128 mg/dL 30-170 LDL CHOL (test code = 05767-2) 117 mg/dL <=160 VLDL (test code = 3388164749) 26 mg/dL 5-60 Lab Interpretation (test cod e = 47684-2) [facility]A1C)2022-10-05 15:51:11* Test Item Value Reference Range Interpretation Comme nts HGB A1C (test code = 4548-4) 5.1 % 4.0-5.7 ZAINAB (test code = ZAINAB) Reference RangesNormal: <5.7%Prediabetes: 5.7 - 6.4%Diabetes: > 6.5% Lab Interpretation (test code = 78547-8) [facility]A1C)2022-10-05 15:51:11* Test Item Value Reference Range Interpretation Comme nts HGB A1C (test code = 4548-4) 5.1 % 4.0-5.7 ZAINAB (test code = ZAINAB) Reference RangesNormal: <5.7%Prediabetes: 5.7 - 6.4%Diabetes: > 6.5% Lab Interpretation (test code = 32941-8) [facility] 15:51:11* Test Item Value Reference Range Interpretation Comme nts HGB A1C (test code = 4548-4) 5.1 % 4.0-5.7 ZAINAB (test code = ZAINAB) Reference RangesNormal: <5.7%Prediabetes: 5.7 - 6.4%Diabetes: > 6.5% Lab Interpretation (test code = 38626-9) [facility]2022-10-05 15:51:11* Test Item Value Reference Range Interpretation Comme nts HGB A1C (test code = 4548-4) 5.1 % 4.0-5.7 ZAINAB (test code = ZAINAB) Reference RangesNormal: <5.7%Prediabetes: 5.7 - 6.4%Diabetes: > 6.5% Lab Interpretation (test code = 84661-9) [facility]2022-10-05 15:51:11* Test Item Value Reference Range Interpretation Comme nts HGB A1C (test code = 4548-4) 5.1 % 4.0-5.7 ZAINAB (test code = ZAINAB) Reference RangesNormal: <5.7%Prediabetes: 5.7 - 6.4%Diabetes: > 6.5% Lab Interpretation (test code = 07679-0) [facility]22-10-05 15:51:11* Test Item Value Reference Range Interpretation Comme nts HGB A1C (test code = 4548-4) 5.1 % 4.0-5.7 ZAINAB (test code = ZAINAB) Reference RangesNormal: <5.7%Prediabetes: 5.7 - 6.4%Diabetes: > 6.5% Lab Interpretation (test code = 60701-2) [facility]2022-10-05 15:51:11* Test Item Value Reference Range Interpretation Comme nts HGB A1C (test code = 4548-4) 5.1 % 4.0-5.7 ZAINAB (test code = ZAINAB) Reference RangesNormal: <5.7%Prediabetes: 5.7 - 6.4%Diabetes: > 6.5% Lab Interpretation (test code = 06493-2) [facility]2022-10-05 15:51:11* Test Item Value Reference Range Interpretation Comme nts HGB A1C (test code = 4548-4) 5.1 % 4.0-5.7 ZAINAB (test code = ZAINAB) Reference RangesNormal: <5.7%Prediabetes: 5.7 - 6.4%Diabetes: > 6.5% Lab Interpretation (test code = 40021-7) [facility]2022-10-05 15:51:11* Test Item Value Reference Range Interpretation Comme nts HGB A1C (test code = 4548-4) 5.1 % 4.0-5.7 ZAINAB (test code = ZAINAB) Reference RangesNormal: <5.7%Prediabetes: 5.7 - 6.4%Diabetes: > 6.5% Lab Interpretation (test code = 31469-6) [facility]2022-10-05 15:51:11* Test Item Value Reference Range Interpretation Comme nts HGB A1C (test code = 4548-4) 5.1 % 4.0-5.7 ZAINAB (test code = ZAINAB) Reference RangesNormal: <5.7%Prediabetes: 5.7 - 6.4%Diabetes: > 6.5% Lab Interpretation (test code = 64111-0) [facility]2022-10-05 15:51:11* Test Item Value Reference Range Interpretation Comme nts HGB A1C (test code = 4548-4) 5.1 % 4.0-5.7 ZAINAB (test code = ZAINAB) Reference RangesNormal: <5.7%Prediabetes: 5.7 - 6.4%Diabetes: > 6.5% Lab Interpretation (test code = 53048-9) [facility]2022-10-05 15:51:11* Test Item Value Reference Range Interpretation Comme nts HGB A1C (test code = 4548-4) 5.1 % 4.0-5.7 ZAINAB (test code = ZAINAB) Reference RangesNormal: <5.7%Prediabetes: 5.7 - 6.4%Diabetes: > 6.5% Lab Interpretation (test code = 08938-3) [facility]2022-10-05 15:51:11* Test Item Value Reference Range Interpretation Comme nts HGB A1C (test code = 4548-4) 5.1 % 4.0-5.7 ZAINAB (test code = ZAINAB) Reference RangesNormal: <5.7%Prediabetes: 5.7 - 6.4%Diabetes: > 6.5% Lab Interpretation (test code = 44563-9) [facility]2022-10-05 15:51:11* Test Item Value Reference Range Interpretation Comme nts HGB A1C (test code = 4548-4) 5.1 % 4.0-5.7 ZAINAB (test code = ZAINAB) Reference RangesNormal: <5.7%Prediabetes: 5.7 - 6.4%Diabetes: > 6.5% Lab Interpretation (test code = 66362-5) [facility] [id number] 15:20:32* Test Item Value Reference Range Interpretation [...] g/dL 31.6-35.1 L RDW-SD (test code = 74301-6) 47.8 fL 39.0-49.9 RDW-CV (test code = 788-0) 18.0 % 12.0-15.5 H PLT (test code = 777-3) 296 See_Comment [Automated messa ge] The system which generated this result transmitted reference range: 166 - 358 10*3/?L. The reference range was not used to interpret this result as normal/abnormal. MPV (test code = 09161-2) 10.7 fL 9.5-12.9 NRBC/100 WBC (test code = 4138594654) 0.0 See_Comment [Automated [employer] ssage] The system which generated this result transmitted reference range: 0.0 - 10.0 /100 WBCs. The reference range was not used to interpret this result as normal/abnormal. NRBC x10^3 (test code = 6756585234) See_Comment [Automated messa ge] The system which generated this result transmitted reference range: 10*3/?L. The reference range was not used to interpret this result as normal/abnormal. GRAN MAT (NEUT) % (test code = 770-8) 70.0 % IMM GRAN % (test code = 2910239089) 0.40 % LYMPH % (test code = 736-9) 18.7 % MONO % (test code = 5905-5) 5.7 % EOS % (test code = 713-8) 4.5 % BASO % (test code = 706-2) 0.7 % GRAN MAT x10^3(ANC) (test code = 9884931320) 4.66 10*3/uL 1.88-7.09 IMM GRAN x10^3 (test code = 2207543830) 0.03 10*3/uL 0.00-0.06 LYMPH x10^3 (test code = 731-0) 1.25 10*3/uL 1.32-3.29 L MONO x10^3 (test code = 742-7) 0.38 10*3/uL 0.33-0.92 EOS x10^3 (test code = 711-2) 0.30 10*3/uL 0.03-0.39 BASO x10^3 (test code = 704-7) 0.05 10*3/uL 0.01-0.07 Lab Interpretation (test code = 42013-6) Abnormal [facility] WITH [id number] 15:20:32* Test Item Value Reference Range Interpretation [...] g/dL 31.6-35.1 L RDW-SD (test code = 04005-2) 47.8 fL 39.0-49.9 RDW-CV (test code = 788-0) 18.0 % 12.0-15.5 H PLT (test code = 777-3) 296 See_Comment [Automated messa ge] The system which generated this result transmitted reference range: 166 - 358 10*3/?L. The reference range was not used to interpret this result as normal/abnormal. MPV (test code = 53960-6) 10.7 fL 9.5-12.9 NRBC/100 WBC (test code = 0188040239) 0.0 See_Comment [Automated [employer] ssage] The system which generated this result transmitted reference range: 0.0 - 10.0 /100 WBCs. The reference range was not used to interpret this result as normal/abnormal. NRBC x10^3 (test code = 4106314860) See_Comment [Automated [employer]] The system which generated this result transmitted reference range: 10*3/?L. The reference range was not used to interpret this result as normal/abnormal. GRAN MAT (NEUT) % (test code = 770-8) 70.0 % IMM GRAN % (test code = 4802931911) 0.40 % LYMPH % (test code = 736-9) 18.7 % MONO % (test code = 5905-5) 5.7 % EOS % (test code = 713-8) 4.5 % BASO % (test code = 706-2) 0.7 % GRAN MAT x10^3(ANC) (test code = 1703334473) 4.66 10*3/uL 1.88-7.09 IMM GRAN x10^3 (test code = 3414173121) 0.03 10*3/uL 0.00-0.06 LYMPH x10^3 (test code = 731-0) 1.25 10*3/uL 1.32-3.29 L MONO x10^3 (test code = 742-7) 0.38 10*3/uL 0.33-0.92 EOS x10^3 (test code = 711-2) 0.30 10*3/uL 0.03-0.39 BASO x10^3 (test code = 704-7) 0.05 10*3/uL 0.01-0.07 Lab Interpretation (test code = 56597-9) Abnormal [facility] WITH [id number] 15:20:32* Test Item Value Reference Range Interpretation Comme nts WBC (test code = 6690-2) 6.67 See_Comment [Automated messa ge] The system which generated this result transmitted reference range: 4.30 - 11.10 10*3/?L. The reference range was not used to interpret this result as normal/abnormal. RBC (test code = 789-8) 4.04 See_Comment [Automated [employer] ge] The system which generated this result [...] g/dL 31.6-35.1 L RDW-SD (test code = 94992-8) 47.8 fL 39.0-49.9 RDW-CV (test code = 788-0) 18.0 % 12.0-15.5 H PLT (test code = 777-3) 296 See_Comment [Automated messa ge] The system which generated this result transmitted reference range: 166 - 358 10*3/?L. The reference range was not used to interpret this result as normal/abnormal. MPV (test code = 81825-3) 10.7 fL 9.5-12.9 NRBC/100 WBC (test code = [id number]) 0.0 See_Comment [Automated [employer] ssage] The system which generated this result transmitted reference range: 0.0 - 10.0 /100 WBCs. The reference range was not used to interpret this result as normal/abnormal. NRBC x10^3 (test code = [id number]) See_Comment [Automated messa ge] The system which generated this result transmitted reference range: 10*3/?L. The reference range was not used to interpret this result as normal/abnormal. GRAN MAT (NEUT) % (test code = 770-8) 70.0 % IMM GRAN % (test code = 1561713474) 0.40 % LYMPH % (test code = 736-9) 18.7 % MONO % (test code = 5905-5) 5.7 % EOS % (test code = 713-8) 4.5 % BASO % (test code = 706-2) 0.7 % GRAN MAT x10^3(ANC) (test code = 2343481244) 4.66 10*3/uL 1.88-7.09 IMM GRAN x10^3 (test code = 5650121698) 0.03 10*3/uL 0.00-0.06 LYMPH x10^3 (test code = 731-0) 1.25 10*3/uL 1.32-3.29 L MONO x10^3 (test code = 742-7) 0.38 10*3/uL 0.33-0.92 EOS x10^3 (test code = 711-2) 0.30 10*3/uL 0.03-0.39 BASO x10^3 (test code = 704-7) 0.05 10*3/uL 0.01-0.07 Lab Interpretation (test code = 33469-4) Abnormal [facility]2023-06-14 17:27:33* Test Item Value Reference Range Interpretation Comme nts [place] (test code = 9113585501) 0.3 mmol/L 0.6-1.2 L ZAINAB (test code = ZAINAB) Toxic Range: ? Greater than 1.2 mmol/L Lab Interpretation (test code = 72549-6) Abnormal [facility]2023-06-14 17:27:33* Test Item Value Reference Range Interpretation Comme nts [place] (test code = 8070217098) 0.3 mmol/L 0.6-1.2 L ZAINAB (test code = ZAINAB) Toxic Range: ? Greater than 1.2 mmol/L Lab Interpretation (test code = 18822-1) Abnormal [facility]2023-06-14 17:27:33* Test Item Value Reference Range Interpretation Comme nts [place] (test code = 5702235320) 0.3 mmol/L 0.6-1.2 L ZAINAB (test code = ZAINAB) Toxic Range: ? Greater than 1.2 mmol/L Lab Interpretation (test code = 13160-8) Abnormal [facility]2023-06-14 17:27:33* Test Item Value Reference Range Interpretation Comme nts [place] (test code = 1196942587) 0.3 mmol/L 0.6-1.2 L ZAINAB (test code = ZAINAB) Toxic Range: ? Greater than 1.2 mmol/L Lab Interpretation (test code = 49404-1) Abnormal [facility]2023-06-14 17:27:33* Test Item Value Reference Range Interpretation Comme nts [place] (test code = 8669462858) 0.3 mmol/L 0.6-1.2 L ZAINAB (test code = ZAINAB) Toxic Range: ? Greater than 1.2 mmol/L Lab Interpretation (test code = 64426-7) Abnormal [facility]2023-06-14 17:27:33* Test Item Value Reference Range Interpretation Comme nts [place] (test code = 8783341205) 0.3 mmol/L 0.6-1.2 L ZAINAB (test code = ZAINAB) Toxic Range: ? Greater than 1.2 mmol/L Lab Interpretation (test code = 56467-0) Abnormal [facility]2023-06-14 17:27:33* Test Item Value Reference Range Interpretation Comme nts [place] (test code = 8003697801) 0.3 mmol/L 0.6-1.2 L ZAINAB (test code = ZAINAB) Toxic Range: ? Greater than 1.2 mmol/L Lab Interpretation (test code = 84021-8) Abnormal [facility]2023-06-14 17:27:33* Test Item Value Reference Range Interpretation Comme nts [place] (test code = 6280771922) 0.3 mmol/L 0.6-1.2 L ZAINAB (test code = ZAINAB) Toxic Range: ? Greater than 1.2 mmol/L Lab Interpretation (test code = 50693-0) Abnormal [facility]2023-06-14 17:27:33* Test Item Value Reference Range Interpretation Comme nts [place] (test code = 3137743959) 0.3 mmol/L 0.6-1.2 L ZAINAB (test code = ZAINAB) Toxic Range: ? Greater than 1.2 mmol/L Lab Interpretation (test code = 14993-2) Abnormal [facility]2023-06-14 17:27:33* Test Item Value Reference Range Interpretation Comme nts [place] (test code = 3154222378) 0.3 mmol/L 0.6-1.2 L ZAINAB (test code = ZAINAB) Toxic Range: ? Greater than 1.2 mmol/L Lab Interpretation (test code = 59730-3) Abnormal [facility]2023-06-14 17:27:33* Test Item Value Reference Range Interpretation Comme nts [place] (test code = 7868606300) 0.3 mmol/L 0.6-1.2 L ZAINAB (test code = ZAINAB) Toxic Range: ? Greater than 1.2 mmol/L Lab Interpretation (test code = 47019-3) Abnormal [facility]2023-06-14 17:27:33* Test Item Value Reference Range Interpretation Comme nts [place] (test code = 5253603053) 0.3 mmol/L 0.6-1.2 L ZAINAB (test code = ZAINAB) Toxic Range: ? Greater than 1.2 mmol/L Lab Interpretation (test code = 80372-7) Abnormal [facility] W/AUTO DIFF WITH [id number] 06:12:05* Test Item Value Reference Range Interpretation [...] = 1065) 0.0 /100 WBC'S See_Comment [Automated Synqeraa ge] The system which generated this result [...] 0.00-0.10 ABS NUCLEATED RBCS (test code = 84379) 0.00 K/UL 0.00-0.11 RETICULOCYTE WITH [id number] 06:12:05* Test Item Value Reference Range Interpretation Comme nts RETICULOCYTE COUNT (test code = 1018) 2.50 % 0.80-2.40 H ABSOLUTE RETICULOCYTE (test code = 32430) 103.3 K/UL 32.0-105.0 [facility] has important pathology staff changes effective 04/12/2022. New pathology staff will provide uninterrupted, excellent patient care and clinical consultation. See URL: [email or web address]. UNLESS OTHERWISE INDICATED, ALL TESTING PERFORMED AT [facility] [address] [place] [address] REGULATORY CONSULTANT: CHARLA HERNANDEZ M.D. CLIA NUMBER [id number] [place]. [id number] CBC W/AUTO [id number] 00:00:00* Test Item Value Reference Range Interpretation [...] ABS NUCLEATED RBCS (test cod e = 64823) 0.00 K/UL Roebrt CaliRETICULOCYTE WITH [id number] 00:00:00* Test Item Value Reference Range Interpretation Comme nts RETICULOCYTE COUNT (test cod e = 1018) 2.50 % ABSOLUTE RETICULOCYTE (test code = 83886) 103.3 K/UL Robert CaliCBC W/AUTO [id number] 00:00:00* Test Item Value Reference Range Interpretation [...] ABS NUCLEATED RBCS (test cod e = 08003) 0.00 K/UL Robert CaliRETICULOCYTE WITH [id number] 00:00:00* Test Item Value Reference Range Interpretation Comme nts RETICULOCYTE COUNT (test cod e = 1018) 2.50 % ABSOLUTE RETICULOCYTE (test code = 01101) 103.3 K/UL Robert CaliCBC W/AUTO [id number] 00:00:00* Test Item Value Reference Range Interpretation [...] ABS NUCLEATED RBCS (test cod e = 11739) 0.00 K/UL Robert CaliRETICULOCYTE WITH [id number] 00:00:00* Test Item Value Reference Range Interpretation Comme nts RETICULOCYTE COUNT (test cod e = 1018) 2.50 % ABSOLUTE RETICULOCYTE (test code = 64011) 103.3 K/UL Robert Ambrose VirajCBC W/AUTO [id number] 00:00:00* Test Item Value Reference Range Interpretation [...] ABS NUCLEATED RBCS (test cod e = 84270) 0.00 K/UL Robert Ambrose VirajRETICULOCYTE WITH [id number] 00:00:00* Test Item Value Reference Range Interpretation Comme nts RETICULOCYTE COUNT (test cod e = 1018) 2.50 % ABSOLUTE RETICULOCYTE (test code = 63661) 103.3 K/UL Robert Ambrose VirajCBC W/AUTO [id number] 00:00:00* Test Item Value Reference Range Interpretation [...] ABS NUCLEATED RBCS (test cod e = 13183) 0.00 K/UL Robert CaliRETICULOCYTE WITH [id number] 00:00:00* Test Item Value Reference Range Interpretation Comme nts RETICULOCYTE COUNT (test cod e = 1018) 2.50 % ABSOLUTE RETICULOCYTE (test code = 58384) 103.3 K/UL Robert CaliANA NON-REFLEX TO [id number] 05:55:49* Test Item Value Reference Range Interpretation Comme nts ANTI-NUCLEAR ANTIBODIES (test code = 3506) NEGATIVE NEGATIVE METHODOLOGY IS I NDIRECT IMMUNOFLUORESCENT ASSAY (IFA) WITH HUMAN EPITHELIAL (HEP-2) CELL LINE SUBSTRATE. YAZMIN NON-REFLEX TO [id number] 00:00:00* Test Item Value Reference Range Interpretation Comme nts ANTI-NUCLEAR ANTIBODIES (aram t code = 3506) NEGATIVE Robert Ambrose AustinANA NON-REFLEX TO [id number] 00:00:00* Test Item Value Reference Range Interpretation Comme nts ANTI-NUCLEAR ANTIBODIES (aram t code = 3506) NEGATIVE Robert Ambrose AustinANA NON-REFLEX TO [id number] 00:00:00* Test Item Value Reference Range Interpretation Comme nts ANTI-NUCLEAR ANTIBODIES (aram t code = 3506) NEGATIVE Robert Ambrose AustinANA NON-REFLEX TO [id number] 00:00:00* Test Item Value Reference Range Interpretation Comme nts ANTI-NUCLEAR ANTIBODIES (aram t code = 3506) NEGATIVE Robert Ambrose AustinANA NON-REFLEX TO [id number] 00:00:00* Test Item Value Reference Range Interpretation Comme nts ANTI-NUCLEAR ANTIBODIES (aram t code = 3506) NEGATIVE Robert CaliFOLATE, [id number] 12:42:51* Test Item Value Reference Range Interpretation [...] . . . NG/ML >1504 TSH, THIRD [id number] 11:05:54* Test Item Value Reference Range Interpretation Comme [facility] TSH, THIRD GENERATION (test code = 2821) 1.310 UIU/ML 0.400-4.100 VITAMIN [id number] 11:05:54* Test Item Value Reference Range Interpretation Comme [facility] VITAMIN B-12 (test code = 2840) 436 PG/ML 200-950 VITAMIN D, 25 [id number] 11:03:45* Test Item Value Reference Range Interpretation Comme [facility] VITAMIN D, 25 OH (test code = [...] . . . . . NG/ML 30-100 [facility] has important pathology staff changes effective 04/12/2022. New pathology staff will provide uninterrupted, excellent patient care and clinical consultation. See URL: [email or web address]. UNLESS OTHERWISE INDICATED, ALL TESTING PERFORMED AT [facility] [address] [place] [address] REGULATORY CONSULTANT: CHARLA HERNANDEZ M.D. CLIA NUMBER [id number] [place]. [id number] URIC [id number] 05:28:57* Test Item Value Reference Range Interpretation Comme nts URIC ACID (test code = 223) 6.7 MG/DL 2.7-6.1 H COMPREHENSIVE METABOLIC [id number] 05:28:57* Test Item Value Reference Range Interpretation Comme nts GLUCOSE (test code = 2217) 103 MG/DL 70-99 H BUN (test code = 220) 9 MG/DL 6-20 CREATININE (test code = 221) 0.72 MG/DL 0.60-1.30 eGFR (2020 CKD-EPI) (test code = 75011) 106 ML/MIN/1.73 >60 CALC BUN/CREAT (test code = 2235) 13 RATIO 6-28 SODIUM (test code = 223) 139 MEQ/L 133-146 POTASSIUM (test code = 222) 4.5 MEQ/L 3.5-5.4 CHLORIDE (test code = 2215) 104 MEQ/L 95-107 CARBON DIOXIDE (test code = 220) 24 MEQ/L 19-31 CALCIUM (test code = 220) 9.5 MG/DL 8.5-10.5 PROTEIN, TOTAL (test code [...] code = 2219) 26 U/L 5-40 LIPID [id number] 05:28:57* Test Item Value Reference Range Interpretation [...] SPECIMENS. FOR MOREINFORMATION, SEE CLIENT ANNOUNCEMENT AT [email or web address] RISK RATIO LDL/HDL (test code = 2238) 3.04 RATIO <3.22 HEMOGLOBIN [id number] 02:54:46* Test Item Value Reference Range Interpretation Comme nts HEMOGLOBIN A1c (test code = 56418) 5.6 % 4.2-5.6 CBC W/AUTO DIFF WITH [id number] 01:58:18* Test Item Value Reference Range Interpretation [...] = 1065) 0.0 /100 WBC'S See_Comment [Automated dELiAs] The system which generated this result transmitted [...] 0.00-0.10 ABS NUCLEATED RBCS (test code = 15536) 0.00 K/UL 0.00-0.11 VITAMIN [id number] 00:00:00* Test Item Value Reference Range Interpretation Comme [facility] VITAMIN B-12 (test code = 2840) 436 PG/ML Robert CaliFOLATE, [id number] 00:00:00* Test Item Value Reference Range Interpretation Comme [facility] HEMATOCRIT (test code = 1004) 28.7 % FOLATE, RBC (test code = 2690) 1185 NG/ML Robert CaliURIC [id number] 00:00:00* Test Item Value Reference Range Interpretation Comme [facility] URIC ACID (test code = 2233) 6.7 MG/DL Robert CaliVITAMIN D, 25 [id number] 00:00:00* Test Item Value Reference Range Interpretation Comme [facility] VITAMIN D, 25 [place] (test code = 4958) 13 NG/ML Robert CaliCOMPREHENSIVE METABOLIC [id number] 00:00:00* Test Item Value Reference Range Interpretation Comme nts GLUCOSE (test code = 2217) 103 MG/DL BUN (test code = 2208) 9 MG/DL CREATININE (test code = 2214) 0.72 MG/DL eGFR (2020 CKD-EPI) (test code = 33514) 106 ML/MIN/1.73 CALC BUN/CREAT (test code = [...] code = 2219) 26 U/L Robert CaliLIPID [id number] 00:00:00* Test Item Value Reference Range Interpretation Comme nts CHOLESTEROL (test code = 2210) 207 MG/DL TRIGLYCERIDES (test code = 2232) 130 MG/DL HDL CHOLESTEROL (test code = 2220) 45 MG/DL CALC LDL CHOL (test code = 2237) 137 MG/DL RISK RATIO LDL/HDL (test cod e = 2238) 3.04 RATIO Robert CaliHEMOGLOBIN [id number] 00:00:00* Test Item Value Reference Range Interpretation Comme [facility] HEMOGLOBIN A1c (test code = 40898) 5.6 % Robert CaliCBC W/AUTO [id number] 00:00:00* Test Item Value Reference Range Interpretation [...] ABS NUCLEATED RBCS (test cod e = 92555) 0.00 K/UL Robert FullerH, THIRD [id number] 00:00:00* Test Item Value Reference Range Interpretation Comme [facility] TSH, THIRD GENERATION (test code = 2821) 1.310 UIU/ML Robert CaliVITAMIN [id number] 00:00:00* Test Item Value Reference Range Interpretation Comme [facility] VITAMIN B-12 (test code = 2840) 436 PG/ML Robert CaliFOLATE, [id number] 00:00:00* Test Item Value Reference Range Interpretation Comme [facility] HEMATOCRIT (test code = 1004) 28.7 % FOLATE, RBC (test code = 2690) 1185 NG/ML Robert CaliURIC [id number] 00:00:00* Test Item Value Reference Range Interpretation Comme [facility] URIC ACID (test code = 2233) 6.7 MG/DL Robert CaliVITAMIN D, 25 [id number] 00:00:00* Test Item Value Reference Range Interpretation Comme [facility] VITAMIN D, 25 OH (test code = 4958) 13 NG/ML Robert CailCOMPREHENSIVE METABOLIC [id number] 00:00:00* Test Item Value Reference Range Interpretation Comme nts GLUCOSE (test code = 2217) 103 MG/DL BUN (test code = 2208) 9 MG/DL CREATININE (test code = 2214) 0.72 MG/DL eGFR (2020 CKD-EPI) (test code = 89836) 106 ML/MIN/1.73 CALC BUN/CREAT (test code = [...] code = 2219) 26 U/L Robert CaliLIPID [id number] 00:00:00* Test Item Value Reference Range Interpretation Comme nts CHOLESTEROL (test code = 2210) 207 MG/DL TRIGLYCERIDES (test code = 2232) 130 MG/DL HDL CHOLESTEROL (test code = 2220) 45 MG/DL CALC LDL CHOL (test code = 2237) 137 MG/DL RISK RATIO LDL/HDL (test cod e = 2238) 3.04 RATIO Robert CaliHEMOGLOBIN [id number] 00:00:00* Test Item Value Reference Range Interpretation Comme nts HEMOGLOBIN A1c (test code = 07760) 5.6 % Robert CaliCBC W/AUTO [id number] 00:00:00* Test Item Value Reference Range Interpretation [...] ABS NUCLEATED RBCS (test cod e = 98511) 0.00 K/UL Robert CaliTSH, THIRD [id number] 00:00:00* Test Item Value Reference Range Interpretation Comme [facility] TSH, THIRD GENERATION (test code = 2821) 1.310 UIU/ML Robert CaliVITAMIN [id number] 00:00:00* Test Item Value Reference Range Interpretation Comme [facility] VITAMIN B-12 (test code = 2840) 436 PG/ML Robert CaliFOLATE, [id number] 00:00:00* Test Item Value Reference Range Interpretation Comme [facility] HEMATOCRIT (test code = 1004) 28.7 % FOLATE, RBC (test code = 2690) 1185 NG/ML Robert CaliURIC [id number] 00:00:00* Test Item Value Reference Range Interpretation Comme [facility] URIC ACID (test code = 2233) 6.7 MG/DL Robert CaliVITAMIN D, 25 [id number] 00:00:00* Test Item Value Reference Range Interpretation Comme [facility] VITAMIN D, 25 OH (test code = 4958) 13 NG/ML Robert CaliCOMPREHENSIVE METABOLIC [id number] 00:00:00* Test Item Value Reference Range Interpretation Comme nts GLUCOSE (test code = 2217) 103 MG/DL BUN (test code = 2208) 9 MG/DL CREATININE (test code = 2214) 0.72 MG/DL eGFR (2020 CKD-EPI) (test code = 74754) 106 ML/MIN/1.73 CALC BUN/CREAT (test code = [...] code = 2219) 26 U/L Robert CaliLIPID [id number] 00:00:00* Test Item Value Reference Range Interpretation Comme nts CHOLESTEROL (test code = 2210) 207 MG/DL TRIGLYCERIDES (test code = 2232) 130 MG/DL HDL CHOLESTEROL (test code = 2220) 45 MG/DL CALC LDL CHOL (test code = 2237) 137 MG/DL RISK RATIO LDL/HDL (test cod e = 2238) 3.04 RATIO Robert CaliHEMOGLOBIN [id number] 00:00:00* Test Item Value Reference Range Interpretation Comme nts HEMOGLOBIN A1c (test code = 24621) 5.6 % Robert CaliCBC W/AUTO [id number] 00:00:00* Test Item Value Reference Range Interpretation [...] ABS NUCLEATED RBCS (test cod e = 98237) 0.00 K/UL Robert CaliTSH, THIRD [id number] 00:00:00* Test Item Value Reference Range Interpretation Comme [facility] TSH, THIRD GENERATION (test code = 2821) 1.310 UIU/ML Robert CaliVITAMIN [id number] 00:00:00* Test Item Value Reference Range Interpretation Comme [facility] VITAMIN B-12 (test code = 2840) 436 PG/ML Robert CaliFOLATE, [id number] 00:00:00* Test Item Value Reference Range Interpretation Comme [facility] HEMATOCRIT (test code = 1004) 28.7 % FOLATE, RBC (test code = 2690) 1185 NG/ML Robert CaliURIC [id number] 00:00:00* Test Item Value Reference Range Interpretation Comme [facility] URIC ACID (test code = 2233) 6.7 MG/DL Robert CaliVITAMIN D, 25 [id number] 00:00:00* Test Item Value Reference Range Interpretation Comme [facility] VITAMIN D, 25 [place] (test code = 4958) 13 NG/ML Robert CaliCOMPREHENSIVE METABOLIC [id number] 00:00:00* Test Item Value Reference Range Interpretation Comme nts GLUCOSE (test code = 2217) 103 MG/DL BUN (test code = 2208) 9 MG/DL CREATININE (test code = 2214) 0.72 MG/DL eGFR (2020 CKD-EPI) (test code = 46554) 106 ML/MIN/1.73 CALC BUN/CREAT (test code = [...] code = 2219) 26 U/L Robert CaliLIPID [id number] 00:00:00* Test Item Value Reference Range Interpretation Comme nts CHOLESTEROL (test code = 2210) 207 MG/DL TRIGLYCERIDES (test code = 2232) 130 MG/DL HDL CHOLESTEROL (test code = 2220) 45 MG/DL CALC LDL CHOL (test code = 2237) 137 MG/DL RISK RATIO LDL/HDL (test cod e = 2238) 3.04 RATIO Robert CaliHEMOGLOBIN [id number] 00:00:00* Test Item Value Reference Range Interpretation Comme [facility] HEMOGLOBIN A1c (test code = 08043) 5.6 % Robert CaliCBC W/AUTO [id number] 00:00:00* Test Item Value Reference Range Interpretation [...] ABS NUCLEATED RBCS (test cod e = 68228) 0.00 K/UL Robert FullerH, THIRD [id number] 00:00:00* Test Item Value Reference Range Interpretation Comme [facility] TSH, THIRD GENERATION (test code = 2821) 1.310 UIU/ML Robert CaliVITAMIN [id number] 00:00:00* Test Item Value Reference Range Interpretation Comme [facility] VITAMIN B-12 (test code = 2840) 436 PG/ML Robert CaliFOLATE, [id number] 00:00:00* Test Item Value Reference Range Interpretation Comme [facility] HEMATOCRIT (test code = 1004) 28.7 % FOLATE, RBC (test code = 2690) 1185 NG/ML Robert CaliURIC [id number] 00:00:00* Test Item Value Reference Range Interpretation Comme [facility] URIC ACID (test code = 2233) 6.7 MG/DL Robert CaliVITAMIN D, 25 [id number] 00:00:00* Test Item Value Reference Range Interpretation Comme [facility] VITAMIN D, 25 OH (test code = 4958) 13 NG/ML Robert CaliCOMPREHENSIVE METABOLIC [id number] 00:00:00* Test Item Value Reference Range Interpretation Comme nts GLUCOSE (test code = 2217) 103 MG/DL BUN (test code = 2208) 9 MG/DL CREATININE (test code = 2214) 0.72 MG/DL eGFR (2020 CKD-EPI) (test code = 39708) 106 ML/MIN/1.73 CALC BUN/CREAT (test code = [...] code = 2219) 26 U/L Robert CaliLIPID [id number] 00:00:00* Test Item Value Reference Range Interpretation Comme nts CHOLESTEROL (test code = 2210) 207 MG/DL TRIGLYCERIDES (test code = 2232) 130 MG/DL HDL CHOLESTEROL (test code = 2220) 45 MG/DL CALC LDL CHOL (test code = 2237) 137 MG/DL RISK RATIO LDL/HDL (test cod e = 2238) 3.04 RATIO Robert CaliHEMOGLOBIN [id number] 00:00:00* Test Item Value Reference Range Interpretation Comme nts HEMOGLOBIN A1c (test code = 76345) 5.6 % Robert CaliCBC W/AUTO [id number] 00:00:00* Test Item Value Reference Range Interpretation [...] ABS NUCLEATED RBCS (test cod e = 88482) 0.00 K/UL Robert FullerH, THIRD [id number] 00:00:00* Test Item Value Reference Range Interpretation Comme nts TSH, THIRD GENERATION (test code = 2821) 1.310 UIU/ML Robert [id number] 20:05:22* Test Item Value Reference Range Interpretation Comme nts [place] (test code = 1211108021) 1.1 mmol/L 0.6-1.2 ZAINAB (test code = ZAINAB) Toxic Range: ? Greater than 1.2 mmol/L Lab Interpretation (test code = 38250-3) [facility]2023-01-04 20:05:22* Test Item Value Reference Range Interpretation Comme nts [place] (test code = 1140515662) 1.1 mmol/L 0.6-1.2 ZAINAB (test code = ZAINAB) Toxic Range: ? Greater than 1.2 mmol/L Lab Interpretation (test code = 42600-1) Normal [facility]2023-01-04 20:05:22* Test Item Value Reference Range Interpretation Comme nts [place] (test code = 5439391315) 1.1 mmol/L 0.6-1.2 ZAINAB (test code = ZAINAB) Toxic Range: ? Greater than 1.2 mmol/L Lab Interpretation (test code = 35199-7) [facility]2023-01-04 20:05:22* Test Item Value Reference Range Interpretation Comme nts [place] (test code = 4780350620) 1.1 mmol/L 0.6-1.2 ZAINAB (test code = ZAINAB) Toxic Range: ? Greater than 1.2 mmol/L Lab Interpretation (test code = 91004-3) [place] [address]-01-04 20:05:22* Test Item Value Reference Range Interpretation Comme nts [place] (test code = 5326652098) 1.1 mmol/L 0.6-1.2 ZAINAB (test code = ZAINAB) Toxic Range: ? Greater than 1.2 mmol/L Lab Interpretation (test code = 51858-4) [address]01-04 20:05:22* Test Item Value Reference Range Interpretation Comme nts [place] (test code = 3702563535) 1.1 mmol/L 0.6-1.2 ZAINAB (test code = ZAINAB) Toxic Range: ? Greater than 1.2 mmol/L Lab Interpretation (test code = 46979-5) [place] [address]-01-04 20:05:22* Test Item Value Reference Range Interpretation Comme nts [place] (test code = 5855506422) 1.1 mmol/L 0.6-1.2 ZAINAB (test code = ZAINAB) Toxic Range: ? Greater than 1.2 mmol/L Lab Interpretation (test code = 82321-7) [place] [address]-01-04 20:05:22* Test Item Value Reference Range Interpretation Comme nts [place] (test code = 9986648246) 1.1 mmol/L 0.6-1.2 ZAINAB (test code = ZAINAB) Toxic Range: ? Greater than 1.2 mmol/L Lab Interpretation (test code = 93498-2) [place] [address]-01-04 20:05:22* Test Item Value Reference Range Interpretation Comme nts [place] (test code = 2711692252) 1.1 mmol/L 0.6-1.2 ZAINAB (test code = ZAINAB) Toxic Range: ? Greater than 1.2 mmol/L Lab Interpretation (test code = 22841-7) [place] [address]-01-04 20:05:22* Test Item Value Reference Range Interpretation Comme nts [place] (test code = 4476224531) 1.1 mmol/L 0.6-1.2 ZAINAB (test code = ZAINAB) Toxic Range: ? Greater than 1.2 mmol/L Lab Interpretation (test code = 84066-0) [facility] [id number] 00:00:00* Test Item Value Reference Range Interpretation Comme nts VITAMIN D, 25 OH (test code = 4958) 17 NG/ML Robert CaliCBC W/AUTO [id number] 00:00:00* Test Item Value Reference Range Interpretation [...] ABS NUCLEATED RBCS (test cod e = 60793) 0.00 K/UL Robert CaliHEMOGLOBIN [id number] 00:00:00* Test Item Value Reference Range Interpretation Comme nts HEMOGLOBIN A1c (test code = 35281) 5.5 % Robert CaliLIPID [id number] 00:00:00* Test Item Value Reference Range Interpretation Comme nts CHOLESTEROL (test code = 2210) 181 MG/DL TRIGLYCERIDES (test code = 2232) 81 MG/DL HDL CHOLESTEROL (test code = 2220) 46 MG/DL CALC LDL CHOL (test code = 2237) 117 MG/DL RISK RATIO LDL/HDL (test cod e = 2238) 2.54 RATIO Robert CaliCOMPREHENSIVE METABOLIC [id number] 00:00:00* Test Item Value Reference Range Interpretation Comme nts GLUCOSE (test code = 2217) 102 MG/DL BUN (test code = 2208) 10 MG/DL CREATININE (test code = 2214) 0.67 MG/DL eGFR AMER. (test cod e = 54445) 126 ML/MIN/1.73 eGFR NON- AMER. (test code = 38698) 108 ML/MIN/1.73 CALC BUN/CREAT (test code = [...] (test code = 2219) 18 U/L Robert [id number] 00:00:00* Test Item Value Reference Range Interpretation Comme nts TSH, THIRD GENERATION (test code = 2821) 1.140 UIU/ML Robert CaliVITAMIN D, 25 [id number] 00:00:00* Test Item Value Reference Range Interpretation Comme nts VITAMIN D, 25 OH (test code = 4958) 17 NG/ML Robert CaliCBC W/AUTO [id number] 00:00:00* Test Item Value Reference Range Interpretation [...] ABS NUCLEATED RBCS (test cod e = 76662) 0.00 K/UL Robert CaliHEMOGLOBIN [id number] 00:00:00* Test Item Value Reference Range Interpretation Comme nts HEMOGLOBIN A1c (test code = 79034) 5.5 % Robert CaliLIPID [id number] 00:00:00* Test Item Value Reference Range Interpretation Comme nts CHOLESTEROL (test code = 2210) 181 MG/DL TRIGLYCERIDES (test code = 2232) 81 MG/DL HDL CHOLESTEROL (test code = 2220) 46 MG/DL CALC LDL CHOL (test code = 2237) 117 MG/DL RISK RATIO LDL/HDL (test cod e = 2238) 2.54 RATIO Robert CaliCOMPREHENSIVE METABOLIC [id number] 00:00:00* Test Item Value Reference Range Interpretation Comme nts GLUCOSE (test code = 2217) 102 MG/DL BUN (test code = 2208) 10 MG/DL CREATININE (test code = 2214) 0.67 MG/DL eGFR AMER. (test cod e = 60467) 126 ML/MIN/1.73 eGFR NON- AMER. (test code = 11104) 108 ML/MIN/1.73 CALC BUN/CREAT (test code = [...] (test code = 2219) 18 U/L Robert [id number] 00:00:00* Test Item Value Reference Range Interpretation Comme [facility] TSH, THIRD GENERATION (test code = 2821) 1.140 UIU/ML Robert CaliVITAMIN D, 25 [id number] 00:00:00* Test Item Value Reference Range Interpretation Comme [facility] VITAMIN D, 25 OH (test code = 4958) 17 NG/ML Robert CaliCBC W/AUTO [id number] 00:00:00* Test Item Value Reference Range Interpretation Comme [facility] WBC (test code = 1001) 7.2 K/UL [...] ABS NUCLEATED RBCS (test cod e = 18333) 0.00 K/UL Robert CaliHEMOGLOBIN [id number] 00:00:00* Test Item Value Reference Range Interpretation Comme nts HEMOGLOBIN A1c (test code = 18343) 5.5 % Robert CaliLIPID [id number] 00:00:00* Test Item Value Reference Range Interpretation Comme nts CHOLESTEROL (test code = 2210) 181 MG/DL TRIGLYCERIDES (test code = 2232) 81 MG/DL HDL CHOLESTEROL (test code = 2220) 46 MG/DL CALC LDL CHOL (test code = 2237) 117 MG/DL RISK RATIO LDL/HDL (test cod e = 2238) 2.54 RATIO Robert CaliCOMPREHENSIVE METABOLIC [id number] 00:00:00* Test Item Value Reference Range Interpretation Comme nts GLUCOSE (test code = 2217) 102 MG/DL BUN (test code = 2208) 10 MG/DL CREATININE (test code = 2214) 0.67 MG/DL eGFR AMER. (test cod e = 12828) 126 ML/MIN/1.73 eGFR NON- AMER. (test code = 28154) 108 ML/MIN/1.73 CALC BUN/CREAT (test code = 2234) 15 RATIO SODIUM (test code = 223) 140 MEQ/L POTASSIUM (test code = 2228) 4.7 MEQ/L CHLORIDE (test code = 2215) 106 MEQ/L CARBON DIOXIDE (test code = 2206) 23 MEQ/L CALCIUM (test code = 2209) 9.1 MG/DL PROTEIN, TOTAL (test code = 2228) 6.9 G/DL ALBUMIN (test code = 2201) 4.0 G/DL CALC GLOBULIN (test code = 2240) 2.9 G/DL CALC A/G RATIO (test code = 2234) 1.4 RATIO BILIRUBIN, TOTAL (test code = 2206) <0.2 MG/DL ALKALINE PHOSPHATASE (test code = 2203) 127 U/L AST (test code = 2217) 18 U/L ALT (test code = 2218) 18 U/L Robert Arnol [id number] 00:00:00* Test Item Value Reference Range Interpretation Comme [facility] TSH, THIRD GENERATION (test code = 2821) 1.140 UIU/ML Robert Ambrose VirajVITAMIN D, 25 [id number] 00:00:00* Test Item Value Reference Range Interpretation Comme [facility] VITAMIN D, 25 OH (test code = 4958) 17 NG/ML Robert Ambrose VirajCBC W/AUTO [id number] 00:00:00* Test Item Value Reference Range Interpretation Comme [facility] WBC (test code = 1001) 7.2 K/UL [...] ABS NUCLEATED RBCS (test cod e = 58975) 0.00 K/UL Robert CaliHEMOGLOBIN [id number] 00:00:00* Test Item Value Reference Range Interpretation Comme nts HEMOGLOBIN A1c (test code = 36482) 5.5 % Robert CaliLIPID [id number] 00:00:00* Test Item Value Reference Range Interpretation Comme nts CHOLESTEROL (test code = 2210) 181 MG/DL TRIGLYCERIDES (test code = 2232) 81 MG/DL HDL CHOLESTEROL (test code = 2220) 46 MG/DL CALC LDL CHOL (test code = 2237) 117 MG/DL RISK RATIO LDL/HDL (test cod e = 2238) 2.54 RATIO Robert CaliCOMPREHENSIVE METABOLIC [id number] 00:00:00* Test Item Value Reference Range Interpretation Comme nts GLUCOSE (test code = 2217) 102 MG/DL BUN (test code = 2208) 10 MG/DL CREATININE (test code = 2214) 0.67 MG/DL eGFR AMER. (test cod e = 95085) 126 ML/MIN/1.73 eGFR NON- AMER. (test code = 77287) 108 ML/MIN/1.73 CALC BUN/CREAT (test code = [...] (test code = 2219) 18 U/L Robert [id number] 00:00:00* Test Item Value Reference Range Interpretation Comme [facility] TSH, THIRD GENERATION (test code = 2821) 1.140 UIU/ML Robert CaliVITAMIN D, 25 [id number] 00:00:00* Test Item Value Reference Range Interpretation Comme [facility] VITAMIN D, 25 OH (test code = 4958) 17 NG/ML Robert CaliCBC W/AUTO [id number] 00:00:00* Test Item Value Reference Range Interpretation Comme [facility] WBC (test code = 1001) 7.2 K/UL [...] ABS NUCLEATED RBCS (test cod e = 07930) 0.00 K/UL Robert CaliHEMOGLOBIN [id number] 00:00:00* Test Item Value Reference Range Interpretation Comme nts HEMOGLOBIN A1c (test code = 30778) 5.5 % Robert CaliLIPID [id number] 00:00:00* Test Item Value Reference Range Interpretation Comme nts CHOLESTEROL (test code = 2210) 181 MG/DL TRIGLYCERIDES (test code = 2232) 81 MG/DL HDL CHOLESTEROL (test code = 2220) 46 MG/DL CALC LDL CHOL (test code = 2237) 117 MG/DL RISK RATIO LDL/HDL (test cod e = 2238) 2.54 RATIO Robert CaliCOMPREHENSIVE METABOLIC [id number] 00:00:00* Test Item Value Reference Range Interpretation Comme nts GLUCOSE (test code = 2217) 102 MG/DL BUN (test code = 2208) 10 MG/DL CREATININE (test code = 2214) 0.67 MG/DL eGFR AMER. (test cod e = 31451) 126 ML/MIN/1.73 eGFR NON- AMER. (test code = 04915) 108 ML/MIN/1.73 CALC BUN/CREAT (test code = [...] (test code = 2219) 18 U/L Robert [id number] 00:00:00* Test Item Value Reference Range Interpretation Comme nts TSH, THIRD GENERATION (test code = 2821) 1.140 UIU/ML Robert Ambrose AustinLIPID PROFILE (CORONARY RISK)2018-07-20 07:27:00* Test Item Value [...] mg/dL VERY HIGH.........>/= 190 mg/dL Comments to Milling Planer Operator: ADD TO AM LABSLIPID PROFILE (CORONARY RISK)2018-07-20 07:17:00* Test Item Value Reference Range Interpretation Comme [facility] TRIGLYCERIDES (test code = TRIG) 143 MG/DL TRIGLYCERIDES REFERENCE RANGE:Normal: <150 mg/dLBorderline High: 150-199 mg/dLHigh: 200-499 mg/dLVery High: >=500 mg/dL CHOLESTEROL (test code = CHOL) 190 MG/DL <200 HDL CHOLESTEROL (test code = HDL) 41 MG/DL 40-59 N LIPOPROTEIN LDL (test code = LDL) MG/DL 0-99 Comments to Milling Planer Operator: ADD TO AM LABSPROTHROMBIN [id number] 06:24:00* Test Item Value Reference Range Interpretation Comme [facility] PROTHROMBIN TIME PATIENT (test code = PTP) [...] systemic embolism. 3.0 - 4.5 Comments to Milling Planer Operator: NURSE WILL BRING SPECIMEN TO LABPTT ACTIVATED 2018-07-20 06:24:00* Test Item Value Reference Range Interpretation Comme nts PTT ACTIVATED (test code = APTT) 29.3 SECONDS 22.0-33.0 N Comments to Milling Planer Operator: NURSE WILL BRING SPECIMEN TO LABBASIC [...] CA) 9.6 MG/DL 8.4-10.2 N Comments to Milling Planer Operator: NURSE WILL BRING SPECIMEN TO LAB Comments to Milling Planer Operator: NURSE WILL BRING SPECIMEN TO [id number] 06:13:00* Test Item Value Reference Range Interpretation Comme nts MAGNESIUM (test code = MAG) 2.2 MG/DL 1.6-2.3 N Comments to Milling Planer Operator: NURSE WILL BRING SPECIMEN TO LAB Comments to Milling Planer Operator: NURSE WILL BRING SPECIMEN TO LABCBC W/AUTO [id number] 06:02:00 * Test Item Value Reference Range [...] code = NRBC#) 0.00 K/mm3 0.0-0.1 N MRI BRAIN W/O & W/DYEMRI BRAIN W/O & W/DYE"
[2024-02-08] MEDS ORDERED: ASPIRIN 81 MG CHEWABLE TABLET ONE (16:47)
[2024-02-08 17:12] LABS: Absolute Eosinophils 0.2 K/uL (0-0.5); Absolute Lymphocytes (CBC) 1.5 K/uL (0.7-4.9); Absolute Monocytes 0.3 K/uL (0.1-1.3); Basophils % 0.8 % (0-1.3); Eosinophils % 3.6 % (0-4.4); Hematocrit 31.4 % (36.0-45.0); Hemoglobin 9.9 g/dL (12.0-15.0); MCH 24.2 pg (27.0-35.0); MCHC 31.5 g/dL (32.0-36.0); MCV 76.6 fL (80-100); MPV 8.7 fL (7.6-11.3); Monocytes % 4.4 % (3.3-12.3); Neutrophils % 66.2 % (41.7-73.7); Platelets 254 thou/uL (152-406); RBC Red Blood Cell Count 4.09 M/uL (3.86-4.86); Red Cell Distribution Width 20.4 % (12.1-15.2)
[2024-02-08 17:15] LABS: PT Prothrombin Time 11.8 SECONDS (9.4-12.5); Protime INR 1.06
[2024-02-08 17:21] LABS: Specific Gravity 1.026 (1.005-1.030); Urine Bacteria None Seen /HPF (<20); Urine Bilirubin NEGATIVE (Negative); Urine Blood 1+ (Negative); Urine Clarity Turbid (Clear); Urine Color Yellow (Yellow); Urine Culture Reflex Order NOT NEEDED; Urine Glucose NEGATIVE (Negative); Urine Ketones NEGATIVE (Negative); Urine Microscopic Reflex YN ORDER UMIC; Urine Mucus Slight /HPF (None Seen); Urine Nitrite NEGATIVE (Negative); Urine Protein TRACE (Negative); Urine Urobilinogen Normal (Normal); Urine WBC <5 /HPF (<5); Urine pH 5.5 (5.0-7.0)
[2024-02-08 17:28] LABS: SARS-CoV-2 Antigen CONTROL BLUE LINE VIS/BG OK; SARS-CoV-2 Antigen Rapid Res Negative (Negative)
[2024-02-08 17:33] LABS: ALT/SGPT 27 U/L (13-56); AST/SGOT 18 U/L (15-37); Albumin 3.4 g/dL (3.4-5.0); Albumin/Globulin Ratio 1.1 (1.1-1.8); Alkaline Phosphatase 123 U/L (45-117); Anion Gap 8.3 mEq/L (5.0-15.0); BUN Blood Urea Nitrogen 10 mg/dL (7-18); Bicarbonate 26 mEq/L (21-32); Bilirubin Total 0.2 mg/dL (0.2-1.0); Glomerular Filtration Rate 108 ml/min (=/>90); Glucose Level 126 mg/dL (74-106); Lipase 25 U/L (13-75); Magnesium 2.1 mg/dL (1.6-2.4); NT PRO-BNP 26 pg/mL (<125); Potassium 3.3 mEq/L (3.5-5.1); Protein, Total 6.4 g/dL (6.4-8.2); Sodium Level 139 mEq/L (136-145); Troponin High Sensitivity 3.6 pg/mL (<58.9)
[2024-02-08 17:37] LABS: Bilirubin Direct < 0.2 mg/dL (0-0.2)
--- NOTE | 2024-02-08 17:42 | RAD REPORT ---
EXAMINATION: ONE VIEW CHEST XR CLINICAL INDICATION: Female, 48 years old.,CHEST PAIN TECHNIQUE: Frontal chest projection is submitted. Examination is limited by patient positioning and t echnique. COMPARISON: 11/16/2023 FINDINGS: Underexposure limits evaluation. The lungs are also hypoinflated, but overall clear. Elevation of the right hemidiaphragm again seen. No pneumothorax or sizable effusion. The heart is normal in size. Mediastinal contours are unremarkable. IMPRESSION: No acute intrathoracic abnormalities.
--- NOTE | 2024-02-08 17:49 | EDPHYS ---
Physician Documentation [facility] Name: Shivani Lagunas Age: 48 yrs Sex: Female : 1975 Arrival Date: 02/08/2024 Time: 16:17 Bed 8 Private MD: ED Physician Bal Dowling HPI: 02/07 16:54 This 48 yrs old Female presents to ER via Ambulatory with complaints of Chest lori Tightness, Headache. 16:54 The patient or guardian reports chest pain that is located primarily in the anterior lori chest wall, bilaterally. Onset: 2 day(s) ago. The pain does not radiate. Associated signs and symptoms: Pertinent positives: cough. The chest pain is described as aching. Severity of pain: At its worst the pain was mild in the emergency department the pain is unchanged. The patient has experienced similar episodes in the past, several times. 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 - Infectious Disease History:: Denies. - Social history:: Smoking status: Patient denies any tobacco usage or history of. - Family history:: not pertinent. ROS: 16:54 Constitutional: Negative for fever, chills, and weight loss, Eyes: Negative for injury, lori pain, redness, and discharge, ENT: Negative for injury, pain, and discharge, Neck: Negative for injury, pain, and swelling, Respiratory: Negative for shortness of breath, cough, wheezing, and pleuritic chest pain, Abdomen/GI: Negative for abdominal pain, nausea, vomiting, diarrhea, and constipation, Back: Negative for injury and pain, : Negative for injury, bleeding, discharge, and swelling, MS/Extremity: Negative for injury and deformity, Skin: Negative for injury, rash, and discoloration, Neuro: Negative for headache, weakness, numbness, tingling, and seizure, Psych: Negative for depression, anxiety, suicide ideation, homicidal ideation, and hallucinations, Allergy/Immunology: Negative for hives, rash, and allergies, Endocrine: Negative for neck swelling, polydipsia, polyuria, polyphagia, and marked weight changes, Hematologic/Lymphatic: Negative for swollen nodes, abnormal bleeding, and unusual bruising, 16:54 Cardiovascular: Positive for chest pain, of the chest, palpitations, Exam: 16:54 Constitutional: This is a well developed, well nourished patient who is awake, alert, lori and in no acute distress. Head/Face: Normocephalic, atraumatic. Eyes: Pupils equal round and reactive to light, extra-ocular motions intact. Lids and lashes normal. Conjunctiva and sclera are non-icteric and not injected. Cornea within normal limits. Periorbital areas with no swelling, redness, or edema. ENT: Nares patent. No nasal discharge, no septal abnormalities noted. Tympanic membranes are normal and external auditory canals are clear. Oropharynx with no redness, swelling, or masses, exudates, or evidence of obstruction, uvula midline. Mucous membranes moist. Neck: Trachea midline, no thyromegaly or masses palpated, and no cervical lymphadenopathy. Supple, full range of motion without nuchal rigidity, or vertebral point tenderness. No Meningismus. Chest/axilla: Normal chest wall appearance and motion. Nontender with no deformity. No lesions are appreciated. Cardiovascular: Regular rate and rhythm with a normal S1 and S2. No gallops, murmurs, or rubs. Normal PMI, no JVD. No pulse deficits. Respiratory: Lungs have equal breath sounds bilaterally, clear to auscultation and percussion. No rales, rhonchi or wheezes noted. No increased work of breathing, no retractions or nasal flaring. Abdomen/GI: Soft, non-tender, with normal bowel sounds. No distension or tympany. No guarding or rebound. No evidence of tenderness throughout. Back: No spinal tenderness. No costovertebral tenderness. Full range of motion. Skin: Warm, dry with normal turgor. Normal color with no rashes, no lesions, and no evidence of cellulitis. MS/ Extremity: Pulses equal, no cyanosis. Neurovascular intact. Full, normal range of motion., bilateral aka Neuro: Awake and alert, GCS 15, oriented to person, place, time, and situation. Cranial nerves II-XII grossly intact. Motor strength 5/5 in all extremities. Sensory grossly intact. Cerebellar exam normal. Normal gait. Psych: Awake, alert, with orientation to person, place and time. Behavior, mood, and affect are within normal limits. 16:54 Musculoskeletal/extremity: ROM: intact in all extremities, full active range of motion, Circulation is intact in all extremities. Sensation intact. Compartment Syndrome exam of affected extremity: is normal. Weight bearing: able to fully bear weight, DVT Exam: No signs of deep vein thrombosis. no pain, no swelling, no tenderness, negative Homans' sign noted on exam, no appreciated bluish discoloration, no erythema, no increased warmth, Vital Signs: 16:26 BP 169 / 95; Pulse 90; Resp 16; Temp 98; Pulse Ox 95% ; Weight 97.52 kg; Height 5 ft. 6 db in. ; Pain 8/10; 16:48 BP 151 / 80; Pulse 87; Resp 18; Pulse Ox 95% on R/A; ld1 18:05 BP 153 / 83; Pulse 64; Resp 18; Pulse Ox 99% on R/A; ld1 16:26 Body Mass Index 34.70 (97.52 kg, 167.64 cm) db 16:26 Pain Scale: Adult db MDM: 16:28 Medical Screening Exam initiated lori 16:55 Differential diagnosis: abnormal EKG, acute myocardial infarction, acute pericarditis, lori anxiety, coronary artery disease chest wall pain, congestive heart failure Cholelithiasis costochondritis, esophagitis, gastritis, gastroesophageal reflux disease (GERD), herpes zoster, pancreatitis, pleurisy, pneumonia, pulmonary embolus, stable angina, thoracic aortic disection, unstable angina. HEART Score: History: Slightly Suspicious (0), ECG: Non specific repolarization disturbance / LBTB / PM (1), Age: > 45 and < 65 years (1), Risk Factors: > or = 3 Risk factors for atherosclerotic disease (2), [Hypertension] [+ Family HX] [Obesity] Troponin: < or = 1 x Normal Limit (0). The patient was given aspirin in the Emergency Department. AXEL Risk Score: 1 - Three or more CAD risk factors, TOTAL SCORE = 1. Data reviewed: vital signs, nurses notes, lab test result(s), EKG, radiologic studies. Consideration of Admission/Observation Escalation of care including admission/observation considered. I considered the following discharge prescriptions or medication management in the emergency department Medications were administered in the Emergency Department. See MAR. Independent interpretation of the following test(s) in the Emergency Department EKG: See my EKG interpretation above. Test considered but Not performed: Ultrasound no 2 d echo. 17:45 Care significantly affected by the following chronic conditions: Hypertension, lori Congestive Heart Failure, Obesity, bipolar, anemia, schizo. Counseling: I had a detailed discussion with the patient and/or guardian regarding the historical points, exam findings, and any diagnostic results supporting the discharge/admit diagnosis, lab results, radiology results, the need for outpatient follow up, for definitive care, a oracle business intelligence developer, a family practitioner. 02/07 16:31 Order name: Basic Metabolic Panel; Complete Time: 17:47 [facility] 02/07 16:31 Order name: CBC with Diff [facility] 02/07 16:31 Order name: LFT's; Complete Time: 17:47 [facility] 02/07 16:31 Order name: Magnesium; Complete Time: 17:47 [facility] 02/07 16:31 Order name: NT PRO-BNP; Complete Time: 17:47 [facility] 02/07 16:31 Order name: PT-INR; Complete Time: 17:28 [facility] 02/07 16:31 Order name: Troponin HS; Complete Time: 17:47 [facility] 02/07 16:31 Order name: Lipase; Complete Time: 17:47 [facility] 02/07 16:31 Order name: Urinalysis w/ reflexes; Complete Time: 17:28 [facility] 02/07 16:53 Order name: Flu; Complete Time: 17:34 [facility] 02/07 16:53 Order name: SARS RAPID; Complete Time: 17:34 [facility] 02/07 16:53 Order name: Strep; Complete Time: 17:34 [facility] 02/07 17:31 Order name: Throat Culture EDAZ 02/07 16:31 Order name: XRAY Chest (1 view); Complete Time: 17:47 [facility] 02/07 16:31 Order name: EKG; Complete Time: 16:31 [facility] 02/07 16:31 Order name: Cardiac monitoring; Complete Time: 16:47 [facility] 02/07 16:31 Order name: EKG - Nurse/Tech; Complete Time: 16:47 [facility] 02/07 16:31 Order name: IV Saline Lock; Complete Time: 17:07 [facility] 02/07 16:31 Order name: Labs collected and sent; Complete Time: 17:07 [facility] 02/07 16:31 Order name: O2 Per Protocol; Complete Time: 16:47 [facility] 02/07 16:31 Order name: O2 Sat Monitoring; Complete Time: 16:47 [facility] 02/07 17:48 Order name: PO challenge: juice; Complete Time: 17:53 lori Administered Medications: 17:07 Drug: Aspirin PO Chewable Tablet 81 mg PO once Route: PO; ld1 18:00 Follow up: Response: No adverse reaction ld1 18:04 Drug: Potassium PO Effervescent Tablet 25 mEq PO once; dissolve in 4 ounces of water or ld1 juice Route: PO; 18:05 Follow up: Response: No adverse reaction ld1 Disposition Summary: 02/08/24 17:48 Discharge Ordered Notes: Location: Home lori Problem: new lori Symptoms: have improved lori Condition: Stable lori Diagnosis - Chest pain, unspecified lori - Cough lori - Iron deficiency anemia, unspecified lori - Hypokalemia lori Followup: lori - With: Private Physician - When: 2 - 3 days - Reason: Recheck today's complaints, Continuance of care, Re-evaluation by your physician Followup: lori - With: Sony Guillermo MD - When: 2 - 3 days - Reason: Recheck today's complaints, Re-evaluation by your physician Discharge Instructions: - Discharge Summary Sheet lori - Iron Deficiency Anemia, Adult lori - Anemia lori - Nonspecific Chest Pain, Adult lori - Iron-Rich Diet lori - Potassium Content of Foods lori - Nonspecific Chest Pain, Adult, [id number] lori - Aspirin and Your Heart lori - Cough, Adult lori - Hypokalemia [facility] Forms: - Medication Reconciliation Form [facility] - Antibiotic Education lori - Prescription Opioid Use lori - Patient Portal Instructions [facility] - Leadership Thank You Letter [facility] Prescriptions: - Ferrous Sulfate 325 mg (65 mg Iron) Oral tablet - take 1 tablet ORAL route every 12 hours; 60 tablet; Refills: 0, Product [facility] Selection Permitted - Pepcid 20 mg Oral tablet - take 1 tablet ORAL route every 12 hours for 21 days; 42 tablet; Refills: 0, lori Product Selection Permitted Signatures: Dispatcher [employer] Bal Noel MD MD cha Sims, Lauren RN RN ld1 Autumn Peres RN RN db
--- NOTE | 2024-02-08 17:49 | ER ---
Nurse's Notes [facility] Name: Shivani Lagunas Age: 48 yrs Sex: Female : 1975 Arrival Date: 02/08/2024 Time: 16:17 Bed 8 Private MD: Diagnosis: Chest pain, unspecified;Cough;Iron deficiency anemia, unspecified;Hypokalemia Presentation: 02/07 16:25 Chief complaint: Patient states: CHEST CONGESTION WITH PRESSURE, NAUSEA AND HEADACHE db STARTED YESTERDAY. 16:26 Coronavirus screen: Client denies travel out of the [place] in the last 14 days. At this db time, the client does not indicate any symptoms associated with coronavirus-19. Ebola Screen: Patient negative for fever greater than or equal to 101.5 degrees Fahrenheit, and additional compatible Ebola Virus Disease symptoms Patient denies exposure to infectious person. Patient denies travel to an Ebola-affected area in the 21 days before illness onset. No symptoms or risks identified at this time. Initial Sepsis Screen: Does the patient meet any 2 criteria? No. Patient's initial sepsis screen is negative. Does the patient have a suspected source of infection? No. Patient's initial sepsis screen is negative. Risk Assessment: Do you want to hurt yourself or someone else? Patient reports no desire to harm self or others. Onset of symptoms was February 08, 2024. 16:26 Acuity: ALICIA 3 db 16:26 Method Of Arrival: Ambulatory db Triage Assessment: 16:27 General: Appears in no apparent distress. uncomfortable, Behavior is calm, cooperative. db Pain: Complains of pain in head. Neuro: Level of Consciousness is awake, alert, obeys commands, Oriented to person, place, time, situation. Cardiovascular: Reports chest pain. Respiratory: Reports cough that is. 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 - Infectious Disease History:: Denies. - Social history:: Smoking status: Patient denies any tobacco usage or history of. - Family history:: not pertinent. Screenin:48 [facility] ED Fall Risk Assessment (Adult) History of falling in the last 3 months, ld1 including since admission No falls in past 3 months (0 pts) Confusion or Disorientation No (0 pts) Intoxicated or Sedated No (0 pts) Impaired Gait No (0 pts) Mobility Assist Device Used No (0 pt) Altered Elimination No (0 pt) Score/Fall Risk Level 0 - 2 = Low Risk Oriented to surroundings, Maintained a safe environment, Educated pt \T\ family on fall prevention, incl call for assistance when getting out of bed, Assessed \T\ reinforced patient's understanding of fall precautions, Provided non-skid footwear, Hourly rounding (assess needs \T\ fall precautionary measures) done, Used ambulatory aids as needed (educated on \T\ assisted with), Used gait belt as appropriate. Abuse screen: Denies threats or abuse. Denies injuries from another. Nutritional screening: No deficits noted. Tuberculosis screening: No symptoms or risk factors identified. Assessment: 16:48 General: Appears in no apparent distress. comfortable, Behavior is calm, cooperative, ld1 appropriate for age. Pain: Complains of pain in face and chest Pain does not radiate. Pain currently is 8 out of 10 on a pain scale. Quality of pain is described as throbbing, Pain began 2-3 days ago. Is intermittent. Neuro: Level of Consciousness is awake, alert, obeys commands, Oriented to person, place, time, situation, Appropriate for age. Cardiovascular: Capillary refill < 3 seconds Patient's skin is warm and dry. Rhythm is sinus rhythm. Respiratory: Airway is patent Respiratory effort is even, unlabored. GI: Abdomen is round non-distended. : No signs and/or symptoms were reported regarding the genitourinary system. EENT: No signs and/or symptoms were reported regarding the EENT system. Derm: No signs and/or symptoms reported regarding the dermatologic system. 18:05 Reassessment: Patient appears in no apparent distress at this time. No changes from ld1 previously documented assessment. Patient and/or family updated on plan of care and expected duration. Pain level reassessed. Patient is alert, oriented x 3, equal unlabored respirations, skin warm/dry/pink. Vital Signs: 16:26 BP 169 / 95; Pulse 90; Resp 16; Temp 98; Pulse Ox 95% ; Weight 97.52 kg; Height 5 ft. 6 db in. ; Pain 8/10; 16:48 BP 151 / 80; Pulse 87; Resp 18; Pulse Ox 95% on R/A; ld1 18:05 BP 153 / 83; Pulse 64; Resp 18; Pulse Ox 99% on R/A; ld1 16:26 Body Mass Index 34.70 (97.52 kg, 167.64 cm) db 16:26 Pain Scale: Adult db ED Course: 16:18 Patient arrived in ED. im 16:27 Triage completed. db 16:27 Arm band placed on Patient placed in an exam room. db 16:28 Bal Dowling MD is Attending Physician. [facility] 16:48 Patient has correct armband on for positive identification. Placed in gown. Bed in low ld1 position. Call light in reach. Side rails up X2. case monitor on. Pulse ox on. NIBP on. Door closed. Noise minimized. Warm blanket given. 16:48 No provider procedures requiring assistance completed. Patient maintains SpO2 ld1 saturation greater than 95% on room air. 16:49 Nanette Longo, RN is Primary Nurse. ld1 17:07 Strep Sent. ld1 17:07 SARS RAPID Sent. ld1 17:07 Flu Sent. ld1 17:07 Inserted saline lock: 22 gauge in right antecubital area, using aseptic technique. ld1 Blood collected. Flushed with 10 mL NS. 17:08 XRAY Chest (1 view) In Process Unspecified. EDMS 17:48 Sony Guillermo MD is Referral Physician. [facility] 18:05 IV discontinued, intact, bleeding controlled, No redness/swelling at site. ld1 Administered Medications: 17:07 Drug: Aspirin PO Chewable Tablet 81 mg PO once Route: PO; ld1 18:00 Follow up: Response: No adverse reaction ld1 18:04 Drug: Potassium PO Effervescent Tablet 25 mEq PO once; dissolve in 4 ounces of water or ld1 juice Route: PO; 18:05 Follow up: Response: No adverse reaction ld1 Medication: 16:48 VIS not applicable for this client. ld1 Outcome: 17:48 Discharge ordered by . lori 18:05 Discharged to home ambulatory, ld1 18:05 Condition: stable 18:05 Discharge instructions given to patient, Instructed on discharge instructions, follow up and referral plans. medication usage, Demonstrated understanding of instructions, follow-up care, medications, Prescriptions given X 2, 18:06 Patient left the ED. ld1 Signatures: Dispatcher [employer] Bal Noel MD MD cha Sims, Lauren, RN RN ld1 Autumn Peres RN RN db Rohini Garcia
[2024-02-08] MEDS ORDERED: POTASSIUM 25 MEQ EFFERV TAB ONE (17:56)
[2024-02-08 18:51] VITALS: TEMP 98; O2SAT 95
[2024-02-08 18:54] LABS: Anisocytosis 1+; Blood Morphology Comment NOTED (NOT SEEN); Microcytosis 1+; Platelet Estimate ADEQ; White Blood Cell Scan OK (OK)
[2024-02-08 18:57] VITALS: BP 151/80
--- NOTE | 2024-02-11 11:18 | EKG ---
Test Date: 2024-02-08 Test Time: 16:41:05 Manufacturing Project Engineer: ANTELMO MEASUREMENT RESULTS: Intervals: Rate: 86 AR: 158 QRSD: 104 QT: 394 QTc: 471 [place]: P: 47 AR: 158 QRS: 16 T: 26 INTERPRETIVE STATEMENTS: Normal sinus rhythm Normal ECG Compared to ECG 11/16/2023 19:47:49 No significant changes Electronically Signed On 02-11-24 11:12:45 SMOKE JUMPER by Ruperto Boone
== END 2024-02-08 18:06 | disposition home or self-care (01) ==
LOC: ER 16:17
DX: R07.89 Other chest pain (principal); R05.9 Cough, unspecified; D50.9 Iron deficiency anemia, unspecified; E87.6 Hypokalemia; I10 Essential (primary) hypertension; I50.9 Heart failure, unspecified; Z11.52 Encounter for screening for COVID-19
CPT/HCPCS: 36415; 71045; 80048; 80076; 81001; 83690; 83735; 83880; 84484; 85025; 85610; 87070; 87081; 87804; 87811; 93005; 99284

== ENCOUNTER 2024-02-13 11:10 | Emergency (ER) | payer OTHER, SELFPAY ==
--- OUTSIDE RECORDS SUMMARY | 2024-02-13 11:28 | XMS REPORT | Continuity of Care Document ---
Author Name Unknown Address [address] [facility] [address] [place] [address] [facility] thconnect Address [address] [facility] [address] [place] [address] Care Team Providers Care Mission Analyst Name Role Phone Reji Montiel, [facility] Primary Care Physician Jae Holloway Attending Clinician Unavailable Doctor Unassigned, [place] Attending Clinician U Tavon Ruth MD Attending Clinician [phone] ALESHA CROWE Attending Clinician Unavailable Elidia Cordero MD Attending Clinician [phone] Dominic Keita MD Attending Clinician [phone] Jose Westbrook MD Attending Clinician [phone] JOSE WESTBROOK Attending Clinician Unavailable FARZANA SAUCEDA Attending Clinician Unavailable MARYSOL PABON Attending Clinician Unavailable MARYSOL PABON Attending Clinician Unavailable Marysol Pabon DO Attending Clinician [phone] Rhiannon Vizcarra MD Attending Clinician + [phone] Dominic Keita MD Attending Clinician [phone] DAVIDSON SUTHERLAND Attending Clinician Unavailable Consuelo BAUER, Elidia Gamble Attending Clinician [phone] EMILIA SNOWDEN Attending Clinician Annia vailable Doctor Unassigned, [place] Attending Clinician U SARA Day Attending Clinician UnavailSAAR Dorado Attending Clinician UnavailJewel Forbes MD Attending Clinician + [phone] [facility] Attending Clinician Unavailable JEWEL CUNHA Attending Clinician Unavaila JENNY Norton Attending Clinician Unavailable JENNY ARRIAGA Attending Clinician Unavailable Dexter Dias MD Attending Clinician [phone] Davidson Sutherland MD Attending Clinician [phone] [facility] Attending Clinician Unavailable DEXTER DIAS Attending Clinician Unavailable GC_GCBZW_Kadiyala_S Attending Clinician Unavaila ONEIDA Del Rosario Attending Clinician Unavailable DOMINIC KEITA Attending Clinician UnavailHunter Sahni MD Attending Clinician [phone] iTng Grissom MD Attending Clinician [phone] RADIOLOGY Attending Clinician Unavailable DORA NEWMAN Attending Clinician Unavailable Dora Newman NP Attending Clinician + [phone] Kath Vences MD Attending Clinician + [phone] Pob, [facility] Main Attending Clinician UnavailKATH Grady Attending Clinician Unavailchris russell Pathology Attending Clinician Unavailable IGOR SAAVEDRA Attending Clinician Unavaila HILARY Ramires Attending Clinician UnavailHILARY Conrad Attending Clinician UnavailIgor pfeiffer Rai, MD Attending Clinician Unava ilGIGI Juarez Attending Clinician Unavailable Gigi Monroy DO Attending Clinician [phone] Zane Martinez MD Attending Clinician [phone] Marycruz VAZQUEZ, Deonte Attending Clinician Unavailable UNKNOWN, ATTENDING Attending Clinician UnavailSALLY Lara Attending Clinician Unavail able SALLY MITCHELL Attending Clinician Unavail able Salbador Lockwood MD Attending Clinician [phone] SALBADOR LOCKWOOD Attending Clinician Unavailable HALIMA CONNOR Attending Clinician Unavailab Halima Choi DO Attending Clinician [phone] ROBERT NOWAK Attending Clinician Unavail able Patti Hutton Attending Clinician [phone] CRISTO MARTINEZ Attending Clinician Unavail able JEWEL MORAES Attending Clinician UnaKATH Sen Attending Clinician Unav ANGELA Richardson Attending Clinician Unavailab RHIANNON Durant Admitting Clinician Unavailable GC_GCBZW_Kadiyala_S Admitting Clinician Unavaila DOMINIC Watts Admitting Clinician Unavailchris Keita MD, Dominic Admitting Clinician [phone] Payers Payer Name Policy Type Policy Number Effective Date Expirati on Date Source [facility] [id number] 2023 00:00:00 [facility]LY [facility] THERAVECTYS [id number] 2022 00:00:00 MEDICAID SSI PENDING PENDING 2021 [...] blood loss Disease Active 10-19 00:00: 00 [facility] Gastroesop hageal reflux disease, unspecifie d whether esophagiti s present Gastroesop hageal reflux disease, unspecifie d whether esophagiti s present Disease Active 10-19 00:00: 00 [facility] Arrhythmia Arrhythmia Disease Active 10-18 00:00: 00 [facility] Anemia Anemia Disease Active 02-17 00:00: 00 [facility] Bipolar 1 disorder, depressed Bipolar 1 disorder, depressed Disease Active 2019-02 00:00: 00 [facility] Gout Gout Disease Active 08-17 00:00: 00 [facility] Severe headache Severe headache Disease Active 1998-02 00:00: 00 [facility] Insomnia disorder Insomnia disorder Disease Active 1989-02 00:00: 00 [facility] Anxiety Anxiety Disease Active 10-18 00:00: 00 [facility] No known active problems No known active problems Disease [facility] Constipate d Constipate d Problem [facility] Imaging of brain abnormal Abnormal brain scan Problem [facility] Seizure Seizure Problem [facility] Chronic intractabl e migraine without aura Chronic migraine without aura, intractabl e, without status migrainosu s Problem [facility] Skin sensation disturbanc e Facial tingling sensation Problem [facility] Magnetic resonance imaging of brain abnormal White matter abnormalit y on MRI of brain Problem [facility] Disorder of autonomic nervous system Autonomic dysfunctio n Problem [facility] Benign intracrani al hypertensi on Elevated intracrani al pressure Problem [facility] Myoclonus Myoclonic jerking Problem [facility] Cervical dystonia Cervical dystonia Problem [facility] Carpal tunnel syndrome Carpal tunnel syndrome, bilateral upper limbs Problem [facility] Peripheral neuropathy Peripheral neuropathy Problem [facility] Allergies, Adverse Reactions, Alerts Allergy Name Allergy Type Status Severity Reaction(s) Onset Date Inactive Date Treating Clinician Comments Source Sulfa Drugs (Not Checked) Propensi ty to adverse reaction to drug Active 2023-02 0-15 00:00: 00 Robert Cali Sulfa Antibiot ics - CLASS Propensi ty to adverse reaction to drug Active 5-10 00:00: 00 Robetr Cali Sulfa (Sulfona mide Antibiot ics) Propensi ty to adverse reaction s Active Hives 4-24 00:00: 00 [facility] SULFA (SULFONA MIDE ANTIBIOT ICS) Drug Class Active Hives 424 00:00: 00 [facility] SULFA (SULFONA MIDE ANTIBIOT ICS) Allergy to substanc e Active [facility] Substanc e with sulfonam chelo structur e and antibact erial mechanis m of action (substan ce) Substanc e with sulfonam chelo structur e and antibact erial mechanis m of action (substan ce) Active Unknown [facility] Social History Social Habit Start Date Stop Date Quantity Comments Source Gender identity [facility] Sexual orientation [facility] Sex Assigned At [facility] History of Tobacco Use [facility] History of Social function 2023-09-03 00:00:00 2023-09-03 00:00:00 [facility] Exposure to SARS-CoV-2 (event) 2022-02-05 00:00:00 2022-02-15 08:57:00 Not sure [facility] Tobacco use and exposure 2021-08-24 00:00:00 2021-08-24 00:00:00 Smokeless tobacco non-user [facility] Smoking Status Start Date Stop Date Source Never Smoker [facility] Medications Ordered Medication Name Filled Medication Name Start Date Stop Date Current Medication? Ordering Clinician Indication Dosage Frequency Signature (SIG) Comments Components Source busPIRone 30 mg tablet 2023-02 00:00: 00 Yes [id number] 30mg Take 1 tablet by mouth in the morning and 1 tablet in the evening. [facility] DULoxetine 60 mg capsule 2023-02 00:00: 00 Yes [id number] 60mg Take 1 capsule by mouth in the morning and 1 capsule in the evening. [facility] Venofer 200 mg iron/10 mL intravenous solution 2023-02 00:00: 00 Yes 10mg iron/10 mL Robert Cali traZODone 50 mg tablet 2023-02 00:00: 00 Yes [id number] Take 1-2 tablets daily at bedtime for sleep [facility] clonazePAM 1 mg tablet 2023-02 00:00: 00 Yes [id number] TAKE 1/2 TO 1 TABLET BY MOUTH ONCE DAILY NEEDED FOR SEVERE ANXIETY [facility] ketorolac 30 mg/mL (1 mL) injection solutionInj ect 1 mL every 6 hours by intramuscul ar route. ketorolac 30 mg/mL (1 mL) injection solutionInj ect 1 mL every 6 hours by intramuscul ar route. 2023-02 15:16: 58 No 1mL Q6H ketorolac 30 mg/mL (1 mL) injection solutionIn ject 1 mL every 6 hours by intramuscu lar route. [facility] traZODone 50 mg tablet 2023-02 00:00: 00 01-27 00:00 :00 No [id number] Take 1-2 tablets for sleep [facility] Cyclobenzap rine HCl 10 MG Cyclobenzap rine HCl 10 MG 2023-02 00:00: 00 No 1{table t_at_be dtime_a s_neede d} QD Cyclobenza amber HCl 10 MG Venofer 200 mg iron/10 mL intravenous solution 2023-02 00:00: 00 Yes 10mg iron/10 mL [facility] busPIRone 30 mg tablet 2023-02 00:00: 00 02-11 00:00 :00 No [id number] TAKE 1 TABLET BY MOUTH EVERY MORNING AND TAKE ONE TABLET BY MOUTH EVERY EVENING [facility] DULoxetine 60 mg capsule 2023-02 00:00: 00 02-11 00:00 :00 No [id number] TAKE 1 CAPSULE BY MOUTH 2 TIMES A DAY ( EVERY MORNING AND EVERY EVENING ) [facility] ibuprofen 800 mg tablet 2023-02 00:00: 00 Yes 1mg [facility] Cali Methocarbam ol 500 MG Methocarbam ol 500 MG 2023-02 00:00: 00 No 1.5{tab lets} BID Methocarba mol 500 MG Botox 200 UNIT Botox 200 UNIT 2023-02 0-30 00:00: 00 No Botox 200 UNIT ibuprofen 800 mg tablet 2023-02 0- 00:00: 00 Yes 1mg [facility] TRAZODONE 50 mg tablet 2023-02 0- 00:00: 00 01-20 00:00 :00 No [id number] TAKE 1 AND 1/2 TABLET BY MOUTH AT BEDTIME [facility] Vitamin D3 25 mcg (1,000 unit) tablet 2023-02 017 00:00: 00 Yes 1(1,000 unit) [facility]i diclofenac sodium 75 mg tablet,mikal yed release 2023-02 0-15 00:00: 00 Yes 1mg [facility] Cali clonazePAM 1 mg tablet 11-09 00:00: 00 01-24 00:00 :00 No [id number] TAKE 1/2 TO 1 TABLET BY MOUTH ONCE DAILY NEEDED FOR SEVERE ANXIETY [facility] lithium carbonate CR 450 mg SR tablet 904 00:00: 00 11-14 00:00 :00 No [id number] 900mg Take 2 tablets by mouth at bedtime. [facility] traZODone 50 mg tablet 8-07 00:00: 00 12-10 00:00 :00 No [id number] 75mg Take 1.5 tablets by mouth at bedtime for 90 days. [facility] busPIRone 30 mg tablet 09-02 00:00: 00 01-07 00:00 :00 No [id number] 30mg Take 1 tablet by mouth in the morning and 1 tablet in the evening. [facility] DULoxetine 60 mg capsule 09-02 00:00: 00 01-07 00:00 :00 No [id number] 60mg Take 1 capsule by mouth in the morning and 1 capsule in the evening. Follow up for refills [facility] clonazePAM (KLONOPIN) 1 mg tablet 09-02 00:00: 00 11-09 00:00 :00 No [id number] 1mg Take 1 tablet by mouth once daily as needed for Other (severe anxiety). Take 0.5mg to 1mg as needed for severe anxiety [facility] traZODone 50 mg tablet 08-27 00:00: 00 09-18 00:00 :00 No [id number] 50mg Take 1 tablet by mouth at bedtime. May cut tablet in half. Follow up for refills [facility] busPIRone 10 mg tablet 08-27 00:00: 00 09-02 00:00 :00 No [id number] 20mg Take 2 tablets by mouth in the morning and 2 tablets in the evening. Follow up for refills [facility] ferric derisomalto se (MONOFERRIC ) 100 mg iron/mL Soln 08-07 00:00: 00 08-08 04:59 :00 No [id number] 500mg Inject 500 mg intravenou sly once now for 1 dose. [facility] clonazePAM 1 mg tablet 08-01 00:00: 00 09-02 00:00 :00 No [id number] Take half to 1 tablet by mouth once daily as needed for extreme anxiety. Attempt to minimize use. Follow-up for continued refills. [facility] lithium carbonate CR 450 mg SR tablet 07-30 00:00: 00 10-16 00:00 :00 No [id number] 900mg Take 2 tablets by mouth at bedtime. [facility] omeprazole 40 mg capsule 07-25 00:00: 00 07-21 04:59 :00 No [id number] 40mg Take 1 capsule by mouth in the morning and 1 capsule in the evening. Take with meals. Do all this for 360 days. [facility] sucralfate 1 gram tablet 07-25 00:00: 00 10-24 04:59 :00 No [id number] 1g Take 1 tablet by mouth before meals and at bedtime for 90 days. [facility] traZODone 50 mg tablet 2024-0 6-06 00:00: 00 08-26 00:00 :00 No [id number] 50mg Take 1 tablet by mouth at bedtime. May cut tablet in half. Follow up for refills [facility] DULoxetine 60 mg capsule 06-21 00:00: 00 09-02 00:00 :00 No [id number] 60mg Take 1 capsule by mouth in the morning and 1 capsule in the evening. Follow up for refills [facility] busPIRone 10 mg tablet 06-21 00:00: 00 08-27 00:00 :00 No [id number] 20mg Take 2 tablets by mouth in the morning and 2 tablets in the evening. Follow up for refills [facility] traZODone 50 mg tablet 06-21 00:00: 00 07-18 00:00 :00 No [id number] 50mg Take 1 tablet by mouth at bedtime. May cut tablet in half. Follow up for refills [facility] clonazePAM 1 mg tablet 06-12 00:00: 00 07-30 00:00 :00 No [id number] Take half to 1 tablet by mouth once daily as needed for extreme anxiety. Attempt to minimize use. Follow-up for continued refills. [facility] iopamidol (ISOVUE 370-500 mL) injection 80 mL 06-07 02:57: 00 06-07 02:45 :00 No [id number] 80mL 80 mL, Intravenou s, ONCE, 1 dose, On Sun06/07/23 at 2200, Routine [facility] NaCl 0.9% (NS) injection 5 mL 06-07 02:36: 00 Yes 5mL 5 mL, Slow IV Push, PRN - SEE INSTRUCTIO NS, Starting on Sun06/07/23 at 2136, Until Discontinu ed, 10 mL [facility] traZODone 50 mg tablet 05-22 00:00: 00 06-21 00:00 :00 No [id number] 50mg Take 1 tablet by mouth at bedtime. May cut tablet in half. [facility] DULoxetine 60 mg capsule 4-10 00:00: 00 06-21 00:00 :00 No [id number] 60mg Take 1 capsule by mouth in the morning and 1 capsule in the evening. [facility] busPIRone 10 mg tablet 3-26 00:00: 00 06-21 00:00 :00 No [id number] 20mg Take 2 tablets by mouth in the morning and 2 tablets in the evening. [facility] traZODone 50 mg tablet -13 00:00: 00 05-22 00:00 :00 No [id number] 50mg Take 1 tablet by mouth at bedtime. June cut tablet in half. [facility] DULoxetine 60 mg capsule 04-24 00:00: 00 05-22 00:00 :00 No [id number] 60mg Take 1 capsule by mouth in the morning and 1 capsule in the evening. [facility] DULoxetine 60 mg capsule 1-24 00:00: 00 04-23 00:00 :00 No [id number] 60mg Take 1 capsule by mouth in the morning and 1 capsule in the evening. [facility] Ubrelvy 100 MG Ubrelvy 100 MG 1- 00:00: 00 No Ubrelvy 100 MG losartan potassium (LOSARTAN ORAL) 02-15 09:55: 13 Yes 20mg Take 20 mg by mouth. [facility] propranolol 80 mg tablet 02-15 09:55: 13 Yes 80mg Take 1 tablet by mouth in the morning and 1 tablet in the evening. [facility] allopurinoL 100 mg tablet 02-15 09:55: 13 Yes 100mg Take 1 tablet by mouth in the morning. [facility] lithium carbonate CR 450 mg SR tablet 2022-02 00:00: 00 07-29 00:00 :00 No [id number] 900mg Take 2 tablets by mouth at bedtime. [facility] clonazePAM 1 mg tablet 2022-02 00:00: 00 06-11 00:00 :00 No [id number] Take half to 1 tablet by mouth once daily as needed for extreme anxiety. Attempt to minimize use. [facility] busPIRone 10 mg tablet 2022-02 00:00: 00 05-07 00:00 :00 No [id number] 20mg Take 2 tablets by mouth in the morning and 2 tablets in the evening. [facility] traZODone 50 mg tablet 2022-02 00:00: 00 04-22 00:00 :00 No [id number] 50mg Take 1 tablet by mouth at bedtime. May cut tablet in half. [facility] DULoxetine 60 mg capsule 2022-02 00:00: 00 03-07 00:00 :00 No [id number] 60mg Take 1 capsule by mouth in the morning and 1 capsule in the evening. [facility] TAKE 1 TABLET EVERY 4 HOURS NEEDED. 2022-02 00:00: 00 06-12 00:00 :00 No 10 [facility] Cali busPIRone 15 mg tablet 2022-02 00:00: 00 01-22 00:00 :00 No [id number] 15mg Take 1 tablet by mouth in the morning and 1 tablet in the evening. [facility] lithium carbonate CR 450 mg SR tablet 2022-02 00:00: 00 01-22 00:00 :00 No [id number] 900mg Take 2 tablets by mouth at bedtime. [facility] traZODone 50 mg tablet 2022-02 00:00: 00 01-22 00:00 :00 No [id number] 50mg Take 1 tablet by mouth at bedtime. May cut tablet in half. [facility] DULoxetine 60 mg capsule 2022-02 00:00: 00 01-22 00:00 :00 No [id number] 60mg Take 1 capsule by mouth in the morning and 1 capsule in the evening. [facility] clonazePAM 1 mg tablet 2022-02 00:00: 00 01-22 00:00 :00 No [id number] Take 1 tablet by mouth once daily as needed for extreme anxiety. Attempt to minimize use. [facility] busPIRone 15 mg tablet 2022-02 00:00: 12-20 00:00 :00 No [id number] 15mg Take 1 tablet by mouth in the morning and 1 tablet in the evening. [facility] lithium carbonate CR 450 mg SR tablet 2022-02 00:00: 00 12-20 00:00 :00 No [id number] 900mg Take 2 tablets by mouth at bedtime. [facility] traZODone 50 mg tablet 2022-02 00:00: 00 12-20 00:00 :00 No [id number] 50mg Take 1 tablet by mouth at bedtime. May cut tablet in half. [facility] TAKE 2 TABLETS ONCE A DAY BY MOUTH 2022-02 00:00: 00 06-12 00:00 :00 No 200 Robert Arnol Cali DULoxetine 60 mg capsule 2022-02 00:00: 00 12-20 00:00 :00 No [id number] 60mg Take 1 capsule by mouth in the morning and 1 capsule in the evening. [facility] simethicone (GAS RELIEF (SIMETHICON E)) 40 mg/0.6 mL drops 2022-02 13:19: 00 11-13 16:49 :02 No PRN, Starting on Sun11/13/22 at 0819, Until Sun11/13/22 at 1149, Routine, Intra-op [facility] losartan potassium (LOSARTAN ORAL) 2022-02 09:49: 01 Yes 20mg Take 20 mg by mouth. [facility] propranolol 80 mg tablet 2022-02 09:49: 01 Yes 80mg Take 1 tablet by mouth in the morning and 1 tablet in the evening. [facility] allopurinoL 100 mg tablet 2022-02 09:49: 01 Yes 100mg Take 1 tablet by mouth in the morning. [facility] sucralfate 1 gram tablet 2022-02 0-02 00:00: 00 12-14 04:59 :00 No 1g Take 1 tablet by mouth in the morning and 1 tablet in the evening. Do all this for 30 days. [facility] ketorolac (TORADOL) injection 30 mg 11-03 17:00: 00 11-03 16:25 :00 No 30mg 30 mg, Slow IV Push, ONCE, 1 dose, On Sun11/03/22 at 1200, Routine [facility] NaCl 0.9% (NS) bolus infusion 500 mL 11-03 16:45: 00 11-03 18:14 :00 No 500mL at 999 mL/hr, 500 mL, IV Infusion, ONCE, 1 dose, [facility] 1145[facility] (ESGIC) 50-325-40 mg tablet 1 tablet 11-03 16:00: 00 11-03 16:21 :00 No 1{tbl} 1 tablet, Oral, ONCE, 1 dose, [facility] Sun11/03/22 at 1100, [facility] dexamethaso ne sod phos PF injection 10 mg 11-03 16:00: 00 11-03 16:27 :00 No 10mg 10 mg, Slow IV Push, ONCE, 1 dose, On Sun11/03/22 at 1100, 1 mL [facility] metoclopram chelo HCl (REGLAN) injection 10 mg 11-03 16:00: 00 11-03 16:28 :00 No 10mg 10 mg, Slow IV Push, ONCE, 1 dose, On Sun11/03/22 at 1100, [facility] diphenhydrA MINE (BENADRYL) injection 25 mg 11-03 16:00: 00 11-03 16:30 :00 No 25mg 25 mg, Slow IV Push, ONCE, 1 dose, On Sun11/03/22 at 1100, STAT [facility] atorvastati n 10 mg tablet 11-03 10:48: 00 11-03 00:00 :00 No 10mg Take 10 mg by mouth at bedtime. [facility] butalbital- acetaminoph en-caff 50-325-40 mg tablet 11-03 00:00: 00 Yes [id number] 1{tbl} Take 1 tablet by mouth every 6 (six) hours as needed for Pain (scale 7-10) or Pain (scale 4-6) for up to 12 doses. [facility] peg-electro lyte soln 236-22.74-6 .74 -5.86 gram solution 10-19 00:00: 00 11-03 00:00 :00 No [id number] Take as directed before colonoscop y [facility] TAKE 1 TABLET DAILY. 10-12 00:00: 00 06-12 00:00 :00 No 40 Robert Cali busPIRone 15 mg tablet 10-04 00:00: 00 12-13 00:00 :00 No [id number] 15mg Take 1 tablet by mouth in the morning and 1 tablet in the evening. [facility] clonazePAM 1 mg tablet 09-28 00:00: 00 12-20 00:00 :00 No [id number] Take 1 tablet by mouth twice daily as needed for anxiety. [facility] DULoxetine 60 mg capsule 09-26 00:00: 00 11-22 00:00 :00 No [id number] 60mg Take 1 capsule by mouth in the morning and 1 capsule in the evening. [facility] lithium carbonate CR 450 mg SR tablet 09-13 00:00: 00 11-28 00:00 :00 No [id number] 900mg Take 2 tablets by mouth at bedtime. [facility] busPIRone 10 mg tablet 09-13 00:00: 00 10-04 00:00 :00 No [id number] 10mg Take 1 tablet by mouth in the morning and 1 tablet in the evening. [facility] clonazePAM 1 mg tablet 08-30 00:00: 00 09-25 00:00 :00 No [id number] Take 1 tablet by mouth twice daily as needed for anxiety. [facility] TAKE 2 TABLETS ONCE A DAY BY MOUTH 08-24 00:00: 00 06-12 00:00 :00 No 200 Robert Cali FUROSEMIDE ORAL 07-26 09:33: 26 07-26 00:00 :00 No 40mg Take 40 mg by mouth daily. [facility] traZODone 50 mg tablet 07-26 00:00: 00 11-28 00:00 :00 No [id number] 50mg Take 1 tablet by mouth at bedtime. May cut tablet in half. [facility] DULoxetine 60 mg capsule 07-26 00:00: 00 09-25 00:00 :00 No [id number] 60mg Take 1 capsule by mouth in the morning and 1 capsule in the evening. [facility] lithium carbonate CR 450 mg SR tablet 07-26 00:00: 00 09-13 00:00 :00 No [id number] 900mg Take 2 tablets by mouth at bedtime. [facility] busPIRone 10 mg tablet 07-26 00:00: 00 09-13 00:00 :00 No [id number] 10mg Take 1 tablet by mouth in the morning and 1 tablet in the evening. [facility] INHALE 2 PUFFS EVERY 4-6 HOURS NEEDED. 07-22 00:00: 00 06-12 00:00 :00 No [id number] Robert Cali clonazePAM 1 mg tablet 24 00:00: 00 08-29 00:00 :00 No [id number] Take 1 tablet by mouth twice daily as needed for anxiety. [facility] TAKE 1 CAPSULE 3 TIMES DAILY WITH MEALS. 16 00:00: 00 06-12 00:00 :00 No 120 Robert Arnol Cali DULoxetine 60 mg capsule 09 00:00: 00 07-26 00:00 :00 No [id number] 60mg Take 1 capsule by mouth in the morning and 1 capsule in the evening. [facility] lithium carbonate CR 450 mg SR tablet 06-20 00:00: 00 07-26 00:00 :00 No [id number] 900mg Take 2 tablets by mouth at bedtime. [facility] TAKE 1 TABLET TWICE DAILY. 06-15 00:00: [...] 04-20 00:00: 00 07-26 00:00 :00 No [id number] 50mg Take 1 tablet by mouth at bedtime. May cut tablet in half. [facility] clonazePAM 1 mg tablet 04-20 00:00: 00 07-05 00:00 :00 No [id number] Take 1 tablet by mouth twice daily as needed for anxiety. [facility] DULoxetine 60 mg capsule 04-20 00:00: 00 06-17 00:00 :00 No [id number] 60mg Take 1 capsule by mouth in the morning and 1 capsule in the evening. [facility] lithium carbonate CR 450 mg SR tablet 04-20 00:00: 00 06-17 00:00 :00 No [id number] 900mg Take 2 tablets by mouth at bedtime. [facility] traZODone 50 mg tablet 1-04 00:00: 00 04-20 00:00 :00 No [id number] 50mg Take 1 tablet by mouth at bedtime. May cut tablet in half. [facility] lithium carbonate CR 450 mg SR tablet - 00:00: 00 04-20 00:00 :00 No [id number] 900mg Take 2 tablets by mouth at bedtime. [facility] DULoxetine 60 mg capsule - 00:00: 00 04-19 00:00 :00 No [id number] 60mg Take 1 capsule by mouth in the morning and 1 capsule in the evening. [facility] clonazePAM 1 mg tablet 02-15 00:00: 00 04-19 00:00 :00 No [id number] Take 1 tablet by mouth twice daily as needed for anxiety. [facility] lithium 600 mg capsule 02-15 00:00: 00 02-15 00:00 :00 No [id number] 600mg Take 1 capsule by mouth in the morning and 1 capsule in the evening. [facility] DULoxetine 60 mg capsule 2021-02 00:00: 00 02-15 00:00 :00 No [id number] 60mg Take 1 capsule by mouth in the morning and 1 capsule in the evening. [facility] traZODone 50 mg tablet 2021-02 00:00: 00 02-15 00:00 :00 No [id number] 50mg Take 1 tablet by mouth at bedtime. May cut tablet in half. [facility] clonazePAM 1 mg tablet 2021-02 00:00: 00 02-15 00:00 :00 No [id number] Take 1 tablet by mouth twice daily as needed for anxiety. [facility] DULoxetine 60 mg capsule 2021-02 00:00: 00 02-07 00:00 :00 No [id number] 60mg Take 1 capsule by mouth in the morning and 1 capsule in the evening. [facility] traZODone 50 mg tablet 2021-02 00:00: 00 01-11 00:00 :00 No [id number] 50mg Take 1 tablet by mouth at bedtime. May cut tablet in half. [facility] DULoxetine 60 mg capsule 2021-1 0-25 00:00: 00 01-09 00:00 :00 No [id number] 60mg Take 1 capsule by mouth in the morning and 1 capsule in the evening. [facility] lithium 600 mg capsule 2021-1 0-20 00:00: 00 02-15 00:00 :00 No [id number] 600mg Take 1 capsule by mouth in the morning and 1 capsule in the evening. [facility] lamoTRIgine 25 mg tablet 2021-1 0-20 00:00: 00 01-11 00:00 :00 No [id number] 50mg Take 2 tablets by mouth in the morning and 2 tablets in the evening. [facility] clonazePAM 1 mg tablet 2021-02 0-20 00:00: 00 01-09 00:00 :00 No [id number] Take 1 tablet by mouth twice daily as needed for anxiety. [facility] lamoTRIgine 25 mg tablet 2021-0 8-26 00:00: 00 11-30 00:00 :00 No [id number] 50mg Take 2 tablets by mouth in the morning and 2 tablets in the evening. [facility] clonazePAM 1 mg tablet 2021-0 8-25 00:00: 00 11-30 00:00 :00 No [id number] Take no more than 1 mg twice daily as needed for anxiety [facility] lithium 600 mg capsule 2021-0 8-25 00:00: 00 11-30 00:00 :00 No [id number] 600mg Take 1 capsule by mouth in the morning and 1 capsule in the evening. [facility] Lamotrigine 50 mg tablet 2-0 8-25 00:00: 00 10-07 00:00 :00 No [id number] 50mg Take 1 tablet by mouth in the morning and 1 tablet in the evening. [facility] Lamotrigine 50 mg tablet 2021-0 8-11 00:00: 00 10-06 00:00 :00 No [id number] 50mg Take 1 tablet by mouth in the morning and 1 tablet in the evening. [facility] DULoxetine 60 mg capsule 727 00:00: 00 12-05 00:00 :00 No [id number] 60mg Take 1 capsule by mouth in the morning and 1 capsule in the evening. [facility] Lamotrigine 50 mg tablet 18 00:00: 00 09-22 00:00 :00 No [id number] 50mg Take 1 tablet by mouth in the morning and 1 tablet in the evening. [facility] lithium 600 mg capsule 7-13 00:00: 00 10-06 00:00 :00 No [id number] 600mg Take 1 capsule by mouth in the morning and 1 capsule in the evening. [facility] DULoxetine 60 mg capsule 08-09 00:00: 00 Yes [id number] 60mg Take 1 capsule by mouth 2 (two) times daily. [facility] traZODone 50 mg tablet 08-09 00:00: 00 01-02 00:00 :00 No [id number] 50mg Take 1 tablet by mouth at bedtime. May cut tablet in half. [facility] clonazePAM 1 mg tablet 08-09 00:00: 00 10-06 00:00 :00 No [id number] Take no more than 1 mg twice daily as needed for anxiety [facility] CYANOCOBALA M INJ [id number] Milliliters 06-04 00:00: 00 Yes Robert Cali DULoxetine 60 mg capsule 05-26 00:00: 00 08-09 00:00 :00 No [id number] 60mg Take 1 capsule by mouth 2 (two) times daily. [facility] traZODone 50 mg tablet 05-26 00:00: 00 08-09 00:00 :00 No [id number] 50mg Take 1 tablet by mouth at bedtime. May cut tablet in half. [facility] vitamin B-12 1,000 mcg tablet 05-23 00:00: 00 11-03 00:00 :00 No [id number] 1000ug Take 1 tablet by mouth daily. [facility] cyanocobala min 1,000 mcg/mL injection 05-23 00:00: 00 11-03 00:00 :00 No [id number] 1000ug 1 mL by Intramuscu lar route weekly. [facility] losartan potassium (LOSARTAN ORAL) 05-17 09:24: 36 Yes 20mg Take 20 mg by mouth. [facility] FUROSEMIDE ORAL 05-17 09:24: 36 Yes 40mg Take 40 mg by mouth daily. [facility] magnesium gluconate 200 mg tablet 05-17 00:00: 00 Yes [id number] 400mg Take 2 tablets by mouth 2 (two) times daily. [facility] gabapentin 300 mg capsule 05-17 00:00: 00 11-03 00:00 :00 No [id number] 300mg Take 1 capsule by mouth 3 (three) times daily. [facility] rizatriptan 5 mg disintegrat ing tablet 05-17 00:00: 00 11-03 00:00 :00 No [id number] 5mg Take 1 tablet by mouth as needed for Migraine (Take 5mg at the beginning of the headache can repeat 2h after if headaches persists). May repeat in 2 hours if needed [facility] magnesium gluconate 200 mg tablet 05-17 00:00: 00 11-03 00:00 :00 No [id number] 400mg Take 2 tablets by mouth 2 (two) times daily. [facility] artificial tears,hypro mellose, 0.5 % ophthalmic drops 05-17 00:00: 00 06-22 00:00 :00 No [id number] 1[drp] Place 1 Drop in left eye as needed for Dry eyes. [facility] Dose Unknown 05-16 00:00: 00 Yes Robert Arnol Viraj Dose Unknown 05-16 00:00: 00 Yes Robert Cali Dose Unknown 05-16 00:00: 00 Yes Robert F Viraj Dose Unknown 2021-0 4-04 00:00: 00 Yes Robert F Viraj Dose Unknown 0 4-04 00:00: 00 Yes Robert F Viraj Dose Unknown 0 4-04 00:00: 00 Yes Robert F Viraj Dose Unknown 0 4-04 00:00: 00 Yes Robert F Viraj Dose Unknown 0 4-04 00:00: 00 Yes Robert F Viraj Dose Unknown 2021-0 4-04 00:00: 00 Yes Robert F Viraj Dose Unknown 0 4-04 00:00: 00 Yes Robert F Viraj Dose Unknown 0 4-04 00:00: 00 Yes Robert F Viraj Dose Unknown 2021-0 4-04 00:00: 00 Yes Robert F Viraj Dose Unknown 0 4-04 00:00: 00 Yes Robert F Viraj Dose Unknown 0 4-04 00:00: 00 Yes Robert F Viraj Dose Unknown 0 4-04 00:00: 00 Yes Robert F Viraj Dose Unknown 2021-0 4-04 00:00: 00 Yes Robert F Viraj Dose Unknown 0 4-04 00:00: 00 Yes Robert F Viraj Dose Unknown 0 4-04 00:00: 00 Yes Robert F Viraj Dose Unknown 0 4-04 00:00: 00 Yes Robert Cali clonazePAM 1 mg tablet 0 3-31 00:00: 00 08-09 00:00 :00 No [id number] Take no more than 1 mg twice daily as needed for anxiety [facility] lithium 600 mg capsule 0 3-30 00:00: 00 06-12 00:00 :00 No [id number] 600mg Take 1 capsule by mouth 2 (two) times daily. [facility] ondansetron (ZOFRAN ODT) 4 mg disintegrat ing tablet 0 09-02 00:00: 00 11-03 00:00 :00 No [id number] 4mg Take 1 tablet by mouth every 8 (eight) hours as needed for Nausea and Vomiting (N/V). [facility] butalbital- acetaminoph en-caff 50-325-40 mg tablet 0 22 00:00: 00 05-11 00:00 :00 No [id number] 1{tbl} Take 1 tablet by mouth every 6 (six) hours as needed for Pain (scale 7-10). [facility] Dose Unknown 0 07-14 00:00: 00 Yes Robert F Viraj Dose Unknown 0 6 00:00: 00 Yes Robert F Viraj Dose Unknown 0 6 00:00: 00 Yes Robert F Viraj Dose Unknown 0 21 00:00: 00 Yes Robert F Viraj Dose Unknown 0 19 00:00: 00 Yes Robert F Viraj Dose Unknown 0 06-30 00:00: 00 Yes Robert F Viraj Dose Unknown 0 19 00:00: 00 Yes Robert F Viraj Dose Unknown 0 5-19 00:00: 00 Yes Robert F Viraj Dose Unknown 0 519 00:00: 00 Yes Robert F Viraj Dose Unknown 0 19 00:00: 00 Yes Robert F Viraj Dose Unknown 2020-0 19 00:00: 00 Yes Robert F Viraj Dose Unknown 0 5-19 00:00: 00 Yes Robert F Viraj Dose Unknown 0 -19 00:00: 00 Yes Robert F Viraj Dose Unknown 0 519 00:00: 00 Yes Robert F Viraj Dose Unknown 0 -19 00:00: 00 Yes Robert F Viraj Dose Unknown 0 -19 00:00: 00 Yes Robert F Viraj Dose Unknown 0 28 00:00: 00 Yes Robert F Viraj Dose Unknown 0 -28 00:00: 00 Yes Robert F Viraj Dose Unknown 2020-0 28 00:00: 00 Yes Robret F Viraj allopurinoL 100 mg tablet 08-05 13:17: 52 Yes 100mg Take 1 tablet by mouth in the morning. [facility] atorvastati n 10 mg tablet 08-05 13:17: 52 Yes 10mg Take 10 mg by mouth at bedtime. [facility] propranolol 80 mg tablet 08-05 13:12: 38 Yes 80mg Take 1 tablet by mouth in the morning and 1 tablet in the evening. [facility] clonazePAM clonazePAM No clonazePAM amLODIPine Besylate 5 MG amLODIPine Besylate 5 MG No amLODIPine Besylate 5 MG levETIRAcet am 500 MG levETIRAcet am 500 MG No 1{table t} BID levETIRAce obrien 500 MG acetaZOLAMI DE 250 MG acetaZOLAMI DE [...] then every 6 hours after as needed [facility] alprazolam 0.5 mg tablet Take 1 tablet 3 times a day by oral route. alprazolam 0.5 mg tablet Take 1 tablet 3 times a day by oral route. No 1 TID alprazolam 0.5 mg tablet Take 1 tablet 3 times a day by oral route. [facility] amlodipine 10 mg tablet Take 1 tablet every day by oral route. amlodipine 10 mg tablet Take 1 tablet every day by oral route. No 1 Q1D amlodipine 10 mg tablet Take 1 tablet every day by oral route. [facility] Celebrex 200 mg capsule Take 1 capsule every day by oral route as directed for 1 day. Celebrex 200 mg capsule Take 1 capsule every day by oral route as directed for 1 day. No 1capsul e(s) Q1D Celebrex 200 mg capsule Take 1 capsule every day by oral route as directed for 1 day. [facility] lamotrigine 100 mg tablet Take 1 tablet every day by oral route. lamotrigine 100 mg tablet Take 1 tablet every day by oral route. No 1 Q1D lamotrigin e 100 mg tablet Take 1 tablet every day by oral route. [facility] lithium carbonate ER 450 mg tablet,exte nded release Take 1 tablet twice a day by oral route. lithium carbonate ER 450 mg tablet,exte nded release Take 1 tablet twice a day by oral route. No 1 BID lithium carbonate ER 450 mg tablet,ext ended release Take 1 tablet twice a day by oral route. [facility] losartan 100 mg tablet Take 1 tablet every day by oral route. losartan 100 mg tablet Take 1 tablet every day by oral route. No 1 Q1D losartan 100 mg tablet Take 1 tablet every day by oral route. [facility] Macrobid 100 mg capsule Take 1 capsule twice a day by oral route for 7 days. Macrobid 100 mg capsule Take 1 capsule twice a day by oral route for 7 days. No 1capsul e(s) BID Macrobid 100 mg capsule Take 1 capsule twice a day by oral route for 7 days. [facility] omeprazole 40 mg capsule,del ayed release Take 1 capsule every day by oral route. omeprazole 40 mg capsule,del ayed release Take 1 capsule every day by oral route. No 1capsul e(s) Q1D omeprazole 40 mg capsule,de layed release Take 1 capsule every day by oral route. [facility] propranolol propranolol No pr opranolo l [facility] rosuvastati n 10 mg tablet Take 1 tablet every day by oral route. rosuvastati n 10 mg tablet Take 1 tablet every day by oral route. No 1 Q1D rosuvastat in 10 mg tablet Take 1 tablet every day by oral route. [facility] Ubrelvy 100 mg tablet Take by oral route. Ubrelvy 100 mg tablet Take by oral route. No Ubrelvy 100 mg tablet Take by oral route. [facility] Valium 10 mg tablet Take 1 tablet as needed by oral route as directed for 2 days. Valium 10 mg tablet Take 1 tablet as needed by oral route as directed for 2 days. No 1 Valium 10 mg tablet Take 1 tablet as needed by oral route as directed for 2 days. [facility] Immunizations Ordered Immunization Name Filled Immunization Name Date Status Comments Source Influenza, injectable, MDCK, quadrivalent, preservative Influenza, injectable, MDCK, quadrivalent, preservative 2022-10-27 00:00:00 Completed [facility] Cali Influenza Virus Vaccine Quad .5 mL IM 6+ MO (FLUZONE/FLULAVAL/F LUARIX) 2020-11-13 00:00:00 Completed [facility] Influenza Virus Vaccine Quad .5 mL IM 6+ MO (FLUZONE/FLULAVAL/F LUARIX) 2020-11-13 00:00:00 Completed influenza, injectable influenza, injectable 2020-11-13 00:00:00 Completed Robert Cali TDAP 2020-09-11 00:00:00 Completed [facility] TDAP 2020-09-11 00:00:00 Completed [facility] Tdap Tdap 2020-09-11 00:00:00 Completed Robert Cali SARS-COV-2 COVID-19 VACCINE - (MODERNA) 2020-04-24 00:00:00 Completed [facility] SARS-COV-2 COVID-19 VACCINE - (MODERNA) 2020-04-24 00:00:00 Completed Moderna COVID-19 Vaccine Moderna COVID-19 Vaccine 2020-04-24 00:00:00 Completed Robert Cali SARS-COV-2 COVID-19 VACCINE - (MODERNA) 2020-03-19 00:00:00 Completed [facility] SARS-COV-2 COVID-19 VACCINE - (MODERNA) 2020-03-19 00:00:00 Completed Moderna COVID-19 Vaccine Moderna COVID-19 Vaccine 2020-03-19 00:00:00 Completed Robert Cali TDAP Unknown Completed [facility] Influenza Virus Vaccine Quad .5 mL IM 6+ MO (FLUZONE/FLULAVAL/F LUARIX) Unknown Completed [facility] SARS-COV-2 COVID-19 VACCINE - (MODERNA) Unknown Completed [facility] TDAP Unknown Completed [facility] Influenza Virus Vaccine Quad .5 mL IM 6+ MO (FLUZONE/FLULAVAL/F LUARIX) Unknown Completed [facility] SARS-COV-2 COVID-19 VACCINE - (MODERNA) Unknown Completed [facility] TDAP Unknown Completed [facility] Influenza Virus Vaccine Quad .5 mL IM 6+ MO (FLUZONE/FLULAVAL/F LUARIX) Unknown Completed [facility] SARS-COV-2 COVID-19 VACCINE - (MODERNA) Unknown [facility] Influenza Virus Vaccine Quad .5 mL IM 6+ MO (FLUZONE/FLULAVAL/F LUARIX) Unknown Completed [facility] SARS-COV-2 COVID-19 VACCINE - (MODERNA) Unknown Completed [facility] TDAP Unknown Completed [facility] Influenza Virus Vaccine Quad .5 mL IM 6+ MO (FLUZONE/FLULAVAL/F LUARIX) Unknown Completed [facility] SARS-COV-2 COVID-19 VACCINE - (MODERNA) Unknown Completed [facility] TDAP Unknown Completed [facility] Influenza Virus Vaccine Quad .5 mL IM 6+ MO (FLUZONE/FLULAVAL/F LUARIX) Unknown Completed [facility] SARS-COV-2 COVID-19 VACCINE - (MODERNA) Unknown Completed [facility] TDAP Unknown Completed [facility] Influenza Virus Vaccine Quad .5 mL IM 6+ MO (FLUZONE/FLULAVAL/F LUARIX) Unknown Completed [facility] SARS-COV-2 COVID-19 VACCINE - (MODERNA) Unknown Completed [facility] TDAP Unknown Completed [facility] Influenza Virus Vaccine Quad .5 mL IM 6+ MO (FLUZONE/FLULAVAL/F LUARIX) Unknown Completed [facility] SARS-COV-2 COVID-19 VACCINE - (MODERNA) Unknown Completed [facility] TDAP Unknown Completed [facility] Influenza Virus Vaccine Quad .5 mL IM 6+ MO (FLUZONE/FLULAVAL/F LUARIX) Unknown Completed [facility] SARS-COV-2 COVID-19 VACCINE - (MODERNA) Unknown Completed [facility] TDAP Unknown Completed [facility] Influenza Virus Vaccine Quad .5 mL IM 6+ MO (FLUZONE/FLULAVAL/F LUARIX) Unknown Completed [facility] SARS-COV-2 COVID-19 VACCINE - (MODERNA) Unknown Completed [facility] TDAP Unknown Completed [facility] Influenza Virus Vaccine Quad .5 mL IM 6+ MO (FLUZONE/FLULAVAL/F LUARIX) Unknown Completed [facility] SARS-COV-2 COVID-19 VACCINE - (MODERNA) Unknown Completed [facility] TDAP Unknown Completed [facility] Influenza Virus Vaccine Quad .5 mL IM 6+ MO (FLUZONE/FLULAVAL/F LUARIX) Unknown Completed [facility] SARS-COV-2 COVID-19 VACCINE - (MODERNA) Unknown Completed [facility] TDAP Unknown Completed [facility] Influenza Virus Vaccine Quad .5 mL IM 6+ MO (FLUZONE/FLULAVAL/F LUARIX) Unknown Completed [facility] SARS-COV-2 COVID-19 VACCINE - (MODERNA) Unknown Completed [facility] TDAP Unknown Completed [facility] Influenza Virus Vaccine Quad .5 mL IM 6+ MO (FLUZONE/FLULAVAL/F LUARIX) Unknown Completed [facility] SARS-COV-2 COVID-19 VACCINE - (MODERNA) Unknown Completed [facility] TDAP Unknown Completed [facility] Influenza Virus Vaccine Quad .5 mL IM 6+ MO (FLUZONE/FLULAVAL/F LUARIX) Unknown Completed [facility] SARS-COV-2 COVID-19 VACCINE - (MODERNA) Unknown Completed [facility] TDAP Unknown Completed [facility] Influenza Virus Vaccine Quad .5 mL IM 6+ MO (FLUZONE/FLULAVAL/F LUARIX) Unknown Completed [facility] SARS-COV-2 COVID-19 VACCINE - (MODERNA) Unknown Completed [facility] TDAP Unknown Completed [facility] Influenza Virus Vaccine Quad .5 mL IM 6+ MO (FLUZONE/FLULAVAL/F LUARIX) Unknown Completed [facility] SARS-COV-2 COVID-19 VACCINE - (MODERNA) Unknown Completed [facility] TDAP Unknown Completed [facility] Influenza Virus Vaccine Quad .5 mL IM 6+ MO (FLUZONE/FLULAVAL/F LUARIX) Unknown Completed [facility] SARS-COV-2 COVID-19 VACCINE - (MODERNA) Unknown Completed [facility] TDAP Unknown Completed [facility] Influenza Virus Vaccine Quad .5 mL IM 6+ MO (FLUZONE/FLULAVAL/F LUARIX) Unknown Completed [facility] SARS-COV-2 COVID-19 VACCINE - (MODERNA) Unknown Completed [facility] TDAP Unknown Completed [facility] Influenza Virus Vaccine Quad .5 mL IM 6+ MO (FLUZONE/FLULAVAL/F LUARIX) Unknown Completed [facility] SARS-COV-2 COVID-19 VACCINE - (MODERNA) Unknown Completed [facility] TDAP Unknown Completed [facility] Influenza Virus Vaccine Quad .5 mL IM 6+ MO (FLUZONE/FLULAVAL/F LUARIX) Unknown Completed [facility] SARS-COV-2 COVID-19 VACCINE - (MODERNA) Unknown Completed [facility] TDAP Unknown Completed [facility] Influenza Virus Vaccine Quad .5 mL IM 6+ MO (FLUZONE/FLULAVAL/F LUARIX) Unknown Completed [facility] TDAP Unknown Completed [facility] Influenza Virus Vaccine Quad .5 mL IM 6+ MO (FLUZONE/FLULAVAL/F LUARIX) Unknown Completed [facility] SARS-COV-2 COVID-19 VACCINE - (MODERNA) Unknown Completed [facility] TDAP Unknown Completed [facility] Influenza Virus Vaccine Quad .5 mL IM 6+ MO (FLUZONE/FLULAVAL/F LUARIX) Unknown Completed [facility] SARS-COV-2 COVID-19 VACCINE - (MODERNA) Unknown Completed [facility] SARS-COV-2 COVID-19 VACCINE - (MODERNA) Unknown Completed [facility] TDAP Unknown Completed [facility] Influenza Virus Vaccine Quad .5 mL IM 6+ MO (FLUZONE/FLULAVAL/F LUARIX) Unknown Completed [facility] SARS-COV-2 COVID-19 VACCINE - (MODERNA) Unknown Completed [facility] TDAP Unknown Completed [facility] Influenza Virus Vaccine Quad .5 mL IM 6+ MO (FLUZONE/FLULAVAL/F LUARIX) Unknown Completed [facility] SARS-COV-2 COVID-19 VACCINE - (MODERNA) Unknown Completed [facility] TDAP Unknown Completed [facility] Influenza Virus Vaccine Quad .5 mL IM 6+ MO (FLUZONE/FLULAVAL/F LUARIX) Unknown Completed [facility] SARS-COV-2 COVID-19 VACCINE - (MODERNA) Unknown Completed [facility] TDAP Unknown Completed [facility] Influenza Virus Vaccine Quad .5 mL IM 6+ MO (FLUZONE/FLULAVAL/F LUARIX) Unknown Completed [facility] SARS-COV-2 COVID-19 VACCINE - (MODERNA) Unknown Completed [facility] TDAP Unknown Completed [facility] Influenza Virus Vaccine Quad .5 mL IM 6+ MO (FLUZONE/FLULAVAL/F LUARIX) Unknown Completed [facility] SARS-COV-2 COVID-19 VACCINE - (MODERNA) Unknown Completed [facility] Vital Signs Vital Name Observation Time Observation Value Comments S ource BMI (Body Mass Index) 2024-01-24 00:00:00 34.2 kg/m2 [facility] BP Diastolic 2024-01-24 00:00:00 79 mm[Hg] [facility] Height 2024-01-24 00:00:00 66 [in_i] [facility] BP Systolic 2024-01-24 00:00:00 165 mm[Hg] [facility] Body Weight 2024-01-24 00:00:00 212.2 [lb_av] [facility] BP Systolic 2024-01-23 00:00:00 174 mm[Hg] [facility] BP Diastolic 2024-01-23 00:00:00 95 mm[Hg] [facility] BMI (Body Mass Index) 2024-01-23 00:00:00 34.2 kg/m2 [facility] Height 2024-01-23 00:00:00 66 [in_i] [facility] Body Weight 2024-01-23 00:00:00 212.2 [lb_av] [facility] height 2023-11-27 15:30:00 66 [in_i] [facility] weight-kg 2023-11-27 15:30:00 97.52 kg [facility] bmi 2023-11-27 15:30:00 34.7 kg/m2 [facility] temperature 2023-11-27 15:30:00 97.6 [degF] [facility] respiratory rate 2023-11-27 15:30:00 16 /min [facility] heart rate 2023-11-27 15:30:00 85 /min [facility] blood pressure systolic 2023-11-27 15:30:00 164 mm[Hg] [facility] blood pressure diastolic 2023-11-27 15:30:00 87 mm[Hg] [facility] Systolic blood pressure 2023-07-26 14:17:00 177 mm[Hg] [facility] Diastolic blood pressure 2023-07-26 14:17:00 92 mm[Hg] [facility] Heart rate 2023-07-26 14:17:00 97 /min [facility] Body temperature 2023-07-26 14:17:00 36.39 Verna [facility] Respiratory rate 2023-07-26 14:17:00 18 /min [facility] Body height 2023-07-26 14:17:00 167.6 cm [facility] Body weight 2023-07-26 14:17:00 100.472 kg [facility] BMI 2023-07-26 14:17:00 35.75 kg/m2 [facility] Oxygen saturation in Arterial blood by Pulse oximetry 2023-07-26 14:17:00 97 /min [facility] Systolic blood pressure 2023-06-08 07:00:00 112 mm[Hg] [facility] Diastolic blood pressure 2023-06-08 07:00:00 62 mm[Hg] [facility] Heart rate 2023-06-08 07:00:00 72 /min [facility] Respiratory rate 2023-06-08 07:00:00 20 /min [facility] Oxygen saturation in Arterial blood by Pulse oximetry 2023-06-08 07:00:00 97 /min [facility] Body weight 2023-06-08 02:41:00 108.863 kg [facility] BMI 2023-06-08 02:41:00 38.74 kg/m2 [facility] Body temperature 2023-06-08 02:38:00 36.67 Verna [facility] Body height 2023-06-08 02:34:00 167.6 cm [facility] Systolic blood pressure 2023-02-15 15:53:00 132 mm[Hg] [facility] Diastolic blood pressure 2023-02-15 15:53:00 73 mm[Hg] [facility] Heart rate 2023-02-15 15:53:00 74 /min [facility] Body temperature 2023-02-15 15:53:00 36.44 Verna [facility] Respiratory rate 2023-02-15 15:53:00 16 /min [facility] Body height 2023-02-15 15:53:00 167.6 cm [facility] Body weight 2023-02-15 15:53:00 100.336 kg [facility] BMI 2023-02-15 15:53:00 35.70 kg/m2 [facility] Oxygen saturation in Arterial blood by Pulse oximetry 2023-02-15 15:53:00 100 /min [facility] Systolic blood pressure 2022-11-13 14:08:00 117 mm[Hg] [facility] Diastolic blood pressure 2022-11-13 14:08:00 70 mm[Hg] [facility] Heart rate 2022-11-13 14:08:00 64 /min [facility] Respiratory rate 2022-11-13 14:08:00 12 /min [facility] Oxygen saturation in Arterial blood by Pulse oximetry 2022-11-13 14:08:00 99 /min [facility] Body temperature 2022-11-13 13:38:00 36.39 Verna [facility] Body height 2022-11-13 12:15:00 167.6 cm [facility] Body weight 2022-11-13 12:15:00 95.21 kg [facility] BMI 2022-11-13 12:15:00 33.88 kg/m2 [facility] Systolic blood pressure 2022-11-13 12:15:00 142 mm[Hg] [facility] Diastolic blood pressure 2022-11-13 12:15:00 66 mm[Hg] [facility] Heart rate 2022-11-13 12:15:00 77 /min [facility] Body temperature 2022-11-13 12:15:00 36 Verna [facility] Respiratory rate 2022-11-13 12:15:00 21 /min [facility] Body height 2022-11-13 12:15:00 167.6 cm [facility] Body weight 2022-11-13 12:15:00 95.21 kg [facility] BMI 2022-11-13 12:15:00 33.88 kg/m2 [facility] Oxygen saturation in Arterial blood by Pulse oximetry 2022-11-13 12:15:00 95 /min [facility] Systolic blood pressure 2022-11-03 15:35:00 154 mm[Hg] [facility] Diastolic blood pressure 2022-11-03 15:35:00 86 mm[Hg] [facility] Heart rate 2022-11-03 15:35:00 86 /min [facility] Body temperature 2022-11-03 15:35:00 37 Verna [facility] Respiratory rate 2022-11-03 15:35:00 18 /min [facility] Body height 2022-11-03 15:35:00 167.6 cm [facility] Body weight 2022-11-03 15:35:00 97.523 kg [facility] BMI 2022-11-03 15:35:00 34.70 kg/m2 [facility] Oxygen saturation in Arterial blood by Pulse oximetry 2022-11-03 15:35:00 99 /min [facility] Systolic blood pressure 2022-10-19 12:35:00 159 mm[Hg] Provider Notified [facility] Diastolic blood pressure 2022-10-19 12:35:00 85 mm[Hg] Provider Notified [facility] Heart rate 2022-10-19 12:35:00 94 /min [facility] Body temperature 2022-10-19 12:33:00 36.78 Verna [facility] Respiratory rate 2022-10-19 12:33:00 16 /min [facility] Body height 2022-10-19 12:33:00 167.6 cm [facility] Body weight 2022-10-19 12:33:00 96.616 kg [facility] BMI 2022-10-19 12:33:00 34.38 kg/m2 [facility] Oxygen saturation in Arterial blood by Pulse oximetry 2022-10-19 12:33:00 98 /min [facility] BP Systolic 2024-01-30 13:49:00 169 mm[Hg] Robert Cali BP Diastolic 2024-01-30 13:49:00 85 mm[Hg] Robert Cali Weight Measured 2024-01-30 13:49:00 214.80 pounds Robert Cali Height Measured 2024-01-30 13:49:00 66.00 inches Robert Cali Body Temperature 2024-01-30 13:49:00 98.70 degrees Robert Cali Heart Rate 2024-01-30 13:49:00 87.00 /min Robert Cali Respiratory Rate 2024-01-30 13:49:00 18.00 /min Robert Cali BP Systolic 2024-01-18 13:37:00 137 mm[Hg] Robert F Viraj BP Diastolic 2024-01-18 13:37:00 80 mm[Hg] Robert Cali Weight Measured 2024-01-18 13:37:00 212.60 pounds Robert Cali Height Measured 2024-01-18 13:37:00 66.00 inches Robert Cali Body Temperature 2024-01-18 13:37:00 98.20 degrees Robert Cali Heart Rate 2024-01-18 13:37:00 57.00 /min Robert Ambrose Viraj Respiratory Rate 2024-01-18 13:37:00 18.00 /min Robert Cali BP Systolic 2024-01-04 16:38:00 143 mm[Hg] Robert Arnol Cali BP Diastolic 2024-01-04 16:38:00 93 mm[Hg] [...] Height Measured 2023-12-11 16:36:00 66.00 inches Robert F Viraj Body Temperature 2023-12-11 16:36:00 98.10 degrees Robert F Viraj Heart Rate 2023-12-11 16:36:00 87.00 /min Robert F Viraj Respiratory Rate 2023-12-11 16:36:00 18.00 /min Robert F Viraj BP Systolic 2023-12-05 13:56:00 169 mm[Hg] Robert F Viraj BP Diastolic 2023-12-05 13:56:00 92 mm[Hg] Robert F Viraj Weight Measured 2023-12-05 13:56:00 218.60 pounds Robert F Viraj Height Measured 2023-12-05 13:56:00 66.00 inches Robert F Viraj Body Temperature 2023-12-05 13:56:00 98.00 degrees Robert F Viraj Heart Rate 2023-12-05 13:56:00 92.00 /min Robert F Viraj Respiratory Rate 2023-12-05 13:56:00 18.00 /min Robert F Viraj BP Systolic 2023-11-27 08:18:00 168 mm[Hg] Robert F Viraj BP Diastolic 2023-11-27 08:18:00 93 mm[Hg] Robert F Viraj Weight Measured 2023-11-27 08:18:00 214.60 pounds Robert F Viraj Height Measured 2023-11-27 08:18:00 66.00 inches Robert F Viraj Body Temperature 2023-11-27 08:18:00 97.80 degrees Robert F Viraj Heart Rate 2023-11-27 08:18:00 88.00 /min Robert F Viraj Respiratory Rate 2023-11-27 08:18:00 18.00 /min Robert F Viraj Systolic blood pressure 2023-09-03 14:41:00 131 mm[Hg] [facility] Diastolic blood pressure 2023-09-03 14:41:00 73 mm[Hg] [facility] Heart rate 2023-09-03 14:41:00 93 /min [facility] Respiratory rate 2023-09-03 14:38:00 20 /min [facility] Body height 2023-09-03 14:38:00 167.6 cm [facility] Body weight 2023-09-03 14:38:00 100.2 kg [facility] BMI 2023-09-03 14:38:00 35.65 kg/m2 [facility] Systolic blood pressure 2023-07-26 14:17:00 177 mm[Hg] [facility] Diastolic blood pressure 2023-07-26 14:17:00 92 mm[Hg] [facility] Heart rate 2023-07-26 14:17:00 97 /min [facility] Body temperature 2023-07-26 14:17:00 36.39 Verna [facility] Respiratory rate 2023-07-26 14:17:00 18 /min [facility] Body height 2023-07-26 14:17:00 167.6 cm [facility] Body weight 2023-07-26 14:17:00 100.472 kg [facility] BMI 2023-07-26 14:17:00 35.75 kg/m2 [facility] Oxygen saturation in Arterial blood by Pulse oximetry 2023-07-26 14:17:00 97 /min [facility] Systolic blood pressure 2023-06-08 07:00:00 112 mm[Hg] [facility] Diastolic blood pressure 2023-06-08 07:00:00 62 mm[Hg] [facility] Heart rate 2023-06-08 07:00:00 72 /min [facility] Respiratory rate 2023-06-08 07:00:00 20 /min [facility] Oxygen saturation in Arterial blood by Pulse oximetry 2023-06-08 07:00:00 97 /min [facility] Body weight 2023-06-08 02:41:00 108.863 kg [facility] BMI 2023-06-08 02:41:00 38.74 kg/m2 [facility] Body temperature 2023-06-08 02:38:00 36.67 Verna [facility] Body height 2023-06-08 02:34:00 167.6 cm [facility] BP Systolic 2023-05-22 08:18:00 134 mm[Hg] Robert Cali BP Diastolic 2023-05-22 08:18:00 65 mm[Hg] Robert Cali Weight Measured 2023-05-22 08:18:00 219.00 pounds Robert Cali Height Measured 2023-05-22 08:18:00 66.00 inches Robert Cali Body Temperature 2023-05-22 08:18:00 97.50 degrees Robert Cali Heart Rate 2023-05-22 08:18:00 83.00 /min Robert Cali Respiratory Rate 2023-05-22 08:18:00 19.00 /min Robert Cali Systolic blood pressure 2023-02-15 15:53:00 132 mm[Hg] [facility] Diastolic blood pressure 2023-02-15 15:53:00 73 mm[Hg] [facility] Heart rate 2023-02-15 15:53:00 74 /min [facility] Body temperature 2023-02-15 15:53:00 36.44 Verna [facility] Respiratory rate 2023-02-15 15:53:00 16 /min [facility] Body height 2023-02-15 15:53:00 167.6 cm [facility] Body weight 2023-02-15 15:53:00 100.336 kg [facility] BMI 2023-02-15 15:53:00 35.70 kg/m2 [facility] Oxygen saturation in Arterial blood by Pulse oximetry 2023-02-15 15:53:00 100 /min [facility] Systolic blood pressure 2023-01-22 15:03:00 144 mm[Hg] [facility] Diastolic blood pressure 2023-01-22 15:03:00 83 mm[Hg] [facility] Heart rate 2023-01-22 15:03:00 97 /min [facility] Respiratory rate 2023-01-22 15:00:00 18 /min [facility] Body height 2023-01-22 15:00:00 167.6 cm [facility] Body weight 2023-01-22 15:00:00 95.2 kg [facility] BMI 2023-01-22 15:00:00 33.88 kg/m2 [facility] BP Systolic 2022-12-20 09:52:00 109 mm[Hg] Robert Cali BP Diastolic 2022-12-20 09:52:00 59 mm[Hg] Robert Cali Weight Measured 2022-12-20 09:52:00 217.00 pounds Robert Cali Height Measured 2022-12-20 09:52:00 66.00 inches Robert Cali Body Temperature 2022-12-20 09:52:00 98.40 degrees Robert Cali Heart Rate 2022-12-20 09:52:00 66.00 /min Robert Cali Respiratory Rate 2022-12-20 09:52:00 Robert Cali Systolic blood pressure 2022-11-13 14:08:00 117 mm[Hg] [facility] Diastolic blood pressure 2022-11-13 14:08:00 70 mm[Hg] [facility] Heart rate 2022-11-13 14:08:00 64 /min [facility] Respiratory rate 2022-11-13 14:08:00 12 /min [facility] Oxygen saturation in Arterial blood by Pulse oximetry 2022-11-13 14:08:00 99 /min [facility] Body temperature 2022-11-13 13:38:00 36.39 Verna [facility] Body height 2022-11-13 12:15:00 167.6 cm [facility] Body weight 2022-11-13 12:15:00 95.21 kg [facility] BMI 2022-11-13 12:15:00 33.88 kg/m2 [facility] Systolic blood pressure 2022-11-03 15:35:00 154 mm[Hg] [facility] Diastolic blood pressure 2022-11-03 15:35:00 86 mm[Hg] [facility] Heart rate 2022-11-03 15:35:00 86 /min [facility] Body temperature 2022-11-03 15:35:00 37 Verna [facility] Respiratory rate 2022-11-03 15:35:00 18 /min [facility] Body height 2022-11-03 15:35:00 167.6 cm [facility] Body weight 2022-11-03 15:35:00 97.523 kg [facility] BMI 2022-11-03 15:35:00 34.70 kg/m2 [facility] Oxygen saturation in Arterial blood by Pulse oximetry 2022-11-03 15:35:00 99 /min [facility] BP Systolic 2022-10-12 10:06:00 140 mm[Hg] Robert Cali BP Diastolic 2022-10-12 10:06:00 78 mm[Hg] Robert Cali Weight Measured 2022-10-12 10:06:00 212.20 pounds Robert Cali Height Measured 2022-10-12 10:06:00 66.00 inches Robert Cali Body Temperature 2022-10-12 10:06:00 97.40 degrees Robert Cali Heart Rate 2022-10-12 10:06:00 93.00 /min Robert Cali Respiratory Rate 2022-10-12 10:06:00 Robert Cali Systolic blood pressure 2022-10-04 14:26:00 149 mm[Hg] [facility] Diastolic blood pressure 2022-10-04 14:26:00 76 mm[Hg] [facility] Heart rate 2022-10-04 14:26:00 78 /min [facility] Respiratory rate 2022-10-04 14:21:00 18 /min [facility] Body height 2022-10-04 14:21:00 167.6 cm [facility] Body weight 2022-10-04 14:21:00 96.843 kg [facility] BMI 2022-10-04 14:21:00 34.46 kg/m2 [facility] Systolic blood pressure 2022-07-26 13:22:00 135 mm[Hg] [facility] Diastolic blood pressure 2022-07-26 13:22:00 78 mm[Hg] [facility] Heart rate 2022-07-26 13:22:00 85 /min [facility] Respiratory rate 2022-07-26 13:22:00 18 /min [facility] Body height 2022-07-26 13:22:00 167.6 cm [facility] Body weight 2022-07-26 13:22:00 97.523 kg [facility] BMI 2022-07-26 13:22:00 34.70 kg/m2 [facility] BP Systolic 2022-06-27 13:54:00 132 mm[Hg] Robert Cali BP Diastolic 2022-06-27 13:54:00 77 mm[Hg] Robert Cali Weight Measured 2022-06-27 13:54:00 217.80 pounds Robert Cali Height Measured 2022-06-27 13:54:00 66.00 inches Robert Cali Body Temperature 2022-06-27 13:54:00 97.80 degrees Robert Cali Heart Rate 2022-06-27 13:54:00 90.00 /min Robert Cali Respiratory Rate 2022-06-27 13:54:00 Robert Cali BP Systolic 2022-06-21 08:56:00 135 mm[Hg] Robert Cali BP Diastolic 2022-06-21 08:56:00 75 mm[Hg] Robert Cali Weight Measured 2022-06-21 08:56:00 225.00 pounds Robert Cali Height Measured 2022-06-21 08:56:00 66.00 inches Robert Cali Body Temperature 2022-06-21 08:56:00 97.30 degrees Robert Cali Heart Rate 2022-06-21 08:56:00 81.00 /min Robert Cali Respiratory Rate 2022-06-21 08:56:00 Robert Cali BP Systolic 2022-06-15 15:23:00 150 mm[Hg] Robert F Viraj BP Diastolic 2022-06-15 15:23:00 85 mm[Hg] Robert Cali Weight Measured 2022-06-15 15:23:00 224.80 pounds Robert Cali Height Measured 2022-06-15 15:23:00 66.00 inches Robert Cali Body Temperature 2022-06-15 15:23:00 98.10 degrees Robert Cali Heart Rate 2022-06-15 15:23:00 98.00 /min Robert Cali Respiratory Rate 2022-06-15 15:23:00 Robert Cali BP Systolic 2022-05-23 11:20:00 135 mm[Hg] Robert [...] Systolic blood pressure 2022-02-15 14:59:00 131 mm[Hg] [facility] Diastolic blood pressure 2022-02-15 14:59:00 70 mm[Hg] [facility] Heart rate 2022-02-15 14:59:00 81 /min [facility] Respiratory rate 2022-02-15 14:59:00 18 /min [facility] Body height 2022-02-15 14:59:00 167.6 cm [facility] Body weight 2022-02-15 14:59:00 102.967 kg [facility] BMI 2022-02-15 14:59:00 36.64 kg/m2 [facility] Respiratory rate 2022-01-11 17:11:00 18 /min [facility] Body height 2022-01-11 17:11:00 167.6 cm [facility] Body weight 2022-01-11 17:11:00 100.699 kg [facility] BMI 2022-01-11 17:11:00 35.83 kg/m2 [facility] Systolic blood pressure 2021-08-24 14:24:00 133 mm[Hg] [facility] Diastolic blood pressure 2021-08-24 14:24:00 73 mm[Hg] [facility] Heart rate 2021-08-24 14:24:00 69 /min [facility] Respiratory rate 2021-08-24 14:24:00 18 /min [facility] Body height 2021-08-24 14:24:00 167.6 cm [facility] Body weight 2021-08-24 14:24:00 100.245 kg [facility] BMI 2021-08-24 14:24:00 35.67 kg/m2 [facility] Oxygen saturation in Arterial blood by Pulse oximetry 2021-06-07 15:30:00 96 /min [facility] Body temperature 2021-06-07 14:20:30 37.44 Verna [facility] BP Systolic 2020-07-14 23:18:00 Robert Arnol Viraj BP Diastolic 2020-07-14 23:18:00 Robert Ambrose Viraj Weight Measured 2020-07-14 23:18:00 Robert Arnol Cali Height Measured 2020-07-14 23:18:00 Robert Arnol Cali Body Temperature 2020-07-14 23:18:00 Robert Ambrose Viraj Heart Rate 2020-07-14 23:18:00 Robert Ambrose Viraj Respiratory Rate 2020-07-14 23:18:00 Robert Ambrose Viraj Procedures Procedure Date / Time Performed Performing Clinician Source MAMMO, screening, digital, bilateral 2024-01-23 00:00:00 [facility] URINALYSIS 2023-06-08 03:45:00 Rhiannon Vizcarra [facility] URINE DRUG (IMMUNOASSAY) - COMPREHENSIVE DRUG SCREEN W/O REFLEX 2023-06-08 03:45:00 Marysol Pabon [facility] URINALYSIS 2023-06-08 03:45:00 Rhiannon Vizcarra [facility] URINE DRUG (IMMUNOASSAY) - COMPREHENSIVE DRUG SCREEN W/O REFLEX 2023-06-08 03:45:00 Marysol Pabon [facility] CT STROKE ANGIOGRAM HEAD 2023-06-08 02:56:58 Rhiannon Vizcarra [facility] CT STROKE ANGIOGRAM NECK 2023-06-08 02:56:58 Rhiannon Vizcarra [facility] HB ECG ROUTINE & RHYTHM STRIP 2023-06-08 02:53:51 Rhiannon Vizcarra [facility] CT STROKE HEAD WO CONTRAST 2023-06-08 02:48:28 Rhiannon Vizcarra [facility] TROPONIN I 2023-06-08 02:45:00 Rhiannon Vizcarra [facility] BASIC METABOLIC PANEL (NA, K , CL, CO2, GLUCOSE, BUN, CREATININE, CA) 2023-06-08 02:45:00 Rhiannon Vizcarra [facility] LITHIUM 2023-06-08 02:45:00 Marysol Pabon [facility] ETHANOL 2023-06-08 02:45:00 Marysol Pabon [facility] CBC WITHOUT DIFF 2023-06-08 02:45:00 Rhiannon Vizcarra [facility] PROTHROMBIN TIME / INR 2023-06-08 02:45:00 Rhiannon Vizcarra [facility] ACTIVATED PARTIAL THRMPLAS CIPRIANO 2023-05-15 6 02:45:00 Rhiannon Vizcarra [facility] EXTRA TUBE LAV 2023-06-08 02:45:00 Marysol Pabon [facility] PROTHROMBIN TIME / INR 2023-06-08 02:45:00 Rhiannon Vizcarra [facility] ACTIVATED PARTIAL THRMPLAS CIPRIANO 2023-05-15 6 02:45:00 Rhiannon Vizcarra [facility] CBC WITHOUT DIFF 2023-06-08 02:45:00 Rhiannon Vizcarra [facility] TROPONIN I 2023-06-08 02:45:00 Rhiannon Vizcarra [facility] BASIC METABOLIC PANEL (NA, K , CL, CO2, GLUCOSE, BUN, CREATININE, CA) 2023-06-08 02:45:00 Rhiannon Vizcarra [facility] ETHANOL 2023-06-08 02:45:00 Marysol Pabon [facility] LITHIUM 2023-06-08 02:45:00 Marysol Pabon [facility] EXTRA TUBE LAV 2023-06-08 02:45:00 Marysol Pabon [facility] POCT GLUCOSE(AGE >30DAYS) 2023-06-08 02:39:00 Rhiannon Vizcarra [facility] POCT GLUCOSE(AGE >30DAYS) 2023-06-08 02:39:00 Rhiannon Vizcarra [facility] IRON PANEL 2023-02-15 16:30:00 Elidia Cordero [facility] FERRITIN SERUM 2023-02-15 16:30:00 Elidia Cordero [facility] LITHIUM 2023-01-22 16:35:00 Rosalind Freed [facility] CONSENT/REFUSAL FOR DIAGNOSI S AND TREATMENT 2023-01-22 14:56:09 Doctor Unassigned, [place] [facility] CONSENT/REFUSAL FOR DIAGNOSI S AND TREATMENT 2023-01-22 14:56:09 Doctor Unassigned, [place] [facility] SURGICAL PATHOLOGY EXAM 2022-11-13 13:05:00 Bossman [facility] ESOPHAGOGASTRODUODENOSCOPY 2022-11-13 12:47:00 Bossman [facility] COLONOSCOPY 2022-11-13 12:47:00 Bossman [facility] ESOPHAGOGASTRODUODENOSCOPY 2022-11-13 12:47:00 Bossman [facility] COLONOSCOPY 2022-11-13 12:47:00 Bossman [facility] COLONOSCOPY (ENDO) 2022-11-13 12:28:53 Jae Holloway [facility] COLONOSCOPY (ENDO) 2022-11-13 12:28:53 Jae Holloway [facility] COLONOSCOPY (ENDO) 2022-11-13 12:28:[facility] ([facility]) 2022-11-13 12:19:29 [facility] (ENDO) 2022-11-13 12:19:29 [facility] (ENDO) 2022-11-13 12:19:29 [facility] CONSENT/REFUSAL FOR DIAGNOSI S AND TREATMENT 2022-11-13 12:17:09 Doctor Unassigned, [place] [facility] CONSENT/REFUSAL FOR DIAGNOSI S AND TREATMENT 2022-11-13 12:17:09 Doctor Unassigned, [place] [facility] ASSIGNMENT OF BENEFITS 2022-11-13 11:59:03 Doctor Unassigned, [place] [facility] ASSIGNMENT OF BENEFITS 2022-11-13 11:59:03 Doctor Unassigned, [place] [facility] ENDOSCOPY PROCEDURE DOCUMENTATION 2022-02 0-02 05:01:00 Doctor Unassigned, [place] [facility] ENDOSCOPY PROCEDURE DOCUMENTATION 2022-02 0-02 05:01:00 Doctor Unassigned, [place] [facility] COMP. METABOLIC PANEL ([id number]) 2022-11-03 16:24:00 Dora Newman [facility] CBC WITH DIFF 2022-11-03 16:24:00 Dora Newman [facility] POCT TEST 2022-11-03 16:24:00 Dora Newman [facility] CBC WITH DIFF 2022-11-03 16:24:00 Dora Newman [facility] POCT TEST 2022-11-03 16:24:00 Dora Newman [facility] COMP. METABOLIC PANEL ([id number]) 2022-11-03 16:24:00 Dora Newman [facility] URINALYSIS 2022-11-03 16:18:00 Dora Newman [facility] URINALYSIS 2022-11-03 16:18:00 Dora Newman [facility] RAPID STREP SCREEN FOR GROUP A 2022-10-14 2 16:14:00 Dora Newman [facility] RAPID STREP SCREEN FOR GROUP A 2022-10-14 2 16:14:00 Dora Newman [facility] THROAT CULTURE 2022-11-03 16:14:00 Dora Newman [facility] CONSENT/REFUSAL FOR DIAGNOSI S AND TREATMENT 2022-11-03 15:27:05 Doctor Unassigned, [place] [facility] CONSENT/REFUSAL FOR DIAGNOSI S AND TREATMENT 2022-11-03 15:27:05 Doctor Unassigned, [place] [facility] EMERGENCY SERVICES AGREEMENT S AND AUTHORIZATIONS 2022-11-03 05:01:00 Doctor Unassigned, [place] [facility] HELICOBACTER PYLORI ANTIGEN, FECAL BY EIA 2022-10-19 13:44:00 Elidia Cordero [facility] HELICOBACTER PYLORI ANTIGEN, FECAL BY EIA 2022-10-19 13:44:00 Elidia Cordero [facility] FERRITIN SERUM 2022-10-19 13:35:00 Elidia Cordero [facility] IRON PANEL 2022-10-19 13:35:00 Elidia Cordero [facility] CELIAC SCREEN 2022-10-19 13:35:00 Elidia Cordero [facility] LAB ONLY CELIAC SCREEN IGA 2022-10-19 13:35:00 Elidia Cordero [facility] IRON PANEL 2022-10-19 13:35:00 Elidia Cordero [facility] CELIAC SCREEN 2022-10-19 13:35:00 Elidia Cordero [facility] FERRITIN SERUM 2022-10-19 13:35:00 Elidia Cordero [facility] LAB ONLY CELIAC SCREEN IGA 2022-10-19 13:35:00 Elidia Cordero [facility] DISCLOSURE AND CONSENT, MEDI JAVAD AND SURGICAL PROCEDURES 2022-10-19 05:01:00 Doctor Unassigned, [place] [facility] DISCLOSURE AND CONSENT, MEDI JAVAD AND SURGICAL PROCEDURES 2022-10-19 05:01:00 Doctor Unassigned, [place] [facility] REFERRAL- REQUEST/RESPONSE 2022-10-12 05:01:00 Doctor Unassigned, [place] [facility] REFERRAL- REQUEST/RESPONSE 2022-10-12 05:01:00 Doctor Unassigned, [place] [facility] THYROID STIMULATING HORMONE 2022-10-05 15:15:00 Abdiaziz [facility] COMP. METABOLIC PANEL ([id number]) 2022-10-05 15:15:00 Abdiaziz [facility] LIPID PANEL ([id number])(TOTAL CHOLESTEROL, TRIGLYCERIDES, HDL) 2022-10-05 15:15:00 Abdiaziz [facility] LITHIUM 2022-10-05 [facility] 2022-10-05 15:15:00 Abdiaziz [facility] GLYCOSYLATED HEMOGLOBIN (A1C) 2022-10-05 15:15:00 Abdiaziz [facility] CBC WITH DIFF 2022-10-05 15:15:00 Abdiaziz [facility] COMP. METABOLIC PANEL ([id number]) 2022-10-05 15:15:00 Abdiaziz [facility] GLYCOSYLATED HEMOGLOBIN (A1C) 2022-10-05 15:15:00 Abdiaziz [facility] LIPID PANEL ([id number])(TOTAL CHOLESTEROL, TRIGLYCERIDES, HDL) 2022-10-05 15:15:00 Abdiaziz [facility] THYROID STIMULATING HORMONE 2022-10-05 15:15:00 Abdiaziz [facility] LITHIUM 2022-10-05 15:15:00 Sara Hester [facility] ASSIGNMENT OF BENEFITS 2022-10-04 14:17:30 Doctor Unassigned, [place] [facility] ASSIGNMENT OF BENEFITS 2022-10-04 14:17:30 Doctor Unassigned, [place] [facility] LITHIUM 2022-07-26 14:49:00 Angela Sage [facility] PATIENT FINANCIAL POLICY 2022-07-26 13:16:12 Doctor Unassigned, [place] [facility] PATIENT FINANCIAL POLICY 2022-07-26 13:16:12 Doctor Unassigned, [place] [facility] EXTERNAL PROVIDER RECORDS 2022-04-08 06:01:00 Doctor Unassigned, [place] [facility] EXTERNAL PROVIDER RECORDS 2022-04-08 06:01:00 Doctor Unassigned, [place] [facility] EXTERNAL PROVIDER RECORDS 2022-02-21 06:01:00 Doctor Unassigned, [place] [facility] EXTERNAL PROVIDER RECORDS 2022-02-21 06:01:00 Doctor Unassigned, [place] [facility] 2022-02-15 15:58:00 Angela Sage [facility] CONSENT/REFUSAL FOR DIAGNOSI S AND TREATMENT 2022-01-11 17:10:16 Doctor Unassigned, [place] [facility] CONSENT/REFUSAL FOR DIAGNOSI S AND TREATMENT 2022-01-11 17:10:16 Doctor Unassigned, [place] [facility] EXTERNAL PROVIDER RECORDS 2020-11-26 05:01:00 Doctor Unassigned, [place] [facility] Tubal Ligation 1999-02-12 00:00:00 [facility] Encoun[facility] Start Date/Time End Date/Time Encounter Type Admission Type Attending [facility] Care Department Encounter ID Source 2023-12-14 15:51:00 Outpatient Jae Holloway [facility] [id number] [place] [facility] 2023-11-27 15:05:01 Outpatient Jae Holloway [facility] [id number] [place] [facility] 2020-12-13 10:09:54 Emergency [facility] [id number] [facility] 2020-12-11 04:02:45 Emergency [facility] [id number] [facility] 2024-01-30 14:39:39 2024-01-30 14:39:39 Outpatient [facility] [id number] Robert Cali 2024-01-30 00:00:00 2024-01-30 00:00:00 Outpatient Visit [facility] [id number] Robert Cali 2024-01-28 13:45:00 2024-01-28 13:45:00 Outpatient R [facility] [id number] [facility] 2024-01-25 00:00:00 2024-01-25 00:00:00 Travel [id number] [facility] 2024-01-24 00:00:00 2024-01-24 00:00:00 Talisha Chan MD: [address], [address], [place] [phone] , Ph. Critical [facility] - [id number]* [id number] [facility] 2024-01-23 00:00:00 2024-01-23 00:00:00 Talisha Chan MD: [address], [facility] [address], [place] [id number] , Ph. Critical access hospital - GC_GCBZW_[facility]u* [id number] [facility] 2024-01-22 09:30:00 2024-01-22 09:30:00 Outpatient R [facility] [id number] [facility] 2024-01-18 00:00:00 2024-01-18 00:00:00 Outpatient Visit [facility] [id number] [facility] Cali 2024-01-13 00:00:00 2024-01-13 00:00:00 Travel [id number] 1.2.840.114 350.1.13.10 4.2.7.3.698 084.8 [id number] [facility] 2024-01-04 16:41:03 2024-01-04 16:41:03 Outpatient SFA SFA [id number] Robert Cali 2024-01-04 00:00:00 2024-01-04 00:00:00 Outpatient Visit SFA [id number] Robert Cali 2023-12-26 08:50:25 2023-12-26 08:50:25 Outpatient SFA SFA [id number] Robert Cali 2023-12-19 10:24:52 2023-12-19 10:24:52 Outpatient SFA SFA [id number] Robert Cali 2023-12-11 16:28:54 2023-12-11 16:28:54 Outpatient SFA SFA [id number] Robert Cali 2023-12-11 00:00:00 2023-12-11 00:00:00 Outpatient Visit SFA [id number] Robert Cali 2023-12-05 13:46:14 2023-12-05 13:46:14 Outpatient SFA SFA [id number] 1023 Robert Cali 2023-11-27 08:13:37 2023-11-27 08:13:37 Outpatient SFA SFA [id number] Robert Cali 2023-11-27 00:00:00 2023-11-27 00:00:00 Outpatient Visit SFA [id number] Robert Cali 2023-11-27 00:00:00 2023-11-27 00:00:00 Office Visit- Est Pt.- Level 4 CLS CLS [id number] [facility] 2023-11-27 00:00:00 2023-11-27 00:00:00 (TEL) CLS CLS [id number] [facility] 2023-10-09 00:00:00 2023-11-10 18:22:03 Patient Secure Msg Doctor Unassigned, [place] 1.2.840.1 86760.1.1 3.104.2.7 .3.319655 .8 [id number] [facility] 2023-11-06 13:51:42 2023-11-06 13:51:42 Outpatient [facility] [id number] Robert Cali 2023-10-02 00:00:00 2023-11-03 18:20:51 Patient Secure Msg Doctor Unassigned, [place] 1.2.840.1 80645.1.1 3.104.2.7 .3.596755 .8 [id number] [facility] 2023-09-28 00:00:00 2023-10-02 12:14:38 Patient Secure Msg TimTavon 1.2.840.1 00081.1.1 3.104.2.7 .3.378053 .8 [id number] [facility] 2023-09-03 09:30:00 2023-09-03 11:20:53 Outpatient ALESHA AMBRIZ [facility] [id number] [facility] 2023-09-03 00:00:00 2023-09-03 00:00:00 Travel 1.2.840.1 79974.1.1 3.104.2.7 .3.776069 .8 1.2.840.114 350.1.13.10 4.2.7.3.698 084.8 [id number] [facility] 2023-08-31 00:00:00 2023-08-31 00:00:00 Travel 1.2.840.1 04428.1.1 3.104.2.7 .3.400707 .8 1.2.840.114 350.1.13.10 4.2.7.3.698 084.8 [id number] [facility] 2023-08-27 08:00:00 2023-08-27 08:00:00 Outpatient SKIP AMBRIZAH [facility] [id number] [facility] 2023-08-24 00:00:00 2023-08-24 00:00:00 Travel 1.2.840.1 94065.1.1 3.104.2.7 .3.851088 .8 1.2.840.114 350.1.13.10 4.2.7.3.698 084.8 [id number] [facility] 2023-08-08 00:00:00 2023-08-08 12:08:14 Case Management Elidia Cordero 1.2.840.1 30110.1.1 3.104.2.7 .3.505832 .8 [id number] [facility] 2023-07-02 00:00:00 2023-08-04 18:20:55 Patient Secure Msg Dominic Keita 1.2.840.1 22067.1.1 3.104.2.7 .3.193649 .8 [id number] [facility] 2023-08-03 00:00:00 2023-08-03 08:18:24 Telephone Elidia Cordero 1.2.840.1 42496.1.1 3.104.2.7 .3.790615 .8 [id number] [facility] 2023-07-30 00:00:00 2023-07-30 15:44:55 Telephone Elidia Cordero 1.2.840.1 93145.1.1 3.104.2.7 .3.897627 .8 [id number] [facility] 2023-07-26 09:30:00 2023-07-26 10:00:00 Office Visit Jose Westbrook Abdullah Azzam 1.2.840.1 21805.1.1 3.104.2.7 .3.073311 .8 [id number] [facility] 2023-07-26 09:30:00 2023-07-26 09:30:00 Outpatient Tonya WESTBROOKJARETL [facility] [id number] [facility] 2023-07-26 00:00:00 2023-07-26 00:00:00 Travel 1.2.840.1 51473.1.1 3.104.2.7 .3.047422 .8 1.2.840.114 350.1.13.10 4.2.7.3.698 084.8 [id number] [facility] 2023-07-18 10:15:00 2023-07-18 10:15:00 Outpatient FARZANA UGALDE [facility] [id number] [facility] 2023-07-16 00:00:00 2023-07-16 00:00:00 Travel 1.2.840.1 46087.1.1 3.104.2.7 .3.845648 .8 1.2.840.114 350.1.13.10 4.2.7.3.698 084.8 [id number] [facility] 2023-07-02 00:00:00 2023-07-02 12:41:14 Telephone Elidia Cordero 1.2.840.1 44508.1.1 3.104.2.7 .3.210494 .8 [id number] [facility] 2023-06-13 00:00:00 2023-06-13 10:19:53 Letter (Out) 1.2.840.1 92880.1.1 3.104.2.7 .3.553227 .8 [id number] [facility] 2023-06-07 21:35:00 2023-06-08 02:20:00 Emergency X PEPPER, MARYSOL PABON, MARYSOL [facility] ERT [id number] [facility] 2023-06-07 21:35:00 2023-06-08 02:20:00 Emergency Marysol Pabon Whitney T 1.2.840.1 17814.1.1 3.104.2.7 .3.906617 .8 [id number] [facility] 2023-06-07 00:00:00 2023-06-07 00:00:00 Travel 1.2.840.1 37692.1.1 3.104.2.7 .3.115736 .8 1.2.840.114 350.1.13.10 4.2.7.3.698 084.8 [id number] [facility] 2023-05-29 00:00:00 2023-06-04 10:54:35 Patient Secure Dominic Ly 1.2.840.1 96725.1.1 3.104.2.7 .3.681710 .8 [id number] [facility] 2023-05-28 08:45:00 2023-05-28 08:45:00 Outpatient DAVIDSON MEYER [facility] [id number] [facility] 2023-05-25 00:00:00 2023-05-25 00:00:00 Travel 1.2.840.1 18631.1.1 3.104.2.7 .3.249104 .8 1.2.840.114 350.1.13.10 4.2.7.3.698 084.8 [id number] [facility] 2023-05-22 08:17:37 2023-05-22 08:17:37 Outpatient [facility] [id number] Robert Cali 2023-05-11 00:00:00 2023-05-11 17:06:28 Telephone Elidia Cordero 1.2.840.1 32747.1.1 3.104.2.7 .3.420640 .8 [id number] [facility] 2023-05-09 00:00:00 2023-05-09 17:14:57 Patient Secure Msg Dominic Keita 1.2.840.1 00202.1.1 3.104.2.7 .3.759801 .8 [id number] [facility] 2023-05-08 10:00:00 2023-05-08 10:00:00 Outpatient R EMILIA SNOWDEN [facility] [id number] [facility] 2023-03-28 00:00:00 2023-04-28 18:05:02 Patient Secure Msg Doctor Unassigned, [place] 1.2.840.1 31459.1.1 3.104.2.7 .3.162613 .8 [id number] [facility] 2023-04-18 08:00:00 2023-04-18 08:00:00 Outpatient R FARZANA SAUCEDA [facility] [id number] [facility] 2023-04-17 00:00:00 2023-04-17 00:00:00 Travel 1.2.840.1 60263.1.1 3.104.2.7 .3.896457 .8 1.2.840.114 350.1.13.10 4.2.7.3.698 084.8 [id number] [facility] 2023-04-11 13:00:00 2023-04-11 13:00:00 Outpatient R EMILIA SNOWDEN [facility] [id number] [facility] 2023-04-11 13:00:00 2023-04-11 13:00:00 Outpatient R EMILIA SNOWDEN [facility] [id number] [facility] 2023-04-04 08:00:00 2023-04-04 08:00:00 Outpatient R [facility] [id number] [facility] 2023-04-02 00:00:00 2023-04-02 00:00:00 Travel 1.2.840.1 16408.1.1 3.104.2.7 .3.093614 .8 1.2.840.114 350.1.13.10 4.2.7.3.698 084.8 [id number] [facility] 2023-03-09 00:00:00 2023-03-09 00:00:00 Telephone Elidia Cordero 1.2.840.1 01714.1.1 3.104.2.7 .3.948708 .8 [id number] [facility] 2023-03-08 00:00:00 2023-03-08 00:00:00 Telephone Elidia Cordero 1.2.840.1 31411.1.1 3.104.2.7 .3.381753 .8 [id number] [facility] 2023-02-28 10:15:00 2023-02-28 10:15:00 Outpatient SARA DELGADILLO KIMBERLY [facility] [id number] [facility] 2023-02-27 00:00:00 2023-02-27 00:00:00 Travel 1.2.840.1 85947.1.1 3.104.2.7 .3.161774 .8 1.2.840.114 350.1.13.10 4.2.7.3.698 084.8 [id number] [facility] 2023-02-15 10:30:00 2023-02-15 10:45:00 Sustainable Communities Designer Visit Jewel Cunha [facility] 1.2.840.1 54899.1.1 3.104.2.7 .3.417285 .8 [id number] [facility] 2023-02-15 09:30:00 2023-02-15 10:00:00 Office Visit Jewel Cunha Abdullah Azzam 1.2.840.1 28602.1.1 3.104.2.7 .3.064088 .8 [id number] [facility] 2023-02-15 09:30:00 2023-02-15 09:30:00 Outpatient R JEWEL CUNHA [facility] [id number] [facility] 2023-02-15 00:00:00 2023-02-15 00:00:00 Travel 1.2.840.1 51987.1.1 3.104.2.7 .3.687739 .8 1.2.840.114 350.1.13.10 4.2.7.3.698 084.8 [id number] [facility] 2023-01-23 13:00:00 2023-01-23 13:00:00 Outpatient R JENNY ARRIAGA RIZWAN [facility] [id number] [facility] 2023-01-22 10:15:00 2023-01-22 10:30:00 Sustainable Communities Designer Visit Dexter Dias Navin [facility] 1.2.840.1 47534.1.1 3.104.2.7 .3.896556 .8 [id number] [facility] 2023-01-22 09:30:00 2023-01-22 10:07:50 Outpatient DEXTER MIRELES [facility] [id number] [facility] 2023-01-22 00:00:00 2023-01-22 00:00:00 Orders Only Doctor Unassigned, [place] 1.2.840.1 38062.1.1 3.104.2.7 .3.625829 .8 [id number] [facility] 2023-01-22 00:00:00 2023-01-22 00:00:00 Travel 1.2.840.1 38014.1.1 3.104.2.7 .3.481020 .8 1.2.840.114 350.1.13.10 4.2.7.3.698 084.8 [id number] [facility] 2023-01-15 00:00:00 2023-01-15 00:00:00 Telephone Elidia Cordero 1.2.840.1 88481.1.1 3.104.2.7 .3.409669 .8 [id number] [facility] 2023-01-12 00:00:00 2023-01-12 00:00:00 Patient Secure Msg Dominic Keita 1.2.840.1 15230.1.1 3.104.2.7 .3.750871 .8 [id number] [facility] 2022-12-29 09:30:00 2022-12-29 09:30:00 Outpatient JENNY SESAY RIZWAN [facility] [id number] [facility] 2022-12-29 00:00:00 2022-12-29 00:00:00 Telephone Elidia Cordero 1.2.840.1 04805.1.1 3.104.2.7 .3.824340 .8 [id number] [facility] 2022-12-29 00:00:00 2022-12-29 00:00:00 Telephone Elidia Cordero 1.2.840.1 40359.1.1 3.104.2.7 .3.996273 .8 [id number] [facility] 2022-12-28 00:00:00 2022-12-28 00:00:00 Case Management Elidia Cordero 1.2.840.1 28378.1.1 3.104.2.7 .3.247310 .8 [id number] [facility] 2022-12-20 16:00:00 2022-12-20 16:46:31 Outpatient R [facility] [id number] [facility] 2022-12-20 09:49:08 2022-12-20 09:49:08 Outpatient [facility] [id number] Robert Cali 2022-12-19 00:00:00 2022-12-19 00:00:00 Travel 1.2.840.1 44340.1.1 3.104.2.7 .3.919730 .8 1.2.840.114 350.1.13.10 4.2.7.3.698 084.8 [id number] [facility] 2022-12-18 09:30:00 2022-12-18 09:30:00 Outpatient R [facility] [id number] [facility] 2022-12-18 00:00:00 2022-12-18 00:00:00 Telephone Elidia Cordero 1.2.840.1 81949.1.1 3.104.2.7 .3.811947 .8 [id number] [facility] 2022-12-14 00:00:00 2022-12-14 00:00:00 Patient Secure Msg Doctor Unassigned, [place] 1.2.840.1 21678.1.1 3.104.2.7 .3.927204 .8 [id number] [facility] 2022-12-11 08:45:00 2022-12-11 08:45:00 Outpatient R [facility] [id number] [facility] 2022-12-10 00:00:00 2022-12-10 00:00:00 Outpatient GC_GCBZW_Ka darlenea_S [facility] [id number] [facility] 2022-12-08 15:30:00 2022-12-08 15:30:00 Outpatient R JENNY ARRIAGA RIZWAN [facility] [id number] [facility] 2022-12-06 08:00:00 2022-12-06 08:00:00 Outpatient ONEIDA GRANT [facility] [id number] [facility] 2022-11-29 00:00:00 2022-11-29 00:00:00 Telephone Elidia Cordero 1.2.840.1 00061.1.1 3.104.2.7 .3.062656 .8 [id number] [facility] 2022-11-27 00:00:00 2022-11-27 00:00:00 Telephone Elidia Cordero 1.2.840.1 37961.1.1 3.104.2.7 .3.805003 .8 [id number] [facility] 2022-11-27 00:00:00 2022-11-27 00:00:00 Telephone Elidia Cordero 1.2.840.1 85087.1.1 3.104.2.7 .3.265941 .8 [id number] [facility] 2022-11-23 00:00:00 2022-11-23 00:00:00 Telephone Elidia Cordero 1.2.840.1 66616.1.1 3.104.2.7 .3.776479 .8 [id number] [facility] 2022-11-23 00:00:00 2022-11-23 00:00:00 Telephone Elidia Cordero 1.2.840.1 05012.1.1 3.104.2.7 .3.993639 .8 [id number] [facility] 2022-11-22 09:30:00 2022-11-22 09:30:00 Outpatient R [facility] [id number] [facility] 2022-11-16 00:00:00 2022-11-16 00:00:00 Telephone Elidia Cordero 1.2.840.1 15555.1.1 3.104.2.7 .3.126058 .8 [id number] [facility] 2022-11-16 00:00:00 2022-11-16 00:00:00 Patient Secure Msg Dominic Keita 1.2.840.1 33902.1.1 3.104.2.7 .3.514271 .8 [id number] [facility] 2022-11-13 06:59:00 2022-11-13 09:48:00 Outpatient R MLABEL HIC[facility]ERAM [facility] [id number] [facility] 2022-11-13 06:59:00 2022-11-13 09:48:00 Hospital Encounter Dominic Keita 1.2.840.1 57292.1.1 3.104.2.7 .3.913907 .8 [id number] [facility] 2022-11-13 07:58:00 2022-11-13 08:33:00 Anesthesia Event Hunter Cruz Joan 1.2.840.1 17221.1.1 3.104.2.7 .3.765779 .8 [id number] [facility] 2022-11-13 07:15:00 2022-11-13 08:15:00 Surgery MlDominic hicks 1.2.840.1 29514.1.1 3.104.2.7 .3.886022 .8 [id number] [facility] 2022-11-13 00:00:00 2022-11-13 00:00:00 Orders Only Doctor Unassigned, [place] 1.2.840.1 12516.1.1 3.104.2.7 .3.541401 .8 [id number] [facility] 2022-11-13 00:00:00 2022-11-13 00:00:00 Telephone OnurDominic mcclellan 1.2.840.1 72195.1.1 3.104.2.7 .3.325212 .8 [id number] [facility] 2022-11-13 00:00:00 2022-11-13 00:00:00 Travel 1.2.840.1 51665.1.1 3.104.2.7 .3.571780 .8 1.2.840.114 350.1.13.10 4.2.7.3.698 084.8 [id number] [facility] 2022-11-10 00:00:00 2022-11-10 00:00:00 Outpatient R RADIOLOGY [facility] [id number] [facility] 2022-11-10 00:00:00 2022-11-10 00:00:00 Patient Secure Msg Dominic Keita 1.2.840.1 79935.1.1 3.104.2.7 .3.201871 .8 [id number] [facility] 2022-11-09 00:00:00 2022-11-09 00:00:00 Patient Secure Msg Doctor Unassigned, [place] 1.2.840.1 47703.1.1 3.104.2.7 .3.756974 .8 [id number] [facility] 2022-11-07 00:00:00 2022-11-07 00:00:00 Patient Secure Msg Doctor Unassigned, [place] 1.2.840.1 22804.1.1 3.104.2.7 .3.199786 .8 [id number] [facility] 2022-11-03 10:36:00 2022-11-03 13:16:00 Emergency X DORA NEWMAN [facility] ERT [id number] [facility] 2022-11-03 10:36:00 2022-11-03 13:16:00 Emergency Dora Newman G 1.2.840.1 48937.1.1 3.104.2.7 .3.417610 .8 [id number] [facility] 2022-11-03 00:00:00 2022-11-03 00:00:00 Travel 1.2.840.1 60110.1.1 3.104.2.7 .3.721363 .8 1.2.840.114 350.1.13.10 4.2.7.3.698 084.8 [id number] [facility] 2022-10-30 00:00:00 2022-10-30 00:00:00 Case Management Saschaanakarl Elidia Gamble 1.2.840.1 52462.1.1 3.104.2.7 .3.269560 .8 [id number] [facility] 2022-10-19 08:30:00 2022-10-19 08:45:00 Sustainable Communities Designer Visit Jewel Cunha [facility] 1.2.840.1 78178.1.1 3.104.2.7 .3.472885 .8 [id number] [facility] 2022-10-19 07:30:00 2022-10-19 08:15:30 Outpatient R JEWEL CUNHA [facility] [id number] [facility] 2022-10-19 07:30:00 2022-10-19 08:15:30 Office Visit Jewel Cunha Abdullah Azzam 1.2.840.1 93687.1.1 3.104.2.7 .3.557392 .8 [id number] [facility] 2022-10-19 00:00:00 2022-10-19 00:00:00 Orders Only Doctor Unassigned, [place] 1.2.840.1 30534.1.1 3.104.2.7 .3.462254 .8 [id number] [facility] 2022-10-18 00:00:00 2022-10-18 00:00:00 Travel 1.2.840.1 96404.1.1 3.104.2.7 .3.975671 .8 1.2.840.114 350.1.13.10 4.2.7.3.698 084.8 [id number] [facility] 2022-10-12 09:56:06 2022-10-12 09:56:06 Outpatient [facility] [id number] Robert Cali 2022-10-12 00:00:00 2022-10-12 00:00:00 Orders Only Doctor Unassigned, [place] 1.2.840.1 07693.1.1 3.104.2.7 .3.114418 .8 [id number] [facility] 2022-10-05 10:15:00 2022-10-05 10:30:00 Sustainable Communities Designer Visit Kath Vences, [facility] 1.2.840.1 82592.1.1 3.104.2.7 .3.855714 .8 [id number] [facility] 2022-10-05 10:15:00 2022-10-05 10:15:00 Outpatient R KATH VENCES [facility] [id number] [facility] 2022-10-04 09:30:00 2022-10-04 10:30:11 Outpatient R AIDE DIASLER [facility] [id number] [facility] 2022-10-04 00:00:00 2022-10-04 00:00:00 Orders Only Doctor Unassigned, [place] 1.2.840.1 02808.1.1 3.104.2.7 .3.936765 .8 [id number] [facility] 2022-10-04 00:00:00 2022-10-04 00:00:00 Travel 1.2.840.1 46015.1.1 3.104.2.7 .3.877064 .8 1.2.840.114 350.1.13.10 4.2.7.3.698 084.8 [id number] [facility] 2022-10-02 00:00:00 2022-10-02 00:00:00 Travel 1.2.840.1 62174.1.1 3.104.2.7 .3.411319 .8 1.2.840.114 350.1.13.10 4.2.7.3.698 084.8 [id number] [facility] 2022-09-06 08:45:00 2022-09-06 08:45:00 Outpatient SARA DELGADILLO KIMBERLY [facility] [id number] [facility] 2022-09-06 00:00:00 2022-09-06 00:00:00 Travel 1.2.840.1 59774.1.1 3.104.2.7 .3.345532 .8 1.2.840.114 350.1.13.10 4.2.7.3.698 084.8 [id number] [facility] 2022-07-26 11:00:00 2022-07-26 11:15:00 Sustainable Communities Designer Visit Pathology [facility]-Lab 1.2.840.1 23450.1.1 3.104.2.7 .3.354516 .8 [id number] [facility] 2022-07-26 08:45:00 2022-07-26 09:37:46 Outpatient SARA DELGADILLO KIMBERLY [facility] [id number] [facility] 2022-07-26 00:00:00 2022-07-26 00:00:00 Orders Only Doctor Unassigned, [place] 1.2.840.1 79542.1.1 3.104.2.7 .3.769106 .8 [id number] [facility] 2022-07-26 00:00:00 2022-07-26 00:00:00 Travel 1.2.840.1 35289.1.1 3.104.2.7 .3.678676 .8 1.2.840.114 350.1.13.10 4.2.7.3.698 084.8 [id number] [facility] 2022-07-24 13:24:12 2022-07-24 13:24:12 Outpatient [facility] [id number] Robert Cali 2022-06-27 13:49:18 2022-06-27 13:49:18 Outpatient [facility] [id number] Robert Cali 2022-06-21 08:52:50 2022-06-21 08:52:50 Outpatient [facility] [id number] Robert Cali 2022-06-15 15:23:34 2022-06-15 15:23:34 Outpatient [facility] [id number] Robert Cali 2022-05-31 08:45:00 2022-05-31 08:45:00 Outpatient SARA DELGADILLO KIMBERLY [facility] [id number] [facility] 2022-05-30 11:55:27 2022-05-30 11:55:27 Outpatient [facility] [id number] Robert Cali 2022-05-23 11:17:29 2022-05-23 11:17:29 Outpatient [facility] [id number] Robert Cali 2022-05-12 08:06:11 2022-05-12 08:06:11 Outpatient [facility] [id number] Robert Cali 2022-05-11 13:45:44 2022-05-11 13:45:44 Outpatient [facility] [id number] Robert Cali 2022-04-08 00:00:00 2022-04-08 00:00:00 Orders Only Doctor Unassigned, [place] 1.2.840.1 82909.1.1 3.104.2.7 .3.186347 .8 [id number] [facility] 2022-02-21 00:00:00 2022-02-21 00:00:00 Orders Only Doctor Unassigned, [place] 1.2.840.1 05335.1.1 3.104.2.7 .3.138311 .8 [id number] [facility] 2022-02-15 13:30:00 2022-02-15 13:45:00 [employer] Designer Visit Pathology [facility] 1.2.840.1 92449.1.1 3.104.2.7 .3.313656 .8 [id number] [facility] 2022-02-15 08:45:00 2022-02-15 10:52:26 Outpatient DEXTER MIRELES [facility] [id number] [facility] 2022-02-15 00:00:00 2022-02-15 00:00:00 Travel 1.2.840.1 31513.1.1 3.104.2.7 .3.630331 .8 1.2.840.114 350.1.13.10 4.2.7.3.698 084.8 [id number] [facility] 2022-01-11 11:00:00 2022-01-11 12:39:46 Outpatient SARA DELGADILLO KIMBERLY [facility] [id number] [facility] 2022-01-11 00:00:00 2022-01-11 00:00:00 Orders Only Doctor Unassigned, [place] 1.2.840.1 40913.1.1 3.104.2.7 .3.658250 .8 [id number] [facility] 2022-01-11 00:00:00 2022-01-11 00:00:00 Travel 1.2.840.1 63739.1.1 3.104.2.7 .3.732145 .8 1.2.840.114 350.1.13.10 4.2.7.3.698 084.8 [id number] [facility] 2021-11-24 09:30:00 2021-11-24 09:30:00 Outpatient IGOR Castaneda RAI [facility] [id number] [facility] 2021-11-16 11:00:00 2021-11-16 11:00:00 Outpatient SARA DELGADILLO KIMBERLY [facility] [id number] [facility] 2021-10-26 08:00:00 2021-10-26 08:00:00 Outpatient R DEXTER DIAS [facility] [id number] [facility] 2021-10-20 10:00:00 2021-10-20 10:00:00 Outpatient R IGOR SAAVEDRA [facility] [id number] [facility] 2021-10-03 14:30:00 2021-10-03 14:30:00 Outpatient R JENNIFER DAVIDSON [facility] [id number] [facility] 2021-09-21 09:30:00 2021-09-21 09:30:00 Outpatient R DEXTER DIAS [facility] [id number] [facility] 2021-08-24 09:30:00 2021-08-24 10:41:34 Outpatient R LARISSA [facility] [id number] [facility] 2021-08-24 00:00:00 2021-08-24 00:00:00 Travel 1.2.840.1 63212.1.1 3.104.2.7 .3.801198 .8 1.2.840.114 350.1.13.10 4.2.7.3.698 084.8 [id number] [facility] 2021-07-25 09:00:00 2021-07-25 09:00:00 [id number] 2021-06-22 11:15:00 2021-06-22 12:18:05 Outpatient R SARA HESTER [facility]LY [facility] [id number] [facility] 2021-06-22 11:15:00 2021-06-22 11:15:00 Outpatient R SARA HESTER KIMBERLY [facility] [id number] [facility] 2021-06-22 00:00:00 2021-06-22 00:00:00 Travel 1.2.840.1 15800.1.1 3.104.2.7 .3.548651 .8 1.2.840.114 350.1.13.10 4.2.7.3.698 084.8 [id number] [facility] 2021-06-20 11:15:00 2021-06-20 11:15:00 Outpatient R LARISSA [facility] [id number] [facility] 2021-06-20 11:15:00 2021-06-20 11:15:00 Outpatient R SELF [facility] [id number] [facility] 2021-06-08 09:20:00 2021-06-08 09:20:00 Outpatient R HILARY MOORE STRAHIL [facility] [id number] [facility] 2021-06-08 00:00:00 2021-06-08 00:00:00 Patient Secure Igor William Rai [facility] 1.2.840.114 350.1.13.10 4.2.7.2.686 [id number] [facility] 2021-06-07 09:13:00 2021-06-07 10:50:00 Emergency X GIGI MONROY [facility] ERT [id number] [facility] 2021-06-07 09:13:00 2021-06-07 10:50:00 Emergency Gigi Monroy [facility] 1.2.840.114 350.1.13.10 4.2.7.2.686 [id number] [facility] 2021-06-07 09:13:00 2021-06-07 10:50:00 Emergency Gigi Monroy 1.2.840.1 18815.1.1 3.104.2.7 .3.122181 .8 [id number] [facility] 2021-06-07 00:00:00 2021-06-07 00:00:00 Outpatient R IGOR SAAVEDRA [facility] [id number] [facility] 2021-06-07 00:00:00 2021-06-07 00:00:00 Orders Only Doctor Unassigned, [place] [facility] 1.2.840.114 350.1.13.10 4.2.7.2.686 [id number] [facility] 2021-06-07 00:00:00 2021-06-07 00:00:00 Travel 1.2.840.1 57992.1.1 3.104.2.7 .3.643281 .8 1.2.840.114 350.1.13.10 4.2.7.3.698 084.8 [id number] [facility] 2021-06-07 00:00:00 2021-06-07 00:00:00 Orders Only Doctor Unassigned, [place] 1.2.840.1 19834.1.1 3.104.2.7 .3.239908 .8 [id number] [facility] 2021-06-03 00:00:00 2021-06-03 00:00:00 Travel 1.2.840.1 16213.1.1 3.104.2.7 .3.258594 .8 1.2.840.114 350.1.13.10 4.2.7.3.698 084.8 [id number] [facility] 2021-05-27 00:00:00 2021-05-27 00:00:00 Outpatient IGOR Castaneda RAI [facility] [id number] [facility] 2021-05-27 00:00:00 2021-05-27 00:00:00 Outpatient IGOR Castaneda RAI [facility] [id number] [facility] 2021-05-25 00:00:00 2021-05-25 00:00:00 Patient Secure Msg Doctor Unassigned, [place] [facility] 1.2.840.114 350.1.13.10 4.2.7.2.686 [id number] [facility] 2021-05-25 00:00:00 2021-05-25 00:00:00 Patient Secure Msg Doctor Unassigned, [place] 1.2.840.1 07710.1.1 3.104.2.7 .3.130042 .8 [id number] [facility] 2021-05-20 00:00:00 2021-05-20 00:00:00 Telephone Zane Martinez 1.2.840.1 86861.1.1 3.104.2.7 .3.429977 .8 [id number] [facility] 2021-05-20 00:00:00 2021-05-20 00:00:00 Telephone Zane Martinez 1.2.840.1 49199.1.1 3.104.2.7 .3.393476 .8 [id number] [facility] 2021-05-18 00:00:00 2021-05-18 00:00:00 Travel 1.2.840.1 02722.1.1 3.104.2.7 .3.098971 .8 1.2.840.114 350.1.13.10 4.2.7.3.698 084.8 [id number] [facility] 2021-05-18 00:00:00 2021-05-18 00:00:00 Travel 1.2.840.1 63039.1.1 3.104.2.7 .3.162196 .8 1.2.840.114 350.1.13.10 4.2.7.3.698 084.8 [id number] [facility] 2021-05-17 13:15:00 2021-05-17 13:30:00 Sustainable Communities Designer Visit Pcp-Lab Igor Saavedra [facility] 1.2.840.114 350.1.13.10 4.2.7.2.686 [id number] [facility] 2021-05-17 13:15:00 2021-05-17 13:30:00 Sustainable Communities Designer Visit Igor Saavedra Pcp[facility]Lab 1.2.840.1 84421.1.1 3.104.2.7 .3.920303 .8 [id number] [facility] 2021-05-17 13:15:00 2021-05-17 13:30:00 Sustainable Communities Designer Visit Igor Saavedra Pcp[facility]Lab 1.2.840.1 36515.1.1 3.104.2.7 .3.531365 .8 [id number] [facility] 2021-05-17 09:00:00 2021-05-17 10:25:05 Outpatient R IGOR SAAVEDRA [facility] [id number] [facility] 2021-05-17 09:00:00 2021-05-17 10:25:05 Office Visit Igor Saavedra Neeharika 1.2.840.1 82723.1.1 3.104.2.7 .3.249362 .8 [id number] [facility] 2021-05-17 09:00:00 2021-05-17 10:25:05 Outpatient R IGOR SAAVEDRA [facility] [id number] [facility] 2021-05-17 09:30:00 2021-05-17 09:30:00 Outpatient R IGOR SAAVEDRA [facility] [id number] [facility] 2021-05-17 00:00:00 2021-05-17 00:00:00 Travel 1.2.840.1 88227.1.1 3.104.2.7 .3.917951 .8 1.2.840.114 350.1.13.10 4.2.7.3.698 084.8 [id number] [facility] 2021-05-17 00:00:00 2021-05-17 00:00:00 Travel 1.840.1 32852.1.1 3.104.2.7 .3.092764 .8 .840.114 350.1.13.10 4.2.7.3.698 084.8 [id number] [facility] 2021-04-26 09:00:00 2021-04-26 09:00:00 Outpatient R [facility] [id number] [facility] 2021-04-26 09:00:00 2021-04-26 09:00:00 Outpatient R WENDY, AVELINO [facility] [id number] [facility] 2021-04-20 08:45:00 2021-04-20 08:45:00 Outpatient SARA DELGADILLO KIMBERLY [facility] [id number] [facility] 2021-04-11 08:40:00 2021-04-11 08:40:00 Outpatient SALLY FIGUEROA HOWARD [facility] [id number] [facility] 2021-04-11 08:40:00 2021-04-11 08:40:00 Outpatient SALLY FIGUEROA HOWARD [facility] [id number] [facility] 2021-03-21 08:00:00 2021-03-21 08:00:00 Outpatient SALLY FIGUEROA HOWARD [facility] [id number] [facility] 2021-03-17 00:00:00 2021-03-17 00:00:00 Patient Secure Msg Doctor Unassigned, [place] [facility] 1..840.114 350.1.13.10 4.2.7.2.686 [id number] [facility] 2021-03-17 00:00:00 2021-03-17 00:00:00 Patient Secure Msg Doctor Unassigned, [place] ..840.1 89613.1.1 3.104.2.7 .3.154866 .8 [id number] [facility] 2021-03-17 00:00:00 2021-03-17 00:00:00 Patient Secure Msg Doctor Unassigned, [place] 1.2840.1 10733.1.1 3.104.2.7 .3.028832 .8 [id number] [facility] 2021-03-16 13:15:00 2021-03-16 13:30:00 Sustainable Communities Designer Visit Salbador Lockwood Pcp[facility] 1.2840.1 19834.1.1 3.104.2.7 .3.435346 .8 [id number] [facility] 2021-03-16 13:15:00 2021-03-16 13:30:00 Sustainable Communities Designer Visit Salbador Lockwood [facility]cp[facility] 1.2840.1 78927.1.1 3.104.2.7 .3.599280 .8 [id number] [facility] 2021-03-16 13:15:00 2021-03-16 13:15:00 Outpatient SALBADOR CRONIN [facility] [id number] [facility] 2021-03-16 12:00:00 2021-03-16 12:09:51 Outpatient SARA DELGADILLO KIMBERLY [facility] [id number] [facility] 2021-03-16 12:00:00 2021-03-16 12:09:51 Outpatient SARA DELGADILLO KIMBERLY [facility] [id number] [facility] 2021-03-16 12:00:00 2021-03-16 12:00:00 Outpatient SARA DELGADILLO KIMBERLY [facility] [id number] [facility] 2021-03-16 00:00:00 2021-03-16 00:00:00 Travel 1.840.1 96152.1.1 3.104.2.7 .3.946217 .8 1.2.840.114 350.1.13.10 4.2.7.3.698 084.8 [id number] [facility] 2021-03-16 00:00:00 2021-03-16 00:00:00 Travel 1.2.840.1 85424.1.1 3.104.2.7 .3.931546 .8 1.2.840.114 350.1.13.10 4.2.7.3.698 084.8 [id number] [facility] 2021-03-11 09:44:00 2021-03-11 13:06:00 Emergency X HALIMA CONNOR [facility] ERT [id number] [facility] 2021-03-11 09:44:00 2021-03-11 13:06:00 Emergency Halima Connor 1.2.840.1 47597.1.1 3.104.2.7 .3.689132 .8 [id number] [facility] 2021-03-11 09:44:00 2021-03-11 13:06:00 Emergency X HALIMA CONNOR [facility] ERT [id number] [facility] 2021-03-11 09:44:00 2021-03-11 13:06:00 Emergency Halima Connor 1.2.840.1 95339.1.1 3.104.2.7 .3.383902 .8 [id number] [facility] 2021-03-11 09:44:00 2021-03-11 13:06:00 Emergency X HALIMA CONNOR [facility] ERT [id number] [facility] 2021-03-11 09:44:00 2021-03-11 09:44:00 Emergency X HALIMA CONNOR [facility] ERT [id number] [facility] 2021-03-11 00:00:00 2021-03-11 00:00:00 Travel 1.2.840.1 04630.1.1 3.104.2.7 .3.909493 .8 1.2.840.114 350.1.13.10 4.2.7.3.698 084.8 [id number] [facility] 2021-03-11 00:00:00 2021-03-11 00:00:00 Travel 1.2.840.1 24267.1.1 3.104.2.7 .3.075783 .8 1.2.840.114 350.1.13.10 4.2.7.3.698 084.8 [id number] [facility] 2021-03-08 15:00:00 2021-03-08 15:15:00 Sustainable Communities Designer Visit Salbador Lockwood Pcp-Lab 1.2.840.1 01384.1.1 3.104.2.7 .3.104498 .8 [id number] [facility] 2021-03-08 15:00:00 2021-03-08 15:15:00 Sustainable Communities Designer Visit Salbador Lockwood Pcp-Lab 1.2.840.1 66347.1.1 3.104.2.7 .3.693137 .8 [id number] [facility] 2021-03-08 15:00:00 2021-03-08 15:00:00 Outpatient R SALBADOR LOCKWOOD [facility] [id number] [facility] 2021-01-31 10:15:00 2021-01-31 10:55:06 Outpatient R DEXTER DIAS [facility] [id number] [facility] 2020-12-29 08:00:00 2020-12-29 08:41:00 Outpatient R DEXTER DIAS [facility] [id number] [facility] 2020-12-29 08:00:00 2020-12-29 08:41:00 Outpatient R SELFDEXTER [facility] [id number] [facility] 2020-12-29 00:00:00 2020-12-29 00:00:00 Travel 1.2.840.1 38461.1.1 3.104.2.7 .3.110895 .8 1.2.840.114 350.1.13.10 4.2.7.3.698 084.8 [id number] [facility] 2020-12-29 00:00:00 2020-12-29 00:00:00 Travel 1.2.840.1 73817.1.1 3.104.2.7 .3.091946 .8 1.2.840.114 350.1.13.10 4.2.7.3.698 084.8 [id number] [facility] 2020-12-22 09:30:00 2020-12-22 09:30:00 Outpatient R LARISSA [facility] [id number] [facility] 2020-12-22 09:30:00 2020-12-22 09:30:00 Outpatient DEXTER MIRELES [facility] [id number] [facility] 2020-11-26 00:00:00 2020-11-26 00:00:00 Orders Only Doctor Unassigned, [place] [facility] 1.2.840.114 350.1.13.10 4.2.7.2.686 [id number] [facility] 2020-11-10 09:30:00 2020-11-10 09:30:00 Outpatient ROBERT MURILLO [facility] [id number] [facility] 2020-11-10 00:00:00 2020-11-10 00:00:00 Orders Only Doctor Unassigned, [place] 1.2.840.1 14142.1.1 3.104.2.7 .3.156843 .8 [id number] [facility] 2020-11-10 00:00:00 2020-11-10 00:00:00 Travel 1.2.840.1 63249.1.1 3.104.2.7 .3.848997 .8 1.2.840.114 350.1.13.10 4.2.7.3.698 084.8 [id number] [facility] 2020-10-11 08:00:00 2020-10-11 08:00:00 Outpatient R SELF [facility] [id number] [facility] 2020-10-11 00:00:00 2020-10-11 00:00:00 Travel 1.2.840.1 92868.1.1 3.104.2.7 .3.742348 .8 1.2.840.114 350.1.13.10 4.2.7.3.698 084.8 [id number] [facility] 2020-09-13 08:00:00 2020-09-13 08:00:00 Outpatient R SELF, [facility] [id number] [facility] 2020-09-13 00:00:00 2020-09-13 00:00:00 Travel 1.2.840.1 15450.1.1 3.104.2.7 .3.131305 .8 1.2.840.114 350.1.13.10 4.2.7.3.698 084.8 [id number] [facility] 2020-09-02 16:12:00 2020-09-02 20:21:00 Emergency Patti Rose [facility] 1.2.840.114 350.1.13.10 4.2.7.2.686 [id number] 2020-09-02 16:12:00 2020-09-02 20:21:00 Emergency Patti Rose 1.2.840.1 27556.1.1 3.104.2.7 .3.331472 .8 [id number] [facility] 2020-09-02 00:00:00 2020-09-02 00:00:00 Orders Only Doctor Unassigned, [place] [facility] 1.2.840.114 350.1.13.10 4.2.7.2.686 [id number] 2020-09-02 00:00:00 2020-09-02 00:00:00 Travel 1.2.840.1 48601.1.1 3.104.2.7 .3.377943 .8 1.2.840.114 350.1.13.10 4.2.7.3.698 084.8 [id number] [facility] 2020-09-02 00:00:00 2020-09-02 00:00:00 Orders Only Doctor Unassigned, [place] 1.2.840.1 07164.1.1 3.104.2.7 .3.015925 .8 [id number] [facility] 2020-08-25 09:15:00 2020-08-25 09:15:00 Outpatient R [facility] [id number] [facility] 2020-08-09 08:45:00 2020-08-09 08:45:00 Outpatient R DEXTER DIAS [facility] [id number] [facility] 2020-06-28 13:45:00 2020-06-28 13:45:00 Outpatient R SALBADOR LOCKWOOD [facility] [id number] [facility] 2020-06-21 15:15:00 2020-06-21 15:15:00 Outpatient R DEXTER DIAS [facility] [id number] [facility] 2020-06-07 08:45:00 2020-06-07 08:45:00 Outpatient R DEXTER DIAS [facility] [id number] [facility] 2020-05-25 08:30:00 2020-05-25 08:30:00 Outpatient R CRISTO MARTINEZ [facility] [id number] [facility] 2020-03-15 13:00:00 2020-03-15 13:00:00 Outpatient R SALBADOR LOCKWOOD [facility] [id number] [facility] 2020-03-08 13:00:00 2020-03-08 13:00:00 Outpatient R DEXTER DIAS [facility] [id number] [facility] 2020-02-16 11:00:00 2020-02-16 11:00:00 Outpatient R DEXTER DIAS [facility] [id number] [facility] 2020-01-27 11:45:00 2020-01-27 11:45:00 Outpatient R DEXTER DIAS [facility] [id number] [facility] 2020-01-19 08:00:00 2020-01-19 08:00:00 [facility] [id number] 2019-12-22 08:45:00 2019-12-22 08:45:00 Outpatient R DEXTER DIAS [facility] [id number] [facility] 2019-12-05 10:45:00 2019-12-05 10:45:00 Outpatient JEWEL GR [facility] [id number] [facility] 2019-10-23 09:15:00 2019-10-23 09:15:00 Outpatient KATH GLORIA [facility] [id number] [facility] 2019-10-15 11:30:00 2019-10-15 11:30:00 Outpatient ROBERT MURILLO [facility] [id number] [facility] 2019-10-01 14:30:00 2019-10-01 14:30:00 Outpatient ROBERT MURILLO [facility] [id number] [facility] 2019-09-01 08:45:00 2019-09-01 08:45:00 Outpatient R DEXTER DIAS [facility] [id number] [facility] 2019-08-06 13:00:00 2019-08-06 13:00:00 Outpatient ANGELA HERRERA [facility] [id number] [facility] Results Test Description Test Time Test Comments Results Result Co mments Source [facility] MedicalThyrotropin [Units/volume] in Serum or [id number] 00:00:00* Test Item Value Reference Range Interpretation Comme nts TSH (test code = TSH) 1.100 uIU/mL 0.500-4.530 [facility] MedicalEstradiol (E2) [Mass/volume] in Serum or [id number] 00:00:00 * Test Item Value Reference Range Interpretation Comme nts estradiol (test code = estradiol) 81.3 pg/mL 6.1-91.9 [facility] MedicalFollitropin [Units/volume] in Serum or [id number] 00:00:00* Test Item Value Reference Range Interpretation Comme nts FSH (test code = FSH) 3.9 mIU/mL [facility] Medicalurinalysis, [id number] 08:44:12* Test Item Value Reference Range Interpretation Comme nts Leukocytes (test code = Leukocytes) 1+ Nitrite (test code = Nitrite) negative Urobilinogen (test code = Urobilinogen) Normal Protein (test code = Protein) Negative pH (test code = pH) 6.0 Blood (test code = Blood) Non-Hemolyzed: Moderate Specific [place] (test code = Specific [place]) 1.020 Ketone (test code = Ketone) Negative Bilirubin (test code = Bilirubin) Negative Glucose (test code = Glucose) Negative Appearance (test code = Appearance) Slightly Cloudy Color (test code = Color) Yellow [facility] (ANTI-NUCLEAR AB) WITH REFLEX [id number] 00:00:00* Test Item Value Reference Range Interpretation Comme [facility] ANTI-NUCLEAR ANTIBODIES (aram t code = 3506) NEGATIVE YAZMIN PATTERN (REPORTED TITER) (test code = 11357) SEE BELOW HOMOGENEOUS (test code = 37662) NEGATIVE TITER SPECKLED (test code = 817027) NEGATIVE TITER DENSE FINE SPECKLED (test co de = 95858) NEGATIVE TITER CENTROMERE (test code = 219105) NEGATIVE TITER COARSE SPECKLED (test code = 545063) NEGATIVE TITER DISCRETE NUCLEAR DOTS (test code = 898834) NEGATIVE TITER NUCLEOLAR (test code = 411405) NEGATIVE TITER NUCLEAR MEMBRANE (test code = 387954) NEGATIVE TITER CYTO. RETICULAR (SANDY) (test code = 299220) NEGATIVE COMMENTS (test code = 382437) NONE METHOD (test code = 70249) (NOTE) Robert Ambrose AustinCOMPLEMENT, TOTAL [id number] 00:00:00* Test Item Value Reference Range Interpretation Comme nts COMPLEMENT, TOTAL HEM (test code = 3508) 61 U/mL Robert CalidsDNA [id number] 00:00:00* Test Item Value Reference Range Interpretation Comme nts dsDNA ANTIBODY (test code = 4287) <1.0 IU/ML Robert CaliC-REACTIVE [id number] 00:00:00* Test Item Value Reference Range Interpretation Comme nts C-REACTIVE PROTEIN (test cod e = 3513) 0.6 MG/DL Robert Ambrose AustinSEDIMENTATION [id number] 00:00:00* Test Item Value Reference Range Interpretation Comme nts SEDIMENTATION RATE (test cod e = 1017) 5 MM/HOUR Robetr CaliRHEUMATOID FACTOR, [id number] 00:00:00* Test Item Value Reference Range Interpretation Comme evelia RHEUMATOID FACTOR, QUANT (te st code = 3502) <10 IU/ML Robert CaliRETICULOCYTE [id number] 00:00:00* Test Item Value Reference Range Interpretation Comme nts RETICULOCYTE HEMOGLOBIN (aram t code = 54374) 26.3 PG Robert CaliCBC W/AUTO [id number] 00:00:00* Test Item Value Reference Range Interpretation [...] ABS NUCLEATED RBCS (test cod e = 92881) 0.00 K/UL Robert Ambrose Rummble LabsC W/AUTO [id number] 00:00:00* Test Item Value Reference Range Interpretation [...] ABS NUCLEATED RBCS (test cod e = 88147) 0.00 K/UL Robert Ambrose RoombeatsCBC W/AUTO [id number] 00:00:00* Test Item Value Reference Range Interpretation [...] ABS NUCLEATED RBCS (test cod e = 86349) 0.00 K/UL Robert Ambrose [id number] 05:10:38* Test Item Value Reference Range Interpretation Comme nts FERRITIN (test code = 2075) 69 NG/ML 13-200 CBC W/AUTO DIFF WITH [id number] 02:22:56* Test Item Value Reference Range Interpretation [...] 0.00-0.10 ABS NUCLEATED RBCS (test code = 71920) 0.00 K/UL 0.00-0.11 UNLESS OTHER SPARROW INDICATED, ALL TESTING PERFORMED AT [facility] [address] [place] [address] STAFF PHARMACIST HOSPITAL: CHARLA HERNANDEZ M.D. CLIA NUMBER [id number] [facility] [place]. [id number] 00:00:00* Test Item Value Reference Range Interpretation Comme nts FERRITIN (test code = 2075) 69 NG/ML Robert Ambrose [facility] W/AUTO [id number] 00:00:00* Test Item Value Reference Range Interpretation [...] ABS NUCLEATED RBCS (test cod e = 87704) 0.00 K/UL Robert Ambrose [id number] 00:00:00* Test Item Value Reference Range Interpretation Comme nts FERRITIN (test code = 2075) 69 NG/ML Robert CaliCBC W/AUTO [id number] 00:00:00* Test Item Value Reference Range Interpretation [...] ABS NUCLEATED RBCS (test cod e = 89228) 0.00 K/UL Robert [id number] 00:00:00* Test Item Value Reference Range Interpretation Comme nts FERRITIN (test code = 2075) 69 NG/ML Robert CaliCBC W/AUTO [id number] 00:00:00* Test Item Value Reference Range Interpretation [...] ABS NUCLEATED RBCS (test cod e = 38964) 0.00 K/UL Robert Bailon (ANTI-NUCLEAR AB) WITH REFLEX [id number] 06:46:04* Test Item Value Reference Range Interpretation Comme nts ANTI-NUCLEAR ANTIBODIES (test code = 3506) NEGATIVE NEGATIVE Methodology is I ndirect Immunofluorescent Assay (IFA) with a titering system using [id number] cells (Hep2 cells transfected with SS-A/Ro). YAZMIN PATTERN (REPORTED TITER) (test code = 22598) SEE BELOW HOMOGENEOUS (test code = 61765) NEGATIVE TITER NEGATIVE SPECKLED (test code = 742372) NEGATIVE TITER NEGATIVE DENSE FINE SPECKLED (test code = 97604) NEGATIVE TITER NEGATIVE CENTROMERE (test code = 375626) NEGATIVE TITER NEGATIVE COARSE SPECKLED (test code = 104598) NEGATIVE TITER NEGATIVE DISCRETE NUCLEAR DOTS (test code = 807250) NEGATIVE TITER NEGATIVE NUCLEOLAR (test code = 741782) NEGATIVE TITER NEGATIVE NUCLEAR MEMBRANE (test code = 802140) NEGATIVE TITER NEGATIVE CYTO. RETICULAR (SANDY) (test code = 384361) NEGATIVE NEGATIVE COMMENTS (test code = 554959) NONE METHOD (test code = 78792) (NOTE) TESTING PERFORME D BY [employer] (ML4D)A [employer] IFA PLATFORM.THE METHOD INCLUDES A SCREEN THRESHOLD OF 1:80, DIGITIZED AND COMPUTER ALGORITHM-ASSISTED INTERPRETATION OF TITERS AND DIGITAL PATTERNS, AND HEp-2 CELL LINE SUBSTRATE. ADDITIONAL UNUSUAL PATTERNS WILL BE GIVEN COMMENTS.FOR MORE INFORMATION, SEE [email or web address] ting UNLESS OTHERWISE INDICATED, ALL TESTING PERFORMED AT [facility] [address] [facility] [place] [address] STAFF PHARMACIST HOSPITAL: Mary RUIZ NUMBER [id number] [place]. [id number] NOTE:2023-12-07 06:05:36* Test Item Value Reference Range Interpretation Comme nts NOTE: (test code = 998) (NOTE) IN ACCORDANCE [facility] FEDERAL GUIDELINES REQUIRING ALL VERBAL REQUESTS FOR LABORATORY TESTS TO BE ACCOMPANIED BY WRITTEN AUTHORIZATION WITHIN 30 DAYS OF THIS REQUEST, PLEASE SIGN BELOW AND RETURN A COPY OF THIS REPORT BY FAX TO THE LABORATORY SCANNING DEPARTMENT AT [phone]. PHYSICIAN'S SIGNATURE DATE NOTE: [ADDED]2023-12-07 00:00:00* Test Item Value Reference Range Interpretation Comme nts NOTE: (test code = 998) (NOTE) Robert Ambrose Adamaris (ANTI-NUCLEAR AB) WITH REFLEX TITER [ADDED]2023-12-07 00:00:00* Test Item Value Reference Range Interpretation Comme nts ANTI-NUCLEAR ANTIBODIES (aram t code = 3506) NEGATIVE YAZMIN PATTERN (REPORTED TITER) (test code = 72302) SEE BELOW HOMOGENEOUS (test code = 42494) NEGATIVE TITER SPECKLED (test code = 054715) NEGATIVE TITER DENSE FINE SPECKLED (test co de = 30452) NEGATIVE TITER CENTROMERE (test code = 961748) NEGATIVE TITER COARSE SPECKLED (test code = 570783) NEGATIVE TITER DISCRETE NUCLEAR DOTS (test code = 675475) NEGATIVE TITER NUCLEOLAR (test code = 096763) NEGATIVE TITER NUCLEAR MEMBRANE (test code = 339786) NEGATIVE TITER CYTO. RETICULAR (SANDY) (test code = 034326) NEGATIVE COMMENTS (test code = 788442) NONE METHOD (test code = 45671) (NOTE) Robert Ambrose VirajNOTE: [ADDED]2023-12-07 00:00:00* Test Item Value Reference Range Interpretation Comme nts NOTE: (test code = 998) (NOTE) Robert Ambrose Adamaris (ANTI-NUCLEAR AB) WITH REFLEX TITER [ADDED]2023-12-07 00:00:00* Test Item Value Reference Range Interpretation Comme nts ANTI-NUCLEAR ANTIBODIES (aram t code = 3506) NEGATIVE YAZMIN PATTERN (REPORTED TITER) (test code = 16310) SEE BELOW HOMOGENEOUS (test code = 13358) NEGATIVE TITER SPECKLED (test code = 464112) NEGATIVE TITER DENSE FINE SPECKLED (test co de = 59105) NEGATIVE TITER CENTROMERE (test code = 131846) NEGATIVE TITER COARSE SPECKLED (test code = 955367) NEGATIVE TITER DISCRETE NUCLEAR DOTS (test code = 214453) NEGATIVE TITER NUCLEOLAR (test code = 458359) NEGATIVE TITER NUCLEAR MEMBRANE (test code = 053541) NEGATIVE TITER CYTO. RETICULAR (SANDY) (test code = 263201) NEGATIVE COMMENTS (test code = 468271) NONE METHOD (test code = 64474) (NOTE) Robert Ambrose VirajNOTE: [ADDED]2023-12-07 00:00:00* Test Item Value Reference Range Interpretation Comme nts NOTE: (test code = 998) (NOTE) Robert Bailon (ANTI-NUCLEAR AB) WITH REFLEX TITER [ADDED]2023-12-07 00:00:00* Test Item Value Reference Range Interpretation Comme nts ANTI-NUCLEAR ANTIBODIES (aram t code = 3506) NEGATIVE YAZMIN PATTERN (REPORTED TITER) (test code = 58393) SEE BELOW HOMOGENEOUS (test code = 13005) NEGATIVE TITER SPECKLED (test code = 839614) NEGATIVE TITER DENSE FINE SPECKLED (test co de = 45995) NEGATIVE TITER CENTROMERE (test code = 905783) NEGATIVE TITER COARSE SPECKLED (test code = 460638) NEGATIVE TITER DISCRETE NUCLEAR DOTS (test code = 982425) NEGATIVE TITER NUCLEOLAR (test code = 908261) NEGATIVE TITER NUCLEAR MEMBRANE (test code = 079261) NEGATIVE TITER CYTO. RETICULAR (SANDY) (test code = 756086) NEGATIVE COMMENTS (test code = 889182) NONE METHOD (test code = 57408) (NOTE) Robert Ambrose VirajNOTE: [ADDED]2023-12-07 00:00:00* Test Item Value Reference Range Interpretation Comme nts NOTE: (test code = 998) (NOTE) Robert Ambrose Adamaris (ANTI-NUCLEAR AB) WITH REFLEX TITER [ADDED]2023-12-07 00:00:00* Test Item Value Reference Range Interpretation Comme nts ANTI-NUCLEAR ANTIBODIES (aram t code = 3506) NEGATIVE YAZMIN PATTERN (REPORTED TITER) (test code = 23605) SEE BELOW HOMOGENEOUS (test code = 44835) NEGATIVE TITER SPECKLED (test code = 744332) NEGATIVE TITER DENSE FINE SPECKLED (test co de = 61931) NEGATIVE TITER CENTROMERE (test code = 293675) NEGATIVE TITER COARSE SPECKLED (test code = 023276) NEGATIVE TITER DISCRETE NUCLEAR DOTS (test code = 853085) NEGATIVE TITER NUCLEOLAR (test code = 880496) NEGATIVE TITER NUCLEAR MEMBRANE (test code = 874871) NEGATIVE TITER CYTO. RETICULAR (SANDY) (test code = 490754) NEGATIVE COMMENTS (test code = 043406) NONE METHOD (test code = 92765) (NOTE) Robert Ambrose AustinPROTEIN ELECTROPHORESIS, [id number] 14:58:50* Test Item Value Reference Range Interpretation [...] HUSSEIN M.D. VITAMIN B 12 AND FOLIC [id number] 05:31:25* Test Item Value Reference Range Interpretation [...] . . . UG/L >=6.0 COMPREHENSIVE METABOLIC [id number] 04:03:47* Test Item Value Reference Range Interpretation Comme nts GLUCOSE (test code = 2217) 95 MG/DL 70-99 BUN (test code = 2207) 13 MG/DL 6-20 CREATININE (test code = 221) 0.65 MG/DL 0.60-1.30 eGFR (2020 CKD-EPI) (test code = 53954) 110 ML/MIN/1.73 >60 CALC BUN/CREAT (test code = 2235) 20 RATIO 6-28 SODIUM (test code = 223) 139 MEQ/L 133-146 POTASSIUM (test code = 2228) 4.6 MEQ/L 3.5-5.4 CHLORIDE (test code = 2215) 103 MEQ/L 95-107 CARBON DIOXIDE (test code = 2206) 25 MEQ/L 19-31 CALCIUM (test code = 2209) 10.1 MG/DL 8.5-10.5 PROTEIN, TOTAL (test code = 222) 6.7 G/DL 6.1-8.3 ALBUMIN (test code = 2201) 4.5 G/DL 3.5-5.2 CALC GLOBULIN (test code = 2240) 2.2 G/DL 1.9-3.7 CALC A/G RATIO (test code = 223) 2.0 RATIO 1.0-2.6 BILIRUBIN, TOTAL (test code = 220) <0.2 MG/DL <=1.2 ALKALINE PHOSPHATASE (test code = 2204) 144 U/L 40-118 H AST (test code = 2218) 16 U/L 9-40 ALT (test code = 2219) 16 U/L 5-40 UNLESS OTHERWISE INDICATED, ALL TESTING PERFORMED AT [facility] [address] [place] [address] [facility]FF [facility]ARM[facility]IST [facility]: CHARLA HERNANDEZ M.D. CLIA NUMBER [id number] [place]. [id number] CBC W/AUTO DIFF WITH [id number] 03:00:25* Test Item Value Reference Range Interpretation [...] = 1065) 0.0 /100 WBC'S See_Comment [Automated Mebelramaa ge] The system which generated this result [...] 0.00-0.10 ABS NUCLEATED RBCS (test code = 16097) 0.00 K/UL 0.00-0.11 VITAMIN B 12 AND FOLIC [id number] 00:00:00* Test Item Value Reference Range Interpretation Comme nts VITAMIN B-12 (test code = 2840) 380 PG/ML FOLIC ACID (test code = 2695) 7.0 UG/L Robert CaliPROTEIN ELECTROPHORESIS, [id number] 00:00:00* Test Item Value Reference Range Interpretation [...] = 2568) (NOTE) Robert Ambrose VirajCBC W/AUTO [id number] 00:00:00* Test Item Value Reference Range Interpretation [...] ABS NUCLEATED RBCS (test cod e = 62957) 0.00 K/UL Robert CaliCOMPREHENSIVE METABOLIC [id number] 00:00:00* Test Item Value Reference Range Interpretation Comme nts GLUCOSE (test code = 2217) 95 MG/DL BUN (test code = 2208) 13 MG/DL CREATININE (test code = 2214) 0.65 MG/DL eGFR (2020 CKD-EPI) (test code = 50587) 110 ML/MIN/1.73 CALC BUN/CREAT (test code = [...] U/L Robert CaliVITAMIN B 12 AND FOLIC [id number] 00:00:00* Test Item Value Reference Range Interpretation Comme nts VITAMIN B-12 (test code = 2840) 380 PG/ML FOLIC ACID (test code = 2695) 7.0 UG/L Robert CaliPROTEIN ELECTROPHORESIS, [id number] 00:00:00* Test Item Value Reference Range Interpretation [...] (test code = 2568) (NOTE) Robert Ambrose [facility] W/AUTO [id number] 00:00:00* Test Item Value Reference Range Interpretation [...] ABS NUCLEATED RBCS (test cod e = 33298) 0.00 K/UL Robert CaliCOMPREHENSIVE METABOLIC [id number] 00:00:00* Test Item Value Reference Range Interpretation Comme nts GLUCOSE (test code = 2217) 95 MG/DL BUN (test code = 2208) 13 MG/DL CREATININE (test code = 2214) 0.65 MG/DL eGFR (2020 CKD-EPI) (test code = 49424) 110 ML/MIN/1.73 CALC BUN/CREAT (test code = [...] U/L Robert CaliVITAMIN B 12 AND FOLIC [id number] 00:00:00* Test Item Value Reference Range Interpretation Comme nts VITAMIN B-12 (test code = 2840) 380 PG/ML FOLIC ACID (test code = 2695) 7.0 UG/L Robert CaliPROTEIN ELECTROPHORESIS, [id number] 00:00:00* Test Item Value Reference Range Interpretation [...] code = 2568) (NOTE) Robert CaliCBC W/AUTO [id number] 00:00:00* Test Item Value Reference Range Interpretation [...] ABS NUCLEATED RBCS (test cod e = 33644) 0.00 K/UL Robert CaliCOMPREHENSIVE METABOLIC [id number] 00:00:00* Test Item Value Reference Range Interpretation Comme nts GLUCOSE (test code = 7) 95 MG/DL BUN (test code = 2208) 13 MG/DL CREATININE (test code = 2214) 0.65 MG/DL eGFR (2020 CKD-EPI) (test code = ) 110 ML/MIN/1.73 CALC BUN/CREAT (test code = 2235) 20 RATIO SODIUM (test code = 2231) 139 MEQ/L POTASSIUM (test code = 2228) 4.6 MEQ/L CHLORIDE (test code = 2215) 103 MEQ/L CARBON DIOXIDE (test code = 2206) 25 MEQ/L CALCIUM (test code = 2209) 10.1 MG/DL PROTEIN, TOTAL (test code = 222) 6.7 G/DL ALBUMIN (test code = 2200) 4.5 G/DL CALC GLOBULIN (test code = 2240) 2.2 G/DL CALC A/G RATIO (test code = 2234) 2.0 RATIO BILIRUBIN, TOTAL (test code = 2206) <0.2 MG/DL ALKALINE PHOSPHATASE (test code = 2203) 144 U/L AST (test code = 8) 16 U/L ALT (test code = 2219) 16 U/L Robert CaliVITAMIN B 12 AND FOLIC [id number] 00:00:00* Test Item Value Reference Range Interpretation Comme [facility] VITAMIN B-12 (test code = 2840) 380 PG/ML FOLIC ACID (test code = 2695) 7.0 UG/L Robert CaliPROTEIN ELECTROPHORESIS, [id number] 00:00:00* Test Item Value Reference Range Interpretation Comme [facility] ALBUMIN (test code = 2554) 4.2 G/DL [...] code = 2568) (NOTE) Robert CaliCBC W/AUTO [id number] 00:00:00* Test Item Value Reference Range Interpretation [...] ABS NUCLEATED RBCS (test cod e = 02211) 0.00 K/UL Robert CaliCOMPREHENSIVE METABOLIC [id number] 00:00:00* Test Item Value Reference Range Interpretation Comme nts GLUCOSE (test code = 2217) 95 MG/DL BUN (test code = 2208) 13 MG/DL CREATININE (test code = 2214) 0.65 MG/DL eGFR (2020 CKD-EPI) (test code = 66382) 110 ML/MIN/1.73 CALC BUN/CREAT (test code = [...] = 2219) 16 U/L Robert Ambrose AustinHAPTOGLOBIN, [id number] 13:13:35* Test Item Value Reference Range Interpretation Comme [facility] HAPTOGLOBIN, QUANT (test cod e = 39061) 227 MG/DL 32-197 H [id number] 05:29:31* Test Item Value Reference Range Interpretation Comme nts TRANSFERRIN (test code = 4936) 380 MG/DL 200-360 H [id number] 05:29:31* Test Item Value Reference Range Interpretation Comme nts LDH (test code = 2224) 186 U/L 135-214 [id number] 04:14:38* Test Item Value Reference Range Interpretation Comme [facility] FERRITIN (test code = 2075) 6 NG/ML 13-200 L VITAMIN D, 25 [id number] 04:14:10* Test Item Value Reference Range Interpretation [...] IRON BINDING CAPACITY AND IRON AND % [id number] 04:13:51* Test Item Value Reference Range Interpretation Comme nts IRON, SERUM (test code = 2221) 25 UG/DL 37-145 L UNSATURATED IBC (test code = ) 425 UG/DL 112-347 H CALC TOTAL IBC (test code = 2076) 450 UG/DL 250-450 CALC % IRON SAT (test code = 2078) 6 % 20-50 L URIC [id number] 04:13:51* Test Item Value Reference Range Interpretation Comme nts URIC ACID (test code = 2232) 5.8 MG/DL 2.7-6.1 UNLESS OTHERWISE INDICATED, ALL TESTING PERFORMED AT [facility] [address] [place] [address] STAFF PHARMACIST HOSPITAL: CHARLA HERNANDEZ M.D. CLIA NUMBER [id number] [facility] [place]. [id number] LIPID [id number] 04:13:51* Test Item Value Reference Range Interpretation Comme nts CHOLESTEROL (test code = 2209) 212 MG/DL <200 H TRIGLYCERIDES (test code = 2231) 116 MG/DL <150 HDL CHOLESTEROL (test code = 2219) 53 MG/DL >39 CALC LDL CHOL (test code = 2236) 137 MG/DL <100 H NOTE: CALCULATED LDL IS BASED ON DOMINIQUE-PEREZ METHOD WHICHINCLUDES ADJUSTABLE TRIGLYCERIDE:VLDL CHOLESTEROL RATIO.THIS FACTOR VARIES BY MEASURED TRIGLYCERIDE AND NON-HDLCHOLESTEROL CONCENTRATIONS WITH INCREASED CALCULATED LDL SEENIN HIGHER TRIGLYCERIDE OR LOWER NON-HDL SPECIMENS. FOR MOREINFORMATION, SEE CLIENT ANNOUNCEMENT AT [email or web address] RISK RATIO LDL/HDL (test code = 2237) 2.58 RATIO <3.22 COMPREHENSIVE METABOLIC [id number] 04:13:51* Test Item Value Reference Range Interpretation Comme nts GLUCOSE (test code = 2216) 97 MG/DL 70-99 BUN (test code = 2207) 9 MG/DL 6-20 CREATININE (test code = 2213) 0.86 MG/DL 0.60-1.30 eGFR (2020 CKD-EPI) (test co de = 45214) 84 ML/MIN/1.73 >60 CALC BUN/CREAT (test code = 2234) 10 RATIO 6-28 SODIUM (test code = 2230) 140 MEQ/L 133-146 POTASSIUM (test code = 8) 4.4 MEQ/L 3.5-5.4 CHLORIDE (test code = 5) 104 MEQ/L 95-107 CARBON DIOXIDE (test code [...] 17 U/L 9-40 ALT (test code = 2218) 22 U/L 5-40 HEMOGLOBIN [id number] 03:10:06* Test Item Value Reference Range Interpretation Comme nts HEMOGLOBIN A1c (test code = 26697) 5.6 % 4.2-5.6 CBC W/AUTO DIFF RFLX SMEAR [id number] 02:37:07* Test Item Value Reference Range Interpretation [...] MANUAL DIFFERENTIAL WILL BE PERFORMED IF INDICATED.SEE [email or web address] CONTACT YOUR LOCAL [facility] CUSTOMER SERVICEDEPARTMENT FOR FURTHER INFORMATION. LYMPHOCYTES (test [...] 0.00-0.10 ABS NUCLEATED RBCS (test code = 24756) 0.00 K/UL 0.00-0.11 RETICULOCYTE WITH [id number] 02:37:07* Test Item Value Reference Range Interpretation Comme nts RETICULOCYTE COUNT (test cod e = 1018) 2.55 % 0.80-2.40 H ABSOLUTE RETICULOCYTE (test code = 23934) 115.0 K/UL 32.0-105.0 H HEMOGLOBIN [id number] 00:00:00* Test Item Value Reference Range Interpretation Comme nts HEMOGLOBIN A1c (test code = 74588) 5.6 % Robert F AustinLIPID [id number] 00:00:00* Test Item Value Reference Range Interpretation Comme nts CHOLESTEROL (test code = 2210) 212 MG/DL TRIGLYCERIDES (test code = 2232) 116 MG/DL HDL CHOLESTEROL (test code = 2220) 53 MG/DL CALC LDL CHOL (test code = 2237) 137 MG/DL RISK RATIO LDL/HDL (test cod e = 2238) 2.58 RATIO Robert CaliCOMPREHENSIVE METABOLIC [id number] 00:00:00* Test Item Value Reference Range Interpretation Comme nts GLUCOSE (test code = 2217) 97 MG/DL BUN (test code = 2208) 9 MG/DL CREATININE (test code = 2214) 0.86 MG/DL eGFR (2020 CKD-EPI) (test co de = 72893) 84 ML/MIN/1.73 CALC BUN/CREAT (test code = [...] 2219) 22 U/L Robert CaliVITAMIN D, 25 [id number] 00:00:00* Test Item Value Reference Range Interpretation Comme [facility] VITAMIN D, 25 OH (test code = 4958) 18 NG/ML [facility]FF RFLX SMEAR [id number] 00:00:00* Test Item Value Reference Range Interpretation [...] ABS NUCLEATED RBCS (test cod e = 55918) 0.00 K/UL Robert CaliRETICULOCYTE WITH [id number] 00:00:00* Test Item Value Reference Range Interpretation Comme nts RETICULOCYTE COUNT (test cod e = 1018) 2.55 % ABSOLUTE RETICULOCYTE (test code = 59981) 115.0 K/UL Robert CaliHAPTOGLOBIN, [id number] 00:00:00* Test Item Value Reference Range Interpretation Comme nts HAPTOGLOBIN, QUANT (test cod e = 78655) 227 MG/DL Robert [id number] 00:00:00* Test Item Value Reference Range Interpretation Comme nts LDH (test code = 4) 186 U/L Robert CaliIRON BINDING CAPACITY AND IRON AND % [id number] 00:00:00* Test Item Value Reference Range Interpretation Comme nts IRON, SERUM (test code = 2221) 25 UG/DL UNSATURATED IBC (test code = ) 425 UG/DL CALC TOTAL IBC (test code = 2076) 450 UG/DL CALC % IRON SAT (test code = 2078) 6 % Robetr [id number] 00:00:00* Test Item Value Reference Range Interpretation Comme nts FERRITIN (test code = 2074) 6 NG/ML Robert [id number] 00:00:00* Test Item Value Reference Range Interpretation Comme nts TRANSFERRIN (test code = 4936) 380 MG/DL Robert CaliURIC [id number] 00:00:00* Test Item Value Reference Range Interpretation Comme nts URIC ACID (test code = 2233) 5.8 MG/DL Robert CaliHEMOGLOBIN [id number] 00:00:00* Test Item Value Reference Range Interpretation Comme ev[facility] HEMOGLOBIN A1c (test code = 58723) 5.6 % Robert CaliLIPID [id number] 00:00:00* Test Item Value Reference Range Interpretation Comme nts CHOLESTEROL (test code = 2210) 212 MG/DL TRIGLYCERIDES (test code = 2232) 116 MG/DL HDL CHOLESTEROL (test code = 2220) 53 MG/DL CALC LDL CHOL (test code = 2237) 137 MG/DL RISK RATIO LDL/HDL (test cod e = 2238) 2.58 RATIO Robert CaliCOMPREHENSIVE METABOLIC [id number] 00:00:00* Test Item Value Reference Range Interpretation Comme nts GLUCOSE (test code = 2217) 97 MG/DL BUN (test code = 2208) 9 MG/DL CREATININE (test code = 2214) 0.86 MG/DL eGFR (2020 CKD-EPI) (test co de = 25759) 84 ML/MIN/1.73 CALC BUN/CREAT (test code = [...] 2219) 22 U/L Robert CaliVITAMIN D, 25 [id number] 00:00:00* Test Item Value Reference Range Interpretation Comme nts VITAMIN D, 25 OH (test code = 4958) 18 NG/ML Robert CaliCBC W/AUTO DIFF RFLX SMEAR [id number] 00:00:00* Test Item Value Reference Range Interpretation [...] ABS NUCLEATED RBCS (test cod e = 91601) 0.00 K/UL Robert CaliRETICULOCYTE WITH [id number] 00:00:00* Test Item Value Reference Range Interpretation Comme nts RETICULOCYTE COUNT (test cod e = 1018) 2.55 % ABSOLUTE RETICULOCYTE (test code = 76526) 115.0 K/UL Robert CaliHAPTOGLOBIN, [id number] 00:00:00* Test Item Value Reference Range Interpretation Comme [facility] HAPTOGLOBIN, QUANT (test cod e = 20271) 227 MG/DL Robert [id number] 00:00:00* Test Item Value Reference Range Interpretation Comme nts LDH (test code = 2224) 186 U/L Robert CaliIRON BINDING CAPACITY AND IRON AND % [id number] 00:00:00* Test Item Value Reference Range Interpretation Comme nts IRON, SERUM (test code = 222) 25 UG/DL UNSATURATED IBC (test code = 98657) 425 UG/DL CALC TOTAL IBC (test code = 7) 450 UG/DL CALC % IRON SAT (test code = 2078) 6 % Robert [id number] 00:00:00* Test Item Value Reference Range Interpretation Comme nts FERRITIN (test code = 2075) 6 NG/ML Robert [id number] 00:00:00* Test Item Value Reference Range Interpretation Comme nts TRANSFERRIN (test code = 4936) 380 MG/DL Robert CaliURIC [id number] 00:00:00* Test Item Value Reference Range Interpretation Comme nts URIC ACID (test code = 2233) 5.8 MG/DL Robert CaliHEMOGLOBIN [id number] 00:00:00* Test Item Value Reference Range Interpretation Comme [facility] HEMOGLOBIN A1c (test code = 80362) 5.6 % Robert CaliLIPID [id number] 00:00:00* Test Item Value Reference Range Interpretation Comme nts CHOLESTEROL (test code = 2210) 212 MG/DL TRIGLYCERIDES (test code = 2232) 116 MG/DL HDL CHOLESTEROL (test code = 2220) 53 MG/DL CALC LDL CHOL (test code = 2237) 137 MG/DL RISK RATIO LDL/HDL (test cod e = 2238) 2.58 RATIO Robert CaliCOMPREHENSIVE METABOLIC [id number] 00:00:00* Test Item Value Reference Range Interpretation Comme nts GLUCOSE (test code = 2217) 97 MG/DL BUN (test code = 2208) 9 MG/DL CREATININE (test code = 2214) 0.86 MG/DL eGFR (2020 CKD-EPI) (test co de = 51544) 84 ML/MIN/1.73 CALC BUN/CREAT (test code = [...] MG/DL ALKALINE PHOSPHATASE (test code = 220) 149 U/L AST (test code = 2218) 17 U/L ALT (test code = 2219) 22 U/L Robert Arnol VirajVITAMIN D, 25 [id number] 00:00:00* Test Item Value Reference Range Interpretation Comme [facility] VITAMIN D, 25 OH (test code = 4958) 18 NG/ML [facility]/AUTO DIFF RFLX SMEAR [id number] 00:00:00* Test Item Value Reference Range Interpretation [...] ABS NUCLEATED RBCS (test cod e = 26458) 0.00 K/UL Robert CaliRETICULOCYTE WITH [id number] 00:00:00* Test Item Value Reference Range Interpretation Comme nts RETICULOCYTE COUNT (test cod e = 1018) 2.55 % ABSOLUTE RETICULOCYTE (test code = 54000) 115.0 K/UL Robert CaliHAPTOGLOBIN, [id number] 00:00:00* Test Item Value Reference Range Interpretation Comme nts HAPTOGLOBIN, QUANT (test cod e = 68009) 227 MG/DL Robert [id number] 00:00:00* Test Item Value Reference Range Interpretation Comme nts LDH (test code = 2224) 186 U/L Robert CaliIRON BINDING CAPACITY AND IRON AND % [id number] 00:00:00* Test Item Value Reference Range Interpretation Comme nts IRON, SERUM (test code = 2222) 25 UG/DL UNSATURATED IBC (test code = 43445) 425 UG/DL CALC TOTAL IBC (test code = 2077) 450 UG/DL CALC % IRON SAT (test code = 2079) 6 % Robert [id number] 00:00:00* Test Item Value Reference Range Interpretation Comme nts FERRITIN (test code = 2075) 6 NG/ML Robert [id number] 00:00:00* Test Item Value Reference Range Interpretation Comme nts TRANSFERRIN (test code = 4936) 380 MG/DL Robert Ambrose AustinURIC [id number] 00:00:00* Test Item Value Reference Range Interpretation Comme nts URIC ACID (test code = 2233) 5.8 MG/DL Robert Ambrose AustinHEMOGLOBIN [id number] 00:00:00* Test Item Value Reference Range Interpretation Comme nts HEMOGLOBIN A1c (test code = 09990) 5.6 % Robert CaliLIPID [id number] 00:00:00* Test Item Value Reference Range Interpretation Comme nts CHOLESTEROL (test code = 2210) 212 MG/DL TRIGLYCERIDES (test code = 2232) 116 MG/DL HDL CHOLESTEROL (test code = 2220) 53 MG/DL CALC LDL CHOL (test code = 2237) 137 MG/DL RISK RATIO LDL/HDL (test cod e = 2238) 2.58 RATIO Robert CaliCOMPREHENSIVE METABOLIC [id number] 00:00:00* Test Item Value Reference Range Interpretation Comme nts GLUCOSE (test code = 2217) 97 MG/DL BUN (test code = 2208) 9 MG/DL CREATININE (test code = 2214) 0.86 MG/DL eGFR (2020 CKD-EPI) (test co de = 81423) 84 ML/MIN/1.73 CALC BUN/CREAT (test code = [...] 2219) 22 U/L Robert CaliVITAMIN D, 25 [id number] 00:00:00* Test Item Value Reference Range Interpretation Comme nts VITAMIN D, 25 OH (test code = 4958) 18 NG/ML Robert CaliCBC W/AUTO DIFF RFLX SMEAR [id number] 00:00:00* Test Item Value Reference Range Interpretation [...] ABS NUCLEATED RBCS (test cod e = 39561) 0.00 K/UL Robert Ambrose VirajRETICULOCYTE WITH [id number] 00:00:00* Test Item Value Reference Range Interpretation Comme nts RETICULOCYTE COUNT (test cod e = 1018) 2.55 % ABSOLUTE RETICULOCYTE (test code = 88473) 115.0 K/UL Robert Ambrose VirajHAPTOGLOBIN, [id number] 00:00:00* Test Item Value Reference Range Interpretation Comme nts HAPTOGLOBIN, QUANT (test cod e = 15693) 227 MG/DL Robert Ambrose [id number] 00:00:00* Test Item Value Reference Range Interpretation Comme nts LDH (test code = 4) 186 U/L Robert Ambrose VirajIRON BINDING CAPACITY AND IRON AND % [id number] 00:00:00* Test Item Value Reference Range Interpretation Comme nts IRON, SERUM (test code = 2222) 25 UG/DL UNSATURATED IBC (test code = 37910) 425 UG/DL CALC TOTAL IBC (test code = 2077) 450 UG/DL CALC % IRON SAT (test code = 2079) 6 % Robert [id number] 00:00:00* Test Item Value Reference Range Interpretation Greyson altamirano FERRITIN (test code = 2075) 6 NG/ML Robert [id number] 00:00:00* Test Item Value Reference Range Interpretation Greyson altamirano TRANSFERRIN (test code = 4936) 380 MG/DL Robert CaliURIC [id number] 00:00:00* Test Item Value Reference Range Interpretation Commyvonne altamirano URIC ACID (test code = 2233) 5.8 MG/DL Robert Ambrose AustinCT ACUTE STROKE ANGIOGRAM [id number] 13:46:46CT STROKE ANGIOGRAM HEAD, CT STROKE ANGIOGRAM [...] caliber. The superior cerebellar arteriesare patent. The MAINTENANCE TEAM MEMBER are patent bilaterally. No sizable posteriorcommunicating arteries are seen. The petrous, cavernous and supraclinoid internal carotid segmentsarewidely patent. The GIBSON and MCA are patent bilaterally. An anteriorcommunicating artery is seen. The dural venous sinuses are opacified and unremarkable.[facility] [id number] 13:46:46CT STROKE ANGIOGRAM HEAD, CT STROKE ANGIOGRAM [...] caliber. The superior cerebellar arteriesare patent. The MAINTENANCE TEAM MEMBER are patent bilaterally. No sizable posteriorcommunicating arteries are seen. The petrous, cavernous and supraclinoid internal carotid segmentsarewidely patent. The GIBSON and MCA are patent bilaterally. An anteriorcommunicating artery is seen. The dural venous sinuses are opacified and unremarkable.[facility] [id number] 13:46:46CT STROKE ANGIOGRAM HEAD, CT STROKE ANGIOGRAM [...] caliber. The superior cerebellar arteriesare patent. The MAINTENANCE TEAM MEMBER are patent bilaterally. No sizable posteriorcommunicating arteries are seen. The petrous, cavernous and supraclinoid internal carotid segmentsarewidely patent. The GIBSON and MCA are patent bilaterally. An anteriorcommunicating artery is seen. The dural venous sinuses are opacified and unremarkable.[facility]KE [facility] [id number] 13:46:46CT STROKE ANGIOGRAM HEAD, CT STROKE ANGIOGRAM [...] caliber. The superior cerebellar arteriesare patent. The MAINTENANCE TEAM MEMBER are patent bilaterally. No sizable posteriorcommunicating arteries are seen. The petrous, cavernous and supraclinoid internal carotid segmentsarewidely patent. The GIBSON and MCA are patent bilaterally. An anteriorcommunicating artery is seen. The dural venous sinuses are opacified and unremarkable.[facility] ACUTE STROKE HEAD WO [id number] 13:44:48EXAM: CT STROKE HEAD WO CONTRAST HISTORY: [...] clear. Thecalvarium and central skull base are unremarkable.[facility] ACUTE STROKE HEAD WO [id number] 13:44:48EXAM: CT STROKE HEAD WO CONTRAST HISTORY: [...] clear. Thecalvarium and central skull base are unremarkable.[address]04-26 04:29:26* Test Item Value Reference Range Interpretation Comme nts [place] (test code = 9111927450) 0.6 mmol/L 0.6-1.2 ZAINAB (test code = ZAINAB) Toxic Range: ? Greater than 1.2 mmol/L Lab Interpretation (test code = 75958-3) Normal [address]04-26 04:29:26* Test Item Value Reference Range Interpretation Comme nts [place] (test code = 3747578501) 0.6 mmol/L 0.6-1.2 ZAINAB (test code = ZAINAB) Toxic Range: ? Greater than 1.2 mmol/L Lab Interpretation (test code = 56624-2) Normal [address]04-26 04:29:26* Test Item Value Reference Range Interpretation Comme nts [place] (test code = 8751471608) 0.6 mmol/L 0.6-1.2 ZAINAB (test code = ZAINAB) Toxic Range: ? Greater than 1.2 mmol/L Lab Interpretation (test code = 18584-7) Normal [address]04-26 04:29:26* Test Item Value Reference Range Interpretation Comme nts [place] (test code = 4763774425) 0.6 mmol/L 0.6-1.2 ZAINAB (test code = ZAINAB) Toxic Range: ? Greater than 1.2 mmol/L Lab Interpretation (test code = 72928-3) Normal [address]04-26 04:29:26* Test Item Value Reference Range Interpretation Comme nts [place] (test code = 8964178150) 0.6 mmol/L 0.6-1.2 ZAINAB (test code = ZAINAB) Toxic Range: ? Greater than 1.2 mmol/L Lab Interpretation (test code = 22546-8) Normal [address]04-26 04:29:26* Test Item Value Reference Range Interpretation Comme nts [place] (test code = 8909476569) 0.6 mmol/L 0.6-1.2 ZAINAB (test code = ZAINAB) Toxic Range: ? Greater than 1.2 mmol/L Lab Interpretation (test code = 44311-1) Normal [facility]2024-04-26 04:29:26* Test Item Value Reference Range Interpretation Comme nts [place] (test code = 7521416398) 0.6 mmol/L 0.6-1.2 ZAINAB (test code = ZAINAB) Toxic Range: ? Greater than 1.2 mmol/L Lab Interpretation (test code = 74301-6) Normal [facility]2024-04-26 04:29:26* Test Item Value Reference Range Interpretation Comme nts [place] (test code = 1264260086) 0.6 mmol/L 0.6-1.2 ZAINAB (test code = ZAINAB) Toxic Range: ? Greater than 1.2 mmol/L Lab Interpretation (test code = 14507-7) Normal [facility]2024-04-26 04:29:26* Test Item Value Reference Range Interpretation Comme nts [place] (test code = 9576043431) 0.6 mmol/L 0.6-1.2 ZAINAB (test code = ZAINAB) Toxic Range: ? Greater than 1.2 mmol/L Lab Interpretation (test code = 42329-4) Normal [facility]2024-04-26 03:33:22 ALCOHOL<10mg/dL06/07/2023 10:33 PM CDTUTMB LABORATORY SERVICESToxic Greater than or equal to 80 mg/dL. NOTE: Whole blood values are approximately 10% to 15% lower than serum and plasma.[facility]2024-04-26 03:33:22ALCOHOL<10mg/dL06/07/2023 10:33 PM CDTUTMB LABORATORY SERVICESToxic Greater than or equal to 80 mg/dL. NOTE: Whole blood values are approximately 10% to 15% lower than serum and plasma.[facility] 2023-06-08 03:33:22ALCOHOL<10mg/dL06/07/2023 10:33 PM CDTUTMB LABORATORY SERVICESToxic Greater than or equal to 80 mg/dL. NOTE: Whole blood values are approximately 10% to 15% lower than serum and plasma.[facility]2024-04-26 03:33:22ALCOHOL<10mg/dL06/07/2023 10:33 PM CDTUTMB LABORATORY SERVICESToxic Greater than or equal to 80 mg/dL. NOTE: Whole blood values are approximately 10% to 15% lower than serum and plasma.[facility]2024-04-26 03:33:22ALCOHOL<10mg/dL06/07/2023 10:33 PM CDTUTMB LABORATORY SERVICESToxic Greater than or equal to 80 mg/dL. NOTE: Whole blood values are approximately 10% to 15% lower than serum and plasma.[facility]2024-04-26 03:33:22ALCOHOL<10mg/dL06/07/2023 10:33 PM CDTUTMB LABORATORY SERVICESToxic Greater than or equal to 80 mg/dL. NOTE: Whole blood values are approximately 10% to 15% lower than serum and plasma. [facility]2024-04-26 03:33:22 ALCOHOL<10mg/dL06/07/2023 10:33 PM CDTUTMB LABORATORY SERVICESToxic Greater than or equal to 80 mg/dL. NOTE: Whole blood values are approximately 10% to 15% lower than serum and plasma.[facility]2024-04-26 03:33:22ALCOHOL<10mg/dL06/07/2023 10:33 PM CDTUTMB LABORATORY SERVICESToxic Greater than or equal to 80 mg/dL. NOTE: Whole blood values are approximately 10% to 15% lower than serum and plasma.[facility] 2023-06-08 03:33:22ALCOHOL<10mg/dL06/07/2023 10:33 PM CDTUTMB LABORATORY SERVICESToxic Greater than or equal to 80 mg/dL. NOTE: Whole blood values are approximately 10% to 15% lower than serum and plasma.[facility] [id number] 03:15:34* Test Item Value Reference Range Interpretation Comme nts TROPONIN I (test code = 9877891558) 0.003 ng/mL <=0.034 ZAINAB (test code = [...] of biotin. Lab Interpretation (test code = 25852-3) Normal [facility] I - Code Mbtvil0104-90-41 03:15:34* Test Item Value Reference Range Interpretation Comme nts TROPONIN I (test code = 3561084233) 0.003 ng/mL <=0.034 ZAINAB (test code = [...] of biotin. Lab Interpretation (test code = 71698-6) Normal [facility] I - Code [id number] 03:15:34* Test Item Value Reference Range Interpretation Comme nts TROPONIN I (test code = 0197801218) 0.003 ng/mL <=0.034 ZAINAB (test code = [...] of biotin. Lab Interpretation (test code = 64440-4) Normal [facility] I - Code Skjkuo8702-34-84 03:15:34* Test Item Value Reference Range Interpretation Comme nts TROPONIN I (test code = 5615472985) 0.003 ng/mL <=0.034 ZAINAB (test code = [...] of biotin. Lab Interpretation (test code = 46115-7) Normal [facility] I - Code [id number] 03:15:34* Test Item Value Reference Range Interpretation Comme nts TROPONIN I (test code = 2960421881) 0.003 ng/mL <=0.034 ZAINAB (test code = [...] of biotin. Lab Interpretation (test code = 73374-9) Normal [facility] I - Code [id number] 03:15:34* Test Item Value Reference Range Interpretation Comme nts TROPONIN I (test code = 0252784170) 0.003 ng/mL <=0.034 ZAINAB (test code = [...] of biotin. Lab Interpretation (test code = 36337-6) Normal [facility] I - Code [id number] 03:15:34* Test Item Value Reference Range Interpretation Comme nts TROPONIN I (test code = 0987040947) 0.003 ng/mL <=0.034 ZAINAB (test code = [...] of biotin. Lab Interpretation (test code = 60546-3) Normal [facility] I - Code [id number] 03:15:34* Test Item Value Reference Range Interpretation Comme nts TROPONIN I (test code = 4797769328) 0.003 ng/mL <=0.034 ZAINAB (test code = [...] of biotin. Lab Interpretation (test code = 34382-5) [facility] [id number] 03:15:34* Test Item Value Reference Range Interpretation Comme nts TROPONIN I (test code = 4012383057) 0.003 ng/mL <=0.034 ZAINAB (test code = [...] of biotin. Lab Interpretation (test code = 42321-1) [facility] (NA, K, CL, CO2, Glucose, BUN, Creatinine, CA) - Code [id number] 03:03:47* Test Item Value Reference Range Interpretation Comme nts NA (test code = 4752826349) 135 mmol/L 135-145 K (test code = 6351906592) 4.3 mmol/L 3.5-5.0 CL (test code = 0902225992) 103 mmol/L 98-108 CO2 TOTAL (test code = 1524440464) 28 mmol/L 23-31 AGAP (test code = 2166551431) 4 2-16 BUN (test code = 8619105239) 11 mg/dL 7-23 GLUCOSE (test code = 6063345192) 120 mg/dL 70-110 H CREATININE (test code = 2160-0) 0.71 mg/dL 0.50-1.04 CALCIUM (test code = 7550171092) 9.3 mg/dL 8.6-10.6 eGFR (test code = 78184-7) 107.0 mL/min/1.73m2 CKD-EPI eGFR (2020). Assuming creatinine has been stable day-to-day for at least three months, the eGFR indicates Category G1 (>= 90 mL/min/1.73 m2) Lab Interpretation (test code = 98673-8) Abnormal [facility] Metabolic Panel (NA, K, CL, CO2, Glucose, BUN, Creatinine, CA) - Code Ndsqcw1649-24-78 03:03:47* Test Item Value Reference Range Interpretation Comme nts NA (test code = 8190999746) 135 mmol/L 135-145 K (test code = 4289128603) 4.3 mmol/L 3.5-5.0 CL (test code = 1004163517) 103 mmol/L 98-108 CO2 TOTAL (test code = 5923023723) 28 mmol/L 23-31 AGAP (test code = 0428544706) 4 2-16 BUN (test code = 9490063818) 11 mg/dL 7-23 GLUCOSE (test code = 7973126172) 120 mg/dL 70-110 H CREATININE (test code = 2160-0) 0.71 mg/dL 0.50-1.04 CALCIUM (test code = 5884923722) 9.3 mg/dL 8.6-10.6 eGFR (test code = 13312-2) 107.0 mL/min/1.73m2 CKD-EPI eGFR (2020). Assuming creatinine has been stable day-to-day for at least three months, the eGFR indicates Category G1 (>= 90 mL/min/1.73 m2) Lab Interpretation (test code = 31503-9) Abnormal [facility] Metabolic Panel (NA, K, CL, CO2, Glucose, BUN, Creatinine, CA) - Code [id number] 03:03:47* Test Item Value Reference Range Interpretation Comme nts NA (test code = 1060917154) 135 mmol/L 135-145 K (test code = 7762314293) 4.3 mmol/L 3.5-5.0 CL (test code = 4179904823) 103 mmol/L 98-108 CO2 TOTAL (test code = 4202929859) 28 mmol/L 23-31 AGAP (test code = 2528226863) 4 2-16 BUN (test code = 5310888022) 11 mg/dL 7-23 GLUCOSE (test code = 9164209990) 120 mg/dL 70-110 H CREATININE (test code = 2160-0) 0.71 mg/dL 0.50-1.04 CALCIUM (test code = 3957784400) 9.3 mg/dL 8.6-10.6 eGFR (test code = 13256-3) 107.0 mL/min/1.73m2 CKD-EPI eGFR (2020). Assuming creatinine has been stable day-to-day for at least three months, the eGFR indicates Category G1 (>= 90 mL/min/1.73 m2) Lab Interpretation (test code = 25465-9) Abnormal [facility] Metabolic Panel (NA, K, CL, CO2, Glucose, BUN, Creatinine, CA) - Code Zcimyu9322-90-28 03:03:47* Test Item Value Reference Range Interpretation Comme nts NA (test code = 0013368120) 135 mmol/L 135-145 K (test code = 3803023820) 4.3 mmol/L 3.5-5.0 CL (test code = 0618562143) 103 mmol/L 98-108 CO2 TOTAL (test code = 9253162723) 28 mmol/L 23-31 AGAP (test code = 6619093854) 4 2-16 BUN (test code = 0616657554) 11 mg/dL 7-23 GLUCOSE (test code = 5557295509) 120 mg/dL 70-110 H CREATININE (test code = 2160-0) 0.71 mg/dL 0.50-1.04 CALCIUM (test code = 1749757338) 9.3 mg/dL 8.6-10.6 eGFR (test code = 94099-4) 107.0 mL/min/1.73m2 CKD-EPI eGFR (2020). Assuming creatinine has been stable day-to-day for at least three months, the eGFR indicates Category G1 (>= 90 mL/min/1.73 m2) Lab Interpretation (test code = 78895-2) Abnormal [facility] Metabolic Panel (NA, K, CL, CO2, Glucose, BUN, Creatinine, CA) - Code [id number] 03:03:47* Test Item Value Reference Range Interpretation Comme nts NA (test code = 7088478062) 135 mmol/L 135-145 K (test code = 6442540801) 4.3 mmol/L 3.5-5.0 CL (test code = 5306685119) 103 mmol/L 98-108 CO2 TOTAL (test code = 1448634302) 28 mmol/L 23-31 AGAP (test code = 6385677745) 4 2-16 BUN (test code = 1335744970) 11 mg/dL 7-23 GLUCOSE (test code = 1816066029) 120 mg/dL 70-110 H CREATININE (test code = 2160-0) 0.71 mg/dL 0.50-1.04 CALCIUM (test code = 0204736253) 9.3 mg/dL 8.6-10.6 eGFR (test code = 27626-0) 107.0 mL/min/1.73m2 CKD-EPI eGFR (2020). Assuming creatinine has been stable day-to-day for at least three months, the eGFR indicates Category G1 (>= 90 mL/min/1.73 m2) Lab Interpretation (test code = 80804-1) Abnormal [facility] Metabolic Panel (NA, K, CL, CO2, Glucose, BUN, Creatinine, CA) - Code [id number] 03:03:47* Test Item Value Reference Range Interpretation Comme nts NA (test code = 6078723637) 135 mmol/L 135-145 K (test code = 1099982451) 4.3 mmol/L 3.5-5.0 CL (test code = 9823214819) 103 mmol/L 98-108 CO2 TOTAL (test code = 8914118178) 28 mmol/L 23-31 AGAP (test code = 0409076717) 4 2-16 BUN (test code = 2956721581) 11 mg/dL 7-23 GLUCOSE (test code = 9146250418) 120 mg/dL 70-110 H CREATININE (test code = 2160-0) 0.71 mg/dL 0.50-1.04 CALCIUM (test code = 8735697314) 9.3 mg/dL 8.6-10.6 eGFR (test code = 97051-6) 107.0 mL/min/1.73m2 CKD-EPI eGFR (2020). Assuming creatinine has been stable day-to-day for at least three months, the eGFR indicates Category G1 (>= 90 mL/min/1.73 m2) Lab Interpretation (test code = 72282-9) Abnormal [facility] Metabolic Panel (NA, K, CL, CO2, Glucose, BUN, Creatinine, CA) - Code Hnoctz4175-26-20 03:03:47* Test Item Value Reference Range Interpretation Comme nts NA (test code = 5468044345) 135 mmol/L 135-145 K (test code = 8407695880) 4.3 mmol/L 3.5-5.0 CL (test code = 0898903114) 103 mmol/L 98-108 CO2 TOTAL (test code = 6666901699) 28 mmol/L 23-31 AGAP (test code = 6759428047) 4 2-16 BUN (test code = 5318359598) 11 mg/dL 7-23 GLUCOSE (test code = 7048045024) 120 mg/dL 70-110 H CREATININE (test code = 2160-0) 0.71 mg/dL 0.50-1.04 CALCIUM (test code = 8368717723) 9.3 mg/dL 8.6-10.6 eGFR (test code = 39849-9) 107.0 mL/min/1.73m2 CKD-EPI eGFR (2020). Assuming creatinine has been stable day-to-day for at least three months, the eGFR indicates Category G1 (>= 90 mL/min/1.73 m2) Lab Interpretation (test code = 71676-3) Abnormal [facility] Metabolic Panel (NA, K, CL, CO2, Glucose, BUN, Creatinine, CA) - Code [id number] 03:03:47* Test Item Value Reference Range Interpretation Comme nts NA (test code = 7571031686) 135 mmol/L 135-145 K (test code = 2740966083) 4.3 mmol/L 3.5-5.0 CL (test code = 9351647361) 103 mmol/L 98-108 CO2 TOTAL (test code = 3899903986) 28 mmol/L 23-31 AGAP (test code = 9625875320) 4 2-16 BUN (test code = 9592388606) 11 mg/dL 7-23 GLUCOSE (test code = 2484897151) 120 mg/dL 70-110 H CREATININE (test code = 2160-0) 0.71 mg/dL 0.50-1.04 CALCIUM (test code = 5203452199) 9.3 mg/dL 8.6-10.6 eGFR (test code = 42785-0) 107.0 mL/min/1.73m2 CKD-EPI eGFR (2020). Assuming creatinine has been stable day-to-day for at least three months, the eGFR indicates Category G1 (>= 90 mL/min/1.73 m2) Lab Interpretation (test code = 33097-4) [facility] (NA, K, CL, CO2, Glucose, BUN, Creatinine, CA) - Code Folkya3730-08-34 03:03:47* Test Item Value Reference Range Interpretation Comme nts NA (test code = 1443984865) 135 mmol/L 135-145 K (test code = 5388941571) 4.3 mmol/L 3.5-5.0 CL (test code = 6725131703) 103 mmol/L 98-108 CO2 TOTAL (test code = 3403798963) 28 mmol/L 23-31 AGAP (test code = 9345329040) 4 2-16 BUN (test code = 3304701875) 11 mg/dL 7-23 GLUCOSE (test code = 9872585714) 120 mg/dL 70-110 H CREATININE (test code = 2160-0) 0.71 mg/dL 0.50-1.04 CALCIUM (test code = 7918576421) 9.3 mg/dL 8.6-10.6 eGFR (test code = 79607-4) 107.0 mL/min/1.73m2 CKD-EPI eGFR (2020). Assuming creatinine has been stable day-to-day for at least three months, the eGFR indicates Category G1 (>= 90 mL/min/1.73 m2) Lab Interpretation (test code = 04173-0) [facility] - Code Pajmlq7451-97-73 03:00:48* Test Item Value Reference Range Interpretation Comme nts PROTIME PATIENT (test code = 5964-2) 10.4 10.1-12.6 INR (test code = 6301-6) 0.9 Normal INR <1.1; Warfarin Therapeutic range 2.0 to 3.0 or 2.5 to 3.5, depending upon the indications. Lab Interpretation (test code = 76701-8) [facility] Hjrgij5060-34-05 03:00:48* Test Item Value Reference Range Interpretation Comme nts PROTIME PATIENT (test code = 5964-2) 10.4 10.1-12.6 INR (test code = 6301-6) 0.9 Normal INR <1.1; Warfarin Therapeutic range 2.0 to 3.0 or 2.5 to 3.5, depending upon the indications. Lab Interpretation (test code = 10726-7) [facility] - Code Nqmwuq6141-71-81 03:00:48* Test Item Value Reference Range Interpretation Comme nts PROTIME PATIENT (test code = 5964-2) 10.4 10.1-12.6 INR (test code = 6301-6) 0.9 Normal INR <1.1; Warfarin Therapeutic range 2.0 to 3.0 or 2.5 to 3.5, depending upon the indications. Lab Interpretation (test code = 99517-6) [facility] - Code Zzshau9573-96-26 03:00:48* Test Item Value Reference Range Interpretation Comme nts PROTIME PATIENT (test code = 5964-2) 10.4 10.1-12.6 INR (test code = 6301-6) 0.9 Normal INR <1.1; Warfarin Therapeutic range 2.0 to 3.0 or 2.5 to 3.5, depending upon the indications. Lab Interpretation (test code = 99924-6) [facility] - Code Piloxo1030-28-59 03:00:48* Test Item Value Reference Range Interpretation Comme nts PROTIME PATIENT (test code = 5964-2) 10.4 10.1-12.6 INR (test code = 6301-6) 0.9 Normal INR <1.1; Warfarin Therapeutic range 2.0 to 3.0 or 2.5 to 3.5, depending upon the indications. Lab Interpretation (test code = 89165-8) Normal [facility] - Code Gynwjj1725-19-45 03:00:48* Test Item Value Reference Range Interpretation Comme nts PROTIME PATIENT (test code = 5964-2) 10.4 10.1-12.6 INR (test code = 6301-6) 0.9 Normal INR <1.1; Warfarin Therapeutic range 2.0 to 3.0 or 2.5 to 3.5, depending upon the indications. Lab Interpretation (test code = 39347-4) Normal [facility] - Code Ckovuy8565-02-25 03:00:48* Test Item Value Reference Range Interpretation Comme nts PROTIME PATIENT (test code = 5964-2) 10.4 10.1-12.6 INR (test code = 6301-6) 0.9 Normal INR <1.1; Warfarin Therapeutic range 2.0 to 3.0 or 2.5 to 3.5, depending upon the indications. Lab Interpretation (test code = 05637-9) [facility] - Code Gxqhpf3187-66-87 03:00:48* Test Item Value Reference Range Interpretation Comme nts PROTIME PATIENT (test code = 5964-2) 10.4 10.1-12.6 INR (test code = 6301-6) 0.9 Normal INR <1.1; Warfarin Therapeutic range 2.0 to 3.0 or 2.5 to 3.5, depending upon the indications. Lab Interpretation (test code = 25562-8) [facility] - Code Deplrx9568-45-42 03:00:48* Test Item Value Reference Range Interpretation Comme nts PROTIME PATIENT (test code = 5964-2) 10.4 10.1-12.6 INR (test code = 6301-6) 0.9 Normal INR <1.1; Warfarin Therapeutic range 2.0 to 3.0 or 2.5 to 3.5, depending upon the indications. Lab Interpretation (test code = 66082-2) Normal [facility]2024-04-26 03:00:47* Test Item Value Reference Range Interpretation Comme nts APTT Patient (test code = 3173-2) 29 26-36 Lab Interpretation (test cod e = 48792-4) Normal [facility]2024-04-26 03:00:47* Test Item Value Reference Range Interpretation Comme nts APTT Patient (test code = 3173-2) 29 26-36 Lab Interpretation (test cod e = 46489-1) Normal [facility]2024-04-26 03:00:47* Test Item Value Reference Range Interpretation Comme nts APTT Patient (test code = 3173-2) 29 26-36 Lab Interpretation (test cod e = 64386-7) Normal [facility]2024-04-26 03:00:47* Test Item Value Reference Range Interpretation Comme nts APTT Patient (test code = 3173-2) 29 26-36 Lab Interpretation (test cod e = 57943-9) Normal [facility]2024-04-26 03:00:47* Test Item Value Reference Range Interpretation Comme nts APTT Patient (test code = 3173-2) 29 26-36 Lab Interpretation (test cod e = 09550-6) Normal [facility]2024-04-26 03:00:47* Test Item Value Reference Range Interpretation Comme nts APTT Patient (test code = 3173-2) 29 26-36 Lab Interpretation (test cod e = 51114-7) [facility]2024-04-26 03:00:47* Test Item Value Reference Range Interpretation Comme nts APTT Patient (test code = 3173-2) 29 26-36 Lab Interpretation (test cod e = 33668-7) Normal [facility]2024-04-26 03:00:47* Test Item Value Reference Range Interpretation Comme nts APTT Patient (test code = 3173-2) 29 26-36 Lab Interpretation (test cod e = 80986-4) Normal [facility]2024-04-26 03:00:47* Test Item Value Reference Range Interpretation Comme nts APTT Patient (test code = 3173-2) 29 26-36 Lab Interpretation (test cod e = 26071-0) Normal [facility] acute hospital without Diff - Code Camlup8510-27-11 02:52:09* Test Item Value Reference Range Interpretation [...] 367 166-358 H MPV (test code = 17846-4) 11.3 fL 9.5-12.9 RDW-CV (test code = 788-0) 15.4 % 12.0-15.5 RDW-SD (test code = 37935-4) 43.8 fL 39.0-49.9 NRBC x10^3 (test code = 9653012510) See_Comment [Automated messa ge] The system which generated this result transmitted reference range: 10*3/?L. The reference range was not used to interpret this result as normal/abnormal. NRBC/100 WBC (test code = 9884088938) 0.0 0.0-10.0 IPF % (test code = 2372014624) Lab Interpretation (test code = 59468-5) Abnormal General acute hospital without Diff - Code Brbuxa4301-02-66 02:52:09* Test Item Value Reference Range Interpretation [...] 367 166-358 H MPV (test code = 86481-1) 11.3 fL 9.5-12.9 RDW-CV (test code = 788-0) 15.4 % 12.0-15.5 RDW-SD (test code = 33308-1) 43.8 fL 39.0-49.9 NRBC x10^3 (test code = 2566736313) See_Comment [Automated messa ge] The system which generated this result transmitted reference range: 10*3/?L. The reference range was not used to interpret this result as normal/abnormal. NRBC/100 WBC (test code = 9016363397) 0.0 0.0-10.0 IPF % (test code = 1156508924) Lab Interpretation (test code = 91996-4) Abnormal General acute hospital without Diff - Code Roowck3276-48-35 02:52:09* Test Item Value Reference Range Interpretation [...] 367 166-358 H MPV (test code = 99448-1) 11.3 fL 9.5-12.9 RDW-CV (test code = 788-0) 15.4 % 12.0-15.5 RDW-SD (test code = 55709-8) 43.8 fL 39.0-49.9 NRBC x10^3 (test code = 1314450525) See_Comment [Automated Mebelramaa ge] The system which generated this result transmitted reference range: 10*3/?L. The reference range was not used to interpret this result as normal/abnormal. NRBC/100 WBC (test code = 9352517314) 0.0 0.0-10.0 IPF % (test code = 6889055659) Lab Interpretation (test code = 78999-5) Abnormal General acute hospital without Diff - Code Hnsxka6866-55-90 02:52:09* Test Item Value Reference Range Interpretation [...] 367 166-358 H MPV (test code = 58777-1) 11.3 fL 9.5-12.9 RDW-CV (test code = 788-0) 15.4 % 12.0-15.5 RDW-SD (test code = 50053-1) 43.8 fL 39.0-49.9 NRBC x10^3 (test code = 8127067454) See_Comment [Automated Mebelramaa ge] The system which generated this result transmitted reference range: 10*3/?L. The reference range was not used to interpret this result as normal/abnormal. NRBC/100 WBC (test code = 4458260888) 0.0 0.0-10.0 IPF % (test code = 2028810296) Lab Interpretation (test code = 64409-7) Abnormal General acute hospital without Diff - Code Mhxrod7980-29-28 02:52:09* Test Item Value Reference Range Interpretation [...] 367 166-358 H MPV (test code = 02329-6) 11.3 fL 9.5-12.9 RDW-CV (test code = 788-0) 15.4 % 12.0-15.5 RDW-SD (test code = 04686-1) 43.8 fL 39.0-49.9 NRBC x10^3 (test code = 7370639301) See_Comment [Automated messa ge] The system which generated this result transmitted reference range: 10*3/?L. The reference range was not used to interpret this result as normal/abnormal. NRBC/100 WBC (test code = 8009388704) 0.0 0.0-10.0 IPF % (test code = 6256365831) Lab Interpretation (test code = 75128-7) Abnormal General acute hospital without Diff - Code Uzbbqx6315-40-58 02:52:09* Test Item Value Reference Range Interpretation [...] 367 166-358 H MPV (test code = 24476-2) 11.3 fL 9.5-12.9 RDW-CV (test code = 788-0) 15.4 % 12.0-15.5 RDW-SD (test code = 69979-8) 43.8 fL 39.0-49.9 NRBC x10^3 (test code = 6160520461) See_Comment [Automated messa ge] The system which generated this result transmitted reference range: 10*3/?L. The reference range was not used to interpret this result as normal/abnormal. NRBC/100 WBC (test code = 0531480379) 0.0 0.0-10.0 IPF % (test code = 7483160299) Lab Interpretation (test code = 45230-6) Abnormal General acute hospital without Diff - Code Ikoqaq7715-08-52 02:52:09* Test Item Value Reference Range Interpretation [...] 367 166-358 H MPV (test code = 80947-9) 11.3 fL 9.5-12.9 RDW-CV (test code = 788-0) 15.4 % 12.0-15.5 RDW-SD (test code = 69613-5) 43.8 fL 39.0-49.9 NRBC x10^3 (test code = 4899687397) See_Comment [Automated Mebelramaa ge] The system which generated this result transmitted reference range: 10*3/?L. The reference range was not used to interpret this result as normal/abnormal. NRBC/100 WBC (test code = 7228776369) 0.0 0.0-10.0 IPF % (test code = 4164040461) Lab Interpretation (test code = 98531-4) Abnormal General acute hospital without Diff - Code Bsqeem2037-66-01 02:52:09* Test Item Value Reference Range Interpretation [...] 367 166-358 H MPV (test code = 44274-1) 11.3 fL 9.5-12.9 RDW-CV (test code = 788-0) 15.4 % 12.0-15.5 RDW-SD (test code = 28617-1) 43.8 fL 39.0-49.9 NRBC x10^3 (test code = 3286339565) See_Comment [Automated Mebelramaa ge] The system which generated this result transmitted reference range: 10*3/?L. The reference range was not used to interpret this result as normal/abnormal. NRBC/100 WBC (test code = 0734542810) 0.0 0.0-10.0 IPF % (test code = 3993507627) Lab Interpretation (test code = 13390-1) Abnormal General acute hospital without Diff - Code Qayznk5052-37-78 02:52:09* Test Item Value Reference Range Interpretation [...] 367 166-358 H MPV (test code = 82890-8) 11.3 fL 9.5-12.9 RDW-CV (test code = 788-0) 15.4 % 12.0-15.5 RDW-SD (test code = 07896-4) 43.8 fL 39.0-49.9 NRBC x10^3 (test code = 8986916639) See_Comment [Automated messa ge] The system which generated this result transmitted reference range: 10*3/?L. The reference range was not used to interpret this result as normal/abnormal. NRBC/100 WBC (test code = 5530902542) 0.0 0.0-10.0 IPF % (test code = 3002328146) Lab Interpretation (test code = 45770-2) Abnormal [facility] Glucose (Age >30 Days) - Code Stroke 2023-06-08 02:39:00* Test Item Value Reference Range Interpretation Comme nts POCT Glu (age>30days) (test code = 3342) 124 mg/dL 70-110 A Lab Interpretation (test cod e = 46442-9) Abnormal [facility] Glucose (Age >30 Days) - Code Stroke 2023-06-08 02:39:00* Test Item Value Reference Range Interpretation Comme nts POCT Glu (age>30days) (test code = 3342) 124 mg/dL 70-110 A Lab Interpretation (test cod e = 50811-4) [facility] >30 Days[facility] - Code Stroke 2023-06-08 02:39:00* Test Item Value Reference Range Interpretation Comme nts POCT Glu (age>30days) (test code = 3342) 124 mg/dL 70-110 A Lab Interpretation (test cod e = 54872-5) [facility] (Age >30 Days) - Code Stroke 2023-06-08 02:39:00* Test Item Value Reference Range Interpretation Comme nts POCT Glu (age>30days) (test code = 3342) 124 mg/dL 70-110 A Lab Interpretation (test cod e = 07828-7) [facility] >30 [facility] St[facility] 2023-06-08 02:39:00* Test Item Value Reference Range Interpretation Comme nts POCT Glu (age>30days) (test code = 3342) 124 mg/dL 70-110 A Lab Interpretation (test cod e = 58809-6) [facility] >30 Days[facility] - Code Stroke 2023-06-08 02:39:00* Test Item Value Reference Range Interpretation Comme nts POCT Glu (age>30days) (test code = 3342) 124 mg/dL 70-110 A Lab Interpretation (test cod e = 28306-9) [facility]Age >30 Days[facility] - Code Stroke 2023-06-08 02:39:00* Test Item Value Reference Range Interpretation Comme nts POCT Glu (age>30days) (test code = 3342) 124 mg/dL 70-110 A Lab Interpretation (test cod e = 88978-6) [facility] (Age >30 Days) - Code Stroke 2023-06-08 02:39:00* Test Item Value Reference Range Interpretation Comme nts POCT Glu (age>30days) (test code = 3342) 124 mg/dL 70-110 A Lab Interpretation (test cod e = 11032-6) [facility]Age >30 Days[facility] - Code Stroke 2023-06-08 02:39:00* Test Item Value Reference Range Interpretation Comme nts POCT Glu (age>30days) (test code = 3342) 124 mg/dL 70-110 A Lab Interpretation (test cod e = 87392-0) [facility] [id number] 19:59:01* Test Item Value Reference Range Interpretation Comme nts FERRITIN (test code = 9447530002) 22.4 ng/mL 6.0-137.0 ZAINAB (test code = ZAINAB) Biotin has been reported to cause a negative bias, interpret results relative to patient's use of biotin. Lab Interpretation (test code = 54624-5) Normal [facility] [id number] 19:59:01* Test Item Value Reference Range Interpretation Comme nts FERRITIN (test code = 4247044371) 22.4 ng/mL 6.0-137.0 ZAIANB (test code = ZAINAB) Biotin has been reported to cause a negative bias, interpret results relative to patient's use of biotin. Lab Interpretation (test code = 68742-8) Normal [facility] [id number] 19:59:01* Test Item Value Reference Range Interpretation Comme nts FERRITIN (test code = 3911413544) 22.4 ng/mL 6.0-137.0 ZAINAB (test code = ZAINAB) Biotin has been reported to cause a negative bias, interpret results relative to patient's use of biotin. Lab Interpretation (test code = 73320-0) Normal [facility] [id number] 19:59:01* Test Item Value Reference Range Interpretation Comme nts FERRITIN (test code = 2135041140) 22.4 ng/mL 6.0-137.0 ZAINAB (test code = ZAINAB) Biotin has been reported to cause a negative bias, interpret results relative to patient's use of biotin. Lab Interpretation (test code = 27750-5) Normal [facility] [id number] 19:59:01* Test Item Value Reference Range Interpretation Comme nts FERRITIN (test code = 8690467270) 22.4 ng/mL 6.0-137.0 ZAINAB (test code = ZAINAB) Biotin has been reported to cause a negative bias, interpret results relative to patient's use of biotin. Lab Interpretation (test code = 96106-2) [facility] Istyt8015-76-02 19:59:01* Test Item Value Reference Range Interpretation Comme nts FERRITIN (test code = 5435271512) 22.4 ng/mL 6.0-137.0 ZAINAB (test code = ZAINAB) Biotin has been reported to cause a negative bias, interpret results relative to patient's use of biotin. Lab Interpretation (test code = 85645-2) Normal [facility] Ichuj7973-53-01 19:30:52* Test Item Value Reference Range Interpretation Comme nts IRON (test code = 4348607827) 54 ug/dL 50-160 TIBC (test code = 7296261431) 434 ug/dL 250-410 H % FE SAT (test code = 6810367310) 12 % 20-50 L Lab Interpretation (test cod e = 80261-5) Abnormal [facility] Dblhi2627-48-27 19:30:52* Test Item Value Reference Range Interpretation Comme nts IRON (test code = 7299125532) 54 ug/dL 50-160 TIBC (test code = 6609782109) 434 ug/dL 250-410 H % FE SAT (test code = 0625196303) 12 % 20-50 L Lab Interpretation (test cod e = 23909-2) Abnormal [facility] Ffehf1643-12-99 19:30:52* Test Item Value Reference Range Interpretation Comme nts IRON (test code = 4862010854) 54 ug/dL 50-160 TIBC (test code = 4210007375) 434 ug/dL 250-410 H % FE SAT (test code = 6516590664) 12 % 20-50 L Lab Interpretation (test cod e = 69664-6) Abnormal [facility] Olzdh8886-14-67 19:30:52* Test Item Value Reference Range Interpretation Comme nts IRON (test code = 6007529254) 54 ug/dL 50-160 TIBC (test code = 0183669215) 434 ug/dL 250-410 H % FE SAT (test code = 8128805937) 12 % 20-50 L Lab Interpretation (test cod e = 30922-5) Abnormal [facility] Rmtny7199-07-78 19:30:52* Test Item Value Reference Range Interpretation Comme nts IRON (test code = 1988205548) 54 ug/dL 50-160 TIBC (test code = 6425214819) 434 ug/dL 250-410 H % FE SAT (test code = 5631584347) 12 % 20-50 L Lab Interpretation (test cod e = 26646-2) Abnormal [facility] Lbmpc4503-16-25 19:30:52* Test Item Value Reference Range Interpretation Comme nts IRON (test code = 2978171290) 54 ug/dL 50-160 TIBC (test code = 4994281689) 434 ug/dL 250-410 H % FE SAT (test code = 0038541690) 12 % 20-50 L Lab Interpretation (test cod e = 82511-1) Abnormal [facility]2023-12-11 20:01:05* Test Item Value Reference Range Interpretation Comme nts [place] (test code = 4793643991) 0.5 mmol/L 0.6-1.2 L ZAINAB (test code = ZAINAB) Toxic Range: ? Greater than 1.2 mmol/L Lab Interpretation (test code = 63582-6) Abnormal [facility]2023-12-11 20:01:05* Test Item Value Reference Range Interpretation Comme nts [place] (test code = 6200638502) 0.5 mmol/L 0.6-1.2 L ZAINAB (test code = ZAINAB) Toxic Range: ? Greater than 1.2 mmol/L Lab Interpretation (test code = 28057-7) Abnormal [facility]2023-12-11 20:01:05* Test Item Value Reference Range Interpretation Comme nts [place] (test code = 5430390015) 0.5 mmol/L 0.6-1.2 L ZAINAB (test code = ZAINAB) Toxic Range: ? Greater than 1.2 mmol/L Lab Interpretation (test code = 30688-4) [facility] [id number] 19:23:05* Test Item Value Reference Range Interpretation Comme nts Case Report (test code = 1978856496) Surgical Pathology ?Case: [id number] ? Authorizing Provider: ?Dominic Keita MD ? [...] HPylori ? Final Diagnosis (test code = 7098488684) [id number] FuZzEwMzNcZnRuYmpcdWMx RKblxiXqSVnsiKlqNHO8CU FuPB4ysVodjTj0dAthAXPs wjZ1uOWxRYhyj3caKCP8z2 joosutOMYkEEmzGv9vzTAg fNfzNvTrYGIhOPr3gY29JS JztX3xsGBxRPv7VFBszTIr maHrEeUrASNviIGfxYY7ZB QmTM7ykdcoHJvaALffUPUy ayB5JUVzzDCcD3WnBSYcHV 6jzuvnMZR9TYutTABhCDZ8 CeIwFDJga4Jtudq0PfPpbC FyZFxwbGFpblxmczIwXHBh baHTCxPEWS1CZDSIGAXJD0 fNCOLCVT3NFVKKMhjywTZm ARThXVIgOVFUBW5HSZFyU1 gMSlIoZF0NVJBhJQXwvPLa UPRnynFOWfZJOR3QDF9ETF wgQklPUFNZOlxwYXIgICAg AHWvVLjZS0DWHAVaGDOXT6 IXKCrVPXarOa2qVSQLTX6E X3fPF5RCHGREQL4YKCzmVT JnWGFaDIJhOG4NAAhxNRJX GW5ACUKMSZNDIKvUFOBIAE LCSZjLXQFVS2ZGQOtZCQEt ehveQBDaYx0vF9UXZSVDQT wgQklPUFNZOlxwYXIgICAg CMTbCSWVP7VJEmGOGG0IE9 5MTWVRQRRFZR1SFBXRLYmA BW7YWRTBEDZVIHGDP5RorE FyICAgICAgLSBOTyBFVklE KB6FFLTBMeRHZUyROVNpRU lTRUFTRVxwYXIgICAgICAt VU3SSAshGNCOYP8MIJAFKo dBTklTTVMgSURFTlRJRklF HRQOXSBXAU3PWp1ZLJLYLl xwYXJccGFyfXtccnRmMVxz p1QwT4UzDbOzZYvzqjZaAG WzXztuibxnEMRdMYN2vyVs WLPtJQvsVQVkOVjtCp6idZ FbsMxySoCtFZGrl4nnmlPY BGyoCnUhJ875XJMsDOxji5 gue6GjJWPrbUNcf9V2PQTT htkroEk8z7afGnKzWsF3cK UwWDhnV7hayvEruKDaN6Ow gWVwpYo8sGtcU19eo8O8Kt xsO3oaIYCgIZVmK9QwAG2l XCUoHel6EUU9YKY2RAPhFF AkT6ZhKZ2kSOOsqFNyOXj2 q2mwkYbeTQOvJZQ4d8mvYA ltbnN8CP6fkx2qgNf4q5jq czEgRGVmYXVsdCBQYXJhZ3 AusAryMh3ovAn7rCvdZvuc SIH9Kfw2UQ1ond46vjj3xG eiGFZiinwnRpI2TFovBRCd kgpnLPw2QGmmKFAyvVX5QD WumLVlT0YiZAGvRT1nmil6 SHU2CXbtZBJgArP5IZEovH GiTGBfiPsgXHpcq726RQH0 CqGhNK4nM1Zrd9I8aC2fqN AgSSNrmVMfAaSvXYWoqq5b cMItOAfmg6VwUDD3ysR6lJ RvtIDlHRCsQX40Orpbp1Hv NiyxSTZ0XLRoixJie9Esv3 jmOgHtfvWmM3voY8ObRZEm GIVfLCXyRbJabjNth4Mnw0 YofCNjoWa9k8zeUHLmSNBi uGghq6nmDLF8QZRlO3M9zP Lju9oaNDwaSJXksGQ7nvK5 FHEujLFvI7ZvpB0uHDXxQV 4thzs8e0urMPG9XEiaNISh BhE9wrH6TURedITjGIIuiH ixBCsbf159WVF4XsBsIKCv k0HyM7IddVctP22deDfhK7 4bVDGnhKsrvP2znDowyB3m ZjBcZnMyNFxxbFxwbGFpbl xmMVxmczIwXGxhbmcxMDMz SIvjW2uvRgDkKWMyePdvPK ivx8KiLZPeUHLdAocvqnFz XHBhciBJIGhhdmUgcGVyc2 9uYWxseSByZXZpZXdlZCBh yHvqg9GjT8ijSW3cE4MakF HezfBzceFwQFwqGJCpn9p8 uZKolHvue0PhbTZhWD58vz HrMRMsTEV1FMHxn9ofWL27 pmklTxNtqA49mdMnatYvJX Ubo7qvY3nqyTGlj0Chh0Ir xxCdAPgvj9CbND5rtYNmba gvaQM6PMCzsUBxpgNtqaE0 rMjsTVJlhL1baL5ugQuwdB 7vIsCyLlSwXDyfQW7eWEDs N8jidXPwHBBeROBcX5jbEk TvwS8mnQmrVdpuzhB7LLRr cn19 Clinical Information (test code = 5477736756) Shivani Schuler is a 47 year old female with IDA1. Gastric polyp x 6 r/o adenoma2.Duodenal Bx, r/o Celiac disease 3. Gastric Bx r/o HPylori Gross Description (test code = 5511864231) a5jvpZVzQUJntWHQLZJ8JO IgZP1mxNskwHa1sLyqOXKd dvJ1jSGnQGuun2ihHPL3n8 dmyjBNZiwjQVQhIE0uOLoq LOKjLB6gYuRuWNPsJlJiYT BhcGVydzEyMjQwXHBhcGVy pFF0TRWiBI4qimonNHjeJV avYAPeusV8WRYoaVHiU2Rm OXHdFT3fqaxrMLB7GCVWNd twNw4clJXgqZcxGiEdHzPa YXJzZXQwXGZuaWwgQXJpYW j0qU5FNhclXXQ4LZSSEfns YcluqEfdm9FzmMLeAXZyUF xcaWQgNTEwMDAgXFxkYiBP WrKsMcV0Sfq4DRF6NpF1CD k6FAGGVZEqVxueODR2JpG5 KOp2JPJmII8uRRewhRXsVA pxDaizIEecG664GKvpJRDq A9GhI3SxSZskMsHgSMyrBE GpULQlDMuyEPIwS5BSMFEc JXQ5PyFlUYAmUOp0RHfwH1 LKXBBsOIUdElN0SLLpJdJ1 CEe8SUMWXz0rIUpiZlWnFY d0LFH5KUh4EpEeRAMnXcEm XNUkERMnHKsjxMSuWK0qsY bbEFGdAS5LCZUnYGstQIRl IqLtD6AYE9sFDX5sKLibsL JjaFxmczIyXHBhciANClxw LWNvYN7RIRRlGXjbDIg5ob RsGQYaSvOhFHWrH58yd6IQ a1RoAZ2JBAc1eaPhggxdbE 3mAHRcfcLqSRiKsIKkhJ6u eqCXAIaiYYYxU0PlxbZwZS kzRCIuff4qjRcvRMfjQzRx bGVkIHdpdGggdGhlIHBhdG ptcfRmQ0X9zsQvIJ6vPAGQ HHDklP0yTLJfCMDmh9ZtaK JukWjfR4ZcfPUqSpSgg9v8 kZM2RAHmsgVnGWKvgGWdTX Pndo9aETcvYiDtN6C3ITQa BQNsd17xrTV5pdOhUcLbsM u2oXEsJQZ3RN5meCjihxIz k5e0cZ4wQDWcp4W2LSSzr0 E2OXRuncXavMHjpDOpKPHk YV9eabQbIL98HPYkTPznOP glOUG5JJY5ACLnfEKlb9ja cgiyOc8lLAbbWB0zCNecAO 94CVBaGPboDVZeB9JbW9E8 SCrrUGTyTWMpbOWmrM1scy QmqzQehOm7VVNzSIT4pUZl wBsoYRPdHqpsePR6PUVoMn EuboLfl3LomQe3jTBiMPrd FOWqtJ0bkF7jZOGkANSmpt VIRckuPBYcPAbkn0JsQSbg cGljWHNhMzAgDQpcZXBpY0 0pw7ZNr6Oxb3lglArbj2Sd qKYsFV4rjOOxXF4Kf8amZM UslMFvKVH9AVabw2nuWUzl BQQ8PVCkBvNdNSKrXY3JYn YfFJsaCMh7RVrvYZp3QGx8 VE5XTxYdBVAtDhd0TpI8Kl TaWPe1UKzqVZ2RBTF9ZWBc GVSlWCcuHFX5AGZvJDy2XL IgXFxzcyAzIFxcZmwgXFxu S26vkVEfXFipZyFuNVdtiA pzICVkNIG7MZ3ENCZkXtFi N7QQT2yFAS5xUmxjkqFgPK BynyVQXkvqLRGpKA3RFFFq DDexBWn7ofUgZXQzNgLqTA IbY88jq9NGl0VyEO5EPId3 bgSwnldlvH5yDTIiumHbl0 IzMFxlcGljWHNiMzAgDQpT oILiwC1jjwUZZOnsNEWxK2 CgtqFnTFicMRXpcf5feWuq IGxhYmVsbGVkIHdpdGggdG owAVJphYlsvrNsX2U9bpEx DU3vAZIPMJOoaI5tFKQcTY YvMVBrRERlhN5dPBO1x1Uc orKtYBFSDKAwwKyhBQ17jP BjZWxpYWMgZGlzZWFzZSBh veQwfnIzx39hsfYid6MoYB 9cgSuhJXhLPLmtCuNySR5b CUOesmSnf2QjZB7mNWKxnF OfZICuwcaqkQJoXLq7vFRq KYLwDwNraRgwe0VtHKZqJM xbEJ15qmWzIW4oSTmeTG2o AMylDQ6aWCVcWVDfJQUtNu EuvTBnTdCllOKySaTgQ08w JxUSvHVnj7AmK7syGR3cwE KeBzsdbLUnTWJfeOxoy6Zw nWNhZWSjk1QpgAZpEZgqZF 9hBWF5Le7xvDRrYPTcqmW5 w3UdMWibLBQbNjvdSTYrWI geb3TgZKPcwEOVn9GiDL6A XHBhciANClxzYTMwXGVwaW NJv0QkCFQSFehjxAekPlPh rDKiCuY2ULLypQHrZOF9PO 6ruUffVFYtCJh0PXduUWPj W4SaB5DeUWvoZoPrNUslSX ZaEIOaTFfsVXTgL2LNHOKu YYX2XqGaPBEtWVn4LWrfT2 AMQIWvXFExIxI6YTX2UhY3 VFq4GLCZJy5pYRvpPyDoFF NaJqY8IBq3JjAlQTKdUrEx ASMpPQYmCRrjoFTiWB3kiH aiTOBrPVJzLLY3JHGzpWHM q1XsTIHdXLwdHwTeIBTEME TGVM4PSeEPQHZaTaPwhUPh AM9VMPDtuqHoXYwguZonaJ 6dwXKfZ4atLoKaMcvbxScv TmVzdERvYzEgDQpcbHRycG FyXGxpbjBccmluMFxzYjMw MTPmeJCQj5UqEICDSsHnBY NpbWVuIEMgaXMgcmVjZWl2 HQXetA9qEq0ztWAbmQ3vaW SaBDopVWXsz3m8wCV0tVQx kUG2dFFaeBgjHlOsGD0xaN WoOHPSAZ51xSRhtgLdEJOx sS5aRPJcCIKxUEL3lzqkRB EKJHH6qUWcx9T4PHguWIK8 lN3hdEkxOeZyN8J5VNAhWB Imi98jlGP1zuYpUrZdVVYn cs5vxY6kHCktorEbvEsvms Ygm7C0FNMtf8Y5MYJnbqCd gBKwhYChCSRtDkH1DNDwFp X6SFCqLCZmyUXzTRBeEV6y VGhlIHNwZWNpbWVuIGlzIG UybXRgicQrPCKilk08F2em JUSxfM0lb4xoDjJoNKRdCS TcyTPghCH2JVMuqO9cqV22 esHxsnHZQP2czBYzNH9WVN NiMFxlcGljWHNiMCANClxw YYLvCVnxe4CmAMogwNldWT BtNlVgRKkTeByeKYJBS3rq lBWyFWdvKVRLKWiBY9QUAO 3ORDSazSJROTA5YR1jZEhp RGMzL0FaV7ZybpV6y3ykuS tor5UeqKQvFJ0pdYPdHY0B XHBhcmQgDQp9 Disclaimer (test code = [id number]) d5zsuYLlNPZpj0inLWNgjI FuZzEwMzNcZnRuYmpcdWMx HZmxgnEdIDpxq5MqV8QgYd AwMFxhbnNpXGRlZmxhbmcx ICDyIHF4lbAtRAKxFZngKL GzYBpnFu8iaRGxgBtpIzGd RWVzi6anggPVPHmnBeIiN1 13ISFnHJqtc1cfw0FnZQAz hNNhc8Y1TBUUlfxbkIr3nT qrA94mb4E7XqtpN9gxRDIc VIArE2OeTK3zNRLhHaq2YJ K8VIE1NFPeQMLlG3YyPD7b XLJzwNFhAQw6i8trjDdoGT LvMDQ2q4zaDPhzxnDxDZ3u et1dfOz7e0oewxOhBQXkRN OtoNBXSCDxZ1RefEtaHp2j qPa9hThgKlxiURI4Ora4WF 9pft14hip7pXcpLLExzjuc UyA8JNzjLWQxvsodEDq0OV jhEUFvhOU9BAQpfGCuD2Su AWNzLB3kjud1XCL9QRejTP OoCkG3QPJubXOmXBMqmVkv RGeve575UGX8UoQoFH1eV0 Luf4E1jT4mlEUcSFErgEHq KfEdEGSuse3avHCpRPkki4 WuUXN8uiJ9iNDpkPSdAPJc SU16Vwnpc2TxBggqb4PmO7 8amDC5MXtgu5dwPF1fSoQ4 ooMfMDfwi2tsnY7zNoP2FO qtZX0aWG3pINIinP7ckhtq XHBnYnJkcmhlYWRccGdicm KaVo5lkVfjYAU8RKysR8hu lJ0cXmQ1URijU4qahJ6oTI k8GLwefQP1NVIhuB8hDX1x gycvs6htMJhjKHbwCDVfig E9ouA6BSQbpUHqA2KglC5b XOYnAH3yrkmtn3hgYSO8AR rrIJWyZBP9OaKyQLPyo0Zi hfa7VdRdy9GciFRoYRahB5 1av619VWCbdmKoQ2jffIVb dhlckPThijeoSNhmzhO3QF JkcxRaz7JkGBOvSSH2LFft OPutqWGkVRXclGrjl0foG2 RscGFyXHBsYWluXGYxXGZz MjBcbGFuZzEwMzNcaGljaF qgYAokJsSiZEIuIKcuB2bh KsZsW5GtVHNbZrTrvWHmM2 ggVGhpcyByZXBvcnQgbWF5 EDpyT1u9WFZxxpTqeMj4aj GcUbJfZHRaUOE6MLbudUXc PFBlj7VykcmqsKJoVi8gnQ QjFSGueR4bQVXyIRNqWEth MH1hySg4DFJUxLQusIJmGp YZHNCnYD63yrJcHJEXhybf m4E3XRnxOQLgf8JxjHXqE4 unu5ReULVvd68eND0yl4R0 s6srWFG1BV4rt0NvAVRzrY VhqDQxAZGbl6Pqepssl4Ac XXIzdcMod5YjYEUioqWzxL TbYFPmxgBekq4xcrBbZHPy IWBfB1XmqshudMbtncXmUK Wntg3byeEwZSL1UWKDUUSy QYHxn0OolK1ngYJKKTU3xQ Gowu8uxmDKmKAuHCUljz07 UEXoTF9bO6mdUPHoLJMzcr EtuDOgj7UdKMJfuSD9uWRn VV4BMjBQg56uRPNjXRIJzk IzAOJscGhsqUU1afJ3aO7h IChGREEpLlx+IFRoZSBGRE JkCK9kriAch0YdefJwrLin TUHhqFPvc9DftUXmp3ScyR jqe1YdmONjrXBsYI1iVBIa clxwYXIgVVRNQiBMYWJvcm T5e7MvHQUhEICrJYZ8xEfe wjv5WSKirE1qTHChK9dntz vgMDsrXELdl3WanF3flHSS sFQmb0HtgFImvWRUfDXpPJ 6wilNsRWjMMTbZBLI6ddDw VITxr0UjQGptE8jyM66mvJ mkzZa7vBQ7RKA8jG0eAcd+ IFxwYXJccGFyIEFwcHJvcH JbGOVwrHajorCiO1HgzoRc gA3knYQxcnSyJM5pQS6lM6 M2zRDcWYAgsqCln8zuIUne dmUgYmVlbiByZXZpZXdlZC Upo6WzYMnlEAH7WPmolgSv bmNsdWRpbmcgSCZFLCBTcG FzuFUwHHE8OQvjkwEqvmHs XO5hdV6xlGafcN1gyIPtoV W1xnktZUZvVYIbgRjeVZYk RP1lcIboeV2fTaTaHeJrBH nqQG3wMAFhC4fmnMFdWIYs SONoS3voRxPilF7ctSvhYS xjZjJcZnMyMFxwYXJccGFy XHBsYWluXGYxXGZzMjBcbG FuZzEwMzNcaGljaFxmMVxk KfTiRIHzWDzrX9ndYhYoX1 NcNBEvRfAmiIFgR4wiYMgf WAN4FOBpIB9xwVTsUG23sF Psy2lcIAncySwsjh4nE76y eIUmRIogsYqlRYPid03ca0 KxBTAhaxDuzm7pSLHfsdJ9 jA4bTFPawWcrJAWrbOOrIS Igp3JsNKmknJSemnAjQSjk RAHrVDOkxINxhtD3veJqab MdyhQhFLMenVcbXCIap6Uy NWPlYYgte5Kgdp7urKRtUQ ObofNQzMdrcJGnsL6nO8Mr TFByTKJoug7cMCVjwU2eRE fta1QublafALSwMUOsMUCc xpKmnn8iGYMtoPGVOU7LAZ cdtTQjz7UvkrQxK9rRHEY0 NUQwNjYwMjgxKSBleGNlcH CmPPDijy70SDCnsL9bfIqb WANafQ1wtW0zaTjmeD7zMg GwWzPaLUidPP1iSYAvZ1jx jFJaZVRqFNKjT0feFjWiaJ 9jaFxmMVxjZjJcZnMyMFxw YXJ9fQ== Embedded Images (test code = [id number]) [facility] [id number] 19:23:05* Test Item Value Reference Range Interpretation Comme nts Case Report (test code = [id number]) Surgical Pathology ?Case: [id number] ? Authorizing Provider: ?Dominic Keita MD ? [...] HPylori ? Final Diagnosis (test code = 6452181735) [id number] FuZzEwMzNcZnRuYmpcdWMx UBhtsgTfSMibmFpmIUL3ZJ OcAB3svYqzpWg5kLvdTVWv rrO5sRWjHChht0orQED7i2 chaxwpYAWmQBmzAa1vgUJu xVfbRkAsWUGgEHu0oQ03ER KgvC0riQJbGWm8VNDabRQg noFnWsLeEDLmrQRffWY6AL VuFO9omdgqQLxdJRtzNQFl dfO8CBPctMYuM5DoYRAkBL 0ivnbzNEA7WQifQCWoINK2 UyXnIUUvw1Mcwnh5MfAzaY FyZFxwbGFpblxmczIwXHBh jpFALeZYLA6EJGIAQWBWE8 xEYYUDJK1PKVVNShgakEAu NTBpZVOkXLKIWM9XIWNqP9 kELfAgMO5LYKWvRIIhzYNc BVSytgGOAbDELU8NCG6NTA wgQklPUFNZOlxwYXIgICAg EPIpHJvQA7PFPOJuHDTUY6 LNWKkWDRfzZd9nYCLPLA7C A8rHE5CSTOUJZP0XZVgoEC AhECDbKSZvKP3RIMzhAWAP IS1HBBSFPZZINVwRYXYBNL KTCEpNTBNRH5SFTUeYDLOv jgngVUSgSk3kB9KBBSVOSL wgQklPUFNZOlxwYXIgICAg EBFlEDMMA5UKSyJWCI3VT1 5VPCCXGIHPDI3HMUXEAOgN JL1CUAPEGZLYIOMYK2HysL FyICAgICAgLSBOTyBFVklE ET5JXUENMkXUIVqFNFZhUU lTRUFTRVxwYXIgICAgICAt NJ0YGWksDGXAPJ2ZWPLHIr dBTklTTVMgSURFTlRJRklF MRQIUELBFQ2KWh6UMTIMVw xwYXJccGFyfXtccnRmMVxz s0HmD6QxOdUgIPpjcoUiKG IbMqsuweahPRWfFPE4leWq OJAwPKbqOSFcTAkdSt2fvU UejCcbFtVzMRGbh8gupjDI HYshVwWoQ954JEDhOSush7 fny1RhEXUxcWZxo6X9LCVU naieeNc6u6czZsYtVaB0mZ QsIFspA5ibdgVqjIGtW7Gb kYOtnOh7vUeiY56sq3H7Gs cmE9quMPEtPVCwI0FcEO7v WPCsNcy8QZL6NGF1TYLlYP XpC7AaMC6oYTQxdURsJYu8 n2agkXmtDHCnIZL8y1thQL vivbY6WZ9ark8ydOt5r9ge czEgRGVmYXVsdCBQYXJhZ3 GskUgcQg9yiUz9zAbiWxxn QIU2Hmf5GK0ttd67qfy1gD qxGRVevnexZxY1ZIclIGFx ekmvSAy8ULljCFNccES4TV DxwFFwI1AcSTGdEO7srjx4 TAH2XJfrSTAzSlT5BIMajL ShJJZzhOhkBXoit090PGD7 KzJzKY8lV7Ujf9E3yX2aqV IbOJEynLLvFdQcNYVyyc2h mRNtCYggz4GgACA6qqC7jN FoqYJqQMDcYB47Yaraj1Mh XkscYLQ0XSTpqbPiu1Ixe5 qbVgLbbaNrZ8hhY2HqURTa CTMfVLVjAdLscqAsf2Ikv3 NchQUdrUg8t1foJIOcXLSn uVwmx4qkXUK7YGPrY8C0dH Iuc5fiKAdgOWYklGM8phX2 FDGlmSEhP2DorQ0vRSCqJY 4ight0b5niEGM4WYbvXLYx JjP2ngP4NOUvrMCjIVHcdX jkGVylt466HHC6ZjBpAHZf t1SmG1QavPeoI93aiUbsN3 6oFBTbeVggjS0qqFyirJ7m ZjBcZnMyNFxxbFxwbGFpbl xmMVxmczIwXGxhbmcxMDMz LTvfC7fdDkPpEARuzMaoCP oct4EvVMTrSUBfDyjtptVd XHBhciBJIGhhdmUgcGVyc2 9uYWxseSByZXZpZXdlZCBh cJwso3IqZ2apWC9dL0XhlW PpkbLjxxWhDKhzXDJos9y7 iLEykJote1RadULsCG39sa UhVCVjSGI3VRXtq4nfMA60 dszyAkElsW83pjBetbXlAH Hgm1guZ6wyvHZlp2Anj3Le pvVtBAuam4EjZL0obTOwfl kkfJF3VSEkrMHathUlqqJ6 yRqdOCQxyI7umM5bgKlefK 1sYjAwSiKqBUjsHU9kJNAl M5xvaUUnXFFeKLFkX0nqXq XxdD6rsNmxSnuelaC3VAOf cn19 Clinical Information (test code = [id number]) Shivani Schuler is a 47 year old female with IDA1. Gastric polyp x 6 r/o adenoma2.Duodenal Bx, r/o Celiac disease 3. Gastric Bx r/o HPylori Gross Description (test code = [id number]) x1kxhWDyGWBpwHHVPKR0LR EbXJ2deVttmKo1oNmaPMHc izM6pEMoDBuvt7deIRX5z7 xwotUCIxihYNLiNR9lDCaa YMJyXG3nHyFsADYuHnBoMW BhcGVydzEyMjQwXHBhcGVy aPR2INWuTJ1malctEYmyUN mkHOUmlwK7UCYwvZOyH8Yr ZLFnGT0ujyjjVWI2ORRWTl yhEg3ijMTzcAekQoIbNyFp YXJzZXQwXGZuaWwgQXJpYW d3tX5WKoswOHS9UIJXDebk RvvjaNets4QfsHBkVUKtEO xcaWQgNTEwMDAgXFxkYiBP HqAmVgY5Ikp6MRS6NvS2NL x3MILFCFQgKxcfFFV4PzK3 KHe1POFhXR5iDYajaZCcQC iiWehcWDzaW051JMpgYKEz G7QgK1EaLAfcYxRwGZbvHV YrGKTjUAjkYTYdL2AUGTGy AMJ2PqOjQMGtUAu2LZbdH7 SMMKAhOEXbQnV8NEEqNaJ1 PPe3MFIHCu2tHNwuDbOoSL u5PBY3DNf0DzErOKSdHwZi ASRqZJVmESenuSTuVN5jkS afBUChUZ1NTKDcKPkaRZXe JeXkS3YDJ5vCAB8kZWbgxQ JjaFxmczIyXHBhciANClxw DEMdNC5WRWZpHMcqMYl8bi FhDRSkSdPkBJFsY61yp6QD f5GbZD9SJJj4etRgzatjfB 6qXAMljyJxSExZkMMduB1c nrOASMjdYNXnA7IwyvViAA huBSLzlv2rpWarDEizMbVd bGVkIHdpdGggdGhlIHBhdG pennHbO0A6mcLbET7fDEQL KCBqbN3cCLTkUVAso6KiyK JqnUplN3BvbINcLbGpt5w6 tVR4JBWpenCfDFWkvXKkEI Jthz3gWJsiQuZuP5Q6GQXv HJBxq29xaKV5jeRtNsYwqL u0bQTzISJ1CJ7jtCtoufFo g6o8pR2eJXCox4H7UXNrj0 G1PRBvsuDgaPKuqNBnGERv ZD5wutEtJH92JTVfJUvmBF xlXBK7VVL0CPDytLPey4ce nbxmWk3jJEanFU7eYVpyYE 58RPUoVRkfTVWcI4CwM5G4 RXfzZQXvPYIcvBDqpE7kdn VuffErrTt2LXWdKAF2xOPn uMkuZOHmCnkomFJ7VBHcOi IytaOqn2FcsXi3fPDwMIhf OYEayA9kyU7yUDHpYEBclq MLIpanLVNcDBddt6QnTHnk cGljWHNhMzAgDQpcZXBpY0 8nd0FAs7Zyg5lynRuqj5Qh pSFoTP2fsXBbVA8Pc1zwCO HqeBJnZPB4BJmwg1veSRwg RYI0PVGuRkZlIDKbGE0XJi VcIOfjCWq0BBokXJd4IJh5 EL5VDmWzSHFgTzg6XtH7Hq PuRVy6LCqnEW8PAUY3SLMv RYKkLExtKXV8AJQnWTa2NP IgXFxzcyAzIFxcZmwgXFxu L51xuSYiBXwoNlMtLLsrfC fgVLTtFUV2QW0KOSTeTuPj F7OIU9bGGJ1yYecjuqPkZH UwfyTKVwnhBKLqUX5TOAVy ZPybWAb8ieJkXLNgFaGlTO SuD61vp1SCs1OgFP4INMp9 aqCuhowcwC2gOVWcruSdv0 IzMFxlcGljWHNiMzAgDQpT uEVekU0jbvAMXTvcMLPcL0 CypvVtWFjeMNZthy3bqPbi IGxhYmVsbGVkIHdpdGggdG ztBUVihYglweYoU7O4vcBq OK7vYNPKUHXeiV7vYRDzGC ObVDIxSPUzbW0lVSO3w1Zp niVjTPIWPCTtfIslEQ26dO BjZWxpYWMgZGlzZWFzZSBh feLeqsPgs44dsnJgd6CrRR 5aoKmuJHsXGDokXmMmYT5m QUYtvcBha3GmLG0lOYMslP XqHSKcstrmoJMbUMf7bLZx WLMmAwZbjMfyu7WzQVNoQL hjNO23fqAwWE7uMVbkEM1r ZOhpEA7oCWPbSZHcRSYyMy ZbqNJlTxVpbCHwVxYbT91n ToRScODuu5IbL7ldHL4dyG ZhEbcsuGLqUMKtaZnmu3Rv rHDfUMErr2NcwYRiBGxeIC 2ePCZ7Ps0asXSrGYRkhjR3 z3MnYSzgVJTkPaggXLAnGZ sgh0TuEJNkcQGDw4EdGM0K XHBhciANClxzYTMwXGVwaW HTf5LiLRUMRzxczOzyPtCb oJQmHdB1CVChfIIoTOT9HC 0jzHdaZTVgWSw0KUiiLXId B4BaW8YaKZcyKeGuFJjtEG HsCCCcTWwzFXBjP4BKIWEx PXZ7OwCuDIBwAKa7UYyiD7 LJVRZrUEPuVjF9DOJ9PzQ9 LHv1VOPOKm6eKGajNxSgWT MzFbE2UFt7IsXdGIKoDpHl CVVmJKGwESjpqCYrIR4siL txGZRiPPHxSVQ6LVSwrZHI c3BxGVOtEYspTlSzMTODZA ABFV6HDyUSQOFqQhTfwHBa CI2YSOZlisNcZXsfwEdkuN 3arWIlN9fjAzBcOzrgfOfa TmVzdERvYzEgDQpcbHRycG FyXGxpbjBccmluMFxzYjMw AVPwhIAQq9BoVYLXNxQwND NpbWVuIEMgaXMgcmVjZWl2 WNOteJ0mHx3zoMRviO2giV LzQXfhDTWdw2c8mPD7hGPx bVV7wLAkjXlmPoTuAI5zyH BoPGCFCT60iZNpeyAhHUNb rK5jWMOmPMHzIDB8vkruIL ZDBRN5rMJig4L1SAsjORY7 fB0qwUrzUbKhF4K2RTQfPZ Czd40fuTS5evGqPfWjTNCj dn9jkV5wIKheojXfcMkaiv Fsr4D2YAKgk8Y6AWRqvxZp xAErlHOyLEIaNzA4SSSjLf W2BJClAYMdoVSzIZMnHG0m VGhlIHNwZWNpbWVuIGlzIG MqmVOjidUiRPIvmw29E0dl RNQtbD9fy5xbHwJrOQApTB LjvJYbnKQ1RXTdoW9wsD40 fpSovgWXIR6wtJZvYE6OKU NiMFxlcGljWHNiMCANClxw DLCyNAxpb5YiIBjbzDhpQS UdSzDwOPyPtUgyBRDAU2fg aLJtLHfrWVNRBHkSH4FQOO 8NUMFfxFAQMMT1AM8cBPin JQMxP5HtR3MmfdI2v4kbeH kco8HemLNsBR4mzQBwRL0Y XHBhcmQgDQp9 Disclaimer (test code = [id number]) g6ezeJOxVXFkb2ohIKErlG FuZzEwMzNcZnRuYmpcdWMx EGuwvvQiZEzke6OoH4VoCs AwMFxhbnNpXGRlZmxhbmcx FFAcYHH2beVoVMEyKHxzQZ IrYOwbDt5cjRVlsPdlGjGo RCWar3otklWRBPxvCiHiR1 63NNKtWHvpo6tjb2MnWMYr hBNab9J0GKJKzlrwsDd9qQ kaM76mi4L2QrjoQ1veDGEv ZDSsH2MzDQ9fBZQzDwv0BE L1IGI9LJKkXHMzP6SkXC4t HSTyxQGcWMc4e5peaJbxKY HdRDV1r8vvAUhclrTwST5r wx3ndTu8b0iihsHwDAYeTO DcdUKDUCWkC1HnkObaTo3b gSb9fTmgTznuRQJ4Ppc1GU 7akt29lkz2nVrrCYXnkyge EvA9MBtmTDNturopIPg9ES qgZMBxbCE6GJJikHGyJ6Xx MKViUO8nxxy9RTN2EJsqRT TbBrP3XNGsqHIjOLJfyTtl MGbjk195EOX6XlXuAX5dJ0 Nlh4D4fV4dqXQoGUSdzTYk YcLrTSJxua0ukNGfAKlrt2 LiHHB0exT0hEWbdJKjSLSg LK17Duhzj3SfQloht3YmZ3 2qlDG1AAknu1moPO3cJjL8 lsFeMHwui8krmP1sTiU0KY psPQ0bKY4cJMNoeC4ozaxp XHBnYnJkcmhlYWRccGdicm RiTy6ivVfoRPY5KPqtI1ap sK1fTyK4CGnkE1bmsI9bRK o2MPmtrIE6KNYhkY1vGZ1c nroaz8lxOWchCWgvILFaaz I5otY4SMHrpQOpI9UfdA2c XJEkNG3tuwzae4qoZWX1SQ bwAZNxIIP6EpWvRTScx7Nr rmm3WzGco6YsaPMaGRpeV9 0pu875JFPjycToF7nyqMSv shmuuAObpbpqVWyfepP7MN QjlkExm1JgTMWkZWL9OSwc SPqcbQNiNRSwwEixv5jwJ5 RscGFyXHBsYWluXGYxXGZz MjBcbGFuZzEwMzNcaGljaF auSStuEsSiJOPwIFrdP8qp ZgOzC4WuHQDfXaLjnJKjO6 ggVGhpcyByZXBvcnQgbWF5 DVrjM5n5RDLqfzMecRm6yk VxGeVgQIMvMOA0ALblbMLg TMPrg1IzobrhrAWmHp6qhR PeXUEalO1dIOMqDBCfDNzt NW9byJw7YMQRqPMrmDLhVh JHRNHzPV34cmQjEOGDgpuv s9O6QVngKCJjo7IswYRiP9 qzd4UyNAVsm48fEZ3us9O2 w3mpSQG4UI4la8MlUWIxaD UisZJlGMSov4Uqwujlf1Go LDAjbcZba1RpBHTgsmWgbE VdMCWqfdQhsa9skkTiSNQk KPKvO2AwlgogrSbyvrWoTB Srpg5fzcNaITW5TWMPVHPg FGHzc8JdiI0aaAONGBX0hU Vhon5vcqOKlCSyNRSqvk36 ZKQkDY0kK5fsOUZzYXNurq LpxOGis0XmVIPgjWW0tJBn UR5WIfGSh58iJMTgXBFHse JnYYZvvEtsuNS3kvK5sK8w IChGREEpLlx+IFRoZSBGRE BgRT3izsYpc0CtiuSncVda HZUtgEPej6NyaUSor5IiiO bxd4OhgDZztZGpTB8rIXYo clxwYXIgVVRNQiBMYWJvcm R3g8DmJUAcZFDlLMU5dOhj hgk1SDFeqW7fACDlO3swbv vvWMseSSMbx0WkiA1yoQVB qBZdf4YqqEXioAYUxLRqBX 3xkyKpMSgHDIvHADX3quJx AUUca4TuKRcaC4gbN70kqG xvdGk7mWT6YIS6pG9zDkv+ IFxwYXJccGFyIEFwcHJvcH JnBUXpjJygyyXjH7IrghYg kB3zpARrosWhBC9pZS0bN5 E9hARnFKBjweSxr5uoBVzq dmUgYmVlbiByZXZpZXdlZC Tkx7LjFNonXTX8MZsxetGw bmNsdWRpbmcgSCZFLCBTcG YimUCkAYP7ZEvfqiFyinBe IN5glY6mdPiokY7ifBEbwO R2sjreJGNuLTEeiQpsGYMm WQ1lxUrldI1fTvJdPzIwFJ zbEY8wKZThL4oegAVjQAUi LDKiG1zuRxAohQ1rpNnnVF xjZjJcZnMyMFxwYXJccGFy XHBsYWluXGYxXGZzMjBcbG FuZzEwMzNcaGljaFxmMVxk PnSwFNFrCWybZ6mlMfPjQ8 WlLXIaLkEpoXJcV7oePHlq OXK0PEPeTH5jwMIpLJ45vY Ylw4gtQRmcnNwfpl6aE29b uXEgULawkTleHAScx92rg2 NfKHOiclGnxv7hELBfvwJ2 nY5pMBVseLjkWFSdnCNcOM Jud2IwQTaohQNwvwDdQSpr BVNsQBMicTJiqhK5otLtdw UvgvXhUAIgmJwxZPKoi4Fo ITQdMFdxv1Yvra8oxSJyPP FykvFYbSeueZLzvE0rV3Gg BRLzOUNjmo1mTRCmhX4nSX pve9DwefmvCQXyCTFuTWEg gfDpyy1lNLXyyUKYSG6HCL leeTBid4YzxdNqJ7lBWBY4 NUQwNjYwMjgxKSBleGNlcH CvHQUyue86ROSkcT2vjAqc WTAifK0enH7gySagiM8gKp EtOmXiRSwrTH3hMOQgC1nc rIOlTZRpVLBrX2opYuZxkI 9jaFxmMVxjZjJcZnMyMFxw YXJ9fQ== Embedded Images (test code = [id number]) [facility] [id number] 19:23:05* Test Item Value Reference Range Interpretation Comme nts Case Report (test code = [id number]) Surgical Pathology ?Case: [id number] ? Authorizing Provider: ?Dominic Keita MD ? [...] HPylori ? Final Diagnosis (test code = [id number]) s3jbxSSoWRNiv8pvNUZvtP FuZzEwMzNcZnRuYmpcdWMx HScwsiZuVGxmcSddNKS1MM VoME7dgEmzvWp5kKetHBTu luH7iOQwMOeif1hnARE8g5 wbaosmELKgGBsiQj0zaYPg mJzcOyMrVSIgELx0hO95ET HasQ2dsHXaYNh5OUGtfPKe vuHfDgFvHIJwiWUpqBM8QT YzBR8omnjmYPkbKWqxWFWk uwN2KVYdlUDlX0HyFLJjJU 9nlwweMCK7QTpoEDYtCHB7 CwQnHTDqb2Wkjvz7OsCayI FyZFxwbGFpblxmczIwXHBh xqXCNjYTUC2MBGXYRALNS0 jFOVLRRT9LGWGLGqlulSTv BIDwSJSpQLCECB1VTVIqD5 lNUjSqKI8TLLXdPIBpeTGw ONOadpELVvUUTA0JSN0HSV wgQklPUFNZOlxwYXIgICAg SBUfYXqHR0RAHTQnRRJFB3 BUORoRUStgEu6yDKKHFW1R D5iUO9GZDPGXZP9PBXyvTS HdLBAuYPKeNI0HYYhwLMID XY9DKEIUIJRLLQnOVEAEDS TGNHgBMGDEZ6OBCQeCTVLa xkprZTHgWg5nM8YEUUCYCS wgQklPUFNZOlxwYXIgICAg OSJkDTOCA6QSDvNOBV3XW9 4TQUSZJCKGYG9QSMPLDQbI HB9NDUTLTWAYKJYAD2DcxU FyICAgICAgLSBOTyBFVklE BA7DOIDOGrHEPTdTRXFrSK lTRUFTRVxwYXIgICAgICAt XH6YHQpaJWVJKH8KACXLNx dBTklTTVMgSURFTlRJRklF VFDSXFBGPL4BMy6YZMUURy xwYXJccGFyfXtccnRmMVxz i7BxI6QkFrXcKPaqwsYvNX QcLwxxjkblWHAgXTO5ogAa MGKyMTagNFBvRCjlIw7unG WunIfgTyRyYTBlv5vivfBH OBwvHfZsP228NYJcIQnuv8 qts5FoEFZccAAhk8E7VWDW dsiddOz5e7phBiIqVvO6aR DpJFdxU8aafyVpdZEdZ3Li aNAadUr9wUvxT57gu1J1Bo dlE7xsRAGqCBTyC4DzII7h HOSbZuh4RNL8RXI8AGNrEC MzM3BnWL7gBWIdjBEbPFh7 n0qntXgpIWTsOQM0w8nuUE tbqgG8TM4mql9oiNy9i0hn czEgRGVmYXVsdCBQYXJhZ3 TypOcjVy1cqJq4ePibPlcr OMY9Hai2NC9ymf48tau5iH lyOUHfkwgtJoI0ELtcHVVj evisCFu7RYllKVQimLB2HS XsaOKiO8FbOSOzDN8fvcf9 EFP5XTgqEULuTkU3UDElwM NcJFZczLswIZqjv778ROI0 GqHnYG4pB2Foz8C4nQ2yfK SyPAKfmYTsXgOwPUYnsm2y uSCbRTjhm1SeNRA1smB6qN TjlFWsWZHqQT38Rfnks7Wk QrxfVWY4AIDrmsYnr0Ajl3 fiBfNespCtP2vlL6MeLSAj OFDlTCOiAjOmmlMup9Ewq8 XqcCPfkTu6u0svPSEmJMIa mYjrh8dgRQC2IDJsP8I5kW Jhl5mhVBytHUSjmSP7szJ8 XTUiqVFjI0BlvE7oIVMfNH 8mfwt0u4inWDD3QWftCPCj MkV3nsP2EWAktAIlTRSmiP urBInac237UHF5AvWhDOCt b2WzC9JevNuvR01etHirV5 5aKSEqzXrnqV4pqWinkK6w ZjBcZnMyNFxxbFxwbGFpbl xmMVxmczIwXGxhbmcxMDMz OOfcT4jzJoDmWFGguDaeIV rzp0ClDSZoUUToDbwtwhRw XHBhciBJIGhhdmUgcGVyc2 9uYWxseSByZXZpZXdlZCBh oHpza6PmN2udCT3sU1DruG OcriAusiOcMCreVWFda8o3 sXYbbLadn6WdwUPeBL50ue PcFHIoZJB9BPDnq7cpDN49 eqgbPiFnwS40meUwskBpYY Nss5qrJ5zgvRLpz6Gmb0Eq niZyELwde0NhMY5twAJdax pxmKS7WWLysINsbuPydpQ3 oSqpACNzlF7nkM8utVdylC 6dAyBxIgAbBEjaLO9nDHNu W0fgbOErSAZdMZUlK9ypMp UavB1fuFnqXyibunH6PFCi cn19 Clinical Information (test code = [id number]) Shivani Schuler is a 47 year old female with IDA1. Gastric polyp x 6 r/o adenoma2.Duodenal Bx, r/o Celiac disease 3. Gastric Bx r/o HPylori Gross Description (test code = [id number]) m8xvbDIeWPRayNOTFRC7VJ CaTC9mnAdkdKv5fLtwDLOq izE3zTOcRGnfa9zjJDS4j8 elgvVKJtyjJKVxML8jLVnu ZNPkEQ7pPjEjGIZsCgSbML BhcGVydzEyMjQwXHBhcGVy cXF4IRYnQM2ymzotDOdqJO qpHWOiguN9CSUjmNXlY1So IPDkQD4roaqmEVS6LKPSSi ofYn1eqRKdhNvwEuCeHtOs YXJzZXQwXGZuaWwgQXJpYW d4dY9BRgdsKNN9HLFHCcxw TfqhaEiui3LegEVeDXByWK xcaWQgNTEwMDAgXFxkYiBP IlKqZdJ8Xyu7JZB7NiJ8YL c8MDEBPSOgPoncHPT6RhW5 JSe4TRHfEX5uWFrbhUZgQK elBvvnETggH350TDdnMUCr V7LhB9UsZBqlHrBvGKwpYH HlMXMiCIrrBHJkI6BGTILj KSV6BzXfZWKiUTt7WGowX6 GKYYBxMHPmJrP1WXBbGsY9 EVi3NVQXLd3lFDtiRyVsCX q3MTY4QSj3OuTwEBSvXeGx ABHrGAGzULqioOLvYW3wqL tnSDOdPP4BFLXhYXgtQSGb ZgFpJ4XGF5nZHD8jGJvkmJ JjaFxmczIyXHBhciANClxw ZMUjDD9BDAKxASnrWIp5me JcATUiMiPfOYNmL34gf5VJ q7GuAE1PDUa1tmJamvoneW 6pWYJkwpCsTOqZsGGmcL9o zoEYDNnhQPNjJ8YmvcBxCM yiTAFyma0ahVfpNLiaDkKu bGVkIHdpdGggdGhlIHBhdG kermTyH4N3mxNuXD7vWNKK ZXFifL6yXKAnJQRlo6JidC TruKbqZ0BulQCtDgJxe5x8 yCB0ZMLhaqDlNILqmMBmEP Luzr7fFTlbBkAkG2B1YXAu IASox84bdQC1faHsUdFtrR c7rTBqYCH6NK9uvLdyioAe g9r7rA2mORMtz4Q8EFWhj5 N3KTIbkpZpsBTryNGoJYHl KK3ltoWpZJ79UKYqMJwsFS bkELY5ACH0XAUpcCGsf1ce oyqgCy1tFXmvYC6eDYwxFA 39RNDxUEqwWMWzN9TiZ5L4 ONsfQDAyXCIdjQOrmQ9nur GvemMqlPt4UNKnFJX8uORf rKysXZFmQrtqrZO5SZIqRk RbaqLun3CrnUw0yUZmHKbz MVWlcN9piB2qARCqCBMmdy OTGbjlYAMeYHkan0YoHBej cGljWHNhMzAgDQpcZXBpY0 5vl3RYc3Skx8cpwLtgm3Ip jDZfBE3vdCBuKT8Zw1caOE QouOTfJAI1LLvln4odWQae KQK0PYQaJsNmEMSxYY1OFs QlMNmeIBk9OFjoDAo1WLr4 FA0WGxHhPIWgJvu1XzU0Nd ApDHw6IZrfUY3KCHR2AZIh NNLgRVolZLU9JPKpBSa6BX IgXFxzcyAzIFxcZmwgXFxu T91eyVGbABvnJdPeENqwrC wzRMSgIDY2JK7SZIBzAcZj R0XHA2aDZC3xWswienIpCQ FhzwVHIvzrBHOzJG4YVMJp QGmvRJx5htImMMPuDlUdJF KpL19vs4QTr4YqQT7XZPu5 iwVhboypyH5iUWQtvcGsq1 IzMFxlcGljWHNiMzAgDQpT jQRpvN2shaRKDNwjWKBuA7 DiwqBdRPrpTZRhng1shXye IGxhYmVsbGVkIHdpdGggdG wgHUBomVmglwMtU6R7sgKr VI7fOLNOYMJuhH4fUXFhMP VaBEPsNLAtxD8dUQI5s1Im dbJzRXDKIZLnrTpqWY81aV BjZWxpYWMgZGlzZWFzZSBh utFlovVju92mldAkg1HlSB 4jdYvbTLyFERalMrTjTB9m FJXevpLut3AaCC4yXZTvkX TuGXTqrzuvbYGmHYq9zEMm HJJaKnJraLxhq4PxAULcPV fnLP17xtVwOE5qQPajHR4f AHuqRQ2wJNTrLHBdITMxIj MchXSpMxAzwXQiTtGwH13w IiKMzVYqg9AgC7gmWB6nyE PmUuypbTGeSJWjoXcif3Ix kYSzZJWss5PqnEViUMftUR 3nKDY0Eb5hxQSlSFCojqF3 i6PqZWrtGUBlJvxiJAMzHB esg8XyGMVjaAZTw7GaYQ5M XHBhciANClxzYTMwXGVwaW NPz2DqMSHSByfisLqeJeHi nDGmMmK4JVXzcLCdXIE6XF 0tsBzcIAIsTKe3HBwaEPSr N1AiX8VhAQhsWvXaJOirWY RlOLOdRBizIIZdS2NZZXLo NET4EnGaQAVzSYl3GOvsK3 HOUNGpNRJaQzA9KQI8BuF5 SBv2COKITm2aUAfqFrFoVT AnVyJ9URv8PhIaXXAqVbKv LIIySRSjVErruOOzTX8srR wnSCVnMOUtFSJ4YDBvkNUK x5ScZAJbMShqVhDoXQAGHY ZZGS2CEuJNFVDxWxJdeOFb ZO2VTLYbajXkWYwpmWpgnE 9bxMYpM9okZyHbEuwolTdp TmVzdERvYzEgDQpcbHRycG FyXGxpbjBccmluMFxzYjMw LVGkgLFAf4QwSXNYRtEuPA NpbWVuIEMgaXMgcmVjZWl2 IHHinH4kZu0hsQGuoC5hhD RqOAvqHGTyl3f4fZW1hTJx uNA1aVQvqBmnEjSbSI1bcK AsYEWXJB72mCXkkeDvGDSo rF2oDLHgQLVrDIW3zbtsIF QKRAZ7bXFsq3B7MHxcUJO2 gE3dcGnvWzIgJ7T6JFSoUX Vgy59fcFO1aaCdBcWaOBDt yc6lgC5jVOusdxZddQwwsj Gbd9Z0UOLwc8S9EMZibpLo vBPjjGDtPKKtWdX8AWNzLv Z8TVZuOAHxtMVnXZQeDF3n VGhlIHNwZWNpbWVuIGlzIG GinFOlneTyZVFdgc87P9ez NFBssK1ek9drKvQgDWJeBM ZiyONucPY3BXLqxM7kjH70 whGtljMAUT2dsXQdDI7FYN NiMFxlcGljWHNiMCANClxw GLQzXRego3KzMBnqwMohVI TpLkJlRLbZaBqdAUIHD5po iBUoPQhsKEVKCDfET5NYSR 7WXSPomRWNNZE2TN2tCVbt IQViS4AlY4DlffA5e7miuD eaa3PcmQKiFU1pgALmQC3N XHBhcmQgDQp9 Disclaimer (test code = [id number]) d6enlHXsDMTyn8dsNIZijA FuZzEwMzNcZnRuYmpcdWMx WTbklzCaUXpju6KzF8CyBu AwMFxhbnNpXGRlZmxhbmcx KDBiWUL2frHaFUKzQJixFS JiYKziYc0cfXCsxTxfLcWy FJIlp5zpxzJJBRqfRkMlU1 99FCZoJOxww0qvt0LuMHAb rYXwu8J5KOVGnghhyPs5fZ gtB08vn2A9DospV2rwDCBo FORiN8PuMB0sLBQjAkd9ZM Q3EWO3IMBeMGSgJ0CoJF5b CNBgsRFrUNe4v2nwhLprFM BlBRW9b9qjSFafgtZwOU7m rv4tyVl5a0jzryRfOGAwWQ JpuCYBDOLhV4GvfTkjSm1k tBf9wLbiPhttWTK2Auk0YX 3mbc61ine9iWmnIZWnsxxv YoM0DMkaNINelheyMLe8OZ rkBIQguHV4ZJNnsTGlD6Nl WVLpDE6tsju5AKD8BWnkSO IiGoS6QVRbkQCrTGQyuCqw DHprm114YQD8OrCuJT6dN7 Lwo2G1lH2fiXDuKKNrpSIy FrNcQAGvnu5leCXcPClux9 PsYQZ8ihB0wNFcuAXuMGIp QV32Qxlfi4AfKpafi4MtX1 7egAU2MFigy3fpFS1lCrX3 gkLkBLrlv0ycgY8sFjY8MW rzTD8gSJ3rQCCvcM8jtlis XHBnYnJkcmhlYWRccGdicm KwEr4boHaaVJK8JTciE7jk iP0nViJ1MZnkT8wouL3bNP u9LSgnqLF8RNGeyE8dGD9t keegz3rcUMecAAhxUMScgx Y2zxY4NTNqaJHoC5VdgN2k TFAhIE2xsxaer4wjDMM6UO jmEDNgCFJ2VnNyXDUry4Ho eoy9SfZgo3IjmRUcLKnnR6 4gm204FJTynmPoK8mxiLDs cpjcrGTmzrvlMAmprbU9KH GuuqCbv4AtAMPuRKC7NNqt SPabnLAsOYXknEvuc2jkD2 RscGFyXHBsYWluXGYxXGZz MjBcbGFuZzEwMzNcaGljaF vbGHacIwRaFRCrGYoqH5vb WiIlY3UxWERfYiFclRSiZ5 ggVGhpcyByZXBvcnQgbWF5 SIbyK8s3EKRxvhPoaFx4rr RfBfHkNPGjNPJ8CRegcIXa GYHct0HyueuyjMOuLm8qvD SjOTAkoE7nVZIgRZRpQHfr CJ6leRm7GHGWeHStqPNsEw WAKINdLQ00lfWeHZEOlkon d2A8ZIfbCMSux3WwlOXmI3 cuq6HbMMRpd84hOA6vp7N9 e6ebTXI6LE9eq3PlZDRozP LlhOQhXBOjn2Ztoltrx7Jh ZDKeprWac7KcRCQqkoRquQ YlVOUofgGsqs1bomFcRXLq YYMfR4RbcufbkIzbhuIiES Ldqv7shgPsUTQ8ZZBGNOZf HHZai6WhwH6qtUJRAJY7uW Yedd0erwIIaPIgEQYhcd52 JUQbXJ6hK6geMVOfODPugf OveSMom2LrMYVqbPM0gMLe XB9CBtZQa30dTVZlYXZXqk NhUKCzxEkqqZX3pkD8uS2q IChGREEpLlx+IFRoZSBGRE DeHF4lksTod9KttfPraHvj PTWxsVGxh1PaxPFrc3JwxA frc1AmfLIzdNDaKT9dNMTp clxwYXIgVVRNQiBMYWJvcm H6m2NbPPGrXVNuVWS6mZlr yew4FDBkuP0yVRHeW1ddfm gkQDldYVJhc4RtbO8ywDKA oPUhz5TvhARehVNBnOGmGS 0corDaHByXTVeLQAG1suFd KZZtl2DhHOkrF8lhK27xdY llbOp0cLM9JYO8tY1mHxi+ IFxwYXJccGFyIEFwcHJvcH XkUDAopTjqdsJiH7GcyhOv xT5jxZOnhjOdWI1xGS4aW8 N2zVLlUZCfddYlt4scVEjh dmUgYmVlbiByZXZpZXdlZC Zct5GfEWhhFNG0LHxfaaHr bmNsdWRpbmcgSCZFLCBTcG PooWEuDOA5OGpgeoLjqvSh IQ7kwZ1dwCbtsO4vsQTonO E1jhgkHDZkKKJxaLprWFOe KZ1heMxsyV0iBmCpImLlQX dyKB2bWZBpL6yuxIGnTLNn DBWoO9fhNmWxiH5bbIokNW xjZjJcZnMyMFxwYXJccGFy XHBsYWluXGYxXGZzMjBcbG FuZzEwMzNcaGljaFxmMVxk XiOiKOFvLBlxQ4zsPzKjA7 SrUIXeRyDshGDxE6ruSTed EYI9BLQnTE7wwILhNC49wZ Fqi9mtLXtowResew4aL21z uXDhOLviwQndNJUvk05od3 ZzRPIgyoDgpe4dZLFjxnX9 fS7zCYZhwOryHUIjdAXfGW Tuh9CjXErvaIVdxcHyQLnx HLXzGYMzzOCblhA1eqLtuq VyclPuDBHasEcdVYSta1Ld LWNlGWtck9Yrzf3ikZCfID NsbrLMoWqrqFYniA0yV0Fq JZPwXLHlup0xBFNwwM9mTA vge5LdxsugZSJdQQCiWHUu vvQgvg5yRWJfmPTMFK5RLI hskZGtm2UbtnZaE3ePBKC5 NUQwNjYwMjgxKSBleGNlcH UmAYAtsu51HNRmeV4vuAfd TSSudP1wtN7brMpefB4kHf QyXbHkMDgbZB6lIVTtQ7xz rMBmLKSfASWvK6vaSkDkgS 9jaFxmMVxjZjJcZnMyMFxw YXJ9fQ== Embedded Images (test code = [id number]) [facility] [id number] 19:23:05* Test Item Value Reference Range Interpretation Comme nts Case Report (test code = [id number]) Surgical Pathology ?Case: [id number] ? Authorizing Provider: ?Dominic Keita MD ? [...] HPylori ? Final Diagnosis (test code = [id number]) a7uehEUhTFWec8xbLGTzeC FuZzEwMzNcZnRuYmpcdWMx HHsuglHoUXjdmJwgHVF4HZ FyMB4xvKvilJc3oZflOVFb edK2hBWpWStbp2pwBYI4d8 fxtzzqGYUgXUssDf0bkYBz rUqzCqNtZKZyGJu7aX03KU UezG5wbQSmBDe3EEIuqHBl yiQgHoAgDAHxrRGuqLB0LZ LqOC3ofumyGIswCYxyGWMd vdV5UWFbdRThC7GhXZMcFG 7nohcmURD8QZstJBUnXGF1 PpMbFKKrq1Vgtvy0BgMbyG FyZFxwbGFpblxmczIwXHBh qiDKFxEFHR3LOMIESBBVX7 nSLWEMAV6HMRVVAnexxYWi OOZeQXEfXDPJON1ABBKyR4 fRVjZuAL3CFKWgPLBgsAFb BNXugwFHWqRNCF6FJR8III wgQklPUFNZOlxwYXIgICAg OZBbTWlQE2YFPNHoFWAVH6 VAROeXWWjxMr6yFDXMCE5K I0qAI2VJTIYECH2PGMugVN EfJNNxJWBuFY6BECfxBEYY AV0LHLZIMUYGGPrNMSKBFA NJFMpCRQVIP8ATYThVBMAa gfplAQBzTd8jJ9JCOSXJMC wgQklPUFNZOlxwYXIgICAg QHBcEWLKH0TGWmEBOX7XB0 3XARMTZEXXXJ6VCUXTGCyL OX2OOMCTTLIUUVBBC3KsuL FyICAgICAgLSBOTyBFVklE UG5JILJIHiIWOUcSVCPbUX lTRUFTRVxwYXIgICAgICAt XZ6ZFDakGTRJYI5JVSAWBp dBTklTTVMgSURFTlRJRklF ZFAGCPKZCT1EYm8NWCLZHk xwYXJccGFyfXtccnRmMVxz q1AsW5EwXvNaYEttumRnLF DyDpnmoaiyDGEkFPK1stMp EMYeWKqaWQKyOXybJf4cqY SidLyiHiBoZFKsu4luvoUC HRrcUeEiO476JOViTQrxx1 veg0CtZRMwpXGtt3W4UWKR xvxqpJm9m8osPrXiNaT8uW KbGKnoR5thalDkaZPzE6Ii gTBxjRu6wTnkI43zs5Z8Wi pvN1hvZFAcIWWiM3NmXG9w UBKxSnr1PCD4KWT8UXDbLG GkX2UfUS7fLUExkBAuCXi1 o5ppcWrmEXPxDPR2t7geUX mntmX2PU4hcr0uaOh6l0kh czEgRGVmYXVsdCBQYXJhZ3 EmqQpmLd0tgLx5aNhjKerf QTH4Git9AM7gah49wsl5vG rgPTSlkryrVyF4MLogBKCs jmshOIa1ZYbaUTKqcFH4NI BgsTKeL2MpZYNpGB2fwqg8 DEH6XLppYILwJiR4FAQidW CwPURdgSrqMYurc517UBA9 YoQjVS9jU1Jcq7A4qA2ooY PxMVVgoWWwAeMkOFAgba7t mTTkHRvub7PkMCB1pcQ8iX EzrMHlDDBzIZ95Dwbfe0Ab PwofRQM7KRAoxlFfb5Egz0 ykXpBdweJeE4viN5BpVOFs BWFwIEXxFxReuxCxi6Gnj0 UdiRYnfRw6n6wdQLYkCSPi lMwej2awXYB1PBIxQ9U7jB Mpt4neIHrgRHEeoBQ6auE2 GPFnxFPnW0BrkX8dRIAoNG 3sazp2r1gbTMG0OEbsURUr IlU3cvY5SFFuoVTpILShiH pkAQuoe558HQY3XoFoSPXk t9XfI8EqoUxzR37ujWkfC2 3xOLBqjQsmfA1oaXvvwZ2v ZjBcZnMyNFxxbFxwbGFpbl xmMVxmczIwXGxhbmcxMDMz LBvzW9wjAvAuEVNjnQftAQ lem3WwLNKeNNInAtkjziXj XHBhciBJIGhhdmUgcGVyc2 9uYWxseSByZXZpZXdlZCBh wNcrm7SlC4sxPE5sK1PxlJ BuztYexsLmFVooYDXtl8g6 fOQhcQgou9LdbWGbJT67vb YhCTTtRPL3ZTRib6cbMF52 zahgVuFrbR74aaCbbjBoTJ Kcu3ynB3vkgJEhp4Bet0Gx enNnCZecd8BsKH1geAQzgk dpmMM1MEUmlGXgkmAjfeY6 tJuiNVFgoJ5zlS3veEahpY 8lFvIeJzHsJOkzBL9vOBCt N4yvnDOhMMEcDCRsK0ttJm ZmoH4qoGlzIgflkkM4YTBv cn19 Clinical Information (test code = [id number]) Shivani Schuler is a 47 year old female with IDA1. Gastric polyp x 6 r/o adenoma2.Duodenal Bx, r/o Celiac disease 3. Gastric Bx r/o HPylori Gross Description (test code = [id number]) t8lzvGTgWGXhmSUMIWZ0YR HrYH5xnDyyzCw6jZfcPXBh moO1vTBpOIqck7vnEYN6x4 ywmiEPTvfiCRFoAQ0sVOew RAIgSL5uXqFrSHZsMgKfBM BhcGVydzEyMjQwXHBhcGVy oSL4KZHlCI7zszolXTopPT ujVSUsifY5FDLixFUkO4Vq ATCuCO3egvjgTRE9ONJLMj peMh8mwQNreGcmEwUeJzYv YXJzZXQwXGZuaWwgQXJpYW a9rU0ERkwqEQA2PWXFFuye OyrycYssg1SjnRVeYJBaYD xcaWQgNTEwMDAgXFxkYiBP XcWnDwR9Qod2BFA1MnR8DQ x4HAIPGCHrUvylCSN8FuC4 ZEl8OVLtCG1cCNujfOAoCX cpDmejQJrtD291XPfuBDGe L2TzG6QdCTwtWjPcBJkhXB QuXECuDVzaKEWtW2GPUKBi HAA2ObZmKHBdWVx8ACoqY6 KBHHVnRHBwStX3WMIcTtA6 PPx6KRFWWh6lDSewXgBgKC b1ZKZ7XTi9BuXsQUOeAeHp SRJrYFIvUFyqiMChOZ2viI lsPTCiVH7LGMOlNHlxOVHx QzKfZ7ZOQ4xSZB8iBNneyZ JjaFxmczIyXHBhciANClxw WPKrSK3NGHXyUWmbPAf0ib GkMSEsVbArKSOfR76bq4LH i7ZqYC8CHQr2hhRhcueosK 3oPCJtysKnXOsTwSJaeS8d dyVBDYojTZCdW3StznWxCR urLDGqaw2naXncFTkoKjUc bGVkIHdpdGggdGhlIHBhdG xtpsHsM7Z2jqSxQV8vVYMX UMMwaZ0uBWWrSGOca9RueL TemEqyU6ButVQdFuFcn5y2 nHR3YQWycwArIHFspEZeID Dalb1hDZapKoHfG0G3GZIl OJHcj96ksUC1ksYhZqVsgI x4bEQdRBM5MQ1saPzlsdWe c2j6kI4lZRUbf9K0QHYky5 J2OPVpepRnvOZfzEXcECYe FX7lskSsSB27KNSbRLafLN foXGM5TWW4RUGtyRYtj3eb ioscFs2kUBmwMR9uEInwFU 68NHCiLNygOBFeY2VrO4S0 ICztJNZlEHNxzTDxsB8skx NzbtTnhDd5OGZbTIT3bULz sNltHJKxTykwtOZ6NQOqUy GapzSsk2ZxzEg6dIOjVGpz TLVywN3xlK4pAJJhKUBvly DNSpvyCZKcBPohr7CwLXcb cGljWHNhMzAgDQpcZXBpY0 1ml8PKv1Iqd5vxoXfak6Hr bZOfIO4rcGBqIQ5Fb0miXH FwsNDrSUJ9NZkqj7knQJsr RJQ1JYRxJoGuIXQoNL0BWy ZaZWggCTr2FCzhJFd5CWv3 VR9DDdKjCJBhNjb1SiD2Mc KmALr8FKahPV0UVDK7NYZx SPWjPJfpKRQ1GZKtHRe9AR IgXFxzcyAzIFxcZmwgXFxu S80dkSDbCMysGsLsGDvpmP saCKGeJXJ9CA1MAZEcDeEt F9AJM6bWWU3uLmnherXpEX KvocKSZofnQLAtQS0RCRQm LYvzTZv8txWbMSRuEbTmMD ErD84tk6PYg1CmFC0CSIo9 jdCsbclpmM2pGSHajvAhv4 IzMFxlcGljWHNiMzAgDQpT qMBcdP0lrxBOEOouLVRoG9 QnitUsNEciIGVqlr4byIiq IGxhYmVsbGVkIHdpdGggdG pwWWEooDlxlkAjK0I3keSh OG7gXEGHZIVgaR7yRIZqMR OrYAKsJCTcaY1bDZI8u0Rb asVjWRHEPPVraAqsQU59kV BjZWxpYWMgZGlzZWFzZSBh meOztjHgn55jysGlm2NlTI 2ifNlqZObVEShhXqAcPS6b ZIRfixYka8WpEK1nTBTzbI AjCCFmvjwnwYDfQLr0vBSc KBNuTmVcxQlir9EmSBTrDC nrDS91wmBjLI3sZEcmDI1h YYhnAI5jUPLlPUVjHVYiLl TtdSTiKjFsoWAsVtZsR84y EmXFuAJcw7GoC1usYN6ioG XvSlhkdHXwUSQfiVued9Dz rSCtUXYid0FmsJYjNZzrMQ 7gUTQ6Ac6ulYMjLAKubnZ9 t1DdVOkaZSCzGhamKEHjPL egp0RrJCSzoQUHh4JtHJ4L XHBhciANClxzYTMwXGVwaW WVv7UoNONSRwdrhAfrXfBl fNCxYcI5LHIlpMWtWAT5ZH 1nbHzyVLUcKCx3WFicAUVg T6VwX2MpLSrpBgJwRQdiNS GfYCOaZFecJJVpL9NUIVLr KIZ0UaFvZWLjYLk1VGrmM8 WAVAOdBWTvHsZ1RIJ3KkR7 WRr1KUIIRz1wGVwkGpYiVU UgPgI0FSc7XoMuENWjZcXv XNFpFKYaWFhmbYBvZL8yiD goZLExQVRfTTZ9YHRfqOOM l3SwEAIaITpqQgNlCDLSPN WSYE5EIjTADMJpMiFehWAo NP8QNABhclEpQPjyxHnlhI 6frPObE6sjUwCcHaoupMwh TmVzdERvYzEgDQpcbHRycG FyXGxpbjBccmluMFxzYjMw XZAnqWKFz8BhOCZLFdSdOD NpbWVuIEMgaXMgcmVjZWl2 BLHiuY3qUw6mlXMcoU4xtE UhEOfrLTQou5n3eAR2qLCn mCC8sRGqyUiaHhJiMH3wcQ XuWFCLUG73xCEjxbYbIFVp eQ2bJBVtEOSwKCL6arqoPC CXMCT3bJDmc6J3QVsxWTW0 gH5kkGqdCxMpI2K8HVJlJC Lhv30scSD6vmCdLnVrMMVa nd2zdP6eJIdmirFxcIfuwh Slt0W2ZWFtc9I9MUPssvTx kKUswVMpLRToYvO7DMHhRf D0MEXhAZWytAXfGKHbFS0v VGhlIHNwZWNpbWVuIGlzIG GoiCIoskQeKBCcfr34E8er JBSxyV1is5sdGyPoOCMxCO AeoOHplWM9HZJweU1iaR09 dxEzawWEJF8xuHYxZR8KFH NiMFxlcGljWHNiMCANClxw FMVlZYnou3WsQKxudWftZT UxBrDjNYsPsZwmRHVTT5lz rCAlVBzpEVNOOOhKL1YVMM 2FBGVwpBSZFOB9KT2nQMum HGPqK7GzR7KvwtQ3u6xkqE mrn9GacXDkCK8saTScOS1K XHBhcmQgDQp9 Disclaimer (test code = [id number]) k6glvAKwDZVyu8haQBXkvW FuZzEwMzNcZnRuYmpcdWMx YXljnpFuRTbkb1PlL3CgHr AwMFxhbnNpXGRlZmxhbmcx TCGuYQH9wdMiDBEpKBzfOZ NqLTlzOh2abLGgdIdeWwHz VVRgg2ocagZGNVdgDdVlV7 33FRErHDsnp1kqy6GsJZOc pWPjy4Q3JCTNmbkjmXg8oS yxZ84qr1H5DzbbH4zyTPOn SZYjD2RbGE6wTLMjImz5ND Y3BSE5AUIqNFLwI5LgYI1r WDAemQUeEEa3e2zrjFufZR GmSFF8l6byPYsnzeObPH4r np3dmDp6h1fakfFxDWTyGC ExdEYYXUDyP3XhoUltWj8s rZv9fMobNkdcUVZ0Law0FP 8cjv62gtr9sLlpYXPusvhe YaT4ZYpjSAZvwitdELj2RC thBUGvtCF8WKAjsRSdO6Al BCNeIS2inpx0KTI4ZZxhNA RrEuY4JCHfuHEpAPYcmWiw HVvke508QYG9ViLlKK2tB5 Uzb7Y4kZ4qrHDlUPRdxTOa JqVpSEFugr1uxZDhNAsyu7 IqRBQ6hbK4tDQjfMEwHFSm EB68Sbepc3LgWmauo3JcL2 8ycNU0DQxyv6rbUH2cRdC0 opHwQTset7avmH8gDvE5LZ dkKE9kAF5bULRiuP8gnhna XHBnYnJkcmhlYWRccGdicm IeJl2zhKqnVJA2ZSzvH7ey fA7nWxQ3TQpxD7sboN4sAM y1RJfnkQX8JQMsnP0vFE1j szuib9cxTDhvVDzvKIZoag H7qmT9XUDfvPErV4CnrQ7b EQQdJJ0fozpng5wsSXN2KE jgJKGoIES3ZcPqGYFee2Ya xee2RzMnh5UagGUrELewP8 2dt461TADiaqXrT9xngIBk hyywvBLejqxtBUheurS4ZD GeywSqc1OsVUNjAPW9DCrs CBxlpTPeXMWtjLkzd4uqO1 RscGFyXHBsYWluXGYxXGZz MjBcbGFuZzEwMzNcaGljaF mfRDekJwJaFIAaQFbmE4qo VpZmJ7AdFYNzUfAkcHCxJ8 ggVGhpcyByZXBvcnQgbWF5 SOgbK9a4WNRniiMooIr8fq CaHbMlKALzHHN8LLrecNEm WGMjr1IekudkcUIvYo7qlG DqLHIlrF9rBICoGWHdSIei CT4msOi1TVKNrXUhbGRqUa FQAWRhDP22rdWsANRBvrui i6Z3PGadOMVea7VpbGOuR0 bot4QySDLnr38wFO7sk1W9 l3jbQXC3AV1hm4ScYVDtsQ AzrRBnLDQhp7Jidjium9Bc UINhqiUqz2GdWCDpkhXdnD JeAOXaxdEmch6pztOgWTNx ASLkB2SusedqgQuyhjPgZD Waju1nymPuENZ2HRFEGWCl XSXhr2RoyS9cqUXMLRS7xP Cpop1ddnZHxMYgTZIadv68 MWZnYS0qY9xuSXZjHZBevt SyiDHlh0XrQNRozJJ5jQEk NQ6KZkFUu31oFXUbAHVFrn QbULGrjXfsxGE5hiA1aQ9e IChGREEpLlx+IFRoZSBGRE NgKO3mmpEgn5NiurQqhPnq KXXysVWir3VtaDNlt2ZsoZ pei4ZhqYUmeFAcRS4wTKPf clxwYXIgVVRNQiBMYWJvcm K2b9DgTNYuJFSoRAV3sKdf vey5OLCtsT1hOOVaN2nzuk yaBJkmVJNxt5NavL2esGPZ cYTpn3TlkHNyiXEKlFMqVM 7exvRsBEiTFGjKJPQ7weYa MQMcj6AnPCqfO5lcP98moZ tngMg8nPP5QKJ2gP8xAex+ IFxwYXJccGFyIEFwcHJvcH CwKUQrfGhkcfBfA9ZinzBy kF9mgKRnwyEjHZ0kUS0qR4 J4cCEdULNzdlTwl1czCGmo dmUgYmVlbiByZXZpZXdlZC Rvs2OgWLxmLCI6KHatomWc bmNsdWRpbmcgSCZFLCBTcG QsrIPrOLY2YEzdozLugzEu VP2viU6xsMftfE9xaLDpkO O5lihrDKGcEMRddMvzNDCe UP9qsKqkoH6wMjVoCfBpIA ecCT3gRXFbR2tqmDVoUMLz OMHwC2gjCaIpwZ4caMiwOK xjZjJcZnMyMFxwYXJccGFy XHBsYWluXGYxXGZzMjBcbG FuZzEwMzNcaGljaFxmMVxk IlCnZITaCZtaR5weWuRkP0 AdOMEhBsPkeSAqW2mxNKge XZN1CADoAT7jwVDaJZ65rD Rhw8uzKQehaQlpki4qD23v eSXdHCxgyGujWHXdn24gl1 PdLEDmerKhju4fEPTnrjB3 lC0nZEHcmGlkROXcaXIhZF Ygz2JwMMumkYWcpuMhLTlw VLZrIQUsbPCwngH2vnCreo IutdFaNCLryErcATQdc7At XTTpMQzsj6Tjbk9mdMBuUB FragQGuMkcnYQpuX7dE8Nm QVJbHXKpdf8pFUKbhJ2zNS bfq2DnqjnhCMGfILPyHYMn jiIacn6zCOWlnRTILR6XTF vmvSZwc0KizqMvN0xVCRT9 NUQwNjYwMjgxKSBleGNlcH NgCYElsa55FEDgoO6tkHoy JEQedM3pmK1pmIasoV8rQl KrWmQkWHzvWJ1nGDUsC9qp dOFtRGAfAMJvG3ovUxGltX 9jaFxmMVxjZjJcZnMyMFxw YXJ9fQ== Embedded Images (test code = [id number]) [facility] [id number] 19:23:05* Test Item Value Reference Range Interpretation Comme nts Case Report (test code = [id number]) Surgical Pathology ?Case: [id number] ? Authorizing Provider: ?Dominic Keita MD ? [...] HPylori ? Final Diagnosis (test code = [id number]) c6qytNDlDSFhn7ucTGXkpD FuZzEwMzNcZnRuYmpcdWMx ORphreKwPNwdhNkvHDA1CA JqQL2gjPiivMk0vNxuYDYf uxK3gBHkTDuko2wnSGB0t7 slsnilYGYqNQfqSa8jjHNb uWxrWjUrZPCeKVg9dI58PR TpkJ3dxXCiGCq1UXNbjQCl reMlQqEdTCLdaLLnoSP4PW RbGR2ldgrbZXtrPBdxUEYz zgB3UAFbgLHtQ3YmEDIsYD 5rcebySRM8RYwvAZUwIII9 CqXkAOAre4Ggtgp1OzFkaO FyZFxwbGFpblxmczIwXHBh bmOKWzILON8OCMQFAOYWF2 dYEHAJUH7OXBIDWfpdlCAy HYKwDGXaDKMDYQ0ASIPpD8 vCQnCtTU9MPVKkLLKjfDXv RMMinnPWSuRFBW0IEK7IGC wgQklPUFNZOlxwYXIgICAg KYUoKWaFZ4XRYLVuOFRYK7 UCOFfYLXirLx9oRHENBT0F E2vQP5IXCUZJNO6VDPyjYG RpHSAqHXUcKQ2QJAcwCUSE SC5IXKSLKBTRGMoNOPOWBJ YWLRgORJBBO1RHSYuXMFIi rlgjSVWhEs2rH3QFRDAQWU wgQklPUFNZOlxwYXIgICAg LMQhUHZNQ8GCRgPOGS5BT6 1IPHZRTUDGWH3SBCOPXKyQ EH8TKLZBVHBIRUKZG1WsyG FyICAgICAgLSBOTyBFVklE RC5GATPMCmTKNHxISBGkSE lTRUFTRVxwYXIgICAgICAt XY4ZTKnvVEMZIL9HHXBAKe dBTklTTVMgSURFTlRJRklF IRBUSOUCRS4XMh1QMQVCBj xwYXJccGFyfXtccnRmMVxz r6HyH6CdQgElEZkajtZcUG AgQcnhgboqQGNmIOA0bkYe VBOrDClhRJHzZXoiZc1stV EivOktGlMjWKMvc0mkahNX PCelTeFuT219DKPxQBxdf9 zxt1IwLGRfoUZfk3L0OFRS zwxejQr4v9ucNcRfUqZ5wA JmREwpL2mickSwnULaW4So wMKfwUv1rRsfS75wl0A9Sz qsZ6rsRRSaSPLlZ0PyVR1d ZSEcGen1RHZ6UPF9ADJxRJ QuM2EdHE2jPMIwyKXwRSz7 a6pfaBpxVHWtSMV5g3gdKR kqmtP1ZQ0jxa6hiDx6q2ss czEgRGVmYXVsdCBQYXJhZ3 CgqNvbLv3xxBr1rUaaIswo DSW9Xnw2SE8onn50zfj5gY hjYBKyrssbGhS1VBuwVZMj mvctJXj9SFtxINWghGY8CJ QnmKYmI7RdIQEkBM5ynqm0 RNA0STvoADEiFtQ1ZXNpoG NkHJLihCxjONyol418GIP9 TtHuLC4wN8Cog3V4sZ6euM TuTGBuvLWtYgJeSEGqix1b yUUwWRgky8IeKJH5xxY2nE MiwPRvCBHgWL26Xtrzi7Kq LpgiAXV4LZXlxdQez3Eky4 woZcAdtyMrC2kcV5OlUIRm SNLgVHFiZeAbhzGpb2Dgd7 PdvWWwpAp7m1ueLKXzKUOp bNtiy5xyVVU4VMZbW7N5yM Icw7piXKokDELzuQG1hrC8 YNXhrQHcS9CctL4sKAYvOB 8qgjv7t2etXJP0OQjjIZRp BpL0qgT6BNLieQCnBOUezD jpODfxu681FAR6JpByFTSy w8PqE5FsuRikS96tcRfoW7 9aVEKhdOpuyI1scMgvwP7p ZjBcZnMyNFxxbFxwbGFpbl xmMVxmczIwXGxhbmcxMDMz OTupF6ifPpOqYNLtqFwzAP xie8CxOUMeKSPqAayhpxAv XHBhciBJIGhhdmUgcGVyc2 9uYWxseSByZXZpZXdlZCBh xNles3VtR8fvLR6iV3JrhB VwfaIipvXtYUexLZByw3e9 fYIldGlkl6KgyENlWI12jv AzWOUcRDO6RMYek9ufPR12 yzboUkKlnJ94ypBvbrTlZV Lyk4tkB9iubVWpq6Ywu6Bl feSjDHuxb6MfHI0vuUAjih kosHB4CHSkfHOiugZknuD3 vKqxRHRikE3erA4fsMwkpI 3qIdXhIgRzJAsvJI5yZUSu Y2mkaQLfXTEqBMKqN1btLn HvgF5zeHrkBrljraP2ZNRh cn19 Clinical Information (test code = [id number]) Shiavni Schuler is a 47 year old female with IDA1. Gastric polyp x 6 r/o adenoma2.Duodenal Bx, r/o Celiac disease 3. Gastric Bx r/o HPylori Gross Description (test code = [id number]) z0simZLjFKCxjJLWZGM1QU GgFI1pnMhxxOv1yQmiHHHd zwW3iBKuDFavm3ccUKB5b5 xcqjUCEumuSDSeSW3cVZpw BDOpCW6kUhCzEJOyAjMfPU BhcGVydzEyMjQwXHBhcGVy rTW7PSVhRE8wqqlyOOkyTB zvJNYppjQ0DXMlxFOaL6Ve NWLfRO3ytuvuCZU2IMCORw xzOn6spCVbfUatRcAwApQl YXJzZXQwXGZuaWwgQXJpYW m6cD9JYyiyXBQ3YBBWInvb ZuqclDlno7LljJWcFTJhLZ xcaWQgNTEwMDAgXFxkYiBP CzJvQnZ9Cff6BUJ3KrH3FT p4XORKYWLoOjcdQSI2OpE9 BTd3ZSAuDC8tUWihiKJxAI stWstlNJjvR712JClnSGOs U0CiY4ZvDIdpXpNsNSkdFM WzSPQfSLgaVJFvW4XPVBPz VBQ3ZiWeMYGgQTb7ABtmE7 YQYRFyXOJuWcZ9HOCpBnE4 NFr9VZMANo6xWUriImGpLQ u0XIA5KVq0GvShAGZwNaKk SMDySANuWSsovCCfFP9gbW qgVUJsMC7NIEVoKFjqKBWs JpObD3AWX8tAKL1rNPlwzM JjaFxmczIyXHBhciANClxw UDPyOE4DZRQoNTrgCJa5qe BiXWNjXaRsWGEaF92is1XA s8DpXG8SYBo4itFzvnvkyD 3hCGAjcrRxEXcYpYSqtW3k ksCUSCnwCDIvM6StfaFsMX upMETqri6dzXsaDNqfGtBu bGVkIHdpdGggdGhlIHBhdG oomwVrG7X9evGzSW6gBRIP YRWcrH7uZLDnZPCvg6FkcJ RhpVcvX0UxoAReEsUvn0c7 eAL9DPOfrkXxVBIcjBTzRY Pozl8vOFonCtSaR9I9DRJi OTBiu43kjNQ1ldMdHhDfiL p5gPYhNFI3FD2phFueebXt g2l3yU3vKSYip3L2JQWtc7 U0JLWwqzEnyAEawWVhITKp IQ4dvsQuDM11SFPgNYmgNE ceFWT7FEU5MWTylOPbu0qu zcabJw1pSTseFS8fRLaoPC 49LGJvFFjfULNkY7WfA9T2 ZIwvUMLzVYHfqFXbwF8ycy TozlAsiJl7SYMzYKB3hYId fCetDUBpJjflyTC5UFTaUl SkoxYbx6CyiKi8zBWxDWrf TSOswP8trE3vLTWzXHBeeg VTIfhnGQDhNDdsz9PlARou cGljWHNhMzAgDQpcZXBpY0 2hu4CXj2Trq1eqpHbus1Rm oQHyAR1hxLRiQW2Zp9gtCO DanENkOZD7VScwn9adBLbl NWT7YXNbNoJsHQElTM8LRp EqGSoyGTm7FEbdNRl1CNy2 WN8NJaIhKQAyBdu5GzH4Yb LtOXv8HRisAF8OSAD9PLGm YHTgBOswCOE1LXMmXQy0UW IgXFxzcyAzIFxcZmwgXFxu E10lqXBcWHffSvGhBMlvmB ldKNZrFEH1QC3CXFAuMwIq H6LLI3kAQV7oPmqqtzTkUQ VwimLLKepjBSFpLP7YTTAb MKwgFCk5phLwCMRsCbDlQJ OiD53fm0NRv6QpIS5UNTy0 jlOcvnpqzE2iBKRrplZcn7 IzMFxlcGljWHNiMzAgDQpT fHTfpI2khpSNCLuvUCPvB2 TbbpYcWTxbJGPqdv0ejVpk IGxhYmVsbGVkIHdpdGggdG vqMWAfgMtzoeWjM2F8iiWp KH6uEOQZHONypO6oIPQdIK KkWWScPGMhzD2fPKB0q2Qa mqAwRFWWIOEvnUmtWI20eE BjZWxpYWMgZGlzZWFzZSBh cgRhkvYrn83fhdMhl7AsUE 3ylYsgJMxPGUtmIvHrRQ2u ZEXhlaVjd2YqHH0mIATfxJ VqCXZdfktmgQHaSOh6sHHt YKCuKmMcePsht7InQFHkZA wsNC17cjDeLX2tPLcqJE5l YBwcUY7zLDFqWHFwYSNtRl CvqZWnOdQpqRWaMoHtQ92b GhWFdIKgi7VcQ6vkZK5hbJ VpFxfwuPVdVYQgcApak3Sx aHRmFHKpa1MsmFRlMGwmZG 6wQDP8Ep0tcIDgTRYoldV1 d2ThGHpvPQVrFqobPMHmNF jtq1RaIBXrbGZHe9PyVA6Z XHBhciANClxzYTMwXGVwaW LHj0SzZYIGPmirpObaCzAr jOCrWaZ5GVVsgIVsVLC6UZ 9mdGdtBNUsTVg2SLfiZAPf Y3EjD8FpTSenJrEvFJboQY ZaYANsSUyrJBWjW2OSUQQo RXQ0AcFjKAAdIZl8FIkgJ4 PUPJWqJSJuEyC0WOO8FrU4 FTv7BMVDUo0hDEltQlOoYM NmQdM5FMz1MiOtBOSlGiDa EVZvNSLmNRrmzARwZX0sxB naPQRoUMRxVUV4BZQimWUN j1MeQFSrLXbgUcHkMBWVKP POOH0SOcZLIYMmZtVvwTAf ON9JMJFndhCsOSzwrGllaH 7inIIcK8mbSpPdKxuwzOis TmVzdERvYzEgDQpcbHRycG FyXGxpbjBccmluMFxzYjMw VRWzrEBKe5OjWSBZEoAzMO NpbWVuIEMgaXMgcmVjZWl2 PAPphU8eHy3mtRShcN6ouQ ZeHYvwWPUxs1j7oPM6tHCl kDS4fVRxoXczTnUcRC8elR KoMUCWCV98uPWkkfOgQBTf nU4jMWMvCYXjIQQ7ichbIJ PRBPQ6vHRin8T8XHxuQGU3 eD8yoKvrDcKsM3O9GQYgAA Zxa97sjLJ8yrWsTtCmQXFw cg9hdA2nOIigciSpmQkttt Iht4K2GDQjl9G4GTHwgxZr xPMwvQDrFFFzWxO9SEMjMp U3ZOWrEXEvnOVkBHRqAY5r VGhlIHNwZWNpbWVuIGlzIG BrxSJdvmTzXNKgvy80W6js DOEjlE2yp9hfSzGvMOArER RrtVKvsVQ8DHIveH3koW28 wmCmpuPFPE8blNWpDY8TIZ NiMFxlcGljWHNiMCANClxw CVGhAJicj4DfXPhbtVqrAD ZkFrHgOFcIzMyxBDLLY6ni kTByBGrsKJZJRKyTF9BWTQ 6MUCSftROVWYV0GV6qBPrp NRLwU9SzD5KulgL9u0ciiH quu2YzdOVzRT5toQYuRK7X XHBhcmQgDQp9 Disclaimer (test code = [id number]) m6blzUEmRLEis3lsUUAuiS FuZzEwMzNcZnRuYmpcdWMx PVxaugBaILsuu4WyU7DgOh AwMFxhbnNpXGRlZmxhbmcx ATIiFKI7eeAkNFSnOJwmGN AwWVwpOs9vwHYhoLojKhMg MGSeq8rqpoILGWypVxUuK0 35VVUpBCqzr6wua8WjIZIm yMXhk2A4JNQDvdcczIx0oZ zgH61dj6T5BnsmT0esARNi DGUvT7NmUO1gWEXkTep1BV P7FGM5VKMjWAYpT1LiLG4p HYBvpPXtPPu9q6vvwVfvXQ WeTZL7l0kcPEfdapCvDS9i ar9jrQm7u7subwScRLEkPC LrpCJAOTBsN5AjbVtvNt7x iCh2zUsyZwakJXA2Yjh5KO 5xrg92gcb1yYiwOEFmpdls HaY0TXoaUBGudllbDMe1XW ybERIxfQV0BHKqiBNfL6Uz OYPtLO2ekhb9DJR4FYpeWX MrMuF1MBEhaROkSTXvlJrl FCgvg983PMA7OzAqOX0dE5 Lcd4O8cX8ojDTaCXRjvILw NeNsXEXhmk4feNMxFKtdl1 PwWMD1ggV9sGSmlXBpZFZk VS71Yzdwq6BmEgoph4MvZ2 1jjEL4GXqvq1mjSM9lQpZ0 udFsIMree9famW3kClF9GZ hrIB0aAI6rJMLwmL6ypufy XHBnYnJkcmhlYWRccGdicm ZzUq4pzQvjUJD9CHjaM4dv oM9uCwI2JDlkC5bweX3nRO y8QRmnbDF8AEKsoA1jRE7d cpqbc0mwQXxnLSgoMFEnsr I1toG8LPSddJJbO3CcaC4s BRKyPY5wnyunm4jsKPQ2BL boCGEfTTS7JtZqVURih4Zh jht4MpBtl1BbbNCfDFlpM5 9eu659CBWaihDnO9fdzRAx adbhcOCelkypIJwfylC2BA UejvWxp4UjIMQvMRD8HPxf YPqdzQVsLOVqdHqfv1cxZ4 RscGFyXHBsYWluXGYxXGZz MjBcbGFuZzEwMzNcaGljaF jiJTfeKcDiQVMrNNcoD0mu WsYmD7UkAZObMaIagHUzY6 ggVGhpcyByZXBvcnQgbWF5 IWuiF0n2VGBosmOcoLx5lt VtBcXsWHKgANW1ZDednLXz UWHrg8YztqaqhLBsCc4wsL VrEHAwjO7bRZYqOIQyXXza EO6bpOn4SSRMzVEceYJsEq NWZGXiJX61qgDnBRIBzhjd b5P0BWtoXUNwg0AznRGzR3 jsm2VsZSXvt21tDB1kf8C6 a6scRFW0XF6gc1DhMSJzyY CmbPUqRMYhh6Gboyuav3Yc LRUguuZhb6FePRRtgeBweR LjESUkjeBfsr0toxYmZUYv HRXeJ0BiepiaeTqrduAjPD Vukm9wlbDaYLL8HSAEPGNs BTEgx0PogJ5icVTHOHN0bP Xckg9aeaJPfSMrEXSccg29 SGPsDG1nX4tyAZSrXSRnvs KvpUHcy1FwRIOtlZV1jALg QL2IEmIQm52wTSKqGNLDzv PoQPPttEaybAV4ggP3xM3j IChGREEpLlx+IFRoZSBGRE OjJJ7koeIqa6PufrFjyZbr ROHgqCQir7XxrQExk9UxcT nqp2BvaBRffMGcZG5eZEIe clxwYXIgVVRNQiBMYWJvcm B3d8PrRRSpXNDrKAW7fJbc uoh7JGZlgS4mQHUaY9lxeb rtWAwjPERnr7ByvJ5xzFFK uULyy2IeaNNukPUBhKQwIO 8nmhFnZWnECSkNDXZ5icGx EPQpm5LwHZxyI8znW05hwO jlvVu0cVJ6OWE4zF0qJqz+ IFxwYXJccGFyIEFwcHJvcH LcIFInyDcirmXoB0PzfdDz rD1uzVPkqiKbNP1wWK6zN4 V0fTJrLZQccyKfo1xpASgp dmUgYmVlbiByZXZpZXdlZC Gof2ZmIGrkZTE3PCqbatBv bmNsdWRpbmcgSCZFLCBTcG QosVJoZON0HFffrpGgdaQe JC4mjN2omCdvyZ2oxBFkfH B8qinwIPQkWEObvShcUTGf XL5qjOtfsU7qUuVdGsIrPV zwGK4lEAXhI8xzlUIxNFIk WCUsD5ojGrNznR2cdUqtTV xjZjJcZnMyMFxwYXJccGFy XHBsYWluXGYxXGZzMjBcbG FuZzEwMzNcaGljaFxmMVxk KpNkJNCbTDirV0amCmDaF1 ZyNQMkWkElxDYhC0hmZLix JRJ7BTIuTM0boNZxCE23wG Dem3wkFSojtTzscs4zE59l nGNmKRsvnYzbYICpz56ss0 DdFYZvghJyyl8pOIQghnN0 dN7lTBItrNodDURdpUMfNL Gcp9OjSXqydUPgfhElJJwq WVKcPZMxgPMczxJ3icKbgm JuvhYyAVUnpDacDXKph3Yd IZIdKRwln8Jymp0wvPPyCA XvbfEPpWhqjUSquG9eV9Kw UIJlDWNbdm0xOCKjsD9cPJ gic8DdwomjLNGlXKLgTVZp yfMgyb9yTTKtbFICPO2ZCA bdfNCqy4OaqmOkT9kKRMA9 NUQwNjYwMjgxKSBleGNlcH ZhGFEubp35TJNwaL1rgQgf ENTxvU2joP2dmWrrcW2tWm NbBuHkAZueCS6fJCLaX1bq lHSjYVDqAZZeQ5wuPyXuzM 9jaFxmMVxjZjJcZnMyMFxw YXJ9fQ== Embedded Images (test code = [id number]) [facility] [id number] 19:23:05* Test Item Value Reference Range Interpretation Comme nts Case Report (test code = [id number]) Surgical Pathology ?Case: [id number] ? Authorizing Provider: ?Dominic Keita MD ? [...] HPylori ? Final Diagnosis (test code = [id number]) v1eijHKuJKWrf2ejXRYiiG FuZzEwMzNcZnRuYmpcdWMx DRctrtWwZSjezBjhUSO6GU OfJE3gdUuphKq1jAecXFLj gdQ5vRWaPRwqg0meOTH1q5 lgtmpiTMBsZZbvRy9ytBSf wQlmZoCxEWXjYFt7aM32NZ NmmU3ikIYpKJz4ISNmaCQr kbBwYnUzJBWmhPVspUF8IX LsQK2rtborYIgxSUbuHEQe cgR2IHMakYHaH5ZsHNVbGT 1qsopcJGR2CPfaICDuRTG7 KbPkBOPhg0Bumvz1RrRkqX FyZFxwbGFpblxmczIwXHBh pwWIAoRLZL4GYMJVKYWSF1 jMNGAZJN9DDFDUAgmwlXIk LALeDPIjDRSTUL4CCRNuB6 vEMpMkDN7ENBXmKUGyaKFi IBAatmBMAyDKTM1GYG4KQT wgQklPUFNZOlxwYXIgICAg XDWeHZhTV2VVAOMpFXUUL2 WIRAeXDPdlMr8jEMPMOX7N L1xFZ9FOAZQKOD9JHLkbDS CsLQZdUEXlRG1ANKupDJIH ZT0ITXIURDMXNRzCWXQRZP IDQNqAMWRRF4TFODsKBZSy emivVOGhMs3vE3QHQYIOEZ wgQklPUFNZOlxwYXIgICAg RSFsTKKGF4JSFoXRLW0SP8 4NEIKCWJWXVE9JWOVDJIcE NV2LFJPMHFGMYRMLI4NhiC FyICAgICAgLSBOTyBFVklE JH9CATPTCvYJZYgBRGWhVP lTRUFTRVxwYXIgICAgICAt AW9KYVbvCMXDTH3GKXKQLd dBTklTTVMgSURFTlRJRklF QVDJNEDSRH3NNc5COYMIHk xwYXJccGFyfXtccnRmMVxz x6BuW3RaWyBuAEwxvbWiCI HaHhrurnhyYAAtGDH9nmZo ETWtVDgaUQLtDJilYr8nyA SrbZgpWfGsYJPke7xaytMJ VDxlLwDmQ412VKZeSXabe7 vvt8BzIJYlmSJpy5D6XKQP oqhueKb6m6miCtCsXnL7pF AjIXbwL4bhxhHvzSFpF7Tn fCUrfVy3iDwxI15bz1Q9Qq rrI5zzUHYxKQBwW3FqBF5j WXXoXrf0BRS0SOY2OYWjHR MxV4AmCU5zAQFpwGAtPKx0 x6ggwGhpVRGlUMF1d7ecXH afswD4EC5qbl5stRs8p8sb czEgRGVmYXVsdCBQYXJhZ3 TehMkrOw6ewLj5pVlqDfcn CFV2Uxk3KP4qpv22nhl6qQ nhKZZovjyqQoA8ZLcuAOOj hjktPSj9PAzeLCLvtFI0WP CohLIkG9PnOEYnUF0eodu9 STB9QGkiBOYiUrE7BWMecV NeUYPwjQumXOfrw510IMS8 SwElFD6bQ6Uxx4J2rD8obB LcKIHndJFkGeQhSYKwqz7x pOSdXZhyf2LiKDW0ybJ9aN VgjMPmAFTaQH49Yvnjj1Va XdqdXPD8MMOopbXgp6Lcd7 tqIvFywtFpM9ksL5PdBGIo KDKzWQGnOeNnbsTnj7Szp4 IauCRqlQe5r8bfRAPdBAPc tTpjr0ojWYO9VODpH9O8pD Jxq1riSHoyOCTvvZE0liL7 TKIpbFRmY7EfwU2eLXSeYQ 6houh0i2fnWWP9LLuaVGYv KpZ9isQ0ZIYlfMBhDWNjnM ltVPglv381MVB2CzUcIYWb k3AyB6KtcKjqK16evLagR7 6xHPUxcFhiuC0pfHjajJ6p ZjBcZnMyNFxxbFxwbGFpbl xmMVxmczIwXGxhbmcxMDMz HGcaY5ryLpTpQGEigUyqKT msz8DzLVEhPINmQxvnbgWt XHBhciBJIGhhdmUgcGVyc2 9uYWxseSByZXZpZXdlZCBh zZmsx7JtL8uwVI6yW0VmlI GjsiErwjRsOSqvJSKqh1p9 mEPyuKnyp9SecVVoWY97it IiMFBbLGP5UUAqi0mmYK47 uowlZiRryB58iqXndnXbAH Sqp0gmT4mikWPaz4Oju1Ul xzTjWFetg8ZvQD9ivLNsfe tjiMU4FYEgfLEokkJszxP3 mYlrZGVqkH7mpN2cxGdqkI 6zYdAtUnYbBUfhYU1rJPWe D5wrmZKqLUVxJBGcT9tvNj VgwF8nrUkqCmrabaH8QMFn cn19 Clinical Information (test code = [id number]) Shivani Schuler is a 47 year old female with IDA1. Gastric polyp x 6 r/o adenoma2.Duodenal Bx, r/o Celiac disease 3. Gastric Bx r/o HPylori Gross Description (test code = [id number]) w3nbxRDwULPetCXBJUK0VY CrHY6vdBomkDk2yOliYDCd fnY1jCCnHVuyv3diITK9y9 qkvuMBPpyhJFXmBQ7nYOfi AFPwYR2iMdGyYLQcGpTmPX BhcGVydzEyMjQwXHBhcGVy hYL9CRXdIN2ruuriXRjqOW xyVESexwO8MLXvdZSdS6Am HKXhXY2nojzjIBE2AHATSa erOz4bcAKwbOrsFqAiOwRp YXJzZXQwXGZuaWwgQXJpYW r2fY2PGaxuXGV4YIUIPerl ZvmezRkeq4UzxBIjVDZwNK xcaWQgNTEwMDAgXFxkYiBP KzYvSkB3Psa5YOH8PtN2TZ h9UVMVTYQiWgnrJYN1SyP1 RIs7GTTsHK3dMJsynWHsLY saWbxrQLsqZ279EZvbSOQv T4MdE6BgTStbLgBzCBirAV QsFNZoDRsmLNJlP9WRMCTp DMH4XjTzYNWtYPk0DJrbO5 PNODBfTCHpRcC4ZMJsWvA1 XYr6DPVLVf5vFPwqWlBjJP k4MNB1GWf4ZgTyXXXgNwKi ACEeMPOcJPvebMAmKL7frZ iaKFMiLK3HEJWxISqqSWGi LpUhJ5QTM9zAES8yFRvqgZ JjaFxmczIyXHBhciANClxw BLSpQD9IXPFaBZgtXXq2vu CrNOFsZtYkCJClR03mp1TC f9TuNL6SOFi0xfRjeursoZ 1pTAEltqLfSOlFrPDdiY8z dmCZNRdiWRYfR0SxvbCzVB gtMVFcpn8urZgjDCrkJtXb bGVkIHdpdGggdGhlIHBhdG ewcrYyW6Z3kqUnKP0jBZUO PASntP5zRVRhLVAru9QcwM JveRxjH4TvsBZgCfFzl4s4 yQA8DDVcshTqAJYfrLThQH Vwuw1hSRnrLpGcG3W8OFVi RPNsy90wwJN6geHfTnUcoN x4uXPaYZX2AA5mpZsbbbJp i2f7cE6mSEZdq8Q1LBAhw5 M7BLRoghTciDPafNXlZMLe TP2llrGmMH87CFSmEQgfCE lwKRH2HXW1ARIvwBCkl5gk xacmEs3uLWyxXF5jABypKM 43QJUlKWdrFYFqX5VbK0D3 MEmbEGYyNETnqNJugV4ppg LmdzOnqRs4BOGzVZH9tEIr rUozHOAcPzbveAU1SLIhWd EviaWdk6AbcEz4pPAoSRrq HXYzgA1raQ8wERZgHMHpwt VDEpejZVGjCGplt2VyQOzg cGljWHNhMzAgDQpcZXBpY0 8lk9FWw1Fxy0lulAyot7Wy jPKhBQ0liPKmVR4Vd6dhZT TbjYHcHHZ6NHzqm1fdRVkx YHI7UGYwMeCtSQLhGL7RUl NkAUltLRu9WGupNIc6TKu5 UO8TDiLhEYEbEqj2RpE9Na JyHJi9UUiqTM0OKUB4YAUr ZDEnMNxfFSH9HUYyHHp4PQ IgXFxzcyAzIFxcZmwgXFxu N44xvLDkXEgwOiPbITexpA nkCFBaXVO6OL1TWJQaLqBx P1PUT0kFYD9lBxuwsaCwVL YrsgCNJvnjGYPjLV6FQWJw UNkjCTf6pnPxJTRtBtEqBA CqR25hr5IAt8CdKM0VBIr4 szOhaiexpC6cEQBkkoAdg8 IzMFxlcGljWHNiMzAgDQpT zQKuvC4iefKOSFjlOIRtT7 QbjoVaXVsiKKDnew9bfPuz IGxhYmVsbGVkIHdpdGggdG xfLWPaiMixjcKeP3Q2ppRg CB8gDIVFEOKewT1hLQBsND HnDEIcHTGtcH6nPMC8o5Kw tvPkLXVHNURkxRptOK89qJ BjZWxpYWMgZGlzZWFzZSBh mgXtwaImy02zvbMxq8VcYU 8ynUsySBfMTXzoByHdAI1d YAJptmNpr1EdHX7kBRTdlS LtJLVsqxnqzYNsIPb3bCMe AOXtEgRwuXhkb3KqVCRePG cjTN24wyWkTD1dYXsqWH9u LTeaFN2rUQWqVZMjIQRlRo GnvZXnRoCpoELiXaRmP99u FbUEnOFov9SjG7poNW2qmD WaFlgqmPJmIOTqyTyjw0Cz mUKtMFZsg3InvRAmYUgtJH 9gBFZ4In5tnORsYZSpepV7 y3HaWCitTEAaYqpxJKXiBJ kil8LgBRWdyRVKb8EvFI2F XHBhciANClxzYTMwXGVwaW BNb5EiRYROPixbyVyrQqFs lQKfVpO3QVHccPNcDFY4GI 0qiIgtBHPzQFl8ORezYKPo C9ZwG9SnPSwkUaSrCAfkRZ HeAYEgLGgtQHXaN7EXZBFh OEL5NyXeYKVbOQu3PFhvR1 JGMDRbBMTrRiA4RIF2RbW4 BPy0YJOYEz1eTCveNrTsKR CwPtP2DWg9CxScNYVyGnKg XZVfETBiKZmmyCCyWE2mjU qcPZGxRCRnUCH2MWJplZQN g8LaCMIpMAqmQuGoXCWRBP EPRE3LZwXSUCTtIxAcpRIi MU7BNYVfiyExAZmgvNxmwY 5mxFLlX0juShXlPqngbSzo TmVzdERvYzEgDQpcbHRycG FyXGxpbjBccmluMFxzYjMw DXNnlOVOz4CeYMTNIuToIZ NpbWVuIEMgaXMgcmVjZWl2 BVHsvL2pDm3jpYFboX5xvL JzLAwySYOgc8v4iZY3uUEi qJO0pGAsbIbiKlUvKZ1inI FlJVALYF02fKDgdoYxALQf gT0yLFFiOZKbTKA1asfiUO VSCRR5lDVea5Q8LBxmKZU9 qL4mvSucUqEvH4L6BSWtUI Enu96cnNB2wiEaAwSlDKJg sn3brO6tDEywjmOhqHovnc Tno4W6SVGbq0I3MIOsoaZn mJPovCQvIJObEzB4SFQhDr A7LUHjDYDgkQSwYVOkPL6o VGhlIHNwZWNpbWVuIGlzIG TccLMxzqPbDDAnvd71A3oa OSCzaJ4gm5wlEyNyJOQdUS RctPYbjXT3ETVisO2ydD14 azWuacMBLK0zqNCfJI7FOX NiMFxlcGljWHNiMCANClxw IHKkSSqii4OpLIwsnUirDE UtTfBaXCcMsZlcHZLQM9bc cGTwCXmaTLITVNiSQ1XANW 3JHWKjxJPTTNY1JY7kVFex ZISwQ5WbS8ZfchM3t4hlfY vah4FmvXNcOG2ufOPcXT5K XHBhcmQgDQp9 Disclaimer (test code = [id number]) m6gsdWQdXNEwo1caEIAtnA FuZzEwMzNcZnRuYmpcdWMx ZEaoeqGrTIcdq5AfO5AxMy AwMFxhbnNpXGRlZmxhbmcx ECPoBOR8tbGqISMdTTweZC PjYTolVg5mhACqnGymSrEb UUBmw4zgxzSHSPlhInLvA1 23EDBvCGghy4wjd0XvXBWo dDZyb9R2JDKCcxnitRl0hD ifZ95jy1W5TqkmB6czQZSu IXJvK8BwVD7sVITlHhv9ML G4YIC5KAJvPKTjX7MaBT2h EDIioOXjNEq2c7xikPxwSB JaVKN0r9fzAAbkuzOcNZ3d wd4wuAd6u6mnebDaFOLlZE TbtACPZZJiX4GczSphGm6g pUk5tHngBbrcDBC5Dyq7LZ 9irn39xnt4hKxiBXYgyjmo VjL0HPctXMOagkolXHf0KQ piWSRqkNK5NMXpmUNtS0Tx UJKdOL1prna0JJS1SEhhZW ZcTvF5SPVodWXzCAOnzTgw CMldg663OMA7OvNmGJ4eR6 Gxv3W7qS9ueLFjJWUypPKp ThHoOVUmna6fnINfYLjac6 SiPJB9xxN3kADmzZSmAABm JK80Tusoh7EtFuwhw2VkO0 5buDV3WKiyd6hqJE7pSaR7 hqEvMGypp1drhE8oHqD9GJ mqAY9mIM5eNYCdfO3qqfcd XHBnYnJkcmhlYWRccGdicm FdCq7lvPyqIQM4DEzjD5ku pH9tBbA2GYteQ2jyqJ5bDK m5DPegmTV2KDAoeE2iPG0w wdvee6tsVZkiXFsbKAKwrs X6glI7THUnyGFfJ9SkaP9e CBMaDG3vjiczx9bdBLC7AC lzWOJbTUM4OfNkEYMoo7Fj igt2JhTqa5OltXLmKCopP1 0us099YRHuchEmB6urtWEn eiyfxQEtutxfQLrfczN9AC JtxlGtn8OcGXKpKTS1TVsx ARsqwPEvUXUsjTwfh0tvM1 RscGFyXHBsYWluXGYxXGZz MjBcbGFuZzEwMzNcaGljaF daDBbwHgPaHHMvOMpdF6ja RqGyJ9NlUBTbHtZbxREgD3 ggVGhpcyByZXBvcnQgbWF5 KSpkP6n0URDrbeOglDr2yu UlUuIqHXNfNBA0FGgvjXUv YAWle2TtdwogsGEdNo1dpW EkCJLjdL7uIALeGZWeNUxt EV9jpKr8QJDMhKRpkPSxRu GISNGbCO47tgDjGFVBmzza h0Z2EOaiCQFyk3TrmDAlS3 duu4XyFRRof48dLW3bd6D2 a0cnBRT7WJ7dz4PgECRikX IrqRNlLUIcb3Jykgnwv5Ky HTGmiaAyf0GoWBFmciXjxG XaAQCzghFiiv7urzIpKXPj XRRdU8NrafouxDwthsTuAQ Bqkk5lqsFmBXI4GGDIIZCk NWJtd1YfuW9xbCSYGXM8tM Tteg4raaWOuGPhKZHmwh71 OUYhLL2wU7awRTKcUHBayt OllHYdf7OwDNGvxBS5dWOc ZJ7IOhWEq56mCZUwCCUSpw NuWHOukLcfsLW4yhP9aF1s IChGREEpLlx+IFRoZSBGRE PjBC8dmvFzd7UbrfWepPjg BXGfbWEfq8TjaLZzv0SaiI xul5CrjWKefMOiTV8zJSKl clxwYXIgVVRNQiBMYWJvcm H7n4VaCHSnRWEtWNY2qFpw yfp7YEKdxO1wNRUzU6jvnx glVHtjMHGbr2HdiR0bsGLL uZLzt6XwqVLgjZEZeBXhQI 7wcjQsLZjVBHfBMAA6ixEx RBKfo7UrTJqoR2imB33dhT vuwDp3vCR2KLB2aW6oZeh+ IFxwYXJccGFyIEFwcHJvcH MxECXunKfzkdOlY6ExabHf kA3jrJGzfoHcOH0eTT8nH8 O1cVCnMRKhfyLjd6cuWKxf dmUgYmVlbiByZXZpZXdlZC Dmz7AeETmaFNX8CVklknDf bmNsdWRpbmcgSCZFLCBTcG DtmDBqYWO4JPmhlfDdxeNf AJ1fzB4rxWfxrJ9ibWUihF E1arldIGTpITUnpWllKQAx OB7ipWyjjO0xYvDzCzYpVC xpWX3eFNWbO7sdbXRoHYHa VMHqD0wsCiGyzH4vlHfiIC xjZjJcZnMyMFxwYXJccGFy XHBsYWluXGYxXGZzMjBcbG FuZzEwMzNcaGljaFxmMVxk SaWhAFPjUPvxF1stTeGhZ8 SiWGBiLkWgkMUyW1rdAUph IWY4OWZnGV5spOLjGX57aL Die3xcPQhgjSfhpm6dJ74n vKNtZYqdrGisPLWve63rf6 IeIKVsowVjds0aKEOdqwG2 xC2pWXFjmNgeKYVvvULiOA Nzw3GeJSvakIAnmcAbJWvx PPEqMPOtyRSwehJ7rvXusi NphzXnDVCtjNzoDKNsc5Kb HDAyAIdin6Uqmq6sjVFlJQ RhqpFLvIpzrRUffC9eY7Mr HPOyWXWxah3vVIEeuC7gPV jbr0UuxojgVUBvQGWuQEMl orAkgk5vQVVqdHGVGI7YRT ucgDQew5GqgnCuC8wMIRI1 NUQwNjYwMjgxKSBleGNlcH AyPKJcgn03CQKgzR8jyKel FYAkjZ3dfR2bsFvubK6bVx VeKjHkGGcdQM9zDYKaN3dt qTLkSJRoMBUyO2rqPqQpgY 9jaFxmMVxjZjJcZnMyMFxw YXJ9fQ== Embedded Images (test code = [id number]) [facility] [id number] 19:23:05* Test Item Value Reference Range Interpretation Comme nts Case Report (test code = [id number]) Surgical Pathology ?Case: [id number] ? Authorizing Provider: ?Dominic Keita MD ? [...] HPylori ? Final Diagnosis (test code = [id number]) e5xbrJWzCPYbk1xpFYKaaB FuZzEwMzNcZnRuYmpcdWMx OXhkfpXdIXybaPawFQY6PK WcJF5hmHjydJx4nJxxKAUb jwN4aUQmPIrjn8jfUDH5b4 wpldkyNXSxCSihGl6ztFDz rEpeXrLuXDCpYVc6dO42RM YxsI9klNDjGCf3FTVmmELe ymDyQhQiDPQwuOZzkOV8EU IdNN4dgoweCBljRSjvRIAf wiU6CNZeaYCcU0HvQKTqAN 1smtjdQBJ0NXooBMCeDGR7 EwHoGGGwq5Vnrqx4RiQfiL FyZFxwbGFpblxmczIwXHBh dcQFZlFGDC4JEUDXZBLGA1 pWAHJTRM9OMYNVPmzpfLMr FNCyOONuVUGSJK1JPVQzI9 yVFyRzFQ1SVFFxWIZraHUv WJMdzsCRDiBFAX1WAV2KWL wgQklPUFNZOlxwYXIgICAg ZQQfNGkMY5CYGMQqSHQLM8 PFVTpYAIgkWa9tHISKCV8V Z1aSV1JGZITXEV9GDOolJT WtGKJjFBZhGO2CZFfhFHYF DK5YUKPGTRSLIZgSXREZEX HPLTcZSIKHN9WZMHaLKZAx frhuAIGfPu8fS8QHRXBGYI wgQklPUFNZOlxwYXIgICAg TFVlQDJTK5QYNbSQVV3YE8 3PVTPLYISOHS4TKBHJWRaX AO0YEWBTDZFMPQJCC4VsrH FyICAgICAgLSBOTyBFVklE KV8NRNZLGtQDNCnZENSlXH lTRUFTRVxwYXIgICAgICAt BN4PZPscSSORDN1CAGPITi dBTklTTVMgSURFTlRJRklF JHMWGIJBBY0YKc9YQOACZf xwYXJccGFyfXtccnRmMVxz l9PgU3XtFrPaITayxwVoEM SdBelidstdSQMcUAD2ibZl XCZcIPceJUHwYChlBh3yvH HbdKmjIrHzIQRub5zzglXQ UZbyRsHnK623CRUvNFmge3 trf0TeIXUpjBLfw9K3WHAK ahtdpSr3l7wrNtUvZqX6gC CpZZvbH4dlvhItkJBnY1Sy zLQdrVd6cVbuZ29hx0I0Er fpK0xfASQuBWTtU2KdTX2t LAFpDov0PKX6HSB6DMHeDT VdG4HqYB2fGLLjzRZoYIb1 a0unySuiUXOvAKK5d0imOQ owjiJ9OV7diq5xwYg6w3qr czEgRGVmYXVsdCBQYXJhZ3 LyiSfrAb6irNb2fLiiDzbr PYF9Xew5KW2nzw75xap7bR gwCYXrmwjyZbE2ZTceQSCs ynyjSAa0CDvsFCFzuCY1VM WbwEAhA4UiMFZsZP9yvvo0 OYV0EMjeBBItMqA6LFZchJ CkQKLgjCmlGWesd270YQM5 GgMiKK5bO6Ydp7Z2yI1xgH LyPSPbxVAgGtUfIMCatw5d mVJcZWkom3UyJFB9quP9mE HjjJFaXSRhYT13Cerez8Gm DakdJAV1HOBiahDqv5Fvk3 dlSwNavoNfQ8yzO9AyXLCh SCJnCUClNaLmznGph4Myh7 YntTFmaBg2i0pcBNAcJQYy kKbjk0jaJQI3NYLqA2P6pN Jyu8cpIVyqSYYhmIP3pgF6 PRXnfVUoS5XrwD0aOPHjHY 3wwsr7g3hpGIE3IBaoKDBi YkR8zvE6ZGIrgTFnXFCbvC bpPYluu817PLQ7KpIyYYFm t4SsI9CfdZmjS42xlFofD3 0sEFBwpYjddY2ukYbiyV9v ZjBcZnMyNFxxbFxwbGFpbl xmMVxmczIwXGxhbmcxMDMz BIhdK3azClVuINYjnLroFK hyq4NrYCKuLRLbFmbdiiGw XHBhciBJIGhhdmUgcGVyc2 9uYWxseSByZXZpZXdlZCBh uIhcr2OrQ5eqYH2vS0RxeC ZzouHqtwZbRHdgAFVmz6d4 yVZilKzfz7CeeJFlSZ40ca KlKUJjJCD3LGBgp8nhRG44 zetlFjPswT33emOgcvElUM Uws8zpL8qgoRGta4Nts8Qh kwNjZIoaz6WzPT5dpLTugd whjRE3DTLscKEckcAzflE7 mKhxBHQwsV7xwX1gyGjtaF 2kKfLgCbWhZYwjGD9iRXXy F6olfIAgKMNzYYYfA7feFc YnlE1cbVnhBndwamO6WVBo cn19 Clinical Information (test code = [id number]) Shivani Schuler is a 47 year old female with IDA1. Gastric polyp x 6 r/o adenoma2.Duodenal Bx, r/o Celiac disease 3. Gastric Bx r/o HPylori Gross Description (test code = [id number]) a3jbhIVyBLUnwRNTMCM7XM WuKM9njUwlhPt1xKalYVQg ujF0rWUmAFrns0ozKLT3c6 olyjPJXdosRINrEW3rWEye UYKgSY5oHtVyRLUfSwKdQE BhcGVydzEyMjQwXHBhcGVy pRO6YGOkNF1diqdnDMtfQL hhFQLvoqZ1SLVclQIsJ2Kg UUOfYK7thhqrZAE4UJJAGe pxYc9raIBlrQwrXtWbEiDi YXJzZXQwXGZuaWwgQXJpYW j5iF4PCqmbYUB3ELYVXazh MoedsLzec9AnaQEaENBkSS xcaWQgNTEwMDAgXFxkYiBP QuIjVxW8Ejb0HJR1UeD0HG u9GOCNCCVqNhlgVSN0LcS9 XRp1FDSySH2aMAnxcLElVS hhNuzwJAhsF793PPbfAHKl S3SeX0HbXYocHpEvGSvlGY VvHZYyOCjgCWMtX6OBOCKs HDB6LvIfRBAwFBd4MCmoZ4 SRIPNoAWCjDgT7NRJuVyI5 WTm2EJELAr8zSYjyTsCcPA v3QEV3OCh7DuMoSWVdTeHs XWJrGRLoLNbqqIWwJX6ttC icBZDxYR2YYSCqKMouPWJb FrWyX6HUF3oQSM9dOGurgJ JjaFxmczIyXHBhciANClxw TTNwNY5BXSSwIQsfHVr2st IjPRDbOiTpGEPnO26vj9TB c5PiIB2PVQk7leVxzfjdlR 4cSBXtqoPuLYhVdGJhhT4q lsUSZWbmBKHqF6EtyyKmWC twMFYewl1nyKiuKXhjKnXn bGVkIHdpdGggdGhlIHBhdG ysxuXtK0D5igQiUS3bUMHY VABwhD8lDJYiATUku6BsdE HcdJvnL5EneYJjQgUan6t8 zDJ8XDXsmbTgUQPdxSTxBB Nwkb0aPRxqNbUcW6B7EERh LYSeo60avQA5kbBoPgSzhB n4sIDtEDK1MH3iwIzbnlUy n4q6qP5cHEQms1N1JVPso5 F9DSXdixWcmTKxzCSaYQHu UL4dokYbGR89RAJvTGfsPR gdEDR1JVG8OTYbuGArc7hd tgwkHu5fKNtpLF3hZYqhMH 76XPHmGHmyTMIdM2HkD7R4 SPzhCUUfCSQenUZxlJ1kmx TkgtSkdMm5YKCzXEA0pTTn qAlwUSHyQudhkKF3QVJwMr BuuzZjn0IguZl2xDItCHug PCGjrU3lsK2gAHLbDTLvpi KGHzzfOPGdXWhwk3OvRXvn cGljWHNhMzAgDQpcZXBpY0 0oj7QWh9Xvb5dhcNszm1Vf vVKoEF7eoMZbDS6Zr1olYT PbmAWtSOP1ATylp5bgJEyq JKY2WYTuSjGzTPDbGT5EPv BaZKnrBKk4LVpeJJi7SGn5 CS6HUxLmZJJqImk9QxP1Ts MdAZh6VLccNF6QBZQ4RPUa PFYaOOiaDUC2CHFvZCf8HL IgXFxzcyAzIFxcZmwgXFxu N23hiHNbWSsdXnAySOyjoN edFTGdYAZ7KB4PNARoNyGr Y3VQH8cEZL1pKvvpcyHkXW DasvSEVitpNVSmNF1QRDIe DAvgFHk5baPeWZAaJmUdWL HkU86ae6PMh5HwLD4JTNv2 edZpammspE4aNNZdctWsz2 IzMFxlcGljWHNiMzAgDQpT rDTkrQ8anjZRGQcxXHVfX0 AmskGoICgrBSSorn8xzXfe IGxhYmVsbGVkIHdpdGggdG jkIUTrwTwvzyGxJ2S2jbIf IQ5dVQVHZHVdkL3uYNFoPG AeDSLfULByzT7hSPJ3l2Yf nvTmTGYTGBWsuSxjZZ59xX BjZWxpYWMgZGlzZWFzZSBh rcMihcVws50zprJxo1KbLV 7jkDdaNSvMRYheUxRaLU1l SEAitzCgv0TjLU5pHCLkcJ GyUOEevggyvDMvNKj8hBRj GRSkLcIpaIlap2AsGHRdQG tiRC73ygKrMV8pHBlhOH1p NUgvHT9bIPUrCVIpWPBmUa LzpTOqUdPgzLEbXmLjD41y JqJClFCkb9TxC2vnIL6zoD AwEeczpYQwUISqsYlrm9Ue kHMaPPJge8ZrwDOdTCjxPE 4aTKS4Xl2poGWsSUAyrfY9 k3SnCZjdBJNuXlxnWOLqPG hzl9ElEGFmcXAWb6FdUG8C XHBhciANClxzYTMwXGVwaW ZHt5JqJXGENbdglImnShBn xODoPuA8SEEhdHPsSSR0YM 0joSqhZQWcVWc9UBmhGMFt V9WbZ1HoIObuGbHmRLaaZD KlVBAvATvlOEFkU7MERALu BFM7SiGoGFDvFAk4SXaxF7 JJLVKaMTHbSqD8VTV2WfF1 UWu5RKONPd2mHYksGlDgSW AcDtP4DEb9HuSrXMVfVqWq BGUbBUZeHFfwbQNrQL2xeE qjSYFqCEYtFOC1WROtpFUL w9YfWGSrBSafXnRmZLWBGB TOQU6ACuPDHCPtMmTfrGOs JX0IIOQmlhAlHMynoNtxkN 6zgOXtJ2fuOdVhRpngeOgl TmVzdERvYzEgDQpcbHRycG FyXGxpbjBccmluMFxzYjMw AOTsvGALu9IbANJCXqRtOW NpbWVuIEMgaXMgcmVjZWl2 HJKpoA7iGb4vcDCjbJ3voJ ViOBvsBEYxm3u8fKX0yHNd gSI5jWBesTkiHeOdKY6zmI WsPJGJUP65qDMalgBsAMEq nM3bHCYrFISeYNO2hqepRN XPDBX4aXYpx6J2LDnlGBZ2 bS1guCkmNdIkL4D7LBTaOK Oox27kzIR8kpNvZgUhAUFg oi5jrA3iHZclzkCmtVxqvh Apf2K2YJIiu5L8ODEyduSo eUCpgQVxGZPaGuS0KGRlHd G7EQCeCIEuuTRmIYOzUJ4u VGhlIHNwZWNpbWVuIGlzIG YfaGNdekXqHYRwgf32R8aw PDVyhZ0wr4gqFxEwZIDkIK CmpHVqxMN0QHRgvT5wkQ06 ztXibqXWPA2txNMdCM1ZQX NiMFxlcGljWHNiMCANClxw WYHwBWzek4DyHJvsdGgxPK McKlVrLJzYuZapTFVKH6qd dRPnZEroMKOCFIvQZ0SRXZ 3NCEMxsJLTGJL2ER2nMTbt IWOcE7LxH4SwqzT1c6wiyW wmx8RcoQZsUC7yrGMaCT2R XHBhcmQgDQp9 Disclaimer (test code = [id number]) s1dtwLDxSQBdv2hkEFPvbO FuZzEwMzNcZnRuYmpcdWMx MWvnreGmUXyxd9MqY4IiXm AwMFxhbnNpXGRlZmxhbmcx ONMhHZU8vcVySYFuLLfvEJ JcCIavXn5xhBSsrLhdWgDc NPAfp5jgywUBSAriToGvJ3 81UGUiXHlzd0rzm1TdVFCs lWCzo7B8VJZQkcucuCk1uV riK47jd6V6WugwQ1ohTCEe VVEqQ4DaJV5bEIUgQbt3VB U7IVZ9UQExJTDoL2SmGT1y ZSCgvQKiHSf2z9kijDsgEK KtRNU6h7oyVKhujaJqJV0y az6feHm0w2ogynLfDUTePM UkbYUWEWFyR6MtpBqwHs8n iZp1cLgkGnzeQYX3Qop5GM 1ihk88eod3sJfzLYGdyrnu VrP3YHmsRHZlvkqpTAr1WH rnRLLciFY1MAYkrAJjR0Ir MDHtSD3dbbo5MGY7HHjxAQ XlCtF5VLThsHOeQJOnwKhk PUyhw126QIL6OlUyHD4cS4 Bbx0R5qU6hzVNoRBNgpWOo SfYjJIAkhp2skJAnCQchf9 IiQGP9elD6rHNroXIqBKFb GE21Vmjml3NlCygrc9YbD1 5snQM2DTgfm8htAN5hUsP8 djWvFKklh1fydD1uQwV6KC xxCW5iQT7dBZXqvK3xqjgl XHBnYnJkcmhlYWRccGdicm GtZm2jnDohWJA5UCtjL2bh lX7yOoX9UPppI9uqzI5dEU e5DJmviGY8ZGJhsC7eCL3v wxbiw4upJKqmZOvbACPjfk T7jhH5UQJrgOMwG0TvwM7e AKTnZP3foaqev5weELR9WB njMKHqDDT8PcWyYAZru6Nn amr9WzTbk6VhaUGkNWpbI2 6ds258ZNVxpkAxW2vekPTd zjtukUXqasahHLgfbrH5SY GprcLbn1UbMXPiMNW4PXkf DLhxeLKyRSJaiKiwl5pyP8 RscGFyXHBsYWluXGYxXGZz MjBcbGFuZzEwMzNcaGljaF pdVBcqWcFaBBLbABibO2yx FxYrW3BgXYDzEoOysQZsC8 ggVGhpcyByZXBvcnQgbWF5 DUaxP4h3COXxlbHfdYx4pn HwScJdAXRqLPA6NJagpLZx OBHpc8BtodyunAVaKy1kxU RbZVDlzE9lSMQwYCQbNQmz OW2ukLg3IZOLxNPyiYUzOs UUDBHqXV04kjMsNABOzcay o0P3AQpeWWRqm9FbvCSmC2 smf3SlBSElc11nRD2as1D6 a0hnTIG5YD9mp2GuXEZelV LpcVHkSJUdy4Mhhwzxt4Gq BULlgmQbs7GaGZPcauNwrG BxWVRysmEkyh6mhuHjASLs XDXnI3GbiegwiGxkewJnGG Jhrb8bgiAdIHI7JQXXKCTd VCQio0XnzA5tvCRHRYL4dW Mqmz5rzpWAlBWdNFHabs56 PUNnFZ1wA6qcYYQpOEEtuc MwuNFij9VsWAHefDO9tFKg UY8KJeYTq70eGYYbGCDDag YkHBEcsBoswPC2doU0tR4k IChGREEpLlx+IFRoZSBGRE NlFG6jxeBtt9DdnmYgiLji LVNzjKUuz9LhmWKno8EvjX isf0CrjRDdqEPzJO6pSNRz clxwYXIgVVRNQiBMYWJvcm N6u9CsLMYbIEGnAUU1aXmz ivz7RYCtxQ9eNVCjN7adxy qtVYcfNOLpn2XzzY9gfYUP kQNhf8BsjOKvpGDFoPBgQU 4utdUtUThEIGdNCGZ4hiPp ICTwm5HiUVpwW1prQ31tnW rbbIw7rUT4GMU5yJ9oHfa+ IFxwYXJccGFyIEFwcHJvcH OiRONzeXnzpyLhE6HyxcDg oX4ywVDqfqSwSL4iRX0bL2 R1wARxPOGmqeOif6kkCVeh dmUgYmVlbiByZXZpZXdlZC Ktn2HeKUvuWSE0RVlfduKq bmNsdWRpbmcgSCZFLCBTcG McaABiANM3ZSwnudNbdqVb HN0rlX3fbMjqbU4cgPKswK B0yucwVYMjLBEsiXufFWHp PV4euByuuL0gZrSvRwWlLO hlDK0dSEFgM3apfRUeMJXu WLTsN9okBrFpbA0ghMdnPL xjZjJcZnMyMFxwYXJccGFy XHBsYWluXGYxXGZzMjBcbG FuZzEwMzNcaGljaFxmMVxk DrKdEGLcEPbjY9fbNzEvH9 XmZHAiCaKwnHQvF8apTGrg WLS5VHBdEA1dmVQiRP22hY Mwl3ooXKiywXqmcw0mQ90l hKBlJJmliYlsVHRay20hn0 InBLJrnkYcrp1rXUWhvbB7 dN6nQZPnwKnmTWNiaOAdJJ Eju8VzTUkiaQOlzfWoDTza QUJyNNTzuMCmvhB5baZqcq MpeqHbPVAlvRfvAOTrx1Aw XFTaAZcpr9Zchh3ezYKbID UiclMQsBxmwIWxnC1bZ9Vl FFFfMSMytk4mNSDsqG6gOL bfp6HijsrwBAYmSZAfMIHo elBblg9lZUXnnLNASV8RYS bhePOhz1TnvoUeF5lSWBF3 NUQwNjYwMjgxKSBleGNlcH FhLJVmrs58LULluA8kuSuu FRAnzS2ckP2leEgxbY4nAf GbFmSpXRoeDS6gPQSxE6gp zCDvUNCwUZXcA1laBqYomN 9jaFxmMVxjZjJcZnMyMFxw YXJ9fQ== Embedded Images (test code = [id number]) [facility] [id number] 19:23:05* Test Item Value Reference Range Interpretation Comme nts Case Report (test code = [id number]) Surgical Pathology ?Case: [id number] ? Authorizing Provider: ?Dominic Keita MD ? [...] HPylori ? Final Diagnosis (test code = [id number]) n7gjjIIrPNAlb5vnLPChpA FuZzEwMzNcZnRuYmpcdWMx UVcdkaTmJYeltYtkLMM8YO TuBF4hkVebhMz6kCqnZTHb foG5zHIyBCurj5cyBUR3d0 uhyohlTUKpYJbdSn9xbLPy gHbpNeHjQHKhFLr2uX39LC GbvY3hlGVwYNs6ZDSjxCMq ifGcSuWmHLXqfYYslDD1SO PwYX0vzgolNRwfBTnjJCPj olX5PZSylGPyV8PkFOLwET 8uppnzVTI0ZPtbZTEgBLM8 HyCuKLQqr0Kitod4YsVkeL FyZFxwbGFpblxmczIwXHBh xbRWGvRXSY9RPMZZHOIGC8 eBVUHZMF5ABUZXQplrtYYp OOGmHGThWWGICN1IGACbO8 nGVlOyTV6ZKSQqTWIbjVHr PAGhrvMHCqFMQV9OWY2XAZ wgQklPUFNZOlxwYXIgICAg FZEwDXzQS7UYWXBeXGWJL0 XPOUwYLApnVh1mFJUEME5Y R9cBK0QMVNMQVG6UIDzkVK JyOBQqKXLtXT1JPQyyQREA GR7JDNXIHORDFUnUKFYJDX ACOWsEWXEQH8QEZAsWJXFt oradVGWuPp6lI8OITRUEBT wgQklPUFNZOlxwYXIgICAg UUHiHQIQT5QFWpJTFR7WP0 4EHZBAMDUXEQ8EFYFEIXnP AL2DBOROJIOWPQSZF4YvbT FyICAgICAgLSBOTyBFVklE GH2YOLDBJhJORGhEFFVmOT lTRUFTRVxwYXIgICAgICAt ZD6OFZknYMXNIV7MRFEKBn dBTklTTVMgSURFTlRJRklF JDZICZPEIH8ETw2DDYLIZw xwYXJccGFyfXtccnRmMVxz x2AwZ2JeCpMgULksmnJnRL UdSmgdvxpbWNTdKYH8jyUm TGUvWGsxVLJmUJkmUa4cjE AwsIbsAtQeOMPpx3sklmAB RTohSgGrS238FHQeLRisr5 vgs0FoRLCwqQOdf6M7SEOA ytpciSh8c4eeWaVcSyW6oA TzDFojX4debcRybDPfU1Zg iMCicVz0zEuyB81uc5Z6Co cdL9kgUGSlOAThE9KbRE3e ANNyDnm0AWK6TRK6FJTrKD KuO4OoDS1rGVZtfFQmIZt4 y7pnoThzIDUcTQP8w8gxPD ccepG0AF1osh2yrHi2c1hf czEgRGVmYXVsdCBQYXJhZ3 ZmlVrbHf3cwRe6zUegRhmx LQJ8Cbw7YE5ykj90nki7xJ awCGTorfqnIaD3CQojDCSx elumHEg4BFvaMNFypVD7WV MaxJRrD6KxHEXsUR4eggm9 SJL9HZgpBNHxNnU2INZocQ BtAQAtgHmbSWjju562BPT1 DxXcZB4bY7Mev8L1mJ2udR RtLYZdyBRfIrMqKUOssw8f nLFmNTmyl7FhMJD1beG3wJ RqlSTaKUIiOJ86Ncghk0Lm SsrrJHJ0GKVsrhDcd5Uhu4 ywHsPxyeQgV6ztK3WbJUBk JWVlAPPqWqIfltUpp7Vrx0 YomUKmgFv6i1cfZJVdIAKk cDfka4buHPG3RVWrR2R5wS Nho7mxWMjuIJErxEY4rgW0 XRUxlIMlX1SywN1tFCZdSD 8uzei6e5nvYHO2JUlnZLSa HrH8oeS6HRZsxBHfLUEecK ncTCiyu316ZYZ0ZvMtTESk e1RlV8XpkWbvL17mdPksB5 9pFNWjzRuiaA3zlPeshV8s ZjBcZnMyNFxxbFxwbGFpbl xmMVxmczIwXGxhbmcxMDMz SXlhZ2ntZpXvBDYutZbzTL rdm9BfLHUgHUGpCbcpweHm XHBhciBJIGhhdmUgcGVyc2 9uYWxseSByZXZpZXdlZCBh rZpkc0MgF4khIY5eD1OndU LxghBsddGlEYboXNBrt6g5 zNZvgYcqc0BrdWJqAS14cu BqSWHuIKX6VKRll2opJZ31 qvnyUeEkaH81ylWulgQwBN Qsp9glC4njkVCrf9Iod9Em inInVRcrg4QsUV7rmLYnha gymWF1ZWFjlVEmbsKbuuW8 wSxcXDLsoA9tgY2wzAyxbL 7oLlOfPgNpABqvGQ1yEIPd M4sruIJzCJOmFVWqJ0xyEt JzrX0hpWdaXkueegY1EYUg cn19 Clinical Information (test code = [id number]) Shivani Schuler is a 47 year old female with IDA1. Gastric polyp x 6 r/o adenoma2.Duodenal Bx, r/o Celiac disease 3. Gastric Bx r/o HPylori Gross Description (test code = [id number]) d3zraQXjINLlePCLOSV4KT MvHE1coJaykQp0yQtfACMh pfW6gBEvNCerd8uaPPO1u8 bqtpHIZtfwTQXoJU5nYUyq DUYrST2qCtUlGVJmKkOzJF BhcGVydzEyMjQwXHBhcGVy ySB8MASfKX7yaalgABznNN foAABhwzG2FPFpgJPpQ5Ls BLXzEI1oonftDOY4MMDKTx ctKa5mfYRlwDraDiCoMtQi YXJzZXQwXGZuaWwgQXJpYW s0hY6XQcnxTVT7YMLHQace SvhiuVsdx4CkmBSaWJFzBD xcaWQgNTEwMDAgXFxkYiBP AuWzLyO5Jjh5CUL1TmC6QC j2YCUKKXQjToabKVH0VvC6 WZh6ISTsRS3aVUnnsQJgWK gsEutoSJzyY224AZcmDLQj B7DrF7XsIOzhRpFiTObgTF YqCQYkIIghTTZyJ8XUGBOe SJH4AsCcVLZfSRy6CXuhD9 XIWSZxSLWzGjS2IYArWkC8 WVu2PVZAZk8nEVfwVpNpTU m3LBX6GVl2HiXuKEQjKfPn KKVtINJtTFxbmKLfHD8jgW smBVWvJM2OGGOtGMeoCKTo HzKqP3XDK6yQAI4jMIrmqR JjaFxmczIyXHBhciANClxw XXPqZF0JUJMvIKltGAo7th CqQYSzLuFyPCWwI82hm1KE o5ScGM1EBDu1voTbjwacqY 0kGZGqpyQbOWrRvKSxeQ0e wzTZGOmgJMOcL9VgnfOfAY plYDZkdc1zbYmgKFhtUfEk bGVkIHdpdGggdGhlIHBhdG miowBaO1J6ujGzIU9nTPHF YPXaeY8lYRVhAEOve0NkgO LlvHtxG2LteCFqSkCqi5g1 pSY2WGJamwCtNYHthHTvQP Fovp8cAWopPdLgL1W0YEEu JSBbx73wpOW9esUcRaWpoO n4pQWcRWS6UV2thXdxlnWy d6p8gB4vYPAqa3M8DTFao1 A7CZAntnUprNKnbMNbBFMa BG0tadAmKG53VNPhPCyqXP gaQVY0SBP9LZLsgBHmu7mw oltiVh1uUIzyXX7tGYviVS 63DWSaBAizYYElI7RcG8Y8 LIbgFCGjEARbdPArqJ1asn BxjsRzuTj4HXGoVCL8gKZg nNsyKFPmLvyqlOI8QAWhJj IusqAzs8RjzUo1lAEiOGtz OUNwzS0eiC4gNBDeBPWhwv DAHlskTJTtPHmri5MtHEfa cGljWHNhMzAgDQpcZXBpY0 2jm5GRa0Xty1xbnXocz1Bg dIBhXO7heKOwGT6Cu6zuML FptKVmTPJ6GSsgo9bkQJvb BJW5AFToVbXrWGFcNS8BCo XkNQgcFTb5HJkyKRh0YCh4 LB5LAbFpAOYgJzr2XaC7Uc HfDVf2MQqrUU6PMSW3WKHt KNHvJVkiJWU6RMMeZWh0DL IgXFxzcyAzIFxcZmwgXFxu H43hnACeWPyeOtUfNFwilZ fkQWUvCTS0NB9SBBFsFpRi W5GSB8mBOB9kJeyjymJxYM NygeLTAjioDMEuVH4TFFIv OAnuODk7jsFsQOOxTmMkWY WyT16fh2MEl4JcNQ0PCPz6 krOwfkcroR8mCOGcjoBwq2 IzMFxlcGljWHNiMzAgDQpT bFWwmV5jbvBVUOpvNGIfI6 ZyvkLdRQqxQLWusp3mxZen IGxhYmVsbGVkIHdpdGggdG nwGKWqhMffloGfZ8U4ykOw AL2uLTVONIPhfX0xSARvXH WoXRZzVKYfdV7eYXX0j7Qf efBtUFJYAGMqmPexDE91kN BjZWxpYWMgZGlzZWFzZSBh ljBxloNdp47mwuFqs8YmFM 7hbHkqACdFGLbxVwKeUQ9c KGVwlzUbl3NaGT2rRNNhaT UtNHIrelfujLUaHNh3zDOi CJDcJcPxcGkpc1MdISOhDL ubFF44zeDoIQ1nCNrcCT5r IVzrQQ7sLDWqWIMqDZMqIl OzuMAaJrYigYZyFgPdG91f AoHBuRHkq3UaE9kqQS7zdN QzUojhxIEaQSUomBbdn0Na xZMaZVZca8CjlEBkQNhkUB 8sKGN4Kt9moAFnOKHkweJ0 y3ZtOZhjCVBuTktwOGMvIW pgt2TgZRMpwJXOv6RiZB0L XHBhciANClxzYTMwXGVwaW KDc1OjEXJCJbgwhMgjDrPu zVCnLnG8LDAlgNExFPJ6CW 5aiUhyKFMaXQl3XZzrDJXm T0YsF8PgNEujWrRtNPvnFU QxZIVhQPptJOAcQ1FFDVEp BEM3EjTqDKSdBPx3BRcsK9 GUYBOzQWOkSeR7BKW6GzX6 QEn5NOGWIp7eGUtaNaUfIS EsBaT9HRl5WaElAFXaUtLp GMLuGBOqSAwcgHXvZL2irQ apKJHvBYAaPBM5LAJftMWY o0FtAHJdAYhaYsHjIWDIMG XZKD7EEhODIZDhIuJnmCKj ST4NOZJscpCtGAklaZqnlS 0whEWpU6qpYoYaXcqmvTle TmVzdERvYzEgDQpcbHRycG FyXGxpbjBccmluMFxzYjMw HPUqdEBNd9AfKTVMIeAnAI NpbWVuIEMgaXMgcmVjZWl2 CVPaxP8cBw1hzHBxqI1ikU TtXOukFVQui2e3fVL9kLHy gNB5bSFkyOhpQnMjPX2ldK QzEOHKYM48bNHqsfHhEXLr mQ6zSITtDNAaSDZ9jglxEP UMZAZ5jICcr8D0EApxYFY5 cT2ekZwkQgBsR5M7QYGdLR Peb69sfST4fzPeHdNpHRMn du5hsX4gRGchgtTycAfskg Okt9P2LCEod2F9VQEmczGi bUQllNHpPDXsVyH6VCQcWl K8VGXsPUCtuNLdAPDrQA3p VGhlIHNwZWNpbWVuIGlzIG ZvfLVbatLhCCJnmz26I3yu GWYwfC8rp1plObYaGIIuLA YnqYHutJD0VPNssP6jgZ03 jaKprsUAJH9qjJDyVN6MWV NiMFxlcGljWHNiMCANClxw SALgXCygp0XsZNyvdVumAI HpXbZfDFhIkNogIRPMV4az pAJyTIukHUIUFJuXG8MIRJ 7SUNAedUTPTEZ6QY5yMGwv UOFcF3VoJ4NsfrO5w7gdiP ibf3MwxPSjYF7ieUAtAP8M XHBhcmQgDQp9 Disclaimer (test code = [id number]) d4lgyXNgDIKxe4tdJGOpqG FuZzEwMzNcZnRuYmpcdWMx WKmdnuRoTNxcz1AiT4RxGa AwMFxhbnNpXGRlZmxhbmcx HDZyGXL2clMkYRTwHAbxIE QkXUwdZf6rlWPvoEglElDz BTZkg2sqtdWCQYygVrUwU6 26OBFwOMxft9eob9ByZINh fLYty4J3RRPPxczvdRz7gC jxJ07ur5V4WrodY0raCOKs ERZhC7MjFG8fVVQqGsf0IM Y3LYG3JQTiQWYzF2RcGK5y NBQwfEZmHKj9u8yhyTaxJW TeJDP5n6djQSzcdtZyBL4d ae7lqVr2t8cvnaIkQLXfIF WjpTYMUAInG3FvwNhfUu5z wIe6rJyuCharDZC9Fjb7VF 7dfp02rhi7bPquOAJnzcaz MvP6OOgyDXMxsgtjSPi8XV ndNWFtvOL6WPAllOElH8Yh TARaHN2pbvz0BUN7STftTX CpPpB2RZBjcCLiHLFgwFay LZayo883ZEN6KgAhMC4zX0 Src0J9sX3apGIgZBLseNPm MkVrLUCknh5onZMtETyje6 ZnJFH8dyS2tQKbxZYtPYTa PO07Prapr6RhGggzj0JrX5 5ogCS5VVuxg6urWK3aRsG9 gwOrMDyoo4mjfQ3rGfQ5PA mbIF8qII7lQEAnzG1gwkfi XHBnYnJkcmhlYWRccGdicm LoUe7roJecHKJ5DVxtA0or dP7fGwL2PTgsI8kncB7rPD b8QDjcePJ7KOLdiC2vZJ9x fhvxb7zkLUlcXGacMFVmbl D9okB5RIDavGKgB4IlrF7l TWRgPM0gtjgkx0leHDA6UP sbUYCzACA0PgXzCDQvg2Hu agl3ZiQji8FfbBYrHWkiF5 9kf772EJTooeTaJ2hxuGVv fehgyIOxrwjrLOmokyH8NY XzevPvp6JwBOCiTSB4OHhv VUodiSIaPWHvsSxii5nkK9 RscGFyXHBsYWluXGYxXGZz MjBcbGFuZzEwMzNcaGljaF igGMjzZkVfGOMfFQzlK4lt SoKnJ7VvRACqDrGdzVDyQ2 ggVGhpcyByZXBvcnQgbWF5 CVqlA6p3NBJhrpUplFs8vq NwZnQwOCErVZP2UZkwsTQn KOWpf0MkvjgdtQFcNs2uzW AeEZEsrT3vUKQsCJGxEXdk OR5ogEs2TTVTpVXywLYcCj XSHMBfRY72nyOjDMMAhqhc t2T2FHumVGNaf8VbfEJgJ5 zlq0HmHSCji48nEF4hn5J6 p4nwXGW8TQ4pm2ToEYKxbK TciAYwMZTvk0Obxwgor2Dy EVMhkdRgy3TnXYXhmsLwoG XmAZRgaaTorb2yokFjHCPi MHOpW7MblhxuyMhdrcDgJM Srvv3jolMpRCN4NRNXDGCf OYIku0GarO6qsNQNILS3iJ Sjwg0mkoQCmAZwEEKtvs82 ZLOyXW9uT5blFYLgIMIffr QxrQIxx0PgSCWnoUS5oZMb BS0QBbOPo96zORPqFBRHky JvXVKrqQrueMD8uhE3vO5b IChGREEpLlx+IFRoZSBGRE UtDO1bwaEct0YwtvQneVtf ZBLquEXjc3SlpVNit8SyaH aah0GcfRLxnXCkWZ9gSHGg clxwYXIgVVRNQiBMYWJvcm P4y8OiFDDyRXSkTKS1iXnr vbv8JNFjyQ6qOAKfG8saus ulEKfbAYFzr7JvxR3kyHHO eLOfx9DqrOVmsJSBsMTkDS 2zmbYlPNpJJIwIORP4pfLq WENko9XdCHuhD5xoM61iwC krqKe0sYF1QVF7vR6pNko+ IFxwYXJccGFyIEFwcHJvcH KlNAFleWmgexFuF4MoqqOy cX9seKZhpyRrSX4yIP4rW6 M9cINpMMWwuuSbp6lsGHlw dmUgYmVlbiByZXZpZXdlZC Jia5MdZMcbOYU5LYcxsvZy bmNsdWRpbmcgSCZFLCBTcG UxsBHzOES3NPzuufEwqeGl GZ2kvD1lxAswzE0nvAPomE L6qvqhJDIjICJukOriDMXv KD3agMonqG7aMdNxTqByST imFV8bDHRvC9cafSUzXCUh QUUrD4hrZiFmbK6cpBkvRH xjZjJcZnMyMFxwYXJccGFy XHBsYWluXGYxXGZzMjBcbG FuZzEwMzNcaGljaFxmMVxk OkBdDJQwSNowG4tzGfNbG2 ImMRPpTeAqlNVrW6hvHJeb KVR9WKAeRK9bxTDtNL29xN Kxo6xsAEokeNdzvb7hY25h qSDlGWcqsKrpCGXtn87ax5 HaZSLuatPbob5gNCXrgtU3 wU4aYINnhIwaYIAxoZKeVS Quw2XuDKthtLJalyClHNiz TUIxIJYmrGZxqqX8yyDqov ZyfyCxNXWrtFkaPQFme2Wf JZYrVAovv3Gqwa4smSMtNO PbdbFEhHsfgFEdiW6hF6Ys KZKpYSRmhm6jBBVkpK1nXU dzl6OsrbyiJABfZSPnSARs xaVmsc9mAKDuiFZQHM8JTU dguTSpa7BgchCoM2mQXDB9 NUQwNjYwMjgxKSBleGNlcH KyXTJzsf99GHKfxA6klIrg ILLtfL5xdN6itIzitZ5mIj AeUbCdMNntNW5yYTQsV7fx yQGeFHVtXOWzX2vhZnIogD 9jaFxmMVxjZjJcZnMyMFxw YXJ9fQ== Embedded Images (test code = [id number]) [facility] [id number] 19:23:05* Test Item Value Reference Range Interpretation Comme nts Case Report (test code = [id number]) Surgical Pathology ?Case: [id number] ? Authorizing Provider: ?Dominic Keita MD ? [...] HPylori ? Final Diagnosis (test code = [id number]) a3zckCHyCCRgj3hiJOTwqO FuZzEwMzNcZnRuYmpcdWMx NTaghkAbYUjuqVsxHDC2JA SsPV5wkUepgOl6qOlgKKHz quH5bAGaSEipy0mcSFS8y7 tyzjzfOKVjQWklGi8bhIUt oCpcBrCcIROjFBe1gL77TT BsjR7noJQfOTy5QDDnlNOy eaTfBuAcEHVqwAGrpHL5QR SiNB4suuiaQNskPRmoUZOg ruW8ZCXuqMEbL7NxAWIqRA 7mttwrUFF9RUfrHMDrYBZ1 KwSrTNPjt1Qonpk9WtGxtH FyZFxwbGFpblxmczIwXHBh csQSAmZJLE4QFFXTFXWWK1 jMQXZLYI4EKHNNDxoebLMg AYRcKDUjUGZRLF3DMROhO1 fCZoEkYA5RIXZbBUPlpEJj YXLbtfRDSfAJOA1CDU3DIA wgQklPUFNZOlxwYXIgICAg RUNgUTtKI9BEJDLxESEMX4 XREYrNRUooTu2rVBQFKR4V S6lCM5ZPOYKNFM4IFJbrVF LhOYCvDKVjVE3FSSbhEFPI YD7KQIZQVPANYFlEVKHMVK ZBEGjYLEOCY4WJQDcFGBFu aqoyOVAbQj6kV3ZVOVPLMX wgQklPUFNZOlxwYXIgICAg ERVoVAFVD1MBKoIXHZ2MV9 4ZGIMLSBMRAL9CYWSRYSqU EW1TKNWHAWOZMJOKI0DprJ FyICAgICAgLSBOTyBFVklE FT4VYOEXOgCMRGpQTVUkKF lTRUFTRVxwYXIgICAgICAt QF1ETGgtLIVLIN8QNTSECk dBTklTTVMgSURFTlRJRklF GUSUYRESLY7BRg0AOYHCFm xwYXJccGFyfXtccnRmMVxz l8KgA5MjWeMbRUkayxNiBA WaMsndecqcNQXvPXC1cdCs FRPgSHigRAFbGWgzCk6vnT BhuKzjWlZfMVObr3ppvvEG WSmaCdPcS549ADLbWAwmt3 exd7AtDCGnxEUfo6K0GCDI vvxjpRd4s8zjRjChIfI7jC RgAGhzH3ajfbWueKLuE3Gr mFAxhHz8wQbwL40dc4Q8Er gwA9ycMGZhPDCtL1JzTJ9f UUOjGoq5PGC1QEJ3QQHhGS OsL7FnPJ2hPMIdvXPiFQx1 o2cewBdxKMUmFNP5r3rtDW dploQ4TH7bup1zwIi3d4wx czEgRGVmYXVsdCBQYXJhZ3 DxnVahVe8bhEe4zNimBokc HNP5Www2GE5vtc43tvm8wN iwNRRdmcpzYnB4PVdvHKQi qdivIZp2AZiuAXMgsBO9MT DgpMOlO3StADAtWN9wuex2 FIX6WNveHYKvSlL8TSXhiO JtHOZzbDqzELttl209MWJ9 AiNyOC3nP3Uam4B5lO4ppO RiKTUohZSrKjTpAEUezi3a oQYsLYjwz9WyXOX4jrN5dM NrkJNbYYEjQI10Xkawc1Wu QdfwCAS9WJRpzgEmc4Eul8 yzRfExxxTkV9ywF4ZlSBOy RLNpJYBdRcLrlxIzp1Zre4 NpvWFriIo4l8koNJJaNOPn sDwnf5mtDVP2JYFwZ4K5lQ Voh7lcOIlnUSPncZO0weO6 WHAvrCMqT7QhnM4vBLLfRO 1jfic0m4siAXR4YAwoGTYn SaT4lfA5LCCstDPoXSXxxQ rkKAttw026XIV3DqLbTNCh g0PaC5HqmVzcX02doMyuO8 0kCAFtwTwvtA6exAambV5f ZjBcZnMyNFxxbFxwbGFpbl xmMVxmczIwXGxhbmcxMDMz YOcjJ4stRgWvFXGzdJyzQU suk8PoNRNxOZUnKrcuuoAy XHBhciBJIGhhdmUgcGVyc2 9uYWxseSByZXZpZXdlZCBh nSagw8VbB1ysHE4wX5AxrZ RjisQjboUjDEotPUCes7e2 bERnrRtki8HetWGgTA73uo OhDPEiMTD9XXByj4xqVA19 koqfNeBkdA17plIfabKnVW Hhh4uwL8dgvKHmz4Biz6Jj mlUoHAopn0VjBL1epVSjtp nfbJK0YJKoaTLpshZrwkN8 fLxvVFScgL2xiF3icEbwbE 6sYsZvIsNqRBfvTX0qIJAm P5mfbGPgNKLtGKDhI4wvGi VpqQ3lfRerUfcvuaH0SNEc cn19 Clinical Information (test code = [id number]) Shivani Schuler is a 47 year old female with IDA1. Gastric polyp x 6 r/o adenoma2.Duodenal Bx, r/o Celiac disease 3. Gastric Bx r/o HPylori Gross Description (test code = [id number]) u4ckmSVpOOMcvSZVPFR0ZL XuHQ5otWoivZt2jVdwOZFb giC5mJFoGDefy7woKXF6o4 uajoVMMkujMGRxTE3vASde MDNtFD3xHxVoACCdFfZxOW BhcGVydzEyMjQwXHBhcGVy pMV5PPBfKA6esjawNStmDD jcVAVylfH5NUXkwWBmB4Py VTZzZP5teemoNRQ4COXGZy kiMz9prZTjqTbhOtSdQnGz YXJzZXQwXGZuaWwgQXJpYW x1dQ4ZYrmhLGC3DNEIFdpa PafusHklh4TfuYDeTRLbEH xcaWQgNTEwMDAgXFxkYiBP XjLvEqR6Sfm0KMF2RmR4BK y5JCFPOSUfFdlxLRD7QeV9 UKw4FDAaBV2hASyfqJGyNW coHlrjXBibR000MVetMJWn P1KxM9ThYAeaSxRmFNngZS PdAWQnXEflUDVkV0QOXHFt XBV1BbRiMNMjUWw0JBvtV0 JXHGUbIJFdQyA7SXQlEvU1 PZt5RMDCTd0sTFbvXgAwIL c9PCL1YAq9UmNeYTSgFqEv JROmELGzQUfqyTGgTI2jsW wiAYHwOG0CSDNlRCzvKUCd AdKlC4GYU1eBIF5lILkpzJ JjaFxmczIyXHBhciANClxw GYMcXU1SHEUwIXjdNVv5ok XzAEZlBgKbDEMhL37ei5PN g3BiAX7XHUi1cqRvpyzkwE 6nRXIqhwVnCNwAoJQytV8l qaXFRXddPVPdA7IkizGpRX cfKBXnek9fiYmjFEazYxVr bGVkIHdpdGggdGhlIHBhdG vukgIlA6H0qoJpIU1eSEDE JGHbyJ9tZNSeGRJde2UxxN QovFukF0CtnRAgFjXkj6w3 uIB8PTKjllZbWGXudRVnNS Vufu6wVOmdGlFuP9Z6TWTm LGLsu13nrYG9swBiQhKfzS l6fTJzVTS7XM2gwFeypfWt b7x3mD9oVRQmo3D8ISCuj9 K5SYWnpbNzbGOqpCDmVHFw EK9mtxUzEA14CVRmZBcbLG ruRJQ6XDG6BIEdrDSzc1yo ipsoRj1qODxcXP6qTXwkHD 75NLVsNSvbJZBnM3FnF4S9 QBwxLZPcRMShlYLrsC7eny DnnfDafSu8XWXjJRZ2cJAu wXmoBNIqHtflnER8UFTeQk OnvaPdv5GhxGb7tCWlNYfl UGTqgM0ioF4yUBIjCLBwpa MLPuivBDCeONpxt5YsNHby cGljWHNhMzAgDQpcZXBpY0 5xs3TYe2Arn3jwqGrfp9Ze dKVwPK0ymMUpTB5Qz4ybSM EglPCmNYB3SNxtt6hgUPuh NCO6FDOzAuDsHCNxGG6VUu LcVCkyNDu4DJmtLIq8UZt9 YU9RUbYtMEOeKnp5LfO4Xj FuQHl1UNafCK7MODP3HDHc CJZhXQqbGIJ1WKUvONf7TZ IgXFxzcyAzIFxcZmwgXFxu A11vrAFpFAcuGuHtHUsxtB mgHWBnZGJ5ZW3LATMgMhXi N5LCH9wTSU9kZxnkljTlDE VcpwUGSckaDADqXP0AQIHe GBvfHSv3tuMcVNEcTvHzUN CjA50sl6FGp6HkVW2CVQm6 bfJyyrvmaW9rVPLhqpFfi3 IzMFxlcGljWHNiMzAgDQpT uPMzvJ3etdROTSrxMSUbJ1 TkczAbBRefHANusb7yoLiw IGxhYmVsbGVkIHdpdGggdG wiVZNfkBprboZaV4D1oqXk QV7eBXUWIPGfeD7pYRFhRE EgHUVkWHQmbK6zXED7j7Xt haYbMHTEHYQbsXepOJ26yQ BjZWxpYWMgZGlzZWFzZSBh tlZovtRnw11bfmMtc6QcJG 0rfLkoELsGMLvsPiHxPJ8n KXIszmKid4HxOF8vTZOubI DgFBYfeoajmAYfIRe5vMVi ZKQjBcYcuCpxz0TjIJGhBW dyCQ18zvDfPM0qPChvAV4g USjnIL9hIYCeNNMiNXKyJn XdaCUyVgLnpUCaKsWmH51l DsNTcXTgv5QaY3zhVY4isE SzDsoklIQzJUNtoDivd8Vi dKTnEEDvz7MczDXhFUepWZ 1pHQM1Ll1wfCBbQHJpsnO5 t2IpRAyzQROaYdozBHEzMP yac8PqIAItvJZRd2BeZG4Q XHBhciANClxzYTMwXGVwaW UHn4ErWIFXKtmydApeUxOc qFKuWgK1MOUlkBWxOHA8PE 4kvTrxKQOpDQk6VCclBVZw W9PmK2OkCLctVuWwPJqrZW MtJINsDLetLAEsA1CQTNNr EFI3AxAlHDUvGBq5ZDkiX9 NRBWSmBPXvRiY3ZTP1DxH0 HCj4EEPZEo6oBXfmTkSlRU LfWgE2MNf3KcQtAZPfDrGf QBXmNVZwACbguBDtOE4dlZ zoENBhIYEpZVU5ISXnhUTB c2IdHKVfRQpgGlIyKMCOLQ WIEF6FIvBXQLAzGtIjkAJu HP9FOZRkueFjKCqalQglzM 3dkGDrJ2arSlAlTqjzeLez TmVzdERvYzEgDQpcbHRycG FyXGxpbjBccmluMFxzYjMw FRKrsMGBq9QlIDHZScMgHD NpbWVuIEMgaXMgcmVjZWl2 NCGwbF3xHr9poIZdcM6geX AwLYwzSNCcj7v0xOK5lNMg lRA9yTHsqLwlLlVxVF6wnQ VpVYOIQK44iCGrbmNpRBSa eW3nMDNdYQFcIQA8ypmoSL GBDHQ2aPJqt1F7XVehBAD0 yZ1kdZckKwZtM3D7HZZlOI Ocp76xoNJ9dyBrYfMlSTWm wy6mqU8oLQcbwrGavUzudv Yfa9Z7HBDrl7B6ZGNfgpBc zSQrtFPiFPPfHdA8HHTyHc L1ENFiFCMpnWWhSOMkYX2d VGhlIHNwZWNpbWVuIGlzIG GgzWDqlaJwUJCvce08N3hu VXRodV0vr8iaWvWdNZOmBW YwiSKubKM6ZHLlqD8yiQ22 esTigjVJZX6vkPKaPD2FLV NiMFxlcGljWHNiMCANClxw VHIgIEvdy8PzZDnneTkmTI DlHxSwFUgRhLksHWQMG8cg zQKhVXllAGLIBUsWB5TKGA 8HXYAlpUEOBOW9WD0sJYks METaJ0McO0LzqjN8l2kjdF cky7CvlKBjUS1hrAYlVD7V XHBhcmQgDQp9 Disclaimer (test code = [id number]) q2zpjHLtNDXyg0ixFTVcsE FuZzEwMzNcZnRuYmpcdWMx MTekhxIhSSdzu2ZcT6QvGv AwMFxhbnNpXGRlZmxhbmcx COAqNBB8zyVnGZPyHAjxYJ HmPOuiJf2sySBehDhhWxCd VRFfa2lumcNYYCzmUnDkQ7 63GGBdPNylt9mwn9WtKQYr jUOom2D5UCVZyreswSn0vG ksR49yp2G0VddwV5phWJDi OXXxM4ItTN7zOJRmZxc9PP U4GBB8JOLbBLCqY5GxUR4d YXOdcZBhNTg5z6zsvPzwAV YuLBL2z4oxOVrnbqQwNZ6j fb0fqJt7i0jbfhYyAJTiYE JzpPHJOEDqE5VgzQqwGe0o gAx5jBilUfpeHGB8Apw6JK 7ubg58iga4xCppTMZgqrmx GoQ1SEfbIJGodglsOKv4AI kcLAEslDJ9JBBgqSXyR2Xf TMPeKW1ksrj4IWD3BEzgFZ QkVgR4ZRQazPPgZNMjeTps XHhka949GIA0SuWwEX1fV7 Ebf8F5zK8lhOPkWSZeiQSz YnGsIISgez1vxUDyKAyvt9 TtUNT4saE3hZOblGFrTWRr SS30Scrgj0SpZophn7IwR6 9enKZ9FRkzn3ovGR7lJkJ0 kcArEQdoi9xkiR5vFtT6TZ uyYN3xSR1uXQUzrR3xajwu XHBnYnJkcmhlYWRccGdicm ExLl5bbSliVDA6KDtvU3un sN0nWsK1ACmcT6sinR0tWL i3UZqmtHV6QIOtyS6jND2z eubvl5jeJIsxNTjbMJBgto R8nzT1WOBfgDSpV2AdaP2b DWZwPR2pgmeho0lqVJZ8IK nsQHLfEJN3HjBqDJZcm4Rq bep0PvTzq4VnfVWaXGxlP1 6qs147IOAbdcGeG0fjgSCy tlkebZCcvrsdIHqzuyG3IW CapsDlf7GmEAHnLUX8DWar EYffjMUaZLKxqQueh9giX4 RscGFyXHBsYWluXGYxXGZz MjBcbGFuZzEwMzNcaGljaF jcAWgpWwCySQWfSZkoA1tq WeVkF4McDTFhXqUocHMtO2 ggVGhpcyByZXBvcnQgbWF5 ZMrhL6f6IZAmsjQlyRx5gd YwKeRqOCFzDIO9UWxnxDWh FLNgl5CqslczkHDaIm5lsG NmHTXguG1dHYHfSYQaYUfm RM1shMv9HULLdSMxyIIeWj CBZEJjZQ35ylNsRPIEejfr x3C4WZxrMOMqn1LwxMIpF5 vsi5SnOSOnu22eNZ3ki7I6 b4wvUCR2BB5vl6FqBBKzyH JhcIZsRPXgi3Kwhbdan4Wp XTWnlmAek9PpBBDqjcIwuY XzWYOqqcFbvo1jfyHnWVYh PAJpW9XtpzvwjZbvqoRyDE Ciew4saqFyXWR8IISFMKYx MWAlp7OvkC6ocCGNYCP4oK Hbdc7jboXSkRLnDWXayb82 AQAtLN1pQ6yhVMQnSVNqcy VrrFGex8JrMNMsaGX5yTPj EQ4OSjBFk36hBPBqAGTOgz DeYEUgnDuxwIC0uzX4kJ8p IChGREEpLlx+IFRoZSBGRE WvRT0yzwNux4WdfaWwuPtu IPAuyEWkt4JaqNLmj3FplV qel6SbnFCshCZuDW4tTQZc clxwYXIgVVRNQiBMYWJvcm K4j1JzTLBgOEXzMNZ6zWix ari0WNKexQ4nSJQtT4ihsr paHGukJVWer2NayJ3qcIDZ zOJyt4SpjTMrjLOBeOSeND 1jpuJiHGtAAEpEBKE2acAu TYGfn3DkZMotD0dgD80baX hciWh7dIR7INF2bU7kIat+ IFxwYXJccGFyIEFwcHJvcH RjCFUwoWfhrpEcW3VxmeVx sC0ozXUqjoZlIN8uAU0dL5 H2uHTrQUIsftPvr7nwYMgi dmUgYmVlbiByZXZpZXdlZC Iom1WeJVyvGCS0WQxeajDn bmNsdWRpbmcgSCZFLCBTcG LmlSCnANB4OExnttFqjxVr IT3vdI7vsJwvkW0qhWOefP V2ammnUFYzCOBmwZgpXKGs UG4zqZihyU2lZjHcYuLfEF dwIH9hAWZfC9oekCMtZJFm YATrV8ugPaImqT6wvSsqXT xjZjJcZnMyMFxwYXJccGFy XHBsYWluXGYxXGZzMjBcbG FuZzEwMzNcaGljaFxmMVxk FhIhBOGeWDefK0thDnKbI0 GpNEApKaLffEUgR9vhXSwy IXV8NDOmZE2qlFLcJB42lR Bxr9yzXLhjqOjjra4nX12u pJMxMSlleNmvCJKys22hq0 YhROGlwnGzin7zHCCkkwF7 rK5eVABibKihDNSqyKPpMP Kyi4OvPUryvJFkiqEwOAtv HPEoUKVitNQehsU7pfSnog MyeyDeNLUxlLygCIPvw8Ug APFyTQrpf4Iygm4peQHeEQ KedbVFyFwjqHTyhK8vX6Zu AFMbNPNcbi3bXLYshU5hSK lga8EbzgazGCVgRJByNBRv acOxwm9kWUPigAHFIQ7ZZF rkgWYpp8KtgqMuA1iNMTS1 NUQwNjYwMjgxKSBleGNlcH FiJMUawk51BWAhbK7hiFfv IKErkP1khV4xaCxblF8tNn VsYgQwMJnyWV0ePZNsM5ky sPRzAICwHSKvM9jzQrDduX 9jaFxmMVxjZjJcZnMyMFxw YXJ9fQ== Embedded Images (test code = [id number]) [facility] [id number] 19:23:05* Test Item Value Reference Range Interpretation Comme nts Case Report (test code = [id number]) Surgical Pathology ?Case: [id number] ? Authorizing Provider: ?Dominic Keita MD ? [...] HPylori ? Final Diagnosis (test code = [id number]) j1ckpARyFPVms5hxMITzgO FuZzEwMzNcZnRuYmpcdWMx HGsikgQdOBwcdWqnFQB0CY VlDS8skOypwDj3aNwsPDLd npS9jFAhHThzt3roWFJ6d9 lczaccYQPjGKtsFx6rmKTi hSruEwXzBVPwQFb1oL14RV YxiG2nrXErSKr1TKWvhNWw hkOaVpNxGUQmgZAahNM8LE SxAY7whqugBAakUSfkDIXc urI3SRFnzYGsX6ZlOUVsNZ 7bgvplPTY4OMpkJQVqMRF1 BxQqIVQqn2Tdrai8VeAfrR FyZFxwbGFpblxmczIwXHBh zxRAJpVLUA2HUNRXUDERQ8 wJVWNQPX2VJOCBVegceJBo QRGqMDPxIEISCU5ADWWiC0 dWFrUwDR6OKAWeRTEbuNGu YCMwlaVAZnGHRE9FOZ0IEX wgQklPUFNZOlxwYXIgICAg HOVaEDlIM3XSIDSkNMCEQ6 SKATuIAVviYk8vZKXDUA3Q Y6rIJ0CPLYPOPY0CTYvwEU EwBORqQVDdXA3RPDxaOGOI XJ4QNTVECJNVMLuZDRTPNM KOEHxVAAMAB0YMUObOWJMs mwlkXEDyWo9mD7AJHQENAB wgQklPUFNZOlxwYXIgICAg UHQvJFTFU6SEGgAIYZ8BL1 2UYFPCZMLJKX5QAYEWCEbM TM7XCFCPZCVTVVGLO1BruW FyICAgICAgLSBOTyBFVklE LE2ZORTIZfFUJHeKDSCjFT lTRUFTRVxwYXIgICAgICAt BS2OGPesDMVARN5IVEGEVj dBTklTTVMgSURFTlRJRklF UWIMPOPUMN9MAh1OOHHMKv xwYXJccGFyfXtccnRmMVxz i2QrY5WrGyGkVWnunkXrHB MqHvjqwhwcCYRjJTD2zoUc BADeYDtpSQWmSMnfDs2fpZ ZycTpoLlVhSCIob2ucurDA BRnuTzJuY115VGUyCUcjh8 wwf3FjOXOrvJHqk7Y8SZNU qddxaOr8l0isVqQzQgM4vU KxYAivX3feshXmcPIcO4Nr kBDwhXf3hDrqE32jv9X4Qj daH0pdZNBaZTFbU8EtDV0o HHJwWle2KBZ2ZFH0AWZzBW MxS8SqHP5xJFPiuEGwVSb6 q0rncUziTXSzTYF4i4hoPA tvvlK7TE9qnm5ksKs6p5jd czEgRGVmYXVsdCBQYXJhZ3 WdjIooRy4iyRe8tMqeAqgs LCQ5Hsz0XB8xqu93dam4sR ivDSMhlxhuYmC4ISmjMKZj mcgdBGy2DYksJPOhzRL8TF PltUYcO1GcJFIwGE2nngl6 XSZ2CUdbNNHpDjD1FIUmdQ NeJOWuyGhlZQiwa719ANZ9 ArLjNA7tI4Kuo9C4fS6khS VoMKCndXGrLeUaXKWbou6c yMQuFDalb0DzFYQ6tpE7yC BicKKwLKBtFW46Euhfm0Vw JkpuLUY5HKIlkgQis3Pmh2 emPnRpgeVzW2ljS1XfPYUs PBIsHJSrCbIizqKjp9Jkx5 SmjSFnuAl1a6rmLIEpTVOs nLapt6udWRC1LDMlO1E9zG Odl5iyBZipNBApkRP5xcK1 DMFulUHuU7EdlI9pRXXlUF 4qdjj0b3vfJOO2WHynUDXn ScM5chZ6WRFpgSDmZMHdhB fkLAghx491WTE5XaSyLGHr f8ZcE8MzpBpoX75fyWvgT9 1dDYUcbIzlbO6kaPqroO3s ZjBcZnMyNFxxbFxwbGFpbl xmMVxmczIwXGxhbmcxMDMz YMvlN6clAgNfAAZggNqzLS uyv6CnDQCbLMXqIximjsKq XHBhciBJIGhhdmUgcGVyc2 9uYWxseSByZXZpZXdlZCBh cOmvn2KaZ7bkEY9hD1KztR CqfzBlxfLrJNkvMLZpq4u5 dKIueIoaa8WzqQWzTB99ue ThQKZbRKM4LEOav8jfVD05 dbtzFlFzhK69isQofsUgOO Eja9fyN9nubZHxq5Xaf5Ax uwFnYBijh6YyAU6ltCFikr iftZF0PUIqkELnvjHcrmT7 yJjzQXEwaB0faZ8qgAxtdW 1hHhZcNeXzKUhdYJ2aRHMw Z7tjrCNnLRUeHRYlS1dvGm VsuO5waXqfAqbffnK0LPDu cn19 Clinical Information (test code = [id number]) Shivani Schuler is a 47 year old female with IDA1. Gastric polyp x 6 r/o adenoma2.Duodenal Bx, r/o Celiac disease 3. Gastric Bx r/o HPylori Gross Description (test code = [id number]) w5tkcRWvDFAoiQGLJSU7VD GhBH7rgAwquHj2yGcyCRBl amP4vLFjYQmqf0ylRMZ8h9 xthiGOYqcpBXKjGB9tEKtf KETmTC6vWsNiWWXlUfKyUL BhcGVydzEyMjQwXHBhcGVy nUA4ZRTqVV8zgzewGUrvKP phIKUkegV4IDTgrXIlO7Jb MCIuAE3tyakdKQB4CTFYJm nwVx9juMTjbIsuGeIkAoPd YXJzZXQwXGZuaWwgQXJpYW f1dA0ROlldGTM9OQYGXzcz GnjviNkid8JeuHIpVFKmKJ xcaWQgNTEwMDAgXFxkYiBP GgHcIpP4Ami7DJA8ZnH6IA n6TJNLQRAfCtjrOLX4LvN0 UOq8CUHhKJ8sBUfklVVvDC atTmxgBTxrU478OVhhRPMj I4PwP3KiZGonMsFkIRiiNL NvOMTkZScqPJGnK3NUGAWv YEI8VdJaKTUqUDf3CKarY9 PLIUXmJCMvTlT3GSVvSgO2 DPk3ILEINh8cRVlqQxSfUK q3IUD6BZq7IyOvTEXkZyWt PQOqUUXuPYxhsCVzFY3xzE etPDZhFU7UBOWyCZzrCYKp EeUxE3MMW0tXIR5wKKlofB JjaFxmczIyXHBhciANClxw GBCdUZ2OKOWtFGkeJYd7nu QcORQdUqQhQNWaG00ry7OM l0QtRS1PEYj8foXgdnamgW 5lJATlxkSfQUrSnZTunB3m quPLNWksFZWiW6BiduZoCZ ukEZEjjv1oqByrCKkrNiRx bGVkIHdpdGggdGhlIHBhdG lscrVkK7H4qaGmJZ8oDJWL GXTkmK2aJUOkTTIsr4XcvJ DpgGeiY4WbsMVsIiDzz8q0 qHM3VAIrunRpYWSucAXjPI Tjgp9cLTcyFgSrS6B6EUZf NNGnk43lyTQ8abWyFbNviB w6zAYaQXZ3HY1rlZgupyWt o6q6lC6qITOuo4M4JIMzq6 R3CGHyupEoyNCscITiJSHz HI7bnrMiNC73WNMeLUyfXM okYTD5TSH5NAXuhSAuy7ca vgsjIp7kJKhsIU2tDEsrUB 47ASUqPTriMGCyR6FqY7F2 YVcvWYRuLQKhgCRzmL8mxe XgfeDydUq7AFDcBFF8fWTh cJbnSNBbRrwogKQ7ZLLzVq JnnbEkc1JjqCa0kKQzNLlu WYRwyK0otU3zWRNnCJXyhj ZZFjbyZTBtWElkt7DhMSgs cGljWHNhMzAgDQpcZXBpY0 3zd5JRw2Lys4kjySoom0Da yXTbQI9rbCVcAS6Mo5ftLX OzzUSdYVY3YPxjy6niZMoa UTW2EDUpWrIrIYBmVB1ZSs OdAPgpPYt3JAvfJOk6XEj6 KD3MSwWyDIJrOlv4ZgX2Ms CmVAk9TKwrSV5SQXG7LINb FJPnGRoyJEL4LOOnGHn3VD IgXFxzcyAzIFxcZmwgXFxu D61ljIPvVJbrVnIkKYsyoR kkDAShMGJ1XG7MAAFmNfEv I0WFC2iWKV0rThuuhkBjDM TgbcRZAsbtLRSxDT0IEJOd FVxhDMg6iwNqWTGmQqZdWC RxP30ca0PHs5KhRD3BQZo8 ooIombhdbY5hHVKhmhHhw7 IzMFxlcGljWHNiMzAgDQpT aDMsfI4vylRQBEifQBAcL7 ArxiJzURqfBLWpcy5hdZbi IGxhYmVsbGVkIHdpdGggdG veNBWozJsqmaWvG0I7tlXn KJ0fMVSZYCQnnW1aOQWkZX ZkWCEyDWWhxT1bSSJ3e2Zx erEpQEQELLXbmDdgSV65mP BjZWxpYWMgZGlzZWFzZSBh tjZrkpJvw07zneNzq7EcXU 3baZpwNZaEKJxgAfMxWY0a AQKcguQxp5YhDX1lUBBvgG TrNIPiqldcdZGvDLj2dNJe JPQyWrIzgGcqg4UcEUGoRL wsYS99auZzCA3yUKutDM4s WJdxDD5bRALfUVUyVTLbEy XyoXBmAqUhwEQpBwFrB01z PyYUhPLpb7SyC2cuCM3ylL ZlHqnmaEHxHUUquTbuf5Oe mWOmPZAce3HhcXPeEWcbEY 0rIJI4Gh4ooBHyVLDgqjW0 x0MpYHngRNKrGkllIESrKR ixh1WgSIRvtHINp8XiTD7G XHBhciANClxzYTMwXGVwaW GWq7WpOXKVIedeuTvuLzZk sIDpZfL2JFAayJDaEIE3ZQ 0pdKupLMQfORf2OKdjJPXb E9NaS3AnWCsnFxIqEYjmYS ZsJOFkMQoiMBOtF6NDPLTv EAU9WiLqQZQnYFf1PPtxS7 EERRVtHKXnIoE1EXR7OgM0 AXy9BBWOFs9lDHaoMyGaXV HoHjZ0SNt5FgZrTNXpIgHb QMCxFSQiKSzihITvJS0zfZ aaFVOpWBCnMJA7QOQvfIFS f0EmQGCkPSmeDdPiWGHEVI HITS0QBuBINMQoRzPjpPYo WT8SYBVefmOqDEmqlWzytY 6ovQBsC4ebTbVoJdwnhAio TmVzdERvYzEgDQpcbHRycG FyXGxpbjBccmluMFxzYjMw PYFdxGBLm5NyQYQNDhAeJD NpbWVuIEMgaXMgcmVjZWl2 QSAvvL8kIm7jtHVgtY3nrK LsLJkuMIYsp3o4wGM1oNAw tCA7vCGntJjyTaGnAD1ryL XpKZEPWZ87hSQsrfCiLUTd lV6lJQYtONWbCYN7vrvsBA PIDWJ5oEOrh4F2KIokMMD5 gK4zrLtwJxEfX3U9DAYmBH Ejd10taKU2gqVjQcRwBEGf cb1ubH3iHCkapoThwTnvvo Gem1F4ANFvd9K9BZIddzZu aJDtdHScHZXlJmY3NZJyLw I3BDCdUEFtuVSxRMKuNG5h VGhlIHNwZWNpbWVuIGlzIG CpxPYlujSpEVYhyw11M8yt GFBtuZ4ep8faFwOeORTnER EstXTfpMG4DFYizU6njS70 ioRlirLWUU7zjFDhQF1DTV NiMFxlcGljWHNiMCANClxw XHInMKubb9DyMJrjzQwgDO VrRjLlVTlDfOnuSZTOO5dj yUCsZAulFSOMTFvMS4XLQI 0EFCZwrQPKRAS8IN0wRMbt XPOmK5BnP3PwbhG9h5uakA uat6KosFBsQM3hjKMnYR1X XHBhcmQgDQp9 Disclaimer (test code = [id number]) t6ykgJOuMDDxl9gcCPKszJ FuZzEwMzNcZnRuYmpcdWMx GLgbkhSlREazu9BqC5HqWc AwMFxhbnNpXGRlZmxhbmcx HMHqBMW9yqDxIPWpWYnjQO GpECmbGj6pbFKgiFanNqIp SERog8efayIXNQouGzPgD9 54ACMxGFxbj4bux3NrBOYs xNTmh5X7KBSWjhzncNo2zS ayW76is2N2QoqgH3zcCQTl ZAYkO8CoJR7oHAWkZkr2QN N4XFI3ZTLcYBNqO5EvIL9m XXAndRYkRPx1m8lvxBhgKL VxRUP9b4lyJJeynzZuCR5s un3rgYq4u2wcbqWuASRsVG NvpVRWGOTzJ9RlhHsnWc7n aKf0wEkjIzhfDMQ6Kaw2IC 1fpp37hwk6oAgbGFZpkldi GkQ7LRsrMVLsgtbvWRj2AD rzEPTrhFK0DMTtzYKbX9Bw ECBoYK9dvrr5FEB6LKgrBS RuNxR0IWOlvMPkQUQioUvd SPsqd894WYI1YnAtLJ8dH1 Wom8F1gR6diRKjYQAthFSi HmNbECUloa3hpKGbRLskq7 QkCEV4sbX5fNGgxMXtPNIf LN95Feiyr6LyUadwz8SuQ2 8qgCD3PMkdl4raYR7oYwF2 dzUpUXrbi4nktJ5nJrL4UU nbSQ7aRD1dTSUgaZ6jcbqb XHBnYnJkcmhlYWRccGdicm ZaRm4kiAukMPC2NLrlO6sy yC4jCiQ7JGmvP3xdlG6fLJ p6DFkoxMZ1TYJvaE1sCT5u idclk7npYEvlTAthMMNlvs L8whW0HQOmpKHeU7XwzK4n IROfZH5bkpsbs8kaBPB3HO jsJIHuOJY8GfKtYLFga1Nq ikm2UoMwv9GwnFSaGOacP7 5qe645WRXreyUqM9gsjMKh hbtosKSdvqleBJkyuzM4BG JgpgMri5BfOIPrJVJ8ICsm PDudrEBzAACciOvnh7rcO6 RscGFyXHBsYWluXGYxXGZz MjBcbGFuZzEwMzNcaGljaF csHDcsJxHjWPLnTOanY3ie EfXdL3YbFEZqNvPtmYEcD5 ggVGhpcyByZXBvcnQgbWF5 JBkrT3c3JKTarxLdeRn8rt AnUjSkORKwURF6IJfhzHIn IBWwo6XcllzhsBPaCq6nwE ZtHWDlaY5wEIYgCVIvPVml RP4nfJu9FPZOkQXveWOzYq BTAQLdJG72ddGdMHUXogqj z4A2YXjjZDOtv3LxwDTpL0 zmu6NwDJHfy37xCF5zt6C3 y9seBCD5RK6qs7OyJWIpiH SxnUQnIKArg7Lzgghbq6Mg CHEjjwDcg1YpRESwfsVluQ YwZLEtduNhpr3fjdJpXEWf MFTdE1XlgyjqcUmthmRdJB Gted0sciCkOAB2AHKVGQCf EZQwv8QzzS4muVCUQSF1pS Sorv0tgmQQkUFtOGIwpf56 HGIwJE9iC3upNZFlTUAxgt HcrJZmb1DrZKFyaFN4zVFr SC2QPmFJd06tVYPeNRRGwv LtPZTzxNwpeGY2onQ5lF9n IChGREEpLlx+IFRoZSBGRE RzZS7erpVdg5VzpoXvlIlg OAHvmCCjr6GspMLpr8NarC tbi6JftUZovZOxQI7vEGRw clxwYXIgVVRNQiBMYWJvcm N7s4HaTTDxOEYsRZI7vWxx lvq4YNWdoR4qCVOzG1cucy nwVSolOHMsm3ApjI7ajDWV pDNkc2YrlHIhfHHPhEJyIA 9pktUjEXqSQQpRTCH3ilAl XOSno4CuIWziI8gcA26eiS kbfWu1jVL4NNR5uF6zEeb+ IFxwYXJccGFyIEFwcHJvcH BsETTwsVipmlDgZ2ZsriFq vL2atPRcliAjRZ1yXE5vS6 R6qWLlKOUvbjIjh6tdANsz dmUgYmVlbiByZXZpZXdlZC Htk7EmNPjvJUL5ORbwinWf bmNsdWRpbmcgSCZFLCBTcG ZmiMSsIRL8JIdqdePyuyLk LZ1lxA7qaSijjS4huBZokG X0reusEKBcVYDtxRyfLKJh RX2slQzecO8lSgHzCnRnAG deMB4yFEHzI4xfxPPpTUBn CAPyB7awYcFucX1etVrwVQ xjZjJcZnMyMFxwYXJccGFy XHBsYWluXGYxXGZzMjBcbG FuZzEwMzNcaGljaFxmMVxk UrGhHOAkCCytY3alXfFtO1 DnILCuUsSynDTpJ7nrESfu THW0TVEzJG8sqVDaQX39rK Okk9veDYyglVzdnq5lZ20t xGBgRHovbSvnVWOzx53dg5 MgRMHgigXama6bLBKxklK8 cM0gJIEmwNncGGDphQEgIK Rcs9NzSZoqxTOgboBsHFvg UNLzFKYkeMOvdvZ2yeJvmp DqnmBqHLEymJtdHIIip1Ts XUFzTAofp3Vbow3xkAZhXS OycqWMpChsdBMcuA9pU5Xp AOKjQVSczl7mIZUknE1sEA yxh7HtzlntTNGkWVVhZIVz gbWhbh8aZTVgjUWEDB9YLT lkiHVnk4VabdLgI8gLKWY4 NUQwNjYwMjgxKSBleGNlcH EyOADszm50JYPxdZ7foVkm ZMWkyW3wyY5mkEbexK2bUu ToQtIoHQuySL0oHAGcC7mg gXMzUYSuFSAdV4afNtPsfV 9jaFxmMVxjZjJcZnMyMFxw YXJ9fQ== Embedded Images (test code = [id number]) [facility] [id number] 19:23:05* Test Item Value Reference Range Interpretation Comme nts Case Report (test code = [id number]) Surgical Pathology ?Case: [id number] ? Authorizing Provider: ?Dominic Keita MD ? [...] HPylori ? Final Diagnosis (test code = [id number]) w9fqjVWnRWVhx3vbQZNezO FuZzEwMzNcZnRuYmpcdWMx SSdqfiAiOPejbJzqHIE9UY ZrBS4hpWfpiGi0lRptWVQj gzG3lKQiWVtaw8npGTE1n0 hyezcqTBFeTZooAt1xmWLk xFgkDfHlIFJfDBo1tL54TC YivH8luMTyXFr0MVFjfGWm mqEzOxFcXFZqkYRhiOC9FR NgSX3tldelMMngMSjpWDKo wxO9MKZwsZRmM3CqMYCbCS 6zqmtrZZZ7ZObeSGMzXZT9 IeCoIAZpx6Iejdp4IeAeqW FyZFxwbGFpblxmczIwXHBh crLVUaEESR0KYLUWZHSIT7 uVUOATRN6WODYJGozhaKRk UOAvUXLgNXKHLC4MKNLuL9 aZVbRiTK1JUXWzZJOsfRUn RPCykcXJBqGJBP1DRG3OJZ wgQklPUFNZOlxwYXIgICAg PFHyOOtGV7RGARXpESMMI3 ZWYUgDBKvqKv7fCBWRHM7N L6bVM1UJIODRWX6TUKtbKM AxYXXbETIhNQ4NYDnwQMGW MW3UQYUYWCAFXBmIYLUCJF VGLUkYPNHVW5XQADyDKQDw vsxpSIYyMl0qX6NAUIUWLA wgQklPUFNZOlxwYXIgICAg XLFwVWTZG5MFQlMVSJ8JK0 5LNMQYTNKEEI2KXKTRYGkR NC5WVYFHAFKCHXOCI9QzsT FyICAgICAgLSBOTyBFVklE HF6RCYRKIlPIIRyGYOSxVS lTRUFTRVxwYXIgICAgICAt KU2OUQkbTHKKEA1LEUJYIe dBTklTTVMgSURFTlRJRklF ZWTCHQVGHG8EPc8EAIRXRn xwYXJccGFyfXtccnRmMVxz t4YxU7LgRaCdXYrrqgPbVY BmMaepvqoaBKIqJFH4uiIw OQLqFNtqJNSgUFniMt9wlP EjdScwRqAgQFOgv7vjidAK AOsoWkSoD810GECaVFlol7 vcx3YaMISjfUTmm9M7XAZA hksrxAg0j1qjVgLhFbX0qN ZwAZkdE4devdCdhJDwW3Nc zLOxxIt9lIhmB69rz4G9Dd viP1rrHCHiBGYxB2BrCV4q QBKcPmq8BDG6SUO2IMQfXD RqX1SiWS6aDQGsbRKySLh0 e0jlaNvhJBZqOTA9h4fvRJ tponF2OQ9mjf0fmWn2g6uf czEgRGVmYXVsdCBQYXJhZ3 MlfFyjAm6pwCi6tHdzQptd WMY1Qmf5GE8tpn84hjx8lK zqPEOpstyxLhG1MFozWJGr yewbOZw0CGvhJBWgpPA5HA XavXZsQ0WbNLKyXL4eyad6 SRZ4ZLhfYRSbYcU7ZTZudB BfLNYapHzhEAgna802FOM6 BrHjQP1hY5Psg7A5bH4etT JbHFUhzHZvMfTdRXJxxf5b fBPrFRhcs3IdDTH5scG4bT WabYAbQIFvGG73Qdaud5Pw BzssVQO3LKWloaSad8Ccv6 wlCfSwwiOxR3izA9QyJZAf VRAiTTHzNdDgfbSlm5Mja6 MusQPycHt2h5pnGTUxKONp yMtcb0soOYD0DGFvL3E5eY Ror4zrLWluYVNmyYX2lgD2 NJNazHVkZ2AlhU9gVBStRL 7hpxn1y3nkUVN4OYliILXd ZoS3jbS0LXRnjWFuFYDheJ guYIwgz562VMN8NhXmNKWk o0AmQ5LwuNknG42zzQwzI6 6jQAGteSskxZ5zpNyzrF0o ZjBcZnMyNFxxbFxwbGFpbl xmMVxmczIwXGxhbmcxMDMz QWqiR2lqUyMqZMDxdLfaGW duw7DsUDTiAXLzOpfcdqPt XHBhciBJIGhhdmUgcGVyc2 9uYWxseSByZXZpZXdlZCBh eAhms6DeY6kjUV6bU8XcwD NmozHoqoEiMEykWLJyj8n9 uFKyzXrqo9LokWYoWG21tt NiBPFkCGZ8ZOTcw5fmZK63 bzkeTeCiqD18vjXibvWlQH Eqb9hkN5esyZCmi0Aeq6Ti ixBgGXlli3IkWE5eaUNurz qzvRT1QHOieXOwjzBqwdL6 hUjeDCRuzY5pkY4swEnrwU 9cAhBeSuQgYTsjSK1nCPEr S2rihQBgFNSzNZZyX2eaSz GrrG4wpRepMychtjS4IBYd cn19 Clinical Information (test code = [id number]) Shivani Schuler is a 47 year old female with IDA1. Gastric polyp x 6 r/o adenoma2.Duodenal Bx, r/o Celiac disease 3. Gastric Bx r/o HPylori Gross Description (test code = [id number]) d0jsnCGdVBSbgZBVIJT6IG LrKA7voRjwcRo2fMvcBSXj pcY6kKElUXjuq8blNBE8x3 xpqvSGKpywONEiVH6gVVtw ZCZsJY4lQkLxJVSlDlZwLH BhcGVydzEyMjQwXHBhcGVy hKF9LRYrFB5pwqcsMIhdIT vmUAXyjoY3HVOrkVZeQ1Dv OGDyMH8tzqfoGIV6WHPLOk gyPi6ujJPzcVofEzYuXlTd YXJzZXQwXGZuaWwgQXJpYW y2xE2GItddZLO5QKYVKstv GezocHolb7VxjRVbGSIdQK xcaWQgNTEwMDAgXFxkYiBP YdVzBeO5Nph4QQJ6ZbN0XM j8JNXMOUQbFcqvXCN3AdS7 APr5JXNmGG2bLAqrvDUfFV iuRnzqJNuzY961EIlsYQKz K5JvH7OhHTeqTqQsBGvzIV MsWGArTRqsSGJsM4CBNJLt BZR4RiOkJQMpBHo4AUyrA7 PUGYZnUQWbBbG6LYWpQuZ3 QTv1SDYYZy5tNQhkOxUuLL j4EUX1ONz0BoJfWPVcBvOz STAgTBRvLBgmyEKeSW7iqM cjKGBjPQ5PDLZaESbaPICx DtPjR2BLB0lXOJ7oCUppdT JjaFxmczIyXHBhciANClxw DDAsRP7VKLSxQIybJUh3gp YwYYZcKcFzHMPtO40pq2CO z7PlHM3MYLy0hhNyxebudJ 8oLMWgssShVIxWkNYfcQ5e dbLRDAyiHNOnH8SxqwIyDV wpJSCgcn8mnIekZCylAaTz bGVkIHdpdGggdGhlIHBhdG qaljSzW5A3hrKlSX2pHVRX TCYdqK1iYFDsQHSaa8NktH GknMroC5UsjGLmVcWhu0q8 eUG8BLTvxhPqEPMqwEPiXT Mhdi0vRAtlSbRqK2O5HPVf YAWlx02orJB3cuDhPgQjiX k9rCAiLTW2NF6nzMqtadWa s9g4pH0nYZMts8Q2ZBRce0 C3SAKsfuEzwHKyePBmQUIo GX5chpFjHK40VXStARynPE bvWRB5GLX6MSJjzPJkj7zi xznqRh3rHWebYH1tUBqxDA 28RNAsBEiaABEmW5YmI9U5 OGsbHADxCFBydXWtvE4yfo AiamQdgAt0OVBzWYM1eAWs dKrvNIUpQqqvwNT4ILRnOv DpgiRxx3IlbTf1rFExDIza PABhoO6gkK5dLKOfORLtsf PITakdMBHwMUdtu2SpHDxp cGljWHNhMzAgDQpcZXBpY0 2va6KFh6Ixr7qshIeid9Xz oGHdKN2lsETdZR2Tj0woNF ReaNVrSVR3LSlwq5omIIzt UVP4PZGaQaAtPOOxYV4BLi EkPAqjEDu0DIudTLy3LOf9 KJ0PVcDtULHdBba3JnQ0Lb AfFFb8FPdcLQ2GXLZ5ISUu KTDaGQtiVSA8AXRoFIu5ZQ IgXFxzcyAzIFxcZmwgXFxu Y71ouRZhTOrjHaJmQUwafP spQQUuRIB9ZW5JWKGkMlKz N6TLF2fCYI2cRclbjzHgRP VgumBRYshnQFOqUX0OHHRs UAorISt9waTmPUDzNfJmVN UkD42ej4IOv6IpKI2KOJy1 ocZxtfpkeN3sTMQdzyAjp1 IzMFxlcGljWHNiMzAgDQpT bJDmbV8nwoGZBMkkFHVuI1 PqbkXwGGvuANBtba3vaJnz IGxhYmVsbGVkIHdpdGggdG uhYUBurPhjbhZyJ4U8iyFk BQ8yJCMBIBFktF9cJFXqAK KiFDXhIDXlhJ4fUWL8s2Xt heKdMGPRZHRelEzhVE52zS BjZWxpYWMgZGlzZWFzZSBh pbMnvgQao47txfHtr4GkRP 2qoCrmVTrXAKfeKmXtQT8d WVPvjsPmy6KiQX9eLTAmlF NxMBVogpbygVWhQDu9oGKb JUAjWjLyqVemf4AiJLJoWM cuPU91dsMaRO4yGSavOG4f NLrrEW9aTNZnFTSrEITiXk AksXQhJnZkqACvSkNtC38o QnZGmLDqv2XyS8ybTN8jsH PxWjfjnKXpDRFodNxur9Ag dJJuUOAug3DghNGoBKvuIC 7kKWR6Fe6kcPXsVTRhirW9 x8TvAGybYYZhWrveKXLwJJ yjd0PnFXEqsGGUw4NtIZ9E XHBhciANClxzYTMwXGVwaW ZKx5QpQGAMAkualLfaUiGq rSEfTfF3DDJcaLHmGUG5AE 0kxDxvOPIyWQe2OFwnFESz O5GiC3LtNWqcFkEqQJctBJ XuNLEgCWoqAZPaD0TKVICe WFF7ClAjNAYsHSg8FYkdH8 QHVATxFADhRgF8XZX9WtX1 TAp7HRPZYy5vFIpaEcByKM BxXaD0LVi4LrPjGGSoWwHn XGKiRDGpQPvtjWOoJL6kzD djCVByLORuSQE8EWVplCDF n7FaFASmWGscKdQuXHKYNX ZNKG6ZCbACFYWgNrPvtJTq SL3THWQbdsXpZEqrwXuaaT 2vaGGmL3bjHhCbInwaaTia TmVzdERvYzEgDQpcbHRycG FyXGxpbjBccmluMFxzYjMw SSZdfRCAo3SdUTWLEmCzXS NpbWVuIEMgaXMgcmVjZWl2 LZRkyF0pKl1vxTQnbU4tlV AzDIofNTGjq1y1kPH1jWUl vUD3eTGjdEbqGwUfFO1jtG OtVRATUW91kGNbjpJfMIUy hX6qLBDvTGGaKDX2fsvgIR KYFUJ1eVNag1Z0TOrfEKE0 mD6ucFyjEgFkP9C6DUBvOJ Wgn93kfIZ8jpHiFeKuKMYi qa5glG3tQMjweiEssDhtei Uqs2D0CQTpi9V5CBZzylAp wRWvjAVjPOOzXqX8IAUkSg Q1KYLhJZJiiUDkWBIjXE5x VGhlIHNwZWNpbWVuIGlzIG ExnNZjcuTyTFRoxq16E6rz NGNeaC9qh9twYiFbKRYeCH JufQZneRX6GFVrbB5xfF72 viPxuvROEY9cvHIsDH2GFU NiMFxlcGljWHNiMCANClxw YTAbRLhod7CtUNvyyDojPQ NpAwBkVUpGtQijKZLXU1fb aETlRDtaKVFTFMfGH6JJWI 1VHYYfpFQOLEL1MP3tRSfu AFNxT4SwL5QxrhM2u1ipxY bjy7BfnEBzQY2idUKgQK0I XHBhcmQgDQp9 Disclaimer (test code = [id number]) y9yczOOeFWDsw8ouZGTdkW FuZzEwMzNcZnRuYmpcdWMx ERaaqxVgUDhcz8OqC4VnNd AwMFxhbnNpXGRlZmxhbmcx SDIfOHF4oePmNBEaPMkwPE VnXVeaNu5dlUJryGkqGbAf NLWoc2aqzcOVREhzWrWaY5 97QQTjAIkla3ktn4BjGFCn aZTnu7J4XZNTuqlozVi3aQ iiX87sa0Y1ErmwR0umIBAp MJIaU8QvFI1dUDIkGkb1DC K6MBI2DOFoFCNoM7DwJV3v SOVctQKaFYr0f7qboWjvUJ IzAMM1b2skDUfjaoGlCT7m ot7dqYc5r3qdmoUgJPYpRH FivUJYQAQvG5ChaWksFr8e mKh9iWeoKsswLWQ2Gcx3KD 4bnr33cjf8rNggWXXyyvli LsL9EArgWVZfkfzuKJy8BT aoXDKbuGC9PQByxLSaP5Az VPFiNY3aboa1DDH1KMkoBG FuUlA0ALPueWCnTQVmpSrf LHfoo741OUQ0KhTtMD4kT2 Cvz4X1aR5twCFoLOKpxKPt WcZlLHZivt3elKLnDPxbn7 JxJZG1ujZ8zKXubTDlFULm RG09Azbli7ZpPjjel6FwV9 8lsIW5GYzuc1caBM3sYdA3 nbFzWXosd7fydK7sMoZ0AC zuZV2fEV0gTTTgpS8noafs XHBnYnJkcmhlYWRccGdicm InKc0vbIgdRLK6PUmhP5hz hB7hNkD4FAriO4xgbZ6tLD e7UNjatWJ7MIIcoP5iTR6u wvnce9fuJSzfIQqpJXOvzx W9iyF1QWUjgNSyL8MhxY8w IXQqBT5xbiwyk8joFNG4CZ iyRVAhZKV1AzOsXWEvv5Im pes4EdUrs1AaqBQjWFdcC0 7to372TAWdidNdF4mzfQIh hrontCOjykumGVqepgN3IR UmcpUqj8BlVAKlYRR4WSbk USawwWLtTPYccMxtg8isY8 RscGFyXHBsYWluXGYxXGZz MjBcbGFuZzEwMzNcaGljaF jmJRqpVtQsSSIkRArnJ0av FgRjA0NiTJAkKuDbzACsP2 ggVGhpcyByZXBvcnQgbWF5 YXxnA6j1ABMemsRujXx9xy EyXhNsEKVmNKM7JQclnMZa BCJoy5NafmwrlIGzNe0ydD FbJFEilD4uBBDoJHNbBMqt ZX1adLz8UOLGnRXjyBOpPt ZPPNYgKJ57qdFoARFOvkrf d8R2UPpmJRIqq1CiqSQlZ9 wyl4LnKULyg30dQB3ez4D7 k9cwBNV5GJ1mc9UyFNIjlO NsmQMkZOUep9Hdkvibf8Nv CYVoiwYxz8YtQGQabmEzbA AcWSIortHvys9irqTuRFFw QOGmW3ZmarwpzLgpuxPmVD Ezig8ybiPnEFP3DHMZKVHh ILCcz0QzdQ9wbBXBOOP5nQ Qljf5yyfNGgTIcCJIbuo20 DOFuKQ6jK9jrXZPzKSGdmx YcbGMlb3GhMPSyqWY4vYYc QW0HKlJKz38tPJRfLJHVrl DuQBBjlTcnmQM2idM1iF1u IChGREEpLlx+IFRoZSBGRE JhSQ1nvaNzr9FtsuOvyBwr NBCvaGHdq9FnrZZvv1ZrfV wuk2GirKWncCYrIJ5tHIYr clxwYXIgVVRNQiBMYWJvcm I5o4XtRLYcUMJbVUA2wLba oqc1DZJhqM3sPTZiW5wuje xmVFknPPWly5FnuJ8ibJRI yUHkz7TykLKmsBUBdOKuXD 3qtmEyIHvASGnTKSI4qqFs EKZey6SfIJpuY9tnR68aeG rqsSw7sMH8OLP1xG8hGwb+ IFxwYXJccGFyIEFwcHJvcH GcPOUkxRxaebQoY3PpcwJm gK2ppZMtmgTpVT3cHW9eY1 G8cLTeCPObdsJzr8zxVZga dmUgYmVlbiByZXZpZXdlZC Now0IpWPdtWUC9BTnrljGy bmNsdWRpbmcgSCZFLCBTcG LqzXFbBOT0ODynogAqwuMp SQ0tyA2hpPlcpS8qqRYlmO K9qdptUZDhJFRwqUxoQXWf GG0ocSuqgQ0nNoYwIpJqPA txNO9mNSOcT0jkrFFsWPFa HJFwE7rsIeUlzO5acPblDE xjZjJcZnMyMFxwYXJccGFy XHBsYWluXGYxXGZzMjBcbG FuZzEwMzNcaGljaFxmMVxk UdDbZAOkLJuhD0piJdKdN2 BcSXJxCfSjkQAkB0uoIDcw FHP4ITXeFA3xjVDxIV17jK Pkz0nfUSxdhUtmto5aM83h fPRsOVoefKwlPVLzz17dg6 OzJDHilkTszd8vPMNnlrH6 dE9nRCVkrNhpYPSjhBIjTZ Coq5EbSPbujHMghpDmGXwk WMJjKCVzgVUgiaG8jjRiqa ZwcdKzHHWgbXiiVPFpj7Bp QXWtAXfef8Isgg9ybESsLT SrlzBDiBpfpFOjnZ2bT0Bs HKQlZYCsqs8qJCFniE1dHY kdd9AkwcdhVCHfVAYgJFUj yuLgzt7jZNGewBMXRU3QZS kugQInz1QlvdKrZ1bZIQY4 NUQwNjYwMjgxKSBleGNlcH LwOYAgym09JJDocR3qpUtj OAMouC1qzT0ykYyxyC1gGn RuInSqEEldOV9xRPHdI3ex iOEaFKYxZCGiZ0yrMiNbcF 9jaFxmMVxjZjJcZnMyMFxw YXJ9fQ== Embedded Images (test code = [id number]) [facility] [id number] 19:23:05* Test Item Value Reference Range Interpretation Comme nts Case Report (test code = [id number]) Surgical Pathology ?Case: [id number] ? Authorizing Provider: ?Dominic Keita MD ? [...] HPylori ? Final Diagnosis (test code = [id number]) e3dtvWEsWDPfe8rpAJZiaA FuZzEwMzNcZnRuYmpcdWMx ZVstraYoOHiqkSuvLAQ2WV KfAB9xdBtsdBs3mSghBZJj teI2zFEoIUhci5qvYSR6u8 vfgmqnQQZtFIajKx4xlOIh oJmiReRsSUElQKx3aO80FD MofK3tvWSvTDq7PMDqaEBd buJqJuWsBFRypGFbfXL9TJ McQW7qauzmOAduIMcfYHGi deV7BSKekOPqO6HcIWDrKJ 3isiulFGP9FTiqNBZxFRO4 TkGqAFIbu6Afhmc6GnGgjS FyZFxwbGFpblxmczIwXHBh epUXTrVSMC5ZNHUGUJSFN1 zQYACLOA7SNGEKFurhwHSa EAJzSLOwTDZVCR7XJOHhF6 rQOpMjRM2UTVOsRBNleFOp ZXFmxnUTPtODFH6GSO3YMI wgQklPUFNZOlxwYXIgICAg MZCvLKrAX4AVZOXpWWHRB9 KSKGjEFDexNf1nOLZQQX2O J6tEP1IPKTTBWH2UAPtgQL UePTSuUNRaXU2BDBuoXZUB YH9TJCPBALVCDXpSIPNYEP USSCnAWOQNW4SHROiPAOWw jzvkRBMtOr3iN6FYROACQM wgQklPUFNZOlxwYXIgICAg TBStFLVBE3RTJdYWYC5QY7 0MUGLPPXWQZZ8CQUCXBXpF RU4GLQUALAJWFRGUN8DpnS FyICAgICAgLSBOTyBFVklE VV4ERRRGTvJHKTmGKJXhGA lTRUFTRVxwYXIgICAgICAt FR4JPYlcGMDCVE9WJPXMGi dBTklTTVMgSURFTlRJRklF JPFDIYWKIM7FXo8AOSDFCa xwYXJccGFyfXtccnRmMVxz r8UgB1TkCaNzYHzqcuFfNI UfQjfurwohIPKfJVE2odTa MAUzLBuhAQZvRWmaOj4fzF VklVfpFeUcLXNir4njsgTV QNlyZaFbN592TVAzJCzjr3 bje2OiFEDfyVDpt0U4ODYP ufssrWs6l9efKjTaHuL4aN FbFWxuQ2rbrlAomKBwT5Wc kUXshGc6uOshC45yf2N1Ec oyA8paBQRvNUVpS6AfDG0d WZYkAna5XRQ4PKR8DCClGX UeZ1DnOY7fBGNclPCgSVn9 t2vykOwxNAFlXPV2m9xiIN kdpvB0OG0xmw0pxOh5b8ah czEgRGVmYXVsdCBQYXJhZ3 KdcDnuAz4jwRw0fOumFmcr NJB0Lhl0UB2nbs92jpv4aO ecHCWpozciSiB4KEjgKTPh rnzmOAj8UEbbXVEycCY9DF FzgKMxR7TiPSUfAQ5kfjg8 LCJ5BZjjGZUjIgW5INFtgP DtBKVduGbqAKytd005BNE3 XrAkYZ4oB5Txl4Z7qL8qvI ZsTBIrbEWcTaOyREVebu0v vDRxAWavl3HyHHC5dzE4nI GkzTGkSMTpWN83Bmfoe5Xs AfvsAAW7WPAuuqWny1Rad7 uaZnZcjyOzH1mxA5HpGHOv YEQkPSWqPbVcbuOwl2Znh2 VlnOIztNw6c0yaQHBmZPRn xGebl1mqHBR8PGJeL9G8aS Aoy5hlLFsyPNHlfZY8lyH7 XNOujEYjX1GidM6aGAKwTZ 4kmsv2q2ydLWN4UTbzUQEa FjU3afS4EVZklTXaFHXwuP rsNMkpj276PZL6BdCzSWSh h5MmL7DogOchZ39cpDpkQ4 9xSVSiqWgkwF9ngThagU0u ZjBcZnMyNFxxbFxwbGFpbl xmMVxmczIwXGxhbmcxMDMz LWuiX7atUyFgQFMeoYniMN swq5OjMSNlZDVgHpcxunGl XHBhciBJIGhhdmUgcGVyc2 9uYWxseSByZXZpZXdlZCBh cSttc0QpI6ffZL2bY7WpnT EyrpPpurMkEBazBYGgb7c6 jISamHslg6DwdCUyCX71pr KcBBYbSYY8KELta9idWM61 orsaIoHhdF25jqEhdjJlVP Lrn5heI6enaKAbm2Cnc9Fy zkNlHNsie7JnVH7uvLMyqv jhqUW1AOAqrZXbtiWdmwG1 oQstBMUvsJ7sdG5lkVyyjK 2eOuHkQgGlZMqeEK7eUIUc E0fowDVvQUBeXZBaC3naWs OmfN8xxClgPqbugdK4PZZn cn19 Clinical Information (test code = [id number]) Shivani Schuler is a 47 year old female with IDA1. Gastric polyp x 6 r/o adenoma2.Duodenal Bx, r/o Celiac disease 3. Gastric Bx r/o HPylori Gross Description (test code = [id number]) k1ociDIeWVSvzYTIOHC6GG ZpMX0ckXhqmAa4pEztWYFc ibW9cJBeJGxbj9gnMOJ1m4 inwrFGTcgmEBThRL6rTRwb CKJeYY1nYqOsCWEoHfMiEW BhcGVydzEyMjQwXHBhcGVy wIF8ARKfGR2pzlffYBjeSQ hxNZPpblV7NCTibSOxK5Mg FQSiDP2weskqSHQ3STMUDk xhHf5byUGabNnnQtSoJwQh YXJzZXQwXGZuaWwgQXJpYW f1fQ4OBzkqQPZ0TQKABzjs DnzzoIdyj5OsoDRyFSUfTJ xcaWQgNTEwMDAgXFxkYiBP UiAeRyW4Cge6XUG7ShF2AJ f1TKNFKBAnKgfnRBJ2XkM2 AFj0GPVsQR7wMGopoBGdJR ueLpeeEGlsK677UWefSJKm M4LpC6VlEUeePgRgHFkuPF RkTNRlNOitLTPsR2WHWFUx SHM9KtQeVKCpNBw1MAijP7 XXDUUhRODoYkZ1TSRoFvV5 LXy4JDBVBe8hXBfjAlXoWK n9RNU9JJq9XgViSQYhQoXm OJSaKUXqMLlnuJTkUD1gqB xmSCInWC2SVCTtNAigXWOe IoZxG3WHL0sXRA2iXXieqI JjaFxmczIyXHBhciANClxw QVIjAS2PJMMiJTsxNQl4lu AbQCGhDgHnJIZyQ85iq0CZ q6BtQK9NDTz8zgGtsoxkvW 8yCGXokgNdWEfQiPFseC3m twYBIOjgSUHpU0CummIuUT lqPPMbxy8cnUzpDRzxWhDs bGVkIHdpdGggdGhlIHBhdG qhfaSrV7K6ssTxFH3oVFWH JJRqvU2aZHQhJFQvu5SpdL LupQtjR3QvwXJuAqAwg9z9 mQC1CKRpmhXqSPFypFKfXY Uvjz4wTIdiHjZcB8Q6WRBd UETgk52pgSM7ewPjEvTkfO m0qMDdEES3WI5wdWkeroVo g8o5bB7eHKBxu2I8UUQdv8 I4HOHdjiTfaUXmnIRgOZLl FB5evlIoMC47LPHsNSptOO edIYL4CNZ3BQXddATgs8fr cefzQk7kGOkwSZ1wYPrqMO 70BUQyIAaoNURbI3FlM8N7 HWxfEICyFDTqlOUwkB1twr DklfObjSa2AHOiZJC7gSIl gMuzSEFsFwhyxTU1QVCbCm TplhZbb9MlwYw1bNMjHAlf VAUilZ3zlO1kCDKbHTKegg SSGmwgYVZvURxyq7RmLSwp cGljWHNhMzAgDQpcZXBpY0 3gb7YKp1Uhw9mzxHwgk3Du oDMpOT5hwQEtRY7Cr8oaSK PxxFLhNFI9KZlrs8pcCSxt TUV6MHQrRlGyAFQlAK0ORj GoOPtfAYj4NQtoYId8DVd2 VE5WTxTnEYGnPur7QxF8Jp VvALs0MFfmMK9WJTU5JAYr PHXxHWujHKN6YRSyDWi0XI IgXFxzcyAzIFxcZmwgXFxu C49vlXWyUKntIcMbSPlvzD buHWUcFMF8NZ5PKZXqMqTc I7FGG0rPIY0aHszjoyRcXE ZjbtSEOcbnAMMbEX6UNRRs PMcdUGu7dkEyURIlYvWfXU LcX75sv0DXu7CyFS2FRWo6 jfUfkakcpB8cBSTosaNvh6 IzMFxlcGljWHNiMzAgDQpT uHSzzA2frfUWBNttWONoP9 MhjvAzRJcaHHMhgc0euHur IGxhYmVsbGVkIHdpdGggdG iyKOMbeMxvzyUsJ2T6zcAa VQ0qCISMVBLvsF5dCSQyNA AeYHTjCMTpxI1iPWV3g8Wq wcWzJRYOSJRvbUlzIU90nI BjZWxpYWMgZGlzZWFzZSBh hyMradUef06fjuYzp4RxBN 2glEigRGlGCZtpQfMyVX0m PPHhrjAaz9AqCL1lZFZqnW OaUDXxmbfboBFiQZe3rZQs VCGkQfVniClfu4DcQAOnEM mvWH16guPoTU9fIAtbNB6y KZaiYJ9oDLFaXLEwHHRdWs GzbJNfQnObdRFaCjLxP36t HnPGrNBcr4DqE5pmYN8zpW SpJtczrYNaYSRqaUomv5Dx xYKrYOIdm9EfvKCjWFjrOX 0cPKT8Bn0loBZnTVDiouA3 p4YhZBtbRWUkGdrrHNVxMJ wsc1QzOLBigZBVq5YjGA7G XHBhciANClxzYTMwXGVwaW XFz0VhXGMPSqggwPcgGiJk wIBcEoK7TTVhxNGgIZL7QZ 1roJwgNNJeTVx6KXpjNNZr H7PtA8PhWNavRqGmCCssRK CtJMLoTAdzLCMhA6STWAEe QNN4IeXyZMCpCPs1NChnQ8 HWDIRxILYcJuY4NNX3DtF5 ONh4DGLZZd2zMIzvWsFlTR RgPbE8IXu8RiMsRSHmMxCk HPSoDNWwJQlstGXvRF1baM ydEKIyIADeLTB4DOChlXXX x1WlSHChLWbbOqNoAJDDKH VJDG8AEoLLZVZjGiLvyUPl NB6RESUfkyTaRJqqqAsqfB 6fxRGoO2dfArEtCnnmvBxs TmVzdERvYzEgDQpcbHRycG FyXGxpbjBccmluMFxzYjMw OANxrXYWe4XlLICYXeKrHI NpbWVuIEMgaXMgcmVjZWl2 KZRqjX3hEc9hvCTmoW5muN NaMGerSLQku9k1rJD5pLDq hCD0cHNaaLogGuJkXM4nuC PwQCFNDJ85hRYuutBrQWWb yO3aLYSwJTRdPOR7ohnwVC SLGMI8eJHni3S8VTbqTGU1 hH4ouSzzZkAmJ9L5QVAqYD Pko78lrMB5swIlVvOxKZFy lp0ohG5cLHzglnHmxBsyjj Qux1G9BGUkd4R7HWDmiqUu mOApnMXqXAObIqV5LNDhPv R9PVKbPNBdhUHkAEIzYP8n VGhlIHNwZWNpbWVuIGlzIG TmbHYevnFvNVIqig27M7ut KRHvjX8xj3clEzVmFLZmMZ GoiHDswTX7NACkwC9btT26 knWfhnSBCH0apAPwIG1CUT NiMFxlcGljWHNiMCANClxw HFIaEWuth4CsJReiuWvbOW RqSmJqEFiZtKqwWCMAJ7xb oGByUXtyXNGBMBlGZ7PZFJ 9PDFDwrVFKVUH3DL4qNZup DMEqG0ChZ1KnlaG6q7lbxD unk7DxqADtHB6boRUkNQ1N XHBhcmQgDQp9 Disclaimer (test code = [id number]) l6wtmTHmFPOdm4swSLUisT FuZzEwMzNcZnRuYmpcdWMx LZagxtJkAPveg5PiC1EoHc AwMFxhbnNpXGRlZmxhbmcx CCNwNVY9fkTzAQKbBWgiWM VcSDagRs5paXAadMitWtLk RYZle2uibgKHQHmxMcOmL9 72GILfHNhrl6wid5QqKEDy xYUtr2M8VCOCxtrziBz9lS tlF17mm9U1RkwpS3gyZVKk PKPsA7EpMC6qWDVtCjv9WE O7FXQ2QAZwOZAqC8XoPY8c MNHfyJBhEQe2p0ebgAhkKW UfKYS5u8jkFBwbneLiWV5n oj9wbDy1t6iprnYmZUEmKX HxeCKASMDjX8AsjMfjXq6b aUf7wWqmCxykLWZ5Cds1JW 6brt33ump7cJasDORtbuqk RgU7ARwaWAKtgrkbIBx0MX ffBYNxuEQ3UWMrjQAnD4Kd CFExEG2srid1VUG6FUwjEE DyKvE9GPHpuDAjAJAkhCpw UEbdk630CPB3FcBxGL4nU9 Buf8D0mP3pmLOaEVZsqRHj KqLmQTWwkf7bmBCaJLkli1 ZiLXG2nuP1hSQwfCCuLLBr HB12Myieb4LkYmgmq0CnR7 4jcGY5ORlkg8zaMW2uRmA2 qsWdBFxvb5tqaD3iUdA6CY ktSI8zTZ3oBIAdiV8skhcl XHBnYnJkcmhlYWRccGdicm IkRc8ndJlnJWT2XKqgP9rf wD2zUqC3UMtdE1vspS3tMN f7IZzepXV6ENTzqL1iLD6d zuthx1ifFVsdMHmyRPRlao X9vkL8JRXltDOyO3OqcG1a DMMlJO2fwmtqj3ysJZS8GT dnIXWvNHZ8PuTxUDSdr0Mm ltj5HfBff9KotOLpYHwzI9 0bc258AJPibqBaV5ynlIHb pouovHOdzbnnJYsjqeM6VR GoduMbh6VwQZEnJXQ8SWhm OZibsTWsMFCnnQill6qvS0 RscGFyXHBsYWluXGYxXGZz MjBcbGFuZzEwMzNcaGljaF iuRJotUdPzKLAqCJcfM3mi HrMwP7GfESYxNpXggPFtL6 ggVGhpcyByZXBvcnQgbWF5 GPidP2q3MPLcwlCbyBh8wh HqPsVwPULtVCT3RKhyjVOq FNCnu7EcgolmyMJwNw1wfI JdYKRmoE1lNXRiZNUpHYsg JI7zuEz0LQFVhZTqyECoZu ESHTJkMF15bwZbBCEOwscf d9J0SMbrYOIjg1FgzSNvZ1 bdc3WjADWre83qLJ6lx9R5 e8ubWSF0GY5vn5PiCTRnqK EfuEYqIPVcz5Idkukwz8Vz CIElvsZuh0FxWTTegrXrwP CpHRZrmmMsrw3xelPnKZRa RGEkK8FbjdjxeSkbnqVbVI Rnkc8ituOuBRR1HEKKLSYz DXNur3IjvS8fiZKGYJE0pB Olcf7kqySPzDDeDXPvym03 EGNqJJ7iP5vsGZNeJGGrnu VnoMPoh2BrFEOnaAG3pKUe AG1EDoSJc69kJLYzSGTSgu GbQITrjWjixBW7tiB4jZ8f IChGREEpLlx+IFRoZSBGRE ByRS3hilSih9NcduMyjGjn WEYsbPKnl5DfiIMmb2LgdJ miv3SmcTSroDLrLW4jSZQf clxwYXIgVVRNQiBMYWJvcm N9u0KcNDSxJJNtYVZ4tOqh hmd2UGXwsM9tMJLcA5joen cqDIpySWBmg7WxvA1inQUC hWDmq8ZssVYudVTVcIPaSB 9ktkHeKDgCDVhLZZO6ypKa OUQis8QoADxlD7xvV61egA ejiRh8zOD9CVI6hP5cFli+ IFxwYXJccGFyIEFwcHJvcH GyORPjyMeciqQtE2ZqhaIw hP7noNYcneBlWS8gBH5eH8 J9fYUnTCFzgpDwh2uwOJcd dmUgYmVlbiByZXZpZXdlZC Xwx6CnHJflIUW1WTmpbnCo bmNsdWRpbmcgSCZFLCBTcG LvdTIkQPK7AGhitxYhwkJs IL0ylR0bsMovsZ1hlWLzkY D5qirsVYZrHRRxfEpnMZIw ZT7ivAlwtA4wAdSzTzQwCE pqBF0aNBZwS1haqDSwFJGz OXHrG1sjAkSbqO1usWvdAK xjZjJcZnMyMFxwYXJccGFy XHBsYWluXGYxXGZzMjBcbG FuZzEwMzNcaGljaFxmMVxk WbQoCDXiKVygE2qfIuIeG1 VfVASeLsFicNUrI8kdZWjq GTM5VBCkVW9ciPFzNU92yG Hpw5uvTPbxcVcdrx6lK99x kZXkVOodjVyaSVPfn07fn4 InMRSgtjPyer0fUQShjvX9 lT2vBIZgpKwoLMKvsVNaUM Lac1IcEXfqnJTdouReVCyn LZGrYDKfqYGbrlR9imMcqn JkzrEbLSSrpHyuCCNfl1Iq FIIcPGpmc6Vtka5moVPuMF YhsoEBbOeuxFNycP2oA6La SXGrRHUvli8wVOTssL5zUF jqb3DnaoxjERErDCZvUWIp mhZzcq7uANYwlEWLXM1IVG jcvJOlp7OberYgM1aCAXL6 NUQwNjYwMjgxKSBleGNlcH NcFKDsew47RBSgnP2itFvk UHFbmF5awL6szVlmmV0zMa KbIsMaJExiOT4wUTSxB1dz dQSiKHItBAVbP7dkNlVniP 9jaFxmMVxjZjJcZnMyMFxw YXJ9fQ== Embedded Images (test code = [id number]) [facility] [id number] 19:23:05* Test Item Value Reference Range Interpretation Comme nts Case Report (test code = [id number]) Surgical Pathology ?Case: [id number] ? Authorizing Provider: ?Dominic Keita MD ? ? ?Collected: ? 11/13/2022 0805 ?Ordering Location: ? ? GI Endoscopy OR Department Received: ?11/13/2022 1016 ?Pathologist: ? Bilyl Diaz MD PhD ?Specimens: ? A) - STOMACH, Gastric polyp x6 r/o adenoma ? B) - DUODENUM, Duodenal Bx, r/o Celiac disease and reasons for anemia ? C) - STOMACH, Gastric Bx r/o HPylori ? Final Diagnosis (test code = [id number]) [id number] FuZzEwMzNcZnRuYmpcdWMx JQluqzTlHEqahCprRSS2FZ GpEX7zjQvuaRn0hHqmYNGz gxN2vFDdOIaot7hxIBX0g1 rzgwwvMVEbHSleOf6wfTIo nCinZhGgJNTpUMn8bY36VO XpmQ4wyPTsGJl3DNOozOPq pkTmMbRsNOAoiDStsKT9KD QjHI6sagkhVFgbOLveCCIg thH8KDRoiIFjB6EjPRIlVS 5srbjuIHH9FStyGVOyXSN9 GpPkNJVsl0Gjlle9MpPdoC FyZFxwbGFpblxmczIwXHBh qhBFSvXEZO9EXAXWTXODO8 oMSOKPUT3ZFHNQTaqpfJQc RQJaTVFtERMTBZ9HMUNwV5 fMUwPxIA4OYEMbPZGnoPBr MPVtorFKJpQNDY9ZIA1KGU wgQklPUFNZOlxwYXIgICAg ACWkYVvHU6DVTAHnEWSCD8 XRRZgIXWdcCf0zPJNSUZ4S G0wZY4WUQXYHZL8EQAwuLF UeUNJxKUDvNB0XHNoiQIFG XC9TGCLRMAUWEPxULMCASV WCVQgGNQKBS5CGZTtKRGXz lxexTYJtMb8qF3FYELTIKE wgQklPUFNZOlxwYXIgICAg KWVmIULWR6TFNsUXEX4OK5 1RVJIPFOCPFH5OBLMMGOcN IP4YUXLKCHUPALOBQ4EqdO FyICAgICAgLSBOTyBFVklE CD0KDPLJYmGRIKyMTMIgHG lTRUFTRVxwYXIgICAgICAt DI9JYEibTSXRGR6OKWEEWf dBTklTTVMgSURFTlRJRklF SVVXRSEGPQ8LMb3ZJIMSQc xwYXJccGFyfXtccnRmMVxz s6MgC1AcIpRvRGlesbXdUN GnFjwjfrweCPRvWGX0kiHl FEJmDNpmJYOmCSjwEt1reO YpeTroWoAaVDTdl8pvgsSZ TIooPePxH673NCKaTCdkd4 rbf6EeKQRoyFNiq7I8MESZ tgrhlOb7z6wvQvTuTvD8bR UwUMctF2kodtHgyMMgM8Ou kUVokBg6zXmlV20cd6Z1Un apV5hgOVGeYAZlZ0PcCS8z XJXjNse4UQY8RHP5XULyHY SkT7FaPW8eNQOvvYPaIJp5 e8hobTsiPKFqXHV6r1ajLD llvvA7CB3czh4kdAz6d4js czEgRGVmYXVsdCBQYXJhZ3 AzoGizJi9umBl9cNsqRjfz BZO2Ypw0QW1gpd94nkm5tF yjSWWlycypYfA4QNueNSWx qneaCNa6KKdsWLJclAD9EP GwyYEsB9KzFXObTE1rogy7 XHB1JPmgEJXoWgU3GFFtxT GhRTXheVpaXOodw863PVX2 QgBgCH7eS0Dnw9V4sX5owH NnYHGvhFXlBhPaAFXyej4m zPEqNWjqf2HvXGA3jpM0fV BhcNQmTVCaSV22Zatwu0Fu LbdkGGG1HWTeugOii9Eid3 imZrUmqqDcB7axH1NiFXMe LNIxWWIxCrPsrgVdb8Jiu0 OtvQLnrZx2u1kpGSXvMWPn jHxrr9brUXL9YHUbG6J7xC Fyg8ijTIezWNXznSE5vvH2 WYPljLYgI2LqfS3tJETpGI 2wwzb2w6lsEMG3RAldSQFs YvS8qvR3TUAgxJIxXJRoqI wuDYmze880DMK1UqVdWSAy v5LrO0NmyAkiO01sbHmcK5 5lMSGhcXenqE6moFmwmA9g ZjBcZnMyNFxxbFxwbGFpbl xmMVxmczIwXGxhbmcxMDMz CJnrF8slGlLoUCLkgCyiKH hfb7GiYRPzYKUaYvdsjxWo XHBhciBJIGhhdmUgcGVyc2 9uYWxseSByZXZpZXdlZCBh cGrln5IqA6sjJL8xH0LstU IvojOmibFmQBofZMOqb2a7 bSWopOugr1TirLGiAD99ce JpIDKyLJK6GNBog2kfIM13 qkkgPlRywE00rbYsdtDqTN Tff1sqX5tccNUak1Yha0Rg nzZlDHllu5FsCP2utDNvwv jvmAB6NSMulGPdkhYwhiW4 gEnmEDCctD1vgS3vwYezaZ 0hJwBlSaXzBOobMM5gFQQg R7rfmSWjNONoPGFxO9kwCq OczD6noDslVlwdifB7ZIAh cn19 Clinical Information (test code = [id number]) Shivani Schuler is a 47 year old female with IDA1. Gastric polyp x 6 r/o adenoma2.Duodenal Bx, r/o Celiac disease 3. Gastric Bx r/o HPylori Gross Description (test code = [id number]) b0ctiIKwUJBquZIXTFX7QW UaTZ8nuTfndPz7rAfeMILj yuI8cNBmFIaqz0ecPLJ9c3 zqaxNNWhufEECwBD1zBAtw MFHiFR6zGhSnDFQgPiXfTK BhcGVydzEyMjQwXHBhcGVy jJD2NBQzHO0ovbkxMIceJK mzHYQehzX6PXRmlHEfE2Em NZThLG0wokxmVEG5FQVJSv dqXh6voHSzqBzwCmHkSxEy YXJzZXQwXGZuaWwgQXJpYW e3sH6YIpywTSD9OVUARonk HjsmiEfcx2JxlCEiKWVqPU xcaWQgNTEwMDAgXFxkYiBP ZjYvAeS3Ifz5DUP1XnI0DL i0YOEQSYWjCeokCPI6SlU0 QXs1IMIqFD6gXEmkmUOfMO uxRzizWUagO639AGzoKYRv K4RxV2MdHLjdHsWnCQfnXJ HcQDLtPYidSYChM6RQTKMt SOL5MkVpIDXwCMd1UQxnM3 MUFOKhMJVnGdI9NGLbEjK6 UDl5DUEPJv4oTNhgUeSpBX d0XVD7WLw0NdZuUJVxMaZy WLBcXEAyKAcadKEaXD9qyE tcPDNvEC9TYJJkKIfhWRDd SbWvL2XKS3jPXT8pIJbkkK JjaFxmczIyXHBhciANClxw FJYbIK0ZFBRfIQezSSp7yq ArMFTjWvBpEVRgT93co9NB y1MjJF6NDIq2ftNlqltkdM 7rSDPadmUlUQjFmLApuN3l zmWZGOyoFKHvS8QuwaKwDP prQEHqzi9fdBymKPvjKaSd bGVkIHdpdGggdGhlIHBhdG drirFhZ7S1igEqSZ3uZWXP JVHptL0tCLKjRUIsa4UzyY VxpJmoP9QbdKVoGgAaq4f7 qQG0FEMthdDkOIOvhHMlTV Hhat9yVBemCuDyM9D3KUJf QAZta36ziWI3qvLwEkGajV g4vOJhBXM9PQ3gmXxvfoLd u1e1zJ1yROEeh9K4EPKlh5 V4GZBudqHvvLCcdAKtSPJn UI8rhnEuCM14YEUsKFnsRD hzQHK2RGQ9MNRavYFvx1vb fgzwYb0gJEtlYL5fWSbsPV 17VGJxOOjvKOQpI1XmP3E6 MTtfOINpNBWyqYCmeW0mvp LthyIzbFz4FRWbOAC3jXDf zZzuNPHaWpztbWY1UYOeHa OcfxVuq4OroEq9pZLvCPrb CZDysT0etU7nFNUoSTCrxj ZJJmoyBQCcPNjml1ZoVBwg cGljWHNhMzAgDQpcZXBpY0 8ns9TMj7Xpp9okwEvod4Ee mRZkDD4dhARlJD2Nv8ytML GmpKTzURS3EWmhg3ukFYiu TMQ6MJVnXySmPCSdDY8QLx IbOSdnMOx1SOwnSSx3UAp2 FW4PJoTgDCOyRil2VaL8Lb YpGBt9NYniOC8NFUU4RWMe KSNgCMziBYY5EICpLVk7RL IgXFxzcyAzIFxcZmwgXFxu U39ixZYdXIelMiNbIVendN csBDLmOOC8XI7IEEShPwBs W6OPB7sSTJ4lYpbctySxXK BxsuKZOkntLFElBH6TPNDz XRrkTPd6iiQkNHJtLcSwSG IhO03ps2UDg0IgTB8DAOu9 imNrhqqyaN4dPGTpmoQzh7 IzMFxlcGljWHNiMzAgDQpT eCWsqI5tzfJNHGizTTTzX6 QqttPzAEziHTJevi5ocBch IGxhYmVsbGVkIHdpdGggdG reVGVjbJukivZuM7I5tpAv CU0lQXRPMKDwcM4qJIWgRW FnPUHgYQOprX3cEHN1x1Kk maSmGISVDNXuyCrdQE32vP BjZWxpYWMgZGlzZWFzZSBh buVwmlMis46zikGhd8YnNJ 9aiAbkWNmIGShpQnInTY8g ELZlvmEkl4BaAU9oBYMjeB QfZTDkkqgfbTOtWPj2iAYj RUYmImJcxEgdk0GxYAYdRJ hnWR72eiJzPF3gUVivPH2x THurEZ0oICVbCVJiXGHqHa XnqABjFgVapOGgSjVpA80v IaIYtQKjx0HeN3nxGP7itM UqZrgipTErMXQmcWacr5Ic zJEbRSUvk3PucCYwYTllDT 2qQPU2Tt3bxEXuYUJgjxL3 n2BwZVlcPUZyJqfsKOIcCH mma3NnWEUbhDHKz5ObBV7P XHBhciANClxzYTMwXGVwaW ESi6UqIPUFWavcyXwlOoJk sTRgYoT4PLQvpXRoCXK3JY 9rsLgxZOPcSTl7RFtdKMLp B3FhN1MkHGqcEgFeJKepNO UuYESeOCvmCZQrI1CHYTEk HNE5OpOmPIHgOKm0NViiE0 YXOKOgPHUrVzO7QMH3JhV7 LNk0SQALBm2qOAylRsNyON CtKpF0LJi9JnJwNLObEiLz LNPbDJAdTYvccNWfJJ8nxL rnOXCgTGApMXJ3EIUhvMIZ w7OyYUUqTWecSaSyIDHHEX GKOK3PUfQKRYAwFvLrlALs TZ1WPBJnzoJaXOrpjLjfsZ 5cmNSbV5zyImRaCxlgkXew TmVzdERvYzEgDQpcbHRycG FyXGxpbjBccmluMFxzYjMw QDVytHKUz5DdVBWOXaChEZ NpbWVuIEMgaXMgcmVjZWl2 HLCtbU0iHk0jlOQgjK2nfD DfTPgjFPGbm9g1hJB0tNHk iKO2rOBgiOznNuRuPI0atC NqQGZVSX84rNHnciAyMAAh xZ1nMBNwPGZsSEP8jytgUR AQFVJ1oOExu9C6JPwtSWM7 xS8xtHjgHlSwA3L3PJWvFI Bag77ilXK4xyMgHpXzMGRc yx4hmS3nCHfcnfCdoXevnz Lej9Q2QOEcn2M0BEAqkxXs hXQqgHLlGOKeNcL6JSIaXs U3TATtAFYbaAQgDFPzEN7q VGhlIHNwZWNpbWVuIGlzIG BvmHOvnnNlCQCoda13J7ib OMYjyD5fg2ciMzEcVIPcZY XbiHNdvPU5AORpeX2jvB79 rtCeiyABYU0leMAgXW3ZHQ NiMFxlcGljWHNiMCANClxw ANBuZQdey9VsNAeigAluNQ TsMrJnNUqJkUvnPPRXR9wh dDVkSAazLCGAIAgNQ6LADQ 2FENLyeDGJMVH8BL1eTEec TNAkR0PwW7IajxN4b6nbsW edt7WbvJMyJA1cwQJhRS9N XHBhcmQgDQp9 Disclaimer (test code = [id number]) s8tuoMWeCVFbe1ojDIYzlU FuZzEwMzNcZnRuYmpcdWMx PIwmfxDqUPdak7WrN9NpCp AwMFxhbnNpXGRlZmxhbmcx DLOdBQL7dpNcAPQgALegOT RyWIhhQb2vuTGcrMivKqKm LRPxe6uifoZTHBzcBnRxQ6 72YLNfBRmmw5eqf4FeZRYq nVVzu0I0FMRWwvgapLd1iF ymL82ex7P4UcfqB9nlTGNz JMOjQ2HoTZ7kBTUoCvj3AA F3MEP2FGPiYBKjS8QiEY3w SCBxpKRmGXd4y2qfbRfyKQ ZsEAC2s4hnCJkrgzPaQA6r eo7jeVt4i3xbofRnYEHpKV FvmIXYARIwK8DxcQcgCi5a aUs0mKbuXcnkBFK1Gwg2LM 9erl20kkr2wEzjNERrrfjx MvW0PKkcARKsoaymNXv2JQ ttFKLiqYQ7WOSlvAQxV9Xl VILyNL8fzud5NSX4TCceSR PuIxK0GLEdeTAlXNMdyHxh QFtxn980KYM6TaQoFX7tO4 Zgs1I9yF2fcVAaBRBdaBKc WbBnNMWfpb9ykDJrIQvfk3 NfQIT4nyB5tPRahHYbUDVl ZJ01Sqocb5HsTtqhv2YoV1 4qsIQ9YXnaf1jsSS4fLfC0 iwKkOHbnw8pvyF8aShD5BW efSM3oHY1gSYHxbC1sogxs XHBnYnJkcmhlYWRccGdicm TtCq3mtSwdRKM6TKezG4nf kQ4zVwO6WWutL3nrtA0sRJ d3NJtcaGG1RDIytD0uCZ5v yiame5xzHPrfSYzkXCZjfd Z7ywB3GYXarTMfV7XuqC0q WNRyON4ffnqtp4kwBMW7ZG fcBAMiJEL0JzFvWHZcg7Of xyt8DgYkn9MvjZQdPGnhA5 3yx269EIIynbNvV1hqwWJq ngtryWOnnigzBLmoioU4QM JptmOra6CzHFJcHNC4HAfy NVsbrQOkPGEpcChvg4xeM1 RscGFyXHBsYWluXGYxXGZz MjBcbGFuZzEwMzNcaGljaF hxDSqxRrBxKTUrVRfoK1cn ZrToP9VkSLAjNtEmtTCnE5 ggVGhpcyByZXBvcnQgbWF5 PYmbX9n8DMEmtrJfvUv1xo XiBvDgQRQkIPJ9ZIdthIUc PAGbi4HfrotgoBLvNf7xeQ SeKGKtbC8pCWTkKHXgZMny UX1rqFj0GVGYoLUhoFVlLn TSSESfSW82jqVtQJZHiwfc v9S4MDbhKMFuz4RjkQXjP4 tbf4QuNPIun18sHC8oq5I7 w0ghERQ2WO6lu7IuXAOtoO PeqTRjYVJrb6Fkmtdoi0Gm PPCovlGdq3LtTGRjhyQrcK EdCQHuynUkca1yyoWlAVNe DUIwN7FfjpfsvQopwsMfIH Tfol5diuAxDRO1GSKTZPLv NUVeo2JrnH3ttHILQNK8nS Rwwt3voaGLxUIvMGKmcy83 QIGaZD3qH9dnKFTrCSMltv LzjNKmx5FhHHJrqPA6aFId DZ9TFwWSy43mEAMzGSLAzf EzJJQaxZxeqEQ2rwA6bL8h IChGREEpLlx+IFRoZSBGRE JhYQ5mcsPxu7KvavKssHfm REJzpJLtg6TvuUYrz6FquK wds7OfmMMiyIXdOK9yANQu clxwYXIgVVRNQiBMYWJvcm H8c5CgXYXhFKWgTQM7fLfh jov5CQFkyG9wCTSgE1iksl ddLRreKDFmq0XanU3oyDLU fOGwl2CfuUTtbBQDbNMgMX 4esxPnMYnMMOaPVKX8fdYi BYXln4YmYYazL1biW88ttP hekCt2fYB1NUG4nY3qCjo+ IFxwYXJccGFyIEFwcHJvcH BmZVRnbBsmirYsT9VvecRe aD9agLDbfsFqXD3tIP9eG1 F2lDDbDFNpskQii1fjNXex dmUgYmVlbiByZXZpZXdlZC Ayc2YwZPwdQXU7PDwcmeGc bmNsdWRpbmcgSCZFLCBTcG KgvRKdATX9AOlyeuVwmuXn EZ5dhF2tnRsvbK3dgKPceS E4panmZFQbGTMjkFjmOISe KC9tbQothP3kCuKvKmRpVJ flXH5iKALrO5symXOjAECw CYChN8wjPaAqqR6unIseNE xjZjJcZnMyMFxwYXJccGFy XHBsYWluXGYxXGZzMjBcbG FuZzEwMzNcaGljaFxmMVxk AkXaTYNiNVtxX3jzDxBtO7 VjTLJxGpQffVWqG3ldSCze ZVD7MJMjKK3guYVhNB55hD Nla8snMXeybNdgwb0dK79c wSDoLNrihDmoJQYuq34hl5 EcCOLrqzLfxa4tMGDprkH7 fJ9nMOPytAvpXPEclOEbTQ Ymz4SwZWzfrZUuazWqFJds PXRvKFYayRYzcmI0ceKcrb SkixBxXIMhoKmxGFHnj5Of DCCjQVmly3Itwg8hfUMcDE UmrmWMkYxrnDTxqG1hM6Bh TAUyVSEjwb6dTDFtxR0fLF osw9SwgvaeJEZbXBGgASYl cvZuwx5aTJRfqTWAMO4OFO uouGZte5VnneVwP4pDLDJ6 NUQwNjYwMjgxKSBleGNlcH LlPAPiln36GLSrrH5amCka GTTwuW7qwG0zzJdczY8pLm SySbGzPZvdRX9cMEHiL2df tOQaNUSaAGPfT2hoWiAsdF 9jaFxmMVxjZjJcZnMyMFxw YXJ9fQ== Embedded Images (test code = [id number]) [facility] [facility] [id number] 19:23:05* Test Item Value Reference Range Interpretation Comme nts Case Report (test code = [id number]) Surgical Pathology ?Case: [id number] ? Authorizing Provider: ?Dominic Keita MD ? [...] HPylori ? Final Diagnosis (test code = [id number]) t7nkqJIhUSOsh5qmCWXohJ FuZzEwMzNcZnRuYmpcdWMx VFhkzoYbRQnxuFtdCKI7KY AlEA0eqTfexXd2rIqtVLSk xhG1yWQlVZtlx5rkYAH3e8 wshyqpPVYpAAznGt4hoHTk kXgaUuLeZDAsEMe7vG81CV GhgC1pzMJzQJb7HDXnaUDm zlYzIdJbQYQiiNIhyXW9SQ RuPX4ropfpKIasAFlxLFCk ayF2WTJumROcA2QxCGEuNU 1dxkofYSY1VOrdDWThZUV1 DbHnUSTtw2Hmtqk0HnOfeO FyZFxwbGFpblxmczIwXHBh viTHWrLOZR1VKKHZRXAEF3 kUYTADNU4VFULZOsyrtUSh SQAvEGNcGORTZH1GQFBwH7 pAGwSvEV1SVWPiRWUmsRUv SMMtzgGHVxPHNW0DSU7NAU wgQklPUFNZOlxwYXIgICAg YXRlQAjXY2HVVEZvAUWMY2 EOHPxOYHxrBa9gPNDPQS1R I0bWL3CRFMOFJD0FDVmiDJ IgEANsOQIiPR5JXLxhISTJ LW9TXMIANRHOMGcPDZFOWZ RHTQdQHKFVY6EKHLaKUTAs esmrHZDmZd0tD7VMXFGKKQ wgQklPUFNZOlxwYXIgICAg OMRlOWNAF8SMGqQZBF7HJ7 6UCCPVJJSIKJ3QNYWQYZdY QW0PXKKRQBAKNGVLS2ZbnE FyICAgICAgLSBOTyBFVklE TN4OQVYSZcHKTQoNMZTqTT lTRUFTRVxwYXIgICAgICAt DP5BRQlrCLEVBK1EIZOFLv dBTklTTVMgSURFTlRJRklF RRQDXWLXKS8XYl5PNAAWGf xwYXJccGFyfXtccnRmMVxz t0OiE9PgOfSrXMqjwrKmYL ZuYaxbfffiVQTgACG1eqVq VQLaVOrfOUGsYHeyUx4ohG LhrRocLfEiBKTta3zbjrBP WEtqKjOmW256LHEyTJcsi5 yzm0XhAENmmCJvr3U7FJPX ruqijEz0z6krNqOnKqT3eE KjQFwzY3tppzErpTZjP1Vm tRKugGj5yIqxA10kr4H0Ny wfU5bqBFWrFIKwI3GnYW5v ELQjYli0AFR2NCX8AHMsSO SwT2BeDV0oBZWmbJLcKAk1 i1udzDnnBGZnJBV6u0xnWU csadV0QT1qxq4drPj0t7dd czEgRGVmYXVsdCBQYXJhZ3 KskMyzGv8fyXi9bUlvMfpz RNE1Xwb2XP6cpq14mbd5tV myMGSjesciTuQ3BVqhZOWg tcjsSUk7WFegEWDjyAJ0UA NvkIQtZ3WyLOMfYR4bgip8 FLZ5WZyoXYHjZhE2TFMcnP CoXPUwrOjhQCpcx450FLM9 UrRwFE3uP3Mhi4M5tW7vqO BdKOAttQOdFxAlQUDwey0o tSQiGPtky7OhKDO0puC5fG JqnMGiWTViJQ84Krdca7Tm RiybJQE7OPGnoqKtx9Iii9 yaQvCibsLdM6oeR5QwZHAh EJQhFKGuTjDcrsWkz8Ygn0 LulUXbaYk9g8moFPCvXWJv zXjzt1lpZTC8NCBjA6C1uY Dfl1sjMRyhSLCmqQZ3plP0 JDZtqTElX9OefO6jDVLgVL 4zcld1q0lsJZS3USbtPRTy FoE5taI5OGSziVZnYDZqfB psPFqlc568GQY7PdEfHIIv p5DuY2MnoWthP91qnYcvA5 6dQKJivAhjiV0yeUehkI0k ZjBcZnMyNFxxbFxwbGFpbl xmMVxmczIwXGxhbmcxMDMz IJytF4ctLkSyASDujRnpYZ emr7IqITHmUIKuDczewwFn XHBhciBJIGhhdmUgcGVyc2 9uYWxseSByZXZpZXdlZCBh jNznu4LiG3eiDZ3yF9McqV JjmxMeyiUbKNdaYQYpk9b2 mGPbkOpjx7NawKUbKC86rj AvPIKaKSM0WNKmk1qyEE87 pvmpRbCfhD08ozZmhdGfAB Uxi4xeP1redQIql9Btg3Cx brBiELbag4IvKY9byWXjga raeOM7ZPNqjRQzcnZqzbM8 xJqqADHllH7xpL8ojZcmrO 0oOgDtFtKfVJdsYX5yIFWn S6pmiXNvYTUnOQWwN9xcEg FpaF6emFygPgdnlaY7PMPp cn19 Clinical Information (test code = [id number]) Shivani Schuler is a 47 year old female with IDA1. Gastric polyp x 6 r/o adenoma2.Duodenal Bx, r/o Celiac disease 3. Gastric Bx r/o HPylori Gross Description (test code = [id number]) u0fhhRHhIDWknOVWBAQ0UW GsKI0ylVdpjBy1yOzrYKKb kjL3uLNdHLjdy5txJKM8c1 qmjeSKNkumONUxZT4bAPak LLGbBV8sAvMhAHTkVbZtXP BhcGVydzEyMjQwXHBhcGVy jAX8CNUrDX2cewpaCVveNX smWZDpgnZ5XDNuiFKbC0As OJIrSA0ylathNMT4IZXPTv vuAt5shOFsuMngGzGzYeJo YXJzZXQwXGZuaWwgQXJpYW b9kF9PZqrqGKB5ZHZPBnuw UcffnIovh8XxwQUlSCThLC xcaWQgNTEwMDAgXFxkYiBP YiTyRwT6Qnu5ORW5AhW2CM n5WQUZBKVyPrmwXPM8DaX5 FEn8DECiBU0uRLniaIXiWK wvXazaBMzvS432BThoQSRu C7YwA2OwRNrfDaNcAYwvUY VcIIZmCOetMAEkO7MHRAQl TNW7QqDuGLKoPBl1FOxoX0 XEGKFqIXJoTzJ6LDTcNdU1 PFz2VPKBYo2eDSbrHtKaAQ s1BMI2LYh4PgLrWPYbGmHn CSUrWODkIMmgwZXfHX0cqE qqSTVlMY6HKETcLVhmRXKb KlYsP0ZWH7aEUR7fJFnwqE JjaFxmczIyXHBhciANClxw EGQbOF8FONUrKEpyCQh1mq XfEXYrMdQtAJMpO78fa0ZT a0OoEP2DWTk9rwFrmarulV 1lEOOyagLeGJgMwYWrqK4f nbOKGEgxSHIbX2OfufXcKQ wsDYDxpk0jtKneTUvzXiQh bGVkIHdpdGggdGhlIHBhdG tgplAqU1P5mzDcWN3pFAZE BDAmfM9vTEVcMTGai3BomD QhdXmzA6AhvTDkMeQgo1z9 bIA6VCHicoTePHUykBSjQJ Qpjy1nFBbkTrZdH9C3JZHd ICKuc38yiPB6rvZgIoKqkJ f8nFFrRBA0JD2bcWhgqbWw q6i7cK8vKCQeb5I9PIBcz7 S5KEVxofInqVSxgJRsRPVe KL5uahIhQH90UGVgBZseJO wvJPM9OAN7OHUzfEWdf7hh fhefQq2cPIqhCI7aWXilHG 03CFVpCMbjFNRiL7MrO9Z0 WSzeDSYmLWDfgVFqbC7zvb ZwbcYfgXj0GLUhICV1vOSw eMovABOfLhampZI4ZJDqJh WdtqQxk9DhfBg7cIUyZHqb YIAkwK7qsF7kUPNfQKEpnp PDClwaWCZgNBgcn8MfLVfj cGljWHNhMzAgDQpcZXBpY0 4co0MLn2Upo0mmaYhis1Fs lRQsGT2skMNoVQ3Vq2kpVF IuhGUfIEX9UCtjr4lbYAap FJJ1IEArYeJlUYPfYG1UVz ObEXrhPIv6ZZvvJPr8AXh7 WO4NRjIhOQKhUsa0CjX2Wx MuOSg3GPeoFB6KNGU2ZLYg MCSaHIprYJR3MPKyKIl7QK IgXFxzcyAzIFxcZmwgXFxu X06wsLZnMGchIhPfJVjfkZ dlKWGdVTE9BM0LHHYuGoEw D2SCK8dNMX3yFpyqdzZaSY AisbQYZuwgNZWdLS1HARKg GBfvCIr4ouLkOFFbTyVmKV IuQ41yr0VXt7NeGI6AEKu9 byIraspyaL0qTSBzynHvm8 IzMFxlcGljWHNiMzAgDQpT sVUlbA3gxhKJJRetIWAvX8 TxqmExIBzoHFIqeb6voXbj IGxhYmVsbGVkIHdpdGggdG lsQRHmdMnzurBtC6Q2zxZa AU1wLWTOQTIbbJ2pZWMyNM DnYZReDMZatO2pDUR4o7Qh rzLcQHONVRUgmFgxNT70sQ BjZWxpYWMgZGlzZWFzZSBh avPvqkNcb49zibFwt9TpPG 6jqBecHPgHONgaBwQvDP6o DVPhweXoi1XmOR9gOEZhrV ShRHXwqefxvCLsPYu3cZUi EAPpDjAytYqpt7TjDNEvJG uhNL02vpMsBU5mQPhrZM1t RGjyFO2pWUSzSHIiBKHxLo CvfUOzYoTddRIzXpKvD80k PxAXlJQlv9MxE8ohGZ8zqP CwXonorHSmZUFfyNaxj1Uz pQHiUGLmb2ArjFYmEVpgGX 8aCZE8Er3ssDMmGRBulzT5 d2MjBOvoITSxBwtaWZKrZY wsu3FuOMBauRPAr9OjUB3T XHBhciANClxzYTMwXGVwaW YWb8CeVFNCOpidnNqtDbAj pXHnFgR0ZEYcaHPsQVT4WC 8pwLveEJSeDSm3FVpyETCx S5RgJ2BfSRrbQkEpXWtiSE PqDZLsYDfgQKEyH4SJMCVa WRO5YpYyFRSnYWb4YIzfI2 BDWSKcUPVnQuL3WWW0RpS8 BMe2PVIQQm0vAVblHnGxDE CwEbP2GGn4UtPdXOOeQeVm APMzEAHcIPowwBXlRG8jnP ekBOPwNYAkUPN0MUMqlFTJ k6WbFQOkBGnuYoDbACRIIW MVZC8ACgYIKLUqPkJbkXAr SV6VXIEgiqIfPScqrPophA 4mtAHyU9ttCjArVdlmnAys TmVzdERvYzEgDQpcbHRycG FyXGxpbjBccmluMFxzYjMw XZDvlAJSy6LoAMIDQpZuVO NpbWVuIEMgaXMgcmVjZWl2 APLvqB6hCw0quUPpdH5aaS LsKQuuMKLyq8l1wHM0qEOj rMC7mVMbpYtbXwIsBM4lsM BxYSQPDY45cHAxvhOdQODe sW9pGZBhSUNmWFT2cfkjJR CVJBH8uGUzl6S1PBfpLRC9 lO4xrNhsVlPmJ5R0BSEiCK Iqv75mcUZ9fzMrJoWxAQLa py3oiB3sJVpptzGqyRxpjp Qxr1T2TOTst3Y4OGEnpzRn pCJviFIuGEDyYdR3LXUqCq N1MWYrHTObeYVkKZVoAC1i VGhlIHNwZWNpbWVuIGlzIG OovEXmvjLjDTTuug04U9kg GAExhO8mp5oxUwTtJOUvOY SucMZdlIQ2LHPtpH8btY75 mtAnqyUJXR0lzLCfXV3AHF NiMFxlcGljWHNiMCANClxw JGYfDUkky8XnZMwfyZatHA BqNwIxZQiUfXgySKVFM8rk pTLuGLveDLDRIWmUZ1ZZUU 5FAGTnkTVFASP6CE8cLEyv ICTbK2MhA4WdukU7l8aisZ izu9EphJWdCX7zcFTnAF6D XHBhcmQgDQp9 Disclaimer (test code = [id number]) r3ryrPPjZJMiq7obUZOutU FuZzEwMzNcZnRuYmpcdWMx MZiqmhNcWVemp0CxD8UkKj AwMFxhbnNpXGRlZmxhbmcx ZDWkZPA5roVsVPWoENyrRV JkFQdwYy8ukALhbSfnCgJg YJNak2bvrbVPFHztJtAtI8 95DLObXGtnt5pox4OlNHQb sDOgu3D1BZERmhbyuKd5fO idB22cm9K6LuixW4xxORNj USHwP5ToBZ4xMTOzTac2IY Z2XPV6LENwIDMiP2ZoSK7f GOOkaDYhPLu1q9nsgUifCS ArQNT9h0yvAIdbxqJhKG6k oq5ysTs4b3spffGaWRAaNP DsgMQOOQNeR7NedVsyNb9d yMl5oQmmCnziWZT5Hgm4CC 4nrm46mos3gIedYSKxveib SnE0ZMzzUJEvdvhnNVf6YJ pxBGOzbWU2JZKjeJUyM1Wd NGRxDY8prlr2UIT7DDpdFD NnDxQ8YBEsgXDrOUCtwFdu HCegh400TZI0XtBdNL8iY5 Dpk6S8dB3inOCnUFDheZOk EmIzFWAurp6ibLHfUAmav7 GgQUL2dkU1tYNenLNsHNRt MG14Ceuaf2VdZrtgj1LmV7 6jzAI0QFgab1qqZB2aAhT8 ggKvPRrrl3fpiA7uAcR5UH hmDT2gES3uYZRbcW7cqlhj XHBnYnJkcmhlYWRccGdicm WnWf6uuEucTAD4PHdgV7fg sC7qClP2LNbcO6rczD9fBD x0MYbsoPR3AKPdaC3xGL6m duoqw4qaBDhbIJozUFVezl N6iqS0ABUjtHZmB6MriX1r RJEpXJ7dsiosa9zuTJC6HF feYCXvYFB2EsFrMWEmx9Wl rgb0EvGnn0GhdCFuUVszS6 6ss804ZGSlzoEkD0zcnRGr bqgqyIUbnfwcFXsddsR3II TzqnSpq8KxPHLeGUA7QGzq SWtnnXFoXVNlsGwvr9joF8 RscGFyXHBsYWluXGYxXGZz MjBcbGFuZzEwMzNcaGljaF vtJYdyVnQaYAVaIKfdD0nq IdMdT0PeCLMdYcKffWTxY7 ggVGhpcyByZXBvcnQgbWF5 SKtzR3s8VPTpdoMulHc7ke VaFdZmRPMzYKG3HXmzkVGl VKCxm3UerlqztFLgFh5raL DmDQWwfN8tCQTkBSBoFPbs ZH3yyLw4UENUgDQejBRfQw KJYOUeHZ64sdJdGGCIsctj z5C4RWvpPWEpt2GrwKToI5 yal7ShAKPxv58cHL2hy7Q7 q5xoKZD1ZE2ys8QtSKXweL MjkUBzQPKxt1Sosrnsb3Lo VXOefpWls8VqAWJawwXbtB SaFMUdipPpbk5ovyUdRRDq BMVgC4DboxdcnIdplrSsJU Chmm5edlJbGJX0ILYIRJWz QJOqp1VuwW3whDCNBBR0hX Uvfa2opyWSlTMoSLCafu13 ZHVqQT1dG6smQGDrFKUdwt NsqVOfq3FpJIHiyJE2iGBa EO8WVaFPe96oJXNpKBAXyu SbSXSmiEugmGE5ugL8jS6e IChGREEpLlx+IFRoZSBGRE DkVO5zwwNqk7SwurZzxQlq OMTgxSVgs1NteXNve4RdgS ywa3LmvJZxbKLfHW7mFPPt clxwYXIgVVRNQiBMYWJvcm W6p1TyGJYtGQGnRUY5fZsr gww0CYGzlY9nSJZcD6ebqz nwCUoxTSKhv7KurJ4eaIGJ iVBdg6JceYBclIVJsALdEE 3ipiQrZUuRGJwIRCI4vhJk BMXev9DnRXytN4foY10brC ssvUn7gDI8ENZ4iU9iXgp+ IFxwYXJccGFyIEFwcHJvcH FvCHYzuBdbgaPfY4SarjRo eB3dxQAhptXlVJ9gVL1mN8 Q6qINaJJZptiRpd0krHLlw dmUgYmVlbiByZXZpZXdlZC Hek2PsGMozVJS1ROoceiWi bmNsdWRpbmcgSCZFLCBTcG AiaZVpBNR1YXhvugUshmZq XN3usX9kaPydxJ0qtZNiuO E3pppiKCYsSHXmxFbqELMo JG5jlYjghQ2rAhTiOtQcND uhZH7pAGAiO2joqZOlXDRj VCOzZ7zeKjOnzA7xxUyjAF xjZjJcZnMyMFxwYXJccGFy XHBsYWluXGYxXGZzMjBcbG FuZzEwMzNcaGljaFxmMVxk BpZnPPRdPDikL8dpUeNfD5 ClOLYyCeBkhLTsM4meCGml HOL0OMAoNM5ddWSvVE06gO Auu1xpKYohkXcgyh1xM21n hQVxLDbcxUthZRSeg14ez7 PyGOEnbtTupu6hKQQezqQ5 vS5nYEKtfLesRAOabXRbNL Sxu2AxNFbhuYJdqoHqKKkd EDDpVYFgqGMcgmR1jmTjmr VnmiPgBXTrqBddVCXet2Zs TCAaANvjp0Aprm7idDEiGZ GmisANgCsqyKEdgM7vM0Zt RYXqCQAtdg8xJWLgzJ5dVF hym4TlutycUZQiCZKkBTLn rtWsbl4kJPXqoJLEDP1RLR oiyUYqt0CordNbM3nUQQA8 NUQwNjYwMjgxKSBleGNlcH JtOWBjxk06KGXfcZ1kxFah JCRuuK2kyK2afHovtX1hKy KrAfGmHCroGJ7hGGTpN9gn yGUzAYGcFMZsF2apOtFmwF 9jaFxmMVxjZjJcZnMyMFxw YXJ9fQ== Embedded Images (test code = [id number]) [facility] [id number] 19:23:05* Test Item Value Reference Range Interpretation Comme nts Case Report (test code = [id number]) Surgical Pathology ?Case: [id number] ? Authorizing Provider: ?Dominic Keita MD ? [...] HPylori ? Final Diagnosis (test code = [id number]) o6aknODzDSMcs0csGIUqoN FuZzEwMzNcZnRuYmpcdWMx MIpfqjEuGHxucIdiFGZ9DY LeIA4ttNpiyDe1uXpeFNOg qeT1nSFnQEilu3xePDU6h4 icubrhLFBmAWbmOq5uoVWm mCwtKqXnKLAsNSt5sY16SQ SdpU6amDIiDTb7XOBfnMTb tsZuEpGzCKHatPEjrUF5PC RbPX8mzhvvMCapKHxyRSTq qlZ3UZQstSOrT7XrLWUjVF 9kbsykVXG1ITzmCAHeKDY6 VqPpRQAmk5Gkrlj4LqYicL FyZFxwbGFpblxmczIwXHBh esIKOxPOXI8CMJZNQLOTM0 cSZJQNHT8MNDKZNeyvvMYr BHMxRGFiLBLWMO1WYABwY5 fQNsOvNQ3YYZGeJSTmoYEd BRPxbuOQKcQPFR0AJK6XWN wgQklPUFNZOlxwYXIgICAg PPDuMKvLB7LQUBKwSRNLV0 TUTGwDFNpzMn1gOUASEE2J U4eGL1MVSTPWGO0BVEgpAM NoBFVkCMYcVW2VJRjwCSRR BU9CNETREKKEHEhBRBSUBN XRBClGRWMST9OHEWuABCAm mpyjXVUbAc9mU7OTRGLDAN wgQklPUFNZOlxwYXIgICAg VQUtUPHUO4POEfDTMQ4HG9 9KMQXFDRHMUO3APFPEHZzY AY7NRLRXVVICXSMCU3BieL FyICAgICAgLSBOTyBFVklE YJ2YXNKJYvJALTjVQGTcMR lTRUFTRVxwYXIgICAgICAt IJ5VEVgnBPBTUF4ORLJFXe dBTklTTVMgSURFTlRJRklF RKBZOSYKPN1LGj5JPANRTj xwYXJccGFyfXtccnRmMVxz a9NpJ8JwJuOmFPwwkgJwRE GmRutlzzojSRScVVB7qoUy CWPxYScjRNVlHOvgQg2caK XiyZfpAtRzCHZio6amoqVB HTstRaEgM142ORZvGEybc9 sth6QxRQVqbTQru7V3FPLF ezcqkCq3d8apHtYoEhN4wQ MwVTfkS3xofsDfmWVvD8Fc qORuuCr2lPnsR03hp4S9Hh unG3bkNYKzUSFtZ4NmSV0q OTPrHvz5DYQ4TPN8IOUbXN ByZ0XnQC8fHCMvfTCcVUn9 q0pvtWuzZGWwTTW5m7aaKI ksspG0EZ5mul0cjIk1q8vd czEgRGVmYXVsdCBQYXJhZ3 GynIlaUd8jeAo3xLdsQymx QNK5Qrw3BO8cqq30xkt3gD puILGllbytToL2QNwuZLQf traiIWv0YYhkXTJhcTQ7YO TvkKSmZ0AoVADcHZ0fvbi6 TXV7ZVhzFPPgCeS7TRTbwH MvTUBztKtdKFgwe382KXV8 MlFpIA7uA8Xju5Y8kG0qlE VyTMSdxFDxQnPcCJOfvy7u oRSfXOott8DlJHO4cdO0aN HurWDxLVOuDS84Pzhke7Zq QjnyUCV1TIKokhQrn8Scb6 edYcAzooBsH4cmW3TfPOWs GRVaNFFiMkVxjtZzn4Lxj5 MrpRGfnWy6q3uxNEJfPZZr qBadk5teRPZ7LXGsQ2Q0dR Osk2noNZrzJSNpfNT4jaC2 YYSspLFbJ0WuzQ4pHCEyFQ 7zaou9s4fyYER6IVbbGQJo EdH8ofK6WIJevGEaSYDwaR gyIAzml926UNV1LuSaAWQw v6ZgS2VamXprI93hwQmwJ1 4bSRMnvBbtpA5fdQniiM0v ZjBcZnMyNFxxbFxwbGFpbl xmMVxmczIwXGxhbmcxMDMz CRgwK4aaSlKkHLJbiAyoIV jhx6TaEGLmDKReJmcioyFr XHBhciBJIGhhdmUgcGVyc2 9uYWxseSByZXZpZXdlZCBh vKuli9KsX5lzBD8xL5TurS WnyeBaccMfPAqxWUWjy7b0 iKJzvEyrh0KdlTAgAM74xe DkIXGqCUR2GRMbl8plCO04 hpeyDhJknZ12poEmxeXeOT Lpr5yrB9onfLDjh2Nhk9Ne tmTkNWonu4UiEI1lwLCbhm bgbRI0XXDjxVLpcfXuswJ2 vZgkNWCduD5dfM7bgKmccJ 6rInGmFoFlLYhyLC2hSAGr H4nmcONxTZNuBVUhG5agQv OakI2rnRojAunmhuP9KKBi cn19 Clinical Information (test code = [id number]) Shivani Schuler is a 47 year old female with IDA1. Gastric polyp x 6 r/o adenoma2.Duodenal Bx, r/o Celiac disease 3. Gastric Bx r/o HPylori Gross Description (test code = [id number]) a5palDLxYBDzaYNODOF6ZB KxLY0luRmlxZv5tNenDOGe lnW0fPNrAXper6imERH0a9 lblmOEUlngFDIpSE5oGEiu GDJxVG4bPsCpFBLjRyVmRP BhcGVydzEyMjQwXHBhcGVy lPA9ODQpBG4uerfsTWunQJ jbHFZongH6HHKozNEdS7Re VPBpKE1byhvoTYF2VELUPa jaLn8uoDCbkHqpCuHjSnYy YXJzZXQwXGZuaWwgQXJpYW u2hM5BJhrfIAG5EPJZIrmj NfzdsYdxn9UkgOVrWLJlYO xcaWQgNTEwMDAgXFxkYiBP RlFlTmZ6Cun0LUY5DrM8ZK y2MWDUIVWbGpqsDMO2DrY4 DHy6JZJoCK6rJOjhfBEmEZ rlYtolMWfuK739GNjhPPEy E1QoE5XhNYhgBzEaYLuuRE WlLCXpXVftKEWlV8KJEAWa RKQ1YiXhFDEpMEv0ELoyJ5 ZNSZGwCCLiReP8RLIbKmC0 PRu4IIIVOr4uLXduMuMlXF o8JMI2YBe1BdZgIBDcAaFo RVVpIJSkDOqstUCcOG2enJ oaEOHdDH3ODAVmWKnnXHJx XkRbJ2GYO4wKWW1sCAxozS JjaFxmczIyXHBhciANClxw QHHoQO3JNRNhNUloRVw9dl QeWHCcRkUoSJHfN15bg5WS s4IpNQ7GXRz6peVibfcdlN 6hUSFdoeQtEAmEvCTvoS4z qdCXWWngASOrQ0KohgLyNY sbLNIjdv0bnTyoRKpbQuVo bGVkIHdpdGggdGhlIHBhdG dmfwVgR9S6zcTjYG5dVUJZ KCAyqD6kGFTbYDQqs8WfmU CzpGefN9RbhCEjDhUck3d4 uNU2ZGSxujIdTUAstDGfCT Pdiz3xZUlyTyFhD5J6VGQc KVGvu89krRB6pfWwPeUfzT n7xSJlMTS6AR2ixPidprNd w2u7vS9jDBGxe1I7FRJuh7 S5VKZpevKffONjaHLiRYPt ZX3ydaSdDQ12WRUtIWrfXA imTSZ0ZRK5FXQosTRag3tl qggbZf6kNAvrBG1cHLgxMD 89SESfAXreMOObA0GbZ9M2 WCmuNFUcJNKnhBHgmU8xuu HvdpVqaSr6BFPrQON7sWYu lLueNEUrEsxhiFY6MKLoXr UaxaIhb4UimBd6dEGhLFar AKTcgA2fsQ0vVYQpUEQzbz ESQfxkZKEkIPact7CwQQqy cGljWHNhMzAgDQpcZXBpY0 4zr9KLg2Tfv5scdSydb0Vy bULmNR4dxPEvEO1Fn0uaIB SgkDEnTNY2EYtzj8pbEEay PPE4QFRtQaYxKBCbNQ2NWl ItGQxsQPa4IZmsBPj6MKw4 YP5IBwJeIWNxRoy3OcJ5Wc PaVDw7OUbtXZ7LSLR5TJNs NPIuUHjxKGQ2HUHgZGw3NI IgXFxzcyAzIFxcZmwgXFxu J82tjMLgZNmmCpNuOLsnlF cyBNIkBSB1IZ8MTOUbZjDy M5IDQ6wBYC3eVstptrJrGH BkufGYVcxrYYAwDV4MSVEa KNkoMRw5qqWxYNDcTsKsJB OcW07ks4MXt5XkTB2TISi9 gpLzywbxgY7oSAJkbgCss5 IzMFxlcGljWHNiMzAgDQpT kFOkrD7aytEPYYivDKKkG4 IcpdXzKNhiRLFytk6amIrt IGxhYmVsbGVkIHdpdGggdG ioBXNbfEkplcUqP0H6cuAi OH9rIVMOXUXkwW8uAXOmOZ PqRMMgDFAbiR0gVTC0p8Dp wbZhDGFOCGJfpUxjJQ42uH BjZWxpYWMgZGlzZWFzZSBh rqIvlhKfd57hjkZui6OpQZ 6ikSzhDDsPGYbbXaQxOD5n HXFkvbAfo3ElIO2cYDWevR IdEXJiktlhpVTyYRa0qYHm LZPdZaYvkJmgu6LaZFMpGU prGQ28vtNiAX5qEKhbMZ7h LUlyNU1hMANoHVEaUULvVe FvsASoCbPavOQqLoFdW25u HmAGlIXhk7BeU0nwYO8jqA AxAnfjjBEwBBYdxRbxa8Lx uCXzRVGqq5OzsJSwXNjfOM 4uHHH6Db1vzYUuNNBdlsD3 p1TmDBjqVVCxHwbuZDCrVR ywg8VhDELciRNEq9EwOF9B XHBhciANClxzYTMwXGVwaW XDd2GqRPWJFymjrCznRtBm dEJpRrY7TBOmhWEqILR3TF 0ouFuxNVWsJXy0RVsnQCPr C2JrK9QlEDepRqFlOBiqVD LwWSVfEYiwZDVhF9HCSHUa MFG3TkMpRSBcLVx7AImsG4 KSIZTaJLXkKhE1YUE3LhW9 RIa5BBMTBe5xORetPdZqKL GmXfU8DSa4EdSaBAHtPdZn MQNvSVBeJMjkjYZvNT6ydJ cuQHQzNPYjTWB3XMZmsKBO g2KaFZBqJUaqLyWaNKRHMD LBUH9PNdKPHQIwZjEwxEHw SU8OFGCpejAqKEainEdwdG 0xrTJpP2psOgAeFggysBej TmVzdERvYzEgDQpcbHRycG FyXGxpbjBccmluMFxzYjMw SFVpsPKHc1MiWWVAEdDjMM NpbWVuIEMgaXMgcmVjZWl2 BGIdqD3sCa9svUEvoL5fsY ZjFPryARJep6r8dNY9qWQx oKR6xMSpqOswBrFwZJ0zpQ TcWKBLYE39vRDlfcAjPFTr nS7xRPIuDBAmBXR1ezetJZ YCOIM0dFFdl4Q5FCghBZS1 hG1uaTfwLbWxM5D3GKPwCK Lct02udBB6tuDcZaXoRSYg dm0oeE9nEWbrbuGtyWdvll Usy0D6HNXqq6V9OYWybdDj rEFucNRtIBOzOpR2QLWrWs C9GGJwYSSqeKKpFGSeDA4c VGhlIHNwZWNpbWVuIGlzIG UtrJXmfxGbBZAgbw70O2kf ZKZugN6xy0zmLvKlNZEjHZ JhnIBnmWM0YIVmlH9yjQ07 wfDiwtBFSX3erUGbGL5RWZ NiMFxlcGljWHNiMCANClxw FSPiSYfpc7DtZNwvnYjbXU YbTrJeZNrIsAboGRASD9ub bRLfWFymZDOROFcGM3JXAK 5WJBUddZFUUAC2VX8tVKcu AVKjO4ZbO1RhxiX0i4szxA joh3CbnEMlQP8izYUiDX2Y XHBhcmQgDQp9 Disclaimer (test code = [id number]) p7heqPJoSWFsv0lxWZQvsZ FuZzEwMzNcZnRuYmpcdWMx PDwhwbAiIDckr9QhK4OqEl AwMFxhbnNpXGRlZmxhbmcx JXKbHQU1fcWhXIPoFGiwYA RrINgzRg4ykUXyaAmyVtZq XSVib3hnowIFLMkgEuXcC5 41SCOmYCtrw1vea1TlLTDg yUMno7W5LVXKypkyaFl6sC veI90zu6I2BdadW1mrKKYj VNUvH6IxPL1mFPNiVre3JM V8SGP3VIEnYICsM8HwDZ5p QNBvqNVgRMe0d1fddUwrOS RvDRZ9w3yxZQgavrCmGK1w xl5tdEv6c0aywgEhMUHkFH CfkSBOZABsF8IgyFbnZe9d bAd4tPwqHvqvTNL3Cur0MI 6anq91hqw6rPdwSGOggzjl OvY7EYakLVCjozfaIQm2DO nuHZKjpXH3CXZwqOOaF7Zs CVHwBP3tljs0JAJ2HCpdJM PgRgH8GVPooEIgIIIiiLoe KButd199JNG2OzHzEQ1nT4 Vzt9E5aG3fuWEhGQEzpUHq HiAaIHDjrh8mvDHeCUmzv3 SpILY1rbX1iTVtmJNfGCHy DO20Ondpq9ZzEajfz4MgO1 4mvDU4DAjjr1qhMH4xQdY7 jwPfGPepm3xbmJ2lIgG4BX lnKG2iSU9aBIUkiV9mphdu XHBnYnJkcmhlYWRccGdicm GfNx5bbYytLKN6JIrjD0ep aF7hKuQ3GBzwJ5txhS8xSL h7WUtwrEZ6NBRjxS2rGL2z koucv0jjAOfhIPyjENAovb A8ieJ5DWZezIRdA6JkjF0s MCQtDB3dyknfa7ikVYN6IB vhINMtLOR2DcSyQPXwc0Gc zcx2WiEnz0GqfYKiSNphP9 8no373ZGBnskAeZ9kbkUMn pzcfwMMrsaseKMaxvxD3VV IuquTte5YoLUNlCDK8PFqz JGmxcYMyJKTxnStnw4fqW0 RscGFyXHBsYWluXGYxXGZz MjBcbGFuZzEwMzNcaGljaF blMGqnBnQrQKHhPTpuA1pw AxQxZ0LsIHOxPaByqVDsV4 ggVGhpcyByZXBvcnQgbWF5 RFziF5v5OUQnwfGimOs8ne JaQcPhHGCjXMJ7RRmxiVIn HLKmc3RltxkkePSnJn4amN HdEHOctB7bBDFjLUFjRBia KT0lwVj4SUGWmLRurFCnFq BRWJXhZZ36naArUZHQhcly s6O7TQitBHUlp0VcsSZsS4 rte5TzWENgl58aXL3pp8Y2 p1xgYUR4DI1vz8LzENRayD KpeYRhWALkb4Hukmspi1Zv FJHvlxJsw9GyTNKyexLoxZ FvUIFtlyFqel0lieFfCOIi YKZzT0PgtgguaZcbmgHqLI Ocpv9qndHzZLR7BAOOSVPo KFMda6FohS6kcBLZKAY2dT Lsyo8uxkCAkYLoCLSsod86 EJIjZA8mF8omTGFjFQQpug PuqAIih5YuTMRfpJK5qNBq BJ0WIcFQz73pCKInEQAZmy EwNUPrpTpcxPU3poR7aT0l IChGREEpLlx+IFRoZSBGRE WhAU9lkrJiz5UjxuCgiQhv GWZjcCEgk8WdoHGkr7DrpH xqt9QmqWFnfWNjBV6eBVVc clxwYXIgVVRNQiBMYWJvcm L2f4EhKDPaCUHrCXI4fSzc wzy6UQQjxW1bMVNoR4rzko twIZsnWCOju1EekS4qyBQB qERij7DflRSyjUZNrZYrNT 5yctOrDQzNQEiANVM9dgAz FSDrj6TzSPyvF1meU47dgF pqaJp9vGF8NQL3pB2iUje+ IFxwYXJccGFyIEFwcHJvcH EbXCNgyWpvemAcX5UymwEm eH7efHHralEoWC7qYE9xS1 R6lJLnLTCrscPnx5tqPDkw dmUgYmVlbiByZXZpZXdlZC Kvc5YbTXkqSHP5BSrdhxNe bmNsdWRpbmcgSCZFLCBTcG NjfOUrJWW9SDyafcQhglXh NV7yhG9edLbhlD2aoJErzC D7suplBSSxYSOqbBrdSTMi HM7juGdagF1lUfKaAqUzYT ioZO3yCXXqW1nwnAUlZDFl PEFsB6kjExVwnU8jxAyyPC xjZjJcZnMyMFxwYXJccGFy XHBsYWluXGYxXGZzMjBcbG FuZzEwMzNcaGljaFxmMVxk DqNoDPVaJXjdC0qeRrAwY6 LkTTClPcSthITsG5iyRDqw PVE3SREfJU6ctQBvSX21sO Gfv2qoIJjfzTwrww1bH28r eWSkBBioaFtoFTPto36bd9 MtKFZlpfJqrl6gKUQwzxE3 oW2dOBNshKwkIETesPNiII Lnn2MoQYwaiWJzqrZpWXvv KLAcZUBjcJEanuY9yeHgqa VsveFdWBIlaVqgPJOlf0Tu KXNuLQzig1Odxq7oxKNeAN MrqmPQgHnvaQDmnS9oB7Fm TLZhRSRxda0jJUVtfK6ePR izv9TymkxdYNVpCWVtNJWu jmAntl6iZHYrvIHGEH1JOD eaxHMxt1CxioFlE9uCVWB6 NUQwNjYwMjgxKSBleGNlcH PvHMVuvk59YUTanB3omWyq GZHyoV8rxB5cqFmguN8dPl LbIzJfBSslGZ2yFDAiI0wn jRAxLZYmIBCsN4brAySkuS 9jaFxmMVxjZjJcZnMyMFxw YXJ9fQ== Embedded Images (test code = 1644427131) [facility]. METABOLIC PANEL ([id number])2022-11-03 17:25:32* Test Item Value Reference Range Interpretation Comme nts NA (test code = 0174063864) 139 mmol/L 135-145 K (test code = 9869126143) 4.2 mmol/L 3.5-5.0 CL (test code = 2866088720) 105 mmol/L 98-108 CO2 TOTAL (test code = 9700784599) 26 mmol/L 23-31 AGAP (test code = 4214183689) 8 2-16 BUN (test code = 6417906096) 9 mg/dL 7-23 GLUCOSE (test code = 9895445036) 93 mg/dL 70-110 CREATININE (test code = 7655390225) 0.60 mg/dL 0.50-1.04 TOTAL BILI (test code = 0680242894) 0.2 mg/dL 0.1-1.1 CALCIUM (test code = 9945889939) 9.2 mg/dL 8.6-10.6 T PROTEIN (test code = 3249949308) 7.0 g/dL 6.3-8.2 ALBUMIN (test code = 0630450949) 4.2 g/dL 3.5-5.0 ALK PHOS (test code = 5969494283) 118 U/L 34-122 ALTv (test code = 1742-6) 34 U/L 5-35 AST(SGOT) (test code = 7169332172) 34 U/L 13-40 eGFR (test code = 5735302770) 108.1 mL/min/1.73m2 ZAINAB (test code = ZAINAB) [...] or urine or abnormalities in imaging tests). [facility]. METABOLIC PANEL ([id number])2022-11-03 17:25:32* Test Item Value Reference Range Interpretation Comme nts NA (test code = 0411080356) 139 mmol/L 135-145 K (test code = 9019334915) 4.2 mmol/L 3.5-5.0 CL (test code = 7422583569) 105 mmol/L 98-108 CO2 TOTAL (test code = 3316249647) 26 mmol/L 23-31 AGAP (test code = 1955917273) 8 2-16 BUN (test code = 3472118448) 9 mg/dL 7-23 GLUCOSE (test code = 2114871683) 93 mg/dL 70-110 CREATININE (test code = 4329180331) 0.60 mg/dL 0.50-1.04 TOTAL BILI (test code = 3510573544) 0.2 mg/dL 0.1-1.1 CALCIUM (test code = 0200733044) 9.2 mg/dL 8.6-10.6 T PROTEIN (test code = 4368220570) 7.0 g/dL 6.3-8.2 ALBUMIN (test code = 0918846724) 4.2 g/dL 3.5-5.0 ALK PHOS (test code = 3496872086) 118 U/L 34-122 ALTv (test code = 1742-6) 34 U/L 5-35 AST(SGOT) (test code = 1457342291) 34 U/L 13-40 eGFR (test code = 9011085056) 108.1 mL/min/1.73m2 ZAINAB (test code = ZAINAB) [...] or urine or abnormalities in imaging tests). [facility]. METABOLIC PANEL ([id number])2022-11-03 17:25:32* Test Item Value Reference Range Interpretation Comme nts NA (test code = 4562574067) 139 mmol/L 135-145 K (test code = 2727464668) 4.2 mmol/L 3.5-5.0 CL (test code = 9474638994) 105 mmol/L 98-108 CO2 TOTAL (test code = 4716991371) 26 mmol/L 23-31 AGAP (test code = 4681948554) 8 2-16 BUN (test code = 2811443615) 9 mg/dL 7-23 GLUCOSE (test code = 0679686557) 93 mg/dL 70-110 CREATININE (test code = 0598342992) 0.60 mg/dL 0.50-1.04 TOTAL BILI (test code = 1399444331) 0.2 mg/dL 0.1-1.1 CALCIUM (test code = 9086528307) 9.2 mg/dL 8.6-10.6 T PROTEIN (test code = 6084373611) 7.0 g/dL 6.3-8.2 ALBUMIN (test code = 8744175142) 4.2 g/dL 3.5-5.0 ALK PHOS (test code = 5936820800) 118 U/L 34-122 ALTv (test code = 1742-6) 34 U/L 5-35 AST(SGOT) (test code = 3497434394) 34 U/L 13-40 eGFR (test code = 2636327318) 108.1 mL/min/1.73m2 ZAINAB (test code = ZAINAB) [...] or urine or abnormalities in imaging tests). [facility]. METABOLIC PANEL ([id number])2022-11-03 17:25:32* Test Item Value Reference Range Interpretation Comme nts NA (test code = 0091906977) 139 mmol/L 135-145 K (test code = 5661187682) 4.2 mmol/L 3.5-5.0 CL (test code = 4171115475) 105 mmol/L 98-108 CO2 TOTAL (test code = 0300465458) 26 mmol/L 23-31 AGAP (test code = 7056735511) 8 2-16 BUN (test code = 3434777136) 9 mg/dL 7-23 GLUCOSE (test code = 0618210773) 93 mg/dL 70-110 CREATININE (test code = 3920335584) 0.60 mg/dL 0.50-1.04 TOTAL BILI (test code = 1045239065) 0.2 mg/dL 0.1-1.1 CALCIUM (test code = 9827782254) 9.2 mg/dL 8.6-10.6 T PROTEIN (test code = 6725783024) 7.0 g/dL 6.3-8.2 ALBUMIN (test code = 3943061744) 4.2 g/dL 3.5-5.0 ALK PHOS (test code = 1771100625) 118 U/L 34-122 ALTv (test code = 1742-6) 34 U/L 5-35 AST(SGOT) (test code = 2617346476) 34 U/L 13-40 eGFR (test code = 0389896187) 108.1 mL/min/1.73m2 ZAINAB (test code = ZAINAB) [...] or urine or abnormalities in imaging tests). [facility]. METABOLIC PANEL ([id number])2022-11-03 17:25:32* Test Item Value Reference Range Interpretation Comme nts NA (test code = 5530615423) 139 mmol/L 135-145 K (test code = 1862036903) 4.2 mmol/L 3.5-5.0 CL (test code = 8412813601) 105 mmol/L 98-108 CO2 TOTAL (test code = 5335630466) 26 mmol/L 23-31 AGAP (test code = 8805050007) 8 2-16 BUN (test code = 0504414082) 9 mg/dL 7-23 GLUCOSE (test code = 6365867142) 93 mg/dL 70-110 CREATININE (test code = 9083818151) 0.60 mg/dL 0.50-1.04 TOTAL BILI (test code = 3443285219) 0.2 mg/dL 0.1-1.1 CALCIUM (test code = 2692650051) 9.2 mg/dL 8.6-10.6 T PROTEIN (test code = 8581188548) 7.0 g/dL 6.3-8.2 ALBUMIN (test code = 2786283409) 4.2 g/dL 3.5-5.0 ALK PHOS (test code = 6988097319) 118 U/L 34-122 ALTv (test code = 1742-6) 34 U/L 5-35 AST(SGOT) (test code = 8300252779) 34 U/L 13-40 eGFR (test code = 6767817228) 108.1 mL/min/1.73m2 ZAINAB (test code = ZAINAB) [...] or urine or abnormalities in imaging tests). [facility]. METABOLIC PANEL ([id number])2022-11-03 17:25:32* Test Item Value Reference Range Interpretation Comme nts NA (test code = 4151649016) 139 mmol/L 135-145 K (test code = 0428984187) 4.2 mmol/L 3.5-5.0 CL (test code = 7991694304) 105 mmol/L 98-108 CO2 TOTAL (test code = 5436432909) 26 mmol/L 23-31 AGAP (test code = 4609991659) 8 2-16 BUN (test code = 4110119814) 9 mg/dL 7-23 GLUCOSE (test code = 5183614544) 93 mg/dL 70-110 CREATININE (test code = 3989071126) 0.60 mg/dL 0.50-1.04 TOTAL BILI (test code = 1275470552) 0.2 mg/dL 0.1-1.1 CALCIUM (test code = 6581048841) 9.2 mg/dL 8.6-10.6 T PROTEIN (test code = 3878562698) 7.0 g/dL 6.3-8.2 ALBUMIN (test code = 9276603321) 4.2 g/dL 3.5-5.0 ALK PHOS (test code = 8565880304) 118 U/L 34-122 ALTv (test code = 1742-6) 34 U/L 5-35 AST(SGOT) (test code = 7900817994) 34 U/L 13-40 eGFR (test code = 8334391502) 108.1 mL/min/1.73m2 ZAINAB (test code = ZAINAB) [...] or urine or abnormalities in imaging tests). [facility]. METABOLIC PANEL ([id number])2022-11-03 17:25:32* Test Item Value Reference Range Interpretation Comme nts NA (test code = 6614946943) 139 mmol/L 135-145 K (test code = 6741170461) 4.2 mmol/L 3.5-5.0 CL (test code = 1345529936) 105 mmol/L 98-108 CO2 TOTAL (test code = 8932680684) 26 mmol/L 23-31 AGAP (test code = 5135785622) 8 2-16 BUN (test code = 6180948841) 9 mg/dL 7-23 GLUCOSE (test code = 7665065878) 93 mg/dL 70-110 CREATININE (test code = 8558005378) 0.60 mg/dL 0.50-1.04 TOTAL BILI (test code = 1541686675) 0.2 mg/dL 0.1-1.1 CALCIUM (test code = 7629127298) 9.2 mg/dL 8.6-10.6 T PROTEIN (test code = 6709823378) 7.0 g/dL 6.3-8.2 ALBUMIN (test code = 0545398888) 4.2 g/dL 3.5-5.0 ALK PHOS (test code = 2679659230) 118 U/L 34-122 ALTv (test code = 1742-6) 34 U/L 5-35 AST(SGOT) (test code = 3325309134) 34 U/L 13-40 eGFR (test code = 7746940500) 108.1 mL/min/1.73m2 ZAINAB (test code = ZAINAB) [...] or urine or abnormalities in imaging tests). [facility]. METABOLIC PANEL ([id number])2022-11-03 17:25:32* Test Item Value Reference Range Interpretation Comme nts NA (test code = 2124879509) 139 mmol/L 135-145 K (test code = 2064673886) 4.2 mmol/L 3.5-5.0 CL (test code = 6969794583) 105 mmol/L 98-108 CO2 TOTAL (test code = 2023911612) 26 mmol/L 23-31 AGAP (test code = 2978934822) 8 2-16 BUN (test code = 1592509955) 9 mg/dL 7-23 GLUCOSE (test code = 3160079283) 93 mg/dL 70-110 CREATININE (test code = 1114470716) 0.60 mg/dL 0.50-1.04 TOTAL BILI (test code = 4819947766) 0.2 mg/dL 0.1-1.1 CALCIUM (test code = 9372935065) 9.2 mg/dL 8.6-10.6 T PROTEIN (test code = 5225132342) 7.0 g/dL 6.3-8.2 ALBUMIN (test code = 7342821641) 4.2 g/dL 3.5-5.0 ALK PHOS (test code = 0455746979) 118 U/L 34-122 ALTv (test code = 1742-6) 34 U/L 5-35 AST(SGOT) (test code = 8062743934) 34 U/L 13-40 eGFR (test code = 4952048555) 108.1 mL/min/1.73m2 ZAINAB (test code = ZAINAB) [...] or urine or abnormalities in imaging tests). [facility]. METABOLIC PANEL ([id number])2022-11-03 17:25:32* Test Item Value Reference Range Interpretation Comme nts NA (test code = 0440896398) 139 mmol/L 135-145 K (test code = 2463447529) 4.2 mmol/L 3.5-5.0 CL (test code = 1939708787) 105 mmol/L 98-108 CO2 TOTAL (test code = 4833775085) 26 mmol/L 23-31 AGAP (test code = 3195784738) 8 2-16 BUN (test code = 8545968609) 9 mg/dL 7-23 GLUCOSE (test code = 4946914717) 93 mg/dL 70-110 CREATININE (test code = 9910352992) 0.60 mg/dL 0.50-1.04 TOTAL BILI (test code = 8785512952) 0.2 mg/dL 0.1-1.1 CALCIUM (test code = 8185927958) 9.2 mg/dL 8.6-10.6 T PROTEIN (test code = 1639810025) 7.0 g/dL 6.3-8.2 ALBUMIN (test code = 0129707419) 4.2 g/dL 3.5-5.0 ALK PHOS (test code = 7590465463) 118 U/L 34-122 ALTv (test code = 1742-6) 34 U/L 5-35 AST(SGOT) (test code = 8506451126) 34 U/L 13-40 eGFR (test code = 41942-2) 108.1 mL/min/1.73m2 ZAINAB (test code = ZAINAB) [...] or urine or abnormalities in imaging tests). [facility]. METABOLIC PANEL ([id number])2022-11-03 17:25:32* Test Item Value Reference Range Interpretation Comme nts NA (test code = 2868067207) 139 mmol/L 135-145 K (test code = 1382080042) 4.2 mmol/L 3.5-5.0 CL (test code = 9152514459) 105 mmol/L 98-108 CO2 TOTAL (test code = 7374701918) 26 mmol/L 23-31 AGAP (test code = 7446398271) 8 2-16 BUN (test code = 9864979183) 9 mg/dL 7-23 GLUCOSE (test code = 5663415989) 93 mg/dL 70-110 CREATININE (test code = 3608040165) 0.60 mg/dL 0.50-1.04 TOTAL BILI (test code = 5864863131) 0.2 mg/dL 0.1-1.1 CALCIUM (test code = 6206614907) 9.2 mg/dL 8.6-10.6 T PROTEIN (test code = 7369813837) 7.0 g/dL 6.3-8.2 ALBUMIN (test code = 6318567308) 4.2 g/dL 3.5-5.0 ALK PHOS (test code = 7853965406) 118 U/L 34-122 ALTv (test code = 1742-6) 34 U/L 5-35 AST(SGOT) (test code = 8758454389) 34 U/L 13-40 eGFR (test code = 61395-1) 108.1 mL/min/1.73m2 ZAINAB (test code = ZAINAB) [...] or urine or abnormalities in imaging tests). [facility]. METABOLIC PANEL ([id number])2022-11-03 17:25:32* Test Item Value Reference Range Interpretation Comme nts NA (test code = 9577688844) 139 mmol/L 135-145 K (test code = 3715864725) 4.2 mmol/L 3.5-5.0 CL (test code = 9149170809) 105 mmol/L 98-108 CO2 TOTAL (test code = 8521277834) 26 mmol/L 23-31 AGAP (test code = 1883753497) 8 2-16 BUN (test code = 3526704466) 9 mg/dL 7-23 GLUCOSE (test code = 8912516054) 93 mg/dL 70-110 CREATININE (test code = 5161177797) 0.60 mg/dL 0.50-1.04 TOTAL BILI (test code = 7316999333) 0.2 mg/dL 0.1-1.1 CALCIUM (test code = 3565816166) 9.2 mg/dL 8.6-10.6 T PROTEIN (test code = 0740379835) 7.0 g/dL 6.3-8.2 ALBUMIN (test code = 9886474547) 4.2 g/dL 3.5-5.0 ALK PHOS (test code = 7413881114) 118 U/L 34-122 ALTv (test code = 1742-6) 34 U/L 5-35 AST(SGOT) (test code = 5228771444) 34 U/L 13-40 eGFR (test code = 38723-8) 108.1 mL/min/1.73m2 ZAINAB (test code = ZAINAB) [...] or urine or abnormalities in imaging tests). [facility]. METABOLIC PANEL ([id number])2022-11-03 17:25:32* Test Item Value Reference Range Interpretation Comme nts NA (test code = 1652427191) 139 mmol/L 135-145 K (test code = 6493234873) 4.2 mmol/L 3.5-5.0 CL (test code = 0210880709) 105 mmol/L 98-108 CO2 TOTAL (test code = 4821654870) 26 mmol/L 23-31 AGAP (test code = 5488268221) 8 2-16 BUN (test code = 2126040082) 9 mg/dL 7-23 GLUCOSE (test code = 1544903509) 93 mg/dL 70-110 CREATININE (test code = 7660434652) 0.60 mg/dL 0.50-1.04 TOTAL BILI (test code = 2932648657) 0.2 mg/dL 0.1-1.1 CALCIUM (test code = 0289501096) 9.2 mg/dL 8.6-10.6 T PROTEIN (test code = 7790973605) 7.0 g/dL 6.3-8.2 ALBUMIN (test code = 6337822176) 4.2 g/dL 3.5-5.0 ALK PHOS (test code = 3510561525) 118 U/L 34-122 ALTv (test code = 1742-6) 34 U/L 5-35 AST(SGOT) (test code = 6524887086) 34 U/L 13-40 eGFR (test code = 25724-9) 108.1 mL/min/1.73m2 ZAINAB (test code = ZAINAB) [...] or urine or abnormalities in imaging tests). [facility]. METABOLIC PANEL ([id number])2022-11-03 17:25:32* Test Item Value Reference Range Interpretation Comme nts NA (test code = 1775308159) 139 mmol/L 135-145 K (test code = 4247262449) 4.2 mmol/L 3.5-5.0 CL (test code = 8602011433) 105 mmol/L 98-108 CO2 TOTAL (test code = 1391320808) 26 mmol/L 23-31 AGAP (test code = 5954830876) 8 2-16 BUN (test code = 9220775238) 9 mg/dL 7-23 GLUCOSE (test code = 9209129416) 93 mg/dL 70-110 CREATININE (test code = 3625904922) 0.60 mg/dL 0.50-1.04 TOTAL BILI (test code = 5469804258) 0.2 mg/dL 0.1-1.1 CALCIUM (test code = 4556365141) 9.2 mg/dL 8.6-10.6 T PROTEIN (test code = 6542106857) 7.0 g/dL 6.3-8.2 ALBUMIN (test code = 6566644390) 4.2 g/dL 3.5-5.0 ALK PHOS (test code = 9100522444) 118 U/L 34-122 ALTv (test code = 1742-6) 34 U/L 5-35 AST(SGOT) (test code = 9315450782) 34 U/L 13-40 eGFR (test code = 20723-5) 108.1 mL/min/1.73m2 ZAINAB (test code = ZAINAB) [...] or urine or abnormalities in imaging tests). [facility]. METABOLIC PANEL ([id number])2022-11-03 17:25:32* Test Item Value Reference Range Interpretation Comme nts NA (test code = 8670910476) 139 mmol/L 135-145 K (test code = 7604969460) 4.2 mmol/L 3.5-5.0 CL (test code = 9972896086) 105 mmol/L 98-108 CO2 TOTAL (test code = 2281963052) 26 mmol/L 23-31 AGAP (test code = 7345023532) 8 2-16 BUN (test code = 6592361563) 9 mg/dL 7-23 GLUCOSE (test code = 6641086676) 93 mg/dL 70-110 CREATININE (test code = 3158959738) 0.60 mg/dL 0.50-1.04 TOTAL BILI (test code = 0740903186) 0.2 mg/dL 0.1-1.1 CALCIUM (test code = 7055662765) 9.2 mg/dL 8.6-10.6 T PROTEIN (test code = 3673823172) 7.0 g/dL 6.3-8.2 ALBUMIN (test code = 4962330517) 4.2 g/dL 3.5-5.0 ALK PHOS (test code = 2138026703) 118 U/L 34-122 ALTv (test code = 1742-6) 34 U/L 5-35 AST(SGOT) (test code = 1751258751) 34 U/L 13-40 eGFR (test code = 95461-0) 108.1 mL/min/1.73m2 ZAINAB (test code = ZAINAB) [...] or urine or abnormalities in imaging tests). [facility]. METABOLIC PANEL ([id number])2022-11-03 17:25:32* Test Item Value Reference Range Interpretation Comme nts NA (test code = 8603709362) 139 mmol/L 135-145 K (test code = 9031375189) 4.2 mmol/L 3.5-5.0 CL (test code = 8874673494) 105 mmol/L 98-108 CO2 TOTAL (test code = 7374986731) 26 mmol/L 23-31 AGAP (test code = 0760304178) 8 2-16 BUN (test code = 4538163102) 9 mg/dL 7-23 GLUCOSE (test code = 1620175385) 93 mg/dL 70-110 CREATININE (test code = 5536868387) 0.60 mg/dL 0.50-1.04 TOTAL BILI (test code = 2749951754) 0.2 mg/dL 0.1-1.1 CALCIUM (test code = 4225410704) 9.2 mg/dL 8.6-10.6 T PROTEIN (test code = 6336487199) 7.0 g/dL 6.3-8.2 ALBUMIN (test code = 3305520297) 4.2 g/dL 3.5-5.0 ALK PHOS (test code = 6569223063) 118 U/L 34-122 ALTv (test code = 1742-6) 34 U/L 5-35 AST(SGOT) (test code = 1511293744) 34 U/L 13-40 eGFR (test code = 25765-0) 108.1 mL/min/1.73m2 ZAINAB (test code = ZAINAB) [...] or urine or abnormalities in imaging tests). [facility]. METABOLIC PANEL ([id number])2022-11-03 17:25:32* Test Item Value Reference Range Interpretation Comme nts NA (test code = 0308074664) 139 mmol/L 135-145 K (test code = 6027657130) 4.2 mmol/L 3.5-5.0 CL (test code = 0718114052) 105 mmol/L 98-108 CO2 TOTAL (test code = 2165950920) 26 mmol/L 23-31 AGAP (test code = 4100080125) 8 2-16 BUN (test code = 9031451384) 9 mg/dL 7-23 GLUCOSE (test code = 6180900633) 93 mg/dL 70-110 CREATININE (test code = 0494192368) 0.60 mg/dL 0.50-1.04 TOTAL BILI (test code = 9815078398) 0.2 mg/dL 0.1-1.1 CALCIUM (test code = 1160681951) 9.2 mg/dL 8.6-10.6 T PROTEIN (test code = 2149556662) 7.0 g/dL 6.3-8.2 ALBUMIN (test code = 6283904601) 4.2 g/dL 3.5-5.0 ALK PHOS (test code = 5314447984) 118 U/L 34-122 ALTv (test code = 1742-6) 34 U/L 5-35 AST(SGOT) (test code = 2248150931) 34 U/L 13-40 eGFR (test code = 00287-2) 108.1 mL/min/1.73m2 ZAINAB (test code = ZAINAB) [...] or urine or abnormalities in imaging tests). [facility]. METABOLIC PANEL ([id number])2022-11-03 17:25:32* Test Item Value Reference Range Interpretation Comme nts NA (test code = 1177999568) 139 mmol/L 135-145 K (test code = 3994764293) 4.2 mmol/L 3.5-5.0 CL (test code = 2228083575) 105 mmol/L 98-108 CO2 TOTAL (test code = 8206678842) 26 mmol/L 23-31 AGAP (test code = 2802171111) 8 2-16 BUN (test code = 5113976854) 9 mg/dL 7-23 GLUCOSE (test code = 9722131542) 93 mg/dL 70-110 CREATININE (test code = 3981528445) 0.60 mg/dL 0.50-1.04 TOTAL BILI (test code = 9100709160) 0.2 mg/dL 0.1-1.1 CALCIUM (test code = 3893717550) 9.2 mg/dL 8.6-10.6 T PROTEIN (test code = 6853061076) 7.0 g/dL 6.3-8.2 ALBUMIN (test code = 9020838552) 4.2 g/dL 3.5-5.0 ALK PHOS (test code = 0434762505) 118 U/L 34-122 ALTv (test code = 1742-6) 34 U/L 5-35 AST(SGOT) (test code = 8465154402) 34 U/L 13-40 eGFR (test code = 80009-6) 108.1 mL/min/1.73m2 ZAINAB (test code = ZAINAB) [...] or [facility] abnormalities [facility] tests). [facility] (12638)2022-11-03 17:25:32* Test Item Value Reference Range Interpretation Comme nts NA (test code = 9575102540) 139 mmol/L 135-145 K (test code = 3991765745) 4.2 mmol/L 3.5-5.0 CL (test code = 1520866173) 105 mmol/L 98-108 CO2 TOTAL (test code = 0493923784) 26 mmol/L 23-31 AGAP (test code = 5162783515) 8 2-16 BUN (test code = 7088453780) 9 mg/dL 7-23 GLUCOSE (test code = 8285100144) 93 mg/dL 70-110 CREATININE (test code = 0798033103) 0.60 mg/dL 0.50-1.04 TOTAL BILI (test code = 8673941657) 0.2 mg/dL 0.1-1.1 CALCIUM (test code = 9776910185) 9.2 mg/dL 8.6-10.6 T PROTEIN (test code = 5876946851) 7.0 g/dL 6.3-8.2 ALBUMIN (test code = 7046785929) 4.2 g/dL 3.5-5.0 ALK PHOS (test code = 2783633556) 118 U/L 34-122 ALTv (test code = 1742-6) 34 U/L 5-35 AST(SGOT) (test code = 9551479721) 34 U/L 13-40 eGFR (test code = 65166-0) 108.1 mL/min/1.73m2 ZAINAB (test code = ZAINAB) [...] in imaging tests). [facility] [id number] 17:18:52* Test Item Value Reference Range Interpretation Comme nts WBC (test code = 6690-2) 7.41 See_Comment [Automated [employer]] The system which generated this result transmitted [...] g/dL 31.6-35.1 L RDW-SD (test code = 02392-5) 46.2 fL 39.0-49.9 RDW-CV (test code = 788-0) 17.9 % 12.0-15.5 H PLT (test code = 777-3) 304 See_Comment [Automated messa ge] The system which generated this result transmitted reference range: 166 - 358 10*3/?L. The reference range was not used to interpret this result as normal/abnormal. MPV (test code = 92255-0) 11.0 fL 9.5-12.9 NRBC/100 WBC (test code = 8979786620) 0.0 See_Comment [Automated [employer] ssage] The system which generated this result transmitted reference range: 0.0 - 10.0 /100 WBCs. The reference range was not used to interpret this result as normal/abnormal. NRBC x10^3 (test code = 3122779067) See_Comment [Automated messa ge] The system which generated this result transmitted reference range: 10*3/?L. The reference range was not used to interpret this result as normal/abnormal. GRAN MAT (NEUT) % (test code = 770-8) 68.6 % IMM GRAN % (test code = 9562556579) 0.70 % LYMPH % (test code = 736-9) 19.8 % MONO % (test code = 5905-5) 5.3 % EOS % (test code = 713-8) 5.1 % BASO % (test code = 706-2) 0.5 % GRAN MAT x10^3(ANC) (test code = 6052142208) 5.08 10*3/uL 1.88-7.09 IMM GRAN x10^3 (test code = 7850821593) 0.05 10*3/uL 0.00-0.06 LYMPH x10^3 (test code = 731-0) 1.47 10*3/uL 1.32-3.29 MONO x10^3 (test code = 742-7) 0.39 10*3/uL 0.33-0.92 EOS x10^3 (test code = 711-2) 0.38 10*3/uL 0.03-0.39 BASO x10^3 (test code = 704-7) 0.04 10*3/uL 0.01-0.07 Lab Interpretation (test code = 87792-7) Abnormal General acute hospital WITH [id number] 17:18:52* Test Item Value Reference Range Interpretation Comme nts WBC (test code = 6690-2) 7.41 See_Comment [Automated [employer]] The system which generated this result transmitted reference range: 4.30 - 11.10 10*3/?L. The reference range was not used to interpret this result as normal/abnormal. RBC (test code = 789-8) 4.20 See_Comment [Automated [employer]] The system which generated this result [...] g/dL 31.6-35.1 L RDW-SD (test code = 14755-8) 46.2 fL 39.0-49.9 RDW-CV (test code = 788-0) 17.9 % 12.0-15.5 H PLT (test code = 777-3) 304 See_Comment [Automated messa ge] The system which generated this result transmitted reference range: 166 - 358 10*3/?L. The reference range was not used to interpret this result as normal/abnormal. MPV (test code = 49996-6) 11.0 fL 9.5-12.9 NRBC/100 WBC (test code = 6451900077) 0.0 See_Comment [Automated [employer] ssage] The system which generated this result transmitted reference range: 0.0 - 10.0 /100 WBCs. The reference range was not used to interpret this result as normal/abnormal. NRBC x10^3 (test code = 2252426056) See_Comment [Automated messa ge] The system which generated this result transmitted reference range: 10*3/?L. The reference range was not used to interpret this result as normal/abnormal. GRAN MAT (NEUT) % (test code = 770-8) 68.6 % IMM GRAN % (test code = 1428177355) 0.70 % LYMPH % (test code = 736-9) 19.8 % MONO % (test code = 5905-5) 5.3 % EOS % (test code = 713-8) 5.1 % BASO % (test code = 706-2) 0.5 % GRAN MAT x10^3(ANC) (test code = 0443103024) 5.08 10*3/uL 1.88-7.09 IMM GRAN x10^3 (test code = 3366529933) 0.05 10*3/uL 0.00-0.06 LYMPH x10^3 (test code = 731-0) 1.47 10*3/uL 1.32-3.29 MONO x10^3 (test code = 742-7) 0.39 10*3/uL 0.33-0.92 EOS x10^3 (test code = 711-2) 0.38 10*3/uL 0.03-0.39 BASO x10^3 (test code = 704-7) 0.04 10*3/uL 0.01-0.07 Lab Interpretation (test code = 51129-3) Abnormal General acute hospital WITH [id number] 17:18:52* Test Item Value Reference Range Interpretation [...] g/dL 31.6-35.1 L RDW-SD (test code = 97279-9) 46.2 fL 39.0-49.9 RDW-CV (test code = 788-0) 17.9 % 12.0-15.5 H PLT (test code = 777-3) 304 See_Comment [Automated messa ge] The system which generated this result transmitted reference range: 166 - 358 10*3/?L. The reference range was not used to interpret this result as normal/abnormal. MPV (test code = 14419-3) 11.0 fL 9.5-12.9 NRBC/100 WBC (test code = 3817756981) 0.0 See_Comment [Automated [employer] ssage] The system which generated this result transmitted reference range: 0.0 - 10.0 /100 WBCs. The reference range was not used to interpret this result as normal/abnormal. NRBC x10^3 (test code = 8196562391) See_Comment [Automated messa ge] The system which generated this result transmitted reference range: 10*3/?L. The reference range was not used to interpret this result as normal/abnormal. GRAN MAT (NEUT) % (test code = 770-8) 68.6 % IMM GRAN % (test code = 5219048114) 0.70 % LYMPH % (test code = 736-9) 19.8 % MONO % (test code = 5905-5) 5.3 % EOS % (test code = 713-8) 5.1 % BASO % (test code = 706-2) 0.5 % GRAN MAT x10^3(ANC) (test code = 7755060541) 5.08 10*3/uL 1.88-7.09 IMM GRAN x10^3 (test code = 1159548884) 0.05 10*3/uL 0.00-0.06 LYMPH x10^3 (test code = 731-0) 1.47 10*3/uL 1.32-3.29 MONO x10^3 (test code = 742-7) 0.39 10*3/uL 0.33-0.92 EOS x10^3 (test code = 711-2) 0.38 10*3/uL 0.03-0.39 BASO x10^3 (test code = 704-7) 0.04 10*3/uL 0.01-0.07 Lab Interpretation (test code = 86214-2) Abnormal General acute hospital WITH [id number] 17:18:52* Test Item Value Reference Range Interpretation Comme nts WBC (test code = 6690-2) 7.41 See_Comment [Automated [employer]] The system which generated this result transmitted reference range: 4.30 - 11.10 10*3/?L. The reference range was not used to interpret this result as normal/abnormal. RBC (test code = 789-8) 4.20 See_Comment [Automated [employer]] The system which generated this result [...] g/dL 31.6-35.1 L RDW-SD (test code = 76341-3) 46.2 fL 39.0-49.9 RDW-CV (test code = 788-0) 17.9 % 12.0-15.5 H PLT (test code = 777-3) 304 See_Comment [Automated messa ge] The system which generated this result transmitted reference range: 166 - 358 10*3/?L. The reference range was not used to interpret this result as normal/abnormal. MPV (test code = 22946-8) 11.0 fL 9.5-12.9 NRBC/100 WBC (test code = 5078717823) 0.0 See_Comment [Automated [employer] ssage] The system which generated this result transmitted reference range: 0.0 - 10.0 /100 WBCs. The reference range was not used to interpret this result as normal/abnormal. NRBC x10^3 (test code = 8158064907) See_Comment [Automated messa ge] The system which generated this result transmitted reference range: 10*3/?L. The reference range was not used to interpret this result as normal/abnormal. GRAN MAT (NEUT) % (test code = 770-8) 68.6 % IMM GRAN % (test code = 0326203648) 0.70 % LYMPH % (test code = 736-9) 19.8 % MONO % (test code = 5905-5) 5.3 % EOS % (test code = 713-8) 5.1 % BASO % (test code = 706-2) 0.5 % GRAN MAT x10^3(ANC) (test code = 9325848477) 5.08 10*3/uL 1.88-7.09 IMM GRAN x10^3 (test code = 9057451227) 0.05 10*3/uL 0.00-0.06 LYMPH x10^3 (test code = 731-0) 1.47 10*3/uL 1.32-3.29 MONO x10^3 (test code = 742-7) 0.39 10*3/uL 0.33-0.92 EOS x10^3 (test code = 711-2) 0.38 10*3/uL 0.03-0.39 BASO x10^3 (test code = 704-7) 0.04 10*3/uL 0.01-0.07 Lab Interpretation (test code = 90070-9) Abnormal General acute hospital WITH [id number] 17:18:52* Test Item Value Reference Range Interpretation [...] g/dL 31.6-35.1 L RDW-SD (test code = 17661-4) 46.2 fL 39.0-49.9 RDW-CV (test code = 788-0) 17.9 % 12.0-15.5 H PLT (test code = 777-3) 304 See_Comment [Automated messa ge] The system which generated this result transmitted reference range: 166 - 358 10*3/?L. The reference range was not used to interpret this result as normal/abnormal. MPV (test code = 85005-0) 11.0 fL 9.5-12.9 NRBC/100 WBC (test code = 2133529577) 0.0 See_Comment [Automated me ssage] The system which generated this result transmitted reference range: 0.0 - 10.0 /100 WBCs. The reference range was not used to interpret this result as normal/abnormal. NRBC x10^3 (test code = 5450154646) See_Comment [Automated messa ge] The system which generated this result transmitted reference range: 10*3/?L. The reference range was not used to interpret this result as normal/abnormal. GRAN MAT (NEUT) % (test code = 770-8) 68.6 % IMM GRAN % (test code = 1971854131) 0.70 % LYMPH % (test code = 736-9) 19.8 % MONO % (test code = 5905-5) 5.3 % EOS % (test code = 713-8) 5.1 % BASO % (test code = 706-2) 0.5 % GRAN MAT x10^3(ANC) (test code = 2906141665) 5.08 10*3/uL 1.88-7.09 IMM GRAN x10^3 (test code = 5745679124) 0.05 10*3/uL 0.00-0.06 LYMPH x10^3 (test code = 731-0) 1.47 10*3/uL 1.32-3.29 MONO x10^3 (test code = 742-7) 0.39 10*3/uL 0.33-0.92 EOS x10^3 (test code = 711-2) 0.38 10*3/uL 0.03-0.39 BASO x10^3 (test code = 704-7) 0.04 10*3/uL 0.01-0.07 Lab Interpretation (test code = 40899-9) Abnormal General acute hospital WITH [id number] 17:18:52* Test Item Value Reference Range Interpretation [...] g/dL 31.6-35.1 L RDW-SD (test code = 94298-8) 46.2 fL 39.0-49.9 RDW-CV (test code = 788-0) 17.9 % 12.0-15.5 H PLT (test code = 777-3) 304 See_Comment [Automated messa ge] The system which generated this result transmitted reference range: 166 - 358 10*3/?L. The reference range was not used to interpret this result as normal/abnormal. MPV (test code = 88708-1) 11.0 fL 9.5-12.9 NRBC/100 WBC (test code = 7552447443) 0.0 See_Comment [Automated [employer] ssage] The system which generated this result transmitted reference range: 0.0 - 10.0 /100 WBCs. The reference range was not used to interpret this result as normal/abnormal. NRBC x10^3 (test code = 9910064226) See_Comment [Automated messa ge] The system which generated this result transmitted reference range: 10*3/?L. The reference range was not used to interpret this result as normal/abnormal. GRAN MAT (NEUT) % (test code = 770-8) 68.6 % IMM GRAN % (test code = 5803712625) 0.70 % LYMPH % (test code = 736-9) 19.8 % MONO % (test code = 5905-5) 5.3 % EOS % (test code = 713-8) 5.1 % BASO % (test code = 706-2) 0.5 % GRAN MAT x10^3(ANC) (test code = 8529216828) 5.08 10*3/uL 1.88-7.09 IMM GRAN x10^3 (test code = 4108232300) 0.05 10*3/uL 0.00-0.06 LYMPH x10^3 (test code = 731-0) 1.47 10*3/uL 1.32-3.29 MONO x10^3 (test code = 742-7) 0.39 10*3/uL 0.33-0.92 EOS x10^3 (test code = 711-2) 0.38 10*3/uL 0.03-0.39 BASO x10^3 (test code = 704-7) 0.04 10*3/uL 0.01-0.07 Lab Interpretation (test code = 68660-6) Abnormal General acute hospital WITH [id number] 17:18:52* Test Item Value Reference Range Interpretation Comme nts WBC (test code = 6690-2) 7.41 See_Comment [Panna] The system which generated this result transmitted reference range: 4.30 - 11.10 10*3/?L. The reference range was not used to interpret this result as normal/abnormal. RBC (test code = 789-8) 4.20 See_Comment [[employer]anna] The system which generated this result transmitted [...] g/dL 31.6-35.1 L RDW-SD (test code = 75382-6) 46.2 fL 39.0-49.9 RDW-CV (test code = 788-0) 17.9 % 12.0-15.5 H PLT (test code = 777-3) 304 See_Comment [Automated messa ge] The system which generated this result transmitted reference range: 166 - 358 10*3/?L. The reference range was not used to interpret this result as normal/abnormal. MPV (test code = 30384-5) 11.0 fL 9.5-12.9 NRBC/100 WBC (test code = 6414372035) 0.0 See_Comment [Automated me ssage] The system which generated this result transmitted reference range: 0.0 - 10.0 /100 WBCs. The reference range was not used to interpret this result as normal/abnormal. NRBC x10^3 (test code = 5522770318) See_Comment [Automated messa ge] The system which generated this result transmitted reference range: 10*3/?L. The reference range was not used to interpret this result as normal/abnormal. GRAN MAT (NEUT) % (test code = 770-8) 68.6 % IMM GRAN % (test code = 0190515058) 0.70 % LYMPH % (test code = 736-9) 19.8 % MONO % (test code = 5905-5) 5.3 % EOS % (test code = 713-8) 5.1 % BASO % (test code = 706-2) 0.5 % GRAN MAT x10^3(ANC) (test code = 8150267516) 5.08 10*3/uL 1.88-7.09 IMM GRAN x10^3 (test code = 7591175447) 0.05 10*3/uL 0.00-0.06 LYMPH x10^3 (test code = 731-0) 1.47 10*3/uL 1.32-3.29 MONO x10^3 (test code = 742-7) 0.39 10*3/uL 0.33-0.92 EOS x10^3 (test code = 711-2) 0.38 10*3/uL 0.03-0.39 BASO x10^3 (test code = 704-7) 0.04 10*3/uL 0.01-0.07 Lab Interpretation (test code = 72031-2) Abnormal General acute hospital WITH [id number] 17:18:52* Test Item Value Reference Range Interpretation [...] g/dL 31.6-35.1 L RDW-SD (test code = 66817-1) 46.2 fL 39.0-49.9 RDW-CV (test code = 788-0) 17.9 % 12.0-15.5 H PLT (test code = 777-3) 304 See_Comment [Automated messa ge] The system which generated this result transmitted reference range: 166 - 358 10*3/?L. The reference range was not used to interpret this result as normal/abnormal. MPV (test code = 23107-2) 11.0 fL 9.5-12.9 NRBC/100 WBC (test code = 2286140151) 0.0 See_Comment [Automated [employer] ssage] The system which generated this result transmitted reference range: 0.0 - 10.0 /100 WBCs. The reference range was not used to interpret this result as normal/abnormal. NRBC x10^3 (test code = 7198173555) See_Comment [Automated messa ge] The system which generated this result transmitted reference range: 10*3/?L. The reference range was not used to interpret this result as normal/abnormal. GRAN MAT (NEUT) % (test code = 770-8) 68.6 % IMM GRAN % (test code = 5576523947) 0.70 % LYMPH % (test code = 736-9) 19.8 % MONO % (test code = 5905-5) 5.3 % EOS % (test code = 713-8) 5.1 % BASO % (test code = 706-2) 0.5 % GRAN MAT x10^3(ANC) (test code = 2956946521) 5.08 10*3/uL 1.88-7.09 IMM GRAN x10^3 (test code = 3631313310) 0.05 10*3/uL 0.00-0.06 LYMPH x10^3 (test code = 731-0) 1.47 10*3/uL 1.32-3.29 MONO x10^3 (test code = 742-7) 0.39 10*3/uL 0.33-0.92 EOS x10^3 (test code = 711-2) 0.38 10*3/uL 0.03-0.39 BASO x10^3 (test code = 704-7) 0.04 10*3/uL 0.01-0.07 Lab Interpretation (test code = 14556-9) Abnormal General acute hospital WITH [id number] 17:18:52* Test Item Value Reference Range Interpretation Comme nts WBC (test code = 6690-2) 7.41 See_Comment [Automated [employer] ge] The system which generated this result [...] g/dL 31.6-35.1 L RDW-SD (test code = 31659-7) 46.2 fL 39.0-49.9 RDW-CV (test code = 788-0) 17.9 % 12.0-15.5 H PLT (test code = 777-3) 304 See_Comment [Automated messa ge] The system which generated this result transmitted reference range: 166 - 358 10*3/?L. The reference range was not used to interpret this result as normal/abnormal. MPV (test code = 69848-6) 11.0 fL 9.5-12.9 NRBC/100 WBC (test code = 1923838988) 0.0 See_Comment [Automated [employer] ssage] The system which generated this result transmitted reference range: 0.0 - 10.0 /100 WBCs. The reference range was not used to interpret this result as normal/abnormal. NRBC x10^3 (test code = 1916972954) See_Comment [Automated messa ge] The system which generated this result transmitted reference range: 10*3/?L. The reference range was not used to interpret this result as normal/abnormal. GRAN MAT (NEUT) % (test code = 770-8) 68.6 % IMM GRAN % (test code = 2307499326) 0.70 % LYMPH % (test code = 736-9) 19.8 % MONO % (test code = 5905-5) 5.3 % EOS % (test code = 713-8) 5.1 % BASO % (test code = 706-2) 0.5 % GRAN MAT x10^3(ANC) (test code = 9159615587) 5.08 10*3/uL 1.88-7.09 IMM GRAN x10^3 (test code = 7124609828) 0.05 10*3/uL 0.00-0.06 LYMPH x10^3 (test code = 731-0) 1.47 10*3/uL 1.32-3.29 MONO x10^3 (test code = 742-7) 0.39 10*3/uL 0.33-0.92 EOS x10^3 (test code = 711-2) 0.38 10*3/uL 0.03-0.39 BASO x10^3 (test code = 704-7) 0.04 10*3/uL 0.01-0.07 Lab Interpretation (test code = 52610-1) Abnormal General acute hospital WITH [id number] 17:18:52* Test Item Value Reference Range Interpretation Comme nts WBC (test code = 6690-2) 7.41 See_Comment [Automated messa ge] The system which generated this result transmitted reference range: 4.30 - 11.10 10*3/?L. The reference range was not used to interpret this result as normal/abnormal. RBC (test code = 789-8) 4.20 See_Comment [Automated [employer] ge] The system which generated this result [...] g/dL 31.6-35.1 L RDW-SD (test code = 55325-1) 46.2 fL 39.0-49.9 RDW-CV (test code = 788-0) 17.9 % 12.0-15.5 H PLT (test code = 777-3) 304 See_Comment [Automated messa ge] The system which generated this result transmitted reference range: 166 - 358 10*3/?L. The reference range was not used to interpret this result as normal/abnormal. MPV (test code = 68801-4) 11.0 fL 9.5-12.9 NRBC/100 WBC (test code = 9064105847) 0.0 See_Comment [Automated [employer] ssage] The system which generated this result transmitted reference range: 0.0 - 10.0 /100 WBCs. The reference range was not used to interpret this result as normal/abnormal. NRBC x10^3 (test code = 0676659401) See_Comment [Automated messa ge] The system which generated this result transmitted reference range: 10*3/?L. The reference range was not used to interpret this result as normal/abnormal. GRAN MAT (NEUT) % (test code = 770-8) 68.6 % IMM GRAN % (test code = 2352007650) 0.70 % LYMPH % (test code = 736-9) 19.8 % MONO % (test code = 5905-5) 5.3 % EOS % (test code = 713-8) 5.1 % BASO % (test code = 706-2) 0.5 % GRAN MAT x10^3(ANC) (test code = 3930327802) 5.08 10*3/uL 1.88-7.09 IMM GRAN x10^3 (test code = 3957031371) 0.05 10*3/uL 0.00-0.06 LYMPH x10^3 (test code = 731-0) 1.47 10*3/uL 1.32-3.29 MONO x10^3 (test code = 742-7) 0.39 10*3/uL 0.33-0.92 EOS x10^3 (test code = 711-2) 0.38 10*3/uL 0.03-0.39 BASO x10^3 (test code = 704-7) 0.04 10*3/uL 0.01-0.07 Lab Interpretation (test code = 15853-5) Abnormal General acute hospital WITH [id number] 17:18:52* Test Item Value Reference Range Interpretation [...] g/dL 31.6-35.1 L RDW-SD (test code = 20810-4) 46.2 fL 39.0-49.9 RDW-CV (test code = 788-0) 17.9 % 12.0-15.5 H PLT (test code = 777-3) 304 See_Comment [Automated messa ge] The system which generated this result transmitted reference range: 166 - 358 10*3/?L. The reference range was not used to interpret this result as normal/abnormal. MPV (test code = 13066-4) 11.0 fL 9.5-12.9 NRBC/100 WBC (test code = 6417822556) 0.0 See_Comment [Automated [employer] ssage] The system which generated this result transmitted reference range: 0.0 - 10.0 /100 WBCs. The reference range was not used to interpret this result as normal/abnormal. NRBC x10^3 (test code = 3736746217) See_Comment [Automated [employer] ge] The system which generated this result transmitted reference range: 10*3/?L. The reference range was not used to interpret this result as normal/abnormal. GRAN MAT (NEUT) % (test code = 770-8) 68.6 % IMM GRAN % (test code = 2121524453) 0.70 % LYMPH % (test code = 736-9) 19.8 % MONO % (test code = 5905-5) 5.3 % EOS % (test code = 713-8) 5.1 % BASO % (test code = 706-2) 0.5 % GRAN MAT x10^3(ANC) (test code = 6591283737) 5.08 10*3/uL 1.88-7.09 IMM GRAN x10^3 (test code = 2421848251) 0.05 10*3/uL 0.00-0.06 LYMPH x10^3 (test code = 731-0) 1.47 10*3/uL 1.32-3.29 MONO x10^3 (test code = 742-7) 0.39 10*3/uL 0.33-0.92 EOS x10^3 (test code = 711-2) 0.38 10*3/uL 0.03-0.39 BASO x10^3 (test code = 704-7) 0.04 10*3/uL 0.01-0.07 Lab Interpretation (test code = 98301-5) Abnormal General acute hospital WITH [id number] 17:18:52* Test Item Value Reference Range Interpretation [...] g/dL 31.6-35.1 L RDW-SD (test code = 72151-3) 46.2 fL 39.0-49.9 RDW-CV (test code = 788-0) 17.9 % 12.0-15.5 H PLT (test code = 777-3) 304 See_Comment [Automated messa ge] The system which generated this result transmitted reference range: 166 - 358 10*3/?L. The reference range was not used to interpret this result as normal/abnormal. MPV (test code = 65173-8) 11.0 fL 9.5-12.9 NRBC/100 WBC (test code = 6940801581) 0.0 See_Comment [Automated [employer] ss[employer]] The system which generated this result transmitted reference range: 0.0 - 10.0 /100 WBCs. The reference range was not used to interpret this result as normal/abnormal. NRBC x10^3 (test code = 9000712046) See_Comment [Automated messa ge] The system which generated this result transmitted reference range: 10*3/?L. The reference range was not used to interpret this result as normal/abnormal. GRAN MAT (NEUT) % (test code = 770-8) 68.6 % IMM GRAN % (test code = 6466359490) 0.70 % LYMPH % (test code = 736-9) 19.8 % MONO % (test code = 5905-5) 5.3 % EOS % (test code = 713-8) 5.1 % BASO % (test code = 706-2) 0.5 % GRAN MAT x10^3(ANC) (test code = 2109930978) 5.08 10*3/uL 1.88-7.09 IMM GRAN x10^3 (test code = 4978907047) 0.05 10*3/uL 0.00-0.06 LYMPH x10^3 (test code = 731-0) 1.47 10*3/uL 1.32-3.29 MONO x10^3 (test code = 742-7) 0.39 10*3/uL 0.33-0.92 EOS x10^3 (test code = 711-2) 0.38 10*3/uL 0.03-0.39 BASO x10^3 (test code = 704-7) 0.04 10*3/uL 0.01-0.07 Lab Interpretation (test code = 92243-9) Abnormal General acute hospital WITH [id number] 17:18:52* Test Item Value Reference Range Interpretation [...] g/dL 31.6-35.1 L RDW-SD (test code = 77168-6) 46.2 fL 39.0-49.9 RDW-CV (test code = 788-0) 17.9 % 12.0-15.5 H PLT (test code = 777-3) 304 See_Comment [Automated [employer] ge] The system which generated this result transmitted reference range: 166 - 358 10*3/?L. The reference range was not used to interpret this result as normal/abnormal. MPV (test code = 26188-1) 11.0 fL 9.5-12.9 NRBC/100 WBC (test code = 8730308732) 0.0 See_Comment [Automated [employer] ssage] The system which generated this result transmitted reference range: 0.0 - 10.0 /100 WBCs. The reference range was not used to interpret this result as normal/abnormal. NRBC x10^3 (test code = 8026652817) See_Comment [Automated [employer] ge] The system which generated this result transmitted reference range: 10*3/?L. The reference range was not used to interpret this result as normal/abnormal. GRAN MAT (NEUT) % (test code = 770-8) 68.6 % IMM GRAN % (test code = 6612724654) 0.70 % LYMPH % (test code = 736-9) 19.8 % MONO % (test code = 5905-5) 5.3 % EOS % (test code = 713-8) 5.1 % BASO % (test code = 706-2) 0.5 % GRAN MAT x10^3(ANC) (test code = 8572688721) 5.08 10*3/uL 1.88-7.09 IMM GRAN x10^3 (test code = 8870883633) 0.05 10*3/uL 0.00-0.06 LYMPH x10^3 (test code = 731-0) 1.47 10*3/uL 1.32-3.29 MONO x10^3 (test code = 742-7) 0.39 10*3/uL 0.33-0.92 EOS x10^3 (test code = 711-2) 0.38 10*3/uL 0.03-0.39 BASO x10^3 (test code = 704-7) 0.04 10*3/uL 0.01-0.07 Lab Interpretation (test code = 94888-0) Abnormal General acute hospital WITH [id number] 17:18:52* Test Item Value Reference Range Interpretation Comme nts WBC (test code = 6690-2) 7.41 See_Comment [Automated [employer]] The system which generated this result transmitted reference range: 4.30 - 11.10 10*3/?L. The reference range was not used to interpret this result as normal/abnormal. RBC (test code = 789-8) 4.20 See_Comment [Automated [employer]] The system which generated this result transmitted [...] g/dL 31.6-35.1 L RDW-SD (test code = 97722-8) 46.2 fL 39.0-49.9 RDW-CV (test code = 788-0) 17.9 % 12.0-15.5 H PLT (test code = 777-3) 304 See_Comment [Automated messa ge] The system which generated this result transmitted reference range: 166 - 358 10*3/?L. The reference range was not used to interpret this result as normal/abnormal. MPV (test code = 87382-1) 11.0 fL 9.5-12.9 NRBC/100 WBC (test code = 7053004662) 0.0 See_Comment [Automated me ssage] The system which generated this result transmitted reference range: 0.0 - 10.0 /100 WBCs. The reference range was not used to interpret this result as normal/abnormal. NRBC x10^3 (test code = 8700962136) See_Comment [Automated messa ge] The system which generated this result transmitted reference range: 10*3/?L. The reference range was not used to interpret this result as normal/abnormal. GRAN MAT (NEUT) % (test code = 770-8) 68.6 % IMM GRAN % (test code = 6690009311) 0.70 % LYMPH % (test code = 736-9) 19.8 % MONO % (test code = 5905-5) 5.3 % EOS % (test code = 713-8) 5.1 % BASO % (test code = 706-2) 0.5 % GRAN MAT x10^3(ANC) (test code = 3459735370) 5.08 10*3/uL 1.88-7.09 IMM GRAN x10^3 (test code = 2298465222) 0.05 10*3/uL 0.00-0.06 LYMPH x10^3 (test code = 731-0) 1.47 10*3/uL 1.32-3.29 MONO x10^3 (test code = 742-7) 0.39 10*3/uL 0.33-0.92 EOS x10^3 (test code = 711-2) 0.38 10*3/uL 0.03-0.39 BASO x10^3 (test code = 704-7) 0.04 10*3/uL 0.01-0.07 Lab Interpretation (test code = 94122-9) Abnormal General acute hospital WITH [id number] 17:18:52* Test Item Value Reference Range Interpretation [...] g/dL 31.6-35.1 L RDW-SD (test code = 31158-6) 46.2 fL 39.0-49.9 RDW-CV (test code = 788-0) 17.9 % 12.0-15.5 H PLT (test code = 777-3) 304 See_Comment [Automated messa ge] The system which generated this result transmitted reference range: 166 - 358 10*3/?L. The reference range was not used to interpret this result as normal/abnormal. MPV (test code = 38624-0) 11.0 fL 9.5-12.9 NRBC/100 WBC (test code = 9805400803) 0.0 See_Comment [Automated [employer] ss[employer]] The system which generated this result transmitted reference range: 0.0 - 10.0 /100 WBCs. The reference range was not used to interpret this result as normal/abnormal. NRBC x10^3 (test code = 8347947959) See_Comment [Automated [employer] ge] The system which generated this result transmitted reference range: 10*3/?L. The reference range was not used to interpret this result as normal/abnormal. GRAN MAT (NEUT) % (test code = 770-8) 68.6 % IMM GRAN % (test code = 7836099169) 0.70 % LYMPH % (test code = 736-9) 19.8 % MONO % (test code = 5905-5) 5.3 % EOS % (test code = 713-8) 5.1 % BASO % (test code = 706-2) 0.5 % GRAN MAT x10^3(ANC) (test code = 6316805215) 5.08 10*3/uL 1.88-7.09 IMM GRAN x10^3 (test code = 3591137179) 0.05 10*3/uL 0.00-0.06 LYMPH x10^3 (test code = 731-0) 1.47 10*3/uL 1.32-3.29 MONO x10^3 (test code = 742-7) 0.39 10*3/uL 0.33-0.92 EOS x10^3 (test code = 711-2) 0.38 10*3/uL 0.03-0.39 BASO x10^3 (test code = 704-7) 0.04 10*3/uL 0.01-0.07 Lab Interpretation (test code = 38688-3) Abnormal General acute hospital WITH [id number] 17:18:52* Test Item Value Reference Range Interpretation Comme nts WBC (test code = 6690-2) 7.41 See_Comment [Automated [employer] ge] The system which generated this result transmitted reference range: 4.30 - 11.10 10*3/?L. The reference range was not used to interpret this result as normal/abnormal. RBC (test code = 789-8) 4.20 See_Comment [Automated [employer] ge] The system which generated this result [...] g/dL 31.6-35.1 L RDW-SD (test code = 54143-7) 46.2 fL 39.0-49.9 RDW-CV (test code = 788-0) 17.9 % 12.0-15.5 H PLT (test code = 777-3) 304 See_Comment [Automated [employer] ge] The system which generated this result transmitted reference range: 166 - 358 10*3/?L. The reference range was not used to interpret this result as normal/abnormal. MPV (test code = 45295-4) 11.0 fL 9.5-12.9 NRBC/100 WBC (test code = 3320329963) 0.0 See_Comment [Automated [employer] ss[employer]] The system which generated this result transmitted reference range: 0.0 - 10.0 /100 WBCs. The reference range was not used to interpret this result as normal/abnormal. NRBC x10^3 (test code = 4949055665) See_Comment [Automated [employer] ge] The system which generated this result transmitted reference range: 10*3/?L. The reference range was not used to interpret this result as normal/abnormal. GRAN MAT (NEUT) % (test code = 770-8) 68.6 % IMM GRAN % (test code = 3354557075) 0.70 % LYMPH % (test code = 736-9) 19.8 % MONO % (test code = 5905-5) 5.3 % EOS % (test code = 713-8) 5.1 % BASO % (test code = 706-2) 0.5 % GRAN MAT x10^3(ANC) (test code = 5813009327) 5.08 10*3/uL 1.88-7.09 IMM GRAN x10^3 (test code = 9427904815) 0.05 10*3/uL 0.00-0.06 LYMPH x10^3 (test code = 731-0) 1.47 10*3/uL 1.32-3.29 MONO x10^3 (test code = 742-7) 0.39 10*3/uL 0.33-0.92 EOS x10^3 (test code = 711-2) 0.38 10*3/uL 0.03-0.39 BASO x10^3 (test code = 704-7) 0.04 10*3/uL 0.01-0.07 Lab Interpretation (test code = 41012-3) Abnormal General acute hospital WITH [id number] 17:18:52* Test Item Value Reference Range Interpretation Comme nts WBC (test code = 6690-2) 7.41 See_Comment [Automated [employer] ge] The system which generated this result [...] g/dL 31.6-35.1 L RDW-SD (test code = 85779-0) 46.2 fL 39.0-49.9 RDW-CV (test code = 788-0) 17.9 % 12.0-15.5 H PLT (test code = 777-3) 304 See_Comment [Automated messa ge] The system which generated this result transmitted reference range: 166 - 358 10*3/?L. The reference range was not used to interpret this result as normal/abnormal. MPV (test code = 72966-4) 11.0 fL 9.5-12.9 NRBC/100 WBC (test code = 9255490097) 0.0 See_Comment [Automated me ssage] The system which generated this result transmitted reference range: 0.0 - 10.0 /100 WBCs. The reference range was not used to interpret this result as normal/abnormal. NRBC x10^3 (test code = 2132637522) See_Comment [Automated messa ge] The system which generated this result transmitted reference range: 10*3/?L. The reference range was not used to interpret this result as normal/abnormal. GRAN MAT (NEUT) % (test code = 770-8) 68.6 % IMM GRAN % (test code = 5599701779) 0.70 % LYMPH % (test code = 736-9) 19.8 % MONO % (test code = 5905-5) 5.3 % EOS % (test code = 713-8) 5.1 % BASO % (test code = 706-2) 0.5 % GRAN MAT x10^3(ANC) (test code = 8585344234) 5.08 10*3/uL 1.88-7.09 IMM GRAN x10^3 (test code = 6686186063) 0.05 10*3/uL 0.00-0.06 LYMPH x10^3 (test code = 731-0) 1.47 10*3/uL 1.32-3.29 MONO x10^3 (test code = 742-7) 0.39 10*3/uL 0.33-0.92 EOS x10^3 (test code = 711-2) 0.38 10*3/uL 0.03-0.39 BASO x10^3 (test code = 704-7) 0.04 10*3/uL 0.01-0.07 Lab Interpretation (test code = 51572-1) Abnormal General acute hospital WITH [id number] 17:18:52* Test Item Value Reference Range Interpretation Comme nts WBC (test code = 6690-2) 7.41 See_Comment [Automated messa ge] The system which generated this result transmitted reference range: 4.30 - 11.10 10*3/?L. The reference range was not used to interpret this result as normal/abnormal. RBC (test code = 789-8) 4.20 See_Comment [Automated [employer] ge] The system which generated this result [...] g/dL 31.6-35.1 L RDW-SD (test code = 75556-9) 46.2 fL 39.0-49.9 RDW-CV (test code = 788-0) 17.9 % 12.0-15.5 H PLT (test code = 777-3) 304 See_Comment [Automated [employer] ge] The system which generated this result transmitted reference range: 166 - 358 10*3/?L. The reference range was not used to interpret this result as normal/abnormal. MPV (test code = 93848-1) 11.0 fL 9.5-12.9 NRBC/100 WBC (test code = 0766301141) 0.0 See_Comment [Automated [employer] ssage] The system which generated this result transmitted reference range: 0.0 - 10.0 /100 WBCs. The reference range was not used to interpret this result as normal/abnormal. NRBC x10^3 (test code = 7346331285) See_Comment [Automated [employer] ge] The system which generated this result transmitted reference range: 10*3/?L. The reference range was not used to interpret this result as normal/abnormal. GRAN MAT (NEUT) % (test code = 770-8) 68.6 % IMM GRAN % (test code = 4343359971) 0.70 % LYMPH % (test code = 736-9) 19.8 % MONO % (test code = 5905-5) 5.3 % EOS % (test code = 713-8) 5.1 % BASO % (test code = 706-2) 0.5 % GRAN MAT x10^3(ANC) (test code = 0197041003) 5.08 10*3/uL 1.88-7.09 IMM GRAN x10^3 (test code = 6235519321) 0.05 10*3/uL 0.00-0.06 LYMPH x10^3 (test code = 731-0) 1.47 10*3/uL 1.32-3.29 MONO x10^3 (test code = 742-7) 0.39 10*3/uL 0.33-0.92 EOS x10^3 (test code = 711-2) 0.38 10*3/uL 0.03-0.39 BASO x10^3 (test code = 704-7) 0.04 10*3/uL 0.01-0.07 Lab Interpretation (test code = 20141-1) Abnormal [facility] [id number] 16:24:00* Test Item Value Reference Range Interpretation Comme nts POCT PREG (test code = 1605) Negative On board controls acceptable with C Line (test code = 3574) Yes POCT PREG LOT # (test code = 3575) [id number] POCT PREG TEST DATE ( test code = 357) 04-11-2024 Lab Interpretation (test cod e = 54852-1) Normal [facility] [id number] 16:24:00* Test Item Value Reference Range Interpretation Comme nts POCT PREG (test code = 1605) Negative On board controls acceptable with C Line (test code = 3574) Yes POCT PREG LOT # (test code = 3575) [id number] POCT PREG TEST DATE ( test code = 3576) 04-11-2024 Lab Interpretation (test cod e = 17701-2) Normal [facility] [id number] 16:24:00* Test Item Value Reference Range Interpretation Comme nts POCT PREG (test code = 1605) Negative On board controls acceptable with C Line (test code = 3574) Yes POCT PREG LOT # (test code = 3575) [id number] POCT PREG TEST DATE ( test code = 3576) 04-11-2024 Lab Interpretation (test cod e = 10336-3) [facility] [id number] 16:24:00* Test Item Value Reference Range Interpretation Comme nts POCT PREG (test code = 1605) Negative On board controls acceptable with C Line (test code = 3574) Yes POCT PREG LOT # (test code = 3575) [id number] POCT PREG TEST DATE ( test code = 3576) 04-11-2024 Lab Interpretation (test cod e = 55717-6) [facility] [id number] 16:24:00* Test Item Value Reference Range Interpretation Comme nts POCT PREG (test code = 1605) Negative On board controls acceptable with C Line (test code = 3574) Yes POCT PREG LOT # (test code = 3575) [id number] POCT PREG TEST DATE ( test code = 3576) 04-11-2024 Lab Interpretation (test cod e = 90790-8) [facility] [id number] 16:24:00* Test Item Value Reference Range Interpretation Comme nts POCT PREG (test code = 1605) Negative On board controls acceptable with C Line (test code = 3574) Yes POCT PREG LOT # (test code = 3575) [id number] POCT PREG TEST DATE ( test code = 3576) 04-11-2024 Lab Interpretation (test cod e = 18413-5) [facility] [id number] 16:24:00* Test Item Value Reference Range Interpretation Comme nts POCT PREG (test code = 1605) Negative On board controls acceptable with C Line (test code = 3574) Yes POCT PREG LOT # (test code = 3575) [id number] POCT PREG TEST DATE ( test code = 3576) 04-11-2024 Lab Interpretation (test cod e = 61568-6) [facility] [id number] 16:24:00* Test Item Value Reference Range Interpretation Comme nts POCT PREG (test code = 1605) Negative On board controls acceptable with C Line (test code = 3574) Yes POCT PREG LOT # (test code = 3575) [id number] POCT PREG TEST DATE ( test code = 3576) 04-11-2024 Lab Interpretation (test cod e = 12959-9) [facility] [id number] 16:24:00* Test Item Value Reference Range Interpretation Comme nts POCT PREG (test code = 1605) Negative On board controls acceptable with C Line (test code = 3574) Yes POCT PREG LOT # (test code = 3575) [id number] POCT PREG TEST DATE ( test code = 3576) 04-11-2024 Lab Interpretation (test cod e = 60271-0) [facility] [id number] 16:24:00* Test Item Value Reference Range Interpretation Comme nts POCT PREG (test code = 1605) Negative On board controls acceptable with C Line (test code = 3574) Yes POCT PREG LOT # (test code = 3575) [id number] POCT PREG TEST DATE ( test code = 3576) 04-11-2024 Lab Interpretation (test cod e = 58108-9) [facility] [id number] 16:24:00* Test Item Value Reference Range Interpretation Comme nts POCT PREG (test code = 1605) Negative On board controls acceptable with C Line (test code = 3574) Yes POCT PREG LOT # (test code = 3575) 091301 POCT PREG TEST DATE ( test code = 3576) 04-11-2024 Lab Interpretation (test cod e = 02476-5) [facility] [id number] 16:24:00* Test Item Value Reference Range Interpretation Comme nts POCT PREG (test code = 1605) Negative On board controls acceptable with C Line (test code = 3574) Yes POCT PREG LOT # (test code = 3575) [id number] POCT PREG TEST DATE ( test code = 3576) 04-11-2024 Lab Interpretation (test cod e = 67541-4) [facility] [id number] 16:24:00* Test Item Value Reference Range Interpretation Comme nts POCT PREG (test code = 1605) Negative On board controls acceptable with C Line (test code = 3574) Yes POCT PREG LOT # (test code = 3575) [id number] POCT PREG TEST DATE ( test code = 3576) 04-11-2024 Lab Interpretation (test cod e = 52427-4) [facility] [id number] 16:24:00* Test Item Value Reference Range Interpretation Comme nts POCT PREG (test code = 1605) Negative On board controls acceptable with C Line (test code = 3574) Yes POCT PREG LOT # (test code = 3575) [id number] POCT PREG TEST DATE ( test code = 3576) 04-11-2024 Lab Interpretation (test cod e = 39987-0) [facility] [id number] 16:24:00* Test Item Value Reference Range Interpretation Comme nts POCT PREG (test code = 1605) Negative On board controls acceptable with C Line (test code = 3574) Yes POCT PREG LOT # (test code = 3575) [id number] POCT PREG TEST DATE ( test code = 3576) 04-11-2024 Lab Interpretation (test cod e = 13829-1) [facility] [id number] 16:24:00* Test Item Value Reference Range Interpretation Comme nts POCT PREG (test code = 1605) Negative On board controls acceptable with C Line (test code = 3574) Yes POCT PREG LOT # (test code = 3575) [id number] POCT PREG TEST DATE ( test code = 3576) 04-11-2024 Lab Interpretation (test cod e = 68539-2) [facility] [id number] 16:24:00* Test Item Value Reference Range Interpretation Comme nts POCT PREG (test code = 1605) Negative On board controls acceptable with C Line (test code = 3574) Yes POCT PREG LOT # (test code = 3575) [id number] POCT PREG TEST DATE ( test code = 3576) 04-11-2024 Lab Interpretation (test cod e = 06449-4) [facility] [id number] 16:24:00* Test Item Value Reference Range Interpretation Comme nts POCT PREG (test code = 1605) Negative On board controls acceptable with C Line (test code = 3574) Yes POCT PREG LOT # (test code = 3575) [id number] POCT PREG TEST DATE ( test code = 3576) 04-11-2024 Lab Interpretation (test cod e = 29508-2) Normal [facility] ONLY CELIAC SCREEN [id number] 19:09:14 * Test Item Value Reference Range Interpretation Comme nts Tissue Transglutaminase (tTG) Ab, IgA Interpretation (test code = 48504-7) Negative Negative Deamidated Gliadin Peptide (DGP) Ab, IgA Interpretation (test code = 04717-7) Negative Negative Tissue Transglutaminase (tTG) Ab, IgA (test code = 7502021475) <=7.0 Deamidated Gliadin Peptide (DGP) Ab, IgA (test code = 6595537499) 0.4 U/mL <=7.0 ZAINAB (test code = ZAINAB) < 7 U/mL ? Negative7 - 10 U/mL ?Equivocal> 10 U/mL ?Positive In case of equivocal results, we recommend to retest the patient after 8 -12 weeks. Lab Interpretation (test code = 49913-1) Normal [facility] ONLY CELIAC SCREEN [id number] 19:09:14 * Test Item Value Reference Range Interpretation Comme nts Tissue Transglutaminase (tTG) Ab, IgA Interpretation (test code = 98680-6) Negative Negative Deamidated Gliadin Peptide (DGP) Ab, IgA Interpretation (test code = 87905-9) Negative Negative Tissue Transglutaminase (tTG) Ab, IgA (test code = 9354929882) <=7.0 Deamidated Gliadin Peptide (DGP) Ab, IgA (test code = 3889452714) 0.4 U/mL <=7.0 ZAINAB (test code = ZAINAB) < 7 U/mL ? Negative7 - 10 U/mL ?Equivocal> 10 U/mL ?Positive In case of equivocal results, we recommend to retest the patient after 8 -12 weeks. Lab Interpretation (test code = 87906-9) Normal [facility] ONLY CELIAC SCREEN [id number] 19:09:14 * Test Item Value Reference Range Interpretation Comme nts Tissue Transglutaminase (tTG) Ab, IgA Interpretation (test code = 04881-8) Negative Negative Deamidated Gliadin Peptide (DGP) Ab, IgA Interpretation (test code = 30509-6) Negative Negative Tissue Transglutaminase (tTG) Ab, IgA (test code = 5936359287) <=7.0 Deamidated Gliadin Peptide (DGP) Ab, IgA (test code = 0464739344) 0.4 U/mL <=7.0 ZAINAB (test code = ZAINAB) < 7 U/mL ? Negative7 - 10 U/mL ?Equivocal> 10 U/mL ?Positive In case of equivocal results, we recommend to retest the patient after 8 -12 weeks. Lab Interpretation (test code = 54648-8) Normal [facility] ONLY CELIAC SCREEN [id number] 19:09:14 * Test Item Value Reference Range Interpretation Comme nts Tissue Transglutaminase (tTG) Ab, IgA Interpretation (test code = 08762-6) Negative Negative Deamidated Gliadin Peptide (DGP) Ab, IgA Interpretation (test code = 34740-3) Negative Negative Tissue Transglutaminase (tTG) Ab, IgA (test code = 4929648069) <=7.0 Deamidated Gliadin Peptide (DGP) Ab, IgA (test code = 1412453518) 0.4 U/mL <=7.0 ZAINAB (test code = ZAINAB) < 7 U/mL ? Negative7 - 10 U/mL ?Equivocal> 10 U/mL ?Positive In case of equivocal results, we recommend to retest the patient after 8 -12 weeks. Lab Interpretation (test code = 34121-6) Normal [facility] ONLY CELIAC SCREEN [id number] 19:09:14 * Test Item Value Reference Range Interpretation Comme nts Tissue Transglutaminase (tTG) Ab, IgA Interpretation (test code = 23057-6) Negative Negative Deamidated Gliadin Peptide (DGP) Ab, IgA Interpretation (test code = 08027-0) Negative Negative Tissue Transglutaminase (tTG) Ab, IgA (test code = 7173373174) <=7.0 Deamidated Gliadin Peptide (DGP) Ab, IgA (test code = 3723452376) 0.4 U/mL <=7.0 ZAINAB (test code = ZAINAB) < 7 U/mL ? Negative7 - 10 U/mL ?Equivocal> 10 U/mL ?Positive In case of equivocal results, we recommend to retest the patient after 8 -12 weeks. Lab Interpretation (test code = 78206-5) Normal [facility] ONLY CELIAC SCREEN [id number] 19:09:14 * Test Item Value Reference Range Interpretation Comme nts Tissue Transglutaminase (tTG) Ab, IgA Interpretation (test code = 28601-7) Negative Negative Deamidated Gliadin Peptide (DGP) Ab, IgA Interpretation (test code = 67670-6) Negative Negative Tissue Transglutaminase (tTG) Ab, IgA (test code = 7359388154) <=7.0 Deamidated Gliadin Peptide (DGP) Ab, IgA (test code = 3538711144) 0.4 U/mL <=7.0 ZAINAB (test code = ZAINAB) < 7 U/mL ? Negative7 - 10 U/mL ?Equivocal> 10 U/mL ?Positive In case of equivocal results, we recommend to retest the patient after 8 -12 weeks. Lab Interpretation (test code = 90437-6) Normal [facility] ONLY CELIAC SCREEN [id number] 19:09:14 * Test Item Value Reference Range Interpretation Comme nts Tissue Transglutaminase (tTG) Ab, IgA Interpretation (test code = 18874-6) Negative Negative Deamidated Gliadin Peptide (DGP) Ab, IgA Interpretation (test code = 42412-7) Negative Negative Tissue Transglutaminase (tTG) Ab, IgA (test code = 8059859940) <=7.0 Deamidated Gliadin Peptide (DGP) Ab, IgA (test code = 9040274370) 0.4 U/mL <=7.0 ZAINAB (test code = ZAINAB) < 7 U/mL ? Negative7 - 10 U/mL ?Equivocal> 10 U/mL ?Positive In case of equivocal results, we recommend to retest the patient after 8 -12 weeks. Lab Interpretation (test code = 69060-4) Normal [facility] ONLY CELIAC SCREEN [id number] 19:09:14 * Test Item Value Reference Range Interpretation Comme nts Tissue Transglutaminase (tTG) Ab, IgA Interpretation (test code = 92232-0) Negative Negative Deamidated Gliadin Peptide (DGP) Ab, IgA Interpretation (test code = 46749-9) Negative Negative Tissue Transglutaminase (tTG) Ab, IgA (test code = 7534123588) <=7.0 Deamidated Gliadin Peptide (DGP) Ab, IgA (test code = 4709567035) 0.4 U/mL <=7.0 ZAINAB (test code = ZAINAB) < 7 U/mL ? Negative7 - 10 U/mL ?Equivocal> 10 U/mL ?Positive In case of equivocal results, we recommend to retest the patient after 8 -12 weeks. Lab Interpretation (test code = 14133-0) Normal [facility] ONLY CELIAC SCREEN [id number] 19:09:14 * Test Item Value Reference Range Interpretation Comme nts Tissue Transglutaminase (tTG) Ab, IgA Interpretation (test code = 50692-5) Negative Negative Deamidated Gliadin Peptide (DGP) Ab, IgA Interpretation (test code = 61368-3) Negative Negative Tissue Transglutaminase (tTG) Ab, IgA (test code = 9291026604) <=7.0 Deamidated Gliadin Peptide (DGP) Ab, IgA (test code = 0790787153) 0.4 U/mL <=7.0 ZAINAB (test code = ZAINAB) < 7 U/mL ? Negative7 - 10 U/mL ?Equivocal> 10 U/mL ?Positive In case of equivocal results, we recommend to retest the patient after 8 -12 weeks. Lab Interpretation (test code = 84301-8) Normal [facility] ONLY CELIAC SCREEN [id number] 19:09:14 * Test Item Value Reference Range Interpretation Comme nts Tissue Transglutaminase (tTG) Ab, IgA Interpretation (test code = 75367-6) Negative Negative Deamidated Gliadin Peptide (DGP) Ab, IgA Interpretation (test code = 10397-3) Negative Negative Tissue Transglutaminase (tTG) Ab, IgA (test code = 4927249983) <=7.0 Deamidated Gliadin Peptide (DGP) Ab, IgA (test code = 6738447342) 0.4 U/mL <=7.0 ZAINAB (test code = ZAINAB) < 7 U/mL ? Negative7 - 10 U/mL ?Equivocal> 10 U/mL ?Positive In case of equivocal results, we recommend to retest the patient after 8 -12 weeks. Lab Interpretation (test code = 17570-6) Normal [facility] ONLY CELIAC SCREEN [id number] 19:09:14 * Test Item Value Reference Range Interpretation Comme nts Tissue Transglutaminase (tTG) Ab, IgA Interpretation (test code = 85063-3) Negative Negative Deamidated Gliadin Peptide (DGP) Ab, IgA Interpretation (test code = 91339-1) Negative Negative Tissue Transglutaminase (tTG) Ab, IgA (test code = 5673384602) <=7.0 Deamidated Gliadin Peptide (DGP) Ab, IgA (test code = 3184866278) 0.4 U/mL <=7.0 ZAINAB (test code = ZAINAB) < 7 U/mL ? Negative7 - 10 U/mL ?Equivocal> 10 U/mL ?Positive In case of equivocal results, we recommend to retest the patient after 8 -12 weeks. Lab Interpretation (test code = 17302-6) Normal [facility] ONLY CELIAC SCREEN [id number] 19:09:14 * Test Item Value Reference Range Interpretation Comme nts Tissue Transglutaminase (tTG) Ab, IgA Interpretation (test code = 58142-5) Negative Negative Deamidated Gliadin Peptide (DGP) Ab, IgA Interpretation (test code = 50885-3) Negative Negative Tissue Transglutaminase (tTG) Ab, IgA (test code = 6979097500) <=7.0 Deamidated Gliadin Peptide (DGP) Ab, IgA (test code = 8149175933) 0.4 U/mL <=7.0 ZAINAB (test code = ZAINAB) < 7 U/mL ? Negative7 - 10 U/mL ?Equivocal> 10 U/mL ?Positive In case of equivocal results, we recommend to retest the patient after 8 -12 weeks. Lab Interpretation (test code = 64088-4) Normal [facility] [id number] 20:24:44* Test Item Value Reference Range Interpretation Comme nts Total IgA (test code = 0365529304) 78.3 U/mL 70-312 Lab Interpretation (test cod e = 78913-4) Normal [facility] [id number] 20:24:44* Test Item Value Reference Range Interpretation Comme nts Total IgA (test code = 6540539433) 78.3 U/mL 70-312 Lab Interpretation (test cod e = 48149-2) Normal [facility] [id number] 20:24:44* Test Item Value Reference Range Interpretation Comme nts Total IgA (test code = 9853225610) 78.3 U/mL 70-312 Lab Interpretation (test cod e = 13659-3) Normal [facility] [id number] 20:24:44* Test Item Value Reference Range Interpretation Comme nts Total IgA (test code = 4775157996) 78.3 U/mL 70-312 Lab Interpretation (test cod e = 69390-7) Normal [facility] [id number] 20:24:44* Test Item Value Reference Range Interpretation Comme nts Total IgA (test code = 8796674607) 78.3 U/mL 70-312 Lab Interpretation (test cod e = 70644-1) Normal [facility] [id number] 20:24:44* Test Item Value Reference Range Interpretation Comme nts Total IgA (test code = 1515000053) 78.3 U/mL 70-312 Lab Interpretation (test cod e = 18920-0) Normal [facility] [id number] 20:24:44* Test Item Value Reference Range Interpretation Comme nts Total IgA (test code = 9793514304) 78.3 U/mL 70-312 Lab Interpretation (test cod e = 17960-7) Normal [facility] [id number] 20:24:44* Test Item Value Reference Range Interpretation Comme nts Total IgA (test code = 6094568390) 78.3 U/mL 70-312 Lab Interpretation (test cod e = 17887-4) Normal [facility] [id number] 20:24:44* Test Item Value Reference Range Interpretation Comme nts Total IgA (test code = 9085107729) 78.3 U/mL 70-312 Lab Interpretation (test cod e = 99411-5) Normal [facility] [id number] 20:24:44* Test Item Value Reference Range Interpretation Comme nts Total IgA (test code = 4567994214) 78.3 U/mL 70-312 Lab Interpretation (test cod e = 39947-2) Normal [facility] [id number] 20:24:44* Test Item Value Reference Range Interpretation Comme nts Total IgA (test code = 1620655510) 78.3 U/mL 70-312 Lab Interpretation (test cod e = 97406-7) Normal [facility] [id number] 20:24:44* Test Item Value Reference Range Interpretation Comme nts Total IgA (test code = 0584474508) 78.3 U/mL 70-312 Lab Interpretation (test cod e = 80510-7) [facility] [id number] 17:30:19* Test Item Value Reference Range Interpretation Comme nts FERRITIN (test code = 6334219202) 4.8 ng/mL 6.0-137.0 L ZAINAB (test code = ZAINAB) Biotin has been reported to cause a negative bias, interpret results relative to patient's use of biotin. Lab Interpretation (test code = 65567-3) [facility] [id number] 17:30:19* Test Item Value Reference Range Interpretation Comme nts FERRITIN (test code = 4644097070) 4.8 ng/mL 6.0-137.0 L ZAINAB (test code = ZAINAB) Biotin has been reported to cause a negative bias, interpret results relative to patient's use of biotin. Lab Interpretation (test code = 08500-3) Abnormal [facility] [id number] 17:30:19* Test Item Value Reference Range Interpretation Comme nts FERRITIN (test code = 7329209690) 4.8 ng/mL 6.0-137.0 L ZAINAB (test code = ZAINAB) Biotin has been reported to cause a negative bias, interpret results relative to patient's use of biotin. Lab Interpretation (test code = 10923-8) Abnormal [facility] [id number] 17:30:19* Test Item Value Reference Range Interpretation Comme nts FERRITIN (test code = 0131579798) 4.8 ng/mL 6.0-137.0 L ZAINAB (test code = ZAINAB) Biotin has been reported to cause a negative bias, interpret results relative to patient's use of biotin. Lab Interpretation (test code = 41386-6) Abnormal [facility] [id number] 17:30:19* Test Item Value Reference Range Interpretation Comme nts FERRITIN (test code = 1146942266) 4.8 ng/mL 6.0-137.0 L ZAINAB (test code = ZAINAB) Biotin has been reported to cause a negative bias, interpret results relative to patient's use of biotin. Lab Interpretation (test code = 00671-9) Abnormal [facility] [id number] 17:30:19* Test Item Value Reference Range Interpretation Comme nts FERRITIN (test code = 5232153181) 4.8 ng/mL 6.0-137.0 L ZAINAB (test code = ZAINAB) Biotin has been reported to cause a negative bias, interpret results relative to patient's use of biotin. Lab Interpretation (test code = 67549-7) Abnormal [facility] [id number] 17:30:19* Test Item Value Reference Range Interpretation Comme nts FERRITIN (test code = 6246916002) 4.8 ng/mL 6.0-137.0 L ZAINAB (test code = ZAINAB) Biotin has been reported to cause a negative bias, interpret results relative to patient's use of biotin. Lab Interpretation (test code = 24593-8) Abnormal [facility] [id number] 17:30:19* Test Item Value Reference Range Interpretation Comme nts FERRITIN (test code = 3893517479) 4.8 ng/mL 6.0-137.0 L ZAINAB (test code = ZAINAB) Biotin has been reported to cause a negative bias, interpret results relative to patient's use of biotin. Lab Interpretation (test code = 51502-8) Abnormal [facility] [id number] 17:30:19* Test Item Value Reference Range Interpretation Comme nts FERRITIN (test code = 1807992174) 4.8 ng/mL 6.0-137.0 L ZAINAB (test code = ZAINAB) Biotin has been reported to cause a negative bias, interpret results relative to patient's use of biotin. Lab Interpretation (test code = 40409-2) Abnormal [facility] [id number] 17:30:19* Test Item Value Reference Range Interpretation Comme nts FERRITIN (test code = 3211793654) 4.8 ng/mL 6.0-137.0 L ZAINAB (test code = ZAINAB) Biotin has been reported to cause a negative bias, interpret results relative to patient's use of biotin. Lab Interpretation (test code = 81120-9) Abnormal [facility] [id number] 17:30:19* Test Item Value Reference Range Interpretation Comme nts FERRITIN (test code = 7308817505) 4.8 ng/mL 6.0-137.0 L ZAINAB (test code = ZAINAB) Biotin has been reported to cause a negative bias, interpret results relative to patient's use of biotin. Lab Interpretation (test code = 16948-3) Abnormal [facility] [id number] 17:30:19* Test Item Value Reference Range Interpretation Comme nts FERRITIN (test code = 7522179786) 4.8 ng/mL 6.0-137.0 L ZAINAB (test code = ZAINAB) Biotin has been reported to cause a negative bias, interpret results relative to patient's use of biotin. Lab Interpretation (test code = 37142-8) Abnormal [facility]2023-09-07 17:03:34* Test Item Value Reference Range Interpretation Comme nts IRON (test code = 4298624859) 34 ug/dL 50-160 L TIBC (test code = 3944042542) 515 ug/dL 250-410 H % FE SAT (test code = 9727057398) 7 % 20-50 L Lab Interpretation (test cod e = 49407-3) Abnormal [facility]2023-09-07 17:03:34* Test Item Value Reference Range Interpretation Comme nts IRON (test code = 6974681968) 34 ug/dL 50-160 L TIBC (test code = 2663948549) 515 ug/dL 250-410 H % FE SAT (test code = 1596836027) 7 % 20-50 L Lab Interpretation (test cod e = 72693-2) Abnormal [facility]2023-09-07 17:03:34* Test Item Value Reference Range Interpretation Comme nts IRON (test code = 3955412684) 34 ug/dL 50-160 L TIBC (test code = 3004074699) 515 ug/dL 250-410 H % FE SAT (test code = 3354278906) 7 % 20-50 L Lab Interpretation (test cod e = 26500-4) Abnormal [facility]2023-09-07 17:03:34* Test Item Value Reference Range Interpretation Comme nts IRON (test code = 1352760861) 34 ug/dL 50-160 L TIBC (test code = 5432616868) 515 ug/dL 250-410 H % FE SAT (test code = 4401109079) 7 % 20-50 L Lab Interpretation (test cod e = 66657-0) Abnormal [facility]2023-09-07 17:03:34* Test Item Value Reference Range Interpretation Comme nts IRON (test code = 6448914411) 34 ug/dL 50-160 L TIBC (test code = 5111110685) 515 ug/dL 250-410 H % FE SAT (test code = 6659493086) 7 % 20-50 L Lab Interpretation (test cod e = 46235-2) Abnormal [facility]2023-09-07 17:03:34* Test Item Value Reference Range Interpretation Comme nts IRON (test code = 8824895277) 34 ug/dL 50-160 L TIBC (test code = 1566178457) 515 ug/dL 250-410 H % FE SAT (test code = 3887971645) 7 % 20-50 L Lab Interpretation (test cod e = 72571-6) Abnormal [facility] [id number] 17:03:34* Test Item Value Reference Range Interpretation Comme nts IRON (test code = 3545408458) 34 ug/dL 50-160 L TIBC (test code = 3689321293) 515 ug/dL 250-410 H % FE SAT (test code = 5336489246) 7 % 20-50 L Lab Interpretation (test cod e = 71203-3) Abnormal [facility]2023-09-07 17:03:34* Test Item Value Reference Range Interpretation Comme nts IRON (test code = 1831377471) 34 ug/dL 50-160 L TIBC (test code = 8601345541) 515 ug/dL 250-410 H % FE SAT (test code = 7232464297) 7 % 20-50 L Lab Interpretation (test cod e = 70471-0) Abnormal [facility]2023-09-07 17:03:34* Test Item Value Reference Range Interpretation Comme nts IRON (test code = 0021313584) 34 ug/dL 50-160 L TIBC (test code = 2425891264) 515 ug/dL 250-410 H % FE SAT (test code = 8516719129) 7 % 20-50 L Lab Interpretation (test cod e = 01692-0) Abnormal [facility] [id number] 17:03:34* Test Item Value Reference Range Interpretation Comme nts IRON (test code = 0346648053) 34 ug/dL 50-160 L TIBC (test code = 2439035598) 515 ug/dL 250-410 H % FE SAT (test code = 0664818515) 7 % 20-50 L Lab Interpretation (test cod e = 54842-3) Abnormal [facility]2023-09-07 17:03:34* Test Item Value Reference Range Interpretation Comme nts IRON (test code = 5423018663) 34 ug/dL 50-160 L TIBC (test code = 8961147363) 515 ug/dL 250-410 H % FE SAT (test code = 1461384706) 7 % 20-50 L Lab Interpretation (test cod e = 50311-6) Abnormal [facility]2023-09-07 17:03:34* Test Item Value Reference Range Interpretation Comme nts IRON (test code = 2516814024) 34 ug/dL 50-160 L TIBC (test code = 5245642355) 515 ug/dL 250-410 H % FE SAT (test code = 5669727243) 7 % 20-50 L Lab Interpretation (test cod e = 03086-8) Abnormal [facility]2023-08-24 19:48:06* Test Item Value Reference Range Interpretation Comme nts [place] (test code = 3852923833) 0.5 mmol/L 0.6-1.2 L ZAINAB (test code = ZAINAB) Toxic Range: ? Greater than 1.2 mmol/L Lab Interpretation (test code = 14908-1) Abnormal [facility]2023-08-24 19:48:06* Test Item Value Reference Range Interpretation Comme nts [place] (test code = 3296970081) 0.5 mmol/L 0.6-1.2 L ZAINAB (test code = ZAINAB) Toxic Range: ? Greater than 1.2 mmol/L Lab Interpretation (test code = 85948-1) Abnormal [facility]2023-08-24 19:48:06* Test Item Value Reference Range Interpretation Comme nts [place] (test code = 6414271464) 0.5 mmol/L 0.6-1.2 L ZAINAB (test code = ZAINAB) Toxic Range: ? Greater than 1.2 mmol/L Lab Interpretation (test code = 04863-2) Abnormal [facility]2023-08-24 19:48:06* Test Item Value Reference Range Interpretation Comme nts [place] (test code = 6884392994) 0.5 mmol/L 0.6-1.2 L ZAINAB (test code = ZAINAB) Toxic Range: ? Greater than 1.2 mmol/L Lab Interpretation (test code = 64002-9) Abnormal [facility]2023-08-24 19:48:06* Test Item Value Reference Range Interpretation Comme nts [place] (test code = 6839525578) 0.5 mmol/L 0.6-1.2 L ZAINAB (test code = ZAINAB) Toxic Range: ? Greater than 1.2 mmol/L Lab Interpretation (test code = 67073-7) Abnormal [facility]2023-08-24 19:48:06* Test Item Value Reference Range Interpretation Comme nts [place] (test code = 6395863221) 0.5 mmol/L 0.6-1.2 L ZAINAB (test code = ZAINAB) Toxic Range: ? Greater than 1.2 mmol/L Lab Interpretation (test code = 17733-4) Abnormal [facility]2023-08-24 19:48:06* Test Item Value Reference Range Interpretation Comme nts [place] (test code = 8873690761) 0.5 mmol/L 0.6-1.2 L ZAINAB (test code = ZAINAB) Toxic Range: ? Greater than 1.2 mmol/L Lab Interpretation (test code = 80237-6) Abnormal [facility]2023-08-24 19:48:06* Test Item Value Reference Range Interpretation Comme nts [place] (test code = 1385911879) 0.5 mmol/L 0.6-1.2 L ZAINAB (test code = ZAINAB) Toxic Range: ? Greater than 1.2 mmol/L Lab Interpretation (test code = 75726-8) Abnormal [facility]2023-08-24 19:48:06* Test Item Value Reference Range Interpretation Comme nts [place] (test code = 0114415567) 0.5 mmol/L 0.6-1.2 L ZAINAB (test code = ZAINAB) Toxic Range: ? Greater than 1.2 mmol/L Lab Interpretation (test code = 10737-3) Abnormal [facility]2023-08-24 19:48:06* Test Item Value Reference Range Interpretation Comme nts [place] (test code = 1321651484) 0.5 mmol/L 0.6-1.2 L ZAINAB (test code = ZAINAB) Toxic Range: ? Greater than 1.2 mmol/L Lab Interpretation (test code = 33023-2) Abnormal [facility]2023-08-24 19:48:06* Test Item Value Reference Range Interpretation Comme nts [place] (test code = 5659591671) 0.5 mmol/L 0.6-1.2 L ZAINAB (test code = ZAINAB) Toxic Range: ? Greater than 1.2 mmol/L Lab Interpretation (test code = 80431-4) Abnormal [facility]2023-08-24 19:48:06* Test Item Value Reference Range Interpretation Comme nts [place] (test code = 8440391749) 0.5 mmol/L 0.6-1.2 L ZAINAB (test code = ZAINAB) Toxic Range: ? Greater than 1.2 mmol/L Lab Interpretation (test code = 15882-3) Abnormal [facility]2023-08-24 19:48:06* Test Item Value Reference Range Interpretation Comme nts [place] (test code = 5156401155) 0.5 mmol/L 0.6-1.2 L ZAINAB (test code = ZAINAB) Toxic Range: ? Greater than 1.2 mmol/L Lab Interpretation (test code = 49261-9) Abnormal [facility]2023-08-24 19:48:06* Test Item Value Reference Range Interpretation Comme nts [place] (test code = 1726200542) 0.5 mmol/L 0.6-1.2 L ZAINAB (test code = ZAINAB) Toxic Range: ? Greater than 1.2 mmol/L Lab Interpretation (test code = 11660-9) [facility] [id number] 17:24:34 * Test Item Value Reference Range Interpretation Comme nts TSH (test code = 0881597433) 1.07 See_Comment [Automated messa ge] The system which generated this result transmitted reference range: 0.45 - 4.70 mIU/L. The reference range was not used to interpret this result as normal/abnormal. Lab Interpretation (test code = 55656-2) [facility] [id number] 17:24:34 * Test Item Value Reference Range Interpretation Comme nts TSH (test code = 8731628195) 1.07 See_Comment [Automated messa ge] The system which generated this result transmitted reference range: 0.45 - 4.70 mIU/L. The reference range was not used to interpret this result as normal/abnormal. Lab Interpretation (test code = 92004-7) [facility] [id number] 17:24:34 * Test Item Value Reference Range Interpretation Comme nts TSH (test code = 9498226703) 1.07 See_Comment [Automated messa ge] The system which generated this result transmitted reference range: 0.45 - 4.70 mIU/L. The reference range was not used to interpret this result as normal/abnormal. Lab Interpretation (test code = 90357-9) [facility] [id number] 17:24:34 * Test Item Value Reference Range Interpretation Comme nts TSH (test code = 4705766278) 1.07 See_Comment [Automated messa ge] The system which generated this result transmitted reference range: 0.45 - 4.70 mIU/L. The reference range was not used to interpret this result as normal/abnormal. Lab Interpretation (test code = 48866-4) [facility] [id number] 17:24:34 * Test Item Value Reference Range Interpretation Comme nts TSH (test code = 9172579520) 1.07 See_Comment [Automated messa ge] The system which generated this result transmitted reference range: 0.45 - 4.70 mIU/L. The reference range was not used to interpret this result as normal/abnormal. Lab Interpretation (test code = 94255-6) [facility] [id number] 17:24:34 * Test Item Value Reference Range Interpretation Comme nts TSH (test code = 6997163985) 1.07 See_Comment [Automated messa ge] The system which generated this result transmitted reference range: 0.45 - 4.70 mIU/L. The reference range was not used to interpret this result as normal/abnormal. Lab Interpretation (test code = 49218-0) [facility] [id number] 17:24:34 * Test Item Value Reference Range Interpretation Comme nts TSH (test code = 1819951424) 1.07 See_Comment [Automated messa ge] The system which generated this result transmitted reference range: 0.45 - 4.70 mIU/L. The reference range was not used to interpret this result as normal/abnormal. Lab Interpretation (test code = 06132-8) [facility] [id number] 17:24:34 * Test Item Value Reference Range Interpretation Comme nts TSH (test code = 1204151316) 1.07 See_Comment [Automated messa ge] The system which generated this result transmitted reference range: 0.45 - 4.70 mIU/L. The reference range was not used to interpret this result as normal/abnormal. Lab Interpretation (test code = 98551-5) [facility] [id number] 17:24:34 * Test Item Value Reference Range Interpretation Comme nts TSH (test code = 9455033287) 1.07 See_Comment [Automated messa ge] The system which generated this result transmitted reference range: 0.45 - 4.70 mIU/L. The reference range was not used to interpret this result as normal/abnormal. Lab Interpretation (test code = 97510-6) [facility] [id number] 17:24:34 * Test Item Value Reference Range Interpretation Comme nts TSH (test code = 0544893393) 1.07 See_Comment [Automated messa ge] The system which generated this result transmitted reference range: 0.45 - 4.70 mIU/L. The reference range was not used to interpret this result as normal/abnormal. Lab Interpretation (test code = 41427-9) [facility] [id number] 17:24:34 * Test Item Value Reference Range Interpretation Comme nts TSH (test code = 6957953392) 1.07 See_Comment [Automated messa ge] The system which generated this result transmitted reference range: 0.45 - 4.70 mIU/L. The reference range was not used to interpret this result as normal/abnormal. Lab Interpretation (test code = 08444-3) [facility] [id number] 17:24:34 * Test Item Value Reference Range Interpretation Comme nts TSH (test code = 9477173259) 1.07 See_Comment [Automated messa ge] The system which generated this result transmitted reference range: 0.45 - 4.70 mIU/L. The reference range was not used to interpret this result as normal/abnormal. Lab Interpretation (test code = 99594-1) [facility] [id number] 17:24:34 * Test Item Value Reference Range Interpretation Comme nts TSH (test code = 5308021862) 1.07 See_Comment [Automated messa ge] The system which generated this result transmitted reference range: 0.45 - 4.70 mIU/L. The reference range was not used to interpret this result as normal/abnormal. Lab Interpretation (test code = 18049-5) [facility] [id number] 17:24:34 * Test Item Value Reference Range Interpretation Comme nts TSH (test code = 0815356039) 1.07 See_Comment [Automated messa ge] The system which generated this result transmitted reference range: 0.45 - 4.70 mIU/L. The reference range was not used to interpret this result as normal/abnormal. Lab Interpretation (test code = 88000-9) Normal [facility]. METABOLIC PANEL ([id number])2022-10-05 16:54:48* Test Item Value Reference Range Interpretation Comme nts NA (test code = 0113945619) 140 mmol/L 135-145 K (test code = 7051880596) 4.6 mmol/L 3.5-5.0 CL (test code = 9566762184) 106 mmol/L 98-108 CO2 TOTAL (test code = 2739778288) 28 mmol/L 23-31 AGAP (test code = 5409668512) 6 2-16 BUN (test code = 1530739066) 5 mg/dL 7-23 L GLUCOSE (test code = 6076784860) 90 mg/dL 70-110 CREATININE (test code = 4293327677) 0.54 mg/dL 0.50-1.04 TOTAL BILI (test code = 0444260904) 0.1 mg/dL 0.1-1.1 CALCIUM (test code = 3366269836) 9.6 mg/dL 8.6-10.6 T PROTEIN (test code = 0452230358) 6.2 g/dL 6.3-8.2 L ALBUMIN (test code = 8008268993) 4.0 g/dL 3.5-5.0 ALK PHOS (test code = 9857104398) 125 U/L 34-122 H ALTv (test code = 1742-6) 29 U/L 5-35 AST(SGOT) (test code = 5661455148) 24 U/L 13-40 eGFR (test code = 5678819810) 122.1 mL/min/1.73m2 ZAINAB (test code = ZAINAB) [...] imaging tests). Lab Interpretation (test code = 81583-7) [facility] (62130)(TOTAL CHOLESTEROL, TRIGLYCERIDES, HDL)2022-10-05 16:54:48* Test Item Value Reference Range Interpretation Comme nts CHOL (test code = 0527215233) 183 mg/dL 120-200 HDL (test code = 3798361179) 40 mg/dL >=50 L HDLC RATIO (test code = 5050131129) 4.6 <=4.5 H TRIG (test code = 5896032076) 128 mg/dL 30-170 LDL CHOL (test code = 20910-6) 117 mg/dL <=160 VLDL (test code = 5412806354) 26 mg/dL 5-60 Lab Interpretation (test cod e = 41226-7) Abnormal [facility]. METABOLIC PANEL (55300)2022-10-05 16:54:48* Test Item Value Reference Range Interpretation Comme nts NA (test code = 5326667118) 140 mmol/L 135-145 K (test code = 3142513449) 4.6 mmol/L 3.5-5.0 CL (test code = 4964614470) 106 mmol/L 98-108 CO2 TOTAL (test code = 6489341070) 28 mmol/L 23-31 AGAP (test code = 4697391532) 6 2-16 BUN (test code = 7091560589) 5 mg/dL 7-23 L GLUCOSE (test code = 9997594167) 90 mg/dL 70-110 CREATININE (test code = 3183939551) 0.54 mg/dL 0.50-1.04 TOTAL BILI (test code = 9538083091) 0.1 mg/dL 0.1-1.1 CALCIUM (test code = 4653500954) 9.6 mg/dL 8.6-10.6 T PROTEIN (test code = 0088900377) 6.2 g/dL 6.3-8.2 L ALBUMIN (test code = 8237958332) 4.0 g/dL 3.5-5.0 ALK PHOS (test code = 8593561575) 125 U/L 34-122 H ALTv (test code = 1742-6) 29 U/L 5-35 AST(SGOT) (test code = 2014568929) 24 U/L 13-40 eGFR (test code = 1284689816) 122.1 mL/min/1.73m2 ZAINAB (test code = ZAINAB) [...] imaging tests). Lab Interpretation (test code = 70608-3) [facility]805[facility]TOTAL CHOLESTEROL, TRIGLYCERIDES, HDL)2022-10-05 16:54:48* Test Item Value Reference Range Interpretation Comme nts CHOL (test code = 8900306524) 183 mg/dL 120-200 HDL (test code = 5084065405) 40 mg/dL >=50 L HDLC RATIO (test code = 9853028533) 4.6 <=4.5 H TRIG (test code = 1087061911) 128 mg/dL 30-170 LDL CHOL (test code = 38953-3) 117 mg/dL <=160 VLDL (test code = 2012838875) 26 mg/dL 5-60 Lab Interpretation (test cod e = 62072-9) [facility]OLIC [facility] (25916)2022-10-05 16:54:48* Test Item Value Reference Range Interpretation Comme nts NA (test code = 0681172401) 140 mmol/L 135-145 K (test code = 9141019966) 4.6 mmol/L 3.5-5.0 CL (test code = 0358076409) 106 mmol/L 98-108 CO2 TOTAL (test code = 8905852798) 28 mmol/L 23-31 AGAP (test code = 5671990041) 6 2-16 BUN (test code = 4877361278) 5 mg/dL 7-23 L GLUCOSE (test code = 1536579220) 90 mg/dL 70-110 CREATININE (test code = 0967830269) 0.54 mg/dL 0.50-1.04 TOTAL BILI (test code = 5885712594) 0.1 mg/dL 0.1-1.1 CALCIUM (test code = 2678295947) 9.6 mg/dL 8.6-10.6 T PROTEIN (test code = 7138906244) 6.2 g/dL 6.3-8.2 L ALBUMIN (test code = 2964082698) 4.0 g/dL 3.5-5.0 ALK PHOS (test code = 2850536266) 125 U/L 34-122 H ALTv (test code = 1742-6) 29 U/L 5-35 AST(SGOT) (test code = 3747406769) 24 U/L 13-40 eGFR (test code = 6391484121) 122.1 mL/min/1.73m2 ZAINAB (test code = ZAINAB) [...] imaging tests). Lab Interpretation (test code = 60459-0) [facility]30222)(TOTAL CHOLESTEROL, TRIGLYCERIDES, HDL)2022-10-05 16:54:48* Test Item Value Reference Range Interpretation Comme nts CHOL (test code = 4053477259) 183 mg/dL 120-200 HDL (test code = 9417047848) 40 mg/dL >=50 L HDLC RATIO (test code = 9443383471) 4.6 <=4.5 H TRIG (test code = 2610438081) 128 mg/dL 30-170 LDL CHOL (test code = 12223-4) 117 mg/dL <=160 VLDL (test code = 8711442214) 26 mg/dL 5-60 Lab Interpretation (test cod e = 63624-4) [facility] (19299)(TOTAL CHOLESTEROL, TRIGLYCERIDES, HDL)2022-10-05 16:54:48* Test Item Value Reference Range Interpretation Comme nts CHOL (test code = 6074820233) 183 mg/dL 120-200 HDL (test code = 4575363512) 40 mg/dL >=50 L HDLC RATIO (test code = 8783745840) 4.6 <=4.5 H TRIG (test code = 8797081408) 128 mg/dL 30-170 LDL CHOL (test code = 38423-7) 117 mg/dL <=160 VLDL (test code = 6129620443) 26 mg/dL 5-60 Lab Interpretation (test cod e = 72214-8) [facility] (67968)(TOTAL CHOLESTEROL, TRIGLYCERIDES, HDL)2022-10-05 16:54:48* Test Item Value Reference Range Interpretation Comme nts CHOL (test code = 6372681339) 183 mg/dL 120-200 HDL (test code = 3028600598) 40 mg/dL >=50 L HDLC RATIO (test code = 5532592112) 4.6 <=4.5 H TRIG (test code = 3172596499) 128 mg/dL 30-170 LDL CHOL (test code = 95571-1) 117 mg/dL <=160 VLDL (test code = 0758500960) 26 mg/dL 5-60 Lab Interpretation (test cod e = 77689-6) [facility] (63548)(TOTAL CHOLESTEROL, TRIGLYCERIDES, HDL)2022-10-05 16:54:48* Test Item Value Reference Range Interpretation Comme nts CHOL (test code = 0350054044) 183 mg/dL 120-200 HDL (test code = 8298752222) 40 mg/dL >=50 L HDLC RATIO (test code = 8635868303) 4.6 <=4.5 H TRIG (test code = 9508740647) 128 mg/dL 30-170 LDL CHOL (test code = 70063-8) 117 mg/dL <=160 VLDL (test code = 8251983408) 26 mg/dL 5-60 Lab Interpretation (test cod e = 43859-9) [facility] (66011)(TOTAL CHOLESTEROL, TRIGLYCERIDES, HDL)2022-10-05 16:54:48* Test Item Value Reference Range Interpretation Comme nts CHOL (test code = 3242207207) 183 mg/dL 120-200 HDL (test code = 9820805217) 40 mg/dL >=50 L HDLC RATIO (test code = 3508718863) 4.6 <=4.5 H TRIG (test code = 1906549126) 128 mg/dL 30-170 LDL CHOL (test code = 68287-9) 117 mg/dL <=160 VLDL (test code = 5528722370) 26 mg/dL 5-60 Lab Interpretation (test cod e = 55592-7) [facility] (96991)(TOTAL CHOLESTEROL, TRIGLYCERIDES, HDL)2022-10-05 16:54:48* Test Item Value Reference Range Interpretation Comme nts CHOL (test code = 3324135092) 183 mg/dL 120-200 HDL (test code = 1076899735) 40 mg/dL >=50 L HDLC RATIO (test code = 4241827286) 4.6 <=4.5 H TRIG (test code = 7617442525) 128 mg/dL 30-170 LDL CHOL (test code = 40563-0) 117 mg/dL <=160 VLDL (test code = 8540235076) 26 mg/dL 5-60 Lab Interpretation (test cod e = 47930-4) [facility] (16643)(TOTAL CHOLESTEROL, TRIGLYCERIDES, HDL)2022-10-05 16:54:48* Test Item Value Reference Range Interpretation Comme nts CHOL (test code = 7384089647) 183 mg/dL 120-200 HDL (test code = 4627198003) 40 mg/dL >=50 L HDLC RATIO (test code = 4675266174) 4.6 <=4.5 H TRIG (test code = 4778342258) 128 mg/dL 30-170 LDL CHOL (test code = 20053-3) 117 mg/dL <=160 VLDL (test code = 8234778149) 26 mg/dL 5-60 Lab Interpretation (test cod e = 58016-4) [facility] (88947)(TOTAL CHOLESTEROL, TRIGLYCERIDES, HDL)2022-10-05 16:54:48* Test Item Value Reference Range Interpretation Comme nts CHOL (test code = 7392422829) 183 mg/dL 120-200 HDL (test code = 7499723001) 40 mg/dL >=50 L HDLC RATIO (test code = 3249543391) 4.6 <=4.5 H TRIG (test code = 4670742737) 128 mg/dL 30-170 LDL CHOL (test code = 42973-7) 117 mg/dL <=160 VLDL (test code = 1190800522) 26 mg/dL 5-60 Lab Interpretation (test cod e = 32080-1) [facility] (35598)(TOTAL CHOLESTEROL, TRIGLYCERIDES, HDL)2022-10-05 16:54:48* Test Item Value Reference Range Interpretation Comme nts CHOL (test code = 8049438761) 183 mg/dL 120-200 HDL (test code = 4916674996) 40 mg/dL >=50 L HDLC RATIO (test code = 7011702955) 4.6 <=4.5 H TRIG (test code = 7889827166) 128 mg/dL 30-170 LDL CHOL (test code = 19021-8) 117 mg/dL <=160 VLDL (test code = 5268953341) 26 mg/dL 5-60 Lab Interpretation (test cod e = 97106-9) [facility] (66470)(TOTAL CHOLESTEROL, TRIGLYCERIDES, HDL)2022-10-05 16:54:48* Test Item Value Reference Range Interpretation Comme nts CHOL (test code = 2933012106) 183 mg/dL 120-200 HDL (test code = 9661990764) 40 mg/dL >=50 L HDLC RATIO (test code = 1358965855) 4.6 <=4.5 H TRIG (test code = 9114606907) 128 mg/dL 30-170 LDL CHOL (test code = 85310-2) 117 mg/dL <=160 VLDL (test code = 1128391783) 26 mg/dL 5-60 Lab Interpretation (test cod e = 81009-1) [facility] (12450)(TOTAL CHOLESTEROL, TRIGLYCERIDES, HDL)2022-10-05 16:54:48* Test Item Value Reference Range Interpretation Comme nts CHOL (test code = 9218629629) 183 mg/dL 120-200 HDL (test code = 4587812845) 40 mg/dL >=50 L HDLC RATIO (test code = 8589417580) 4.6 <=4.5 H TRIG (test code = 2934460365) 128 mg/dL 30-170 LDL CHOL (test code = 49446-3) 117 mg/dL <=160 VLDL (test code = 9324579627) 26 mg/dL 5-60 Lab Interpretation (test cod e = 81906-4) [facility] (65278)(TOTAL CHOLESTEROL, TRIGLYCERIDES, HDL)2022-10-05 16:54:48* Test Item Value Reference Range Interpretation Comme nts CHOL (test code = 6195404700) 183 mg/dL 120-200 HDL (test code = 6858842396) 40 mg/dL >=50 L HDLC RATIO (test code = 5676585705) 4.6 <=4.5 H TRIG (test code = 9563911694) 128 mg/dL 30-170 LDL CHOL (test code = 67301-3) 117 mg/dL <=160 VLDL (test code = 3604982674) 26 mg/dL 5-60 Lab Interpretation (test cod e = 82595-6) [facility]2022-10-05 15:51:11* Test Item Value Reference Range Interpretation Comme nts HGB A1C (test code = 4548-4) 5.1 % 4.0-5.7 ZAINAB (test code = ZAINAB) Reference RangesNormal: <5.7%Prediabetes: 5.7 - 6.4%Diabetes: > 6.5% Lab Interpretation (test code = 58580-2) [facility]2022-10-05 15:51:11* Test Item Value Reference Range Interpretation Comme nts HGB A1C (test code = 4548-4) 5.1 % 4.0-5.7 ZAINAB (test code = ZAINAB) Reference RangesNormal: <5.7%Prediabetes: 5.7 - 6.4%Diabetes: > 6.5% Lab Interpretation (test code = 06639-2) [facility]2022-10-05 15:51:11* Test Item Value Reference Range Interpretation Comme nts HGB A1C (test code = 4548-4) 5.1 % 4.0-5.7 ZAINAB (test code = ZAINAB) Reference RangesNormal: <5.7%Prediabetes: 5.7 - 6.4%Diabetes: > 6.5% Lab Interpretation (test code = 69592-4) [facility]2022-10-05 15:51:11* Test Item Value Reference Range Interpretation Comme nts HGB A1C (test code = 4548-4) 5.1 % 4.0-5.7 ZAINAB (test code = ZAINAB) Reference RangesNormal: <5.7%Prediabetes: 5.7 - 6.4%Diabetes: > 6.5% Lab Interpretation (test code = 89255-0) [facility]05 15:51:11* Test Item Value Reference Range Interpretation Comme nts HGB A1C (test code = 4548-4) 5.1 % 4.0-5.7 ZAINAB (test code = ZAINAB) Reference RangesNormal: <5.7%Prediabetes: 5.7 - 6.4%Diabetes: > 6.5% Lab Interpretation (test code = 91613-1) [facility]2022-10-05 15:51:11* Test Item Value Reference Range Interpretation Comme nts HGB A1C (test code = 4548-4) 5.1 % 4.0-5.7 ZAINAB (test code = ZAINAB) Reference RangesNormal: <5.7%Prediabetes: 5.7 - 6.4%Diabetes: > 6.5% Lab Interpretation (test code = 49173-0) [facility]2022-10-05 15:51:11* Test Item Value Reference Range Interpretation Comme nts HGB A1C (test code = 4548-4) 5.1 % 4.0-5.7 ZAINAB (test code = ZAINAB) Reference RangesNormal: <5.7%Prediabetes: 5.7 - 6.4%Diabetes: > 6.5% Lab Interpretation (test code = 85772-2) [facility]2022-10-05 15:51:11* Test Item Value Reference Range Interpretation Comme nts HGB A1C (test code = 4548-4) 5.1 % 4.0-5.7 ZAINAB (test code = ZAINAB) Reference RangesNormal: <5.7%Prediabetes: 5.7 - 6.4%Diabetes: > 6.5% Lab Interpretation (test code = 73090-7) [facility]2022-10-05 15:51:11* Test Item Value Reference Range Interpretation Comme nts HGB A1C (test code = 4548-4) 5.1 % 4.0-5.7 ZAINAB (test code = ZAINAB) Reference RangesNormal: <5.7%Prediabetes: 5.7 - 6.4%Diabetes: > 6.5% Lab Interpretation (test code = 91954-8) [facility]2022-10-05 15:51:11* Test Item Value Reference Range Interpretation Comme nts HGB A1C (test code = 4548-4) 5.1 % 4.0-5.7 ZAINAB (test code = ZAINAB) Reference RangesNormal: <5.7%Prediabetes: 5.7 - 6.4%Diabetes: > 6.5% Lab Interpretation (test code = 08155-8) [facility]2022-10-05 15:51:11* Test Item Value Reference Range Interpretation Comme nts HGB A1C (test code = 4548-4) 5.1 % 4.0-5.7 ZAINAB (test code = ZAINAB) Reference RangesNormal: <5.7%Prediabetes: 5.7 - 6.4%Diabetes: > 6.5% Lab Interpretation (test code = 48566-7) [facility]2022-10-05 15:51:11* Test Item Value Reference Range Interpretation Comme nts HGB A1C (test code = 4548-4) 5.1 % 4.0-5.7 ZAINAB (test code = ZAINAB) Reference RangesNormal: <5.7%Prediabetes: 5.7 - 6.4%Diabetes: > 6.5% Lab Interpretation (test code = 37362-7) [facility]2022-10-05 15:51:11* Test Item Value Reference Range Interpretation Comme nts HGB A1C (test code = 4548-4) 5.1 % 4.0-5.7 ZAINAB (test code = ZAINAB) Reference RangesNormal: <5.7%Prediabetes: 5.7 - 6.4%Diabetes: > 6.5% Lab Interpretation (test code = 01901-5) [facility]2022-10-05 15:51:11* Test Item Value Reference Range Interpretation Comme nts HGB A1C (test code = 4548-4) 5.1 % 4.0-5.7 ZAINAB (test code = ZAINAB) Reference RangesNormal: <5.7%Prediabetes: 5.7 - 6.4%Diabetes: > 6.5% Lab Interpretation (test code = 50721-5) Normal [facility] WITH [id number] 15:20:32* Test Item Value Reference Range Interpretation [...] g/dL 31.6-35.1 L RDW-SD (test code = 28753-5) 47.8 fL 39.0-49.9 RDW-CV (test code = 788-0) 18.0 % 12.0-15.5 H PLT (test code = 777-3) 296 See_Comment [Automated messa ge] The system which generated this result transmitted reference range: 166 - 358 10*3/?L. The reference range was not used to interpret this result as normal/abnormal. MPV (test code = 92114-3) 10.7 fL 9.5-12.9 NRBC/100 WBC (test code = 4614851286) 0.0 See_Comment [Automated me ssage] The system which generated this result transmitted reference range: 0.0 - 10.0 /100 WBCs. The reference range was not used to interpret this result as normal/abnormal. NRBC x10^3 (test code = 0694937680) See_Comment [Automated messa ge] The system which generated this result transmitted reference range: 10*3/?L. The reference range was not used to interpret this result as normal/abnormal. GRAN MAT (NEUT) % (test code = 770-8) 70.0 % IMM GRAN % (test code = 0936571385) 0.40 % LYMPH % (test code = 736-9) 18.7 % MONO % (test code = 5905-5) 5.7 % EOS % (test code = 713-8) 4.5 % BASO % (test code = 706-2) 0.7 % GRAN MAT x10^3(ANC) (test code = 5344891069) 4.66 10*3/uL 1.88-7.09 IMM GRAN x10^3 (test code = 3259840211) 0.03 10*3/uL 0.00-0.06 LYMPH x10^3 (test code = 731-0) 1.25 10*3/uL 1.32-3.29 L MONO x10^3 (test code = 742-7) 0.38 10*3/uL 0.33-0.92 EOS x10^3 (test code = 711-2) 0.30 10*3/uL 0.03-0.39 BASO x10^3 (test code = 704-7) 0.05 10*3/uL 0.01-0.07 Lab Interpretation (test code = 48237-6) Abnormal [facility] acute hospital WITH [id number] 15:20:32* Test Item Value Reference Range Interpretation [...] g/dL 31.6-35.1 L RDW-SD (test code = 84524-1) 47.8 fL 39.0-49.9 RDW-CV (test code = 788-0) 18.0 % 12.0-15.5 H PLT (test code = 777-3) 296 See_Comment [Automated messa ge] The system which generated this result transmitted reference range: 166 - 358 10*3/?L. The reference range was not used to interpret this result as normal/abnormal. MPV (test code = 04138-0) 10.7 fL 9.5-12.9 NRBC/100 WBC (test code = 4619331831) 0.0 See_Comment [Automated [employer] ssage] The system which generated this result transmitted reference range: 0.0 - 10.0 /100 WBCs. The reference range was not used to interpret this result as normal/abnormal. NRBC x10^3 (test code = 4488762355) See_Comment [Automated messa ge] The system which generated this result transmitted reference range: 10*3/?L. The reference range was not used to interpret this result as normal/abnormal. GRAN MAT (NEUT) % (test code = 770-8) 70.0 % IMM GRAN % (test code = 8268818366) 0.40 % LYMPH % (test code = 736-9) 18.7 % MONO % (test code = 5905-5) 5.7 % EOS % (test code = 713-8) 4.5 % BASO % (test code = 706-2) 0.7 % GRAN MAT x10^3(ANC) (test code = 3669997142) 4.66 10*3/uL 1.88-7.09 IMM GRAN x10^3 (test code = 0701869854) 0.03 10*3/uL 0.00-0.06 LYMPH x10^3 (test code = 731-0) 1.25 10*3/uL 1.32-3.29 L MONO x10^3 (test code = 742-7) 0.38 10*3/uL 0.33-0.92 EOS x10^3 (test code = 711-2) 0.30 10*3/uL 0.03-0.39 BASO x10^3 (test code = 704-7) 0.05 10*3/uL 0.01-0.07 Lab Interpretation (test code = 45668-3) Abnormal General acute hospital WITH [id number] 15:20:32* Test Item Value Reference Range Interpretation Comme nts WBC (test code = 6690-2) 6.67 See_Comment [Automated [employer]] The system which generated this result transmitted reference range: 4.30 - 11.10 10*3/?L. The reference range was not used to interpret this result as normal/abnormal. RBC (test code = 789-8) 4.04 See_Comment [Automated [employer]] The system which generated this result transmitted [...] g/dL 31.6-35.1 L RDW-SD (test code = 01112-6) 47.8 fL 39.0-49.9 RDW-CV (test code = 788-0) 18.0 % 12.0-15.5 H PLT (test code = 777-3) 296 See_Comment [Automated messa ge] The system which generated this result transmitted reference range: 166 - 358 10*3/?L. The reference range was not used to interpret this result as normal/abnormal. MPV (test code = 85797-3) 10.7 fL 9.5-12.9 NRBC/100 WBC (test code = 4922075969) 0.0 See_Comment [Automated me ssage] The system which generated this result transmitted reference range: 0.0 - 10.0 /100 WBCs. The reference range was not used to interpret this result as normal/abnormal. NRBC x10^3 (test code = [id number]) See_Comment [Automated messa ge] The system which generated this result transmitted reference range: 10*3/?L. The reference range was not used to interpret this result as normal/abnormal. GRAN MAT (NEUT) % (test code = 770-8) 70.0 % IMM GRAN % (test code = 4887382668) 0.40 % LYMPH % (test code = 736-9) 18.7 % MONO % (test code = 5905-5) 5.7 % EOS % (test code = 713-8) 4.5 % BASO % (test code = 706-2) 0.7 % GRAN MAT x10^3(ANC) (test code = 7362892240) 4.66 10*3/uL 1.88-7.09 IMM GRAN x10^3 (test code = 8575188677) 0.03 10*3/uL 0.00-0.06 LYMPH x10^3 (test code = 731-0) 1.25 10*3/uL 1.32-3.29 L MONO x10^3 (test code = 742-7) 0.38 10*3/uL 0.33-0.92 EOS x10^3 (test code = 711-2) 0.30 10*3/uL 0.03-0.39 BASO x10^3 (test code = 704-7) 0.05 10*3/uL 0.01-0.07 Lab Interpretation (test code = 08816-2) Abnormal [facility]2023-06-14 17:27:33* Test Item Value Reference Range Interpretation Comme nts [place] (test code = 6276241908) 0.3 mmol/L 0.6-1.2 L ZAINAB (test code = ZAINAB) Toxic Range: ? Greater than 1.2 mmol/L Lab Interpretation (test code = 94696-5) Abnormal [facility]2023-06-14 17:27:33* Test Item Value Reference Range Interpretation Comme nts [place] (test code = 6861240285) 0.3 mmol/L 0.6-1.2 L ZAINAB (test code = ZAINAB) Toxic Range: ? Greater than 1.2 mmol/L Lab Interpretation (test code = 13356-9) Abnormal [facility]2023-06-14 17:27:33* Test Item Value Reference Range Interpretation Comme nts [place] (test code = 2389562027) 0.3 mmol/L 0.6-1.2 L ZAINAB (test code = ZAINAB) Toxic Range: ? Greater than 1.2 mmol/L Lab Interpretation (test code = 30711-3) Abnormal [facility]2023-06-14 17:27:33* Test Item Value Reference Range Interpretation Comme nts [place] (test code = 7697171123) 0.3 mmol/L 0.6-1.2 L ZAINAB (test code = ZAINAB) Toxic Range: ? Greater than 1.2 mmol/L Lab Interpretation (test code = 53137-4) Abnormal [facility]2023-06-14 17:27:33* Test Item Value Reference Range Interpretation Comme nts [place] (test code = 5366205805) 0.3 mmol/L 0.6-1.2 L ZAINAB (test code = ZAINAB) Toxic Range: ? Greater than 1.2 mmol/L Lab Interpretation (test code = 50913-6) Abnormal [facility]2023-06-14 17:27:33* Test Item Value Reference Range Interpretation Comme nts [place] (test code = 9146232521) 0.3 mmol/L 0.6-1.2 L ZAINAB (test code = ZAINAB) Toxic Range: ? Greater than 1.2 mmol/L Lab Interpretation (test code = 27125-0) Abnormal [address]06-14 17:27:33* Test Item Value Reference Range Interpretation Comme nts [place] (test code = 3270882026) 0.3 mmol/L 0.6-1.2 L ZAINAB (test code = ZAINAB) Toxic Range: ? Greater than 1.2 mmol/L Lab Interpretation (test code = 03702-9) Abnormal [address]06-14 17:27:33* Test Item Value Reference Range Interpretation Comme nts [place] (test code = 9253242313) 0.3 mmol/L 0.6-1.2 L ZAINAB (test code = ZAINAB) Toxic Range: ? Greater than 1.2 mmol/L Lab Interpretation (test code = 36307-1) Abnormal [address]06-14 17:27:33* Test Item Value Reference Range Interpretation Comme nts [place] (test code = 1589402397) 0.3 mmol/L 0.6-1.2 L ZAINAB (test code = ZAINAB) Toxic Range: ? Greater than 1.2 mmol/L Lab Interpretation (test code = 20562-8) Abnormal [facility]2023-06-14 17:27:33* Test Item Value Reference Range Interpretation Comme nts [place] (test code = 7091393356) 0.3 mmol/L 0.6-1.2 L ZAINAB (test code = ZAINAB) Toxic Range: ? Greater than 1.2 mmol/L Lab Interpretation (test code = 60131-9) Abnormal [facility]2023-06-14 17:27:33* Test Item Value Reference Range Interpretation Comme nts [place] (test code = 4329872566) 0.3 mmol/L 0.6-1.2 L ZAINAB (test code = ZAINAB) Toxic Range: ? Greater than 1.2 mmol/L Lab Interpretation (test code = 40086-8) Abnormal [facility]2023-06-14 17:27:33* Test Item Value Reference Range Interpretation Comme nts [place] (test code = 8208648717) 0.3 mmol/L 0.6-1.2 L ZAINAB (test code = ZAINAB) Toxic Range: ? Greater than 1.2 mmol/L Lab Interpretation (test code = 19127-2) Abnormal [facility] W/AUTO DIFF WITH [id number] 06:12:05* Test Item Value Reference Range Interpretation [...] 0.00-0.10 ABS NUCLEATED RBCS (test code = 81135) 0.00 K/UL 0.00-0.11 RETICULOCYTE WITH [id number] 06:12:05* Test Item Value Reference Range Interpretation Comme nts RETICULOCYTE COUNT (test code = 1018) 2.50 % 0.80-2.40 H ABSOLUTE RETICULOCYTE (test code = 37269) 103.3 K/UL 32.0-105.0 [facility] has important pathology staff changes effective 04/12/2022. New pathology staff will provide uninterrupted, excellent patient care and clinical consultation. See URL: [email or web address]. UNLESS OTHERWISE INDICATED, ALL TESTING PERFORMED AT [facility] [address] [place] [address] STAFF PHARMACIST HOSPITAL: CHARLA HERNANDEZ M.D. [place] NUMBER [id number] [facility] [place]. [id number] CBC W/AUTO [id number] 00:00:00* Test Item Value Reference Range Interpretation [...] ABS NUCLEATED RBCS (test cod e = 68525) 0.00 K/UL Robert Ambrose AustinRETICULOCYTE WITH [id number] 00:00:00* Test Item Value Reference Range Interpretation Comme nts RETICULOCYTE COUNT (test cod e = 1018) 2.50 % ABSOLUTE RETICULOCYTE (test code = 74048) 103.3 K/UL Robert Ambrose AustinCBC W/AUTO [id number] 00:00:00* Test Item Value Reference Range Interpretation [...] ABS NUCLEATED RBCS (test cod e = 26360) 0.00 K/UL Robert Ambrose AustinRETICULOCYTE WITH [id number] 00:00:00* Test Item Value Reference Range Interpretation Comme nts RETICULOCYTE COUNT (test cod e = 1018) 2.50 % ABSOLUTE RETICULOCYTE (test code = 66532) 103.3 K/UL Robert Ambrose AustinCBC W/AUTO [id number] 00:00:00* Test Item Value Reference Range Interpretation [...] ABS NUCLEATED RBCS (test cod e = 39327) 0.00 K/UL Robert CaliRETICULOCYTE WITH [id number] 00:00:00* Test Item Value Reference Range Interpretation Comme nts RETICULOCYTE COUNT (test cod e = 1018) 2.50 % ABSOLUTE RETICULOCYTE (test code = 36731) 103.3 K/UL Robert CaliCBC W/AUTO [id number] 00:00:00* Test Item Value Reference Range Interpretation [...] ABS NUCLEATED RBCS (test cod e = 68518) 0.00 K/UL Robert CaliRETICULOCYTE WITH [id number] 00:00:00* Test Item Value Reference Range Interpretation Comme nts RETICULOCYTE COUNT (test cod e = 1018) 2.50 % ABSOLUTE RETICULOCYTE (test code = 14453) 103.3 K/UL Robert CaliCBC W/AUTO [id number] 00:00:00* Test Item Value Reference Range Interpretation [...] ABS NUCLEATED RBCS (test cod e = 95901) 0.00 K/UL Robert CaliRETICULOCYTE WITH [id number] 00:00:00* Test Item Value Reference Range Interpretation Comme nts RETICULOCYTE COUNT (test cod e = 1018) 2.50 % ABSOLUTE RETICULOCYTE (test code = 52321) 103.3 K/UL Robert CaliANA NON-REFLEX TO [id number] 05:55:49* Test Item Value Reference Range Interpretation Comme nts ANTI-NUCLEAR ANTIBODIES (test code = 3506) NEGATIVE NEGATIVE METHODOLOGY IS I NDIRECT IMMUNOFLUORESCENT ASSAY (IFA) WITH HUMAN EPITHELIAL (HEP-2) CELL LINE SUBSTRATE. YAZMIN NON-REFLEX TO [id number] 00:00:00* Test Item Value Reference Range Interpretation Comme nts ANTI-NUCLEAR ANTIBODIES (aram t code = 3506) NEGATIVE Robert Ambrose AustinANA NON-REFLEX TO [id number] 00:00:00* Test Item Value Reference Range Interpretation Comme nts ANTI-NUCLEAR ANTIBODIES (aram t code = 3506) NEGATIVE Robert F AustinANA NON-REFLEX TO [id number] 00:00:00* Test Item Value Reference Range Interpretation Comme nts ANTI-NUCLEAR ANTIBODIES (aram t code = 3506) NEGATIVE Robert F AustinANA NON-REFLEX TO [id number] 00:00:00* Test Item Value Reference Range Interpretation Comme nts ANTI-NUCLEAR ANTIBODIES (aram t code = 3506) NEGATIVE Robert Bailon NON-REFLEX TO [id number] 00:00:00* Test Item Value Reference Range Interpretation Comme nts ANTI-NUCLEAR ANTIBODIES (aram t code = 3506) NEGATIVE Robert CaliFOLATE, [id number] 12:42:51* Test Item Value Reference Range Interpretation [...] . . . NG/ML >1504 TSH, THIRD [id number] 11:05:54* Test Item Value Reference Range Interpretation Comme nts TSH, THIRD GENERATION (test code = 2821) 1.310 UIU/ML 0.400-4.100 VITAMIN [id number] 11:05:54* Test Item Value Reference Range Interpretation Comme nts VITAMIN B-12 (test code = 2840) 436 PG/ML 200-950 VITAMIN D, 25 [id number] 11:03:45* Test Item Value Reference Range Interpretation [...] . . . . . NG/ML 30-100 [facility] has important pathology staff changes effective 04/12/2022. New pathology staff will provide uninterrupted, excellent patient care and clinical consultation. See URL: [email or web address]. UNLESS OTHERWISE INDICATED, ALL TESTING PERFORMED AT [facility] [address] [place] [address] STAFF PHARMACIST HOSPITAL: CHARLA HERNANDEZ M.D. [place] NUMBER [id number] [place] [id number] URIC [id number] 05:28:57* Test Item Value Reference Range Interpretation Comme nts URIC ACID (test code = 2233) 6.7 MG/DL 2.7-6.1 H COMPREHENSIVE METABOLIC [id number] 05:28:57* Test Item Value Reference Range Interpretation Comme nts GLUCOSE (test code = 2217) 103 MG/DL 70-99 H BUN (test code = 2208) 9 MG/DL 6-20 CREATININE (test code = 2214) 0.72 MG/DL 0.60-1.30 eGFR (2020 CKD-EPI) (test code = 76927) 106 ML/MIN/1.73 >60 CALC BUN/CREAT (test code [...] code = 2219) 26 U/L 5-40 LIPID [id number] 05:28:57* Test Item Value Reference Range Interpretation [...] SPECIMENS. FOR MOREINFORMATION, SEE CLIENT ANNOUNCEMENT AT [email or web address] RISK RATIO LDL/HDL (test code = 223) 3.04 RATIO <3.22 HEMOGLOBIN [id number] 02:54:46* Test Item Value Reference Range Interpretation Comme nts HEMOGLOBIN A1c (test code = 53039) 5.6 % 4.2-5.6 CBC W/AUTO DIFF WITH [id number] 01:58:18* Test Item Value Reference Range Interpretation [...] = 1065) 0.0 /100 WBC'S See_Comment [Automated [employer] ge] The system which generated this result [...] 0.00-0.10 ABS NUCLEATED RBCS (test code = 49827) 0.00 K/UL 0.00-0.11 VITAMIN [id number] 00:00:00* Test Item Value Reference Range Interpretation Comme [facility] VITAMIN B-12 (test code = 2840) 436 PG/ML Robert CaliFOLATE, [id number] 00:00:00* Test Item Value Reference Range Interpretation Comme [facility] HEMATOCRIT (test code = 1004) 28.7 % FOLATE, RBC (test code = 2690) 1185 NG/ML Robert CaliURIC [id number] 00:00:00* Test Item Value Reference Range Interpretation Comme [facility] URIC ACID (test code = 2233) 6.7 MG/DL Robert CaliVITAMIN D, 25 [id number] 00:00:00* Test Item Value Reference Range Interpretation Comme [facility] VITAMIN D, 25 OH (test code = 4958) 13 NG/ML Robert CaliCOMPREHENSIVE METABOLIC [id number] 00:00:00* Test Item Value Reference Range Interpretation Comme [facility] GLUCOSE (test code = 2217) 103 MG/DL BUN (test code = 2208) 9 MG/DL CREATININE (test code = 2214) 0.72 MG/DL eGFR (2020 CKD-EPI) (test code = 88658) 106 ML/MIN/1.73 CALC BUN/CREAT (test code = [...] ALT (test code = 2219) 26 U/L Rboert CaliLIPID [id number] 00:00:00* Test Item Value Reference Range Interpretation Comme nts CHOLESTEROL (test code = 2210) 207 MG/DL TRIGLYCERIDES (test code = 2232) 130 MG/DL HDL CHOLESTEROL (test code = 2220) 45 MG/DL CALC LDL CHOL (test code = 2237) 137 MG/DL RISK RATIO LDL/HDL (test cod e = 2238) 3.04 RATIO Robert CaliHEMOGLOBIN [id number] 00:00:00* Test Item Value Reference Range Interpretation Comme nts HEMOGLOBIN A1c (test code = 90680) 5.6 % Robert CaliCBC W/AUTO [id number] 00:00:00* Test Item Value Reference Range Interpretation [...] ABS NUCLEATED RBCS (test cod e = 47385) 0.00 K/UL Robert FullerH, THIRD [id number] 00:00:00* Test Item Value Reference Range Interpretation Comme nts TSH, THIRD GENERATION (test code = 2821) 1.310 UIU/ML Robert CaliVITAMIN [id number] 00:00:00* Test Item Value Reference Range Interpretation Comme [facility] VITAMIN B-12 (test code = 2840) 436 PG/ML Robert CaliFOLATE, [id number] 00:00:00* Test Item Value Reference Range Interpretation Comme nts HEMATOCRIT (test code = 1004) 28.7 % FOLATE, RBC (test code = 2690) 1185 NG/ML Robert CaliURIC [id number] 00:00:00* Test Item Value Reference Range Interpretation Comme nts URIC ACID (test code = 2233) 6.7 MG/DL Robert CaliVITAMIN D, 25 [id number] 00:00:00* Test Item Value Reference Range Interpretation Comme nts VITAMIN D, 25 [place] (test code = 4958) 13 NG/ML Robert CaliCOMPREHENSIVE METABOLIC [id number] 00:00:00* Test Item Value Reference Range Interpretation Comme nts GLUCOSE (test code = 2217) 103 MG/DL BUN (test code = 2208) 9 MG/DL CREATININE (test code = 2214) 0.72 MG/DL eGFR (2020 CKD-EPI) (test code = 20912) 106 ML/MIN/1.73 CALC BUN/CREAT (test code = [...] code = 2219) 26 U/L Robert CaliLIPID [id number] 00:00:00* Test Item Value Reference Range Interpretation Comme nts CHOLESTEROL (test code = 2210) 207 MG/DL TRIGLYCERIDES (test code = 2232) 130 MG/DL HDL CHOLESTEROL (test code = 2220) 45 MG/DL CALC LDL CHOL (test code = 2237) 137 MG/DL RISK RATIO LDL/HDL (test cod e = 2238) 3.04 RATIO Robert CaliHEMOGLOBIN [id number] 00:00:00* Test Item Value Reference Range Interpretation Comme nts HEMOGLOBIN A1c (test code = 10588) 5.6 % Robert Ambrose VirajCBC W/AUTO [id number] 00:00:00* Test Item Value Reference Range Interpretation [...] ABS NUCLEATED RBCS (test cod e = 96741) 0.00 K/UL Robert FullerH, THIRD [id number] 00:00:00* Test Item Value Reference Range Interpretation Comme nts TSH, THIRD GENERATION (test code = 2821) 1.310 UIU/ML Robert CaliVITAMIN [id number] 00:00:00* Test Item Value Reference Range Interpretation Comme nts VITAMIN B-12 (test code = 2840) 436 PG/ML Robert CaliFOLATE, [id number] 00:00:00* Test Item Value Reference Range Interpretation Comme nts HEMATOCRIT (test code = 1004) 28.7 % FOLATE, RBC (test code = 2690) 1185 NG/ML Robert CaliURIC [id number] 00:00:00* Test Item Value Reference Range Interpretation Comme nts URIC ACID (test code = 2233) 6.7 MG/DL Robert CaliVITAMIN D, 25 [id number] 00:00:00* Test Item Value Reference Range Interpretation Comme nts VITAMIN D, 25 [place] (test code = 4958) 13 NG/ML Robert CaliCOMPREHENSIVE METABOLIC [id number] 00:00:00* Test Item Value Reference Range Interpretation Comme nts GLUCOSE (test code = 2217) 103 MG/DL BUN (test code = 2208) 9 MG/DL CREATININE (test code = 2214) 0.72 MG/DL eGFR (2020 CKD-EPI) (test code = 04888) 106 ML/MIN/1.73 CALC BUN/CREAT (test code = [...] (test code = 2219) 26 U/L Robert Ambrose VirajLIPID [id number] 00:00:00* Test Item Value Reference Range Interpretation Comme nts CHOLESTEROL (test code = 2210) 207 MG/DL TRIGLYCERIDES (test code = 2232) 130 MG/DL HDL CHOLESTEROL (test code = 2220) 45 MG/DL CALC LDL CHOL (test code = 2237) 137 MG/DL RISK RATIO LDL/HDL (test cod e = 2238) 3.04 RATIO Robert CaliHEMOGLOBIN [id number] 00:00:00* Test Item Value Reference Range Interpretation Comme nts HEMOGLOBIN A1c (test code = 02474) 5.6 % Robert Ambrose VirajCBC W/AUTO [id number] 00:00:00* Test Item Value Reference Range Interpretation [...] ABS NUCLEATED RBCS (test cod e = 30474) 0.00 K/UL Robert CaliTSH, THIRD [id number] 00:00:00* Test Item Value Reference Range Interpretation Comme nts TSH, THIRD GENERATION (test code = 2821) 1.310 UIU/ML Robert CaliVITAMIN [id number] 00:00:00* Test Item Value Reference Range Interpretation Comme nts VITAMIN B-12 (test code = 2840) 436 PG/ML Robert CaliFOLATE, [id number] 00:00:00* Test Item Value Reference Range Interpretation Comme nts HEMATOCRIT (test code = 1004) 28.7 % FOLATE, RBC (test code = 2690) 1185 NG/ML Robert CaliURIC [id number] 00:00:00* Test Item Value Reference Range Interpretation Comme nts URIC ACID (test code = 2233) 6.7 MG/DL Robert Ambrose VirajVITAMIN D, 25 [id number] 00:00:00* Test Item Value Reference Range Interpretation Comme [facility] VITAMIN D, 25 OH (test code = 4958) 13 NG/ML Robert CaliCOMPREHENSIVE METABOLIC [id number] 00:00:00* Test Item Value Reference Range Interpretation Comme nts GLUCOSE (test code = 2217) 103 MG/DL BUN (test code = 2208) 9 MG/DL CREATININE (test code = 2214) 0.72 MG/DL eGFR (2020 CKD-EPI) (test code = 37980) 106 ML/MIN/1.73 CALC BUN/CREAT (test code = [...] code = 2219) 26 U/L Robert CaliLIPID [id number] 00:00:00* Test Item Value Reference Range Interpretation Comme nts CHOLESTEROL (test code = 2210) 207 MG/DL TRIGLYCERIDES (test code = 2232) 130 MG/DL HDL CHOLESTEROL (test code = 2220) 45 MG/DL CALC LDL CHOL (test code = 2237) 137 MG/DL RISK RATIO LDL/HDL (test cod e = 2238) 3.04 RATIO Robert CaliHEMOGLOBIN [id number] 00:00:00* Test Item Value Reference Range Interpretation Comme nts HEMOGLOBIN A1c (test code = 16417) 5.6 % Robert CaliCBC W/AUTO [id number] 00:00:00* Test Item Value Reference Range Interpretation [...] ABS NUCLEATED RBCS (test cod e = 79254) 0.00 K/UL Robert Fuller, THIRD [id number] 00:00:00* Test Item Value Reference Range Interpretation Comme [facility] TSH, THIRD GENERATION (test code = 2821) 1.310 UIU/ML Robert CaliVITAMIN [id number] 00:00:00* Test Item Value Reference Range Interpretation Comme [facility] VITAMIN B-12 (test code = 2840) 436 PG/ML Robert CaliFOLATE, [id number] 00:00:00* Test Item Value Reference Range Interpretation Comme nts HEMATOCRIT (test code = 1004) 28.7 % FOLATE, RBC (test code = 2690) 1185 NG/ML Robert CaliURIC [id number] 00:00:00* Test Item Value Reference Range Interpretation Comme [facility] URIC ACID (test code = 2233) 6.7 MG/DL Robert CaliVITAMIN D, 25 [id number] 00:00:00* Test Item Value Reference Range Interpretation Comme nts VITAMIN D, 25 [place] (test code = 4958) 13 NG/ML Robert CaliCOMPREHENSIVE METABOLIC [id number] 00:00:00* Test Item Value Reference Range Interpretation Comme nts GLUCOSE (test code = 2217) 103 MG/DL BUN (test code = 2208) 9 MG/DL CREATININE (test code = 2214) 0.72 MG/DL eGFR (2020 CKD-EPI) (test code = 12151) 106 ML/MIN/1.73 CALC BUN/CREAT (test code = [...] code = 2219) 26 U/L Robert CaliLIPID [id number] 00:00:00* Test Item Value Reference Range Interpretation Comme nts CHOLESTEROL (test code = 2210) 207 MG/DL TRIGLYCERIDES (test code = 2232) 130 MG/DL HDL CHOLESTEROL (test code = 2220) 45 MG/DL CALC LDL CHOL (test code = 2237) 137 MG/DL RISK RATIO LDL/HDL (test cod e = 2238) 3.04 RATIO Robert CaliHEMOGLOBIN [id number] 00:00:00* Test Item Value Reference Range Interpretation Comme nts HEMOGLOBIN A1c (test code = 63350) 5.6 % Robert CaliCBC W/AUTO [id number] 00:00:00* Test Item Value Reference Range Interpretation [...] ABS NUCLEATED RBCS (test cod e = 96923) 0.00 K/UL Robert CaliMARK, THIRD [id number] 00:00:00* Test Item Value Reference Range Interpretation Comme nts TSH, THIRD GENERATION (test code = 2821) 1.310 UIU/ML Robert Ambrose [id number] 20:05:22* Test Item Value Reference Range Interpretation Comme nts [place] (test code = 2255337132) 1.1 mmol/L 0.6-1.2 ZAINAB (test code = ZAINAB) Toxic Range: ? Greater than 1.2 mmol/L Lab Interpretation (test code = 96788-5) [facility]2023-01-04 20:05:22* Test Item Value Reference Range Interpretation Comme nts [place] (test code = 7406247202) 1.1 mmol/L 0.6-1.2 ZAINAB (test code = ZAINAB) Toxic Range: ? Greater than 1.2 mmol/L Lab Interpretation (test code = 83896-2) [facility]2023-01-04 20:05:22* Test Item Value Reference Range Interpretation Comme nts [place] (test code = 0516305796) 1.1 mmol/L 0.6-1.2 ZAINAB (test code = ZAINAB) Toxic Range: ? Greater than 1.2 mmol/L Lab Interpretation (test code = 25687-4) [place] [address]-01-04 20:05:22* Test Item Value Reference Range Interpretation Comme nts [place] (test code = 2862361991) 1.1 mmol/L 0.6-1.2 ZAINAB (test code = ZAINAB) Toxic Range: ? Greater than 1.2 mmol/L Lab Interpretation (test code = 94012-7) [address]01-04 20:05:22* Test Item Value Reference Range Interpretation Comme nts [place] (test code = 5669724764) 1.1 mmol/L 0.6-1.2 ZAINAB (test code = ZAINAB) Toxic Range: ? Greater than 1.2 mmol/L Lab Interpretation (test code = 66474-7) [facility]2023-01-04 20:05:22* Test Item Value Reference Range Interpretation Comme nts [place] (test code = 2123582074) 1.1 mmol/L 0.6-1.2 ZAINAB (test code = ZAINAB) Toxic Range: ? Greater than 1.2 mmol/L Lab Interpretation (test code = 50610-9) [place] [address]-01-04 20:05:22* Test Item Value Reference Range Interpretation Comme nts [place] (test code = 7288000404) 1.1 mmol/L 0.6-1.2 ZAINAB (test code = ZAINAB) Toxic Range: ? Greater than 1.2 mmol/L Lab Interpretation (test code = 65601-5) [place] [address]-01-04 20:05:22* Test Item Value Reference Range Interpretation Comme nts [place] (test code = 5897891312) 1.1 mmol/L 0.6-1.2 ZAINAB (test code = ZAINAB) Toxic Range: ? Greater than 1.2 mmol/L Lab Interpretation (test code = 20019-9) [facility]* Test Item Value Reference Range Interpretation Comme nts [place] (test code = 1330283616) 1.1 mmol/L 0.6-1.2 ZAINAB (test code = ZAINAB) Toxic Range: ? Greater than 1.2 mmol/L Lab Interpretation (test code = 77738-5) [facility] 20:05:22* Test Item Value Reference Range Interpretation Comme nts [place] (test code = 1641797037) 1.1 mmol/L 0.6-1.2 ZAINAB (test code = ZAINAB) Toxic Range: ? Greater than 1.2 mmol/L Lab Interpretation (test code = 49304-6) [facility] [id number] 00:00:00* Test Item Value Reference Range Interpretation Comme nts VITAMIN D, 25 OH (test code = 4958) 17 NG/ML Robert Ambrose [facility] W/AUTO [id number] 00:00:00* Test Item Value Reference Range Interpretation [...] ABS NUCLEATED RBCS (test cod e = 24983) 0.00 K/UL Robert CaliHEMOGLOBIN [id number] 00:00:00* Test Item Value Reference Range Interpretation Comme nts HEMOGLOBIN A1c (test code = 93604) 5.5 % Robert CaliLIPID [id number] 00:00:00* Test Item Value Reference Range Interpretation Comme nts CHOLESTEROL (test code = 2210) 181 MG/DL TRIGLYCERIDES (test code = 2232) 81 MG/DL HDL CHOLESTEROL (test code = 2220) 46 MG/DL CALC LDL CHOL (test code = 2237) 117 MG/DL RISK RATIO LDL/HDL (test cod e = 2238) 2.54 RATIO Robert CaliCOMPREHENSIVE METABOLIC [id number] 00:00:00* Test Item Value Reference Range Interpretation Comme nts GLUCOSE (test code = 2217) 102 MG/DL BUN (test code = 2208) 10 MG/DL CREATININE (test code = 2214) 0.67 MG/DL eGFR AMER. (test cod e = 08980) 126 ML/MIN/1.73 eGFR NON- AMER. (test code = 40051) 108 ML/MIN/1.73 CALC BUN/CREAT (test code = [...] (test code = 2219) 18 U/L Robert [id number] 00:00:00* Test Item Value Reference Range Interpretation Comme nts TSH, THIRD GENERATION (test code = 2821) 1.140 UIU/ML Robert CaliVITAMIN D, 25 [id number] 00:00:00* Test Item Value Reference Range Interpretation Comme nts VITAMIN D, 25 OH (test code = 4958) 17 NG/ML Robert CaliCBC W/AUTO [id number] 00:00:00* Test Item Value Reference Range Interpretation [...] ABS NUCLEATED RBCS (test cod e = 05241) 0.00 K/UL Robert CaliHEMOGLOBIN [id number] 00:00:00* Test Item Value Reference Range Interpretation Comme evelia HEMOGLOBIN A1c (test code = 73373) 5.5 % Robert CaliLIPID [id number] 00:00:00* Test Item Value Reference Range Interpretation Comme nts CHOLESTEROL (test code = 2210) 181 MG/DL TRIGLYCERIDES (test code = 2232) 81 MG/DL HDL CHOLESTEROL (test code = 2220) 46 MG/DL CALC LDL CHOL (test code = 2237) 117 MG/DL RISK RATIO LDL/HDL (test cod e = 2238) 2.54 RATIO Robert CaliCOMPREHENSIVE METABOLIC [id number] 00:00:00* Test Item Value Reference Range Interpretation Comme nts GLUCOSE (test code = 2217) 102 MG/DL BUN (test code = 2208) 10 MG/DL CREATININE (test code = 2214) 0.67 MG/DL eGFR AMER. (test cod e = 53389) 126 ML/MIN/1.73 eGFR NON- AMER. (test code = 26053) 108 ML/MIN/1.73 CALC BUN/CREAT (test code = [...] (test code = 2219) 18 U/L Robert [id number] 00:00:00* Test Item Value Reference Range Interpretation Comme nts TSH, THIRD GENERATION (test code = 2821) 1.140 UIU/ML Robert CaliVITAMIN D, 25 [id number] 00:00:00* Test Item Value Reference Range Interpretation Comme nts VITAMIN D, 25 OH (test code = 4958) 17 NG/ML Robert CaliCBC W/AUTO [id number] 00:00:00* Test Item Value Reference Range Interpretation [...] ABS NUCLEATED RBCS (test cod e = 62535) 0.00 K/UL Robert CaliHEMOGLOBIN [id number] 00:00:00* Test Item Value Reference Range Interpretation Comme nts HEMOGLOBIN A1c (test code = 55046) 5.5 % oRbert CaliLIPID [id number] 00:00:00* Test Item Value Reference Range Interpretation Comme nts CHOLESTEROL (test code = 2210) 181 MG/DL TRIGLYCERIDES (test code = 2232) 81 MG/DL HDL CHOLESTEROL (test code = 2220) 46 MG/DL CALC LDL CHOL (test code = 2237) 117 MG/DL RISK RATIO LDL/HDL (test cod e = 2238) 2.54 RATIO Robert CaliCOMPREHENSIVE METABOLIC [id number] 00:00:00* Test Item Value Reference Range Interpretation Comme nts GLUCOSE (test code = 2217) 102 MG/DL BUN (test code = 2208) 10 MG/DL CREATININE (test code = 2214) 0.67 MG/DL eGFR AMER. (test cod e = 66156) 126 ML/MIN/1.73 eGFR NON- AMER. (test code = 56612) 108 ML/MIN/1.73 CALC BUN/CREAT (test code = [...] (test code = 2219) 18 U/L Robert [id number] 00:00:00* Test Item Value Reference Range Interpretation Comme [facility] TSH, THIRD GENERATION (test code = 2821) 1.140 UIU/ML Robert CaliVITAMIN D, 25 [id number] 00:00:00* Test Item Value Reference Range Interpretation Comme [facility] VITAMIN D, 25 OH (test code = 4958) 17 NG/ML Robert CaliCBC W/AUTO [id number] 00:00:00* Test Item Value Reference Range Interpretation [...] ABS NUCLEATED RBCS (test cod e = 66442) 0.00 K/UL Robert CaliHEMOGLOBIN [id number] 00:00:00* Test Item Value Reference Range Interpretation Comme nts HEMOGLOBIN A1c (test code = 19311) 5.5 % Robert CaliLIPID [id number] 00:00:00* Test Item Value Reference Range Interpretation Comme nts CHOLESTEROL (test code = 2210) 181 MG/DL TRIGLYCERIDES (test code = 2232) 81 MG/DL HDL CHOLESTEROL (test code = 2220) 46 MG/DL CALC LDL CHOL (test code = 2237) 117 MG/DL RISK RATIO LDL/HDL (test cod e = 2238) 2.54 RATIO Robert CaliCOMPREHENSIVE METABOLIC [id number] 00:00:00* Test Item Value Reference Range Interpretation Comme nts GLUCOSE (test code = 2217) 102 MG/DL BUN (test code = 2208) 10 MG/DL CREATININE (test code = 2214) 0.67 MG/DL eGFR AMER. (test cod e = 59568) 126 ML/MIN/1.73 eGFR NON- AMER. (test code = 43739) 108 ML/MIN/1.73 CALC BUN/CREAT (test code = 2235) 15 RATIO SODIUM (test code = 2231) 140 MEQ/L POTASSIUM (test code = 2228) 4.7 MEQ/L CHLORIDE (test code = 2215) 106 MEQ/L CARBON DIOXIDE (test code = 2206) 23 MEQ/L CALCIUM (test code = 2209) 9.1 MG/DL PROTEIN, TOTAL (test code = 222) 6.9 G/DL ALBUMIN (test code = 2201) 4.0 G/DL CALC GLOBULIN (test code = 2240) 2.9 G/DL CALC A/G RATIO (test code = 2234) 1.4 RATIO BILIRUBIN, TOTAL (test code = 2206) <0.2 MG/DL ALKALINE PHOSPHATASE (test code = 4) 127 U/L AST (test code = 2217) 18 U/L ALT (test code = 9) 18 U/L Robert Arnol [id number] 00:00:00* Test Item Value Reference Range Interpretation Comme [facility] TSH, THIRD GENERATION (test code = 2821) 1.140 UIU/ML Robert Amb[place] National CityVITAMIN D, 25 [id number] 00:00:00* Test Item Value Reference Range Interpretation Comme [facility] VITAMIN D, 25 OH (test code = 4958) 17 NG/ML Robert Ambrose VirajCBC W/AUTO [id number] 00:00:00* Test Item Value Reference Range Interpretation [...] ABS NUCLEATED RBCS (test cod e = 02374) 0.00 K/UL Robert CaliHEMOGLOBIN [id number] 00:00:00* Test Item Value Reference Range Interpretation Comme nts HEMOGLOBIN A1c (test code = 11432) 5.5 % Robert CaliLIPID [id number] 00:00:00* Test Item Value Reference Range Interpretation Comme nts CHOLESTEROL (test code = 2210) 181 MG/DL TRIGLYCERIDES (test code = 2232) 81 MG/DL HDL CHOLESTEROL (test code = 2220) 46 MG/DL CALC LDL CHOL (test code = 2237) 117 MG/DL RISK RATIO LDL/HDL (test cod e = 2238) 2.54 RATIO Robert CaliCOMPREHENSIVE METABOLIC [id number] 00:00:00* Test Item Value Reference Range Interpretation Comme nts GLUCOSE (test code = 2217) 102 MG/DL BUN (test code = 2208) 10 MG/DL CREATININE (test code = 2214) 0.67 MG/DL eGFR AMER. (test cod e = 73056) 126 ML/MIN/1.73 eGFR NON- AMER. (test code = 72318) 108 ML/MIN/1.73 CALC BUN/CREAT (test code = [...] (test code = 2219) 18 U/L Robert [id number] 00:00:00* Test Item Value Reference Range Interpretation [...] mg/dL VERY HIGH.........>/= 190 mg/dL Comments to [facility]: ADD TO AM LABSLIPID PROFILE (CORONARY RISK)2018-07-20 [...] code = LDL) MG/DL 0-99 Comments to [facility]: ADD TO AM LABSPROTHROMBIN [id number] 06:24:00* Test Item Value Reference Range Interpretation [...] systemic embolism. 3.0 - 4.5 Comments to [facility]: NURSE WILL BRING SPECIMEN TO LABPTT ACTIVATED 2018-07-20 06:24:00* Test Item Value Reference Range Interpretation Comme nts PTT ACTIVATED (test code = APTT) 29.3 SECONDS 22.0-33.0 N Comments to [facility]: NURSE WILL BRING SPECIMEN TO LABBASIC METABOLIC [...] CA) 9.6 MG/DL 8.4-10.2 N Comments to [facility]: NURSE WILL BRING SPECIMEN TO LAB Comments to [facility]: NURSE WILL BRING SPECIMEN TO [id number] 06:13:00* Test Item Value Reference Range Interpretation Comme nts MAGNESIUM (test code = MAG) 2.2 MG/DL 1.6-2.3 N Comments to [facility]: NURSE WILL BRING SPECIMEN TO LAB Comments to [facility]: NURSE WILL BRING SPECIMEN TO LABCBC W/AUTO [id number] 06:02:00 * Test Item Value Reference Range [...]
[2024-02-13] MEDS ORDERED: droPERidol 5 MG/2 ML VIAL ONE (11:41)
[2024-02-13] MEDS ORDERED: NA CHLORIDE 0.9% 500 ML ONE (11:42)
[2024-02-13] MEDS ORDERED: KETOROLAC 30 MG/ML INJ ONE (11:42)
[2024-02-13] MEDS ORDERED: DIPHENHYDRAMINE 50 MG/ML VIAL ONE ×2 (11:42→13:07)
--- NOTE | 2024-02-13 12:08 | RAD REPORT ---
EXAM: CT brain without contrast HISTORY: HEADACHE COMPARISON: 11/16/2023 TECHNIQUE: Multiple contiguous axial images were obtained and a CT of the brain without contrast. Sag ittal and coronal reformats were performed. One or more of the following dose reduction techniques were used: Automated exposure control, adjust ment of the mA and/or kV according to patient size, and/or iterative reconstruction. FINDINGS: No evidence of hydrocephalus, intracranial hemorrhage, or extra-axial fluid collection. The brain is normal in morphology. No evidence of midline shift or areas of brain edema. The calvarium is intact. The visualized paranasal sinuses and mastoid air cells are essentially clear . IMPRESSION: No evidence of acute intracranial abnormality.
[2024-02-13 12:20] LABS: Absolute Basophils 0.1 K/uL (0-0.5); Absolute Eosinophils 0.2 K/uL (0-0.5); Absolute Lymphocytes (CBC) 1.4 K/uL (0.7-4.9); Absolute Monocytes 0.3 K/uL (0.1-1.3); Absolute Neutrophil 4.6 K/uL (1.8-8.0); Basophils % 0.8 % (0-1.3); Eosinophils % 3.4 % (0-4.4); Hematocrit 35.6 % (36.0-45.0); Hemoglobin 11.6 g/dL (12.0-15.0); Lymphocytes % 20.7 % (15.3-44.8); MCH 24.8 pg (27.0-35.0); MCHC 32.6 g/dL (32.0-36.0); MCV 76.1 fL (80-100); MPV 8.7 fL (7.6-11.3); Monocytes % 5.1 % (3.3-12.3); Nucleated Red Blood Cells % 0.1 % (0-0); Platelets 251 thou/uL (152-406); RBC Red Blood Cell Count 4.68 M/uL (3.86-4.86); Red Cell Distribution Width 20.7 % (12.1-15.2)
[2024-02-13 12:25] LABS: Anion Gap 10.1 mEq/L (5.0-15.0); Potassium 4.1 mEq/L (3.5-5.1); Troponin High Sensitivity 3.5 pg/mL (<58.9)
[2024-02-13 13:02] LABS: Platelet Estimate ADEQ; White Blood Cell Scan OK (OK)
[2024-02-13 13:03] LABS: Anisocytosis 1+; Blood Morphology Comment NOTED (NOT SEEN); Macrocytosis 1+; Microcytosis 1+; Platelets, Giant FEW; Polychromasia SLIGHT
--- NOTE | 2024-02-13 13:27 | EDPHYS ---
Physician Documentation [facility] Name: Shivani Lagunas Age: 48 yrs Sex: Female : 1975 Arrival Date: 02/13/2024 Time: 11:10 Bed 13 Private MD: ED Physician Tony Miranda HPI: 02/12 11:25 This 48 yrs old Female presents to ER via Ambulatory with complaints of ec2 Headache. 11:25 Patient arrives today for evaluation of a headache. Patient reports she been having ec2 several days of headache. Patient reports the headache is a pressure in her head along with nausea that is associated with that. No vomiting, no diarrhea. Patient reports that she had some word finding difficulties last night. Patient reports otherwise no cough and cold symptoms, no urinary complaints. Reports that she has been having issues with word finding since several months to years ago when she was diagnosed with a TIA and this is typical for her.. Historical: - Allergies: 11:17 Sulfa (Sulfonamide Antibiotics); ll1 - PMHx: 11:17 Anemia; Bipolar disorder; Congestive heart failure; Hypertensive disorder; ll1 Schizophrenia; - PSHx: 11:17 Appendectomy; section; Cholecystectomy; ll1 - Immunization history:: Adult Immunizations up to date. - Infectious Disease History:: Denies. - Social history:: Smoking status: Patient denies any tobacco usage or history of. ROS: 11:25 Constitutional: as per hpi ec2 Exam: 11:26 Constitutional: GEN: NAD Head: atraumatic Eyes: EOMI Ears: External ears are ec2 normal. CV: regular rate LUNGS: no respiratory distress ABD: non-distended SKIN: no evidence of rashes MSK: no evidence of trauma. Neuro: Cranial nerves II through XII intact, strength intact all 4 extremities, no pronator drift, normal venahm-ycbq-clbkov, normal gait Vital Signs: 11:18 BP 156 / 101; Pulse 93; Resp 17; Temp 97.4; Pulse Ox 98% ; Weight 97.52 kg; Height 5 ll1 ft. 6 in. ; Pain 10/10; 13:20 BP 140 / 83; Pulse 72; Resp 16; Temp 97.5(O); Pulse Ox 100% on R/A; Pain 3/10; le1 11:18 Body Mass Index 34.70 (97.52 kg, 167.64 cm) ll1 11:18 Pain Scale: Adult ll1 13:20 Pain Scale: Adult le1 MDM: 11:23 Medical Screening Exam initiated ec2 11:26 Data reviewed: vital signs, nurses notes. ED course: Patient arrives today for ec2 evaluation of a headache. Examination yields a reassuring neurologic exam. Will obtain lab work, CT scan of the head and treat the patient's headache. Suspect headache syndrome, doubt stroke given associated headache, will additionally evaluate for intracranial mass.. 13:26 ED course: On reassessment, pt w/ marked improvement in status, will d/c to home, ec2 return precautions given. 02/12 11:24 Order name: Basic Metabolic Panel; Complete Time: 12:33 ec2 02/12 11:24 Order name: CBC with Diff; Complete Time: 13:13 ec2 02/12 11:24 Order name: Troponin HS; Complete Time: 12:33 ec2 02/12 13:03 Order name: CBC Smear Scan; Complete Time: 13:13 EDMS 02/12 11:26 Order name: CT Head Brain wo Cont; Complete Time: 12:25 ec2 02/12 11:24 Order name: Cardiac monitoring; Complete Time: 12:00 ec2 02/12 11:24 Order name: EKG - Nurse/Tech; Complete Time: 12:00 ec2 02/12 11:24 Order name: IV Saline Lock; Complete Time: 12:00 ec2 02/12 11:24 Order name: Labs collected and sent; Complete Time: 12:00 ec2 02/12 11:24 Order name: O2 Per Protocol; Complete Time: 12:00 ec2 02/12 11:24 Order name: O2 Sat Monitoring; Complete Time: 12:00 ec2 Administered Medications: 12:00 Drug: Droperidol IVP 1.25 mg IVP once Route: IVP; Site: right antecubital; rs5 13:20 Follow up: Response: Pain is decreased le1 12:00 Drug: diphenhydrAMINE IVP 25 mg IVP once Route: IVP; Site: right antecubital; rs5 13:20 Follow up: Response: Pain is decreased le1 12:00 Drug: NS 0.9% IV 500 ml 500 ml IV at 1 bolus once; to be given as a bolus over 30 rs5 minutes Volume: 500 ml; Route: IV; Rate: 1 bolus; Site: right antecubital; 14:20 Follow up: Response: No adverse reaction; IV Status: Completed infusion le1 12:00 Drug: Ketorolac IVP 15 mg IVP once Route: IVP; Site: right antecubital; rs5 13:20 Follow up: Response: Pain is decreased le1 13:14 Drug: diphenhydrAMINE IVP 50 mg IVP once Route: IVP; Site: right antecubital; le1 14:20 Follow up: Response: Pain is decreased le1 Disposition Summary: 02/13/24 13:26 Discharge Ordered Notes: Location: Home ec2 Condition: Stable ec2 Diagnosis - Headache ec2 Followup: ec2 - With: Private Physician - When: - Reason: Re-evaluation by your physician Discharge Instructions: - Discharge Summary Sheet ec2 - General Headache Without Cause ec2 Forms: - Medication Reconciliation Form ec2 - Antibiotic Education ec2 - Prescription Opioid Use ec2 - Patient Portal Instructions ec2 - Leadership Thank You Letter ec2 Signatures: Dispatcher [employer] Demi Montoya RN RN ll1 Zan Murdock RN RN rs5 Tony Miranda MD MD ec2 Ori Fontanez RN RN le1
--- NOTE | 2024-02-13 13:27 | ER ---
Nurse's Notes [facility] Name: Shivani Lagunas Age: 48 yrs Sex: Female : 1975 Arrival Date: 02/13/2024 Time: 11:10 Bed 13 Private MD: Diagnosis: Headache Presentation: 02/12 11:18 Coronavirus screen: Client denies travel out of the [place] in the last 14 days. At this ll1 time, the client does not indicate any symptoms associated with coronavirus-19. Ebola Screen: Patient denies travel to an Ebola-affected area in the 21 days before illness onset. Initial Sepsis Screen: Does the patient meet any 2 criteria? No. Patient's initial sepsis screen is negative. Does the patient have a suspected source of infection? No. Patient's initial sepsis screen is negative. Risk Assessment: Do you want to hurt yourself or someone else? Patient reports no desire to harm self or others. Onset of symptoms was February 06, 2024. 11:18 Method Of Arrival: Ambulatory ll1 11:18 Acuity: ALICIA 2 ll1 11:20 Chief complaint: Patient states: Still having PÉREZ and CP since last visit here 02/08. PÉREZ ll1 is severe today. Last night she had trouble getting the words out while talking on the phone at 11:30 PM. States it lasted for a few minutes, then got better. R eye more closed than left. + lightheaded and still having CP. Triage Assessment: 11:22 Headache History: The patient has had previous headaches and this one is similar to ll1 previous episodes. General: Appears uncomfortable, Behavior is calm, cooperative, appropriate for age. Pain: Complains of pain in head Pain currently is 10 out of 10 on a pain scale. Quality of pain is described as aching, throbbing, Pain began 02/05 Also complains of nausea. Neuro: Reports headache. Historical: - Allergies: 11:17 Sulfa (Sulfonamide Antibiotics); ll1 - PMHx: 11:17 Anemia; Bipolar disorder; Congestive heart failure; Hypertensive disorder; ll1 Schizophrenia; - PSHx: 11:17 Appendectomy; section; Cholecystectomy; ll1 - Immunization history:: Adult Immunizations up to date. - Infectious Disease History:: Denies. - Social history:: Smoking status: Patient denies any tobacco usage or history of. Screenin:14 [facility] ED Fall Risk Assessment (Adult) History of falling in the last 3 months, le1 including since admission No falls in past 3 months (0 pts) Confusion or Disorientation No (0 pts) Intoxicated or Sedated No (0 pts) Impaired Gait No (0 pts) Mobility Assist Device Used No (0 pt) Altered Elimination No (0 pt) Score/Fall Risk Level 0 - 2 = Low Risk Oriented to surroundings, Maintained a safe environment, Educated pt \T\ family on fall prevention, incl call for assistance when getting out of bed, Assessed \T\ reinforced patient's understanding of fall precautions, Hourly rounding (assess needs \T\ fall precautionary measures) done. Abuse screen: Denies threats or abuse. Denies injuries from another. Nutritional screening: No deficits noted. Tuberculosis screening: No symptoms or risk factors identified. Assessment: 14:14 Pain: Complains of pain in face Pain currently is 3 out of 10 on a pain scale. Quality le1 of pain is described as aching. Vital Signs: 11:18 BP 156 / 101; Pulse 93; Resp 17; Temp 97.4; Pulse Ox 98% ; Weight 97.52 kg; Height 5 ll1 ft. 6 in. ; Pain 10/10; 13:20 BP 140 / 83; Pulse 72; Resp 16; Temp 97.5(O); Pulse Ox 100% on R/A; Pain 3/10; le1 11:18 Body Mass Index 34.70 (97.52 kg, 167.64 cm) ll1 11:18 Pain Scale: Adult ll1 13:20 Pain Scale: Adult le1 ED Course: 11:12 Patient arrived in ED. im 11:15 Tony Miranda MD is Attending Physician. ec2 11:19 Triage completed. ll1 11:22 Arm band placed on Patient placed in an exam room, on a stretcher. ll1 11:28 Zan Murdock, AMANDA is Primary Nurse. rs5 12:03 Primary Nurse role handed off by Zan Murdock, AMANDA le1 12:03 Ori Fontanez RN is Primary Nurse. le1 12:04 CT Head Brain wo Cont In Process Unspecified. EDMS 14:15 Patient has correct armband on for positive identification. Bed in low position. Call le1 light in reach. Side rails up X2. Provided Education on: Informed patient to use call light if needed.. 14:15 No provider procedures requiring assistance completed. le1 14:20 IV discontinued, intact, bleeding controlled, No redness/swelling at site. Pressure le1 dressing applied. Administered Medications: 12:00 Drug: Droperidol IVP 1.25 mg IVP once Route: IVP; Site: right antecubital; rs5 13:20 Follow up: Response: Pain is decreased le1 12:00 Drug: diphenhydrAMINE IVP 25 mg IVP once Route: IVP; Site: right antecubital; rs5 13:20 Follow up: Response: Pain is decreased le1 12:00 Drug: NS 0.9% IV 500 ml 500 ml IV at 1 bolus once; to be given as a bolus over 30 rs5 minutes Volume: 500 ml; Route: IV; Rate: 1 bolus; Site: right antecubital; 14:20 Follow up: Response: No adverse reaction; IV Status: Completed infusion le1 12:00 Drug: Ketorolac IVP 15 mg IVP once Route: IVP; Site: right antecubital; rs5 13:20 Follow up: Response: Pain is decreased le1 13:14 Drug: diphenhydrAMINE IVP 50 mg IVP once Route: IVP; Site: right antecubital; le1 14:20 Follow up: Response: Pain is decreased le1 Medication: 14:15 VIS not applicable for this client. le1 Outcome: 13:26 Discharge ordered by . ec2 14:20 Discharged to home ambulatory, le1 14:20 Condition: improved 14:20 Discharge instructions given to patient, Instructed on discharge instructions, follow up and referral plans. Demonstrated understanding of instructions, follow-up care, 14:21 Patient left the ED. le1 Signatures: Dispatcher [employer] Demi Montoya RN RN ll1 Zan Murdock RN RN rs5 Rohini Garcia Edwin, MD MD ec2 Ori Fontanez RN RN le1 Corrections: (The following items were deleted from the chart) 14:14 13:20 BP 140 / 83; Pulse 72bpm; Resp 16bpm; Pulse Ox 100% RA; Pain 04/21, Adult; le1 le1
[2024-02-13 15:33] VITALS: BP 140/83; TEMP 97.5; O2SAT 100
== END 2024-02-13 14:21 | disposition home or self-care (01) ==
LOC: ER 11:10
DX: R51.9 Headache, unspecified (principal)
CPT/HCPCS: 36415; 70450; 80048; 84484; 85025; 96361; 96374; 96375; 99284; J1200; J1790; J7040

== ENCOUNTER 2024-02-24 10:42 | Emergency (ER) | payer OTHER, SELFPAY ==
--- OUTSIDE RECORDS SUMMARY | 2024-02-24 11:01 | XMS REPORT | Continuity of Care Document ---
Author Name Unknown Address [address] [facility] [address] [place] [address] [facility] thconnect Address [address] [place] [address] Care Team Providers Care Warehouse Technician Name Role Phone Reji Montiel, [facility] Primary Care Physician Jae Holloway Attending Clinician Unavailable Doctor Unassigned, [place] Attending Clinician U Tavon Ruth MD Attending Clinician [phone] ALESHA CROWE Attending Clinician Unavailable Elidia Cordero MD Attending Clinician [phone] Dominic Keita MD Attending Clinician [phone] Jose Westbrook MD Attending Clinician [phone] JOSE WESTBROOK Attending Clinician Unavailable FARZANA SAUCEDA Attending Clinician Unavailable MARYSOL PABON Attending Clinician Unavailable MARYSOL PABON Attending Clinician Unavailable Marysol Pabon DO Attending Clinician [phone] Rhiannon Vizcarra MD Attending Clinician [phone] Dominic Keita MD Attending Clinician [phone] DAVIDSON SUTHERLAND Attending Clinician Unavailable Consuelo BAUER, Elidia Gamble Attending Clinician [phone] EMILIA SNOWDEN Attending Clinician Annia vailable Doctor Unassigned, [place] Attending Clinician U SARA Day Attending Clinician UnavailSARA Dorado Attending Clinician UnavailJewel Forbes MD Attending Clinician [phone] [facility] Attending Clinician Unavailable JEWEL CUNHA Attending Clinician Unavaila JENNY Norton Attending Clinician Unavailable JENNY ARRIAGA Attending Clinician Unavailable Dexter Dias MD Attending Clinician [phone] Davidson Sutherland MD Attending Clinician [phone] [facility] Attending Clinician Unavailable DEXTER DIAS Attending Clinician Unavailable GC_GCBZW_Kadiyala_S Attending Clinician Unavaila ONEIDA Del Rosario Attending Clinician Unavailable DOMINIC KEITA Attending Clinician UnavailHunter Sahni MD Attending Clinician [phone] Ting Grissom MD Attending Clinician [phone] RADIOLOGY Attending Clinician Unavailable DORA NEWMAN Attending Clinician Unavailable Dora Newman NP Attending Clinician + [phone] Kath Vences MD Attending Clinician + [phone] [facility] Attending Clinician UnavailKATH Grady Attending Clinician Unavailchris russell Pathology Attending Clinician Unavailable IGOR SAAVEDRA Attending Clinician Unavaila HILARY Ramires Attending Clinician UnavailHILARY Conrad Attending Clinician UnavailIgor pfeiffer Rai, MD Attending Clinician Unava ilGIGI Juarez Attending Clinician Unavailable Gigi Monroy DO Attending Clinician [phone] Zane Martinez MD Attending Clinician [phone] Marycruz VAZQUEZ, Deonte Attending Clinician Unavailable UNKNOWN, ATTENDING Attending Clinician UnavailSALLY Lara Attending Clinician Unavail able SALLY MITCHELL Attending Clinician Unavail able Salbador Lockwood MD Attending Clinician [phone] SALBADOR LOCKWOOD Attending Clinician Unavailable HALIMA CONNOR Attending Clinician Unavailab Halima Choi DO Attending Clinician [phone] ROBERT NOWAK Attending Clinician Unavail able Patti Hutton Attending Clinician [phone] CRISTO MARTINEZ Attending Clinician Unavail able JEWEL MORAES Attending Clinician UnaKATH Sen Attending Clinician Unav ANGELA Richardson Attending Clinician Unavailab RHIANNON Durant Admitting Clinician Unavailable GC_GCBZW_Kadiyala_S Admitting Clinician Unavaila DOMINIC Watts Admitting Clinician Unavailchris Keita MD, [facility] Admitting Clinician [phone] Payers Payer Name Policy Type Policy Number Effective Date Expirati on Date Source [facility] [id number] 2023 00:00:00 [facility] Snupps [id number] 2022 00:00:00 MEDICAID SSI PENDING PENDING 2021 [...] known active problems Disease [facility] Constipate d Constipate d Problem [facility] Imaging of brain abnormal Abnormal brain scan [facility] Seizure Seizure Problem [facility] Chronic intractabl e migraine without aura Chronic migraine without aura, intractabl e, without status migrainosu s Problem [facility] Skin sensation disturbanc e Facial tingling sensation [facility] Magnetic resonance imaging of brain abnormal White matter abnormalit y on MRI of brain Problem [facility] Disorder of autonomic nervous system Autonomic dysfunctio n [facility] Benign intracrani al hypertensi on Elevated intracrani al pressure Problem [facility] Myoclonus Myoclonic jerking Problem [facility] Cervical dystonia Cervical dystonia Problem [facility] Carpal tunnel syndrome Carpal tunnel syndrome, bilateral upper limbs [facility] Peripheral neuropathy Peripheral neuropathy Problem [facility] Allergies, Adverse Reactions, Alerts Allergy [...] Drug Class Active Hives 424 00:00: 00 [facility] Substanc e with sulfonam chelo structur e and antibact erial mechanis m of action (substan ce) Substanc e with sulfonam chelo structur e and antibact erial mechanis m of action (substan ce) Active Unknown [facility] SULFA (SULFONA MIDE ANTIBIOT ICS) Allergy to substanc e Active [facility] Social History Social Habit Start Date Stop Date Quantity Comments Source Gender identity [facility] Sexual orientation [facility] Sex Assigned [facility] History of Tobacco Use [facility] History of Social function 2023-09-03 00:00:00 2023-09-03 00:00:00 [facility] Exposure to SARS-CoV-2 (event) 2022-02-05 00:00:00 2022-02-15 08:57:00 Not sure [facility] Tobacco use and exposure 2021-08-24 00:00:00 2021-08-24 00:00:00 Smokeless tobacco non-user [facility] Smoking Status Start Date Stop Date Source Never Smoker [facility] Medical Medications Ordered Medication Name Filled Medication Name Start Date Stop Date Current Medication? Ordering Clinician Indication Dosage Frequency Signature (SIG) Comments Components Source busPIRone 30 mg tablet 2023-02 00:00: 00 Yes [id number] 30mg Take 1 tablet by mouth in the morning and 1 tablet in the evening. [facility] DULoxetine 60 mg capsule 2023-02 00:00: 00 Yes [id number] 60mg Take 1 capsule by mouth in the morning and 1 capsule in the evening. [facility] Venofer 200 mg iron/10 mL intravenous solution 2023-02 00:00: 00 Yes 10mg iron/10 mL Robert [facility]i traZODone 50 mg tablet 2023-02 00:00: 00 Yes [id number] Take 1-2 tablets daily at bedtime for sleep [facility] clonazePAM 1 mg tablet 2023-02 00:00: 00 Yes [id number] TAKE 1/2 TO 1 TABLET BY MOUTH ONCE DAILY NEEDED FOR SEVERE ANXIETY [facility] traZODone 50 mg tablet 2023-02 00:00: 00 01-27 00:00 :00 No [id number] Take 1-2 tablets for sleep [facility] Cyclobenzap rine HCl 10 MG Cyclobenzap rine HCl 10 MG 2023-02 00:00: 00 No 1{table t_at_be dtime_a s_neede d} QD Cyclobenza amber HCl 10 MG Venofer 200 mg iron/10 mL intravenous solution 2023-02 00:00: 00 Yes 10mg iron/10 mL Robetr Cali busPIRone 30 mg tablet 2023-02 00:00: 00 02-11 00:00 :00 No [id number] TAKE 1 TABLET BY MOUTH EVERY MORNING AND TAKE ONE TABLET BY MOUTH EVERY EVENING [facility] DULoxetine 60 mg capsule 2023-02 00:00: 00 02-11 00:00 :00 No [id number] TAKE 1 CAPSULE BY MOUTH 2 TIMES A DAY ( EVERY MORNING AND EVERY EVENING ) [facility] ibuprofen 800 mg tablet 2023-02 00:00: 00 Yes 1mg Robert Cali Methocarbam ol 500 MG Methocarbam ol 500 MG 2023-02 00:00: 00 No 1.5{tab lets} BID Methocarba mol 500 MG Botox 200 UNIT Botox 200 UNIT 2023-02 00:00: 00 No Botox 200 UNIT ibuprofen 800 mg tablet 2023-02 00:00: 00 Yes 1mg Robert Cali TRAZODONE 50 mg tablet 2023-02 00:00: 00 01-20 00:00 :00 No [id number] TAKE 1 AND 1/2 TABLET BY MOUTH AT BEDTIME [facility] Vitamin D3 25 mcg (1,000 unit) tablet 2023-02 0-17 00:00: 00 Yes 1(1,000 unit) Robert Cali diclofenac sodium 75 mg tablet,mikal yed release 2023-02 0-15 00:00: 00 Yes 1mg Robert Cali clonazePAM 1 mg tablet 11-09 00:00: 00 01-24 00:00 :00 No [id number] TAKE 1/2 TO 1 TABLET BY MOUTH ONCE DAILY NEEDED FOR SEVERE ANXIETY [facility] lithium carbonate CR 450 mg SR tablet 9-04 00:00: 00 11-14 00:00 :00 No [id number] 900mg Take 2 tablets by mouth at bedtime. [facility] traZODone 50 mg tablet 8-07 00:00: 00 12-10 00:00 :00 No [id number] 75mg Take 1.5 tablets by mouth at bedtime for 90 days. [facility] busPIRone 30 mg tablet 09-02 00:00: 00 01-07 00:00 :00 No [id number] 30mg Take 1 tablet by mouth in the morning and 1 tablet in the evening. [facility] DULoxetine 60 mg capsule 09-02 00:00: 00 01-07 00:00 :00 No [id number] 60mg Take 1 capsule by mouth in the morning and 1 capsule in the evening. Follow up for refills [facility] clonazePAM (KLONOPIN) 1 mg tablet 09-02 00:00: 00 11-09 00:00 :00 No [id number] 1mg Take 1 tablet by mouth once daily as needed for Other (severe anxiety). Take 0.5mg to 1mg as needed for severe anxiety [facility] traZODone 50 mg tablet 7-16 00:00: 00 09-18 00:00 :00 No [id number] 50mg Take 1 tablet by mouth at bedtime. May cut tablet in half. Follow up for refills [facility] busPIRone 10 mg tablet 7-16 00:00: 00 09-02 00:00 :00 No [id number] 20mg Take 2 tablets by mouth in the morning and 2 tablets in the evening. Follow up for refills [facility] ferric derisomalto se (MONOFERRIC ) 100 mg iron/mL Soln 6-26 00:00: 00 08-08 04:59 :00 No [id number] 500mg Inject 500 mg intravenou sly once now for 1 dose. [facility] clonazePAM 1 mg tablet 20 00:00: 00 09-02 00:00 :00 No [id number] Take half to 1 tablet by mouth once daily as needed for extreme anxiety. Attempt to minimize use. Follow-up for continued refills. [facility] lithium carbonate CR 450 mg SR tablet 18 00:00: 00 10-16 00:00 :00 No [id number] 900mg Take 2 tablets by mouth at bedtime. [facility] omeprazole 40 mg capsule 13 00:00: 00 07-21 04:59 :00 No [id number] 40mg Take 1 capsule by mouth in the morning and 1 capsule in the evening. Take with meals. Do all this for 360 days. [facility] sucralfate 1 gram tablet 13 00:00: 00 10-24 04:59 :00 No [id number] 1g Take 1 tablet by mouth before meals and at bedtime for 90 days. [facility] traZODone 50 mg tablet 6-06 00:00: 00 08-26 00:00 :00 No [id number] 50mg Take 1 tablet by mouth at bedtime. May cut tablet in half. Follow up for refills [facility] DULoxetine 60 mg capsule 5-10 00:00: 00 09-02 00:00 :00 No [id number] 60mg Take 1 capsule by mouth in the morning and 1 capsule in the evening. Follow up for refills [facility] busPIRone 10 mg tablet 2023-0 5-10 00:00: 00 08-27 00:00 :00 No [id number] 20mg Take 2 tablets by mouth in the morning and 2 tablets in the evening. Follow up for refills [facility] traZODone 50 mg tablet 2023-0 5-10 00:00: 00 07-18 00:00 :00 No [id number] 50mg Take 1 tablet by mouth at bedtime. May cut tablet in half. Follow up for refills [facility] clonazePAM 1 mg tablet 06-12 00:00: 00 07-30 00:00 :00 No [id number] Take half to 1 tablet by mouth once daily as needed for extreme anxiety. Attempt to minimize use. Follow-up for continued refills. [facility] iopamidol (ISOVUE 370-500 mL) injection 80 mL 06-07 02:57: 00 06-07 02:45 :00 No [id number] 80mL 80 mL, Intravenou s, ONCE, 1 dose, On Denise 06/07/23 at 2200, Routine [facility] NaCl 0.9% (NS) injection 5 mL 06-07 02:36: 00 Yes 5mL 5 mL, Slow IV Push, PRN - SEE INSTRUCTIO NS, Starting on Denise 06/07/23 at 2136, Until Discontinu ed, 10 mL [facility] traZODone 50 mg tablet 0 -10 00:00: 00 06-21 00:00 :00 No [id number] 50mg Take 1 tablet by mouth at bedtime. May cut tablet in half. [facility] DULoxetine 60 mg capsule 2023-0 4-10 00:00: 00 06-21 00:00 :00 No [id number] 60mg Take 1 capsule by mouth in the morning and 1 capsule in the evening. [facility] busPIRone 10 mg tablet 2023-0 -26 00:00: 00 06-21 00:00 :00 No [id number] 20mg Take 2 tablets by mouth in the morning and 2 tablets in the evening. [facility] traZODone 50 mg tablet 13 00:00: 00 05-22 00:00 :00 No [id number] 50mg Take 1 tablet by mouth at bedtime. May cut tablet in half. [facility] DULoxetine 60 mg capsule - 00:00: 00 05-22 00:00 :00 No [id number] 60mg Take 1 capsule by mouth in the morning and 1 capsule in the evening. [facility] DULoxetine 60 mg capsule 24 00:00: 00 04-23 00:00 :00 No [id number] 60mg Take 1 capsule by mouth in the morning and 1 capsule in the evening. [facility] Ubrelvy 100 MG Ubrelvy 100 MG - 00:00: 00 No Ubrelvy 100 MG losartan [...] mouth in the morning. [facility] lithium carbonate CR 450 mg SR tablet 2022-02 00:00: 00 07-29 00:00 :00 No [id number] 900mg Take 2 tablets by mouth at bedtime. [facility] clonazePAM 1 mg tablet 2022-02 00:00: 00 06-11 00:00 :00 No [id number] Take half to 1 tablet by mouth once daily as needed for extreme anxiety. Attempt to minimize use. [facility] busPIRone 10 mg tablet 2022-02 00:00: 00 05-07 00:00 :00 No [id number] 20mg Take 2 tablets by mouth in the morning and 2 tablets in the evening. [facility] traZODone 50 mg tablet 2022-02 00:00: 00 04-22 00:00 :00 No [id number] 50mg Take 1 tablet by mouth at bedtime. May cut tablet in half. [facility] DULoxetine 60 mg capsule 2022-02 00:00: 00 03-07 00:00 :00 No [id number] 60mg Take 1 capsule by mouth in the morning and 1 capsule in the evening. [facility] TAKE 1 TABLET EVERY 4 HOURS NEEDED. 2022-02 00:00: 00 06-12 00:00 :00 No 10 Robert Cali busPIRone 15 mg tablet 2022-02 00:00: 00 01-22 00:00 :00 No [id number] 15mg Take 1 tablet by mouth in the morning and 1 tablet in the evening. [facility] lithium carbonate CR 450 mg SR tablet 2022-02 00:00: 00 01-22 00:00 :00 No [id number] 900mg Take 2 tablets by mouth at bedtime. [facility] traZODone 50 mg tablet 2022-02 00:00: 00 01-22 00:00 :00 No [id number] 50mg Take 1 tablet by mouth at bedtime. May cut tablet in half. [facility] DULoxetine 60 mg capsule 2022-02 00:00: 00 01-22 00:00 :00 No [id number] 60mg Take 1 capsule by mouth in the morning and 1 capsule in the evening. [facility] clonazePAM 1 mg tablet 2022-02 00:00: 00 01-22 00:00 :00 No [id number] Take 1 tablet by mouth once daily as needed for extreme anxiety. Attempt to minimize use. [facility] busPIRone 15 mg tablet 2022-02 00:00: 00 12-20 00:00 :00 No [id number] 15mg Take 1 tablet by mouth in the morning and 1 tablet in the evening. [facility] lithium carbonate CR 450 mg SR tablet 2022-02 00:00: 00 12-20 00:00 :00 No [id number] 900mg Take 2 tablets by mouth at bedtime. [facility] traZODone 50 mg tablet 2022-02 00:00: 00 12-20 00:00 :00 No [id number] 50mg Take 1 tablet by mouth at bedtime. May cut tablet in half. [facility] TAKE 2 TABLETS ONCE A DAY BY MOUTH 2022-02 00:00: 00 06-12 00:00 :00 No 200 [facility]i DULoxetine 60 mg capsule 2022-02 00:00: 00 12-20 00:00 :00 No [id number] 60mg Take 1 capsule by mouth in [...] ONCE, 1 dose, On Sun11/03/22 at 1145[facility] butalbital- acetaminoph en-caff (ESGIC) 50-325-40 mg tablet 1 tablet 11-03 16:00: 00 11-03 16:21 :00 No 1{tbl} 1 tablet, Oral, ONCE, 1 dose, On Sun11/03/22 at 1100, [facility] dexamethaso ne sod phos PF injection 10 mg 11-03 16:00: 00 11-03 16:27 :00 No 10mg 10 mg, Slow IV Push, ONCE, 1 dose, On Sun11/03/22 at 1100, 1 mL [facility] metoclopram chelo HCl (REGLAN) injection 10 mg 11-03 16:00: 00 11-03 16:28 :00 No 10mg 10 mg, Slow IV Push, ONCE, 1 dose, On Sun11/03/22 at 1100, [facility] diphenhydrA MINE (BENADRYL) injection 25 [...] 50-325-40 mg tablet 11-03 00:00: 00 Yes [id number] 1{tbl} Take 1 tablet by mouth every 6 (six) hours as needed for Pain (scale 7-10) or Pain (scale 4-6) for up to 12 doses. [facility] peg-electro lyte soln 236-22.74-6 .74 -5.86 gram solution 10-19 00:00: 00 11-03 00:00 :00 No [id number] Take as directed before colonoscop y [facility] TAKE 1 TABLET DAILY. 10-12 00:00: 00 06-12 00:00 :00 No 40 Robert Cali busPIRone 15 mg tablet 10-04 00:00: 00 12-13 00:00 :00 No [id number] 15mg Take 1 tablet by mouth in the morning and 1 tablet in the evening. [facility] clonazePAM 1 mg tablet 09-28 00:00: 00 12-20 00:00 :00 No [id number] Take 1 tablet by mouth twice daily as needed for anxiety. [facility] DULoxetine 60 mg capsule 09-26 00:00: 00 11-22 00:00 :00 No [id number] 60mg Take 1 capsule by mouth in the morning and 1 capsule in the evening. [facility] lithium carbonate CR 450 mg SR tablet 09-13 00:00: 00 11-28 00:00 :00 No [id number] 900mg Take 2 tablets by mouth at bedtime. [facility] busPIRone 10 mg tablet 09-13 00:00: 00 10-04 00:00 :00 No [id number] 10mg Take 1 tablet by mouth in the morning and 1 tablet in the evening. [facility] clonazePAM 1 mg tablet 08-30 00:00: 00 09-25 00:00 :00 No [id number] Take 1 tablet by mouth twice daily as needed for anxiety. [facility] TAKE 2 TABLETS ONCE A DAY BY MOUTH 08-24 00:00: 00 06-12 00:00 :00 No 200 Robert Cali FUROSEMIDE ORAL 07-26 09:33: 26 07-26 00:00 :00 No 40mg Take 40 mg by mouth daily. [facility] traZODone 50 mg tablet 14 00:00: 00 11-28 00:00 :00 No [id number] 50mg Take 1 tablet by mouth at bedtime. May cut tablet in half. [facility] DULoxetine 60 mg capsule 07-26 00:00: 00 09-25 00:00 :00 No [id number] 60mg Take 1 capsule by mouth in the morning and 1 capsule in the evening. [facility] lithium carbonate CR 450 mg SR tablet 07-26 00:00: 00 09-13 00:00 :00 No [id number] 900mg Take 2 tablets by mouth at bedtime. [facility] busPIRone 10 mg tablet 07-26 00:00: 00 09-13 00:00 :00 No [id number] 10mg Take 1 tablet by mouth in the morning and 1 tablet in the evening. [facility] INHALE 2 PUFFS EVERY 4-6 HOURS NEEDED. 07-22 00:00: 00 06-12 00:00 :00 No [id number] Robert Cali clonazePAM 1 mg tablet 24 00:00: 00 08-29 00:00 :00 No [id number] Take 1 tablet by mouth twice daily as needed for anxiety. [facility] TAKE 1 CAPSULE 3 TIMES DAILY WITH MEALS. 16 00:00: 00 06-12 00:00 :00 No 120 Robert Cali DULoxetine 60 mg capsule -09 00:00: 00 07-26 00:00 :00 No [id number] 60mg Take 1 capsule by mouth in the morning and 1 capsule in the evening. [facility] lithium carbonate CR 450 mg SR tablet -09 00:00: 00 07-26 00:00 :00 No [id number] 900mg Take 2 tablets by mouth at bedtime. [facility] TAKE 1 TABLET TWICE DAILY. 2023-0 5-04 00:00: 00 06-12 00:00 :00 No 75 Robert Cali TAKE 1 TABLET BY MOUTH DAILY 4-11 00:00: 00 06-12 00:00 :00 No 200 Robert Cali TAKE 1 CAPSULE 3 TIMES DAILY WITH MEALS. 4-11 00:00: 00 06-12 00:00 :00 No 120 Robert Cali TAKE 1 TABLET EVERY 4 HOURS NEEDED. - 00:00: 00 06-12 00:00 :00 No 10 [facility] Cali traZODone 50 mg tablet 3-09 00:00: 00 07-26 00:00 :00 No [id number] 50mg Take 1 tablet by mouth at bedtime. May cut tablet in half. [facility] clonazePAM 1 mg tablet 09 00:00: 00 07-05 00:00 :00 No [id number] Take 1 tablet by mouth twice daily as needed for anxiety. [facility] DULoxetine 60 mg capsule 3-09 00:00: 00 06-17 00:00 :00 No [id number] 60mg Take 1 capsule by mouth in the morning and 1 capsule in the evening. [facility] lithium carbonate CR 450 mg SR tablet 3-09 00:00: 00 06-17 00:00 :00 No [id number] 900mg Take 2 tablets by mouth at bedtime. [facility] traZODone 50 mg tablet 1-04 00:00: 00 04-20 00:00 :00 No [id number] 50mg Take 1 tablet by mouth at bedtime. May cut tablet in half. [facility] lithium carbonate CR 450 mg SR tablet 1-04 00:00: 00 04-20 00:00 :00 No [id number] 900mg Take 2 tablets by mouth at bedtime. [facility] DULoxetine 60 mg capsule 1-04 00:00: 00 04-19 00:00 :00 No [id number] 60mg Take 1 capsule by mouth in the morning and 1 capsule in the evening. [facility] clonazePAM 1 mg tablet 1-04 00:00: 00 04-19 00:00 :00 No [id number] Take 1 tablet by mouth twice daily as needed for anxiety. [facility] lithium 600 mg capsule 1-04 00:00: 00 02-15 00:00 :00 No [id number] 600mg Take 1 capsule by mouth in the morning and 1 capsule in the evening. [facility] DULoxetine 60 mg capsule 2021-02 2- 00:00: 00 02-15 00:00 :00 No [id number] 60mg Take 1 capsule by mouth in the morning and 1 capsule in the evening. [facility] traZODone 50 mg tablet 2021-02 00:00: 00 02-15 00:00 :00 No [id number] 50mg Take 1 tablet by mouth at bedtime. May cut tablet in half. [facility] clonazePAM 1 mg tablet 2021-02 00:00: 00 02-15 00:00 :00 No [id number] Take 1 tablet by mouth twice daily as needed for anxiety. [facility] DULoxetine 60 mg capsule 2021-02 00:00: 00 02-07 00:00 :00 No [id number] 60mg Take 1 capsule by mouth in the morning and 1 capsule in the evening. [facility] traZODone 50 mg tablet 2021-02 1- 00:00: 00 01-11 00:00 :00 No [id number] 50mg Take 1 tablet by mouth at bedtime. May cut tablet in half. [facility] DULoxetine 60 mg capsule 2021-02 0-25 00:00: 00 01-09 00:00 :00 No [id number] 60mg Take 1 capsule by mouth in the morning and 1 capsule in the evening. [facility] lithium 600 mg capsule 2021-02 0-20 00:00: 00 02-15 00:00 :00 No [id number] 600mg Take 1 capsule by mouth in the morning and 1 capsule in the evening. [facility] lamoTRIgine 25 mg tablet 2021-1 0-20 00:00: 00 01-11 00:00 :00 No [id number] 50mg Take 2 tablets by mouth in the morning and 2 tablets in the evening. [facility] clonazePAM 1 mg tablet 2021-1 0-20 00:00: 00 01-09 00:00 :00 No [id number] Take 1 tablet by mouth twice daily as needed for anxiety. [facility] lamoTRIgine 25 mg tablet 2021-0 8-26 00:00: 00 11-30 00:00 :00 No [id number] 50mg Take 2 tablets by mouth in the morning and 2 tablets in the evening. [facility] clonazePAM 1 mg tablet 2021-0 8-25 00:00: 00 11-30 00:00 :00 No [id number] Take no more than 1 mg twice daily as needed for anxiety [facility] lithium 600 mg capsule 2021-0 8-25 00:00: 00 11-30 00:00 :00 No [id number] 600mg Take 1 capsule by mouth in the morning and 1 capsule in the evening. [facility] Lamotrigine 50 mg tablet 2021-0 8-25 00:00: 00 10-07 00:00 :00 No [id number] 50mg Take 1 tablet by mouth in the morning and 1 tablet in the evening. [facility] Lamotrigine 50 mg tablet 2021-0 8-11 00:00: 00 10-06 00:00 :00 No [id number] 50mg Take 1 tablet by mouth in the morning and 1 tablet in the evening. [facility] DULoxetine 60 mg capsule 2021-0 7-27 00:00: 00 12-05 00:00 :00 No [id number] 60mg Take 1 capsule by mouth in the morning and 1 capsule in the evening. [facility] Lamotrigine 50 mg tablet 2021-0 7-18 00:00: 00 09-22 00:00 :00 No [id number] 50mg Take 1 tablet by mouth in the morning and 1 tablet in the evening. [facility] lithium 600 mg capsule 7-13 00:00: 00 10-06 00:00 :00 No [id number] 600mg Take 1 capsule by mouth in the morning and 1 capsule in the evening. [facility] DULoxetine 60 mg capsule 08-09 00:00: 00 Yes [id number] 60mg Take 1 capsule by mouth 2 (two) times daily. [facility] traZODone 50 mg tablet 08-09 00:00: 00 01-02 00:00 :00 No [id number] 50mg Take 1 tablet by mouth at bedtime. May cut tablet in half. [facility] clonazePAM 1 mg tablet 08-09 00:00: 00 10-06 00:00 :00 No [id number] Take no more than 1 mg twice daily as needed for anxiety [facility] CYANOCOBALA M INJ [id number] [employer] 06-04 00:00: 00 Yes [facility] DULoxetine 60 mg capsule 05-26 00:00: 00 08-09 00:00 :00 No [id number] 60mg Take 1 capsule by mouth 2 (two) times daily. [facility] traZODone 50 mg tablet 05-26 00:00: 00 08-09 00:00 :00 No [id number] 50mg Take 1 tablet by mouth at bedtime. May cut tablet in half. [facility] vitamin B-12 1,000 mcg tablet 05-23 00:00: 00 11-03 00:00 :00 No [id number] 1000ug Take 1 tablet by mouth daily. [facility] cyanocobala min 1,000 mcg/mL injection 05-23 00:00: 00 11-03 00:00 :00 No [id number] 1000ug 1 mL by Intramuscu lar route weekly. [facility] losartan potassium (LOSARTAN ORAL) 05 09:24: 36 Yes 20mg Take 20 mg by mouth. [facility] FUROSEMIDE ORAL 05-17 09:24: 36 Yes 40mg Take 40 mg by mouth daily. [facility] magnesium gluconate 200 mg tablet 05-17 00:00: 00 Yes [id number] 400mg Take 2 tablets by mouth 2 (two) times daily. [facility] gabapentin 300 mg capsule 05-17 00:00: 00 11-03 00:00 :00 No [id number] 300mg Take 1 capsule by mouth 3 (three) times daily. [facility] rizatriptan 5 mg disintegrat ing tablet 05-17 00:00: 00 11-03 00:00 :00 No [id number] 5mg Take 1 tablet by mouth as needed for Migraine (Take 5mg at the beginning of the headache can repeat 2h after if headaches persists). May repeat in 2 hours if needed [facility] magnesium gluconate 200 mg tablet 05-17 00:00: 00 11-03 00:00 :00 No [id number] 400mg Take 2 tablets by mouth 2 (two) times daily. [facility] artificial tears,hypro mellose, 0.5 % ophthalmic drops 05-17 00:00: 00 06-22 00:00 :00 No [id number] 1[drp] Place 1 Drop in left eye as needed for Dry eyes. [facility] Dose Unknown 05-16 00:00: [...] 00 Yes Robert F Viraj Dose Unknown 4 00:00: 00 Yes Robert F Viraj Dose Unknown 4 00:00: 00 Yes Robert F Viraj Dose Unknown 05-16 00:00: 00 Yes Robert F Viraj Dose Unknown 05-16 00:00: 00 Yes Robert F Viraj Dose Unknown 05-16 00:00: 00 Yes Robert F Viraj Dose Unknown 05-16 00:00: 00 Yes Robert F Viraj Dose Unknown 05-16 00:00: 00 Yes [facility] Cali Dose Unknown 05-16 00:00: 00 Yes Robert Cali clonazePAM 1 mg tablet 331 00:00: 00 08-09 00:00 :00 No [id number] Take no more than 1 mg twice daily as needed for anxiety [facility] lithium 600 mg capsule 3-30 00:00: 00 06-12 00:00 :00 No [id number] 600mg Take 1 capsule by mouth 2 (two) times daily. [facility] ondansetron (ZOFRAN ODT) 4 mg disintegrat ing tablet 09-02 00:00: 00 11-03 00:00 :00 No [id number] 4mg Take 1 tablet by mouth every 8 (eight) hours as needed for Nausea and Vomiting (N/V). [facility] butalbital- acetaminoph en-caff 50-325-40 mg tablet 09-02 00:00: 00 06-22 00:00 :00 No [id number] 1{tbl} Take 1 tablet by mouth every 6 (six) hours as needed for Pain (scale 7-10). [facility] Dose Unknown 07-14 00:00: 00 Yes Robert Cali Dose Unknown 07-14 00:00: 00 Yes Robert F Viraj Dose Unknown 2021-0 6-02 00:00: 00 Yes Robert F Viraj [...] Yes Robert F Viraj Dose Unknown 2021-0 519 00:00: 00 Yes Robert F Viraj Dose Unknown 2021-0 28 00:00: 00 Yes Robert F Viraj Dose Unknown 1-0 428 00:00: 00 Yes Robert F Viraj Dose Unknown 2021-0 428 00:00: 00 Yes Robert Cali allopurinoL 100 [...] tablet in the evening. [facility] acetaminoph en 300 mg-codeine 30 mg tablet [...] a day by oral route. [facility] losartan 100 mg tablet Take 1 tablet every day by oral route. losartan 100 mg tablet Take 1 tablet every day by oral route. No 1 Q1D losartan 100 mg tablet Take 1 tablet every day by oral route. [facility] omeprazole 40 mg capsule,del ayed release Take 1 capsule every day by oral route. omeprazole 40 mg capsule,del ayed release Take 1 capsule every day by oral route. No 1capsul e(s) Q1D omeprazole 40 mg capsule,de layed release Take 1 capsule every day by oral route. [facility] propranolol propranolol No pr opranolo l [facility] rosuvastati n 10 mg tablet Take 1 tablet every day by oral route. rosuvastati n 10 mg tablet Take 1 tablet every day by oral route. No 1 Q1D rosuvastat in 10 mg tablet Take 1 tablet every day by oral route. [facility] Ubrelvy 100 mg tablet Take by oral route. Ubrelvy 100 mg tablet Take by oral route. No Ubrelvy 100 mg tablet Take by oral route. [facility] progesteron e micronized 100 mg capsule Take 1 capsule every day by oral route for 30 days. progesteron e micronized 100 mg capsule Take 1 capsule every day by oral route for 30 days. No 1capsul e(s) Q1D progestero ne micronized 100 mg capsule Take 1 capsule every day by oral route for 30 days. [facility] clonazePAM clonazePAM No clonazePAM amLODIPine Besylate 5 MG amLODIPine Besylate 5 MG No amLODIPine Besylate 5 MG levETIRAcet am 500 MG levETIRAcet am 500 MG No 1{table t} BID levETIRAce obrien 500 MG acetaZOLAMI DE 250 MG acetaZOLAMI DE 250 MG No 1{table t_as_ne eded} BID acetaZOLAM CHELO 250 MG lamoTRIgine 100 MG lamoTRIgine 100 MG No lamoTRIgin e 100 MG Immunizations Ordered Immunization Name Filled Immunization Name Date Status Comments Source Influenza, injectable, MDCK, quadrivalent, preservative Influenza, injectable, MDCK, quadrivalent, preservative 2022-10-27 00:00:00 Completed [facility] Cali Influenza Virus Vaccine Quad .5 mL IM 6+ MO (FLUZONE/FLULAVAL/F LUARIX) 2020-11-13 00:00:00 Completed [facility] Influenza Virus Vaccine Quad .5 mL IM 6+ MO (FLUZONE/FLULAVAL/F LUARIX) 2020-11-13 00:00:00 Completed influenza, injectable influenza, injectable 2020-11-13 00:00:00 Completed Robert Cali TDAP 2020-09-11 00:00:00 Completed [facility] TDAP 2020-09-11 00:00:00 Completed [facility] Tdap Tdap 2020-09-11 00:00:00 Completed Robert Cali SARS-COV-2 COVID-19 VACCINE - (MODERNA) 2020-04-24 00:00:00 Completed [facility] SARS-COV-2 COVID-19 VACCINE - (MODERNA) 2020-04-24 00:00:00 Completed Moderna COVID-19 Vaccine Moderna COVID-19 Vaccine 2020-04-24 00:00:00 Completed [facility] Cali SARS-COV-2 COVID-19 VACCINE - (MODERNA) 2020-03-19 00:00:00 Completed [facility] SARS-COV-2 COVID-19 VACCINE - (MODERNA) 2020-03-19 00:00:00 Completed Moderna COVID-19 Vaccine Moderna COVID-19 Vaccine 2020-03-19 00:00:00 Completed [facility] Cali TDAP Unknown Completed [facility] Influenza Virus Vaccine Quad .5 mL IM 6+ MO (FLUZONE/FLULAVAL/F LUARIX) Unknown Completed [facility] SARS-COV-2 COVID-19 VACCINE - (MODERNA) Unknown Completed [facility] TDAP Unknown Completed [facility] Influenza Virus Vaccine Quad .5 mL IM 6+ MO (FLUZONE/FLULAVAL/F LUARIX) Unknown Completed [facility] SARS-COV-2 COVID-19 VACCINE - (MODERNA) Unknown Completed [facility] TDAP Unknown Completed [facility] Influenza Virus Vaccine Quad .5 mL IM 6+ MO (FLUZONE/FLULAVAL/F LUARIX) Unknown Completed [facility] SARS-COV-2 COVID-19 VACCINE - (MODERNA) Unknown Completed [facility] TDAP Unknown Completed [facility] Influenza Virus Vaccine Quad .5 mL IM 6+ MO (FLUZONE/FLULAVAL/F LUARIX) Unknown Completed [facility] SARS-COV-2 COVID-19 VACCINE - (MODERNA) Unknown Completed [facility] TDAP Unknown Completed [facility] Influenza Virus Vaccine Quad .5 mL IM 6+ MO (FLUZONE/FLULAVAL/F LUARIX) Unknown Completed [facility] SARS-COV-2 COVID-19 VACCINE - (MODERNA) Unknown Completed [facility] TDAP Unknown Completed [facility] Influenza Virus Vaccine Quad .5 mL IM 6+ MO (FLUZONE/FLULAVAL/F LUARIX) Unknown Completed [facility] SARS-COV-2 COVID-19 VACCINE - (MODERNA) Unknown Completed [facility] TDAP Unknown Completed [facility] Influenza Virus Vaccine Quad .5 mL IM 6+ MO (FLUZONE/FLULAVAL/F LUARIX) Unknown Completed [facility] SARS-COV-2 COVID-19 VACCINE - (MODERNA) Unknown Completed [facility] TDAP Unknown Completed [facility] Influenza Virus Vaccine Quad .5 mL IM 6+ MO (FLUZONE/FLULAVAL/F LUARIX) Unknown Completed [facility] SARS-COV-2 COVID-19 VACCINE - (MODERNA) Unknown Completed [facility] TDAP Unknown Completed [facility] Influenza Virus Vaccine Quad .5 mL IM 6+ MO (FLUZONE/FLULAVAL/F LUARIX) Unknown Completed [facility] SARS-COV-2 COVID-19 VACCINE - (MODERNA) Unknown Completed [facility] TDAP Unknown Completed [facility] Influenza Virus Vaccine Quad .5 mL IM 6+ MO (FLUZONE/FLULAVAL/F LUARIX) Unknown Completed [facility] SARS-COV-2 COVID-19 VACCINE - (MODERNA) Unknown Completed [facility] TDAP Unknown Completed [facility] Influenza Virus Vaccine Quad .5 mL IM 6+ MO (FLUZONE/FLULAVAL/F LUARIX) Unknown Completed [facility] SARS-COV-2 COVID-19 VACCINE - (MODERNA) Unknown Completed [facility] TDAP Unknown Completed [facility] Influenza Virus Vaccine Quad .5 mL IM 6+ MO (FLUZONE/FLULAVAL/F LUARIX) Unknown Completed [facility] SARS-COV-2 COVID-19 VACCINE - (MODERNA) Unknown Completed [facility] TDAP Unknown Completed [facility] Influenza Virus Vaccine Quad .5 mL IM 6+ MO (FLUZONE/FLULAVAL/F LUARIX) Unknown Completed [facility] SARS-COV-2 COVID-19 VACCINE - (MODERNA) Unknown Completed [facility] TDAP Unknown Completed [facility] Influenza Virus Vaccine Quad .5 mL IM 6+ MO (FLUZONE/FLULAVAL/F LUARIX) Unknown Completed [facility] SARS-COV-2 COVID-19 VACCINE - (MODERNA) Unknown Completed [facility] TDAP Unknown Completed [facility] Influenza Virus Vaccine Quad .5 mL IM 6+ MO (FLUZONE/FLULAVAL/F LUARIX) Unknown Completed [facility] SARS-COV-2 COVID-19 VACCINE - (MODERNA) Unknown [facility] Com[facility] Influenza Virus Vaccine Quad .5 mL IM 6+ MO (FLUZONE/FLULAVAL/F LUARIX) Unknown Completed [facility] SARS-COV-2 COVID-19 VACCINE - (MODERNA) Unknown Completed [facility] TDAP Unknown Completed [facility] Influenza Virus Vaccine Quad .5 mL IM 6+ MO (FLUZONE/FLULAVAL/F LUARIX) Unknown Completed [facility] SARS-COV-2 COVID-19 VACCINE - (MODERNA) Unknown Com[facility] TDAP Unknown Completed [facility] Influenza Virus Vaccine Quad .5 mL IM 6+ MO (FLUZONE/FLULAVAL/F LUARIX) Unknown Completed [facility] SARS-COV-2 COVID-19 VACCINE - (MODERNA) Unknown Com[facility] TDAP Unknown Completed [facility] Influenza Virus Vaccine Quad .5 mL IM 6+ MO (FLUZONE/FLULAVAL/F LUARIX) Unknown Completed [facility] SARS-COV-2 COVID-19 VACCINE - (MODERNA) Unknown Com[facility] TDAP Unknown Completed [facility] Influenza Virus Vaccine Quad .5 mL IM 6+ MO (FLUZONE/FLULAVAL/F LUARIX) Unknown Completed [facility] SARS-COV-2 COVID-19 VACCINE - (MODERNA) Unknown Completed [facility] TDAP Unknown Completed [facility] Influenza Virus Vaccine Quad .5 mL IM 6+ MO (FLUZONE/FLULAVAL/F LUARIX) Unknown Completed [facility] SARS-COV-2 COVID-19 VACCINE - (MODERNA) Unknown Completed [facility] TDAP Unknown Completed [facility] Influenza Virus Vaccine Quad .5 mL IM 6+ MO (FLUZONE/FLULAVAL/F LUARIX) Unknown Completed [facility] TDAP Unknown Completed [facility] Influenza Virus Vaccine Quad .5 mL IM 6+ MO (FLUZONE/FLULAVAL/F LUARIX) Unknown Completed [facility] SARS-COV-2 COVID-19 VACCINE - (MODERNA) Unknown Completed [facility] TDAP Unknown Completed [facility] Influenza Virus Vaccine Quad .5 mL IM 6+ MO (FLUZONE/FLULAVAL/F LUARIX) Unknown Completed [facility] SARS-COV-2 COVID-19 VACCINE - (MODERNA) Unknown Completed [facility] SARS-COV-2 COVID-19 VACCINE - (MODERNA) Unknown Completed [facility] TDAP Unknown Completed [facility] Influenza Virus Vaccine Quad .5 mL IM 6+ MO (FLUZONE/FLULAVAL/F LUARIX) Unknown Completed [facility] SARS-COV-2 COVID-19 VACCINE - (MODERNA) Unknown Completed [facility] TDAP Unknown Completed [facility] Influenza Virus Vaccine Quad .5 mL IM 6+ MO (FLUZONE/FLULAVAL/F LUARIX) Unknown Completed [facility] SARS-COV-2 COVID-19 VACCINE - (MODERNA) Unknown Completed [facility] TDAP Unknown Completed [facility] Influenza Virus Vaccine Quad .5 mL IM 6+ MO (FLUZONE/FLULAVAL/F LUARIX) Unknown Completed [facility] SARS-COV-2 COVID-19 VACCINE - (MODERNA) Unknown Completed [facility] TDAP Unknown Completed [facility] Influenza Virus Vaccine Quad .5 mL IM 6+ MO (FLUZONE/FLULAVAL/F LUARIX) Unknown Completed [facility] SARS-COV-2 COVID-19 VACCINE - (MODERNA) Unknown Completed [facility] TDAP Unknown Completed [facility] Influenza Virus Vaccine Quad .5 mL IM 6+ MO (FLUZONE/FLULAVAL/F LUARIX) Unknown Completed [facility] SARS-COV-2 COVID-19 VACCINE - (MODERNA) Unknown Completed [facility] Vital Signs Vital Name Observation [...] [facility] Height 2024-01-23 00:00:00 66 [in_i] [facility] height 2023-11-27 15:30:00 66 [in_i] [facility] weight-kg 2023-11-27 15:30:00 97.52 kg [facility] bmi 2023-11-27 15:30:00 34.7 kg/m2 [facility] temperature 2023-11-27 15:30:00 97.6 [degF] [facility] respiratory rate 2023-11-27 15:30:00 16 /min [facility] heart rate 2023-11-27 15:30:00 85 /min [facility] blood pressure systolic 2023-11-27 15:30:00 164 mm[Hg] [facility] blood pressure diastolic 2023-11-27 15:30:00 87 mm[Hg] [facility] Sy[facility] 2023-07-26 14:17:00 177 mm[Hg] [facility] Diastolic blood pressure 2023-07-26 14:17:00 92 mm[Hg] [facility] Heart rate 2023-07-26 14:17:00 97 /min [facility] Body temperature 2023-07-26 14:17:00 36.39 Verna [facility] Respiratory rate 2023-07-26 14:17:00 18 /min [facility] Body height 2023-07-26 14:17:00 167.6 cm [facility] Body weight 2023-07-26 14:17:00 100.472 kg [facility] BMI 2023-07-26 14:17:00 35.75 kg/m2 [facility] Oxygen saturation in Arterial blood by Pulse oximetry 2023-07-26 14:17:00 97 /min [facility] Systolic blood pressure 2023-06-08 07:00:00 112 mm[Hg] [facility] Diastolic blood pressure 2023-06-08 07:00:00 62 mm[Hg] [facility] Heart rate 2023-06-08 07:00:00 72 /min [facility] Respiratory rate 2023-06-08 07:00:00 20 /min [facility] Oxygen saturation in Arterial blood by Pulse oximetry 2023-06-08 07:00:00 97 /min [facility] Body weight 2023-06-08 02:41:00 108.863 kg [facility] BMI 2023-06-08 02:41:00 38.74 kg/m2 [facility] Body temperature 2023-06-08 02:38:00 36.67 Verna [facility] Body height 2023-06-08 02:34:00 167.6 cm [facility] Systolic blood pressure 2023-02-15 15:53:00 132 mm[Hg] [facility] Diastolic blood pressure 2023-02-15 15:53:00 73 mm[Hg] [facility] Heart rate 2023-02-15 15:53:00 74 /min [facility] Body temperature 2023-02-15 15:53:00 36.44 Verna [facility] Respiratory rate 2023-02-15 15:53:00 16 /min [facility] Body height 2023-02-15 15:53:00 167.6 cm [facility] Body weight 2023-02-15 15:53:00 100.336 kg [facility] BMI 2023-02-15 15:53:00 35.70 kg/m2 [facility] Oxygen saturation in Arterial blood by Pulse oximetry 2023-02-15 15:53:00 100 /min [facility] Systolic blood pressure 2022-11-13 14:08:00 117 mm[Hg] [facility] Diastolic blood pressure 2022-11-13 14:08:00 70 mm[Hg] [facility] Heart rate 2022-11-13 14:08:00 64 /min [facility] Respiratory rate 2022-11-13 14:08:00 12 /min [facility] Oxygen saturation in Arterial blood by Pulse oximetry 2022-11-13 14:08:00 99 /min [facility] Body temperature 2022-11-13 13:38:00 36.39 Verna [facility] Body height 2022-11-13 12:15:00 167.6 cm [facility] Body weight 2022-11-13 12:15:00 95.21 kg [facility] BMI 2022-11-13 12:15:00 33.88 kg/m2 [facility] Systolic blood pressure 2022-11-13 12:15:00 142 mm[Hg] [facility] Diastolic blood pressure 2022-11-13 12:15:00 66 mm[Hg] [facility] Heart rate 2022-11-13 12:15:00 77 /min [facility] Body temperature 2022-11-13 12:15:00 36 Verna [facility] Respiratory rate 2022-11-13 12:15:00 21 /min [facility] Body height 2022-11-13 12:15:00 167.6 cm [facility] Body weight 2022-11-13 12:15:00 95.21 kg [facility] BMI 2022-11-13 12:15:00 33.88 kg/m2 [facility] Oxygen saturation in Arterial blood by Pulse oximetry 2022-11-13 12:15:00 95 /min [facility] Systolic blood pressure 2022-11-03 15:35:00 154 mm[Hg] [facility] Diastolic blood pressure 2022-11-03 15:35:00 86 mm[Hg] [facility] Heart rate 2022-11-03 15:35:00 86 /min [facility] Body temperature 2022-11-03 15:35:00 37 Verna [facility] Respiratory rate 2022-11-03 15:35:00 18 /min [facility] Body height 2022-11-03 15:35:00 167.6 cm [facility] Body weight 2022-11-03 15:35:00 97.523 kg [facility] BMI 2022-11-03 15:35:00 34.70 kg/m2 [facility] Oxygen saturation in Arterial blood by Pulse oximetry 2022-11-03 15:35:00 99 /min [facility] Systolic blood pressure 2022-10-19 12:35:00 159 mm[Hg] Provider Notified [facility] Diastolic blood pressure 2022-10-19 12:35:00 85 mm[Hg] Provider Notified [facility] Heart rate 2022-10-19 12:35:00 94 /min [facility] Body temperature 2022-10-19 12:33:00 36.78 Verna [facility] Respiratory rate 2022-10-19 12:33:00 16 /min [facility] Body height 2022-10-19 12:33:00 167.6 cm [facility] Body weight 2022-10-19 12:33:00 96.616 kg [facility] BMI 2022-10-19 12:33:00 34.38 kg/m2 [facility] Oxygen saturation in Arterial blood by Pulse oximetry 2022-10-19 12:33:00 98 /min [facility] BP Systolic 2024-01-30 13:49:00 169 mm[Hg] Robert [...] BP Diastolic 2023-12-05 13:56:00 92 mm[Hg] [facility] Clai Weight Measured 2023-12-05 13:56:00 218.60 pounds Robert [...] Systolic blood pressure 2023-09-03 14:41:00 131 mm[Hg] [facility] Diastolic blood pressure 2023-09-03 14:41:00 73 mm[Hg] [facility] Heart rate 2023-09-03 14:41:00 93 /min [facility] Respiratory rate 2023-09-03 14:38:00 20 /min [facility] Body height 2023-09-03 14:38:00 167.6 cm [facility] Body weight 2023-09-03 14:38:00 100.2 kg [facility] BMI 2023-09-03 14:38:00 35.65 kg/m2 [facility] Systolic blood pressure 2023-07-26 14:17:00 177 mm[Hg] [facility] Diastolic blood pressure 2023-07-26 14:17:00 92 mm[Hg] [facility] Heart rate 2023-07-26 14:17:00 97 /min [facility] Body temperature 2023-07-26 14:17:00 36.39 Verna [facility] Respiratory rate 2023-07-26 14:17:00 18 /min [facility] Body height 2023-07-26 14:17:00 167.6 cm [facility] Body weight 2023-07-26 14:17:00 100.472 kg [facility] BMI 2023-07-26 14:17:00 35.75 kg/m2 [facility] Oxygen saturation in Arterial blood by Pulse oximetry 2023-07-26 14:17:00 97 /min [facility] Systolic blood pressure 2023-06-08 07:00:00 112 mm[Hg] [facility] Diastolic blood pressure 2023-06-08 07:00:00 62 mm[Hg] [facility] Heart rate 2023-06-08 07:00:00 72 /min [facility] Respiratory rate 2023-06-08 07:00:00 20 /min [facility] Oxygen saturation in Arterial blood by Pulse oximetry 2023-06-08 07:00:00 97 /min [facility] Body weight 2023-06-08 02:41:00 108.863 kg [facility] BMI 2023-06-08 02:41:00 38.74 kg/m2 [facility] Body temperature 2023-06-08 02:38:00 36.67 Verna [facility] Body height 2023-06-08 02:34:00 167.6 cm [facility] BP Systolic 2023-05-22 08:18:00 134 [...] Systolic blood pressure 2023-02-15 15:53:00 132 mm[Hg] [facility] Diastolic blood pressure 2023-02-15 15:53:00 73 mm[Hg] [facility] Heart rate 2023-02-15 15:53:00 74 /min [facility] Body temperature 2023-02-15 15:53:00 36.44 Verna [facility] Respiratory rate 2023-02-15 15:53:00 16 /min [facility] Body height 2023-02-15 15:53:00 167.6 cm [facility] Body weight 2023-02-15 15:53:00 100.336 kg [facility] BMI 2023-02-15 15:53:00 35.70 kg/m2 [facility] Oxygen saturation in Arterial blood by Pulse oximetry 2023-02-15 15:53:00 100 /min [facility] Systolic blood pressure 2023-01-22 15:03:00 144 mm[Hg] [facility] Diastolic blood pressure 2023-01-22 15:03:00 83 mm[Hg] [facility] Heart rate 2023-01-22 15:03:00 97 /min [facility] Respiratory rate 2023-01-22 15:00:00 18 /min [facility] Body height 2023-01-22 15:00:00 167.6 cm [facility] Body weight 2023-01-22 15:00:00 95.2 kg [facility] BMI 2023-01-22 15:00:00 33.88 kg/m2 [facility] BP Systolic 2022-12-20 09:52:00 109 mm[Hg] Robert Cali BP Diastolic 2022-12-20 09:52:00 59 mm[Hg] [facility] Weight Measured 2022-12-20 09:52:00 217.00 pounds [facility] Cali Height Measured 2022-12-20 09:52:00 66.00 inches [facility] Body Temperature 2022-12-20 09:52:00 98.40 degrees Robert Cali Heart Rate 2022-12-20 09:52:00 66.00 /min [facility] Respiratory Rate 2022-12-20 09:52:00 Robert Cali Systolic blood pressure 2022-11-13 14:08:00 117 mm[Hg] [facility] Diastolic blood pressure 2022-11-13 14:08:00 70 mm[Hg] [facility] Heart rate 2022-11-13 14:08:00 64 /min [facility] Respiratory rate 2022-11-13 14:08:00 12 /min [facility] Oxygen saturation in Arterial blood by Pulse oximetry 2022-11-13 14:08:00 99 /min [facility] Body temperature 2022-11-13 13:38:00 36.39 Verna [facility] Body height 2022-11-13 12:15:00 167.6 cm [facility] Body weight 2022-11-13 12:15:00 95.21 kg [facility] BMI 2022-11-13 12:15:00 33.88 kg/m2 [facility] Systolic blood pressure 2022-11-03 15:35:00 154 mm[Hg] [facility] Diastolic blood pressure 2022-11-03 15:35:00 86 mm[Hg] [facility] Heart rate 2022-11-03 15:35:00 86 /min [facility] Body temperature 2022-11-03 15:35:00 37 Verna [facility] Respiratory rate 2022-11-03 15:35:00 18 /min [facility] Body height 2022-11-03 15:35:00 167.6 cm [facility] Body weight 2022-11-03 15:35:00 97.523 kg [facility] BMI 2022-11-03 15:35:00 34.70 kg/m2 [facility] Oxygen saturation in Arterial blood by Pulse oximetry 2022-11-03 15:35:00 99 /min [facility] BP Systolic 2022-10-12 10:06:00 140 mm[Hg] Robert Cali BP Diastolic 2022-10-12 10:06:00 78 mm[Hg] [facility] [place] Weight Measured 2022-10-12 10:06:00 212.20 pounds Robert Cali Height Measured 2022-10-12 10:06:00 66.00 inches Robert Cali Body Temperature 2022-10-12 10:06:00 97.40 degrees Robert Cali Heart Rate 2022-10-12 10:06:00 93.00 /min Robert Cali Respiratory Rate 2022-10-12 10:06:00 Robert Cali Systolic blood pressure 2022-10-04 14:26:00 149 mm[Hg] [facility] Diastolic blood pressure 2022-10-04 14:26:00 76 mm[Hg] [facility] Heart rate 2022-10-04 14:26:00 78 /min [facility] Respiratory rate 2022-10-04 14:21:00 18 /min [facility] Body height 2022-10-04 14:21:00 167.6 cm [facility] Body weight 2022-10-04 14:21:00 96.843 kg [facility] BMI 2022-10-04 14:21:00 34.46 kg/m2 [facility] Systolic blood pressure 2022-07-26 13:22:00 135 mm[Hg] [facility] Diastolic blood pressure 2022-07-26 13:22:00 78 mm[Hg] [facility] Heart rate 2022-07-26 13:22:00 85 /min [facility] Respiratory rate 2022-07-26 13:22:00 18 /min [facility] Body height 2022-07-26 13:22:00 167.6 cm [facility] Body weight 2022-07-26 13:22:00 97.523 kg [facility] BMI 2022-07-26 13:22:00 34.70 kg/m2 [facility] BP Systolic 2022-06-27 13:54:00 132 [...] Heart Rate 2022-05-23 11:20:00 87.00 /min Robert F Viraj Respiratory Rate 2022-05-23 11:20:00 Robert F Viraj BP Systolic 2022-05-11 13:46:00 142 mm[Hg] Robert Cali BP Diastolic 2022-05-11 13:46:00 60 mm[Hg] Robert aCli Weight Measured 2022-05-11 13:46:00 225.80 pounds Robert Cali Height Measured 2022-05-11 13:46:00 66.00 inches Robert Cali Body Temperature 2022-05-11 13:46:00 97.80 degrees Robert Cali Heart Rate 2022-05-11 13:46:00 92.00 /min Robert Cali Respiratory Rate 2022-05-11 13:46:00 25.00 /min Robert Cali Systolic blood pressure 2022-02-15 14:59:00 131 mm[Hg] [facility] Diastolic blood pressure 2022-02-15 14:59:00 70 mm[Hg] [facility] Heart rate 2022-02-15 14:59:00 81 /min [facility] Respiratory rate 2022-02-15 14:59:00 18 /min [facility] Body height 2022-02-15 14:59:00 167.6 cm [facility] Body weight 2022-02-15 14:59:00 102.967 kg [facility] BMI 2022-02-15 14:59:00 36.64 kg/m2 [facility] Respiratory rate 2022-01-11 17:11:00 18 /min [facility] Body height 2022-01-11 17:11:00 167.6 cm [facility] Body weight 2022-01-11 17:11:00 100.699 kg [facility] BMI 2022-01-11 17:11:00 35.83 kg/m2 [facility] Systolic blood pressure 2021-08-24 14:24:00 133 mm[Hg] [facility] Diastolic blood pressure 2021-08-24 14:24:00 73 mm[Hg] [facility] Heart rate 2021-08-24 14:24:00 69 /min [facility] Respiratory rate 2021-08-24 14:24:00 18 /min [facility] Body height 2021-08-24 14:24:00 167.6 cm [facility] Body weight 2021-08-24 14:24:00 100.245 kg [facility] BMI 2021-08-24 14:24:00 35.67 kg/m2 [facility] Oxygen saturation in Arterial blood by Pulse oximetry 2021-06-07 15:30:00 96 /min [facility] Body temperature 2021-06-07 14:20:30 37.44 Verna [facility] BP Systolic 2020-07-14 23:18:00 Robert Cali BP Diastolic 2020-07-14 23:18:00 Robert Cali Weight Measured 2020-07-14 23:18:00 Robert Cali Height Measured 2020-07-14 23:18:00 Robert Cali Body Temperature 2020-07-14 23:18:00 Robert Cali Heart Rate 2020-07-14 23:18:00 Robert Cali Respiratory Rate 2020-07-14 23:18:00 Robert Cali Procedures Procedure Date / Time Performed Performing Clinician Source US TRANSVAGINAL 2024-02-08 00:00:00 [facility] Medical MAMMO, screening, digital, bilateral 2024-01-23 00:00:00 [facility] Medical URINALYSIS 2023-06-08 03:45:00 Rhiannon Vizcarra [facility] URINE DRUG (IMMUNOASSAY) - COMPREHENSIVE DRUG SCREEN W/O REFLEX 2023-06-08 03:45:00 Marysol Pabon [facility] URINALYSIS 2023-06-08 03:45:00 Rhiannon Vizcarra [facility] URINE DRUG (IMMUNOASSAY) - COMPREHENSIVE DRUG SCREEN W/O REFLEX 2023-06-08 03:45:00 Marysol Pabon [facility] CT STROKE ANGIOGRAM HEAD 2023-06-08 02:56:58 Rhiannon Vizcarra [facility] CT STROKE ANGIOGRAM NECK 2023-06-08 02:56:58 Rhiannon Vizcarra [facility] HB ECG ROUTINE & RHYTHM STRIP 2023-06-08 02:53:51 Rhiannon Vizcarra [facility] CT STROKE HEAD WO CONTRAST 2023-06-08 02:48:28 Rhiannon Vizcarra [facility] TROPONIN I 2023-06-08 02:45:00 Rhiannon Vizcarra [facility] BASIC METABOLIC PANEL (NA, K , CL, CO2, GLUCOSE, BUN, CREATININE, CA) 2023-06-08 02:45:00 Rhiannon Vizcarra [facility] LITHIUM 2023-06-08 02:45:00 Marysol Pabon [facility] ETHANOL 2023-06-08 02:45:00 Marysol Pabon [facility] CBC WITHOUT DIFF 2023-06-08 02:45:00 Rhiannon Vizcarra [facility] PROTHROMBIN TIME / INR 2023-06-08 02:45:00 Rhiannon Vizcarra [facility] ACTIVATED PARTIAL THRMPLAS CIPRIANO 2023-05-15 6 02:45:00 Rhiannon Vizcarra [facility] EXTRA TUBE LAV 2023-06-08 02:45:00 Marysol Pabon [facility] PROTHROMBIN TIME / INR 2023-06-08 02:45:00 Rhiannon Vizcarra [facility] ACTIVATED PARTIAL THRMPLAS CIPRIANO 2023-05-15 6 02:45:00 Rhiannon Vizcarra [facility] CBC WITHOUT DIFF 2023-06-08 02:45:00 Rhiannon Vizcarra [facility] TROPONIN I 2023-06-08 02:45:00 Rhiannon Vizcarra [facility] BASIC METABOLIC PANEL (NA, K , CL, CO2, GLUCOSE, BUN, CREATININE, CA) 2023-06-08 02:45:00 Rhiannon Vizcarra [facility] ETHANOL 2023-06-08 02:45:00 Marysol Pabon [facility] LITHIUM 2023-06-08 02:45:00 Marysol Pabon [facility] EXTRA TUBE LAV 2023-06-08 02:45:00 Marysol Pabon [facility] POCT GLUCOSE(AGE >30DAYS) 2023-06-08 02:39:00 Rhiannon Vizcarra [facility] POCT GLUCOSE(AGE >30DAYS) 2023-06-08 02:39:00 Rhiannon Vizcarra [facility] IRON PANEL 2023-02-15 16:30:00 Elidia Cordero [facility] FERRITIN SERUM 2023-02-15 16:30:00 Elidia Cordero [facility] LITHIUM 2023-01-22 16:35:00 Rosalind Freed [facility] CONSENT/REFUSAL FOR DIAGNOSI S AND TREATMENT 2023-01-22 14:56:09 Doctor Unassigned, [place] [facility] CONSENT/REFUSAL FOR DIAGNOSI S AND TREATMENT 2023-01-22 14:56:09 Doctor Unassigned, [place] [facility] SURGICAL PATHOLOGY EXAM 2022-11-13 13:05:00 Bossman [facility] ESOPHAGOGASTRODUODENOSCOPY 2022-11-13 12:47:00 Bossman [facility] COLONOSCOPY 2022-11-13 12:47:00 Bossman [facility] ESOPHAGOGASTRODUODENOSCOPY 2022-11-13 12:47:00 Bossman [facility] COLONOSCOPY 2022-11-13 12:47:00 Bossman [facility] COLONOSCOPY (ENDO) 2022-11-13 12:28:53 [facility] COLONOSCOPY (ENDO) 2022-11-13 12:28:53 [facility] COLONOSCOPY (ENDO) 2022-11-13 12:28:53 Jae Holloway [facility] EGD (ENDO) 2022-11-13 12:19:29 Jae Holloway [facility] EGD (ENDO) 2022-11-13 12:19:29 Jae Holloway [facility] EGD (ENDO) 2022-11-13 12:19:29 Jae Holloway [facility] CONSENT/REFUSAL FOR DIAGNOSI S AND TREATMENT 2022-11-13 12:17:09 Doctor Unassigned, [place] [facility] CONSENT/REFUSAL FOR DIAGNOSI S AND TREATMENT 2022-11-13 12:17:09 Doctor Unassigned, [place] [facility] ASSIGNMENT OF BENEFITS 2022-11-13 11:59:03 Doctor Unassigned, [place] [facility] ASSIGNMENT OF BENEFITS 2022-11-13 11:59:03 Doctor Unassigned, [place] [facility] ENDOSCOPY PROCEDURE DOCUMENTATION 2022-02 0-02 05:01:00 Doctor Unassigned, [place] [facility] ENDOSCOPY PROCEDURE DOCUMENTATION 2022-02 0-02 05:01:00 Doctor Unassigned, [place] [facility] COMP. METABOLIC PANEL ([id number]) 2022-11-03 16:24:00 Dora Newman [facility] CBC WITH DIFF 2022-11-03 16:24:00 Dora Newman [facility] POCT TEST 2022-11-03 16:24:00 Dora Newman [facility] CBC WITH DIFF 2022-11-03 16:24:00 Dora Newman [facility] POCT TEST 2022-11-03 16:24:00 Dora Newman [facility] COMP. METABOLIC PANEL ([id number]) 2022-11-03 16:24:00 Dora Newman [facility] URINALYSIS 2022-11-03 16:18:00 Dora Newman [facility] URINALYSIS 2022-11-03 16:18:00 Dora Newman [facility] RAPID STREP SCREEN FOR GROUP A 2022-10-14 2 16:14:00 Dora Newman [facility] RAPID STREP SCREEN FOR GROUP A 2022-10-14 2 16:14:00 Dora Newman [facility] THROAT CULTURE 2022-11-03 16:14:00 Dora Newman [facility] CONSENT/REFUSAL FOR DIAGNOSI S AND TREATMENT 2022-11-03 15:27:05 Doctor Unassigned, [place] [facility] CONSENT/REFUSAL FOR DIAGNOSI S AND TREATMENT 2022-11-03 15:27:05 Doctor Unassigned, [place] [facility] EMERGENCY SERVICES AGREEMENT S AND AUTHORIZATIONS 2022-11-03 05:01:00 Doctor Unassigned, [place] [facility] HELICOBACTER PYLORI ANTIGEN, FECAL BY EIA 2022-10-19 13:44:00 Elidia Cordero [facility] HELICOBACTER PYLORI ANTIGEN, FECAL BY EIA 2022-10-19 13:44:00 Elidia Cordero [facility] FERRITIN SERUM 2022-10-19 13:35:00 VanessakarlElidia [facility] IRON PANEL 2022-10-19 13:35:00 SaschaElidia saavedra [facility] CELIAC SCREEN 2022-10-19 13:35:00 Elidia Cordero [facility] LAB ONLY CELIAC SCREEN IGA 2022-10-19 13:35:00 SaschaanakarlElidia [facility] IRON PANEL 2022-10-19 13:35:00 SaschaanakarlElidia [facility] CELIAC SCREEN 2022-10-19 13:35:00 SaschaElidia saavedra [facility] FERRITIN SERUM 2022-10-19 13:35:00 Elidia Cordero [facility] LAB ONLY CELIAC SCREEN IGA 2022-10-19 13:35:00 VanessakarlElidia [facility] DISCLOSURE AND CONSENT, MEDI JAVAD AND SURGICAL PROCEDURES 2022-10-19 05:01:00 Doctor Unassigned, [place] [facility] DISCLOSURE AND CONSENT, [facility] JAVAD AND SURGICAL PROCEDURES 2022-10-19 05:01:00 Doctor Unassigned, [place] [facility] REFERRAL- REQUEST/RESPONSE 2022-10-12 05:01:00 Doctor Unassigned, [place] [facility] REFERRAL- REQUEST/RESPONSE 2022-10-12 05:01:00 Doctor Unassigned, [place] [facility] THYROID STIMULATING HORMONE 2022-10-05 15:15[facility]. METABOLIC PANEL ([id number]) 2022-10-05 15:15:00 Abdiaziz [facility] LIPID PANEL ([id number])(TOTAL CHOLESTEROL, TRIGLYCERIDES, HDL) 2022-10-05 15:15:00 Rosalind Freed [facility] LITHIUM 2022-10-05 15:15:00 Sara Hester [facility] CBC WITH DIFF 2022-10-05 15:15:00 Abdiaziz [facility] GLYCOSYLATED HEMOGLOBIN (A1C) 2022-10-05 15:15:00 Abdiaziz [facility] CBC WITH DIFF 2022-10-05 15:15:00 Abdiaziz [facility] COMP. METABOLIC PANEL ([id number]) 2022-10-05 15:15:00 Abdiaziz [facility] GLYCOSYLATED HEMOGLOBIN (A1C) 2022-10-05 15:15:00 Abdiaziz [facility] LIPID PANEL ([id number])(TOTAL CHOLESTEROL, TRIGLYCERIDES, HDL) 2022-10-05 15:15:00 Abdiaziz [facility] THYROID STIMULATING HORMONE 2022-10-05 15:15:00 Abdiaziz [facility] LITHIUM 2022-10-05 15:15:00 Sara Hester [facility] ASSIGNMENT OF BENEFITS 2022-10-04 14:17:30 Doctor Unassigned, [place] [facility] ASSIGNMENT OF BENEFITS 2022-10-04 14:17:30 Doctor Unassigned, [place] [facility] LITHIUM 2022-07-26 14:49:00 Angela [facility] PATIENT FINANCIAL POLICY 2022-07-26 13:16:12 Doctor Unassigned, [place] [facility] PATIENT FINANCIAL POLICY 2022-07-26 13:16:12 Doctor Unassigned, [place] [facility] EXTERNAL PROVIDER RECORDS 2022-04-08 06:01:00 Doctor Unassigned, [place] [facility] EXTERNAL PROVIDER RECORDS 2022-04-08 06:01:00 Doctor Unassigned, [place] [facility] EXTERNAL PROVIDER RECORDS 2022-02-21 06:01:00 Doctor Unassigned, [place] [facility] EXTERNAL PROVIDER RECORDS 2022-02-21 06:01:00 Doctor Unassigned, [place] [facility] LITHIUM 2022-02-15 15:58:00 Chu Angela [facility] CONSENT/REFUSAL FOR DIAGNOSI S AND TREATMENT 2022-01-11 17:10:16 Doctor Unassigned, [place] [facility] CONSENT/REFUSAL FOR DIAGNOSI S AND TREATMENT 2022-01-11 17:10:16 Doctor Unassigned, [place] [facility] EXTERNAL PROVIDER RECORDS 2020-11-26 05:01:00 Doctor Unassigned, [place] [facility] Tubal Ligation 1999-02-12 00:00:00 [facility] ical Encounters Start Date/Time End Date/Time Encounter Type Admission Type Attending [facility] Facility Care Department Encounter ID Source 2024-02-21 16:09:00 Outpatient Jae Holloway [facility] [id number] [place] [facility] 2024-02-15 10:03:00 Outpatient Jae Holloway [facility] [id number] [place] [facility] 2023-12-14 15:51:00 Outpatient Jae Holloway [facility] [id number] [place] [facility] 2023-11-27 15:05:01 Outpatient Jae Holloway [facility] [id number] [place] [facility] 2020-12-13 10:09:54 Emergency [facility] [id number] [facility] 2020-12-11 04:02:45 Emergency [facility] [id number] [facility] 2024-02-20 00:00:00 2024-02-20 00:00:00 MARC Arteaga: [address], [place] [address] , Ph. Formerly [facility] - GC_GCBZW_La tariq Peraza* [id number] [facility] 2024-02-08 00:00:00 2024-02-08 00:00:00 Talisha Chan MD: [address], [place] [address] , Ph. Formerly [facility] - GC_GCBZW_Gi Peraza* [id number] [facility] 2024-01-30 14:39:39 2024-01-30 14:39:39 Outpatient SFA [facility] [id number] Robert Cali 2024-01-30 00:00:00 2024-01-30 00:00:00 Outpatient Visit SFA [id number] Robert Cali 2024-01-28 13:45:00 2024-01-28 13:45:00 Outpatient R [facility] [id number] [facility] 2024-01-25 00:00:00 2024-01-25 00:00:00 Travel 1.2.840.1 [id number] 3.104.2.7 .3.278784 .8 1.2.840.114 350.1.13.10 4.2.7.3.698 084.8 [id number] [facility] 2024-01-24 00:00:00 2024-01-24 00:00:00 Talisha Chan MD: [address], [facility] [address] [id number] , Ph. [facility] - GC_GCBZW_[facility]* [id number] [facility] 2024-01-23 00:00:00 2024-01-23 00:00:00 Talisha Chan MD: [address] [id number] , Ph. [facility] - GC_GCBZW_[facility]* [id number] [facility] 2024-01-22 09:30:00 2024-01-22 09:30:00 Outpatient R [facility] [id number] [facility] 2024-01-18 00:00:00 2024-01-18 00:00:00 Outpatient Visit [facility] [id number] Robert Cali 2024-01-13 00:00:00 2024-01-13 00:00:00 Travel 1.2.840.1 78323.1.1 3.104.2.7 .3.549249 .8 1.2.840.114 350.1.13.10 4.2.7.3.698 084.8 [id number] [facility] 2024-01-04 16:41:03 2024-01-04 16:41:03 Outpatient SFA S[facility] [id number] Robert Cali 2024-01-04 00:00:00 2024-01-04 00:00:00 Outpatient Visit S[facility] [id number] Robert Cali 2023-12-26 08:50:25 2023-12-26 08:50:25 Outpatient SFA SFA [id number] Robert Cali 2023-12-19 10:24:52 2023-12-19 10:24:52 Outpatient SFA SFA [id number] Robert Cali 2023-12-11 16:28:54 2023-12-11 16:28:54 Outpatient SFA SFA [id number] Robert Cali 2023-12-11 00:00:00 2023-12-11 00:00:00 Outpatient Visit SFA [id number] Robert Cali 2023-12-05 13:46:14 2023-12-05 13:46:14 Outpatient SFA SFA [id number] Robert Cali 2023-11-30 00:00:00 2023-11-30 00:00:00 (TEL) CLS CLS [id number] Genaro patel 2023-11-29 00:00:00 2023-11-29 00:00:00 (EMG) EMG CLS CLS [id number] [facility] 2023-11-29 00:00:00 2023-11-29 00:00:00 (EEG) EEG CLS CLS [id number] [facility] 2023-11-27 08:13:37 2023-11-27 08:13:37 Outpatient SFA SFA [id number] Robert Cali 2023-11-27 00:00:00 2023-11-27 00:00:00 Office Visit- Est Pt.- Level 4 CLS CLS [id number] [facility] 2023-11-27 00:00:00 2023-11-27 00:00:00 (TEL) CLS CLS [id number] [facility] 2023-11-27 00:00:00 2023-11-27 00:00:00 Outpatient Visit [facility] [id number] Robert Cali 2023-10-09 00:00:00 2023-11-10 18:22:03 Patient Secure Msg Doctor Unassigned, [place] 1.2.840.1 98117.1.1 3.104.2.7 .3.083561 .8 [id number] [facility] 2023-11-06 13:51:42 2023-11-06 13:51:42 Outpatient SFA [facility] [id number] Robert Cali 2023-10-02 00:00:00 2023-11-03 18:20:51 Patient Secure Msg Doctor Unassigned, [place] 1.2.840.1 59097.1.1 3.104.2.7 .3.256999 .8 [id number] [facility] 2023-09-28 00:00:00 2023-10-02 12:14:38 Patient Secure Msg Tavon Dumont 1.2.840.1 90177.1.1 3.104.2.7 .3.934435 .8 [id number] [facility] 2023-09-03 09:30:00 2023-09-03 11:20:53 Outpatient ALESHA AMBRIZ [facility] [id number] [facility] 2023-09-03 00:00:00 2023-09-03 00:00:00 Travel 1.2.840.1 12346.1.1 3.104.2.7 .3.192043 .8 1.2.840.114 350.1.13.10 4.2.7.3.698 084.8 [id number] [facility] 2023-08-31 00:00:00 2023-08-31 00:00:00 Travel 1.2.840.1 37853.1.1 3.104.2.7 .3.247761 .8 1.2.840.114 350.1.13.10 4.2.7.3.698 084.8 [id number] [facility] 2023-08-27 08:00:00 2023-08-27 08:00:00 Outpatient R ALESHA CROWE [facility] [id number] [facility] 2023-08-24 00:00:00 2023-08-24 00:00:00 Travel 1.2.840.1 68955.1.1 3.104.2.7 .3.596395 .8 1.2.840.114 350.1.13.10 4.2.7.3.698 084.8 [id number] [facility] 2023-08-08 00:00:00 2023-08-08 12:08:14 Case Management Elidia Crodero 1.2.840.1 27461.1.1 3.104.2.7 .3.708159 .8 [id number] [facility] 2023-07-02 00:00:00 2023-08-04 18:20:55 Patient Secure Msg Dominic Keita 1.2.840.1 22531.1.1 3.104.2.7 .3.343396 .8 [id number] [facility] 2023-08-03 00:00:00 2023-08-03 08:18:24 Telephone Elidia Cordero 1.2.840.1 11400.1.1 3.104.2.7 .3.623368 .8 [id number] [facility] 2023-07-30 00:00:00 2023-07-30 15:44:55 Telephone Elidia Cordero 1.2.840.1 77866.1.1 3.104.2.7 .3.189603 .8 [id number] [facility] 2023-07-26 09:30:00 2023-07-26 10:00:00 Office Visit Anjel Westbrookl Carlo Cordero Abdklarissakarl [facility] 1.2.840.1 73917.1.1 3.104.2.7 .3.718206 .8 [id number] [facility] 2023-07-26 09:30:00 2023-07-26 09:30:00 Outpatient JOSE TRAN [facility] [id number] [facility] 2023-07-26 00:00:00 2023-07-26 00:00:00 Travel 1.2.840.1 21562.1.1 3.104.2.7 .3.338329 .8 1.2.840.114 350.1.13.10 4.2.7.3.698 084.8 [id number] [facility] 2023-07-18 10:15:00 2023-07-18 10:15:00 Outpatient FARZANA UGALDE [facility] [id number] [facility] 2023-07-16 00:00:00 2023-07-16 00:00:00 Travel 1.2.840.1 18234.1.1 3.104.2.7 .3.266348 .8 1.2.840.114 350.1.13.10 4.2.7.3.698 084.8 [id number] [facility] 2023-07-02 00:00:00 2023-07-02 12:41:14 Telephone Elidia Cordero 1.2.840.1 45066.1.1 3.104.2.7 .3.327939 .8 [id number] [facility] 2023-06-13 00:00:00 2023-06-13 10:19:53 Letter (Out) 1.2.840.1 89754.1.1 3.104.2.7 .3.127295 .8 [id number] [facility] 2023-06-07 21:35:00 2023-06-08 02:20:00 Emergency X MARYSOL PABON, MARYSOL [facility] ERT [id number] [facility] 2023-06-07 21:35:00 2023-06-08 02:20:00 Emergency Marysol Pabon Vizcarra, Rhiannon T 1.2.840.1 70177.1.1 3.104.2.7 .3.824119 .8 [id number] [facility] 2023-06-07 00:00:00 2023-06-07 00:00:00 Travel 1.2.840.1 84036.1.1 3.104.2.7 .3.742277 .8 1.2.840.114 350.1.13.10 4.2.7.3.698 084.8 [id number] [facility] 2023-05-29 00:00:00 2023-06-04 10:54:35 Patient Secure Dominic Ly 1.2.840.1 56686.1.1 3.104.2.7 .3.356833 .8 [id number] [facility] 2023-05-28 08:45:00 2023-05-28 08:45:00 Outpatient R DAVIDSON SUTHERLAND [facility] [id number] [facility] 2023-05-25 00:00:00 2023-05-25 00:00:00 Travel 1.2.840.1 01265.1.1 3.104.2.7 .3.782101 .8 1.2.840.114 350.1.13.10 4.2.7.3.698 084.8 [id number] [facility] 2023-05-22 08:17:37 2023-05-22 08:17:37 Outpatient SFA [facility] [id number] Robert Cali 2023-05-11 00:00:00 2023-05-11 17:06:28 Telephone Elidia Cordero 1.2.840.1 23108.1.1 3.104.2.7 .3.803569 .8 [id number] [facility] 2023-05-09 00:00:00 2023-05-09 17:14:57 Patient Secure Msg Dominic Keita 1.2.840.1 23166.1.1 3.104.2.7 .3.022011 .8 [id number] [facility] 2023-05-08 10:00:00 2023-05-08 10:00:00 Outpatient EMILIA W[facility] [id number] [facility] 2023-03-28 00:00:00 2023-04-28 18:05:02 Patient Secure Msg Doctor Unassigned, [place] 1.2.840.1 20413.1.1 3.104.2.7 .3.953066 .8 [id number] [facility] 2023-04-18 08:00:00 2023-04-18 08:00:00 Outpatient FARZANA UGALDE [facility] [id number] [facility] 2023-04-17 00:00:00 2023-04-17 00:00:00 Travel 1.2.840.1 47854.1.1 3.104.2.7 .3.102763 .8 1.2.840.114 350.1.13.10 4.2.7.3.698 084.8 [id number] [facility] 2023-04-11 13:00:00 2023-04-11 13:00:00 Outpatient EMILIA [facility] [id number] [facility] 2023-04-11 13:00:00 2023-04-11 13:00:00 Outpatient R EMILIA SNOWDEN [facility] [id number] [facility] 2023-04-04 08:00:00 2023-04-04 08:00:00 Outpatient R [facility] [id number] [facility] 2023-04-02 00:00:00 2023-04-02 00:00:00 Travel 1.2.840.1 68919.1.1 3.104.2.7 .3.510737 .8 1.2.840.114 350.1.13.10 4.2.7.3.698 084.8 [id number] [facility] 2023-03-09 00:00:00 2023-03-09 00:00:00 Telephone Elidia Cordero 1.2.840.1 01441.1.1 3.104.2.7 .3.436657 .8 [id number] [facility] 2023-03-08 00:00:00 2023-03-08 00:00:00 Telephone Elidia Cordero 1.2.840.1 32107.1.1 3.104.2.7 .3.893692 .8 [id number] [facility] 2023-02-28 10:15:00 2023-02-28 10:15:00 Outpatient R SARA HESTER [facility] [id number] [facility] 2023-02-27 00:00:00 2023-02-27 00:00:00 Travel 1.2.840.1 96330.1.1 3.104.2.7 .3.174013 .8 1.2.840.114 350.1.13.10 4.2.7.3.698 084.8 [id number] [facility] 2023-02-15 10:30:00 2023-02-15 10:45:00 Opening Machine Cleaner Visit Jewel Cunha [facility] 1.2.840.1 44296.1.1 3.104.2.7 .3.580585 .8 [id number] [facility] 2023-02-15 09:30:00 2023-02-15 10:00:00 [facility] 1.2.840.1 98015.1.1 3.104.2.7 .3.448376 .8 [id number] [facility] 2023-02-15 09:30:00 2023-02-15 09:30:00 Outpatient R JEWEL CUNHA [facility] [id number] [facility] 2023-02-15 00:00:00 2023-02-15 00:00:00 Travel 1.2.840.1 33297.1.1 3.104.2.7 .3.481781 .8 1.2.840.114 350.1.13.10 4.2.7.3.698 084.8 [id number] [facility] 2023-01-23 13:00:00 2023-01-23 13:00:00 Outpatient R JENNY ARRIAGA [facility] [id number] [facility] 2023-01-22 10:15:00 2023-01-22 10:30:00 Opening Machine Cleaner Visit Dexter Dias [facility] 1.2.840.1 30028.1.1 3.104.2.7 .3.738256 .8 [id number] [facility] 2023-01-22 09:30:00 2023-01-22 10:07:50 Outpatient R DEXTER DIAS [facility] [id number] [facility] 2023-01-22 00:00:00 2023-01-22 00:00:00 Orders Only Doctor Unassigned, [place] 1.2.840.1 86010.1.1 3.104.2.7 .3.287250 .8 [id number] [facility] 2023-01-22 00:00:00 2023-01-22 00:00:00 Travel 1.2.840.1 23477.1.1 3.104.2.7 .3.155138 .8 1.2.840.114 350.1.13.10 4.2.7.3.698 084.8 [id number] [facility] 2023-01-15 00:00:00 2023-01-15 00:00:00 Telephone Elidia oCrdero 1.2.840.1 97257.1.1 3.104.2.7 .3.174023 .8 [id number] [facility] 2023-01-12 00:00:00 2023-01-12 00:00:00 Patient Secure Msg Dominic Keita 1.2.840.1 22418.1.1 3.104.2.7 .3.220716 .8 [id number] [facility] 2022-12-29 09:30:00 2022-12-29 09:30:00 Outpatient JENNY SESAY [facility] [id number] [facility] 2022-12-29 00:00:00 2022-12-29 00:00:00 Telephone Elidia Cordero 1.2.840.1 50877.1.1 3.104.2.7 .3.874673 .8 [id number] [facility] 2022-12-29 00:00:00 2022-12-29 00:00:00 Telephone Elidia Cordero 1.2.840.1 81938.1.1 3.104.2.7 .3.818151 .8 [id number] [facility] 2022-12-28 00:00:00 2022-12-28 00:00:00 Case Management Muftah, Abdullah Azzam 1.2.840.1 08639.1.1 3.104.2.7 .3.578311 .8 [id number] [facility] 2022-12-20 16:00:00 2022-12-20 16:46:31 Outpatient R [facility] [id number] [facility] 2022-12-20 09:49:08 2022-12-20 09:49:08 Outpatient [facility] [id number] Robert Cali 2022-12-19 00:00:00 2022-12-19 00:00:00 Travel 1.2.840.1 95749.1.1 3.104.2.7 .3.048525 .8 1.2.840.114 350.1.13.10 4.2.7.3.698 084.8 [id number] [facility] 2022-12-18 09:30:00 2022-12-18 09:30:00 Outpatient R [facility] [id number] [facility] 2022-12-18 00:00:00 2022-12-18 00:00:00 Telephone Elidia Cordero 1.2.840.1 69332.1.1 3.104.2.7 .3.737563 .8 [id number] [facility] 2022-12-14 00:00:00 2022-12-14 00:00:00 Patient Secure Msg Doctor Unassigned, [place] 1.2.840.1 69583.1.1 3.104.2.7 .3.634061 .8 [id number] [facility] 2022-12-11 08:45:00 2022-12-11 08:45:00 Outpatient R [facility] [id number] [facility] 2022-12-10 00:00:00 2022-12-10 00:00:00 Outpatient GC_GCBZW_Ka reyes_S [facility] [id number] [facility] 2022-12-08 15:30:00 2022-12-08 15:30:00 Outpatient JENNY SESAY [facility] [id number] [facility] 2022-12-06 08:00:00 2022-12-06 08:00:00 Outpatient ONEIDA GRANT [facility] [id number] [facility] 2022-11-29 00:00:00 2022-11-29 00:00:00 Telephone Sharona Corderoklarissakarl [place] 1.2.840.1 20560.1.1 3.104.2.7 .3.916442 .8 [id number] [facility] 2022-11-27 00:00:00 2022-11-27 00:00:00 Telephone Sharona Corderoklarissakarl Eagle[place] 1.2.840.1 90645.1.1 3.104.2.7 .3.278119 .8 [id number] [facility] 2022-11-27 00:00:00 2022-11-27 00:00:00 Telephone Sharona Corderoklarissakarl Eaglezam 1.2.840.1 83617.1.1 3.104.2.7 .3.529024 .8 [id number] [facility] 2022-11-23 00:00:00 2022-11-23 00:00:00 Telephone Sharona Corderoklarissakarl Eaglezam 1.2.840.1 53266.1.1 3.104.2.7 .3.010457 .8 [id number] [facility] 2022-11-23 00:00:00 2022-11-23 00:00:00 Telephone Sharona Corderoklarissakarl Eaglezam 1.2.840.1 45109.1.1 3.104.2.7 .3.872109 .8 [id number] [facility] 2022-11-22 09:30:00 2022-11-22 09:30:00 Outpatient R [facility] [id number] [facility] 2022-11-16 00:00:00 2022-11-16 00:00:00 Telephone Elidia Cordero 1.2.840.1 79499.1.1 3.104.2.7 .3.068076 .8 [id number] [facility] 2022-11-16 00:00:00 2022-11-16 00:00:00 Patient Secure Msg Bossman Dominic 1.2.840.1 39797.1.1 3.104.2.7 .3.049093 .8 [id number] [facility] 2022-11-13 06:59:00 2022-11-13 09:48:00 Outpatient R DOMINIC KEITA [facility] [id number] [facility] 2022-11-13 06:59:00 2022-11-13 09:48:00 Hospital Encounter Bossman Dominic 1.2.840.1 88569.1.1 3.104.2.7 .3.208860 .8 [id number] [facility] 2022-11-13 07:58:00 2022-11-13 08:33:00 Anesthesia Event Hunter Cruz Joan 1.2.840.1 80421.1.1 3.104.2.7 .3.516412 .8 [id number] [facility] 2022-11-13 07:15:00 2022-11-13 08:15:00 Surgery Dominic Keita 1.2.840.1 42514.1.1 3.104.2.7 .3.237899 .8 [id number] [facility] 2022-11-13 00:00:00 2022-11-13 00:00:00 Orders Only Doctor Unassigned, [place] 1.2.840.1 11577.1.1 3.104.2.7 .3.379517 .8 [id number] [facility] 2022-11-13 00:00:00 2022-11-13 00:00:00 Telephone Dominic Keita 1.2.840.1 18445.1.1 3.104.2.7 .3.366380 .8 [id number] [facility] 2022-11-13 00:00:00 2022-11-13 00:00:00 Travel 1.2.840.1 32502.1.1 3.104.2.7 .3.812318 .8 1.2.840.114 350.1.13.10 4.2.7.3.698 084.8 [id number] [facility] 2022-11-10 00:00:00 2022-11-10 00:00:00 Outpatient R RADIOLOGY [facility] [id number] [facility] 2022-11-10 00:00:00 2022-11-10 00:00:00 Patient Secure Msg Dominic Keita 1.2.840.1 89753.1.1 3.104.2.7 .3.221666 .8 [id number] [facility] 2022-11-09 00:00:00 2022-11-09 00:00:00 Patient Secure Msg Doctor Unassigned, [place] 1.2.840.1 15679.1.1 3.104.2.7 .3.049578 .8 [id number] [facility] 2022-11-07 00:00:00 2022-11-07 00:00:00 Patient Secure Msg Doctor Unassigned, [place] 1.2.840.1 52909.1.1 3.104.2.7 .3.353269 .8 [id number] [facility] 2022-11-03 10:36:00 2022-11-03 13:16:00 Emergency X DORA NEWMAN [facility] [id number] [facility] 2022-11-03 10:36:00 2022-11-03 13:16:00 Emergency Dora Newman 1.2.840.1 27391.1.1 3.104.2.7 .3.654307 .8 [id number] [facility] 2022-11-03 00:00:00 2022-11-03 00:00:00 Travel 1.2.840.1 80943.1.1 3.104.2.7 .3.670318 .8 1.2.840.114 350.1.13.10 4.2.7.3.698 084.8 [id number] [facility] 2022-10-30 00:00:00 2022-10-30 00:00:00 Case Management Elidia Cordero 1.2.840.1 87777.1.1 3.104.2.7 .3.525955 .8 [id number] [facility] 2022-10-19 08:30:00 2022-10-19 08:45:00 Opening Machine Cleaner Visit Jewel Cunha [facility] 1.2.840.1 67306.1.1 3.104.2.7 .3.698978 .8 [id number] [facility] 2022-10-19 07:30:00 2022-10-19 08:15:30 Outpatient R JEWEL CUNHA [facility] [id number] [facility] 2022-10-19 07:30:00 2022-10-19 08:15:30 Office Visit Jewel Cunha Abdullah Azzam 1.2.840.1 36175.1.1 3.104.2.7 .3.714750 .8 [id number] [facility] 2022-10-19 00:00:00 2022-10-19 00:00:00 Orders Only Doctor Unassigned, [place] 1.2.840.1 74597.1.1 3.104.2.7 .3.564247 .8 [id number] [facility] 2022-10-18 00:00:00 2022-10-18 00:00:00 Travel 1.2.840.1 03273.1.1 3.104.2.7 .3.469218 .8 1.2.840.114 350.1.13.10 4.2.7.3.698 084.8 [id number] [facility] 2022-10-12 09:56:06 2022-10-12 09:56:06 Outpatient SFA [facility] [id number] Robert Cali 2022-10-12 00:00:00 2022-10-12 00:00:00 Orders Only Doctor Unassigned, [place] 1.2.840.1 51285.1.1 3.104.2.7 .3.100146 .8 [id number] [facility] 2022-10-05 10:15:00 2022-10-05 10:30:00 Opening Machine Cleaner Visit Kath Vences, [facility] 1.2.840.1 05505.1.1 3.104.2.7 .3.476975 .8 [id number] [facility] 2022-10-05 10:15:00 2022-10-05 10:15:00 Outpatient R KATH VENCES [facility] [id number] [facility] 2022-10-04 09:30:00 2022-10-04 10:30:11 Outpatient R DEXTER DIAS [facility] [id number] [facility] 2022-10-04 00:00:00 2022-10-04 00:00:00 Orders Only Doctor Unassigned, [place] 1.2.840.1 66964.1.1 3.104.2.7 .3.993775 .8 [id number] [facility] 2022-10-04 00:00:00 2022-10-04 00:00:00 Travel 1.2.840.1 18198.1.1 3.104.2.7 .3.599783 .8 1.2.840.114 350.1.13.10 4.2.7.3.698 084.8 [id number] [facility] 2022-10-02 00:00:00 2022-10-02 00:00:00 Travel 1.2.840.1 21671.1.1 3.104.2.7 .3.555930 .8 1.2.840.114 350.1.13.10 4.2.7.3.698 084.8 [id number] [facility] 2022-09-06 08:45:00 2022-09-06 08:45:00 Outpatient SARA DELGADILLO [facility] [id number] [facility] 2022-09-06 00:00:00 2022-09-06 00:00:00 Travel 1.2.840.1 58393.1.1 3.104.2.7 .3.555142 .8 1.2.840.114 350.1.13.10 4.2.7.3.698 084.8 [id number] [facility] 2022-07-26 11:00:00 2022-07-26 11:15:00 Opening Machine Cleaner Visit Pathology Pcp-Lab 1.2.840.1 66555.1.1 3.104.2.7 .3.259253 .8 [id number] [facility] 2022-07-26 08:45:00 2022-07-26 09:37:46 [facility] [id number] [facility] 2022-07-26 00:00:00 2022-07-26 00:00:00 Orders Only Doctor Unassigned, [place] 1.2.840.1 77993.1.1 3.104.2.7 .3.144800 .8 [id number] [facility] 2022-07-26 00:00:00 2022-07-26 00:00:00 Travel 1.2.840.1 68492.1.1 3.104.2.7 .3.580032 .8 1.2.840.114 350.1.13.10 4.2.7.3.698 084.8 [id number] [facility] 2022-07-24 13:24:12 2022-07-24 13:24:12 Outpatient SFA [facility] [id number] Robert Cali 2022-06-27 13:49:18 2022-06-27 13:49:18 Outpatient SFA [facility] [id number] 0516 Robert Cali 2022-06-21 08:52:50 2022-06-21 08:52:50 Outpatient SFA [facility] [id number] Robert Cali 2022-06-15 15:23:34 2022-06-15 15:23:34 Outpatient SFA [facility] [id number] Robert Cali 2022-05-31 08:45:00 2022-05-31 08:45:00 Outpatient SARA DELGADILLO [facility] [id number] [facility] 2022-05-30 11:55:27 2022-05-30 11:55:27 Outpatient SFA [facility] [id number] Robert Cali 2022-05-23 11:17:29 2022-05-23 11:17:29 Outpatient SFA [facility] [id number] Robert Cali 2022-05-12 08:06:11 2022-05-12 08:06:11 Outpatient SFA [facility] [id number] Robert Cali 2022-05-11 13:45:44 2022-05-11 13:45:44 Outpatient SFA [facility] [id number] Robert Cali 2022-04-08 00:00:00 2022-04-08 00:00:00 Orders Only Doctor Unassigned, [place] 1.2.840.1 92670.1.1 3.104.2.7 .3.842642 .8 [id number] [facility] 2022-02-21 00:00:00 2022-02-21 00:00:00 Orders Only Doctor Unassigned, [place] 1.2.840.1 58277.1.1 3.104.2.7 .3.482872 .8 [id number] [facility] 2022-02-15 13:30:00 2022-02-15 13:45:00 Opening Machine Cleaner Visit Pathology Pcp-Lab 1.2.840.1 17451.1.1 3.104.2.7 .3.012393 .8 [id number] [facility] 2022-02-15 08:45:00 2022-02-15 10:52:26 Outpatient R DEXTER DIAS [facility] [id number] [facility] 2022-02-15 00:00:00 2022-02-15 00:00:00 Travel 1.2.840.1 37282.1.1 3.104.2.7 .3.743261 .8 1.2.840.114 350.1.13.10 4.2.7.3.698 084.8 [id number] [facility] 2022-01-11 11:00:00 2022-01-11 12:39:46 Outpatient R SARA HESTER [facility] [id number] [facility] 2022-01-11 00:00:00 2022-01-11 00:00:00 Orders Only Doctor Unassigned, [place] 1.2.840.1 57919.1.1 3.104.2.7 .3.172011 .8 [id number] [facility] 2022-01-11 00:00:00 2022-01-11 00:00:00 Travel 1.2.840.1 78960.1.1 3.104.2.7 .3.242631 .8 1.2.840.114 350.1.13.10 4.2.7.3.698 084.8 [id number] [facility] 2021-11-24 09:30:00 2021-11-24 09:30:00 Outpatient R IGOR SAAVEDRA [facility] [id number] [facility] 2021-11-16 11:00:00 2021-11-16 11:00:00 Outpatient R SARA HESTER [facility] [id number] [facility] 2021-10-26 08:00:00 2021-10-26 08:00:00 Outpatient R DEXTER DIAS [facility] [id number] [facility] 2021-10-20 10:00:00 2021-10-20 10:00:00 [facility] [id number] [facility] 2021-10-03 14:30:00 2021-10-03 14:30:00 Outpatient R DAVIDSON SUTHERLAND [facility] [id number] [facility] 2021-09-21 09:30:00 2021-09-21 09:30:00 Outpatient R DEXTER DIAS [facility] [id number] [facility] 2021-08-24 09:30:00 2021-08-24 10:41:34 [facility] [id number] [facility] 2021-08-24 00:00:00 2021-08-24 00:00:00 Travel 1.2.840.1 24068.1.1 3.104.2.7 .3.779536 .8 1.2.840.114 350.1.13.10 4.2.7.3.698 084.8 [id number] [facility] 2021-07-25 09:00:00 2021-07-25 09:00:00 Outpatient R DEXTER DIAS [facility] [id number] [facility] 2021-06-22 11:15:2021-06-22 12:18:05 Outpatient R SARA HESTER [facility] [id number] [facility] 2021-06-22 11:15:00 2021-06-22 11:15:00 Outpatient R SARA HESTER [facility] [id number] [facility] 2021-06-22 00:00:00 2021-06-22 00:00:00 Travel 1.2.840.1 23524.1.1 3.104.2.7 .3.696631 .8 1.2840.114 350.1.13.10 4.2.7.3.698 084.8 [id number] [facility] 2021-06-20 11:15:00 2021-06-20 11:15:00 Out[facility] [id number] [facility] 2021-06-20 11:15:00 2021-06-20 11:15:00 Outpatient R DEXTER DIAS [facility] [id number] [facility] 2021-06-08 09:20:00 2021-06-08 09:20:00 Outpatient R HILARY MOORE STRAHIL [facility] [id number] [facility] 2021-06-08 00:00:00 2021-06-08 00:00:00 Patient Secure Igor William Rai [facility] 1.840.114 350.1.13.10 4.2.7.2.686 [id number] [facility] 2021-06-07 09:13:00 2021-06-07 10:50:00 Emergency X GIGI MONROY [facility] [id number] [facility] 2021-06-07 09:13:00 2021-06-07 10:50:00 Emergency Gigi Monroy [facility] 1.840.114 350.1.13.10 4.2.7.2.686 [id number] [facility] 2021-06-07 09:13:00 2021-06-07 10:50:00 Emergency Gigi Monroy 1.2.840.1 90537.1.1 3.104.2.7 .3.660963 .8 [id number] [facility] 2021-06-07 00:00:00 2021-06-07 00:00:00 Outpatient IGOR Castaneda RAI [facility] [id number] [facility] 2021-06-07 00:00:00 2021-06-07 00:00:00 Orders Only Doctor Unassigned, [place] [facility] 1.2.840.114 350.1.13.10 4.2.7.2.686 [id number] [facility] 2021-06-07 00:00:00 2021-06-07 00:00:00 Travel 1.2.840.1 67561.1.1 3.104.2.7 .3.127515 .8 1.2.840.114 350.1.13.10 4.2.7.3.698 084.8 [id number] [facility] 2021-06-07 00:00:00 2021-06-07 00:00:00 Orders Only Doctor Unassigned, [place] 1.2.840.1 49200.1.1 3.104.2.7 .3.797269 .8 [id number] [facility] 2021-06-03 00:00:00 2021-06-03 00:00:00 Travel 1.2.840.1 99484.1.1 3.104.2.7 .3.106255 .8 1.2.840.114 350.1.13.10 4.2.7.3.698 084.8 [id number] [facility] 2021-05-27 00:00:00 2021-05-27 00:00:00 Outpatient IGOR Castaneda [facility] [id number] [facility] 2021-05-27 00:00:00 2021-05-27 00:00:00 Outpatient IGOR Castaneda [facility] [id number] [facility] 2021-05-25 00:00:00 2021-05-25 00:00:00 Patient Secure Msg Doctor Unassigned, [place] [facility] 1.2.840.114 350.1.13.10 4.2.7.2.686 [id number] [facility] 2021-05-25 00:00:00 2021-05-25 00:00:00 Patient Secure Msg Doctor Unassigned, [place] 1.2.840.1 13019.1.1 3.104.2.7 .3.243786 .8 [id number] [facility] 2021-05-20 00:00:00 2021-05-20 00:00:00 Telephone Myla Martinezchynaenrique 1.2.840.1 52840.1.1 3.104.2.7 .3.588866 .8 [id number] [facility] 2021-05-20 00:00:00 2021-05-20 00:00:00 Telephone Zane Martinez 1.2.840.1 93565.1.1 3.104.2.7 .3.406115 .8 [id number] [facility] 2021-05-18 00:00:00 2021-05-18 00:00:00 Travel 1.2.840.1 48502.1.1 3.104.2.7 .3.544674 .8 1.2.840.114 350.1.13.10 4.2.7.3.698 084.8 [id number] [facility] 2021-05-18 00:00:00 2021-05-18 00:00:00 Travel 1.2.840.1 14447.1.1 3.104.2.7 .3.344534 .8 1.2.840.114 350.1.13.10 4.2.7.3.698 084.8 [id number] [facility] 2021-05-17 13:15:00 2021-05-17 13:30:00 Opening Machine Cleaner Visit Pcp-Lab Igor Saavedra [facility] 1.2.840.114 350.1.13.10 4.2.7.2.686 [id number] [facility] 2021-05-17 13:15:00 2021-05-17 13:30:00 Opening Machine Cleaner Visit Igor Saavedra [facility]-Lab 1.2.840.1 65808.1.1 3.104.2.7 .3.799236 .8 [id number] [facility] 2021-05-17 13:15:00 2021-05-17 13:30:00 Opening Machine Cleaner Visit Igor Saavedra P[facility]-Lab 1.2.840.1 11654.1.1 3.104.2.7 .3.702290 .8 [id number] [facility] 2021-05-17 09:00:00 2021-05-17 10:25:05 Outpatient R IGOR SAAVEDRA [facility] [id number] [facility] 2021-05-17 09:00:00 2021-05-17 10:25:05 Office Visit Igor Saavedra Neeharika 1.2.840.1 56900.1.1 3.104.2.7 .3.340808 .8 [id number] [facility] 2021-05-17 09:00:00 2021-05-17 10:25:05 Outpatient R IGOR SAAVEDRA [facility] [id number] [facility] 2021-05-17 09:30:00 2021-05-17 09:30:00 Outpatient R SAAVEDRA, IGOR [facility] [id number] [facility] 2021-05-17 00:00:00 2021-05-17 00:00:00 Travel 1.2.840.1 40756.1.1 3.104.2.7 .3.572554 .8 1.2.840.114 350.1.13.10 4.2.7.3.698 084.8 [id number] [facility] 2021-05-17 00:00:00 2021-05-17 00:00:00 Travel 1.2.840.1 01615.1.1 3.104.2.7 .3.621758 .8 1.2.840.114 350.1.13.10 4.2.7.3.698 084.8 [id number] [facility] 2021-04-26 09:00:00 2021-04-26 09:00:00 Outpatient R [facility] [id number] [facility] 2021-04-26 09:00:00 2021-04-26 09:00:00 Outpatient AVELINO NAGEL [facility] [id number] [facility] 2021-04-20 08:45:00 2021-04-20 08:45:00 Outpatient SARA DELGADILLO [facility] [id number] [facility] 2021-04-11 08:40:00 2021-04-11 08:40:00 Outpatient SALLY FIGUEROA HOWARD [facility] [id number] [facility] 2021-04-11 08:40:00 2021-04-11 08:40:00 Outpatient SALLY FIGUEROA [facility] [id number] [facility] 2021-03-21 08:00:00 2021-03-21 08:00:00 Outpatient SALLY FIGUEROA [facility] [id number] [facility] 2021-03-17 00:00:00 2021-03-17 00:00:00 Patient Secure Msg Doctor Unassigned, [place] [facility] 1.2.840.114 350.1.13.10 4.2.7.2.686 [id number] [facility] 2021-03-17 00:00:00 2021-03-17 00:00:00 Patient Secure Msg Doctor Unassigned, [place] 1.2.840.1 01532.1.1 3.104.2.7 .3.277360 .8 [id number] [facility] 2021-03-17 00:00:00 2021-03-17 00:00:00 Patient Secure Msg Doctor Unassigned, [place] 1.2.840.1 26599.1.1 3.104.2.7 .3.902998 .8 [id number] [facility] 2021-03-16 13:15:00 2021-03-16 13:30:00 Opening Machine Cleaner Visit Sal[facility]ador [facility] 1.2.840.1 86588.1.1 3.104.2.7 .3.848115 .8 [id number] [facility] 2021-03-16 13:15:00 2021-03-16 13:30:00 Opening Machine Cleaner Visit Sal[facility]ador [facility] 1.2.840.1 23763.1.1 3.104.2.7 .3.273720 .8 [id number] [facility] 2021-03-16 13:15:00 2021-03-16 13:15:00 Outpatient SALBADOR CRONIN [facility] [id number] [facility] 2021-03-16 12:00:00 2021-03-16 12:09:51 Outpatient SARA DELGADILLO [facility] [id number] [facility] 2021-03-16 12:00:00 2021-03-16 12:09:51 Outpatient R KACIE [facility] [id number] [facility] 2021-03-16 12:00:00 2021-03-16 12:00:00 Outpatient [facility] [id number] [facility] 2021-03-16 00:00:00 2021-03-16 00:00:00 Travel 1.2.840.1 58040.1.1 3.104.2.7 .3.692729 .8 1.2.840.114 350.1.13.10 4.2.7.3.698 084.8 [id number] [facility] 2021-03-16 00:00:00 2021-03-16 00:00:00 Travel 1.2.840.1 81348.1.1 3.104.2.7 .3.325104 .8 1.2.840.114 350.1.13.10 4.2.7.3.698 084.8 [id number] [facility] 2021-03-11 09:44:00 2021-03-11 13:06:00 Emergency X HALIMA [facility] [id number] [facility] 2021-03-11 09:44:00 2021-03-11 13:06:00 Emergency Halima Connor 1.2.840.1 62557.1.1 3.104.2.7 .3.371173 .8 [id number] [facility] 2021-03-11 09:44:00 2021-03-11 13:06:00 Emergency X HALIMA CONNOR [facility] [id number] [facility] 2021-03-11 09:44:00 2021-03-11 13:06:00 Emergency Halima Connor 1.2.840.1 70603.1.1 3.104.2.7 .3.757864 .8 [id number] [facility] 2021-03-11 09:44:00 2021-03-11 13:06:00 Emergency X HALIMA CONNOR [facility] [id number] [facility] 2021-03-11 09:44:00 2021-03-11 09:44:00 Emergency X HALIMA CONNOR [facility] [id number] [facility] 2021-03-11 00:00:00 2021-03-11 00:00:00 Travel 1.2.840.1 18486.1.1 3.104.2.7 .3.358288 .8 1.2.840.114 350.1.13.10 4.2.7.3.698 084.8 [id number] [facility] 2021-03-11 00:00:00 2021-03-11 00:00:00 Travel 1.2.840.1 88617.1.1 3.104.2.7 .3.851845 .8 1.2.840.114 350.1.13.10 4.2.7.3.698 084.8 [id number] [facility] 2021-03-08 15:00:00 2021-03-08 15:15:00 Opening Machine Cleaner Visit Salbador [facility] 1.2.840.1 88787.1.1 3.104.2.7 .3.683335 .8 [id number] [facility] 2021-03-08 15:00:00 2021-03-08 15:15:00 Opening Machine Cleaner Visit Sal[facility]ador [facility] 1.2.840.1 31543.1.1 3.104.2.7 .3.559109 .8 [id number] [facility] 2021-03-08 15:00:00 2021-03-08 15:00:00 Outpatient R SALBADOR LOCKWOOD [facility] [id number] [facility] 2021-01-31 10:15:00 2021-01-31 10:55:06 Outpatient R DEXTER DIAS [facility] [id number] [facility] 2020-12-29 08:00:00 2020-12-29 08:41:00 Outpatient R DEXTER DIAS [facility] [id number] [facility] 2020-12-29 08:00:00 2020-12-29 08:41:00 [facility] [id number] 2020-12-29 00:00:00 2020-12-29 00:00:00 Travel 1.2.840.1 53837.1.1 3.104.2.7 .3.030588 .8 1.2.840.114 350.1.13.10 4.2.7.3.698 084.8 [id number] [facility] 2020-12-29 00:00:00 2020-12-29 00:00:00 Travel 1.2.840.1 82752.1.1 3.104.2.7 .3.242580 .8 1.2.840.114 350.1.13.10 4.2.7.3.698 084.8 [id number] [facility] 2020-12-22 09:30:00 2020-12-22 09:30:00 Outpatient R DEXTER DIAS [facility] [id number] [facility] 2020-12-22 09:30:00 2020-12-22 09:30:00 Outpatient [facility] [id number] [facility] 2020-11-26 00:00:00 2020-11-26 00:00:00 Orders Only Doctor Unassigned, [place] [facility] 1.2.840.114 350.1.13.10 4.2.7.2.686 [id number] [facility] 2020-11-10 09:30:00 2020-11-10 09:30:00 Outpatient R ROBERT NOWAK [facility] [id number] [facility] 2020-11-10 00:00:00 2020-11-10 00:00:00 Orders Only Doctor Unassigned, [place] 1.2.840.1 70507.1.1 3.104.2.7 .3.901664 .8 [id number] [facility] 2020-11-10 00:00:00 2020-11-10 00:00:00 Travel 1.2.840.1 38341.1.1 3.104.2.7 .3.991877 .8 1.2.840.114 350.1.13.10 4.2.7.3.698 084.8 [id number] [facility] 2020-10-11 08:00:00 2020-10-11 08:00:00 Outpatient R [facility] [id number] [facility] 2020-10-11 00:00:00 2020-10-11 00:00:00 Travel 1.2.840.1 71420.1.1 3.104.2.7 .3.545678 .8 1.2.840.114 350.1.13.10 4.2.7.3.698 084.8 [id number] [facility] 2020-09-13 08:00:00 2020-09-13 08:00:00 Outpatient R [facility] [id number] [facility] 2020-09-13 00:00:00 2020-09-13 00:00:00 Travel 1.2.840.1 01056.1.1 3.104.2.7 .3.634208 .8 1.2.840.114 350.1.13.10 4.2.7.3.698 084.8 [id number] [facility] 2020-09-02 16:12:00 2020-09-02 20:21:00 Emergency Patti Rose [facility] 1.2.840.114 350.1.13.10 4.2.7.2.686 [id number] 2020-09-02 16:12:00 2020-09-02 20:21:00 Emergency Patti Rose 1.2.840.1 10093.1.1 3.104.2.7 .3.262483 .8 [id number] [facility] 2020-09-02 00:00:00 2020-09-02 00:00:00 Orders Only Doctor Unassigned, [place] [facility] [id number] 350.1.13.10 [id number] [id number] 2020-09-02 00:00:00 2020-09-02 00:00:00 Travel 1.2.840.1 [id number] 3.104.2.7 [id number] 1.2.840.114 350.1.13.10 4.2.7.3.698 [id number] [facility] 2020-09-02 00:00:00 2020-09-02 00:00:00 Orders Only Doctor Unassigned, [place] 1.2.840.1 [id number] [id number] [facility] 2020-08-25 09:15:00 2020-08-25 09:15:00 Outpatient R [facility] [id number] [facility] 2020-08-09 08:45:00 2020-08-09 08:45:00 Outpatient R DEXTER DIAS [facility] [id number] [facility] 2020-06-28 13:45:00 2020-06-28 13:45:00 Outpatient R SALBADOR LOCKWOOD [facility] [id number] [facility] 2020-06-21 15:15:00 2020-06-21 15:15:00 Outpatient R DEXTER DIAS [facility] [id number] [facility] 2020-06-07 08:45:00 2020-06-07 08:45:00 Outpatient R SELFDEXTER [facility] [id number] [facility] 2020-05-25 08:30:00 2020-05-25 08:30:00 Outpatient R CRISTO MARTINEZ [facility] [id number] [facility] 2020-03-15 13:00:00 2020-03-15 13:00:00 Outpatient R FABIÁN SALBADOR [facility] [id number] [facility] 2020-03-08 13:00:00 2020-03-08 13:00:00 Outpatient R SELF [facility] [id number] [facility] 2020-02-16 11:00:00 2020-02-16 11:00:00 [id number] 2020-01-27 11:45:00 2020-01-27 11:45:00 Outpatient R SELF [facility] [id number] [facility] 2020-01-19 08:00:00 2020-01-19 08:00:00 Outpatient R SELF [facility] [id number] [facility] 2019-12-22 08:45:00 2019-12-22 08:45:00 [facility] [id number] [facility] 2019-12-05 10:45:00 2019-12-05 10:45:00 Outpatient R JEWEL MORAES [facility] [id number] [facility] 2019-10-23 09:15:00 2019-10-23 09:15:00 Outpatient R KATH DELGADO [facility] [id number] [facility] 2019-10-15 11:30:00 2019-10-15 11:30:00 Outpatient ROBERT MURILLO [facility] [id number] [facility] 2019-10-01 14:30:00 2019-10-01 14:30:00 Outpatient ROBERT MURILLO [facility] [id number] [facility] 2019-09-01 08:45:00 2019-09-01 08:45:00 Outpatient DEXTER MIRELES [facility] [id number] [facility] 2019-08-06 13:00:00 2019-08-06 13:00:00 Outpatient ANGELA HERRERA [facility] [id number] [facility] Results Test Description Test Time Test Comments Results Result Co mments Source [facility] Pathology biopsy [id number] 00:00:00Clinical InformationPathologistA SourceA Gross DescriptionA DiagnosisA CommentPrivia Medicalurinalysis, [id number] 00:00:00* Test Item Value Reference Range Interpretation Comme nts WBC (test code = WBC) 6-10 0-5 A RBC (test code = RBC) 3-10 0-2 A epithelial cells (non renal) (test code = epithelial cells (non renal)) >10 0-10 A casts (test code = casts) None seen none seen bacteria (test code = bacteria) Many none seen/few A yeast (test code = yeast) Present none seen A [facility] MedicalBacteria identified in Urine by [id number] 00:00:00* Test Item Value Reference Range Interpretation Comme nts urine culture, routine (test code = urine culture, routine) Final report result 1 (test code = result 1) HEATHER BirminghamUA/M w/rflx culture, [id number] 00:00:00* Test Item Value Reference Range Interpretation Comme nts specific gravity (test code = specific gravity) 1.022 1.005-1.030 pH (test code = pH) 6.0 5.0-7.5 urine-color (test code = urine-color) Yellow yellow appearance (test code = appearance) Clear clear WBC esterase (test code = WB C esterase) 2+ negative A protein (test code = protein) Trace negative/trace glucose (test code = glucose) Negative negative ketones (test code = ketones) Negative negative occult blood (test code = oc cult blood) Trace negative A bilirubin (test code = bilirubin) Negative negative urobilinogen,semi-qn (test c ode = urobilinogen,semi-qn) 0.2 mg/dL 0.2-1.0 nitrite, urine (test code = nitrite, urine) Negative negative microscopic examination (aram t code = microscopic examination) See below: urinalysis reflex (test code = urinalysis reflex) FLEX [facility] Medicalpregnancy test, [id number] 15:14:21* Test Item Value Reference Range Interpretation Comme nts HCG (test code = HCG) negative [facility] MedicalFollitropin [Units/volume] in Serum or [id number] 00:00:00* Test Item Value Reference Range Interpretation Comme nts FSH (test code = FSH) 3.9 mIU/mL [facility] MedicalChlamydia trachomatis and Neisseria gonorrhoeae rRNA panel - Specimen by KELI with probe [id number] 00:00:00* Test Item Value Reference Range Interpretation Comme nts aptima combo 2 swab (CT) (te st code = aptima combo 2 swab (CT)) CT NEG negative aptima combo 2 swab (GC) (te st code = aptima combo 2 swab (GC)) GC NEG negative [facility] MedicalThyrotropin [Units/volume] in Serum or [id number] 00:00:00* Test Item Value Reference Range Interpretation Comme nts TSH (test code = TSH) 1.100 uIU/mL 0.500-4.530 [facility] MedicalEstradiol (E2) [Mass/volume] in Serum or [id number] 00:00:00 * Test Item Value Reference Range Interpretation Comme nts estradiol (test code = estradiol) 81.3 pg/mL 6.1-91.9 [facility] Medicalurinalysis, [id number] 08:44:12* Test Item Value Reference Range Interpretation Comme nts Leukocytes (test code = Leukocytes) 1+ Nitrite (test code = Nitrite) negative Urobilinogen (test code = Urobilinogen) Normal Protein (test code = Protein) Negative pH (test code = pH) 6.0 Blood (test code = Blood) Non-Hemolyzed: Moderate Specific Smyer (test code = Specific Smyer) 1.020 Ketone (test code = Ketone) Negative Bilirubin (test code = Bilirubin) Negative Glucose (test code = Glucose) Negative Appearance (test code = Appearance) Slightly Cloudy Color (test code = Color) Yellow [facility] MedicalANA (ANTI-NUCLEAR AB) WITH REFLEX [id number] 00:00:00* Test Item Value Reference Range Interpretation Comme nts ANTI-NUCLEAR ANTIBODIES (aram t code = 3506) NEGATIVE YAZMIN PATTERN (REPORTED TITER) (test code = 07600) SEE BELOW HOMOGENEOUS (test code = 85938) NEGATIVE TITER SPECKLED (test code = 860764) NEGATIVE TITER DENSE FINE SPECKLED (test co de = 34448) NEGATIVE TITER CENTROMERE (test code = 319417) NEGATIVE TITER COARSE SPECKLED (test code = 646480) NEGATIVE TITER DISCRETE NUCLEAR DOTS (test code = 924687) NEGATIVE TITER NUCLEOLAR (test code = 993173) NEGATIVE TITER NUCLEAR MEMBRANE (test code = 168871) NEGATIVE TITER CYTO. RETICULAR (SANDY) (test code = 776578) NEGATIVE COMMENTS (test code = 086554) NONE METHOD (test code = 60392) (NOTE) Robert CaliCOMPLEMENT, TOTAL [id number] 00:00:00* Test Item Value Reference Range Interpretation Comme evelia COMPLEMENT, TOTAL HEM (test code = 3508) 61 U/mL Robert CalidsDNA [id number] 00:00:00* Test Item Value Reference Range Interpretation Comme nts dsDNA ANTIBODY (test code = 4287) <1.0 IU/ML Robert CaliC-REACTIVE [id number] 00:00:00* Test Item Value Reference Range Interpretation Comme nts C-REACTIVE PROTEIN (test cod e = 3513) 0.6 MG/DL Robert CaliSEDIMENTATION [id number] 00:00:00* Test Item Value Reference Range Interpretation Comme nts SEDIMENTATION RATE (test cod e = 1017) 5 MM/HOUR Robert CaliRHEUMATOID FACTOR, [id number] 00:00:00* Test Item Value Reference Range Interpretation Comme evelia RHEUMATOID FACTOR, QUANT (te st code = 3502) <10 IU/ML Robert CaliRETICULOCYTE [id number] 00:00:00* Test Item Value Reference Range Interpretation Comme nts RETICULOCYTE HEMOGLOBIN (aram t code = 10266) 26.3 PG oRbert CaliCBC W/AUTO [id number] 00:00:00* Test Item Value Reference Range Interpretation [...] ABS NUCLEATED RBCS (test cod e = 90025) 0.00 K/UL Robert Ambrose [facility] W/AUTO [id number] 00:00:00* Test Item Value Reference Range Interpretation [...] ABS NUCLEATED RBCS (test cod e = 31041) 0.00 K/UL [facility] Ambrose [facility] [id number] 00:00:00* Test Item Value Reference Range Interpretation [...] ABS NUCLEATED RBCS (test cod e = 83130) 0.00 K/UL Robert Ambrose [id number] 05:10:38* Test Item Value Reference Range Interpretation Comme nts FERRITIN (test code = 2075) 69 NG/ML 13-200 CBC W/AUTO DIFF WITH [id number] 02:22:56* Test Item Value Reference Range Interpretation [...] 0.00-0.10 ABS NUCLEATED RBCS (test code = 65465) 0.00 K/UL 0.00-0.11 UNLESS OTHER SPARROW INDICATED, ALL TESTING PERFORMED AT [facility] [address] [place] [address] ROTO ROOTER OPERATOR: CHARLA HERNANDEZ M.D. [place] NUMBER [id number] [facility] [place]. [id number] 00:00:00* Test Item Value Reference Range Interpretation Comme nts FERRITIN (test code = 2075) 69 NG/ML Robert CaliCBC W/AUTO [id number] 00:00:00* Test Item Value Reference Range Interpretation [...] ABS NUCLEATED RBCS (test cod e = 63080) 0.00 K/UL Robert [id number] 00:00:00* Test Item Value Reference Range Interpretation Comme nts FERRITIN (test code = 2075) 69 NG/ML Robert Ambrose AustinCBC W/AUTO [id number] 00:00:00* Test Item Value Reference Range Interpretation [...] ABS NUCLEATED RBCS (test cod e = 94715) 0.00 K/UL Robert Ambrose [id number] 00:00:00* Test Item Value Reference Range Interpretation Comme nts FERRITIN (test code = 2075) 69 NG/ML Robert Ambrose AustinCBC W/AUTO [id number] 00:00:00* Test Item Value Reference Range Interpretation [...] ABS NUCLEATED RBCS (test cod e = 41551) 0.00 K/UL Robert Bailon (ANTI-NUCLEAR AB) WITH REFLEX [id number] 06:46:04* Test Item Value Reference Range Interpretation Comme nts ANTI-NUCLEAR ANTIBODIES (test code = 3506) NEGATIVE NEGATIVE Methodology is I ndirect Immunofluorescent Assay (IFA) with a titering system using Tov5451 cells (Hep2 cells transfected with SS-A/Ro). YAZMIN PATTERN (REPORTED TITER) (test code = 19196) SEE BELOW HOMOGENEOUS (test code = 36500) NEGATIVE TITER NEGATIVE SPECKLED (test code = 863298) NEGATIVE TITER NEGATIVE DENSE FINE SPECKLED (test code = 29039) NEGATIVE TITER NEGATIVE CENTROMERE (test code = 591473) NEGATIVE TITER NEGATIVE COARSE SPECKLED (test code = 366310) NEGATIVE TITER NEGATIVE DISCRETE NUCLEAR DOTS (test code = 642337) NEGATIVE TITER NEGATIVE NUCLEOLAR (test code = 881638) NEGATIVE TITER NEGATIVE NUCLEAR MEMBRANE (test code = 513030) NEGATIVE TITER NEGATIVE CYTO. RETICULAR (SANDY) (test code = 102779) NEGATIVE NEGATIVE COMMENTS (test code = 639019) NONE METHOD (test code = 25374) (NOTE) TESTING PERFORME D BY [employer] IFA PLATFORM.THE METHOD INCLUDES A SCREEN THRESHOLD OF 1:80, DIGITIZED AND COMPUTER ALGORITHM-ASSISTED INTERPRETATION OF TITERS AND DIGITAL PATTERNS, AND HEp-2 CELL LINE SUBSTRATE. ADDITIONAL UNUSUAL PATTERNS WILL BE GIVEN COMMENTS.FOR MORE INFORMATION, SEE [email or web address] UNLESS OTHERWISE INDICATED, ALL TESTING PERFORMED AT [facility] [address] [place] [address] ROTO ROOTER OPERATOR: CHARLA HERNANDEZ M.D. [place] NUMBER [id number] [facility] [place]. [id number] NOTE:2023-12-07 06:05:36* Test Item Value Reference Range Interpretation Comme nts NOTE: (test code = 998) (NOTE) IN ACCORDANCE [facility] FEDERAL GUIDELINES REQUIRING ALL VERBAL REQUESTS FOR LABORATORY TESTS TO BE ACCOMPANIED BY WRITTEN AUTHORIZATION WITHIN 30 DAYS OF THIS REQUEST, PLEASE SIGN BELOW AND RETURN A COPY OF THIS REPORT BY FAX TO THE LABORATORY SCANNING DEPARTMENT AT [phone]. PHYSICIAN'S SIGNATURE DATE NOTE: [ADDED]2023-12-07 00:00:00* Test Item Value Reference Range Interpretation Comme nts NOTE: (test code = 998) (NOTE) Robert Ambrose Adamaris (ANTI-NUCLEAR AB) WITH REFLEX TITER [ADDED]2023-12-07 00:00:00* Test Item Value Reference Range Interpretation Comme nts ANTI-NUCLEAR ANTIBODIES (aram t code = 3506) NEGATIVE YAZMIN PATTERN (REPORTED TITER) (test code = 38467) SEE BELOW HOMOGENEOUS (test code = 43085) NEGATIVE TITER SPECKLED (test code = 586998) NEGATIVE TITER DENSE FINE SPECKLED (test co de = 50017) NEGATIVE TITER CENTROMERE (test code = 241522) NEGATIVE TITER COARSE SPECKLED (test code = 502016) NEGATIVE TITER DISCRETE NUCLEAR DOTS (test code = 852105) NEGATIVE TITER NUCLEOLAR (test code = 696344) NEGATIVE TITER NUCLEAR MEMBRANE (test code = 626319) NEGATIVE TITER CYTO. RETICULAR (SANDY) (test code = 501453) NEGATIVE COMMENTS (test code = 971083) NONE METHOD (test code = 10764) (NOTE) Robert CaliNOTE: [ADDED]2023-12-07 00:00:00* Test Item Value Reference Range Interpretation Comme nts NOTE: (test code = 998) (NOTE) Robert Bailon (ANTI-NUCLEAR AB) WITH REFLEX TITER [ADDED]2023-12-07 00:00:00* Test Item Value Reference Range Interpretation Comme nts ANTI-NUCLEAR ANTIBODIES (aram t code = 3506) NEGATIVE YAZMIN PATTERN (REPORTED TITER) (test code = 74959) SEE BELOW HOMOGENEOUS (test code = 03318) NEGATIVE TITER SPECKLED (test code = 027105) NEGATIVE TITER DENSE FINE SPECKLED (test co de = 38585) NEGATIVE TITER CENTROMERE (test code = 136440) NEGATIVE TITER COARSE SPECKLED (test code = 052702) NEGATIVE TITER DISCRETE NUCLEAR DOTS (test code = 156453) NEGATIVE TITER NUCLEOLAR (test code = 422424) NEGATIVE TITER NUCLEAR MEMBRANE (test code = 241871) NEGATIVE TITER CYTO. RETICULAR (SANDY) (test code = 811127) NEGATIVE COMMENTS (test code = 462870) NONE METHOD (test code = 48998) (NOTE) Robert CaliNOTE: [ADDED]2023-12-07 00:00:00* Test Item Value Reference Range Interpretation Comme nts NOTE: (test code = 998) (NOTE) Robert Bailon (ANTI-NUCLEAR AB) WITH REFLEX TITER [ADDED]2023-12-07 00:00:00* Test Item Value Reference Range Interpretation Comme nts ANTI-NUCLEAR ANTIBODIES (aram t code = 3506) NEGATIVE YAZMIN PATTERN (REPORTED TITER) (test code = 25163) SEE BELOW HOMOGENEOUS (test code = 82313) NEGATIVE TITER SPECKLED (test code = 642131) NEGATIVE TITER DENSE FINE SPECKLED (test co de = 24512) NEGATIVE TITER CENTROMERE (test code = 737848) NEGATIVE TITER COARSE SPECKLED (test code = 137996) NEGATIVE TITER DISCRETE NUCLEAR DOTS (test code = 486349) NEGATIVE TITER NUCLEOLAR (test code = 062084) NEGATIVE TITER NUCLEAR MEMBRANE (test code = 918420) NEGATIVE TITER CYTO. RETICULAR (SANDY) (test code = 133300) NEGATIVE COMMENTS (test code = 110825) NONE METHOD (test code = 43771) (NOTE) Robert CaliNOTE: [ADDED]2023-12-07 00:00:00* Test Item Value Reference Range Interpretation Comme nts NOTE: (test code = 998) (NOTE) Robert Bailon (ANTI-NUCLEAR AB) WITH REFLEX TITER [ADDED]2023-12-07 00:00:00* Test Item Value Reference Range Interpretation Comme nts ANTI-NUCLEAR ANTIBODIES (aram t code = 3506) NEGATIVE YAZMIN PATTERN (REPORTED TITER) (test code = 94245) SEE BELOW HOMOGENEOUS (test code = 55592) NEGATIVE TITER SPECKLED (test code = 817597) NEGATIVE TITER DENSE FINE SPECKLED (test co de = 99473) NEGATIVE TITER CENTROMERE (test code = 888079) NEGATIVE TITER COARSE SPECKLED (test code = 218231) NEGATIVE TITER DISCRETE NUCLEAR DOTS (test code = 690944) NEGATIVE TITER NUCLEOLAR (test code = 754105) NEGATIVE TITER NUCLEAR MEMBRANE (test code = 192462) NEGATIVE TITER CYTO. RETICULAR (SNADY) (test code = 676618) NEGATIVE COMMENTS (test code = 718524) NONE METHOD (test code = 46006) (NOTE) Robert CaliPROTEIN ELECTROPHORESIS, [id number] 14:58:50* Test Item Value Reference Range Interpretation [...] HUSSEIN M.D. VITAMIN B 12 AND FOLIC [id number] 05:31:25* Test Item Value Reference Range Interpretation Comme [facility] VITAMIN B-12 (test code = 2840) [...] . . . UG/L >=6.0 COMPREHENSIVE METABOLIC [id number] 04:03:47* Test Item Value Reference Range Interpretation Comme [facility] GLUCOSE (test code = 2217) 95 MG/DL 70-99 BUN (test code = 2208) 13 MG/DL 6-20 CREATININE (test code = 2214) 0.65 MG/DL 0.60-1.30 eGFR (2020 CKD-EPI) (test code = 64511) 110 ML/MIN/1.73 >60 CALC BUN/CREAT (test code = 2235) 20 RATIO 6-28 SODIUM (test code = 2231) 139 MEQ/L 133-146 POTASSIUM (test code = 2228) 4.6 MEQ/L 3.5-5.4 CHLORIDE (test code = 2215) 103 MEQ/L 95-107 CARBON DIOXIDE (test code = 2206) 25 MEQ/L 19-31 CALCIUM (test code = 2209) 10.1 MG/DL 8.5-10.5 PROTEIN, TOTAL (test code = 2229) 6.7 G/DL 6.1-8.3 ALBUMIN (test code = 2201) 4.5 G/DL 3.5-5.2 CALC GLOBULIN (test code = 2240) 2.2 G/DL 1.9-3.7 CALC A/G RATIO (test code = 2234) 2.0 RATIO 1.0-2.6 BILIRUBIN, TOTAL (test code = 2207) <0.2 MG/DL <=1.2 ALKALINE PHOSPHATASE (test code = 220) 144 U/L 40-118 H AST (test code = 2218) 16 U/L 9-40 ALT (test code = 2219) 16 U/L 5-40 UNLESS OTHERWISE INDICATED, ALL TESTING PERFORMED AT [facility] [address] [place] [address] ROTO ROOTER OPERATOR: CHARLA HERNANDEZ M.D. CLIA NUMBER [id number] [facility] [place]. [id number] CBC W/AUTO DIFF WITH [id number] 03:00:25* Test Item Value Reference Range Interpretation [...] = 1065) 0.0 /100 WBC'S See_Comment [Automated Privacy [employer]a ge] The system which generated this result [...] 0.00-0.10 ABS NUCLEATED RBCS (test code = 57682) 0.00 K/UL 0.00-0.11 VITAMIN B 12 AND FOLIC [id number] 00:00:00* Test Item Value Reference Range Interpretation Comme nts VITAMIN B-12 (test code = 2840) 380 PG/ML FOLIC ACID (test code = 2695) 7.0 UG/L Robert CaliPROTEIN ELECTROPHORESIS, [id number] 00:00:00* Test Item Value Reference Range Interpretation [...] code = 2568) (NOTE) Robert CaliCBC W/AUTO [id number] 00:00:00* Test Item Value Reference Range Interpretation [...] ABS NUCLEATED RBCS (test cod e = 30192) 0.00 K/UL Robert F AustinCOMPREHENSIVE METABOLIC [id number] 00:00:00* Test Item Value Reference Range Interpretation Comme nts GLUCOSE (test code = 2217) 95 MG/DL BUN (test code = 2208) 13 MG/DL CREATININE (test code = 2214) 0.65 MG/DL eGFR (2020 CKD-EPI) (test code = 21830) 110 ML/MIN/1.73 CALC BUN/CREAT (test code = [...] U/L Robert CaliVITAMIN B 12 AND FOLIC [id number] 00:00:00* Test Item Value Reference Range Interpretation Comme nts VITAMIN B-12 (test code = 2840) 380 PG/ML FOLIC ACID (test code = 2695) 7.0 UG/L Robert CaliPROTEIN ELECTROPHORESIS, [id number] 00:00:00* Test Item Value Reference Range Interpretation [...] code = 2568) (NOTE) Robert CaliCBC W/AUTO [id number] 00:00:00* Test Item Value Reference Range Interpretation [...] ABS NUCLEATED RBCS (test cod e = 84999) 0.00 K/UL Robert F VirajCOMPREHENSIVE METABOLIC [id number] 00:00:00* Test Item Value Reference Range Interpretation Comme nts GLUCOSE (test code = 2217) 95 MG/DL BUN (test code = 2208) 13 MG/DL CREATININE (test code = 2214) 0.65 MG/DL eGFR (2020 CKD-EPI) (test code = 12391) 110 ML/MIN/1.73 CALC BUN/CREAT (test code = [...] U/L Robert CaliVITAMIN B 12 AND FOLIC [id number] 00:00:00* Test Item Value Reference Range Interpretation Comme nts VITAMIN B-12 (test code = 2840) 380 PG/ML FOLIC ACID (test code = 2695) 7.0 UG/L Robert CaliPROTEIN ELECTROPHORESIS, [id number] 00:00:00* Test Item Value Reference Range Interpretation [...] code = 2568) (NOTE) Robert CaliCBC W/AUTO [id number] 00:00:00* Test Item Value Reference Range Interpretation [...] ABS NUCLEATED RBCS (test cod e = 87618) 0.00 K/UL Robert CaliCOMPREHENSIVE METABOLIC [id number] 00:00:00* Test Item Value Reference Range Interpretation Comme nts GLUCOSE (test code = 2217) 95 MG/DL BUN (test code = 2208) 13 MG/DL CREATININE (test code = 2214) 0.65 MG/DL eGFR (2020 CKD-EPI) (test code = 53646) 110 ML/MIN/1.73 CALC BUN/CREAT (test code = [...] U/L Robert CaliVITAMIN B 12 AND FOLIC [id number] 00:00:00* Test Item Value Reference Range Interpretation Comme nts VITAMIN B-12 (test code = 2840) 380 PG/ML FOLIC ACID (test code = 2695) 7.0 UG/L Robert Ambrose VirajPROTEIN ELECTROPHORESIS, [id number] 00:00:00* Test Item Value Reference Range Interpretation [...] SPEP: (test code = 2568) (NOTE) Robert Arnol VirajCBC W/AUTO [id number] 00:00:00* Test Item Value Reference Range Interpretation [...] ABS NUCLEATED RBCS (test cod e = 00923) 0.00 K/UL Robert CaliCOMPREHENSIVE METABOLIC [id number] 00:00:00* Test Item Value Reference Range Interpretation Comme nts GLUCOSE (test code = 2217) 95 MG/DL BUN (test code = 2208) 13 MG/DL CREATININE (test code = 2214) 0.65 MG/DL eGFR (2020 CKD-EPI) (test code = 19472) 110 ML/MIN/1.73 CALC BUN/CREAT (test code = [...] code = 2219) 16 U/L Robert CaliHAPTOGLOBIN, [id number] 13:13:35* Test Item Value Reference Range Interpretation Comme nts HAPTOGLOBIN, QUANT (test cod e = 02735) 227 MG/DL 32-197 H [id number] 05:29:31* Test Item Value Reference Range Interpretation Comme nts TRANSFERRIN (test code = 4936) 380 MG/DL 200-360 H [id number] 05:29:31* Test Item Value Reference Range Interpretation Comme nts LDH (test code = 2224) 186 U/L 135-214 [id number] 04:14:38* Test Item Value Reference Range Interpretation Comme nts FERRITIN (test code = 2074) 6 NG/ML 13-200 L VITAMIN D, 25 [id number] 04:14:10* Test Item Value Reference Range Interpretation [...] IRON BINDING CAPACITY AND IRON AND % [id number] 04:13:51* Test Item Value Reference Range Interpretation Comme nts IRON, SERUM (test code = 222) 25 UG/DL 37-145 L UNSATURATED IBC (test code = 25455) 425 UG/DL 112-347 H CALC TOTAL IBC (test code = 2076) 450 UG/DL 250-450 CALC % IRON SAT (test code = 2079) 6 % 20-50 L URIC [id number] 04:13:51* Test Item Value Reference Range Interpretation Comme nts URIC ACID (test code = 223) 5.8 MG/DL 2.7-6.1 UNLESS OTHERWISE INDICATED, ALL TESTING PERFORMED AT [facility] [address] [place] [address] ROTO ROOTER OPERATOR: CHARLA HERNANDEZ M.D. CLIA NUMBER [id number] [facility] [place]. [id number] LIPID [id number] 04:13:51* Test Item Value Reference Range Interpretation Comme nts CHOLESTEROL (test code = 2210) 212 MG/DL <200 H TRIGLYCERIDES (test code = 2) 116 MG/DL <150 HDL CHOLESTEROL (test code = 2219) 53 MG/DL >39 CALC LDL CHOL (test code = 2236) 137 MG/DL <100 H NOTE: CALCULATED LDL IS BASED ON DOMINIQUE-PEREZ METHOD WHICHINCLUDES ADJUSTABLE TRIGLYCERIDE:VLDL CHOLESTEROL RATIO.THIS FACTOR VARIES BY MEASURED TRIGLYCERIDE AND NON-HDLCHOLESTEROL CONCENTRATIONS WITH INCREASED CALCULATED LDL SEENIN HIGHER TRIGLYCERIDE OR LOWER NON-HDL SPECIMENS. FOR MOREINFORMATION, SEE CLIENT ANNOUNCEMENT AT [email or web address] RATIO LDL/HDL (test code = 2237) 2.58 RATIO <3.22 COMPREHENSIVE METABOLIC [id number] 04:13:51* Test Item Value Reference Range Interpretation Comme nts GLUCOSE (test code = 2216) 97 MG/DL 70-99 BUN (test code = 2207) 9 MG/DL 6-20 CREATININE (test code = 2213) 0.86 MG/DL 0.60-1.30 eGFR (2020 CKD-EPI) (test co de = 58340) 84 ML/MIN/1.73 >60 CALC BUN/CREAT (test code = 5) 10 RATIO 6-28 SODIUM (test code = 2230) 140 MEQ/L 133-146 POTASSIUM (test code = 2227) 4.4 MEQ/L 3.5-5.4 CHLORIDE (test code = [...] code = 2219) 22 U/L 5-40 HEMOGLOBIN [id number] 03:10:06* Test Item Value Reference Range Interpretation Comme nts HEMOGLOBIN A1c (test code = 16843) 5.6 % 4.2-5.6 CBC W/AUTO DIFF RFLX SMEAR [id number] 02:37:07* Test Item Value Reference Range Interpretation [...] MANUAL DIFFERENTIAL WILL BE PERFORMED IF INDICATED.SEE [email or web address]- [email or web address] CONTACT YOUR LOCAL [facility] C[facility] SERVICEDEPARTMENT FOR FURTHER INFORMATION. LYMPHOCYTES [...] 0.00-0.10 ABS NUCLEATED RBCS (test code = 76486) 0.00 K/UL 0.00-0.11 RETICULOCYTE WITH [id number] 02:37:07* Test Item Value Reference Range Interpretation Comme nts RETICULOCYTE COUNT (test cod e = 1018) 2.55 % 0.80-2.40 H ABSOLUTE RETICULOCYTE (test code = 28183) 115.0 K/UL 32.0-105.0 H HEMOGLOBIN [id number] 00:00:00* Test Item Value Reference Range Interpretation Comme nts HEMOGLOBIN A1c (test code = 01090) 5.6 % Robert Ambrose VirajLIPID [id number] 00:00:00* Test Item Value Reference Range Interpretation Comme nts CHOLESTEROL (test code = 2210) 212 MG/DL TRIGLYCERIDES (test code = 2232) 116 MG/DL HDL CHOLESTEROL (test code = 2220) 53 MG/DL CALC LDL CHOL (test code = 2237) 137 MG/DL RISK RATIO LDL/HDL (test cod e = 2238) 2.58 RATIO Robert Ambrose VirajCOMPREHENSIVE METABOLIC [id number] 00:00:00* Test Item Value Reference Range Interpretation Comme nts GLUCOSE (test code = 2217) 97 MG/DL BUN (test code = 2208) 9 MG/DL CREATININE (test code = 2214) 0.86 MG/DL eGFR (2020 CKD-EPI) (test co de = 09213) 84 ML/MIN/1.73 CALC BUN/CREAT (test code = [...] 2219) 22 U/L Robert CaliVITAMIN D, 25 [id number] 00:00:00* Test Item Value Reference Range Interpretation Comme nts VITAMIN D, 25 OH (test code = 4958) 18 NG/ML Robert CaliCBC W/AUTO DIFF RFLX SMEAR [id number] 00:00:00* Test Item Value Reference Range Interpretation [...] ABS NUCLEATED RBCS (test cod e = 90530) 0.00 K/UL Robert CaliRETICULOCYTE WITH [id number] 00:00:00* Test Item Value Reference Range Interpretation Comme nts RETICULOCYTE COUNT (test cod e = 1018) 2.55 % ABSOLUTE RETICULOCYTE (test code = 35865) 115.0 K/UL Robert CaliHAPTOGLOBIN, [id number] 00:00:00* Test Item Value Reference Range Interpretation Comme evelia HAPTOGLOBIN, QUANT (test cod e = 20344) 227 MG/DL Robert [id number] 00:00:00* Test Item Value Reference Range Interpretation Comme nts LDH (test code = 2224) 186 U/L Robert CaliIRON BINDING CAPACITY AND IRON AND % [id number] 00:00:00* Test Item Value Reference Range Interpretation Comme nts IRON, SERUM (test code = 2222) 25 UG/DL UNSATURATED IBC (test code = 52142) 425 UG/DL CALC TOTAL IBC (test code = 2077) 450 UG/DL CALC % IRON SAT (test code = 2079) 6 % Robert [id number] 00:00:00* Test Item Value Reference Range Interpretation Comme nts FERRITIN (test code = 2075) 6 NG/ML Robert Ca[id number] 00:00:00* Test Item Value Reference Range Interpretation Comme nts TRANSFERRIN (test code = 4936) 380 MG/DL Robert CaliURIC [id number] 00:00:00* Test Item Value Reference Range Interpretation Comme nts URIC ACID (test code = 2233) 5.8 MG/DL Robert CaliHEMOGLOBIN [id number] 00:00:00* Test Item Value Reference Range Interpretation Comme evelia HEMOGLOBIN A1c (test code = 37282) 5.6 % Robert CaliLIPID [id number] 00:00:00* Test Item Value Reference Range Interpretation Comme nts CHOLESTEROL (test code = 2210) 212 MG/DL TRIGLYCERIDES (test code = 2232) 116 MG/DL HDL CHOLESTEROL (test code = 2220) 53 MG/DL CALC LDL CHOL (test code = 2237) 137 MG/DL RISK RATIO LDL/HDL (test cod e = 2238) 2.58 RATIO Robert CaliCOMPREHENSIVE METABOLIC [id number] 00:00:00* Test Item Value Reference Range Interpretation Comme nts GLUCOSE (test code = 2217) 97 MG/DL BUN (test code = 2208) 9 MG/DL CREATININE (test code = 2214) 0.86 MG/DL eGFR (2020 CKD-EPI) (test co de = 45600) 84 ML/MIN/1.73 CALC BUN/CREAT (test code = [...] 2219) 22 U/L Robert CaliVITAMIN D, 25 [id number] 00:00:00* Test Item Value Reference Range Interpretation Comme [facility] VITAMIN D, 25 OH (test code = 4958) 18 NG/ML Robert CaliCBC W/AUTO DIFF RFLX SMEAR [id number] 00:00:00* Test Item Value Reference Range Interpretation Comme [facility] WBC (test code = 1001) 6.2 [...] ABS NUCLEATED RBCS (test cod e = 56742) 0.00 K/UL Robert CaliRETICULOCYTE WITH [id number] 00:00:00* Test Item Value Reference Range Interpretation Comme nts RETICULOCYTE COUNT (test cod e = 1018) 2.55 % ABSOLUTE RETICULOCYTE (test code = 58764) 115.0 K/UL Robert CaliHAPTOGLOBIN, [id number] 00:00:00* Test Item Value Reference Range Interpretation Comme nts HAPTOGLOBIN, QUANT (test cod e = 80900) 227 MG/DL Robert [id number] 00:00:00* Test Item Value Reference Range Interpretation Comme nts LDH (test code = 2224) 186 U/L Robert CaliIRON BINDING CAPACITY AND IRON AND % [id number] 00:00:00* Test Item Value Reference Range Interpretation Comme nts IRON, SERUM (test code = 2222) 25 UG/DL UNSATURATED IBC (test code = 70652) 425 UG/DL CALC TOTAL IBC (test code = 2077) 450 UG/DL CALC % IRON SAT (test code = 2079) 6 % Robert [id number] 00:00:00* Test Item Value Reference Range Interpretation Comme nts FERRITIN (test code = 2075) 6 NG/ML Robert Ambrose [id number] 00:00:00* Test Item Value Reference Range Interpretation Comme nts TRANSFERRIN (test code = 4936) 380 MG/DL Robert Ambrose AustinURIC [id number] 00:00:00* Test Item Value Reference Range Interpretation Comme nts URIC ACID (test code = 2233) 5.8 MG/DL Robert Ambrose AustinHEMOGLOBIN [id number] 00:00:00* Test Item Value Reference Range Interpretation Comme nts HEMOGLOBIN A1c (test code = 16431) 5.6 % Robert CaliLIPID [id number] 00:00:00* Test Item Value Reference Range Interpretation Comme nts CHOLESTEROL (test code = 2210) 212 MG/DL TRIGLYCERIDES (test code = 2232) 116 MG/DL HDL CHOLESTEROL (test code = 2220) 53 MG/DL CALC LDL CHOL (test code = 2237) 137 MG/DL RISK RATIO LDL/HDL (test cod e = 2238) 2.58 RATIO Robert CaliCOMPREHENSIVE METABOLIC [id number] 00:00:00* Test Item Value Reference Range Interpretation Comme nts GLUCOSE (test code = 2217) 97 MG/DL BUN (test code = 2208) 9 MG/DL CREATININE (test code = 2214) 0.86 MG/DL eGFR (2020 CKD-EPI) (test co de = 22916) 84 ML/MIN/1.73 CALC BUN/CREAT (test code = [...] 2219) 22 U/L Robert CaliVITAMIN D, 25 [id number] 00:00:00* Test Item Value Reference Range Interpretation Comme nts VITAMIN D, 25 OH (test code = 4958) 18 NG/ML Robert CaliCBC W/AUTO DIFF RFLX SMEAR [id number] 00:00:00* Test Item Value Reference Range Interpretation [...] ABS NUCLEATED RBCS (test cod e = 31404) 0.00 K/UL Robert CaliRETICULOCYTE WITH [id number] 00:00:00* Test Item Value Reference Range Interpretation Comme nts RETICULOCYTE COUNT (test cod e = 1018) 2.55 % ABSOLUTE RETICULOCYTE (test code = 54664) 115.0 K/UL Robert CaliHAPTOGLOBIN, [id number] 00:00:00* Test Item Value Reference Range Interpretation Comme nts HAPTOGLOBIN, QUANT (test cod e = 16874) 227 MG/DL Robert Ambrose [id number] 00:00:00* Test Item Value Reference Range Interpretation Comme nts LDH (test code = 2224) 186 U/L Robert Ambrose AustinIRON BINDING CAPACITY AND IRON AND % [id number] 00:00:00* Test Item Value Reference Range Interpretation Comme nts IRON, SERUM (test code = 2222) 25 UG/DL UNSATURATED IBC (test code = ) 425 UG/DL CALC TOTAL IBC (test code = 2076) 450 UG/DL CALC % IRON SAT (test code = 2078) 6 % Robert [id number] 00:00:00* Test Item Value Reference Range Interpretation Comme nts FERRITIN (test code = 2074) 6 NG/ML Robert Ambrose [id number] 00:00:00* Test Item Value Reference Range Interpretation Comme nts TRANSFERRIN (test code = 4936) 380 MG/DL Robert Ambrose AustinURIC [id number] 00:00:00* Test Item Value Reference Range Interpretation Comme nts URIC ACID (test code = 2232) 5.8 MG/DL Robert CaliHEMOGLOBIN [id number] 00:00:00* Test Item Value Reference Range Interpretation Comme evelia HEMOGLOBIN A1c (test code = 90762) 5.6 % Robert CaliLIPID [id number] 00:00:00* Test Item Value Reference Range Interpretation Comme nts CHOLESTEROL (test code = 0) 212 MG/DL TRIGLYCERIDES (test code = 2231) 116 MG/DL HDL CHOLESTEROL (test code = 0) 53 MG/DL CALC LDL CHOL (test code = 7) 137 MG/DL RISK RATIO LDL/HDL (test cod e = 2238) 2.58 RATIO Robert CaliCOMPREHENSIVE METABOLIC [id number] 00:00:00* Test Item Value Reference Range Interpretation Comme nts GLUCOSE (test code = 7) 97 MG/DL BUN (test code = 2207) 9 MG/DL CREATININE (test code = 2214) 0.86 MG/DL eGFR (2020 CKD-EPI) (test co de = 62852) 84 ML/MIN/1.73 CALC BUN/CREAT (test code = 2235) 10 RATIO SODIUM (test code = 223) 140 MEQ/L POTASSIUM (test code = 2228) 4.4 MEQ/L CHLORIDE (test code = 2215) 104 MEQ/L CARBON DIOXIDE (test code = 2205) 25 MEQ/L CALCIUM (test code = 2209) 9.3 MG/DL PROTEIN, TOTAL (test code = 9) 6.5 G/DL ALBUMIN (test code = 2201) 4.4 G/DL CALC GLOBULIN (test code = 2240) 2.1 G/DL CALC A/G RATIO (test code = 2234) 2.1 RATIO BILIRUBIN, TOTAL (test code = 2207) <0.2 MG/DL ALKALINE PHOSPHATASE (test code = 2204) 149 U/L AST (test code = 2218) 17 U/L ALT (test code = 2219) 22 U/L Robert Ambrose VirajVITAMIN D, 25 [id number] 00:00:00* Test Item Value Reference Range Interpretation Comme nts VITAMIN D, 25 OH (test code = 4958) 18 NG/ML Robert Ambrose VirajCBC W/AUTO DIFF RFLX SMEAR [id number] 00:00:00* Test Item Value Reference Range Interpretation [...] ABS NUCLEATED RBCS (test cod e = 58880) 0.00 K/UL Robert CaliRETICULOCYTE WITH [id number] 00:00:00* Test Item Value Reference Range Interpretation Comme evelia RETICULOCYTE COUNT (test cod e = 1018) 2.55 % ABSOLUTE RETICULOCYTE (test code = 68424) 115.0 K/UL Robert CaliHAPTOGLOBIN, [id number] 00:00:00* Test Item Value Reference Range Interpretation Comme evelia HAPTOGLOBIN, QUANT (test cod e = 30404) 227 MG/DL Robert [id number] 00:00:00* Test Item Value Reference Range Interpretation Comme nts LDH (test code = 2224) 186 U/L Robert CaliIRON BINDING CAPACITY AND IRON AND % [id number] 00:00:00* Test Item Value Reference Range Interpretation Comme nts IRON, SERUM (test code = 2222) 25 UG/DL UNSATURATED IBC (test code = 15057) 425 UG/DL CALC TOTAL IBC (test code = 2077) 450 UG/DL CALC % IRON SAT (test code = 2079) 6 % Robert [id number] 00:00:00* Test Item Value Reference Range Interpretation Comme nts FERRITIN (test code = 2075) 6 NG/ML Robert CaliRqjweiYOPHKVXNQRU2291-39-30 00:00:00* Test Item Value Reference Range Interpretation Comme nts TRANSFERRIN (test code = 4936) 380 MG/DL Robert CaliURIC [id number] 00:00:00* Test Item Value Reference Range Interpretation Comme nts URIC ACID (test code = 2233) 5.8 MG/DL Robert CaliCT ACUTE STROKE ANGIOGRAM [id number] 13:46:46CT STROKE ANGIOGRAM HEAD, CT STROKE ANGIOGRAM [...] caliber. The superior cerebellar arteriesare patent. The STATUS CONTROLLER are patent bilaterally. No sizable posteriorcommunicating arteries are seen. The petrous, cavernous and supraclinoid internal carotid segmentsarewidely patent. The GIBSON and MCA are patent bilaterally. An anteriorcommunicating artery is seen. The dural venous sinuses are opacified and unremarkable.[facility] ACUTE STROKE ANGIOGRAM [id number] 13:46:46CT STROKE ANGIOGRAM HEAD, CT STROKE ANGIOGRAM [...] caliber. The superior cerebellar arteriesare patent. The STATUS CONTROLLER are patent bilaterally. No sizable posteriorcommunicating arteries are seen. The petrous, cavernous and supraclinoid internal carotid segmentsarewidely patent. The GIBSON and MCA are patent bilaterally. An anteriorcommunicating artery is seen. The dural venous sinuses are opacified and unremarkable.[facility] ACUTE STROKE ANGIOGRAM [id number] 13:46:46CT STROKE ANGIOGRAM HEAD, CT STROKE ANGIOGRAM [...] caliber. The superior cerebellar arteriesare patent. The STATUS CONTROLLER are patent bilaterally. No sizable posteriorcommunicating arteries are seen. The petrous, cavernous and supraclinoid internal carotid segmentsarewidely patent. The GIBSON and MCA are patent bilaterally. An anteriorcommunicating artery is seen. The dural venous sinuses are opacified and unremarkable.[facility] [id number] 13:46:46CT STROKE ANGIOGRAM HEAD, CT STROKE ANGIOGRAM [...] caliber. The superior cerebellar arteriesare patent. The STATUS CONTROLLER are patent bilaterally. No sizable posteriorcommunicating arteries are seen. The petrous, cavernous and supraclinoid internal carotid segmentsarewidely patent. The GIBSON and MCA are patent bilaterally. An anteriorcommunicating artery is seen. The dural venous sinuses are opacified and unremarkable.[facility] [id number] 13:44:48EXAM: CT STROKE HEAD WO CONTRAST HISTORY: [...] clear. Thecalvarium and central skull base are unremarkable.[facility] [id number] 13:44:48EXAM: CT STROKE HEAD WO CONTRAST HISTORY: [...] Thecalvarium and central skull base are unremarkable.[facility]2024-04-26 04:29:26* Test Item Value Reference Range Interpretation Comme nts [place] (test code = 5110354517) 0.6 mmol/L 0.6-1.2 ZAINAB (test code = ZAINAB) Toxic Range: ? Greater than 1.2 mmol/L Lab Interpretation (test code = 94804-7) Normal [facility]2024-04-26 04:29:26* Test Item Value Reference Range Interpretation Comme nts [place] (test code = 9796606801) 0.6 mmol/L 0.6-1.2 ZAINAB (test code = ZAINAB) Toxic Range: ? Greater than 1.2 mmol/L Lab Interpretation (test code = 31185-1) Normal [facility]2024-04-26 04:29:26* Test Item Value Reference Range Interpretation Comme nts [place] (test code = 1551167718) 0.6 mmol/L 0.6-1.2 ZAINAB (test code = ZAINAB) Toxic Range: ? Greater than 1.2 mmol/L Lab Interpretation (test code = 84428-1) [place] [address]-04-26 04:29:26* Test Item Value Reference Range Interpretation Comme nts [place] (test code = 9456500421) 0.6 mmol/L 0.6-1.2 ZAINAB (test code = ZAINAB) Toxic Range: ? Greater than 1.2 mmol/L Lab Interpretation (test code = 10329-7) [address]04-26 04:29:26* Test Item Value Reference Range Interpretation Comme nts [place] (test code = 5218593263) 0.6 mmol/L 0.6-1.2 ZAINAB (test code = ZAINAB) Toxic Range: ? Greater than 1.2 mmol/L Lab Interpretation (test code = 78519-2) [address]04-26 04:29:26* Test Item Value Reference Range Interpretation Comme nts [place] (test code = 9379627373) 0.6 mmol/L 0.6-1.2 ZAINAB (test code = ZAINAB) Toxic Range: ? Greater than 1.2 mmol/L Lab Interpretation (test code = 46688-2) [address]04-26 04:29:26* Test Item Value Reference Range Interpretation Comme nts [place] (test code = 0485401874) 0.6 mmol/L 0.6-1.2 ZAINAB (test code = ZAINAB) Toxic Range: ? Greater than 1.2 mmol/L Lab Interpretation (test code = 62560-1) [address]04-26 04:29:26* Test Item Value Reference Range Interpretation Comme nts [place] (test code = 8488046819) 0.6 mmol/L 0.6-1.2 ZAINAB (test code = ZAINAB) Toxic Range: ? Greater than 1.2 mmol/L Lab Interpretation (test code = 77332-4) [address]04-26 04:29:26* Test Item Value Reference Range Interpretation Comme nts [place] (test code = 1444632558) 0.6 mmol/L 0.6-1.2 ZAINAB (test code = ZAINAB) Toxic Range: ? Greater than 1.2 mmol/L Lab Interpretation (test code = 24014-4) Normal [facility]2024-04-26 03:33:22 ALCOHOL<10mg/dL06/07/2023 10:33 PM CDTUTMB LABORATORY SERVICESToxic Greater than or equal to 80 mg/dL. NOTE: Whole blood values are approximately 10% to 15% lower than serum and plasma.[facility]2024-04-26 03:33:22ALCOHOL<10mg/dL06/07/2023 10:33 PM CDTUTMB LABORATORY SERVICESToxic Greater than or equal to 80 mg/dL. NOTE: Whole blood values are approximately 10% to 15% lower than serum and plasma.[facility] 2023-06-08 03:33:22ALCOHOL<10mg/dL06/07/2023 10:33 PM CDTUTMB LABORATORY SERVICESToxic Greater than or equal to 80 mg/dL. NOTE: Whole blood values are approximately 10% to 15% lower than serum and plasma.[facility]2024-04-26 03:33:22ALCOHOL<10mg/dL06/07/2023 10:33 PM CDTUTMB LABORATORY SERVICESToxic Greater than or equal to 80 mg/dL. NOTE: Whole blood values are approximately 10% to 15% lower than serum and plasma.[facility]2024-04-26 03:33:22ALCOHOL<10mg/dL06/07/2023 10:33 PM CDTUTMB LABORATORY SERVICESToxic Greater than or equal to 80 mg/dL. NOTE: Whole blood values are approximately 10% to 15% lower than serum and plasma.[facility]2024-04-26 03:33:22ALCOHOL<10mg/dL06/07/2023 10:33 PM CDTUTMB LABORATORY SERVICESToxic Greater than or equal to 80 mg/dL. NOTE: Whole blood values are approximately 10% to 15% lower than serum and plasma. [facility]2024-04-26 03:33:22 ALCOHOL<10mg/dL06/07/2023 10:33 PM CDTUTMB LABORATORY SERVICESToxic Greater than or equal to 80 mg/dL. NOTE: Whole blood values are approximately 10% to 15% lower than serum and plasma.[facility]2024-04-26 03:33:22ALCOHOL<10mg/dL06/07/2023 10:33 PM CDTUTMB LABORATORY SERVICESToxic Greater than or equal to 80 mg/dL. NOTE: Whole blood values are approximately 10% to 15% lower than serum and plasma.[facility] 2023-06-08 03:33:22ALCOHOL<10mg/dL06/07/2023 10:33 PM CDTUTMB LABORATORY SERVICESToxic Greater than or equal to 80 mg/dL. NOTE: Whole blood values are approximately 10% to 15% lower than serum and plasma.[facility] I - Code [id number] 03:15:34* Test Item Value Reference Range Interpretation Comme nts TROPONIN I (test code = 3321096820) 0.003 ng/mL <=0.034 ZAINAB (test code = [...] of biotin. Lab Interpretation (test code = 98253-1) Normal [facility] I - Code [id number] 03:15:34* Test Item Value Reference Range Interpretation Comme nts TROPONIN I (test code = 8830460561) 0.003 ng/mL <=0.034 ZAINAB (test code = [...] of biotin. Lab Interpretation (test code = 92719-5) Normal [facility] I - Code [id number] 03:15:34* Test Item Value Reference Range Interpretation Comme nts TROPONIN I (test code = 9528893870) 0.003 ng/mL <=0.034 ZAINAB (test code = [...] of biotin. Lab Interpretation (test code = 11317-7) Normal [facility] I - Code [id number] 03:15:34* Test Item Value Reference Range Interpretation Comme nts TROPONIN I (test code = 5280369055) 0.003 ng/mL <=0.034 ZAINAB (test code = [...] of biotin. Lab Interpretation (test code = 27477-6) Normal [facility] I - Code Iujqyl8114-48-03 03:15:34* Test Item Value Reference Range Interpretation Comme nts TROPONIN I (test code = 0752489228) 0.003 ng/mL <=0.034 ZAINAB (test code = [...] of biotin. Lab Interpretation (test code = 83004-8) Normal [facility] I - Code [id number] 03:15:34* Test Item Value Reference Range Interpretation Comme nts TROPONIN I (test code = 4624753712) 0.003 ng/mL <=0.034 ZAINAB (test code = [...] of biotin. Lab Interpretation (test code = 83641-7) Normal [facility] I - Code [id number] 03:15:34* Test Item Value Reference Range Interpretation Comme nts TROPONIN I (test code = 6054891552) 0.003 ng/mL <=0.034 ZAINAB (test code = [...] of biotin. Lab Interpretation (test code = 81864-9) Normal [facility] I - Code [id number] 03:15:34* Test Item Value Reference Range Interpretation Comme nts TROPONIN I (test code = 0853370368) 0.003 ng/mL <=0.034 ZAINAB (test code = [...] of biotin. Lab Interpretation (test code = 23813-3) Normal [facility] I - Code [id number] 03:15:34* Test Item Value Reference Range Interpretation Comme nts TROPONIN I (test code = 3066305947) 0.003 ng/mL <=0.034 ZAINAB (test code = [...] of biotin. Lab Interpretation (test code = 45883-2) Normal [facility] Metabolic Panel (NA, K, CL, CO2, Glucose, BUN, Creatinine, CA) - Code Inizoa1197-42-72 03:03:47* Test Item Value Reference Range Interpretation Comme nts NA (test code = 6994281663) 135 mmol/L 135-145 K (test code = 1012143319) 4.3 mmol/L 3.5-5.0 CL (test code = 8160391548) 103 mmol/L 98-108 CO2 TOTAL (test code = 3836958465) 28 mmol/L 23-31 AGAP (test code = 9446662966) 4 2-16 BUN (test code = 2646449759) 11 mg/dL 7-23 GLUCOSE (test code = 9671636443) 120 mg/dL 70-110 H CREATININE (test code = 2160-0) 0.71 mg/dL 0.50-1.04 CALCIUM (test code = 2088788671) 9.3 mg/dL 8.6-10.6 eGFR (test code = 62588-8) 107.0 mL/min/1.73m2 CKD-EPI eGFR (2020). Assuming creatinine has been stable day-to-day for at least three months, the eGFR indicates Category G1 (>= 90 mL/min/1.73 m2) Lab Interpretation (test code = 83538-1) Abnormal [facility] Metabolic Panel (NA, K, CL, CO2, Glucose, BUN, Creatinine, CA) - Code Ecirbo8352-39-60 03:03:47* Test Item Value Reference Range Interpretation Comme nts NA (test code = 9783479205) 135 mmol/L 135-145 K (test code = 9858095421) 4.3 mmol/L 3.5-5.0 CL (test code = 6660809844) 103 mmol/L 98-108 CO2 TOTAL (test code = 7412706241) 28 mmol/L 23-31 AGAP (test code = 4266017967) 4 2-16 BUN (test code = 9038144612) 11 mg/dL 7-23 GLUCOSE (test code = 1253055190) 120 mg/dL 70-110 H CREATININE (test code = 2160-0) 0.71 mg/dL 0.50-1.04 CALCIUM (test code = 1767186263) 9.3 mg/dL 8.6-10.6 eGFR (test code = 54374-8) 107.0 mL/min/1.73m2 CKD-EPI eGFR (2020). Assuming creatinine has been stable day-to-day for at least three months, the eGFR indicates Category G1 (>= 90 mL/min/1.73 m2) Lab Interpretation (test code = 04207-1) Abnormal [facility] Metabolic Panel (NA, K, CL, CO2, Glucose, BUN, Creatinine, CA) - Code Ijbzjt3440-36-42 03:03:47* Test Item Value Reference Range Interpretation Comme nts NA (test code = 7689768495) 135 mmol/L 135-145 K (test code = 7114676246) 4.3 mmol/L 3.5-5.0 CL (test code = 7849531561) 103 mmol/L 98-108 CO2 TOTAL (test code = 1070208377) 28 mmol/L 23-31 AGAP (test code = 9124928639) 4 2-16 BUN (test code = 8197421510) 11 mg/dL 7-23 GLUCOSE (test code = 4000848404) 120 mg/dL 70-110 H CREATININE (test code = 2160-0) 0.71 mg/dL 0.50-1.04 CALCIUM (test code = 4967882316) 9.3 mg/dL 8.6-10.6 eGFR (test code = 22954-5) 107.0 mL/min/1.73m2 CKD-EPI eGFR (2020). Assuming creatinine has been stable day-to-day for at least three months, the eGFR indicates Category G1 (>= 90 mL/min/1.73 m2) Lab Interpretation (test code = 09038-6) Abnormal [facility] Metabolic Panel (NA, K, CL, CO2, Glucose, BUN, Creatinine, CA) - Code Rqiadn9205-40-86 03:03:47* Test Item Value Reference Range Interpretation Comme nts NA (test code = 0441535697) 135 mmol/L 135-145 K (test code = 5500410460) 4.3 mmol/L 3.5-5.0 CL (test code = 0089680467) 103 mmol/L 98-108 CO2 TOTAL (test code = 0689929894) 28 mmol/L 23-31 AGAP (test code = 1231403287) 4 2-16 BUN (test code = 3148576910) 11 mg/dL 7-23 GLUCOSE (test code = 9391073634) 120 mg/dL 70-110 H CREATININE (test code = 2160-0) 0.71 mg/dL 0.50-1.04 CALCIUM (test code = 3741865241) 9.3 mg/dL 8.6-10.6 eGFR (test code = 91476-7) 107.0 mL/min/1.73m2 CKD-EPI eGFR (2020). Assuming creatinine has been stable day-to-day for at least three months, the eGFR indicates Category G1 (>= 90 mL/min/1.73 m2) Lab Interpretation (test code = 43235-7) Abnormal [facility] Metabolic Panel (NA, K, CL, CO2, Glucose, BUN, Creatinine, CA) - Code Fgbwos0684-93-68 03:03:47* Test Item Value Reference Range Interpretation Comme nts NA (test code = 1043612969) 135 mmol/L 135-145 K (test code = 8341138946) 4.3 mmol/L 3.5-5.0 CL (test code = 8707369498) 103 mmol/L 98-108 CO2 TOTAL (test code = 1687063521) 28 mmol/L 23-31 AGAP (test code = 9325416245) 4 2-16 BUN (test code = 7065621127) 11 mg/dL 7-23 GLUCOSE (test code = 1684649534) 120 mg/dL 70-110 H CREATININE (test code = 2160-0) 0.71 mg/dL 0.50-1.04 CALCIUM (test code = 3585472009) 9.3 mg/dL 8.6-10.6 eGFR (test code = 78067-3) 107.0 mL/min/1.73m2 CKD-EPI eGFR (2020). Assuming creatinine has been stable day-to-day for at least three months, the eGFR indicates Category G1 (>= 90 mL/min/1.73 m2) Lab Interpretation (test code = 93118-6) Abnormal [facility] Metabolic Panel (NA, K, CL, CO2, Glucose, BUN, Creatinine, CA) - Code [id number] 03:03:47* Test Item Value Reference Range Interpretation Comme nts NA (test code = 9375972483) 135 mmol/L 135-145 K (test code = 6256294415) 4.3 mmol/L 3.5-5.0 CL (test code = 9513023243) 103 mmol/L 98-108 CO2 TOTAL (test code = 5006737527) 28 mmol/L 23-31 AGAP (test code = 5129270935) 4 2-16 BUN (test code = 9819079525) 11 mg/dL 7-23 GLUCOSE (test code = 0349793507) 120 mg/dL 70-110 H CREATININE (test code = 2160-0) 0.71 mg/dL 0.50-1.04 CALCIUM (test code = 5656403550) 9.3 mg/dL 8.6-10.6 eGFR (test code = 90543-8) 107.0 mL/min/1.73m2 CKD-EPI eGFR (2020). Assuming creatinine has been stable day-to-day for at least three months, the eGFR indicates Category G1 (>= 90 mL/min/1.73 m2) Lab Interpretation (test code = 09855-1) Abnormal [facility] Metabolic Panel (NA, K, CL, CO2, Glucose, BUN, Creatinine, CA) - Code [id number] 03:03:47* Test Item Value Reference Range Interpretation Comme nts NA (test code = 7302734293) 135 mmol/L 135-145 K (test code = 7150877414) 4.3 mmol/L 3.5-5.0 CL (test code = 9419982161) 103 mmol/L 98-108 CO2 TOTAL (test code = 6586018274) 28 mmol/L 23-31 AGAP (test code = 3828357337) 4 2-16 BUN (test code = 3670938713) 11 mg/dL 7-23 GLUCOSE (test code = 0978929684) 120 mg/dL 70-110 H CREATININE (test code = 2160-0) 0.71 mg/dL 0.50-1.04 CALCIUM (test code = 5240788575) 9.3 mg/dL 8.6-10.6 eGFR (test code = 41585-6) 107.0 mL/min/1.73m2 CKD-EPI eGFR (2020). Assuming creatinine has been stable day-to-day for at least three months, the eGFR indicates Category G1 (>= 90 mL/min/1.73 m2) Lab Interpretation (test code = 11491-1) Abnormal [facility] Metabolic Panel (NA, K, CL, CO2, Glucose, BUN, Creatinine, CA) - Code Tfhvef9877-08-74 03:03:47* Test Item Value Reference Range Interpretation Comme nts NA (test code = 6286964887) 135 mmol/L 135-145 K (test code = 7587698216) 4.3 mmol/L 3.5-5.0 CL (test code = 3549076969) 103 mmol/L 98-108 CO2 TOTAL (test code = 7752100785) 28 mmol/L 23-31 AGAP (test code = 5712380209) 4 2-16 BUN (test code = 6309864546) 11 mg/dL 7-23 GLUCOSE (test code = 8003179846) 120 mg/dL 70-110 H CREATININE (test code = 2160-0) 0.71 mg/dL 0.50-1.04 CALCIUM (test code = 5720183143) 9.3 mg/dL 8.6-10.6 eGFR (test code = 60563-4) 107.0 mL/min/1.73m2 CKD-EPI eGFR (2020). Assuming creatinine has been stable day-to-day for at least three months, the eGFR indicates Category G1 (>= 90 mL/min/1.73 m2) Lab Interpretation (test code = 84493-3) Abnormal [facility] Metabolic Panel (NA, K, CL, CO2, Glucose, BUN, Creatinine, CA) - Code Jqosko2136-07-71 03:03:47* Test Item Value Reference Range Interpretation Comme nts NA (test code = 0832988647) 135 mmol/L 135-145 K (test code = 2856635649) 4.3 mmol/L 3.5-5.0 CL (test code = 7824022200) 103 mmol/L 98-108 CO2 TOTAL (test code = 2024298041) 28 mmol/L 23-31 AGAP (test code = 0156856036) 4 2-16 BUN (test code = 6192617209) 11 mg/dL 7-23 GLUCOSE (test code = 1832959030) 120 mg/dL 70-110 H CREATININE (test code = 2160-0) 0.71 mg/dL 0.50-1.04 CALCIUM (test code = 0934512833) 9.3 mg/dL 8.6-10.6 eGFR (test code = 86262-6) 107.0 mL/min/1.73m2 CKD-EPI eGFR (2020). Assuming creatinine has been stable day-to-day for at least three months, the eGFR indicates Category G1 (>= 90 mL/min/1.73 m2) Lab Interpretation (test code = 51614-9) [facility] Code [id number] 03:00:48* Test Item Value Reference Range Interpretation Comme [facility] PROTIME PATIENT (test code = 5964-2) 10.4 10.1-12.6 INR (test code = 6301-6) 0.9 Normal INR <1.1; Warfarin Therapeutic range 2.0 to 3.0 or 2.5 to 3.5, depending upon the indications. Lab Interpretation (test code = 71552-0) [facility] - Code Cmzkrw7894-40-11 03:00:48* Test Item Value Reference Range Interpretation Comme [facility] PROTIME PATIENT (test code = 5964-2) 10.4 10.1-12.6 INR (test code = 6301-6) 0.9 Normal INR <1.1; Warfarin Therapeutic range 2.0 to 3.0 or 2.5 to 3.5, depending upon the indications. Lab Interpretation (test code = 66352-7) [facility] - Code Aykgfq1434-86-88 03:00:48* Test Item Value Reference Range Interpretation Comme [facility] PROTIME PATIENT (test code = 5964-2) 10.4 10.1-12.6 INR (test code = 6301-6) 0.9 Normal INR <1.1; Warfarin Therapeutic range 2.0 to 3.0 or 2.5 to 3.5, depending upon the indications. Lab Interpretation (test code = 95072-7) [facility] - Code Rsssjl3373-91-47 03:00:48* Test Item Value Reference Range Interpretation Comme nts PROTIME PATIENT (test code = 5964-2) 10.4 10.1-12.6 INR (test code = 6301-6) 0.9 Normal INR <1.1; Warfarin Therapeutic range 2.0 to 3.0 or 2.5 to 3.5, depending upon the indications. Lab Interpretation (test code = 27952-5) [facility] - Code Jlrszw8107-34-89 03:00:48* Test Item Value Reference Range Interpretation Comme nts PROTIME PATIENT (test code = 5964-2) 10.4 10.1-12.6 INR (test code = 6301-6) 0.9 Normal INR <1.1; Warfarin Therapeutic range 2.0 to 3.0 or 2.5 to 3.5, depending upon the indications. Lab Interpretation (test code = 39162-8) [facility] - Code Okmugi9399-53-20 03:00:48* Test Item Value Reference Range Interpretation Comme nts PROTIME PATIENT (test code = 5964-2) 10.4 10.1-12.6 INR (test code = 6301-6) 0.9 Normal INR <1.1; Warfarin Therapeutic range 2.0 to 3.0 or 2.5 to 3.5, depending upon the indications. Lab Interpretation (test code = 14916-0) [facility] - Code Xryudl9934-20-13 03:00:48* Test Item Value Reference Range Interpretation Comme nts PROTIME PATIENT (test code = 5964-2) 10.4 10.1-12.6 INR (test code = 6301-6) 0.9 Normal INR <1.1; Warfarin Therapeutic range 2.0 to 3.0 or 2.5 to 3.5, depending upon the indications. Lab Interpretation (test code = 36544-3) [facility] - Code Iijsit5412-13-09 03:00:48* Test Item Value Reference Range Interpretation Comme nts PROTIME PATIENT (test code = 5964-2) 10.4 10.1-12.6 INR (test code = 6301-6) 0.9 Normal INR <1.1; Warfarin Therapeutic range 2.0 to 3.0 or 2.5 to 3.5, depending upon the indications. Lab Interpretation (test code = 38503-0) [facility] - Code Snormt1216-87-58 03:00:48* Test Item Value Reference Range Interpretation Comme nts PROTIME PATIENT (test code = 5964-2) 10.4 10.1-12.6 INR (test code = 6301-6) 0.9 Normal INR <1.1; Warfarin Therapeutic range 2.0 to 3.0 or 2.5 to 3.5, depending upon the indications. Lab Interpretation (test code = 91659-5) [facility] - Code Ekqjih9991-10-74 03:00:47* Test Item Value Reference Range Interpretation Comme nts APTT Patient (test code = 3173-2) -36 Lab Interpretation (test cod e = 25264-0) [facility] Code Reilbe0763-12-19 03:00:47* Test Item Value Reference Range Interpretation Comme nts APTT Patient (test code = 3173-2) -36 Lab Interpretation (test cod e = 00848-4) [facility] Code Ktnmvt5060-24-07 03:00:47* Test Item Value Reference Range Interpretation Comme nts APTT Patient (test code = 3173-2) -36 Lab Interpretation (test cod e = 62098-1) [facility] Code Xkvoxb4930-14-40 03:00:47* Test Item Value Reference Range Interpretation Comme nts APTT Patient (test code = 3173-2) -36 Lab Interpretation (test cod e = 98028-0) [facility] Code Sfenmo0124-06-26 03:00:47* Test Item Value Reference Range Interpretation Comme nts APTT Patient (test code = 3173-2) -36 Lab Interpretation (test cod e = 97762-0) [facility] Code Lpupcj7542-61-41 03:00:47* Test Item Value Reference Range Interpretation Comme nts APTT Patient (test code = 3173-2) -36 Lab Interpretation (test cod e = 78696-8) [facility] Code Divpon6781-11-33 03:00:47* Test Item Value Reference Range Interpretation Comme nts APTT Patient (test code = 3173-2) -36 Lab Interpretation (test cod e = 27899-9) [facility] Code Zfgsqq8060-67-18 03:00:47* Test Item Value Reference Range Interpretation Comme nts APTT Patient (test code = 3173-2) -36 Lab Interpretation (test cod e = 53203-6) [facility] - Code Iupvpz8472-34-84 03:00:47* Test Item Value Reference Range Interpretation Comme nts APTT Patient (test code = 3173-2) -36 Lab Interpretation (test cod e = 64913-3) Normal [facility] without Diff - Code Ldlghs9013-65-42 02:52:09* Test Item Value Reference Range Interpretation [...] 367 166-358 H MPV (test code = 33574-0) 11.3 fL 9.5-12.9 RDW-CV (test code = 788-0) 15.4 % 12.0-15.5 RDW-SD (test code = 78572-9) 43.8 fL 39.0-49.9 NRBC x10^3 (test code = 1693077640) See_Comment [[employer]] The system which generated this result transmitted reference range: 10*3/?L. The reference range was not used to interpret this result as normal/abnormal. NRBC/100 WBC (test code = 5469706024) 0.0 0.0-10.0 IPF % (test code = 8943933694) Lab Interpretation (test code = 26133-2) Abnormal [facility] without Diff - Code Mushuq3477-03-17 02:52:09* Test Item Value Reference Range Interpretation [...] 367 166-358 H MPV (test code = 72171-1) 11.3 fL 9.5-12.9 RDW-CV (test code = 788-0) 15.4 % 12.0-15.5 RDW-SD (test code = 94575-6) 43.8 fL 39.0-49.9 NRBC x10^3 (test code = 8120645358) See_Comment [[employer]] The system which generated this result transmitted reference range: 10*3/?L. The reference range was not used to interpret this result as normal/abnormal. NRBC/100 WBC (test code = 4850743653) 0.0 0.0-10.0 IPF % (test code = 5760734792) Lab Interpretation (test code = 38998-6) Abnormal [facility] without Diff - Code Rzjgsz5782-96-79 02:52:09* Test Item Value Reference Range Interpretation [...] 367 166-358 H MPV (test code = 29137-6) 11.3 fL 9.5-12.9 RDW-CV (test code = 788-0) 15.4 % 12.0-15.5 RDW-SD (test code = 25357-4) 43.8 fL 39.0-49.9 NRBC x10^3 (test code = 7105591298) See_Comment [Autom[employer]] The system which generated this result transmitted reference range: 10*3/?L. The reference range was not used to interpret this result as normal/abnormal. NRBC/100 WBC (test code = 6200479435) 0.0 0.0-10.0 IPF % (test code = 3895616426) Lab Interpretation (test code = 13487-2) Abnormal [facility] without Diff - Code Tvxtpi2238-56-81 02:52:09* Test Item Value Reference Range Interpretation [...] 367 166-358 H MPV (test code = 84036-7) 11.3 fL 9.5-12.9 RDW-CV (test code = 788-0) 15.4 % 12.0-15.5 RDW-SD (test code = 15740-3) 43.8 fL 39.0-49.9 NRBC x10^3 (test code = 7071792231) See_Comment [Automated [employer]] The system which generated this result transmitted reference range: 10*3/?L. The reference range was not used to interpret this result as normal/abnormal. NRBC/100 WBC (test code = 7238717000) 0.0 0.0-10.0 IPF % (test code = 2366219652) Lab Interpretation (test code = 65267-8) Abnormal [facility] without Diff - Code Dzcthk0847-65-20 02:52:09* Test Item Value Reference Range Interpretation [...] 367 166-358 H MPV (test code = 22018-0) 11.3 fL 9.5-12.9 RDW-CV (test code = 788-0) 15.4 % 12.0-15.5 RDW-SD (test code = 89947-8) 43.8 fL 39.0-49.9 NRBC x10^3 (test code = 7725543863) See_Comment [[employer]] The system which generated this result transmitted reference range: 10*3/?L. The reference range was not used to interpret this result as normal/abnormal. NRBC/100 WBC (test code = 8642939861) 0.0 0.0-10.0 IPF % (test code = 5989522109) Lab Interpretation (test code = 59674-5) Abnormal [facility] without Diff - Code Dcxwaf9776-35-28 02:52:09* Test Item Value Reference Range Interpretation [...] 367 166-358 H MPV (test code = 84255-2) 11.3 fL 9.5-12.9 RDW-CV (test code = 788-0) 15.4 % 12.0-15.5 RDW-SD (test code = 91137-9) 43.8 fL 39.0-49.9 NRBC x10^3 (test code = 4240691938) See_Comment [[employer]] The system which generated this result transmitted reference range: 10*3/?L. The reference range was not used to interpret this result as normal/abnormal. NRBC/100 WBC (test code = 4938667268) 0.0 0.0-10.0 IPF % (test code = 2750673799) Lab Interpretation (test code = 00662-1) Abnormal [facility] without Diff - Code Slcixk5075-87-56 02:52:09* Test Item Value Reference Range Interpretation [...] 367 166-358 H MPV (test code = 97220-2) 11.3 fL 9.5-12.9 RDW-CV (test code = 788-0) 15.4 % 12.0-15.5 RDW-SD (test code = 40770-3) 43.8 fL 39.0-49.9 NRBC x10^3 (test code = 1093792209) See_Comment [Automated mess[employer] ge] The system which generated this result transmitted reference range: 10*3/?L. The reference range was not used to interpret this result as normal/abnormal. NRBC/100 WBC (test code = 6482561308) 0.0 0.0-10.0 IPF % (test code = 6793773183) Lab Interpretation (test code = 84477-5) Abnormal [facility] without Diff - Code Zrxaqh0868-95-79 02:52:09* Test Item Value Reference Range Interpretation [...] 367 166-358 H MPV (test code = 36408-9) 11.3 fL 9.5-12.9 RDW-CV (test code = 788-0) 15.4 % 12.0-15.5 RDW-SD (test code = 98165-5) 43.8 fL 39.0-49.9 NRBC x10^3 (test code = 1278820372) See_Comment [[employer]] The system which generated this result transmitted reference range: 10*3/?L. The reference range was not used to interpret this result as normal/abnormal. NRBC/100 WBC (test code = 8541067833) 0.0 0.0-10.0 IPF % (test code = 5822995091) Lab Interpretation (test code = 36143-3) Abnormal [facility] without Diff - Code Sbudgu1312-15-03 02:52:09* Test Item Value Reference Range Interpretation [...] 367 166-358 H MPV (test code = 41068-9) 11.3 fL 9.5-12.9 RDW-CV (test code = 788-0) 15.4 % 12.0-15.5 RDW-SD (test code = 14677-8) 43.8 fL 39.0-49.9 NRBC x10^3 (test code = 6589390589) See_Comment [Automated mess[employer] ge] The system which generated this result transmitted reference range: 10*3/?L. The reference range was not used to interpret this result as normal/abnormal. NRBC/100 WBC (test code = 1311640319) 0.0 0.0-10.0 IPF % (test code = 6923933820) Lab Interpretation (test code = 20744-0) [facility]Age >30 Days) - Code Stroke 2023-06-08 02:39:00* Test Item Value Reference Range Interpretation Comme nts POCT Glu (age>30days) (test code = 3342) 124 mg/dL 70-110 A Lab Interpretation (test cod e = 52575-3) [facility] (Age >30 Days) - Code Stroke 2023-06-08 02:39:00* Test Item Value Reference Range Interpretation Comme nts POCT Glu (age>30days) (test code = 3342) 124 mg/dL 70-110 A Lab Interpretation (test cod e = 77083-6) [facility] (Age >30 Days) - Code Stroke 2023-06-08 02:39:00* Test Item Value Reference Range Interpretation Comme nts POCT Glu (age>30days) (test code = 3342) 124 mg/dL 70-110 A Lab Interpretation (test cod e = 91020-9) [facility] (Age >30 Days) - Code Stroke 2023-06-08 02:39:00* Test Item Value Reference Range Interpretation Comme nts POCT Glu (age>30days) (test code = 3342) 124 mg/dL 70-110 A Lab Interpretation (test cod e = 91164-8) [facility] (Age >30 Days) - Code Stroke 2023-06-08 02:39:00* Test Item Value Reference Range Interpretation Comme nts POCT Glu (age>30days) (test code = 3342) 124 mg/dL 70-110 A Lab Interpretation (test cod e = 16125-7) [facility] >30 Days[facility] - Code Stroke 2023-06-08 02:39:00* Test Item Value Reference Range Interpretation Comme nts POCT Glu (age>30days) (test code = 3342) 124 mg/dL 70-110 A Lab Interpretation (test cod e = 22983-5) [facility] (Age >30 Days) - Code Stroke 2023-06-08 02:39:00* Test Item Value Reference Range Interpretation Comme nts POCT Glu (age>30days) (test code = 3342) 124 mg/dL 70-110 A Lab Interpretation (test cod e = 00657-7) [facility] (Age >30 Days) - Code Stroke 2023-06-08 02:39:00* Test Item Value Reference Range Interpretation Comme nts POCT Glu (age>30days) (test code = 3342) 124 mg/dL 70-110 A Lab Interpretation (test cod e = 19383-9) [facility] (Age >30 Days) - Code Stroke 2023-06-08 02:39:00* Test Item Value Reference Range Interpretation Comme nts POCT Glu (age>30days) (test code = 3342) 124 mg/dL 70-110 A Lab Interpretation (test cod e = 37439-6) [facility] Center[facility] Ntxwh1747-99-00 19:59:01* Test Item Value Reference Range Interpretation Comme nts FERRITIN (test code = 2138508654) 22.4 ng/mL 6.0-137.0 ZAINAB (test code = ZAINAB) Biotin has been reported to cause a negative bias, interpret results relative to patient's use of biotin. Lab Interpretation (test code = 70475-9) [facility] Rpqlw9640-75-64 19:59:01* Test Item Value Reference Range Interpretation Comme nts FERRITIN (test code = 2963453616) 22.4 ng/mL 6.0-137.0 ZAINAB (test code = ZAINAB) Biotin has been reported to cause a negative bias, interpret results relative to patient's use of biotin. Lab Interpretation (test code = 24524-2) [facility] Moqcx1260-62-50 19:59:01* Test Item Value Reference Range Interpretation Comme nts FERRITIN (test code = 5205924979) 22.4 ng/mL 6.0-137.0 ZAINAB (test code = ZAINAB) Biotin has been reported to cause a negative bias, interpret results relative to patient's use of biotin. Lab Interpretation (test code = 76843-9) Normal [facility] Zewpy4093-56-42 19:59:01* Test Item Value Reference Range Interpretation Comme nts FERRITIN (test code = 3489561221) 22.4 ng/mL 6.0-137.0 ZAINAB (test code = ZAINAB) Biotin has been reported to cause a negative bias, interpret results relative to patient's use of biotin. Lab Interpretation (test code = 27355-4) Normal [facility] Fnogq8874-34-39 19:59:01* Test Item Value Reference Range Interpretation Comme nts FERRITIN (test code = 3131142914) 22.4 ng/mL 6.0-137.0 ZAINAB (test code = ZAINAB) Biotin has been reported to cause a negative bias, interpret results relative to patient's use of biotin. Lab Interpretation (test code = 76575-6) Normal [facility] Aknhs0573-10-04 19:59:01* Test Item Value Reference Range Interpretation Comme nts FERRITIN (test code = 4268636437) 22.4 ng/mL 6.0-137.0 ZAINAB (test code = ZAINAB) Biotin has been reported to cause a negative bias, interpret results relative to patient's use of biotin. Lab Interpretation (test code = 17698-4) Normal [facility] Lbwqq5862-99-85 19:30:52* Test Item Value Reference Range Interpretation Comme nts IRON (test code = 8844968390) 54 ug/dL 50-160 TIBC (test code = 2838130330) 434 ug/dL 250-410 H % FE SAT (test code = 7274843289) 12 % 20-50 L Lab Interpretation (test cod e = 53256-1) Abnormal [facility] Zctfh8427-01-79 19:30:52* Test Item Value Reference Range Interpretation Comme nts IRON (test code = 2265501480) 54 ug/dL 50-160 TIBC (test code = 1578127398) 434 ug/dL 250-410 H % FE SAT (test code = 4466166050) 12 % 20-50 L Lab Interpretation (test cod e = 25026-1) Abnormal [facility] Lczhv8247-10-17 19:30:52* Test Item Value Reference Range Interpretation Comme nts IRON (test code = 8803340231) 54 ug/dL 50-160 TIBC (test code = 1675420029) 434 ug/dL 250-410 H % FE SAT (test code = 3494406737) 12 % 20-50 L Lab Interpretation (test cod e = 33593-5) Abnormal [facility] Licmm4777-70-14 19:30:52* Test Item Value Reference Range Interpretation Comme nts IRON (test code = 9963984185) 54 ug/dL 50-160 TIBC (test code = 7486508023) 434 ug/dL 250-410 H % FE SAT (test code = 7233473293) 12 % 20-50 L Lab Interpretation (test cod e = 15399-0) Abnormal [facility] Oanpl5782-13-23 19:30:52* Test Item Value Reference Range Interpretation Comme nts IRON (test code = 1496997966) 54 ug/dL 50-160 TIBC (test code = 3187296004) 434 ug/dL 250-410 H % FE SAT (test code = 1695247573) 12 % 20-50 L Lab Interpretation (test cod e = 58307-7) Abnormal [facility] Zzbei7550-82-41 19:30:52* Test Item Value Reference Range Interpretation Comme nts IRON (test code = 4199408970) 54 ug/dL 50-160 TIBC (test code = 6902506554) 434 ug/dL 250-410 H % FE SAT (test code = 1103004794) 12 % 20-50 L Lab Interpretation (test cod e = 00375-6) Abnormal [facility]2023-12-11 20:01:05* Test Item Value Reference Range Interpretation Comme nts [place] (test code = 2478508585) 0.5 mmol/L 0.6-1.2 L ZAINAB (test code = ZAINAB) Toxic Range: ? Greater than 1.2 mmol/L Lab Interpretation (test code = 19582-7) Abnormal [facility]2023-12-11 20:01:05* Test Item Value Reference Range Interpretation Comme nts [place] (test code = 2240719548) 0.5 mmol/L 0.6-1.2 L ZAINAB (test code = ZAINAB) Toxic Range: ? Greater than 1.2 mmol/L Lab Interpretation (test code = 06033-5) Abnormal [facility]2023-12-11 20:01:05* Test Item Value Reference Range Interpretation Comme nts [place] (test code = 1924566585) 0.5 mmol/L 0.6-1.2 L ZAINAB (test code = ZAINAB) Toxic Range: ? Greater than 1.2 mmol/L Lab Interpretation (test code = 52352-1) [facility] [id number] 19:23:05* Test Item Value Reference Range Interpretation Comme nts Case Report (test code = 2127287592) Surgical Pathology ?Case: [id number] ? Authorizing Provider: ?Dominic Keita MD ? [...] HPylori ? Final Diagnosis (test code = 0494792322) e1horRUlQQFfx0dqIYCgiS FuZzEwMzNcZnRuYmpcdWMx JRusiiXgMQzcgSchECC2YT CiVW3fhYkctFb1xZtzCVDq iuL9iNTfBEqza5xiDLH1o5 jprvlpHPQlHAujHf3kwONk eVpnVeAaUOYrSQk5xM70DX UoxZ2loYRaRDc1GBBgxVLs kwDhTaTsPLSeuDLbnMQ9TP QaWZ1ggtwrHExjXRtfTAWc yuC8CQYjtRLnJ1LgENDwVN 9cwbtuRFT3FLvbOXDbGNA0 PlRkWUFup3Ryecg2IuCtdC FyZFxwbGFpblxmczIwXHBh bnYHSeLIAW0TIYYSDRZVH4 xFEWAWNU9ZALDMVlxhoCHz KWMrROIsQVKLBT6VBVMdS7 uEVdObXC9FXXQdMZGmoIQx JUZrybCMTrGKCO7NOU1RYB wgQklPUFNZOlxwYXIgICAg SJZdPKyRV5LNPQQyZVCNU4 WMWGePOAfiSi6zYTUVEN2B Y5dYN2OOAWUMQU5TMWklEO EbNMYxZSHfDX2PIOkzVCIK PD8KQQFGJUNVXUaAKOJIZS BZBLdTCCDHK3CTYWcQWDPd xfceTPEcWo8cV6PPMTXZCB wgQklPUFNZOlxwYXIgICAg WIRsGDRQK5BIVmKRJD8HN7 7KKLJJKGQBSD4OHZBNGSgK DB5AJDYYHVJCVSBMX5BdxX FyICAgICAgLSBOTyBFVklE KG4SVGPGZwSUWOyUVGDaBE lTRUFTRVxwYXIgICAgICAt DG3JMZarJMGDTB4FNVBUBc dBTklTTVMgSURFTlRJRklF PIMAVZGDWV1EBz9EJCXIGw xwYXJccGFyfXtccnRmMVxz l9YzH8CqPaGzRSdvcyUtZJ FlArfkehvmDZHhGDV1trZm UMUdZMyuNCPjOZpsZl6jiB UpgBqlHgUbUMPry8ekblBD NYojWbZrR486ETFeADjdk7 bnn4DtMKEibWFeq2U5FNIN sjaatGe6o2gtDmPtOpW1fE GmFYggV7lzasTraKYpA5Yo aOKadSa6kYkoY33ps4A6En mbY8ofNYTkULTfD7PpHV7t UOSxFos0NAJ7GPR9QVHqKE UaW1QoRY6hKIWwkTJtDId8 x0ynoRbxYBIpIUW1g2wpVO ggjgD9SE9kgq5xaZt9g3wo czEgRGVmYXVsdCBQYXJhZ3 HfwPmqCx3qvQy7iBkgByce BOZ3Omr5OX8aip51rwx4uZ zmUEChwpirAzO4FVacVZTq ptmeMDt0MMenRPSxpGJ9EH MpqGEqD2OnCNXnWG0arpg4 QFG5HCnvDEJiSzY8BSKetW LlAEUmiGwwOXqbf770IRE2 KrDsYV1sM3Not3Z6dU1hwS VsSATvtBEuJzLuZXPjjb3e tTYtBUecv8FaKJA4xbF7cJ XluDOhAOZiYB49Cmzdc8Rc OhcgVJB6TTXfogQxi0Gfy1 gnTbSjysGuH9ymS3InCNMi LFKsPOOhUrUnijPge9Gpr9 FfwSNcvCb4k4gwZAGqKYRq rJnjb9znIWH4WEOqB8Q4dM Ekc0ajBFglQTGdpSJ6ieV7 KNSziQBaX7CscR4hTKJyOV 2ewdx4i3hqZGI9KRmmTDXi FzY5ryM7NYBwyAHkRWBysH ysIMgan073FKJ0HfIyLOVg n5DaB5GndDhfX67vqPjtN7 6gIMVolMdukX7thLmohP5l ZjBcZnMyNFxxbFxwbGFpbl xmMVxmczIwXGxhbmcxMDMz JSqjW8hvGrInBXZtdDjmWO hgp8MdGBNpVWXyJcutydJx XHBhciBJIGhhdmUgcGVyc2 9uYWxseSByZXZpZXdlZCBh dBgaq7AuI6hfSW6bM4WefH PewuTkrpSsXIzwIXZcz2y1 sUQbpQoox1SzhBPdPG23vq UuRZZtPMF2XPOdw2cjXW18 phiqPxXqdG68wnLutsTaED Wqu8cxL5ryoVVgw5Amc6Le vtMiUFlpl1FgHV2frYNvsv talIN3GBUziEUwblWgjbI8 mUgtDDGuvX6xmU7qsUomkR 5tUiQeDmBdMPdeMN7iMNTe C6eteTVeYMUpIPGwN7bbXt WolO2wiAtcXuqzwfR7ZHUt cn19 Clinical Information (test code = [id number]) Shivani Schuler is a 47 year old female with IDA1. Gastric polyp x 6 r/o adenoma2.Duodenal Bx, r/o Celiac disease 3. Gastric Bx r/o HPylori Gross Description (test code = [id number]) n2vqzRWjYWTijBCBGXO5ZE WpUD8bgFmfiGa1zJseCCAv qgK9eADsXKjsb6blBAO4a5 hfhoYBNdanZHMqWT5vMNrx VPPsEJ1dYzIvQBWjPmHmAA BhcGVydzEyMjQwXHBhcGVy sSY8HIBzVP9ndpmzJAhmET izHEZmfnQ1FACbmSPqA1We ZMMhJN4isciyTWJ9ZDBTZt qcEt3ugZJvqYwxSuCuDoHp YXJzZXQwXGZuaWwgQXJpYW z1dM2UEvomIIV3DQWAVlkp BxmjoOzpx7CqeOXmETEcJT xcaWQgNTEwMDAgXFxkYiBP EnYaZjH0Uid1XAD5FoJ4OG f8KJJYTJHrXmndQRW6EcI5 IHv1GXQtHS3nZNynjBYoHG boJmbhKXsrP779BWluLGCy O6SkM2HgCSxpOqTcPLalTC RsUHPkGIrkFLRnW1VBSFPg NNY2ZpRfRXPtWFw2WYfkS4 VBTZSlETOnKwB3WCYoUjY9 FYo3TYQQVg3jNEpbNpOgCG r0ZGX5KEs3RkYdKOKmXxSw ZDVeCFCkUNrzxOPqPZ3otM gcNQNkPE6HUNUlAWxmRDYi YzXvF1FRC0jBPY8eMRmmhH JjaFxmczIyXHBhciANClxw QDOdIE2AMFXaZRyfGNa1nd AyMNSrWoZiTGItX93vj8GO j1EtES9NDFa1guPieceblQ 2bLWGxrsZkRYyTfCQjfG4z ymXCWWhsARJaX9AofvDwSU ctONJfeb9jgTokDCdaGwOe bGVkIHdpdGggdGhlIHBhdG xefoWgL1M0nqMhTA8nOUHU EHDwrS1dNFNtDLLnu8ZstZ UinUkdT7DldSBbXcFbp6j4 yYX4BJEahxBlUCHqzLJfZV Kmjj8hDJiuEwBqK2Q0EECz FVGmi48ezCA0lrUdUgQexO c0oTVcPPS4TK0tvPbvqeDu p9l5pU1iNQEas9T3VRHkp1 I3LGSfxhCdmRSfqOYpBGQt YB3tgfZiCY22SVKoZYsiIQ etTZT1VUC6TPTbwYJsh5kd cefiMp9cFRxfPV3zUHueND 07WQCsGPunLHUkL2KfN3Y1 SZvbIYXgHYNpbFChaD8sia BppwVxoLk9XAVhMDC0bOQq cTpwVPDeFerhlUN9GERgAt HwhiDbb5UgbEt0sDShEHya KOTdiI4gaL0qHYIpRVSczx ACJafvJFCsAKium6WpTZce cGljWHNhMzAgDQpcZXBpY0 1lm1BAp7Ajw1nsuBdwk0St aBChWE6kcYBuSB8Je4ubGU KsnEKtRLZ0NMzxr3aqONhu MJJ8BPKdTgAqAMGaLL5XMq JlKLoyNCt8ELqjRMx5IFd8 BN7COsAgGXEsUpw1XvN3Pr TiHQa9CSgvPY0NYGX6FHOg FGFuPOecLPV5WCDcKMa8JW IgXFxzcyAzIFxcZmwgXFxu I70opTFzMSkfToGbTJoikS gmVSMkBNT3NR1XUEXiNtCy C9TBM5zFDT8yVmefkaLpZD IlxbFEEhywNLPbFV3MLFHk QBthSXn3qyYbVMXwNmDvXK CwT64ih0BHi8IuLS6QLVc1 lbKszlyyzF8iIAVhbrQcd1 IzMFxlcGljWHNiMzAgDQpT oNFhcH0kdqPPQNqmJKLdQ5 FmjdUwBGrzMEOfdk7buUne IGxhYmVsbGVkIHdpdGggdG qwZCSrpXblabGuG5L3ffAy SZ2pODYWFAMhdC2qFCLhUQ FyDIZlBXTriS1pLKK5a3Gs wtVuTASDNVZvkUpiYY81sM BjZWxpYWMgZGlzZWFzZSBh lvKfwfBcu42pbnEhh1RaJU 8uzGdzONkQDKiuUsIpRO5i BAGsdlCfe2CzRM6tCHPzgY TcGQYpytycoDIfALs5pQBn YCPuPeYjqHohs8BdNIOwOK ecMA80jcQrMY2dGPgkML0t EWfnCH5pNHNqHMPdKOXiEo CzcITuQyUoqLPjYuTbK93g VdNBjWYxp3PhU6viPI1prK SgBplvkONnDHBnqOikn7Xb yDAhULUco4VsvLUmUFpsLZ 6iSJW5Hs1evCGoHDUljkK0 a5GaMOskFXCcZomaKAVkPT een1BtVTFppWDUm6SxOE4S XHBhciANClxzYTMwXGVwaW UQe9BoGPIDOreyrDhpLbEo cHPvVgO8BATxlSCrWSK6QA 7wzLlrYITnSCh8GWsbMWDw H5DhU4TgELtdLkSkHVkxGX HfZOXgDKkyHCNqM2WPALGn CGE8UaQsAFQlYUt0CHpuR5 YBBGWsSBFcVcD9MLK3JdR6 ACw8ELEKTl6qYFzoSsNmOK DkAhR7BTm0VjBgTKJjPcFv UIObXOUfWZkipQCbHE1zjM xeOAChBDEjSJE4CVQrcFPE g9RmCDTiWAcxGhWzWXNLBC ZDUA3SXqFOGSTkZjIxoJMj SJ3OMJHxqgSnUJdzkDgraS 4naUQdE1nuFnOwIbgpyFjz TmVzdERvYzEgDQpcbHRycG FyXGxpbjBccmluMFxzYjMw ZIMcsUHXf0JhQCAYPaYwTE NpbWVuIEMgaXMgcmVjZWl2 RQGckE3jJu2cnNZqqX7rtI YtSResOKSco5p9xPO1nWLk mAI2rZZsvEipQxIfIA5wgX MvHIKKXN56wITqqxJsDZGw wC4oQBYvNVPcJVJ5qpjdDX JMLJX0tIRkr8R0QHxeFLA8 cK6dzWriEpYuO5L5MMWmVT Iod92ysVR3evQzRvGzRZTx sp0mhX3eSQjvclUvhLdwjx Jfr4Y2PHKab8F9AGEesnGd hPQqdZVvTCByQpE5OCFdKi Q4XAYzDEYywQJbJGLsWR3z VGhlIHNwZWNpbWVuIGlzIG SbpOCkbeZjYBFmok41K5km DGTbsD8kb4ifCmZlOTRpUM AerHBluUU0EYDsvE5uuA12 sjCqcmQRFF5noUUxFQ8IBP NiMFxlcGljWHNiMCANClxw JTIfVBytl3PgBDuewIswKG SbJcViNPcFvDjmJRDSK9hc oSVmISoxPCDYQOkXT6BCOD 7EZXOhjAWUHAZ0HX9iPDmr HQCtD4FtT7UvenX1k9uxqP qtr6HzxRBkKG4yeMMfMM1B XHBhcmQgDQp9 Disclaimer (test code = [id number]) z5topGWzCQXps3lqAVBkpG FuZzEwMzNcZnRuYmpcdWMx HRjkfiBvIHorh5WfI9KeSn AwMFxhbnNpXGRlZmxhbmcx ERHaKLS9cvDyWSDvKUavUN HxTBtnEa8ipHKykPljHcOp PCHmf9hpwoDZHDepJiTgL1 82UEKlBGrmt0wih1BhZRHn qVYcg5I6SHZJxhjyzNq8uP igA43fc8D4HeptH8goQDAs DFSsE3WiVF3yWRJfGqw5UN N4AAZ4PZPaIBAxU8VoMS8k DYCckTFcYHl6r9yldXjlXW LaTLK6q8qyEJhgidGwBB8d ta8lsZr6w4cullVkQAAyKE YeaUQNIXKnV8KjjTlmZs6k fJj7gTwpQesyPYW3Qam9ER 7muo65igv1rObwDPOhhmkg ZtN9SNvuHBXtmzgfJWn4RI jpJDAplJX7NVZvmJJeN2Rq IBSyNX9lbrw6RBG9FKzpVQ QuSeE1PFTycBDyCKCjvDvx YKdoc727VKC0NuTfTF3pX2 Klq2B0hY4esJDiYFOcgPIt VhYsUTXqix0ipRUqNBncs0 BeSPJ2cmJ6mRKmxRMtYYZo IQ17Shjun2NwUisif0UhA4 6anTH9RGypg6buBU0kHgB4 saNhFRuvk6lruU2fQcD0XG kwHW4hVQ8aYCUuiQ1irikb XHBnYnJkcmhlYWRccGdicm NsMd0esSerKEU2KGgxC9oc bT9zMuH8LGgpX6bksH2xNW j2KNfidGT9OUPhpZ1dXQ6u njnay8huDMdbIPjvVRVbks T4ahC3LVPtaHXuT8NusJ6m PWRcBR8fyldht2ykQDL2IY ipAQLgVBE5SzXvAAPmz8Nf oyo8ElNry6QvzOOpNXcdE9 8ax440VYFnbtRbO3phgPAc zaarzDMbejixSJhvleD1KL ZineJpo3GlSQGaMAZ9KLkc LGjikXZiRADmqElhc4fsS9 RscGFyXHBsYWluXGYxXGZz MjBcbGFuZzEwMzNcaGljaF pcDDqnPwEwJBHdEVjnW0cq NgJyS1QyGOOxBzOwhCUlU4 ggVGhpcyByZXBvcnQgbWF5 PHuwR9d6LGRntdKpiYk0ov JsCsVlIRXeAWV1PIasnTHl BFXuq1XfxqetnXUjPk6xbC QdJESjqI4hVDAbWFGuGHfe GX4dvFn0HJIXcIYtpJKcEe KLLLAmIZ22keCgCUKArley h4R5UJlmBZKrm2LmhQFtZ3 xxu3GqZYXoa61fTP2ae7S3 p7hfCTV5PJ4xt8IfRDJsyK VahKHaWGHzp7Vtzydsj2Vm RWSkytHbo2GxSMRhuuRhgW QqKQApzyNjcc6prbLsHPZr VCTsL6ExtekpnHoctrBqSJ Uhqd6uwrHgTOF7ZLVRRBYp VDSll5NlmW3bgINRKPZ1gN Smlo5vybAIxHJjSRAmlm03 KMAdZR7iT3dmONRqYFZuji YptPGht9PyPPZmeXT0kHBi KM0YYhAIg81mLEBpYJSHhz EtWVYfjYfcpOH2xfY0bI2h IChGREEpLlx+IFRoZSBGRE LrUS6hveUkk6DqceYlbBuo GQGwaAYwc8DgqEIay1UxcP dyg7PkqKKmgLWfZL4kQMHb clxwYXIgVVRNQiBMYWJvcm O5x6ByDKUmXWIfLXJ3vZjk exc4TXZphP3tXYFzC0iywy frWFqgVVQwv1TvhO0stTNC hAUod7VbdHFxbXEDiAVuIU 6gilGiGQaVAIwZRDJ9eyIb DTIsm0NpOJqkO7saG62kfO xerWv8eSX9LCL0lH2gAtd+ IFxwYXJccGFyIEFwcHJvcH MmUHKkkRgfatWgZ1PopnFw uA4hmTGigwXuQO6oBD7oY3 F2wXEtXCVdplMhy7zvLOnd dmUgYmVlbiByZXZpZXdlZC Zde8RcFThnFNP5UXqwfmKe bmNsdWRpbmcgSCZFLCBTcG NebXGhXPX2NSzhzzLprdTs IY5qtS6ixQcokY5nbBEnoA L7mkqbXUDwZCQbaUspALUt SM0vgZvkeF3jYaTyYxSpTV crVY1fFEZgW4lydZUxCAXr DGZfL2kxAyNivS9raQqxSU xjZjJcZnMyMFxwYXJccGFy XHBsYWluXGYxXGZzMjBcbG FuZzEwMzNcaGljaFxmMVxk ZvJbJCSxUYdqP5oeTaHrE7 EtMUXgMnYnjNKjX3ouYXpb JLZ3RDQpHJ7dnPZfPE80fK Jqj7apFJebxAmzvc3mF99q uXJrJUdqkFetTTGdk17ef3 JoKBJcylSiaj4aRYUrywD0 sH8iBNHbnTscWXVmxKKpDG Xyg1LoUOrwpANvdkQrNOue CJEcZIBlcQVwwkW5kpSyfj AekuNoRUUdwVhzUNYkv9Qd EUAcWNedg9Fsav2cjYDmGW BucoPBvYrdzISglE9hS1Os YLSbXSDyje4aTEGmkR2cYE iae3PritowFNPmHLXvXEFt qdEgyy5tFYDytTQQND0LDF kyyLDkb2TkduQjG4zPVQL3 NUQwNjYwMjgxKSBleGNlcH RiHTScpn06POHowA5wjSju NDJacG5fjD0mrTytpF5hEd LtFtMrGDpuAS0nELHvY1yq yKAxOUFhMYIhM2lzKtXtiL 9jaFxmMVxjZjJcZnMyMFxw YXJ9fQ== Embedded Images (test code = [id number]) [facility] [id number] 19:23:05* Test Item Value Reference Range Interpretation Comme nts Case Report (test code = [id number]) Surgical Pathology ?Case: [id number] ? Authorizing Provider: ?Dominic Keita MD ? [...] HPylori ? Final Diagnosis (test code = [id number]) [id number] FuZzEwMzNcZnRuYmpcdWMx WBzkvdPpCNxifXieBLP6EK LgRR9dwOlutBi3fKpfQQSf idG6dIVmEFfye2ogWFE8d0 rdnizkZIPmIGgpFe5uqWXv zHsxKnKfRUNxQUf1xA38HE IbxF4gtFOrRAm9TRVjiMMj jeXwVtJiIZWepQPimKH9KQ RgYA0zouucONqlKHjqGUPj tvQ2PHHctXUyD7HjRBKaSH 5pqvfzOID7JGnuEGAdUKR5 VtVpOIEhe8Gqnzw8KiImfW FyZFxwbGFpblxmczIwXHBh gbUTQgRMER3GQLWYJGPHM2 uVVWLUGD9SBLHNEopidKAs ISOeDTHgUQHGFO3RWUKqK0 eJEkPuVJ0MKEXmCUJaxWCd FVTocpAFUwNTPB7JII7CGJ wgQklPUFNZOlxwYXIgICAg PVQtYDsBS7BUYEBxSBMNU7 WKGUmQQQjmWq5cYOYTYN1T C3oIJ8RPQDEWMB8MVBkeVJ FsCNNpIKImGV3XVBhiKCIS YH0YAEZDWGAJBLhQLZBTWP VRYRbAVACFY2FOTZiBRXIf xeicEIWyXc4bL7SGSKDQDK wgQklPUFNZOlxwYXIgICAg ZQGfJCARE1FGUmVDIF0WY3 4HFRDYFPVGMZ9FGCAGLFeR EI1UXPIIANOWUWGBK2UbtQ FyICAgICAgLSBOTyBFVklE AD9QNSKVEyBFOOcUNEWwTU lTRUFTRVxwYXIgICAgICAt MG4QNEfaEJERVF8DSKFJOd dBTklTTVMgSURFTlRJRklF LDGOXREZOZ8BKz1MLJRPTt xwYXJccGFyfXtccnRmMVxz d3TuL6FwZeWgFLuelmFbYX FhRrzpcyoyBDWgJUN6roJr BUVePNbuRSDjSWqxPu8wxC UslGogXhMoARMsu1vjpvRC MXdsEmFwZ365MOKeQFmor0 cjs8ZuETCueFBlw9W7FQSR hhsciGn6h4biFeAgQmK7mL KtGFnmY1oklaEyySSnG1Je iYXxxUa6sUzfA20ca2G9Yb aqL5jwLOEuXFScH6XqZN2d EDGzDsc8LLH0IQM1GJUcBX NpZ4LxRF7bREScwREyPDd9 q2jujSzeDXFpMRS7v0epWC aqdvN1FE2ymh0ngCk4j1nk czEgRGVmYXVsdCBQYXJhZ3 EieEupWu4nyYy8gWqlYgnz NLG4Cet9SO4oti85msh4sI szWAZntomdAqZ0HZapPFCa krywRVw9BUxrZLDpnAS8OY GjkJWwN5PiKBIwVU9tlmk5 CQB2EIzzVWBoOqE4WACuiN VwLRUulIemGOrts106VUX3 ZtIoVA9iH1Zfr3D0hO1yaA RaOQZxfGBcQzIgAPWavb9a hSTsWSvfo2RmSUL3qtK3nU FuoSQvOJRtSV58Sfmis6Gc RfkeLPV8OJDocrUxx2Dud5 bpMsEkvhErZ6ukT0GaPMMc MTPkPQNzMgOuaxVbr6Onh7 RnlUDboKi8f6oxTAEyMYTf jLbwu0mqWSI7ZCSoU8X9rH Rfk5gkOAeeYIJtvWW4caR0 OXXioICoR8BekC0zLSYoNO 3iirb6n9bxRKQ9EAqzZNXn KxI3pvT3SAPlfFScKYMxjE wjXYpvf417UWI4FkIsHRCj n2HoF4RwuErrA30oyUwlO4 5rWEXkcFvjwX7rnVvwhK3m ZjBcZnMyNFxxbFxwbGFpbl xmMVxmczIwXGxhbmcxMDMz NCtuK0ajRnZtBLKpuHatAX oax4FuXURyYHWrOkslkqLb XHBhciBJIGhhdmUgcGVyc2 9uYWxseSByZXZpZXdlZCBh lQgiv9OqR5leOE1cS4AnhT EzmaQhukGoFYayVXNqa1e6 zBYlfHrwc5SwtDRrKP72yk RuAWWrTIQ3JJRza5bjSE05 vghgFsVvwU02coPhswNxPC Kpm7fqO2ayoEQfk1Sdi9Fq uuMpURzkg7SpBB7ypEZwmd gauEX1QJIqwMGhrbFsmkT3 tKplQQBkjG9jfO9xoPernO 6aZuKjYxCxFKpdUF3kWEGd D0qxlXVqTQPhHZIwN7uwOg FxhT6qaEwgRfxmdwR1HQDl cn19 Clinical Information (test code = [id number]) Shivani Schuler is a 47 year old female with IDA1. Gastric polyp x 6 r/o adenoma2.Duodenal Bx, r/o Celiac disease 3. Gastric Bx r/o HPylori Gross Description (test code = [id number]) n3tsyXQaZKPjoFNNTAL6HV TrFX8lyFpaaYr7sLjvWMDi ufM7rIChJTnoq2pkLOA4w6 wwquMKSfnuXYJsHX7yCNnu SHAxFQ6jUxSgOZQkXoPyNV BhcGVydzEyMjQwXHBhcGVy fTC6LAQwJN4dynsbQFcyDV iuEKZroaA7MYZcoUGkO2Aq ZOIoDW1zjiwhFEG4PHQRSa zaEx2jhXVbnOaqDfZrIuQg YXJzZXQwXGZuaWwgQXJpYW a6qD1MTyvhXMB1IWKHGloh BsuscGhly8RsnGInXPOmYF xcaWQgNTEwMDAgXFxkYiBP FxMsFiB0Gxd2FVT4YqP7YM a0CRYAGASuWciaYUO5AoZ4 CPx4OGFzJT0cKIpllKPxMH mfHfcpOMkxU599AFkaJYYf P6FxA3QqZYueJmDzZLbzTG DhQEGpLVbcFECrU8WFAGNe WEE9SuFeYBWtADf0SRmbA7 LSIZLdAHPtDpM3GAWhGsR6 GJh6KMWQEh0cZSktXhQaTO f9RWB2FEf4HyAgHBWyZpLq MHYgJLIgOFanlVQlWI6rjX lyNMMaSD5KOYTbBMlgWMRm YkPkG3OND2oOBD2yRAwgqY JjaFxmczIyXHBhciANClxw EZUdCV0IKPCeIOtdAWc1xv AmJBXfLhJpKSMyC04wu9UI x6DkVS6EIJt8bzGxuaqnzP 5kKQPcpjGsATjPdFMpxT5d ycQVRAkkNWHnH0XlzfUgNV zyZZZuoe9kqPjqFEueMhKq bGVkIHdpdGggdGhlIHBhdG xrxeOoM8I6bqIeXS4hFNXD KVYxcI2xPCTiLQElq0NmoG VjpJoxT4IilFFhNiWib1q2 tOL1OIWzkkQqOHZweDIcFM Swge1bDOjzLqTkG3K1TWWr CYWtc88ycUS1vtDoQjSviX e4iZOxYEO2DO7ekAucgjXh a8c9iQ0nHNTwr4Q6VBLpo9 D5DVDmgnPkuTYejBAlXJNs OH4jhwPxYF61PGXvNJyjGD paSMX2DPR4RJWdxLTar8zc sazqMg3vBAdwMG2mLChzFM 20VHNySVxkZLGlJ1RdL8Y7 AMziBTJfYCYlaOYymN5uha XpwgKbfLd5OMKsCIE3hYBw wCvgKWKsWljroBB2RFQbDe BanhGgc4OojCk6uFIaPMhw GRXswT2reP1oAADoTEZcvl KSUtnrBQIyIPvla1BwFWvq cGljWHNhMzAgDQpcZXBpY0 9od6SXl6Lfg7xkeYqmr8Ha tWSsDO7txFLaVO3Am3rwLY GdePZjWYY7MWheh7prSDsk ORL7HWDaUcKpMVFzDV4JGg NhOVahJAe2TPzzXVa9IJm0 WK8HFwCaQETqDyw2McE2Hp ReDCk4ZDmkPC5BLEA5QZSa JOKsDOxcXRG6NKWpCPy8MN IgXFxzcyAzIFxcZmwgXFxu V52poOGyFWrzYwAyBChimP hiGHCxSJI9VG8ZNKDxEvLo G1BGO9qDZR8oVevyanScQI PqdhZMAlztHVHcZM0LHZAn SVlyCMp0zrWhAFFdZhJvRZ JeG41rq7ZLm5CaYQ4NMFn5 hpDgpyjeyL7xBHMdmmJzi5 IzMFxlcGljWHNiMzAgDQpT qJBtfJ7ngyVQIRjiSJEpO7 OnviWaILzgYVAwvf5otPnn IGxhYmVsbGVkIHdpdGggdG faKQZhjAwusmLyC1P3enMf UE2xTKWAHBMouJ0yBAGtHC RvQXPiJFZntI4tOBP9n0Ax crIrPFRWWRLroOjtMR85uR BjZWxpYWMgZGlzZWFzZSBh vtTyxkIwl01sraVgy4IiYN 0ifDxkUEgPHPwxEpTpNM8m DARtjeBwr0VkAK9oAWLylT RzKVFucpzwrNVkYQd7oGZp HPZaTsBszZqqa2BiBYWhYN anGY86xuZzIJ0iKEunLF3p DZiyDE8zKTFjQZCtMRXsHh ZsaWKeGiVljMXzBgKwP02g LkNVpJQuh5SaU8dbBB0orR AcRgfarVIeCUPxzSvim5Ee hAThBWRot6AbwZBcSFshFG 9jZOT3Lo0idTHjJOOlecR4 h9XnVPylOBQyRlluQSZwXU yut8IlVFHkzYAMl1GgIH6L XHBhciANClxzYTMwXGVwaW KVm6DoYRJSTctlwDsgPcPw bVKzUdX4XDXleXKxVLD5UG 7ndZtgCOJtILl3JSdwTQTd P3OzC6IsWYalOwKwZRlnQI KeLMWuPSoiWAXaM4WNTWTs KVP9FqYrZHGsITe2IZdvL7 DXFEKfFUMwEsX6WTV6VlM3 AVv4QIDSSr7pMMmcVpMiOI KkIlJ4LMg8IkUoYVPmFiBv YRTtEKHdDTjlrGBnCR3zpK wiFXYuNTWlZSB4GMHdsQQM d7YhKRZfVAutXaOgZEQXIP TUTP1PBgLCLNGeMaJpfRXi GU1RUTIhtoMoOLkorQnhtT 1abAMxV6llEoPsFhqbpDeh TmVzdERvYzEgDQpcbHRycG FyXGxpbjBccmluMFxzYjMw MCWgcRZWi9AdZHLIQyYtPW NpbWVuIEMgaXMgcmVjZWl2 ODKrmR1bQs5juEDpnL7cqR MaHEuiOJNgt5m7hZK0pVEx uHM4fSZuiTpsQrPbLK8ueM FdSZJQFX69bOJxzbPnRWKo uV4xLIOvQRVsEGS9fvewBS HNMDH7cWGku2H1DSueROI3 rI5bhNajLjIsL1Q1DSIhKH Uyc10noSA1imCqBrNwWFSb rp0lpP3gJAzyhfSwcYqypt Bsh2U0AHPoi1Z2DOFwnsAp jILmgQUtAHXsItU1LFBxAm H0AKGcRSBnjWMzBIXyCX3w VGhlIHNwZWNpbWVuIGlzIG PhuHUmwqHkIMOzkg51C0gh QNYleR1hi6lwHgLlTPYeEZ ZnpHBbtOM9JKSraL0guL52 guFaicLRSI8jrZMoFU6UHA NiMFxlcGljWHNiMCANClxw VHWqUJccw0WaMTxzzFrnSA ZvMlTpUMtHmZspSBUZW9rd hMZgEAhjPELXQAyTB2YUWD 9YDWEvdUDNITM2FX1mBBsv LEScJ8QgG1XmtbJ5w7dsmE wpp0UxvSXwYR2mdKDgFH5N XHBhcmQgDQp9 Disclaimer (test code = [id number]) x3upuZWqWKZgc4kaGUGhpA FuZzEwMzNcZnRuYmpcdWMx MOsqphOmCZjhw8HdD4DuRm AwMFxhbnNpXGRlZmxhbmcx WSIvKYM1ntUiHOIcWHemLT CeVYavDd3ehJJguTrmEeFv DQOqw8rpkjEGNNrjXvPeP4 21ZZIlJAwfo3gur1KmTDKi yTWmc7C2VHZYxbuemMq9jV hyK95ng9O7EgzbT7zmVZCe PXDoG0AeCF4yALNrJoh5KG M3SZF5OQZmRBIeC9DaUJ3g ZTEbeEHsEDp3b5cgoYjgFW GkPNL7n5vnOPzsztXkVI1z el2igEj2x8axtvQyHNCrMN FrnQBZRESzV0WrcGsxGv5p kGi0tYtiWzpkECJ2Vns3XF 9wfs61cff2hLwpSHAsjubc TiV8OHemIGOvbuddNMc2KC wzHIXogOL4YTSuwPDvI5Ie RQYjSW2occe6OCF0QNixBU DaVsR2WLPwyWGwRSKzeTrk NPlys080SCG3ZeUxOY7fX0 Zwm1C1nF2xhEEoDUNgsDOm XyHcPGQyme2wkHRcSCljb6 JxIXE3byK7bJUfnGJbJRTz AM15Yfcor7NnGoqpm9GcE2 4feFA7OBchk0veZO0pXtS9 etCnYZddc9sfzC7hCfJ1OB zjOS4bZU2tXALtdF2frigd XHBnYnJkcmhlYWRccGdicm QsEy3wtAnfBJI8FRyrQ3ad cE6pMpK3JDbdT4ekwR8eEE f3UPyhoDH0HFCmcW9eRB7a ntvqn1zmUHayZJysYHJrzk Q2nuW0JBHlmMJvZ8DqiG8s XVMvDN5ykethd0bcPFU1IN ofOGAoAQI8ZaJrLYEyr7Mi bmv0LzZnv9FydMCzJPfyY0 5to503MAVytkScA1xbvHXe ooaioKFlqchpUWidiqZ0SZ HqitThb9GsRIUpIJG9DMyv IWxicDDqWNJeeUaud8pkJ4 RscGFyXHBsYWluXGYxXGZz MjBcbGFuZzEwMzNcaGljaF njZGiqJgPrKXGsEEneV8nd TtQaD2RsEQNxSnTrdFImL1 ggVGhpcyByZXBvcnQgbWF5 CRzcW7t9XTVudrAbiAc0kw EfYsNbBQDvDFF8OKkkxNHt WGOax0GhdzsmcZSwGj3xeP GtBFGkxJ2mFNHkXUUoKTmy XE0ahXs6BUJFcLIhdFEfPj INHVIuYD22bxZqAVVVenvc g0J3DAcrIQCpo3IhnKUrC2 seu5RvJBDbs20xJN0fm2L3 g5fiMFB9BX7ek5OeMNLqyT DvgOYvOZDmm5Iojajlm0Jr FSAgufOks5QxNLIaeeNnrP IbYEChgbJoym7bomFrBQJg YTVbF9QnkhopdWxlevFwIH Sryg8bgvTzNEJ2EWVMDCHi RQYwl5FzgB6mjGOMNAI2vC Ayeu5rdyKNpYBaMUBkvl09 RZOcMJ9zP4gxXQNfETPzzf CwbSFmp4MkLKEdsXC5yDGe XS7ILeTBy86pSTJzTMGIlu AgCJSwqSvkcAB6mzA3aB1y IChGREEpLlx+IFRoZSBGRE WyQY8uotNia1JnyeAdoLlb BSMomHLud8NygXUwu2ExlT nfc8UndGPznGLyQM2iAHHi clxwYXIgVVRNQiBMYWJvcm L6s9MoIMIoCZZvDGX7eJjp hex1MQVcmK4zJSShZ0wcem kiTPnmFLIvk9WydU7twDWZ oXByu5JwrPNhqHWHyDCtMU 0czyIsGSzAYLsCNSX2pzRc IZEtk7WrNOgiT1bgB56mmB ejjXo2mEW5IAA2fM2qRpx+ IFxwYXJccGFyIEFwcHJvcH GzZYAxjVmhlwOzY0QycoHs kI3rsWLafjMjIO3zUK5hO0 I1jMFfIGLrwnDem7ozZQjq dmUgYmVlbiByZXZpZXdlZC Whj8PoPLrdQOD0EMipueTs bmNsdWRpbmcgSCZFLCBTcG ZldMDrVPB5TLnjgvRvixYz CI6adU3ypTpluP8dyOWhjJ P8ndufKDKsTBOquXztWKRe MG5aiKrglF0hYyUmPzBtXB ddSI2oJVYhY7vojBIrMPCq SFYaD1dqSwLvxE1maNehPS xjZjJcZnMyMFxwYXJccGFy XHBsYWluXGYxXGZzMjBcbG FuZzEwMzNcaGljaFxmMVxk AhSrQGWtWBxdW8jjPmWyS0 UxPWGdCqUgcHKwG3dtRZjt FSZ9SYNySA5apVTjLS04uV Bia5pgKJlguUjmtb7uR46m zYXrTXdmpTzhAYZub48pd2 RoWPFtvrGdpy6nFDWwwoT6 qM9oHFKxfPwwKFFezYUlVL Kpf2ClXCdtuBDqslNyIGsp DOBdREKnmQKpymY8jzIkvb XbolPlEQTtyWuqIWUrw3Ij WPMtCHpte4Pxpa3opOQoFK UiuvDGvVlzgQEkfI3oW9Rl QRZxQWRfjb2uCACypN2dJS yva5KtmxzkOJQyQPKhVXAr egVczd0fUXQpeIHFCA2CDT xbhWYgk3ZihpHdP6gXXFC3 NUQwNjYwMjgxKSBleGNlcH AgEOOuyf84POHumM9slWdy AEVmpJ1hkL5mxMqayI5cNq JrGoFhXGxzKY8zBZIqX7is cUDjNGNxABZkT3ieOrIisJ 9jaFxmMVxjZjJcZnMyMFxw YXJ9fQ== Embedded Images (test code = [id number]) [facility] [id number] 19:23:05* Test Item Value Reference Range Interpretation Comme nts Case Report (test code = [id number]) Surgical Pathology ?Case: [id number] ? Authorizing Provider: ?Dominic Keita MD ? [...] HPylori ? Final Diagnosis (test code = [id number]) n9uplVKqGDZhl9mkIAWcrG FuZzEwMzNcZnRuYmpcdWMx PIpiyvXsPYjinZcbMOC7UA LjVS3ziOsxbTl0aDqsJQGl hdC9aBIjOGdax5hiKKV2n2 qoobwrIYEjEIjvAo2jfIMy tIxkCxHvZYMdIDm4yK04AX MidA2tyOMzODo3ZUDvfARa gyKyIpGuNZSauDEqxQP2PG DlNZ8fokwnIXijWKljFQLx vaG1HJEgzKQqJ8QdLIIyUV 7pitswDFY3KRlrWWDcUDU1 CmIdAMCqh5Koyep9QtTiiL FyZFxwbGFpblxmczIwXHBh giQOYlTIAX7RNRCPUXIHS3 lOCMYIPN7ESOYCPfjdqEQe ISNqBJVdGHMSSJ0MPBIrE9 jDHnOkZQ1NKRTsAHPajNOd OFQnvbDOZySSVZ6UCC5ABM wgQklPUFNZOlxwYXIgICAg UKHrYNdHQ2TCYVVbHPQHO6 AOTNvRWXoaJe6dEPOVTP5T T4hBS7GAHVDMXT7XMTrsQS MaRMEaDLCcYS7HITtpTSVU CK9QQZHKONYXDLlSWFKGGZ PCSVxZTRFQV8ZGHPjIATRu ubntIZZdIb4fO4BYQGZOTI wgQklPUFNZOlxwYXIgICAg LXFiCKSLP1ZNHqAOGB9CH8 6HUFNKJKMMMV6FJKBJQAzQ YF6ZSMPPQXZXMNVQQ6EuuZ FyICAgICAgLSBOTyBFVklE VE5LWRIQNzIHQQpDMTEoLF lTRUFTRVxwYXIgICAgICAt IS2TBVuoEAEIYB7QVYJUEr dBTklTTVMgSURFTlRJRklF MICOJOUJZR2AHo7VRYFMIs xwYXJccGFyfXtccnRmMVxz v8IdK0KlQwAuKAellfVhUA FnChmdlftiSIDfXYC1voPa CYHyNKyrNKAwDHcnMp5knH YzxRhdLpUkXAFxd3vblyQA KVcpObOlI605QYPtGUhmv1 tdu6YfXTJpxHRbc2G9HGNB jwdzjBo5y9wuJgUxJrF7cI GdGBkgJ9agjkPjdWPwP2Eg zQKhfIn2uPseD47ed7C8Qt sfG7bkRONuRRPdE3GmIN3a IKPzOfe3LCJ4OHU8HBSlIR AvI8DeNQ8pFYZsvMNzXOc8 d5mcrJsrQVMgOHB2a5okBA qbvoR8GF0tup1lhKh3g2nl czEgRGVmYXVsdCBQYXJhZ3 TrbCbiVy9xzFx7vNvhJnnk SVI6Xtj6JM7hvb71cza4aW mmLPPlichkQiD8EYypHKYs jnbmWYn4ZKnkTTSkcVU3WA XsyHPoP9VqXWTzEZ4vtzm0 JPU6YQdmCSFsRsL8NSZcpZ RyMWWuaImxZEsat057SRX7 CsSnUZ2sN2Svf0O1bC7yvF MgWSRsiRLzBtIdAAToro8t gIQjLFouk4NiMQG1nnZ8nY ObxQWxXIXdYC22Fgjrg3Ht ZikvWFD9KMIspmAia1Qjf2 cdVyOaivXoP4fdE2NmSZKd KAIzLVVqSdJrrwGul4Uis7 EctIFzcIk7a9fqTDMfJIBf jGooj6bgUZI8BVRuR5J4kB Viq6pjCUyhGUMjzAD2wyH7 WQWquQDwA9PqpP3dMAOqZY 0ctkn9x6wdECJ7XPpbZORp OfW5ruL9HAAuuKKfOOVmfE ksRLthq660MZR2WoXjEINu v5RpK0TmdJgdL24bmXoeG2 2tYUNehGxaoI8kuShblS2g ZjBcZnMyNFxxbFxwbGFpbl xmMVxmczIwXGxhbmcxMDMz TUxaS0cxYhPgAXGsbOaeNY mmx9BlBPUjJFFpExehjnXm XHBhciBJIGhhdmUgcGVyc2 9uYWxseSByZXZpZXdlZCBh lIvwi2NxK6efRO0pF7BmxX AxpaGukoTmHIqvAXPch4q4 pQXpdFwwu3FfqBUgDH39py GgZLVfIAS5WQBok7cuRU82 ozatXkIjfF05clJfvxVlMJ Waf3ipF4fzbETxr1Rwi5Ay owSrASgnv5BgXM9doZUsyt lveDK7MRFigZDzkzPcjtB7 hOfjNJIiuV7iaD3rgZaevJ 1bIoHnLrIzOTjcJQ3zIALm I5cbaNOuKQDeSHQvN6wkWr VtcI7mmNfrSnahxuN7FABr cn19 Clinical Information (test code = [id number]) Shivani Schuler is a 47 year old female with IDA1. Gastric polyp x 6 r/o adenoma2.Duodenal Bx, r/o Celiac disease 3. Gastric Bx r/o HPylori Gross Description (test code = [id number]) x2ciiJWjRIXpdTPSWOR5HV EgWU8xwPtnxAi5nDifWVSm hpA1pJBtUDgdt6cvOFY2y3 nftcAYLhpuKRLfUJ3iITsg QGLaOW9oLmKpSISkWlEaCJ BhcGVydzEyMjQwXHBhcGVy eNF2JQGqNH9mqfnmSIpiKP wuYTKgcyC6RITnvPNyM0St QOSyMC4kggonKYJ4FGHVOq dgWt7hwAYrxDscQfJxMnNh YXJzZXQwXGZuaWwgQXJpYW f1wG4MIbzsAQP1SDAPRubb FdbvmVrgf6UlhTKvHLKeGS xcaWQgNTEwMDAgXFxkYiBP JoVuAaP4Kmg1GLY0JdE2NI p1DGYSXTYaTyxnPYM0QqJ6 ZEl3KEBfMA6uHCnrkPSxHM tbPtydEXgyP174LDfmPKNv E8TjU3KzCIjdSzGfHUukYR QuEPWpTLvmUWPqZ0SWUVLh XNF4QeTxQWMlXJn5RNonF9 EGGKJdAOEsUjZ1TOEuVcW4 DHk7WBPDNe8bAVspWvRpZG t9IOC8ONc6AfIcBJIhDwNp AIUsLYDbDDcmdFLzJV4wgB kgMPVoAP2XRLJvEEddXIGr IiBuU1JTP2uYDL7gVSoieI JjaFxmczIyXHBhciANClxw AVXpBC0CQMUgHHmtNTz1nt RaSLIpOcMrHIFmW02lt4YQ t7EaDZ8ODEa8yiPbttuczR 0uBZUlszQjGThLqPEmjD4b yyAVYEcyLEGwV3QerzOwAE ybBVWcpc7kvGcoSTejKvIj bGVkIHdpdGggdGhlIHBhdG icbyFcL4J5qiPdHT6dDUNX BWJdoU3aSMGnFJHjx5OnbT ZkeOfnD2KirCJeYtZfr9f0 oMT4XTHwqhHdHLVwqNIbCA Ydqr4xXYgcUrFwF5M8FMEd BYRya39axNI2jlOhByVhqA o0eOIyACS1EW9vuXbrizSk n9t3nS4mDOJra2A4VYYml6 V1EBTalvOpjISeyAXmVLWe VW0fgeKmIU97ORDkFCriCW noDZD0LZO5TWTegLJei5hf tccvWz9aTWmgRK8iPIpfXP 98IGBmSObvMIEkU0PzW1P4 ETrbUJFaUFAxyQIdmH8iyk RnhsDvvOh4CYZtZBI8cVUu qLugZUEgCcxdbYK4STIoZq VrauGjg5GxnCc4uRIcLGgx AXLmqZ0bsB7uBKXiZNAqjs BUCfbrCEUvKIxxq7MrCOma cGljWHNhMzAgDQpcZXBpY0 2if4HWx4Dzp4mgiRmml3Zo eDEyRL5usCZzWO3Yx6szXD RfkEFwSUB4ZKoqa8zjUCwc FXN9GLHrFiRtDAEbAP0NAs TzHHdlEZr3XFlyUWs8JJv9 JZ7ZDbZpXFHqShg8XeA1Rr DbDNv8EIrvHN4MYTT5IUAr YHWrTZzfWPL1MTYaNPi3OJ IgXFxzcyAzIFxcZmwgXFxu O63ocVNhOHtpLcGpLZsyfB abQAQuAYY7GF3CCFCyVnNy T5VLN2oIMI7vFnibrqKdLH MsyoKEFbelFDAiIE6FTRMa AMqzLEs9dbInHBBoYwMvZB EkF82tv8HRk2XqJN7VRWz6 uiOurtevmL0uIJZbyrQyv3 IzMFxlcGljWHNiMzAgDQpT vFXmeN7deiRJDGbaDBMzC4 OkrlUpSPcyXAJdys4jpXcp IGxhYmVsbGVkIHdpdGggdG euZQUufWcrgeGuW8X2lcMa KG0hQLRMVEWsaS8oVPXzIO UgIJZvAIRipZ7fQBJ5b1Eh wkDeMYCKYPKkkJxnMZ84tS BjZWxpYWMgZGlzZWFzZSBh xxQhdsNir21euoGku4TvQA 1wuFdePZlCKDjxTrFmYU8a HFOpahLpo8DbPO1gVYLxjU KcBJMianuhoRSzKVu6dJIo WRKbQeNezGpwl4MbVJHyKG fmKE08vpDeFI6kOJawVU2n NJzrLU9iNWXbFUKmTRFgUt MvyWYlZcXaiBSkEuCqM58v HrUNgAJad5OfX7eqBE1tsA KlCioqiAPyHCQpcIsfe4Wh gAGoNYLup7EdtHJhSZsoUY 1rJLT6Gv7kxNNwUPAgyeD7 h4HuBAxwMEQuPccoXIJaOE gev5LdSBQtuFVGj8YqVP4I XHBhciANClxzYTMwXGVwaW AVx9YnWFCFGkctyFcdMdXo dTTmTvN3AXUyzCDaVFD0GI 1vxRcrUUVuMQg4GTxyFVDb K1GyT1UpIAdcScTwZFhkMW DyXWEjDDbrLWVlU2DEEVTa AUU2FzSbMVEcAGq4TIgsB8 OBZGBpATSsXqB3PRH9WwS5 FMv2SPEZFv3fGVwfDpPdGO YqGbC0PMd4DmYbHALuAhAq XDRgLHWrLEuwvIWwAH2tyO ooHFEdUJJcICZ9POHqjWTW v2LdPOLtYMasXqHjOARDXM MHPM2PVuSGMILpSdXvqAMf OM5XPGIgsrAgLKckrKahqT 5brNVhA2jjMiHdLtjytPau TmVzdERvYzEgDQpcbHRycG FyXGxpbjBccmluMFxzYjMw BMDyvEJTx2RlMLLTXdLcQV NpbWVuIEMgaXMgcmVjZWl2 FQSftB6cUu2hlJCvvT3paN IqEYewNMSwb7j3zHI0mOUg qTU5uDAmaLdqBdRfZH7ajR OaMKUQVG84dEJzydTrHHIb sR2mGHRgGBQwDDN7ojafDA GNERI4bSTwv3B1ZCydYTK6 cQ5teQfgQiMfS9O5GEHkPT Ipj06fpPR7mgPfNcUgYWHp vu0qoX3wWOdgudDemXapfq Qlx2A5RPNpr7X0LAQmvjId fGXdiASuNTHlAzN8VSKqBl G9BGXgVTVsvILbVYSkZN8g VGhlIHNwZWNpbWVuIGlzIG NipYHualIhXQHatr96W7mc VHAdsF3eb8eeGbNmICJlJH AkuXQzhKD6HXBmqF3ekB09 fvDyboYBBN5ijHKrQG9FFX NiMFxlcGljWHNiMCANClxw YEUkCWvbf3OnZLrgpUnpYX YdZpHoYQoAmHspGSEXR4wv mRWuZEpwXFALATaZJ0DWRX 2JOTMqaZHLXXF3GX7xKBql FQNlC0PrU7XqspN2j5jszU zsi9VgzUTdZG9roSVmJD5R XHBhcmQgDQp9 Disclaimer (test code = [id number]) i8igdGElVVJlf2jmCFEokM FuZzEwMzNcZnRuYmpcdWMx SFkyloSaGLoun9ZrL8TjDr AwMFxhbnNpXGRlZmxhbmcx XPQbKFT4lePlHDKjNJxxTE YpYZyaSg5hzFYwqDptKkPt QWOdu7jkeeDDSOooFgOsP5 08OZXbWVhuv8ccv1ZbIGQy fQBlg4L9MYDWhjwzdTm8sP qdZ97dc5W5NdmpS9qjOXMr MXJyY4EcOH0dMSKnVsf0ZW R9CQN6XMSxYPYxN1FjTY7h MTLaxQInLIa7o6ofpXyqVF IcVWG8h6saOCwpjsHmAF0p md1lsZk0x4maidZnJLHgRC AgkVJSHJPsD4VklWstUr8t wFz8fFutTlrkOYJ2Uss2XP 6gmk00yvn4xQfkTVWpndrv LvY5DOzhBIRzgxsbBCg9DK zcRHSfsBR8PCZpcFGjW7Wd EVDqHC4lvix1BOW9WVhtRO IuTjM8QDUktXThKAFppXoe SGotb597AJY7PtOiFD0kP2 Ivr1A1dA4xvYCqSGYkpLTc ZcCrLAMzfm0jzODvQNllh2 EkGTD9syS4dZApaQXyTSCk QJ64Yhqty0ExZhtrw5QmM6 5ynQB0ZRbsn9zuAD3wNeN2 foLdNSwhs7bpnZ1tLgF1RD lvTV2qCE2iHOAydZ7kyrnj XHBnYnJkcmhlYWRccGdicm ZfFb5luOhcTKG2QXerJ1tg eU5kCrA6NPmaB5ggiQ5kGW k0UMpcnTB1GRGepK7fRX9c tydpp9qpERqsKXfuPDXlya F7aoK1GRYceEIpI1IreZ5y UFAiAO8bgjihp9rjNEW9SR srDRDuIIH1ToIdHQTsj9Us hnz6BzJgm5MqvXEpFZmcX0 3rv609LCLzgcPzM4nsiBTv jcvarAIiwjxrWXpmqxD5MW ZlryBrf8FzQLDxKTA1VIqd AByqfQHqQCTdrKwdx5xtV5 RscGFyXHBsYWluXGYxXGZz MjBcbGFuZzEwMzNcaGljaF weXZydZfIfMAEsJPxrI2lu BpLfJ5XrTXLuGyBcmXOjK6 ggVGhpcyByZXBvcnQgbWF5 YGfoT0u7JMSlagLwqDr4rp VeIcFvRFKrMNT2ISnvfAGu POFbo4OrdtbboYYcAv9inC DkBMXnbN7rNXXeBHMwMZsx DV0oxWd4TVNKtFMdfRSmNk IEURSdWU09utZuRWYAzuji o5F0UKpxROEat5RjeXYjR1 jsk3GwKFTfl67aCN1xf1C2 v0kvROL7AD2eg7OqENVswD DqzINoCSZxf0Decehpy3Ie JOYsksXzg8AkTGZcxdLugE GzHKJctzChua4kvoIkORCt YUNaU9QtvbcyfKgfjiLpAH Vvxa9soiJoWZD7QPMQITEy DZBxg6WqsX5mqXFFGMC8aI Mogk2utlOKhFTlUVBkfu38 UXNdTQ6vN0yrAZGuBGCeju EveHPrz9TiEYCfxZN9cIDi HS1SHeJMp20gAGYqBWLHta AgKGQcmLgkpGY4tvA3vE9a IChGREEpLlx+IFRoZSBGRE UsHT7rkiMfu0IoxgScrIll QTKmmINdw7XphEXoa9PrzZ uyc8FiwIRtfGLmTA0eHHGr clxwYXIgVVRNQiBMYWJvcm M9i1WyWLVzAUXvJAR2pSni scd6ETPpuV0gLRUdZ8jajk lwYLogKSTkx7PegN4riPVB nGTdi6HgbLBxmSIOeRApYF 8xssZrDEvZDOmVUVP6dbSp VREub1OpWBfpK4xbZ40xgO hyfTi1lKT4BVQ6xW3eKmv+ IFxwYXJccGFyIEFwcHJvcH EfTODkwTumytRgH6OtqqLr pT8sfDCtroYqXS9lWF8rX9 E2iTFqIONnrfZxt1vyRVkw dmUgYmVlbiByZXZpZXdlZC Kgm6ZzDTrbRGY7LCxtifQq bmNsdWRpbmcgSCZFLCBTcG FxcUFkRHK2OAmmljAzkjOp KN3enR1sxTizeH4vpLImjF T7zowqVBEkLCIpfIncYDFq UJ7vrIyteY0sGrKiXuZhMK ouIZ7pFTCzK0fnxBHmRBRa YJYaO3ugDjAanQ6ssEzhXH xjZjJcZnMyMFxwYXJccGFy XHBsYWluXGYxXGZzMjBcbG FuZzEwMzNcaGljaFxmMVxk HaSnDSObUPsgU0igSuSuA3 TqFMCvMcZyhRZtF0ypJRpg UJS6KTPxCU6xgCOiHH11cB Til9mzSJoiuBtqxk4nP78x uLShCYcjaZahIDYhc30ms0 RpDLPmsiTolb1lFXKtciS4 aH6iKJRrmEdrPVXgyXBqRY Snc9VhETvzeHRabwMjSZvc WUHkGYCxiKMezgY3wyWbql QspkIlXVSmfPjcFXZwn9Xb HWYtJWcco4Qhbu4rrEKqHU YtgxVHyBmxvYWbuI6rG0Wi VDVnPKPktr9uFLWpaU6fTK qot2DszjilOVMkIOEoQORw klGxzp7eXFSqqRXHPI0BNW suwFVml1UbvsBzT6oUMDJ7 NUQwNjYwMjgxKSBleGNlcH PnFPRtul49NDFtaS3toRch POMckF5inA2epLkycH9vXe DuWaDuBQabNM8zWRVuV5ef hGStKRZzBCOuD7odJjVdeO 9jaFxmMVxjZjJcZnMyMFxw YXJ9fQ== Embedded Images (test code = [id number]) [facility] [id number] 19:23:05* Test Item Value Reference Range Interpretation Comme nts Case Report (test code = [id number]) Surgical Pathology ?Case: [id number] ? Authorizing Provider: ?Dominic Keita MD ? [...] HPylori ? Final Diagnosis (test code = [id number]) e4bjsMOkOFPqb7wdYXMyhJ FuZzEwMzNcZnRuYmpcdWMx SLsclcBcAMbglJzpJFT7FO ZmYI6tqAjoeBz7eYfyQGYf spP8dZKxWZefj8gfPGC0i4 inuhbdLPZhZPgyBt7tuLXz eTknOcRoHEHfSGe1cS23LV EeeQ7anBVmJFl7SJRtvKBe szZdCuNnGNPseGMnnAF5BB VfOJ2symibQKouEMnhYHQj ubV7GIBfiJAvS8VmOUTkHI 5mqynfXIC3CTmoGIUaEQU7 ZyFkHXBxz1Todtz3TdPshT FyZFxwbGFpblxmczIwXHBh tlIOZgKXIU2FHNRAXEBIH6 lDNFVDFZ1PRKKYNrfruERr UJInDOUfRXDXVQ2QZZJnP4 bVIkEnDY2AIJTbHZYjcQFw FEMuarYDXtQHXL5FGL5XUY wgQklPUFNZOlxwYXIgICAg CDObZOrNZ0YLROHaXKTZT8 CNDWpMJFlnXc6vTZBFPN6Z D1sAU2AMUFULNM8NEAjsYI NdISIiHAGbRS6ETGsyYZBL CE3GKWDJPPPGSFhKMOIMZZ YEIVjEHELNM1UWHMwJKEIh lkoeAYEzKr0zG4DCXBZDGU wgQklPUFNZOlxwYXIgICAg IXJcVJNCC2SFFiSHYJ6AC2 6VSUVZGTCEKX9FJYLYSSyB PQ4FFCIJLFQVSGEHW4IujS FyICAgICAgLSBOTyBFVklE SL9UMZOZKfVRDPxHQNXtAE lTRUFTRVxwYXIgICAgICAt ME7MIMpmJXTPWH8DCTLINg dBTklTTVMgSURFTlRJRklF TGIHVGQFTT6LCm7YJSATBq xwYXJccGFyfXtccnRmMVxz y2VhK6RdRkHmNOwwcdMxJF InCznmjccwXSFjUNR7bhMx SZIpXStdCWDnXGqwEd1uyS NroAfaXbGiZYHvr6hsycVA GRroIyNwO294LZCrCJlkn3 nqj9SeWIPlsLAvy0C1LBED oxndkMc7b4slSiLoAkU8vA KhGWomT8ucagIntFGkQ5Em iAEriMl4wUjcF42ez3B4Zc fsB6qxWAFvPAZeE3VpJT1y ZPCkDoi9TFC4JJD5RMAkSI KqS1DzTY6eJPDbsEYlEZf2 n5peuJtqFASuNTJ3q8icBC tcmqH5MU3tvm3dlRz4h5pj czEgRGVmYXVsdCBQYXJhZ3 JteLlwYa5shLf1cZsmNkfh PGD1Pbi8SD5tsc97joj8gB yyDVRazrzoQcT4QXskWRSj tbvoQLm6VTuoSZShbRM6WW HpkDTwU0PmFRDwFI6agwz0 RSE2XNkcMATxPdV9LZSajI HmQYNarIckLTuzj795WOG8 GmEgMT6kG0Hfq5I4xG6vlU MsBQCmxREoUeVvNGXssp3g cSBnOHnje6LcJGO6dqF7eI ImiNWjKNPdDG90Niouv2Xo PxbtNAQ6UIYclcLpp1Umo5 poGqVzxiQzQ5oxY6AmJNHo ZVVaZDEqBcRmtqHtn6Kxr3 ZdbTXxtGz8g4ikVMNyVOZn yDbai8flLKL0PUUwJ0D0kF Tpm6wrAIgyZTOxfFN7vvE8 URYtbDOyW1MbyV8vNPCaNZ 4epat2z5fgCGG3VAwfEIUj RfO7dyC2UEZviKGeEUUoxN owVCukm831QBN9JvPvDZEx x9DsA9RrzHaeZ54bjCpnZ6 8kWVTteRrhjD9fhZuppF2h ZjBcZnMyNFxxbFxwbGFpbl xmMVxmczIwXGxhbmcxMDMz KCujT9rdGkXlJHHjyZyuTM wlf1LpYIByKNGwGvtlleEg XHBhciBJIGhhdmUgcGVyc2 9uYWxseSByZXZpZXdlZCBh bHfhc4VeE0wzYH4eV9WhtS GwhjGitgJzUVaiFBTxa5s4 gMRcmSlmr9KuuIIfRT85de GiDXKwJEG8CMPbs0ebFX24 hgpcCpVrbK04qxUaxvZeGN Hax7maD2plyGScq2Psx1Od puBcJPvpa6HeCY2yxDPkvk igvVY3JNVesBRkivPogaL3 kVbaBWFvdS8urT7urRtxcV 6pXfIgFgQdOQtgIF9nWZGf N4evdVUqMIAbBWBmL5xjFo NkpR0qdTunQzfpimG8FEJw cn19 Clinical Information (test code = [id number]) Shivani Schuler is a 47 year old female with IDA1. Gastric polyp x 6 r/o adenoma2.Duodenal Bx, r/o Celiac disease 3. Gastric Bx r/o HPylori Gross Description (test code = [id number]) c7zviYLpHXWcoLVTJCL9BY LtTQ8tgUycuTg6wTvlWKQg buS6kIJgOImcj9ksPHZ9t9 ctyxMAYogbIPAnEQ5aJBmg CDUwHG1zNiIlHMRlTpHhAB BhcGVydzEyMjQwXHBhcGVy bFY4APDzME7zyxnuEJtqHP kbNTUineR4XFParFDrX5Wk HGOuRM5lbhzoLEP0BMUEIe dqAj9lkUWsrUvkDsZhJvYp YXJzZXQwXGZuaWwgQXJpYW u7wH6HEztpZTJ5IWUKAjqc JavdsKrjo7UwoQRrAELwWT xcaWQgNTEwMDAgXFxkYiBP PfMsEuE2Gvv8BFI8IdN9YV y8LWCKQRNoKpxfLOP9HoR0 VNm2PXQnZM6gOCflwLAnYC xtDecgZQoxD234RTkhUSBa E0HtR6AlEZoyJcDvTPwxAJ YnMORnPLngACUvG9SRDVYs AJL3CnVgELHkWDs4EEhlQ2 RKJUDwIDJdMrN0OZVqNbH1 ZKc8NXVYGy2kIUfmBoFmUY e9VHN7BAk8GfCfUYYcKqCf YAQvZFNdWAdbzILrQS9jlH dmVUTlGR6XDOObAShfPCNa UjOzH8UWR2oSTT1hZUcraI JjaFxmczIyXHBhciANClxw MAOgPL0WFLBgTFaeJUk7dk HeUDIdToSfKPIrF43tn0MP f7PgCZ2RGMn0wjWxnpmvhK 2nXLUaqaShSWzCqIVnbO4m ruOGZWwyNQRcT2DiyiNzTX xwMLBjon7byRcyZEmbQvWd bGVkIHdpdGggdGhlIHBhdG qapfHfW1D5esHlHG9pYZVU WCVdrX5dTDPyPJEpt4NbrL UfdHcbU7VdvYYpUqGzm3j2 vQE6NESgthOfEVSodUIfRQ Wcnf9kMCpsRbSwI3B5YEAk PLArl29pyUJ3ekGcWsKjkT k4gOEcUKC4KG8voYazrtVc f4v2hR9bAEZri9D2BAQgu0 G6LRVwetYsgSDugWEdCQPf UG5zmbLyEC51MWTdUAyeDN dvPWO8TWS5SSJowCEjp5to eykzGk4gQOliNX2aFHfrXK 62WPSlHGsuLYPbM3SqU7B3 DOnxZRAkOHPsmLWnfW4ady EzaxTnbXh9RMOdJZH3cCXr fEnaERAsNshfaKZ5CGLuSe QsgwHtq3MysKk3iHJdMKdy SBZimG8ifN2vGKLmZVQhld URVjvoYSGgVSxyg8NeADgg cGljWHNhMzAgDQpcZXBpY0 0gw7SXf2Hjo4rrqTcoc2Rz iOSmVQ8ajRMoMB6Up8jmYV SakXMxPQE2CFckx8pnTWsr SHP1JUZiLuMxUKLkDV5BDu ZfIQrhHBd1EComTDq1JGn4 FF0OCmBiVEKmBxy2RvH4Fd XsUAv3RTfsQL5JUKS1FQXr EASiZExiIML9NVYjEWj9FI IgXFxzcyAzIFxcZmwgXFxu G86ioFLbGPzaTjXlSOsevJ ybQQAuSMT1MF7ICMJqGqPt L9ZTW4gJDM8kHrkaycLgXH LpvwVPZnvsSJSxVB9BKTGs NJyzRJa5bsWtNGQfKtNhNS NpN58yt1SMd2DuVS9MZUg0 uiYlaipwjI4lZQUsytIug0 IzMFxlcGljWHNiMzAgDQpT iYRheX0mwbPJPRrdRUWhG5 EudbKeMPekXMEota6ojRwo IGxhYmVsbGVkIHdpdGggdG cgJKJtbFcqwlYlF8O6zxPm WX3dAZHBOWEbmL6aWSFgBX HqCWYsIFOdeS5vNFD2a4Po qaRpUHVUNSPeoOeqGT83yN BjZWxpYWMgZGlzZWFzZSBh rpHhffOsk33oubTby3ViMR 6koKvgURtVSDpmZyJtMX7k KEKrxwQkf3DnRG6yBVBaeP GySVUyxbjytAIgMYp0sYXn XBJfQoQucSnay1HaMASoDF epBK74enFxCK0dGZpdYO5a DSemLC7sYAVpEZBvUTIwDb VjzWDyXvZtmVKpUvVlC29s IbRLmSXvr9LtT8qlLT3raN YqLxwvfCFlDXAooOugd6Bj cEViYPVsr4BjpJCoHNhyAA 1mNTI3Mc0gmORvJMXojaX5 t4GgTXqyXKXyMwyoPPRuGE ruc2FsCGGfuYEGs5SvPS7V XHBhciANClxzYTMwXGVwaW JKa4BfZQBBFpbwnBskBhVe rLVvCxX8NZIgbFXvRJV6SU 2ngGdiXZCdAZf3KJulGANe M0MdR5PcSNfyWfRqAJciXR TpAKYeWFpkVAUqO2FLPGDy QCN3BdMjMAYxOLs1BNieR3 SUDNGdDUIzXfH5GYV8ZpF4 JVi5QHVXDz1jIJaiXeGmBF DpLrD8YHe4QgVyFTMySdMw DESeQYQwAUapmHWvKW5usN qxNSGnXNMuEVM4ISOtaNDL y7WaCHWiBWlzHoIaTVCWVN KOUP1ELtLARAVyPySwfQYf EP2LZBHzxpFtKEmawVotwF 8rzEHcA7huMiGyOhhssGzz TmVzdERvYzEgDQpcbHRycG FyXGxpbjBccmluMFxzYjMw TAFmgTVFw8FmVYDQHgHdXR NpbWVuIEMgaXMgcmVjZWl2 LKEyyQ0bMc8sxWSnnY1nzU LdPErcKNVal8l3pIY7qTVq uGG7mLXjlKwuRaTkMV5avR PgHJXSQQ81cHLkzvRjBEYg bW0gHPMvOOGvWAA8xwipWR KPDLD2xCJmj5V3PDlmYHB6 sG0rwCwrRnNxN6E4HALxBQ Omu04llHD5baJaIeZlAXFv ut2xbM7pSFsrvrJpnSwrvs Hzp9Q0MJFvr0H8IMDvelCv dXHjaUWdPQXbCpU3MVRvCw C8AJAwXJAurPBaFLQvTT8k VGhlIHNwZWNpbWVuIGlzIG AgpGUbftMjJXJhde91Y1aw INOipF1tq6wjFzLnNCSxYI VouWExgVX7QMVglY9seL17 agRjjwJBPR3ylRHgLH1ASF NiMFxlcGljWHNiMCANClxw PVVeOBbxw0BuNSvwpIclNO XcMqLpXLuZkUeePDDWK4sx gNZfHBuvBUDHVBdIA8CHLA 8HIATuvUIJAQA0VC1fSJjv BLCnW5JiM9KqjkV4l8cgrZ nvu0HzwJSkDR9abPRbZM9T XHBhcmQgDQp9 Disclaimer (test code = [id number]) g6atrZTfOUDic2zwZRBngC FuZzEwMzNcZnRuYmpcdWMx JByjjqXaULits3KwW7DcJm AwMFxhbnNpXGRlZmxhbmcx FAObFJM1ygSwNRToXNgtQU YmRIytWf5alFUqmXgtXmOg LDQdd5odrbIDSGppUqKkJ8 77ISKxZLxju6rcl9InYZYo iEHal7E4QTVRxdkcnZk8nD vmR39qr3D2WoclJ6ygDNNl QTKcF4UwOT1cYEMsClw1YE Q1OOT0QXCbXZNlC0VoTB0x FYEqnMRtFJy4a9ablAitLG UxYPF0r5gaOOpapoXmKZ4v fw2kiZt6a1hirkKcFKYeBI QlmOMOCKXwW0PmgJopTp7l qHq3dIjyCwonQXE5Hem9XN 8oat17jqx6gDniOBGxpahq EfU2HGnvORPjeszsLKf7OI qkZFRxwJH3QMZraOKnP2Kr PXVkSK2lvzd2HVD7PWlfYL QxMkC5YZOueSLjHHYgzDpu NWupj801ULP7WeBnSS9eC8 Bbr2A0nD0duJJeNDYnaRAd EnNdRQQbdp2iiKJgCUfxp5 TqVSE2goN1sEBwuGGeXVCz NG07Wegsl1FsSfhko6KeG9 4imQK6WDaul0kcXQ6cVcN6 qkDvPFfdl5lznB1lCdH1CW sqBR4zOQ6lOACnlF7hdgfl XHBnYnJkcmhlYWRccGdicm YeXp5csAxxZGN8DFtoG1hp qO7wSjY5SUkwS2bkaZ1aUI e8AQzzpJO5OSAxxW9gKC0t sdbid6qzTJvwYRekLJRhgt M6foK2CKSqpEZfB4SvcQ3r PLDqZC9soyeco9hlGIR5KZ syVXQxBRO1EcChTZVlz5Ng box5ScEdc3GaoRAfSZviM8 6qa711TYDmeaFiF3mkiQNo zphggNPfnfytDTlnmhR5HJ DoruHgd3XjPXMtSLR1VQej FSwqjJZcPUJwtDiqx9lmL8 RscGFyXHBsYWluXGYxXGZz MjBcbGFuZzEwMzNcaGljaF ncHBaeJmNkHZFnANfkC6pm CuHlY1ZxCGQqUqTzeVXsL2 ggVGhpcyByZXBvcnQgbWF5 EBacV0n1QQOyhoZxxOx4jo OzFcQbHIVcLHC4JSlmuYRg LKTyz7HtzlbjpDChMp1dbV OoCAZgxW4eEQWdQJLpLGnp JE3pjMh6PXGTpPSnxBAaMd OABHKuUW07ovQfGKWIhwme x1J1GGazWAXbp9XhoWKcX5 gkc8OxUDOjn04fLW7eu6Q5 r4gmEWQ5KS7ku7QfNABvbY KayZKdHLPmc7Buzhtbv5Ws QASstpJld9UsQNFtvbCyjJ UgLEBajgVbyo5frkXtUREw COZsE0SgtxlcwHmuuiRsBC Ribw6ulrCoCPW3SOOMEJDj OIWve2ObmY6yzINORZQ7vG Azwl0ggcPYrIQlWSNuwu03 TZVxCA3cB4dkODTnACRwpo DqyRDbe2ZiYZHpfWY7pESb XX3GXrDEr63yMKKoYYAJrl OqFSZohPqibTD6ndK3zC5d IChGREEpLlx+IFRoZSBGRE KrSR1wnyJzc8XlpjDtfXvb ORUvkAGhk6EjrTRkg1LleE jho8BwhYTrfTLzWB1eTQEf clxwYXIgVVRNQiBMYWJvcm L3n2PmNYWcIOKiHDK0lOya opq4RIUjxZ1fOKEwH3ptob iiREwnMKYul0FcsC7zuNAT yUKej3TveRFakKRUiHYsPZ 5gdcVoOLyYMTgQGGN2kfDs DKIdb2FtWFetW2geQ23gaG ntyPu6aEM0WHO2qE9oNdn+ IFxwYXJccGFyIEFwcHJvcH WrTHVftWwgtqPsQ5QwzePt oD6qaVPxqtHdJZ3cHT5iV5 Y2eWWpNMEjpdNyi5ecRKyd dmUgYmVlbiByZXZpZXdlZC Ulu7NkIOfpKQY3UXfsxuIq bmNsdWRpbmcgSCZFLCBTcG EfpZIeVKY6JLuvllYchzXp RQ1zpG9arRdjbA3oyBOwdI D5fajnBGUqRYQhoNexLLZb LF6irZbhyC0pMuSvWeTtEU hwCJ1tZGDsV5qjmOLuOYPk RAQsP4kaPlRbfD9ycAxzDA xjZjJcZnMyMFxwYXJccGFy XHBsYWluXGYxXGZzMjBcbG FuZzEwMzNcaGljaFxmMVxk JbDxXUCfHFsbL8avOeGsC1 QbNUFsAeRfqVZhX0twRHrk CHH9QOPeHE5dpLHpBJ65bF Utw3pnTEaloDwagq9bD60l kRLxYAtqwKycOUQwy87mw1 EkSCIybhYkok8aSQWobsN6 lI8gQAGfuMzmVLMqbLEkUG Xur5RbIIqvhVRcjuPzGBig UTAyUXTjvLIalwC9xyKyep MbanOvIYSyfYluWSBnq6Oy HFPyJIpnj1Gxqo7fgVTnAA NnlqRGqPuimGAoxI5wI5Zl FQFoWACzbj3oFRFqkF6nST bek9FsjdjdTXEeGTBfRLEe nbDvjh8hDCCbhRHGMT3EYR uqaAOsi9ZuiaFzX8mJTNZ8 NUQwNjYwMjgxKSBleGNlcH KfXUNmxo13LXHqyQ7qyMwa MVFtjP5agU5boLhkoX8tJo TdVcHyGVoxGZ9rHEUeY9nf iIYqRJCvWVSiL5faUvOmbC 9jaFxmMVxjZjJcZnMyMFxw YXJ9fQ== Embedded Images (test code = [id number]) [facility] QNER5446-04-41 19:23:05* Test Item Value Reference Range Interpretation Comme nts Case Report (test code = [id number]) Surgical Pathology ?Case: [id number] ? Authorizing Provider: ?Dominic Keita MD ? [...] HPylori ? Final Diagnosis (test code = [id number]) j7hnjMCtKDHay7gvCOAckC FuZzEwMzNcZnRuYmpcdWMx XXenkdYiQOahrDglTUT1AA PdWP9fiWycwOj8cNxvMLDb epJ4bREtNRblx5zbYKT4c7 wuuiflRCPnQQjzQq0ldCMb yCwdMaZvEDBmHAm7yB10AJ SatY1jwMKjIVr2OGDrpLAc luDaFdAbCOEmhFPflBF0DX SfWX1axyppXAzmYAyrTYTp hzV7NCEerYKsI7MpWFZdPX 6adwpvULC0VVovZBIrCHP9 BwHyLRKwh1Fckqj2PyMatU FyZFxwbGFpblxmczIwXHBh wcHNNdOJYQ5GAIUINVLIG1 qIWTLMDZ1PPIEUIxtcsNNq JDVmZNBdLDGDAY0NSGCeE4 uQDyWzYT5TADNyGCZlmXXf YCOfwiSQEoPEDD8QTE3EMJ wgQklPUFNZOlxwYXIgICAg OHGxVWjXA3EMQOJzTWNOH1 TVMZdQXSfjZo7zPRRHDA0H S8bFI5HJMDXRUE8HSEomZG EfBMSwIIVmWW8WHEbuOSYD HN5NJIJNJRXOMQuSNEJNPS VKZWbCRUBCT9PLUJaELDJq kllnVJUsPe6wN4BAUYDYKQ wgQklPUFNZOlxwYXIgICAg SNJcYFJWY7LQYxGLCM0XN1 1FIDMNDVWPJY7EFDJWAGuW VZ3DJCREUAIZIRIBA8XhsZ FyICAgICAgLSBOTyBFVklE OI4LLSRBRoGFKPaSCGDfIB lTRUFTRVxwYXIgICAgICAt QM9OMQrmFDRGVC9VYREXKa dBTklTTVMgSURFTlRJRklF VYFVVTLPEF5MLh3EZSUXRr xwYXJccGFyfXtccnRmMVxz e3XvS0UqVnGlVFcvavNjJN WvTcinvydaVQBtZAG1dfIi QZZlNWsvPHVjJQepKn0uzD YuxUeoWcCmCLUom9voroIW EMwiDsEoU388JCSpQTodi9 nmf4HmBJYfqTEub7G8UDLU dmmlnFn2f6ahZzXzMpI5tO LfYBoyA1kkrmSmaCAsZ3Wz nHLngFr1jHlwW18eg3H5Be psW4ztPLBfTIPjM6QaHG4q NHUpSml0HWS4BEP2HPTpLW DhK4YcTU8hKSGpmGDvRTz4 t3gciUhaMGCaLNB0p2gkUJ mogrP4PY9gyn3bdBx0n8cs czEgRGVmYXVsdCBQYXJhZ3 ErcYdrGh0ppYx7jIokIapm QFM4Tte1FE8hja50flu0fI owJDOhtyomXwX0DRapNYQe yuzgTJt8UYupJXKidEF6DZ AybZAlK9MbTESdVV8zson5 MOS9IIunXXAuNiA6OXCoyY SkQMGznBiuQPhoe695VBF7 GiFeFN0hP0Dkn1U0gT1ruA IcDMKybXRdKaAaYLByfu3z mDIzROuyx5NzMEX2mzL3hV JsqQHzNXBfIU53Nfikr6Zy BcqcCEU4NIPsgjGye0Bmi9 zgHhFjgsPgZ5mmA0EeAYMd STLsIQLwUpIsmtMxr3Gio4 IvoXEtyIq4p5owTUAqSAKl xPtzc5cuGYL1KBMbQ5H2xQ Txu5klSFrgTMTseAP4djV0 ODKntPYuQ2KjeI0iGBDsSO 9mgxp4e3ycONM4UKwgXYCg TjM9iqD5VJJvsYDqTTHjjL clELikh190QFT3NtPpFLHc m2NtC1QyzXpaY66piCcaG3 3yNWIzrQtzlB9itLtiqS2f ZjBcZnMyNFxxbFxwbGFpbl xmMVxmczIwXGxhbmcxMDMz PNdyM8ieNgMvSFPkxQoeUX ctn0UtDFOfSSHyZiybelMc XHBhciBJIGhhdmUgcGVyc2 9uYWxseSByZXZpZXdlZCBh gAyco6ZiN3iuXJ0nZ4ZfkX NofcTcerVqOKpzSCZew3e4 wZFvsCrua4VvqKDlZF51rk LzUNPnIOE7XXNfw8bzED68 xjkhTsJipK61cuPlusHwWL Aom6hcJ7mnqXThi4Hze2Sy xsBxGZnvi1UsDN5yaTChxq sgfMO7XMUjtVXhdfJeoxY1 oLdnXRXwxN9kcQ0mwKmyqS 2fKeWsLuDwDSgiWQ5mUKSc R3mozRUjSUXoWCTqH7gyZi LtwI0zuAszPoesekG0DGAh cn19 Clinical Information (test code = [id number]) Shivani Schuler is a 47 year old female with IDA1. Gastric polyp x 6 r/o adenoma2.Duodenal Bx, r/o Celiac disease 3. Gastric Bx r/o HPylori Gross Description (test code = [id number]) w1hmcEAtEDAnrZSGPTX1IP VpGA6dnVrbuUe3jIyqVIWa dnL1hQInKTiuq3dfIXN0h1 ifnnEJMpdlNUCqNF6sIRgm GGIfML3bMwJbYUOgGeOyEO BhcGVydzEyMjQwXHBhcGVy eIC5WBEqVN0yiwqyQAuiQX oaIGKutmF1TNMwcKHoN2Gk HESfRO5vsuavDWZ5FSKRBk wkTo7fvKGylJwwFwReNrWh YXJzZXQwXGZuaWwgQXJpYW c2uA7YAhnfWTJ7NSOTMbhx QcafyBeyt5DglFOsGBVxGA xcaWQgNTEwMDAgXFxkYiBP ZqHzBnD7Sxx1YIP6KxC4YF r3NVQQFDTjZydgTIX3HpN5 FCy6PFMbSE3aWLsazLKqNH quIngaKQrkJ463OAqjVTFt J0JcM4ViQBkrYbShTYboEF HeSNCyXOobZNUiL4HFWNSy YBR5KjAoLNShBQs9ZQdrO2 GHHNInKMCqNkJ5PEBwPgK5 EFb7RRVKIx1lDNloPsCrCN x5PXI4DUh9PmBfBXTyPdPu QNDwYFOvHVtscRAaWU9wrK unIRWiMY7SGBTbOUvyMNIv AqVaM3QUI1cEKI2fEJrroX JjaFxmczIyXHBhciANClxw PELhCS1DYXXhUGdgDRe9iz LgOKKuYdMaEUQrR10ir7JF h0ZeUM9OJXw7ugZvlkwopT 7bZKGjcfQrBSaCbIKkeW7o xrPHORmwRTOaX1UctdVmXT twVWXpal7gnDraJDrgTzAk bGVkIHdpdGggdGhlIHBhdG wuvcLgC5B0kbAiRC0sAVID PFFvoZ0hKOSqIBKcm6XmwP PcnJbuD2NyzRKwBiNmq0u0 cKY1DFFszsAvPFMcnECqXM Okql7dKPeiGkZnP5H0FTDj YZZgh52yaUB3xbAaGeOxkZ r7kIDuBDW5LS9cgDhhzmEo r9r9pU9nQVXly2W1QTBkc1 P5GAHhssFkyAPioPGiMOPn ZS5thbUkMU30MJTxPXaeDG ilEGO1PLP5DCPkcBOen7dm sjupEd2wJLddBB1kYQgcNL 82BTAnCZaeUMOiP6RiS8C7 RKhpPYWzVZOzoSVcaK2kdv UievTkcUo5DDRyEYS6qDLe sYqaHIAfGqmlvJK1XHUdZm TuxzChc3ZdjPm4jAUyEQkv GBCbjW0kbO4hMFNdTNRrai ZEIeokUBJzQDjyv3ZoIFac cGljWHNhMzAgDQpcZXBpY0 3od3KFl1Xee2jjaDcbd6Rr xEAzXZ5dvILdBL5Zn0fhXQ GtqPVkXGH3SJpuq0fdLBkj NYT1SPXxPxDiZFMyHJ2IMv XuKKgrGTb8DLjnOIk4UKx0 EF5LHxFfVFWgWhm9UoR5Qn VuILn2CDbkWN2SPBB0QKUo DQKtXUanTPG4LLXlDXp5FT IgXFxzcyAzIFxcZmwgXFxu S87ekYQyVWzcZvMoZElhdV xlHZAoRCU8DF3TKJUxHaVy V0RAU0tIQS0fPkaqzaIvIE FdonOHPtltHLUlTR0XIUDm PJmvDXp9qwDsTFWtAjBzQG DnX47ts9NJv2BpBG6NSTv1 ylEmytcwsY0aITNpbyJgv6 IzMFxlcGljWHNiMzAgDQpT gUFmxM3nzmDPYZtfXSPzH4 SggfJrCRepKVEqyd3aaBvm IGxhYmVsbGVkIHdpdGggdG yzGQYxsTtlfcErE6E5bwOz EC8sQPCJLTLsuF7wVPInXF BcXOIiBZBgnC5kDRK9a6Ri ooJcOXVTRNBitRuyHQ25pW BjZWxpYWMgZGlzZWFzZSBh wbMsulKyg10tsdUrl1UwNF 7diFpzAHrFQUjxScUtGP9r YMJqejAbi6BsFO1wWBNlcZ ErPJTpanecgJJsOWz8sTVz MAZzVlGkrDcbz6NwTPXaMA fsVT92lkVlPF3vDNvcPO6r BJyvQR4lPPXgZMUqNJOaYg EilQZeQlFrcNZoJiJxJ74i ZaINpDFxo3DnH0amMI4enN WnCoczaXHdVNKdoUkmg9Mc mVUvWMQnk2WubMTbEDryPG 1xGKC6Jw2rtMYsHWYvnqF7 v5SeHSwzRDOvMkrjCPWmAL tho3QaMCIxkLRPn3ZqYP3O XHBhciANClxzYTMwXGVwaW CAo8LlBWOWZqdaaGqcEoTq oYYdMnM6UOIwvLCkZCD4PO 2ymJdyEQUfBNr6EWneFBFm Z7BiO9JdUDfdDpLcINebWR JsIQLqKFcxPHPjM4DKDZSp GYB5CnVtLZTlZDw5FPxqN0 YBFOLnXOKfMeF5QOZ1WcH6 YHd2FDBPYr6qQZzvYmByBI CzItG5WZv5VxFdFJGyRxGn KPLbCJTyIIpdoEQePA1wcR xtRLDoGAGpTQI9ICNbkOQJ r5UxVFJfTHxkSeXxBOPIZR BJMH7XZcRWRVFwPuAayJPo UA7FMMVrzmZhBUlguGqkbV 3egYXoX6fvRsKbJnaamPke TmVzdERvYzEgDQpcbHRycG FyXGxpbjBccmluMFxzYjMw ERAidYHCh6AmNQIRSnCnXM NpbWVuIEMgaXMgcmVjZWl2 DOMewU0oCi5azPDxnW0efP TzZBosTICuj7b0hDY5eIQu pBE8xBJwuEhzXiJaJQ7dwG RuALFODE17fNFyjuRkPUFt lC0bAUVkVURcASQ3paluCD DIWDO1lWUqq2O9OKltNWG3 vZ3ztJjvCkBjH0A1INJlAH Woq04evBM7prAmFoKlJEWc fu1woE8sCBksarAqsZkupz Cij3X6ICTlv6D8MWSlhoIn hJXelGByJDBzJtP3AUZaQp N9FKGxFVYjeKOoXPGuUQ4h VGhlIHNwZWNpbWVuIGlzIG YirRPmwjLyVDMlml92X8od ZMEsiL7bh5mvLwFmDTRcFW DlxFTpiJO5QOAyiC8wfS06 cgHhxuQTCC3ubHHcKF8TOC NiMFxlcGljWHNiMCANClxw AVGgABxja1EbXOgncYmhBU MdCeJjENcWzJeiVOGTI4gn jKPwMCznVUOWTLbMP3NDNT 5NFMBtfTHYBSQ6JI3kEWeq VFEeW9IhK2BpmhS9w7lggY hnu6UhoNFhTN0hgHQtZC1X XHBhcmQgDQp9 Disclaimer (test code = [id number]) x3dsyBZsBYNls8tvTWYgnP FuZzEwMzNcZnRuYmpcdWMx VUaaarGnAPfru2GfS0MzCs AwMFxhbnNpXGRlZmxhbmcx QUQzJZU4raUjQIAsRNcaRN UxEApbNi3ylDDosQnnMtUe HFXfq5kruwUCOAfaBoRjX8 12YMAzXEmcw2qzu5RlYVBh rMMol9D7RIDLbswctXe9wB giH44bs7G0BxmjL6waZNUj JYBcB0LmMM3wXRAsUuj8JB N1NJM0CDJxWXIvA2TkBH0b SMDhnFNvYIy1v7zdnDphXM VuTPP7l5ujNOvizwTeGJ7q ng5kcJu1a9raelMwVRWnDE AssMLURERrI2EerSokTg5m vOg5gUmfCiggCNH3Rgd5BZ 7cfr72geb8rSqvMWFbxfvp PmT2IEuwHUDzyolkYDm8EG oaRFVizSF9CIKvrOOxW3Ze LGPsLD5sjfg6YMQ0UGsoDO KgMxF7AOMaaQYnGCKedZre EZqnt921RPZ0DwUjPD1hO9 Tok4D4tA4pnZJtXVZztIZm RoFpEMNlpl8lcSRkERwtp1 HpTWT0bgQ0yAYgyUHbTKJe JM43Iynwz7OlAwrdq7BtC2 4ubDI8DBtvt9muCD9cVyT8 pdVtUMyoy7aazD0dDgI6OL laEF4sQT3oNAEcyS5xhutn XHBnYnJkcmhlYWRccGdicm SoMh4hmIhbYKT1MCsfB6km rY5vKuX2XOvgZ4wzrM4mPJ b6YTiodEC1UAZdhD9kEN4l auvwt2kxFZptIWtsJYLylt N3atP7ILAnaWQyV2BicZ9e PMEnQQ1qooewp8olKLU8UX kpLVCrUFQ5SmXxEEZic0Sp bmw4FiGmj6LnbQHiIMheJ3 5mi869DUHszoVeP7adhQDc peftfUVpgukuPLobiuX6FH ZcntDmh6YhMDTpBBI7DIyr VFkwjHYyCRQqeOsgw1lxZ0 RscGFyXHBsYWluXGYxXGZz MjBcbGFuZzEwMzNcaGljaF psCOanAwRzYXLpFOjoE3hx RuJiQ3PuISCqTaSoqLOjI0 ggVGhpcyByZXBvcnQgbWF5 IQvrB5u7PRLrqvEyqGp6tw RlQxIgXLVwKUX4BPojrEZy XMOwh6XfqrrfbXZgSo3qjJ XxSKDqiI9dNNWkWROaVVhl QR6ghDl5OMUQtBIfwQLjUs QTFWSzNR76qqMwRAAPpflj z8P9IHtmWVMyh2MquSIzJ1 yub0AsDJQtt36vJJ8hk7M8 q9pkBWY6BT7lg3JzDYNngH EvgETtDLStw1Uczuchz1Yp OATizeMah9YcPGBgwtIxuU CxAFGsshUilb6hfoBhMPUn DMGtZ5VkxmfamMgrqwBxRS Nslq5uahCpROH3GZAWKZTw ZKRof7VlqO9mdZHHJII7zF Ymyh7mhdHYqXRyUNImuj81 XYWwJM9cZ0qpBMOeUNOqpf OyjJCue9XoXHYiiLM5mFJc GU5GDaNSa47tDOEeRZNEkr ZbCIUgsYbhrUK0ekT9cE3d IChGREEpLlx+IFRoZSBGRE DzDG6lmiOjq6MzlfBxtJzs OTBggTGbd4BnsNJmn2EyxC fen3IcwEUduKPiJO6vRVRk clxwYXIgVVRNQiBMYWJvcm B7u2QbRTDoIZOsCAX0eTnq slv3JHXetB8cRYRoA1puwa kdFCtqLVUve8YqtE2vaXTM tMZon4MurBYnrDDQiEUcSF 2qslBzNAnAZPwDDQW1skUf VJQel5GjWWjeW3qbG09goM ncfAn4jYD3TOM3aH4uOvh+ IFxwYXJccGFyIEFwcHJvcH PaXZXukHqznvPmP5LkyuOc mY0gaVKczdThPR5iFI1yL6 V7hOYbGKRvskKkt1auGUnt dmUgYmVlbiByZXZpZXdlZC Dpi1OuHSjtUMU7HFbkkbJq bmNsdWRpbmcgSCZFLCBTcG MfwTNuSNG2GRctieDfpvDz VB7ydX9sjOsbuC4ceQKugF K5bsesGHVgJAMywUlsRCEk HU5wiMsshL3sEyYkKcOvUC qsZN4gXZJpV4vkzCJrJYUl WDEiP6ztQbGegV8liBliMO xjZjJcZnMyMFxwYXJccGFy XHBsYWluXGYxXGZzMjBcbG FuZzEwMzNcaGljaFxmMVxk GwKzWWUjKVxuA9czKnNkJ6 JcUGMoWyAhxIKgG9zhVFhw IJZ3XPYqGP1mzYXySH18xK Jnb0xbHUtwcKibkz2wN43n yOGwYPyvyWevLUIgp48nb1 XgAGXlcxJhib9oZNImehG0 oF2tSXSbuCgnHAJsdLIhVO Tex1FhURfhmARwixQhXGjg LZOpISSzoXZrryK0dpAfax NqllZnBEQliRpiCTYts2Wm MILfHGmtb6Qefy9bjCJjNX OrtxYLbRszkCMowT3sL1Jj WBYyJWJacs5zXWZsxU4hNE box4XtycgzRYKxOHElWIMf dyQjgt5bJXHuoEQOCV2SLE cwvIAnz7AmnsYeO0wZQFN3 NUQwNjYwMjgxKSBleGNlcH KcVKDyst65ZHFvyM0tgMmn ROTdwN2jeH7meJygpX3oWm UrArVdNLdrSO3oDFWtW0sf uLMvCAMhYDLtE8bfGpLyoM 9jaFxmMVxjZjJcZnMyMFxw YXJ9fQ== Embedded Images (test code = [id number]) [facility] [id number] 19:23:05* Test Item Value Reference Range Interpretation Comme nts Case Report (test code = [id number]) Surgical Pathology ?Case: [id number] ? Authorizing Provider: ?Dominic Keita MD ? [...] HPylori ? Final Diagnosis (test code = [id number]) q5fhbVEiXJTsu3ogNKSiqP FuZzEwMzNcZnRuYmpcdWMx QVpbpoQfHKbcoBdqGAZ0PH ZfEO0jvYuqrGt8nPaoJYCb wfK9eXYoZThga9hcAMQ5o0 ruwiorITWoPAagSs8bvLKx wHwlItVyJAWmKRe2wM42ZD IocK4lsHNkQDs8NUYdlZSd kyPzUdGbSBXibZMqkIY9OP JwNT5tngekPDsoAKocZXPo syL2RBGdyKKyE5KeYEVzAD 7yuvskOAT8GBflXHAiZDF6 IiSjSBYrw9Itdkl7GkLmpB FyZFxwbGFpblxmczIwXHBh geHOCmYJEC8LDWAALRUFT7 pPNGNXRG4JPKNSOldzwXUa DQCaGLVtGCLMEU0ICOXqL7 wGItYgGP6CZSDjWFFzwNMg VXHpreILBtXOOF3FDC6BMV wgQklPUFNZOlxwYXIgICAg GZRtYOaTB0WTNNIvZCTRF6 HVKUrVFVbcFf4sJXZMUZ9O Y3zUX2PYUIRFDT7AOQlsFP JbIIXhPFFdMT9YSSopFYUC IA5RAJVAFNWHDWkEIFLWYA LCMHeOIMXIE7DOPOiLDZTf jwbqZFSzHb2kQ6YOIEWXJD wgQklPUFNZOlxwYXIgICAg TSRrJFZTV1POCdFKCC7CE2 0DPZHOMOYELE8AKQVYYQiT ER6IWYNKZXNJORPAS5KrvT FyICAgICAgLSBOTyBFVklE JF9HCYXGUmVZHWqXBIAwOB lTRUFTRVxwYXIgICAgICAt PA1EROljVKZRAG0XZTCXYn dBTklTTVMgSURFTlRJRklF BRYLYMJUNV6NUr2ONEWYYc xwYXJccGFyfXtccnRmMVxz m7HnO8VyDpHtHOmpfyZtWS YgShdtrmjdAOHfCQF4knHm TSNjWMaeLRXkTOcmRv1qhD TbhMmaBcSrEYFvz4gdzaOX RTetJmEyG347GFEsCMztn2 pmm8PvKUGjnTEbn0Y6ACQI haeyxPs5m2qxOvZnPzE2cL LfDDuuQ6uxknAafGRbU9Wt nKRcwBj6dSopH02ec8I8Ni imD0uuQMEkFWGjW6ReKP6f PQQgGdq7EJW9LXO7EOJaAE TbC2CsWR4fGXMtoRFjCHc5 z2dfoOpyVGUsFSQ3w1egEW qjabM8RB7mrw8fuCq7i5oi czEgRGVmYXVsdCBQYXJhZ3 IisHqjRn1raCl4cLsqZnds WVU7Ohe1XL9blt11mua4tC yxSFDeytuxPkI6MAhaPKBr ebjvVJl7ESuhIPRyuJH3NF LuvWNbS3NeJVXmSN7wisl5 ZEY2UYjtQYPsRbE5SSAcaI YlSGRsbNgrLTreu380MTU5 NxWlWP6yX0Bgs9Q5xF1dyJ NpSAUvgIKsXgVdFMYarm3a uGFbFTeav0GqCIO1cqU8lS VurPOfSOUjTP44Ndusf3Kl FqfvZVQ9JVJatiEqb7Krl1 piAbOyneXgM2ebK6JfBJCa VMHpXDGrKkIqlrMyr5Bxg0 FlgVKtgQw2k5ycLYIkDMIh fTqpm6qtCLK8XCYcZ2F8fW Sio4weZPlqTKYlvYQ7qiI7 VGXjlUBpH3LkmU7eZHIbGY 7dful4r0vdIUY8QWrmODVo YwT2nlU8WFHrzZIvZHNlkQ emRRmbl155HQP7IoAzYAVz w9OiR5HxeRdrB41wxXsbF6 3jTTJcnJzwzJ3hhQyigL3o ZjBcZnMyNFxxbFxwbGFpbl xmMVxmczIwXGxhbmcxMDMz RCpjH4odAiQsOACccNcuVQ nrk4TeQWDxBMQuBeutppYe XHBhciBJIGhhdmUgcGVyc2 9uYWxseSByZXZpZXdlZCBh mNuqy4FxI6ajLZ2cD8LxfM EumvPdzlOhQAieYDWzv0r8 cDJqdNtth5FsfGYmAH62be PwRKQxJKT6EQPkb9ceBX09 juaoAvYfnT97bhFjljGvJW Xeb3wmC9dluSEtm0Ynq3Ne neNgTGdha4GkEB5nsFAmgq fgjAB0AVMygKQlxhFezhW4 yEbqYEDitM4eaF9ggHtpbU 5xJcIyNlDhNWvhFR1oMJWa I7ftsERvDEElOFLnE4yzIa QctC1reStiZwwncjG8NRIm cn19 Clinical Information (test code = [id number]) Shivani Schuler is a 47 year old female with IDA1. Gastric polyp x 6 r/o adenoma2.Duodenal Bx, r/o Celiac disease 3. Gastric Bx r/o HPylori Gross Description (test code = [id number]) d1parNYhMBOcbAODITA1EA HuEY2lgLrsvOq7eLisIPCa cqB7hCJsHIvqm6mxBTR6h1 doryADMnotVQTsRL4kQBkl XUXdMS9vDpOcZICmJtJeQV BhcGVydzEyMjQwXHBhcGVy wGS4RHXxOM7qywfdHWuxQC toDHQhuhJ9SZTxwMFqL2Tn YSXtOI6hrsqmRIQ9JEXGLf ifVc0lkURobIklUtMsLmCr YXJzZXQwXGZuaWwgQXJpYW d9rE9VHttpSER3UGIPGgqk RrxubFssm6MalZDfOBUdFE xcaWQgNTEwMDAgXFxkYiBP JkGoZxE4Csf9RNU3TmP0KS p8QLDVHIXfEulzBUA3OyI4 OSl8EVOnCF4cQYdslYQwXX psRmzcLIazR627BMenKETh N5LeH5NuTVnyXwVnTVnxBE VwROWbJZeqNCGcU3MRIJRu WFF2NcUtTSMpHUy1PWurZ0 HQWQEgWLAsPfR7BCBwOcF1 DJr3LZLVAh0mEJftOdFcFW p3GWW8XIb5SwGvKKPnOnPa ZBPhMFZvOXfgfQAbEY5kgJ unBZGiDE1ESGPsDGzfYEHv QvWjI3TIU3pZWK9bYLfrrQ JjaFxmczIyXHBhciANClxw FEZcXN8YIAAmVHyxQUy3ff BfHGYbMxDbJTPlY83ty1RU w6CqCL5LMWb6krIurfwttH 8bOLUdqzBqULdSlEXwvJ9p hjEOEGrcYSGeH4TqquWsWU dzPUKkrq6pxUzpYZfzGwJk bGVkIHdpdGggdGhlIHBhdG kmobLbY9Z3hwIwLD4lHURA CTWtaR5aQHYsAGJpw8XkoI KvlDxaR4YylKSvWaKey0m2 gZU5OCJaqcRnWCKdvREaYB Ebid9zSYgaQmLcS1B3ROHx RYFrw67eoRY0ifWxMjJsaL w8pBFfCUW9SQ5ecTgtesFj e3n5vY5iYZEjx9D9ELLzh5 H0TLCddoPmtLRbiYHbARFc BZ8rycEfQA42IYQqVKthDR rmJGY7KAQ6ROSxmTHzp5lh hpaaAc5kTXyeXA5gGPyyPV 48MQEdJXlvRJWyH9VwZ9H2 VRslZYTnYQCggRFrxI1xdd PjzeQigFu0QUNaMBZ2fAMp rRmgURYxOthysTF4PHAqOc AdteDmn6FiqUv6vBKrJJiw KLKcqA6vzT2rVIUpUBGddw OEOuzvORUzXMfnv8UmFOcz cGljWHNhMzAgDQpcZXBpY0 6ds2THv3Xhh1anbLsug0Ja lUVsXT2wqLJdPX0Tb4qfOS CigWYvMEL1ICifm2fyLOvf OAA1XSXmCiFeAAMdUV8AGo KvJVpcSAm7VBbqFZp3IVv4 IQ6BHeCpVNEhKoe9TmG1Uz QzYAn6AHumXU2FLMT4GOSp QSGmSJivKLF7EMLtQYx2RB IgXFxzcyAzIFxcZmwgXFxu L10nrNAjZZgjScVrSExwjQ jtJQTqNFM0QE3DNJJjUfQn B7SCM5tKDO1rUflkwlTtVY MvhyPTFwrrLCMiDH1SVEAa WItyYMz6kcUiKMRfBmZnNR GrL56nu2ASl7JbIM5EZWt1 vcDldhfqlQ0vZMBifjOke3 IzMFxlcGljWHNiMzAgDQpT eYEcoT9ppyGHOUddQYUlT1 QxgvGuOEubJUZllc1jvCuj IGxhYmVsbGVkIHdpdGggdG zcFTOwsIffwgDvT8D6dfLv WK8bMJKWRWQoqL5iYLLnZO XlFHVtEKSqaE7vGYO1u5Mt ifYlEDAXXJBqzXogQP03bY BjZWxpYWMgZGlzZWFzZSBh pyJyvdNsj92kseIhw8BjPZ 6gmIliIOkNPTkzNbLxDT6q FABlmsOrb6DgAU3oIXGvfA HtBNOhwvahrICkITh2kZCe LIHcGwJygTwdx9IdEGNxCM ngLW61unLoQN6iLPzlBX8o PNjrJT3tNLGwVHXnUPVvNv ZweEMsDbNzjYSxIwJwE30p KkIJfRVax2JvC7cwGQ6woX SyXqjzdWMyXSJabSzkw4Ha kIOtGZHyh0MxuVTwSBgmGW 0oUWF5Qg9vrDSdSXEmrhI8 a6TbOVzoSWFdXbroUZRdET uiq3PrHBFgbAUKw8ZaBG2Z XHBhciANClxzYTMwXGVwaW UJo1EaOKCYVgbhzZrmVnFn hIQkMwA8MMInjFPlVTL8IY 2xoMdvVGDcTWq4FSsmXJDr L8BaW0KbFPzjGsWgTSjxJB UcUZMtBOltKKHyD4DHZIWc HCX5JiBaFBCgLFa5JRseQ8 ZTGZDpGLIjDzA1ASP4QsJ8 MXy7QBHLYk9gCFcpJcBdWP ZxAmS2OOa9VrAeHVZyGxPm UTGmHFQvHMpknZBkWI3nvG ilJQQeIPWnDDX4VHAszFKM r9ZhUMWtVGggUrJoFTVBQD XKOA9WZmNZAAFxZeLmfORu DJ1FQDOndwMmSTkxqQnoxP 2mqIGjB9hlEgNcShpyqUcs TmVzdERvYzEgDQpcbHRycG FyXGxpbjBccmluMFxzYjMw ETLseQPSf5UyGITISfGeQD NpbWVuIEMgaXMgcmVjZWl2 OCCgrW3zDd5ybOXkiT9sgU ChASrwBIClv3c0iIV9dVWz oKQ5tCWtqFwtZzYdNF5zvU KsQHUCNT90kAUveuUuYVOr fS9dNYZcFEEeHHM9kyidDQ XPGKS0oDHkc8P2IWdpKNG8 qX2ebGujJkDtB4L9XYKtWO Ytf88dhGS5tbFgVoIqVWTl pv2brL9lGEhbckYmrQvnlw Eaw1N4YXUhr4T5NIPadgCz zMXsrJAlNSOfWsD6BDGpHa W5QKGxSWRcjZPsVNRjNG4b VGhlIHNwZWNpbWVuIGlzIG LoaRLyvoBeYMGxdf51L4kz VLKqlC9ol1keDhKvOUVtVT UdnDGpfDP1FZUmbP3etF05 zlCmezNYSD8loGIeMU2POX NiMFxlcGljWHNiMCANClxw JHVgQIdit1BjQWlmxMxeFD CoFcAjFUuGcJesTQHIT8sb iDCrSUvyESYWNWxEC8LWVN 5WLPJjgWWVXAE2EF1mMDfk BTPaG0HnC9KcizF1d1huyU egw7DcrNPeUS0teVStLM8X XHBhcmQgDQp9 Disclaimer (test code = [id number]) c8lmhWRpUBFso5hsANQhxZ FuZzEwMzNcZnRuYmpcdWMx PPitslUyVRnly5UnM8EsGr AwMFxhbnNpXGRlZmxhbmcx BWBlCIW8llJrGNZxPLtrRA ReJIyySm1itVZbcXtoVfCk RPDti5wjrmKPUGquZeMzW8 27QMSkFRenc6pki1QpCXBn kNNev7L9VESWyhkcyLi3rN loS08if5X3MbmyT6riIABd YCZvX6IrXZ6lNYYiIex9PB P6TXX0QGXuDIZtW2RcNF5y KOZihJRmSYt2v6codVsvAH UdQAW2v3bcTTqqmuAhMU3j wc1oaVt5o3iscyCsPBVuKI DpvYEVKGXoS3PloFtbMr2o gZx4gHisJwgeDGM2Yax0QD 4xbz25xwi5sJvtURQwmfec TcB5ZZcdSQSeccdiSKa7HT vjTPWkwHV5DSLnvYAxT3Qy BHQgJN9lfna1OTI0RRokZS ZfHiR0QGGnkTGtXGPezCgk BAvwh353IVC7DcEoOQ6mR9 Aoz2V5mW7rkLXdILVkoHKs VoRmNPWwil2qfPNaYBkki5 UaIDJ0prM7nNDjfAYqELLf AX21Flvhc1FqUevhk3BwU5 8xfAK2BXwjd4deSU0sEcT6 gfQgDVfhu8skuQ0kGyL7KR qdOZ6yTD3lOMBvwW9qhtxc XHBnYnJkcmhlYWRccGdicm ObOv0tmYetYVB2ARxgK3lx qA0sHvR4MIftB0ojvF2cER k1FAmrtFO9FOPquP2cBD3i gnxkr3daBTguHYshNTViyx W3vrS2AFKleGNhU7WiiV3s VIGjEI1eqvvsx9weKZS5ER ueVFBbHOK2WlXnXUAap4Na szd8TuGha2PpnMCpDJrxV6 0ze909IADverTpU2mzyUCz hrtmcIUadqdiIAedgdQ0RW XeqrTdv9KyYKYyZMC3SKzl KElfnDXyBRHvyXecf8csN3 RscGFyXHBsYWluXGYxXGZz MjBcbGFuZzEwMzNcaGljaF elIErjMdJbMBHfPUimH8sr OrKhJ5XyLYUmVnQrjRBeM7 ggVGhpcyByZXBvcnQgbWF5 MMjoC2p7EIGmjlDnqMb3au BjQnKxBTMwGEG3QXmmcJMt CCGwg7XxqbvnuWIbCd4lrS BcZTWwzG3iXTCiUYZjULny QU2owLz7JDPCtHRdlKTrDf QMURKdEC05mjNnCVBXxfkq l3F3JEluJLWqv4FysCOkV8 wom1XpCOGvq29iIS6od0L5 x4wxPUI4TB4hw6EyDGNixE CuuIEzQHCic6Dngyayf6Hz LHViqgOmf7LcPHNxhcLgjC OlXTLvnrRows3qaxRaDOZr GNCbP0OnzjwilTrepxHdJX Wusf1zqyIkXWI1OSGBABYe HXEms5KsdE4joKJTCPA6wT Lkbe3hhdEUtQPgTPWcjs54 TOPoVQ0iU0daXAYgXBTksw HozZAbw1FzPHVhpRX0vNVu YO7EYyMLf61uKJCcKARDjt CvUYXulZkthQU5umK2zX2g IChGREEpLlx+IFRoZSBGRE PnED8uaoZem7ExvpToaAhn PFQojOGcd3UthKTag9JdmP ghu8VrfOWlyHJsQA8pFQVl clxwYXIgVVRNQiBMYWJvcm T9v1ViDNUzDAVwLCI4wAlw luu1BNRumO8zGPHaK3rdah roWPdhSXEaw8FsgL0fpFNH eVPny2NejQQzcMDKvNSiHF 7dipRdENyQYVeXBLM1pxJp RAIhy4MxZPsfW5sxQ46pqU clmHr7lTX3WTQ8tX2jJzh+ IFxwYXJccGFyIEFwcHJvcH XtIAZqqYggacEfD3FcpeQo sE9vqJIkhiTkZG0pNH0cM5 K1iGAcLUVtvvYbn0ddCFlz dmUgYmVlbiByZXZpZXdlZC Any8KwOZkaBIS8TJzslbLa bmNsdWRpbmcgSCZFLCBTcG CldGMjZTU0IExfnnFrlwRc CF6bbK3hoUvjqU7lnZNynU J8biwdNXUrMASzlUolLVSm YQ6fkVmthJ1iFnYnVhXwTB cbUA5vFHIyX6eqvHWmAUAp HKYeU4fkTyBrwF9trYfqMR xjZjJcZnMyMFxwYXJccGFy XHBsYWluXGYxXGZzMjBcbG FuZzEwMzNcaGljaFxmMVxk IuLzATXvNBukQ9ksQfWaA9 VjKRVqImYwgVQyA6myPBnv SHZ6CORzXL6kcHZaYO02tV Pza4hkOIeljTfcbn6jX09i bPTyUCetoOtuZGWnm11jl0 GdDQZjtoValk2uMKMceyU3 pI2rJZKhxFqaPEHcnWLiQZ Fxy3EmDGaymVUmooLsKAjm CNToYWXnqDRulhE4chAdti SdquSuKLFblXwlAYMtp1Iz EZWdRThwg2Dzyh4trXSmST GjbnOIsMqrrNAgyL3pD4Qp EGLrKALtos1lENMstF3lBS xnv7UoaezqSTOlQNQkUAKn reDbwh5xXAKbnQHQCE4AZO mxfABop5MotuUmN2gBACZ8 NUQwNjYwMjgxKSBleGNlcH SgIWZfus10ASIeeU9umNsf QZDpkG1zsN3xnIdclM9xNc KkGaCqPBrrAR1yUNGtV0oz xIEwENLvIVJgY0ojCwWakW 9jaFxmMVxjZjJcZnMyMFxw YXJ9fQ== Embedded Images (test code = [id number]) [facility] [id number] 19:23:05* Test Item Value Reference Range Interpretation Comme nts Case Report (test code = [id number]) Surgical Pathology ?Case: [id number] ? Authorizing Provider: ?Dominic Keita MD ? [...] HPylori ? Final Diagnosis (test code = [id number]) f8dflBEnJJGqg0jdIHXlwM FuZzEwMzNcZnRuYmpcdWMx ZFwiqxDqTEojqLkjLZO2JA WlQK6ddNkeeBr5vKxbTDKb msV2jPBkFHpaj7alSRS5z3 bafqjhMKEcJQxaVu4nqEAh qPczGeYfVAXdHTw3rD45XE HagG5pzRVnKTa2AGZohVCl mwArMsRhFIZboVIiwRA9QT EvUV7pfbrpFGsxUJwxVOPs mqL8XXWenHZzL8IoLCUhOZ 5xagywGZT8XHwdFYWbCLB8 QySmTRSov7Ejxtq9DeIewX FyZFxwbGFpblxmczIwXHBh qoEBBdDTSF7SPQRHNULQA5 iWSOWAEW7YJUCYIqsxbYEo JMYjFAVyLWVJHY4TPJXzS2 wDYbIyGW9KOFUeYNSvlXRu RJWagyXNVpLGDE4XFA8CGY wgQklPUFNZOlxwYXIgICAg XCJfTPeBB7MIYFAiUWNQJ3 YVWTpZLNudRi4vNMJVPI4R P6zUR6KJNJWWTO0JMPtuHR FuKARmMJUhHX8XIEcxRHTF NM8KXYFFWAYJHJrOVBYFEB UDLImSXPSHL4JSHZuHJLCs rxsaDWTgIm2iK9IUYIXIRQ wgQklPUFNZOlxwYXIgICAg NWPlDUMTL9DEOtIEHF2UI3 7HBWOISORDBG5CGVVKUPuT UE7CCNUYSBZZQSUMR3LgeF FyICAgICAgLSBOTyBFVklE SY5BNIOPAaDLPXyNUKHgCZ lTRUFTRVxwYXIgICAgICAt DU8QRFphAOWDQN7NZGJBGo dBTklTTVMgSURFTlRJRklF LMKWHFGYJE7XTs0JJKYCIp xwYXJccGFyfXtccnRmMVxz t7RhS2InMtWjHMjuyqXqDE VmWjwpapcsEMCeEWS4meSk ANYhLTtuVUIpIHgkNx8msI CjcZgeOiFeRTNkh1owueYL QAerSuXrL232QTEfQYxyn1 syv2JdNDQfrYBxu7P3JKTE swyivZk5s2qqHrOsCwB6jM UdJSvyS8diroYzxDNnR5Vh vKCmrGc6tAoiE18ig7G3Ks jrF4ssMHZjSDMyW1JsZL0z VVXdBjn1IUW6AFS3XINiOI ZzO2SxGC9oBALigTMbYTu7 k4nxrOaxOMNgNNR1l5keTB hvlcY7RX4dyl4swWk6g8zm czEgRGVmYXVsdCBQYXJhZ3 JudJwfGy6ktPw0hOgjYbwy UYZ0Mny4EQ3aha25iku0nH kmQBJcgecyVpP1PTjlASEc dmhsJVf7FNyyZTBbiEN7TW DvtXGuI9JkUSPkII6mfpq6 MSE5ORrhENJrCcA3XZEqkK UaXFFvqIacJAenp895IYN6 UfSvSE3sZ3Zkg0K2xD4giL LfXAMutEQlVbGhVBKdyo7l bUKcEPxcf8IuHAX5nfI0tN KcpFKvZIWaER07Ktlnw8Oj JdqjTUO7UFWwosPfs5Lsn6 usUdKoyqJqX9sdB2SkXHNi MXIoRHOtBcEtnxOrq8Bxx3 VdxJDkdYm5y2ltCSHfOVKw jBdfu7anIMJ4OFAjG8W4aR Zmc5ixIGnqRXRbvMT1jnX6 GVVwlWYlX5JpdP9wMUIoFE 6yttw6y7rtNSU7JBunOUJy ZxS6seL1ATAzxPCqKCGqoP igNVhnz139DKK9ZgZzVBPe c5NcI1MrxKroX15izPzhZ6 0mLHBjrMnutK7gpRmkxO8k ZjBcZnMyNFxxbFxwbGFpbl xmMVxmczIwXGxhbmcxMDMz OWprM6qaSrTxYIOffMwaJD xmy4NdHZIzROTbQsyiojMk XHBhciBJIGhhdmUgcGVyc2 9uYWxseSByZXZpZXdlZCBh aCaon1IpJ4zzNN9lV2EvmG CytdFkaiTjHJdoMGBrc0r8 zYGjxBtys3GjnNCwPK55td CtXQNmGUM6FTNnv7caFX61 rasvCwPupX63rnJpbbTdFE Vgg7npD4cgaCFgn7Pkv6Wo qyQtPSxxk4IfVV8dpALrqg afzYS0OJKrfIHcijBtvrF5 gThnGLTvmW9faG1egDgsoF 0xFqGbOsHlTXsoVG4uIFUz C1wudCXdNMAbOUKbX6krNj GzgT9kyYkvHjzxhtG8WOIm cn19 Clinical Information (test code = [id number]) Shivani Schuler is a 47 year old female with IDA1. Gastric polyp x 6 r/o adenoma2.Duodenal Bx, r/o Celiac disease 3. Gastric Bx r/o HPylori Gross Description (test code = [id number]) i1bodPUcZMLofQDXNBW9LD BiIW7joKpfzKl2wOjjYNVr bkO8aVDjZFxvu7bmFHC3w4 rurwQWPwbqIQOeAF3eUGyb HPFqPD8aRfVbAMKiIzMpLW BhcGVydzEyMjQwXHBhcGVy zEZ7LPYmZX3aqvgjSWlrKF zoLUPwihK5VYFnoBEgN8Oa QVRbAN9jaijrKUV0PKFRNm ylBk8dmKXkzUqhVjHtFpSt YXJzZXQwXGZuaWwgQXJpYW v4eC7PWwkxPYS3EYGMOzbk WtyvePtrz8ZpgZYgVLJqOI xcaWQgNTEwMDAgXFxkYiBP CfKbPnX0Zmk7HQB7LqW9RT n8NHWLXWRyDhtuKQW3JuW9 HRj1CDJjUU8iYTdzqTLlFR duYnwjYZuzP869RTccOYQc G2LvE8VmCWvvVbDdXTjuZK WgPHTwBTgkBEFqF1CMHCLs KFB4BpMlZGXbZFx1KQgtQ5 FOBRMoUJYzNgA0QVZlCpR8 XSs0OQQGZu9jNKooWfHkXZ k9OCX4XUr8GxCnQKMsYhAi IMZmRHZmCMqtpCWvFV3ssO htCEMcCB4EWLPgNJzbQFCu JuJdU7IZM5cFCF8qQSywtM JjaFxmczIyXHBhciANClxw IXQdJY8MPSToEJteNVw4gl TbCSRdCgWiLCLrG91gi7AZ i2IwYT1IFXy0kyHyvppwgW 0iGGOkksXjEFnQxOSdlO8k fyHUJVgtJKMtU0CnkyVuNB bmZFGayb1kmUnuVKvqVcXw bGVkIHdpdGggdGhlIHBhdG vhliJeE7Y6lzTdGB9jNPUL UKDypO1dAPKlBDYhn4TwdN DrcCsfK5QygFGaDiQrb2a5 rFF0VDAqnnCkHRXtfRIoWV Wedi6vXQroNgHxG2H8DNTl AESbk66piAP9lzMrZwBbqV k2mVMuTLK9XA2kaHodmeVm n5z2xP6mRCIhw1K2PEJvz9 P4FXNjzbBgzPFnlJRgHHRf SW6hsmYbDD31GSNvYKhxMK boXCS5UEY4RVLzrXXzv5uz xwawFy1gQHcrXI3jBFryPL 54MKEpAJjnICUbA2JqF6J6 DSuuRTZzEZMkbVUfiE6nos NedkPndOo7ULSfTMI2mBOx eDskZDJcQnniqTO0HDTvQz XzgmQel7OopEl4iLCiZBzv XAFdeJ5dsL1hOMJhDMIhry ZIIwtnAEJrZBevm8IwUHcw cGljWHNhMzAgDQpcZXBpY0 7ml5BIi7Uju4jcuCnkk4Zp lTRhGU3tzMJeAE1Vt3qhOB LgdFLhNJF2BCjgm4czARpc YHJ3AXVeQoTwVNBgGM4VSf CfDFelMWo6THxtAYc4OBv4 KW8WLfIrKUDhZcs7WsW5Us IhSKj4YEmsQA1RYOU0YJDa CKRkUMmcBZH1SOXmUEz8RF IgXFxzcyAzIFxcZmwgXFxu K00mwOQuIWnoBdEoQRjthR rfYOUjPVX3EL7ROTGiImUw V3IBY6rGAZ6aXmyrjrTpGT AjxnCLDqgcVYNwBB0ULCTr XItiCRl4flEvUTJgIdQdOR AyK44cc0SEp1CrDY8EUUe1 ozCtcyzbiS4sOYEbwbLxz4 IzMFxlcGljWHNiMzAgDQpT fKYcmD4jaoZAWCrlZYTeW4 PdeiQxJAsjHAUmbu3edJdx IGxhYmVsbGVkIHdpdGggdG adYAGbcXxtqsOcA3O8wqHr BG9dTJYWJISavL5uESObOE LcKCJsBHZtlP7tXDH4s9Aw ovEmAXYIPEDgaFjcDX45gZ BjZWxpYWMgZGlzZWFzZSBh fmWsfsDot73dpxLqs2YyNH 1goTorGVaJUJlzLlNbPK4x EMCljsGdp3CuRH2wEEUviP IdMDAqqihzdBSjBDi2vZOs MKZwXxYntSdnm6AnJPNgBJ ecZB14kcXmUM3hIWwgMK5o QYvmXW1iJFGjZLKrMNVmEv YjjXZcRhAsiALpFlYsX02w JhJOuXFvu2ArN0nsTF1cjS OyUuucwVWoHPReoIaso1Xc wTRdPMYgc0CadLFmIUqlQF 9yQEY6Bk4nvYUlKJWuekF0 r6FqQAnfOOGnUolpIFYgTB hxy9ZjULTplURLx9KkYA7T XHBhciANClxzYTMwXGVwaW NOy7KnTIYJKaedaVcmDtEn pKXeJsT6QTFwuEUmFEM5RK 6maJbcPDNpZBt8ULmkCDVm R6WdZ0CeWMfjUhOjWAyoGM EvTYIvYSkeWEDfO8CWMBXh DQQ4DrRcONHaDPe9CNkxS5 KOHKDcZDOjUnZ3SFG2VxT5 PGe6NORJBk7xAGqoQcTyFV TrKcZ5PZe2ShSaZBNdNgOz WTWzEORsYLbmdYEqOL4laU xgKCOuIOBqQVE9UFSgsFWF q7YxNHNcILedTgAjPFXSOC ALOC2HHtTOZBDgZhKtkNZb RJ0DARQdwqOtIPyylQaxcK 1mtAZbP2vbIkTpZugqdUjc TmVzdERvYzEgDQpcbHRycG FyXGxpbjBccmluMFxzYjMw LFAqiRIHq6TnXSMMRyMtUT NpbWVuIEMgaXMgcmVjZWl2 ZQGelC6hHw2qfAItpK7wiN JfZRkrKJMxo5u0bXY0lXMw wTA0nEXekZxhBxDuTQ1swR XuWUTNFN30sKKxgfMrRIBp rM3mJYZeVUDbMHW9ihfhKR JIWIV0pUWjb0O3YFxjXLT6 pD4urKidLsExO2X2WIUbVO Ntr95ovTJ7umAfYlWoEXNr hq4rbR1pPZoqeqPdeZvjrn Kxw3Q3JDCtk1V4BNMsfcZh nLTdtSErZFYmEzT1NKLkJf N9HWLuDTHgySFtKQTyNE0t VGhlIHNwZWNpbWVuIGlzIG RmyVBkykDuZHOfwi26P3hb XYMahW1es5voDvNtZQVsMQ NieMXvwUR1OBTdrA0kxE34 sjZeayBDVU7pfYZoUJ0ZGK NiMFxlcGljWHNiMCANClxw UWZtJSuvh1OhVFdvzSjgMH AgZgFlFJxMiIxlACNTA7gc iCKlQAlxDWHVLWaDC4KFNW 5MZCDpfYMBDGM3MG5lHAjy AQMhQ7IsV4MizmN3k5vvrY xbh3LigRRkNB1hbEMuGP0M XHBhcmQgDQp9 Disclaimer (test code = [id number]) x3cboNRsTTThd4tzFJDelC FuZzEwMzNcZnRuYmpcdWMx EDqkkuQoYKefp8HrJ5TaOx AwMFxhbnNpXGRlZmxhbmcx EZRzQDP3lyQhJYOrYIogYK MpWPaoGa8yxYFvvFogQzEo GCEyn1ckwaHTJFhyWgJdY1 42NFRqPPwro0awz0OzUFMr gBOpo1T2NVBDxopysXy6vX ooA18iv4X3QdsaB4guKJKu LTDsH2QeFA2fQSIqIjj9QY S4BOA8QXYgGUTxS3QkMN1l LQXnzDOkCCn0f2ajzJyeTK HsJDD8r3qyRXhschBnDP0h zr6seLp7k8zrgpRqRYDoSC AunQAQXGSfC6HkrYhbRs5w eBo1mWqkBgllBGX3Ksz3JW 3bjx15dds3lNcmZMCypqrw UzP9XZecZHFrziduJSl3JP uyBCPtiIK4CCRhsTRdQ7Mn XMEmAN5vpdw4VKD0EDozBT ZdBhF7VGKqpVTdIGBycXvx YLeau219MRG3XbAiLE4mW6 Cjn9H7hZ9wnLScKDMxtEEs PmDvJUZeza3dqYEpJSsob6 ItHNA0xyQ3gHTkmETjCKRf QR00Mkmpz2KfPkzul6MyO1 6kmHN2QQurg1ytJT7tFkH3 qlIuZOykg6thpC1gBmZ8PD jeWB6cWL9sFUZauF2apjyf XHBnYnJkcmhlYWRccGdicm IcJy9juIpeWPK6STtrW0mu lC4jQnY1TDonY8wrzN5gAF g0VFjovCA4HSQqlY9kQU8t xkluk6rfOSqcVXesGDFnxj U9sbC3LSSinQZrM1SixB2i HVMcEH3afplfm6goGUC3CM weKKDnHEE9OyBuYSFvi2Ms imk1FvYyx4EokKYkMVjvA1 1gj485HBAphbUeY9uiyIDg nggrqYLnndlpXWrlekW3LZ RgiaLlo4WbYKYcRKY8WKfy VYbjoECiJOBpyLwdt6bhT0 RscGFyXHBsYWluXGYxXGZz MjBcbGFuZzEwMzNcaGljaF aqQPbqLhWaOYOtPXwmO6ng NpEfN8QcAWOoZhRbsWUbU0 ggVGhpcyByZXBvcnQgbWF5 KYtoS5q9PYSefmEwgVg3og EmAxDqONDvKEK8KYjmeXAk PQPdo2GusmnlgGUzGh8myU OwXYTlfX1uQIPvTTJuJTtx BO3xzCd3XMJWpZQgqLZvCb XWMRXoAM03ztCwHHNZopij m9N9XXccTPSqv2FuiVUnK7 fve7StUTBcr55mHU6gt5M1 m6ugJBZ1KA6re2MoNCKbxI QwsZOxOOJlm7Duijcfi2Hw RDMkbrWir1DvZKEeghOviN PvGFFdyaXpnf3gzpGjDJKz WEBaX7OkkvelqExbveQwTC Nxyk9zfpOhRVI2ONVGGINu DGUkx4LcaR1teZZKRRY3xW Lxaf8mrfXPyBCjRJIfzm23 GCNbWL2pQ7juOGFfOODyyj SmmZFyo2HiZJUadZY4xHQq HW6EKzCGg77yYSOdYJGLii QyNYFzcLijbLN4ztJ7jU2z IChGREEpLlx+IFRoZSBGRE XoOY9kauQcr5ReuoMvoKtg YIMufTJjg6BrmEOio3CvoQ oct8HelTNzpTAnPT3qJLWe clxwYXIgVVRNQiBMYWJvcm B8b4ZlTJLtVAGaDJR8jLmk djd7QZRfgZ0dAXAkK2ilgl ocFBrnVABdd1RdjB2vmWGS wYKfj3FjaPLqeVIWmWNnYI 1okzYsLWnIMSpYOQP2cvXu ORXlz2FpPWkhD7xhY69owE igsJo7bZZ9GEG3zE2xTcm+ IFxwYXJccGFyIEFwcHJvcH PxQLBkhStzyvZiI7JqslOq jO4zvSTfxaGoEQ3bNS4rA5 S0zEYlKIYbmgAfh3whJBkr dmUgYmVlbiByZXZpZXdlZC Jsq8RxHJfuKQB8QVhakcMq bmNsdWRpbmcgSCZFLCBTcG PekLRgFZK0KMerisAnboRs SS3ztA8zjYrvvV8ypLSrtI B9yieyNKRjXRNyuNieOSHc YN7wzLtxeA4oJyTxMgPqNE wjWH3sJNMiY8avyHCkJBBy VGOlG1fuNnJbqT4anZenTO xjZjJcZnMyMFxwYXJccGFy XHBsYWluXGYxXGZzMjBcbG FuZzEwMzNcaGljaFxmMVxk VbAmTQXoCWinI7tqLxGuT0 ZePJWiNjPbyHNrB7hiDBrf EDC1NOQvQF5cbFGwIW79bJ Jsw8lrGDexqDjpow5tD56p nQGgSErotXsoXBWew15lt7 NyULBeovOmbw7lYYWlqfZ3 xD0wOOMjsPrsJNIdfDBfMN Thi8HxCPhppVQwvaPtHXsk TWXnHRYpxOMdyxN5dfAoki RelmUxXHEkdNtmLGPxe8Zz YZBxNZuvg2Rolv9dkWGyMU HvrgCKqGcthOCxcX9kJ6Gy DJYmEEYsbf9eUTXfuD0mEE kkx5YnatyqLRPsSEMpYFOn clQirh9pNSSolJCOQW3XKQ vgmVNvw0PstmDpS6eDYGD2 NUQwNjYwMjgxKSBleGNlcH TsEBNcyb44QIVpgO3cnTyv DMQewK0bbY2udUyvfE7fUn RjQjItMYoyQU8aXMZsM0fw jRBcDKJzNUZdC7qjFgYdjU 9jaFxmMVxjZjJcZnMyMFxw YXJ9fQ== Embedded Images (test code = [id number]) [facility] [id number] 19:23:05* Test Item Value Reference Range Interpretation Comme nts Case Report (test code = [id number]) Surgical Pathology ?Case: [id number] ? Authorizing Provider: ?Dominic Keita MD ? [...] HPylori ? Final Diagnosis (test code = [id number]) r6emmNVjQTAcj8swAOWkaN FuZzEwMzNcZnRuYmpcdWMx LEiaxiNhMJuqrLfbWDA6WA ZsFU5stBfhnXo8zMofPAJw ubZ3tUEfNMelg0nwZVF6l4 lnzcwiCKBcXLtuCp4aeWLs hSexZgDbRONoJVu0tE80MG WgxK0rzKOcPCc8ZRZllLTe alFjErZaZCBdyDFejDJ4GM GwER4whxhcFXxkLGljWOHp jvC7QLVdyLNsN6HgMAHwAT 0oyfyqPZJ1KWorKEShKOF2 HbHdCRDup5Qgyhv6CdYkmW FyZFxwbGFpblxmczIwXHBh sxZOQjAZUX1OGEJTAROYK6 zNXGDJZZ9BRPPFBvbypPVe DNDmFODqEVMSJC6STAExW1 jKPgCaXS3GWNThHPAdxOEh QRZtfrTHJsSCAA5ZDH9PJA wgQklPUFNZOlxwYXIgICAg TBFpZTcDE9QZDGPsLTCVX7 MPWOoDUNhoQd8aZJFJDH6R U6tSN3PFRIGXKO8AWAdbVG JqAGFqKGZjYU7TSGhfGVTG BE5TUTZQZSEKVMmRNAFOZF ULNNwAYDBAR4HEXHaMLFEn htzvDFJxWw3gD9ZMVDLDNI wgQklPUFNZOlxwYXIgICAg EGXvBBPRU8UGJaVQNM5FP1 5UYLIHHSAYPX8RNKRWQNmF BG4RYXPERLSVCGGJK2NsrD FyICAgICAgLSBOTyBFVklE DX0UAYXTLpFJHVoKROClKP lTRUFTRVxwYXIgICAgICAt TI2MFLecXLDGPH2PKZZQGt dBTklTTVMgSURFTlRJRklF CEGFKAPQUJ3THr8NOTXTZb xwYXJccGFyfXtccnRmMVxz g9SoU8RaEkSmJEyffwUtNK HcIbcgfhksVLXeTRR0dxNk ZPFcPVceCGHnALubPg8eeO QtpSylRiSlCSDop1oesgJV QPfqMmNeJ150OSCeXWxao2 fkz0QwBXUmiBGxv3A3IOBF iyvsiNa6u8ehXzRrNrS3hW KvSDqtF3nwmeHzpCWxX4Xc lOZavYe2zJqgT61zv5V0Du fpG7bqOTNgRHUbW7SgGX3j PMFyRav6PZK4HOY3LAXiFU PrQ2KtWY1bEOXjnHWhJQf6 u6hfkEusUGDnVXP2h4kcFZ wpgjM9QI7vkg1srRu0l7py czEgRGVmYXVsdCBQYXJhZ3 RxvWnfEm8npZa2bJzrEteg JAQ0Cae5SQ3lhc82zje3uP msPFYcygnpKyC2IIpdGPBg fjirQPz8DWzlCBCynGX3QF YzwGBxZ3PdJRKlWH3zugw5 YHU5AWcxWKCwLwB4ZCPxyS DuOVQduJkgRAxod081KOY8 YjOqDE1fW6Rgc4R9hP1bnU HxOFGpwFOsElIoFZDrxe9f zSAdKDyms8FfETI0qzM2yE QqtOXoCFWyQL15Iktex7Uj XrjaNFK9AEAzefEzi5Jgv4 ckZvCtdfGkC5brN7WjJMBw LOHxEGYwNnSnnuLzy8Xbf0 DkkDFviDi6l3ptJFOcGPOi cUdip1zsTAZ4AEMvC1S9dP Odo7toGHsaGKWezXH1ibJ6 ZUGghJZhX8PlxU0jIRGuSO 6ndij5n8poUQB0RLguBBRv SgZ8szI7IXCiiOOmFURkkI uuXSlhb125CEQ9SrGsZGWj f2QvC7NgpKjnW70ldBmmL4 9oATEpeReumM2uwCgvvA1i ZjBcZnMyNFxxbFxwbGFpbl xmMVxmczIwXGxhbmcxMDMz REinG0sjAnZpKAPndCmaWL sky5ThOWXzYKHtBsgvncFl XHBhciBJIGhhdmUgcGVyc2 9uYWxseSByZXZpZXdlZCBh zTqqp4JuI7thEQ6lE8GrqV NurgGihdXlZHwrCIJxr3x1 eDEhxOqhf1UveXTzTE66np QgJHIuBUO2VWEnt0glXZ76 jfaaMcIqzO49rnKvzzWwVC Vng6pkD3zawOMbx8Zxe7Er koSlVGmbg8CdRH9zkZBcdu enhMT1HDIgrMXiivIlraD7 gSozBCRjqC3quG9uvFkrqM 7nTyDuToIxUYdsBP5uLUCs W2uqsPNwHKNlCPMvU9egXp FxsS1ggHudVmeghtJ4YCXo cn19 Clinical Information (test code = [id number]) Shivani Schuler is a 47 year old female with IDA1. Gastric polyp x 6 r/o adenoma2.Duodenal Bx, r/o Celiac disease 3. Gastric Bx r/o HPylori Gross Description (test code = [id number]) i6ajwVYzXVYwvKQFDYM2YP ZvNY8nnMxiyWn1sZocUMBb fsH5uWMbBDsnq0meTGU5l5 fupfTQNanqBWWhFH5jQVzj GEFgOM6pXgZiACIlUfHfIC BhcGVydzEyMjQwXHBhcGVy fWR4AZKpDK4jdtutRNdgGO nfZWSabeI6VKXehQIoC1Je YNSySA8tddmdSMD2AWQQBs uwBf6flCQasEwuDpQnRbKo YXJzZXQwXGZuaWwgQXJpYW t6nS7PDxzfKEZ4BIOURksr BojtiYxqt4EtuTSsIYDtCR xcaWQgNTEwMDAgXFxkYiBP HuWvFrD6Oem8CBG5ErA6FT d7CJFZZVOlCvkjSTU4YeJ3 EIo1EIFgDH6kBCmmdHZbDO ofPprsPNsfC469ICquCNGx H3IpQ2PuMLhlGuXaLXsqNS HyKSKiDKpyVLBiW9SNCBHi CQW5UkMaYFCnCZc0FVqyO5 IGHJChSYBaSeT9NPSyYzY9 IJc8REJYGd2kMMnuGgNgDQ s6AOE8UIu4UaYwVDZaOoMc EJPiIMOfUOgzfJUlWY2snY lkTLKcBQ2QTXUeGThePEDo VaWgK2NMZ9dPRM4xQZpjnZ JjaFxmczIyXHBhciANClxw MKChAK0VWNXdLJplDMj1mo JdLVPnKsYcYFQyU44tq1GI j0OeIP8RMBw9bsKrhhiteS 0gSBHknsUdZIvXgEBgdF9x wpGYZHmnYZJuY2KvenFdCO rpABUhjn2eqUysXEeuWwUc bGVkIHdpdGggdGhlIHBhdG wslsDzU2W7rkXkPS3iSEES ZDMroW1wXYCpGSLlq5MpyH FqpArpP8MdbNIkWvZsk2g4 gQG6JJEfbjUjYINajMMfBR Iysj7lFOzlDxDoR1K6PYWx QXVgh57szCS5qlSbMeGdkO a3gBFmETT7BX7maXscovOj a1m5gB7fBEWfb3X0MSKhf0 A0JYDuzzAscICymHIxMXLn ZF2ocyTxVQ47FEOqTIiuYI mqSOP3GVE0WSWtoKZgg0hf aseaJy2wHLqlAX6rCBrgTI 56DMGsURsdQCDjD0ZiL7R3 HSlkOJDcZVDewONyoQ3rsf AxfdSjpAx8KGFuLCA6tJYw nQuoIRHgMfbhxMX7PFBqZc LhwtVap8DkgRv6dCGlEXyh KFRweC9cjF7zVIEjNMPjpi NLFctgPREfQMfar5UbVFjo cGljWHNhMzAgDQpcZXBpY0 3ac2WGd8Qzn6uekSsjc6Ms uOZyOY7ysDNoLM5Tw1ipJG BclSGtBGX3AOsng4neMIur CKA3FMXbSvBvTQBhZA1DEu AbZTswABq2VCjmSZz0WIp4 YL2DZfXtNIPsHgm2JdQ1Os IaRMg8LRryAR8WQMQ9EQDk NPOaBVsyOZS0DRFwQJv0OK IgXFxzcyAzIFxcZmwgXFxu A80flOVrLWqtYoUzOFubfC mfETLtBNX7TD2MLDEnYkAb G4LIY9yLQW4aYebclxYpXQ EbwlIVUjfiZQXtFV8SXFSq ZQuyTQk2vaJoWQYwCaUpRS WsF79tx6BXn2PyKA9ZPJa1 meOqbuirzK7aMTPkgvOyk5 IzMFxlcGljWHNiMzAgDQpT qTEvwJ2hljICUDajKMDqR3 FttnAbRTaqYZDpce8oiHkb IGxhYmVsbGVkIHdpdGggdG tuDMLdtOxvzmDcX2Q4deYo DL9zJCZHIAXxnA2hMIRaUA FrPRFpDQOmlN2nWZG4h7Ox cgIsMNGKQYAbwGczJY67sQ BjZWxpYWMgZGlzZWFzZSBh zmBnprSvy63csuPgn6EkRZ 6keQxcYKxSQZibTgFjQI9x NCYyeoXhq1AvQH1vNBDeaH PnVIMslmxsjTEbBQc2iVSn LVKrSeOeoFeud1PrSHBgEW wvHV02scEeOI3jXBnxIB3q VAswSU0cWOBbIJIjIMUrRe FskINoCrTvyRKkFhSmO98f ArYSjMIog1XaA4baMQ6fsA QzHthpiHFkUPCyiRnyl9Nu oUSlKFYra8WsvASjXDbvWE 3dIWY4Bs0fcXKtRXCjlhR7 b2IyKWcpPCGcZdfmPZKhTW wxy9SwZLMmsTGKa7BeCT6M XHBhciANClxzYTMwXGVwaW HIx7FsWZLDRcpirBnhDyCo lBNzMeA9OYEupNVoWAM3OT 5tdGbrNVObNTx1OPwnALYn D6JpS0CoRBelNdPpFEwnGU HeXOJoKUtkLBWqL9JRKKHn RZI6RmBxPFSvIAq8MTfzP5 IOKSYwFKKaLdS6HCR7CrV9 LLz9OTPVAe2iAMiqHoInHF LmUiJ1SPm8HrCzRCBpPbCc QWGcPKXbAPjurYRkEP6qtP wnSGRsTKGyWUG0RUDecPBI l2AqWWDpCOwoGgUuFJMZXL CVSH6DRlHWRGCuClZzwKRd FN1FGARbeeKlMLmvpLasgX 4sgRTdZ8hoZtFmHqdpqOnf TmVzdERvYzEgDQpcbHRycG FyXGxpbjBccmluMFxzYjMw IOXkaZSRv6EvZPRBEfWjUK NpbWVuIEMgaXMgcmVjZWl2 YTNxgW3sSk3bwQZaiG4kyA PrVUotSBXxy9k6pRG5zKNj mML3lNZfgAvgDwMbXO3adO IbFIKVRW25eJDadsEiDOUu eC7rAGCbIKXfCNN6qpeeOX FKOIW7aWUli7X7KGexVPW8 uU3hvTgaOmXeN1W2EZKyMQ Zdo38gjXT7vxLkOfRiBGUo qd5tzX9hELsvicOgxYjagb Zhm0A0JJZnj0A6HMQajkVh jNUehFUxSQCgQiN5GGEmVr B0BAKdYHFchUUyJLNcPL2v VGhlIHNwZWNpbWVuIGlzIG AvcBQthkSoJQReka05U2zd SKTaqD4vv9dgVpWsGPBkKF SriCAouFQ0YLVhvF1exA79 fjPzjiYPYU2kcDKgQT8JYT NiMFxlcGljWHNiMCANClxw ZEWeSQevi2UtZHmwmCnkDK JfWdFjKMsHcUgqDASLP7ui kKVvROmnPMWODUiKW7HKJL 6PXRNfaFPWYUU2AO5oERqr PKGtJ3XgJ3WravR4y3mkeW gum5JvmSApLF9ytONvYX7M XHBhcmQgDQp9 Disclaimer (test code = [id number]) u9pgfHGgFAHow3jeCQCjkV FuZzEwMzNcZnRuYmpcdWMx QFfgapDwJGwnq2EnZ2TyRr AwMFxhbnNpXGRlZmxhbmcx OCDkSKL4xbLjGCCcYTbmSR PcWLbdMz5nvDRwpEhgFcOg UPPol6xzxqGPHMkqQkRcB1 68FVDkBArtj4bys9GcLBOp rJGhx0U4RDYUlnpcgGf1uS tgI39mr1M9AgphL8byGCTv BCAhR3LyDM3cLVQkUvn8NJ P2ROT7WKVeMMViX1IeIZ8g MFIfkDDpBSm8q0voqOomKQ OqGPQ7v3rpCCqqqlKeOK7t da1mrOu2o9eitlOqCBBsAK MvmWTWDFHzI1KooDuxSn3u rXh3lChwDvvpKMC6Agl7DG 0oeo34iug9tKngKBHxvays LsB6JItpITKulzevMQt3UI qdKPAppRS2SHSmcWYnO0Da AQKyVL3xyqx8GYZ4WScsFZ FeGaE7RRMaoNVxESByyYip EUqhb128GVC4RyUwXB7dR9 Jka0H3cR2efFEkQGFrsSIq ShIvFOLbbl8nfJPiVKlyd5 PsQNT1stY0aHUodKSzAWBj OO49Ixpfz9XiNbrkz8GwT0 6fyTB8LJhkv0pzLY8dOoM2 yqVtOXbwp4fleI1mTtP4JF mpUA3rAI5oWXFueO4tbpzt XHBnYnJkcmhlYWRccGdicm KyDb6qeWjsRWA0SPzgP8hk nT3jKsD9KSndV0vpnV3vAP y4HZccqMV2KEXhmH2aLK1l urgwy0geEEmmFLnySQTtte L7opF2UZFuoKBlQ0XhbA2x TRPdUB5akmudp1bdKRH5NJ wtSDVwKMD7GoJeXQKrd2Bv rec8FeYhs7YbgDGvNTurY9 3wm971EWTgdnLiH7oepXVb yxfbwSUuhtjqKOcnhdQ3AC GrrqZvv2FrCAUdWZF1TLra XDgcaYIxSQJgkXntj2yzN9 RscGFyXHBsYWluXGYxXGZz MjBcbGFuZzEwMzNcaGljaF ysEQhsKjFyHBLmQGkbJ8lq HiQmT6LaIPZpPeUmvZKpP6 ggVGhpcyByZXBvcnQgbWF5 SOymK3f1FDWvetAkhSq6gc UqVsFrXTTlXWZ9DXbtxYLq KUKim7SqsdvhzNZpNk7ruZ QeDLUjiV1gDJCiTNQoZOrf IN5rjSo8FEVXvMUxbDKeAs ZDKHAxHO54beOdYQQDbqvs d8Z4LAusSONyp2TvcWFlJ7 zkw7DmWPKqy09xXX6cc2X3 z5xcHJA4XF1nn5MpZPLwjO HlkWMmBSBul7Larwald0Mb LHWgdzMnx0HjNOBqfcQujO RqACUoupHafx3zoaTzCHMk FFNjT2KtlvunqOnbmtCyZU Tvwz4pqtAzATZ9VYLVGLUp ZRTsr4KkpW3thPLMKEX9lG Ocet2psvQXdXSbOEVfjg43 GHJjHZ7zF5wsOBWvVSBmwj RmwEVdp0RzQARheWJ4eQKi WA3GItIGq49sERGfMFEMtv EkATPtdWnatPG9tpP3sZ4w IChGREEpLlx+IFRoZSBGRE AfPV2hpfQpq1DibrIqkNym DMWvcJXvo0AjfQGtz9CbbR rzj1VdpSEyjZXlVV9cLYYo clxwYXIgVVRNQiBMYWJvcm O0k5GmMFLhSKDcAFE7hMcr cle8EMQqjT5fPXFcN1ehhi vrSOklLYLtm3QcbT8cxBKP zCDiq4DdySHrhMZVbKCnNR 7puiQbXDmBXBgXPLP6ouHk ZIYkb8ZlQRliK8esI76piQ vdmRl8cRJ2JFK9cK2mYli+ IFxwYXJccGFyIEFwcHJvcH GxSNCzjVwxrfKbK5WgkwKt gF1pjGHbdeBnQI6yRR5dO2 Y3iNHvELCvylChv8riBTsc dmUgYmVlbiByZXZpZXdlZC Uoq0DiVHekOPS4SAwmbgUu bmNsdWRpbmcgSCZFLCBTcG RzaTSoMVZ5LSzmwrTbboQu CN7drB1lcYjwvO6rjSNxlQ F6ipivHMPzPTTilAcpTCIs PR6osUbfdW1fWaJvAhZxRF pdEQ5fYZSwN2babHXxXZBp DCEoB5pyEmKbyG6utLxwFR xjZjJcZnMyMFxwYXJccGFy XHBsYWluXGYxXGZzMjBcbG FuZzEwMzNcaGljaFxmMVxk XvPzKBHcUYcaC8pnSuSgJ8 ErKTUfZpCmvYIxO5brMZed UXT4PCMeBI0xcUFhPJ21yG Jcg4jhZMzpgFqcfs7qW07g xGMxYUuohRgaROSog88yr4 VtNXRmwdMstx2dFWByjrK5 oW9bIMRtsOwmWKGqvDDcTS Xye1TfHSpeaQQehxRrLXqd UVRsNEGmwKEmssV2onZrjq VoneUpXQXogDzuMPZiy0Ez UEOxVQnwd7Xcvf0ayIWjSG EdleYSqEuzvKLflJ9eC7Ed UXDsRHHnig6xEPZkrW6jIC tuq2UgzdhaNQNpTJYtHQKc daJqrs6cBZPcgPOZUA7TOK otvATah8AsdrMoB7lXMWH7 NUQwNjYwMjgxKSBleGNlcH HzBNXerl08HBKxwT8wrLff VAOcvE1wuD4xqEcjeB7xCo CsIqAzXPhrYW3eAZJoL7me cOWeZSSpVFNjT2lqUhFviG 9jaFxmMVxjZjJcZnMyMFxw YXJ9fQ== Embedded Images (test code = [id number]) [facility] PUZL6022-78-93 19:23:05* Test Item Value Reference Range Interpretation Comme nts Case Report (test code = [id number]) Surgical Pathology ?Case: [id number] ? Authorizing Provider: ?Dominic Keita MD ? [...] HPylori ? Final Diagnosis (test code = [id number]) u1zmkIFsIPDaw7dePZNjeS FuZzEwMzNcZnRuYmpcdWMx UKmqnwZcBDypqZcgAHG3IF IxPK4sjZsynWg3pIslZSQo lyW7fQPtDSmaw2unNXO8h6 expbvlGSWgVBrlIz2pqNIu sYhlAcYfREUzAXr8yE77PH KrxT8dlMIhEVf1MPZeeTEr ddNiCwMpSCHsiKYieXS7RA VsXX6bjkucHZriMCwiCIPz gbL3MCCyqDXcV8XdAQLiSM 7uroicWYR5VCjiHISqOGN1 JqYtPREyw0Zsxhn5EfGcsD FyZFxwbGFpblxmczIwXHBh rqKBZkWFUU8SDKUXAZYDS1 wDVHCKPT1ATMXZCxqewCCq LWNlNJWgHUUSYY1TNZRiG5 sTFjDnTJ0ADCPlNPIkcDDk BHDkmdCHRxFEVJ1AXI9HHX wgQklPUFNZOlxwYXIgICAg MIWfWTwYP2DIFXTzBGOUZ6 KIRPvLWEhfAr2aHUYEZY7J Q5zPR0SQXRLBVQ3LUIfjNU DqGVCmMIJfQJ3LRHibZSWJ YJ4WRFICNCJESCaUSKDNZD NWLVvJNILLF3SDCMvJCTVw oggcZBDwUh0aZ8QVPMTHZY wgQklPUFNZOlxwYXIgICAg WMBuXRRYU6ILEfBMIX0FV2 0LLSSNEPLPRB1HAAQDLYyK BN2CEACTLMSYIHHPF6FrrH FyICAgICAgLSBOTyBFVklE RQ3KUVEDCyEMDHrALYWlSE lTRUFTRVxwYXIgICAgICAt LS2NNHnyDSQOEC9URNRBNz dBTklTTVMgSURFTlRJRklF XZKQVIHNKR4BXz7IRODLLb xwYXJccGFyfXtccnRmMVxz a9DmH5YiOsFjZUbzmrQuGO PiUbbotbmeDBTeSJR4paSy FYJrMBewXRTsNAgpTu0sjE VqpAyiAeZgJXQpf9hmhhRP JYlbExHrO607QVWgPPeuw5 uwh1BzBAPyqSXwp3J6PVKH xspbjTh0o3btIgMjPnM1wA CoTKeeJ5epciHrySFhY7Zg xSVafMi4bKttM65oh9G9Ti dlC7yeXVHiIDScL4LeSB0m PUPePnw1UQY6LJS1UTNhIQ HbU9MqNA3gGSYbqZPmHWa2 z8ufaRhxTJHgBWG1k8ktFJ btqkS4ZX1qsk8yaKa2x4xx czEgRGVmYXVsdCBQYXJhZ3 GspXebFh8weOa2nUlqBvnv QYX7Uzo7OX0gwv17fsu5iV mqUAMqccxwWfM7ZGvrTYQl mkmrKPw3JDmnIKKfcRD3LF IhmLGfH2EkSJHbUO0cgkc0 KFV3BYicXSAzUvR5PMMyqM WcETEkfOovWWegn143GFX7 KwMhOH6wF3Viw5C6pK3lqY DkSVHwmOTrWlFsNYWprm9d eOElEPpdy4BxJHH9ahQ9iP GciOXuBUZfWS70Yyvwp9Xg KubjWZV6EDAwznHfl2Owx9 vxYqZsevRhL9hrY0YfUVAb JDOaCWBcUjOrpmIhd6Dco5 OmvHLbaOz3a5dsKULrJGFb fZofu0rrVXL6EYFbG4M4vH Ldq5rfNZdsLQGexOK6iuO6 UEQbfKNyR6IshH2yBGLlTV 9nhrz2u1wlUDP6BUmkEXAm HmX8bmY7FJBjsNSzGPNoiD ptGQsdp387MII8HjQnNUCg i3RkL2EcpNozX00bnPvvN2 4rFBRukHlhpJ8cnVnccH7b ZjBcZnMyNFxxbFxwbGFpbl xmMVxmczIwXGxhbmcxMDMz BJgpT3efKzZrNCBzjMpoYC jdc9FjOJGzFVPdIvnitiVm XHBhciBJIGhhdmUgcGVyc2 9uYWxseSByZXZpZXdlZCBh iAfbv5QxS9zjJP8zK9FceH IaptGihwBgBWrsGODuv0c1 xKQikIxjj9GhxKPdDI72iq QpFHKpIJY3IGKtd9mbJH73 bcilIaChyE96zsLmnlLaCK Dch3ygF2rvxPJrj9Rlm9Uo otRoGIszt4DkHI8ewWSqti evqCY5IRRbkZZnamJlwcJ1 eFlyYYFycA8feZ5oqYlnzL 1tNuZvMfXaNSupYC0sDZFp P3rbqRBqNKTcXTLkJ5yfJy JjlB1thUbjNtweqwN3MIZe cn19 Clinical Information (test code = [id number]) Shivani Schuler is a 47 year old female with IDA1. Gastric polyp x 6 r/o adenoma2.Duodenal Bx, r/o Celiac disease 3. Gastric Bx r/o HPylori Gross Description (test code = [id number]) n0smwBRpLTGqaAAVGHD1KI QzIT2yfRotnDt9hHzlOHOv ldE0pFIqEWaag0fzUMW9i0 fudyTYWoynGHDrII0kIOkv XVMrMQ2qLvQrGINsIcBwTB BhcGVydzEyMjQwXHBhcGVy gUO0WSTvUE6pzcshBMobAN tfFHKiuvI8LHUroVYeP6Fq TTXrEJ2hurgiJSG4LMNGHj ncWi5xaDCtsXyhQcDaOkGg YXJzZXQwXGZuaWwgQXJpYW o5bZ8YZdgcPTR1GVNDJxpl QetotFkqn1YzyKCcKBGqMO xcaWQgNTEwMDAgXFxkYiBP HcObIiU6Jey4MPL4NkB2JL n5LKYJFUYxQktzKCT9UhM4 WEd2SFLoRM5uWMkwmBFbXY mmQhsiXVhuP834DXcgAYMb B5HmM8DzACorZpUaEDncKB FtUBGnWXlhHJJvC3MATWQh QIP8SeEyIZNaWQs7LExyI1 OPRLQlDDYqRkB8UBJaWjS6 UFi9UMHLQe2rDNgwBgBvIY a3ZOX2BHf5SuDrIEJaZfBx UDMtPUMeOKabcGAkRT3mfC dzJAPvWT8UPOGuIGxgNKAy VcRhA0LWJ1oBOM0fMUktwL JjaFxmczIyXHBhciANClxw ZCSoUX1ERTVwCPiwUVr3gt LrNPRrEuRrKBMeQ55sd3QZ r5WlSC7JQEc6wgZreqlwjI 6vEQHivvUyTOxNiEAmjV8f joYOBLxiOYDjQ0PfkkDxCU vwOILfmd0thXfjNOgcXhEt bGVkIHdpdGggdGhlIHBhdG gpjeEvY0F1bqYxLM1sERJT JSLlnF4tFCIrLSPhv6NxxT GexFpiX4KagEThQiXqw1v4 tEP5IXMbloUhPPYprLCuTI Ionw5yHKnlJoEpW0A2SHZd JOYjk76wrVE7ykYsNqUlbT g3pUEkPXQ7XV8yqYdvlrCx e5r4cC3eNIRjk7L0OGEgl0 V5FEBxezJccKIivDGbGNBh YQ0rjkElHI97PARnGIpnVP zaFUY8CIC7HULelCYoa2sz szctXa0lDUphAG0oMErmOE 74QLJuEBovWPTyF7VgP9C9 ZVoxFOToQWSopLHheF3urs ZtnxKguEr0IWCvYFH7tFVa gAuhLFOyOyowkHY4NTGkCh HewoOya4NdjFz7wRMpPWco ZRQjbE7szX8eFJQjEAYmhx MDXnonSSBzPIhfl4IkSTbb cGljWHNhMzAgDQpcZXBpY0 2bc4WBi7Uws9btvTmrx3Rg uPWiKI8qqSJfKO1Hl2qiTT YohZNzLHL2NRzai0ssOTnj EQA6PGKnQzQmDRBcFS0TBp RcATueQOk5UTfsWZa1KJl0 TW6LLbVdIXLdGiy4UxR2Wl LtWQe4KOhrCN8RYJL7FHVl JOYhUXojPUK8DGQxBAt6QY IgXFxzcyAzIFxcZmwgXFxu U67ugWOrKKhoWzEiFHshpO wcHCKaCPJ3NI6XKKFvPhXe C5CET0qMOS8bBssatdZrVY ZujmSNCoclWBIgTU8NLZWk SEpsOEo2ykDnFIHiVnGtAK IoK11yx8DRu5JuWJ7PJEb4 umXoiteuhJ7lRNOxfaXlg1 IzMFxlcGljWHNiMzAgDQpT uOBemD9pdnGXKMwsMHHyV9 HzicMvMBlqWCBxhh1qpMgo IGxhYmVsbGVkIHdpdGggdG vpPWKpmLkzqbRdA0N5uqBw TR0yBPHUOZYchC9rJGSbHA UwVZFrCOZcxT7oYKP7t9Wt scCkONMXDDMncQmwZY91dT BjZWxpYWMgZGlzZWFzZSBh uxSpfkLhw16eegAvn4FyDP 2hjSqhDIsIGHaqUgGnNR8d XVMomwUld7ObDM9aLHIhtN MrGPFxsifahDAnDLt8tZZo LMWpAxUohYrkg2BbTQVgJX kyNL27igIiYG9jCPtpSZ4w AFlgXE5sJRGyQKQiFYJaNu LunZHkIiLebSHwFcKrE54i UhUItFGwr6GzA6vtBA2uuD TfWkxwtIBlEWMuuGgax6Ou vUOtTRAyt8IttACfTFpxPZ 8ySVT2Ey0geELbCIVksjQ1 n8QzWEjsOCTxGzngIAWpSV dxa1OcUJSloGTCe7ZlMM4X XHBhciANClxzYTMwXGVwaW TAi8LaJYSHZtauwYohBvWq wMOzUcP6MJIisEFiUVK8BO 3lfUjzNAPoGFt5XJtaTZHa U2LpU8RlEPmaXuBpWZueZP UyTLKzFGusANCzR2MQPZGm AJV9DsXwAULeJSw7CQwtX5 FNAGBgSBUxOiI7HSE1MyE5 DWd0OHVMCm6oGKsoTlYyLM LqNtC3SMk3MgWcFRLaLgPt BEDpWKMdKHinkLOnVB7mvJ trSGLtDATaOLX1GYFwjDEI a9EyPFGlNPnvRqZwDMEQTF ILXK2SCxOJQJNjSnSbxOMa EE5HYNWwsqOuVOgiaBofcU 3pdTVpW4zdIzMoUkxhxYky TmVzdERvYzEgDQpcbHRycG FyXGxpbjBccmluMFxzYjMw HYUfpANTe1SoDDYPXxPvSP NpbWVuIEMgaXMgcmVjZWl2 QUTbgG2uQh4xhFIcmG8jtG PeHLmnXMAhi7c2lZU7xGNt nHQ0oPSueHqeZlEaRJ0wyT LaORXCRZ47cZHhcnDuDWJk zO8sPQAxFKItPGW1dzosNB TLTUU2mOUpt2X5ILvtQTU1 uR4yoLdwSzZwI5I7ZKKlGC Ium95ksEJ5zrEbHgWvBMIs iy1cpY9zHKamlmMmnXydtb Jbt1X3QBLkq0F0YLMclsSo bUDtuAHgRSBtLzE3CAUtKf U6HYRbKFVahHFaVPUoAG1n VGhlIHNwZWNpbWVuIGlzIG EubDRgtjDxMSHpby25O7qs QKZxuN3xa5wpHwPpDHDaAS AmcHLdxTU7MVBwhJ5siA68 lnQxitSGIN3eyGYiUJ5ZCY NiMFxlcGljWHNiMCANClxw VKGfPBsdp9RrVTcrbBejDF NkWkWaZDkJhZwrRHNUU5xb sGWvXKvdEFCNYMgHR0JXRE 2YQILqzBJBABV1TB1oNOze PWQgT2NsE8EbquN7x5auyL zsy4SsxPBrDL5dyVJeJR2D XHBhcmQgDQp9 Disclaimer (test code = [id number]) k4wxyXZuGPShb7zrZUQsaG FuZzEwMzNcZnRuYmpcdWMx VVlmthWkFBpug4MmN8UdTs AwMFxhbnNpXGRlZmxhbmcx VQMiHNT4ncPeBMOwHGvyLL KnXPatUn9obKWdyHzoChGe PUAhh3brijJQMXobJlKyB4 57UTXhGKbvv2dno6SnSTTh qFFwj9D9UWSNxamhtVo7lZ kgF87fc1M7AgvpV8qzCYUj NXJnV6EzQY9hFEZjJhq2GD I5HFL1NVTcPKLcH2UeCG2p FQOveEAwTCj0p9vfdTmjPJ WwBKK4h1xpLUehxpZrUW3q bq3gaXm4u7erlmNgTTBwET CivKDUXNNmP6VitMleDv5m fTf0aGwpWrygHWF6Ybb2QA 3uzo61eng7cBsoJZQrhjeh NiC1XFswUKXmchejNQz3BQ ymKYJmbZG5FGPsfDMaB2Hx DJEnXD3bxgb9PLM3CIteRV BhUqL1VNItvGXbZPIycJtz ZFyyw309HQO4EsQcUL5uP4 Ych2T5fX8ocWCcXTJzmQUv UfRsAQOnin7qoKMpYBqne3 XvPFB9erF5kCIhvSNnXVRf HR07Uasyu9MtItina6DcB5 8vjDZ2ZJscd1hoQP3sLkG0 ieXlWHrsu4rtrG9zZcR5ME hqHR2aEI2oLHUdhB5bhnau XHBnYnJkcmhlYWRccGdicm YxPk9mfLdsSBA5XEqoT0ce zF0hVyY8SVpcI8dszM4yOS h4NYhmoFF9DEUmtX6bJE8v lxfwn7eaHJupBHybUAKexb C7zbP9RABpyYBmV8OhuU3o KVGgKG6dkmkix9fdZVH0QX ugXFMvVDR1DhTkSTZcq8Mr dyj0OuGen8QfjUJlGWysT3 8ps611PPDbxcCeH5ylfLVb untpjDPuqtvbOLvgzaM6GX TmluZzt8EhMVBgWJF9SFpo SFnlgKPaRGVsaIepq5fnV5 RscGFyXHBsYWluXGYxXGZz MjBcbGFuZzEwMzNcaGljaF ekETbdOfYiGEBaGQqtE0ov TgYdS2CtJMDpMqUqhBAmH1 ggVGhpcyByZXBvcnQgbWF5 HWhaQ1g0KHSorsJftIy7pq IbKjPlNFLiAPP5UUyjiBPp NOYhe4BdnvlftNMiHi0kwW IoKREgwN4nEXAySEBxVOji MT5ayJj0LPTHeIJezSYlPg THNPReDW53ndTfSCDHvjaw a5Y3TZoqAVSik0AqwJCfU8 ucq6TcLRPro79yEV8sn9E5 s4ihVCI3SA2se4LeEZAbrX LwzDDkJANgp1Mduvdrq2Dh IDVicrYlc2MuVWYsgwVjuD QwVDDyneTqhd8hshUlSQDh LGXeU1YorydqlSueuqEkSD Riic7faeWcSYK9ODANBNJy UNNsq1HtjU9ceQQRLAB6aX Giro9vhxZTvMWaUKGmlk31 IPTtQQ3mU6awQGBlHCKtjc PccIDro0DfNCHyfOC1qUZn XL9FKxWBn06bROPqXJPUkd RrPRQbyJbhdNP7yaL1rH3j IChGREEpLlx+IFRoZSBGRE RdDS4asmOrf8EtkwQbfQep BCEqiQKjp0RtoEFcr8RbbH mec0MfmYMroKNjSO9tRZGx clxwYXIgVVRNQiBMYWJvcm J6k6EkTDHcVWAaTCI4tIif qsn1FOWozR4gLGYeV4xfug vvUNubWAHnj2EixQ8wdPQE wZLdr1CmoSHehIDZeSDlRL 7ylkUdWCdBEQtTSAC2azZa URJng6UtMNflK1oaX40zgS uvrRo6nSW7KVS1kK4mPms+ IFxwYXJccGFyIEFwcHJvcH MbNAZbrTkiumGbW1QvjeKj eU7njLLdhkEkUC6iRP1mU9 W3vUMgYTLhncHwd2xaXTuc dmUgYmVlbiByZXZpZXdlZC Uai0EmMCubPLN9GPlwhqUq bmNsdWRpbmcgSCZFLCBTcG PrvKVfCFW1JHpbxrOfkbSt LJ0tnD1mnCogcH4ttBPcdM D6ulecMLFrSRRuxNuyOJAv QK7stNbjpN5pKkJtDqPeBU nwPB0fNITmW1exkPFiIXUw VSMbR9dpDlTclJ3muLiiCK xjZjJcZnMyMFxwYXJccGFy XHBsYWluXGYxXGZzMjBcbG FuZzEwMzNcaGljaFxmMVxk ZqNdYHVaTRbrK6uiEhKxW2 EzKEIrFyRalUKuW6jhRGpg CSY8CTPiJT3dqFYeZQ29mI Itf9lhQMeyrNohox3wZ64p qTJeJSfqbSqcMJJgl87lf2 PlEKXwktXckp3nGKOejuG7 gE9dUSDsrNhaTAXxvQWlZA Pea2PxCYjerGJmwpRnIMin LPTbEYEwsCRdrbD3dwFrwx BunxPmPUZibDrnQZTed4Uf QIEhWCbkf5Xeyc2myTDaGV BuoiSBfCwupCUvxK0zU3Bt RPJpAGHbxi5eJJZrtU8pJS oac9GoxrvwFOQbDTQwXPUd krCbcp1oJUTnlXYAXF2XOW zvbOOyb9TyrcEhF7yQEAG7 NUQwNjYwMjgxKSBleGNlcH TiKQCbxo29YSEhdJ4uoJuk ELSkuV0ipI6orNytwB6nTq FpUgIhPWdpFB6zWGWxH1jl hGVuZBJaTOAaN5ysKeYkxD 9jaFxmMVxjZjJcZnMyMFxw YXJ9fQ== Embedded Images (test code = [id number]) [facility] [id number] 19:23:05* Test Item Value Reference Range Interpretation Comme nts Case Report (test code = [id number]) Surgical Pathology ?Case: [id number] ? Authorizing Provider: ?Dominic Keita MD ? [...] HPylori ? Final Diagnosis (test code = [id number]) [id number] FuZzEwMzNcZnRuYmpcdWMx FDflubFkRDyfzQgjSPG5BG FrGW3acEuvmSp0eRivAAVd fnU5yGSzUUaas0maJMR3l8 cgcettWMRtOVjyOs8zyCVq vGyrVvNzSAWgSFv4vX23SY GvsX6isMEwKOt6AQTcaZEw wsWtIlKbKVTtpRWzrZL4ZO KzPE7fakuiEBpnCOufDRIe zdP5QOYnmIBtZ2RlPMQnSP 9wjdzxQXZ6BCrcYJKlMYO4 XxYhHRRam4Brjuc7RpSseS FyZFxwbGFpblxmczIwXHBh caLVHcIEIA9DDNNQSKVRJ4 yZAHXLEB1KOOTSKssmuQWv MSBgXVDlQRMHBH6ZPARgK4 tXIwFjAJ0ATPPxFWJxrZSm IYHmnrWRCsVJGM0UIB1TNL wgQklPUFNZOlxwYXIgICAg DJZcVUeVK9NQKKXwBQTAT1 OCHGjLQWnbYk0oLUNHNX6P X6bIF2URJWCIOU2DPQusHR RtNNIeDTZpWK9EFXuqNRJH ZX7EMQFDJJHSEFrRRGYCXI JHDRnDYXNDY9LQJFvPLFXi fnzcAKOjNa8rL3RLZAMMYC wgQklPUFNZOlxwYXIgICAg UPKdPDHGX9QVFySCKC0TW4 1AFLOXVLOFHW1UFWDPFQwQ JR9RXEOIBGCGUVKPK7QsgP FyICAgICAgLSBOTyBFVklE QX1LBVLMWdCOJGbWZYGyEJ lTRUFTRVxwYXIgICAgICAt LZ5MNMffYLCTGO3GUNQYKm dBTklTTVMgSURFTlRJRklF DXLUUBQDYJ1CWo4PUZXTOz xwYXJccGFyfXtccnRmMVxz e2XmJ6EmGwCgAQjnxoLsBR ErFjicfnvlLKSdHZC7eeVh NMVzITvvGMVsPGlaQg2pbK TahHksDdOtCTPxz8waecBD XHxsDwSbO187TERaREfhv3 jbk9PbZHLqwKVqu2N1CHXT xvduhTc1d0qeKeLhDfI5yQ NrEBvtW2mntuVwzREdC8Nz rXXfoBq7eOfoK48rb9F4Xp seO7upSBBmUSIvA2XfRJ7u EYWaAfm7TFB6REK0FWWcKU PaC7ApCZ2lHKPvlEBxMGu6 o6pjwJsuRGRdQBQ7z3qiEU fymvC0BP5spi0qmQy0c2tp czEgRGVmYXVsdCBQYXJhZ3 ExaTixBj0hdJo3yMdwHjzn ONX6Gmy7WM2xra63osp3eT kqUCKtclmvDoL9ATvdTTYm qaybRWx0FPluFOLriEW6TH EetASaV9TgBQCtXN8trua5 RFE9ECxnJJDePoU3DZHarY KsUTCcmZzeOVmmk904DJK2 FgYrWS8nI1Tfw8W6rY4aeI TqWADyqQTdSkNqLFDkbh2u kMRyATdws5OlOGV3erT3jE UldZLvQUWsDN31Asehb9Au EhfmNJN2WMPkrwDfy1Qgi9 cuYeQlovTbR2bxJ7KbGQEo ACHkOKKlDdCnnbWzl6Tld3 VilWAesYj1e1whOYZyEJAi bJbzr0yrBSY3ZOEdL2Q1pH Dmo6vbHDogBQWelVB3mhG9 KPZvjJZqM0OheG0bNGCaTF 7gqug9j2hwJPU6VGqlTZGv PhR5zbO6ODBwiJLdWNUzhU bpKBcqj534ROC4ZmTsBRPm m3VuF9NrvWjjN63nmJxrV2 7qVOGekEyajF5nsRifiT5c ZjBcZnMyNFxxbFxwbGFpbl xmMVxmczIwXGxhbmcxMDMz DElnL8rmTdVjENChyGenCK mpv2AdOFRaBHZaOqnnaoOr XHBhciBJIGhhdmUgcGVyc2 9uYWxseSByZXZpZXdlZCBh rNfbz5VyK5ioDU3aC6VhpJ YrxbVmelBfDAkfGBIow1c5 rOVvkCoyz7UeaKTkBP39df SmSMXyGKC4MYPwy2usNP89 yfnpMhGtfK78msAizsHzDZ Yij7lgC7khrUGtt8Gos9Hg lqLwWTdrb2NbXO0qdRJmuj flqKF6UVCvySBawnTotcL3 cYowMDZxbK7dwD9hkKfgoA 5iJxYyYeVoMYbkWS8tQBZt E1mdnDNaXAOdHSKzM9dgKh TanO5udYqgLiomkoV9INRz cn19 Clinical Information (test code = [id number]) Shivani Schuler is a 47 year old female with IDA1. Gastric polyp x 6 r/o adenoma2.Duodenal Bx, r/o Celiac disease 3. Gastric Bx r/o HPylori Gross Description (test code = [id number]) g1jxmHYlCCIauPSZCYD3IK BuAA5bbWifdQt8zEdlPAAi sbA0gPEyYUala8paBHG8h2 qxagUZVonjTUQhQQ0dRWgr SLZpPL4zSbMuIKRrItWdUU BhcGVydzEyMjQwXHBhcGVy cTH8KKRjDV7dyemrZYluHP cxONWbqfS6BFJraURrC5Jn DQOzVA1wgxzdPFK9RFWXKj zeVw2vqCHqoWttEeEwLiIl YXJzZXQwXGZuaWwgQXJpYW a4sU8FFprkPEH0DLOGXkrz ZeognCwks0SnbGRnYJMfER xcaWQgNTEwMDAgXFxkYiBP NiEsOaJ1Len6VEL7AeG0RD d5YWUPQQImSuygDVB3KaU3 TLb1TSAdQP3pOLnmxFTpPJ vpDrzvRGbzJ165KFleSOUo I7QiB8GsPVceTqWbMHzsUN JoVXXrHUgcEZMtZ3YQVVGk ONL1BgYsJCGsSMr4UUhdG6 YRZYTbGQAtQeA6OYOeYzU7 LXa5DMWIGl2zYUfsLzKoTR q5XWJ5QTe9VtNbEZHqKaJp QZDpGWDhNAqyfPPkLR5esF avQZJuRE2FSPLzYBaaRWWk HoZnD0OHJ2lWGG8xOTkeuM JjaFxmczIyXHBhciANClxw IGUqLB4ACDKtCRisIEo2se XrRTTqBxGlNHCsE55by0TY j7IgRX8XWVj5jhCdaclveG 4iNRCcozJdOCmWlVFjfK6b xiONKQdaFCPaM2PxsqWwUC dnBMHipe8wkCghFVafBkOl bGVkIHdpdGggdGhlIHBhdG ajvcVzZ2G8xjPsAV6qTXLM QMZzyD9qCQJpXDPns3OqsE SmpAyoZ3UlfSJnKiVar3n3 qDC1ZDVzxuYeNZWbnFDoCU Quti4sEUtbNyYtL7G6CNPw ZAPoa68fvFJ5chXzUpLpnZ z3gUGhSPF2NB3umPjtkkXx m9p7hK9yOMPkf2O5VCNqb4 U4SOSkwlLhxDTbnNIrNCGj NW3ehpCaAD22NUMqVCgvIC vgVLM2YOT8HHNpiWWgp5bw nmgeSh0zLDubOB0hEEvuUD 81OASkZYbdLXYbA3WcU7P4 JSdkIWDpHGClhJWopO2der AbkaTdzMb5TSHjAFW3aFQr qQmkQQUrEgwxqGA4HYJrJf HvikQod4PvcKg3rJUzIEmd DOGhnV0yvP6iVFQiRMCrer PYKnqhJYNaXZbuv4AwCKhh cGljWHNhMzAgDQpcZXBpY0 0fi2XAv0Lvm9ebyWflz4Ne iWLiNC3djQLnRT0Ct6yqYH IekCCeKYZ8DJolg7djWRag SIH3ASIqYjIyCFBbQW2VZb LjWYwpQJd5LWnjSBl4TEp1 ZI3EPlAaZXNkEag5GuU3Au SkBZf3EAneGQ9SWGD8LDPq FTGgLXbcXEF4YDGxICx2GW IgXFxzcyAzIFxcZmwgXFxu L03xoGUvLOqwVtMeWJhbdR iuYNDcXHN0NY5ECMQcEgLx Z3KRG0pGRR1pMnrufaXlTT RebuBUHgrcLPIcCX0PMGUe QUnaVMr6myJeAXZdNpRmZY GlW74ju5SJp0DjJD2ZGTm1 giVewavolR8gKCFdpdEsi0 IzMFxlcGljWHNiMzAgDQpT xVRexL9fbcAUKJlxSFJgW9 GweuNiVPpqNIXyru3neUlh IGxhYmVsbGVkIHdpdGggdG pyRBNviEpcblPcT6S7hjIz CO0pDNZWEBBlkF8bFLGgLD WnZYLkQPCvwH5kKMY5a9My owZzIBITQUQwdYkgNJ30jK BjZWxpYWMgZGlzZWFzZSBh puYzojQuc46amsGgh0JvBX 4glLhqCBxUQZjnBjZcMO9e GVTquqIan4VpYM0jUBSsrM SaOIDctflkpQZnQEg9qIJq NDPiQcCxxZzrf1BlFGBiHY etWJ29ulHsTB7gQUhfRP5e ANcbPP1sRILjDABcIZRxYx GyiFEhLkPuuEZhRoJcR83m JfNTgCWsh8MgX2yiVP6hbF TzMxfoiCZdICDaoNjcw5Jl fZOkOADsy6DfwKYoNCfpHC 4dGGY5Ph5wtGXpLXKlqaP5 v5FjRXsmVFKgRcvpCOQaUN dgx3RwMWHbzXTKs9KwAE9R XHBhciANClxzYTMwXGVwaW DJv6OyMDBRFzfgpXgcDkDk xJTtLhB5VVJrgLYrWDR6BP 9bkHtpTCLyGMf2FQpcTQNp H2QaR3IgSVleFbAnMTswDT NfUGBjYXfxYTLzZ0FEVYUp USC1XpCdQMGbLIg5KCyhG4 JAWYVkQYPoDgV5NUP2FaQ0 TFq2CZJJJk0aSSsoHxPbVT InMqK5NDa4AfOsHPHfCiQy XJNcGDAfRYdckKRuMP9sqY ihYLWfTDPbMLQ0NOZtdHOM s8LeHRBrFPjdWdNpAJERZK NOQA4VThQSBJJwGaEgrNTg LZ3ZMDYhelUlIMzxyOxrpT 5lmDJgS2acDcRxNuyubGin TmVzdERvYzEgDQpcbHRycG FyXGxpbjBccmluMFxzYjMw YVCqhBMPk9LeSMOKSiQtKY NpbWVuIEMgaXMgcmVjZWl2 GSJtaO9gVu4lqUSphW0rhY SwZHgsMARmc5d0mWS9oJFp bKK3pAVdmPynIzQiMW5kxJ CxIVMZNQ51cRZqrjSjMYZu zH4uGMHaCCIaKOA4ltjkEV JXRHF4eBWsk8R0FTehGHB8 bE2odHbwLvEtG6S7HLAbBZ Rwj46csVK8xwVqVoGjDMOm oj0wgY4tXNnwmnNfsXdbqj Mky4N5UHWrn7M2NLJubwWs sIQwoHFhEJUqCkO6PHUpVd C3FZKxOJOcmLOeRLAoOE8m VGhlIHNwZWNpbWVuIGlzIG BpaIYrxfNvAMWgej59E8ee JBSwaV2ir5jrBvHkUVRkUM LtoOHbkYO1TZZznM9xhK81 ftIpkxVTEK5izRLoHA3XJV NiMFxlcGljWHNiMCANClxw IKYnCQisw9OdCYkteMaoWP LhYtIzQIgGvLgfOVIFS6um lCXbMMpcWDHZXOeXS1UYCA 3SIPRscMSZJLZ8JR9bZOut WHDlE2QeL1LtpxW3j2ujnZ mub3ZdrYJkBV6qfQJuBG9W XHBhcmQgDQp9 Disclaimer (test code = [id number]) q5hsmPCcNKVks5hnPDXmlK FuZzEwMzNcZnRuYmpcdWMx CUakpaWvOAyud6DrB4MsEe AwMFxhbnNpXGRlZmxhbmcx XRQbMMP1ltKiEIAeUTelSE OzNXwnNp4ppHSlsUveDaRl EYNcb4yvetHFLUpwLaIuC7 78RLNnDBwnp5tru5LgZZIi sTDyv9E2GVCDzjkukLc2jO nyV42ce9Z7OsynN9mzZZFr YFTeI4RvME6dBSDxKpq2LX C0MSP4LLQiAHPhV6QfFN1k JNWgiQCpAYg0y0evpEsiQH ZwAJJ9x1pfEIcjrzHnXW9j zd8emMu2p0yuehUqHBKwVY NodEZUXOEcP5SpeGmtZt7m cSo6sSomOwdvPZM3Jse3YH 7fke37mbs3lZemNPRskzts QyL5NEwcKEWldkiwZYd5KL tgXFDzcST8OMFooYXzV8Cq UYAvDC4astn8BIB8XVwjNS KjLrY1XXYccQQbFDUlxLdy YKlri625CHF3TzTdJX5xU5 Vhv9S4mB7lkPApYWFudGSs NaGwIDHsba3cjGCkGHoak1 SlCXG0gcR9xPRjkSPqNWZz LH56Btqla8HlNfugu0LaG5 6giQT9RNlou1bnHI3zUoD5 ggFmYGfko0tqsQ1rTqQ2OS xqVZ9uTV3xUYNxxK9dsknw XHBnYnJkcmhlYWRccGdicm PsWp6inQdjJOX2KBdyP7xu hB3sPqJ9GIjaP8vfuZ6iYA v8UJbynEE4HMVdrW3dVV1f zwudx6amZZrwVHxiTSTqnz C9vhU1LLStzDIwT5PatM5w WNBlZO4rnqect7fxRLS0FO xmWBTtDVX6XsSpWCJln3Gk fbi8SjRpy3LkjNQeMByhK8 5ih290BTGcljOrK9nfdJPw hqczfZOyprnrVHasgeL9EG PziuQst1HtQBLwGHS0VNpi MCiwyMBuQWBeyWlau3poF9 RscGFyXHBsYWluXGYxXGZz MjBcbGFuZzEwMzNcaGljaF tpFBrbMzZqYEWySKrzJ6el JwNfU3YcRIVqNzRpoZZtN6 ggVGhpcyByZXBvcnQgbWF5 HVayQ9j7FDDiqaVsyLh3cq MsXaYuFRTzZEZ0XQvtlFRw JSVqm5WkwmktqQSkOv5bkY DzWKCqqH2qERQoGVIoREfs MO6tnGm6SSNOyLUrkKBfXa SQOHIyZP35hqUzIHAQmtxx j8Q1SEzzMYUpc0RukTUvV8 qjj3FmSFJts80wGE6ra5L6 q4qgXZG1HV3bz8GqNXYmrD JsbVDqWBLty1Ykzwrrh7Pe UGZvagFgo8XuTOHbptCqyB YdKFMwpmZstm4txhYoMMVs JSWxQ8OtgkokhKnlkaTvAT Kbdf3zhfMiBII8COZLBLSv LBYvf0DhaQ1eyFVURUZ0qI Fltf3xfhBOpBIaDIWbex82 KTWrLA5nY6deVHLzBWBcpw JgbMMvm5QaECFppEG5iJDm MB8KGtSOt77zHUTzMIUGkt LlWPByqCqcfOP6rnP5tY2d IChGREEpLlx+IFRoZSBGRE SbSP6wofLry0KldqAovYzw MUFnwXIez8EodOCce7OzmJ mmr7YfjNVhgOBjHI2yQSJc clxwYXIgVVRNQiBMYWJvcm H5x6GoWRWlYWHaUIU9iKbe bzl1YTDwnK6mQVGpO2rkjt ymZWkdQASrb9FhgG6sdCLY oDGmq2VvwMUtqMCDdFAyXI 5kigBaNLhCFAhPWFH6agAh RXZtp4GiKPqyP5dkW20vpH sxdZr1eVZ4TJS9iH9kYqr+ IFxwYXJccGFyIEFwcHJvcH HlDFLrhYwyooTpS7CemkFp dE3wpABermFdBR6uOT6jM6 X9jHXzWRNosaKgq8xnLIvd dmUgYmVlbiByZXZpZXdlZC Ori6IhTOzcPUO1JJnlmmMx bmNsdWRpbmcgSCZFLCBTcG ImiBKtOKF4EAutkcBcbmOb KW7dkK2jsVncvR7efQQdfV G0shfdZEZeCQUsoOdxKSSx CK7nnAqrqL1bPjFfUbKxLC naST8bMCLtB4ttrEMxULMh WRHjZ3uoEhWdhD3kfZgcUJ xjZjJcZnMyMFxwYXJccGFy XHBsYWluXGYxXGZzMjBcbG FuZzEwMzNcaGljaFxmMVxk VwBsQLOsCZzxL0uhThLuE6 XhGXRtFgImzMTsS5prVCsa SBP7NFDlID0aqBGyBY32xO Znf4dfCEsxwXwtww0mZ66o uOIwTDsxcHduPAGit64hc9 HdRKQwazLvgn3rXRCwdiW9 gL2vRQNnzYopLPUrhKRlHD Zwd7HvMFcvvPWnltCaDJkg XEEtMIXalIZnqlI9ejLwjb VacdNmNGCcrMidAVVfb4Hb MDKwDGsuq7Qobv9lmUNdLH ApekZCbQugcCPslY2uB2Vf MMObDPFxax1mSUFmvK2nEX olq5WyidymDZPiOZWjCKAe ijZawy9qJBMusIPOJH7KIM fxvUYdf3TmnaXfD3eCNDD2 NUQwNjYwMjgxKSBleGNlcH DzPSIlhk24YPGweY2tdOsa RKZpqQ6uaI8idNgvkJ6aWm ImAbXjBRzwAE8bXIKwJ1sa cGXtKGSwBQHgH1gyKsDrjT 9jaFxmMVxjZjJcZnMyMFxw YXJ9fQ== Embedded Images (test code = [id number]) [facility] [id number] 19:23:05* Test Item Value Reference Range Interpretation Comme nts Case Report (test code = [id number]) Surgical Pathology ?Case: [id number] ? Authorizing Provider: ?Dominic Keita MD ? [...] HPylori ? Final Diagnosis (test code = [id number]) v2ovjLBfFBWos7enMKWqbZ FuZzEwMzNcZnRuYmpcdWMx YXigqlCgSDljnNqsFVT0KG SaRO8ubBdghWd8hWftLGYb rdS8zPBqEGxiy3yxOSV2v7 gwxxioCDBdYXazDv7bkWTt aPpwOdWlEVOlTUm2iF62QY BumR1vtEDcYKo5YREewHTk lsTfNsZnGMFpxQNqbIN0LX KfZO8mtecyNMpqAAmzEYVu kxT6XVVmnITaO0CkOGHzBE 1ijxggWCA4FCfmORJgLIN6 WnUqZQMde4Pzwdj1SbEbjZ FyZFxwbGFpblxmczIwXHBh tmAGDcJBIR9RWUJUIGYEH2 yLBRVQFC4HFEBFIgoxsAFd XVGlSSSeETHNND9ESSAlC8 sFDbUmHE2IXAYzOKWruZWx KOSioiGTQrNKAT2LCV0LCM wgQklPUFNZOlxwYXIgICAg ELDoGLgWC1PCPWExKOTLV3 ZMJOxLTHasPw5pFHGIFQ1E Z4kZI3NYHUYMQH2ZACsoYF WeCMSuFPRdLK7WEEihZMHB WO7DQEVCGRVIPEfUNYKWXB JHKPaRWWRWV7NMKLzEFMWh ebciAHAiMo9jG1IYNZYXUJ wgQklPUFNZOlxwYXIgICAg HJDzJMIBZ3MIIqVPKT2DY2 8NEIEMNCVYDA2SWIUIGHmH TL5NYPTVTYYFKKIBH3EcbL FyICAgICAgLSBOTyBFVklE PO3XYJPCXmDZUVxBMWMpHW lTRUFTRVxwYXIgICAgICAt UG3MXJhqUXDJWK1MPDAZKa dBTklTTVMgSURFTlRJRklF DFFUOJESIH8OVb9UEXKFUa xwYXJccGFyfXtccnRmMVxz w6DlP2MvInJxLWmzhpWeDA SlGrugxfstOXCrLKQ6tqMm ECFtIRcvNPZiMFteBn5vqX KeoCoeBmCpGTIfz1kmheGO XVnmWjEsZ586GOJfUUyxz3 brs3CnGQCgnNIni1G0ATVC umfgiAx2m7ztUiFtKpP1hC SfITwtL8burfOvtGLdS0Qp tAArtWp2eErrJ93oi9L3Vm ofW2veIIGuDPTkD6ZfWG2p VWYmOqe9CWB9CEL3ERIjTX NmJ7KpPE9gZLVkxRXyQTy0 l8pgoVnjPCTtAAR6o4pyYK moevQ4CR6uli9zqKw7j8lx czEgRGVmYXVsdCBQYXJhZ3 VbpHelQt0ojWk2lBnsLbqy OCJ3Sgd7BJ2aun70too1nW frAVNrhskoMeU2CLvnHABu gmfpYLg0PKstRBTjqUY6GM YmuWCfA0AcKHMvTM2ejjd9 VZF0MGzkMWSwWmF5TALjtT KjRIJgoKubPQftp150ZQZ9 CsEnFY9qB3Xur5C7wK8vsC DpIWFacCRhVfYmNIYssg9r vDKmESqnq9GsQNB9lnN7iO SwxFLvOFLqYR41Ixdwu8Ol RtrkUKZ8PVTziqBrw6Vwc6 hdCvZhcpBmX5hwP8JiNYCp TQNkUEGgUoPpvmOlb9Qgd7 RkdNZpsSb5z8btNLKlHMTf jUxdt3tqQJX5LHUrH0D6cD Yhd3sxWGbbCXSevZC3moD4 ZXXriXVyZ0YwsF1mPEYuKU 9uabu4v9bnLWY0WXahREYg IpE1udA0WHObaHAjPBHowX bpOEwqv487WWP0VqXrBOFd e1PuH3OwpGjjF58qmMlvK0 8xIYKjgDvogI4ruXghyZ9j ZjBcZnMyNFxxbFxwbGFpbl xmMVxmczIwXGxhbmcxMDMz HUksP1kkIiOfAQFhhVknQZ met8SsETNaQQVlJezncnIu XHBhciBJIGhhdmUgcGVyc2 9uYWxseSByZXZpZXdlZCBh jBsne4AzC7phYK3mY8YysG HwshFxhhEfXVnmUQTbp3b5 lHSohQctj3JghYYiJX15ji LiIMJzKOK5JZPqa4leWX92 egztEhSsdR53xpZctmGeVV Fcs9qqC9emhLJdg6Mjr0Cb dhKlRGaig4DtOO6ypKFhdg xisHR9CXXhiQVekiWeuxG2 aOcdDKOlzM8ocL1qgCiedP 7cGgOlRhBwLXiqEE3iSCBd V1kcpEImOCBlTRRqC0jsId TzlA4ljXavPevmlmJ7LJXp cn19 Clinical Information (test code = [id number]) Shivani Schuler is a 47 year old female with IDA1. Gastric polyp x 6 r/o adenoma2.Duodenal Bx, r/o Celiac disease 3. Gastric Bx r/o HPylori Gross Description (test code = [id number]) v5bjyUPcEEToyRMLFQM7LE JcHV5mjOmlcAw7fKbmIFJd qkG2jXZfHDxdn3kpHEM3m6 wmcdFGErfdMRKfSB2uHScn BXAwJG6hXoDjUUKzUpSsBZ BhcGVydzEyMjQwXHBhcGVy nQB5DVQgGL4zvaqcYSagDQ qaRODdyaH3QCIjqXNpI1Se XPXqOD2wuwueFDV1AAHSQa wwFp6tgOKkhQizIgAcTnDn YXJzZXQwXGZuaWwgQXJpYW k4bC6IWwnkMZR5ULYEFtch OninzNqhb3JgmKUqJTYuMP xcaWQgNTEwMDAgXFxkYiBP NsPlUoG8Kkg1MSW8TeM4ME c3RCEWUFNdForjAXY7LqL0 AIs2JIArBZ3dNNjtsRLuQN nrPjvmWPlnT961ZViuMKZv S4ImM7BwXAarIyCgVLjvRX XwUATyKSjoWPMxY7CUJPJj HPW5PyFmRFYuQUn0CVwiZ1 KOYNGcLLFjMoN0YFQdTsA7 XHk6MZLWZc6eROemJmSkTS e9FAJ7KAu3FlDiSGKgHyXm KQDaMTGfXSfyaVCmVD5rxG vpGWDbAF7BWZVgGNsrXDXq OcJyD5KZZ5aRLJ0rBDiwfW JjaFxmczIyXHBhciANClxw PPNbGQ8YRNWbAKqeDEk1mb MzVUJnHvYyMWSrJ62vb4QU q1EnWS0EONv8sgJulfyhnK 5lMDStyoBtODbEzMOzmU0l beBQQXynYKYxT2FjduYvVI hgNIBehp9uoCxhLZucZtAu bGVkIHdpdGggdGhlIHBhdG htylLbK7T5itPjSW4vNZOW GJYcaG6bHWWpHRIhq2NcvK HojFxeG7PcoUXwKwPxd8f9 gBY1EDXyyoLrHNIglDZmVA Oarq0eYOadAnWmI9X7NXYy DWMyq03qoBV7jrYcFvNtwM n4eGEgOKD7NC4hxQrtcmId m9g4dG0jPILqx2P2MCQqo8 P9NAEpksLwwEDzsFXeRWAl TF8skwOaWF24WCHcRXopMP lgUHO0ATD9EWEjqSYif3zm obylQi7wBDvkKL0nBNuuBO 91TRVhBRhlLYWvG2ItL3B0 EQipJLQiFKXdtTHjcM8ilm RoolOupXt8OJVgWCT5bHWh mTwsJWXrSwiuqHG4HHAcMp IokaVqn7SkeAm7eZUoDYkp SCQyhP9yqD7sVHUpGKJkdf DADgffLWYuNLwqr2FzQGsk cGljWHNhMzAgDQpcZXBpY0 8nf7FGd4Ofz2mupCcaf1Sq zLHpOK0zoWBfUO2Jv0hzBX ZswGNyHJF9LVcev6meIGmg SNS7SQNhQyLpHPObOC2FXt WpUOlrYHv0FPifGWe8NOj5 LG2OMvZfEHOeJwi8ZbT8El BlNVv9ISzzBM0GAJN1UNIm XUAjCLrsIZS8SYLcDZz7KP IgXFxzcyAzIFxcZmwgXFxu Q03kgXQwZRcoAzUlWZeuqB ckVLUrLAA2BT9SDWQcNnPv M5KAB6iPXS3mJjjhuqKrYX KdglQFOnvuOHOzLT9ECLJu UHjmJOn5dpJvEQVkQyBpJD ElV25ff7CDc8CrGV6QOWw1 abWfntsjyE8cBAOvzjCgg7 IzMFxlcGljWHNiMzAgDQpT oXJmoJ0jhpYDYSghNUWqO9 RmwbByIGavMDKing9yhAes IGxhYmVsbGVkIHdpdGggdG afIUMloKaaypJdM0Z2iaIs KE5yEXJKISNqaX4qIOCaJQ UxLTUhQOGicP9eNYP1v6Sf xbYaWANRXEQogAorFL84xL BjZWxpYWMgZGlzZWFzZSBh rmGaotNpl64dscGqu8WcSG 7kgBikCFsBFNccFvNxHN5p DFIujwFpa9AgID2nRPUuxQ AoNCFawohmqWWjFJc4kALu HLCtHtWfjTxmz0CgGJXpWB ilRD48grHaHT1yATmtXR1v EXyqXR3cMDMyAXTyYTSgOb EiyJYoHlRihIZwRlTaD18q QcAYtODgx9MlQ6ojDU9qnO HmXfvnnEFzMUVhfZdzj3Su kWXtKVIrj7FtuUIjSHdbAG 6yJQQ0Gj8psNRrPKStwyT2 z5TeYDeeKXOmPbniJZIyMH eye5SwITPsnEHHl3OjMV3O XHBhciANClxzYTMwXGVwaW AKv4EcEITMMpbidGfdAvDp mAIdLjG7LJVmvGMnSHX5WP 4khSusEZUdLEh3ACbyOEJs Y2FjL1DhHIkqHwCbYEohVH VfHHAaQRodOMQkS2RKBYYy RLR6JqIxVLKhCHy8GFxeV2 LQLFEnZIOqKsQ2UUZ6QcR3 XXo1VOHUFk8hAAvpJjMmRG QpZxZ1UKz8FhUcEZKaRjKz HPRbTVYcOSgctCAyKJ6kiU mhRALbQIOjQIZ7WBYfkJDL t9RrOXUnWQmqUhVdFTQPHG FPUL5HPqJMBXVhGrMdpQZc JI6BLWCqqcAeLQzucRxbsQ 9gnHPvF4mrMgZkBwfuoPva TmVzdERvYzEgDQpcbHRycG FyXGxpbjBccmluMFxzYjMw CAYkdBESl2ZnWEIVTxFjNS NpbWVuIEMgaXMgcmVjZWl2 JFYezY3kPu8psBKljE7owC EeHBvkQURbg0u2gXP4uWMo iQV2jNCurHjcFvPwVZ4juM AcKLQPOC18iTFkoiDtLIDe kG4rUUEgDMZhLBL0iuciBC WRKKH3zBFye6O6XMmiLRJ0 mU9llGolFhFlA7R6EQLtKB Zat72vcXE4kdJgFmCxCNOi vw0yrU2cAEbrlpIpbKivtn Dsb6G6UPLzd9W7PUZwnsYk tYXvaNFeLVJsHrM4YWIrDb W9WLEtAYAlbITdFJRoOD5w VGhlIHNwZWNpbWVuIGlzIG KsbLVgytQkDCTuqw31H0ti ESMmdW0mo6zwIrCyFZTjCH VysTCpwZU7VQDxjT9vxI17 rnJaksBNEK4uxBNzUR7KPV NiMFxlcGljWHNiMCANClxw VJWoUOdya4QhKMppaOvtLD AoDlMrAXpNhMuuYQGOX2wf uVWhPFghQOZUDVpTD7HGYD 1MKDJtfMEANKZ5VI1gCLqb VYVlB2ZhV2ZvcqC4l0rqvI pbh1FlsUSnJL0xqEKeFL4L XHBhcmQgDQp9 Disclaimer (test code = [id number]) j2luvMXaIMMyo0leEYDyoJ FuZzEwMzNcZnRuYmpcdWMx NPxdfqEoEIcby8VaP7TbLk AwMFxhbnNpXGRlZmxhbmcx MAFtHUC9hcTwDTBnOPuzQO MmWSqfOd6tgFPyyHxeJyHw IPStn5eckfQPNBwhXqTnD4 86ZSLzGEvxm5bed0VpJUUf fNZth3A2ESZXyvysdRn2aF nxO56jv0S1KmgxB6olXYZf ENEiE6XxIN0tJNLwXry3HP E0CYO5KJLbMECiC8OvFO2o ZOIvjXTkGRs0g8xcpNvpUI AoJVV7e3haKJrxpbRpIJ4u ev6jyAh2t7mfreQzVHKqFG FoeHSYGSLxL7NsuZtiCd6n vUc5hWtwZrqiMUH8Jnz4EZ 4aqf08xoj9vBomYPBvbycn FwH4PXudFHCmkdkxAXn9YZ uaPUCmxBE9APCpgRAvX4Lp BMQhKG7fyyf0PUQ8ONkuKT RlFzM7BLXsaPPwHQUbfQck EBjnr001XPK0FbYbGF7nZ4 Xzd3R0sL9dmUOtVEIarTKk DuIhESMeal9cvNGjEDzxi6 ZrGWO5xzW1ePHgtRAxJAEd EF15Snkcq7SlGzskh8PyQ5 3stBR2DLgte1raGI3wOjH7 iqAaDFiai1hdnU2mPdP3EZ yvWQ5fVO3dZUWxuH3wsaoq XHBnYnJkcmhlYWRccGdicm GdLf7ylOntBJC9TRxaI5iq sH7vGjN9QAjsT1epsI6cAM v7WNkweEX6EJWprO2wYU4i hvqfs2svPRaeKMwjUMUzjb O0thQ4ZAKotSNsQ9YkaR3x YCCnKO9psukrx2zaMXU4NC uqBJCjJBF9CmBaRTMlt1Lx vnr3TfFcz5CxeZDhYZdcI0 1xh260JCWxjwRgL9urvIJk wkdbnJRdfmftBRzrgnH0TX VmkhWiw8XqGQVcTTG1KAdf IUzauSDtFVFksOyqz7zqD6 RscGFyXHBsYWluXGYxXGZz MjBcbGFuZzEwMzNcaGljaF baXFmvCrGlLSViNGtyW4hf BpPbN5IeLCXwRqOlzYTbD9 ggVGhpcyByZXBvcnQgbWF5 SAotT9r5MRDrotDwnAs3ym SnHjSuMGRtYPM1NMdwaNLb FYZfe4VvzmlttEWsCa8fjB AdFUAxaI4uPMPaMZIxPFci FY6wzAl3GQPIoIMaoYUuTl GSNOIpYZ63kvCyIOGIwvpi u9C5HSpgSTRln7TbmKIeK6 ypt1FsVZSia07lWE0gv0D6 b7zvYIY1PC5pb9DxQCEjvB CpnTArBDNpp1Xogqzff4Lo LWYrcsXmd0IbVNEarwViwP LiKHJnyyKqtf7zhlIrSKOr XDYjK2ZofksqnLroorDfZI Nhze2oakLkVDU6MKHLFUZq VZRyj5OloB8kiGXCNRZ5bI Enge9zwmEWhUBqFLYgca47 JJYbIC1jQ5pfTTBoNMFjvz FqpOUxa5YhIBHhhGT7rUMw YD9WLcPNj75qIDOjCJACav VaZBDaiQsvwJR4jeW0lI1u IChGREEpLlx+IFRoZSBGRE VbEJ0zwgHqs0ZualZlnGzm ZZRooSEle8KisXRtu0JtlG bve0RpwKMmzUJhDK6dVSBi clxwYXIgVVRNQiBMYWJvcm U4q5SnXGNtCEUgUHJ0dLni knn6WGEedB8vKIMkR1lebx koFBmvZVMgg5YkeO3uvZDO bDUsb6QntDExvUNFcJEpMF 1xhbCbXQpCRSqQHGE0qcFn UVJem9RaNRdmE6ykW16ypH eddVu3tUV9VKJ1iA0wXez+ IFxwYXJccGFyIEFwcHJvcH GtWEWbzVnaymSmM6ImabRb rO9jzVRlpdReHG0eBX0eQ9 G2sOYlXXFunbPsi2krHQal dmUgYmVlbiByZXZpZXdlZC Fqa7OqCKniGUA5KJiabhGa bmNsdWRpbmcgSCZFLCBTcG GhcNZvLAS3UNyvuvWqykLe HL6xiO7ftRfzyW8rjYLsvG O0zbenBDRzVFGjgKvmKCGt WU0lxRnbsW4gPqMeWjOeOA kiIM8tFCGnX6uoxRKgHYPb CLNmT2biUbPapV4odWcbEM xjZjJcZnMyMFxwYXJccGFy XHBsYWluXGYxXGZzMjBcbG FuZzEwMzNcaGljaFxmMVxk WcIwREGhFMymN4rxLkGnD1 LtLKKcRlKigJAsC4lcFVfi HZR3WIZnKK7dbKWlWD94fE Dwt7heZXcmzJicdg7iB11o eSRcLHeanTbuCPJya79dy3 YoASEfmuDlfy7bZJYrihO7 oP1hIJVnbIlfFAKdwLEyAX Qpe0EaSRdugHLdxaBoLCin IKSxFNCmrMAwqnA3dfLtpz ZyojOwCSXfnReaCMTdu8Is MQGcWXlhs6Lpiy5eyLHbUX HqfbVBaQflnGGwqQ4xJ0Xg KSVtIEYahh2hJZBbjX9tDG vbu7KybajdYSQtCVGuRSZr wcLnkt8iRLTxdEYUQU0BDO trsTFrd2VcxmQbQ7vFSLX0 NUQwNjYwMjgxKSBleGNlcH RnCOMeog67CZWxtM3wzXnv CQKwrI6xgG6jrEpnrB1yHl RdHxIaBVerKI2pHIHpL3vc yFAyAULmPKBsQ4lpQrIqbI 9jaFxmMVxjZjJcZnMyMFxw YXJ9fQ== Embedded Images (test code = [id number]) [facility] [id number] 19:23:05* Test Item Value Reference Range Interpretation Comme nts Case Report (test code = [id number]) Surgical Pathology ?Case: [id number] ? Authorizing Provider: ?Dominic Keita MD ? [...] HPylori ? Final Diagnosis (test code = [id number]) o2jrdHMvIGVkr5moJMMbyL FuZzEwMzNcZnRuYmpcdWMx ELnxomEoJUrdbKoqOOR5TR NtSV1fnJmucWc9oQnyCSGi bhM8uXKlIGpdk3nuJGN2l7 icyxmkRVRzLIftSj0mfAFe bHkhThGqJJIeANb6iL88KZ VqdM2sxZRgGBc7ADOpmICa vfCvEnGwPISdoKWzvFZ3GG TcRK7dbtgpYPxbXAjdOHPt hoH4XFBmdKRiB5OqCUOaST 1qpvgcONY1LGioBDBdKLA7 WtFyEPHeh3Ochlh2GwLkyE FyZFxwbGFpblxmczIwXHBh wrNUFoQIYK2PSUEPDVSSX3 iDSGMOBT8RLNUFWuqkeGCo FXLtZRMjASABUO2LGHSwM4 oQVyMfWJ5RYWUlEDCwfOEu PCWtggOCCpBDYS9ZKW6JQY wgQklPUFNZOlxwYXIgICAg XDTrYUbIE4KPPMGjXFLIN9 VEEPmHJIkoHq0eITRXFF3M C5hAR3JQZJZAZL6AKLtrYO XqFXLkSRTeWB5QZUagDQYJ EC0MNPZTFXTZZCkVQUPVXN XPWRdBSQHKZ6CBCZpCXSAd ruykXLJiTl4vL7REHCYFGH wgQklPUFNZOlxwYXIgICAg OSSqSNLKG8XYYuLKHL2FB3 0AVEGYRETFRZ3YOEMJXIcG ET9VONLTAMPLPBELB3YwtY FyICAgICAgLSBOTyBFVklE CB6ZBOWXZfHAOBtAGXYqWH lTRUFTRVxwYXIgICAgICAt GV9OZFpbKPAVCA8JDQCGCn dBTklTTVMgSURFTlRJRklF SDUJNOZIUR2XAx0EBPBLLj xwYXJccGFyfXtccnRmMVxz j4ZkP5PgFsVhBJmofiGoMH QxKoqnevryRHOdSLI4iyHe QNVlQZebYGGoWEiwUz0oeF PvqDzsFhHcTSRim8eyybHA KSnzRzNkH594WJVnNXfme1 hhn8UwGAPhzTMue9H7KOVW ytybwYf5h8kqAcAjLfO7xE RwYFjeP6mwvhUygXRjG8Mp oZQibHi6hYmiU75ba1D6Ib kvE8alXFWpIYQpQ7UtLY8l LXHnIby0PVP0BIS6ZAFxWU ApR8AvMC6rOQGgcPFwVYb7 u9wslEyiDOCdBQR3n3mtNK alztY8WZ9jne7kuMs4i0hx czEgRGVmYXVsdCBQYXJhZ3 BlmCmsCm3ssSt8sXroPpol BVN3Jih9XY8zhk32qsl0xI isEOXblrptZzV7VWgiPKGy rzzqDYw9JGgfBJFfzPN8HJ ZoaDLxL5JlLRHaRA6bftq7 WXM8QEkdAPFdAmE5BCNjwO DtXWKvqBocCCyhf145PBE8 KzVzCW6sO5Tbk4J6eW0awG EmPKCgrNBsKiXlIYAjbz9b rUGtDKyau9XnYRD4psC6lN TegINdDIDrLJ37Omesf3Hz TefpTSX6LNToldJaj5Vxw4 tsDxZuveDbK1vkO2YvRIHl MPOxSTReJfBiuyDju1Gjr6 UfbVFkdEd4d7kyBQHgCDVb jArox9mpBJC6TPEzJ7X9aZ Bek6lvCRpjCOTuyUZ2lnX3 ODJjeQZxZ4QclS4wAAGqUW 6gdmn5x9bwCMB2VQorTDLe BrA5ncF5DASsvLEwIGWkvE rqUPwgy504LVY8RpRpEKWi i8PxX8MjrGmaP42mqDesC3 9qODBqjHpyrI1ldDsirK3d ZjBcZnMyNFxxbFxwbGFpbl xmMVxmczIwXGxhbmcxMDMz MKfgX2tlTmSoUDEsjLhdJH tnv9GgBQEvJBWeRiwwjfUp XHBhciBJIGhhdmUgcGVyc2 9uYWxseSByZXZpZXdlZCBh wWhim8PbJ2naEI7kE5XbrY BjjdQmruZmSJctPJWxu4r7 sQDwrRzmu5JipYJjVJ12km LkMROgQTZ6EYMmp4utKP19 sumcXxZisY62crHqppTdYC Lmo5poW8fjcQZjw8Aac7Ct ndHsNKjhv4JzZE7zuUAfnq nbkJU5ELOghNEsijCdqyC4 mLleQMPvqH3fzF8otAbntA 0qWkKpVhYaYUijNW4lDCGa K9vvzOYkJKBeQLPxI8kwFz KucR2tpPtcSicquuZ8KPVd cn19 Clinical Information (test code = [id number]) Shivani Schuler is a 47 year old female with IDA1. Gastric polyp x 6 r/o adenoma2.Duodenal Bx, r/o Celiac disease 3. Gastric Bx r/o HPylori Gross Description (test code = [id number]) f5kekBPcTRBzqSNUZJJ7AA MaJW9acDbisBr7lNhhQHRg awR2oVOdVPmav9vnULD3t4 pwsxHQZunmGZQpNB3uBIen DPDiCE9lKdPxOHGcEfJtER BhcGVydzEyMjQwXHBhcGVy sOH7XXVzMJ6nwvifAJciOO iyIECkjhG6SAHyiQIaL3Bp JFUpOO8fmepyYFG3TBWLWk vyGt4imTJzrWugOuVcDzQg YXJzZXQwXGZuaWwgQXJpYW g2sW2WTfkxCSS3PCCVNtqm GdoyiSebz2LqjFYeNFAoAT xcaWQgNTEwMDAgXFxkYiBP OnEiLmJ9Pzq7QTU2XjR6AT l6UOYXPQAtPcabWPZ2SiU3 FPi0JPKzQZ3zUOxlqFFoRK gxBgluZIknL815NIrsCLOx D8PxL6WvENcfLkIxDJubQB JmBSQfQBjmWYMbU8BNLVTb JZZ7PxHhWLXdUAd7NXyfR3 HQOQZzIHXzXfG5ZZFlYbR8 TOf8NTOPKa4kUJhvAjQrDQ n4DII5PKq3TbPbEXYlQzCx NYAtFFFuFXjjvHKfSF6dyZ weMAWyIB1NWSYpFLdnTJOf BhEmQ8YXG8vTEH8eCLevhA JjaFxmczIyXHBhciANClxw AWEaQX0WLJSuMCelJOo5pm QoVYWaPzUqTGBmA23dm8QD c6ThHN6OKFx6bsZwjrpoyH 0bEPCrhsDnHKyEsITscG5q caRPYZjcORReI9LsyjXuAH iuIVFtrj6tkVfsQPvyPqMs bGVkIHdpdGggdGhlIHBhdG iowbYuZ9B8svJlDM1rIHTN NLHrnG3gYAMiQAUwa1GhhP BmsTvwK7MweWWdZdFeq3o7 cKF9AVWkfqLjKYQxuEGoYS Dqwh2zLUswLpNdA6I7QUJo OSKfk68ulOM1ouAbPzNlaB i8wQZdJTC5BB6pcRgexwTw q4o7xO6eQQHiy6V3GUIlr4 X9VXKjutIrcMTcqXYoSBNz JV7xekSaYT49XOEhOKrmEC avZNC0OAS3UTMwcREqe8xp ixyrPe4oNSjnSI1wOFgqYH 44POIfHYjlRSPpH3JzN1I0 ODamKYOjSTLfsINzrX5skl XsocBzeOn6DIHtKHI4vWGw iFiuEATqWfdumPH6YPYpCt XrvqPzv7LzuFx8sMWdZOso FDIpiF5xgC6dNIYhIADcns WRMaahQMJsHFajy7UhCDsl cGljWHNhMzAgDQpcZXBpY0 0rn9WPt5Fnm8bqlTijj9Iy lPGgNS8dqYLgKY0Hv2klUJ BblEVhNVO6OLqce0dgUJuh URB3HBNyZgLrDFZxOT0AOq MxIXnrCOe2QKkzBRi9QMi2 ZS8JTcYnEEAsMtd0PcI4Nj IaIOe4YXkdLI3VORO0KRQi MDEiWEnpPRO8YGPtMQg6WJ IgXFxzcyAzIFxcZmwgXFxu P76voQTyAJuuPxNkWYrjtE wbUPEdOEF0DL5DQBJmGyZn D2NQV5cLSI8nMslnzdLwIN UrdzPRSquyIFNeQZ7HVFSe OUelBVw2zwJlVIWvXeNfMC CtN03eq2NYd1BfHD7XXVp6 jcHyotesvE9pARUbppJmi9 IzMFxlcGljWHNiMzAgDQpT fBHbhG6lpxWMSHnjFRTnR1 QqtzQsCKfuWTFqfw3ohEwi IGxhYmVsbGVkIHdpdGggdG hfWERjpAxqdbSkP0R0mgZc PO5xVNMUJBZdlL4gBBObAU YgBGCiUAJshY9wGLT8m6Rf vbHuMMFLSYSbzMohHK90cY BjZWxpYWMgZGlzZWFzZSBh dlBudmIiu84bghCfz1NoRI 6lmUlbCTrYYMejQbNgYF2k TXMjifJnu5AdIZ0bVSHbqU KqFBCgcmxfhVRuSSf1fCQp HPUpAmBpdLdny9FaCBCtRE xfMN93xsCbFR5lFThgXO0b AAonRG6wJHVdYAJeRPWeZx KwmYOsTmOysQKqAuChP01q XwSBbTHhz1CaF4dsEG2ppX NyQnnvjRQhRCInjYdhc4Fv yMYzVBSwj1HcaKUmWPaoLM 9cWOX8Qs9riIVpPUJgztQ3 a3BmPHjxOCGqQvvuJTQoEN dye5VgRBIvsNVSt0JnNM4X XHBhciANClxzYTMwXGVwaW CSq4SeYQPXDxrmpJmdRtTv hIVfUsA1IIEohAZoCJG2IB 0itMacONHoQDg0YImxZGOt V1NmL6HvKOxnGnVfGNlrDC HhLBJwRHefOBEsC3UFBXFb MFM4XfIgZVPpKUh0YJumJ4 YPNGUrXQMdEjX5FFY6LmC0 KDv1TWWVJx9rEFqcZmQkJX BqXnW2MXo0GvWhCTLmCfVf DHWxUOEeKVkybCYpSZ1srM xaGVZcNRCkXJF6LASmjXKC z9AbRTNnZXczIiGeUPAIFE MPDG4LEcROPDUhWcQuvHGx CK7XIUAlalYcDRjnjMvovI 8fzUIhQ1wrZrDbSlholRhk TmVzdERvYzEgDQpcbHRycG FyXGxpbjBccmluMFxzYjMw XKRwoSEVp2TtFVCMOjXvMX NpbWVuIEMgaXMgcmVjZWl2 ZQMypB7uCx7jfZUvwT3ltR HqZFynRSLjc7e5oXS8gPLp kCR8hGVlbWpsSsWhYG4jsD MnURUFWF96mSXitvUhGAKo zU6rZQYjQRImXAN4hsogOL EBCZK2gTKte1M8ALirDRH8 bF1gmTuxAgEgP4W9AEHwNC Qqp36gcHC6hhIaYeExZEUc cn7wyS9gVNfnjvVisRurct Auz9A5GKExy6U0MDRtviNe vYHcrYYzJNLhGnG2NNOyMp C3ZQLdLAWqwDZoFUWkGR8w VGhlIHNwZWNpbWVuIGlzIG KwsZZazlGcYLBkfg00L5pw NWYouD3ph5nsIpOpNFKsBC PgiUFtxET2UDTdkP8oaJ49 ikVecyZBIE5eyMZsSL8SLV NiMFxlcGljWHNiMCANClxw CAEkRHqjn2CzJRxypDgvAK QdWsDxXWrUkXqdXMNIV2ra aCPqCXivMENQWIjEQ6HOAS 7UEAGelAQIBUC7NG1oEGan NNNaU6HdU4TszgN9y3vflO ixl1XhnTFrFG7hwMIfQU9F XHBhcmQgDQp9 Disclaimer (test code = [id number]) f6hzqSOcWWYum3urRBOunM FuZzEwMzNcZnRuYmpcdWMx VPrwnvHpRLlkt7UxM8CcRo AwMFxhbnNpXGRlZmxhbmcx IQGrAUY6zgZcFSYkZNkiNZ MaLOnvCp4cgTFqgUydCxRf FGGap1eumeSEFPsrBeHsF1 99WDDlNPfex6xkm5HcZMBe tPWhr2T3EBMAbpbxgRo5mI neR46zz1E9CsjwE3qrCSJl JASpV6OnBU5rPXBiCzr0OC R3BWB4HEJgEXPuQ8ZjYW3v HMIrrEPmIGf3v5jscIggIA ZsXMQ0e4mcMCfsrhHtYG7w uu5lmWz4k6ugicTyRMNkRI BnvGAXQKKzH4FwxXtjOr1q vVx9cZanRacvHYD9Nkw5OR 8olb66ytu8hRmfRSZjkgho CeA6HVtzCTDfnscpKGf4PK deYQKakXM4HLTuqIZiE0Ex DIZbNK0bffd5WHZ7PLdcEY NoTlB8GNRcoYArBIExuFnx JFlwa170NXC1FwJuQY8dK3 Bqp7N0yJ3elKBwUARllHQd GrEwOJZghh6pnAKlHVvhz2 DjBFU9isC7wABjeOPyTXSl TU51Uanjl9XnWgder9DrR7 6vdUM1AEfwj4evYC0yAbP6 urSmAYexa0prlW3bMcN1DY wgNN7yBZ4lPGXfsG8qedrz XHBnYnJkcmhlYWRccGdicm WxQb1qgMyxIQD0LCqjR7st mG5fLfT8BIwfW3oexD6tFF p5SBekgTZ5RJNjfR4lQW8s qmtkt4pbTXxsHPxjKHHugb H1lrQ6RWOfcSOdQ8BpiF7d PMMvBK3jikpjw7wdMIS2GS pnGRGeXTH2TlLeJQNhc0Xj zwg6VvKty4RnbFLkUMkpI0 1tp437FRBavqIsQ6rjbQEl rznubGKsiyxbNNswwvX0IO ZgfmAwx4GiSCTtSHZ9RNgn PKgabWJgFNQnfJiou1mvD6 RscGFyXHBsYWluXGYxXGZz MjBcbGFuZzEwMzNcaGljaF tvULrkUoVdOKVnRPxmH6yl ZfTrI7QrKCViHnMfoLWfU5 ggVGhpcyByZXBvcnQgbWF5 LEqqF8m3FMUgyzWtqEw2qq GsIgLtZBQdLSZ2AWuprEGn DMFul3NpzacogVGsPh8dcY QvOPTxvE1fBVJgASXeIRnx VW0mbFj2FHYOiKHtkDCgDb DKLUOdSD84hhQbBREKfsct u8M1LFqgHGYhv9BrlJIaR2 fld2OlBOUzf70qLK1iy4Z4 m5voKCU5ZD7pi7GnSFKfsQ HilUNvWKSlw5Syxxmgo3Fk JTTrlpNep0KcPDZhbfLpwO ThSLHrevFhjv0exwYuWMIs VKNnQ1ZiuarlzOyymwCxQJ Voai4nlqUkELO7RSPMJMIx UZQnz1VdvK8irGYMMZI9lL Iubu6rbnHHfCOvLSZswk13 QUMgRF9oV8rrLJQiAFKtjg XxqHRtu5NfYOYbuTO7uWYe VB6FEpHPd54wCHVhHVVFdn TmQOLjuOnzfEB0xjH1fG7m IChGREEpLlx+IFRoZSBGRE AgYG6pnqQhz1WldbBqbRze SFMlrSHix7KuhXJgf1HqxN tas3TcyXArdPIbLF4tGXAi clxwYXIgVVRNQiBMYWJvcm M9z2PrKSGqYIMfXSJ6jSfs kkh1ADIfqB6mYJHiQ7mhar yqCUkfKQPzp2LrkJ1ypGWZ fYRkm0ByjINwaSBMuMPqWN 1fvgHhGDvBLStMLNP9xaCc PMNsg1LcODwzP7ejU92gtK jenWj8fYW4MSH9fP9nUiq+ IFxwYXJccGFyIEFwcHJvcH SqHNRqaJhyraVwV6JrziLi bU6syWEapiDoQR0vYK7uU1 S1nTBfZXHsrfTvi8kgTMbr dmUgYmVlbiByZXZpZXdlZC Xff4ZpYAgpDYE2EWkjdjWw bmNsdWRpbmcgSCZFLCBTcG PzjXDdKBJ4SJdeluWvtlAu KG6jpG2tqYrwwD4vsOXmiP D0shymUYUjJPJfrYifFBHr QC5fbUddaQ4sWjRrZlTpSR khMY5aTTKxF8ggkZTqBMOb EFYtM6zsAsXkbY3vzClbUI xjZjJcZnMyMFxwYXJccGFy XHBsYWluXGYxXGZzMjBcbG FuZzEwMzNcaGljaFxmMVxk BbOqSGZrSZdeX5xaHtDbX5 WzXSYbXnCxrVXzO5fzEZny AAV2YKReQJ0icDNbZL46cX Eak6xdWCbvqTmlhw1cH96l qLZlEWzgoZxaARApn37ii3 IxJQPrbvDeil2fLIGonoX8 vA9mWHWhiMmcYTKbvEUhUQ Vrm3LrOMgqhBHugbHwTLvu GFJxECVijTUsebF4xxOooc PeieXnXJFjgCstQZQse3Ps PUZuRRcdr3Ffuw0kxRAaRM QohcOIaHfbrYQpcQ5vJ7Um XRUkFGVcle1xAKMguB1sWP eyj3FkkzgfTKOyDPXaJOQs aqMais4mEADbiQUZGE9EXJ dwaCQsh7NvznVyJ6eWHXF6 NUQwNjYwMjgxKSBleGNlcH VtEKQkta23PAGygW6fsQke ALAupY9rzO8jgWzgfI7fZe NzMnUrCHcoTP5xVWPcZ2um yPEpXHDxTVBmA7tySqVuxQ 9jaFxmMVxjZjJcZnMyMFxw YXJ9fQ== Embedded Images (test code = [id number]) [facility] A[facility]F1013-29-46 19:23:05* Test Item Value Reference Range Interpretation Comme nts Case Report (test code = [id number]) Surgical Pathology ?Case: [id number] ? Authorizing Provider: ?Dominic Keita MD ? [...] HPylori ? Final Diagnosis (test code = [id number]) f1rqhMWfFWMpq9foNTShbG FuZzEwMzNcZnRuYmpcdWMx KRsgycUdBMigaTiyKXL1GX LzFU7hbOsvuQa2fBgaIAVq moK8rYAbONkca5zdEYA6j3 fjugnmCGIwQPdiBu5wyVKq mYisHdWpYECkKBe9uG95AE HnqE3ykHXcPWf8PVWjnCZc bcBeBbGcZQZahLKmaTQ6OV YvOC5pupisOMncIPlxUKMh yrX2INRwuTFpR5BuOIIbGW 5jtkdwFQY8FLjoEUKdLYI2 AuPxBEOje2Rusal0KbKghZ FyZFxwbGFpblxmczIwXHBh scYWFhSWRV3HNKQOUTAWY2 fNLUTWLZ6PFHUMBamllXBo NLIwUIBcVAGMJQ4TVBTgD5 iRIdNhMX2DLDQsZQPgeSSa VCUdvbSVMrDBAZ3QHX3ZAG wgQklPUFNZOlxwYXIgICAg WNVkXAsBE0MBCBRjGQSBX9 SGQQeLWAsaNt5aZVLNDS2T X3uNU7BAHUGMDI3VVDwaNM OiGBGxIQKlKC5VBByxRJNC UC5GVMWYHKNRJOhYSJSCBN AIYAgFCCDTJ9WCHWwHTNIt rxdiRRJtIp9cF9BVMBXFZI wgQklPUFNZOlxwYXIgICAg JCSyKRDBG3BYNiCNRN8YL9 9LUWYHLAFXIX7NQWVGPOrR HA6WGOKPAFPXEPBLX4FkuB FyICAgICAgLSBOTyBFVklE WJ0NBZHGBmQGHYiKSSVtHD lTRUFTRVxwYXIgICAgICAt XZ4JIOcvZUEHLX1UDRRMCo dBTklTTVMgSURFTlRJRklF YPHHQYVTBM9TWl6VIVHOYk xwYXJccGFyfXtccnRmMVxz o6WvB3PgPrGuDFzxqiWdBI SqSzoeiuiiYSAnVUH2imAg SMSdTEdaTGQiXXyeJq3cbH WblFgcQqYsXBJll9mjuzCX ZUsyWvRjJ268MEVnTRmof7 tnw4DrAZSxeCGzq8C5RGOL oxraxGj2k6udJjSzNtE1yD JmZWjwL4meccLghFAtH5Ux wCGrrDb3eAlpG50xz9N2Jf rvX6ugLVGsHAUfT2VaBH3c TUDeTvl5IKT5XXJ1ONPsTH RlJ8CzQE0fJBGomJBtQEv4 s8nrzPnlQOVmEEM8m7lfWM dvxbM5IM1rml7bzJz9o1aa czEgRGVmYXVsdCBQYXJhZ3 VqvKdvJc5fuGk1iHccHryw WQG1Zke9GU5hky35zhz9hG caNLCeddeqGbS6TFtgFHFi niuxEVv3HSzqREEmsDI3VI WvgCSwD2QlNNQtBN3oqga1 AZX4ZNcjCXEuHdI3JXOvzD VvQUTjjPuxMYdts247EUG9 UgZrVT9sJ8Azs3S6lX6dtV UxGRRwsTGyOdFaVYUkqk0u aWOfDYozm4XvLLI6wqP6kL VbnKXgQYJqLA13Rpncz1Bx ZtchEID2LJFrlrIph2Rlr4 kaBoIvxgGwG7acG9NiMTJd AQIpUIHaVoVpqoKlq8Hql5 OdhHCzcIb3v3ayFEWwMBAh tTodt8rxFLN9TENhH1P5sC Bbf9jxTHrkQRNhoKY9lxH1 EXYjpMCaV1SjdW3qDIKdIC 4sqbm8h0ycTDO1MGfgJYHo DbA5kbV2XXAmnEBwKREjtT vhKNjos869BWJ5FpJtHBXz x4BjS4LppDapV81fgBhsP5 0pMGZemQoloJ1huEcquD4l ZjBcZnMyNFxxbFxwbGFpbl xmMVxmczIwXGxhbmcxMDMz GUdeC7nnJaEsEHEnpMbuIL lvu5SjMVGbUUNgFnuhqiSz XHBhciBJIGhhdmUgcGVyc2 9uYWxseSByZXZpZXdlZCBh dWygn8UrN3wrHN8xV8TboL ZorqSjsdDpTVvmPMYua5e2 lKEpgWyfv8TvsYTmXZ55yw PnAQCcQSI1ZIQuu9cqAT24 figdOlQkrA70alQfldQgBU Cye7cbP5tmkMQxe0Bpk0Ub fnUqSLqjy0TsVN1qrBXqzq ercJN9MUPzxPSsgeNamvT6 fEmqHHGyjH1liH4zpMtchA 5sSoPoUnXyKDoqLU8pTFUl B8khsZZpWYSkCKBvS1riKm QbtO0ywMqvHefiiqF2SGNb cn19 Clinical Information (test code = [id number]) Shivani Schuler is a 47 year old female with IDA1. Gastric polyp x 6 r/o adenoma2.Duodenal Bx, r/o Celiac disease 3. Gastric Bx r/o HPylori Gross Description (test code = [id number]) p6eabZTbROYihDNDXNT9VC AvUF0xzBgozXi0wYrgFKMl bzY6cWPnCHwlt0eiURZ8e5 batpBYMdeeVYIdMZ7cZBox MBHvDF1lPqLlLJCpAyDgDY BhcGVydzEyMjQwXHBhcGVy yTT9KCWjAX3cyufqXWmiXB vrXVHbamV5TFImlXNkC2Vw BTBmSM9mktjcVOS6FXUZKv edCn3sgMMwaLzwUgPoSfWw YXJzZXQwXGZuaWwgQXJpYW a1iK9TBajbAWR7RGOSYxru QppnqPqes4OoaATkAVMdCQ xcaWQgNTEwMDAgXFxkYiBP PaPeWiR1Vei3MCB3DkV9JE j4DMUMOOVeYhyjZPT6IyE0 DMi0EXQgKP5rGYpiyVFdSZ rcPykxXJatF154RJlfDAOa H5QcL9MgORwgNuQuTXybKB OeHYDlQTffHFDrU4UVKPOl WKR8SjKzWBCeWZo7SEvxV9 TILPRcOHSkIaK8SUHtTiD5 GTv5GWMAJq6rKKetOeFjYH m2XTK0WRz4RtStJYZfDvBp JODdJPTeZWeyjEDcRM1lpG khHLIfOO1ZWDOvKOndFDCm ZoJdP7PFW9wQNW5lFFkxrP JjaFxmczIyXHBhciANClxw EXFfSF1KRNFkPRfkLWo9lk XuRMZdXcNiNEByA47zi2IV m4OvFV6YPXo1dzYzcsuivN 4sNMZpqoYrRQfSvHUzhZ5l fgSVJYscGXYdQ1LazqTmRI zoSZUlwl0uzEngSVzsGhPc bGVkIHdpdGggdGhlIHBhdG gccgKhR1T3gvXrMD0oVSQR RPXeaQ6fFOSgTTGbw3ZdeT LriFvlA2CilDKxDnSkw9u0 qDU4RDJwzrWwLMBesMFpSQ Cjpx2kIAntVyCaH1M0ZIQo CLGwj40jxLF1fzUxYyPlmI l0wZXgMAY5NC3elFqyatIz l0a2iO8sHGCiw4N8PTCvj9 M0BFHcxuSxnOTigBMmHMYh VE7hkdFeCX21OONvQCjfBU ptIZR5FBP4AQZsbCTzk6ar oyibWp3iDWmfFG3rGLhuYK 78MUWzYVcxWQPbP0GmR1R4 BNqfQXStSAVupFKvqA5uzd BfqdDzdVq8HESvETC9fTLc oSryDYJdUpkumNY8RIYbMt IkevLen5JbaUa4zFTaPVmc UZYoqX5ttH0pPRIqHHVsvo LNLngkUOWeSJysc7LxGQbe cGljWHNhMzAgDQpcZXBpY0 6iq0HFq0Gvq9clvEwlp7Oh fNFoPH7vgOInKG5Di3vdRL EgoMWsQBP1IRffh2fjGBbg PBJ0YDGhQeNtXCMqIB5GRa TlNIlkSVe6VIzySZl2OSo0 HM0EXkTgGVJxXjj3HaY0Hr YkNIv5CYydAM9IEEK8PWAj QVKvVExwMWF2VITvDLy3OA IgXFxzcyAzIFxcZmwgXFxu Z89tmFEeXWxrIrOrISvzjF rxRQKbALS2KC8TZTQkHzNj U0HAV5gQVM1fLohwmoGgHU XyqaMIAefuKYYjUS8EIREu BAihZEl5diQmQSCxGrUjIK VlV94qu2YOk6DrBE0UEYv9 maYvaxsflP2rJRFdzrAxd2 IzMFxlcGljWHNiMzAgDQpT bVHbfU5myrSWOArhJXCvT6 PglpEeSEskIYPeea0mvIih IGxhYmVsbGVkIHdpdGggdG joLVFfaIogefQaE0A6fzVt RA4gPMWYEVFfgS6mAKCiGU GgGPQrYRBwwY9iBPL9w2Qs llGeNSOJMAHprGqgVO39pO BjZWxpYWMgZGlzZWFzZSBh qeYsueRjv83jsjNyw6PmBF 6zsZcmLYkSRKdeUkXpBA9f SMCcmpXjz3IpNJ5cNOValF YsPDGxpzcvnTZlNRg0sOJo XMTbQnVwgPykr8DmHSHdUN dwFY62hkGyIN2hFAsyEJ6m OAvfJZ3tEYGsMPKyUNPzAf WdvWQfQcAnjJJzDiYpD46c JcUViIDhe6HmD8bkZX1fzC PhGhcgqKXxMYVxkNiso2Pc nKDcVJPur9KgqFOlRCnaLT 4oPJR1Fu7isACtYAIcqjS1 w8TcNNcdMJWeOdbkGLPhXU kpw4YiAZWedADAb9FbVL7K XHBhciANClxzYTMwXGVwaW UXh4VoFOBOYojrsPzjHaAl xGOoVmY6RDMokLOsYUB2XS 8qrQywIDZuUBl3LTosMRAo H1VlM9WbBZihYlMnYQndSI DuTPTdWQpiAAFwW5ZORNFw CZR8VxZaNUJvCAb2LZzfD7 JSMWBpTBMrMmV6LJA3BcQ0 PYk8DYCSUr2qENvvGoIwRY AtSxJ5HEj8PfOnPFDeJhKk IBHyZLLuMQammWZwNE4muW vkFNGjJHBfVFX2BKFuaXTW h1AkSGObDYiuGcDxRXJBCQ EKOW2OAgSJMXSfWsMpmTNr JV3LABRdvuBgGXbauRaohE 0jaKBgW1afNqVeLjkpeOmq TmVzdERvYzEgDQpcbHRycG FyXGxpbjBccmluMFxzYjMw DFDcpNSNt0NbQGXSUmZpHL NpbWVuIEMgaXMgcmVjZWl2 RHWqtT5vSb5jbZJoxV8neC SjXJpgESLvw0r5hVV1wNEm bZY4hLHtuQhbAzVhWU3yoT WiGHILTO59cWMeinVlXQKu rB8oLRXdIYFhWDN5iuhrHK ESUPK7pHZeq2T4MIzvDKO7 oI8eiRmaUvKpP7F7XZWyRV Jda84qqHY2swRlAlWtYRXu ul9zmE5jUJjnvpSzwZhcnb Rov4B8CXOgi3L3BKXyejFi mHMehAKvBWMwKlE1SUFmIl S1GXWvXOFhaWCtPTAeNR4l VGhlIHNwZWNpbWVuIGlzIG KsvLYaxqWdJNBgek13Y4wd TYMddR7rv5ebRtXvDXAaQI ZjsDPavWP3CFItiE1efG75 jpQydkUXIZ5kcRHhQA8YGN NiMFxlcGljWHNiMCANClxw XMVgFYypk4XmLOmecAclPX BlIlEvVDdOiZhdBBONJ8zi dZJkURttRWFSKZtGZ1KTXG 6NLFGflZDBWAQ9FU0xRPme PLByJ6YmV4JlmbC8y2aefP zjs0LewCHtXX7noUZgFN3H XHBhcmQgDQp9 Disclaimer (test code = [id number]) x7ducHHlHNPck9xpWWPjfF FuZzEwMzNcZnRuYmpcdWMx OYdjitXiJTkwk2GlY7BoTz AwMFxhbnNpXGRlZmxhbmcx USReVXK1wcMkYHOsGDniUE DsCMnaJb8mxSPihHqhNlWb OHGfy2tnliTLZJfaAeFrY8 25VRLqUHrdt9ugn8BcRMAi tDHdn6M0JCNPrufkoAw0yB xkL69oc7L8GpzfX5paIUQz VBKzY1ChMJ0eRRDeMvj4TO T2YDQ6TUGkXICxH9OyDI4p IDTurJLyZGn1t7pnpGkuEJ KeKQL6s0bwGNimgcLcDA6p gw3lqCb3b5habiEeIMKnRN VzxZWZSPGwW8FszFpoMt6v xQs5mTzpYnpyMAP2Sso4SJ 7uka18vqn6jIumMTEgxqit NsI3XZedBKOxrexfUPs1YD yeIBVfyLZ3UNOjrFZkZ0Hn WUGhFH5qkrp1CKE4ZLokBI DoDeA7RYSvhKAzSTSudYpv VKdtz430KCC6UsDtNA5qP9 Pfi8X3lB9xwZLgIIQibGPh ZgCdTGWrla9ocKEhASduz1 WjPSQ9oyF0oHKxyWDkOCXh KK93Cfjue6BrTcxuc9OaT9 0liEV8UQxpz7pkWS8gKhI7 jnMyJVbnz4gfrC2wNoT1LL tbYL7rPL1yITXidC5qenwt XHBnYnJkcmhlYWRccGdicm TbEq4lfXooLHT8AFxlC2zi eT4gNwF7DMtiY6otfA2mDI g9WYekxOD9MUBmuT6qDP9h vhoji0qiTLhfFWpeHTXojd B6hzB1SVNjhJAfK8VgvK5y MMRzGJ0nrfitk4ajCSN6RL kgFVKoAAJ0RgUeCUIrx1Us cyj3JbThc8UcxCJpSWrjW3 5za697PRIscdJxS0muaZAi pmzxwEQfaoflHPujojU4JH EyuoHiz1GrAGOlJGL8CGrr GEddrRSaJKPtpEbhc9wmM5 RscGFyXHBsYWluXGYxXGZz MjBcbGFuZzEwMzNcaGljaF ugGLgmKjIdAQOfKAakR2su XsNaI6CbRZDhKyQrvUNdG2 ggVGhpcyByZXBvcnQgbWF5 TOkiO1e2WWLubhOzhNt4xj AyVeUfIXMnTTG9YOgwaCOx HCRxa0SfpcubkZSjVk0xqI KzKHWhoT6iXBCiBTDvXZav OH1lmLk9UTWNdMWzbYNlXp XWDTPqCV75jeTxUJHDelhw w8Q2OQngDGHoi7IhdJQcT5 wse7MiUSZhx74qSG4by6N2 r8cuWAC9LX4oo5BlNOQhfB LjzWVlUDOgu7Vlwarci9Tl BMGdfpEfs1WvABSyjmAmgW IbELWuknRkca5jbwWnPYZs CAJlA5BdwzejjHzvhmAsSN Axpn9xvfRlHWT9CHJTXIRv GFHqw5IscS0cnGZGSEO1sF Vfqu4pooHYpNEkZBGgpl44 EJAeFO0yQ3hjXKIlUJUglc CjnTEfz2KoDKBuuSS8kWQg ZG6EKjDUg33sUUNzIVSEfy ZzDCEphSfixUT4jtP8oQ6w IChGREEpLlx+IFRoZSBGRE ZhQP1pcfZrg6UqsnBgxSbl DYIxbOXvd2ApbTIuq7EgtI spk3YujAGzbFHpVE5fATMq clxwYXIgVVRNQiBMYWJvcm A9v2GdKTUtHRWtWOH7tLal cpg6HKHapS0fEXWxL1pdvm oaNFykKFFhm9MobH2bxAIT sVQbu1JvkNYgiWACcFNbJB 0yxxObOIzHVLrSHYO7jqZc LPFzp7ZyLHthR9loV16rrK covQr2pGP3OZQ7kW2wSoz+ IFxwYXJccGFyIEFwcHJvcH DwTNLkbIathxEyW7FpbeEk lH2hjXFgvfNqMV3ePJ1dM3 X1oYCzKCIyfiNle2rpSDrh dmUgYmVlbiByZXZpZXdlZC Ios0OjBYgyROA5BTnuunBy bmNsdWRpbmcgSCZFLCBTcG DybCOsAKW9SHqixnNkdoZs HX7uaV5abQsccC9eiOUdwG H0wxoqCNPtBTBhdJkzJHOy IH2mwNnvhB2zInBjMlUfZH cqEM5sEHEgL9whzIVpSMHp FSMwC5zdUcUuqL2rlTttSW xjZjJcZnMyMFxwYXJccGFy XHBsYWluXGYxXGZzMjBcbG FuZzEwMzNcaGljaFxmMVxk EzZxALYnRVbgO8ioFsPdC5 BoPPUsPhWgpTBzA8juRInl CJJ7CRVpRE2ogGAkCK64iI Duy2qcAGnndRqkft7iA89r uDTrIRwlhQvjIILbf23jt1 RjOHCpxfYnbl2cFANjnuE4 pM2vHRTpiVlxTTOeaSTeOT Ien4NbCHiqpYZbinFeLUml JFMdNZIxwGNowqM6plVvnf GxkgDfAVQkyNkbUZLlx0Hu UDPiCBned2Uxkx5qaZFhXY BbhpIIaMktaSNfhP1bH3Vd BHZaHUOuit1mWFVosI4xRC dws7NtbhjnKKBaZTZjOGEa keIwzj3tLAOheNJXOG0ZHG ztkGImf9WyrgSpD5qBKSI5 NUQwNjYwMjgxKSBleGNlcH AuGAEdll56YBXtvB5hcBjt DREvcV1zhM5hfYshwZ0zXa FvBoPcEXzyUJ2aCUXgF7cq lOSlBILcTEJeZ3vuNyFdxK 9jaFxmMVxjZjJcZnMyMFxw YXJ9fQ== Embedded Images (test code = [id number]) [facility] SUAQ9999-11-99 19:23:05* Test Item Value Reference Range Interpretation Comme nts Case Report (test code = [id number]) Surgical Pathology ?Case: [id number] ? Authorizing Provider: ?Dominic Keita MD ? [...] HPylori ? Final Diagnosis (test code = [id number]) [id number] FuZzEwMzNcZnRuYmpcdWMx IRedpcKyLYlroVhwFEI8WQ WzJP3rqAlgvOf6tLklYTVg jdJ8oMNdABzsi7nhTBN1x9 cunlmoYNIbKNmhUp1zpXMn kDzbJjHlRMTwEZa0mZ96JB WdeO4ibLZrALn4WBPrmALb ptNzJxKfAWLbmDUuwSQ3VT TzHY5aqtsyPXqmYVxvVRZo ksO5KHBjpWBqE2LoNKPbWK 7tzettWZF9VCldEPRvZVS7 FsDeIQWic9Qluut1NwGsxD FyZFxwbGFpblxmczIwXHBh cyUQCbLBTI7VEFOKKFKKY4 lNUNQHHB6QFJMXOmjloSOx AURoAHXxUWNKNQ7YBQMyT7 wKJkQkJL4CFWKpWVQdqNYq SZXfkfRBSeVDPF8UWR0AHD wgQklPUFNZOlxwYXIgICAg HDYtLBcSJ4BUQTMpWLTFD4 ZYVWrMUBxrSg1vFJSPMG2X R0vDU8GAJOACRH8SGEbtEH NjBRThGWCpEJ8ZARrnBHCL YB2NHVNLCFGOLWiVXGNPCX GNAWgGBOUOO2NJSGqVNDMy pogzFEQdGr9wE7ZCKGNRYU wgQklPUFNZOlxwYXIgICAg XNIaZQPCV3KDKyIORO6PV7 5AUDIAXAYRTW6KGYWMQXlH MT0BZRHJDUGIKWWFB3XirX FyICAgICAgLSBOTyBFVklE CI6TWIHROcBRQJgERMJjIY lTRUFTRVxwYXIgICAgICAt WI0VQOxyBIAZXH2HQGSNLn dBTklTTVMgSURFTlRJRklF DMHOZOZRFS2ESt6INAUARd xwYXJccGFyfXtccnRmMVxz l2CzF3TjCoGpTXcgdbYdZH WeLotyrmuzQWIjWGP7nnYj RFMlPNfeDHGsIDgiSy0oiX QrkHgyUeVqGWUjz4yddvLZ TFjhXiAtY977YLGyWRpit0 dis3QmJFBwvJCji5L6KDTU pkckjMi7r2yxIkGpDiA8jJ YeSRdqR3kyeuYgyMZkC7Jp eHQceFl5qBasT86oi7G0Bq gzW9rvDZWaVIBuV8OhER6d MOTrCbq6JIW6AOF1HZPkCB SwW7WfKZ7zYOBfkZImNBl9 n2iwxObaAKUdCQZ4a4yvRY pswdF6ZL3yjf3vsFo7k3pd czEgRGVmYXVsdCBQYXJhZ3 SxsKxzTj8ksVj0oFuaMrul ZEJ2Fqk9DJ3hsj68jxc9lM sjENHknokeNnB5HDdePCLg xfhvMLi8EFykFFMzqCC0LN SfiPOsF2UhUAGoUD6bfco3 EUW6OBiyUKGrBdT3QKSbuM ZaUYMsjIjdSAqlc019TPX6 IaGcHB4sY7Pte9A3kU5eoG AbOSJclUUoYjMcULHhgy5k hJArGJhar8GoAZL3rdY7jS OsqKZqQKJiPW49Pdanx6Vz ZnssIEN5ZPImzsOym1Aqs7 xgTdFwjqLcE8rfJ0YuFRYv KNYaSQCcHaYkarNzg0Kfg9 RdmLAwkLv1w3xxMILkXUIk kOiyw4atLOE0OQYoV6F8eG Ayj8eeOSrpVKKblWP4myI8 QGZuhYFuL2MjuD9bPQHfDO 0mmvn3o7alAQM7XKrbNRNl FlB3ksX7EKDnxPKiXWMllP syCUpdv126CVA6JzNtYGPt j4SaU7TcgBgkN72rbYntA5 6nKLZomWswsF0mbDezlQ9l ZjBcZnMyNFxxbFxwbGFpbl xmMVxmczIwXGxhbmcxMDMz ZBnsD6hmEyNeJDEfdNqnEX lwk7EyEMQvFMQkKneeeuOc XHBhciBJIGhhdmUgcGVyc2 9uYWxseSByZXZpZXdlZCBh gCbrc6UwI8zmEM2xI3UbcO WlwcKjcfByWCrhXFNqi1o5 oFYygFxnc3YyqPOgFO09ut CuYHKzQTS9CDKwq2xiJO37 jegmMvHoeK34zvYfgeYoPS Qvr7fjI6terUYzr9Eho6Iq bvIvMOywx7IvXH4osLNzdk ictLA0KTWcrRRmqbAhseJ1 vAzbAPHjkV1mdT8joQeqkH 0dQrZzOvJdVGhtLC1pFUHs N1tijFBqNXNiRCTqJ2exAf QejT0wjTdmKcgwlyW9WYSw cn19 Clinical Information (test code = [id number]) Shivani Schuler is a 47 year old female with IDA1. Gastric polyp x 6 r/o adenoma2.Duodenal Bx, r/o Celiac disease 3. Gastric Bx r/o HPylori Gross Description (test code = [id number]) n5gtiATbKNCcyRMLYTN4PG BpKV9wvZiprEw6pQvdKWMi jdC0dYWjDPjwg2yfPXA9g9 oigqRCTmdxBWWtKH8aAXxs ZBQdUW4zQdZdFVErDbFwQU BhcGVydzEyMjQwXHBhcGVy fZA8CMNbOF0htnrcFKpnOL diZDHijhS3JHUvgFOwQ9Dd DUSkWS4gzlwkRWT2DUJWUs ghKl5cwIHbpTrcBiQbQxEt YXJzZXQwXGZuaWwgQXJpYW m0pU6QNqslISO2AGLRPopn IzwrkZgla4FroRVlPKHdMH xcaWQgNTEwMDAgXFxkYiBP EzPjAoW6Run5VFA5XiO3XM o0VCRWGTCzFenbHBT8HkU1 OBe5AHYrFJ3aZSgijIKtOA vwNpgsTGeiK604RYfiVTAw L5MnG5DmJSeiYmYvRNkgDI CmUXNtWAazXBLzO2INEXRr UBJ3LdBySPXbLBt1TUtwC1 SERSNhLBNpItV7GHGfEqE6 GVf0YRLDDv5wWWywNlQwWF o0VPQ8NAj4XtBqYQAbOyRk XNAyEBPyBOyxqOHpPO6vwU lrOYDbQI8CYRFsBSdrQDTk CbLsL9ORJ4cFCK1kSJkkhW JjaFxmczIyXHBhciANClxw QOYgRZ0PCTTmUUanHDr3ns UnSHKiUhZpZTLwY82fx6UI m3LmYG8GIOq1ozQduemiiN 8hNCVkinYkGXjSmUFuuT3q whVHIFpaHWMfW9NaldClQJ knLYXvxp4xwRkdWEbpOuIu bGVkIHdpdGggdGhlIHBhdG fameFmG2J9nuSdYE8yOLBC GEWhtG3cGCLrQAWzb1NppK BevAujG5NnfGNsFpZja9p3 aLR2BAEevjGjZKZocMAcAV Wvlq4oIVfsYgXoG8L5ISYh JJCgd77wsSL8hqGrVnHrcC u0cXQjEDR0SS6azIncszUi p9l6rK4oBZHbu2A8KUNvc6 S3NKUgyrQwvPGwlFOxAGTu LH1twcTuQC27HORqZFwxGZ dmXFR9BQJ0NGIceBDjh8hk lxlkCf7xBYafDW3fVUtrVY 64OYJoPQmrYFLtJ2BpI0I2 MHfqRVBaQVDxwRKfcX1chi UoenWziWt0AVAsZXT9gTWo vBqrFEXzEhhatPJ9INKqEe UekfNpv3DanRz9lTQgUBqn PAPmtJ7urG1kXNAkGSZirc UGRnebINRxNTdod7TgEUrb cGljWHNhMzAgDQpcZXBpY0 2hj1BEo2Otw1ijpOymv4Id fQEnHF2bqKLsLH8Ed5nhYK FaaYFvLGN5KNzyg4ehADbm DOL5IAUpSlYzYEMuIX9JIr EsXGlfXZn3LBefUBh4HNv2 LK9WOyLoNRVfYwg3HtH2Ui EzGDc3KDoiLL8YMQF5QUTr FTNqRZboBEN2LLKgSXf5LS IgXFxzcyAzIFxcZmwgXFxu R55hcSYzYIeePoNyDMxikV kwYEUlIPR8MH0EEHRaOzUo E8ITU9rUBM1rKlsujlZaBG JhnbCNZqayDKLaPB6TONTy IFurZIp7uhOrGDUkDbTsIJ EjE55uz9WTt8KvJR2PWFo4 idWdrpqfdV5xGUJyciOti5 IzMFxlcGljWHNiMzAgDQpT bPUslX7uwpPXEKydLELgP8 TtmkLbDCisCJRdnq9spVsz IGxhYmVsbGVkIHdpdGggdG xaHRBdgLkjvbAxH2P8drUh JL1eITGGRKPssK6mHVLoVD VpUKQbOCWmqT0dLRG4d7Nq jaAdZBAHPGLxlIxlLJ00mM BjZWxpYWMgZGlzZWFzZSBh bbBqbyZvv67zweJzl8KgOW 1wfZycUDjPFYojRtLdXB6n NTBjptVqk9WnLB2mLMHruG DcYBBumyofaVBzQKi5mJVf NPVbZkLfyHcfd9DyDIFhOZ uqNK49xiTjFL5rDKklQF1s CBoeQU8cWKUoVTRlJBLvWg IpvBHtQmRfcNObUvTmW62q QtSPmDVfd0KxQ6xlEL6nwA DkNutkzMKnNBGlfGyqu9Ld zDJiARMod4HjfGJrNYndTJ 6qYUI9Yg1xqSYtZFZpcvS5 v4GiISjzFPUtOrmlBECxHW yag7OhFJCxpCGFs7GgAK7B XHBhciANClxzYTMwXGVwaW ZVh3TdHPXTMmzmwKgkBdVg oNLrCrH0USRcvNWaSSO8ON 0mjTosKEQrLCv0KKmtQNQu I0OhJ0KxKHvhYgOnQLkcFZ YaRHWpRFytHZRpF8YTJSHz LYB4EwHkLMAxPMf3TCnqI6 VDWXHzMYJjGdV9QEZ0MnF7 AJt5AYSLRa6gJSwhTlZjWO IaEvW9AQd7EoFlNTOaHaMw ZTFiTYOhSBatlUEaAS0dmO rfRYJmQVQjJIP3GDLffGAV s7SzSZZpACctWlSbXPIZLG POCB4VGtOHZQEfWaEtfNBv QC9PAYDoyoVaEVabmIjikP 7drCTgX5vkUqEjIojjvLjw TmVzdERvYzEgDQpcbHRycG FyXGxpbjBccmluMFxzYjMw LITchZJMn7HhIKJHFtNsMZ NpbWVuIEMgaXMgcmVjZWl2 RJXziE0cPb5pzGQdxG3xyI SyCKniRTOpo3g5vIV0gFRk mRA7lGMyaCzfDcFsCH5vrT KvBCYQTC31mPEdbbOaBMYi rG5dCQDaKXXxRNW8pqzaCS NJTLF4sWEyb6A2YRpnAIL5 qP2xuOguScMnI3H1DWQpZZ Meu09fjMI7kdRuZbYyPKPd uw7laS6kJRstbwBdoAdsha Oui4C9TSLln2R0EJJbdcYq wISmwRJtRQIpByJ7BRKbJs Q6ZMItOSBncSRwJHJwVE8o VGhlIHNwZWNpbWVuIGlzIG DdoUIourQrDMJuhp36E7ny NCGbwX9zn1oyGhBrTJFdBC NocMNppSL2DHHokC5xbD30 ibHjoxMYBS2njYYdDO8XZU NiMFxlcGljWHNiMCANClxw XBXfXOddn1NbVKfczUxuLY DpIyTdMDrApKkjCXHNP3cc uJQqCHizOQJEKNzUY8XCWS 6TNOKsxQXDBSC3DJ1fYIyy ENLtG6DhB9PdouW6w0ldmQ ezd1LopTSkTX0ozUSbJS0D XHBhcmQgDQp9 Disclaimer (test code = [id number]) g5uyfPFhQIRkq1fmCNVigZ FuZzEwMzNcZnRuYmpcdWMx WSpbjgNfMQobk0NjS7UuFl AwMFxhbnNpXGRlZmxhbmcx MSBqXUG2umPgCIZqDVuoHB CqVXpmSs9hbBGfiPukJaIo YEQni5kmhxXGUMpqLxDeI3 40DCVuNVzme6pov2JqGZZx mLXpi0T8EBLUrtzbbDa3kV kpN09ox9N7MuapV2rkCVXr ANOmI7RpPD9uPHUkBps9ZH D2MIW2NKErCRAbZ2GgCM5g PQFxaTAyCFm2r7zymGrvXH QiVRT0h2vnIHfrlxCoKO6l mi3seIz1p9ekiaBgNJRgKG HtcDJTQBZtR3XnrFysRz5o uXr5dLtkDnhyJRL8Bjb7OS 5rqt91wnr4fWgnTUVajlzc SyS1RTvbQOYurgxtQBg0ZK rvHJLdoFG3VHPwmVLoP5Ab CDViJG8lyih8QYB8HTgaXV EbSbN3JTBnmQTpFKZnvEhp NGgpj311NNV0TfXnHJ9tY1 Rsa2P5jQ9yxIFbKJSdxCVo AgWmOBRsri6noNQyVMabh1 VqHSQ3jlU1hVRdtLLxCKFt KP61Xtxqj7GbOdgvj1SuH6 1grQV3UQgka6dwSO7zKtI0 vaLuFHwkl8guuV0bYdG0AA ynPP0sOJ6mDJTobX6ztcna XHBnYnJkcmhlYWRccGdicm RrRq5gcDbkNVV2VZipV7ui dJ7fHiF5TNmhG2zxdR8lFL b5WLpfrVL6JNPnyU6mGT2j ordqr4jlUIiiIAxhTPDcih M3xgL9MVBdsVPjL7VbmE5k AXRwDW2vujbbv7hzGJQ1JN mjOBJfYLY5QxNbKDCuu4Xi puy6JzQsc4WuqYJhEPiuS2 4rw434NYXcnlQnY7yymMJv sqhiwAAixcjnUUzezbP8YN BqtdSwg9FwXLJzHEH8XEdi QXzquPSmFZXcsUqjc6gwS2 RscGFyXHBsYWluXGYxXGZz MjBcbGFuZzEwMzNcaGljaF tbWHagHpVnUXFoJWivG1cb LvOoN2EmTRVoVvIdzKPfF9 ggVGhpcyByZXBvcnQgbWF5 CVbeT3k1DJEuhnUuhGl6sw MrEuPdHLWdQVR2JBdywVAj RAYct0VyinkrdJWeDy3esQ DgGSLudE8yPPLwFVSvVZjq DH5ynFt9DKLBmNPuuCOlGq WNHBRrIS21tmUbPCMHgbie p1J0EIxgUHZzv5LhqXMbI5 gjk1BeCMEih11bVL9gc7N8 c2spKFA8QG4gh3DxGGMdrN MihVYyJNRno2Efxflty1Un MVVsymFzk7QiKOJuizUczB IuYWVvbrIajh9radVeLKIk HJAwU0NemtdyxEpunfGhTV Uwbm0efqHxEQQ9XTJULTFi JEKgx2CsfG7reFOXAWY4zH Zbsj3ufwWMoVUcGLEbwf52 BZPgMN8uO4gwBFCxEKQkus PdsENmf2EjIKMtvUC9bAXv IR3IDxWIn46hYKCuIEQDqi QwJPNiiKlusZJ7zcP2uX7w IChGREEpLlx+IFRoZSBGRE PdYA2dmnOki3SvqvZboCkd RPAqwWIeh8JxaJScn3HavP cul0QiuCQleWPyGA2oNUWw clxwYXIgVVRNQiBMYWJvcm E5k9AzQNMvPXIuXGM1zIzn hxs3PYMhqZ4eNLRsW6vnje lzKPknOSCfl3HnuA4hsQAY jYDmt4OmgTVrtZLJvHDbZT 6wtlNxJMoQYNaVZVN5vlWn XDTtr5GaPHtmS1srJ59arG hidYz8vCY3XEL8wI2sHnr+ IFxwYXJccGFyIEFwcHJvcH TdVOWapFjazsWbW7KweoEp qE0jyDUkkvXoFQ2zXB1eS8 I6xPTwQTAastQus5yxLHvz dmUgYmVlbiByZXZpZXdlZC Hmp6EnHIykEKS4XXyyqnDl bmNsdWRpbmcgSCZFLCBTcG YszPNnFVY8XWhkmbNrpfEt PS6xwI5giIjfoA7lxVMpeT Y0krhmASZbNQKamVfqQLWb MB0lbYmltN5vQjSlHcIwZS mlBF6cVIRfA1kjaSAwZDQf RMUaD5fuRyQfeQ4neUikUZ xjZjJcZnMyMFxwYXJccGFy XHBsYWluXGYxXGZzMjBcbG FuZzEwMzNcaGljaFxmMVxk ZoOvSNVbOYsvV6ipCtIjU6 JlIFLfDfKluKGfB6lgFLod AFO4VXFzAO4ysWLiZA88sM Ofy0qeHEbtzUklzk9wB59u dTGhVBoazMmiMFWyr02gf9 KgXCFuqsZkqp6kKYWlcrO9 sG2mPZLthEqdSNPoyRRyZV Dtz8CmNFhadRYwdeNnKSyo ZCBtIODzqKYislS0xrWvnd RdwsKvQEXtvAmdFWDfk8Gl OPYnKVxhw9Ahhx0qvCKfHL TvuuWCiKxqyPGsiE0pW6Il MHKoFTSzro3fVUMnvV9sZO bco6JvnbnwWPRaDBChIQOj pjWngk1hXATkjGYRRS9LZI xgtJYwz3PgrzCgT1wFDPY9 NUQwNjYwMjgxKSBleGNlcH EuHMZhcm79PWKpbD7nsHgy LNKalZ3ewI7ncJgpwH4kKr YcZfDiGPanDX3hVHIqC5ki oEGgICEjVAUyT8tkMkBahA 9jaFxmMVxjZjJcZnMyMFxw YXJ9fQ== Embedded Images (test code = [id number]) [facility] [id number] 19:23:05* Test Item Value Reference Range Interpretation Comme nts Case Report (test code = [id number]) Surgical Pathology ?Case: [id number] ? Authorizing Provider: ?Dominic Keita MD ? [...] HPylori ? Final Diagnosis (test code = [id number]) y3xlaHZvRCVqr6fbDJJzaT FuZzEwMzNcZnRuYmpcdWMx SAzirlExIKjkxCpsMHF8FQ QmWJ8qmZguhUf3wLuuZRQx ugS2vRAnTCdhe4qdWDF5t8 cvkzxeKBOrUOztUp7ykJBo yMusKhXrKYFuJSd4wA89ZZ WmcD6ewSUoBYt9ZWKtnCQg lcUrFpEzXXAvzYHfaCO9AC SfVA6vipmcSWmvLOphAHGl deP0VUAaxVUlD5BoZMHvHL 8xvezbQRK7ZNpcIPTgZCS9 NdGmVUBto4Jqqvl8WhTnqE FyZFxwbGFpblxmczIwXHBh vdLBHmRNFJ5FXAAGDKNSG0 vYLVMKUK2KLVHQJjkkqSPg GDVfWZTbBNZWUN0DXUKwT4 rNRuMdKX9JPKVmUJQdmWSj JARunkODFaOBRN0QYF2BOF wgQklPUFNZOlxwYXIgICAg LGWvVAvQR2BVKWQtVZOUL8 JWQCbUUZvkUs5hEQIZXD8M Y4eSN1HHEEVJCE4IAJlmNR BtNGZzTOAdPD7TPLyiKZAS TG7ZCJNESRJFEVeNIYSCVN PKORdWGVZVN7AIPStJYXDx agwmFBFnOa8aG6GDGZJMIF wgQklPUFNZOlxwYXIgICAg FYBtFQAKG4LAFrHCQC8HT8 7LIPWZEGYEJK2PLSJIOCtO ZG8CJZEDIDTDFDKZQ9TrrJ FyICAgICAgLSBOTyBFVklE RR9GQUBLFtZZYPvEBQWwSG lTRUFTRVxwYXIgICAgICAt RA2VPMgvCOQEQA7VINDYWb dBTklTTVMgSURFTlRJRklF VYAKKAKHNW9VYv4EQTQVTv xwYXJccGFyfXtccnRmMVxz i9FjM3NiDhKnEBszfjXdRA MxZdrnehdtPIHuPMO7cbTy ZWTeTCsfBBKwPCyjXu2orL FaaMgiTyZmCCZag6bxtmTD JXpkLsFwV122MAJvOWpsh3 jgi1GaWNAhiOHte4N8DTYT gspfcQa7h9xpNyZbXpC7cC VcFIkoP2syucCvhJNoT7Gd xBZwfZv5eJkiX68jm1Z6He pfV3dhJUMiNWPuF2WoCD9d UVVkSkv2AJM1XFH1XCQeXM FxA0CyHB7hBTScvHYvEEt3 s8oojFbmBTKuIEI5m5ynVU dqagJ2RZ6geo3ouOq7j9xd czEgRGVmYXVsdCBQYXJhZ3 MblMtmSn5pfNl7cWqrFmeo FFZ7Zkh5AD9gnl53yyd2lE qcVNZcqjftOnW1LFrnJIAp kgytCPk0JIzpDSOdpHN4KK EjjEBhZ6EaJUVwEQ2meqt9 JPQ8RBnuLVUoKwQ3BNLupI YnLGNepHynGGuar199JTP3 QyQrFH3pI4Jes1S9tN8weF VhVGYhpWTgLnWjFEXuvr3z hOEnFBtkf0TbSEA1hxW8kK HwsKIhNSLkDI39Jgcxo8Ql VsbfGPA5JYAcdlNzj4Zcp4 gtMiInvqAhI7frX4CtGYQo GZMfESJbDsKqlcMjf6Mog3 MzlPOgcWm5l9thWARkBZEi aKfyi4mjOMP4CIRfW3F4rA Els3mcJRifPFWiaVO9yiT1 BWXvgPJwR7PfdN3uVTGvMY 7iihf3o5etTDH4FCztSWFj KuO5trO7ESIkfZHeBQKryI czVErhm940NXO9SrLyVKXk d0TnO3WknBilK08gfZueL2 0yQVJjhOyeeJ8vaDrjrT4f ZjBcZnMyNFxxbFxwbGFpbl xmMVxmczIwXGxhbmcxMDMz WHexP6oyMoJwQDWmkXvfMW zro7PlNTUyLOFoSssolfQs XHBhciBJIGhhdmUgcGVyc2 9uYWxseSByZXZpZXdlZCBh cOnui9ScB7fpIC0kI6UlsT ZiscLdaqSnNFztIDMgj9p1 fICwvHvov1WriCAzSG12ht GuVZFoUVP7PKDfc6kaWX98 huyyLjIxlE81eqIbjeSqPS Kfa3owP5veeGKvp4Lts6Or kzXlAUtft3CaHQ3luLDqya ffaZV9CJKncGSzdcAlvrD2 wDlbLRAmaB9qdC8izSvkzA 2iPrYjEiDiBIceUJ3hGXFg Y0iazYRvKSRwQSGyJ0dfIe EvpE6icNxeDtnxltA9PFHw cn19 Clinical Information (test code = 8809404684) Shivani Schuler is a 47 year old female with IDA1. Gastric polyp x 6 r/o adenoma2.Duodenal Bx, r/o Celiac disease 3. Gastric Bx r/o HPylori Gross Description (test code = 8943264851) v7rryTYkMFFgrOKUWUK2KH BdQY8gaHesjZf0vVisQICh ewR1qQUaEVimo6hyEAJ7j8 lxueTMOgjgTWFhBV3pCYls IEFuPY0aSdWkTNLoZtMeJG BhcGVydzEyMjQwXHBhcGVy iXL7DVSqFY7dzkebTJgiOW pmRWBkqhM5XOKqoHToN7Nd MXXgWB8ayrjgEKW0CDPHHf iaIj3bqQBeePtgMxExBjGn YXJzZXQwXGZuaWwgQXJpYW g7fA2XHntnHRZ7JVGEWmvj MgmlyBqdp5QkgVTsSOYhZC xcaWQgNTEwMDAgXFxkYiBP TzYuLwW8Ltl9LTK6BaA8LE z5IHCQZTMjSkxqYKZ5YzA9 ZXy2RNGmIB3oPNxcoAXfLM pzNsuaDInqY815JZvdTWVz F8YpS8FoBPkmHlGkWQfbZF OgZINwWDujVKPuF2FMCSDi LCV2SbVfOPZmPGk3ILjgK7 XKZXFrQGUnLuT0LLXkNlN0 AGp3HOSHMv5nQSqgNuHhYF t3ZTP3XAk1UbAeLKCoJdNl SWLiQFCfUMfkaNKpLU7whR ucPKNzLS9NQBRkBStuTWQk VcPuN2DQG2mDDT8vLZauhM JjaFxmczIyXHBhciANClxw GTOzWF0BOANcBIwiOYe7oh HkVFZiRbUyIQRrU66hc3FY h7XuMG4EIWw4vlUxxlfuoW 3xTDChstPlTRjGyMIgyH1t ztMEOBodXTIlK4YgofBoQD nbEIAzmk9fkJmsYFahOtRv bGVkIHdpdGggdGhlIHBhdG xyynFyO5O9xaWsSK6zUXMV KVXrcZ9lMZOpQUWcb4ZldR NwzRcrD1PstWQuLrCvr9w2 hVP7DSExpjVxZSQapABtRB Jhde9ySLtrQoFnS4M6OQEx BVEtc49ctSS0jrPgOvLxtO z4rZYwRHT6DL8anAcmdoLi a8r2nK2mXDLcx7C7EFEnk4 C3BLPoozZjaBIcwSMrXPCe BM2zakFxCE83NCPxBCgxBS soIBS0GNP2PYDnlQAqq3yl sgztYr2aHKhdTH1cMKpwOJ 16ZJXnPTtbZBQcK5QnJ5H7 VOkwORCoJOEiuTMzrE1szj XgxsMiqCp5SCLqDPH0wOOe aRxkURSeZcmyzJS0JCOjRi MhjvErn7DrlDt8wIDpIKdg NWVcoZ5kzB1sXGHqZDWing NWOyorGAQbFTtbh1IwVWfk cGljWHNhMzAgDQpcZXBpY0 8mm8LWk3Moh9tzgNqln9Nh oARlLW4bqIFdGP7Eo3tqTR KijQDoOXU3SMoer0vvHQyt OZS8DEXoRxEfUAEfOQ0FGf QyEIjfIBm0AGghMAq7LAe4 PW4HExXoROEyIqt1FnQ4Yc ZoQTk3JEtjLF8YRSH6JCUh AKCgMItzGPC4NPPzRCc3TW IgXFxzcyAzIFxcZmwgXFxu N25rjELbHMppXuBsRAobsQ fmWASmXHY3DE0UAWXzSbRg W9CHX6xTJF1tRxwmsxErDT WwjuBICbudVEMyTS0LEBIq NIwgFDp1gjTuUBJjLjPaKD RtI93fn4DGr8XaKA5SCPa2 giMmmibtaV9dVOBgjdCvb6 IzMFxlcGljWHNiMzAgDQpT rKFppW0pnkWCMYcmGVKpK5 VdtzSrORyvHGCqxk0tgKpy IGxhYmVsbGVkIHdpdGggdG nsOOIlzHbqhzBwM6P2cdHf ES3xSULCVGHasA2rFILnRY TjGILxDRLlfX6yJZI9u9Ix xxAdWCVVKVJczVzmKT75tQ BjZWxpYWMgZGlzZWFzZSBh ajBqxeUtc51jeeYjk8ZcJN 2iyRttIFwCOLveMsYbNX5m ZNQdljSuh4MjML1sTHYsnG CwJUMbagywhHYlHIs2vTHu XLJgVmNyzHdvi5QbYUPnKF fcXL80kfMnNM3lWRfjVL6q CUpqZV8yFYMxMAQgCOHpIa KvlJXwXkPweLEdExWkI00b KpXKqSKyi0XrZ5daMT9gqB GyMayedQQdGPJhvUfqm1Yo jRMfUAHri1ZowVXpGJlaNA 5aAGC8Uy3xgELdAQIzplF0 g9QnVYaaKXSuXwllZVDwLA vfk9ZcBRMluWDQp8QgWA8O XHBhciANClxzYTMwXGVwaW IOi8KwGNDHHuuloGauOyTp mUHmAxF0OYKloLIpJJE5PL 1maGqyVTLvAFp6JQpmKMHd P8TdB8IyFObvDwEvGXsdVI ZwVFIiIHptWOYsY4SXRDJb YFH4GeToGXVuIUi7ESjmF9 FEQKKuGSGcZpC8FPH2TpC6 EWw1OEDTDn0bKVvrEuLiJM ZuHcQ0OGy8ObAtGJRwXsBg DMWqPOAmKLboqYGvNE4qvT dyDUQeFVGkIQP0WQRplKOP l9SeECSkKXdjSaFvTRIBAN GHZY5GPnTQKWXlTbUhmTRz LC5JPIDmntMpDBrojGosqW 1juOCuN1ljNmNoEvpvnFln TmVzdERvYzEgDQpcbHRycG FyXGxpbjBccmluMFxzYjMw GWYaiPJUo8JlCRWEJvWfIL NpbWVuIEMgaXMgcmVjZWl2 ZQResI3pKq3rxGEkzS7qcS IfOXplQXMup9c1yRU3vFEo lPO8rLDbfEvwEwFrTO7tdT HxANVRWD51eRRsovRpCDLt lU0hFQXdXFUfABE8hqypFN ISFYZ1tAPzn2S1ZLctWXH6 rK9mgTegZaCcS6R0DTAgKU Nub64rqVC6jtBsGyUuMPBh gm9igD4yTFkdzqFrrLcvdz Svp4V4UHMzn7I9VYWlkqWt bJIifXRbNKJvKnG3IRNqLy R0FIJaAVHxwYDfMTBoCI3m VGhlIHNwZWNpbWVuIGlzIG GjpDChouVdTHFzty14B1pl SFGmwE0ir5ugZuOmUUUuPX WcfQWolGM0MFBguC2lqQ71 vdGlbrZNZE4qcBRgCB5AXW NiMFxlcGljWHNiMCANClxw HAVgSYgnf7XiQVzflXufIE VpImZwOUhAoMnhNBZXV5vo eQTbZWzgKNLMIBkAI4VBQZ 2IXRBeiEBUEOI9WC9fYQni KQLwE2BsE9LarlY2b1trvA aqq9ClwYWgTF9zlVFnUL1Y XHBhcmQgDQp9 Disclaimer (test code = [id number]) r2lecBXsZQWwi5usCVZatI FuZzEwMzNcZnRuYmpcdWMx VIiknwAhRPatn1WvP0ErSp AwMFxhbnNpXGRlZmxhbmcx EKLvETC7qcWjDLJhIDpgPB BbHHzyWv1lsZJofAtdTySu UVYlq0dhfpOHNAqvYiOmZ7 41YLIbLXkxl2xoi4YbTVOa oXHjr0L8XOFDrxobiXa0cX efL65zr6Y2ZghnU4xqUOJm TOWwE9KeDY0lQOLpRac4AJ K2QCX7MYMpYQDqN3XbUW1c ATBxaXKyMCm9b9arkMxyJE KqBWJ6b5llSHxgpqEqNW7m yk3cpDr3z5voijJoJUDsHQ QivXPWLBRxS8KkhTtgWl4l jIm3dGagWbsrDZU6Lyv7SQ 8itr96dxo1oLmqUESpptje FfN7OYqhWWQfvuddSEk1FC pdSKMjdIZ1WPKmpNIvZ9Re NCHlOZ8zbor8OON4VMwmZG BqIiS1ZGUbyZJyAZQpkWkp LQnxp820RZQ6SaLvIV1bL1 Cpn0Z3lH9mqUUgVWTvfKTl HnMyBWTqle8qcVOoTGmkh3 RiJUT2egD6eFYzcBGbQREx OM73Npqky2TtEdven7JyT7 2ixDX9LJeml6dvCG4zEoK2 bkMpZZsmv6pjnD0sWyU5MB qoHC2cSH1uYMPyaP4pghbv XHBnYnJkcmhlYWRccGdicm TkTa8wuYoxKYN2YZokW6pq cI3yYlK8ORpkK1repB4kWX q6CFvhwXM4VHQpmH2rWP0t xsvbu2irCYqwRGexAWTcol P5ruQ6XDSqxVAwP5FwqT9p TOTtML7mpyfoz7thMEM6HA vrBUBaLVQ3CiFeHROan3Ye mls9PkKrl0ImcXTuXYhkM7 5pw629JDKoctHlR1mfbVPd bapvgQOlvuvaSZsoajQ5EO SoijXzy4FuPWTcUPP9SWvb WFwxkIZePBJlnJtqq1lrC1 RscGFyXHBsYWluXGYxXGZz MjBcbGFuZzEwMzNcaGljaF yeGBwtNuZaXKPoMKdeJ9fy LtRfH2QhVOEmTdHjmFBdI1 ggVGhpcyByZXBvcnQgbWF5 IMxtP4s2CWSxlyYgmOf0vi YoPqHcRQRtMWI6XSdgoBSe QJDau5VkrdnwxHIhAv6yxD CdUJZvlQ5mIFRrOMLnQZyu WQ3prMt1JOUHfESfbCNtOr WHFJAeML14inAbPKPUnlbe o3B3QOawOQHmy0TbeFGdX9 wvv4AgBLGap11aSL6mx4T3 q3fiIWZ9ZX0gk4CcSZGtsE BccXQcTTKru3Jlvmqca9Di BJKtssKun7UfKTYkgcSliD HjSDJkwlInvo8aogQcFXZb MOZkW6RrjzycaCvezyAdHH Hdhq0xjnIlXMJ6JWNNAOTq EKEnp9EpfM3jtEEIMCI1vS Enra1spaKYtLKmQZKnmo93 VURkAQ1xD5hsTPXgRRWdvr TapNQga5RlNGVczCS9gCBx NW7DHnIHi26oEGKlFVOWie KpQCVeaYdpqXU5ttS7eX7a IChGREEpLlx+IFRoZSBGRE BvJW4yduPvj0PatrIizYxd BCZepBItf0QmdXTbh6DjqV yrc8EarLOfeBIlIQ1dMBPh clxwYXIgVVRNQiBMYWJvcm S4m2DmKOKlWYGjAQO7bYbk zvs7SIDmkO2mXAHvK7zwzh xiSUgjWVJiu7NfgA1mkBPD cIDvo3PqoENbwEYAmAAuTT 4fqmEvXIzQZTtYJYG0zkEs SXBoe8BuKLuoJ5fdW10hiN fqpEi7yAP5ZSK6wQ7xBnz+ IFxwYXJccGFyIEFwcHJvcH DuMWBypZennmIdN4FwneXy hU1xnHCoosOkYV7uBF1oD0 J1iCGlILYpdaCge2zsFMkr dmUgYmVlbiByZXZpZXdlZC Pqm3LwIUtgPNK9JFttuaJp bmNsdWRpbmcgSCZFLCBTcG VonJVhIQD6HQwvfjOsxtAf AX9vzI9tsXwjaN9wgAYkkA E7jesfEERiFAScuPadSCFf IY0xlXyazC3tHaOxRtZyQN cgJD3eHSJwP8cygSKePKAt DHSiS7ojNnSryQ4gpIypPS xjZjJcZnMyMFxwYXJccGFy XHBsYWluXGYxXGZzMjBcbG FuZzEwMzNcaGljaFxmMVxk QgRhHNQlTVpnU5zsSvAiJ4 OhGXCtYkZngRXmM2shJAxj VZD1EQSsXL8onXQmND51fY Qeg6ctAPrwcWvsev5pH79i aTNePTtftHvcXDBhn51pt5 SrQFOrrwJanm3eXHDzldD9 fO7qQGZnaEheSPKukKMhBM Haz9SzJHyjgTDzahZwVZya RPNdIQRymEBtwiO0oqWdfd TtlgOjBMZjlFctHASiq0Ep TEXnYGqcm7Qebb3gwZAmVP WybwXBiJatlATfrN9pY0Ur QMPcVULjmt3wJYPboN7pBG cbp5VbtskfTBSlNNMlTEJu xuHiek4eVXOtyRNVSE7WVY gfmMKwt0YdyuUqS9xPODY4 NUQwNjYwMjgxKSBleGNlcH VjAUQmso03WECwwO5enBre YPMvwI9fjX2htIjfcV2rWc OzShVbDHyiCF1dOKKaO1ez cHNxVJFpJIAiB1yvEiJkvL 9jaFxmMVxjZjJcZnMyMFxw YXJ9fQ== Embedded Images (test code = 8207165930) [facility]. METABOLIC PANEL ([id number])2022-11-03 17:25:32* Test Item Value Reference Range Interpretation Comme nts NA (test code = 4081997283) 139 mmol/L 135-145 K (test code = 8061196648) 4.2 mmol/L 3.5-5.0 CL (test code = 6133043883) 105 mmol/L 98-108 CO2 TOTAL (test code = 2659330533) 26 mmol/L 23-31 AGAP (test code = 4099376930) 8 2-16 BUN (test code = 9515311574) 9 mg/dL 7-23 GLUCOSE (test code = 3640616538) 93 mg/dL 70-110 CREATININE (test code = 9163677321) 0.60 mg/dL 0.50-1.04 TOTAL BILI (test code = 5212091451) 0.2 mg/dL 0.1-1.1 CALCIUM (test code = 0826725747) 9.2 mg/dL 8.6-10.6 T PROTEIN (test code = 8464001165) 7.0 g/dL 6.3-8.2 ALBUMIN (test code = 1858427558) 4.2 g/dL 3.5-5.0 ALK PHOS (test code = 9266975442) 118 U/L 34-122 ALTv (test code = 1742-6) 34 U/L 5-35 AST(SGOT) (test code = 7418853887) 34 U/L 13-40 eGFR (test code = 9222998640) 108.1 mL/min/1.73m2 ZAINAB (test code = ZAINAB) [...] or urine or abnormalities in imaging tests). [facility] ([id number])2022-11-03 17:25:32* Test Item Value Reference Range Interpretation Comme nts NA (test code = 3350204786) 139 mmol/L 135-145 K (test code = 9310837284) 4.2 mmol/L 3.5-5.0 CL (test code = 7006398528) 105 mmol/L 98-108 CO2 TOTAL (test code = 2676606109) 26 mmol/L 23-31 AGAP (test code = 3161179527) 8 2-16 BUN (test code = 4769296234) 9 mg/dL 7-23 GLUCOSE (test code = 8586440910) 93 mg/dL 70-110 CREATININE (test code = 5675840485) 0.60 mg/dL 0.50-1.04 TOTAL BILI (test code = 3308833913) 0.2 mg/dL 0.1-1.1 CALCIUM (test code = 0357010788) 9.2 mg/dL 8.6-10.6 T PROTEIN (test code = 0373653458) 7.0 g/dL 6.3-8.2 ALBUMIN (test code = 8224295860) 4.2 g/dL 3.5-5.0 ALK PHOS (test code = 2362444821) 118 U/L 34-122 ALTv (test code = 1742-6) 34 U/L 5-35 AST(SGOT) (test code = 5987667261) 34 U/L 13-40 eGFR (test code = 3321649781) 108.1 mL/min/1.73m2 ZAINAB (test code = ZAINAB) [...] or urine or abnormalities in imaging tests). [facility]. METABOLIC PANEL ([id number])2022-11-03 17:25:32* Test Item Value Reference Range Interpretation Comme nts NA (test code = 4329540774) 139 mmol/L 135-145 K (test code = 8605997585) 4.2 mmol/L 3.5-5.0 CL (test code = 5829766978) 105 mmol/L 98-108 CO2 TOTAL (test code = 1327493355) 26 mmol/L 23-31 AGAP (test code = 6307649215) 8 2-16 BUN (test code = 8923074067) 9 mg/dL 7-23 GLUCOSE (test code = 9547410690) 93 mg/dL 70-110 CREATININE (test code = 6455525757) 0.60 mg/dL 0.50-1.04 TOTAL BILI (test code = 6422231030) 0.2 mg/dL 0.1-1.1 CALCIUM (test code = 9973993341) 9.2 mg/dL 8.6-10.6 T PROTEIN (test code = 2865873047) 7.0 g/dL 6.3-8.2 ALBUMIN (test code = 2808831635) 4.2 g/dL 3.5-5.0 ALK PHOS (test code = 5364840369) 118 U/L 34-122 ALTv (test code = 1742-6) 34 U/L 5-35 AST(SGOT) (test code = 4329845917) 34 U/L 13-40 eGFR (test code = 3447342889) 108.1 mL/min/1.73m2 ZAINAB (test code = ZAINAB) [...] or urine or abnormalities in imaging tests). [facility]. METABOLIC PANEL ([id number])2022-11-03 17:25:32* Test Item Value Reference Range Interpretation Comme nts NA (test code = 9019148385) 139 mmol/L 135-145 K (test code = 8573759997) 4.2 mmol/L 3.5-5.0 CL (test code = 2584785215) 105 mmol/L 98-108 CO2 TOTAL (test code = 6960237274) 26 mmol/L 23-31 AGAP (test code = 9604564160) 8 2-16 BUN (test code = 1180334143) 9 mg/dL 7-23 GLUCOSE (test code = 3747963855) 93 mg/dL 70-110 CREATININE (test code = 7132873123) 0.60 mg/dL 0.50-1.04 TOTAL BILI (test code = 2710122562) 0.2 mg/dL 0.1-1.1 CALCIUM (test code = 5224724089) 9.2 mg/dL 8.6-10.6 T PROTEIN (test code = 8824691710) 7.0 g/dL 6.3-8.2 ALBUMIN (test code = 0694472689) 4.2 g/dL 3.5-5.0 ALK PHOS (test code = 9959964835) 118 U/L 34-122 ALTv (test code = 1742-6) 34 U/L 5-35 AST(SGOT) (test code = 2138503962) 34 U/L 13-40 eGFR (test code = 4496360365) 108.1 mL/min/1.73m2 ZAINAB (test code = ZAINAB) [...] or urine or abnormalities in imaging tests). [facility]. METABOLIC PANEL ([id number])2022-11-03 17:25:32* Test Item Value Reference Range Interpretation Comme nts NA (test code = 0431948122) 139 mmol/L 135-145 K (test code = 0977242965) 4.2 mmol/L 3.5-5.0 CL (test code = 0829459103) 105 mmol/L 98-108 CO2 TOTAL (test code = 9568385441) 26 mmol/L 23-31 AGAP (test code = 5325021605) 8 2-16 BUN (test code = 3649335352) 9 mg/dL 7-23 GLUCOSE (test code = 1252354578) 93 mg/dL 70-110 CREATININE (test code = 5250206845) 0.60 mg/dL 0.50-1.04 TOTAL BILI (test code = 1355782545) 0.2 mg/dL 0.1-1.1 CALCIUM (test code = 5643420756) 9.2 mg/dL 8.6-10.6 T PROTEIN (test code = 0909690724) 7.0 g/dL 6.3-8.2 ALBUMIN (test code = 9156103363) 4.2 g/dL 3.5-5.0 ALK PHOS (test code = 1708035754) 118 U/L 34-122 ALTv (test code = 1742-6) 34 U/L 5-35 AST(SGOT) (test code = 6722786454) 34 U/L 13-40 eGFR (test code = 7970871612) 108.1 mL/min/1.73m2 ZAINAB (test code = ZAINAB) [...] or urine or abnormalities in imaging tests). [facility]. METABOLIC PANEL ([id number])2022-11-03 17:25:32* Test Item Value Reference Range Interpretation Comme nts NA (test code = 9293044106) 139 mmol/L 135-145 K (test code = 2369699981) 4.2 mmol/L 3.5-5.0 CL (test code = 1154036252) 105 mmol/L 98-108 CO2 TOTAL (test code = 4894647168) 26 mmol/L 23-31 AGAP (test code = 1020658163) 8 2-16 BUN (test code = 4863106545) 9 mg/dL 7-23 GLUCOSE (test code = 4824279030) 93 mg/dL 70-110 CREATININE (test code = 9462761589) 0.60 mg/dL 0.50-1.04 TOTAL BILI (test code = 9216346391) 0.2 mg/dL 0.1-1.1 CALCIUM (test code = 6296374500) 9.2 mg/dL 8.6-10.6 T PROTEIN (test code = 9828120886) 7.0 g/dL 6.3-8.2 ALBUMIN (test code = 1049545339) 4.2 g/dL 3.5-5.0 ALK PHOS (test code = 3043738594) 118 U/L 34-122 ALTv (test code = 1742-6) 34 U/L 5-35 AST(SGOT) (test code = 6054328932) 34 U/L 13-40 eGFR (test code = 5424657694) 108.1 mL/min/1.73m2 ZAINAB (test code = ZAINAB) [...] or urine or abnormalities in imaging tests). [facility]. METABOLIC PANEL ([id number])2022-11-03 17:25:32* Test Item Value Reference Range Interpretation Comme nts NA (test code = 7369352177) 139 mmol/L 135-145 K (test code = 7991138263) 4.2 mmol/L 3.5-5.0 CL (test code = 0454646834) 105 mmol/L 98-108 CO2 TOTAL (test code = 8769856885) 26 mmol/L 23-31 AGAP (test code = 9683248891) 8 2-16 BUN (test code = 1778220610) 9 mg/dL 7-23 GLUCOSE (test code = 3456429670) 93 mg/dL 70-110 CREATININE (test code = 5221277140) 0.60 mg/dL 0.50-1.04 TOTAL BILI (test code = 7733066528) 0.2 mg/dL 0.1-1.1 CALCIUM (test code = 1900075117) 9.2 mg/dL 8.6-10.6 T PROTEIN (test code = 5915820237) 7.0 g/dL 6.3-8.2 ALBUMIN (test code = 2756256244) 4.2 g/dL 3.5-5.0 ALK PHOS (test code = 1806675942) 118 U/L 34-122 ALTv (test code = 1742-6) 34 U/L 5-35 AST(SGOT) (test code = 6869764444) 34 U/L 13-40 eGFR (test code = 9219269359) 108.1 mL/min/1.73m2 ZAINAB (test code = ZAINAB) [...] or urine or abnormalities in imaging tests). [facility]. METABOLIC PANEL ([id number])2022-11-03 17:25:32* Test Item Value Reference Range Interpretation Comme nts NA (test code = 6611790684) 139 mmol/L 135-145 K (test code = 9615584505) 4.2 mmol/L 3.5-5.0 CL (test code = 4759712797) 105 mmol/L 98-108 CO2 TOTAL (test code = 9554079131) 26 mmol/L 23-31 AGAP (test code = 5719262266) 8 2-16 BUN (test code = 0062226155) 9 mg/dL 7-23 GLUCOSE (test code = 7474267345) 93 mg/dL 70-110 CREATININE (test code = 6964298991) 0.60 mg/dL 0.50-1.04 TOTAL BILI (test code = 1990077082) 0.2 mg/dL 0.1-1.1 CALCIUM (test code = 2614167985) 9.2 mg/dL 8.6-10.6 T PROTEIN (test code = 2376867841) 7.0 g/dL 6.3-8.2 ALBUMIN (test code = 1708340099) 4.2 g/dL 3.5-5.0 ALK PHOS (test code = 4162096167) 118 U/L 34-122 ALTv (test code = 1742-6) 34 U/L 5-35 AST(SGOT) (test code = 0709940695) 34 U/L 13-40 eGFR (test code = 9941046407) 108.1 mL/min/1.73m2 ZAINAB (test code = ZAINAB) [...] or urine or abnormalities in imaging tests). [facility]. METABOLIC PANEL ([id number])2022-11-03 17:25:32* Test Item Value Reference Range Interpretation Comme nts NA (test code = 8050549210) 139 mmol/L 135-145 K (test code = 4410834918) 4.2 mmol/L 3.5-5.0 CL (test code = 0282315767) 105 mmol/L 98-108 CO2 TOTAL (test code = 5401435352) 26 mmol/L 23-31 AGAP (test code = 6261562156) 8 2-16 BUN (test code = 4531514502) 9 mg/dL 7-23 GLUCOSE (test code = 5843255900) 93 mg/dL 70-110 CREATININE (test code = 5953520056) 0.60 mg/dL 0.50-1.04 TOTAL BILI (test code = 6040759149) 0.2 mg/dL 0.1-1.1 CALCIUM (test code = 3213183912) 9.2 mg/dL 8.6-10.6 T PROTEIN (test code = 6563383845) 7.0 g/dL 6.3-8.2 ALBUMIN (test code = 0282391190) 4.2 g/dL 3.5-5.0 ALK PHOS (test code = 6311557532) 118 U/L 34-122 ALTv (test code = 1742-6) 34 U/L 5-35 AST(SGOT) (test code = 9233620029) 34 U/L 13-40 eGFR (test code = 76665-9) 108.1 mL/min/1.73m2 ZAINAB (test code = ZAINAB) [...] or urine or abnormalities in imaging tests). [facility]. METABOLIC PANEL ([id number])2022-11-03 17:25:32* Test Item Value Reference Range Interpretation Comme nts NA (test code = 7912714146) 139 mmol/L 135-145 K (test code = 8220342812) 4.2 mmol/L 3.5-5.0 CL (test code = 3317126523) 105 mmol/L 98-108 CO2 TOTAL (test code = 9951227653) 26 mmol/L 23-31 AGAP (test code = 6484521091) 8 2-16 BUN (test code = 7310460541) 9 mg/dL 7-23 GLUCOSE (test code = 0388726666) 93 mg/dL 70-110 CREATININE (test code = 9865931110) 0.60 mg/dL 0.50-1.04 TOTAL BILI (test code = 4023603271) 0.2 mg/dL 0.1-1.1 CALCIUM (test code = 4555311637) 9.2 mg/dL 8.6-10.6 T PROTEIN (test code = 1399722021) 7.0 g/dL 6.3-8.2 ALBUMIN (test code = 2978358901) 4.2 g/dL 3.5-5.0 ALK PHOS (test code = 6403999772) 118 U/L 34-122 ALTv (test code = 1742-6) 34 U/L 5-35 AST(SGOT) (test code = 2961999988) 34 U/L 13-40 eGFR (test code = 99340-8) 108.1 mL/min/1.73m2 ZAINAB (test code = ZAINAB) [...] or urine or abnormalities in imaging tests). [facility]. METABOLIC PANEL ([id number])2022-11-03 17:25:32* Test Item Value Reference Range Interpretation Comme nts NA (test code = 7405514237) 139 mmol/L 135-145 K (test code = 2451621580) 4.2 mmol/L 3.5-5.0 CL (test code = 3792474050) 105 mmol/L 98-108 CO2 TOTAL (test code = 1880722695) 26 mmol/L 23-31 AGAP (test code = 2192730756) 8 2-16 BUN (test code = 6652644140) 9 mg/dL 7-23 GLUCOSE (test code = 0909468794) 93 mg/dL 70-110 CREATININE (test code = 1201384765) 0.60 mg/dL 0.50-1.04 TOTAL BILI (test code = 9639789956) 0.2 mg/dL 0.1-1.1 CALCIUM (test code = 1485848050) 9.2 mg/dL 8.6-10.6 T PROTEIN (test code = 0086138408) 7.0 g/dL 6.3-8.2 ALBUMIN (test code = 7442735928) 4.2 g/dL 3.5-5.0 ALK PHOS (test code = 8953454310) 118 U/L 34-122 ALTv (test code = 1742-6) 34 U/L 5-35 AST(SGOT) (test code = 2914029064) 34 U/L 13-40 eGFR (test code = 35760-2) 108.1 mL/min/1.73m2 ZAINAB (test code = ZAINAB) [...] or urine or abnormalities in imaging tests). [facility]. METABOLIC PANEL ([id number])2022-11-03 17:25:32* Test Item Value Reference Range Interpretation Comme nts NA (test code = 5629536945) 139 mmol/L 135-145 K (test code = 8833513529) 4.2 mmol/L 3.5-5.0 CL (test code = 8621308022) 105 mmol/L 98-108 CO2 TOTAL (test code = 8337038338) 26 mmol/L 23-31 AGAP (test code = 1298396514) 8 2-16 BUN (test code = 7549713868) 9 mg/dL 7-23 GLUCOSE (test code = 7544560916) 93 mg/dL 70-110 CREATININE (test code = 8189521157) 0.60 mg/dL 0.50-1.04 TOTAL BILI (test code = 4828261031) 0.2 mg/dL 0.1-1.1 CALCIUM (test code = 9782649364) 9.2 mg/dL 8.6-10.6 T PROTEIN (test code = 8550065781) 7.0 g/dL 6.3-8.2 ALBUMIN (test code = 2729238415) 4.2 g/dL 3.5-5.0 ALK PHOS (test code = 4858649426) 118 U/L 34-122 ALTv (test code = 1742-6) 34 U/L 5-35 AST(SGOT) (test code = 8044617827) 34 U/L 13-40 eGFR (test code = 19820-5) 108.1 mL/min/1.73m2 ZAINAB (test code = ZAINAB) [...] or urine or abnormalities in imaging tests). [facility]. METABOLIC PANEL ([id number])2022-11-03 17:25:32* Test Item Value Reference Range Interpretation Comme nts NA (test code = 4066477747) 139 mmol/L 135-145 K (test code = 8002898790) 4.2 mmol/L 3.5-5.0 CL (test code = 7951697475) 105 mmol/L 98-108 CO2 TOTAL (test code = 6261748802) 26 mmol/L 23-31 AGAP (test code = 8966704080) 8 2-16 BUN (test code = 3502979083) 9 mg/dL 7-23 GLUCOSE (test code = 8793562421) 93 mg/dL 70-110 CREATININE (test code = 6610855001) 0.60 mg/dL 0.50-1.04 TOTAL BILI (test code = 8496409970) 0.2 mg/dL 0.1-1.1 CALCIUM (test code = 9206600322) 9.2 mg/dL 8.6-10.6 T PROTEIN (test code = 6161983896) 7.0 g/dL 6.3-8.2 ALBUMIN (test code = 2938295120) 4.2 g/dL 3.5-5.0 ALK PHOS (test code = 3686592315) 118 U/L 34-122 ALTv (test code = 1742-6) 34 U/L 5-35 AST(SGOT) (test code = 7487087733) 34 U/L 13-40 eGFR (test code = 87587-0) 108.1 mL/min/1.73m2 ZAINAB (test code = ZAINAB) [...] or urine or abnormalities in imaging tests). [facility]. METABOLIC PANEL ([id number])2022-11-03 17:25:32* Test Item Value Reference Range Interpretation Comme nts NA (test code = 6061097064) 139 mmol/L 135-145 K (test code = 5324562551) 4.2 mmol/L 3.5-5.0 CL (test code = 3820815561) 105 mmol/L 98-108 CO2 TOTAL (test code = 6697707300) 26 mmol/L 23-31 AGAP (test code = 0759756606) 8 2-16 BUN (test code = 0514600407) 9 mg/dL 7-23 GLUCOSE (test code = 1084691051) 93 mg/dL 70-110 CREATININE (test code = 1539727353) 0.60 mg/dL 0.50-1.04 TOTAL BILI (test code = 2281380183) 0.2 mg/dL 0.1-1.1 CALCIUM (test code = 5191507252) 9.2 mg/dL 8.6-10.6 T PROTEIN (test code = 7351478318) 7.0 g/dL 6.3-8.2 ALBUMIN (test code = 8755427488) 4.2 g/dL 3.5-5.0 ALK PHOS (test code = 1507637378) 118 U/L 34-122 ALTv (test code = 1742-6) 34 U/L 5-35 AST(SGOT) (test code = 0408072488) 34 U/L 13-40 eGFR (test code = 45269-3) 108.1 mL/min/1.73m2 ZAINAB (test code = ZAINAB) [...] or urine or abnormalities in imaging tests). [facility]. METABOLIC PANEL ([id number])2022-11-03 17:25:32* Test Item Value Reference Range Interpretation Comme nts NA (test code = 1696072415) 139 mmol/L 135-145 K (test code = 0035704182) 4.2 mmol/L 3.5-5.0 CL (test code = 1175285710) 105 mmol/L 98-108 CO2 TOTAL (test code = 8607282267) 26 mmol/L 23-31 AGAP (test code = 5120552412) 8 2-16 BUN (test code = 2638906992) 9 mg/dL 7-23 GLUCOSE (test code = 8347344146) 93 mg/dL 70-110 CREATININE (test code = 2814245022) 0.60 mg/dL 0.50-1.04 TOTAL BILI (test code = 8227752038) 0.2 mg/dL 0.1-1.1 CALCIUM (test code = 4953404757) 9.2 mg/dL 8.6-10.6 T PROTEIN (test code = 2853303168) 7.0 g/dL 6.3-8.2 ALBUMIN (test code = 6525692717) 4.2 g/dL 3.5-5.0 ALK PHOS (test code = 1981924117) 118 U/L 34-122 ALTv (test code = 1742-6) 34 U/L 5-35 AST(SGOT) (test code = 3919491501) 34 U/L 13-40 eGFR (test code = 16419-8) 108.1 mL/min/1.73m2 ZAINAB (test code = ZAINAB) [...] or urine or abnormalities in imaging tests). [facility]. METABOLIC PANEL ([id number])2022-11-03 17:25:32* Test Item Value Reference Range Interpretation Comme nts NA (test code = 2847578485) 139 mmol/L 135-145 K (test code = 3724167668) 4.2 mmol/L 3.5-5.0 CL (test code = 7579296619) 105 mmol/L 98-108 CO2 TOTAL (test code = 3931506677) 26 mmol/L 23-31 AGAP (test code = 3760521295) 8 2-16 BUN (test code = 3745166612) 9 mg/dL 7-23 GLUCOSE (test code = 2837564647) 93 mg/dL 70-110 CREATININE (test code = 9039917722) 0.60 mg/dL 0.50-1.04 TOTAL BILI (test code = 7538984507) 0.2 mg/dL 0.1-1.1 CALCIUM (test code = 9044638792) 9.2 mg/dL 8.6-10.6 T PROTEIN (test code = 6223973945) 7.0 g/dL 6.3-8.2 ALBUMIN (test code = 6694433511) 4.2 g/dL 3.5-5.0 ALK PHOS (test code = 8839760571) 118 U/L 34-122 ALTv (test code = 1742-6) 34 U/L 5-35 AST(SGOT) (test code = 7967079389) 34 U/L 13-40 eGFR (test code = 64433-6) 108.1 mL/min/1.73m2 ZAINAB (test code = ZAINAB) [...] or urine or abnormalities in imaging tests). [facility]. METABOLIC PANEL ([id number])2022-11-03 17:25:32* Test Item Value Reference Range Interpretation Comme nts NA (test code = 0280304253) 139 mmol/L 135-145 K (test code = 8287898298) 4.2 mmol/L 3.5-5.0 CL (test code = 6320747430) 105 mmol/L 98-108 CO2 TOTAL (test code = 0431933826) 26 mmol/L 23-31 AGAP (test code = 3686948860) 8 2-16 BUN (test code = 7460690632) 9 mg/dL 7-23 GLUCOSE (test code = 2340541018) 93 mg/dL 70-110 CREATININE (test code = 6793719819) 0.60 mg/dL 0.50-1.04 TOTAL BILI (test code = 0386711902) 0.2 mg/dL 0.1-1.1 CALCIUM (test code = 0613590207) 9.2 mg/dL 8.6-10.6 T PROTEIN (test code = 7625453667) 7.0 g/dL 6.3-8.2 ALBUMIN (test code = 9281702967) 4.2 g/dL 3.5-5.0 ALK PHOS (test code = 8013469173) 118 U/L 34-122 ALTv (test code = 1742-6) 34 U/L 5-35 AST(SGOT) (test code = 5937205166) 34 U/L 13-40 eGFR (test code = 67548-9) 108.1 mL/min/1.73m2 ZAINAB (test code = ZAINAB) [...] or urine or abnormalities in imaging tests). [facility]. METABOLIC PANEL ([id number])2022-11-03 17:25:32* Test Item Value Reference Range Interpretation Comme nts NA (test code = 6686306888) 139 mmol/L 135-145 K (test code = 0744860230) 4.2 mmol/L 3.5-5.0 CL (test code = 4675652506) 105 mmol/L 98-108 CO2 TOTAL (test code = 6078795127) 26 mmol/L 23-31 AGAP (test code = 2838259371) 8 2-16 BUN (test code = 5537227176) 9 mg/dL 7-23 GLUCOSE (test code = 5145375455) 93 mg/dL 70-110 CREATININE (test code = 3930220062) 0.60 mg/dL 0.50-1.04 TOTAL BILI (test code = 0121773622) 0.2 mg/dL 0.1-1.1 CALCIUM (test code = 8080166179) 9.2 mg/dL 8.6-10.6 T PROTEIN (test code = 2858521006) 7.0 g/dL 6.3-8.2 ALBUMIN (test code = 7160474022) 4.2 g/dL 3.5-5.0 ALK PHOS (test code = 3480858972) 118 U/L 34-122 ALTv (test code = 1742-6) 34 U/L 5-35 AST(SGOT) (test code = 1978444596) 34 U/L 13-40 eGFR (test code = 55576-3) 108.1 mL/min/1.73m2 ZAINAB (test code = ZAINAB) [...] in imaging tests). [facility] WITH [id number] 17:18:52* Test Item Value Reference Range Interpretation Comme nts WBC (test code = 6690-2) 7.41 See_Comment [[employer]] The system which generated this result transmitted reference range: 4.30 - 11.10 10*3/?L. The reference range was not used to interpret this result as normal/abnormal. RBC (test code = 789-8) 4.20 See_Comment [[employer]] The system which generated this result transmitted [...] g/dL 31.6-35.1 L RDW-SD (test code = 14583-9) 46.2 fL 39.0-49.9 RDW-CV (test code = 788-0) 17.9 % 12.0-15.5 H PLT (test code = 777-3) 304 See_Comment [[employer]] The system which generated this result transmitted reference range: 166 - 358 10*3/?L. The reference range was not used to interpret this result as normal/abnormal. MPV (test code = 72273-3) 11.0 fL 9.5-12.9 NRBC/100 WBC (test code = 4860181544) 0.0 See_Comment [Automated me ssage] The system which generated this result transmitted reference range: 0.0 - 10.0 /100 WBCs. The reference range was not used to interpret this result as normal/abnormal. NRBC x10^3 (test code = 4879965824) See_Comment [Automated messa ge] The system which generated this result transmitted reference range: 10*3/?L. The reference range was not used to interpret this result as normal/abnormal. GRAN MAT (NEUT) % (test code = 770-8) 68.6 % IMM GRAN % (test code = 2380615876) 0.70 % LYMPH % (test code = 736-9) 19.8 % MONO % (test code = 5905-5) 5.3 % EOS % (test code = 713-8) 5.1 % BASO % (test code = 706-2) 0.5 % GRAN MAT x10^3(ANC) (test code = 8466286977) 5.08 10*3/uL 1.88-7.09 IMM GRAN x10^3 (test code = 9783843899) 0.05 10*3/uL 0.00-0.06 LYMPH x10^3 (test code = 731-0) 1.47 10*3/uL 1.32-3.29 MONO x10^3 (test code = 742-7) 0.39 10*3/uL 0.33-0.92 EOS x10^3 (test code = 711-2) 0.38 10*3/uL 0.03-0.39 BASO x10^3 (test code = 704-7) 0.04 10*3/uL 0.01-0.07 Lab Interpretation (test code = 22540-0) Abnormal [facility] WITH [id number] 17:18:52* Test Item Value Reference Range Interpretation Comme nts WBC (test code = 6690-2) 7.41 See_Comment [Automated messa ge] The system which generated this result transmitted reference range: 4.30 - 11.10 10*3/?L. The reference range was not used to interpret this result as normal/abnormal. RBC (test code = 789-8) 4.20 See_Comment [[employer]] The system which generated this result [...] g/dL 31.6-35.1 L RDW-SD (test code = 14411-7) 46.2 fL 39.0-49.9 RDW-CV (test code = 788-0) 17.9 % 12.0-15.5 H PLT (test code = 777-3) 304 See_Comment [Automated messa ge] The system which generated this result transmitted reference range: 166 - 358 10*3/?L. The reference range was not used to interpret this result as normal/abnormal. MPV (test code = 37308-0) 11.0 fL 9.5-12.9 NRBC/100 WBC (test code = 3932727944) 0.0 See_Comment [Automated [employer]] The system which generated this result transmitted reference range: 0.0 - 10.0 /100 WBCs. The reference range was not used to interpret this result as normal/abnormal. NRBC x10^3 (test code = 2956600768) See_Comment [[employer]] The system which generated this result transmitted reference range: 10*3/?L. The reference range was not used to interpret this result as normal/abnormal. GRAN MAT (NEUT) % (test code = 770-8) 68.6 % IMM GRAN % (test code = 4499531995) 0.70 % LYMPH % (test code = 736-9) 19.8 % MONO % (test code = 5905-5) 5.3 % EOS % (test code = 713-8) 5.1 % BASO % (test code = 706-2) 0.5 % GRAN MAT x10^3(ANC) (test code = 4588257089) 5.08 10*3/uL 1.88-7.09 IMM GRAN x10^3 (test code = 5640448319) 0.05 10*3/uL 0.00-0.06 LYMPH x10^3 (test code = 731-0) 1.47 10*3/uL 1.32-3.29 MONO x10^3 (test code = 742-7) 0.39 10*3/uL 0.33-0.92 EOS x10^3 (test code = 711-2) 0.38 10*3/uL 0.03-0.39 BASO x10^3 (test code = 704-7) 0.04 10*3/uL 0.01-0.07 Lab Interpretation (test code = 50486-0) Abnormal [facility] WITH [id number] 17:18:52* Test Item Value Reference Range Interpretation Comme nts WBC (test code = 6690-2) 7.41 See_Comment [[employer]] The system which generated this result transmitted reference range: 4.30 - 11.10 10*3/?L. The reference range was not used to interpret this result as normal/abnormal. RBC (test code = 789-8) 4.20 See_Comment [[employer]] The system which generated this result [...] g/dL 31.6-35.1 L RDW-SD (test code = 36374-9) 46.2 fL 39.0-49.9 RDW-CV (test code = 788-0) 17.9 % 12.0-15.5 H PLT (test code = 777-3) 304 See_Comment [Automated messa ge] The system which generated this result transmitted reference range: 166 - 358 10*3/?L. The reference range was not used to interpret this result as normal/abnormal. MPV (test code = 47665-0) 11.0 fL 9.5-12.9 NRBC/100 WBC (test code = 5729731415) 0.0 See_Comment [[employer]] The system which generated this result transmitted reference range: 0.0 - 10.0 /100 WBCs. The reference range was not used to interpret this result as normal/abnormal. NRBC x10^3 (test code = 7112312344) See_Comment [Automated messa ge] The system which generated this result transmitted reference range: 10*3/?L. The reference range was not used to interpret this result as normal/abnormal. GRAN MAT (NEUT) % (test code = 770-8) 68.6 % IMM GRAN % (test code = 2857359113) 0.70 % LYMPH % (test code = 736-9) 19.8 % MONO % (test code = 5905-5) 5.3 % EOS % (test code = 713-8) 5.1 % BASO % (test code = 706-2) 0.5 % GRAN MAT x10^3(ANC) (test code = 3964221742) 5.08 10*3/uL 1.88-7.09 IMM GRAN x10^3 (test code = 1210862907) 0.05 10*3/uL 0.00-0.06 LYMPH x10^3 (test code = 731-0) 1.47 10*3/uL 1.32-3.29 MONO x10^3 (test code = 742-7) 0.39 10*3/uL 0.33-0.92 EOS x10^3 (test code = 711-2) 0.38 10*3/uL 0.03-0.39 BASO x10^3 (test code = 704-7) 0.04 10*3/uL 0.01-0.07 Lab Interpretation (test code = 09715-2) Abnormal [facility] WITH [id number] 17:18:52* Test Item Value Reference Range Interpretation [...] g/dL 31.6-35.1 L RDW-SD (test code = 39754-2) 46.2 fL 39.0-49.9 RDW-CV (test code = 788-0) 17.9 % 12.0-15.5 H PLT (test code = 777-3) 304 See_Comment [Automated messa ge] The system which generated this result transmitted reference range: 166 - 358 10*3/?L. The reference range was not used to interpret this result as normal/abnormal. MPV (test code = 29493-0) 11.0 fL 9.5-12.9 NRBC/100 WBC (test code = 6981874284) 0.0 See_Comment [[employer]] The system which generated this result transmitted reference range: 0.0 - 10.0 /100 WBCs. The reference range was not used to interpret this result as normal/abnormal. NRBC x10^3 (test code = 4754680663) See_Comment [Automated messa ge] The system which generated this result transmitted reference range: 10*3/?L. The reference range was not used to interpret this result as normal/abnormal. GRAN MAT (NEUT) % (test code = 770-8) 68.6 % IMM GRAN % (test code = 0933375157) 0.70 % LYMPH % (test code = 736-9) 19.8 % MONO % (test code = 5905-5) 5.3 % EOS % (test code = 713-8) 5.1 % BASO % (test code = 706-2) 0.5 % GRAN MAT x10^3(ANC) (test code = 5519840682) 5.08 10*3/uL 1.88-7.09 IMM GRAN x10^3 (test code = 3824981142) 0.05 10*3/uL 0.00-0.06 LYMPH x10^3 (test code = 731-0) 1.47 10*3/uL 1.32-3.29 MONO x10^3 (test code = 742-7) 0.39 10*3/uL 0.33-0.92 EOS x10^3 (test code = 711-2) 0.38 10*3/uL 0.03-0.39 BASO x10^3 (test code = 704-7) 0.04 10*3/uL 0.01-0.07 Lab Interpretation (test code = 17786-0) Abnormal [facility] WITH [id number] 17:18:52* Test Item Value Reference Range Interpretation Comme nts WBC (test code = 6690-2) 7.41 See_Comment [[employer]] The system which generated this result transmitted reference range: 4.30 - 11.10 10*3/?L. The reference range was not used to interpret this result as normal/abnormal. RBC (test code = 789-8) 4.20 See_Comment [[employer]] The system which generated this result [...] g/dL 31.6-35.1 L RDW-SD (test code = 46049-6) 46.2 fL 39.0-49.9 RDW-CV (test code = 788-0) 17.9 % 12.0-15.5 H PLT (test code = 777-3) 304 See_Comment [Automated messa ge] The system which generated this result transmitted reference range: 166 - 358 10*3/?L. The reference range was not used to interpret this result as normal/abnormal. MPV (test code = 33036-2) 11.0 fL 9.5-12.9 NRBC/100 WBC (test code = 5743097770) 0.0 See_Comment [[employer]] The system which generated this result transmitted reference range: 0.0 - 10.0 /100 WBCs. The reference range was not used to interpret this result as normal/abnormal. NRBC x10^3 (test code = 8280650649) See_Comment [Automated messa ge] The system which generated this result transmitted reference range: 10*3/?L. The reference range was not used to interpret this result as normal/abnormal. GRAN MAT (NEUT) % (test code = 770-8) 68.6 % IMM GRAN % (test code = 3653600423) 0.70 % LYMPH % (test code = 736-9) 19.8 % MONO % (test code = 5905-5) 5.3 % EOS % (test code = 713-8) 5.1 % BASO % (test code = 706-2) 0.5 % GRAN MAT x10^3(ANC) (test code = 1226007798) 5.08 10*3/uL 1.88-7.09 IMM GRAN x10^3 (test code = 1272867463) 0.05 10*3/uL 0.00-0.06 LYMPH x10^3 (test code = 731-0) 1.47 10*3/uL 1.32-3.29 MONO x10^3 (test code = 742-7) 0.39 10*3/uL 0.33-0.92 EOS x10^3 (test code = 711-2) 0.38 10*3/uL 0.03-0.39 BASO x10^3 (test code = 704-7) 0.04 10*3/uL 0.01-0.07 Lab Interpretation (test code = 98163-9) Abnormal [facility] WITH [id number] 17:18:52* Test Item Value Reference Range Interpretation Comme nts WBC (test code = 6690-2) 7.41 See_Comment [Automated messa ge] The system which generated this result transmitted reference range: 4.30 - 11.10 10*3/?L. The reference range was not used to interpret this result as normal/abnormal. RBC (test code = 789-8) 4.20 See_Comment [[employer]] The system which generated this result [...] g/dL 31.6-35.1 L RDW-SD (test code = 84395-4) 46.2 fL 39.0-49.9 RDW-CV (test code = 788-0) 17.9 % 12.0-15.5 H PLT (test code = 777-3) 304 See_Comment [Automated messa ge] The system which generated this result transmitted reference range: 166 - 358 10*3/?L. The reference range was not used to interpret this result as normal/abnormal. MPV (test code = 88932-5) 11.0 fL 9.5-12.9 NRBC/100 WBC (test code = 5488938620) 0.0 See_Comment [[employer]] The system which generated this result transmitted reference range: 0.0 - 10.0 /100 WBCs. The reference range was not used to interpret this result as normal/abnormal. NRBC x10^3 (test code = 3207836658) See_Comment [Automated messa ge] The system which generated this result transmitted reference range: 10*3/?L. The reference range was not used to interpret this result as normal/abnormal. GRAN MAT (NEUT) % (test code = 770-8) 68.6 % IMM GRAN % (test code = 6588246013) 0.70 % LYMPH % (test code = 736-9) 19.8 % MONO % (test code = 5905-5) 5.3 % EOS % (test code = 713-8) 5.1 % BASO % (test code = 706-2) 0.5 % GRAN MAT x10^3(ANC) (test code = 5339401786) 5.08 10*3/uL 1.88-7.09 IMM GRAN x10^3 (test code = 1424536882) 0.05 10*3/uL 0.00-0.06 LYMPH x10^3 (test code = 731-0) 1.47 10*3/uL 1.32-3.29 MONO x10^3 (test code = 742-7) 0.39 10*3/uL 0.33-0.92 EOS x10^3 (test code = 711-2) 0.38 10*3/uL 0.03-0.39 BASO x10^3 (test code = 704-7) 0.04 10*3/uL 0.01-0.07 Lab Interpretation (test code = 22571-9) Abnormal [facility] WITH [id number] 17:18:52* Test Item Value Reference Range Interpretation [...] g/dL 31.6-35.1 L RDW-SD (test code = 03856-3) 46.2 fL 39.0-49.9 RDW-CV (test code = 788-0) 17.9 % 12.0-15.5 H PLT (test code = 777-3) 304 See_Comment [Automated messa ge] The system which generated this result transmitted reference range: 166 - 358 10*3/?L. The reference range was not used to interpret this result as normal/abnormal. MPV (test code = 00138-4) 11.0 fL 9.5-12.9 NRBC/100 WBC (test code = 2350946825) 0.0 See_Comment [[employer]] The system which generated this result transmitted reference range: 0.0 - 10.0 /100 WBCs. The reference range was not used to interpret this result as normal/abnormal. NRBC x10^3 (test code = 7093824129) See_Comment [Automated messa ge] The system which generated this result transmitted reference range: 10*3/?L. The reference range was not used to interpret this result as normal/abnormal. GRAN MAT (NEUT) % (test code = 770-8) 68.6 % IMM GRAN % (test code = 5167141139) 0.70 % LYMPH % (test code = 736-9) 19.8 % MONO % (test code = 5905-5) 5.3 % EOS % (test code = 713-8) 5.1 % BASO % (test code = 706-2) 0.5 % GRAN MAT x10^3(ANC) (test code = 1111472694) 5.08 10*3/uL 1.88-7.09 IMM GRAN x10^3 (test code = 7987720566) 0.05 10*3/uL 0.00-0.06 LYMPH x10^3 (test code = 731-0) 1.47 10*3/uL 1.32-3.29 MONO x10^3 (test code = 742-7) 0.39 10*3/uL 0.33-0.92 EOS x10^3 (test code = 711-2) 0.38 10*3/uL 0.03-0.39 BASO x10^3 (test code = 704-7) 0.04 10*3/uL 0.01-0.07 Lab Interpretation (test code = 24702-9) Abnormal [facility] WITH [id number] 17:18:52* Test Item Value Reference Range Interpretation Comme nts WBC (test code = 6690-2) 7.41 See_Comment [[employer]] The system which generated this result transmitted reference range: 4.30 - 11.10 10*3/?L. The reference range was not used to interpret this result as normal/abnormal. RBC (test code = 789-8) 4.20 See_Comment [[employer]] The system which generated this result transmitted [...] g/dL 31.6-35.1 L RDW-SD (test code = 84798-9) 46.2 fL 39.0-49.9 RDW-CV (test code = 788-0) 17.9 % 12.0-15.5 H PLT (test code = 777-3) 304 See_Comment [Automated messa ge] The system which generated this result transmitted reference range: 166 - 358 10*3/?L. The reference range was not used to interpret this result as normal/abnormal. MPV (test code = 38144-5) 11.0 fL 9.5-12.9 NRBC/100 WBC (test code = 2722267657) 0.0 See_Comment [Automated [employer]age] The system which generated this result transmitted reference range: 0.0 - 10.0 /100 WBCs. The reference range was not used to interpret this result as normal/abnormal. NRBC x10^3 (test code = 8159600408) See_Comment [Automated messa ge] The system which generated this result transmitted reference range: 10*3/?L. The reference range was not used to interpret this result as normal/abnormal. GRAN MAT (NEUT) % (test code = 770-8) 68.6 % IMM GRAN % (test code = 6200016920) 0.70 % LYMPH % (test code = 736-9) 19.8 % MONO % (test code = 5905-5) 5.3 % EOS % (test code = 713-8) 5.1 % BASO % (test code = 706-2) 0.5 % GRAN MAT x10^3(ANC) (test code = 8327225518) 5.08 10*3/uL 1.88-7.09 IMM GRAN x10^3 (test code = 3120778504) 0.05 10*3/uL 0.00-0.06 LYMPH x10^3 (test code = 731-0) 1.47 10*3/uL 1.32-3.29 MONO x10^3 (test code = 742-7) 0.39 10*3/uL 0.33-0.92 EOS x10^3 (test code = 711-2) 0.38 10*3/uL 0.03-0.39 BASO x10^3 (test code = 704-7) 0.04 10*3/uL 0.01-0.07 Lab Interpretation (test code = 57755-6) Abnormal [facility] WITH [id number] 17:18:52* Test Item Value Reference Range Interpretation [...] g/dL 31.6-35.1 L RDW-SD (test code = 79599-9) 46.2 fL 39.0-49.9 RDW-CV (test code = 788-0) 17.9 % 12.0-15.5 H PLT (test code = 777-3) 304 See_Comment [Automated messa ge] The system which generated this result transmitted reference range: 166 - 358 10*3/?L. The reference range was not used to interpret this result as normal/abnormal. MPV (test code = 95506-2) 11.0 fL 9.5-12.9 NRBC/100 WBC (test code = 0298429396) 0.0 See_Comment [[employer]] The system which generated this result transmitted reference range: 0.0 - 10.0 /100 WBCs. The reference range was not used to interpret this result as normal/abnormal. NRBC x10^3 (test code = 2571015705) See_Comment [Automated messa ge] The system which generated this result transmitted reference range: 10*3/?L. The reference range was not used to interpret this result as normal/abnormal. GRAN MAT (NEUT) % (test code = 770-8) 68.6 % IMM GRAN % (test code = 2904668396) 0.70 % LYMPH % (test code = 736-9) 19.8 % MONO % (test code = 5905-5) 5.3 % EOS % (test code = 713-8) 5.1 % BASO % (test code = 706-2) 0.5 % GRAN MAT x10^3(ANC) (test code = 7874495500) 5.08 10*3/uL 1.88-7.09 IMM GRAN x10^3 (test code = 3837711085) 0.05 10*3/uL 0.00-0.06 LYMPH x10^3 (test code = 731-0) 1.47 10*3/uL 1.32-3.29 MONO x10^3 (test code = 742-7) 0.39 10*3/uL 0.33-0.92 EOS x10^3 (test code = 711-2) 0.38 10*3/uL 0.03-0.39 BASO x10^3 (test code = 704-7) 0.04 10*3/uL 0.01-0.07 Lab Interpretation (test code = 44567-9) Abnormal [facility] WITH [id number] 17:18:52* Test Item Value Reference Range Interpretation Comme nts WBC (test code = 6690-2) 7.41 See_Comment [[employer]] The system which generated this result transmitted reference range: 4.30 - 11.10 10*3/?L. The reference range was not used to interpret this result as normal/abnormal. RBC (test code = 789-8) 4.20 See_Comment [[employer]] The system which generated this result [...] g/dL 31.6-35.1 L RDW-SD (test code = 93678-0) 46.2 fL 39.0-49.9 RDW-CV (test code = 788-0) 17.9 % 12.0-15.5 H PLT (test code = 777-3) 304 See_Comment [[employer]] The system which generated this result transmitted reference range: 166 - 358 10*3/?L. The reference range was not used to interpret this result as normal/abnormal. MPV (test code = 87020-0) 11.0 fL 9.5-12.9 NRBC/100 WBC (test code = 2784375444) 0.0 See_Comment [[employer]] The system which generated this result transmitted reference range: 0.0 - 10.0 /100 WBCs. The reference range was not used to interpret this result as normal/abnormal. NRBC x10^3 (test code = 2505073772) See_Comment [[employer]] The system which generated this result transmitted reference range: 10*3/?L. The reference range was not used to interpret this result as normal/abnormal. GRAN MAT (NEUT) % (test code = 770-8) 68.6 % IMM GRAN % (test code = 5505346084) 0.70 % LYMPH % (test code = 736-9) 19.8 % MONO % (test code = 5905-5) 5.3 % EOS % (test code = 713-8) 5.1 % BASO % (test code = 706-2) 0.5 % GRAN MAT x10^3(ANC) (test code = 9831689949) 5.08 10*3/uL 1.88-7.09 IMM GRAN x10^3 (test code = 9863364753) 0.05 10*3/uL 0.00-0.06 LYMPH x10^3 (test code = 731-0) 1.47 10*3/uL 1.32-3.29 MONO x10^3 (test code = 742-7) 0.39 10*3/uL 0.33-0.92 EOS x10^3 (test code = 711-2) 0.38 10*3/uL 0.03-0.39 BASO x10^3 (test code = 704-7) 0.04 10*3/uL 0.01-0.07 Lab Interpretation (test code = 78539-7) Abnormal [facility] WITH [id number] 17:18:52* Test Item Value Reference Range Interpretation [...] g/dL 31.6-35.1 L RDW-SD (test code = 74914-2) 46.2 fL 39.0-49.9 RDW-CV (test code = 788-0) 17.9 % 12.0-15.5 H PLT (test code = 777-3) 304 See_Comment [Automated messa ge] The system which generated this result transmitted reference range: 166 - 358 10*3/?L. The reference range was not used to interpret this result as normal/abnormal. MPV (test code = 90745-7) 11.0 fL 9.5-12.9 NRBC/100 WBC (test code = 2825648475) 0.0 See_Comment [Automated [employer]] The system which generated this result transmitted reference range: 0.0 - 10.0 /100 WBCs. The reference range was not used to interpret this result as normal/abnormal. NRBC x10^3 (test code = 2360232371) See_Comment [Automated messa ge] The system which generated this result transmitted reference range: 10*3/?L. The reference range was not used to interpret this result as normal/abnormal. GRAN MAT (NEUT) % (test code = 770-8) 68.6 % IMM GRAN % (test code = 5201291336) 0.70 % LYMPH % (test code = 736-9) 19.8 % MONO % (test code = 5905-5) 5.3 % EOS % (test code = 713-8) 5.1 % BASO % (test code = 706-2) 0.5 % GRAN MAT x10^3(ANC) (test code = 8087577981) 5.08 10*3/uL 1.88-7.09 IMM GRAN x10^3 (test code = 5760773051) 0.05 10*3/uL 0.00-0.06 LYMPH x10^3 (test code = 731-0) 1.47 10*3/uL 1.32-3.29 MONO x10^3 (test code = 742-7) 0.39 10*3/uL 0.33-0.92 EOS x10^3 (test code = 711-2) 0.38 10*3/uL 0.03-0.39 BASO x10^3 (test code = 704-7) 0.04 10*3/uL 0.01-0.07 Lab Interpretation (test code = 08393-6) Abnormal [facility] WITH [id number] 17:18:52* Test Item Value Reference Range Interpretation [...] g/dL 31.6-35.1 L RDW-SD (test code = 79859-4) 46.2 fL 39.0-49.9 RDW-CV (test code = 788-0) 17.9 % 12.0-15.5 H PLT (test code = 777-3) 304 See_Comment [Automated messa ge] The system which generated this result transmitted reference range: 166 - 358 10*3/?L. The reference range was not used to interpret this result as normal/abnormal. MPV (test code = 07811-0) 11.0 fL 9.5-12.9 NRBC/100 WBC (test code = [id number]) 0.0 See_Comment [Automated me ssage] The system which generated this result transmitted reference range: 0.0 - 10.0 /100 WBCs. The reference range was not used to interpret this result as normal/abnormal. NRBC x10^3 (test code = 4984437908) See_Comment [Automated messa ge] The system which generated this result transmitted reference range: 10*3/?L. The reference range was not used to interpret this result as normal/abnormal. GRAN MAT (NEUT) % (test code = 770-8) 68.6 % IMM GRAN % (test code = 0481037136) 0.70 % LYMPH % (test code = 736-9) 19.8 % MONO % (test code = 5905-5) 5.3 % EOS % (test code = 713-8) 5.1 % BASO % (test code = 706-2) 0.5 % GRAN MAT x10^3(ANC) (test code = 9033040433) 5.08 10*3/uL 1.88-7.09 IMM GRAN x10^3 (test code = 1725276880) 0.05 10*3/uL 0.00-0.06 LYMPH x10^3 (test code = 731-0) 1.47 10*3/uL 1.32-3.29 MONO x10^3 (test code = 742-7) 0.39 10*3/uL 0.33-0.92 EOS x10^3 (test code = 711-2) 0.38 10*3/uL 0.03-0.39 BASO x10^3 (test code = 704-7) 0.04 10*3/uL 0.01-0.07 Lab Interpretation (test code = 81907-4) Abnormal [facility] WITH [id number] 17:18:52* Test Item Value Reference Range Interpretation Comme nts WBC (test code = 6690-2) 7.41 See_Comment [[employer]] The system which generated this result [...] g/dL 31.6-35.1 L RDW-SD (test code = 79477-4) 46.2 fL 39.0-49.9 RDW-CV (test code = 788-0) 17.9 % 12.0-15.5 H PLT (test code = 777-3) 304 See_Comment [Automated messa ge] The system which generated this result transmitted reference range: 166 - 358 10*3/?L. The reference range was not used to interpret this result as normal/abnormal. MPV (test code = 96153-5) 11.0 fL 9.5-12.9 NRBC/100 WBC (test code = 2197197425) 0.0 See_Comment [Automated me ssage] The system which generated this result transmitted reference range: 0.0 - 10.0 /100 WBCs. The reference range was not used to interpret this result as normal/abnormal. NRBC x10^3 (test code = 5063643420) See_Comment [Automated messa ge] The system which generated this result transmitted reference range: 10*3/?L. The reference range was not used to interpret this result as normal/abnormal. GRAN MAT (NEUT) % (test code = 770-8) 68.6 % IMM GRAN % (test code = 1328316094) 0.70 % LYMPH % (test code = 736-9) 19.8 % MONO % (test code = 5905-5) 5.3 % EOS % (test code = 713-8) 5.1 % BASO % (test code = 706-2) 0.5 % GRAN MAT x10^3(ANC) (test code = 2797621139) 5.08 10*3/uL 1.88-7.09 IMM GRAN x10^3 (test code = 6563691555) 0.05 10*3/uL 0.00-0.06 LYMPH x10^3 (test code = 731-0) 1.47 10*3/uL 1.32-3.29 MONO x10^3 (test code = 742-7) 0.39 10*3/uL 0.33-0.92 EOS x10^3 (test code = 711-2) 0.38 10*3/uL 0.03-0.39 BASO x10^3 (test code = 704-7) 0.04 10*3/uL 0.01-0.07 Lab Interpretation (test code = 11309-7) Abnormal [facility] WITH [id number] 17:18:52* Test Item Value Reference Range Interpretation Comme nts WBC (test code = 6690-2) 7.41 See_Comment [Automated messa ge] The system which generated this result transmitted reference range: 4.30 - 11.10 10*3/?L. The reference range was not used to interpret this result as normal/abnormal. RBC (test code = 789-8) 4.20 See_Comment [[employer] ge] The system which generated this result [...] g/dL 31.6-35.1 L RDW-SD (test code = 47148-7) 46.2 fL 39.0-49.9 RDW-CV (test code = 788-0) 17.9 % 12.0-15.5 H PLT (test code = 777-3) 304 See_Comment [Autom[employer] ge] The system which generated this result transmitted reference range: 166 - 358 10*3/?L. The reference range was not used to interpret this result as normal/abnormal. MPV (test code = 41792-8) 11.0 fL 9.5-12.9 NRBC/100 WBC (test code = 9115341817) 0.0 See_Comment [Automated [employer] ssage] The system which generated this result transmitted reference range: 0.0 - 10.0 /100 WBCs. The reference range was not used to interpret this result as normal/abnormal. NRBC x10^3 (test code = 8736229964) See_Comment [[employer] ge] The system which generated this result transmitted reference range: 10*3/?L. The reference range was not used to interpret this result as normal/abnormal. GRAN MAT (NEUT) % (test code = 770-8) 68.6 % IMM GRAN % (test code = 3009435906) 0.70 % LYMPH % (test code = 736-9) 19.8 % MONO % (test code = 5905-5) 5.3 % EOS % (test code = 713-8) 5.1 % BASO % (test code = 706-2) 0.5 % GRAN MAT x10^3(ANC) (test code = 9786976583) 5.08 10*3/uL 1.88-7.09 IMM GRAN x10^3 (test code = 7399981901) 0.05 10*3/uL 0.00-0.06 LYMPH x10^3 (test code = 731-0) 1.47 10*3/uL 1.32-3.29 MONO x10^3 (test code = 742-7) 0.39 10*3/uL 0.33-0.92 EOS x10^3 (test code = 711-2) 0.38 10*3/uL 0.03-0.39 BASO x10^3 (test code = 704-7) 0.04 10*3/uL 0.01-0.07 Lab Interpretation (test code = 73565-9) Abnormal [facility] WITH [id number] 17:18:52* Test Item Value Reference Range Interpretation Comme nts WBC (test code = 6690-2) 7.41 See_Comment [[employer]] The system which generated this result transmitted reference range: 4.30 - 11.10 10*3/?L. The reference range was not used to interpret this result as normal/abnormal. RBC (test code = 789-8) 4.20 See_Comment [[employer]] The system which generated this result transmitted [...] g/dL 31.6-35.1 L RDW-SD (test code = 82703-5) 46.2 fL 39.0-49.9 RDW-CV (test code = 788-0) 17.9 % 12.0-15.5 H PLT (test code = 777-3) 304 See_Comment [Automated messa ge] The system which generated this result transmitted reference range: 166 - 358 10*3/?L. The reference range was not used to interpret this result as normal/abnormal. MPV (test code = 07977-6) 11.0 fL 9.5-12.9 NRBC/100 WBC (test code = 7249004142) 0.0 See_Comment [Automated [employer] ssage] The system which generated this result transmitted reference range: 0.0 - 10.0 /100 WBCs. The reference range was not used to interpret this result as normal/abnormal. NRBC x10^3 (test code = 3263520454) See_Comment [Automated messa ge] The system which generated this result transmitted reference range: 10*3/?L. The reference range was not used to interpret this result as normal/abnormal. GRAN MAT (NEUT) % (test code = 770-8) 68.6 % IMM GRAN % (test code = 5784887523) 0.70 % LYMPH % (test code = 736-9) 19.8 % MONO % (test code = 5905-5) 5.3 % EOS % (test code = 713-8) 5.1 % BASO % (test code = 706-2) 0.5 % GRAN MAT x10^3(ANC) (test code = 6539003454) 5.08 10*3/uL 1.88-7.09 IMM GRAN x10^3 (test code = 7745981056) 0.05 10*3/uL 0.00-0.06 LYMPH x10^3 (test code = 731-0) 1.47 10*3/uL 1.32-3.29 MONO x10^3 (test code = 742-7) 0.39 10*3/uL 0.33-0.92 EOS x10^3 (test code = 711-2) 0.38 10*3/uL 0.03-0.39 BASO x10^3 (test code = 704-7) 0.04 10*3/uL 0.01-0.07 Lab Interpretation (test code = 42769-0) Abnormal [facility] WITH [id number] 17:18:52* Test Item Value Reference Range Interpretation [...] g/dL 31.6-35.1 L RDW-SD (test code = 51544-8) 46.2 fL 39.0-49.9 RDW-CV (test code = 788-0) 17.9 % 12.0-15.5 H PLT (test code = 777-3) 304 See_Comment [Automated messa ge] The system which generated this result transmitted reference range: 166 - 358 10*3/?L. The reference range was not used to interpret this result as normal/abnormal. MPV (test code = 10015-1) 11.0 fL 9.5-12.9 NRBC/100 WBC (test code = 2451464826) 0.0 See_Comment [Automated [employer] ssage] The system which generated this result transmitted reference range: 0.0 - 10.0 /100 WBCs. The reference range was not used to interpret this result as normal/abnormal. NRBC x10^3 (test code = 0382757202) See_Comment [Automated messa ge] The system which generated this result transmitted reference range: 10*3/?L. The reference range was not used to interpret this result as normal/abnormal. GRAN MAT (NEUT) % (test code = 770-8) 68.6 % IMM GRAN % (test code = 2783119859) 0.70 % LYMPH % (test code = 736-9) 19.8 % MONO % (test code = 5905-5) 5.3 % EOS % (test code = 713-8) 5.1 % BASO % (test code = 706-2) 0.5 % GRAN MAT x10^3(ANC) (test code = 7038225846) 5.08 10*3/uL 1.88-7.09 IMM GRAN x10^3 (test code = 6646621084) 0.05 10*3/uL 0.00-0.06 LYMPH x10^3 (test code = 731-0) 1.47 10*3/uL 1.32-3.29 MONO x10^3 (test code = 742-7) 0.39 10*3/uL 0.33-0.92 EOS x10^3 (test code = 711-2) 0.38 10*3/uL 0.03-0.39 BASO x10^3 (test code = 704-7) 0.04 10*3/uL 0.01-0.07 Lab Interpretation (test code = 11856-1) Abnormal [facility] WITH [id number] 17:18:52* Test Item Value Reference Range Interpretation [...] g/dL 31.6-35.1 L RDW-SD (test code = 22896-5) 46.2 fL 39.0-49.9 RDW-CV (test code = 788-0) 17.9 % 12.0-15.5 H PLT (test code = 777-3) 304 See_Comment [[employer]] The system which generated this result transmitted reference range: 166 - 358 10*3/?L. The reference range was not used to interpret this result as normal/abnormal. MPV (test code = 75606-5) 11.0 fL 9.5-12.9 NRBC/100 WBC (test code = 1207063748) 0.0 See_Comment [Automated [employer] ssage] The system which generated this result transmitted reference range: 0.0 - 10.0 /100 WBCs. The reference range was not used to interpret this result as normal/abnormal. NRBC x10^3 (test code = 4427648897) See_Comment [[employer]] The system which generated this result transmitted reference range: 10*3/?L. The reference range was not used to interpret this result as normal/abnormal. GRAN MAT (NEUT) % (test code = 770-8) 68.6 % IMM GRAN % (test code = 5673060159) 0.70 % LYMPH % (test code = 736-9) 19.8 % MONO % (test code = 5905-5) 5.3 % EOS % (test code = 713-8) 5.1 % BASO % (test code = 706-2) 0.5 % GRAN MAT x10^3(ANC) (test code = 6789455143) 5.08 10*3/uL 1.88-7.09 IMM GRAN x10^3 (test code = 5611447889) 0.05 10*3/uL 0.00-0.06 LYMPH x10^3 (test code = 731-0) 1.47 10*3/uL 1.32-3.29 MONO x10^3 (test code = 742-7) 0.39 10*3/uL 0.33-0.92 EOS x10^3 (test code = 711-2) 0.38 10*3/uL 0.03-0.39 BASO x10^3 (test code = 704-7) 0.04 10*3/uL 0.01-0.07 Lab Interpretation (test code = 63238-0) Abnormal [facility] WITH [id number] 17:18:52* Test Item Value Reference Range Interpretation Comme nts WBC (test code = 6690-2) 7.41 See_Comment [[employer] ge] The system which generated this result transmitted reference range: 4.30 - 11.10 10*3/?L. The reference range was not used to interpret this result as normal/abnormal. RBC (test code = 789-8) 4.20 See_Comment [[employer] ge] The system which generated this result [...] g/dL 31.6-35.1 L RDW-SD (test code = 48960-9) 46.2 fL 39.0-49.9 RDW-CV (test code = 788-0) 17.9 % 12.0-15.5 H PLT (test code = 777-3) 304 See_Comment [Automated messa ge] The system which generated this result transmitted reference range: 166 - 358 10*3/?L. The reference range was not used to interpret this result as normal/abnormal. MPV (test code = 54046-8) 11.0 fL 9.5-12.9 NRBC/100 WBC (test code = 2016752301) 0.0 See_Comment [Automated me ssage] The system which generated this result transmitted reference range: 0.0 - 10.0 /100 WBCs. The reference range was not used to interpret this result as normal/abnormal. NRBC x10^3 (test code = 6289904805) See_Comment [Automated messa ge] The system which generated this result transmitted reference range: 10*3/?L. The reference range was not used to interpret this result as normal/abnormal. GRAN MAT (NEUT) % (test code = 770-8) 68.6 % IMM GRAN % (test code = 2318255001) 0.70 % LYMPH % (test code = 736-9) 19.8 % MONO % (test code = 5905-5) 5.3 % EOS % (test code = 713-8) 5.1 % BASO % (test code = 706-2) 0.5 % GRAN MAT x10^3(ANC) (test code = 5759625134) 5.08 10*3/uL 1.88-7.09 IMM GRAN x10^3 (test code = 2093644320) 0.05 10*3/uL 0.00-0.06 LYMPH x10^3 (test code = 731-0) 1.47 10*3/uL 1.32-3.29 MONO x10^3 (test code = 742-7) 0.39 10*3/uL 0.33-0.92 EOS x10^3 (test code = 711-2) 0.38 10*3/uL 0.03-0.39 BASO x10^3 (test code = 704-7) 0.04 10*3/uL 0.01-0.07 Lab Interpretation (test code = 31990-7) Abnormal [facility] [id number] 16:24:00* Test Item Value Reference Range Interpretation Comme nts POCT PREG (test code = 1605) Negative On board controls acceptable with C Line (test code = 3574) Yes POCT PREG LOT # (test code = 3575) [id number] POCT PREG TEST DATE ( test code = 3576) 04-11-2024 Lab Interpretation (test cod e = 64992-6) [facility] [id number] 16:24:00* Test Item Value Reference Range Interpretation Comme nts POCT PREG (test code = 1605) Negative On board controls acceptable with C Line (test code = 3574) Yes POCT PREG LOT # (test code = 3575) 205167 POCT PREG TEST DATE ( test code = 3576) 04-11-2024 Lab Interpretation (test cod e = 05014-4) [facility] [id number] 16:24:00* Test Item Value Reference Range Interpretation Comme nts POCT PREG (test code = 1605) Negative On board controls acceptable with C Line (test code = 3574) Yes POCT PREG LOT # (test code = 3575) 751957 POCT PREG TEST DATE ( test code = 3576) 04-11-2024 Lab Interpretation (test cod e = 64981-7) [facility] [id number] 16:24:00* Test Item Value Reference Range Interpretation Comme nts POCT PREG (test code = 1605) Negative On board controls acceptable with C Line (test code = 3574) Yes POCT PREG LOT # (test code = 3575) 151351 POCT PREG TEST DATE ( test code = 3576) 04-11-2024 Lab Interpretation (test cod e = 96047-9) [facility] [id number] 16:24:00* Test Item Value Reference Range Interpretation Comme nts POCT PREG (test code = 1605) Negative On board controls acceptable with C Line (test code = 3574) Yes POCT PREG LOT # (test code = 3575) [id number] POCT PREG TEST DATE ( test code = 3576) 04-11-2024 Lab Interpretation (test cod e = 26995-2) [facility] [id number] 16:24:00* Test Item Value Reference Range Interpretation Comme nts POCT PREG (test code = 1605) Negative On board controls acceptable with C Line (test code = 3574) Yes POCT PREG LOT # (test code = 3575) [id number] POCT PREG TEST DATE ( test code = 3576) 04-11-2024 Lab Interpretation (test cod e = 00623-3) [facility] [id number] 16:24:00* Test Item Value Reference Range Interpretation Comme nts POCT PREG (test code = 1605) Negative On board controls acceptable with C Line (test code = 3574) Yes POCT PREG LOT # (test code = 3575) 041803 POCT PREG TEST DATE ( test code = 3576) 04-11-2024 Lab Interpretation (test cod e = 95968-3) [facility] [id number] 16:24:00* Test Item Value Reference Range Interpretation Comme nts POCT PREG (test code = 1605) Negative On board controls acceptable with C Line (test code = 3574) Yes POCT PREG LOT # (test code = 3575) 099715 POCT PREG TEST DATE ( test code = 3576) 04-11-2024 Lab Interpretation (test cod e = 25271-2) [facility] [id number] 16:24:00* Test Item Value Reference Range Interpretation Comme nts POCT PREG (test code = 1605) Negative On board controls acceptable with C Line (test code = 3574) Yes POCT PREG LOT # (test code = 3575) 477606 POCT PREG TEST DATE ( test code = 3576) 04-11-2024 Lab Interpretation (test cod e = 37708-0) [facility] [id number] 16:24:00* Test Item Value Reference Range Interpretation Comme nts POCT PREG (test code = 1605) Negative On board controls acceptable with C Line (test code = 3574) Yes POCT PREG LOT # (test code = 3575) 578070 POCT PREG TEST DATE ( test code = 3576) 04-11-2024 Lab Interpretation (test cod e = 92002-7) [facility] [id number] 16:24:00* Test Item Value Reference Range Interpretation Comme nts POCT PREG (test code = 1605) Negative On board controls acceptable with C Line (test code = 3574) Yes POCT PREG LOT # (test code = 3575) 293913 POCT PREG TEST DATE ( test code = 3576) 04-11-2024 Lab Interpretation (test cod e = 31949-3) [facility] [id number] 16:24:00* Test Item Value Reference Range Interpretation Comme nts POCT PREG (test code = 1605) Negative On board controls acceptable with C Line (test code = 3574) Yes POCT PREG LOT # (test code = 3575) 752556 POCT PREG TEST DATE ( test code = 3576) 04-11-2024 Lab Interpretation (test cod e = 09284-4) [facility] [id number] 16:24:00* Test Item Value Reference Range Interpretation Comme nts POCT PREG (test code = 1605) Negative On board controls acceptable with C Line (test code = 3574) Yes POCT PREG LOT # (test code = 3575) 141053 POCT PREG TEST DATE ( test code = 3576) 04-11-2024 Lab Interpretation (test cod e = 21413-6) [facility] [id number] 16:24:00* Test Item Value Reference Range Interpretation Comme nts POCT PREG (test code = 1605) Negative On board controls acceptable with C Line (test code = 3574) Yes POCT PREG LOT # (test code = 3575) 052401 POCT PREG TEST DATE ( test code = 3576) 04-11-2024 Lab Interpretation (test cod e = 94848-4) [facility] [id number] 16:24:00* Test Item Value Reference Range Interpretation Comme nts POCT PREG (test code = 1605) Negative On board controls acceptable with C Line (test code = 3574) Yes POCT PREG LOT # (test code = 3575) 156594 POCT PREG TEST DATE ( test code = 3576) 04-11-2024 Lab Interpretation (test cod e = 33923-7) [facility] [id number] 16:24:00* Test Item Value Reference Range Interpretation Comme nts POCT PREG (test code = 1605) Negative On board controls acceptable with C Line (test code = 3574) Yes POCT PREG LOT # (test code = 3575) 781414 POCT PREG TEST DATE ( test code = 3576) 04-11-2024 Lab Interpretation (test cod e = 52420-7) Normal [facility] [id number] 16:24:00* Test Item Value Reference Range Interpretation Comme nts POCT PREG (test code = 1605) Negative On board controls acceptable with C Line (test code = 3574) Yes POCT PREG LOT # (test code = 3575) 593103 POCT PREG TEST DATE ( test code = 3576) 04-11-2024 Lab Interpretation (test cod e = 87663-6) [facility] [id number] 16:24:00* Test Item Value Reference Range Interpretation Comme nts POCT PREG (test code = 1605) Negative On board controls acceptable with C Line (test code = 3574) Yes POCT PREG LOT # (test code = 3575) 553820 POCT PREG TEST DATE ( test code = 3576) 04-11-2024 Lab Interpretation (test cod e = 31567-9) Normal [facility] ONLY CELIAC SCREEN [id number] 19:09:14 * Test Item Value Reference Range Interpretation Comme nts Tissue Transglutaminase (tTG) Ab, IgA Interpretation (test code = 20032-6) Negative Negative Deamidated Gliadin Peptide (DGP) Ab, IgA Interpretation (test code = 40580-1) Negative Negative Tissue Transglutaminase (tTG) Ab, IgA (test code = 8061275175) <=7.0 Deamidated Gliadin Peptide (DGP) Ab, IgA (test code = 5467674831) 0.4 U/mL <=7.0 ZAINAB (test code = ZAINAB) < 7 U/mL ? Negative7 - 10 U/mL ?Equivocal> 10 U/mL ?Positive In case of equivocal results, we recommend to retest the patient after 8 -12 weeks. Lab Interpretation (test code = 74055-4) Normal [facility] ONLY CELIAC SCREEN [id number] 19:09:14 * Test Item Value Reference Range Interpretation Comme nts Tissue Transglutaminase (tTG) Ab, IgA Interpretation (test code = 59481-0) Negative Negative Deamidated Gliadin Peptide (DGP) Ab, IgA Interpretation (test code = 54018-3) Negative Negative Tissue Transglutaminase (tTG) Ab, IgA (test code = 3397352171) <=7.0 Deamidated Gliadin Peptide (DGP) Ab, IgA (test code = 5159404041) 0.4 U/mL <=7.0 ZAINAB (test code = ZAINAB) < 7 U/mL ? Negative7 - 10 U/mL ?Equivocal> 10 U/mL ?Positive In case of equivocal results, we recommend to retest the patient after 8 -12 weeks. Lab Interpretation (test code = 27570-6) Normal [facility] ONLY CELIAC SCREEN [id number] 19:09:14 * Test Item Value Reference Range Interpretation Comme nts Tissue Transglutaminase (tTG) Ab, IgA Interpretation (test code = 97678-2) Negative Negative Deamidated Gliadin Peptide (DGP) Ab, IgA Interpretation (test code = 91390-1) Negative Negative Tissue Transglutaminase (tTG) Ab, IgA (test code = 4098748723) <=7.0 Deamidated Gliadin Peptide (DGP) Ab, IgA (test code = 8185778642) 0.4 U/mL <=7.0 ZAINAB (test code = ZAINAB) < 7 U/mL ? Negative7 - 10 U/mL ?Equivocal> 10 U/mL ?Positive In case of equivocal results, we recommend to retest the patient after 8 -12 weeks. Lab Interpretation (test code = 53445-5) Normal [facility] ONLY CELIAC SCREEN [id number] 19:09:14 * Test Item Value Reference Range Interpretation Comme nts Tissue Transglutaminase (tTG) Ab, IgA Interpretation (test code = 22023-8) Negative Negative Deamidated Gliadin Peptide (DGP) Ab, IgA Interpretation (test code = 84599-7) Negative Negative Tissue Transglutaminase (tTG) Ab, IgA (test code = 1603714482) <=7.0 Deamidated Gliadin Peptide (DGP) Ab, IgA (test code = 0446661405) 0.4 U/mL <=7.0 ZAINAB (test code = ZAINAB) < 7 U/mL ? Negative7 - 10 U/mL ?Equivocal> 10 U/mL ?Positive In case of equivocal results, we recommend to retest the patient after 8 -12 weeks. Lab Interpretation (test code = 89413-2) Normal [facility] ONLY CELIAC SCREEN [id number] 19:09:14 * Test Item Value Reference Range Interpretation Comme nts Tissue Transglutaminase (tTG) Ab, IgA Interpretation (test code = 81703-7) Negative Negative Deamidated Gliadin Peptide (DGP) Ab, IgA Interpretation (test code = 39507-5) Negative Negative Tissue Transglutaminase (tTG) Ab, IgA (test code = 3919286976) <=7.0 Deamidated Gliadin Peptide (DGP) Ab, IgA (test code = 3573118848) 0.4 U/mL <=7.0 ZAINAB (test code = ZAINAB) < 7 U/mL ? Negative7 - 10 U/mL ?Equivocal> 10 U/mL ?Positive In case of equivocal results, we recommend to retest the patient after 8 -12 weeks. Lab Interpretation (test code = 26239-3) Normal [facility] ONLY CELIAC SCREEN [id number] 19:09:14 * Test Item Value Reference Range Interpretation Comme nts Tissue Transglutaminase (tTG) Ab, IgA Interpretation (test code = 41855-3) Negative Negative Deamidated Gliadin Peptide (DGP) Ab, IgA Interpretation (test code = 63368-1) Negative Negative Tissue Transglutaminase (tTG) Ab, IgA (test code = 2091625599) <=7.0 Deamidated Gliadin Peptide (DGP) Ab, IgA (test code = 0899247629) 0.4 U/mL <=7.0 ZAINAB (test code = ZAINAB) < 7 U/mL ? Negative7 - 10 U/mL ?Equivocal> 10 U/mL ?Positive In case of equivocal results, we recommend to retest the patient after 8 -12 weeks. Lab Interpretation (test code = 53227-4) Normal [facility] ONLY CELIAC SCREEN [id number] 19:09:14 * Test Item Value Reference Range Interpretation Comme nts Tissue Transglutaminase (tTG) Ab, IgA Interpretation (test code = 56837-5) Negative Negative Deamidated Gliadin Peptide (DGP) Ab, IgA Interpretation (test code = 92421-5) Negative Negative Tissue Transglutaminase (tTG) Ab, IgA (test code = 7183160097) <=7.0 Deamidated Gliadin Peptide (DGP) Ab, IgA (test code = 5722078234) 0.4 U/mL <=7.0 ZAINAB (test code = ZAINAB) < 7 U/mL ? Negative7 - 10 U/mL ?Equivocal> 10 U/mL ?Positive In case of equivocal results, we recommend to retest the patient after 8 -12 weeks. Lab Interpretation (test code = 44730-4) Normal [facility] ONLY CELIAC SCREEN [id number] 19:09:14 * Test Item Value Reference Range Interpretation Comme nts Tissue Transglutaminase (tTG) Ab, IgA Interpretation (test code = 77238-8) Negative Negative Deamidated Gliadin Peptide (DGP) Ab, IgA Interpretation (test code = 56477-4) Negative Negative Tissue Transglutaminase (tTG) Ab, IgA (test code = 5383589577) <=7.0 Deamidated Gliadin Peptide (DGP) Ab, IgA (test code = 0277936558) 0.4 U/mL <=7.0 ZAINAB (test code = ZAINAB) < 7 U/mL ? Negative7 - 10 U/mL ?Equivocal> 10 U/mL ?Positive In case of equivocal results, we recommend to retest the patient after 8 -12 weeks. Lab Interpretation (test code = 85527-8) Normal [facility] ONLY CELIAC SCREEN [id number] 19:09:14 * Test Item Value Reference Range Interpretation Comme nts Tissue Transglutaminase (tTG) Ab, IgA Interpretation (test code = 72542-6) Negative Negative Deamidated Gliadin Peptide (DGP) Ab, IgA Interpretation (test code = 24547-0) Negative Negative Tissue Transglutaminase (tTG) Ab, IgA (test code = 6607775864) <=7.0 Deamidated Gliadin Peptide (DGP) Ab, IgA (test code = 8307191180) 0.4 U/mL <=7.0 ZAINAB (test code = ZAINAB) < 7 U/mL ? Negative7 - 10 U/mL ?Equivocal> 10 U/mL ?Positive In case of equivocal results, we recommend to retest the patient after 8 -12 weeks. Lab Interpretation (test code = 15830-8) Normal [facility] ONLY CELIAC SCREEN [id number] 19:09:14 * Test Item Value Reference Range Interpretation Comme nts Tissue Transglutaminase (tTG) Ab, IgA Interpretation (test code = 64174-5) Negative Negative Deamidated Gliadin Peptide (DGP) Ab, IgA Interpretation (test code = 48012-0) Negative Negative Tissue Transglutaminase (tTG) Ab, IgA (test code = 0379481665) <=7.0 Deamidated Gliadin Peptide (DGP) Ab, IgA (test code = 3534087200) 0.4 U/mL <=7.0 ZAINAB (test code = ZAINAB) < 7 U/mL ? Negative7 - 10 U/mL ?Equivocal> 10 U/mL ?Positive In case of equivocal results, we recommend to retest the patient after 8 -12 weeks. Lab Interpretation (test code = 51434-7) Normal [facility] ONLY CELIAC SCREEN [id number] 19:09:14 * Test Item Value Reference Range Interpretation Comme nts Tissue Transglutaminase (tTG) Ab, IgA Interpretation (test code = 17802-3) Negative Negative Deamidated Gliadin Peptide (DGP) Ab, IgA Interpretation (test code = 34221-0) Negative Negative Tissue Transglutaminase (tTG) Ab, IgA (test code = 3900960613) <=7.0 Deamidated Gliadin Peptide (DGP) Ab, IgA (test code = 3326876093) 0.4 U/mL <=7.0 ZAINAB (test code = ZAINAB) < 7 U/mL ? Negative7 - 10 U/mL ?Equivocal> 10 U/mL ?Positive In case of equivocal results, we recommend to retest the patient after 8 -12 weeks. Lab Interpretation (test code = 33579-1) Normal [facility] ONLY CELIAC SCREEN [id number] 19:09:14 * Test Item Value Reference Range Interpretation Comme nts Tissue Transglutaminase (tTG) Ab, IgA Interpretation (test code = 51403-2) Negative Negative Deamidated Gliadin Peptide (DGP) Ab, IgA Interpretation (test code = 88760-5) Negative Negative Tissue Transglutaminase (tTG) Ab, IgA (test code = 2675044279) <=7.0 Deamidated Gliadin Peptide (DGP) Ab, IgA (test code = 2695466826) 0.4 U/mL <=7.0 ZAINAB (test code = ZAINAB) < 7 U/mL ? Negative7 - 10 U/mL ?Equivocal> 10 U/mL ?Positive In case of equivocal results, we recommend to retest the patient after 8 -12 weeks. Lab Interpretation (test code = 41824-2) Normal [facility] [id number] 20:24:44* Test Item Value Reference Range Interpretation Comme nts Total IgA (test code = 6488183640) 78.3 U/mL 70-312 Lab Interpretation (test cod e = 31872-6) Normal [facility] [id number] 20:24:44* Test Item Value Reference Range Interpretation Comme nts Total IgA (test code = 4894294954) 78.3 U/mL 70-312 Lab Interpretation (test cod e = 21656-4) Normal [facility] [id number] 20:24:44* Test Item Value Reference Range Interpretation Comme nts Total IgA (test code = 0823982172) 78.3 U/mL 70-312 Lab Interpretation (test cod e = 72613-1) Normal [facility]2023-09-07 20:24:44* Test Item Value Reference Range Interpretation Comme nts Total IgA (test code = 6177634449) 78.3 U/mL 70-312 Lab Interpretation (test cod e = 96645-7) Normal [facility]2023-09-07 20:24:44* Test Item Value Reference Range Interpretation Comme nts Total IgA (test code = 6562218062) 78.3 U/mL 70-312 Lab Interpretation (test cod e = 38959-9) Normal [facility]2023-09-07 20:24:44* Test Item Value Reference Range Interpretation Comme nts Total IgA (test code = 1960829559) 78.3 U/mL 70-312 Lab Interpretation (test cod e = 94675-0) Normal [facility]2023-09-07 20:24:44* Test Item Value Reference Range Interpretation Comme nts Total IgA (test code = 6263995914) 78.3 U/mL 70-312 Lab Interpretation (test cod e = 71475-3) Normal [facility]2023-09-07 20:24:44* Test Item Value Reference Range Interpretation Comme nts Total IgA (test code = 3886418102) 78.3 U/mL 70-312 Lab Interpretation (test cod e = 01250-7) Normal [facility]2023-09-07 20:24:44* Test Item Value Reference Range Interpretation Comme nts Total IgA (test code = 6364414573) 78.3 U/mL 70-312 Lab Interpretation (test cod e = 56638-4) Normal [facility]2023-09-07 20:24:44* Test Item Value Reference Range Interpretation Comme nts Total IgA (test code = 5804801590) 78.3 U/mL 70-312 Lab Interpretation (test cod e = 52644-0) Normal [facility]2023-09-07 20:24:44* Test Item Value Reference Range Interpretation Comme nts Total IgA (test code = 1357382821) 78.3 U/mL 70-312 Lab Interpretation (test cod e = 50195-0) Normal [facility] [id number] 20:24:44* Test Item Value Reference Range Interpretation Comme nts Total IgA (test code = 5250905658) 78.3 U/mL 70-312 Lab Interpretation (test cod e = 77062-7) Normal [facility] [id number] 17:30:19* Test Item Value Reference Range Interpretation Comme nts FERRITIN (test code = 9687585552) 4.8 ng/mL 6.0-137.0 L ZAINAB (test code = ZAINAB) Biotin has been reported to cause a negative bias, interpret results relative to patient's use of biotin. Lab Interpretation (test code = 51013-1) Abnormal [facility] [id number] 17:30:19* Test Item Value Reference Range Interpretation Comme nts FERRITIN (test code = 4929715455) 4.8 ng/mL 6.0-137.0 L AZINAB (test code = ZAINAB) Biotin has been reported to cause a negative bias, interpret results relative to patient's use of biotin. Lab Interpretation (test code = 85501-9) Abnormal [facility] [id number] 17:30:19* Test Item Value Reference Range Interpretation Comme nts FERRITIN (test code = 4029881457) 4.8 ng/mL 6.0-137.0 L ZAINAB (test code = ZAINAB) Biotin has been reported to cause a negative bias, interpret results relative to patient's use of biotin. Lab Interpretation (test code = 39256-4) Abnormal [facility] [id number] 17:30:19* Test Item Value Reference Range Interpretation Comme nts FERRITIN (test code = 2845293637) 4.8 ng/mL 6.0-137.0 L AZINAB (test code = ZAINAB) Biotin has been reported to cause a negative bias, interpret results relative to patient's use of biotin. Lab Interpretation (test code = 72386-8) Abnormal [facility] [id number] 17:30:19* Test Item Value Reference Range Interpretation Comme nts FERRITIN (test code = 7040692061) 4.8 ng/mL 6.0-137.0 L ZAINAB (test code = ZAINAB) Biotin has been reported to cause a negative bias, interpret results relative to patient's use of biotin. Lab Interpretation (test code = 72547-0) Abnormal [facility] [id number] 17:30:19* Test Item Value Reference Range Interpretation Comme nts FERRITIN (test code = 7979575198) 4.8 ng/mL 6.0-137.0 L ZAINAB (test code = ZAINAB) Biotin has been reported to cause a negative bias, interpret results relative to patient's use of biotin. Lab Interpretation (test code = 21999-5) Abnormal [facility] [id number] 17:30:19* Test Item Value Reference Range Interpretation Comme nts FERRITIN (test code = 5497099346) 4.8 ng/mL 6.0-137.0 L ZAINAB (test code = ZAINAB) Biotin has been reported to cause a negative bias, interpret results relative to patient's use of biotin. Lab Interpretation (test code = 26797-1) Abnormal [facility] [id number] 17:30:19* Test Item Value Reference Range Interpretation Comme nts FERRITIN (test code = 0923107418) 4.8 ng/mL 6.0-137.0 L ZAINAB (test code = ZAINAB) Biotin has been reported to cause a negative bias, interpret results relative to patient's use of biotin. Lab Interpretation (test code = 20023-6) Abnormal [facility] [id number] 17:30:19* Test Item Value Reference Range Interpretation Comme nts FERRITIN (test code = 5274377856) 4.8 ng/mL 6.0-137.0 L ZAINAB (test code = ZAINAB) Biotin has been reported to cause a negative bias, interpret results relative to patient's use of biotin. Lab Interpretation (test code = 00765-3) Abnormal [facility] [id number] 17:30:19* Test Item Value Reference Range Interpretation Comme nts FERRITIN (test code = 5973489330) 4.8 ng/mL 6.0-137.0 L ZAINAB (test code = ZAINAB) Biotin has been reported to cause a negative bias, interpret results relative to patient's use of biotin. Lab Interpretation (test code = 83326-7) [facility] [id number] 17:30:19* Test Item Value Reference Range Interpretation Comme nts FERRITIN (test code = 7218506347) 4.8 ng/mL 6.0-137.0 L ZAINAB (test code = ZAINAB) Biotin has been reported to cause a negative bias, interpret results relative to patient's use of biotin. Lab Interpretation (test code = 29394-8) [facility] [id number] 17:30:19* Test Item Value Reference Range Interpretation Comme nts FERRITIN (test code = 9871253961) 4.8 ng/mL 6.0-137.0 L ZAINAB (test code = ZAINAB) Biotin has been reported to cause a negative bias, interpret results relative to patient's use of biotin. Lab Interpretation (test code = 29231-3) Abnormal [facility] [id number] 17:03:34* Test Item Value Reference Range Interpretation Comme nts IRON (test code = 4890706610) 34 ug/dL 50-160 L TIBC (test code = 8520595138) 515 ug/dL 250-410 H % FE SAT (test code = 4012619411) 7 % 20-50 L Lab Interpretation (test cod e = 15637-5) Abnormal [facility] [id number] 17:03:34* Test Item Value Reference Range Interpretation Comme nts IRON (test code = 4814470834) 34 ug/dL 50-160 L TIBC (test code = 8057296699) 515 ug/dL 250-410 H % FE SAT (test code = 0818798128) 7 % 20-50 L Lab Interpretation (test cod e = 08165-4) Abnormal [facility] [id number] 17:03:34* Test Item Value Reference Range Interpretation Comme nts IRON (test code = 4819092390) 34 ug/dL 50-160 L TIBC (test code = 4700305681) 515 ug/dL 250-410 H % FE SAT (test code = 4145278653) 7 % 20-50 L Lab Interpretation (test cod e = 06527-2) Abnormal [facility]2023-09-07 17:03:34* Test Item Value Reference Range Interpretation Comme nts IRON (test code = 9611818807) 34 ug/dL 50-160 L TIBC (test code = 7925280856) 515 ug/dL 250-410 H % FE SAT (test code = 8059269687) 7 % 20-50 L Lab Interpretation (test cod e = 13640-7) Abnormal [facility]2023-09-07 17:03:34* Test Item Value Reference Range Interpretation Comme nts IRON (test code = 0982574799) 34 ug/dL 50-160 L TIBC (test code = 3431784297) 515 ug/dL 250-410 H % FE SAT (test code = 4352778429) 7 % 20-50 L Lab Interpretation (test cod e = 79890-4) Abnormal [facility]2023-09-07 17:03:34* Test Item Value Reference Range Interpretation Comme nts IRON (test code = 9406603394) 34 ug/dL 50-160 L TIBC (test code = 0518689252) 515 ug/dL 250-410 H % FE SAT (test code = 7630450840) 7 % 20-50 L Lab Interpretation (test cod e = 73090-3) Abnormal [facility]2023-09-07 17:03:34* Test Item Value Reference Range Interpretation Comme nts IRON (test code = 2347874017) 34 ug/dL 50-160 L TIBC (test code = 1085978756) 515 ug/dL 250-410 H % FE SAT (test code = 0095906643) 7 % 20-50 L Lab Interpretation (test cod e = 49357-7) Abnormal [facility]2023-09-07 17:03:34* Test Item Value Reference Range Interpretation Comme nts IRON (test code = 7311380508) 34 ug/dL 50-160 L TIBC (test code = 6784113189) 515 ug/dL 250-410 H % FE SAT (test code = 8375162475) 7 % 20-50 L Lab Interpretation (test cod e = 22081-3) Abnormal [facility]2023-09-07 17:03:34* Test Item Value Reference Range Interpretation Comme nts IRON (test code = 0619170422) 34 ug/dL 50-160 L TIBC (test code = 0160158159) 515 ug/dL 250-410 H % FE SAT (test code = 9989489841) 7 % 20-50 L Lab Interpretation (test cod e = 17945-9) Abnormal [facility] [id number] 17:03:34* Test Item Value Reference Range Interpretation Comme nts IRON (test code = 3890310182) 34 ug/dL 50-160 L TIBC (test code = 2104451710) 515 ug/dL 250-410 H % FE SAT (test code = 6989747864) 7 % 20-50 L Lab Interpretation (test cod e = 00725-4) Abnormal [facility] [id number] 17:03:34* Test Item Value Reference Range Interpretation Comme nts IRON (test code = 7347459043) 34 ug/dL 50-160 L TIBC (test code = 9985452316) 515 ug/dL 250-410 H % FE SAT (test code = 4370508621) 7 % 20-50 L Lab Interpretation (test cod e = 42938-3) Abnormal [facility] [id number] 17:03:34* Test Item Value Reference Range Interpretation Comme nts IRON (test code = 9659542762) 34 ug/dL 50-160 L TIBC (test code = 1765841805) 515 ug/dL 250-410 H % FE SAT (test code = 3642018010) 7 % 20-50 L Lab Interpretation (test cod e = 53124-1) Abnormal [facility]2023-08-24 19:48:06* Test Item Value Reference Range Interpretation Comme nts [place] (test code = 4047098793) 0.5 mmol/L 0.6-1.2 L ZAINAB (test code = ZAINAB) Toxic Range: ? Greater than 1.2 mmol/L Lab Interpretation (test code = 95838-0) Abnormal [facility]2023-08-24 19:48:06* Test Item Value Reference Range Interpretation Comme nts [place] (test code = 9642194906) 0.5 mmol/L 0.6-1.2 L ZAINAB (test code = ZAINAB) Toxic Range: ? Greater than 1.2 mmol/L Lab Interpretation (test code = 04222-3) Abnormal [facility]2023-08-24 19:48:06* Test Item Value Reference Range Interpretation Comme nts [place] (test code = 2559908614) 0.5 mmol/L 0.6-1.2 L ZAINAB (test code = ZAINAB) Toxic Range: ? Greater than 1.2 mmol/L Lab Interpretation (test code = 17160-9) Abnormal [facility]2023-08-24 19:48:06* Test Item Value Reference Range Interpretation Comme nts [place] (test code = 3595393348) 0.5 mmol/L 0.6-1.2 L ZAINAB (test code = ZAINAB) Toxic Range: ? Greater than 1.2 mmol/L Lab Interpretation (test code = 05358-2) Abnormal [facility]2023-08-24 19:48:06* Test Item Value Reference Range Interpretation Comme nts [place] (test code = 0613310165) 0.5 mmol/L 0.6-1.2 L ZAINAB (test code = ZAINAB) Toxic Range: ? Greater than 1.2 mmol/L Lab Interpretation (test code = 31142-1) Abnormal [facility]2023-08-24 19:48:06* Test Item Value Reference Range Interpretation Comme nts [place] (test code = 8156818328) 0.5 mmol/L 0.6-1.2 L ZAINAB (test code = ZAINAB) Toxic Range: ? Greater than 1.2 mmol/L Lab Interpretation (test code = 74326-4) Abnormal [facility]2023-08-24 19:48:06* Test Item Value Reference Range Interpretation Comme nts [place] (test code = 1944492265) 0.5 mmol/L 0.6-1.2 L ZAINAB (test code = ZAINAB) Toxic Range: ? Greater than 1.2 mmol/L Lab Interpretation (test code = 40415-2) Abnormal [facility]2023-08-24 19:48:06* Test Item Value Reference Range Interpretation Comme nts [place] (test code = 7683780173) 0.5 mmol/L 0.6-1.2 L ZAINAB (test code = ZAINAB) Toxic Range: ? Greater than 1.2 mmol/L Lab Interpretation (test code = 55268-8) Abnormal [facility]2023-08-24 19:48:06* Test Item Value Reference Range Interpretation Comme nts [place] (test code = 8814329056) 0.5 mmol/L 0.6-1.2 L ZAINAB (test code = ZAINAB) Toxic Range: ? Greater than 1.2 mmol/L Lab Interpretation (test code = 08925-2) Abnormal [facility]2023-08-24 19:48:06* Test Item Value Reference Range Interpretation Comme nts [place] (test code = 7541181175) 0.5 mmol/L 0.6-1.2 L ZAINAB (test code = ZAINAB) Toxic Range: ? Greater than 1.2 mmol/L Lab Interpretation (test code = 33343-9) Abnormal [facility]2023-08-24 19:48:06* Test Item Value Reference Range Interpretation Comme nts [place] (test code = 6693035762) 0.5 mmol/L 0.6-1.2 L ZAINAB (test code = ZAINAB) Toxic Range: ? Greater than 1.2 mmol/L Lab Interpretation (test code = 61667-3) Abnormal [facility]2023-08-24 19:48:06* Test Item Value Reference Range Interpretation Comme nts [place] (test code = 2920312127) 0.5 mmol/L 0.6-1.2 L ZAINAB (test code = ZAINAB) Toxic Range: ? Greater than 1.2 mmol/L Lab Interpretation (test code = 60342-1) Abnormal [facility]2023-08-24 19:48:06* Test Item Value Reference Range Interpretation Comme nts [place] (test code = 4451492533) 0.5 mmol/L 0.6-1.2 L ZAINAB (test code = ZAINAB) Toxic Range: ? Greater than 1.2 mmol/L Lab Interpretation (test code = 33271-9) [facility] 19:48:06* Test Item Value Reference Range Interpretation Comme nts [place] (test code = 5801520461) 0.5 mmol/L 0.6-1.2 L ZAINAB (test code = ZAINAB) Toxic Range: ? Greater than 1.2 mmol/L Lab Interpretation (test code = 48616-0) [facility] [id number] 17:24:34 * Test Item Value Reference Range Interpretation Comme nts TSH (test code = 0511535123) 1.07 See_Comment [Automated messa ge] The system which generated this result transmitted reference range: 0.45 - 4.70 mIU/L. The reference range was not used to interpret this result as normal/abnormal. Lab Interpretation (test code = 21458-3) Normal [facility] [id number] 17:24:34 * Test Item Value Reference Range Interpretation Comme nts TSH (test code = 3861927534) 1.07 See_Comment [Automated messa ge] The system which generated this result transmitted reference range: 0.45 - 4.70 mIU/L. The reference range was not used to interpret this result as normal/abnormal. Lab Interpretation (test code = 58274-5) [facility] [id number] 17:24:34 * Test Item Value Reference Range Interpretation Comme nts TSH (test code = 3922414591) 1.07 See_Comment [Automated messa ge] The system which generated this result transmitted reference range: 0.45 - 4.70 mIU/L. The reference range was not used to interpret this result as normal/abnormal. Lab Interpretation (test code = 48226-8) [facility] [id number] 17:24:34 * Test Item Value Reference Range Interpretation Comme nts TSH (test code = 8160856284) 1.07 See_Comment [Automated messa ge] The system which generated this result transmitted reference range: 0.45 - 4.70 mIU/L. The reference range was not used to interpret this result as normal/abnormal. Lab Interpretation (test code = 99570-5) [facility] [id number] 17:24:34 * Test Item Value Reference Range Interpretation Comme nts TSH (test code = 9097797833) 1.07 See_Comment [Automated messa ge] The system which generated this result transmitted reference range: 0.45 - 4.70 mIU/L. The reference range was not used to interpret this result as normal/abnormal. Lab Interpretation (test code = 63669-3) [facility] [id number] 17:24:34 * Test Item Value Reference Range Interpretation Comme nts TSH (test code = 6047594139) 1.07 See_Comment [Automated messa ge] The system which generated this result transmitted reference range: 0.45 - 4.70 mIU/L. The reference range was not used to interpret this result as normal/abnormal. Lab Interpretation (test code = 42352-3) [facility] [id number] 17:24:34 * Test Item Value Reference Range Interpretation Comme nts TSH (test code = 0751142848) 1.07 See_Comment [Automated messa ge] The system which generated this result transmitted reference range: 0.45 - 4.70 mIU/L. The reference range was not used to interpret this result as normal/abnormal. Lab Interpretation (test code = 81063-3) Normal [facility] [id number] 17:24:34 * Test Item Value Reference Range Interpretation Comme nts TSH (test code = 8984858237) 1.07 See_Comment [Automated messa ge] The system which generated this result transmitted reference range: 0.45 - 4.70 mIU/L. The reference range was not used to interpret this result as normal/abnormal. Lab Interpretation (test code = 10338-7) [facility] [id number] 17:24:34 * Test Item Value Reference Range Interpretation Comme nts TSH (test code = 7095087875) 1.07 See_Comment [Automated messa ge] The system which generated this result transmitted reference range: 0.45 - 4.70 mIU/L. The reference range was not used to interpret this result as normal/abnormal. Lab Interpretation (test code = 60481-6) [facility] [id number] 17:24:34 * Test Item Value Reference Range Interpretation Comme nts TSH (test code = 1283407574) 1.07 See_Comment [Automated messa ge] The system which generated this result transmitted reference range: 0.45 - 4.70 mIU/L. The reference range was not used to interpret this result as normal/abnormal. Lab Interpretation (test code = 47639-2) Normal [facility] [id number] 17:24:34 * Test Item Value Reference Range Interpretation Comme nts TSH (test code = 6634952422) 1.07 See_Comment [Automated messa ge] The system which generated this result transmitted reference range: 0.45 - 4.70 mIU/L. The reference range was not used to interpret this result as normal/abnormal. Lab Interpretation (test code = 59958-8) Normal [facility] [id number] 17:24:34 * Test Item Value Reference Range Interpretation Comme nts TSH (test code = 8171945262) 1.07 See_Comment [Automated messa ge] The system which generated this result transmitted reference range: 0.45 - 4.70 mIU/L. The reference range was not used to interpret this result as normal/abnormal. Lab Interpretation (test code = 75751-9) [facility] [id number] 17:24:34 * Test Item Value Reference Range Interpretation Comme nts TSH (test code = 7205617254) 1.07 See_Comment [Automated messa ge] The system which generated this result transmitted reference range: 0.45 - 4.70 mIU/L. The reference range was not used to interpret this result as normal/abnormal. Lab Interpretation (test code = 82481-1) Normal [facility] [id number] 17:24:34 * Test Item Value Reference Range Interpretation Comme nts TSH (test code = 6176735770) 1.07 See_Comment [Automated messa ge] The system which generated this result transmitted reference range: 0.45 - 4.70 mIU/L. The reference range was not used to interpret this result as normal/abnormal. Lab Interpretation (test code = 61028-2) Normal [facility] METABOLIC PANEL (60999)2022-10-05 16:54:48* Test Item Value Reference Range Interpretation Comme nts NA (test code = 7646133437) 140 mmol/L 135-145 K (test code = 2333268636) 4.6 mmol/L 3.5-5.0 CL (test code = 9572866709) 106 mmol/L 98-108 CO2 TOTAL (test code = 3201059392) 28 mmol/L 23-31 AGAP (test code = 1801135527) 6 2-16 BUN (test code = 1649103449) 5 mg/dL 7-23 L GLUCOSE (test code = 1275435655) 90 mg/dL 70-110 CREATININE (test code = 4683167094) 0.54 mg/dL 0.50-1.04 TOTAL BILI (test code = 2344240495) 0.1 mg/dL 0.1-1.1 CALCIUM (test code = 0245186120) 9.6 mg/dL 8.6-10.6 T PROTEIN (test code = 0265822667) 6.2 g/dL 6.3-8.2 L ALBUMIN (test code = 7205229162) 4.0 g/dL 3.5-5.0 ALK PHOS (test code = 7733079302) 125 U/L 34-122 H ALTv (test code = 1742-6) 29 U/L 5-35 AST(SGOT) (test code = 5498402347) 24 U/L 13-40 eGFR (test code = 4178611741) 122.1 mL/min/1.73m2 ZAINAB (test code = ZAINAB) [...] imaging tests). Lab Interpretation (test code = 75020-7) [facility] (82807)(TOTAL CHOLESTEROL, TRIGLYCERIDES, HDL)2022-10-05 16:54:48* Test Item Value Reference Range Interpretation Comme nts CHOL (test code = 0633750143) 183 mg/dL 120-200 HDL (test code = 2242844604) 40 mg/dL >=50 L HDLC RATIO (test code = 5797083037) 4.6 <=4.5 H TRIG (test code = 4561650575) 128 mg/dL 30-170 LDL CHOL (test code = 38917-3) 117 mg/dL <=160 VLDL (test code = 7645939798) 26 mg/dL 5-60 Lab Interpretation (test cod e = 33749-0) [facility]OL[facility] (97603)2022-10-05 16:54:48* Test Item Value Reference Range Interpretation Comme nts NA (test code = 9148628398) 140 mmol/L 135-145 K (test code = 1114701892) 4.6 mmol/L 3.5-5.0 CL (test code = 0687172599) 106 mmol/L 98-108 CO2 TOTAL (test code = 7516703601) 28 mmol/L 23-31 AGAP (test code = 4283527119) 6 2-16 BUN (test code = 7752570465) 5 mg/dL 7-23 L GLUCOSE (test code = 6464341460) 90 mg/dL 70-110 CREATININE (test code = 1517385171) 0.54 mg/dL 0.50-1.04 TOTAL BILI (test code = 1081998688) 0.1 mg/dL 0.1-1.1 CALCIUM (test code = 6598452536) 9.6 mg/dL 8.6-10.6 T PROTEIN (test code = 5459571517) 6.2 g/dL 6.3-8.2 L ALBUMIN (test code = 4550732970) 4.0 g/dL 3.5-5.0 ALK PHOS (test code = 4978022867) 125 U/L 34-122 H ALTv (test code = 1742-6) 29 U/L 5-35 AST(SGOT) (test code = 9788392307) 24 U/L 13-40 eGFR (test code = 0801362874) 122.1 mL/min/1.73m2 ZAINAB (test code = ZAINAB) [...] imaging tests). Lab Interpretation (test code = 02234-0) [facility] CenterL[facility] (88445)(TOTAL CHOLESTEROL, TRIGLYCERIDES, HDL)2022-10-05 16:54:48* Test Item Value Reference Range Interpretation Comme nts CHOL (test code = 7680331111) 183 mg/dL 120-200 HDL (test code = 8742695714) 40 mg/dL >=50 L HDLC RATIO (test code = 2415804245) 4.6 <=4.5 H TRIG (test code = 8214516803) 128 mg/dL 30-170 LDL CHOL (test code = 25464-3) 117 mg/dL <=160 VLDL (test code = 7759899366) 26 mg/dL 5-60 Lab Interpretation (test cod e = 81185-7) [facility] (29152)2022-10-05 16:54:48* Test Item Value Reference Range Interpretation Comme nts NA (test code = 7479329212) 140 mmol/L 135-145 K (test code = 8026255668) 4.6 mmol/L 3.5-5.0 CL (test code = 2367771381) 106 mmol/L 98-108 CO2 TOTAL (test code = 0780136002) 28 mmol/L 23-31 AGAP (test code = 2800266297) 6 2-16 BUN (test code = 9462509395) 5 mg/dL 7-23 L GLUCOSE (test code = 7514556162) 90 mg/dL 70-110 CREATININE (test code = 1638178866) 0.54 mg/dL 0.50-1.04 TOTAL BILI (test code = 8690849519) 0.1 mg/dL 0.1-1.1 CALCIUM (test code = 7178361600) 9.6 mg/dL 8.6-10.6 T PROTEIN (test code = 1140307236) 6.2 g/dL 6.3-8.2 L ALBUMIN (test code = 1485794646) 4.0 g/dL 3.5-5.0 ALK PHOS (test code = 9561622058) 125 U/L 34-122 H ALTv (test code = 1742-6) 29 U/L 5-35 AST(SGOT) (test code = 5558473057) 24 U/L 13-40 eGFR (test code = 3166685268) 122.1 mL/min/1.73m2 ZAINAB (test code = ZAINAB) [...] imaging tests). Lab Interpretation (test code = 20481-8) [facility][id number][facility]TOTAL CHOLESTEROL, TRIGLYCERIDES, HDL)2022-10-05 16:54:48* Test Item Value Reference Range Interpretation Comme nts CHOL (test code = 8395990429) 183 mg/dL 120-200 HDL (test code = 2482995352) 40 mg/dL >=50 L HDLC RATIO (test code = 4729739200) 4.6 <=4.5 H TRIG (test code = 7014232658) 128 mg/dL 30-170 LDL CHOL (test code = 99014-2) 117 mg/dL <=160 VLDL (test code = 9357097537) 26 mg/dL 5-60 Lab Interpretation (test cod e = 06630-2) [facility]TOTAL CHOLESTEROL, TRIGLYCERIDES, HDL)2022-10-05 16:54:48* Test Item Value Reference Range Interpretation Comme nts CHOL (test code = 5319644328) 183 mg/dL 120-200 HDL (test code = 1378122471) 40 mg/dL >=50 L HDLC RATIO (test code = 4965126592) 4.6 <=4.5 H TRIG (test code = 4107006822) 128 mg/dL 30-170 LDL CHOL (test code = 96263-6) 117 mg/dL <=160 VLDL (test code = 2995001369) 26 mg/dL 5-60 Lab Interpretation (test cod e = 48526-1) [facility]85362[facility]TOTAL CHOLESTEROL, TRIGLYCERIDES, HDL)2022-10-05 16:54:48* Test Item Value Reference Range Interpretation Comme nts CHOL (test code = 2917927701) 183 mg/dL 120-200 HDL (test code = 1001044597) 40 mg/dL >=50 L HDLC RATIO (test code = 3061528815) 4.6 <=4.5 H TRIG (test code = 5768726365) 128 mg/dL 30-170 LDL CHOL (test code = 68520-8) 117 mg/dL <=160 VLDL (test code = 1471894802) 26 mg/dL 5-60 Lab Interpretation (test cod e = 48051-5) [facility]08800[facility]TOTAL CHOLESTEROL, TRIGLYCERIDES, HDL)2022-10-05 16:54:48* Test Item Value Reference Range Interpretation Comme nts CHOL (test code = 2565127661) 183 mg/dL 120-200 HDL (test code = 6373190714) 40 mg/dL >=50 L HDLC RATIO (test code = 4390345698) 4.6 <=4.5 H TRIG (test code = 1517409976) 128 mg/dL 30-170 LDL CHOL (test code = 24841-0) 117 mg/dL <=160 VLDL (test code = 6040674520) 26 mg/dL 5-60 Lab Interpretation (test cod e = 42912-7) [facility]66628[facility]TOTAL CHOLESTEROL, TRIGLYCERIDES, HDL)2022-10-05 16:54:48* Test Item Value Reference Range Interpretation Comme nts CHOL (test code = 3639826673) 183 mg/dL 120-200 HDL (test code = 6243541766) 40 mg/dL >=50 L HDLC RATIO (test code = 5787503620) 4.6 <=4.5 H TRIG (test code = 7403326682) 128 mg/dL 30-170 LDL CHOL (test code = 66974-3) 117 mg/dL <=160 VLDL (test code = 6566354767) 26 mg/dL 5-60 Lab Interpretation (test cod e = 69660-5) [facility] (82899)(TOTAL CHOLESTEROL, TRIGLYCERIDES, HDL)2022-10-05 16:54:48* Test Item Value Reference Range Interpretation Comme nts CHOL (test code = 0777313416) 183 mg/dL 120-200 HDL (test code = 0785004431) 40 mg/dL >=50 L HDLC RATIO (test code = 1891861152) 4.6 <=4.5 H TRIG (test code = 1893924537) 128 mg/dL 30-170 LDL CHOL (test code = 30757-4) 117 mg/dL <=160 VLDL (test code = 4819604125) 26 mg/dL 5-60 Lab Interpretation (test cod e = 49018-0) [facility]77173)(TOTAL CHOLESTEROL, TRIGLYCERIDES, HDL)2022-10-05 16:54:48* Test Item Value Reference Range Interpretation Comme nts CHOL (test code = 5806407877) 183 mg/dL 120-200 HDL (test code = 6597562325) 40 mg/dL >=50 L HDLC RATIO (test code = 1909788012) 4.6 <=4.5 H TRIG (test code = 4296962696) 128 mg/dL 30-170 LDL CHOL (test code = 26009-0) 117 mg/dL <=160 VLDL (test code = 3275314674) 26 mg/dL 5-60 Lab Interpretation (test cod e = 95659-4) [facility] (50908)(TOTAL CHOLESTEROL, TRIGLYCERIDES, HDL)2022-10-05 16:54:48* Test Item Value Reference Range Interpretation Comme nts CHOL (test code = 1512106468) 183 mg/dL 120-200 HDL (test code = 5264011016) 40 mg/dL >=50 L HDLC RATIO (test code = 0820208433) 4.6 <=4.5 H TRIG (test code = 5690896580) 128 mg/dL 30-170 LDL CHOL (test code = 77115-8) 117 mg/dL <=160 VLDL (test code = 4386175204) 26 mg/dL 5-60 Lab Interpretation (test cod e = 35098-1) [facility]06921)(TOTAL CHOLESTEROL, TRIGLYCERIDES, HDL)2022-10-05 16:54:48* Test Item Value Reference Range Interpretation Comme nts CHOL (test code = 9692311987) 183 mg/dL 120-200 HDL (test code = 4637099990) 40 mg/dL >=50 L HDLC RATIO (test code = 1122896870) 4.6 <=4.5 H TRIG (test code = 4874360390) 128 mg/dL 30-170 LDL CHOL (test code = 40269-9) 117 mg/dL <=160 VLDL (test code = 8945954448) 26 mg/dL 5-60 Lab Interpretation (test cod e = 93544-4) [facility] (54492)(TOTAL CHOLESTEROL, TRIGLYCERIDES, HDL)2022-10-05 16:54:48* Test Item Value Reference Range Interpretation Comme nts CHOL (test code = 4385918077) 183 mg/dL 120-200 HDL (test code = 5796799252) 40 mg/dL >=50 L HDLC RATIO (test code = 6103980591) 4.6 <=4.5 H TRIG (test code = 6559686164) 128 mg/dL 30-170 LDL CHOL (test code = 46393-7) 117 mg/dL <=160 VLDL (test code = 3424786625) 26 mg/dL 5-60 Lab Interpretation (test cod e = 21618-8) [facility] (55815)(TOTAL CHOLESTEROL, TRIGLYCERIDES, HDL)2022-10-05 16:54:48* Test Item Value Reference Range Interpretation Comme nts CHOL (test code = 7030431569) 183 mg/dL 120-200 HDL (test code = 3596259475) 40 mg/dL >=50 L HDLC RATIO (test code = 7739662814) 4.6 <=4.5 H TRIG (test code = 8150828433) 128 mg/dL 30-170 LDL CHOL (test code = 49778-1) 117 mg/dL <=160 VLDL (test code = 7667774050) 26 mg/dL 5-60 Lab Interpretation (test cod e = 41396-5) [facility] (80008)(TOTAL CHOLESTEROL, TRIGLYCERIDES, HDL)2022-10-05 16:54:48* Test Item Value Reference Range Interpretation Comme nts CHOL (test code = 4336160930) 183 mg/dL 120-200 HDL (test code = 5719532312) 40 mg/dL >=50 L HDLC RATIO (test code = 8279810487) 4.6 <=4.5 H TRIG (test code = 7814014328) 128 mg/dL 30-170 LDL CHOL (test code = 39344-5) 117 mg/dL <=160 VLDL (test code = 9604422931) 26 mg/dL 5-60 Lab Interpretation (test cod e = 82966-1) [facility]normal [facility]C)2022-10-05 15:51:11* Test Item Value Reference Range Interpretation Comme nts HGB A1C (test code = 4548-4) 5.1 % 4.0-5.7 ZAINAB (test code = ZAINAB) Reference RangesNormal: <5.7%Prediabetes: 5.7 - 6.4%Diabetes: > 6.5% Lab Interpretation (test code = 47201-7) Normal [facility]2022-10-05 15:51:11* Test Item Value Reference Range Interpretation Comme nts HGB A1C (test code = 4548-4) 5.1 % 4.0-5.7 ZAINAB (test code = ZAINAB) Reference RangesNormal: <5.7%Prediabetes: 5.7 - 6.4%Diabetes: > 6.5% Lab Interpretation (test code = 19131-4) [facility] 15:51:11* Test Item Value Reference Range Interpretation Comme nts HGB A1C (test code = 4548-4) 5.1 % 4.0-5.7 ZAINAB (test code = ZAINAB) Reference RangesNormal: <5.7%Prediabetes: 5.7 - 6.4%Diabetes: > 6.5% Lab Interpretation (test code = 08104-7) [facility]-05 15:51:11* Test Item Value Reference Range Interpretation Comme nts HGB A1C (test code = 4548-4) 5.1 % 4.0-5.7 ZAINAB (test code = ZAINAB) Reference RangesNormal: <5.7%Prediabetes: 5.7 - 6.4%Diabetes: > 6.5% Lab Interpretation (test code = 48722-1) [facility]05 15:51:11* Test Item Value Reference Range Interpretation Comme nts HGB A1C (test code = 4548-4) 5.1 % 4.0-5.7 ZAINAB (test code = ZAINAB) Reference RangesNormal: <5.7%Prediabetes: 5.7 - 6.4%Diabetes: > 6.5% Lab Interpretation (test code = 81242-0) [facility]05 15:51:11* Test Item Value Reference Range Interpretation Comme nts HGB A1C (test code = 4548-4) 5.1 % 4.0-5.7 ZAINAB (test code = ZAINAB) Reference RangesNormal: <5.7%Prediabetes: 5.7 - 6.4%Diabetes: > 6.5% Lab Interpretation (test code = 87902-2) [facility]-05 15:51:11* Test Item Value Reference Range Interpretation Comme nts HGB A1C (test code = 4548-4) 5.1 % 4.0-5.7 ZAINAB (test code = ZAINAB) Reference RangesNormal: <5.7%Prediabetes: 5.7 - 6.4%Diabetes: > 6.5% Lab Interpretation (test code = 33492-8) [facility]-05 15:51:11* Test Item Value Reference Range Interpretation Comme nts HGB A1C (test code = 4548-4) 5.1 % 4.0-5.7 ZAINAB (test code = ZAINAB) Reference RangesNormal: <5.7%Prediabetes: 5.7 - 6.4%Diabetes: > 6.5% Lab Interpretation (test code = 88744-8) [facility]-05 15:51:11* Test Item Value Reference Range Interpretation Comme nts HGB A1C (test code = 4548-4) 5.1 % 4.0-5.7 ZAINAB (test code = ZAINAB) Reference RangesNormal: <5.7%Prediabetes: 5.7 - 6.4%Diabetes: > 6.5% Lab Interpretation (test code = 25180-2) [facility]-05 15:51:11* Test Item Value Reference Range Interpretation Comme nts HGB A1C (test code = 4548-4) 5.1 % 4.0-5.7 ZAINAB (test code = ZAINAB) Reference RangesNormal: <5.7%Prediabetes: 5.7 - 6.4%Diabetes: > 6.5% Lab Interpretation (test code = 22115-2) [facility]-05 15:51:11* Test Item Value Reference Range Interpretation Comme nts HGB A1C (test code = 4548-4) 5.1 % 4.0-5.7 ZAINAB (test code = ZAINAB) Reference RangesNormal: <5.7%Prediabetes: 5.7 - 6.4%Diabetes: > 6.5% Lab Interpretation (test code = 34228-4) [facility]-05 15:51:11* Test Item Value Reference Range Interpretation Comme nts HGB A1C (test code = 4548-4) 5.1 % 4.0-5.7 ZAINAB (test code = ZAINAB) Reference RangesNormal: <5.7%Prediabetes: 5.7 - 6.4%Diabetes: > 6.5% Lab Interpretation (test code = 65355-3) [facility]2022-10-05 15:51:11* Test Item Value Reference Range Interpretation Comme nts HGB A1C (test code = 4548-4) 5.1 % 4.0-5.7 ZAINAB (test code = ZAINAB) Reference RangesNormal: <5.7%Prediabetes: 5.7 - 6.4%Diabetes: > 6.5% Lab Interpretation (test code = 14026-5) Normal [facility]2022-10-05 15:51:11* Test Item Value Reference Range Interpretation Comme nts HGB A1C (test code = 4548-4) 5.1 % 4.0-5.7 ZAINAB (test code = ZAINAB) Reference RangesNormal: <5.7%Prediabetes: 5.7 - 6.4%Diabetes: > 6.5% Lab Interpretation (test code = 39815-1) [facility] [id number] 15:20:32* Test Item Value Reference Range Interpretation [...] g/dL 31.6-35.1 L RDW-SD (test code = 98491-1) 47.8 fL 39.0-49.9 RDW-CV (test code = 788-0) 18.0 % 12.0-15.5 H PLT (test code = 777-3) 296 See_Comment [Automated messa ge] The system which generated this result transmitted reference range: 166 - 358 10*3/?L. The reference range was not used to interpret this result as normal/abnormal. MPV (test code = 39754-1) 10.7 fL 9.5-12.9 NRBC/100 WBC (test code = 9772995960) 0.0 See_Comment [Automated i[employer] ssage] The system which generated this result transmitted reference range: 0.0 - 10.0 /100 WBCs. The reference range was not used to interpret this result as normal/abnormal. NRBC x10^3 (test code = 3677862288) See_Comment [Automated messa ge] The system which generated this result transmitted reference range: 10*3/?L. The reference range was not used to interpret this result as normal/abnormal. GRAN MAT (NEUT) % (test code = 770-8) 70.0 % IMM GRAN % (test code = 7280174604) 0.40 % LYMPH % (test code = 736-9) 18.7 % MONO % (test code = 5905-5) 5.7 % EOS % (test code = 713-8) 4.5 % BASO % (test code = 706-2) 0.7 % GRAN MAT x10^3(ANC) (test code = 3038138706) 4.66 10*3/uL 1.88-7.09 IMM GRAN x10^3 (test code = 4687167334) 0.03 10*3/uL 0.00-0.06 LYMPH x10^3 (test code = 731-0) 1.25 10*3/uL 1.32-3.29 L MONO x10^3 (test code = 742-7) 0.38 10*3/uL 0.33-0.92 EOS x10^3 (test code = 711-2) 0.30 10*3/uL 0.03-0.39 BASO x10^3 (test code = 704-7) 0.05 10*3/uL 0.01-0.07 Lab Interpretation (test code = 11963-1) Abnormal [facility] WITH [id number] 15:20:32* Test Item Value Reference Range Interpretation [...] g/dL 31.6-35.1 L RDW-SD (test code = 82299-5) 47.8 fL 39.0-49.9 RDW-CV (test code = 788-0) 18.0 % 12.0-15.5 H PLT (test code = 777-3) 296 See_Comment [Automated messa ge] The system which generated this result transmitted reference range: 166 - 358 10*3/?L. The reference range was not used to interpret this result as normal/abnormal. MPV (test code = 55474-6) 10.7 fL 9.5-12.9 NRBC/100 WBC (test code = 0733747362) 0.0 See_Comment [Automated me ssage] The system which generated this result transmitted reference range: 0.0 - 10.0 /100 WBCs. The reference range was not used to interpret this result as normal/abnormal. NRBC x10^3 (test code = 1415724864) See_Comment [Automated messa ge] The system which generated this result transmitted reference range: 10*3/?L. The reference range was not used to interpret this result as normal/abnormal. GRAN MAT (NEUT) % (test code = 770-8) 70.0 % IMM GRAN % (test code = 0341122866) 0.40 % LYMPH % (test code = 736-9) 18.7 % MONO % (test code = 5905-5) 5.7 % EOS % (test code = 713-8) 4.5 % BASO % (test code = 706-2) 0.7 % GRAN MAT x10^3(ANC) (test code = 5463469039) 4.66 10*3/uL 1.88-7.09 IMM GRAN x10^3 (test code = 4836549705) 0.03 10*3/uL 0.00-0.06 LYMPH x10^3 (test code = 731-0) 1.25 10*3/uL 1.32-3.29 L MONO x10^3 (test code = 742-7) 0.38 10*3/uL 0.33-0.92 EOS x10^3 (test code = 711-2) 0.30 10*3/uL 0.03-0.39 BASO x10^3 (test code = 704-7) 0.05 10*3/uL 0.01-0.07 Lab Interpretation (test code = 82981-3) Abnormal [facility] WITH [id number] 15:20:32* Test Item Value Reference Range Interpretation [...] g/dL 31.6-35.1 L RDW-SD (test code = 67947-5) 47.8 fL 39.0-49.9 RDW-CV (test code = 788-0) 18.0 % 12.0-15.5 H PLT (test code = 777-3) 296 See_Comment [[employer]ated [employer]] The system which generated this result transmitted reference range: 166 - 358 10*3/?L. The reference range was not used to interpret this result as normal/abnormal. MPV (test code = 75380-8) 10.7 fL 9.5-12.9 NRBC/100 WBC (test code = 5014343098) 0.0 See_Comment [Automated i[employer] ssage] The system which generated this result transmitted reference range: 0.0 - 10.0 /100 WBCs. The reference range was not used to interpret this result as normal/abnormal. NRBC x10^3 (test code = 6008105019) See_Comment [[employer] ge] The system which generated this result transmitted reference range: 10*3/?L. The reference range was not used to interpret this result as normal/abnormal. GRAN MAT (NEUT) % (test code = 770-8) 70.0 % IMM GRAN % (test code = 7786228520) 0.40 % LYMPH % (test code = 736-9) 18.7 % MONO % (test code = 5905-5) 5.7 % EOS % (test code = 713-8) 4.5 % BASO % (test code = 706-2) 0.7 % GRAN MAT x10^3(ANC) (test code = 8100918872) 4.66 10*3/uL 1.88-7.09 IMM GRAN x10^3 (test code = 1877509146) 0.03 10*3/uL 0.00-0.06 LYMPH x10^3 (test code = 731-0) 1.25 10*3/uL 1.32-3.29 L MONO x10^3 (test code = 742-7) 0.38 10*3/uL 0.33-0.92 EOS x10^3 (test code = 711-2) 0.30 10*3/uL 0.03-0.39 BASO x10^3 (test code = 704-7) 0.05 10*3/uL 0.01-0.07 Lab Interpretation (test code = 12463-5) Abnormal [facility]2023-06-14 17:27:33* Test Item Value Reference Range Interpretation Comme nts [place] (test code = 9007493959) 0.3 mmol/L 0.6-1.2 L ZAINAB (test code = ZAINAB) Toxic Range: ? Greater than 1.2 mmol/L Lab Interpretation (test code = 85485-8) Abnormal [facility]2023-06-14 17:27:33* Test Item Value Reference Range Interpretation Comme nts [place] (test code = 9251801289) 0.3 mmol/L 0.6-1.2 L ZAINAB (test code = ZAINAB) Toxic Range: ? Greater than 1.2 mmol/L Lab Interpretation (test code = 07964-1) Abnormal [facility]2023-06-14 17:27:33* Test Item Value Reference Range Interpretation Comme nts [place] (test code = 2080104013) 0.3 mmol/L 0.6-1.2 L ZAINAB (test code = ZAINAB) Toxic Range: ? Greater than 1.2 mmol/L Lab Interpretation (test code = 10277-3) Abnormal [facility]2023-06-14 17:27:33* Test Item Value Reference Range Interpretation Comme nts [place] (test code = 4852977459) 0.3 mmol/L 0.6-1.2 L ZAINAB (test code = ZAINAB) Toxic Range: ? Greater than 1.2 mmol/L Lab Interpretation (test code = 50909-9) Abnormal [facility]2023-06-14 17:27:33* Test Item Value Reference Range Interpretation Comme nts [place] (test code = 9083908200) 0.3 mmol/L 0.6-1.2 L ZAINAB (test code = ZAINAB) Toxic Range: ? Greater than 1.2 mmol/L Lab Interpretation (test code = 06670-4) Abnormal [facility]2023-06-14 17:27:33* Test Item Value Reference Range Interpretation Comme nts [place] (test code = 0966289411) 0.3 mmol/L 0.6-1.2 L ZAINAB (test code = ZAINAB) Toxic Range: ? Greater than 1.2 mmol/L Lab Interpretation (test code = 77645-5) Abnormal [facility]2023-06-14 17:27:33* Test Item Value Reference Range Interpretation Comme nts [place] (test code = 2866390198) 0.3 mmol/L 0.6-1.2 L ZAINAB (test code = ZAINAB) Toxic Range: ? Greater than 1.2 mmol/L Lab Interpretation (test code = 16893-3) Abnormal [facility]2023-06-14 17:27:33* Test Item Value Reference Range Interpretation Comme nts [place] (test code = 4435099384) 0.3 mmol/L 0.6-1.2 L ZAINAB (test code = ZAINAB) Toxic Range: ? Greater than 1.2 mmol/L Lab Interpretation (test code = 51146-4) Abnormal [facility]2023-06-14 17:27:33* Test Item Value Reference Range Interpretation Comme nts [place] (test code = 1995134486) 0.3 mmol/L 0.6-1.2 L ZAINAB (test code = ZAINAB) Toxic Range: ? Greater than 1.2 mmol/L Lab Interpretation (test code = 55315-9) Abnormal [facility]2023-06-14 17:27:33* Test Item Value Reference Range Interpretation Comme nts [place] (test code = 1823500848) 0.3 mmol/L 0.6-1.2 L ZAINAB (test code = ZAINAB) Toxic Range: ? Greater than 1.2 mmol/L Lab Interpretation (test code = 67712-2) Abnormal [facility]2023-06-14 17:27:33* Test Item Value Reference Range Interpretation Comme nts [place] (test code = 3501004963) 0.3 mmol/L 0.6-1.2 L ZAINAB (test code = ZAINAB) Toxic Range: ? Greater than 1.2 mmol/L Lab Interpretation (test code = 20852-6) Abnormal [facility]2023-06-14 17:27:33* Test Item Value Reference Range Interpretation Comme nts [place] (test code = 5195212201) 0.3 mmol/L 0.6-1.2 L ZAINAB (test code = ZAINAB) Toxic Range: ? Greater than 1.2 mmol/L Lab Interpretation (test code = 47822-1) Abnormal [facility] W/AUTO DIFF WITH [id number] 06:12:05* Test Item Value Reference Range Interpretation [...] 0.00-0.10 ABS NUCLEATED RBCS (test code = 67436) 0.00 K/UL 0.00-0.11 RETICULOCYTE WITH [id number] 06:12:05* Test Item Value Reference Range Interpretation Comme nts RETICULOCYTE COUNT (test code = 1018) 2.50 % 0.80-2.40 H ABSOLUTE RETICULOCYTE (test code = 45080) 103.3 K/UL 32.0-105.0 [facility] has important pathology staff changes effective 04/12/2022. New pathology staff will provide uninterrupted, excellent patient care and clinical consultation. See URL: [email or web address]. UNLESS OTHERWISE INDICATED, ALL TESTING PERFORMED AT [facility] [address] [place] [address] R[employer] ROOTER OPERATOR: CHARLA HERNANDEZ M.D. CLIA NUMBER [id number] [facility]. [id number] CBC W/AUTO [id number] 00:00:00* Test Item Value Reference Range Interpretation [...] ABS NUCLEATED RBCS (test cod e = 79906) 0.00 K/UL Robert CaliRETICULOCYTE WITH [id number] 00:00:00* Test Item Value Reference Range Interpretation Comme nts RETICULOCYTE COUNT (test cod e = 1018) 2.50 % ABSOLUTE RETICULOCYTE (test code = 02410) 103.3 K/UL Robert Ambrose VirajCBC W/AUTO [id number] 00:00:00* Test Item Value Reference Range Interpretation [...] ABS NUCLEATED RBCS (test cod e = 14222) 0.00 K/UL Robert Ambrose VirajRETICULOCYTE WITH [id number] 00:00:00* Test Item Value Reference Range Interpretation Comme nts RETICULOCYTE COUNT (test cod e = 1018) 2.50 % ABSOLUTE RETICULOCYTE (test code = 66325) 103.3 K/UL Robert CaliCBC W/AUTO [id number] 00:00:00* Test Item Value Reference Range Interpretation [...] ABS NUCLEATED RBCS (test cod e = 51448) 0.00 K/UL Robert CaliRETICULOCYTE WITH [id number] 00:00:00* Test Item Value Reference Range Interpretation Comme nts RETICULOCYTE COUNT (test cod e = 1018) 2.50 % ABSOLUTE RETICULOCYTE (test code = 58017) 103.3 K/UL Robert CaliCBC W/AUTO [id number] 00:00:00* Test Item Value Reference Range Interpretation [...] ABS NUCLEATED RBCS (test cod e = 98283) 0.00 K/UL Robert CaliRETICULOCYTE WITH [id number] 00:00:00* Test Item Value Reference Range Interpretation Comme nts RETICULOCYTE COUNT (test cod e = 1018) 2.50 % ABSOLUTE RETICULOCYTE (test code = 26340) 103.3 K/UL Robert CaliCBC W/AUTO [id number] 00:00:00* Test Item Value Reference Range Interpretation [...] ABS NUCLEATED RBCS (test cod e = 97987) 0.00 K/UL Robert CaliRETICULOCYTE WITH [id number] 00:00:00* Test Item Value Reference Range Interpretation Comme nts RETICULOCYTE COUNT (test cod e = 1018) 2.50 % ABSOLUTE RETICULOCYTE (test code = 72724) 103.3 K/UL Robert CaliYAZMIN NON-REFLEX TO [id number] 05:55:49* Test Item Value Reference Range Interpretation Comme nts ANTI-NUCLEAR ANTIBODIES (test code = 3506) NEGATIVE NEGATIVE METHODOLOGY IS I NDIRECT IMMUNOFLUORESCENT ASSAY (IFA) WITH HUMAN EPITHELIAL (HEP-2) CELL LINE SUBSTRATE. YAZMIN NON-REFLEX TO [id number] 00:00:00* Test Item Value Reference Range Interpretation Comme nts ANTI-NUCLEAR ANTIBODIES (aram t code = 3506) NEGATIVE Robert Ambrose AustinANA NON-REFLEX TO [id number] 00:00:00* Test Item Value Reference Range Interpretation Comme nts ANTI-NUCLEAR ANTIBODIES (aram t code = 3506) NEGATIVE Robert Arnol AustinANA NON-REFLEX TO [id number] 00:00:00* Test Item Value Reference Range Interpretation Comme nts ANTI-NUCLEAR ANTIBODIES (aram t code = 3506) NEGATIVE Robert Ambrose AustinANA NON-REFLEX TO [id number] 00:00:00* Test Item Value Reference Range Interpretation Comme nts ANTI-NUCLEAR ANTIBODIES (aram t code = 3506) NEGATIVE Robert Ambrose AustinANA NON-REFLEX TO [id number] 00:00:00* Test Item Value Reference Range Interpretation Comme nts ANTI-NUCLEAR ANTIBODIES (aram t code = 3506) NEGATIVE Robert CaliFOLATE, [id number] 12:42:51* Test Item Value Reference Range Interpretation [...] . . . NG/ML >1504 TSH, THIRD [id number] 11:05:54* Test Item Value Reference Range Interpretation Comme nts TSH, THIRD GENERATION (test code = 2821) 1.310 UIU/ML 0.400-4.100 VITAMIN [id number] 11:05:54* Test Item Value Reference Range Interpretation Comme nts VITAMIN B-12 (test code = 2840) 436 PG/ML 200-950 VITAMIN D, 25 [id number] 11:03:45* Test Item Value Reference Range Interpretation Comme [facility] VITAMIN D, 25 [place] (test code [...] . . . . . NG/ML 30-100 [facility] has important pathology staff changes effective 04/12/2022. New pathology staff will provide uninterrupted, excellent patient care and clinical consultation. See URL: [email or web address]. UNLESS OTHERWISE INDICATED, ALL TESTING PERFORMED AT [facility] [address] [place] [address] ROTO ROOTER OPERATOR: CHARLA HERNANDEZ M.D. CLIA NUMBER [id number] [facility] [place]. [id number] URIC [id number] 05:28:57* Test Item Value Reference Range Interpretation Comme [facility] URIC ACID (test code = 2233) 6.7 MG/DL 2.7-6.1 H COMPREHENSIVE METABOLIC [id number] 05:28:57* Test Item Value Reference Range Interpretation Comme [facility] GLUCOSE (test code = 2217) 103 MG/DL 70-99 H BUN (test code = 2208) 9 MG/DL 6-20 CREATININE (test code = 2214) 0.72 MG/DL 0.60-1.30 eGFR (2020 CKD-EPI) (test code = 88975) 106 ML/MIN/1.73 >60 CALC BUN/CREAT (test code = 2235) 13 RATIO 6-28 SODIUM (test code = 2231) 139 MEQ/L 133-146 POTASSIUM (test code = 2227) 4.5 MEQ/L 3.5-5.4 CHLORIDE (test code = 5) [...] code = 2218) 26 U/L 5-40 LIPID [id number] 05:28:57* Test Item Value Reference Range Interpretation [...] SPECIMENS. FOR MOREINFORMATION, SEE CLIENT ANNOUNCEMENT AT [email or web address] RISK RATIO LDL/HDL (test code = 2237) 3.04 RATIO <3.22 HEMOGLOBIN [id number] 02:54:46* Test Item Value Reference Range Interpretation Comme nts HEMOGLOBIN A1c (test code = 81125) 5.6 % 4.2-5.6 CBC W/AUTO DIFF WITH [id number] 01:58:18* Test Item Value Reference Range Interpretation [...] 0.00-0.10 ABS NUCLEATED RBCS (test code = 73394) 0.00 K/UL 0.00-0.11 VITAMIN [id number] 00:00:00* Test Item Value Reference Range Interpretation Comme [facility] VITAMIN B-12 (test code = 2840) 436 PG/ML Robert CaliFOLATE, [id number] 00:00:00* Test Item Value Reference Range Interpretation Comme [facility] HEMATOCRIT (test code = 1004) 28.7 % FOLATE, RBC (test code = 2690) 1185 NG/ML Robert CaliURIC [id number] 00:00:00* Test Item Value Reference Range Interpretation Comme [facility] URIC ACID (test code = 2233) 6.7 MG/DL Robert CaliVITAMIN D, 25 [id number] 00:00:00* Test Item Value Reference Range Interpretation Comme [facility] VITAMIN D, 25 OH (test code = 4958) 13 NG/ML Robert CaliCOMPREHENSIVE METABOLIC [id number] 00:00:00* Test Item Value Reference Range Interpretation Comme [facility] GLUCOSE (test code = 2217) 103 MG/DL BUN (test code = 2208) 9 MG/DL CREATININE (test code = 2214) 0.72 MG/DL eGFR (2020 CKD-EPI) (test code = 45719) 106 ML/MIN/1.73 CALC BUN/CREAT (test code = [...] code = 2219) 26 U/L Robert CaliLIPID [id number] 00:00:00* Test Item Value Reference Range Interpretation Comme [facility] CHOLESTEROL (test code = 2210) 207 MG/DL TRIGLYCERIDES (test code = 2232) 130 MG/DL HDL CHOLESTEROL (test code = 2220) 45 MG/DL CALC LDL CHOL (test code = 2237) 137 MG/DL RISK RATIO LDL/HDL (test cod e = 2238) 3.04 RATIO Robert CaliHEMOGLOBIN [id number] 00:00:00* Test Item Value Reference Range Interpretation Comme nts HEMOGLOBIN A1c (test code = 98085) 5.6 % Robert CaliCBC W/AUTO [id number] 00:00:00* Test Item Value Reference Range Interpretation [...] ABS NUCLEATED RBCS (test cod e = 61711) 0.00 K/UL Robert CaliJAVON, THIRD [id number] 00:00:00* Test Item Value Reference Range Interpretation Comme nts TSH, THIRD GENERATION (test code = 2821) 1.310 UIU/ML Roberteliz CaliVITAMIN [id number] 00:00:00* Test Item Value Reference Range Interpretation Comme evelia VITAMIN B-12 (test code = 2840) 436 PG/ML Robert CaliFOLATE, [id number] 00:00:00* Test Item Value Reference Range Interpretation Comme [facility] HEMATOCRIT (test code = 1004) 28.7 % FOLATE, RBC (test code = 2690) 1185 NG/ML Robert CaliURIC [id number] 00:00:00* Test Item Value Reference Range Interpretation Comme nts URIC ACID (test code = 2233) 6.7 MG/DL Robert CaliVITAMIN D, 25 [id number] 00:00:00* Test Item Value Reference Range Interpretation Comme evelia VITAMIN D, 25 OH (test code = 4958) 13 NG/ML Robert CaliCOMPREHENSIVE METABOLIC [id number] 00:00:00* Test Item Value Reference Range Interpretation Comme nts GLUCOSE (test code = 2217) 103 MG/DL BUN (test code = 2208) 9 MG/DL CREATININE (test code = 2214) 0.72 MG/DL eGFR (2020 CKD-EPI) (test code = 22032) 106 ML/MIN/1.73 CALC BUN/CREAT (test code = [...] code = 2219) 26 U/L Robert CaliLIPID [id number] 00:00:00* Test Item Value Reference Range Interpretation Comme nts CHOLESTEROL (test code = 2210) 207 MG/DL TRIGLYCERIDES (test code = 2232) 130 MG/DL HDL CHOLESTEROL (test code = 2220) 45 MG/DL CALC LDL CHOL (test code = 2237) 137 MG/DL RISK RATIO LDL/HDL (test cod e = 2238) 3.04 RATIO Robert CaliHEMOGLOBIN [id number] 00:00:00* Test Item Value Reference Range Interpretation Comme nts HEMOGLOBIN A1c (test code = 68475) 5.6 % Robert CaliCBC W/AUTO [id number] 00:00:00* Test Item Value Reference Range Interpretation [...] ABS NUCLEATED RBCS (test cod e = 58661) 0.00 K/UL Robert CaliTSH, THIRD [id number] 00:00:00* Test Item Value Reference Range Interpretation Comme nts TSH, THIRD GENERATION (test code = 2821) 1.310 UIU/ML Robert CaliVITAMIN [id number] 00:00:00* Test Item Value Reference Range Interpretation Comme [facility] VITAMIN B-12 (test code = 2840) 436 PG/ML Robert CaliFOLATE, [id number] 00:00:00* Test Item Value Reference Range Interpretation Comme nts HEMATOCRIT (test code = 1004) 28.7 % FOLATE, RBC (test code = 2690) 1185 NG/ML Robert CaliURIC [id number] 00:00:00* Test Item Value Reference Range Interpretation Comme nts URIC ACID (test code = 2233) 6.7 MG/DL Robert CaliVITAMIN D, 25 [id number] 00:00:00* Test Item Value Reference Range Interpretation Comme ev[facility] VITAMIN D, 25 OH (test code = 4958) 13 NG/ML Robert CaliCOMPREHENSIVE METABOLIC [id number] 00:00:00* Test Item Value Reference Range Interpretation Comme nts GLUCOSE (test code = 2217) 103 MG/DL BUN (test code = 2208) 9 MG/DL CREATININE (test code = 2214) 0.72 MG/DL eGFR (2020 CKD-EPI) (test code = 03225) 106 ML/MIN/1.73 CALC BUN/CREAT (test code = [...] code = 2219) 26 U/L Robert CaliLIPID [id number] 00:00:00* Test Item Value Reference Range Interpretation Comme nts CHOLESTEROL (test code = 2210) 207 MG/DL TRIGLYCERIDES (test code = 2232) 130 MG/DL HDL CHOLESTEROL (test code = 2220) 45 MG/DL CALC LDL CHOL (test code = 2237) 137 MG/DL RISK RATIO LDL/HDL (test cod e = 2238) 3.04 RATIO Robert CaliHEMOGLOBIN [id number] 00:00:00* Test Item Value Reference Range Interpretation Comme nts HEMOGLOBIN A1c (test code = 99245) 5.6 % Robert CaliCBC W/AUTO [id number] 00:00:00* Test Item Value Reference Range Interpretation [...] ABS NUCLEATED RBCS (test cod e = 52984) 0.00 K/UL Robert CaliTS, THIRD [id number] 00:00:00* Test Item Value Reference Range Interpretation Comme nts TSH, THIRD GENERATION (test code = 2821) 1.310 UIU/ML Robert CaliVITAMIN [id number] 00:00:00* Test Item Value Reference Range Interpretation Comme nts VITAMIN B-12 (test code = 2840) 436 PG/ML Robert CaliFOLATE, [id number] 00:00:00* Test Item Value Reference Range Interpretation Comme nts HEMATOCRIT (test code = 1004) 28.7 % FOLATE, RBC (test code = 2690) 1185 NG/ML Robert CaliURIC [id number] 00:00:00* Test Item Value Reference Range Interpretation Comme [facility] URIC ACID (test code = 2233) 6.7 MG/DL Robert CaliVITAMIN D, 25 [id number] 00:00:00* Test Item Value Reference Range Interpretation Comme [facility] VITAMIN D, 25 OH (test code = 4958) 13 NG/ML Robert CaliCOMPREHENSIVE METABOLIC [id number] 00:00:00* Test Item Value Reference Range Interpretation Comme nts GLUCOSE (test code = 2217) 103 MG/DL BUN (test code = 2208) 9 MG/DL CREATININE (test code = 2214) 0.72 MG/DL eGFR (2020 CKD-EPI) (test code = 77148) 106 ML/MIN/1.73 CALC BUN/CREAT (test code = [...] (test code = 2219) 26 U/L Robert aCliLIPID [id number] 00:00:00* Test Item Value Reference Range Interpretation Comme nts CHOLESTEROL (test code = 2210) 207 MG/DL TRIGLYCERIDES (test code = 2232) 130 MG/DL HDL CHOLESTEROL (test code = 2220) 45 MG/DL CALC LDL CHOL (test code = 2237) 137 MG/DL RISK RATIO LDL/HDL (test cod e = 2238) 3.04 RATIO Robert CaliHEMOGLOBIN [id number] 00:00:00* Test Item Value Reference Range Interpretation Comme nts HEMOGLOBIN A1c (test code = 43445) 5.6 % Robert CaliCBC W/AUTO [id number] 00:00:00* Test Item Value Reference Range Interpretation [...] ABS NUCLEATED RBCS (test cod e = 66777) 0.00 K/UL Robert CaliJAVON, THIRD [id number] 00:00:00* Test Item Value Reference Range Interpretation Comme [facility] TSH, THIRD GENERATION (test code = 2821) 1.310 UIU/ML Robert CaliVITAMIN [id number] 00:00:00* Test Item Value Reference Range Interpretation Comme [facility] VITAMIN B-12 (test code = 2840) 436 PG/ML Robert CaliFOLATE, [id number] 00:00:00* Test Item Value Reference Range Interpretation Comme [facility] HEMATOCRIT (test code = 1004) 28.7 % FOLATE, RBC (test code = 2690) 1185 NG/ML Robert CaliURIC [id number] 00:00:00* Test Item Value Reference Range Interpretation Comme [facility] URIC ACID (test code = 2233) 6.7 MG/DL Robert CaliVITAMIN D, 25 [id number] 00:00:00* Test Item Value Reference Range Interpretation Comme [facility] VITAMIN D, 25 OH (test code = 4958) 13 NG/ML Robert CaliCOMPREHENSIVE METABOLIC [id number] 00:00:00* Test Item Value Reference Range Interpretation Comme ev[facility] GLUCOSE (test code = 2217) 103 MG/DL BUN (test code = 2208) 9 MG/DL CREATININE (test code = 2214) 0.72 MG/DL eGFR (2020 CKD-EPI) (test code = 69615) 106 ML/MIN/1.73 CALC BUN/CREAT (test code = [...] code = 2219) 26 U/L Robert CaliLIPID [id number] 00:00:00* Test Item Value Reference Range Interpretation Comme nts CHOLESTEROL (test code = 2210) 207 MG/DL TRIGLYCERIDES (test code = 2232) 130 MG/DL HDL CHOLESTEROL (test code = 2220) 45 MG/DL CALC LDL CHOL (test code = 2237) 137 MG/DL RISK RATIO LDL/HDL (test cod e = 2238) 3.04 RATIO Robert CaliHEMOGLOBIN [id number] 00:00:00* Test Item Value Reference Range Interpretation Comme nts HEMOGLOBIN A1c (test code = 67005) 5.6 % Robert CaliCBC W/AUTO [id number] 00:00:00* Test Item Value Reference Range Interpretation [...] ABS NUCLEATED RBCS (test cod e = 47119) 0.00 K/UL Robert Jimenez, THIRD [id number] 00:00:00* Test Item Value Reference Range Interpretation Comme nts TSH, THIRD GENERATION (test code = 2821) 1.310 UIU/ML Robert [id number] 20:05:22* Test Item Value Reference Range Interpretation Comme nts [place] (test code = 1930327101) 1.1 mmol/L 0.6-1.2 ZAINAB (test code = ZAINAB) Toxic Range: ? Greater than 1.2 mmol/L Lab Interpretation (test code = 85026-7) [facility]2023-01-04 20:05:22* Test Item Value Reference Range Interpretation Comme nts [place] (test code = 8770876223) 1.1 mmol/L 0.6-1.2 ZAINAB (test code = ZAINAB) Toxic Range: ? Greater than 1.2 mmol/L Lab Interpretation (test code = 78972-0) [facility]2023-01-04 20:05:22* Test Item Value Reference Range Interpretation Comme nts [place] (test code = 1288664201) 1.1 mmol/L 0.6-1.2 ZAINAB (test code = ZAINAB) Toxic Range: ? Greater than 1.2 mmol/L Lab Interpretation (test code = 58100-5) [facility]2023-01-04 20:05:22* Test Item Value Reference Range Interpretation Comme nts [place] (test code = 7553468123) 1.1 mmol/L 0.6-1.2 ZAINAB (test code = ZAINAB) Toxic Range: ? Greater than 1.2 mmol/L Lab Interpretation (test code = 24138-4) [facility]2023-01-04 20:05:22* Test Item Value Reference Range Interpretation Comme nts [place] (test code = 8173325449) 1.1 mmol/L 0.6-1.2 ZAINAB (test code = ZAINAB) Toxic Range: ? Greater than 1.2 mmol/L Lab Interpretation (test code = 16500-5) [facility]2023-01-04 20:05:22* Test Item Value Reference Range Interpretation Comme nts [place] (test code = 5866923767) 1.1 mmol/L 0.6-1.2 ZAINAB (test code = ZAINAB) Toxic Range: ? Greater than 1.2 mmol/L Lab Interpretation (test code = 54504-2) [facility]2023-01-04 20:05:22* Test Item Value Reference Range Interpretation Comme nts [place] (test code = 0034496205) 1.1 mmol/L 0.6-1.2 ZAINAB (test code = ZAINAB) Toxic Range: ? Greater than 1.2 mmol/L Lab Interpretation (test code = 68324-2) [facility]2023-01-04 20:05:22* Test Item Value Reference Range Interpretation Comme nts [place] (test code = 4098622736) 1.1 mmol/L 0.6-1.2 ZAINAB (test code = ZAINAB) Toxic Range: ? Greater than 1.2 mmol/L Lab Interpretation (test code = 52701-5) [facility]2023-01-04 20:05:22* Test Item Value Reference Range Interpretation Comme nts [place] (test code = 3618747962) 1.1 mmol/L 0.6-1.2 ZAINAB (test code = ZAINAB) Toxic Range: ? Greater than 1.2 mmol/L Lab Interpretation (test code = 54975-6) [facility]2023-01-04 20:05:22* Test Item Value Reference Range Interpretation Comme nts [place] (test code = 5218175358) 1.1 mmol/L 0.6-1.2 ZAINAB (test code = ZAINAB) Toxic Range: ? Greater than 1.2 mmol/L Lab Interpretation (test code = 94530-6) [facility] [id number] 00:00:00* Test Item Value Reference Range Interpretation Comme nts VITAMIN D, 25 OH (test code = 4958) 17 NG/ML Robert Ambrose [facility] W/AUTO [id number] 00:00:00* Test Item Value Reference Range Interpretation [...] ABS NUCLEATED RBCS (test cod e = 72572) 0.00 K/UL Robert CaliHEMOGLOBIN [id number] 00:00:00* Test Item Value Reference Range Interpretation Comme nts HEMOGLOBIN A1c (test code = 06795) 5.5 % Robert CaliLIPID [id number] 00:00:00* Test Item Value Reference Range Interpretation Comme nts CHOLESTEROL (test code = 2210) 181 MG/DL TRIGLYCERIDES (test code = 2232) 81 MG/DL HDL CHOLESTEROL (test code = 2220) 46 MG/DL CALC LDL CHOL (test code = 2237) 117 MG/DL RISK RATIO LDL/HDL (test cod e = 2238) 2.54 RATIO Robert CaliCOMPREHENSIVE METABOLIC [id number] 00:00:00* Test Item Value Reference Range Interpretation Comme nts GLUCOSE (test code = 2217) 102 MG/DL BUN (test code = 2208) 10 MG/DL CREATININE (test code = 2214) 0.67 MG/DL eGFR AMER. (test cod e = 91563) 126 ML/MIN/1.73 eGFR NON- AMER. (test code = 37662) 108 ML/MIN/1.73 CALC BUN/CREAT (test code = [...] 2203) 127 U/L AST (test code = 2218) 18 U/L ALT (test code = 2219) 18 U/L Robert [id number] 00:00:00* Test Item Value Reference Range Interpretation Comme [facility] TSH, THIRD GENERATION (test code = 2821) 1.140 UIU/ML Robert Ambrose VirajVITAMIN D, 25 [id number] 00:00:00* Test Item Value Reference Range Interpretation Comme [facility] VITAMIN D, 25 OH (test code = 4958) 17 NG/ML Robert Ambrose VirajCBC W/AUTO [id number] 00:00:00* Test Item Value Reference Range Interpretation [...] ABS NUCLEATED RBCS (test cod e = 21650) 0.00 K/UL Robert CaliHEMOGLOBIN [id number] 00:00:00* Test Item Value Reference Range Interpretation Comme nts HEMOGLOBIN A1c (test code = 16097) 5.5 % Robert CaliLIPID [id number] 00:00:00* Test Item Value Reference Range Interpretation Comme nts CHOLESTEROL (test code = 2210) 181 MG/DL TRIGLYCERIDES (test code = 2232) 81 MG/DL HDL CHOLESTEROL (test code = 2220) 46 MG/DL CALC LDL CHOL (test code = 2237) 117 MG/DL RISK RATIO LDL/HDL (test cod e = 2238) 2.54 RATIO Robert CaliCOMPREHENSIVE METABOLIC [id number] 00:00:00* Test Item Value Reference Range Interpretation Comme nts GLUCOSE (test code = 2217) 102 MG/DL BUN (test code = 2208) 10 MG/DL CREATININE (test code = 2214) 0.67 MG/DL eGFR AMER. (test cod e = 34784) 126 ML/MIN/1.73 eGFR NON- AMER. (test code = 46729) 108 ML/MIN/1.73 CALC BUN/CREAT (test code = [...] 1.4 RATIO BILIRUBIN, TOTAL (test code = 7) <0.2 MG/DL ALKALINE PHOSPHATASE (test code = 2203) 127 U/L AST (test code = 2218) 18 U/L ALT (test code = 9) 18 U/L Robert [id number] 00:00:00* Test Item Value Reference Range Interpretation Comme [facility] TSH, THIRD GENERATION (test code = 2821) 1.140 UIU/ML Robert CaliVITAMIN D, 25 [id number] 00:00:00* Test Item Value Reference Range Interpretation Comme [facility] VITAMIN D, 25 OH (test code = 4958) 17 NG/ML Robert CaliCBC W/AUTO [id number] 00:00:00* Test Item Value Reference Range Interpretation [...] ABS NUCLEATED RBCS (test cod e = 94688) 0.00 K/UL Robert CaliHEMOGLOBIN [id number] 00:00:00* Test Item Value Reference Range Interpretation Comme nts HEMOGLOBIN A1c (test code = 49469) 5.5 % Robert CaliLIPID [id number] 00:00:00* Test Item Value Reference Range Interpretation Comme nts CHOLESTEROL (test code = 2210) 181 MG/DL TRIGLYCERIDES (test code = 2232) 81 MG/DL HDL CHOLESTEROL (test code = 2220) 46 MG/DL CALC LDL CHOL (test code = 2237) 117 MG/DL RISK RATIO LDL/HDL (test cod e = 2238) 2.54 RATIO Robert CaliCOMPREHENSIVE METABOLIC [id number] 00:00:00* Test Item Value Reference Range Interpretation Comme nts GLUCOSE (test code = 2217) 102 MG/DL BUN (test code = 2208) 10 MG/DL CREATININE (test code = 2214) 0.67 MG/DL eGFR AMER. (test cod e = 85027) 126 ML/MIN/1.73 eGFR NON- AMER. (test code = 57339) 108 ML/MIN/1.73 CALC BUN/CREAT (test code = [...] (test code = 2219) 18 U/L Robert [id number] 00:00:00* Test Item Value Reference Range Interpretation Comme evelia TSH, THIRD GENERATION (test code = 2821) 1.140 UIU/ML Robert CaliVITAMIN D, 25 [id number] 00:00:00* Test Item Value Reference Range Interpretation Comme nts VITAMIN D, 25 OH (test code = 4958) 17 NG/ML Robert CaliCBC W/AUTO [id number] 00:00:00* Test Item Value Reference Range Interpretation [...] ABS NUCLEATED RBCS (test cod e = 08143) 0.00 K/UL Robert CaliHEMOGLOBIN [id number] 00:00:00* Test Item Value Reference Range Interpretation Comme evelia HEMOGLOBIN A1c (test code = 75277) 5.5 % Robert CaliLIPID [id number] 00:00:00* Test Item Value Reference Range Interpretation Comme nts CHOLESTEROL (test code = 2210) 181 MG/DL TRIGLYCERIDES (test code = 2232) 81 MG/DL HDL CHOLESTEROL (test code = 2220) 46 MG/DL CALC LDL CHOL (test code = 2237) 117 MG/DL RISK RATIO LDL/HDL (test cod e = 2238) 2.54 RATIO Robert CaliCOMPREHENSIVE METABOLIC [id number] 00:00:00* Test Item Value Reference Range Interpretation Comme nts GLUCOSE (test code = 2217) 102 MG/DL BUN (test code = 2208) 10 MG/DL CREATININE (test code = 2214) 0.67 MG/DL eGFR AMER. (test cod e = 81403) 126 ML/MIN/1.73 eGFR NON- AMER. (test code = 44725) 108 ML/MIN/1.73 CALC BUN/CREAT (test code = [...] (test code = 2219) 18 U/L Robert [id number] 00:00:00* Test Item Value Reference Range Interpretation Comme [facility] TSH, THIRD GENERATION (test code = 2821) 1.140 UIU/ML Robert CaliVITAMIN D, 25 [id number] 00:00:00* Test Item Value Reference Range Interpretation Comme [facility] VITAMIN D, 25 OH (test code = 4958) 17 NG/ML Robert CaliCBC W/AUTO [id number] 00:00:00* Test Item Value Reference Range Interpretation [...] ABS NUCLEATED RBCS (test cod e = 90589) 0.00 K/UL Robert CaliHEMOGLOBIN [id number] 00:00:00* Test Item Value Reference Range Interpretation Comme nts HEMOGLOBIN A1c (test code = 83852) 5.5 % Robert CaliLIPID [id number] 00:00:00* Test Item Value Reference Range Interpretation Comme nts CHOLESTEROL (test code = 2210) 181 MG/DL TRIGLYCERIDES (test code = 2232) 81 MG/DL HDL CHOLESTEROL (test code = 2220) 46 MG/DL CALC LDL CHOL (test code = 2237) 117 MG/DL RISK RATIO LDL/HDL (test cod e = 2238) 2.54 RATIO Robert CaliCOMPREHENSIVE METABOLIC [id number] 00:00:00* Test Item Value Reference Range Interpretation Comme nts GLUCOSE (test code = 2217) 102 MG/DL BUN (test code = 2208) 10 MG/DL CREATININE (test code = 2214) 0.67 MG/DL eGFR AMER. (test cod e = 70705) 126 ML/MIN/1.73 eGFR NON- AMER. (test code = 30483) 108 ML/MIN/1.73 CALC BUN/CREAT (test code = [...] (test code = 2219) 18 U/L Robert [id number] 00:00:00* Test Item Value Reference Range Interpretation Comme [facility] TSH, THIRD GENERATION (test code = 2821) 1.140 UIU/ML Robert CaliLIPID PROFILE (CORONARY RISK)2018-07-20 07:27:00* Test Item Value Reference Range Interpretation Comme evelia TRIGLYCERIDES (test code = TRIG) 143 MG/DL [...] mg/dL VERY HIGH.........>/= 190 mg/dL Comments to Fiscal Manager: ADD TO AM LABSLIPID PROFILE (CORONARY [...] code = LDL) MG/DL 0-99 Comments to Fiscal Manager: ADD TO AM LABSPROTHROMBIN [id number] 06:24:00* Test Item Value Reference Range Interpretation [...] systemic embolism. 3.0 - 4.5 Comments to Fiscal Manager: NURSE WILL BRING SPECIMEN TO LABPTT ACTIVATED 2018-07-20 06:24:00* Test Item Value Reference Range Interpretation Comme nts PTT ACTIVATED (test code = APTT) 29.3 SECONDS 22.0-33.0 N Comments to Fiscal Manager: NURSE WILL BRING SPECIMEN TO LABBASIC [...] CA) 9.6 MG/DL 8.4-10.2 N Comments to Fiscal Manager: NURSE WILL BRING SPECIMEN TO LAB Comments to Fiscal Manager: NURSE WILL BRING SPECIMEN TO [id number] 06:13:00* Test Item Value Reference Range Interpretation Comme nts MAGNESIUM (test code = MAG) 2.2 MG/DL 1.6-2.3 N Comments to Fiscal Manager: NURSE WILL BRING SPECIMEN TO LAB Comments to Fiscal Manager: NURSE WILL BRING SPECIMEN TO LABCBC W/AUTO [id number] 06:02:00 * Test Item Value Reference Range [...]
[2024-02-24 11:36] LABS: Absolute Eosinophils 0.2 K/uL (0-0.5); Absolute Lymphocytes (CBC) 1.3 K/uL (0.7-4.9); Absolute Monocytes 0.3 K/uL (0.1-1.3); Absolute Neutrophil 5.5 K/uL (1.8-8.0); Basophils % 0.5 % (0-1.3); Eosinophils % 2.6 % (0-4.4); Hematocrit 35.7 % (36.0-45.0); Hemoglobin 11.6 g/dL (12.0-15.0); Lymphocytes % 17.8 % (15.3-44.8); MCH 25.3 pg (27.0-35.0); MCHC 32.5 g/dL (32.0-36.0); MCV 77.9 fL (80-100); MPV 8.8 fL (7.6-11.3); Monocytes % 4.1 % (3.3-12.3); Platelets 219 thou/uL (152-406); RBC Red Blood Cell Count 4.58 M/uL (3.86-4.86); Red Cell Distribution Width 20.5 % (12.1-15.2)
[2024-02-24 11:38] LABS: PT Prothrombin Time 11.4 SECONDS (9.4-12.5); Protime INR 1.02
[2024-02-24 11:50] LABS: ALT/SGPT 30 U/L (13-56); AST/SGOT 13 U/L (15-37); Albumin 3.5 g/dL (3.4-5.0); Alkaline Phosphatase 151 U/L (45-117); Anion Gap 10.4 mEq/L (5.0-15.0); BUN Blood Urea Nitrogen 12 mg/dL (7-18); Bicarbonate 23 mEq/L (21-32); Bilirubin Total 0.3 mg/dL (0.2-1.0); Globulin 3.4 g/dL (2.3-3.5); Glomerular Filtration Rate 104 ml/min (=/>90); Glucose Level 187 mg/dL (74-106); NT PRO-BNP 13 pg/mL (<125); Potassium 3.4 mEq/L (3.5-5.1); Protein, Total 6.9 g/dL (6.4-8.2); Sodium Level 137 mEq/L (136-145); Troponin High Sensitivity 3.5 pg/mL (<58.9)
[2024-02-24 11:51] LABS: Bilirubin Direct < 0.2 mg/dL (0-0.2); Bilirubin Indirect, Calculated 0.1 mg/dL (0.2-0.8)
[2024-02-24 12:03] LABS: Specific Gravity 1.019 (1.005-1.030)
[2024-02-24 12:04] LABS: Specific Gravity 1.019 (1.005-1.030); Sqamous Epithelial <5 /HPF (None Seen); Urine Bacteria None Seen /HPF (<20); Urine Bilirubin NEGATIVE (Negative); Urine Blood 2+ (Negative); Urine Clarity Clear (Clear); Urine Color Light-Yellow (Yellow); Urine Culture Reflex Order NOT NEEDED; Urine Glucose NEGATIVE (Negative); Urine Ketones NEGATIVE (Negative); Urine Microscopic Reflex YN ORDER UMIC; Urine Mucus Slight /HPF (None Seen); Urine Nitrite NEGATIVE (Negative); Urine Protein NEGATIVE (Negative); Urine Urobilinogen Normal (Normal); Urine WBC <5 /HPF (<5)
[2024-02-24 12:05] LABS: Barbiturates NEGATIVE (NEGATIVE); Benzodiazepines NEGATIVE (NEGATIVE); Cocaine NEGATIVE (NEGATIVE); METHAMPHETAM NEGATIVE (NEGATIVE); Methadone NEGATIVE (NEGATIVE); Opiates NEGATIVE (NEGATIVE); Phencyclidine NEGATIVE (NEGATIVE); THC Cannibis NEGATIVE (NEGATIVE)
--- NOTE | 2024-02-24 12:09 | RAD REPORT ---
EXAMINATION: ONE VIEW CHEST XR CLINICAL INDICATION: Female, 48 years old.,PALPITATIONS TECHNIQUE: Frontal chest projection is submitted. Examination is limited by patient positioning and t echnique. COMPARISON: 02/08/2024 FINDINGS: Streaky opacities in the right perihilar region could reflect superimposition of vascular structures. The lungs are again hypoinflated but otherwise clear. No pneumothorax or sizable effusion. The heart is normal in size. Mediastinal contours are unremarkable. IMPRESSION: Mild central vascular congestion versus superimposition of central vascular structures.
[2024-02-24] MEDS ORDERED: LABETALOL 20 MG/4ML SYRINGE IV ONE (12:19)
[2024-02-24 13:19] LABS: Anisocytosis 1+; Blood Morphology Comment NOTED (NOT SEEN); Platelet Estimate ADEQ; White Blood Cell Scan OK (OK)
[2024-02-24] MEDS ORDERED: KETOROLAC 30 MG/ML INJ ONE (13:26)
--- NOTE | 2024-02-24 14:52 | RAD REPORT ---
EXAM: CT Head Brain Wo Cont HISTORY: htn, pressure COMPARISON: 02/13/2024 TECHNIQUE: Multiple contiguous axial images were obtained for a CT of the brain without contrast. Sag ittal and coronal reformats were performed. One or more of the following dose reduction techniques were used: Automated exposure control, adjus tment of the mA and kV according to patient size, and iterative reconstruction. Unless otherwise specified, incidental findings do not require dedicated imaging follow-up. FINDINGS: No evidence of hydrocephalus, intracranial hemorrhage, or extra-axial fluid collection. The brain is normal in morphology. The calvarium is intact. The visualized paranasal sinuses and mastoid air cells are essentially clear . IMPRESSION: No evidence of acute intracranial abnormality.
--- NOTE | 2024-02-24 15:00 | RAD REPORT ---
EXAM: CT Chest For Pe Angio TECHNIQUE: CT angiogram of the chest was performed following intravenous contrast administration, inc luding sagittal and coronal as well as maximum intensity projection reformats. One or more of the following dose reduction techniques were used: Automated exposure control, adjustment of the mA and k V according to patient size, and iterative reconstruction. Unless otherwise specified, incidental findings do not require dedicated imaging follow-up. INDICATION: [facility] MAIN Palpitations;SOB Bed Name: 17 Y COMPARISON: 03/10/2023 chest. Chest radiograph of earlier the same day . FINDINGS: LINES/TUBES: None. PULMONARY ARTERIES: Main pulmonary arteries are normal in caliber. No filling defects within the pul monary arteries to suggest pulmonary embolus. LUNGS AND AIRWAYS: The lungs and central airways are normal without focal abnormality. PLEURA: No effusion or pneumothorax. HEART AND MEDIASTINUM: The visualized thyroid gland is normal. No mediastinal, hilar, or axillary lym phadenopathy. Heart is unremarkable. No pericardial effusion. SOFT TISSUES AND BONES: No acute osseous abnormality. No significant soft tissue finding. UPPER ABDOMEN: Unremarkable. IMPRESSION: No evidence of acute central pulmonary emboli. No suspicious intrathoracic findings..
--- NOTE | 2024-02-24 16:21 | ER ---
Nurse's Notes [facility] Name: Shivani Lagunas Age: 48 yrs Sex: Female : 1975 Arrival Date: 02/24/2024 Time: 10:42 Bed 17 Private MD: TANNER PEREZ Diagnosis: Palpitations;Headache;Chest pain, unspecified Presentation: 02/23 10:59 Chief complaint: Patient states: felt her heart beating up into her chest an throat, iw and also feels "empty headed" ,started this morning. Coronavirus screen: At this time, the client does not indicate any symptoms associated with coronavirus-19. Ebola Screen: No symptoms or risks identified at this time. Initial Sepsis Screen: Does the patient meet any 2 criteria? No. Patient's initial sepsis screen is negative. Does the patient have a suspected source of infection? No. Patient's initial sepsis screen is negative. Risk Assessment: Do you want to hurt yourself or someone else? Patient reports desire/thoughts of hurting themselves or someone else. Provider notified. Onset of symptoms was February 24, 2024. 10:59 Method Of Arrival: Ambulatory iw 10:59 Acuity: ALICIA 3 iw Triage Assessment: 16:31 Headache History: The patient has had previous headaches and this one is similar to me1 previous episodes. Pain: Also complains of. 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 - Infectious Disease History:: Denies. - Social history:: Smoking status: Patient denies any tobacco usage or history of. Screenin:57 [facility] ED Fall Risk Assessment (Adult) History of falling in the last 3 months, db including since admission No falls in past 3 months (0 pts) Confusion or Disorientation No (0 pts) Intoxicated or Sedated No (0 pts) Impaired Gait No (0 pts) Mobility Assist Device Used No (0 pt) Altered Elimination No (0 pt) Score/Fall Risk Level 0 - 2 = Low Risk Oriented to surroundings, Maintained a safe environment. Abuse screen: Denies threats or abuse. Denies injuries from another. Nutritional screening: No deficits noted. Tuberculosis screening: No symptoms or risk factors identified. Assessment: 11:00 Reassessment: Patient appears in no apparent distress at this time. Patient and/or db family updated on plan of care and expected duration. Pain level reassessed. Patient is alert, oriented x 3, equal unlabored respirations, skin warm/dry/pink. General: Appears in no apparent distress. comfortable, Behavior is calm, cooperative. Pain: Complains of pain in head. Neuro: Level of Consciousness is awake, alert, obeys commands, Oriented to person, place, time, situation. Cardiovascular: Reports palpitations, Capillary refill < 3 seconds Patient's skin is warm and dry. Respiratory: Airway is patent Respiratory effort is even, unlabored, Respiratory pattern is regular, symmetrical. 12:06 Reassessment: Patient appears in no apparent distress at this time. Patient and/or db family updated on plan of care and expected duration. Pain level reassessed. Patient is alert, oriented x 3, equal unlabored respirations, skin warm/dry/pink. General: Appears in no apparent distress. comfortable. 12:10 General: Appears comfortable, well groomed, well developed, well nourished, Behavior is me1 calm, cooperative, appropriate for age, Reports felt her heart beating up into her chest an throat, and also feels "empty headed" ,started this morning. Pain: Complains of pain in head Pain does not radiate. Pain currently is 4 out of 10 on a pain scale. Quality of pain is described as aching, Pain began gradually, Is continuous. Neuro: Level of Consciousness is awake, alert, obeys commands, Oriented to person, place, time, situation, Appropriate for age. Cardiovascular: Patient's skin is warm and dry. Cardiovascular: Reports palpitations. Respiratory: Airway is patent Respiratory effort is even, unlabored, Respiratory pattern is regular, symmetrical. GI: No signs and/or symptoms were reported involving the gastrointestinal system. GI: No signs and/or symptoms were reported involving the gastrointestinal system. : No signs and/or symptoms were reported regarding the genitourinary system. EENT: No signs and/or symptoms were reported regarding the EENT system. Derm: Skin is intact, is healthy with good turgor, Skin is pink, warm \\T\\ dry. Musculoskeletal: No signs and/or symptoms reported regarding the musculoskeletal system. Vital Signs: 10:59 BP 152 / 58; Pulse 108; Resp 18; Temp 97.8; Pulse Ox 97% on R/A; Weight 97.52 kg; iw Height 5 ft. 6 in. ; 11:00 BP 136 / 72; Pulse 94; Resp 16; Pulse Ox 97% on R/A; db 11:35 BP 162 / 80; Pulse 99; Resp 16; Pulse Ox 97% on R/A; db 12:00 BP 143 / 80; Pulse 96; Resp 16; Pulse Ox 97% ; me1 13:00 BP 139 / 73; Pulse 82; Resp 17; Pulse Ox 98% ; me1 14:00 BP 133 / 70; Pulse 94; Resp 17; Pulse Ox 100% ; me1 15:00 BP 131 / 53; Pulse 86; Resp 16; Pulse Ox 96% ; me1 16:00 BP 136 / 68; Pulse 92; Resp 19; Temp 98.5; Pulse Ox 98% ; me1 10:59 Body Mass Index 34.70 (97.52 kg, 167.64 cm) iw ED Course: 10:43 Patient arrived in ED. am2 10:43 TANNER PEREZ is Private Physician. am2 10:46 [facility]ume [facility] cp 10:46 Jean Carlos Andrews MD is Attending Physician. cp 11:01 Triage completed. iw 11:02 Arm band placed on. iw 11:07 Autumn Peres, RN is Primary Nurse. db 11:10 Initial lab(s) drawn, by nm, sent to lab. EKG done. Inserted saline lock: 20 gauge in db right antecubital area, using aseptic technique. Blood collected. Flushed with 10 mL NS. 11:33 XRAY Chest (1 view) In Process Unspecified. EDMS 11:38 Patient has correct armband on for positive identification. Bed in low position. Call db light in reach. Side rails up X 1. Client placed on continuous cardiac and pulse oximetry monitoring. NIBP monitoring applied. teletypesetter monitor on. Pulse ox on. NIBP on. Pillow given. 12:00 Provided Education on: POC. Verbalized understanding.. me1 12:16 Tamar Judd, RN is Primary Nurse. me1 13:38 CT Head Brain wo Cont In Process Unspecified. EDMS 13:46 CT Chest For PE Angio In Process Unspecified. EDMS 15:33 Troponin HS Sent. me1 15:33 Repeat lab(s) drawn. by me, sent to lab. me1 16:30 No provider procedures requiring assistance completed. IV discontinued, intact, me1 bleeding controlled, No redness/swelling at site. Pressure dressing applied. Administered Medications: 11:57 CANCELLED (Physician Discretion): [id number] mg IV at calculated rate once over 2 cp mins; For SBP greater than 140. Hold for HR less than 60, notify provider. 12:23 Drug: Labetalol IV 10 mg IV at calculated rate once Route: IV; Rate: calculated rate; me1 Site: right antecubital; 12:25 Follow up: Response: No adverse reaction; Blood pressure is lowered me1 13:39 Drug: Ketorolac IVP 15 mg IVP once Route: IVP; Site: right antecubital; me1 15:29 Follow up: Response: No adverse reaction; Pain is decreased me1 Medication: 12:05 VIS not applicable for this client. db Outcome: 16:21 Discharge ordered by MD. cp 16:30 Discharged to home ambulatory, me1 16:30 Condition: stable 16:30 Discharge instructions given to patient, Instructed on discharge instructions, follow up and referral plans. Demonstrated understanding of instructions, follow-up care, 16:33 Patient left the ED. me1 Signatures: Dispatcher [employer] Mayelin Regalado RN RN Bal Sagastume PA PA cp Emma Keen am2 Autumn Peres RN RN db Tamar Judd, RN RN me1 Corrections: (The following items were deleted from the chart) 16:31 10:59 Chief complaint: Patient states: felt her heart beating up into her chest an me1 throat, and also feels "empty headed" ,started this morning iw 16:34 13:08 Response: No adverse reaction; Blood pressure is lowered me1 me1 16:35 16:00 BP 136 / 68; Pulse 92bpm; Resp 19bpm; Pulse Ox 98%; me1 me1
--- NOTE | 2024-02-24 16:21 | EDPHYS ---
Physician Documentation [facility] Name: Shivani Lagunas Age: 48 yrs Sex: Female : 1975 Arrival Date: 02/24/2024 Time: 10:42 Bed 17 Private MD: TANNER PEREZ ED Physician Jean Carlos Andrews HPI: 02/23 11:15 This 48 yrs old Female presents to ER via Ambulatory with complaints of cp Palpitations, Headache. 11:15 The patient presents with a history of heart racing. Context: The symptoms occur at cp rest. Onset: The symptoms/episode began/occurred today. Duration: The patient or guardian reports a single episode, that is still ongoing. Associated signs and symptoms: Pertinent positives: lightheadedness, head pressure, Pertinent negatives: cough, fever, syncope. Severity of symptoms: in the emergency department the symptoms are unchanged despite home interventions. 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 - Infectious Disease History:: Denies. - Social history:: Smoking status: Patient denies any tobacco usage or history of. ROS: 11:20 Constitutional: Negative for body aches, chills, fever, poor PO intake, cp 11:20 Eyes: Negative for injury, pain, redness, and discharge, cp 11:20 ENT: Negative for ear pain, sore throat, difficulty swallowing, difficulty handling secretions, 11:20 Cardiovascular: Positive for palpitations, Negative for edema, 11:20 Respiratory: Negative for cough, shortness of breath, wheezing, 11:20 Abdomen/GI: Negative for abdominal pain, vomiting, diarrhea, constipation, 11:20 Neuro: Negative for altered mental status, numbness, syncope, weakness, 11:20 All other systems are negative, Exam: 11:19 ECG was reviewed by the Attending Physician. cp 11:25 Constitutional: The patient appears in no acute distress, alert, awake, cp non-diaphoretic, non-toxic, well developed, well nourished, uncomfortable, 11:25 Head/Face: Normocephalic, atraumatic. cp 11:25 Eyes: Periorbital structures: appear normal, Conjunctiva: normal, no exudate, no injection, Sclera: no appreciated abnormality, Lids and lashes: appear normal, bilaterally, 11:25 ENT: External ear(s): are unremarkable, Nose: is normal, Mouth: Lips: moist, Oral mucosa: moist, Posterior pharynx: Airway: no evidence of obstruction, patent, 11:25 Neck: ROM/movement: is normal, is supple, without pain, no range of motions limitations, no meningismus, 11:25 Chest/axilla: Inspection: normal, :25 Cardiovascular: Rate: tachycardic, Rhythm: regular, Edema: is not appreciated, JVD: is not appreciated, 11:25 Respiratory: the patient does not display signs of respiratory distress, Respirations: labored breathing, is not present, shallow respirations, that is mild, Breath sounds: are clear throughout, no decreased breath sounds, no stridor, no wheezing, 11:25 Abdomen/GI: Inspection: abdomen appears normal, Palpation: abdomen is soft and non-tender, in all quadrants, 11:25 Neuro: Orientation: to person, place \T\ time. Mentation: is normal, Motor: moves all fours, no focal deficits, Sensation: is normal, Vital Signs: 10:59 BP 152 / 58; Pulse 108; Resp 18; Temp 97.8; Pulse Ox 97% on R/A; Weight 97.52 kg; iw Height 5 ft. 6 in. ; 11:00 BP 136 / 72; Pulse 94; Resp 16; Pulse Ox 97% on R/A; db 11:35 BP 162 / 80; Pulse 99; Resp 16; Pulse Ox 97% on R/A; db 12:00 BP 143 / 80; Pulse 96; Resp 16; Pulse Ox 97% ; me1 13:00 BP 139 / 73; Pulse 82; Resp 17; Pulse Ox 98% ; me1 14:00 BP 133 / 70; Pulse 94; Resp 17; Pulse Ox 100% ; me1 15:00 BP 131 / 53; Pulse 86; Resp 16; Pulse Ox 96% ; me1 16:00 BP 136 / 68; Pulse 92; Resp 19; Temp 98.5; Pulse Ox 98% ; me1 10:59 Body Mass Index 34.70 (97.52 kg, 167.64 cm) iw MDM: 10:54 Medical Screening Exam initiated cp 16:20 Data reviewed: vital signs, nurses notes, lab test result(s), EKG, radiologic studies, cp CT scan, plain films, and as a result, I will discharge patient. 16:20 Differential diagnosis: arrythmia, dehydration, stress disorder, anxiety, cardiac cp arrhythmia, pulmonary embolism. I considered the following discharge prescriptions or medication management in the emergency department Medications were administered in the Emergency Department. See MAR. Independent interpretation of the following test(s) in the Emergency Department EKG: See my EKG interpretation above. Care significantly affected by the following chronic conditions: Hypertension, Congestive Heart Failure. Counseling: I had a detailed discussion with the patient and/or guardian regarding the historical points, exam findings, and any diagnostic results supporting the discharge/admit diagnosis, lab results, radiology results, to return to the emergency department if symptoms worsen or persist or if there are any questions or concerns that arise at home. Response to treatment: the patient's symptoms have mildly improved after treatment, and as a result, I will discharge patient. 02/23 11:12 Order name: Basic Metabolic Panel; Complete Time: 11:59 cp 02/23 11:59 Interpretation: Normal except: K 3.4; GLUC 187. cp 02/23 11:12 Order name: CBC with Diff; Complete Time: 15:20 cp 02/23 15:20 Interpretation: Normal except: HGB 11.6; HCT 35.7; MCV 77.9; MCH 25.3; RDW 20.5; ELISEO% cp 75.0. 02/23 11:12 Order name: LFT's; Complete Time: 11:59 cp 02/23 15:23 Interpretation: Normal except: AST 13; ALK 151; IBILI, CALC 0.1; A/G 1.0. cp 02/23 11:12 Order name: Magnesium; Complete Time: 11:59 cp 02/23 11:12 Order name: NT PRO-BNP; Complete Time: 11:59 cp 02/23 11:12 Order name: PT-INR; Complete Time: 11:59 cp 02/23 11:12 Order name: Troponin HS; Complete Time: 11:59 cp 01/12 11:12 Order name: Urinalysis w/ reflexes; Complete Time: 13:06 cp 02/23 11:12 Order name: Test, Urine; Complete Time: 13:06 cp 02/23 11:12 Order name: UDS; Complete Time: 13:06 cp 02/23 11:40 Order name: CBC Smear Scan; Complete Time: 15:20 EDMS 02/23 15:23 Interpretation: Reviewed. cp 02/23 11:59 Order name: D-Dimer; Complete Time: 13:06 cp 02/23 15:24 Order name: Troponin HS; Complete Time: 16:02 cp 02/23 11:12 Order name: XRAY Chest (1 view); Complete Time: 13:06 cp 02/23 13:07 Order name: CT Head Brain wo Cont; Complete Time: 15:20 cp 02/23 15:21 Interpretation: Report reviewed. cp 02/23 13:07 Order name: CT Chest For PE Angio; Complete Time: 15:20 cp 02/23 15:22 Interpretation: Report reviewed. cp 02/23 11:12 Order name: Cardiac monitoring; Complete Time: 11:58 cp 02/23 11:12 Order name: EKG - Nurse/Tech; Complete Time: 11:58 cp 02/23 11:12 Order name: IV Saline Lock; Complete Time: 11:58 cp 02/23 11:12 Order name: Labs collected and sent; Complete Time: 11:58 cp 02/23 11:12 Order name: O2 Per Protocol; Complete Time: 11:58 cp 02/23 11:12 Order name: O2 Sat Monitoring; Complete Time: 11:58 cp EC:19 Rate is 97 beats/min. Rhythm is regular. MN interval is normal. QRS interval is normal. cp QT interval is normal. T waves are Inverted in lead aVR. Interpreted by me. Reviewed by me. Administered Medications: 11:57 CANCELLED (Physician Discretion): [id number] mg IV at calculated rate once over 2 cp mins; For SBP greater than 140. Hold for HR less than 60, notify provider. 12:23 Drug: Labetalol IV 10 mg IV at calculated rate once Route: IV; Rate: calculated rate; me1 Site: right antecubital; 12:25 Follow up: Response: No adverse reaction; Blood pressure is lowered me1 13:39 Drug: Ketorolac IVP 15 mg IVP once Route: IVP; Site: right antecubital; me1 15:29 Follow up: Response: No adverse reaction; Pain is decreased me1 Disposition: 18:56 Co-signature as Attending Physician, Jean Carlos Andrews MD I reviewed the patient's care rn provided by the Advanced Practice Provider and agree with the diagnosis and treatment plan. Disposition Summary: 02/24/24 16:21 Discharge Ordered Notes: Location: Home cp Problem: new cp Symptoms: have improved cp Condition: Stable cp Diagnosis - Palpitations cp - Headache cp - Chest pain, unspecified cp Followup: cp - With: Private Physician - When: 2 - 3 days - Reason: Recheck today's complaints Discharge Instructions: - Discharge Summary Sheet cp - Nonspecific Chest Pain, Adult cp - Palpitations cp - Aspirin and Your Heart cp Forms: - Medication Reconciliation Form cp - Antibiotic Education cp - Prescription Opioid Use cp - Patient Portal Instructions cp - Leadership Thank You Letter cp Signatures: Dispatcher [employer] Mayelin Regalado RN RN iw Nieto, Roman, MD MD rn Page, Corey, PA PA cp Tamar Judd RN RN me1 Corrections: (The following items were deleted from the chart) 11:12 11:12 BASIC METABOLIC PANEL+C.LAB.BRZ ordered. EDMS EDMS 11:12 11:12 CBC+H.LAB.BRZ ordered. EDMS EDMS 11:12 11:12 HEPATIC FUNCTION+C.LAB.BRZ ordered. EDMS EDMS 11:12 11:12 MAGNESIUM+C.LAB.BRZ ordered. EDMS EDMS 11:12 11:12 PROBNP+C.LAB.BRZ ordered. EDMS EDMS 11:12 11:12 PROTIME (+INR)+COAG.LAB.BRZ ordered. EDMS EDMS 11:12 11:12 Troponin High Sensitivity+C.LAB.BRZ ordered. EDMS EDMS 11:12 11:12 Urinalysis+U.LAB.BRZ ordered. EDMS EDMS 11:12 11:12 Test, Urine+UC.LAB.BRZ ordered. EDMS EDMS 11:12 11:12 URINE DRUG SCREEN+UC.LAB.BRZ ordered. EDMS EDMS 11:12 11:12 Chest Single View+RAD.RAD.BRZ ordered. EDMS EDMS 11:57 11:18 Labetalol IV 10 mg IV at calculated rate once over 2 mins; For SBP greater than cp 140. Hold for HR less than 60, notify provider. ordered. cp 13: 13:08 Head Brain Wo Cont+CT.RAD.BRZ ordered. EDMS EDMS : 13:08 Chest For PE Angio+CT.RAD.BRZ ordered. EDMS EDMS
[2024-02-26 16:08] VITALS: BP 136/68; TEMP 97.8; O2SAT 98
--- NOTE | 2024-02-28 12:12 | EKG ---
Test Date: 2024-02-24 Test Time: 11:12:50 [employer] Lieutenant: THAIS MEASUREMENT RESULTS: Intervals: Rate: 97 AR: 144 QRSD: 92 QT: 364 QTc: 462 [place]: P: 68 AR: 144 QRS: 43 T: 51 INTERPRETIVE STATEMENTS: Normal sinus rhythm Nonspecific ST and T wave abnormality Abnormal ECG Compared to ECG 02/08/2024 16:41:05 ST (T wave) deviation now present Electronically Signed On 02-28-24 12:08:48 LUNCHROOM SUPERVISOR by Ruperto Boone
== END 2024-02-24 16:33 | disposition home or self-care (01) ==
LOC: ER 10:42
DX: R00.2 Palpitations (principal); R07.9 Chest pain, unspecified; R51.9 Headache, unspecified; I10 Essential (primary) hypertension; Z88.2 Allergy status to sulfonamides
CPT/HCPCS: 93005; 85025; 81001; 80048; 36415; 83735; 81025; 85610; 85379; 80076; 84484 ×2; 83880; 80307; 70450; 71275; 71045; 96375; 96374; 99285; Q9967

== ENCOUNTER 2024-03-23 17:16 | Emergency (ER) | payer OTHER ==
--- OUTSIDE RECORDS SUMMARY | 2024-03-23 17:33 | XMS REPORT | Continuity of Care Document ---
Author Name Unknown Address [address] [facility] [address] [place] [address] [facility] thconnect Address [address] [facility] [address] [place] [address] Care Team Providers Care Card Processing Clerk Name Role Phone Jae Benjamin Primary Care Physician [phone] Jae Holloway Attending Clinician Unavailable Doctor Unassigned, [place] Attending Clinician U Tavon Ruth MD Attending Clinician [phone] ALESHA CROWE Attending Clinician Unavailable Conseulo BAUER, Elidia Gamble Attending Clinician [phone] Dominic Keita MD Attending Clinician [phone] Jose Westbrook MD Attending Clinician [phone] JOSE WESTBROOK Attending Clinician Unavailable FARZANA SAUCEDA Attending Clinician Unavailable MARYSOL PABON Attending Clinician Unavailable MARYSOL PABON Attending Clinician Unavailable Stan PATELMarysol Attending Clinician [phone] Rhiannon Vizcarra MD Attending Clinician [phone] Dominic Keita MD Attending Clinician [phone] DAVIDSON SUTHERLAND Attending Clinician Unavailable Consuelo BAUER, Elidia Gamble Attending Clinician [phone] EMILIA SNOWDEN Attending Clinician Annia vailable Doctor Unassigned, [place] Attending Clinician U SARA Day Attending Clinician UnavailSARA Dorado Attending Clinician UnavailJewel Forbes MD Attending Clinician [phone] [facility] Attending Clinician Unavailable JEWEL CUNHA Attending Clinician Unavaila JENNY Norton Attending Clinician Unavailable JENNY ARRIAGA Attending Clinician Unavailable Dexter Dias MD Attending Clinician [phone] Davidson Sutherland MD Attending Clinician [phone] [facility] Attending Clinician Unavailable DEXTER DIAS Attending Clinician Unavailable GC_GCBZW_Kadiyala_S Attending Clinician Unavaila ONEIDA Del Rosario Attending Clinician Unavailable DOMINIC KEITA Attending Clinician UnavailHunter Sahni MD Attending Clinician [phone] Ting Grissom MD Attending Clinician [phone] RADIOLOGY Attending Clinician Unavailable DORA NEWMAN Attending Clinician Unavailable Deloris ALUMINUM SIDING APPLICATOR, Dora Pope Attending Clinician [phone] Kath Vences MD Attending Clinician [phone] Pob, [facility] Attending Clinician UnavailKATH Grady Attending Clinician Unavailchris russell Pathology Attending Clinician Unavailable IGOR SAAVEDRA Attending Clinician UnavailHILARY Conrad Attending Clinician UnavailHILARY Conrad Attending Clinician UnavailIgor pfeiffer Rai, MD Attending Clinician UnaGIGI Dela Cruz Attending Clinician Unavailable Gigi Monroy DO Attending Clinician [phone] Zane Martinez MD Attending Clinician [phone] Marycruz VAZQUEZ, Deonte Attending Clinician Unavailable UNKNOWN, ATTENDING Attending Clinician Unavailab SALLY Cash Attending Clinician Unavail able SALLY MITCHELL Attending Clinician Unavail able Salbador Lockwood MD Attending Clinician [phone] SALBADOR LOCKWOOD Attending Clinician Unavailable HALIMA CONNOR Attending Clinician Unavailab Halima Choi DO Attending Clinician [phone] ROBERT NOWAK Attending Clinician Unavail able Patti Hutton Attending Clinician [phone] CRISTO MARTINEZ Attending Clinician Unavail able JEWEL MORAES Attending Clinician UnaKATH Sen Attending Clinician Unav ANGELA Richardson Attending Clinician Unavailab RHIANNON Durant Admitting Clinician Unavailable GC_GCBZW_Kadiyala_S Admitting Clinician Unavaila DOMINIC Watts Admitting Clinician Unavailabl yvonne Keita MD, Dominic Admitting Clinician [phone] Payers Payer Name Policy Type Policy Number Effective Date Expirati on Date Source [facility] [id number] 2023 00:00:00 [facility] [employer] [id number] 2022 00:00:00 MEDICAID SSI PENDING PENDING 2021 00:00:00 Problems Condition Name Condition Details Condition Category Status Onset Date Resolution Date Last Treatment Date Treating Clinician Comments Source Excessive menstruati on with irregular cycle Excessive Menstruati on with Irregular Cycle Problem Active 03-07 00:00: 00 [facility] Stenosis of cervix Stenosis of Cervix Problem Active 03-03 00:00: 00 [facility] Atrial fibrillati on Atrial Fibrillati on Problem [...] blood loss Disease Active 10-19 00:00: 00 [facility] Gastroesop hageal reflux disease, unspecifie d whether esophagiti s present Gastroesop hageal reflux disease, unspecifie d whether esophagiti s present Disease Active 10-19 00:00: 00 [facility] Arrhythmia Arrhythmia Disease Active 10-18 00:00: 00 [facility] Anemia Anemia Disease Active 02-17 00:00: 00 [facility] Bipolar 1 disorder, depressed Bipolar 1 disorder, depressed Disease Active 2019-02 00:00: 00 [facility] Gout Gout Disease Active 08-17 00:00: 00 [facility] Severe headache Severe headache Disease Active 1998-02 00:00: 00 [facility] Insomnia disorder Insomnia disorder Disease Active 1989-02 00:00: 00 [facility] Anxiety Anxiety Disease Active 10-18 00:00: 00 [facility] No known active problems No known active problems Disease [facility] Constipate d Constipate d Problem [facility] Imaging of brain abnormal Abnormal brain scan Problem [facility] Seizure Seizure Problem [facility] Chronic intractabl e migraine without aura Chronic migraine without aura, intractabl e, without status migrainosu s Problem [facility] Skin sensation disturbanc e Facial tingling sensation Problem [facility] Magnetic resonance imaging of brain abnormal White matter abnormalit y on MRI of brain Problem [facility] Disorder of autonomic nervous system Autonomic dysfunctio n Problem [facility] Benign intracrani al hypertensi on Elevated intracrani al pressure Problem [facility] Myoclonus Myoclonic jerking Problem [facility] Cervical dystonia Cervical dystonia Problem [facility] Carpal tunnel syndrome Carpal tunnel syndrome, bilateral upper limbs Problem [facility] Peripheral neuropathy Peripheral neuropathy Problem [facility] Allergies, Adverse Reactions, Alerts Allergy Name [...] ty to adverse reaction s Active Hives 24 00:00: 00 [facility] SULFA (SULFONA MIDE ANTIBIOT ICS) Drug Class Active Hives 06-05 00:00: 00 [facility] Substanc e with sulfonam chelo structur e and antibact erial mechanis m of action (substan ce) Substanc e with sulfonam chelo structur e and antibact erial mechanis m of action (substan ce) Active Unknown [facility] SULFA (SULFONA MIDE ANTIBIOT ICS) Allergy to substanc e Active [facility] Social History Social Habit Start Date Stop Date Quantity Comments Source Gender identity [facility] Sexual orientation U [facility] Sex Assigned At [facility] History of Tobacco Use [facility] History of Social function 2023-09-03 00:00:00 2023-09-03 00:00:00 [facility] Exposure to SARS-CoV-2 (event) 2022-02-05 00:00:00 2022-02-15 08:57:00 Not sure [facility] Tobacco use and exposure 2021-08-24 00:00:00 2021-08-24 00:00:00 Smokeless tobacco non-user [facility] Smoking Status Start Date Stop Date Source Never Smoker [facility] Medications Ordered Medication Name Filled Medication Name Start Date Stop Date Current Medication? Ordering Clinician Indication Dosage Frequency Signature (SIG) Comments Components Source clonazePAM 1 mg tablet 03-21 00:00: 00 Yes [id number] 1mg Take 1 tablet by mouth as needed for Other (panic). [facility] DULoxetine 60 mg capsule 03-21 00:00: 00 Yes [id number] 60mg Take 1 capsule by mouth in the morning and 1 capsule in the evening. [facility] lithium carbonate CR 450 mg SR tablet 03-21 00:00: 00 Yes [id number] 900mg Take 2 tablets by mouth at bedtime. [facility] busPIRone 30 mg tablet 03-21 00:00: 00 Yes [id number] 30mg Take 1 tablet by mouth in the morning and 1 tablet in the evening. [facility] lamoTRIgine 25 mg tablet 03-14 00:00: 00 04-12 05:59 :00 Yes [id number] Take 1 tablet by mouth daily for 14 days, THEN 2 tablets daily for 14 days. [facility] ketorolac 30 mg/mL (1 mL) injection solutionInj ect 1 mL every 6 hours by intramuscul ar route. ketorolac 30 mg/mL (1 mL) injection solutionInj ect 1 mL every 6 hours by intramuscul ar route. 03-07 08:17: 29 No 1mL Q6H ketorolac 30 mg/mL (1 mL) injection solutionIn ject 1 mL every 6 hours by intramuscu lar route. [facility] Amantadine HCl 100 MG Amantadine HCl 100 MG 03-06 00:00: 00 No 1{capsu le} QD Amantadine HCl 100 MG Botox 200 UNIT Botox 200 UNIT 02-21 00:00: 00 No Botox 200 UNIT busPIRone 30 mg tablet 2023-02 00:00: 00 03-19 00:00 :00 No [id number] 30mg Take 1 tablet by mouth in the morning and 1 tablet in the evening. [facility] DULoxetine 60 mg capsule 2023-02 00:00: 00 03-19 00:00 :00 No [id number] 60mg Take 1 capsule by mouth in the morning and 1 capsule in the evening. [facility] Venofer 200 mg iron/10 mL intravenous solution 2023-02 00:00: 00 Yes 10mg iron/10 mL [facility] Venofer 200 mg iron/10 mL intravenous solution 2023-02 00:00: 00 Yes 10mg iron/10 mL [facility] traZODone 50 mg tablet 2023-02 00:00: 00 Yes [id number] Take 1-2 tablets daily at bedtime for sleep [facility] clonazePAM 1 mg tablet 2023-02- 00:00: 00 03-16 00:00 :00 No [id number] TAKE 1/2 TO 1 TABLET BY MOUTH ONCE DAILY NEEDED FOR SEVERE ANXIETY [facility] traZODone 50 mg tablet 2023-02 00:00: 00 01-27 00:00 :00 No [id number] Take 1-2 tablets for sleep [facility] Cyclobenzap rine HCl 10 MG Cyclobenzap rine HCl 10 MG 2023-02 00:00: 00 No 1{table t_at_be dtime_a s_neede d} QD Cyclobenza amber HCl 10 MG Venofer 200 mg iron/10 mL intravenous solution 2023-02 00:00: 00 Yes 10mg iron/10 mL [facility]i busPIRone 30 mg tablet 2023-02 00:00: 00 02-11 00:00 :00 No [id number] TAKE 1 TABLET BY MOUTH EVERY MORNING AND TAKE ONE TABLET BY MOUTH EVERY EVENING [facility] DULoxetine 60 mg capsule 2023-02 00:00: 00 02-11 00:00 :00 No [id number] TAKE 1 CAPSULE BY MOUTH 2 TIMES A DAY ( EVERY MORNING AND EVERY EVENING ) [facility] ibuprofen 800 mg tablet 2023-02 00:00: 00 Yes 1mg [facility] Cal[facility] Methocarbam ol 500 MG Methocarbam ol 500 MG 2023-02 00:00: 00 No 1.5{tab lets} BID Methocarba mol 500 MG ibuprofen 800 mg tablet 2023-02 00:00: 00 Yes 1mg [facility] TRAZODONE 50 mg tablet 2023-02 00:00: 00 01-20 00:00 :00 No [id number] TAKE 1 AND 1/2 TABLET BY MOUTH AT BEDTIME [facility] Vitamin D3 25 mcg (1,000 unit) tablet 2023-02 0-17 00:00: 00 Yes 1(1,000 unit) [facility] diclofenac sodium 75 mg tablet,mikal yed release 2023-02 0-15 00:00: 00 Yes 1mg [facility] lithium carbonate CR 450 mg SR tablet 2023-02 0-03 00:00: 00 03-19 00:00 :00 No [id number] TAKE TWO TABLETS BY MOUTH AT BEDTIME [facility] LAMOTRIGINE 100 mg tablet 11-09 00:00: 00 03-14 00:00 :00 No [id number] TAKE 1 TABLET BY MOUTH 2 TIMES A DAY (MORNING AND EVENING ) TELL DOCTOR IF YOU MISSED 4 OR MORE DAYS OF THIS MEDICATION , WILL NEED TO START AT LOWER DOSE [facility] clonazePAM 1 mg tablet 11-09 00:00: 00 01-24 00:00 :00 No [id number] TAKE 1/2 TO 1 TABLET BY MOUTH ONCE DAILY NEEDED FOR SEVERE ANXIETY [facility] lithium carbonate CR 450 mg SR tablet 9-04 00:00: 00 11-14 00:00 :00 No [id number] 900mg Take 2 tablets by mouth at bedtime. [facility] traZODone 50 mg tablet 8-07 00:00: 00 12-10 00:00 :00 No [id number] 75mg Take 1.5 tablets by mouth at bedtime for 90 days. [facility] busPIRone 30 mg tablet 09-02 00:00: 00 01-07 00:00 :00 No [id number] 30mg Take 1 tablet by mouth in the morning and 1 tablet in the evening. [facility] DULoxetine 60 mg capsule 09-02 00:00: 00 01-07 00:00 :00 No [id number] 60mg Take 1 capsule by mouth in the morning and 1 capsule in the evening. Follow up for refills [facility] clonazePAM (KLONOPIN) 1 mg tablet 09-02 00:00: 00 11-09 00:00 :00 No [id number] 1mg Take 1 tablet by mouth once daily as needed for Other (severe anxiety). Take 0.5mg to 1mg as needed for severe anxiety [facility] traZODone 50 mg tablet 08-27 00:00: 00 09-18 00:00 :00 No [id number] 50mg Take 1 tablet by mouth at bedtime. May cut tablet in half. Follow up for refills [facility] busPIRone 10 mg tablet 08-27 00:00: 00 09-02 00:00 :00 No [id number] 20mg Take 2 tablets by mouth in the morning and 2 tablets in the evening. Follow up for refills [facility] ferric derisomalto se (MONOFERRIC ) 100 mg iron/mL Soln 08-07 00:00: 00 08-08 04:59 :00 No [id number] 500mg Inject 500 mg intravenou sly once now for 1 dose. [facility] clonazePAM 1 mg tablet 08-01 00:00: 00 09-02 00:00 :00 No [id number] Take half to 1 tablet by mouth once daily as needed for extreme anxiety. Attempt to minimize use. Follow-up for continued refills. [facility] lithium carbonate CR 450 mg SR tablet 07-30 00:00: 00 10-16 00:00 :00 No [id number] 900mg Take 2 tablets by mouth at bedtime. [facility] omeprazole 40 mg capsule 07-25 00:00: 00 07-21 04:59 :00 No [id number] 40mg Take 1 capsule by mouth in the morning and 1 capsule in the evening. Take with meals. Do all this for 360 days. [facility] sucralfate 1 gram tablet 07-25 00:00: 00 10-24 04:59 :00 No [id number] 1g Take 1 tablet by mouth before meals and at bedtime for 90 days. [facility] traZODone 50 mg tablet -06 00:00: 00 08-26 00:00 :00 No [id number] 50mg Take 1 tablet by mouth at bedtime. May cut tablet in half. Follow up for refills [facility] DULoxetine 60 mg capsule 5-10 00:00: 00 09-02 00:00 :00 No [id number] 60mg Take 1 capsule by mouth in the morning and 1 capsule in the evening. Follow up for refills [facility] busPIRone 10 mg tablet 06-21 00:00: 00 08-27 00:00 :00 No [id number] 20mg Take 2 tablets by mouth in the morning and 2 tablets in the evening. Follow up for refills [facility] traZODone 50 mg tablet 06-21 00:00: 00 07-18 00:00 :00 No [id number] 50mg Take 1 tablet by mouth at bedtime. May cut tablet in half. Follow up for refills [facility] clonazePAM 1 mg tablet 06-12 00:00: 00 07-30 00:00 :00 No [id number] Take half to 1 tablet by mouth once daily as needed for extreme anxiety. Attempt to minimize use. Follow-up for continued refills. [facility] iopamidol (ISOVUE 370-500 mL) injection 80 mL 06-07 02:57: 00 06-07 02:45 :00 No [id number] 80mL 80 mL, Intravenou s, ONCE, 1 dose, On Sun06/07/23 at 2200, Routine [facility] NaCl 0.9% (NS) injection 5 mL 06-07 02:36: 00 Yes 5mL 5 mL, Slow IV Push, PRN - SEE INSTRUCTIO NS, Starting on Sun06/07/23 at 2136, Until Discontinu ed, 10 mL [facility] traZODone 50 mg tablet 05-22 00:00: 00 06-21 00:00 :00 No [id number] 50mg Take 1 tablet by mouth at bedtime. May cut tablet in half. [facility] DULoxetine 60 mg capsule 4-10 00:00: 00 06-21 00:00 :00 No [id number] 60mg Take 1 capsule by mouth in the morning and 1 capsule in the evening. [facility] busPIRone 10 mg tablet 3-26 00:00: 00 06-21 00:00 :00 No [id number] 20mg Take 2 tablets by mouth in the morning and 2 tablets in the evening. [facility] traZODone 50 mg tablet 3-13 00:00: 00 05-22 00:00 :00 No [id number] 50mg Take 1 tablet by mouth at bedtime. May cut tablet in half. [facility] DULoxetine 60 mg capsule 3- 00:00: 00 05-22 00:00 :00 No [id number] 60mg Take 1 capsule by mouth in the morning and 1 capsule in the evening. [facility] DULoxetine 60 mg capsule 1-24 00:00: 00 04-23 00:00 :00 No [id number] 60mg Take 1 capsule by mouth in the morning and 1 capsule in the evening. [facility] Ubrelvy 100 MG Ubrelvy 100 MG 1- 00:00: 00 No Ubrelvy 100 MG losartan potassium (LOSARTAN ORAL) 02-15 09:55: 13 Yes 20mg Take 20 mg by mouth. [facility] propranolol 80 mg tablet - 09:55: 13 Yes 80mg Take 1 tablet by mouth in the morning and 1 tablet in the evening. [facility] allopurinoL 100 mg tablet 02-15 09:55: 13 Yes 100mg Take 1 tablet by mouth in the morning. [facility] lithium carbonate CR 450 mg SR tablet 2022-02 2-11 00:00: 00 07-29 00:00 :00 No [id number] 900mg Take 2 tablets by mouth at bedtime. [facility] clonazePAM 1 mg tablet 2022-02 00:00: 00 06-11 00:00 :00 No [id number] Take half to 1 tablet by mouth once daily as needed for extreme anxiety. Attempt to minimize use. [facility] busPIRone 10 mg tablet 2022-02 00:00: 00 05-07 00:00 :00 No [id number] 20mg Take 2 tablets by mouth in the morning and 2 tablets in the evening. [facility] traZODone 50 mg tablet 2022-02 00:00: 00 04-22 00:00 :00 No [id number] 50mg Take 1 tablet by mouth at bedtime. May cut tablet in half. [facility] DULoxetine 60 mg capsule 2022-02 00:00: 00 03-07 00:00 :00 No [id number] 60mg Take 1 capsule by mouth in the morning and 1 capsule in the evening. [facility] TAKE 1 TABLET EVERY 4 HOURS NEEDED. 2022-02 00:00: 00 06-12 00:00 :00 No 10 [facility]i busPIRone 15 mg tablet 2022-02 00:00: 00 01-22 00:00 :00 No [id number] 15mg Take 1 tablet by mouth in the morning and 1 tablet in the evening. [facility] lithium carbonate CR 450 mg SR tablet 2022-02 00:00: 00 01-22 00:00 :00 No [id number] 900mg Take 2 tablets by mouth at bedtime. [facility] traZODone 50 mg tablet 2022-02 00:00: 00 01-22 00:00 :00 No [id number] 50mg Take 1 tablet by mouth at bedtime. May cut tablet in half. [facility] DULoxetine 60 mg capsule 2022-02 00:00: 00 01-22 00:00 :00 No [id number] 60mg Take 1 capsule by mouth in the morning and 1 capsule in the evening. [facility] clonazePAM 1 mg tablet 2022-02 00:00: 00 01-22 00:00 :00 No [id number] Take 1 tablet by mouth once daily as needed for extreme anxiety. Attempt to minimize use. [facility] busPIRone 15 mg tablet 2022-02 00:00: 00 12-20 00:00 :00 No [id number] 15mg Take 1 tablet by mouth in the morning and 1 tablet in the evening. [facility] lithium carbonate CR 450 mg SR tablet 2022-02 00:00: 00 12-20 00:00 :00 No [id number] 900mg Take 2 tablets by mouth at bedtime. [facility] traZODone 50 mg tablet 2022-02 00:00: 00 12-20 00:00 :00 No [id number] 50mg Take 1 tablet by mouth at bedtime. May cut tablet in half. [facility] TAKE 2 TABLETS ONCE A DAY BY MOUTH 2022-02 00:00: 00 06-12 00:00 :00 No 200 Robert Arnol Cali DULoxetine 60 mg capsule 2022-02 00:00: 00 12-20 00:00 :00 No [id number] 60mg Take 1 capsule by mouth in the morning and 1 capsule in the evening. [facility] simethicone (GAS RELIEF (SIMETHICON E)) 40 mg/0.6 mL drops 2022-02 13:19: 00 11-13 16:49 :02 No PRN, Starting on Sun11/13/22 at 0819, Until Sun11/13/22 at 1149, Routine, Intra-op [facility] losartan potassium (LOSARTAN ORAL) 2022-02 09:49: 01 Yes 20mg Take 20 mg by mouth. [facility] propranolol 80 mg tablet 2022-02 09:49: 01 Yes 80mg Take 1 tablet by mouth in the morning and 1 tablet in the evening. [facility] allopurinoL 100 mg tablet 2022-02 09:49: 01 Yes 100mg Take 1 tablet by mouth in the morning. [facility] sucralfate 1 gram tablet 2022-02 0-02 00:00: 00 12-14 04:59 :00 No 1g Take 1 tablet by mouth in the morning and 1 tablet in the evening. Do all this for 30 days. [facility] ketorolac (TORADOL) injection 30 mg 11-03 17:00: 00 11-03 16:25 :00 No 30mg 30 mg, Slow IV Push, ONCE, 1 dose, On Sun11/03/22 at 1200, Routine [facility] NaCl 0.9% (NS) bolus infusion 500 mL 11-03 16:45: 00 11-03 18:14 :00 No 500mL at 999 mL/hr, 500 mL, IV Infusion, ONCE, 1 dose, On Sun11/03/22 at 1145, [facility] butalbital- acetaminoph en-caff (ESGIC) 50-325-40 mg tablet 1 tablet 11-03 16:00: 00 11-03 16:21 :00 No 1{tbl} 1 tablet, Oral, ONCE, 1 dose, On Sun11/03/22 at 1100, [facility] dexamethaso ne sod phos PF injection 10 mg 11-03 16:00: 00 11-03 16:27 :00 No 10mg 10 mg, Slow IV Push, ONCE, 1 dose, On Sun11/03/22 at 1100, 1 mL [facility] metoclopram chelo HCl (REGLAN) injection 10 mg 11-03 16:00: 00 11-03 16:28 :00 No 10mg 10 mg, Slow IV Push, ONCE, 1 dose, On Sun11/03/22 at 1100, SKYLAR [facility] diphenhydrA MINE (BENADRYL) injection 25 mg 11-03 16:00: 00 11-03 16:30 :00 No 25mg 25 mg, Slow IV Push, ONCE, 1 dose, On Sun11/03/22 at 1100, STAT [facility] atorvastati n 10 mg tablet 11-03 10:48: 00 11-03 00:00 :00 No 10mg Take 10 mg by mouth at bedtime. [facility] butalbital- acetaminoph en-caff 50-325-40 mg tablet 11-03 00:00: 00 Yes [id number] 1{tbl} Take 1 tablet by mouth every 6 (six) hours as needed for Pain (scale 7-10) or Pain (scale 4-6) for up to 12 doses. [facility] peg-electro lyte soln 236-22.74-6 .74 -5.86 gram solution 10-19 00:00: 00 11-03 00:00 :00 No [id number] Take as directed before colonoscop y [facility] TAKE 1 TABLET DAILY. 10-12 00:00: 00 06-12 00:00 :00 No 40 Robert Cali busPIRone 15 mg tablet 10-04 00:00: 00 12-13 00:00 :00 No [id number] 15mg Take 1 tablet by mouth in the morning and 1 tablet in the evening. [facility] clonazePAM 1 mg tablet 09-28 00:00: 00 12-20 00:00 :00 No [id number] Take 1 tablet by mouth twice daily as needed for anxiety. [facility] DULoxetine 60 mg capsule 09-26 00:00: 00 11-22 00:00 :00 No [id number] 60mg Take 1 capsule by mouth in the morning and 1 capsule in the evening. [facility] lithium carbonate CR 450 mg SR tablet 09-13 00:00: 00 11-28 00:00 :00 No [id number] 900mg Take 2 tablets by mouth at bedtime. [facility] busPIRone 10 mg tablet 09-13 00:00: 00 10-04 00:00 :00 No [id number] 10mg Take 1 tablet by mouth in the morning and 1 tablet in the evening. [facility] clonazePAM 1 mg tablet 19 00:00: 00 09-25 00:00 :00 No [id number] Take 1 tablet by mouth twice daily as needed for anxiety. [facility] TAKE 2 TABLETS ONCE A DAY BY MOUTH 08-24 00:00: 00 06-12 00:00 :00 No 200 Robert Ambrose Viraj FUROSEMIDE ORAL 07-26 09:33: 26 07-26 00:00 :00 No 40mg Take 40 mg by mouth daily. [facility] traZODone 50 mg tablet 07-26 00:00: 00 11-28 00:00 :00 No [id number] 50mg Take 1 tablet by mouth at bedtime. May cut tablet in half. [facility] DULoxetine 60 mg capsule 07-26 00:00: 00 09-25 00:00 :00 No [id number] 60mg Take 1 capsule by mouth in the morning and 1 capsule in the evening. [facility] lithium carbonate CR 450 mg SR tablet 07-26 00:00: 00 09-13 00:00 :00 No [id number] 900mg Take 2 tablets by mouth at bedtime. [facility] busPIRone 10 mg tablet 07-26 00:00: 00 09-13 00:00 :00 No [id number] 10mg Take 1 tablet by mouth in the morning and 1 tablet in the evening. [facility] INHALE 2 PUFFS EVERY 4-6 HOURS NEEDED. 07-22 00:00: 00 06-12 00:00 :00 No [id number] Robert Cali clonazePAM 1 mg tablet 24 00:00: 00 08-29 00:00 :00 No [id number] Take 1 tablet by mouth twice daily as needed for anxiety. [facility] TAKE 1 CAPSULE 3 TIMES DAILY WITH MEALS. 16 00:00: 00 06-12 00:00 :00 No 120 Robert Cali DULoxetine 60 mg capsule 06-20 00:00: 00 07-26 00:00 :00 No [id number] 60mg Take 1 capsule by mouth in the morning and 1 capsule in the evening. [facility] lithium carbonate CR 450 mg SR tablet 06-20 00:00: 00 07-26 00:00 :00 No [id number] 900mg Take 2 tablets by mouth at bedtime. [facility] TAKE 1 TABLET TWICE DAILY. 06-15 00:00: [...] 04-20 00:00: 00 07-26 00:00 :00 No [id number] 50mg Take 1 tablet by mouth at bedtime. May cut tablet in half. [facility] clonazePAM 1 mg tablet 04-20 00:00: 00 07-05 00:00 :00 No [id number] Take 1 tablet by mouth twice daily as needed for anxiety. [facility] DULoxetine 60 mg capsule 04-20 00:00: 00 06-17 00:00 :00 No [id number] 60mg Take 1 capsule by mouth in the morning and 1 capsule in the evening. [facility] lithium carbonate CR 450 mg SR tablet 04-20 00:00: 00 06-17 00:00 :00 No [id number] 900mg Take 2 tablets by mouth at bedtime. [facility] traZODone 50 mg tablet 1-04 00:00: 00 04-20 00:00 :00 No [id number] 50mg Take 1 tablet by mouth at bedtime. May cut tablet in half. [facility] lithium carbonate CR 450 mg SR tablet - 00:00: 00 04-20 00:00 :00 No [id number] 900mg Take 2 tablets by mouth at bedtime. [facility] DULoxetine 60 mg capsule 02-15 00:00: 00 04-19 00:00 :00 No [id number] 60mg Take 1 capsule by mouth in the morning and 1 capsule in the evening. [facility] clonazePAM 1 mg tablet 02-15 00:00: 00 04-19 00:00 :00 No [id number] Take 1 tablet by mouth twice daily as needed for anxiety. [facility] lithium 600 mg capsule 02-15 00:00: 00 02-15 00:00 :00 No [id number] 600mg Take 1 capsule by mouth in the morning and 1 capsule in the evening. [facility] DULoxetine 60 mg capsule 2021-02 00:00: 00 02-15 00:00 :00 No [id number] 60mg Take 1 capsule by mouth in the morning and 1 capsule in the evening. [facility] traZODone 50 mg tablet 2021-02 00:00: 00 02-15 00:00 :00 No [id number] 50mg Take 1 tablet by mouth at bedtime. May cut tablet in half. [facility] clonazePAM 1 mg tablet 2021-02 00:00: 00 02-15 00:00 :00 No [id number] Take 1 tablet by mouth twice daily as needed for anxiety. [facility] DULoxetine 60 mg capsule 2021-02 00:00: 00 02-07 00:00 :00 No [id number] 60mg Take 1 capsule by mouth in the morning and 1 capsule in the evening. [facility] traZODone 50 mg tablet 2021-02 00:00: 00 01-11 00:00 :00 No [id number] 50mg Take 1 tablet by mouth at bedtime. May cut tablet in half. [facility] DULoxetine 60 mg capsule 2021- 0-25 00:00: 00 01-09 00:00 :00 No [id number] 60mg Take 1 capsule by mouth in the morning and 1 capsule in the evening. [facility] lithium 600 mg capsule 2021-02 0-20 00:00: 00 02-15 00:00 :00 No [id number] 600mg Take 1 capsule by mouth in the morning and 1 capsule in the evening. [facility] lamoTRIgine 25 mg tablet 2021-02 0-20 00:00: 00 01-11 00:00 :00 No [id number] 50mg Take 2 tablets by mouth in the morning and 2 tablets in the evening. [facility] clonazePAM 1 mg tablet 2021-02 0-20 00:00: 00 01-09 00:00 :00 No [id number] Take 1 tablet by mouth twice daily as needed for anxiety. [facility] lamoTRIgine 25 mg tablet 0 8- 00:00: 00 11-30 00:00 :00 No [id number] 50mg Take 2 tablets by mouth in the morning and 2 tablets in the evening. [facility] clonazePAM 1 mg tablet 0 8-25 00:00: 00 11-30 00:00 :00 No [id number] Take no more than 1 mg twice daily as needed for anxiety [facility] lithium 600 mg capsule 2021-0 8-25 00:00: 00 11-30 00:00 :00 No [id number] 600mg Take 1 capsule by mouth in the morning and 1 capsule in the evening. [facility] Lamotrigine 50 mg tablet 2021-0 8-25 00:00: 00 10-07 00:00 :00 No [id number] 50mg Take 1 tablet by mouth in the morning and 1 tablet in the evening. [facility] Lamotrigine 50 mg tablet 2021-0 8- 00:00: 00 10-06 00:00 :00 No [id number] 50mg Take 1 tablet by mouth in the morning and 1 tablet in the evening. [facility] DULoxetine 60 mg capsule 7-27 00:00: 00 12-05 00:00 :00 No [id number] 60mg Take 1 capsule by mouth in the morning and 1 capsule in the evening. [facility] Lamotrigine 50 mg tablet 18 00:00: 00 09-22 00:00 :00 No [id number] 50mg Take 1 tablet by mouth in the morning and 1 tablet in the evening. [facility] lithium 600 mg capsule -13 00:00: 00 10-06 00:00 :00 No [id number] 600mg Take 1 capsule by mouth in the morning and 1 capsule in the evening. [facility] DULoxetine 60 mg capsule 08-09 00:00: 00 Yes [id number] 60mg Take 1 capsule by mouth 2 (two) times daily. [facility] traZODone 50 mg tablet 08-09 00:00: 00 01-02 00:00 :00 No [id number] 50mg Take 1 tablet by mouth at bedtime. May cut tablet in half. [facility] clonazePAM 1 mg tablet 08-09 00:00: 00 10-06 00:00 :00 No [id number] Take no more than 1 mg twice daily as needed for anxiety [facility] CYANOCOBALA M INJ [id number] Milliliters 06-04 00:00: 00 Yes Robert Cali DULoxetine 60 mg capsule 414 00:00: 00 08-09 00:00 :00 No [id number] 60mg Take 1 capsule by mouth 2 (two) times daily. [facility] traZODone 50 mg tablet 05-26 00:00: 00 08-09 00:00 :00 No [id number] 50mg Take 1 tablet by mouth at bedtime. May cut tablet in half. [facility] vitamin B-12 1,000 mcg tablet 05-23 00:00: 00 11-03 00:00 :00 No [id number] 1000ug Take 1 tablet by mouth daily. [facility] cyanocobala min 1,000 mcg/mL injection 05-23 00:00: 00 11-03 00:00 :00 No [id number] 1000ug 1 mL by Intramuscu lar route weekly. [facility] losartan potassium (LOSARTAN ORAL) 05-17 09:24: 36 Yes 20mg Take 20 mg by mouth. [facility] FUROSEMIDE ORAL 05-17 09:24: 36 Yes 40mg Take 40 mg by mouth daily. [facility] magnesium gluconate 200 mg tablet 05-17 00:00: 00 Yes [id number] 400mg Take 2 tablets by mouth 2 (two) times daily. [facility] gabapentin 300 mg capsule 05-17 00:00: 00 11-03 00:00 :00 No [id number] 300mg Take 1 capsule by mouth 3 (three) times daily. [facility] rizatriptan 5 mg disintegrat ing tablet 05-17 00:00: 00 11-03 00:00 :00 No [id number] 5mg Take 1 tablet by mouth as needed for Migraine (Take 5mg at the beginning of the headache can repeat 2h after if headaches persists). May repeat in 2 hours if needed [facility] magnesium gluconate 200 mg tablet 05-17 00:00: 00 11-03 00:00 :00 No [id number] 400mg Take 2 tablets by mouth 2 (two) times daily. [facility] artificial tears,hypro mellose, 0.5 % ophthalmic drops 05-17 00:00: 00 06-22 00:00 :00 No [id number] 1[drp] Place 1 Drop in left eye as needed for Dry eyes. [facility] Dose Unknown 05-16 00:00: 00 Yes Robert [...] Unknown 2-0 4-04 00:00: 00 Yes Robert Cali clonazePAM 1 mg tablet 2021-0 3-31 00:00: 00 08-09 00:00 :00 No [id number] Take no more than 1 mg twice daily as needed for anxiety [facility] lithium 600 mg capsule 2021-0 3-30 00:00: 00 06-12 00:00 :00 No [id number] 600mg Take 1 capsule by mouth 2 (two) times daily. [facility] ondansetron (ZOFRAN ODT) 4 mg disintegrat ing tablet 2020-0 7-22 00:00: 00 11-03 00:00 :00 No [id number] 4mg Take 1 tablet by mouth every 8 (eight) hours as needed for Nausea and Vomiting (N/V). [facility] butalbital- acetaminoph en-caff 50-325-40 mg tablet 0 09-02 00:00: 00 05 00:00 :00 No [id number] 1{tbl} Take 1 tablet by mouth every 6 (six) hours as needed for Pain (scale 7-10). [facility] Dose Unknown 0 07-14 00:00: 00 Yes Robert F Viraj Dose Unknown 0 07-14 00:00: 00 Yes Robert F Viraj Dose Unknown 0 6 00:00: 00 Yes Robert F Viraj Dose Unknown 2020-0 -21 00:00: 00 Yes Robert F Viraj Dose Unknown 0 19 00:00: 00 Yes Robert F Viraj Dose Unknown 2020-0 -19 00:00: 00 Yes Robert F Viraj Dose Unknown 0 5-19 00:00: 00 Yes Robert F Viraj Dose Unknown 2020-0 5-19 00:00: 00 Yes Robert F Viraj Dose Unknown 2020-0 19 00:00: 00 Yes Robert F Viraj Dose Unknown 2020-0 -19 00:00: 00 Yes Robert F Viraj Dose Unknown 2020-0 5-19 00:00: 00 Yes Robert F Viraj Dose Unknown 2020-0 5-19 00:00: 00 Yes Robert F Viraj Dose Unknown 2020-0 5-19 00:00: 00 Yes Robert F Viraj Dose Unknown 2020-0 5-19 00:00: 00 Yes Robert F Viraj Dose Unknown 2020-0 -19 00:00: 00 Yes Robert F Viraj Dose Unknown 2020-0 -19 00:00: 00 Yes Robert F Viraj Dose Unknown 0 28 00:00: 00 Yes Robert F Viraj Dose Unknown 0 -28 00:00: 00 Yes Robert F Viraj Dose Unknown 2020-0 -28 00:00: 00 Yes Robert F Viraj allopurinoL 100 mg tablet 08-05 13:17: 52 Yes 100mg Take 1 tablet by mouth in the morning. [facility] atorvastati n 10 mg tablet 08-05 13:17: 52 Yes 10mg Take 10 mg by mouth at bedtime. [facility] propranolol 80 mg tablet 08-05 13:12: 38 Yes 80mg Take 1 tablet by mouth in the morning and 1 tablet in the evening. [facility] acetaminoph en 300 mg-codeine 30 mg tablet Take 1 tablet every 6 hours by oral route as needed for 2 days, for Take 1 tablet one hour prior to procedure and then every 6hrs thereafter as needed. acetaminoph en 300 mg-codeine 30 mg tablet Take 1 tablet every 6 hours by oral route as needed for 2 days, for Take 1 tablet one hour prior to procedure and then every 6hrs thereafter as needed. No 1 Q6H acetaminop hen 300 mg-codeine 30 mg tablet Take 1 tablet every 6 hours by oral route as needed for 2 days, for Take 1 tablet one hour prior to procedure and then every 6hrs thereafter as needed. [facility] alprazolam 0.5 mg tablet Take 1 tablet 3 times a day by oral route. alprazolam 0.5 mg tablet Take 1 tablet 3 times a day by oral route. No 1 TID alprazolam 0.5 mg tablet Take 1 tablet 3 times a day by oral route. [facility] amlodipine 10 mg tablet Take 1 tablet every day by oral route. amlodipine 10 mg tablet Take 1 tablet every day by oral route. No 1 Q1D amlodipine 10 mg tablet Take 1 tablet every day by oral route. [facility] losartan 100 mg tablet Take 1 [...] oral route for 30 days. [facility] Celebrex 200 mg capsule Take 1 capsule every day by oral route as directed for 1 day. Celebrex 200 mg capsule Take 1 capsule every day by oral route as directed for 1 day. No 1capsul e(s) Q1D Celebrex 200 mg capsule Take 1 capsule every day by oral route as directed for 1 day. [facility] Cytotec 200 mcg tablet Take 1 tablet as needed by oral route as directed for 2 days. Cytotec 200 mcg tablet Take 1 tablet as needed by oral route as directed for 2 days. No 1 Cytotec 200 mcg tablet Take 1 tablet as needed by oral route as directed for 2 days. [facility] levofloxaci n 500 mg tablet Take 1 tablet every 24 hours by oral route as directed for 3 days. levofloxaci n 500 mg tablet Take 1 tablet every 24 hours by oral route as directed for 3 days. No 1 Q24H levofloxac in 500 mg tablet Take 1 tablet every 24 hours by oral route as directed for 3 days. [facility] ondansetron HCl 4 mg tablet Take 2 tablets every day by oral route for 1 day, for two tablets 3 hours prior to procedure. ondansetron HCl 4 mg tablet Take 2 tablets every day by oral route for 1 day, for two tablets 3 hours prior to procedure. No 2 Q1D ondansetro n HCl 4 mg tablet Take 2 tablets every day by oral route for 1 day, for two tablets 3 hours prior to procedure. [facility] promethazin e 25 mg tablet Take 1 tablet as needed by oral route as directed for 1 day. promethazin e 25 mg tablet Take 1 tablet as needed by oral route as directed for 1 day. No 1 promethazi ne 25 mg tablet Take 1 tablet as needed by oral route as directed for 1 day. [facility] Valium 10 mg tablet Take 1 tablet as needed by oral route as directed for 2 days. Valium 10 mg tablet Take 1 tablet as needed by oral route as directed for 2 days. No 1 Valium 10 mg tablet Take 1 tablet as needed by oral route as directed for 2 days. [facility] Emison Emison No Emison amLODIPine Besylate 5 MG amLODIPine Besylate 5 [...] Immunization Name Date Status Comments Source TDAP 2023-10-02 00:00:00 Completed [facility] Influenza Virus Vaccine Quad .5 mL IM 6+ MO (FLUZONE/FLULAVAL/F LUARIX) 2023-10-02 00:00:00 Completed [facility] SARS-COV-2 COVID-19 VACCINE - (MODERNA) 2023-10-02 00:00:00 Completed [facility] SARS-COV-2 COVID-19 VACCINE - (MODERNA) 2023-09-28 00:00:00 Completed [facility] TDAP 2023-07-30 00:00:00 Completed [facility] Influenza Virus Vaccine Quad .5 mL IM 6+ MO (FLUZONE/FLULAVAL/F LUARIX) 2023-07-30 00:00:00 Completed [facility] TDAP 2023-07-26 09:30:00 Completed [facility] Influenza Virus Vaccine Quad .5 mL IM 6+ MO (FLUZONE/FLULAVAL/F LUARIX) 2023-07-26 09:30:00 Completed [facility] SARS-COV-2 COVID-19 VACCINE - (MODERNA) 2023-07-26 09:30:00 Completed [facility] TDAP 2023-07-02 00:00:00 Completed [facility] Influenza Virus Vaccine Quad .5 mL IM 6+ MO (FLUZONE/FLULAVAL/F LUARIX) 2023-07-02 00:00:00 Completed [facility] SARS-COV-2 COVID-19 VACCINE - (MODERNA) 2023-07-02 00:00:00 Completed [facility] TDAP 2023-06-13 00:00:00 Completed [facility] Influenza Virus Vaccine Quad .5 mL IM 6+ MO (FLUZONE/FLULAVAL/F LUARIX) 2023-06-13 00:00:00 Completed [facility] SARS-COV-2 COVID-19 VACCINE - (MODERNA) 2023-06-13 00:00:00 Completed [facility] TDAP 2023-06-07 21:35:00 Completed [facility] Influenza Virus Vaccine Quad .5 mL IM 6+ MO (FLUZONE/FLULAVAL/F LUARIX) 2023-06-07 21:35:00 Completed [facility] SARS-COV-2 COVID-19 VACCINE - (MODERNA) 2023-06-07 21:35:00 Completed [facility] TDAP 2023-05-29 00:00:00 Completed [facility] Influenza Virus Vaccine Quad .5 mL IM 6+ MO (FLUZONE/FLULAVAL/F LUARIX) 2023-05-29 00:00:00 Completed [facility] SARS-COV-2 COVID-19 VACCINE - (MODERNA) 2023-05-29 00:00:00 Completed [facility] TDAP 2023-05-11 00:00:00 Completed [facility] Influenza Virus Vaccine Quad .5 mL IM 6+ MO (FLUZONE/FLULAVAL/F LUARIX) 2023-05-11 00:00:00 Completed [facility] SARS-COV-2 COVID-19 VACCINE - (MODERNA) 2023-05-11 00:00:00 Completed [facility] TDAP 2023-05-09 00:00:00 Completed [facility] Influenza Virus Vaccine Quad .5 mL IM 6+ MO (FLUZONE/FLULAVAL/F LUARIX) 2023-05-09 00:00:00 Completed [facility] SARS-COV-2 COVID-19 VACCINE - (MODERNA) 2023-05-09 00:00:00 Completed [facility] TDAP 2023-03-28 00:00:00 Completed [facility] Influenza Virus Vaccine Quad .5 mL IM 6+ MO (FLUZONE/FLULAVAL/F LUARIX) 2023-03-28 00:00:00 Completed [facility] SARS-COV-2 COVID-19 VACCINE - (MODERNA) 2023-03-28 00:00:00 Completed [facility] Influenza, injectable, MDCK, quadrivalent, preservative Influenza, injectable, MDCK, quadrivalent, preservative 2022-10-27 00:00:00 Completed [facility] influenza, injectable influenza, injectable 2020-11-13 00:00:00 Completed [facility] Tdap Tdap 2020-09-11 00:00:00 Completed [facility] Moderna COVID-19 Vaccine Moderna COVID-19 Vaccine 2020-04-24 00:00:00 Completed [facility] Moderna COVID-19 Vaccine Moderna COVID-19 Vaccine 2020-03-19 00:00:00 Completed [facility] TDAP Unknown Completed [facility] Influenza Virus Vaccine Quad .5 mL IM 6+ MO (FLUZONE/FLULAVAL/F LUARIX) Unknown Completed [facility] SARS-COV-2 COVID-19 VACCINE - (MODERNA) Unknown Completed [facility] TDAP Unknown Completed [facility] Influenza Virus Vaccine Quad .5 mL IM 6+ MO (FLUZONE/FLULAVAL/F LUARIX) Unknown Completed [facility] SARS-COV-2 COVID-19 VACCINE - (MODERNA) Unknown Completed [facility] TDAP Unknown Completed [facility] Influenza Virus Vaccine Quad .5 mL IM 6+ MO (FLUZONE/FLULAVAL/F LUARIX) Unknown Completed [facility] SARS-COV-2 COVID-19 VACCINE - (MODERNA) Unknown Completed [facility] TDAP Unknown Completed [facility] Influenza Virus Vaccine Quad .5 mL IM 6+ MO (FLUZONE/FLULAVAL/F LUARIX) Unknown Completed [facility] SARS-COV-2 COVID-19 VACCINE - (MODERNA) Unknown Completed [facility] TDAP Unknown Completed [facility] Influenza Virus Vaccine Quad .5 mL IM 6+ MO (FLUZONE/FLULAVAL/F LUARIX) Unknown Completed [facility] SARS-COV-2 COVID-19 VACCINE - (MODERNA) Unknown Completed [facility] TDAP Unknown Completed [facility] Influenza Virus Vaccine Quad .5 mL IM 6+ MO (FLUZONE/FLULAVAL/F LUARIX) Unknown Completed [facility] SARS-COV-2 COVID-19 VACCINE - (MODERNA) Unknown Completed [facility] TDAP Unknown Completed [facility] Influenza Virus Vaccine Quad .5 mL IM 6+ MO (FLUZONE/FLULAVAL/F LUARIX) Unknown Completed [facility] SARS-COV-2 COVID-19 VACCINE - (MODERNA) Unknown Completed [facility] TDAP Unknown Completed [facility] Influenza Virus Vaccine Quad .5 mL IM 6+ MO (FLUZONE/FLULAVAL/F LUARIX) Unknown Completed [facility] SARS-COV-2 COVID-19 VACCINE - (MODERNA) Unknown Completed [facility] TDAP Unknown Completed [facility] Influenza Virus Vaccine Quad .5 mL IM 6+ MO (FLUZONE/FLULAVAL/F LUARIX) Unknown Completed [facility] SARS-COV-2 COVID-19 VACCINE - (MODERNA) Unknown Completed [facility] TDAP Unknown Completed [facility] Influenza Virus Vaccine Quad .5 mL IM 6+ MO (FLUZONE/FLULAVAL/F LUARIX) Unknown Completed [facility] SARS-COV-2 COVID-19 VACCINE - (MODERNA) Unknown Completed [facility] TDAP Unknown Completed [facility] Influenza Virus Vaccine Quad .5 mL IM 6+ MO (FLUZONE/FLULAVAL/F LUARIX) Unknown Completed [facility] SARS-COV-2 COVID-19 VACCINE - (MODERNA) Unknown Completed [facility] TDAP Unknown Completed [facility] Influenza Virus Vaccine Quad .5 mL IM 6+ MO (FLUZONE/FLULAVAL/F LUARIX) Unknown Completed [facility] SARS-COV-2 COVID-19 VACCINE - (MODERNA) Unknown Completed [facility] TDAP Unknown Completed [facility] Influenza Virus Vaccine Quad .5 mL IM 6+ MO (FLUZONE/FLULAVAL/F LUARIX) Unknown Completed [facility] SARS-COV-2 COVID-19 VACCINE - (MODERNA) Unknown Completed [facility] TDAP Unknown Completed [facility] Influenza Virus Vaccine Quad .5 mL IM 6+ MO (FLUZONE/FLULAVAL/F LUARIX) Unknown Completed [facility] SARS-COV-2 COVID-19 VACCINE - (MODERNA) Unknown Completed [facility] TDAP Unknown Completed [facility] Influenza Virus Vaccine Quad .5 mL IM 6+ MO (FLUZONE/FLULAVAL/F LUARIX) Unknown Completed [facility] SARS-COV-2 COVID-19 VACCINE - (MODERNA) Unknown Completed [facility] Vital Signs Vital Name Observation Time Observation Value Comments S ource Body Weight 2024-03-07 00:00:00 212.2 [lb_av] [facility] BP Diastolic 2024-03-07 00:00:00 74 mm[Hg] [facility] BP Systolic 2024-03-07 00:00:00 138 mm[Hg] [facility] BMI (Body Mass Index) 2024-03-07 00:00:00 34.2 kg/m2 [facility] Height 2024-03-07 00:00:00 66 [in_i] [facility] BMI (Body Mass Index) 2024-01-24 00:00:00 34.2 kg/m2 [facility] BP Diastolic 2024-01-24 00:00:00 79 mm[Hg] [facility] Height 2024-01-24 00:00:00 66 [in_i] [facility] BP Systolic 2024-01-24 00:00:00 165 mm[Hg] [facility] Body Weight 2024-01-24 00:00:00 212.2 [lb_av] [facility] Body Weight 2024-01-23 00:00:00 212.2 [lb_av] [facility] BP Systolic 2024-01-23 00:00:00 174 mm[Hg] [facility] BP Diastolic 2024-01-23 00:00:00 95 mm[Hg] [facility] BMI (Body Mass Index) 2024-01-23 00:00:00 34.2 kg/m2 [facility] Height 2024-01-23 00:00:00 66 [in_i] [facility] height 2023-11-27 15:30:00 66 [in_i] [facility]-27 15:30:00 97.52 [facility] bmi 2023-11-27 15:30:00 34.7 kg/m[facility] temperature 2023-11-27 15:30:00 97.6 [degF] [facility] respiratory [facility] 2023-11-27 15:30:00 16 /min [facility] heart rate 2023-11-27 15:30:00 85 /min [facility] blood [facility] systolic 2023-11-27 15:30:00 164 mm[Hg] [facility] diastolic 2023-11-27 15:30:00 87 mm[Hg] [facility] Systolic blood pressure 2023-07-26 14:17:00 177 mm[Hg] [facility] Diastolic blood pressure 2023-07-26 14:17:00 92 mm[Hg] [facility] Heart rate 2023-07-26 14:17:00 97 /min [facility] Body temperature 2023-07-26 14:17:00 36.39 Vern[facility] Respiratory rate 2023-07-26 14:17:00 18 /min [facility] Body height 2023-07-26 14:17:00 167.6 cm [facility] Body weight 2023-07-26 14:17:00 100.472 kg [facility] BMI 2023-07-26 14:17:00 35.75 kg/m2 [facility] Oxygen saturation in Arterial blood by Pulse oximetry 2023-07-26 14:17:00 97 /min [facility] Systolic blood pressure 2023-06-08 07:00:00 112 mm[Hg] [facility] Diastolic blood pressure 2023-06-08 07:00:00 62 mm[Hg] [facility] Heart rate 2023-06-08 07:00:00 72 /min [facility] Respiratory rate 2023-06-08 07:00:00 20 /min [facility] Oxygen saturation in Arterial blood by Pulse oximetry 2023-06-08 07:00:00 97 /min [facility] Body weight 2023-06-08 02:41:00 108.863 kg [facility] BMI 2023-06-08 02:41:00 38.74 kg/m2 [facility] Body temperature 2023-06-08 02:38:00 36.67 Verna [facility] Body height 2023-06-08 02:34:00 167.6 cm [facility] Systolic blood pressure 2023-02-15 15:53:00 132 mm[Hg] [facility] Diastolic blood pressure 2023-02-15 15:53:00 73 mm[Hg] [facility] Heart rate 2023-02-15 15:53:00 74 /min [facility] Body temperature 2023-02-15 15:53:00 36.44 Verna [facility] Respiratory rate 2023-02-15 15:53:00 16 /min [facility] Body height 2023-02-15 15:53:00 167.6 cm [facility] Body weight 2023-02-15 15:53:00 100.336 kg [facility] BMI 2023-02-15 15:53:00 35.70 kg/m2 [facility] Oxygen saturation in Arterial blood by Pulse oximetry 2023-02-15 15:53:00 100 /min [facility] Systolic blood pressure 2022-11-13 14:08:00 117 mm[Hg] [facility] Diastolic blood pressure 2022-11-13 14:08:00 70 mm[Hg] [facility] Heart rate 2022-11-13 14:08:00 64 /min [facility] Respiratory rate 2022-11-13 14:08:00 12 /min [facility] Oxygen saturation in Arterial blood by Pulse oximetry 2022-11-13 14:08:00 99 /min [facility] Body temperature 2022-11-13 13:38:00 36.39 Verna [facility] Body height 2022-11-13 12:15:00 167.6 cm [facility] Body weight 2022-11-13 12:15:00 95.21 kg [facility] BMI 2022-11-13 12:15:00 33.88 kg/m2 [facility] Systolic blood pressure 2022-11-13 12:15:00 142 mm[Hg] [facility] Diastolic blood pressure 2022-11-13 12:15:00 66 mm[Hg] [facility] Heart rate 2022-11-13 12:15:00 77 /min [facility] Body temperature 2022-11-13 12:15:00 36 Verna [facility] Respiratory rate 2022-11-13 12:15:00 21 /min [facility] Body height 2022-11-13 12:15:00 167.6 cm [facility] Body weight 2022-11-13 12:15:00 95.21 kg [facility] BMI 2022-11-13 12:15:00 33.88 kg/m2 [facility] Oxygen saturation in Arterial blood by Pulse oximetry 2022-11-13 12:15:00 95 /min [facility] Systolic blood pressure 2022-11-03 15:35:00 154 mm[Hg] [facility] Diastolic blood pressure 2022-11-03 15:35:00 86 mm[Hg] [facility] Heart rate 2022-11-03 15:35:00 86 /min [facility] Body temperature 2022-11-03 15:35:00 37 Verna [facility] Respiratory rate 2022-11-03 15:35:00 18 /min [facility] Body height 2022-11-03 15:35:00 167.6 cm [facility] Body weight 2022-11-03 15:35:00 97.523 kg [facility] BMI 2022-11-03 15:35:00 34.70 kg/m2 [facility] Oxygen saturation in Arterial blood by Pulse oximetry 2022-11-03 15:35:00 99 /min [facility] Systolic blood pressure 2022-10-19 12:35:00 159 mm[Hg] Provider Notified [facility] Diastolic blood pressure 2022-10-19 12:35:00 85 mm[Hg] Provider Notified [facility] Heart rate 2022-10-19 12:35:00 94 /min [facility] Body temperature 2022-10-19 12:33:00 36.78 Verna [facility] Respiratory rate 2022-10-19 12:33:00 16 /min [facility] Body height 2022-10-19 12:33:00 167.6 cm [facility] Body weight 2022-10-19 12:33:00 96.616 kg [facility] BMI 2022-10-19 12:33:00 34.38 kg/m2 [facility] Oxygen saturation in Arterial blood by Pulse oximetry 2022-10-19 12:33:00 98 /min [facility] BP Systolic 2024-03-19 09:39:00 109 mm[Hg] Robert Cali BP Diastolic 2024-03-19 09:39:00 74 mm[Hg] Robert Cali Weight Measured 2024-03-19 09:39:00 213.80 pounds Robert Cali Height Measured 2024-03-19 09:39:00 66.00 inches Robert Cali Body Temperature 2024-03-19 09:39:00 98.10 degrees Robert Cali Heart Rate 2024-03-19 09:39:00 69.00 /min Robert Cali Respiratory Rate 2024-03-19 09:39:00 18.00 /min Robert Cali BP Systolic 2024-02-11 10:20:00 161 mm[Hg] Robert Cali BP Diastolic 2024-02-11 10:20:00 85 mm[Hg] Robert Cali Weight Measured 2024-02-11 10:20:00 Robert Cali Height Measured 2024-02-11 10:20:00 Robert Cali Body Temperature 2024-02-11 10:20:00 98.00 degrees Robert Cali Heart Rate 2024-02-11 10:20:00 88.00 /min Robert Cali Respiratory Rate 2024-02-11 10:20:00 17.00 /min Robert Cali BP Systolic 2024-01-30 13:49:00 169 mm[Hg] Robert F Viraj BP Diastolic 2024-01-30 13:49:00 85 mm[Hg] Robert [...] Diastolic 2023-12-11 16:36:00 74 mm[Hg] Robert F Vriaj Weight Measured 2023-12-11 16:36:00 218.00 pounds Robert [...] Systolic blood pressure 2023-09-03 14:41:00 131 mm[Hg] [facility] Diastolic blood pressure 2023-09-03 14:41:00 73 mm[Hg] [facility] Heart rate 2023-09-03 14:41:00 93 /min [facility] Respiratory rate 2023-09-03 14:38:00 20 /min [facility] Body height 2023-09-03 14:38:00 167.6 cm [facility] Body weight 2023-09-03 14:38:00 100.2 kg [facility] BMI 2023-09-03 14:38:00 35.65 kg/m2 [facility] Systolic blood pressure 2023-07-26 14:17:00 177 mm[Hg] [facility] Diastolic blood pressure 2023-07-26 14:17:00 92 mm[Hg] [facility] Heart rate 2023-07-26 14:17:00 97 /min [facility] Body temperature 2023-07-26 14:17:00 36.39 Verna [facility] Respiratory rate 2023-07-26 14:17:00 18 /min [facility] Body height 2023-07-26 14:17:00 167.6 cm [facility] Body weight 2023-07-26 14:17:00 100.472 kg [facility] BMI 2023-07-26 14:17:00 35.75 kg/m2 [facility] Oxygen saturation in Arterial blood by Pulse oximetry 2023-07-26 14:17:00 97 /min [facility] Systolic blood pressure 2023-06-08 07:00:00 112 mm[Hg] [facility] Diastolic blood pressure 2023-06-08 07:00:00 62 mm[Hg] [facility] Heart rate 2023-06-08 07:00:00 72 /min [facility] Respiratory rate 2023-06-08 07:00:00 20 /min [facility] Oxygen saturation in Arterial blood by Pulse oximetry 2023-06-08 07:00:00 97 /min [facility] Body weight 2023-06-08 02:41:00 108.863 kg [facility] BMI 2023-06-08 02:41:00 38.74 kg/m2 [facility] Body temperature 2023-06-08 02:38:00 36.67 Verna [facility] Body height 2023-06-08 02:34:00 167.6 cm [facility] BP Systolic 2023-05-22 08:18:00 134 mm[Hg] Robert F Viraj BP Diastolic 2023-05-22 08:18:00 65 mm[Hg] Robert Cali Weight Measured 2023-05-22 08:18:00 219.00 pounds Robert Cali Height Measured 2023-05-22 08:18:00 66.00 inches Robert Cali Body Temperature 2023-05-22 08:18:00 97.50 degrees Robert Cali Heart Rate 2023-05-22 08:18:00 83.00 /min Robert Cali Respiratory Rate 2023-05-22 08:18:00 19.00 /min Robert Cali Systolic blood pressure 2023-02-15 15:53:00 132 mm[Hg] [facility] Diastolic blood pressure 2023-02-15 15:53:00 73 mm[Hg] [facility] Heart rate 2023-02-15 15:53:00 74 /min [facility] Body temperature 2023-02-15 15:53:00 36.44 Verna [facility] Respiratory rate 2023-02-15 15:53:00 16 /min [facility] Body height 2023-02-15 15:53:00 167.6 cm [facility] Body weight 2023-02-15 15:53:00 100.336 kg [facility] BMI 2023-02-15 15:53:00 35.70 kg/m2 [facility] Oxygen saturation in Arterial blood by Pulse oximetry 2023-02-15 15:53:00 100 /min [facility] Systolic blood pressure 2023-01-22 15:03:00 144 mm[Hg] [facility] Diastolic blood pressure 2023-01-22 15:03:00 83 mm[Hg] [facility] Heart rate 2023-01-22 15:03:00 97 /min [facility] Respiratory rate 2023-01-22 15:00:00 18 /min [facility] Body height 2023-01-22 15:00:00 167.6 cm [facility] Body weight 2023-01-22 15:00:00 95.2 kg [facility] BMI 2023-01-22 15:00:00 33.88 kg/m2 [facility] BP Systolic 2022-12-20 09:52:00 109 mm[Hg] Robert Cali BP Diastolic 2022-12-20 09:52:00 59 mm[Hg] Robert Cali Weight Measured 2022-12-20 09:52:00 217.00 pounds Robert Cali Height Measured 2022-12-20 09:52:00 66.00 inches Robert Cali Body Temperature 2022-12-20 09:52:00 98.40 degrees Robert Cali Heart Rate 2022-12-20 09:52:00 66.00 /min Robert Cali Respiratory Rate 2022-12-20 09:52:00 Robert Cali Systolic blood pressure 2022-11-13 14:08:00 117 mm[Hg] [facility] Diastolic blood pressure 2022-11-13 14:08:00 70 mm[Hg] [facility] Heart rate 2022-11-13 14:08:00 64 /min [facility] Respiratory rate 2022-11-13 14:08:00 12 /min [facility] Oxygen saturation in Arterial blood by Pulse oximetry 2022-11-13 14:08:00 99 /min [facility] Body temperature 2022-11-13 13:38:00 36.39 Verna [facility] Body height 2022-11-13 12:15:00 167.6 cm [facility] Body weight 2022-11-13 12:15:00 95.21 kg [facility] BMI 2022-11-13 12:15:00 33.88 kg/m2 [facility] Systolic blood pressure 2022-11-03 15:35:00 154 mm[Hg] [facility] Diastolic blood pressure 2022-11-03 15:35:00 86 mm[Hg] [facility] Heart rate 2022-11-03 15:35:00 86 /min [facility] Body temperature 2022-11-03 15:35:00 37 Verna [facility] Respiratory rate 2022-11-03 15:35:00 18 /min [facility] Body height 2022-11-03 15:35:00 167.6 cm [facility] Body weight 2022-11-03 15:35:00 97.523 kg [facility] BMI 2022-11-03 15:35:00 34.70 kg/m2 [facility] Oxygen saturation in Arterial blood by Pulse oximetry 2022-11-03 15:35:00 99 /min [facility] BP Systolic 2022-10-12 10:06:00 140 mm[Hg] Robert Cali BP Diastolic 2022-10-12 10:06:00 78 mm[Hg] Robert Cali Weight Measured 2022-10-12 10:06:00 212.20 pounds Robert Cali Height Measured 2022-10-12 10:06:00 66.00 inches Robert Cali Body Temperature 2022-10-12 10:06:00 97.40 degrees Robert Cali Heart Rate 2022-10-12 10:06:00 93.00 /min Robert Cali Respiratory Rate 2022-10-12 10:06:00 Robert Cali Systolic blood pressure 2022-10-04 14:26:00 149 mm[Hg] [facility] Diastolic blood pressure 2022-10-04 14:26:00 76 mm[Hg] [facility] Heart rate 2022-10-04 14:26:00 78 /min [facility] Respiratory rate 2022-10-04 14:21:00 18 /min [facility] Body height 2022-10-04 14:21:00 167.6 cm [facility] Body weight 2022-10-04 14:21:00 96.843 kg [facility] BMI 2022-10-04 14:21:00 34.46 kg/m2 [facility] Systolic blood pressure 2022-07-26 13:22:00 135 mm[Hg] [facility] Diastolic blood pressure 2022-07-26 13:22:00 78 mm[Hg] [facility] Heart rate 2022-07-26 13:22:00 85 /min [facility] Respiratory rate 2022-07-26 13:22:00 18 /min [facility] Body height 2022-07-26 13:22:00 167.6 cm [facility] Body weight 2022-07-26 13:22:00 97.523 kg [facility] BMI 2022-07-26 13:22:00 34.70 kg/m2 [facility] BP Systolic 2022-06-27 13:54:00 132 [...] F Viraj Respiratory Rate 2022-06-21 08:56:00 Robert Cali BP [...] Robert Cali Respiratory Rate 2022-05-23 11:20:00 Robert Clai BP Systolic 2022-05-11 13:46:00 142 mm[Hg] Robert Cali BP Diastolic 2022-05-11 13:46:00 60 mm[Hg] Robert Cali Weight Measured 2022-05-11 13:46:00 225.80 pounds Robert Cali Height Measured 2022-05-11 13:46:00 66.00 inches Robert Cali Body Temperature 2022-05-11 13:46:00 97.80 degrees Robert Cali Heart Rate 2022-05-11 13:46:00 92.00 /min Robert Cali Respiratory Rate 2022-05-11 13:46:00 25.00 /min Robert Cali Systolic blood pressure 2022-02-15 14:59:00 131 mm[Hg] [facility] Diastolic blood pressure 2022-02-15 14:59:00 70 mm[Hg] [facility] Heart rate 2022-02-15 14:59:00 81 /min [facility] Respiratory rate 2022-02-15 14:59:00 18 /min [facility] Body height 2022-02-15 14:59:00 167.6 cm [facility] Body weight 2022-02-15 14:59:00 102.967 kg [facility] BMI 2022-02-15 14:59:00 36.64 kg/m2 [facility] Respiratory rate 2022-01-11 17:11:00 18 /min [facility] Body height 2022-01-11 17:11:00 167.6 cm [facility] Body weight 2022-01-11 17:11:00 100.699 kg [facility] BMI 2022-01-11 17:11:00 35.83 kg/m2 [facility] Systolic blood pressure 2021-08-24 14:24:00 133 mm[Hg] [facility] Diastolic blood pressure 2021-08-24 14:24:00 73 mm[Hg] [facility] Heart rate 2021-08-24 14:24:00 69 /min [facility] Respiratory rate 2021-08-24 14:24:00 18 /min [facility] Body height 2021-08-24 14:24:00 167.6 cm [facility] Body weight 2021-08-24 14:24:00 100.245 kg [facility] BMI 2021-08-24 14:24:00 35.67 kg/m2 [facility] Oxygen saturation in Arterial blood by Pulse oximetry 2021-06-07 15:30:00 96 /min [facility] Body temperature 2021-06-07 14:20:30 37.44 Verna [facility] BP Systolic 2020-07-14 23:18:00 Robert Cali BP Diastolic 2020-07-14 23:18:00 Robert Cali Weight Measured 2020-07-14 23:18:00 Robert Cali Height Measured 2020-07-14 23:18:00 Robert Cali Body Temperature 2020-07-14 23:18:00 Robert Cali Heart Rate 2020-07-14 23:18:00 Robert Cali Respiratory Rate 2020-07-14 23:18:00 Robert Cali Procedures Procedure Date / Time Performed Performing Clinician Source Hysteroscopy Ablation 2024-03-07 00:00:00 [facility] US TRANSVAGINAL 2024-02-08 00:00:00 [facility] MAMMO, screening, digital, bilateral 2024-01-23 00:00:00 [facility] URINALYSIS 2023-06-08 03:45:00 Rhiannon Vizcarra [facility] URINE DRUG (IMMUNOASSAY) - COMPREHENSIVE DRUG SCREEN W/O REFLEX 2023-06-08 03:45:00 Marysol Pabon [facility] URINALYSIS 2023-06-08 03:45:00 Rhiannon Vizcarra [facility] URINE DRUG (IMMUNOASSAY) - COMPREHENSIVE DRUG SCREEN W/O REFLEX 2023-06-08 03:45:00 Marysol Pabon [facility] CT STROKE ANGIOGRAM HEAD 2023-06-08 02:56:58 Rhiannon Vizcarra [facility] CT STROKE ANGIOGRAM NECK 2023-06-08 02:56:58 Rhiannon Vizcarra [facility] HB ECG ROUTINE & RHYTHM STRIP 2023-06-08 02:53:51 Rhiannon Vizcarra [facility] CT STROKE HEAD WO CONTRAST 2023-06-08 02:48:28 Rhiannon Vizcarra [facility] TROPONIN I 2023-06-08 02:45:00 Rhiannon Vizcarra [facility] BASIC METABOLIC PANEL (NA, K , CL, CO2, GLUCOSE, BUN, CREATININE, CA) 2023-06-08 02:45:00 Rhiannon Vizcarra [facility] LITHIUM 2023-06-08 02:45:00 Marysol Pabon [facility] ETHANOL 2023-06-08 02:45:00 Marysol Pabon [facility] CBC WITHOUT DIFF 2023-06-08 02:45:00 Rhiannon Vizcarra [facility] PROTHROMBIN TIME / INR 2023-06-08 02:45:00 Rhiannon Vizcarra [facility] ACTIVATED PARTIAL THRMPLAS CIPRIANO 2023-05-15 6 02:45:00 Rhiannon Vizcarra [facility] EXTRA TUBE LAV 2023-06-08 02:45:00 Marysol Pabon [facility] PROTHROMBIN TIME / INR 2023-06-08 02:45:00 Rhiannon Vizcarra [facility] ACTIVATED PARTIAL THRMPLAS CIPRIANO 2023-05-15 6 02:45:00 Rhiannon Vizcarra [facility] CBC WITHOUT DIFF 2023-06-08 02:45:00 Rhiannon Vizcarra [facility] TROPONIN I 2023-06-08 02:45:00 Rhiannon Vizcarra [facility] BASIC METABOLIC PANEL (NA, K , CL, CO2, GLUCOSE, BUN, CREATININE, CA) 2023-06-08 02:45:00 Rhiannon Vizcarra [facility] ETHANOL 2023-06-08 02:45:00 Marysol Pabon [facility] LITHIUM 2023-06-08 02:45:00 Marysol Pabon [facility] EXTRA TUBE LAV 2023-06-08 02:45:00 Marysol Pabon [facility] POCT GLUCOSE(AGE >30DAYS) 2023-06-08 02:39:00 Rhiannon Vizcarra [facility] POCT GLUCOSE(AGE >30DAYS) 2023-06-08 02:39:00 Rhiannon Vizcarra [facility] IRON PANEL 2023-02-15 16:30:00 Elidia Cordero [facility] FERRITIN SERUM 2023-02-15 16:30:00 Elidia Cordero [facility] LITHIUM 2023-01-22 16:35:00 Rosalind Freed [facility] CONSENT/REFUSAL FOR DIAGNOSI S AND TREATMENT 2023-01-22 14:56:09 Doctor Unassigned, [place] [facility] CONSENT/REFUSAL FOR DIAGNOSI S AND TREATMENT 2023-01-22 14:56:09 Doctor Unassigned, [place] [facility] SURGICAL PATHOLOGY EXAM 2022-11-13 13:05:00 Bossman [facility] ESOPHAGOGASTRODUODENOSCOPY 2022-11-13 12:47:00 Bossman [facility] COLONOSCOPY 2022-11-13 12:47:00 Bossman [facility] ESOPHAGOGASTRODUODENOSCOPY 2022-11-13 12:47:00 Bossman [facility] COLONOSCOPY 2022-11-13 12:47:00 Bossman [facility] COLONOSCOPY (ENDO) 2022-11-13 12:28:[facility] ([facility] 2022-11-13 12:28:53 [facility] COLONOSCOPY (ENDO) 2022-11-13 12:28:53 [facility] EGD (ENDO) 2022-11-13 12:19:29 Jae Holloway [facility] EGD (ENDO) 2022-11-13 12:19:29 Jae Holloway [facility] EGD (ENDO) 2022-11-13 12:19:29 Jae Holloway [facility] CONSENT/REFUSAL FOR DIAGNOSI S AND TREATMENT 2022-11-13 12:17:09 Doctor Unassigned, [place] [facility] CONSENT/REFUSAL FOR DIAGNOSI S AND TREATMENT 2022-11-13 12:17:09 Doctor Unassigned, [place] [facility] ASSIGNMENT OF BENEFITS 2022-11-13 11:59:03 Doctor Unassigned, [place] [facility] ASSIGNMENT OF BENEFITS 2022-11-13 11:59:03 Doctor Unassigned, [place] [facility] ENDOSCOPY PROCEDURE DOCUMENTATION 2022-02 002 05:01:00 Doctor Unassigned, [place] [facility] ENDOSCOPY PROCEDURE DOCUMENTATION 2022-02 002 05:01:00 Doctor Unassigned, [place] [facility] COMP. METABOLIC PANEL (01439) 2022-11-03 16:24:00 Dora Newman [facility] CBC WITH DIFF 2022-11-03 16:24:00 Dora Newman [facility] POCT TEST 2022-11-03 16:24:00 Dora Newman [facility] CBC WITH DIFF 2022-11-03 16:24:00 Dora Newman [facility] POCT TEST 2022-11-03 16:24:00 Dora Newman [facility] COMP. METABOLIC PANEL (43106) 2022-11-03 16:24:00 Dora Newman [facility] URINALYSIS 2022-11-03 16:18:00 Dora Newman [facility] URINALYSIS 2022-11-03 16:18:00 Dora Newman [facility] RAPID STREP SCREEN FOR GROUP A 2022-10-14 2 16:14:00 Dora Newman [facility] RAPID STREP SCREEN FOR GROUP A 2022-10-14 2 16:14:00 Dora Newman [facility] THROAT CULTURE 2022-11-03 16:14:00 Dora Newman [facility] CONSENT/REFUSAL FOR DIAGNOSI S AND TREATMENT 2022-11-03 15:27:05 Doctor Unassigned, [place] [facility] CONSENT/REFUSAL FOR DIAGNOSI S AND TREATMENT 2022-11-03 15:27:05 Doctor Unassigned, [place] [facility] EMERGENCY SERVICES AGREEMENT S AND AUTHORIZATIONS 2022-11-03 05:01:00 Doctor Unassigned, [place] [facility] HELICOBACTER PYLORI ANTIGEN, FECAL BY EIA 2022-10-19 13:44:00 Elidia Cordero [facility] HELICOBACTER PYLORI ANTIGEN, FECAL BY EIA 2022-10-19 13:44:00 Elidia Cordero [facility] FERRITIN SERUM 2022-10-19 13:35:00 Elidia Cordero [facility] IRON PANEL 2022-10-19 13:35:00 Elidia Cordero [facility] CELIAC SCREEN 2022-10-19 13:35:00 Elidia Cordero [facility] LAB ONLY CELIAC SCREEN IGA 2022-10-19 13:35:00 Elidia Cordero [facility] IRON PANEL 2022-10-19 13:35:00 Elidia Cordero [facility] CELIAC SCREEN 2022-10-19 13:35:00 Elidia Cordero [facility] FERRITIN SERUM 2022-10-19 13:35:00 Elidia Cordero [facility] LAB ONLY CELIAC SCREEN IGA 2022-10-19 13:35:00 Elidia Cordero [facility] DISCLOSURE AND CONSENT, MEDI JAVAD AND SURGICAL PROCEDURES 2022-10-19 05:01:00 Doctor Unassigned, [place] [facility] DISCLOSURE AND CONSENT, MEDI JAVAD AND SURGICAL PROCEDURES 2022-10-19 05:01:00 Doctor Unassigned, [place] [facility] REFERRAL- REQUEST/RESPONSE 2022-10-12 05:01:00 Doctor Unassigned, [place] [facility] REFERRAL- REQUEST/RESPONSE 2022-10-12 05:01:00 Doctor Unassigned, [place] [facility] THYROID STIMULATING HORMONE 2022-10-05 15:15:00 Abdiaziz [facility] COMP. METABOLIC PANEL ([id number]) 2022-10-05 15:15:00 Abdiaziz [facility] LIPID PANEL ([id number])(TOTAL CHOLESTEROL, TRIGLYCERIDES, HDL) 2022-10-05 15:15:00 Abdiaziz [facility] LITHIUM 2022-10-05 15:15:00 [facility] 2022-10-05 15:15:00 Abdiaziz [facility] GLYCOSYLATED HEMOGLOBIN (A1C) 2022-10-05 15:15:00 Abdiaziz [facility] CBC WITH DIFF 2022-10-05 15:15:00 Abdiaziz [facility] COMP. METABOLIC PANEL ([id number]) 2022-10-05 15:15:00 Abdiaziz [facility] GLYCOSYLATED HEMOGLOBIN (A1C) 2022-10-05 15:15:00 Abdiaziz [facility] LIPID PANEL ([id number])(TOTAL CHOLESTEROL, TRIGLYCERIDES, HDL) 2022-10-05 15:15:00 Abdiaziz [facility] THYROID STIMULATING HORMONE 2022-10-05 15:15:00 Abdiaziz [facility] LITHIUM 2022-10-05 15:15:00 Sara Hester [facility] ASSIGNMENT OF BENEFITS 2022-10-04 14:17:30 Doctor Unassigned, [place] [facility] ASSIGNMENT OF BENEFITS 2022-10-04 14:17:30 Doctor Unassigned, [place] [facility] LITHIUM 2022-07-26 14:49:00 Angela Sage [facility] PATIENT FINANCIAL POLICY 2022-07-26 13:16:12 Doctor Unassigned, [place] [facility] PATIENT FINANCIAL POLICY 2022-07-26 13:16:12 Doctor Unassigned, [place] [facility] EXTERNAL PROVIDER RECORDS 2022-04-08 06:01:00 Doctor Unassigned, [place] [facility] EXTERNAL PROVIDER RECORDS 2022-04-08 06:01:00 Doctor Unassigned, [place] [facility] EXTERNAL PROVIDER RECORDS 2022-02-21 06:01:00 Doctor Unassigned, [place] [facility] EXTERNAL PROVIDER RECORDS 2022-02-21 06:01:00 Doctor Unassigned, [place] [facility] LITHIUM 2022-02-15 15:58:00 Angela Sage [facility] CONSENT/REFUSAL FOR DIAGNOSI S AND TREATMENT 2022-01-11 17:10:16 Doctor Unassigned, [place] [facility] CONSENT/REFUSAL FOR DIAGNOSI S AND TREATMENT 2022-01-11 17:10:16 Doctor Unassigned, [place] [facility] EXTERNAL PROVIDER RECORDS 2020-11-26 05:01:00 Doctor Unassigned, [place] [facility] Tubal Ligation 1999-02-12 00:00:00 [facility] ical Encounters Start Date/Time End Date/Time Encounter Type Admission Type Attending [facility] Care Department Encounter ID Source 2024-02-21 16:09:00 Outpatient Jae Holloway [facility] [id number] [facility] 2024-02-15 10:03:00 Outpatient Jae Holloway [facility] [id number] [facility] 2023-12-14 15:51:00 Outpatient Jae Holloway [facility] [id number] [facility] 2023-11-27 15:05:01 Outpatient Jae Holloway [facility] [id number] [facility] 2020-12-13 10:09:54 Emergency [facility] [id number] [facility] 2020-12-11 04:02:45 Emergency [facility] [id number] [facility] 2024-04-07 08:45:00 2024-04-07 08:45:00 Outpatient R [facility] [id number] [facility] 2024-03-19 09:33:08 2024-03-19 09:33:08 Outpatient SAM VARGAS [id number] Robert Cali 2024-03-19 00:00:00 2024-03-19 00:00:00 Outpatient Visit [facility] [id number] Robert Cali 2024-03-11 09:00:00 2024-03-11 09:00:00 Outpatient R [facility] [id number] [facility] 2024-03-07 00:00:00 2024-03-07 00:00:00 Talisha Chan MD: [address], [place] [address] , Ph. [facility] - GC_GCBZW_Vt tariq Stu* [id number] [facility] 2024-02-20 00:00:00 2024-02-20 00:00:00 MARC Arteaga: [address], [place] [address] , Ph. [facility] - GC_GCBZW_Gi potter Stu* [id number] [facility] 2024-02-08 00:00:00 2024-02-08 00:00:00 Talisha Chan MD: [address], [place] [address] , Ph. [facility] - GC_GCBZW_Vt tariq Stu* [id number] [facility] 2024-01-30 14:39:39 2024-01-30 14:39:39 Outpatient [facility] [id number] Robert Cali 2024-01-30 00:00:00 2024-01-30 00:00:00 Outpatient Visit [facility] [id number] Robert Cali 2024-01-28 13:45:00 2024-01-28 13:45:00 Outpatient R [facility] [id number] [facility] 2024-01-25 00:00:00 2024-01-25 00:00:00 Travel [id number] [facility] 2024-01-24 00:00:00 2024-01-24 00:00:00 Talisha Chan MD: [address], [place] [id number] , Ph. [facility] - GC[facility]GCBZW_[facility]* [id number] [facility] 2024-01-23 00:00:00 2024-01-23 00:00:00 Talisha Chan MD: [address], [facility] [address], [place] [id number] , Ph. [facility] - GC_GCBZW_[facility]* [id number] [facility] 2024-01-22 09:30:00 2024-01-22 09:30:00 Outpatient R [facility] [id number] [facility] 2024-01-18 00:00:00 2024-01-18 00:00:[address] [facility] [id number] Robert Cali 2024-01-13 00:00:00 2024-01-13 00:00:00 Travel 1.2.840.1 [id number] [id number] [facility] 2024-01-04 16:41:03 2024-01-04 16:41:[address] [facility] [id number] Robert Ambrose Viraj 2024-01-04 00:00:00 2024-01-04 00:00:00 Outpatient Visit [facility] [id number] Robert Cali 2023-12-26 08:50:25 2023-12-26 08:50:25 Outpatient [facility] [id number] Robert Cali 2023-12-19 10:24:52 2023-12-19 10:24:52 Outpatient [facility] [id number] Robert Cali 2023-12-12 00:00:00 2023-12-12 00:00:00 (TEL) CLS CLS [id number] [facility] 2023-12-11 16:28:54 2023-12-11 16:28:54 Outpatient SFA SFA [id number] Robert Cali 2023-12-11 00:00:00 2023-12-11 00:00:00 Outpatient Visit SFA [id number] Robert Cali 2023-12-10 00:00:00 2023-12-10 00:00:00 (TEL) CLS CLS [id number] [facility] 2023-12-05 13:46:14 2023-12-05 13:46:14 Outpatient SFA SFA [id number] Robert Cali 2023-11-30 00:00:00 2023-11-30 00:00:00 (TEL) CLS CLS [id number] [facility] 2023-11-29 00:00:00 2023-11-29 00:00:00 (EMG) EMG CLS CLS [id number] [facility] 2023-11-29 00:00:00 2023-11-29 00:00:00 (EEG) EEG CLS CLS [id number] [facility] 2023-11-27 08:13:37 2023-11-27 08:13:37 Outpatient SFA SFA [id number] Robert Cali 2023-11-27 00:00:00 2023-11-27 00:00:00 Office Visit- Est Pt.- Level 4 CLS CLS [id number] Genaro Navarro Special ties 2023-11-27 00:00:00 2023-11-27 00:00:00 (TEL) CLS CLS [id number] Genaro Marti ties 2023-11-27 00:00:00 2023-11-27 00:00:[address] [facility] [id number] Robert Cali 2023-10-09 00:00:00 2023-11-10 18:22:03 Patient Secure Msg Doctor Unassigned, [place] 1.2.840.1 24515.1.1 3.104.2.7 .3.859060 .8 [id number] [facility] 2023-11-06 13:51:42 2023-11-06 13:51:[address] [facility] [id number] Robert Cali 2023-10-02 00:00:00 2023-11-03 18:20:51 Patient Secure Msg Doctor Unassigned, [place] 1.2.840.1 63365.1.1 3.104.2.7 .3.372555 .8 [id number] [facility] 2023-09-28 00:00:00 2023-10-02 12:14:38 Patient Secure Msg TimTavon 1.2.840.1 25695.1.1 3.104.2.7 .3.497426 .8 [id number] [facility] 2023-09-03 09:30:00 2023-09-03 11:20:53 Outpatient R AMRITAALESHA [facility] [id number] [facility] 2023-09-03 00:00:00 2023-09-03 00:00:00 Travel 1.2.840.1 77532.1.1 3.104.2.7 .3.816344 .8 1.2.840.114 350.1.13.10 4.2.7.3.698 084.8 [id number] [facility] 2023-08-31 00:00:00 2023-08-31 00:00:00 Travel 1.2.840.1 83793.1.1 3.104.2.7 .3.285127 .8 1.2.840.114 350.1.13.10 4.2.7.3.698 084.8 [id number] [facility] 2023-08-27 08:00:00 2023-08-27 08:00:00 Outpatient R ALESHA CROWE [facility] [id number] [facility] 2023-08-24 00:00:00 2023-08-24 00:00:00 Travel 1.2.840.1 79763.1.1 3.104.2.7 .3.141847 .8 1.2.840.114 350.1.13.10 4.2.7.3.698 084.8 [id number] [facility] 2023-08-08 00:00:00 2023-08-08 12:08:14 Case Management Elidia Cordero 1.2.840.1 02472.1.1 3.104.2.7 .3.325299 .8 [id number] [facility] 2023-07-02 00:00:00 2023-08-04 18:20:55 Patient Secure Msg Dominic Keita 1.2.840.1 95159.1.1 3.104.2.7 .3.931862 .8 [id number] [facility] 2023-08-03 00:00:00 2023-08-03 08:18:24 Telephone Elidia Cordero 1.2.840.1 90174.1.1 3.104.2.7 .3.785249 .8 [id number] [facility] 2023-07-30 00:00:00 2023-07-30 15:44:55 Telephone Elidia Cordero 1.2.840.1 40851.1.1 3.104.2.7 .3.110077 .8 [id number] [facility] 2023-07-26 09:30:00 2023-07-26 10:00:00 Office Visit Jose Westbrook Abdullah Azzam 1.2.840.1 39967.1.1 3.104.2.7 .3.229676 .8 [id number] [facility] 2023-07-26 09:30:00 2023-07-26 09:30:00 Outpatient R JOSE WESTBROOK [facility] [id number] [facility] 2023-07-26 00:00:00 2023-07-26 00:00:00 Travel 1.2.840.1 17661.1.1 3.104.2.7 .3.021374 .8 1.2.840.114 350.1.13.10 4.2.7.3.698 084.8 [id number] [facility] 2023-07-18 10:15:00 2023-07-18 10:15:00 Outpatient FARZANA UGALDE [facility] [id number] [facility] 2023-07-16 00:00:00 2023-07-16 00:00:00 Travel 1.2.840.1 70416.1.1 3.104.2.7 .3.470018 .8 1.2.840.114 350.1.13.10 4.2.7.3.698 084.8 [id number] [facility] 2023-07-02 00:00:00 2023-07-02 12:41:14 Telephone Elidia Cordero 1.2.840.1 10745.1.1 3.104.2.7 .3.929050 .8 [id number] [facility] 2023-06-13 00:00:00 2023-06-13 10:19:53 Letter (Out) 1.2.840.1 47040.1.1 3.104.2.7 .3.860196 .8 [id number] [facility] 2023-06-07 21:35:00 2023-06-08 02:20:00 Emergency X MARYSOL PABON, MARYSOL [facility] ERT [id number] [facility] 2023-06-07 21:35:00 2023-06-08 02:20:00 Emergency Marysol Pabon Whitney T 1.2.840.1 72010.1.1 3.104.2.7 .3.326702 .8 [id number] [facility] 2023-06-07 00:00:00 2023-06-07 00:00:00 Travel 1.2.840.1 38905.1.1 3.104.2.7 .3.861112 .8 1.2.840.114 350.1.13.10 4.2.7.3.698 084.8 [id number] [facility] 2023-05-29 00:00:00 2023-06-04 10:54:35 Patient Secure Dominic Ly 1.2.840.1 06105.1.1 3.104.2.7 .3.602204 .8 [id number] [facility] 2023-05-28 08:45:00 2023-05-28 08:45:00 Outpatient DAVIDSON MEYER [facility] [id number] [facility] 2023-05-25 00:00:00 2023-05-25 00:00:00 Travel 1.2.840.1 63774.1.1 3.104.2.7 .3.238240 .8 1.2.840.114 350.1.13.10 4.2.7.3.698 084.8 [id number] [facility] 2023-05-22 08:17:37 2023-05-22 08:17:[address] [facility] [id number] Robert Cali 2023-05-11 00:00:00 2023-05-11 17:06:28 Telephone Elidia Cordero 1.2.840.1 17913.1.1 3.104.2.7 .3.909660 .8 [id number] [facility] 2023-05-09 00:00:00 2023-05-09 17:14:57 Patient Secure Msg Dominic Keita 1.2.840.1 53237.1.1 3.104.2.7 .3.552536 .8 [id number] [facility] 2023-05-08 10:00:00 2023-05-08 10:00:00 Outpatient EMILIA WU [facility] [id number] [facility] 2023-03-28 00:00:00 2023-04-28 18:05:02 Patient Secure Msg Doctor Unassigned, [place] 1.2.840.1 77890.1.1 3.104.2.7 .3.421634 .8 [id number] [facility] 2023-04-18 08:00:00 2023-04-18 08:00:00 Outpatient FARZANA UGALDE [facility] [id number] [facility] 2023-04-17 00:00:00 2023-04-17 00:00:00 Travel 1.2.840.1 87098.1.1 3.104.2.7 .3.365913 .8 1.2.840.114 350.1.13.10 4.2.7.3.698 084.8 [id number] [facility] 2023-04-11 13:00:00 2023-04-11 13:00:00 Outpatient EMILIA WU [facility] [id number] [facility] 2023-04-11 13:00:00 2023-04-11 13:00:00 Outpatient R SP EMILIA [facility] [id number] [facility] 2023-04-04 08:00:00 2023-04-04 08:00:00 Outpatient R [facility] [id number] [facility] 2023-04-02 00:00:00 2023-04-02 00:00:00 Travel 1.2.840.1 12912.1.1 3.104.2.7 .3.069665 .8 1.2.840.114 350.1.13.10 4.2.7.3.698 084.8 [id number] [facility] 2023-03-09 00:00:00 2023-03-09 00:00:00 Telephone Elidia Cordero 1.2.840.1 61838.1.1 3.104.2.7 .3.602671 .8 [id number] [facility] 2023-03-08 00:00:00 2023-03-08 00:00:00 Telephone Elidia Cordero 1.2.840.1 70703.1.1 3.104.2.7 .3.724847 .8 [id number] [facility] 2023-02-28 10:15:00 2023-02-28 10:15:00 Outpatient R SARA HESTER KIMBERLY [facility] [id number] [facility] 2023-02-27 00:00:00 2023-02-27 00:00:00 Travel 1.2.840.1 91062.1.1 3.104.2.7 .3.580455 .8 1.2.840.114 350.1.13.10 4.2.7.3.698 084.8 [id number] [facility] 2023-02-15 10:30:00 2023-02-15 10:45:00 Educational Technologist Visit Jewel Cunha [facility] 1.2.840.1 96959.1.1 3.104.2.7 .3.573356 .8 [id number] [facility] 2023-02-15 09:30:00 2023-02-15 10:00:00 Office Visit César Elidia Marcial 1.2.840.1 64383.1.1 3.104.2.7 .3.737270 .8 [id number] [facility] 2023-02-15 09:30:00 2023-02-15 09:30:00 Outpatient R JEWEL CUNHA [facility] [id number] [facility] 2023-02-15 00:00:00 2023-02-15 00:00:00 Travel 1.2.840.1 76313.1.1 3.104.2.7 .3.828039 .8 1.2.840.114 350.1.13.10 4.2.7.3.698 084.8 [id number] [facility] 2023-01-23 13:00:00 2023-01-23 13:00:00 Outpatient R JENNY ARRIAGA RIZWAN [facility] [id number] [facility] 2023-01-22 10:15:00 2023-01-22 10:30:00 Educational Technologist Visit Dexter Dias Navin Pcp-Lab 1.2.840.1 92615.1.1 3.104.2.7 .3.754245 .8 [id number] [facility] 2023-01-22 09:30:00 2023-01-22 10:07:50 Outpatient R DEXTER DIAS [facility] [id number] [facility] 2023-01-22 00:00:00 2023-01-22 00:00:00 Orders Only Doctor Unassigned, [place] 1.2.840.1 02547.1.1 3.104.2.7 .3.669914 .8 [id number] [facility] 2023-01-22 00:00:00 2023-01-22 00:00:00 Travel 1.2.840.1 17049.1.1 3.104.2.7 .3.583381 .8 1.2.840.114 350.1.13.10 4.2.7.3.698 084.8 [id number] [facility] 2023-01-15 00:00:00 2023-01-15 00:00:00 Telephone Elidia Cordero 1.2.840.1 33437.1.1 3.104.2.7 .3.034736 .8 [id number] [facility] 2023-01-12 00:00:00 2023-01-12 00:00:00 Patient Secure Msg Dominic Keita 1.2.840.1 69642.1.1 3.104.2.7 .3.469969 .8 [id number] [facility] 2022-12-29 09:30:00 2022-12-29 09:30:00 Outpatient JENNY SESAY RIZWAN [facility] [id number] [facility] 2022-12-29 00:00:00 2022-12-29 00:00:00 Telephone Elidia Cordero 1.2.840.1 35108.1.1 3.104.2.7 .3.135716 .8 [id number] [facility] 2022-12-29 00:00:00 2022-12-29 00:00:00 Telephone Elidia Cordero 1.2.840.1 68338.1.1 3.104.2.7 .3.365842 .8 [id number] [facility] 2022-12-28 00:00:00 2022-12-28 00:00:00 Case Management Elidia Cordero 1.2.840.1 78085.1.1 3.104.2.7 .3.979284 .8 [id number] [facility] 2022-12-20 16:00:00 2022-12-20 16:46:31 Outpatient R [facility] [id number] [facility] 2022-12-20 09:49:08 2022-12-20 09:49:08 Outpatient [facility] [id number] Robert Cali 2022-12-19 00:00:00 2022-12-19 00:00:00 Travel 1.2.840.1 28690.1.1 3.104.2.7 .3.652430 .8 1.2.840.114 350.1.13.10 4.2.7.3.698 084.8 [id number] [facility] 2022-12-18 09:30:00 2022-12-18 09:30:00 Outpatient R [facility] [id number] [facility] 2022-12-18 00:00:00 2022-12-18 00:00:00 Telephone Elidia Cordero 1.2.840.1 75803.1.1 3.104.2.7 .3.626201 .8 [id number] [facility] 2022-12-14 00:00:00 2022-12-14 00:00:00 Patient Secure Msg Doctor Unassigned, [place] 1.2.840.1 14592.1.1 3.104.2.7 .3.064790 .8 [id number] [facility] 2022-12-11 08:45:00 2022-12-11 08:45:00 Outpatient R [facility] [id number] [facility] 2022-12-10 00:00:00 2022-12-10 00:00:00 Outpatient GC_GCBZW_Ka diyala_S [facility] [id number] [facility] 2022-12-08 15:30:00 2022-12-08 15:30:00 Outpatient R ARRIAGAJENNY RIZWAN [facility] [id number] [facility] 2022-12-06 08:00:00 2022-12-06 08:00:00 Outpatient R RUBÉN ONEIDA [facility] [id number] [facility] 2022-11-29 00:00:00 2022-11-29 00:00:00 Telephone Elidia Corderoraven 1.2.840.1 55952.1.1 3.104.2.7 .3.745113 .8 [id number] [facility] 2022-11-27 00:00:00 2022-11-27 00:00:00 Telephone Elidia Corderoreinierm 1.2.840.1 86493.1.1 3.104.2.7 .3.073427 .8 [id number] [facility] 2022-11-27 00:00:00 2022-11-27 00:00:00 Telephone Elidia Corderoreinierm 1.2.840.1 35129.1.1 3.104.2.7 .3.537266 .8 [id number] [facility] 2022-11-23 00:00:00 2022-11-23 00:00:00 Telephone Sharona Corderoklarissakarl [facility] 1.2.840.1 33698.1.1 3.104.2.7 .3.936718 .8 [id number] [facility] 2022-11-23 00:00:00 2022-11-23 00:00:00 Telephone Sharona Corderoklarissakarl [place] 1.2.840.1 82542.1.1 3.104.2.7 .3.642956 .8 [id number] [facility] 2022-11-22 09:30:00 2022-11-22 09:30:00 Outpatient R [facility] [id number] [facility] 2022-11-16 00:00:00 2022-11-16 00:00:00 Telephone Elidia Cordero 1.2.840.1 59471.1.1 3.104.2.7 .3.314903 .8 [id number] [facility] 2022-11-16 00:00:00 2022-11-16 00:00:00 Patient Secure Msg OnurfidelinaDominic johnson 1.2.840.1 69992.1.1 3.104.2.7 .3.123116 .8 [id number] [facility] 2022-11-13 06:59:00 2022-11-13 09:48:00 Outpatient R BOSSMAN DOMINIC [facility] [id number] [facility] 2022-11-13 06:59:00 2022-11-13 09:48:00 Hospital Encounter MlDominic johnson 1.2.840.1 75385.1.1 3.104.2.7 .3.597871 .8 [id number] [facility] 2022-11-13 07:58:00 2022-11-13 08:33:00 Anesthesia Event Hunter Cruz Joan 1.2.840.1 91667.1.1 3.104.2.7 .3.239821 .8 [id number] [facility] 2022-11-13 07:15:00 2022-11-13 08:15:00 Surgery MlDominic johnson 1.2.840.1 55298.1.1 3.104.2.7 .3.743895 .8 [id number] [facility] 2022-11-13 00:00:00 2022-11-13 00:00:00 Orders Only Doctor Unassigned, [place] 1.2.840.1 13902.1.1 3.104.2.7 .3.144306 .8 [id number] [facility] 2022-11-13 00:00:00 2022-11-13 00:00:00 Telephone Dominic Keita 1.2.840.1 50754.1.1 3.104.2.7 .3.925002 .8 [id number] [facility] 2022-11-13 00:00:00 2022-11-13 00:00:00 Travel 1.2.840.1 42551.1.1 3.104.2.7 .3.082255 .8 1.2.840.114 350.1.13.10 4.2.7.3.698 084.8 [id number] [facility] 2022-11-10 00:00:00 2022-11-10 00:00:00 Outpatient R RADIOLOGY [facility] [id number] [facility] 2022-11-10 00:00:00 2022-11-10 00:00:00 Patient Secure Msg Dominic Keita 1.2.840.1 93488.1.1 3.104.2.7 .3.715172 .8 [id number] [facility] 2022-11-09 00:00:00 2022-11-09 00:00:00 Patient Secure Msg Doctor Unassigned, [place] 1.2.840.1 91735.1.1 3.104.2.7 .3.294825 .8 [id number] [facility] 2022-11-07 00:00:00 2022-11-07 00:00:00 Patient Secure Msg Doctor Unassigned, [place] 1.2.840.1 01969.1.1 3.104.2.7 .3.543420 .8 [id number] [facility] 2022-11-03 10:36:00 2022-11-03 13:16:00 Emergency X DORA NEWMAN [facility] ERT [id number] [facility] 2022-11-03 10:36:00 2022-11-03 13:16:00 Emergency Dora Newman 1.2.840.1 42534.1.1 3.104.2.7 .3.214130 .8 [id number] [facility] 2022-11-03 00:00:00 2022-11-03 00:00:00 Travel 1.2.840.1 37892.1.1 3.104.2.7 .3.420007 .8 1.2.840.114 350.1.13.10 4.2.7.3.698 084.8 [id number] [facility] 2022-10-30 00:00:00 2022-10-30 00:00:00 Case Management Elidia Cordero 1.2.840.1 22057.1.1 3.104.2.7 .3.553223 .8 [id number] [facility] 2022-10-19 08:30:00 2022-10-19 08:45:00 Educational Technologist Visit Jewel Cunha [facility] 1.2840.1 00245.1.1 3.104.2.7 .3.134494 .8 [id number] [facility] 2022-10-19 07:30:00 2022-10-19 08:15:30 Outpatient R JEWEL CUNHA [facility] [id number] [facility] 2022-10-19 07:30:00 2022-10-19 08:15:30 Office Visit Jewel Cunha Abdullah Azzam 1.2.840.1 94521.1.1 3.104.2.7 .3.958795 .8 [id number] [facility] 2022-10-19 00:00:00 2022-10-19 00:00:00 Orders Only Doctor Unassigned, [place] 1.2.840.1 34445.1.1 3.104.2.7 .3.043710 .8 [id number] [facility] 2022-10-18 00:00:00 2022-10-18 00:00:00 Travel 1.2.840.1 58825.1.1 3.104.2.7 .3.100294 .8 1.2.840.114 350.1.13.10 4.2.7.3.698 084.8 [id number] [facility] 2022-10-12 09:56:06 2022-10-12 09:56:[address] [facility] [id number] Robert Cali 2022-10-12 00:00:00 2022-10-12 00:00:00 Orders Only Doctor Unassigned, [place] 1.2.840.1 37436.1.1 3.104.2.7 .3.502272 .8 [id number] [facility] 2022-10-05 10:15:00 2022-10-05 10:30:00 Educational Technologist Visit Kath Vences, [facility] 1.2.840.1 80950.1.1 3.104.2.7 .3.501866 .8 [id number] [facility] 2022-10-05 10:15:00 2022-10-05 10:15:00 Outpatient R KATH VENCES [facility] [id number] [facility] 2022-10-04 09:30:00 2022-10-04 10:30:11 Outpatient R DEXTER DIAS [facility] [id number] [facility] 2022-10-04 00:00:00 2022-10-04 00:00:00 Orders Only Doctor Unassigned, [place] 1.2.840.1 76020.1.1 3.104.2.7 .3.965724 .8 [id number] [facility] 2022-10-04 00:00:00 2022-10-04 00:00:00 Travel 1.2.840.1 76851.1.1 3.104.2.7 .3.297593 .8 1.2.840.114 350.1.13.10 4.2.7.3.698 084.8 [id number] [facility] 2022-10-02 00:00:00 2022-10-02 00:00:00 Travel 1.2.840.1 39107.1.1 3.104.2.7 .3.993825 .8 1.2.840.114 350.1.13.10 4.2.7.3.698 084.8 [id number] [facility] 2022-09-06 08:45:00 2022-09-06 08:45:00 Outpatient SARA DELGADILLO KIMBERLY [facility] [id number] [facility] 2022-09-06 00:00:00 2022-09-06 00:00:00 Travel 1.2.840.1 67881.1.1 3.104.2.7 .3.985111 .8 1.2.840.114 350.1.13.10 4.2.7.3.698 084.8 [id number] [facility] 2022-07-26 11:00:00 2022-07-26 11:15:00 Educational Technologist Visit Pathology Pcp-Lab 1.2.840.1 17234.1.1 3.104.2.7 .3.435546 .8 [id number] [facility] 2022-07-26 08:45:00 2022-07-26 09:37:46 Outpatient SARA DELGADILLO KIMBERLY [facility] [id number] [facility] 2022-07-26 00:00:00 2022-07-26 00:00:00 Orders Only Doctor Unassigned, [place] 1.2.840.1 12891.1.1 3.104.2.7 .3.566463 .8 [id number] [facility] 2022-07-26 00:00:00 2022-07-26 00:00:00 Travel 1.2.840.1 04862.1.1 3.104.2.7 .3.855066 .8 1.2.840.114 350.1.13.10 4.2.7.3.698 084.8 [id number] [facility] 2022-07-24 13:24:12 2022-07-24 13:24:12 Outpatient SFA [facility] [id number] Robert Cali 2022-06-27 13:49:18 2022-06-27 13:49:18 Outpatient SFA [facility] [id number] [id number] Robert Cali 2022-06-21 08:52:50 2022-06-21 08:52:50 Outpatient SFA [facility] [id number] Robert Cali 2022-06-15 15:23:34 2022-06-15 15:23:34 Outpatient SFA [facility] [id number] Robert Cali 2022-05-31 08:45:00 2022-05-31 08:45:00 Outpatient SARA DELGADILLO KIMBERLY [facility] [id number] [facility] 2022-05-30 11:55:27 2022-05-30 11:55:27 Outpatient SFA [facility] [id number] Robert Cali 2022-05-23 11:17:29 2022-05-23 11:17:29 Outpatient SFA [facility] [id number] [id number] Robert Cali 2022-05-12 08:06:11 2022-05-12 08:06:11 Outpatient SFA [facility] [id number] Robert Ambrose Viraj 2022-05-11 13:45:44 2022-05-11 13:45:44 Outpatient SFA [facility] [id number] Robert Cali 2022-04-08 00:00:00 2022-04-08 00:00:00 Orders Only Doctor Unassigned, [place] 1.2.840.1 87614.1.1 3.104.2.7 .3.566081 .8 [id number] [facility] 2022-02-21 00:00:00 2022-02-21 00:00:00 Orders Only Doctor Unassigned, [place] 1.2.840.1 59258.1.1 3.104.2.7 .3.471629 .8 [id number] [facility] 2022-02-15 13:30:00 2022-02-15 13:45:00 Educational Technologist Visit Pathology Pcp-Lab 1.2.840.1 25945.1.1 3.104.2.7 .3.381003 .8 [id number] [facility] 2022-02-15 08:45:00 2022-02-15 10:52:26 Outpatient R DEXTER DIAS [facility] [id number] [facility] 2022-02-15 00:00:00 2022-02-15 00:00:00 Travel 1.2.840.1 98969.1.1 3.104.2.7 .3.591831 .8 1.2.840.114 350.1.13.10 4.2.7.3.698 084.8 [id number] [facility] 2022-01-11 11:00:00 2022-01-11 12:39:46 Outpatient R SARA HESTER KIMBERLY [facility] [id number] [facility] 2022-01-11 00:00:00 2022-01-11 00:00:00 Orders Only Doctor Unassigned, [place] 1.2.840.1 68817.1.1 3.104.2.7 .3.884866 .8 [id number] [facility] 2022-01-11 00:00:00 2022-01-11 00:00:00 Travel 1.2.840.1 85882.1.1 3.104.2.7 .3.435821 .8 1.2.840.114 350.1.13.10 4.2.7.3.698 084.8 [id number] [facility] 2021-11-24 09:30:00 2021-11-24 09:30:00 Outpatient R IGOR SAAVEDRA [facility] [id number] [facility] 2021-11-16 11:00:00 2021-11-16 11:00:00 Outpatient R SARA HESTER KIMBERLY [facility] [id number] [facility] 2021-10-26 08:00:00 2021-10-26 08:00:00 [facility] [id number] [facility] 2021-10-20 10:00:00 2021-10-20 10:00:00 Outpatient R IGOR SAAVEDRA [facility] [id number] [facility] 2021-10-03 14:30:00 2021-10-03 14:30:00 Outpatient R DAVIDSON SUTHERLAND [facility] [id number] [facility] 2021-09-21 09:30:00 2021-09-21 09:30:00 [facility] [id number] [facility] 2021-08-24 09:30:00 2021-08-24 10:41:34 Outpatient R DEXTER DIAS [facility] [id number] [facility] 2021-08-24 00:00:00 2021-08-24 00:00:00 Travel 1.2.840.1 75234.1.1 3.104.2.7 .3.583781 .8 1.2.840.114 350.1.13.10 4.2.7.3.698 084.8 [id number] [facility] 2021-07-25 09:00:00 2021-07-25 09:00:00 Outpatient R DEXTER DIAS [facility] [id number] [facility] 2021-06-22 11:15:00 2021-06-22 12:18:05 Outpatient R SARA HESTER KIMBERLY [facility] [id number] [facility] 2021-06-22 11:15:00 2021-06-22 11:15:00 Outpatient R KACIE, SARA HESTER SARA [facility] [id number] [facility] 2021-06-22 00:00:00 2021-06-22 00:00:00 Travel 1.2.840.1 24219.1.1 3.104.2.7 .3.920986 .8 1.2840.114 350.1.13.10 4.2.7.3.698 084.8 [id number] [facility] 2021-06-20 11:15:00 2021-06-20 11:15:00 [facility] [id number] [facility] 2021-06-20 11:15:00 2021-06-20 11:15:00 Outpatient R DEXTER DIAS [facility] [id number] [facility] 2021-06-08 09:20:00 2021-06-08 09:20:00 Outpatient R HILARY MOORE STRAHIL [facility] [id number] [facility] 2021-06-08 00:00:00 2021-06-08 00:00:00 Patient Secure Igor William Rai [facility] 1.840.114 350.1.13.10 4.2.7.2.686 [id number] [facility] 2021-06-07 09:13:00 2021-06-07 10:50:00 Emergency X GIGI MONROY [facility] ERT [id number] [facility] 2021-06-07 09:13:00 2021-06-07 10:50:00 Emergency Gigi Monroy [facility] 1.840.114 350.1.13.10 4.2.7.2.686 [id number] [facility] 2021-06-07 09:13:00 2021-06-07 10:50:00 Emergency Gigi Monroy 1.2.840.1 04825.1.1 3.104.2.7 .3.027383 .8 [id number] [facility] 2021-06-07 00:00:00 2021-06-07 00:00:00 Outpatient IGOR Castaneda RAI [facility] [id number] [facility] 2021-06-07 00:00:00 2021-06-07 00:00:00 Orders Only Doctor Unassigned, [place] [facility] 1.2.840.114 350.1.13.10 4.2.7.2.686 [id number] [facility] 2021-06-07 00:00:00 2021-06-07 00:00:00 Travel 1.2.840.1 04381.1.1 3.104.2.7 .3.251350 .8 1.2.840.114 350.1.13.10 4.2.7.3.698 084.8 [id number] [facility] 2021-06-07 00:00:00 2021-06-07 00:00:00 Orders Only Doctor Unassigned, [place] 1.2.840.1 77395.1.1 3.104.2.7 .3.053269 .8 [id number] [facility] 2021-06-03 00:00:00 2021-06-03 00:00:00 Travel 1.2.840.1 21319.1.1 3.104.2.7 .3.294032 .8 1.2.840.114 350.1.13.10 4.2.7.3.698 084.8 [id number] [facility] 2021-05-27 00:00:00 2021-05-27 00:00:00 Outpatient IGOR Castaneda RAI [facility] [id number] [facility] 2021-05-27 00:00:00 2021-05-27 00:00:00 Outpatient Tonya SAAVEDRA IGOR [facility] [id number] [facility] 2021-05-25 00:00:00 2021-05-25 00:00:00 Patient Secure Msg Doctor Unassigned, [place] [facility] 1.2.840.114 350.1.13.10 4.2.7.2.686 [id number] [facility] 2021-05-25 00:00:00 2021-05-25 00:00:00 Patient Secure Msg Doctor Unassigned, [place] 1.2.840.1 73670.1.1 3.104.2.7 .3.670354 .8 [id number] [facility] 2021-05-20 00:00:00 2021-05-20 00:00:00 Telephone Jones Zane Best 1.2.840.1 25625.1.1 3.104.2.7 .3.474231 .8 [id number] [facility] 2021-05-20 00:00:00 2021-05-20 00:00:00 Telephone Robert Panga Zane 1.2.840.1 85175.1.1 3.104.2.7 .3.678333 .8 [id number] [facility] 2021-05-18 00:00:00 2021-05-18 00:00:00 Travel 1.2.840.1 64555.1.1 3.104.2.7 .3.765746 .8 1.2.840.114 350.1.13.10 4.2.7.3.698 084.8 [id number] [facility] 2021-05-18 00:00:00 2021-05-18 00:00:00 Travel 1.2.840.1 80273.1.1 3.104.2.7 .3.513912 .8 1.2.840.114 350.1.13.10 4.2.7.3.698 084.8 [id number] [facility] 2021-05-17 13:15:00 2021-05-17 13:30:00 Educational Technologist Visit Pcp-Lab Igor Saavedra [facility] 1.2.840.114 350.1.13.10 4.2.7.2.686 [id number] [facility] 2021-05-17 13:15:00 2021-05-17 13:30:00 Educational Technologist Visit Igor Saavedra Pcp-Lab 1.2.840.1 19811.1.1 3.104.2.7 .3.123510 .8 [id number] [facility] 2021-05-17 13:15:00 2021-05-17 13:30:00 Educational Technologist Visit Igor Saavedra Pcp-Lab 1.2.840.1 36992.1.1 3.104.2.7 .3.100176 .8 [id number] [facility] 2021-05-17 09:00:00 2021-05-17 10:25:05 Outpatient R IGOR SAAVEDRA [facility] [id number] [facility] 2021-05-17 09:00:00 2021-05-17 10:25:05 Office Visit Igor Saavedra Neeharika 1.2.840.1 21835.1.1 3.104.2.7 .3.882013 .8 [id number] [facility] 2021-05-17 09:00:00 2021-05-17 10:25:05 Outpatient R IGOR SAAVEDRA [facility] [id number] [facility] 2021-05-17 09:30:00 2021-05-17 09:30:00 Outpatient R IGOR SAAVEDRA [facility] [id number] [facility] 2021-05-17 00:00:00 2021-05-17 00:00:00 Travel 1.2.840.1 09879.1.1 3.104.2.7 .3.233215 .8 1.2.840.114 350.1.13.10 4.2.7.3.698 084.8 [id number] [facility] 2021-05-17 00:00:00 2021-05-17 00:00:00 Travel 1.2.840.1 71661.1.1 3.104.2.7 .3.914460 .8 1.2.840.114 350.1.13.10 4.2.7.3.698 084.8 [id number] [facility] 2021-04-26 09:00:00 2021-04-26 09:00:00 Outpatient R [facility] [id number] [facility] 2021-04-26 09:00:00 2021-04-26 09:00:00 Outpatient R WENDY, AVELINO [facility] [id number] [facility] 2021-04-20 08:45:00 2021-04-20 08:45:00 Outpatient SARA DELGADILLO KIMBERLY [facility] [id number] [facility] 2021-04-11 08:40:00 2021-04-11 08:40:00 Outpatient SALLY FIGUEROA HOWARD [facility] [id number] [facility] 2021-04-11 08:40:00 2021-04-11 08:40:00 Outpatient SALLY FIGUEROA HOWARD [facility] [id number] [facility] 2021-03-21 08:00:00 2021-03-21 08:00:00 Outpatient SALLY FIGUEROA HOWARD [facility] [id number] [facility] 2021-03-17 00:00:00 2021-03-17 00:00:00 Patient Secure Msg Doctor Unassigned, [place] [facility] 1.2.840.114 350.1.13.10 4.2.7.2.686 [id number] [facility] 2021-03-17 00:00:00 2021-03-17 00:00:00 Patient Secure Msg Doctor Unassigned, [place] 1.2.840.1 87218.1.1 3.104.2.7 .3.217914 .8 [id number] [facility] 2021-03-17 00:00:00 2021-03-17 00:00:00 Patient Secure Msg Doctor Unassigned, [place] 1.2.840.1 21527.1.1 3.104.2.7 .3.492602 .8 [id number] [facility] 2021-03-16 13:15:00 2021-03-16 13:30:00 Educational Technologist Visit Salbador Lockwood Pcp-Lab 1.2.840.1 44566.1.1 3.104.2.7 .3.530597 .8 [id number] [facility] 2021-03-16 13:15:00 2021-03-16 13:30:00 Educational Technologist Visit Salbador Lockwood Pcp-Lab 1.2.840.1 84708.1.1 3.104.2.7 .3.810128 .8 [id number] [facility] 2021-03-16 13:15:00 2021-03-16 13:15:00 Outpatient SALBADOR CRONIN [facility] [id number] [facility] 2021-03-16 12:00:00 2021-03-16 12:09:51 Outpatient SARA DELGADILLO KIMBERLY [facility] [id number] [facility] 2021-03-16 12:00:00 2021-03-16 12:09:51 Outpatient SARA DELGADILLO KIMBERLY [facility] [id number] [facility] 2021-03-16 12:00:00 2021-03-16 12:00:00 [facility] [id number] 2021-03-16 00:00:00 2021-03-16 00:00:00 Travel 1.2.840.1 34055.1.1 3.104.2.7 .3.880949 .8 1.2.840.114 350.1.13.10 4.2.7.3.698 084.8 [id number] [facility] 2021-03-16 00:00:00 2021-03-16 00:00:00 Travel 1.2.840.1 29726.1.1 3.104.2.7 .3.150785 .8 1.2.840.114 350.1.13.10 4.2.7.3.698 084.8 [id number] [facility] 2021-03-11 09:44:00 2021-03-11 13:06:00 Emergency X HALIMA CONNOR [facility] ERT [id number] [facility] 2021-03-11 09:44:00 2021-03-11 13:06:00 Emergency Halima Connor 1.2.840.1 69285.1.1 3.104.2.7 .3.207102 .8 [id number] [facility] 2021-03-11 09:44:00 2021-03-11 13:06:00 Emergency X HALIMA CONNOR [facility] ERT [id number] [facility] 2021-03-11 09:44:00 2021-03-11 13:06:00 Emergency Halima Connor 1.2.840.1 21285.1.1 3.104.2.7 .3.761119 .8 [id number] [facility] 2021-03-11 09:44:00 2021-03-11 13:06:00 Emergency X HALIMA CONNOR [facility] ERT [id number] [facility] 2021-03-11 09:44:00 2021-03-11 09:44:00 Emergency X HALIMA CONNOR [facility] ERT [id number] [facility] 2021-03-11 00:00:00 2021-03-11 00:00:00 Travel 1.2.840.1 65843.1.1 3.104.2.7 .3.073428 .8 1.2.840.114 350.1.13.10 4.2.7.3.698 084.8 [id number] [facility] 2021-03-11 00:00:00 2021-03-11 00:00:00 Travel 1.2.840.1 90701.1.1 3.104.2.7 .3.271051 .8 1.2.840.114 350.1.13.10 4.2.7.3.698 084.8 [id number] [facility] 2021-03-08 15:00:00 2021-03-08 15:15:00 Educational Technologist Visit Salbador Lockwood Pcp-Lab 1.2.840.1 13923.1.1 3.104.2.7 .3.595244 .8 [id number] [facility] 2021-03-08 15:00:00 2021-03-08 15:15:00 Educational Technologist Visit Salbador Lockwood Pcp-Lab 1.2.840.1 57667.1.1 3.104.2.7 .3.417023 .8 [id number] [facility] 2021-03-08 15:00:00 2021-03-08 15:00:00 Outpatient R SALBADOR LOCKWOOD [facility] [id number] [facility] 2021-01-31 10:15:00 2021-01-31 10:55:06 Outpatient DEXTER MIRELES [facility] [id number] [facility] 2020-12-29 08:00:00 2020-12-29 08:41:00 [id number] 2020-12-29 08:00:00 2020-12-29 08:41:00 [facility] [id number] [facility] 2020-12-29 00:00:00 2020-12-29 00:00:00 Travel 1.2.840.1 90456.1.1 3.104.2.7 .3.082865 .8 1.2.840.114 350.1.13.10 4.2.7.3.698 084.8 [id number] [facility] 2020-12-29 00:00:00 2020-12-29 00:00:00 Travel 1.2.840.1 81173.1.1 3.104.2.7 .3.002180 .8 1.2.840.114 350.1.13.10 4.2.7.3.698 084.8 [id number] [facility] 2020-12-22 09:30:00 2020-12-22 09:30:00 Outpatient R SELFDEXTER [facility] [id number] [facility] 2020-12-22 09:30:00 2020-12-22 09:30:00 Outpatient R SELF, [facility] [id number] [facility] 2020-11-26 00:00:00 2020-11-26 00:00:00 Orders Only Doctor Unassigned, [place] [facility] 1.2.840.114 350.1.13.10 4.2.7.2.686 [id number] [facility] 2020-11-10 09:30:00 2020-11-10 09:30:00 Outpatient R ROBERT NOWAK [facility] [id number] [facility] 2020-11-10 00:00:00 2020-11-10 00:00:00 Orders Only Doctor Unassigned, [place] 1.2.840.1 70745.1.1 3.104.2.7 .3.816937 .8 [id number] [facility] 2020-11-10 00:00:00 2020-11-10 00:00:00 Travel 1.2.840.1 68088.1.1 3.104.2.7 .3.250985 .8 1.2.840.114 350.1.13.10 4.2.7.3.698 084.8 [id number] [facility] 2020-10-11 08:00:00 2020-10-11 08:00:00 Outpatient R SELF [facility] [id number] [facility] 2020-10-11 00:00:00 2020-10-11 00:00:00 Travel 1.2.840.1 38144.1.1 3.104.2.7 .3.431391 .8 1.2.840.114 350.1.13.10 4.2.7.3.698 084.8 [id number] [facility] 2020-09-13 08:00:00 2020-09-13 08:00:00 Outpatient R SELF [facility] [id number] [facility] 2020-09-13 00:00:00 2020-09-13 00:00:00 Travel 1.2.840.1 22652.1.1 3.104.2.7 .3.238681 .8 1.2.840.114 350.1.13.10 4.2.7.3.698 084.8 [id number] [facility] 2020-09-02 16:12:00 2020-09-02 20:21:00 Emergency Patti Rose 1.2.840.1 79344.1.1 3.104.2.7 .3.909218 .8 [id number] [facility] 2020-09-02 16:12:00 2020-09-02 20:21:00 Emergency RosePatti [facility] 1.2.840.114 350.1.13.10 4.2.7.2.686 [id number] 2020-09-02 00:00:00 2020-09-02 00:00:00 Travel 1.2.840.1 16223.1.1 3.104.2.7 .3.556147 .8 1.2.840.114 350.1.13.10 4.2.7.3.698 084.8 [id number] [facility] 2020-09-02 00:00:00 2020-09-02 00:00:00 Orders Only Doctor Unassigned, [place] 1.2.840.1 98326.1.1 3.104.2.7 .3.898793 .8 [id number] [facility] 2020-09-02 00:00:00 2020-09-02 00:00:00 Orders Only Doctor Unassigned, [place] [facility] 1.2.840.114 350.1.13.10 4.2.7.2.686 [id number] 2020-08-25 09:15:00 2020-08-25 09:15:00 Outpatient R [facility] [id number] [facility] 2020-08-09 08:45:00 2020-08-09 08:45:00 Outpatient R DEXTER DIAS [facility] [id number] [facility] 2020-06-28 13:45:00 2020-06-28 13:45:00 Outpatient R SALBADOR LOCKWOOD [facility] [id number] [facility] 2020-06-21 15:15:00 2020-06-21 15:15:00 Outpatient R DEXTER DIAS [facility] [id number] [facility] 2020-06-07 08:45:00 2020-06-07 08:45:00 [facility] [id number] [facility] 2020-05-25 08:30:00 2020-05-25 08:30:00 Outpatient R CRISTO MARTINEZ [facility] [id number] [facility] 2020-03-15 13:00:00 2020-03-15 13:00:00 Outpatient R SALBADOR LOCKWOOD [facility] [id number] [facility] 2020-03-08 13:00:00 2020-03-08 13:00:00 [facility] [id number] [facility] 2020-02-16 11:00:00 2020-02-16 11:00:00 [facility] [id number] [facility] 2020-01-27 11:45:00 2020-01-27 11:45:00 Outpatient R SELF [facility] [id number] [facility] 2020-01-19 08:00:00 2020-01-19 08:00:00 [facility] [id number] [facility] 2019-12-22 08:45:00 2019-12-22 08:45:00 [facility] [id number] [facility] 2019-12-05 10:45:00 2019-12-05 10:45:00 Outpatient R JEWEL MORAES [facility] [id number] [facility] 2019-10-23 09:15:00 2019-10-23 09:15:00 Outpatient R KATH DELGADO [facility] [id number] [facility] 2019-10-15 11:30:00 2019-10-15 11:30:00 Outpatient R ROBERT NOWAK [facility] [id number] [facility] 2019-10-01 14:30:00 2019-10-01 14:30:00 Outpatient R ROBERT NOWAK [facility] [id number] [facility] 2019-09-01 08:45:00 2019-09-01 08:45:00 Outpatient R SELF, DEXTER [facility] [id number] [facility] 2019-08-06 13:00:00 2019-08-06 13:00:00 Outpatient ANGELA HERRERA [facility] [id number] [facility] Results Test Description Test Time Test Comments Results Result Co mments Source [facility], apt HPV,rfx 16/18,[id number] 00:00:00* Test Item Value Reference Range Interpretation Comme nts diagnosis: (test code = diagnosis:) SPRCS specimen adequacy: (test cod e = specimen adequacy:) SPRCS performed by: (test code = p erformed by:) SPRCS note: (test code = note:) PAPSMR test methodology: (test code = test methodology:) IGLPAP HPV aptima (test code = HPV aptima) [facility] [id number] 00:00:00Clinical InformationPathologistA SourceA Gross DescriptionA DiagnosisA CommentPrivia Medicalurinalysis, [id number] 00:00:00* Test Item Value Reference Range Interpretation [...] code = yeast) Present none seen [facility] in Urine by [id number] 00:00:00* Test Item Value Reference Range Interpretation Comme nts urine culture, routine (test code = urine culture, routine) Final report result 1 (test code = result 1) MUG [facility] MedicalUA/M w/rflx culture, [id number] 00:00:00* Test Item Value Reference Range Interpretation [...] reflex (test code = urinalysis reflex) FLEX [facility] Medicalpregnancy test, [id number] 15:14:21* Test Item Value Reference Range Interpretation Comme nts HCG (test code = HCG) negative [facility] MedicalThyrotropin [Units/volume] in Serum or [id number] 00:00:00* Test Item Value Reference Range Interpretation Comme nts TSH (test code = TSH) 1.100 uIU/mL 0.500-4.530 [facility] MedicalEstradiol (E2) [Mass/volume] in Serum or [id number] 00:00:00 * Test Item Value Reference Range Interpretation Comme nts estradiol (test code = estradiol) 81.3 pg/mL 6.1-91.9 [facility] MedicalFollitropin [Units/volume] in Serum or [id number] 00:00:00* Test Item Value Reference Range Interpretation Comme nts FSH (test code = FSH) 3.9 mIU/mL [facility] MedicalChlamydia trachomatis and Neisseria gonorrhoeae rRNA panel - Specimen by KELI with probe [id number] 00:00:00* Test Item Value Reference Range Interpretation Comme nts aptima combo 2 swab (CT) (te st code = aptima combo 2 swab (CT)) CT NEG negative aptima combo 2 swab (GC) (te st code = aptima combo 2 swab (GC)) GC NEG negative [facility] Medicalurinalysis, [id number] 08:44:12* Test Item Value Reference Range Interpretation Comme nts Leukocytes (test code = Leukocytes) 1+ Nitrite (test code = Nitrite) negative Urobilinogen (test code = Urobilinogen) Normal Protein (test code = Protein) Negative pH (test code = pH) 6.0 Blood (test code = Blood) Non-Hemolyzed: Moderate Specific [place] (test code = Specific [place]) 1.020 Ketone (test code = Ketone) Negative Bilirubin (test code = Bilirubin) Negative Glucose (test code = Glucose) Negative Appearance (test code = Appearance) Slightly Cloudy Color (test code = Color) Yellow [facility] MedicalANA (ANTI-NUCLEAR AB) WITH REFLEX [id number] 00:00:00* Test Item Value Reference Range Interpretation Comme nts ANTI-NUCLEAR ANTIBODIES (aram t code = 3506) NEGATIVE YAZMIN PATTERN (REPORTED TITER) (test code = 33791) SEE BELOW HOMOGENEOUS (test code = 06426) NEGATIVE TITER SPECKLED (test code = 778274) NEGATIVE TITER DENSE FINE SPECKLED (test co de = 97501) NEGATIVE TITER CENTROMERE (test code = 208208) NEGATIVE TITER COARSE SPECKLED (test code = 261375) NEGATIVE TITER DISCRETE NUCLEAR DOTS (test code = 302518) NEGATIVE TITER NUCLEOLAR (test code = 205266) NEGATIVE TITER NUCLEAR MEMBRANE (test code = 272094) NEGATIVE TITER CYTO. RETICULAR (SANDY) (test code = 339242) NEGATIVE COMMENTS (test code = 873624) NONE METHOD (test code = 31782) (NOTE) Robert Bailon (ANTI-NUCLEAR AB) WITH REFLEX [id number] 00:00:00* Test Item Value Reference Range Interpretation Comme nts ANTI-NUCLEAR ANTIBODIES (aram t code = 3506) NEGATIVE YAZMIN PATTERN (REPORTED TITER) (test code = 78124) SEE BELOW HOMOGENEOUS (test code = 86239) NEGATIVE TITER SPECKLED (test code = 773359) NEGATIVE TITER DENSE FINE SPECKLED (test co de = 01912) NEGATIVE TITER CENTROMERE (test code = 341043) NEGATIVE TITER COARSE SPECKLED (test code = 008590) NEGATIVE TITER DISCRETE NUCLEAR DOTS (test code = 696713) NEGATIVE TITER NUCLEOLAR (test code = 193227) NEGATIVE TITER NUCLEAR MEMBRANE (test code = 999960) NEGATIVE TITER CYTO. RETICULAR (SANDY) (test code = 667485) NEGATIVE COMMENTS (test code = 591372) NONE METHOD (test code = 69116) (NOTE) Robert HerrPLEMENT, TOTAL [id number] 00:00:00* Test Item Value Reference Range Interpretation Comme nts COMPLEMENT, TOTAL HEM (test code = 3508) 61 U/mL Robert F AustindsDNA [id number] 00:00:00* Test Item Value Reference Range Interpretation Comme nts dsDNA ANTIBODY (test code = 4287) <1.0 IU/ML Robert F AustinCOMPLEMENT, TOTAL [id number] 00:00:00* Test Item Value Reference Range Interpretation Comme nts COMPLEMENT, TOTAL HEM (test code = 3508) 61 U/mL Robert F AustindsDNA [id number] 00:00:00* Test Item Value Reference Range Interpretation Comme nts dsDNA ANTIBODY (test code = 4287) <1.0 IU/ML Robert F AustinC-REACTIVE [id number] 00:00:00* Test Item Value Reference Range Interpretation Comme nts C-REACTIVE PROTEIN (test cod e = 3513) 0.6 MG/DL Robert F AustinSEDIMENTATION [id number] 00:00:00* Test Item Value Reference Range Interpretation Comme nts SEDIMENTATION RATE (test cod e = 1017) 5 MM/HOUR Robert F AustinRHEUMATOID FACTOR, [id number] 00:00:00* Test Item Value Reference Range Interpretation Comme nts RHEUMATOID FACTOR, QUANT (te st code = 3502) <10 IU/ML Robert F AustinRETICULOCYTE [id number] 00:00:00* Test Item Value Reference Range Interpretation Comme nts RETICULOCYTE HEMOGLOBIN (aram t code = 17987) 26.3 PG Robert F AustinC-REACTIVE [id number] 00:00:00* Test Item Value Reference Range Interpretation Comme nts C-REACTIVE PROTEIN (test cod e = 3513) 0.6 MG/DL Robert F AustinSEDIMENTATION [id number] 00:00:00* Test Item Value Reference Range Interpretation Comme nts SEDIMENTATION RATE (test cod e = 1017) 5 MM/HOUR Robert F AustinRHEUMATOID FACTOR, [id number] 00:00:00* Test Item Value Reference Range Interpretation Comme nts RHEUMATOID FACTOR, QUANT (te st code = 3502) <10 IU/ML Robert F AustinRETICULOCYTE [id number] 00:00:00* Test Item Value Reference Range Interpretation Comme nts RETICULOCYTE HEMOGLOBIN (aram t code = 61084) 26.3 PG Robert CaliCBC W/AUTO [id number] 00:00:00* Test Item Value Reference Range Interpretation [...] ABS NUCLEATED RBCS (test cod e = 01139) 0.00 K/UL Robert CaliCBC W/AUTO [id number] 00:00:00* Test Item Value Reference Range Interpretation [...] ABS NUCLEATED RBCS (test cod e = 42377) 0.00 K/UL [facility]/AUTO [id number] 00:00:00* Test Item Value Reference Range Interpretation [...] ABS NUCLEATED RBCS (test cod e = 16978) 0.00 K/UL Robert CaliCBC W/AUTO [id number] 00:00:00* Test Item Value Reference Range Interpretation [...] ABS NUCLEATED RBCS (test cod e = 02188) 0.00 K/UL Robert [id number] 05:10:38* Test Item Value Reference Range Interpretation Comme nts FERRITIN (test code = 2075) 69 NG/ML 13-200 CBC W/AUTO DIFF WITH [id number] 02:22:56* Test Item Value Reference Range Interpretation [...] 0.00-0.10 ABS NUCLEATED RBCS (test code = 99767) 0.00 K/UL 0.00-0.11 UNLESS OTHER SPARROW INDICATED, ALL TESTING PERFORMED AT [facility] [address] [place] [address] AGRICULTURAL AGENT: CHARLA HERNANDEZ M.D. CLIA NUMBER [id number] [facility] [place]. [id number] 00:00:00* Test Item Value Reference Range Interpretation Comme nts FERRITIN (test code = 5) 69 NG/ML Robert CaliCBC W/AUTO [id number] 00:00:00* Test Item Value Reference Range Interpretation [...] ABS NUCLEATED RBCS (test cod e = 84572) 0.00 K/UL Robert [id number] 00:00:00* Test Item Value Reference Range Interpretation Comme nts FERRITIN (test code = 5) 69 NG/ML Robert Ambrose AustinCBC W/AUTO [id number] 00:00:00* Test Item Value Reference Range Interpretation [...] ABS NUCLEATED RBCS (test cod e = 69252) 0.00 K/UL Robert Ambrose [id number] 00:00:00* Test Item Value Reference Range Interpretation Comme nts FERRITIN (test code = 5) 69 NG/ML Robert Ambrose VirajCBC W/AUTO [id number] 00:00:00* Test Item Value Reference Range Interpretation [...] ABS NUCLEATED RBCS (test cod e = 74896) 0.00 K/UL Robert Ambrose [id number] 00:00:00* Test Item Value Reference Range Interpretation Comme nts FERRITIN (test code = 2075) 69 NG/ML Robert CaliCBC W/AUTO [id number] 00:00:00* Test Item Value Reference Range Interpretation [...] ABS NUCLEATED RBCS (test cod e = 04793) 0.00 K/UL Robert Bailon (ANTI-NUCLEAR AB) WITH REFLEX [id number] 06:46:04* Test Item Value Reference Range Interpretation Comme nts ANTI-NUCLEAR ANTIBODIES (test code = 3506) NEGATIVE NEGATIVE Methodology is I ndirect Immunofluorescent Assay (IFA) with a titering system using Dkm2220 cells (Hep2 cells transfected with SS-A/Ro). YAZMIN PATTERN (REPORTED TITER) (test code = 07484) SEE BELOW HOMOGENEOUS (test code = 29178) NEGATIVE TITER NEGATIVE SPECKLED (test code = 678331) NEGATIVE TITER NEGATIVE DENSE FINE SPECKLED (test code = 32726) NEGATIVE TITER NEGATIVE CENTROMERE (test code = 991351) NEGATIVE TITER NEGATIVE COARSE SPECKLED (test code = 028339) NEGATIVE TITER NEGATIVE DISCRETE NUCLEAR DOTS (test code = 999762) NEGATIVE TITER NEGATIVE NUCLEOLAR (test code = 618561) NEGATIVE TITER NEGATIVE NUCLEAR MEMBRANE (test code = 230806) NEGATIVE TITER NEGATIVE CYTO. RETICULAR (SANDY) (test code = 679728) NEGATIVE NEGATIVE COMMENTS (test code = 156274) NONE METHOD (test code = 88760) (NOTE) TESTING PERFORME D BY [employer] IFA PLATFORM.THE METHOD INCLUDES A SCREEN THRESHOLD OF 1:80, DIGITIZED AND COMPUTER ALGORITHM-ASSISTED INTERPRETATION OF TITERS AND DIGITAL PATTERNS, AND HEp-2 CELL LINE SUBSTRATE. ADDITIONAL UNUSUAL PATTERNS WILL BE GIVEN COMMENTS.FOR MORE INFORMATION, SEE [email or web address] OTHERWISE INDICATED, ALL TESTING PERFORMED AT [facility] [address] [place] [id number] AGRICULTURAL AGENT: CHARLA HERNANDEZ M.D. CLIA NUMBER [id number] [place]. [id number] NOTE:2023-12-07 06:05:36* Test Item Value Reference Range Interpretation Comme nts NOTE: (test code = 998) (NOTE) IN ACCORDANCE [facility] FEDERAL GUIDELINES REQUIRING ALL VERBAL REQUESTS FOR LABORATORY TESTS TO BE ACCOMPANIED BY WRITTEN AUTHORIZATION WITHIN 30 DAYS OF THIS REQUEST, PLEASE SIGN BELOW AND RETURN A COPY OF THIS REPORT BY FAX TO THE LABORATORY SCANNING DEPARTMENT AT [phone]. PHYSICIAN'S SIGNATURE DATE NOTE: [ADDED]2023-12-07 00:00:00* Test Item Value Reference Range Interpretation Comme nts NOTE: (test code = 998) (NOTE) Robert CaliYAZMIN (ANTI-NUCLEAR AB) WITH REFLEX TITER [ADDED]2023-12-07 00:00:00* Test Item Value Reference Range Interpretation Comme nts ANTI-NUCLEAR ANTIBODIES (aram t code = 3506) NEGATIVE YAZMIN PATTERN (REPORTED TITER) (test code = 26171) SEE BELOW HOMOGENEOUS (test code = 19755) NEGATIVE TITER SPECKLED (test code = 588977) NEGATIVE TITER DENSE FINE SPECKLED (test co de = 79732) NEGATIVE TITER CENTROMERE (test code = 935606) NEGATIVE TITER COARSE SPECKLED (test code = 671119) NEGATIVE TITER DISCRETE NUCLEAR DOTS (test code = 269607) NEGATIVE TITER NUCLEOLAR (test code = 410711) NEGATIVE TITER NUCLEAR MEMBRANE (test code = 455607) NEGATIVE TITER CYTO. RETICULAR (SANDY) (test code = 828696) NEGATIVE COMMENTS (test code = 712435) NONE METHOD (test code = 45033) (NOTE) Robert Ambrose VirajNOTE: [ADDED]2023-12-07 00:00:00* Test Item Value Reference Range Interpretation Comme nts NOTE: (test code = 998) (NOTE) Robert Ambrose Adamaris (ANTI-NUCLEAR AB) WITH REFLEX TITER [ADDED]2023-12-07 00:00:00* Test Item Value Reference Range Interpretation Comme nts ANTI-NUCLEAR ANTIBODIES (aram t code = 3506) NEGATIVE YAZMIN PATTERN (REPORTED TITER) (test code = 16688) SEE BELOW HOMOGENEOUS (test code = 28277) NEGATIVE TITER SPECKLED (test code = 019139) NEGATIVE TITER DENSE FINE SPECKLED (test co de = 28258) NEGATIVE TITER CENTROMERE (test code = 292738) NEGATIVE TITER COARSE SPECKLED (test code = 614789) NEGATIVE TITER DISCRETE NUCLEAR DOTS (test code = 760428) NEGATIVE TITER NUCLEOLAR (test code = 144312) NEGATIVE TITER NUCLEAR MEMBRANE (test code = 014333) NEGATIVE TITER CYTO. RETICULAR (SANDY) (test code = 316363) NEGATIVE COMMENTS (test code = 654142) NONE METHOD (test code = 53377) (NOTE) Robert CaliNOTE: [ADDED]2023-12-07 00:00:00* Test Item Value Reference Range Interpretation Comme nts NOTE: (test code = 998) (NOTE) Robert Bailon (ANTI-NUCLEAR AB) WITH REFLEX TITER [ADDED]2023-12-07 00:00:00* Test Item Value Reference Range Interpretation Comme nts ANTI-NUCLEAR ANTIBODIES (aram t code = 3506) NEGATIVE YAZMIN PATTERN (REPORTED TITER) (test code = 46110) SEE BELOW HOMOGENEOUS (test code = 50841) NEGATIVE TITER SPECKLED (test code = 643066) NEGATIVE TITER DENSE FINE SPECKLED (test co de = 10491) NEGATIVE TITER CENTROMERE (test code = 522067) NEGATIVE TITER COARSE SPECKLED (test code = 065724) NEGATIVE TITER DISCRETE NUCLEAR DOTS (test code = 104909) NEGATIVE TITER NUCLEOLAR (test code = 796201) NEGATIVE TITER NUCLEAR MEMBRANE (test code = 701316) NEGATIVE TITER CYTO. RETICULAR (SANDY) (test code = 578624) NEGATIVE COMMENTS (test code = 428973) NONE METHOD (test code = 07310) (NOTE) Robert CaliNOTE: [ADDED]2023-12-07 00:00:00* Test Item Value Reference Range Interpretation Comme nts NOTE: (test code = 998) (NOTE) Robert Bailon (ANTI-NUCLEAR AB) WITH REFLEX TITER [ADDED]2023-12-07 00:00:00* Test Item Value Reference Range Interpretation Comme nts ANTI-NUCLEAR ANTIBODIES (aram t code = 3506) NEGATIVE YAZMIN PATTERN (REPORTED TITER) (test code = 79457) SEE BELOW HOMOGENEOUS (test code = 43388) NEGATIVE TITER SPECKLED (test code = 562077) NEGATIVE TITER DENSE FINE SPECKLED (test co de = 58379) NEGATIVE TITER CENTROMERE (test code = 197244) NEGATIVE TITER COARSE SPECKLED (test code = 281392) NEGATIVE TITER DISCRETE NUCLEAR DOTS (test code = 292777) NEGATIVE TITER NUCLEOLAR (test code = 627375) NEGATIVE TITER NUCLEAR MEMBRANE (test code = 863586) NEGATIVE TITER CYTO. RETICULAR (SANDY) (test code = 063074) NEGATIVE COMMENTS (test code = 329016) NONE METHOD (test code = 81624) (NOTE) Robert CaliNOTE: [ADDED]2023-12-07 00:00:00* Test Item Value Reference Range Interpretation Comme nts NOTE: (test code = 998) (NOTE) Robert CaliYAZMIN (ANTI-NUCLEAR AB) WITH REFLEX TITER [ADDED]2023-12-07 00:00:00* Test Item Value Reference Range Interpretation Comme nts ANTI-NUCLEAR ANTIBODIES (aram t code = 3506) NEGATIVE YAZMIN PATTERN (REPORTED TITER) (test code = 50721) SEE BELOW HOMOGENEOUS (test code = 42942) NEGATIVE TITER SPECKLED (test code = 000691) NEGATIVE TITER DENSE FINE SPECKLED (test co de = 43248) NEGATIVE TITER CENTROMERE (test code = 575933) NEGATIVE TITER COARSE SPECKLED (test code = 881334) NEGATIVE TITER DISCRETE NUCLEAR DOTS (test code = 067449) NEGATIVE TITER NUCLEOLAR (test code = 205662) NEGATIVE TITER NUCLEAR MEMBRANE (test code = 948888) NEGATIVE TITER CYTO. RETICULAR (SANDY) (test code = 726309) NEGATIVE COMMENTS (test code = 586804) NONE METHOD (test code = 08867) (NOTE) Robert CaliPROTEIN ELECTROPHORESIS, [id number] 14:58:50* Test Item Value Reference Range Interpretation [...] HUSSEIN M.D. VITAMIN B 12 AND FOLIC [id number] 05:31:25* Test Item Value Reference Range Interpretation Comme [facility] VITAMIN B-12 (test code = 2840) 380 [...] . . . UG/L >=6.0 COMPREHENSIVE METABOLIC [id number] 04:03:47* Test Item Value Reference Range Interpretation Comme nts GLUCOSE (test code = 2217) 95 MG/DL 70-99 BUN (test code = 2208) 13 MG/DL 6-20 CREATININE (test code = 2214) 0.65 MG/DL 0.60-1.30 eGFR (2020 CKD-EPI) (test code = 92646) 110 ML/MIN/1.73 >60 CALC BUN/CREAT (test code = 2235) 20 RATIO 6-28 SODIUM (test code = 223) 139 MEQ/L 133-146 POTASSIUM (test code = 222) 4.6 MEQ/L 3.5-5.4 CHLORIDE (test code = [...] 16 U/L 9-40 ALT (test code = 221) 16 U/L 5-40 UNLESS OTHERWISE INDICATED, ALL TESTING PERFORMED AT [facility] [address] [place] [address] AGRICULTURAL AGENT: CHARLA HERNANDEZ M.D. CLIA NUMBER [id number] [facility] [place]. [id number] CBC W/AUTO DIFF WITH [id number] 03:00:25* Test Item Value Reference Range Interpretation [...] 0.00-0.10 ABS NUCLEATED RBCS (test code = 33408) 0.00 K/UL 0.00-0.11 VITAMIN B 12 AND FOLIC [id number] 00:00:00* Test Item Value Reference Range Interpretation Comme nts VITAMIN B-12 (test code = 2840) 380 PG/ML FOLIC ACID (test code = 2695) 7.0 UG/L Robert Ambrose AustinPROTEIN ELECTROPHORESIS, [id number] 00:00:00* Test Item Value Reference Range Interpretation [...] code = 2568) (NOTE) Robert CaliCBC W/AUTO [id number] 00:00:00* Test Item Value Reference Range Interpretation [...] ABS NUCLEATED RBCS (test cod e = 94419) 0.00 K/UL Robert CaliCOMPREHENSIVE METABOLIC [id number] 00:00:00* Test Item Value Reference Range Interpretation Comme nts GLUCOSE (test code = 2217) 95 MG/DL BUN (test code = 2208) 13 MG/DL CREATININE (test code = 2214) 0.65 MG/DL eGFR (2020 CKD-EPI) (test code = 00154) 110 ML/MIN/1.73 CALC BUN/CREAT (test code = [...] U/L Robert CaliVITAMIN B 12 AND FOLIC [id number] 00:00:00* Test Item Value Reference Range Interpretation Comme nts VITAMIN B-12 (test code = 2840) 380 PG/ML FOLIC ACID (test code = 2695) 7.0 UG/L Robert CaliPROTEIN ELECTROPHORESIS, [id number] 00:00:00* Test Item Value Reference Range Interpretation [...] code = 2568) (NOTE) Robert CaliCBC W/AUTO [id number] 00:00:00* Test Item Value Reference Range Interpretation [...] ABS NUCLEATED RBCS (test cod e = 11523) 0.00 K/UL Robert F VirajCOMPREHENSIVE METABOLIC [id number] 00:00:00* Test Item Value Reference Range Interpretation Comme nts GLUCOSE (test code = 2217) 95 MG/DL BUN (test code = 2208) 13 MG/DL CREATININE (test code = 2214) 0.65 MG/DL eGFR (2020 CKD-EPI) (test code = 62470) 110 ML/MIN/1.73 CALC BUN/CREAT (test code = [...] ALT (test code = 2219) 16 U/L Roberteliz CaliVITAMIN B 12 AND FOLIC [id number] 00:00:00* Test Item Value Reference Range Interpretation Comme nts VITAMIN B-12 (test code = 2840) 380 PG/ML FOLIC ACID (test code = 2695) 7.0 UG/L Robert Arnol VirajPROTEIN ELECTROPHORESIS, [id number] 00:00:00* Test Item Value Reference Range Interpretation [...] = 2568) (NOTE) Robert Arnol VirajCBC W/AUTO [id number] 00:00:00* Test Item Value Reference Range Interpretation [...] ABS NUCLEATED RBCS (test cod e = 56457) 0.00 K/UL Robert Arnol VirajCOMPREHENSIVE METABOLIC [id number] 00:00:00* Test Item Value Reference Range Interpretation Comme nts GLUCOSE (test code = 2217) 95 MG/DL BUN (test code = 2208) 13 MG/DL CREATININE (test code = 2214) 0.65 MG/DL eGFR (2020 CKD-EPI) (test code = 16109) 110 ML/MIN/1.73 CALC BUN/CREAT (test code = [...] U/L Robert CaliVITAMIN B 12 AND FOLIC [id number] 00:00:00* Test Item Value Reference Range Interpretation Comme nts VITAMIN B-12 (test code = 2840) 380 PG/ML FOLIC ACID (test code = 2695) 7.0 UG/L Robert CaliPROTEIN ELECTROPHORESIS, [id number] 00:00:00* Test Item Value Reference Range Interpretation [...] code = 2568) (NOTE) Robert CaliCBC W/AUTO [id number] 00:00:00* Test Item Value Reference Range Interpretation [...] ABS NUCLEATED RBCS (test cod e = 31870) 0.00 K/UL Robert CaliCOMPREHENSIVE METABOLIC [id number] 00:00:00* Test Item Value Reference Range Interpretation Comme nts GLUCOSE (test code = 2217) 95 MG/DL BUN (test code = 2208) 13 MG/DL CREATININE (test code = 2214) 0.65 MG/DL eGFR (2020 CKD-EPI) (test code = 12990) 110 ML/MIN/1.73 CALC BUN/CREAT (test code = [...] U/L Robert CaliVITAMIN B 12 AND FOLIC [id number] 00:00:00* Test Item Value Reference Range Interpretation Comme nts VITAMIN B-12 (test code = 2840) 380 PG/ML FOLIC ACID (test code = 2695) 7.0 UG/L Robert CaliPROTEIN ELECTROPHORESIS, [id number] 00:00:00* Test Item Value Reference Range Interpretation [...] code = 2568) (NOTE) Robert CaliCBC W/AUTO [id number] 00:00:00* Test Item Value Reference Range Interpretation [...] ABS NUCLEATED RBCS (test cod e = 58259) 0.00 K/UL Robert CaliCOMPREHENSIVE METABOLIC [id number] 00:00:00* Test Item Value Reference Range Interpretation Comme nts GLUCOSE (test code = 2217) 95 MG/DL BUN (test code = 2208) 13 MG/DL CREATININE (test code = 2214) 0.65 MG/DL eGFR (2020 CKD-EPI) (test code = 27576) 110 ML/MIN/1.73 CALC BUN/CREAT (test code = [...] code = 2219) 16 U/L Robert CaliHAPTOGLOBIN, [id number] 13:13:35* Test Item Value Reference Range Interpretation Comme nts HAPTOGLOBIN, QUANT (test cod e = 06962) 227 MG/DL 32-197 H [id number] 05:29:31* Test Item Value Reference Range Interpretation Comme nts TRANSFERRIN (test code = 4936) 380 MG/DL 200-360 H [id number] 05:29:31* Test Item Value Reference Range Interpretation Comme nts LDH (test code = 2224) 186 U/L 135-214 [id number] 04:14:38* Test Item Value Reference Range Interpretation Comme nts FERRITIN (test code = 2075) 6 NG/ML 13-200 L VITAMIN D, 25 [id number] 04:14:10* Test Item Value Reference Range Interpretation [...] IRON BINDING CAPACITY AND IRON AND % [id number] 04:13:51* Test Item Value Reference Range Interpretation Comme nts IRON, SERUM (test code = 2222) 25 UG/DL 37-145 L UNSATURATED IBC (test code = 36259) 425 UG/DL 112-347 H CALC TOTAL IBC (test code = 2077) 450 UG/DL 250-450 CALC % IRON SAT (test code = 2079) 6 % 20-50 L URIC [id number] 04:13:51* Test Item Value Reference Range Interpretation Comme nts URIC ACID (test code = 2233) 5.8 MG/DL 2.7-6.1 UNLESS OTHERWISE INDICATED, ALL TESTING PERFORMED AT [facility] [address] [place] [address] AGRICULTURAL AGENT: CHARLA HERNANDEZ M.D. CLIA NUMBER [id number] [facility] [place] [id number] LIPID [id number] 04:13:51* Test Item Value Reference Range Interpretation [...] SPECIMENS. FOR MOREINFORMATION, SEE CLIENT ANNOUNCEMENT AT [email or web address] RISK RATIO LDL/HDL (test code = 2238) 2.58 RATIO <3.22 COMPREHENSIVE METABOLIC [id number] 04:13:51* Test Item Value Reference Range Interpretation Comme nts GLUCOSE (test code = 7) 97 MG/DL 70-99 BUN (test code = 2207) 9 MG/DL 6-20 CREATININE (test code = 221) 0.86 MG/DL 0.60-1.30 eGFR (2020 CKD-EPI) (test co de = ) 84 ML/MIN/1.73 >60 CALC BUN/CREAT (test code [...] code = 2219) 22 U/L 5-40 HEMOGLOBIN [id number] 03:10:06* Test Item Value Reference Range Interpretation Comme nts HEMOGLOBIN A1c (test code = 48034) 5.6 % 4.2-5.6 CBC W/AUTO DIFF RFLX SMEAR [id number] 02:37:07* Test Item Value Reference Range Interpretation [...] MANUAL DIFFERENTIAL WILL BE PERFORMED IF INDICATED.SEE [email or web address]- [email or web address] CONTACT YOUR LOCAL [facility] CUSTOMER SERVICEDEPARTMENT FOR FURTHER INFORMATION. LYMPHOCYTES [...] 0.00-0.10 ABS NUCLEATED RBCS (test code = 56714) 0.00 K/UL 0.00-0.11 RETICULOCYTE WITH [id number] 02:37:07* Test Item Value Reference Range Interpretation Comme nts RETICULOCYTE COUNT (test cod e = 1018) 2.55 % 0.80-2.40 H ABSOLUTE RETICULOCYTE (test code = 42428) 115.0 K/UL 32.0-105.0 H HEMOGLOBIN [id number] 00:00:00* Test Item Value Reference Range Interpretation Comme evelia HEMOGLOBIN A1c (test code = 20694) 5.6 % Robert Ambrose AustinLIPID [id number] 00:00:00* Test Item Value Reference Range Interpretation Comme nts CHOLESTEROL (test code = 2210) 212 MG/DL TRIGLYCERIDES (test code = 2232) 116 MG/DL HDL CHOLESTEROL (test code = 2220) 53 MG/DL CALC LDL CHOL (test code = 2237) 137 MG/DL RISK RATIO LDL/HDL (test cod e = 2238) 2.58 RATIO Robert CaliCOMPREHENSIVE METABOLIC [id number] 00:00:00* Test Item Value Reference Range Interpretation Comme nts GLUCOSE (test code = 2217) 97 MG/DL BUN (test code = 2208) 9 MG/DL CREATININE (test code = 2214) 0.86 MG/DL eGFR (2020 CKD-EPI) (test co de = 98503) 84 ML/MIN/1.73 CALC BUN/CREAT (test code = [...] 2219) 22 U/L Robert CaliVITAMIN D, 25 [id number] 00:00:00* Test Item Value Reference Range Interpretation Comme nts VITAMIN D, 25 OH (test code = 4958) 18 NG/ML Robert CaliCBC W/AUTO DIFF RFLX SMEAR [id number] 00:00:00* Test Item Value Reference Range Interpretation [...] ABS NUCLEATED RBCS (test cod e = 16819) 0.00 K/UL Robert CaliRETICULOCYTE WITH [id number] 00:00:00* Test Item Value Reference Range Interpretation Comme nts RETICULOCYTE COUNT (test cod e = 1018) 2.55 % ABSOLUTE RETICULOCYTE (test code = 01039) 115.0 K/UL Robert CaliHAPTOGLOBIN, [id number] 00:00:00* Test Item Value Reference Range Interpretation Comme evelia HAPTOGLOBIN, QUANT (test cod e = 07040) 227 MG/DL Robert [id number] 00:00:00* Test Item Value Reference Range Interpretation Comme nts LDH (test code = 2224) 186 U/L Robert CaliIRON BINDING CAPACITY AND IRON AND % [id number] 00:00:00* Test Item Value Reference Range Interpretation Comme nts IRON, SERUM (test code = 2222) 25 UG/DL UNSATURATED IBC (test code = 71568) 425 UG/DL CALC TOTAL IBC (test code = 7) 450 UG/DL CALC % IRON SAT (test code = 2079) 6 % Robert [id number] 00:00:00* Test Item Value Reference Range Interpretation Comme nts FERRITIN (test code = 2075) 6 NG/ML Robert [id number] 00:00:00* Test Item Value Reference Range Interpretation Comme nts TRANSFERRIN (test code = 4936) 380 MG/DL Robert CaliURIC [id number] 00:00:00* Test Item Value Reference Range Interpretation Comme evelia URIC ACID (test code = 2233) 5.8 MG/DL Robert CaliHEMOGLOBIN [id number] 00:00:00* Test Item Value Reference Range Interpretation Comme evelia HEMOGLOBIN A1c (test code = 41076) 5.6 % Robert CaliLIPID [id number] 00:00:00* Test Item Value Reference Range Interpretation Comme nts CHOLESTEROL (test code = 2210) 212 MG/DL TRIGLYCERIDES (test code = 2232) 116 MG/DL HDL CHOLESTEROL (test code = 2220) 53 MG/DL CALC LDL CHOL (test code = 2237) 137 MG/DL RISK RATIO LDL/HDL (test cod e = 2238) 2.58 RATIO Robert CaliCOMPREHENSIVE METABOLIC [id number] 00:00:00* Test Item Value Reference Range Interpretation Comme nts GLUCOSE (test code = 2217) 97 MG/DL BUN (test code = 2208) 9 MG/DL CREATININE (test code = 2214) 0.86 MG/DL eGFR (2020 CKD-EPI) (test co de = 80384) 84 ML/MIN/1.73 CALC BUN/CREAT (test code = [...] 22 U/L Robert Arnol VirajVITAMIN D, 25 [id number] 00:00:00* Test Item Value Reference Range Interpretation Comme nts VITAMIN D, 25 OH (test code = 4958) 18 NG/ML Robert Ambrose VirajCBC W/AUTO DIFF RFLX SMEAR [id number] 00:00:00* Test Item Value Reference Range Interpretation [...] ABS NUCLEATED RBCS (test cod e = 01244) 0.00 K/UL Robert CaliRETICULOCYTE WITH [id number] 00:00:00* Test Item Value Reference Range Interpretation Comme nts RETICULOCYTE COUNT (test cod e = 1018) 2.55 % ABSOLUTE RETICULOCYTE (test code = 61198) 115.0 K/UL Robert CaliHAPTOGLOBIN, [id number] 00:00:00* Test Item Value Reference Range Interpretation Comme nts HAPTOGLOBIN, QUANT (test cod e = 65591) 227 MG/DL Robert [id number] 00:00:00* Test Item Value Reference Range Interpretation Comme nts LDH (test code = 2224) 186 U/L Robert CaliIRON BINDING CAPACITY AND IRON AND % [id number] 00:00:00* Test Item Value Reference Range Interpretation Comme nts IRON, SERUM (test code = 2222) 25 UG/DL UNSATURATED IBC (test code = 60738) 425 UG/DL CALC TOTAL IBC (test code = 2077) 450 UG/DL CALC % IRON SAT (test code = 2079) 6 % Robert [id number] 00:00:00* Test Item Value Reference Range Interpretation Comme nts FERRITIN (test code = 2075) 6 NG/ML Robert Ambrose [id number] 00:00:00* Test Item Value Reference Range Interpretation Comme nts TRANSFERRIN (test code = 4936) 380 MG/DL Robert Ambrose AustinURIC [id number] 00:00:00* Test Item Value Reference Range Interpretation Comme nts URIC ACID (test code = 2233) 5.8 MG/DL Robert CaliHEMOGLOBIN [id number] 00:00:00* Test Item Value Reference Range Interpretation Comme nts HEMOGLOBIN A1c (test code = 02043) 5.6 % Robert CaliLIPID [id number] 00:00:00* Test Item Value Reference Range Interpretation Comme nts CHOLESTEROL (test code = 2210) 212 MG/DL TRIGLYCERIDES (test code = 2232) 116 MG/DL HDL CHOLESTEROL (test code = 2220) 53 MG/DL CALC LDL CHOL (test code = 2237) 137 MG/DL RISK RATIO LDL/HDL (test cod e = 2238) 2.58 RATIO Robert CaliCOMPREHENSIVE METABOLIC [id number] 00:00:00* Test Item Value Reference Range Interpretation Comme nts GLUCOSE (test code = 2217) 97 MG/DL BUN (test code = 2208) 9 MG/DL CREATININE (test code = 2214) 0.86 MG/DL eGFR (2020 CKD-EPI) (test co de = 65940) 84 ML/MIN/1.73 CALC BUN/CREAT (test code = [...] 2219) 22 U/L Robert CaliVITAMIN D, 25 [id number] 00:00:00* Test Item Value Reference Range Interpretation Comme [facility] VITAMIN D, 25 OH (test code = 4958) 18 NG/ML Robert CaliCBC W/AUTO DIFF RFLX SMEAR [id number] 00:00:00* Test Item Value Reference Range Interpretation Comme [facility] WBC (test code = 1001) 6.2 K/UL [...] ABS NUCLEATED RBCS (test cod e = 41964) 0.00 K/UL Robert Ambrose VirajRETICULOCYTE WITH [id number] 00:00:00* Test Item Value Reference Range Interpretation Comme nts RETICULOCYTE COUNT (test cod e = 1018) 2.55 % ABSOLUTE RETICULOCYTE (test code = 71139) 115.0 K/UL Robert Ambrose VirajHAPTOGLOBIN, [id number] 00:00:00* Test Item Value Reference Range Interpretation Comme nts HAPTOGLOBIN, QUANT (test cod e = 53950) 227 MG/DL Robert Ambrose [id number] 00:00:00* Test Item Value Reference Range Interpretation Comme nts LDH (test code = 2224) 186 U/L Robert Ambrose VirajIRON BINDING CAPACITY AND IRON AND % [id number] 00:00:00* Test Item Value Reference Range Interpretation Comme nts IRON, SERUM (test code = 2222) 25 UG/DL UNSATURATED IBC (test code = 12480) 425 UG/DL CALC TOTAL IBC (test code = 2076) 450 UG/DL CALC % IRON SAT (test code = 2078) 6 % Robert [id number] 00:00:00* Test Item Value Reference Range Interpretation Comme nts FERRITIN (test code = 2074) 6 NG/ML Robert [id number] 00:00:00* Test Item Value Reference Range Interpretation Comme nts TRANSFERRIN (test code = 4936) 380 MG/DL Robert Ambrose AustinURIC [id number] 00:00:00* Test Item Value Reference Range Interpretation Comme nts URIC ACID (test code = 2232) 5.8 MG/DL Robert CaliHEMOGLOBIN [id number] 00:00:00* Test Item Value Reference Range Interpretation Comme evelia HEMOGLOBIN A1c (test code = 29829) 5.6 % Robert CaliLIPID [id number] 00:00:00* Test Item Value Reference Range Interpretation Comme nts CHOLESTEROL (test code = 0) 212 MG/DL TRIGLYCERIDES (test code = 2) 116 MG/DL HDL CHOLESTEROL (test code = 0) 53 MG/DL CALC LDL CHOL (test code = 7) 137 MG/DL RISK RATIO LDL/HDL (test cod e = 2238) 2.58 RATIO Robert CaliCOMPREHENSIVE METABOLIC [id number] 00:00:00* Test Item Value Reference Range Interpretation Comme nts GLUCOSE (test code = 7) 97 MG/DL BUN (test code = 8) 9 MG/DL CREATININE (test code = 2214) 0.86 MG/DL eGFR (2020 CKD-EPI) (test co de = 61022) 84 ML/MIN/1.73 CALC BUN/CREAT (test code = [...] 2219) 22 U/L Robert CaliVITAMIN D, 25 [id number] 00:00:00* Test Item Value Reference Range Interpretation Comme nts VITAMIN D, 25 OH (test code = 4958) 18 NG/ML Robert CaliCBC W/AUTO DIFF RFLX SMEAR [id number] 00:00:00* Test Item Value Reference Range Interpretation [...] ABS NUCLEATED RBCS (test cod e = 98702) 0.00 K/UL Robert CaliRETICULOCYTE WITH [id number] 00:00:00* Test Item Value Reference Range Interpretation Comme nts RETICULOCYTE COUNT (test cod e = 1018) 2.55 % ABSOLUTE RETICULOCYTE (test code = 99165) 115.0 K/UL Robert CaliHAPTOGLOBIN, [id number] 00:00:00* Test Item Value Reference Range Interpretation Comme nts HAPTOGLOBIN, QUANT (test cod e = 61996) 227 MG/DL Robert Ambrose [id number] 00:00:00* Test Item Value Reference Range Interpretation Comme nts LDH (test code = 2224) 186 U/L Robert CaliIRON BINDING CAPACITY AND IRON AND % [id number] 00:00:00* Test Item Value Reference Range Interpretation Comme nts IRON, SERUM (test code = 2222) 25 UG/DL UNSATURATED IBC (test code = 60468) 425 UG/DL CALC TOTAL IBC (test code = 2077) 450 UG/DL CALC % IRON SAT (test code = 2079) 6 % Robert [id number] 00:00:00* Test Item Value Reference Range Interpretation Comme nts FERRITIN (test code = 2075) 6 NG/ML Robert [id number] 00:00:00* Test Item Value Reference Range Interpretation Comme nts TRANSFERRIN (test code = 4936) 380 MG/DL Robert CaliURIC [id number] 00:00:00* Test Item Value Reference Range Interpretation Comme nts URIC ACID (test code = 2233) 5.8 MG/DL Robert CaliHEMOGLOBIN [id number] 00:00:00* Test Item Value Reference Range Interpretation Comme nts HEMOGLOBIN A1c (test code = 21116) 5.6 % Robert CaliLIPID [id number] 00:00:00* Test Item Value Reference Range Interpretation Comme nts CHOLESTEROL (test code = 2210) 212 MG/DL TRIGLYCERIDES (test code = 2232) 116 MG/DL HDL CHOLESTEROL (test code = 2220) 53 MG/DL CALC LDL CHOL (test code = 2237) 137 MG/DL RISK RATIO LDL/HDL (test cod e = 2238) 2.58 RATIO Robert CaliCOMPREHENSIVE METABOLIC [id number] 00:00:00* Test Item Value Reference Range Interpretation Comme nts GLUCOSE (test code = 2217) 97 MG/DL BUN (test code = 2208) 9 MG/DL CREATININE (test code = 2214) 0.86 MG/DL eGFR (2020 CKD-EPI) (test co de = 18454) 84 ML/MIN/1.73 CALC BUN/CREAT (test code = [...] 2219) 22 U/L Robert CaliVITAMIN D, 25 [id number] 00:00:00* Test Item Value Reference Range Interpretation Comme [facility] VITAMIN D, 25 OH (test code = 4958) 18 NG/ML Robert CaliCBC W/AUTO DIFF RFLX SMEAR [id number] 00:00:00* Test Item Value Reference Range Interpretation Comme [facility] WBC (test code = 1001) 6.2 K/UL [...] ABS NUCLEATED RBCS (test cod e = 49908) 0.00 K/UL Robert CaliRETICULOCYTE WITH [id number] 00:00:00* Test Item Value Reference Range Interpretation Comme nts RETICULOCYTE COUNT (test cod e = 1018) 2.55 % ABSOLUTE RETICULOCYTE (test code = 55700) 115.0 K/UL Robert CaliHAPTOGLOBIN, [id number] 00:00:00* Test Item Value Reference Range Interpretation Comme nts HAPTOGLOBIN, QUANT (test cod e = 00923) 227 MG/DL Robert [id number] 00:00:00* Test Item Value Reference Range Interpretation Comme nts LDH (test code = 2224) 186 U/L Robert CaliIRON BINDING CAPACITY AND IRON AND % [id number] 00:00:00* Test Item Value Reference Range Interpretation Comme nts IRON, SERUM (test code = 2222) 25 UG/DL UNSATURATED IBC (test code = 66270) 425 UG/DL CALC TOTAL IBC (test code = 7) 450 UG/DL CALC % IRON SAT (test code = 9) 6 % Robert [id number] 00:00:00* Test Item Value Reference Range Interpretation Comme nts FERRITIN (test code = 2075) 6 NG/ML Robert CaliSxbwgqULFKVBMQXOB0624-29-75 00:00:00* Test Item Value Reference Range Interpretation Comme nts TRANSFERRIN (test code = 4936) 380 MG/DL Robert CaliURIC [id number] 00:00:00* Test Item Value Reference Range Interpretation Comme nts URIC ACID (test code = 2233) 5.8 MG/DL Robert CaliCT ACUTE STROKE ANGIOGRAM [id number] 13:46:46CT STROKE ANGIOGRAM HEAD, CT STROKE ANGIOGRAM [...] caliber. The superior cerebellar arteriesare patent. The LEATHER SOFTENER are patent bilaterally. No sizable posteriorcommunicating arteries are seen. The petrous, cavernous and supraclinoid internal carotid segmentsarewidely patent. The GIBSON and MCA are patent bilaterally. An anteriorcommunicating artery is seen. The dural venous sinuses are opacified and unremarkable.[facility] [id number] 13:46:46CT STROKE ANGIOGRAM HEAD, CT STROKE ANGIOGRAM [...] caliber. The superior cerebellar arteriesare patent. The LEATHER SOFTENER are patent bilaterally. No sizable posteriorcommunicating arteries are seen. The petrous, cavernous and supraclinoid internal carotid segmentsarewidely patent. The GIBSON and MCA are patent bilaterally. An anteriorcommunicating artery is seen. The dural venous sinuses are opacified and unremarkable.[facility] [id number] 13:46:46CT STROKE ANGIOGRAM HEAD, CT STROKE ANGIOGRAM [...] caliber. The superior cerebellar arteriesare patent. The LEATHER SOFTENER are patent bilaterally. No sizable posteriorcommunicating arteries are seen. The petrous, cavernous and supraclinoid internal carotid segmentsarewidely patent. The GIBSON and MCA are patent bilaterally. An anteriorcommunicating artery is seen. The dural venous sinuses are opacified and unremarkable.[facility] ACUTE STROKE ANGIOGRAM [id number] 13:46:46CT STROKE ANGIOGRAM HEAD, CT STROKE ANGIOGRAM [...] caliber. The superior cerebellar arteriesare patent. The LEATHER SOFTENER are patent bilaterally. No sizable posteriorcommunicating arteries are seen. The petrous, cavernous and supraclinoid internal carotid segmentsarewidely patent. The GIBSON and MCA are patent bilaterally. An anteriorcommunicating artery is seen. The dural venous sinuses are opacified and unremarkable.[facility] ACUTE STROKE HEAD WO [id number] 13:44:48EXAM: CT STROKE HEAD WO CONTRAST HISTORY: [...] clear. Thecalvarium and central skull base are unremarkable.[facility] ACUTE STROKE HEAD WO [id number] 13:44:48EXAM: CT STROKE HEAD WO CONTRAST HISTORY: [...] clear. Thecalvarium and central skull base are unremarkable.[facility] CenterLithium[facility] 04:29:26* Test Item Value Reference Range Interpretation Comme nts Emison (test code = 3741419307) 0.6 mmol/L 0.6-1.2 ZAINAB (test code = ZAINAB) Toxic Range: ? Greater than 1.2 mmol/L Lab Interpretation (test code = 57788-1) [address]04-26 04:29:26* Test Item Value Reference Range Interpretation Comme nts Emison (test code = 4269931565) 0.6 mmol/L 0.6-1.2 ZAINAB (test code = ZAINAB) Toxic Range: ? Greater than 1.2 mmol/L Lab Interpretation (test code = 20939-0) [address]04-26 04:29:26* Test Item Value Reference Range Interpretation Comme nts Emison (test code = 8942956302) 0.6 mmol/L 0.6-1.2 ZAINAB (test code = ZAINAB) Toxic Range: ? Greater than 1.2 mmol/L Lab Interpretation (test code = 38255-2) [address]04-26 04:29:26* Test Item Value Reference Range Interpretation Comme nts Emison (test code = 2849515623) 0.6 mmol/L 0.6-1.2 ZAINAB (test code = ZAINAB) Toxic Range: ? Greater than 1.2 mmol/L Lab Interpretation (test code = 64629-7) [address]04-26 04:29:26* Test Item Value Reference Range Interpretation Comme nts Emison (test code = 4940143071) 0.6 mmol/L 0.6-1.2 ZAINAB (test code = ZAINAB) Toxic Range: ? Greater than 1.2 mmol/L Lab Interpretation (test code = 04715-5) [address]04-26 04:29:26* Test Item Value Reference Range Interpretation Comme nts Emison (test code = 4287135821) 0.6 mmol/L 0.6-1.2 ZAINAB (test code = ZAINAB) Toxic Range: ? Greater than 1.2 mmol/L Lab Interpretation (test code = 59500-6) [address]04-26 04:29:26* Test Item Value Reference Range Interpretation Comme nts Emison (test code = 9325192188) 0.6 mmol/L 0.6-1.2 ZAINAB (test code = ZAINAB) Toxic Range: ? Greater than 1.2 mmol/L Lab Interpretation (test code = 49263-1) Normal [facility]2024-04-26 04:29:26* Test Item Value Reference Range Interpretation Comme nts Emison (test code = 3903592914) 0.6 mmol/L 0.6-1.2 ZAINAB (test code = ZAINAB) Toxic Range: ? Greater than 1.2 mmol/L Lab Interpretation (test code = 19704-9) Normal [facility]2024-04-26 04:29:26* Test Item Value Reference Range Interpretation Comme nts Emison (test code = 9207709008) 0.6 mmol/L 0.6-1.2 ZAINAB (test code = ZAINAB) Toxic Range: ? Greater than 1.2 mmol/L Lab Interpretation (test code = 33201-1) Normal [facility]2024-04-26 03:33:22 ALCOHOL<10mg/dL06/07/2023 10:33 PM CDTUTMB LABORATORY SERVICESToxic Greater than or equal to 80 mg/dL. NOTE: Whole blood values are approximately 10% to 15% lower than serum and plasma.[facility]2024-04-26 03:33:22ALCOHOL<10mg/dL06/07/2023 10:33 PM CDTUTMB LABORATORY SERVICESToxic Greater than or equal to 80 mg/dL. NOTE: Whole blood values are approximately 10% to 15% lower than serum and plasma.[facility] 2023-06-08 03:33:22ALCOHOL<10mg/dL06/07/2023 10:33 PM CDTUTMB LABORATORY SERVICESToxic Greater than or equal to 80 mg/dL. NOTE: Whole blood values are approximately 10% to 15% lower than serum and plasma.[facility]2024-04-26 03:33:22ALCOHOL<10mg/dL06/07/2023 10:33 PM CDTUTMB LABORATORY SERVICESToxic Greater than or equal to 80 mg/dL. NOTE: Whole blood values are approximately 10% to 15% lower than serum and plasma.[facility]2024-04-26 03:33:22ALCOHOL<10mg/dL06/07/2023 10:33 PM CDTUTMB LABORATORY SERVICESToxic Greater than or equal to 80 mg/dL. NOTE: Whole blood values are approximately 10% to 15% lower than serum and plasma.[facility]2024-04-26 03:33:22ALCOHOL<10mg/dL06/07/2023 10:33 PM CDTUTMB LABORATORY SERVICESToxic Greater than or equal to 80 mg/dL. NOTE: Whole blood values are approximately 10% to 15% lower than serum and plasma. [facility]2024-04-26 03:33:22 ALCOHOL<10mg/dL06/07/2023 10:33 PM CDTUTMB LABORATORY SERVICESToxic Greater than or equal to 80 mg/dL. NOTE: Whole blood values are approximately 10% to 15% lower than serum and plasma.[facility]2024-04-26 03:33:22ALCOHOL<10mg/dL06/07/2023 10:33 PM CDTUTMB LABORATORY SERVICESToxic Greater than or equal to 80 mg/dL. NOTE: Whole blood values are approximately 10% to 15% lower than serum and plasma.[facility] 2023-06-08 03:33:22ALCOHOL<10mg/dL06/07/2023 10:33 PM CDTUTMB LABORATORY SERVICESToxic Greater than or equal to 80 mg/dL. NOTE: Whole blood values are approximately 10% to 15% lower than serum and plasma.[facility] CenterTroponin I - Code [id number] 03:15:34* Test Item Value Reference Range Interpretation Comme nts TROPONIN I (test code = 2866025673) 0.003 ng/mL <=0.034 ZAINAB (test code = [...] of biotin. Lab Interpretation (test code = 66105-5) Normal [facility] I - Code [id number] 03:15:34* Test Item Value Reference Range Interpretation Comme nts TROPONIN I (test code = 0102116150) 0.003 ng/mL <=0.034 ZAINAB (test code = [...] of biotin. Lab Interpretation (test code = 51724-9) Normal [facility] I - Code [id number] 03:15:34* Test Item Value Reference Range Interpretation Comme nts TROPONIN I (test code = 3218470685) 0.003 ng/mL <=0.034 ZAINAB (test code = [...] of biotin. Lab Interpretation (test code = 09537-5) Normal [facility] I - Code [id number] 03:15:34* Test Item Value Reference Range Interpretation Comme nts TROPONIN I (test code = 8927580764) 0.003 ng/mL <=0.034 ZAINAB (test code = [...] of biotin. Lab Interpretation (test code = 78562-2) Normal [facility] I - Code Ljzlsu8238-66-13 03:15:34* Test Item Value Reference Range Interpretation Comme nts TROPONIN I (test code = 1208218244) 0.003 ng/mL <=0.034 ZAINAB (test code = [...] of biotin. Lab Interpretation (test code = 67768-8) Normal [facility] I - Code [id number] 03:15:34* Test Item Value Reference Range Interpretation Comme nts TROPONIN I (test code = 1438463379) 0.003 ng/mL <=0.034 ZAINAB (test code = [...] of biotin. Lab Interpretation (test code = 77795-0) Normal [facility] I - Code Xqqwjm4084-08-17 03:15:34* Test Item Value Reference Range Interpretation Comme nts TROPONIN I (test code = 3839363754) 0.003 ng/mL <=0.034 ZAINAB (test code = [...] of biotin. Lab Interpretation (test code = 86839-2) Normal [facility] I - Code Cynnks8195-77-55 03:15:34* Test Item Value Reference Range Interpretation Comme nts TROPONIN I (test code = 2331051341) 0.003 ng/mL <=0.034 ZAINAB (test code = [...] of biotin. Lab Interpretation (test code = 44694-4) Normal [facility] I - Code Nqsypv3393-35-19 03:15:34* Test Item Value Reference Range Interpretation Comme nts TROPONIN I (test code = 0096267971) 0.003 ng/mL <=0.034 ZAINAB (test code = [...] of biotin. Lab Interpretation (test code = 49586-3) Normal [facility] Metabolic Panel (NA, K, CL, CO2, Glucose, BUN, Creatinine, CA) - Code [id number] 03:03:47* Test Item Value Reference Range Interpretation Comme [facility] NA (test code = 5846591326) 135 mmol/L 135-145 K (test code = 2563865764) 4.3 mmol/L 3.5-5.0 CL (test code = 2498131251) 103 mmol/L 98-108 CO2 TOTAL (test code = 7139400496) 28 mmol/L 23-31 AGAP (test code = 2503801426) 4 2-16 BUN (test code = 6656408261) 11 mg/dL 7-23 GLUCOSE (test code = 6757516441) 120 mg/dL 70-110 H CREATININE (test code = 2160-0) 0.71 mg/dL 0.50-1.04 CALCIUM (test code = 3800102879) 9.3 mg/dL 8.6-10.6 eGFR (test code = 45587-9) 107.0 mL/min/1.73m2 CKD-EPI eGFR (2020). Assuming creatinine has been stable day-to-day for at least three months, the eGFR indicates Category G1 (>= 90 mL/min/1.73 m2) Lab Interpretation (test code = 15162-8) Abnormal [facility] Metabolic Panel (NA, K, CL, CO2, Glucose, BUN, Creatinine, CA) - Code Pbmcoh3233-50-16 03:03:47* Test Item Value Reference Range Interpretation Comme nts NA (test code = 5735179458) 135 mmol/L 135-145 K (test code = 4321784977) 4.3 mmol/L 3.5-5.0 CL (test code = 8134309802) 103 mmol/L 98-108 CO2 TOTAL (test code = 7353674184) 28 mmol/L 23-31 AGAP (test code = 3953324552) 4 2-16 BUN (test code = 9657273495) 11 mg/dL 7-23 GLUCOSE (test code = 4850222864) 120 mg/dL 70-110 H CREATININE (test code = 2160-0) 0.71 mg/dL 0.50-1.04 CALCIUM (test code = 4448739960) 9.3 mg/dL 8.6-10.6 eGFR (test code = 24528-4) 107.0 mL/min/1.73m2 CKD-EPI eGFR (2020). Assuming creatinine has been stable day-to-day for at least three months, the eGFR indicates Category G1 (>= 90 mL/min/1.73 m2) Lab Interpretation (test code = 58787-2) Abnormal [facility] Metabolic Panel (NA, K, CL, CO2, Glucose, BUN, Creatinine, CA) - Code [id number] 03:03:47* Test Item Value Reference Range Interpretation Comme nts NA (test code = 8585908471) 135 mmol/L 135-145 K (test code = 7777424311) 4.3 mmol/L 3.5-5.0 CL (test code = 2963263381) 103 mmol/L 98-108 CO2 TOTAL (test code = 5810888265) 28 mmol/L 23-31 AGAP (test code = 0901612903) 4 2-16 BUN (test code = 1591674855) 11 mg/dL 7-23 GLUCOSE (test code = 7854236247) 120 mg/dL 70-110 H CREATININE (test code = 2160-0) 0.71 mg/dL 0.50-1.04 CALCIUM (test code = 2800340423) 9.3 mg/dL 8.6-10.6 eGFR (test code = 91291-8) 107.0 mL/min/1.73m2 CKD-EPI eGFR (2020). Assuming creatinine has been stable day-to-day for at least three months, the eGFR indicates Category G1 (>= 90 mL/min/1.73 m2) Lab Interpretation (test code = 86143-1) Abnormal [facility] Metabolic Panel (NA, K, CL, CO2, Glucose, BUN, Creatinine, CA) - Code [id number] 03:03:47* Test Item Value Reference Range Interpretation Comme nts NA (test code = 3897673288) 135 mmol/L 135-145 K (test code = 1826396158) 4.3 mmol/L 3.5-5.0 CL (test code = 1312452187) 103 mmol/L 98-108 CO2 TOTAL (test code = 5704362494) 28 mmol/L 23-31 AGAP (test code = 3110044842) 4 2-16 BUN (test code = 0360040437) 11 mg/dL 7-23 GLUCOSE (test code = 2781817047) 120 mg/dL 70-110 H CREATININE (test code = 2160-0) 0.71 mg/dL 0.50-1.04 CALCIUM (test code = 4923769023) 9.3 mg/dL 8.6-10.6 eGFR (test code = 11716-0) 107.0 mL/min/1.73m2 CKD-EPI eGFR (2020). Assuming creatinine has been stable day-to-day for at least three months, the eGFR indicates Category G1 (>= 90 mL/min/1.73 m2) Lab Interpretation (test code = 83988-9) Abnormal [facility] Metabolic Panel (NA, K, CL, CO2, Glucose, BUN, Creatinine, CA) - Code Stbamf9470-75-44 03:03:47* Test Item Value Reference Range Interpretation Comme nts NA (test code = 5022971499) 135 mmol/L 135-145 K (test code = 1267147225) 4.3 mmol/L 3.5-5.0 CL (test code = 2430376881) 103 mmol/L 98-108 CO2 TOTAL (test code = 2512577156) 28 mmol/L 23-31 AGAP (test code = 7227846445) 4 2-16 BUN (test code = 5525955490) 11 mg/dL 7-23 GLUCOSE (test code = 0615478524) 120 mg/dL 70-110 H CREATININE (test code = 2160-0) 0.71 mg/dL 0.50-1.04 CALCIUM (test code = 4348805740) 9.3 mg/dL 8.6-10.6 eGFR (test code = 71935-1) 107.0 mL/min/1.73m2 CKD-EPI eGFR (2020). Assuming creatinine has been stable day-to-day for at least three months, the eGFR indicates Category G1 (>= 90 mL/min/1.73 m2) Lab Interpretation (test code = 35710-5) Abnormal [facility] Metabolic Panel (NA, K, CL, CO2, Glucose, BUN, Creatinine, CA) - Code Eexcmc1555-20-30 03:03:47* Test Item Value Reference Range Interpretation Comme nts NA (test code = 7804462129) 135 mmol/L 135-145 K (test code = 9876611135) 4.3 mmol/L 3.5-5.0 CL (test code = 9474786054) 103 mmol/L 98-108 CO2 TOTAL (test code = 8173514327) 28 mmol/L 23-31 AGAP (test code = 8463915811) 4 2-16 BUN (test code = 7741152261) 11 mg/dL 7-23 GLUCOSE (test code = 7146716328) 120 mg/dL 70-110 H CREATININE (test code = 2160-0) 0.71 mg/dL 0.50-1.04 CALCIUM (test code = 0741715951) 9.3 mg/dL 8.6-10.6 eGFR (test code = 92958-9) 107.0 mL/min/1.73m2 CKD-EPI eGFR (2020). Assuming creatinine has been stable day-to-day for at least three months, the eGFR indicates Category G1 (>= 90 mL/min/1.73 m2) Lab Interpretation (test code = 59707-9) Abnormal [facility] Metabolic Panel (NA, K, CL, CO2, Glucose, BUN, Creatinine, CA) - Code Zdxntw2425-24-60 03:03:47* Test Item Value Reference Range Interpretation Comme nts NA (test code = 5971891798) 135 mmol/L 135-145 K (test code = 3852394447) 4.3 mmol/L 3.5-5.0 CL (test code = 8656262740) 103 mmol/L 98-108 CO2 TOTAL (test code = 7168209631) 28 mmol/L 23-31 AGAP (test code = 7724575865) 4 2-16 BUN (test code = 7806075927) 11 mg/dL 7-23 GLUCOSE (test code = 1346040113) 120 mg/dL 70-110 H CREATININE (test code = 2160-0) 0.71 mg/dL 0.50-1.04 CALCIUM (test code = 8302665985) 9.3 mg/dL 8.6-10.6 eGFR (test code = 95034-0) 107.0 mL/min/1.73m2 CKD-EPI eGFR (2020). Assuming creatinine has been stable day-to-day for at least three months, the eGFR indicates Category G1 (>= 90 mL/min/1.73 m2) Lab Interpretation (test code = 37080-3) Abnormal [facility] Metabolic Panel (NA, K, CL, CO2, Glucose, BUN, Creatinine, CA) - Code Dmnmvw3175-09-70 03:03:47* Test Item Value Reference Range Interpretation Comme nts NA (test code = 6948546265) 135 mmol/L 135-145 K (test code = 0932869526) 4.3 mmol/L 3.5-5.0 CL (test code = 0456514625) 103 mmol/L 98-108 CO2 TOTAL (test code = 8699441030) 28 mmol/L 23-31 AGAP (test code = 9629361944) 4 2-16 BUN (test code = 7057346839) 11 mg/dL 7-23 GLUCOSE (test code = 9624409091) 120 mg/dL 70-110 H CREATININE (test code = 2160-0) 0.71 mg/dL 0.50-1.04 CALCIUM (test code = 4433370858) 9.3 mg/dL 8.6-10.6 eGFR (test code = 10785-5) 107.0 mL/min/1.73m2 CKD-EPI eGFR (2020). Assuming creatinine has been stable day-to-day for at least three months, the eGFR indicates Category G1 (>= 90 mL/min/1.73 m2) Lab Interpretation (test code = 50247-4) Abnormal [facility] Metabolic Panel (NA, K, CL, CO2, Glucose, BUN, Creatinine, CA) - Code Jddmgh6242-36-36 03:03:47* Test Item Value Reference Range Interpretation Comme nts NA (test code = 8358565584) 135 mmol/L 135-145 K (test code = 9215992785) 4.3 mmol/L 3.5-5.0 CL (test code = 0423047709) 103 mmol/L 98-108 CO2 TOTAL (test code = 3804031674) 28 mmol/L 23-31 AGAP (test code = 2965825545) 4 2-16 BUN (test code = 5360283660) 11 mg/dL 7-23 GLUCOSE (test code = 1121707994) 120 mg/dL 70-110 H CREATININE (test code = 2160-0) 0.71 mg/dL 0.50-1.04 CALCIUM (test code = 4331874760) 9.3 mg/dL 8.6-10.6 eGFR (test code = 74328-0) 107.0 mL/min/1.73m2 CKD-EPI eGFR (2020). Assuming creatinine has been stable day-to-day for at least three months, the eGFR indicates Category G1 (>= 90 mL/min/1.73 m2) Lab Interpretation (test code = 44756-3) [facility] - Code Hatitc5705-98-67 03:00:48* Test Item Value Reference Range Interpretation Comme nts PROTIME PATIENT (test code = 5964-2) 10.4 10.1-12.6 INR (test code = 6301-6) 0.9 Normal INR <1.1; Warfarin Therapeutic range 2.0 to 3.0 or 2.5 to 3.5, depending upon the indications. Lab Interpretation (test code = 45709-9) Normal [facility] - Code Ztpuak9423-29-67 03:00:48* Test Item Value Reference Range Interpretation Comme nts PROTIME PATIENT (test code = 5964-2) 10.4 10.1-12.6 INR (test code = 6301-6) 0.9 Normal INR <1.1; Warfarin Therapeutic range 2.0 to 3.0 or 2.5 to 3.5, depending upon the indications. Lab Interpretation (test code = 61673-6) [facility] Sbqkgv6107-77-31 03:00:48* Test Item Value Reference Range Interpretation Comme nts PROTIME PATIENT (test code = 5964-2) 10.4 10.1-12.6 INR (test code = 6301-6) 0.9 Normal INR <1.1; Warfarin Therapeutic range 2.0 to 3.0 or 2.5 to 3.5, depending upon the indications. Lab Interpretation (test code = 59887-0) Normal [facility] - Code Hkxeir1196-06-02 03:00:48* Test Item Value Reference Range Interpretation Comme nts PROTIME PATIENT (test code = 5964-2) 10.4 10.1-12.6 INR (test code = 6301-6) 0.9 Normal INR <1.1; Warfarin Therapeutic range 2.0 to 3.0 or 2.5 to 3.5, depending upon the indications. Lab Interpretation (test code = 98457-8) Normal [facility] - Code Xmkkay3499-70-69 03:00:48* Test Item Value Reference Range Interpretation Comme nts PROTIME PATIENT (test code = 5964-2) 10.4 10.1-12.6 INR (test code = 6301-6) 0.9 Normal INR <1.1; Warfarin Therapeutic range 2.0 to 3.0 or 2.5 to 3.5, depending upon the indications. Lab Interpretation (test code = 45280-0) [facility] - Code Ybczpz3089-25-62 03:00:48* Test Item Value Reference Range Interpretation Comme nts PROTIME PATIENT (test code = 5964-2) 10.4 10.1-12.6 INR (test code = 6301-6) 0.9 Normal INR <1.1; Warfarin Therapeutic range 2.0 to 3.0 or 2.5 to 3.5, depending upon the indications. Lab Interpretation (test code = 85048-0) Normal [facility] - Code Ejyjev3445-03-40 03:00:48* Test Item Value Reference Range Interpretation Comme nts PROTIME PATIENT (test code = 5964-2) 10.4 10.1-12.6 INR (test code = 6301-6) 0.9 Normal INR <1.1; Warfarin Therapeutic range 2.0 to 3.0 or 2.5 to 3.5, depending upon the indications. Lab Interpretation (test code = 36322-2) [facility] - Code Ovncqc5780-69-57 03:00:48* Test Item Value Reference Range Interpretation Comme nts PROTIME PATIENT (test code = 5964-2) 10.4 10.1-12.6 INR (test code = 6301-6) 0.9 Normal INR <1.1; Warfarin Therapeutic range 2.0 to 3.0 or 2.5 to 3.5, depending upon the indications. Lab Interpretation (test code = 50420-9) [facility] - Code Pgdnev5346-20-99 03:00:48* Test Item Value Reference Range Interpretation Comme nts PROTIME PATIENT (test code = 5964-2) 10.4 10.1-12.6 INR (test code = 6301-6) 0.9 Normal INR <1.1; Warfarin Therapeutic range 2.0 to 3.0 or 2.5 to 3.5, depending upon the indications. Lab Interpretation (test code = 88084-3) [facility] - Code Geuovc4224-23-00 03:00:47* Test Item Value Reference Range Interpretation Comme nts APTT Patient (test code = 3173-2) Lab Interpretation (test cod e = 64015-1) [facility] Jymmfh8359-21-23 03:00:47* Test Item Value Reference Range Interpretation Comme nts APTT Patient (test code = 3173-2) 36 Lab Interpretation (test cod e = 56525-2) [facility] Knbfno1188-71-10 03:00:47* Test Item Value Reference Range Interpretation Comme nts APTT Patient (test code = 3173-2) -36 Lab Interpretation (test cod e = 18836-2) [facility] Bscjgm6945-47-80 03:00:47* Test Item Value Reference Range Interpretation Comme nts APTT Patient (test code = 3173-2) -36 Lab Interpretation (test cod e = 06260-7) [facility] Vyhnnz3945-67-95 03:00:47* Test Item Value Reference Range Interpretation Comme nts APTT Patient (test code = 3173-2) -36 Lab Interpretation (test cod e = 00235-7) [facility] Vxjxmz1512-68-65 03:00:47* Test Item Value Reference Range Interpretation Comme nts APTT Patient (test code = 3173-2) -36 Lab Interpretation (test cod e = 46929-6) [facility] Habxcv0654-82-62 03:00:47* Test Item Value Reference Range Interpretation Comme nts APTT Patient (test code = 3173-2) -36 Lab Interpretation (test cod e = 54817-0) [facility] Jzjvqg2657-16-56 03:00:47* Test Item Value Reference Range Interpretation Comme nts APTT Patient (test code = 3173-2) -36 Lab Interpretation (test cod e = 70248-6) [facility] Qmujio5595-44-24 03:00:47* Test Item Value Reference Range Interpretation Comme nts APTT Patient (test code = 3173-2) -36 Lab Interpretation (test cod e = 12196-4) Normal [facility] without Diff - Code Yhgokl3827-42-16 02:52:09* Test Item Value Reference Range Interpretation [...] 367 166-358 H MPV (test code = 13239-1) 11.3 fL 9.5-12.9 RDW-CV (test code = 788-0) 15.4 % 12.0-15.5 RDW-SD (test code = 23794-2) 43.8 fL 39.0-49.9 NRBC x10^3 (test code = 3612614776) See_Comment [Automated messa ge] The system which generated this result transmitted reference range: 10*3/?L. The reference range was not used to interpret this result as normal/abnormal. NRBC/100 WBC (test code = 1575838088) 0.0 0.0-10.0 IPF % (test code = 5245057900) Lab Interpretation (test code = 14513-9) Abnormal [facility] without Diff - Code Nicmio4214-80-72 02:52:09* Test Item Value Reference Range Interpretation [...] 367 166-358 H MPV (test code = 39060-2) 11.3 fL 9.5-12.9 RDW-CV (test code = 788-0) 15.4 % 12.0-15.5 RDW-SD (test code = 45607-9) 43.8 fL 39.0-49.9 NRBC x10^3 (test code = 7824395326) See_Comment [Automated kWhOURSa InvestingNote] The system which generated this result transmitted reference range: 10*3/?L. The reference range was not used to interpret this result as normal/abnormal. NRBC/100 WBC (test code = 9581532954) 0.0 0.0-10.0 IPF % (test code = 0418246659) Lab Interpretation (test code = 87352-8) Abnormal [facility] without Diff - Code Jupocl0563-11-91 02:52:09* Test Item Value Reference Range Interpretation [...] 367 166-358 H MPV (test code = 19410-2) 11.3 fL 9.5-12.9 RDW-CV (test code = 788-0) 15.4 % 12.0-15.5 RDW-SD (test code = 98031-0) 43.8 fL 39.0-49.9 NRBC x10^3 (test code = 7339567213) See_Comment [Automated kWhOURSa ge] The system which generated this result transmitted reference range: 10*3/?L. The reference range was not used to interpret this result as normal/abnormal. NRBC/100 WBC (test code = 4905942941) 0.0 0.0-10.0 IPF % (test code = 3797629538) Lab Interpretation (test code = 95273-1) Abnormal [facility] without Diff - Code Iuzpsc8248-43-71 02:52:09* Test Item Value Reference Range Interpretation [...] 367 166-358 H MPV (test code = 03990-6) 11.3 fL 9.5-12.9 RDW-CV (test code = 788-0) 15.4 % 12.0-15.5 RDW-SD (test code = 07490-4) 43.8 fL 39.0-49.9 NRBC x10^3 (test code = 0092820152) See_Comment [Automated kWhOURSa ge] The system which generated this result transmitted reference range: 10*3/?L. The reference range was not used to interpret this result as normal/abnormal. NRBC/100 WBC (test code = 3613363558) 0.0 0.0-10.0 IPF % (test code = 2129618927) Lab Interpretation (test code = 58420-6) Abnormal [facility] without Diff - Code Jljbnw1117-03-78 02:52:09* Test Item Value Reference Range Interpretation [...] 367 166-358 H MPV (test code = 60679-6) 11.3 fL 9.5-12.9 RDW-CV (test code = 788-0) 15.4 % 12.0-15.5 RDW-SD (test code = 71985-1) 43.8 fL 39.0-49.9 NRBC x10^3 (test code = 8214257095) See_Comment [Automated kWhOURSa ge] The system which generated this result transmitted reference range: 10*3/?L. The reference range was not used to interpret this result as normal/abnormal. NRBC/100 WBC (test code = 7571136525) 0.0 0.0-10.0 IPF % (test code = 8160842969) Lab Interpretation (test code = 59802-3) Abnormal [facility] without Diff - Code Woilti8577-98-13 02:52:09* Test Item Value Reference Range Interpretation [...] 367 166-358 H MPV (test code = 37509-9) 11.3 fL 9.5-12.9 RDW-CV (test code = 788-0) 15.4 % 12.0-15.5 RDW-SD (test code = 47762-3) 43.8 fL 39.0-49.9 NRBC x10^3 (test code = 7926344174) See_Comment [Automated kWhOU[employer]a [employer]] The system which generated this result transmitted reference range: 10*3/?L. The reference range was not used to interpret this result as normal/abnormal. NRBC/100 WBC (test code = 2106896398) 0.0 0.0-10.0 IPF % (test code = 4033559442) Lab Interpretation (test code = 58983-3) Abnormal [facility] without Diff - Code Edydqs2074-00-11 02:52:09* Test Item Value Reference Range Interpretation [...] 367 166-358 H MPV (test code = 67297-4) 11.3 fL 9.5-12.9 RDW-CV (test code = 788-0) 15.4 % 12.0-15.5 RDW-SD (test code = 12499-0) 43.8 fL 39.0-49.9 NRBC x10^3 (test code = 0241112358) See_Comment [Automated kWhOURSa ge] The system which generated this result transmitted reference range: 10*3/?L. The reference range was not used to interpret this result as normal/abnormal. NRBC/100 WBC (test code = 4377653076) 0.0 0.0-10.0 IPF % (test code = 2258628008) Lab Interpretation (test code = 65315-0) Abnormal [facility] without Diff - Code Ykmvww8319-64-65 02:52:09* Test Item Value Reference Range Interpretation [...] 367 166-358 H MPV (test code = 39098-5) 11.3 fL 9.5-12.9 RDW-CV (test code = 788-0) 15.4 % 12.0-15.5 RDW-SD (test code = 25382-4) 43.8 fL 39.0-49.9 NRBC x10^3 (test code = 9546153610) See_Comment [Automated messa ge] The system which generated this result transmitted reference range: 10*3/?L. The reference range was not used to interpret this result as normal/abnormal. NRBC/100 WBC (test code = 0016434210) 0.0 0.0-10.0 IPF % (test code = 7719194990) Lab Interpretation (test code = 81962-6) Abnormal [facility] without Diff - Code Bsqnho4109-28-66 02:52:09* Test Item Value Reference Range Interpretation [...] 367 166-358 H MPV (test code = 20780-4) 11.3 fL 9.5-12.9 RDW-CV (test code = 788-0) 15.4 % 12.0-15.5 RDW-SD (test code = 29843-4) 43.8 fL 39.0-49.9 NRBC x10^3 (test code = 2576805953) See_Comment [Automated kWhOURSa ge] The system which generated this result transmitted reference range: 10*3/?L. The reference range was not used to interpret this result as normal/abnormal. NRBC/100 WBC (test code = 7370148674) 0.0 0.0-10.0 IPF % (test code = 8933020790) Lab Interpretation (test code = 55567-3) Abnormal [facility] Glucose (Age >30 Days) - Code Stroke 2023-06-08 02:39:00* Test Item Value Reference Range Interpretation Comme nts POCT Glu (age>30days) (test code = 3342) 124 mg/dL 70-110 A Lab Interpretation (test cod e = 79482-6) Abnormal [facility] Glucose (Age >30 Days) - Code Stroke 2023-06-08 02:39:00* Test Item Value Reference Range Interpretation Comme nts POCT Glu (age>30days) (test code = 3342) 124 mg/dL 70-110 A Lab Interpretation (test cod e = 63974-1) Abnormal [facility] Glucose (Age >30 Days) - Code Stroke 2023-06-08 02:39:00* Test Item Value Reference Range Interpretation Comme nts POCT Glu (age>30days) (test code = 3342) 124 mg/dL 70-110 A Lab Interpretation (test cod e = 69889-9) [facility] >30 Days[facility] St[facility] 2023-06-08 02:39:00* Test Item Value Reference Range Interpretation Comme nts POCT Glu (age>30days) (test code = 3342) 124 mg/dL 70-110 A Lab Interpretation (test cod e = 56617-9) [facility]Age >30 Days[facility] - Code Stroke 2023-06-08 02:39:00* Test Item Value Reference Range Interpretation Comme nts POCT Glu (age>30days) (test code = 3342) 124 mg/dL 70-110 A Lab Interpretation (test cod e = 02967-1) [facility]Age >30 Days[facility] - Code Stroke 2023-06-08 02:39:00* Test Item Value Reference Range Interpretation Comme nts POCT Glu (age>30days) (test code = 3342) 124 mg/dL 70-110 A Lab Interpretation (test cod e = 31151-2) [facility]Age >30 Days[facility] - Code Stroke 2023-06-08 02:39:00* Test Item Value Reference Range Interpretation Comme nts POCT Glu (age>30days) (test code = 3342) 124 mg/dL 70-110 A Lab Interpretation (test cod e = 23697-9) [facility]Age >30 Days[facility] - Code Stroke 2023-06-08 02:39:00* Test Item Value Reference Range Interpretation Comme nts POCT Glu (age>30days) (test code = 3342) 124 mg/dL 70-110 A Lab Interpretation (test cod e = 59463-5) [facility]Age >30 Days[facility] - Code Stroke 2023-06-08 02:39:00* Test Item Value Reference Range Interpretation Comme nts POCT Glu (age>30days) (test code = 3342) 124 mg/dL 70-110 A Lab Interpretation (test cod e = 47480-2) [facility]* Test Item Value Reference Range Interpretation Comme nts FERRITIN (test code = 7605976151) 22.4 ng/mL 6.0-137.0 ZAINAB (test code = ZAINAB) Biotin has been reported to cause a negative bias, interpret results relative to patient's use of biotin. Lab Interpretation (test code = 25025-9) [facility] Vxmwn6987-33-66 19:59:01* Test Item Value Reference Range Interpretation Comme nts FERRITIN (test code = 8019697372) 22.4 ng/mL 6.0-137.0 ZAINAB (test code = ZAINAB) Biotin has been reported to cause a negative bias, interpret results relative to patient's use of biotin. Lab Interpretation (test code = 73101-4) [facility] Ginuw8939-41-28 19:59:01* Test Item Value Reference Range Interpretation Comme nts FERRITIN (test code = 5926410210) 22.4 ng/mL 6.0-137.0 ZAINAB (test code = ZAINAB) Biotin has been reported to cause a negative bias, interpret results relative to patient's use of biotin. Lab Interpretation (test code = 80022-3) [facility]2024-01-04 19:59:01* Test Item Value Reference Range Interpretation Comme nts FERRITIN (test code = 5360535493) 22.4 ng/mL 6.0-137.0 ZAINAB (test code = ZAINAB) Biotin has been reported to cause a negative bias, interpret results relative to patient's use of biotin. Lab Interpretation (test code = 08117-5) [facility] Ecrem1971-57-05 19:59:01* Test Item Value Reference Range Interpretation Comme nts FERRITIN (test code = 9005385364) 22.4 ng/mL 6.0-137.0 ZAINAB (test code = ZAINAB) Biotin has been reported to cause a negative bias, interpret results relative to patient's use of biotin. Lab Interpretation (test code = 94115-1) [facility] Xquoo7529-83-54 19:59:01* Test Item Value Reference Range Interpretation Comme nts FERRITIN (test code = 6191509820) 22.4 ng/mL 6.0-137.0 ZAINAB (test code = ZAINAB) Biotin has been reported to cause a negative bias, interpret results relative to patient's use of biotin. Lab Interpretation (test code = 70566-1) [facility] Speug8602-41-18 19:30:52* Test Item Value Reference Range Interpretation Comme nts IRON (test code = 1819535699) 54 ug/dL 50-160 TIBC (test code = 0876701968) 434 ug/dL 250-410 H % FE SAT (test code = 4249741223) 12 % 20-50 L Lab Interpretation (test cod e = 48424-4) Abnormal [facility] Mggef8921-96-25 19:30:52* Test Item Value Reference Range Interpretation Comme nts IRON (test code = 5443128073) 54 ug/dL 50-160 TIBC (test code = 7291555536) 434 ug/dL 250-410 H % FE SAT (test code = 6610212155) 12 % 20-50 L Lab Interpretation (test cod e = 90369-9) Abnormal [facility] Ghnnb8711-48-13 19:30:52* Test Item Value Reference Range Interpretation Comme nts IRON (test code = 9974332493) 54 ug/dL 50-160 TIBC (test code = 0082895354) 434 ug/dL 250-410 H % FE SAT (test code = 4608225105) 12 % 20-50 L Lab Interpretation (test cod e = 37376-9) Abnormal [facility] Rlabs2235-00-59 19:30:52* Test Item Value Reference Range Interpretation Comme nts IRON (test code = 9678288547) 54 ug/dL 50-160 TIBC (test code = 1899708906) 434 ug/dL 250-410 H % FE SAT (test code = 7861577243) 12 % 20-50 L Lab Interpretation (test cod e = 66513-5) Abnormal [facility] Tzioq6605-04-50 19:30:52* Test Item Value Reference Range Interpretation Comme nts IRON (test code = 0372493985) 54 ug/dL 50-160 TIBC (test code = 3956165228) 434 ug/dL 250-410 H % FE SAT (test code = 8369465348) 12 % 20-50 L Lab Interpretation (test cod e = 17688-2) Ab[facility] Axcfs3191-49-13 19:30:52* Test Item Value Reference Range Interpretation Comme nts IRON (test code = 0184784639) 54 ug/dL 50-160 TIBC (test code = 5897907491) 434 ug/dL 250-410 H % FE SAT (test code = 8053809963) 12 % 20-50 L Lab Interpretation (test cod e = 36393-3) Abnormal [facility]2023-12-11 20:01:05* Test Item Value Reference Range Interpretation Comme nts Emison (test code = 4020831899) 0.5 mmol/L 0.6-1.2 L ZAINAB (test code = ZAINAB) Toxic Range: ? Greater than 1.2 mmol/L Lab Interpretation (test code = 35400-9) Abnormal [facility]2023-12-11 20:01:05* Test Item Value Reference Range Interpretation Comme nts Emison (test code = 6388910628) 0.5 mmol/L 0.6-1.2 L ZAINAB (test code = ZAINAB) Toxic Range: ? Greater than 1.2 mmol/L Lab Interpretation (test code = 31590-1) Abnormal [facility]2023-12-11 20:01:05* Test Item Value Reference Range Interpretation Comme nts Emison (test code = 4546201766) 0.5 mmol/L 0.6-1.2 L ZAINAB (test code = ZAINAB) Toxic Range: ? Greater than 1.2 mmol/L Lab Interpretation (test code = 88609-1) [facility] GTJE8161-31-61 19:23:05* Test Item Value Reference Range Interpretation Comme nts Case Report (test code = 3836562565) Surgical Pathology ?Case: [id number] ? Authorizing Provider: ?Dominic Keita MD ? [...] HPylori ? Final Diagnosis (test code = 4478853563) w6nebXDnFUQcb7ksJERxmM FuZzEwMzNcZnRuYmpcdWMx UDmnyeNlXGtrqFmuJOX9KM IzVS2cxBdsbCz8fFjdTJZj jfR3oKLfGQyrl4thWCU7w9 hizivcUCQkPXsoMg9fuCFf gSdhLfTjBXMlIXg4gZ62TO GscI3dkFKqBJi9SBTjzUDh wmMyVmSlHQJjbVMuyKW3LX KrUT1bnnvaVPxuHRfyTSVn hrF5PVUfcIPoJ7EmJELzZT 0kxefrREP9INbrNGBlKFL5 IoDaFAQbs0Zzrkn2OzJifK FyZFxwbGFpblxmczIwXHBh rpBJSjFGWH2MQRNNNKDRQ1 rDPOLKSW3OTFVJYikvjVYg MDEtUZSfSPCDDL8FSWEqN0 qKQmThFJ2XNVUpYYDarVBg PYVqhxEKNkXTEQ2WFK6SNF wgQklPUFNZOlxwYXIgICAg ERUhUFbDY6NMXBNcCHSHR2 KTQMcNOSstPp2rRQOUVM4T S8pBF7LOGMKGND9ZERqjWG ZvSURqYQFuXH8AGIqeMZMY VI4BQTBIIUDTUTiQLJXJLB SRFZrDKGBZM4IXFFfETAHb ygerCJXkNz2fQ6QKXZAATU wgQklPUFNZOlxwYXIgICAg CHCuYWCRA1ESNtVYEE1CY2 0ULSXPXDGBSX9YXGBRBZgM RR2KWECNMTCMUAHDS0SxuN FyICAgICAgLSBOTyBFVklE HF4TPNRFAmDHLOxUXAWiXH lTRUFTRVxwYXIgICAgICAt ZF4FTWdxJMQKPE5JYRSNJl dBTklTTVMgSURFTlRJRklF UMXANQNZCP9OWo8ZRSDKSi xwYXJccGFyfXtccnRmMVxz j5DnQ4KdRkBvPEqprhFbYS CtRjwhrmfpVRSvMUH2lfUw LSJdNBydWVDkLNgtJr8lhQ YisSmaXrEeTHCzw5dbknTU RRagDeKtA658ZHSgQAnja9 tau4ZfEPJipKEay9I2YYNN ubkedTu0m0quReFxRiA3oJ XjSVqyJ8uiujUzbQHkL1Th yTAjgFn6wAfxY83ls2X2Wk fnE3meQIAvHXTlM0OlXM3j LVLsJbt1FMP1COG1KNUtMA UoE7XwIP9hVDJnjOTyQWy2 r5zosEogPQJuBQT3m0snXR asicE4QN4rat1opXo1o1tl czEgRGVmYXVsdCBQYXJhZ3 UsjCvyVj7fjAb0kZehZiew BJM1Pcq1NL2nmf09mil8dT qwDUKrvgkcLwV3LUpgFGVw iadyOYz8WNphPNKkjIZ9XG InyQKyP3HdONReXM8oiov3 SDT3BQexKRCbBaH7HIPlyD OaGXVuiQyvIHekz351OJA8 DjXyQU3pC7Stk1Q0vO7auC LdBXKkhZYzPvFlYWNeyi9p lQMlLPsgl4ZyCAI0tjW0yQ SakQPeVUCaLX46Rhfdv5Sj TuucLNN5KSFerzAuv1Kph7 sdHtBqbmNqM6ftW6DdKHYs VAJmYBEpGpVwzrQtm5Nyn0 GrxXLmyZy4x7icBTFvHVGu pZuyg0fbRXL4OKDfZ6Q1jY Adm6lvKKrvQGSbaBX5tfA7 FHOblBAaT7FhdR5tDNTtMI 3rfys7q9afXQC5AWfiOIRm FmP9qpV3UNSuxKVpKDZcgZ zzXXidh308IPC9OwCqYKEv z5McZ5TdzCetN66grWzbM5 6hQSMzdDussG4ohWktfO4v ZjBcZnMyNFxxbFxwbGFpbl xmMVxmczIwXGxhbmcxMDMz QBxeW5bwCcKvTIRofBoeNA jmk5DnPODgDZZpEjdubeUv XHBhciBJIGhhdmUgcGVyc2 9uYWxseSByZXZpZXdlZCBh lLfwv7IwN0opQR9kD6LycU XgkiJmiaIkWBvrPYJic2j6 eUYhnKvst6RgqBXgKO92qm OjUSViLRQ0PPSvi6zzZX90 bcogAjWtwF05vlSrdvHhRM Glp4egS7qfdCDjs3Zcn8If doOiHYcoy8PhPW7agPMiag tqrQN4CSIfoMFnayUeuvI1 mPvfTTJtdY5wvX2bqJfhoW 4lUpDnToGuSQafSO2cZQCg J6mwpZWtWQAtPBJoM9icCc OrbF0plYrjXouesmP4PUNs cn19 Clinical Information (test code = 1568027304) Shivani Schuler is a 47 year old female with IDA1. Gastric polyp x 6 r/o adenoma2.Duodenal Bx, r/o Celiac disease 3. Gastric Bx r/o HPylori Gross Description (test code = 6608739186) h2yrgPUaTIRvjGMUSMQ2AU EmCJ6ruKqbsSf9aZgdOPXi moJ1rCZyRXpuw7ksYOM3r3 eimiJWSjohYXNyZW0dULni NSPpLU7zPtJmVAIyPdEtPF BhcGVydzEyMjQwXHBhcGVy yLI5QZRsYW6dcvjjIWujQP ryXUSliiO6ZVMfpZEaI1To CITnPF2jvqacNFC0XTCSZc moDs9nkYMhwReeJyGsAfCb YXJzZXQwXGZuaWwgQXJpYW x9bJ4PYdjzYXU1WVRRTquh MmgpbRgtc5AjfFYlSKNlIH xcaWQgNTEwMDAgXFxkYiBP AaUrJtK8Dsk2ROP5XrX8VF n1CFOXIJIdWgvlLKN8CxL9 RZo5JRPbDG8bVAimgXTiQS qgYptoYRfzC306UZcsGYSn R2MzR7BhJWnsMpGzETleAK MlEXNkYTknXHSfM1KNRRHe DZO6LnOpGRJhLQi5YVvbV4 STUVRfLNWqGkJ8MVKnGrF7 QDt0ESIZDu8iGWsbAsUzBH l2RHE9CLr9GiInVILbPaOo VPZfIIEqKXcdjHQjFQ5tyM lfISZmJC2WGZWlNLqoLEAo KqKsB7JXE0gGSZ6yOIrczK JjaFxmczIyXHBhciANClxw VQReJF7KNADzDLjwFHm3qg IeMYLvVqMuDIMnD95pn0YS v4MaHW3RDPq4mxVzsxvghG 8eHUIaeaEoLQvZgSOryW2m nvOLVZfgKFXyT8GsqcRpED onFBNxrr0swSjvKPyjHtBh bGVkIHdpdGggdGhlIHBhdG nizlNdR5P4dsEbZI7yXINE LZXbsN8rSMSfOLLsq8MbgL IyeIajU3QswVOzZiOlh5u2 dGD6IZWsokRfULXifYXvAE Qouo8wBUabHtLoN0Y0SOAf LOMir90poDI5miCnCoFfaM x5vIWvUOB6XQ7tuFklqsFw f1e8jW9lPYGjz9W5AXCfv3 Z7SESxmoBzhVMqvXPoXSHy GV4ikoQbNW46AKRlQOqkHP kfVBG7UIG8NQYtpIMjt3yq fgtqSt2yYSneOG5mFGqaDQ 01WFXlNGroRZLvI3DlQ3F7 GEkqMYUrUESewAMalO5nth AsrqMfwSa0DKLkOQD6uSZz wNbrAVCcVhjixVN7FEXkJk AoyzFhr6NbiAj2vJYyAHki SOFkiV0gfC0vTPDfMLPlxk XRUbzfWPPnSKpsj9LmMFkt cGljWHNhMzAgDQpcZXBpY0 5tc4AMr3Nfa3kvyZqzj9Ro gRZtQB6oqWGpQC4Lg4sfDH ItyUXqVCS7JZxnq1urMWrr FPD3LUHeSxElTABfXP2PEr HsOOpuUIj4GIplAOh4VGm5 PY7NMxNcQSZnSab3GkZ7Pz LiVWq1MLnkZP2PZOM1AQMd SZHlLPvoAES0CYJrFOm2XJ IgXFxzcyAzIFxcZmwgXFxu Z08ylZUoWBeaKbHeKAnqhX ytDOZvTMO2XY5KEEEzWjJo Y8BQK6mEIG2vJvzukeAxDW PmsdDKTpjoDHFgSK0KWYJb LHzjNDs4mqHbQWEbQhNcVD CtN31qj5LNf0XvMG4PXXr2 buKlirkbiK4oEGElabZhl3 IzMFxlcGljWHNiMzAgDQpT lUGfuG4nevJJFGsfVWVaF7 OeyvHxIMntDKNsos7otXms IGxhYmVsbGVkIHdpdGggdG blMJUxnVrarrAuG7G0auLt CY4hXTJRUJOknT0oVBDoDH ZrAUPkWNQszN1bCJH2g1Ke buDvWMZZPCMnzDjmWI76uC BjZWxpYWMgZGlzZWFzZSBh mmGrbcWqc43sxdHsg1XwRC 0oxKgdWVdDDOulZnKkNF8k JXIziuNoz3FxBK0uZLNmqM UbMYTjqpktsOTcOFk9jOCx YMBiQoLvhDabx3SkEAHeMV vyUS70eiDzZI3wUKsiTH8j UByfKF4vVHJwHSVeLLPcXh IssBHjFqPwcCXzBdNeC52s GaSTwQUsh5AaW2cyOH1aoG KhBymlpWHaJYAebUhvn2Vl zRNjKWRhb6UsyXBeCIdxSF 6xTKW8Wj3noRSbXLKpkkO1 e2SqNNevRZZsFlkuRHTsCS yky3EbAJEfbAIYk0CfJO6O XHBhciANClxzYTMwXGVwaW VRh3SlAIMZNqzzfDgtDvAl mSFzBlW0PNKnwNWhKPC2KT 3uzLkjSREtGQo6UWqzOEOe R3CsX3IhBRfsSeShRZesQU VzVZKoZFihQONnZ0FJMEQl VPV0PpWrWPXzZPi0CJklH5 WRYNPgWLQwRvU8FFP9JaU9 BKx1NYTTHm8oXVerZiUrOU UoNfU6KWe8LjFpIECvMqJk UJFvCBCcNNhuqKNpDM6hcZ lbADXlFIBbMOO3DDXkfNLX j3MsXLHxRPhuXyGuAGSNEG BKMT9JAxYKVDGdHoPzhEDi AA2PGYPsadMjVEuniSvqkY 2jySPnH2vqJhUgXhnqeTtk TmVzdERvYzEgDQpcbHRycG FyXGxpbjBccmluMFxzYjMw ZBJdxENFd2NzMXVGNoPoRG NpbWVuIEMgaXMgcmVjZWl2 BNGprV3nIu4gcWZklK5xcM QqCYsfHZEiu6y3bOZ8oKZc ySH9yMVwbHmjKgNiXC4bmG EdIHFPXG32yZLiisEnLPHc xK2tHCWaHGUfJAO3pxkbEE PJFWW4eVVxa0K3HQlsRTY0 sT1glFthEwJmV5D5FHTqUU Eaj31gfFL6zfHhHyIyPGBh na1hjN4aEMldyjFkxLwfrq Dlf0M8YXSwb4A7QPPjhaQb eESgfLKlPISzBuI2RTMiLl V3OMRmJHZbiRWoVELmTZ5x VGhlIHNwZWNpbWVuIGlzIG SyaKPamzUiUERfav07I6mw ZDZyiB9op3pzAqGuPIQsLM ZxuCXhoOT6KBNztO8duA84 dyOtzaUZAZ5fpELrOA5OYU NiMFxlcGljWHNiMCANClxw SZQmRBhbb6TtBTkbzVpnMX UdRqBeXEwEzRqpOTETS6hx mGQdBNgbHMXZDNlIV4WCHR 0NFHJtsTPBGXF1OQ5fEYto OQJdT6WbI9InguP7s1prgT lze3NlmLJaWL9cfSPoKA5T XHBhcmQgDQp9 Disclaimer (test code = [id number]) u7hkzNZjFIKzr6ixYAVtsM FuZzEwMzNcZnRuYmpcdWMx LMacmnVvILtsb3MsH1JqBx AwMFxhbnNpXGRlZmxhbmcx MSDxTJZ6cmWwPKGkWYodNN RtUVozEd5tgRVaoFqnOmUb BYXyc4ulauEHMTctKhPrS0 60FRUsQKpwj6xbh0YdJFAw oWHnp1F6DDJSkwpmrHu8vV nrR93or7T1UvixH4unXRJs MKOmP9FuLQ7xWKFrPeu4VN J6QSI9TVFbLZCzG4QsXO3k NXWcmWLfOOo3c0jqbJdoCT LbAVN5k8ijMEyyteDmAB2v pr3pqGs4e3omlgIfHQLwDH SybIGGUBOmG4YrsArhHz2q lBu6fKknAxvtWXX5Yjs5BT 3zwp14kcu5zAweZVUcbcrw JgY6YFtlCIYieiqvXTx8DI klOWDmdGE5XXEtjKQuM6Hr UCVeIB2taft3RHA9LQqvVM BbJkM6NDMwoMYgNOFpiAcy JUeql852ZBG1QsCcYU8nZ4 Brl9C6jS5ieRJjBWJpzWWe PqMhDXEvmv1czHYyWZtjd1 YfOBK7ltW7vQDksLYjHEOb MG05Jyxnl8JwVrear7QjC5 9obKG2UWucj0ogGL5kYqR5 owMgVLlph1hjfD8iSgT2JK afGF3yYS4kHIJweK1ucftr XHBnYnJkcmhlYWRccGdicm HcSa0gbOecGFV3LFlfE5mk wV6bIfN1FKvpD4euvY2jES b8HTsrbFQ7YEMzdL9xOQ8p zrbch7wsBAbzGOpeAKIebe G5rrN4SJJjeSFhA2WkgT6u UVViAY6jedyev9cwEWE6EW wmUAIaUXQ0MdQvEWVwf6Wk quf0DiTpr2CmjJJhVQxiN5 1uv684KNXpevBaU9dqtCNy mrejnWIgrsclOFrsykF1LS TbakPmo0EmYBGpXTF0IHwx QYuzcBTxOQPipRhms3fgA2 RscGFyXHBsYWluXGYxXGZz MjBcbGFuZzEwMzNcaGljaF jrUAqdTbOoSJExVKmyK2bt OwFcN8JwDEIwTvUogDMjK2 ggVGhpcyByZXBvcnQgbWF5 UWvjI3k4NQQfutVkoQk6xm YuHqLnIUWnGZC7BDvfiOId QIHvm1DpcjxwhZArLx8lhL NpMZCffI2zLETpVIWqVJbr OD4toAl4YXVTfYOouECxKd LXAZCsOJ79peOqZKLSgwiv k0M7FKrzXPBhf9DvdEYhI1 kzn2SoMYCpo18gPQ0lp2V1 q0kxVDK2VJ1ty0DcYYWmlT DciNWyYVHci6Ifnznam7Nj HZBbzzIwl4OnUHZezdKfaH MbFSIksdLnwl9mhfZuVJOj WPXvT0HvduhkpIvybzZuSH Ayet7iixRxZSL2QJVTVUAo WNDcw4VwfY2maHIOHMW2kF Hcvf1ocwIAxCJkFPZcrb90 ASFcWK7tN7gsTBAdMVRqzk DlxBYyc6UyIAWmtWE1xZDg OK4QNqZGf77kXOTmAQZCxa LxNNCtkGsxqNF3vsF6cB3d IChGREEpLlx+IFRoZSBGRE IzER5fjaHjy1WpsnWtuDdi WCJqhLDhi0EpuDUur8PzbG kyw2SexVJnxARvSB4dDAXx clxwYXIgVVRNQiBMYWJvcm B3x9GgVXPgOYAjHCR7gXwj owt2XLEguR5pKAPdF9gbxg qqDVrzKALco7SneM5bkXPO mXEpg8LjoESkyDDTzVUeTN 9ykrLnBXeNUZsLAVM6pdWz XWTiq9VyBXmuL7yxO50tqB krpHs5cBI7IWB6kL5aSmm+ IFxwYXJccGFyIEFwcHJvcH KaXGRujAozluFtE7LvypYw mP3svJWlrzSuAN8uLK9mH2 Q8zOXaZWWzqnJov5qfBWhk dmUgYmVlbiByZXZpZXdlZC Dna6DiVQyeGRY1WVsewqMk bmNsdWRpbmcgSCZFLCBTcG TxhUKrZWU2SWzmycZkilUn TT1yjD8cyXxopM4ffXZwzR T3itqsXCTkCCOmsUnjFEWt HV5mxMlcvN2mKdIvDaPoOZ qxLX4fKXXwN3njwMFwFPUc HOOrU2dbIkQwaV0mvYsmAF xjZjJcZnMyMFxwYXJccGFy XHBsYWluXGYxXGZzMjBcbG FuZzEwMzNcaGljaFxmMVxk WfUfSNNzDVxvZ3xaSjVdU5 BzBFIeOxLtbCFaT3zgPFce ITG9TGPdHP5meMDbFX97gX Dpr8gdOXctdWnwis6oT35e wHVpRGcsiDchDEJmg07cy1 FgKLRkmpPtek1eWBXlvyV6 yX1dHYLzeLklZZJymZOaYH Cbd9OzQNbuuZTqceHzAGmb PLDoUVCxyJCbmsR1xfUhuu FnxlYuNOOnkVkmIQSqo2Au UQTbJWlhs4Dzev9rzTYjTL OuscYGrCxvtCNbkF0eZ8Rm ADVaGHDmvx6eSUPcaU4oWX dzh4YgquybZOZpBOFoCVTl wtXysd0sBGJhjBAFXS0KAC aibBJth6KbzoVsM7uOQME3 NUQwNjYwMjgxKSBleGNlcH ZtBSJasj58MBBteN6lkZfw KNEekC1chW2cqWibqB4qBn RwZlOwEVulBE6pPVIwL1ib mQDiBBAdRRXgW5jmQnGwvV 9jaFxmMVxjZjJcZnMyMFxw YXJ9fQ== Embedded Images (test code = [id number]) [id number] 19:23:05* Test Item Value Reference Range Interpretation Comme nts Case Report (test code = [id number]) Surgical Pathology ?Case: [id number] ? Authorizing Provider: ?Dominic Keita MD ? [...] HPylori ? Final Diagnosis (test code = [id number]) k3lrrWArULDxg5dlPDPnbR FuZzEwMzNcZnRuYmpcdWMx BQqjxhKpEXxszLnmHOC5CD NaWW1dyNzieGa4iBanKHIb ryQ3gTExUGzkm6ydOIR7l1 bfhlehDCBvFMygSo8gtUGx rEjoYbZqDJErUZy8pU81UX CzzP1jlGOdRFm6CZXznHMz owFfCsXsKIMzvXWadID8JB PzZY9chjveUGwbTWdrAUGo hqY7XCMdoPQkX6UgEDSeYW 3idypgRFW3BFkiQJNdUYI0 YaGwQHJss1Pnkvz3XqMjnM FyZFxwbGFpblxmczIwXHBh bwQPOsUGWC0FOFIRIAVAX4 xJERKKPV0YNDCOUzfpoVJj WSHaCCUsOIPQGM5TLHVbV0 hJIpAqVV7ZOHBpFBUdpUAn ZUVmtjYZDeMJWI7EMM1IMV wgQklPUFNZOlxwYXIgICAg XFTuLXiIH2ZIEFUsKGMRM6 SEZFvEGVqmQl7kTTYTLM6C G6kMP1KHQJMUTU2IZBnvHT DhNLJkVBCjJP5VSCbxTDAR IN3YTGGHVNAOKPxBKGDZTU JYAXhLXCAHZ8BPNBkTOJPq pzdkGKRtYo8qS6NJPUAUMU wgQklPUFNZOlxwYXIgICAg JJKsYWUYH9FNTpXOMN2KF0 4ANNUHQQOVZY5NMHHJNFvA JW1RFWQRKUNVSQLZP7DjaG FyICAgICAgLSBOTyBFVklE QV3KZORAVvMEYXjEYHQkDT lTRUFTRVxwYXIgICAgICAt OD8TFYqgOTVNGL5DWQAFRp dBTklTTVMgSURFTlRJRklF RQWGUEAIFM3QNi1FITTYIu xwYXJccGFyfXtccnRmMVxz g5VdV2HeIgCtDLpszwZyWV FxGfajnanxHJAsJTH5tcLy PWLgUXeqCZFqGQgfIp2frI UfiKteEeGpRVBwt6fctgUX KDeoZlXrI370RGGiEIwqu6 rvp8UxCYXjrRYqg0Z1BJZT tfjiuHf8b3wnTmDiXeA2iP YjKSdhS1lswsWfuZHaU1Lm eLLydRv3rHqiG85ij9D9Bv ibL0lkYTZxNGEgZ3FpFU3v IVKvOwd6FGM2GCF8QPOlTR IjE0WcRM0yMIPlaAJlGIh0 w7dgiVijZXKiUDQ4i0igCI mdqdF1EH6yrx6mvQa6r1lt czEgRGVmYXVsdCBQYXJhZ3 BoaEttIt2vxRm0tFpoDtkk TTF4Bqo7PY6tka56qte8eF cdTWKyebkzLlN3AComRHJk qshzDQf3LCxjWIMajVQ3TB OfkZVcA5ZmGMBbGZ6trck8 AWL9YSvcHSLlKrW8OWVtwC EaCDTlxSgjPFqay528JJB9 XwOlNJ7nX0Www4K1kK8hkA UuFQJweVVhMiDaRSInpi4o mUTdXYckv0FoWEL0rwA9vN YqfUByPCTlNK91Pocmb8Ii EirkHUD4WHTadnZgq6Zqt7 nzUtAjgdMyO5nbT9FaXXXv JFVlYQJaKhZgkjLxb3Ind6 WikBWisFc7e2nyGALrSRYr aMfdh3jlBCL4SNIbM2N9vW Wrp4kwPMcuPVVtvQZ8lbR9 IHMqtBGyT9WcvI5bENPfWO 0dabm2x8kmZXG1SMeeNYTo CmP3gwI4KMTarHQcCGSkmN laPPtaz288ZUL1YlUsUZKh n5LfQ8HtnHcyZ67laHeaI1 0vNCMrqWkouE7rdTfnjX8o ZjBcZnMyNFxxbFxwbGFpbl xmMVxmczIwXGxhbmcxMDMz GPsuK1tmLdPeLHOilHuvQI hhl4HkJROmQDSxBllmcgOe XHBhciBJIGhhdmUgcGVyc2 9uYWxseSByZXZpZXdlZCBh cWolo2PfY2ziNS0hN1LskP HgeeMkkcBwRNpjQURxj4k8 lFAdpHnza2GryUAeRF20iq TuSFHpEXV4UAUyh3naCY31 vooxVqGmcK88xwDecxRxEY Jjl1yxK9qosIJru9Qoo8Di iiDmLCock3WcGG9inQAuyj heaPY7BPBatTLlgvZpoxJ0 kInuAAGiiF4ahA7nfSmofU 0iSpQzTlXvRUrbRP9hNSHc I7smlVTiFPLnWDCeP9xaNj XgoA2rwOqoOftruxF5ENZg cn19 Clinical Information (test code = [id number]) Shivani Schuler is a 47 year old female with IDA1. Gastric polyp x 6 r/o adenoma2.Duodenal Bx, r/o Celiac disease 3. Gastric Bx r/o HPylori Gross Description (test code = [id number]) c4pwmZIbWOEzbFMQJUR5YX QqWW9hwIcxrCz3uBtvOQKg fsD7eMWcPCyjm6luIKJ7d4 ftahRTTlnfSVXzNK2uYSlt ZUOaWW4xTvOlTMPsOhMwON BhcGVydzEyMjQwXHBhcGVy vEI1XKTdQY1ncxziKBnqNO ynXGMpekW0VCBapKHjK0Xv XCHuRO5tjcmhSCX9MRMHBw lfFp9siOIpaZynGkHeLfXa YXJzZXQwXGZuaWwgQXJpYW t8gE9WEdksQBH2QHFXVfcp TejciRghy0OtrAMsUWGmTJ xcaWQgNTEwMDAgXFxkYiBP WjYcBmT6Kej5JXX8EzU6UJ h2NCDFUCRhXksoRPJ3FvY8 RQr9BSMgFP1xAUwcwFPnOF zvGbilDWwwB097LAcqDZXo L0YeX6TeYGrvQgGyYZfbOW QrJCUvHTjrUEUuM2RKGTKm NYA3CrErGEFvCQj7JAulD4 QBOMUhCCXlIwL7UHIoKuT1 WJa2OYAKQm7bUCeoIaRbVM p2KIS1DKc8GpYkBCTfXeTe RFNjEPUwXHnvnGJdFR9llT nfPRRfTM8KMDAxZFixDFCm LhTdQ0UWS2yUUE8mLCytfP JjaFxmczIyXHBhciANClxw OJOfJG7XYUHkVDudOGk1ys LgUYKlQyEpJSNrS01qb0UX x6MrFJ1UGOf8inDimxezpS 4gAXGfoyPkOChYoRExmD7b bkOQTOinTLUwF5QosqWgBQ qhRCCgtn1kzHfiPHtrNlPg bGVkIHdpdGggdGhlIHBhdG rhrmOdF0F2ztDrJI9rYAWV WUCrkQ5nGLZyMNBvz0ZkpS BptCylI2NpuMWwUmPmn5p1 bGS6SVGsblHnQJEuxJIcGH Awkg0dVPclSpRdG7W6ZCMe AGKlb02mfJI4vyDqEcFdhT p9wVGbCSX5CT5bmYjymiVa u6s5sI9bLWPcs2Z5CQYki1 U4UIIwfpNriVDrmKLnTWPn ZQ9kdeCxYX16FSIzADmiRI cpLAQ9UWH2YUFanJKqp5me cvquUc3yNRhpIN4hFNljMB 30ZPZkBHklDHOcV6FyT1Q5 TWndKQQaREUrpHJmlU0dzq VkkjExjYj2FCOoLFF4uEJt gHezQLVvNcyupDG1SDItJu QfynOen8AmzUn4yHVtLAst JEJweF1rsU2yNRWlUGUgec GCQuvrRXUvXXqqu4ThLWoh cGljWHNhMzAgDQpcZXBpY0 5ke9EAk4Tqv4agmTqcy1Pd sYHcUU3vdOAtYQ5Tm2ivFG KgfZHgHWA9IKchj2giDLnn DAZ9RJHbDqXkGXAaWS9TIz MxDRffYPw1JXqhJKh9LNg2 PS6TYqZvHGVyOxc9DsY4Cs GyBGl3HDkeFJ2HQDH8UBVv GCQaAKflJKX5NQWoWLl6KR IgXFxzcyAzIFxcZmwgXFxu S85qrPCbAWbcIpQvLPpwrW zeXJZyZYJ5KK3RGGNlRtTr Q3DLK6qPUD6mCmogsqUiPQ SukvIBLkvwXLFxBQ8JQLWm IOryDOl2lfGfFCVcKwGoUE AkT06rc2BTk9GzWT8AHRo6 efDrxhqtcN4lOGMnbbZgt1 IzMFxlcGljWHNiMzAgDQpT xJNzwF1tylHKMJgbJYOfW6 JykjLgNFvnSVMlns2ddZdc IGxhYmVsbGVkIHdpdGggdG vlIDVrtYliknPmB6J0pdKr BV2aHSINHHJeiY1gSVXfEQ HpGLSoYBKvqB0qYGZ0w1Il phSsZHGFDEFviPmlPX06wX BjZWxpYWMgZGlzZWFzZSBh lrFtfkMry11sfsEfj1DaMU 3opLqlDTyOFNudCyStOQ3m PGZbfyCaw1CxOJ3iRCBxgC DtNXPfxjxppXSlPHd4jPZl FGWpDxOqoWwww1DjSBBpKK tqDO30jtSaTT4jIStpLV8l BVarJJ8bPZGmUYStXVQhJf YfjQKoYfYnoETxGtTcW77x OjSXaNLlr4TbK1laVF5feA UyAodqhHRoQIRjvAqeb6Iu zAZjFFFri4SzgQJjQSzvTI 8sKZN1Yx0hhASkEIAojdY5 s9FzNYnmLTKpJmzfTFAbSP aav6PtMBTklKFUo3IsYG4J XHBhciANClxzYTMwXGVwaW MWt8UgCJZQDoellTcgQnBc cPDlHaQ0BMCiqSAjAXN4OG 0wcGwjJQRvMJb2ADltZJDx W5GlZ8CuODgrJyUeKMmnEX EdZWOcBPfmVRYhU9OWLREm QHI5CuGeASObWHp6THteM1 ORLNCfUXJoSmV3DWZ4AnC8 AIg5QUHIIa7mFLtlJhWgWL LhCxJ9FMe8IiHgRYOjRiJf DMEkOMKiBWhobEMsAA8nyT zzUYTmIDDsQFH7IPCitVOW u5JcCUWjPCwkPuVvIZMJTE YRIX4FQnDUEHMrNbGjeDBj YV3VAHJxxpInGChaaCewkL 7mbQLiZ9xiWfZoVyrokQgy TmVzdERvYzEgDQpcbHRycG FyXGxpbjBccmluMFxzYjMw DVEdcWOSc8FgQWPMDeCgGR NpbWVuIEMgaXMgcmVjZWl2 TVOknX0mAs6zkOIoxC9idI ZdBPzhBHDvg1s9oXZ7nEKx uSE7hEMpoBswWaDuWX7jkH JbWZVIKU61xKHbjbRxWNPf xQ2bFUGtMQYiZQS4qwuqZK VEEVZ3aNBmy9R2TXlmYAQ9 mJ0zuKwdHxXrV1Q8GGSfIQ Xbp38jaPC7gfJbWzEtBMQx hy6wxN7zXWsnpqIezDmrdx Ews7Y9CHMel2G0KYVixaWf ePDdkOAkDEXxKmH8NZQvJi Y5TNMvABLznVUpJZRuEA9t VGhlIHNwZWNpbWVuIGlzIG EaaFWqkoTjFMWryo88N2hw THXtdV6ps3fkWdAlHQGgMY QjzTGtbNX6UYPntN1liJ97 ncUwtxCIGF0khGXqWB2VNR NiMFxlcGljWHNiMCANClxw EBOaIDsik0OfQXpevNktZZ UkStSiOHmJvHlbHEDYT7ar aQCaNYmyIQKSBNhQI4DJXB 3UEQAxwUVJWNP9EI7lSXew CVQoT5NdC7BohdB5z1kdyO sng1BupZStXM5smTRxTQ2K XHBhcmQgDQp9 Disclaimer (test code = [id number]) k5musAYvRQKjp4aeDQYinP FuZzEwMzNcZnRuYmpcdWMx ZLkosqSqCXdna8MuL9MdSz AwMFxhbnNpXGRlZmxhbmcx XHWaTII0irSgYPLuBXymDV WkOWvsSb8hrCXhgMxqKgQs TRBco0dgpbALWFtzPrPsZ6 86UXVvZBrav7snb7TbFSOk pZFtk4J5RJKJjxptbLc1bH yhE50bf5H1EvyvW6ehHHIf VBGlY9GoSU3oKMHfUro5LG P6TPE5BXXuLPJsM1GqAN9j KJNutKNjURb3z6syxLmyON DaIDK9u9fjPJavmxZyPM0g uj7uaNr9t3qtjxTaJXQwRQ FtqBWSTVZuC6WizMsdUr5s aUm4hJxfKmscRZP1Nyx2XT 8owx54tnw4zLeyIEZbdizh JfX6SShwHPOtxzlnYSm8PT jyIQWoaIM5ZHSzzDJwC4Zc PMQzII1mpfa8ITR8UMbyVJ DtFzL9YNHtxXKnMFTjgOmg UAmzt900WEH8WpMqPP7gE1 Cik3C3sS7vgVDfTVMslHGj YsGoUIXhhd6loSDcPRivz2 DrTMV0whD9nKFovJQuXGGw DV71Hoczl2AwOkloq9TzV4 5gqIC0ABuvb2paJK3nKtW3 nmLuDWlnf0ugsE6xMgT3SZ ndYE3tHS2nFHAioH3cbdvw XHBnYnJkcmhlYWRccGdicm HtUj7ocCnxIOY3DGdaJ0rr gR1iErG5DVlsW8sxbD9uFB q7QElwyGU4WRLygN4mGY9j wgbbe8dkVRfpDHjnLTNdgv C6piT2DAVkuISoB2FxtJ9i TXQhTO6ijgpbm3sxWIF9AI ueZMAjFJC1HrUfMKMvj3Dh xne4MgKyp7ImvNKcXBvqA9 0xg939FXFzikJvN7ipvWPy ccvebMZzxtffKKcdmlX8FK ScqzDsq4BaHPKnPSQ8BThj XSnmmZCgKUZniVrog8bkU0 RscGFyXHBsYWluXGYxXGZz MjBcbGFuZzEwMzNcaGljaF wdJNnxNvTiFJMzCBydE4tn GtSbB2BaHPZtDqIpkNMgH2 ggVGhpcyByZXBvcnQgbWF5 TXjbI7q7VLVxxzHrnUm3bx KqIyUlSZGtOOO8NWoaxKNz QAGah7YqbeddzMRrAv2gnU UuKUFdgR9yHKDvLBRgCQeu TO7ybRv9WYBUdCXuaOTjKt NBLHEnHG00ryPcJMQLwqpx k1X7CUpcAOTlk6KhfCLfP7 mxh1UqDDKvv21nJF0oa9V0 t3yhBZO2GZ6ve1LuRLZrwW DtaGLzENSjp3Lfektjw9Co RXUvolLob1DzUUEnkyBfnZ PuVWQvopCdgt6wmoQgSIJg YUOfT1MhiiinyJzkvtCrNU Ijvz7zhpTnIAX2VERPQOQe QOXsx7AczO9wyMMIBWZ9iK Cfpd1guzMFlEGyIMTqsq52 OLQiFJ0nW8odPPBzIMOrok UlfOUtm4ZnTHPlxDJ0rZDc YP7FAaPDo62tHNYbNRTUnk KmCASgnYnpiTW3bcH2qP9x IChGREEpLlx+IFRoZSBGRE MoIL5bayWtk4QwtoCrhRmm FNOqfITfs4XgbGDhu3XwtH lfq4UnaDKklVSxRV5cWIHw clxwYXIgVVRNQiBMYWJvcm J1f2SnJSCbGROsKVY0uXit cvc6UTHqxP1jSYLlZ9adjg hmZYprEPNjp6AyyU5plBBC rWLns9XhmFRifVDEqXTwRS 6whuBlQZwOXNlOXFD8ohZq PZRmq3GpEVigL8ifW72umG qrnKm0bNS6CJV3dQ3nJxd+ IFxwYXJccGFyIEFwcHJvcH XeVGLnhQbvpoVhY9FptcMk pC7poXKmyfLgNG5qQJ2hO8 X5iJRrQMKdowDxf7xeJBuk dmUgYmVlbiByZXZpZXdlZC Xzn6PdYTdaNHS9TNdeluKh bmNsdWRpbmcgSCZFLCBTcG PwwFTtDWW8LTsgkwEpyaUe YN1ebE1nySbzsV7ywUPghO V5yaggHIQmBKQhwHdjLVXl SG6jmOdlyI2aJoZoPwSwPV knFN6dWUPsR8ibxOFmRHEv XXHfO6bhXpXnxT9agYotNM xjZjJcZnMyMFxwYXJccGFy XHBsYWluXGYxXGZzMjBcbG FuZzEwMzNcaGljaFxmMVxk EkAnNBXiYDggQ8coGdCgX1 XuBIFqUsOcpKZuC2xsBQgo CMP4UNMnJA4zpMMoMU17gL Lyi8jtRWiqfSybkd0kS98m tGUzGYerzEseDNAzg19gl7 GhFPJxccZzfz8iPGTesvO7 tV6lYQMppBicURRwnIHzNB Xtw4MtTPvtvTBcmrLtICnf LTLsJJPtvKLavtE1svOfmj UvptUtUYQemVmfYPQcz8Bw UKHbWMfqw8Jmea7yaPMaCX PierKBoJnvzZKrfX8aQ4Mn MSEpOAFuud2dJNQpjD4qSH nwc6LzjibvMZCcFWGfQUCh ruSpgi3vVHIlzUVMHS1ABR wzwQVyt9QfivMwU3jTIKK2 NUQwNjYwMjgxKSBleGNlcH SmVROwhk25TGLfnM9keNxy VSKpiX4zoZ9clRatoR5wEe DsBsZhYStxHV7wQUTtI4db dWWiNSVoJCBfC5xoBwBafC 9jaFxmMVxjZjJcZnMyMFxw YXJ9fQ== Embedded Images (test code = [id number]) [facility] [id number] 19:23:05* Test Item Value Reference Range Interpretation Comme nts Case Report (test code = [id number]) Surgical Pathology ?Case: [id number] ? Authorizing Provider: ?Dominic Keita MD ? [...] HPylori ? Final Diagnosis (test code = [id number]) w2cdzTBsLTEli8ebXGCtcS FuZzEwMzNcZnRuYmpcdWMx LRsttzCoMPvrvDqwAMD0UJ ZnMF0afMwogXo2lOncCXJf tcO9cPIbLQupy1unOIX4f6 uetsrnUGEvBFwgAk3mjXWq pAwpUjWhLFCjNXv0wA53HO EdsS4dlWSqTMp2DLGfhKUi hxClLiOgLTOseXUscLA8AN PhDE5pcszbIGltLGlhVNUv rwO7OHLzaDQoC4XqHNXlCF 0otsgaCQL9NNekARNuLCX1 ZaLiOOAjz5Utyzv1ZdBkeS FyZFxwbGFpblxmczIwXHBh oiNJNqDIDB7XRTIVKXSOG8 oHJFMJRT6ZPSSUJbnmcFQi FYFtMJIrTKIDMI9FVUVjP8 jJFrCpBY4DOCPkVPDmcOGu VHBsmlBIGyUZNQ2YPU0HMA wgQklPUFNZOlxwYXIgICAg YBBxCNlEL2NVMLGzWKVRY6 LUUOmMJOszCj2aIPZITO5C A4lWH1XUPMAIFE3FDFhiBP YtTJAnFUKnRT2ZIXqkSZKX HP8VZTAMNVBMXRtUVJDKJT DWLDvZBEHSI9YJBTzOPQRy qqkvVNEoWh6pI9EDMUUVKF wgQklPUFNZOlxwYXIgICAg CIHcYTHUD8QKYzTHHJ1KB0 2NPZPWHPXJNL8TASGKZCeT QO1OHZJAADMDZDNOR6AhqL FyICAgICAgLSBOTyBFVklE BJ9ZKKCRKdVXWWwBKBXbFT lTRUFTRVxwYXIgICAgICAt HR0PILicNTTZWH4YCRIBNe dBTklTTVMgSURFTlRJRklF NVGHIZXCZQ8CFc8ORXRXHo xwYXJccGFyfXtccnRmMVxz m5WqP9WsQjAdYZraaeVtMQ EyNimopdtzZFEmZUK6kmKt NDGnYCspQZFgXGjvGx5txR DckXrkNdGeARFqb0mwqcSD KDzeIpDrR375RRRpPMbxw2 wcy5HpEPWenFTas4E7STUS jrhafXl5g5xsHeSwDmD7gH GxCJelP6jzdrGjpGMpA9Fv oTBbrCu3pNixD41ck0Y5Ck lcU0slPOLeNQSfZ2NpEV6y NQKdAni3MUF4EAY9ZXUdBI DbF5AbAO6cNHLokZYiPPd5 x9jphUxdKTQfUGA7n0knMS rbmdF2MT1bxd4xjCd8a7we czEgRGVmYXVsdCBQYXJhZ3 XxyGhdUj2svNy9uVwnObog YXJ0Ouo1LB6otk02cvn9oY byJCRvbkppRhW4ICgoSTXh raunNZh6IPcnKIXixFE3YQ AnqIAcR4YfZYZcJQ1gzah0 BAU3OCbaGRTxQpW0HWUtwD JuGWCygLneSIqrq644QOY9 HsElPI1cY8Jsa8J1xE3rbZ BqQRHvcEHmJqKiFOKiuz7h yCQfAAzvf0EcKPH5usU8eC JklWNdTCLeKH71Ieeps8Sp NbrhCVG2CMLnrxVra5Ooh2 niGwKrgoNeF0vxG9RfLOGd GAIsSGFoXuTbkbAdj0Zyo2 CclPGlvQf9u8qoNUFiGEYv jGlwz2yvHSL7TCZuM3M8eE Mzm9ylDXoeQSErmSI7uyR6 UNAjfUDiB8KxuJ0yNOBtUX 2qgdd8b4wpRKV6JPitNEEr PiG5xdX4HEHveAVsFQTxpZ uwTFhkx088MEJ6ZvGhNUQc h8HfK2ZxyRalG66nuEqjY4 4tMQWxlCrfpW5ozAbnfC1z ZjBcZnMyNFxxbFxwbGFpbl xmMVxmczIwXGxhbmcxMDMz YFhkJ1frIsRkUYDoiBjrXB gvk2XqITNiXQWzXqdscaAz XHBhciBJIGhhdmUgcGVyc2 9uYWxseSByZXZpZXdlZCBh qGbev5RpT3pyQQ4lK5XthA AywpJgwcKtQUzdRMYld8j8 dMHsiVxck5YkmPQtSC44ub HlHGQcEGL2SXPdk8zmMT48 verkSkDdfJ17geCufgKsYU Bfh8jlT5ynpEYve8Wgk9Mb xsPfQMbhn3OsBT3lsUSwox arvYI0WQGicLKuqrNandX1 bMyjBBSuuT2uiU1vkBbsyQ 9gPlNcJsHgIPghPK3vFEXs H4yfbCFaBCRiGMMoJ1efBs IdiQ6auTegZjdwkyI2WGRv cn19 Clinical Information (test code = [id number]) Shivani Schuler is a 47 year old female with IDA1. Gastric polyp x 6 r/o adenoma2.Duodenal Bx, r/o Celiac disease 3. Gastric Bx r/o HPylori Gross Description (test code = [id number]) u1wroTSdAUXchYOCCDV7BW HiDU0ebTxmoJa5zOedJMWj hxB5yRYyVFaak5ecCPW8j6 jfpnQVYsqpOMRgUO3vURwd AYRpQB5iUsTaSKAoGvSsHA BhcGVydzEyMjQwXHBhcGVy eKP6MDSxQN1lcwbrHUdsIG ugTBNotuF6VXVluOEkS6Bl VLRrAI3ebdsxBTH1NBVLDn cjCr0qvPFezPdkBuAyYuMh YXJzZXQwXGZuaWwgQXJpYW d0mW4KMwzaRZZ2HTDPIdkp FykgbGcmq6XexHPzZNCrBS xcaWQgNTEwMDAgXFxkYiBP NiPnRhS4Umu9NFC6SsB0QS s2FQZJFTChBcfgMUS0JrK9 QYt4NCFoCI8aQBkywMKdVT cqRrpvYThbI340TMeeJGGb T5LuB7OkKHjsHdEoDWtcSN YaYOZnDTlaNHTjB0ZOXWIo GTS0FdRjSYSdFQo0HTwoN8 LJRQBaHULsZcG6SZQbBpA1 XXy0JXCQHr5hEJsrDmDsLX u5AUT4GJh9MqHxOQCyDpVb KPHcEOCaUYnzrNSuUV0sjY vhPCHpCF1XKOJxIOjiPUYz DxZoJ1VIR6uJKU1iYHjcuO JjaFxmczIyXHBhciANClxw XJRuLS7YHSAjRUtsOIb0ik JbRWTgWxUzQCTdX83ih3QR w5BnWL3PFOl1fxScestabE 9cXLKkawBlWDbYjMXxoF1f wuZQWWybRQRiU5LwsvYsFV ezUYRtsq6fzDgmQSriInQy bGVkIHdpdGggdGhlIHBhdG pyhmUsR4F0uoZqOS7pRLJH ZJAlmP5bYKIeXLExd8QtsD TbmVftQ8PazBVrJcGrp5q5 dAZ5HFEuouXdEABfoEEsWU Tjlj1yWWzqJoSeG0D1DREt KKZic42qvPH4vyCtHtNxuB t0wNSaRKJ8NA9urOxoibBj e5a1uM6eRAXtz5C6HSAzx4 W1HPVkvlFoiHSuaHJrHITf UZ5uahOvYR76AXNoCHshLQ vbTYO7MEU8BEBopLHck5bo kcdaBw1pDDdhML1hJLmvRR 54CTImYFbhBSOtF1YeF7T3 VEaoWVYjXGSpjRSqdS8pci NhhdQgqMa8JMVzENP9uOHf oOkvXSExQbzbgJV5KOPjLx TeydFzj7CqlEc7tIFbFVmo PAOvlI2idU3yRJYaDSDsaj ZMVixvJYShEYmly3LlVLmy cGljWHNhMzAgDQpcZXBpY0 8um1MDg8Osh7nmnGozz1Dw cJSpLR0arBZsKU5Gg2dmUS CvfOJnUGC6NMdfb4czEMdm UAZ3KIWxSmDbDNEkVF2MEd RxBPtnWLy1WGggGAm5EXk2 OJ7NGiYiCORcLtq0KyJ8In CaGIt2ZEggSE8RUPG5JGHn VPWiFRtyMBY7TKDxMYj2ZU IgXFxzcyAzIFxcZmwgXFxu W65wkPQuRHoiTiCnXMzinN kaTSDsSOI8TG4GTXOjBhFa R8MCJ9jNBQ7pXjdvpuLtXE TqftJGAcblBYEeEV5FPPRi DSoeDCp9orCgQKUyKcDdBT UiK04tc2GLl3TdOY4TVWr7 prOzpvqisI6hBGBnejWea9 IzMFxlcGljWHNiMzAgDQpT oCWxdV9nfoBZCBtpUESnS8 MljaGrMIavRVBcmv6exZnx IGxhYmVsbGVkIHdpdGggdG mtDOPmkCrcvuHnE6F9zaGh UE4cWCHXCPFmuI2xLLMoDK DeAMLiZTFgaO3zLSO9y3Hc aeJnFKQBUOLaoPcgLN22dE BjZWxpYWMgZGlzZWFzZSBh ogIvviLpw60hfaKqo1CsYN 1yxLqgODhMLCkaLxMfLD0z IADkvpOxc0JkRB8oQHTjhX YzSHJdcnmziOHpBZs2fABo ZAAuJhQgcUfon9NoTOUsJE ciTN47tsJtGL1iGXsxZA9x GVewCB7wINRsXWUbPTRkTw QzqCJiFhFcqVMpXdFgZ78r EjEMuMYtc9ZxN6pcRI7beA SeRtmmqDPoFNYmjUjwx7Zu uUDjMJSao9DvjYWxGPciNL 7pIXX3Uf7ruNEjIMMgalI9 p6RpRSmvFNFzHxnrSDGtIR xta8ShSMWkdFREu8RpFS0O XHBhciANClxzYTMwXGVwaW WFy1KgKFIVRrvdaRhzNzNo vCWeRdU5ZBVezNWxDQP6KN 1epZhzEQMeZPv7DSibMQXy H0IzL7BuRRqtPzPoGSpuCX OsJYTaZOalVUBwU4HCUAJe YBF7KrMyDIEfIMc7FPdjZ3 OLSYPqFWWtPiA6YKW2KxB2 AOy5GWDSXl5uRPiwRaPqXM ZsTdA8WVi1CqOsPNQeQoWc FHLpJCEdQDivxWUrVZ3xkE fbCKKcWRWyJRU6FGPhhGZK n2HzRNDyBRtgGkEyIYCPBE MYPM4JToHOXFMwHpBxvQMu MD1WGXUfgfWyUMsolDwyhU 3fnNLvD9ouXfAmRznzuTae TmVzdERvYzEgDQpcbHRycG FyXGxpbjBccmluMFxzYjMw ZYMfiFOLl6UsORCXHyDjHK NpbWVuIEMgaXMgcmVjZWl2 CITysE3pUy7deQCruE4sfG SsIYitRPMkx9c9pIE7bZGe dYB2rZNzyWskZuRcMQ0rfS GdPPPKGB79iIMpujAmTZYw yG3eVBPxHIQsPQK5xnhiCY VYHGF3xPErx1F6MShrEJS3 pL7diOpbMuLhE7D2BYIwPT Tio97nuRM5hnItLoGxQVEc hz9saZ8cZVseswNfuWcwim Bog5M9SYWgy6J8DIZyztTy kKFcdPBjZUGtFuG0AIWyHg G6OBGeOOKksKIcXMPaLA1s VGhlIHNwZWNpbWVuIGlzIG SnuRTcneYlBDGray20B6kl NEEyiU5nz2itDwPbOQKtYJ MuyZWiaZJ1BAPfjR4dqR57 xoAlcnGRNF4uhJMrRP5WPX NiMFxlcGljWHNiMCANClxw ICCcBQipc5GuKAwkeYjwCL DzOuMxKDoIwFfmUKFXL3si zNOmBKjlEGVKRKyRI5NRYC 0BGPUwaQDJURO8LP3oUIzl IGKnD7CuJ3VcxoY9a7xxiF snu3DwfULlIY4ynIAuNF1V XHBhcmQgDQp9 Disclaimer (test code = [id number]) s6pagZIrZRVrg8wlXHMyuA FuZzEwMzNcZnRuYmpcdWMx BSjdkaJnFBdyj8OwM4JeFs AwMFxhbnNpXGRlZmxhbmcx GJOxGZD9fdZgLRTiGUgpOD WtQFtaGs9oaREvxVrtYbIo KMVvm0lgejEIRTxxErBfV3 79IREjMQegq2kcm0AvXJPc zBUcz3Z0XXHLpncqrLc7iO ggI12uj9S8BvuhJ7ikRLPx YAHmD2UtHZ4mFIClNqd0GG V4QBE0IZKrQHBpE3ZnTG0y SJTznYJzBDr1v6xhjNtsMT IsNVF0a3lxMJpjldUbLR1e zm4kaCx2g8tqzcIuMWZmAE CguBLKAMEhX2BxfWxaXf6s xNq6eToeTgkhJTA5Lno9OS 4tqv83cga1zUnwVJCbptga AbK2MJpdOTYjutctWAo2UZ eaBQXpjAC3WWKezIIoF8Uv RWHeOV0hhpi7BBS7PQurXF QlYdK9HCVjkLLsDQJwwEur DDdgv837GNT1GqLlQD4wV1 Eud6D1tV7grQEeKSIdpFTn RsLcDKAcjy5ihGMbUSaed1 QpXWA6coI7iFHdiFCgYWYp JV48Ifldo2ZgVhvdq7HhQ8 9nvNX0QZury8lsSU6nJoA6 zdQnWPceq5wqhP8dDrN7CD dsJU6oJK4fMGIclP5bdkbm XHBnYnJkcmhlYWRccGdicm LgEe0ybQimNGB0EAvsN9cd rI1iWsN2GXlpN3jqdO6dGI f3NVuewOB6GTMtaX8jBV4x zndjf2xfYYjoXRfmTHFshb W6lyB9IVHexWRzI8JvmX5g BNWrZF9pizqgm3tcNPS5WT swDEIrDOO6TgKpRSAkb0Ra vzt9BtBvg5DadWJcIQanH6 5hp287LYAramKgZ2xtfKXl dczwjOSxlwykNClhmcP7MP JbsxVbg7XnJICvGEY9XFjv XZrscHLwKXRsnDwxs8wpI3 RscGFyXHBsYWluXGYxXGZz MjBcbGFuZzEwMzNcaGljaF tuNWqyYlBeZHQmAKefW2oi HkEqK3PoATNdGqZlbUWjG7 ggVGhpcyByZXBvcnQgbWF5 WWomS4v7RKHzesOlsSk6fw HmDeUbZPAkITV5INawsHHz WZFdb7NcnwwboCSzDv8pkX ScCCZtaP4rAFRtVHHlLNjm KJ7pjQb5GMTAlSYtzENmNq FPHMMiGU34ngXfMDMHsgjk j4V4IUorKIOei9ZsqYJyN4 lvx9SyCEWjg69wRH6ik2A2 c0ktUVF8PJ9oo2WzRGEmiH TmjSByZDKrj6Aarbyiu4Xi ZWRttsIlx1ZmQZTidvFepZ GiEUFobdSfpk9jvfCbKLYe SQGkI8VculawqEqnhpHwJG Rcfl9igqAoMMD0WAQOYCYe FQZbz5WwxG3ceWQIXGR7tM Dvwq8cwwLOdENnEVXjka52 FLXwKR5qZ0ogMEXlXMKwtt OxpPYyp3JnAEXpcQW9hWTb JB0RFbCBe84lBLZsTZZNso FvAQBzhTijeNE3mnY6wC4i IChGREEpLlx+IFRoZSBGRE WlRW8vygBvi9UxbsSepWqv OUTcfPBqi1AnuQBux7QspV zec2IoaZDkhDSaBL5gLFWo clxwYXIgVVRNQiBMYWJvcm B2s8KuNIOmRQMnSHX4iSjp gmt7WJQacD0cNATeI6rfky ouDNmtBXZlc1HcnW3nsSNU eXIvs5HgeYKcuZRHfMKlFV 6soxPuJRgGGEuSNWE7kbIu TBBlc8NcHFlcG3bhC86lpQ zbqLn2nVF8LWG1gM5tApo+ IFxwYXJccGFyIEFwcHJvcH PnCMLytIqoreLrU2ItvaPz mX2bwMPcigTnTB6yDK2qE2 W0pPYfEZVqmbFls5qsNYpm dmUgYmVlbiByZXZpZXdlZC Gup7HnRGtfYBT4GNfwqwHr bmNsdWRpbmcgSCZFLCBTcG RnbJYqXXI2KLlodxFeucDp KK6qtQ8hmNvxeF2hfAErkL E7kjrwYSLbCQSsnSmdEETx RT2vtVcqhF5cIqMhKiSjQV nbQY4lCYKtH0smcQNkTYNf JATdE6jqUnVxeP8mtTjiRF xjZjJcZnMyMFxwYXJccGFy XHBsYWluXGYxXGZzMjBcbG FuZzEwMzNcaGljaFxmMVxk DiXkVNLzRSteE4bbFwGpN1 ZlIBCyYdBhyAMmD5zjHMnh DGN7AFSiNX2muLIfBP95xM Xbo5mwDOgsyZzmui5dH96a zZWoAApicRncLRZlk96ao1 CmRAQfimZptq0wWAIdfiZ2 xD9tMCVxaGykSGUvhWYgIV Btf0VgQAfinUVrcgMxBWzk SNQcXCWtwGEwusY9udJkal DjucRcIIVrtHcuTRWpl6Fc RIEgINzqi3Ozdy8fzOHaIS PdlnUEqUhsmFVxnS2pJ7Mx LEKjHXTnrx8iACEbhB8zSF und1AwbgsdQMKpIOLiXUUb xdRxux4qYMAjcIMCHM6ERK bgwAHni4XueuSgX6kVYCQ0 NUQwNjYwMjgxKSBleGNlcH ClUJOssa60ACKmaX6fbUfc YCQhqA7ydT3btXbgjZ1wGs UhGfZhFWdkNO0iXUOpO2zf xJYpSPIxMSHpC1ouPmRifK 9jaFxmMVxjZjJcZnMyMFxw YXJ9fQ== Embedded Images (test code = [id number]) [facility] [id number] 19:23:05* Test Item Value Reference Range Interpretation Comme nts Case Report (test code = [id number]) Surgical Pathology ?Case: [id number] ? Authorizing Provider: ?Dominic Keita MD ? [...] HPylori ? Final Diagnosis (test code = [id number]) a3uduZVwBVEzt2kgCJVceX FuZzEwMzNcZnRuYmpcdWMx HRsglvNiBUnqnLwzPFG1CF ItSZ8foQmfdOv1bKfgPFVx yaL7zMWtQMpnu2icSRM2t8 fsrtnhCHWrLHyxEo5hcNOq nXugDpZrZFXnYGj8lN73NF KlnK4kxTPnWQq2MCGuiBAe avQhDhKgAVYvvGLboBB0DC FeJG3gogdlCZmmKAvyTPSj xaN4PLVneDByN6OwVRHxGY 8jvnnjCBP9AEwcEHBrRRD6 CrNxBIXiv5Begfw3CvZiyW FyZFxwbGFpblxmczIwXHBh coMUHjQYRB4CDRUZNWACR5 qATLMEMS6TLHAWMlxnbYOf PPSwJSJtDFIRRY4WJNYtW0 mNUnLlZT6KGXWnQWOnhDAq RGKxwdRXUwFGRS5JSE1PWA wgQklPUFNZOlxwYXIgICAg YHUxOMzYL2GCTNKqEJCXG0 OIFNfNEWctOk6gURMFUI5U P0mNV3ZJPNLQGX2VOVxkFR OiEPEcDEVtGK4WBAduVISA HC7WLZLIKHQHKVtOWMXIXE ESZXnWJYBVX7INTMbEQSWw sxsyCTMuHc7hR2ALYFTBQZ wgQklPUFNZOlxwYXIgICAg PLMsHAHEE6SGTyUIXV6IE8 9XWVQQIPWFLX0AHYUQRIqD HF8XVPSGOLEPWPMWX6DrnP FyICAgICAgLSBOTyBFVklE VJ2BIRDGMdIKNLgEWOXhVF lTRUFTRVxwYXIgICAgICAt OF5ISVblAUXLTJ8PLNUVBz dBTklTTVMgSURFTlRJRklF LFTKNGUCFC2SIe0KRDAQRw xwYXJccGFyfXtccnRmMVxz j3ElE6EpJnDwAYnbkrOwEJ SvYljonsrfYQIpWEM4wiVx NAIrLIgsGBGoWWxnEt2oaK HtcCgePrDmXOQpj3bywvZQ WIsgVbJrA956EFKeNKrtl8 vnb3FlPOKjaPXyc6B1BMIH ncawaZo5c5gtWfIoMcX8hL RsCDfeG4vdcoFdaOGbP7Oh tIDpkWy9wZxkF08iz2R9Oc onS8miIJEnVTRtT4PvAP5a GYLzRey3VAZ2YQA2YPSzJK GrO2EeCE6wVYKofYBvLJr3 d9lycWmjKNAfWLX9t8lcDR nppfV0TE4ydy8zmCi1k5hw czEgRGVmYXVsdCBQYXJhZ3 RuwWgeAj1siPi6rJsbPioy FYS0Yaq3MH4xjo90xdl7jK cpSEOpcuefThP9SHdqAGZb ezjsCDe9GLmrTLHwtVL2HV SozCQuM0KwZJJnRA9voqb3 BAL8MLznMTGwOrV3KWBpyH LwXSMtzHxmRMqym410VBT8 FdZrBZ0yZ0Lbs7L1vL5yfE WvMNUfjWUxBgBtRSEaej7c lIHsUNvgb0DuXTK1vkZ5bJ CpgOLcDAAbYT93Ccucd5Ra MbhwSFN3HLDqqnBri6Opy8 sgNgNbgnSwV7geD8QdJNEx YMXhBPGeJbJwejQne1Hkz4 QfwJPpaLa0s3ozEZNyVESp uKfdj7glNKO5ZYYaA9K4iR Wod8ouRFdpHJUhkMS4hnS6 EWKffFKkA1VeqS3vLGOuYK 5yrqs3e6csHXH0HWfwDCXw GfT3ifM8UWDldRRdLTJpvN xdZSkkl850URV3VrGnTXHx z0VdN0OzwXrnN55cbWxzD8 6dSZBniGbggW1qxWcviW7m ZjBcZnMyNFxxbFxwbGFpbl xmMVxmczIwXGxhbmcxMDMz UHtlW2bqHiJwANPxqEqtPY bom6KcEPUyZABoKbcitbCj XHBhciBJIGhhdmUgcGVyc2 9uYWxseSByZXZpZXdlZCBh nVeoj9NvS8srQB5oQ1JjzW BojsJxamMgYQqoLONoo9n8 xVRfsCvml6YvxZMxZI67ua YnGZViGKN4ZENwy7ufFD16 bjjlOdUypS13lkKmsvXuBX Wvm8biB6soeVHqy0Wrw9Xb kxByEEswg8BjCO6pxJVeog rcuNE0ZARpxQPyqzEslbB3 pCfoKZMupV7erC5qsEsajR 2cUlZaXiXzNGkuUQ4bVOUc G5pfrLEnGXOqNQXaJ7alTr ShmA8uxFwtFnqshtM2DUJu cn19 Clinical Information (test code = [id number]) Shivani Schuler is a 47 year old female with IDA1. Gastric polyp x 6 r/o adenoma2.Duodenal Bx, r/o Celiac disease 3. Gastric Bx r/o HPylori Gross Description (test code = [id number]) i6zkzMHvYODjhJOSJAC0YR LwKM3zoSldsOb4mEagHBYo ggO5aRUzJQgwl5glNHN3p9 ybddIMGyqtWWXpII2sDEbm LAPqQJ5pNxGpDRBdTzEoFM BhcGVydzEyMjQwXHBhcGVy bXZ7RISxTM9ztbqwAVjuWO udDIPmhtZ2UAYjfGAiR3Al PISgDR6jmkddHUH7LCZCEp tfUt0swXKycPpiLfGiEvIu YXJzZXQwXGZuaWwgQXJpYW i3tA7CQksoEKU3FUBROdsd EhtphDqrj3TnhTKfJMQuSH xcaWQgNTEwMDAgXFxkYiBP HzQsLzG2Kbz5MIK1YhT3PJ t7NESATRHaIjnhRFW8HzL8 PNy2RIMhLI5yBOrygYBiIL isRjkxDTmjG338MMuuQRPh I3TbP5OnRMfbNbVhKTthUU VcVBCxWRpmOEYeV9IZQSAt MBF0XvAvGYGuHNe9ZOwpX7 EHRSVmSEToUoK6MVJcMzU2 RNd4OWGADy8fLMqcJoTbSZ t6LTJ6YCi4FbXbTNEpLmRl WUSbRSIrAWmdaYJiNB3ycB ywZGDpKR3KVFEaCLrvAPGe NfZbU8LMF7tTWZ9jQOznnL JjaFxmczIyXHBhciANClxw FQKnAU8AKOLdBPbiDVq0ch AbGHYnClYvPNKrH27na5FU g7WhDL1SMXw2ocAotzyhzO 2yTHLxcrBqNKeFnSXcsM6t ziJMXMplDQRnM8CfweYyKW oaVZTolv0knVafXMpvJyZz bGVkIHdpdGggdGhlIHBhdG ewyuRzZ5F4ixNpWD6sPPXH TOAadL1rYVMxIRIxz4VcaH GrwGtdV4FijGEaZlVls4d3 hOI6YZAwywUnBJLamCFgHO Mlvw3tBUarXnWwM6X3URJy JXEip42xpMH0ahQkZeFxeO i1aROkMNT8XT8ijQhohyNa n2g2uU1vFAJpz5L8OIFvn8 X4QTUvfuNroBAepBHnDWRj CR4ptoQwRG54TPRcNFkyFR ypQFY6BWB8VFYmaMBnv0zs ektfQz9uNDfaBI8cWTyrTU 32LIHkDGttJBSyJ2BkV3W9 ASgwWSSuVUEhfYSngA2aax ZhmnTtdVi1QYZyBLH2tKPe nTpjEESzHdkteMN0FCZuUh BujmBut1PajBc1dGOdPGna OLShlK3etA2aIOFjWRDtxb FSPunrGHDrVXdkb7LyFBtf cGljWHNhMzAgDQpcZXBpY0 3eu9SMx8Chc2vyxLowq5Nx zMViWN7vjZBaEF6Bd5jpUC LuyXGqHKB3ZRbkb0ymUKok YPV0GCUyUaTsRYEzNF8ZSq SiVRfpMWv7ERhnFMn6VNu0 ZF0KZxKtVAPwHgv6JeA8Nf TpMDd8MVojMF8DVXN5XCCr LBAdXYtqRXW1QFKgGEa1AS IgXFxzcyAzIFxcZmwgXFxu R69roJLzHZfvTcHmMKptxI zzFJSeGFJ3HW1RVJAmSwPz M5PMJ9oCDM4kEaxyvwDyQC IzkcZQCstdTSUbLB8MBIUe MGtuIPk4ydVhCNNrMoBbGA EzT09ds4SWb1CaOY1ESOa6 vjSojjbzuK4lEDUtjnKqp9 IzMFxlcGljWHNiMzAgDQpT qBTlbP1wamKUNCbvKATlB0 QeajIyVMvxIIKagf8ioJnn IGxhYmVsbGVkIHdpdGggdG udILCrpMhldmApM9I4jzMx AF3hFLWHLXNajL6uVWGqJC WwSJPlLCNbfZ8uCAR9j9Xi vgMcXSCLQBUyuEcvZS71cM BjZWxpYWMgZGlzZWFzZSBh mtGgvkBjn45cwyRhh2LjPS 9qyIrxYUvIYNjpVwXsJN6c VWFnumKqf1NmVU2wFQOofU IpGGAxjgnzlHUuAAo1tKBr LGUeMsRdxMwbk3AiJWKeSD psOA62ktEpVX5kFOfbWY3m EMhaEC3lEYQtACVuZYApEx HhyJNyRgCkkNFiIxJwP66i YcNWjEEcc9TuA6gyHY9hpK BnVtiuvXPjFCXmbXeqd1Nc pEEnAGKnx1QmaNYmXAxuOL 7yPCW9Gx3rgFFcUQAkbyB6 d2CnRVntUYOoHvojSLXcZV yxg8FbLIGemKSMg1BbQX6D XHBhciANClxzYTMwXGVwaW WPh7RdZRQDVcydzTghVqKe fUIfIxV5MYNjaECuUKL9RP 7cxTqcHIVfBJs3FZtgKHKu H2RfI1NoBWpoOnWrZArwVF RpSEVnXYguAKTpL3JYAWCu HGF2AkTcKQXaQWd0VIzbQ1 CJHMKpPVMrDlM7QSQ4JrC3 XFq7LOJFHe1lDKozViPvCT JeUqN4SLs8UhBvHBTrGuLb RUMbEZDtCTfllMRxEK8tyJ wfXXPjWYVqLBI6QVUmsZLL d4MmPGCsBVyyMtTsFWCTDV UZDS9WVbWODWJtJtSgfZPn UN0UNJZnbxAlJAyapWcdyU 1akNHpP4sbMvImOosqcIvz TmVzdERvYzEgDQpcbHRycG FyXGxpbjBccmluMFxzYjMw FLFmtWJMm1JiBOWZUiHvRQ NpbWVuIEMgaXMgcmVjZWl2 FHHeeY4cEo2ziQPpaA2isU ZtCGagQVTcl3t5rZR0hBCw nAG1oWTrbKroYgCjWF2dsE OsBMGXMF51lUOvxdEcGACs nE2eHFVdTZCrERP0wwokWO JITJA4bPAaa4B5NChfQOU1 eI3txIhjQrZzE3G6IJUsQU Rvy20efLQ8zrDfMeDsCNYo gf3huZ3qAFmlznDqgPdhbe Atn9U7THPzy3I2SYMzhqIc bILcfOLhKMAlDoH0VNCtCy H9CZRkWLCzhWDeTTQsDO8m VGhlIHNwZWNpbWVuIGlzIG JahMTfuuGyOMOibc53S8by RYUvzD6ln2hqGfKyPAHiGJ XqrDKwrEI0HRWphH8lwR75 nnLjhnZUPX2acYEuBR9AJL NiMFxlcGljWHNiMCANClxw VYMyFHerm6HqNNvuiHaiYY AaCdJrVSwBzFbkUEXHY9ot yKZtCOmrZGUQMSrWE0TPYV 3YWIAecAWUZRV1DC0sYPpi DSAhA9LkS5YvtpS7b5aloV uwg5FepZDqWO2amKZaZX0O XHBhcmQgDQp9 Disclaimer (test code = [id number]) e4nrkBLiVVLfw3xjGLDqbA FuZzEwMzNcZnRuYmpcdWMx MMduhzMcDDumt2FeU3LgXi AwMFxhbnNpXGRlZmxhbmcx GBBnHSR1sjYrCQTrXIhsEN SbPJpxFh0tbPAtqOkjDzQc EKSrm3onscIQVPbuXlLgT9 17DIGlEXplv3lit5XuLQCd iQQkz3G2VIBIdjkwvGp5aY xvL82ia0F3ObtmI4kwNKOu YKAdS6KjNU3sINDwBfy4JZ I0DJQ9KNUkRQAkG9KcUS9i HXPohEInIGt5l8xftIzgMV ZiDUF4u3clLHlsvxNtKG6q ma1haJs5r4ynbrPlTIWqGY ShsWJJVGWfX8UsfAksGj2g aKj1vCclOqqoXQU2Rfa5RN 4hon78ano8dRduJERegugc HzZ8DJvzHHDqzmppHMy8GE wlBGHzgOK5BUWapGNuR3Jb RNTnQB3psbf3WSU0RBcpHU WzDlD3JIInqXHyQSQytSmi HZyuk267SND6HmEiWW8wG4 Zcw2H9yT4hzCExAEZtyTPc XeTaSKWjxh4ujKSaAEzgj6 TcCSL1ajL5gZVqoNDfRVOi UR22Ojatm8UcEatry9SqN2 0elLF1NTgcd5mqCI9aGjQ2 mdTzSJgdo0bunG7cJmV4YV brPG2nYD3iINVdhG4ftmru XHBnYnJkcmhlYWRccGdicm MjYy7ugWqnPIY3MEpoO1no lH8cJkB2XXceU3uqmL1vVZ c8DGffrZF8HWQlmS0zZA5u snpdg2csHEwsRLijDSLpaq H8ybL0AXFwwQSuA3YdmH9d FFTlXO2ogyqot7unYEH5RC znOKYsFIJ5OlBzAQMhx4Qh sfk7LoBjz5XoxNZcFJttI0 6ta726BNNcpxCaQ0iblSZs vhujqBDcsiwkRGyjwzL3GH GwfcFck1BuANIuNNN6WNep XNldiDYeTBQkcYcag1wyR8 RscGFyXHBsYWluXGYxXGZz MjBcbGFuZzEwMzNcaGljaF yhUPhmVlQeSXCnKYpmU9ia XkSvK3LuRDDnLjDaqIYbO1 ggVGhpcyByZXBvcnQgbWF5 OYajY7u1MMDxxwZywOn6wn VbKpWtRUMrZIZ8MGbrzLCl CUBth0OamqgfkNTkLo3msR UlYFKxnX4kPZPlQGHhORma RT2alIa4QZGEvUAdqGNdXj JPUXSuNE75omSlGXMGfien o7H4KKdlVYNea7TtrRNzK0 rkz9TmZAXki85iJR1yq2A7 z5imSJQ4AL1rv6ZkBGMcbM OdkYNfYIDsg7Rbfrukm0Rh ZLJfotTtn6EiNDIdwuNmmX FsRAHpozDrvk2nybRiBZTp EBTxM0JzjevovIfjroAaBF Aadg9vrjAnUUR6EPSTHGKb NBUpm6SbvE4mmHDNHCU7kH Ewve3nwvDUfXIxEPPian48 JFTeWL0hS5xjISOwPRQwzf NdhJYfx0ViAHGcxLZ4zJGw ZR5GHrRCs77nQBSbDIPQnx WqKLOnxKppnPS7jkI4pX5s IChGREEpLlx+IFRoZSBGRE VbQK0dvtPqu9QzvzDkjPxw EKSpwNBep0AxsVOcu8NuoF fpw4WdaYEubPHcMY9mTDUm clxwYXIgVVRNQiBMYWJvcm D0t0SbMDMlRAYhVYG1jHmg dnz7MUZbsK3gXOVmI8iybn ssYMjlORLpn0RdwX9ilGXI xCIev0IadZXjpBXEpBPqJA 6vrtKgMVoGBCcHAFB6elYo ZJPyw5VsSOjjI2xhZ33ojN lbgLa5dYI9SEU9qD0eMfc+ IFxwYXJccGFyIEFwcHJvcH LwBCEkoBrdufBeO7WkulPn aW1dyGFlrfBoDD2lAE7aC0 F8rBVuAJNenpGsv2cwPNuj dmUgYmVlbiByZXZpZXdlZC Jib7PiUDolXWE2OKcmrpYp bmNsdWRpbmcgSCZFLCBTcG JepZHiUVX6SFzwspKfziEx NZ0hfY9trKwgkF7msDQqsZ L8igofUYJsINBkqMsxVURi HF0fqOzqiO3vDnGpCzWpJN piVK6kYNMaT6ajhOWtNBGb YYRjU9psQsWrwE5rvJcgGM xjZjJcZnMyMFxwYXJccGFy XHBsYWluXGYxXGZzMjBcbG FuZzEwMzNcaGljaFxmMVxk TcGnDZPqTEhmV6rjYrTqE4 YdFJKsPqDiuNDlN1liCJkz ZDE2BCLbPO9jeMKwBD53tN Rgu8euNJzboDhffj8cL36v uDYtEHxqvTjxKLRdo13tr8 VtWNEnuhRtzw1fPXZywdQ8 kY3gUPZopSbvVNBbxEWsMZ Qea4DnKDkuaCKxyoAgJZim EMMvCHWmtKZawhG9buYpgj HbawWsCNWpmCzqTYUzm2Qn FYInFQjeq4Obag2prMGfZS GowkEHzRpejIYruC9qE3Oq RKDzRZBudi1pZTEbcR7lIV utu7PsutioZIGaBLLnYSVj ntIhrx9yLVGkuVCELG6RJH bxkGFwq1NplhPmM3fRDGE7 NUQwNjYwMjgxKSBleGNlcH JxDDNjyu95JYXpfD8hrPgm ULWaxS4riO1kvGcinB7nRl TlTwIqZBxaOM8xREYqZ9dp yWQoSXTxWSOoK3qqDmAjrM 9jaFxmMVxjZjJcZnMyMFxw YXJ9fQ== Embedded Images (test code = [id number]) [facility] [id number] 19:23:05* Test Item Value Reference Range Interpretation Comme nts Case Report (test code = [id number]) Surgical Pathology ?Case: [id number] ? Authorizing Provider: ?Dominic Keita MD ? [...] HPylori ? Final Diagnosis (test code = [id number]) g3fbvDPgNIDgl0npAYLcyE FuZzEwMzNcZnRuYmpcdWMx SDkqjmWhMHysqRpjUTY2SJ CdVT2gsNnnzTo6uNgxULWi vyP1kFDbZIios5npMEO1t9 jxyksnXYWfOOzcYd3ziZSl uEnhCoNfOFNhNOi1oZ73DX MvnF0gkOTlSZa7CKWhlXKu clSwToQfWGJcqSVmjPS9OZ ZxRO9hbiupLBvrBTtcBRVp biI5QLTrbUYeZ6YnKPYsLG 3rxvqdHSU1YWibPPLfDVE4 KtKlPSSji6Nlssj0MxDvhW FyZFxwbGFpblxmczIwXHBh ssOJRqIVYE6AANXEOWLSR4 cCBMPTXF5CKSVVUlipiMQe LNPwSSDkKTJQNN9IVORnR7 vLIqMrAL2BAFVpMDVpqQVj BFBctrNRAmKIGN0BPC4TVE wgQklPUFNZOlxwYXIgICAg KKNgOKdPQ4XPCGLbVJJGP5 RBWYcDTSdtUv5bDNPFZA6T O5wYE5QCIVCDHE5WTRwwXE RhPNZpNINdUJ6LGDtjJYIN JD4HEGAMDHFCFMcBZURRHT SJKOeWVFSUJ2DJQFqHAOIh gfpmBKAkFx9nG5FFYYNBIB wgQklPUFNZOlxwYXIgICAg HSEpIEEQT8ZCIvAYDW5UH9 1LITPXILRLWN7DXLEBURqV QS5QFYCLKVTYDXDEW7SgfJ FyICAgICAgLSBOTyBFVklE PE4DHCWOFiVPPTjIZKHrQQ lTRUFTRVxwYXIgICAgICAt BE6LXMaaZELHRR1WWUATJx dBTklTTVMgSURFTlRJRklF UKVJWGNVEZ9ZHt8VPWDROq xwYXJccGFyfXtccnRmMVxz x9JqJ1JaCbKlSZrutbVhIA AdWlkzsbcxBBAgWAB3jnCj YLDaAUfiOXIdRKpsOe6ypP QlpVquDnWxCJYxs1rqhnMO AOzpRaUvV248SMDnFEzin9 erl5YsNGFxxPItf1A3WIJZ pfsqrTm5p4xuRpFkTzJ3vH IaTXgkL2gbkzDhdRAoR6Je mASoiNw1xVnqI62cl8S4Lh qkT2kxEQQcUTJuG8AhJM0c EYKiLvz7ILL9EFC4CKCfKH AoG6DoPJ7sZSAvzESgXVr0 l3yxzHvaFZMnITR6h2luWZ kuxmC9PE9njr5spBu1x5ky czEgRGVmYXVsdCBQYXJhZ3 JovGllJp8lhJk5bXnfXmay JWL3Zfv9AD1xvt18sic1oI zcILIgjazyQxW5IDfaVPQo tdwfSMq9SCbsOHMdtGN7ZB AecINyM1MoTHCvCZ3gppv1 RIM5AFtaNLIuVsQ9VLRyeM LeKYUpyUaxPKkvm239AVF2 LqKgCM5zR1Hfl7F8oY0hlM JgDNMxeHDoUlCjXMPhri3g kVMnUQmeo9ZnZMF8lkA6eA KxeDIcXPLnFH59Xjtek1Fh FvbdVLB1UWAvvdKyp3Ggw8 rtAzYreqGpZ0aaN7YbZXZu OINnSHZnEbVolvDvy7Osx9 KlsTUvqIj8v9vgWGBpPTKn jSrkg6cjHYK9ATEcK9S6aK Xut7ivQCstJOVuyTV3ovI9 QNWalIWxL7FncM5rBSMaJO 8zyus4w1waPSD6RHrmNKJz KyC2lgK6SSIrpNIvDLThdP atMMidp179TGR6JvHtJHDk u2CvS5TrdHxnO86bfTiaL7 1eRDYygYuptK5kfGnkoD2n ZjBcZnMyNFxxbFxwbGFpbl xmMVxmczIwXGxhbmcxMDMz XSpvQ4ryQgViIBYarNpzII ppd2MbKSHyJERmKzrxukPg XHBhciBJIGhhdmUgcGVyc2 9uYWxseSByZXZpZXdlZCBh cDpyv1IbZ6atGU0hZ1AecT SjnzWwoeJdFFpiJUPlz1v6 oJEmwOels0EylTXgWC20yu XoCSOsVGF0DIQbz7bsGV01 rerzVgJyjK35rcZiwdDlGZ Mlc4jzZ1tmhSMfx6Qmp7Dg qfDjVNdmp2VtGG7qpOZsca kagTJ1QWRzxYXtekJbggD0 fZwtZKPtzP0ppA3vdWzmuL 4pZeRsYwXgPFwxKT7uVGLp H0irxUXzJKPwVAAlF7fvWl MizE1ccKeoMsslusB7XEPb cn19 Clinical Information (test code = [id number]) Shivani Schuler is a 47 year old female with IDA1. Gastric polyp x 6 r/o adenoma2.Duodenal Bx, r/o Celiac disease 3. Gastric Bx r/o HPylori Gross Description (test code = [id number]) h7lasYAuDYXbxNYNCSW8MG XpPF8viHimfOz7dPwtZQBs vqC8sSLiYUxei2lfZWM6s3 oipxTAMmnoGUKfBU3fOPuf AZEhSZ3iXuIxXJBeZaKkEX BhcGVydzEyMjQwXHBhcGVy iHB6CKJdOF8skkybOIfkLU heMHUjbaY7JNMycOYxX5Oc YANxVN3eciqpTCM7RYROVa frCd0pdUOfhVucSjZvOnAi YXJzZXQwXGZuaWwgQXJpYW m3kN5KTczlAGJ4NFSHQccl NzuiiQxyd4KdlESzTHSuYM xcaWQgNTEwMDAgXFxkYiBP TwHxNdC6Dxz1HTN0XvG7EM r2JHOIQIAjYtywYRP6SsW3 GCc1ZTIyIN7mWDxviUWpQS xyKxsdBCnqE739GDffWFDh T2OfG6XeUXegTkLiGFpnVQ NcJCYfQPqaUGAjL6KUTFFy JEU6JlEnRYTeSXo0YGsqG2 EAUXLsFCUpBfD3HMIpWnF6 YIp3MNBDSn4sWOgpJaZkAQ t4TCH6LXk5FnOpZMMzNxOh CYUcBNLtMBrqmRQsPJ9jyW yxSNRdVN8WUZStZWghSVZz GrYqS0KMI8nUBO9sNMvbnX JjaFxmczIyXHBhciANClxw IESvGS5MLJXzGAodFKg9tp XrEMZxFyLxOLXpK69bw0AK s7NdHR6HXHc9tdZuajdhlE 4qTTYlehPiEOfAjKIbhC8v sdJEUEylYFWvV4RaymMbNQ goEYQvff5ehQstIWmvTjOh bGVkIHdpdGggdGhlIHBhdG crxlLyN6Q6ynNhQZ3sEPCH XJYeuV0wQIGzVLIft7BoyI PjpAcoZ5CmaZDgToOkg1v3 dBU0OVJlmeYzQIThnNZnFB Zzsx5jUEwtHsNbJ4L2RFTg WCNjb89ghEZ9cpXvOiFkjK j9yIInSAE8IH1itBjztlWt p4l1bA2nFAAvo2A9RNSno6 S0RRGcwzJoxVCvgJMnUCIl SX3qysAsFT98ZWFpSMkxVH vvPXL3ZDB0SFWjdTMod4nc frclSa1fZTmuCG8vXCjzGJ 64NIEuGHvmERKhP9ReZ5C4 GErwKAYhMOHohLToiX9kzw SlrgKlbJt4NWMsXGF1oWOq bIctRGIzAgzxiRE5WTIjKb ChwdFsf3WmfQo5kETgFGoj TDUrqS3dbH8cMELnZPAaqb PPItlrSDRsVNmmn0QyURnk cGljWHNhMzAgDQpcZXBpY0 1qg9YVk8Qkv3mloVnuj7Ok vOTqKT4deLWnWJ4Di2jfFN JhzWXpDON4YHkww4cqITmw LWA6QBGzNuAkWTQfJT0VEz UlLIknYGh7VSzbIIv8JOt1 YF8HYsQdKCJaAhw2RzK1Nr MeCYe7IEotXB2HJYL2HOPy AIUuCAifLCH4OXTrUPy7AH IgXFxzcyAzIFxcZmwgXFxu L51otZIlEGklGwKyUGreoS ewIEBxEDB5FD1ZATCgWaPz F0AWG2yOHG5jYasrksFsFL VmqrPDKzeeECTnUE2UIJLz DUqvDKh2wgGaGDQgNgBuNY IhG86md8LZi6GtQB5BSFl1 ztWsflzfuY4mLZLlglSto1 IzMFxlcGljWHNiMzAgDQpT hTCloJ1grrDGPStgWUEoD8 QqwoRiTCwqJMBgjm0efCtb IGxhYmVsbGVkIHdpdGggdG gsFDLcdRybmvYwZ9D0rxMy KC3wXKJTLWJwnR8tNHBpCP HmVZZbUGTadW3wOCR6z4Qn niNzYOEQOZCmlGrkNZ33wK BjZWxpYWMgZGlzZWFzZSBh scQndzZtc91dxmLwu8FoGZ 9ojSuqXZjLJWryZcPeWJ0t LZAauyMdx2JtRD8aBSWzbJ OpNXJmvwslcVIwLTh7gHGu STNgVkNetBdzy9AdIPBwBA ymDY89nyMnEA6uVDjfAN7h IYwoWA4sXPMdRMIgYMPeKt PvhUAgWxJczWXjRcKfY56x PlLQhYDzt4SgY9otGC3peZ MgQvsdzORpGERqrUppz2Fb lJSgNTJxq6WayEKvGRzqIO 2sQGS1Fi2gzUHbKEIvysP5 h9JhCGtbUKDlNecuFZGaSU cnk5BzQRSaoFCLr8HvQZ5Z XHBhciANClxzYTMwXGVwaW QVw9OgJZZZOrwesNqqVcUf pRYmCpI1HMBbbDAuMJI9YM 9xuIdeSVBzYIp9ZJqgSGYu Z8IzI0FaCLicGkLiQOmbFW NrOCNjBRgsQGFyC4AOOIOq HPK4TnAzWGBfSCy4EHuuM2 MOXVXoWDCmDsS8EFB9MxR4 FCi7ZIRHPh8kBJaaRuVfII XgTsX1EPi9DpAoPCBqFnQw NRGvBTKcNAobsHNoPF4mlZ wlQDQwWMTrFPA9JOBdbQBN a5QgBDOjYFqfVqJoCVCXYQ AJSD6FJiJINKWbWbIguMHb GI7YWXQswcUrWOaccGnpcY 1fsIMgO5jvZwNvFhjmbRhw TmVzdERvYzEgDQpcbHRycG FyXGxpbjBccmluMFxzYjMw MGVctEKVr9HaLMCSEfSbAD NpbWVuIEMgaXMgcmVjZWl2 OBTlwZ9nCq9hwLNkaN9mlO GmWFbbWQVko8a6eEG9sKYu rPR1hQWzgKjlMkIrZI3ddJ QePMKCLR95lXMnfkMkBMZj uA6cMXZrVHGkPPP8lrcrNC TNUMW3vNSrg1H5ESngRVG0 bR1ubPmbGsTfV2F6YEXvUY Xri68zfQY5xrDjHpIqCQOt ax6llB3bWTvmyhQlrVhkmo Pqd4O0HUEno7K0WIZoyxXv vHBayJXjIBArMxA7VALbBb E9JROmNZPqbVMoGTQoGE6k VGhlIHNwZWNpbWVuIGlzIG CwcHKnnbUuCURtqp45Y7sg QCFjmI6bw4dzJoHgCHXwEJ WkiPQxnIX7DPDlxW0mjW59 yqAndxGKWD7ekSDsNQ1WLG NiMFxlcGljWHNiMCANClxw JTSoBGfmi5FyDVhwvOghCE OySdFeDQfFaThdFNNIS1pv zOAuQSyhMJCDTCwDD6OXOT 6FGNHtrKDNSIX3IW0bGOsv IGAoS7BsE7XyapF3q1atxA lfa9GsqDXmBG4woFYmUE0R XHBhcmQgDQp9 Disclaimer (test code = [id number]) v1lyxNCwGEHyg2ltKLOvhR FuZzEwMzNcZnRuYmpcdWMx WPwvrwWcHIrpa6KlV1DdRc AwMFxhbnNpXGRlZmxhbmcx WOXbCRW7ncYeMBAyYZmpQM DuFHuqQx4mxVCtnIinEgEi TBZwg7qqrmXJQPvsOsZrZ3 77XQUtANlub1hxj1PpBOYo uVXbo5B6OSGCpyekdSx2aG oyR92mu5E7XtiqX7igUQXp PNTaO5XiWE7oOORzRnf0MG P5IAA3GXTiRRAvX5RhWP4y GHKcqJAkQUb5w9iyhLyqPZ IkGUY6v6esKIhngiTsSU0o xs1yaRf7l0qmemMzHZZsRC UvlHKWKVEiL4InzKnoCf4h eTu9bWxcNmqyYWT6Ibv6WU 4idt81ydo6kXydXEYwaudj TvK9XGijGFAnaigfXBx8OP gmJERkmWV7NSBoiRHtW6Sf KWKxQC0awcb7FXW3AAcwEU CiJgO2QJXylCKiCSPdiPhv TAfqi249GNZ2OnJjHX3iQ6 Bbg0S1qU2ldSEfARLcuMZn KsFlPHRpzx5nhTVwQFbzf8 DeQAV5jrR3tRAaxTKjULJt FC47Mgyfj0IgEqgwd1QtE2 7lfRC6GSmdr5olQJ3oUqZ4 qyVtNFjiu8akqW3kJeE5KD ajSL7aII5wNFMdvW1vuykz XHBnYnJkcmhlYWRccGdicm HwIi8svKljKDG4VCkxT7ks sP1eAfT0MMinD3gsiM0wVB p6QHgofTF8PBGhrQ0lEI4r zbmmo6ieXAfsONrkMSStgp Y4hwO5TXHptRVpP7GweY1a MXBzLU3nyylez8qfLCT5PU hsGWCvINW9RfKnZRAzr6Ss vfb2ZdOgj2DxhDOfRSfrR4 9vm660WDSskgTlM8kkaPBx lwlpfIBihlrnOQjycqM6RC RmdfGub6SzOIOkLMS0DDxf QNncgNQyRRRwjGuht0jfQ1 RscGFyXHBsYWluXGYxXGZz MjBcbGFuZzEwMzNcaGljaF cjRNdwIhBpTVFtITsiO6vl YlHzP3IgDBDjAdVhiCQeO9 ggVGhpcyByZXBvcnQgbWF5 MVltJ3f0AKWftrNbtLf6fb ZzKnKwLHXpWDI7HMugkPDn VFEmp6PfhprhvKBdAf0fsE PiTZHsyD0pVOVvMDUfPNcs XH4ptRv0GBBViCGwyEGjPr VNDMXiBN11tzEkHLHVxgud y3Y8NAbpUIWfn6VznTHiK8 nza5IkZYHsh55wQJ8ex6U6 q1hmQKN4RT2hl0YzYRXenE FgrKKhKESrs9Mwrbflg6Nk IZQxqfThc0YbHEKtymJcdK QzVECoqoXkgf6mxwWpOBSl XVXkM9HqhiftqZryeeVhKO Ubvg4xlrGlRYQ8KVZDMHOa UTWlk0CgnU4khMDNDCT2bK Ooqq2hkqBEfODrKNFbnq85 VUOxVV0qS6gaCMOpZPBkhh HzkDMvl2YlJOOhiAG7mUBg VF9OFcPFe52fEQEfAGEQry CbNOShbVoilCV6tqD9yH5y IChGREEpLlx+IFRoZSBGRE OxFP5rbzAtv8HoxrVurIhn DFOceGRlx9SguRRin1QweU rjd5HtqMUicGIcTN8kOXLb clxwYXIgVVRNQiBMYWJvcm F1f9WdVKZkBLTqZID5oGyl xao5OTMuoG4qXRLbF6saqf puFSwrUFAlr2QrcR6trPRJ qCXgi5ZsrWKvmEASpBAdRJ 7tvuLlBQjMPDnYOUB9ywQw YUFfw7VmBZvcV6miF53mtM drvTw7iEH3NYE2mI9nPdt+ IFxwYXJccGFyIEFwcHJvcH LyXVDdvQvqynOkE7TuisUs aM1brPBmuoRvRR9lTJ4aY3 E1uOXaYVQxgeCqk9xtHAsj dmUgYmVlbiByZXZpZXdlZC Ecr7PvUIsoEJX4RAftinJm bmNsdWRpbmcgSCZFLCBTcG JbqMBtLVC7JFmiekFialUk YG3tvE2bwQkbcT0weVRpyW R0kzkiHXBtPFTqjWqbQLNv ET8tzNqufP3aNiNiHhQnSY ojEJ8iHNSbR6iboBQjCFZw WPZrB9laMrCmxQ2dcZohSO xjZjJcZnMyMFxwYXJccGFy XHBsYWluXGYxXGZzMjBcbG FuZzEwMzNcaGljaFxmMVxk GzAjEMMwOGwwR7jkZfGuJ9 LhTVAoNoQoaQJjL3fyOSkg AZI0JPVsZW4btCAiPF18vU Lco9jxQDdviDpmrh0aP47c kMWgDBpsjSheZLCge05od9 IgQHRbfwDfrr7sPBLcgkT3 sC2kPPBoiTgdQBUlyNWmHL Stp1TpMRlroVMsduPqNZdn LBXqBGGstNRrdaP5tsBiep BxenMoGXKnxBzpMXBwy0Eu EDPaLUsdy8Chwu3pbGUhGZ TcmyERuBqgeNBsuR2yZ3Ib AOFmEEGlme5sRKZpvI9lYV mqc1DcwbsaJIMqETNaHPIx zmWymz6gNECsoZMUDZ0AJN lkaTLbj5KzlmOrW0gOPGB8 NUQwNjYwMjgxKSBleGNlcH UpAASmco98DNXhyF0zyChm GMOkqC0rdG6qdZqlfV7qBz TnPeFlJZpxZO8nPEDjN6qa dKDpQBTzIFErF5ppClBpkM 9jaFxmMVxjZjJcZnMyMFxw YXJ9fQ== Embedded Images (test code = [id number]) [facility] [id number] 19:23:05* Test Item Value Reference Range Interpretation Comme nts Case Report (test code = [id number]) Surgical Pathology ?Case: [id number] ? Authorizing Provider: ?Dominic Keita MD ? [...] HPylori ? Final Diagnosis (test code = [id number]) z7fkoEWmQJKzt1wgLIXhhL FuZzEwMzNcZnRuYmpcdWMx PLlzhcQzCHlmlCngBPP1VO JmCT9vdWfblMe4tJmoWHXp fuY7qGUfBEqjc5azZBN5r4 dvcwcvFXNcHXxtJr7ulHFm eOmzOrOvTNGnBUg1xC80FK BwkG3opJEiHVj7CDTryKDn noEsAxTlKRMqxDIqxIX5DI IgNE9puiutTGivHIxgBSFw ncY1XHYayAUtC3YoHQOqYX 8fvhggLXO4AYohRKKoENK4 JaHpMAGeo8Ppjno4TfZhvM FyZFxwbGFpblxmczIwXHBh hcVLVzBCOB0FWOCBLEKOI6 eDTFEWMW1AEZUKOdxhnUIl BXHfTLDqFBZGTI0APOJbY1 mUWzXkZM3JTKKxGJMmsLYb NZReukNNBqLMJZ3FIP0AWC wgQklPUFNZOlxwYXIgICAg BNZuCJcAW0XNQEBwDLNSN7 VFMAjAWWslNr3uERPKXT5J V0mVI9SESJRVDC2EBFioLT XxBVOuDLGwXW4KCSlbKSJC OR0YKKCPABFRKDyQXYRTTY VFVLeMQKFWG6AWDCxUUYAy oczaNXFpXn6jS8PRMJPKKW wgQklPUFNZOlxwYXIgICAg UJCrXKYRO8YPLiOAWP1OK8 5QVZUAJKDFDN0WKTKGRBvG GS3VUNBUDHOICXJKB3NneS FyICAgICAgLSBOTyBFVklE UU6EUDCQZdMKEZnNIMYvNL lTRUFTRVxwYXIgICAgICAt VL5QKYzfMKPRQS3MLJHAYa dBTklTTVMgSURFTlRJRklF ADAOJQUPEP1EEx4MONLBHo xwYXJccGFyfXtccnRmMVxz p7TpB5ScNkLbGUqmapGdYL BzQxepoeqhRTLqQQM7qeIj QUFeLIgyRYPkICadWw0krP YnxSulWiPnMUMau4girnYB GYdaYhPyL428UOKfTUnde4 kfm3PePWSvmNXut7Q9SFTH bgzmdNl0v4yqQcIlQoY2oL ExDDcaZ6vfeqSjbYIbF4Zb aFMcpWf9vWopF26xq8F9Zw meZ6snGEXuWRJqM8WfCJ6i QAMjPfi5DFP6YVU8WBBwSK KiQ2DgTE6iFWIahHPeBPp7 g5wbqLshKDDyPQU7c7rbNQ kgeoS9RP6mlo1vhAp8z3qn czEgRGVmYXVsdCBQYXJhZ3 FpuYerRu9xkZv9tAavUdqe JWN0Ewe5YE4krz81xdj3wG nxNVMqakodHrR8YTfoZOLg xjljXZw3TTieUDNoqEX7UO PjfPIsG8OuZZWlPB4dlhr4 JEN9TSbaMPVuImA9MMGzeL XtUPZpoQyvXFbsd591GJR9 TdLgRX9jY6Hyb9R4mH1wxY FtGYBnoNAsEzOwPPOmrh7d iFHfFSlng9CtHMG1baT5sW SjnHIxSRDpKZ05Qszct4Xx ElqiSIW1YEScxtQbk5Otj7 koSlXqwsUrW1voF4ThHGHk BSZwDHZkDrQifyHcp3Iwa3 HcvCRoaOg0r4wmGRHfDZJq cQftv5kwSVM9FMUjW1O8pC Eys6vmPOtaTZAkgII8eyJ9 VGJbzCWaI1RdwW2dXOHtCO 1gjay6m5abIEB0TXuuHMQv WqP8kqV4GSRwtSUqKBNbcN ixVDllj600MYE9CaBfSAOd c8PsZ3ZtrQqrB75hbMvnZ7 8kHJQmoEyrqD8qcXsgbT6k ZjBcZnMyNFxxbFxwbGFpbl xmMVxmczIwXGxhbmcxMDMz EJveK5kfZaSzGSUrmTvsBV kdc6WzWYRaGDYfGwiyjlGq XHBhciBJIGhhdmUgcGVyc2 9uYWxseSByZXZpZXdlZCBh sSdhj9LwS4phCK4wJ1JpsY OzrbVwygIdWJznMATon1i1 fIPwcFgjf2VpcYXvSQ89vz EiNREiZMR3CCMem6jkXJ77 uhoxZrShwF67uqZbcwZhUG Kyb0ppC0rwqTYhs3Myc9Mu seZyZWurp7GiHC5uxWCser hbaCR2UDSkoHRhzwNzlbT8 nJwqWYLbdV0taP9oxRlsnO 2bHxEsPhXrOTiuCV3aBGQu V0ripUPpKNJkOYQxW6uvFx GkwA7rbUhdMihnnkG7COUh cn19 Clinical Information (test code = [id number]) Shivani Schuler is a 47 year old female with IDA1. Gastric polyp x 6 r/o adenoma2.Duodenal Bx, r/o Celiac disease 3. Gastric Bx r/o HPylori Gross Description (test code = [id number]) o2ojmGZuUXNpaRYGQNO6ET WdOD9fuEofqMq7zCwpWQCt osK8oAFeAYkma1flCOK6w1 hfevWOZnlyLWPsIZ1iLTat AKQfFQ5eVlTrZXQmNtFsLI BhcGVydzEyMjQwXHBhcGVy kRX3VUTyOY1ygjxaJJpcVO nuAFUjxoN8EPPfzALwJ9Dn IGRwXS1vexvhZNA9BFEAXz yxQg4zzYZzeIihUtCrTgQt YXJzZXQwXGZuaWwgQXJpYW w7nR5ACbtuUVB2SCYOKztr FzzzmZqgj9LclQXhOONzKA xcaWQgNTEwMDAgXFxkYiBP UoXqYeX0Qss7YXW9WeB5CQ e7AOWMCPNdHzatMDG6TlA9 LGv4XAJpZZ4aVDovaBUrIT fnHwcnQOygY439QUllRYDq R5RkQ3MqALymStHgFPaaDF GeOYAaYWszCYVqY9FPLCRp XBV5WdMsTZRkOCw3ERsaY5 XNJBXoNJMpMwA2POUcOoA0 AMg5CONUSq4uKMfvVaMlNN l7IQX2BBy4XpOnAZVaFbAs PJElHHEcQDvtbYNhQN2dxE nrUHTqZE9CTBYaNUtwLIAt OpVxC6XAL2xYJQ8nXKaiwN JjaFxmczIyXHBhciANClxw MIMiFA3JCXUgFXkhFNq5ha BuKWPePoZbEZSvF67ho1RA d6VoOQ3JECh7wmIeqxwuvW 5hRZKzppLlBYcGwGFwaS5w mnQXFCqjEEDkY8XitoJgGR kcHBIdnq5edLopZPkaMdRg bGVkIHdpdGggdGhlIHBhdG opmjWcQ1P7rhGlFV4iEZYZ DVHylX1sONHoTNQbf7YehR XhaUqrS6KkkFRyTcSoz8x9 iCR9UOCcubEiHGHnpZTpZF Xhtn2aFXrqBcKwG0N5TEPu RKKon39luCX9voEaWlKlwY h2iHRdJUE4FS9wxVnnjxOz h3v7cY0vDDZtv9H6XOIgb8 L4SPYinePptQSkwDUyIBBk RP7ybfDeHT75MEGnRWwwLL nnUHO3OYS0NLQbuIEys3tp oqfaGz8vQDvdRX6hMXnlAI 77GZKfAQjbPKZpD9ZfT9S1 SGfuXONkXVBnzPKnrQ0wbn OnvsLozVc7SULwCUI2zPXq oEqbACIqPcjpuMP2FZXhLl TajwUxv4ZufTo7cFYdKWmc DHWpfA9qiZ6lBCFvNAEcpf WUUozxFKRrUUcfm4JrWDes cGljWHNhMzAgDQpcZXBpY0 3zp5SJb7Dmm5qsgVtrc6Lx oXZzCD5ajDGeVU5Rm1nzRK OmwQZsCJE5DNgun0heXWmc LGS3PMIhWdCnCERiUB6IQv PtOSdeSMr5TDhkBOr4YCd1 XR9UEyYvKKRiFom7DgP8Tx KbMVc8JTxzLI3WWOE7XFHk EGFyMAniNID2IRUmKNi3MG IgXFxzcyAzIFxcZmwgXFxu E19zzCArKLhlJvRzYMftgP qjWQNvFYQ4ZB2XQVXgLcEo W9DJR2hOPO3lZkawkdNeOT PdjpQDIsrtTIJmPX5QGWEu LDzdKMt7poFjAMZnRvXaHU NuV19mm7CUd7YgFO1JLXy3 lfDnlpiffJ6bWDKqvwGlf7 IzMFxlcGljWHNiMzAgDQpT iGKhhQ9uiqTHZGknVSCrK4 IqpmWeIOphLGYqgi7zqLiv IGxhYmVsbGVkIHdpdGggdG wrTYQseYftgrYnW9M0rkRl FZ2tTTITPFLnmI7qZKLgTP QpZDBjWYHuqG3yIXO5h0Xw adZkCZZPCXIrzUodBN30vH BjZWxpYWMgZGlzZWFzZSBh ilVusuMzg13cjjJvk2PbEM 0zbSmhAKyOIWvwRiSqJI5r TQBucgDpu6DmVR7jZEDinT CrTEIsjcrolLFtYHu1hIHo PGFvVlLofUafe5UaJQUcKP zyIO14waQyIJ6lRWmpVZ5a HHojYG1uIDNhWRLxHWDtYg PfoUEsZvUikCHtPgLcN94u SnFUpAWlk4LpI7jjDO5lbQ DwNfgkmBAbKQZwbKhxt2Lv jGNwNSXwl5CdoLSzUOxhKZ 5fKWF1Qa6uqXBbMXTsncE9 p3SmAPkpFXHqOyhfCBBtJS vcr5EgGVNsjZPYg8LjMU3A XHBhciANClxzYTMwXGVwaW BCr4JjCZXYBzklyXpvWkDt qWIrZvQ6VKHzzLQyGNY0UH 3swTqfXIVhFHs6KIcqOBKz S2WvI8OlOEimZxXdHBidYW DiZWRwKKjdEDNmI4UWCHOz WSX1PjRuFIDfAJz3GPnaT7 EQZQJsVJGhCqA1KFI5LzT2 VWo7INETTn7hWQobRoWgTA VoXwK7BXf1GfVmBHOfZyRg HFPhWSQbAAokoUXmIX8xeU ozYNHnUJYfYSN3YQGpcTLA t9EkMEAgICjsYvGgNEQVNT FRUM0YCpXPFRXiXpFegKGr IE1QQKXzchNdZDphkFsqqP 4ztQHfN1dlRsLnQnyhnYyq TmVzdERvYzEgDQpcbHRycG FyXGxpbjBccmluMFxzYjMw LADsyHKNl5PbFFODYcSgRW NpbWVuIEMgaXMgcmVjZWl2 ESThyF5sCp4ccFTdjK8bnH OcSClzKDRob6c2gBJ4nMIr xFA5qOGuiTkwRlZkSX2bkR EuLTTRCD29zWHvzdFfGERp cU2wNVUkYTNdRDP7ydjuNY JORXR5hVDjy7M6WHipYBV6 bT9ihRbyQsCoH9O4VIYnLQ Fan48utBH3mcVnHcQtYDSq yh2udY6ePOjfkoWymSaxix Uji7P7TXRjk8Q4TXAgmlOc sSHkaMXiYLFiIyI3DQExCy N2JRSfEVQnnMXpDCWhMQ9w VGhlIHNwZWNpbWVuIGlzIG DnlIEkorQkNCPrma97D4lp OUZmiY0tx5tdYdIfAWQxUF PwsUBsnRU4SQQzdF6gnO36 mhNedtDXRN0zgZKeHF6SZU NiMFxlcGljWHNiMCANClxw HQXzXXaym1DxWUdfpWnhYN UnRvOnOUdDoWnwDDNRX4og yHOtHRndCRSIKTwFD5COMH 5JRGXofPSPZYF4DL4xTCox VTQiS3GtR3CxebS0p2actN ncv8SxzYReSC1csPBmPO9L XHBhcmQgDQp9 Disclaimer (test code = [id number]) d9knwDUhBLSmw1csZPUrjE FuZzEwMzNcZnRuYmpcdWMx LRqannYlUDgcq2TnA3KmUu AwMFxhbnNpXGRlZmxhbmcx SMYvURE2hxAjRBTtRIedET WuMBpqMp2eyORcyQvaMqSq OLQjy1qapvUTMAlcJjNhZ0 79JITeLJxxn3ych0WpACPq bXIfs0R9CQYUbsafsFz1eQ tlY28rb0S3SctoL4ppMRKl QJBhJ2UzNF0bNNRqFqj6GS E1DVU1UXXjWLZeA2YiUF8k KUUzqHBjPDh0b6hydCqoBH UnZPS4e0jdYBrjwbLmHN6y dt0aeBq4r5fygwXeNQXfMK ImuJVDHUKqB3UeuAicKf7o rQk9lPvtNpfpTUT3Pat0EB 3zss32ayd7qYwaNATtkgcy WwZ1LNfqTTXlqcxkFZv2HX qjFLSxtQJ9PRPsfAAdU1Lb WDVdWQ4zdtc0BOD9RFrsMN JrQsV1SJCcxKWzZGUjbDal VUsiq272PHZ3AtIoBE7jY6 Hrs5E0lE2ceDEdSJSkwFAx DdLlEERzsr6urTElQYcuq6 AcINY6mzQ1eIRvtUPeCUIe CR95Nmruz5ReAlagm4XtD1 3phVX8EBjgt5jjGL2tVqT5 cqCkBSonz0pkgP6vOlJ1DU kpUM0rHI2nGZKnfS8vozix XHBnYnJkcmhlYWRccGdicm ZcQb3vmUyoEUP2FLvrB9op vX4iSyZ4WBqjG2bdrK0aCJ t1REqxtLB2SGKljP8wVZ7n ucggw1yvCSrwELfqLFAiwq G5vrF4KZYunEDgC3DxkF6a OAPjNE7bcffge6tvSEI5TF ehWFPxKXO2PtTsGIWiz4Bl tvg8OpFed5NjfYLlQOrkE7 6zk323RJUnzxSmR8bghFWt fwezaGGlrfnfHGrwbjQ9TY QfrlNxn1KrCPXtMNF8EFmc UOmnsOZlWRQjkNsna7luK9 RscGFyXHBsYWluXGYxXGZz MjBcbGFuZzEwMzNcaGljaF hdYTotXdChMGLlFCbcL8bi XlJmW9OdINGlRzDrrZJuM2 ggVGhpcyByZXBvcnQgbWF5 MEhgE3v1SMXxjiCsbUg2ox CpAvRvHIYxJCL3TBcizGRh PPAft4WhnvukzUNeHm5tjF WkIRKfuT1yTBRtDSMcRRef MG5toAj2VHODbRUmrQIaCr XIYDKsCB57zsCgXOHHimuu v8Y4HAhmNFThp2OmrUJuJ5 frz3WdKLKge47jCU9yq4T0 z3doCQX2JI7tq8WbEKKqlX ZnlOKxTFSor7Ofxsnok6Nj UPRvthTfq8UdCOCeopQjcZ ZvTEQbngQgcn1txkTcUASg PBVjR6PzoohnrSdoreTcOT Tjbp8opgXsHNR5ESYIVTNp HLLjm9AggO4nwACJZMR7eC Gcoh4zejBVrAQmXKVgcd33 NICpNY9tE4whLJKbMNRcgz DekJNkt8SpZWRrmFN9nTEx AX6ICwGHb89sELJsXRRKyh CnRWZviFkbdNN5lnD7cO3e IChGREEpLlx+IFRoZSBGRE OyYD0kewXtu7UbhrWruQgm WBVnhTDuf6OixOEiq7VvvE zci6RniCRwuLHpZA6rBCSo clxwYXIgVVRNQiBMYWJvcm Z4r1TmWUCrGMLpRYA9nMai ucy3ATBovR0mWANcW0oqsp lqRJboSBCjo3HlnF7ddLPV fNVub3EfhGRvsJJMkJDnSP 4bwgTkYZzMDRqSQRM0eeLt YWQns8VlJEkrW6hoD71nqL oroIy6xKT6NAQ1oR8hTcu+ IFxwYXJccGFyIEFwcHJvcH OpVTMwyKjkvhDvA1PtbnXv wE8ryDZlpsRhWW1jSI6rK4 P6bPUkPZYvduAmc5hqDEpd dmUgYmVlbiByZXZpZXdlZC Wbb8HcKEjtKMZ2PLiyjfLh bmNsdWRpbmcgSCZFLCBTcG SppRBtGMZ2NTydkxAouoXq MU9gkN0dqPhnwA0wzRUuxT E9mfovGQQyPCQbtYawBVVn WV3bbCnkyK2dKaMuMtSwOK gbEL1wMHRvO1ytoQRnWEWi YCQoV5vjQeNlkC5gtErpDA xjZjJcZnMyMFxwYXJccGFy XHBsYWluXGYxXGZzMjBcbG FuZzEwMzNcaGljaFxmMVxk MsCnRPOvFXgxV5hqFdXtI5 WsYMIhDsTobWRnX2hxDGmj CAR3UTRlWW4gfKOkSN55kL Vew1kgJPaccVeydi7kO07e aMIhSAmhtZzhRHJlk59rj9 VdSQDztoJuvk7eHCFuraM0 gA4kCJFzrUzgIDDsaITwWR Dzz5IqHFnxaFYnkiBjEAzz LVYmSJKxdXUjkpX6uqLjyr RsfuBfHVJmdHnnVBQjg7Dr CHMoSOzvs6Lscm0meHHvCA HisrPLmJznbQEilD5pR9Gg LJGhRTIuhy9hVDAvsE3lAN wdx3TevsxuXUOeTSGdVISn caHsda6tVBIysWKONR0HNU qmgQBdz6YfucFoF1xCXER3 NUQwNjYwMjgxKSBleGNlcH StWHBgwv55QVSykK2jdVeu AFEpmF3mbN3tnCibdY3fZl IvErVpFZaxLV5yPFJrH0gg jEGrVRSoCUAcN6zvNrZnhH 9jaFxmMVxjZjJcZnMyMFxw YXJ9fQ== Embedded Images (test code = [id number]) [facility] [id number] 19:23:05* Test Item Value Reference Range Interpretation Comme nts Case Report (test code = [id number]) Surgical Pathology ?Case: [id number] ? Authorizing Provider: ?Dominic Keita MD ? [...] HPylori ? Final Diagnosis (test code = [id number]) [id number] FuZzEwMzNcZnRuYmpcdWMx NDsdndXhBHtbdUmxFZI2SG YuTY6lvTnlwWe8kYsxBQJo viL9bCAoUEwir6rlBWW7y0 mnuhfcXBEtJZgfLb0ahFRy pSpfImReNMFlFEr5oW01YE SkvE8uhLWgOAl6ZPQayIJq yqHjKqUzTWYggDIgdZP5NR DpFW2ufbvhJZufSBvbOJWo wcF6LFAuoGZhA2DdYGYfMC 5nxcyqTNW0BNktKLCtFAY9 RqCiRQXlc5Txnlx6EiZcoQ FyZFxwbGFpblxmczIwXHBh gzXMDiVAQN5YRWQYHYWRE3 jUZOHPAJ0YTMQLYirsuFFo GOSyMWNcRBZGBM0LOVAnI4 xDNmZgJD7XKQNjBQPkaFCg GLNsajVYNhCIME2BHL0NKJ wgQklPUFNZOlxwYXIgICAg QMIhAIlGT6WWKPJwCDLAE5 OORSaZJUyrJl3tGSIXZK0U E9wJL5XJCQYXEQ7WIKskPK IqUMSqVWUxER6BGLnbEMYB HR8LPVOBVZEULFgQGQRFFC DFBVuKJQFKA6JJOUeZVGDs ektwZIVaQy5qY7FXINHQTT wgQklPUFNZOlxwYXIgICAg EDGhAKJBS2DQUwUODL7JE7 1IRYVAQUUYFI7CBMRSWThR XV3MYDXHXWHOCWIJR0MrjI FyICAgICAgLSBOTyBFVklE JE5RQROYEqYQJBfLIPZaRQ lTRUFTRVxwYXIgICAgICAt DC8TXRxrVDAYJM8AHTLXKb dBTklTTVMgSURFTlRJRklF COAUWEYILN3KEd7ILPVGNq xwYXJccGFyfXtccnRmMVxz w1CcV1QgGoJsBJilfrAkBJ HbDrdhktfmYZNsRTR7yvXx DOYlXChfSUDfDIvyNa7sfN UtfVrlYnSiXRJqb3jjisDG LLdtNfHmD468POYdQBmdg2 flc4XiKVZkmWSzr7G4QLTK hbfoqBr9a1ccJjAwCrA8gU CfVXqwP8rmkjSpfTAsV8Iq xBRlhIh4vSopQ46qr5Y3Gn dsM4rgNVWgALIsR3IrMU8z PBMwFcc7MAG6YTT9IDMpKA FaB5RhYA0yOMDzxRFhJFq6 h2prsQfdRTUuBPU3g9hhEY paizZ0EV8avz0qhJv0k8zu czEgRGVmYXVsdCBQYXJhZ3 KhyXwkGe9zoQx3gLyeAppm SED6Qgs7TL3qre21lok5kJ sqRAPewhaqFyX0WTdjEWQc rcdaSYl2DOduGLBeySZ8XA UfoXKlX5ViSWGyLF0zvhv6 TSM9RDxmQOGpZxB0JCDfgD BeDVHehWkoUPalu564QWK8 VjTkIW3xH2Lhu5V3sV9zoP IkKHXztKPnPjUzIJGfir2c gYNuSJgxh9VwHLQ8ssR2mZ HvmBDaDBIgPR13Zopsn8Ps OzgxCTA4OQUfazWwj0Upi9 ahUxCdbeDeX3pbP4BsCOHm NAOrURGdVuOpscAjb5Fns5 EgoXAomPf5o7vmZHOzXELi sDyur4csOFD7BOOeO3R9nU Ouk9zcXVglKMQyaPL2ifN4 ITYvkQHsR0KurK9kOLGdIY 9qckm0p0aoPQY2FMdsJKBv NsU3veE3ZHQtiTMpNUWcvP fjVJtuy525JGE5IjNdSEUz m6FnG5SzwAwbJ99peXhmG9 7wJOIveKojiP6seAkkiN6n ZjBcZnMyNFxxbFxwbGFpbl xmMVxmczIwXGxhbmcxMDMz JUodT0ofLjGdWHZdxAtuZL tbg1RgZEQqMBMfJkhjfbSl XHBhciBJIGhhdmUgcGVyc2 9uYWxseSByZXZpZXdlZCBh kXsiq6TlZ8vvES7mQ0OgbZ JqrdQiehEaOApoNPShv6n8 sXZbjTgto4LefGYhDK83pr TbYZHmITR8SNBgf1sfGV91 kbxxYrUfeT06ofXdxiVgCI Sfn1uxX1cuiDUgk1Xfd2Tg ceIiZTnkp6ScVB5btOPske ldpCH4BFLukEBefxZtysH3 rSfaZDLjiA8liT3vrVgmqG 0uQxGnIiUcFBkwQK4sNKZv N1rvfFJbTXKcKYNzM6shWw SmrP6zsVbjCimlifC5WVXv cn19 Clinical Information (test code = [id number]) Shivani Schuler is a 47 year old female with IDA1. Gastric polyp x 6 r/o adenoma2.Duodenal Bx, r/o Celiac disease 3. Gastric Bx r/o HPylori Gross Description (test code = [id number]) v2zxfKLoVAHppYYJWTE5CE XvCT7hzNhkcBq1oMurBJJt nfT6yMBmIYkqj3riZMH9h5 lklcPYQonkIHKxHG0vCVez VXYtOV4cGoCoKWTmUhItJL BhcGVydzEyMjQwXHBhcGVy vRG1EXYuNX1drzefQKtbVS aiSLFmpsH0BKFvyVMsH7Ht HTUwIL1texxpQHM8XODTZb axAr2nnFLapBuyVkIvVmLg YXJzZXQwXGZuaWwgQXJpYW a3uN0ZOblvQTX1YDAKVkfg DnbslPpzu5AlxQGgFBCzZC xcaWQgNTEwMDAgXFxkYiBP NiJiChP6Fnc5WVV8HoG8LB p7PFSQNTOyXaalMKG3BtD2 SVe9AYSmBD3gZJyynXIwVH yoWuiqMYikV622GMwqMBZv U6JbY9ZrVJmwEiFmGBzwAZ JkWOVpZDvpGEYnP8YCCWFg LGJ2CzNpRMJzHNf9VHkeN9 RMBJRpNKHaQeN1RSChFgG9 MMr3HHJIMy5oJWitWfFwEH l3MBY8CGn6TqQkQIFcVyXs OPMfARIqMBmqbWFhCS7rzJ dyLVGbJT4SSWJoGAqbZRCp IkNsT5KFK2yRSH6vBAjwyR JjaFxmczIyXHBhciANClxw SJDfKB7YBHLzADwtVVx8ls SvPRLmGwMlUHOqE01gj7DP s8EgHL2ZGIw3rmSajgjjrO 6lZOGmcoRpMDaHpTQzmG2l ybATJTtiRKNzX3YanaOjYX xvVHEhoz0ggWtfDLabCbDs bGVkIHdpdGggdGhlIHBhdG jhdlUuC2O1rbJaZY7cTYRD MZInwY1qMKXoXTRko7GtnT WdvDgpN3GtfBPqGuVox7e4 oFU8CJJqgyHnBSThmFUfHX Sxzh9cUDavKoIwH2J4LTPj OYUma54ylFN2vmRuMiNccW z4fQMgAZL5JV5mtGresqBl s1u9gG9kMPMyw8J3WKIsg8 U0IUEcgoTomPOfrXIePKIm RF2ugxIfVG90RJKsKWarQD uaNZX5UNR6IAKkmOAzg2xq pvvnVy4aEFpzXN4aOPhgXV 81GTBxCNpuPOJoS0BnS0B9 ECfmUEZxMLUupFNllK8cpk HxaiYcnYr1NJTvPKG4iOZo wFklWSTaRecunUE5OIWhQf LrmxTyv3WuwIa8dIIvWNal OTGrgF6ebY0ySUPdEQRwog LXKwztQNGcYAwwr1GbPAed cGljWHNhMzAgDQpcZXBpY0 0pm0PCk4Uov5ssqLhef4Pw eXEoNS4ilRBvPI2Tq2wcFY RdoCAwHMZ0TAjoa0gcFQyc KCO6KCFlNaLlRRGqAT5EBb XlHRyiFXb5IBglEBj1KIe2 NT9DPaIjYQOeVta7DhZ6Pr TcOEj1TFtuUJ1DNFZ2AKXp WLXwZWfmGAK2YYIzFMt1UR IgXFxzcyAzIFxcZmwgXFxu G74diEPtRDhcMgKeKZxbqW edADVeKJX4ZN3YEIRuQuIz H8LZG5tDIK4eNvybleDcQQ BgheRCLeaaOTHmNW4NWKGq XIvcMUr2yfQrSWEkBuUjVY GlY53sa0DFu5MgMC9OMSe2 cbYmevdljG9oSQMxalCtu9 IzMFxlcGljWHNiMzAgDQpT dWEyhR5nduCQIAvaUHDnP6 MekgVfFNtuOBXjie9nyFwy IGxhYmVsbGVkIHdpdGggdG ejKGDsuPoociIuN2V2anGu KX0qGMXUAXFqtO7nBOZtXR AtGHDmEUOdhX3oCVJ0q6Hc rdXsCSLRLGZtoEsdKA76uB BjZWxpYWMgZGlzZWFzZSBh lfLagcVdv28qzdZkz4WrXN 9uqWbxHQhGAZvpXqHeNA3y TFIdcnWsq5JtON1iAFXhoE PsWUDrpothgIIzHKn0aPBu IRLkIqTsnAjcs8JnXHFvIX rwGU71vpZhRP7sIJtdVQ6t VNtbHD5yXGZbLNDbLGQtDp DjgTExMyLvoFOhJdSoF45a BcUItUDzj6MhU0vyXH5faS HjUgyurOQyGMEyiKqve3Ry nHXuXLCmb2NqfUVxLXrhEG 8dRMZ1Cz0khLPtDNNasgG2 e2OaSJywCYUhEwubETPaUT mep0CxAMVtmEXCm4IuXW0N XHBhciANClxzYTMwXGVwaW ISm5AxZRFFLbyedPcwZsPq kTQsBmW1UPXzhSDzKMT2RX 7tgFprCXVpEDc4DFzvRKEq U6NyN2FcQBqjRhGfHXbdUF KwGWSjANosHPMfG4ODIIUy GKK4VbAqXTVwMDg7NPocL0 GFAKEhRHWyMeL2QTX0HmD8 BOy8GIOASs6vQHumNvFjJC SzUzQ3FYg2IfOdRYJqKlFe IOQdXQJdZGbfnCHfLV0fhQ avEHFcXMHxSAA0OGXsdQFP l0DoVNAkINisCdCpILVKDE QIEO9SVcEPDNTtNaKvhJHq XS7ENNHikyJjIHdjvYcbcK 0inJTiU8wsGuSvEchnaDwe TmVzdERvYzEgDQpcbHRycG FyXGxpbjBccmluMFxzYjMw FIDddSMKu3AjXQSXMlUnRV NpbWVuIEMgaXMgcmVjZWl2 LJRiqV3uQm5xrPReoG7vjV XvZDukJNHua8u5fGL8rKCv tPW6hDGmbIbhObUuST3hxX YjWITPPD73fBWxsgXvEKXe cQ2eMOYfGUGgGRJ1hgksOO KXTNS4fWPgn4O9QYdjLHD5 bX4zaIcrQlTeW0I6IAYtJD Xuu33bnLL8unJkTkBhSMIs ns3zuF8rFVobqnHjjZktms Pml1O9XARyk8M0GOCgqwDe aKHjtVPbOVNtSsB0EUQvEh I9FGIaVPPigBGeOORiBP6p VGhlIHNwZWNpbWVuIGlzIG YyxJIcdgQjGNEnst57M3ti HOAknF4tm1dxJwSpQIVzFG XxqGLoxYR0SIOnkT6qpR11 eeSsqoRLKP6agXGaOI6CZC NiMFxlcGljWHNiMCANClxw HHEwQTowi5JpTXsmuCstJU FtWpSbYNmHtPnpRCWEK3gz jFAjWOncSAESYKjKV3EJIM 2SEULxtQGICZS4PD9pVSjb GLDfG8McN4SzfsR4n1hlkB bym7AicHYvWT2xmDSlUL4L XHBhcmQgDQp9 Disclaimer (test code = [id number]) i8pszZJqEPWbg8vvUFEpkQ FuZzEwMzNcZnRuYmpcdWMx QLwjalXqBSbgs1YsG8NzQr AwMFxhbnNpXGRlZmxhbmcx QDKjZCX0pxAgBNSpJZfdEJ BpJMvhRm9gsTYwuIvvUtLl OFIeb1clusUCCKrfKbRaW6 17RMTcWObgi6muj2DbNSUu oVOnw9X6SDYIeuqvhCt5rT ndA83tb2W2BcisE3plNRPr IBJuB2RhQL0rSSHfRwm4NM X4UAD9DUOkGNDsU7HhAI9y ZOItyAJpZXt0u4jbuLolBM HsWBM9j5jmMXxodsZqHR7c jk9ngIf2q2grfvTlIBZiCR OrqUUGFKYrT8DvfJjvBx8l hJw4wIuzJppmAYK3Grn1TL 1rgi24lmb8cYglNOAzdbah XwJ2WCwrLNBmteikBUu8ZB ltEVAosWJ4OVXzsWIqC6Vk PPDwZC2ynaj2VMA0QAuwHL DtNfW7NYBvyUDjRODoxWoa RZulo244MBH9UvEcFT1bE0 Vrb9B4aI2wuBPoCTXbeRDk KqQtHPYxnd3tvWCuUSdcx4 ZlPON6ubE6uEJlfXVmESIt DS14Cykfp2KzMwtyl0AqJ1 6tdHT5LWzqp2qpSB0aXmO2 frPrBAsjd2mbcE5oOtW9YB nuHA6rQZ7tEDUccB8mgpck XHBnYnJkcmhlYWRccGdicm QxPt6vrZmiDHM3RFdtE8sw pC2eScC5EDamK0qmcK1oCB m0YQcqiBO4OWIxqG3mUY5b pintd7acWRajOXapPTHqdc Q0njG6CPOdvHLcZ6VeiX0e QLSvHY2vmftdf0oaKQC3HM laTMAhZMK9ZlQgCZMke1Gm kzv2PuPvt0ZnuSRzHSesW5 7st271DFAljlBrS7rzqEVb jfdcnTOsznqgQCpqraT0TQ NppjFow5PmFRJwZLN4TTly EMowtUBzYVAgwAfgt7ikZ5 RscGFyXHBsYWluXGYxXGZz MjBcbGFuZzEwMzNcaGljaF yaRXrzKwGlAIHjUIckN9zi KdBwU1QvIKYfArBdfHCcX4 ggVGhpcyByZXBvcnQgbWF5 EVndK4d8IMPejwDlnYu3hy VyEtZkYAXgLTE2UEhyrFKf HYXze3XpmaxclHHrAq1aeD JeUYHdrR8qSZWzIOLbAQro ML1lhQe5BRDTaYAtpKPpGx MYSUWmYU16trVzQXNVooah k8Z0IYimCAKdo6ZcgDYsW6 ypb8BxOXRrw81fSS9fo3F3 t7udSIF3OS9mj6BxQQRfeB HypYNoAPQbx9Vmffnnf7Jc TDNpliAyf0DiHURfinQdmN QuZECmrqUujc5hncGaCOHh TMZjG1KmdtgfzWudsiNgXX Vxaf7hcmCnOVH5YQRPAVHc GZYrj1LjjP9ffUCQVRR5vE Ntso4yvqESwGRqIIExre19 CFLjHU1zJ6hyFRUdLDBpcv YbgVGyg7DsZNGqlTY9gRLn RE3ZWhSKz67mWHWnDLLWnb XpXFRrcMgitRZ7tzD7dW2m IChGREEpLlx+IFRoZSBGRE OwQL8iodJgd5WdwxWhcKre IOHpwUJop9TqzAEgr3UcfR gsv5FkmALcgIWbLZ2lSZCs clxwYXIgVVRNQiBMYWJvcm Z7t2TxRTGvVEUzXEU2vMwt bot0PKIdmS7tSTEcJ4ubhw qhTKhaXUBmx8CklI9jzLTN iNSrw1TiaVIvuOTMnVAcEI 3pegJfVJwBHJqLLLO5drBc LTCzt9HwASevI4ayS37hhU ddoUt2pML2PVS0tI8eQoo+ IFxwYXJccGFyIEFwcHJvcH NcOWJehNningEuD1NomaQy lT2fuJZloeVhIC9bXH7vH7 A6uBYcKFYocsAke5tcLXmc dmUgYmVlbiByZXZpZXdlZC Twi2WsXRtpKQB3DDndjnNn bmNsdWRpbmcgSCZFLCBTcG PvdMOvTOS8XDlzxxDjffAc IB0ewX4mjXjpeG0hsZAalA U3ysxsGVWgGYXzdStjDXUv BU1xtUsddN6rPeGnGwOnPK nwLJ0nNRDrZ1inxEDiJXOg FJHdX9yyJlWynS7xpPsnPF xjZjJcZnMyMFxwYXJccGFy XHBsYWluXGYxXGZzMjBcbG FuZzEwMzNcaGljaFxmMVxk GcVwMXGeEZmuM3luOhEpN1 JtHYWfHeGjrMJxZ2nnKMon WGX2EGVsTK8yxJXfPM98hZ Luu6muMBgxsNiwgx0oV16z pSNcWEfpfOvxDNGcq30ym3 EvKAPiaxXcbq9jODRpfzK4 iP5dVQHznUcvPFDzuDSdRY Uxk6XhJQhtpEOkiaVyCQmv PSUoQSEjlLTeumQ0cvOppu OulfFsANFnpOkcBPYqd2Qo KJGxVCjbt7Davq4iqYAgBZ UxmcJEeOiouBStgK4jT6Wb YGYxBCZxru4lXZHpmX0cHH fkd0QlztruSIKmBOGoGKHb dxKblm4rZQZdiPTMOS4HPJ sbqUCdl9LxflDvZ7uFMWB3 NUQwNjYwMjgxKSBleGNlcH DcJNZfrp42OKPkoQ7yrTvd BMUqmZ2lhX0cuOpdnS0iZs AjOyCnIBfiLI5yPYNeP7yz aYQrHBZhCAJyR1kmGlKldK 9jaFxmMVxjZjJcZnMyMFxw YXJ9fQ== Embedded Images (test code = [id number]) [facility] [id number] 19:23:05* Test Item Value Reference Range Interpretation Comme [facility] Case Report (test code = [id number]) Surgical Pathology ?Case: [id number] ? Authorizing Provider: ?Dominic Keita MD ? [...] HPylori ? Final Diagnosis (test code = [id number]) [id number] FuZzEwMzNcZnRuYmpcdWMx KRdigrAmMNcpqLrwEBK3IX PdPC8enRekvLn4pGpjBRYc ehG9qYPxBRwsw1liTUM5j8 kkigvqFSHgRWsiGd3kwDAg kEchKfNoXKKvSPw6xK99MY EiwM8lqNQuKEx8DTPclLSu ctCuDzTxQPXfnPTxgVL2MS RwRL8lahyrNFpuHSloOBQu bhA5SUQeyRUbS2WbNROcQI 0dtcruDUN9YAwtOTKxKQR6 HlFuMKUoy9Nzcwb4SpKkeX FyZFxwbGFpblxmczIwXHBh ndBRXlQXSK7TJLJDSTUSD5 nQSXNNEB0JFGXZZeettFKl BWCzKEOdCXHMZR1AFECmT6 xQPkDyXY4VPIZwYQUyrRUs UJXgusSDFyHORO4KPA8TRP wgQklPUFNZOlxwYXIgICAg GVDrOSoTF1XDCKLwDVARX1 VQRQwGDKvsFc2tXRVTZJ1L T1fSE2BXMTRDRR0SVDyhGI SkYWOxTDWgMK4FTMgcGWJH CW4OIOKAFCKSCJnAOOTHHX VZEYzQMSHKE7NJLOaBHQUj xuwfSVKsQb4zI0KFWLZDRE wgQklPUFNZOlxwYXIgICAg FPUvZDIHK5DYBxXAWR1FR0 8DWMKCEFIOOD6KMIPBZIbY CD2TNMTCAURVCYNXA2XwzA FyICAgICAgLSBOTyBFVklE LJ5CCHKIXlJQPRzCBLRbXI lTRUFTRVxwYXIgICAgICAt HO4SGMnoFLJHVQ8JTBZXBl dBTklTTVMgSURFTlRJRklF DTVEXKCCBG9ZXx5FWCAMEd xwYXJccGFyfXtccnRmMVxz d9XiQ3NtXvBcIUvrlyFrKS OhVmgdmxfrQKPeDUI2zuGi ARPySGmmGKFlPUosDh2wbG BheCbeAnPdEQEju7ekonVS WVijSmLrH443HUIiMDygz3 lqp1HbKUGkzZHrz3O2WEEU czcrmCc4n6iiPcUrUjD2pG BbQEqoQ6lazjLuiUBrG3Nw yHRokEf1eIauR43pi4D2Jl wkI7jcAICvMRGxR8PiCK8r YHWiImo6NZG6PYJ7KWSpFE OvB7KrLK7nTSDgzMPwNCt5 g7mblIquNWFyLPU5q5bsWQ yfrhI5VZ4hik8teHh1u3xc czEgRGVmYXVsdCBQYXJhZ3 XmfFefIu2xeGw2lSgmQjge PXC4Hgb4UN2qlj51gny8yT bnFLZfnagxNyR4HUzsBETv sxopXAg7RFuvJEXsqPV9NL XzvYUzB8CpJTYsZT0qxfy3 CFW8BDznIIFhXwP4LFLlsL AkGBWpqMmeEQavx069EYA4 CrAsQG1qC8Kgp9P9eK3prD IvVIZekTHjSbPxFAZnqv6l pCQuCTawy4SrIVP5vkM4vA PbxRFeCKUlIO62Byiad5Sw MzuuBLY2JUIdizLki6Fbw1 kaChTwtpRoL5axJ5BtTBKq VVYfVCFhExGsisUkk7Zsw2 RtdCHycGt4t1mdQUWvUNCv iHnlz0gpJBZ2BZQmM6E0lR Eao4cgAPpgRCNjzCJ3cjM7 DYRpsNMoQ9CqmM2pBHGqKI 8obem9v1grEZW8TUncNXQi UyC8deP7UAYltBBpOBZdcN lcZTcfi607LQT3LfNmPBKi n4QwQ4FzdBwoI27bgKqdW9 2yGDXxdAvicA8vqFfakA3t ZjBcZnMyNFxxbFxwbGFpbl xmMVxmczIwXGxhbmcxMDMz HZduR0bqXjApDVOwgMfvIK qzs2DuNGEdYCOyOpvlocHq XHBhciBJIGhhdmUgcGVyc2 9uYWxseSByZXZpZXdlZCBh iAmvk2MdJ1kgXM2xC9AyuI ZdttCkfzUpIMffKDXnr2j6 vIXcnCdeq3MndUGzKT91jb DlBHCkRJI5EKKej4ybXR64 syijEgXelW13veXrikUyZA Pob6jzU4vvoRIpj7Ulc2Lw ubPaFBhfr1LqAC6rdUUlci hrxDI1JWXcsSOuuqUfavU4 sVxpXSNjjV7owA2upMxxpT 5tSbNuFdRgROypUX3vPVXo W0nruEWpXGTfRWZpD5uwTz IffM2vmNrzRgcsgvQ2NXOw cn19 Clinical Information (test code = [id number]) Shivani Schuler is a 47 year old female with IDA1. Gastric polyp x 6 r/o adenoma2.Duodenal Bx, r/o Celiac disease 3. Gastric Bx r/o HPylori Gross Description (test code = [id number]) x6ftpWYwZFAgkLWBUWT9TB HoNS3jqLwziOc6dWldCYUo acF7uFOzGSijs5oyFAZ5g5 wwkpQXYmthUCTyGN1hWZsf XCKyCF2bMcNcVBSfZoSaRZ BhcGVydzEyMjQwXHBhcGVy bIH8EMRlDU9wjoxiXGwfER buPKSqkqN8CANroACoM4Ka IWBfDT7hynbkAUL0SPPECp dyKb0hrVDvyGyjMgZuAhUv YXJzZXQwXGZuaWwgQXJpYW n5hT6VUarvNKJ1OGCEVjeb YytqqKzog5GrsZToXHNbGX xcaWQgNTEwMDAgXFxkYiBP KpIzExV1Vad2PGT3KiN1VK v4QLBXAKIhGysyQNQ4EfJ9 FSw2LROlHJ9zAEpkzGWcGU yjViuhFFbfM265DFeqLFEv A1RvU4ZkZTieFeUmCShuTB AlLZEfWDznGTVkM5RGAKDq KNJ0RoPdYVQcTMo9MZniJ0 YVVXGsCGIbPwS2DVZfLlQ1 DGv8SVRFIp9dSFswBqMiRA w3FOX0UYe1UrLmQJMwDzLy ILTbGCKtGAuimYYwTI5yvX soWUKqBW6XOQFqDRfbONEx FuItX0JXA2yWKJ3fLPgvqY JjaFxmczIyXHBhciANClxw QEUxSA0LVYXxNWzdTOo0ti WmOPNbYiCfJTFaQ61vm7GI t6JxNT0AEPb5kvZhizhjfE 1fRQHqxlCcMNlRqILhbN8s dpZFGHqaRUMcR3RcozZxJQ dwLHPkhh6mdLnyFNdtHtMs bGVkIHdpdGggdGhlIHBhdG kiorTaY2B4jrWdXS2rUGZF GUWicF7oIMUaODBxw3FkdW FouYciG5XupZTwNgCyr3l2 oKZ5UZEfxyXyCRYxbLUaDS Jukk1rCQezUcKcV5I5ETEh CGDkt81lrHE2lzXwUtWtcZ w9kOPuYLK3BO3uvDapngNg z6m7pN8sLDSfz9O7NYPtv3 T6VIYbanNfqZFlmLOmMVHo DZ1jcpAgOQ98ZPFwLAqvTX llCHB8MHG1LSTllWRxb3oo uokpRo6uRSiwTO8fHQfsOD 00WPLiKUylCMUjV4HcZ7W7 CForHHHoMZZiyLLrcP9hjv UvtqQzqDx7XUZgEHX2jMPd tDfpUOMgYjldmFH1REAuVl KcmsLtg5LwmQx4uYLpEAtq WKSlkG1ihH5fAXCcBHCvdj IHTlcsKUQmJEofc7TqZHsi cGljWHNhMzAgDQpcZXBpY0 4xx3DBh5Yyh5adzQgmo2Jc rVPoKB9laHYsZW0Df3wrUF NmzUOqSWK7BMkjy8mhIVzz ZSW3ZRIgVkGdEYIkRA5NZa PqOCehYDn1NAfoSQm2ZIc8 SQ1JVnQwNVBjYzp9VbZ8Oy QkMBo6PKidCE9XZYU2NQFd KKWvBBgyEYQ9MBPeSYk4VX IgXFxzcyAzIFxcZmwgXFxu M47buRLcLMkbZhJpEZdrwP tdNASzLHW0XM9JZOOdIpEl Z7JUJ1hATK8qPvswltMfMJ KycwNQLpteMJUxXA3VKYQd WPldZGd9nhZuYCWlCvEnWU UjC58yf5AZh1XiCS8OIWj3 miNtdfspnB4zJJRhrhLkr1 IzMFxlcGljWHNiMzAgDQpT aAPzcG1twxBNPPowLQVlO2 EsifRqEYchHZNauw2nzFml IGxhYmVsbGVkIHdpdGggdG snQIXweRjsibLsG2H1wiVf JB2jAUYTZQFtvT0mHAOqLU EtOMMtGOUraN5hCNM8b4Gr riAnHUZBPBJhlShuRO84qY BjZWxpYWMgZGlzZWFzZSBh xjMqfkAij49ikdEsa2UrYL 2knDxoBBcSGKsyAgCrWU5n FTXxdqWlg1AsGH5lHYWjoE SwWIFqtvcuuMJvBIc6sTXf RCAdKwAovGlgk7DyRGTaBU zkCS39kbWwFP3uUCimUM6d IGuaPS9sWWMkWDRkISMxHj YswDCvOjEldXYpTtHzN07f ZhPTcIQtz2KtQ2koKK8bzI FkOwcgbOUdXZCxcDrcu0Js sDZpEFWji7TvvQCjXUfwZU 2iSOM5Cv4daEEyIGYqngT2 r2JcPDceTXDgXvtwYVQpVA xsx7FvBOOfvMUVu1HcFE8R XHBhciANClxzYTMwXGVwaW UAk0RfAOLNFabzsYnaOkYl jLAuMeN2POSouTEeHIS2KV 6yfYqtFDAjHDl0BIlcZJNs C3CcK5RnNGyuBdBnLDcaFQ GuOUEuZUmmGDPhQ2CFOAMi VHX9PyKkNQAqDOk8XNjrF1 PVNZByJHQpRbJ4CCK7HtL5 YIj2ATJJSj3hKIguPeFbON CaKaI7BKo1BnVhTJPmFuBe ATKaVWDqHWfkrTPhID9hmF zzGIErMZNhOTE5YVIjkJTM l8KbNBRdWJtfQiMxQHNEAI GVSV3TNwGMLBLpKiCnaVOj MD4KTNGqbkKfWKhznVgegB 2acMGjN3iuWdQdRjzqvKzk TmVzdERvYzEgDQpcbHRycG FyXGxpbjBccmluMFxzYjMw YEZpaDTNs8FzYHGKKuYoII NpbWVuIEMgaXMgcmVjZWl2 GKYlkQ1nRh7bpFEvjR1yzI BfRSckHMDjh0k1yDN7jUZz sBQ6tAXqcBgaKqXvYI6fuG EiHBTGEI76zHOvisOeJAIa kT9yUJRgQJPePQR9czniNZ XLSDN4jDUit3F8TMxhCTR0 jF4ciHzfYcNtY4E0GWAqHU Vao59caQT7ccKmUgVtMXSo gk1dfJ0pHIhhinFjkVzaua Uvv7U0DRSvi6P0YTCkruAj cXSvbDCtAHUwRmM3IFZrTz Y2URApUMKvmISoEAKrRS2b VGhlIHNwZWNpbWVuIGlzIG PhoCOehiLuZXCbsv65W5ks TDGwmS2zo4lhCdRuTDIyOX VztIQvwVV0PQChnG5fdP29 nxPuvxTDOU4yvUGvLA5GIP NiMFxlcGljWHNiMCANClxw QKFiTSsju5LaPSesnKdaST RzEcGwQHbUxMrjEJKIE8zp vDDkCVslFUETKSgJV0OIMB 8NDHHieSVOCYB9EP6tGPqi SNIgE4RhT5CjinA3o5uwgO efm6FgcUKwFM9ryIOwAT9L XHBhcmQgDQp9 Disclaimer (test code = [id number]) w8mbbZJbCAWhu7qlOXFquY FuZzEwMzNcZnRuYmpcdWMx OOgzqsZwGRcpa6JxG3XrAc AwMFxhbnNpXGRlZmxhbmcx GENqBKY2elXnLILkQVdiCR SfQRprMu4ccRUmzUftVvPb FSXtb4hglcONWPjtBiQuR1 50BDCeNRrqf3wgr4TxTQVs pLSib7T7OIAJexhleRq1hX zwW19ve2I5PbatT1gpQVTw GUAjG2CpMT9fVASlTov3FI A4QFO4KPWwJUNvK7LaMF4v LNBpnSNvJDa3y2oskDlmBS ZsCGL8y0dkKVphboPtGH0s jp9loZr7y9xobaJnMZUkTQ LyfZDOXNWmG6PsjIfdFz7v nFh5mAllImqnZFJ2Btx5BN 6xqc72ehs2qTnpWAUnbtbi IfA1ELpyOLPvfvalGLm5UM leELInlCI8JQYkgGFxI4Zv ZYRmMG2llql0TYR2JRorFC CbNgU7SRTxfEPgWDMijCxj LDden864ASP0UhWjCE1dK7 Fap6R4tT8gsHLuSNZhvTCf QyUoCZChdn0slMTzQSfph5 SrDGY5gzG3aUWxqBXuLBHn TK79Iycsl6BwIwdqr4ByD9 9xtWB1ATqel5fbMN0sVrU4 omJlHObxm1nigW6pMwZ0LM irEE9iJX2iUFKpeB3yegze XHBnYnJkcmhlYWRccGdicm VzTz2ivTwyUGN7EWohQ9uq iF0hNuQ3XRiuH2frnM1kID y6CXtvuAR5JFPwcS9dZT6p qvdbc9foNKjfPBlzFHSopk X7daT9HFVpxLTeK5AsjF2w FOTcOI4vlqqhm2bfWLN9YB yiATEkSMI7OjPvUBGer3Ms usv3HqVbm5RqnMNxLZxvI5 2dh591WLQxefTzE2tzsMVz nnnpmGQstiklFIltdmO8YK OscbAai8FlZTNgUOB2DMvt HFjdmLZpSIKmjUfxg7bmF5 RscGFyXHBsYWluXGYxXGZz MjBcbGFuZzEwMzNcaGljaF xtRWmwNkEcNBTlJXuhW6ap RxThK3PpKJIgJzAtoYAnW8 ggVGhpcyByZXBvcnQgbWF5 EKhdD3v8FRDonqQpqAi2yw LvImYyVVCvORO9DIosqXVv WCHpi1WjqwowjMJaRo6hqQ ZtXYPavY3kIGJqIPEzUNok NY9cdKv6GBUHiDNkiRZzQa PGNPDjCU51mlQePDLWgwjt u1F9UMooPCNvb8TpqMUxI6 ztd7YxIXKgs58jJU0fp6Y8 c1zcTOV6ZI3ny0KtGUJsxL MphIScVGDmy7Scnhxex7Kk CJXygoLya0QyUCRphoTlgI AlZRDehhJxdy6svwXoNSWn WSJbA9WrfvtibHcfqmUvAK Zwte9ckoWiYQC8GDUSZFUh TVGsk3JdnJ6yqAJQGIV1lU Ojns7vwjWLcTFmSPHmml30 IHXpRZ8uG6lrZCRwIFKoav AqfYSxb3IoGRCmeKK0pQQv YE8LNtUMk61zHVNmQDBIbf VcEUUrxLturAR7ckZ7tH0m IChGREEpLlx+IFRoZSBGRE HgMR1kecGpm9JcojDulEjy AZWilFRut1YdzMWft0HpeH pdx2BeoJUfnRXmZR0vHMIs clxwYXIgVVRNQiBMYWJvcm R4u9ObDWMsLMLlZGY0hZso bqm6JJHppD5gQUOwR5sdqn fiQTxlGJJoj7XsqR3gzSAG vOImk1JpgHRgpUMDePHoND 5chuOmOAeXMUzILVF3esMq BLImq7FbSGobH7xpD18xhZ ngrVh3qEQ6YMY0eM0gJvw+ IFxwYXJccGFyIEFwcHJvcH ZkJQRxgGcghjUvQ5VwzqAy sJ6stPRwliAzSW3gJW9jY5 B9jDWkMNBtfuWqs5hyOHfm dmUgYmVlbiByZXZpZXdlZC Tcc3OcUUebFTS7BByjqzJh bmNsdWRpbmcgSCZFLCBTcG GmuUQmIZH0JLizefMrolHn LG9ywS3vuLqpyW8rdLNpwD B0jhnqXUXsLAMgyJbcPFCp YL7fmBgxiC4dXxXyTdUjSJ tjGE7fRWHaT6niaVWmETRp RLXrY9gyXyKkrW3xgLzjIB xjZjJcZnMyMFxwYXJccGFy XHBsYWluXGYxXGZzMjBcbG FuZzEwMzNcaGljaFxmMVxk NcNzDJPpHJtsJ4ciSnKsH4 SmYJFpGbTqcVRiD9xvUJcx PHW0QPZcWB1chUKaGZ55iX Tpz1guGOvonNhjxo6dN59f rUClLXzhfUekAYGqi30ew3 JwACFrewQast3wEBYlroJ6 iJ3jWZKgoNbeABAcuZNdCK Pvf2WzZFtqyAMkncWnJGgp LLFyCPZjyVKwomP9ruSprn HgazFwGQEwbRjnFCZmt1Ll OKYcVCzti9Ugjl7ovCBbDW AmcvQFaBnflZIzeY5lQ8Kr OVAtPDXboe2aIPQphC8bGM rxm4VcefheDQWwLGYkLUYx dkEity4bPEOnpEMOOM4GYH jrnJHps1OupbZuJ6uLLEO4 NUQwNjYwMjgxKSBleGNlcH ZdRGJdqo06BALkyT4hcBdk KTFmvZ4bnS2bdFqnnL9iQt ZxRoToFBwjBQ7cYWGoQ7fy aFTqQGIwMEJmH3utEbGacX 9jaFxmMVxjZjJcZnMyMFxw YXJ9fQ== Embedded Images (test code = [id number]) [id number] 19:23:05* Test Item Value Reference Range Interpretation Comme nts Case Report (test code = [id number]) Surgical Pathology ?Case: [id number] ? Authorizing Provider: ?Dominic Keita MD ? [...] HPylori ? Final Diagnosis (test code = [id number]) x6btvHDaQXFvv8tkRAAhhT FuZzEwMzNcZnRuYmpcdWMx HGjnsbVpXMoylQrrQYH5UF AaIM6bbAcsqAv4tQapHFFl osM3tPDjUXgnk0cmEOB3n7 gwqngxQUDrGJicRn7nzLOl wNxzIfLcMNFhLFd4kK44YR GcqV5vcRKnMXz4ZZKswDYe hnQsBsTwBKJnhDHvmGZ7BK WmGN8atsevLTbuHBysVFGg opP0PWKnkQXzW0XlCCYaAZ 6vseenSXD7FFspRUEiUXZ9 AgXoYJLbk0Gvebw1YjFozA FyZFxwbGFpblxmczIwXHBh haJVRtATCI5YLKACDOJVE2 hEBAGWJN7IRRTVRalriGKx UWGuKAAtBLNZBO7VZOAoD0 mVPdTzNA2RDKUaSBUxpFQy BZClpsNEPgYAJT1SVT1DKJ wgQklPUFNZOlxwYXIgICAg AELzMDxNS8KWGWZvESZUR8 RJZZsUTJgaJt1gQBLZYF4B F5uZI4ENIJVLNI1DCFroWL ThAPUdPRGhMA8QVYmgAMKC KD8JIQIYOLGRQEeQBACDLA CFNYyTQLVKU4TDOTkIQSVr wobpBODdRj1gX9RNUQWNBX wgQklPUFNZOlxwYXIgICAg WIYaMGNAY1BEJnNISM5ST5 9UXYFMTUKYYR1HLAXEAZbM HW5NYXHJZLYSXLOIW0TvmI FyICAgICAgLSBOTyBFVklE ZK9OPXHHFrCFKItMNMAiHB lTRUFTRVxwYXIgICAgICAt ZG0WWExdZJPPUT1QAWWLCo dBTklTTVMgSURFTlRJRklF HOQHFYZATY5YVw3NIWLSGx xwYXJccGFyfXtccnRmMVxz l0FgR4PuWkOgTRnozkViPW NeWxjkwlnzTTQqLYW2oeQe QMJlTLncGUTzDLfcCl3ewM NmuAcfGzTwZZXqh1mzyfDL TUqfWwIqG599XRAfFXppw2 zhb9MbLUCygFWzy9R8UCGU oriicVr6w9cmBgXsKiX7nS YiPCnnL8cmwfGjdKXuG1Ef hCWgwMd2cBoeE72fm3S7Cf bvY5flKPQgLKQcK8OvDU9v YYVqLkv7SBK3NEM4HNKkKV CpK9CeNW3sNSNnxXUgUOl0 p7quvBqhNDToDAE0a7fiLN mcmdG7AI2gkg4hkZm6w3tx czEgRGVmYXVsdCBQYXJhZ3 VokXwmOm0hvKl0mCreLkrv HWZ6Kdw5UT1opl55cor4kX agPSXdovjlUwF9ZRuoSJAv wqifYVd4HEiaZCBcuQK6TB FyaSUyX0JmEINrDD8tvaq0 NUJ0OTnzGTMxBzZ7UOBkrX MoYPFpxLefOGsza341VOB8 QyFeHL9iH3Ilw9K7kJ7dzJ IrXOCehOYiCaBgYLChrp1b bCUxHIikd0WdFPE7epD2hV RwgMLmPMPkMP28Wfnhc9Ob WnbqHHJ4RNAegnPbz3Lrw7 sdMpIpexQuR5dkU3JtWJMl OBPeHZFsOzOiijZmd9Snx1 NmgYEoiOd0k9soGRWtSAAn dTtzm6noRXT6FLAqB3U4bN Evp0zpPUvcZIZorXJ2wlG9 CQJwkKWrM6JefS2kTDRtLC 6ukdf3o1oyNSF9CJdlZKWs IfI6ecJ8LUBcvINvIUPbwK udEGzsr471HOP3OlJnJWBi j8FcS9AudNnyR88pzSwyB8 6bDPUvyQgirM3mzYqwyD8d ZjBcZnMyNFxxbFxwbGFpbl xmMVxmczIwXGxhbmcxMDMz EBzcC4vcQcKvOCVubVwbOC bnr6UfCMTyPFJvThshnaPa XHBhciBJIGhhdmUgcGVyc2 9uYWxseSByZXZpZXdlZCBh uWoyh6XvP4upIN9eF1JoeW TngzYdtyEyORpqPZTat8r2 yVAkgRghe9HjkOHxDW88yu BdATOkYDW0CYGft5tmOQ95 sssfDkYieE80jnEkpxOfSR Aif4jhJ4qisNWdj7Hlg3Rw cuRmLXquq8JdJO1jhWWook zmjWO6NQMobARaidMoznY6 nYjyRKUovL6ebO4gsSxycY 4lFjAxZzGrHFrxUS6bWARq T4xqkBSiIBAzLSHbC6htJk PzsN0vtBdgPydltqC9ZKMb cn19 Clinical Information (test code = [id number]) Shivani Schuler is a 47 year old female with IDA1. Gastric polyp x 6 r/o adenoma2.Duodenal Bx, r/o Celiac disease 3. Gastric Bx r/o HPylori Gross Description (test code = [id number]) r3udjLSyTWAobRXPMOT3CM QdFR5bcAxtlZi9nCflJSZb moJ5vQWaXDgax6kqHHH5k7 tnlwCPFtooRLKtJR0aCOra BFJrFG5dSjOqHBOiZmPoSU BhcGVydzEyMjQwXHBhcGVy gJY2OYErTU2mglklSMjaDK bzRNFxjjL9SIMjoBZmM9Im ETVbZT2zavzuUFY6HAHUEp cmIq3joKJboRnjPmHcSnGe YXJzZXQwXGZuaWwgQXJpYW d5tF4KLlflXXZ4CHRYXupr MignrSlcb6DdyJBtPEPmKL xcaWQgNTEwMDAgXFxkYiBP QiUeBvN9Fsw0ASU2QrR4AA t0WEENZLOoRpmjLBI8HzB0 ULj5BFAjGZ3sPUhlyEHbYR dsAhdeSJkuE862NDezCDVw T8FhF2SlAHwtZeDfCJibEB EiDYMrJSoxGHEiM5LKZLEm RMZ5LyTeMICbMPq4SSdzS0 CNZDVaMATqPvE0YEIkGdH9 NIh0QXAWXw8uGXcvOzLdVW d6VRU6CUe2LnKzHQQtVwXl CPRcCQCfHHgfiILeHE4vqT vfTQMfMK5XCIIrKWqiZHGc YhCmK8EBE4oPNX4bZObewO JjaFxmczIyXHBhciANClxw CWFjWK1VXQQoWJfuWFv9tu IhTHLtEwMnTAUjA17we9WP i9CiBO1BZHs8tyNkytpatK 8cNVLtylZcRTdCuVSzlE4i sjMCLKujDDNcW6CnulWoYO fmDGNibh8eaZygLNdeKyMf bGVkIHdpdGggdGhlIHBhdG gaxyKuE6S4vsKmCO6gUHXP YILovG5oXSVxOYPmx7CewF SzsXvnB2ZwqLAdAtSba4b3 aWM0ULFziyZzSLMquNEeZT Pcoq9iIKtoZxPsI9V7EOLf DUJeo86csPK8aeZyOhFmiU r9xFJtQNT3PL4vjRykexTr z7t4mX3qBUKbf5L0IJWce8 F5DCTmleSihABudLKwAKRd DE3fglXlDN81IXVfTAgyTQ ehZIJ5FVK0GSWgoOPft9lo ldoxTp7fTDwyUM1cGEulEQ 27XWBmOCfwQNXnU4EnX6Q3 SYslRVTwPMKyxOCkxY0icl TfzkUsxEj5OVHuJYH3dWQx fBlsIZXzDwygoEZ6HEMwXl CrghAhy7PlkPd0dAZyIKtf UYQmoG9wpK2zGSSrLAZajb NRZrhsCMPsPVgem1QyINkq cGljWHNhMzAgDQpcZXBpY0 6hp7JHs7Zbu9sphFiuv8Cv zHQoSW6doNVaCL4Qx4fmHB HwgLVqLHM2JXtwo8brDBwp RDG0CKZoNvUwADJdPJ6KJc FrCTtaHDg4OTteWEf1QIr2 LT6BGcAeCRVfXsc1MjW1Cj CfUCs6FQadZD7EQFP2WUVw THDwSFmjIDP3JJNlFOa2UZ IgXFxzcyAzIFxcZmwgXFxu L37ngMQiWAewUxRmPVcjhQ aaEQZeLHV8HY1BQOJsHrYc U1QXP9qIWU0sJquxvyDmUZ HhpnIUQitpOWTyXO4JYYQr RUusSKz2enCiJPClIeQmCI MsB67zc7VOx1PkRR5MCYp8 ywJvphcprZ6rHPAygnLym2 IzMFxlcGljWHNiMzAgDQpT eFYlwY1cizXKKNyuQYUtV1 OlneCbCCteUNAgno3sfEkr IGxhYmVsbGVkIHdpdGggdG uwEIEjsCppnqEuJ5V4blXw NI4zYIMEFYXcqM0cHVXpZX GmVHWzBSZxrY7bQRB3p9Fy oaNyFNJPDPHxiFuzRJ09hR BjZWxpYWMgZGlzZWFzZSBh raKtlkUhl59uycTtq1GsGV 9ycEkwUDaOAUbtNqTyAO1s AQRpewEqi1QhQM3tXPIxvZ BiBOLkmaexgJRbTPp7lRIo OOUwYzFgdJqmq8XvMMGbJO laAL53yiYcLG5dBLqjDL2d ZNloMT3cFYNdMLLwHEMnWw FmjSPhRkConSAoXfAwI56u TpPQrBUed8HcB8jtVW8kiO AuOupmoLDvSDUuuJpsq5Aw nZXiAUOvx9FanQGhLOcaVF 2yZCR9Jy0jiNQfEMCyaoV0 a2SjSLudJRLvAgtsWUZlMZ ybr6CbPZCgwQYRf6JwTZ6E XHBhciANClxzYTMwXGVwaW RZy9PwKFKXCqhjkQizNsAl gGDhFjD7BJHwbZXqNJU6TW 7ipNkvFIOxEFs1PBasARZe H0NvT0FwBHqiTuRsUMmdLX IjQGZoHUfoICCgB0KJZSVr BFY6QtVlBHOwNNd7HDyfU2 ZCTWTzMJYoTuQ4NLW4YxD7 XSl2CUHZYx5vSZelQrUvYC OeLxX5GVt8DcMkQGSsJfFw XDCqDNSfQWkeyXUsGH8fhG lnYCPtYZDjMQG8RIZnoZVM u6ThFCCwKBapUyIqLGMDON QXVM7JScGRAMDoXwZxsCRl OS3PNFQnkrMbOKyitCbauT 9umXWvV8mxOuYdXwnjtSva TmVzdERvYzEgDQpcbHRycG FyXGxpbjBccmluMFxzYjMw GTFogZRIt4ScKJQKIaTtDD NpbWVuIEMgaXMgcmVjZWl2 RIUrwT0pJr5jvVFnyI8ytQ OnRGapHXGgr0b4gFV4cEAw cCX4uAFhoQzpEwRaQV6tmY QsJLQUBD49iSZflrCqSVAe aI2kSRVxUINdLRO3ejwqWI FQVHO2lGIht2U9CUaxWQI7 dK5lvDroKgOmB8N3LJJqGA Kad90rdCR1ihJtTdZiOWCj yi7kxF5cVQvscwYrgPkvhu Oct1F2DOBai7A4FSVyrjEf tVLzlXBcTBTyVoD8RXNfRd T3KFGlBWDvbEDoMMEyKP9s VGhlIHNwZWNpbWVuIGlzIG BktVQtzcVuCAWiru59U8vb BUVttA7bu8czPbCkCPLkJY EeqHUxdHN8SLFqsI9fpV24 lzOsfzILXR9xfFYhEO2CSL NiMFxlcGljWHNiMCANClxw TUHpEExkx6ZmCPzehGdsMX MhFoKpTNrNxDwqUJOOX3vq yOObJOcdJYUULVuAE2KXRG 4HSBLojRMNSKS7PI2wWSyc YVUjH3WxA8CchiC0x4xcdP nhq8OzfMIaZT2heOLuWZ8W XHBhcmQgDQp9 Disclaimer (test code = [id number]) u3zrwKSiFXXin3kuSEEjnZ FuZzEwMzNcZnRuYmpcdWMx KQrbweEhRIuxf6NpQ1YhBd AwMFxhbnNpXGRlZmxhbmcx UIZbIQO2teZjAWNpLIacXU KrOTbsSc6odVGtcSsrZqId MBFom0mliuXZHLqmWnByD6 17XVRdWRjos9sze8GzKPMl mHYsn3A0PTIOzsankXc4cI bgY51xi8K1TxlgI6lxILQa CQLhU1HsZT6aKEDaFlf3CB Y1XXA0DDFnBSAyT2DjQT5a HSTzqGOpVXg4f1wmuQwiUX MgMCC4k6qjIFzpblVtEQ2k xu0jpQf2i1jfqpPqCFVlHG SjxGIDAFEtS2IadMmpRz7g zMn4cWwkPfudLWI1Tgj6JJ 0rbm96eec5cMnnYEGgppct TvH2NCriHQNnokepMVu4EX xnZCZepEV1HUBlzDJiR3Wc SYRrTH9iywu0KPL3QCktJE KhUeQ8VLFihNAaJFPqfWqt BZfmm886VZV7HdUdAR9gG7 Fod4L3lJ5upVSjVUIhrAEr MxIwIVWdhd7woJOxJKyts9 JtXBF0hyC9eIAewKZiYRGs KP79Uidmz6AsNslgx3TyW6 1pyRO1KAivp4qxMW8gEtN7 jwOpWCvdx5ficP6xJlM4BE taPU7jUY7yJVZkoN5ykibm XHBnYnJkcmhlYWRccGdicm AcPc1fjVaeEOX8RSbtU0us bV7eYaM8XLziZ5ytmY4gJW d3SQcocVK3ERBibH9sDF3c oenmn0jwWPmlVHsjFUTbzt Z9kbZ1ZEQyqWCcR1TvjQ5l JDHwGN1sfynoe6ahHPT9CK oxNAZcWJX6YsSwYBUcf1Nm rmr6XiMmn8NdyXFgXBphS8 1hf055EKZcujQlD6pblWCu yvxkbAToaushHNpfjqE4JT QbmnDuq8WzOPCuNUR3VVtt VAudnUVqPJFacZdfn9cvX5 RscGFyXHBsYWluXGYxXGZz MjBcbGFuZzEwMzNcaGljaF wcVJysXpKzUJFbUMhhR3ks YbYyL1PtUDRsFrOpgZNwK8 ggVGhpcyByZXBvcnQgbWF5 EUjhI6x6UOXxicMvzBd2mn VcYrPlAYXgNFW5MOqxnUAv QPAbm9EolbzexBPqFv8duR VaQFQyeR8oSHJpIRDaVZzc LS9qlGe7FZGQjYNcyYRrKw IUANVpEY10ryDpKKWSasdw f6I6OMyuWSWfd5WppZFcL1 eel2TnMQMtu01sHE4ln2C4 j8xgJLF1KZ2st8RuLPMjeY WvzNQdZYSgj3Tvlwlpi1Gr DCAdwjTnr9OsIPUugtDjaJ SrZGJligXzdr9yzzUjXIEs TMXyC6TcpbtuwOuokeDqDJ Enja8ohzOyUVM8BQWZHIGm LWUuc7WftB4jyMMGUMU0zZ Orvn1lisBSmTUmKURfdx52 RJDrHM2gY0pmUOHeXSDjto CifLGob2PsRPRixZN1rBZe JW6PBaXYw09oCATuCSQUvc QbEORvmPyhaRQ0vtB9jI2f IChGREEpLlx+IFRoZSBGRE ZyBA1wgsMqw9ShmbYxbXps WMVxuMWjh2KzhBSwy5EqaD lqv3TigNTpeZFoEX6kBYNs clxwYXIgVVRNQiBMYWJvcm T7j1DvVACjJHVmAWT4gHxk ool4NWEkwH0kZBIqO1ltdo ozAJtuYFOci4WclF6qfTRE xPKsf0SjhWJgdVLDmGRkJE 3phrFpQCxVWOfBEYH0mzCt DDNek2LjTCidO4hhD31zcC sinYo1rUJ8YFM5eV5uXiq+ IFxwYXJccGFyIEFwcHJvcH NnGQFvaSklkpOuD9HzbwHk aE6vtQXaruZeVF6zLI2rV2 A5kRSsZRYgltAyp9jxHUhs dmUgYmVlbiByZXZpZXdlZC Zsz0TdGOgjRUC8IKrsnkTr bmNsdWRpbmcgSCZFLCBTcG SnbMHpKAB8FCqwcpNdluQw BE7gsL0goUcidG0qsFNyvI R4njcqBRFiDLHthKqxXVBn IK9crDlggZ6rFhAsEjYhDT ytSN8uOYRwV0vziJOvXHOf WNNxZ0ydYoNqxN3qgQeaHE xjZjJcZnMyMFxwYXJccGFy XHBsYWluXGYxXGZzMjBcbG FuZzEwMzNcaGljaFxmMVxk LwRpNKUfJFrfB7mbUdFyE3 ScFJUzIoZodPFiK2cqUNks WHD2CYVbUZ0pmTEmXE59qX Ygj1slKPgbmUcjwb7zB39q xYZnMBfsmGeqLJCsc92ul6 NzMTBztsGkpw3hVMOnhqU9 vM0lNCPreIguWGPfrZPpTX Plt7RqCKbuyPCdmkJeOGag KCTrXLQsqERckxP1lbSmpn NchzUeUKMfbSdqZDDax8Pq CABzDLvgd5Ddnh7buUUwHZ BckeZRlKbzfSSavX5vH0Za VAVrMXLtte4iOTUgjB5zJQ hnw1XcojrmRFIzSGDbSVDe lpVrmb9tZWKlzXILEL3SJE wsvAQbx0ZjimHbA6vOCOR3 NUQwNjYwMjgxKSBleGNlcH RvAGEndt25LQDncW6cpGbh FKRunI0ldR4moRcvdJ2uTz YjLfOaTPgoFR0dERIbE6we lSDhTZXiLYHqI9rsOqMhwV 9jaFxmMVxjZjJcZnMyMFxw YXJ9fQ== Embedded Images (test code = [id number]) [facility] [id number] 19:23:05* Test Item Value Reference Range Interpretation Comme nts Case Report (test code = [id number]) Surgical Pathology ?Case: [id number] ? Authorizing Provider: ?Dominic Keita MD ? [...] HPylori ? Final Diagnosis (test code = [id number]) h2wqmHGoDGLeu5vrAPDbzB FuZzEwMzNcZnRuYmpcdWMx UFmpfuAoUDpqbDhiJZL3XC OmGC8lxFuxbOq0kPhkFEHs aiJ1oMXjIIepv0adUMF2y0 pijxrxFMLbFXjhZb4dvXEc xFbjVxNlZWWyDJb6iV61UN TscT5ubSHeISj3RVIxbOCd xcSvTqLtJCGimPKzuHG6KE HhEN6vzvmhCOkfRKmbIJTc msD9ALPewPDnY2XdAFKdJF 5roccfBZE6CVmyCFCrMVW4 ZzYuVXWye3Rojeh3DaLufF FyZFxwbGFpblxmczIwXHBh zjQGQqHJHJ7NZCEEGXQWH7 mCGSSUKB9MPQXJPtdkgASe HHJeAZZzNVHRQU1HPRHmK3 mZNkBfCU5APHBkZVDuaZAl QTWhfkTWQlMHCG9FKO6RGW wgQklPUFNZOlxwYXIgICAg UTNwVEbUG6RNPVOoOMLGF3 KFYWlNJZvjPy2wFKHLTP6V K1gDY5FCOKUXFP6TLOvoTD LpIDUdPZIaXI8GEItgMPTF OX6ETAVFMDPIZYjLUBBZXP LKVQzTGMOCH3RCDLlXSBRg txyuJKStMn8cN1AZXGSMCD wgQklPUFNZOlxwYXIgICAg DFXoBKMJD8SBKuWCWQ8SZ9 3ZNYGIAMFDSZ6CFGEBYYsQ YQ3FFITNQEBZREQVM9NmhJ FyICAgICAgLSBOTyBFVklE ML5HRKCGZcWWXQmYCAEzOS lTRUFTRVxwYXIgICAgICAt CQ4OWCbjOPDCGP8GHHECRe dBTklTTVMgSURFTlRJRklF CRTTQIMDGX8EBe6EZSDGHm xwYXJccGFyfXtccnRmMVxz f9PyI1ZmXvXtVZohoiYlTS CmItmzgxgiBSVqJKR9bsXf LHYzMIayFFAkLDnjPa3iqK DvyTtjEzRyHVMod1fbuqWH HGkuLpUhV004LYNsUXcgh5 phh2NcRSWtwWFls7R6IUCM ztiwrCb6m1zeJgEcZbR1hQ ZsXEgiW7anszPszWLjQ0Ed gCKgfUg9tRvpK43fe7K6Be nsS3laIMSkXDRiJ9XsXF6y CKCcRiz9KPH7LIJ6JLPfOT ThZ1GgSK4kULTiqCRkBRx2 a5xvaRhbHIJoZXV4p3qaGB ttnnW8NO8oma6gsDt9s9pj czEgRGVmYXVsdCBQYXJhZ3 VxvIidMa6iyVj4aAobAvex BNB4Yjw2UU1tfo66bhu6cJ jhNIGfhimsZcT9YVzgKRPx cjlqEOn9NGsaEPKfvNF9EN UllYDzC6OyPFSgBG1akfh2 VXJ4YJldZZLePxH2KUHojP ZaIWKbpYhdYOzka535QOV7 SaQuTJ7lC9Zcr4T4pQ7psT XoZXAelRKkZaDdQQBlph2t yBOyUIeic9QnHNM7xzG3wP CysOIgRHVzLC85Thfcb7Hb FewbJJF7ODLrddQhb4Ufb3 fqXgCxnrGfX8shZ5ViTVQy CIIqKDCiXeOhmeHxt6Wwl8 VehFZhdWs1d9msXFGuYMBi yKwld3qzDHX6XHKjX1H5pB Mpu3euSMzvJSCwlOL4bcS9 NWUxyISrN2QttR1eWGNoTD 7uxcu9i5ezCCY3VQuvVYLc OzJ1bvA1FOLozHYlHECpnJ emTNdyo696OQH4LvZeJZIf f8LrW1QxrVejW08cmAqhF8 4gGVFnmHhixD1lwVrraN6x ZjBcZnMyNFxxbFxwbGFpbl xmMVxmczIwXGxhbmcxMDMz IWszB4mmZkKnYPPvkDjhVC luu3IdAEUeDOXiWdznftPz XHBhciBJIGhhdmUgcGVyc2 9uYWxseSByZXZpZXdlZCBh bWjsh9CkK8iwET1cY8AtzO LvobKqmbDeYXkpSXKsp4b8 xBSfwOinu5SjvFLiKF36na QhDMNgZZA2BEMvs9pcAP89 pccxLhXbtB84lhVgqhCsSX Guw7bqK6stzFNkj9Jox2Pb ubFlVKoyc1MxTP1npSYmrx lhmGA7MWRtdOZftxOrvlX7 tOpxVOTcbK9vgO0keAryzK 1rBjXuNfVdAOaeYD9rWTLr W2yomKHiAHWjQQAoB9quPe CqpJ9xiYehDsdbemZ3URSx cn19 Clinical Information (test code = [id number]) Shivani Schuler is a 47 year old female with IDA1. Gastric polyp x 6 r/o adenoma2.Duodenal Bx, r/o Celiac disease 3. Gastric Bx r/o HPylori Gross Description (test code = [id number]) h6yaqPOpXSVltVPBZGE8BM DrMV5wkDirqQr2pDdfOJYq gyU1bDPeNBnkv6ahUWP5u7 ntjnOPGujxQSSzNE8bPZfm VADuHV1aBxTvLMLcRlUmOF BhcGVydzEyMjQwXHBhcGVy oFQ4JHNoHI1wefuyWCmjGZ htGVBfjdL0MMDulJAvY1Ji WMGcDK2cywhlBOV7KRNUVt tiYz3knTXwtNbmWtSiGxPd YXJzZXQwXGZuaWwgQXJpYW c2cD3CYlguUOU5WXEOUtcp ZjuyhVqat9FysDQgMFVeKI xcaWQgNTEwMDAgXFxkYiBP MqHaHvA8Gmr4VYD6DtG4CL d8OVTRSSJlWccbRDT1SeR2 XTq4HYDcAQ1eIUqzgMKzUY ycRmovQMlvB475GKjkMREm P0UaJ1FpNMxnTgWrASodIV ZbZSPwXKcvCJDgI9BUTVDs LSL4PkPyZYZcUMn6HCxyB0 KPYGJkDKExZtR3ACItShA0 FFe3UJECIj9kFWfmKxRyUQ k9NUF0AMr5TqDwSLUjVuTc HLJpVWXnKAjvtKOeTV0reT whAPObUJ1KCOIcUQvfTEBu AfTxN9RVK8sLHV2lZIpqdG JjaFxmczIyXHBhciANClxw UHCmYX9SGEAlSFmxWVt7aq VrXRRoNeOcVOJtA76zv7JI x1ChKS8ECVj0cwTgjknhgD 5aBTJkrzExLFxAfOAvaT6c ebZZQUqdBVUyH2ZqpcLjOB vbXFHpic3saAdkJEijPpKk bGVkIHdpdGggdGhlIHBhdG kjbdTrQ6D0icElXI3cHFRF HBCdwV8yFEYvYFNia7EtjH HxxBvjU5LbvPMkDkXpf0c0 xET9EUAvifTvGGVfgPHoTO Fspb9mIQidOnQeR5H4ABDm TREcb02udRO8dwZxXuXiiQ v9xXZnZCH0LD0epLswyyFy r8n3jP1tTHSfm2R1XRUqy5 P3LAPmxyFpyWEibZEpTXPe VZ7vggYyCZ19AJCtKKlnKJ bvMKC5HPI4XWMgdZXar4kj ndugCx2hHDbkZK2wTEyzMO 76XVJzDFwsRKCdS3LmD0K9 DEqnTHUxXLCdpWTvoI4kes VnfgJsiXy5HCWlJOP3sDSr uEojFLEdZwgiaWB1CDAdQb AgxrUms5WkdEj9uLMxOLly IJDobK8pvS5gRGNgGFZokl TTAnjfHLXdXZarm5SmLKja cGljWHNhMzAgDQpcZXBpY0 9vn7LAb9Tqr6iscZibo1Yr wVIuRG7ppCYhPZ5Ec4pqWK JiiNGsEHK2TPbet6okWEtl GJQ1AACqAsKkCRJfBU6WQy JzXSdpTGz7OBkcUEn6XLy5 HJ0OQzLyQSLlLxz7KdO9Sy ZmZUo2JSysBJ3XSRE4MHJw JXJcNNufHAE7MIJiOAv6NK IgXFxzcyAzIFxcZmwgXFxu A32onHEsLEbvUfZkEAzhdX ddZXYrCGS1IY0IKKBkGwAl F7UJV0vADQ2cNzsfvnDmPF KvckHGDhtpLYFdKD2QKZAy CZofYWb5ufOoNDWuCpIaYW HkU71el9YNr5EkAZ1NIWx6 baTbsvpnnJ2nIRZnnoIrm2 IzMFxlcGljWHNiMzAgDQpT qEUkoN7gszZERCxdAZAkH6 IjlcXdZLryMSYkwz2srBcu IGxhYmVsbGVkIHdpdGggdG leSYRkyLwqbqNdR5U5mgUr PA5nANFHRCDyjQ2nZVAxMW VrPRJlATAelM9jIWZ5c6Xk vhAcRWUBPJSoaZheMU84oS BjZWxpYWMgZGlzZWFzZSBh gcPeevFmb90ueqFmt1ErRI 8kiZkzYIsGUQnaIbDnMW5a OSLnzhImh7AeMW4qJPFvbJ RvGOYjfaxkbJJmVXf7xHDo ABEpMmCokXraj2CnNBLnYB jjWA25qmKqER6nPOaxAL6f ARgwOL0jPFCpSOYzOAYoBd FdvNMyXtHljXEeTsHaC66y WeTKzNBob3KbF9dmSV3ckS BtWrvduPXpJAJxhCebt8Cm zWCwDEYur1CctOMcRQvfRU 2aESJ8Ly4fgIXkEFCksvN4 x0PmPHsvPCCnRambTFWgIJ crq6PzRIPjhXDPv3ZnLG4K XHBhciANClxzYTMwXGVwaW MOb0OqICVJRtbblQkcGnTa qGXmVkH5AXFroMSfPGC9TC 8rbLhsMOJgXPm3RXisOQUq R1KaP0VbQZjbEtLrIGrlYE RgVNCoCFpqAULbI0IJXIWj ADV2HmTnFVKtAEh8BLtaQ9 ZSXUPpQVCoVsL0KGI5VbM8 IHv3APABWb4sPHapLyXqDM UzUlD9QBo4JwYvYUOgYpEv HPExRYDrFXgxpBGhRV1lvK xgFFHpVGFlZLM1DCOcuKXR j4DqPPMwQFlkMoKkHMPFGX CLLI9DUmJOZOXvMuWcvOXm GM2QBNAkfpMiIZvfdJqnvE 2gsNFlE0xqIeXjUhjmkKpc TmVzdERvYzEgDQpcbHRycG FyXGxpbjBccmluMFxzYjMw VORgrPRMf7YyIFDSCaDsQK NpbWVuIEMgaXMgcmVjZWl2 NITizI3wWj6ioTWwkI4okD OoPSlqHNCbr6w3aMV5nUUm xQD2nOZksNxnKsYhMA7ysH EmZDSLSQ75rVXidjCxNRAw jO7nPIOvRKVpUSL9liylRJ WEXFG3cPZuz2O9OAudASK2 lT4rcBqtDkOiD5K2FZRgUM Dqa25olIT7gfVtLuNjRXRf na9qzM3fMLdiijLmfQaaxf Svk6C8MCYud7N5UZQhlpZw uHRaoJYxUIUrGuE6OZUeMg U1EOIdHKEzwTTbTFErLN4a VGhlIHNwZWNpbWVuIGlzIG RmuQHzhpFbQEVzdv58B3vv GVIthQ4sd2ofGzZgQDVqEV CllFCpbXB6AOCumD8dhS44 hgJmixGWZI9nvGZyGZ7ZYV NiMFxlcGljWHNiMCANClxw EJUnPWygg6JnEBoptNcmQZ JnQjOpABtQmAwuPTAJL2nz hKOlPDtxHKBHCHzVL7YIMX 4ZIDJvnRHUXCS4SH1uDUhv ZVKaZ4OiJ1NbyvF5g2vnrD geq0TbaZOcQK6yiCSoSR2Y XHBhcmQgDQp9 Disclaimer (test code = [id number]) p3hnsNFuUPZvg6qaWAOuuW FuZzEwMzNcZnRuYmpcdWMx UTvuhjRgDBqau3QiX4ExMm AwMFxhbnNpXGRlZmxhbmcx HYAbGTW0fqBdKAFtLTieFD HlSOkjPi9mfBDnoUudHdKc CKKyk6lfweWDMNrxAgUkV1 57JUWxOSfxo2dce2AqTJXa eFNpb1G1JYQSdbundEd9aL tnZ73bh9A8RbsqM8xvCTZk TRJmL6VlUI8xFSXiRib0QV W7ROJ6FPNzRIKeP0ZhOT5c BEMpmTIwAZk4p8hdlVbwHE LqQZF0l3rdFCfcmzMhMC1s qx6lqSo9l9wqrpEyLSUcUC OnyGVMWTAlE3QtrXkmJh0x kJf6pWfrShcuBBI1Dnl6IQ 1ots79hai0rPfeRGXttoxk HnS8BGlcHRFwrrbrSKc8MD cyBCYgmOA5QRKmsFTfI6Rf LYSfUM6uozx8PRH5WQthFY LaRvM5WUBeyVShXOHdnAtp URzhs592YBW6JdKqUD0gO1 Ybh3N0yL7brHErRJXwxDTj OtNaXVDgfe2kyWTeXMiza8 LsLDG3nnW5vZSstUQyJCJy GU32Rugec2ByRldml7HfE7 5eqCV7LUvdp1geLA5rFlV1 vqIgEKjfn6yozB6mRbX8LT lwBS9xLZ9kDJAtpJ8gpxhh XHBnYnJkcmhlYWRccGdicm AvBq0cjXjgLYJ2XUqyG4ko vD6uMdE7THubF3dkcU9aJS a9RDuifEU8DXRdiV0gLI5b bxqfy2klBZaqVAiwRVHrrz N5rdL4KGPmcBEiX9VelG5h AKRxLV8srvvrw7fcQZY8SW qyJNVqUOX4OwLwHMPqy1Ea hlb3FhFol8OcgEFjVJkfL1 5nw725HTWjojFoX7onuJKe ybtunHAwqcqiYWuygdE7LT BwxxKbb4XaWIByCHO4IHpw KNelhYTcXFZqiCdeb1rfN1 RscGFyXHBsYWluXGYxXGZz MjBcbGFuZzEwMzNcaGljaF bvBKsdLtDsHOZhDXlvN0cp OkOwR9AxETTbVvEiiHSaY7 ggVGhpcyByZXBvcnQgbWF5 VPbqG9y4OZDfnlTihYw4bo PiKeCpKHQbEJQ7JHqkdZYf YFZgx4HqddyerSRtPg1icM XeJCFoxR2hKMRnMQHmCQjr XN6wwZs6FJDZhFHspOAvFg MVWVLeCU03csKoGOFZdkbv k7N8PEzyRCHqi4EyiWMqZ8 fts0FfPWMsf88fOB6tr4W1 i9fuJUB0QA9rj0McGKYlvQ IwuOIwXWSim8Pmlnigq5Sy ZTIewkYng6LxCXXmiwYmsJ YyPDCgkoYbkx9xniTxSWJc PFXgM2FzpwyqsFbxznOnWF Wplw7kcnKyVTT6KGVEXEAg RPKle3SgoX2pbAGNTEY4wO Zqlv4vkmDVpLPlKQAjrn79 CQXuST9pY3vyVDLuGAAxnu RzcCOya7ScSPHwzTC1qLEk QG4VGmYOx27aQJWgFNAKfw LkQPFaaLrtyNR6xkM3oE4w IChGREEpLlx+IFRoZSBGRE FzKN2onnObs5FshaAunZlt OBOyiOLph5SvdRXrd1DffT ytx9LesNOyiYApHO0eUVXt clxwYXIgVVRNQiBMYWJvcm F2v1VkTTBhLQBrDWR4tZwx juf9PQCgzL2mPBYvH6jhpg weZYtgRVYyf9RamT3ltUIJ hXWut4PdmGRicURMgSFgYQ 5nbtZeUXfZAUxZBJJ8ntNi LTMrn4FqRChcD2tcW71fvT wvbUo6vUX6RIP2kG7wYnm+ IFxwYXJccGFyIEFwcHJvcH MrZNVmwAxhplXxU6RxyyOc tF6miTBsxkLgSI0iFD0tH4 B4pRGkJTIazaRjh8fiTDak dmUgYmVlbiByZXZpZXdlZC Idk9LlXVmfBFN2KJhiglNi bmNsdWRpbmcgSCZFLCBTcG FwzQXvYWJ6KDfjhxFbisQr QM8rdS8nsJfyiP6zkFOdeB I8aohsCUHvAXTpvFtyFYJh MJ4ueYlkaI3vKhYoIuHbLI tpWX1fVBVnN9teiXQnJBTu JDMfQ8dwCdEusP8uiEhtPP xjZjJcZnMyMFxwYXJccGFy XHBsYWluXGYxXGZzMjBcbG FuZzEwMzNcaGljaFxmMVxk JxCqXBGqKHkzZ7myUdJvO5 OhZQNmUgAybOIyY8ppDWet ZIY1WYWgOZ9tfIVtZY64vC Kxt3ntOCsckQevut0uG83h tDOxXTlevPzhXJKnr87jm2 HoZGCljuRlpx5xMCWmqnJ8 aJ8tZRDvxImmMLNdvMAuVG Rpw4JeBOagtVLaxqXoCDzl FJAzYGCchPNghvV1ajJnmj BsnpSiRDWtyKotLASoi3Xx IAAwIKaxm7Lvpw3brKShUC YmfyVAgWfbnOWmqU0nB7Zb AMNqSFWujf6iYSDdjX3mNO fka5FmazhmQEOhXTPaPUSv tdNmpf4mSXUloYKDFQ8NVO achLVcl9JwydWsU9vPVHF9 NUQwNjYwMjgxKSBleGNlcH FwPCJqqg31PLZvkH1waUhj LQDpdP7rpA7mxZrmgE6lYj AgGfYbDVtvSF1vMSGwM2hj uBHaTNYvAVJqB9njJsZtfB 9jaFxmMVxjZjJcZnMyMFxw YXJ9fQ== Embedded Images (test code = [id number]) [facility] [id number] 19:23:05* Test Item Value Reference Range Interpretation Comme nts Case Report (test code = [id number]) Surgical Pathology ?Case: [id number] ? Authorizing Provider: ?Dominic Keita MD ? [...] HPylori ? Final Diagnosis (test code = [id number]) v4lgbZFhVULum7cjLCPloY FuZzEwMzNcZnRuYmpcdWMx WKwhmhSlHStjaZkgQZI4WE TsDQ8vhGhrnWt9fQkgTIMy ssK5kGJtDUdyp2jdGRF8v1 duzhkgRXPrZFhmDm7luEWj xNcvFfOzQYJxCKp9nH56YU OpiN5knUTmYWm3JYRibZXi qbThZzFrNVHjpOTooVW2GJ PzAT6kcaihFMveMGmeDEXi ixS3NVRocRSgC7BlFPHwRG 0hjmxyGZV6NVxyPBUmABC9 LyMiBKDha6Obshs5VzCstG FyZFxwbGFpblxmczIwXHBh mkVPVdFDMO3YLLUFZOXZK5 lGKVQAKO0IBRSVIkjikLTr MIZzZXKzIFCCNM7PJMBzK7 hNFaMfUH2MVMQxRTQyjNDr BLSxzkFJEvTSTZ7LLR3PJX wgQklPUFNZOlxwYXIgICAg NSCvQVoIC9RERDNqZGQCW9 BSMLrSAIpjYl7dQMTMGT5O H7eMT8LLTJAXSH4WOGmqWD TzLGPdRPVnON3HLGqzYBTN DJ3LBAILOWGJMApOEKUABC LCTKnMZKPZB3KVRGzFJKJv ixbpWJWsZp1cS8FPGMWMNV wgQklPUFNZOlxwYXIgICAg KCUcDPHZK2DQZxRJCX6PE3 0REIXOPZFDVM7BHJPIYPgP KF3LNARBBTDVCYSXL9IesW FyICAgICAgLSBOTyBFVklE PE1OJVMAPjLXWAwAGQYqAB lTRUFTRVxwYXIgICAgICAt BG8AIKuiFNMBAD3FSBRPGb dBTklTTVMgSURFTlRJRklF HSQRHEPTQE0HEk4PNQVYIh xwYXJccGFyfXtccnRmMVxz e4CqX2XbCiMsVEsoylAlPQ TjOvmszwlmQSPcGRM5kbEq QOQeGHlrKKXxSDtcEh0zsX GtgEguRiSgYZDlr8ngvkVC ZSdwEiJnG718PKThTFhti4 eie9ZjCXPhpLPar4L3TUTR anuabXd2q4ndRhVxRzD6rM CoTYkbU8zzhuItmAOcJ8Hq kXXffEi0fZioJ24cg2J5Pl yvS5geCPBpVYNhY1FiPW7c SOQpMhl1WXX2RVZ8NDXbQD JvB7GqZW2yUSIauTZcTZt5 p0flhFooDKIzIDG3q2veNU srwwJ2FK3owc3uaXa5h2zg czEgRGVmYXVsdCBQYXJhZ3 CkbYciHs7clMz2wQawDqqz MUQ5Rdw6LJ5oal38cba8sA ikKECixsahQhY3GSmxWXTe tabhRCr7KEgtUXLwmUK8RO YzuJEfS5PlWADlSG8lmym6 TLI0UVpkQZLgIiW1LFJzbR TcGZLpeJphBGsne780TFI8 JsSqXW7tX5Gyy0Q1kG5kgH CfNKXotRImFkQtSWUmkz4p bQFnZUpwf7CvWVY3lsI9kH HclBOpMHXtFN43Rlfmx5Mz GdmpNTF1RJOyywAgg5Fvs9 swJrTmrcXpG3qkG4RyEEJv AWToNGBqRjZaclMpa3Uah0 DoyUOkmGe9u7erJSOgNBWn dHits1xlBQN7BHXaM5V8oA Esw0qbWXuxJGRniDB8jxS4 MODysKRnT5QziE6rCQAzWX 1drzw0v7osXUM2UAfhGUSc WhY3gqJ2ZQPmwXAcVIYrnU awUWcwv647MDM1YmKeUSBi c6IlU8XbxUzmI00wsBpiZ0 9qDKBbuUwsoE5pdLgmuD7r ZjBcZnMyNFxxbFxwbGFpbl xmMVxmczIwXGxhbmcxMDMz ZXetE3njAmCaLOPqxWzrKW dtv8KtIUOmGBDbUrusqzNw XHBhciBJIGhhdmUgcGVyc2 9uYWxseSByZXZpZXdlZCBh dZwbn0MxY5ojBX8pK9ZfwN VjboIlvnHxZNfiDJSji2j2 tUGykBmsj2ApzQCaRB90if LqVDPfMPA1SNWhs6bmBL43 hobuWtQwtV05jhOjgtAnVW Wkk9toM0qhyWIpa0Lnc7Bz ylIvBZlfn8CvRZ5gjALqfb mppKH6BNPunKGzzlYrlqP2 cMywBSSmvL6vmU7niOfgcV 9eWyIaZcJpUAstRM7xIVYw Z9cfgKIsQTVkFKKxJ3scWw YlyS4jzWjfWmphjvB4UNQm cn19 Clinical Information (test code = [id number]) Shivani Schuler is a 47 year old female with IDA1. Gastric polyp x 6 r/o adenoma2.Duodenal Bx, r/o Celiac disease 3. Gastric Bx r/o HPylori Gross Description (test code = [id number]) x2ibfDCqFBUbzUTJHYN6VK DhDQ7nnWrawVi7uGxhAJXr xcR4uVIjZYmgx6heMRS0u1 kbskKOEaphQQIvOJ1cCGup FNOiDD6zPwHqHBXfCfAaZG BhcGVydzEyMjQwXHBhcGVy mTV7UOYtJX8ehtcrCHuhDL peOLWevdO0DPUhxEGiL8Cs UPCySZ0unbouFUT8IGEPKo ouEd9qlBVwqKuhCwXdUsCy YXJzZXQwXGZuaWwgQXJpYW h4uU4JXjylCHH2QBRANcgf KkqnuCpjd3IdqJLcQERjKG xcaWQgNTEwMDAgXFxkYiBP AmAdIbB4Stm8HQX3HfR3TM n4CEQSHVEkKzkhQTQ8BbQ3 SBi5EPTqNS8yAPbcgJIrSW nuIknhUWtaT092FZydWSWb O2GnT1XdNUcoQcQoDXliPG LjEHRdQRchZPZgV7ECCBQq QHG3FdUtMTMoHWo4PSncD8 DIUPDmLGCuIeO4XLWbXgR7 BUb8GLMZYk7mLTqeNpYdTR j9MNU2JKj5HcKlTMCxTpAh YVXdJOGfVVyqkNHvVC1daF yeNKJjIQ7HNYAbADgkPLJg WzDyR5JNH3yOMM3yLUaoeZ JjaFxmczIyXHBhciANClxw FUNtSF6APFUyEWpqJXm7ri MnQCBxXdYfTFUyQ76ew0NJ a9JsUB7AQCs8qsGumnranE 0fMRSmldSyMIcFyXEarC4l upPYCQxoSYMpQ1XzyuNoBM keFNOuyb6vmJhqZRacBmKw bGVkIHdpdGggdGhlIHBhdG oxolAcJ1C9plWnMG0sYYYE BJYvqZ9aLWBnPQIuf6UehA FdfOtcA2WooGHkWoCio2z6 pWV0ZILxutLySBQmdUSpRH Ixhb5wIKgsTbGrC5B0KAIb GFXwz84dyCB1cyQaNoAokR x7kTTgUDX0UP8vtAayduSw a3t7wV8sFTVry2S1MQFgd1 R2BUWcvdFlrEFyjPMsTFNw ZC5wwwQxJP35EHWfFPpvAM cmTSR6SZA0BVUswJNyz0av ihoxMo9zFUutIL9zSXuxPE 79UWGvXLjxLMSaL5PuM5K0 ZJroEEQnAVDvnWKqlM3vig XyxgKrtUn1RWFdFXR5aYNh dAcvBMZhGxvspPQ3ZAKmOc JceyVty8TmhMz2fMDxLJqf HGYvuL1gtQ1oRJTlCJCfmi ZKPkxqBVYgOMyli9JjHQmv cGljWHNhMzAgDQpcZXBpY0 8cp8ZHd8Hpb5mhdSqiw2De aUJgBX8dfNVdES5Pj1ayKC BqnHYyFAA0DGndd5zeSJao RQX5IKXdJtUcQPRmAF2TVp SbZAnbFDx2ZEyxRXz1MEp3 ML5KDlXbTRYcJsd3JlT9Ds BbCBg7ZEvhAX8YXZY3QNLp YGKiSYfbJDF2YPLhOHj6FX IgXFxzcyAzIFxcZmwgXFxu S04wvQEpBLwhZfCfUIxnvD bxMRBlKER7GH6FSXUtOgOp R0DRT1iJRI4aYpsxteGfHO GbqiMMKbdxEEArTP2PNHKp QRkwMJp6odYvVWKpDhEwHW DzO36ng3WRq2FmHQ0TLUh9 ytChgfvxxP4zVEGyitMvc2 IzMFxlcGljWHNiMzAgDQpT gNKauJ6pbzJZHKrfBFJqA4 HcviJqXPvuPVHyvw9rwIbi IGxhYmVsbGVkIHdpdGggdG siTCAwxPhjsnLvY1M5uvCl NH1xKXVYRIBinL6jTMByJV NmVMCvHWFatZ5tXVG2o3Xn ojVaQVSEIFGzpBoaKO93zH BjZWxpYWMgZGlzZWFzZSBh thHkxiVus88dopQog1NzVR 3ytNuvDCfZSEhmJdOrQH9v FXHnpfQwd0TvNX2oMVHiaB OoQZUeetgkdQAlKTl8pENp JYRdIpPowDjcc9SeRTLzPL mtTG81poEuRD2nLOrtHU7m DPjgIX1kFVAvDPLsTNPsHk TyoUXaAmRbtPZrEeDiZ77i JaAWmIKtc4EyE7boGT9ieD BcLusbwRMmWKUzlMpak9Xo aUDkDVOvu9BofDXhTEqoWO 7aLNZ6Ut2moCOkHYRsfnT3 c1AoSAigSZEaEhaiUMVtCB rhs1NoYFLysNAUu0MsPR5I XHBhciANClxzYTMwXGVwaW DSu4GkYRCQIcxivAwsRvBo mFYdPkR6JHWzdNLmHLU6WH 4yeAkmAVBsXHg8YQvmJDIj W0XaV1ByBBchEbDiHSdvSN UtAXUeJNkmAVGqG7LFWNFq SGK1CzJtLEYbMNd1XNrvS5 WEILQpSWMfJtB0ZHT1TdE4 PTt8NTLKRk1eVNcaBjFvGN BtFxP8EQv0YbHuXHDtScFg CHFqMAOsRIeeeDMoXY6buL pvJRTkOYWiZKP4CCQbqZNV r4WpFJPrLWmbLuQrEPHQKT ZPED8BWoOPFIFoUbVrqKPv AO5QLSAftlWxZMlaoUotxM 5epBFnL9mqBiMqLoxcrJuq TmVzdERvYzEgDQpcbHRycG FyXGxpbjBccmluMFxzYjMw RFZcrTHRt5LsDZKXOtMiPV NpbWVuIEMgaXMgcmVjZWl2 VMVocM9bWt5slBKczP1qtN XqNOxaOAKrg7o5oML5iGMy sHQ1pRFpuLsyTvYiHU8xsV OiYKCKNH52nXCzeqYyBYEc vY9zYBHcSPUyHHJ9sencUJ DVUYC4cCMcv3P2DZbcGME4 sE2cwXdyQlZiO9X8LDVpNN Keh57ktLD1kfYuNpErEONu ue6prF3jLPdhyiRxdWyiwk Cvd1P3VDZfw2Q9VSWexjZh eQGrxVDiZBDhCeI8PHNiRl Q2NSWcADLfzPNnMWChBG0a VGhlIHNwZWNpbWVuIGlzIG OstGWjaiZnLWGjeg74O7mx HSTdyC8yd9urXaVpFDUqBU KkoSByvOS6OHAwtZ0lsU75 kwEkyrKZBH6irMHrRP8VLZ NiMFxlcGljWHNiMCANClxw QXPwWDeri8YjAPllrNviCB IrCgYeDIdKfUzfDNTFP4dv jYTaQPrtQKEOJGjZE4ODQH 5USNSqpJDDJJD4EF2lKNin SNWeF8UnT2BbwdF4o8fjcT clm9NonMRqXE1hpMPhLO7A XHBhcmQgDQp9 Disclaimer (test code = [id number]) r5zsjMDbSRKfg3yaALXhmH FuZzEwMzNcZnRuYmpcdWMx VXezotHmUMpcq2NgJ6AuJs AwMFxhbnNpXGRlZmxhbmcx ASHdMFP8fpIpLIHxEAmyZE CxFVvsBz4ibYDauWufTtGz EXMiu6mofxJUHIkyMeHwN4 34ZOFfTHagw8yia8FqVJQk yWKxr0Z9CWKOylgrhBk7oD xcA39ma8A8FhqqC7zeUOOs KBEmI6XsBU3dIBRhSvc4GP Q9CEL9RQIkMWXnD2MgIN2q CXUeuFUvNHh0c8cahJkaRV BtJBT5m8wfNOnemkRmGK4d kg8uaTs4h1jqpyVwMYVfOV HxpDQBPBFyD5KaxSuhVq8u tQs6uUsuDinrTNS7Gjk0PV 8hgq08wcr5aKyhKTSycaoe LqV3PKstTAUxwsvyWNg4AX atPBBwgME2EIVhiFHxR4Yu RZIvJO3cafh8CWB4YVvnPW HyPlR7EZSmfYKqXCPmfFhd GBnmd177OSD1HkGkUM3sB8 Jva8F2eE6fuRXkKYSvrGXt IrObFLLzck0tqLAmZHkeg8 ReZVZ6nsW3tDJfeSAzHLCg CZ09Bzoej0BoTiigu1AqR6 9zfAZ8BHjjq5uiAD4sJhO5 arNkDOzyq7kerA2mUtR3NM soQK1fIQ2oVFIqrO7znppq XHBnYnJkcmhlYWRccGdicm HaJr8aaSovGFL4JPxbD2wh nR5eWsV0SKtuT9pvrC4hDE z2TNpxcCA5UGHcpD4xDF8z zdqvw0mgJEqdHHhjZLXonu V0ilF7ZJZknSHuP3LkeR0i HWQhYF3mainxx9xvBEO3LC utGEBbHGW7DjJoZPBub7Ge syt3BvWvv2SocFNkUIiuD3 6ge938EKMoyqAeA1aafHAm dxwhiUZtpiifPLupqdD8IV WamhZfz4XcDNAqFTX6FEdd FBwdeEEvNJDktXwzr3ezI0 RscGFyXHBsYWluXGYxXGZz MjBcbGFuZzEwMzNcaGljaF tgQGxyKrKnVSJgWCcxB6gt RhKzK6BdTAHlDwEadPPjD3 ggVGhpcyByZXBvcnQgbWF5 XFlmQ2h7SZNzvqWtqYj7sx PhDrIpYYGmWUK2IEfgbCIm GHGob6MfdeijuPGeSk4xiY SoCDBrqE8vCPYvIKYwZDee LB5muBb2ITZNpBQmxSIjLx ILJWArCZ03uaBpHUCFpoae u0M3VDmzJVMwj3JaiAVeJ7 dur0FaIDDal58jRN7px8N1 g1gsGMA7QK4ly2JtYKKmwK XhlFYyCJFwo3Kposvhb6Hm KACvtrSoa7QrWBRffcPwyD HlLDGyigMkkz7rqtCgDZPq NRDsD1WjicatuMesqaGhDB Vdnk2vauPaBFL9UFUVJMEw TBNge7AiwS5mmGDAYPF7mH Nyyw4ghcOPhLXuDHJxyo49 WPTdAQ6cB0onYLXmXPKvim HijPDrc1LkPIEbhCQ3sUTa YL1HEbXIg71cJTCbKGWVqk CtUNMicQngsFQ9dwZ4uJ1z IChGREEpLlx+IFRoZSBGRE ScTN3azyUgs6KuatDrxBai PAColDEdk2MgsSWcz4FisL qic4NirNLpqWRwDT8lSGCh clxwYXIgVVRNQiBMYWJvcm Z7v4CzIYFcNXLtZWB8qZpw neh7DUUaoP1lCQRkT7rreh elGNayFEGhj1VciR4leYRP gTTre8YzdXGhxVSVrTCbEW 3yfmIzTYqQHKuYITR0vdOy UKWfk4RgZQmuS7hxN22llV ephMt0nUC1OBD9kB5uDth+ IFxwYXJccGFyIEFwcHJvcH BmYCMrnVtkryWdA7EozsVp gI3arHElmaHoIA5vXK3pP8 X4tWTfSXHmjgSql3czHPmw dmUgYmVlbiByZXZpZXdlZC Zro3TrLArjAJM3GUyhnwFr bmNsdWRpbmcgSCZFLCBTcG YuhMXyAPG4MLwvihOfmoKt DL2kpX2yjIhvmF3ytJHsiX V5bmbxBINoBACnaRmnTZYk NJ0mhFiykB8aYoFjFpKdOB qtRO1xSKVcU3rppXIeCTGr WLHkI2noBoAxvK2laVzsVY xjZjJcZnMyMFxwYXJccGFy XHBsYWluXGYxXGZzMjBcbG FuZzEwMzNcaGljaFxmMVxk BmWlOYTfTEzsX0auDpMkJ1 LoPCTwIyRdwREdD1soADuz QIG2IXXcPR4zlYIwIU47kO Xik7dhAOlkhYsxlu1aL53l yQCoBTzzkDsgXBKdh44sv2 ToHOZfoxKrbm4mDPXgceV7 iQ1pOVOpeUmrPAJhlERaME Afv5TyACjjhJJzcwMcFOvf WRRmPDUkiELrpnY0vbLhbd OmzmDdLCQvnYpuDBTie7Ro AXXvRRbad8Atqn1baRWdSA CdujUTaYreqREkbG6kM8Iz KDZkUSZhgp3eMPYxjC7eSG yab2HsgrymOQNtQEIxNJIc wiJlui9qUEFznAJRYU8QWM nywETcm3CanwFsJ2nHBZK2 NUQwNjYwMjgxKSBleGNlcH SyJMLefr42AFXeiD8rcQwi HCKbzL1mdH6pwOoomA3xKr ViZoVfIPpeQH4pCNHnK6kd qDArUCRlGLGsY4ybSdRgnA 9jaFxmMVxjZjJcZnMyMFxw YXJ9fQ== Embedded Images (test code = [id number]) [facility] [id number] 19:23:05* Test Item Value Reference Range Interpretation Comme nts Case Report (test code = [id number]) Surgical Pathology ?Case: [id number] ? Authorizing Provider: ?Dominic Keita MD ? [...] HPylori ? Final Diagnosis (test code = [id number]) p0vbsQVbBPEbg6reACXqoZ FuZzEwMzNcZnRuYmpcdWMx KIgutqQvBUnupDayWXX9EU KxRH1osCquiJi0yMywLWRv lwZ6dQRnJQgnp8vyQBE3s6 jzjcchPFTqJCvjMy5jeUJp vZfcOiZzSZWaIYa0aE94NH CiuF8ahKCjYBj6HXEhbVBs sgAdBcCjAEXfdAXnwWK0JA QaCF4ftfmrDUuhIZevWWLu dcR5YAFrpQHlK6JhWTRyQU 4dkngmSOO4RGefFURyYVD6 CdHxYQQld7Jjibo1ZwDzvV FyZFxwbGFpblxmczIwXHBh zgPRThZFUL1NIHLIETGJD3 rFSTYDWC5ZDEXSQiysnEYf XILfIZZaSUQLGV2LWWImB9 eEWlOdRR9MAQWjZQUplCJi PFFicsUVOhACCB7YWN2TCM wgQklPUFNZOlxwYXIgICAg QJXiRZjFG6PTGSZaKTJDS0 FWVLbJFJulOt3oBCKRNO1T P8qZO7AOZTFHCY2AFQctWC KgBAWgASBzSK8XNPglNEBG JA7OCCENNMWJGTqLWXFWAM PQYYgSFXLLD8TBAPmFZUJu nonmHUTdNg7sI8NDKJUEKV wgQklPUFNZOlxwYXIgICAg MMYcAJAQS9IUIiLXCP7PJ7 4WDILCARLGXF2BKIOFCJpE NZ6BVYWKSYFMFCGXC9EtsU FyICAgICAgLSBOTyBFVklE WK6EAMHRFqXHJVcYITXrPE lTRUFTRVxwYXIgICAgICAt ZC8ELMkzHVOUMD9YGCXNSv dBTklTTVMgSURFTlRJRklF LTCQZDYCMJ1FEw6FPLNIDp xwYXJccGFyfXtccnRmMVxz w6ImD6StNsKrVSvggvUbPF PxDksxejwcOBSxQEW5zlOo AISbFQyoFEVoDBduVm1ulP IktHfcBnWgOGSvn6fvkhAA UWppZrCkA052AMFcQHnsa3 lnq5FpNBDwzCPrj3F8HHQY ugsqrOi9q4dnDjRhQeF0lX WzDJslD5wpxfYnxSWeJ5Aj dMWxlRa1mGjpW24ow4I7Rc nzV4uvNDTsAPSyM0MyDQ6w WMMmZpt5BLQ8BEN3XGTdDS PeV1WkVN8cWOEuzWIhHOd6 n1dniJorJVUrPLK4z9eaTW ewvwI5DN4gcx2ymMa5m0kg czEgRGVmYXVsdCBQYXJhZ3 KwdRrvEi8kyNs4wVpySjrn GFV8Dbn5FZ7fgx40tmu6eG vuTRWvgwhzSoQ8OKthBMKy oukpLPa0ATieESHxcLQ2UQ MliMJpI2RcYXNmOY9eets9 SZE0OLkuKGSvPlQ7EDKluA OfKQQpcYhcJSnhi942LYI4 LoLgWX9mS1Ahp6K4gZ3yoW LiUOVwqKWpIcGhMSJgps2q fPQzBNmcm0WsXKE1zoH9fP ClbTIcPCPzXZ69Sfvbq6Xq JxlkWSB5KNNhrbSew6Epm7 tuFkMqgtYxH2gaK6UoCRGm NUTuIXGzLmMujsOgj3Tym4 NddHWymWw3z2kvKVXuIGDb tErya3teRHW8JNXhR1S1lK Cwm3uyYFwlLGDceCQ8oiY4 HNOgpTOjH6DjpN0nDOHfIP 9zwvw1r5vbDUU6TZljPKAd QaS2ltB6UJLuuHDqYGZtwZ isOSiny644GFM0WlQmJXRo o5DsV9SzpFwlR28qxJgxS8 9hMCFklSktlB1lzQrrbI9t ZjBcZnMyNFxxbFxwbGFpbl xmMVxmczIwXGxhbmcxMDMz IFpnW8ylTdUtTRYnhWkxMC ayw4TgXPKmCUCpBkqwpeId XHBhciBJIGhhdmUgcGVyc2 9uYWxseSByZXZpZXdlZCBh xVyna5SmO8sjYI5uW7AdcY JfpqLnksPhOFjgMKOal1z0 lKSipWkfh3KpqCGaJB23ht AeLVUlWDE8GOAjh1uxCY47 lmbqNaYfxM30biCvzxByTI Bmq0tsF1edyVCyd4Trz9Xs lwJmRPscr5CyOG3psPJvxt vgqID1IUYyaOXvkzPxqnQ4 sMbuGCDnoT4ckX2ihIdhuN 2nCqSuDxQuCTdnVM3nRUNa Q1fxxPGdUYClFWRqH1mwUa NsoX0ygThlZefxtjD5WJZw cn19 Clinical Information (test code = [id number]) Shivani Schuler is a 47 year old female with IDA1. Gastric polyp x 6 r/o adenoma2.Duodenal Bx, r/o Celiac disease 3. Gastric Bx r/o HPylori Gross Description (test code = [id number]) o5qntZCdHVZzpWUGNHL3AX NcDG2rmBrprDu8vRuhVBXl pnC3jOVdFIreu2xyQML4k3 ysvtVKTmwaAVRwOF1lNWgm KYFmKW8iQlGqJGOyUhCbEY BhcGVydzEyMjQwXHBhcGVy bPR4LHUfOK2gfpgqKOcoCF geUXRggxW4UUDjvLBaU9Yy AYUxNM2oaacrVDR0AOKQYi juDw1tbLHqtHsxVlHhTxTy YXJzZXQwXGZuaWwgQXJpYW f9xX2DRleoLOC4OBEYXapn QuisiPnjw4GepVUmLNZhRF xcaWQgNTEwMDAgXFxkYiBP HbYvDdU6Hzj9CLK4YqF1MC z4WZWQIKKvTsfwMYB8YrB7 IKi6KUOdPU4dKFaubDPkXG ecCawoQVreP212ETffZVJr N1OaA3XkQJqrRhRcUCvoRD DzXMLhDTglSGSkO4TDTPKw HNW5ZuCuBCDbBFn6NHqvV6 HVQVTyRFLnHwG0IIKzYzL4 IId4ODQRJy7pRDlnToKjUZ c2XZN4XZv8AzBsSLPhHnRp BWJmBMFcQNyfmRIpYX3aaG uvNEYvXS8TWVLxVEufVJLf CzIvA5NDD9sGBB2mBArcfU JjaFxmczIyXHBhciANClxw RGZgAW0KSKKmYUhqPHx8iq GeFJAqMeBkTKQsZ67dj8BB o4IcOW7RGKm2atTlukwlvO 9tBINygyZzLQiKtOAhuF7r wdTQPNauOHXlS7TunuRqTE mrMZWuuo2tdBlhZSolNhGy bGVkIHdpdGggdGhlIHBhdG atruXxR5W2ywGmHR7qSIMD AWPzbV4hPZGzSLDdx7RjwR MrjKbuW9KzmSMmMeRep8f1 tVA3YXOwnnFkNFYahZDgWM Gbhz0oHDukArVmU4V3GZCm RSZbm85dyEE5rwDzCfAsdC j0nTIkIVP4YW4frHxmwdQb w7j1oY6wLUPxo0H0SOXaa0 U7PLDakpCsdBYamOZnQSJq EU7olkGhVQ01SUGeZObaSN spENV9SRT0MNXvpIAzn3df wqajEr0zXEoeQA3cNNvrPQ 22XGQsRQusJVUiA3NeE1C6 UUwuQYKlNDGjkZUluE4bdr FbcwOutNv1PWMvODV0oDAm zEpwZCJsTtofdMN3YZBcRn KgyjLnn4JyxZn0wANeIYpm CGHhaT7stF1nODEkKITmzv WAYkiyPBSoPBqnf5FqLTsu cGljWHNhMzAgDQpcZXBpY0 0ml7AFe9Wbk0uwxDrzl5Jg lTDtPD0vgQBgTC7Xi2hhDV IuyGVqQPD2VXruy5dvTOji WUD6NOPpCmCzPDLdRC4VZb HhYVdlFHi8HXgvCZg4URb8 CL3SIySpGCOoAhv1VfW3Rf MtLZw6MFnfSI5TKXV8ANVz MDYsTUazTYN1JHQaJLe8JG IgXFxzcyAzIFxcZmwgXFxu U36adPCiSIhbRcHpHQdoxH enFGPfAXY1TQ6KQMQnJbZl B9KVF7eCYA0gJajtxlWtFN LaggBMBlqrBIDvKN7VAZNo VUmzGJz2alUoMRLrByQoQT WzE70uw6JMb5XkBO4UOHo5 vkSnmwmxoD8iCCWsrrJpy1 IzMFxlcGljWHNiMzAgDQpT rWOmoP5oyfJUZFxrQTXrT5 VlznUbTRxdMFEnvy6qvHsz IGxhYmVsbGVkIHdpdGggdG hnMBHqwUvwpoXpT7L9taNp UI5gMQYYOVKibJ7qJEEwRR EoMWOoXVDozR9nSOO7g0Ti glJiYVVDFWXsnDglBH13nE BjZWxpYWMgZGlzZWFzZSBh hoUppdCof49yuuAyo9XvPE 8niKmdKDmZMOjiZaHaZI7n VUJviuEys5XgGP2jCTWuzC PvIXAvxglahEXgDTq1qYBk DLTwZlRpvYgro8ImVQNfJY xgRY88dmKtZA5aVUitPE4i YOxbIL1rHNXjTSInCLGvNr NmhFAnAvEgzXOlCaWnX24e FyXJiWBbf7ScC0syUX4blM ZhTrauhZPtLERtbBzus6Jw zHTkDEPos4NuyTBbYZydGA 1aCFB7Kb9frWOxMNRaqeT7 k2IxPPlfJRLsZqinAAKjNM zeq3IjJXUdvMNWk8KiUJ2E XHBhciANClxzYTMwXGVwaW HIr2MjUBOYYicyiKjyZxJl nZHiWoL3OQUedWKkURH6OH 6rmHlzXIUcAGw3WBrrPHWn I9OlV4IiHKcpCaIpWTbpPH ItXOVbDPiuRAEtN8SQLFVj MXP4LpEeESJpHWf7DIsgK0 YVSKRoAEMbLyM3BSH2SmB1 QWw9TIBATy4aKKvqBjZsRE GwQpC1TWm4FxSfUCKqIhTy EDWwAAZsHPfhoRFqYL3yjJ rwJZXqYDZdLRL6HVZbuMLT p4OkHWBwDRtmPeLvWRSXEI BCTC6OXqQDYITsBmAivRRy BS3LVKOfwdHuDGudxHpuwZ 3vuQKhQ8eoZxEcZcerxPwq TmVzdERvYzEgDQpcbHRycG FyXGxpbjBccmluMFxzYjMw QYRncATEx6SoPCBVJaMyEH NpbWVuIEMgaXMgcmVjZWl2 CXEedM6vQo8vwHOqqG3ycS FsUUcqEIZmr2v1xKA8xAHm bVJ2nOEucZdlKvSnYP9xfO NmKRUTCR59zUWneoEbHFHr yO1dHHSiLZUhWTR3mcsmAN LHFLB5pGGdi5R1IQaqCIK2 sR4lhWvvHzTcQ9P3DEUcGT Ezp85gmJZ5irXbFjHyLELh no2cvD0tDViqlhMjoJqkoe Qdh3D2DFKwp0N5GWIkcmVn rENlwBOsIKScGmC5WWWmPy S1KVZaDAWqcJWrSWGmBH0d VGhlIHNwZWNpbWVuIGlzIG KtpJEghxNqVWSewr44T0zf UMAoxD3jc0zjIoMpEWPgPH PygGRbhDF9UEWknP9oqK93 nqRwbzVOFL7vvYOaOS8JLL NiMFxlcGljWHNiMCANClxw AUQfJQdtj4RzCCxzyPohXD XoWkTzRIuLeInlGLWDV6oc wBPiLEwhIHHPUJjYW8LWTW 6PTPMhaYUZICC5QH1hKYtm MHWbB2YuR4WlzlN8s3esiP pzf0EezCXgQM4fjJGwOJ2U XHBhcmQgDQp9 Disclaimer (test code = [id number]) w9ryxJLkUCHmv1iwPIQzoA FuZzEwMzNcZnRuYmpcdWMx RKeuycYxVJkmf2PhC5YoOv AwMFxhbnNpXGRlZmxhbmcx FUGtOKN6bqNkAXDoDCgqEU NjXTwwId2spYOahBwhNyZq IAEks6fvosBISVzsQuKjI6 33IPNpFIyhr2wrv6KvKFTg sHNxd2I7TENYqscrmBv7oH srJ11xm0U6PehbL6wpVFZt MHKaI1QiPJ2oPWVfJdc1XB Y9LSS4ZWIzQITpX8BmKB9j FJAuaGEmDTn7u3ehpRbfGK SzMVH2b1ecPVgryaIbAX2x xc3xrYc5h6dofcXxDJUpYR OtfTGRFBGqZ0LfxZcgYi3o uMr8oGvuGvtaKPB2Lbo9FN 2pde62tyn6xLjgODIoohxa HaI7EDttDXXuheiiHHi5OS fhDCGfsWB1UTJapPVsG7Xd HIJgHV7gugo7ZIG3RRntWC TmLdO5NTIqhXYyVNLbiMgf LHezv873WOG9NzTdUX6jG5 Tdw7T0iD3xsGGiXZBwsULs BpUiQDIxvh5mqQWoPRmaj5 ZeFPR3fzQ0eTNfzGJmVRFb TU05Qxked2SzTsema0HwD3 7bsNK2VIzjj7noRU9pTaK1 uwUeQEbfe2tevK2oEsV8GY jfNH9lTI3oFEJzcQ9ktwgt XHBnYnJkcmhlYWRccGdicm YoUe5peUeoAGO0BGtyC7jl eF2rOuC2JBsqS0ujxD5aTE m2IOhaaAE4HGQumY0uBD3w ebvgu4msGPfsPHplLRPnug F5xuR5NCCnyALgB2ZqtP0j EEYzIX0efndhf5njHBX2ZZ wjKNVcFFL1FvLwKDEri5Vl wmi8OvTsn7QgbLVlUHldJ8 2jj546QVKvpkQdS3uopWHw bmhqhTIvlszvBSqrhsO4KC YupvBws0RoUCMeEYS7UNiy CZlnjODcMGCevUolm0ttX8 RscGFyXHBsYWluXGYxXGZz MjBcbGFuZzEwMzNcaGljaF qbREzmKmIsGOElQPkcM1vr TaEhE8GaTGAwAdIgyVYcT2 ggVGhpcyByZXBvcnQgbWF5 ZRjaU4e1PMVgnsMjkVe8jq OzXfKaMVNjTDF4JRktaKOk GRXkr3YjmfkdeENyGl7nwM ErFXLqsR0bZPMiLQYmQNke NH6xmUa8VINSkPKflUHkOt WEQVXsDK22tkPzYLLKyhrq u4J9PRwtEBXdq9QckNGqU9 jsi3IdRDLav50hUI3wd0V6 y4rwRCV1QY2jy0UoBTUilM DsoKWoGGSjo2Zryinvf3Mu JNFvurEyk0ZpCNKwzvAulK ToFFFyloDtjv1igmVyJXOs OCOgL2FhbytsuCmcfsTwVG Bsvi4vkmUsWOC0CQSDBQAx QRZev3UifU6kwWBZQRQ9fR Rssf8wvgOGeRVmIVSrbl46 PHLwXX1mK4laBPRfGFYhvu BseFOac8TlDSHooJZ7gWNh YR6FVmJHq96cHMLgTILAav OfCPQzqYcogSM9uaK6cK3o IChGREEpLlx+IFRoZSBGRE OfHK0kegPlk0YiujVslTqu CFCdcPDro1JfcALvw6UbiF spy7PjpVTbiUFkOB6nIQOy clxwYXIgVVRNQiBMYWJvcm F8y0FnRLGlVSFaCRB1rNla kzw0QMEfpR5sJJNtX2ertx mjSIpdTYPfl6HrtE7azWUE wELry8VkqNBoyUHTlONhTM 6lmkAvAWzDTWmHCPH8aoEn YKPkl7BkELnhC5aoX22fqA tlhUw1uJJ5WUG8mR0gEia+ IFxwYXJccGFyIEFwcHJvcH LfTHUejWzlhlMmV1GajdVx xZ2dwDRvgyUfRD3pMI4kQ0 P1lJKoKSYnovIcc9fwKVlw dmUgYmVlbiByZXZpZXdlZC Zsb4JbAKojQUM7RYjtudAo bmNsdWRpbmcgSCZFLCBTcG TxkWMuAFE2WHrpmsEsaqWd GZ5dpX5xhUgujZ5xdVBmeS Y2ylicOMKrGBTkvVidXAQx XR1wsZtfbX6oLuIbVpAaDM dxNC9oSFEnA4uvsXVvHXNw YKQtL9wsMkClfO6bdJryVI xjZjJcZnMyMFxwYXJccGFy XHBsYWluXGYxXGZzMjBcbG FuZzEwMzNcaGljaFxmMVxk LfObNZXuVHisC1szSdUtB5 CmRAThCxTlsMLbO6zcHAnh SUB6DSRxRB8yfAOkKU14qM Cyu1qnCKlsnHxvtb0qK88z oXKxRAdpjCwrOUYag54cj0 GlQUZfnbPfxq5wUUQebvT9 zB2rYICkiIbbCFThpNSyHL Jmt8AeMAdqtTAgicDvVTme RYLpHBYehMFglkF1chMwve IkqzYtUHGyvDmtPZHoe8Ac ASUtMLuek4Wkyj0jiKSqSR OgapCWsNcocIJouJ9cN9Iz OAJzQHEnun2gOENwuV5rTC few1UolpwvZBCrAAPzGLBm hjGdqd7mBCSvqWGUAA4FEE ytdBKoh3LhwbDkW3iTUHN8 NUQwNjYwMjgxKSBleGNlcH KuWNGsju55AQJihV6vdXwm HPQcxW2zhF0zyJxokQ3wRn NzAdJbTGllTG8qSPSaK8sw hQKsXXIzMVHjR1vkIrDjtK 9jaFxmMVxjZjJcZnMyMFxw YXJ9fQ== Embedded Images (test code = [id number]) [facility] [id number] 19:23:05* Test Item Value Reference Range Interpretation Comme nts Case Report (test code = [id number]) Surgical Pathology ?Case: [id number] ? Authorizing Provider: ?Dominic Keita MD ? [...] HPylori ? Final Diagnosis (test code = [id number]) v0kwnIRrRSMkl9siRWFllF FuZzEwMzNcZnRuYmpcdWMx JQgkulPzRApydAonYDJ2ZC IsLI9rtIvrgTg3rZsrUQId jsL0bKMrENblb1vfBMH1l9 jwrmrpPOGyNUeaYa2xhOKq hUwfLlDzTIDiSFx0wN56WB WphE0cxYRfEVl1LSYjsVTi bcSiXjZgQWEptPMoiDI5QW XuYH9crhooZTaoVXkhWEDk seK5YWZofYBfU1QmUJGmXL 5tlequJLR8FMsgNLStOGN9 OfXuODBrb8Pjhsr4JrNvrC FyZFxwbGFpblxmczIwXHBh sjUVNpZTLV7VULZRQJDDE5 qCWTNHDQ9BQINIVrqtlDId NHOzKWVwARDXFJ7GSHTuV7 gFMuRzMK8YELSoNXUhdSOz WSHznbMILwDOYE1WCK6PXZ wgQklPUFNZOlxwYXIgICAg CQQxSIuKJ4KTKAYwMWQWO3 MAEUoUQPfbEi4mCVRFXD4E K4jUN7AOCCAGOI0NEQocUJ MmGJMsUTNeUV1YLHrsODRS CN3OAXGEFPKDGEnBVDUUAC ZUOYdDJFZQK2OPUKrLZLGw ddurLXXySd3kL9UQVDCMFM wgQklPUFNZOlxwYXIgICAg TBNmKGBTE6DNKlSTVF7JA5 8KXFHHBGMERA2GATBJYTiC GE8ELLJICFQMMFIJS3NkvK FyICAgICAgLSBOTyBFVklE MM1HHEJWMlQDYYiVXYTsZY lTRUFTRVxwYXIgICAgICAt TP0LEKjsBXQZDS5EDNSEMi dBTklTTVMgSURFTlRJRklF JAYLJEWVQT8YBm5JRYHZOf xwYXJccGFyfXtccnRmMVxz i4BxW0MjCdJtRAmzgyAcAI AvAaerklpgJULcHEW2ayZd YAUvXGesGFYsJCcwMe1jwJ YanWvjDuCgUEPwd1ywlgRS LVjnSuWiR758KIYbZLejz0 rqz7QfTARlvBIff1O7YYHQ ywyqkJz6y2bqJaMwLjG1qE FvQJryA5wpeiGuzXJfP4Ln aEOadOc5gPtlJ13xv7V2Ji hbF2khXONdBXJiH3GdJX6i ASUgZmw3RSU5YZJ1REDrCM VvA2WiME5hEVAfmDScVPp9 z7ktcJiwSLLgDSD8j5zsJM faxbQ8QT9pcl3imFf4o6ro czEgRGVmYXVsdCBQYXJhZ3 YccMufZa8mnNf4hKzyCzxj ISA3Zgp8ZH1mjn47rvl7xW ooNGWnmjbeLgK0MHmoLANh wjijZKb9KMgtQQSabQA4NQ RshYDlE7ClPZGcAO8yrfb6 XWU2MZbjVKCuTaU8QVYszL TnSCJdmWaeEQftk196MVP1 QuFgGF8pS3Kko9L6cG6fzM QvPEAbjGUeNdMkSULcqe3h qXEdVKcfr1XfEMZ0bnK1aA PswUFxDTQbRB66Dllsh9Vk KwvjDNU7CEQqzfUez1Ccp3 aeXfHnulYmE7xlK2AqZQOp BPJzWJIzVbSymdCrh3Jcj8 IwbHHhfTl5e8qaKJFuPKUy eOwhq0pnSWA5DWPtG8L4xH Rbn3evKYbtNBDfgDO4klU3 HONvqTAhK5QupW4mDGXqYA 7qwbl5f7viQSG1EWnpOUWs AaZ2kpN8TTCdgTKzFQWzoK lxBTbni844CAS7HgIlSDQz r7LzJ8HhiBnsM56giQslO8 4uZXGspGnopT6iiKsmfY6z ZjBcZnMyNFxxbFxwbGFpbl xmMVxmczIwXGxhbmcxMDMz TCvcK4tsQwIrSUUjeXhhJC lhr0PdISGtUTVnXxsivtAh XHBhciBJIGhhdmUgcGVyc2 9uYWxseSByZXZpZXdlZCBh tEswv8AzT6iaKM6sJ6TfmR BuplZnmwIfEAwrVBIgt1x4 xCDmtOzpm1TalANcAA26zd NqJZPwAOK4PCNbg4jdCC25 wfopXjGpuN09stEezfBkXZ Sde0dcR5rwvXXug0Hpw0Ym fjKyAHhxa6DbSG3kiZCtkh lrrFN4RMYulUBfqlDpgzD1 rAvaNHBriU6cjW0izAizwU 1kPpJnYkOxQXcfND2lGILw X6racZVbXRIcBQUrW8cqJp BmoH3gnRtiDervlsR8WYPr cn19 Clinical Information (test code = [id number]) Shivani Schuler is a 47 year old female with IDA1. Gastric polyp x 6 r/o adenoma2.Duodenal Bx, r/o Celiac disease 3. Gastric Bx r/o HPylori Gross Description (test code = [id number]) h4wtmVVgSRUvsJEUXSX4NV IbCH7whFppsOz4eIdwFACo pnP5nZMkCIcgf4bhVWL8q6 prklQIQgbuJGRaZH9sHUhb PEIqVP7gZzNyDJKjMuEvUV BhcGVydzEyMjQwXHBhcGVy lGZ1TXByGV8toognTJjtBN acUQSdduM4LBQxrWEaE8Zw PQOaHV5fjyrcZQY2PVWUBb jxYk8cnAYfcLqfVyMeIuBa YXJzZXQwXGZuaWwgQXJpYW n0dN9QQjppPQB5EUVXCgit ExkqcWytr7ZfkEDrDPHqYH xcaWQgNTEwMDAgXFxkYiBP RiXzQsN7Jvx9AZL8TtM3FJ g9ORMUCGUqLnrxKKO4JrH9 GQe5GHLnPR2wYSgkrYPmGV kcBixeMFkoI118IMuyGBLo Q7HcJ4ReXAbqVsEcHPzcDH XxEINfRIasVXZpO2TNWRYe PPF5OhXyMICrAYe2ETumA3 PJLCYvEAEdSaX8SYAfIfG0 OOz4JLJKRv0zJPigBhAgCX a6BGN1AMy3PqXcJSVyJgAt CJXjRXCeOZxieYHcBF9arI dzAHYwNZ6OXMLtAQocHMQe WgQwT8MWT9gOKQ8rAMyvzU JjaFxmczIyXHBhciANClxw PLIgDQ2ZDITnZGfkUEx4kv WuLJEdIoPiBNEbU81zd4UV n9KtBV0RLJc9hjGfqoybmA 9fFZXtyjEaRXeAuQKhdF9s xeCFSSwlPVVzC2TataGfGF hkUDPlbh3heWkdTDnjLrSe bGVkIHdpdGggdGhlIHBhdG ardeKdT2G1efStJD4tULBD CTNacL2fRLMjTMMwi2TesM WdeIocZ2VqzWDgLeOco2i7 uKQ4KQVfsaRyUNEycUOoDA Pgex2fJOhvDdKwL4S3RPXl WXPej76rhVC0zgYzKxSgvU l1xXDzADW1CM7chKnmctEs m6z9mQ0yCCPne7O3FFMdv6 T1GFIkseSjnPZqnBNpDLOg CO1ttkMjGA73FCQpOAdmAT hzBXG0QOR3DRHgwVFiw0uf mqlgDl8dYRfrBS7fWGlnYI 27ICGvCVgbPPDbS2ShL5Z7 TCsxUQGwWZIwgDZueQ6oax YjywVefVi5QBXsKBC7mRZp cGwlTLHyCecukIZ7OQNwYu IuubXuk7SjgXh8vCEcTYja ELVqbW6evU8aLNIaPDArav ZYLaieATKsEBxag4PoXPfn cGljWHNhMzAgDQpcZXBpY0 9qx4EJn0Oje3xwqIymb7Sw tIHcYM5vyNZkDC4Js4vaFX OgdTOaZMA4OSveb8daELqu GWG8JIYrErWhAZSyBM9XOe BrESqpMBd9IPljZHo4DIw5 UF4NDnCuBIBaCjk3RfP0Jo EsEFq9EAamHP9RPDV0SHMe YAFvUBkgOYQ4OIPvSIi7RT IgXFxzcyAzIFxcZmwgXFxu K04tvKUmZBugVnYoHVasvY nwAALnIRY6IU9DZPNhVpOe O1XGS9sAKY2jWhsqfjNdYT FwnqALUecyZTRwHW6OYNWs SFuyDSq3juCvRWItPaJuCB MlV81qg8PTf3HpOA5UBEp9 buCwikleaE5aZSHrraEny0 IzMFxlcGljWHNiMzAgDQpT xFFzjV2lwxIADCvaSHOnS4 EjlrCwYJuwSFOiqv7gvOmb IGxhYmVsbGVkIHdpdGggdG uiDWQuxHscljOzV3Y8jaPh TC0uJXXDBDPdaI2rCZJiPT QfLDRhYGHdoL5cJCX5b0Xq bkHeVRKUHBKvqMyvEH65zD BjZWxpYWMgZGlzZWFzZSBh sxEqneVgz93skiHks2YkDG 7odLqwHVqVCQtfVyBxWB6v EVBgmiTdt3VeVX9wUYQbiE YuQANwuowqrKOyCGd0nLQb HKUvJkFqrAozu5BySNRrDH cyWE09jqSnVU1tGBnyIK1p RBdaLJ9mZJVhSNPdGYZiGa XijVXoIiLlpURsMoJvH99l HsXVzEWoh1DuI1xySW2ncR JpDbziuIQvBHMxmLnlt6Zo jIHtNYWig4BbrJObPXmcBG 0bNOO2Ie9peZRwBJGzooT1 r6PjGRcwRNFdCvqiZLKwJK prx3YwAEYfhVJPk5VrLD8G XHBhciANClxzYTMwXGVwaW MUf3YlZEVGLiwgxKrmExUw gAJqIwN4BTCefOHbMPS3QZ 2teTslILInZDm4WZkcMFFp B9SwM5LuHDujSnIkTAcpMQ UxVELlUBjvMLQnF5TOWBIo OWW7VqXxHSYwXGq8UEihD9 TMJHHvAMSxHkO9PGQ9MpZ3 RPz7TDIXSd9yIFjfJiHhRI LdKwN8KFm0OcXrRINlMjSp YHAyCZEpLFyxkBOtII9tkQ srDUYdPJPoNON8JDTlsAVD q9CvGTGySGuyGcQeJJSBQW EHWP0EDeCRLLIkLuUpjPMm FD4AKHRscnIpCCgquFczoL 1rrJPbH5ghIjBoPbirtOzv TmVzdERvYzEgDQpcbHRycG FyXGxpbjBccmluMFxzYjMw AFZqhRRFt2MtHMVYYvAnRQ NpbWVuIEMgaXMgcmVjZWl2 FCFdnU5uFf5vxCBjpB5ypM CeDIhcBFGbw1s5lRM7lTTb hNL1tCRleXxsHlEuZU3ucN NyCAUHZQ13qHPqiqCtHQKl mL1cFLIlLZWqBKV0jylkRI CZJVY2dTWyj7F1ZMswDKZ4 yM6cnBraZbUyR9S7WIBaOV Oax35hdZH6suQuTzQbTCRk ok3uaN3sEKdmojVquGfxjz Pfv2G3MAWyi7O7SUJkutSv cHVutXTwQHFfGsJ1DFXqLn C0YACeUDXjqUPoSJYcWP5t VGhlIHNwZWNpbWVuIGlzIG WthQFnerAfQCZekg97G3cx VUNsxB3oj5ezRmHtCXFzYE LfrJIrvBH3XFCffC4fcV37 unWswaLEBU7bzGRlWW0DSQ NiMFxlcGljWHNiMCANClxw GUXfWUqcg4WqFWwjgOgpNN AcNnUwZGdMyFisZFSUZ7kl xAVfSKqqDNXFPJyMU3SAIA 0UJQLegWMWVOX3ZP0fRIow VHDuZ6OcS6TypqJ0n3gsiX dwo5ClnGJkSV2unXRmKM8Y XHBhcmQgDQp9 Disclaimer (test code = [id number]) l2htxFDdCCLnm3fmBYCdwU FuZzEwMzNcZnRuYmpcdWMx JGmnvvZlJOazb9HrI7YaFw AwMFxhbnNpXGRlZmxhbmcx UBEjLFS2bjPkLTHrADpiSF UzRKygAi7gmBLkhSkdDbUh ODWiw3nodgDUSYouKhVeZ1 81OEEjTQhvf2nav7TkHSPq aPNok6G0PAXQhktfxNk3aO oqI85cu5Y3ExdxE7vaGTPm CCKoO5WpXW6zPEHrLbm2RX V3FDE9DRKtUAUtL9CoHW1q JFGsuKBbGJv0h0icyFufKS KqBKM9y2rcJHivyjXjIE5f df5gxKn2j9ptzsBlLECiFT GipLRCCUZpU8VsxMtnGu3f zBq2hWbeVulgNDJ9Hzv3GX 8vcv70zwp9yTxuSXIzrhuf UjT1LOtvEDHjkubvGXn8YO igJBFvtGS0BCRmmHPgA3Hf CSFbCT6vibz0GJW7YMgmTI TkPfX8QCDcgCFsDUZobTmo RTfdy364MKK4QkJmWI6eC0 Gck0Z2zE1vwMDvGQMzlNTc GzUmQLXnza3skWHaBVtzc9 UwLGS6bcC1lHKyrKIiWHGy WJ64Hafsn6InWudyg8OmH0 0tcLY9LLscy0hjDI2lXlE5 zwKrGQsyf5oxaJ0cPtK1FY bbJL0tAO0gKTOmuE0tikxq XHBnYnJkcmhlYWRccGdicm ZkVf5fzWefMZJ8LEgvD1gb aF7rOiJ9ZBctK8uoaZ3yHI n4EMfeaTG7YCOkxV7tIJ5d bmajz6hlDAyeBTqgSYMxsg V5ndZ8GVWlkQRsB7TvgL5b IZQzPF1zridkk5wyPQF5CL yvCDJmGLN0WoSfVJZle5Th liu8KpJhc8RjnIKrJIsvX8 4kh123GMKvagFtD3tgyXBy wplkuXErnxknNVmkyhF3EY KahrVhn8WyAXBvZZX7WNqp IYowaEEiKVVwqPlir3zpQ6 RscGFyXHBsYWluXGYxXGZz MjBcbGFuZzEwMzNcaGljaF saMWfdShHoSBQoFQxbQ8hz UuUaC2BiNCUjBqLavYMkQ4 ggVGhpcyByZXBvcnQgbWF5 BBshJ4g1GEAvveLndKa1tr ObDhWdETHxKLE9RJgzeSLj FCIpm9OrgbvtnOPtMv2kaO UgAAEteU2oUOGkBJMqQVmx SZ4osLl4AESFuCGpeHLqJu KISKOhCO68isNoJQNBznqq h7Z9NKtqGEOyf3KvcAWaK6 hew2NwEEBjx06rBY8vy7K2 v3hnHEV0LZ8zm5OmCXMefE IlqAPoLIFib4Gvgdqki1Io YHNuklRjy5ZzYEUxacZxlJ NoRFLrekAdzp6dkxUxSDZl TGFcC2ZsyahpuDwhoaFhJR Tpcb6vqoMnMSX4CPFHSBKw ADLsz1YpeP8crIQGJAD4tO Acks5xdqCClJRcTXOdbs50 BNBnGX5tO5vvYGAlOGSzdh ZfzPIwx5AcZBPhaRH6vRCp BC4JZjOOz27tXEMoQXTZym CzDLJcsLodeUE0rfB2tM5d IChGREEpLlx+IFRoZSBGRE UdFC8ltgMki6GlxqJgfMst DNMxdHKmn8NjkBOig1PdsN jfv9IesFYzdOBdGA0tAVMo clxwYXIgVVRNQiBMYWJvcm B2v2NaOKNtEDNvSRB2hNbd bwq0DHUwcR4rLLEeN1xfyr zwIVaeKMTmb2JcdH4roIKX pHFaj0BwfDMmiRPKaDRbTA 6pgmPhIIhUXFtHUFI3xbRy QQEtc0LdOStiO0hgF40htE hxnTo9vRQ8RXF7lK5iKgt+ IFxwYXJccGFyIEFwcHJvcH BnZAGekHijqmVuK4JulzWc iI6tmEVtwcTbJM0cDZ2gD9 R9hTJnGAIirwSbb8kgYAwo dmUgYmVlbiByZXZpZXdlZC Ocd1DtBKsoYOB9ERqawnIb bmNsdWRpbmcgSCZFLCBTcG SnqKIwVJS3HZyhmeKruqZg FP8krB2ffGdwdH1baQUjbZ G7usfwZADkEFWttZcoNTGw ZX5geZoafP6uHtDqNeLlFG iiNQ4mFCDnV4khvIAgRCNl IBHnV6rzEbTykZ2pnRemQU xjZjJcZnMyMFxwYXJccGFy XHBsYWluXGYxXGZzMjBcbG FuZzEwMzNcaGljaFxmMVxk JwAuBHYrXTvlV5jtQpEhK4 VpWXOqOcXvfDJtX6nkCJyg JQX2BSQeSM9ijMYePV13jN Oiv1quDOwcyUwvkf6xO14x iCRhCKtqsRqlSYJwk61ze1 GaTKBjegPiki3bWSStcoH3 xF8xACEtqRheJYXfrDAtFQ Khd3IkYEcwqKZewoMiQHhi DONkRKAclBXbqdM2khBewa LxltZjUMXzySxvTRRni4Pq OZAaSAkju5Qvtk4cgVTbXT QmyvQWlIpjhWAvjZ3kK8Ao CGNfZTDtha6eYTIcaW3sEG ddq6AtcchtNWUeBWYgAOTt maUcmb9nJHLrpAPSHT9RNQ qsgCCnr6UibgSiC5xKDNS7 NUQwNjYwMjgxKSBleGNlcH QfVDPdoi78DMYwnD9zmWbo HBZlmC2qiN5slSdwmL7rJg JsHqBqYGtnRO5lFYIpQ6rw kPGyDDKuQKMnB4reTjCfkJ 9jaFxmMVxjZjJcZnMyMFxw YXJ9fQ== Embedded Images (test code = [id number]) [facility] [id number] 19:23:05* Test Item Value Reference Range Interpretation Comme nts Case Report (test code = [id number]) Surgical Pathology ?Case: [id number] ? Authorizing Provider: ?Dominic Keita MD ? [...] HPylori ? Final Diagnosis (test code = [id number]) z1llmTOxTXNrs5xuDYSvhH FuZzEwMzNcZnRuYmpcdWMx JGyukgWfEBmqwHzaESN4IG PyLY8mlQxasFv0cWjhDEPu wqY0dUWuWBzpn9qjKWA6b4 mqrwiaIWVwVTpsTs2sdICt tAueKqWvNCIaONn5eU13AR JlyQ6jlZKoXNy1ORKjeQFr ynSyFsXrRXYuyDUatZI7CA RhEM9zvyylYVsiQTgbKJWp jxP5DNOrvHEdQ3SjQIPvXH 9bcphpIPD7SMykFGKwBVT0 LiKbRHZut6Ttuly8ZnVtsG FyZFxwbGFpblxmczIwXHBh kwYUHaEBXJ6MTDXCQOJWB0 eFIRUSJJ3JXOQBCvlaoRWe LYByGAOpQXYIKD7OGRUjD2 dEMoRtOV9EFVPaQTUneAEx YZZegnGCSpQIGQ9YPX4VCJ wgQklPUFNZOlxwYXIgICAg TBNzPVpAY8VPRGHiPFBXX1 EEJYvGPKyiIq5tJMGCYE4X I6gNX4GIXXFIWD8LJKdyBD FyBQDnIFNwNT8RVPrbTGIF PH9QUYRPYRDRZJiHDERLHO FLGMjECUMPU8UNPElUGFTl nrrlMRWvBo9rN8LKXOHPLH wgQklPUFNZOlxwYXIgICAg VACyBZOHR3DDIiUNNE8IH0 6FHASORYMJBY8IZSQWABhX SU3SLTGQXWUDGAZZN7SyuH FyICAgICAgLSBOTyBFVklE IG2RVJTXTmAVGSeBSHRbUH lTRUFTRVxwYXIgICAgICAt ZM5ZVIdkAWPPTV1NJYIVKj dBTklTTVMgSURFTlRJRklF FSMBHDDWNE6JXm0FCCFQWa xwYXJccGFyfXtccnRmMVxz i9KkM2BbCzYsJAexxcXdFG NsUhhougtuQODlZAG7fqVg HPDjIZbzJFVjAIamEr8qvO TnxPxcBiYrPOAuk1xusjTO OGcdMmTgG611MQExBEzpt9 jji1NcZIGlaVUjl5W5SRGT pacuxIt8q9zoIcRhAeN1qL GvCEvnP8wnkaFthMXyL9Dc wBJjbRy5sTsiV90qg8O8Kl vkW3dmKGSlTVRxD9AvTG8u NAVoZdc8HGF5BMR9CPHyEF WwU7AeRN7wLDTqgXMuGBq2 b7chkVvpXYJiEVQ3y0qtPC edauQ1GA3caj6ygBe2s4cl czEgRGVmYXVsdCBQYXJhZ3 JilGzuFr6qlLp1lXovKjug DMA1Orj6EY1jcf02krv3gJ oeAARohsopTbP2ZUxnXMKw vslxUAj9NXhwPXIjnNC9FV JyfANaM8ZwZECxXC4rbau4 AGR5SDqnOGWeMsV2DEIscE QkUNKklQapMHrob520BFP9 EzGyCU4uR3Ujf1W1fN7moO KhIDKgrQYmClGcHPEgnu8e nGLfYZoks3GfRVR6feY0lK NpaBEvKBEtDQ17Tmeub4Wv BwpmYGN5DMRgycCbr5Xuw3 hqLzVqgeYyA1cyH2EmCSAo YSWsLWQtUyRhdzCop2Xxs9 RwyYRkxIf2n5odIGJlHNZx wZnwg4qdIAR2UGNgB2P4nH Boa2hyQBnlVNHbuDE1ikP5 DINstEQiF7CitB7iOFSaRO 2ujds7s7vgUPD7JDoaXNPm TsO2qkW8VLIocSKqCBBftM wbQXhzo165DGC5CgHjIBVw u5MkX3XccFeqB31pfXyvQ0 0rDJIhpKmviM7fuTrtaS7f ZjBcZnMyNFxxbFxwbGFpbl xmMVxmczIwXGxhbmcxMDMz XLcgK6xpUdAlXUHboEziBI hrr5SeKCBiZWWeNyngcnMq XHBhciBJIGhhdmUgcGVyc2 9uYWxseSByZXZpZXdlZCBh pKmgt4UdU3xxVR4wW0EzqE UmrzEjkeVxWHeeQNQrc8i8 gHCdjQhcg0JvfUCrMW01ct YzXDZiQHJ4QZNhy8xzOK13 zxjhAcVkuC37umRtvmOjSK Mfr5rkT6tqrGGeg9Ovn1Gw kwSnCSgns5DxHU1wyODziv wqfSZ1YEMezFKxfdNhabE0 ePutAIJnxZ7woA7mlSyhkS 3sXwCbLiNfYRemDG5eFHLv K1yteBGuGMUrNWBjS0rvTe ZqwQ2ioJkvNngevqX4IMEu cn19 Clinical Information (test code = [id number]) Shivani Schuler is a 47 year old female with IDA1. Gastric polyp x 6 r/o adenoma2.Duodenal Bx, r/o Celiac disease 3. Gastric Bx r/o HPylori Gross Description (test code = [id number]) l9xzkFMxUFRgpWFIRHR8LL HuHC0nsSnaxFm2nVqsKOYw qmI1iMJwYLsln7deSYG2d7 xrniMGOfcbRQAgQO7gMFpu FDGdOW1nExArYVMtMuWgSY BhcGVydzEyMjQwXHBhcGVy sTM5DHTxML3tmnsmXHowOU ngLDQatxH7VBYvoQCtA4To SOUqLU6tltzqTLU7PHLKDc pjMw6gbLBwuKwqVmYvAtMg YXJzZXQwXGZuaWwgQXJpYW o0iR4RApudXKL9QLRKNzor KllbpHaco3CyhLYdEBBzAI xcaWQgNTEwMDAgXFxkYiBP FtVlWgJ2Hmt4DVO3HjN9OR o4FVYOINMeEeraQRA4BkS4 NSb8YCGgVH0nVWyayUZoQL cjEcrxQEfbC397WQelZPVd O9FxP5WnGIxtIpAoZQfcVI TdEXQfGEqpDKQoJ3REEXOt GJE4GqOtGAZbZZb3QZfwK6 LEICGjZVXfXzS4QBOdVyT7 ONk7TVXHWr6dMQojBpEoLP i9JBJ9JXb4UhJpZBQfAyJa TQZhFXHsJRwjlJEzFZ6onA wrNGXiYD0SWAFhOWufJUDq GkSgM2VJW8yVCS7lLQxyxN JjaFxmczIyXHBhciANClxw IGWqAL4WOMSxBYxgIDv5km OdVWHtFgBpNFDeV81we7RJ u9KrUI0MLPg1piVywfoheL 5xWAYsvgUkJRrGaZApcI4h ocTRSDnpOIUxX4VqayOgRC paRPBvrk3aqBekUXhqAdVj bGVkIHdpdGggdGhlIHBhdG peuaQyP7V9kgAxSV6lLIZK WXYrtK9nAFKeGZWyu8VvrC KyjZkaX2FcvOGsOsQkh9y0 xJK0HRXndcHzMMEusOQyAC Jmsf3qMNfaIfJaB7O8RWTa BICnr10baKW5uvUgYmBjdV d8rWJrQUV0YO9viDkagyPu l2p6eL6fIYZnj5N2LFVka1 J5DIXpdcQzuJDspNZfXTMp UE5ttvWpFO88IUNkLSoyZN bsZHB4VDC7JGXksZUfy6mm xvcpZm4tCTjsKC0nRWomUB 87QBWqKNtbLKHmO0HeI0Q8 ZHfaBIGtBDJknAPbhC6jgs DphlQvfZq9QSOiHSV5pCUg vWkwNTXvIgemjWZ6HEPdVf TaqnTpq0DlfUv6vKSwHEuw DOBtyI2qbH2xXGPfPBWqsc HFHtqsQAYoMCoay4FjRTrv cGljWHNhMzAgDQpcZXBpY0 3il5CZx2Iqk5fkdBzqj2Iq vBCbMC0xaVWrPL4Ev0obJG UfaWDaYCA5TKyaw2wkXErd PVI9KYDeAbMcILCzMD9YEe OwWKcsFXt5YKtwDWk2ALi5 HF5TQtFeOXPnHlt2MlN4Ep YaYCb6PQzzNL6TGFB5BQJy QZGkZNqmROD9ZCNpXLw7YT IgXFxzcyAzIFxcZmwgXFxu A19ioZZkYUdiLfMnLVxtrD khPXPxRNM6OE1RVTTxGcCz V3ISG4kGSL4rMgqsukYsFF KojdYQGoppPRCmNO2ZBQJp NJcqKCs1bkZiIYPnEyBzJT ToJ95or2MFj8ByGH9DJWa3 shQafpsmzH2yDVFmlrXii1 IzMFxlcGljWHNiMzAgDQpT tDScbI2ybaIYRJyxNTTqL7 WqcfTkZIqaIUYtcv1tyMhs IGxhYmVsbGVkIHdpdGggdG gsDTRxvXamixEnG9C8hhXl CI1sJUANYZTnyT8dKUWhSO HnGOJjBBFfgF1fAOF7j4Vz mfEhILHXYABcwIkxEW16aL BjZWxpYWMgZGlzZWFzZSBh ruIiegJla94ghyJse8BcBH 7oqVelNPfGYDrlDkNpCF5l UGRjsiIfr9UmKS6oQUHsaB TnFTFgmfojyBMpKNx5zEYi HUBkXtNjmSmrl6DjAPZvFS saAI04pzRfEG4pJKqbSE3l ZSfoXM9pGQBdJULyVYNiVm NskWKjRuJjdSIlMlYfY62s FyIJaEMmj1HvU0kmHW3wuF VlFayfvYEdBLQiyWqdr3Dm aSMcRYJog8WmcVHxZDntYC 8eACQ0Kt3oxGXbICGfojQ0 a4EyQVrvOYOnVyaeQDCqTR tdc9NaVPQtgIDRm7BePX8R XHBhciANClxzYTMwXGVwaW HTi8XmMUVSHbajtPrzRoOq tVBaXfE3TEVgpLSaYNT2WE 3loLbqTYSaOTs0OVqnRYWi E0QhA6HrLIxwFlXcVMoaUA SnMROoHRghKQXbE3RACCSp KEA6BmKmWMDzRHh0WSiuG9 GMDYZgLJXkDjX9HCN6XuG2 HSe4VXBFXm3nFVgbKfGlIC IuVqB6ITu7GmIyIZIrZyEu KTGnQTPrZNuwqQUcHM7xkW iqGHLbWRFhMJA0JHFbwRFF u7WhRSPvVXwyTvGjGJEWTH PEKS0WFsIEOSIpDkAicMVk HJ0QAWCfjwOiZUvkoUhysH 6yyXSgK2dlEsVrLihcnEcj TmVzdERvYzEgDQpcbHRycG FyXGxpbjBccmluMFxzYjMw CLSgpZEOa4QlVULPZaOsPU NpbWVuIEMgaXMgcmVjZWl2 XVGgtM9kIi8efKOhyM1uhA AlOBjtWCFak2g3dPW7qPGi vCC6cDSooPucLmFpDA7seI VeDADQEK48rUArquHgICMl xY1lIZNjAZDmFJV7ybagHW ALBWV3dJAki5Y9TLhrAKU5 aM6vzDuaKyTjC0G2SGTnNJ Ovt84peCD3mqMlMdGjVZKj or3xiV6xXHlnutOqlLxxmd Mso1B5KOKvy7O6VSQxscLb lGKbbAFzTLNeUzQ5OCGeFb S0RBAuGBLadXHcJKYjRK2f VGhlIHNwZWNpbWVuIGlzIG SnkMNbeqLuZJXwef26Q9yn EFBpbF9zo2ynUtTyBLSjUH ExeUKwzVH9WXTtaL6loR26 ekEyzwZKXE4exURkRU3YPN NiMFxlcGljWHNiMCANClxw YIPdYJlwk4ZlSTnngBgnTI PwLiVgAXvVnOrmJEALI1ic fJCuPZdgEAFEBUeXV8WTWV 4SDLMbxWNSUMR8QD5wJAaq DOPjK6LdV4MsouL0m4vicP weu7LlmYVwUJ9lbXOfKF6Z XHBhcmQgDQp9 Disclaimer (test code = [id number]) e1lxiFBjCYYio6ijNAUoqY FuZzEwMzNcZnRuYmpcdWMx KEguwtAxQMmzi2ToQ4BfHf AwMFxhbnNpXGRlZmxhbmcx QKVwRIL6qqKyJMKyDEvuBN EeIEnpQo8xfPEumSizWoZy IGEum2vbfcJGLZaaYvCnM2 11MLZgTFxja9fbm1FcXEMh vVJus7T2GLQPjkhsiUq0bO poB34xv9N0FxlsO8toSEIl KJKlS0WfWI8qZVOhGwv4DQ L7ZTQ0JQWrUOMvX1BpLH0d AINykUTlJVe9a2axxFdvFU KvSDZ7l9epNRohvmAfLJ3h xk2ykBs8r0qtmiPuLLVoMU XqfIZECCWjC3PywSguZt4o qZr3mJtcMbeaQSG6Wdo3YC 4ffd59bjw5jVkpUXBsorwb DxD1SZvkZODjomkpMPe8BM hqSZZeiWD9YGXrkSDgH7En IJRmYG9pmte8LGK6NGznHH JbEkS7DIFxmOGuZQXnkBja MZfzt895VSR5PhSmSH3qH8 Hjh8A6yJ3jlNMaZTNqgTLk SbRnOHFsen3doQPyUDvkw0 AhJKD4mcL8lCMlgTHyQSGt SG94Rkxjr2KoYnijx8KuX9 0adQB9ZQdbf6fwYA0rHeW9 itBnTXprh2atfM6aHqU8NA qoUR2dUJ0dIPFgbJ0vzemy XHBnYnJkcmhlYWRccGdicm NdQt6emKxySAB7HYzaL8sd rO1kYtK4OViaV1dlgZ2mHM x4UBozqPM9UGNneT8jPD6h lihsd5uxJQtiABuzQNDnfw G4drT3ZZYehWZlI0WnjV0h NRMcLH6xkqvxo5fbNLS3JL clJKBlXIW3GaQzFFBbv0Cj hvx5TdBec5WtlBYhNLtoL8 9fo695UNNxxeItW8mftMRz svnwwWVtcxrrIZsnrxT3JV IagwHmh6JqAKAzYKK3EVzv IDyexLBdNESypQcau6kxW1 RscGFyXHBsYWluXGYxXGZz MjBcbGFuZzEwMzNcaGljaF gtMEqtCuAmNQOnITeaM9qk ShOyV4KuPDQsSrWjiXGdG2 ggVGhpcyByZXBvcnQgbWF5 XKemC2j7XIWpddNraGd1cj HyTtUhIJMmKYG6MPrfqSVk JIIei2RzemimuLAoLj9xnO TcGSOpsZ3nMORnVNTqAPjg GY2clVc9DJTLuRVeiEWlSa BWYILyON62xwRaJUSZredi i4D8TSjrEHQfv9CiiZNfE6 tmk6GdMCQmt10bXA9ng0Z9 i8zbQAF4GR6xb8VkZRJarJ ZuqFCbSSGjt2Dvliczq4Cv HSOhbyQiq1NqHSHvcaHdzP BaGNGnniNacq1zfsTlUIZi DBMhE5FdmenhkUngmfJuQL Lffn8rbkIlLJP1LCZXWKJy YHRml1VbqE3meKKNFGT4bV Mgnt2kntVTtSCsWAWewz22 BOAhSG3tK3wvWMRjCBJfjg SdyNBsc6DcGXJytDI2fCQo AQ2YLvQJl31wUMFhENFDwb RyGSXdlVnxeOA0nbZ6uC7d IChGREEpLlx+IFRoZSBGRE ZkDU0khsJgu3WpfiTqzJhw OYXlcQJau6KzdIBjn8KcwG ton9VxnESgnBTiVI0oEHNm clxwYXIgVVRNQiBMYWJvcm K0c1WrUTOcWWIgICP0fGiy gfr2WFLdoJ1iAOMuX9tgzx suQBykPSIfk6HijC5feCCR iBKox2QzvWUpmYAPmKOgZM 0paqVwQMuJEOfRNRO9ezXy GRPpc5SiDGbtJ9rcI68kfM mrzKo1jQE0YWY5wA0zHwj+ IFxwYXJccGFyIEFwcHJvcH RzKMZahYpgrwEsN5HhgwDk dH1ckSEaewZaSX8hEZ1wL3 E9nBFlWJHwxsArw1khTVxd dmUgYmVlbiByZXZpZXdlZC Scq8FqZLhqGNB4FZkbtfJb bmNsdWRpbmcgSCZFLCBTcG RcfYMnOGM7WCiemsWcyuBr SE9vhW4mbPqkjN3hiDCzuD F7sopnHARqPUDixLmcYJCm GN2jfIbdoO5dFxWsLcYwGF gfUM8pLGEqI8dfbVFiCYCo RXXxT4rvOiZaoL4ejFkzIH xjZjJcZnMyMFxwYXJccGFy XHBsYWluXGYxXGZzMjBcbG FuZzEwMzNcaGljaFxmMVxk PtRrZETvCTflO5kzUbYvT7 NkVAAnVtWcuVSpO4fuZZnm TSQ1FAHfCG4jcTAuSY31oF Mod6gmDWmapPrdmr1rT45d hXTxULgcfNfpOYMfj72kw4 OoBBCpyjTzfz6uVERoxzU3 wQ9kFNUotCfrRJGakXAdHB Qsl9SfIMoxjCHqdsRdUVgn MTTzSXMauNWjphX9muUadu IxuqKaWJAwtJdsHYYzk1Df ZARgMTldw0Svko0leODuEL FbpsWYpQwcuJIwdS0bR5Ls MDRcQEYhlr1oOPIlwJ0bOX qrs4WhlgxgRQHbVAUdPTCy ipEgcy3mANBcsBNAHE6VKD dxnKOze5LqdgKcV4iFSBJ6 NUQwNjYwMjgxKSBleGNlcH ZtNNAiog49SYHnkU6ilNiy VDDauS5ndW3oaKhxyI2wOg BoFrKeRUzvUX2eKAZjB9uf tGWwMPMjIUSdW3meAoQecX 9jaFxmMVxjZjJcZnMyMFxw YXJ9fQ== Embedded Images (test code = 1512731197) [facility] [id number] 19:23:05* Test Item Value Reference Range Interpretation Comme nts Case Report (test code = 7496900202) Surgical Pathology ?Case: [id number] ? Authorizing Provider: ?Dominic Keita MD ? [...] HPylori ? Final Diagnosis (test code = 8837989638) [id number] FuZzEwMzNcZnRuYmpcdWMx CNqwwpCqINtvwAmkSLR8DN XlXE4uuNrwaCt7yUqiGYVh biG2bUTrUDosl1voUTP2a4 emiaqgKRLeDPmkNi5gmBUe gBvoHkQaTKQbCXe0jW85BH QpjB6blRDbTPy4CNZftRMm ijZwZpNeIMEauWGgpBH0JH SzFT7bpwnyZDopYJzeALZp gmM4GJKzsNSqP8OjIKTyDN 4syzotDXK6RFhsZUOgUHE6 YcCvTZOtx3Akpue2DfQquG FyZFxwbGFpblxmczIwXHBh bsYVOiFEYI3IJMIYYQMXR4 wOGHIOCI0IXJQMTstvmIGw OGCcAQLnPLGTPV1WKZAfH7 kQJuDyOS1QTGZgCEUilKMy LAJrbiOREpXMCT5GAV2XVT wgQklPUFNZOlxwYXIgICAg EJPjDKdFK9XNAAEdELIYF3 HZLAcGEVdxGa5mGWUCGG2R X3sTO5XMHQMAHC6YBLjtWP LaMNSiKSUqMM8HHNgaDUAM US6XWPIXXYBQABzVZAHJCX PRTZnDCVYCS5GILZkHTWKi hagvKBTaGy4rC7OWHWDRMC wgQklPUFNZOlxwYXIgICAg DTDzSOFRF8DTMeVICR6UJ5 0EFOQAQWYZRJ5XCEOLLIwF GW8CQEFYWVWJRKERT8IdjZ FyICAgICAgLSBOTyBFVklE JZ4BYVKMOrIAGVyUEIHiLI lTRUFTRVxwYXIgICAgICAt TI8UJAejTRNBNK8DLBWXOp dBTklTTVMgSURFTlRJRklF BLXPBYWQDN2QSd9WPCEBHh xwYXJccGFyfXtccnRmMVxz n7OaC7EoYtIjQLkadeMuXC AoTymicdehOFXvQPF2fiUh USJfNNksBDClBXkdZr8diY EqoVmxSoDsRNXcy8cfswGZ FIckLsOlY211MSOfVYxvz4 xao5QyQTOxsMQvk7Z8XASZ qjzwgYb1m7ftXzCmFfQ8wA UxTEcpA1ghitWtgFDiL8Ug uOMwwWt2lMlzV25qo4C8Lk sxI8xgRUVrJOOzZ8PeXZ3v UGXaMcp5HNY2BXC8VGRxHI GeP5FwKR0hCXChmDPpRSi8 d1uecUqfKGMnOYV2g3giJC mbadK0QH9nea0tuZx3k2wa czEgRGVmYXVsdCBQYXJhZ3 SgyAgyVo0yeSr7vHalLvia LIM6Cwb6NJ9xgv96kns0jD ygLYZrxhxeNkV0URviASJo ixyfGJd5XMauWMZofEL7NU IcrFMkD5InOAYhRI1qaaf0 KHF9LYdjUHKnUnK3BRAzuP YtUONeaBzyMKjhm678CZD8 EyWnJU7sD4Vnd3K6xO0amJ KiWBNesRTdKdEhHVVfyb0q bXFpLKemg0KuZZI8bkI7qH MgpTUgZVUeVP61Hveyh0Rl HdvuOOO4RMElvlHri7Ysx7 maBgMwgkGtE6nkE7EbMULq WXKuSVYjFiMdrlDgl6Vci5 BsyUXfgNt9u2jaVJAxNSAz vRhwb9wfKGA6NFGaS6L8sA Uns2pqVHldUUGgaAK9xeP8 IEWruGLwN7DviR8ePYEbMM 0ezxd9n6wlXCX4IBijBGRk HdL6hiC0VZHezMPbDKCwyS byYMbub135KQR4KjWnBDYf m0MmG8SeoDszX94ohFnaE8 3yBPBhpBzrdY1frQqvlJ7y ZjBcZnMyNFxxbFxwbGFpbl xmMVxmczIwXGxhbmcxMDMz UKvfV4wuIaKvXKZkgDgeES gey1QdWCMvXLTvNgbtgeCi XHBhciBJIGhhdmUgcGVyc2 9uYWxseSByZXZpZXdlZCBh uBdgl1DtR0pxMN5dP5LnwM MknzOzwkKbUNytQNRdz5l3 dFAkqEpne3IqjDPgSF28sh EsFDTaSPU1YHQhu8jbKV24 oneiSeRkfR20anGonlQpPD Iah2ivD1wkzOPtl8Ywx1Oz agSaUZcnj3EaFP1szIKjts lxuBN5BCQbhUJevsFwkjF2 gSgfZKZtwH5dfR2wdXogtU 3kSbCkAvVcUOudAK2kJLUg Q1xdlQFfSJWbJZBvX0shFc NtvS7deCvgErjywmX5ZZYz cn19 Clinical Information (test code = [id number]) Shivani Schuler is a 47 year old female with IDA1. Gastric polyp x 6 r/o adenoma2.Duodenal Bx, r/o Celiac disease 3. Gastric Bx r/o HPylori Gross Description (test code = 8006880870) l2xxsTDeEJOvbJIAAXP1CS NtXT1ebJegzXq8tFfdCLMm ykE6gUDgEMjxc1abTEF5q1 jvvwTXPiwdIFJzKR7nEJhz FQViOR2uMwGeSMZdYgIwPR BhcGVydzEyMjQwXHBhcGVy rWQ5DUHdLA8yddigETtePE pfVPHipbJ6ZNPpzMMsI9Rk ZLKiWA4cwscaGZJ6MBZYWd dnCb3ncHRtwRrpWoWvPpPd YXJzZXQwXGZuaWwgQXJpYW e8sG4PNmdqJNB2BQJWTuab PcrjuYjiv2KheMWgQCTiNL xcaWQgNTEwMDAgXFxkYiBP XrZeGyO5Rfr7FLU0SiP5GO l7AHAZZQVnTrdyBXU3SpN7 UNy3DQKdYJ4uTSsyoKPbQC peIhxpWBvsC649BXlhTPTh E5NiD9SgFGckFrSoPFbqRC MnURCiLIthYBXlF3ZQOIYo FPL5RjKgDVKsTRl1SPlsK1 PHOLFnYRSkOgG8PYAdRnL7 HWz1DMFBIr0mNQrmNbBfUH i0BCO1OBi7FuLyHCSkKqZj VPFrEKXvXZiqwKYxFG5whL vjLNTqNH2NBRYwRMtsYXYz BuLoT9BRM0eSBU7lANcdwE JjaFxmczIyXHBhciANClxw BAAhUL8ANOIpRMyiEIr3ok MaWYGcJmCrJZCtL06zm6RL g2VvSD0TMId5blXddpbfgO 2gGLJoljYpBXlUnFHsyK3x vhEDKNxaBMElL0VkbkMbTB ilMALhsk8csQbbEHkcIcVq bGVkIHdpdGggdGhlIHBhdG fzjaUuG7T8zdXtJY0vVIXN EVYfiH2eNWDjSQUjd5WtdJ QqzMjnE6JvpJEeTeNxc1r5 rBE8HXEezzJgDQKopQDuLL Vxin6pYAztPgLpH3X9COFd DAIco87jfXD9gfHoWdTqzL z9nVHqGMF2SS7wbMbktyJc b8x5wU8xRPXak5X6FORlr0 T6NNDiafIxmRBcpVJmUUPy OR6dzzByOX83YKLgBFirUO wqFMQ7CGH1BMBvkVCra0jk tagxRa1gQYahPX5tTUfoNQ 95ACTdNRusJLWxQ6GyZ3Z1 NLhxQRJrKBSyyWDcmE0dxi IyksMrjCs1EWAiVFH0nLSm yXnlUJBdFliuzBQ6RSQfYi QlltQun1HubLu6xVQtNUwu HWCfeX6jdI6pTIMzFROkgh DWKbfzLBPiRJwmv5TkSQjt cGljWHNhMzAgDQpcZXBpY0 8bv8ZOx3Vvi6xjuImlz4Xb sBFrAN8ljRFkTN7Ic8pdPD ClqNOtFRY0UJpgs0zfVNna BQT4ZFHnZmRiBJKyVJ7CMq NfATxvNLq1MWpdMQj3TYd9 EE1XVvRlFFXjHir3OnO3Cy PfMAb9KGolTE1FGBU5IXSs HRXhVLuoHMF9FGBqIKu3FA IgXFxzcyAzIFxcZmwgXFxu D02wsIMmBUnnOjRtQBxrvO vjCOQxJNT7DB0NVMHhEyBi H5JVE8kTKK8bEcuudmRvXF WnypVIUzxpNDFoCV1ICVUg AMyxRQj9qmPhCINoUmRkHQ ExI25ur9OUc6KrGI7BVJu5 itOaxfdidF4hHUAetrDwi5 IzMFxlcGljWHNiMzAgDQpT oAJswT1ktkGRUXxyKZRgG4 PmkbLhVEzcSBYqnq8yuVka IGxhYmVsbGVkIHdpdGggdG rxGDAkgGotngWxZ3Y4sdEg NE9vDIIXVFMshP0gFQTuDO OlRRTtTZYowY6qBRU1c6Eg zdBaQIXLDEWsjItfUM99cL BjZWxpYWMgZGlzZWFzZSBh dmWpymQsf89yluDur2XaWW 4hvYnoDCcUOUogEiEeOU0p HWUhfvBty7ZfEG0pHGNwnC YrAZTevcqbfWBaLWn7pWSu KUEfZeGcqVcyh4LcXXIzYM diEM23peGeMS1vTYadCV9p KUquQH6xPOEgTCQyZUVrYm QtbPEyQxPuyACvNlSbW64u BxLXnUWzz3TqN7hoFN0dzA TlZowilMAjUMUswEyhj6Gt rWXpAJYxs0RwtZXvJZkyNY 9fTFZ0Fs8vkTTjFIIvhpQ5 w3FbJOprYXVzUpuxIVZmHJ dvh6RaEOHxtOFYg4WcOR6R XHBhciANClxzYTMwXGVwaW HIv7FlOXGGGlbgdVxcWwBm iVDgGaZ0FQXixJUnGXB8WN 4juSndAOOwHBo9VIojAXZw E8BqC2JiTSseJlEhOFjqWG ByLGAfLRgwOVVrE7SHPDKg WCO7KxQwGSTuWQg0EZhhB3 QAUYZbSNBnIyP8ENZ9CrX5 IXn7JQKFSd3vPCjuErZbAG QkCgN4ZMc5VhXtMUXgXzWw AOHsUJKnVRuybGZqFK2qyH stSHGaZFQuXYC4AUJciFQM l2RnVYBrCMivEcNaDXLUGR RDVA3OCkKLXVUrZfYxpYKi RO2IDPPzjbErMCujuOrszA 5nyPJiD6ltHtOdIbvdfDsf TmVzdERvYzEgDQpcbHRycG FyXGxpbjBccmluMFxzYjMw IZDsmHIAl6GjPSLYTmBdEK NpbWVuIEMgaXMgcmVjZWl2 XLRbhG4zZh6obFTqeR1htX ExTGbsUSDza6t5iIT4oGIz lSW7rZBzmHbkAlOwVV1vrD EgYGTOCH13bAUjvgYoWAPe mD0eVROnLRNrTHH9svdeVK WQFMU5lUCnu7M3QUupOQV9 bG3yiJibMgNrG6G1WJKsHJ Hjh89ozSA8svPkLmKvABVd ov7hiX3zSTaxkaNosWrghz Xnm6P0SGBaj5V6ZUSyleCp fEOniQVnLNLcZhR8XXNuAs B5WWSlRZPieEBwWKMpHM0u VGhlIHNwZWNpbWVuIGlzIG WzqKSjunIhDAJfjr20R9pf IZRkqT5ue8ywXeXpXBPeET RqiOTegEU3MWFonR8grT10 qdKclvQQQM5ziUQoHI7IHF NiMFxlcGljWHNiMCANClxw OMLeRFstk9WsLNskeTsqJF XsAgKxZAvSkAfsITOFD0ko lADqIKvrQDXAGOmME7IWKI 2JAMDrdCNJQOT1SR9gHSyq DIIsJ3WlH5WsghZ8g7othL kqr7EbfJPqYD4saOMbZR0Z XHBhcmQgDQp9 Disclaimer (test code = [id number]) f0knoDOrEPUxh9kpUSVeqA FuZzEwMzNcZnRuYmpcdWMx JRxblwPkGZfpl5JeG5WkWb AwMFxhbnNpXGRlZmxhbmcx UFOcTMH9ktPsAIQiUIbqIX AmCRpxQq7swVIebJlsMpYy LKNzq3hvkkDRXOrpEiZvY9 37AFJhUJdcz5orc6CiFCIr eFIxw4K2JWCXniqqwVo3gH peB67pb5L0BfytF5wcZQEq PNYwF2JeXR4vWVSaDtn8TT G0VNL1BGHiXGHdV8AsWE9o RGSqpGCePRg6e1qtqZyhLH DaVTG0u9duQLbwzcRgAF6l hz6fqSx6g8eolnDgGADrZV PzqGMPSTCfL4DseFkyCy8e hJu5wLyhPmatKUI7Moz7AH 7ibu76svo9iXskRIQhcsqy QgH2FTkkOFIphgljOCd4AI dnMPOseQW8CONjqJEqL3Ir ABLfPK7wvkm8GFQ5FZdkYR TtCdR9GPXonVWvTTNqkMzd HVsdh554MSK8RoZuPH0cE2 Eur6J7bJ9hgOTmZPSmjSQe AgKiDZEcfa4xbVKhJEsbq5 HsUMC6ioW0tIBrdGNsCLVz KG40Znukp8DzYixxj8QaV0 8brWB1ESwpe6rmBH4fSzT0 szSgYZixx8tzaS2sUfZ6DY zzCL0yUT7eQFSylX5oewsx XHBnYnJkcmhlYWRccGdicm VbLx0plZloLKE5HUjaD6hd xI0eUpD0UKczU8wugX5kZF b0PLribHR3JLDquP8uHN2j dveco0uyTJzmUKjzBHLpsj M5zqG6SFQsaHLkR3TksO0y TYKtVS6bhowxh5djOAX1RY enYJKoXTY0YfQqEWCnw0Ac mds5MyEog7UgbDHyHIavJ0 8vq541XHZnywOjD2dbvLVc cmxczUZkyyzdSTedxeY4PN LsrgVxp7PxEPGuWRG4NQuj VEuwmJXiDQCgfXbhr4lfE2 RscGFyXHBsYWluXGYxXGZz MjBcbGFuZzEwMzNcaGljaF dfJCnrKsMkDUIwVRtaU9ep HdUjE8SgHXCeVgApdJAlZ0 ggVGhpcyByZXBvcnQgbWF5 BJaxF9g8RYVzwkWrcPi2ft YeKiYuOGDuOJJ1OUotjNOz YQBsq4MeetqkrSMhWj0vqH GwYBKykJ0mYEVnJVPpGRjm XL2cnRy0EAXQkUYmmEYlUe XFCLEyNJ19qbMoUUHBnggg p6U9NNjzSBTov7VcbYGaM3 ydm0SwKEViq21jJL9gn7F5 a7reAEF4PF3qr8EfBQBqkW UioWYdAABoj7Zpsomof2Pf AGKjpnMtd2TmJQZgyxAwmY MuSACfgtVoqq7qulImEFCe CRZiW2RalptjmYtiefCyOR Frvs7qhiTqZXH5IQGWCXOt OIOhu6BkeG0uxLFXVQY2qJ Ltju9gssYFjBGdMYKalw38 BVHuSI4bD0tjFKPpZPUykc BcjJAdv5KvVTUatNA2pYXp IE5CEzIDg40qQSRzZPYKiz FzVUMmkBocgOV3xgA9kT1s IChGREEpLlx+IFRoZSBGRE MgOX1xzzRec0LnrdZluUta AIGhaWWvy9IftCRgj6HqqH ymy3ZmwQFxlAEwYE6aCUHs clxwYXIgVVRNQiBMYWJvcm S8t0WyZGCnFQUtMRF5yHib zsi9BNXqxZ0oQEBtW1evpf nhCMmaTKWjs2FwlL7gwQCA cGXab3AqbBPphHJZkQYrBC 6cguVmFEkAJWfRXDD7wkAz JXYun2ZuJFnfH1ndD61pbX tgeXt4pBO6XHI0rL8kVdn+ IFxwYXJccGFyIEFwcHJvcH QkFNKgbFetseJmO3YrpiQa oB7cvWUwfbTnWW9cZS6rQ7 A5gIPgIXEzzmRsq8ixJGec dmUgYmVlbiByZXZpZXdlZC Oxu7EtIWwySEI3LIlxtsYu bmNsdWRpbmcgSCZFLCBTcG HlpIVfVKD0NWzvnfQgqnAm KP8uuW6nyMqzoE0xfVVhtV F6lkerZLSzKJLldEkhMLEb BJ3xyBgqwE9oCzWqXnWiSF vrQW6xLLCfU9yytKBwTUSy YTCcH4heAyPauX6pgPueZY xjZjJcZnMyMFxwYXJccGFy XHBsYWluXGYxXGZzMjBcbG FuZzEwMzNcaGljaFxmMVxk MaErFKFnQCypX7gsBbNmW3 RnZLOnNaDomTTqR8knDReg QTF5HNRiUQ1jpZBzAI87uR Gvd5qpRPhhaJjbdd2dF20z rOAwIIpktAwiZCWzm84db5 RsSYZaefNcvl7cEKEsouN7 eD0fBWKmwCjlKKOmpBNoYY Fwo2DrMSlsfZJapcNsRCzq JDHxNDYnnAYncyJ0dyUlbl PnnaTmHXWndJtcVHFkd6Rr SCUnUZqzc4Cmyf9xgVPeSU HigxMJrSdsdMAnkZ5sF5Ix WAMoOCIxpe8hIJVphX1cWT qfw1XfwsfaASYiMDDcPMPz lqQrmb2qERKlnZBIRM4WIQ lgbXObm5OwfdKmB0tKBIH5 NUQwNjYwMjgxKSBleGNlcH ZdZCJvmg72TIHtfN4ohPrf DJOjhO8olN8cnKvqlK8oIv WuXpZrZNreYW7bGBXeX2ob xCEiOVVqBQYuT5oaAvPqvO 9jaFxmMVxjZjJcZnMyMFxw YXJ9fQ== Embedded Images (test code = 7858913319) [facility]. METABOLIC PANEL ([id number])2022-11-03 17:25:32* Test Item Value Reference Range Interpretation Comme nts NA (test code = 2920222019) 139 mmol/L 135-145 K (test code = 7274125003) 4.2 mmol/L 3.5-5.0 CL (test code = 8800221675) 105 mmol/L 98-108 CO2 TOTAL (test code = 3498278567) 26 mmol/L 23-31 AGAP (test code = 5916395287) 8 2-16 BUN (test code = 5964814779) 9 mg/dL 7-23 GLUCOSE (test code = 9568786938) 93 mg/dL 70-110 CREATININE (test code = 5310659617) 0.60 mg/dL 0.50-1.04 TOTAL BILI (test code = 1944569476) 0.2 mg/dL 0.1-1.1 CALCIUM (test code = 6992793501) 9.2 mg/dL 8.6-10.6 T PROTEIN (test code = 8548574267) 7.0 g/dL 6.3-8.2 ALBUMIN (test code = 6948230121) 4.2 g/dL 3.5-5.0 ALK PHOS (test code = 9474597741) 118 U/L 34-122 ALTv (test code = 1742-6) 34 U/L 5-35 AST(SGOT) (test code = 3124183834) 34 U/L 13-40 eGFR (test code = 3597460779) 108.1 mL/min/1.73m2 ZAINAB (test code = ZAINAB) [...] or abnormalities in imaging tests). [facility]. METABOLIC PANEL ([id number])2022-11-03 17:25:32* Test Item Value Reference Range Interpretation Comme nts NA (test code = 1650329197) 139 mmol/L 135-145 K (test code = 9145134798) 4.2 mmol/L 3.5-5.0 CL (test code = 7377920704) 105 mmol/L 98-108 CO2 TOTAL (test code = 7729116892) 26 mmol/L 23-31 AGAP (test code = 9499821023) 8 2-16 BUN (test code = 2341956130) 9 mg/dL 7-23 GLUCOSE (test code = 8140225629) 93 mg/dL 70-110 CREATININE (test code = 5287843736) 0.60 mg/dL 0.50-1.04 TOTAL BILI (test code = 1112221292) 0.2 mg/dL 0.1-1.1 CALCIUM (test code = 8729568656) 9.2 mg/dL 8.6-10.6 T PROTEIN (test code = 7955013939) 7.0 g/dL 6.3-8.2 ALBUMIN (test code = 1366308378) 4.2 g/dL 3.5-5.0 ALK PHOS (test code = 0631124068) 118 U/L 34-122 ALTv (test code = 1742-6) 34 U/L 5-35 AST(SGOT) (test code = 5436968320) 34 U/L 13-40 eGFR (test code = 9594142049) 108.1 mL/min/1.73m2 ZAINAB (test code = ZAINAB) [...] or abnormalities in imaging tests). [facility]. METABOLIC PANEL ([id number])2022-11-03 17:25:32* Test Item Value Reference Range Interpretation Comme nts NA (test code = 3916352571) 139 mmol/L 135-145 K (test code = 0624599788) 4.2 mmol/L 3.5-5.0 CL (test code = 7923005891) 105 mmol/L 98-108 CO2 TOTAL (test code = 0534468400) 26 mmol/L 23-31 AGAP (test code = 4071166261) 8 2-16 BUN (test code = 8158797082) 9 mg/dL 7-23 GLUCOSE (test code = 8594120992) 93 mg/dL 70-110 CREATININE (test code = 8297564944) 0.60 mg/dL 0.50-1.04 TOTAL BILI (test code = 2779510442) 0.2 mg/dL 0.1-1.1 CALCIUM (test code = 4510155334) 9.2 mg/dL 8.6-10.6 T PROTEIN (test code = 9546185895) 7.0 g/dL 6.3-8.2 ALBUMIN (test code = 2930832019) 4.2 g/dL 3.5-5.0 ALK PHOS (test code = 8208359138) 118 U/L 34-122 ALTv (test code = 1742-6) 34 U/L 5-35 AST(SGOT) (test code = 5762235970) 34 U/L 13-40 eGFR (test code = 2240875690) 108.1 mL/min/1.73m2 ZAINAB (test code = ZAINAB) [...] or abnormalities in imaging tests). [facility]. METABOLIC PANEL ([id number])2022-11-03 17:25:32* Test Item Value Reference Range Interpretation Comme nts NA (test code = 1172433685) 139 mmol/L 135-145 K (test code = 9050027868) 4.2 mmol/L 3.5-5.0 CL (test code = 7697791220) 105 mmol/L 98-108 CO2 TOTAL (test code = 5386829467) 26 mmol/L 23-31 AGAP (test code = 4777292662) 8 2-16 BUN (test code = 1362135497) 9 mg/dL 7-23 GLUCOSE (test code = 5455227706) 93 mg/dL 70-110 CREATININE (test code = 9262675900) 0.60 mg/dL 0.50-1.04 TOTAL BILI (test code = 3914259121) 0.2 mg/dL 0.1-1.1 CALCIUM (test code = 3736665958) 9.2 mg/dL 8.6-10.6 T PROTEIN (test code = 6355427890) 7.0 g/dL 6.3-8.2 ALBUMIN (test code = 5258195138) 4.2 g/dL 3.5-5.0 ALK PHOS (test code = 4540992013) 118 U/L 34-122 ALTv (test code = 1742-6) 34 U/L 5-35 AST(SGOT) (test code = 0549828695) 34 U/L 13-40 eGFR (test code = 5117095044) 108.1 mL/min/1.73m2 ZAINAB (test code = ZAINAB) [...] or abnormalities in imaging tests). [facility]. METABOLIC PANEL ([id number])2022-11-03 17:25:32* Test Item Value Reference Range Interpretation Comme nts NA (test code = 7705305024) 139 mmol/L 135-145 K (test code = 1970989662) 4.2 mmol/L 3.5-5.0 CL (test code = 8227805330) 105 mmol/L 98-108 CO2 TOTAL (test code = 1029913002) 26 mmol/L 23-31 AGAP (test code = 5155069514) 8 2-16 BUN (test code = 1629841264) 9 mg/dL 7-23 GLUCOSE (test code = 6766389507) 93 mg/dL 70-110 CREATININE (test code = 2922982409) 0.60 mg/dL 0.50-1.04 TOTAL BILI (test code = 9955084269) 0.2 mg/dL 0.1-1.1 CALCIUM (test code = 1004627203) 9.2 mg/dL 8.6-10.6 T PROTEIN (test code = 0222295480) 7.0 g/dL 6.3-8.2 ALBUMIN (test code = 0101799866) 4.2 g/dL 3.5-5.0 ALK PHOS (test code = 6737115376) 118 U/L 34-122 ALTv (test code = 1742-6) 34 U/L 5-35 AST(SGOT) (test code = 4623900682) 34 U/L 13-40 eGFR (test code = 8785534777) 108.1 mL/min/1.73m2 ZAINAB (test code = ZAINAB) [...] or abnormalities in imaging tests). [facility]. METABOLIC PANEL ([id number])2022-11-03 17:25:32* Test Item Value Reference Range Interpretation Comme nts NA (test code = 7554909464) 139 mmol/L 135-145 K (test code = 7961479672) 4.2 mmol/L 3.5-5.0 CL (test code = 8319646870) 105 mmol/L 98-108 CO2 TOTAL (test code = 0344954508) 26 mmol/L 23-31 AGAP (test code = 6102574103) 8 2-16 BUN (test code = 1482019701) 9 mg/dL 7-23 GLUCOSE (test code = 4303384042) 93 mg/dL 70-110 CREATININE (test code = 0318262615) 0.60 mg/dL 0.50-1.04 TOTAL BILI (test code = 6572959581) 0.2 mg/dL 0.1-1.1 CALCIUM (test code = 3024190287) 9.2 mg/dL 8.6-10.6 T PROTEIN (test code = 1305046909) 7.0 g/dL 6.3-8.2 ALBUMIN (test code = 7694941966) 4.2 g/dL 3.5-5.0 ALK PHOS (test code = 8089746514) 118 U/L 34-122 ALTv (test code = 1742-6) 34 U/L 5-35 AST(SGOT) (test code = 5064698881) 34 U/L 13-40 eGFR (test code = 1330469694) 108.1 mL/min/1.73m2 ZAINAB (test code = ZAINAB) [...] or abnormalities in imaging tests). [facility]. METABOLIC PANEL ([id number])2022-11-03 17:25:32* Test Item Value Reference Range Interpretation Comme nts NA (test code = 2484926980) 139 mmol/L 135-145 K (test code = 2902072554) 4.2 mmol/L 3.5-5.0 CL (test code = 6247409484) 105 mmol/L 98-108 CO2 TOTAL (test code = 8496931027) 26 mmol/L 23-31 AGAP (test code = 0892730514) 8 2-16 BUN (test code = 0132538719) 9 mg/dL 7-23 GLUCOSE (test code = 3089508717) 93 mg/dL 70-110 CREATININE (test code = 5159772167) 0.60 mg/dL 0.50-1.04 TOTAL BILI (test code = 5668570253) 0.2 mg/dL 0.1-1.1 CALCIUM (test code = 4832939469) 9.2 mg/dL 8.6-10.6 T PROTEIN (test code = 3089601904) 7.0 g/dL 6.3-8.2 ALBUMIN (test code = 0648824446) 4.2 g/dL 3.5-5.0 ALK PHOS (test code = 1312047551) 118 U/L 34-122 ALTv (test code = 1742-6) 34 U/L 5-35 AST(SGOT) (test code = 9348364540) 34 U/L 13-40 eGFR (test code = 4523433726) 108.1 mL/min/1.73m2 ZAINAB (test code = ZAINAB) [...] or abnormalities in imaging tests). [facility]. METABOLIC PANEL ([id number])2022-11-03 17:25:32* Test Item Value Reference Range Interpretation Comme nts NA (test code = 5272409615) 139 mmol/L 135-145 K (test code = 9455326265) 4.2 mmol/L 3.5-5.0 CL (test code = 9773865295) 105 mmol/L 98-108 CO2 TOTAL (test code = 1133751364) 26 mmol/L 23-31 AGAP (test code = 9615036688) 8 2-16 BUN (test code = 5964788014) 9 mg/dL 7-23 GLUCOSE (test code = 9762650880) 93 mg/dL 70-110 CREATININE (test code = 1261348274) 0.60 mg/dL 0.50-1.04 TOTAL BILI (test code = 9280487514) 0.2 mg/dL 0.1-1.1 CALCIUM (test code = 6554381611) 9.2 mg/dL 8.6-10.6 T PROTEIN (test code = 1123431287) 7.0 g/dL 6.3-8.2 ALBUMIN (test code = 1885176732) 4.2 g/dL 3.5-5.0 ALK PHOS (test code = 1173032339) 118 U/L 34-122 ALTv (test code = 1742-6) 34 U/L 5-35 AST(SGOT) (test code = 0494073341) 34 U/L 13-40 eGFR (test code = 4455919933) 108.1 mL/min/1.73m2 ZAINAB (test code = ZAINAB) [...] or abnormalities in imaging tests). [facility]. METABOLIC PANEL ([id number])2022-11-03 17:25:32* Test Item Value Reference Range Interpretation Comme nts NA (test code = 7328846897) 139 mmol/L 135-145 K (test code = 5690720093) 4.2 mmol/L 3.5-5.0 CL (test code = 6322666842) 105 mmol/L 98-108 CO2 TOTAL (test code = 5416644388) 26 mmol/L 23-31 AGAP (test code = 7029667660) 8 2-16 BUN (test code = 3481731276) 9 mg/dL 7-23 GLUCOSE (test code = 4926102210) 93 mg/dL 70-110 CREATININE (test code = 3177542357) 0.60 mg/dL 0.50-1.04 TOTAL BILI (test code = 6345195026) 0.2 mg/dL 0.1-1.1 CALCIUM (test code = 7032013269) 9.2 mg/dL 8.6-10.6 T PROTEIN (test code = 3820946922) 7.0 g/dL 6.3-8.2 ALBUMIN (test code = 2554986401) 4.2 g/dL 3.5-5.0 ALK PHOS (test code = 5316012837) 118 U/L 34-122 ALTv (test code = 1742-6) 34 U/L 5-35 AST(SGOT) (test code = 9946588138) 34 U/L 13-40 eGFR (test code = 32882-1) 108.1 mL/min/1.73m2 ZAINAB (test code = ZAINAB) [...] or abnormalities in imaging tests). [facility]. METABOLIC PANEL ([id number])2022-11-03 17:25:32* Test Item Value Reference Range Interpretation Comme nts NA (test code = 0378441938) 139 mmol/L 135-145 K (test code = 9997028297) 4.2 mmol/L 3.5-5.0 CL (test code = 5881193586) 105 mmol/L 98-108 CO2 TOTAL (test code = 8452248314) 26 mmol/L 23-31 AGAP (test code = 7020868632) 8 2-16 BUN (test code = 2366267212) 9 mg/dL 7-23 GLUCOSE (test code = 6462204633) 93 mg/dL 70-110 CREATININE (test code = 4900995396) 0.60 mg/dL 0.50-1.04 TOTAL BILI (test code = 4372953753) 0.2 mg/dL 0.1-1.1 CALCIUM (test code = 9003972592) 9.2 mg/dL 8.6-10.6 T PROTEIN (test code = 9569415935) 7.0 g/dL 6.3-8.2 ALBUMIN (test code = 9583145762) 4.2 g/dL 3.5-5.0 ALK PHOS (test code = 7360824215) 118 U/L 34-122 ALTv (test code = 1742-6) 34 U/L 5-35 AST(SGOT) (test code = 2747580683) 34 U/L 13-40 eGFR (test code = 13700-3) 108.1 mL/min/1.73m2 ZAINAB (test code = ZAINAB) [...] or abnormalities in imaging tests). [facility]. METABOLIC PANEL ([id number])2022-11-03 17:25:32* Test Item Value Reference Range Interpretation Comme nts NA (test code = 8231830055) 139 mmol/L 135-145 K (test code = 5358538249) 4.2 mmol/L 3.5-5.0 CL (test code = 7443694477) 105 mmol/L 98-108 CO2 TOTAL (test code = 1515718731) 26 mmol/L 23-31 AGAP (test code = 7740445541) 8 2-16 BUN (test code = 4478921586) 9 mg/dL 7-23 GLUCOSE (test code = 8442984618) 93 mg/dL 70-110 CREATININE (test code = 7580038550) 0.60 mg/dL 0.50-1.04 TOTAL BILI (test code = 5668073816) 0.2 mg/dL 0.1-1.1 CALCIUM (test code = 7243361376) 9.2 mg/dL 8.6-10.6 T PROTEIN (test code = 1856899194) 7.0 g/dL 6.3-8.2 ALBUMIN (test code = 0937262180) 4.2 g/dL 3.5-5.0 ALK PHOS (test code = 9154528890) 118 U/L 34-122 ALTv (test code = 1742-6) 34 U/L 5-35 AST(SGOT) (test code = 1697889189) 34 U/L 13-40 eGFR (test code = 60406-0) 108.1 mL/min/1.73m2 ZAINAB (test code = ZAINAB) [...] or abnormalities in imaging tests). [facility]. METABOLIC PANEL ([id number])2022-11-03 17:25:32* Test Item Value Reference Range Interpretation Comme nts NA (test code = 8917085143) 139 mmol/L 135-145 K (test code = 9422016142) 4.2 mmol/L 3.5-5.0 CL (test code = 5980306516) 105 mmol/L 98-108 CO2 TOTAL (test code = 1841275485) 26 mmol/L 23-31 AGAP (test code = 2205409585) 8 2-16 BUN (test code = 7770111363) 9 mg/dL 7-23 GLUCOSE (test code = 0290742355) 93 mg/dL 70-110 CREATININE (test code = 6613431819) 0.60 mg/dL 0.50-1.04 TOTAL BILI (test code = 0560097349) 0.2 mg/dL 0.1-1.1 CALCIUM (test code = 8714726822) 9.2 mg/dL 8.6-10.6 T PROTEIN (test code = 6698580795) 7.0 g/dL 6.3-8.2 ALBUMIN (test code = 6198756945) 4.2 g/dL 3.5-5.0 ALK PHOS (test code = 8871130327) 118 U/L 34-122 ALTv (test code = 1742-6) 34 U/L 5-35 AST(SGOT) (test code = 9087748898) 34 U/L 13-40 eGFR (test code = 65794-1) 108.1 mL/min/1.73m2 ZAINAB (test code = ZAINAB) [...] or abnormalities in imaging tests). [facility]. METABOLIC PANEL ([id number])2022-11-03 17:25:32* Test Item Value Reference Range Interpretation Comme nts NA (test code = 9754497992) 139 mmol/L 135-145 K (test code = 9044748587) 4.2 mmol/L 3.5-5.0 CL (test code = 3223325440) 105 mmol/L 98-108 CO2 TOTAL (test code = 2453628138) 26 mmol/L 23-31 AGAP (test code = 7866331253) 8 2-16 BUN (test code = 7112853648) 9 mg/dL 7-23 GLUCOSE (test code = 6581502084) 93 mg/dL 70-110 CREATININE (test code = 8606990763) 0.60 mg/dL 0.50-1.04 TOTAL BILI (test code = 6972351308) 0.2 mg/dL 0.1-1.1 CALCIUM (test code = 8558763281) 9.2 mg/dL 8.6-10.6 T PROTEIN (test code = 6102101567) 7.0 g/dL 6.3-8.2 ALBUMIN (test code = 6825612776) 4.2 g/dL 3.5-5.0 ALK PHOS (test code = 4539115298) 118 U/L 34-122 ALTv (test code = 1742-6) 34 U/L 5-35 AST(SGOT) (test code = 9461277947) 34 U/L 13-40 eGFR (test code = 25753-5) 108.1 mL/min/1.73m2 ZAINAB (test code = ZAINAB) [...] or abnormalities in imaging tests). [facility]. METABOLIC PANEL ([id number])2022-11-03 17:25:32* Test Item Value Reference Range Interpretation Comme nts NA (test code = 5595373619) 139 mmol/L 135-145 K (test code = 1353432806) 4.2 mmol/L 3.5-5.0 CL (test code = 8953950659) 105 mmol/L 98-108 CO2 TOTAL (test code = 5828415466) 26 mmol/L 23-31 AGAP (test code = 4589385361) 8 2-16 BUN (test code = 2815777221) 9 mg/dL 7-23 GLUCOSE (test code = 8126065390) 93 mg/dL 70-110 CREATININE (test code = 0475781592) 0.60 mg/dL 0.50-1.04 TOTAL BILI (test code = 5787948288) 0.2 mg/dL 0.1-1.1 CALCIUM (test code = 4955120730) 9.2 mg/dL 8.6-10.6 T PROTEIN (test code = 6326106735) 7.0 g/dL 6.3-8.2 ALBUMIN (test code = 6243930905) 4.2 g/dL 3.5-5.0 ALK PHOS (test code = 7816420248) 118 U/L 34-122 ALTv (test code = 1742-6) 34 U/L 5-35 AST(SGOT) (test code = 5029476235) 34 U/L 13-40 eGFR (test code = 09188-3) 108.1 mL/min/1.73m2 ZAINAB (test code = ZAINAB) [...] or abnormalities in imaging tests). [facility]. METABOLIC PANEL ([id number])2022-11-03 17:25:32* Test Item Value Reference Range Interpretation Comme nts NA (test code = 4910059602) 139 mmol/L 135-145 K (test code = 3687065604) 4.2 mmol/L 3.5-5.0 CL (test code = 1708768656) 105 mmol/L 98-108 CO2 TOTAL (test code = 7620349301) 26 mmol/L 23-31 AGAP (test code = 3414005162) 8 2-16 BUN (test code = 4774090409) 9 mg/dL 7-23 GLUCOSE (test code = 7192003927) 93 mg/dL 70-110 CREATININE (test code = 0915307082) 0.60 mg/dL 0.50-1.04 TOTAL BILI (test code = 5669305704) 0.2 mg/dL 0.1-1.1 CALCIUM (test code = 7808549675) 9.2 mg/dL 8.6-10.6 T PROTEIN (test code = 4198514524) 7.0 g/dL 6.3-8.2 ALBUMIN (test code = 8108562110) 4.2 g/dL 3.5-5.0 ALK PHOS (test code = 8427531087) 118 U/L 34-122 ALTv (test code = 1742-6) 34 U/L 5-35 AST(SGOT) (test code = 6634179561) 34 U/L 13-40 eGFR (test code = 93959-9) 108.1 mL/min/1.73m2 ZAINAB (test code = ZAINAB) [...] or abnormalities in imaging tests). [facility]. METABOLIC PANEL ([id number])2022-11-03 17:25:32* Test Item Value Reference Range Interpretation Comme nts NA (test code = 8313169922) 139 mmol/L 135-145 K (test code = 6547037484) 4.2 mmol/L 3.5-5.0 CL (test code = 6808179564) 105 mmol/L 98-108 CO2 TOTAL (test code = 1609352037) 26 mmol/L 23-31 AGAP (test code = 9439707603) 8 2-16 BUN (test code = 1488914201) 9 mg/dL 7-23 GLUCOSE (test code = 8548707119) 93 mg/dL 70-110 CREATININE (test code = 9640985189) 0.60 mg/dL 0.50-1.04 TOTAL BILI (test code = 1897179120) 0.2 mg/dL 0.1-1.1 CALCIUM (test code = 0465432304) 9.2 mg/dL 8.6-10.6 T PROTEIN (test code = 2813628238) 7.0 g/dL 6.3-8.2 ALBUMIN (test code = 2859327836) 4.2 g/dL 3.5-5.0 ALK PHOS (test code = 2694142305) 118 U/L 34-122 ALTv (test code = 1742-6) 34 U/L 5-35 AST(SGOT) (test code = 1998208402) 34 U/L 13-40 eGFR (test code = 79995-1) 108.1 mL/min/1.73m2 ZAINAB (test code = ZAINAB) [...] or abnormalities in imaging tests). [facility] METABOLIC PANEL ([id number])2022-11-03 17:25:32* Test Item Value Reference Range Interpretation Comme nts NA (test code = 2839606285) 139 mmol/L 135-145 K (test code = 4104891064) 4.2 mmol/L 3.5-5.0 CL (test code = 8011221116) 105 mmol/L 98-108 CO2 TOTAL (test code = 4596919009) 26 mmol/L 23-31 AGAP (test code = 3862936096) 8 2-16 BUN (test code = 0660955514) 9 mg/dL 7-23 GLUCOSE (test code = 7548595321) 93 mg/dL 70-110 CREATININE (test code = 9547103804) 0.60 mg/dL 0.50-1.04 TOTAL BILI (test code = 8311593673) 0.2 mg/dL 0.1-1.1 CALCIUM (test code = 1777956636) 9.2 mg/dL 8.6-10.6 T PROTEIN (test code = 9903589647) 7.0 g/dL 6.3-8.2 ALBUMIN (test code = 0870559252) 4.2 g/dL 3.5-5.0 ALK PHOS (test code = 6963422758) 118 U/L 34-122 ALTv (test code = 1742-6) 34 U/L 5-35 AST(SGOT) (test code = 5363962996) 34 U/L 13-40 eGFR (test code = 44343-0) 108.1 mL/min/1.73m2 ZAINAB (test code = ZAINAB) [...] [facility] ([id number])[facility]-03 17:25:32* Test Item Value Reference Range Interpretation Comme nts NA (test code = 0599932767) 139 mmol/L 135-145 K (test code = 7078065640) 4.2 mmol/L 3.5-5.0 CL (test code = 3937799858) 105 mmol/L 98-108 CO2 TOTAL (test code = 0180832106) 26 mmol/L 23-31 AGAP (test code = 5158590665) 8 2-16 BUN (test code = 0409404578) 9 mg/dL 7-23 GLUCOSE (test code = 3394606660) 93 mg/dL 70-110 CREATININE (test code = 2746169010) 0.60 mg/dL 0.50-1.04 TOTAL BILI (test code = 7870082860) 0.2 mg/dL 0.1-1.1 CALCIUM (test code = 0832822744) 9.2 mg/dL 8.6-10.6 T PROTEIN (test code = 1800708453) 7.0 g/dL 6.3-8.2 ALBUMIN (test code = 0858030999) 4.2 g/dL 3.5-5.0 ALK PHOS (test code = 4634825233) 118 U/L 34-122 ALTv (test code = 1742-6) 34 U/L 5-35 AST(SGOT) (test code = 5740653341) 34 U/L 13-40 eGFR (test code = 53126-2) 108.1 mL/min/1.73m2 ZAINAB (test code = ZAINAB) [...] or urine or abnormalities in imaging tests). [facility] WITH [id number] 17:18:52* Test Item Value Reference Range Interpretation Comme nts WBC (test code = 6690-2) 7.41 See_Comment [[employer]] The system which generated this result transmitted reference range: 4.30 - 11.10 10*3/?L. The reference range was not used to interpret this result as normal/abnormal. RBC (test code = 789-8) 4.20 See_Comment [[employer]] The system which generated this result [...] g/dL 31.6-35.1 L RDW-SD (test code = 41396-8) 46.2 fL 39.0-49.9 RDW-CV (test code = 788-0) 17.9 % 12.0-15.5 H PLT (test code = 777-3) 304 See_Comment [Automated messa ge] The system which generated this result transmitted reference range: 166 - 358 10*3/?L. The reference range was not used to interpret this result as normal/abnormal. MPV (test code = 82772-4) 11.0 fL 9.5-12.9 NRBC/100 WBC (test code = 0628981502) 0.0 See_Comment [Automated [employer] ssage] The system which generated this result transmitted reference range: 0.0 - 10.0 /100 WBCs. The reference range was not used to interpret this result as normal/abnormal. NRBC x10^3 (test code = 9346190306) See_Comment [Automated messa ge] The system which generated this result transmitted reference range: 10*3/?L. The reference range was not used to interpret this result as normal/abnormal. GRAN MAT (NEUT) % (test code = 770-8) 68.6 % IMM GRAN % (test code = 5169538661) 0.70 % LYMPH % (test code = 736-9) 19.8 % MONO % (test code = 5905-5) 5.3 % EOS % (test code = 713-8) 5.1 % BASO % (test code = 706-2) 0.5 % GRAN MAT x10^3(ANC) (test code = 1154676514) 5.08 10*3/uL 1.88-7.09 IMM GRAN x10^3 (test code = 4067862783) 0.05 10*3/uL 0.00-0.06 LYMPH x10^3 (test code = 731-0) 1.47 10*3/uL 1.32-3.29 MONO x10^3 (test code = 742-7) 0.39 10*3/uL 0.33-0.92 EOS x10^3 (test code = 711-2) 0.38 10*3/uL 0.03-0.39 BASO x10^3 (test code = 704-7) 0.04 10*3/uL 0.01-0.07 Lab Interpretation (test code = 41043-8) Abnormal [facility] WITH [id number] 17:18:52* Test Item Value Reference Range Interpretation [...] g/dL 31.6-35.1 L RDW-SD (test code = 68972-2) 46.2 fL 39.0-49.9 RDW-CV (test code = 788-0) 17.9 % 12.0-15.5 H PLT (test code = 777-3) 304 See_Comment [Automated messa ge] The system which generated this result transmitted reference range: 166 - 358 10*3/?L. The reference range was not used to interpret this result as normal/abnormal. MPV (test code = 80321-7) 11.0 fL 9.5-12.9 NRBC/100 WBC (test code = 2763911437) 0.0 See_Comment [Automated me ssage] The system which generated this result transmitted reference range: 0.0 - 10.0 /100 WBCs. The reference range was not used to interpret this result as normal/abnormal. NRBC x10^3 (test code = 6056133062) See_Comment [Automated messa ge] The system which generated this result transmitted reference range: 10*3/?L. The reference range was not used to interpret this result as normal/abnormal. GRAN MAT (NEUT) % (test code = 770-8) 68.6 % IMM GRAN % (test code = 9542036906) 0.70 % LYMPH % (test code = 736-9) 19.8 % MONO % (test code = 5905-5) 5.3 % EOS % (test code = 713-8) 5.1 % BASO % (test code = 706-2) 0.5 % GRAN MAT x10^3(ANC) (test code = 9035540941) 5.08 10*3/uL 1.88-7.09 IMM GRAN x10^3 (test code = 4682336709) 0.05 10*3/uL 0.00-0.06 LYMPH x10^3 (test code = 731-0) 1.47 10*3/uL 1.32-3.29 MONO x10^3 (test code = 742-7) 0.39 10*3/uL 0.33-0.92 EOS x10^3 (test code = 711-2) 0.38 10*3/uL 0.03-0.39 BASO x10^3 (test code = 704-7) 0.04 10*3/uL 0.01-0.07 Lab Interpretation (test code = 62911-4) Abnormal [facility] WITH [id number] 17:18:52* Test Item Value Reference Range Interpretation [...] g/dL 31.6-35.1 L RDW-SD (test code = 39095-2) 46.2 fL 39.0-49.9 RDW-CV (test code = 788-0) 17.9 % 12.0-15.5 H PLT (test code = 777-3) 304 See_Comment [Automated messa ge] The system which generated this result transmitted reference range: 166 - 358 10*3/?L. The reference range was not used to interpret this result as normal/abnormal. MPV (test code = 40023-4) 11.0 fL 9.5-12.9 NRBC/100 WBC (test code = 5238240686) 0.0 See_Comment [Automated [employer]acket[employer] ssage] The system which generated this result transmitted reference range: 0.0 - 10.0 /100 WBCs. The reference range was not used to interpret this result as normal/abnormal. NRBC x10^3 (test code = 1260164430) See_Comment [Automated messa ge] The system which generated this result transmitted reference range: 10*3/?L. The reference range was not used to interpret this result as normal/abnormal. GRAN MAT (NEUT) % (test code = 770-8) 68.6 % IMM GRAN % (test code = 5316644190) 0.70 % LYMPH % (test code = 736-9) 19.8 % MONO % (test code = 5905-5) 5.3 % EOS % (test code = 713-8) 5.1 % BASO % (test code = 706-2) 0.5 % GRAN MAT x10^3(ANC) (test code = 0958724657) 5.08 10*3/uL 1.88-7.09 IMM GRAN x10^3 (test code = 5848756615) 0.05 10*3/uL 0.00-0.06 LYMPH x10^3 (test code = 731-0) 1.47 10*3/uL 1.32-3.29 MONO x10^3 (test code = 742-7) 0.39 10*3/uL 0.33-0.92 EOS x10^3 (test code = 711-2) 0.38 10*3/uL 0.03-0.39 BASO x10^3 (test code = 704-7) 0.04 10*3/uL 0.01-0.07 Lab Interpretation (test code = 71940-7) Abnormal [facility] WITH [id number] 17:18:52* Test Item Value Reference Range Interpretation Comme nts WBC (test code = 6690-2) 7.41 See_Comment [Automated Flywheel] The system which generated this result transmitted reference range: 4.30 - 11.10 10*3/?L. The reference range was not used to interpret this result as normal/abnormal. RBC (test code = 789-8) 4.20 See_Comment [Automated Flywheel] The system which generated this result transmitted [...] g/dL 31.6-35.1 L RDW-SD (test code = 62572-9) 46.2 fL 39.0-49.9 RDW-CV (test code = 788-0) 17.9 % 12.0-15.5 H PLT (test code = 777-3) 304 See_Comment [Automated messa ge] The system which generated this result transmitted reference range: 166 - 358 10*3/?L. The reference range was not used to interpret this result as normal/abnormal. MPV (test code = 63619-4) 11.0 fL 9.5-12.9 NRBC/100 WBC (test code = 9393526836) 0.0 See_Comment [Automated me ssage] The system which generated this result transmitted reference range: 0.0 - 10.0 /100 WBCs. The reference range was not used to interpret this result as normal/abnormal. NRBC x10^3 (test code = 5022638257) See_Comment [Automated messa ge] The system which generated this result transmitted reference range: 10*3/?L. The reference range was not used to interpret this result as normal/abnormal. GRAN MAT (NEUT) % (test code = 770-8) 68.6 % IMM GRAN % (test code = 3161470448) 0.70 % LYMPH % (test code = 736-9) 19.8 % MONO % (test code = 5905-5) 5.3 % EOS % (test code = 713-8) 5.1 % BASO % (test code = 706-2) 0.5 % GRAN MAT x10^3(ANC) (test code = 9847507753) 5.08 10*3/uL 1.88-7.09 IMM GRAN x10^3 (test code = 3588178301) 0.05 10*3/uL 0.00-0.06 LYMPH x10^3 (test code = 731-0) 1.47 10*3/uL 1.32-3.29 MONO x10^3 (test code = 742-7) 0.39 10*3/uL 0.33-0.92 EOS x10^3 (test code = 711-2) 0.38 10*3/uL 0.03-0.39 BASO x10^3 (test code = 704-7) 0.04 10*3/uL 0.01-0.07 Lab Interpretation (test code = 28211-2) Abnormal [facility] WITH [id number] 17:18:52* Test Item Value Reference Range Interpretation [...] g/dL 31.6-35.1 L RDW-SD (test code = 82334-9) 46.2 fL 39.0-49.9 RDW-CV (test code = 788-0) 17.9 % 12.0-15.5 H PLT (test code = 777-3) 304 See_Comment [Automated messa ge] The system which generated this result transmitted reference range: 166 - 358 10*3/?L. The reference range was not used to interpret this result as normal/abnormal. MPV (test code = 00308-3) 11.0 fL 9.5-12.9 NRBC/100 WBC (test code = 8618862620) 0.0 See_Comment [Automated Bracketz ssage] The system which generated this result transmitted reference range: 0.0 - 10.0 /100 WBCs. The reference range was not used to interpret this result as normal/abnormal. NRBC x10^3 (test code = 0211515953) See_Comment [Automated messa ge] The system which generated this result transmitted reference range: 10*3/?L. The reference range was not used to interpret this result as normal/abnormal. GRAN MAT (NEUT) % (test code = 770-8) 68.6 % IMM GRAN % (test code = 9188698941) 0.70 % LYMPH % (test code = 736-9) 19.8 % MONO % (test code = 5905-5) 5.3 % EOS % (test code = 713-8) 5.1 % BASO % (test code = 706-2) 0.5 % GRAN MAT x10^3(ANC) (test code = 7582322489) 5.08 10*3/uL 1.88-7.09 IMM GRAN x10^3 (test code = 3313840274) 0.05 10*3/uL 0.00-0.06 LYMPH x10^3 (test code = 731-0) 1.47 10*3/uL 1.32-3.29 MONO x10^3 (test code = 742-7) 0.39 10*3/uL 0.33-0.92 EOS x10^3 (test code = 711-2) 0.38 10*3/uL 0.03-0.39 BASO x10^3 (test code = 704-7) 0.04 10*3/uL 0.01-0.07 Lab Interpretation (test code = 62349-8) Abnormal [facility] WITH [id number] 17:18:52* Test Item Value Reference Range Interpretation Comme nts WBC (test code = 6690-2) 7.41 See_Comment [Automated kWhOURSa ge] The system which generated this result transmitted reference range: 4.30 - 11.10 10*3/?L. The reference range was not used to interpret this result as normal/abnormal. RBC (test code = 789-8) 4.20 See_Comment [Automated kWhOURSa ge] The system which generated this result [...] g/dL 31.6-35.1 L RDW-SD (test code = 51173-8) 46.2 fL 39.0-49.9 RDW-CV (test code = 788-0) 17.9 % 12.0-15.5 H PLT (test code = 777-3) 304 See_Comment [Automated messa ge] The system which generated this result transmitted reference range: 166 - 358 10*3/?L. The reference range was not used to interpret this result as normal/abnormal. MPV (test code = 47375-3) 11.0 fL 9.5-12.9 NRBC/100 WBC (test code = 9843705015) 0.0 See_Comment [Automated Bracketz ssage] The system which generated this result transmitted reference range: 0.0 - 10.0 /100 WBCs. The reference range was not used to interpret this result as normal/abnormal. NRBC x10^3 (test code = 8078195489) See_Comment [Automated messa ge] The system which generated this result transmitted reference range: 10*3/?L. The reference range was not used to interpret this result as normal/abnormal. GRAN MAT (NEUT) % (test code = 770-8) 68.6 % IMM GRAN % (test code = 8862655472) 0.70 % LYMPH % (test code = 736-9) 19.8 % MONO % (test code = 5905-5) 5.3 % EOS % (test code = 713-8) 5.1 % BASO % (test code = 706-2) 0.5 % GRAN MAT x10^3(ANC) (test code = 1636769073) 5.08 10*3/uL 1.88-7.09 IMM GRAN x10^3 (test code = 4242960740) 0.05 10*3/uL 0.00-0.06 LYMPH x10^3 (test code = 731-0) 1.47 10*3/uL 1.32-3.29 MONO x10^3 (test code = 742-7) 0.39 10*3/uL 0.33-0.92 EOS x10^3 (test code = 711-2) 0.38 10*3/uL 0.03-0.39 BASO x10^3 (test code = 704-7) 0.04 10*3/uL 0.01-0.07 Lab Interpretation (test code = 14355-6) Abnormal [facility] WITH [id number] 17:18:52* Test Item Value Reference Range Interpretation Comme nts WBC (test code = 6690-2) 7.41 See_Comment [Automated messa ge] The system which generated this result transmitted reference range: 4.30 - 11.10 10*3/?L. The reference range was not used to interpret this result as normal/abnormal. RBC (test code = 789-8) 4.20 See_Comment [Automated kWhOURSa ge] The system which generated this result [...] g/dL 31.6-35.1 L RDW-SD (test code = 39116-9) 46.2 fL 39.0-49.9 RDW-CV (test code = 788-0) 17.9 % 12.0-15.5 H PLT (test code = 777-3) 304 See_Comment [Automated messa ge] The system which generated this result transmitted reference range: 166 - 358 10*3/?L. The reference range was not used to interpret this result as normal/abnormal. MPV (test code = 87542-9) 11.0 fL 9.5-12.9 NRBC/100 WBC (test code = 5837790206) 0.0 See_Comment [Automated Bracketz ssage] The system which generated this result transmitted reference range: 0.0 - 10.0 /100 WBCs. The reference range was not used to interpret this result as normal/abnormal. NRBC x10^3 (test code = 4929894156) See_Comment [Automated messa ge] The system which generated this result transmitted reference range: 10*3/?L. The reference range was not used to interpret this result as normal/abnormal. GRAN MAT (NEUT) % (test code = 770-8) 68.6 % IMM GRAN % (test code = 9918221720) 0.70 % LYMPH % (test code = 736-9) 19.8 % MONO % (test code = 5905-5) 5.3 % EOS % (test code = 713-8) 5.1 % BASO % (test code = 706-2) 0.5 % GRAN MAT x10^3(ANC) (test code = 4218353079) 5.08 10*3/uL 1.88-7.09 IMM GRAN x10^3 (test code = 1749337705) 0.05 10*3/uL 0.00-0.06 LYMPH x10^3 (test code = 731-0) 1.47 10*3/uL 1.32-3.29 MONO x10^3 (test code = 742-7) 0.39 10*3/uL 0.33-0.92 EOS x10^3 (test code = 711-2) 0.38 10*3/uL 0.03-0.39 BASO x10^3 (test code = 704-7) 0.04 10*3/uL 0.01-0.07 Lab Interpretation (test code = 14205-2) Abnormal [facility] WITH [id number] 17:18:52* Test Item Value Reference Range Interpretation [...] g/dL 31.6-35.1 L RDW-SD (test code = 94997-9) 46.2 fL 39.0-49.9 RDW-CV (test code = 788-0) 17.9 % 12.0-15.5 H PLT (test code = 777-3) 304 See_Comment [Automated messa ge] The system which generated this result transmitted reference range: 166 - 358 10*3/?L. The reference range was not used to interpret this result as normal/abnormal. MPV (test code = 52818-0) 11.0 fL 9.5-12.9 NRBC/100 WBC (test code = 4919215841) 0.0 See_Comment [Automated Bracketz ssage] The system which generated this result transmitted reference range: 0.0 - 10.0 /100 WBCs. The reference range was not used to interpret this result as normal/abnormal. NRBC x10^3 (test code = 8526895236) See_Comment [Automated kWhOURSa ge] The system which generated this result transmitted reference range: 10*3/?L. The reference range was not used to interpret this result as normal/abnormal. GRAN MAT (NEUT) % (test code = 770-8) 68.6 % IMM GRAN % (test code = 3056694652) 0.70 % LYMPH % (test code = 736-9) 19.8 % MONO % (test code = 5905-5) 5.3 % EOS % (test code = 713-8) 5.1 % BASO % (test code = 706-2) 0.5 % GRAN MAT x10^3(ANC) (test code = 1295191728) 5.08 10*3/uL 1.88-7.09 IMM GRAN x10^3 (test code = 6350749326) 0.05 10*3/uL 0.00-0.06 LYMPH x10^3 (test code = 731-0) 1.47 10*3/uL 1.32-3.29 MONO x10^3 (test code = 742-7) 0.39 10*3/uL 0.33-0.92 EOS x10^3 (test code = 711-2) 0.38 10*3/uL 0.03-0.39 BASO x10^3 (test code = 704-7) 0.04 10*3/uL 0.01-0.07 Lab Interpretation (test code = 10891-7) Abnormal [facility] WITH [id number] 17:18:52* Test Item Value Reference Range Interpretation [...] g/dL 31.6-35.1 L RDW-SD (test code = 56355-3) 46.2 fL 39.0-49.9 RDW-CV (test code = 788-0) 17.9 % 12.0-15.5 H PLT (test code = 777-3) 304 See_Comment [Automated messa ge] The system which generated this result transmitted reference range: 166 - 358 10*3/?L. The reference range was not used to interpret this result as normal/abnormal. MPV (test code = 69159-0) 11.0 fL 9.5-12.9 NRBC/100 WBC (test code = 4547182130) 0.0 See_Comment [Automated Bracketz ssage] The system which generated this result transmitted reference range: 0.0 - 10.0 /100 WBCs. The reference range was not used to interpret this result as normal/abnormal. NRBC x10^3 (test code = 9557216407) See_Comment [Automated messa ge] The system which generated this result transmitted reference range: 10*3/?L. The reference range was not used to interpret this result as normal/abnormal. GRAN MAT (NEUT) % (test code = 770-8) 68.6 % IMM GRAN % (test code = 1270491264) 0.70 % LYMPH % (test code = 736-9) 19.8 % MONO % (test code = 5905-5) 5.3 % EOS % (test code = 713-8) 5.1 % BASO % (test code = 706-2) 0.5 % GRAN MAT x10^3(ANC) (test code = 9715963253) 5.08 10*3/uL 1.88-7.09 IMM GRAN x10^3 (test code = 4979243477) 0.05 10*3/uL 0.00-0.06 LYMPH x10^3 (test code = 731-0) 1.47 10*3/uL 1.32-3.29 MONO x10^3 (test code = 742-7) 0.39 10*3/uL 0.33-0.92 EOS x10^3 (test code = 711-2) 0.38 10*3/uL 0.03-0.39 BASO x10^3 (test code = 704-7) 0.04 10*3/uL 0.01-0.07 Lab Interpretation (test code = 19561-0) Abnormal [facility] WITH [id number] 17:18:52* Test Item Value Reference Range Interpretation [...] g/dL 31.6-35.1 L RDW-SD (test code = 18057-8) 46.2 fL 39.0-49.9 RDW-CV (test code = 788-0) 17.9 % 12.0-15.5 H PLT (test code = 777-3) 304 See_Comment [Automated kWhOURSa ge] The system which generated this result transmitted reference range: 166 - 358 10*3/?L. The reference range was not used to interpret this result as normal/abnormal. MPV (test code = 17478-9) 11.0 fL 9.5-12.9 NRBC/100 WBC (test code = 8586820431) 0.0 See_Comment [Automated Bracketz ssage] The system which generated this result transmitted reference range: 0.0 - 10.0 /100 WBCs. The reference range was not used to interpret this result as normal/abnormal. NRBC x10^3 (test code = 5178602838) See_Comment [Automated kWhOURSa ge] The system which generated this result transmitted reference range: 10*3/?L. The reference range was not used to interpret this result as normal/abnormal. GRAN MAT (NEUT) % (test code = 770-8) 68.6 % IMM GRAN % (test code = 0033247574) 0.70 % LYMPH % (test code = 736-9) 19.8 % MONO % (test code = 5905-5) 5.3 % EOS % (test code = 713-8) 5.1 % BASO % (test code = 706-2) 0.5 % GRAN MAT x10^3(ANC) (test code = 9503212540) 5.08 10*3/uL 1.88-7.09 IMM GRAN x10^3 (test code = 3679005527) 0.05 10*3/uL 0.00-0.06 LYMPH x10^3 (test code = 731-0) 1.47 10*3/uL 1.32-3.29 MONO x10^3 (test code = 742-7) 0.39 10*3/uL 0.33-0.92 EOS x10^3 (test code = 711-2) 0.38 10*3/uL 0.03-0.39 BASO x10^3 (test code = 704-7) 0.04 10*3/uL 0.01-0.07 Lab Interpretation (test code = 50236-3) Abnormal [facility] WITH [id number] 17:18:52* Test Item Value Reference Range Interpretation Comme nts WBC (test code = 6690-2) 7.41 See_Comment [Automated kWhOURSa [employer]Note] The system which generated this result transmitted reference range: 4.30 - 11.10 10*3/?L. The reference range was not used to interpret this result as normal/abnormal. RBC (test code = 789-8) 4.20 See_Comment [Automated kWhOURSa [employer]] The system which generated this result transmitted [...] g/dL 31.6-35.1 L RDW-SD (test code = 76329-2) 46.2 fL 39.0-49.9 RDW-CV (test code = 788-0) 17.9 % 12.0-15.5 H PLT (test code = 777-3) 304 See_Comment [Automated messa ge] The system which generated this result transmitted reference range: 166 - 358 10*3/?L. The reference range was not used to interpret this result as normal/abnormal. MPV (test code = 96089-8) 11.0 fL 9.5-12.9 NRBC/100 WBC (test code = 8936933783) 0.0 See_Comment [Automated me ssage] The system which generated this result transmitted reference range: 0.0 - 10.0 /100 WBCs. The reference range was not used to interpret this result as normal/abnormal. NRBC x10^3 (test code = 5521108394) See_Comment [Automated messa ge] The system which generated this result transmitted reference range: 10*3/?L. The reference range was not used to interpret this result as normal/abnormal. GRAN MAT (NEUT) % (test code = 770-8) 68.6 % IMM GRAN % (test code = 6877681583) 0.70 % LYMPH % (test code = 736-9) 19.8 % MONO % (test code = 5905-5) 5.3 % EOS % (test code = 713-8) 5.1 % BASO % (test code = 706-2) 0.5 % GRAN MAT x10^3(ANC) (test code = 6929772733) 5.08 10*3/uL 1.88-7.09 IMM GRAN x10^3 (test code = 1612337089) 0.05 10*3/uL 0.00-0.06 LYMPH x10^3 (test code = 731-0) 1.47 10*3/uL 1.32-3.29 MONO x10^3 (test code = 742-7) 0.39 10*3/uL 0.33-0.92 EOS x10^3 (test code = 711-2) 0.38 10*3/uL 0.03-0.39 BASO x10^3 (test code = 704-7) 0.04 10*3/uL 0.01-0.07 Lab Interpretation (test code = 08795-0) Abnormal [facility] WITH [id number] 17:18:52* Test Item Value Reference Range Interpretation [...] g/dL 31.6-35.1 L RDW-SD (test code = 88017-4) 46.2 fL 39.0-49.9 RDW-CV (test code = 788-0) 17.9 % 12.0-15.5 H PLT (test code = 777-3) 304 See_Comment [Automated messa ge] The system which generated this result transmitted reference range: 166 - 358 10*3/?L. The reference range was not used to interpret this result as normal/abnormal. MPV (test code = 64618-9) 11.0 fL 9.5-12.9 NRBC/100 WBC (test code = 1515479850) 0.0 See_Comment [Automated Bracketz ssage] The system which generated this result transmitted reference range: 0.0 - 10.0 /100 WBCs. The reference range was not used to interpret this result as normal/abnormal. NRBC x10^3 (test code = 1629600550) See_Comment [Automated messa ge] The system which generated this result transmitted reference range: 10*3/?L. The reference range was not used to interpret this result as normal/abnormal. GRAN MAT (NEUT) % (test code = 770-8) 68.6 % IMM GRAN % (test code = 0289744290) 0.70 % LYMPH % (test code = 736-9) 19.8 % MONO % (test code = 5905-5) 5.3 % EOS % (test code = 713-8) 5.1 % BASO % (test code = 706-2) 0.5 % GRAN MAT x10^3(ANC) (test code = 7195721308) 5.08 10*3/uL 1.88-7.09 IMM GRAN x10^3 (test code = 2496854958) 0.05 10*3/uL 0.00-0.06 LYMPH x10^3 (test code = 731-0) 1.47 10*3/uL 1.32-3.29 MONO x10^3 (test code = 742-7) 0.39 10*3/uL 0.33-0.92 EOS x10^3 (test code = 711-2) 0.38 10*3/uL 0.03-0.39 BASO x10^3 (test code = 704-7) 0.04 10*3/uL 0.01-0.07 Lab Interpretation (test code = 12833-4) Abnormal [facility] WITH [id number] 17:18:52* Test Item Value Reference Range Interpretation [...] g/dL 31.6-35.1 L RDW-SD (test code = 46856-3) 46.2 fL 39.0-49.9 RDW-CV (test code = 788-0) 17.9 % 12.0-15.5 H PLT (test code = 777-3) 304 See_Comment [Automated kWhOURSa ge] The system which generated this result transmitted reference range: 166 - 358 10*3/?L. The reference range was not used to interpret this result as normal/abnormal. MPV (test code = 88705-2) 11.0 fL 9.5-12.9 NRBC/100 WBC (test code = 5032651224) 0.0 See_Comment [Automated Bracketz ssage] The system which generated this result transmitted reference range: 0.0 - 10.0 /100 WBCs. The reference range was not used to interpret this result as normal/abnormal. NRBC x10^3 (test code = 3313784095) See_Comment [Automated kWhOURSa ge] The system which generated this result transmitted reference range: 10*3/?L. The reference range was not used to interpret this result as normal/abnormal. GRAN MAT (NEUT) % (test code = 770-8) 68.6 % IMM GRAN % (test code = 9903675140) 0.70 % LYMPH % (test code = 736-9) 19.8 % MONO % (test code = 5905-5) 5.3 % EOS % (test code = 713-8) 5.1 % BASO % (test code = 706-2) 0.5 % GRAN MAT x10^3(ANC) (test code = 3438371158) 5.08 10*3/uL 1.88-7.09 IMM GRAN x10^3 (test code = 8381537470) 0.05 10*3/uL 0.00-0.06 LYMPH x10^3 (test code = 731-0) 1.47 10*3/uL 1.32-3.29 MONO x10^3 (test code = 742-7) 0.39 10*3/uL 0.33-0.92 EOS x10^3 (test code = 711-2) 0.38 10*3/uL 0.03-0.39 BASO x10^3 (test code = 704-7) 0.04 10*3/uL 0.01-0.07 Lab Interpretation (test code = 84225-3) Abnormal [facility] WITH [id number] 17:18:52* Test Item Value Reference Range Interpretation [...] g/dL 31.6-35.1 L RDW-SD (test code = 94453-6) 46.2 fL 39.0-49.9 RDW-CV (test code = 788-0) 17.9 % 12.0-15.5 H PLT (test code = 777-3) 304 See_Comment [Automated messa ge] The system which generated this result transmitted reference range: 166 - 358 10*3/?L. The reference range was not used to interpret this result as normal/abnormal. MPV (test code = 71926-3) 11.0 fL 9.5-12.9 NRBC/100 WBC (test code = 2316431594) 0.0 See_Comment [Automated me ssage] The system which generated this result transmitted reference range: 0.0 - 10.0 /100 WBCs. The reference range was not used to interpret this result as normal/abnormal. NRBC x10^3 (test code = 7139998733) See_Comment [Automated messa ge] The system which generated this result transmitted reference range: 10*3/?L. The reference range was not used to interpret this result as normal/abnormal. GRAN MAT (NEUT) % (test code = 770-8) 68.6 % IMM GRAN % (test code = 6708079341) 0.70 % LYMPH % (test code = 736-9) 19.8 % MONO % (test code = 5905-5) 5.3 % EOS % (test code = 713-8) 5.1 % BASO % (test code = 706-2) 0.5 % GRAN MAT x10^3(ANC) (test code = 4478734999) 5.08 10*3/uL 1.88-7.09 IMM GRAN x10^3 (test code = 1014113307) 0.05 10*3/uL 0.00-0.06 LYMPH x10^3 (test code = 731-0) 1.47 10*3/uL 1.32-3.29 MONO x10^3 (test code = 742-7) 0.39 10*3/uL 0.33-0.92 EOS x10^3 (test code = 711-2) 0.38 10*3/uL 0.03-0.39 BASO x10^3 (test code = 704-7) 0.04 10*3/uL 0.01-0.07 Lab Interpretation (test code = 51437-0) Abnormal [facility] WITH [id number] 17:18:52* Test Item Value Reference Range Interpretation Comme nts WBC (test code = 6690-2) 7.41 See_Comment [Automated messa ge] The system which generated this result transmitted reference range: 4.30 - 11.10 10*3/?L. The reference range was not used to interpret this result as normal/abnormal. RBC (test code = 789-8) 4.20 See_Comment [Automated kWhOURSa ge] The system which generated this result [...] g/dL 31.6-35.1 L RDW-SD (test code = 26233-1) 46.2 fL 39.0-49.9 RDW-CV (test code = 788-0) 17.9 % 12.0-15.5 H PLT (test code = 777-3) 304 See_Comment [Automated kWhOURSa ge] The system which generated this result transmitted reference range: 166 - 358 10*3/?L. The reference range was not used to interpret this result as normal/abnormal. MPV (test code = 37532-2) 11.0 fL 9.5-12.9 NRBC/100 WBC (test code = 9295883841) 0.0 See_Comment [Automated Bracketz ssage] The system which generated this result transmitted reference range: 0.0 - 10.0 /100 WBCs. The reference range was not used to interpret this result as normal/abnormal. NRBC x10^3 (test code = 8116753978) See_Comment [Automated kWhOURSa ge] The system which generated this result transmitted reference range: 10*3/?L. The reference range was not used to interpret this result as normal/abnormal. GRAN MAT (NEUT) % (test code = 770-8) 68.6 % IMM GRAN % (test code = 6472499668) 0.70 % LYMPH % (test code = 736-9) 19.8 % MONO % (test code = 5905-5) 5.3 % EOS % (test code = 713-8) 5.1 % BASO % (test code = 706-2) 0.5 % GRAN MAT x10^3(ANC) (test code = 3466191557) 5.08 10*3/uL 1.88-7.09 IMM GRAN x10^3 (test code = 0162686344) 0.05 10*3/uL 0.00-0.06 LYMPH x10^3 (test code = 731-0) 1.47 10*3/uL 1.32-3.29 MONO x10^3 (test code = 742-7) 0.39 10*3/uL 0.33-0.92 EOS x10^3 (test code = 711-2) 0.38 10*3/uL 0.03-0.39 BASO x10^3 (test code = 704-7) 0.04 10*3/uL 0.01-0.07 Lab Interpretation (test code = 59023-6) Abnormal [facility] WITH [id number] 17:18:52* Test Item Value Reference Range Interpretation [...] g/dL 31.6-35.1 L RDW-SD (test code = 21184-2) 46.2 fL 39.0-49.9 RDW-CV (test code = 788-0) 17.9 % 12.0-15.5 H PLT (test code = 777-3) 304 See_Comment [Automated messa ge] The system which generated this result transmitted reference range: 166 - 358 10*3/?L. The reference range was not used to interpret this result as normal/abnormal. MPV (test code = 69394-2) 11.0 fL 9.5-12.9 NRBC/100 WBC (test code = 1364578537) 0.0 See_Comment [Automated Bracketz ssage] The system which generated this result transmitted reference range: 0.0 - 10.0 /100 WBCs. The reference range was not used to interpret this result as normal/abnormal. NRBC x10^3 (test code = 8820450521) See_Comment [Automated kWhOURSa ge] The system which generated this result transmitted reference range: 10*3/?L. The reference range was not used to interpret this result as normal/abnormal. GRAN MAT (NEUT) % (test code = 770-8) 68.6 % IMM GRAN % (test code = 2730018215) 0.70 % LYMPH % (test code = 736-9) 19.8 % MONO % (test code = 5905-5) 5.3 % EOS % (test code = 713-8) 5.1 % BASO % (test code = 706-2) 0.5 % GRAN MAT x10^3(ANC) (test code = 4432208269) 5.08 10*3/uL 1.88-7.09 IMM GRAN x10^3 (test code = 4774334814) 0.05 10*3/uL 0.00-0.06 LYMPH x10^3 (test code = 731-0) 1.47 10*3/uL 1.32-3.29 MONO x10^3 (test code = 742-7) 0.39 10*3/uL 0.33-0.92 EOS x10^3 (test code = 711-2) 0.38 10*3/uL 0.03-0.39 BASO x10^3 (test code = 704-7) 0.04 10*3/uL 0.01-0.07 Lab Interpretation (test code = 76773-1) Abnormal [facility] WITH [id number] 17:18:52* Test Item Value Reference Range Interpretation [...] g/dL 31.6-35.1 L RDW-SD (test code = 30684-8) 46.2 fL 39.0-49.9 RDW-CV (test code = 788-0) 17.9 % 12.0-15.5 H PLT (test code = 777-3) 304 See_Comment [Automated messa ge] The system which generated this result transmitted reference range: 166 - 358 10*3/?L. The reference range was not used to interpret this result as normal/abnormal. MPV (test code = 06413-2) 11.0 fL 9.5-12.9 NRBC/100 WBC (test code = 8000067713) 0.0 See_Comment [Automated Bracketz ssage] The system which generated this result transmitted reference range: 0.0 - 10.0 /100 WBCs. The reference range was not used to interpret this result as normal/abnormal. NRBC x10^3 (test code = 4693464095) See_Comment [Automated messa ge] The system which generated this result transmitted reference range: 10*3/?L. The reference range was not used to interpret this result as normal/abnormal. GRAN MAT (NEUT) % (test code = 770-8) 68.6 % IMM GRAN % (test code = 0185889670) 0.70 % LYMPH % (test code = 736-9) 19.8 % MONO % (test code = 5905-5) 5.3 % EOS % (test code = 713-8) 5.1 % BASO % (test code = 706-2) 0.5 % GRAN MAT x10^3(ANC) (test code = 5700282693) 5.08 10*3/uL 1.88-7.09 IMM GRAN x10^3 (test code = 7075042603) 0.05 10*3/uL 0.00-0.06 LYMPH x10^3 (test code = 731-0) 1.47 10*3/uL 1.32-3.29 MONO x10^3 (test code = 742-7) 0.39 10*3/uL 0.33-0.92 EOS x10^3 (test code = 711-2) 0.38 10*3/uL 0.03-0.39 BASO x10^3 (test code = 704-7) 0.04 10*3/uL 0.01-0.07 Lab Interpretation (test code = 06299-0) Abnormal [facility] WITH [id number] 17:18:52* Test Item Value Reference Range Interpretation Comme nts WBC (test code = 6690-2) 7.41 See_Comment [Automated kWhOURSa ge] The system which generated this result transmitted reference range: 4.30 - 11.10 10*3/?L. The reference range was not used to interpret this result as normal/abnormal. RBC (test code = 789-8) 4.20 See_Comment [Automated kWhOURSa ge] The system which generated this result [...] g/dL 31.6-35.1 L RDW-SD (test code = 71862-0) 46.2 fL 39.0-49.9 RDW-CV (test code = 788-0) 17.9 % 12.0-15.5 H PLT (test code = 777-3) 304 See_Comment [Automated messa ge] The system which generated this result transmitted reference range: 166 - 358 10*3/?L. The reference range was not used to interpret this result as normal/abnormal. MPV (test code = 31594-2) 11.0 fL 9.5-12.9 NRBC/100 WBC (test code = 0245803915) 0.0 See_Comment [Automated Bracketz ssage] The system which generated this result transmitted reference range: 0.0 - 10.0 /100 WBCs. The reference range was not used to interpret this result as normal/abnormal. NRBC x10^3 (test code = 0726672601) See_Comment [Automated messa ge] The system which generated this result transmitted reference range: 10*3/?L. The reference range was not used to interpret this result as normal/abnormal. GRAN MAT (NEUT) % (test code = 770-8) 68.6 % IMM GRAN % (test code = 3655576961) 0.70 % LYMPH % (test code = 736-9) 19.8 % MONO % (test code = 5905-5) 5.3 % EOS % (test code = 713-8) 5.1 % BASO % (test code = 706-2) 0.5 % GRAN MAT x10^3(ANC) (test code = 4079818597) 5.08 10*3/uL 1.88-7.09 IMM GRAN x10^3 (test code = 7706939631) 0.05 10*3/uL 0.00-0.06 LYMPH x10^3 (test code = 731-0) 1.47 10*3/uL 1.32-3.29 MONO x10^3 (test code = 742-7) 0.39 10*3/uL 0.33-0.92 EOS x10^3 (test code = 711-2) 0.38 10*3/uL 0.03-0.39 BASO x10^3 (test code = 704-7) 0.04 10*3/uL 0.01-0.07 Lab Interpretation (test code = 76969-9) Abnormal [facility] [id number] 16:24:00* Test Item Value Reference Range Interpretation Comme nts POCT PREG (test code = 1605) Negative On board controls acceptable with C Line (test code = 3574) Yes POCT PREG LOT # (test code = 3575) [id number] POCT PREG TEST DATE ( test code = 3576) 04-11-2024 Lab Interpretation (test cod e = 86251-9) Normal [facility] [id number] 16:24:00* Test Item Value Reference Range Interpretation Comme nts POCT PREG (test code = 1605) Negative On board controls acceptable with C Line (test code = 3574) Yes POCT PREG LOT # (test code = 3575) [id number] POCT PREG TEST DATE ( test code = 3576) 04-11-2024 Lab Interpretation (test cod e = 11903-2) Normal [facility] [id number] 16:24:00* Test Item Value Reference Range Interpretation Comme nts POCT PREG (test code = 1605) Negative On board controls acceptable with C Line (test code = 3574) Yes POCT PREG LOT # (test code = 3575) [id number] POCT PREG TEST DATE ( test code = 3576) 04-11-2024 Lab Interpretation (test cod e = 27449-7) Normal [facility] [id number] 16:24:00* Test Item Value Reference Range Interpretation Comme nts POCT PREG (test code = 1605) Negative On board controls acceptable with C Line (test code = 3574) Yes POCT PREG LOT # (test code = 3575) [id number] POCT PREG TEST DATE ( test code = 3576) 04-11-2024 Lab Interpretation (test cod e = 34597-9) [facility] [id number] 16:24:00* Test Item Value Reference Range Interpretation Comme nts POCT PREG (test code = 1605) Negative On board controls acceptable with C Line (test code = 3574) Yes POCT PREG LOT # (test code = 3575) [id number] POCT PREG TEST DATE ( test code = 3576) 04-11-2024 Lab Interpretation (test cod e = 73063-3) [facility] [id number] 16:24:00* Test Item Value Reference Range Interpretation Comme nts POCT PREG (test code = 1605) Negative On board controls acceptable with C Line (test code = 3574) Yes POCT PREG LOT # (test code = 3575) [id number] POCT PREG TEST DATE ( test code = 3576) 04-11-2024 Lab Interpretation (test cod e = 73943-5) [facility] [id number] 16:24:00* Test Item Value Reference Range Interpretation Comme nts POCT PREG (test code = 1605) Negative On board controls acceptable with C Line (test code = 3574) Yes POCT PREG LOT # (test code = 3575) [id number] POCT PREG TEST DATE ( test code = 3576) 04-11-2024 Lab Interpretation (test cod e = 92324-0) [facility] [id number] 16:24:00* Test Item Value Reference Range Interpretation Comme nts POCT PREG (test code = 1605) Negative On board controls acceptable with C Line (test code = 3574) Yes POCT PREG LOT # (test code = 3575) [id number] POCT PREG TEST DATE ( test code = 3576) 04-11-2024 Lab Interpretation (test cod e = 19934-2) [facility] [id number] 16:24:00* Test Item Value Reference Range Interpretation Comme nts POCT PREG (test code = 1605) Negative On board controls acceptable with C Line (test code = 3574) Yes POCT PREG LOT # (test code = 3575) [id number] POCT PREG TEST DATE ( test code = 3576) 04-11-2024 Lab Interpretation (test cod e = 42206-3) [facility] [id number] 16:24:00* Test Item Value Reference Range Interpretation Comme nts POCT PREG (test code = 1605) Negative On board controls acceptable with C Line (test code = 3574) Yes POCT PREG LOT # (test code = 3575) [id number] POCT PREG TEST DATE ( test code = 3576) 04-11-2024 Lab Interpretation (test cod e = 80853-5) [facility] [id number] 16:24:00* Test Item Value Reference Range Interpretation Comme nts POCT PREG (test code = 1605) Negative On board controls acceptable with C Line (test code = 3574) Yes POCT PREG LOT # (test code = 3575) 148507 POCT PREG TEST DATE ( test code = 3576) 04-11-2024 Lab Interpretation (test cod e = 12768-0) [facility] [id number] 16:24:00* Test Item Value Reference Range Interpretation Comme nts POCT PREG (test code = 1605) Negative On board controls acceptable with C Line (test code = 3574) Yes POCT PREG LOT # (test code = 3575) 327555 POCT PREG TEST DATE ( test code = 3576) 04-11-2024 Lab Interpretation (test cod e = 91062-6) [facility] [id number] 16:24:00* Test Item Value Reference Range Interpretation Comme nts POCT PREG (test code = 1605) Negative On board controls acceptable with C Line (test code = 3574) Yes POCT PREG LOT # (test code = 3575) [id number] POCT PREG TEST DATE ( test code = 3576) 04-11-2024 Lab Interpretation (test cod e = 61740-3) [facility] [id number] 16:24:00* Test Item Value Reference Range Interpretation Comme nts POCT PREG (test code = 1605) Negative On board controls acceptable with C Line (test code = 3574) Yes POCT PREG LOT # (test code = 3575) 473216 POCT PREG TEST DATE ( test code = 3576) 04-11-2024 Lab Interpretation (test cod e = 14068-8) [facility] [id number] 16:24:00* Test Item Value Reference Range Interpretation Comme nts POCT PREG (test code = 1605) Negative On board controls acceptable with C Line (test code = 3574) Yes POCT PREG LOT # (test code = 3575) [id number] POCT PREG TEST DATE ( test code = 3576) 04-11-2024 Lab Interpretation (test cod e = 87581-7) [facility] [id number] 16:24:00* Test Item Value Reference Range Interpretation Comme nts POCT PREG (test code = 1605) Negative On board controls acceptable with C Line (test code = 3574) Yes POCT PREG LOT # (test code = 3575) [id number] POCT PREG TEST DATE ( test code = 3576) 04-11-2024 Lab Interpretation (test cod e = 19968-9) [facility] [id number] 16:24:00* Test Item Value Reference Range Interpretation Comme nts POCT PREG (test code = 1605) Negative On board controls acceptable with C Line (test code = 3574) Yes POCT PREG LOT # (test code = 3575) 502185 POCT PREG TEST DATE ( test code = 3576) 04-11-2024 Lab Interpretation (test cod e = 83967-5) [facility] [id number] 16:24:00* Test Item Value Reference Range Interpretation Comme nts POCT PREG (test code = 1605) Negative On board controls acceptable with C Line (test code = 3574) Yes POCT PREG LOT # (test code = 3575) 299953 POCT PREG TEST DATE ( test code = 3576) 04-11-2024 Lab Interpretation (test cod e = 25507-1) [facility] ONLY CELIAC SCREEN [id number] 19:09:14 * Test Item Value Reference Range Interpretation Comme nts Tissue Transglutaminase (tTG) Ab, IgA Interpretation (test code = 13546-9) Negative Negative Deamidated Gliadin Peptide (DGP) Ab, IgA Interpretation (test code = 66508-4) Negative Negative Tissue Transglutaminase (tTG) Ab, IgA (test code = 2019576793) <=7.0 Deamidated Gliadin Peptide (DGP) Ab, IgA (test code = 5977743141) 0.4 U/mL <=7.0 ZAINAB (test code = ZAINAB) < 7 U/mL ? Negative7 - 10 U/mL ?Equivocal> 10 U/mL ?Positive In case of equivocal results, we recommend to retest the patient after 8 -12 weeks. Lab Interpretation (test code = 06867-7) Normal [facility] ONLY CELIAC SCREEN [id number] 19:09:14 * Test Item Value Reference Range Interpretation Comme nts Tissue Transglutaminase (tTG) Ab, IgA Interpretation (test code = 54906-4) Negative Negative Deamidated Gliadin Peptide (DGP) Ab, IgA Interpretation (test code = 51210-3) Negative Negative Tissue Transglutaminase (tTG) Ab, IgA (test code = 5871976065) <=7.0 Deamidated Gliadin Peptide (DGP) Ab, IgA (test code = 6223165650) 0.4 U/mL <=7.0 ZAINAB (test code = ZAINAB) < 7 U/mL ? Negative7 - 10 U/mL ?Equivocal> 10 U/mL ?Positive In case of equivocal results, we recommend to retest the patient after 8 -12 weeks. Lab Interpretation (test code = 18441-6) Normal [facility] ONLY CELIAC SCREEN [id number] 19:09:14 * Test Item Value Reference Range Interpretation Comme nts Tissue Transglutaminase (tTG) Ab, IgA Interpretation (test code = 12932-5) Negative Negative Deamidated Gliadin Peptide (DGP) Ab, IgA Interpretation (test code = 24355-9) Negative Negative Tissue Transglutaminase (tTG) Ab, IgA (test code = 7852675142) <=7.0 Deamidated Gliadin Peptide (DGP) Ab, IgA (test code = 9484347224) 0.4 U/mL <=7.0 ZAINAB (test code = ZAINAB) < 7 U/mL ? Negative7 - 10 U/mL ?Equivocal> 10 U/mL ?Positive In case of equivocal results, we recommend to retest the patient after 8 -12 weeks. Lab Interpretation (test code = 85047-1) Normal [facility] ONLY CELIAC SCREEN [id number] 19:09:14 * Test Item Value Reference Range Interpretation Comme nts Tissue Transglutaminase (tTG) Ab, IgA Interpretation (test code = 30493-7) Negative Negative Deamidated Gliadin Peptide (DGP) Ab, IgA Interpretation (test code = 61773-8) Negative Negative Tissue Transglutaminase (tTG) Ab, IgA (test code = 7189781397) <=7.0 Deamidated Gliadin Peptide (DGP) Ab, IgA (test code = 5585749155) 0.4 U/mL <=7.0 ZAINAB (test code = ZAINAB) < 7 U/mL ? Negative7 - 10 U/mL ?Equivocal> 10 U/mL ?Positive In case of equivocal results, we recommend to retest the patient after 8 -12 weeks. Lab Interpretation (test code = 69491-9) Normal [facility] ONLY CELIAC SCREEN [id number] 19:09:14 * Test Item Value Reference Range Interpretation Comme nts Tissue Transglutaminase (tTG) Ab, IgA Interpretation (test code = 10459-7) Negative Negative Deamidated Gliadin Peptide (DGP) Ab, IgA Interpretation (test code = 80415-9) Negative Negative Tissue Transglutaminase (tTG) Ab, IgA (test code = 4650824408) <=7.0 Deamidated Gliadin Peptide (DGP) Ab, IgA (test code = 2777142713) 0.4 U/mL <=7.0 ZAINAB (test code = ZAINAB) < 7 U/mL ? Negative7 - 10 U/mL ?Equivocal> 10 U/mL ?Positive In case of equivocal results, we recommend to retest the patient after 8 -12 weeks. Lab Interpretation (test code = 91306-8) Normal [facility] ONLY CELIAC SCREEN [id number] 19:09:14 * Test Item Value Reference Range Interpretation Comme nts Tissue Transglutaminase (tTG) Ab, IgA Interpretation (test code = 60889-1) Negative Negative Deamidated Gliadin Peptide (DGP) Ab, IgA Interpretation (test code = 63957-2) Negative Negative Tissue Transglutaminase (tTG) Ab, IgA (test code = 5800316827) <=7.0 Deamidated Gliadin Peptide (DGP) Ab, IgA (test code = 2138369733) 0.4 U/mL <=7.0 ZAINAB (test code = ZAINAB) < 7 U/mL ? Negative7 - 10 U/mL ?Equivocal> 10 U/mL ?Positive In case of equivocal results, we recommend to retest the patient after 8 -12 weeks. Lab Interpretation (test code = 74179-0) Normal [facility] ONLY CELIAC SCREEN [id number] 19:09:14 * Test Item Value Reference Range Interpretation Comme nts Tissue Transglutaminase (tTG) Ab, IgA Interpretation (test code = 98455-9) Negative Negative Deamidated Gliadin Peptide (DGP) Ab, IgA Interpretation (test code = 39066-2) Negative Negative Tissue Transglutaminase (tTG) Ab, IgA (test code = 7641488875) <=7.0 Deamidated Gliadin Peptide (DGP) Ab, IgA (test code = 4388886052) 0.4 U/mL <=7.0 ZAINAB (test code = ZAINAB) < 7 U/mL ? Negative7 - 10 U/mL ?Equivocal> 10 U/mL ?Positive In case of equivocal results, we recommend to retest the patient after 8 -12 weeks. Lab Interpretation (test code = 35857-5) Normal [facility] ONLY CELIAC SCREEN [id number] 19:09:14 * Test Item Value Reference Range Interpretation Comme nts Tissue Transglutaminase (tTG) Ab, IgA Interpretation (test code = 34355-2) Negative Negative Deamidated Gliadin Peptide (DGP) Ab, IgA Interpretation (test code = 78113-9) Negative Negative Tissue Transglutaminase (tTG) Ab, IgA (test code = 0434710367) <=7.0 Deamidated Gliadin Peptide (DGP) Ab, IgA (test code = 9114097862) 0.4 U/mL <=7.0 ZAINAB (test code = ZAINAB) < 7 U/mL ? Negative7 - 10 U/mL ?Equivocal> 10 U/mL ?Positive In case of equivocal results, we recommend to retest the patient after 8 -12 weeks. Lab Interpretation (test code = 73360-7) Normal [facility] ONLY CELIAC SCREEN [id number] 19:09:14 * Test Item Value Reference Range Interpretation Comme nts Tissue Transglutaminase (tTG) Ab, IgA Interpretation (test code = 61245-6) Negative Negative Deamidated Gliadin Peptide (DGP) Ab, IgA Interpretation (test code = 55827-2) Negative Negative Tissue Transglutaminase (tTG) Ab, IgA (test code = 3312251672) <=7.0 Deamidated Gliadin Peptide (DGP) Ab, IgA (test code = 9574635112) 0.4 U/mL <=7.0 ZAINAB (test code = ZAINAB) < 7 U/mL ? Negative7 - 10 U/mL ?Equivocal> 10 U/mL ?Positive In case of equivocal results, we recommend to retest the patient after 8 -12 weeks. Lab Interpretation (test code = 44776-4) Normal [facility] ONLY CELIAC SCREEN [id number] 19:09:14 * Test Item Value Reference Range Interpretation Comme nts Tissue Transglutaminase (tTG) Ab, IgA Interpretation (test code = 84325-4) Negative Negative Deamidated Gliadin Peptide (DGP) Ab, IgA Interpretation (test code = 78989-6) Negative Negative Tissue Transglutaminase (tTG) Ab, IgA (test code = 6101967399) <=7.0 Deamidated Gliadin Peptide (DGP) Ab, IgA (test code = 3209009747) 0.4 U/mL <=7.0 ZAINAB (test code = ZAINAB) < 7 U/mL ? Negative7 - 10 U/mL ?Equivocal> 10 U/mL ?Positive In case of equivocal results, we recommend to retest the patient after 8 -12 weeks. Lab Interpretation (test code = 17821-4) Normal [facility] ONLY CELIAC SCREEN [id number] 19:09:14 * Test Item Value Reference Range Interpretation Comme nts Tissue Transglutaminase (tTG) Ab, IgA Interpretation (test code = 62570-5) Negative Negative Deamidated Gliadin Peptide (DGP) Ab, IgA Interpretation (test code = 28913-1) Negative Negative Tissue Transglutaminase (tTG) Ab, IgA (test code = 1656857574) <=7.0 Deamidated Gliadin Peptide (DGP) Ab, IgA (test code = 1899318179) 0.4 U/mL <=7.0 ZAINAB (test code = ZAINAB) < 7 U/mL ? Negative7 - 10 U/mL ?Equivocal> 10 U/mL ?Positive In case of equivocal results, we recommend to retest the patient after 8 -12 weeks. Lab Interpretation (test code = 93232-5) Normal [facility] ONLY CELIAC SCREEN [id number] 19:09:14 * Test Item Value Reference Range Interpretation Comme nts Tissue Transglutaminase (tTG) Ab, IgA Interpretation (test code = 72698-5) Negative Negative Deamidated Gliadin Peptide (DGP) Ab, IgA Interpretation (test code = 08756-7) Negative Negative Tissue Transglutaminase (tTG) Ab, IgA (test code = 3595830442) <=7.0 Deamidated Gliadin Peptide (DGP) Ab, IgA (test code = 3459485734) 0.4 U/mL <=7.0 ZAINAB (test code = ZAINAB) < 7 U/mL ? Negative7 - 10 U/mL ?Equivocal> 10 U/mL ?Positive In case of equivocal results, we recommend to retest the patient after 8 -12 weeks. Lab Interpretation (test code = 49916-7) Normal [facility]2023-09-07 20:24:44* Test Item Value Reference Range Interpretation Comme nts Total IgA (test code = 7055609086) 78.3 U/mL 70-312 Lab Interpretation (test cod e = 94764-1) Normal [facility]2023-09-07 20:24:44* Test Item Value Reference Range Interpretation Comme nts Total IgA (test code = 8680440844) 78.3 U/mL 70-312 Lab Interpretation (test cod e = 59750-4) Normal [facility] [id number] 20:24:44* Test Item Value Reference Range Interpretation Comme nts Total IgA (test code = 1753320447) 78.3 U/mL 70-312 Lab Interpretation (test cod e = 72229-6) Normal [facility]2023-09-07 20:24:44* Test Item Value Reference Range Interpretation Comme nts Total IgA (test code = 9724594921) 78.3 U/mL 70-312 Lab Interpretation (test cod e = 41755-9) Normal [facility]2023-09-07 20:24:44* Test Item Value Reference Range Interpretation Comme nts Total IgA (test code = 9976254883) 78.3 U/mL 70-312 Lab Interpretation (test cod e = 53936-0) Normal [facility] [id number] 20:24:44* Test Item Value Reference Range Interpretation Comme nts Total IgA (test code = 8542433624) 78.3 U/mL 70-312 Lab Interpretation (test cod e = 49896-1) Normal [facility] [id number] 20:24:44* Test Item Value Reference Range Interpretation Comme nts Total IgA (test code = 5774574014) 78.3 U/mL 70-312 Lab Interpretation (test cod e = 65388-9) Normal [facility] [id number] 20:24:44* Test Item Value Reference Range Interpretation Comme nts Total IgA (test code = 3377015091) 78.3 U/mL 70-312 Lab Interpretation (test cod e = 19661-7) Normal [facility] [id number] 20:24:44* Test Item Value Reference Range Interpretation Comme nts Total IgA (test code = 9271640090) 78.3 U/mL 70-312 Lab Interpretation (test cod e = 17474-6) Normal [facility] [id number] 20:24:44* Test Item Value Reference Range Interpretation Comme nts Total IgA (test code = 5305031932) 78.3 U/mL 70-312 Lab Interpretation (test cod e = 68913-9) Normal [facility] [id number] 20:24:44* Test Item Value Reference Range Interpretation Comme nts Total IgA (test code = 6870990380) 78.3 U/mL 70-312 Lab Interpretation (test cod e = 43416-8) Normal [facility] [id number] 20:24:44* Test Item Value Reference Range Interpretation Comme nts Total IgA (test code = 4004564753) 78.3 U/mL 70-312 Lab Interpretation (test cod e = 49387-2) Normal [facility] [id number] 17:30:19* Test Item Value Reference Range Interpretation Comme nts FERRITIN (test code = 7466493005) 4.8 ng/mL 6.0-137.0 L ZAINAB (test code = ZAINAB) Biotin has been reported to cause a negative bias, interpret results relative to patient's use of biotin. Lab Interpretation (test code = 11565-2) Abnormal [facility] [id number] 17:30:19* Test Item Value Reference Range Interpretation Comme nts FERRITIN (test code = 1679439909) 4.8 ng/mL 6.0-137.0 L ZAINAB (test code = ZAINAB) Biotin has been reported to cause a negative bias, interpret results relative to patient's use of biotin. Lab Interpretation (test code = 77428-9) Abnormal [facility] [id number] 17:30:19* Test Item Value Reference Range Interpretation Comme nts FERRITIN (test code = 5458819616) 4.8 ng/mL 6.0-137.0 L ZAINAB (test code = ZAINAB) Biotin has been reported to cause a negative bias, interpret results relative to patient's use of biotin. Lab Interpretation (test code = 36158-7) Abnormal [facility] [id number] 17:30:19* Test Item Value Reference Range Interpretation Comme nts FERRITIN (test code = 7189501738) 4.8 ng/mL 6.0-137.0 L ZAINAB (test code = ZAINAB) Biotin has been reported to cause a negative bias, interpret results relative to patient's use of biotin. Lab Interpretation (test code = 68379-6) Abnormal [facility] [id number] 17:30:19* Test Item Value Reference Range Interpretation Comme nts FERRITIN (test code = 8147239375) 4.8 ng/mL 6.0-137.0 L ZAINAB (test code = ZAINAB) Biotin has been reported to cause a negative bias, interpret results relative to patient's use of biotin. Lab Interpretation (test code = 48915-3) Abnormal [facility] [id number] 17:30:19* Test Item Value Reference Range Interpretation Comme nts FERRITIN (test code = 1316624892) 4.8 ng/mL 6.0-137.0 L ZAINAB (test code = ZAINAB) Biotin has been reported to cause a negative bias, interpret results relative to patient's use of biotin. Lab Interpretation (test code = 57156-2) Abnormal [facility] [id number] 17:30:19* Test Item Value Reference Range Interpretation Comme nts FERRITIN (test code = 7547380822) 4.8 ng/mL 6.0-137.0 L ZAINAB (test code = ZAINAB) Biotin has been reported to cause a negative bias, interpret results relative to patient's use of biotin. Lab Interpretation (test code = 15572-7) Abnormal [facility] [id number] 17:30:19* Test Item Value Reference Range Interpretation Comme nts FERRITIN (test code = 5254215373) 4.8 ng/mL 6.0-137.0 L ZAINAB (test code = ZAINAB) Biotin has been reported to cause a negative bias, interpret results relative to patient's use of biotin. Lab Interpretation (test code = 59829-3) [facility] [id number] 17:30:19* Test Item Value Reference Range Interpretation Comme nts FERRITIN (test code = 7849097460) 4.8 ng/mL 6.0-137.0 L ZAINAB (test code = ZAINAB) Biotin has been reported to cause a negative bias, interpret results relative to patient's use of biotin. Lab Interpretation (test code = 28898-3) [facility] [id number] 17:30:19* Test Item Value Reference Range Interpretation Comme nts FERRITIN (test code = 4023403124) 4.8 ng/mL 6.0-137.0 L ZAINAB (test code = ZAINAB) Biotin has been reported to cause a negative bias, interpret results relative to patient's use of biotin. Lab Interpretation (test code = 37481-8) Abnormal [facility] [id number] 17:30:19* Test Item Value Reference Range Interpretation Comme nts FERRITIN (test code = 1122079580) 4.8 ng/mL 6.0-137.0 L ZAINAB (test code = ZAINAB) Biotin has been reported to cause a negative bias, interpret results relative to patient's use of biotin. Lab Interpretation (test code = 57441-9) Abnormal [facility] [id number] 17:30:19* Test Item Value Reference Range Interpretation Comme nts FERRITIN (test code = 8226830637) 4.8 ng/mL 6.0-137.0 L ZAINAB (test code = ZAINAB) Biotin has been reported to cause a negative bias, interpret results relative to patient's use of biotin. Lab Interpretation (test code = 50363-8) Abnormal [facility] [id number] 17:03:34* Test Item Value Reference Range Interpretation Comme nts IRON (test code = 0680699309) 34 ug/dL 50-160 L TIBC (test code = 6704812295) 515 ug/dL 250-410 H % FE SAT (test code = 0686281678) 7 % 20-50 L Lab Interpretation (test cod e = 21374-6) Abnormal [facility] [id number] 17:03:34* Test Item Value Reference Range Interpretation Comme nts IRON (test code = 4340946963) 34 ug/dL 50-160 L TIBC (test code = 8150610741) 515 ug/dL 250-410 H % FE SAT (test code = 4974912274) 7 % 20-50 L Lab Interpretation (test cod e = 78437-9) Abnormal [facility] [id number] 17:03:34* Test Item Value Reference Range Interpretation Comme nts IRON (test code = 3260585500) 34 ug/dL 50-160 L TIBC (test code = 7276293261) 515 ug/dL 250-410 H % FE SAT (test code = 6466428768) 7 % 20-50 L Lab Interpretation (test cod e = 97451-5) Abnormal [facility]2023-09-07 17:03:34* Test Item Value Reference Range Interpretation Comme nts IRON (test code = 8840386423) 34 ug/dL 50-160 L TIBC (test code = 0047878051) 515 ug/dL 250-410 H % FE SAT (test code = 5340401908) 7 % 20-50 L Lab Interpretation (test cod e = 64944-1) Abnormal [facility]2023-09-07 17:03:34* Test Item Value Reference Range Interpretation Comme nts IRON (test code = 2987280420) 34 ug/dL 50-160 L TIBC (test code = 6699370593) 515 ug/dL 250-410 H % FE SAT (test code = 4102360281) 7 % 20-50 L Lab Interpretation (test cod e = 05084-5) Abnormal [facility] [id number] 17:03:34* Test Item Value Reference Range Interpretation Comme nts IRON (test code = 0766853473) 34 ug/dL 50-160 L TIBC (test code = 0500397302) 515 ug/dL 250-410 H % FE SAT (test code = 9758375969) 7 % 20-50 L Lab Interpretation (test cod e = 62111-4) Abnormal [facility]2023-09-07 17:03:34* Test Item Value Reference Range Interpretation Comme nts IRON (test code = 3959102548) 34 ug/dL 50-160 L TIBC (test code = 3980342969) 515 ug/dL 250-410 H % FE SAT (test code = 4293886461) 7 % 20-50 L Lab Interpretation (test cod e = 06726-4) Abnormal [facility] [id number] 17:03:34* Test Item Value Reference Range Interpretation Comme nts IRON (test code = 7409463226) 34 ug/dL 50-160 L TIBC (test code = 5616917582) 515 ug/dL 250-410 H % FE SAT (test code = 7470328003) 7 % 20-50 L Lab Interpretation (test cod e = 35011-5) Abnormal [facility] [id number] 17:03:34* Test Item Value Reference Range Interpretation Comme nts IRON (test code = 6470777510) 34 ug/dL 50-160 L TIBC (test code = 7178655911) 515 ug/dL 250-410 H % FE SAT (test code = 4828818566) 7 % 20-50 L Lab Interpretation (test cod e = 22304-1) Abnormal [facility] [id number] 17:03:34* Test Item Value Reference Range Interpretation Comme nts IRON (test code = 3735512781) 34 ug/dL 50-160 L TIBC (test code = 9284084884) 515 ug/dL 250-410 H % FE SAT (test code = 8516678310) 7 % 20-50 L Lab Interpretation (test cod e = 15112-1) Abnormal [facility] [id number] 17:03:34* Test Item Value Reference Range Interpretation Comme nts IRON (test code = 5643127335) 34 ug/dL 50-160 L TIBC (test code = 2410180873) 515 ug/dL 250-410 H % FE SAT (test code = 3726578403) 7 % 20-50 L Lab Interpretation (test cod e = 23607-4) Abnormal [facility] [id number] 17:03:34* Test Item Value Reference Range Interpretation Comme nts IRON (test code = 3977140571) 34 ug/dL 50-160 L TIBC (test code = 7228296774) 515 ug/dL 250-410 H % FE SAT (test code = 8205185001) 7 % 20-50 L Lab Interpretation (test cod e = 24554-5) Abnormal [facility]2023-08-24 19:48:06* Test Item Value Reference Range Interpretation Comme nts Emison (test code = 6878287609) 0.5 mmol/L 0.6-1.2 L ZAINAB (test code = ZAINAB) Toxic Range: ? Greater than 1.2 mmol/L Lab Interpretation (test code = 83684-2) Abnormal [facility]2023-08-24 19:48:06* Test Item Value Reference Range Interpretation Comme nts Emison (test code = 8813715550) 0.5 mmol/L 0.6-1.2 L ZAINAB (test code = ZAINAB) Toxic Range: ? Greater than 1.2 mmol/L Lab Interpretation (test code = 87524-6) Abnormal [facility]2023-08-24 19:48:06* Test Item Value Reference Range Interpretation Comme nts Emison (test code = 7648501808) 0.5 mmol/L 0.6-1.2 L ZAINAB (test code = ZAINAB) Toxic Range: ? Greater than 1.2 mmol/L Lab Interpretation (test code = 06139-0) Abnormal [facility]2023-08-24 19:48:06* Test Item Value Reference Range Interpretation Comme nts Emison (test code = 9695736210) 0.5 mmol/L 0.6-1.2 L ZAINAB (test code = ZAINAB) Toxic Range: ? Greater than 1.2 mmol/L Lab Interpretation (test code = 73922-4) Abnormal [facility]2023-08-24 19:48:06* Test Item Value Reference Range Interpretation Comme nts Emison (test code = 6100573725) 0.5 mmol/L 0.6-1.2 L ZAINAB (test code = ZAINAB) Toxic Range: ? Greater than 1.2 mmol/L Lab Interpretation (test code = 09645-6) Abnormal [facility]2023-08-24 19:48:06* Test Item Value Reference Range Interpretation Comme nts Emison (test code = 9600455982) 0.5 mmol/L 0.6-1.2 L ZAINAB (test code = ZAINAB) Toxic Range: ? Greater than 1.2 mmol/L Lab Interpretation (test code = 80602-5) Abnormal [facility]2023-08-24 19:48:06* Test Item Value Reference Range Interpretation Comme nts Emison (test code = 1151853643) 0.5 mmol/L 0.6-1.2 L ZAINAB (test code = ZAINAB) Toxic Range: ? Greater than 1.2 mmol/L Lab Interpretation (test code = 87640-7) Abnormal [facility]2023-08-24 19:48:06* Test Item Value Reference Range Interpretation Comme nts Emison (test code = 0400565512) 0.5 mmol/L 0.6-1.2 L ZAINAB (test code = ZAINAB) Toxic Range: ? Greater than 1.2 mmol/L Lab Interpretation (test code = 49215-9) Abnormal [facility]2023-08-24 19:48:06* Test Item Value Reference Range Interpretation Comme nts Emison (test code = 4436279334) 0.5 mmol/L 0.6-1.2 L ZAINAB (test code = ZAINAB) Toxic Range: ? Greater than 1.2 mmol/L Lab Interpretation (test code = 97413-8) Abnormal [facility]2023-08-24 19:48:06* Test Item Value Reference Range Interpretation Comme nts Emison (test code = 4607956002) 0.5 mmol/L 0.6-1.2 L ZAINAB (test code = ZAINAB) Toxic Range: ? Greater than 1.2 mmol/L Lab Interpretation (test code = 85008-1) Abnormal [facility]2023-08-24 19:48:06* Test Item Value Reference Range Interpretation Comme nts Emison (test code = 9607801472) 0.5 mmol/L 0.6-1.2 L ZAINAB (test code = ZAINAB) Toxic Range: ? Greater than 1.2 mmol/L Lab Interpretation (test code = 32942-3) Abnormal [facility]2023-08-24 19:48:06* Test Item Value Reference Range Interpretation Comme nts Emison (test code = 6173441237) 0.5 mmol/L 0.6-1.2 L ZAINAB (test code = ZAINAB) Toxic Range: ? Greater than 1.2 mmol/L Lab Interpretation (test code = 53016-7) Abnormal [facility]2023-08-24 19:48:06* Test Item Value Reference Range Interpretation Comme nts Emison (test code = 2766578107) 0.5 mmol/L 0.6-1.2 L ZAINAB (test code = ZAINAB) Toxic Range: ? Greater than 1.2 mmol/L Lab Interpretation (test code = 15694-6) Abnormal [facility]2023-08-24 19:48:06* Test Item Value Reference Range Interpretation Comme nts Emison (test code = 9807641092) 0.5 mmol/L 0.6-1.2 L ZAINAB (test code = ZAINAB) Toxic Range: ? Greater than 1.2 mmol/L Lab Interpretation (test code = 10386-0) [facility] [id number] 17:24:34 * Test Item Value Reference Range Interpretation Comme nts TSH (test code = 4467113066) 1.07 See_Comment [Automated kWhOURSa ge] The system which generated this result transmitted reference range: 0.45 - 4.70 mIU/L. The reference range was not used to interpret this result as normal/abnormal. Lab Interpretation (test code = 11675-8) [facility] [id number] 17:24:34 * Test Item Value Reference Range Interpretation Comme nts TSH (test code = 6761564422) 1.07 See_Comment [Automated kWhOURSa InvestingNote] The system which generated this result transmitted reference range: 0.45 - 4.70 mIU/L. The reference range was not used to interpret this result as normal/abnormal. Lab Interpretation (test code = 15974-5) [facility] [id number] 17:24:34 * Test Item Value Reference Range Interpretation Comme nts TSH (test code = 8804810633) 1.07 See_Comment [Automated messa ge] The system which generated this result transmitted reference range: 0.45 - 4.70 mIU/L. The reference range was not used to interpret this result as normal/abnormal. Lab Interpretation (test code = 40969-1) [facility] [id number] 17:24:34 * Test Item Value Reference Range Interpretation Comme nts TSH (test code = 7066218960) 1.07 See_Comment [Automated messa ge] The system which generated this result transmitted reference range: 0.45 - 4.70 mIU/L. The reference range was not used to interpret this result as normal/abnormal. Lab Interpretation (test code = 82789-4) [facility] [id number] 17:24:34 * Test Item Value Reference Range Interpretation Comme nts TSH (test code = 8041349267) 1.07 See_Comment [Automated messa ge] The system which generated this result transmitted reference range: 0.45 - 4.70 mIU/L. The reference range was not used to interpret this result as normal/abnormal. Lab Interpretation (test code = 00083-1) [facility] [id number] 17:24:34 * Test Item Value Reference Range Interpretation Comme nts TSH (test code = 0537396048) 1.07 See_Comment [Automated messa ge] The system which generated this result transmitted reference range: 0.45 - 4.70 mIU/L. The reference range was not used to interpret this result as normal/abnormal. Lab Interpretation (test code = 17794-6) [facility] [id number] 17:24:34 * Test Item Value Reference Range Interpretation Comme nts TSH (test code = 6863360710) 1.07 See_Comment [Automated messa ge] The system which generated this result transmitted reference range: 0.45 - 4.70 mIU/L. The reference range was not used to interpret this result as normal/abnormal. Lab Interpretation (test code = 05199-9) [facility] [id number] 17:24:34 * Test Item Value Reference Range Interpretation Comme nts TSH (test code = 2030748820) 1.07 See_Comment [Automated messa ge] The system which generated this result transmitted reference range: 0.45 - 4.70 mIU/L. The reference range was not used to interpret this result as normal/abnormal. Lab Interpretation (test code = 08285-7) [facility] [id number] 17:24:34 * Test Item Value Reference Range Interpretation Comme nts TSH (test code = 8109824357) 1.07 See_Comment [Automated messa ge] The system which generated this result transmitted reference range: 0.45 - 4.70 mIU/L. The reference range was not used to interpret this result as normal/abnormal. Lab Interpretation (test code = 05552-0) [facility] [id number] 17:24:34 * Test Item Value Reference Range Interpretation Comme nts TSH (test code = 7182326204) 1.07 See_Comment [Automated messa ge] The system which generated this result transmitted reference range: 0.45 - 4.70 mIU/L. The reference range was not used to interpret this result as normal/abnormal. Lab Interpretation (test code = 90852-6) [facility] [id number] 17:24:34 * Test Item Value Reference Range Interpretation Comme nts TSH (test code = 8793886642) 1.07 See_Comment [Automated messa ge] The system which generated this result transmitted reference range: 0.45 - 4.70 mIU/L. The reference range was not used to interpret this result as normal/abnormal. Lab Interpretation (test code = 86011-7) [facility] [id number] 17:24:34 * Test Item Value Reference Range Interpretation Comme nts TSH (test code = 4166780434) 1.07 See_Comment [Automated messa ge] The system which generated this result transmitted reference range: 0.45 - 4.70 mIU/L. The reference range was not used to interpret this result as normal/abnormal. Lab Interpretation (test code = 71406-2) [facility] [id number] 17:24:34 * Test Item Value Reference Range Interpretation Comme nts TSH (test code = 5157875457) 1.07 See_Comment [Automated kWhOURSa InvestingNote] The system which generated this result transmitted reference range: 0.45 - 4.70 mIU/L. The reference range was not used to interpret this result as normal/abnormal. Lab Interpretation (test code = 36700-6) [facility] [id number] 17:24:34 * Test Item Value Reference Range Interpretation Comme nts TSH (test code = 8771183829) 1.07 See_Comment [Automated kWhOURSa InvestingNote] The system which generated this result transmitted reference range: 0.45 - 4.70 mIU/L. The reference range was not used to interpret this result as normal/abnormal. Lab Interpretation (test code = 83576-0) Normal [facility]. METABOLIC PANEL ([id number])2022-10-05 16:54:48* Test Item Value Reference Range Interpretation Comme nts NA (test code = 0948351406) 140 mmol/L 135-145 K (test code = 1969072741) 4.6 mmol/L 3.5-5.0 CL (test code = 9163768418) 106 mmol/L 98-108 CO2 TOTAL (test code = 9975466930) 28 mmol/L 23-31 AGAP (test code = 5461810725) 6 2-16 BUN (test code = 4053571891) 5 mg/dL 7-23 L GLUCOSE (test code = 7580111071) 90 mg/dL 70-110 CREATININE (test code = 6553370179) 0.54 mg/dL 0.50-1.04 TOTAL BILI (test code = 0654153186) 0.1 mg/dL 0.1-1.1 CALCIUM (test code = 5977235346) 9.6 mg/dL 8.6-10.6 T PROTEIN (test code = 3826684770) 6.2 g/dL 6.3-8.2 L ALBUMIN (test code = 9870291703) 4.0 g/dL 3.5-5.0 ALK PHOS (test code = 3236772386) 125 U/L 34-122 H ALTv (test code = 1742-6) 29 U/L 5-35 AST(SGOT) (test code = 7119355939) 24 U/L 13-40 eGFR (test code = 1893852003) 122.1 mL/min/1.73m2 ZAINAB (test code = ZAINAB) [...] imaging tests). Lab Interpretation (test code = 81169-1) [facility]TOTAL CHOLESTEROL, TRIGLYCERIDES, HDL)2022-10-05 16:54:48* Test Item Value Reference Range Interpretation Comme nts CHOL (test code = 6723718662) 183 mg/dL 120-200 HDL (test code = 2078929900) 40 mg/dL >=50 L HDLC RATIO (test code = 2433067559) 4.6 <=4.5 H TRIG (test code = 0860831731) 128 mg/dL 30-170 LDL CHOL (test code = 26099-0) 117 mg/dL <=160 VLDL (test code = 8942305163) 26 mg/dL 5-60 Lab Interpretation (test cod e = 79134-1) [facility] ([id number])2022-10-05 16:54:48* Test Item Value Reference Range Interpretation Comme nts NA (test code = 2573649318) 140 mmol/L 135-145 K (test code = 2914268816) 4.6 mmol/L 3.5-5.0 CL (test code = 2325688196) 106 mmol/L 98-108 CO2 TOTAL (test code = 4218755262) 28 mmol/L 23-31 AGAP (test code = 5692443645) 6 2-16 BUN (test code = 8104289496) 5 mg/dL 7-23 L GLUCOSE (test code = 0489814688) 90 mg/dL 70-110 CREATININE (test code = 9337437014) 0.54 mg/dL 0.50-1.04 TOTAL BILI (test code = 0593047049) 0.1 mg/dL 0.1-1.1 CALCIUM (test code = 0798478041) 9.6 mg/dL 8.6-10.6 T PROTEIN (test code = 9434573364) 6.2 g/dL 6.3-8.2 L ALBUMIN (test code = 7016029861) 4.0 g/dL 3.5-5.0 ALK PHOS (test code = 9537610814) 125 U/L 34-122 H ALTv (test code = 1742-6) 29 U/L 5-35 AST(SGOT) (test code = 9800310802) 24 U/L 13-40 eGFR (test code = 2082168329) 122.1 mL/min/1.73m2 ZAINAB (test code = ZAINAB) [...] imaging tests). Lab Interpretation (test code = 89577-2) [facility] (54801)(TOTAL CHOLESTEROL, TRIGLYCERIDES, HDL)2022-10-05 16:54:48* Test Item Value Reference Range Interpretation Comme nts CHOL (test code = 8440388197) 183 mg/dL 120-200 HDL (test code = 7885667318) 40 mg/dL >=50 L HDLC RATIO (test code = 4438002555) 4.6 <=4.5 H TRIG (test code = 7307084980) 128 mg/dL 30-170 LDL CHOL (test code = 56225-8) 117 mg/dL <=160 VLDL (test code = 2058769810) 26 mg/dL 5-60 Lab Interpretation (test cod e = 78022-8) [facility] (91846)2022-10-05 16:54:48* Test Item Value Reference Range Interpretation Comme nts NA (test code = 6236112627) 140 mmol/L 135-145 K (test code = 1375004793) 4.6 mmol/L 3.5-5.0 CL (test code = 6439616382) 106 mmol/L 98-108 CO2 TOTAL (test code = 7760294281) 28 mmol/L 23-31 AGAP (test code = 6965706612) 6 2-16 BUN (test code = 2795413304) 5 mg/dL 7-23 L GLUCOSE (test code = 3222212677) 90 mg/dL 70-110 CREATININE (test code = 1710179877) 0.54 mg/dL 0.50-1.04 TOTAL BILI (test code = 4203192830) 0.1 mg/dL 0.1-1.1 CALCIUM (test code = 4337562052) 9.6 mg/dL 8.6-10.6 T PROTEIN (test code = 0937989564) 6.2 g/dL 6.3-8.2 L ALBUMIN (test code = 2039729637) 4.0 g/dL 3.5-5.0 ALK PHOS (test code = 4226633840) 125 U/L 34-122 H ALTv (test code = 1742-6) 29 U/L 5-35 AST(SGOT) (test code = 9992043537) 24 U/L 13-40 eGFR (test code = 4623789528) 122.1 mL/min/1.73m2 ZAINAB (test code = ZAINAB) [...] imaging tests). Lab Interpretation (test code = 48556-5) [facility] (57889)(TOTAL CHOLESTEROL, TRIGLYCERIDES, HDL)2022-10-05 16:54:48* Test Item Value Reference Range Interpretation Comme nts CHOL (test code = 1245555656) 183 mg/dL 120-200 HDL (test code = 2991132972) 40 mg/dL >=50 L HDLC RATIO (test code = 2890886619) 4.6 <=4.5 H TRIG (test code = 6769638080) 128 mg/dL 30-170 LDL CHOL (test code = 07794-9) 117 mg/dL <=160 VLDL (test code = 2214886815) 26 mg/dL 5-60 Lab Interpretation (test cod e = 24374-3) [facility] (06531)(TOTAL CHOLESTEROL, TRIGLYCERIDES, HDL)2022-10-05 16:54:48* Test Item Value Reference Range Interpretation Comme nts CHOL (test code = 9060016610) 183 mg/dL 120-200 HDL (test code = 5497591022) 40 mg/dL >=50 L HDLC RATIO (test code = 0758432255) 4.6 <=4.5 H TRIG (test code = 9168426545) 128 mg/dL 30-170 LDL CHOL (test code = 99902-6) 117 mg/dL <=160 VLDL (test code = 1794969556) 26 mg/dL 5-60 Lab Interpretation (test cod e = 05128-1) [facility] (03773)(TOTAL CHOLESTEROL, TRIGLYCERIDES, HDL)2022-10-05 16:54:48* Test Item Value Reference Range Interpretation Comme nts CHOL (test code = 1597090481) 183 mg/dL 120-200 HDL (test code = 3657674127) 40 mg/dL >=50 L HDLC RATIO (test code = 5019247237) 4.6 <=4.5 H TRIG (test code = 5239440395) 128 mg/dL 30-170 LDL CHOL (test code = 64067-5) 117 mg/dL <=160 VLDL (test code = 6894166196) 26 mg/dL 5-60 Lab Interpretation (test cod e = 77846-3) [facility] (39173)(TOTAL CHOLESTEROL, TRIGLYCERIDES, HDL)2022-10-05 16:54:48* Test Item Value Reference Range Interpretation Comme nts CHOL (test code = 8796368812) 183 mg/dL 120-200 HDL (test code = 1799792110) 40 mg/dL >=50 L HDLC RATIO (test code = 8834944213) 4.6 <=4.5 H TRIG (test code = 9985722417) 128 mg/dL 30-170 LDL CHOL (test code = 05777-4) 117 mg/dL <=160 VLDL (test code = 7485634673) 26 mg/dL 5-60 Lab Interpretation (test cod e = 78487-7) [facility] (60675)(TOTAL CHOLESTEROL, TRIGLYCERIDES, HDL)2022-10-05 16:54:48* Test Item Value Reference Range Interpretation Comme nts CHOL (test code = 0736215607) 183 mg/dL 120-200 HDL (test code = 4689360512) 40 mg/dL >=50 L HDLC RATIO (test code = 0667277399) 4.6 <=4.5 H TRIG (test code = 1580810251) 128 mg/dL 30-170 LDL CHOL (test code = 04752-4) 117 mg/dL <=160 VLDL (test code = 5876123042) 26 mg/dL 5-60 Lab Interpretation (test cod e = 66172-4) [facility] (91756)(TOTAL CHOLESTEROL, TRIGLYCERIDES, HDL)2022-10-05 16:54:48* Test Item Value Reference Range Interpretation Comme nts CHOL (test code = 4767505463) 183 mg/dL 120-200 HDL (test code = 2607452433) 40 mg/dL >=50 L HDLC RATIO (test code = 8827245248) 4.6 <=4.5 H TRIG (test code = 3482701798) 128 mg/dL 30-170 LDL CHOL (test code = 94473-8) 117 mg/dL <=160 VLDL (test code = 1475023769) 26 mg/dL 5-60 Lab Interpretation (test cod e = 86882-2) [facility] (37338)(TOTAL CHOLESTEROL, TRIGLYCERIDES, HDL)2022-10-05 16:54:48* Test Item Value Reference Range Interpretation Comme nts CHOL (test code = 7215329144) 183 mg/dL 120-200 HDL (test code = 8721039753) 40 mg/dL >=50 L HDLC RATIO (test code = 7650248453) 4.6 <=4.5 H TRIG (test code = 6883070439) 128 mg/dL 30-170 LDL CHOL (test code = 18997-6) 117 mg/dL <=160 VLDL (test code = 1740238138) 26 mg/dL 5-60 Lab Interpretation (test cod e = 23997-8) [facility] (45396)(TOTAL CHOLESTEROL, TRIGLYCERIDES, HDL)2022-10-05 16:54:48* Test Item Value Reference Range Interpretation Comme nts CHOL (test code = 6230482777) 183 mg/dL 120-200 HDL (test code = 4007572297) 40 mg/dL >=50 L HDLC RATIO (test code = 4220089448) 4.6 <=4.5 H TRIG (test code = 9501761785) 128 mg/dL 30-170 LDL CHOL (test code = 33684-0) 117 mg/dL <=160 VLDL (test code = 2225217665) 26 mg/dL 5-60 Lab Interpretation (test cod e = 63727-4) [facility] (41599)(TOTAL CHOLESTEROL, TRIGLYCERIDES, HDL)2022-10-05 16:54:48* Test Item Value Reference Range Interpretation Comme nts CHOL (test code = 4401444938) 183 mg/dL 120-200 HDL (test code = 9064653631) 40 mg/dL >=50 L HDLC RATIO (test code = 4840415375) 4.6 <=4.5 H TRIG (test code = 8914895652) 128 mg/dL 30-170 LDL CHOL (test code = 00208-4) 117 mg/dL <=160 VLDL (test code = 6933735405) 26 mg/dL 5-60 Lab Interpretation (test cod e = 05182-4) [facility] (86785)(TOTAL CHOLESTEROL, TRIGLYCERIDES, HDL)2022-10-05 16:54:48* Test Item Value Reference Range Interpretation Comme nts CHOL (test code = 8663760948) 183 mg/dL 120-200 HDL (test code = 7686627105) 40 mg/dL >=50 L HDLC RATIO (test code = 6142066093) 4.6 <=4.5 H TRIG (test code = 3420169537) 128 mg/dL 30-170 LDL CHOL (test code = 16673-7) 117 mg/dL <=160 VLDL (test code = 2535937855) 26 mg/dL 5-60 Lab Interpretation (test cod e = 40183-6) [facility] (47184)(TOTAL CHOLESTEROL, TRIGLYCERIDES, HDL)2022-10-05 16:54:48* Test Item Value Reference Range Interpretation Comme nts CHOL (test code = 0668659639) 183 mg/dL 120-200 HDL (test code = 1475823335) 40 mg/dL >=50 L HDLC RATIO (test code = 7196940671) 4.6 <=4.5 H TRIG (test code = 5150505635) 128 mg/dL 30-170 LDL CHOL (test code = 95990-2) 117 mg/dL <=160 VLDL (test code = 5103005303) 26 mg/dL 5-60 Lab Interpretation (test cod e = 90198-4) [facility] (15410)(TOTAL CHOLESTEROL, TRIGLYCERIDES, HDL)2022-10-05 16:54:48* Test Item Value Reference Range Interpretation Comme nts CHOL (test code = 2745715819) 183 mg/dL 120-200 HDL (test code = 7098297280) 40 mg/dL >=50 L HDLC RATIO (test code = 0730347843) 4.6 <=4.5 H TRIG (test code = 4142143488) 128 mg/dL 30-170 LDL CHOL (test code = 79985-3) 117 mg/dL <=160 VLDL (test code = 1613645135) 26 mg/dL 5-60 Lab Interpretation (test cod e = 20588-2) [facility]C)2022-10-05 15:51:11* Test Item Value Reference Range Interpretation Comme nts HGB A1C (test code = 4548-4) 5.1 % 4.0-5.7 ZAINAB (test code = ZAINAB) Reference RangesNormal: <5.7%Prediabetes: 5.7 - 6.4%Diabetes: > 6.5% Lab Interpretation (test code = 26726-1) [facility]2022-10-05 15:51:11* Test Item Value Reference Range Interpretation Comme nts HGB A1C (test code = 4548-4) 5.1 % 4.0-5.7 ZAINAB (test code = ZAINAB) Reference RangesNormal: <5.7%Prediabetes: 5.7 - 6.4%Diabetes: > 6.5% Lab Interpretation (test code = 74806-5) [facility] 15:51:11* Test Item Value Reference Range Interpretation Comme nts HGB A1C (test code = 4548-4) 5.1 % 4.0-5.7 ZAINAB (test code = ZAINAB) Reference RangesNormal: <5.7%Prediabetes: 5.7 - 6.4%Diabetes: > 6.5% Lab Interpretation (test code = 76270-6) [facility]05 15:51:11* Test Item Value Reference Range Interpretation Comme nts HGB A1C (test code = 4548-4) 5.1 % 4.0-5.7 ZAINAB (test code = ZAINAB) Reference RangesNormal: <5.7%Prediabetes: 5.7 - 6.4%Diabetes: > 6.5% Lab Interpretation (test code = 82242-7) [facility]05 15:51:11* Test Item Value Reference Range Interpretation Comme nts HGB A1C (test code = 4548-4) 5.1 % 4.0-5.7 ZAINAB (test code = ZAINAB) Reference RangesNormal: <5.7%Prediabetes: 5.7 - 6.4%Diabetes: > 6.5% Lab Interpretation (test code = 22914-5) [facility]05 15:51:11* Test Item Value Reference Range Interpretation Comme nts HGB A1C (test code = 4548-4) 5.1 % 4.0-5.7 ZAINAB (test code = ZAINAB) Reference RangesNormal: <5.7%Prediabetes: 5.7 - 6.4%Diabetes: > 6.5% Lab Interpretation (test code = 86820-3) [facility]05 15:51:11* Test Item Value Reference Range Interpretation Comme nts HGB A1C (test code = 4548-4) 5.1 % 4.0-5.7 ZAINAB (test code = ZAINAB) Reference RangesNormal: <5.7%Prediabetes: 5.7 - 6.4%Diabetes: > 6.5% Lab Interpretation (test code = 55974-8) [facility]05 15:51:11* Test Item Value Reference Range Interpretation Comme nts HGB A1C (test code = 4548-4) 5.1 % 4.0-5.7 ZAINAB (test code = ZAINAB) Reference RangesNormal: <5.7%Prediabetes: 5.7 - 6.4%Diabetes: > 6.5% Lab Interpretation (test code = 91290-6) [facility]05 15:51:11* Test Item Value Reference Range Interpretation Comme nts HGB A1C (test code = 4548-4) 5.1 % 4.0-5.7 ZAINAB (test code = ZAINAB) Reference RangesNormal: <5.7%Prediabetes: 5.7 - 6.4%Diabetes: > 6.5% Lab Interpretation (test code = 28752-8) [facility]05 15:51:11* Test Item Value Reference Range Interpretation Comme nts HGB A1C (test code = 4548-4) 5.1 % 4.0-5.7 ZAINAB (test code = ZAINAB) Reference RangesNormal: <5.7%Prediabetes: 5.7 - 6.4%Diabetes: > 6.5% Lab Interpretation (test code = 32359-0) [facility]2022-10-05 15:51:11* Test Item Value Reference Range Interpretation Comme nts HGB A1C (test code = 4548-4) 5.1 % 4.0-5.7 ZAINAB (test code = ZAINAB) Reference RangesNormal: <5.7%Prediabetes: 5.7 - 6.4%Diabetes: > 6.5% Lab Interpretation (test code = 19546-0) [facility]05 15:51:11* Test Item Value Reference Range Interpretation Comme nts HGB A1C (test code = 4548-4) 5.1 % 4.0-5.7 ZAINAB (test code = ZAINAB) Reference RangesNormal: <5.7%Prediabetes: 5.7 - 6.4%Diabetes: > 6.5% Lab Interpretation (test code = 19999-7) [facility]2022-10-05 15:51:11* Test Item Value Reference Range Interpretation Comme nts HGB A1C (test code = 4548-4) 5.1 % 4.0-5.7 ZAINAB (test code = ZAINAB) Reference RangesNormal: <5.7%Prediabetes: 5.7 - 6.4%Diabetes: > 6.5% Lab Interpretation (test code = 33275-2) [facility]2022-10-05 15:51:11* Test Item Value Reference Range Interpretation Comme nts HGB A1C (test code = 4548-4) 5.1 % 4.0-5.7 ZAINAB (test code = ZAINAB) Reference RangesNormal: <5.7%Prediabetes: 5.7 - 6.4%Diabetes: > 6.5% Lab Interpretation (test code = 18535-3) [id number] 15:20:32* Test Item Value Reference Range Interpretation [...] g/dL 31.6-35.1 L RDW-SD (test code = 95700-2) 47.8 fL 39.0-49.9 RDW-CV (test code = 788-0) 18.0 % 12.0-15.5 H PLT (test code = 777-3) 296 See_Comment [Automated kWhOURSa ge] The system which generated this result transmitted reference range: 166 - 358 10*3/?L. The reference range was not used to interpret this result as normal/abnormal. MPV (test code = 06748-9) 10.7 fL 9.5-12.9 NRBC/100 WBC (test code = [id number]) 0.0 See_Comment [Automated Bracketz ssage] The system which generated this result transmitted reference range: 0.0 - 10.0 /100 WBCs. The reference range was not used to interpret this result as normal/abnormal. NRBC x10^3 (test code = [id number]) See_Comment [Automated messa ge] The system which generated this result transmitted reference range: 10*3/?L. The reference range was not used to interpret this result as normal/abnormal. GRAN MAT (NEUT) % (test code = 770-8) 70.0 % IMM GRAN % (test code = [id number]) 0.40 % LYMPH % (test code = 736-9) 18.7 % MONO % (test code = 5905-5) 5.7 % EOS % (test code = 713-8) 4.5 % BASO % (test code = 706-2) 0.7 % GRAN MAT x10^3(ANC) (test code = [id number]) 4.66 10*3/uL 1.88-7.09 IMM GRAN x10^3 (test code = 7236308471) 0.03 10*3/uL 0.00-0.06 LYMPH x10^3 (test code = 731-0) 1.25 10*3/uL 1.32-3.29 L MONO x10^3 (test code = 742-7) 0.38 10*3/uL 0.33-0.92 EOS x10^3 (test code = 711-2) 0.30 10*3/uL 0.03-0.39 BASO x10^3 (test code = 704-7) 0.05 10*3/uL 0.01-0.07 Lab Interpretation (test code = 65058-2) Abnormal [facility] WITH [id number] 15:20:32* Test Item Value Reference Range Interpretation Comme nts WBC (test code = 6690-2) 6.67 See_Comment [Automated kWhOURSa ge] The system which generated this result transmitted reference range: 4.30 - 11.10 10*3/?L. The reference range was not used to interpret this result as normal/abnormal. RBC (test code = 789-8) 4.04 See_Comment [Automated kWhOURSa ge] The system which generated this result [...] g/dL 31.6-35.1 L RDW-SD (test code = 49254-1) 47.8 fL 39.0-49.9 RDW-CV (test code = 788-0) 18.0 % 12.0-15.5 H PLT (test code = 777-3) 296 See_Comment [Automated kWhOURSa ge] The system which generated this result transmitted reference range: 166 - 358 10*3/?L. The reference range was not used to interpret this result as normal/abnormal. MPV (test code = 49005-0) 10.7 fL 9.5-12.9 NRBC/100 WBC (test code = 1855462608) 0.0 See_Comment [Automated Bracketz ssage] The system which generated this result transmitted reference range: 0.0 - 10.0 /100 WBCs. The reference range was not used to interpret this result as normal/abnormal. NRBC x10^3 (test code = 7027634117) See_Comment [Automated kWhOURSa ge] The system which generated this result transmitted reference range: 10*3/?L. The reference range was not used to interpret this result as normal/abnormal. GRAN MAT (NEUT) % (test code = 770-8) 70.0 % IMM GRAN % (test code = 4512574961) 0.40 % LYMPH % (test code = 736-9) 18.7 % MONO % (test code = 5905-5) 5.7 % EOS % (test code = 713-8) 4.5 % BASO % (test code = 706-2) 0.7 % GRAN MAT x10^3(ANC) (test code = 0207640505) 4.66 10*3/uL 1.88-7.09 IMM GRAN x10^3 (test code = 8417554777) 0.03 10*3/uL 0.00-0.06 LYMPH x10^3 (test code = 731-0) 1.25 10*3/uL 1.32-3.29 L MONO x10^3 (test code = 742-7) 0.38 10*3/uL 0.33-0.92 EOS x10^3 (test code = 711-2) 0.30 10*3/uL 0.03-0.39 BASO x10^3 (test code = 704-7) 0.05 10*3/uL 0.01-0.07 Lab Interpretation (test code = 40697-8) Abnormal [facility] WITH [id number] 15:20:32* Test Item Value Reference Range Interpretation [...] g/dL 31.6-35.1 L RDW-SD (test code = 94171-0) 47.8 fL 39.0-49.9 RDW-CV (test code = 788-0) 18.0 % 12.0-15.5 H PLT (test code = 777-3) 296 See_Comment [Automated messa ge] The system which generated this result transmitted reference range: 166 - 358 10*3/?L. The reference range was not used to interpret this result as normal/abnormal. MPV (test code = 44690-5) 10.7 fL 9.5-12.9 NRBC/100 WBC (test code = 9428841422) 0.0 See_Comment [Automated Bracketz ssage] The system which generated this result transmitted reference range: 0.0 - 10.0 /100 WBCs. The reference range was not used to interpret this result as normal/abnormal. NRBC x10^3 (test code = 6098746948) See_Comment [Automated messa ge] The system which generated this result transmitted reference range: 10*3/?L. The reference range was not used to interpret this result as normal/abnormal. GRAN MAT (NEUT) % (test code = 770-8) 70.0 % IMM GRAN % (test code = 1488783181) 0.40 % LYMPH % (test code = 736-9) 18.7 % MONO % (test code = 5905-5) 5.7 % EOS % (test code = 713-8) 4.5 % BASO % (test code = 706-2) 0.7 % GRAN MAT x10^3(ANC) (test code = 6752727707) 4.66 10*3/uL 1.88-7.09 IMM GRAN x10^3 (test code = 2959054661) 0.03 10*3/uL 0.00-0.06 LYMPH x10^3 (test code = 731-0) 1.25 10*3/uL 1.32-3.29 L MONO x10^3 (test code = 742-7) 0.38 10*3/uL 0.33-0.92 EOS x10^3 (test code = 711-2) 0.30 10*3/uL 0.03-0.39 BASO x10^3 (test code = 704-7) 0.05 10*3/uL 0.01-0.07 Lab Interpretation (test code = 35103-3) Abnormal [facility]2023-06-14 17:27:33* Test Item Value Reference Range Interpretation Comme nts Emison (test code = 7597147388) 0.3 mmol/L 0.6-1.2 L ZAINAB (test code = ZAINAB) Toxic Range: ? Greater than 1.2 mmol/L Lab Interpretation (test code = 84457-1) Abnormal [facility]2023-06-14 17:27:33* Test Item Value Reference Range Interpretation Comme nts Emison (test code = 9305021046) 0.3 mmol/L 0.6-1.2 L ZAINAB (test code = ZAINAB) Toxic Range: ? Greater than 1.2 mmol/L Lab Interpretation (test code = 34514-6) Abnormal [facility]2023-06-14 17:27:33* Test Item Value Reference Range Interpretation Comme nts Emison (test code = 2186987741) 0.3 mmol/L 0.6-1.2 L ZAINAB (test code = ZAINAB) Toxic Range: ? Greater than 1.2 mmol/L Lab Interpretation (test code = 64871-5) Abnormal [facility]2023-06-14 17:27:33* Test Item Value Reference Range Interpretation Comme nts Emison (test code = 6273654673) 0.3 mmol/L 0.6-1.2 L ZAINAB (test code = ZAINAB) Toxic Range: ? Greater than 1.2 mmol/L Lab Interpretation (test code = 04425-7) Abnormal [address]06-14 17:27:33* Test Item Value Reference Range Interpretation Comme nts Emison (test code = 6401485494) 0.3 mmol/L 0.6-1.2 L ZAINAB (test code = ZAINAB) Toxic Range: ? Greater than 1.2 mmol/L Lab Interpretation (test code = 16159-8) Abnormal [facility]2023-06-14 17:27:33* Test Item Value Reference Range Interpretation Comme nts Emison (test code = 6483926291) 0.3 mmol/L 0.6-1.2 L ZAINAB (test code = ZAINAB) Toxic Range: ? Greater than 1.2 mmol/L Lab Interpretation (test code = 16996-9) Abnormal [address]06-14 17:27:33* Test Item Value Reference Range Interpretation Comme nts Emison (test code = 2997575019) 0.3 mmol/L 0.6-1.2 L ZAINAB (test code = ZAINAB) Toxic Range: ? Greater than 1.2 mmol/L Lab Interpretation (test code = 34654-0) Abnormal [facility]2023-06-14 17:27:33* Test Item Value Reference Range Interpretation Comme nts Emison (test code = 9058324486) 0.3 mmol/L 0.6-1.2 L ZAINAB (test code = ZAINAB) Toxic Range: ? Greater than 1.2 mmol/L Lab Interpretation (test code = 62338-2) Abnormal [facility]2023-06-14 17:27:33* Test Item Value Reference Range Interpretation Comme nts Emison (test code = 3020031237) 0.3 mmol/L 0.6-1.2 L ZAINAB (test code = ZAINAB) Toxic Range: ? Greater than 1.2 mmol/L Lab Interpretation (test code = 10826-8) Abnormal [facility]2023-06-14 17:27:33* Test Item Value Reference Range Interpretation Comme nts Emison (test code = 1132765375) 0.3 mmol/L 0.6-1.2 L ZAINAB (test code = ZAINAB) Toxic Range: ? Greater than 1.2 mmol/L Lab Interpretation (test code = 18846-6) Abnormal [facility]2023-06-14 17:27:33* Test Item Value Reference Range Interpretation Comme nts Emison (test code = 9412206208) 0.3 mmol/L 0.6-1.2 L ZAINAB (test code = ZAINAB) Toxic Range: ? Greater than 1.2 mmol/L Lab Interpretation (test code = 55212-7) Abnormal [facility]2023-06-14 17:27:33* Test Item Value Reference Range Interpretation Comme nts Emison (test code = 9035406585) 0.3 mmol/L 0.6-1.2 L ZAINAB (test code = ZAINAB) Toxic Range: ? Greater than 1.2 mmol/L Lab Interpretation (test code = 46178-0) Abnormal [facility] W/AUTO DIFF WITH [id number] 06:12:05* Test Item Value Reference Range Interpretation [...] = 1065) 0.0 /100 WBC'S See_Comment [Automated kWhOURSa ge] The system which generated this result [...] 0.00-0.10 ABS NUCLEATED RBCS (test code = 56248) 0.00 K/UL 0.00-0.11 RETICULOCYTE WITH [id number] 06:12:05* Test Item Value Reference Range Interpretation Comme nts RETICULOCYTE COUNT (test code = 1018) 2.50 % 0.80-2.40 H ABSOLUTE RETICULOCYTE (test code = 53296) 103.3 K/UL 32.0-105.0 [facility] has important pathology staff changes effective 04/12/2022. New pathology staff will provide uninterrupted, excellent patient care and clinical consultation. See URL: [email or web address]. UNLESS OTHERWISE INDICATED, ALL TESTING PERFORMED AT [facility] [address] [place] [address] AGRICULTURAL AGENT: CHARLA HERNANDEZ M.D. CLIA NUMBER [id number] [facility] [place]. [id number] CBC W/AUTO [id number] 00:00:00* Test Item Value Reference Range Interpretation [...] ABS NUCLEATED RBCS (test cod e = 84132) 0.00 K/UL Robert CaliRETICULOCYTE WITH [id number] 00:00:00* Test Item Value Reference Range Interpretation Comme nts RETICULOCYTE COUNT (test cod e = 1018) 2.50 % ABSOLUTE RETICULOCYTE (test code = 57777) 103.3 K/UL Robert CaliCBC W/AUTO [id number] 00:00:00* Test Item Value Reference Range Interpretation [...] ABS NUCLEATED RBCS (test cod e = 76885) 0.00 K/UL Robert CaliRETICULOCYTE WITH [id number] 00:00:00* Test Item Value Reference Range Interpretation Comme nts RETICULOCYTE COUNT (test cod e = 1018) 2.50 % ABSOLUTE RETICULOCYTE (test code = 60170) 103.3 K/UL Robert CaliCBC W/AUTO [id number] 00:00:00* Test Item Value Reference Range Interpretation [...] ABS NUCLEATED RBCS (test cod e = 02419) 0.00 K/UL Robert Ambrose VirajRETICULOCYTE WITH [id number] 00:00:00* Test Item Value Reference Range Interpretation Comme nts RETICULOCYTE COUNT (test cod e = 1018) 2.50 % ABSOLUTE RETICULOCYTE (test code = 53773) 103.3 K/UL Robert Ambrose VirajCBC W/AUTO [id number] 00:00:00* Test Item Value Reference Range Interpretation [...] ABS NUCLEATED RBCS (test cod e = 78594) 0.00 K/UL Robert Ambrose VirajRETICULOCYTE WITH [id number] 00:00:00* Test Item Value Reference Range Interpretation Comme nts RETICULOCYTE COUNT (test cod e = 1018) 2.50 % ABSOLUTE RETICULOCYTE (test code = 04549) 103.3 K/UL Robert Ambrose VirajCBC W/AUTO [id number] 00:00:00* Test Item Value Reference Range Interpretation [...] ABS NUCLEATED RBCS (test cod e = 17314) 0.00 K/UL Robert CaliRETICULOCYTE WITH [id number] 00:00:00* Test Item Value Reference Range Interpretation Comme nts RETICULOCYTE COUNT (test cod e = 1018) 2.50 % ABSOLUTE RETICULOCYTE (test code = 88322) 103.3 K/UL Robert CaliCBC W/AUTO [id number] 00:00:00* Test Item Value Reference Range Interpretation [...] ABS NUCLEATED RBCS (test cod e = 10724) 0.00 K/UL Robert CaliRETICULOCYTE WITH [id number] 00:00:00* Test Item Value Reference Range Interpretation Comme nts RETICULOCYTE COUNT (test cod e = 1018) 2.50 % ABSOLUTE RETICULOCYTE (test code = 33978) 103.3 K/UL Robert Bailon NON-REFLEX TO [id number] 05:55:49* Test Item Value Reference Range Interpretation Comme nts ANTI-NUCLEAR ANTIBODIES (test code = 3506) NEGATIVE NEGATIVE METHODOLOGY IS I NDIRECT IMMUNOFLUORESCENT ASSAY (IFA) WITH HUMAN EPITHELIAL (HEP-2) CELL LINE SUBSTRATE. YAZMIN NON-REFLEX TO [id number] 00:00:00* Test Item Value Reference Range Interpretation Comme nts ANTI-NUCLEAR ANTIBODIES (aram t code = 3506) NEGATIVE Robert CaliANA NON-REFLEX TO [id number] 00:00:00* Test Item Value Reference Range Interpretation Comme nts ANTI-NUCLEAR ANTIBODIES (aram t code = 3506) NEGATIVE Robert CaliANA NON-REFLEX TO [id number] 00:00:00* Test Item Value Reference Range Interpretation Comme nts ANTI-NUCLEAR ANTIBODIES (aram t code = 3506) NEGATIVE Robert Ambrose AustinANA NON-REFLEX TO [id number] 00:00:00* Test Item Value Reference Range Interpretation Comme nts ANTI-NUCLEAR ANTIBODIES (aram t code = 3506) NEGATIVE Robert CaliANA NON-REFLEX TO [id number] 00:00:00* Test Item Value Reference Range Interpretation Comme nts ANTI-NUCLEAR ANTIBODIES (aram t code = 3506) NEGATIVE Robert Ambrose AustinANA NON-REFLEX TO [id number] 00:00:00* Test Item Value Reference Range Interpretation Comme nts ANTI-NUCLEAR ANTIBODIES (aram t code = 3506) NEGATIVE Robert CaliFOLATE, [id number] 12:42:51* Test Item Value Reference Range Interpretation [...] . . . NG/ML >1504 TSH, THIRD [id number] 11:05:54* Test Item Value Reference Range Interpretation Comme [facility] TSH, THIRD GENERATION (test code = 2821) 1.310 UIU/ML 0.400-4.100 VITAMIN [id number] 11:05:54* Test Item Value Reference Range Interpretation Comme nts VITAMIN B-12 (test code = 2840) 436 PG/ML 200-950 VITAMIN D, 25 [id number] 11:03:45* Test Item Value Reference Range Interpretation Comme [facility] VITAMIN D, 25 [...] . . . . . NG/ML 30-100 [facility] has important pathology staff changes effective 04/12/2022. New pathology staff will provide uninterrupted, excellent patient care and clinical consultation. See URL: [email or web address]. UNLESS OTHERWISE INDICATED, ALL TESTING PERFORMED AT [facility] [address] [place] [address] AGRICULTURAL AGENT: CHARLA HERNANDEZ M.D. CLIA NUMBER [id number] [facility] [place]. [id number] URIC [id number] 05:28:57* Test Item Value Reference Range Interpretation Comme [facility] URIC ACID (test code = 2233) 6.7 MG/DL 2.7-6.1 H COMPREHENSIVE METABOLIC [id number] 05:28:57* Test Item Value Reference Range Interpretation Comme nts GLUCOSE (test code = 2216) 103 MG/DL 70-99 H BUN (test code = 2207) 9 MG/DL 6-20 CREATININE (test code = 2213) 0.72 MG/DL 0.60-1.30 eGFR (2020 CKD-EPI) (test code = 52712) 106 ML/MIN/1.73 >60 CALC BUN/CREAT (test code [...] code = 2219) 26 U/L 5-40 LIPID [id number] 05:28:57* Test Item Value Reference Range Interpretation [...] SPECIMENS. FOR MOREINFORMATION, SEE CLIENT ANNOUNCEMENT AT [email or web address] RISK RATIO LDL/HDL (test code = 2238) 3.04 RATIO <3.22 HEMOGLOBIN [id number] 02:54:46* Test Item Value Reference Range Interpretation Comme nts HEMOGLOBIN A1c (test code = 00199) 5.6 % 4.2-5.6 CBC W/AUTO DIFF WITH [id number] 01:58:18* Test Item Value Reference Range Interpretation [...] = 1065) 0.0 /100 WBC'S See_Comment [Automated kWhOURSa ge] The system which generated this result [...] 0.00-0.10 ABS NUCLEATED RBCS (test code = 51518) 0.00 K/UL 0.00-0.11 VITAMIN [id number] 00:00:00* Test Item Value Reference Range Interpretation Comme [facility] VITAMIN B-12 (test code = 2840) 436 PG/ML Robert CaliFOLATE, [id number] 00:00:00* Test Item Value Reference Range Interpretation Comme [facility] HEMATOCRIT (test code = 1004) 28.7 % FOLATE, RBC (test code = 2690) 1185 NG/ML Robert CaliURIC [id number] 00:00:00* Test Item Value Reference Range Interpretation Comme [facility] URIC ACID (test code = 2233) 6.7 MG/DL Robert CaliVITAMIN D, 25 [id number] 00:00:00* Test Item Value Reference Range Interpretation Comme [facility] VITAMIN D, 25 OH (test code = 4958) 13 NG/ML Robert CaliCOMPREHENSIVE METABOLIC [id number] 00:00:00* Test Item Value Reference Range Interpretation Comme [facility] GLUCOSE (test code = 2217) 103 MG/DL BUN (test code = 2208) 9 MG/DL CREATININE (test code = 2214) 0.72 MG/DL eGFR (2020 CKD-EPI) (test code = 74963) 106 ML/MIN/1.73 CALC BUN/CREAT (test code = [...] code = 2219) 26 U/L Robert CaliLIPID [id number] 00:00:00* Test Item Value Reference Range Interpretation Comme nts CHOLESTEROL (test code = 2210) 207 MG/DL TRIGLYCERIDES (test code = 2232) 130 MG/DL HDL CHOLESTEROL (test code = 2220) 45 MG/DL CALC LDL CHOL (test code = 2237) 137 MG/DL RISK RATIO LDL/HDL (test cod e = 2238) 3.04 RATIO Robert CaliHEMOGLOBIN [id number] 00:00:00* Test Item Value Reference Range Interpretation Comme nts HEMOGLOBIN A1c (test code = 93595) 5.6 % Robert CaliCBC W/AUTO [id number] 00:00:00* Test Item Value Reference Range Interpretation [...] ABS NUCLEATED RBCS (test cod e = 63962) 0.00 K/UL Robert CaliTSH, THIRD [id number] 00:00:00* Test Item Value Reference Range Interpretation Comme [facility] TSH, THIRD GENERATION (test code = 2821) 1.310 UIU/ML Robert CaliVITAMIN [id number] 00:00:00* Test Item Value Reference Range Interpretation Comme [facility] VITAMIN B-12 (test code = 2840) 436 PG/ML Robert CaliFOLATE, [id number] 00:00:00* Test Item Value Reference Range Interpretation Comme [facility] HEMATOCRIT (test code = 1004) 28.7 % FOLATE, RBC (test code = 2690) 1185 NG/ML Robert CaliURIC [id number] 00:00:00* Test Item Value Reference Range Interpretation Comme [facility] URIC ACID (test code = 2233) 6.7 MG/DL Robert CaliVITAMIN D, 25 [id number] 00:00:00* Test Item Value Reference Range Interpretation Comme [facility] VITAMIN D, 25 OH (test code = 4958) 13 NG/ML Robert CaliCOMPREHENSIVE METABOLIC [id number] 00:00:00* Test Item Value Reference Range Interpretation Comme [facility] GLUCOSE (test code = 2217) 103 MG/DL BUN (test code = 2208) 9 MG/DL CREATININE (test code = 2214) 0.72 MG/DL eGFR (2020 CKD-EPI) (test code = 88551) 106 ML/MIN/1.73 CALC BUN/CREAT (test code = [...] code = 2219) 26 U/L Robert CaliLIPID [id number] 00:00:00* Test Item Value Reference Range Interpretation Comme nts CHOLESTEROL (test code = 2210) 207 MG/DL TRIGLYCERIDES (test code = 2232) 130 MG/DL HDL CHOLESTEROL (test code = 2220) 45 MG/DL CALC LDL CHOL (test code = 2237) 137 MG/DL RISK RATIO LDL/HDL (test cod e = 2238) 3.04 RATIO Robert CaliHEMOGLOBIN [id number] 00:00:00* Test Item Value Reference Range Interpretation Comme [facility] HEMOGLOBIN A1c (test code = 69676) 5.6 % Robert CaliCBC W/AUTO [id number] 00:00:00* Test Item Value Reference Range Interpretation [...] ABS NUCLEATED RBCS (test cod e = 50750) 0.00 K/UL Robert FullerH, THIRD [id number] 00:00:00* Test Item Value Reference Range Interpretation Comme [facility] TSH, THIRD GENERATION (test code = 2821) 1.310 UIU/ML Robert CaliVITAMIN [id number] 00:00:00* Test Item Value Reference Range Interpretation Comme [facility] VITAMIN B-12 (test code = 2840) 436 PG/ML Robert CaliFOLATE, [id number] 00:00:00* Test Item Value Reference Range Interpretation Comme [facility] HEMATOCRIT (test code = 1004) 28.7 % FOLATE, RBC (test code = 2690) 1185 NG/ML Robert CaliURIC [id number] 00:00:00* Test Item Value Reference Range Interpretation Comme [facility] URIC ACID (test code = 2233) 6.7 MG/DL Robert CaliVITAMIN D, 25 [id number] 00:00:00* Test Item Value Reference Range Interpretation Comme [facility] VITAMIN D, 25 OH (test code = 4958) 13 NG/ML Robert CaliCOMPREHENSIVE METABOLIC [id number] 00:00:00* Test Item Value Reference Range Interpretation Comme nts GLUCOSE (test code = 2217) 103 MG/DL BUN (test code = 2208) 9 MG/DL CREATININE (test code = 2214) 0.72 MG/DL eGFR (2020 CKD-EPI) (test code = 08637) 106 ML/MIN/1.73 CALC BUN/CREAT (test code = [...] code = 2219) 26 U/L Robert CaliLIPID [id number] 00:00:00* Test Item Value Reference Range Interpretation Comme nts CHOLESTEROL (test code = 2210) 207 MG/DL TRIGLYCERIDES (test code = 2232) 130 MG/DL HDL CHOLESTEROL (test code = 2220) 45 MG/DL CALC LDL CHOL (test code = 2237) 137 MG/DL RISK RATIO LDL/HDL (test cod e = 2238) 3.04 RATIO Robert CaliHEMOGLOBIN [id number] 00:00:00* Test Item Value Reference Range Interpretation Comme nts HEMOGLOBIN A1c (test code = 73159) 5.6 % Robert CaliCBC W/AUTO [id number] 00:00:00* Test Item Value Reference Range Interpretation [...] ABS NUCLEATED RBCS (test cod e = 84081) 0.00 K/UL Robert CaliTSH, THIRD [id number] 00:00:00* Test Item Value Reference Range Interpretation Comme [facility] TSH, THIRD GENERATION (test code = 2821) 1.310 UIU/ML Robert CaliVITAMIN [id number] 00:00:00* Test Item Value Reference Range Interpretation Comme [facility] VITAMIN B-12 (test code = 2840) 436 PG/ML Robert CaliFOLATE, [id number] 00:00:00* Test Item Value Reference Range Interpretation Comme [facility] HEMATOCRIT (test code = 1004) 28.7 % FOLATE, RBC (test code = 2690) 1185 NG/ML Robert CaliURIC [id number] 00:00:00* Test Item Value Reference Range Interpretation Comme [facility] URIC ACID (test code = 2233) 6.7 MG/DL Robert CaliVITAMIN D, 25 [id number] 00:00:00* Test Item Value Reference Range Interpretation Comme [facility] VITAMIN D, 25 OH (test code = 4958) 13 NG/ML Robert CaliCOMPREHENSIVE METABOLIC [id number] 00:00:00* Test Item Value Reference Range Interpretation Comme nts GLUCOSE (test code = 2217) 103 MG/DL BUN (test code = 2208) 9 MG/DL CREATININE (test code = 2214) 0.72 MG/DL eGFR (2020 CKD-EPI) (test code = 11895) 106 ML/MIN/1.73 CALC BUN/CREAT (test code = [...] code = 2219) 26 U/L Robert CaliLIPID [id number] 00:00:00* Test Item Value Reference Range Interpretation Comme nts CHOLESTEROL (test code = 2210) 207 MG/DL TRIGLYCERIDES (test code = 2232) 130 MG/DL HDL CHOLESTEROL (test code = 2220) 45 MG/DL CALC LDL CHOL (test code = 2237) 137 MG/DL RISK RATIO LDL/HDL (test cod e = 2238) 3.04 RATIO Robert CaliHEMOGLOBIN [id number] 00:00:00* Test Item Value Reference Range Interpretation Comme nts HEMOGLOBIN A1c (test code = 72923) 5.6 % Robert CaliCBC W/AUTO [id number] 00:00:00* Test Item Value Reference Range Interpretation [...] ABS NUCLEATED RBCS (test cod e = 19493) 0.00 K/UL Robert FullerH, THIRD [id number] 00:00:00* Test Item Value Reference Range Interpretation Comme [facility] TSH, THIRD GENERATION (test code = 2821) 1.310 UIU/ML Robert CaliVITAMIN [id number] 00:00:00* Test Item Value Reference Range Interpretation Comme [facility] VITAMIN B-12 (test code = 2840) 436 PG/ML Robert CaliFOLATE, [id number] 00:00:00* Test Item Value Reference Range Interpretation Comme [facility] HEMATOCRIT (test code = 1004) 28.7 % FOLATE, RBC (test code = 2690) 1185 NG/ML Robert CaliURIC [id number] 00:00:00* Test Item Value Reference Range Interpretation Comme [facility] URIC ACID (test code = 2233) 6.7 MG/DL Robert CaliVITAMIN D, 25 [id number] 00:00:00* Test Item Value Reference Range Interpretation Comme [facility] VITAMIN D, 25 OH (test code = 4958) 13 NG/ML Robert CaliCOMPREHENSIVE METABOLIC [id number] 00:00:00* Test Item Value Reference Range Interpretation Comme nts GLUCOSE (test code = 2217) 103 MG/DL BUN (test code = 2208) 9 MG/DL CREATININE (test code = 2214) 0.72 MG/DL eGFR (2020 CKD-EPI) (test code = 15189) 106 ML/MIN/1.73 CALC BUN/CREAT (test code = [...] code = 2219) 26 U/L Robert CaliLIPID [id number] 00:00:00* Test Item Value Reference Range Interpretation Comme nts CHOLESTEROL (test code = 2210) 207 MG/DL TRIGLYCERIDES (test code = 2232) 130 MG/DL HDL CHOLESTEROL (test code = 2220) 45 MG/DL CALC LDL CHOL (test code = 2237) 137 MG/DL RISK RATIO LDL/HDL (test cod e = 2238) 3.04 RATIO Robert CaliHEMOGLOBIN [id number] 00:00:00* Test Item Value Reference Range Interpretation Comme nts HEMOGLOBIN A1c (test code = 81727) 5.6 % Robert CaliCBC W/AUTO [id number] 00:00:00* Test Item Value Reference Range Interpretation [...] ABS NUCLEATED RBCS (test cod e = 66916) 0.00 K/UL Robert CaliTSH, THIRD [id number] 00:00:00* Test Item Value Reference Range Interpretation Comme evelia TSH, THIRD GENERATION (test code = 2821) 1.310 UIU/ML Robert CaliVITAMIN [id number] 00:00:00* Test Item Value Reference Range Interpretation Comme evelia VITAMIN B-12 (test code = 2840) 436 PG/ML Robert CaliFOLATE, [id number] 00:00:00* Test Item Value Reference Range Interpretation Comme evelia HEMATOCRIT (test code = 1004) 28.7 % FOLATE, RBC (test code = 2690) 1185 NG/ML Robert CaliURIC [id number] 00:00:00* Test Item Value Reference Range Interpretation Comme evelia URIC ACID (test code = 2233) 6.7 MG/DL Robert CaliVITAMIN D, 25 [id number] 00:00:00* Test Item Value Reference Range Interpretation Comme evelia VITAMIN D, 25 OH (test code = 4958) 13 NG/ML Robert CaliCOMPREHENSIVE METABOLIC [id number] 00:00:00* Test Item Value Reference Range Interpretation Comme nts GLUCOSE (test code = 2217) 103 MG/DL BUN (test code = 2208) 9 MG/DL CREATININE (test code = 2214) 0.72 MG/DL eGFR (2020 CKD-EPI) (test code = 31809) 106 ML/MIN/1.73 CALC BUN/CREAT (test code = [...] code = 2219) 26 U/L Robert CaliLIPID [id number] 00:00:00* Test Item Value Reference Range Interpretation Comme nts CHOLESTEROL (test code = 2210) 207 MG/DL TRIGLYCERIDES (test code = 2232) 130 MG/DL HDL CHOLESTEROL (test code = 2220) 45 MG/DL CALC LDL CHOL (test code = 2237) 137 MG/DL RISK RATIO LDL/HDL (test cod e = 2238) 3.04 RATIO Robert CaliHEMOGLOBIN [id number] 00:00:00* Test Item Value Reference Range Interpretation Comme nts HEMOGLOBIN A1c (test code = 51992) 5.6 % Robert CaliCBC W/AUTO [id number] 00:00:00* Test Item Value Reference Range Interpretation [...] ABS NUCLEATED RBCS (test cod e = 97902) 0.00 K/UL Robert FullerH, THIRD [id number] 00:00:00* Test Item Value Reference Range Interpretation Comme nts TSH, THIRD GENERATION (test code = 2821) 1.310 UIU/ML Robert [id number] 20:05:22* Test Item Value Reference Range Interpretation Comme nts Emison (test code = 6251013110) 1.1 mmol/L 0.6-1.2 ZAINAB (test code = ZAINAB) Toxic Range: ? Greater than 1.2 mmol/L Lab Interpretation (test code = 07198-9) [facility]2023-01-04 20:05:22* Test Item Value Reference Range Interpretation Comme nts Emison (test code = 4537948421) 1.1 mmol/L 0.6-1.2 ZAINAB (test code = ZAINAB) Toxic Range: ? Greater than 1.2 mmol/L Lab Interpretation (test code = 63700-8) [facility]2023-01-04 20:05:22* Test Item Value Reference Range Interpretation Comme nts Emison (test code = 8108255407) 1.1 mmol/L 0.6-1.2 ZAINAB (test code = ZAINAB) Toxic Range: ? Greater than 1.2 mmol/L Lab Interpretation (test code = 58823-7) [facility]2023-01-04 20:05:22* Test Item Value Reference Range Interpretation Comme nts Emison (test code = 5633629207) 1.1 mmol/L 0.6-1.2 ZAINAB (test code = ZAINAB) Toxic Range: ? Greater than 1.2 mmol/L Lab Interpretation (test code = 81513-4) [address]01-04 20:05:22* Test Item Value Reference Range Interpretation Comme nts Emison (test code = 6900987575) 1.1 mmol/L 0.6-1.2 ZAINAB (test code = ZAINAB) Toxic Range: ? Greater than 1.2 mmol/L Lab Interpretation (test code = 51635-3) [address]01-04 20:05:22* Test Item Value Reference Range Interpretation Comme nts Emison (test code = 3900530528) 1.1 mmol/L 0.6-1.2 ZAINAB (test code = ZAINAB) Toxic Range: ? Greater than 1.2 mmol/L Lab Interpretation (test code = 77609-9) [address]01-04 20:05:22* Test Item Value Reference Range Interpretation Comme nts Emison (test code = 9213545475) 1.1 mmol/L 0.6-1.2 ZAINAB (test code = ZAINAB) Toxic Range: ? Greater than 1.2 mmol/L Lab Interpretation (test code = 13890-4) [facility]2023-01-04 20:05:22* Test Item Value Reference Range Interpretation Comme nts Emison (test code = 3165905592) 1.1 mmol/L 0.6-1.2 ZIANAB (test code = ZAINAB) Toxic Range: ? Greater than 1.2 mmol/L Lab Interpretation (test code = 56901-6) [address]01-04 20:05:22* Test Item Value Reference Range Interpretation Comme nts Emison (test code = 1412349421) 1.1 mmol/L 0.6-1.2 ZAINAB (test code = ZAINAB) Toxic Range: ? Greater than 1.2 mmol/L Lab Interpretation (test code = 32835-4) [place] [id number] 20:05:22* Test Item Value Reference Range Interpretation Comme nts Emison (test code = 4781610437) 1.1 mmol/L 0.6-1.2 ZAINAB (test code = ZAINAB) Toxic Range: ? Greater than 1.2 mmol/L Lab Interpretation (test code = 43260-8) [facility] [id number] 00:00:00* Test Item Value Reference Range Interpretation Comme nts VITAMIN D, 25 OH (test code = 4958) 17 NG/ML Robert CaliCBC W/AUTO [id number] 00:00:00* Test Item Value Reference Range Interpretation [...] ABS NUCLEATED RBCS (test cod e = 59712) 0.00 K/UL Robert Arnol VirajHEMOGLOBIN [id number] 00:00:00* Test Item Value Reference Range Interpretation Comme nts HEMOGLOBIN A1c (test code = 13619) 5.5 % Robert CaliLIPID [id number] 00:00:00* Test Item Value Reference Range Interpretation Comme nts CHOLESTEROL (test code = 2210) 181 MG/DL TRIGLYCERIDES (test code = 2232) 81 MG/DL HDL CHOLESTEROL (test code = 2220) 46 MG/DL CALC LDL CHOL (test code = 2237) 117 MG/DL RISK RATIO LDL/HDL (test cod e = 2238) 2.54 RATIO Robert CaliCOMPREHENSIVE METABOLIC [id number] 00:00:00* Test Item Value Reference Range Interpretation Comme nts GLUCOSE (test code = 2217) 102 MG/DL BUN (test code = 2208) 10 MG/DL CREATININE (test code = 2214) 0.67 MG/DL eGFR AMER. (test cod e = 17126) 126 ML/MIN/1.73 eGFR NON- AMER. (test code = 14055) 108 ML/MIN/1.73 CALC BUN/CREAT (test code = [...] (test code = 2219) 18 U/L Robert [id number] 00:00:00* Test Item Value Reference Range Interpretation Comme [facility] TSH, THIRD GENERATION (test code = 2821) 1.140 UIU/ML Robert CaliVITAMIN D, 25 [id number] 00:00:00* Test Item Value Reference Range Interpretation Comme [facility] VITAMIN D, 25 OH (test code = 4958) 17 NG/ML Robert CaliCBC W/AUTO [id number] 00:00:00* Test Item Value Reference Range Interpretation [...] ABS NUCLEATED RBCS (test cod e = 07686) 0.00 K/UL Robert CaliHEMOGLOBIN [id number] 00:00:00* Test Item Value Reference Range Interpretation Comme nts HEMOGLOBIN A1c (test code = 76532) 5.5 % Robert CaliLIPID [id number] 00:00:00* Test Item Value Reference Range Interpretation Comme nts CHOLESTEROL (test code = 2210) 181 MG/DL TRIGLYCERIDES (test code = 2232) 81 MG/DL HDL CHOLESTEROL (test code = 2220) 46 MG/DL CALC LDL CHOL (test code = 2237) 117 MG/DL RISK RATIO LDL/HDL (test cod e = 2238) 2.54 RATIO Robert CaliCOMPREHENSIVE METABOLIC [id number] 00:00:00* Test Item Value Reference Range Interpretation Comme nts GLUCOSE (test code = 2217) 102 MG/DL BUN (test code = 2208) 10 MG/DL CREATININE (test code = 2214) 0.67 MG/DL eGFR AMER. (test cod e = 81643) 126 ML/MIN/1.73 eGFR NON- AMER. (test code = 32053) 108 ML/MIN/1.73 CALC BUN/CREAT (test code = [...] (test code = 2219) 18 U/L Robert [id number] 00:00:00* Test Item Value Reference Range Interpretation Comme [facility] TSH, THIRD GENERATION (test code = 2821) 1.140 UIU/ML Robert CaliVITAMIN D, 25 [id number] 00:00:00* Test Item Value Reference Range Interpretation Comme nts VITAMIN D, 25 OH (test code = 4958) 17 NG/ML Robert CaliCBC W/AUTO [id number] 00:00:00* Test Item Value Reference Range Interpretation [...] ABS NUCLEATED RBCS (test cod e = 90766) 0.00 K/UL Robert CaliHEMOGLOBIN [id number] 00:00:00* Test Item Value Reference Range Interpretation Comme nts HEMOGLOBIN A1c (test code = 26281) 5.5 % Robert CaliLIPID [id number] 00:00:00* Test Item Value Reference Range Interpretation Comme nts CHOLESTEROL (test code = 2210) 181 MG/DL TRIGLYCERIDES (test code = 2232) 81 MG/DL HDL CHOLESTEROL (test code = 2220) 46 MG/DL CALC LDL CHOL (test code = 2237) 117 MG/DL RISK RATIO LDL/HDL (test cod e = 2238) 2.54 RATIO Robert CaliCOMPREHENSIVE METABOLIC [id number] 00:00:00* Test Item Value Reference Range Interpretation Comme nts GLUCOSE (test code = 2217) 102 MG/DL BUN (test code = 2208) 10 MG/DL CREATININE (test code = 2214) 0.67 MG/DL eGFR AMER. (test cod e = 17868) 126 ML/MIN/1.73 eGFR NON- AMER. (test code = 89669) 108 ML/MIN/1.73 CALC BUN/CREAT (test code = [...] (test code = 2218) 18 U/L Robert [id number] 00:00:00* Test Item Value Reference Range Interpretation Comme [facility] TSH, THIRD GENERATION (test code = 2821) 1.140 UIU/ML Robert Ambrose VirajVITAMIN D, 25 [id number] 00:00:00* Test Item Value Reference Range Interpretation Comme [facility] VITAMIN D, 25 OH (test code = 4958) 17 NG/ML Robert Ambrose VirajCBC W/AUTO [id number] 00:00:00* Test Item Value Reference Range Interpretation [...] ABS NUCLEATED RBCS (test cod e = 05202) 0.00 K/UL Robert CaliHEMOGLOBIN [id number] 00:00:00* Test Item Value Reference Range Interpretation Comme nts HEMOGLOBIN A1c (test code = 82781) 5.5 % Robert CaliLIPID [id number] 00:00:00* Test Item Value Reference Range Interpretation Comme nts CHOLESTEROL (test code = 2210) 181 MG/DL TRIGLYCERIDES (test code = 2232) 81 MG/DL HDL CHOLESTEROL (test code = 2220) 46 MG/DL CALC LDL CHOL (test code = 2237) 117 MG/DL RISK RATIO LDL/HDL (test cod e = 2238) 2.54 RATIO Robert CaliCOMPREHENSIVE METABOLIC [id number] 00:00:00* Test Item Value Reference Range Interpretation Comme nts GLUCOSE (test code = 2217) 102 MG/DL BUN (test code = 2208) 10 MG/DL CREATININE (test code = 2214) 0.67 MG/DL eGFR AMER. (test cod e = 00364) 126 ML/MIN/1.73 eGFR NON- AMER. (test code = 19606) 108 ML/MIN/1.73 CALC BUN/CREAT (test code = [...] (test code = 2219) 18 U/L Robert [id number] 00:00:00* Test Item Value Reference Range Interpretation Comme [facility] TSH, THIRD GENERATION (test code = 2821) 1.140 UIU/ML Robert CaliVITAMIN D, 25 [id number] 00:00:00* Test Item Value Reference Range Interpretation Comme [facility] VITAMIN D, 25 OH (test code = 4958) 17 NG/ML Robert CaliCBC W/AUTO [id number] 00:00:00* Test Item Value Reference Range Interpretation [...] ABS NUCLEATED RBCS (test cod e = 92785) 0.00 K/UL Robert CaliHEMOGLOBIN [id number] 00:00:00* Test Item Value Reference Range Interpretation Comme evelia HEMOGLOBIN A1c (test code = 55177) 5.5 % Robert CaliLIPID [id number] 00:00:00* Test Item Value Reference Range Interpretation Comme nts CHOLESTEROL (test code = 2210) 181 MG/DL TRIGLYCERIDES (test code = 2232) 81 MG/DL HDL CHOLESTEROL (test code = 2220) 46 MG/DL CALC LDL CHOL (test code = 2237) 117 MG/DL RISK RATIO LDL/HDL (test cod e = 2238) 2.54 RATIO Robert CaliCOMPREHENSIVE METABOLIC [id number] 00:00:00* Test Item Value Reference Range Interpretation Comme nts GLUCOSE (test code = 2217) 102 MG/DL BUN (test code = 2208) 10 MG/DL CREATININE (test code = 2214) 0.67 MG/DL eGFR AMER. (test cod e = 43905) 126 ML/MIN/1.73 eGFR NON- AMER. (test code = 27135) 108 ML/MIN/1.73 CALC BUN/CREAT (test code = [...] (test code = 2219) 18 U/L Robert [id number] 00:00:00* Test Item Value Reference Range Interpretation Comme nts TSH, THIRD GENERATION (test code = 2821) 1.140 UIU/ML Robert CaliVITAMIN D, 25 [id number] 00:00:00* Test Item Value Reference Range Interpretation Comme nts VITAMIN D, 25 OH (test code = 4958) 17 NG/ML Robert CaliCBC W/AUTO [id number] 00:00:00* Test Item Value Reference Range Interpretation [...] ABS NUCLEATED RBCS (test cod e = 42507) 0.00 K/UL Robert CaliHEMOGLOBIN [id number] 00:00:00* Test Item Value Reference Range Interpretation Comme nts HEMOGLOBIN A1c (test code = 16435) 5.5 % Robert CaliLIPID [id number] 00:00:00* Test Item Value Reference Range Interpretation Comme nts CHOLESTEROL (test code = 2210) 181 MG/DL TRIGLYCERIDES (test code = 2232) 81 MG/DL HDL CHOLESTEROL (test code = 2220) 46 MG/DL CALC LDL CHOL (test code = 2237) 117 MG/DL RISK RATIO LDL/HDL (test cod e = 2238) 2.54 RATIO Robert CaliCOMPREHENSIVE METABOLIC [id number] 00:00:00* Test Item Value Reference Range Interpretation Comme nts GLUCOSE (test code = 2217) 102 MG/DL BUN (test code = 2208) 10 MG/DL CREATININE (test code = 2214) 0.67 MG/DL eGFR AMER. (test cod e = 97588) 126 ML/MIN/1.73 eGFR NON- AMER. (test code = 18163) 108 ML/MIN/1.73 CALC BUN/CREAT (test code = [...] (test code = 2219) 18 U/L Robert [id number] 00:00:00* Test Item Value Reference Range Interpretation [...] mg/dL VERY HIGH.........>/= 190 mg/dL Comments to [employer]: ADD TO AM LABSLIPID PROFILE (CORONARY RISK)2018-07-20 [...] code = LDL) MG/DL 0-99 Comments to [employer]: ADD TO AM LABSPROTHROMBIN [id number] 06:24:00* Test Item Value Reference Range Interpretation [...] systemic embolism. 3.0 - 4.5 Comments to [employer]: NURSE WILL BRING SPECIMEN TO LABPTT ACTIVATED 2018-07-20 06:24:00* Test Item Value Reference Range Interpretation Comme nts PTT ACTIVATED (test code = APTT) 29.3 SECONDS 22.0-33.0 N Comments to [employer]: NURSE WILL BRING SPECIMEN TO LABBASIC METABOLIC [...] CA) 9.6 MG/DL 8.4-10.2 N Comments to [employer]: NURSE WILL BRING SPECIMEN TO LAB Comments to [employer]: NURSE WILL BRING SPECIMEN TO [id number] 06:13:00* Test Item Value Reference Range Interpretation Comme nts MAGNESIUM (test code = MAG) 2.2 MG/DL 1.6-2.3 N Comments to [employer]: NURSE WILL BRING SPECIMEN TO LAB Comments to [employer]: NURSE WILL BRING SPECIMEN TO LABCBC W/AUTO [id number] 06:02:00 * Test Item Value Reference Range [...]
[2024-03-23 18:14] LABS: SARS-CoV-2 Antigen CONTROL BLUE LINE VIS/BG OK; SARS-CoV-2 Antigen Rapid Res Negative (Negative)
--- NOTE | 2024-03-23 19:22 | EDPHYS ---
Physician Documentation [facility] Name: Shivani Lagunas Age: 48 yrs Sex: Female : 1975 Arrival Date: 03/23/2024 Time: 17:16 Bed IW2 Private MD: ED Physician Jean Carlos Andrews HPI: 03/23 17:45 This 48 yrs old Female presents to ER via Ambulatory with complaints of Flu cp Symptoms. 17:45 The patient presents with sore throat. cp 17:45 The patient describes throat pain as burning. cp 17:45 Onset: The symptoms/episode began/occurred this morning. Severity of symptoms: in the cp emergency department the symptoms are unchanged, despite home interventions. Associated signs and symptoms: Pertinent positives: nasal burning, Pertinent negatives cough, diarrhea, fever, vomiting. Patient reports being in close contact with someone who has the flu and Covid. 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 - Social history:: Smoking status: Patient denies any tobacco usage or history of. ROS: 17:50 Constitutional: Negative for body aches, chills, fever, poor PO intake, cp 17:50 Eyes: Negative for injury, pain, redness, and discharge, cp 17:50 ENT: Positive for sore throat, Negative for drainage from ear(s), ear pain, difficulty swallowing, difficulty handling secretions, 17:50 Cardiovascular: Negative for chest pain, 17:50 Respiratory: Negative for cough, shortness of breath, wheezing, 17:50 Abdomen/GI: Negative for abdominal pain, vomiting, diarrhea, constipation, 17:50 Neuro: Negative for altered mental status, headache, 17:50 All other systems are negative, Exam: 17:55 Constitutional: The patient appears in no acute distress, alert, awake, non-toxic, well cp developed, well nourished, 17:55 Head/Face: Normocephalic, atraumatic. cp 17:55 Eyes: Periorbital structures: appear normal, Conjunctiva: normal, no exudate, no injection, Sclera: no appreciated abnormality, Lids and lashes: appear normal, bilaterally, 17:55 ENT: External ear(s): are unremarkable, Nose: is normal, Mouth: Lips: moist, Oral mucosa: moist, Posterior pharynx: Airway: no evidence of obstruction, patent, Tonsils: no enlargement, no exudate, erythema, that is mild, exudate, is not appreciated, Voice: is normal, 17:55 Neck: ROM/movement: Meningeal signs: are not present, Lymph nodes: no appreciated lymphadenopathy, 17:55 Chest/axilla: Inspection: normal, 17:55 Cardiovascular: Rate: normal, Rhythm: regular, 17:55 Respiratory: the patient does not display signs of respiratory distress, Respirations: normal, no use of accessory muscles, no retractions, labored breathing, is not present, Breath sounds: are clear throughout, no decreased breath sounds, no stridor, no wheezing, 17:55 Abdomen/GI: Exam negative for discomfort, distension, guarding, Inspection: abdomen appears normal, Vital Signs: 17:42 BP 131 / 71; Pulse 63; Resp 15; Temp 97.3(O); Pulse Ox 100% on R/A; Weight 97.52 kg; ss Height 5 ft. 6 in. ; Pain 0/10; 17:42 Body Mass Index 34.70 (97.52 kg, 167.64 cm) ss 17:42 Pain Scale: Adult ss MDM: 17:42 Medical Screening Exam initiated cp 18:00 Differential diagnosis: group A strep tonsillitis, influenza, peritonsillar abscess cp tonsillitis, upper respiratory infection, uvulitis. 19:21 Data reviewed: vital signs, nurses notes, lab test result(s), and as a result, I will cp discharge patient. 19:21 Counseling: I had a detailed discussion with the patient and/or guardian regarding the cp historical points, exam findings, and any diagnostic results supporting the discharge/admit diagnosis, lab results, to return to the emergency department if symptoms worsen or persist or if there are any questions or concerns that arise at home. 03/23 17:46 Order name: Strep; Complete Time: 19:20 cp 03/23 19:20 Interpretation: Reviewed. 03/23 17:46 Order name: SARS RAPID; Complete Time: 19:20 03/23 17:46 Order name: Influenza Screen (a \T\ B); Complete Time: 19:20 cp 03/23 18:17 Order name: Throat Culture EDMS Administered Medications: No medications were administered Disposition: 03/24 09:42 Co-signature as Attending Physician, Jean Carlos Andrews MD I reviewed the patient's care rn provided by the Advanced Practice Provider and agree with the diagnosis and treatment plan. Disposition Summary: 03/23/24 19:21 Discharge Ordered Notes: Location: Home cp Problem: new cp Symptoms: are unchanged cp Condition: Stable cp Diagnosis - Acute pharyngitis, unspecified cp Followup: cp - With: Private Physician - When: 2 - 3 days - Reason: Worsening of condition Discharge Instructions: - Discharge Summary Sheet cp - Pharyngitis cp - Sore Throat cp Forms: - Medication Reconciliation Form cp - Antibiotic Education cp - Prescription Opioid Use cp - Patient Portal Instructions cp - Leadership Thank You Letter cp Signatures: Dispatcher [employer] EDND Jean Carlos Andrews MD MD rn Blanchard, Shelby, RN RN ss Page, Corey, PA PA cp Corrections: (The following items were deleted from the chart) 03/23 17:46 17:46 Group A Streptococcus Rapid Sc+BA.LAB.BRZ ordered. EDND EDND 17:46 17:46 SARS-COV-2 Antigen Rapid+I.LAB.BRZ ordered. EDND EDND 17:46 17:46 Influenza Screen (A \T\ B)+BA.LAB.BRZ ordered. EDND EDND 03/24 17:49 03/23 17:45 The patient presents with sore throat, cp cp
--- NOTE | 2024-03-23 19:22 | ER ---
Nurse's Notes [facility] Name: Shivani Lagunas Age: 48 yrs Sex: Female : 1975 Arrival Date: 03/23/2024 Time: 17:16 Bed IW2 Private MD: Diagnosis: Acute pharyngitis, unspecified Presentation: 03/23 17:43 Chief complaint: Patient states: burning in nose and throat that began this morning. ss Coronavirus screen: Client denies travel out of the [place] in the last 14 days. Ebola Screen: Patient denies exposure to infectious person. Patient denies travel to an Ebola-affected area in the 21 days before illness onset. Initial Sepsis Screen: Does the patient meet any 2 criteria? No. Patient's initial sepsis screen is negative. Does the patient have a suspected source of infection? No. Patient's initial sepsis screen is negative. Risk Assessment: Do you want to hurt yourself or someone else? Patient reports no desire to harm self or others. Onset of symptoms was March 23, 2024. 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 - Social history:: Smoking status: Patient denies any tobacco usage or history of. Screenin:44 Abuse screen: Denies threats or abuse. Denies injuries from another. Nutritional ss screening: No deficits noted. Tuberculosis screening: Never had TB. Assessment: 20:53 Reassessment: Pt left prior to being discharged by staff. jb4 Vital Signs: 17:42 BP 131 / 71; Pulse 63; Resp 15; Temp 97.3(O); Pulse Ox 100% on R/A; Weight 97.52 kg; ss Height 5 ft. 6 in. ; Pain 0/10; 17:42 Body Mass Index 34.70 (97.52 kg, 167.64 cm) ss 17:42 Pain Scale: Adult ED Course: 17:20 Patient arrived in ED. im 17:23 Bal Sagastume PA is PHCP. cp 17:23 Jean Carlos Andrews MD is Attending Physician. cp 17:42 Arm band placed on right wrist. ss 17:43 Triage completed. ss 17:44 Patient has correct armband on for positive identification. ss Administered Medications: No medications were administered Outcome: 19:21 Discharge ordered by MD. cp 20:52 Discharged to home jb4 20:52 Condition: stable 20:52 Discharge instructions given to pt left prior to receiving discharge instructions. 20:53 Patient left the ED. jb4 Signatures: Yvonne Walker, RN RN ss Bal Sagastume PA PA Antony Aiken, RN RN jb4 Rohini Garcia im
[2024-03-23 20:59] VITALS: BP 131/71; TEMP 97.3; O2SAT 100
== END 2024-03-23 20:53 | disposition home or self-care (01) ==
LOC: ER 17:16
DX: J02.9 Acute pharyngitis, unspecified (principal); Z11.52 Encounter for screening for COVID-19
CPT/HCPCS: 36415; 87070; 87081; 87804; 87811; 99282

== ENCOUNTER 2024-04-17 10:30 | Emergency (ER) | payer OTHER ==
--- OUTSIDE RECORDS SUMMARY | 2024-04-17 10:55 | XMS REPORT | Continuity of Care Document ---
Author Name Unknown Address [address] [place] [address] [facility] Address [address] [place] [address] Care Team Providers Care Plaster Whittler Name Role Phone Reji Montiel, [facility] Primary Care Physician Jae Holloway Attending Clinician Unavailable DAVIDSON SUTHERLAND Attending Clinician Unavailable Doctor Unassigned, [place] Attending Clinician U Tavon Ruth MD Attending Clinician [phone] ALESHA CROWE Attending Clinician Unavailable Consuelo BAUER, Elidia Gamble Attending Clinician [phone] Dominic Keita MD Attending Clinician [phone] Jose Westbrook MD Attending Clinician [phone] JOSE WESTBROOK Attending Clinician Unavailable FARZANA SAUCEDA Attending Clinician Unavailable MARYSOL PABON Attending Clinician Unavailable SIDNEY PABONJaydenJUNIOR Attending Clinician Unavailable Stan PATEL, SidneyJaydenJunior Attending Clinician [phone] Rhiannon Vizcarra MD Attending Clinician + [phone] Dominic Keita MD Attending Clinician + [phone] Consuelo BAUER, Elidia Gamble Attending Clinician +[phone] EMILIA SNOWDEN Attending Clinician Annia vailable Doctor Unassigned, [place] Attending Clinician U SARA Day Attending Clinician UnavailSARA Dorado Attending Clinician UnavailJewel Forbes MD Attending Clinician + [phone] [facility] Attending Clinician Unavailable JEWEL CUNHA Attending Clinician Unavaila JENNY Norton Attending Clinician Unavailable JENNY ARRIAGA Attending Clinician Unavailable Self Dexter BAUER Attending Clinician [phone] Davidson Sutherland MD Attending Clinician + [phone] [facility] Attending Clinician Unavailable DEXTER DIAS Attending Clinician Unavailable GC_GCBZW_Kadiyala_S Attending Clinician Unavaila ONEIDA Del Rosario Attending Clinician Unavailable DOMINIC KEITA Attending Clinician UnavailHunter Sahni MD Attending Clinician + [phone] Ting Grissom MD Attending Clinician [phone] RADIOLOGY Attending Clinician Unavailable DORA NEWMAN Attending Clinician Unavailable Deloris HOLLOWAY, Dora Pope Attending Clinician + [phone] Kath Vences MD Attending Clinician + [phone] P[facility], [facility] Attending Clinician UnavailKATH Grady Attending Clinician Unavailchris russell Pathology Attending Clinician Unavailable IGOR SAAVEDRA Attending Clinician Unavaila HILARY Ramires Attending Clinician UnavailHILARY Conrad Attending Clinician UnavailIgor pfeiffer Rai, MD Attending Clinician Unava ilGIGI Juarez Attending Clinician Unavailable Gigi Monroy DO Attending Clinician [phone] Zane Martinez MD Attending Clinician [phone] Marycruz VAZQUEZ, Deonte Attending Clinician Unavailable UNKNOWN, ATTENDING Attending Clinician UnavailSALLY Lara Attending Clinician Unavail able SALLY MITCHELL Attending Clinician Unavail able Salbador Lockwood MD Attending Clinician [phone] SALBADOR LOCKWOOD Attending Clinician Unavailable HALIMA CONNOR Attending Clinician Unavailab Halima Choi DO Attending Clinician [phone] ROBERT NOWAK Attending Clinician Unavail able Patti Hutton Attending Clinician CRISTO MARTINEZ Attending Clinician Unavail able JEWEL MORAES Attending Clinician UnaKATH Sen Attending Clinician Unav ANGELA Richardson Attending Clinician Unavailab RHIANNON Durant Admitting Clinician Unavailable GC_GCBZW_Kadiyala_S Admitting Clinician Unavaila DOMINIC Watts Admitting Clinician Unavailabl yvonne Keita MD, Dominic Admitting Clinician [phone] Payers Payer Name Policy Type Policy Number Effective Date Expirati on Date Source HIM [facility] [id number] 2023 00:00:00 [facility] [employer] [id number] 2022 00:00:00 MEDICAID SSI PENDING PENDING 2021 00:00:00 Problems Condition Name Condition Details Condition Category Status Onset Date Resolution Date Last Treatment Date Treating Clinician Comments Source Vitamin D deficiency Vitamin D Deficiency Problem Active 04-03 00:00: 00 [facility] Menometror rhagia Menometror rhagia Problem Active 04-03 00:00: 00 [facility] Fatigue Fatigue Problem Active 04-03 00:00: 00 [facility] Dysuria Dysuria Problem Active 04-03 00:00: 00 [facility] Reduced libido Reduced Libido Problem Active 04-03 00:00: 00 [facility] Obese class I Obese Class I Problem Active - 00:00: 00 [facility] Excessive menstruati on with irregular cycle Excessive Menstruati on with Irregular Cycle Problem Active 2025-0 1-24 00:00: 00 [facility] Stenosis of cervix Stenosis of Cervix Problem Active 1-20 00:00: 00 [facility] Atrial fibrillati on [...] blood loss Disease Active 10-19 00:00: 00 [facility] Gastroesop hageal reflux disease, unspecifie d whether esophagiti s present Gastroesop hageal reflux disease, unspecifie d whether esophagiti s present Disease Active 10-19 00:00: 00 [facility] Arrhythmia Arrhythmia Disease Active 10-18 00:00: 00 [facility] Anemia Anemia Disease Active 02-17 00:00: 00 [facility] Bipolar 1 disorder, depressed Bipolar 1 disorder, depressed Disease Active 2019-02 00:00: 00 [facility] Gout Gout Disease Active 08-17 00:00: 00 [facility] Severe headache Severe headache Disease Active 1998-02 00:00: 00 [facility] Insomnia disorder Insomnia disorder Disease Active 1989-02 0 00:00: 00 [facility] Anxiety Anxiety Disease Active 10-18 00:00: 00 [facility] No known active problems No known active problems Disease [facility] Constipate d Constipate d Problem [facility] Imaging of brain abnormal Abnormal brain scan Problem [facility] Seizure Seizure Problem [facility] Chronic intractabl e migraine without aura Chronic migraine without aura, intractabl e, without status migrainosu s Problem [facility] Skin sensation disturbanc e Facial tingling sensation Problem [facility] Magnetic resonance imaging of brain abnormal White matter abnormalit y on MRI of brain Problem [facility] Disorder of autonomic nervous system Autonomic dysfunctio n Problem [facility] Benign intracrani al hypertensi on Elevated intracrani al pressure Problem [facility] Myoclonus Myoclonic jerking Problem [facility] Cervical dystonia Cervical dystonia Problem [facility] Carpal tunnel syndrome Carpal tunnel syndrome, bilateral upper limbs Problem [facility] Peripheral neuropathy Peripheral neuropathy Problem [facility] Allergies, Adverse Reactions, Alerts Allergy [...] reaction s Active Hives 4-24 00:00: 00 [facility] SULFA (SULFONA MIDE ANTIBIOT ICS) Drug Class Active Hives 4-24 00:00: 00 [facility] Substanc e with sulfonam chelo structur e and antibact erial mechanis m of action (substan ce) Substanc e with sulfonam chelo structur e and antibact erial mechanis m of action (substan ce) Active Unknown [facility] SULFA (SULFONA MIDE ANTIBIOT ICS) Allergy to substanc e Active [facility] Social History Social Habit Start Date Stop Date Quantity Comments Source [facility] History of Tobacco Use [facility] History of Social function 2023-09-03 00:00:00 2023-09-03 00:00:00 [facility] Exposure to SARS-CoV-2 (event) 2022-02-05 00:00:00 2022-02-15 08:57:00 Not sure [facility] Tobacco use and exposure 2021-08-24 00:00:00 2021-08-24 00:00:00 Smokeless tobacco non-user [facility] Smoking Status Start Date Stop Date Source Never Smoker [facility] Medications Ordered Medication Name Filled Medication Name Start Date Stop Date Current Medication? Ordering Clinician Indication Dosage Frequency Signature (SIG) Comments Components Source LAMOTRIGINE 25 mg tablet 04-11 00:00: 00 Yes [id number] TAKE 1 TABLET BY MOUTH DAILY FOR 14 DAYS THEN 2 TABLETS DAILY [facility] Venofer 200 mg iron/10 mL intravenous solution 04-02 00:00: 00 Yes 10mg iron/10 mL [facility] pregabalin 75 mg capsule 03-27 00:00: 00 Yes 1mg [facility] clonazePAM 1 mg tablet 03-21 00:00: 00 Yes [id number] 1mg Take 1 tablet by mouth as needed for Other (panic). [facility] DULoxetine 60 mg capsule 03-21 00:00: 00 Yes [id number] 60mg Take 1 capsule by mouth in the morning and 1 capsule in the evening. [facility] lithium carbonate CR 450 mg SR tablet 03-21 00:00: 00 Yes [id number] 900mg Take 2 tablets by mouth at bedtime. [facility] busPIRone 30 mg tablet 03-21 00:00: 00 Yes [id number] 30mg Take 1 tablet by mouth in the morning and 1 tablet in the evening. [facility] pregabalin 75 mg capsule 2- 00:00: 00 Yes 1mg [facility] lamoTRIgine 25 mg tablet 03-14 00:00: 00 04-11 00:00 :00 No [id number] Take 1 tablet by mouth daily for 14 days, THEN 2 tablets daily for 14 days. [facility] Amantadine HCl 100 MG Amantadine HCl 100 MG 1- 00:00: 00 No 1{capsu le} QD Amantadine HCl 100 MG busPIRone 30 mg tablet 2023-02 00:00: 00 03-19 00:00 :00 No [id number] 30mg Take 1 tablet by mouth in the morning and 1 tablet in the evening. [facility] DULoxetine 60 mg capsule 2023-02 00:00: 00 03-19 00:00 :00 No [id number] 60mg Take 1 capsule by mouth in the morning and 1 capsule in the evening. [facility] Venofer 200 mg iron/10 mL intravenous solution 2023-02 00:00: 00 Yes 10mg iron/10 mL [facility] Venofer 200 mg iron/10 mL intravenous solution 2023-02 00:00: 00 Yes 10mg iron/10 mL [facility] traZODone 50 mg tablet 2023-02 00:00: 00 Yes [id number] Take 1-2 tablets daily at bedtime for sleep [facility] clonazePAM 1 mg tablet 2023-02 00:00: 00 03-16 00:00 :00 No [id number] TAKE 1/2 TO 1 TABLET BY MOUTH ONCE DAILY NEEDED FOR SEVERE ANXIETY [facility] traZODone 50 mg tablet 2023-02 00:00: 00 01-27 00:00 :00 No [id number] Take 1-2 tablets for sleep [facility] Cyclobenzap rine HCl 10 MG Cyclobenzap rine HCl 10 MG 2023-02 00:00: 00 No 1{table t_at_be dtime_a s_neede d} QD Cyclobenza amber HCl 10 MG Venofer 200 mg iron/10 mL intravenous solution 2023-02 00:00: 00 Yes 10mg iron/10 mL [facility] busPIRone 30 mg tablet 2023-02 00:00: 00 02-11 00:00 :00 No [id number] TAKE 1 TABLET BY MOUTH EVERY MORNING AND TAKE ONE TABLET BY MOUTH EVERY EVENING [facility] DULoxetine 60 mg capsule 2023-02 00:00: 00 02-11 00:00 :00 No [id number] TAKE 1 CAPSULE BY MOUTH 2 TIMES A DAY ( EVERY MORNING AND EVERY EVENING ) [facility] ibuprofen 800 mg tablet 2023-02 00:00: 00 Yes 1mg [facility] Methocarbam ol 500 MG Methocarbam ol 500 MG 2023-0218 00:00: 00 No 1.5{tab lets} BID Methocarba mol 500 MG Botox 200 UNIT Botox 200 UNIT 2023-02- 00:00: 00 No Botox 200 UNIT ibuprofen 800 mg tablet 2023-02 00:00: 00 Yes 1mg [facility] TRAZODONE 50 mg tablet 2023-02 00:00: 00 01-20 00:00 :00 No [id number] TAKE 1 AND 1/2 TABLET BY MOUTH AT BEDTIME [facility] Vitamin D3 25 mcg (1,000 unit) tablet 2023-02 00:00: 00 Yes 1(1,000 unit) [facility] diclofenac sodium 75 mg tablet,mikal yed release 2023-02 00:00: 00 Yes 1mg [facility] lithium carbonate CR 450 mg SR tablet 2023-02 0 00:00: 00 03-19 00:00 :00 No [id number] TAKE TWO TABLETS BY MOUTH AT BEDTIME [facility] LAMOTRIGINE 100 mg tablet 11-09 00:00: 00 03-14 00:00 :00 No [id number] TAKE 1 TABLET BY MOUTH 2 TIMES A DAY (MORNING AND EVENING ) TELL DOCTOR IF YOU MISSED 4 OR MORE DAYS OF THIS MEDICATION , WILL NEED TO START AT LOWER DOSE [facility] clonazePAM 1 mg tablet 11-09 00:00: 00 01-24 00:00 :00 No [id number] TAKE 1/2 TO 1 TABLET BY MOUTH ONCE DAILY NEEDED FOR SEVERE ANXIETY [facility] lithium carbonate CR 450 mg SR tablet 10-16 00:00: 00 11-14 00:00 :00 No [id number] 900mg Take 2 tablets by mouth at bedtime. [facility] traZODone 50 mg tablet 8-07 00:00: 00 12-10 00:00 :00 No [id number] 75mg Take 1.5 tablets by mouth at bedtime for 90 days. [facility] busPIRone 30 mg tablet 09-02 00:00: 00 01-07 00:00 :00 No [id number] 30mg Take 1 tablet by mouth in the morning and 1 tablet in the evening. [facility] DULoxetine 60 mg capsule 09-02 00:00: 00 01-07 00:00 :00 No [id number] 60mg Take 1 capsule by mouth in the morning and 1 capsule in the evening. Follow up for refills [facility] clonazePAM (KLONOPIN) 1 mg tablet 09-02 00:00: 00 11-09 00:00 :00 No [id number] 1mg Take 1 tablet by mouth once daily as needed for Other (severe anxiety). Take 0.5mg to 1mg as needed for severe anxiety [facility] traZODone 50 mg tablet 08-27 00:00: 00 09-18 00:00 :00 No [id number] 50mg Take 1 tablet by mouth at bedtime. May cut tablet in half. Follow up for refills [facility] busPIRone 10 mg tablet 08-27 00:00: 00 09-02 00:00 :00 No [id number] 20mg Take 2 tablets by mouth in the morning and 2 tablets in the evening. Follow up for refills [facility] ferric derisomalto se (MONOFERRIC ) 100 mg iron/mL Soln 08-07 00:00: 00 08-08 04:59 :00 No [id number] 500mg Inject 500 mg intravenou sly once now for 1 dose. [facility] clonazePAM 1 mg tablet 08-01 00:00: 00 09-02 00:00 :00 No [id number] Take half to 1 tablet by mouth once daily as needed for extreme anxiety. Attempt to minimize use. Follow-up for continued refills. [facility] lithium carbonate CR 450 mg SR tablet 07-30 00:00: 00 10-16 00:00 :00 No [id number] 900mg Take 2 tablets by mouth at bedtime. [facility] omeprazole 40 mg capsule 07-25 00:00: 00 07-21 04:59 :00 No [id number] 40mg Take 1 capsule by mouth in the morning and 1 capsule in the evening. Take with meals. Do all this for 360 days. [facility] sucralfate 1 gram tablet 07-25 00:00: 00 10-24 04:59 :00 No [id number] 1g Take 1 tablet by mouth before meals and at bedtime for 90 days. [facility] traZODone 50 mg tablet 07-18 00:00: 00 08-26 00:00 :00 No [id number] 50mg Take 1 tablet by mouth at bedtime. May cut tablet in half. Follow up for refills [facility] DULoxetine 60 mg capsule 06-21 00:00: 00 09-02 00:00 :00 No [id number] 60mg Take 1 capsule by mouth in the morning and 1 capsule in the evening. Follow up for refills [facility] busPIRone 10 mg tablet 06-21 00:00: 00 08-27 00:00 :00 No [id number] 20mg Take 2 tablets by mouth in the morning and 2 tablets in the evening. Follow up for refills [facility] traZODone 50 mg tablet 06-21 00:00: 00 07-18 00:00 :00 No [id number] 50mg Take 1 tablet by mouth at bedtime. May cut tablet in half. Follow up for refills [facility] clonazePAM 1 mg tablet 06-12 00:00: 00 07-30 00:00 :00 No [id number] Take half to 1 tablet by mouth once daily as needed for extreme anxiety. Attempt to minimize use. Follow-up for continued refills. [facility] iopamidol (ISOVUE 370-500 mL) injection 80 mL 06-07 02:57: 00 06-07 02:45 :00 No [id number] 80mL 80 mL, Intravenou s, ONCE, 1 dose, On Sun06/07/23 at 2200, Routine [facility] NaCl 0.9% (NS) injection 5 mL 06-07 02:36: 00 Yes 5mL 5 mL, Slow IV Push, PRN - SEE INSTRUCTIO NS, Starting on Sun06/07/23 at 2136, Until Discontinu ed, 10 mL [facility] traZODone 50 mg tablet 05-22 00:00: 00 06-21 00:00 :00 No [id number] 50mg Take 1 tablet by mouth at bedtime. May cut tablet in half. [facility] DULoxetine 60 mg capsule 05-22 00:00: 00 06-21 00:00 :00 No [id number] 60mg Take 1 capsule by mouth in the morning and 1 capsule in the evening. [facility] busPIRone 10 mg tablet 05-07 00:00: 00 06-21 00:00 :00 No [id number] 20mg Take 2 tablets by mouth in the morning and 2 tablets in the evening. [facility] traZODone 50 mg tablet 04-24 00:00: 00 05-22 00:00 :00 No [id number] 50mg Take 1 tablet by mouth at bedtime. May cut tablet in half. [facility] DULoxetine 60 mg capsule 04-24 00:00: 00 05-22 00:00 :00 No [id number] 60mg Take 1 capsule by mouth in the morning and 1 capsule in the evening. [facility] DULoxetine 60 mg capsule -24 00:00: 00 04-23 00:00 :00 No [id number] 60mg Take 1 capsule by mouth in the morning and 1 capsule in the evening. [facility] Ubrelvy 100 MG Ubrelvy 100 MG 1-13 00:00: 00 No Ubrelvy 100 MG losartan potassium (LOSARTAN ORAL) 02-15 09:55: 13 Yes 20mg Take 20 mg by mouth. [facility] propranolol 80 mg tablet 02-15 09:55: 13 Yes 80mg Take 1 tablet by mouth in the morning and 1 tablet in the evening. [facility] allopurinoL 100 mg tablet 02-15 09:55: 13 Yes 100mg Take 1 tablet by mouth in the morning. [facility] lithium carbonate CR 450 mg SR tablet 2022-02 00:00: 00 07-29 00:00 :00 No [id number] 900mg Take 2 tablets by mouth at bedtime. [facility] clonazePAM 1 mg tablet 2022-02 00:00: 00 06-11 00:00 :00 No [id number] Take half to 1 tablet by mouth once daily as needed for extreme anxiety. Attempt to minimize use. [facility] busPIRone 10 mg tablet 2022-02 00:00: 00 05-07 00:00 :00 No [id number] 20mg Take 2 tablets by mouth in the morning and 2 tablets in the evening. [facility] traZODone 50 mg tablet 2022-02 00:00: 00 04-22 00:00 :00 No [id number] 50mg Take 1 tablet by mouth at bedtime. May cut tablet in half. [facility] DULoxetine 60 mg capsule 2022-02 00:00: 00 03-07 00:00 :00 No [id number] 60mg Take 1 capsule by mouth in the morning and 1 capsule in the evening. [facility] TAKE 1 TABLET EVERY 4 HOURS NEEDED. 2022-02 00:00: 00 06-12 00:00 :00 No 10 [facility] busPIRone 15 mg tablet 2022-02 00:00: 00 01-22 00:00 :00 No [id number] 15mg Take 1 tablet by mouth in the morning and 1 tablet in the evening. [facility] lithium carbonate CR 450 mg SR tablet 2022-02 00:00: 00 01-22 00:00 :00 No [id number] 900mg Take 2 tablets by mouth at bedtime. [facility] traZODone 50 mg tablet 2022-02 00:00: 00 01-22 00:00 :00 No [id number] 50mg Take 1 tablet by mouth at bedtime. May cut tablet in half. [facility] DULoxetine 60 mg capsule 2022-02 00:00: 01-22 00:00 :00 No [id number] 60mg Take 1 capsule by mouth in the morning and 1 capsule in the evening. [facility] clonazePAM 1 mg tablet 2022-02 00:00: 00 01-22 00:00 :00 No [id number] Take 1 tablet by mouth once daily as needed for extreme anxiety. Attempt to minimize use. [facility] busPIRone 15 mg tablet 2022-02 00:00: 00 12-20 00:00 :00 No [id number] 15mg Take 1 tablet by mouth in the morning and 1 tablet in the evening. [facility] lithium carbonate CR 450 mg SR tablet 2022-02 00:00: 00 12-20 00:00 :00 No [id number] 900mg Take 2 tablets by mouth at bedtime. [facility] traZODone 50 mg tablet 2022-02 00:00: 12-20 00:00 :00 No [id number] 50mg Take 1 tablet by mouth at bedtime. May cut tablet in half. [facility] TAKE 2 TABLETS ONCE A DAY BY MOUTH 2022-02 00:00: 00 06-12 00:00 :00 No 200 [facility] DULoxetine 60 mg capsule 2022-02 00:00: 00 12-20 00:00 :00 No [id number] 60mg Take 1 capsule by mouth in the morning and 1 capsule in the evening. [facility] simethicone (GAS RELIEF (SIMETHICON E)) 40 mg/0.6 mL drops 2022-02 0 13:19: 00 11-13 16:49 :02 No PRN, Starting on Sun11/13/22 at 0819, Until Sun11/13/22 at 1149, Routine, Intra-op [facility] losartan potassium (LOSARTAN ORAL) 2022-02 09:49: 01 Yes 20mg Take 20 mg by mouth. [facility] propranolol 80 mg tablet 2022-02 09:49: 01 Yes 80mg Take 1 tablet by mouth in the morning and 1 tablet in the evening. [facility] allopurinoL 100 mg tablet 2022-02 09:49: 01 Yes 100mg Take 1 tablet by mouth in the morning. [facility] sucralfate 1 gram tablet 2022-02 00:00: 00 12-14 04:59 :00 No 1g Take 1 tablet by mouth in the morning and 1 tablet in the evening. Do all this for 30 days. [facility] ketorolac (TORADOL) injection 30 mg 11-03 17:00: 00 11-03 16:25 :00 No 30mg 30 mg, Slow IV Push, ONCE, 1 dose, On Sun11/03/22 at 1200, Routine [facility] NaCl 0.9% (NS) bolus infusion 500 mL 11-03 16:45: 00 11-03 18:14 :00 No 500mL at 999 mL/hr, 500 mL, IV Infusion, ONCE, 1 dose, On Sun11/03/22 at 1145, SKYLAR [facility] butalbital- acetaminoph en-caff (ESGIC) 50-325-40 mg tablet 1 tablet 11-03 16:00: 00 11-03 16:21 :00 No 1{tbl} 1 tablet, Oral, ONCE, 1 dose, On Sun11/03/22 at 1100, SKYLAR [facility] dexamethaso ne sod phos PF injection 10 mg 11-03 16:00: 00 11-03 16:27 :00 No 10mg 10 mg, Slow IV Push, ONCE, 1 dose, On Sun11/03/22 at 1100, 1 mL [facility] metoclopram chelo HCl (REGLAN) injection 10 mg 11-03 16:00: 00 11-03 16:28 :00 No 10mg 10 mg, Slow IV Push, ONCE, 1 dose, On Sun11/03/22 at 1100, SKYLAR [facility] diphenhydrA MINE (BENADRYL) injection 25 mg 11-03 16:00: 00 11-03 16:30 :00 No 25mg 25 mg, Slow IV Push, ONCE, 1 dose, On Sun11/03/22 at 1100, STAT [facility] atorvastati n 10 mg tablet 11-03 10:48: 00 11-03 00:00 :00 No 10mg Take 10 mg by mouth at bedtime. [facility] butalbital- acetaminoph en-caff 50-325-40 mg tablet 11-03 00:00: 00 Yes [id number] 1{tbl} Take 1 tablet by mouth every 6 (six) hours as needed for Pain (scale 7-10) or Pain (scale 4-6) for up to 12 doses. [facility] peg-electro lyte soln 236-22.74-6 .74 -5.86 gram solution 10-19 00:00: 00 11-03 00:00 :00 No [id number] Take as directed before colonoscop y [facility] TAKE 1 TABLET DAILY. 10-12 00:00: 00 06-12 00:00 :00 No 40 [facility] Cali busPIRone 15 mg tablet 10-04 00:00: 00 12-13 00:00 :00 No [id number] 15mg Take 1 tablet by mouth in the morning and 1 tablet in the evening. [facility] clonazePAM 1 mg tablet 09-28 00:00: 00 12-20 00:00 :00 No [id number] Take 1 tablet by mouth twice daily as needed for anxiety. [facility] DULoxetine 60 mg capsule 8-15 00:00: 00 11-22 00:00 :00 No [id number] 60mg Take 1 capsule by mouth in the morning and 1 capsule in the evening. [facility] lithium carbonate CR 450 mg SR tablet 8-02 00:00: 00 11-28 00:00 :00 No [id number] 900mg Take 2 tablets by mouth at bedtime. [facility] busPIRone 10 mg tablet 09-13 00:00: 00 10-04 00:00 :00 No [id number] 10mg Take 1 tablet by mouth in the morning and 1 tablet in the evening. [facility] clonazePAM 1 mg tablet -19 00:00: 00 09-25 00:00 :00 No [id number] Take 1 tablet by mouth twice daily as needed for anxiety. [facility] TAKE 2 TABLETS ONCE A DAY BY MOUTH 13 00:00: 00 06-12 00:00 :00 No 200 [facility] FUROSEMIDE ORAL 14 09:33: 26 07-26 00:00 :00 No 40mg Take 40 mg by mouth daily. [facility] traZODone 50 mg tablet 14 00:00: 00 11-28 00:00 :00 No [id number] 50mg Take 1 tablet by mouth at bedtime. May cut tablet in half. [facility] DULoxetine 60 mg capsule 0 14 00:00: 00 09-25 00:00 :00 No [id number] 60mg Take 1 capsule by mouth in the morning and 1 capsule in the evening. [facility] lithium carbonate CR 450 mg SR tablet 14 00:00: 00 09-13 00:00 :00 No [id number] 900mg Take 2 tablets by mouth at bedtime. [facility] busPIRone 10 mg tablet 0 14 00:00: 00 09-13 00:00 :00 No [id number] 10mg Take 1 tablet by mouth in the morning and 1 tablet in the evening. [facility] INHALE 2 PUFFS EVERY 4-6 HOURS NEEDED. 6-10 00:00: 00 06-12 00:00 :00 No [id number] Robert Cali clonazePAM 1 mg tablet 24 00:00: 00 08-29 00:00 :00 No [id number] Take 1 tablet by mouth twice daily as needed for anxiety. [facility] TAKE 1 CAPSULE 3 TIMES DAILY WITH MEALS. 16 00:00: 00 06-12 00:00 :00 No 120 Robert Cali DULoxetine 60 mg capsule 06-20 00:00: 00 07-26 00:00 :00 No [id number] 60mg Take 1 capsule by mouth in the morning and 1 capsule in the evening. [facility] lithium carbonate CR 450 mg SR tablet 06-20 00:00: 00 07-26 00:00 :00 No [id number] 900mg Take 2 tablets by mouth at bedtime. [facility] TAKE 1 TABLET TWICE DAILY. 04 00:00: 00 06-12 00:00 :00 No 75 Robert Cali TAKE 1 TABLET BY MOUTH DAILY -11 00:00: 00 06-12 00:00 :00 No 200 Robert Cali TAKE 1 CAPSULE 3 TIMES DAILY WITH MEALS. - 00:00: 00 06-12 00:00 :00 No 120 Robert Cali TAKE 1 TABLET EVERY 4 HOURS NEEDED. -11 00:00: 00 06-12 00:00 :00 No 10 Robert Cali traZODone 50 mg tablet 04-20 00:00: 00 07-26 00:00 :00 No [id number] 50mg Take 1 tablet by mouth at bedtime. May cut tablet in half. [facility] clonazePAM 1 mg tablet 04-20 00:00: 00 07-05 00:00 :00 No [id number] Take 1 tablet by mouth twice daily as needed for anxiety. [facility] DULoxetine 60 mg capsule 3-09 00:00: 00 06-17 00:00 :00 No [id number] 60mg Take 1 capsule by mouth in the morning and 1 capsule in the evening. [facility] lithium carbonate CR 450 mg SR tablet 3-09 00:00: 00 06-17 00:00 :00 No [id number] 900mg Take 2 tablets by mouth at bedtime. [facility] traZODone 50 mg tablet 1-04 00:00: 00 04-20 00:00 :00 No [id number] 50mg Take 1 tablet by mouth at bedtime. May cut tablet in half. [facility] lithium carbonate CR 450 mg SR tablet 1- 00:00: 00 04-20 00:00 :00 No [id number] 900mg Take 2 tablets by mouth at bedtime. [facility] DULoxetine 60 mg capsule 1-04 00:00: 00 04-19 00:00 :00 No [id number] 60mg Take 1 capsule by mouth in the morning and 1 capsule in the evening. [facility] clonazePAM 1 mg tablet 1-04 00:00: 00 04-19 00:00 :00 No [id number] Take 1 tablet by mouth twice daily as needed for anxiety. [facility] lithium 600 mg capsule 1-04 00:00: 00 02-15 00:00 :00 No [id number] 600mg Take 1 capsule by mouth in the morning and 1 capsule in the evening. [facility] DULoxetine 60 mg capsule 2021-02 2-28 00:00: 00 02-15 00:00 :00 No [id number] 60mg Take 1 capsule by mouth in the morning and 1 capsule in the evening. [facility] traZODone 50 mg tablet 2021-02 1-30 00:00: 00 02-15 00:00 :00 No [id number] 50mg Take 1 tablet by mouth at bedtime. May cut tablet in half. [facility] clonazePAM 1 mg tablet 2021-02 00:00: 00 02-15 00:00 :00 No [id number] Take 1 tablet by mouth twice daily as needed for anxiety. [facility] DULoxetine 60 mg capsule 2021-02 00:00: 00 02-07 00:00 :00 No [id number] 60mg Take 1 capsule by mouth in the morning and 1 capsule in the evening. [facility] traZODone 50 mg tablet 2021-02 00:00: 00 01-11 00:00 :00 No [id number] 50mg Take 1 tablet by mouth at bedtime. May cut tablet in half. [facility] DULoxetine 60 mg capsule 2021-02 0- 00:00: 00 01-09 00:00 :00 No [id number] 60mg Take 1 capsule by mouth in the morning and 1 capsule in the evening. [facility] lithium 600 mg capsule 2021-02 0-20 00:00: 00 02-15 00:00 :00 No [id number] 600mg Take 1 capsule by mouth in the morning and 1 capsule in the evening. [facility] lamoTRIgine 25 mg tablet 2021-02 0-20 00:00: 00 01-11 00:00 :00 No [id number] 50mg Take 2 tablets by mouth in the morning and 2 tablets in the evening. [facility] clonazePAM 1 mg tablet 2021-02 0-20 00:00: 00 01-09 00:00 :00 No [id number] Take 1 tablet by mouth twice daily as needed for anxiety. [facility] lamoTRIgine 25 mg tablet 8- 00:00: 00 11-30 00:00 :00 No [id number] 50mg Take 2 tablets by mouth in the morning and 2 tablets in the evening. [facility] clonazePAM 1 mg tablet 2021- 8- 00:00: 00 11-30 00:00 :00 No [id number] Take no more than 1 mg twice daily as needed for anxiety [facility] lithium 600 mg capsule 0 8-25 00:00: 00 11-30 00:00 :00 No [id number] 600mg Take 1 capsule by mouth in the morning and 1 capsule in the evening. [facility] Lamotrigine 50 mg tablet 0 8-25 00:00: 00 10-07 00:00 :00 No [id number] 50mg Take 1 tablet by mouth in the morning and 1 tablet in the evening. [facility] Lamotrigine 50 mg tablet 8- 00:00: 00 10-06 00:00 :00 No [id number] 50mg Take 1 tablet by mouth in the morning and 1 tablet in the evening. [facility] DULoxetine 60 mg capsule 7-27 00:00: 00 12-05 00:00 :00 No [id number] 60mg Take 1 capsule by mouth in the morning and 1 capsule in the evening. [facility] Lamotrigine 50 mg tablet 0 7-18 00:00: 00 09-22 00:00 :00 No [id number] 50mg Take 1 tablet by mouth in the morning and 1 tablet in the evening. [facility] lithium 600 mg capsule 0 7-13 00:00: 00 10-06 00:00 :00 No [id number] 600mg Take 1 capsule by mouth in the morning and 1 capsule in the evening. [facility] DULoxetine 60 mg capsule 0 6-28 00:00: 00 Yes [id number] 60mg Take 1 capsule by mouth 2 (two) times daily. [facility] traZODone 50 mg tablet 2021-0 6-28 00:00: 00 01-02 00:00 :00 No [id number] 50mg Take 1 tablet by mouth at bedtime. May cut tablet in half. [facility] clonazePAM 1 mg tablet 2021-0 6- 00:00: 00 10-06 00:00 :00 No [id number] Take no more than 1 mg twice daily as needed for anxiety [facility] CYANOCOBALA M INJ [id number] [employer] 06-04 00:00: 00 Yes Robert Cali DULoxetine 60 mg capsule 05-26 00:00: 00 08-09 00:00 :00 No [id number] 60mg Take 1 capsule by mouth 2 (two) times daily. [facility] traZODone 50 mg tablet 05-26 00:00: 00 08-09 00:00 :00 No [id number] 50mg Take 1 tablet by mouth at bedtime. May cut tablet in half. [facility] vitamin B-12 1,000 mcg tablet 05-23 00:00: 00 11-03 00:00 :00 No [id number] 1000ug Take 1 tablet by mouth daily. [facility] cyanocobala min 1,000 mcg/mL injection 05-23 00:00: 00 11-03 00:00 :00 No [id number] 1000ug 1 mL by Intramuscu lar route weekly. [facility] losartan potassium (LOSARTAN ORAL) 05-17 09:24: 36 Yes 20mg Take 20 mg by mouth. [facility] FUROSEMIDE ORAL 05-17 09:24: 36 Yes 40mg Take 40 mg by mouth daily. [facility] magnesium gluconate 200 mg tablet 05-17 00:00: 00 Yes [id number] 400mg Take 2 tablets by mouth 2 (two) times daily. [facility] gabapentin 300 mg capsule 05-17 00:00: 00 11-03 00:00 :00 No [id number] 300mg Take 1 capsule by mouth 3 (three) times daily. [facility] rizatriptan 5 mg disintegrat ing tablet 05-17 00:00: 00 11-03 00:00 :00 No [id number] 5mg Take 1 tablet by mouth as needed for Migraine (Take 5mg at the beginning of the headache can repeat 2h after if headaches persists). May repeat in 2 hours if needed [facility] magnesium gluconate 200 mg tablet 2021-0 4-05 00:00: 00 11-03 00:00 :00 No [id number] 400mg Take 2 tablets by mouth 2 (two) times daily. [facility] artificial tears,hypro mellose, 0.5 % ophthalmic drops 2021-0 4-05 00:00: 00 06-22 00:00 :00 No [id number] 1[drp] Place 1 Drop in left eye as needed for Dry eyes. [facility] Dose Unknown 2021-0 4-04 00:00: 00 Yes [...] 4-04 00:00: 00 Yes Robert F Viraj clonazePAM 1 mg tablet 2021-0 3-31 00:00: 00 08-09 00:00 :00 No [id number] Take no more than 1 mg twice daily as needed for anxiety [facility] lithium 600 mg capsule 3-30 00:00: 00 06-12 00:00 :00 No [id number] 600mg Take 1 capsule by mouth 2 (two) times daily. [facility] ondansetron (ZOFRAN ODT) 4 mg disintegrat ing tablet 09-02 00:00: 00 11-03 00:00 :00 No [id number] 4mg Take 1 tablet by mouth every 8 (eight) hours as needed for Nausea and Vomiting (N/V). [facility] butalbital- acetaminoph en-caff 50-325-40 mg tablet 09-02 00:00: 00 06-22 00:00 :00 No [id number] 1{tbl} Take 1 tablet by mouth every 6 (six) hours as needed for Pain (scale 7-10). [facility] Dose Unknown 07-14 00:00: 00 Yes Robert [...] Yes Robert F Viraj Dose Unknown 0 - 00:00: 00 Yes Robert F Viraj Dose Unknown 0 - 00:00: 00 Yes Robert F Viraj Dose Unknown 20206-30 00:00: 00 Yes Robert Cali Dose Unknown 06-30 00:00: 00 Yes Robert Cali Dose Unknown 06-30 00:00: 00 Yes Robert Cali Dose Unknown 06-09 00:00: 00 Yes Robert Cali Dose Unknown 06-09 00:00: 00 Yes Robert Cali Dose Unknown 06-09 00:00: 00 Yes Robert Cali allopurinoL 100 mg tablet 08-05 13:17: 52 Yes 100mg Take 1 tablet by mouth in the morning. [facility] atorvastati n 10 mg tablet 08-05 13:17: 52 Yes 10mg Take 10 mg by mouth at bedtime. [facility] propranolol 80 mg tablet 08-05 13:12: 38 Yes 80mg Take 1 tablet by mouth in the morning and 1 tablet in the evening. [facility] nitrofurant oin monohydrate /macrocryst als 100 mg capsule Take 1 capsule twice a day by oral route for 7 days. nitrofurant oin monohydrate /macrocryst als 100 mg capsule Take 1 capsule twice a day by oral route for 7 days. No 1capsul e(s) BID nitrofuran toin monohydrat e/macrocry stals 100 mg capsule Take 1 capsule twice a day by oral route for 7 days. [facility] alprazolam 0.5 mg tablet Take 1 tablet 3 times a day by oral route. alprazolam 0.5 mg tablet Take 1 tablet 3 times a day by oral route. No 1 TID alprazolam 0.5 mg tablet Take 1 tablet 3 times a day by oral route. [facility] amlodipine 10 mg tablet Take 1 tablet every day by oral route. amlodipine 10 mg tablet Take 1 tablet every day by oral route. No 1 Q1D amlodipine 10 mg tablet Take 1 tablet every day by oral route. [facility] losartan 100 mg tablet Take 1 tablet every day by oral route. losartan 100 mg tablet Take 1 tablet every day by oral route. No 1 Q1D losartan 100 mg tablet Take 1 tablet every day by oral route. [facility] omeprazole 40 mg capsule,del ayed release Take 1 capsule every day by oral route. omeprazole 40 mg capsule,del ayed release Take 1 capsule every day by oral route. No 1capsul e(s) Q1D omeprazole 40 mg capsule,de layed release Take 1 capsule every day by oral route. [facility] propranolol propranolol No pr opranolo l [facility] rosuvastati n 10 mg tablet Take 1 tablet every day by oral route. rosuvastati n 10 mg tablet Take 1 tablet every day by oral route. No 1 Q1D rosuvastat in 10 mg tablet Take 1 tablet every day by oral route. [facility] Ubrelvy 100 mg tablet Take by oral route. Ubrelvy 100 mg tablet Take by oral route. No Ubrelvy 100 mg tablet Take by oral route. [facility] progesteron e micronized 100 mg capsule TAKE 1 CAPSULE BY MOUTH DAILY progesteron e micronized 100 mg capsule TAKE 1 CAPSULE BY MOUTH DAILY No 1capsul e(s) Q1D progestero ne micronized 100 mg capsule TAKE 1 CAPSULE BY MOUTH DAILY [facility] clonazePAM clonazePAM No clonazePAM amLODIPine Besylate [...] Status Comments Source TDAP 2023-10-02 00:00:00 Completed [facility] Influenza Virus Vaccine Quad .5 mL IM 6+ MO (FLUZONE/FLULAVAL/F LUARIX) 2023-10-02 00:00:00 Completed [facility] SARS-COV-2 COVID-19 VACCINE - (MODERNA) 2023-10-02 00:00:00 Completed [facility] SARS-COV-2 COVID-19 VACCINE - (MODERNA) 2023-09-28 00:00:00 Completed [facility] TDAP 2023-07-30 00:00:00 Completed [facility] Influenza Virus Vaccine Quad .5 mL IM 6+ MO (FLUZONE/FLULAVAL/F LUARIX) 2023-07-30 00:00:00 Completed [facility] TDAP 2023-07-26 09:30:00 Completed [facility] Influenza Virus Vaccine Quad .5 mL IM 6+ MO (FLUZONE/FLULAVAL/F LUARIX) 2023-07-26 09:30:00 Completed [facility] SARS-COV-2 COVID-19 VACCINE - (MODERNA) 2023-07-26 09:30:00 Completed [facility] TDAP 2023-07-02 00:00:00 Completed [facility] Influenza Virus Vaccine Quad .5 mL IM 6+ MO (FLUZONE/FLULAVAL/F LUARIX) 2023-07-02 00:00:00 Completed [facility] SARS-COV-2 COVID-19 VACCINE - (MODERNA) 2023-07-02 00:00:00 Completed [facility] TDAP 2023-06-13 00:00:00 Completed [facility] Influenza Virus Vaccine Quad .5 mL IM 6+ MO (FLUZONE/FLULAVAL/F LUARIX) 2023-06-13 00:00:00 Completed [facility] SARS-COV-2 COVID-19 VACCINE - (MODERNA) 2023-06-13 00:00:00 Completed [facility] TDAP 2023-06-07 21:35:00 Completed [facility] Influenza Virus Vaccine Quad .5 mL IM 6+ MO (FLUZONE/FLULAVAL/F LUARIX) 2023-06-07 21:35:00 Completed [facility] SARS-COV-2 COVID-19 VACCINE - (MODERNA) 2023-06-07 21:35:00 Completed [facility] TDAP 2023-05-29 00:00:00 Completed [facility] Influenza Virus Vaccine Quad .5 mL IM 6+ MO (FLUZONE/FLULAVAL/F LUARIX) 2023-05-29 00:00:00 Completed [facility] SARS-COV-2 COVID-19 VACCINE - (MODERNA) 2023-05-29 00:00:00 Completed [facility] TDAP 2023-05-11 00:00:00 Completed [facility] Influenza Virus Vaccine Quad .5 mL IM 6+ MO (FLUZONE/FLULAVAL/F LUARIX) 2023-05-11 00:00:00 Completed [facility] SARS-COV-2 COVID-19 VACCINE - (MODERNA) 2023-05-11 00:00:00 Completed [facility] TDAP 2023-05-09 00:00:00 Completed [facility] Influenza Virus Vaccine Quad .5 mL IM 6+ MO (FLUZONE/FLULAVAL/F LUARIX) 2023-05-09 00:00:00 Completed [facility] SARS-COV-2 COVID-19 VACCINE - (MODERNA) 2023-05-09 00:00:00 Completed [facility] TDAP 2023-03-28 00:00:00 Completed [facility] Influenza Virus Vaccine Quad .5 mL IM 6+ MO (FLUZONE/FLULAVAL/F LUARIX) 2023-03-28 00:00:00 Completed [facility] SARS-COV-2 COVID-19 VACCINE - (MODERNA) 2023-03-28 00:00:00 Completed [facility] Influenza, injectable, MDCK, quadrivalent, preservative Influenza, injectable, MDCK, quadrivalent, preservative 2022-10-27 00:00:00 Completed Robert Cali influenza, injectable influenza, injectable 2020-11-13 00:00:00 Completed Robert Cali Tdap Tdap 2020-09-11 00:00:00 Completed Robert Cali Moderna COVID-19 Vaccine Moderna COVID-19 Vaccine 2020-04-24 00:00:00 Completed Robert Cali Moderna COVID-19 Vaccine Moderna COVID-19 Vaccine 2020-03-19 00:00:00 Completed Robert Cali TDAP Unknown Completed [facility] Influenza Virus Vaccine Quad .5 mL IM 6+ MO (FLUZONE/FLULAVAL/F LUARIX) Unknown Completed [facility] SARS-COV-2 COVID-19 VACCINE - (MODERNA) Unknown Completed [facility] TDAP Unknown Completed [facility] Influenza Virus Vaccine Quad .5 mL IM 6+ MO (FLUZONE/FLULAVAL/F LUARIX) Unknown Completed [facility] SARS-COV-2 COVID-19 VACCINE - (MODERNA) Unknown Completed [facility] TDAP Unknown Completed [facility] Influenza Virus Vaccine Quad .5 mL IM 6+ MO (FLUZONE/FLULAVAL/F LUARIX) Unknown Completed [facility] SARS-COV-2 COVID-19 VACCINE - (MODERNA) Unknown [facility] Influenza Virus Vaccine Quad .5 mL IM 6+ MO (FLUZONE/FLULAVAL/F LUARIX) Unknown Completed [facility] SARS-COV-2 COVID-19 VACCINE - (MODERNA) Unknown Completed [facility] TDAP Unknown Completed [facility] Influenza Virus Vaccine Quad .5 mL IM 6+ MO (FLUZONE/FLULAVAL/F LUARIX) Unknown Completed [facility] SARS-COV-2 COVID-19 VACCINE - (MODERNA) Unknown Completed [facility] TDAP Unknown Completed [facility] Influenza Virus Vaccine Quad .5 mL IM 6+ MO (FLUZONE/FLULAVAL/F LUARIX) Unknown Completed [facility] SARS-COV-2 COVID-19 VACCINE - (MODERNA) Unknown Completed [facility] TDAP Unknown Completed [facility] Influenza Virus Vaccine Quad .5 mL IM 6+ MO (FLUZONE/FLULAVAL/F LUARIX) Unknown Completed [facility] SARS-COV-2 COVID-19 VACCINE - (MODERNA) Unknown Completed [facility] TDAP Unknown Completed [facility] Influenza Virus Vaccine Quad .5 mL IM 6+ MO (FLUZONE/FLULAVAL/F LUARIX) Unknown Completed [facility] SARS-COV-2 COVID-19 VACCINE - (MODERNA) Unknown Completed [facility] TDAP Unknown Completed [facility] Influenza Virus Vaccine Quad .5 mL IM 6+ MO (FLUZONE/FLULAVAL/F LUARIX) Unknown Completed [facility] SARS-COV-2 COVID-19 VACCINE - (MODERNA) Unknown Completed [facility] TDAP Unknown Completed [facility] Influenza Virus Vaccine Quad .5 mL IM 6+ MO (FLUZONE/FLULAVAL/F LUARIX) Unknown Completed [facility] SARS-COV-2 COVID-19 VACCINE - (MODERNA) Unknown Completed [facility] TDAP Unknown Completed [facility] Influenza Virus Vaccine Quad .5 mL IM 6+ MO (FLUZONE/FLULAVAL/F LUARIX) Unknown Completed [facility] SARS-COV-2 COVID-19 VACCINE - (MODERNA) Unknown Completed [facility] TDAP Unknown Completed [facility] Influenza Virus Vaccine Quad .5 mL IM 6+ MO (FLUZONE/FLULAVAL/F LUARIX) Unknown Completed [facility] SARS-COV-2 COVID-19 VACCINE - (MODERNA) Unknown Completed [facility] TDAP Unknown Completed [facility] Influenza Virus Vaccine Quad .5 mL IM 6+ MO (FLUZONE/FLULAVAL/F LUARIX) Unknown Completed [facility] SARS-COV-2 COVID-19 VACCINE - (MODERNA) Unknown Completed [facility] TDAP Unknown Completed [facility] Influenza Virus Vaccine Quad .5 mL IM 6+ MO (FLUZONE/FLULAVAL/F LUARIX) Unknown Completed [facility] SARS-COV-2 COVID-19 VACCINE - (MODERNA) Unknown Completed [facility] TDAP Unknown Completed [facility] Influenza Virus Vaccine Quad .5 mL IM 6+ MO (FLUZONE/FLULAVAL/F LUARIX) Unknown Completed [facility] SARS-COV-2 COVID-19 VACCINE - (MODERNA) Unknown Completed [facility] Vital Signs Vital Name Observation Time Observation Value Comments S ource BMI (Body Mass Index) 2024-04-03 00:00:00 34.2 kg/m2 [facility] Body Weight 2024-04-03 00:00:00 212.2 [lb_av] [facility] BP Diastolic 2024-04-03 00:00:00 88 mm[Hg] [facility] Height 2024-04-03 00:00:00 66 [in_i] [facility] BP Systolic 2024-04-03 00:00:00 128 mm[Hg] [facility] Body Weight 2024-03-07 00:00:00 212.2 [lb_av] [facility] height 2023-11-27 15:30:00 66 [in_i] [facility] weight-kg 2023-11-27 15:30:00 97.52 kg [facility] bmi 2023-11-27 15:30:00 34.7 kg/m2 [facility] temperature 2023-11-27 15:30:00 97.6 [degF] [facility] respiratory rate 2023-11-27 15:30:00 16 /min [facility] heart rate 2023-11-27 15:30:00 85 /min [facility] blood pressure systolic 2023-11-27 15:30:00 164 mm[Hg] [facility] blood pressure diastolic 2023-11-27 15:30:00 87 mm[Hg] [facility] Systolic blood pressure 2023-07-26 14:17:00 177 mm[Hg] [facility] Diastolic blood pressure 2023-07-26 14:17:00 92 mm[Hg] [facility] Heart rate 2023-07-26 14:17:00 97 /min [facility] Body temperature 2023-07-26 14:17:00 36.39 Verna [facility] Respiratory rate 2023-07-26 14:17:00 18 /min [facility] Body height 2023-07-26 14:17:00 167.6 cm [facility] Body weight 2023-07-26 14:17:00 100.472 kg [facility] BMI 2023-07-26 14:17:00 35.75 kg/m2 [facility] Oxygen saturation in Arterial blood by Pulse oximetry 2023-07-26 14:17:00 97 /min [facility] Systolic blood pressure 2023-06-08 07:00:00 112 mm[Hg] [facility] Diastolic blood pressure 2023-06-08 07:00:00 62 mm[Hg] [facility] Heart rate 2023-06-08 07:00:00 72 /min [facility] Respiratory rate 2023-06-08 07:00:00 20 /min [facility] Oxygen saturation in Arterial blood by Pulse oximetry 2023-06-08 07:00:00 97 /min [facility] Body weight 2023-06-08 02:41:00 108.863 kg [facility] BMI 2023-06-08 02:41:00 38.74 kg/m2 [facility] Body temperature 2023-06-08 02:38:00 36.67 Verna [facility] Body height 2023-06-08 02:34:00 167.6 cm [facility] Systolic blood pressure 2023-02-15 15:53:00 132 mm[Hg] [facility] Diastolic blood pressure 2023-02-15 15:53:00 73 mm[Hg] [facility] Heart rate 2023-02-15 15:53:00 74 /min [facility] Body temperature 2023-02-15 15:53:00 36.44 Verna [facility] Respiratory rate 2023-02-15 15:53:00 16 /min [facility] Body height 2023-02-15 15:53:00 167.6 cm [facility] Body weight 2023-02-15 15:53:00 100.336 kg [facility] BMI 2023-02-15 15:53:00 35.70 kg/m2 [facility] Oxygen saturation in Arterial blood by Pulse oximetry 2023-02-15 15:53:00 100 /min [facility] Systolic blood pressure 2022-11-13 14:08:00 117 mm[Hg] [facility] Diastolic blood pressure 2022-11-13 14:08:00 70 mm[Hg] [facility] Heart rate 2022-11-13 14:08:00 64 /min [facility] Respiratory rate 2022-11-13 14:08:00 12 /min [facility] Oxygen saturation in Arterial blood by Pulse oximetry 2022-11-13 14:08:00 99 /min [facility] Body temperature 2022-11-13 13:38:00 36.39 Verna [facility] Body height 2022-11-13 12:15:00 167.6 cm [facility] Body weight 2022-11-13 12:15:00 95.21 kg [facility] [facility] BMI 2022-11-13 12:15:00 33.88 kg/m2 [facility] Systolic blood pressure 2022-11-13 12:15:00 142 mm[Hg] [facility] Diastolic blood pressure 2022-11-13 12:15:00 66 mm[Hg] [facility] Heart rate 2022-11-13 12:15:00 77 /min [facility] Body temperature 2022-11-13 12:15:00 36 Verna [facility] Respiratory rate 2022-11-13 12:15:00 21 /min [facility] Body height 2022-11-13 12:15:00 167.6 cm [facility] Body weight 2022-11-13 12:15:00 95.21 kg [facility] BMI 2022-11-13 12:15:00 33.88 kg/m2 [facility] Oxygen saturation in Arterial blood by Pulse oximetry 2022-11-13 12:15:00 95 /min [facility] Systolic blood pressure 2022-11-03 15:35:00 154 mm[Hg] [facility] Diastolic blood pressure 2022-11-03 15:35:00 86 mm[Hg] [facility] Heart rate 2022-11-03 15:35:00 86 /min [facility] Body temperature 2022-11-03 15:35:00 37 Verna [facility] Respiratory rate 2022-11-03 15:35:00 18 /min [facility] Body height 2022-11-03 15:35:00 167.6 cm [facility] Body weight 2022-11-03 15:35:00 97.523 kg [facility] BMI 2022-11-03 15:35:00 34.70 kg/m2 [facility] Oxygen saturation in Arterial blood by Pulse oximetry 2022-11-03 15:35:00 99 /min [facility] Systolic blood pressure 2022-10-19 12:35:00 159 mm[Hg] Provider Notified [facility] Diastolic blood pressure 2022-10-19 12:35:00 85 mm[Hg] Provider Notified [facility] Heart rate 2022-10-19 12:35:00 94 /min [facility] Body temperature 2022-10-19 12:33:00 36.78 Verna [facility] Respiratory rate 2022-10-19 12:33:00 16 /min [facility] Body height 2022-10-19 12:33:00 167.6 cm [facility] Body weight 2022-10-19 12:33:00 96.616 kg [facility] BMI 2022-10-19 12:33:00 34.38 kg/m2 [facility] Oxygen saturation in Arterial blood by Pulse oximetry 2022-10-19 12:33:00 98 /min [facility] BP Systolic 2024-04-02 09:41:00 126 mm[Hg] Robert Cali BP Diastolic 2024-04-02 09:41:00 63 mm[Hg] Robert F Viraj Weight Measured 2024-04-02 09:41:00 212.00 pounds Robert F Viraj Height Measured 2024-04-02 09:41:00 66.00 inches Robert F Viraj Body Temperature 2024-04-02 09:41:00 98.70 degrees Robert F Viraj Heart Rate 2024-04-02 09:41:00 75.00 /min Robert F Viraj Respiratory Rate 2024-04-02 09:41:00 18.00 /min Robert F Viraj BP Systolic 2024-03-19 09:39:00 109 mm[Hg] Robert F Viraj BP Diastolic 2024-03-19 09:39:00 74 mm[Hg] Robert F Viraj Weight Measured 2024-03-19 09:39:00 213.80 pounds Robert F Viraj Height Measured 2024-03-19 09:39:00 66.00 inches Robert F Viraj Body Temperature 2024-03-19 09:39:00 98.10 degrees Robert F Viraj Heart Rate 2024-03-19 09:39:00 69.00 /min Robert F Viraj Respiratory Rate 2024-03-19 09:39:00 18.00 /min Robert F Viraj BP Systolic 2024-02-11 10:20:00 161 mm[Hg] Robert F Viraj BP Diastolic 2024-02-11 10:20:00 85 mm[Hg] Robert F Viraj Weight Measured 2024-02-11 10:20:00 Robert F Viraj Height Measured 2024-02-11 10:20:00 Robert F Viraj Body Temperature 2024-02-11 10:20:00 98.00 degrees Robert F Viraj Heart Rate 2024-02-11 10:20:00 88.00 /min Robert F Viraj Respiratory Rate 2024-02-11 10:20:00 17.00 /min Robert F Viraj BP Systolic 2024-01-30 13:49:00 169 mm[Hg] Robert [...] Systolic blood pressure 2023-09-03 14:41:00 131 mm[Hg] [facility] Diastolic blood pressure 2023-09-03 14:41:00 73 mm[Hg] [facility] Heart rate 2023-09-03 14:41:00 93 /min [facility] Respiratory rate 2023-09-03 14:38:00 20 /min [facility] Body height 2023-09-03 14:38:00 167.6 cm [facility] Body weight 2023-09-03 14:38:00 100.2 kg [facility] BMI 2023-09-03 14:38:00 35.65 kg/m2 [facility] Systolic blood pressure 2023-07-26 14:17:00 177 mm[Hg] [facility] Diastolic blood pressure 2023-07-26 14:17:00 92 mm[Hg] [facility] Heart rate 2023-07-26 14:17:00 97 /min [facility] Body temperature 2023-07-26 14:17:00 36.39 Verna [facility] Respiratory rate 2023-07-26 14:17:00 18 /min [facility] Body height 2023-07-26 14:17:00 167.6 cm [facility] Body weight 2023-07-26 14:17:00 100.472 kg [facility] BMI 2023-07-26 14:17:00 35.75 kg/m2 [facility] Oxygen saturation in Arterial blood by Pulse oximetry 2023-07-26 14:17:00 97 /min [facility] Systolic blood pressure 2023-06-08 07:00:00 112 mm[Hg] [facility] Diastolic blood pressure 2023-06-08 07:00:00 62 mm[Hg] [facility] Heart rate 2023-06-08 07:00:00 72 /min [facility] Respiratory rate 2023-06-08 07:00:00 20 /min [facility] Oxygen saturation in Arterial blood by Pulse oximetry 2023-06-08 07:00:00 97 /min [facility] Body weight 2023-06-08 02:41:00 108.863 kg [facility] BMI 2023-06-08 02:41:00 38.74 kg/m2 [facility] Body temperature 2023-06-08 02:38:00 36.67 Verna [facility] Body height 2023-06-08 02:34:00 167.6 cm [facility] BP Systolic 2023-05-22 08:18:00 134 mm[Hg] Robert Arnol Viraj BP Diastolic 2023-05-22 08:18:00 65 mm[Hg] Robert Cali Weight Measured 2023-05-22 08:18:00 219.00 pounds Robert Cali Height Measured 2023-05-22 08:18:00 66.00 inches Robert Cali Body Temperature 2023-05-22 08:18:00 97.50 degrees Robert Cali Heart Rate 2023-05-22 08:18:00 83.00 /min Robert Cali Respiratory Rate 2023-05-22 08:18:00 19.00 /min Robert Cali Systolic blood pressure 2023-02-15 15:53:00 132 mm[Hg] [facility] Diastolic blood pressure 2023-02-15 15:53:00 73 mm[Hg] [facility] Heart rate 2023-02-15 15:53:00 74 /min [facility] Body temperature 2023-02-15 15:53:00 36.44 Verna [facility] Respiratory rate 2023-02-15 15:53:00 16 /min [facility] Body height 2023-02-15 15:53:00 167.6 cm [facility] Body weight 2023-02-15 15:53:00 100.336 kg [facility] BMI 2023-02-15 15:53:00 35.70 kg/m2 [facility] Oxygen saturation in Arterial blood by Pulse oximetry 2023-02-15 15:53:00 100 /min [facility] Systolic blood pressure 2023-01-22 15:03:00 144 mm[Hg] [facility] Diastolic blood pressure 2023-01-22 15:03:00 83 mm[Hg] [facility] Heart rate 2023-01-22 15:03:00 97 /min [facility] Respiratory rate 2023-01-22 15:00:00 18 /min [facility] Body height 2023-01-22 15:00:00 167.6 cm [facility] Body weight 2023-01-22 15:00:00 95.2 kg [facility] BMI 2023-01-22 15:00:00 33.88 kg/m2 [facility] BP Systolic 2022-12-20 09:52:00 [...] Systolic blood pressure 2022-11-13 14:08:00 117 mm[Hg] [facility] Diastolic blood pressure 2022-11-13 14:08:00 70 mm[Hg] [facility] Heart rate 2022-11-13 14:08:00 64 /min [facility] Respiratory rate 2022-11-13 14:08:00 12 /min [facility] Oxygen saturation in Arterial blood by Pulse oximetry 2022-11-13 14:08:00 99 /min [facility] Body temperature 2022-11-13 13:38:00 36.39 Verna [facility] Body height 2022-11-13 12:15:00 167.6 cm [facility] Body weight 2022-11-13 12:15:00 95.21 kg [facility] BMI 2022-11-13 12:15:00 33.88 kg/m2 [facility] Systolic blood pressure 2022-11-03 15:35:00 154 mm[Hg] [facility] Diastolic blood pressure 2022-11-03 15:35:00 86 mm[Hg] [facility] Heart rate 2022-11-03 15:35:00 86 /min [facility] Body temperature 2022-11-03 15:35:00 37 Verna [facility] Respiratory rate 2022-11-03 15:35:00 18 /min [facility] Body height 2022-11-03 15:35:00 167.6 cm [facility] Body weight 2022-11-03 15:35:00 97.523 kg [facility] BMI 2022-11-03 15:35:00 34.70 kg/m2 [facility] Oxygen saturation in Arterial blood by Pulse oximetry 2022-11-03 15:35:00 99 /min [facility] BP Systolic 2022-10-12 10:06:00 [...] Systolic blood pressure 2022-10-04 14:26:00 149 mm[Hg] [facility] Diastolic blood pressure 2022-10-04 14:26:00 76 mm[Hg] [facility] Heart rate 2022-10-04 14:26:00 78 /min [facility] Respiratory rate 2022-10-04 14:21:00 18 /min [facility] Body height 2022-10-04 14:21:00 167.6 cm [facility] Body weight 2022-10-04 14:21:00 96.843 kg [facility] BMI 2022-10-04 14:21:00 34.46 kg/m2 [facility] Systolic blood pressure 2022-07-26 13:22:00 135 mm[Hg] [facility] Diastolic blood pressure 2022-07-26 13:22:00 78 mm[Hg] [facility] Heart rate 2022-07-26 13:22:00 85 /min [facility] Respiratory rate 2022-07-26 13:22:00 18 /min [facility] Body height 2022-07-26 13:22:00 167.6 cm [facility] Body weight 2022-07-26 13:22:00 97.523 kg [facility] BMI 2022-07-26 13:22:00 34.70 kg/m2 [facility] BP Systolic 2022-06-27 13:54:00 [...] Robert F Viraj Respiratory Rate 2022-06-15 15:23:00 Robret F Viraj BP Systolic 2022-05-23 11:20:00 135 mm[Hg] Robert F Viraj BP Diastolic 2022-05-23 11:20:00 64 mm[Hg] Robert F Viraj Weight Measured 2022-05-23 11:20:00 230.00 pounds Robert F Viraj Height Measured 2022-05-23 11:20:00 66.00 inches Robert Arnol Cali Body Temperature 2022-05-23 11:20:00 97.80 degrees [...] Systolic blood pressure 2022-02-15 14:59:00 131 mm[Hg] [facility] Diastolic blood pressure 2022-02-15 14:59:00 70 mm[Hg] [facility] Heart rate 2022-02-15 14:59:00 81 /min [facility] Respiratory rate 2022-02-15 14:59:00 18 /min [facility] Body height 2022-02-15 14:59:00 167.6 cm [facility] Body weight 2022-02-15 14:59:00 102.967 kg [facility] BMI 2022-02-15 14:59:00 36.64 kg/m2 [facility] Respiratory rate 2022-01-11 17:11:00 18 /min [facility] Body height 2022-01-11 17:11:00 167.6 cm [facility] Body weight 2022-01-11 17:11:00 100.699 kg [facility] BMI 2022-01-11 17:11:00 35.83 kg/m2 [facility] Systolic blood pressure 2021-08-24 14:24:00 133 mm[Hg] [facility] Diastolic blood pressure 2021-08-24 14:24:00 73 mm[Hg] [facility] Heart rate 2021-08-24 14:24:00 69 /min [facility] Respiratory rate 2021-08-24 14:24:00 18 /min [facility] Body height 2021-08-24 14:24:00 167.6 cm [facility] Body weight 2021-08-24 14:24:00 100.245 kg [facility] BMI 2021-08-24 14:24:00 35.67 kg/m2 [facility] Oxygen saturation in Arterial blood by Pulse oximetry 2021-06-07 15:30:00 96 /min [facility] Body temperature 2021-06-07 14:20:30 37.44 Verna [facility] BP Systolic 2020-07-14 23:18:00 Robert Cali BP Diastolic 2020-07-14 23:18:00 Robert Cali Weight Measured 2020-07-14 23:18:00 Robert Cali Height Measured 2020-07-14 23:18:00 Robert Cali Body Temperature 2020-07-14 23:18:00 Robert Cali Heart Rate 2020-07-14 23:18:00 Robert Cali Respiratory Rate 2020-07-14 23:18:00 Robert Cali Procedures Procedure Date / Time Performed Performing Clinician Source Hysteroscopy Ablation 2024-03-07 00:00:00 [facility] US TRANSVAGINAL 2024-02-08 00:00:00 [facility] MAMMO, screening, digital, bilateral 2024-01-23 00:00:00 [facility] URINALYSIS 2023-06-08 03:45:00 Rhiannon Vizcarra [facility] URINE DRUG (IMMUNOASSAY) - COMPREHENSIVE DRUG SCREEN W/O REFLEX 2023-06-08 03:45:00 Marysol Pabon [facility] URINALYSIS 2023-06-08 03:45:00 Rhiannon Vizcarra [facility] URINE DRUG (IMMUNOASSAY) - COMPREHENSIVE DRUG SCREEN W/O REFLEX 2023-06-08 03:45:00 Marysol Pabon [facility] CT STROKE ANGIOGRAM HEAD 2023-06-08 02:56:58 Rhiannon Vizcarra [facility] CT STROKE ANGIOGRAM NECK 2023-06-08 02:56:58 Rhiannon Vizcarra [facility] HB ECG ROUTINE & RHYTHM STRIP 2023-06-08 02:53:51 Rhiannon Vizcarra [facility] CT STROKE HEAD WO CONTRAST 2023-06-08 02:48:28 Rhiannon Vizcarra [facility] TROPONIN I 2023-06-08 02:45:00 Rhiannon Vizcarra [facility] BASIC METABOLIC PANEL (NA, K , CL, CO2, GLUCOSE, BUN, CREATININE, CA) 2023-06-08 02:45:00 Rhiannon Vizcarra [facility] LITHIUM 2023-06-08 02:45:00 Marysol Pabon [facility] ETHANOL 2023-06-08 02:45:00 Marysol Pabon [facility] CBC WITHOUT DIFF 2023-06-08 02:45:00 Rhiannon Vizcarra [facility] PROTHROMBIN TIME / INR 2023-06-08 02:45:00 Rhiannon Vizcarra [facility] ACTIVATED PARTIAL THRMPLAS CIPRIANO 2023-05-15 6 02:45:00 Rhiannon Vizcarra [facility] EXTRA TUBE LAV 2023-06-08 02:45:00 Marysol Pabon [facility] PROTHROMBIN TIME / INR 2023-06-08 02:45:00 Rhiannon Vizcarra [facility] ACTIVATED PARTIAL THRMPLAS CIPRIANO 2023-05-15 6 02:45:00 Rhiannon Vizcarra [facility] CBC WITHOUT DIFF 2023-06-08 02:45:00 Rhiannon Vizcarra [facility] TROPONIN I 2023-06-08 02:45:00 Rhiannon Vizcarra [facility] BASIC METABOLIC PANEL (NA, K , CL, CO2, GLUCOSE, BUN, CREATININE, CA) 2023-06-08 02:45:00 Rhiannon Vizcarra [facility] ETHANOL 2023-06-08 02:45:00 Marysol Pabon [facility] LITHIUM 2023-06-08 02:45:00 Marysol Pabon [facility] EXTRA TUBE LAV 2023-06-08 02:45:00 Marysol Pabon [facility] POCT GLUCOSE(AGE >30DAYS) 2023-06-08 02:39:00 Rhiannon Vizcarra [facility] POCT GLUCOSE(AGE >30DAYS) 2023-06-08 02:39:00 Rhiannon Vizcarra [facility] IRON PANEL 2023-02-15 16:30:00 Elidia Cordero [facility] FERRITIN SERUM 2023-02-15 16:30:00 Elidia Cordero [facility] LITHIUM 2023-01-22 16:35:00 Rosalind Freed [facility] CONSENT/REFUSAL FOR DIAGNOSI S AND TREATMENT 2023-01-22 14:56:09 Doctor Unassigned, [place] [facility] CONSENT/REFUSAL FOR DIAGNOSI S AND TREATMENT 2023-01-22 14:56:09 Doctor Unassigned, [place] [facility] SURGICAL PATHOLOGY EXAM 2022-11-13 13:05:00 Bossman [facility] ESOPHAGOGASTRODUODENOSCOPY 2022-11-13 12:47:00 Bossman [facility] COLONOSCOPY 2022-11-13 12:47:00 Bossman [facility] ESOPHAGOGASTRODUODENOSCOPY 2022-11-13 12:47:00 Bossman [facility] COLONOSCOPY 2022-11-13 12:47:00 Bossman [facility] COLONOSCOPY (ENDO) 2022-11-13 12:28:53 [facility] COLONOSCOPY (ENDO) 2022-11-13 12:28:53 [facility] COLONOSCOPY (ENDO) 2022-11-13 12:28:[facility] EGD (ENDO) 2022-11-13 12:19:29 [facility] EGD (ENDO) 2022-11-13 12:19:29 [facility] EGD (ENDO) 2022-11-13 12:19:29 [facility] CONSENT/REFUSAL FOR DIAGNOSI S AND TREATMENT 2022-11-13 12:17:09 Doctor Unassigned, [place] [facility] CONSENT/REFUSAL FOR DIAGNOSI S AND TREATMENT 2022-11-13 12:17:09 Doctor Unassigned, [place] [facility] ASSIGNMENT OF BENEFITS 2022-11-13 11:59:03 Doctor Unassigned, [place] [facility] ASSIGNMENT OF BENEFITS 2022-11-13 11:59:03 Doctor Unassigned, [place] [facility] ENDOSCOPY PROCEDURE DOCUMENTATION 2022-02 0 05:01:00 Doctor Unassigned, [place] [facility] ENDOSCOPY PROCEDURE DOCUMENTATION 2022-02 002 05:01:00 Doctor Unassigned, [place] [facility] COMP. METABOLIC PANEL (48610) 2022-11-03 16:24:00 Dora Newman [facility] CBC WITH DIFF 2022-11-03 16:24:00 Dora Newman [facility] POCT TEST 2022-11-03 16:24:00 Dora Newman [facility] CBC WITH DIFF 2022-11-03 16:24:00 Dora Newman [facility] POCT TEST 2022-11-03 16:24:00 Dora Newman [facility] COMP. METABOLIC PANEL (25118) 2022-11-03 16:24:00 Dora Newman [facility] URINALYSIS 2022-11-03 16:18:00 Dora Newman [facility] URINALYSIS 2022-11-03 16:18:00 Dora Newman [facility] RAPID STREP SCREEN FOR GROUP A 2022-10-14 2 16:14:00 Dora Newman [facility] RAPID STREP SCREEN FOR GROUP A 2022-10-14 2 16:14:00 Dora Newman [facility] THROAT CULTURE 2022-11-03 16:14:00 Dora Newman [facility] CONSENT/REFUSAL FOR DIAGNOSI S AND TREATMENT 2022-11-03 15:27:05 Doctor Unassigned, [place] [facility] CONSENT/REFUSAL FOR DIAGNOSI S AND TREATMENT 2022-11-03 15:27:05 Doctor Unassigned, [place] [facility] EMERGENCY SERVICES AGREEMENT S AND AUTHORIZATIONS 2022-11-03 05:01:00 Doctor Unassigned, [place] [facility] HELICOBACTER PYLORI ANTIGEN, FECAL BY EIA 2022-10-19 13:44:00 Elidia Cordero [facility] HELICOBACTER PYLORI ANTIGEN, FECAL BY EIA 2022-10-19 13:44:00 Elidia Cordero [facility] FERRITIN SERUM 2022-10-19 13:35:00 Elidia Cordero [facility] IRON PANEL 2022-10-19 13:35:00 Elidia Cordero [facility] CELIAC SCREEN 2022-10-19 13:35:00 Elidia Cordero [facility] LAB ONLY CELIAC SCREEN IGA 2022-10-19 13:35:00 Elidia Cordero [facility] IRON PANEL 2022-10-19 13:35:00 Elidia Cordero [facility] CELIAC SCREEN 2022-10-19 13:35:00 Elidia Cordero [facility] FERRITIN SERUM 2022-10-19 13:35:00 Elidia Cordero [facility] LAB ONLY CELIAC SCREEN IGA 2022-10-19 13:35:00 Elidia Cordero [facility] DISCLOSURE AND CONSENT, [facility] JAVAD AND SURGICAL PROCEDURES 2022-10-19 05:01:00 Doctor Unassigned, [place] [facility] DISCLOSURE AND CONSENT, [facility] JAVAD AND SURGICAL PROCEDURES 2022-10-19 05:01:00 Doctor Unassigned, [place] [facility] REFERRAL- REQUEST/RESPONSE 2022-10-12 05:01:00 Doctor Unassigned, [place] [facility] REFERRAL- REQUEST/RESPONSE 2022-10-12 05:01:00 Doctor Unassigned, [place] [facility] THYROID STIMULATING HORMONE 2022-10-05 15:15:00 Rosalind Freed [facility] COMP. METABOLIC PANEL (30700) 2022-10-05 15:15:00 Freed, [facility] LIPID PANEL ([id number])(TOTAL CHOLESTEROL, TRIGLYCERIDES, HDL) 2022-10-05 15:15:00 Rosalind Freed [facility] LITHIUM 2022-10-05 15:15:00 Sara Hester [facility] CBC WITH DIFF 2022-10-05 15:15:00 Abdiaziz [facility] GLYCOSYLATED HEMOGLOBIN (A1C) 2022-10-05 15:15:00 Abdiaziz [facility] CBC WITH DIFF 2022-10-05 15:15:00 Abdiaziz [facility] COMP. METABOLIC PANEL ([id number]) 2022-10-05 15:15:00 Abdiaziz [facility] GLYCOSYLATED HEMOGLOBIN (A1C) 2022-10-05 15:15:00 Abdiaziz [facility] LIPID PANEL ([id number])(TOTAL CHOLESTEROL, TRIGLYCERIDES, HDL) 2022-10-05 15:15:00 Abdiaziz [facility] THYROID STIMULATING HORMONE 2022-10-05 15:15:00 Abdiaziz [facility] LITHIUM 2022-10-05 15:15:00 Sara Hester [facility] ASSIGNMENT OF BENEFITS 2022-10-04 14:17:30 Doctor Unassigned, [place] [facility] ASSIGNMENT OF BENEFITS 2022-10-04 14:17:30 Doctor Unassigned, [place] [facility] LITHIUM 2022-07-26 14:49:00 Angela Sage [facility] PATIENT FINANCIAL POLICY 2022-07-26 13:16:12 Doctor Unassigned, [place] [facility] PATIENT FINANCIAL POLICY 2022-07-26 13:16:12 Doctor Unassigned, [place] [facility] EXTERNAL PROVIDER RECORDS 2022-04-08 06:01:00 Doctor Unassigned, [place] [facility] EXTERNAL PROVIDER RECORDS 2022-04-08 06:01:00 Doctor Unassigned, [place] [facility] EXTERNAL PROVIDER RECORDS 2022-02-21 06:01:00 Doctor Unassigned, [place] [facility] EXTERNAL PROVIDER RECORDS 2022-02-21 06:01:00 Doctor Unassigned, [place] [facility] LITHIUM 2022-02-15 15:58:00 Angela Sage [facility] CONSENT/REFUSAL FOR DIAGNOSI S AND TREATMENT 2022-01-11 17:10:16 Doctor Unassigned, [place] [facility] CONSENT/REFUSAL FOR DIAGNOSI S AND TREATMENT 2022-01-11 17:10:16 Doctor Unassigned, [place] [facility] [facility] EXTERNAL PROVIDER RECORDS 2020-11-26 05:01:00 Doctor Unassigned, [place] [facility] Tubal Ligation 1999-02-12 00:00:00 [facility] Delivery [facility] ical Encounters Start Date/Time End Date/Time Encounter Type Admission Type Attending [facility] Facility Care Department Encounter ID Source 2024-04-15 13:23:01 Outpatient Jae Holloway [facility] [id number] [facility] 2024-02-21 16:09:00 Outpatient Jae Holloway [facility] [id number] [facility] 2024-02-15 10:03:00 Outpatient Jae Holloway [facility] [id number] [facility] 2023-12-14 15:51:00 Outpatient Jae Holloway [facility] [id number] [facility] 2023-11-27 15:05:01 Outpatient Jae Holloway [facility] [id number] [facility] 2020-12-13 10:09:54 Emergency [facility] [id number] [facility] 2020-12-11 04:02:45 Emergency [facility] [id number] [facility] 2024-04-07 08:45:00 2024-04-07 08:45:00 Outpatient DAVIDSON MEYER [facility] [id number] [facility] 2024-04-03 00:00:00 2024-04-03 00:00:00 Travel 1.2.840.1 73124.1.1 3.104.2.7 .3.243276 .8 1.2.840.114 350.1.13.10 4.2.7.3.698 084.8 [id number] [facility] 2024-04-03 00:00:00 2024-04-03 00:00:00 ABAD Aleman: [address], [place] [id number] , Ph. [facility] - GC_GCBZW_Gi [place]* [id number] [facility] 2024-04-02 00:00:00 2024-04-02 00:00:00 Outpatient Visit [facility] [id number] Robert Ambrose Loraine 2024-03-24 08:59:35 2024-03-24 08:59:[address] [facility] [id number] Robert Ambrose Loraine 2024-03-19 09:33:08 2024-03-19 09:33:[address] [facility] [id number] Robert Ambrose Loraine 2024-03-19 00:00:00 2024-03-19 00:00:00 Outpatient Visit SFA [id number] Robert Ambrose Loraine 2024-03-11 09:00:00 2024-03-11 09:00:00 Outpatient R [facility] [id number] [facility] 2024-03-07 00:00:00 2024-03-07 00:00:00 Talisha Chan MD: [address], [place] [id number] , Ph. [facility] GC_GCBZW_[place]* [id number] [facility] 2024-02-20 00:00:00 2024-02-20 00:00:00 MARC Arteaga: [address], [place] [address] , Ph. [facility] - GC_GCBZW_[place]* [id number] [facility] 2024-02-08 00:00:00 2024-02-08 00:00:00 Talisha Chan MD: [address], [place] [address] , Ph. [facility] - GC_GCBZW_La tariq [place]* [id number] [facility] 2024-01-30 14:39:39 2024-01-30 14:39:[address] [facility] [id number] Robert Cali 2024-01-30 00:00:00 2024-01-30 00:00:00 Outpatient Visit SFA [id number] Robert Cali 2024-01-28 13:45:00 2024-01-28 13:45:00 Outpatient R [facility] [id number] [facility] 2024-01-25 00:00:00 2024-01-25 00:00:00 Travel 1.2.840.1 12412.1.1 3.104.2.7 .3.462435 .8 1.2.840.114 350.1.13.10 4.2.7.3.698 084.8 [id number] [facility] 2024-01-24 00:00:00 2024-01-24 00:00:00 Talisha Chan MD: [address], [place] [phone] , Ph. [facility] - GC_GCBZW_Gi tariq [place]* [id number] [facility] 2024-01-23 00:00:00 2024-01-23 00:00:00 Talisha Chan MD: [address], [place] [address] , Ph. [facility] - GC_GCBZW_Gi tariq [place]* [id number] [facility] 2024-01-22 09:30:00 2024-01-22 09:30:00 Outpatient R [facility] [id number] [facility] 2024-01-18 00:00:00 2024-01-18 00:00:00 Outpatient Visit SFA [id number] Robert Cali 2024-01-13 00:00:00 2024-01-13 00:00:00 Travel 1.2.840.1 06335.1.1 3.104.2.7 .3.717847 .8 1.2.840.114 350.1.13.10 4.2.7.3.698 084.8 [id number] [facility] 2024-01-04 16:41:03 2024-01-04 16:41:03 Outpatient SFA [facility] [id number] Robert Cali 2024-01-04 00:00:00 2024-01-04 00:00:00 Outpatient Visit SFA [id number] Robert Cali 2023-12-31 00:00:00 2023-12-31 00:00:00 (TEL) CLS CLS [id number] [facility] 2023-12-26 08:50:25 2023-12-26 08:50:25 Outpatient SFA [facility] [id number] Robert Cali 2023-12-19 10:24:52 2023-12-19 10:24:52 Outpatient SFA [facility] [id number] Robert Cali 2023-12-12 00:00:00 2023-12-12 00:00:00 (TEL) CLS CLS [id number] [facility] 2023-12-12 00:00:00 2023-12-12 00:00:00 (TEL) CLS CLS [id number] [facility] 2023-12-11 16:28:54 2023-12-11 16:28:54 Outpatient SFA SFA [id number] Robert Cali 2023-12-11 00:00:00 2023-12-11 00:00:00 Outpatient Visit SFA [id number] Robert Cali 2023-12-10 00:00:00 2023-12-10 00:00:00 (TEL) CLS CLS [id number] [facility] 2023-12-08 00:00:00 2023-12-08 00:00:00 (CLS/MRI) MRI Scan CLS CLS [id number] [facility] 2023-12-05 13:46:14 2023-12-05 13:46:14 Outpatient SFA SFA [id number] Robert Cali 2023-11-30 00:00:00 2023-11-30 00:00:00 (TEL) CLS CLS [id number] [facility] 2023-11-29 00:00:00 2023-11-29 00:00:00 (EEG) EEG CLS CLS [id number] [facility] 2023-11-29 00:00:00 2023-11-29 00:00:00 (EMG) EMG CLS CLS [id number] [facility] 2023-11-27 08:13:37 2023-11-27 08:13:37 Outpatient SFA SFA [id number] Robert Cali 2023-11-27 00:00:00 2023-11-27 00:00:00 Office Visit- Est Pt.- Level 4 CLS CLS [id number] [facility] 2023-11-27 00:00:00 2023-11-27 00:00:00 (TEL) CLS CLS [id number] [facility] 2023-11-27 00:00:00 2023-11-27 00:00:00 Outpatient Visit SFA [id number] Robert Cali 2023-10-09 00:00:00 2023-11-10 18:22:03 Patient Secure Msg Doctor Unassigned, [place] 1.2.840.1 13762.1.1 3.104.2.7 .3.911629 .8 [id number] [facility] 2023-11-06 13:51:42 2023-11-06 13:51:42 Outpatient [facility] [id number] Robert Cali 2023-10-02 00:00:00 2023-11-03 18:20:51 Patient Secure Msg Doctor Unassigned, [place] 1.2.840.1 95150.1.1 3.104.2.7 .3.978319 .8 [id number] [facility] 2023-09-28 00:00:00 2023-10-02 12:14:38 Patient Secure Msg Tavon Dumont 1.2.840.1 31393.1.1 3.104.2.7 .3.979254 .8 [id number] [facility] 2023-09-03 09:30:00 2023-09-03 11:20:53 Outpatient ALESHA AMBRIZ [facility] [id number] [facility] 2023-09-03 00:00:00 2023-09-03 00:00:00 Travel 1.2.840.1 24150.1.1 3.104.2.7 .3.432632 .8 1.2.840.114 350.1.13.10 4.2.7.3.698 084.8 [id number] [facility] 2023-08-31 00:00:00 2023-08-31 00:00:00 Travel 1.2.840.1 53801.1.1 3.104.2.7 .3.195978 .8 1.2.840.114 350.1.13.10 4.2.7.3.698 084.8 [id number] [facility] 2023-08-27 08:00:00 2023-08-27 08:00:00 Outpatient ALESHA AMBRIZ [facility] [id number] [facility] 2023-08-24 00:00:00 2023-08-24 00:00:00 Travel 1.2.840.1 84120.1.1 3.104.2.7 .3.978812 .8 1.2.840.114 350.1.13.10 4.2.7.3.698 084.8 [id number] [facility] 2023-08-08 00:00:00 2023-08-08 12:08:14 Case Management Sharona Corderoklarissakarl [place] 1.2.840.1 95186.1.1 3.104.2.7 .3.003125 .8 [id number] [facility] 2023-07-02 00:00:00 2023-08-04 18:20:55 Patient Secure Msg Dominic Keita 1.2.840.1 11072.1.1 3.104.2.7 .3.530226 .8 [id number] [facility] 2023-08-03 00:00:00 2023-08-03 08:18:24 Telephone Sharona Corderoklarissakarl [place] 1.2.840.1 51219.1.1 3.104.2.7 .3.140891 .8 [id number] [facility] 2023-07-30 00:00:00 2023-07-30 15:44:55 Telephone Sharona Corderoklarissakarl [place] 1.2.840.1 21461.1.1 3.104.2.7 .3.061305 .8 [id number] [facility] 2023-07-26 09:30:00 2023-07-26 10:00:00 Office Visit Jose Westbrook Abdullah Azzam 1.2.840.1 52623.1.1 3.104.2.7 .3.592462 .8 [id number] [facility] 2023-07-26 09:30:00 2023-07-26 09:30:00 Outpatient JOSE TRAN [facility] [id number] [facility] 2023-07-26 00:00:00 2023-07-26 00:00:00 Travel 1.2.840.1 10611.1.1 3.104.2.7 .3.038688 .8 1.2.840.114 350.1.13.10 4.2.7.3.698 084.8 [id number] [facility] 2023-07-18 10:15:00 2023-07-18 10:15:00 Outpatient R KOMALFARZANA [facility] [id number] [facility] 2023-07-16 00:00:00 2023-07-16 00:00:00 Travel 1.2.840.1 69337.1.1 3.104.2.7 .3.091637 .8 1.2.840.114 350.1.13.10 4.2.7.3.698 084.8 [id number] [facility] 2023-07-02 00:00:00 2023-07-02 12:41:14 Telephone Elidia Cordero 1.2.840.1 92826.1.1 3.104.2.7 .3.680165 .8 [id number] [facility] 2023-06-13 00:00:00 2023-06-13 10:19:53 Letter (Out) 1.2.840.1 89415.1.1 3.104.2.7 .3.818716 .8 [id number] [facility] 2023-06-07 21:35:00 2023-06-08 02:20:00 Emergency X MARYSOL PABON [facility] ERT [id number] [facility] 2023-06-07 21:35:00 2023-06-08 02:20:00 Emergency Marysol Pabon Whitney T 1.2.840.1 68576.1.1 3.104.2.7 .3.898537 .8 [id number] [facility] 2023-06-07 00:00:00 2023-06-07 00:00:00 Travel 1.2.840.1 42147.1.1 3.104.2.7 .3.301079 .8 1.2.840.114 350.1.13.10 4.2.7.3.698 084.8 [id number] [facility] 2023-05-29 00:00:00 2023-06-04 10:54:35 Patient Secure Msg OnurfidelinaDominic hicks 1.2.840.1 75551.1.1 3.104.2.7 .3.676507 .8 [id number] [facility] 2023-05-28 08:45:00 2023-05-28 08:45:00 Outpatient DAVIDSON MEYER [facility] [id number] [facility] 2023-05-25 00:00:00 2023-05-25 00:00:00 Travel 1.2.840.1 03072.1.1 3.104.2.7 .3.169562 .8 1.2.840.114 350.1.13.10 4.2.7.3.698 084.8 [id number] [facility] 2023-05-22 08:17:37 2023-05-22 08:17:[address] [facility] [id number] Robert Cali 2023-05-11 00:00:00 2023-05-11 17:06:28 Telephone Elidia Cordero 1.2.840.1 47432.1.1 3.104.2.7 .3.999688 .8 [id number] [facility] 2023-05-09 00:00:00 2023-05-09 17:14:57 Patient Secure Msg OnurfidelinaKaur hickseram 1.2.840.1 52731.1.1 3.104.2.7 .3.642645 .8 [id number] [facility] 2023-05-08 10:00:00 2023-05-08 10:00:00 Outpatient R EMILIA SNOWDEN [facility] [id number] [facility] 2023-03-28 00:00:00 2023-04-28 18:05:02 Patient Secure Msg Doctor Unassigned, [place] 1.2.840.1 80467.1.1 3.104.2.7 .3.723059 .8 [id number] [facility] 2023-04-18 08:00:00 2023-04-18 08:00:00 Outpatient R FARZANA SAUCEDA [facility] [id number] [facility] 2023-04-17 00:00:00 2023-04-17 00:00:00 Travel 1.2.840.1 46829.1.1 3.104.2.7 .3.396208 .8 1.2.840.114 350.1.13.10 4.2.7.3.698 084.8 [id number] [facility] 2023-04-11 13:00:00 2023-04-11 13:00:00 Outpatient R EMILIA SNOWDEN [facility] [id number] [facility] 2023-04-11 13:00:00 2023-04-11 13:00:00 Outpatient R EMILIA SNOWDEN [facility] [id number] [facility] 2023-04-04 08:00:00 2023-04-04 08:00:00 Outpatient R [facility] [id number] [facility] 2023-04-02 00:00:00 2023-04-02 00:00:00 Travel 1.2.840.1 50752.1.1 3.104.2.7 .3.109731 .8 1.2.840.114 350.1.13.10 4.2.7.3.698 084.8 [id number] [facility] 2023-03-09 00:00:00 2023-03-09 00:00:00 Telephone Elidia Cordero 1.2.840.1 90214.1.1 3.104.2.7 .3.353613 .8 [id number] [facility] 2023-03-08 00:00:00 2023-03-08 00:00:00 Telephone Elidia Cordero 1.2.840.1 01769.1.1 3.104.2.7 .3.824775 .8 [id number] [facility] 2023-02-28 10:15:00 2023-02-28 10:15:00 Outpatient SARA DELGADILLO KIMBERLY [facility] [id number] [facility] 2023-02-27 00:00:00 2023-02-27 00:00:00 Travel 1.2.840.1 56368.1.1 3.104.2.7 .3.232217 .8 1.2.840.114 350.1.13.10 4.2.7.3.698 084.8 [id number] [facility] 2023-02-15 10:30:00 2023-02-15 10:45:00 Solution Manager Visit Jewel Cunha [facility] 1.2.840.1 00186.1.1 3.104.2.7 .3.420717 .8 [id number] [facility] 2023-02-15 09:30:00 2023-02-15 10:00:00 Office Visit Jewel Cunha Abdullah Azzam 1.2.840.1 72225.1.1 3.104.2.7 .3.213010 .8 [id number] [facility] 2023-02-15 09:30:00 2023-02-15 09:30:00 Outpatient JEWEL JARVIS [facility] [id number] [facility] 2023-02-15 00:00:00 2023-02-15 00:00:00 Travel 1.2.840.1 52252.1.1 3.104.2.7 .3.358644 .8 1.2.840.114 350.1.13.10 4.2.7.3.698 084.8 [id number] [facility] 2023-01-23 13:00:00 2023-01-23 13:00:00 Outpatient R JENNY ARRIAGA RIZWAN [facility] [id number] [facility] 2023-01-22 10:15:00 2023-01-22 10:30:00 Solution Manager Visit Dexter Dias [facility] 1.2.840.1 43872.1.1 3.104.2.7 .3.695257 .8 [id number] [facility] 2023-01-22 09:30:00 2023-01-22 10:07:50 Outpatient R DEXTER DIAS [facility] [id number] [facility] 2023-01-22 00:00:00 2023-01-22 00:00:00 Orders Only Doctor Unassigned, [place] 1.2.840.1 55023.1.1 3.104.2.7 .3.574567 .8 [id number] [facility] 2023-01-22 00:00:00 2023-01-22 00:00:00 Travel 1.2.840.1 58334.1.1 3.104.2.7 .3.488464 .8 1.2.840.114 350.1.13.10 4.2.7.3.698 084.8 [id number] [facility] 2023-01-15 00:00:00 2023-01-15 00:00:00 Telephone Elidia Cordero 1.2.840.1 93937.1.1 3.104.2.7 .3.934625 .8 [id number] [facility] 2023-01-12 00:00:00 2023-01-12 00:00:00 Patient Secure Domiinc Ly 1.2.840.1 06533.1.1 3.104.2.7 .3.137055 .8 [id number] [facility] 2022-12-29 09:30:00 2022-12-29 09:30:00 Outpatient R JENNY ARRIAGA RIZWAN [facility] [id number] [facility] 2022-12-29 00:00:00 2022-12-29 00:00:00 Telephone Saschaanakarl Elidia Gamble 1.2.840.1 18411.1.1 3.104.2.7 .3.767067 .8 [id number] [facility] 2022-12-29 00:00:00 2022-12-29 00:00:00 Telephone Sharona Corderoklarissakarl [place] 1.2.840.1 23435.1.1 3.104.2.7 .3.788827 .8 [id number] [facility] 2022-12-28 00:00:00 2022-12-28 00:00:00 Case Management Sharona Corderokarl [place] 1.2.840.1 25662.1.1 3.104.2.7 .3.377324 .8 [id number] [facility] 2022-12-20 16:00:00 2022-12-20 16:46:31 Outpatient R [facility] [id number] [facility] 2022-12-20 09:49:08 2022-12-20 09:49:[address] [facility] [id number] Robert Cali 2022-12-19 00:00:00 2022-12-19 00:00:00 Travel 1.2.840.1 79739.1.1 3.104.2.7 .3.686331 .8 1.2.840.114 350.1.13.10 4.2.7.3.698 084.8 [id number] [facility] 2022-12-18 09:30:00 2022-12-18 09:30:00 Outpatient R [facility] [id number] [facility] 2022-12-18 00:00:00 2022-12-18 00:00:00 Telephone ConsueloElidia 1.2.840.1 02387.1.1 3.104.2.7 .3.604911 .8 [id number] [facility] 2022-12-14 00:00:00 2022-12-14 00:00:00 Patient Secure Msg Doctor Unassigned, [place] 1..840.1 98521.1.1 3.104.2.7 .3.646260 .8 [id number] [facility] 2022-12-11 08:45:00 2022-12-11 08:45:00 Outpatient R [facility] [id number] [facility] 2022-12-10 00:00:00 2022-12-10 00:00:00 Outpatient GC_GCBZW_Ka diyala_S PRIV [facility] [id number] [facility] 2022-12-08 15:30:00 2022-12-08 15:30:00 Outpatient R JENNY ARRIAGA RIZWAN [facility] [id number] [facility] 2022-12-06 08:00:00 2022-12-06 08:00:00 Outpatient R ONEIDA MONTANA [facility] [id number] [facility] 2022-11-29 00:00:00 2022-11-29 00:00:00 Telephone VanessakarlElidia 1.2.840.1 71307.1.1 3.104.2.7 .3.603683 .8 [id number] [facility] 2022-11-27 00:00:00 2022-11-27 00:00:00 Telephone Elidia Cordero 1.2.840.1 80635.1.1 3.104.2.7 .3.168141 .8 [id number] [facility] 2022-11-27 00:00:00 2022-11-27 00:00:00 Telephone Elidia Cordero 1.2.840.1 21957.1.1 3.104.2.7 .3.292040 .8 [id number] [facility] 2022-11-23 00:00:00 2022-11-23 00:00:00 Telephone Elidia Cordero 1.2.840.1 76596.1.1 3.104.2.7 .3.227720 .8 [id number] [facility] 2022-11-23 00:00:00 2022-11-23 00:00:00 Telephone Elidia Cordero 1.2.840.1 27226.1.1 3.104.2.7 .3.709153 .8 [id number] [facility] 2022-11-22 09:30:00 2022-11-22 09:30:00 Outpatient R [facility] [id number] [facility] 2022-11-16 00:00:00 2022-11-16 00:00:00 Telephone Elidia Cordero 1.2.840.1 17838.1.1 3.104.2.7 .3.567047 .8 [id number] [facility] 2022-11-16 00:00:00 2022-11-16 00:00:00 Patient Secure Msg Dominic Keita 1.2.840.1 31282.1.1 3.104.2.7 .3.862141 .8 [id number] [facility] 2022-11-13 06:59:00 2022-11-13 09:48:00 Outpatient [facility] [id number] [facility] 2022-11-13 06:59:00 2022-11-13 09:48:00 Hospital Encounter Dominic Keita 1.2.840.1 53181.1.1 3.104.2.7 .3.229275 .8 [id number] [facility] 2022-11-13 07:58:00 2022-11-13 08:33:00 Anesthesia Event Hunter Cruz Joan 1.2.840.1 88340.1.1 3.104.2.7 .3.588999 .8 [id number] [facility] 2022-11-13 07:15:00 2022-11-13 08:15:00 Surgery Dominic Keita 1.2.840.1 50741.1.1 3.104.2.7 .3.033501 .8 [id number] [facility] 2022-11-13 00:00:00 2022-11-13 00:00:00 Orders Only Doctor Unassigned, [place] 1.2.840.1 04777.1.1 3.104.2.7 .3.793451 .8 [id number] [facility] 2022-11-13 00:00:00 2022-11-13 00:00:00 Telephone Dominic Keita 1.2.840.1 51693.1.1 3.104.2.7 .3.341858 .8 [id number] [facility] 2022-11-13 00:00:00 2022-11-13 00:00:00 Travel 1.2.840.1 82750.1.1 3.104.2.7 .3.464552 .8 1.2.840.114 350.1.13.10 4.2.7.3.698 084.8 [id number] [facility] 2022-11-10 00:00:00 2022-11-10 00:00:00 Outpatient R RADIOLOGY [facility] [id number] [facility] 2022-11-10 00:00:00 2022-11-10 00:00:00 Patient Secure Msg Dominic Keita 1.2.840.1 57031.1.1 3.104.2.7 .3.186616 .8 [id number] [facility] 2022-11-09 00:00:00 2022-11-09 00:00:00 Patient Secure Msg Doctor Unassigned, [place] 1.2.840.1 76961.1.1 3.104.2.7 .3.369261 .8 [id number] [facility] 2022-11-07 00:00:00 2022-11-07 00:00:00 Patient Secure Msg Doctor Unassigned, [place] 1.2.840.1 51238.1.1 3.104.2.7 .3.241610 .8 [id number] [facility] 2022-11-03 10:36:00 2022-11-03 13:16:00 Emergency X [facility] ERT [id number] [facility] 2022-11-03 10:36:00 2022-11-03 13:16:00 Emergency Deloris Dora G 1.2.840.1 17151.1.1 3.104.2.7 .3.269268 .8 [id number] [facility] 2022-11-03 00:00:00 2022-11-03 00:00:00 Travel 1.2.840.1 39836.1.1 3.104.2.7 .3.199094 .8 1.2.840.114 350.1.13.10 4.2.7.3.698 084.8 [id number] [facility] 2022-10-30 00:00:00 2022-10-30 00:00:00 Case Management Sharona Corderoklarissakarl Mavis 1.2.840.1 21927.1.1 3.104.2.7 .3.561954 .8 [id number] [facility] 2022-10-19 08:30:00 2022-10-19 08:45:00 Solution Manager Visit Jewel Cunha [facility] 1.2.840.1 24735.1.1 3.104.2.7 .3.291258 .8 [id number] [facility] 2022-10-19 07:30:00 2022-10-19 08:15:30 Outpatient R JEWEL CUNHA [facility] [id number] [facility] 2022-10-19 07:30:00 2022-10-19 08:15:30 Office Visit Jewel Cunha Abdullah Azzam 1.2.840.1 71401.1.1 3.104.2.7 .3.061311 .8 [id number] [facility] 2022-10-19 00:00:00 2022-10-19 00:00:00 Orders Only Doctor Unassigned, [place] 1.2.840.1 06403.1.1 3.104.2.7 .3.924110 .8 [id number] [facility] 2022-10-18 00:00:00 2022-10-18 00:00:00 Travel 1.2.840.1 37371.1.1 3.104.2.7 .3.543495 .8 1.2.840.114 350.1.13.10 4.2.7.3.698 084.8 [id number] [facility] 2022-10-12 09:56:06 2022-10-12 09:56:06 Outpatient [facility] [id number] Robert Cali 2022-10-12 00:00:00 2022-10-12 00:00:00 Orders Only Doctor Unassigned, [place] 1.2.840.1 97034.1.1 3.104.2.7 .3.876765 .8 [id number] [facility] 2022-10-05 10:15:00 2022-10-05 10:30:00 Solution Manager Visit Kath Vences, [facility] 1.2.840.1 36527.1.1 3.104.2.7 .3.274752 .8 [id number] [facility] 2022-10-05 10:15:00 2022-10-05 10:15:00 Outpatient R KATH VENCES [facility] [id number] [facility] 2022-10-04 09:30:00 2022-10-04 10:30:11 Outpatient R DEXTER DIAS [facility] [id number] [facility] 2022-10-04 00:00:00 2022-10-04 00:00:00 Orders Only Doctor Unassigned, [place] 1.2.840.1 04124.1.1 3.104.2.7 .3.454229 .8 [id number] [facility] 2022-10-04 00:00:00 2022-10-04 00:00:00 Travel 1.2.840.1 33024.1.1 3.104.2.7 .3.735306 .8 1.2.840.114 350.1.13.10 4.2.7.3.698 084.8 [id number] [facility] 2022-10-02 00:00:00 2022-10-02 00:00:00 Travel 1.2.840.1 58184.1.1 3.104.2.7 .3.876668 .8 1.2.840.114 350.1.13.10 4.2.7.3.698 084.8 [id number] [facility] 2022-09-06 08:45:00 2022-09-06 08:45:00 Outpatient SARA DELGADILLO KIMBERLY [facility] [id number] [facility] 2022-09-06 00:00:00 2022-09-06 00:00:00 Travel 1.2.840.1 22386.1.1 3.104.2.7 .3.116589 .8 1.2.840.114 350.1.13.10 4.2.7.3.698 084.8 [id number] [facility] 2022-07-26 11:00:00 2022-07-26 11:15:00 Solution Manager Visit Pathology [facility] 1.2.840.1 76561.1.1 3.104.2.7 .3.235218 .8 [id number] [facility] 2022-07-26 08:45:00 2022-07-26 09:37:46 Outpatient SARA DELGADILLO KIMBERLY [facility] [id number] [facility] 2022-07-26 00:00:00 2022-07-26 00:00:00 Orders Only Doctor Unassigned, [place] 1.2.840.1 89363.1.1 3.104.2.7 .3.967741 .8 [id number] [facility] 2022-07-26 00:00:00 2022-07-26 00:00:00 Travel 1.2.840.1 00733.1.1 3.104.2.7 .3.998802 .8 1.2.840.114 350.1.13.10 4.2.7.3.698 084.8 [id number] [facility] 2022-07-24 13:24:12 2022-07-24 13:24:12 Outpatient SFA [facility] [id number] Robert F Viraj 2022-06-27 13:49:18 2022-06-27 13:49:18 Outpatient SFA SFA [id number] 0516 Robert Cali 2022-06-21 08:52:50 2022-06-21 08:52:50 Outpatient [facility] [id number] Robert Cali 2022-06-15 15:23:34 2022-06-15 15:23:34 Outpatient [facility] [id number] Robert Cali 2022-05-31 08:45:00 2022-05-31 08:45:00 Outpatient SARA DELGADILLO [facility] [id number] [facility] 2022-05-30 11:55:27 2022-05-30 11:55:27 Outpatient [facility] [id number] Robert Cali 2022-05-23 11:17:29 2022-05-23 11:17:29 Outpatient [facility] [id number] Robert Ambrose Viraj 2022-05-12 08:06:11 2022-05-12 08:06:11 Outpatient [facility] [id number] Robert Ambrose Viraj 2022-05-11 13:45:44 2022-05-11 13:45:44 Outpatient [facility] [id number] Robert Ambrose Viraj 2022-04-08 00:00:00 2022-04-08 00:00:00 Orders Only Doctor Unassigned, [place] 1.2.840.1 46571.1.1 3.104.2.7 .3.826775 .8 [id number] [facility] 2022-02-21 00:00:00 2022-02-21 00:00:00 Orders Only Doctor Unassigned, [place] 1.2.840.1 17016.1.1 3.104.2.7 .3.877401 .8 [id number] [facility] 2022-02-15 13:30:00 2022-02-15 13:45:00 Solution Manager Visit Pathology Pcp-Lab 1.2.840.1 28479.1.1 3.104.2.7 .3.936565 .8 [id number] [facility] 2022-02-15 08:45:00 2022-02-15 10:52:26 Outpatient DEXTER MIRELES [facility] [id number] [facility] 2022-02-15 00:00:00 2022-02-15 00:00:00 Travel 1.2.840.1 59183.1.1 3.104.2.7 .3.711296 .8 1.2.840.114 350.1.13.10 4.2.7.3.698 084.8 [id number] [facility] 2022-01-11 11:00:00 2022-01-11 12:39:46 Outpatient SARA DELGADILLO [facility] [id number] [facility] 2022-01-11 00:00:00 2022-01-11 00:00:00 Orders Only Doctor Unassigned, [place] 1.2.840.1 35674.1.1 3.104.2.7 .3.714378 .8 [id number] [facility] 2022-01-11 00:00:00 2022-01-11 00:00:00 Travel 1.2.840.1 64834.1.1 3.104.2.7 .3.026283 .8 1.2.840.114 350.1.13.10 4.2.7.3.698 084.8 [id number] [facility] 2021-11-24 09:30:00 2021-11-24 09:30:00 Outpatient IGOR Castaneda RAI [facility] [id number] [facility] 2021-11-16 11:00:00 2021-11-16 11:00:00 Outpatient SARA DELGADILLO [facility] [id number] [facility] 2021-10-26 08:00:00 2021-10-26 08:00:00 Outpatient DEXTER MIRELES [facility] [id number] [facility] 2021-10-20 10:00:00 2021-10-20 10:00:00 Outpatient R IGOR SAAVEDRA [facility] [id number] [facility] 2021-10-03 14:30:00 2021-10-03 14:30:00 Outpatient R DAVIDSON SUTHERLAND [facility] [id number] [facility] 2021-09-21 09:30:00 2021-09-21 09:30:00 Outpatient R DEXTER DIAS [facility] [id number] [facility] 2021-08-24 09:30:00 2021-08-24 10:41:34 [facility] [id number] [facility] 2021-08-24 00:00:00 2021-08-24 00:00:00 Travel 1.2.840.1 72387.1.1 3.104.2.7 .3.563537 .8 1.2.840.114 350.1.13.10 4.2.7.3.698 084.8 [id number] [facility] 2021-07-25 09:00:00 2021-07-25 09:00:00 Outpatient R DEXTER DIAS [facility] [id number] [facility] 2021-06-22 11:15:00 2021-06-22 12:18:05 Outpatient R SARA HESTER [facility] [id number] [facility] 2021-06-22 11:15:00 2021-06-22 11:15:00 Outpatient R SARA HESTER [facility] [id number] [facility] 2021-06-22 00:00:00 2021-06-22 00:00:00 Travel 1.2.840.1 85461.1.1 3.104.2.7 .3.341754 .8 1.2.840.114 350.1.13.10 4.2.7.3.698 084.8 [id number] [facility] 2021-06-20 11:15:00 2021-06-20 11:15:00 [facility] [id number] [facility] 2021-06-20 11:15:00 2021-06-20 11:15:00 Outpatient R DEXTER DIAS [facility] [id number] [facility] 2021-06-08 09:20:00 2021-06-08 09:20:00 Outpatient R HILARY MOORE STRAHIL [facility] [id number] [facility] 2021-06-08 00:00:00 2021-06-08 00:00:00 Patient Secure Igor William Rai [facility] 1.2.840.114 350.1.13.10 4.2.7.2.686 [id number] [facility] 2021-06-07 09:13:00 2021-06-07 10:50:00 Emergency X [facility] E[facility] [id number] [facility] 2021-06-07 09:13:00 2021-06-07 10:50:00 Emergency Gigi Monroy [facility] 1.2.840.114 350.1.13.10 4.2.7.2.686 [id number] [facility] 2021-06-07 09:13:00 2021-06-07 10:50:00 Emergency Chinmay Monroyip 1.2.840.1 28373.1.1 3.104.2.7 .3.808091 .8 [id number] [facility] 2021-06-07 00:00:00 2021-06-07 00:00:00 Outpatient R IGOR SAAVEDRA [facility] [id number] [facility] 2021-06-07 00:00:00 2021-06-07 00:00:00 Orders Only Doctor Unassigned, [place] [facility] 1.2.840.114 350.1.13.10 4.2.7.2.686 [id number] [facility] 2021-06-07 00:00:00 2021-06-07 00:00:00 Travel 1.2.840.1 10954.1.1 3.104.2.7 .3.095538 .8 1.2.840.114 350.1.13.10 4.2.7.3.698 084.8 [id number] [facility] 2021-06-07 00:00:00 2021-06-07 00:00:00 Orders Only Doctor Unassigned, [place] 1.2.840.1 58634.1.1 3.104.2.7 .3.805851 .8 [id number] [facility] 2021-06-03 00:00:00 2021-06-03 00:00:00 Travel 1.2.840.1 77506.1.1 3.104.2.7 .3.265921 .8 1.2.840.114 350.1.13.10 4.2.7.3.698 084.8 [id number] [facility] 2021-05-27 00:00:00 2021-05-27 00:00:00 Outpatient IGOR Castaneda RAI [facility] [id number] [facility] 2021-05-27 00:00:00 2021-05-27 00:00:00 Outpatient IGOR Castaneda RAI [facility] [id number] [facility] 2021-05-25 00:00:00 2021-05-25 00:00:00 Patient Secure Msg Doctor Unassigned, [place] [facility] 1.2.840.114 350.1.13.10 4.2.7.2.686 [id number] [facility] 2021-05-25 00:00:00 2021-05-25 00:00:00 Patient Secure Msg Doctor Unassigned, [place] 1.2.840.1 27991.1.1 3.104.2.7 .3.003819 .8 [id number] [facility] 2021-05-20 00:00:00 2021-05-20 00:00:00 Telephone Zane Martinez 1.2.840.1 15298.1.1 3.104.2.7 .3.342954 .8 [id number] [facility] 2021-05-20 00:00:00 2021-05-20 00:00:00 Telephone Zane Martinez 1.2.840.1 77425.1.1 3.104.2.7 .3.549408 .8 [id number] [facility] 2021-05-18 00:00:00 2021-05-18 00:00:00 Travel 1.2.840.1 59354.1.1 3.104.2.7 .3.203222 .8 1.2.840.114 350.1.13.10 4.2.7.3.698 084.8 [id number] [facility] 2021-05-18 00:00:00 2021-05-18 00:00:00 Travel 1.2.840.1 60837.1.1 3.104.2.7 .3.793542 .8 1.2.840.114 350.1.13.10 4.2.7.3.698 084.8 [id number] [facility] 2021-05-17 13:15:00 2021-05-17 13:30:00 Solution Manager Visit Pcp-Lab Igor Saavedra [facility] 1.2.840.114 350.1.13.10 4.2.7.2.686 [id number] [facility] 2021-05-17 13:15:00 2021-05-17 13:30:00 Solution Manager Visit Igor Saavedra Pcp-Lab 1.2.840.1 92169.1.1 3.104.2.7 .3.130110 .8 [id number] [facility] 2021-05-17 13:15:00 2021-05-17 13:30:00 Solution Manager Visit Igor Saavedra Pcp-Lab 1.2.840.1 90452.1.1 3.104.2.7 .3.630697 .8 [id number] [facility] 2021-05-17 09:00:00 2021-05-17 10:25:05 Outpatient R IGOR SAAVEDRA [facility] [id number] [facility] 2021-05-17 09:00:00 2021-05-17 10:25:05 Office Visit Igor Saavedra Neeharika 1.2.840.1 03701.1.1 3.104.2.7 .3.576549 .8 [id number] [facility] 2021-05-17 09:00:00 2021-05-17 10:25:05 Outpatient R IGOR SAAVEDRA [facility] [id number] [facility] 2021-05-17 09:30:00 2021-05-17 09:30:00 Outpatient R IGOR SAAVEDRA [facility] [id number] [facility] 2021-05-17 00:00:00 2021-05-17 00:00:00 Travel 1.2.840.1 23077.1.1 3.104.2.7 .3.300392 .8 1.2.840.114 350.1.13.10 4.2.7.3.698 084.8 [id number] [facility] 2021-05-17 00:00:00 2021-05-17 00:00:00 Travel 1.2.840.1 32836.1.1 3.104.2.7 .3.918658 .8 ..840.114 350.1.13.10 4.2.7.3.698 084.8 [id number] [facility] 2021-04-26 09:00:00 2021-04-26 09:00:00 Outpatient R [facility] [id number] [facility] 2021-04-26 09:00:00 2021-04-26 09:00:00 Outpatient R WENDY, AVELINO [facility] [id number] [facility] 2021-04-20 08:45:00 2021-04-20 08:45:00 Outpatient R SARA HESTER [facility] [id number] [facility] 2021-04-11 08:40:00 2021-04-11 08:40:00 Outpatient SALLY FIGUEROA HOWARD [facility] [id number] [facility] 2021-04-11 08:40:00 2021-04-11 08:40:00 Outpatient SALLY FIGUEROA HOWARD [facility] [id number] [facility] 2021-03-21 08:00:00 2021-03-21 08:00:00 Outpatient SALLY FIGUEROA HOWARD [facility] [id number] [facility] 2021-03-17 00:00:00 2021-03-17 00:00:00 Patient Secure Msg Doctor Unassigned, [place] [facility] 1..840.114 350.1.13.10 4.2.7.2.686 [id number] [facility] 2021-03-17 00:00:00 2021-03-17 00:00:00 Patient Secure Msg Doctor Unassigned, [place] 1..840.1 15843.1.1 3.104.2.7 .3.879416 .8 [id number] [facility] 2021-03-17 00:00:00 2021-03-17 00:00:00 Patient Secure Msg Doctor Unassigned, [place] 1.2840.1 89340.1.1 3.104.2.7 .3.559875 .8 [id number] [facility] 2021-03-16 13:15:00 2021-03-16 13:30:00 Solution Manager Visit Salbador [place] Pcp-Lab 1.2840.1 28732.1.1 3.104.2.7 .3.035566 .8 [id number] [facility] 2021-03-16 13:15:00 2021-03-16 13:30:00 Solution Manager Visit Salbador [place] Pcp-Lab 1.2840.1 89889.1.1 3.104.2.7 .3.704910 .8 [id number] [facility] 2021-03-16 13:15:00 2021-03-16 13:15:00 Outpatient SALBADOR CRONIN [facility] [id number] [facility] 2021-03-16 12:00:00 2021-03-16 12:09:51 [facility] [id number] [facility] 2021-03-16 12:00:00 2021-03-16 12:09:51 Outpatient SARA DELGADILLO [facility] [id number] [facility] 2021-03-16 12:00:00 2021-03-16 12:00:00 Out[facility] [id number] [facility] 2021-03-16 00:00:00 2021-03-16 00:00:00 Travel 1.2840.1 83969.1.1 3.104.2.7 .3.058343 .8 1.2.840.114 350.1.13.10 4.2.7.3.698 084.8 [id number] [facility] 2021-03-16 00:00:00 2021-03-16 00:00:00 Travel 1.2.840.1 77961.1.1 3.104.2.7 .3.491167 .8 1.2.840.114 350.1.13.10 4.2.7.3.698 084.8 [id number] [facility] 2021-03-11 09:44:00 2021-03-11 13:06:00 Emergency X [facility] ERT [id number] [facility] 2021-03-11 09:44:00 2021-03-11 13:06:00 Emergency Halima Connor 1.2.840.1 60821.1.1 3.104.2.7 .3.837944 .8 [id number] [facility] 2021-03-11 09:44:00 2021-03-11 13:06:00 Emergency X [facility] ERT [id number] [facility] 2021-03-11 09:44:00 2021-03-11 13:06:00 Emergency Halima Connor 1.2.840.1 89462.1.1 3.104.2.7 .3.862019 .8 [id number] [facility] 2021-03-11 09:44:00 2021-03-11 13:06:00 Emergency X [facility] ERT [id number] [facility] 2021-03-11 09:44:00 2021-03-11 09:44:00 Emergency X [facility] ERT [id number] [facility] 2021-03-11 00:00:00 2021-03-11 00:00:00 Travel 1.2.840.1 49701.1.1 3.104.2.7 .3.110217 .8 1.2.840.114 350.1.13.10 4.2.7.3.698 084.8 [id number] [facility] 2021-03-11 00:00:00 2021-03-11 00:00:00 Travel 1.2.840.1 22013.1.1 3.104.2.7 .3.214546 .8 1.2.840.114 350.1.13.10 4.2.7.3.698 084.8 [id number] [facility] 2021-03-08 15:00:00 2021-03-08 15:15:00 Solution Manager Visit Salbador [place] Pcp-Lab 1.2.840.1 58559.1.1 3.104.2.7 .3.338801 .8 [id number] [facility] 2021-03-08 15:00:00 2021-03-08 15:15:00 Solution Manager Visit Salbador [place] Pcp-Lab 1.2.840.1 32689.1.1 3.104.2.7 .3.971673 .8 [id number] [facility] 2021-03-08 15:00:00 2021-03-08 15:00:00 Outpatient R SALBADOR LOCKWOOD [facility] [id number] [facility] 2021-01-31 10:15:00 2021-01-31 10:55:06 Outpatient R DEXTER DIAS [facility] [id number] [facility] 2020-12-29 08:00:00 2020-12-29 08:41:00 Outpatient R SELFDEXTER [facility] [id number] [facility] 2020-12-29 08:00:00 2020-12-29 08:41:00 [facility] [id number] [facility] 2020-12-29 00:00:00 2020-12-29 00:00:00 Travel 1.2.840.1 09171.1.1 3.104.2.7 .3.341724 .8 1.2.840.114 350.1.13.10 4.2.7.3.698 084.8 [id number] [facility] 2020-12-29 00:00:00 2020-12-29 00:00:00 Travel 1.2.840.1 54178.1.1 3.104.2.7 .3.955109 .8 1.2.840.114 350.1.13.10 4.2.7.3.698 084.8 [id number] [facility] 2020-12-22 09:30:00 2020-12-22 09:30:00 Outpatient R LARISSA [facility] [id number] [facility] 2020-12-22 09:30:00 2020-12-22 09:30:00 Outpatient R SELF [facility] [id number] [facility] 2020-11-26 00:00:00 2020-11-26 00:00:00 Orders Only Doctor Unassigned, [place] [facility] 1.2.840.114 350.1.13.10 4.2.7.2.686 [id number] [facility] 2020-11-10 09:30:00 2020-11-10 09:30:00 Outpatient R ROBERT NOWAK [facility] [id number] [facility] 2020-11-10 00:00:00 2020-11-10 00:00:00 Orders Only Doctor Unassigned, [place] 1.2.840.1 62622.1.1 3.104.2.7 .3.675284 .8 [id number] [facility] 2020-11-10 00:00:00 2020-11-10 00:00:00 Travel 1.2.840.1 60956.1.1 3.104.2.7 .3.781828 .8 1.2.840.114 350.1.13.10 4.2.7.3.698 084.8 [id number] [facility] 2020-10-11 08:00:00 2020-10-11 08:00:00 Outpatient R SELF [facility] [id number] [facility] 2020-10-11 00:00:00 2020-10-11 00:00:00 Travel 1.2.840.1 51067.1.1 3.104.2.7 .3.782160 .8 1.2.840.114 350.1.13.10 4.2.7.3.698 084.8 [id number] [facility] 2020-09-13 08:00:00 2020-09-13 08:00:00 Outpatient R SELF [facility] [id number] [facility] 2020-09-13 00:00:00 2020-09-13 00:00:00 Travel 1.2.840.1 04154.1.1 3.104.2.7 .3.019977 .8 1.2.840.114 350.1.13.10 4.2.7.3.698 084.8 [id number] [facility] 2020-09-02 16:12:00 2020-09-02 20:21:00 Emergency Patti Rose 1.2.840.1 36466.1.1 3.104.2.7 .3.998306 .8 [id number] [facility] 2020-09-02 16:12:00 2020-09-02 20:21:00 Emergency Patti Rose [facility] 1.2.840.114 350.1.13.10 4.2.7.2.686 [id number] 2020-09-02 00:00:00 2020-09-02 00:00:00 Travel 1.2.840.1 41002.1.1 3.104.2.7 .3.665486 .8 1.2.840.114 350.1.13.10 4.2.7.3.698 084.8 [id number] [facility] 2020-09-02 00:00:00 2020-09-02 00:00:00 Orders Only Doctor Unassigned, [place] 1.2.840.1 08408.1.1 3.104.2.7 .3.385149 .8 [id number] [facility] 2020-09-02 00:00:00 2020-09-02 00:00:00 Orders Only Doctor Unassigned, [place] [facility] 1.2.840.114 350.1.13.10 4.2.7.2.686 [id number] 2020-08-25 09:15:00 2020-08-25 09:15:00 Outpatient R [facility] [id number] [facility] 2020-08-09 08:45:00 2020-08-09 08:45:00 Outpatient R DEXTER DIAS [facility] [id number] [facility] 2020-06-28 13:45:00 2020-06-28 13:45:00 Outpatient R SALBADOR LOCKWOOD [facility] [id number] [facility] 2020-06-21 15:15:00 2020-06-21 15:15:00 Outpatient R DEXTER DIAS [facility] [id number] [facility] 2020-06-07 08:45:00 2020-06-07 08:45:00 Outpatient R DEXTER DIAS [facility] [id number] [facility] 2020-05-25 08:30:00 2020-05-25 08:30:00 Outpatient R CRISTO MARTINEZ [facility] [id number] [facility] 2020-03-15 13:00:00 2020-03-15 13:00:00 Outpatient R SALBADOR LOCKWOOD [facility] [id number] [facility] 2020-03-08 13:00:00 2020-03-08 13:00:00 Outpatient R DEXTER DIAS [facility] [id number] [facility] 2020-02-16 11:00:00 2020-02-16 11:00:00 Outpatient R DEXTER DIAS [facility] [id number] [facility] 2020-01-27 11:45:00 2020-01-27 11:45:00 Outpatient R DEXTER DIAS [facility] [id number] [facility] 2020-01-19 08:00:00 2020-01-19 08:00:00 Outpatient R DEXTER DIAS [facility] [id number] [facility] 2019-12-22 08:45:00 2019-12-22 08:45:00 Outpatient R DEXTER DIAS [facility] [id number] [facility] 2019-12-05 10:45:00 2019-12-05 10:45:00 Outpatient R JEWEL MORAES [facility] [id number] [facility] 2019-10-23 09:15:00 2019-10-23 09:15:00 Outpatient R KATH DELGADO [facility] [id number] [facility] 2019-10-15 11:30:00 2019-10-15 11:30:00 Outpatient R ROBERT NOWAK [facility] [id number] [facility] 2019-10-01 14:30:00 2019-10-01 14:30:00 Outpatient R ROBERT NOWAK [facility] [id number] [facility] 2019-09-01 08:45:00 2019-09-01 08:45:00 Outpatient R DEXTER DIAS [facility] [id number] [facility] 2019-08-06 13:00:00 2019-08-06 13:00:00 Outpatient ANGELA HERRERA [facility] [id number] [facility] Results Test Description Test Time Test Comments Results Result Co mments Source [facility] MedicalHemoglobin A1c/Hemoglobin.total in [id number] 00:00:00* Test Item Value Reference Range Interpretation Comme nts Hemoglobin A1c/Hemoglobin.to lorraine in Blood (test code = 4548-4) 5.0 % <5.6 [facility] Medicalinfectious disease [id number] 00:00:00* Test Item Value Reference Range Interpretation Comme nts acinetobacter baumannii (aram t code = acinetobacter baumannii) 0.000 ppm 19.961-24.689 citrobacter freundii (test c ode = citrobacter freundii) 0.000 ppm 23.000-31.881 enterobacter aerogenes, cloa (test code = enterobacter aerogenes, cloacae) 0.000 ppm 23.000-31.535 enterococcus faecalis, faeci um (test code = enterococcus faecalis, faecium) 0.000 ppm 26.000-31.575 escherichia coli (test code = escherichia coli) 26.305 ppm 23.000-28.500 A klebsiella pneumoniae, oxyto ca (test code = klebsiella pneumoniae, oxytoca) 0.000 ppm 23.000-30.500 morganella morganii (test co de = morganella morganii) 0.000 ppm 19.961-24.689 proteus mirabilis, vulgaris (test code = proteus mirabilis, vulgaris) 0.000 ppm 23.000-28.500 pseudomonas aeruginosa (test code = pseudomonas aeruginosa) 0.000 ppm 23.000-28.500 staphylococcus aureus (test code = staphylococcus aureus) 0.000 ppm 26.000-30.902 streptococcus agalactiae (gr oup B strep) (test code = streptococcus agalactiae (group B strep)) 0.000 ppm 26.000-32.222 angela albicans, parapsilos is, tropicalis (test code = angela albicans, parapsilosis, tropicalis) 0.000 ppm 19.961-30.770 angela glabrata (nakaseomyc es glabratus) (test code = angela glabrata (nakaseomyces glabratus)) 0.000 ppm 23.000-32.138 angela krusei (pichia kudriavzevii) (test code = angela krusei (pichia kudriavzevii)) 0.000 ppm 23.000-32.271 serratia marcescens (test co de = serratia marcescens) 0.000 ppm 23.000-31.204 streptococcus pyogenes (grou p A strep) (test code = streptococcus pyogenes (group A strep)) 0.000 ppm 19.961-24.689 staphylococcus saprophyticus (test code = staphylococcus saprophyticus) 0.000 ppm 19.961-24.689 staphylococcus epidermidis, haemolyticus, lugdunensis (test code = staphylococcus epidermidis, haemolyticus, lugdunensis) 0.000 ppm 19.961-24.689 Herrera [id number] 07:30:50* Test Item Value Reference Range Interpretation Comme nts FERRITIN (test code = 2075) 18 NG/ML 13-200 UNLESS OTHERWISE INDICATED, ALL TESTING PERFORMED AT [facility] [address] [place] [address] INSURANCE OFFICE MANAGER: CHARLA HERNANDEZ M.D. CLIA NUMBER [id number] [facility] [place]. [id number] COMPREHENSIVE METABOLIC [id number] 07:30:06* Test Item Value Reference Range Interpretation Comme nts GLUCOSE (test code = 2217) 98 MG/DL 70-99 BUN (test code = 2208) 12 MG/DL 6-20 CREATININE (test code = 2214) 0.80 MG/DL 0.60-1.30 eGFR (2020 CKD-EPI) (test co de = 12212) 92 ML/MIN/1.73 >60 CALC BUN/CREAT (test code = 2235) 15 RATIO 6-28 SODIUM (test code = 2231) 139 MEQ/L 133-146 POTASSIUM (test code = 2228) 3.7 MEQ/L 3.5-5.4 CHLORIDE (test code = 2215) 101 MEQ/L 95-107 CARBON DIOXIDE (test code = 2206) 25 MEQ/L 19-31 CALCIUM (test code = 2209) 9.8 MG/DL 8.5-10.5 PROTEIN, TOTAL (test code = 2229) 6.7 G/DL 6.1-8.3 ALBUMIN (test code = 2201) 4.4 G/DL 3.5-5.2 CALC GLOBULIN (test code = 2240) 2.3 G/DL 1.9-3.7 CALC A/G RATIO (test code = 2234) 1.9 RATIO 1.0-2.6 BILIRUBIN, TOTAL (test code = 2207) 0.2 MG/DL <=1.2 ALKALINE PHOSPHATASE (test code = 2204) 168 U/L 40-118 H AST (test code = 2218) 18 U/L 9-40 ALT (test code = 2219) 30 U/L 5-40 CBC W/AUTO DIFF WITH [id number] 05:07:43* Test Item Value Reference Range Interpretation Comme nts WBC (test code = 1001) 4.5 K/UL 3.5-11.0 RBC (test code = 1002) 4.54 M/UL 3.80-5.40 HEMOGLOBIN (test code = 1003) 11.7 G/DL 11.5-15.5 HEMATOCRIT (test code = 1004) 36.7 % 34.0-45.0 MCV (test code = 1005) 80.8 fL 80.0-99.0 MCH (test code = 1006) 25.8 PG 25.0-33.0 MCHC (test code = 1007) 31.9 G/DL 31.0-36.0 RDW (test code = 1038) 16.8 % 11.5-15.0 H NEUTROPHILS (test code = 1008) 61.3 % LYMPHOCYTES (test code = 1010) 21.5 % MONOCYTES (test code = 1011) 11.3 % EOSINOPHILS (test code = 1012) 4.6 % BASOPHILS (test code = 1013) 1.1 % IMMATURE GRANULOCYTES (test code = 1036) 0.2 % NUCLEATED RBCS (test code = 1065) 0.0 /100 WBC'S See_Comment [Automated messa ge] The system which generated this result transmitted reference range: 0.0. The reference range was not used to interpret this result as normal/abnormal. PLATELET COUNT (test code = 1015) 247 K/UL 130-400 ABSOLUTE NEUTROPHILS (test code = 1066) 2.77 K/UL 1.50-7.50 ABSOLUTE LYMPHOCYTES (test code = 1067) 0.97 K/UL 1.00-4.00 L ABSOLUTE MONOCYTES (test code = 1068) 0.51 K/UL 0.20-1.00 ABSOLUTE EOSINOPHILS (test code = 1040) 0.21 K/UL 0.00-0.50 ABSOLUTE BASOPHILS (test code = 1069) 0.05 K/UL 0.00-0.20 ABS IMMATURE GRANULOCYTES (test code = 1020) 0.01 K/UL 0.00-0.10 ABS NUCLEATED RBCS (test code = 08170) 0.00 K/UL 0.00-0.11 CBC W/AUTO [id number] 00:00:00* Test Item Value Reference Range Interpretation Comme nts WBC (test code = 1001) 4.5 K/UL RBC (test code = 1002) 4.54 M/UL HEMOGLOBIN (test code = 1003) 11.7 G/DL HEMATOCRIT (test code = 1004) 36.7 % MCV (test code = 1005) 80.8 fL MCH (test code = 1006) 25.8 PG MCHC (test code = 1007) 31.9 G/DL RDW (test code = 1038) 16.8 % NEUTROPHILS (test code = 1008) 61.3 % LYMPHOCYTES (test code = 1010) 21.5 % MONOCYTES (test code = 1011) 11.3 % EOSINOPHILS (test code = 1012) 4.6 % BASOPHILS (test code = 1013) 1.1 % IMMATURE GRANULOCYTES (test code = 1036) 0.2 % NUCLEATED RBCS (test code = 1065) 0.0 /100WBC'S PLATELET COUNT (test code = 1015) 247 K/UL ABSOLUTE NEUTROPHILS (test c ode = 1066) 2.77 K/UL ABSOLUTE LYMPHOCYTES (test c ode = 1067) 0.97 K/UL ABSOLUTE MONOCYTES (test cod e = 1068) 0.51 K/UL ABSOLUTE EOSINOPHILS (test c ode = 1040) 0.21 K/UL ABSOLUTE BASOPHILS (test cod e = 1069) 0.05 K/UL ABS IMMATURE GRANULOCYTES (t est code = 1020) 0.01 K/UL ABS NUCLEATED RBCS (test cod e = 46087) 0.00 K/UL Robert F AustinCOMPREHENSIVE METABOLIC [id number] 00:00:00* Test Item Value Reference Range Interpretation Comme nts GLUCOSE (test code = 2217) 98 MG/DL BUN (test code = 2208) 12 MG/DL CREATININE (test code = 2214) 0.80 MG/DL eGFR (2020 CKD-EPI) (test co de = 49034) 92 ML/MIN/1.73 CALC BUN/CREAT (test code = 2235) 15 RATIO SODIUM (test code = 2231) 139 MEQ/L POTASSIUM (test code = 2228) 3.7 MEQ/L CHLORIDE (test code = 2215) 101 MEQ/L CARBON DIOXIDE (test code = 6) 25 MEQ/L CALCIUM (test code = 9) 9.8 MG/DL PROTEIN, TOTAL (test code = 2229) 6.7 G/DL ALBUMIN (test code = 2201) 4.4 G/DL CALC GLOBULIN (test code = 2240) 2.3 G/DL CALC A/G RATIO (test code = 2234) 1.9 RATIO BILIRUBIN, TOTAL (test code = 7) 0.2 MG/DL ALKALINE PHOSPHATASE (test code = 2203) 168 U/L AST (test code = 8) 18 U/L ALT (test code = 2218) 30 U/L Robert [id number] 00:00:00* Test Item Value Reference Range Interpretation Comme nts FERRITIN (test code = 5) 18 NG/ML Robert Ambrose Austinpregnancy test, [id number] 08:16:44* Test Item Value Reference Range Interpretation Comme nts HCG (test code = HCG) negative [facility], apt HPV,rfx 16/18,[id number] 00:00:00* Test Item Value Reference Range Interpretation Comme nts diagnosis: (test code = diagnosis:) SPRCS specimen adequacy: (test cod e = specimen adequacy:) SPRCS performed by: (test code = p erformed by:) SPRCS note: (test code = note:) PAPSMR test methodology: (test code = test methodology:) IGLPAP HPV aptima (test code = HPV aptima) NEGATIVE negative [facility] Pathology biopsy [id number] 00:00:00Clinical InformationPathologistA SourceA Gross DescriptionA DiagnosisA CommentPrivia Medicalurinalysis, [id number] 00:00:00* Test Item Value Reference Range Interpretation [...] code = yeast) Present none seen A [facility] MedicalBacteria identified in Urine by [id number] 00:00:00* Test Item Value Reference Range Interpretation Comme nts urine culture, routine (test code = urine culture, routine) Final report result 1 (test code = result 1) MUG [facility] MedicalUA/M w/rflx culture, [id number] 00:00:00* Test Item Value Reference Range Interpretation [...] = urinalysis reflex) FLEX [facility] Medicalpregnancy test, [id number] 15:14:21* Test Item Value Reference Range Interpretation Comme nts HCG (test code = HCG) negative [facility] MedicalThyrotropin [Units/volume] in Serum or [id number] 00:00:00* Test Item Value Reference Range Interpretation Comme nts TSH (test code = TSH) 1.100 uIU/mL 0.500-4.530 [facility] MedicalEstradiol (E2) [Mass/volume] in Serum or [id number] 00:00:00 * Test Item Value Reference Range Interpretation Comme nts estradiol (test code = estradiol) 81.3 pg/mL 6.1-91.9 [facility] MedicalFollitropin [Units/volume] in Serum or [id number] 00:00:00* Test Item Value Reference Range Interpretation Comme nts FSH (test code = FSH) 3.9 mIU/mL [facility] MedicalChlamydia trachomatis and Neisseria gonorrhoeae rRNA panel - Specimen by KELI with probe [id number] 00:00:00* Test Item Value Reference Range Interpretation Comme nts aptima combo 2 swab (CT) (te st code = aptima combo 2 swab (CT)) CT NEG negative aptima combo 2 swab (GC) (te st code = aptima combo 2 swab (GC)) GC NEG negative [facility] Medicalurinalysis, [id number] 08:44:12* Test Item Value Reference Range Interpretation Comme nts Leukocytes (test code = Leukocytes) 1+ Nitrite (test code = Nitrite) negative Urobilinogen (test code = Urobilinogen) Normal Protein (test code = Protein) Negative pH (test code = pH) 6.0 Blood (test code = Blood) Non-Hemolyzed: Moderate Specific [place] (test code = Specific [place]) 1.020 Ketone (test code = Ketone) Negative Bilirubin (test code = Bilirubin) Negative Glucose (test code = Glucose) Negative Appearance (test code = Appearance) Slightly Cloudy Color (test code = Color) Yellow [facility] MedicalANA (ANTI-NUCLEAR AB) WITH REFLEX [id number] 00:00:00* Test Item Value Reference Range Interpretation Comme nts ANTI-NUCLEAR ANTIBODIES (aram t code = 3506) NEGATIVE YAZMIN PATTERN (REPORTED TITER) (test code = 06240) SEE BELOW HOMOGENEOUS (test code = 65231) NEGATIVE TITER SPECKLED (test code = 411404) NEGATIVE TITER DENSE FINE SPECKLED (test co de = 45393) NEGATIVE TITER CENTROMERE (test code = 155513) NEGATIVE TITER COARSE SPECKLED (test code = 377169) NEGATIVE TITER DISCRETE NUCLEAR DOTS (test code = 965808) NEGATIVE TITER NUCLEOLAR (test code = 305995) NEGATIVE TITER NUCLEAR MEMBRANE (test code = 284445) NEGATIVE TITER CYTO. RETICULAR (SANDY) (test code = 276824) NEGATIVE COMMENTS (test code = 956687) NONE METHOD (test code = 44129) (NOTE) Robert Bailon (ANTI-NUCLEAR AB) WITH REFLEX [id number] 00:00:00* Test Item Value Reference Range Interpretation Comme nts ANTI-NUCLEAR ANTIBODIES (aram t code = 3506) NEGATIVE YAZMIN PATTERN (REPORTED TITER) (test code = 42027) SEE BELOW HOMOGENEOUS (test code = 04788) NEGATIVE TITER SPECKLED (test code = 325247) NEGATIVE TITER DENSE FINE SPECKLED (test co de = 31748) NEGATIVE TITER CENTROMERE (test code = 878006) NEGATIVE TITER COARSE SPECKLED (test code = 573050) NEGATIVE TITER DISCRETE NUCLEAR DOTS (test code = 021892) NEGATIVE TITER NUCLEOLAR (test code = 241944) NEGATIVE TITER NUCLEAR MEMBRANE (test code = 781342) NEGATIVE TITER CYTO. RETICULAR (SANDY) (test code = 854582) NEGATIVE COMMENTS (test code = 315050) NONE METHOD (test code = 53051) (NOTE) Robert Bailon (ANTI-NUCLEAR AB) WITH REFLEX [id number] 00:00:00* Test Item Value Reference Range Interpretation Comme nts ANTI-NUCLEAR ANTIBODIES (aram t code = 3506) NEGATIVE YAZMIN PATTERN (REPORTED TITER) (test code = 11839) SEE BELOW HOMOGENEOUS (test code = 21486) NEGATIVE TITER SPECKLED (test code = 796168) NEGATIVE TITER DENSE FINE SPECKLED (test co de = 79343) NEGATIVE TITER CENTROMERE (test code = 604435) NEGATIVE TITER COARSE SPECKLED (test code = 714482) NEGATIVE TITER DISCRETE NUCLEAR DOTS (test code = 752585) NEGATIVE TITER NUCLEOLAR (test code = 793639) NEGATIVE TITER NUCLEAR MEMBRANE (test code = 738897) NEGATIVE TITER CYTO. RETICULAR (SANDY) (test code = 267399) NEGATIVE COMMENTS (test code = 642419) NONE METHOD (test code = 30400) (NOTE) Robert CaliCOMPLEMENT, TOTAL [id number] 00:00:00* Test Item Value Reference Range Interpretation Comme nts COMPLEMENT, TOTAL HEM (test code = 3508) 61 U/mL Robert Ambrose AustindsDNA [id number] 00:00:00* Test Item Value Reference Range Interpretation Comme nts dsDNA ANTIBODY (test code = 4287) <1.0 IU/ML Robert CaliCOMPLEMENT, TOTAL [id number] 00:00:00* Test Item Value Reference Range Interpretation Comme nts COMPLEMENT, TOTAL HEM (test code = 3508) 61 U/mL Robert CalidsDNA [id number] 00:00:00* Test Item Value Reference Range Interpretation Comme nts dsDNA ANTIBODY (test code = 4287) <1.0 IU/ML Robert CaliCOMPLEMENT, TOTAL [id number] 00:00:00* Test Item Value Reference Range Interpretation Comme nts COMPLEMENT, TOTAL HEM (test code = 3508) 61 U/mL Robert CalidsDNA [id number] 00:00:00* Test Item Value Reference Range Interpretation Comme nts dsDNA ANTIBODY (test code = 4287) <1.0 IU/ML Robert Ambrose AustinC-REACTIVE [id number] 00:00:00* Test Item Value Reference Range Interpretation Comme nts C-REACTIVE PROTEIN (test cod e = 3513) 0.6 MG/DL Robert Ambrose AustinSEDIMENTATION [id number] 00:00:00* Test Item Value Reference Range Interpretation Comme nts SEDIMENTATION RATE (test cod e = 1017) 5 MM/HOUR Robert Ambrose AustinRHEUMATOID FACTOR, [id number] 00:00:00* Test Item Value Reference Range Interpretation Comme nts RHEUMATOID FACTOR, QUANT (te st code = 3502) <10 IU/ML Robert Ambrose AustinRETICULOCYTE [id number] 00:00:00* Test Item Value Reference Range Interpretation Comme nts RETICULOCYTE HEMOGLOBIN (aram t code = 41974) 26.3 PG Robert F AustinC-REACTIVE [id number] 00:00:00* Test Item Value Reference Range Interpretation Comme nts C-REACTIVE PROTEIN (test cod e = 3513) 0.6 MG/DL Robert Ambrose AustinSEDIMENTATION [id number] 00:00:00* Test Item Value Reference Range Interpretation Comme nts SEDIMENTATION RATE (test cod e = 1017) 5 MM/HOUR Robert Ambrose AustinRHEUMATOID FACTOR, [id number] 00:00:00* Test Item Value Reference Range Interpretation Comme nts RHEUMATOID FACTOR, QUANT (te st code = 3502) <10 IU/ML Robert Ambrose AustinRETICULOCYTE [id number] 00:00:00* Test Item Value Reference Range Interpretation Comme nts RETICULOCYTE HEMOGLOBIN (aram t code = 15388) 26.3 PG Robert F AustinC-REACTIVE [id number] 00:00:00* Test Item Value Reference Range Interpretation Comme nts C-REACTIVE PROTEIN (test cod e = 3513) 0.6 MG/DL Robert CaliSEDIMENTATION [id number] 00:00:00* Test Item Value Reference Range Interpretation Comme nts SEDIMENTATION RATE (test cod e = 1017) 5 MM/HOUR Robert CaliRHEUMATOID FACTOR, [id number] 00:00:00* Test Item Value Reference Range Interpretation Comme nts RHEUMATOID FACTOR, QUANT (te st code = 3502) <10 IU/ML Robert CaliRETICULOCYTE [id number] 00:00:00* Test Item Value Reference Range Interpretation Comme nts RETICULOCYTE HEMOGLOBIN (aram t code = 82314) 26.3 PG Robert CaliCBC W/AUTO [id number] 00:00:00* Test Item Value Reference Range Interpretation [...] ABS NUCLEATED RBCS (test cod e = 30931) 0.00 K/UL Robert CaliC W/AUTO [id number] 00:00:00* Test Item Value Reference Range Interpretation [...] ABS NUCLEATED RBCS (test cod e = 22614) 0.00 K/UL Robert CaliC W/AUTO [id number] 00:00:00* Test Item Value Reference Range Interpretation [...] ABS NUCLEATED RBCS (test cod e = 50033) 0.00 K/UL Robert Ambrose [facility] W/AUTO [id number] 00:00:00* Test Item Value Reference Range Interpretation [...] ABS NUCLEATED RBCS (test cod e = 51210) 0.00 K/UL Robert CaliCBC W/AUTO [id number] 00:00:00* Test Item Value Reference Range Interpretation [...] ABS NUCLEATED RBCS (test cod e = 95217) 0.00 K/UL Robert [id number] 05:10:38* Test Item Value Reference Range Interpretation Comme nts FERRITIN (test code = 2075) 69 NG/ML 13-200 CBC W/AUTO DIFF WITH [id number] 02:22:56* Test Item Value Reference Range Interpretation [...] 0.00-0.10 ABS NUCLEATED RBCS (test code = 00026) 0.00 K/UL 0.00-0.11 UNLESS OTHER SPARROW INDICATED, ALL TESTING PERFORMED AT [facility] [address] [place] [address] INSURANCE OFFICE MANAGER: CHARLA HERNANDEZ M.D. CLIA NUMBER [id number] [facility] [place]. [id number] 00:00:00* Test Item Value Reference Range Interpretation Comme nts FERRITIN (test code = 5) 69 NG/ML Robert Ambrose AustinCBC W/AUTO [id number] 00:00:00* Test Item Value Reference Range Interpretation [...] ABS NUCLEATED RBCS (test cod e = 95975) 0.00 K/UL Robert [id number] 00:00:00* Test Item Value Reference Range Interpretation Comme nts FERRITIN (test code = 5) 69 NG/ML Robert Ambrose AustinCBC W/AUTO [id number] 00:00:00* Test Item Value Reference Range Interpretation [...] ABS NUCLEATED RBCS (test cod e = 23996) 0.00 K/UL Robert Ambrose [id number] 00:00:00* Test Item Value Reference Range Interpretation Comme nts FERRITIN (test code = 2075) 69 NG/ML Robert CaliCBC W/AUTO [id number] 00:00:00* Test Item Value Reference Range Interpretation [...] ABS NUCLEATED RBCS (test cod e = 02631) 0.00 K/UL Robert [id number] 00:00:00* Test Item Value Reference Range Interpretation Comme nts FERRITIN (test code = 2075) 69 NG/ML Robert CaliCBC W/AUTO [id number] 00:00:00* Test Item Value Reference Range Interpretation [...] ABS NUCLEATED RBCS (test cod e = 54717) 0.00 K/UL Robert [id number] 00:00:00* Test Item Value Reference Range Interpretation Comme nts FERRITIN (test code = 2075) 69 NG/ML Robert CaliCBC W/AUTO [id number] 00:00:00* Test Item Value Reference Range Interpretation [...] ABS NUCLEATED RBCS (test cod e = 86382) 0.00 K/UL Robert CaliYAZMIN (ANTI-NUCLEAR AB) WITH REFLEX [id number] 06:46:04* Test Item Value Reference Range Interpretation Comme nts ANTI-NUCLEAR ANTIBODIES (test code = 3506) NEGATIVE NEGATIVE Methodology is I ndirect Immunofluorescent Assay (IFA) with a titering system using Ciw4253 cells (Hep2 cells transfected with SS-A/Ro). YAZMIN PATTERN (REPORTED TITER) (test code = 47008) SEE BELOW HOMOGENEOUS (test code = 23335) NEGATIVE TITER NEGATIVE SPECKLED (test code = 344595) NEGATIVE TITER NEGATIVE DENSE FINE SPECKLED (test code = 75702) NEGATIVE TITER NEGATIVE CENTROMERE (test code = 520522) NEGATIVE TITER NEGATIVE COARSE SPECKLED (test code = 950492) NEGATIVE TITER NEGATIVE DISCRETE NUCLEAR DOTS (test code = 114838) NEGATIVE TITER NEGATIVE NUCLEOLAR (test code = 601668) NEGATIVE TITER NEGATIVE NUCLEAR MEMBRANE (test code = 766742) NEGATIVE TITER NEGATIVE CYTO. RETICULAR (SANDY) (test code = 664288) NEGATIVE NEGATIVE COMMENTS (test code = 812262) NONE METHOD (test code = 62549) (NOTE) TESTING PERFORME D BY [employer] IFA PLATFORM.THE METHOD INCLUDES A SCREEN THRESHOLD OF 1:80, DIGITIZED AND COMPUTER ALGORITHM-ASSISTED INTERPRETATION OF TITERS AND DIGITAL PATTERNS, AND HEp-2 CELL LINE SUBSTRATE. ADDITIONAL UNUSUAL PATTERNS WILL BE GIVEN COMMENTS.FOR MORE INFORMATION, SEE [email or web address] OTHERWISE INDICATED, ALL TESTING PERFORMED AT [facility] [address] [place] [address] INSURANCE OFFICE MANAGER: CHARLA HERNANDEZ M.D. CLIA NUMBER [id number] [facility] [place]. [id number] NOTE:2023-12-07 06:05:36* Test Item Value Reference Range Interpretation Comme nts NOTE: (test code = 998) (NOTE) IN ACCORDANCE [facility] FEDERAL GUIDELINES REQUIRING ALL VERBAL REQUESTS FOR LABORATORY TESTS TO BE ACCOMPANIED BY WRITTEN AUTHORIZATION WITHIN 30 DAYS OF THIS REQUEST, PLEASE SIGN BELOW AND RETURN A COPY OF THIS REPORT BY FAX TO THE LABORATORY SCANNING DEPARTMENT AT [phone]. PHYSICIAN'S SIGNATURE DATE NOTE: [ADDED]2023-12-07 00:00:00* Test Item Value Reference Range Interpretation Comme nts NOTE: (test code = 998) (NOTE) Robert Ambrose Adamaris (ANTI-NUCLEAR AB) WITH REFLEX TITER [ADDED]2023-12-07 00:00:00* Test Item Value Reference Range Interpretation Comme nts ANTI-NUCLEAR ANTIBODIES (aram t code = 3506) NEGATIVE YAZMIN PATTERN (REPORTED TITER) (test code = 13701) SEE BELOW HOMOGENEOUS (test code = 92055) NEGATIVE TITER SPECKLED (test code = 365374) NEGATIVE TITER DENSE FINE SPECKLED (test co de = 89240) NEGATIVE TITER CENTROMERE (test code = 253367) NEGATIVE TITER COARSE SPECKLED (test code = 452033) NEGATIVE TITER DISCRETE NUCLEAR DOTS (test code = 946896) NEGATIVE TITER NUCLEOLAR (test code = 060755) NEGATIVE TITER NUCLEAR MEMBRANE (test code = 648612) NEGATIVE TITER CYTO. RETICULAR (SANDY) (test code = 009660) NEGATIVE COMMENTS (test code = 756899) NONE METHOD (test code = 35138) (NOTE) Robert Ambrose VirajNOTE: [ADDED]2023-12-07 00:00:00* Test Item Value Reference Range Interpretation Comme nts NOTE: (test code = 998) (NOTE) Robert Ambrose Adamaris (ANTI-NUCLEAR AB) WITH REFLEX TITER [ADDED]2023-12-07 00:00:00* Test Item Value Reference Range Interpretation Comme nts ANTI-NUCLEAR ANTIBODIES (aram t code = 3506) NEGATIVE YAZMIN PATTERN (REPORTED TITER) (test code = 21657) SEE BELOW HOMOGENEOUS (test code = 83073) NEGATIVE TITER SPECKLED (test code = 951538) NEGATIVE TITER DENSE FINE SPECKLED (test co de = 28609) NEGATIVE TITER CENTROMERE (test code = 754587) NEGATIVE TITER COARSE SPECKLED (test code = 272702) NEGATIVE TITER DISCRETE NUCLEAR DOTS (test code = 984060) NEGATIVE TITER NUCLEOLAR (test code = 408775) NEGATIVE TITER NUCLEAR MEMBRANE (test code = 475854) NEGATIVE TITER CYTO. RETICULAR (SANDY) (test code = 629881) NEGATIVE COMMENTS (test code = 102918) NONE METHOD (test code = 89662) (NOTE) Robert Ambrose VirajNOTE: [ADDED]2023-12-07 00:00:00* Test Item Value Reference Range Interpretation Comme nts NOTE: (test code = 998) (NOTE) Robert Ambrose Adamaris (ANTI-NUCLEAR AB) WITH REFLEX TITER [ADDED]2023-12-07 00:00:00* Test Item Value Reference Range Interpretation Comme nts ANTI-NUCLEAR ANTIBODIES (aram t code = 3506) NEGATIVE YAZMIN PATTERN (REPORTED TITER) (test code = 12813) SEE BELOW HOMOGENEOUS (test code = 48889) NEGATIVE TITER SPECKLED (test code = 829065) NEGATIVE TITER DENSE FINE SPECKLED (test co de = 41334) NEGATIVE TITER CENTROMERE (test code = 745139) NEGATIVE TITER COARSE SPECKLED (test code = 973429) NEGATIVE TITER DISCRETE NUCLEAR DOTS (test code = 040649) NEGATIVE TITER NUCLEOLAR (test code = 579878) NEGATIVE TITER NUCLEAR MEMBRANE (test code = 725823) NEGATIVE TITER CYTO. RETICULAR (SANDY) (test code = 062064) NEGATIVE COMMENTS (test code = 646162) NONE METHOD (test code = 96880) (NOTE) Robert CaliNOTE: [ADDED]2023-12-07 00:00:00* Test Item Value Reference Range Interpretation Comme nts NOTE: (test code = 998) (NOTE) Robert Bailon (ANTI-NUCLEAR AB) WITH REFLEX TITER [ADDED]2023-12-07 00:00:00* Test Item Value Reference Range Interpretation Comme nts ANTI-NUCLEAR ANTIBODIES (aram t code = 3506) NEGATIVE YAZMIN PATTERN (REPORTED TITER) (test code = 72163) SEE BELOW HOMOGENEOUS (test code = 64524) NEGATIVE TITER SPECKLED (test code = 201750) NEGATIVE TITER DENSE FINE SPECKLED (test co de = 08904) NEGATIVE TITER CENTROMERE (test code = 673033) NEGATIVE TITER COARSE SPECKLED (test code = 513108) NEGATIVE TITER DISCRETE NUCLEAR DOTS (test code = 056556) NEGATIVE TITER NUCLEOLAR (test code = 065263) NEGATIVE TITER NUCLEAR MEMBRANE (test code = 768310) NEGATIVE TITER CYTO. RETICULAR (SANDY) (test code = 345338) NEGATIVE COMMENTS (test code = 558713) NONE METHOD (test code = 10426) (NOTE) Robert CaliNOTE: [ADDED]2023-12-07 00:00:00* Test Item Value Reference Range Interpretation Comme nts NOTE: (test code = 998) (NOTE) Robert Bailon (ANTI-NUCLEAR AB) WITH REFLEX TITER [ADDED]2023-12-07 00:00:00* Test Item Value Reference Range Interpretation Comme nts ANTI-NUCLEAR ANTIBODIES (aram t code = 3506) NEGATIVE YAZMIN PATTERN (REPORTED TITER) (test code = 70146) SEE BELOW HOMOGENEOUS (test code = 29351) NEGATIVE TITER SPECKLED (test code = 978319) NEGATIVE TITER DENSE FINE SPECKLED (test co de = 00071) NEGATIVE TITER CENTROMERE (test code = 239856) NEGATIVE TITER COARSE SPECKLED (test code = 551621) NEGATIVE TITER DISCRETE NUCLEAR DOTS (test code = 313673) NEGATIVE TITER NUCLEOLAR (test code = 037911) NEGATIVE TITER NUCLEAR MEMBRANE (test code = 130141) NEGATIVE TITER CYTO. RETICULAR (SANDY) (test code = 214698) NEGATIVE COMMENTS (test code = 948573) NONE METHOD (test code = 15971) (NOTE) Robert CaliNOTE: [ADDED]2023-12-07 00:00:00* Test Item Value Reference Range Interpretation Comme nts NOTE: (test code = 998) (NOTE) Robert Bailon (ANTI-NUCLEAR AB) WITH REFLEX TITER [ADDED]2023-12-07 00:00:00* Test Item Value Reference Range Interpretation Comme nts ANTI-NUCLEAR ANTIBODIES (aram t code = 3506) NEGATIVE YAZMIN PATTERN (REPORTED TITER) (test code = 49754) SEE BELOW HOMOGENEOUS (test code = 73714) NEGATIVE TITER SPECKLED (test code = 673621) NEGATIVE TITER DENSE FINE SPECKLED (test co de = 51687) NEGATIVE TITER CENTROMERE (test code = 884534) NEGATIVE TITER COARSE SPECKLED (test code = 775558) NEGATIVE TITER DISCRETE NUCLEAR DOTS (test code = 615901) NEGATIVE TITER NUCLEOLAR (test code = 284124) NEGATIVE TITER NUCLEAR MEMBRANE (test code = 036006) NEGATIVE TITER CYTO. RETICULAR (SANDY) (test code = 591149) NEGATIVE COMMENTS (test code = 412844) NONE METHOD (test code = 89120) (NOTE) Robert CaliPROTEIN ELECTROPHORESIS, [id number] 14:58:50* Test Item Value Reference Range Interpretation [...] HUSSEIN M.D. VITAMIN B 12 AND FOLIC [id number] 05:31:25* Test Item Value Reference Range Interpretation [...] . . . UG/L >=6.0 COMPREHENSIVE METABOLIC [id number] 04:03:47* Test Item Value Reference Range Interpretation [...] 3.5-5.2 CALC GLOBULIN (test code = 2239) 2.2 G/DL 1.9-3.7 CALC A/G RATIO (test code = 2233) 2.0 RATIO 1.0-2.6 BILIRUBIN, TOTAL (test code = 2206) <0.2 MG/DL <=1.2 ALKALINE PHOSPHATASE (test code = 2203) 144 U/L 40-118 H AST (test code = 2217) 16 U/L 9-40 ALT (test code = 2218) 16 U/L 5-40 UNLESS OTHERWISE INDICATED, ALL TESTING PERFORMED AT [facility] [address] [place] [address] INSURANCE OFFICE MANAGER: CHARLA HERNANDEZ M.D. CLIA NUMBER [id number] [facility] [place]. [id number] CBC W/AUTO DIFF WITH [id number] 03:00:25* Test Item Value Reference Range Interpretation [...] 0.00-0.10 ABS NUCLEATED RBCS (test code = 83790) 0.00 K/UL 0.00-0.11 VITAMIN B 12 AND FOLIC [id number] 00:00:00* Test Item Value Reference Range Interpretation Comme nts VITAMIN B-12 (test code = 2840) 380 PG/ML FOLIC ACID (test code = 2695) 7.0 UG/L Robert F AustinPROTEIN ELECTROPHORESIS, [id number] 00:00:00* Test Item Value Reference Range Interpretation [...] code = 2568) (NOTE) Robert CaliCBC W/AUTO [id number] 00:00:00* Test Item Value Reference Range Interpretation [...] ABS NUCLEATED RBCS (test cod e = 43568) 0.00 K/UL Robert F AustinCOMPREHENSIVE METABOLIC [id number] 00:00:00* Test Item Value Reference Range Interpretation Comme nts GLUCOSE (test code = 2217) 95 MG/DL BUN (test code = 8) 13 MG/DL CREATININE (test code = 2214) 0.65 MG/DL eGFR (2020 CKD-EPI) (test code = 67213) 110 ML/MIN/1.73 CALC BUN/CREAT (test code = 2235) 20 RATIO SODIUM (test code = 2231) 139 MEQ/L POTASSIUM (test code = 2228) 4.6 MEQ/L CHLORIDE (test code = 2215) 103 MEQ/L CARBON DIOXIDE (test code = 2206) 25 MEQ/L CALCIUM (test code = 2209) 10.1 MG/DL PROTEIN, TOTAL (test code = 2228) 6.7 G/DL ALBUMIN (test code = 2201) 4.5 G/DL CALC GLOBULIN (test code = 2240) 2.2 G/DL CALC A/G RATIO (test code = 2234) 2.0 RATIO BILIRUBIN, TOTAL (test code = 2206) <0.2 MG/DL ALKALINE PHOSPHATASE (test code = 4) 144 U/L AST (test code = 2218) 16 U/L ALT (test code = 2219) 16 U/L Robert CaliVITAMIN B 12 AND FOLIC [id number] 00:00:00* Test Item Value Reference Range Interpretation Comme nts VITAMIN B-12 (test code = 2840) 380 PG/ML FOLIC ACID (test code = 2695) 7.0 UG/L Robert CaliPROTEIN ELECTROPHORESIS, [id number] 00:00:00* Test Item Value Reference Range Interpretation [...] code = 2568) (NOTE) Robert CaliCBC W/AUTO [id number] 00:00:00* Test Item Value Reference Range Interpretation [...] ABS NUCLEATED RBCS (test cod e = 60068) 0.00 K/UL Robert CaliCOMPREHENSIVE METABOLIC [id number] 00:00:00* Test Item Value Reference Range Interpretation Comme nts GLUCOSE (test code = 2217) 95 MG/DL BUN (test code = 2208) 13 MG/DL CREATININE (test code = 2214) 0.65 MG/DL eGFR (2021 CKD-EPI) (test code = 09603) 110 ML/MIN/1.73 CALC BUN/CREAT (test code = [...] U/L Robert CaliVITAMIN B 12 AND FOLIC [id number] 00:00:00* Test Item Value Reference Range Interpretation Comme nts VITAMIN B-12 (test code = 2840) 380 PG/ML FOLIC ACID (test code = 2695) 7.0 UG/L Robert CaliPROTEIN ELECTROPHORESIS, [id number] 00:00:00* Test Item Value Reference Range Interpretation [...] code = 2568) (NOTE) Robert CaliCBC W/AUTO [id number] 00:00:00* Test Item Value Reference Range Interpretation [...] ABS NUCLEATED RBCS (test cod e = 74451) 0.00 K/UL Robert CaliCOMPREHENSIVE METABOLIC [id number] 00:00:00* Test Item Value Reference Range Interpretation Comme nts GLUCOSE (test code = 2217) 95 MG/DL BUN (test code = 2208) 13 MG/DL CREATININE (test code = 2214) 0.65 MG/DL eGFR (2020 CKD-EPI) (test code = 71717) 110 ML/MIN/1.73 CALC BUN/CREAT (test code = [...] U/L Robert CaliVITAMIN B 12 AND FOLIC [id number] 00:00:00* Test Item Value Reference Range Interpretation Comme nts VITAMIN B-12 (test code = 2840) 380 PG/ML FOLIC ACID (test code = 2695) 7.0 UG/L Robert CaliPROTEIN ELECTROPHORESIS, [id number] 00:00:00* Test Item Value Reference Range Interpretation [...] code = 2568) (NOTE) Robert CaliCBC W/AUTO [id number] 00:00:00* Test Item Value Reference Range Interpretation [...] ABS NUCLEATED RBCS (test cod e = 49853) 0.00 K/UL Robert CaliCOMPREHENSIVE METABOLIC [id number] 00:00:00* Test Item Value Reference Range Interpretation Comme nts GLUCOSE (test code = 2217) 95 MG/DL BUN (test code = 2208) 13 MG/DL CREATININE (test code = 2214) 0.65 MG/DL eGFR (2020 CKD-EPI) (test code = 67352) 110 ML/MIN/1.73 CALC BUN/CREAT (test code = [...] U/L Robert CaliVITAMIN B 12 AND FOLIC [id number] 00:00:00* Test Item Value Reference Range Interpretation Comme nts VITAMIN B-12 (test code = 2840) 380 PG/ML FOLIC ACID (test code = 2695) 7.0 UG/L Robert CaliPROTEIN ELECTROPHORESIS, [id number] 00:00:00* Test Item Value Reference Range Interpretation [...] code = 2568) (NOTE) Robert CaliCBC W/AUTO [id number] 00:00:00* Test Item Value Reference Range Interpretation [...] ABS NUCLEATED RBCS (test cod e = 62930) 0.00 K/UL Robert CaliCOMPREHENSIVE METABOLIC [id number] 00:00:00* Test Item Value Reference Range Interpretation Comme nts GLUCOSE (test code = 2217) 95 MG/DL BUN (test code = 2208) 13 MG/DL CREATININE (test code = 2214) 0.65 MG/DL eGFR (2020 CKD-EPI) (test code = 13415) 110 ML/MIN/1.73 CALC BUN/CREAT (test code = [...] U/L Robert CaliVITAMIN B 12 AND FOLIC [id number] 00:00:00* Test Item Value Reference Range Interpretation Comme nts VITAMIN B-12 (test code = 2840) 380 PG/ML FOLIC ACID (test code = 2695) 7.0 UG/L Robert CaliPROTEIN ELECTROPHORESIS, [id number] 00:00:00* Test Item Value Reference Range Interpretation [...] = 2568) (NOTE) Robert Ambrose VirajCBC W/AUTO [id number] 00:00:00* Test Item Value Reference Range Interpretation [...] ABS NUCLEATED RBCS (test cod e = 49059) 0.00 K/UL Robert CaliCOMPREHENSIVE METABOLIC [id number] 00:00:00* Test Item Value Reference Range Interpretation Comme nts GLUCOSE (test code = 2217) 95 MG/DL BUN (test code = 2208) 13 MG/DL CREATININE (test code = 2214) 0.65 MG/DL eGFR (2020 CKD-EPI) (test code = 77944) 110 ML/MIN/1.73 CALC BUN/CREAT (test code = [...] code = 2219) 16 U/L Robert CaliHAPTOGLOBIN, [id number] 13:13:35* Test Item Value Reference Range Interpretation Comme nts HAPTOGLOBIN, QUANT (test cod e = 62080) 227 MG/DL 32-197 H [id number] 05:29:31* Test Item Value Reference Range Interpretation Comme nts TRANSFERRIN (test code = 4936) 380 MG/DL 200-360 H [id number] 05:29:31* Test Item Value Reference Range Interpretation Comme nts LDH (test code = 222) 186 U/L 135-214 [id number] 04:14:38* Test Item Value Reference Range Interpretation Comme nts FERRITIN (test code = 2074) 6 NG/ML 13-200 L VITAMIN D, 25 [id number] 04:14:10* Test Item Value Reference Range Interpretation [...] IRON BINDING CAPACITY AND IRON AND % [id number] 04:13:51* Test Item Value Reference Range Interpretation Comme nts IRON, SERUM (test code = 222) 25 UG/DL 37-145 L UNSATURATED IBC (test code = 00263) 425 UG/DL 112-347 H CALC TOTAL IBC (test code = 2076) 450 UG/DL 250-450 CALC % IRON SAT (test code = 2079) 6 % 20-50 L URIC [id number] 04:13:51* Test Item Value Reference Range Interpretation Comme nts URIC ACID (test code = 223) 5.8 MG/DL 2.7-6.1 UNLESS OTHERWISE INDICATED, ALL TESTING PERFORMED AT [facility] [address] [place] [address] INSURANCE OFFICE MANAGER: CHARLA HERNANDEZ M.D. CLIA NUMBER [id number] [facility] [place]. [id number] LIPID [id number] 04:13:51* Test Item Value Reference Range Interpretation [...] SPECIMENS. FOR MOREINFORMATION, SEE CLIENT ANNOUNCEMENT AT [email or web address] RISK RATIO LDL/HDL (test code = 223) 2.58 RATIO <3.22 COMPREHENSIVE METABOLIC [id number] 04:13:51* Test Item Value Reference Range Interpretation Comme nts GLUCOSE (test code = 2216) 97 MG/DL 70-99 BUN (test code = 2207) 9 MG/DL 6-20 CREATININE (test code = 2213) 0.86 MG/DL 0.60-1.30 eGFR (2020 CKD-EPI) (test co de = 28725) 84 ML/MIN/1.73 >60 CALC BUN/CREAT (test code [...] code = 2219) 22 U/L 5-40 HEMOGLOBIN [id number] 03:10:06* Test Item Value Reference Range Interpretation Comme nts HEMOGLOBIN A1c (test code = 78449) 5.6 % 4.2-5.6 CBC W/AUTO DIFF RFLX SMEAR [id number] 02:37:07* Test Item Value Reference Range Interpretation [...] MANUAL DIFFERENTIAL WILL BE PERFORMED IF INDICATED.SEE [email or web address] CONTACT YOUR LOCAL [facility] CUSTOMER SERVICEDEPARTMENT FOR FURTHER INFORMATION. LYMPHOCYTES [...] 0.00-0.10 ABS NUCLEATED RBCS (test code = 03383) 0.00 K/UL 0.00-0.11 RETICULOCYTE WITH [id number] 02:37:07* Test Item Value Reference Range Interpretation Comme nts RETICULOCYTE COUNT (test cod e = 1018) 2.55 % 0.80-2.40 H ABSOLUTE RETICULOCYTE (test code = 63649) 115.0 K/UL 32.0-105.0 H HEMOGLOBIN [id number] 00:00:00* Test Item Value Reference Range Interpretation Comme nts HEMOGLOBIN A1c (test code = 20660) 5.6 % Robert Ambrose AustinLIPID [id number] 00:00:00* Test Item Value Reference Range Interpretation Comme nts CHOLESTEROL (test code = 2210) 212 MG/DL TRIGLYCERIDES (test code = 2232) 116 MG/DL HDL CHOLESTEROL (test code = 2220) 53 MG/DL CALC LDL CHOL (test code = 2237) 137 MG/DL RISK RATIO LDL/HDL (test cod e = 2238) 2.58 RATIO Robert Ambrose VirajCOMPREHENSIVE METABOLIC [id number] 00:00:00* Test Item Value Reference Range Interpretation [...] 2219) 22 U/L Robert CaliVITAMIN D, 25 [id number] 00:00:00* Test Item Value Reference Range Interpretation Comme nts VITAMIN D, 25 OH (test code = 4958) 18 NG/ML Robert CaliCBC W/AUTO DIFF RFLX SMEAR [id number] 00:00:00* Test Item Value Reference Range Interpretation [...] ABS NUCLEATED RBCS (test cod e = 65258) 0.00 K/UL Robert CaliRETICULOCYTE WITH [id number] 00:00:00* Test Item Value Reference Range Interpretation Comme nts RETICULOCYTE COUNT (test cod e = 1018) 2.55 % ABSOLUTE RETICULOCYTE (test code = 14455) 115.0 K/UL Robert CaliHAPTOGLOBIN, [id number] 00:00:00* Test Item Value Reference Range Interpretation Comme rigoberto HAPTOGLOBIN, QUANT (test cod e = 90830) 227 MG/DL Robert [id number] 00:00:00* Test Item Value Reference Range Interpretation Comme nts LDH (test code = 2224) 186 U/L Robert CaliIRON BINDING CAPACITY AND IRON AND % [id number] 00:00:00* Test Item Value Reference Range Interpretation Comme nts IRON, SERUM (test code = 2222) 25 UG/DL UNSATURATED IBC (test code = 20121) 425 UG/DL CALC TOTAL IBC (test code = 2077) 450 UG/DL CALC % IRON SAT (test code = 2079) 6 % Roebrt [id number] 00:00:00* Test Item Value Reference Range Interpretation Comme rigoberto FERRITIN (test code = 2075) 6 NG/ML Robert [id number] 00:00:00* Test Item Value Reference Range Interpretation Comme nts TRANSFERRIN (test code = 4936) 380 MG/DL Robert CaliURIC [id number] 00:00:00* Test Item Value Reference Range Interpretation Comme nts URIC ACID (test code = 2233) 5.8 MG/DL Robert CaliHEMOGLOBIN [id number] 00:00:00* Test Item Value Reference Range Interpretation Comme rigoberto HEMOGLOBIN A1c (test code = 49054) 5.6 % Robert CaliLIPID [id number] 00:00:00* Test Item Value Reference Range Interpretation Comme nts CHOLESTEROL (test code = 2210) 212 MG/DL TRIGLYCERIDES (test code = 2232) 116 MG/DL HDL CHOLESTEROL (test code = 2220) 53 MG/DL CALC LDL CHOL (test code = 2237) 137 MG/DL RISK RATIO LDL/HDL (test cod e = 2238) 2.58 RATIO Robert CaliCOMPREHENSIVE METABOLIC [id number] 00:00:00* Test Item Value Reference Range Interpretation Comme nts GLUCOSE (test code = 2217) 97 MG/DL BUN (test code = 2208) 9 MG/DL CREATININE (test code = 2214) 0.86 MG/DL eGFR (2020 CKD-EPI) (test co de = 42569) 84 ML/MIN/1.73 CALC BUN/CREAT (test code = [...] 2219) 22 U/L Robert CaliVITAMIN D, 25 [id number] 00:00:00* Test Item Value Reference Range Interpretation Comme nts VITAMIN D, 25 OH (test code = 4958) 18 NG/ML [facility] RFLX SMEAR [id number] 00:00:00* Test Item Value Reference Range Interpretation [...] ABS NUCLEATED RBCS (test cod e = 65488) 0.00 K/UL Robert CaliRETICULOCYTE WITH [id number] 00:00:00* Test Item Value Reference Range Interpretation Comme nts RETICULOCYTE COUNT (test cod e = 1018) 2.55 % ABSOLUTE RETICULOCYTE (test code = 54336) 115.0 K/UL Robert CaliHAPTOGLOBIN, [id number] 00:00:00* Test Item Value Reference Range Interpretation Comme nts HAPTOGLOBIN, QUANT (test cod e = 51181) 227 MG/DL Robert [id number] 00:00:00* Test Item Value Reference Range Interpretation Comme nts LDH (test code = 2224) 186 U/L Robert CaliIRON BINDING CAPACITY AND IRON AND % [id number] 00:00:00* Test Item Value Reference Range Interpretation Comme nts IRON, SERUM (test code = 2222) 25 UG/DL UNSATURATED IBC (test code = 31192) 425 UG/DL CALC TOTAL IBC (test code = 7) 450 UG/DL CALC % IRON SAT (test code = 2079) 6 % Robert [id number] 00:00:00* Test Item Value Reference Range Interpretation Comme nts FERRITIN (test code = 2075) 6 NG/ML Robert Ambrose [id number] 00:00:00* Test Item Value Reference Range Interpretation Comme nts TRANSFERRIN (test code = 4936) 380 MG/DL Robert Ambrose AustinURIC [id number] 00:00:00* Test Item Value Reference Range Interpretation Comme nts URIC ACID (test code = 2233) 5.8 MG/DL Robert CaliHEMOGLOBIN [id number] 00:00:00* Test Item Value Reference Range Interpretation Comme [facility] HEMOGLOBIN A1c (test code = 55713) 5.6 % Robert CaliLIPID [id number] 00:00:00* Test Item Value Reference Range Interpretation Comme nts CHOLESTEROL (test code = 2210) 212 MG/DL TRIGLYCERIDES (test code = 2232) 116 MG/DL HDL CHOLESTEROL (test code = 2220) 53 MG/DL CALC LDL CHOL (test code = 2237) 137 MG/DL RISK RATIO LDL/HDL (test cod e = 2238) 2.58 RATIO Robert CaliCOMPREHENSIVE METABOLIC [id number] 00:00:00* Test Item Value Reference Range Interpretation Comme nts GLUCOSE (test code = 2217) 97 MG/DL BUN (test code = 2208) 9 MG/DL CREATININE (test code = 2214) 0.86 MG/DL eGFR (2020 CKD-EPI) (test co de = 14394) 84 ML/MIN/1.73 CALC BUN/CREAT (test code = [...] 2219) 22 U/L Robert CaliVITAMIN D, 25 [id number] 00:00:00* Test Item Value Reference Range Interpretation Comme [facility] VITAMIN D, 25 OH (test code = 4958) 18 NG/ML Robert CaliCBC W/AUTO DIFF RFLX SMEAR [id number] 00:00:00* Test Item Value Reference Range Interpretation [...] ABS NUCLEATED RBCS (test cod e = 33695) 0.00 K/UL Robert CaliRETICULOCYTE WITH [id number] 00:00:00* Test Item Value Reference Range Interpretation Comme nts RETICULOCYTE COUNT (test cod e = 1018) 2.55 % ABSOLUTE RETICULOCYTE (test code = 36011) 115.0 K/UL Robert CaliHAPTOGLOBIN, [id number] 00:00:00* Test Item Value Reference Range Interpretation Comme nts HAPTOGLOBIN, QUANT (test cod e = 88980) 227 MG/DL Robert [id number] 00:00:00* Test Item Value Reference Range Interpretation Comme nts LDH (test code = 2224) 186 U/L Robert Ambrose VirajIRON BINDING CAPACITY AND IRON AND % [id number] 00:00:00* Test Item Value Reference Range Interpretation Comme nts IRON, SERUM (test code = 2221) 25 UG/DL UNSATURATED IBC (test code = 81624) 425 UG/DL CALC TOTAL IBC (test code = 2076) 450 UG/DL CALC % IRON SAT (test code = 2078) 6 % Robert [id number] 00:00:00* Test Item Value Reference Range Interpretation Comme nts FERRITIN (test code = 2074) 6 NG/ML Robert Ambrose [id number] 00:00:00* Test Item Value Reference Range Interpretation Comme nts TRANSFERRIN (test code = 4936) 380 MG/DL Robert Ambrose AustinURIC [id number] 00:00:00* Test Item Value Reference Range Interpretation Comme nts URIC ACID (test code = 223) 5.8 MG/DL Robert CaliHEMOGLOBIN [id number] 00:00:00* Test Item Value Reference Range Interpretation Comme rigoberto HEMOGLOBIN A1c (test code = 71720) 5.6 % Robert CaliLIPID [id number] 00:00:00* Test Item Value Reference Range Interpretation Comme nts CHOLESTEROL (test code = 2210) 212 MG/DL TRIGLYCERIDES (test code = 2) 116 MG/DL HDL CHOLESTEROL (test code = 0) 53 MG/DL CALC LDL CHOL (test code = 7) 137 MG/DL RISK RATIO LDL/HDL (test cod e = 2238) 2.58 RATIO Robert CaliCOMPREHENSIVE METABOLIC [id number] 00:00:00* Test Item Value Reference Range Interpretation Comme nts GLUCOSE (test code = 2217) 97 MG/DL BUN (test code = 2208) 9 MG/DL CREATININE (test code = 2214) 0.86 MG/DL eGFR (2020 CKD-EPI) (test co de = 98841) 84 ML/MIN/1.73 CALC BUN/CREAT (test code = [...] 2219) 22 U/L Robert CaliVITAMIN D, 25 [id number] 00:00:00* Test Item Value Reference Range Interpretation Comme nts VITAMIN D, 25 OH (test code = 4958) 18 NG/ML Robert Ambrose VirajCBC W/AUTO DIFF RFLX SMEAR [id number] 00:00:00* Test Item Value Reference Range Interpretation [...] ABS NUCLEATED RBCS (test cod e = 33303) 0.00 K/UL Robert CaliRETICULOCYTE WITH [id number] 00:00:00* Test Item Value Reference Range Interpretation Comme nts RETICULOCYTE COUNT (test cod e = 1018) 2.55 % ABSOLUTE RETICULOCYTE (test code = 13524) 115.0 K/UL Robert CaliHAPTOGLOBIN, [id number] 00:00:00* Test Item Value Reference Range Interpretation Comme nts HAPTOGLOBIN, QUANT (test cod e = 90791) 227 MG/DL Robert [id number] 00:00:00* Test Item Value Reference Range Interpretation Comme nts LDH (test code = 222) 186 U/L Robert CaliIRON BINDING CAPACITY AND IRON AND % [id number] 00:00:00* Test Item Value Reference Range Interpretation Comme nts IRON, SERUM (test code = 2222) 25 UG/DL UNSATURATED IBC (test code = 29039) 425 UG/DL CALC TOTAL IBC (test code = 2077) 450 UG/DL CALC % IRON SAT (test code = 2079) 6 % Robert [id number] 00:00:00* Test Item Value Reference Range Interpretation Comme nts FERRITIN (test code = 2075) 6 NG/ML Robert [id number] 00:00:00* Test Item Value Reference Range Interpretation Comme nts TRANSFERRIN (test code = 4936) 380 MG/DL Robert CaliURIC [id number] 00:00:00* Test Item Value Reference Range Interpretation Comme nts URIC ACID (test code = 2233) 5.8 MG/DL Robert CaliHEMOGLOBIN [id number] 00:00:00* Test Item Value Reference Range Interpretation Comme rigoberto HEMOGLOBIN A1c (test code = 08908) 5.6 % Robert CaliLIPID [id number] 00:00:00* Test Item Value Reference Range Interpretation Comme nts CHOLESTEROL (test code = 2210) 212 MG/DL TRIGLYCERIDES (test code = 2232) 116 MG/DL HDL CHOLESTEROL (test code = 2220) 53 MG/DL CALC LDL CHOL (test code = 2237) 137 MG/DL RISK RATIO LDL/HDL (test cod e = 2238) 2.58 RATIO Robert CaliCOMPREHENSIVE METABOLIC [id number] 00:00:00* Test Item Value Reference Range Interpretation Comme nts GLUCOSE (test code = 2217) 97 MG/DL BUN (test code = 2208) 9 MG/DL CREATININE (test code = 2214) 0.86 MG/DL eGFR (2020 CKD-EPI) (test co de = 49043) 84 ML/MIN/1.73 CALC BUN/CREAT (test code = [...] 2219) 22 U/L Robert CaliVITAMIN D, 25 [id number] 00:00:00* Test Item Value Reference Range Interpretation [facility] VIT[facility]IN D, 25 OH (test code = 4958) 18 NG/ML Robert CaliCBC W/AUTO DIFF RFLX SMEAR [id number] 00:00:00* Test Item Value Reference Range Interpretation Comme [facility] WBC (test code = 1001) 6.2 [...] ABS NUCLEATED RBCS (test cod e = 27267) 0.00 K/UL Robert CaliRETICULOCYTE WITH [id number] 00:00:00* Test Item Value Reference Range Interpretation Comme nts RETICULOCYTE COUNT (test cod e = 1018) 2.55 % ABSOLUTE RETICULOCYTE (test code = 27491) 115.0 K/UL Robert CaliHAPTOGLOBIN, [id number] 00:00:00* Test Item Value Reference Range Interpretation Comme nts HAPTOGLOBIN, QUANT (test cod e = 74937) 227 MG/DL Robert [id number] 00:00:00* Test Item Value Reference Range Interpretation Comme nts LDH (test code = 2224) 186 U/L Robert CaliIRON BINDING CAPACITY AND IRON AND % [id number] 00:00:00* Test Item Value Reference Range Interpretation Comme nts IRON, SERUM (test code = 2222) 25 UG/DL UNSATURATED IBC (test code = 48964) 425 UG/DL CALC TOTAL IBC (test code = 7) 450 UG/DL CALC % IRON SAT (test code = 2078) 6 % Robert [id number] 00:00:00* Test Item Value Reference Range Interpretation Comme nts FERRITIN (test code = 5) 6 NG/ML Robert CaliFbxuozGIBADAWJGVI0286-13-89 00:00:00* Test Item Value Reference Range Interpretation Comme nts TRANSFERRIN (test code = 4936) 380 MG/DL Robert CaliURIC [id number] 00:00:00* Test Item Value Reference Range Interpretation Comme nts URIC ACID (test code = 2233) 5.8 MG/DL Robert CaliHEMOGLOBIN [id number] 00:00:00* Test Item Value Reference Range Interpretation Comme rigoberto HEMOGLOBIN A1c (test code = 68185) 5.6 % Robert CaliLIPID [id number] 00:00:00* Test Item Value Reference Range Interpretation Comme nts CHOLESTEROL (test code = 2210) 212 MG/DL TRIGLYCERIDES (test code = 2232) 116 MG/DL HDL CHOLESTEROL (test code = 2220) 53 MG/DL CALC LDL CHOL (test code = 2237) 137 MG/DL RISK RATIO LDL/HDL (test cod e = 2238) 2.58 RATIO Robert CaliCOMPREHENSIVE METABOLIC [id number] 00:00:00* Test Item Value Reference Range Interpretation Comme nts GLUCOSE (test code = 2217) 97 MG/DL BUN (test code = 2208) 9 MG/DL CREATININE (test code = 2214) 0.86 MG/DL eGFR (2020 CKD-EPI) (test co de = 07968) 84 ML/MIN/1.73 CALC BUN/CREAT (test code = [...] 2219) 22 U/L Robert CaliVITAMIN D, 25 [id number] 00:00:00* Test Item Value Reference Range Interpretation Comme nts VITAMIN D, 25 OH (test code = 4958) 18 NG/ML Robert CaliCBC W/AUTO DIFF RFLX SMEAR [id number] 00:00:00* Test Item Value Reference Range Interpretation [...] ABS NUCLEATED RBCS (test cod e = 31407) 0.00 K/UL Robert CaliRETICULOCYTE WITH [id number] 00:00:00* Test Item Value Reference Range Interpretation Comme nts RETICULOCYTE COUNT (test cod e = 1018) 2.55 % ABSOLUTE RETICULOCYTE (test code = 24604) 115.0 K/UL Robert CaliHAPTOGLOBIN, [id number] 00:00:00* Test Item Value Reference Range Interpretation Comme nts HAPTOGLOBIN, QUANT (test cod e = 24640) 227 MG/DL Robert [id number] 00:00:00* Test Item Value Reference Range Interpretation Commyvonne altamirano LDH (test code = 2224) 186 U/L Robert CaliIRON BINDING CAPACITY AND IRON AND % [id number] 00:00:00* Test Item Value Reference Range Interpretation Commyvonne altamirano IRON, SERUM (test code = 2222) 25 UG/DL UNSATURATED IBC (test code = 87358) 425 UG/DL CALC TOTAL IBC (test code = 2077) 450 UG/DL CALC % IRON SAT (test code = 2079) 6 % Robert [id number] 00:00:00* Test Item Value Reference Range Interpretation Commyvonne altamirano FERRITIN (test code = 2075) 6 NG/ML Robert Ca[id number] 00:00:00* Test Item Value Reference Range Interpretation Greyson altamirano TRANSFERRIN (test code = 4936) 380 MG/DL Robert CaliURIC [id number] 00:00:00* Test Item Value Reference Range Interpretation Commyvonne altamirano URIC ACID (test code = 2233) 5.8 MG/DL Robert CaliCT ACUTE STROKE ANGIOGRAM [id number] 13:46:46CT STROKE ANGIOGRAM HEAD, CT STROKE ANGIOGRAM [...] caliber. The superior cerebellar arteriesare patent. The RODEO RIDER are patent bilaterally. No sizable posteriorcommunicating arteries are seen. The petrous, cavernous and supraclinoid internal carotid segmentsarewidely patent. The GIBSON and MCA are patent bilaterally. An anteriorcommunicating artery is seen. The dural venous sinuses are opacified and unremarkable.[facility] [id number] 13:46:46CT STROKE ANGIOGRAM HEAD, CT STROKE ANGIOGRAM [...] caliber. The superior cerebellar arteriesare patent. The RODEO RIDER are patent bilaterally. No sizable posteriorcommunicating arteries are seen. The petrous, cavernous and supraclinoid internal carotid segmentsarewidely patent. The GIBSON and MCA are patent bilaterally. An anteriorcommunicating artery is seen. The dural venous sinuses are opacified and unremarkable.[facility] [id number] 13:46:46CT STROKE ANGIOGRAM HEAD, CT STROKE ANGIOGRAM [...] caliber. The superior cerebellar arteriesare patent. The RODEO RIDER are patent bilaterally. No sizable posteriorcommunicating arteries are seen. The petrous, cavernous and supraclinoid internal carotid segmentsarewidely patent. The GIBSON and MCA are patent bilaterally. An anteriorcommunicating artery is seen. The dural venous sinuses are opacified and unremarkable.[facility] ACUTE STROKE ANGIOGRAM [id number] 13:46:46CT STROKE ANGIOGRAM HEAD, CT STROKE ANGIOGRAM [...] caliber. The superior cerebellar arteriesare patent. The RODEO RIDER are patent bilaterally. No sizable posteriorcommunicating arteries are seen. The petrous, cavernous and supraclinoid internal carotid segmentsarewidely patent. The GIBSON and MCA are patent bilaterally. An anteriorcommunicating artery is seen. The dural venous sinuses are opacified and unremarkable.[facility] ACUTE STROKE HEAD WO [id number] 13:44:48EXAM: CT STROKE HEAD WO CONTRAST HISTORY: [...] clear. Thecalvarium and central skull base are unremarkable.[facility] ACUTE STROKE HEAD WO [id number] 13:44:48EXAM: CT STROKE HEAD WO CONTRAST HISTORY: [...] clear. Thecalvarium and central skull base are unremarkable.[address]04-26 04:29:26* Test Item Value Reference Range Interpretation Comme nts [place] (test code = 3842907310) 0.6 mmol/L 0.6-1.2 ZAINAB (test code = ZAINAB) Toxic Range: ? Greater than 1.2 mmol/L Lab Interpretation (test code = 94695-9) Normal [address]04-26 04:29:26* Test Item Value Reference Range Interpretation Comme nts [place] (test code = 6599548086) 0.6 mmol/L 0.6-1.2 ZAINAB (test code = ZAINAB) Toxic Range: ? Greater than 1.2 mmol/L Lab Interpretation (test code = 28365-5) Normal [address]04-26 04:29:26* Test Item Value Reference Range Interpretation Comme nts [place] (test code = 8802711989) 0.6 mmol/L 0.6-1.2 ZAINAB (test code = ZAINAB) Toxic Range: ? Greater than 1.2 mmol/L Lab Interpretation (test code = 22222-5) Normal [address]04-26 04:29:26* Test Item Value Reference Range Interpretation Comme nts [place] (test code = [id number]) 0.6 mmol/L 0.6-1.2 [facility] (test code = ZAINAB) Toxic Range: ? Greater than 1.2 mmol/L Lab Interpretation (test code = 42841-0) Normal [address]04-26 04:29:26* Test Item Value Reference Range Interpretation Comme nts [place] (test code = [id number]) 0.6 mmol/L 0.6-1.2 [facility] (test code = ZAINAB) Toxic Range: ? Greater than 1.2 mmol/L Lab Interpretation (test code = 20411-9) Normal [facility]2024-04-26 04:29:26* Test Item Value Reference Range Interpretation Comme nts [place] (test code = [id number]) 0.6 mmol/L 0.6-1.2 [facility] (test code = ZAINAB) Toxic Range: ? Greater than 1.2 mmol/L Lab Interpretation (test code = 81255-3) Normal [facility]2024-04-26 04:29:26* Test Item Value Reference Range Interpretation Comme nts [place] (test code = [id number]) 0.6 mmol/L 0.6-1.2 [facility] (test code = ZAINAB) Toxic Range: ? Greater than 1.2 mmol/L Lab Interpretation (test code = 93304-8) Normal [facility]2024-04-26 04:29:26* Test Item Value Reference Range Interpretation Comme nts [place] (test code = 7209460045) 0.6 mmol/L 0.6-1.2 ZAINAB (test code = ZAINAB) Toxic Range: ? Greater than 1.2 mmol/L Lab Interpretation (test code = 35964-6) Normal [facility]2024-04-26 04:29:26* Test Item Value Reference Range Interpretation Comme nts [place] (test code = 5795776269) 0.6 mmol/L 0.6-1.2 ZAINAB (test code = ZAINAB) Toxic Range: ? Greater than 1.2 mmol/L Lab Interpretation (test code = 28112-6) Normal [facility]2024-04-26 03:33:22 ALCOHOL<10mg/dL06/07/2023 10:33 PM CDTUTMB LABORATORY SERVICESToxic Greater than or equal to 80 mg/dL. NOTE: Whole blood values are approximately 10% to 15% lower than serum and plasma.[facility]2024-04-26 03:33:22ALCOHOL<10mg/dL06/07/2023 10:33 PM CDTUTMB LABORATORY SERVICESToxic Greater than or equal to 80 mg/dL. NOTE: Whole blood values are approximately 10% to 15% lower than serum and plasma.[facility] 2023-06-08 03:33:22ALCOHOL<10mg/dL06/07/2023 10:33 PM CDTUTMB LABORATORY SERVICESToxic Greater than or equal to 80 mg/dL. NOTE: Whole blood values are approximately 10% to 15% lower than serum and plasma.[facility]2024-04-26 03:33:22ALCOHOL<10mg/dL06/07/2023 10:33 PM CDTUTMB LABORATORY SERVICESToxic Greater than or equal to 80 mg/dL. NOTE: Whole blood values are approximately 10% to 15% lower than serum and plasma.[facility]2024-04-26 03:33:22ALCOHOL<10mg/dL06/07/2023 10:33 PM CDTUTMB LABORATORY SERVICESToxic Greater than or equal to 80 mg/dL. NOTE: Whole blood values are approximately 10% to 15% lower than serum and plasma.[facility]2024-04-26 03:33:22ALCOHOL<10mg/dL06/07/2023 10:33 PM CDTUTMB LABORATORY SERVICESToxic Greater than or equal to 80 mg/dL. NOTE: Whole blood values are approximately 10% to 15% lower than serum and plasma. [facility]2024-04-26 03:33:22 ALCOHOL<10mg/dL06/07/2023 10:33 PM CDTUTMB LABORATORY SERVICESToxic Greater than or equal to 80 mg/dL. NOTE: Whole blood values are approximately 10% to 15% lower than serum and plasma.[facility]2024-04-26 03:33:22ALCOHOL<10mg/dL06/07/2023 10:33 PM CDTUTMB LABORATORY SERVICESToxic Greater than or equal to 80 mg/dL. NOTE: Whole blood values are approximately 10% to 15% lower than serum and plasma.[facility] 2023-06-08 03:33:22ALCOHOL<10mg/dL06/07/2023 10:33 PM [facility] SERVICESToxic Greater than or equal to 80 mg/dL. NOTE: Whole blood values are approximately 10% to 15% lower than serum and plasma.[facility] I - Code [id number] 03:15:34* Test Item Value Reference Range Interpretation Comme nts [place]OP[place] I (test code = 5237432645) 0.003 ng/mL <=0.034 ZAINAB (test code = [...] of biotin. Lab Interpretation (test code = 38886-3) Normal [facility] I - Code [id number] 03:15:34* Test Item Value Reference Range Interpretation Comme nts TROPONIN I (test code = 8701710262) 0.003 ng/mL <=0.034 ZAINAB (test code = [...] of biotin. Lab Interpretation (test code = 99135-4) Normal [facility] I - Code [id number] 03:15:34* Test Item Value Reference Range Interpretation Comme nts TROPONIN I (test code = 8586554241) 0.003 ng/mL <=0.034 ZAINAB (test code = [...] of biotin. Lab Interpretation (test code = 54687-5) Normal [facility] I - Code [id number] 03:15:34* Test Item Value Reference Range Interpretation Comme nts TROPONIN I (test code = 7099020346) 0.003 ng/mL <=0.034 ZAINAB (test code = [...] of biotin. Lab Interpretation (test code = 98282-9) Normal [facility] I - Code [id number] 03:15:34* Test Item Value Reference Range Interpretation Comme nts TROPONIN I (test code = 3404231249) 0.003 ng/mL <=0.034 ZAINAB (test code = [...] of biotin. Lab Interpretation (test code = 84001-1) Normal [facility] I - Code [id number] 03:15:34* Test Item Value Reference Range Interpretation Comme nts TROPONIN I (test code = 9229395976) 0.003 ng/mL <=0.034 ZAINAB (test code = [...] of biotin. Lab Interpretation (test code = 35878-9) Normal [facility] I - Code [id number] 03:15:34* Test Item Value Reference Range Interpretation Comme nts TROPONIN I (test code = 3661221465) 0.003 ng/mL <=0.034 ZAINAB (test code = [...] of biotin. Lab Interpretation (test code = 13078-3) Normal [facility] I - Code [id number] 03:15:34* Test Item Value Reference Range Interpretation Comme nts TROPONIN I (test code = 1402692132) 0.003 ng/mL <=0.034 ZAINAB (test code = [...] of biotin. Lab Interpretation (test code = 57029-2) Normal [facility] Code [id number] 03:15:34* Test Item Value Reference Range Interpretation Comme nts TROPONIN I (test code = 4296656104) 0.003 ng/mL <=0.034 ZAINAB (test code = [...] of biotin. Lab Interpretation (test code = 72373-1) Normal [facility] (NA, K, CL, CO2, Glucose, BUN, Creatinine, CA) - Code [id number] 03:03:47* Test Item Value Reference Range Interpretation Comme nts NA (test code = 7222087454) 135 mmol/L 135-145 K (test code = 1816804878) 4.3 mmol/L 3.5-5.0 CL (test code = 6220910972) 103 mmol/L 98-108 CO2 TOTAL (test code = 1427620464) 28 mmol/L 23-31 AGAP (test code = 3362352272) 4 2-16 BUN (test code = 1621327784) 11 mg/dL 7-23 GLUCOSE (test code = 2222359876) 120 mg/dL 70-110 H CREATININE (test code = 2160-0) 0.71 mg/dL 0.50-1.04 CALCIUM (test code = 4613090976) 9.3 mg/dL 8.6-10.6 eGFR (test code = 13615-1) 107.0 mL/min/1.73m2 CKD-EPI eGFR (2020). Assuming creatinine has been stable day-to-day for at least three months, the eGFR indicates Category G1 (>= 90 mL/min/1.73 m2) Lab Interpretation (test code = 22704-8) Abnormal [facility] Metabolic Panel (NA, K, CL, CO2, Glucose, BUN, Creatinine, CA) - Code [id number] 03:03:47* Test Item Value Reference Range Interpretation Comme nts NA (test code = 5061712867) 135 mmol/L 135-145 K (test code = 2578641564) 4.3 mmol/L 3.5-5.0 CL (test code = 3460033665) 103 mmol/L 98-108 CO2 TOTAL (test code = 3042550043) 28 mmol/L 23-31 AGAP (test code = 9913439142) 4 2-16 BUN (test code = 1710819712) 11 mg/dL 7-23 GLUCOSE (test code = 9145187858) 120 mg/dL 70-110 H CREATININE (test code = 2160-0) 0.71 mg/dL 0.50-1.04 CALCIUM (test code = 3083046462) 9.3 mg/dL 8.6-10.6 eGFR (test code = 56897-8) 107.0 mL/min/1.73m2 CKD-EPI eGFR (2020). Assuming creatinine has been stable day-to-day for at least three months, the eGFR indicates Category G1 (>= 90 mL/min/1.73 m2) Lab Interpretation (test code = 04899-6) Abnormal [facility] Metabolic Panel (NA, K, CL, CO2, Glucose, BUN, Creatinine, CA) - Code [id number] 03:03:47* Test Item Value Reference Range Interpretation Comme nts NA (test code = 9841239594) 135 mmol/L 135-145 K (test code = 7674964944) 4.3 mmol/L 3.5-5.0 CL (test code = 3712465883) 103 mmol/L 98-108 CO2 TOTAL (test code = 4567766281) 28 mmol/L 23-31 AGAP (test code = 4959963242) 4 2-16 BUN (test code = 3495676868) 11 mg/dL 7-23 GLUCOSE (test code = 1871207499) 120 mg/dL 70-110 H CREATININE (test code = 2160-0) 0.71 mg/dL 0.50-1.04 CALCIUM (test code = 0396355805) 9.3 mg/dL 8.6-10.6 eGFR (test code = 44698-6) 107.0 mL/min/1.73m2 CKD-EPI eGFR (2020). Assuming creatinine has been stable day-to-day for at least three months, the eGFR indicates Category G1 (>= 90 mL/min/1.73 m2) Lab Interpretation (test code = 38055-9) Abnormal [facility] Metabolic Panel (NA, K, CL, CO2, Glucose, BUN, Creatinine, CA) - Code [id number] 03:03:47* Test Item Value Reference Range Interpretation Comme nts NA (test code = 3173047076) 135 mmol/L 135-145 K (test code = 3940881383) 4.3 mmol/L 3.5-5.0 CL (test code = 1952125195) 103 mmol/L 98-108 CO2 TOTAL (test code = 1709010763) 28 mmol/L 23-31 AGAP (test code = 1841660101) 4 2-16 BUN (test code = 5352801482) 11 mg/dL 7-23 GLUCOSE (test code = 6345191459) 120 mg/dL 70-110 H CREATININE (test code = 2160-0) 0.71 mg/dL 0.50-1.04 CALCIUM (test code = 2289819965) 9.3 mg/dL 8.6-10.6 eGFR (test code = 47906-0) 107.0 mL/min/1.73m2 CKD-EPI eGFR (2020). Assuming creatinine has been stable day-to-day for at least three months, the eGFR indicates Category G1 (>= 90 mL/min/1.73 m2) Lab Interpretation (test code = 58064-3) Abnormal [facility] Metabolic Panel (NA, K, CL, CO2, Glucose, BUN, Creatinine, CA) - Code Vgzlrt7517-03-35 03:03:47* Test Item Value Reference Range Interpretation Comme nts NA (test code = 9518092484) 135 mmol/L 135-145 K (test code = 0494717797) 4.3 mmol/L 3.5-5.0 CL (test code = 3784493678) 103 mmol/L 98-108 CO2 TOTAL (test code = 2503080698) 28 mmol/L 23-31 AGAP (test code = 1612110996) 4 2-16 BUN (test code = 1392388438) 11 mg/dL 7-23 GLUCOSE (test code = 8123325513) 120 mg/dL 70-110 H CREATININE (test code = 2160-0) 0.71 mg/dL 0.50-1.04 CALCIUM (test code = 9474116248) 9.3 mg/dL 8.6-10.6 eGFR (test code = 56825-2) 107.0 mL/min/1.73m2 CKD-EPI eGFR (2020). Assuming creatinine has been stable day-to-day for at least three months, the eGFR indicates Category G1 (>= 90 mL/min/1.73 m2) Lab Interpretation (test code = 44787-2) Abnormal [facility] Metabolic Panel (NA, K, CL, CO2, Glucose, BUN, Creatinine, CA) - Code [id number] 03:03:47* Test Item Value Reference Range Interpretation Comme nts NA (test code = 5007954847) 135 mmol/L 135-145 K (test code = 2067399647) 4.3 mmol/L 3.5-5.0 CL (test code = 4862107397) 103 mmol/L 98-108 CO2 TOTAL (test code = 5037919011) 28 mmol/L 23-31 AGAP (test code = 8643166345) 4 2-16 BUN (test code = 6865293189) 11 mg/dL 7-23 GLUCOSE (test code = 7611132176) 120 mg/dL 70-110 H CREATININE (test code = 2160-0) 0.71 mg/dL 0.50-1.04 CALCIUM (test code = 1033891211) 9.3 mg/dL 8.6-10.6 eGFR (test code = 46162-7) 107.0 mL/min/1.73m2 CKD-EPI eGFR (2020). Assuming creatinine has been stable day-to-day for at least three months, the eGFR indicates Category G1 (>= 90 mL/min/1.73 m2) Lab Interpretation (test code = 69334-8) Abnormal [facility] Metabolic Panel (NA, K, CL, CO2, Glucose, BUN, Creatinine, CA) - Code Aipdia5933-87-81 03:03:47* Test Item Value Reference Range Interpretation Comme nts NA (test code = 5843346284) 135 mmol/L 135-145 K (test code = 0337222208) 4.3 mmol/L 3.5-5.0 CL (test code = 7324740718) 103 mmol/L 98-108 CO2 TOTAL (test code = 0690264613) 28 mmol/L 23-31 AGAP (test code = 4981299566) 4 2-16 BUN (test code = 8739807944) 11 mg/dL 7-23 GLUCOSE (test code = 9553927108) 120 mg/dL 70-110 H CREATININE (test code = 2160-0) 0.71 mg/dL 0.50-1.04 CALCIUM (test code = 0497479627) 9.3 mg/dL 8.6-10.6 eGFR (test code = 27341-0) 107.0 mL/min/1.73m2 CKD-EPI eGFR (2020). Assuming creatinine has been stable day-to-day for at least three months, the eGFR indicates Category G1 (>= 90 mL/min/1.73 m2) Lab Interpretation (test code = 67139-9) Abnormal [facility] Metabolic Panel (NA, K, CL, CO2, Glucose, BUN, Creatinine, CA) - Code [id number] 03:03:47* Test Item Value Reference Range Interpretation Comme nts NA (test code = 1420492131) 135 mmol/L 135-145 K (test code = 5754298428) 4.3 mmol/L 3.5-5.0 CL (test code = 7489343917) 103 mmol/L 98-108 CO2 TOTAL (test code = 4306667988) 28 mmol/L 23-31 AGAP (test code = 9452189221) 4 2-16 BUN (test code = 8344509373) 11 mg/dL 7-23 GLUCOSE (test code = 2850221072) 120 mg/dL 70-110 H CREATININE (test code = 2160-0) 0.71 mg/dL 0.50-1.04 CALCIUM (test code = 6553545882) 9.3 mg/dL 8.6-10.6 eGFR (test code = 57077-6) 107.0 mL/min/1.73m2 CKD-EPI eGFR (2020). Assuming creatinine has been stable day-to-day for at least three months, the eGFR indicates Category G1 (>= 90 mL/min/1.73 m2) Lab Interpretation (test code = 89097-1) Abnormal [facility] Metabolic Panel (NA, K, CL, CO2, Glucose, BUN, Creatinine, CA) - Code [id number] 03:03:47* Test Item Value Reference Range Interpretation Comme nts NA (test code = 9280186893) 135 mmol/L 135-145 K (test code = 3202541066) 4.3 mmol/L 3.5-5.0 CL (test code = 7484474899) 103 mmol/L 98-108 CO2 TOTAL (test code = 9809019226) 28 mmol/L 23-31 AGAP (test code = 1718505001) 4 2-16 BUN (test code = 9637794676) 11 mg/dL 7-23 GLUCOSE (test code = 8829969334) 120 mg/dL 70-110 H CREATININE (test code = 2160-0) 0.71 mg/dL 0.50-1.04 CALCIUM (test code = 4197927208) 9.3 mg/dL 8.6-10.6 eGFR (test code = 21318-9) 107.0 mL/min/1.73m2 CKD-EPI eGFR (2020). Assuming creatinine has been stable day-to-day for at least three months, the eGFR indicates Category G1 (>= 90 mL/min/1.73 m2) Lab Interpretation (test code = 79776-6) Abnormal [facility] - Code [id number] 03:00:48* Test Item Value Reference Range Interpretation Comme nts PROTIME PATIENT (test code = 5964-2) 10.4 10.1-12.6 INR (test code = 6301-6) 0.9 Normal INR <1.1; Warfarin Therapeutic range 2.0 to 3.0 or 2.5 to 3.5, depending upon the indications. Lab Interpretation (test code = 92044-1) Normal [facility] - Code [id number] 03:00:48* Test Item Value Reference Range Interpretation Comme nts PROTIME PATIENT (test code = 5964-2) 10.4 10.1-12.6 INR (test code = 6301-6) 0.9 Normal INR <1.1; Warfarin Therapeutic range 2.0 to 3.0 or 2.5 to 3.5, depending upon the indications. Lab Interpretation (test code = 71740-8) [facility] - Code [id number] 03:00:48* Test Item Value Reference Range Interpretation Comme nts PROTIME PATIENT (test code = 5964-2) 10.4 10.1-12.6 INR (test code = 6301-6) 0.9 Normal INR <1.1; Warfarin Therapeutic range 2.0 to 3.0 or 2.5 to 3.5, depending upon the indications. Lab Interpretation (test code = 70508-9) [facility] - Code [id number] 03:00:48* Test Item Value Reference Range Interpretation Comme nts PROTIME PATIENT (test code = 5964-2) 10.4 10.1-12.6 INR (test code = 6301-6) 0.9 Normal INR <1.1; Warfarin Therapeutic range 2.0 to 3.0 or 2.5 to 3.5, depending upon the indications. Lab Interpretation (test code = 71268-6) Normal [facility]Pro[facility] / INR - Code [id number] 03:00:48* Test Item Value Reference Range Interpretation Comme nts PROTIME PATIENT (test code = 5964-2) 10.4 10.1-12.6 INR (test code = 6301-6) 0.9 Normal INR <1.1; Warfarin Therapeutic range 2.0 to 3.0 or 2.5 to 3.5, depending upon the indications. Lab Interpretation (test code = 78210-6) Normal [facility]Pro[facility] - Code [id number] 03:00:48* Test Item Value Reference Range Interpretation Comme nts PROTIME PATIENT (test code = 5964-2) 10.4 10.1-12.6 INR (test code = 6301-6) 0.9 Normal INR <1.1; Warfarin Therapeutic range 2.0 to 3.0 or 2.5 to 3.5, depending upon the indications. Lab Interpretation (test code = 85129-1) Normal [facility]Pro[facility] - Code [id number] 03:00:48* Test Item Value Reference Range Interpretation Comme nts PROTIME PATIENT (test code = 5964-2) 10.4 10.1-12.6 INR (test code = 6301-6) 0.9 Normal INR <1.1; Warfarin Therapeutic range 2.0 to 3.0 or 2.5 to 3.5, depending upon the indications. Lab Interpretation (test code = 05100-4) Normal [facility] BranchPro[facility] / [facility]R - Code [id number] 03:00:48* Test Item Value Reference Range Interpretation Comme nts PROTIME PATIENT (test code = 5964-2) 10.4 10.1-12.6 INR (test code = 6301-6) 0.9 Normal INR <1.1; Warfarin Therapeutic range 2.0 to 3.0 or 2.5 to 3.5, depending upon the indications. Lab Interpretation (test code = 11530-3) Normal [facility]Pro[facility] - Code Rwjuci9964-67-71 03:00:48* Test Item Value Reference Range Interpretation Comme nts PROTIME PATIENT (test code = 5964-2) 10.4 10.1-12.6 INR (test code = 6301-6) 0.9 Normal INR <1.1; Warfarin Therapeutic range 2.0 to 3.0 or 2.5 to 3.5, depending upon the indications. Lab Interpretation (test code = 72493-2) Normal [facility] - Code Trbduz1946-07-76 03:00:47* Test Item Value Reference Range Interpretation Comme nts APTT Patient (test code = 3173-2) 29 -36 Lab Interpretation (test cod e = 69416-3) Normal [facility] - Code Akvibq2865-55-72 03:00:47* Test Item Value Reference Range Interpretation Comme nts APTT Patient (test code = 3173-2) 29 -36 Lab Interpretation (test cod e = 50952-7) Normal [facility] - Code Aqknfj4276-15-89 03:00:47* Test Item Value Reference Range Interpretation Comme nts APTT Patient (test code = 3173-2) 29 26-36 Lab Interpretation (test cod e = 98954-4) Normal [facility] - Code Gcgijm6392-09-34 03:00:47* Test Item Value Reference Range Interpretation Comme nts APTT Patient (test code = 3173-2) 29 26-36 Lab Interpretation (test cod e = 10436-9) [facility] [id number] 03:00:47* Test Item Value Reference Range Interpretation Comme nts APTT Patient (test code = 3173-2) 29 26-36 Lab Interpretation (test cod e = 92254-9) Normal [facility] - Code [id number] 03:00:47* Test Item Value Reference Range Interpretation Comme nts APTT Patient (test code = 3173-2) 29 26-36 Lab Interpretation (test cod e = 52808-2) [facility] Ecwybb9847-06-62 03:00:47* Test Item Value Reference Range Interpretation Comme nts APTT Patient (test code = 3173-2) 29 26-36 Lab Interpretation (test cod e = 25022-2) [facility] - Code Xobvxd0704-87-97 03:00:47* Test Item Value Reference Range Interpretation Comme nts APTT Patient (test code = 3173-2) 36 Lab Interpretation (test cod e = 58319-9) [facility] - Code Bgonxc1771-06-05 03:00:47* Test Item Value Reference Range Interpretation Comme nts APTT Patient (test code = 3173-2) Lab Interpretation (test cod e = 78163-4) Normal [facility] CenterCB without Diff - Code Mgsjoz8811-90-59 02:52:09* Test Item Value Reference Range Interpretation [...] 367 166-358 H MPV (test code = 68129-9) 11.3 fL 9.5-12.9 RDW-CV (test code = 788-0) 15.4 % 12.0-15.5 RDW-SD (test code = 66649-9) 43.8 fL 39.0-49.9 NRBC x10^3 (test code = 3239800996) See_Comment [Automated messa ge] The system which generated this result transmitted reference range: 10*3/?L. The reference range was not used to interpret this result as normal/abnormal. NRBC/100 WBC (test code = 0408368833) 0.0 0.0-10.0 IPF % (test code = 4864712813) Lab Interpretation (test code = 32951-4) Abnormal [facility] without Diff - Code [id number] 02:52:09* Test Item Value Reference Range Interpretation [...] 367 166-358 H MPV (test code = 93678-2) 11.3 fL 9.5-12.9 RDW-CV (test code = 788-0) 15.4 % 12.0-15.5 RDW-SD (test code = 45621-0) 43.8 fL 39.0-49.9 NRBC x10^3 (test code = 2119964015) See_Comment [Automated messa ge] The system which generated this result transmitted reference range: 10*3/?L. The reference range was not used to interpret this result as normal/abnormal. NRBC/100 WBC (test code = 4046079550) 0.0 0.0-10.0 IPF % (test code = 0663292881) Lab Interpretation (test code = 16093-5) Abnormal [facility] without Diff - Code [id number] 02:52:09* Test Item Value Reference Range Interpretation [...] 367 166-358 H MPV (test code = 41817-8) 11.3 fL 9.5-12.9 RDW-CV (test code = 788-0) 15.4 % 12.0-15.5 RDW-SD (test code = 20678-9) 43.8 fL 39.0-49.9 NRBC x10^3 (test code = 6393429698) See_Comment [Automated messa ge] The system which generated this result transmitted reference range: 10*3/?L. The reference range was not used to interpret this result as normal/abnormal. NRBC/100 WBC (test code = 0790748629) 0.0 0.0-10.0 IPF % (test code = 0333016326) Lab Interpretation (test code = 84998-9) Abnormal [facility] without Diff - Code Uqhbkz2163-71-16 02:52:09* Test Item Value Reference Range Interpretation [...] 367 166-358 H MPV (test code = 48525-7) 11.3 fL 9.5-12.9 RDW-CV (test code = 788-0) 15.4 % 12.0-15.5 RDW-SD (test code = 93521-9) 43.8 fL 39.0-49.9 NRBC x10^3 (test code = 7661316800) See_Comment [Automated [employer] ge] The system which generated this result transmitted reference range: 10*3/?L. The reference range was not used to interpret this result as normal/abnormal. NRBC/100 WBC (test code = 0756758558) 0.0 0.0-10.0 IPF % (test code = 4373415176) Lab Interpretation (test code = 32648-7) Abnormal [facility] without Diff - Code Nygfiz1250-57-29 02:52:09* Test Item Value Reference Range Interpretation [...] 367 166-358 H MPV (test code = 25720-9) 11.3 fL 9.5-12.9 RDW-CV (test code = 788-0) 15.4 % 12.0-15.5 RDW-SD (test code = 30161-7) 43.8 fL 39.0-49.9 NRBC x10^3 (test code = 9063693086) See_Comment [Automated [employer]] The system which generated this result transmitted reference range: 10*3/?L. The reference range was not used to interpret this result as normal/abnormal. NRBC/100 WBC (test code = 7539465568) 0.0 0.0-10.0 IPF % (test code = 1903575634) Lab Interpretation (test code = 79553-3) Abnormal [facility] without Diff - Code Wuhsel5274-43-25 02:52:09* Test Item Value Reference Range Interpretation [...] 367 166-358 H MPV (test code = 41386-6) 11.3 fL 9.5-12.9 RDW-CV (test code = 788-0) 15.4 % 12.0-15.5 RDW-SD (test code = 87385-2) 43.8 fL 39.0-49.9 NRBC x10^3 (test code = 8701471055) See_Comment [Automated messa ge] The system which generated this result transmitted reference range: 10*3/?L. The reference range was not used to interpret this result as normal/abnormal. NRBC/100 WBC (test code = 3872642646) 0.0 0.0-10.0 IPF % (test code = 0918314354) Lab Interpretation (test code = 02589-5) Abnormal [facility] without Diff - Code Mnierv3929-14-27 02:52:09* Test Item Value Reference Range Interpretation [...] 367 166-358 H MPV (test code = 51303-3) 11.3 fL 9.5-12.9 RDW-CV (test code = 788-0) 15.4 % 12.0-15.5 RDW-SD (test code = 64700-8) 43.8 fL 39.0-49.9 NRBC x10^3 (test code = 7290907567) See_Comment [Automated messa ge] The system which generated this result transmitted reference range: 10*3/?L. The reference range was not used to interpret this result as normal/abnormal. NRBC/100 WBC (test code = 5938937804) 0.0 0.0-10.0 IPF % (test code = 0152846002) Lab Interpretation (test code = 89182-9) Abnormal [facility] without Diff - Code Tfrmxy2353-92-39 02:52:09* Test Item Value Reference Range Interpretation [...] 367 166-358 H MPV (test code = 86110-9) 11.3 fL 9.5-12.9 RDW-CV (test code = 788-0) 15.4 % 12.0-15.5 RDW-SD (test code = 66211-1) 43.8 fL 39.0-49.9 NRBC x10^3 (test code = 3546153055) See_Comment [Automated [employer]] The system which generated this result transmitted reference range: 10*3/?L. The reference range was not used to interpret this result as normal/abnormal. NRBC/100 WBC (test code = 8366623689) 0.0 0.0-10.0 IPF % (test code = 5613996420) Lab Interpretation (test code = 15193-9) Abnormal [facility] without Diff - Code Ccrzkw2640-40-92 02:52:09* Test Item Value Reference Range Interpretation [...] 367 166-358 H MPV (test code = 21587-2) 11.3 fL 9.5-12.9 RDW-CV (test code = 788-0) 15.4 % 12.0-15.5 RDW-SD (test code = 38327-5) 43.8 fL 39.0-49.9 NRBC x10^3 (test code = 1765466564) See_Comment [[employer]] The system which generated this result transmitted reference range: 10*3/?L. The reference range was not used to interpret this result as normal/abnormal. NRBC/100 WBC (test code = 6888250665) 0.0 0.0-10.0 IPF % (test code = 3098872115) Lab Interpretation (test code = 63389-1) [facility] Glucose (Age >30 Days) - Code Stroke 2023-06-08 02:39:00* Test Item Value Reference Range Interpretation Comme nts POCT Glu (age>30days) (test code = 3342) 124 mg/dL 70-110 A Lab Interpretation (test cod e = 18232-3) [facility]normal [facility] Glucose (Age >30 Days) - Code Stroke 2023-06-08 02:39:00* Test Item Value Reference Range Interpretation Comme nts POCT Glu (age>30days) (test code = 3342) 124 mg/dL 70-110 A Lab Interpretation (test cod e = 94266-8) Abnormal [facility] BranchPOCT Glucose (Age >30 Days) - Code Stroke 2023-06-08 02:39:00* Test Item Value Reference Range Interpretation Comme nts POCT Glu (age>30days) (test code = 3342) 124 mg/dL 70-110 A Lab Interpretation (test cod e = 16983-8) Abnormal [facility] BranchPOCT Glucose (Age >30 Days) - Code Stroke 2023-06-08 02:39:00* Test Item Value Reference Range Interpretation Comme nts POCT Glu (age>30days) (test code = 3342) 124 mg/dL 70-110 A Lab Interpretation (test cod e = 26298-2) Abnormal [facility] BranchPOCT Glucose (Age >30 Days) - Code Stroke 2023-06-08 02:39:00* Test Item Value Reference Range Interpretation Comme nts POCT Glu (age>30days) (test code = 3342) 124 mg/dL 70-110 A Lab Interpretation (test cod e = 01307-8) Abnormal [facility] Medical BranchPOCT Glucose (Age >30 Days) - Code Stroke 2023-06-08 02:39:00* Test Item Value Reference Range Interpretation Comme nts POCT Glu (age>30days) (test code = 3342) 124 mg/dL 70-110 A Lab Interpretation (test cod e = 15839-0) Abnormal [facility] [place] BranchPOCT Glucose (Age >30 Days) - Code Stroke 2023-06-08 02:39:00* Test Item Value Reference Range Interpretation Comme nts POCT Glu (age>30days) (test code = 3342) 124 mg/dL 70-110 A Lab Interpretation (test cod e = 33912-4) Abnormal [facility] Glucose (Age >30 Days) - Code Stroke 2023-06-08 02:39:00* Test Item Value Reference Range Interpretation Comme nts POCT Glu (age>30days) (test code = 3342) 124 mg/dL 70-110 A Lab Interpretation (test cod e = 74290-2) Abnormal [facility] Glucose (Age >30 Days) - Code Stroke 2023-06-08 02:39:00* Test Item Value Reference Range Interpretation Comme nts POCT Glu (age>30days) (test code = 3342) 124 mg/dL 70-110 A Lab Interpretation (test cod e = 06611-2) [facility] Ljwvk5425-25-91 19:59:01* Test Item Value Reference Range Interpretation Comme nts FERRITIN (test code = 2377731718) 22.4 ng/mL 6.0-137.0 ZAINAB (test code = ZAINAB) Biotin has been reported to cause a negative bias, interpret results relative to patient's use of biotin. Lab Interpretation (test code = 14622-8) [facility] Xdcrc1451-37-25 19:59:01* Test Item Value Reference Range Interpretation Comme nts FERRITIN (test code = 7624658238) 22.4 ng/mL 6.0-137.0 ZAINAB (test code = ZAINAB) Biotin has been reported to cause a negative bias, interpret results relative to patient's use of biotin. Lab Interpretation (test code = 93824-0) [facility] Wboth1818-35-18 19:59:01* Test Item Value Reference Range Interpretation Comme nts FERRITIN (test code = 2099441793) 22.4 ng/mL 6.0-137.0 ZAINAB (test code = ZAINAB) Biotin has been reported to cause a negative bias, interpret results relative to patient's use of biotin. Lab Interpretation (test code = 51945-7) [facility] Wstmo0465-31-77 19:59:01* Test Item Value Reference Range Interpretation Comme nts FERRITIN (test code = 3938908516) 22.4 ng/mL 6.0-137.0 ZAINAB (test code = ZAINAB) Biotin has been reported to cause a negative bias, interpret results relative to patient's use of biotin. Lab Interpretation (test code = 68930-7) Normal [facility] Eduux3694-57-87 19:59:01* Test Item Value Reference Range Interpretation Comme nts FERRITIN (test code = 0132713972) 22.4 ng/mL 6.0-137.0 ZAINAB (test code = ZAINAB) Biotin has been reported to cause a negative bias, interpret results relative to patient's use of biotin. Lab Interpretation (test code = 31107-3) Normal [facility] Pywpz1986-01-98 19:59:01* Test Item Value Reference Range Interpretation Comme nts FERRITIN (test code = 8033560309) 22.4 ng/mL 6.0-137.0 ZAINAB (test code = ZAINAB) Biotin has been reported to cause a negative bias, interpret results relative to patient's use of biotin. Lab Interpretation (test code = 14069-3) Normal [facility] Nntyb7709-35-64 19:30:52* Test Item Value Reference Range Interpretation Comme nts IRON (test code = 7135103960) 54 ug/dL 50-160 TIBC (test code = 4316737721) 434 ug/dL 250-410 H % FE SAT (test code = 0230243972) 12 % 20-50 L Lab Interpretation (test cod e = 13228-3) Abnormal [facility] Cygis4605-09-10 19:30:52* Test Item Value Reference Range Interpretation Comme nts IRON (test code = 2270482415) 54 ug/dL 50-160 TIBC (test code = 9766910400) 434 ug/dL 250-410 H % FE SAT (test code = 4450516443) 12 % 20-50 L Lab Interpretation (test cod e = 35166-2) Abnormal [facility] Ltouq5468-77-14 19:30:52* Test Item Value Reference Range Interpretation Comme nts IRON (test code = 8353532077) 54 ug/dL 50-160 TIBC (test code = 3622444109) 434 ug/dL 250-410 H % FE SAT (test code = 7293993909) 12 % 20-50 L Lab Interpretation (test cod e = 87472-2) Abnormal [facility] Fcaty9572-83-79 19:30:52* Test Item Value Reference Range Interpretation Comme nts IRON (test code = 3595199429) 54 ug/dL 50-160 TIBC (test code = 9246862573) 434 ug/dL 250-410 H % FE SAT (test code = 0471933229) 12 % 20-50 L Lab Interpretation (test cod e = 52657-9) Abnormal [facility] Rdhyp9985-59-53 19:30:52* Test Item Value Reference Range Interpretation Comme nts IRON (test code = 0834391621) 54 ug/dL 50-160 TIBC (test code = 0974424962) 434 ug/dL 250-410 H % FE SAT (test code = 0757019465) 12 % 20-50 L Lab Interpretation (test cod e = 48085-3) Abnormal [facility] Boypu8344-10-85 19:30:52* Test Item Value Reference Range Interpretation Comme nts IRON (test code = 7895507071) 54 ug/dL 50-160 TIBC (test code = 5531408088) 434 ug/dL 250-410 H % FE SAT (test code = 7988363774) 12 % 20-50 L Lab Interpretation (test cod e = 38480-5) Abnormal [facility]2023-12-11 20:01:05* Test Item Value Reference Range Interpretation Comme nts [place] (test code = 7844229715) 0.5 mmol/L 0.6-1.2 L ZAINAB (test code = ZAINAB) Toxic Range: ? Greater than 1.2 mmol/L Lab Interpretation (test code = 10819-6) Abnormal [facility]2023-12-11 20:01:05* Test Item Value Reference Range Interpretation Comme nts [place] (test code = 7502963939) 0.5 mmol/L 0.6-1.2 L ZAINAB (test code = ZAINAB) Toxic Range: ? Greater than 1.2 mmol/L Lab Interpretation (test code = 57845-8) Abnormal [facility]2023-12-11 20:01:05* Test Item Value Reference Range Interpretation Comme nts [place] (test code = 5259065773) 0.5 mmol/L 0.6-1.2 L ZAINAB (test code = ZAINAB) Toxic Range: ? Greater than 1.2 mmol/L Lab Interpretation (test code = 33623-8) [facility] [id number] 19:23:05* Test Item Value Reference Range Interpretation Comme nts Case Report (test code = 8577821522) Surgical Pathology ?Case: [id number] ? Authorizing Provider: ?Dominic Keita MD ? [...] HPylori ? Final Diagnosis (test code = 0396344955) [id number] FuZzEwMzNcZnRuYmpcdWMx WIklsyEzHYbhuYatLLB9IZ VxYR6naLvxeNm5yYkqXPDf mrQ9mOPhXSebp2veKNC2a2 lipznmCTJsMGnfHy7tjZLb bPbfAzRyWPCnMIg4aX15YJ QoeK3ueFFkLFk9PRYrkALr tfFnVyGaXVMzfMOouZF5YC RoZR3jpaohEHpySXbiNHPm lqK5VMBubRKxX7UbUUSpTG 0essybHQC6LLokIOVtPLU9 ZgRrTSWko9Hxlrv5NqVkyI FyZFxwbGFpblxmczIwXHBh ilRVHxXBQI4XDVMAAEOMQ3 xYEJALMB5OJHONPiphwJDd BEQbBESdSQMNDK0PDDOaQ5 oSZgOaHW4GKCDiXHUzxCSv YSMykuYRQeCDMS6XUQ4XJQ wgQklPUFNZOlxwYXIgICAg UQMhWWyIB0KAMOSlFOJEJ7 EBUEnLSBzzUx9eFHSPEU5L M5xNR2LEKRSYRC3MCPaqVY PnIBIdLVUeYI7MLYknXCBI NM8ZSKETQBVMOCrDSNBQJV GQNMaDFDXUL2RFLTrXGLCd rbjfVFKaIn3xP2JLUMLDBE wgQklPUFNZOlxwYXIgICAg MRGtNUAKW3CGHoPYXM1IE1 5THRZHMFGRFD1TYOACQBgY TG1BZREJROXQDHPTP6ZliF FyICAgICAgLSBOTyBFVklE OI1DDYVMJmVKWGgAPMDdZB lTRUFTRVxwYXIgICAgICAt WU6WDBpyFDPHRB8TGLWVHx dBTklTTVMgSURFTlRJRklF RLLBHZRDWW0XOh4ZSDGEVq xwYXJccGFyfXtccnRmMVxz i6OaC6MkYyEoRZxwsbUeQF IfWhresbndEGHeQYL7wkIn XGPeQTijBLBbGAzyMb0yoR SfbOcvNrYpBNEqf4lnkqLR YRczWfAkJ321SHVmUOwkn4 dpv5VrSRDznUPzz8T1TNBM jhgptCo7x6lnEzJxYiK3qH KoEMmyF9jywwJlwGGyW2Ng mBErdJi4uVedH50zh1C7Ek eyU6rtRBDnOVRnU0TnKV0j VQJoJjl8TMR8XSP8JXSbJB XqI8YrTU9oNNHtlENgNKb8 q1hyyUqfJNIjQXO2g3seFV uebqB8UC2vao8jhCf5f2cl czEgRGVmYXVsdCBQYXJhZ3 GrlEahIc9buSp1nJgzGizc OYI2Oex3CS1hoa48fuy2mU mqIFOchvqbEbE0TBkzZDMv pqvxUBs4VDbzJONieOE5SO SbaGKmY3YlYPXkEZ6fzph1 QVY5OCrzAIWhEtA9VENfvJ XwEWZkoSijGZdqa886XOR5 DqTpQB5bK6Wvt7P3lV7rbR MuXXDqzPGnIzQwXTJcol2c aTJhUHgfn3FvDZG7prX6rJ YjdXJrXANlKV29Rcuit7Ho TudlGMD7ZOHaicAuq8Cdy3 glKzFlnkOpH6ziT7XvRUUt IKVcMBMoMeMtfcIrk7Zto8 RbzMKxuOb4s1cpBBJeBXCi uYxjv0kgSKT4HFRxO5H1jU Tpq7svGHklAKBvtBS9ysJ9 FQIsdOUcQ4FjfL9yPXXaWT 1sckr8w1cnUJR2UMjdDRXu KoA9xkF0GSXthFOnMGRbhX mcTRzau784QEE5ZuEgYVGi q5VqH8HkuWdzO20foJveI6 2pNFUvfRicvW4ljZexwQ6c ZjBcZnMyNFxxbFxwbGFpbl xmMVxmczIwXGxhbmcxMDMz ADkhX0egLhHdBRDjzQorIT mxn8CvXAVnUTDaKdwgmpMf XHBhciBJIGhhdmUgcGVyc2 9uYWxseSByZXZpZXdlZCBh sYpmg2ZnE3fzLP5qN2MwlR VdggPbpqZpFEouNOSce0x0 yPVxjGtjc5MemKXaJA87sj VjGVZsOUY0THYbh1dgLI65 hilqDbPvpX41xkQigiDvRM Xek6dtF5xtdFDli8Wab3Mj wgVoGMovb0XnDG7neQNfbj frvPW5INAtlRVjgkAqxaW7 fNzjRRTmmW5roI9fiZtumZ 0eJgDuStLaFTgcFG1zPKXs Z0wrcDDgUVJoCOOeF0fmAg VmwP0wfYejFrxwafC6RXGn cn19 Clinical Information (test code = 2149409610) Shivani Schuler is a 47 year old female with IDA1. Gastric polyp x 6 r/o adenoma2.Duodenal Bx, r/o Celiac disease 3. Gastric Bx r/o HPylori Gross Description (test code = 4650800062) j5qjiEDsGINniBJBJXF0QQ CoLU8xkDaeiXs8zBezMKGs ziH5oINePKovi3ogXEM2t5 sxopBTGszbDJReET4cMNti MVMbUZ7aWiNuLHLwFqOqSY BhcGVydzEyMjQwXHBhcGVy mEM2NGSfXX0gggbaFGfdAD zlINLljlK3CHMziAEsE7Iz WWDqRK5seungIAN2AGYEFm bcFz6cqBRrkWwlTjEsXlTt YXJzZXQwXGZuaWwgQXJpYW e3rM1ZUcnvIKW9AMNSZuzp JhxzxEujs4PdiDAmORPpMU xcaWQgNTEwMDAgXFxkYiBP AiJjVnQ2Pqx9NWT7OyA1FG q4DEIHXHXxAulyWRF6BgU9 GQb6KOXqPE1lGVkcgGNwIQ laEvugHWywU157WSnaFIKj I8RxQ2IdXGpsUnCvWUtxKD NuTHFoXUsoWJSzF7LVORNr ZTV3FhOwWBRiAUs6QRasL8 POVKFkJUZrLhQ2THVcOwK4 SJf9DCMKOg7mOQvoVqRaFD d3QHA2KGh6OkOqGFOhIvNs FDMmEFPqABcblSDiZA3baW xwZHXvZF1FLNLoBIsaVOHp JyRlW2HIA5aUAQ3mOUaquZ JjaFxmczIyXHBhciANClxw YMMyXA7SZZZbBPvsEXz2id GpGSVsYyKdJVTdJ60sr7GT z3GuWD2MZXj8evShcmdxtV 3gWYQslaHrAXhCrLMtnO3e ulRYYZdpDPXvS9XupgFvAJ hhZHTkco1ekUkcXRwaMqJf bGVkIHdpdGggdGhlIHBhdG mzfoYcR3G8qbDoUI1gXSBS MCDykN8qOIMaUOXyz0CnjN EsvHsqP7RwvXWtBbYrj6k0 kBX1FKLlvySfUJGepAFcRV Ndnp0fRDoxZbWdF4H9MDLj UMZdw33niYJ1owJeGgTdqR k6yAHbSTU3CL3ebWkpwyBi t4v2lU5fETNad8M8JWPoi9 M7AWBevjOroPPreBXcNLYx UI9qarBuFO45IRLxYKziKO myJHE2TUU0OCPefZTbz9cg uksgVa1cPHhnHG3vHYikUO 76ABFuBAqvQHDrU8LkC6G1 YEqsESJvUIIyrCZrlG0dxh WinbHhxEp2WJDfTET5ySMi rFfgDLCfWhnkeYC1ASYnMn BoavKow4IfjSc3vHVpQHke DVMfiL5ytQ5nXBVyIKQhij CCKrtqDDIhZJmud8DpSNqr cGljWHNhMzAgDQpcZXBpY0 1uo9QIe4Hey0gfqAfiu9Nf rNObVD6rbEYrFT1Hx7gvOI DmgKJlIQE0RAznr5evXVey KEO7ZERoGuAvFGKoPN4OAs PfQCbdLQx4BJhtGPv9DCa1 RY7YOiDaRKWoLfi8EwP4Gb RtSNp5XZliWV8PIHL5HLDx MTRlBWbaFPC3YADlHDx7YK IgXFxzcyAzIFxcZmwgXFxu T94lwQSgSCchQqWoSPiqfY zzHFUeOMP8FD0IOORkNgMb T1NSY2nHXJ3eKzeoxgRhZY RuznEBBjvbWPGnSJ7WZCMm NEjjATg3huSpNLUyIuRpYS SsH86zc1AKc4CsXN5GUPf9 ikPsztnyrT8wIPBpjaZai6 IzMFxlcGljWHNiMzAgDQpT xIIlfU5cyrQGCNfwVUBvQ7 XykjYnQZeiAJBoqp1ijFwh IGxhYmVsbGVkIHdpdGggdG vqIPOciMgiocPiM7N3dfSd KJ4qOYHAJANviT0wKEUdCK IsQUZwBFBngK3qVDJ8s5Oq oaRfMTAOKIQzaVcdVL14xA BjZWxpYWMgZGlzZWFzZSBh xvShspKpx61kenBcu0VvOY 7nbRoeDRlDAFruAiSqZL7e PPOsmbAja2YlYH3iXGQrtF QmIJGnwrcqmDAiGNk8vWHd VAXcTmAynUiaf5SuXIMhXJ tdWS21ssBmWZ2uNMaxUR9t SEbzUJ1jJMZwCHYeWNDnHa BznTEuUxDhjKRjBaQmG72q KoOJsSYcq0ZuV2rsMY5unJ BqNppmyENpCPGjnVfxk8Zx ySTwLXCqp4QweWMdNSgoTX 7jWCI2Er2gmUQuYEVypwV2 k6CgNZfcJCAsQdyjALAxRM gbp9ZkYRIwiZWJs9VmMP0G XHBhciANClxzYTMwXGVwaW CTt1GwZADJHagiuRjqYdSl aZQvFsN6BMTcqHZkVFZ8JT 2sdPsfEHXvPBu4ZScdIMZl A4MbO8XnROqiSxXpQOzvUF BaEXKaCKbdQUNsZ7EZHUKc CIB4XjIlJBQxGSr3LAkzX8 WLSUSsMZVeQdM1QEU0ArM0 QLr4EVYJIr4tUXnfBxPoEU EyZuY5EGt8EjDvCPLbEsZm PMNzVCSrZVxuvWBcIG4pjF llKNTkTIUiDAZ8CLFpmMIR g1IjZKSjJSkkFiYoWMALGE QSEZ0JYvDFXPIhPrFnvYSd XN5LFQDayzShBEmgwUcskG 9atWAaE3dgLxQmWawckPqa TmVzdERvYzEgDQpcbHRycG FyXGxpbjBccmluMFxzYjMw LJGzrODPi8YuUPALYuYmOR NpbWVuIEMgaXMgcmVjZWl2 HKYmaF7zLj7ohQTjbT0tgA SjRXovQDZod7n1pDJ2wKTd rZE5rHFcvLohDwQtSZ3kdW BcXCPUBB94tSBmijWsOBFk iI3sATKmNDRhKMJ3dwabIU FPANO7oFYzy9T2YRnsZPO1 iW9raZipLfQuF2V2RNZvTJ Luj92jgMK0fsSeOrNsKLDx eu1pjA3fHRygdnLkyDhfjg Gul7P1XHEgc9W0KPXqdkHm mMEjqTShBDGqZfR9CSOcEn U5AERjLOIxfTTaGKXyBT7g VGhlIHNwZWNpbWVuIGlzIG TswPXfeiFwKEUctz34W4tw KJJkjJ7ss9ndBgPqTYSqNS DtzLXqzMR1QJMafC1ydL62 krPfhuBXVZ8diZEzBC6YEL NiMFxlcGljWHNiMCANClxw ZXKfAGudx9WrSQaxhTdoKU JkNdRmJMoTkDnnTVLLQ5hi nWZxMJwvIWBPSFhID8KMZX 9WIGUlwZOLHJX6SP9cYLzt DONeT7XoH6DjjbS2w9qgoU tys9EczDHnZS6suOJlFU1N XHBhcmQgDQp9 Disclaimer (test code = 3942161128) f5dgnQLgLKZvi0dtKMEeuQ FuZzEwMzNcZnRuYmpcdWMx EKmweoOaFSpld4LhP6HxFl AwMFxhbnNpXGRlZmxhbmcx YZLsYMN0vjSqOPVnPHlzCS HuTZmxWa4vbPKfjJyiEaVh UVBpg4aeueTWDWssTkAnU0 80DIPaJHbur3mlz9PbROGp cDPab1X5PZYCfketnUw6gV ggJ15te9K0ZdliY8htDSBa LMVuI8QgTC1cWZRtBrg9WU U4IMQ0KCLlQKGbU5LzEN9c TRVeyBViESx8z1rylEogNX LfIGA0z2lcZZxuaaPzOA7z ny8ieSm9u7syzxMmJLWmLQ PyuTUEGKQrK7LdqGcmNm3q cIe5bKndDaddPUI4Bof5WX 1xcw17zne5xManSXVhxucl ArD2COjbLZOpvrelENv3QT fbWYFpdTG3EFRgiGGhY2Kt MBJmQW8kygc8SOP6PPouMM UvQaL8XEIgwBXbBVHzaSmo YIeeg873IRV2KlPkTX4hU3 Scq2Z6cK4ufGOgBAHjsBRl IaDbHWGkgm9eaGSzPHaqw2 AsHHX4nkQ0hBLfwTVtXWOu KN04Vdkko6MuSkqhj9DlM9 0kaDU9OPwkx6poKQ7tDxG9 ujTpMTikf9vsbD9qErP6KT esOI9xCG3gWOMzlY5xpchx XHBnYnJkcmhlYWRccGdicm OaAw6npDgtRFO1LRpcZ4cq qL8dWyL4ISheR1dtnX9kAG g1QBmmwWK3MFGqbN9rBU1c jqmcb9huADucSHlnFZQawo T2nfR1TFFfsIVhH4WomI0f CVXvKE3hrmxcr9ssMSA9ZE ugWHGeNLK2AhFuNELrm0Wh bzo9RqZik3ZdvNDlAXobN5 7jm538DNPqldLqA5dvfMYa bvobvYSdbztwEUbramP5BF DcgbMjh7LcOEFfPSP9IEvx OMtfwHOlBDVqhKjuh4wxG3 RscGFyXHBsYWluXGYxXGZz MjBcbGFuZzEwMzNcaGljaF kjPEvpXqPwDURbCJqeL3jv CsPxQ8FbJDCsLiQrwXRgD8 ggVGhpcyByZXBvcnQgbWF5 UDxbJ9w3MDGbwvJmkDv3ms QiVyNoAERiVKM3VVcwfTPl GKMbu1TtbakxcTLmHz7bnJ ZhCQLmgB5cSFMcTZIeHShc PP0oxNk3KTYIaSQocJGmOx KPRZLaBZ38naPcCDHOippz s9W5BZhgALTlv5SekOXnK9 lpu7AzFWUyd01qPY7kg2H2 a9foGXV7DS3yo6AhQOXydX VbwXXzPMTls1Unqiuaa3Wo HAZncgOlb5DoXODgimTzhS LnACYnxgHkwe2vbyQrKFIh CZAeD8ErgwtkrYnauyNjEZ Xngg3pezVrRNB3BXGKXLEa WOUrw2PozL9coQZXXHF0vF Iugt5ewpCWtHWzDCEbtb02 PGFuDT2yH6teUZCnCQUzrv EuzHYdr9ZvURNxoTF0dFCu YM3CKuWPd88fOFLzQOAWho ZqTEAesAdjwKZ1qbC0xK9j IChGREEpLlx+IFRoZSBGRE PyDR6fddAwl2SsvrPdlPxz QLNmbVBah6DthDAhy6GixO ucy2OvhYOpcWHnRX9cRJDv clxwYXIgVVRNQiBMYWJvcm F8z0ZaZKJdRLVaSDA8zCmp bav0HUFemD3aJMXnT2deea urAKpxVSHzw2CftH0krYPZ nRAwn5QznCRkqPAJoOPiTE 2efgVvEUwABZrEJQT5owZh PQExa3QyHWaqU1ijG13vvF dtwZh9aSU5KVN6bS1wSpw+ IFxwYXJccGFyIEFwcHJvcH NzYXYmyAymvwLpN6BgrjJy yA1pzVHrluZtHW8bGQ6rW3 F6rUQpBACfvzYjk9lbCJum dmUgYmVlbiByZXZpZXdlZC Afi2NtNZttWUD0MMzpytIi bmNsdWRpbmcgSCZFLCBTcG CebXIoEDR9LYzwblYiqqQd CH4dnM8lsTppeB6pmWOxuZ W6hoklPVPyYTAkgElhBNBn TV0rgUptnI4oBuSvFdAxIA kgHP8aMICzR8glzMBtKUJg DNRcP9dwDdRrdU3veMlaBY xjZjJcZnMyMFxwYXJccGFy XHBsYWluXGYxXGZzMjBcbG FuZzEwMzNcaGljaFxmMVxk IwNdKRYaUEufY1vmGfQzW0 TiQGQoSzFhnEBfP7htJYnz GKJ7OMSdAM5nmIJlAC95bT Ans5yvXDxuxWelnu1vJ45u iRErPTctnFzoMNNnu57dc0 HjWPKuovBbpf0jHMRwxfK1 nS2oQNLjrEwyCCBtsAVfQH Jan5LtXJrxwQHacfOmJZdt DYZxUOBfeWGqkaI9udLqyx ZkooKcSAJrjGksMTKui6Hj ZVHyMEran0Zuot1pjWShCA MljxIXrOsfbCWuyQ8nB3Om GNChZYKeqk6eRCLadE8mVC qdt9WphuzrSMPiTOKlLQVu eoMfqg3tAPFbpEWVOM5LNJ uohKBqy0JeiaKnI7iQIOF9 NUQwNjYwMjgxKSBleGNlcH HhJNTcci30CINawG9qhVtq IGJtuZ0wnN2adVpqpE1qCp WiPtJkZFqbVV7dDXPwM5ex mMYzPJLwQPNzM0rwIiVuaS 9jaFxmMVxjZjJcZnMyMFxw YXJ9fQ== Embedded Images (test code = 4170073067) [facility] PATHOLOGY [id number] 19:23:05* Test Item Value Reference Range Interpretation Comme nts Case Report (test code = 2163530518) Surgical Pathology ?Case: [id number] ? Authorizing Provider: ?Dominic Keita MD ? [...] HPylori ? Final Diagnosis (test code = [id number]) c9maoYPeHZCas3irTCEfkC FuZzEwMzNcZnRuYmpcdWMx SUadlhVnPVmsnRcfWFX4II TbIZ5bvMozdIl9yEkeJHVj pvJ8bHHgXXmwq1yuEHT9t1 dkchjmVLSzDCwkJl3mjIQf dFsyKiGfCAYwKAm6iZ01IR RprQ3zcYEhNMj5TNRqgSTh cdZeTyUvBYLwsRZdgAQ5CP OtXX3rpspyZVshSZjwZBGn wjP2OVHkxHSzD1NaQVHaQH 6wonprXDB2FMmlBGKuTJL8 GtHrSARby0Valvn1KwXreI FyZFxwbGFpblxmczIwXHBh lrWRGvLJZC3KYDFNVMPYT9 qZFILEMB1UKVLCKdubkAIz VIJlONWuMRSYGX9OIYXaS7 xKOvGcOS8ETNVlAFOjiBZb NUNrqrMPIoFIAT4YXD3PKT wgQklPUFNZOlxwYXIgICAg WYEuMJdLX4UOQCGaXNAYN9 RCQNhOMZqiVk0tRCRELL7A I5yAP8INYBJTNG0WJDujDR IdGFKyHOOjWE0GIUykXMBO UH7OERUORRLSMXhNAXAITV BOQVuDYBPER3AWGUmIHSVj brxlNAMmBi6eK9HDZIIRJA wgQklPUFNZOlxwYXIgICAg FFJfUANNP6CZTnQQLN0XI3 9LPJRZBNIWNR9UTSGSRKbV ZB7OSBWCROOJJIDAJ7OxvZ FyICAgICAgLSBOTyBFVklE DS7FNYUQAyBLIEwTHPVoTY lTRUFTRVxwYXIgICAgICAt CY4HNOcuWNHCNU4SAIKQIi dBTklTTVMgSURFTlRJRklF TZTFRNQEHN3JEr1WXLDJBf xwYXJccGFyfXtccnRmMVxz a5ToC0HqLhWgMGvjwtTrVG VnIksstncuDWVgMPP2xcMm LSXwOZiiVAIbHEfdAb9vjZ DoaSthAlCoNJXer0jnnqOE QWtqAoOpB273JABjWZgon1 uxq9QjFJRlyDYwx3T4IYUB brozgPm6m2jqGqNfYfC2wK GgKMaoD1xernTtaRWyG8Yf kRGpjFd9bElcR07fo7G5Ph omC1lcARKwCDHkZ8CzSN8p STUyPpv3GNY3EWQ4HSEiRT FqO4SqHQ9bACEggGKwSXw3 p0rvyNumBNHyRKB2o4brKI mbawV8XL6xvb6xdKw6l1ez czEgRGVmYXVsdCBQYXJhZ3 KtxVmhUi3pnTq1sTwmFfxz CGO3Oyv8VX7ddc81eqz2vZ krAVIwotbpEdB7IRmxCCSx utpqQZs5ZDqjEEMutCA2TZ BthVMcP2ZpRPRsCP7yypb1 OJV4OIihHMCfLjN4KBFxqL IeKDYfzEeiVLxvy887XHZ6 ToPtYF8lF4Mgi0Q5pB8ycN AqHCGhhSSwRbNeCBXfav1j tRNpIJpsj9MrEIR3xqE6fV IhzAJoGRFbWI55Ikuhm6Mt GlawPWQ7LKVimvDej2Qzh1 cxVjSbbkNnT7reR4PxIOEc OYQuZOKoGvFmdwAsn0Rtn6 NaqPIpcYc5m0wgBUZtYPQz vRavw9oqVNG7YTZmA1Q3lG Vzz4vbHWzrJCUlmHC8eyH9 XJOovNUmF9TzxJ5pOICdCN 4hqfi4y8ueVLG2NTxhIQOk TnC1zfK9YRVuvQOgHGBttR bnZGhdj934XTQ3YpGkXNTk j8PeN9NkhLgeC07ziPnoA5 9sKIZsfPombK1ofCbsiL1x ZjBcZnMyNFxxbFxwbGFpbl xmMVxmczIwXGxhbmcxMDMz DWcyW2rvMfUhJKAmuJzzYU knk1EqBLPhPJQpYnlfmtYn XHBhciBJIGhhdmUgcGVyc2 9uYWxseSByZXZpZXdlZCBh mHtsi0UuV6ydUB1bN5FxtZ LvljZsapStLRjiKPIbq0e1 nDLjlEmdf0IajWJzIE59bu KoTKCrZVB4BQTsp0fpCJ37 cqwgLiQyvM11mqIbgxJdNS Wrr3dhX7wowFAwd9Xkc8Ct twTqIKgwd9KdTH0wdRAzrj ahvDR4RDQmnGAlsyIsseG4 jZkcQAFsgT1yzR7qhJfefG 5hVmFbLvPdGIlsGO5eKVXc T6mklZQkNYSmULHqQ0csVc LegA0cfXypSdawnwR3RGVj cn19 Clinical Information (test code = [id number]) Shivani Schuler is a 47 year old female with IDA1. Gastric polyp x 6 r/o adenoma2.Duodenal Bx, r/o Celiac disease 3. Gastric Bx r/o HPylori Gross Description (test code = [id number]) p7puwTShMPFzaZHYIGM0TH LxKH9vuJjvfSx9lLtbEYFl leO4bQSwOHzhl0dxMFC5h5 ubqfQEAwkcFWQiXQ3oGSrf JGSuNY0lOxChYTMuWpMjLQ BhcGVydzEyMjQwXHBhcGVy jJJ5BATwZF7pswibGFjbID caLRBukrW4JXJliXYrD0Jk PSUnDV6hdoioJZC7MHYQRp kjXd5wkGVmtVtyUwSuNeRj YXJzZXQwXGZuaWwgQXJpYW k6eB1KArorPYB6BZSEOyvv ZuedqHopk3IerIHoAPJrHB xcaWQgNTEwMDAgXFxkYiBP UiFrCoO7Goq8AHK2KbN4QR d7ZGKSDGZzZyrzOAO9LbW3 EXx7WSVgMG2zRIkaiSKcTT qpFzozVIodQ911ORumHUEq I0LbD6KsTRaeXrGrABljCC FoTRZdFIwhBNQyW2RQIPBf XQR1PzKfBDQeSTs0HForR7 AHOHTkYJAfDmN7VVMyCyF5 XVp6HVLMDq6yTJwmBpSeIC s0MBQ3VKi5BwQaCPUuAsOu HOZrMLNaAWxekYMvZL6taF ibYEYsZO4LAPVeGStnMWNx CfRuR2WQG7cKFZ3aODkvbQ JjaFxmczIyXHBhciANClxw NPMcSA3VGMMzPJttPPn7tw AaGKGzLnKkNBGpF95yc4CK d7KqXY6TAPw0plHrhnmfnS 3kZHSvhtJgWRnMiLXyjT9r wkLWTXaxABEwI6ZasjQuOA beCTCjax6flUauSIdbNbZw bGVkIHdpdGggdGhlIHBhdG gwvkMbZ8D5utGpAS1kNNNV USAoqW5iXUZaQJBiv8TwvL YvxBdqP3SnyMIzJeRew0x3 lCP3EWZpygZoYMQzoDGaZH Xrks3fUBayGdHsU3B0EXFs NAEuq43jaMY1xcIeNcSljG u7mWReKYW3NQ8rfBlfltQv x3u7iV6zUGLrm5P5ACSon2 P4ZHKdfqCyuWZwpBLyRSCb MR9tjgHrUY50JQCmYLlvJX hmINT3PEZ0WKXrrINhn6ua eshlBc9oCXvzFL1kWGxmIU 83OWQsFFyeIYOwP8MjC7V0 FDhgUNWcOYIhuRPdkI3pyf DebfDgmKb0RSDnPSP6cSVh hHujTQSuYriybVL1RNUzNa ZtgqSxe7XihKv6pKUlQPym WMNnxX3tqD6pORFiAAQyry QKVygnMZKmAAxqz7WmMYxe cGljWHNhMzAgDQpcZXBpY0 7bl2DGx8Gqn8ssqOtpm8Mg pNSxIV5oxQPhXE1Jq5xzZF BpiASmAVK3MXfvt5apAEpb EFL3FRGgZmQnTYNnAW3ZRd NoBRatDCw3KTrwWJb7DQo8 HS3CJaNsCMZmOfa6LyG0Cj LlBSl3GFojFS7EBUU9APGc ZNDzIOejUCB3ROQkHQe7OW IgXFxzcyAzIFxcZmwgXFxu P86hwIWmDKjpXnSdSDyduN lmYUMcLKY9AR7RZSOyJbXi M2QTW9dMHU5wEoygtvRkNQ HxtpVBMdlrMXZgYY0CICVq KMdsWUx0zbBdKVQqRbDfNM LyF27ea7UQo5VaJZ2SGKm7 dnXnujrjlQ9zASNqzjPrr6 IzMFxlcGljWHNiMzAgDQpT dXSwmW3xzlIVRItuPZFlS5 DnfzRsNBcbKBXpml5toEke IGxhYmVsbGVkIHdpdGggdG cfMCUisIngdnCoX7I2wbSw UT5uGTPZBOAolE1mIYYmYB DdBFNoGXDtcO4rSGR4c4Hz rbPaHMFCGABxfOkzSG81hK BjZWxpYWMgZGlzZWFzZSBh urRdvdZyi60ipuBli1BmTE 1blMubUHkNOLueFjHiIW3q AUXzrbUjy3NoOZ1jNRYwfS YpFEYsulhlqWDnEZm0wEJv ZKCxHvByuUpex0AmKZZrBX ygRZ59saYtGS1mGOrbIA1k JDqfPP5dPBQfZLZwFGHdPf LpbQMjNmOkoPJpBrYaW30c SsVGcXFpw2OhJ7qhCM5cpS CiOeespAJrJWOywAbop6Cb xAVmGJKaq2GkjGTiLCsnVP 9qHKH0Vn0ifZDqCMWsshU9 j6FuVAwbMZQmVqeuTCAnAD qfs1RnEWZvwVTDz9KfIL7Y XHBhciANClxzYTMwXGVwaW GGv0SjOIMHKjzbcWeoXbDy vQYjHcL2GBOmlMZbGMF4PC 1ofZutMTQpQRs0KKqsQOLl G4VjK8VbGMxlCcUkTGntPW GpBBSbLTbgHYUzJ4MLFZAc MRD7CrIyHMHwYUl8VZmpS6 PJDLUzECKfAkK3ZPZ9SgS6 QRi3EVXPQv4eVFnvCgYqCK QuJuC0QVa1RoEnNJFiMaNc SHDbVXKwMAcutMPgOP8eeV prEPZfDCQhEXD5EBJaoKEM t0FdNSRaVGnbRvPfUWYWUR YNFX5LCjENAFFzTdGolDXu II5HGAEbepRiVDkxeZdrwD 4hfDWbS9ruOiLdHryayIzz TmVzdERvYzEgDQpcbHRycG FyXGxpbjBccmluMFxzYjMw KKCgmJQMj4QzDFFTOuBtYZ NpbWVuIEMgaXMgcmVjZWl2 WLVvvD6fAp2seZMhsQ6nnB LuXRzwPVHwx2z6oWT3gEZy vGF5cQQbgOyuKeQoXT8jiP MfLYYTFS25kLJsxbWvFZPl qK3aQLWoEIXlPLX5qcxcJU ZJOHK9vYMjt5S4UCmmNIW3 oL2ivZwdFaAoS0I5FODyDS Mgb81vcTI3gmCqPiZcJHWn jk3ppW6rPIojcpEwkShovm Ewe5L1NQGtt3G0XBUjleNr kXApjEFpCGNzSvL8DYOkRp Z9NZGoOWZbpIMkLASrLY0j VGhlIHNwZWNpbWVuIGlzIG DjiXUppmPzKYGzby58S1ff XKYspD7nb5jjPzWaYPFoOK XxhELixJY5ITLkgE7wjY48 buKvhoAROW4jkPKiYL7OWM NiMFxlcGljWHNiMCANClxw AOHqPFroz0NyBQkflPvmAO SaYmMtVVkAhTnlUYEFZ4pz eXVyMKqmUVOAXYlPK7XXOE 1PLNKirBCURXP1VR4pDTwu SGPsE8ZbD2NqaiC5t3ceiQ foo5ZqsZIrZB4ssMXqGS3H XHBhcmQgDQp9 Disclaimer (test code = [id number]) t5obeDYuPBFgf5jdVXKiwN FuZzEwMzNcZnRuYmpcdWMx ZOnaqsVdNXumq8WpB1YfJm AwMFxhbnNpXGRlZmxhbmcx OOWaNTE0lxRaQMDyRPkiTN EbUBlbLh2leGGubXjzHqLu GHCkr2fupzKEBTcbIrWzE4 97UJWwMUebp5ugs1OhXGNv tPEyd4M5RAFSpirnmVv5jU pnI91wu2M0NoinF1tjCFSi MAUpR6OhPG2gVKAsVxy5CY S4BQU4MRHrJELzU1OfJQ3g YLVieHNrUZc1b2pacNfuYR RmPBG6l4mdUPnjlqBgZS1a mz7tyEi8q8olklYlKXSvTB MsaMSNJUVqV6DyqMsvIg5x eGk6bYlbVhgfFQD5Edx1OO 7hus19thm7gBmdVHToisga McU9IOggLFAcvbqlQUd8QX orMVBphPT3TNVrjKIqW4Up YGGvCO9kxvn7ZUV7EFagFA PqHiV3CXQkkETyKTIzxVps BJeca910EBO9TePuVF3kH4 Frt8J1dV3kfBIvTATwtNVg ZmGrPIKzxr4gdEMcIBwwh3 GoQZD2roT0zMQfgHJsLNRl LC43Bzxnp3ZdIznzq5RkB5 7wrUQ2DQlym2jpXM2nXkC7 lhYrJPlzc9mzbR7aLlO5DT mlBZ7tLA8jYRDekP9wyukt XHBnYnJkcmhlYWRccGdicm YgKz8bbXdkLGN4FCweN4pg uB4bGlE6HApwZ4npeD8zIF h6HHyekNM9VTRvgS1eFB9q zyhbr0atGJjoVKdsLFPwqh Z4yvO5INUjdHZyN9TucP9a RUMqXD6crbase8bpCMU1OF ngYJQzLRA7AqNpOTQai9Db mtj9TuDhg7NafHDpDAoxZ7 9ut111MCWipbQgQ0fkkXJl mmfgfMTtsrsuUHfamiK1HR IyojYzx4HpTXTgSQY2DPqo HZtsyAWaOJRwcDkmc7mtT3 RscGFyXHBsYWluXGYxXGZz MjBcbGFuZzEwMzNcaGljaF woSArgDgSaVVUsSFgyN8gj IuLmE5SnYAVqAdEbvOVfC7 ggVGhpcyByZXBvcnQgbWF5 DEnmG6u9FLPzwrGelPs1kr MhAeVpVIBdOFA8KPakgZKm IQIyb5WvmvdvoKZtQi1lvX XjZLDasA8cOCVmWGAzPQcu JP6gvLc1EJGOxTUrqAGkCb DGSPWyTJ75tpBnTZAQbtzs x7T3MApzUGLzi6NdlJMlZ4 gub9ZeYAXav93xCD2xx5W8 w9lbSYY0NP3ti8MhCYTdkE OruWSiOUFbb9Gxqrlum6Xb LDTmquOwn2HtAJDtofTnsJ OlYHWiblDyvz1zfhGiWWPz FSWcU1IdbejxlCtxstQtDW Pyxj1ostXoQEW2CPNQQITk TZSrw7MehX6urRAQNHB7aC Npmg0addFTwPDrJVOppl42 RLDlOT2cI5dyXCTjOJGdgy DdkSMly2MtAWUwlNK8jTWe RP5QSfILl61fVUPlSOGExa BtLAMhdPikdIH4axB0tV2a IChGREEpLlx+IFRoZSBGRE VsQI6snrJdn0DfigEedVzk SBYlsMJdy8AfnRPic8ZezD ncu7GazFRddLVrUK2aQJTb clxwYXIgVVRNQiBMYWJvcm L8b3GmLHUvWLNxTMV0iGpy eoe6VZVttB9oEZUlQ6vpoy lcGJrwSKBvk6SniZ2jiLAI lHLdi4BjuCQmqPLKwFToHY 0qvwIkNUbCKQmQKXT9lrPn EGZxg8XnKSpaS4anN48blN zpbTi8mTB3WWO8vX7aEtk+ IFxwYXJccGFyIEFwcHJvcH QuGQTodJqiymFlJ2KfpkLl jO7zpDRblmMsFH5zSZ1xP8 B4yGRgUIGybfAmb8hwIKaa dmUgYmVlbiByZXZpZXdlZC Twj2YsJIvpQLL0ANfydzXu bmNsdWRpbmcgSCZFLCBTcG AhvPYuEQJ9ZJnerjTjscSr QB6xtF3klWsuvM1xtILjmE B3jjupRBFoFBWmtNamRTTz NO7ftYvghD5tNsAcInKrVT qqLV1sRBUeG5lyjAAgWBIs EYLeF9vjHgMquK0fbEgbAM xjZjJcZnMyMFxwYXJccGFy XHBsYWluXGYxXGZzMjBcbG FuZzEwMzNcaGljaFxmMVxk AgOuGZFxOEdkW2iuLyJaQ5 SjSWCpCxAedJRhD7uySMtd NGR9TQKlUQ2pmQLxYY18vG Ueo6puYEirlYszsb3qZ91w dCOeMVpeqLvqMSSbw97di5 LqLPZhrvOzkh5vEFKsdyF0 nZ9iPKPsoOyaRQXqaTMvHR Sux8SsENkbeLHkucVyZNpa MPLnZZUzeIEnryQ5cjZhqz XdxbDoKXBaqGyhXGEcp2Wg UCOkMRwgu0Vstb2wsNRmMA JzhyTKuVkbtDRcuN6dI3At BFJgENQsaj6mSLSnrM3gST llf7SvcmsdAERbKUCjXLIj fgYnkd3qGHTdkRYLVO8CJB pdcCUdv7EciiNqQ4qIKIY7 NUQwNjYwMjgxKSBleGNlcH FdJQAtrc76XOSxpU9ubYvi GEZyvY3otS9qlPqduA0lEq QiYhXcPZmvXQ5jNUNgC6zr oKXxAUWwJRApQ3dwJjWnfQ 9jaFxmMVxjZjJcZnMyMFxw YXJ9fQ== Embedded Images (test code = [id number]) [facility] [id number] 19:23:05* Test Item Value Reference Range Interpretation Comme nts Case Report (test code = [id number]) Surgical Pathology ?Case: [id number] ? Authorizing Provider: ?Dominic eKita MD ? ? ?Collected: ? 11/13/2022 0805 ?Ordering Location: ? ? GI Endoscopy OR Department Received: ?11/13/2022 1016 ?Pathologist: ? Billy Diaz MD PhD ?Specimens: ? A) - STOMACH, Gastric polyp x6 r/o adenoma ? B) - DUODENUM, Duodenal Bx, r/o Celiac disease and reasons for anemia ? C) - STOMACH, Gastric Bx r/o HPylori ? Final Diagnosis (test code = [id number]) p4afmHCsFIThp1gxSEXpzP FuZzEwMzNcZnRuYmpcdWMx TRohutYbJBbemIupMCY4CW MqMS5fcBrqaZm3iZvsEEYe ccZ2gGShACbvw0juDSO0z6 qqepetVYNaXVsqJm5icEIh sCbqVyVuAWRrUHq8mN29CJ TqfG2caIClVKy2TMBnjUBb gnYkNwWsHUGoeRIqjXG0UI YdWB6ddvjhSZrxQRcxWNNk cnM0OHWrkBSpQ2DhGUSwFI 0kfgxxPSD9TGwbOBBpKYR4 BcPsCKXas1Mqcpt6HjZjxC FyZFxwbGFpblxmczIwXHBh eoYKXyBRQV7TZEBVDFGED7 zBODOZNN8EVYMXQbfokQPp JCQmCHTxTIGNOW1FECFmS6 cWTxCeUY1XTRVxBEPehRPz PDTpgmREEoUUKU8TMP4ZDL wgQklPUFNZOlxwYXIgICAg NZLgVDxME6XXUSQbFMMQW0 USUAsENHbqJd3wLAAHKV0S M1iHF2WJIHKNOY9QKEfkHF DsUXZeOURnKH1LOHabVREF TZ4SULBBMFJPSHgUXXLSQS RVDYlLPAEPM3ACANoKXCNa tdxvJTBzFk7qI3PAUCPRHM wgQklPUFNZOlxwYXIgICAg DDNyWHJTL7WUKoLZHN1TL4 5HGCBCAJZYYJ7JCMYQCThU YA2TCRHBPCWGEGELW9EmmO FyICAgICAgLSBOTyBFVklE VK6JMVGGIlMGUEfFQTHjWS lTRUFTRVxwYXIgICAgICAt WY4PYLibNKZEXU4QQLSESj dBTklTTVMgSURFTlRJRklF WNBTZHKSLU8UXc4TJFVSUu xwYXJccGFyfXtccnRmMVxz z3LzT8EaWoDwSFtysxTdPS WnEnwtifvgOKWvSJA6jsNp MZHoFAmzMIVwGJusJo4isQ IofKjwCpTpJYKku5bydaPG NNsgOvNlX481BQUtRSsnb6 mqq0NpONKhsAWhn7B1GWIM vojxjIp8l1luHtZlOrV7iY IhWBmjR9yiwqCriPQoO2Tj oMZrrZh2bXomI45cz3E6Ui wrA5jlVGWkJPKdP0CcTI2p PSWiRoz9ZRS7CUI5QYNkZT QdB4HvIK3dUJVsmHMiWAj9 g8jnfLfcUXDhBCB3u5tbQN ufbmK1IJ8lzz1vtSt3j3fe czEgRGVmYXVsdCBQYXJhZ3 VsoOdvWe3ieTd2qWvjEoah CCL3Ukb5UC3mda33fja2rM duKUQlenuiWtQ5RQrcNKFx yinrBHx1DZdrUDOquVY4DI QpmUXbM5GiTJYmGL0rnrg6 OQZ5PGrkGSHgGgI2RAIxaC XhLCAryFflYFzej446KTW5 AdVnRZ2bH7Icl1Z9eV2zcI NnSFWhzWKyTlTiVEAyug7g kQRrPPkvn8IuWSC4puZ3fJ PdbNIdTOGvQP12Hkdwe2Cl ErufWTV4SGKqtbIbs1Hjf4 azFeLwuzMkM3xdC6MxVCNd HJAiDOAvRvHhryDyh6Cag9 RytWDqwQl3l7daLLRiVPYl vVkmy8liFNR3WSVwW3Y0fJ Csf9lqLCexKIWubTC8bqF4 LYBkgDNiE0WrfF2xBXKhTS 4kczn7d3udIBT1IPnwXQQd GuD9urV4OUYvjSYtFKCvjJ niBYvou232GRH5WbGiOEXl y1TkN9KcePbfI50yrUcbZ6 8eERVhyXiktP0nqTgnsR8b ZjBcZnMyNFxxbFxwbGFpbl xmMVxmczIwXGxhbmcxMDMz DUetE2bzZpHrUVJcsRgrDL fgm3IsAEAvSBGlTqgzulMj XHBhciBJIGhhdmUgcGVyc2 9uYWxseSByZXZpZXdlZCBh nXsnp9AhG2gnIZ9yA2WutG ItasQybcCjNZmrLCYbe5y9 cDFxrImdf8HhzLDdRE86wf MgMHWhJMI9NTUja6rgKN27 ntbnQdOhmE62tjFedjUaPH Kzi8lnJ5ffiSGmq3Ehu3Br amXpZDwxq3AsHR5waMOhox mbjST2DUYxnPVhnlBcioL4 yAlbPEGtrQ0ljU2xdKutvC 0cEoArShSeJMhiTI7jDSEq X4bjwCJxNEMpDLXxJ6bkGj MelF5iuGvxWxxrnxF2ANBh cn19 Clinical Information (test code = [id number]) Shivani Schuler is a 47 year old female with IDA1. Gastric polyp x 6 r/o adenoma2.Duodenal Bx, r/o Celiac disease 3. Gastric Bx r/o HPylori Gross Description (test code = [id number]) c2brmVLbIPJptTZGWSE7JX XnQF9qjNgvbSm0hUmrCWWa oiB2tDIlLBlvb8ozWVR6w5 pjzdTFMqozTEBjVP1wCSor NEKyUJ3xXmZaJVWcBpPzSO BhcGVydzEyMjQwXHBhcGVy nYI8GYEuMR1cdjucWTtqJG yzNRZnfjR5JRPmfAOoZ4Ca FEQiOU8uyalwVWL0CAGJIa gtNu4akTRayWagDrYrNlBo YXJzZXQwXGZuaWwgQXJpYW g5gQ7QLcdkBHP6HTMPGuva CagbqMjcy9FtrGXoKXSoFQ xcaWQgNTEwMDAgXFxkYiBP HeMcCjB0Gnz1TLV6KeF5MR c1JBDXETAxKxmtJWO0SfK4 OCu1VMYhTQ4lICxuoHSnNL hdXnhoJXecE769JPaxLGZw D7HhB8UlKYefYeWhWAghXP ByONOjPDfiKDBpE8VZHFKx CEV6YpLqDPSiEKl0CRymY2 MGIOVeINQkJaU9WQWtIbV5 NYn4HQPUMy5rGYceRmCsJV v2QMR3HTa8ZeOeXRVjWmMh RAVcJXDxNWcmeVCnKT4luX mlCPPkNU3WXTSyCPqyYCOm KsXlT6MUL8zZMQ1gJTrmtZ JjaFxmczIyXHBhciANClxw WJThAH0LLPBbDMcxFRi7gd IyEYUpClWaZUDjY60os3AF v9LxIV1ZGVa0zuGuasuurZ 5uOTMrpfIfHRxAmEIasV9c ahSRMBorWIOmM9BpleLeEG dzUBMpgp0clCxeNOjzQqFk bGVkIHdpdGggdGhlIHBhdG nagdAmJ6U7hmToPI4pCRNE FSMnjU0iDOWtQKOfn7QagF CdmPdsK8WnwLKxHnHes0i9 hLR2GSVbjoNaAMIxtECbAO Srhj2iQKycDxYqQ2R8XTCv WVOlx24ctAY5mgEeKxDruI j4wSSfVHR2TE7wxAlnncUj p7u6gY8mRYFrb6M0QCLbh4 D0JOUbxvGieEJopBDlKDDx GA8sjmJsOP45KVJcGMgwAT wxAZZ0OPC0UCYhxVJni6dp bgyhNe4wWGpfNY0bBQjeWI 35THGjQIjfCFWcF6EgM6A5 DThoWYQxPAOriXGbvM9die AlyzDsuNa2OWIxFRX8uVWh gEtiLMJsGztckZF8GVJpGe JsfmDfp0GwbZc3cULrDMhf LKUiuH3guO8rEIXiMKQtsz PNEwjrPUAxJGbmc3RpYUxu cGljWHNhMzAgDQpcZXBpY0 1wq2FZx1Ohl4sinIdce2Fa xYWlZS8wyPClNM2Mr5azJH EomPVrVMU5TZjdm6liOMnq DHA5MAKfCaYnIXJmGU5TZo GoGBjeQEm4PPejTPj3XYg6 EU1PXoNvCUGsYzy3PbV1Fm QkYOn7ZKihBY7VZKU5EZDc FORzUBfqKWX7SSIaOYn6QA IgXFxzcyAzIFxcZmwgXFxu I82jmAMrSMteDoXhNZziiK deSZTgZFP7EP0KQJAhWdVx P7FCB8jGIV8sNwwvufVbQP LnaoLPTajtSMPcFD3IWILj FInsFDx9kxXkPAJlTwYkYC IjX92ym5WSh4SxUJ0ZYJr8 ruViokgapC9wDXHnmwFlz8 IzMFxlcGljWHNiMzAgDQpT aJEuaG0ocrIOWNqiDKWgD8 WsmyGkFLihTDXibu7clHof IGxhYmVsbGVkIHdpdGggdG uxUEPmbZtzkpMkB1H5faMr KT3eMLOIARQdsA2tRRPjLM XqYIYjEYFsyQ5rAZB5n2Xn anYnCEHLHCXylQcwEB30jO BjZWxpYWMgZGlzZWFzZSBh nbEeidHhk41mdvUtg5GaZA 3spBujHZlKRAjnHfNjCT3z XXUlcaAob4BeOD7iGGKujD OgAWHmsxdllXXaAMw2aBZh TBZlKoZrhAggd1WcPOOwRV zwLP15ldZbEB1sYUgtBI6a UNvsFE7cALAdFFYpAQMpEh VtrOGcFyXceYXzUbVfU96f UhASdSYox1BtR9ejOX4njU CcGclvsVVeIUWjwItlf2Gy xVVuZXLuh4QqbXWvKMgaIB 9wVTX3Dh4dhCOfZXFlwmU2 j5IdAGqqEOIzBpjnYTRfMI jaw6DgPPYjcXERg5DcML8E XHBhciANClxzYTMwXGVwaW WPd2VlTGCIXijfeSbqLpBl oSRkRyO8SBRezFVcLDF0AC 7ktWcgQVMkANk1EFgpPSWt U9BeT7OpZTxkOtZcEWhjUD VyUGBdRRszQSFkQ3ELQEQp FAX4LrWhMKJpIIj3KMokR1 MVXSTpIYXsBmX3YCY4KkO0 JDu6LRXFAd2pCVczLnWlIS AwIhJ5BDl7AhChMMOzKbAl ATTcDCSzBXecaSEnHO8pbH cjHYStGNZmLGJ5CAYajUYO y7VdRKFvEXeeLbNgCHNPCH INLF0SYcNQMHEzQcUndZRw SU2ZOBPjpxSiVHvpiFbyiJ 1szJVhC5njVvShNtjdcUyj TmVzdERvYzEgDQpcbHRycG FyXGxpbjBccmluMFxzYjMw QKGsaPYIk2LfIEWSToHsQU NpbWVuIEMgaXMgcmVjZWl2 DHJtgT0xMf0etFPqxB1uvS JlAManGVIhs5s0ySA4uBCa vZW9mVIxfLglVnDbXK2txG EfSRZERN46yVEcjvKfUHMf yV7wVDZoCFWfXMU2pbhkZV EMHQR0zYXxg4B3RMzfHIX1 dE4hfKutGuTcF7G4PAXjEF Ksz21plNB5qvEvGnNvBXBw dw1ycB3kQPvvnyLzhLdaxi Wpg2V8UFOrx1E2VVNfxlLj aZWzkGOzMFSgZuX6VDJxIh B7PQOlJIXvsBRkFILzKY2l VGhlIHNwZWNpbWVuIGlzIG PkrCRirnJqMTFchn42D9vq FJHcqC1pf8mwVnNlTGRqTT BarPTlePT2JZZkmG9pmL93 cqElspDPVP4xcCKvSH3OXD NiMFxlcGljWHNiMCANClxw YBChEByxp1JjTDllqAstIX GnZlByVNnJtEveJXMRJ3rl yVDmHDnlUKFBJAqKW0STSE 7THOKfdPCSFBW9EK4hPXqa YBUcE9OvY6GsbiU8r9ehjO kbs7KelSUlOS4jxPXiEK2E XHBhcmQgDQp9 Disclaimer (test code = [id number]) b8ltdNCcXMSxi9duNHOzlX FuZzEwMzNcZnRuYmpcdWMx EYhoabQuGYmom3BpW6MaLj AwMFxhbnNpXGRlZmxhbmcx BAInKQZ4paItTVCrMTtyUC YdEPxzQk0kjJZxxFzqKgDz MUZdu9dwheMGNOjyPjPdP7 33SGTcKFmqh4ejf2XtKNOu lMJjo9T5VWVSomsmiAy4qN tnC84eu6P5GmzwV0lwWIXm QFXwP3ZjZW4wHUNwVyf4MW D5FCB3SVBrIFGvR5PoOH7p WUNcsVFfLDt2m5diqOkeCB PrISW2q2hlORmvthZiUQ6r mw8rhFp3i3znbiUoCIIxOY KfsIONZPUlG8YkqLmuBy7o dHp1xEyjUpruNKM4Vri8UV 1azt29wrq3qUlaFZXsgoso YvA6FBbjECYdnevsKGz2YE ayVEXiwID2ANDfoIIeG7Hh VIBpKS8fuep8UGD2GYcsSG DiPzK5UPAcrQRgTGMysZvp GUhno245YFK7IyLdRP2gZ8 Rhc1O1tJ8npLUcPEAegFMw TiDiYPDrig2iwUEqMSjfa6 EcVTX3azJ4gDPlgEKfKOCv KD33Nwfmt9AeNtgly0ZaL6 8qoKJ1DFwxz4tfCL8mMyZ5 xaNsUKvid2mfzV9qLzH1IM wsWM0fDH0zDEUbkT2belwm XHBnYnJkcmhlYWRccGdicm IiVu8sbYtzZYZ2TCgyP5th yZ0vOwT6JQeqO2kxgB1pAJ f9VRjrlJQ7HPNkrK6yLT3q qijhx1smEHciLMfgCSCmgz M5kyY0NLOqbYEjZ7XokS3d UCYvIN6lhikix3niZNR6TB jtFIPuHBD7XwIwATUku8Wk ffa9LiLrc6ButLUbLQziD7 2zw560WUIeviToT7vstRJn wvuqgINuvmsyLBkridM0OM AdryMxd1PvSJMwNPA5TFyk RBvpoBJvQVSuyHyrh5ziZ1 RscGFyXHBsYWluXGYxXGZz MjBcbGFuZzEwMzNcaGljaF siQWhqQxVrUDPdKAqlC3te VdLgS5McAITwUiVbeNKqN9 ggVGhpcyByZXBvcnQgbWF5 XFlqT6g7JMNkfcHduIi8rn IcKvMaQIBjJCD3BDayhHEu GJFgn0CgmsxytKLhKe2idU YxMFSheN4qNCArAMAzYQdp FT4shOc0WZIQuRScmUSkWb BRKSCtUH34xvOwZHGTfnah j8W2PNxlDEAjb4JklNBvM7 nyy1RjWMBbj17kOI5is5E1 w7lpWFG7VV5bm5XdOEPnaG IuyTOjCXYmd8Pdvtjao7Kf FQLbxnQhg3RdFPVejqArxS KjHXTgfdGvfu8ksyCdQZNh ELYoI8NmnohwgVxfnpMtMT Iwri6jipRgKTO3JRBWWIWs SUIaq7PloW7itCYMTOX5mT Hbko1onqOUyZRrWHCzra10 QDCsWI7eA2nwHXTgPNBqza SsaENfd6OdFYXquAQ3tAIy RC3FSfTTa07nNMWgIYILai VoQPTbmNfwiVC8dfU3wI7m IChGREEpLlx+IFRoZSBGRE FdVD8ftfCsq2EjtuTutRii ISJfqWBtt3GjrNMja9JtwD oyj1SywCXekKMnAH4uSRKj clxwYXIgVVRNQiBMYWJvcm X2d6GuABGdBVPoJMN0eVnj ayk0IVOuzQ0vHQDdS3amcy nqOIrgJGBrv9TrmE5jjNSU mCNjy2EgiEJscROAjLZrZX 8gjlUjCSeXQZlSEQZ3cfFi BEXlp2IpSCcpF0amT67vfA qgeHs5vLU5HAA6cB6gEef+ IFxwYXJccGFyIEFwcHJvcH GiXNEqwMzgomXiJ1LgiwNz mL8pcQKrocApUZ0nNX5zE0 H2iXMgUUElrfOfz7cyBOww dmUgYmVlbiByZXZpZXdlZC Ocq4JhWBtrYTL7UAemkkCd bmNsdWRpbmcgSCZFLCBTcG KveBBlZEV7HScnkkIpblWs AN0fuQ8deCmitE8rzYGidT V5epvnSNQgSQUpiXwsWTNj ZA5drWyfqR1rSbPzMdRxWQ ssRT4jQFEnH9hhrZFmGDZq YFFtQ3ddIfXiiQ3jdCspOI xjZjJcZnMyMFxwYXJccGFy XHBsYWluXGYxXGZzMjBcbG FuZzEwMzNcaGljaFxmMVxk MdMzRSWlKUjaU4oeVgXaD9 LnRNElHuIjmUTkP7sePLnk MKA2EGZfIN4xrERgIA05iS Cbf8cyRLqxsVyhpp3hU34u cEScDHonzHrtOHDhc07lk3 LsCWJbrtFzcc2hNMWjakV5 gE4jTADhpPdlSPGucMYyVQ Dzb4NnUUmtfAOfjtKwMGtt CTTxBGVwiNXsiqK7vxNuxk JyozAbIQAdsLdwHJIvy2Fp RZSkWNphy5Sskv5buCEfZG EntlLEyLdavNDdkR6nT6Nt GELkCWAzcu1mTGPxmM1vXA wop8QcfzwmYIGkPBBsYQMq puCpgf6kPWPnvEUXLL9SVK qcgSZps3IyvkUiI7oETGV9 NUQwNjYwMjgxKSBleGNlcH LfFYSvjw09WADkzH2dyFwi FRHhrU3kmW8abPtvjQ3xNu VeOnCjLBnvXH8bFHAeH8uk nJKuFDMcIOKrX4lsIqOzlG 9jaFxmMVxjZjJcZnMyMFxw YXJ9fQ== Embedded Images (test code = [id number]) [facility] [id number] 19:23:05* Test Item Value Reference Range Interpretation Comme nts Case Report (test code = [id number]) Surgical Pathology ?Case: [id number] ? Authorizing Provider: ?Dominic Keita MD ? [...] HPylori ? Final Diagnosis (test code = [id number]) y5jmjKCaFIAds5ehUJDojH FuZzEwMzNcZnRuYmpcdWMx UMvxvxNyFRdkvGnwIIC0TB UeEO3usYyzaLl5rWgnMKMy xhG5tXXzQBmjz5ypOGR8i9 digubwRAHxSEttNm9znGEe iRsbTgKmPZSlOZt2pP12UD XrsL5rwNMdTSk4BEFjiECz oyEjKoEjGNHoxAEjzAY7MK QjEN4mwmuoXSafZQnkLZHz zrF7KCAtlIMbM8WsJCSzJC 5pipzcYUP6LGahYNVlMVK7 PtHwILKoj9Nxwab3KmObuM FyZFxwbGFpblxmczIwXHBh vvVGOrCQZW4KAKJFWXBNR4 qXYSSCFP1XSMWZTngpvEMa VQOyYBZxZDSBHG0HNKMcA1 eAZzYaAX2ENVRtUZRpyCBb EEMvaiFTHkCVEL3NVY6OYK wgQklPUFNZOlxwYXIgICAg MUBuXZdSC9OVWYAhEDQXY2 DKDNeETIpuPi7yJIJKWO4C G9uSZ9VDVLUNTN8XVQlhXR NaKNScKQWmEW2USLhoPHQK AF1TQMAOPCPYZPzFEAFGTX ILYWxXAKQLQ3YKTXaSCRZj ctefCSNeVh2yO7PKLVITTM wgQklPUFNZOlxwYXIgICAg TIBmWKSBI9QOLrMLYY3HY3 2DKESZEWFDUU4UJIIZCNaL PV0LCABFMRMGUWZFD7PinQ FyICAgICAgLSBOTyBFVklE MW9ZUBAEWeVEDByOLIHpCC lTRUFTRVxwYXIgICAgICAt QM0BHAndKRGTWG0FRJPLLx dBTklTTVMgSURFTlRJRklF FOQYVKPTHK9XXd4YVTRWBc xwYXJccGFyfXtccnRmMVxz i9JlK3RvFdMlKIimieDsML SjLkukvtnwOEYjUES9avIo YBOhREmlXVCgXDejUb0ncA CnsXwqJlFtBSNow1ziqlUP QKohIpGqG594XXYnSUmer6 fbw4WbXJDpjRNeu2C7NGEI nhmicSr2v1rmApOzHdX7gD TmOHtlW6chekTahRBrL7Kf sPSdwOb8iSnjJ32bs7G2Dw sbU2nnJMHwJSWiZ1KzCX0g YKHyVot7DEU4ZNB5WPMvQQ NcJ3EyYR8eORUofRQuNTz5 g6mwaOtsSVFzINW5m1cwPR mgryL3BO9wwr6wrCl7n5il czEgRGVmYXVsdCBQYXJhZ3 LquZhhRo2vvHd2yFjeCirh XXZ2Fzn1WC3few90mtd7mU hiCAZclcfjCzH0FEkvEQHr wetmTCa5ALwcDCDwhNX2FB LxzBVxW8InIWVyWQ5ajwb6 EQU4BQlpIBWiYaV0HUGmvO VmCODsoLjgQBfyw411BPS8 OhCxMR0bE5Hzb3D7uZ3gjK KjXKRxhFQwVeGfXUAjok0l iCZeCCeow0KiCBH4whA2hM IpsVQzCPLrSS75Bbrry0Sn BgsoBXD2IZQkzcLvn3Lsp9 xuOaFrswWlU9jbX1HoPXVt PTVuAYVjBsMuphDwi2Bdg3 JnwLRkaWv4s2ysVTYkHKUv eXihh2qwOCN6AZFbB6I2zD Rty8frSBuaSBCvuLR4siZ2 PYSvbTPyS8HvpS4hZQTwDL 4gjui9d3qmYNW6CGyzVICq OaX4ttA0QNLyqDCtXTGrtT bmFYzjs496XFC0LsTfQLFl u5VjN3AshWjgH51rmQhyV9 7fPDDmrWleiN6nlLyelZ6v ZjBcZnMyNFxxbFxwbGFpbl xmMVxmczIwXGxhbmcxMDMz DDfoO8eaOdXzGLBmzDcoNB upd1IjTZHjOARuZhogzaSz XHBhciBJIGhhdmUgcGVyc2 9uYWxseSByZXZpZXdlZCBh mZwdv2RoG5wfLD7eM3RnoA MndsTgvfMbYEcdPZUri8z2 mAYmgLhrc1EyxNPnSS65wu FfAQIqJEP6DMZwn5ygDV88 yyljYbSgkA70hrPsrlKvMY Hxw5yhS4jiaIGqr4Kzr9Zv boJnVCzak9EqWJ0yzZUwsz yiiVV1RJJbkRWqhlHsjpO7 yOtgTIPlxN1vpK2adGtekO 8dIfDoZjIsZTwwBM3xGJXk Y4gstERwSGPyDQAsW1oaVh PzhZ0gmOwsGttghgF2TWSw cn19 Clinical Information (test code = [id number]) Shivani Schuler is a 47 year old female with IDA1. Gastric polyp x 6 r/o adenoma2.Duodenal Bx, r/o Celiac disease 3. Gastric Bx r/o HPylori Gross Description (test code = [id number]) w4bmtJLlSWPpkVVYBAO8IJ TkLF1gyCdrtAf8oNlqRPGa arQ3xWPmZBksv0vyKFM5c1 denkHFHpxoCVLmXR9jFDzo MPVmKZ1eDkCpDJYiYsBcZH BhcGVydzEyMjQwXHBhcGVy zUJ2QUMqOV6iozjqZEzeIV ptUCWjrcD9HPTlmGFsX9Dw KWKcTZ8fbfleDWZ5GEJARu nyYu8ozOJcuYdhYyHgHwSd YXJzZXQwXGZuaWwgQXJpYW r3xB8GBvvqOFH4DMLNRppg HlrzaVips4DavGSoEFQhHB xcaWQgNTEwMDAgXFxkYiBP HbUlNqU5Vgg7LVZ1MhF2RE d3GDXQPUNfZlmwBRM5DqM3 WNe4EOIlJP5cJMmykCQkSH ilMyymPAdrQ573MDxgFIOm I1IgH2CqNXlaBjBuAQwqVV NvPQQdWDqqKGAwJ8RLZNNw QYU5LhWjWLUmZYi2SPanW9 GEQUHxJQMbWfW5AOLdYpI3 OTw5VVBRIh6cPXdtEtCaKB y8GUU0BAb0FuAmZUQaVtTv LTZyOUPdGFwkfXKyPR0otS qeZHAfDQ4ZKXBuNQsrRSPm YcZwH7YWF7zVQS7sVLqziB JjaFxmczIyXHBhciANClxw AXTvRU2TGRXsHXlpRUj9ca XuRJDnGxMkNLNiQ12wh2SY s7EhRZ0JJIy1xhUnyoubqC 4sQYVbjwEtEIuWqJIrdB4c utDVVCclETWtU8ScehLcGT joBMHmtx1uiWkxCBcjDsPo bGVkIHdpdGggdGhlIHBhdG dddrTxD2V0oxDdCB7kDYSP IGOuaU0tOIHxYHHnk4AouD YlwXhrT1PjvMXhDlDjj6v4 eKA5EQNumeVaDBSspJHbTU Tyod4yGFufCuFgN1S8IBCy ZNXlq28jlRI2yxIkMsDdqR h9kSEvDJI3AX7xjVysurBf t9j2jV5lLDFcj5Y1FCEdm9 P7YHYrtqBrgAPbqJAcYWUd HM8thiNcZM78PMEgRMmgDV oqKEJ9SBY4OSWntJCbi3fi gbczYz6oPFunOA0cCOdvFB 42DSKpNNecNETaC4KxY1V8 ZVqdATUfEQMqzPZrrZ6qtj MkjqSgzIy9XJSyWRF5xQBk rZxsCFOkQebfsHL0DNDkQj IqsrJty4GqkMl5bPOkSQhh VFLtnZ2tnR0wFENlKVEnkv NUOneaXEGuJLmnb8GqBHyx cGljWHNhMzAgDQpcZXBpY0 4wq8XRw0Yvr8eieDnfl6Ck rWZsKN5qdSLtGT9Ze4pzRS AswXUfCIY5FFusz0upPBvg XGO3HZHrPqBhZQJsHE8KPz GuSGepIPd8IRebDMm5CIj2 EX4FUrQpDSPvAbk2MiA9Zp RnFLn0JMcyCF1HVUD7CZCb YRWnXFwlYNY9UEVgDAo5YR IgXFxzcyAzIFxcZmwgXFxu D55yhEGmFYfoBiPiJRdzrP odEMKdAQL3RO3YUIRlKfPo L3MUR5yJWA3nCyeiopRbZF ZxqwYMUqeuKYYeKR4LAKZy GKrfKYm8efRtKOYnLtHzGX BgJ62nk8XMh4FtLJ0DQMp7 bvIzwoxaiX1bGUKyvrUzc2 IzMFxlcGljWHNiMzAgDQpT nCJfvP2qtoRJJQvtODZzK1 EcziEwBQpzNBQqaf4nsPze IGxhYmVsbGVkIHdpdGggdG vbUOQnhLrnntIdA7D7lrQy CI7oONQDTNRunH8pLZSuOW LoCSViGMRseL5mCXE6g3Hg weEoRKJVGTFynBaaGK65dA BjZWxpYWMgZGlzZWFzZSBh fhVuwuJci47ncqAgo2PzIP 0rnHvrAOcPGJwbUaXtIV2a OGPlshIme2DqIZ8wCTXxrB IzXSStmaaxeRQlHOy0sGHy OEXdPqXflLzcf6NsZJAuYL ymTG14bsZzMY4yNYuiJT7f NOutMV6oMVUnHOFjQTFpIh ZmdTLmBgVkcCNvSzLdV66t AfLEdLHaw7TwD9zsIR8kaM ScZvvccLOmBUItjErwv2Zu mGQpDZPpi7JhoWTwRHkhNF 0dBCF6Dc4ywGExWTAlvrN8 l4RpRPjjAZEsTrqcFDXiLT vpq9EzAHDtcBCMs1QfYL8B XHBhciANClxzYTMwXGVwaW XBw3BwGZMQZjnsmCjiEgRx jYPrXtX7JLCmqAGlVMA6QN 7ozIcrLTCsBSx2VJebNWRh R9JmY3WaQFdhBrNuKIfoTC EdZSPnZYjrVCNdR0HFTCMj ACK7YaXnIZNvRPz3OLgbE9 MSNOAuHCUaBfH3YAB7UwW3 XUq2UBJJFi5bMBslNqXfBH QrBbX6EPe2PaPxQPAsHuRa VEEoVKOtICmveQBtBX3lwZ smGFXwOMLaLLW0OAHswPHM u1JeVZUbJOfmKvAvPSMING WZBN8IFlTWSRElUzLdlRIh UH9TSDLlwsUaFZhyrZdyrI 1evFLaM2hpLiDdUlbbcIfl TmVzdERvYzEgDQpcbHRycG FyXGxpbjBccmluMFxzYjMw RENilPESe5AmHVXIUwBjDU NpbWVuIEMgaXMgcmVjZWl2 LAHknX8bTs1udQEaoV3wsW KcCCzzBFPqv1f7iXD8uJNh hEP1nPMlgLvqRrIkGG3adZ MvQYJTNR31aBYatbJfURPs dG1rOTRkDUIgUWB6xajuCI AHKOF0nNEzy8W9MGkjZZG1 bC4xbOrePkGwI0J7JYVaRJ Gcv84kiMA5svSkTpAoSFIx sw7wlC6sYMbavpEwgTinrq Rap3A9GGDqt3I9VOYtaeWe zXHbqLPvRRPlDwU1PRIiJe O5KEApJFSsoRUxCPLdSF6l VGhlIHNwZWNpbWVuIGlzIG AowQKbjzTcXMMyfq65Z9bp XZQmaJ7cw3lrYzYcJCIiPW PctELvhDK3VLXjyI1jpN85 nzRbbxHZQW8xxAMoVW8UQK NiMFxlcGljWHNiMCANClxw CRYaKQpse3UhVOklxMwuGJ NhLtJgVRtTwLttXHHWT0rv xWEdHYkeALQZEDvJE4ZVRM 8QKYGdoUJUFYF8BM6dLYss PPUnD0FeO4GtznD0y2xsjR yuv8UwnXLmHU3vdZEoEP6T XHBhcmQgDQp9 Disclaimer (test code = [id number]) h6pvbUUjNXVog9ruSHQekF FuZzEwMzNcZnRuYmpcdWMx MGarxzRlHDaav6EmV4NrOy AwMFxhbnNpXGRlZmxhbmcx VFJwCCP0dqFkZFLlXBhtNS YmQVxnLb0nmBVwnGjrUjHg ETBtr9qwsiQRXZczIpSkS4 68AMVnSWsyg6lmn2BhHKYa vKRri9B1LDWCxdagpZy9mQ foE32do9M4TffgL4zbQTMl ZNZmL7TySA6pQJJwWxn4XO O2MMA0QLQiSZXsH9VwJU9d YMLraANfITi0k7assNmjQR UeGLH0d4ozROvbasDgUJ2e dp8reNj5z9jtchJqYKVaLS YsyVYPGAAaT1QzlJyuCv2f cWx3mGqqMitvYJU9Sbj0WB 7fyo67ajf8iOvqXAAxuavo IcH0NYdmNCCzkqblQBq2BL ngPNLzjZZ9XZAalWAtR2Al XTLxMV0cnit6QES8PZifOO KoMeE9BBYfkDQnRMUywThr RCvav252WLM9UwHdIE5cL5 Nkm6U7uL7wyIYwWPBklNFt SkFaTJFxot9jaEYyNUzjm7 LhRQB5clC6qYEupAVjGZCb NS33Msmoi7DxPqkll9FvG2 2nzWV5LXugq1vuKE7rLsP5 zvRrBNvhs4cfsU1xTfV9JT tdCB0iEA0vNPSwsR7uszyd XHBnYnJkcmhlYWRccGdicm VoXu9slPutHIB5DUjpD7ec zB3eViI9UAdeX7hokL8fPD j8MQuuiQO2NKTvhL8rEU2s bfvyd7ibSHyuGXacRCLgjv B0vcZ4GGMnnAMbF3FbmU5k SNRnDO2ttvrtj3onBPF3PU kmFRUzKDZ1DmQkVWYkk8Xr inx7HtIaf0JilMUsBYwhC9 5uc897YHHrycGxA3ltjMVr mzkrkEGllqamWJfzrdT2PX SxdfWhq2JsGQLpVVO1KPmr TDegkQMbJEWfzNvkd7ipE4 RscGFyXHBsYWluXGYxXGZz MjBcbGFuZzEwMzNcaGljaF ipTZugGwEvFYIuHRgjK9ft WkGfI9LlTLZtXsWvpVHiX0 ggVGhpcyByZXBvcnQgbWF5 ZEapV5i3ILRlkqQbiYn0km ZeCzPpGGRoEDE0QMqgaOFt QGDyw0WsbgzuaZSaKo5obK GvCVUdiB9cNNVxJEQlHMdh IP4kaZq1LHGQgPYzcQPfMk MUPORqEI38ixJzVZHVtchu o4A1WLreMMSoo4DlfBJrA8 fgr4NyFBRqp07cZT2wt7L0 z5ipHPX1ND9wt5HbEGYqlQ MohOUrKATww0Dupjond2Hu GFCstjJfz4KgKQRtaoKpiB LpOSMzwsGuyq0urmEzDWFc GLYwS3YiyhzakBvxhhGcZZ Hfgc8ialOzQUN4WMOKNIBt RXTsh5YabB8tqBRQAJH9sW Invi6gtiLSkEQdDXJjsh85 IPCyVV6yX5fmSOUhESPqqe RnxSIii9BjZCLhjGA2nWKl QD8JVaTSd92gHSGrLBNOjw LaHOUdcQvzjGL8wnT0rK4m IChGREEpLlx+IFRoZSBGRE GjEX2ebdBai2DvsnUccFfd GBByvXPpw6PtqQJbo0TuvP ysx9LhrFBgsBMbXA9iNEFe clxwYXIgVVRNQiBMYWJvcm Y6l2VrNFVeUVHoCJE8lQgb krf5RFThpC1iYRAkA7vfmo tzEDrvPVZly8XdkC9pjLZM sHQts1MnlHRmzZWWlXCxXO 0ilhKhXFkHVPvTZLD5ylTj COAkj9CtKTypF4rzZ91fiS ucdPv8sMB3AVK6hW9eOnw+ IFxwYXJccGFyIEFwcHJvcH KjPCMvpBvifdCqO7AfthWu qU0odJSmycIpDE4lXY6bV6 X0mXWgYYVyceWkq7wbBYvq dmUgYmVlbiByZXZpZXdlZC Sib1RcVKtuFRX7IDrzgxOx bmNsdWRpbmcgSCZFLCBTcG JksFSaWXE2YXjcqvFvqlYy MS7xfF1daGfdvI5suKZlkY A3gxmtSYFxLKIvsTzaKKKh TV9ptIyrvZ3eDeWlSyAnAZ wlSK5oRYPlV4embSLkVQLi FDTaT8gxLfZwhT2omBskLO xjZjJcZnMyMFxwYXJccGFy XHBsYWluXGYxXGZzMjBcbG FuZzEwMzNcaGljaFxmMVxk OaMtBCNbTIyvT2muUnApA8 NjOQAnXkBavWJuA6pfZOep JMD9GMJnQN5boJMaIA81vR Hxy5kvQTapkAzbeh4sC64d lMVaUYxlzWqtPNHcu58tw1 WmKEVrlsLjlr1jHNYlczK4 cM4sUYLfzSgdPNZvcFRvTE Aip8IwFNhxsHKfjeLmWBun LLXiNHIkjXWgeyM8xcPttf EmocItVCYumBgkWAXhc0Dq KJMmNYxue5Jdqc7trLRhIC QkleUMmDaiyKKflU2qZ0Xi NWWjIXJgzc6pJQMxmF5fRH cff0EuznxtJGFrAKRyNPYi kkUgjm1eVLJknXUFLW5XEL ifzRWoa4GrhzKiY0jCBAY2 NUQwNjYwMjgxKSBleGNlcH DlZYPxgk71FCNwoE4jkGjr URLfjP8ljP6uzVwhuB1tEw AzAjGsEEovAD0oZDBuY9tk hPVtTPFfSRKhP7viIqNotN 9jaFxmMVxjZjJcZnMyMFxw YXJ9fQ== Embedded Images (test code = [id number]) [facility] [id number] 19:23:05* Test Item Value Reference Range Interpretation Comme nts Case Report (test code = [id number]) Surgical Pathology ?Case: [id number] ? Authorizing Provider: ?Dominic Keita MD ? [...] HPylori ? Final Diagnosis (test code = [id number]) [id number] FuZzEwMzNcZnRuYmpcdWMx UAeeglToLDshzDdsNQD2MR AxOA3jdOhmqTz7cEeiKPAk erB5mOTiFFxpw0qsHBK3v1 civyvaNKGfDZevJo3gmJLj pRvtAyPoXDPrZPq7fE06WZ DktH5thZIoEMj5ALTngNZj liQkNzEoRRNvqKKjkKW3EZ AuTS4lfpheHGuzIUwfKHVb mkG4JEWnpCJuI7InAVKqDW 7tbmtrKKG3BCoqGNYmOHR8 FcJeAIMsq0Jnzkq3NsMooU FyZFxwbGFpblxmczIwXHBh qcFNUmDIAS8HGGRMETTBZ8 oIBQRDYW9YEZPOGvltnTWc BNZoTRVnOPHVCO3YKFHzN7 tIGkEqKI3VVUVfJALahXBx OHGqdgPDZnGFDO6KTW7TDC wgQklPUFNZOlxwYXIgICAg NIDxLYgQT6OVXEKgJDWIV2 YWHXtFWZlnBk7dYGTWAB0C P4jYL3OHNYCSMX5CPJwzTF UaCPPzQRMgPY4YMEkoPTXE HR8OETEICNOJZVeXSSITQY QKJTkUVVVEL6MDJArSSATu dejgAVZpPu2hD8PMRPBCIN wgQklPUFNZOlxwYXIgICAg AVGeLJWNG6CMJcAOJZ2MC1 6TEZNCCIRRHT8KTNMJWDlD PR4DWOXCCDVLIYQUC3JsaP FyICAgICAgLSBOTyBFVklE LN6KUVBYUvBJGDjYIWZyTH lTRUFTRVxwYXIgICAgICAt YO6OYHriZCAAPI8TYDQURl dBTklTTVMgSURFTlRJRklF GSPTISVZLH6GAk0OMWQWPt xwYXJccGFyfXtccnRmMVxz k1HkI1UmOrGuNKmlsdHbWU GpSccyqbcnSLHcPOG2wpPp ZEMhWXfmPNGmRRioDe4qoW NdnQvvApDqMOXrc0wycdBD SNhnVjNkJ016LCWsWPwfq5 wlz6VsSRHvxVBzr6X7NUSD vsiskQx7z5syXeWfPaD6qB AiTCigU8tjcaQybTTrT5Mb nGJugNv2iAbyH36yc1S3Ip cwW7vjDZIkLDNlW7ZcZC3f HDMjFkf4PID1FEC2GXAxVO FdY6RtPL9ySCBijNKnCLt7 d3qwkShbDYTzIHX7p2chEE kszkX5OU7pfs4kfGu5r7dr czEgRGVmYXVsdCBQYXJhZ3 XfvPjlIr5ktPa3qOszDdvs DZU5Dxc6NX9hqq45ofn6qA xlPMOtfujsOxI7UUthCAQw xktpEFu3WNcnCCQtmUE1YJ YsvGApF1AjTTErMI0vxgo9 AOA5LXngRFGpZpD3DDKweB HkCOYojMjcAJupl130NWF7 PqVnOR9eZ2Wcr3W8tE9chG YxPRXzlLCeLdWuPVDcgr1w zXQyTBgnk4NtUXK9brQ6nO DstLYdNUQwEO81Tgwrh7Ag WetiDBN5YSIhupYqw9Pxj6 dyNjWfplYyW5qwK8HxJYRi NREwCKWoKkTdgkCuq4Lzt4 QpgAHphDj0s4qzCKFuJNLy tPqmo3jnKSU9KBKqM3K0xA Yub3ycMYpkTUIecOM4tyR8 MUMsvKAdU2MbmD0qDNVsNR 0qzjq5o1xeXDQ2YUhiOTOj NbB5rzV8VCYauXSvJSHfvD zaNFrbl495SZQ8PeDyBYXf j6NaI4NsuIuuS49ddXyzH2 1cZZNhyWynrJ3tjKskeA2r ZjBcZnMyNFxxbFxwbGFpbl xmMVxmczIwXGxhbmcxMDMz LKnpL4dzXvOaZDFzmTvfUC sdd0WaCEKvPAIjMrzgejUh XHBhciBJIGhhdmUgcGVyc2 9uYWxseSByZXZpZXdlZCBh vMwny2GuU6ahCJ9cF1FatU DbnhJiygWcHSjtJRLou1u5 rJLywDjfw8RpnOFwXR95nk GtETOqGNR2PYCfk2wcIB23 luiiLgLvjS91tqMfuvYoVC Asb0mjF9gvmZLjo7Aag8Uw ksTzYGxjh4IeQA1gyTLrmr bhrAR4YZPxmBCcexZxnxN1 pJuvAIJrrF2qjZ2cqYrdeW 2cHzXhEfJgTAxkWX8zDBMa P8ykhEEzCQWiBYMoH2boOn HmmI8moYveGqrvljM3QXBp cn19 Clinical Information (test code = [id number]) Shivani Schuler is a 47 year old female with IDA1. Gastric polyp x 6 r/o adenoma2.Duodenal Bx, r/o Celiac disease 3. Gastric Bx r/o HPylori Gross Description (test code = [id number]) w5xhmBKoSVIahWADXEK8FZ DvZV0itAwttLh2iFhdQRQe noF0zBIhDPktd8tnGXF2o9 insvPLMfjwWMFnKS4tKNpd NWTaUO3gIbOcBNFxUdPqAS BhcGVydzEyMjQwXHBhcGVy lYE3YNTdWM2ddaurALbcJM vhXIJdmsN7IDKtjIIbC6Qb ONBkUM5jeoppXML5XWPFUb ftTj3uwXOeaZjyNrGwFfLk YXJzZXQwXGZuaWwgQXJpYW x0zZ7APzwwVDP9OCYGTcya AxddaVsmc8IyaFOzQMKuZP xcaWQgNTEwMDAgXFxkYiBP XuKdMqT0Hot0KIS4VxI3NZ u2OEIQOJYwNchsMEC8WjL5 CNb0TSXoEY0jPTrvwSOsLL laXulxBSxzO604BAjfATFr A8EuB9LoCNjxVsIxMMkhNA IsBHCeYQsnRLTaC4LIBQPx FDA1TjUmBTKuAYp6WHzgQ9 AUHEWbQJGvPlB4JDBdKqM1 LXr3ADAXBt6vVMgkIkFqDW l2RSG1LHm9QkQnSCNjGlKh FFVhKFDuNLcnbCNxWB7kgH fpTCFbBW5WYLAlKQliCEYx EjJpT1XJC8eYPC6mGHjzkQ JjaFxmczIyXHBhciANClxw BCEeGU5FADOqRYvcJKl4dk QxRYWgYpEqVXHsI52hr3NI d1ZpEE7OVBx2smWlglkhgS 5gLDXdvnSdNCzIeNMleQ1p xcMFFEkjBOHxY9YvrwZyNH lgCGLyra0aoBcqGCsfSsNs bGVkIHdpdGggdGhlIHBhdG saulSbR8W5eqQlNK5xHIEM WMIblK8fCJLmTXXun4BkcP AkaYviF6QcsXKnCeMgn3x5 aSL9HKUzcyVnMUFtjLAqDR Zbnh0dOJosOvFyG5V1JXWe OIZqf25hlUN4ywGcKmOegP b1cDSsAZU5DT8tgVoqhiHw w4b2jL3qGZSlx0Q5GKKsk2 E2ILVebeCzmZAgiEZeIFJc SY4groKcKD58RRPxCLhjHO ezBSQ8BBF6POSfoKPxr5fv fnilMo5mVPffVX8jBFgoBN 14EVChOJrlVLCoO5NyU2X5 HAfuVQIjGDDvtTJyrB8mwd WbhtGzzLt9DLIaHJF7nOWu iWxtNUQsGkodxXT2XIRxFo JcyhZyh9CouZa9wSSqOZqb LBJysW4tqS0aKTZxHMFzxe XRGrccFCPfRMjpd4UxYEii cGljWHNhMzAgDQpcZXBpY0 6lf2BUe2Jmj1oozOemm0Lf lHHyYG4xkLElXV7Ly1asUE LscYEzFTJ5GFkpo4vqWVye NLQ0MZCoNsJjNCOhNN8EOg SbOIbhHKd1RTvfCEd8ICs3 OC9PJmEdXYZrKxd7KqY2Gh ZeJQo6THkuNE5MAAI8MVXz UCZyWBmqSUD4KELiAVy5PF IgXFxzcyAzIFxcZmwgXFxu P15diIRpOLatBpDsVMtpqP acHCZxMMS6FK6AROUsRpHp M7SBD3yEBF1kXllwhuDmFQ JyxqVBSmjrZHVzZF5WOJIw CJmzZGl0kiPtCBVrDxLbIJ YuX60hv0AFp0StBW2BONg1 upBwfajsvL9rPBFnolYwp8 IzMFxlcGljWHNiMzAgDQpT oUSufV6uuyDJXYidMJIdZ1 KqilTzOGyyPBVfrf7rhFlt IGxhYmVsbGVkIHdpdGggdG xaXDXexFxjavRyR3C7acYj JA1kFCSXQVDsjI9zZRTyMA XvJHRiCHRwyJ2fUUT2s5So aqLdYBCGOUSxfCylWX30rS BjZWxpYWMgZGlzZWFzZSBh idZcsiGtr66dwoLdk3TtIR 9pxZpwDShCEUacBoRyQG4a QTBacaXhu1XrRO1iAAFbhH NnIGExybpxdJLkQDo6yASt SNUwBiXgsJhns1GcNQSkHU kuNP72utFzEI3cUOuiRO2z RZdrHF4zHXPfACZmQPYiNu BydIUlLqJgsHMiGzLtX60r IpEFaMUkx5TmM1ujOF1mnU WoDjrtzZIaJLOjySvfp9Kf rGUoINEry7BhlSJiQLjcGD 4sYNJ5Kd6pkYJjCNOmaiC3 p5RxYXijAGCoJiagYLCcZS liw3GpKGNaeEJRm8LtFM8K XHBhciANClxzYTMwXGVwaW IXo9JvKDNGIhbizVwhLqSa bEWiEgJ1SCGrlEWlUMS6UI 8lqAraGKZlDFk1BUkpZGQn Z8GmS4CjYNssSuPwWImmBH YdNEQuLXftRBNwB4FFIQDq JKL1HjZcKBGbJDf4QFtkW1 RKPDXyMPMqSxM8RDO3SeR1 KHd1ZFXGXy7qAKogMySiAH ZqMaU0IEm1OiHrXUNyTtYd ONTiGULjNKubjKUfTB7gnG lwTNKlPFYiIFY4GZZzdIHU t2IeWSUkZUgcCwBtPDKOSV NGIP7OSoIMRELjXmGanGPj HB4DMZPqomCiLYkjgOmfnB 1xbETsC9uiSwZkRrjmhUfu TmVzdERvYzEgDQpcbHRycG FyXGxpbjBccmluMFxzYjMw KVCxyTTBf0DpUWJVGtKcNJ NpbWVuIEMgaXMgcmVjZWl2 LNNkuS1iKo9mvHLzhE7fxY DzMHbwEAHtx2e9fNQ5yFLg iJJ4uRUolAifFgHgCQ9jrL YsVRKCNZ64kPVjqdDlQRXe jY6iUMQsTUOqZCQ7icuoMC RBYAW5wTJar3B0EIwwWZP1 qV6tjVlaVwAaL2U1CTFfAO Pwl95zlUB1wvBiBuJrJGQv sa5uvZ4mAMleylDqrCuqhv Zyg4P9SCJqn4R8AKUkdoQp dBPweSWwIVZwQeG1DDBwWk B3SYAqEZXakDEmKIMcIZ2b VGhlIHNwZWNpbWVuIGlzIG QdpGLagnXrILJijd68T4ld HOYnmW2yq6zpBmNkITHpTO RzfLQxgAN8KMMopW1csO82 jwSakkOSTD6rpJAyZU7LAE NiMFxlcGljWHNiMCANClxw UAKuLWgum8NaVBlqbZriTJ AhEgWtYRiFyBtzMGUUJ5qy zWEmCQnbCBDEWAvZA1XURE 3XKLVeaRNRWLZ9UI5pFDno CKWrB9ScE0OfjkL0r2wieO gfu7XebIHpXD0ncFHkVI1Y XHBhcmQgDQp9 Disclaimer (test code = [id number]) m8apcHWvNTHuk4ouMFDjsX FuZzEwMzNcZnRuYmpcdWMx RAfeyfMgHNlsq7IeC9TtIo AwMFxhbnNpXGRlZmxhbmcx JTYrTHH4rbEgWSCdCAdjNM GmDNfsUq8xbQMbhMzbEaGc AYKee2uateVGSZluQhSnM4 56DRWdIWigr1gzy1FjZOVd aJFlo5V8KBXJhmmrlSn5aP uwX37lb2T3KvyxZ0jmBDWp YQDbH9ObZJ7qBLPbOjm9EP N4QTK0HVHbLBHqN1NaXJ9g HTOicILwVHm5q6ndhNmoCM XvFSB4v9jiWMbfmyCoUB2a ye1fiXw7a8ecynUwOUZtXB JltTNDNSFrO5QwpQnfKg1q yEs9zFrtHnwbWFJ8Ohu0GM 8jgp01gpq0dDnyBJIuxbcm RgG3AZecPOLzwdjoXQt4UI liZHSqwAM0HKSzuQBiF9Hm WHWnFJ4icvq9JFQ0QEdtZL BxQrD9MTRzdUYmGXMqvEbw CPzlm434HFI2GeUaBE1aE9 Afl1Z4fT0wfIYcZAIvnLDn UzDrODOdqb5biNYfKAuec3 BkAPX0eyB1qIFkoKBqQEOs AO95Gtgpb3RqIdzrs1IwM0 4xbPF5GVcbz6bnYT4fCrT9 nbMoWPowp4wuqK4xOrP3TG tiZR2pYQ3dBAByrF1albpd XHBnYnJkcmhlYWRccGdicm AbQi1seEflTQC4WBpvL3fd tL9fWfL5BUdzW0awxI7bLM g0BGnaxKB6ZGNpsQ7hUT5t rxpmv6ntEDfbPPvdFZEfey U0cnJ4WZZrxOKkN0CeaG3h CJXcHS2llfwns3ybFXM2KN bcEUOlHFF1JlUpBWWtl2Uz mcx1MlNtv0FxgORiUBpeH0 0kb756ZNVuyvDhK5ffaBZy jotgqJWlkcfsGXrlikZ8AY AphmHrt4DtOWEwLKF6ABie LKrudXAsYSGbcHcey1isI0 RscGFyXHBsYWluXGYxXGZz MjBcbGFuZzEwMzNcaGljaF jmLDqrBfBsXBLgFCbcP7qu MrZgA0WrRBStIpEetEMeW3 ggVGhpcyByZXBvcnQgbWF5 WCxhB2i0GSXmotHylTt9ov UdElHfZCEiNZI5YGojkCVp NISgm6ItazzxbQHrDv8zxI XdFMTibU4jEBEkGCNhWPkc OB3koJt8JVYPsWOfnHJbAd OCWCAuKK42ndEeVJUYsgeb n2N2FFkeTLTab8XrrFDvF9 dud7MqXEMqv25pBG4ho8H1 g1wtPQK0YT9mp1ZpVLYnjV KzyNNrROQbh7Bithdmj6Wi RKNgthOwm3TyFANyelSyjW HlLERfhmGyeu7qniRbVSDv VAJdW0IovmsprKduvwCfQC Ymvz7qkbXwRVM9AAOTQOBy CBCcf2PmzQ8miCPDTPZ5pR Sjbk2bodNDzWRaSMPxjb70 GUIbGI8wW4lnMUCxXMZcmd ByiELrj7HqZTRnaGV6aVEc MC0OAqPTb09cIDCoOYRUyl MlYPPdoSytiSL7jfN3sB1u IChGREEpLlx+IFRoZSBGRE WjQD9oeuMlq5YbbqLbtAub DZTlsCNpb1OegRPas2VgbR rrv6NtkXRhlOWtEY1wGNRk clxwYXIgVVRNQiBMYWJvcm D7n0WyGCWcKZOoKDK6uIbq een8UFOovH4bFCVcA6zgou pwHKjcJCCub3JjnV4llRBQ pWLpk1HtqZTghTHQpJAyQZ 6yeyDlFZiEONqHUTD5weDm ASQrh5TmXJffP0iaE67ekR bjyZg3dFG3NJQ4uE8mHmp+ IFxwYXJccGFyIEFwcHJvcH OlROFcgZbntrNwI3DhogKp iN1gfSGhqiJoDH8bLK4wM6 D4bVYvFMUccePmb0abXGnh dmUgYmVlbiByZXZpZXdlZC Vml5ArXXnaUXS3RExsjoUe bmNsdWRpbmcgSCZFLCBTcG OuyUXdBNV9ZDiykxWxzkXx LT8drQ7gfRbrwS8zwNJnaN A7wwiaMXZwTHGtnPgtPNUj PE2vfDiscN0sXoQoUzHqAQ ykLS9xUDEuJ1nonUYzPFUf KSLzZ1wfYuLzpX9aiPnyDD xjZjJcZnMyMFxwYXJccGFy XHBsYWluXGYxXGZzMjBcbG FuZzEwMzNcaGljaFxmMVxk MdGaNGMlODoxC7isXzEzA7 BgDOCaYsGclBDdU2jpQUzk QNP1VNPmWZ7doOKoGN14zW Uyv7bySXkcrRiymx8bW20n sHHaXNgrfJpnRICez46bg8 ZfQYDkjqYpcs9xFHFnukV7 hX8uYMMsrCrcNEVbvJEnXK Zyg4AcHUtidZFvxiHqDImn SHAmRKCgqAIrfyY1lmBfkg HkrhMrLZDawZjrLBBxm3Kc KRQdVYtmg8Sxjz8fhUNiKS SurfVLsDpdyBUjoU7pB0Oj XFYyZCPozc0vBVKetF7sTS frh0FzwluhCJMoNXJoARKu dvAzgb4wRPWrfCYFOB4CAZ xasIOyk8UohuWbC2yPICI0 NUQwNjYwMjgxKSBleGNlcH PvMIXdtv44GSFirL4qjRvf GQPbnS3qxY5rdZyuyS1cDl DsKdAaVRydHU7mUNZuK2tp uCYeCGCdDSIqL1tuWyNmuH 9jaFxmMVxjZjJcZnMyMFxw YXJ9fQ== Embedded Images (test code = [id number]) [facility] [id number] 19:23:05* Test Item Value Reference Range Interpretation Comme nts Case Report (test code = [id number]) Surgical Pathology ?Case: [id number] ? Authorizing Provider: ?Dominci Keita MD ? ? ?Collected: ? 11/13/2022 0805 ?Ordering Location: ? ? GI Endoscopy OR Department Received: ?11/13/2022 1016 ?Pathologist: ? Billy Diaz MD PhD ?Specimens: ? A) - STOMACH, Gastric polyp x6 r/o adenoma ? B) - DUODENUM, Duodenal Bx, r/o Celiac disease and reasons for anemia ? C) - STOMACH, Gastric Bx r/o HPylori ? Final Diagnosis (test code = [id number]) m5dseFPjTDIet1tkTHTajT FuZzEwMzNcZnRuYmpcdWMx AOqcbtIkWNyyqDtwPTW2NN ShZG0hqIylpZi5iMubIUEv pbW6qRKuTNpwo2veDKW5q8 fayqmgYLNoNAseDm3bkZKk rWdzDiZnGUGpMUp5jM70EM WmsX5heKBbBQi2OGUyoUXl cgNbLuHnCTKtaHHkqTY0KV IoUO7ozrogLExpEZchQWNq thB0WJPorTIlL5ZoOTMpBV 0djyjwGWF6PSkfPGVwEIH9 FmBsWDHpr0Oirjp8OcPrbL FyZFxwbGFpblxmczIwXHBh caWOEsUFZG9QLZUQVZJYO6 oUUMJIAV6AULWRNhpgzEVt OZMdZVSwDXPPXT7IGPTmA8 zWDeMiDJ3YIYJeKFBgrCXr EBCzmrLUKjOSKX0FWI1TEM wgQklPUFNZOlxwYXIgICAg ZSUhEJsNM7JGONEzEBTEM0 HCTVzITZhqJj6bYJMHXD3L L3dON1HNEEIYAF6URSphOK MaXPXmHOFeOK0VYBpaOCAX ID2AEOAHTWWTEVrUITDJSN WNJArMBXFYA7LCUHoJUJCz dfthZWPhPb4cM1EUTBIOIA wgQklPUFNZOlxwYXIgICAg YBWqVFNLU3KYXtSKUI2BF3 3UOQDQPIZKTT4GCCYGUVtL IG5UWKDUJMRXWNNVF1BdmA FyICAgICAgLSBOTyBFVklE BQ0WFWHXXyPGVTsBWUXpQT lTRUFTRVxwYXIgICAgICAt JB6HZRoeRTIRDE0CVJBIXt dBTklTTVMgSURFTlRJRklF ENJYZONLIC3QBj6VBOEJKk xwYXJccGFyfXtccnRmMVxz c3HzS4NoMtNrPAxlwvQjKD OfBlcqdovcJSMlDWF6yxUb RFLrRHngICOtBStyIs8blW DtbIgoHeSgVGPee1ewduQR OPvfGdDlF682XCUxOZjaa3 lwh8GaBUDkcWAlk5F1MZIW ebldwVo0r9hyYuWmPxK4xI DyYDjnT2bqrlJowIImZ1Ge gBEysQb9dIedO09dy3F7Nu psH9vcZEJaWHEhV5ZwKK0q SEQsRpb4XAV3MBV8KFQzKE LoP3ZqPO1xORAbuLXkFUk2 r1wdtEqyJEMnPMJ7r6rgRI czqbD9SV8pxm5xeAi9o6us czEgRGVmYXVsdCBQYXJhZ3 DnpLcpXz8xrRk9vYkyAgta QDJ3Veb9YK1saa91bnb5pH pkZLCteuvgGwO1KEdiQFFc yypnWSv7KXwrJRThpQM7DW UomHUqA5OaBWIvMY5jopl7 EJZ1RCygXHLlTjA0JREwuL OqIYWhcOulGFkqu340SWM2 XwQuLO4vD4Oii9I6rX4ccN XaSQHotPYdNqZcIUOnen4h zVJpCBayx7CtIHE0ibX8pI VbnOMkCTVvZD52Uqlxe7Hw FbkkSPF9PVXbmbXxh6Iys4 lyNeOdvfRpF5qnO0CfINNu WGKkCPWpBvLcnpCme0Nox5 NuiSUcpDu9e0qpEBAxXSBf mXlwt9gsUJS6WFSqY4M0uX Jec3yhMVxjIVPbhTL3eeT1 NXVydHTcQ3DdcF2qWACxWU 7tgxm7s4kaXJA7AMljAFIj UiG9nnY5MPDayHBlZVHadS baFDsxe904PMV6HrSrWEEs w7MnY2KqzIwoC03cbPzgS7 3fXMCzkKvtxF1vvBipdF4h ZjBcZnMyNFxxbFxwbGFpbl xmMVxmczIwXGxhbmcxMDMz TUbwG7noXmAwUXDxbOgqOX bbg1ApMRRiLMVqUhjyduFg XHBhciBJIGhhdmUgcGVyc2 9uYWxseSByZXZpZXdlZCBh kLazw3EjL8doMY8gZ9LhtX CqopDgnkQmVOqrPHYid4e9 nNYtrGzrg9OqxHQoOH10hm DuKXJpMEI6ONWzp3zqQQ37 hbviGsEdsV16wdKfzsKeDL Rsv2vqP2abiLQbv9Mds5Ts qtNrPRmtq2OjDB7cwAUnxg hjcED3VWQyyCFqfxPzagS0 rJzmXITxgA8rjI4buDkluP 0lZyKgAiFpLYrbYS0vPOMm O3zpyNWoPSPeTYMyA6nqRx WynY0jbJtsIiwwgzT6PDLp cn19 Clinical Information (test code = [id number]) Shivani Schuler is a 47 year old female with IDA1. Gastric polyp x 6 r/o adenoma2.Duodenal Bx, r/o Celiac disease 3. Gastric Bx r/o HPylori Gross Description (test code = [id number]) b1jmbRNsEBEewEAIFAW9TT LeNS9lrFeroBz4vFxwOYAs zcY4hQQrADlxk2ioQWW6y4 mozoTUSvrmEZDkVX6uZStc YVJmXJ8iTbJwHHYjYrPjSB BhcGVydzEyMjQwXHBhcGVy iQZ0DIPlJT7zlqvvYDmyYT raRANenlQ9UZXrrVRfZ4Ry TMNsTR6ujzxsBRW8LOHUBo piKr9pfYTxdNygRkFpKbNl YXJzZXQwXGZuaWwgQXJpYW f8sP8IIamhAWX7JDTOAler YmmfoRrll3LumLWaKUZiFM xcaWQgNTEwMDAgXFxkYiBP UjImZbI6Vla6XPG0OyG0ZN a2SUGJRJKkZyjrHOJ3AuD0 JHp7KJRiUQ4zFBiyqKUsLC jpWlpeNPkyR718FTnyMVEl V3ScS2JqBKbzVgYoTHthBB UhSBJzZDmcVVDmA5XHKWCl EBM3BqVwKKTiYSf9HDxfN3 QLFCPeXKKfLsY1FINkXcS5 CZf0MMHLRy6fXLqbBeKmSH g6VXQ1PFy6VaVeTTFnUtSq NCVlUQXqBSrxwEDbXN9btU tcBBJvBP2LDXFoGTokLMAd OdAyZ6DGU2iUWQ1dQYzbtS JjaFxmczIyXHBhciANClxw UKIeEA1MQMMoEHlsOBr7xp XbUCZnIwJsGXHzK59wf8MD k9PkII5IKCh6yjYrdjxdqM 5xMWGmsfWwIVvEbLDwjT0n xrLATQhyMHNeD7JamoTlSU guGEAnxv6plPuwFKlrHlVe bGVkIHdpdGggdGhlIHBhdG eddhJeZ6O3gbCnYB3sMETN YJPcuL3pDAZjMYQgf6MltW RjbQvqJ6EuaUFeBdQya6k5 iYQ6QACritAdKMHcjNJtXN Khrw2lGXxePiYpO3G9VGZf SNQec43gxDX3ifIpSbYezD i4jSXfCGN3VT3wgEhcjhCu i5f8xF6rEEYkp1Q4XYSts3 O0ZXZujlVykZDfdHGfKLSc LZ2gbfIkTZ21XFLvJKcsDK onFMB6KND5BWYbtXFqn6yd shhaBx3kQRcxHW1fNDfmDH 68HOMlDRsfHYAcP9ZlL3V1 RZveENKmVBWakQJosY7rdo LhmuAqvDr8OEFyYPZ0kAUb jVcyENWbBrzhpBE7NCDbXu JvbcThk7GcsIy1tCXcTGuq VFLgzD9nxI5pEXSgQOImrx NYOrcvJKLiZUwgy2XjPEyz cGljWHNhMzAgDQpcZXBpY0 3qw0QKu4Ydn3zcyAkex6Uy wZOzTO8dyOHuGP9Lv7yfSX ZqoHHbVYX5FYour7vrITnv MTX3UWXtRsMdMDFrVE2ZNn UxSEhlZFm1IIlsQZd6GKi5 UR3WZbKeNNYjVea9LhI8Rg BeMJw6PPzhEP8NMRX1MBNo YZCcKAniMOF4RRAuVZm9VP IgXFxzcyAzIFxcZmwgXFxu P19lcBFlDJvmDoCkLUefrZ fwPEXpWHI0XE0ZAGJkGzGu K4YZO3lQEN0fUgipliHpZR IfkpEVBseeKOKrMV4HLHNz VZorQUu1tjPmMZZhDtBvNG XzP24ap0ELm1IbUM0MRXw4 amQfeijoxT4xNNDjceOep0 IzMFxlcGljWHNiMzAgDQpT sRAxtH9umsNRHBejPZGnT1 PtihRnUBepGRIxjp7qvOow IGxhYmVsbGVkIHdpdGggdG yhHJOztCalztErA3J9ckGt YP3oGRAXIJVssG0jYBJvDO RrIZCbCPSpiV3uMHP7f5Sl bdMhLCAFQAMabFjfTV98mT BjZWxpYWMgZGlzZWFzZSBh cuVnvnEvz54eiiNun1GtYT 0vpYacIYwMSCygIfQjBF1e XHOrukXmm3VcBT6jDUIsoX IyDLHrueqfcJFxTHc0mLRy NLPpNoCqcVjac1WkXWPlYK vcDI10syZeIR4dCAgjKN9v CWsoHA5sHBWuCNIjXIVcEt GcpERqLqTkcWPyPaQfL16y QtWHtPNyu6NnC7ecYZ3dwJ DkOtjofSLzVGKjxDpfw1Vk dPDxVSDjs8HqxCHeXYfiLV 8dYIJ1Qq2ilGKhYRRlmnI5 r6KtWYeoLPJvKypdODRvUW otl9XsLQMsgKFGk9PmDL3O XHBhciANClxzYTMwXGVwaW FTn0SaGEIUWpvasRvoLcZs fEJxOtL2TKJhhCHdHIS3HL 9jnAbnEANsKTh8GMalRDEi Y5QxT9LlPQukAeWoLDxtVP BcORZuBBgzCVFcJ2YWWJLc BJC5LdAiXGEyGBj9YGuuH5 FAQPJkZOWfRqM8HQU9LeX6 AYu9PCFSTr1uWArrKoMpGO BwWhE8KHr3EyObWQHkGlQz LIPcBYRiZDteoQTzBB8rvS cdSXIuMOBfAKZ6RBGtyWIO s1IiTPUdAAmhEhJhEXIYAA PSHX9SIeSOSMVcFoJwoDNb XW6QAMBhceArHYleiPzcmD 0jqJPiM8onCjOsUqyvjBgv TmVzdERvYzEgDQpcbHRycG FyXGxpbjBccmluMFxzYjMw OOYewZNJe2PbSGAZOeQpJH NpbWVuIEMgaXMgcmVjZWl2 FMWxkK2lRn9ykBYbqB3hkB DsERdtOOEmm4n2eQT5bGQs vLX2xMCirYokSuFmYZ1hiE QpPLOSIF78nVUwktMzBLOx iP9aUOLxVXUuXIV0uhjbTY MXABR0eJEvt3U5FYneIBQ5 oD1xwIafCqSlY3X7LAOtGP Ylb60hjQP7buFbUzCxNKZe wx1enD0gJYndzmKclJcdbg Qze4X5FGMbd8T9VUQhftLr bHIuvGQgBSLwFjQ4EXWmCt D3KJPgNYLpnEOiEIZzIP2k VGhlIHNwZWNpbWVuIGlzIG FcwYVfgvUoXLOltq03N8pk ECOwlO4ld5mvFiFqOLHqBP FgjJZgcVK0GSJhiI9jvS89 wzIodyFKXW1pwNSlZN9ZEA NiMFxlcGljWHNiMCANClxw APGfQLmac8BgTKxfwAzhTA TpPfInGArGfIsoHFLXW8ib xJMoTMevZJYURJnBK0CITU 2OWPBvkBGJXNC6GE8aKBtu UTIoZ9VaG4FojaW9i2bubV njq3PfzQVtLX6cuNPmJU8R XHBhcmQgDQp9 Disclaimer (test code = [id number]) d7nifGUsSWTxo6neCGBzvM FuZzEwMzNcZnRuYmpcdWMx XGmjxiPhMLcbt3FhI4TwLh AwMFxhbnNpXGRlZmxhbmcx LNFcTLR8cyGvAVEdMZobTX JxMKeaZm4spCKfzFkkQfXk WCBrc6hwdrWMYPrtLzFxC8 53DGUvPXgai8wwc9AsOPVu pWDap5X9OGLUtdiziUs0aG yvX85hw6Z4NknyU8cjTPVm WKMwB2TlZJ0dPNVkYgw8NN S0CNI4THUnJJDdM4CbVP2v SJBleCChLUl0h5tisOrfIM SdDVF1m7ohAHnqrpDiHR1t mx6ihYl9n0guzrIzAUYbYB KzwGWHKDTrI8YnpExmUe0h fZd5uTokWdmqCNH5Vvv7GO 4jkj19upd2eYrgRDTsewyp XfS0ODgfSJTexoamBVt6WK qxENVlcJA5DTCyyRHwW5Kb FFYaMI8ivgr0GVZ6ABksDC IyQxP2EWTmcHZoQLIocFeb QNjaa257KQP1RnXyAQ4kD8 Rpa8S1jT2gbXDfMPRjvWUf MsQvQHBlxd5kqAPhDGhmw5 DxCND9nyO4aFRksLGcFMBx KP06Kyzua6MjYupwl7ShA5 3zeTQ5VJogn8bkPB1uPjX8 ggRgALnmv9xnlX9tBnC3QU qaPH2iUI3lLBMjnW2tmilu XHBnYnJkcmhlYWRccGdicm PpBg5pzYgqMUC5XYtbA4jl dA7xCkZ4ZLxdX2pnnE8fBL k2TEecpAQ2XCJqiF0jQP6t hoert8yqNXltLUamGNElay O8ygS8NQHqgFAhO2PojZ8d PHUpOO9unikie6vgCFT8AV wpCDZsCNA4BiVxUVCsy5Vm wgo0KeGxv0KxdVMfPIoiH5 8nu959FPOapjTkC5kzqJDr hxfwxRRdfbbsLWpkyvO2TG UwkfMsu0SzADTnGGG4WWua RDfiqPXiAAUrzTjgv6bbY7 RscGFyXHBsYWluXGYxXGZz MjBcbGFuZzEwMzNcaGljaF pbKHqpPvJlRLJxNSwuA2aj XqVyB4XwKMCxOkStwTZvX2 ggVGhpcyByZXBvcnQgbWF5 LHjvF4u7MRUvpzOhbYd5aq TaMcKaFBNnHYG8EDwloPFf RYStw5YulbnpeHNvUp6nlR RgIZFqbS5oAWVmNTRqFJnj OA5lrPw1VFPTeYYmgDPvXc IBZSFaLV05bsFsDTKIkyhn r7D1NUbnIGVnu6VqeFWrV4 doc8GqTYOiv37nCV1nd6F2 s9byEZA6HJ3lm0LgWKRihB LbjQVjIVTsk9Eaxgmbz3Qp GJJcekMmc3SlHLMeqxVenC IqAUMrhjKrtl0yccDeVQTl QGMdS5SlioywaSkgziWzLX Xkwo8ykvLcUPT2ZSTUPVGp HEIfq4NubM3euCIQLWH3uY Udrv4sxlCLyKHmMCGdbx68 XNSkZG8bR5lxMZNbEPCefg YaxWMmj8IfEQIvvIF8jANf HS2VGhUIa81aYLHyOBXWhe ZtBWFddZrudCI0kkA6zK9x IChGREEpLlx+IFRoZSBGRE MuTN0kicRnv4MfjtQrcSwb RYLpgOTic6UgnGTpu8CkjK vel5IdtROmrUOrUA3jKQJt clxwYXIgVVRNQiBMYWJvcm G5i8YhRXVxYOVbQRZ8rLzu wem7PSIgbB9pTYNfC3qlbe yeQDqvKBJbl2XupV6igRPP eKGqc0EqgNWwwAOQaHOcYV 3rjdOhIGhHRAtWAPD4vwGc LAVli9BxVPyyP1fzM92blA txaFo5iYJ2BEE2hN6sVfc+ IFxwYXJccGFyIEFwcHJvcH PzYZNggInfknNsM8AnoeKk dB0ziDSvbeVtDT2tTZ2jS6 M0rASpOUVmbiHgf3waERvh dmUgYmVlbiByZXZpZXdlZC Lxl0JyAHipEDQ8CDswwpDd bmNsdWRpbmcgSCZFLCBTcG RiaQOoGRD4LXarpnQlmwKt CD7bwG0tkJbuoL7ppPLrnN K8hocoIVZiDJFfpFnxEPTl HI7qwBjerH8eHhQzUlKcHJ eyIL7sEFBoR5eovOTeMXGp IBNtC8gwWjDxfY0msZxtDY xjZjJcZnMyMFxwYXJccGFy XHBsYWluXGYxXGZzMjBcbG FuZzEwMzNcaGljaFxmMVxk LjZkKDOjZQgkQ2ifNtMaR6 YoQNLkHnTggUZaS8nnLQxt ISC1BSIgWZ3chZRiWR32hK Kyp1dtYYzjyCbeaj7qP76f aHEzUTfizFkcPDWse04xa8 HfGWGjsrSdee7dZSZsztT8 uC9iSHXkzGwnVVHhkTEeXF Wrn3BdSKxuuTEotgSwJNdi XZShNVUegUBizsI0znYueb SmaeSsZRVorJgaQAXew8Za EVIwAFkge6Zkep1wnVZeRS BndaXIlTlguXBytH4tJ9Ge UARtQZWnpj6bDBMwhF6bZO rfa4GgmoddTSYvWJElVNKf snObiz4qMLXzcEATCS9OKV ehvLNvp3YtwqQtT1hHQZA2 NUQwNjYwMjgxKSBleGNlcH BnUTZjus65PTBauV6fjWte SDNcyI4meM6bjYdyjN5yFk TiIqOnNIevXF3kQRBnH4uj kZJfOSEdDZYdM4apCoCftP 9jaFxmMVxjZjJcZnMyMFxw YXJ9fQ== Embedded Images (test code = [id number]) [facility] [id number] 19:23:05* Test Item Value Reference Range Interpretation Comme nts Case Report (test code = [id number]) Surgical Pathology ?Case: [id number] ? Authorizing Provider: ?Dominic Keita MD ? [...] HPylori ? Final Diagnosis (test code = [id number]) b0bgbHHcADHjz7gzMBEozY FuZzEwMzNcZnRuYmpcdWMx MMzhpmRbRPpduOybDKQ2NY EoCM8nhCakvFm3oXwxBGLh cfL3oTTqSZxzu5gfMUH3m7 upystrITWzRUlsMz9ohQVr bQpoXgNwSJXzCVe1yQ78LQ EtgI3fvLInYWs6RQVjgNUn fdLtTnOiXYKbwXWmeYD8KH JuCD4bnrtnTFogBQflOZGv yhO2IRGglZDbI4TaQMXvYH 9ejwzsJKY7CHiuEYNgKKH3 IgJbDIHny4Flboi6ZhEoeQ FyZFxwbGFpblxmczIwXHBh ilRMTtXVTR1SAJHNNOVOT5 jQQGQGOS2IFQUHEoaslPSi YRXdYEUqHUJFSP2OUGRhO9 dMMwBoGR9AGWDsHAAweCQa UHSwcrSWJxAGBH8QYX2QRD wgQklPUFNZOlxwYXIgICAg NNQbVDcVI0QUWULfNSASE7 BPSWzTBGzuRx6rXZCKUU7Y S1xDL4XAXRXMBF9MWMwmGL RrIVGgONHxLI0AHXmvWIXK RD6NXSCXJSALDFiHTROSRN RETMeCICPOA4IDYUmSPEXe kutbAZJkMb3fK0DANSVIWM wgQklPUFNZOlxwYXIgICAg JOTwBPWUO1CLIiDPQG9GT9 6JGSBJPBQZRW1KFSTBXViV AP9CABIAXIOLLKDQA2VdfJ FyICAgICAgLSBOTyBFVklE DX4CMAHPGpZHFHcLJJCvXL lTRUFTRVxwYXIgICAgICAt ES1MEXyxVLDTNR2RMUVCBb dBTklTTVMgSURFTlRJRklF RBMLFGDQRI8SMj5KMAIZAl xwYXJccGFyfXtccnRmMVxz n5DsN9UjQmZzLDdsxdYiJF JcAptgbrvuRWWhDNY2jiMt KGZmWNztXXFzZHhbUy8csR CyvQtlPcVjSDHvn0rekjXU ATgjUxJrY196FEAqRYhko1 zmg7CiSXMkkAKgr7Q3WAYV qyriuNo9f3gtTtVtOqD4dW OqZOaiC6aifxLrhXEuB2Nc zAIyeVj4uShhL90cs6D1Gu jsX5ynBCYbJUXxH0XsTR8i OVWyVui1KFF8PDP4MJItGO SiG5XkGU4pBCTexXUnCUk8 u3prdVphITCgUDP5o7fhUM arnbG3SD4hyq0lbBc1t8gt czEgRGVmYXVsdCBQYXJhZ3 FrdHuuHn4bgNo3oGdoZaxw RBZ7Fju0MO9ggj91rht6oG cjSCZckmtxTsL6PNqkIKMn rjofPEb4RJlwXXBkpZT0RR TkpIOdQ0XdZUInYN7eqtl8 SMR6LCdvEDZjPiU0VZWhuY OgPGQoiOnhGPgaz175NZX8 KiPtTR9cA1Jau2M2vV4cnY OpXXVeoUSaIkYeTOJznv8i vXQwAAkkc0KyQLX7bqD0dZ YvkVYlGYYaIO99Htbte4Rx DiiiFIW4KDXdcaRnn6Zia7 gtMhTnhlLyU3mfH1BzWWRz CKAzDKBjOqZsmmMwz5Ayz2 GgkMNqsEu7a8noAXJkQBPe nCbgh4fhEKF2IWDwM7U8aB Anb7wrLCuzVDDeiGQ2uwG7 PETaoFXfW0MdlF2fWNBzGE 9wfuq3x7iyRIT5DDmwJWJp ViS2tiP3PNPazFEwTIIelA xgANxtj261APQ4AwTcPQMw g0ZtK5PqgZqzU89lsUrqJ3 4fFSNhpRiccE3thBcxgU0q ZjBcZnMyNFxxbFxwbGFpbl xmMVxmczIwXGxhbmcxMDMz WBkbD5grMrDnQLWqiKsbXX fng7IzZCRwDNTuBppdvbSx XHBhciBJIGhhdmUgcGVyc2 9uYWxseSByZXZpZXdlZCBh bNzcg2KwO1lsLK0bT9OqsH XiedHdisWxJZbrOPNpg8w7 zXIwwLbrq7CftOXdXV59wl IyQZMdMIG4VHHkv5oaSH01 mfrjSqNmjB87kpDiptYwPP Izn5odR0afoVBfw6Suj8Co glWjMUaui7SuJH0gaOTetm ztiWR4SKLnhUZrdgItwvT5 sRuuZPEgwP2vpL8ptMsckC 6vNnGhPkUpQHwfLS6aBMIu C7ltpKWrWOBoPSGeE3viQf DnvE5iaXocGfgvjaK2RJLm cn19 Clinical Information (test code = [id number]) Shivani Schuler is a 47 year old female with IDA1. Gastric polyp x 6 r/o adenoma2.Duodenal Bx, r/o Celiac disease 3. Gastric Bx r/o HPylori Gross Description (test code = [id number]) i8jegKAuTTTsyGVGIKP6NE UnFQ7nbSgmjUh3hLwbCEIy jqS1rFXsSZxml2sbLCV6l6 kyfnUTUrafTNRkXT7dMQae NTIcIP9sAcFmAXGfIcTfCD BhcGVydzEyMjQwXHBhcGVy kBS8AUHlZW2wcygiARfuTV kpHVZoptW3OEVyuHSzG4Az EROePN0zbcgrSOZ1TUNRLu vuLv9xgVXumIvxVnBlBvQp YXJzZXQwXGZuaWwgQXJpYW v6vY9SMuklBJY3TBEKLmnp SjesvNwib8KsyGKrEMSlXY xcaWQgNTEwMDAgXFxkYiBP IdMkAfN5Qrh2EYB8LbE9EJ y9EIUWJOTiBgmxYXU5VrZ6 KCb7KXFvUP8rPEnkbUWtYA cnYamkSXfxB479OZmfAAKe Q4UxX2VgZJfrAwAbJVdgTA HvDTFyHDyzYFQgD6FCWSPa RMQ4UnYkGFLhIHw8RUfcT2 HTKZMoCKUiFoW9RBZaRuJ7 IWn9ZQXTGb7zYFhfZvMhST a7GFK9CTa5JkIoBVEnWoPe MIQcIQWzGMbseJQnID4dsU ffGJFhES9RTSXzNKqeBWVb OiTzP7COH1cVRG9lHXtfqA JjaFxmczIyXHBhciANClxw WHGwXA4HDASqLKypJBe1hb QjZZKsJjMgGXMeH17tt8WD h7DxHL3PHGn4tvBdjxmxwX 2hTEQqmpNvFCcKfWKiyO2n mvMCDMcaLNMgX6GfyaHpUJ ipFVFrqh3gwVrwEQeuUtGx bGVkIHdpdGggdGhlIHBhdG rcznMyE3S1iyCpWZ9lUSAD DNLldH2wIWYwRIFij1FcjM KdePqdK1WjnYXgHnLji3h4 qQY4GACkloAhLSYanIJhXP Jlbs8yCFtzOlNjA4E4ZGDf WGBfo52dwAQ5evUjLoJinI j4iESbVVW4JM2poExgxaCw d3u7zM0sMGOvj9R7NYNzx7 A1HMTuphNjdNYwnPWnZSEi AQ4cshElTE44TKIzKBfaSR zpZZO4TCT3PLZwnYAwb1yy ycpaZi1aRNisUL0oFDtfEE 90NEAfFAxqCKCiF4IhJ6B8 QKrcEXNrBFFwhFXrfQ9psx LygcDzcKw7GGAiFDV8dIQs cMmqTTIzKgxbuFV2CRDjIv WabcBbi5TjuCh2dQDfWIqt DAXyhH9spX7lEKOnKLXuxm WUZbioEYCaKWxdh9MeUPgn cGljWHNhMzAgDQpcZXBpY0 1mi1SPr5Dgr5uyiQtgk9Vb gQGkNM2aqSSeYE2Tk6doID LwxYSwRRB7KFfac2mhRGts EGA1UKOkYlDhEZHyGT4VOq DoEExaVPl5JLapCJw3QJs9 MT0RPzCfIXWqSfw6QvN7Eh LqXGu5NOhmOA4YXUQ1TXNs YRVoHLekOFK9TUHiNMo3OT IgXFxzcyAzIFxcZmwgXFxu W38odTXdLOuqLdOoIRcnlO eeGVMdNFJ2FC1FDQLzNqPo A0ONK4qFMT4sSdpimcTsZY CtztADWcdeQABaWF7GNGFk UDxoDLw5otJkXXIyVwZoER MmD43cb7OKs1NrPL0EOVp9 xwKprveuzS1kYDYwscVig1 IzMFxlcGljWHNiMzAgDQpT aWQbfP5aewVHHUloYXXrZ0 DmovLnQXwbDQTgpt6cbJzn IGxhYmVsbGVkIHdpdGggdG lzCZKotPdisqYrF7C6sxBv CN7qDNYRJFAvgA5sYPTaTQ OcCRRiZEOtnL3sYVK8t9Rc abAuOUXNYPYmmLsiHD29aI BjZWxpYWMgZGlzZWFzZSBh zwVqtlGdt90pnlJso0JfUC 2hzUplIZwINDjbMxAsCF3p VMRkpeNlq9LpBY4eRVRwcC QkBPBemecyqHRjXZn4fQJc ZNVoSvFmhRted2FfEXDuLR qkTR29irVsCN8nBAwiKI7s YZpiMZ9bEBUkBCAuHVXbBl AtvWApAzDwkGGtJbLuI10b NlENuVZdv3HvK0puAS6esN VoHrmaeAVrVJCfsWxrl2Wp hFOaKOUpp1GujBYsROanGN 9sKME2Jp0iwGHcMLAholP2 c3IvFWceFIFwDjxwDGApMR lcy3ZeWMBbfIUCz3UmHY1L XHBhciANClxzYTMwXGVwaW RBz8QqMSFCUvgfkZmvEqVj sNJtVnC8RSYkmIOxHEL0LQ 2edYuoGLGgCMl3WJdsXQMy I4IqV2TxALzlYqMxVPfhYZ DySGNnFHedEOCtU2PGUJEn SLI5CoBgEVDiDEw4TVbfC4 VIYBGoLHEtAkE8SUY7AsV7 GVu9VIQUOp2fLAvwDxWhLL FdOgU1SGg3WtLyUUJxElEi AIEvDKDkYSkkaBTsPM4fwI hiTGPoHAKvPWH3UPDjuFJG l1IzBNHaEXncLtNnAVZOMH LXMZ9LVyTZWSEaKpGrxSAk TR8HELQrtpLfTUmpbVpinH 6soZZpQ4abVrTuPwdlbZqk TmVzdERvYzEgDQpcbHRycG FyXGxpbjBccmluMFxzYjMw TKWaxTJSt9PoQENMAhXnMO NpbWVuIEMgaXMgcmVjZWl2 PDBlaJ2sEz0flCOhhT6egA AaQBjuPZSjg9n9rKR4pRVo cPJ8hRVgpFuaMrSoLR8ibL HpLNMJDH76cSLwteXgBCJx qJ6qAUJlIGGwUBG0tjrvAE YTNSB4qHZtr2H7ORnwFIH0 tV4aqBhtUdBzP0S7YXOrGI Scp35tnEF4zpBoGcEuQDLt uz0kmP5hHIhijmBwuFveum Rnp3R6LRHno3X4ZBQcyeFe yMHhkGPsCHGpOtR8BCUlAe H3USVhMUScyJKrSNEsKC2a VGhlIHNwZWNpbWVuIGlzIG LwhGFpvwHsCAKjjg50O8re NJQroD5nm8xmFjPlELIlVR IrkXVhuZH6CQMgzT3gdQ92 cyEpdlLWSJ7bhWMaLH8SUH NiMFxlcGljWHNiMCANClxw MZQxDCuze5UeDIaegHhaNU OoNwDyFUjMtDovEEVCH7my aLGjSBjxYUSOQRxVX7TTIE 5VJIOtsHNJRSG9DT7kRWmt HGTfY2StP6PwroJ4w4otcU dqq9AyzXCxTX1smOFwXH5L XHBhcmQgDQp9 Disclaimer (test code = [id number]) x2secENrSOZet2mlMGZgzU FuZzEwMzNcZnRuYmpcdWMx NJzesmRmNWytk6CtC0WhVi AwMFxhbnNpXGRlZmxhbmcx FPBoUXV9loGmWBDjFKoeVI ZkXXqrVk6eeCAmiSnlJnJp NMQyd0kpqdICOIygMdGjI0 82WQDiSYjti0uwl1VzUIYa sALnu6G8CPFVjywjgAz2zG evU04cu6F9EfnfG0jxZXDz HUCaH3ErXW1qPYWxHpk6SO U3YYY7SMPzFIBgV4IsKF0e SFLjmNRiKPo2p0ynrAujPV LnYJU2b9cgTGzpemNjOY9i vo3uvIs3i3pwhpBzVLKeQL OqrYAPEQIeB7WoaZvbWj4d fJd8rUdrRrqyNWP9Sff4YJ 4lsd76xrh3vRluRASlvwfg YcI8RSwqRDEddvndRUj8RV kcAGQjkSS0DGRepHZaW7Xi KIOkUK7wlam9PBY3EDewIV GrDsL6QOZilLMaNXNucLyz MCfxq074CGT6HsYwFJ9xH2 Gxr1E8sW5nbMMlZGYhwXUg JhPtWIRzjv3yqQXbBFrci2 JbRND9tlP9pEEnsLHvDWHq NK56Hegud0FzXufnm8ZuQ2 0bcRR8TStay0ohBV8cVsO4 djQrZTcid9mwnZ9lYdW9XT sxQV1vGR5yXUBtfJ8mosjo XHBnYnJkcmhlYWRccGdicm VvSy4ljTjtDQP3VMcbP6if gM8fPgQ3NWfcF8lkpV6sKV x3OCybrAL8JHMpsL1yEH1l pfwny1czRRssYFxcTCXkik L1pnQ6GLJwgYUcQ0OfxL7a BRRvPS3wsublk0suKHY1NA opYEQtQIZ2BcLtYHJqj5Ay lbw1ApKgi0XmdIIaGTrlT3 2ee571LAAcbrGcZ3bjoPYc npskaKEqluvtGLtcffQ7BA NpfjXsa8QdJXFmAEM5BXvu MMbczILsVDUywAvok3ceV2 RscGFyXHBsYWluXGYxXGZz MjBcbGFuZzEwMzNcaGljaF ejDHovOrWiSPCjPXksI5xd PpHnS8GdSBQeRbCbbZPzL5 ggVGhpcyByZXBvcnQgbWF5 KTcoR5e7PYAtroWasWh1mn YgVeIvMDCfSCR1PImupVGa CACua4UnyjolpYEeNd3dwX EqAGQjaX7nJIExXEHfFOmx GH8umSk3FTNZmZZyxKZwLe UAMEUhGZ92daNcWKWUhtbh b9P7IGadLBCkj7WvcHKuH8 psq3DhJAFsf58ySD9sz3N3 g4bePQC4XT6vr6PcSZTgcF LlfDGaVXNgj1Htkocep2Ig AAAmfsPpt8RzVPSibeDwhG WaYKCymcXcef0pgpWyDTZf KWTnT2WbfkiuuJwxygQuXW Llux1amxIoQSN8HVJHCRUw XOPao4IkaY9ddYJQEKK7jL Tufs6jklLHiQUzZWWcbv48 JVWgUQ2dV7pcNDJoLTQonq IhmSTip8WoUTSbyCI5gFDl EU1HAvEKy77hLBQfAUMGqf CrDCYvoVljwTD5ekX5sB7e IChGREEpLlx+IFRoZSBGRE UcNV5wjjMnc6BlviCsvRfv JMBxxREqa2IvrYWui1YzwA vvr2FqhSWuoUUrHB6qWGUr clxwYXIgVVRNQiBMYWJvcm I0v5HzJYJeSXEoXUN0xEeo gfb8UOFidI2vEXPmZ1kbbo iyMFdkEUQza7YbqP5poDYY fXUnn1VuyUUshIGMvMNmJK 7nseMpXLmYNZnJSDU0jvTi SNEto7RbBZdlJ3xzB38ugN aorJs1gWZ0NBU1fV5sWpd+ IFxwYXJccGFyIEFwcHJvcH WtLUKeoLawceGjB5LvsjUp xT9yvAYbhyGmTN9wWR2oD6 Z3rLRvRQKkxtZah1twUWnk dmUgYmVlbiByZXZpZXdlZC Qno1UmHAbgNZV3ZXkvqhCy bmNsdWRpbmcgSCZFLCBTcG ElgTVmOZP6KQyysyGeyuPl FS0cxQ0frQfbkV9zyNBsnG I7rdxwJLGuMPJwgUfaZWGq LD6uqQdpaP2dUdUnKgPhHO bfUF9gWZYnU9pvoPGiVDZz UOFuK4nyIrVozD1gaIybCT xjZjJcZnMyMFxwYXJccGFy XHBsYWluXGYxXGZzMjBcbG FuZzEwMzNcaGljaFxmMVxk NqTbDSUgPCbdK6uxKlGuG6 HbZXInVzHfqCXrS8jcDFfe BXM1KBSyZD1koLVpYP19mN Adq6qdNMlolCezpv9oA51t nTJiRFnexPesGYXfy12gt9 OmWVTmxySqfh1dVNAlhgQ1 gE6wQJFnrBttQCOqtRFtKJ Nxu2FyJBdidXPtczEcVRwp BURrQKNcdUCrvyL7seOnvw OxasQzDKPueQijNEEbj8Rm WQUdSSkzh6Iqcy5hyDYtUG QptqQIwLagpDIzlG4kZ8Yx WVNtHKEgvr4aDHNgdY9iVD bhu7HqwwxlOQZhPIWmQYFr ayIljd3oIXGasONNCD7QZR wxyLMgh0GcrlWfX0tODML6 NUQwNjYwMjgxKSBleGNlcH AaAFMhhm76UQRuzA6jpNtv MGHlwW2woC5tyTwprY2cEt CiTjVvLVbrVG5cZPHjP6xi eSTcYSQsPVOaV8eoEiDycP 9jaFxmMVxjZjJcZnMyMFxw YXJ9fQ== Embedded Images (test code = [id number]) [facility] [id number] 19:23:05* Test Item Value Reference Range Interpretation Comme nts Case Report (test code = [id number]) Surgical Pathology ?Case: [id number] ? Authorizing Provider: ?Dominic Keita MD ? [...] HPylori ? Final Diagnosis (test code = [id number]) h5ijkCAxMIHej7hhHZMctG FuZzEwMzNcZnRuYmpcdWMx FJdhrsKqUDmlbMakHYV7VI XoQG2ugKlzkDv3zSmpDHZj qnY3yHHpNJrjl7blJIT0d7 bchvnkMUWcQXmcTt0cwHBd dAcnXyLjFJUlPDs2wQ43NN EjzL3jqKPrFKs4GRPnhFGj cnDxVnQjBJEldNDufVP3FJ ArJQ4zkmadGKkcRYlqTALc flZ7SYAkrHFaX9SyJHSqVR 8uahssZFX7EVmuPINcYDN0 XiJjJZTmo6Bgtbn3OdOqdC FyZFxwbGFpblxmczIwXHBh zlKFUrJNCG0QCPQZJANRS6 xRNUSJGR3WIYGFRrcgiLGp UZRpNWJqZYFRUS1YLVIxK9 gWSuKsRB3ARGKkNSIstXEk DSRknzOXQuNLMG1JLP5QTH wgQklPUFNZOlxwYXIgICAg POEcUWxUE3HEKKRdNLCDG4 UDXIsTLOsrWw8kGESFTM0V E4pTQ5VXCRHYUH7ZKDdaVV JyMWOdORElIC2CMCxgLFEN VR1EBKHANXJXXYsQEGICRM XNQKdLXVJEJ1OOSPbWWKMq bbsxNTPkOl4wQ7LLNBKQKC wgQklPUFNZOlxwYXIgICAg LTVjMCCMT2QUZtXMYB8BJ4 4AYAOAYIGNSO7UFPJIEGuA HJ4AVXYLOQJCRTZSV6LhtH FyICAgICAgLSBOTyBFVklE KM7BDTXJHlBKTOqFKBBlCV lTRUFTRVxwYXIgICAgICAt AV6VCXgeNJVZKN4CHELYRa dBTklTTVMgSURFTlRJRklF ULKXNIEHKA9KTs2BMSFFGe xwYXJccGFyfXtccnRmMVxz w3CtD1VeTaSwZSjbelWiBH MzMartftxhRBWoNAZ3ctBh DSLdTTliZUEwXJprHv3xfB VvePkpPwYdLTNrc0pgdoEV ESqsQrNgU838GFAuYRqxu4 eue9SzVSZcrPTpu6C1UKBG kcbbzPp6l3ocRfAlAyR1vI YzDNylH8leriZauAJaE9Kq gKEtaIc1pPntT63rb7I4Sk poM3giBIWvNFLmH1AnHA2g SHEtHfp5XXN2JBI5SZXhOC GeI7NlHY4yXMQdkUTaZYb9 q9lzyRrcVXRvAKL2a0hvCL mnziD0HD8xni3woWm9h3ia czEgRGVmYXVsdCBQYXJhZ3 NwaTghTu7wlKj9iHydEzsk YII3Okx7WL5efk57drz0aP fqLETegjwfQyG6LZudOONr dvgyEVo3VHkcFMUzqHM2EK KciAMaL2KsKJBqBO3dvws7 SFN5BBraEVYzOvN4GUAzvQ QyUJJshIxeHRjhd482ITZ0 UoThUI4rO4Hfn3K3mG4tyU GqEWOfsPWhUqImZQSyzx2y nYCtPBkkh0VfINM8kjP3tH WmaXGiKLJiNE74Togxf1Br IidrCLA5GJMsctLys8Mpn4 dkZdCvhxMrC0mwS0ZhQCUl TDLfBIAeDdAkfcUft1Dnx7 SnuILtrPm3g5xhRIYxFDYr xIoyq5elBKO1YGEuB2L1bY Vob0unMJqqTPVvtYX4vaB2 RWQgfZKlV8PljR7kXJQsUM 3mjev1f8ykAGP8NTuvWJBl KyA2asY6KSDumOUqHASfaE ajXSoqj943CXF2XqRvQRYm t2ElF9BskHusY58gaHgnO4 1tDWUadRyehW2xgLtnpS1o ZjBcZnMyNFxxbFxwbGFpbl xmMVxmczIwXGxhbmcxMDMz QTebE9zzOkGrGGPbnYvdJJ cyq4PvLHJxEFSoPjowihXt XHBhciBJIGhhdmUgcGVyc2 9uYWxseSByZXZpZXdlZCBh kOpez1IuY5dzGD6sC7EgoO EdiuRwklHnJBxzNDDsm0r4 aHJgiYvrx9YxfCMxVW90cu DdKCUtHSX7LKBgf5sgQY85 jdamUbPmpS58rtXxkkTbNG Qut6vfP6vzgLBqb7Ioi1Zt pjElPOjiw3UyPJ7kvSFcsy iknWG6WPIurDZgomSxvrO4 rYntLEWezI4peU3dtBjndU 1fOsMeRqJtKByaGL7mZNZj D3swkUFqSJWuDKInQ0oxHp HeoI2kuNqjMbeiqcC1WECp cn19 Clinical Information (test code = [id number]) Shivani Schuler is a 47 year old female with IDA1. Gastric polyp x 6 r/o adenoma2.Duodenal Bx, r/o Celiac disease 3. Gastric Bx r/o HPylori Gross Description (test code = [id number]) j8vwcBKeBHAarIXCLHA6FN SpWI9ujJduwKb5pJhyOJYl guP4aWQtHMfja0rkMTD8o2 ogyoRJJwrkIXNsTH3ySAtp ZZTxHF1nMiWzQPFkQdCoXC BhcGVydzEyMjQwXHBhcGVy iKS9RIKtTR7qqgfiGTolMU ntVHNpceD5PEYdmFAwI4Rz BSLgNW4zstlvJQF3FKEJHc qqKa9kwAOdcWhaEpUqKxXk YXJzZXQwXGZuaWwgQXJpYW s6uM3SQjjwBUL6ICPIToif MqzifAvqf2ZvhBTnBNEiII xcaWQgNTEwMDAgXFxkYiBP XiFnIxH1Kgt3NWO8EaV3EL u3MHLTCGMxZkenXTP8HuR9 VVl4FBOlDY7mKKlfsDEyAL ouXkrtVEkcO795XSmiGSWl X8JzF7FyZNfwYfLzZFgxOX SoTPSfAPzjBUXhS3YROUAr CLH0OsAoOWByMTu5SUuqS7 BKCLPzWPLmBqZ3KIOoFpK7 FGh3RRTXQg0lFNzfMtSnGY g4FUR3LMm6OoFiPUCpXxRy LFTsSLDoZZogzFAyJS3acT djLAUeTX7VOLApAKjrDYEq TtVhB2DDB1iQQJ3kHKddzG JjaFxmczIyXHBhciANClxw VLTlDK0MYOKbYJdySQx5yf NnJVFiUaIhPKAdC39ff4LW c3DdJI5TLJc2nbAuafdjnZ 6lHWQqatDiRPwSbIAeuW9c zkEBKNoaHFFwF2PhutFdYO koUSWkin6nsOvoNTwaNiJd bGVkIHdpdGggdGhlIHBhdG oeviRtW2Q1voOhHC6hWAEO GSCfkV6dZGScNBZjc4QdyA GquRgrX3BpoMUuOeUak3f1 fOY1CMJkxhOeDBQoqYPuVU Rgka5uQRfyPyMsE8P1ZEJb QSJyv25jdPP2ajHkKvAzhR n4zMAkILP3QE7ncTonpiUy g2w6dY6yYFJwf6Q8TBMuu4 D3TENsonKulUZzrTKiNPMt DX7opvFeEZ89ZGKgGMhkBH ctDGF6HFE2NQMgbBKbh8ej ziaeAb5nCOecUN6rPFqyVA 37MTJdVXpiXPZaI2IjD2E0 IQfbCGWnYHVybATmjE4ppy NoezQcoYi3WVGdWPS4cVVy iXirHTWuByfvdSA5ZBTyAs BsdqNkh3SkgBo4kVQqILbt NRKttF1xeU9zMBEsQSBink RMAtraESYbMWhro5VfZAcf cGljWHNhMzAgDQpcZXBpY0 2mc1WFf2Zhx2tgzXkvy5Wd dFVhSJ4zaMZsER2Oq2jvNX QzgNMjKEO9AKcam4mqNGru MZI6LKNqKcSmQGXuCL6TIy FsMJprTGt0HLglEKi9FWc4 YL0XOlKxZKPjFmy1SiZ5Sw AqDRo4CQnrAM2QHNT8RNGa JNUfJRzaHVD9AEZgZYu9HZ IgXFxzcyAzIFxcZmwgXFxu W75paDNnSRmxGhRqTHqtpT jsXTGuGOS0YO5LBFEdQrNx E1HOM8mNAA4tMvyjduMvRC ZydtZQAyieJXCeMO2XILMa KOvoKFc9dzFvZADlRgJcSL AwK45zm7ROk9JhGB8CXNo6 dmHuxqzvhA0bIWXhcoIqi9 IzMFxlcGljWHNiMzAgDQpT iRSeoG8zjeLJIQjpHYSmQ1 VejzCtMPpiIDOuww1uhKbp IGxhYmVsbGVkIHdpdGggdG vuGKAtrUmjviQqS1T9biDs LW8vKDQIWVSpxZ3gKEPoJF KoDSKyBJEslZ8pYFD5u7Vm mqYeBJGKRVWdsNpiUV03tO BjZWxpYWMgZGlzZWFzZSBh cyNswrKpa70ssaCmf1RwPF 0ojJfzDQhSLNqjXfHgON6y AQGmttWhi0RaDZ8xWBUjxO YnRPSsdyghdWMmVUx1hIIh IYKoGiDotDmuy3WnYZIqMQ ysGH08pwVsAF2cYKxfDR2o SJcdUI4qDFLjMGZcCRSbOc XfyWVbLoYyqIStBgMtT81l EvKTsPXnr9CbZ4osAL6fgO BlAgyumEHtFTUobCifa0Qw dKXmWSBrm7TzsPMiKHqsJA 0oTSO7Dn2fjLHiRRXzzjS7 a7GuXLudMCNjXdugGXMbQQ grg2SpJZErbKUAx6UmYF2Y XHBhciANClxzYTMwXGVwaW ZXx5YyZBAZDwsjxDquNrNl bXLiAqJ3AKJwyHShRGU1ST 9mvXqzLMZvXFl0NCzuCJKt X7WaZ0UwWZqgSbBnEOtdAE KpUNZpQLffBCVjC9VFVHJx JWS6PlGuTLQoFTw9UIhbR8 FWRCDcSPQpMiL4ZGN5JfY1 VVv4RMIADn3bEMbjUrHgAD DpUxD2TDd3CiUpJJBtReJu FWPgFOJyNQrncQDjTQ3hjG wwECMgEGUrLEF8YOXpaPYU u3NnQPVuWUuwUvYeZLLPGL VPIC4NVrSBTLFlHaZktVGr RA6AGSPxdgEvJXpxgIlrsY 5ldWScH9gsNdBjKgknwVrb TmVzdERvYzEgDQpcbHRycG FyXGxpbjBccmluMFxzYjMw XYMjnXDFn4AqMGQIQnUuVM NpbWVuIEMgaXMgcmVjZWl2 UQGtaQ8cIa5spMRiqM7tvF UaVSqgUOCib0n4mNQ7eNYr kZI0lJJcaScxPdSvEL9ppE PeNZEONJ21vEHbxtSpVOJn aZ6lLZHeHQMaBHG0brszJP IROPL9pLCxe6T5PRhsPYN9 vT3mzYnaQePsP4X6HCSoUS Fze35ivBL4rrSlYoLnHINt ut6rqZ9yAXxdjjWxyDyzty Vgk6J5UHCbr8U7JLPgjyGm jAVhaWLbVABtKuW2EOPiNt U4KGOcQALwlRYbCUHsWD4k VGhlIHNwZWNpbWVuIGlzIG ScpCHhoqWdKEHlko98M5xc MENiuG5cv6kcYqVnJQDaKV YdbQBuiYI6PKEdoN3csO40 feZldrOTAF6mgNTlAQ1FUP NiMFxlcGljWHNiMCANClxw AIQfKQtqf0CqSRdwrLagJF HtLyZiATrCvDatPHLFO1rr wKQjQOgbYXFJKQoES5IQUE 3ROBJbyKRCQBR6QD9sHPta IMJlL8ClN2AbraY0z2yusZ noh3BzuLYjTD4ovWMiCY9W XHBhcmQgDQp9 Disclaimer (test code = [id number]) m7csjIAsXXExm6xaUVOblI FuZzEwMzNcZnRuYmpcdWMx CBpdffIdGGkgw8YsK0McJv AwMFxhbnNpXGRlZmxhbmcx HFKgCRM9lyPxYRZyDBqzSL AtYLgnXg7aoGDbhSqgCwLt SKFcm1vurbYFTAcwNtPvZ7 49ETHyZJvus6vyn4WrINKp jXCpw6F1QWSBvrwbcPy9pP oaL32fa7F9XnqlH1syMJDc RLWbY0YhAX4nWLMzKzl9CY N3NDI2HIIjHTOuU4FdCV2a EGKfkFWmNQr5o5wujJvuZZ XpPWI8h4trTDptaiYmUB4e tk5soHs9w5sfqxDwDGEkWG HcjAIDJKTtN1OpwTjdSg2z aNy2dHxkUxadGXN3Xny1OK 7cbj72gjq4eCffIDGgxxza EwS2YPqaJSVnjqghIBx0KC wlIGWewWN8BIZczHTvP1My WXYuEX0igqe0EBQ3VQodOK NsXpB2NGOojHGaNLTjuRth GPhhm053ZKL1SfTzQS4gR1 Agg6O3fF6zyWSuSODquVWq WlUjOULeax5pnTHlFLari8 AaXGH8xbA4vIRcaYLcGUKm BZ63Bvwwf2SzUwmqk9HhT0 5akHQ9JLbxu5ehJM2wQiW1 neZrLUqjs6evcT1qVnS4CX baFJ9iEE7eDZWeaF4zlfhj XHBnYnJkcmhlYWRccGdicm KhPa3fuOvrCOP5HDtcO4fr uC6tWcP3CCisR2qwzE8eTT p2NGjpsLP7SASwmZ4kXC3a wofoz1quPXduXFvbREHyti W3jcQ9KOTngLVhZ0UqkT0b VQOuEX5wdixyp5kaATH5NA qrEPYwKIU9TdSlBVXnh8Pg vzv8ZhEav9OmsVQxYJwmC2 9ed816NTAootFqL0fxaQDd jwpuuHJndbtpSMoldzX7NX AnuwMtq3KmLFYdAKL9KKgk JBmaaRPcAEWncQvfz9uaG7 RscGFyXHBsYWluXGYxXGZz MjBcbGFuZzEwMzNcaGljaF tjXOwlYsUfOKSmELswR8tc KoCyH5WrLPSaRzOqeVWdK0 ggVGhpcyByZXBvcnQgbWF5 ACxnC2o7KCOaqaKndPn5ps KfHoDtFLJmQFI1GTameLCo JJRdb0BpnwaezMQmGz3trZ YrPMVjkD1zDGYsBMFjDGmq RA2glEu6OJMTbLAhaRXxIt QMYFBuYL79gwDpGDSOeqhi c0T9RHzzEBBtt6NfmIQsQ7 dwq4UeXZMqa15uDK8hx6B7 f4vkUVA9WG7bf8ElIOPaqC YdzJCbOFXfk0Hzlinjo5Hl MRDwmrMbw3VkIMHqiyMovP MmLUVsxdOdvl7yvgJyEWGy ATInT7ZwdjwlgXgkwlAaFR Yysl1tuiIqEUT6KQEORFCj ACUnf4DdvG7qvDGQGJW4tC Fcwu7rznHUoKXbHEUqaf86 TNBxXP7fN3tbBYYzXHMsrt WjaZTti3XfKPDquHT6uKHr ZM9GMlDEo30eCZPgLUDYge BnGCYrpPlhvXL4enB6rM9t IChGREEpLlx+IFRoZSBGRE IbFL9gzrJfu8TjkyNhdFhc TMQmpINan1BauNNum4GxeW cou8SnsMYlmKBgLR2tSQYp clxwYXIgVVRNQiBMYWJvcm W5e1SpYIPjHVVdXJF9bEpz xyu9CPMxiB2aASXiV7psuf haFTzdTVWbw7GhhW4yxUIZ qEJrt8BijWOeiKMGaBWhHC 2fekWtMHeHAVdZMPW0ahAv ZFBum6ZgNPpxB4riE85ggC uesYt1vGT5BFQ0cL9xGzu+ IFxwYXJccGFyIEFwcHJvcH ZmGWNadMhwsqWlC7CvwzTd vB4acKDunpAqFJ9uFB6jC3 L9oSKhQHUeniZri2urCMol dmUgYmVlbiByZXZpZXdlZC Tts5GgLNqfFEE7BVulrcUl bmNsdWRpbmcgSCZFLCBTcG HjzLQoYOK9ZWhbdgBufzJw JD2mzW6lyJecnA7txFElrE D2dktbPCWvBPJnlBxdMQNs ID8siUkdmX7rCsFrWeZzCC arQK6pBITmK9fobHXuSNXt KKRaZ9sbJgRlcF3lrCyjGC xjZjJcZnMyMFxwYXJccGFy XHBsYWluXGYxXGZzMjBcbG FuZzEwMzNcaGljaFxmMVxk GeMjFSDwKPwbK6heHwLlQ4 VdQKAkUmYxqBNoF0cbPHka INI8YGOnUW1pxGGgFH92vJ Eno4fvEEqepYhyft6zA76r kDAnYOgqbBrvTMOtm30cu8 PnAIAaoxOzkp2cIRTsyeO3 fR7kWKOahCtlRZDhjVWnMS Nke8IpIRjqcQNcxzKbZEzr SAUgBOWzrCQfubG3teBdyr JghbVdVPHlkJugEZWjb8Dm RQPzYWxih7Rgyu5trCKvSA VorkXPhYwonTItaQ8pG7Iu OZRaWJQwrf9bZFHkrA3vLN bwi9MhtzjuKCDoSNYjWGTb gkKofo4gPKOhuCEZCK1NNI vrrSUlm5ZbppUkZ3jEYBZ3 NUQwNjYwMjgxKSBleGNlcH BjHLDvfi49GBRgcG6omPvh QKBubY3lsC8kfKslmK8dMg GqLiMuHXnqIU8nBCWlM8bg cJPzLCYmKPMaH0euBtCvvP 9jaFxmMVxjZjJcZnMyMFxw YXJ9fQ== Embedded Images (test code = [id number]) [facility] [id number] 19:23:05* Test Item Value Reference Range Interpretation Comme nts Case Report (test code = [id number]) Surgical Pathology ?Case: [id number] ? Authorizing Provider: ?Dominic Keita MD ? [...] HPylori ? Final Diagnosis (test code = [id number]) o6kyfZXbCAUyv5hvHUAbrT FuZzEwMzNcZnRuYmpcdWMx IDxflfHaCJucgPwmTJD4PC DrYX6yzDhdjMn4fYmnILIy cbR4lIJqZKned6qqQKD5j5 agzjegUPSmDQamZe7htDGs iYatDjVzZWZmYGq3uS36XS YbbV8nxCAsNQq9CHGzfCHm izXvIhGyJZQjrINvoWJ2RS UrXN9inohrETrnCBfeWJUp sbE0KPVrtFEvS8JpMANnPM 3lwzsxPMK3UPlnEFYxMDL9 IaRvOOCji1Htvmw1XaXsdL FyZFxwbGFpblxmczIwXHBh obGQSmUOHY7JLVISTTAHU4 eMKPBXHE4PSUGIDhglnDLj QETaXGGvSDTYSJ0UGFFjV1 oWSeYiJH7ZYRSkLNIykEJi RZDgkySPZyADTH6MKZ8NGI wgQklPUFNZOlxwYXIgICAg YOMgPZhHV8WNGTQkZMQRH4 ZMGUhJSBopMg3vBLJIFA8G V5hNY1QKAQYNNY3MNXjmQY KxXULnJDBwVN9BDGovXXXK PY0QXVPSISFIMApLOFNWIC NLHTgXJHMLP0KUUJpFZXWm hsbmCLVaRc5hZ1SDWVDKLE wgQklPUFNZOlxwYXIgICAg TXXoLFTKM2WSCfZTQL7RD9 6NPKUAHRKERS3TCLCYALwI AU2VYXYKISGSCFSIT1PhqQ FyICAgICAgLSBOTyBFVklE KH5UMJKQVdNQRFiHHVJqPJ lTRUFTRVxwYXIgICAgICAt RK8XBUtaLYFCSZ6CTKBKQn dBTklTTVMgSURFTlRJRklF QMTWRZRIWN3NRt4KHEUSDs xwYXJccGFyfXtccnRmMVxz e7KeR2GzAxKfFKevkkSjSK KrGdgojxppDJIqWGK8vsUq RCAmSAeqJOLtFUnxVc7liP JnxKcvDwWaGMKup1yooyDO KSuiSwNgK301NMSyPOnpi1 uil0SwBVPcfVSfe1H2ZTRT aaqafNx6n2nkFrDxHtR3uY ZcTAuaE4qcvtCtjZQiG9Hx rZQdvZg5fNqlI32yb6Z3Oz zoQ2tlOFSxIZXhQ1JyGF7p ORBgJeb8SLC9ENB4SDSyWQ AvN3VbCE7bWRClrMMbRWk1 y8jmvUaoGYHmXTE0d4xgWJ gzjmI3AO4uck0tcAn5n8mh czEgRGVmYXVsdCBQYXJhZ3 SpvDbhYj0jeKv3tMbgNsrm CIV7Kbs5PX4gpf22lni9gZ vkDYAbrvbvKfU8MWbmZRXb csgwZFx7KKbaRYVznIP3JS AsdUByZ1RfDBIgBG0gpky5 BVS0BMbhGDPgQpQ1FTSfsG AkNXYcjNkzCTsoh933CUH7 PkIhBS2gK1Vxb7V1mL9xdT WvBONflXYlKhIxOYFapd7n tXOoTXlls4IqAXJ2ylS4cL CrfOKyKACpTG45Oiwly0Th KbqeMQD8GDVvkhDrg5Xtv8 ciEtTygyWiB3ebQ0NjZLIe JQCyOZMpPxVzmlVgs0Hla1 ZayABlqQc0s6vvQDPsPOOf cBxmt1rhBNB6UZPqN5Z2aR Evv3yxWWmePDLmdAU0cfD1 EJXiwJTxK5FguY3pTKEzNA 4goqx1w0zdUZM6JQepGVRg BrE3lgZ4SSFjtJRpSVKwdE grPWqhx943WIN5JjWoCDTi a8RsM4DkhOmvF75arRnaY5 1bJAQlpNneiU6enVjcyV4g ZjBcZnMyNFxxbFxwbGFpbl xmMVxmczIwXGxhbmcxMDMz XMeiE6wuYpHdJBJlzSrrZQ mrn4YaTSJgJZDfTrmwbsQy XHBhciBJIGhhdmUgcGVyc2 9uYWxseSByZXZpZXdlZCBh cLfux6ViQ8wmSX3wN1JliM JanzLdlfIqQMdtVVAoi4t9 yWIzvDezl9KuhQWpGT57ci IcODWnEPZ7ITUvf1haOY16 jnrvCiFdrX54taWswjKqVJ Gtz0osN6ogxQRyl9Zoo0Io ztNfQRegv1DaTS5sxGZcyh fjhPN4HUEihYHbjkCcziB9 dCvgCKXyeD1fxS0deOnbtM 0oLuWvSnFhIZxkDM6fALGm C7gnpRZfBTWoOICfB5lePv JtvR6aaChkEegyccG9EXYw cn19 Clinical Information (test code = [id number]) Shivani Schuler is a 47 year old female with IDA1. Gastric polyp x 6 r/o adenoma2.Duodenal Bx, r/o Celiac disease 3. Gastric Bx r/o HPylori Gross Description (test code = [id number]) z2khrGSzPMZurENDWCR6IE CqSZ6llZiocFx8gOkcHMVj gsE1lAEqRDjuc9rsTKW8f7 tdfpHKUejcCMIbVK9xYMls QKCdUN8zViDmWJYlEhIoNW BhcGVydzEyMjQwXHBhcGVy cEN2OXQqIU6pzxabVEkxDY toLJYxjpL0EMMbnRJfH9Zz LXGqCI9bifxpEHE0IBCSGu quFi3dhRFnhWedXjNeOuRd YXJzZXQwXGZuaWwgQXJpYW t0lS5XIyecNGE6TXTAIrpd AvkgyUexi8DyhMAjBVLjNE xcaWQgNTEwMDAgXFxkYiBP QgMrAvD2Zsg5UDB0SaD0OE q3AEAHRXPwUborQAU6DlS3 VIm6SZWaXC8aZNcwzLCcNO wcItiqZTkpU764YBglLDTk M9ElP0GoMSztYoAxXIywWZ ZwCDNlQBnjASUtI6MJUPQg GYI6WsJzXHQxNJt7ABslB4 EWUOMlINHeKnH4JTFsOeA3 QRi7RBSEYs2fKLlqEtBcVT b3AZA8PWj6CaZhEFClXzBl SEXvMHUsOWrzsVFzZV0yoM pxKEBhAR5XZFCuBUlcAVBn EfXrN7WKW6zFZU6kDErgaA JjaFxmczIyXHBhciANClxw OQKdJV6UOISqKLxsNKl1hu DlWFSpYvXhCSVhV28az8GA s7AsUF4CQMw5euLzqrjtmE 8iDLFxafAmYRaOeTKynP0r ohNMYEheDYViP6VtplHcRX ckLJFbdg8spKiqZWutMvGa bGVkIHdpdGggdGhlIHBhdG jyrtDkR8M4efCiZM6nAJXM VWYquN9vMLHqZRInu5TjlC VtnZmaG0TtdMVxZmBet7i3 tXA7ROFkyrDtQUDsbBMfZT Wxgr7aPIimTuVjK5T7ZQCk MLIcc46quWS3gnYhKtNknO j2rRXbHJB4FZ8reGasrlYs a4t6hB4iHZMps6U9GRJsy5 C9IBPjrwUelTGqmPKtKXEl LH8kgdKjCZ07ZBNvSUpbTN buWFS6CZD0RVDvtBSui2ij pmtjHd3pLQcxST3cOSvfRT 78WQYwMHzsGDQbJ8KnR9K5 IKeeJAAlHSWdfXWsjO3ziy UrpcJeyHi9PNWiNWZ6lKDq eHfdCWAnKznhwYH4HMIfUk SjjiYje7AgrOt6mSZtILqm UODuoT9pdO5oPLSjHENrby YXRmrjWMXeADuod0MtEHqt cGljWHNhMzAgDQpcZXBpY0 1wv8PAd4Nyx6vyyJiup0We oZMaSV3deZSoVS4Kg0dbSA JfsXIiTWS8PNxpc8juQOnj ATM2RPGwKiWgDDEbJN5TZq ZwIEzjIYm7NIbrHCn5RIj0 VY1XOdCmZPZcPye8ZxP2Ir NhQWz1CPycCX9NXOW0BRBu XFUcKTiqFYA5KWXfFZf5MH IgXFxzcyAzIFxcZmwgXFxu A30fzKGgLUwtKdJzEMexqI tmZDBqWUF9LC2XCYCxRkWw E8PNC0kRSM4wOvoukfAlWE SikrMUHkedYLPwPS0VRAPu USkeRQm5qhNaZRGvPoCkVX YbC28hn8BDr0EuHD5EVMa5 nfExkcstlC5kJLCegkAid7 IzMFxlcGljWHNiMzAgDQpT zIJyeG8bouFCIRbuOZDeD6 TfuhLdVLeeBQXofi5ioKjv IGxhYmVsbGVkIHdpdGggdG ebQOPqkJskazOaI8J2wuYa OB8nQFAUYVCunR2qKZAjXO CuMZPhXJGlzL0pPPZ6c7Oh joDiVYPGZDBmoPbnJI28bZ BjZWxpYWMgZGlzZWFzZSBh ihLieaHzu84hdrVsk1XcAE 8ziCaqEYuFBUhdZkOaFD8t HXMiceXng8YpHB0zYOFwzH TrXKGiqblhuCXcPWp5sNRz EEXgPfXvlQrpp7JbUPEtPU xrJB32gmPwWC6mUWxeDZ4k NVcwKO2cUSBsOMXvZQKeOh EwhEMqOrJoqEHzFqAtL30n GdQPaMDhl1PdE2tyOP1btS NrSjumhHXlABWyvKtzw1Rp pHAoEYLjz4GydGXgWIsiDH 9oUOG3Ag1ggCMnOMRkodG1 o9HvOOaqALPjPhorRTCaYY cer1DeWWGhjQQWm0IfRN4J XHBhciANClxzYTMwXGVwaW GDz3LxXJITUkdzrBszIiPk gFEmHbM6UYZgvOXhHWU7ES 9moUccBOEkZEl1NJbaXEWg L9LmJ1KlNTotRmYrYZfrCK ZgOUSoWQavZMSeY9RXURRp PKX9BkUsWXWiBYo4TPkqA1 LSDJYdNPGuOoT5GVH6WlA9 HJd9OPOYRj3bGKenLfAcLS EbVbR5JNf1IdRwOXTbIjMd XXCkRMIoBQzrkRYiXJ8ymY miMOCpSKVdDCN8UKLxvOBR y0SoXRHeKNjyAgZuLELTPZ ODEK2EKyYULHVkJpSsnBGe AM8TBJEphlYyDGtlzFknfZ 9irUDtS4lgHhGdEsrgrCdk TmVzdERvYzEgDQpcbHRycG FyXGxpbjBccmluMFxzYjMw SUTyqHNNg5DeZQIRIsFwFH NpbWVuIEMgaXMgcmVjZWl2 ZUMngZ6yXs6aaWCmfN3rvJ CaLYwiVOKyy0f6eKE6nITz yFZ6nIIhqRjpXhDhWO5buM KvJQVLOO80xDZilbKoBHLf wV6vDLXqMLTeLQK3nytkYY NCQBG9dOEiw5N3OTwcVVQ9 wP6wpGqoCkAaU9N6IWDpSO Vqo97otWC7tnDhKzPdILGn rt4hwA0iGQatnuVmhXzdjl Lgu3C5LWVdd3J1JDMlmfHk aCPdfODmKDVrXrZ1RKUeBq I0XNPzYJTeeGNjGWDfEK4o VGhlIHNwZWNpbWVuIGlzIG JgrRDdgqEgSKPpcc61K7rg XCTuoZ0vr7cyQfVuIKYvKQ CogDMwoOC1UBJtuO2iyR86 pmHbcoAQTR1dmFZfQQ9ELH NiMFxlcGljWHNiMCANClxw CUJwSJnwa4SzDZfxvMtdZB EfLvDnXJvCoTwuNJSCB5qh uXKxRDeoXGNRHFaGI6CNBL 7FDPTtcTEYNUL2JC0uSUru PLZtA4BiI7VvpqH2l9blgD dgu1CknPDlIU0ptJVhZH5O XHBhcmQgDQp9 Disclaimer (test code = [id number]) o5nhrWEiNVSpt1hbGXCwwE FuZzEwMzNcZnRuYmpcdWMx YAuiqvSlUHsbv3SdY9JbOd AwMFxhbnNpXGRlZmxhbmcx BMRvSGD6foSxJQXvZRlbSH CkJTbxJl2clKWbkUfdZxWj EWKbc8tobkPZNBtfKaEnQ7 44GPVuZPqpm6yjy5QiQZWl nNUmc3N8RFPVikddjNu8vU sqK49re4D6WcmeO8sgAEAr DPOoW0OtHX4gIDOgZca0TO T2ELN8CBJhWRMlD4DnRF4x ZXExdPMvZEn7h8nkeDujEP BiDSJ5r5skAKybthOzPC2d gv8uhYk8y8yyooHfTWOuRN CdjJMEKMCwX0PzgHdoSv0i tOs8pFqsQxjfWRJ2Qyt3XD 4xlr51cff1cJtcYSWbszpw ThG5AKmyTJNmbmsvDSu0DX guCBAazQG6AMOabZEtH8Kw IBBcLP7rlos5JBO3XCmpFO BrZlQ3GYCxhOJsQKYpeRqx STxau095RIC1MpAnLL9uB1 Wyw4U5hV5xrATjIOUaiNLu EyDjLRHgdw4cwNIiOJfqq5 EeCPZ3cjT3jGDegDSsBGVs FU02Donvi0KzNvgky5KbI3 0xcEI5XNejz1woOB6tSyY9 zoKtZUaak6kckH8lXkR2YZ dpVE3eYU1vRSEimK3vkgmm XHBnYnJkcmhlYWRccGdicm WqUj1zaDloFBD5XJcdD9zj sV4qJgD8HGsxO7tjgO3zSF n3FTbwlZJ0LDRjsP6tCR7k twlux5ncKQrsTIrnKKUvpg W0ivE0NYYnvZDtH4OdkW6q IYVbNQ8ghwtyz9akBPL8GZ ikJGIlGCE7XsXtRBDpm7Sc rhw6CvZze1JlmBQcVJqvE1 6hf160SQWttmXxH5cieRYu cqwenXJmjdqjGVtgwzW5MY NpyuGiw7DjXUHtNUY4HKzd YTngaBDmPQEfdPalv7vmT0 RscGFyXHBsYWluXGYxXGZz MjBcbGFuZzEwMzNcaGljaF qjHJozPwMyJWDyWTzgO4bp ZhVzT5MtAHQdNsUnuTTuR8 ggVGhpcyByZXBvcnQgbWF5 XWysY2h3SDIwaoWkySh4aa DcNyIjKJVvCGP4BFlbrTEs HDZin6AlyaacqDPyNa9etT MxCBUkdP8kHMKlXFOtIUwv YN6ufXi2UMKCkMMjzQPoIl ZTOMZoSR80twLdDJRFeyjy y6C2QHjqYXMqe0XtuTKcB6 nab9JqUMEls59lSR3et9A5 a3shKTH7XO1ig8ZsDIZpqI GqmKZkCCTsx0Gkmvhdq6Dv VVDasrQzq6AdSRLobrOqaW ZvGKLeyxPfdg0ihrMtMCWa BYHyD0XdjkmekAgxivIwQA Tjjz6zjjSkSWY8YFWYVURx WTFbq5IsiM4iwZGXWKX9sJ Nhvg9fbqSNdIWwBKOhkl09 KZPwFU3oW5mdUQVeDZHbjn FtfQLrb4ElMAOkxFP6sZGj MW3HXvENv24cZHYrYVBWya CxRZMupFrctGN5paT0rU0x IChGREEpLlx+IFRoZSBGRE KaUS0juaDnk7PoxcImxKks SZOnqGVhm3HtcIYur2WxwE xgg4EeqGMkzVJtWF6sLAIl clxwYXIgVVRNQiBMYWJvcm Q2s4CtKCKkMCKjJRJ6bAbh gwp6TXGgdI4qIWCoJ3bifu sfOOxqIPBup2MbwD7bgMUJ hAMin4IebNKlpWDSsVHhYJ 9rzxLhDAmNOZcHBTH3qyQv AAPru3NqZBowZ0wvS61bvB gwdQt9jIY7DZT9fD6lYkd+ IFxwYXJccGFyIEFwcHJvcH EvGMXdwQrojkVxC0QsqcPi bR8uwKFzjaZyKS3jYD0pF9 I4oFLpQDLbzlBmu9gzOTur dmUgYmVlbiByZXZpZXdlZC Ncv1VnQXngABC0SBaoffAb bmNsdWRpbmcgSCZFLCBTcG SxtKKfXWX6AVxsrmVcskNz RA2xkC6fkInpuC4cbKQfjT K6nawsFYXoYGTjcSulAQRa UE2tpLiqgU5yVdNxVnNbBA egNY2zDHTgL9febGCxKPMm QHOiU7ckVdEtqM1lfEprOW xjZjJcZnMyMFxwYXJccGFy XHBsYWluXGYxXGZzMjBcbG FuZzEwMzNcaGljaFxmMVxk IgHoVVDiKYtwD5svQnGcS9 SyNQHnKoXbfQMuM1qpGMec CHW5ATLiAU8rwMArGZ04lO Oqj3syCQhtaEptta1rA94f yKDnPMzarMuqVHOrd59tg8 UnXJKcqnEjic6bGJDklzE7 xS1xQEItyQalAOQjxFTjSS Bnd3MiLIazoGBrhuUnFKxi AJLySCUjwFNzsrL6oxNenp OeltAyXTVaxGutMVBih9Yv DSBhUVhhb6Hcai1tgFPaVU BvaiDWrDkifMZygJ5yR6Mj ICKiVBGzws0vJNVaxR1nKS hzs7HytjxpYOOsSCBiKWSk daZxpv4eOPTljLLHTH2AAZ crqGYff3IwyzJpZ4fGLEB7 NUQwNjYwMjgxKSBleGNlcH EdYICsda44XDSxfX6saYig PIZfrU7ttL0jmIkgbX3jTi WsQmTtDExrEG0iGFPzE3fz oIAoJRDqZAOkG1biQiWqdG 9jaFxmMVxjZjJcZnMyMFxw YXJ9fQ== Embedded Images (test code = [id number]) [facility] [id number] 19:23:05* Test Item Value Reference Range Interpretation Comme [facility] Case Report (test code = [id number]) Surgical Pathology ?Case: [id number] ? Authorizing Provider: ?Dominic Keita MD ? [...] HPylori ? Final Diagnosis (test code = [id number]) c7nsiYRpYMLwc8vdNITsfY FuZzEwMzNcZnRuYmpcdWMx QLajqrUmQTlknBapCRW6OD JtYH3veVknoJv6zPazTUCq kwU3eMYtSLrqc3qyWWE8u7 thaztpOOMgQIbrJz0shQIc aDrzNmUbLAQwMWl5zC19BF DjtP0cqZVaYRm2FLRjsIWp qrWtSgLzHUGtoMKzrRQ7SJ DyAL7czzfpAYwmLWogYEGb ccS2NAEvaEGnX8CoENUkQM 9tafrtHUI4RXshERXeUKC9 SwViQEWgv4Doxdm8EtPlvN FyZFxwbGFpblxmczIwXHBh fnUPFuSJMV7IMWYNKKDIJ7 kGNCKBOO3ANKEFLntspVGo VYVqKUEfVQDFRR5HIQWaO8 uLQqXmDS3MJJViBDLvfKBd YUTbcqBUGaUJHO6BRT2MFI wgQklPUFNZOlxwYXIgICAg SRBvURoYJ8GZHCVvGBHDE4 IAZTeIOKjpXf4dADOWNL7C G5xRQ9QWANOURA3DNXhjNZ IaTJLzZWKgAS8XOUybRUIG JF6GGQTXLLJOSYqHGBJGYQ OMNXdODUPGQ0VQEDpLPOAv qtlgXZAuXf8fA8UDPXILFU wgQklPUFNZOlxwYXIgICAg HDUrLPBLE5SLOoNUPK9IQ4 7VAEJJBBGLMZ9YPEIKDUnQ BO7EOATDXBPYSUOSJ3LxdL FyICAgICAgLSBOTyBFVklE UQ7QNAKVZvXWFPaTSYDnIX lTRUFTRVxwYXIgICAgICAt FU5DDPpxZNZHMY3PFTHBTd dBTklTTVMgSURFTlRJRklF MXQBESFVMH2PHm8NXNOKAo xwYXJccGFyfXtccnRmMVxz o7GgM9OtJeEtLJbdlkVwQP PmYjgrwexgDCGgWPD8qjGj GDWbGSahPGPqVZbvAn9dpE AkbVjaEeBfSQAym6jxcyCG MNneDbGpY537WFGrDQhfh4 ezl6AxSNWspWVnz4V6SEWF kjnsgLd8s2ioNrGnErT6nI IcUYlsQ2vzfeYtpQJqB0Ok kSDizFw4lHkrY40qr8J8We qsS1yqHTQkBDNcL3KaAZ2q MFDzRzq7YYH4ZKI0WTTxLX CuU9OwFR8hUDJzrWGjURg7 a7dlpIveWTZeJLY4e6puNL mpftJ3YZ7ihk4sfHf0a8dm czEgRGVmYXVsdCBQYXJhZ3 ZzwHduYv2chBq0kAflCuzv ZDW5Hac4AO5gir71gla2lJ cbPZWdcmqsSiZ5RYptLZHy chsvGKg0IPtgRHPkuUI7AZ DkpEArB5PlKTRmND2yvwk2 VLI8EGjlQHPbQrA5ZIElzY EbLCXfkKruNGuhg067WGH2 PcGaXV9uV4Hok9O7kP0gpV BkXQKxqQEgWqHfGKChlo1j fLZfLPkem9BkFPE9uvI6rC FnpTMgUGWvKI46Zftfc2Cw YwxxVLY2STHnesJrv8Hom0 reKtWtxeKfJ4ixG8FwQYUv KUZsRVBsYtUklpOgz7Jnm3 JyfVZvtYe1f7jcMCEoPBDk xFrhm5vpQSA2LPOjL9D6zT Psk6xiFPzvRLIhvHN1iqW7 QSJyzNPjI7LjzE8xJVYgTJ 5iilq4x7bnYOJ4SIjfKYFm YeY4bcF9DYUbaHRtYOSkfO tnOWwqq630BUP2TuPvIQKc f5XwF1ItiFleR79qfYrbR8 2qXDRniXiemO7zxUkhdP8w ZjBcZnMyNFxxbFxwbGFpbl xmMVxmczIwXGxhbmcxMDMz AZzfR4bsNpVkBVYwuPqgIO agp6LoSAUaYRKeYoxgkyIx XHBhciBJIGhhdmUgcGVyc2 9uYWxseSByZXZpZXdlZCBh mUbbp1RjW6pdOW7iA7CnbU YpthQfueWqKUlhZIMln4y4 iDGtwSrvy6CklSIpVQ37nr EtAHSiKTN9KNCyb2vuQC93 fqmpHpFngE89eqAidnInJP Ryo4dpZ4sabAYgw7Uxm9Al qtHaBQmre5QwAR0klVIfip dysWH3JTEdaPTohvKawsH3 nZmwOLLjhU9wiB3zbNxnrV 4pSyKlFaJnCRazBY9hAHJr O2synKLtBAUwJSEnS1vcCp LpaS8asGzlZfhmayY2RRZi cn19 Clinical Information (test code = [id number]) Shivani Schuler is a 47 year old female with IDA1. Gastric polyp x 6 r/o adenoma2.Duodenal Bx, r/o Celiac disease 3. Gastric Bx r/o HPylori Gross Description (test code = [id number]) r6iqvYEbUEEjhZOGCGD3XY EwKZ9pqHckrEf8fOmjGTMq mrQ1bNGbXQrmi4gzNGS1l8 demsICPgnqRZFmKM9qQEob ZZFyZZ7gIkWdNWJbQxHdAC BhcGVydzEyMjQwXHBhcGVy sKV5JJXhJT6bsurtUUitRT xuZSHqzqV9SWFjrIOfY4Oq PMIaTZ9kreeaOVS6LLBDYh ciOh6okNUbnMusTjVsGcOm YXJzZXQwXGZuaWwgQXJpYW m1nM5HHgxcJUO0IBEMBaxk FyxshPmba8DziQBdUIZeOG xcaWQgNTEwMDAgXFxkYiBP UrSrXxN4Wju9HDU5CxW5QD t3EYKETZYmFwejMQD0GgM3 VLf3IEUxJG0dCAlfjELtVP kuFastNNzeH885OHeoBFIe S0KjP3RmUWkvWjNpIGigPV MnRMPzSRtiPAEjW6KEHCKp QFZ6QkUzNWTmMZa3PIphF0 RDQWPxQMXdInK8ZEAcBcA7 TTi2SEHXRs1aVVujXbIpGD b5SMK4GLw0VqAqZLLoFdZy OKOeUQLgRWlayRVkPX7vbT twEFMrQI1DUIPnOJfnMKVh AeWfD3QZW2kAYE2jRZpysU JjaFxmczIyXHBhciANClxw JNEiCP1RRHOyKJnbOCo0td LlUFCsXxHkJJQrJ78ch2XF z1ZyNK9TNHa5txUtrywuoW 0fWSEpzuSnNBbEyGWfdR7e zlLMBTrmWINuW8LuubCtOS cpHXJcvh8jrJzvXVmjAkUh bGVkIHdpdGggdGhlIHBhdG vmcoFoM3H6ngVoEO5sFZOK OPYdbG8sLQAkTLJut2FzmX OugUdjK0DpkOOgAcIdw7v9 hSZ8FQGmjcFgKPJypMCbLS Brml4cZUinCxWtN3I9HURz KVFtu52uoXP6nkJmPdWniP w7fROgXBM8SV9ncNevxnSt a2v4cR2qBHEfo8B8ENOiu7 O4MEMlhoCagJHhzNCwWENk VC0fbzNlCD44MKAmHWfeIQ zpLCZ6UGO8ECJptKVzh0sh gogeHq9eEUkxQX7cMYqzXO 75AKOcXIadIKWsM2ApS4M8 LJmbEJQzKIHjrZMmnH6ens YtxgIujMn5KCWjPFG6kYWa hLrzIVCgDyzsuOW8UZNdWf QwutEzv3FsjCn5cNPxHRcf HRMzdV9ylB4cUUDpSJDlit WICqyuYKEjNAuso5XuOIkh cGljWHNhMzAgDQpcZXBpY0 8yx6AFc1Yef1vpdNopw3Pr rQAzIZ2xqHMgAY7Ra5owWY HnvWWvRTT3MMecb4vsABlr HTD9JMOcPlVwXOZmMS9TGk SxWOvnWNu6CFxeTLp9ANj8 LM3IYxYuVXBhQfv1WgW6Fa ZqGKm7BLksKC1GLII6CSGq DUZvMMymGGR8CBGmBDx4XQ IgXFxzcyAzIFxcZmwgXFxu R11beWVpYUcaFpRwCWgetE xrRIJtWGP8WD6FKGDdVuUw S5FMT9cIZG5yKotbhcVkOJ WyymGPDnylFZZlKU7PIGQh ADdyEUe8xcYjTVGeQbQaJL GsM79vx4EIj8UwHE5FCQt0 zgOdttijqY6oUJAolyXqm4 IzMFxlcGljWHNiMzAgDQpT kBCxwD7dskVIJOztXHYzW3 UlnxIpKNexMXBybb8faAld IGxhYmVsbGVkIHdpdGggdG yeEESsiLvsxcRkZ8S5arJt RE5bCGXOYKFskP2fPRIvZD PzTOGlEIGvwF8zGKW9v4Xz xtTwAIQIDMUdlUqkZU42eK BjZWxpYWMgZGlzZWFzZSBh rrAjyePje73ohcQop0ImHV 2vxEzxONrUOBcxJvXfZQ8j ILScwdFkx6RbJJ1vWAQzxW BhGMChfxmwqWNqZEt4gJWw RMApQnMsjRcjd3ZeXQTbAN waKZ58iuGjKB7cPEqaIE2f KEjpHQ8eZWUmWJDmRWRzXv NlbHPuJeEzmWTkCfEzT47k IxSHjTNse0TeT2jnWM0eaU NzWjqqrORvEBAgaPhbz8Sa sVJrVOOrx6XztUOkPNedYR 5zKUY3Gr5cfEOdRCZjhqI1 f0QkUXlnTEIbPogoMRZjNG sll1XmDFIhaQIGv0EsUW8I XHBhciANClxzYTMwXGVwaW LPr7KuLJGNSublsOlxRvHz iQQaOjW6WDXgiVDyKYU8VC 4umPfyIQSaWNw5AZovKYQq K2LoD6MxAKjrQrSlJSybQX HaUYNrIMpdNZApG4XLRMJe VIQ7JnDpEXJtUGd4JAngW7 PUFUXbLIBbFxP5SFT4GpJ3 RIx8OOSWCx6iXCutIbGgYL JxQmW9TYt9MrMaEAQhBhUz VUGwDZJeAKieqIDgBZ2xvK flXRFwGBQqHKC5JTLybQSV p4DtCUZxFMxbFuOgSHNFVZ PVUJ7DHzIQSVAuVlTmlUDl YT5QNOInziDyVQlfiRwmvI 9mhOGeI2evZsNrOdkeyWkc TmVzdERvYzEgDQpcbHRycG FyXGxpbjBccmluMFxzYjMw NLUauXEJs9WtJMYUFsWhIZ NpbWVuIEMgaXMgcmVjZWl2 TATmsI5cCg6ciPMsiX5hzP StTBixRWFiw7l5uQL9lLHh aIB4uPLgwYvqNeExNW2zyM StKRVJRR27tKXkyuQbEIQx tK9ySJEyQGCvCCJ7tizlTG ZAFJL4vITxo4Q8YHnnLYZ7 cN0zyQnzYpOxD7H1GZQgYU Psl10caCD9vkGmOeWoQNKz ku0tzP0bILbxpcKfzOkteg Cac7X2UVIrf0K4XUQodaXi aUOvbUTgRJJvStP7QMMwIg S3TDQsZKIksEEoDKJkTH9m VGhlIHNwZWNpbWVuIGlzIG BugWCueoWtFHQhhp00M6fi DQNyjO0cf9slNiJkVAKaQU BcnSLlfMO2TWGesF5vvD56 wdOmbnSTTG7fkOJzNA5HUR NiMFxlcGljWHNiMCANClxw DTYmFKvan3MpAWcwkSxiFU UmLySdUDgFiItaXCMZP5kb lBKeXAddKFYOAFrME4VLRP 4HSWPutENEAGL0LP0dVMky IVItU6TdN6KyzzP8r4ayzY mws5LxnMRjEY9thMFpAI5F XHBhcmQgDQp9 Disclaimer (test code = [id number]) a8fiuLRaOZXmp3euTBBzvH FuZzEwMzNcZnRuYmpcdWMx OTwrerDaBLhrb2TnF8QuSs AwMFxhbnNpXGRlZmxhbmcx SARpMGU6ufRsOXQxZOmvBR IrJDsrQh8zjDUnjAmtPgVa ZXGqy6klhpWVSNzoMkWnZ5 07BAYgHSgmj6wui7ThHYOa cYJth2P3KTRRotfizSf4iG dbF79rj4A5ZsjtK3cnQRZf NNUcF7HrJV7rIZKbVcg8SN Y5LNW7LFVvTAOjE3LqHH4v FWInjZDjITt6j7qoxOygHS OvASI1d6klHVntekIoOT0p wm4qpYs9i2qnwbHrNDYkVG UdfPZBQQEkQ4VeqMicSe5i zBd8lHakFkikJQH9Hzq4HD 2zuf25xba6tHwgOEGqojno ZzX3UXefLPPpasdnEZg7WE wgELBpwDR9NXKpoBOdF4Vq FBMfOI8tnvp6ZRK0OCwhPX VhXoZ1FUNnmVBdCCJrwUfj AKhcc988WBY5NsPjXF9iH5 Nvm6L5mC0fmEEpHPWzrNUr PyLrLUScji1ytNVfXOjkw2 ZkRAW8ttT9aMLzkXDmBEIf RJ83Nfdhy2FmNfxnx9JkE6 4foZD6LZiwb2mzJQ1lByY3 zyEnDWlbo9ylcV4dKlK5BJ okXA1yTI5oDCFqqU7koack XHBnYnJkcmhlYWRccGdicm OvLu3bqAseLOE9UKetL9bw tM6qJxI6DRwlN2qrfQ1eFD w5RKgmwAI5LGZlzX7lEN1p notrt9lwKKdrKZveSFTqgh J9sgN7HBHsdJVuK5PteM3r AMSpKT2bbbmuv1uoFDT2UB jsHTSbQZP9GmEkTMCjz5Ii nsd2PyRfr7OzvIYzZAjwY6 9wl319YAMnuyMeG2bhuLBw hgmplMTcixknYUkxknD9UR CufoJju8DkLHKxEJT8BHhe UHtamDQqEHZhpOvvw1kyV4 RscGFyXHBsYWluXGYxXGZz MjBcbGFuZzEwMzNcaGljaF hoOYxvFoRuZSMuBJjsU2hy WoUaS1WaFHKyApAeaDRaG7 ggVGhpcyByZXBvcnQgbWF5 WCbdX0n9SOKqwgTmpNi4er IdKlCxJAOoFLF6BEogbVIf KKKfi7PlfnjxiNQuOq2nlF ZhGZAjcJ0bBTPqGVPoJXdq BT8ipNa2WBLShZEsfZCmHp JMTQBhII20geOrFZLVwivy g4V1FJtoGOMdh9QiiYFyK4 jof2AvOBPyw00wCQ0cb8O4 l4kpBYK2JF4jf7GlGFGpvQ YokPEiRFSsh7Gbtntbs3Vc VHMrklIfu1ZzRNSsjqYkjH SeJGNhnlPhhu0mjuYtXKEn WZToL3SmaupnjEcjyqXmPA Ugba8zvrCjXGB7QJPNQMJc HQIkq9XymH7ikNZMAGK3oN Cjdq6rbhYReQAiTCCanc86 YDZjYG0gP5kkEPTbLUNnrd UgeYOoq3BcXGYaePY9wKGj SE6VReTMw99kOYMqICFMhv ImHZSgeUlglBD2tvV9yD5t IChGREEpLlx+IFRoZSBGRE AtLW6xjhAhj0GomoKmgGcg TFPlmORjm8RucXQyx9RijJ vjr5XwjWFduROiMO4nLPIj clxwYXIgVVRNQiBMYWJvcm D3x1JrCKXrWDHrXLY7fKnk aor6CZNhhW4ePFBlS0fjpw ynBGaeFPHrz8VzbM6vqIQN kTGha5ObbLIeoIAYcGBvCI 3rkbEjVSuJQHqJMIS2wqXq OHRpa2MiEFvkB7spP99yoA svmXf2xPB5MBS1lC3zRjp+ IFxwYXJccGFyIEFwcHJvcH SiMORjuNcfehIwS4UhpfVa wS1aiORhxnYoUI7qES3hL6 I6dXAxNCHkmqKbf5rbJEnv dmUgYmVlbiByZXZpZXdlZC Zyl5IiJOchTVP2OLnrbpBf bmNsdWRpbmcgSCZFLCBTcG UhaBYeKXA4JMaegxGczcLm YT2ssA5kqKaoxQ2hkCSafV X7bdeqHBHsBFKocJnhSNLi WX0yoAbfoC5wBuTgRbDeOH prLE8rPSRrD5itlMNeCAKs ADLlK1boDoSfmB0glQndFS xjZjJcZnMyMFxwYXJccGFy XHBsYWluXGYxXGZzMjBcbG FuZzEwMzNcaGljaFxmMVxk GfDxNWMyNPomF7fqMqIuG0 GyDPZoFfWptDDrM2ooDFia BIV4OWBuYQ9wnSUgYD51hG Csq5ziSSocfGjzjn6lC62r jLIsIVsifZscKPQim68hu5 LfYZDyguBvsu1lKVHktdT2 oE0pDDLarDatTJAquMKrOC Oby4XmYJhnxDNmboPxSZqy EYRuWINjkDOdzuR4yfUvey QtrsXxMMRjnTpyYWVfs7Vd XNQaHTmxh5Tjxr9hkWYuEP SpwrNUjQgnqYMwpU0gE4Dm JNXiUDHnfo9rQNOscD8oWY txu1RkchhpRLBmSFEiLTUv xbTsxw2rUIUtcWCSGP0DXL dbaOEuj5XhwcUjS7fNGDG0 NUQwNjYwMjgxKSBleGNlcH JrBOLyfe89DSQzbW4wrQta ELNmpH2cvM1ohMhbrI4nXd OnCtAmHWmlNY0tROXcZ1hz hLIsLJTcLIZsT4atTlFceZ 9jaFxmMVxjZjJcZnMyMFxw YXJ9fQ== Embedded Images (test code = [id number]) [facility] [id number] 19:23:05* Test Item Value Reference Range Interpretation Comme nts Case Report (test code = [id number]) Surgical Pathology ?Case: [id number] ? Authorizing Provider: ?Dominic Keita MD ? [...] HPylori ? Final Diagnosis (test code = [id number]) f1jpsQUrOORnc6eoEYOvtO FuZzEwMzNcZnRuYmpcdWMx LIyutpItBTgvyEbxJQI1JE OoKZ4nrYqckIt1iIacBJXl ybR0aFXcKNeaz2joPSQ9o0 pxkpccJFMcYVhaJk6mdOGz dOluMbJwSMHtNFe9sJ05OZ SkgC2pbJAfCPm9WBVokYVf uiGyShAlFBLmyBZkdHY9UA IeTU4hfimpAQeqGMinRFKn wwB6PTLavALoE5PrZPHhHQ 5vabduUKE2DVhuIZRsCVN8 SjNzQPVkz1Gevvz1MlZunN FyZFxwbGFpblxmczIwXHBh hwNDMyABOS7HCAICQGQQS2 jUACNGEV8UGSYUXrqnvPPy RDVkLRLxBBIMOX0DWBFnJ4 rSYdHwHR8EOCPxNMCwdDEn SHBjmkBVOdIWHP0OGV2XSV wgQklPUFNZOlxwYXIgICAg GXOgTTzVY9KMTMOqDXUCA4 LMBWkLEFmnSf8nCRZBNR0N G6qJG2ILZNGIKT8HUCtpPG QxHXLxLTDsHZ6NJEdaQOHC BI6FJTMXDRGQPPeFUHLTNI TNLNqLTZVHS6VAUImCPZGl eifsZJAdMf1xY1FDEKNCHZ wgQklPUFNZOlxwYXIgICAg HXBaBIOXM1WFQwSJYN7AO3 7FKGLBWMDUBU8XGDEGSGtP CS4BCZOVLHENMPPKI3NizL FyICAgICAgLSBOTyBFVklE XG0LSYAWQcRDALqWSSThUP lTRUFTRVxwYXIgICAgICAt EU4RKBwiVJVYKU3CZMSTYg dBTklTTVMgSURFTlRJRklF XZFLZXUIFI3TUq3FNYNQXq xwYXJccGFyfXtccnRmMVxz l0TcV4UwRyKiEWxrxkLgJK BlFvvvuossCYFhMQL0pmPz QCWjOFihIHTlDKpbCd7tuS QzgYafAxSsOLUvq3dhjcUG ZSddQzBlP790ESYpECpfm5 xfp6KiGOChcICsv6N2FAJW wlfppAm4j0krCpIzNzJ1vM FcFIahV3pknaFqdITeL2Gf bFNrdBa0gBxnX33qh0U6Yf lmK7btVAScFJPxB6ApSS5v NLVaUfx4SQU9OVB0NYUrVU OpW1FjQH3vSAYgbDZsDJw9 s9rtnRbwVOZdRPK7w2ekAV tulrW0HH7brd0luNc0s0jz czEgRGVmYXVsdCBQYXJhZ3 RnoHtxWt0pgUe1oFugCbxf LIF9Ahq9LZ0atf24vni2nS juRBNjuadzHqB0ZYouUDMg axfsHHv5STtjIOFxoUM8LD ZlwAJgG3ZzZRMqYW1baae9 NXW4IYcdGPRwScN9JTThjY VjOVTgcLhsPZkav315WXY7 UlYcFF4qL0Wov3X6kL6dhJ UwQPGbqUEhNxUoQMOmff3z qFPwDFusi4CdNAZ1xiH2dQ ZjqVBlEWFlSS96Tceon5Ky OhsaYKN4VNMhirWwy9Vjs7 qkKoMnfvFlW6rtE7GdJKZf FYVbCMGwGsUlpkNyn9Tfz1 QtpKQpzEk6n8rvJXQnYJCo zRmro2gwXEU4VSPhC2H0lT Irp2suLMooKKFuvYY9ixZ1 EPJfoAEmE2UpbQ8tENElGL 3rnok9r3atEXK8UIocEIQl JmT7rkV5TQZzbKJeJRFhmA mlASysp673EVB6KrLxSJXf l0ZpY3SmlIiwB84qnEgxH6 8bXJEwmCfeiN2noJtaaS3s ZjBcZnMyNFxxbFxwbGFpbl xmMVxmczIwXGxhbmcxMDMz EHsmH6yrFgMpBAFakLicVS xnc4TsMIBhNWWgMobjhwOr XHBhciBJIGhhdmUgcGVyc2 9uYWxseSByZXZpZXdlZCBh fOqbf5EdE7tiJF8cH1ZdtG GgniUbceGiCHvyXSTyh1c1 jZQfaSphl3ZbuJJsBX39ir CxXUTpYRE3FBXfc7uwAG64 gxtoPeFjkA55qeZsqeQeIH Fys5ywA2gdyEKpp7Jkb1Js gsYdZTngf9KhOY6kpZXyay kwfCL3UGDafRFpfiOtziH8 aXhpFZBtoK9wyT1bwPjnnX 8oRyJrUeBpGJirFX0rIRBl R7ujhQAcIMFdMDXyE9cvCb FijK0oiHnsEyqjqaV2VSNi cn19 Clinical Information (test code = [id number]) Shivani Schuler is a 47 year old female with IDA1. Gastric polyp x 6 r/o adenoma2.Duodenal Bx, r/o Celiac disease 3. Gastric Bx r/o HPylori Gross Description (test code = [id number]) f9drmUJdLTKhjPPKIBM4SH OqWC9juYezbXq5eFmnMKAq cgC3wZBlGAflf0npVZE0l5 teowXVNvluIJXhAA5vLDuq AYMqWK4sXkMxGGYbYmByAR BhcGVydzEyMjQwXHBhcGVy eBT9CAHkBU8kbqgyGIwaKG dwKHHbqmQ7LIAtxTMxJ1Ox RRZuYO3hiyghQNL8EZPSLl fwMc0xzKKoaFvyXrBhVbBa YXJzZXQwXGZuaWwgQXJpYW b2qR6TCfjaTGK3HIVOKxrc LplqoHgwf0IuwQFnFQXmEO xcaWQgNTEwMDAgXFxkYiBP GnGuPrL4Ofa8OIX2GqM9DJ o2UJLHYJAnWuncUPZ3VlL2 UXh4GFViBV5oGQftcXUfXV dmIwzfEOmwL971DFwfMWIn G4NoS9VeNYpzCxHxHQldII DiZEFlTLyaFFEuO2SDTHYb BZM2LfNyPVJnLUo7RFvmI6 ZYSBBeWYXkFaM6BGSeXsB3 BLj2MVWGHb0aYEsnWnJiFB t8JAD3EWh7DlIdVDWaEqUs XDIdSMEaMCoubUXcSA2ioE yhNXFrOM7SAGGyNKaoWKNz RuFuS9ERA4gAMF2uMLhkrN JjaFxmczIyXHBhciANClxw HNZbXS0LLIXrAMyiQFv8je LpNTFhHiCbHAEkS87nm9BV u2RvKY0RBWt1zcQlawpguM 3jOISibcZnWIxCrQEugU1l meMLRQebNOHoK6HflhMyDM wrXVBolj4odQniYMnhEnKg bGVkIHdpdGggdGhlIHBhdG uhdaQeD7N8zcIwPH7pUDIK UOEhpX8dSZYcILSbm1PmjM SjgDojK8KgdCRfDkXiu9y3 qSN2AJApwdAiXTVvoIKuHB Isua1lAWnrQsSzJ2T8QZAr SBSpa51ukMJ6oeNnHzKemM q1rHLsGFV6DS1idCmhwoRs y9m0aR7cDWBxa6T0XAQfk0 Z4YOLltbSyyHVrmFJuZIOe JV0dbqGxZR70BFAzTOthEP goAOA0LGD8TKRxtQPit6gu jmapHh9gWWhkTY3yUYpsGN 53IZNoIPobAKClI4JyB5M8 QJxbLDUuIRMrnQYbvF8biz KwxaQmbTg8VJAjQDL8bAOw vBrdHLSzYqighRB5IOTnBe SlawBgm2OvlWg8iEKtPOmu NHFvqZ4uiP7pARUhDOHzlo JFNuvsWATpTWaqr7YlWAnz cGljWHNhMzAgDQpcZXBpY0 5kl3HNl9Lkv3lbcTykj3Ft aTWvWF4mlWUiEF3Hj1krYK XcrMJrRGY9JYbrn8kyWNcw TRL0BMBcMiCrFTLpXU0CTo EvYIsxCXy6JOgaSEt0KBf1 CH6PAnOfPHXsOia5VbB3Vr FmDPt3EJytZP6RSFI7QORm KMBjHPxuBIS2HHNhUWy4QZ IgXFxzcyAzIFxcZmwgXFxu I41iqQBrZTrgExQySDfuiD xsLEVfEPP5BB1VIQAyDdLs A6ZAB8oRXR6rZkusgmHyVE DmkcUETqyiYICgHZ9QZQSs FVhsLGu5coLvNLDoDqEqPL ErA83jl2NQn9FcQG3TJXa4 ivKpchdjaY6mQGSnslFmk1 IzMFxlcGljWHNiMzAgDQpT yDKguJ6cmdOIEJigWHQsE8 TvoxMmAElzSLIkwr7xtKxp IGxhYmVsbGVkIHdpdGggdG noQDJgbTnkshGoU1E6nnCh BD3gMSXBVPHpsU8nZXCsIS ZrNWZkHRZfuC5bLCI8e7Ob leAzSVLZTQQyjIvfCE70kX BjZWxpYWMgZGlzZWFzZSBh deSncjBml31fkjPen2QuGJ 4mbChlMBjXLGppQsBqVD0k ETWzyuWse0VpQA7vKPSskR FqAYRwtjffnFRfZCu2nIAs MMAeBqGdtIjww4FyGDEwKW fuOK11yfHhJA7cNNjuPY9y BUnrVU3pWKQvEDQsAIGtGi NyxHDkMoDrrKXgHrNtE71v GyZTkIEst5IiT1aeDN8jrD JuQudvsTPxDGYgyQxvw4Pf sGVhXWHgr4KxiGTxFJvbQF 6vJXT9Iq5doGKpMYEwgjK2 l1SfETcfPIVmMaizOVFiTH xxn6RbMFEonEUGy6OnGO2L XHBhciANClxzYTMwXGVwaW NGm2RlZGDEJhavfKqiAoQn mWLfAvE8BDDovJNeVPB3BM 6iqTmyPQYxDAd4GAskBCQr N7KgN6ThXYnpEpUvKXwoIM QcJQRoBPveZCScI7VNPWRq ZHM8VeHjELPmVOm3VKpnI5 MAICRxTECfYgO2OZK5SpJ6 SOh7UCSOXd1qMNkrOuHcPI QiSoP1XEq6JtMzAADlCzNo TCKsGOXjPVzgiPFsFS2xmN aqMOMjMINlMAY3INZjyIAF n3MePXPnPPlsCuCzVGXXCI KWVA2FCoATUPTiXzAfcGAt TB9NIXDrsnTmUZdjnLkofV 6hvOTkU8vvFwEmGiyfrKmw TmVzdERvYzEgDQpcbHRycG FyXGxpbjBccmluMFxzYjMw MUDtmYYLf8LzIQQEXhBjZB NpbWVuIEMgaXMgcmVjZWl2 HUUcmI5wZh6qeUUhzG6shY SlJKxoUARfr6p1yGX3lIOv sVJ3nOLmwFpaRvSlVP0etC WdFFLGHT39tFSmqdYiWQRq iA6jLJJyQEEgHXM3xfqbQK QDKMK8hVVdy8B6OMceBTI0 vY8iqOgfXcOhZ9J6DECiKM Dqy78kkRP9piGkLqHsADVf yy7yvX4tCEgtewRsaCybok Ktz1Z7JOHjw6W7WQAuibFg bBMvxTMaYIHaRaV1PKMaRx D4LJQzECTyuWDoZZOqDJ3i VGhlIHNwZWNpbWVuIGlzIG OhsHUfyhCvBHEdup58L6gf JXGsyU4it0jmGiSgAWEuAK NuiBTzbOO5CVHamB5fiH03 agOfpnOBEU3mgQAzCK3XCS NiMFxlcGljWHNiMCANClxw NSTdJVydt1OfEHmydOamXT CwZxLqXSvCvPvlKRVFJ1bn eKTqWNskHORCRQbGI7RLGE 5QROXdkUJNOZP9DW9aZOfb LKIaX6QlW7WbfnB7j7dlcJ rtp3PzdWAhEM0vtBUiER0W XHBhcmQgDQp9 Disclaimer (test code = [id number]) f3dviCFrLSIaj8moSFYhvC FuZzEwMzNcZnRuYmpcdWMx AIhgprRxYUkwx8QwO5PoUb AwMFxhbnNpXGRlZmxhbmcx ACQhCRF6heObBMBsRKkdQS XfTZnlXp4qsYJeiNuhEcFk HAZyk5aktrKPNVezJjFeV9 55DSFcBJydd5iob5BlRGOx jHHac5U0TRUUcpbzwUy4mE ktN08dr5T4AgmgK2piMDHi ORSzO2ExBB4gFMMjEme1TL V0QEI7HJZoKZUrB6BlWN5r UBCrdVIwEWu5x8lftPwaOZ CnLKA9v4aoGNacefVkNM4q vi0ihEw8r1hczwMvAYOcQU ToyCMGPQSsQ7TkvJqqGi8a vCz4lJjdRohxQIC9Uur9DK 4tro16fez8fGkvWGVmlmdb QiV4SEofAZXkjjvvFPk2BI pfVTNykMI3WASpqAAfK2Og ZPVrWE2twbe9VEE4HAciFA LaLcI4WHPljIAqRCZjnXtu HImcv062DEA2UrZfBY7wA2 Ajo1S0mI8arCQyOCZnmJVq IjMtKATjsa7uzWTbRBlmu6 XmLHH4cbT9zOXcsWRjKFBy KG71Sioal5SxTrujq0BxT3 2rsAJ9MOwlx6zrPQ5sVdP5 udVvVWpac6qoyM4zAqZ3TB tdFU2rZW9hDGGruS8fvqfa XHBnYnJkcmhlYWRccGdicm EkOj2msWliJEN4IKkxN1lq rP5cXiZ5MGafP1gfmK2qIK d9OFyqjXU4LGPyhA6xUE6v rqjlo2fzKJooMXajZGXlmu D3rlX7DLLocJHtU9LffI6i LSZgUF0aztaiu1fiCHT3NF wiBMBbHWV5VzMhYMKdj6Wq zof4SnPpa0RhjFRcEVnmW1 3th306FSLqfdAxR0urfBJf swagqAJjvlfhDHomeoU3UK RhslTlo2VbIISwOLS7MQuv MUwbrERqVFVfoQwsz3vrD3 RscGFyXHBsYWluXGYxXGZz MjBcbGFuZzEwMzNcaGljaF mzHLxbSuMoPVTeLKcmD3tz RhOaK1UvRVUuHjNvkBNiJ4 ggVGhpcyByZXBvcnQgbWF5 PGneI1t8ARAnhvCrzBi0ri SzQvRyWIBlLOA0SPnukGOd KZSif5GotuerdHPaMc3chH WqVINgtE3dHMQmOMZiYBmp SF3weMd9JEGGbFOjiINhCi OGAQYePW85fpKnAUOPuxvi v8Y6CVlcIWIyu3CnpXQeU6 jri2SpXOXyz63zWE8nb7N3 i2ujLSS0JI5bn2YyFLCvbU BqhMLlFGLcf7Emftohm3Ro GHMlibGxd1DkFZJjzrUivI VlPVHzukZvcq5uykZaJTXy AXXsM5NtiwalzBcjjuPoDI Galp6stuFnCZE3CRGYJIVh AXAbv1WceI4ubGKZMRZ8wO Szza6eibOPzASiKUXoqe63 HOOhYV6jP4xySNHfBXIzux JqiSGzg7OhNIDaoIH2aROs KF2EWoSJa24lFULdEZJObs PkAMBotSogrXW7djA4wK2h IChGREEpLlx+IFRoZSBGRE SdBP8ruqTnj7YzseAgzLwy EUJkuPFvj6XrkKKpi2IwmR nqi1PivVCemJBwLZ9tCZKx clxwYXIgVVRNQiBMYWJvcm J4n2UfAFDpIQAiPBX1qNdr clz8JTOzxA3fBAJjI9qnqy jrIGliJWIop3XsnN4vjOKO dETst4MdtYRlbTZOjAAnEC 3dpuXdGCgBEVdBPNA0ljWb XPJvo1ErCXuyG1fxT68odU kuwAm9oFY0WXQ3vE1mIkl+ IFxwYXJccGFyIEFwcHJvcH LcSNJwlFbjopVqR7RztqCw wJ8hrMHrlxMbFH1yKV7nO6 I7xTCkRHTrdxTzd5ojJRju dmUgYmVlbiByZXZpZXdlZC Vyr0YwGWsjDGX1QWazguPa bmNsdWRpbmcgSCZFLCBTcG FhmMZzLUO2GGwlthPewdPw NE2zxK6jpLyneD6wlNDnmB Y9dvhdSSSjBCXusFuvRFNo SZ6hpVuokE7lAoUpTpHyQA afLO9vZICiI0nhfWYyVVDt WOQxE1yvAmUqaA9rmQeaNO xjZjJcZnMyMFxwYXJccGFy XHBsYWluXGYxXGZzMjBcbG FuZzEwMzNcaGljaFxmMVxk NrSnNSIvUEwgE8whQeYtM9 MzTAGrFeWoqINvX5hlKDmh IHC2EFRxYD3aaGXvSC74nS Wjq0uyDIyvsYwglg7zP47r hHIfHTzcrFnjJPAjv23fw2 HxEBZfvyVqln4jLSTrxkN4 mJ3gCQXcqLrvITDdzDCxWJ Ssv3FzFCdciJTidhKqILmy AMHiMCEspDJxrgY2pgHrgn VpagCbLXXpnBurMYGnv6Gl OCOzUPiod5Dydg3nkZScRK LzpsWLpLeufUCgcL9iB9Om XLXxKSXivq8tEMVujL9yYJ jzh7RbtyeyMTBwPYObWHYb hlGqpa8jHMZztUDENU8YZP hteFHbp8CgzoIuB8gTBLY1 NUQwNjYwMjgxKSBleGNlcH UjSWZpox72GMAgcW2olKpp ZXCueS0boB3vyVqqtM7bGr AnRqVnETeqNV6kAHPhM3lj vKZoGRJeQAFzQ1jjQbSxhE 9jaFxmMVxjZjJcZnMyMFxw YXJ9fQ== Embedded Images (test code = [id number]) [facility] [id number] 19:23:05* Test Item Value Reference Range Interpretation Comme nts Case Report (test code = [id number]) Surgical Pathology ?Case: [id number] ? Authorizing Provider: ?Dominic Keita MD ? [...] HPylori ? Final Diagnosis (test code = [id number]) n0jihDXkIOKnk9ovZGYwlB FuZzEwMzNcZnRuYmpcdWMx IIgswvRgRHewrHcaPFI6PX PqPJ2quBsvaLq1fBmqKAQj yjM2oNIyHHwdv1quBFQ5w6 bgktiuHEJqYTqaWy4kaACp wAdsFsJjHGNwAQz4tK70MR XopE7ggAVcGAz1VRPmfGOa cbDrWkAsRWPtsPMymSV4SI EzHN7eyodwWNeuGOyzRBZz cpH2GOKknLZsT0HoEPQbTZ 0fjpvsHQB2YMmfKTOoEVJ3 HyLyAHMii6Ircbw5FoDuyB FyZFxwbGFpblxmczIwXHBh ftYLZdZAFJ7USGSEMFHZV8 lOONVWOV9JHZELUtxzaEJg JCFkQKNbAWCRYY2PAUPmH3 rLQtAoKS6OGUEwLLXzmTRe YHCfpcOPUsBQBV8JRS3YGD wgQklPUFNZOlxwYXIgICAg LXWzTAbEQ5XKYIKbBEJQL6 SPQHuGJClfLb4eAJCKKJ3U F1jTT6VRVHUKBC6ZTSspLH ImYSXgCSNoVN3GHIrpNRZO DW6RDAJXPMVDBCuSDFHDCA KFNUiZWYGJT0BAMUzDIFZr uxlvCCWhXc7fK6VNAHLDWM wgQklPUFNZOlxwYXIgICAg FFOuUPFZF8EQJmGTZS1ZW8 5YZYQLBIPPCK1BYAUSXMkY QX8FNTSHOHQTLPMEH8NzjK FyICAgICAgLSBOTyBFVklE IS5VFCGTPwVMSEqSTVLbGT lTRUFTRVxwYXIgICAgICAt BQ4FKAinAPUZRZ9WHLOJXt dBTklTTVMgSURFTlRJRklF ICQBLGOWQA1MSs3YMNIELc xwYXJccGFyfXtccnRmMVxz n0ToN6QgBpGiMOpjbvFxRN DdGirmzegwTTWoPVI4hhRs OAFjDFftHTRxOXrpRw2vgY MvuUfrZpVbJPDle0xnpiCV XTieUuEtD299NMZrWWxso8 iio7NjJVLadFSjw0Q7FKPO dbhuaTt3g9moJcHcLaO5pA CmBQxkH2jnlnOimAWtD7Ef bIZxyXb0lUkrR63ka3A4Oq isA9kyUHHaATVeK2UfSG9b BSPqYmq3EGD0CMP6MXZePT VmP4JaRM6dRMHotXQeLOm6 t6dioUzcJJJrLJE4u1bvEO ututR1KI1qro9llHg8o2fp czEgRGVmYXVsdCBQYXJhZ3 LanRejFq7vzIy2tAzqNjfy QOM1Kwn6HU7pqh93eqi8nG xvFOEyzythVuP1MUytCCZu hymmCFv2OQkiPMZvhQR3UM UshMWuH3XrEZWtRJ7ccne9 HXG7FAlyOMMfLcJ4EFYpyL MsYCJliIjaRPaty645CIA2 ZnWaQX0aI8Csz4G6lF8lhY YbCSZdhEKxQbPiTDLeyy3r yMEzTApfv8InBQX5kkN6bT XupCWxRRKqUW98Zadfl9Ls KrwtOQS8WHYkuxTor5Wbz3 dgWhJaoiVuZ7ovY6JiESAi HAFpDGBtBwJywkQhv5Zub0 OosJDhgQw5t2jzWYFgOBEk dDuyu2xaJQD2XHRgX2U1iM Ewx9imCZgzMPBsqXY3zuV9 FSLafHWkZ6OnkL9tWGDpGJ 2pdei7m3jpBFD0FKhgGYHw NzI5teX7GRLoxQTcBHWwpS voZYmyf267GFS0NvCiXHUa p5NvV3ZpgRcoV60umSexJ8 2qRZJnoRlblN3ndCuqzP5n ZjBcZnMyNFxxbFxwbGFpbl xmMVxmczIwXGxhbmcxMDMz QZypE0flUjMqUZQjiLfdOZ ieg5NyGVBlENOeKohvkzLi XHBhciBJIGhhdmUgcGVyc2 9uYWxseSByZXZpZXdlZCBh bGksh6RhV3vnLN7wF9ZyaS QoekGgiiOeMBnxLMDrz4j3 oOCaoSszt3RexRNpCA19hb IuMIZfSNQ8BONin5aoEY23 ehybNeVwpQ29ikUiwlSgSP Pfc4cfV5qamMVwk8Agg6Xl aqLcIPbvv6SaBX1wjBQopv oyvCF2IVGdhSRygzRfjwZ3 bHqmAGPqgX9glS5ttCcpdS 2kYuLnTgLaJHxsCO3eYYJa B1jqsWLmUJCbFVGcG0uoKr VynK2ikDhoZgxjmwG8QFLh cn19 Clinical Information (test code = [id number]) Shivani Schuler is a 47 year old female with IDA1. Gastric polyp x 6 r/o adenoma2.Duodenal Bx, r/o Celiac disease 3. Gastric Bx r/o HPylori Gross Description (test code = [id number]) d8fncEAzNDXrgBLBDIM9TB HbHZ4oyZnfpKz6sHloBEGh xnU8jQRjTDsbr4cyFFR2g2 bpmgQLRbplAASwJX0aBSzy UNCcGJ9kYrJyLNTwXfQqTU BhcGVydzEyMjQwXHBhcGVy dXE0SRElCQ0owhnbWAyjDU wrCKUpjhN5KOMmpAHgZ4Uj MJXkDY6jzqdoUJB4IFGVYv rjGe7xbLOadDrmBvKbIwYk YXJzZXQwXGZuaWwgQXJpYW e7eJ6TJglcIQZ8APOQJpda LhwvmOspq8DheAPfMEWzDU xcaWQgNTEwMDAgXFxkYiBP DlSrJvV0Kln0DNH0MkH7WY d2AGJIUBYpZzscBUS7VoT9 TGd1CXVvAN1zYHjiuAXqOA coAcedWLrwW033QVwcQMDk U7MtC4UsDKndIhNaANflQJ HnLVPsZNbyMESmU3XJNWGz EER4McDbFADbRZb6LDtbS9 QIZSWfAMQlUqS6LUWmAkY8 BXt5TYLSCs3zGBllEbMbBE f9HAQ7XMf4ThRrCRGfNmSc ODYnMUDrORizcOTtAK8ddO qbNYXyCF1SBZObHFgqIDJx LsKzC6GRO9eERW9mRNltyM JjaFxmczIyXHBhciANClxw SXQxII8KJOFjLZbnZTh9sp HyYVQjFjHuYMUiM37fq7PH k1PmHS3UZHa6qiXqxryevC 6mPTOkniFrXTiZzMQmdO9e diQMIYlrDTWjF8SgqxXqQF mlCDGisp4jkSrpFHhxClJy bGVkIHdpdGggdGhlIHBhdG iotpIdD2W4tfEcOL0nFMXH KCZglQ0kACLiJLJkl8UjhT CdpLveN2JhdYUwSsMmo4t5 wES3HKJawyTqNZZflMSmPF Fenu2eHWunFxTbX0K3GLEj WJRny61xoLR4qlBzWbLowT p0vKKjDRD0OC2ajAbpyoIc b9o0fZ4zMSTfa1K1CKVhs6 I4EAWtknVcpIFvuLVcZUMn NJ1nmdRjJK51ZAUmSBfbPO xjXSP6QWZ2DHHmbRUjd3zv sjddXo7lKIdhPP4rVNsoHD 73YGIvONdqUMIuT9CkO8L1 CUgpNQWxZAVikQSmdH2ugl GzhpXzzYx5SJFyXLD1wCZy cJglPYQrVvobcJD0JWXfAy AvazMxj7IytTk4pDXnYEbq HUIdfM3lqR5vXEQwFMButa GZVlcqAUZfCMohw9ZlHEqz cGljWHNhMzAgDQpcZXBpY0 6om3HCb2Ryy4euwLzlj8Vo hPVyNN3gaBFkQD2Zq6fjYL ZszNHqCZX2ZTxzj4deCGsy XLU4LZGrKnFzTBAnSP9EXj DbJPfuYBw6QDfcSKp2NSv4 QO8HGeYaWEVyXiq8FuE5Bx XcTRf5IUssBN4MCIK1MISj XDJxOCzrRDJ2XUEtMCh3LE IgXFxzcyAzIFxcZmwgXFxu B04tgMEbTDrvIwZkHVxaqP voSWUwUXJ1ZH0YNGLkTsIp M7TNM4gESY2cZjrfhhEhQJ FncdDGFlpbAVHnIT4UJBJl ODdoDLj5hsZdIUYlGxHtTF OmU50ai0FPl0TrPC9ARXp5 fqVkzfnmqA5rZJDwbmFfq3 IzMFxlcGljWHNiMzAgDQpT fNVduL5ukwYWUKydJZHpD6 FggaAsQNuiEPFfbx5tmBmc IGxhYmVsbGVkIHdpdGggdG mgTPTzhKmoitOtN5K7tnMs CX0lMUXZJLXlpM7yWMAtDE NbMIPuOWDujY0eEIS8c9Wj uvDbBLJWBESzwMpdWI91eF BjZWxpYWMgZGlzZWFzZSBh naEtnlUvh68mguJsv5IyUU 4aaArdFCeYJJvgAmOaPY9i BDIvuvIdw0CzMI2bAHFexJ SzEEPiusvomGDrLNt3jUBt LIJpHcSklMcna5AkHWJmMX jbUY44zpPyJO0zUBqbTV1w LPvzHT0tHYJqZICjABUeNq LpaLOfYyUlrRLwOcZpY25f BcYVdNNve4KnO9zkUO6cqE EjPerncOXtGCAvoNztp8Td pIHjZZGme5QenTMkUBxzLE 9aTTD9Bg2goFQkDZBbtcF8 b2DvRQizRHKdUohfEHThEN wfj2FmSVGxsWVFd1QeZZ7E XHBhciANClxzYTMwXGVwaW LLu2WaWTFPVcpcyHrlXsRd lDNbKnX4BYMabQTcQYB6FB 8brMtzQUXoSEp3XLcwCEMi X3IqJ7VyVGgkLrEeHCgpSG UyNJGyUEgrDYJkO6EPSGXk FSA7UgIaJRSjPMd1HJkpM2 CBHIElAWCjJcS6KPA4NtF1 RWu3LOYGQw0fBDntRdWgMF OiRuY1VQt6XlVxKKVzObSd SOJzRMPuYRmhyGMtAL3wsN vkUCLnIIBbMPH6VWKobVUY l4MuWCLzERskPbXbNOHPHZ GLXA0QTePYTDRbKbLjcOUg CQ8ZMEFhmyOhRTqsyHwkgN 5yrECrJ5shAeLzHeoadXxs TmVzdERvYzEgDQpcbHRycG FyXGxpbjBccmluMFxzYjMw IROsxLXPl9GmCKUVFxQeTV NpbWVuIEMgaXMgcmVjZWl2 QHOjgW8wHz9scKBmsL3akE TcYUsvDPIqv6v6hWB3bBVm yZV8rDBmdXsdKeIhNW6hhG NaZYLNSK82kAFkmtDmUPNt vA0eIRDbSBMtTTQ0ejetBO UOSKK4vEQtq6G9RUgsMAB5 fN4hvNuzMdLuO8X9UMFtYR Nsg78wxHB7uuVlUqDyUDIv po2deX5qHEhgvvNhcFtwhk Rxs7Y2FVMnv2Y9STEnixXk tEOjxIAnGGWkQbY4LKZiLe W9DBVpNLYznUHzJXFnOW1j VGhlIHNwZWNpbWVuIGlzIG IuzETupyBsYKChab36N0gk KLRthB0pi3aoMtVlSRZfTE BvtJRtvJM2LEHwdW1piZ24 fpNsarIGRO7dtBKsGR3SHU NiMFxlcGljWHNiMCANClxw OZKkRCquv8NaQBmmkVifJR HeZtDvQOmMjPhwYDVFW4qs nJVoUIkjHRPNRUeCD3CPLB 1XIYQmtFRKKZX6YU7pJGme LZTvR6OfV5GhggG1t0hgvC fuj0PkpNNdHP6qtFZmJS7D XHBhcmQgDQp9 Disclaimer (test code = [id number]) z1aibNJuFELbi7lhQHGqkP FuZzEwMzNcZnRuYmpcdWMx HYdtwlLsDIpiu4OtE4XzVo AwMFxhbnNpXGRlZmxhbmcx KJVlVWQ4rfPlZZVnQRywFW DuBKziOa0bmXTslMibDwIy ZUIqp5kktgMXTQhtDaUtN0 69ZNMlAVtms7rmf2ErIPZm nCCen6P8SNHNtrjlaOg5qG ozD15id4O6SvzjR4obIOTw YYLwN2XmIF0bUVSfQmv8NF S5KTR0ZSOyHABqC1PjXJ6q UAOqrNHoPVu1f5bsmGozNU IjBTR8m6gnGFtltnIbKE8r my7jiFp6m9tfnrIiIQQqYH XskSWIJVKaL5YaqUqyZa7x sWb1cZgjMotsBTQ8Bpd1CE 1xpr86wqj2gWoxLVPbbwsp OuZ4APlaKNJudelcTGa3BX ngGCQdtIS7GWPrlANgB3Eh LCIlBL8ftnt4QFI8HIizUO QyHzQ8GAMpdBVlBDGeoMhd ERarl005WKE2ZzTpTD4wZ5 Ake8V5yU8jbPFdBDDyzDJq CdJnZZCeji6gpRCxTIphv4 UaGSU7ykK6hJMreATvJDXw MM23Wkvzq2CpZgpxu1DfD8 4lfKT0TLkbj3vrBM8vHzN7 eoWlRQdun0rwiR4vSaV6JY aaYU3mHE9oZYBvdP8zvegk XHBnYnJkcmhlYWRccGdicm ZqXx1daEycYMZ7MSdhK2vk hA5tFwC3BVifU6numI7nYR h1XKqoaTE3JLLodX5rWC3l wyusj2obFGcsWLghWJCzsz D1xfZ6PEMoqPHlF1UgbR0q UPCmZZ7jaqcaf3xoOTY9QR hbKMRoMAX3XvRoIAKwj9Yw szx8KwSke9SdpAPoSQdpI9 5bq376FIEukyBwW6etqUGj jkdrbVIymkhzFZsxmmO9ZV PsojQwh7ApLTXeBPN6RSbt WOzpiSMqMHZqhOgee0qpD2 RscGFyXHBsYWluXGYxXGZz MjBcbGFuZzEwMzNcaGljaF vlAWwvAhGaQBSuYUdhD8ow GiPjW6MeGFOmLkUaaNBtY3 ggVGhpcyByZXBvcnQgbWF5 LBuqV0o9PULiawIhbJw5fc LaAxCoWRYyRVZ2JEzuyMAn IUEuc1JnxyxriUOiPo0mcZ BaHUQhkD2rTWBfAVYaCRdh NL8hmEy5HATGeNZwkWOoMw NFRBSlFT67dzKvCVDTnydz z0K2PFsdUSIep7DadBCeG0 txi4CjNLAaq44sMF6mi8I1 z9ykDLW7AI0ry5NtKMSdiA BrmSMlFIUpl3Tedzpuw9Uy UQKgfnJoe2FeXHLzcpGxjU KpKCSufzNlit7enrPcHPFy ALLeO6YjignvkDjhvuKbTK Pywr0dwhPyPUN5DRJQYQVs AJEsk3XcaD1ulTCRESG8nT Wntx2qvlICaGTjKYUcez38 PLDxUT6wQ1lhXQQnNEHfdv GobULdk3MeASHaeLZ0xXDp EY8FDbDPp51dFAFhUCUFux AcIKEwkIdwxMR9njR1rB2e IChGREEpLlx+IFRoZSBGRE PtYQ3dquTlq6XkhhLhgSep NSSutRQff0DjiLQvt3EfrK rog7YadLGojOZlLS1bYKBo clxwYXIgVVRNQiBMYWJvcm J1d1StENMhVBIeZCO2iPvo ywb6PWZtbU6kGLQkT7tcbs teICgnNDHhe4QlkX6xkAUP sLJen5BthHHukFQMlCQhDE 1wpyToMUtJCFcURNJ3gyYs ROUas6LdNFoeM9afY71toA keyIv5jDC0QDS6rR1rPyf+ IFxwYXJccGFyIEFwcHJvcH MqEVEuxLrsxzSaP6KzggOg wU2wrUAvzzNiCD7hMR5uO2 M6yBLeBIOsxcNxq4ddJBvl dmUgYmVlbiByZXZpZXdlZC Hme1MtKRblSTQ7TLroyxYt bmNsdWRpbmcgSCZFLCBTcG QegDFxWNW0PCejctCdwvOu AL1dvS8adWsrbS1ehSHiyM B1nzzaNZFyQDKihZedZQNw IN0lzJvjfH4wVnVyBhGyPV wyZW3aUHFfF8yzpSExYAZy MXTcQ0ylPbWeyH1ozLasUO xjZjJcZnMyMFxwYXJccGFy XHBsYWluXGYxXGZzMjBcbG FuZzEwMzNcaGljaFxmMVxk NiHsQMSrMQhcG8pfVlDxS0 KoBUGaOlVduZUjY9enUHxx UAX9HEKzRW8fkWWmLY77zE Nqn5yqOBcisVempb7kN99h gWAyWHrznVayKMYlw55ea2 AjUABvaaVlil1hXWBjdiM1 pX9aPDVnoVljNLItuQMgJV Yqt0ZeGFhhgQDjjzFdCStd DTHyWRNxuUZxldH5clWppg XmfnApRRRpbXtiLAUxk1Mc MILwMExii5Jyjf7oaUYkQY PrcpCOgTtcoGSyaA4pF2Jp ALCoHHAjhw7iCIBqtW5aNV nsw1AyhdhnHLEsEJQsFCIf aqGlln2mTDBakNVYTP6SUI szsOYgv6DbwrGbK3yNBAX2 NUQwNjYwMjgxKSBleGNlcH IaISDlaf03AECcjJ2vuQzj RKKwcH7sfE8gkAtkdK0gXc NsVfKaNPmmWY8lAEPzF1in fPItDYTnWFElE9glDaGgqF 9jaFxmMVxjZjJcZnMyMFxw YXJ9fQ== Embedded Images (test code = [id number]) [facility] [id number] 19:23:05* Test Item Value Reference Range Interpretation Comme nts Case Report (test code = [id number]) Surgical Pathology ?Case: [id number] ? Authorizing Provider: ?Dominic Keita MD ? [...] HPylori ? Final Diagnosis (test code = [id number]) y1mqbRTdDAXet1czCDRkxU FuZzEwMzNcZnRuYmpcdWMx LMayuqXtWCkmzNoxDBO7IN AdZH5ckLyxbRb0qUzcMNJe bxL4oIMlMEhfj1tzVLY6c6 gxwgndWFYgXWdwVt0bkCFz lOleYfYnTRQbGSc9sZ30ZC MfrB8jxBXfGYy8AHApxBYq gmVyQtYmNQHtaJPsqOZ8DW ZvQZ9fdakwWZnePBhqAVWu bsA0MNFedXEnX1DbDEYkVG 9nlrcwOCM2EMojKWSaUOJ5 DnIuGNObd2Fsbbh3SnIzwH FyZFxwbGFpblxmczIwXHBh nvPLVlXUBF3FSICGVTBGI5 qTLQKSIY3OITOYRzqpcYSm ZCKwNARrJCHHXT0QBSJxL3 wGTkAxDR8PYSFkLZAdcGVp MZDocnGTTbVDIR4QQN3AOP wgQklPUFNZOlxwYXIgICAg DMKcSFmHM2OFLZWrGRKXC9 WSWInNTJhlHy7rOUKNYA8A Z2tFP3LEGWJQWF6DYRpwHI EfOBOtNUCnTP1NBPwmQWQY MK6UAQXOZQFOSYrXCQSTAF KPYSvBGSTYO0UKCBdOHYGq bjpzZHMpTn7lZ3FHZEUZZU wgQklPUFNZOlxwYXIgICAg DUNbKEEND0JVYfWPTK2GD0 1MGVNTHNQVII3EKMNIQGwM AA8STMHOODLNZJANQ9XmbH FyICAgICAgLSBOTyBFVklE PD7KGOOQUbTDWMuRJSVqIM lTRUFTRVxwYXIgICAgICAt VU1SQJglEHLYLQ7MLLXLFv dBTklTTVMgSURFTlRJRklF VPLNHRWGCA7SNp8ABSZCMr xwYXJccGFyfXtccnRmMVxz n6MiK9GmOmHcIDmupyHmZI NxHrlqhmrzOGMoTVQ3laUa HOMxXMaeWLWiYYajVx0vnT HspAacOlPiKYKjr0cvkpSX YSlqUrUjI051CSPoWYkvs9 igg0AnBASoxXZal9N2HWHI jwhapHs3k7chBcExXlD7yX YnILgeQ9mgszBikPTqN3Oi lURilHo8sRaiJ77hy7T5Sr abJ2srFZJoDAAdC1UcZN7q YPFfDnd3JPH4CQO2KPUaJB VqE1PkNS9lWSTnmHBgAQp3 j6cruKkcJMNmZEY1d6hoNL qrutZ4YO1tpf9meUz5p7it czEgRGVmYXVsdCBQYXJhZ3 GrtUvhPe8bfDg8yJcaBshp JIE6Itw8QL8ete07cgk4bJ ovIDDdgpobQaM6IYbcXFMe pczpOCv5ZJulTPMfiUJ9JM YseGTrD6RmVHRsSY7syym4 QQR8RUtuHYTyQdF5IKZxbO YsISJsrRrkQWhwj576GIP2 GwKzVE1cO7Jby3W1wA4tcR NxGSIsiGKbCuUhRJUgjj7u oFCxMWeit7GrXDT0onD0dW GweSPgZNSmIH73Txztd1Wm SrjcZGZ9VOXifyDyd6Hhv0 uvRwMmeyTbF6mlW2YoHQQp XFMvDFUdItItwyTiq4Eup8 ZosEDfxQw1e5khNSOuSSJx cDwuk6lzNLP5RXGbM1S3wK Ccj4utTKuvJKHjqHC3pxR6 DCOikLDgJ8YltG7dNQNhZR 9cnxz5v2xzYMB6YIcnOSCd WxG7czA7QRUawQCvTUJieU sqAFgkc309RQS4KuUjUBFa g9AwT6HyxVkqC99xhKuyE6 7iXDChlAvthO6wcXeacN0t ZjBcZnMyNFxxbFxwbGFpbl xmMVxmczIwXGxhbmcxMDMz IWzqM6vpRjKfPHRxrJbgLT jhz7ZoIQStEEBlKqeqbyPa XHBhciBJIGhhdmUgcGVyc2 9uYWxseSByZXZpZXdlZCBh aUggw4LkB2njDY6qA7JlnM VxiuQjtuGhDUyzDKMsg3v0 dBBhxWmtn7MbnTBfGL26bd YrYJDcRRJ5POYqy7zhPH94 gakwMsFtxK62zrTqtcOsMN Jdd5njX2wmpBStt1Hgy3Ib kkEeIZxwf6CnES3ceCHodj zloYM0FASalRVptoZscwF2 rRqzKLItyK4xpO4zjUgvnB 2jCzOhKqNtKUqjOR3jVPUi H2hipBAxDNMoMFLxI2luKw AvfO2jnQpgUgdhdpM1VVSk cn19 Clinical Information (test code = [id number]) Shivani Schuler is a 47 year old female with IDA1. Gastric polyp x 6 r/o adenoma2.Duodenal Bx, r/o Celiac disease 3. Gastric Bx r/o HPylori Gross Description (test code = [id number]) e2rvlXJwXACbaPWXWXT8PC AjCR4lnAouxHl4lZnpVLVp vqM2oZYzFVtkk3wfAKH3t6 ihcgYQDbspIMOmPH2kDEsd KYEzOW2rZkZiARDsRtIiGM BhcGVydzEyMjQwXHBhcGVy tFG0TORvAI0awiduYGdhQD bxFHIahvQ2AEVutFBcR6Ac GRZeRV1pvaecFAP9VQCCJj aiQc4buUBssRtbKtTsJwKb YXJzZXQwXGZuaWwgQXJpYW p5nN3BRytaJKL2ZNFJFvzn BtyenDlfd6VwqNKoRTOyCZ xcaWQgNTEwMDAgXFxkYiBP DzPoZjR6Khl9TDN4GoY3EW y6CTBXIOWyIfooGCW4MdY0 JYo9BUOmDN0hQTwsyKRgTG kvVcbnUFooP250TSarYMTa O1OtS6HgBSstSxCnPTwkMY BoFRScQOqvUXXzZ1YUHCDl BAE7IwVnLPWfPVy3WPinU2 QUEKQeEBRzYiK1BDDdRtY1 DKb3TQQTLy5jUGegZzEfMM m3UIK0FOb2KgBxSVKuVaUk XQGzDJKxGOtpoTTuAO1wgM fzJZEfCE5KMHUuYQhdNRPu ZhYsA5KVY9nQZO8kGAukjO JjaFxmczIyXHBhciANClxw PLTlZO3QACNdJVbgZVm3ud RxGZWvArZdRFHfZ43mf3PX w3UsLV5LSOo0hmZhqzsneN 6yHFOlaxKpIWkLrTDwlZ9h otHMMAjvMXXgX3UxksPqTW zcKGJjvh8qvPneUJghTtGa bGVkIHdpdGggdGhlIHBhdG otsaElH6E0wtTwRS2gZPYV XUQduI7dRAFqSWRru4JqpG UxmDnkN2BwyZZyStTyk2m1 zEQ8CZXpcoPvAQUqnIAsWM Ijxp2dMEcmPpIzC1R9ITTb OSJxw00xhWY5bdUgTgJhxM y8rOKeZMV9SI8ogActrgKj d3d1mE8yOCXxk8J8MKNaz0 I9DKZixkSzaLCvaHZpSOAr KV1bvmSkRU15NTDgSBenPJ cbDBS7ZVM8WVBufWAzi9eh evltTq0sJBczXX9oFJjnTV 69GVZyCDdlGEZsS7GfL6Y7 GZfvOMVaDUKhuTGihI9cmi IzzaHwsSn1MYWvOQX2jRHu dKkqNSFaQnpcrUA7NMCaUu CxndIwf5UgcEz5hVPeMMcu HXXpsF2vqR1nDVBrSOHvwl WFJywrDDIuWNxib3KzZVvs cGljWHNhMzAgDQpcZXBpY0 2yc2MPk3Btj3exnXcox3Be rCDaTK5ceIWeAT4Br9ciQJ XhuGWwAHY7NKkod8sjFRld DCH4LPIoBxYzPGGrXX9WYh JzTAfcOVh8ECkxFKa5BZi7 GU6PGtJxTIQrGpq3VuV8Sd CaUIy6HYhwTL5LBWP6LCBf DPJgKGlaUPY4MHDzONa3IS IgXFxzcyAzIFxcZmwgXFxu H91ntVGfTYrdJyUuBNcjiN lbLWEeCKT0EP3XZCInHvGt F0HAI6qNSV3uIoebfbOdXJ FnrzMBXrgtGJDkRX8ZTLBp HNkoOBo7pyQrNSFsCvBwTI EsQ79nq8BEd8VpUI2PMPu1 xhZwhjlegF3jMXWeouOhx8 IzMFxlcGljWHNiMzAgDQpT rPXxxE8alnVABFydFSIeB9 PrkiVwLMvoJHUrhu7wsGnw IGxhYmVsbGVkIHdpdGggdG euZUAwpCrokpQaG7Z9ccAn DT5tBSAALAKwfY1pFLPuMU MpCDTcEPBqyT4oSUU8e3Fj qzZvFSRUPUMzaSahIT24kG BjZWxpYWMgZGlzZWFzZSBh qtZtzwHvz80oxwIvf8BcKJ 6qiRorBDeKZYnuCjVzQH9e RTUudkSxg1EiAQ5mWXXhzV SiXANarluhtBVdLYk7qLIk NDUmIwVeiIzuz4EoUYVlXI ytKX22jxKyAG4vRTwbAN7a VEcmAA1nIBRrJVFxAREhMo CrpXXpWePtkXFjNxDsX90y ZfUUqLHea0JyV2kpUO9mmC QiGfkxwSGiSHZgbIauu5Tn nHOqGVJiv3SutMTmGAmbBE 3xHNW1Jd0ysEWyFZCvqlD1 t7GpWFwhVCEuGfgqYRAcSD klj8ZvMAGkqHOJq2XyRO2Q XHBhciANClxzYTMwXGVwaW KBn9NfQJDVFgexuAudYaJu bECoMuY5UXXyuTDsEVA0OK 7feRqnHDCsHKk1QUsoEJEp J7StL2RnLLgeNtAzEQulUT JlZPGeOQmdSSUnF9GLOOMu BDE7FsQmGDGaTHu8BSfyY9 VBAJLaOTIbRkE3HQW1SzZ5 VAp6EWDYEy5cFQfoWaTrBV SmDwZ7YAf8XcBdGCUxLnCp RSCnRWBqMFiwnKRbLG6htM rmCJAtZZHwDHP1YBIjiIUT s5CgREIfDUodUmIlAWDJON OVOH2XVwRBWHEfJqYyyLSe UB2KEJRatiPxIVfrrLgkaW 6lhNOyR1naLqGnJmdgcLfp TmVzdERvYzEgDQpcbHRycG FyXGxpbjBccmluMFxzYjMw BHUrsYJZu7NrTPRDGiSzEZ NpbWVuIEMgaXMgcmVjZWl2 FMQcsY7mSf0qzSVejD8maR EfGAhdKBSpe5b3rPW8vCIc xRR1pVFhsQkvOpZkPP5yzB PpMROIGT17vNFhtyCyARVz jU6oNUZhZPUgQMQ4uaxyQR VSNQL0cZHpo1U3YVmpVUO4 pS7qoTqyPaMjC2U9BMEyYW Kjl91pqQP3rhVzKcCdYPYo yp3apR5jYFhktmCueTykcl Pdw8Z9XYAaq9S3EGPwtlNb xFUwzTLxWPZyPvW1DGBkVj S2LEEtVAUkuJOfWYZzEV5j VGhlIHNwZWNpbWVuIGlzIG LvlWIanhTfLRHsbb68J6uu LQVwlP6yh8ouBaPyLCXmAJ FslACdiXS0FUMbzL8uoU13 fnOhphCMZP5hgEUtNG2BVS NiMFxlcGljWHNiMCANClxw CSAbSPwpm4ZsCWyvnJpqEJ WiHaPjKAtWtQraYOXYQ6cn xRVpEQqbTGYIXQbFX9NPCM 3IVAUtbNWTKMM2EJ3bLUdk VDPmP7AxU8EewlO2w6wweB dny2GvoNOuGS9ntDCvRV7V XHBhcmQgDQp9 Disclaimer (test code = [id number]) y0eykHMuLECig8efENWxdO FuZzEwMzNcZnRuYmpcdWMx ERqmwgTuLFpvn6AgD9BzZo AwMFxhbnNpXGRlZmxhbmcx BZBaOEM1qmGaUWTwZHefER XcBJalXy8rpLPoxGdhEeDi PQXhb2rauoMWRTsuKoOlF8 88OKIeTHiqw2iug7QjBXOp vCWud6X8BOKHrkpbsJh8hJ luQ14ib8W1UijfV8giDTVw ABKdA6QvNL6vMFQoWdb8KD F7ZDG6GUDhRMOrP7TqIN8n CBCxmOTfRZe3w7udjJweXD TxLVW7u5biARwgwbXjCW3b xp7lpSh0t7eocfSrIGPbKA LqsRVWQCSxE2AnlCwkGg2v sYv4cFmyJrftXRK4Yaw3AE 5oae83vjj0cSzrQEUogddf RhC6TRujTCWaoovvMNv7UA wtWEEumEV7GQIxdDOeZ6Xs ZULxLY5qmeb5MVM0QEbvRF QsRwF4AZHbmYLoAJPjgNui PFfwq977WSM9EkShBV9aZ6 Fek7B9zN7goTWfINNoiTRz YqYzVKGvmo3jnABeWUfdl5 LsQEH6izQ9mXSnnAHjTZDq NA22Cefce9TqUfhtp0LiF0 4ddJV1WLnkq3zzFP5tDgM6 ryFmCDbey4sioJ5wJrX4TX aiPW3aWB1zWMGpeI6vowwv XHBnYnJkcmhlYWRccGdicm DqAt7kzGniACT5YZpnL8pg wZ5dCcG7PHhxU8bvhG9vLF m7LYvliZU8POXweD6yWK2v xhhlz3chXCpnIOshLTTpfc V9wmZ3INCooRKhC1ZupH2n WEJqSH8owaddp1zsGPN1TG eyOPEdAUF9ZxRyXYOcj8Mk wmc5RuNuy6BddDYnNKipU0 8eq634DATuexOmX0unqCAn biwsmROoyhmlJZplxzG5BH EkblJoj5CmALRwMDE6GDuf PNumbDYpNDSggIaxu8cyZ0 RscGFyXHBsYWluXGYxXGZz MjBcbGFuZzEwMzNcaGljaF voPWznTxBoWSCrUWzhU6vx TsWnD9SoCGHjDgCixJNnG1 ggVGhpcyByZXBvcnQgbWF5 MJgpT1m7RLRsaaUkqZb8en CfQxSrUMOlXFH2LTwcfZKk DKNmj6NgaqofcXDrYz8riP QnXRQecO8iQZHhONZeYQjg SH3mhUj1JEMVjGQojCFnCl ESQVNzEM88sqYjBZTZteez m0V8GXsmCPVpb9RdbECfJ2 yrw8RsQJLgx49xJM8ci7S3 q8fnLDY5TI4fx7VeCRMfeR AstYXeIBLbr9Veoligr5Tm ZJMryhAci1KpETZlkrQviY MjFSDbdfDvfx8gzhInIRCn TTBjM9JsbeetfMjrifBtRV Wdou5izdSpUCN0LRXZUIZb QYSpl0FwgV0ykGHMMML6oI Ziel3mkrHStJEpWKMvly65 WKZpKZ4gL2utDTQoMFDyjk OhuJFgr8OlXBBlzVQ9jYGu EC0WQaCXr24wFCWiSBVGve QzWLEgnUmnsOM8xzC5sY2t IChGREEpLlx+IFRoZSBGRE LpRV7zmhRqz5AtiuSwhWty QHPbkNIim3BcyTLtu0YtuI bid4KvrMYpfBKwCI7zGGLd clxwYXIgVVRNQiBMYWJvcm T8v1BlPNMdZWSwKMB2mZit dwl4ORUtrT5wSMWeG0xzpc vxKMgjAJVhl1GklG2pyRDV xRFgs3KrnZWlyDGEjOBtRK 1femIuFCzKVGfXQIJ2yrTj REXqs5EtGBnwP5wmD95ipH ruzQa2qZC6YZL1iF4hAyd+ IFxwYXJccGFyIEFwcHJvcH MyGTCoeLaumxYdK9RieeYc uS5rxLYcgeKmNB2xWO0fW5 Z3bOFzIGPrjwIip7maXZmv dmUgYmVlbiByZXZpZXdlZC Ijn7NjIQxbOFM8UXiwznXp bmNsdWRpbmcgSCZFLCBTcG RohZCfIWS7VFzswsZmjiVf FM0ncV5ygHyxxK3hoVXyuI E0sffdKZQsYKZawMoxKXMj EO2avWzhlI3iZvVaMnAzRE ukEU9sFCLpS2ybvDJaIMCg KAKhG4jmCqAyoK0ctSgbGP xjZjJcZnMyMFxwYXJccGFy XHBsYWluXGYxXGZzMjBcbG FuZzEwMzNcaGljaFxmMVxk GlCuQISiQDwcY2uwBwIxM4 GpZROtAbLwjMLzD8hxNBie QKG6ZJElTT4roZNmGY74cD Zmf7kcEFgunNggoc2gM74h gCXeMQawwOujNVQrz76sc3 FaWCRdeoEqap0qYFUbkgC9 yX0iGJHqaHoaVOEurOFiGX Ipj6CwRDenxMKsfzGiHCvr GUKiOPMwvNEehoY6yyXbdq EszkAxLVXhbWktPEDdu1Xe NDFkCVzty8Mbxo4reINpTC FmvbYIuRuexOAhdM9qI6Kh XYUtVGFarr3eBAXxwK0dAQ vpc2QtientFHEvEABeTOVx suRgtz6zBJPpwKBICY7POQ fceNEcp8LjdrWgK0eCKVO4 NUQwNjYwMjgxKSBleGNlcH FrAKYdvd87WXFylZ7niLxa HDLmiE0ldT2wkWriwW6cGn UvRxWsBEuwUN4vXFNiX9dx tFTjZTEgKBTwK4cuHnUabY 9jaFxmMVxjZjJcZnMyMFxw YXJ9fQ== Embedded Images (test code = [id number]) [facility] [id number] 19:23:05* Test Item Value Reference Range Interpretation Comme nts Case Report (test code = [id number]) Surgical Pathology ?Case: [id number] ? Authorizing Provider: ?Dominic Keita MD ? [...] HPylori ? Final Diagnosis (test code = [id number]) o7cjfLYyTMJvc4xrQKFtfG FuZzEwMzNcZnRuYmpcdWMx MLeqmkBrXPrfeRfxLVR2LJ FoXC5xjLrpwEf3oKgsKZLk rgI5cREdGQvcr7ycRHN5e5 tdqtjjLGJcPMzzUa4viSIc pVtoVzMaQALuWFt7wI69RF OceT7wsYVoUUp7DHSabWVm pjMcSoPhEFFlqFGxaCU8RW LzLA9weujrCYtqXVaqRFYq pcO6WMGehLMoW8IzLIOnYG 5ctgwsVMA2PInfEEWhJJG4 UtAgCCGmy4Ztofj3PmUxhP FyZFxwbGFpblxmczIwXHBh vnVJGbZQCD2CZYQNCHVMJ7 jEBABVRD0LWILGOdigqNHq KQBpLVJwELDXYP8IVVZmH2 eSVrMwHF5IVIXeGMZfhMVo ABLrldZAUxNAGU8RFZ9SOE wgQklPUFNZOlxwYXIgICAg KUDqGQfYA3QQPVQcQTBSX9 ZSXXeRQPelPb3iZLSSYH9S L5vLV7TSBNRXPZ7ZDFdkWL PwCCSrIZTdUT5OMNojFVAC KF5SFDFJOLUPDOrWFJHWXQ CAERqSFGWZP1UPNEnWJMCj xsxzLNNqFc7vK9VFYAJFZT wgQklPUFNZOlxwYXIgICAg KFAjQIHWW8TSAbGBKA8WR7 7MNBCQFGXPWU5ALOAKWKkU XX7QDWWWUKAVBPHBX4GteR FyICAgICAgLSBOTyBFVklE MT2PQVGBItTFQFhRAACoIY lTRUFTRVxwYXIgICAgICAt MB3KUNxpYRXQFB7VVIMVQs dBTklTTVMgSURFTlRJRklF JVYSXRRPNW4WHt6NMPEMQw xwYXJccGFyfXtccnRmMVxz k2PpA1XnBzXcPHjaglPrUJ ZqKtqriyxjCOPePXJ7hxCq GNHeMRbvRRDbEYdkKx5gyE HzfXyoMsAaIFGyc5uzktTJ DHxzYuQeN248AOEbNWrtj6 siw9SnNRSbhDDfv7A2VKTE rlndcCc0v4grJyTlJoT9jG IaFPbeR6cjyeBivZPyH7Pg oEOlnPl8lDqtG00re7G4Uy meF2kpELGtMUOgO6VkLR4q ITOkYva0OBX6NWX0PVPeDH XbM8WjGD7bCRNusOBwHMi3 n6zesZfdPVLhSWA1q4mcUI tppxF6ET0vsg4icKt7i4tg czEgRGVmYXVsdCBQYXJhZ3 CerTtgQa4xhSx1nAopGyzp ORI8Nhu7RY8rfw76dwx0uA anPHSpktbwRtL4ZRwhLRGv fxoaWEn6JOrqGYFrlYN5XK CriAVlO7EaOWWlAW1hhqc1 QBG7HOmnURVoAsW4QDFvxX ClSJRmzWufFRstt731YQA3 IjVlJO9gO8Roi1H7xQ9qvX StEZPgkCFoTkJzHITbsq4o vQWdRNscy1BdWNP5hsV2zQ EmeGApUYFzXE96Vnrey2Bw WfilJBB7FXBiawNtp5Syh2 teVcJyijRvG2bcR1OrTFBf MLCzGFHzAmVskxHxy2Aim9 VmvJHnyYe8x6zxJWUaPDBn sRhxg6cuAOK4EZAsS6P2oT Vou6dgPPzyCXJdrHA6qqL8 NTKdxVLeC2YydS2oIDDkRJ 2dnfl8s1hbBLP5SZfhHLCr CsT0ldF6YCGdjNVhOYQfmR nlVZmmy510CFY3YnLtONLn e4AgV7SpgZsxR82niFboK3 6jUJPrcBfacO1ysMvquH8s ZjBcZnMyNFxxbFxwbGFpbl xmMVxmczIwXGxhbmcxMDMz UMfzO0qoUiKjFSQrqAovUZ cox2GhZAZdWWDdCyjvmoYy XHBhciBJIGhhdmUgcGVyc2 9uYWxseSByZXZpZXdlZCBh zAqyy4NkW9vbRM8uE1KaaD CiapNpppUyFHldVZImz9j4 gZZwqJtpj2SnaLBcCT91qj NtUWIcOIL2LXOdf1uwDQ06 yfyvBfMtaR35yeEzxeNwQO Osd0cxS2ffeJCzs4Owx5Ve ymUfVDepm9EaYB4pdAQnth zteCS4FPFlvCQkmxKtejY2 fSmwXRHryK3gwK8xhKaluO 8oRdVnRbClDYjgKO0pREAc U4bdvKEjMXRcVHQfE3ywSk OyjR9hnFibIpjqtwL6PAQw cn19 Clinical Information (test code = [id number]) Shivani Schuler is a 47 year old female with IDA1. Gastric polyp x 6 r/o adenoma2.Duodenal Bx, r/o Celiac disease 3. Gastric Bx r/o HPylori Gross Description (test code = [id number]) b9brjFZvQWJoxQZDKVL7PZ XbGL8udDfkkNb3hGsrJVHm kqF9fDCwXUkab2zjRQA7e2 clqiZQNfanOMBoSW0eJFna PBSiZF5tGpXfGSDpKlNoXB BhcGVydzEyMjQwXHBhcGVy rEA8RNRvRH7ewhgyMJerJD znDWUbfrZ2UOYeoDMsV3Sv ZRHvMA3xqjqmSQA7ZHYZHb ppSb9kjQKmlPqnVzApWdNw YXJzZXQwXGZuaWwgQXJpYW e7gF0YRzoaIHH2HXNAKulm RvcstNqsy4ByvZQxXQHzRG xcaWQgNTEwMDAgXFxkYiBP PwRkVmZ2Xub5OWI0LyD3BG i4HAQAXALiCaqgQZC0CwK8 TXh0XKTxKP7yFIsfpLAbCY kwPbbsLLpwF356OUysFYMd I3WxD2BpAZmeLwEqYHciLC WmHMLcMNhkNDXxV8RRBRIw QMX3KzFsHTAdEQl5FBvdH3 PNBNQdNSSsYaQ8IQOnLtB5 UIs8MUZOOm3cLPbnOdZqWV v0LKA1TFp8VtGkKDJtDoGx AQYfQXGrXOfpwGQpKJ4adF yfJHIbIV1XHPIzDEajLMZj QoTcE9ZOH2pNVZ0rBNsztW JjaFxmczIyXHBhciANClxw LIGeFU3JNESsILsqFQv0mi AbBYIrHdWhVWLoS55hp4UD f8TyEU0JZSx6wmErgzkuqA 4vTLQgtcWjBHuDfKIasP5c ynVARMcqLFGlT9XwrzThYK ahZMDhww7dgWxcIMpaNfKn bGVkIHdpdGggdGhlIHBhdG ekmjOnX8E0onLbBZ3uNXDG MRLchX7jJGUkYYFdt4AgoV VddAdqR6FmgRNfBrSbn2m5 yHO2VQTrwsWnOYHctIBdKI Zdem6iYMiyKyHhN1I0YJUq QLVmk35uzXS5zaLsZnGtwY s9xXNlQWK9MO6fuDzkjjJs w6t0oF2tCMCff3K3CKWpp4 B0JEZzclXvlNRmwLBuASRf OX9pwkMcLM75SLWnXQlyYZ qtNHR6GLO1IXLypJXag2ea fykhEy9hWSffUZ2cEClrNZ 16HVRmWQfoWVXxF4SuU9U4 AWgwKYCzATHvqOXgqA8loz MirzPnfVf7GTRuZGI5zMEz uVifRLTcJsksoXZ4HLLsSm AwxpYkz7McjNx2jHTnZGfg HWCvkD7plV3qHWMmZLHksm XFRjxsLYNzEAsco3CtOEtk cGljWHNhMzAgDQpcZXBpY0 1iz5ILj7Hbl6lleGdqz0Cp zTYfZC5wbYXbFF3Kd6eiYX WprULzMOZ7DWcvc8umIEgs HFP7EESjDxUfGXYmLG9VKo OwWZsxPAc9RAmrAQl7WDh2 ND8TQqNwERVtHsg3DmQ4Xs GbAAf0VBzgEK0XTFO6YEDk VHJzJMrfYAQ8UEZfKIk4LA IgXFxzcyAzIFxcZmwgXFxu H84eqSDeDQepQeZuCJyhiD prUGWgPYC1TD9CBGSbYuSy K0DNI0oSTL2yJhhtvlZcAS OpobAPBploDWKaGO3QDSDx UShzPLu9waDlIGBbCcYjLL BeD42gf5CBh6PaTV8AREj9 ovNtlnyymY4eYVQrrnMly9 IzMFxlcGljWHNiMzAgDQpT wTSlhI6kmbGVDXjxFBAiX5 NeuvEqKAyfLWWvjx1fmWjk IGxhYmVsbGVkIHdpdGggdG izKWKzxQmhigQjU3D2pqLx LR5cHQXBLNJxtV4hRRGzNH DlSIFnAYHcnK4aQVO9g9Iw xgZrHCLJLSMpgOboLS80zN BjZWxpYWMgZGlzZWFzZSBh ynWlczHct01nqlPaa8JzZO 4ugYeaCMfTQXrmAyHhEA5v YBLkhwRsm9HcCF3dIOOyuS AeHACywhuemBTkJAk2rWXo UTTiXaJfjHlki5OyDGDsZT puJV50dqTvIB4yEVfvKW4y CNbeZY8pTTJeZYOmEFVqOq PvvXDcUfXgyQCwYgPdN19p EjPGqOIfo3SzD2psGP5beV GqCjetqFBbSWLwrAbep1Wr aZFqTKDgc2StiDEaERpqUO 8aXLY8Sj2aqMXxRUSarcV6 o4HyNGnpPEJhXoucIVEuUA rmm8NyAASsaCVWe6PbLF1C XHBhciANClxzYTMwXGVwaW RMh7PuZUDKLjwddCquXeUv rYHmNbP0ADGumVTtHQW9DI 4obXjlYEOcQJi5KFanQXYg T1KfT3ExMPqzZbYlUDtkSY OnGUVgNOhiMOLdL9VZKNSa WEO6MoGsECSiEBc3HCsaN1 ZEOPBmNOSzXfM2QNQ3ArD4 EKa3MYXGZn8qZJhnWpBdTU MxDlM3MCb2FrSzUSVaEqLb TLRzSRAdEFdkwGCyAH7wmR jgLNUmLFKgDTL6HKHeiWRX f8JmVCVoEGeuEqPmLHAOOE JCZA3HGsXLFJLnRnIepJIp YW5NFYPeklRfRFhctUjuxJ 4pvAGlT1hsBtZuNzohnIcb TmVzdERvYzEgDQpcbHRycG FyXGxpbjBccmluMFxzYjMw RBTixGTKo6CuZYLBAgVfGT NpbWVuIEMgaXMgcmVjZWl2 YVXfdT8sIq3dgZHigJ3itR HyWAlmLBEsy2g1uOR3lTPj lAX9iGFclFdbLvJtYC6dgP RyYYARUB79cOTjniFyNQNl gA8hLTTiZQQpRUG8rerfYC OFWFJ7pIFhp2O1FNmpKYB6 cA8tfTaoKlZzW0C6KQAcUH Cyx99aoBA4gcInKzYmHXSi sy7coR3yJNpsvaEleOjrio Ilf5B5HRNvn8B0NMQmmeXu aXBhgPFjBYMcQzE8ZCFbAw N4URJeOCCuiDWxZQHrUH4m VGhlIHNwZWNpbWVuIGlzIG VueNUhfaFmDDMfzv58F4zw LPBdjJ2xr6oiFdKlGYAwZC LnyGNrmIB7XUXemK8tbU62 wpGxezKIGF8puLLnKY5UYT NiMFxlcGljWHNiMCANClxw ZQAkLMdyh8OiMXyctTxfKD EyDgFdYQcGrMieSQPBF4lu uTDxYYehPQJSMSuWC3DGSR 3HVGWckFVHSIT9EV9wBDsv HTPyL2XhG0VemmU4y9udhM zbr1RtcBNhPP9vpEWlVB5N XHBhcmQgDQp9 Disclaimer (test code = [id number]) r1punGBaOOHit4ozMXKtwO FuZzEwMzNcZnRuYmpcdWMx AXbodnOpZCnyp8XfN4ZbTe AwMFxhbnNpXGRlZmxhbmcx CXFeTYE7maOiFGRgGEijWF WlCQooGw0trPDasNseWbSn IUKcy0hgfmCPZOucAbQnE4 70JDJvNSwyg4hgo1OyMAEa nRHbp3M1ZPYSiyvcmYt8zP aoM37oo0M3OgekT4ctOUEo FOPcP7DmST6mDBQvTtd0NG H8BDM1YWYwYDEjH0HkRP5m TUMxhOCaSHi6s9zthUibCB BnULP8k6dkSNuyzgNvHX2u ps6ihRs3z3pnjkGnKKPeVA MvoOGAPIXpN2TssYrwBw6g tRd0qUvvQfbrHQG6Mhv7IR 6zbu46cju6oTfnKHJlthzv LkZ1OHebLWXnjsjeTHz8BC kmAAEfiGH6STXrfIOtP8Ln KPQwQJ3faos5DBD2TUnuVD JdKkX3VDKenCOzOHBvaKhl UOocf433EPZ6AcJcMY7tE4 But2T9sJ1lwLTgKAZrbNLo CaMsYYLaiy8nfKYrRGmas2 SnRYY0ihW5pHPokXOyUBSk RH61Ehezt8McYspnu3JfQ2 8qgQO6CTlqa1saBE2gXrH5 nxItUZitv0urdV9yCgL3SJ tqDE5oSJ1zHCAqbF6wunjd XHBnYnJkcmhlYWRccGdicm CgOn4kyBblRFT5WNjzY7ts dB8jJfB9XYftQ9zxlG0nLP g2NCjciOW9FAJumC7dKJ1g fgufn3btOLtaECebPPLpit V9xxN8PDFjjOPfM8PkcK2d KXSoWC3pnaiex1naWFJ8VG pzSOKlZVZ5EiLzSXCix9Wn kjc5ZjIhh3IaeUWxIDqjW0 2gq493EKKwkiAvL0pnzFJy zhqypEDueyhhIHkgbwV1SN XgfiZpz9SzMIUvGVL2CBwe WZkttORcYZIxtRtxn0fkQ4 RscGFyXHBsYWluXGYxXGZz MjBcbGFuZzEwMzNcaGljaF ieIRomFeSuZCKdCQqmX7wf EbIoU7MzJMIcDrGnqFLfI7 ggVGhpcyByZXBvcnQgbWF5 EUlbS7l5BCHxdjBqnWv3pl BxXhOwQRKdJMY4BKnogBGq MKYno1QkjxidsQKuSa1vwM HnFSHxtT2eFHShUIKyANxk PQ7esLs2HROLaCCrxYXsOs ERKWBoCW86haIiGZZAewmr s5T2HYzuCCTgc5PsvZApN4 wyi2XgKGDax79jBB5ec1N3 r3nyJEZ4FG7pb1VlKISgwM MljNPtNVRjx1Jtikmdo8Bg AFIrcyJnr9BmFPWnizBsgN AkOGGtrtXeof1blwHuXRNa GPVrP3TbghilgPxajjHhWP Jeae9yigAaPAD4MSFPTNSn ZVWrt3ZmxR6swYNRJBX5pC Afnv5mrgIBkVIiGCEstv72 AFVbMJ9gG2mrMFJwPWLyqa AspHCqc8FzASChjJP8eETo OY8NYzLMo02xQDDvPIYOei HbRRVxrHizmWM5qaB8vE7t IChGREEpLlx+IFRoZSBGRE ZlUD6dvqXth2RqueFnxYvs EEEehPUfy7EobMWfq5PumT ftx6WuuKDdzPDbWC6fZBWk clxwYXIgVVRNQiBMYWJvcm Y2l1YwRSBfGSHrEEW5rLmf tmn4EEJyvS6nEHQmM2mcst cyKZuzLDChi0KauK6ylDFJ zYJtt0XmsINanQUWqTLaDZ 7espAiJWfOVIpEBRX9txFq EYMow5VuJXwjR1rhP63sgQ avoPk0fOW7OYY9qI0dFiq+ IFxwYXJccGFyIEFwcHJvcH JpQNHxnUrzjjPwV8OsudJj eC4ipMCvjcTqKR2xUM0sP2 Y6vOGhJTUxvzAzl9byXWbt dmUgYmVlbiByZXZpZXdlZC Hld4ZwEVlcINI2MXqjzgFb bmNsdWRpbmcgSCZFLCBTcG PxvTDyYIJ6FSjfwmVfljIn PP2seP9vtIrotZ9azCNqyO I0myryVSKvESAjkYqhIVBc YN3egWxqhI6gGzCeDyImBO jqUB5eJVWdW4mkoUTtXSIk AJPzT4yiIyReqR5twJkzNV xjZjJcZnMyMFxwYXJccGFy XHBsYWluXGYxXGZzMjBcbG FuZzEwMzNcaGljaFxmMVxk TgBeSPLpPNauK3ywSvZqT7 CoETHcWpNvxIZgH5aiBEwy JQT2XYSrUC4wsFWcLB14tR Ikv1lmBKiesEgjll9qH93k aCVlSEtmjRkeMJGtk61sg7 IlDMDgcjIhgz1jYWAcaoM3 kV5zQUTxfOphQYQbrESuKY Dqa4FbPGzohGHaurQoSSdh ITXpQIVqmUBfqlA3mhXvoe EtxpQiSMKjlAonISIyy8Mt EMUdFFdoz3Boev4ppPDyRM JnxtSIqAaiqMLdmE0xT4Hg CNCiUTCtlc9yFPGudK0xXR lun8IkazztMYHuUKDdZJNq ixQqok9hUTLiwMATLS9HRT brfZBsq1AvgzCjE5wHMDM3 NUQwNjYwMjgxKSBleGNlcH DcJTEckk04TSJecO9unSsg OJKmfK6neH1bnIxetB2lBe MmCyUaNUgfGM9mWMZkS5oy wFRnPOIcNYJoZ0ubGuTcbV 9jaFxmMVxjZjJcZnMyMFxw YXJ9fQ== Embedded Images (test code = [id number]) [facility] [id number] 19:23:05* Test Item Value Reference Range Interpretation Comme nts Case Report (test code = [id number]) Surgical Pathology ?Case: [id number] ? Authorizing Provider: ?Dominic Keita MD ? [...] HPylori ? Final Diagnosis (test code = [id number]) t9lqcXRcNHJoc2wxFVCxaZ FuZzEwMzNcZnRuYmpcdWMx VPqfwqWtXAzkzNxoVCH1BR YhYH5bjFovsUi2vQxtIFCr iaF0nBKlONauo8woTQP6y4 vtpkuuHAOwMYanId7yaLRg xPkzRnAjUIJuFGz4dM86BX YpmI4smHKdSUv2OMOrvJIq smEjTmBeUMDofSMolIY7YI BeKH7riuncGEuvPEtiZFOn nfC4CEUegSWfE6KeCRWiLP 0zcthkGXW1HRdkOJBjUBB3 ExFxIBHpb2Ypwxs8QnNmaU FyZFxwbGFpblxmczIwXHBh kkMXMzUFAY5QCDUHZJSPH4 pJQPNLYZ9XQFPCEkldyIQn MUAdLWOnXUERIP0KSCDiC5 kBEiRyOH2NMIVdCDEajXHw VPWhikBEInKRIN1MOH7TPY wgQklPUFNZOlxwYXIgICAg ZQFyWUuKN2PPCNZeUGVRO6 ZRYIgNWOxnKe8jMRLSZI4D J7qFX6SDLGURYL0UREksIK MlZPQmIAJgAC5DMAnrOERV SI3WHSMNVHHSODuLCHOZNN TBSFuCOOEYL9TFFReIOHWp czffXIQvJl8bC7MYIRHKFU wgQklPUFNZOlxwYXIgICAg FZNuWOINS7HUCwHTOS8TD6 2QGRDRLMREFB8ZMQUJWQqZ EU3UXQPIBWUUSYZYJ2QmoY FyICAgICAgLSBOTyBFVklE CW0IYDLAQiTVBMuPHFQfYP lTRUFTRVxwYXIgICAgICAt RH3XCYadKPISPT8XXEFILk dBTklTTVMgSURFTlRJRklF ROBQYLDCYM8SIo0EIASKVg xwYXJccGFyfXtccnRmMVxz l8GbI2PjXfTeWEqspxKiIY VdYvjcbqfsBKSbBSI4siBj PCSaTTvvWBXqPOxvBs1acM MqzSztTbWrTPQuv2dsxePX DLcgWzTpK624PDTzPSiob0 nhh0KsITLxbJMls3N3RHAJ bbtdkWk0k7xoXoEeSrB1bN XuFWxgR0oolpWmsCHfP9Gl cGIbnUs2hBuyS06qg7U8Mw djM7ynWIHtNWHxC4UdZI3b UZRyHag5CRY8UAA7FBVhXQ XlT5EwBX4dHNRgwYRhOLi5 y4wslXgnLKMjZGN5q4kbSR mqyhO2KR1fus5ebWp3s8ov czEgRGVmYXVsdCBQYXJhZ3 DzgEsmWz9fsAs3bHcwXelh UQO2Abj7LH5mvp68pwc6wK epHAOodqevCsN2TNwtJAXa idrtXWg2LZujWBEwlZE4ZI EzxVHeM6XpMAYwYA9xjfu3 PDZ7BLesJPFfHdV4OOXanA SzGYZktKpfMMwbr561QDJ8 CfYaRR8iB1Ydb1R4iH2zzF HnCNUaqMExAhWzMHFgbc4b wLIyZAbdy1AvJBR4ujR7lA DzdHLtZVNdTZ84Pefyd8Qq WppbIWU3LKFuvvAkn7Kxg5 ukXqKfxbQyO7jfW5NpDRAs FTJvECMzMkStltFcd9Bqm8 LpwLFlzMz9a2dyHNOnRQDe lImnk2xaFLC2PTFvK6F9rK Cks4dcDXqdLLCbxZW1gsN0 AIKnkRBbP9FepC2gUWQwDL 3blic4q8laVZK9VHfbAEXz JkY4ifF5BJDryCGyCEWooQ hcXTvix625LRE8HcNeQBQx d6QeO4FydTtqA95xuTywL1 2dXOBrzYbahA8qqQyvkL7r ZjBcZnMyNFxxbFxwbGFpbl xmMVxmczIwXGxhbmcxMDMz UAntL4kgUqTvWUGcjJcvIB rbk8YzVZYyUKExJardxaCz XHBhciBJIGhhdmUgcGVyc2 9uYWxseSByZXZpZXdlZCBh yKbhy3PbM5buGR1qF9VomL WhhmRadwVpEYipIKJay9i5 kTRhaEupj9EtyUDdYU32le VbVCVgDQO1KMJdb2rrXP77 bieuYiEfbW79lmIsdcTeNH Qjo5wwQ8ampQIif3Gqf0Xj nkSuMMwbz9PaTH3vhHCloy yxuWJ3WNBbuNOecsVmtlZ1 wApqDWZtpM9vcN9cwLmogV 3aXgLoDnFkCTciSH6zKMQc N2mnwGRyUIKuDCRkZ0bsSf OpyL4afBohKeltvwS4ZHEu cn19 Clinical Information (test code = [id number]) Shivani Schuler is a 47 year old female with IDA1. Gastric polyp x 6 r/o adenoma2.Duodenal Bx, r/o Celiac disease 3. Gastric Bx r/o HPylori Gross Description (test code = [id number]) d7igcQTwSKPcsBHEWUP7TI FgIY2ueXopbAp9tSvrYGHu yzT0yYKcDHprt0peAEZ5i0 tyulBNQphlKHVzMC2oPZzo CXOwWG3sRyRoFBAuNlWhBQ BhcGVydzEyMjQwXHBhcGVy hUB6WUCtEC5ngqwsZQdoZU erLTTvjhN7GRQyyGOoU5Ad TWNwKL7golgtXZQ7ARCEOf jqHp0geDCwrBfuXvOwZpIr YXJzZXQwXGZuaWwgQXJpYW y2lA9LMkppTKO7AHPKHdlf GtbivTnhu0CemBEyEHLbQE xcaWQgNTEwMDAgXFxkYiBP RmNiPoX6Oea7UJL2FlV5UK t7FIEYPUBsTbfxSGX4PbM3 WWg0EZCcAH8bGVewxVXtEV qzOpdbRKebG431KYvtIDNc E9WeJ3AjPSrzFtCjQClzDP BqLCNtMEcaSWKfT7RDGNYm FFP5DaWgOMMcMWl6ZYxiG9 QOAYJdRFApBmV7CVDxSkZ7 SVl3WCZWNk3iZCovSdIhEY g6YHE8OEn7GqDiZJRdNiAd QYZcPSChQDtsiYWcUX8hpM ekYEGvZJ8HIHNgTXucWBMn UuEcX1MSE0mOZC2gEMmisS JjaFxmczIyXHBhciANClxw UOAfXA9QJMKxXCxcMAv7kw QjHUTgAeXwESZhW73fr9GH g5AhNR6GQCa7mrQihqrjrK 7hRVAodbEiOJiMcZYziF7p geGHBXmxKUStD6ErrmLjKT waZDExwo5uyTuoZOcjBwPm bGVkIHdpdGggdGhlIHBhdG penxNnT4U5mwJnYV4rOWML PEKwmH3hMZBnDRVsn4SxsT RuoOqyE1VgjCWpPxWau1v4 tVX4KLMreyMzLKCljYNhOQ Ouuv6cAKrxJxRuY2K7TCVm USLdt36lvVR8hcHePeOgmF a1hDOeBGY7DG1huWaqhpVb y1v7oE2mYXWlo5H3CVPts5 H1PPAideXzgYOrbTSsCSAx BH7eobSiHH07GPPsCSnyPS evTJY1GXO7CJQxiMPsf6gh mnkcPk3yDPvcJT4bROimON 65WLQxTHkhBJTyN9NpA2Q5 CXdrQCPbUMKsuISomX8hxo HxjmObwMc6QTKoBTV3zOYr uJjnKOEsAmvuiZX0QJLkBb UedjKaw0XjbKv1mSZtPSiy CHUrmH8ziO8aVWOrTVFbxc QMFwcuEQTfKKigd8UjPNyb cGljWHNhMzAgDQpcZXBpY0 9dd1PIf4Idz5kioGsgw9Ok cUQpFS7gsXRfZH7In1nbZF DtqAVcMAV1GZlxf2cvSEmd HQN6PIYaKgQzBYNyDR7KJp IaCYxfVMn4MIxfXRl8JGb0 EQ1HYsMwJGJxNvf2WuV5Vl AjAEf5DRuhOM5NVAX7OKBs EQYvBIghZVU3RQGnAAs4OX IgXFxzcyAzIFxcZmwgXFxu R04rtKGbLFamZmAdZZuggU swGXCySCP1LC9NYOYaYhHj T3YWX0gFMY8lDqyffqNoCZ UxqnZRDzwjHKBsQO1XFAGb DDuqGBd9siUmNVElAoAxEQ FvN43tn2LEq3YyWS6YTEn5 rgKacruyxN3gPJHehoRnm4 IzMFxlcGljWHNiMzAgDQpT rLTewG7bdyRZAOklWGPyX0 HavfQtHKoiPFVbzo4ueMoj IGxhYmVsbGVkIHdpdGggdG qdZESzwBkofuJeS5G8rbVy XE1qSROWRUIwhH3dIERfVK HvVMTcJRSgpN0lNBN4h4Ri zuPnTCQGUXZtbZkeJY43fT BjZWxpYWMgZGlzZWFzZSBh ndMydcVoq21mwfDlc2YxKE 2bxHyfLCmFJXwuYdGjDR2m HYVztkWwt9RkIF0wZVArpO IeJISvyacamOKgUYb0pHZd XSDsJfJvmTsvj6OmGMKoKX dvWU17cvXaZN7nSEdvFE0c ZXaiWL7rNLJsEPZxILQdBc GbyCGdDmUcjCAkPvPqK12p VbHZbSIxq0PjF9kgTE1zrM DhDkpmaFFgLOBnvSvpz3Ri lWEoITImx7NxaJZhCOdoLT 1eGGH1Pi0vrBVzUWJfkyM5 q9JcGAxtZBOiTihpFPCiOL eiw5QzZDNyiCJTc9IeFD8P XHBhciANClxzYTMwXGVwaW HFb9HhDSPEWrmztGjbXdUe mINdVpT0CQSwsUOxGEY4PW 9nyZykPWGrDYi1WKfmJKGb Z2XnU4HhSFufQnWwNCuuVA WxYRTsQOjqAOXnV0QMQHXj HGF7ExJiGUIuDMe3VCqyG1 MOHBEuOIHvPsV7RSD9BdC4 HKb7AFYDIo2uGEtlXuDqCI WoPyC5UTc7EdRfEVWrQzWg HGIaSICbMFtpvAXwHG7vfT rrABQtMEFtUVP0ICZmmXBF t7MkVMYsKRasAlCxUOANNR MWQM3WUtYJOMOqYrXynINm FK4VDFUxzrKkQNiycEwmdF 0umGLdW7zzAeDuNogihUtx TmVzdERvYzEgDQpcbHRycG FyXGxpbjBccmluMFxzYjMw ZFJwyURDr5VkQNGDWmKqAC NpbWVuIEMgaXMgcmVjZWl2 FQHihK2wUj1atSYhiV5vaQ KaREudRLFdn8x6lRI7cHKo hVG9fEEmgHivXuBxMH8xxM JoZFWVMW66rXYprxQpTLTc rU4aZHNtVRFsXWZ5mnsyAM PJXNU5jOVzt7H4YVvmMMG5 gJ2xdNziSyGzU0X4IFBuJF Dtl60qqPB0uhKrKhVoIRVp ts3wkC6sEFitgeXfwWbqir Ooa1H7UDIgd1O2CROgivAl tVEnkTNfOCLjMiR9SOBcDy H7DNGqXFWneABzPLHaVX2u VGhlIHNwZWNpbWVuIGlzIG QmtHTdpdZhKUDqgi26K8bw WVYczT8dp4sbCgFyZXGfBL TnnXHnhTF1CDWoxK2laI02 rnYpghBGBS9wdINxWW5HOB NiMFxlcGljWHNiMCANClxw CBDfHUexq2ZkHRfgjGszNO KnPgHkAXlTgHduKZDIV5lu cBRhAUcxEFQHVFdNA7RNUS 1ELMLjxZMQCUB8HL4xJTxx JFIbA4FdW8QqkbV7g6tjzD biw3XuaLFsFD4hqZSnXB4C XHBhcmQgDQp9 Disclaimer (test code = [id number]) k5phhQXyOJCpf6anDVWrvB FuZzEwMzNcZnRuYmpcdWMx PHghdrFrNBsjm4EpH4VnXo AwMFxhbnNpXGRlZmxhbmcx HXYyUFD7auIiNOEuTAmhXI BlJHctKo3hbYSfiKgcMbYu DWXfe1zfxoPLWIbaZuUbX6 41VUBvADjmj1tbq0ItDAYa mAEwd8U4ZIATpofojKs2fN viO86ty4S3JhmkU0xmJRGi HUGqM6NgGK6xBRAwQml3NS B7NWE9GNMfBHKbP9RdUJ0t BPXbwDXdYFt8r4qcqHsdDQ YlAPY8b0qmZVvlpqGgQW5k bp5cbIg0m4pxznIjZVIhOS WzoPWIHFIjT6AcvBxuXc7g pLt2qIhqVhfvKBB7Pgo1EQ 1qpk90wid3wHngXMJxxvlg VxP0VYrbUKUzbsmtRBn3NG ieYCDhyKU4GMBqvFCtG2Vr KFFhTN8nmhv9CNK9NTgqTI LcOfP5EHObaDFsDQHbwWpt MIohw249BUR5YjAiZQ5kO2 Eay3D6bR3zhYHyATKvyKVu TyBpTIOevq0ltTDmFYzaa0 HpYYJ8axL7pCWurBAnQAEq YV16Yipjw7XeUjmzp9XbH9 0mnQF1CNbju0wyCM9wRhW8 mbElENnqr5bsoI8pRkV3IO paXA2jQV9kGUDlkO5hkajf XHBnYnJkcmhlYWRccGdicm LcGk3uqPdzXRI2DGwcH0es sC0dRnT5MGmkN6cleB6rDA r8REohbIK9UVKclG4jGR5g ycqim9rnRZgkIMjxRZKmoi P6wtR3ZPUspFPxI5TbqB4z HLCuYG5ukbvur2ccINP1RB waKMVzMWZ9BfLvTAIzg5Gb pxe8ZjAzy4OmjSIvDQsiT3 4yn543UHOwccDlP9dbeMEq alaucOBdqiygLOuexfM5QX MsngKle7FjFLVsGEE6DRtb ROvxbCIxVZCskLrjn7yeH8 RscGFyXHBsYWluXGYxXGZz MjBcbGFuZzEwMzNcaGljaF oaNLosEgUlDJBxHFajE7ub JfGzX5XsCGCiIuMszWQvJ5 ggVGhpcyByZXBvcnQgbWF5 DCoxH1y5QMKhlrYktHh1ol WzSgNdSRQfSDZ3FSkyaORe KCRwb2LwiuaosNFkPp2zuI RqUREgrE8eXILkBEQzPJgf YL4dfTc5MMVVnWXscFOhPy HGRETwPH85rrUjVOOEzvzn a0S5ASdpRNHgm9MrnDVdJ8 lja6OdJTPmv73eYY0oy6Q5 z6clGBP0CP7ab3YlBBHukC PbtWSiMJXyb2Qdwfsdk3Ut HLWjbpAjm8XuIISzltEhcW NlFAWudlQmcp9oplUlXNMy LZDiZ6DlkboomLbhzeOiLL Nysf1ptzHmAQP0TSYTSOLx NWEzg1WyrY2rfPHPSNV9pX Mazy1imoMOlOIoKUVzwd87 KFRoUZ3mT1rsWAMqWGSiow JunVKtb8IxUKKtaTH0yHIq OJ7TLjWGs41pBNUqARTIce RlFTAymHvxiMA2siZ6aE6h IChGREEpLlx+IFRoZSBGRE BeOB0gunUmo8YecdHiaWdc KYPzqDVlq1ItmZPkj5UodQ jud9IipTKmyRJmAD2pKBLq clxwYXIgVVRNQiBMYWJvcm O4k4WoEDHxKFToUKU6rMrm okc9VHWcmB6lCHShL4cgpr ueYVavRVEea1KvfZ0ioUSS aRUto2DyvGFtqFCEaTRmLK 0lwpFuEZdDQKsYLUK1uhDr SKSyy1HyJEamO9kpX96czJ owwAg9oAP2LKL6zV0nVuz+ IFxwYXJccGFyIEFwcHJvcH OoRUJnwNvffzXjH7BnhyVj lT0buPIrxhFnGW4jNM4uD9 T7mEAvILPktnPyn5etIBin dmUgYmVlbiByZXZpZXdlZC Upv7TcGDinDUQ7FIqttyIv bmNsdWRpbmcgSCZFLCBTcG ZyzLAaCOW1YVqixuDhvgPp IA0qkP8vwNmisE8rsOKyyW X9sqicOJLhOCUujCqeZHQk NU6txEqysN0bYyXhWjHiDL pgTY2vWYYcF0jkdBJrPJFs SNWjD4owRhXnnX2lxDuvOL xjZjJcZnMyMFxwYXJccGFy XHBsYWluXGYxXGZzMjBcbG FuZzEwMzNcaGljaFxmMVxk ErYfXIYjZPavP4bzIbTkX9 BfCFDfZzStdSFyM5htSTzt PIY1LCBpPM3phYUlTY49eO Zpu6fkXYcrkIfvsu6dF60s gAOkWQdrbOajYCKge17cy5 KzKRVbqgKecd5zMAJibmX8 wR9xHRCycVkuXIVwaLHnAJ Ibg2EuXIakzSOhgoNiYGni YAZzGPKgePMbcjV2tjClft ErdbUsOPJuzPgqJFRpr0Po JKCtBYycx1Xknl8erRViMT CbljBIqSjjxMFgiU1kC6Zq QTThTOZqkt7aFJUhkY7rPE ecd1AhmijoRBCxNRXgYCUp fyDynz1sBJVobYOMVQ1KFM mehQFiv7WnjzTmB5eQMMR4 NUQwNjYwMjgxKSBleGNlcH QsKJGhgl25TNPpjL9btHlx IBLjnL4pyL8vyHktiW8sXw WcOqWrNPwvUW6wNUGnZ3oj kLCkNGCsOAFzP5mjVdGxoB 9jaFxmMVxjZjJcZnMyMFxw YXJ9fQ== Embedded Images (test code = 1722838430) [facility]. METABOLIC PANEL ([id number])2022-11-03 17:25:32* Test Item Value Reference Range Interpretation Comme nts NA (test code = 1607362156) 139 mmol/L 135-145 K (test code = 9138744420) 4.2 mmol/L 3.5-5.0 CL (test code = 7886661491) 105 mmol/L 98-108 CO2 TOTAL (test code = 5868630907) 26 mmol/L 23-31 AGAP (test code = 8142039202) 8 2-16 BUN (test code = 2104275197) 9 mg/dL 7-23 GLUCOSE (test code = 9525462082) 93 mg/dL 70-110 CREATININE (test code = 2839541460) 0.60 mg/dL 0.50-1.04 TOTAL BILI (test code = 3346342355) 0.2 mg/dL 0.1-1.1 CALCIUM (test code = 9408919536) 9.2 mg/dL 8.6-10.6 T PROTEIN (test code = 1663341862) 7.0 g/dL 6.3-8.2 ALBUMIN (test code = 4770324956) 4.2 g/dL 3.5-5.0 ALK PHOS (test code = 9096864348) 118 U/L 34-122 ALTv (test code = 1742-6) 34 U/L 5-35 AST(SGOT) (test code = 8518264768) 34 U/L 13-40 eGFR (test code = 0291834229) 108.1 mL/min/1.73m2 ZAINAB (test code = ZAINAB) [...] or abnormalities in imaging tests). [facility]. METABOLIC PANEL ([id number])2022-11-03 17:25:32* Test Item Value Reference Range Interpretation Comme nts NA (test code = 0316348833) 139 mmol/L 135-145 K (test code = 7296659125) 4.2 mmol/L 3.5-5.0 CL (test code = 9306008290) 105 mmol/L 98-108 CO2 TOTAL (test code = 3825247734) 26 mmol/L 23-31 AGAP (test code = 3579157196) 8 2-16 BUN (test code = 4809170838) 9 mg/dL 7-23 GLUCOSE (test code = 7391774851) 93 mg/dL 70-110 CREATININE (test code = 0252635215) 0.60 mg/dL 0.50-1.04 TOTAL BILI (test code = 4261580115) 0.2 mg/dL 0.1-1.1 CALCIUM (test code = 2621814228) 9.2 mg/dL 8.6-10.6 T PROTEIN (test code = 0570967890) 7.0 g/dL 6.3-8.2 ALBUMIN (test code = 8320275584) 4.2 g/dL 3.5-5.0 ALK PHOS (test code = 9312657943) 118 U/L 34-122 ALTv (test code = 1742-6) 34 U/L 5-35 AST(SGOT) (test code = 5443248981) 34 U/L 13-40 eGFR (test code = 9478045048) 108.1 mL/min/1.73m2 ZAINAB (test code = ZAINAB) [...] or abnormalities in imaging tests). [facility]. METABOLIC PANEL ([id number])2022-11-03 17:25:32* Test Item Value Reference Range Interpretation Comme nts NA (test code = 9722413704) 139 mmol/L 135-145 K (test code = 9367308347) 4.2 mmol/L 3.5-5.0 CL (test code = 8152386422) 105 mmol/L 98-108 CO2 TOTAL (test code = 2564556461) 26 mmol/L 23-31 AGAP (test code = 2248490529) 8 2-16 BUN (test code = 0138700970) 9 mg/dL 7-23 GLUCOSE (test code = 5427869858) 93 mg/dL 70-110 CREATININE (test code = 0979371594) 0.60 mg/dL 0.50-1.04 TOTAL BILI (test code = 2196002562) 0.2 mg/dL 0.1-1.1 CALCIUM (test code = 1234999636) 9.2 mg/dL 8.6-10.6 T PROTEIN (test code = 3939149387) 7.0 g/dL 6.3-8.2 ALBUMIN (test code = 2019381629) 4.2 g/dL 3.5-5.0 ALK PHOS (test code = 8917185689) 118 U/L 34-122 ALTv (test code = 1742-6) 34 U/L 5-35 AST(SGOT) (test code = 4592317508) 34 U/L 13-40 eGFR (test code = 4076639605) 108.1 mL/min/1.73m2 ZAINAB (test code = ZAINAB) [...] or abnormalities in imaging tests). [facility]. METABOLIC PANEL ([id number])2022-11-03 17:25:32* Test Item Value Reference Range Interpretation Comme nts NA (test code = 6335134432) 139 mmol/L 135-145 K (test code = 0522075709) 4.2 mmol/L 3.5-5.0 CL (test code = 2717877023) 105 mmol/L 98-108 CO2 TOTAL (test code = 5020297428) 26 mmol/L 23-31 AGAP (test code = 6325389660) 8 2-16 BUN (test code = 1811194894) 9 mg/dL 7-23 GLUCOSE (test code = 9448350592) 93 mg/dL 70-110 CREATININE (test code = 8434952265) 0.60 mg/dL 0.50-1.04 TOTAL BILI (test code = 8086960642) 0.2 mg/dL 0.1-1.1 CALCIUM (test code = 6045610848) 9.2 mg/dL 8.6-10.6 T PROTEIN (test code = 3390724094) 7.0 g/dL 6.3-8.2 ALBUMIN (test code = 0205904789) 4.2 g/dL 3.5-5.0 ALK PHOS (test code = 2086435810) 118 U/L 34-122 ALTv (test code = 1742-6) 34 U/L 5-35 AST(SGOT) (test code = 0618841872) 34 U/L 13-40 eGFR (test code = 3334021483) 108.1 mL/min/1.73m2 ZAINAB (test code = ZAINAB) [...] or abnormalities in imaging tests). [facility]. METABOLIC PANEL ([id number])2022-11-03 17:25:32* Test Item Value Reference Range Interpretation Comme nts NA (test code = 5926742807) 139 mmol/L 135-145 K (test code = 8573201921) 4.2 mmol/L 3.5-5.0 CL (test code = 2036098183) 105 mmol/L 98-108 CO2 TOTAL (test code = 6960470031) 26 mmol/L 23-31 AGAP (test code = 3394359320) 8 2-16 BUN (test code = 6389273144) 9 mg/dL 7-23 GLUCOSE (test code = 1741083112) 93 mg/dL 70-110 CREATININE (test code = 2223305354) 0.60 mg/dL 0.50-1.04 TOTAL BILI (test code = 3713813720) 0.2 mg/dL 0.1-1.1 CALCIUM (test code = 2173744670) 9.2 mg/dL 8.6-10.6 T PROTEIN (test code = 5800935447) 7.0 g/dL 6.3-8.2 ALBUMIN (test code = 3904086399) 4.2 g/dL 3.5-5.0 ALK PHOS (test code = 5695996821) 118 U/L 34-122 ALTv (test code = 1742-6) 34 U/L 5-35 AST(SGOT) (test code = 1457720318) 34 U/L 13-40 eGFR (test code = 6565520859) 108.1 mL/min/1.73m2 ZAINAB (test code = ZAINAB) [...] or abnormalities in imaging tests). [facility]. METABOLIC PANEL ([id number])2022-11-03 17:25:32* Test Item Value Reference Range Interpretation Comme nts NA (test code = 0375548125) 139 mmol/L 135-145 K (test code = 2389610997) 4.2 mmol/L 3.5-5.0 CL (test code = 3919535501) 105 mmol/L 98-108 CO2 TOTAL (test code = 1790552521) 26 mmol/L 23-31 AGAP (test code = 8303785184) 8 2-16 BUN (test code = 1617119744) 9 mg/dL 7-23 GLUCOSE (test code = 3960136912) 93 mg/dL 70-110 CREATININE (test code = 1841084033) 0.60 mg/dL 0.50-1.04 TOTAL BILI (test code = 2663817824) 0.2 mg/dL 0.1-1.1 CALCIUM (test code = 7744826384) 9.2 mg/dL 8.6-10.6 T PROTEIN (test code = 2938110712) 7.0 g/dL 6.3-8.2 ALBUMIN (test code = 7980444436) 4.2 g/dL 3.5-5.0 ALK PHOS (test code = 3465828979) 118 U/L 34-122 ALTv (test code = 1742-6) 34 U/L 5-35 AST(SGOT) (test code = 6528210539) 34 U/L 13-40 eGFR (test code = 1670979501) 108.1 mL/min/1.73m2 ZAINAB (test code = ZAINAB) [...] or abnormalities in imaging tests). [facility] [facility]. METABOLIC PANEL ([id number])2022-11-03 17:25:32* Test Item Value Reference Range Interpretation Comme nts NA (test code = 5323174795) 139 mmol/L 135-145 K (test code = 6476774314) 4.2 mmol/L 3.5-5.0 CL (test code = 7662777860) 105 mmol/L 98-108 CO2 TOTAL (test code = 4524240033) 26 mmol/L 23-31 AGAP (test code = 1835276767) 8 2-16 BUN (test code = 1575616516) 9 mg/dL 7-23 GLUCOSE (test code = 1239570979) 93 mg/dL 70-110 CREATININE (test code = 3535730020) 0.60 mg/dL 0.50-1.04 TOTAL BILI (test code = 5500166898) 0.2 mg/dL 0.1-1.1 CALCIUM (test code = 6453160987) 9.2 mg/dL 8.6-10.6 T PROTEIN (test code = 2071430576) 7.0 g/dL 6.3-8.2 ALBUMIN (test code = 2070281267) 4.2 g/dL 3.5-5.0 ALK PHOS (test code = 8532095885) 118 U/L 34-122 ALTv (test code = 1742-6) 34 U/L 5-35 AST(SGOT) (test code = 6736419990) 34 U/L 13-40 eGFR (test code = 3506999709) 108.1 mL/min/1.73m2 ZAINAB (test code = ZAINAB) [...] or urine or abnormalities in imaging tests). [facility][id number][facility] 17:25:32* Test Item Value Reference Range Interpretation Comme nts NA (test code = 5035964327) 139 mmol/L 135-145 K (test code = 5128014080) 4.2 mmol/L 3.5-5.0 CL (test code = 8205931709) 105 mmol/L 98-108 CO2 TOTAL (test code = 4211927462) 26 mmol/L 23-31 AGAP (test code = 6155923898) 8 2-16 BUN (test code = 4234869296) 9 mg/dL 7-23 GLUCOSE (test code = 2501632796) 93 mg/dL 70-110 CREATININE (test code = 6933003054) 0.60 mg/dL 0.50-1.04 TOTAL BILI (test code = 2033065825) 0.2 mg/dL 0.1-1.1 CALCIUM (test code = 8633694261) 9.2 mg/dL 8.6-10.6 T PROTEIN (test code = 7290496700) 7.0 g/dL 6.3-8.2 ALBUMIN (test code = 6575749926) 4.2 g/dL 3.5-5.0 ALK PHOS (test code = 3090562409) 118 U/L 34-122 ALTv (test code = 1742-6) 34 U/L 5-35 AST(SGOT) (test code = 8789203599) 34 U/L 13-40 eGFR (test code = 7376490472) 108.1 mL/min/1.73m2 ZAINAB (test code = ZAINAB) [...] or abnormalities in imaging tests). [facility]. METABOLIC PANEL ([id number])2022-11-03 17:25:32* Test Item Value Reference Range Interpretation Comme nts NA (test code = 6346555371) 139 mmol/L 135-145 K (test code = 5809226004) 4.2 mmol/L 3.5-5.0 CL (test code = 7693076247) 105 mmol/L 98-108 CO2 TOTAL (test code = 7615489682) 26 mmol/L 23-31 AGAP (test code = 5167786488) 8 2-16 BUN (test code = 1771618776) 9 mg/dL 7-23 GLUCOSE (test code = 9209241616) 93 mg/dL 70-110 CREATININE (test code = 5523711514) 0.60 mg/dL 0.50-1.04 TOTAL BILI (test code = 9814510514) 0.2 mg/dL 0.1-1.1 CALCIUM (test code = 8681076894) 9.2 mg/dL 8.6-10.6 T PROTEIN (test code = 0365806471) 7.0 g/dL 6.3-8.2 ALBUMIN (test code = 9846457256) 4.2 g/dL 3.5-5.0 ALK PHOS (test code = 8398149333) 118 U/L 34-122 ALTv (test code = 1742-6) 34 U/L 5-35 AST(SGOT) (test code = 9498293770) 34 U/L 13-40 eGFR (test code = 93807-1) 108.1 mL/min/1.73m2 ZAINAB (test code = ZAINAB) [...] or abnormalities in imaging tests). [facility]. METABOLIC PANEL ([id number])2022-11-03 17:25:32* Test Item Value Reference Range Interpretation Comme nts NA (test code = 7137716658) 139 mmol/L 135-145 K (test code = 3230270705) 4.2 mmol/L 3.5-5.0 CL (test code = 5113305152) 105 mmol/L 98-108 CO2 TOTAL (test code = 6937087241) 26 mmol/L 23-31 AGAP (test code = 7717773455) 8 2-16 BUN (test code = 8409648223) 9 mg/dL 7-23 GLUCOSE (test code = 1163023465) 93 mg/dL 70-110 CREATININE (test code = 5716839085) 0.60 mg/dL 0.50-1.04 TOTAL BILI (test code = 8964012504) 0.2 mg/dL 0.1-1.1 CALCIUM (test code = 1794898325) 9.2 mg/dL 8.6-10.6 T PROTEIN (test code = 8407494405) 7.0 g/dL 6.3-8.2 ALBUMIN (test code = 3510669361) 4.2 g/dL 3.5-5.0 ALK PHOS (test code = 0536586109) 118 U/L 34-122 ALTv (test code = 1742-6) 34 U/L 5-35 AST(SGOT) (test code = 0597396672) 34 U/L 13-40 eGFR (test code = 93833-7) 108.1 mL/min/1.73m2 ZAINAB (test code = ZAINAB) [...] or abnormalities in imaging tests). [facility]. METABOLIC PANEL ([id number])2022-11-03 17:25:32* Test Item Value Reference Range Interpretation Comme nts NA (test code = 3141071333) 139 mmol/L 135-145 K (test code = 9195416126) 4.2 mmol/L 3.5-5.0 CL (test code = 2469096012) 105 mmol/L 98-108 CO2 TOTAL (test code = 7956121774) 26 mmol/L 23-31 AGAP (test code = 5806630352) 8 2-16 BUN (test code = 4423155201) 9 mg/dL 7-23 GLUCOSE (test code = 1252865619) 93 mg/dL 70-110 CREATININE (test code = 2016822241) 0.60 mg/dL 0.50-1.04 TOTAL BILI (test code = 1862864258) 0.2 mg/dL 0.1-1.1 CALCIUM (test code = 3549344459) 9.2 mg/dL 8.6-10.6 T PROTEIN (test code = 1603806940) 7.0 g/dL 6.3-8.2 ALBUMIN (test code = 7137588070) 4.2 g/dL 3.5-5.0 ALK PHOS (test code = 0773160952) 118 U/L 34-122 ALTv (test code = 1742-6) 34 U/L 5-35 AST(SGOT) (test code = 6457197231) 34 U/L 13-40 eGFR (test code = 69078-0) 108.1 mL/min/1.73m2 ZAINAB (test code = ZAINAB) [...] or abnormalities in imaging tests). [facility]. METABOLIC PANEL ([id number])2022-11-03 17:25:32* Test Item Value Reference Range Interpretation Comme nts NA (test code = 9464277359) 139 mmol/L 135-145 K (test code = 9927912528) 4.2 mmol/L 3.5-5.0 CL (test code = 7768076256) 105 mmol/L 98-108 CO2 TOTAL (test code = 0811889460) 26 mmol/L 23-31 AGAP (test code = 2354318855) 8 2-16 BUN (test code = 3829417113) 9 mg/dL 7-23 GLUCOSE (test code = 5351478807) 93 mg/dL 70-110 CREATININE (test code = 6545796239) 0.60 mg/dL 0.50-1.04 TOTAL BILI (test code = 1078546256) 0.2 mg/dL 0.1-1.1 CALCIUM (test code = 5171366386) 9.2 mg/dL 8.6-10.6 T PROTEIN (test code = 9253586670) 7.0 g/dL 6.3-8.2 ALBUMIN (test code = 1864605183) 4.2 g/dL 3.5-5.0 ALK PHOS (test code = 3224505204) 118 U/L 34-122 ALTv (test code = 1742-6) 34 U/L 5-35 AST(SGOT) (test code = 2291528437) 34 U/L 13-40 eGFR (test code = 26407-7) 108.1 mL/min/1.73m2 ZAINAB (test code = ZAINAB) [...] or abnormalities in imaging tests). [facility]. METABOLIC PANEL ([id number])2022-11-03 17:25:32* Test Item Value Reference Range Interpretation Comme nts NA (test code = 2733433658) 139 mmol/L 135-145 K (test code = 1166385777) 4.2 mmol/L 3.5-5.0 CL (test code = 3457172741) 105 mmol/L 98-108 CO2 TOTAL (test code = 3018693858) 26 mmol/L 23-31 AGAP (test code = 9732525194) 8 2-16 BUN (test code = 3759703073) 9 mg/dL 7-23 GLUCOSE (test code = 7678822187) 93 mg/dL 70-110 CREATININE (test code = 8358756692) 0.60 mg/dL 0.50-1.04 TOTAL BILI (test code = 6385330929) 0.2 mg/dL 0.1-1.1 CALCIUM (test code = 1737898390) 9.2 mg/dL 8.6-10.6 T PROTEIN (test code = 0487843220) 7.0 g/dL 6.3-8.2 ALBUMIN (test code = 5063480431) 4.2 g/dL 3.5-5.0 ALK PHOS (test code = 5032682023) 118 U/L 34-122 ALTv (test code = 1742-6) 34 U/L 5-35 AST(SGOT) (test code = 7347002705) 34 U/L 13-40 eGFR (test code = 82727-4) 108.1 mL/min/1.73m2 ZAINAB (test code = ZAINAB) [...] or urine or abnormalities in imaging tests). [facility] ([id number])20[facility]-03 17:25:32* Test Item Value Reference Range Interpretation Comme nts NA (test code = 1152826363) 139 mmol/L 135-145 K (test code = 4431550736) 4.2 mmol/L 3.5-5.0 CL (test code = 4475569401) 105 mmol/L 98-108 CO2 TOTAL (test code = 1460620275) 26 mmol/L 23-31 AGAP (test code = 5501962105) 8 2-16 BUN (test code = 7252251273) 9 mg/dL 7-23 GLUCOSE (test code = 8467022045) 93 mg/dL 70-110 CREATININE (test code = 1204204530) 0.60 mg/dL 0.50-1.04 TOTAL BILI (test code = 6961190707) 0.2 mg/dL 0.1-1.1 CALCIUM (test code = 7630119035) 9.2 mg/dL 8.6-10.6 T PROTEIN (test code = 0476432654) 7.0 g/dL 6.3-8.2 ALBUMIN (test code = 4714221516) 4.2 g/dL 3.5-5.0 ALK PHOS (test code = 5551718044) 118 U/L 34-122 ALTv (test code = 1742-6) 34 U/L 5-35 AST(SGOT) (test code = 8448173045) 34 U/L 13-40 eGFR (test code = 61811-4) 108.1 mL/min/1.73m2 ZAINAB (test code = ZAINAB) [...] or abnormalities in imaging tests). [facility]. METABOLIC PANEL ([id number])2022-11-03 17:25:32* Test Item Value Reference Range Interpretation Comme nts NA (test code = 5457575570) 139 mmol/L 135-145 K (test code = 1707556725) 4.2 mmol/L 3.5-5.0 CL (test code = 6173618115) 105 mmol/L 98-108 CO2 TOTAL (test code = 4872948399) 26 mmol/L 23-31 AGAP (test code = 0073544203) 8 2-16 BUN (test code = 7429887626) 9 mg/dL 7-23 GLUCOSE (test code = 8086505595) 93 mg/dL 70-110 CREATININE (test code = 2798202217) 0.60 mg/dL 0.50-1.04 TOTAL BILI (test code = 3707859285) 0.2 mg/dL 0.1-1.1 CALCIUM (test code = 9450639007) 9.2 mg/dL 8.6-10.6 T PROTEIN (test code = 8264002431) 7.0 g/dL 6.3-8.2 ALBUMIN (test code = 4867605909) 4.2 g/dL 3.5-5.0 ALK PHOS (test code = 6962050996) 118 U/L 34-122 ALTv (test code = 1742-6) 34 U/L 5-35 AST(SGOT) (test code = 9461910199) 34 U/L 13-40 eGFR (test code = 06977-5) 108.1 mL/min/1.73m2 ZAINAB (test code = ZAINAB) [...] or abnormalities in imaging tests). [facility]. METABOLIC PANEL ([id number])2022-11-03 17:25:32* Test Item Value Reference Range Interpretation Comme nts NA (test code = 9669731427) 139 mmol/L 135-145 K (test code = 5113393332) 4.2 mmol/L 3.5-5.0 CL (test code = 7186255254) 105 mmol/L 98-108 CO2 TOTAL (test code = 5119708335) 26 mmol/L 23-31 AGAP (test code = 6731183707) 8 2-16 BUN (test code = 5995840507) 9 mg/dL 7-23 GLUCOSE (test code = 2988392066) 93 mg/dL 70-110 CREATININE (test code = 2359970884) 0.60 mg/dL 0.50-1.04 TOTAL BILI (test code = 3025042975) 0.2 mg/dL 0.1-1.1 CALCIUM (test code = 3278259610) 9.2 mg/dL 8.6-10.6 T PROTEIN (test code = 5833771180) 7.0 g/dL 6.3-8.2 ALBUMIN (test code = 5118334607) 4.2 g/dL 3.5-5.0 ALK PHOS (test code = 1312079015) 118 U/L 34-122 ALTv (test code = 1742-6) 34 U/L 5-35 AST(SGOT) (test code = 4508982836) 34 U/L 13-40 eGFR (test code = 92184-6) 108.1 mL/min/1.73m2 ZAINAB (test code = ZAINAB) [...] or abnormalities in imaging tests). [facility]. METABOLIC PANEL ([id number])2022-11-03 17:25:32* Test Item Value Reference Range Interpretation Comme nts NA (test code = 7721820795) 139 mmol/L 135-145 K (test code = 1728892450) 4.2 mmol/L 3.5-5.0 CL (test code = 9082585607) 105 mmol/L 98-108 CO2 TOTAL (test code = 9930728274) 26 mmol/L 23-31 AGAP (test code = 4686052870) 8 2-16 BUN (test code = 1782130299) 9 mg/dL 7-23 GLUCOSE (test code = 1347188956) 93 mg/dL 70-110 CREATININE (test code = 6333347327) 0.60 mg/dL 0.50-1.04 TOTAL BILI (test code = 3077025203) 0.2 mg/dL 0.1-1.1 CALCIUM (test code = 3850157467) 9.2 mg/dL 8.6-10.6 T PROTEIN (test code = 1861388486) 7.0 g/dL 6.3-8.2 ALBUMIN (test code = 3737921894) 4.2 g/dL 3.5-5.0 ALK PHOS (test code = 1764744257) 118 U/L 34-122 ALTv (test code = 1742-6) 34 U/L 5-35 AST(SGOT) (test code = 7193219704) 34 U/L 13-40 eGFR (test code = 03899-2) 108.1 mL/min/1.73m2 ZAINAB (test code = ZAINAB) [...] or abnormalities in imaging tests). [facility]. METABOLIC PANEL ([id number])2022-11-03 17:25:32* Test Item Value Reference Range Interpretation Comme nts NA (test code = 1439037787) 139 mmol/L 135-145 K (test code = 8149526015) 4.2 mmol/L 3.5-5.0 CL (test code = 9037232007) 105 mmol/L 98-108 CO2 TOTAL (test code = 1430629477) 26 mmol/L 23-31 AGAP (test code = 2494329638) 8 2-16 BUN (test code = 9853157948) 9 mg/dL 7-23 GLUCOSE (test code = 4340846457) 93 mg/dL 70-110 CREATININE (test code = 2932950268) 0.60 mg/dL 0.50-1.04 TOTAL BILI (test code = 9747588421) 0.2 mg/dL 0.1-1.1 CALCIUM (test code = 8406047079) 9.2 mg/dL 8.6-10.6 T PROTEIN (test code = 8365593364) 7.0 g/dL 6.3-8.2 ALBUMIN (test code = 8814552517) 4.2 g/dL 3.5-5.0 ALK PHOS (test code = 5208245116) 118 U/L 34-122 ALTv (test code = 1742-6) 34 U/L 5-35 AST(SGOT) (test code = 3998063644) 34 U/L 13-40 eGFR (test code = 31607-7) 108.1 mL/min/1.73m2 ZAINAB (test code = ZAINAB) [...] in imaging tests). [facility] WITH [id number] 17:18:52* Test Item Value Reference Range Interpretation Comme nts WBC (test code = 6690-2) 7.41 See_Comment [[employer]] The system which generated this result transmitted reference range: 4.30 - 11.10 10*3/?L. The reference range was not used to interpret this result as normal/abnormal. RBC (test code = 789-8) 4.20 See_Comment [[employer]] The system which generated this result [...] g/dL 31.6-35.1 L RDW-SD (test code = 43649-2) 46.2 fL 39.0-49.9 RDW-CV (test code = 788-0) 17.9 % 12.0-15.5 H PLT (test code = 777-3) 304 See_Comment [[employer]] The system which generated this result transmitted reference range: 166 - 358 10*3/?L. The reference range was not used to interpret this result as normal/abnormal. MPV (test code = 60667-8) 11.0 fL 9.5-12.9 NRBC/100 WBC (test code = 2839040651) 0.0 See_Comment [[employer]] The system which generated this result transmitted reference range: 0.0 - 10.0 /100 WBCs. The reference range was not used to interpret this result as normal/abnormal. NRBC x10^3 (test code = 6885605298) See_Comment [Automated messa ge] The system which generated this result transmitted reference range: 10*3/?L. The reference range was not used to interpret this result as normal/abnormal. GRAN MAT (NEUT) % (test code = 770-8) 68.6 % IMM GRAN % (test code = 5527703432) 0.70 % LYMPH % (test code = 736-9) 19.8 % MONO % (test code = 5905-5) 5.3 % EOS % (test code = 713-8) 5.1 % BASO % (test code = 706-2) 0.5 % GRAN MAT x10^3(ANC) (test code = 8984957976) 5.08 10*3/uL 1.88-7.09 IMM GRAN x10^3 (test code = 8704175513) 0.05 10*3/uL 0.00-0.06 LYMPH x10^3 (test code = 731-0) 1.47 10*3/uL 1.32-3.29 MONO x10^3 (test code = 742-7) 0.39 10*3/uL 0.33-0.92 EOS x10^3 (test code = 711-2) 0.38 10*3/uL 0.03-0.39 BASO x10^3 (test code = 704-7) 0.04 10*3/uL 0.01-0.07 Lab Interpretation (test code = 85096-7) Abnormal [facility] WITH [id number] 17:18:52* Test Item Value Reference Range Interpretation Comme nts WBC (test code = 6690-2) 7.41 See_Comment [[employer]] The system which generated this result transmitted reference range: 4.30 - 11.10 10*3/?L. The reference range was not used to interpret this result as normal/abnormal. RBC (test code = 789-8) 4.20 See_Comment [[employer]] The system which generated this result [...] g/dL 31.6-35.1 L RDW-SD (test code = 11077-8) 46.2 fL 39.0-49.9 RDW-CV (test code = 788-0) 17.9 % 12.0-15.5 H PLT (test code = 777-3) 304 See_Comment [Automated [employer] ge] The system which generated this result transmitted reference range: 166 - 358 10*3/?L. The reference range was not used to interpret this result as normal/abnormal. MPV (test code = 43016-8) 11.0 fL 9.5-12.9 NRBC/100 WBC (test code = 1601257492) 0.0 See_Comment [[employer]] The system which generated this result transmitted reference range: 0.0 - 10.0 /100 WBCs. The reference range was not used to interpret this result as normal/abnormal. NRBC x10^3 (test code = 2219890955) See_Comment [Automated messa ge] The system which generated this result transmitted reference range: 10*3/?L. The reference range was not used to interpret this result as normal/abnormal. GRAN MAT (NEUT) % (test code = 770-8) 68.6 % IMM GRAN % (test code = 0245754848) 0.70 % LYMPH % (test code = 736-9) 19.8 % MONO % (test code = 5905-5) 5.3 % EOS % (test code = 713-8) 5.1 % BASO % (test code = 706-2) 0.5 % GRAN MAT x10^3(ANC) (test code = 4092231943) 5.08 10*3/uL 1.88-7.09 IMM GRAN x10^3 (test code = 9232668028) 0.05 10*3/uL 0.00-0.06 LYMPH x10^3 (test code = 731-0) 1.47 10*3/uL 1.32-3.29 MONO x10^3 (test code = 742-7) 0.39 10*3/uL 0.33-0.92 EOS x10^3 (test code = 711-2) 0.38 10*3/uL 0.03-0.39 BASO x10^3 (test code = 704-7) 0.04 10*3/uL 0.01-0.07 Lab Interpretation (test code = 31155-3) Abnormal [facility] WITH [id number] 17:18:52* Test Item Value Reference Range Interpretation [...] g/dL 31.6-35.1 L RDW-SD (test code = 72899-5) 46.2 fL 39.0-49.9 RDW-CV (test code = 788-0) 17.9 % 12.0-15.5 H PLT (test code = 777-3) 304 See_Comment [Automated mess[employer] ge] The system which generated this result transmitted reference range: 166 - 358 10*3/?L. The reference range was not used to interpret this result as normal/abnormal. MPV (test code = 54044-0) 11.0 fL 9.5-12.9 NRBC/100 WBC (test code = 7364489727) 0.0 See_Comment [Automated me ssage] The system which generated this result transmitted reference range: 0.0 - 10.0 /100 WBCs. The reference range was not used to interpret this result as normal/abnormal. NRBC x10^3 (test code = 4744965984) See_Comment [Automated messa ge] The system which generated this result transmitted reference range: 10*3/?L. The reference range was not used to interpret this result as normal/abnormal. GRAN MAT (NEUT) % (test code = 770-8) 68.6 % IMM GRAN % (test code = 2530900079) 0.70 % LYMPH % (test code = 736-9) 19.8 % MONO % (test code = 5905-5) 5.3 % EOS % (test code = 713-8) 5.1 % BASO % (test code = 706-2) 0.5 % GRAN MAT x10^3(ANC) (test code = 0663323016) 5.08 10*3/uL 1.88-7.09 IMM GRAN x10^3 (test code = 8877077308) 0.05 10*3/uL 0.00-0.06 LYMPH x10^3 (test code = 731-0) 1.47 10*3/uL 1.32-3.29 MONO x10^3 (test code = 742-7) 0.39 10*3/uL 0.33-0.92 EOS x10^3 (test code = 711-2) 0.38 10*3/uL 0.03-0.39 BASO x10^3 (test code = 704-7) 0.04 10*3/uL 0.01-0.07 Lab Interpretation (test code = 96892-7) Abnormal [facility] WITH [id number] 17:18:52* Test Item Value Reference Range Interpretation [...] g/dL 31.6-35.1 L RDW-SD (test code = 70864-7) 46.2 fL 39.0-49.9 RDW-CV (test code = 788-0) 17.9 % 12.0-15.5 H PLT (test code = 777-3) 304 See_Comment [[employer]] The system which generated this result transmitted reference range: 166 - 358 10*3/?L. The reference range was not used to interpret this result as normal/abnormal. MPV (test code = 66047-3) 11.0 fL 9.5-12.9 NRBC/100 WBC (test code = 0788912807) 0.0 See_Comment [[employer]] The system which generated this result transmitted reference range: 0.0 - 10.0 /100 WBCs. The reference range was not used to interpret this result as normal/abnormal. NRBC x10^3 (test code = 9105109640) See_Comment [[employer]] The system which generated this result transmitted reference range: 10*3/?L. The reference range was not used to interpret this result as normal/abnormal. GRAN MAT (NEUT) % (test code = 770-8) 68.6 % IMM GRAN % (test code = 4190270106) 0.70 % LYMPH % (test code = 736-9) 19.8 % MONO % (test code = 5905-5) 5.3 % EOS % (test code = 713-8) 5.1 % BASO % (test code = 706-2) 0.5 % GRAN MAT x10^3(ANC) (test code = 5777846227) 5.08 10*3/uL 1.88-7.09 IMM GRAN x10^3 (test code = 1083927053) 0.05 10*3/uL 0.00-0.06 LYMPH x10^3 (test code = 731-0) 1.47 10*3/uL 1.32-3.29 MONO x10^3 (test code = 742-7) 0.39 10*3/uL 0.33-0.92 EOS x10^3 (test code = 711-2) 0.38 10*3/uL 0.03-0.39 BASO x10^3 (test code = 704-7) 0.04 10*3/uL 0.01-0.07 Lab Interpretation (test code = 18843-4) Abnormal [facility] WITH [id number] 17:18:52* Test Item Value Reference Range Interpretation Comme nts WBC (test code = 6690-2) 7.41 See_Comment [[employer]] The system which generated this result transmitted reference range: 4.30 - 11.10 10*3/?L. The reference range was not used to interpret this result as normal/abnormal. RBC (test code = 789-8) 4.20 See_Comment [[employer]] The system which generated this result transmitted [...] g/dL 31.6-35.1 L RDW-SD (test code = 06441-0) 46.2 fL 39.0-49.9 RDW-CV (test code = 788-0) 17.9 % 12.0-15.5 H PLT (test code = 777-3) 304 See_Comment [Automated mess[employer] ge] The system which generated this result transmitted reference range: 166 - 358 10*3/?L. The reference range was not used to interpret this result as normal/abnormal. MPV (test code = 61745-4) 11.0 fL 9.5-12.9 NRBC/100 WBC (test code = 0383806433) 0.0 See_Comment [Automated me ssage] The system which generated this result transmitted reference range: 0.0 - 10.0 /100 WBCs. The reference range was not used to interpret this result as normal/abnormal. NRBC x10^3 (test code = 3127003587) See_Comment [Automated mess[employer] ge] The system which generated this result transmitted reference range: 10*3/?L. The reference range was not used to interpret this result as normal/abnormal. GRAN MAT (NEUT) % (test code = 770-8) 68.6 % IMM GRAN % (test code = 2708185641) 0.70 % LYMPH % (test code = 736-9) 19.8 % MONO % (test code = 5905-5) 5.3 % EOS % (test code = 713-8) 5.1 % BASO % (test code = 706-2) 0.5 % GRAN MAT x10^3(ANC) (test code = 5999625519) 5.08 10*3/uL 1.88-7.09 IMM GRAN x10^3 (test code = 1125730928) 0.05 10*3/uL 0.00-0.06 LYMPH x10^3 (test code = 731-0) 1.47 10*3/uL 1.32-3.29 MONO x10^3 (test code = 742-7) 0.39 10*3/uL 0.33-0.92 EOS x10^3 (test code = 711-2) 0.38 10*3/uL 0.03-0.39 BASO x10^3 (test code = 704-7) 0.04 10*3/uL 0.01-0.07 Lab Interpretation (test code = 74041-5) Abnormal [facility] WITH [id number] 17:18:52* Test Item Value Reference Range Interpretation [...] g/dL 31.6-35.1 L RDW-SD (test code = 02020-8) 46.2 fL 39.0-49.9 RDW-CV (test code = 788-0) 17.9 % 12.0-15.5 H PLT (test code = 777-3) 304 See_Comment [Automated messa ge] The system which generated this result transmitted reference range: 166 - 358 10*3/?L. The reference range was not used to interpret this result as normal/abnormal. MPV (test code = 47859-1) 11.0 fL 9.5-12.9 NRBC/100 WBC (test code = 2693957528) 0.0 See_Comment [Automated [employer] ssage] The system which generated this result transmitted reference range: 0.0 - 10.0 /100 WBCs. The reference range was not used to interpret this result as normal/abnormal. NRBC x10^3 (test code = 8364709408) See_Comment [Automated messa ge] The system which generated this result transmitted reference range: 10*3/?L. The reference range was not used to interpret this result as normal/abnormal. GRAN MAT (NEUT) % (test code = 770-8) 68.6 % IMM GRAN % (test code = 5138889721) 0.70 % LYMPH % (test code = 736-9) 19.8 % MONO % (test code = 5905-5) 5.3 % EOS % (test code = 713-8) 5.1 % BASO % (test code = 706-2) 0.5 % GRAN MAT x10^3(ANC) (test code = 1980159347) 5.08 10*3/uL 1.88-7.09 IMM GRAN x10^3 (test code = 9807701650) 0.05 10*3/uL 0.00-0.06 LYMPH x10^3 (test code = 731-0) 1.47 10*3/uL 1.32-3.29 MONO x10^3 (test code = 742-7) 0.39 10*3/uL 0.33-0.92 EOS x10^3 (test code = 711-2) 0.38 10*3/uL 0.03-0.39 BASO x10^3 (test code = 704-7) 0.04 10*3/uL 0.01-0.07 Lab Interpretation (test code = 59441-3) Abnormal [facility] WITH [id number] 17:18:52* Test Item Value Reference Range Interpretation Comme nts WBC (test code = 6690-2) 7.41 See_Comment [Automated [employer]] The system which generated this result [...] g/dL 31.6-35.1 L RDW-SD (test code = 65056-3) 46.2 fL 39.0-49.9 RDW-CV (test code = 788-0) 17.9 % 12.0-15.5 H PLT (test code = 777-3) 304 See_Comment [Automated messa ge] The system which generated this result transmitted reference range: 166 - 358 10*3/?L. The reference range was not used to interpret this result as normal/abnormal. MPV (test code = 14572-1) 11.0 fL 9.5-12.9 NRBC/100 WBC (test code = 3819294269) 0.0 See_Comment [Automated [employer] ssage] The system which generated this result transmitted reference range: 0.0 - 10.0 /100 WBCs. The reference range was not used to interpret this result as normal/abnormal. NRBC x10^3 (test code = 9266043220) See_Comment [Automated [employer]] The system which generated this result transmitted reference range: 10*3/?L. The reference range was not used to interpret this result as normal/abnormal. GRAN MAT (NEUT) % (test code = 770-8) 68.6 % IMM GRAN % (test code = 7802410249) 0.70 % LYMPH % (test code = 736-9) 19.8 % MONO % (test code = 5905-5) 5.3 % EOS % (test code = 713-8) 5.1 % BASO % (test code = 706-2) 0.5 % GRAN MAT x10^3(ANC) (test code = 3270568038) 5.08 10*3/uL 1.88-7.09 IMM GRAN x10^3 (test code = 5653011085) 0.05 10*3/uL 0.00-0.06 LYMPH x10^3 (test code = 731-0) 1.47 10*3/uL 1.32-3.29 MONO x10^3 (test code = 742-7) 0.39 10*3/uL 0.33-0.92 EOS x10^3 (test code = 711-2) 0.38 10*3/uL 0.03-0.39 BASO x10^3 (test code = 704-7) 0.04 10*3/uL 0.01-0.07 Lab Interpretation (test code = 89685-0) Abnormal [facility] WITH [id number] 17:18:52* Test Item Value Reference Range Interpretation [...] g/dL 31.6-35.1 L RDW-SD (test code = 41388-2) 46.2 fL 39.0-49.9 RDW-CV (test code = 788-0) 17.9 % 12.0-15.5 H PLT (test code = 777-3) 304 See_Comment [Automated messa ge] The system which generated this result transmitted reference range: 166 - 358 10*3/?L. The reference range was not used to interpret this result as normal/abnormal. MPV (test code = 61739-9) 11.0 fL 9.5-12.9 NRBC/100 WBC (test code = 2546442783) 0.0 See_Comment [Automated me ssage] The system which generated this result transmitted reference range: 0.0 - 10.0 /100 WBCs. The reference range was not used to interpret this result as normal/abnormal. NRBC x10^3 (test code = 5717328960) See_Comment [Automated messa ge] The system which generated this result transmitted reference range: 10*3/?L. The reference range was not used to interpret this result as normal/abnormal. GRAN MAT (NEUT) % (test code = 770-8) 68.6 % IMM GRAN % (test code = 4023995934) 0.70 % LYMPH % (test code = 736-9) 19.8 % MONO % (test code = 5905-5) 5.3 % EOS % (test code = 713-8) 5.1 % BASO % (test code = 706-2) 0.5 % GRAN MAT x10^3(ANC) (test code = 2268087554) 5.08 10*3/uL 1.88-7.09 IMM GRAN x10^3 (test code = 3670809310) 0.05 10*3/uL 0.00-0.06 LYMPH x10^3 (test code = 731-0) 1.47 10*3/uL 1.32-3.29 MONO x10^3 (test code = 742-7) 0.39 10*3/uL 0.33-0.92 EOS x10^3 (test code = 711-2) 0.38 10*3/uL 0.03-0.39 BASO x10^3 (test code = 704-7) 0.04 10*3/uL 0.01-0.07 Lab Interpretation (test code = 76388-6) Abnormal [facility] WITH [id number] 17:18:52* Test Item Value Reference Range Interpretation [...] g/dL 31.6-35.1 L RDW-SD (test code = 77577-3) 46.2 fL 39.0-49.9 RDW-CV (test code = 788-0) 17.9 % 12.0-15.5 H PLT (test code = 777-3) 304 See_Comment [Automated messa ge] The system which generated this result transmitted reference range: 166 - 358 10*3/?L. The reference range was not used to interpret this result as normal/abnormal. MPV (test code = 61867-1) 11.0 fL 9.5-12.9 NRBC/100 WBC (test code = 2261184214) 0.0 See_Comment [Automated [employer] ssage] The system which generated this result transmitted reference range: 0.0 - 10.0 /100 WBCs. The reference range was not used to interpret this result as normal/abnormal. NRBC x10^3 (test code = 1582834595) See_Comment [Automated messa ge] The system which generated this result transmitted reference range: 10*3/?L. The reference range was not used to interpret this result as normal/abnormal. GRAN MAT (NEUT) % (test code = 770-8) 68.6 % IMM GRAN % (test code = 5276594114) 0.70 % LYMPH % (test code = 736-9) 19.8 % MONO % (test code = 5905-5) 5.3 % EOS % (test code = 713-8) 5.1 % BASO % (test code = 706-2) 0.5 % GRAN MAT x10^3(ANC) (test code = 5973432045) 5.08 10*3/uL 1.88-7.09 IMM GRAN x10^3 (test code = 1589606206) 0.05 10*3/uL 0.00-0.06 LYMPH x10^3 (test code = 731-0) 1.47 10*3/uL 1.32-3.29 MONO x10^3 (test code = 742-7) 0.39 10*3/uL 0.33-0.92 EOS x10^3 (test code = 711-2) 0.38 10*3/uL 0.03-0.39 BASO x10^3 (test code = 704-7) 0.04 10*3/uL 0.01-0.07 Lab Interpretation (test code = 58760-0) Abnormal [facility] WITH [id number] 17:18:52* Test Item Value Reference Range Interpretation [...] g/dL 31.6-35.1 L RDW-SD (test code = 06853-5) 46.2 fL 39.0-49.9 RDW-CV (test code = 788-0) 17.9 % 12.0-15.5 H PLT (test code = 777-3) 304 See_Comment [Automated messa ge] The system which generated this result transmitted reference range: 166 - 358 10*3/?L. The reference range was not used to interpret this result as normal/abnormal. MPV (test code = 33073-3) 11.0 fL 9.5-12.9 NRBC/100 WBC (test code = 5383042395) 0.0 See_Comment [Automated me ssage] The system which generated this result transmitted reference range: 0.0 - 10.0 /100 WBCs. The reference range was not used to interpret this result as normal/abnormal. NRBC x10^3 (test code = 5899627965) See_Comment [Automated messa ge] The system which generated this result transmitted reference range: 10*3/?L. The reference range was not used to interpret this result as normal/abnormal. GRAN MAT (NEUT) % (test code = 770-8) 68.6 % IMM GRAN % (test code = 8819375130) 0.70 % LYMPH % (test code = 736-9) 19.8 % MONO % (test code = 5905-5) 5.3 % EOS % (test code = 713-8) 5.1 % BASO % (test code = 706-2) 0.5 % GRAN MAT x10^3(ANC) (test code = 2067502648) 5.08 10*3/uL 1.88-7.09 IMM GRAN x10^3 (test code = 8899861556) 0.05 10*3/uL 0.00-0.06 LYMPH x10^3 (test code = 731-0) 1.47 10*3/uL 1.32-3.29 MONO x10^3 (test code = 742-7) 0.39 10*3/uL 0.33-0.92 EOS x10^3 (test code = 711-2) 0.38 10*3/uL 0.03-0.39 BASO x10^3 (test code = 704-7) 0.04 10*3/uL 0.01-0.07 Lab Interpretation (test code = 04080-5) Abnormal [facility] WITH [id number] 17:18:52* Test Item Value Reference Range Interpretation Comme nts WBC (test code = 6690-2) 7.41 See_Comment [Automated messa ge] The system which generated this result transmitted reference range: 4.30 - 11.10 10*3/?L. The reference range was not used to interpret this result as normal/abnormal. RBC (test code = 789-8) 4.20 See_Comment [Automated [employer]] The system which generated this result [...] g/dL 31.6-35.1 L RDW-SD (test code = 11028-4) 46.2 fL 39.0-49.9 RDW-CV (test code = 788-0) 17.9 % 12.0-15.5 H PLT (test code = 777-3) 304 See_Comment [Automated [employer]] The system which generated this result transmitted reference range: 166 - 358 10*3/?L. The reference range was not used to interpret this result as normal/abnormal. MPV (test code = 22536-3) 11.0 fL 9.5-12.9 NRBC/100 WBC (test code = 0700350560) 0.0 See_Comment [Automated [employer] ssage] The system which generated this result transmitted reference range: 0.0 - 10.0 /100 WBCs. The reference range was not used to interpret this result as normal/abnormal. NRBC x10^3 (test code = 4791084008) See_Comment [Automated [employer]] The system which generated this result transmitted reference range: 10*3/?L. The reference range was not used to interpret this result as normal/abnormal. GRAN MAT (NEUT) % (test code = 770-8) 68.6 % IMM GRAN % (test code = 5265682881) 0.70 % LYMPH % (test code = 736-9) 19.8 % MONO % (test code = 5905-5) 5.3 % EOS % (test code = 713-8) 5.1 % BASO % (test code = 706-2) 0.5 % GRAN MAT x10^3(ANC) (test code = 6321436947) 5.08 10*3/uL 1.88-7.09 IMM GRAN x10^3 (test code = 7197765949) 0.05 10*3/uL 0.00-0.06 LYMPH x10^3 (test code = 731-0) 1.47 10*3/uL 1.32-3.29 MONO x10^3 (test code = 742-7) 0.39 10*3/uL 0.33-0.92 EOS x10^3 (test code = 711-2) 0.38 10*3/uL 0.03-0.39 BASO x10^3 (test code = 704-7) 0.04 10*3/uL 0.01-0.07 Lab Interpretation (test code = 27324-5) Abnormal [facility] WITH [id number] 17:18:52* Test Item Value Reference Range Interpretation Comme nts WBC (test code = 6690-2) 7.41 See_Comment [Automated [employer]] The system which generated this result transmitted reference range: 4.30 - 11.10 10*3/?L. The reference range was not used to interpret this result as normal/abnormal. RBC (test code = 789-8) 4.20 See_Comment [Automated [employer]] The system which generated this result [...] g/dL 31.6-35.1 L RDW-SD (test code = 70984-2) 46.2 fL 39.0-49.9 RDW-CV (test code = 788-0) 17.9 % 12.0-15.5 H PLT (test code = 777-3) 304 See_Comment [Automated messa ge] The system which generated this result transmitted reference range: 166 - 358 10*3/?L. The reference range was not used to interpret this result as normal/abnormal. MPV (test code = 84517-9) 11.0 fL 9.5-12.9 NRBC/100 WBC (test code = 1766897996) 0.0 See_Comment [[employer]ated [employer] ssage] The system which generated this result transmitted reference range: 0.0 - 10.0 /100 WBCs. The reference range was not used to interpret this result as normal/abnormal. NRBC x10^3 (test code = 5949938336) See_Comment [Automated [employer]] The system which generated this result transmitted reference range: 10*3/?L. The reference range was not used to interpret this result as normal/abnormal. GRAN MAT (NEUT) % (test code = 770-8) 68.6 % IMM GRAN % (test code = 1295208473) 0.70 % LYMPH % (test code = 736-9) 19.8 % MONO % (test code = 5905-5) 5.3 % EOS % (test code = 713-8) 5.1 % BASO % (test code = 706-2) 0.5 % GRAN MAT x10^3(ANC) (test code = 5174792354) 5.08 10*3/uL 1.88-7.09 IMM GRAN x10^3 (test code = 2222694848) 0.05 10*3/uL 0.00-0.06 LYMPH x10^3 (test code = 731-0) 1.47 10*3/uL 1.32-3.29 MONO x10^3 (test code = 742-7) 0.39 10*3/uL 0.33-0.92 EOS x10^3 (test code = 711-2) 0.38 10*3/uL 0.03-0.39 BASO x10^3 (test code = 704-7) 0.04 10*3/uL 0.01-0.07 Lab Interpretation (test code = 53324-0) Abnormal [facility] WITH [id number] 17:18:52* Test Item Value Reference Range Interpretation Comme nts WBC (test code = 6690-2) 7.41 See_Comment [Automated [employer]] The system which generated this result transmitted reference range: 4.30 - 11.10 10*3/?L. The reference range was not used to interpret this result as normal/abnormal. RBC (test code = 789-8) 4.20 See_Comment [Automated [employer]] The system which generated this result [...] g/dL 31.6-35.1 L RDW-SD (test code = 32686-7) 46.2 fL 39.0-49.9 RDW-CV (test code = 788-0) 17.9 % 12.0-15.5 H PLT (test code = 777-3) 304 See_Comment [Automated messa ge] The system which generated this result transmitted reference range: 166 - 358 10*3/?L. The reference range was not used to interpret this result as normal/abnormal. MPV (test code = 31370-8) 11.0 fL 9.5-12.9 NRBC/100 WBC (test code = 0213319220) 0.0 See_Comment [[employer] ssage] The system which generated this result transmitted reference range: 0.0 - 10.0 /100 WBCs. The reference range was not used to interpret this result as normal/abnormal. NRBC x10^3 (test code = 9839011904) See_Comment [Automated messa ge] The system which generated this result transmitted reference range: 10*3/?L. The reference range was not used to interpret this result as normal/abnormal. GRAN MAT (NEUT) % (test code = 770-8) 68.6 % IMM GRAN % (test code = 8847607098) 0.70 % LYMPH % (test code = 736-9) 19.8 % MONO % (test code = 5905-5) 5.3 % EOS % (test code = 713-8) 5.1 % BASO % (test code = 706-2) 0.5 % GRAN MAT x10^3(ANC) (test code = 7938556969) 5.08 10*3/uL 1.88-7.09 IMM GRAN x10^3 (test code = 3444859186) 0.05 10*3/uL 0.00-0.06 LYMPH x10^3 (test code = 731-0) 1.47 10*3/uL 1.32-3.29 MONO x10^3 (test code = 742-7) 0.39 10*3/uL 0.33-0.92 EOS x10^3 (test code = 711-2) 0.38 10*3/uL 0.03-0.39 BASO x10^3 (test code = 704-7) 0.04 10*3/uL 0.01-0.07 Lab Interpretation (test code = 76309-4) Abnormal [facility] WITH [id number] 17:18:52* Test Item Value Reference Range Interpretation [...] g/dL 31.6-35.1 L RDW-SD (test code = 32170-0) 46.2 fL 39.0-49.9 RDW-CV (test code = 788-0) 17.9 % 12.0-15.5 H PLT (test code = 777-3) 304 See_Comment [Automated messa ge] The system which generated this result transmitted reference range: 166 - 358 10*3/?L. The reference range was not used to interpret this result as normal/abnormal. MPV (test code = 02679-5) 11.0 fL 9.5-12.9 NRBC/100 WBC (test code = 8932440500) 0.0 See_Comment [[employer] ssage] The system which generated this result transmitted reference range: 0.0 - 10.0 /100 WBCs. The reference range was not used to interpret this result as normal/abnormal. NRBC x10^3 (test code = 1022473017) See_Comment [Automated messa ge] The system which generated this result transmitted reference range: 10*3/?L. The reference range was not used to interpret this result as normal/abnormal. GRAN MAT (NEUT) % (test code = 770-8) 68.6 % IMM GRAN % (test code = 6650106436) 0.70 % LYMPH % (test code = 736-9) 19.8 % MONO % (test code = 5905-5) 5.3 % EOS % (test code = 713-8) 5.1 % BASO % (test code = 706-2) 0.5 % GRAN MAT x10^3(ANC) (test code = 5655944685) 5.08 10*3/uL 1.88-7.09 IMM GRAN x10^3 (test code = 2482356361) 0.05 10*3/uL 0.00-0.06 LYMPH x10^3 (test code = 731-0) 1.47 10*3/uL 1.32-3.29 MONO x10^3 (test code = 742-7) 0.39 10*3/uL 0.33-0.92 EOS x10^3 (test code = 711-2) 0.38 10*3/uL 0.03-0.39 BASO x10^3 (test code = 704-7) 0.04 10*3/uL 0.01-0.07 Lab Interpretation (test code = 64730-8) Abnormal [facility] WITH [id number] 17:18:52* Test Item Value Reference Range Interpretation Comme nts WBC (test code = 6690-2) 7.41 See_Comment [Automated [employer]] The system which generated this result [...] g/dL 31.6-35.1 L RDW-SD (test code = 46359-6) 46.2 fL 39.0-49.9 RDW-CV (test code = 788-0) 17.9 % 12.0-15.5 H PLT (test code = 777-3) 304 See_Comment [Automated messa ge] The system which generated this result transmitted reference range: 166 - 358 10*3/?L. The reference range was not used to interpret this result as normal/abnormal. MPV (test code = 12863-5) 11.0 fL 9.5-12.9 NRBC/100 WBC (test code = 6335175397) 0.0 See_Comment [Automated me ssage] The system which generated this result transmitted reference range: 0.0 - 10.0 /100 WBCs. The reference range was not used to interpret this result as normal/abnormal. NRBC x10^3 (test code = 8857425109) See_Comment [Automated messa ge] The system which generated this result transmitted reference range: 10*3/?L. The reference range was not used to interpret this result as normal/abnormal. GRAN MAT (NEUT) % (test code = 770-8) 68.6 % IMM GRAN % (test code = 7288341440) 0.70 % LYMPH % (test code = 736-9) 19.8 % MONO % (test code = 5905-5) 5.3 % EOS % (test code = 713-8) 5.1 % BASO % (test code = 706-2) 0.5 % GRAN MAT x10^3(ANC) (test code = 8590743795) 5.08 10*3/uL 1.88-7.09 IMM GRAN x10^3 (test code = 2634641356) 0.05 10*3/uL 0.00-0.06 LYMPH x10^3 (test code = 731-0) 1.47 10*3/uL 1.32-3.29 MONO x10^3 (test code = 742-7) 0.39 10*3/uL 0.33-0.92 EOS x10^3 (test code = 711-2) 0.38 10*3/uL 0.03-0.39 BASO x10^3 (test code = 704-7) 0.04 10*3/uL 0.01-0.07 Lab Interpretation (test code = 28201-0) Abnormal [facility] WITH [id number] 17:18:52* Test Item Value Reference Range Interpretation Comme nts WBC (test code = 6690-2) 7.41 See_Comment [Automated messa ge] The system which generated this result transmitted reference range: 4.30 - 11.10 10*3/?L. The reference range was not used to interpret this result as normal/abnormal. RBC (test code = 789-8) 4.20 See_Comment [Automated [employer]] The system which generated this result [...] g/dL 31.6-35.1 L RDW-SD (test code = 18667-7) 46.2 fL 39.0-49.9 RDW-CV (test code = 788-0) 17.9 % 12.0-15.5 H PLT (test code = 777-3) 304 See_Comment [Automated [employer]] The system which generated this result transmitted reference range: 166 - 358 10*3/?L. The reference range was not used to interpret this result as normal/abnormal. MPV (test code = 70990-7) 11.0 fL 9.5-12.9 NRBC/100 WBC (test code = 5835199366) 0.0 See_Comment [[employer] ssage] The system which generated this result transmitted reference range: 0.0 - 10.0 /100 WBCs. The reference range was not used to interpret this result as normal/abnormal. NRBC x10^3 (test code = 7163891497) See_Comment [Automated [employer]] The system which generated this result transmitted reference range: 10*3/?L. The reference range was not used to interpret this result as normal/abnormal. GRAN MAT (NEUT) % (test code = 770-8) 68.6 % IMM GRAN % (test code = 9808131984) 0.70 % LYMPH % (test code = 736-9) 19.8 % MONO % (test code = 5905-5) 5.3 % EOS % (test code = 713-8) 5.1 % BASO % (test code = 706-2) 0.5 % GRAN MAT x10^3(ANC) (test code = 0502425550) 5.08 10*3/uL 1.88-7.09 IMM GRAN x10^3 (test code = 6134989551) 0.05 10*3/uL 0.00-0.06 LYMPH x10^3 (test code = 731-0) 1.47 10*3/uL 1.32-3.29 MONO x10^3 (test code = 742-7) 0.39 10*3/uL 0.33-0.92 EOS x10^3 (test code = 711-2) 0.38 10*3/uL 0.03-0.39 BASO x10^3 (test code = 704-7) 0.04 10*3/uL 0.01-0.07 Lab Interpretation (test code = 09842-4) Abnormal [facility] WITH [id number] 17:18:52* Test Item Value Reference Range Interpretation Comme nts WBC (test code = 6690-2) 7.41 See_Comment [Automated [employer]] The system which generated this result transmitted reference range: 4.30 - 11.10 10*3/?L. The reference range was not used to interpret this result as normal/abnormal. RBC (test code = 789-8) 4.20 See_Comment [Automated [employer]] The system which generated this result [...] g/dL 31.6-35.1 L RDW-SD (test code = 09677-1) 46.2 fL 39.0-49.9 RDW-CV (test code = 788-0) 17.9 % 12.0-15.5 H PLT (test code = 777-3) 304 See_Comment [Automated messa ge] The system which generated this result transmitted reference range: 166 - 358 10*3/?L. The reference range was not used to interpret this result as normal/abnormal. MPV (test code = 58163-6) 11.0 fL 9.5-12.9 NRBC/100 WBC (test code = 8558531814) 0.0 See_Comment [Automated me ssage] The system which generated this result transmitted reference range: 0.0 - 10.0 /100 WBCs. The reference range was not used to interpret this result as normal/abnormal. NRBC x10^3 (test code = 6561378569) See_Comment [Automated messa ge] The system which generated this result transmitted reference range: 10*3/?L. The reference range was not used to interpret this result as normal/abnormal. GRAN MAT (NEUT) % (test code = 770-8) 68.6 % IMM GRAN % (test code = 8070242059) 0.70 % LYMPH % (test code = 736-9) 19.8 % MONO % (test code = 5905-5) 5.3 % EOS % (test code = 713-8) 5.1 % BASO % (test code = 706-2) 0.5 % GRAN MAT x10^3(ANC) (test code = 3520186120) 5.08 10*3/uL 1.88-7.09 IMM GRAN x10^3 (test code = 7185632655) 0.05 10*3/uL 0.00-0.06 LYMPH x10^3 (test code = 731-0) 1.47 10*3/uL 1.32-3.29 MONO x10^3 (test code = 742-7) 0.39 10*3/uL 0.33-0.92 EOS x10^3 (test code = 711-2) 0.38 10*3/uL 0.03-0.39 BASO x10^3 (test code = 704-7) 0.04 10*3/uL 0.01-0.07 Lab Interpretation (test code = 52569-5) Abnormal [facility] WITH [id number] 17:18:52* Test Item Value Reference Range Interpretation [...] g/dL 31.6-35.1 L RDW-SD (test code = 62176-2) 46.2 fL 39.0-49.9 RDW-CV (test code = 788-0) 17.9 % 12.0-15.5 H PLT (test code = 777-3) 304 See_Comment [Automated messa ge] The system which generated this result transmitted reference range: 166 - 358 10*3/?L. The reference range was not used to interpret this result as normal/abnormal. MPV (test code = 11307-6) 11.0 fL 9.5-12.9 NRBC/100 WBC (test code = 4764304666) 0.0 See_Comment [[employer] ssage] The system which generated this result transmitted reference range: 0.0 - 10.0 /100 WBCs. The reference range was not used to interpret this result as normal/abnormal. NRBC x10^3 (test code = 9472108728) See_Comment [Automated messa ge] The system which generated this result transmitted reference range: 10*3/?L. The reference range was not used to interpret this result as normal/abnormal. GRAN MAT (NEUT) % (test code = 770-8) 68.6 % IMM GRAN % (test code = 8465369842) 0.70 % LYMPH % (test code = 736-9) 19.8 % MONO % (test code = 5905-5) 5.3 % EOS % (test code = 713-8) 5.1 % BASO % (test code = 706-2) 0.5 % GRAN MAT x10^3(ANC) (test code = 8178833970) 5.08 10*3/uL 1.88-7.09 IMM GRAN x10^3 (test code = 8675802555) 0.05 10*3/uL 0.00-0.06 LYMPH x10^3 (test code = 731-0) 1.47 10*3/uL 1.32-3.29 MONO x10^3 (test code = 742-7) 0.39 10*3/uL 0.33-0.92 EOS x10^3 (test code = 711-2) 0.38 10*3/uL 0.03-0.39 BASO x10^3 (test code = 704-7) 0.04 10*3/uL 0.01-0.07 Lab Interpretation (test code = 50569-3) Abnormal [facility] [id number] 16:24:00* Test Item Value Reference Range Interpretation Comme nts POCT PREG (test code = 1605) Negative On board controls acceptable with C Line (test code = 3574) Yes POCT PREG LOT # (test code = 3575) [id number] POCT PREG TEST DATE ( test code = 3576) 04-11-2024 Lab Interpretation (test cod e = 00858-2) Normal [facility] [id number] 16:24:00* Test Item Value Reference Range Interpretation Comme nts POCT PREG (test code = 1605) Negative On board controls acceptable with C Line (test code = 3574) Yes POCT PREG LOT # (test code = 3575) [id number] POCT PREG TEST DATE ( test code = 3576) 04-11-2024 Lab Interpretation (test cod e = 46459-1) [facility] [id number] 16:24:00* Test Item Value Reference Range Interpretation Comme nts POCT PREG (test code = 1605) Negative On board controls acceptable with C Line (test code = 3574) Yes POCT PREG LOT # (test code = 3575) [id number] POCT PREG TEST DATE ( test code = 3576) 04-11-2024 Lab Interpretation (test cod e = 64455-7) [facility] [id number] 16:24:00* Test Item Value Reference Range Interpretation Comme nts POCT PREG (test code = 1605) Negative On board controls acceptable with C Line (test code = 3574) Yes POCT PREG LOT # (test code = 3575) [id number] POCT PREG TEST DATE ( test code = 3576) 04-11-2024 Lab Interpretation (test cod e = 54463-8) [facility] [id number] 16:24:00* Test Item Value Reference Range Interpretation Comme nts POCT PREG (test code = 1605) Negative On board controls acceptable with C Line (test code = 3574) Yes POCT PREG LOT # (test code = 3575) [id number] POCT PREG TEST DATE ( test code = 3576) 04-11-2024 Lab Interpretation (test cod e = 47250-1) [facility] [id number] 16:24:00* Test Item Value Reference Range Interpretation Comme nts POCT PREG (test code = 1605) Negative On board controls acceptable with C Line (test code = 3574) Yes POCT PREG LOT # (test code = 3575) [id number] POCT PREG TEST DATE ( test code = 3576) 04-11-2024 Lab Interpretation (test cod e = 91558-6) [facility] [id number] 16:24:00* Test Item Value Reference Range Interpretation Comme nts POCT PREG (test code = 1605) Negative On board controls acceptable with C Line (test code = 3574) Yes POCT PREG LOT # (test code = 3575) [id number] POCT PREG TEST DATE ( test code = 3576) 04-11-2024 Lab Interpretation (test cod e = 11298-5) [facility] [id number] 16:24:00* Test Item Value Reference Range Interpretation Comme nts POCT PREG (test code = 1605) Negative On board controls acceptable with C Line (test code = 3574) Yes POCT PREG LOT # (test code = 3575) [id number] POCT PREG TEST DATE ( test code = 3576) 04-11-2024 Lab Interpretation (test cod e = 22366-0) [facility] [id number] 16:24:00* Test Item Value Reference Range Interpretation Comme nts POCT PREG (test code = 1605) Negative On board controls acceptable with C Line (test code = 3574) Yes POCT PREG LOT # (test code = 3575) [id number] POCT PREG TEST DATE ( test code = 3576) 04-11-2024 Lab Interpretation (test cod e = 15882-4) [facility] [id number] 16:24:00* Test Item Value Reference Range Interpretation Comme nts POCT PREG (test code = 1605) Negative On board controls acceptable with C Line (test code = 3574) Yes POCT PREG LOT # (test code = 3575) [id number] POCT PREG TEST DATE ( test code = 3576) 04-11-2024 Lab Interpretation (test cod e = 97435-6) [facility] [id number] 16:24:00* Test Item Value Reference Range Interpretation Comme nts POCT PREG (test code = 1605) Negative On board controls acceptable with C Line (test code = 3574) Yes POCT PREG LOT # (test code = 3575) [id number] POCT PREG TEST DATE ( test code = 3576) 04-11-2024 Lab Interpretation (test cod e = 51020-0) [facility] [id number] 16:24:00* Test Item Value Reference Range Interpretation Comme nts POCT PREG (test code = 1605) Negative On board controls acceptable with C Line (test code = 3574) Yes POCT PREG LOT # (test code = 3575) [id number] POCT PREG TEST DATE ( test code = 3576) 04-11-2024 Lab Interpretation (test cod e = 27551-8) [facility] [id number] 16:24:00* Test Item Value Reference Range Interpretation Comme nts POCT PREG (test code = 1605) Negative On board controls acceptable with C Line (test code = 3574) Yes POCT PREG LOT # (test code = 3575) [id number] POCT PREG TEST DATE ( test code = 3576) 04-11-2024 Lab Interpretation (test cod e = 19341-1) [facility] [id number] 16:24:00* Test Item Value Reference Range Interpretation Comme nts POCT PREG (test code = 1605) Negative On board controls acceptable with C Line (test code = 3574) Yes POCT PREG LOT # (test code = 3575) [id number] POCT PREG TEST DATE ( test code = 3576) 04-11-2024 Lab Interpretation (test cod e = 94612-6) [facility] [id number] 16:24:00* Test Item Value Reference Range Interpretation Comme nts POCT PREG (test code = 1605) Negative On board controls acceptable with C Line (test code = 3574) Yes POCT PREG LOT # (test code = 3575) [id number] POCT PREG TEST DATE ( test code = 3576) 04-11-2024 Lab Interpretation (test cod e = 55258-1) [facility] [id number] 16:24:00* Test Item Value Reference Range Interpretation Comme nts POCT PREG (test code = 1605) Negative On board controls acceptable with C Line (test code = 3574) Yes POCT PREG LOT # (test code = 3575) [id number] POCT PREG TEST DATE ( test code = 3576) 04-11-2024 Lab Interpretation (test cod e = 44874-4) [facility] [id number] 16:24:00* Test Item Value Reference Range Interpretation Comme nts POCT PREG (test code = 1605) Negative On board controls acceptable with C Line (test code = 3574) Yes POCT PREG LOT # (test code = 3575) [id number] POCT PREG TEST DATE ( test code = 3576) 04-11-2024 Lab Interpretation (test cod e = 91844-6) [id number] 16:24:[facility]* Test Item Value Reference Range Interpretation Comme nts POCT PREG (test code = 1605) Negative On board controls acceptable with C Line (test code = 3574) Yes POCT PREG LOT # (test code = 3575) [id number] POCT PREG TEST DATE ( test code = 3576) 04-11-2024 Lab Interpretation (test cod e = 75017-4) [facility] ONLY CELIAC SCREEN [id number] 19:09:14 * Test Item Value Reference Range Interpretation Comme nts Tissue Transglutaminase (tTG) Ab, IgA Interpretation (test code = 25350-2) Negative Negative Deamidated Gliadin Peptide (DGP) Ab, IgA Interpretation (test code = 01041-4) Negative Negative Tissue Transglutaminase (tTG) Ab, IgA (test code = 7090764951) <=7.0 Deamidated Gliadin Peptide (DGP) Ab, IgA (test code = 4139164799) 0.4 U/mL <=7.0 ZAINAB (test code = ZAINAB) < 7 U/mL ? Negative7 - 10 U/mL ?Equivocal> 10 U/mL ?Positive In case of equivocal results, we recommend to retest the patient after 8 -12 weeks. Lab Interpretation (test code = 50071-2) Normal [facility] ONLY CELIAC SCREEN [id number] 19:09:14 * Test Item Value Reference Range Interpretation Comme nts Tissue Transglutaminase (tTG) Ab, IgA Interpretation (test code = 82405-3) Negative Negative Deamidated Gliadin Peptide (DGP) Ab, IgA Interpretation (test code = 72414-0) Negative Negative Tissue Transglutaminase (tTG) Ab, IgA (test code = 6160144125) <=7.0 Deamidated Gliadin Peptide (DGP) Ab, IgA (test code = 7874754756) 0.4 U/mL <=7.0 ZAINAB (test code = ZAINAB) < 7 U/mL ? Negative7 - 10 U/mL ?Equivocal> 10 U/mL ?Positive In case of equivocal results, we recommend to retest the patient after 8 -12 weeks. Lab Interpretation (test code = 13059-2) Normal [facility] ONLY CELIAC SCREEN [id number] 19:09:14 * Test Item Value Reference Range Interpretation Comme nts Tissue Transglutaminase (tTG) Ab, IgA Interpretation (test code = 44737-3) Negative Negative Deamidated Gliadin Peptide (DGP) Ab, IgA Interpretation (test code = 76843-8) Negative Negative Tissue Transglutaminase (tTG) Ab, IgA (test code = 8985603087) <=7.0 Deamidated Gliadin Peptide (DGP) Ab, IgA (test code = 1822104755) 0.4 U/mL <=7.0 ZAINAB (test code = ZAINAB) < 7 U/mL ? Negative7 - 10 U/mL ?Equivocal> 10 U/mL ?Positive In case of equivocal results, we recommend to retest the patient after 8 -12 weeks. Lab Interpretation (test code = 85647-4) Normal [facility] ONLY CELIAC SCREEN [id number] 19:09:14 * Test Item Value Reference Range Interpretation Comme nts Tissue Transglutaminase (tTG) Ab, IgA Interpretation (test code = 40987-4) Negative Negative Deamidated Gliadin Peptide (DGP) Ab, IgA Interpretation (test code = 86240-8) Negative Negative Tissue Transglutaminase (tTG) Ab, IgA (test code = 6095399933) <=7.0 Deamidated Gliadin Peptide (DGP) Ab, IgA (test code = 5024740166) 0.4 U/mL <=7.0 ZAINAB (test code = ZAINAB) < 7 U/mL ? Negative7 - 10 U/mL ?Equivocal> 10 U/mL ?Positive In case of equivocal results, we recommend to retest the patient after 8 -12 weeks. Lab Interpretation (test code = 64118-9) Normal [facility] ONLY CELIAC SCREEN [id number] 19:09:14 * Test Item Value Reference Range Interpretation Comme nts Tissue Transglutaminase (tTG) Ab, IgA Interpretation (test code = 22045-7) Negative Negative Deamidated Gliadin Peptide (DGP) Ab, IgA Interpretation (test code = 47277-8) Negative Negative Tissue Transglutaminase (tTG) Ab, IgA (test code = 4146062062) <=7.0 Deamidated Gliadin Peptide (DGP) Ab, IgA (test code = 3529354049) 0.4 U/mL <=7.0 ZAINAB (test code = ZAINAB) < 7 U/mL ? Negative7 - 10 U/mL ?Equivocal> 10 U/mL ?Positive In case of equivocal results, we recommend to retest the patient after 8 -12 weeks. Lab Interpretation (test code = 67400-8) Normal [facility] ONLY CELIAC SCREEN [id number] 19:09:14 * Test Item Value Reference Range Interpretation Comme nts Tissue Transglutaminase (tTG) Ab, IgA Interpretation (test code = 02452-8) Negative Negative Deamidated Gliadin Peptide (DGP) Ab, IgA Interpretation (test code = 03183-3) Negative Negative Tissue Transglutaminase (tTG) Ab, IgA (test code = 3541645959) <=7.0 Deamidated Gliadin Peptide (DGP) Ab, IgA (test code = 6377777753) 0.4 U/mL <=7.0 ZAINAB (test code = ZAINAB) < 7 U/mL ? Negative7 - 10 U/mL ?Equivocal> 10 U/mL ?Positive In case of equivocal results, we recommend to retest the patient after 8 -12 weeks. Lab Interpretation (test code = 03220-4) Normal [facility] ONLY CELIAC SCREEN [id number] 19:09:14 * Test Item Value Reference Range Interpretation Comme nts Tissue Transglutaminase (tTG) Ab, IgA Interpretation (test code = 96314-9) Negative Negative Deamidated Gliadin Peptide (DGP) Ab, IgA Interpretation (test code = 52343-4) Negative Negative Tissue Transglutaminase (tTG) Ab, IgA (test code = 5652593939) <=7.0 Deamidated Gliadin Peptide (DGP) Ab, IgA (test code = 1449090678) 0.4 U/mL <=7.0 ZAINAB (test code = ZAINAB) < 7 U/mL ? Negative7 - 10 U/mL ?Equivocal> 10 U/mL ?Positive In case of equivocal results, we recommend to retest the patient after 8 -12 weeks. Lab Interpretation (test code = 33655-7) Normal [facility] ONLY CELIAC SCREEN [id number] 19:09:14 * Test Item Value Reference Range Interpretation Comme nts Tissue Transglutaminase (tTG) Ab, IgA Interpretation (test code = 80172-3) Negative Negative Deamidated Gliadin Peptide (DGP) Ab, IgA Interpretation (test code = 03152-2) Negative Negative Tissue Transglutaminase (tTG) Ab, IgA (test code = 0533074858) <=7.0 Deamidated Gliadin Peptide (DGP) Ab, IgA (test code = 9278206567) 0.4 U/mL <=7.0 ZAINAB (test code = ZAINAB) < 7 U/mL ? Negative7 - 10 U/mL ?Equivocal> 10 U/mL ?Positive In case of equivocal results, we recommend to retest the patient after 8 -12 weeks. Lab Interpretation (test code = 82835-9) Normal [facility] ONLY CELIAC SCREEN [id number] 19:09:14 * Test Item Value Reference Range Interpretation Comme nts Tissue Transglutaminase (tTG) Ab, IgA Interpretation (test code = 15936-1) Negative Negative Deamidated Gliadin Peptide (DGP) Ab, IgA Interpretation (test code = 30901-7) Negative Negative Tissue Transglutaminase (tTG) Ab, IgA (test code = 0926021365) <=7.0 Deamidated Gliadin Peptide (DGP) Ab, IgA (test code = 9416438523) 0.4 U/mL <=7.0 ZAINAB (test code = ZAINAB) < 7 U/mL ? Negative7 - 10 U/mL ?Equivocal> 10 U/mL ?Positive In case of equivocal results, we recommend to retest the patient after 8 -12 weeks. Lab Interpretation (test code = 56869-7) Normal [facility] ONLY CELIAC SCREEN [id number] 19:09:14 * Test Item Value Reference Range Interpretation Comme nts Tissue Transglutaminase (tTG) Ab, IgA Interpretation (test code = 20868-1) Negative Negative Deamidated Gliadin Peptide (DGP) Ab, IgA Interpretation (test code = 07404-0) Negative Negative Tissue Transglutaminase (tTG) Ab, IgA (test code = 8601735301) <=7.0 Deamidated Gliadin Peptide (DGP) Ab, IgA (test code = 0099404812) 0.4 U/mL <=7.0 ZAINAB (test code = ZAINAB) < 7 U/mL ? Negative7 - 10 U/mL ?Equivocal> 10 U/mL ?Positive In case of equivocal results, we recommend to retest the patient after 8 -12 weeks. Lab Interpretation (test code = 48199-5) Normal [facility] ONLY CELIAC SCREEN [id number] 19:09:14 * Test Item Value Reference Range Interpretation Comme nts Tissue Transglutaminase (tTG) Ab, IgA Interpretation (test code = 24402-3) Negative Negative Deamidated Gliadin Peptide (DGP) Ab, IgA Interpretation (test code = 09123-1) Negative Negative Tissue Transglutaminase (tTG) Ab, IgA (test code = 0555585061) <=7.0 Deamidated Gliadin Peptide (DGP) Ab, IgA (test code = 2815020499) 0.4 U/mL <=7.0 ZAINAB (test code = ZAINAB) < 7 U/mL ? Negative7 - 10 U/mL ?Equivocal> 10 U/mL ?Positive In case of equivocal results, we recommend to retest the patient after 8 -12 weeks. Lab Interpretation (test code = 59472-9) Normal [facility] ONLY CELIAC SCREEN [id number] 19:09:14 * Test Item Value Reference Range Interpretation Comme nts Tissue Transglutaminase (tTG) Ab, IgA Interpretation (test code = 78618-3) Negative Negative Deamidated Gliadin Peptide (DGP) Ab, IgA Interpretation (test code = 98481-4) Negative Negative Tissue Transglutaminase (tTG) Ab, IgA (test code = 1746993869) <=7.0 Deamidated Gliadin Peptide (DGP) Ab, IgA (test code = 7054286451) 0.4 U/mL <=7.0 ZAINAB (test code = ZAINAB) < 7 U/mL ? Negative7 - 10 U/mL ?Equivocal> 10 U/mL ?Positive In case of equivocal results, we recommend to retest the patient after 8 -12 weeks. Lab Interpretation (test code = 77045-2) Normal [facility] [id number] 20:24:44* Test Item Value Reference Range Interpretation Comme nts Total IgA (test code = 6221957918) 78.3 U/mL 70-312 Lab Interpretation (test cod e = 92758-8) [facility] [id number] 20:24:44* Test Item Value Reference Range Interpretation Comme nts Total IgA (test code = 0912566279) 78.3 U/mL 70-312 Lab Interpretation (test cod e = 75884-3) [facility] [id number] 20:24:44* Test Item Value Reference Range Interpretation Comme nts Total IgA (test code = 3128073888) 78.3 U/mL 70-312 Lab Interpretation (test cod e = 22824-4) [facility] [id number] 20:24:44* Test Item Value Reference Range Interpretation Comme nts Total IgA (test code = 6638967075) 78.3 U/mL 70-312 Lab Interpretation (test cod e = 93619-6) [facility] [id number] 20:24:44* Test Item Value Reference Range Interpretation Comme nts Total IgA (test code = 3556010313) 78.3 U/mL 70-312 Lab Interpretation (test cod e = 03794-1) Normal [facility]2023-09-07 20:24:44* Test Item Value Reference Range Interpretation Comme nts Total IgA (test code = 0844283649) 78.3 U/mL 70-312 Lab Interpretation (test cod e = 64468-7) Normal [facility]2023-09-07 20:24:44* Test Item Value Reference Range Interpretation Comme nts Total IgA (test code = 8578325993) 78.3 U/mL 70-312 Lab Interpretation (test cod e = 92498-6) Normal [facility]2023-09-07 20:24:44* Test Item Value Reference Range Interpretation Comme nts Total IgA (test code = 6076210595) 78.3 U/mL 70-312 Lab Interpretation (test cod e = 78084-7) Normal [facility]2023-09-07 20:24:44* Test Item Value Reference Range Interpretation Comme nts Total IgA (test code = 2402233324) 78.3 U/mL 70-312 Lab Interpretation (test cod e = 92576-3) [facility] [id number] 20:24:44* Test Item Value Reference Range Interpretation Comme nts Total IgA (test code = 6634236773) 78.3 U/mL 70-312 Lab Interpretation (test cod e = 40713-9) Normal [facility] [id number] 20:24:44* Test Item Value Reference Range Interpretation Comme nts Total IgA (test code = 5645383804) 78.3 U/mL 70-312 Lab Interpretation (test cod e = 66007-1) [facility] [id number] 20:24:44* Test Item Value Reference Range Interpretation Comme nts Total IgA (test code = 6810789490) 78.3 U/mL 70-312 Lab Interpretation (test cod e = 98753-8) [facility] [id number] 17:30:19* Test Item Value Reference Range Interpretation Comme nts FERRITIN (test code = 3686350258) 4.8 ng/mL 6.0-137.0 L ZAINAB (test code = ZAINAB) Biotin has been reported to cause a negative bias, interpret results relative to patient's use of biotin. Lab Interpretation (test code = 76882-4) Abnormal [facility] [id number] 17:30:19* Test Item Value Reference Range Interpretation Comme nts FERRITIN (test code = 2765318443) 4.8 ng/mL 6.0-137.0 L ZAINAB (test code = ZAINAB) Biotin has been reported to cause a negative bias, interpret results relative to patient's use of biotin. Lab Interpretation (test code = 78594-6) Abnormal [facility] [id number] 17:30:19* Test Item Value Reference Range Interpretation Comme nts FERRITIN (test code = 6151209315) 4.8 ng/mL 6.0-137.0 L ZAINAB (test code = ZAINAB) Biotin has been reported to cause a negative bias, interpret results relative to patient's use of biotin. Lab Interpretation (test code = 28973-2) Abnormal [facility] [id number] 17:30:19* Test Item Value Reference Range Interpretation Comme nts FERRITIN (test code = 5310028748) 4.8 ng/mL 6.0-137.0 L ZAINAB (test code = ZAINAB) Biotin has been reported to cause a negative bias, interpret results relative to patient's use of biotin. Lab Interpretation (test code = 35774-7) Abnormal [facility] [id number] 17:30:19* Test Item Value Reference Range Interpretation Comme nts FERRITIN (test code = 4554731485) 4.8 ng/mL 6.0-137.0 L ZAIANB (test code = ZAINAB) Biotin has been reported to cause a negative bias, interpret results relative to patient's use of biotin. Lab Interpretation (test code = 49580-2) Abnormal [facility] [id number] 17:30:19* Test Item Value Reference Range Interpretation Comme nts FERRITIN (test code = 8762104117) 4.8 ng/mL 6.0-137.0 L ZAINAB (test code = ZAINAB) Biotin has been reported to cause a negative bias, interpret results relative to patient's use of biotin. Lab Interpretation (test code = 29964-3) Abnormal [facility] [id number] 17:30:19* Test Item Value Reference Range Interpretation Comme nts FERRITIN (test code = 5112709625) 4.8 ng/mL 6.0-137.0 L ZAINAB (test code = ZAINAB) Biotin has been reported to cause a negative bias, interpret results relative to patient's use of biotin. Lab Interpretation (test code = 16212-0) Abnormal [facility] [id number] 17:30:19* Test Item Value Reference Range Interpretation Comme nts FERRITIN (test code = 3148807148) 4.8 ng/mL 6.0-137.0 L ZAINAB (test code = ZAINAB) Biotin has been reported to cause a negative bias, interpret results relative to patient's use of biotin. Lab Interpretation (test code = 42219-3) Abnormal [facility] [id number] 17:30:19* Test Item Value Reference Range Interpretation Comme nts FERRITIN (test code = 0740693038) 4.8 ng/mL 6.0-137.0 L ZAINAB (test code = ZAINAB) Biotin has been reported to cause a negative bias, interpret results relative to patient's use of biotin. Lab Interpretation (test code = 81145-1) Abnormal [facility] [id number] 17:30:19* Test Item Value Reference Range Interpretation Comme nts FERRITIN (test code = 7515176702) 4.8 ng/mL 6.0-137.0 L ZAINAB (test code = ZAINAB) Biotin has been reported to cause a negative bias, interpret results relative to patient's use of biotin. Lab Interpretation (test code = 65781-1) Abnormal [facility] [id number] 17:30:19* Test Item Value Reference Range Interpretation Comme nts F[place]IT[place] (test code = 8247401330) 4.8 ng/mL 6.0-137.0 L ZAINAB (test code = ZAINAB) Biotin has been reported to cause a negative bias, interpret results relative to patient's use of biotin. Lab Interpretation (test code = 01449-3) [facility] [id number] 17:30:19* Test Item Value Reference Range Interpretation Comme nts FERRITIN (test code = 1613797516) 4.8 ng/mL 6.0-137.0 L ZAINAB (test code = ZAINAB) Biotin has been reported to cause a negative bias, interpret results relative to patient's use of biotin. Lab Interpretation (test code = 82113-7) Abnormal [facility] [id number] 17:03:34* Test Item Value Reference Range Interpretation Comme nts IRON (test code = 0226541786) 34 ug/dL 50-160 L TIBC (test code = 1090142364) 515 ug/dL 250-410 H % FE SAT (test code = 9124930514) 7 % 20-50 L Lab Interpretation (test cod e = 74361-3) Abnormal [facility] [id number] 17:03:34* Test Item Value Reference Range Interpretation Comme nts IRON (test code = 1930078960) 34 ug/dL 50-160 L TIBC (test code = 9727454980) 515 ug/dL 250-410 H % FE SAT (test code = 7461435714) 7 % 20-50 L Lab Interpretation (test cod e = 15760-4) Abnormal [facility] [id number] 17:03:34* Test Item Value Reference Range Interpretation Comme nts IRON (test code = 7802999966) 34 ug/dL 50-160 L TIBC (test code = 9329873163) 515 ug/dL 250-410 H % FE SAT (test code = 5935573670) 7 % 20-50 L Lab Interpretation (test cod e = 10096-5) Abnormal [facility] [id number] 17:03:34* Test Item Value Reference Range Interpretation Comme nts IRON (test code = 4042304520) 34 ug/dL 50-160 L TIBC (test code = 1932827302) 515 ug/dL 250-410 H % FE SAT (test code = 4148088970) 7 % 20-50 L Lab Interpretation (test cod e = 42994-1) Abnormal [facility] [id number] 17:03:34* Test Item Value Reference Range Interpretation Comme nts IRON (test code = 1291111587) 34 ug/dL 50-160 L TIBC (test code = 0382225470) 515 ug/dL 250-410 H % FE SAT (test code = 0193745019) 7 % 20-50 L Lab Interpretation (test cod e = 38339-5) Abnormal [facility]2023-09-07 17:03:34* Test Item Value Reference Range Interpretation Comme nts IRON (test code = 0361559207) 34 ug/dL 50-160 L TIBC (test code = 3821991516) 515 ug/dL 250-410 H % FE SAT (test code = 0846125623) 7 % 20-50 L Lab Interpretation (test cod e = 79503-5) Abnormal [facility]2023-09-07 17:03:34* Test Item Value Reference Range Interpretation Comme nts IRON (test code = 4579544930) 34 ug/dL 50-160 L TIBC (test code = 1345076970) 515 ug/dL 250-410 H % FE SAT (test code = 9322126188) 7 % 20-50 L Lab Interpretation (test cod e = 73725-2) Abnormal [facility]2023-09-07 17:03:34* Test Item Value Reference Range Interpretation Comme nts IRON (test code = 4848622718) 34 ug/dL 50-160 L TIBC (test code = 2783115229) 515 ug/dL 250-410 H % FE SAT (test code = 1477445381) 7 % 20-50 L Lab Interpretation (test cod e = 71625-9) Abnormal [facility]2023-09-07 17:03:34* Test Item Value Reference Range Interpretation Comme nts IRON (test code = 2530439410) 34 ug/dL 50-160 L TIBC (test code = 1622684435) 515 ug/dL 250-410 H % FE SAT (test code = 2811574204) 7 % 20-50 L Lab Interpretation (test cod e = 27020-4) Abnormal [facility]2023-09-07 17:03:34* Test Item Value Reference Range Interpretation Comme nts IRON (test code = 0562157863) 34 ug/dL 50-160 L TIBC (test code = 7685988139) 515 ug/dL 250-410 H % FE SAT (test code = 3691816282) 7 % 20-50 L Lab Interpretation (test cod e = 26340-3) Abnormal [facility] [id number] 17:03:34* Test Item Value Reference Range Interpretation Comme nts IRON (test code = 6651822031) 34 ug/dL 50-160 L TIBC (test code = 8239673773) 515 ug/dL 250-410 H % FE SAT (test code = 5967221365) 7 % 20-50 L Lab Interpretation (test cod e = 70466-8) Abnormal [facility] [id number] 17:03:34* Test Item Value Reference Range Interpretation Comme nts IRON (test code = 7295807236) 34 ug/dL 50-160 L TIBC (test code = 6937822522) 515 ug/dL 250-410 H % FE SAT (test code = 3640148478) 7 % 20-50 L Lab Interpretation (test cod e = 98969-5) Abnormal [facility]2023-08-24 19:48:06* Test Item Value Reference Range Interpretation Comme nts [place] (test code = 8875802342) 0.5 mmol/L 0.6-1.2 L ZAINAB (test code = ZAINAB) Toxic Range: ? Greater than 1.2 mmol/L Lab Interpretation (test code = 01639-4) Abnormal [facility]2023-08-24 19:48:06* Test Item Value Reference Range Interpretation Comme nts [place] (test code = 2458461670) 0.5 mmol/L 0.6-1.2 L ZAINAB (test code = ZAINAB) Toxic Range: ? Greater than 1.2 mmol/L Lab Interpretation (test code = 86809-5) Abnormal [facility]2023-08-24 19:48:06* Test Item Value Reference Range Interpretation Comme nts [place] (test code = 3825937288) 0.5 mmol/L 0.6-1.2 L ZAINAB (test code = ZAINAB) Toxic Range: ? Greater than 1.2 mmol/L Lab Interpretation (test code = 78028-5) Abnormal [facility]2023-08-24 19:48:06* Test Item Value Reference Range Interpretation Comme nts [place] (test code = 6390707592) 0.5 mmol/L 0.6-1.2 L ZAINAB (test code = ZAINAB) Toxic Range: ? Greater than 1.2 mmol/L Lab Interpretation (test code = 23982-0) Abnormal [facility]2023-08-24 19:48:06* Test Item Value Reference Range Interpretation Comme nts [place] (test code = 6535571127) 0.5 mmol/L 0.6-1.2 L ZAINAB (test code = ZAINAB) Toxic Range: ? Greater than 1.2 mmol/L Lab Interpretation (test code = 61564-3) Abnormal [facility]2023-08-24 19:48:06* Test Item Value Reference Range Interpretation Comme nts [place] (test code = 0427423184) 0.5 mmol/L 0.6-1.2 L ZAINAB (test code = ZAINAB) Toxic Range: ? Greater than 1.2 mmol/L Lab Interpretation (test code = 29282-5) Abnormal [facility]2023-08-24 19:48:06* Test Item Value Reference Range Interpretation Comme nts [place] (test code = 8147886177) 0.5 mmol/L 0.6-1.2 L ZAINAB (test code = ZAINAB) Toxic Range: ? Greater than 1.2 mmol/L Lab Interpretation (test code = 78099-0) Abnormal [facility]2023-08-24 19:48:06* Test Item Value Reference Range Interpretation Comme nts [place] (test code = 3016419434) 0.5 mmol/L 0.6-1.2 L ZAINAB (test code = ZAINAB) Toxic Range: ? Greater than 1.2 mmol/L Lab Interpretation (test code = 59665-1) Abnormal [facility]2023-08-24 19:48:06* Test Item Value Reference Range Interpretation Comme nts [place] (test code = 7481496084) 0.5 mmol/L 0.6-1.2 L ZAINAB (test code = ZAINAB) Toxic Range: ? Greater than 1.2 mmol/L Lab Interpretation (test code = 98286-1) Abnormal [facility]2023-08-24 19:48:06* Test Item Value Reference Range Interpretation Comme nts [place] (test code = 4770722791) 0.5 mmol/L 0.6-1.2 L ZAINAB (test code = ZAINAB) Toxic Range: ? Greater than 1.2 mmol/L Lab Interpretation (test code = 55933-6) Abnormal [facility]2023-08-24 19:48:06* Test Item Value Reference Range Interpretation Comme nts [place] (test code = 8809990322) 0.5 mmol/L 0.6-1.2 L ZAINAB (test code = ZAINAB) Toxic Range: ? Greater than 1.2 mmol/L Lab Interpretation (test code = 34747-7) Abnormal [facility]2023-08-24 19:48:06* Test Item Value Reference Range Interpretation Comme nts [place] (test code = 0823243220) 0.5 mmol/L 0.6-1.2 L ZAINAB (test code = ZAINAB) Toxic Range: ? Greater than 1.2 mmol/L Lab Interpretation (test code = 71191-5) Abnormal [facility]2023-08-24 19:48:06* Test Item Value Reference Range Interpretation Comme nts [place] (test code = 4512838446) 0.5 mmol/L 0.6-1.2 L ZAINAB (test code = ZAINAB) Toxic Range: ? Greater than 1.2 mmol/L Lab Interpretation (test code = 89466-3) Abnormal [facility]2023-08-24 19:48:06* Test Item Value Reference Range Interpretation Comme nts [place] (test code = 3777356606) 0.5 mmol/L 0.6-1.2 L ZAINAB (test code = ZAINAB) Toxic Range: ? Greater than 1.2 mmol/L Lab Interpretation (test code = 29448-2) [facility] [id number] 17:24:34 * Test Item Value Reference Range Interpretation Comme nts TSH (test code = 0762082975) 1.07 See_Comment [Automated messa ge] The system which generated this result transmitted reference range: 0.45 - 4.70 mIU/L. The reference range was not used to interpret this result as normal/abnormal. Lab Interpretation (test code = 63419-0) Normal [facility] [id number] 17:24:34 * Test Item Value Reference Range Interpretation Comme nts TSH (test code = 5569139761) 1.07 See_Comment [Automated messa ge] The system which generated this result transmitted reference range: 0.45 - 4.70 mIU/L. The reference range was not used to interpret this result as normal/abnormal. Lab Interpretation (test code = 04490-2) Normal [facility] [id number] 17:24:34 * Test Item Value Reference Range Interpretation Comme nts TSH (test code = 8405962036) 1.07 See_Comment [Automated messa ge] The system which generated this result transmitted reference range: 0.45 - 4.70 mIU/L. The reference range was not used to interpret this result as normal/abnormal. Lab Interpretation (test code = 86454-8) Normal [facility] [id number] 17:24:34 * Test Item Value Reference Range Interpretation Comme nts TSH (test code = 9063023796) 1.07 See_Comment [Automated messa ge] The system which generated this result transmitted reference range: 0.45 - 4.70 mIU/L. The reference range was not used to interpret this result as normal/abnormal. Lab Interpretation (test code = 24383-5) [facility] [id number] 17:24:34 * Test Item Value Reference Range Interpretation Comme nts TSH (test code = 0545950252) 1.07 See_Comment [Automated messa ge] The system which generated this result transmitted reference range: 0.45 - 4.70 mIU/L. The reference range was not used to interpret this result as normal/abnormal. Lab Interpretation (test code = 85416-9) Normal [facility] BranchTH[facility] [id number] 17:24:34 * Test Item Value Reference Range Interpretation Comme nts TSH (test code = 0763946239) 1.07 See_Comment [Automated messa ge] The system which generated this result transmitted reference range: 0.45 - 4.70 mIU/L. The reference range was not used to interpret this result as normal/abnormal. Lab Interpretation (test code = 65524-6) Normal [facility] [id number] 17:24:34 * Test Item Value Reference Range Interpretation Comme nts TSH (test code = 0015912094) 1.07 See_Comment [Automated messa ge] The system which generated this result transmitted reference range: 0.45 - 4.70 mIU/L. The reference range was not used to interpret this result as normal/abnormal. Lab Interpretation (test code = 87514-3) Normal [facility] [id number] 17:24:34 * Test Item Value Reference Range Interpretation Comme nts TSH (test code = 4951555568) 1.07 See_Comment [Automated messa ge] The system which generated this result transmitted reference range: 0.45 - 4.70 mIU/L. The reference range was not used to interpret this result as normal/abnormal. Lab Interpretation (test code = 08572-8) Normal [facility]TH[facility] [id number] 17:24:34 * Test Item Value Reference Range Interpretation Comme nts TSH (test code = 8225962100) 1.07 See_Comment [Automated messa ge] The system which generated this result transmitted reference range: 0.45 - 4.70 mIU/L. The reference range was not used to interpret this result as normal/abnormal. Lab Interpretation (test code = 50250-0) Normal [facility] BranchTHY[facility] [id number] 17:24:34 * Test Item Value Reference Range Interpretation Comme nts TSH (test code = 5041303097) 1.07 See_Comment [Automated messa ge] The system which generated this result transmitted reference range: 0.45 - 4.70 mIU/L. The reference range was not used to interpret this result as normal/abnormal. Lab Interpretation (test code = 84191-8) Normal [facility] BranchTHY[facility] [id number] 17:24:34 * Test Item Value Reference Range Interpretation Comme nts TSH (test code = 5672781709) 1.07 See_Comment [Automated messa ge] The system which generated this result transmitted reference range: 0.45 - 4.70 mIU/L. The reference range was not used to interpret this result as normal/abnormal. Lab Interpretation (test code = 02324-9) Normal [facility]TH[facility] [id number] 17:24:34 * Test Item Value Reference Range Interpretation Comme nts TSH (test code = 9899340362) 1.07 See_Comment [Automated messa ge] The system which generated this result transmitted reference range: 0.45 - 4.70 mIU/L. The reference range was not used to interpret this result as normal/abnormal. Lab Interpretation (test code = 00397-4) Normal [facility]TH[facility] [id number] 17:24:34 * Test Item Value Reference Range Interpretation Comme nts TSH (test code = 8454170252) 1.07 See_Comment [Automated messa ge] The system which generated this result transmitted reference range: 0.45 - 4.70 mIU/L. The reference range was not used to interpret this result as normal/abnormal. Lab Interpretation (test code = 88009-5) Normal [facility]TH[facility] [id number] 17:24:34 * Test Item Value Reference Range Interpretation Comme nts TSH (test code = 1381902302) 1.07 See_Comment [Automated messa ge] The system which generated this result transmitted reference range: 0.45 - 4.70 mIU/L. The reference range was not used to interpret this result as normal/abnormal. Lab Interpretation (test code = 53311-1) Normal [facility]. METABOLIC PANEL ([id number])2022-10-05 16:54:48* Test Item Value Reference Range Interpretation Comme nts NA (test code = 6988130234) 140 mmol/L 135-145 K (test code = 5432493710) 4.6 mmol/L 3.5-5.0 CL (test code = 1434266981) 106 mmol/L 98-108 CO2 TOTAL (test code = 5966457563) 28 mmol/L 23-31 AGAP (test code = 2141915694) 6 2-16 BUN (test code = 9195831316) 5 mg/dL 7-23 L GLUCOSE (test code = 9306562185) 90 mg/dL 70-110 CREATININE (test code = 6196096577) 0.54 mg/dL 0.50-1.04 TOTAL BILI (test code = 5482302110) 0.1 mg/dL 0.1-1.1 CALCIUM (test code = 5565805808) 9.6 mg/dL 8.6-10.6 T PROTEIN (test code = 1997177062) 6.2 g/dL 6.3-8.2 L ALBUMIN (test code = 5554893476) 4.0 g/dL 3.5-5.0 ALK PHOS (test code = 2036868815) 125 U/L 34-122 H ALTv (test code = 1742-6) 29 U/L 5-35 AST(SGOT) (test code = 4939833819) 24 U/L 13-40 eGFR (test code = 4306271448) 122.1 mL/min/1.73m2 ZAINAB (test code = ZAINAB) [...] imaging tests). Lab Interpretation (test code = 16492-9) Abnormal [facility] CenterLIPID PANEL (59581)(TOTAL CHOLESTEROL, TRIGLYCERIDES, HDL)2022-10-05 16:54:48* Test Item Value Reference Range Interpretation Comme nts CHOL (test code = 8178777861) 183 mg/dL 120-200 HDL (test code = 4410696694) 40 mg/dL >=50 L HDLC RATIO (test code = 6974147773) 4.6 <=4.5 H TRIG (test code = 1092459604) 128 mg/dL 30-170 LDL CHOL (test code = 01802-9) 117 mg/dL <=160 VLDL (test code = 9438344406) 26 mg/dL 5-60 Lab Interpretation (test cod e = 16737-6) [facility]normal [facility] CenterCOMP[facility] MET[facility]OLIC PANEL (77439)2022-10-05 16:54:48* Test Item Value Reference Range Interpretation Comme nts NA (test code = 4606394064) 140 mmol/L 135-145 K (test code = 2542959302) 4.6 mmol/L 3.5-5.0 CL (test code = 8937193364) 106 mmol/L 98-108 CO2 TOTAL (test code = 8849822989) 28 mmol/L 23-31 AGAP (test code = 7211726480) 6 2-16 BUN (test code = 1085859841) 5 mg/dL 7-23 L GLUCOSE (test code = 1029714045) 90 mg/dL 70-110 CREATININE (test code = 0240441684) 0.54 mg/dL 0.50-1.04 TOTAL BILI (test code = 2795612681) 0.1 mg/dL 0.1-1.1 CALCIUM (test code = 8361952439) 9.6 mg/dL 8.6-10.6 T PROTEIN (test code = 6292574366) 6.2 g/dL 6.3-8.2 L ALBUMIN (test code = 3210024689) 4.0 g/dL 3.5-5.0 ALK PHOS (test code = 6161359844) 125 U/L 34-122 H ALTv (test code = 1742-6) 29 U/L 5-35 AST(SGOT) (test code = 1767749508) 24 U/L 13-40 eGFR (test code = 2341096326) 122.1 mL/min/1.73m2 ZAINAB (test code = ZAINAB) [...] imaging tests). Lab Interpretation (test code = 69944-8) [facility] BranchL[facility] (00374)(TOTAL CHOLESTEROL, TRIGLYCERIDES, HDL)2022-10-05 16:54:48* Test Item Value Reference Range Interpretation Comme nts CHOL (test code = 3549010210) 183 mg/dL 120-200 HDL (test code = 8051873173) 40 mg/dL >=50 L HDLC RATIO (test code = 1280622208) 4.6 <=4.5 H TRIG (test code = 6955942208) 128 mg/dL 30-170 LDL CHOL (test code = 35650-1) 117 mg/dL <=160 VLDL (test code = 4418893115) 26 mg/dL 5-60 Lab Interpretation (test cod e = 08093-1) Abnormal [facility] Center[facility]OLIC PANEL (21050)2022-10-05 16:54:48* Test Item Value Reference Range Interpretation Comme nts NA (test code = 5972311356) 140 mmol/L 135-145 K (test code = 2892774851) 4.6 mmol/L 3.5-5.0 CL (test code = 2306756738) 106 mmol/L 98-108 CO2 TOTAL (test code = 8011671134) 28 mmol/L 23-31 AGAP (test code = 3700867451) 6 2-16 BUN (test code = 7996430602) 5 mg/dL 7-23 L GLUCOSE (test code = 9457888716) 90 mg/dL 70-110 CREATININE (test code = 7913629909) 0.54 mg/dL 0.50-1.04 TOTAL BILI (test code = 3910368517) 0.1 mg/dL 0.1-1.1 CALCIUM (test code = 6261252184) 9.6 mg/dL 8.6-10.6 T PROTEIN (test code = 5878837334) 6.2 g/dL 6.3-8.2 L ALBUMIN (test code = 3980364240) 4.0 g/dL 3.5-5.0 ALK PHOS (test code = 5498165373) 125 U/L 34-122 H ALTv (test code = 1742-6) 29 U/L 5-35 AST(SGOT) (test code = 9053650439) 24 U/L 13-40 eGFR (test code = 3604286357) 122.1 mL/min/1.73m2 ZAINAB (test code = ZAINAB) [...] imaging tests). Lab Interpretation (test code = 94741-6) [facility]normal [facility] CenterL[facility] (65956)(TOTAL CHOLESTEROL, TRIGLYCERIDES, HDL)2022-10-05 16:54:48* Test Item Value Reference Range Interpretation Comme nts CHOL (test code = 4100544731) 183 mg/dL 120-200 HDL (test code = 1647251704) 40 mg/dL >=50 L HDLC RATIO (test code = 8956011524) 4.6 <=4.5 H TRIG (test code = 0424708244) 128 mg/dL 30-170 LDL CHOL (test code = 29497-3) 117 mg/dL <=160 VLDL (test code = 5883226562) 26 mg/dL 5-60 Lab Interpretation (test cod e = 07025-5) Abnormal [facility] CenterL[facility] (19860)(TOTAL CHOLESTEROL, TRIGLYCERIDES, HDL)2022-10-05 16:54:48* Test Item Value Reference Range Interpretation Comme nts CHOL (test code = 3971975893) 183 mg/dL 120-200 HDL (test code = 0902841709) 40 mg/dL >=50 L HDLC RATIO (test code = 3107400315) 4.6 <=4.5 H TRIG (test code = 2048024913) 128 mg/dL 30-170 LDL CHOL (test code = 67906-6) 117 mg/dL <=160 VLDL (test code = 5958988652) 26 mg/dL 5-60 Lab Interpretation (test cod e = 25962-6) Abnormal [facility] (49484)(TOTAL CHOLESTEROL, TRIGLYCERIDES, HDL)2022-10-05 16:54:48* Test Item Value Reference Range Interpretation Comme nts CHOL (test code = 2566954087) 183 mg/dL 120-200 HDL (test code = 9091850649) 40 mg/dL >=50 L HDLC RATIO (test code = 2938569180) 4.6 <=4.5 H TRIG (test code = 5309584562) 128 mg/dL 30-170 LDL CHOL (test code = 68466-1) 117 mg/dL <=160 VLDL (test code = 0780332817) 26 mg/dL 5-60 Lab Interpretation (test cod e = 08008-8) [facility]normal [facility] (19578)(TOTAL CHOLESTEROL, TRIGLYCERIDES, HDL)2022-10-05 16:54:48* Test Item Value Reference Range Interpretation Comme nts CHOL (test code = 0252352786) 183 mg/dL 120-200 HDL (test code = 9653362940) 40 mg/dL >=50 L HDLC RATIO (test code = 2429544459) 4.6 <=4.5 H TRIG (test code = 9378764345) 128 mg/dL 30-170 LDL CHOL (test code = 26218-2) 117 mg/dL <=160 VLDL (test code = 6642943382) 26 mg/dL 5-60 Lab Interpretation (test cod e = 00085-9) Abnormal [facility] (40063)(TOTAL CHOLESTEROL, TRIGLYCERIDES, HDL)2022-10-05 16:54:48* Test Item Value Reference Range Interpretation Comme nts CHOL (test code = 7663015500) 183 mg/dL 120-200 HDL (test code = 4455390051) 40 mg/dL >=50 L HDLC RATIO (test code = 0449213589) 4.6 <=4.5 H TRIG (test code = 7312061165) 128 mg/dL 30-170 LDL CHOL (test code = 46750-4) 117 mg/dL <=160 VLDL (test code = 0156823238) 26 mg/dL 5-60 Lab Interpretation (test cod e = 15368-3) [facility]normal [facility] (34887)(TOTAL CHOLESTEROL, TRIGLYCERIDES, HDL)2022-10-05 16:54:48* Test Item Value Reference Range Interpretation Comme nts CHOL (test code = 0919013593) 183 mg/dL 120-200 HDL (test code = 0075388816) 40 mg/dL >=50 L HDLC RATIO (test code = 8993794153) 4.6 <=4.5 H TRIG (test code = 6697474922) 128 mg/dL 30-170 LDL CHOL (test code = 81167-9) 117 mg/dL <=160 VLDL (test code = 0399372007) 26 mg/dL 5-60 Lab Interpretation (test cod e = 43663-1) Abnormal [facility] (70641)(TOTAL CHOLESTEROL, TRIGLYCERIDES, HDL)2022-10-05 16:54:48* Test Item Value Reference Range Interpretation Comme nts CHOL (test code = 1952037816) 183 mg/dL 120-200 HDL (test code = 3191697134) 40 mg/dL >=50 L HDLC RATIO (test code = 6490551150) 4.6 <=4.5 H TRIG (test code = 1825407237) 128 mg/dL 30-170 LDL CHOL (test code = 46366-9) 117 mg/dL <=160 VLDL (test code = 1357648524) 26 mg/dL 5-60 Lab Interpretation (test cod e = 08478-5) [facility]normal [facility] (68900)(TOTAL CHOLESTEROL, TRIGLYCERIDES, HDL)2022-10-05 16:54:48* Test Item Value Reference Range Interpretation Comme nts CHOL (test code = 8188220543) 183 mg/dL 120-200 HDL (test code = 1818849681) 40 mg/dL >=50 L HDLC RATIO (test code = 1058000116) 4.6 <=4.5 H TRIG (test code = 5556016566) 128 mg/dL 30-170 LDL CHOL (test code = 64883-9) 117 mg/dL <=160 VLDL (test code = 6313412858) 26 mg/dL 5-60 Lab Interpretation (test cod e = 50988-2) Abnormal [facility] (90593)(TOTAL CHOLESTEROL, TRIGLYCERIDES, HDL)2022-10-05 16:54:48* Test Item Value Reference Range Interpretation Comme nts CHOL (test code = 6010518918) 183 mg/dL 120-200 HDL (test code = 1106513766) 40 mg/dL >=50 L HDLC RATIO (test code = 2432825428) 4.6 <=4.5 H TRIG (test code = 8450283116) 128 mg/dL 30-170 LDL CHOL (test code = 74963-7) 117 mg/dL <=160 VLDL (test code = 1967638502) 26 mg/dL 5-60 Lab Interpretation (test cod e = 67976-7) [facility]normal [facility] (31453)(TOTAL CHOLESTEROL, TRIGLYCERIDES, HDL)2022-10-05 16:54:48* Test Item Value Reference Range Interpretation Comme nts CHOL (test code = 7933113273) 183 mg/dL 120-200 HDL (test code = 9018272452) 40 mg/dL >=50 L HDLC RATIO (test code = 2008503163) 4.6 <=4.5 H TRIG (test code = 3790191537) 128 mg/dL 30-170 LDL CHOL (test code = 09758-6) 117 mg/dL <=160 VLDL (test code = 8491749789) 26 mg/dL 5-60 Lab Interpretation (test cod e = 99858-2) Abnormal [facility] (45459)(TOTAL CHOLESTEROL, TRIGLYCERIDES, HDL)2022-10-05 16:54:48* Test Item Value Reference Range Interpretation Comme nts CHOL (test code = 4687015362) 183 mg/dL 120-200 HDL (test code = 3976654419) 40 mg/dL >=50 L HDLC RATIO (test code = 0206666786) 4.6 <=4.5 H TRIG (test code = 1506941373) 128 mg/dL 30-170 LDL CHOL (test code = 73124-9) 117 mg/dL <=160 VLDL (test code = 7381184830) 26 mg/dL 5-60 Lab Interpretation (test cod e = 21959-5) [facility]normal [facility] (97010)(TOTAL CHOLESTEROL, TRIGLYCERIDES, HDL)2022-10-05 16:54:48* Test Item Value Reference Range Interpretation Comme nts CHOL (test code = 3076123586) 183 mg/dL 120-200 HDL (test code = 6887642505) 40 mg/dL >=50 L HDLC RATIO (test code = 8690982843) 4.6 <=4.5 H TRIG (test code = 1092484039) 128 mg/dL 30-170 LDL CHOL (test code = 68956-0) 117 mg/dL <=160 VLDL (test code = 8799858107) 26 mg/dL 5-60 Lab Interpretation (test cod e = 07372-1) Abnormal [facility] CenterGLY[facility]OSYLATED [facility]IN (A1C)2022-10-05 15:51:11* Test Item Value Reference Range Interpretation Comme nts HGB A1C (test code = 4548-4) 5.1 % 4.0-5.7 ZAINAB (test code = ZAINAB) Reference RangesNormal: <5.7%Prediabetes: 5.7 - 6.4%Diabetes: > 6.5% Lab Interpretation (test code = 89872-5) Normal [facility]GL[facility]OSYL[facility] (A1C)2022-10-05 15:51:11* Test Item Value Reference Range Interpretation Comme nts HGB A1C (test code = 4548-4) 5.1 % 4.0-5.7 ZAINAB (test code = ZAINAB) Reference RangesNormal: <5.7%Prediabetes: 5.7 - 6.4%Diabetes: > 6.5% Lab Interpretation (test code = 80114-9) Normal [facility]GL[facility]OSYLATED [facility]IN (A1C)2022-10-05 15:51:11* Test Item Value Reference Range Interpretation Comme nts HGB A1C (test code = 4548-4) 5.1 % 4.0-5.7 ZAINAB (test code = ZAINAB) Reference RangesNormal: <5.7%Prediabetes: 5.7 - 6.4%Diabetes: > 6.5% Lab Interpretation (test code = 25030-7) [facility] 15:51:11* Test Item Value Reference Range Interpretation Comme nts HGB A1C (test code = 4548-4) 5.1 % 4.0-5.7 ZAINAB (test code = ZAINAB) Reference RangesNormal: <5.7%Prediabetes: 5.7 - 6.4%Diabetes: > 6.5% Lab Interpretation (test code = 14850-1) [facility]2022-10-05 15:51:11* Test Item Value Reference Range Interpretation Comme nts HGB A1C (test code = 4548-4) 5.1 % 4.0-5.7 ZAINAB (test code = ZAINAB) Reference RangesNormal: <5.7%Prediabetes: 5.7 - 6.4%Diabetes: > 6.5% Lab Interpretation (test code = 71194-7) [facility]2022-10-05 15:51:11* Test Item Value Reference Range Interpretation Comme nts HGB A1C (test code = 4548-4) 5.1 % 4.0-5.7 ZAINAB (test code = ZAINAB) Reference RangesNormal: <5.7%Prediabetes: 5.7 - 6.4%Diabetes: > 6.5% Lab Interpretation (test code = 82011-1) [facility]2022-10-05 15:51:11* Test Item Value Reference Range Interpretation Comme nts HGB A1C (test code = 4548-4) 5.1 % 4.0-5.7 ZAINAB (test code = ZAINAB) Reference RangesNormal: <5.7%Prediabetes: 5.7 - 6.4%Diabetes: > 6.5% Lab Interpretation (test code = 80847-2) [facility]2022-10-05 15:51:11* Test Item Value Reference Range Interpretation Comme nts HGB A1C (test code = 4548-4) 5.1 % 4.0-5.7 ZAINAB (test code = ZAINAB) Reference RangesNormal: <5.7%Prediabetes: 5.7 - 6.4%Diabetes: > 6.5% Lab Interpretation (test code = 99169-0) Normal [facility]GL[facility] (A1C)2022-10-05 15:51:11* Test Item Value Reference Range Interpretation Comme nts HGB A1C (test code = 4548-4) 5.1 % 4.0-5.7 ZAINAB (test code = ZAINAB) Reference RangesNormal: <5.7%Prediabetes: 5.7 - 6.4%Diabetes: > 6.5% Lab Interpretation (test code = 49667-0) Normal [facility]GL[facility] (A1C)2022-10-05 15:51:11* Test Item Value Reference Range Interpretation Comme nts HGB A1C (test code = 4548-4) 5.1 % 4.0-5.7 ZAINAB (test code = ZAINAB) Reference RangesNormal: <5.7%Prediabetes: 5.7 - 6.4%Diabetes: > 6.5% Lab Interpretation (test code = 56040-5) [facility]2022-10-05 15:51:11* Test Item Value Reference Range Interpretation Comme nts HGB A1C (test code = 4548-4) 5.1 % 4.0-5.7 ZAINAB (test code = ZAINAB) Reference RangesNormal: <5.7%Prediabetes: 5.7 - 6.4%Diabetes: > 6.5% Lab Interpretation (test code = 11218-9) [facility]2022-10-05 15:51:11* Test Item Value Reference Range Interpretation Comme nts HGB A1C (test code = 4548-4) 5.1 % 4.0-5.7 ZAINAB (test code = ZAINAB) Reference RangesNormal: <5.7%Prediabetes: 5.7 - 6.4%Diabetes: > 6.5% Lab Interpretation (test code = 35052-7) [facility]2022-10-05 15:51:11* Test Item Value Reference Range Interpretation Comme nts HGB A1C (test code = 4548-4) 5.1 % 4.0-5.7 ZAINAB (test code = ZAINAB) Reference RangesNormal: <5.7%Prediabetes: 5.7 - 6.4%Diabetes: > 6.5% Lab Interpretation (test code = 17574-4) Normal [facility]GL[facility]C)2022-10-05 15:51:11* Test Item Value Reference Range Interpretation Comme nts HGB A1C (test code = 4548-4) 5.1 % 4.0-5.7 ZAINAB (test code = ZAINAB) Reference RangesNormal: <5.7%Prediabetes: 5.7 - 6.4%Diabetes: > 6.5% Lab Interpretation (test code = 91139-2) Normal [facility] CenterCBC WITH [id number] 15:20:32* Test Item Value Reference Range Interpretation Comme nts WBC (test code = 6690-2) 6.67 See_Comment [Automated messa ge] The system which generated this result transmitted reference range: 4.30 - 11.10 10*3/?L. The reference range was not used to interpret this result as normal/abnormal. RBC (test code = 789-8) 4.04 See_Comment [Automated [employer] ge] The system which generated this result [...] g/dL 31.6-35.1 L RDW-SD (test code = 48484-6) 47.8 fL 39.0-49.9 RDW-CV (test code = 788-0) 18.0 % 12.0-15.5 H PLT (test code = 777-3) 296 See_Comment [Automated messa ge] The system which generated this result transmitted reference range: 166 - 358 10*3/?L. The reference range was not used to interpret this result as normal/abnormal. MPV (test code = 55520-4) 10.7 fL 9.5-12.9 NRBC/100 WBC (test code = 4145495369) 0.0 See_Comment [Automated me ssage] The system which generated this result transmitted reference range: 0.0 - 10.0 /100 WBCs. The reference range was not used to interpret this result as normal/abnormal. NRBC x10^3 (test code = 6290435096) See_Comment [Automated messa ge] The system which generated this result transmitted reference range: 10*3/?L. The reference range was not used to interpret this result as normal/abnormal. GRAN MAT (NEUT) % (test code = 770-8) 70.0 % IMM GRAN % (test code = 8073368972) 0.40 % LYMPH % (test code = 736-9) 18.7 % MONO % (test code = 5905-5) 5.7 % EOS % (test code = 713-8) 4.5 % BASO % (test code = 706-2) 0.7 % GRAN MAT x10^3(ANC) (test code = 2879781416) 4.66 10*3/uL 1.88-7.09 IMM GRAN x10^3 (test code = 6173532900) 0.03 10*3/uL 0.00-0.06 LYMPH x10^3 (test code = 731-0) 1.25 10*3/uL 1.32-3.29 L MONO x10^3 (test code = 742-7) 0.38 10*3/uL 0.33-0.92 EOS x10^3 (test code = 711-2) 0.30 10*3/uL 0.03-0.39 BASO x10^3 (test code = 704-7) 0.05 10*3/uL 0.01-0.07 Lab Interpretation (test code = 58392-1) Abnormal [facility] WITH [id number] 15:20:32* Test Item Value Reference Range Interpretation [...] g/dL 31.6-35.1 L RDW-SD (test code = 16031-3) 47.8 fL 39.0-49.9 RDW-CV (test code = 788-0) 18.0 % 12.0-15.5 H PLT (test code = 777-3) 296 See_Comment [Automated messa ge] The system which generated this result transmitted reference range: 166 - 358 10*3/?L. The reference range was not used to interpret this result as normal/abnormal. MPV (test code = 64410-3) 10.7 fL 9.5-12.9 NRBC/100 WBC (test code = [id number]) 0.0 See_Comment [Automated [employer] ssage] The system which generated this result transmitted reference range: 0.0 - 10.0 /100 WBCs. The reference range was not used to interpret this result as normal/abnormal. NRBC x10^3 (test code = [id number]) See_Comment [Automated messa ge] The system which generated this result transmitted reference range: 10*3/?L. The reference range was not used to interpret this result as normal/abnormal. GRAN MAT (NEUT) % (test code = 770-8) 70.0 % IMM GRAN % (test code = 6696704630) 0.40 % LYMPH % (test code = 736-9) 18.7 % MONO % (test code = 5905-5) 5.7 % EOS % (test code = 713-8) 4.5 % BASO % (test code = 706-2) 0.7 % GRAN MAT x10^3(ANC) (test code = 8017596565) 4.66 10*3/uL 1.88-7.09 IMM GRAN x10^3 (test code = 3053483459) 0.03 10*3/uL 0.00-0.06 LYMPH x10^3 (test code = 731-0) 1.25 10*3/uL 1.32-3.29 L MONO x10^3 (test code = 742-7) 0.38 10*3/uL 0.33-0.92 EOS x10^3 (test code = 711-2) 0.30 10*3/uL 0.03-0.39 BASO x10^3 (test code = 704-7) 0.05 10*3/uL 0.01-0.07 Lab Interpretation (test code = 49430-7) Abnormal [facility] WITH [id number] 15:20:32* Test Item Value Reference Range Interpretation [...] g/dL 31.6-35.1 L RDW-SD (test code = 56648-0) 47.8 fL 39.0-49.9 RDW-CV (test code = 788-0) 18.0 % 12.0-15.5 H PLT (test code = 777-3) 296 See_Comment [Automated messa ge] The system which generated this result transmitted reference range: 166 - 358 10*3/?L. The reference range was not used to interpret this result as normal/abnormal. MPV (test code = 76845-4) 10.7 fL 9.5-12.9 NRBC/100 WBC (test code = 7913903725) 0.0 See_Comment [Automated [employer] ssage] The system which generated this result transmitted reference range: 0.0 - 10.0 /100 WBCs. The reference range was not used to interpret this result as normal/abnormal. NRBC x10^3 (test code = 5401797727) See_Comment [Automated [employer] ge] The system which generated this result transmitted reference range: 10*3/?L. The reference range was not used to interpret this result as normal/abnormal. GRAN MAT (NEUT) % (test code = 770-8) 70.0 % IMM GRAN % (test code = 7331132719) 0.40 % LYMPH % (test code = 736-9) 18.7 % MONO % (test code = 5905-5) 5.7 % EOS % (test code = 713-8) 4.5 % BASO % (test code = 706-2) 0.7 % GRAN MAT x10^3(ANC) (test code = 3241967411) 4.66 10*3/uL 1.88-7.09 IMM GRAN x10^3 (test code = 1961683508) 0.03 10*3/uL 0.00-0.06 LYMPH x10^3 (test code = 731-0) 1.25 10*3/uL 1.32-3.29 L MONO x10^3 (test code = 742-7) 0.38 10*3/uL 0.33-0.92 EOS x10^3 (test code = 711-2) 0.30 10*3/uL 0.03-0.39 BASO x10^3 (test code = 704-7) 0.05 10*3/uL 0.01-0.07 Lab Interpretation (test code = 03900-5) Abnormal [facility]2023-06-14 17:27:33* Test Item Value Reference Range Interpretation Comme nts [place] (test code = 0626825521) 0.3 mmol/L 0.6-1.2 L ZAINAB (test code = ZAINAB) Toxic Range: ? Greater than 1.2 mmol/L Lab Interpretation (test code = 50157-4) Abnormal [facility]2023-06-14 17:27:33* Test Item Value Reference Range Interpretation Comme nts [place] (test code = 1004779529) 0.3 mmol/L 0.6-1.2 L ZAINAB (test code = ZAINAB) Toxic Range: ? Greater than 1.2 mmol/L Lab Interpretation (test code = 56242-0) Abnormal [facility]2023-06-14 17:27:33* Test Item Value Reference Range Interpretation Comme nts [place] (test code = 3744565565) 0.3 mmol/L 0.6-1.2 L ZAINAB (test code = ZAINAB) Toxic Range: ? Greater than 1.2 mmol/L Lab Interpretation (test code = 12125-8) Abnormal [facility]2023-06-14 17:27:33* Test Item Value Reference Range Interpretation Comme nts [place] (test code = 1228783780) 0.3 mmol/L 0.6-1.2 L ZAINAB (test code = ZAINAB) Toxic Range: ? Greater than 1.2 mmol/L Lab Interpretation (test code = 13209-3) Abnormal [facility]2023-06-14 17:27:33* Test Item Value Reference Range Interpretation Comme nts [place] (test code = 2148080416) 0.3 mmol/L 0.6-1.2 L ZAINAB (test code = ZAINAB) Toxic Range: ? Greater than 1.2 mmol/L Lab Interpretation (test code = 60175-3) Abnormal [facility]2023-06-14 17:27:33* Test Item Value Reference Range Interpretation Comme nts [place] (test code = 1938353505) 0.3 mmol/L 0.6-1.2 L ZAINAB (test code = ZAINAB) Toxic Range: ? Greater than 1.2 mmol/L Lab Interpretation (test code = 10772-2) Abnormal [facility]2023-06-14 17:27:33* Test Item Value Reference Range Interpretation Comme nts [place] (test code = 7994759415) 0.3 mmol/L 0.6-1.2 L ZAINAB (test code = ZAINAB) Toxic Range: ? Greater than 1.2 mmol/L Lab Interpretation (test code = 17895-4) Abnormal [facility]2023-06-14 17:27:33* Test Item Value Reference Range Interpretation Comme nts [place] (test code = 7118343443) 0.3 mmol/L 0.6-1.2 L ZAINAB (test code = ZAINAB) Toxic Range: ? Greater than 1.2 mmol/L Lab Interpretation (test code = 90801-7) Abnormal [facility]2023-06-14 17:27:33* Test Item Value Reference Range Interpretation Comme nts [place] (test code = 5605426565) 0.3 mmol/L 0.6-1.2 L ZAINAB (test code = ZAINAB) Toxic Range: ? Greater than 1.2 mmol/L Lab Interpretation (test code = 69454-0) Abnormal [place] 18702-06-14 17:27:33* Test Item Value Reference Range Interpretation Comme nts [place] (test code = 5392004940) 0.3 mmol/L 0.6-1.2 L ZAINAB (test code = ZAINAB) Toxic Range: ? Greater than 1.2 mmol/L Lab Interpretation (test code = 45545-9) Abnormal [facility]2023-06-14 17:27:33* Test Item Value Reference Range Interpretation Comme nts [place] (test code = 7423925521) 0.3 mmol/L 0.6-1.2 L ZAINAB (test code = ZAINAB) Toxic Range: ? Greater than 1.2 mmol/L Lab Interpretation (test code = 47396-4) [facility]* Test Item Value Reference Range Interpretation Comme nts [place] (test code = 8613722395) 0.3 mmol/L 0.6-1.2 L ZAINAB (test code = ZAINAB) Toxic Range: ? Greater than 1.2 mmol/L Lab Interpretation (test code = 31525-6) Abnormal [facility] W/AUTO DIFF WITH [id number] 06:12:05* Test Item Value Reference Range Interpretation [...] = 1065) 0.0 /100 WBC'S See_Comment [Automated [employer]] The system which generated this result [...] 0.00-0.10 ABS NUCLEATED RBCS (test code = 72726) 0.00 K/UL 0.00-0.11 RETICULOCYTE WITH [id number] 06:12:05* Test Item Value Reference Range Interpretation Comme nts RETICULOCYTE COUNT (test code = 1018) 2.50 % 0.80-2.40 H ABSOLUTE RETICULOCYTE (test code = 12552) 103.3 K/UL 32.0-105.0 [facility] has important pathology staff changes effective 04/12/2022. New pathology staff will provide uninterrupted, excellent patient care and clinical consultation. See URL: [email or web address]. UNLESS OTHERWISE INDICATED, ALL TESTING PERFORMED AT [facility] [address] [place] [address] INSURANCE OFFICE MANAGER: CHARLA HERNANDEZ M.D. CLIA NUMBER [id number] [facility] [place]. [id number] CBC W/AUTO [id number] 00:00:00* Test Item Value Reference Range Interpretation [...] ABS NUCLEATED RBCS (test cod e = 74950) 0.00 K/UL Robert CaliRETICULOCYTE WITH [id number] 00:00:00* Test Item Value Reference Range Interpretation Comme nts RETICULOCYTE COUNT (test cod e = 1018) 2.50 % ABSOLUTE RETICULOCYTE (test code = 13512) 103.3 K/UL Robert CaliCBC W/AUTO [id number] 00:00:00* Test Item Value Reference Range Interpretation [...] ABS NUCLEATED RBCS (test cod e = 52197) 0.00 K/UL Robert Ambrose AustinRETICULOCYTE WITH [id number] 00:00:00* Test Item Value Reference Range Interpretation Comme nts RETICULOCYTE COUNT (test cod e = 1018) 2.50 % ABSOLUTE RETICULOCYTE (test code = 16332) 103.3 K/UL Robert Ambrose AustinCBC W/AUTO [id number] 00:00:00* Test Item Value Reference Range Interpretation [...] ABS NUCLEATED RBCS (test cod e = 95033) 0.00 K/UL Robert Ambrose AustinRETICULOCYTE WITH [id number] 00:00:00* Test Item Value Reference Range Interpretation Comme nts RETICULOCYTE COUNT (test cod e = 1018) 2.50 % ABSOLUTE RETICULOCYTE (test code = 07688) 103.3 K/UL Robert Ambrose AustinCBC W/AUTO [id number] 00:00:00* Test Item Value Reference Range Interpretation [...] ABS NUCLEATED RBCS (test cod e = 70377) 0.00 K/UL Robert CaliRETICULOCYTE WITH [id number] 00:00:00* Test Item Value Reference Range Interpretation Comme nts RETICULOCYTE COUNT (test cod e = 1018) 2.50 % ABSOLUTE RETICULOCYTE (test code = 50543) 103.3 K/UL Robert Ambrose AustinCBC W/AUTO [id number] 00:00:00* Test Item Value Reference Range Interpretation [...] ABS NUCLEATED RBCS (test cod e = 44376) 0.00 K/UL Robert CaliRETICULOCYTE WITH [id number] 00:00:00* Test Item Value Reference Range Interpretation Comme nts RETICULOCYTE COUNT (test cod e = 1018) 2.50 % ABSOLUTE RETICULOCYTE (test code = 49613) 103.3 K/UL Robert CaliCBC W/AUTO [id number] 00:00:00* Test Item Value Reference Range Interpretation [...] ABS NUCLEATED RBCS (test cod e = 49225) 0.00 K/UL Robert CaliRETICULOCYTE WITH [id number] 00:00:00* Test Item Value Reference Range Interpretation Comme nts RETICULOCYTE COUNT (test cod e = 1018) 2.50 % ABSOLUTE RETICULOCYTE (test code = 52511) 103.3 K/UL Robert CaliCBC W/AUTO [id number] 00:00:00* Test Item Value Reference Range Interpretation [...] ABS NUCLEATED RBCS (test cod e = 50100) 0.00 K/UL Robert CaliRETICULOCYTE WITH [id number] 00:00:00* Test Item Value Reference Range Interpretation Comme nts RETICULOCYTE COUNT (test cod e = 1018) 2.50 % ABSOLUTE RETICULOCYTE (test code = 72237) 103.3 K/UL Robert Ambrose AustinANA NON-REFLEX TO [id number] 05:55:49* Test Item Value Reference Range Interpretation Comme nts ANTI-NUCLEAR ANTIBODIES (test code = 3506) NEGATIVE NEGATIVE METHODOLOGY IS I NDIRECT IMMUNOFLUORESCENT ASSAY (IFA) WITH HUMAN EPITHELIAL (HEP-2) CELL LINE SUBSTRATE. YAZMIN NON-REFLEX TO [id number] 00:00:00* Test Item Value Reference Range Interpretation Comme nts ANTI-NUCLEAR ANTIBODIES (aram t code = 3506) NEGATIVE Robert Ambrose AustinANA NON-REFLEX TO [id number] 00:00:00* Test Item Value Reference Range Interpretation Comme nts ANTI-NUCLEAR ANTIBODIES (aram t code = 3506) NEGATIVE Robert Ambrose AustinANA NON-REFLEX TO [id number] 00:00:00* Test Item Value Reference Range Interpretation Comme nts ANTI-NUCLEAR ANTIBODIES (aram t code = 3506) NEGATIVE Robert F AustinANA NON-REFLEX TO [id number] 00:00:00* Test Item Value Reference Range Interpretation Comme nts ANTI-NUCLEAR ANTIBODIES (aram t code = 3506) NEGATIVE Robert Ambrose AustinANA NON-REFLEX TO [id number] 00:00:00* Test Item Value Reference Range Interpretation Comme nts ANTI-NUCLEAR ANTIBODIES (aram t code = 3506) NEGATIVE Robert F AustinANA NON-REFLEX TO [id number] 00:00:00* Test Item Value Reference Range Interpretation Comme nts ANTI-NUCLEAR ANTIBODIES (aram t code = 3506) NEGATIVE Robert Bailon NON-REFLEX TO [id number] 00:00:00* Test Item Value Reference Range Interpretation Comme nts ANTI-NUCLEAR ANTIBODIES (aram t code = 3506) NEGATIVE Robert CaliFOLATE, [id number] 12:42:51* Test Item Value Reference Range Interpretation [...] . . . NG/ML >1504 TSH, THIRD [id number] 11:05:54* Test Item Value Reference Range Interpretation Comme nts TSH, THIRD GENERATION (test code = 2821) 1.310 UIU/ML 0.400-4.100 VITAMIN [id number] 11:05:54* Test Item Value Reference Range Interpretation Comme nts VITAMIN B-12 (test code = 2840) 436 PG/ML 200-950 VITAMIN D, 25 [id number] 11:03:45* Test Item Value Reference Range Interpretation [...] . . . . . NG/ML 30-100 [facility] has important pathology staff changes effective 04/12/2022. New pathology staff will provide uninterrupted, excellent patient care and clinical consultation. See URL: [email or web address]. UNLESS OTHERWISE INDICATED, ALL TESTING PERFORMED AT [facility] [address] [place] [address] INSURANCE OFFICE MANAGER: CHARLA HERNANDEZ M.D. [place] NUMBER [id number] [facility] [place]. [id number] URIC [id number] 05:28:57* Test Item Value Reference Range Interpretation Comme nts URIC ACID (test code = 2233) 6.7 MG/DL 2.7-6.1 H COMPREHENSIVE METABOLIC [id number] 05:28:57* Test Item Value Reference Range Interpretation Comme nts GLUCOSE (test code = 2217) 103 MG/DL 70-99 H BUN (test code = 2208) 9 MG/DL 6-20 CREATININE (test code = 2214) 0.72 MG/DL 0.60-1.30 eGFR (2020 CKD-EPI) (test code = 93404) 106 ML/MIN/1.73 >60 CALC BUN/CREAT (test code [...] code = 2219) 26 U/L 5-40 LIPID [id number] 05:28:57* Test Item Value Reference Range Interpretation [...] SPECIMENS. FOR MOREINFORMATION, SEE CLIENT ANNOUNCEMENT AT [email or web address] RISK RATIO LDL/HDL (test code = 2238) 3.04 RATIO <3.22 HEMOGLOBIN [id number] 02:54:46* Test Item Value Reference Range Interpretation Comme nts HEMOGLOBIN A1c (test code = 15535) 5.6 % 4.2-5.6 CBC W/AUTO DIFF WITH [id number] 01:58:18* Test Item Value Reference Range Interpretation [...] = 1065) 0.0 /100 WBC'S See_Comment [Automated [employer]] The system which generated this result [...] 0.00-0.10 ABS NUCLEATED RBCS (test code = 31688) 0.00 K/UL 0.00-0.11 VITAMIN [id number] 00:00:00* Test Item Value Reference Range Interpretation Comme [facility] VIT[facility] B-12 (test code = 2840) 436 PG/ML Robert CaliFOLATE, [id number] 00:00:00* Test Item Value Reference Range Interpretation Comme nts HEMATOCRIT (test code = 1004) 28.7 % FOLATE, RBC (test code = 2690) 1185 NG/ML Robert CaliURIC [id number] 00:00:00* Test Item Value Reference Range Interpretation Comme [facility] URIC ACID (test code = 2233) 6.7 MG/DL Robert CaliVITAMIN D, 25 [id number] 00:00:00* Test Item Value Reference Range Interpretation Comme [facility] VITAMIN D, 25 OH (test code = 4958) 13 NG/ML Robert Ambrose VirajCOMPREHENSIVE METABOLIC [id number] 00:00:00* Test Item Value Reference Range Interpretation Comme nts GLUCOSE (test code = 2217) 103 MG/DL BUN (test code = 2208) 9 MG/DL CREATININE (test code = 2214) 0.72 MG/DL eGFR (2020 CKD-EPI) (test code = 29282) 106 ML/MIN/1.73 CALC BUN/CREAT (test code = [...] = 2219) 26 U/L Robert Ambrose VirajLIPID [id number] 00:00:00* Test Item Value Reference Range Interpretation Comme nts CHOLESTEROL (test code = 2210) 207 MG/DL TRIGLYCERIDES (test code = 2232) 130 MG/DL HDL CHOLESTEROL (test code = 2220) 45 MG/DL CALC LDL CHOL (test code = 2237) 137 MG/DL RISK RATIO LDL/HDL (test cod e = 2238) 3.04 RATIO Robert CaliHEMOGLOBIN [id number] 00:00:00* Test Item Value Reference Range Interpretation Comme nts HEMOGLOBIN A1c (test code = 86732) 5.6 % Robert F VirajCBC W/AUTO [id number] 00:00:00* Test Item Value Reference Range Interpretation [...] ABS NUCLEATED RBCS (test cod e = 04395) 0.00 K/UL Robert CaliTSH, THIRD [id number] 00:00:00* Test Item Value Reference Range Interpretation Comme [facility] TSH, THIRD GENERATION (test code = 2821) 1.310 UIU/ML Robert CaliVITAMIN [id number] 00:00:00* Test Item Value Reference Range Interpretation Comme [facility] VITAMIN B-12 (test code = 2840) 436 PG/ML Robert CaliFOLATE, [id number] 00:00:00* Test Item Value Reference Range Interpretation Comme [facility] HEMATOCRIT (test code = 1004) 28.7 % FOLATE, RBC (test code = 2690) 1185 NG/ML Robert CaliURIC [id number] 00:00:00* Test Item Value Reference Range Interpretation Comme [facility] URIC ACID (test code = 2233) 6.7 MG/DL Robert CaliVITAMIN D, 25 [id number] 00:00:00* Test Item Value Reference Range Interpretation Comme [facility] VITAMIN D, 25 [place] (test code = 4958) 13 NG/ML Robert Ambrose VirajCOMPREHENSIVE METABOLIC [id number] 00:00:00* Test Item Value Reference Range Interpretation Comme nts GLUCOSE (test code = 2217) 103 MG/DL BUN (test code = 2208) 9 MG/DL CREATININE (test code = 2214) 0.72 MG/DL eGFR (2020 CKD-EPI) (test code = 27696) 106 ML/MIN/1.73 CALC BUN/CREAT (test code = [...] code = 2219) 26 U/L Robert CaliLIPID [id number] 00:00:00* Test Item Value Reference Range Interpretation Comme nts CHOLESTEROL (test code = 2210) 207 MG/DL TRIGLYCERIDES (test code = 2232) 130 MG/DL HDL CHOLESTEROL (test code = 2220) 45 MG/DL CALC LDL CHOL (test code = 2237) 137 MG/DL RISK RATIO LDL/HDL (test cod e = 2238) 3.04 RATIO Robert CaliHEMOGLOBIN [id number] 00:00:00* Test Item Value Reference Range Interpretation Comme nts HEMOGLOBIN A1c (test code = 90749) 5.6 % Robert Ambrose VirajCBC W/AUTO [id number] 00:00:00* Test Item Value Reference Range Interpretation [...] ABS NUCLEATED RBCS (test cod e = 16021) 0.00 K/UL Robert FullerH, THIRD [id number] 00:00:00* Test Item Value Reference Range Interpretation Comme [facility] TSH, THIRD GENERATION (test code = 2821) 1.310 UIU/ML Robert CaliVITAMIN [id number] 00:00:00* Test Item Value Reference Range Interpretation Comme [facility] VITAMIN B-12 (test code = 2840) 436 PG/ML Robert CaliFOLATE, [id number] 00:00:00* Test Item Value Reference Range Interpretation Comme rigoberto HEMATOCRIT (test code = 1004) 28.7 % FOLATE, RBC (test code = 2690) 1185 NG/ML Robert CaliURIC [id number] 00:00:00* Test Item Value Reference Range Interpretation Com[facility] URIC ACID (test code = 2233) 6.7 MG/DL Robert CaliVITAMIN D, 25 [id number] 00:00:00* Test Item Value Reference Range Interpretation Comme [facility] VITAMIN D, 25 [place] (test code = 4958) 13 NG/ML Robert CaliCOMPREHENSIVE METABOLIC [id number] 00:00:00* Test Item Value Reference Range Interpretation Comme nts GLUCOSE (test code = 2217) 103 MG/DL BUN (test code = 2208) 9 MG/DL CREATININE (test code = 2214) 0.72 MG/DL eGFR (2020 CKD-EPI) (test code = 44770) 106 ML/MIN/1.73 CALC BUN/CREAT (test code = [...] code = 2219) 26 U/L Robert CaliLIPID [id number] 00:00:00* Test Item Value Reference Range Interpretation Comme nts CHOLESTEROL (test code = 2210) 207 MG/DL TRIGLYCERIDES (test code = 2232) 130 MG/DL HDL CHOLESTEROL (test code = 2220) 45 MG/DL CALC LDL CHOL (test code = 2237) 137 MG/DL RISK RATIO LDL/HDL (test cod e = 2238) 3.04 RATIO Robert CaliHEMOGLOBIN [id number] 00:00:00* Test Item Value Reference Range Interpretation Comme nts HEMOGLOBIN A1c (test code = 20240) 5.6 % Robert CaliCBC W/AUTO [id number] 00:00:00* Test Item Value Reference Range Interpretation [...] ABS NUCLEATED RBCS (test cod e = 84465) 0.00 K/UL Robert FullerH, THIRD [id number] 00:00:00* Test Item Value Reference Range Interpretation Comme [facility] TSH, THIRD GENERATION (test code = 2821) 1.310 UIU/ML Robert CaliVITAMIN [id number] 00:00:00* Test Item Value Reference Range Interpretation Com[facility] VITAMIN B-12 (test code = 2840) 436 PG/ML Robert CaliFOLATE, [id number] 00:00:00* Test Item Value Reference Range Interpretation Comme nts HEMATOCRIT (test code = 1004) 28.7 % FOLATE, RBC (test code = 2690) 1185 NG/ML Robert CaliURIC [id number] 00:00:00* Test Item Value Reference Range Interpretation Comme nts URIC ACID (test code = 2233) 6.7 MG/DL Robert CaliVITAMIN D, 25 [id number] 00:00:00* Test Item Value Reference Range Interpretation Comme nts VITAMIN D, 25 [place] (test code = 4958) 13 NG/ML Robert CaliCOMPREHENSIVE METABOLIC [id number] 00:00:00* Test Item Value Reference Range Interpretation Comme nts GLUCOSE (test code = 2217) 103 MG/DL BUN (test code = 2208) 9 MG/DL CREATININE (test code = 2214) 0.72 MG/DL eGFR (2020 CKD-EPI) (test code = 31364) 106 ML/MIN/1.73 CALC BUN/CREAT (test code = [...] code = 2219) 26 U/L Robert CaliLIPID [id number] 00:00:00* Test Item Value Reference Range Interpretation Comme nts CHOLESTEROL (test code = 2210) 207 MG/DL TRIGLYCERIDES (test code = 2232) 130 MG/DL HDL CHOLESTEROL (test code = 2220) 45 MG/DL CALC LDL CHOL (test code = 2237) 137 MG/DL RISK RATIO LDL/HDL (test cod e = 2238) 3.04 RATIO Robert CaliHEMOGLOBIN [id number] 00:00:00* Test Item Value Reference Range Interpretation Comme nts HEMOGLOBIN A1c (test code = 57423) 5.6 % Robert CaliCBC W/AUTO [id number] 00:00:00* Test Item Value Reference Range Interpretation [...] ABS NUCLEATED RBCS (test cod e = 33054) 0.00 K/UL Robert Jimenez, THIRD [id number] 00:00:00* Test Item Value Reference Range Interpretation Comme nts TSH, THIRD GENERATION (test code = 2821) 1.310 UIU/ML Robert CaliVITAMIN [id number] 00:00:00* Test Item Value Reference Range Interpretation Comme nts VITAMIN B-12 (test code = 2840) 436 PG/ML Robert CaliFOLATE, [id number] 00:00:00* Test Item Value Reference Range Interpretation Comme nts HEMATOCRIT (test code = 1004) 28.7 % FOLATE, RBC (test code = 2690) 1185 NG/ML Robert CaliURIC [id number] 00:00:00* Test Item Value Reference Range Interpretation Comme nts URIC ACID (test code = 2233) 6.7 MG/DL Robert CaliVITAMIN D, 25 [id number] 00:00:00* Test Item Value Reference Range Interpretation Comme nts VITAMIN D, 25 [place] (test code = 4958) 13 NG/ML Robert CaliCOMPREHENSIVE METABOLIC [id number] 00:00:00* Test Item Value Reference Range Interpretation Comme nts GLUCOSE (test code = 2217) 103 MG/DL BUN (test code = 2208) 9 MG/DL CREATININE (test code = 2214) 0.72 MG/DL eGFR (2020 CKD-EPI) (test code = 79512) 106 ML/MIN/1.73 CALC BUN/CREAT (test code = [...] code = 2219) 26 U/L Robert CaliLIPID [id number] 00:00:00* Test Item Value Reference Range Interpretation Comme nts CHOLESTEROL (test code = 2210) 207 MG/DL TRIGLYCERIDES (test code = 2232) 130 MG/DL HDL CHOLESTEROL (test code = 2220) 45 MG/DL CALC LDL CHOL (test code = 2237) 137 MG/DL RISK RATIO LDL/HDL (test cod e = 2238) 3.04 RATIO Robert CaliHEMOGLOBIN [id number] 00:00:00* Test Item Value Reference Range Interpretation Comme nts HEMOGLOBIN A1c (test code = 73217) 5.6 % Robert CaliCBC W/AUTO [id number] 00:00:00* Test Item Value Reference Range Interpretation [...] ABS NUCLEATED RBCS (test cod e = 86406) 0.00 K/UL Robert Jimenez, THIRD [id number] 00:00:00* Test Item Value Reference Range Interpretation Comme nts TSH, THIRD GENERATION (test code = 2821) 1.310 UIU/ML Robert CaliVITAMIN [id number] 00:00:00* Test Item Value Reference Range Interpretation Comme rigoberto VITAMIN B-12 (test code = 2840) 436 PG/ML Robert CaliFOLATE, [id number] 00:00:00* Test Item Value Reference Range Interpretation Comme nts HEMATOCRIT (test code = 1004) 28.7 % FOLATE, RBC (test code = 2690) 1185 NG/ML Robert CaliURIC [id number] 00:00:00* Test Item Value Reference Range Interpretation Comme nts URIC ACID (test code = 2233) 6.7 MG/DL Robert CaliVITAMIN D, 25 [id number] 00:00:00* Test Item Value Reference Range Interpretation Comme nts VITAMIN D, 25 OH (test code = 4958) 13 NG/ML Robert CaliCOMPREHENSIVE METABOLIC [id number] 00:00:00* Test Item Value Reference Range Interpretation Comme nts GLUCOSE (test code = 2217) 103 MG/DL BUN (test code = 2208) 9 MG/DL CREATININE (test code = 2214) 0.72 MG/DL eGFR (2020 CKD-EPI) (test code = 03965) 106 ML/MIN/1.73 CALC BUN/CREAT (test code = [...] code = 2219) 26 U/L Robert CaliLIPID [id number] 00:00:00* Test Item Value Reference Range Interpretation Comme nts CHOLESTEROL (test code = 2210) 207 MG/DL TRIGLYCERIDES (test code = 2232) 130 MG/DL HDL CHOLESTEROL (test code = 2220) 45 MG/DL CALC LDL CHOL (test code = 2237) 137 MG/DL RISK RATIO LDL/HDL (test cod e = 2238) 3.04 RATIO Robert CaliHEMOGLOBIN [id number] 00:00:00* Test Item Value Reference Range Interpretation Comme nts HEMOGLOBIN A1c (test code = 49817) 5.6 % Robert CaliCBC W/AUTO [id number] 00:00:00* Test Item Value Reference Range Interpretation [...] ABS NUCLEATED RBCS (test cod e = 93634) 0.00 K/UL Robert FullerH, THIRD [id number] 00:00:00* Test Item Value Reference Range Interpretation Comme nts TSH, THIRD GENERATION (test code = 2821) 1.310 UIU/ML Robert CaliVITAMIN [id number] 00:00:00* Test Item Value Reference Range Interpretation Comme nts VITAMIN B-12 (test code = 2840) 436 PG/ML Robert CaliFOLATE, [id number] 00:00:00* Test Item Value Reference Range Interpretation Comme nts HEMATOCRIT (test code = 1004) 28.7 % FOLATE, RBC (test code = 2690) 1185 NG/ML Robert CaliURIC [id number] 00:00:00* Test Item Value Reference Range Interpretation Comme nts URIC ACID (test code = 2233) 6.7 MG/DL Robert CaliVITAMIN D, 25 [id number] 00:00:00* Test Item Value Reference Range Interpretation Comme nts VITAMIN D, 25 OH (test code = 4958) 13 NG/ML Robert CaliCOMPREHENSIVE METABOLIC [id number] 00:00:00* Test Item Value Reference Range Interpretation Comme nts GLUCOSE (test code = 2217) 103 MG/DL BUN (test code = 2208) 9 MG/DL CREATININE (test code = 2214) 0.72 MG/DL eGFR (2020 CKD-EPI) (test code = 31596) 106 ML/MIN/1.73 CALC BUN/CREAT (test code = [...] code = 2219) 26 U/L Robert CaliLIPID [id number] 00:00:00* Test Item Value Reference Range Interpretation Comme nts CHOLESTEROL (test code = 2210) 207 MG/DL TRIGLYCERIDES (test code = 2232) 130 MG/DL HDL CHOLESTEROL (test code = 2220) 45 MG/DL CALC LDL CHOL (test code = 2237) 137 MG/DL RISK RATIO LDL/HDL (test cod e = 2238) 3.04 RATIO Robert CaliHEMOGLOBIN [id number] 00:00:00* Test Item Value Reference Range Interpretation Comme rigoberto HEMOGLOBIN A1c (test code = 12439) 5.6 % Robert CaliCBC W/AUTO [id number] 00:00:00* Test Item Value Reference Range Interpretation [...] ABS NUCLEATED RBCS (test cod e = 50690) 0.00 K/UL Robert Ambrose Barbara, THIRD [id number] 00:00:00* Test Item Value Reference Range Interpretation Comme nts TSH, THIRD GENERATION (test code = 2821) 1.310 UIU/ML Robert Ambrose [id number] 20:05:22* Test Item Value Reference Range Interpretation Comme nts [place] (test code = 4557999650) 1.1 mmol/L 0.6-1.2 ZAINAB (test code = ZAINAB) Toxic Range: ? Greater than 1.2 mmol/L Lab Interpretation (test code = 12500-1) [facility]2023-01-04 20:05:22* Test Item Value Reference Range Interpretation Comme nts [place] (test code = 7040309573) 1.1 mmol/L 0.6-1.2 ZAINAB (test code = ZAINAB) Toxic Range: ? Greater than 1.2 mmol/L Lab Interpretation (test code = 37453-4) [address]01-04 20:05:22* Test Item Value Reference Range Interpretation Comme nts [place] (test code = 6655298640) 1.1 mmol/L 0.6-1.2 ZAINAB (test code = ZAINAB) Toxic Range: ? Greater than 1.2 mmol/L Lab Interpretation (test code = 17097-8) [address]01-04 20:05:22* Test Item Value Reference Range Interpretation Comme nts [place] (test code = 9549870073) 1.1 mmol/L 0.6-1.2 ZAINAB (test code = ZAINAB) Toxic Range: ? Greater than 1.2 mmol/L Lab Interpretation (test code = 33427-5) [place] [address]-01-04 20:05:22* Test Item Value Reference Range Interpretation Comme nts [place] (test code = 2388845332) 1.1 mmol/L 0.6-1.2 ZAINAB (test code = ZAINAB) Toxic Range: ? Greater than 1.2 mmol/L Lab Interpretation (test code = 66684-5) [facility]2023-01-04 20:05:22* Test Item Value Reference Range Interpretation Comme nts [place] (test code = 7052909193) 1.1 mmol/L 0.6-1.2 ZAINAB (test code = ZAINAB) Toxic Range: ? Greater than 1.2 mmol/L Lab Interpretation (test code = 20164-8) [address]01-04 20:05:22* Test Item Value Reference Range Interpretation Comme nts [place] (test code = 5799148442) 1.1 mmol/L 0.6-1.2 ZAINAB (test code = ZAINAB) Toxic Range: ? Greater than 1.2 mmol/L Lab Interpretation (test code = 23063-8) [place] [address]-01-04 20:05:22* Test Item Value Reference Range Interpretation Comme nts [place] (test code = 5974258317) 1.1 mmol/L 0.6-1.2 ZAINAB (test code = ZAINAB) Toxic Range: ? Greater than 1.2 mmol/L Lab Interpretation (test code = 21115-8) Normal [facility]2023-01-04 20:05:22* Test Item Value Reference Range Interpretation Comme nts [place] (test code = 2530005709) 1.1 mmol/L 0.6-1.2 ZAINAB (test code = ZAINAB) Toxic Range: ? Greater than 1.2 mmol/L Lab Interpretation (test code = 23574-0) Normal [facility]2023-01-04 20:05:22* Test Item Value Reference Range Interpretation Comme nts [place] (test code = 9825477166) 1.1 mmol/L 0.6-1.2 ZAINAB (test code = ZAINAB) Toxic Range: ? Greater than 1.2 mmol/L Lab Interpretation (test code = 80055-5) [facility] [id number] 00:00:00* Test Item Value Reference Range Interpretation Comme [facility] V[facility] D, 25 OH (test code = 4958) 17 NG/ML [facility] [id number] 00:00:00* Test Item Value Reference Range Interpretation [...] ABS NUCLEATED RBCS (test cod e = 12742) 0.00 K/UL Robert CaliHEMOGLOBIN [id number] 00:00:00* Test Item Value Reference Range Interpretation Comme nts HEMOGLOBIN A1c (test code = 04047) 5.5 % Robert CaliLIPID [id number] 00:00:00* Test Item Value Reference Range Interpretation Comme nts CHOLESTEROL (test code = 2210) 181 MG/DL TRIGLYCERIDES (test code = 2232) 81 MG/DL HDL CHOLESTEROL (test code = 2220) 46 MG/DL CALC LDL CHOL (test code = 2237) 117 MG/DL RISK RATIO LDL/HDL (test cod e = 2238) 2.54 RATIO Robert CaliCOMPREHENSIVE METABOLIC [id number] 00:00:00* Test Item Value Reference Range Interpretation Comme nts GLUCOSE (test code = 2217) 102 MG/DL BUN (test code = 2208) 10 MG/DL CREATININE (test code = 2214) 0.67 MG/DL eGFR AMER. (test cod e = 49791) 126 ML/MIN/1.73 eGFR NON- AMER. (test code = 38998) 108 ML/MIN/1.73 CALC BUN/CREAT (test code = [...] (test code = 2219) 18 U/L Robert [id number] 00:00:00* Test Item Value Reference Range Interpretation Comme [facility] TSH, THIRD GENERATION (test code = 2821) 1.140 UIU/ML Robert Ambrose LoraineVITAMIN D, 25 [id number] 00:00:00* Test Item Value Reference Range Interpretation Comme [facility] VITAMIN D, 25 OH (test code = 4958) 17 NG/ML Robert CaliCBC W/AUTO [id number] 00:00:00* Test Item Value Reference Range Interpretation Comme [facility] WBC (test code = 1001) 7.2 [...] ABS NUCLEATED RBCS (test cod e = 21045) 0.00 K/UL Robert CaliHEMOGLOBIN [id number] 00:00:00* Test Item Value Reference Range Interpretation Comme nts HEMOGLOBIN A1c (test code = 45761) 5.5 % Robert CaliLIPID [id number] 00:00:00* Test Item Value Reference Range Interpretation Comme nts CHOLESTEROL (test code = 2210) 181 MG/DL TRIGLYCERIDES (test code = 2232) 81 MG/DL HDL CHOLESTEROL (test code = 2220) 46 MG/DL CALC LDL CHOL (test code = 2237) 117 MG/DL RISK RATIO LDL/HDL (test cod e = 2238) 2.54 RATIO Robert CaliCOMPREHENSIVE METABOLIC [id number] 00:00:00* Test Item Value Reference Range Interpretation Comme nts GLUCOSE (test code = 2217) 102 MG/DL BUN (test code = 2208) 10 MG/DL CREATININE (test code = 2214) 0.67 MG/DL eGFR AMER. (test cod e = 44726) 126 ML/MIN/1.73 eGFR NON- AMER. (test code = 87566) 108 ML/MIN/1.73 CALC BUN/CREAT (test code = [...] (test code = 2219) 18 U/L Robert [id number] 00:00:00* Test Item Value Reference Range Interpretation Comme nts TSH, THIRD GENERATION (test code = 2821) 1.140 UIU/ML Robert CaliVITAMIN D, 25 [id number] 00:00:00* Test Item Value Reference Range Interpretation Comme nts VITAMIN D, 25 OH (test code = 4958) 17 NG/ML Robert CaliCBC W/AUTO [id number] 00:00:00* Test Item Value Reference Range Interpretation [...] ABS NUCLEATED RBCS (test cod e = 98004) 0.00 K/UL Robert CaliHEMOGLOBIN [id number] 00:00:00* Test Item Value Reference Range Interpretation Comme nts HEMOGLOBIN A1c (test code = 92189) 5.5 % Robert CaliLIPID [id number] 00:00:00* Test Item Value Reference Range Interpretation Comme nts CHOLESTEROL (test code = 2210) 181 MG/DL TRIGLYCERIDES (test code = 2232) 81 MG/DL HDL CHOLESTEROL (test code = 2220) 46 MG/DL CALC LDL CHOL (test code = 2237) 117 MG/DL RISK RATIO LDL/HDL (test cod e = 2238) 2.54 RATIO Robert CaliCOMPREHENSIVE METABOLIC [id number] 00:00:00* Test Item Value Reference Range Interpretation Comme nts GLUCOSE (test code = 2217) 102 MG/DL BUN (test code = 2208) 10 MG/DL CREATININE (test code = 2214) 0.67 MG/DL eGFR AMER. (test cod e = 83729) 126 ML/MIN/1.73 eGFR NON- AMER. (test code = 97460) 108 ML/MIN/1.73 CALC BUN/CREAT (test code = [...] (test code = 2219) 18 U/L Robert [id number] 00:00:00* Test Item Value Reference Range Interpretation Comme [facility] TSH, THIRD GENERATION (test code = 2821) 1.140 UIU/ML Robert CaliVITAMIN D, 25 [id number] 00:00:00* Test Item Value Reference Range Interpretation Comme [facility] VITAMIN D, 25 OH (test code = 4958) 17 NG/ML Robert CaliCBC W/AUTO [id number] 00:00:00* Test Item Value Reference Range Interpretation [...] ABS NUCLEATED RBCS (test cod e = 77731) 0.00 K/UL Robert CaliHEMOGLOBIN [id number] 00:00:00* Test Item Value Reference Range Interpretation Comme nts HEMOGLOBIN A1c (test code = 73364) 5.5 % Robert Ambrose AustinLIPID [id number] 00:00:00* Test Item Value Reference Range Interpretation Comme nts CHOLESTEROL (test code = 2210) 181 MG/DL TRIGLYCERIDES (test code = 2232) 81 MG/DL HDL CHOLESTEROL (test code = 2220) 46 MG/DL CALC LDL CHOL (test code = 2237) 117 MG/DL RISK RATIO LDL/HDL (test cod e = 2238) 2.54 RATIO Robert CaliCOMPREHENSIVE METABOLIC [id number] 00:00:00* Test Item Value Reference Range Interpretation Comme nts GLUCOSE (test code = 2217) 102 MG/DL BUN (test code = 2208) 10 MG/DL CREATININE (test code = 2214) 0.67 MG/DL eGFR AMER. (test cod e = ) 126 ML/MIN/1.73 eGFR NON- AMER. (test code = 28471) 108 ML/MIN/1.73 CALC BUN/CREAT (test code = [...] 4) 127 U/L AST (test code = 2218) 18 U/L ALT (test code = 2219) 18 U/L Robert [id number] 00:00:00* Test Item Value Reference Range Interpretation Comme [facility] TSH, THIRD GENERATION (test code = 2821) 1.140 UIU/ML Robert Ambrose VirajVITAMIN D, 25 [id number] 00:00:00* Test Item Value Reference Range Interpretation Comme [facility] VITAMIN D, 25 OH (test code = 4958) 17 NG/ML Robert Ambrose VirajCBC W/AUTO [id number] 00:00:00* Test Item Value Reference Range Interpretation [...] ABS NUCLEATED RBCS (test cod e = 26289) 0.00 K/UL Robert CaliHEMOGLOBIN [id number] 00:00:00* Test Item Value Reference Range Interpretation Comme nts HEMOGLOBIN A1c (test code = 27486) 5.5 % Robert CaliLIPID [id number] 00:00:00* Test Item Value Reference Range Interpretation Comme nts CHOLESTEROL (test code = 2210) 181 MG/DL TRIGLYCERIDES (test code = 2232) 81 MG/DL HDL CHOLESTEROL (test code = 2220) 46 MG/DL CALC LDL CHOL (test code = 2237) 117 MG/DL RISK RATIO LDL/HDL (test cod e = 2238) 2.54 RATIO Robert CaliCOMPREHENSIVE METABOLIC [id number] 00:00:00* Test Item Value Reference Range Interpretation Comme nts GLUCOSE (test code = 2217) 102 MG/DL BUN (test code = 2208) 10 MG/DL CREATININE (test code = 2214) 0.67 MG/DL eGFR AMER. (test cod e = 92011) 126 ML/MIN/1.73 eGFR NON- AMER. (test code = 28631) 108 ML/MIN/1.73 CALC BUN/CREAT (test code = [...] (test code = 2219) 18 U/L Robert [id number] 00:00:00* Test Item Value Reference Range Interpretation Comme [facility] TSH, THIRD GENERATION (test code = 2821) 1.140 UIU/ML Robert CaliVITAMIN D, 25 [id number] 00:00:00* Test Item Value Reference Range Interpretation Comme [facility] VITAMIN D, 25 OH (test code = 4958) 17 NG/ML Robert CaliCBC W/AUTO [id number] 00:00:00* Test Item Value Reference Range Interpretation Comme [facility] WBC (test code = 1001) 7.2 [...] ABS NUCLEATED RBCS (test cod e = 84053) 0.00 K/UL Robert CaliHEMOGLOBIN [id number] 00:00:00* Test Item Value Reference Range Interpretation Comme nts HEMOGLOBIN A1c (test code = 88169) 5.5 % Robert CaliLIPID [id number] 00:00:00* Test Item Value Reference Range Interpretation Comme nts CHOLESTEROL (test code = 2210) 181 MG/DL TRIGLYCERIDES (test code = 2232) 81 MG/DL HDL CHOLESTEROL (test code = 2220) 46 MG/DL CALC LDL CHOL (test code = 2237) 117 MG/DL RISK RATIO LDL/HDL (test cod e = 2238) 2.54 RATIO Robert CaliCOMPREHENSIVE METABOLIC [id number] 00:00:00* Test Item Value Reference Range Interpretation Comme nts GLUCOSE (test code = 2217) 102 MG/DL BUN (test code = 2208) 10 MG/DL CREATININE (test code = 2214) 0.67 MG/DL eGFR AMER. (test cod e = 67417) 126 ML/MIN/1.73 eGFR NON- AMER. (test code = 68360) 108 ML/MIN/1.73 CALC BUN/CREAT (test code = [...] ALT (test code = 2219) 18 U/L Robret [id number] 00:00:00* Test Item Value Reference Range Interpretation Comme nts TSH, THIRD GENERATION (test code = 2821) 1.140 UIU/ML Robert CaliVITAMIN D, 25 [id number] 00:00:00* Test Item Value Reference Range Interpretation Comme nts VITAMIN D, 25 OH (test code = 4958) 17 NG/ML Robert CaliCBC W/AUTO [id number] 00:00:00* Test Item Value Reference Range Interpretation [...] ABS NUCLEATED RBCS (test cod e = 38912) 0.00 K/UL Robert CaliHEMOGLOBIN [id number] 00:00:00* Test Item Value Reference Range Interpretation Comme rigoberto HEMOGLOBIN A1c (test code = 84258) 5.5 % Robert CaliLIPID [id number] 00:00:00* Test Item Value Reference Range Interpretation Comme nts CHOLESTEROL (test code = 2210) 181 MG/DL TRIGLYCERIDES (test code = 2232) 81 MG/DL HDL CHOLESTEROL (test code = 2220) 46 MG/DL CALC LDL CHOL (test code = 2237) 117 MG/DL RISK RATIO LDL/HDL (test cod e = 2238) 2.54 RATIO oRbert CaliCOMPREHENSIVE METABOLIC [id number] 00:00:00* Test Item Value Reference Range Interpretation Comme nts GLUCOSE (test code = 2217) 102 MG/DL BUN (test code = 2208) 10 MG/DL CREATININE (test code = 2214) 0.67 MG/DL eGFR AMER. (test cod e = 46667) 126 ML/MIN/1.73 eGFR NON- AMER. (test code = 92301) 108 ML/MIN/1.73 CALC BUN/CREAT (test code = [...] (test code = 2219) 18 U/L Robert [id number] 00:00:00* Test Item Value Reference Range Interpretation Comme nts TSH, THIRD GENERATION (test code = 2821) 1.140 UIU/ML Robert CaliLIPID PROFILE (CORONARY RISK)2018-07-20 07:27:00* Test Item Value Reference Range Interpretation Comme [facility] TRIGLYCERIDES (test code = TRIG) 143 [...] mg/dL VERY HIGH.........>/= 190 mg/dL Comments to Pressurization Mechanic: ADD TO AM LABSLIPID PROFILE (CORONARY RISK)2018-07-20 07:17:00* Test Item Value Reference Range Interpretation Comme [facility] TRIGLYCERIDES (test code = TRIG) 143 MG/DL TRIGLYCERIDES REFERENCE RANGE:Normal: <150 mg/dLBorderline High: 150-199 mg/dLHigh: 200-499 mg/dLVery High: >=500 mg/dL CHOLESTEROL (test code = CHOL) 190 MG/DL <200 HDL CHOLESTEROL (test code = HDL) 41 MG/DL 40-59 N LIPOPROTEIN LDL (test code = LDL) MG/DL 0-99 Comments to Pressurization Mechanic: ADD TO AM LABSPROTHROMBIN [id number] 06:24:00* Test Item Value Reference Range Interpretation Comme [facility] PROTHROMBIN TIME PATIENT (test code = PTP) [...] systemic embolism. 3.0 - 4.5 Comments to Pressurization Mechanic: NURSE WILL BRING SPECIMEN TO LABPTT ACTIVATED 2018-07-20 06:24:00* Test Item Value Reference Range Interpretation Comme nts PTT ACTIVATED (test code = APTT) 29.3 SECONDS 22.0-33.0 N Comments to Pressurization Mechanic: NURSE WILL BRING SPECIMEN TO LABBASI METABOLIC PANEL 2018-07-20 06:13:00* Test Item Value [...] CA) 9.6 MG/DL 8.4-10.2 N Comments to Pressurization Mechanic: NURSE WILL BRING SPECIMEN TO LAB Comments to Pressurization Mechanic: NURSE WILL BRING SPECIMEN TO [id number] 06:13:00* Test Item Value Reference Range Interpretation Comme nts MAGNESIUM (test code = MAG) 2.2 MG/DL 1.6-2.3 N Comments to Pressurization Mechanic: NURSE WILL BRING SPECIMEN TO LAB Comments to Pressurization Mechanic: NURSE WILL BRING SPECIMEN TO LABCBC W/AUTO [id number] 06:02:00 * Test Item Value Reference Range [...] BRAIN W/O & W/DYEMRI BRAIN W/O & W/DYE Notes Date/Time Note Provider Source Robert Willson [facility]2025-02-05 00:00:00 Robert Willson [facility]2024-12-18 00:00:00 Robert Willson [facility]2024-12-06 00:00:00 Robert Willson [facility]2024-11-22 00:00:00 Robert Willson [facility]2024-10-29 00:00:00 Robert Willson [facility]2024-10-15 00:00:00 Robert Anamika [facility]2024-06-26 15:01:26 Order for Monoferric Infusion was faxed to [facility], fax # fax- [phone]. Fax confirmed as received. I called patient to inform her that order was sent. Kath Westbrook [facility] HospitalNzopyp9967-85-01 12:08:22 I ordered IV iron if you dont mind faxing it. Thank you! [place] 622314-06-20 15:54:54 Yes if you can send over the last infusion order we sent again to [facility]. Otherwise we can do it when in back next week [place] [address]-06-17 15:40:16 Patient called stating that her GI provider said he would order an Iron infusion for patient one more time, but that she would have to follow-up with hematology from now on for iron infusion orders. Patient would like to have the order placed and the infusion done at [facility] as before. There is no mention of this in BAKARI note. Kath Westbrook RNTony [place] 622314-05-20 12:20:48 I called patient and explained that [...] with Dr. Cordero on 07/26/23. Kath Westbrook [facility]Rhqzyu6127-32-68 10:35:15 Pt is requesting orders for an [...] constantly declining. Pt was life flight to [facility] recently due to a stroke. Pls advise. Vega [facility]Av[facility] HospitalHplaup8568-91-26 02:18:19 Rn went over poc and discharge teaching with pt prior to departure. Iv discontinued and discharge packet went over with pt. Pt verbalizes understanding of education and medications. Pt states that no belogings were left in room. Pt and family departed to [facility]. Pt using ed wheelchair Lizandro Bah [facility] HospitalQwbsyw0802-84-03 01:38:45 Patient currently sitting up, drinking water. Patient family to assist patient in changing clothes and then to perform walk test. Patient pending walk test and results at this time. [facility] Kiley Darling [facility] HospitalLqvvjc0951-14-20 01:29:14 Dr. Pabon at bedside [facility]2024-04-26 00:00:00 Patient currently resting in ED stretcher, accompanied by visitors at this time. Patient awaiting clinical sobriety for d/c. NAD noted, VSS, RR e/u, bed locked in lowest position with side rails elevated x 2. Patient family denies additional needs at this time, will notify staff if needs anything. [place] 364284-04-25 22:44:51 Pt straight cath x2 RN per [...] assess and tx per plan of care [facility] Angela Larsen [facility] HospitalDzsadg1753-59-39 22:30:00 Report taken from Armand PATEL. Patient [...] VSS, RR e/u. See neuro focused assessment. [place] [address]-04-25 22:06:00 STROKE ALERT CANCELLED per neuro Paged out @ 2206 [place] [address]-04-25 22:04:19 Neuro resident verbalizes he is canceling the stroke alert. [facility] Puneet Hussein RNMorgan [place] 17257-04-25 22:04:00 Stroke orders cancelled per neurology faculty and Dr. Pabon at this time. [place] [address]-04-25 21:54:[address] Reflexes intact, will not follow commands or speak, however. [place] 364284-04-25 21:40:[address] via stretcher, pt connected to serial VS and cardiac monitoring. Neuro resident in CT In CT, Pt appeared to be selectively following commands and opening eyes. Pt was addressed in both Egyptian and Latvian, yet did not answer questions verbally nor with any head shakes/ nods. Pt resp e/u on RA w equal chest rise and fall. Skin warm dry approp tone. When pt opened eyes on command, PERRLA 4mm. Labs drawn. [place] 364284-04-25 21:39:01 Shivani Schuler is a 47 year [...] pain, VSWNL, NAD noted. Pt to CT [place] 364284-04-25 21:35:00 Shivani Schuler is a 47 year old female who presents from home([place]) via [facility] after pt's daughter heard [...] back and forth and squinting eyes shut. 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 The RODEO RIDER are patent bilaterally. No sizable posterior communicating [...] The superior cerebellar arteries are patent. The RODEO RIDER are patent bilaterally. No sizable posterior communicating [...] I 0.003 <=0.034 ng/mL LITHIUM - Normal [place] 0.6 0.6 - 1.2 mmol/L ETHANOL ALCOHOL [...] (IMMUNOASSAY) - COMPREHENSIVE DRUG SCREEN W/O REFLEX [place] O2 Nasal Cannula Orders Placed This Encounter [...] Pabon DO 06/08/23 0147 [facility] ST[facility]FFAv[facility] HospitalCopkaj9121-88-81 10:50:05 I called patient to ascertain what medication she is referring to that was Rxd but not received. No answer, I LVM with my call back number. Kath Westbrook [facility] HospitalWophot9760-39-54 11:48:54 Gastroenterolgy appt has been placed. Jessica Pang [facility] HospitalYydgnz3408-35-39 16:55:45 I called patient to follow-up from [...] Dr. Boston for these symptoms. Kath Westbrook [facility] HospitalKgavst0844-38-54 16:58:43 Pt called about her Iron infusion needed. GI provider requested patient's PCP follow up with this request. At initial visit, patient's GI provider did order Iron Infusion: 11/23/22: Order for MONOFERRIC infusion sent to [facility], fax # [phone]. Fax was confirmed as received. The above [...] medications that can help her. Kath Westbrook [facility] HospitalQekhra4852-96-17 09:11:36 I called patient to relay her GI provider's msg. Patient understands and asked if I could send last order for iron infusion to show her PCP so it can be done thru their office. Last order was sent to patient's MyChart as per her request. NEL Westbrook [facility] HospitalHzxqbs7374-00-58 08:51:07 Antony [place] I would but I think her PCP should be able to do this and because of previous issues with the order will let them handle it. It should be possible for PCP to do it if they put in a little effort [facility]2024-01-25 16:20:43 I called patient who stated she received a chart msg from Dr. Cordero stating her iron was low and recommended she take infusion. Patient needs another referral for the iron infusion at [facility]. Patient stated her PCP has no clue on how to order infusion. Patient states GI provider did put in the last order that was done at [facility]. 11/23/22: Order for MONOFERRIC infusion sent to [facility], fax # [phone]. Fax was confirmed as received. NEL Westbrook [facility] HospitalNraxju9953-06-67 15:42:27 Shivani Schuler is a 47 year old female Pt is calling requesting for referral to [facility] in regards to getting iron infusion done. Please call the pt to discuss. Please advise. NEL ScottAvita Health System [facility] HospitalGcbxpe1226-20-52 10:30:00 Images from the original note were not included. Venipuncture collection performed by clean technique on the right anticubitus and back of left hand. Total of 2 attempts were made. Slight pressure and a bandage/dressing were applied to the site(s). The patient experienced no complications. The following specimens were processed according to instructions and sent to [facility] laboratories per lab order on 02/15/2023 : LT BLUE SST 1 RED LAV PPT DK GREEN (LiHep) DK GREEN (SodH) SUE DK BLUE (K2) DK BLUE (S) ACD Blood Culture NIPT/NTD [place] 385453-12-01 21:52:03 Dr. Cordero, Please call patient and see how we can help. ED precautions if worsening symptoms. Dominic IE [facility] IM-GASTRO[facility]2023-09-07 08:30:00 Images from the original note were not included. Venipuncture collection performed by clean technique on the left anticubitus. Total of 1 attempts were made. Slight pressure and a bandage/dressing were applied to the site(s). The patient experienced no complications. The following specimens were processed according to instructions and sent to [facility] laboratories LT BLUE Lt Green SST 2 RED LAV PPT DK GREEN (L) DK GREEN (S)/// Fibrosure set BLUE,SST & LAV SUE DK BLUE (K2) DK BLUE (S) ACD RST BLOOD CULTURE NIPT or ALLOSURE VERIFYNOW URINE URINE CULTURE APTIMA URINE STOOL Monogram Z plasma preservative tube (call lab for tube)ARUP Vasoactive Intestinal Peptide (call lab for tube)ARUP Samantha RosalesAv[facility] [id number] 10:15:00 Images from the original note were not included. Venipuncture collection performed by clean technique on the left anticubitus. Total of 1 attempts were made. Slight pressure and a bandage/dressing were applied to the site(s). The patient experienced no complications. The following specimens were processed according to instructions and sent to [facility] per lab order on 10/05/2022: LT BLUE SST 1 RED LAV 2 PPT DK GREEN (LiHep) DK GREEN (SodH) SUE DK BLUE (K2) DK BLUE (S) ACD Blood Culture NIPT/NTD [facility] [id number] [place] [address] PATIENT NAME: SHIVANI SCHULER ADMIT DATE: 07/20/18 ACCOUNT NO: [id number] ROOM NO: AGE: 43 REPORT TYPE: CARDIAC CATHETERIZATION REPORT SEX: F ADMITTING PHYSICIAN: ATTENDING PHYSICIAN:Thea Harper MD PROCEDURE DATE: 07/20/2018 PROBLEM MANAGER: Thea Harper MD TITLE OF THE PROCEDURE: [...] femoral artery area for local anesthesia. A 6-Portuguese sheath was placed in the right common [...] By: Thea Harper MD WT: CATH:ADRIANA/KIAN/RIGOBERTO Conf#: [id number]/DID#: [id number] Authenticated by Thea Harper MD On 07/20/2018 08:15:22 AM at 0815 PATIENT NAME: SHIVANI CSHULER [id number] [place] [address] PATIENT NAME: SHIVANI SCHULER ADMIT DATE: 07/20/18 ACCOUNT NO: [id number] ROOM NO: AGE: 43 REPORT TYPE: ELECTROCARDIOGRAM SEX: F ADMITTING PHYSICIAN: ATTENDING PHYSICIAN:Thea Harper MD Order: [id number] Test Reason : CAD Test Date/Time Stamp: [...] HARPER at 0921 PATIENT NAME: SHIVANI SCHULER [id number] [place] [address] PATIENT NAME: SHIVANI SCHULER ADMIT DATE: 07/20/18 ACCOUNT NO: [id number] ROOM NO: AGE: 43 REPORT TYPE: HISTORY AND PHYSICAL SEX: F ADMITTING PHYSICIAN: ATTENDING PHYSICIAN:Thea Harper MD ADMISSION DATE: 07/20/2018 PROBLEM MANAGER: Thea Harper MD REASON FOR ADMISSION: Chest [...] By: Thea Harper MD WT: HP:TRAVIS/KIAN/RIGOBERTO Conf#: [id number]/DID#: [id number] Authenticated by Thea Harper MD On 07/25/2018 07:20:46 AM at 0721 PATIENT NAME: SHIVANI SCHULER
--- NOTE | 2024-04-17 11:55 | RAD REPORT ---
EXAMINATION: Stone Protocol CLINICAL INDICATION: Abdominal pain TECHNIQUE: CT abdomen and pelvis was performed, without IV contrast, as per department protocol. Oral contrast not given. Axial, sagittal and coronal reconstructions were obtained. One or more of the following dose reduction techniques were used: Automated exposure control, adjustment of the mA and k V according to the patient size, and iterative reconstruction. Unless otherwise specified, incidental findings do not require dedicated imaging follow-up. COMPARISON: 2023 FINDINGS: The lack of intravenous and oral contrast limits the sensitivity of this exam for evaluation of solid visceral organs, vascular structures, and bowel A renal calculus not seen. No ureteral calculus. A bladder calculus not noted. No hydronephrosis Liver, spleen, pancreas and adrenals grossly normal No evidence of diverticulitis. No adnexal mass.. Cholecystectomy. Mild diastases rectus abdominis muscles. Appendectomy IMPRESSION: Negative for a genitourinary calculus
[2024-04-17 12:26] LABS: Specific Gravity 1.028 (1.005-1.030)
[2024-04-17 12:27] LABS: Specific Gravity 1.028 (1.005-1.030); Sqamous Epithelial <5 /HPF (None Seen); Urine Bacteria None Seen /HPF (<20); Urine Bilirubin NEGATIVE (Negative); Urine Blood 3+ (Negative); Urine Clarity Turbid (Clear); Urine Color Yellow (Yellow); Urine Culture Reflex Order NOT NEEDED; Urine Glucose NEGATIVE (Negative); Urine Ketones NEGATIVE (Negative); Urine Microscopic Reflex YN ORDER UMIC; Urine Mucus 2+ /HPF (None Seen); Urine Nitrite NEGATIVE (Negative); Urine Protein TRACE (Negative); Urine RBC >50 /HPF (None Seen); Urine Urobilinogen Normal (Normal); Urine WBC <5 /HPF (<5); Urine pH 5.5 (5.0-7.0)
[2024-04-17 13:24] LABS: Absolute Eosinophils 0.3 K/uL (0-0.5); Absolute Lymphocytes (CBC) 1.6 K/uL (0.7-4.9); Absolute Monocytes 0.5 K/uL (0.1-1.3); Absolute Neutrophil 5.9 K/uL (1.8-8.0); Basophils % 0.5 % (0-1.3); Eosinophils % 3.3 % (0-4.4); Hemoglobin 12.8 g/dL (12.0-15.0); Lymphocytes % 18.9 % (15.3-44.8); MCH 27.3 pg (27.0-35.0); MCHC 33.7 g/dL (32.0-36.0); MPV 9.6 fL (7.6-11.3); Monocytes % 6.4 % (3.3-12.3); Neutrophils % 70.9 % (41.7-73.7); Platelets 231 thou/uL (152-406); RBC Red Blood Cell Count 4.69 M/uL (3.86-4.86)
[2024-04-17 13:33] LABS: Albumin 3.4 g/dL (3.4-5.0); Anion Gap 7.1 mEq/L (5.0-15.0); Bilirubin Total 0.4 mg/dL (0.2-1.0); Globulin 3.5 g/dL (2.3-3.5); Potassium 4.1 mEq/L (3.5-5.1); Protein, Total 6.9 g/dL (6.4-8.2)
[2024-04-17] MEDS ORDERED: KETOROLAC 30 MG/ML INJ ONE (13:44)
[2024-04-17] MEDS ORDERED: CEFTRIAXONE 1000 MG/VIAL ONE (13:44)
[2024-04-17] MEDS ORDERED: ONDANSETRON 4 MG/2 ML VIAL ONE (13:44)
[2024-04-17] MEDS ORDERED: FAMOTIDINE 20 MG/2 ML VIAL IV ONE (13:44)
[2024-04-17] MEDS ORDERED: NA CHLORIDE 0.9% 1,000 ML ONE (13:45)
--- NOTE | 2024-04-17 14:08 | ER ---
Nurse's Notes [facility] Name: Shivani Lagunas Age: 48 yrs Sex: Female : 1975 Arrival Date: 04/17/2024 Time: 10:30 Bed 11 Private MD: Diagnosis: Hematuria, unspecified;Dysuria Presentation: 04/17 11:21 Chief complaint: Chief complaint: Burning with urination and suprapubic pain x 1 week. hb 11:22 Coronavirus screen: At this time, the client does not indicate any symptoms associated hb with coronavirus-19. Ebola Screen: No symptoms or risks identified at this time. Initial Sepsis Screen: Does the patient meet any 2 criteria? No. Patient's initial sepsis screen is negative. Does the patient have a suspected source of infection? No. Patient's initial sepsis screen is negative. Risk Assessment: Do you want to hurt yourself or someone else? Patient reports no desire to harm self or others. Onset of symptoms was April 10, 2024. 11:22 Method Of Arrival: Ambulatory hb 11:22 Acuity: ALICIA 3 hb Triage Assessment: 14:20 General: Appears in no apparent distress. Behavior is calm, cooperative. Pain: iw Complains of pain in left low back and left mid back. GI: Abdomen is non-distended, Reports lower abdominal pain, upper abdominal pain. Historical: - Allergies: 11:23 Sulfa (Sulfonamide Antibiotics); hb - PMHx: 11:23 Anemia; Bipolar disorder; Congestive heart failure; Hypertensive disorder; hb Schizophrenia; - PSHx: 11:23 Appendectomy; section; Cholecystectomy; hb - Immunization history:: Adult Immunizations up to date. - Infectious Disease History:: Denies. - Social history:: Smoking status: Patient denies any tobacco usage or history of. Screenin:41 [facility] ED Fall Risk Assessment (Adult) History of falling in the last 3 months, iw including since admission No falls in past 3 months (0 pts) Confusion or Disorientation No (0 pts) Intoxicated or Sedated No (0 pts) Impaired Gait No (0 pts) Mobility Assist Device Used No (0 pt) Altered Elimination No (0 pt) Score/Fall Risk Level 0 - 2 = Low Risk Oriented to surroundings, Maintained a safe environment. Abuse screen: Denies threats or abuse. Denies injuries from another. Nutritional screening: No deficits noted. Tuberculosis screening: No symptoms or risk factors identified. Assessment: 14:41 Reassessment: Patient appears in no apparent distress at this time. Patient and/or iw family updated on plan of care and expected duration. Pain level reassessed. Patient is alert, oriented x 3, equal unlabored respirations, skin warm/dry/pink. Patient states feeling better. Patient states symptoms have improved. Vital Signs: 11:22 BP 129 / 76; Pulse 70; Resp 16; Temp 98.1(O); Pulse Ox 100% on R/A; Weight 94.8 kg; hb Height 5 ft. 6 in. ; Pain 8/10; 11:22 Body Mass Index 33.73 (94.80 kg, 167.64 cm) hb 11:22 Pain Scale: Adult hb ED Course: 10:39 Patient arrived in ED. al6 10:45 Bal Dowling MD is Attending Physician. lori 11:23 Triage completed. hb 11:23 Arm band placed on. hb 11:39 CT Stone Protocol In Process Unspecified. EDMS 13:12 Initial lab(s) drawn, by tx, sent to lab. Inserted saline lock: 20 gauge in right zm antecubital area, using aseptic technique. Blood collected. Flushed with 10 mL NS. 13:13 CBC with Diff Sent. zm 13:13 CMP Sent. zm 13:13 Lipase Sent. zm 13:41 Mayelin Archibald, RN is Primary Nurse. iw 14:08 Christiano Soliz MD is Referral Physician. lori 14:41 No provider procedures requiring assistance completed. IV discontinued, intact, iw bleeding controlled, No redness/swelling at site. Pressure dressing applied. Administered Medications: 14:32 Drug: Ketorolac IVP 30 mg IVP once Route: IVP; Site: right antecubital; iw 14:40 Follow up: Response: No adverse reaction iw 14:32 Drug: Rocephin IV 1 grams IV at per protocol once; Given slow IV push per pharmacy iw instructions Route: IV; Rate: per protocol; Site: right antecubital; 14:35 Follow up: IV Status: Completed infusion iw 14:32 Drug: Phenazopyridine PO 200 mg PO once Route: PO; iw 14:40 Follow up: Response: No adverse reaction iw 14:33 Drug: Famotidine IVP 20 mg IVP once; dilute with 10 mL 0.9% NaCl; give over 2 minutes iw Route: IVP; Site: right antecubital; 14:33 Drug: Ondansetron IVP 4 mg IVP once; over 2 minutes Route: IVP; Site: right antecubital;iw 14:33 Not Given (Patient Refused): ns 0.9% 1000 ml IV at 1 bolus Per protocol; to be given as iw a bolus over 60 minutes Medication: 14:41 VIS not applicable for this client. iw Outcome: 14:07 Discharge ordered by . lori 14:41 Discharged to home ambulatory, iw 14:41 Condition: good 14:41 Discharge instructions given to patient, Instructed on discharge instructions, follow up and referral plans. medication usage, Demonstrated understanding of instructions, follow-up care, medications, Prescriptions given X 3, 14:42 Patient left the ED. iw Signatures: Dispatcher [employer] EDMS Bal Dowling MD MD cha Williams, Irene, RN RN Jacqueline Pearson RN RN hb Martinez, Zaina zm Landin, Alissa al6 Corrections: (The following items were deleted from the chart) 11:23 11:21 Chief complaint: hb hb
--- NOTE | 2024-04-17 14:08 | EDPHYS ---
Physician Documentation [facility] Name: Shivani Lagunas Age: 48 yrs Sex: Female : 1975 Arrival Date: 04/17/2024 Time: 10:30 Bed 11 Private MD: Bal Coombs HPI: 04/17 13:30 This 48 yrs old Female presents to ER via Ambulatory with complaints of lori Possible Kidney Stone. 13:30 The patient complains of pain in the left mid back. The pain radiates to the left low lori back and left mid back. Onset: The symptoms/episode began/occurred 3 day(s) ago. Modifying factors: The symptoms are alleviated by nothing. the symptoms are aggravated by nothing. The patient presents with urinary symptoms, dysuria, frequency. Historical: - Allergies: 11:23 Sulfa (Sulfonamide Antibiotics); hb - PMHx: 11:23 Anemia; Bipolar disorder; Congestive heart failure; Hypertensive disorder; hb Schizophrenia; - PSHx: 11:23 Appendectomy; section; Cholecystectomy; hb - Immunization history:: Adult Immunizations up to date. - Infectious Disease History:: Denies. - Social history:: Smoking status: Patient denies any tobacco usage or history of. ROS: 13:55 Constitutional: Negative for fever, chills, and weight loss, Eyes: Negative for injury, lori pain, redness, and discharge, ENT: Negative for injury, pain, and discharge, Neck: Negative for injury, pain, and swelling, Cardiovascular: Negative for chest pain, palpitations, and edema, Respiratory: Negative for shortness of breath, cough, wheezing, and pleuritic chest pain, Abdomen/GI: Negative for abdominal pain, nausea, vomiting, diarrhea, and constipation, Back: Negative for injury and pain, MS/Extremity: Negative for injury and deformity, Skin: Negative for injury, rash, and discoloration, Neuro: Negative for headache, weakness, numbness, tingling, and seizure, Psych: Negative for depression, anxiety, suicide ideation, homicidal ideation, and hallucinations, Allergy/Immunology: Negative for hives, rash, and allergies, Endocrine: Negative for neck swelling, polydipsia, polyuria, polyphagia, and marked weight changes, Hematologic/Lymphatic: Negative for swollen nodes, abnormal bleeding, and unusual bruising, 13:55 : Positive for urinary symptoms, urinary frequency, small amounts, hematuria, burning with urination, vaginal bleeding, Exam: 13:55 Constitutional: This is a well developed, well nourished patient who is awake, alert, lori and in no acute distress. Head/Face: Normocephalic, atraumatic. Eyes: Pupils equal round and reactive to light, extra-ocular motions intact. Lids and lashes normal. Conjunctiva and sclera are non-icteric and not injected. Cornea within normal limits. Periorbital areas with no swelling, redness, or edema. ENT: Nares patent. No nasal discharge, no septal abnormalities noted. Tympanic membranes are normal and external auditory canals are clear. Oropharynx with no redness, swelling, or masses, exudates, or evidence of obstruction, uvula midline. Mucous membranes moist. Neck: Trachea midline, no thyromegaly or masses palpated, and no cervical lymphadenopathy. Supple, full range of motion without nuchal rigidity, or vertebral point tenderness. No Meningismus. Chest/axilla: Normal chest wall appearance and motion. Nontender with no deformity. No lesions are appreciated. Cardiovascular: Regular rate and rhythm with a normal S1 and S2. No gallops, murmurs, or rubs. Normal PMI, no JVD. No pulse deficits. Respiratory: Lungs have equal breath sounds bilaterally, clear to auscultation and percussion. No rales, rhonchi or wheezes noted. No increased work of breathing, no retractions or nasal flaring. Abdomen/GI: Soft, non-tender, with normal bowel sounds. No distension or tympany. No guarding or rebound. No evidence of tenderness throughout. Back: No spinal tenderness. No costovertebral tenderness. Full range of motion. Skin: Warm, dry with normal turgor. Normal color with no rashes, no lesions, and no evidence of cellulitis. MS/ Extremity: Pulses equal, no cyanosis. Neurovascular intact. Full, normal range of motion., bilateral aka Neuro: Awake and alert, GCS 15, oriented to person, place, time, and situation. Cranial nerves II-XII grossly intact. Motor strength 5/5 in all extremities. Sensory grossly intact. Cerebellar exam normal. Normal gait. Psych: Awake, alert, with orientation to person, place and time. Behavior, mood, and affect are within normal limits. 13:55 : CVA tenderness, is absent, Pelvic Exam: is not necessary for this patient, External exam: is normal, no appreciated Bartholin's cyst, no erythema, not excoriated, no evidence of foreign body, no lesions, no ulcerations, no warts seen, Bladder: is normal, Vital Signs: 11:22 BP 129 / 76; Pulse 70; Resp 16; Temp 98.1(O); Pulse Ox 100% on R/A; Weight 94.8 kg; hb Height 5 ft. 6 in. ; Pain 8/10; 11:22 Body Mass Index 33.73 (94.80 kg, 167.64 cm) hb 11:22 Pain Scale: Adult hb MDM: 10:45 Medical Screening Exam initiated lori 14:05 Differential diagnosis: UTI, kidney stone. Data reviewed: vital signs, nurses notes, [facility] lab test result(s), radiologic studies, CT scan. Consideration of Admission/Observation Escalation of care including admission/observation considered. I considered the following discharge prescriptions or medication management in the emergency department Medications were administered in the Emergency Department. See MAR. Independent interpretation of the following test(s) in the Emergency Department CT Scan: My interpretation is ct stone. Historians other than the Patient: pt well informed. Care significantly affected by the following chronic conditions: Hypertension, Congestive Heart Failure, bipolar, schizo. Counseling: I had a detailed discussion with the patient and/or guardian regarding the historical points, exam findings, and any diagnostic results supporting the discharge/admit diagnosis, lab results, radiology results, the need for outpatient follow up, for definitive care, a family practitioner, a urologist. 04/17 10:46 Order name: CBC with Diff; Complete Time: 13:54 [facility] 04/17 10:46 Order name: CMP; Complete Time: 13:54 [facility] 04/17 10:46 Order name: Lipase; Complete Time: 13:54 [facility] 04/17 10:46 Order name: Test, Urine; Complete Time: 13:21 [facility] 04/17 10:46 Order name: Urinalysis w/ reflexes; Complete Time: 13:21 [facility] 04/17 10:46 Order name: CT Stone Protocol; Complete Time: 13:21 [facility] 04/17 10:46 Order name: IV Saline Lock; Complete Time: 13:13 [facility] 04/17 10:46 Order name: Labs collected and sent; Complete Time: 13:13 lori Administered Medications: 14:32 Drug: Ketorolac IVP 30 mg IVP once Route: IVP; Site: right antecubital; iw 14:40 Follow up: Response: No adverse reaction iw 14:32 Drug: Rocephin IV 1 grams IV at per protocol once; Given slow IV push per pharmacy iw instructions Route: IV; Rate: per protocol; Site: right antecubital; 14:35 Follow up: IV Status: Completed infusion iw 14:32 Drug: Phenazopyridine PO 200 mg PO once Route: PO; iw 14:40 Follow up: Response: No adverse reaction iw 14:33 Drug: Famotidine IVP 20 mg IVP once; dilute with 10 mL 0.9% NaCl; give over 2 minutes iw Route: IVP; Site: right antecubital; 14:33 Drug: Ondansetron IVP 4 mg IVP once; over 2 minutes Route: IVP; Site: right antecubital;iw 14:33 Not Given (Patient Refused): ns 0.9% 1000 ml IV at 1 bolus Per protocol; to be given as iw a bolus over 60 minutes Disposition Summary: 04/17/24 14:07 Discharge Ordered Notes: Location: Home lori Problem: new lori Symptoms: have improved lori Condition: Stable lori Diagnosis - Hematuria, unspecified lori - Dysuria lori Followup: lori - With: Private Physician - When: 2 - 3 days - Reason: Recheck today's complaints, Continuance of care, Re-evaluation by your physician Followup: lori - With: Christiano Soliz MD - When: 2 - 3 days - Reason: Recheck today's complaints, Re-evaluation by your physician Discharge Instructions: - Discharge Summary Sheet lori - Dysuria lori - Hematuria, Adult lori - How to Take a Sitz Bath lori Forms: - Medication Reconciliation Form lori - Antibiotic Education lori - Prescription Opioid Use lori - Patient Portal Instructions [facility] - Leadership Thank You Letter [facility] Prescriptions: - Cipro 250 mg Oral tablet - take 1 tablet ORAL route every 12 hours; 14 tablet; Refills: 0, Product lori Selection Permitted - Ibuprofen 600 mg Oral tablet - take 1 tablet ORAL route every 8 hours As needed take with food; 21 tablet; lori Refills: 0, Product Selection Permitted - Pyridium 200 mg Oral Tablet - take 1 tablet ORAL route every 8 hours for 3 days; 9 tablet; Refills: 0, lori Product Selection Permitted Signatures: Dispatcher [employer] EDMS Bal Dowling MD MD cha Williams, Irene, RN RN Jacqueline Pearson RN RN Corrections: (The following items were deleted from the chart) 10:48 10:47 CBC+H.LAB.BRZ ordered. EDMS EDMS 10:48 10:48 COMPREHENSIVE METABOLIC PANEL+C.LAB.BRZ ordered. EDMS EDMS 10:48 10:48 LIPASE+C.LAB.BRZ ordered. EDMS EDMS 10:48 10:48 Test, Urine+UC.LAB.BRZ ordered. EDMS EDMS 10:48 10:48 Urinalysis+U.LAB.BRZ ordered. EDMS EDMS 12:22 10:48 TEST, SERUM+SC.LAB.BRZ ordered. EDMS EDMS
[2024-04-17] MEDS ORDERED: PHENAZOPYRIDINE 100MG TAB PO ONE (14:23)
[2024-04-17 14:49] VITALS: BP 129/76; TEMP 98.1; O2SAT 100
== END 2024-04-17 14:42 | disposition home or self-care (01) ==
LOC: ER 10:30
DX: R31.9 Hematuria, unspecified (principal); R30.0 Dysuria; M54.50 Low back pain, unspecified
CPT/HCPCS: 85025; 81001; 36415; 81025; 83690; 80053; 76377; 74176; 96375; 96374; 99284; J2405; J7030; J0696

== ENCOUNTER 2024-05-27 13:16 | Emergency (ER) | payer OTHER ==
--- OUTSIDE RECORDS SUMMARY | 2024-05-27 13:44 | XMS REPORT | Continuity of Care Document ---
Author Name Unknown Address [address] [facility] [address] [place] [address] [facility] Address [address] [place] [address] Care Team Providers Care Pocket Creaser Name Role Phone Tova Hoffman MD Primary Care Physician [phone] Jae Holloway Attending Clinician Unavailable LORA CULVER Attending Clinician Ramya Culver MD, Lora Douglas Attending Clinician [phone] DAVIDSON SUTHERLAND Attending Clinician Unavailable Doctor Unassigned, [place] Attending Clinician U Tavon Ruth MD Attending Clinician [phone] ALESHA CROWE Attending Clinician Unavailable Consuelo BAUER, Elidia Gamble Attending Clinician + [phone] Dominic Keita MD Attending Clinician [phone] Jose Westbrook MD Attending Clinician + [phone] JOSE WESTBROOK Attending Clinician Unavailable FARZANA SAUCEDA Attending Clinician Unavailable PEPPER SIDNEYABRAHAM Attending Clinician Unavailable PEPPER, SIDNEYDENJUNIOR Attending Clinician Unavailable Sidney Pabon DOJaydenJunior Attending Clinician [phone] Rhiannon Hickman MD Attending Clinician + [phone] Dominic Keita MD Attending Clinician +- [phone] Consuelo BAUER, Elidia Gamble Attending Clinician +[phone] EMILIA SNOWDEN Attending Clinician Annia vailable Doctor Unassigned, [place] Attending Clinician U SARA Day Attending Clinician UnavailSARA Dorado Attending Clinician UnavailJewel Forbes MD Attending Clinician + [phone] [facility] Attending Clinician Unavailable JEWEL CUNHA Attending Clinician UnavailJENNY Joseph Attending Clinician Unavailable JENNY ARRIAGA Attending Clinician Unavailable Dexter Dias MD Attending Clinician [phone] Davidson Sutherland MD Attending Clinician [phone] [facility] Attending Clinician Unavailable DEXTER DIAS Attending Clinician Unavailable GC_GCBZW_Kadiyala_S Attending Clinician UnavailONEIDA Wyman Attending Clinician Unavailable DOMINIC KEITA Attending Clinician UnavailHunter Sahni MD Attending Clinician [phone] Ting Grissom MD Attending Clinician [phone] RADIOLOGY Attending Clinician Unavailable DORA NEWMAN Attending Clinician Unavailable Dora Newman NP Attending Clinician + [phone] Kath Vences MD Attending Clinician [phone]- [phone] Pob, [facility] Main Attending Clinician UnavailKATH Grady Attending Clinician Unavailchris russell Pathology Attending Clinician Unavailable IGOR SAAVEDRA Attending Clinician UnavailHILARY Conrad Attending Clinician UnavailHILARY Conrad Attending Clinician UnavailMartine pfeiffer Rai, MDt Kelsey Attending Clinician Unava ilable GIGI MONROY Attending Clinician Unavailable Gigi Monroy DO Attending Clinician [phone] Robert Best MD, Zane Attending Clinician [phone] Deonte Aviles Attending Clinician Unavailable UNKNOWN, ATTENDING Attending Clinician Unavailab SALLY Cash Attending Clinician Unavail able SALLY MITCHELL Attending Clinician Unavail able Salbador Lockwood MD Attending Clinician + SALBADOR LOCKWOOD Attending Clinician Unavailable HALIMA CONNOR Attending Clinician Unavailab Halima Choi DO Attending Clinician [phone] ROBERT NOWAK Attending Clinician Unavail able Patti Hutton Attending Clinician [phone] CRISTO MARTINEZ Attending Clinician Unavail able JEWEL MORAES Attending Clinician Unava ilable KATH DELGADO Attending Clinician Unav ailable ANGELA RAUSCH Attending Clinician Unavailab LORA Torres Admitting Clinician Ramya Culver MD, Lora Douglas Admitting Clinician +- [phone] RHIANNON HICKMAN Admitting Clinician Unavailable GC_GCBZW_Kadiyala_S Admitting Clinician UnavailDOMINIC Peres Admitting Clinician Unavailchris Keita MD, Dominic Admitting Clinician [phone] Payers Payer Name Policy Type Policy Number Effective Date Expirati on Date Source [employer] [id number] 2024 00:00:00 [facility] [id number] 2023 00[facility]00[facility]00 [facility] [id number] 2022 00:00:00 MEDICAID SSI PENDING PENDING 2021 00:00:00 Problems Condition Name Condition Details Condition Category Status Onset Date Resolution Date Last Treatment Date Treating Clinician Comments Source Unstable angina (CMS/HCC) Unstable angina (CMS/HCC) Disease Active 4-14 00:00: 00 Brayan Mosher Steatosis of liver Steatosis of Liver Problem Active 04-10 00:00: 00 [facility] Alkaline phosphatas e above reference range Alkaline Phosphatas e above Reference Range Problem Active 2-27 00:00: 00 [facility] Vitamin D deficiency Vitamin D Deficiency Problem Active 2-20 00:00: 00 [facility] Menometror rhagia Menometror rhagia Problem Active 2-20 00:00: 00 [facility] Fatigue Fatigue Problem Active 2-20 00:00: 00 [facility] Dysuria Dysuria Problem Active 220 00:00: 00 [facility] Reduced libido Reduced Libido Problem Active 220 00:00: 00 [facility] Obese class I Obese Class I Problem Active 2 00:00: 00 [facility] Excessive menstruati on with irregular cycle Excessive Menstruati on with Irregular Cycle Problem Active 1-24 00:00: 00 [facility] Stenosis of cervix Stenosis of Cervix Problem Active 1-20 00:00: 00 [facility] Atrial fibrillati on Atrial Fibrillati on Problem Active 2023-02 2- 00:00: 00 [facility] Acute urinary tract infection Acute Urinary Tract Infection Problem Active 2023-02 2- 00:00: 00 [facility] Irregular periods Irregular Periods Problem Active 2023-02 2 00:00: 00 [facility] Hyperlipid emia Hyperlipid emia Problem Active 2023-02 2- 00:00: 00 [facility] Anxiety Anxiety Problem Active 2023-02 2- 00:00: 00 [facility] Depressive disorder Depressive Disorder Problem Active 2023-02 2 00:00: 00 [facility] Essential hypertensi on Essential Hypertensi on Problem Active 2023-02 2 00:00: 00 [facility] Iron deficiency anemia due to chronic blood loss Iron deficiency anemia due to chronic blood loss Disease Active 10-19 00:00: 00 [facility] Gastroesop hageal reflux disease, unspecifie d whether esophagiti s present Gastroesop hageal reflux disease, unspecifie d whether esophagiti s present Disease Active 10-19 00:00: 00 [facility] Arrhythmia Arrhythmia Disease Active 10-18 00:00: 00 [facility] Anemia Anemia Disease Active 02-17 00:00: 00 [facility] Bipolar 1 disorder, depressed Bipolar 1 disorder, depressed Disease Active 2019-02 00:00: 00 [facility] Gout Gout Disease Active 08-17 00:00: 00 [facility] Severe headache Severe headache Disease Active 1998-02 00:00: 00 [facility] Insomnia disorder Insomnia disorder Disease Active 1989-02 00:00: 00 [facility] Anxiety Anxiety Disease Active 10-18 00:00: 00 [facility] No known active problems No known active problems Disease [facility] Constipate d Constipate d Problem [facility] Imaging of brain abnormal Abnormal brain scan Problem [facility] Seizure Seizure Problem [facility] Chronic intractabl e migraine without aura Chronic migraine without aura, intractabl e, without status migrainosu s Problem [facility] Skin sensation disturbanc e Facial tingling sensation Problem [facility] Magnetic resonance imaging of brain abnormal White matter abnormalit y on MRI of brain Problem [facility] Disorder of autonomic nervous system Autonomic dysfunctio n Problem [facility] Benign intracrani al hypertensi on Elevated intracrani al pressure Problem [facility] Myoclonus Myoclonic jerking Problem [facility] Cervical dystonia Cervical dystonia Problem [facility] Carpal tunnel syndrome Carpal tunnel syndrome, bilateral upper limbs Problem [facility] Peripheral neuropathy Peripheral neuropathy Problem [facility] Allergies, Adverse Reactions, Alerts Allergy Name Allergy Type Status Severity Reaction(s) Onset Date Inactive Date Treating Clinician Comments Source Adhesive Tape Propensi ty to adverse reaction s Active 05-26 00:00: 00 Brayan Hazel Epic Nifedipi ne Propensi ty to adverse reaction s Active 05-26 00:00: 00 Brayna Hazel Epic Sulfa Antibiot ics Propensi ty to adverse reaction s Active 05-26 00:00: 00 Brayan Hazel Epic Sulfa Drugs (Not Checked) Propensi ty to adverse reaction to drug Active 2024-1 0-15 00:00: 00 Robert Cali Sulfa Antibiot ics - CLASS Propensi ty to adverse reaction to drug Active 5-10 00:00: 00 Robert Cali Sulfa (Sulfona mide Antibiot ics) Propensi ty to adverse reaction s Active Hives 24 00:00: 00 [facility] SULFA (SULFONA MIDE ANTIBIOT ICS) Drug Class Active Hives 24 00:00: 00 [facility] Substanc e with sulfonam chelo structur e and antibact erial mechanis m of action (substan ce) Substanc e with sulfonam chelo structur e and antibact erial mechanis m of action (substan ce) Active Unknown [facility] SULFA (SULFONA MIDE ANTIBIOT ICS) Allergy to substanc e Active [facility] Social History Social Habit Start Date Stop Date Quantity Comments Source ASSERTION Possible [facility] Gender identity Rj quita [facility] Sexual orientation [facility]orial [facility] Sex Assigned At [facility] History of Tobacco Use [facility] Tobacco use and exposure 2024-05-26 00:00:00 2024-05-26 00:00:00 Smokeless tobacco non-user [facility] Alcoholic beverage intake 2024-05-26 00:00:00 2024-05-26 00:00:00 Lifetime non-drinker (finding) [facility] History of Social function 2024-05-26 00:00:00 2024-05-26 00:00:00 [facility] Exposure to SARS-CoV-2 (event) 2022-02-05 00:00:00 2022-02-15 08:57:00 Not sure [facility] Smoking Status Start Date Stop Date Source [facility] Medications Ordered Medication Name Filled Medication Name Start Date Stop Date Current Medication? Ordering Clinician Indication Dosage Frequency Signature (SIG) Comments Components Source ALPRAZolam (Xanax) 0.5 MG tablet ALPRAZolam (Xanax) 0.5 MG tablet 05-26 10:46: 07 Yes .5mg QD Take 0.5 mg by mouth 1 time each day. Brayan [facility] clonazePAM (KlonoPIN) 1 MG tablet clonazePAM (KlonoPIN) 1 MG tablet 05-26 10:46: 07 Yes 1mg Q.5D Take 1 mg by mouth 2 times a day as needed for anxiety. Brayan Mosher DULoxetine (Cymbalta) [address] capsule DULoxetine (Cymbalta) [address] capsule 05-26 10:46: 07 Yes 60mg Q.5D Take 60 mg by mouth in the morning and 60 mg in the evening. Brayan Mosher busPIRone (Buspar) 30 MG tablet busPIRone (Buspar) 30 MG tablet 05-26 10:46: 07 Yes 1{tbl} Q.5D Take 1 tablet by mouth in the morning and 1 tablet in the evening. Brayan Mosher lithium ER (Eskalith) 450 MG 12 hr tablet lithium ER (Eskalith) 450 MG 12 hr tablet 05-26 10:46: 07 Yes 1{tbl} Q.5D Take 1 tablet by mouth in the morning and 1 tablet in the evening. Brayan Mosher Ubrogepant (Ubrelvy) 100 MG tablet Ubrogepant (Ubrelvy) 100 MG tablet 05-26 10:46: 07 Yes 1{tbl} Take 1 tablet by mouth if needed (not listed md clarify). Brayan Mosher traZODone (Desyrel) 50 MG tablet traZODone (Desyrel) 50 MG tablet 05-26 10:46: 07 Yes 1{tbl} QD Take 1 tablet by mouth 1 time each day. Brayan Mosher amantadine (Symmetrel) 100 MG capsule amantadine (Symmetrel) 100 MG capsule 05-26 10:46: 07 Yes 1{capsu le} Take 1 capsule by mouth 1 time each day at the same time. Brayan Mosher meclizine (Antivert) 25 MG tablet meclizine (Antivert) 25 MG tablet 05-26 10:46: 07 Yes 25mg Q.[id number] 3D Take 25 mg by mouth 3 times a day as needed for dizziness. Brayan Mosher cholecalcif tiffani 25 MCG (1000 UT) tablet cholecalcif tiffani 25 MCG (1000 UT) tablet 05-26 10:46: 07 Yes 25ug QD Take 25 mcg by mouth 1 time each day. Brayan Mosher olmesartan (BENIcar) 20 MG tablet olmesartan (BENIcar) 20 MG tablet 05-26 10:46: 07 Yes 20mg Q.5D Take 20 mg by mouth in the morning and 20 mg in the evening. Brayan Mosher allopurinol (Zyloprim) 100 MG tablet allopurinol (Zyloprim) 100 MG tablet 05-26 10:46: 07 Yes 100mg QD Take 100 mg by mouth 1 time each day. Brayan Mohser aspirin EC 81 MG EC tablet aspirin EC 81 MG EC tablet 05-26 10:46: 07 Yes 81mg QD Take 81 mg by mouth 1 time each day. Brayan Moshre sodium chloride 0.9 % infusion sodium chloride 0.9 % infusion 05-26 06:45: 00 Yes 100mL/h 100 mL/hr, Intravenou s, Administer over 10 Hours, Once, On Sun05/26/24 at 0645, For 1 dose, Preprocedu re Brayan Mosher sodium chloride (NS) 0.9 % flush 10 mL sodium chloride (NS) 0.9 % flush 10 mL 05-26 06:43: 34 Yes 10mL Q8H [Order 1 Start] Name: Insert peripheral IV Signed Summary: Once, On Sun05/26/24 at 0644, For 1 occurrence , Preprocedu re [Order 1 End] [Order 2 Start] Name: Saline lock IV Signed Summary: Once, On Sun05/26/24 at 0644, For 1 occurrence , Preprocedu re [Order 2 End] [Order 3 Start] Name: sodium chloride (NS) 0.9 % flush 10 mL Signed Summary: 10 mL, Intravenou s, Every 8 hours PRN, line care, Starting on Sun05/26/24 at 0643, Preprocedu re [Order 3 End] Brayan Mosher BUSPIRONE 30 mg tablet 05-23 00:00: 00 Yes [id number] TAKE 1 TABLET BY MOUTH EVERY MORNING AND IN EVENING [facility] DULOXETINE 60 mg capsule 4-11 00:00: 00 Yes [id number] TAKE 1 CAPSULE BY MOUTH EVERY MORNING AND IN EVENING [facility] rosuvastati n (Crestor) 20 MG tablet rosuvastati n (Crestor) 20 MG tablet 4-09 00:00: 00 Yes 20mg QD Take 20 mg by mouth 1 time each day. Brayan Mosher metoprolol succinate XL (Toprol-XL) 50 MG 24 hr tablet metoprolol succinate XL (Toprol-XL) 50 MG 24 hr tablet 4-02 00:00: 00 Yes 50mg QD Take 50 mg by mouth 1 time each day. Brayan Mosher hydroCHLORO thiazide 12.5 MG tablet hydroCHLORO thiazide 12.5 MG tablet 4- 00:00: 00 Yes 12.5mg QD Take 12.5 mg by mouth 1 time each day. Brayan Mosher propranolol (Inderal) 80 MG tablet propranolol (Inderal) 80 MG tablet 3-24 00:00: 00 Yes 80mg Q.5D Take 80 mg by mouth in the morning and 80 mg in the evening. Brayan Mosher clonazePAM 1 mg tablet 3- 00:00: 00 Yes [id number] 1mg Take 1 tablet by mouth as needed for Other (panic). [facility] DULOXETINE 60 mg capsule 3-11 00:00: 00 05-23 00:00 :00 No [id number] TAKE 1 CAPSULE BY MOUTH EVERY MORNING AND IN EVENING [facility] BUSPIRONE 30 mg tablet 3-11 00:00: 00 05-23 00:00 :00 No [id number] TAKE 1 TABLET BY MOUTH EVERY MORNING AND IN EVENING [facility] lamoTRIgine (LaMICtal) 25 MG tablet lamoTRIgine (LaMICtal) 25 MG tablet 2-28 00:00: 00 Yes 25mg QD Take 25 mg by mouth 1 time each day. Brayan Mosher traMADol (Ultram) 50 MG tablet traMADol (Ultram) 50 MG tablet 2- 00:00: 00 Yes 50mg Q6H Take 50 mg by mouth every 6 hours if needed. Brayan Mosher Venofer 200 mg iron/10 mL intravenous solution 2-19 00:00: 00 Yes 10mg iron/10 mL Robert Cali pregabalin 75 mg capsule 2-13 00:00: 00 Yes 1mg Robert Cali lithium carbonate CR 450 mg SR tablet 2- 00:00: 00 Yes [id number] 900mg Take 2 tablets by mouth at bedtime. [facility] clonazePAM 1 mg tablet - 00:00: 00 04-27 00:00 :00 No [id number] 1mg Take 1 tablet by mouth as needed for Other (panic). [facility] DULoxetine 60 mg capsule - 00:00: 00 04-22 00:00 :00 No [id number] 60mg Take 1 capsule by mouth in the morning and 1 capsule in the evening. [facility] busPIRone 30 mg tablet 03-21 00:00: 00 04-22 00:00 :00 No [id number] 30mg Take 1 tablet by mouth in the morning and 1 tablet in the evening. [facility] pregabalin 75 mg capsule 03-19 00:00: 00 Yes 1mg Robert Cali lamoTRIgine 25 mg tablet 03-14 00:00: 00 04-11 00:00 :00 No [id number] Take 1 tablet by mouth daily for 14 days, THEN 2 tablets daily for 14 days. [facility] Amantadine HCl 100 MG Amantadine HCl 100 MG 1- 00:00: 00 No 1{wolf le} QD Amantadine HCl 100 MG busPIRone 30 mg tablet 2023-02 00:00: 00 03-19 00:00 :00 No [id number] 30mg Take 1 tablet by mouth in the morning and 1 tablet in the evening. [facility] DULoxetine 60 mg capsule 2023-02 00:00: 00 03-19 00:00 :00 No [id number] 60mg Take 1 capsule by mouth in the morning and 1 capsule in the evening. [facility] Venofer 200 mg iron/10 mL intravenous solution 2023-02 00:00: 00 Yes 10mg iron/10 mL Robert Cali Venofer 200 mg iron/10 mL intravenous solution 2023-02 00:00: 00 Yes 10mg iron/10 mL Robert Cali traZODone 50 mg tablet 2023-02 00:00: 00 Yes [id number] Take 1-2 tablets daily at bedtime for sleep [facility] clonazePAM 1 mg tablet 2023-02 00:00: 00 03-16 00:00 :00 No [id number] TAKE 1/2 TO 1 TABLET BY MOUTH ONCE DAILY NEEDED FOR SEVERE ANXIETY [facility] traZODone 50 mg tablet 2023-02 00:00: 00 01-27 00:00 :00 No [id number] Take 1-2 tablets for sleep [facility] Cyclobenzap rine HCl 10 MG Cyclobenzap rine HCl 10 MG 2023-02 00:00: 00 No 1{table t_at_be dtime_a s_neede d} QD Cyclobenza amber HCl 10 MG Venofer 200 mg iron/10 mL intravenous solution 2023-02 00:00: 00 Yes 10mg iron/10 mL Robert Cali busPIRone 30 mg tablet 2023-02 00:00: 00 02-11 00:00 :00 No [id number] TAKE 1 TABLET BY MOUTH EVERY MORNING AND TAKE ONE TABLET BY MOUTH EVERY EVENING [facility] DULoxetine 60 mg capsule 2023-02 00:00: 00 02-11 00:00 :00 No [id number] TAKE 1 CAPSULE BY MOUTH 2 TIMES A DAY ( EVERY MORNING AND EVERY EVENING ) [facility] ibuprofen 800 mg tablet 2023-02 [...] 0- 00:00: 00 01-20 00:00 :00 No [id number] TAKE 1 AND 1/2 TABLET BY MOUTH AT BEDTIME [facility] Vitamin D3 25 mcg (1,000 unit) tablet 2023-02 0-17 00:00: 00 Yes 1(1,000 unit) Robert Cali diclofenac sodium 75 mg tablet,mikal yed release 2023-02 0-15 00:00: 00 Yes 1mg Robert Cali lithium carbonate CR 450 mg SR tablet 2023-02 0-03 00:00: 00 03-19 00:00 :00 No [id number] TAKE TWO TABLETS BY MOUTH AT BEDTIME [facility] LAMOTRIGINE 100 mg tablet 11-09 00:00: 00 03-14 00:00 :00 No [id number] TAKE 1 TABLET BY MOUTH 2 TIMES A DAY (MORNING AND EVENING ) TELL DOCTOR IF YOU MISSED 4 OR MORE DAYS OF THIS MEDICATION , WILL NEED TO START AT LOWER DOSE [facility] clonazePAM 1 mg tablet 11-09 00:00: 00 01-24 00:00 :00 No [id number] TAKE 1/2 TO 1 TABLET BY MOUTH ONCE DAILY NEEDED FOR SEVERE ANXIETY [facility] lithium carbonate CR 450 mg SR tablet -04 00:00: 00 11-14 00:00 :00 No [id number] 900mg Take 2 tablets by mouth at bedtime. [facility] traZODone 50 mg tablet 8-07 00:00: 00 12-10 00:00 :00 No [id number] 75mg Take 1.5 tablets by mouth at bedtime for 90 days. [facility] busPIRone 30 mg tablet 7-22 00:00: 00 01-07 00:00 :00 No [id number] 30mg Take 1 tablet by mouth in the morning and 1 tablet in the evening. [facility] DULoxetine 60 mg capsule 09-02 00:00: 00 01-07 00:00 :00 No [id number] 60mg Take 1 capsule by mouth in the morning and 1 capsule in the evening. Follow up for refills [facility] clonazePAM (KLONOPIN) 1 mg tablet 09-02 00:00: 00 11-09 00:00 :00 No [id number] 1mg Take 1 tablet by mouth once daily as needed for Other (severe anxiety). Take 0.5mg to 1mg as needed for severe anxiety [facility] traZODone 50 mg tablet 08-27 00:00: 00 09-18 00:00 :00 No [id number] 50mg Take 1 tablet by mouth at bedtime. May cut tablet in half. Follow up for refills [facility] busPIRone 10 mg tablet 08-27 00:00: 00 09-02 00:00 :00 No [id number] 20mg Take 2 tablets by mouth in the morning and 2 tablets in the evening. Follow up for refills [facility] ferric derisomalto se (MONOFERRIC ) 100 mg iron/mL Soln 08-07 00:00: 00 08-08 04:59 :00 No [id number] 500mg Inject 500 mg intravenou sly once now for 1 dose. [facility] clonazePAM 1 mg tablet 08-01 00:00: 00 09-02 00:00 :00 No [id number] Take half to 1 tablet by mouth once daily as needed for extreme anxiety. Attempt to minimize use. Follow-up for continued refills. [facility] lithium carbonate CR 450 mg SR tablet 07-30 00:00: 00 10-16 00:00 :00 No [id number] 900mg Take 2 tablets by mouth at bedtime. [facility] omeprazole 40 mg capsule 07-25 00:00: 00 07-21 04:59 :00 No [id number] 40mg Take 1 capsule by mouth in the morning and 1 capsule in the evening. Take with meals. Do all this for 360 days. [facility] sucralfate 1 gram tablet 07-25 00:00: 00 10-24 04:59 :00 No [id number] 1g Take 1 tablet by mouth before meals and at bedtime for 90 days. [facility] traZODone 50 mg tablet 07-18 00:00: 00 08-26 00:00 :00 No [id number] 50mg Take 1 tablet by mouth at bedtime. May cut tablet in half. Follow up for refills [facility] DULoxetine 60 mg capsule 06-21 00:00: 00 09-02 00:00 :00 No [id number] 60mg Take 1 capsule by mouth in the morning and 1 capsule in the evening. Follow up for refills [facility] busPIRone 10 mg tablet 06-21 00:00: 00 08-27 00:00 :00 No [id number] 20mg Take 2 tablets by mouth in the morning and 2 tablets in the evening. Follow up for refills [facility] traZODone 50 mg tablet 06-21 00:00: 00 07-18 00:00 :00 No [id number] 50mg Take 1 tablet by mouth at bedtime. May cut tablet in half. Follow up for refills [facility] clonazePAM 1 mg tablet 06-12 00:00: 00 07-30 00:00 :00 No [id number] Take half to 1 tablet by mouth once daily as needed for extreme anxiety. Attempt to minimize use. Follow-up for continued refills. [facility] iopamidol (ISOVUE 370-500 mL) injection 80 mL 06-07 02:57: 00 06-07 02:45 :00 No [id number] 80mL 80 mL, Intravenou s, ONCE, 1 dose, On Sun06/07/23 at 2200, Routine [facility] NaCl 0.9% (NS) injection 5 mL 06-07 02:36: 00 Yes 5mL 5 mL, Slow IV Push, PRN - SEE INSTRUCTIO NS, Starting on Sun06/07/23 at 2136, Until Discontinu ed, 10 mL [facility] traZODone 50 mg tablet 10 00:00: 00 06-21 00:00 :00 No [id number] 50mg Take 1 tablet by mouth at bedtime. May cut tablet in half. [facility] DULoxetine 60 mg capsule 05-22 00:00: 00 06-21 00:00 :00 No [id number] 60mg Take 1 capsule by mouth in the morning and 1 capsule in the evening. [facility] busPIRone 10 mg tablet 05-07 00:00: 00 06-21 00:00 :00 No [id number] 20mg Take 2 tablets by mouth in the morning and 2 tablets in the evening. [facility] traZODone 50 mg tablet 04-24 00:00: 00 05-22 00:00 :00 No [id number] 50mg Take 1 tablet by mouth at bedtime. May cut tablet in half. [facility] DULoxetine 60 mg capsule 3 00:00: 00 05-22 00:00 :00 No [id number] 60mg Take 1 capsule by mouth in the morning and 1 capsule in the evening. [facility] DULoxetine 60 mg capsule -24 00:00: 00 04-23 00:00 :00 No [id number] 60mg Take 1 capsule by mouth in the morning and 1 capsule in the evening. [facility] Ubrelvy 100 MG Ubrelvy 100 MG 1- 00:00: 00 No Ubrelvy 100 MG losartan potassium (LOSARTAN ORAL) - 09:55: 13 Yes 20mg Take 20 mg by mouth. [facility] propranolol 80 mg tablet - 09:55: 13 Yes 80mg Take 1 tablet by mouth in the morning and 1 tablet in the evening. [facility] allopurinoL 100 mg tablet 02-15 09:55: 13 Yes 100mg Take 1 tablet by mouth in the morning. [facility] lithium carbonate CR 450 mg SR tablet 2022-02 00:00: 00 07-29 00:00 :00 No [id number] 900mg Take 2 tablets by mouth at bedtime. [facility] clonazePAM 1 mg tablet 2022-02 00:00: 00 06-11 00:00 :00 No [id number] Take half to 1 tablet by mouth once daily as needed for extreme anxiety. Attempt to minimize use. [facility] busPIRone 10 mg tablet 2022-02 00:00: 00 05-07 00:00 :00 No [id number] 20mg Take 2 tablets by mouth in the morning and 2 tablets in the evening. [facility] traZODone 50 mg tablet 2022-02 00:00: 00 04-22 00:00 :00 No [id number] 50mg Take 1 tablet by mouth at bedtime. May cut tablet in half. [facility] DULoxetine 60 mg capsule 2022-02 00:00: 00 03-07 00:00 :00 No [id number] 60mg Take 1 capsule by mouth in the morning and 1 capsule in the evening. [facility] TAKE 1 TABLET EVERY 4 HOURS NEEDED. 2022-02 00:00: 00 06-12 00:00 :00 No 10 Robert Cali busPIRone 15 mg tablet 2022-02 00:00: 00 01-22 00:00 :00 No [id number] 15mg Take 1 tablet by mouth in the morning and 1 tablet in the evening. [facility] lithium carbonate CR 450 mg SR tablet 2022-02 00:00: 00 01-22 00:00 :00 No [id number] 900mg Take 2 tablets by mouth at bedtime. [facility] traZODone 50 mg tablet 2022-02 00:00: 00 01-22 00:00 :00 No [id number] 50mg Take 1 tablet by mouth at bedtime. May cut tablet in half. [facility] DULoxetine 60 mg capsule 2022-02 00:00: 00 01-22 00:00 :00 No [id number] 60mg Take 1 capsule by mouth in the morning and 1 capsule in the evening. [facility] clonazePAM 1 mg tablet 2022-02 00:00: 01-22 00:00 :00 No [id number] Take 1 tablet by mouth once daily as needed for extreme anxiety. Attempt to minimize use. [facility] busPIRone 15 mg tablet 2022-02 00:00: 00 12-20 00:00 :00 No [id number] 15mg Take 1 tablet by mouth in the morning and 1 tablet in the evening. [facility] lithium carbonate CR 450 mg SR tablet 2022-02 00:00: 12-20 00:00 :00 No [id number] 900mg Take 2 tablets by mouth at bedtime. [facility] traZODone 50 mg tablet 2022-02 00:00: 00 12-20 00:00 :00 No [id number] 50mg Take 1 tablet by mouth at bedtime. May cut tablet in half. [facility] TAKE 2 TABLETS ONCE A DAY BY MOUTH 2022-02 00:00: 00 06-12 00:00 :00 No 200 Robert Cali DULoxetine 60 mg capsule 2022-02 00:00: 00 12-20 00:00 :00 No [id number] 60mg Take 1 capsule by mouth in the morning and 1 capsule in the evening. [facility] simethicone (GAS RELIEF (SIMETHICON E)) 40 mg/0.6 mL drops 2022-02 13:19: 00 11-13 16:49 :02 No PRN, Starting on Sun11/13/22 at 0819, Until Sun11/13/22 at 1149, Routine, Intra-op [facility] losartan potassium (LOSARTAN ORAL) 2022-02 09:49: 01 Yes 20mg Take 20 mg by mouth. [facility] propranolol 80 mg tablet 2022-02 09:49: 01 Yes 80mg Take 1 tablet by mouth in the morning and 1 tablet in the evening. [facility] allopurinoL 100 mg tablet 2022-02 09:49: 01 Yes 100mg Take 1 tablet by mouth in the morning. [facility] sucralfate 1 gram tablet 2022-02 00:00: 00 12-14 04:59 :00 No 1g Take 1 tablet by mouth in the morning and 1 tablet in the evening. Do all this for 30 days. [facility] ketorolac (TORADOL) injection 30 mg 11-03 17:00: 00 11-03 16:25 :00 No 30mg 30 mg, Slow IV Push, ONCE, 1 dose, On Sun11/03/22 at 1200, Routine [facility] NaCl 0.9% (NS) bolus infusion 500 mL 11-03 16:45: 00 11-03 18:14 :00 No 500mL at 999 mL/hr, 500 mL, IV Infusion, ONCE, 1 dose, On Sun11/03/22 at 1145, SKYLAR [facility] butalbital- acetaminoph en-caff (ESGIC) 50-325-40 mg tablet 1 tablet 11-03 16:00: 00 11-03 16:21 :00 No 1{tbl} 1 tablet, Oral, ONCE, 1 dose, On Sun11/03/22 at 1100, SKYLAR [facility] dexamethaso ne sod phos PF injection 10 mg 11-03 16:00: 00 11-03 16:27 :00 No 10mg 10 mg, Slow IV Push, ONCE, 1 dose, On Sun11/03/22 at 1100, 1 mL [facility] metoclopram chelo HCl (REGLAN) injection 10 mg 11-03 16:00: 00 11-03 16:28 :00 No 10mg 10 mg, Slow IV Push, ONCE, 1 dose, On Sun11/03/22 at 1100, SKYLAR [facility] diphenhydrA MINE (BENADRYL) injection 25 mg 11-03 16:00: 00 11-03 16:30 :00 No 25mg 25 mg, Slow IV Push, ONCE, 1 dose, On Sun11/03/22 at 1100, STAT [facility] atorvastati n 10 mg tablet 11-03 10:48: 00 11-03 00:00 :00 No 10mg Take 10 mg by mouth at bedtime. [facility] butalbital- acetaminoph en-caff 50-325-40 mg tablet 11-03 00:00: 00 Yes [id number] 1{tbl} Take 1 tablet by mouth every 6 (six) hours as needed for Pain (scale 7-10) or Pain (scale 4-6) for up to 12 doses. [facility] peg-electro lyte soln 236-22.74-6 .74 -5.86 gram solution 10-19 00:00: 00 11-03 00:00 :00 No [id number] Take as directed before colonoscop y [facility] TAKE 1 TABLET DAILY. 10-12 00:00: 00 06-12 00:00 :00 No 40 Robert Cali busPIRone 15 mg tablet 10-04 00:00: 00 12-13 00:00 :00 No [id number] 15mg Take 1 tablet by mouth in the morning and 1 tablet in the evening. [facility] clonazePAM 1 mg tablet 09-28 00:00: 00 12-20 00:00 :00 No [id number] Take 1 tablet by mouth twice daily as needed for anxiety. [facility] DULoxetine 60 mg capsule 09-26 00:00: 00 11-22 00:00 :00 No [id number] 60mg Take 1 capsule by mouth in the morning and 1 capsule in the evening. [facility] lithium carbonate CR 450 mg SR tablet 09-13 00:00: 00 11-28 00:00 :00 No [id number] 900mg Take 2 tablets by mouth at bedtime. [facility] busPIRone 10 mg tablet 09-13 00:00: 00 10-04 00:00 :00 No [id number] 10mg Take 1 tablet by mouth in the morning and 1 tablet in the evening. [facility] clonazePAM 1 mg tablet 08-30 00:00: 00 09-25 00:00 :00 No [id number] Take 1 tablet by mouth twice daily as needed for anxiety. [facility] TAKE 2 TABLETS ONCE A DAY BY MOUTH 08-24 00:00: 00 06-12 00:00 :00 No 200 Robert Arnol Chris FUROSEMIDE ORAL 07-26 09:33: 26 07-26 00:00 :00 No 40mg Take 40 mg by mouth daily. [facility] traZODone 50 mg tablet 07-26 00:00: 00 11-28 00:00 :00 No [id number] 50mg Take 1 tablet by mouth at bedtime. May cut tablet in half. [facility] DULoxetine 60 mg capsule 07-26 00:00: 00 09-25 00:00 :00 No [id number] 60mg Take 1 capsule by mouth in the morning and 1 capsule in the evening. [facility] lithium carbonate CR 450 mg SR tablet 07-26 00:00: 00 09-13 00:00 :00 No [id number] 900mg Take 2 tablets by mouth at bedtime. [facility] busPIRone 10 mg tablet 07-26 00:00: 00 09-13 00:00 :00 No [id number] 10mg Take 1 tablet by mouth in the morning and 1 tablet in the evening. [facility] INHALE 2 PUFFS EVERY 4-6 HOURS NEEDED. 07-22 00:00: 06-12 00:00 :00 No [id number] Robert Cali clonazePAM 1 mg tablet 07-05 00:00: 00 08-29 00:00 :00 No [id number] Take 1 tablet by mouth twice daily as needed for anxiety. [facility] TAKE 1 CAPSULE 3 TIMES DAILY WITH MEALS. 16 00:00: 00 06-12 00:00 :00 No 120 Robert Cali DULoxetine 60 mg capsule 06-20 00:00: 00 07-26 00:00 :00 No [id number] 60mg Take 1 capsule by mouth in the morning and 1 capsule in the evening. [facility] lithium carbonate CR 450 mg SR tablet 06-20 00:00: 00 07-26 00:00 :00 No [id number] 900mg Take 2 tablets by mouth at bedtime. [facility] TAKE 1 TABLET TWICE DAILY. [...] 04-20 00:00: 00 07-26 00:00 :00 No [id number] 50mg Take 1 tablet by mouth at bedtime. May cut tablet in half. [facility] clonazePAM 1 mg tablet 04-20 00:00: 00 07-05 00:00 :00 No [id number] Take 1 tablet by mouth twice daily as needed for anxiety. [facility] DULoxetine 60 mg capsule 04-20 00:00: 00 06-17 00:00 :00 No [id number] 60mg Take 1 capsule by mouth in the morning and 1 capsule in the evening. [facility] lithium carbonate CR 450 mg SR tablet 0 3-09 00:00: 00 06-17 00:00 :00 No [id number] 900mg Take 2 tablets by mouth at bedtime. [facility] traZODone 50 mg tablet 0 1-04 00:00: 00 04-20 00:00 :00 No [id number] 50mg Take 1 tablet by mouth at bedtime. May cut tablet in half. [facility] lithium carbonate CR 450 mg SR tablet 1-04 00:00: 00 04-20 00:00 :00 No [id number] 900mg Take 2 tablets by mouth at bedtime. [facility] DULoxetine 60 mg capsule 1-04 00:00: 00 04-19 00:00 :00 No [id number] 60mg Take 1 capsule by mouth in the morning and 1 capsule in the evening. [facility] clonazePAM 1 mg tablet 1-04 00:00: 00 04-19 00:00 :00 No [id number] Take 1 tablet by mouth twice daily as needed for anxiety. [facility] lithium 600 mg capsule 1-04 00:00: 00 02-15 00:00 :00 No [id number] 600mg Take 1 capsule by mouth in the morning and 1 capsule in the evening. [facility] DULoxetine 60 mg capsule 2021-02 2- 00:00: 00 02-15 00:00 :00 No [id number] 60mg Take 1 capsule by mouth in the morning and 1 capsule in the evening. [facility] traZODone 50 mg tablet 2021-02 1-30 00:00: 00 02-15 00:00 :00 No [id number] 50mg Take 1 tablet by mouth at bedtime. May cut tablet in half. [facility] clonazePAM 1 mg tablet 2021-02 1- 00:00: 00 02-15 00:00 :00 No [id number] Take 1 tablet by mouth twice daily as needed for anxiety. [facility] DULoxetine 60 mg capsule 2021-02 128 00:00: 00 02-07 00:00 :00 No [id number] 60mg Take 1 capsule by mouth in the morning and 1 capsule in the evening. [facility] traZODone 50 mg tablet 2021-02 1- 00:00: 00 01-11 00:00 :00 No [id number] 50mg Take 1 tablet by mouth at bedtime. May cut tablet in half. [facility] DULoxetine 60 mg capsule 2021-02 0-25 00:00: 00 01-09 00:00 :00 No [id number] 60mg Take 1 capsule by mouth in the morning and 1 capsule in the evening. [facility] lithium 600 mg capsule 2021-02 0-20 00:00: 00 02-15 00:00 :00 No [id number] 600mg Take 1 capsule by mouth in the morning and 1 capsule in the evening. [facility] lamoTRIgine 25 mg tablet 2021-02 0-20 00:00: 00 01-11 00:00 :00 No [id number] 50mg Take 2 tablets by mouth in the morning and 2 tablets in the evening. [facility] clonazePAM 1 mg tablet 2021-02 0-20 00:00: 00 01-09 00:00 :00 No [id number] Take 1 tablet by mouth twice daily as needed for anxiety. [facility] lamoTRIgine 25 mg tablet 2021-0 8-26 00:00: 00 11-30 00:00 :00 No [id number] 50mg Take 2 tablets by mouth in the morning and 2 tablets in the evening. [facility] clonazePAM 1 mg tablet 2021-0 8-25 00:00: 00 11-30 00:00 :00 No [id number] Take no more than 1 mg twice daily as needed for anxiety [facility] lithium 600 mg capsule 2021-0 8-25 00:00: 00 11-30 00:00 :00 No [id number] 600mg Take 1 capsule by mouth in the morning and 1 capsule in the evening. [facility] Lamotrigine 50 mg tablet 8-25 00:00: 00 10-07 00:00 :00 No [id number] 50mg Take 1 tablet by mouth in the morning and 1 tablet in the evening. [facility] Lamotrigine 50 mg tablet 8-11 00:00: 00 10-06 00:00 :00 No [id number] 50mg Take 1 tablet by mouth in the morning and 1 tablet in the evening. [facility] DULoxetine 60 mg capsule 7-27 00:00: 00 12-05 00:00 :00 No [id number] 60mg Take 1 capsule by mouth in the morning and 1 capsule in the evening. [facility] Lamotrigine 50 mg tablet 7-18 00:00: 00 09-22 00:00 :00 No [id number] 50mg Take 1 tablet by mouth in the morning and 1 tablet in the evening. [facility] lithium 600 mg capsule 7-13 00:00: 00 10-06 00:00 :00 No [id number] 600mg Take 1 capsule by mouth in the morning and 1 capsule in the evening. [facility] DULoxetine 60 mg capsule 08-09 00:00: 00 Yes [id number] 60mg Take 1 capsule by mouth 2 (two) times daily. [facility] traZODone 50 mg tablet 08-09 00:00: 00 01-02 00:00 :00 No [id number] 50mg Take 1 tablet by mouth at bedtime. May cut tablet in half. [facility] clonazePAM 1 mg tablet 08-09 00:00: 00 10-06 00:00 :00 No [id number] Take no more than 1 mg twice daily as needed for anxiety [facility] CYANOCOBALA M INJ 1000MCG [employer] 4-23 00:00: 00 Yes Robert Cali DULoxetine 60 mg capsule 4-14 00:00: 00 08-09 00:00 :00 No [id number] 60mg Take 1 capsule by mouth 2 (two) times daily. [facility] traZODone 50 mg tablet 4-14 00:00: 00 08-09 00:00 :00 No [id number] 50mg Take 1 tablet by mouth at bedtime. May cut tablet in half. [facility] vitamin B-12 1,000 mcg tablet 05-23 00:00: 00 11-03 00:00 :00 No [id number] 1000ug Take 1 tablet by mouth daily. [facility] cyanocobala min 1,000 mcg/mL injection 05-23 00:00: 00 11-03 00:00 :00 No [id number] 1000ug 1 mL by Intramuscu lar route weekly. [facility] losartan potassium (LOSARTAN ORAL) 05 09:24: 36 Yes 20mg Take 20 mg by mouth. [facility] FUROSEMIDE ORAL 05 09:24: 36 Yes 40mg Take 40 mg by mouth daily. [facility] magnesium gluconate 200 mg tablet 05-17 00:00: 00 Yes [id number] 400mg Take 2 tablets by mouth 2 (two) times daily. [facility] gabapentin 300 mg capsule 05 00:00: 00 11-03 00:00 :00 No [id number] 300mg Take 1 capsule by mouth 3 (three) times daily. [facility] rizatriptan 5 mg disintegrat ing tablet 05 00:00: 00 11-03 00:00 :00 No [id number] 5mg Take 1 tablet by mouth as needed for Migraine (Take 5mg at the beginning of the headache can repeat 2h after if headaches persists). May repeat in 2 hours if needed [facility] magnesium gluconate 200 mg tablet 405 00:00: 00 11-03 00:00 :00 No [id number] 400mg Take 2 tablets by mouth 2 (two) times daily. [facility] artificial tears,hypro mellose, 0.5 % ophthalmic drops 0 4-05 00:00: 00 06-22 00:00 :00 No [id number] 1[drp] Place 1 Drop in left eye as needed for Dry eyes. [facility] Dose Unknown 2021-0 4-04 00:00: 00 Yes Robert F Chris Dose Unknown 2021-0 4-04 00:00: 00 Yes Robert F Chris Dose Unknown 2021-0 4-04 00:00: 00 Yes Robert F Chris Dose Unknown 2021-0 4-04 00:00: 00 Yes Robert F Chris Dose Unknown 2021-0 4-04 00:00: 00 Yes Robert F Chris Dose Unknown 2021-0 4-04 00:00: 00 Yes Robert F Chris Dose Unknown 2021-0 4-04 00:00: 00 Yes Robert F Chris Dose Unknown 2021-0 4-04 00:00: 00 Yes Robert F Chris Dose Unknown 2021-0 4-04 00:00: 00 Yes Robert F Chris Dose Unknown 2021-0 4-04 00:00: 00 Yes Robert F Chris Dose Unknown 2021-0 4-04 00:00: 00 Yes Robert F Chris Dose Unknown 2021-0 4-04 00:00: 00 Yes Robert F Chris Dose Unknown 2021-0 4-04 00:00: 00 Yes Robert F Chris Dose Unknown 2021-0 4-04 00:00: 00 Yes Robert F Chris Dose Unknown 2021-0 4-04 00:00: 00 Yes Robert F Chris Dose Unknown 2021-0 4-04 00:00: 00 Yes Roebrt F Chris Dose Unknown 2021-0 4-04 00:00: 00 Yes Robert F Chris Dose Unknown 2021-0 4-04 00:00: 00 Yes Robert F Chris Dose Unknown 2021-0 4-04 00:00: 00 Yes Robert F Chris clonazePAM 1 mg tablet 0 3-31 00:00: 00 08-09 00:00 :00 No [id number] Take no more than 1 mg twice daily as needed for anxiety [facility] lithium 600 mg capsule 0 3-30 00:00: 00 06-12 00:00 :00 No [id number] 600mg Take 1 capsule by mouth 2 (two) times daily. [facility] ondansetron (ZOFRAN ODT) 4 mg disintegrat ing tablet 09-02 00:00: 00 11-03 00:00 :00 No [id number] 4mg Take 1 tablet by mouth every 8 (eight) hours as needed for Nausea and Vomiting (N/V). [facility] butalbital- acetaminoph en-caff 50-325-40 mg tablet 09-02 00:00: 00 06-22 00:00 :00 No [id number] 1{tbl} Take 1 tablet by mouth every 6 (six) hours as needed for Pain (scale 7-10). [facility] Dose Unknown 0 07-14 00:00: 00 Yes Robert F Chris Dose Unknown 0 6- 00:00: 00 Yes Robert F Chris Dose Unknown 0 6-02 00:00: 00 Yes Robert F Chris Dose Unknown 0 -21 00:00: 00 Yes Robert F Chris Dose Unknown 2020-0 -19 00:00: 00 Yes Robert F Chris Dose Unknown 2020-0 -19 00:00: 00 Yes Robert F Chris Dose Unknown 0 -19 00:00: 00 Yes Robert F Chris Dose Unknown 2020-0 5-19 00:00: 00 Yes Robert F Chris Dose Unknown 2020-0 5-19 00:00: 00 Yes Robert F Chris Dose Unknown 2020-0 -19 00:00: 00 Yes Robert F Chris Dose Unknown 2020-0 5-19 00:00: 00 Yes Robert F Chris Dose Unknown 2020-0 5-19 00:00: 00 Yes Robert F Chris Dose Unknown 2020-0 5-19 00:00: 00 Yes Robert F Chris Dose Unknown 2020-0 5-19 00:00: 00 Yes Robert F Chris Dose Unknown 2020-0 5-19 00:00: 00 Yes Robert F Chris Dose Unknown 2020-0 5-19 00:00: 00 Yes Robert F Chris Dose Unknown 06-09 00:00: 00 Yes Robert Cali Dose Unknown 06-09 00:00: 00 Yes Robert Cali Dose Unknown 06-09 00:00: 00 Yes Robert Cali allopurinoL 100 mg tablet 08-05 13:17: 52 Yes 100mg Take 1 tablet by mouth in the morning. [facility] atorvastati n 10 mg tablet 08-05 13:17: 52 Yes 10mg Take 10 mg by mouth at bedtime. [facility] propranolol 80 mg tablet 08-05 13:12: 38 Yes 80mg Take 1 tablet by mouth in the morning and 1 tablet in the evening. [facility] nitrofurant oin monohydrate /macrocryst als 100 [...] day by oral route for 7 days. [facility] alprazolam 0.5 mg tablet Take 1 tablet 3 times a day by oral route. alprazolam 0.5 mg tablet Take 1 tablet 3 times a day by oral route. No 1 TID alprazolam 0.5 mg tablet Take 1 tablet 3 times a day by oral route. [facility] amlodipine 10 mg tablet Take 1 tablet every day by oral route. amlodipine 10 mg tablet Take 1 tablet every day by oral route. No 1 Q1D amlodipine 10 mg tablet Take 1 tablet every day by oral route. [facility] losartan [...] 1 capsule every day by oral route. [facility] propranolol propranolol No pr opranolo l [facility] rosuvastati n 10 mg tablet Take 1 tablet every day by oral route. rosuvastati n 10 mg tablet Take 1 tablet every day by oral route. No 1 Q1D rosuvastat in 10 mg tablet Take 1 tablet every day by oral route. [facility] progesteron e micronized 100 mg capsule TAKE 1 CAPSULE BY MOUTH DAILY progesteron e micronized 100 mg capsule TAKE 1 CAPSULE BY MOUTH DAILY No 1capsul e(s) Q1D progestero ne micronized 100 mg capsule TAKE 1 CAPSULE BY MOUTH DAILY [facility] Laurium Laurium No Laurium amLODIPine Besylate 5 MG amLODIPine Besylate 5 [...] Status Comments Source TDAP 2023-10-02 00:00:00 Completed [facility] Influenza Virus Vaccine Quad .5 mL IM 6+ MO (FLUZONE/FLULAVAL/F LUARIX) 2023-10-02 00:00:00 Completed [facility] SARS-COV-2 COVID-19 VACCINE - (MODERNA) 2023-10-02 00:00:00 Completed [facility] SARS-COV-2 COVID-19 VACCINE - (MODERNA) 2023-09-28 00:00:00 Completed [facility] TDAP 2023-07-30 00:00:00 Completed [facility] Influenza Virus Vaccine Quad .5 mL IM 6+ MO (FLUZONE/FLULAVAL/F LUARIX) 2023-07-30 00:00:00 Completed [facility] TDAP 2023-07-26 09:30:00 Completed [facility] Influenza Virus Vaccine Quad .5 mL IM 6+ MO (FLUZONE/FLULAVAL/F LUARIX) 2023-07-26 09:30:00 Completed [facility] SARS-COV-2 COVID-19 VACCINE - (MODERNA) 2023-07-26 09:30:00 Completed [facility] TDAP 2023-07-02 00:00:00 Completed [facility] Influenza Virus Vaccine Quad .5 mL IM 6+ MO (FLUZONE/FLULAVAL/F LUARIX) 2023-07-02 00:00:00 Completed [facility] SARS-COV-2 COVID-19 VACCINE - (MODERNA) 2023-07-02 00:00:00 Completed [facility] TDAP 2023-06-13 00:00:00 Completed [facility] Influenza Virus Vaccine Quad .5 mL IM 6+ MO (FLUZONE/FLULAVAL/F LUARIX) 2023-06-13 00:00:00 Completed [facility] SARS-COV-2 COVID-19 VACCINE - (MODERNA) 2023-06-13 00:00:00 Completed [facility] TDAP 2023-06-07 21:35:00 Completed [facility] Influenza Virus Vaccine Quad .5 mL IM 6+ MO (FLUZONE/FLULAVAL/F LUARIX) 2023-06-07 21:35:00 Completed [facility] SARS-COV-2 COVID-19 VACCINE - (MODERNA) 2023-06-07 21:35:00 Completed [facility] TDAP 2023-05-29 00:00:00 Completed [facility] Influenza Virus Vaccine Quad .5 mL IM 6+ MO (FLUZONE/FLULAVAL/F LUARIX) 2023-05-29 00:00:00 Completed [facility] SARS-COV-2 COVID-19 VACCINE - (MODERNA) 2023-05-29 00:00:00 Completed [facility] TDAP 2023-05-11 00:00:00 Completed [facility] Influenza Virus Vaccine Quad .5 mL IM 6+ MO (FLUZONE/FLULAVAL/F LUARIX) 2023-05-11 00:00:00 Completed [facility] SARS-COV-2 COVID-19 VACCINE - (MODERNA) 2023-05-11 00:00:00 Completed [facility] TDAP 2023-05-09 00:00:00 Completed [facility] Influenza Virus Vaccine Quad .5 mL IM 6+ MO (FLUZONE/FLULAVAL/F LUARIX) 2023-05-09 00:00:00 Completed [facility] SARS-COV-2 COVID-19 VACCINE - (MODERNA) 2023-05-09 00:00:00 Completed [facility] TDAP 2023-03-28 00:00:00 Completed [facility] Influenza Virus Vaccine Quad .5 mL IM 6+ MO (FLUZONE/FLULAVAL/F LUARIX) 2023-03-28 00:00:00 Completed [facility] SARS-COV-2 COVID-19 VACCINE - (MODERNA) 2023-03-28 00:00:00 Completed [facility] Influenza, injectable, MDCK, quadrivalent, preservative Influenza, injectable, MDCK, quadrivalent, preservative 2022-10-27 00:00:00 Completed Robert Cali influenza, injectable influenza, injectable 2020-11-13 00:00:00 Completed Robert Arnol Cali [facility] Tdap 2020-09-11 00:00:00 Completed Robert Cali Moderna COVID-19 Vaccine Moderna COVID-19 Vaccine 2020-04-24 00:00:00 Completed Robert Cali Moderna COVID-19 Vaccine Moderna COVID-19 Vaccine 2020-03-19 00:00:00 Completed Robert Cali TDAP Unknown Completed [facility] Influenza Virus Vaccine Quad .5 mL IM 6+ MO (FLUZONE/FLULAVAL/F LUARIX) Unknown Completed [facility] SARS-COV-2 COVID-19 VACCINE - (MODERNA) Unknown Completed [facility] TDAP Unknown Completed [facility] Influenza Virus Vaccine Quad .5 mL IM 6+ MO (FLUZONE/FLULAVAL/F LUARIX) Unknown Completed [facility] SARS-COV-2 COVID-19 VACCINE - (MODERNA) Unknown Completed [facility] TDAP Unknown Completed [facility] Influenza Virus Vaccine Quad .5 mL IM 6+ MO (FLUZONE/FLULAVAL/F LUARIX) Unknown Completed [facility] SARS-COV-2 COVID-19 VACCINE - (MODERNA) Unknown Completed [facility] TDAP Unknown Completed [facility] Influenza Virus Vaccine Quad .5 mL IM 6+ MO (FLUZONE/FLULAVAL/F LUARIX) Unknown Completed [facility] SARS-COV-2 COVID-19 VACCINE - (MODERNA) Unknown Completed [facility] TDAP Unknown Completed [facility] Influenza Virus Vaccine Quad .5 mL IM 6+ MO (FLUZONE/FLULAVAL/F LUARIX) Unknown Completed [facility] SARS-COV-2 COVID-19 VACCINE - (MODERNA) Unknown Completed [facility] TDAP Unknown Completed [facility] Influenza Virus Vaccine Quad .5 mL IM 6+ MO (FLUZONE/FLULAVAL/F LUARIX) Unknown [facility] [facility] SARS-COV-2 COVID-19 VACCINE - (MODERNA) Unknown Completed [facility] TDAP Unknown Completed [facility] Influenza Virus Vaccine Quad .5 mL IM 6+ MO (FLUZONE/FLULAVAL/F LUARIX) Unknown Completed [facility] SARS-COV-2 COVID-19 VACCINE - (MODERNA) Unknown Completed [facility] TDAP Unknown Completed [facility] Influenza Virus Vaccine Quad .5 mL IM 6+ MO (FLUZONE/FLULAVAL/F LUARIX) Unknown Completed [facility] SARS-COV-2 COVID-19 VACCINE - (MODERNA) Unknown Completed [facility] TDAP Unknown Completed [facility] Influenza Virus Vaccine Quad .5 mL IM 6+ MO (FLUZONE/FLULAVAL/F LUARIX) Unknown Completed [facility] SARS-COV-2 COVID-19 VACCINE - (MODERNA) Unknown Completed [facility] TDAP Unknown Completed [facility] Influenza Virus Vaccine Quad .5 mL IM 6+ MO (FLUZONE/FLULAVAL/F LUARIX) Unknown Completed [facility] SARS-COV-2 COVID-19 VACCINE - (MODERNA) Unknown Completed [facility] TDAP Unknown Completed [facility] Influenza Virus Vaccine Quad .5 mL IM 6+ MO (FLUZONE/FLULAVAL/F LUARIX) Unknown Completed [facility] SARS-COV-2 COVID-19 VACCINE - (MODERNA) Unknown Completed [facility] TDAP Unknown Completed [facility] Influenza Virus Vaccine Quad .5 mL IM 6+ MO (FLUZONE/FLULAVAL/F LUARIX) Unknown Completed [facility] SARS-COV-2 COVID-19 VACCINE - (MODERNA) Unknown Completed [facility] TDAP Unknown Completed [facility] Influenza Virus Vaccine Quad .5 mL IM 6+ MO (FLUZONE/FLULAVAL/F LUARIX) Unknown Completed [facility] SARS-COV-2 COVID-19 VACCINE - (MODERNA) Unknown Completed [facility] TDAP Unknown Completed [facility] Influenza Virus Vaccine Quad .5 mL IM 6+ MO (FLUZONE/FLULAVAL/F LUARIX) Unknown Completed [facility] SARS-COV-2 COVID-19 VACCINE - (MODERNA) Unknown Completed [facility] TDAP Unknown Completed [facility] Influenza Virus Vaccine Quad .5 mL IM 6+ MO (FLUZONE/FLULAVAL/F LUARIX) Unknown Completed [facility] SARS-COV-2 COVID-19 VACCINE - (MODERNA) Unknown Completed [facility] Vital Signs Vital Name Observation Time Observation Value Comments S ource Systolic blood pressure 2024-05-26 10:40:00 120 mm[Hg] [facility] Diastolic blood pressure 2024-05-26 10:40:00 59 mm[Hg] [facility] Heart rate 2024-05-26 10:40:00 58 /min [facility] Respiratory rate 2024-05-26 10:40:00 19 /min [facility] Oxygen saturation in Arterial blood by Pulse oximetry 2024-05-26 10:40:00 98 /min [facility] Body height 2024-05-26 07:02:00 167.6 cm [facility] Body weight 2024-05-26 07:02:00 94.802 kg [facility] BMI 2024-05-26 07:02:00 33.73 kg/m2 [facility] Systolic blood pressure 2024-05-26 10:40:00 120 mm[Hg] [facility] Diastolic blood pressure 2024-05-26 10:40:00 59 mm[Hg] [facility] Heart rate 2024-05-26 10:40:00 58 /min [facility] Respiratory rate 2024-05-26 10:40:00 19 /min [facility] Oxygen saturation in Arterial blood by Pulse oximetry 2024-05-26 10:40:00 98 /min [facility] Body height 2024-05-26 07:02:00 167.6 cm [facility] Body weight 2024-05-26 07:02:00 94.802 kg [facility] BMI 2024-05-26 07:02:00 33.73 kg/m2 [facility] BMI (Body Mass Index) 2024-04-03 00:00:00 34.2 kg/m2 [facility] Body Weight 2024-04-03 00:00:00 212.2 [lb_av] [facility] BP Diastolic 2024-04-03 00:00:00 88 mm[Hg] [facility] Height 2024-04-03 00:00:00 66 [in_i] [facility] BP Systolic 2024-04-03 00:00:00 128 mm[Hg] [facility] Body Weight 2024-01-23 00:00:00 212.2 [lb_av] [facility] BP Systolic 2024-01-23 00:00:00 174 mm[Hg] [facility] BP Diastolic 2024-01-23 00:00:00 95 mm[Hg] [facility] BMI (Body Mass Index) 2024-01-23 00:00:00 34.2 kg/m2 [facility] Height 2024-01-23 00:00:00 66 [in_i] [facility] height 2023-11-27 15:30:00 66 [in_i] [facility] weight-kg 2023-11-27 15:30:00 97[facility] 2023-11-27 15:30:00 34.7 kg/m2 [facility] temperature 2023-11-27 15:30:00 97.6 [degF] [facility] respiratory rate 2023-11-27 15:30:00 16 /min [facility] heart rate 2023-11-27 15:30:00 85 /min [facility] blood pressure systolic 2023-11-27 15:30:00 164 mm[Hg] [facility] blood pressure diastolic 2023-11-27 15:30:00 87 mm[Hg] [facility] Systolic blood pressure 2023-07-26 14:17:00 177 mm[Hg] [facility] Diastolic blood pressure 2023-07-26 14:17:00 92 mm[Hg] [facility] Heart rate 2023-07-26 14:17:00 97 /min [facility] Body temperature 2023-07-26 14:17:00 36.39 Verna [facility] Respiratory rate 2023-07-26 14:17:00 18 /min [facility] Body height 2023-07-26 14:17:00 167.6 cm [facility] Body weight 2023-07-26 14:17:00 100.472 kg [facility] BMI 2023-07-26 14:17:00 35.75 kg/m2 [facility] Oxygen saturation in Arterial blood by Pulse oximetry 2023-07-26 14:17:00 97 /min [facility] Systolic blood pressure 2023-06-08 07:00:00 112 mm[Hg] [facility] Diastolic blood pressure 2023-06-08 07:00:00 62 mm[Hg] [facility] Heart rate 2023-06-08 07:00:00 72 /min [facility] Respiratory rate 2023-06-08 07:00:00 20 /min [facility] Oxygen saturation in Arterial blood by Pulse oximetry 2023-06-08 07:00:00 97 /min [facility] Body weight 2023-06-08 02:41:00 108.863 kg [facility] BMI 2023-06-08 02:41:00 38.74 kg/m2 [facility] Body temperature 2023-06-08 02:38:00 36.67 Verna [facility] Body height 2023-06-08 02:34:00 167.6 cm [facility] Systolic blood pressure 2023-02-15 15:53:00 132 mm[Hg] [facility] Diastolic blood pressure 2023-02-15 15:53:00 73 mm[Hg] [facility] Heart rate 2023-02-15 15:53:00 74 /min [facility] Body temperature 2023-02-15 15:53:00 36.44 Verna [facility] Respiratory rate 2023-02-15 15:53:00 16 /min [facility] Body height 2023-02-15 15:53:00 167.6 cm [facility] Body weight 2023-02-15 15:53:00 100.336 kg [facility] BMI 2023-02-15 15:53:00 35.70 kg/m2 [facility] Oxygen saturation in Arterial blood by Pulse oximetry 2023-02-15 15:53:00 100 /min [facility] Systolic blood pressure 2022-11-13 14:08:00 117 mm[Hg] [facility] Diastolic blood pressure 2022-11-13 14:08:00 70 mm[Hg] [facility] Heart rate 2022-11-13 14:08:00 64 /min [facility] Respiratory rate 2022-11-13 14:08:00 12 /min [facility] Oxygen saturation in Arterial blood by Pulse oximetry 2022-11-13 14:08:00 99 /min [facility] Body temperature 2022-11-13 13:38:00 36.39 Verna [facility] Body height 2022-11-13 12:15:00 167.6 cm [facility] Body weight 2022-11-13 12:15:00 95.21 kg [facility] BMI 2022-11-13 12:15:00 33.88 kg/m2 [facility] Systolic blood pressure 2022-11-13 12:15:00 142 mm[Hg] [facility] Diastolic blood pressure 2022-11-13 12:15:00 66 mm[Hg] [facility] Heart rate 2022-11-13 12:15:00 77 /min [facility] Body temperature 2022-11-13 12:15:00 36 Verna [facility] Respiratory rate 2022-11-13 12:15:00 21 /min [facility] Body height 2022-11-13 12:15:00 167.6 cm [facility] Body weight 2022-11-13 12:15:00 95.21 kg [facility] BMI 2022-11-13 12:15:00 33.88 kg/m2 [facility] Oxygen saturation in Arterial blood by Pulse oximetry 2022-11-13 12:15:00 95 /min [facility] Systolic blood pressure 2022-11-03 15:35:00 154 mm[Hg] [facility] Diastolic blood pressure 2022-11-03 15:35:00 86 mm[Hg] [facility] Heart rate 2022-11-03 15:35:00 86 /min [facility] Body temperature 2022-11-03 15:35:00 37 Verna [facility] Respiratory rate 2022-11-03 15:35:00 18 /min [facility] Body height 2022-11-03 15:35:00 167.6 cm [facility] Body weight 2022-11-03 15:35:00 97.523 kg [facility] BMI 2022-11-03 15:35:00 34.70 kg/m2 [facility] Oxygen saturation in Arterial blood by Pulse oximetry 2022-11-03 15:35:00 99 /min [facility] Systolic blood pressure 2022-10-19 12:35:00 159 mm[Hg] Provider Notified [facility] Diastolic blood pressure 2022-10-19 12:35:00 85 mm[Hg] Provider Notified [facility] Heart rate 2022-10-19 12:35:00 94 /min [facility] Body temperature 2022-10-19 12:33:00 36.78 Verna [facility] Respiratory rate 2022-10-19 12:33:00 16 /min [facility] Body height 2022-10-19 12:33:00 167.6 cm [facility] Body weight 2022-10-19 12:33:00 96.616 kg [facility] BMI 2022-10-19 12:33:00 34.38 kg/m2 [facility] Oxygen saturation in Arterial blood by Pulse oximetry 2022-10-19 12:33:00 98 /min [facility] BP Systolic 2024-04-02 09:41:00 126 mm[Hg] Robert Cali BP Diastolic 2024-04-02 09:41:00 63 mm[Hg] Robert Cali Weight Measured 2024-04-02 09:41:00 212.00 pounds Robert Cali Height Measured 2024-04-02 09:41:00 66.00 inches Robert Cali Body Temperature 2024-04-02 09:41:00 98.70 degrees Robert Cali Heart Rate 2024-04-02 09:41:00 75.00 /min Robert Arnol Cali Respiratory Rate 2024-04-02 09:41:00 18.00 /min Robert Cali BP Systolic 2024-03-19 09:39:00 109 mm[Hg] Robert Arnol Cali BP Diastolic 2024-03-19 09:39:00 74 mm[Hg] Robert Cali Weight Measured 2024-03-19 09:39:00 213.80 pounds Robert Cali Height Measured 2024-03-19 09:39:00 66.00 inches Robert Cali Body Temperature 2024-03-19 09:39:00 98.10 degrees Robert Cali Heart Rate 2024-03-19 09:39:00 69.00 /min Robert F Chris Respiratory Rate 2024-03-19 09:39:00 18.00 /min Robert F Chris BP Systolic 2024-02-11 10:20:00 161 mm[Hg] Robert F Chris BP Diastolic 2024-02-11 10:20:00 85 mm[Hg] Robert F Chris Weight Measured 2024-02-11 10:20:00 Robert F Chris Height Measured 2024-02-11 10:20:00 Robert F Chris Body Temperature 2024-02-11 10:20:00 98.00 degrees Robert F Chris Heart Rate 2024-02-11 10:20:00 88.00 /min Robert F Chris Respiratory Rate 2024-02-11 10:20:00 17.00 /min Robert F Chris BP Systolic 2024-01-30 13:49:00 169 mm[Hg] Robert F Chris BP Diastolic 2024-01-30 13:49:00 85 mm[Hg] Robert F Chris Weight Measured 2024-01-30 13:49:00 214.80 pounds Robert F Chris Height Measured 2024-01-30 13:49:00 66.00 inches Robert F Chris Body Temperature 2024-01-30 13:49:00 98.70 degrees Robert F Chris Heart Rate 2024-01-30 13:49:00 87.00 /min Robert F Chris Respiratory Rate 2024-01-30 13:49:00 18.00 /min Robert F Chris BP Systolic 2024-01-18 13:37:00 137 mm[Hg] Robert F Chris BP Diastolic 2024-01-18 13:37:00 80 mm[Hg] Robert F Chris Weight Measured 2024-01-18 13:37:00 212.60 pounds Robert F Chris Height Measured 2024-01-18 13:37:00 66.00 inches Robert F Chris Body Temperature 2024-01-18 13:37:00 98.20 degrees Robert F Chris Heart Rate 2024-01-18 13:37:00 57.00 /min Robert F Chris Respiratory Rate 2024-01-18 13:37:00 18.00 /min Robert F Chris BP Systolic 2024-01-04 16:38:00 143 mm[Hg] Robert F Chris BP Diastolic 2024-01-04 16:38:00 93 mm[Hg] Robert F Chris Weight Measured 2024-01-04 16:38:00 212.20 pounds Robert Cali Height Measured 2024-01-04 16:38:00 66.00 inches Robert F Chris Body Temperature 2024-01-04 16:38:00 97.41 degrees Robert F Chris Heart Rate 2024-01-04 16:38:00 105.00 /min Robert F Chris Respiratory Rate 2024-01-04 16:38:00 17.00 /min Robert F Chris BP Systolic 2023-12-11 16:36:00 130 mm[Hg] Robert F Chris BP Diastolic 2023-12-11 16:36:00 74 mm[Hg] Robert F Chris Weight Measured 2023-12-11 16:36:00 218.00 pounds Robert F Chris Height Measured 2023-12-11 16:36:00 66.00 inches Robert F Chris Body Temperature 2023-12-11 16:36:00 98.10 degrees Robert F Chris Heart Rate 2023-12-11 16:36:00 87.00 /min Robert F Chris Respiratory Rate 2023-12-11 16:36:00 18.00 /min Robert F Chris BP Systolic 2023-12-05 13:56:00 169 mm[Hg] Robert F Chris BP Diastolic 2023-12-05 13:56:00 92 mm[Hg] Robert F Chris Weight Measured 2023-12-05 13:56:00 218.60 pounds Robert F Chris Height Measured 2023-12-05 13:56:00 66.00 inches Robert Cali Body Temperature 2023-12-05 13:56:00 98.00 degrees Robert F Chris Heart Rate 2023-12-05 13:56:00 92.00 /min Robert F Chris Respiratory Rate 2023-12-05 13:56:00 18.00 /min Robert F Chris BP Systolic 2023-11-27 08:18:00 168 mm[Hg] Robert F Chris BP Diastolic 2023-11-27 08:18:00 93 mm[Hg] Robert F Chris Weight Measured 2023-11-27 08:18:00 214.60 pounds Robert Cali Height Measured 2023-11-27 08:18:00 66.00 inches Robert Cali Body Temperature 2023-11-27 08:18:00 97.80 degrees Robert Cali Heart Rate 2023-11-27 08:18:00 88.00 /min Robert Cali Respiratory Rate 2023-11-27 08:18:00 18.00 /min Robert Cali Systolic blood pressure 2023-09-03 14:41:00 131 mm[Hg] [facility] Diastolic blood pressure 2023-09-03 14:41:00 73 mm[Hg] [facility] Heart rate 2023-09-03 14:41:00 93 /min [facility] Respiratory rate 2023-09-03 14:38:00 20 /min [facility] Body height 2023-09-03 14:38:00 167.6 cm [facility] Body weight 2023-09-03 14:38:00 100.2 kg [facility] BMI 2023-09-03 14:38:00 35.65 kg/m2 [facility] Systolic blood pressure 2023-07-26 14:17:00 177 mm[Hg] [facility] Diastolic blood pressure 2023-07-26 14:17:00 92 mm[Hg] [facility] Heart rate 2023-07-26 14:17:00 97 /min [facility] Body temperature 2023-07-26 14:17:00 36.39 Verna [facility] Respiratory rate 2023-07-26 14:17:00 18 /min [facility] Body height 2023-07-26 14:17:00 167.6 cm [facility] Body weight 2023-07-26 14:17:00 100.472 kg [facility] BMI 2023-07-26 14:17:00 35.75 kg/m2 [facility] Oxygen saturation in Arterial blood by Pulse oximetry 2023-07-26 14:17:00 97 /min [facility] Systolic blood pressure 2023-06-08 07:00:00 112 mm[Hg] [facility] Diastolic blood pressure 2023-06-08 07:00:00 62 mm[Hg] [facility] Heart rate 2023-06-08 07:00:00 72 /min [facility] Respiratory rate 2023-06-08 07:00:00 20 /min [facility] Oxygen saturation in Arterial blood by Pulse oximetry 2023-06-08 07:00:00 97 /min [facility] Body weight 2023-06-08 02:41:00 108.863 kg [facility] BMI 2023-06-08 02:41:00 38.74 kg/m2 [facility] Body temperature 2023-06-08 02:38:00 36.67 Verna [facility] Body height 2023-06-08 02:34:00 167.6 cm [facility] BP Systolic 2023-05-22 08:18:00 134 mm[Hg] Robert Cali BP Diastolic 2023-05-22 08:18:00 65 mm[Hg] Rboert Cali Weight Measured 2023-05-22 08:18:00 219.00 pounds Robert Cali Height Measured 2023-05-22 08:18:00 66.00 inches Robert Cali Body Temperature 2023-05-22 08:18:00 97.50 degrees Robert Cali Heart Rate 2023-05-22 08:18:00 83.00 /min Robert Cali Respiratory Rate 2023-05-22 08:18:00 19.00 /min Robert Cali Systolic blood pressure 2023-02-15 15:53:00 132 mm[Hg] [facility] Diastolic blood pressure 2023-02-15 15:53:00 73 mm[Hg] [facility] Heart rate 2023-02-15 15:53:00 74 /min [facility] Body temperature 2023-02-15 15:53:00 36.44 Verna [facility] Respiratory rate 2023-02-15 15:53:00 16 /min [facility] Body height 2023-02-15 15:53:00 167.6 cm [facility] Body weight 2023-02-15 15:53:00 100.336 kg [facility] BMI 2023-02-15 15:53:00 35.70 kg/m2 [facility] Oxygen saturation in Arterial blood by Pulse oximetry 2023-02-15 15:53:00 100 /min [facility] Systolic blood pressure 2023-01-22 15:03:00 144 mm[Hg] [facility] Diastolic blood pressure 2023-01-22 15:03:00 83 mm[Hg] [facility] Heart rate 2023-01-22 15:03:00 97 /min [facility] Respiratory rate 2023-01-22 15:00:00 18 /min [facility] Body height 2023-01-22 15:00:00 167.6 cm [facility] Body weight 2023-01-22 15:00:00 95.2 kg [facility] BMI 2023-01-22 15:00:00 33.88 kg/m2 [facility] BP Systolic 2022-12-20 09:52:00 109 mm[Hg] Robert [...] 2022-11-13 14:08:00 117 mm[Hg] [facility] Diastolic blood pressure 2022-11-13 14:08:00 70 mm[Hg] [facility] Heart rate 2022-11-13 14:08:00 64 /min [facility] Respiratory rate 2022-11-13 14:08:00 12 /min [facility] Oxygen saturation in Arterial blood by Pulse oximetry 2022-11-13 14:08:00 99 /min [facility] Body temperature 2022-11-13 13:38:00 36.39 Verna [facility] Body height 2022-11-13 12:15:00 167.6 cm [facility] Body weight 2022-11-13 12:15:00 95.21 kg [facility] BMI 2022-11-13 12:15:00 33.88 kg/m2 [facility] Systolic blood pressure 2022-11-03 15:35:00 154 mm[Hg] [facility] Diastolic blood pressure 2022-11-03 15:35:00 86 mm[Hg] [facility] Heart rate 2022-11-03 15:35:00 86 /min [facility] Body temperature 2022-11-03 15:35:00 37 Verna [facility] Respiratory rate 2022-11-03 15:35:00 18 /min [facility] Body height 2022-11-03 15:35:00 167.6 cm [facility] Body weight 2022-11-03 15:35:00 97.523 kg [facility] BMI 2022-11-03 15:35:00 34.70 kg/m2 [facility] Oxygen saturation in Arterial blood by Pulse oximetry 2022-11-03 15:35:00 99 /min [facility] BP Systolic 2022-10-12 10:06:00 140 mm[Hg] Roebrt Cali BP Diastolic 2022-10-12 10:06:00 78 mm[Hg] Robert Cali Weight Measured 2022-10-12 10:06:00 212.20 pounds Robert Cali Height Measured 2022-10-12 10:06:00 66.00 inches Robert Cali Body Temperature 2022-10-12 10:06:00 97.40 degrees Robert Cali Heart Rate 2022-10-12 10:06:00 93.00 /min Robert Cali Respiratory Rate 2022-10-12 10:06:00 Robert Cali Systolic blood pressure 2022-10-04 14:26:00 149 mm[Hg] [facility] Diastolic blood pressure 2022-10-04 14:26:00 76 mm[Hg] [facility] Heart rate 2022-10-04 14:26:00 78 /min [facility] Respiratory rate 2022-10-04 14:21:00 18 /min [facility] Body height 2022-10-04 14:21:00 167.6 cm [facility] Body weight 2022-10-04 14:21:00 96.843 kg [facility] BMI 2022-10-04 14:21:00 34.46 kg/m2 [facility] Systolic blood pressure 2022-07-26 13:22:00 135 mm[Hg] [facility] Diastolic blood pressure 2022-07-26 13:22:00 78 mm[Hg] [facility] Heart rate 2022-07-26 13:22:00 85 /min [facility] Respiratory rate 2022-07-26 13:22:00 18 /min [facility] Body height 2022-07-26 13:22:00 167.6 cm [facility] Body weight 2022-07-26 13:22:00 97.523 kg [facility] BMI 2022-07-26 13:22:00 34.70 kg/m2 [facility] BP Systolic 2022-06-27 13:54:00 132 mm[Hg] Robert F Chris BP Diastolic 2022-06-27 13:54:00 77 mm[Hg] Robert F Chris Weight Measured 2022-06-27 13:54:00 217.80 pounds Robert Cali Height Measured 2022-06-27 13:54:00 66.00 inches Robert F Chris Body Temperature 2022-06-27 13:54:00 97.80 degrees Robert Ambrose Chris Heart Rate 2022-06-27 13:54:00 90.00 /min Robert F Chris Respiratory Rate 2022-06-27 13:54:00 Robert F Chris BP Systolic 2022-06-21 08:56:00 135 mm[Hg] Robert F Chris BP Diastolic 2022-06-21 08:56:00 75 mm[Hg] Robert F Chris Weight Measured 2022-06-21 08:56:00 225.00 pounds Robert F Chris Height Measured 2022-06-21 08:56:00 66.00 inches Robert F Chris Body Temperature 2022-06-21 08:56:00 97.30 degrees Robert F Chris Heart Rate 2022-06-21 08:56:00 81.00 /min Robert F Chris Respiratory Rate 2022-06-21 08:56:00 Robert F Chris BP Systolic 2022-06-15 15:23:00 150 mm[Hg] Robert F Chris BP Diastolic 2022-06-15 15:23:00 85 mm[Hg] Robert F Chris Weight Measured 2022-06-15 15:23:00 224.80 pounds Robert F Chris Height Measured 2022-06-15 15:23:00 66.00 inches Robert F Chris Body Temperature 2022-06-15 15:23:00 98.10 degrees Robert F Chris Heart Rate 2022-06-15 15:23:00 98.00 /min Robert F Chris Respiratory Rate 2022-06-15 15:23:00 Robert F Chris BP Systolic 2022-05-23 11:20:00 135 mm[Hg] Robert F Chris BP Diastolic 2022-05-23 11:20:00 64 mm[Hg] Robert F Chris Weight Measured 2022-05-23 11:20:00 230.00 pounds Robert F Chris Height Measured 2022-05-23 11:20:00 66.00 inches Robert F Chris Body Temperature 2022-05-23 11:20:00 97.80 degrees Robert F Chris Heart Rate 2022-05-23 11:20:00 87.00 /min Robert F Chris Respiratory Rate 2022-05-23 11:20:00 Robert F Chris BP Systolic 2022-05-11 13:46:00 142 mm[Hg] Robert F Chris BP Diastolic 2022-05-11 13:46:00 60 mm[Hg] Robert F Chris Weight Measured 2022-05-11 13:46:00 225.80 pounds Robert F Chris Height Measured 2022-05-11 13:46:00 66.00 inches Robert F Chris Body Temperature 2022-05-11 13:46:00 97.80 degrees Robert F Chris Heart Rate 2022-05-11 13:46:00 92.00 /min Robert F Chris Respiratory Rate 2022-05-11 13:46:00 25.00 /min Robert F Chris Systolic blood pressure 2022-02-15 14:59:00 131 mm[Hg] [facility] Diastolic blood pressure 2022-02-15 14:59:00 70 mm[Hg] [facility] Heart rate 2022-02-15 14:59:00 81 /min [facility] Respiratory rate 2022-02-15 14:59:00 18 /min [facility] Body height 2022-02-15 14:59:00 167.6 cm [facility] Body weight 2022-02-15 14:59:00 102.967 kg [facility] BMI 2022-02-15 14:59:00 36.64 kg/m2 [facility] Respiratory rate 2022-01-11 17:11:00 18 /min [facility] Body height 2022-01-11 17:11:00 167.6 cm [facility] Body weight 2022-01-11 17:11:00 100.699 kg [facility] BMI 2022-01-11 17:11:00 35.83 kg/m2 [facility] Systolic blood pressure 2021-08-24 14:24:00 133 mm[Hg] [facility] Diastolic blood pressure 2021-08-24 14:24:00 73 mm[Hg] [facility] Heart rate 2021-08-24 14:24:00 69 /min [facility] Respiratory rate 2021-08-24 14:24:00 18 /min [facility] Body height 2021-08-24 14:24:00 167.6 cm [facility] Body weight 2021-08-24 14:24:00 100.245 kg [facility] BMI 2021-08-24 14:24:00 35.67 kg/m2 [facility] Oxygen saturation in Arterial blood by Pulse oximetry 2021-06-07 15:30:00 96 /min [facility] Body temperature 2021-06-07 14:20:30 37.44 Verna [facility] BP Systolic 2020-07-14 23:18:00 Robert Cali BP Diastolic 2020-07-14 23:18:00 Robert Cali Weight Measured 2020-07-14 23:18:00 Robert Cali Height Measured 2020-07-14 23:18:00 Robert Cali Body Temperature 2020-07-14 23:18:00 Robert Cali Heart Rate 2020-07-14 23:18:00 Robert Cali Respiratory Rate 2020-07-14 23:18:00 Robert Cali Procedures Procedure Date / Time Performed Performing Clinician Source BASIC METABOLIC PANEL 2024-05-26 06:45:00 Tristian [facility] LIPID PANEL W/CALCULATED LDL 2024-05-26 06:45:00 Tristian [facility] COMPLETE BLOOD COUNT W/DIFF AND PLATELET 2024-05-26 06:45:00 Tristian [facility] PT AND PTT 2024-05-26 06:45:00 Tristian [facility] COMPLETE BLOOD COUNT 2024-05-26 06:45:00 Tristian [facility] AUTOMATED DIFFERENTIAL 2024-05-26 06:45:00 Tristian [facility] BETA HCG QUALITATIVE URINE 2024-05-26 06:44:00 Tristian [facility] Site Care 2024-05-26 00:00:00 [facility] Cardiac catheterization 2024-05-23 00:00:00 [facility] Hysteroscopy Ablation 2024-03-07 00:00:00 [facility] US TRANSVAGINAL 2024-02-08 00:00:00 [facility] MAMMO, screening, digital, bilateral 2024-01-23 00:00:00 [facility] Medical URINALYSIS 2023-06-08 03:45:00 Rhiannon Hickman [facility] URINE DRUG (IMMUNOASSAY) - COMPREHENSIVE DRUG SCREEN W/O REFLEX 2023-06-08 03:45:00 Marysol Pabon [facility] URINALYSIS 2023-06-08 03:45:00 Rhiannon Hickman [facility] URINE DRUG (IMMUNOASSAY) - COMPREHENSIVE DRUG SCREEN W/O REFLEX 2023-06-08 03:45:00 Marysol Pabon [facility] CT STROKE ANGIOGRAM HEAD 2023-06-08 02:56:58 Rhiannon Hickman [facility] CT STROKE ANGIOGRAM NECK 2023-06-08 02:56:58 Rhiannon Hickman [facility] HB ECG ROUTINE & RHYTHM STRIP 2023-06-08 02:53:51 Rhiannon Hickman [facility] CT STROKE HEAD WO CONTRAST 2023-06-08 02:48:28 Rhiannon Hickman [facility] TROPONIN I 2023-06-08 02:45:00 Rhiannon Hickman [facility] BASIC METABOLIC PANEL (NA, K , CL, CO2, GLUCOSE, BUN, CREATININE, CA) 2023-06-08 02:45:00 Rhiannon Hickman [facility] LITHIUM 2023-06-08 02:45:00 Marysol Pabon [facility] ETHANOL 2023-06-08 02:45:00 Marysol Pabon [facility] CBC WITHOUT DIFF 2023-06-08 02:45:00 Rhiannon Hickman [facility] PROTHROMBIN TIME / INR 2023-06-08 02:45:00 Rhiannon Hickman [facility] ACTIVATED PARTIAL THRMPLAS CIPRIANO 2023-05-15 6 02:45:00 Rhiannon Hickman [facility] EXTRA TUBE LAV 2023-06-08 02:45:00 Marysol Pabon [facility] PROTHROMBIN TIME / INR 2023-06-08 02:45:00 Rhiannon Hickman [facility] ACTIVATED PARTIAL THRMPLAS CIPRIANO 2023-05-15 6 02:45:00 Rhiannon Hickman [facility] CBC WITHOUT DIFF 2023-06-08 02:45:00 Rhiannon Hickman [facility] TROPONIN I 2023-06-08 02:45:00 Rhiannon Hickman [facility] BASIC METABOLIC PANEL (NA, K , CL, CO2, GLUCOSE, BUN, CREATININE, CA) 2023-06-08 02:45:00 Rhiannon Hickman [facility] ETHANOL 2023-06-08 02:45:00 Marysol Pabon [facility] LITHIUM 2023-06-08 02:45:00 Marysol Pabon [facility] EXTRA TUBE LAV 2023-06-08 02:45:00 Marysol Pabon [facility] POCT GLUCOSE(AGE >30DAYS) 2023-06-08 02:39:00 Rhiannon Hickman [facility] POCT GLUCOSE(AGE >30DAYS) 2023-06-08 02:39:00 Rhiannon Hickman [facility] IRON PANEL 2023-02-15 16:30:00 VanessakarlElidia [facility] FERRITIN SERUM 2023-02-15 16:30:00 Eldiia Cordero [facility] LITHIUM 2023-01-22 16:35:00 Rosalind Freed [facility] CONSENT/REFUSAL FOR DIAGNOSI S AND TREATMENT 2023-01-22 14:56:09 Doctor Unassigned, [place] [facility] CONSENT/REFUSAL FOR DIAGNOSI S AND TREATMENT 2023-01-22 14:56:09 Doctor Unassigned, [place] [facility] SURGICAL PATHOLOGY EXAM 2022-11-13 13:05:00 Bossman [facility] ESOPHAGOGASTRODUODENOSCOPY 2022-11-13 12:47:00 Bossman [facility] COLONOSCOPY 2022-11-13 12:47:00 Bossman [facility] ESOPHAGOGASTRODUODENOSCOPY 2022-11-13 12:47:00 Bossman [facility] COLONOSCOPY 2022-11-13 12:47:00 Bossman [facility] COLONOSCOPY (ENDO) 2022-11-13 12:28:53 Jewel [facility] COLONOSCOPY (ENDO) 2022-11-13 12:28:53 Jewel [facility] COLONOSCOPY (ENDO) 2022-11-13 12:28:53 [facility] EGD (ENDO) 2022-11-13 12:19:29 [facility] EGD (ENDO) 2022-11-13 12:19:29 [facility] EGD (ENDO) 2022-11-13 12:19:29 [facility] CONSENT/REFUSAL FOR DIAGNOSI S AND TREATMENT 2022-11-13 12:17:09 Doctor Unassigned, [place] [facility] CONSENT/REFUSAL FOR DIAGNOSI S AND TREATMENT 2022-11-13 12:17:09 Doctor Unassigned, [place] [facility] ASSIGNMENT OF BENEFITS 2022-11-13 11:59:03 Doctor Unassigned, [place] [facility] ASSIGNMENT OF BENEFITS 2022-11-13 11:59:03 Doctor Unassigned, [place] [facility] ENDOSCOPY PROCEDURE DOCUMENTATION 2022-02 002 05:01:00 Doctor Unassigned, [place] [facility] ENDOSCOPY PROCEDURE DOCUMENTATION 2022-02 0-02 05:01:00 Doctor Unassigned, [place] [facility] COMP. METABOLIC PANEL (56791) 2022-11-03 16:24:00 Dora Newman [facility] CBC WITH DIFF 2022-11-03 16:24:00 Dora Newman [facility] POCT TEST 2022-11-03 16:24:00 Dora Newman [facility] CBC WITH DIFF 2022-11-03 16:24:00 Dora Newman [facility] POCT TEST 2022-11-03 16:24:00 Dora Newman [facility] COMP. METABOLIC PANEL (17536) 2022-11-03 16:24:00 Dora Newman [facility] URINALYSIS 2022-11-03 16:18:00 Dora Newman [facility] URINALYSIS 2022-11-03 16:18:00 Dora Newman [facility] RAPID STREP SCREEN FOR GROUP A 2022-10-14 2 16:14:00 Dora Newman [facility] RAPID STREP SCREEN FOR GROUP A 2022-10-14 2 16:14:00 Dora Newman [facility] THROAT CULTURE 2022-11-03 16:14:00 Dora Newman [facility] CONSENT/REFUSAL FOR DIAGNOSI S AND TREATMENT 2022-11-03 15:27:05 Doctor Unassigned, [place] [facility] CONSENT/REFUSAL FOR DIAGNOSI S AND TREATMENT 2022-11-03 15:27:05 Doctor Unassigned, [place] [facility] EMERGENCY SERVICES AGREEMENT S AND AUTHORIZATIONS 2022-11-03 05:01:00 Doctor Unassigned, [place] [facility] HELICOBACTER PYLORI ANTIGEN, FECAL BY EIA 2022-10-19 13:44:00 Elidia Cordero [facility] HELICOBACTER PYLORI ANTIGEN, FECAL BY EIA 2022-10-19 13:44:00 Elidia Cordero [facility] FERRITIN SERUM 2022-10-19 13:35:00 Elidia Cordero [facility] IRON PANEL 2022-10-19 13:35:00 Elidia Cordero [facility] CELIAC SCREEN 2022-10-19 13:35:00 Elidia Cordero [facility] LAB ONLY CELIAC SCREEN IGA 2022-10-19 13:35:00 Elidia Cordero [facility] IRON PANEL 2022-10-19 13:35:00 Elidia Cordero [facility] CELIAC SCREEN 2022-10-19 13:35:00 Elidia Cordero [facility] FERRITIN SERUM 2022-10-19 13:35:00 Elidia Cordero [facility] LAB ONLY CELIAC SCREEN IGA 2022-10-19 13:35:00 Elidia Cordero [facility] DISCLOSURE AND CONSENT, MEDI JAVAD AND SURGICAL PROCEDURES 2022-10-19 05:01:00 Doctor Unassigned, [place] [facility] DISCLOSURE AND CONSENT, [facility] JAVAD AND SURGICAL PROCEDURES 2022-10-19 05:01:00 Doctor Unassigned, [place] [facility] REFERRAL- REQUEST/RESPONSE 2022-10-12 05:01:00 Doctor Unassigned, [place] [facility] REFERRAL- REQUEST/RESPONSE 2022-10-12 05:01:00 Doctor Unassigned, [place] [facility] THYROID STIMULATING HORMONE 2022-10-05 15:15:00 Abdiaziz Rosalind [facility] COMP. METABOLIC PANEL ([id number]) 2022-10-05 15:15:00 Rosalind Freed [facility] LIPID PANEL ([id number])(TOTAL CHOLESTEROL, TRIGLYCERIDES, HDL) 2022-10-05 15:15:00 Freed, Rosalind [facility] LITHIUM 2022-10-05 15:15:00 Sara Hester [facility] CBC WITH DIFF 2022-10-05 15:15:00 Abdiaziz [facility] GLYCOSYLATED HEMOGLOBIN (A1C) 2022-10-05 15:15:00 Abdiaziz [facility] CBC WITH DIFF 2022-10-05 15:15:00 Abdiaziz [facility] COMP. METABOLIC PANEL ([id number]) 2022-10-05 15:15:00 Abdiaziz [facility] GLYCOSYLATED HEMOGLOBIN (A1C) 2022-10-05 15:15:00 Abdiaziz [facility] LIPID PANEL ([id number])(TOTAL CHOLESTEROL, TRIGLYCERIDES, HDL) 2022-10-05 15:15:00 Abdiaziz [facility] THYROID STIMULATING HORMONE 2022-10-05 15:15:00 Abdiaziz [facility] LITHIUM 2022-10-05 15:15:00 Sara Hester [facility] ASSIGNMENT OF BENEFITS 2022-10-04 14:17:30 Doctor Unassigned, [place] [facility] ASSIGNMENT OF BENEFITS 2022-10-04 14:17:30 Doctor Unassigned, [place] [facility] LITHIUM 2022-07-26 14:49:[address] [facility] PATIENT FINANCIAL POLICY 2022-07-26 13:16:12 Doctor Unassigned, [place] [facility] PATIENT FINANCIAL POLICY 2022-07-26 13:16:12 Doctor Unassigned, [place] [facility] EXTERNAL PROVIDER RECORDS 2022-04-08 06:01:00 Doctor Unassigned, [place] [facility] EXTERNAL PROVIDER RECORDS 2022-04-08 06:01:00 Doctor Unassigned, [place] [facility] EXTERNAL PROVIDER RECORDS 2022-02-21 06:01:00 Doctor Unassigned, [place] [facility] EXTERNAL PROVIDER RECORDS 2022-02-21 06:01:00 Doctor Unassigned, [place] [facility] LITHIUM 2022-02-15 15:58:00 Angela Sage [facility] CONSENT/REFUSAL FOR DIAGNOSI S AND TREATMENT 2022-01-11 17:10:16 Doctor Unassigned, [place] [facility] CONSENT/REFUSAL FOR DIAGNOSI S AND TREATMENT 2022-01-11 17:10:16 Doctor Unassigned, [place] [facility] EXTERNAL PROVIDER RECORDS 2020-11-26 05:01:00 Doctor Unassigned, [place] [facility] Tubal Ligation 1999-02-12 00:00:00 [facility] App[facility] Ch[facility] Delivery [facility] ical Encounters Start Date/Time End Date/Time Encounter Type Admission Type Attending Clinicians Care Facility Care Department Encounter ID Source 2024-04-15 13:23:01 Outpatient Jae Holloway [facility] [id number] [place] 2024-02-21 16:09:00 Outpatient Jae Holloway [facility] [id number] [facility] 2024-02-15 10:03:00 Outpatient Jae Holloway [facility] [id number] [place] 2023-12-14 15:51:00 Outpatient Jae Holloway [facility] [id number] [facility] 2023-11-27 15:05:01 Outpatient Jae Holloway [facility] [id number] [place] 2020-12-13 10:09:54 Emergency [facility] [id number] [facility] 2020-12-11 04:02:45 Emergency [facility] [id number] [facility] 2024-05-26 05:52:00 2024-05-26 10:45:00 Outpatient Elective TIERAMONTANALORA ESE ESE [id number] [facility] 2024-05-26 05:52:00 2024-05-26 10:45:00 Hospital Encounter Lora Culver [facility] 1.2.840.114 350.1.13.70 8.2.7.2.686 [id number] [facility] 2024-05-26 08:45:00 2024-05-26 08:45:00 Outpatient R [facility] [id number] [facility] 2024-05-14 13:51:00 2024-05-14 13:51:00 Outpatient S[facility] [id number] Robert Cali 2024-05-13 15:00:06 2024-05-13 15:00:06 Outpatient [facility] [id number] Robert Cali 2024-05-08 13:43:38 2024-05-08 13:43:38 Outpatient [facility] [id number] Robert Ambrose Chris 2024-04-10 00:00:00 2024-04-10 00:00:00 Ladi Coyle, CRYSTAL GROWING TECHNICIAN: [address], [facility] [address], [place] [address] , Ph. [facility] - GC_GCBZW_Gi [place]* [id number] [facility] 2024-04-07 08:45:00 2024-04-07 08:45:00 Outpatient DAVIDSON MEYER [facility] [id number] [facility] 2024-04-03 00:00:00 2024-04-03 00:00:00 ABAD Aleman: [address], [facility] [address], [place] [address] , Ph. [facility] - GC_GCBZW_[place]* [id number] [facility] 2024-04-03 00:00:00 2024-04-03 00:00:00 Travel 1.2.840.1 [id number] 3.104.2.7 .3.341013 .8 1.2.840.114 350.1.13.10 4.2.7.3.698 084.8 [id number] [facility] 2024-04-02 00:00:00 2024-04-02 00:00:00 Outpatient Visit [facility] [id number] Robert Cali 2024-03-24 08:59:35 2024-03-24 08:59:35 Outpatient [facility] [id number] Robert Cali 2024-03-19 09:33:08 2024-03-19 09:33:08 Outpatient [facility] [id number] Robert Cali 2024-03-19 00:00:00 2024-03-19 00:00:00 Outpatient Visit [facility] [id number] Robert Cali 2024-03-11 09:00:00 2024-03-11 09:00:00 Outpatient R [facility] [id number] [facility] 2024-03-07 00:00:00 2024-03-07 00:00:00 Talisha Chan MD: [address], [address], [place] [address] , Ph. [facility] - GC_GCBZW_[place]* [id number] [facility] 2024-02-20 00:00:00 2024-02-20 00:00:00 MARC Arteaga: [address], [address], [place] [address] , Ph. [facility] - GC_GCBZW_iG [place]* [id number] [facility] 2024-02-08 00:00:00 2024-02-08 00:00:00 Talisha Chan MD: [address], [address], [place] [address] , Ph. [facility] - GC_GCBZW_[place]* [id number] [facility] 2024-01-30 14:39:39 2024-01-30 14:39:39 Outpatient S[facility] [id number] Robert Cali 2024-01-30 00:00:00 2024-01-30 00:00:00 Outpatient Visit [facility] [id number] Robert Cali 2024-01-28 13:45:00 2024-01-28 13:45:00 Outpatient R [facility] [id number] [facility] 2024-01-25 00:00:00 2024-01-25 00:00:00 Travel 1.2.840.1 [id number] 3.104.2.7 .3.739879 .8 1.2.840.114 350.1.13.10 4.2.7.3.698 084.8 [id number] [facility] 2024-01-24 00:00:00 2024-01-24 00:00:00 Talisha Chan MD: [address], [facility] [address] [id number] , Ph. [facility] - GC_GCBZW_Gi potter [place]* [id number] [facility] 2024-01-23 00:00:00 2024-01-23 00:00:00 Talisha Chan MD: [address], [facility] [address], [place] [id number] , Ph. [facility] - GC_GCBZW_Gi potter [place]* [id number] [facility] 2024-01-22 09:30:00 2024-01-22 09:30:00 Outpatient R [facility] [id number] [facility] 2024-01-22 00:00:00 2024-01-22 00:00:00 (TEL) [facility] [id number] [facility] 2024-01-18 00:00:00 2024-01-18 00:00:00 Outpatient Visit [facility] [id number] Robert Cali 2024-01-13 00:00:00 2024-01-13 00:00:00 Travel 1.2.840.1 [id number] 3.104.2.7 .3.489459 .8 1.2.840.114 350.1.13.10 4.2.7.3.698 084.8 [id number] [facility] 2024-01-04 16:41:03 2024-01-04 16:41:03 Outpatient SFA [facility] [id number] Robert Cali 2024-01-04 00:00:00 2024-01-04 00:00:00 Outpatient Visit [facility] [id number] Robert Cali 2023-12-31 00:00:00 2023-12-31 00:00:00 (TEL) CLS CLS [id number] [facility] 2023-12-26 08:50:25 2023-12-26 08:50:25 Outpatient SFA [facility] [id number] Robert Cali 2023-12-19 10:24:52 2023-12-19 10:24:52 Outpatient SFA [facility] [id number] Robert Cali 2023-12-12 00:00:00 2023-12-12 00:00:00 (TEL) CLS CLS [id number] [facility] 2023-12-12 00:00:00 2023-12-12 00:00:00 (TEL) CLS CLS [id number] [facility] 2023-12-11 16:28:54 2023-12-11 16:28:54 Outpatient SFA [facility] [id number] Robert Cali 2023-12-11 00:00:00 2023-12-11 00:00:00 Outpatient Visit [facility] [id number] Robert Cali 2023-12-10 00:00:00 2023-12-10 00:00:00 (TEL) CLS CLS [id number] [facility] 2023-12-08 00:00:00 2023-12-08 00:00:00 (CLS/MRI) MRI Scan CLS CLS [id number] [facility] 2023-12-05 13:46:14 2023-12-05 13:46:14 Outpatient SFA [facility] [id number] Robert Cali 2023-11-30 00:00:00 2023-11-30 00:00:00 (TEL) CLS CLS [id number] [facility] 2023-11-29 00:00:00 2023-11-29 00:00:00 (EEG) EEG CLS CLS [id number] [facility] 2023-11-29 00:00:00 2023-11-29 00:00:00 (EMG) EMG CLS CLS [id number] [place] [facility] 2023-11-27 08:13:37 2023-11-27 08:13:37 Outpatient [facility] [id number] Robert Cali 2023-11-27 00:00:00 2023-11-27 00:00:00 Office Visit- Est Pt.- Level 4 CLS CLS [id number] [facility] 2023-11-27 00:00:00 2023-11-27 00:00:00 (TEL) CLS CLS [id number] [facility] 2023-11-27 00:00:00 2023-11-27 00:00:00 Outpatient Visit [facility] [id number] Robert Cali 2023-10-09 00:00:00 2023-11-10 18:22:03 Patient Secure Msg Doctor Unassigned, [place] 1.2.840.1 64456.1.1 3.104.2.7 .3.527384 .8 [id number] [facility] 2023-11-06 13:51:42 2023-11-06 13:51:42 Outpatient SFA [facility] [id number] Robert Cali 2023-10-02 00:00:00 2023-11-03 18:20:51 Patient Secure Msg Doctor Unassigned, [place] 1.2.840.1 13342.1.1 3.104.2.7 .3.918979 .8 [id number] [facility] 2023-09-28 00:00:00 2023-10-02 12:14:38 Patient Secure Tavon Florian 1.2.840.1 [id number] 3.104.2.7 .3.817466 .8 [id number] [facility] 2023-09-03 09:30:00 2023-09-03 11:20:53 Outpatient ALESHA AMBRIZ [facility] [id number] [facility] 2023-09-03 00:00:00 2023-09-03 00:00:00 Travel 1.2.840.1 [id number] 3.104.2.7 .3.780585 .8 1.2.840.114 350.1.13.10 4.2.7.3.698 084.8 [id number] [facility] 2023-08-31 00:00:00 2023-08-31 00:00:00 Travel 1.2.840.1 48456.1.1 3.104.2.7 .3.076399 .8 1.2.840.114 350.1.13.10 4.2.7.3.698 084.8 [id number] [facility] 2023-08-27 08:00:00 2023-08-27 08:00:00 Outpatient ALESHA AMBRIZ [facility] [id number] [facility] 2023-08-24 00:00:00 2023-08-24 00:00:00 Travel 1.2.840.1 [id number] 3.104.2.7 .3.959642 .8 1.2.840.114 350.1.13.10 4.2.7.3.698 084.8 [id number] [facility] 2023-08-08 00:00:00 2023-08-08 12:08:14 Case Management Elidia Cordero 1.2.840.1 02991.1.1 3.104.2.7 .3.903541 .8 [id number] [facility] 2023-07-02 00:00:00 2023-08-04 18:20:55 Patient Secure Dominic Ly 1.2.840.1 88890.1.1 3.104.2.7 .3.457985 .8 [id number] [facility] 2023-08-03 00:00:00 2023-08-03 08:18:24 Telephone Sharona Corderoklarissakarl [place] 1.2.840.1 14716.1.1 3.104.2.7 .3.279262 .8 [id number] [facility] 2023-07-30 00:00:00 2023-07-30 15:44:55 Telephone Elidia Corderodedra 1.2.840.1 93959.1.1 3.104.2.7 .3.299349 .8 [id number] [facility] 2023-07-26 09:30:00 2023-07-26 10:00:00 Office Visit Jose Westbrook Abdullah Azzam 1.2.840.1 47121.1.1 3.104.2.7 .3.172031 .8 [id number] [facility] 2023-07-26 09:30:00 2023-07-26 09:30:00 Outpatient JOSE TRAN [facility] [id number] [facility] 2023-07-26 00:00:00 2023-07-26 00:00:00 Travel 1.2.840.1 [id number] 3.104.2.7 .3.270973 .8 1.2.840.114 350.1.13.10 4.2.7.3.698 084.8 [id number] [facility] 2023-07-18 10:15:00 2023-07-18 10:15:00 Outpatient FARZANA UGALDE [facility] [id number] [facility] 2023-07-16 00:00:00 2023-07-16 00:00:00 Travel 1.2.840.1 57007.1.1 3.104.2.7 .3.612450 .8 1.2.840.114 350.1.13.10 4.2.7.3.698 084.8 [id number] [facility] 2023-07-02 00:00:00 2023-07-02 12:41:14 Telephone Elidia Cordero 1.2.840.1 22351.1.1 3.104.2.7 .3.721242 .8 [id number] [facility] 2023-06-13 00:00:00 2023-06-13 10:19:53 Letter (Out) 1.2.840.1 41151.1.1 3.104.2.7 .3.602501 .8 [id number] [facility] 2023-06-07 21:35:00 2023-06-08 02:20:00 Emergency X MARYSOL PABON [facility] ERT [id number] [facility] 2023-06-07 21:35:00 2023-06-08 02:20:00 Emergency Marysol Pabon [facility] T 1.2.840.1 42764.1.1 3.104.2.7 .3.154071 .8 [id number] [facility] 2023-06-07 00:00:00 2023-06-07 00:00:00 Travel 1.2.840.1 74727.1.1 3.104.2.7 .3.251149 .8 1.2.840.114 350.1.13.10 4.2.7.3.698 084.8 [id number] [facility] 2023-05-29 00:00:00 2023-06-04 10:54:35 Patient Secure Msg Dominic Keita 1.2.840.1 89337.1.1 3.104.2.7 .3.512468 .8 [id number] [facility] 2023-05-28 08:45:00 2023-05-28 08:45:00 Outpatient DAVIDSON MEYER [facility] [id number] [facility] 2023-05-25 00:00:00 2023-05-25 00:00:00 Travel 1.2.840.1 57226.1.1 3.104.2.7 .3.983802 .8 1.2.840.114 350.1.13.10 4.2.7.3.698 084.8 [id number] [facility] 2023-05-22 08:17:37 2023-05-22 08:17:37 [facility]patient [facility] [facility] [id number] Robert Cali 2023-05-11 00:00:00 2023-05-11 17:06:28 Telephone Elidia Cordero 1.2.840.1 81033.1.1 3.104.2.7 .3.814417 .8 [id number] [facility] 2023-05-09 00:00:00 2023-05-09 17:14:57 Patient Secure Msg Dominic Keita 1.2.840.1 62514.1.1 3.104.2.7 .3.859266 .8 [id number] [facility] 2023-05-08 10:00:00 2023-05-08 10:00:00 Outpatient EMILIA WU [facility] [id number] [facility] 2023-03-28 00:00:00 2023-04-28 18:05:02 Patient Secure Msg Doctor Unassigned, [place] 1.2.840.1 67327.1.1 3.104.2.7 .3.878990 .8 [id number] [facility] 2023-04-18 08:00:00 2023-04-18 08:00:00 Outpatient R KOMALBRAULIOFARZANA [facility] [id number] [facility] 2023-04-17 00:00:00 2023-04-17 00:00:00 Travel 1.2.840.1 14705.1.1 3.104.2.7 .3.457490 .8 1.2.840.114 350.1.13.10 4.2.7.3.698 084.8 [id number] [facility] 2023-04-11 13:00:00 2023-04-11 13:00:00 Outpatient R EMILIA SNOWDEN [facility] [id number] [facility] 2023-04-11 13:00:00 2023-04-11 13:00:00 Outpatient R EMILIA SNOWDEN [facility] [id number] [facility] 2023-04-04 08:00:00 2023-04-04 08:00:00 Outpatient R [facility] [id number] [facility] 2023-04-02 00:00:00 2023-04-02 00:00:00 Travel 1.2.840.1 42347.1.1 3.104.2.7 .3.772440 .8 1.2.840.114 350.1.13.10 4.2.7.3.698 084.8 [id number] [facility] 2023-03-09 00:00:00 2023-03-09 00:00:00 Telephone Elidia Cordero 1.2.840.1 47914.1.1 3.104.2.7 .3.113909 .8 [id number] [facility] 2023-03-08 00:00:00 2023-03-08 00:00:00 Telephone Elidia Cordero 1.2.840.1 37932.1.1 3.104.2.7 .3.165316 .8 [id number] [facility] 2023-02-28 10:15:00 2023-02-28 10:15:00 Outpatient SARA DELGADILLO KIMBERLY [facility] [id number] [facility] 2023-02-27 00:00:00 2023-02-27 00:00:00 Travel 1.2.840.1 01057.1.1 3.104.2.7 .3.269378 .8 1.2.840.114 350.1.13.10 4.2.7.3.698 084.8 [id number] [facility] 2023-02-15 10:30:00 2023-02-15 10:45:00 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 Jewel Cunha [facility] 1.2.840.1 53343.1.1 3.104.2.7 .3.460628 .8 [id number] [facility] 2023-02-15 09:30:00 2023-02-15 10:00:00 Office Visit Jewel Cunha Abdullah Azzam 1.2.840.1 49977.1.1 3.104.2.7 .3.325792 .8 [id number] [facility] 2023-02-15 09:30:00 2023-02-15 09:30:00 Outpatient JEWEL JARVIS [facility] [id number] [facility] 2023-02-15 00:00:00 2023-02-15 00:00:00 Travel 1.2.840.1 53145.1.1 3.104.2.7 .3.328407 .8 1.2.840.114 350.1.13.10 4.2.7.3.698 084.8 [id number] [facility] 2023-01-23 13:00:00 2023-01-23 13:00:00 Outpatient JENNY SESAY RIZWAN [facility] [id number] [facility] 2023-01-22 10:15:00 2023-01-22 10:30:00 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 Dexter Dias [facility] 1.2.840.1 82882.1.1 3.104.2.7 .3.741905 .8 [id number] [facility] 2023-01-22 09:30:00 2023-01-22 10:07:50 Outpatient DEXTER MIRELES [facility] [id number] [facility] 2023-01-22 00:00:00 2023-01-22 00:00:00 Orders Only Doctor Unassigned, [place] 1.2.840.1 98945.1.1 3.104.2.7 .3.567640 .8 [id number] [facility] 2023-01-22 00:00:00 2023-01-22 00:00:00 Travel 1.2.840.1 10158.1.1 3.104.2.7 .3.720404 .8 1.2.840.114 350.1.13.10 4.2.7.3.698 084.8 [id number] [facility] 2023-01-15 00:00:00 2023-01-15 00:00:00 Telephone Elidia Cordero 1.2.840.1 17809.1.1 3.104.2.7 .3.878102 .8 [id number] [facility] 2023-01-12 00:00:00 2023-01-12 00:00:00 Patient Secure Msg Dominic Keita 1.2.840.1 24327.1.1 3.104.2.7 .3.920905 .8 [id number] [facility] 2022-12-29 09:30:00 2022-12-29 09:30:00 Outpatient R JENNY ARRIAGA RIZWAN [facility] [id number] [facility] 2022-12-29 00:00:00 2022-12-29 00:00:00 Telephone Consuelo Leopoldokarl Mavis 1.2.840.1 64150.1.1 3.104.2.7 .3.980508 .8 [id number] [facility] 2022-12-29 00:00:00 2022-12-29 00:00:00 Telephone Consuelo Leopoldokarl Mavis 1.2.840.1 21746.1.1 3.104.2.7 .3.470726 .8 [id number] [facility] 2022-12-28 00:00:00 2022-12-28 00:00:00 Case Management VanessakralElidia 1.2.840.1 14545.1.1 3.104.2.7 .3.977699 .8 [id number] [facility] 2022-12-20 16:00:00 2022-12-20 16:46:31 Outpatient R [facility] [id number] [facility] 2022-12-20 09:49:08 2022-12-20 09:49:08 Outpatient [facility] [id number] Robert Cali 2022-12-19 00:00:00 2022-12-19 00:00:00 Travel 1.2.840.1 20541.1.1 3.104.2.7 .3.077641 .8 1.2.840.114 350.1.13.10 4.2.7.3.698 084.8 [id number] [facility] 2022-12-18 09:30:00 2022-12-18 09:30:00 Outpatient R [facility] [id number] [facility] 2022-12-18 00:00:00 2022-12-18 00:00:00 Telephone Consuelo Elidia Gamble 1.2.840.1 59436.1.1 3.104.2.7 .3.744211 .8 [id number] [facility] 2022-12-14 00:00:00 2022-12-14 00:00:00 Patient Secure Msg Doctor Unassigned, [place] 1..840.1 16689.1.1 3.104.2.7 .3.948778 .8 [id number] [facility] 2022-12-11 08:45:00 2022-12-11 08:45:00 Outpatient R [facility] [id number] [facility] 2022-12-10 00:00:00 2022-12-10 00:00:00 Outpatient GC_GCBZW_Ka diyala_S PRIV PRIV [id number] [facility] 2022-12-08 15:30:00 2022-12-08 15:30:00 Outpatient R JENNY ARRIAGA RIZWAN [facility] [id number] [facility] 2022-12-06 08:00:00 2022-12-06 08:00:00 Outpatient R ONEIDA MONTANA [facility] [id number] [facility] 2022-11-29 00:00:00 2022-11-29 00:00:00 Telephone Elidia Cordero 1.2.840.1 92076.1.1 3.104.2.7 .3.252086 .8 [id number] [facility] 2022-11-27 00:00:00 2022-11-27 00:00:00 Telephone Elidia Cordero 1.2.840.1 56481.1.1 3.104.2.7 .3.276251 .8 [id number] [facility] 2022-11-27 00:00:00 2022-11-27 00:00:00 Telephone Elidia Cordero 1.2.840.1 48635.1.1 3.104.2.7 .3.685201 .8 [id number] [facility] 2022-11-23 00:00:00 2022-11-23 00:00:00 Telephone Elidia Cordero 1.2.840.1 27199.1.1 3.104.2.7 .3.004254 .8 [id number] [facility] 2022-11-23 00:00:00 2022-11-23 00:00:00 Telephone Elidia Cordero 1.2.840.1 91334.1.1 3.104.2.7 .3.682615 .8 [id number] [facility] 2022-11-22 09:30:00 2022-11-22 09:30:00 Outpatient R [facility] [id number] [facility] 2022-11-16 00:00:00 2022-11-16 00:00:00 Telephone Elidia Cordero 1.2.840.1 45295.1.1 3.104.2.7 .3.141675 .8 [id number] [facility] 2022-11-16 00:00:00 2022-11-16 00:00:00 Patient Secure Msg Dominic Keita 1.2.840.1 86202.1.1 3.104.2.7 .3.090515 .8 [id number] [facility] 2022-11-13 06:59:00 2022-11-13 09:48:00 Outpatient R DOMINIC KEITA [facility] BRY [id number] [facility] 2022-11-13 06:59:00 2022-11-13 09:48:00 Hospital Encounter Dominic Keita 1.2.840.1 63284.1.1 3.104.2.7 .3.186911 .8 [id number] [facility] 2022-11-13 07:58:00 2022-11-13 08:33:00 Anesthesia Event Hunter Cruz Joan 1.2.840.1 57772.1.1 3.104.2.7 .3.509330 .8 [id number] [facility] 2022-11-13 07:15:00 2022-11-13 08:15:00 Surgery Dominic Keita 1.2.840.1 66610.1.1 3.104.2.7 .3.247171 .8 [id number] [facility] 2022-11-13 00:00:00 2022-11-13 00:00:00 Orders Only Doctor Unassigned, [place] 1.2.840.1 35678.1.1 3.104.2.7 .3.653465 .8 [id number] [facility] 2022-11-13 00:00:00 2022-11-13 00:00:00 Telephone Dominic Keita 1.2.840.1 34493.1.1 3.104.2.7 .3.553949 .8 [id number] [facility] 2022-11-13 00:00:00 2022-11-13 00:00:00 Travel 1.2.840.1 30266.1.1 3.104.2.7 .3.654446 .8 1.2.840.114 350.1.13.10 4.2.7.3.698 084.8 [id number] [facility] 2022-11-10 00:00:00 2022-11-10 00:00:00 Outpatient R RADIOLOGY [facility] [id number] [facility] 2022-11-10 00:00:00 2022-11-10 00:00:00 Patient Secure Msg Dominic Keita 1.2.840.1 46330.1.1 3.104.2.7 .3.087018 .8 [id number] [facility] 2022-11-09 00:00:00 2022-11-09 00:00:00 Patient Secure Msg Doctor Unassigned, [place] 1.2.840.1 93116.1.1 3.104.2.7 .3.623686 .8 [id number] [facility] 2022-11-07 00:00:00 2022-11-07 00:00:00 Patient Secure Msg Doctor Unassigned, [place] 1.2.840.1 58786.1.1 3.104.2.7 .3.060255 .8 [id number] [facility] 2022-11-03 10:36:00 2022-11-03 13:16:00 Emergency X DORA NEWMAN [facility] ERT [id number] [facility] 2022-11-03 10:36:00 2022-11-03 13:16:00 Emergency Dora Newman 1.2.840.1 61561.1.1 3.104.2.7 .3.004374 .8 [id number] [facility] 2022-11-03 00:00:00 2022-11-03 00:00:00 Travel 1.2.840.1 38601.1.1 3.104.2.7 .3.433210 .8 1.2.840.114 350.1.13.10 4.2.7.3.698 084.8 [id number] [facility] 2022-10-30 00:00:00 2022-10-30 00:00:00 Case Management Elidia Cordero 1.2.840.1 80793.1.1 3.104.2.7 .3.759452 .8 [id number] [facility] 2022-10-19 08:30:00 2022-10-19 08:45:00 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 Jewel Cunha [facility] 1.2.840.1 36872.1.1 3.104.2.7 .3.374090 .8 [id number] [facility] 2022-10-19 07:30:00 2022-10-19 08:15:30 Outpatient R GUERLINE JEWEL [facility] [id number] [facility] 2022-10-19 07:30:00 2022-10-19 08:15:30 Office Visit Jewel Cunha Abdullah Azzam 1.2.840.1 23185.1.1 3.104.2.7 .3.899447 .8 [id number] [facility] 2022-10-19 00:00:00 2022-10-19 00:00:00 Orders Only Doctor Unassigned, [place] 1.2.840.1 92891.1.1 3.104.2.7 .3.352994 .8 [id number] [facility] 2022-10-18 00:00:00 2022-10-18 00:00:00 Travel 1.2.840.1 50079.1.1 3.104.2.7 .3.857000 .8 1.2.840.114 350.1.13.10 4.2.7.3.698 084.8 [id number] [facility] 2022-10-12 09:56:06 2022-10-12 09:56:06 Outpatient [facility] [id number] Robert Cali 2022-10-12 00:00:00 2022-10-12 00:00:00 Orders Only Doctor Unassigned, [place] 1.2.840.1 19832.1.1 3.104.2.7 .3.467117 .8 [id number] [facility] 2022-10-05 10:15:00 2022-10-05 10:30:00 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 Kath Vences, [facility] 1.2.840.1 07577.1.1 3.104.2.7 .3.422954 .8 [id number] [facility] 2022-10-05 10:15:00 2022-10-05 10:15:00 Outpatient R KATH VENCES [facility] [id number] [facility] 2022-10-04 09:30:00 2022-10-04 10:30:11 Outpatient R DEXTER DIAS [facility] [id number] [facility] 2022-10-04 00:00:00 2022-10-04 00:00:00 Orders Only Doctor Unassigned, [place] 1.2.840.1 13929.1.1 3.104.2.7 .3.376762 .8 [id number] [facility] 2022-10-04 00:00:00 2022-10-04 00:00:00 Travel 1.2.840.1 39286.1.1 3.104.2.7 .3.001743 .8 1.2.840.114 350.1.13.10 4.2.7.3.698 084.8 [id number] [facility] 2022-10-02 00:00:00 2022-10-02 00:00:00 Travel 1.2.840.1 00880.1.1 3.104.2.7 .3.244687 .8 1.2.840.114 350.1.13.10 4.2.7.3.698 084.8 [id number] [facility] 2022-09-06 08:45:00 2022-09-06 08:45:00 Outpatient R SARA HESTER KIMBERLY [facility] [id number] [facility] 2022-09-06 00:00:00 2022-09-06 00:00:00 Travel 1.2.840.1 38916.1.1 3.104.2.7 .3.587883 .8 1.2.840.114 350.1.13.10 4.2.7.3.698 084.8 [id number] [facility] 2022-07-26 11:00:00 2022-07-26 11:15:00 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 Pathology Pcp-Lab 1.2.840.1 16738.1.1 3.104.2.7 .3.625240 .8 [id number] [facility] 2022-07-26 08:45:00 2022-07-26 09:37:46 Outpatient SARA DELGADILLO KIMBERLY [facility] [id number] [facility] 2022-07-26 00:00:00 2022-07-26 00:00:00 Orders Only Doctor Unassigned, [place] 1.2.840.1 11552.1.1 3.104.2.7 .3.570365 .8 [id number] [facility] 2022-07-26 00:00:00 2022-07-26 00:00:00 Travel 1.2.840.1 89979.1.1 3.104.2.7 .3.965696 .8 1.2.840.114 350.1.13.10 4.2.7.3.698 084.8 [id number] [facility] 2022-07-24 13:24:12 2022-07-24 13:24:12 Outpatient [facility] [id number] Robert Ambrose Chris 2022-06-27 13:49:18 2022-06-27 13:49:18 Outpatient [facility] [id number] Robert Ambrose Chris 2022-06-21 08:52:50 2022-06-21 08:52:50 Outpatient [facility] [id number] Robert Ambrose Chris 2022-06-15 15:23:34 2022-06-15 15:23:34 Outpatient [facility] [id number] Robert Cali 2022-05-31 08:45:00 2022-05-31 08:45:00 Outpatient SARA DELGADILLO KIMBERLY [facility] [id number] [facility] 2022-05-30 11:55:27 2022-05-30 11:55:27 Outpatient [facility] [id number] Robert Cali 2022-05-23 11:17:29 2022-05-23 11:17:29 Outpatient [facility] [id number] Robert Ambrose Chris 2022-05-12 08:06:11 2022-05-12 08:06:11 Outpatient [facility] [id number] Robert Ambrose [place] 2022-05-11 13:45:44 2022-05-11 13:45:44 Outpatient [facility] [id number] Robert Ambrose [place] 2022-04-08 00:00:00 2022-04-08 00:00:00 Orders Only Doctor Unassigned, [place] 1.2.840.1 30738.1.1 3.104.2.7 .3.600098 .8 [id number] [facility] 2022-02-21 00:00:00 2022-02-21 00:00:00 Orders Only Doctor Unassigned, [place] 1.2.840.1 18947.1.1 3.104.2.7 .3.029912 .8 [id number] [facility] 2022-02-15 13:30:00 2022-02-15 13:45:00 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 Pathology Pcp-Lab 1.2.840.1 68418.1.1 3.104.2.7 .3.583024 .8 [id number] [facility] 2022-02-15 08:45:00 2022-02-15 10:52:26 Outpatient DEXTER MIRELES [facility] [id number] [facility] 2022-02-15 00:00:00 2022-02-15 00:00:00 Travel 1.2.840.1 23199.1.1 3.104.2.7 .3.234291 .8 1.2.840.114 350.1.13.10 4.2.7.3.698 084.8 [id number] [facility] 2022-01-11 11:00:00 2022-01-11 12:39:46 Outpatient SARA DELGADILLO KIMBERLY [facility] [id number] [facility] 2022-01-11 00:00:00 2022-01-11 00:00:00 Orders Only Doctor Unassigned, [place] 1.2.840.1 98505.1.1 3.104.2.7 .3.405765 .8 [id number] [facility] 2022-01-11 00:00:00 2022-01-11 00:00:00 Travel 1.2.840.1 38797.1.1 3.104.2.7 .3.761526 .8 1.2.840.114 350.1.13.10 4.2.7.3.698 084.8 [id number] [facility] 2021-11-24 09:30:00 2021-11-24 09:30:00 Outpatient R IGOR SAAVEDRA [facility] [id number] [facility] 2021-11-16 11:00:00 2021-11-16 11:00:00 Outpatient SARA DELGADILLO KIMBERLY [facility] [id number] [facility] 2021-10-26 08:00:00 2021-10-26 08:00:00 Outpatient DEXTER MIRELES [facility] [id number] [facility] 2021-10-20 10:00:00 2021-10-20 10:00:00 Outpatient R IGOR SAAVEDRA [facility] [id number] [facility] 2021-10-03 14:30:00 2021-10-03 14:30:00 Outpatient R DAVDISON SUTHERLAND [facility] [id number] [facility] 2021-09-21 09:30:00 2021-09-21 09:30:00 Outpatient DEXTER MIRELES [facility] [id number] [facility] 2021-08-24 09:30:00 2021-08-24 10:41:34 [id number] 2021-08-24 00:00:00 2021-08-24 00:00:00 Travel 1.2.840.1 02058.1.1 3.104.2.7 .3.039922 .8 1.2.840.114 350.1.13.10 4.2.7.3.698 084.8 [id number] [facility] 2021-07-25 09:00:00 2021-07-25 09:00:00 [facility] [id number] [facility] 2021-06-22 11:15:00 2021-06-22 12:18:05 [facility] [id number] 2021-06-22 11:15:00 2021-06-22 11:15:00 [facility] [id number] [facility] 2021-06-22 00:00:00 2021-06-22 00:00:00 Travel 1.2.840.1 71860.1.1 3.104.2.7 .3.623520 .8 1.2.840.114 350.1.13.10 4.2.7.3.698 084.8 [id number] [facility] 2021-06-20 11:15:00 2021-06-20 11:15:00 [facility] [id number] [facility] 2021-06-20 11:15:00 2021-06-20 11:15:00 [facility] [id number] [facility] 2021-06-08 09:20:00 2021-06-08 09:20:00 Outpatient R HILARY MOORE [facility] [id number] [facility] 2021-06-08 00:00:00 2021-06-08 00:00:00 Patient Secure Igor Saavedra [facility] 1.2.840.114 350.1.13.10 4.2.7.2.686 [id number] [facility] 2021-06-07 09:13:00 2021-06-07 10:50:00 Emergency X MONROYGIGI [facility] ERT [id number] [facility] 2021-06-07 09:13:00 2021-06-07 10:50:00 Emergency Gigi Monroy [facility] 1.2.840.114 350.1.13.10 4.2.7.2.686 [id number] [facility] 2021-06-07 09:13:00 2021-06-07 10:50:00 Emergency Chinmay Monroyip 1.2.840.1 53763.1.1 3.104.2.7 .3.916671 .8 [id number] [facility] 2021-06-07 00:00:00 2021-06-07 00:00:00 Outpatient IGOR Castaneda RAI [facility] [id number] [facility] 2021-06-07 00:00:00 2021-06-07 00:00:00 Orders Only Doctor Unassigned, [place] [facility] 1.2.840.114 350.1.13.10 4.2.7.2.686 [id number] [facility] 2021-06-07 00:00:00 2021-06-07 00:00:00 Travel 1.2.840.1 31125.1.1 3.104.2.7 .3.096654 .8 1.2.840.114 350.1.13.10 4.2.7.3.698 084.8 [id number] [facility] 2021-06-07 00:00:00 2021-06-07 00:00:00 Orders Only Doctor Unassigned, [place] 1.2.840.1 39236.1.1 3.104.2.7 .3.550898 .8 [id number] [facility] 2021-06-03 00:00:00 2021-06-03 00:00:00 Travel 1.2.840.1 16888.1.1 3.104.2.7 .3.106893 .8 1.2.840.114 350.1.13.10 4.2.7.3.698 084.8 [id number] [facility] 2021-05-27 00:00:00 2021-05-27 00:00:00 Outpatient IGOR Castaneda RAI [facility] [id number] [facility] 2021-05-27 00:00:00 2021-05-27 00:00:00 [facility] [id number] 2021-05-25 00:00:00 2021-05-25 00:00:00 Patient Secure Msg Doctor Unassigned, [place] [facility] 1.2.840.114 350.1.13.10 4.2.7.2.686 [id number] [facility] 2021-05-25 00:00:00 2021-05-25 00:00:00 Patient Secure Msg Doctor Unassigned, [place] 1.2.840.1 89901.1.1 3.104.2.7 .3.435535 .8 [id number] [facility] 2021-05-20 00:00:00 2021-05-20 00:00:00 Telephone Zane Martinez 1.2.840.1 85358.1.1 3.104.2.7 .3.126751 .8 [id number] [facility] 2021-05-20 00:00:00 2021-05-20 00:00:00 Telephone Zane Martinez 1.2.840.1 82965.1.1 3.104.2.7 .3.981411 .8 [id number] [facility] 2021-05-18 00:00:00 2021-05-18 00:00:00 Travel 1.2.840.1 97733.1.1 3.104.2.7 .3.656255 .8 1.2.840.114 350.1.13.10 4.2.7.3.698 084.8 [id number] [facility] 2021-05-18 00:00:00 2021-05-18 00:00:00 Travel 1.2.840.1 24753.1.1 3.104.2.7 .3.707372 .8 1.2.840.114 350.1.13.10 4.2.7.3.698 084.8 [id number] [facility] 2021-05-17 13:15:00 2021-05-17 13:30:00 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 Pcp-Lab Igor Saavedra [facility] 1.2.840.114 350.1.13.10 4.2.7.2.686 [id number] [facility] 2021-05-17 13:15:00 2021-05-17 13:30:00 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 Igor Saavedra [facility] 1.2.840.1 06271.1.1 3.104.2.7 .3.848129 .8 [id number] [facility] 2021-05-17 13:15:00 2021-05-17 13:30:00 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 Igor Saavedra [facility] 1.2.840.1 87496.1.1 3.104.2.7 .3.759416 .8 [id number] [facility] 2021-05-17 09:00:00 2021-05-17 10:25:05 Outpatient R IGOR SAAVEDRA [facility] [id number] [facility] 2021-05-17 09:00:00 2021-05-17 10:25:05 Office Visit Igor Saavedra Neeharika 1.2.840.1 41979.1.1 3.104.2.7 .3.490553 .8 [id number] [facility] 2021-05-17 09:00:00 2021-05-17 10:25:05 Outpatient R IGOR SAAVEDRA [facility] [id number] [facility] 2021-05-17 09:30:00 2021-05-17 09:30:00 Outpatient R IGOR SAAVEDRA [facility] [id number] [facility] 2021-05-17 00:00:00 2021-05-17 00:00:00 Travel 1.2.840.1 38421.1.1 3.104.2.7 .3.489590 .8 1.2.840.114 350.1.13.10 4.2.7.3.698 084.8 [id number] [facility] 2021-05-17 00:00:00 2021-05-17 00:00:00 Travel 1.2.840.1 52188.1.1 3.104.2.7 .3.767051 .8 1.2.840.114 350.1.13.10 4.2.7.3.698 084.8 [id number] [facility] 2021-04-26 09:00:00 2021-04-26 09:00:00 Outpatient R [facility] [id number] [facility] 2021-04-26 09:00:00 2021-04-26 09:00:00 Outpatient R WENDY, AVELINO [facility] [id number] [facility] 2021-04-20 08:45:00 2021-04-20 08:45:00 Outpatient SARA DELGADILLO KIMBERLY [facility] [id number] [facility] 2021-04-11 08:40:00 2021-04-11 08:40:00 Outpatient SALLY FIGUEROA HOWARD [facility] [id number] [facility] 2021-04-11 08:40:00 2021-04-11 08:40:00 Outpatient SALLY FIGUEROA HOWARD [facility] [id number] [facility] 2021-03-21 08:00:00 2021-03-21 08:00:00 Outpatient SALLY FIGUEROA HOWARD [facility] [id number] [facility] 2021-03-17 00:00:00 2021-03-17 00:00:00 Patient Secure Msg Doctor Unassigned, [place] [facility] 1.2.840.114 350.1.13.10 4.2.7.2.686 [id number] [facility] 2021-03-17 00:00:00 2021-03-17 00:00:00 Patient Secure Msg Doctor Unassigned, [place] 1..840.1 02874.1.1 3.104.2.7 .3.355844 .8 [id number] [facility] 2021-03-17 00:00:00 2021-03-17 00:00:00 Patient Secure Msg Doctor Unassigned, [place] 1..840.1 02414.1.1 3.104.2.7 .3.240470 .8 [id number] [facility] 2021-03-16 13:15:00 2021-03-16 13:30:00 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 [place] [facility] 1..840.1 73305.1.1 3.104.2.7 .3.175533 .8 [id number] [facility] 2021-03-16 13:15:00 2021-03-16 13:30:00 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 Salbador [facility] 1.2.840.1 67501.1.1 3.104.2.7 .3.069434 .8 [id number] [facility] 2021-03-16 13:15:00 2021-03-16 13:15:00 Outpatient SALBADOR CRONIN [facility] [id number] [facility] 2021-03-16 12:00:00 2021-03-16 12:09:51 [facility] [id number] [facility] 2021-03-16 12:00:00 2021-03-16 12:09:51 Outpatient [facility] [id number] [facility] 2021-03-16 12:00:00 2021-03-16 12:00:00 Outpatient SARA DELGADILLO KIMBERLY [facility] [id number] [facility] 2021-03-16 00:00:00 2021-03-16 00:00:00 Travel 1.2.840.1 41309.1.1 3.104.2.7 .3.313535 .8 1.2.840.114 350.1.13.10 4.2.7.3.698 084.8 [id number] [facility] 2021-03-16 00:00:00 2021-03-16 00:00:00 Travel 1.2.840.1 14120.1.1 3.104.2.7 .3.363466 .8 1.2.840.114 350.1.13.10 4.2.7.3.698 084.8 [id number] [facility] 2021-03-11 09:44:00 2021-03-11 13:06:00 Emergency X HALIMA CONNOR [facility] ERT [id number] [facility] 2021-03-11 09:44:00 2021-03-11 13:06:00 Emergency Halima Connor 1.2.840.1 45204.1.1 3.104.2.7 .3.127088 .8 [id number] [facility] 2021-03-11 09:44:00 2021-03-11 13:06:00 Emergency X GEETA HALIMA [facility] ERT [id number] [facility] 2021-03-11 09:44:00 2021-03-11 13:06:00 Emergency Geeta Halima Cates 1.2.840.1 41764.1.1 3.104.2.7 .3.600891 .8 [id number] [facility] 2021-03-11 09:44:00 2021-03-11 13:06:00 Emergency X HALIMA CONNOR [facility] ERT [id number] [facility] 2021-03-11 09:44:00 2021-03-11 09:44:00 Emergency X HALIMA CONNOR [facility] ERT [id number] [facility] 2021-03-11 00:00:00 2021-03-11 00:00:00 Travel 1.2.840.1 62517.1.1 3.104.2.7 .3.686200 .8 1.2.840.114 350.1.13.10 4.2.7.3.698 084.8 [id number] [facility] 2021-03-11 00:00:00 2021-03-11 00:00:00 Travel 1.2.840.1 95260.1.1 3.104.2.7 .3.698874 .8 1.2.840.114 350.1.13.10 4.2.7.3.698 084.8 [id number] [facility] 2021-03-08 15:00:00 2021-03-08 15:15:00 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 Salbador [facility] 1.2.840.1 27535.1.1 3.104.2.7 .3.781868 .8 [id number] [facility] 2021-03-08 15:00:00 2021-03-08 15:15:00 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 Salbador [facility] 1.2.840.1 26052.1.1 3.104.2.7 .3.433513 .8 [id number] [facility] 2021-03-08 15:00:00 2021-03-08 15:00:00 Outpatient R SALBADOR LOCKWOOD [facility] [id number] [facility] 2021-01-31 10:15:00 2021-01-31 10:55:06 [id number] 2020-12-29 08:00:00 2020-12-29 08:41:00 Outpatient R LARISSA [facility] [id number] [facility] 2020-12-29 08:00:00 2020-12-29 08:41:00 Outpatient R SELF [facility] [id number] [facility] 2020-12-29 00:00:00 2020-12-29 00:00:00 Travel 1.2.840.1 40861.1.1 3.104.2.7 .3.047519 .8 1.2.840.114 350.1.13.10 4.2.7.3.698 084.8 [id number] [facility] 2020-12-29 00:00:00 2020-12-29 00:00:00 Travel 1.2.840.1 74458.1.1 3.104.2.7 .3.376968 .8 1.2.840.114 350.1.13.10 4.2.7.3.698 084.8 [id number] [facility] 2020-12-22 09:30:00 2020-12-22 09:30:00 Outpatient R SELF, DEXTER [facility] [id number] [facility] 2020-12-22 09:30:00 2020-12-22 09:30:00 Outpatient R DEXTER DIAS [facility] [id number] [facility] 2020-11-26 00:00:00 2020-11-26 00:00:00 Orders Only Doctor Unassigned, [place] [facility] 1.2.840.114 350.1.13.10 4.2.7.2.686 [id number] 009 [id number] [facility] 2020-11-10 09:30:00 2020-11-10 09:30:00 Outpatient R ROBERT NOWAK [facility] [id number] [facility] 2020-11-10 00:00:00 2020-11-10 00:00:00 Orders Only Doctor Unassigned, [place] 1.2.840.1 95105.1.1 3.104.2.7 .3.356467 .8 [id number] [facility] 2020-11-10 00:00:00 2020-11-10 00:00:00 Travel 1.2.840.1 47718.1.1 3.104.2.7 .3.653659 .8 1.2.840.114 350.1.13.10 4.2.7.3.698 084.8 [id number] [facility] 2020-10-11 08:00:00 2020-10-11 08:00:00 Outpatient R SELF DEXTER [facility] [id number] [facility] 2020-10-11 00:00:00 2020-10-11 00:00:00 Travel 1.2.840.1 19044.1.1 3.104.2.7 .3.712730 .8 1.2.840.114 350.1.13.10 4.2.7.3.698 084.8 [id number] [facility] 2020-09-13 08:00:00 2020-09-13 08:00:00 Outpatient DEXTER MIRELES [facility] [id number] [facility] 2020-09-13 00:00:00 2020-09-13 00:00:00 Travel 1.2.840.1 14256.1.1 3.104.2.7 .3.654109 .8 1.2.840.114 350.1.13.10 4.2.7.3.698 084.8 [id number] [facility] 2020-09-02 16:12:00 2020-09-02 20:21:00 Emergency Patti Rose 1.2.840.1 67836.1.1 3.104.2.7 .3.948692 .8 [id number] [facility] 2020-09-02 16:12:00 2020-09-02 20:21:00 Emergency Patti Rose [facility] 1.2.840.114 350.1.13.10 4.2.7.2.686 [id number] 2020-09-02 00:00:00 2020-09-02 00:00:00 Travel 1.2.840.1 12746.1.1 3.104.2.7 .3.804071 .8 1.2.840.114 350.1.13.10 4.2.7.3.698 084.8 [id number] [facility] 2020-09-02 00:00:00 2020-09-02 00:00:00 Orders Only Doctor Unassigned, [place] 1.2.840.1 77544.1.1 3.104.2.7 .3.542455 .8 [id number] [facility] 2020-09-02 00:00:00 2020-09-02 00:00:00 Orders Only Doctor Unassigned, [place] [facility] 1.2.840.114 350.1.13.10 4.2.7.2.686 [id number] [id number] 2020-08-25 09:15:00 2020-08-25 09:15:00 Outpatient R [facility] [id number] [facility] 2020-08-09 08:45:00 2020-08-09 08:45:00 Outpatient R SELFDEXTER [facility] [id number] [facility] 2020-06-28 13:45:00 2020-06-28 13:45:00 Outpatient R JORDON LOCKWOODBENICarlo [facility] [id number] [facility] 2020-06-21 15:15:00 2020-06-21 15:15:00 Outpatient R DEXTER DIAS [facility] [id number] [facility] 2020-06-07 08:45:00 2020-06-07 08:45:00 Outpatient R SELFDEXTER [facility] [id number] [facility] 2020-05-25 08:30:00 2020-05-25 08:30:00 Outpatient R VICKIEBELACRISTO [facility] [id number] [facility] 2020-03-15 13:00:00 2020-03-15 13:00:00 Outpatient R SALBADOR LOCKWOOD [facility] [id number] [facility] 2020-03-08 13:00:00 2020-03-08 13:00:00 Outpatient R DEXTER DIAS [facility] [id number] [facility] 2020-02-16 11:00:00 2020-02-16 11:00:00 Outpatient R SELFDEXTER [facility] [id number] [facility] 2020-01-27 11:45:00 2020-01-27 11:45:00 Outpatient R SELFDEXTER [facility] [id number] [facility] 2020-01-19 08:00:00 2020-01-19 08:00:00 Outpatient R SELFDEXTER [facility] [id number] [facility] 2019-12-22 08:45:00 2019-12-22 08:45:00 Outpatient DEXTER MIRELES [facility] [id number] [facility] 2019-12-05 10:45:00 2019-12-05 10:45:00 Outpatient Tonya MORAES JEWEL [facility] [id number] [facility] 2019-10-23 09:15:00 2019-10-23 09:15:00 Outpatient KATH GLORIA [facility] [id number] [facility] 2019-10-15 11:30:00 2019-10-15 11:30:00 Outpatient Tonya NOWAK ROBERT [facility] [id number] [facility] 2019-10-01 14:30:00 2019-10-01 14:30:00 Outpatient ROBERT MURILLO [facility] [id number] [facility] 2019-09-01 08:45:00 2019-09-01 08:45:00 Outpatient Tonya DIASDEXTER [facility] [id number] [facility] 2019-08-06 13:00:00 2019-08-06 13:00:00 Outpatient ANGELA HERRERA [facility] [id number] [facility] Results Test Description Test Time Test Comments Results Result Co mments Source [facility]iodothyronine (T3) Free [Mass/volume] in Serum or Plasma 2024-04-07 00:00:00* Test Item Value Reference Range Interpretation Comme nts free T3 (test code = free T3) 3.0 pg/mL 2.0-4.7 [facility] MedicalDehydroepiandrosterone sulfate (DHEA-S) [Mass/volume] in Serum or [id number] 00:00:00* Test Item Value Reference Range Interpretation Comme nts DHEA-S (test code = DHEA-S) 51.6 ug/dL 98.8-340.0 L [facility] MedicalThyrotropin [Units/volume] in Serum or [id number] 00:00:00* Test Item Value Reference Range Interpretation Comme nts TSH (test code = TSH) 1.070 uIU/mL 0.500-4.530 [facility] MedicalComprehensive metabolic 2000 panel - Serum or [id number] 00:00:00* Test Item Value Reference Range Interpretation Comme nts sodium (test code = sodium) 138 mmol/L 136-145 potassium (test code = potassium) 5.1 mmol/L 3.5-5.5 chloride (test code = chloride) 98 mmol/L 98-107 CO2 (test code = CO2) 27 mmol/ L 20-29 glucose (test code = glucose) 90 mg/dL 70-99 BUN (test code = BUN) 13 mg/dL 6-24 creatinine (test code = creatinine) 0.8 mg/dL 0.6-1.0 calcium (test code = calcium) 10.0 mg/dL 8.5-10.5 total protein (test code = total protein) 6.9 g/dL 6.0-8.3 albumin (test code = albumin) 4.6 g/dL 3.5-5.2 total bilirubin (test code = total bilirubin) 0.2 mg/dL 0.0-1.2 alkaline phosphatase (test code = alkaline phosphatase) 171 U/L 44-121 H AST (SGOT) (test code = AST (SGOT)) 27 U/L 0-40 ALT (SGPT) (test code = ALT (SGPT)) 47 U/L 0-32 H globulin (test code = globulin) 2.3 g/dL 1.7-3.7 A/G ratio (test code = A/G ratio) 2.0 calc. 1.1-2.9 BUN/creatinine ratio (test code = BUN/creatinine ratio) 16.3 calc 10.0-28.0 eGFR (test code = eGFR) 91.967 mL/min/1.73A? >60.000 [facility] Sraynlb51-Jovtagzmqjqwsp D3+25-Hydroxyvitamin D2 [Mass/volume] in Serum or [id number] 00:00:00* Test Item Value Reference Range Interpretation Comme nts vitamin D III (test code = v itamin D III) 14.6 NG/mL 32.0-100.0 L [facility] MedicalTestosterone free and total panel [Mass/volume] - Serum or Plasma 2024-04-07 00:00:00* Test Item Value Reference Range Interpretation Comme nts free testosterone (test code = free testosterone) 0.13 NG/dL 0.12-0.64 sex hormone binding globulin (test code = sex hormone binding globulin) 46.70 nmol/L 10.00-57.00 testosterone (test code = testosterone) 9.3 NG/dL 8.4-48.1 [facility] MedicalInsulin [Units/volume] in Serum or [id number] 00:00:00* Test Item Value Reference Range Interpretation Comme nts insulin (test code = insulin) 23.2 uIU/mL 2.6-24.9 [facility] MedicalHemoglobin A1c/Hemoglobin.total in [id number] 00:00:00* Test Item Value Reference Range Interpretation Comme nts Hemoglobin A1c/Hemoglobin.to lorraine in Blood (test code = 4548-4) 5.0 % <5.6 [facility] Medicalinfectious disease [id number] 00:00:00* Test Item Value Reference Range Interpretation [...] staphylococcus epidermidis, haemolyticus, lugdunensis) 0.000 ppm 19.961-24.689 [facility] [id number] 07:30:50* Test Item Value Reference Range Interpretation Comme nts FERRITIN (test code = 2075) 18 NG/ML 13-200 UNLESS OTHERWISE INDICATED, ALL TESTING PERFORMED AT [facility] [address] [place] [address] PIANO REGULATOR: CHARLA HERNANDEZ M.D. [place] NUMBER [id number] [facility] [place]. [id number] COMPREHENSIVE METABOLIC [id number] 07:30:06* Test Item Value Reference Range Interpretation Comme nts GLUCOSE (test code = 2217) 98 MG/DL 70-99 BUN (test code = 2208) 12 MG/DL 6-20 CREATININE (test code = 2214) 0.80 MG/DL 0.60-1.30 eGFR (2020 CKD-EPI) (test co de = 53706) 92 ML/MIN/1.73 >60 CALC BUN/CREAT (test code = 2235) 15 RATIO 6-28 SODIUM (test code = 2231) 139 MEQ/L 133-146 POTASSIUM (test code = 2228) 3.7 MEQ/L 3.5-5.4 CHLORIDE (test code = 2215) 101 MEQ/L 95-107 CARBON DIOXIDE (test code = 2206) 25 MEQ/L 19-31 CALCIUM (test code = 2208) 9.8 MG/DL 8.5-10.5 PROTEIN, TOTAL (test code = 2228) 6.7 G/DL 6.1-8.3 ALBUMIN (test code = 2200) 4.4 G/DL 3.5-5.2 CALC GLOBULIN (test code = 2239) 2.3 G/DL 1.9-3.7 CALC A/G RATIO (test code = 2233) 1.9 RATIO 1.0-2.6 BILIRUBIN, TOTAL (test code = 2206) 0.2 MG/DL <=1.2 ALKALINE PHOSPHATASE (test code = 2203) 168 U/L 40-118 H AST (test code = 2217) 18 U/L 9-40 ALT (test code = 2218) 30 U/L 5-40 CBC W/AUTO DIFF WITH [id number] 05:07:43* Test Item Value Reference Range Interpretation [...] = 1065) 0.0 /100 WBC'S See_Comment [Automated Sympoza ge] The system which generated this result [...] 0.00-0.10 ABS NUCLEATED RBCS (test code = 00522) 0.00 K/UL 0.00-0.11 CBC W/AUTO [id number] 00:00:00* Test Item Value Reference Range Interpretation [...] ABS NUCLEATED RBCS (test cod e = 39519) 0.00 K/UL Robert CaliCOMPREHENSIVE METABOLIC [id number] 00:00:00* Test Item Value Reference Range Interpretation Comme nts GLUCOSE (test code = 2217) 98 MG/DL BUN (test code = 2208) 12 MG/DL CREATININE (test code = 2214) 0.80 MG/DL eGFR (2020 CKD-EPI) (test co de = 59274) 92 ML/MIN/1.73 CALC BUN/CREAT (test code = 2235) 15 RATIO SODIUM (test code = 2231) 139 MEQ/L POTASSIUM (test code = 2228) 3.7 MEQ/L CHLORIDE (test code = 2215) 101 MEQ/L CARBON DIOXIDE (test code = 2206) 25 MEQ/L CALCIUM (test code = 2209) 9.8 MG/DL PROTEIN, TOTAL (test code = 2229) 6.7 G/DL ALBUMIN (test code = 2201) 4.4 G/DL CALC GLOBULIN (test code = 2240) 2.3 G/DL CALC A/G RATIO (test code = 2234) 1.9 RATIO BILIRUBIN, TOTAL (test code = 2207) 0.2 MG/DL ALKALINE PHOSPHATASE (test code = 2204) 168 U/L AST (test code = 2218) 18 U/L ALT (test code = 2219) 30 U/L Robert [id number] 00:00:00* Test Item Value Reference Range Interpretation Comme nts FERRITIN (test code = 2075) 18 NG/ML Robert Calipregnancy test, [id number] 08:16:44* Test Item Value Reference Range Interpretation Comme nts HCG (test code = HCG) negative [facility] Medicaligp, apt HPV,rfx 16/18,[id number] 00:00:00* Test Item Value Reference Range Interpretation Comme nts diagnosis: (test code = diagnosis:) SPRCS specimen adequacy: (test cod e = specimen adequacy:) SPRCS performed by: (test code = p erformed by:) SPRCS note: (test code = note:) PAPSMR test methodology: (test code = test methodology:) IGLPAP HPV aptima (test code = HPV aptima) NEGATIVE negative [facility] Pathology biopsy [id number] 00:00:00Clinical InformationPathologistA SourceA Gross DescriptionA DiagnosisA CommentPrivia Medicalurinalysis, [id number] 00:00:00* Test Item Value Reference Range Interpretation [...] A [facility] MedicalBacteria identified in Urine by [id number] 00:00:00* Test Item Value Reference Range Interpretation Comme nts urine culture, routine (test code = urine culture, routine) Final report result 1 (test code = result 1) MUG Jose Raultriston MedicalUA/M w/rflx culture, [id number] 00:00:00* Test Item Value Reference Range Interpretation [...] = urinalysis reflex) FLEX [facility] Medicalpregnancy test, [id number] 15:14:21* Test Item Value Reference Range Interpretation Comme nts HCG (test code = HCG) negative [facility] MedicalThyrotropin [Units/volume] in Serum or [id number] 00:00:00* Test Item Value Reference Range Interpretation Comme nts TSH (test code = TSH) 1.100 uIU/mL 0.500-4.530 [facility] MedicalEstradiol (E2) [Mass/volume] in Serum or [id number] 00:00:00 * Test Item Value Reference Range Interpretation Comme nts estradiol (test code = estradiol) 81.3 pg/mL 6.1-91.9 [facility] MedicalFollitropin [Units/volume] in Serum or [id number] 00:00:00* Test Item Value Reference Range Interpretation Comme nts FSH (test code = FSH) 3.9 mIU/mL [facility] MedicalChlamydia trachomatis and Neisseria gonorrhoeae rRNA panel - Specimen by KELI with probe [id number] 00:00:00* Test Item Value Reference Range Interpretation Comme nts aptima combo 2 swab (CT) (te st code = aptima combo 2 swab (CT)) CT NEG negative aptima combo 2 swab (GC) (te st code = aptima combo 2 swab (GC)) GC NEG negative [facility] Medicalurinalysis, [id number] 08:44:12* Test Item Value Reference Range Interpretation Comme nts Leukocytes (test code = Leukocytes) 1+ Nitrite (test code = Nitrite) negative Urobilinogen (test code = Urobilinogen) Normal Protein (test code = Protein) Negative pH (test code = pH) 6.0 Blood (test code = Blood) Non-Hemolyzed: Moderate Specific [place] (test code = Specific [place]) 1.020 Ketone (test code = Ketone) Negative Bilirubin (test code = Bilirubin) Negative Glucose (test code = Glucose) Negative Appearance (test code = Appearance) Slightly Cloudy Color (test code = Color) Yellow [facility] MedicalANA (ANTI-NUCLEAR AB) WITH REFLEX [id number] 00:00:00* Test Item Value Reference Range Interpretation Comme nts ANTI-NUCLEAR ANTIBODIES (aram t code = 3506) NEGATIVE YAZMIN PATTERN (REPORTED TITER) (test code = 61453) SEE BELOW HOMOGENEOUS (test code = 29282) NEGATIVE TITER SPECKLED (test code = 715695) NEGATIVE TITER DENSE FINE SPECKLED (test co de = 58369) NEGATIVE TITER CENTROMERE (test code = 313993) NEGATIVE TITER COARSE SPECKLED (test code = 992225) NEGATIVE TITER DISCRETE NUCLEAR DOTS (test code = 603799) NEGATIVE TITER NUCLEOLAR (test code = 924917) NEGATIVE TITER NUCLEAR MEMBRANE (test code = 776401) NEGATIVE TITER CYTO. RETICULAR (SANDY) (test code = 926517) NEGATIVE COMMENTS (test code = 242210) NONE METHOD (test code = 09255) (NOTE) Robert Bailon (ANTI-NUCLEAR AB) WITH REFLEX [id number] 00:00:00* Test Item Value Reference Range Interpretation Comme nts ANTI-NUCLEAR ANTIBODIES (aram t code = 3506) NEGATIVE YAZMIN PATTERN (REPORTED TITER) (test code = 82771) SEE BELOW HOMOGENEOUS (test code = 62624) NEGATIVE TITER SPECKLED (test code = 000079) NEGATIVE TITER DENSE FINE SPECKLED (test co de = 66672) NEGATIVE TITER CENTROMERE (test code = 342191) NEGATIVE TITER COARSE SPECKLED (test code = 873704) NEGATIVE TITER DISCRETE NUCLEAR DOTS (test code = 991216) NEGATIVE TITER NUCLEOLAR (test code = 285466) NEGATIVE TITER NUCLEAR MEMBRANE (test code = 921444) NEGATIVE TITER CYTO. RETICULAR (SANDY) (test code = 408994) NEGATIVE COMMENTS (test code = 566165) NONE METHOD (test code = 84431) (NOTE) Robert Bailon (ANTI-NUCLEAR AB) WITH REFLEX [id number] 00:00:00* Test Item Value Reference Range Interpretation Comme nts ANTI-NUCLEAR ANTIBODIES (aram t code = 3506) NEGATIVE YAZMIN PATTERN (REPORTED TITER) (test code = 63720) SEE BELOW HOMOGENEOUS (test code = 40330) NEGATIVE TITER SPECKLED (test code = 862192) NEGATIVE TITER DENSE FINE SPECKLED (test co de = 22443) NEGATIVE TITER CENTROMERE (test code = 765212) NEGATIVE TITER COARSE SPECKLED (test code = 202122) NEGATIVE TITER DISCRETE NUCLEAR DOTS (test code = 544643) NEGATIVE TITER NUCLEOLAR (test code = 289902) NEGATIVE TITER NUCLEAR MEMBRANE (test code = 200105) NEGATIVE TITER CYTO. RETICULAR (SANDY) (test code = 987644) NEGATIVE COMMENTS (test code = 494885) NONE METHOD (test code = 30007) (NOTE) Robert F AustinCOMPLEMENT, TOTAL [id number] 00:00:00* Test Item Value Reference Range Interpretation Comme nts COMPLEMENT, TOTAL HEM (test code = 3508) 61 U/mL Robert Ambrose AustindsDNA [id number] 00:00:00* Test Item Value Reference Range Interpretation Comme nts dsDNA ANTIBODY (test code = 4287) <1.0 IU/ML Robert Ambrose AustinCOMPLEMENT, TOTAL [id number] 00:00:00* Test Item Value Reference Range Interpretation Comme nts COMPLEMENT, TOTAL HEM (test code = 3508) 61 U/mL Robert Ambrose AustindsDNA [id number] 00:00:00* Test Item Value Reference Range Interpretation Comme nts dsDNA ANTIBODY (test code = 4287) <1.0 IU/ML Robert Ambrose AustinCOMPLEMENT, TOTAL [id number] 00:00:00* Test Item Value Reference Range Interpretation Comme nts COMPLEMENT, TOTAL HEM (test code = 3508) 61 U/mL Robert Ambrose AustindsDNA [id number] 00:00:00* Test Item Value Reference Range Interpretation Comme nts dsDNA ANTIBODY (test code = 4287) <1.0 IU/ML Robert Ambrose AustinC-REACTIVE [id number] 00:00:00* Test Item Value Reference Range Interpretation Comme nts C-REACTIVE PROTEIN (test cod e = 3513) 0.6 MG/DL Robert Ambrose AustinSEDIMENTATION [id number] 00:00:00* Test Item Value Reference Range Interpretation Comme nts SEDIMENTATION RATE (test cod e = 1017) 5 MM/HOUR Robert Ambrose AustinRHEUMATOID FACTOR, [id number] 00:00:00* Test Item Value Reference Range Interpretation Comme nts RHEUMATOID FACTOR, QUANT (te st code = 3502) <10 IU/ML Robert Ambrose AustinRETICULOCYTE [id number] 00:00:00* Test Item Value Reference Range Interpretation Comme nts RETICULOCYTE HEMOGLOBIN (aram t code = 90992) 26.3 PG Robert F AustinC-REACTIVE [id number] 00:00:00* Test Item Value Reference Range Interpretation Comme nts C-REACTIVE PROTEIN (test cod e = 3513) 0.6 MG/DL Robert Ambrose AustinSEDIMENTATION [id number] 00:00:00* Test Item Value Reference Range Interpretation Comme nts SEDIMENTATION RATE (test cod e = 1017) 5 MM/HOUR Robert F AustinRHEUMATOID FACTOR, [id number] 00:00:00* Test Item Value Reference Range Interpretation Comme nts RHEUMATOID FACTOR, QUANT (te st code = 3502) <10 IU/ML Robert F AustinRETICULOCYTE [id number] 00:00:00* Test Item Value Reference Range Interpretation Comme nts RETICULOCYTE HEMOGLOBIN (aram t code = 39909) 26.3 PG Robert Ambrose AustinC-REACTIVE [id number] 00:00:00* Test Item Value Reference Range Interpretation Comme nts C-REACTIVE PROTEIN (test cod e = 3513) 0.6 MG/DL Robert F AustinSEDIMENTATION [id number] 00:00:00* Test Item Value Reference Range Interpretation Comme nts SEDIMENTATION RATE (test cod e = 1017) 5 MM/HOUR Robert Ambrose AustinRHEUMATOID FACTOR, [id number] 00:00:00* Test Item Value Reference Range Interpretation Comme nts RHEUMATOID FACTOR, QUANT (te st code = 3502) <10 IU/ML Robert F AustinRETICULOCYTE [id number] 00:00:00* Test Item Value Reference Range Interpretation Comme nts RETICULOCYTE HEMOGLOBIN (aram t code = 54893) 26.3 PG Robert CaliCBC W/AUTO [id number] 00:00:00* Test Item Value Reference Range Interpretation [...] ABS NUCLEATED RBCS (test cod e = 97233) 0.00 K/UL [facility] [id number] 00:00:00* Test Item Value Reference Range Interpretation [...] ABS NUCLEATED RBCS (test cod e = 53502) 0.00 K/UL Robert CaliCBC W/AUTO [id number] 00:00:00* Test Item Value Reference Range Interpretation [...] ABS NUCLEATED RBCS (test cod e = 16693) 0.00 K/UL Robert CaliCBC W/AUTO [id number] 00:00:00* Test Item Value Reference Range Interpretation [...] ABS NUCLEATED RBCS (test cod e = 48970) 0.00 K/UL Robert Arnol [facility] W/AUTO [id number] 00:00:00* Test Item Value Reference Range Interpretation [...] ABS NUCLEATED RBCS (test cod e = 58493) 0.00 K/UL Robert Ambrose [id number] 05:10:38* Test Item Value Reference Range Interpretation Comme nts FERRITIN (test code = 2075) 69 NG/ML 13-200 CBC W/AUTO DIFF WITH [id number] 02:22:56* Test Item Value Reference Range Interpretation [...] 0.00-0.10 ABS NUCLEATED RBCS (test code = 16626) 0.00 K/UL 0.00-0.11 UNLESS OTHER SPARROW INDICATED, ALL TESTING PERFORMED AT [facility] [address] [place] [address] PIANO REGULATOR: CHARLA HERNANDEZ M.D. IA NUMBER [id number] [facility] [place]. [id number] 00:00:00* Test Item Value Reference Range Interpretation Comme nts FERRITIN (test code = 2075) 69 NG/ML Robert F ChrisCBC W/AUTO [id number] 00:00:00* Test Item Value Reference Range Interpretation [...] ABS NUCLEATED RBCS (test cod e = 40734) 0.00 K/UL Robert [id number] 00:00:00* Test Item Value Reference Range Interpretation Comme nts FERRITIN (test code = 2075) 69 NG/ML Robert CaliCBC W/AUTO [id number] 00:00:00* Test Item Value Reference Range Interpretation [...] ABS NUCLEATED RBCS (test cod e = 29178) 0.00 K/UL Robert Ambrose [id number] 00:00:00* Test Item Value Reference Range Interpretation Comme nts FERRITIN (test code = 2075) 69 NG/ML Robert Ambrose AustinCBC W/AUTO [id number] 00:00:00* Test Item Value Reference Range Interpretation [...] ABS NUCLEATED RBCS (test cod e = 29652) 0.00 K/UL Robert [id number] 00:00:00* Test Item Value Reference Range Interpretation Comme nts FERRITIN (test code = 5) 69 NG/ML Robert Ambrose AustinCBC W/AUTO [id number] 00:00:00* Test Item Value Reference Range Interpretation [...] ABS NUCLEATED RBCS (test cod e = 28470) 0.00 K/UL Roberteliz [id number] 00:00:00* Test Item Value Reference Range Interpretation Comme nts FERRITIN (test code = 5) 69 NG/ML Robert Ambrose ChrisCBC W/AUTO [id number] 00:00:00* Test Item Value Reference Range Interpretation [...] ABS NUCLEATED RBCS (test cod e = 81670) 0.00 K/UL Robert Bailon (ANTI-NUCLEAR AB) WITH REFLEX [id number] 06:46:04* Test Item Value Reference Range Interpretation Comme nts ANTI-NUCLEAR ANTIBODIES (test code = 3506) NEGATIVE NEGATIVE Methodology is I ndirect Immunofluorescent Assay (IFA) with a titering system using Osm6922 cells (Hep2 cells transfected with SS-A/Ro). YAZMIN PATTERN (REPORTED TITER) (test code = 58104) SEE BELOW HOMOGENEOUS (test code = 03721) NEGATIVE TITER NEGATIVE SPECKLED (test code = 170993) NEGATIVE TITER NEGATIVE DENSE FINE SPECKLED (test code = 52950) NEGATIVE TITER NEGATIVE CENTROMERE (test code = 725851) NEGATIVE TITER NEGATIVE COARSE SPECKLED (test code = 750822) NEGATIVE TITER NEGATIVE DISCRETE NUCLEAR DOTS (test code = 172150) NEGATIVE TITER NEGATIVE NUCLEOLAR (test code = 819108) NEGATIVE TITER NEGATIVE NUCLEAR MEMBRANE (test code = 602995) NEGATIVE TITER NEGATIVE CYTO. RETICULAR (SANDY) (test code = 635364) NEGATIVE NEGATIVE COMMENTS (test code = 643780) NONE METHOD (test code = 28661) (NOTE) TESTING PERFORME D BY [email or web address] IFA PLATFORM.THE METHOD INCLUDES A SCREEN THRESHOLD OF 1:80, DIGITIZED AND COMPUTER ALGORITHM-ASSISTED INTERPRETATION OF TITERS AND DIGITAL PATTERNS, AND HEp-2 CELL LINE SUBSTRATE. ADDITIONAL UNUSUAL PATTERNS WILL BE GIVEN COMMENTS.FOR MORE INFORMATION, SEE [email or web address] UNLESS OTHERWISE INDICATED, ALL TESTING PERFORMED AT [facility] [address] [facility] [place] [address] PIANO REGULATOR: CHARLA HERNANDEZ M.D. CLIA NUMBER [id number] [place]. [id number] NOTE:2023-12-07 06:05:36* Test Item Value Reference Range Interpretation Comme nts NOTE: (test code = 998) (NOTE) IN ACCORDANCE [facility] FEDERAL GUIDELINES REQUIRING ALL VERBAL REQUESTS FOR LABORATORY TESTS TO BE ACCOMPANIED BY WRITTEN AUTHORIZATION WITHIN 30 DAYS OF THIS REQUEST, PLEASE SIGN BELOW AND RETURN A COPY OF THIS REPORT BY FAX TO THE LABORATORY SCANNING DEPARTMENT AT [phone]. PHYSICIAN'S SIGNATURE DATE NOTE: [ADDED]2023-12-07 00:00:00* Test Item Value Reference Range Interpretation Comme nts NOTE: (test code = 998) (NOTE) Robert F Adamaris (ANTI-NUCLEAR AB) WITH REFLEX TITER [ADDED]2023-12-07 00:00:00* Test Item Value Reference Range Interpretation Comme nts ANTI-NUCLEAR ANTIBODIES (aram t code = 3506) NEGATIVE YAZMIN PATTERN (REPORTED TITER) (test code = 15541) SEE BELOW HOMOGENEOUS (test code = 97768) NEGATIVE TITER SPECKLED (test code = 059936) NEGATIVE TITER DENSE FINE SPECKLED (test co de = 61473) NEGATIVE TITER CENTROMERE (test code = 377164) NEGATIVE TITER COARSE SPECKLED (test code = 637142) NEGATIVE TITER DISCRETE NUCLEAR DOTS (test code = 939188) NEGATIVE TITER NUCLEOLAR (test code = 276519) NEGATIVE TITER NUCLEAR MEMBRANE (test code = 063672) NEGATIVE TITER CYTO. RETICULAR (SANDY) (test code = 625810) NEGATIVE COMMENTS (test code = 708274) NONE METHOD (test code = 25820) (NOTE) Robert CaliNOTE: [ADDED]2023-12-07 00:00:00* Test Item Value Reference Range Interpretation Comme nts NOTE: (test code = 998) (NOTE) Robert Arnol Adamaris (ANTI-NUCLEAR AB) WITH REFLEX TITER [ADDED]2023-12-07 00:00:00* Test Item Value Reference Range Interpretation Comme nts ANTI-NUCLEAR ANTIBODIES (aram t code = 3506) NEGATIVE YAZMIN PATTERN (REPORTED TITER) (test code = 30037) SEE BELOW HOMOGENEOUS (test code = 68961) NEGATIVE TITER SPECKLED (test code = 202770) NEGATIVE TITER DENSE FINE SPECKLED (test co de = 04156) NEGATIVE TITER CENTROMERE (test code = 670248) NEGATIVE TITER COARSE SPECKLED (test code = 585181) NEGATIVE TITER DISCRETE NUCLEAR DOTS (test code = 109900) NEGATIVE TITER NUCLEOLAR (test code = 388064) NEGATIVE TITER NUCLEAR MEMBRANE (test code = 710068) NEGATIVE TITER CYTO. RETICULAR (SANDY) (test code = 928334) NEGATIVE COMMENTS (test code = 422403) NONE METHOD (test code = 44549) (NOTE) Robert Ambrose ChrisNOTE: [ADDED]2023-12-07 00:00:00* Test Item Value Reference Range Interpretation Comme nts NOTE: (test code = 998) (NOTE) Robert Bailon (ANTI-NUCLEAR AB) WITH REFLEX TITER [ADDED]2023-12-07 00:00:00* Test Item Value Reference Range Interpretation Comme nts ANTI-NUCLEAR ANTIBODIES (aram t code = 3506) NEGATIVE YAZMIN PATTERN (REPORTED TITER) (test code = 38500) SEE BELOW HOMOGENEOUS (test code = 89871) NEGATIVE TITER SPECKLED (test code = 055762) NEGATIVE TITER DENSE FINE SPECKLED (test co de = 80918) NEGATIVE TITER CENTROMERE (test code = 185677) NEGATIVE TITER COARSE SPECKLED (test code = 306095) NEGATIVE TITER DISCRETE NUCLEAR DOTS (test code = 561937) NEGATIVE TITER NUCLEOLAR (test code = 146958) NEGATIVE TITER NUCLEAR MEMBRANE (test code = 227140) NEGATIVE TITER CYTO. RETICULAR (SANDY) (test code = 769636) NEGATIVE COMMENTS (test code = 358969) NONE METHOD (test code = 20026) (NOTE) Robert Ambrose ChrisNOTE: [ADDED]2023-12-07 00:00:00* Test Item Value Reference Range Interpretation Comme nts NOTE: (test code = 998) (NOTE) Robert Ambrose Adamaris (ANTI-NUCLEAR AB) WITH REFLEX TITER [ADDED]2023-12-07 00:00:00* Test Item Value Reference Range Interpretation Comme nts ANTI-NUCLEAR ANTIBODIES (aram t code = 3506) NEGATIVE YAZMIN PATTERN (REPORTED TITER) (test code = 91098) SEE BELOW HOMOGENEOUS (test code = 16301) NEGATIVE TITER SPECKLED (test code = 733958) NEGATIVE TITER DENSE FINE SPECKLED (test co de = 97485) NEGATIVE TITER CENTROMERE (test code = 700162) NEGATIVE TITER COARSE SPECKLED (test code = 224929) NEGATIVE TITER DISCRETE NUCLEAR DOTS (test code = 199305) NEGATIVE TITER NUCLEOLAR (test code = 365551) NEGATIVE TITER NUCLEAR MEMBRANE (test code = 155209) NEGATIVE TITER CYTO. RETICULAR (SANDY) (test code = 886391) NEGATIVE COMMENTS (test code = 985959) NONE METHOD (test code = 17066) (NOTE) Robert Ambrose ChrisNOTE: [ADDED]2023-12-07 00:00:00* Test Item Value Reference Range Interpretation Comme nts NOTE: (test code = 998) (NOTE) Robert Bailon (ANTI-NUCLEAR AB) WITH REFLEX TITER [ADDED]2023-12-07 00:00:00* Test Item Value Reference Range Interpretation Comme nts ANTI-NUCLEAR ANTIBODIES (aram t code = 3506) NEGATIVE YAZMIN PATTERN (REPORTED TITER) (test code = 85842) SEE BELOW HOMOGENEOUS (test code = 85545) NEGATIVE TITER SPECKLED (test code = 748831) NEGATIVE TITER DENSE FINE SPECKLED (test co de = 78364) NEGATIVE TITER CENTROMERE (test code = 999126) NEGATIVE TITER COARSE SPECKLED (test code = 096371) NEGATIVE TITER DISCRETE NUCLEAR DOTS (test code = 184173) NEGATIVE TITER NUCLEOLAR (test code = 771081) NEGATIVE TITER NUCLEAR MEMBRANE (test code = 859666) NEGATIVE TITER CYTO. RETICULAR (SANDY) (test code = 703869) NEGATIVE COMMENTS (test code = 024918) NONE METHOD (test code = 80385) (NOTE) Robert Ambrose ChrisNOTE: [ADDED]2023-12-07 00:00:00* Test Item Value Reference Range Interpretation Comme nts NOTE: (test code = 998) (NOTE) Robert Bailon (ANTI-NUCLEAR AB) WITH REFLEX TITER [ADDED]2023-12-07 00:00:00* Test Item Value Reference Range Interpretation Comme nts ANTI-NUCLEAR ANTIBODIES (aram t code = 3506) NEGATIVE YAZMIN PATTERN (REPORTED TITER) (test code = 68414) SEE BELOW HOMOGENEOUS (test code = 16886) NEGATIVE TITER SPECKLED (test code = 237106) NEGATIVE TITER DENSE FINE SPECKLED (test co de = 87255) NEGATIVE TITER CENTROMERE (test code = 470303) NEGATIVE TITER COARSE SPECKLED (test code = 982607) NEGATIVE TITER DISCRETE NUCLEAR DOTS (test code = 674321) NEGATIVE TITER NUCLEOLAR (test code = 242543) NEGATIVE TITER NUCLEAR MEMBRANE (test code = 713796) NEGATIVE TITER CYTO. RETICULAR (SANDY) (test code = 733910) NEGATIVE COMMENTS (test code = 964226) NONE METHOD (test code = 81962) (NOTE) Robert Ambrose AustinPROTEIN ELECTROPHORESIS, [id number] 14:58:50* Test Item Value Reference Range Interpretation [...] HUSSEIN M.D. VITAMIN B 12 AND FOLIC [id number] 05:31:25* Test Item Value Reference Range Interpretation [...] . . . UG/L >=6.0 COMPREHENSIVE METABOLIC [id number] 04:03:47* Test Item Value Reference Range Interpretation Comme nts GLUCOSE (test code = 7) 95 MG/DL 70-99 BUN (test code = 2207) 13 MG/DL 6-20 CREATININE (test code = 2214) 0.65 MG/DL 0.60-1.30 eGFR (2020 CKD-EPI) (test code = 66377) 110 ML/MIN/1.73 >60 CALC BUN/CREAT (test code [...] 6.7 G/DL 6.1-8.3 ALBUMIN (test code = 1) 4.5 G/DL 3.5-5.2 CALC GLOBULIN (test code [...] PERFORMED AT [facility] [address] [place] [address] PIANO REGULATOR: CHARLA HERNANDEZ M.D. CLIA NUMBER [id number] [facility] [place]. [id number] CBC W/AUTO DIFF WITH [id number] 03:00:25* Test Item Value Reference Range Interpretation [...] = 1065) 0.0 /100 WBC'S See_Comment [Automated Sympoza ge] The system which generated this result [...] 0.00-0.10 ABS NUCLEATED RBCS (test code = 74201) 0.00 K/UL 0.00-0.11 VITAMIN B 12 AND FOLIC [id number] 00:00:00* Test Item Value Reference Range Interpretation Comme nts VITAMIN B-12 (test code = 2840) 380 PG/ML FOLIC ACID (test code = 2695) 7.0 UG/L Robert Arnol ChrisPROTEIN ELECTROPHORESIS, [id number] 00:00:00* Test Item Value Reference Range Interpretation [...] code = 2568) (NOTE) Robert CaliCBC W/AUTO [id number] 00:00:00* Test Item Value Reference Range Interpretation [...] ABS NUCLEATED RBCS (test cod e = 43700) 0.00 K/UL Robert CaliCOMPREHENSIVE METABOLIC [id number] 00:00:00* Test Item Value Reference Range Interpretation Comme nts GLUCOSE (test code = 2217) 95 MG/DL BUN (test code = 2208) 13 MG/DL CREATININE (test code = 2214) 0.65 MG/DL eGFR (2020 CKD-EPI) (test code = 44245) 110 ML/MIN/1.73 CALC BUN/CREAT (test code = [...] U/L Robert CaliVITAMIN B 12 AND FOLIC [id number] 00:00:00* Test Item Value Reference Range Interpretation Comme nts VITAMIN B-12 (test code = 2840) 380 PG/ML FOLIC ACID (test code = 2695) 7.0 UG/L Robert CaliPROTEIN ELECTROPHORESIS, [id number] 00:00:00* Test Item Value Reference Range Interpretation [...] code = 2568) (NOTE) Robert CaliCBC W/AUTO [id number] 00:00:00* Test Item Value Reference Range Interpretation [...] ABS NUCLEATED RBCS (test cod e = 11410) 0.00 K/UL Robert Arnol ChrisCOMPREHENSIVE METABOLIC [id number] 00:00:00* Test Item Value Reference Range Interpretation Comme nts GLUCOSE (test code = 2217) 95 MG/DL BUN (test code = 2208) 13 MG/DL CREATININE (test code = 2214) 0.65 MG/DL eGFR (2020 CKD-EPI) (test code = 10904) 110 ML/MIN/1.73 CALC BUN/CREAT (test code = [...] code = 2219) 16 U/L Robert Arnol ChrisVITAMIN B 12 AND FOLIC [id number] 00:00:00* Test Item Value Reference Range Interpretation Comme nts VITAMIN B-12 (test code = 2840) 380 PG/ML FOLIC ACID (test code = 2695) 7.0 UG/L Robert Arnol ChrisPROTEIN ELECTROPHORESIS, [id number] 00:00:00* Test Item Value Reference Range Interpretation [...] INTERPRETATION, SPEP: (test code = 2568) (NOTE) [facility] [id number] 00:00:00* Test Item Value Reference Range Interpretation [...] ABS NUCLEATED RBCS (test cod e = 20807) 0.00 K/UL Robert Arnol ChrisCOMPREHENSIVE METABOLIC [id number] 00:00:00* Test Item Value Reference Range Interpretation Comme nts GLUCOSE (test code = 2217) 95 MG/DL BUN (test code = 2208) 13 MG/DL CREATININE (test code = 2214) 0.65 MG/DL eGFR (2020 CKD-EPI) (test code = 45205) 110 ML/MIN/1.73 CALC BUN/CREAT (test code = [...] code = 2219) 16 U/L Robert Arnol ChrisVITAMIN B 12 AND FOLIC [id number] 00:00:00* Test Item Value Reference Range Interpretation Comme nts VITAMIN B-12 (test code = 2840) 380 PG/ML FOLIC ACID (test code = 2695) 7.0 UG/L Robert CaliPROTEIN ELECTROPHORESIS, [id number] 00:00:00* Test Item Value Reference Range Interpretation [...] (test code = 2568) (NOTE) Robert Ambrose ChrisCBC W/AUTO [id number] 00:00:00* Test Item Value Reference Range Interpretation [...] ABS NUCLEATED RBCS (test cod e = 32261) 0.00 K/UL Robert Ambrose ChrisCOMPREHENSIVE METABOLIC [id number] 00:00:00* Test Item Value Reference Range Interpretation Comme nts GLUCOSE (test code = 2217) 95 MG/DL BUN (test code = 2208) 13 MG/DL CREATININE (test code = 2214) 0.65 MG/DL eGFR (2020 CKD-EPI) (test code = 22150) 110 ML/MIN/1.73 CALC BUN/CREAT (test code = 2235) 20 RATIO SODIUM (test code = 2231) 139 MEQ/L POTASSIUM (test code = 2228) 4.6 MEQ/L CHLORIDE (test code = 2215) 103 MEQ/L CARBON DIOXIDE (test code = 2206) 25 MEQ/L CALCIUM (test code = 2209) 10.1 MG/DL PROTEIN, TOTAL (test code = 222) 6.7 G/DL ALBUMIN (test code = 2201) 4.5 G/DL CALC GLOBULIN (test code = 2240) 2.2 G/DL CALC A/G RATIO (test code = 2234) 2.0 RATIO BILIRUBIN, TOTAL (test code = 2206) <0.2 MG/DL ALKALINE PHOSPHATASE (test code = 2203) 144 U/L AST (test code = 2218) 16 U/L ALT (test code = 2219) 16 U/L Robert CaliVITAMIN B 12 AND FOLIC [id number] 00:00:00* Test Item Value Reference Range Interpretation Comme nts VITAMIN B-12 (test code = 2840) 380 PG/ML FOLIC ACID (test code = 2695) 7.0 UG/L Robert CaliPROTEIN ELECTROPHORESIS, [id number] 00:00:00* Test Item Value Reference Range Interpretation [...] code = 2568) (NOTE) Robert CaliCBC W/AUTO [id number] 00:00:00* Test Item Value Reference Range Interpretation [...] ABS NUCLEATED RBCS (test cod e = 29928) 0.00 K/UL Robert CaliCOMPREHENSIVE METABOLIC [id number] 00:00:00* Test Item Value Reference Range Interpretation Comme nts GLUCOSE (test code = 2217) 95 MG/DL BUN (test code = 2208) 13 MG/DL CREATININE (test code = 2214) 0.65 MG/DL eGFR (2020 CKD-EPI) (test code = 77218) 110 ML/MIN/1.73 CALC BUN/CREAT (test code = [...] U/L Robert CaliVITAMIN B 12 AND FOLIC [id number] 00:00:00* Test Item Value Reference Range Interpretation Comme nts VITAMIN B-12 (test code = 2840) 380 PG/ML FOLIC ACID (test code = 2695) 7.0 UG/L Robert CaliPROTEIN ELECTROPHORESIS, [id number] 00:00:00* Test Item Value Reference Range Interpretation [...] code = 2568) (NOTE) Robert CaliCBC W/AUTO [id number] 00:00:00* Test Item Value Reference Range Interpretation [...] ABS NUCLEATED RBCS (test cod e = 59223) 0.00 K/UL Robert CaliCOMPREHENSIVE METABOLIC [id number] 00:00:00* Test Item Value Reference Range Interpretation Comme nts GLUCOSE (test code = 2217) 95 MG/DL BUN (test code = 2208) 13 MG/DL CREATININE (test code = 2214) 0.65 MG/DL eGFR (2020 CKD-EPI) (test code = 80873) 110 ML/MIN/1.73 CALC BUN/CREAT (test code = [...] = 2219) 16 U/L Robert Ambrose AustinHAPTOGLOBIN, [id number] 13:13:35* Test Item Value Reference Range Interpretation Comme nts HAPTOGLOBIN, QUANT (test cod e = 14494) 227 MG/DL 32-197 H [id number] 05:29:31* Test Item Value Reference Range Interpretation Comme nts TRANSFERRIN (test code = 4936) 380 MG/DL 200-360 H [id number] 05:29:31* Test Item Value Reference Range Interpretation Comme nts LDH (test code = 2224) 186 U/L 135-214 [id number] 04:14:38* Test Item Value Reference Range Interpretation Comme nts FERRITIN (test code = 2075) 6 NG/ML 13-200 L VITAMIN D, 25 [id number] 04:14:10* Test Item Value Reference Range Interpretation [...] IRON BINDING CAPACITY AND IRON AND % [id number] 04:13:51* Test Item Value Reference Range Interpretation Comme nts IRON, SERUM (test code = 2222) 25 UG/DL 37-145 L UNSATURATED IBC (test code = 25824) 425 UG/DL 112-347 H CALC TOTAL IBC (test code = 2076) 450 UG/DL 250-450 CALC % IRON SAT (test code = 2079) 6 % 20-50 L URIC [id number] 04:13:51* Test Item Value Reference Range Interpretation Comme nts URIC ACID (test code = 2233) 5.8 MG/DL 2.7-6.1 UNLESS OTHERWISE INDICATED, ALL TESTING PERFORMED AT [facility] [address] [place] [address] PIANO REGULATOR: CHARLA HERNANDEZ M.D. IA NUMBER [id number] [facility] [place]. [id number] LIPID [id number] 04:13:51* Test Item Value Reference Range Interpretation [...] SPECIMENS. FOR MOREINFORMATION, SEE CLIENT ANNOUNCEMENT AT [email or web address] [email or web address] RATIO LDL/HDL (test code = 2238) 2.58 RATIO <3.22 COMPREHENSIVE METABOLIC [id number] 04:13:51* Test Item Value Reference Range Interpretation Comme nts GLUCOSE (test code = 2217) 97 MG/DL 70-99 BUN (test code = 2208) 9 MG/DL 6-20 CREATININE (test code = 2214) 0.86 MG/DL 0.60-1.30 eGFR (2020 CKD-EPI) (test co de = 21655) 84 ML/MIN/1.73 >60 CALC BUN/CREAT (test code [...] code = 2219) 22 U/L 5-40 HEMOGLOBIN [id number] 03:10:06* Test Item Value Reference Range Interpretation Comme nts HEMOGLOBIN A1c (test code = 96059) 5.6 % 4.2-5.6 CBC W/AUTO DIFF RFLX SMEAR [id number] 02:37:07* Test Item Value Reference Range Interpretation [...] MANUAL DIFFERENTIAL WILL BE PERFORMED IF INDICATED.SEE [email or web address] CONTACT YOUR LOCAL [facility] CUSTOMER SERVICEDEPARTMENT FOR FURTHER INFORMATION. LYMPHOCYTES (test [...] 0.00-0.10 ABS NUCLEATED RBCS (test code = 82984) 0.00 K/UL 0.00-0.11 RETICULOCYTE WITH [id number] 02:37:07* Test Item Value Reference Range Interpretation Comme nts RETICULOCYTE COUNT (test cod e = 1018) 2.55 % 0.80-2.40 H ABSOLUTE RETICULOCYTE (test code = 41649) 115.0 K/UL 32.0-105.0 H HEMOGLOBIN [id number] 00:00:00* Test Item Value Reference Range Interpretation Comme nts HEMOGLOBIN A1c (test code = 67049) 5.6 % Robert Ambrose AustinLIPID [id number] 00:00:00* Test Item Value Reference Range Interpretation Comme nts CHOLESTEROL (test code = 2210) 212 MG/DL TRIGLYCERIDES (test code = 2232) 116 MG/DL HDL CHOLESTEROL (test code = 2220) 53 MG/DL CALC LDL CHOL (test code = 2237) 137 MG/DL RISK RATIO LDL/HDL (test cod e = 2238) 2.58 RATIO Robert CaliCOMPREHENSIVE METABOLIC [id number] 00:00:00* Test Item Value Reference Range Interpretation Comme nts GLUCOSE (test code = 2217) 97 MG/DL BUN (test code = 2208) 9 MG/DL CREATININE (test code = 2214) 0.86 MG/DL eGFR (2020 CKD-EPI) (test co de = 82131) 84 ML/MIN/1.73 CALC BUN/CREAT (test code = [...] 2219) 22 U/L Robert CaliVITAMIN D, 25 [id number] 00:00:00* Test Item Value Reference Range Interpretation Comme nts VITAMIN D, 25 OH (test code = 4958) 18 NG/ML Robert CaliCBC W/AUTO DIFF RFLX SMEAR [id number] 00:00:00* Test Item Value Reference Range Interpretation [...] ABS NUCLEATED RBCS (test cod e = 68030) 0.00 K/UL Robert CaliRETICULOCYTE WITH [id number] 00:00:00* Test Item Value Reference Range Interpretation Comme nts RETICULOCYTE COUNT (test cod e = 1018) 2.55 % ABSOLUTE RETICULOCYTE (test code = 25224) 115.0 K/UL Robert CaliHAPTOGLOBIN, [id number] 00:00:00* Test Item Value Reference Range Interpretation Comme nts HAPTOGLOBIN, QUANT (test cod e = 27782) 227 MG/DL Robert [id number] 00:00:00* Test Item Value Reference Range Interpretation Comme nts LDH (test code = 2224) 186 U/L Robert CaliIRON BINDING CAPACITY AND IRON AND % [id number] 00:00:00* Test Item Value Reference Range Interpretation Comme nts IRON, SERUM (test code = 2222) 25 UG/DL UNSATURATED IBC (test code = 72021) 425 UG/DL CALC TOTAL IBC (test code = 2077) 450 UG/DL CALC % IRON SAT (test code = 2079) 6 % Robert [id number] 00:00:00* Test Item Value Reference Range Interpretation Comme nts FERRITIN (test code = 2075) 6 NG/ML Robert Ambrose [id number] 00:00:00* Test Item Value Reference Range Interpretation Comme nts TRANSFERRIN (test code = 4936) 380 MG/DL Robert Ambrose AustinURIC [id number] 00:00:00* Test Item Value Reference Range Interpretation Comme nts URIC ACID (test code = 2233) 5.8 MG/DL Robert Ambrose AustinHEMOGLOBIN [id number] 00:00:00* Test Item Value Reference Range Interpretation Comme nts HEMOGLOBIN A1c (test code = 06525) 5.6 % Robert CaliLIPID [id number] 00:00:00* Test Item Value Reference Range Interpretation Comme nts CHOLESTEROL (test code = 2210) 212 MG/DL TRIGLYCERIDES (test code = 2232) 116 MG/DL HDL CHOLESTEROL (test code = 2220) 53 MG/DL CALC LDL CHOL (test code = 2237) 137 MG/DL RISK RATIO LDL/HDL (test cod e = 2238) 2.58 RATIO Robert CaliCOMPREHENSIVE METABOLIC [id number] 00:00:00* Test Item Value Reference Range Interpretation Comme nts GLUCOSE (test code = 2217) 97 MG/DL BUN (test code = 2208) 9 MG/DL CREATININE (test code = 2214) 0.86 MG/DL eGFR (2020 CKD-EPI) (test co de = 14414) 84 ML/MIN/1.73 CALC BUN/CREAT (test code = [...] 2219) 22 U/L Robert CaliVITAMIN D, 25 [id number] 00:00:00* Test Item Value Reference Range Interpretation Comme nts VITAMIN D, 25 OH (test code = 4958) 18 NG/ML Robert CaliCBC W/AUTO DIFF RFLX SMEAR [id number] 00:00:00* Test Item Value Reference Range Interpretation [...] ABS NUCLEATED RBCS (test cod e = 32704) 0.00 K/UL Robert CaliRETICULOCYTE WITH [id number] 00:00:00* Test Item Value Reference Range Interpretation Comme nts RETICULOCYTE COUNT (test cod e = 1018) 2.55 % ABSOLUTE RETICULOCYTE (test code = 86275) 115.0 K/UL Robert CaliHAPTOGLOBIN, [id number] 00:00:00* Test Item Value Reference Range Interpretation Comme nts HAPTOGLOBIN, QUANT (test cod e = 29859) 227 MG/DL Robert Ambrose [id number] 00:00:00* Test Item Value Reference Range Interpretation Comme nts LDH (test code = 2224) 186 U/L Robert Ambrose AustinIRON BINDING CAPACITY AND IRON AND % [id number] 00:00:00* Test Item Value Reference Range Interpretation Comme nts IRON, SERUM (test code = 2222) 25 UG/DL UNSATURATED IBC (test code = ) 425 UG/DL CALC TOTAL IBC (test code = 2076) 450 UG/DL CALC % IRON SAT (test code = 2078) 6 % Robert [id number] 00:00:00* Test Item Value Reference Range Interpretation Comme nts FERRITIN (test code = 2074) 6 NG/ML Robert Ambrose [id number] 00:00:00* Test Item Value Reference Range Interpretation Comme nts TRANSFERRIN (test code = 4936) 380 MG/DL Robert CaliURIC [id number] 00:00:00* Test Item Value Reference Range Interpretation Comme nts URIC ACID (test code = 2232) 5.8 MG/DL Robert CaliHEMOGLOBIN [id number] 00:00:00* Test Item Value Reference Range Interpretation Comme rigoebrto HEMOGLOBIN A1c (test code = 37641) 5.6 % Robert CaliLIPID [id number] 00:00:00* Test Item Value Reference Range Interpretation Comme nts CHOLESTEROL (test code = 0) 212 MG/DL TRIGLYCERIDES (test code = 2) 116 MG/DL HDL CHOLESTEROL (test code = 0) 53 MG/DL CALC LDL CHOL (test code = 7) 137 MG/DL RISK RATIO LDL/HDL (test cod e = 2238) 2.58 RATIO Robert CaliCOMPREHENSIVE METABOLIC [id number] 00:00:00* Test Item Value Reference Range Interpretation Comme nts GLUCOSE (test code = 7) 97 MG/DL BUN (test code = 2207) 9 MG/DL CREATININE (test code = 2214) 0.86 MG/DL eGFR (2020 CKD-EPI) (test co de = 30473) 84 ML/MIN/1.73 CALC BUN/CREAT (test code = 2235) 10 RATIO SODIUM (test code = 2231) 140 MEQ/L POTASSIUM (test code = 2228) 4.4 MEQ/L CHLORIDE (test code = 2215) 104 MEQ/L CARBON DIOXIDE (test code = 2205) 25 MEQ/L CALCIUM (test code = 220) 9.3 MG/DL PROTEIN, TOTAL (test code = 222) 6.5 G/DL ALBUMIN (test code = 2201) 4.4 G/DL CALC GLOBULIN (test code = 2240) 2.1 G/DL CALC A/G RATIO (test code = 2234) 2.1 RATIO BILIRUBIN, TOTAL (test code = 2207) <0.2 MG/DL ALKALINE PHOSPHATASE (test code = 2204) 149 U/L AST (test code = 2218) 17 U/L ALT (test code = 2219) 22 U/L Robert CaliVITAMIN D, 25 [id number] 00:00:00* Test Item Value Reference Range Interpretation Comme nts VITAMIN D, 25 OH (test code = 4958) 18 NG/ML Robert CaliCBC W/AUTO DIFF RFLX SMEAR [id number] 00:00:00* Test Item Value Reference Range Interpretation [...] ABS NUCLEATED RBCS (test cod e = 89245) 0.00 K/UL Robert CaliRETICULOCYTE WITH [id number] 00:00:00* Test Item Value Reference Range Interpretation Comme nts RETICULOCYTE COUNT (test cod e = 1018) 2.55 % ABSOLUTE RETICULOCYTE (test code = 99145) 115.0 K/UL Robert CaliHAPTOGLOBIN, [id number] 00:00:00* Test Item Value Reference Range Interpretation Comme nts HAPTOGLOBIN, QUANT (test cod e = 77453) 227 MG/DL Robert [id number] 00:00:00* Test Item Value Reference Range Interpretation Comme nts LDH (test code = 222) 186 U/L Robert CaliIRON BINDING CAPACITY AND IRON AND % [id number] 00:00:00* Test Item Value Reference Range Interpretation Comme nts IRON, SERUM (test code = 2222) 25 UG/DL UNSATURATED IBC (test code = 68775) 425 UG/DL CALC TOTAL IBC (test code = 2077) 450 UG/DL CALC % IRON SAT (test code = 2079) 6 % Roberteliz [id number] 00:00:00* Test Item Value Reference Range Interpretation Comme nts FERRITIN (test code = 2075) 6 NG/ML Robert [id number] 00:00:00* Test Item Value Reference Range Interpretation Comme nts TRANSFERRIN (test code = 4936) 380 MG/DL Robert CaliURIC [id number] 00:00:00* Test Item Value Reference Range Interpretation Comme nts URIC ACID (test code = 2233) 5.8 MG/DL Robert CaliHEMOGLOBIN [id number] 00:00:00* Test Item Value Reference Range Interpretation Comme nts HEMOGLOBIN A1c (test code = 01577) 5.6 % Robert CaliLIPID [id number] 00:00:00* Test Item Value Reference Range Interpretation Comme nts CHOLESTEROL (test code = 2210) 212 MG/DL TRIGLYCERIDES (test code = 2232) 116 MG/DL HDL CHOLESTEROL (test code = 2220) 53 MG/DL CALC LDL CHOL (test code = 2237) 137 MG/DL RISK RATIO LDL/HDL (test cod e = 2238) 2.58 RATIO Robert CaliCOMPREHENSIVE METABOLIC [id number] 00:00:00* Test Item Value Reference Range Interpretation Comme nts GLUCOSE (test code = 2217) 97 MG/DL BUN (test code = 2208) 9 MG/DL CREATININE (test code = 2214) 0.86 MG/DL eGFR (2020 CKD-EPI) (test co de = 72702) 84 ML/MIN/1.73 CALC BUN/CREAT (test code = [...] 2219) 22 U/L Robert CaliVITAMIN D, 25 [id number] 00:00:00* Test Item Value Reference Range Interpretation Comme [facility] VITAMIN D, 25 OH (test code = 4958) 18 NG/ML Robert CaliCBC W/AUTO DIFF RFLX SMEAR [id number] 00:00:00* Test Item Value Reference Range Interpretation [...] ABS NUCLEATED RBCS (test cod e = 88882) 0.00 K/UL Robert Arnol ChrisRETICULOCYTE WITH [id number] 00:00:00* Test Item Value Reference Range Interpretation Comme nts RETICULOCYTE COUNT (test cod e = 1018) 2.55 % ABSOLUTE RETICULOCYTE (test code = 61444) 115.0 K/UL Robert Ambrose ChrisHAPTOGLOBIN, [id number] 00:00:00* Test Item Value Reference Range Interpretation Comme nts HAPTOGLOBIN, QUANT (test cod e = 81247) 227 MG/DL Robert Ambrose [id number] 00:00:00* Test Item Value Reference Range Interpretation Comme nts LDH (test code = 2224) 186 U/L Robert Arnol ChrisIRON BINDING CAPACITY AND IRON AND % [id number] 00:00:00* Test Item Value Reference Range Interpretation Comme nts IRON, SERUM (test code = 2222) 25 UG/DL UNSATURATED IBC (test code = 28034) 425 UG/DL CALC TOTAL IBC (test code = 7) 450 UG/DL CALC % IRON SAT (test code = 2078) 6 % Robert Arnol [id number] 00:00:00* Test Item Value Reference Range Interpretation Comme nts FERRITIN (test code = 2075) 6 NG/ML Robert Ambrose [id number] 00:00:00* Test Item Value Reference Range Interpretation Comme nts TRANSFERRIN (test code = 4936) 380 MG/DL Robert CaliURIC [id number] 00:00:00* Test Item Value Reference Range Interpretation Comme rigoberto URIC ACID (test code = 2233) 5.8 MG/DL Robert CaliHEMOGLOBIN [id number] 00:00:00* Test Item Value Reference Range Interpretation Comme rigoberto HEMOGLOBIN A1c (test code = 82090) 5.6 % Robert CaliLIPID [id number] 00:00:00* Test Item Value Reference Range Interpretation Comme nts CHOLESTEROL (test code = 2210) 212 MG/DL TRIGLYCERIDES (test code = 2232) 116 MG/DL HDL CHOLESTEROL (test code = 2220) 53 MG/DL CALC LDL CHOL (test code = 2237) 137 MG/DL RISK RATIO LDL/HDL (test cod e = 2238) 2.58 RATIO Robert CaliCOMPREHENSIVE METABOLIC [id number] 00:00:00* Test Item Value Reference Range Interpretation Comme nts GLUCOSE (test code = 2217) 97 MG/DL BUN (test code = 2208) 9 MG/DL CREATININE (test code = 2214) 0.86 MG/DL eGFR (2020 CKD-EPI) (test co de = 38316) 84 ML/MIN/1.73 CALC BUN/CREAT (test code = [...] (test code = 2219) 22 U/L Robert CailVITAMIN D, 25 [id number] 00:00:00* Test Item Value Reference Range Interpretation Comme nts VITAMIN D, 25 OH (test code = 4958) 18 NG/ML Robert CaliCBC W/AUTO DIFF RFLX SMEAR [id number] 00:00:00* Test Item Value Reference Range Interpretation [...] ABS NUCLEATED RBCS (test cod e = 51564) 0.00 K/UL Robert CaliRETICULOCYTE WITH [id number] 00:00:00* Test Item Value Reference Range Interpretation Comme nts RETICULOCYTE COUNT (test cod e = 1018) 2.55 % ABSOLUTE RETICULOCYTE (test code = 09652) 115.0 K/UL Robert CaliHAPTOGLOBIN, [id number] 00:00:00* Test Item Value Reference Range Interpretation Comme nts HAPTOGLOBIN, QUANT (test cod e = 66276) 227 MG/DL Robert [id number] 00:00:00* Test Item Value Reference Range Interpretation Comme nts LDH (test code = 2224) 186 U/L Robert CaliIRON BINDING CAPACITY AND IRON AND % [id number] 00:00:00* Test Item Value Reference Range Interpretation Comme nts IRON, SERUM (test code = 222) 25 UG/DL UNSATURATED IBC (test code = 20753) 425 UG/DL CALC TOTAL IBC (test code = 2076) 450 UG/DL CALC % IRON SAT (test code = 2078) 6 % Robert [id number] 00:00:00* Test Item Value Reference Range Interpretation Comme nts FERRITIN (test code = 207) 6 NG/ML Robert Ambrose [id number] 00:00:00* Test Item Value Reference Range Interpretation Comme nts TRANSFERRIN (test code = 4936) 380 MG/DL Robert Ambrose AustinURIC [id number] 00:00:00* Test Item Value Reference Range Interpretation Comme nts URIC ACID (test code = 223) 5.8 MG/DL Robert CaliHEMOGLOBIN [id number] 00:00:00* Test Item Value Reference Range Interpretation Comme nts HEMOGLOBIN A1c (test code = 70154) 5.6 % Robert CaliLIPID [id number] 00:00:00* Test Item Value Reference Range Interpretation Comme nts CHOLESTEROL (test code = 2210) 212 MG/DL TRIGLYCERIDES (test code = 2232) 116 MG/DL HDL CHOLESTEROL (test code = 2220) 53 MG/DL CALC LDL CHOL (test code = 2237) 137 MG/DL RISK RATIO LDL/HDL (test cod e = 2238) 2.58 RATIO Robert CaliCOMPREHENSIVE METABOLIC [id number] 00:00:00* Test Item Value Reference Range Interpretation Comme nts GLUCOSE (test code = 2217) 97 MG/DL BUN (test code = 2208) 9 MG/DL CREATININE (test code = 2214) 0.86 MG/DL eGFR (2020 CKD-EPI) (test co de = 45630) 84 ML/MIN/1.73 CALC BUN/CREAT (test code = [...] 2219) 22 U/L Robert CaliVITAMIN D, 25 [id number] 00:00:00* Test Item Value Reference Range Interpretation Comme [facility] VITAMIN D, 25 OH (test code = 4958) 18 NG/ML Robert CaliCBC W/AUTO DIFF RFLX SMEAR [id number] 00:00:00* Test Item Value Reference Range Interpretation [...] ABS NUCLEATED RBCS (test cod e = 71070) 0.00 K/UL Robert CaliRETICULOCYTE WITH [id number] 00:00:00* Test Item Value Reference Range Interpretation Comme nts RETICULOCYTE COUNT (test cod e = 1018) 2.55 % ABSOLUTE RETICULOCYTE (test code = 37371) 115.0 K/UL Robert CaliHAPTOGLOBIN, [id number] 00:00:00* Test Item Value Reference Range Interpretation Comme nts HAPTOGLOBIN, QUANT (test cod e = 15173) 227 MG/DL Robert [id number] 00:00:00* Test Item Value Reference Range Interpretation Comme nts LDH (test code = 2224) 186 U/L Robert CaliIRON BINDING CAPACITY AND IRON AND % [id number] 00:00:00* Test Item Value Reference Range Interpretation Comme nts IRON, SERUM (test code = 2222) 25 UG/DL UNSATURATED IBC (test code = 66934) 425 UG/DL CALC TOTAL IBC (test code = 2077) 450 UG/DL CALC % IRON SAT (test code = 2079) 6 % Robert CaliRztrikSSRDTJUO2410-78-03 00:00:00* Test Item Value Reference Range Interpretation Comme nts FERRITIN (test code = 2075) 6 NG/ML Robert CaliVqqycvZDMEWFRMQBP5597-14-19 00:00:00* Test Item Value Reference Range Interpretation Comme nts TRANSFERRIN (test code = 4936) 380 MG/DL Robert CaliURIC [id number] 00:00:00* Test Item Value Reference Range Interpretation Comme nts URIC ACID (test code = 2233) 5.8 MG/DL Robert CaliCT ACUTE STROKE ANGIOGRAM [id number] 13:46:46CT STROKE ANGIOGRAM HEAD, CT STROKE ANGIOGRAM [...] caliber. The superior cerebellar arteriesare patent. The DIRECTOR SOFTWARE QUALITY ASSURANCE are patent bilaterally. No sizable posteriorcommunicating arteries are seen. The petrous, cavernous and supraclinoid internal carotid segmentsarewidely patent. The GIBSON and MCA are patent bilaterally. An anteriorcommunicating artery is seen. The dural venous sinuses are opacified and unremarkable.[facility] [id number] 13:46:46CT STROKE ANGIOGRAM HEAD, CT STROKE ANGIOGRAM [...] caliber. The superior cerebellar arteriesare patent. The DIRECTOR SOFTWARE QUALITY ASSURANCE are patent bilaterally. No sizable posteriorcommunicating arteries are seen. The petrous, cavernous and supraclinoid internal carotid segmentsarewidely patent. The GIBSON and MCA are patent bilaterally. An anteriorcommunicating artery is seen. The dural venous sinuses are opacified and unremarkable.[facility] [id number] 13:46:46CT STROKE ANGIOGRAM HEAD, CT STROKE ANGIOGRAM [...] caliber. The superior cerebellar arteriesare patent. The DIRECTOR SOFTWARE QUALITY ASSURANCE are patent bilaterally. No sizable posteriorcommunicating arteries are seen. The petrous, cavernous and supraclinoid internal carotid segmentsarewidely patent. The GIBSON and MCA are patent bilaterally. An anteriorcommunicating artery is seen. The dural venous sinuses are opacified and unremarkable.[facility] [id number] 13:46:46CT STROKE ANGIOGRAM HEAD, CT STROKE ANGIOGRAM [...] caliber. The superior cerebellar arteriesare patent. The DIRECTOR SOFTWARE QUALITY ASSURANCE are patent bilaterally. No sizable posteriorcommunicating arteries are seen. The petrous, cavernous and supraclinoid internal carotid segmentsarewidely patent. The GIBSON and MCA are patent bilaterally. An anteriorcommunicating artery is seen. The dural venous sinuses are opacified and unremarkable.[facility] WO [id number] 13:44:48EXAM: CT STROKE HEAD WO CONTRAST HISTORY: [...] unremarkable.[facility] ACUTE STROKE HEAD WO [id number] 13:44:48EXAM: CT STROKE HEAD WO CONTRAST HISTORY: [...] clear. Thecalvarium and central skull base are unremarkable.[facility]2024-04-26 04:29:26* Test Item Value Reference Range Interpretation Comme nts Laurium (test code = 7378944033) 0.6 mmol/L 0.6-1.2 ZAINAB (test code = ZAINAB) Toxic Range: ? Greater than 1.2 mmol/L Lab Interpretation (test code = 87573-5) Normal [facility]2024-04-26 04:29:26* Test Item Value Reference Range Interpretation Comme nts Laurium (test code = 5764095631) 0.6 mmol/L 0.6-1.2 ZAINAB (test code = ZAINAB) Toxic Range: ? Greater than 1.2 mmol/L Lab Interpretation (test code = 01784-4) Normal [facility]2024-04-26 04:29:26* Test Item Value Reference Range Interpretation Comme nts Laurium (test code = 8662060338) 0.6 mmol/L 0.6-1.2 ZAINAB (test code = ZAINAB) Toxic Range: ? Greater than 1.2 mmol/L Lab Interpretation (test code = 95340-9) [address]04-26 04:29:26* Test Item Value Reference Range Interpretation Comme nts Laurium (test code = 7056916866) 0.6 mmol/L 0.6-1.2 ZAINAB (test code = ZAINAB) Toxic Range: ? Greater than 1.2 mmol/L Lab Interpretation (test code = 20332-7) [address]04-26 04:29:26* Test Item Value Reference Range Interpretation Comme nts Laurium (test code = 4525482527) 0.6 mmol/L 0.6-1.2 ZAINAB (test code = ZAINAB) Toxic Range: ? Greater than 1.2 mmol/L Lab Interpretation (test code = 24701-6) [facility]2024-04-26 04:29:26* Test Item Value Reference Range Interpretation Comme nts Laurium (test code = 4074424377) 0.6 mmol/L 0.6-1.2 ZAINAB (test code = ZAINAB) Toxic Range: ? Greater than 1.2 mmol/L Lab Interpretation (test code = 13398-8) [facility]2024-04-26 04:29:26* Test Item Value Reference Range Interpretation Comme nts Laurium (test code = 9408353276) 0.6 mmol/L 0.6-1.2 ZAINAB (test code = ZAINAB) Toxic Range: ? Greater than 1.2 mmol/L Lab Interpretation (test code = 45887-6) [address]04-26 04:29:26* Test Item Value Reference Range Interpretation Comme nts Laurium (test code = 3510695880) 0.6 mmol/L 0.6-1.2 ZAINAB (test code = ZAINAB) Toxic Range: ? Greater than 1.2 mmol/L Lab Interpretation (test code = 37817-6) [facility]2024-04-26 04:29:26* Test Item Value Reference Range Interpretation Comme nts Laurium (test code = 2182276579) 0.6 mmol/L 0.6-1.2 ZAINAB (test code = ZAINAB) Toxic Range: ? Greater than 1.2 mmol/L Lab Interpretation (test code = 77379-4) Normal [facility]2024-04-26 03:33:22 ALCOHOL<10mg/dL06/07/2023 10:33 PM CDTUTMB LABORATORY SERVICESToxic Greater than or equal to 80 mg/dL. NOTE: Whole blood values are approximately 10% to 15% lower than serum and plasma.[facility]2024-04-26 03:33:22ALCOHOL<10mg/dL06/07/2023 10:33 PM CDTUTMB LABORATORY SERVICESToxic Greater than or equal to 80 mg/dL. NOTE: Whole blood values are approximately 10% to 15% lower than serum and plasma.[facility] 2023-06-08 03:33:22ALCOHOL<10mg/dL06/07/2023 10:33 PM CDTUTMB LABORATORY SERVICESToxic Greater than or equal to 80 mg/dL. NOTE: Whole blood values are approximately 10% to 15% lower than serum and plasma.[facility]2024-04-26 03:33:22ALCOHOL<10mg/dL06/07/2023 10:33 PM CDTUTMB LABORATORY SERVICESToxic Greater than or equal to 80 mg/dL. NOTE: Whole blood values are approximately 10% to 15% lower than serum and plasma.[facility]2024-04-26 03:33:22ALCOHOL<10mg/dL06/07/2023 10:33 PM CDTUTMB LABORATORY SERVICESToxic Greater than or equal to 80 mg/dL. NOTE: Whole blood values are approximately 10% to 15% lower than serum and plasma.[facility]2024-04-26 03:33:22ALCOHOL<10mg/dL06/07/2023 10:33 PM CDTUTMB LABORATORY SERVICESToxic Greater than or equal to 80 mg/dL. NOTE: Whole blood values are approximately 10% to 15% lower than serum and plasma. [facility]2024-04-26 03:33:22 ALCOHOL<10mg/dL06/07/2023 10:33 PM CDTUTMB LABORATORY SERVICESToxic Greater than or equal to 80 mg/dL. NOTE: Whole blood values are approximately 10% to 15% lower than serum and plasma.[facility]2024-04-26 03:33:22ALCOHOL<10mg/dL06/07/2023 10:33 PM CDTUTMB LABORATORY SERVICESToxic Greater than or equal to 80 mg/dL. NOTE: Whole blood values are approximately 10% to 15% lower than serum and plasma.[facility] 2023-06-08 03:33:22ALCOHOL<10mg/dL06/07/2023 10:33 PM CDTUTMB LABORATORY SERVICESToxic Greater than or equal to 80 mg/dL. NOTE: Whole blood values are approximately 10% to 15% lower than serum and plasma.[facility] I - Code [id number] 03:15:34* Test Item Value Reference Range Interpretation Comme nts TROPONIN I (test code = 5147299520) 0.003 ng/mL <=0.034 ZAINAB (test code = [...] of biotin. Lab Interpretation (test code = 13116-5) Normal [facility] I - Code [id number] 03:15:34* Test Item Value Reference Range Interpretation Comme nts TROPONIN I (test code = 7355713790) 0.003 ng/mL <=0.034 ZAINAB (test code = [...] of biotin. Lab Interpretation (test code = 50075-3) Normal [facility] I - Code [id number] 03:15:34* Test Item Value Reference Range Interpretation Comme nts TROPONIN I (test code = 2033574630) 0.003 ng/mL <=0.034 ZAINAB (test code = [...] of biotin. Lab Interpretation (test code = 01350-8) Normal [facility] I - Code [id number] 03:15:34* Test Item Value Reference Range Interpretation Comme nts TROPONIN I (test code = 9718049308) 0.003 ng/mL <=0.034 ZAINAB (test code = [...] of biotin. Lab Interpretation (test code = 63942-6) Normal [facility] I - Code [id number] 03:15:34* Test Item Value Reference Range Interpretation Comme nts TROPONIN I (test code = 9180902967) 0.003 ng/mL <=0.034 ZAINAB (test code = [...] of biotin. Lab Interpretation (test code = 27911-6) Normal [facility] I - Code [id number] 03:15:34* Test Item Value Reference Range Interpretation Comme nts TROPONIN I (test code = 6172934683) 0.003 ng/mL <=0.034 ZAINAB (test code = [...] of biotin. Lab Interpretation (test code = 33382-2) Normal [facility] I - Code [id number] 03:15:34* Test Item Value Reference Range Interpretation Comme nts TROPONIN I (test code = 9522181995) 0.003 ng/mL <=0.034 ZAINAB (test code = [...] of biotin. Lab Interpretation (test code = 75220-9) Normal [facility] I - Code [id number] 03:15:34* Test Item Value Reference Range Interpretation Comme nts TROPONIN I (test code = 2468060635) 0.003 ng/mL <=0.034 ZAINAB (test code = [...] of biotin. Lab Interpretation (test code = 83687-6) Normal [facility] I - Code Ciyrts5698-58-83 03:15:34* Test Item Value Reference Range Interpretation Comme nts TROPONIN I (test code = 8281815995) 0.003 ng/mL <=0.034 ZAINAB (test code = [...] of biotin. Lab Interpretation (test code = 20195-0) Normal [facility] Metabolic Panel (NA, K, CL, CO2, Glucose, BUN, Creatinine, CA) - Code [id number] 03:03:47* Test Item Value Reference Range Interpretation Comme nts NA (test code = 6966565523) 135 mmol/L 135-145 K (test code = 6611870317) 4.3 mmol/L 3.5-5.0 CL (test code = 9582502173) 103 mmol/L 98-108 CO2 TOTAL (test code = 9108039663) 28 mmol/L 23-31 AGAP (test code = 7662025272) 4 2-16 BUN (test code = 7975908785) 11 mg/dL 7-23 GLUCOSE (test code = 7599619870) 120 mg/dL 70-110 H CREATININE (test code = 2160-0) 0.71 mg/dL 0.50-1.04 CALCIUM (test code = 9788582886) 9.3 mg/dL 8.6-10.6 eGFR (test code = 77976-3) 107.0 mL/min/1.73m2 CKD-EPI eGFR (2020). Assuming creatinine has been stable day-to-day for at least three months, the eGFR indicates Category G1 (>= 90 mL/min/1.73 m2) Lab Interpretation (test code = 05769-4) Abnormal [facility] Metabolic Panel (NA, K, CL, CO2, Glucose, BUN, Creatinine, CA) - Code [id number] 03:03:47* Test Item Value Reference Range Interpretation Comme nts NA (test code = 6411031117) 135 mmol/L 135-145 K (test code = 6418398080) 4.3 mmol/L 3.5-5.0 CL (test code = 1474688580) 103 mmol/L 98-108 CO2 TOTAL (test code = 8344296451) 28 mmol/L 23-31 AGAP (test code = 5955723369) 4 2-16 BUN (test code = 3220628574) 11 mg/dL 7-23 GLUCOSE (test code = 9535292160) 120 mg/dL 70-110 H CREATININE (test code = 2160-0) 0.71 mg/dL 0.50-1.04 CALCIUM (test code = 5904471684) 9.3 mg/dL 8.6-10.6 eGFR (test code = 34832-7) 107.0 mL/min/1.73m2 CKD-EPI eGFR (2020). Assuming creatinine has been stable day-to-day for at least three months, the eGFR indicates Category G1 (>= 90 mL/min/1.73 m2) Lab Interpretation (test code = 87303-1) Abnormal [facility] Metabolic Panel (NA, K, CL, CO2, Glucose, BUN, Creatinine, CA) - Code [id number] 03:03:47* Test Item Value Reference Range Interpretation Comme nts NA (test code = 6965458272) 135 mmol/L 135-145 K (test code = 0262394914) 4.3 mmol/L 3.5-5.0 CL (test code = 1616911902) 103 mmol/L 98-108 CO2 TOTAL (test code = 1526665598) 28 mmol/L 23-31 AGAP (test code = 6561907597) 4 2-16 BUN (test code = 8063793761) 11 mg/dL 7-23 GLUCOSE (test code = 0814516550) 120 mg/dL 70-110 H CREATININE (test code = 2160-0) 0.71 mg/dL 0.50-1.04 CALCIUM (test code = 0120189589) 9.3 mg/dL 8.6-10.6 eGFR (test code = 97867-9) 107.0 mL/min/1.73m2 CKD-EPI eGFR (2020). Assuming creatinine has been stable day-to-day for at least three months, the eGFR indicates Category G1 (>= 90 mL/min/1.73 m2) Lab Interpretation (test code = 84377-7) Abnormal [facility] Metabolic Panel (NA, K, CL, CO2, Glucose, BUN, Creatinine, CA) - Code [id number] 03:03:47* Test Item Value Reference Range Interpretation Comme nts NA (test code = 1505247699) 135 mmol/L 135-145 K (test code = 9163217199) 4.3 mmol/L 3.5-5.0 CL (test code = 7458408548) 103 mmol/L 98-108 CO2 TOTAL (test code = 4396898719) 28 mmol/L 23-31 AGAP (test code = 1285358366) 4 2-16 BUN (test code = 1483815409) 11 mg/dL 7-23 GLUCOSE (test code = 7350161374) 120 mg/dL 70-110 H CREATININE (test code = 2160-0) 0.71 mg/dL 0.50-1.04 CALCIUM (test code = 9679839824) 9.3 mg/dL 8.6-10.6 eGFR (test code = 61941-1) 107.0 mL/min/1.73m2 CKD-EPI eGFR (2020). Assuming creatinine has been stable day-to-day for at least three months, the eGFR indicates Category G1 (>= 90 mL/min/1.73 m2) Lab Interpretation (test code = 12266-3) Abnormal [facility] Metabolic Panel (NA, K, CL, CO2, Glucose, BUN, Creatinine, CA) - Code [id number] 03:03:47* Test Item Value Reference Range Interpretation Comme nts NA (test code = 9579907514) 135 mmol/L 135-145 K (test code = 3549068443) 4.3 mmol/L 3.5-5.0 CL (test code = 2329932541) 103 mmol/L 98-108 CO2 TOTAL (test code = 4314929652) 28 mmol/L 23-31 AGAP (test code = 8629341546) 4 2-16 BUN (test code = 4884483422) 11 mg/dL 7-23 GLUCOSE (test code = 8239315499) 120 mg/dL 70-110 H CREATININE (test code = 2160-0) 0.71 mg/dL 0.50-1.04 CALCIUM (test code = 5667031993) 9.3 mg/dL 8.6-10.6 eGFR (test code = 01940-3) 107.0 mL/min/1.73m2 CKD-EPI eGFR (2020). Assuming creatinine has been stable day-to-day for at least three months, the eGFR indicates Category G1 (>= 90 mL/min/1.73 m2) Lab Interpretation (test code = 77884-9) Abnormal [facility] Metabolic Panel (NA, K, CL, CO2, Glucose, BUN, Creatinine, CA) - Code [id number] 03:03:47* Test Item Value Reference Range Interpretation Comme nts NA (test code = 7689903213) 135 mmol/L 135-145 K (test code = 6402385145) 4.3 mmol/L 3.5-5.0 CL (test code = 0212541026) 103 mmol/L 98-108 CO2 TOTAL (test code = 9521935414) 28 mmol/L 23-31 AGAP (test code = 3785401505) 4 2-16 BUN (test code = 8525228547) 11 mg/dL 7-23 GLUCOSE (test code = 3400414813) 120 mg/dL 70-110 H CREATININE (test code = 2160-0) 0.71 mg/dL 0.50-1.04 CALCIUM (test code = 7803390514) 9.3 mg/dL 8.6-10.6 eGFR (test code = 34774-2) 107.0 mL/min/1.73m2 CKD-EPI eGFR (2020). Assuming creatinine has been stable day-to-day for at least three months, the eGFR indicates Category G1 (>= 90 mL/min/1.73 m2) Lab Interpretation (test code = 30509-3) Abnormal [facility] [facility] (NA, K, CL, CO2, Glucose, BUN, Creatinine, CA) - Code [id number] 03:03:47* Test Item Value Reference Range Interpretation Comme nts NA (test code = 2436635556) 135 mmol/L 135-145 K (test code = 1683342162) 4.3 mmol/L 3.5-5.0 CL (test code = 5837182001) 103 mmol/L 98-108 CO2 TOTAL (test code = 6432352684) 28 mmol/L 23-31 AGAP (test code = 6112564653) 4 2-16 BUN (test code = 4245353816) 11 mg/dL 7-23 GLUCOSE (test code = 1793880873) 120 mg/dL 70-110 H CREATININE (test code = 2160-0) 0.71 mg/dL 0.50-1.04 CALCIUM (test code = 7260755513) 9.3 mg/dL 8.6-10.6 eGFR (test code = 85186-0) 107.0 mL/min/1.73m2 CKD-EPI eGFR (2020). Assuming creatinine has been stable day-to-day for at least three months, the eGFR indicates Category G1 (>= 90 mL/min/1.73 m2) Lab Interpretation (test code = 65791-5) Abnormal [facility] Metabolic Panel (NA, K, CL, CO2, Glucose, BUN, Creatinine, CA) - Code Cvatiq9925-93-20 03:03:47* Test Item Value Reference Range Interpretation Comme nts NA (test code = 9466514535) 135 mmol/L 135-145 K (test code = 3632044888) 4.3 mmol/L 3.5-5.0 CL (test code = 6383882880) 103 mmol/L 98-108 CO2 TOTAL (test code = 2664582426) 28 mmol/L 23-31 AGAP (test code = 4548455762) 4 2-16 BUN (test code = 9516337194) 11 mg/dL 7-23 GLUCOSE (test code = 6691334086) 120 mg/dL 70-110 H CREATININE (test code = 2160-0) 0.71 mg/dL 0.50-1.04 CALCIUM (test code = 4586187681) 9.3 mg/dL 8.6-10.6 eGFR (test code = 04653-1) 107.0 mL/min/1.73m2 CKD-EPI eGFR (2020). Assuming creatinine has been stable day-to-day for at least three months, the eGFR indicates Category G1 (>= 90 mL/min/1.73 m2) Lab Interpretation (test code = 99463-4) Abnormal [facility] Metabolic Panel (NA, K, CL, CO2, Glucose, BUN, Creatinine, CA) - Code [id number] 03:03:47* Test Item Value Reference Range Interpretation Comme nts NA (test code = 3150829826) 135 mmol/L 135-145 K (test code = 7338064800) 4.3 mmol/L 3.5-5.0 CL (test code = 0757817802) 103 mmol/L 98-108 CO2 TOTAL (test code = 0325818900) 28 mmol/L 23-31 AGAP (test code = 8584184960) 4 2-16 BUN (test code = 3026203562) 11 mg/dL 7-23 GLUCOSE (test code = 1611405368) 120 mg/dL 70-110 H CREATININE (test code = 2160-0) 0.71 mg/dL 0.50-1.04 CALCIUM (test code = 5726998537) 9.3 mg/dL 8.6-10.6 eGFR (test code = 89878-3) 107.0 mL/min/1.73m2 CKD-EPI eGFR (2020). Assuming creatinine has been stable day-to-day for at least three months, the eGFR indicates Category G1 (>= 90 mL/min/1.73 m2) Lab Interpretation (test code = 70368-1) [facility] Code Shtass6846-82-06 03:00:48* Test Item Value Reference Range Interpretation Comme nts PROTIME PATIENT (test code = 5964-2) 10.4 10.1-12.6 INR (test code = 6301-6) 0.9 Normal INR <1.1; Warfarin Therapeutic range 2.0 to 3.0 or 2.5 to 3.5, depending upon the indications. Lab Interpretation (test code = 61586-4) Normal [facility] - Code Wsbqqg9766-05-70 03:00:48* Test Item Value Reference Range Interpretation Comme nts PROTIME PATIENT (test code = 5964-2) 10.4 10.1-12.6 INR (test code = 6301-6) 0.9 Normal INR <1.1; Warfarin Therapeutic range 2.0 to 3.0 or 2.5 to 3.5, depending upon the indications. Lab Interpretation (test code = 48266-0) Normal [facility] - Code Xljdfw8559-11-85 03:00:48* Test Item Value Reference Range Interpretation Comme nts PROTIME PATIENT (test code = 5964-2) 10.4 10.1-12.6 INR (test code = 6301-6) 0.9 Normal INR <1.1; Warfarin Therapeutic range 2.0 to 3.0 or 2.5 to 3.5, depending upon the indications. Lab Interpretation (test code = 33831-9) Normal [facility] - Code Kkfqpl1973-25-07 03:00:48* Test Item Value Reference Range Interpretation Comme nts PROTIME PATIENT (test code = 5964-2) 10.4 10.1-12.6 INR (test code = 6301-6) 0.9 Normal INR <1.1; Warfarin Therapeutic range 2.0 to 3.0 or 2.5 to 3.5, depending upon the indications. Lab Interpretation (test code = 77927-6) [facility] - Code Vogfwc2214-36-09 03:00:48* Test Item Value Reference Range Interpretation Comme nts PROTIME PATIENT (test code = 5964-2) 10.4 10.1-12.6 INR (test code = 6301-6) 0.9 Normal INR <1.1; Warfarin Therapeutic range 2.0 to 3.0 or 2.5 to 3.5, depending upon the indications. Lab Interpretation (test code = 99089-9) Normal [facility] - Code Iafsji4313-95-69 03:00:48* Test Item Value Reference Range Interpretation Comme nts PROTIME PATIENT (test code = 5964-2) 10.4 10.1-12.6 INR (test code = 6301-6) 0.9 Normal INR <1.1; Warfarin Therapeutic range 2.0 to 3.0 or 2.5 to 3.5, depending upon the indications. Lab Interpretation (test code = 23956-7) [facility] - Code Xnmxcf9019-29-02 03:00:48* Test Item Value Reference Range Interpretation Comme nts PROTIME PATIENT (test code = 5964-2) 10.4 10.1-12.6 INR (test code = 6301-6) 0.9 Normal INR <1.1; Warfarin Therapeutic range 2.0 to 3.0 or 2.5 to 3.5, depending upon the indications. Lab Interpretation (test code = 66045-4) Normal [facility] - Code Jqxjao4301-30-53 03:00:48* Test Item Value Reference Range Interpretation Comme nts PROTIME PATIENT (test code = 5964-2) 10.4 10.1-12.6 INR (test code = 6301-6) 0.9 Normal INR <1.1; Warfarin Therapeutic range 2.0 to 3.0 or 2.5 to 3.5, depending upon the indications. Lab Interpretation (test code = 79520-3) Normal [facility] - Code Nrmmrt3832-59-75 03:00:48* Test Item Value Reference Range Interpretation Comme nts PROTIME PATIENT (test code = 5964-2) 10.4 10.1-12.6 INR (test code = 6301-6) 0.9 Normal INR <1.1; Warfarin Therapeutic range 2.0 to 3.0 or 2.5 to 3.5, depending upon the indications. Lab Interpretation (test code = 11003-4) Normal [facility] - Code Btekst2645-93-77 03:00:47* Test Item Value Reference Range Interpretation Comme nts APTT Patient (test code = 3173-2) Lab Interpretation (test cod e = 27902-2) Normal [facility] - Code Prrxtb4020-67-95 03:00:47* Test Item Value Reference Range Interpretation Comme nts APTT Patient (test code = 3173-2) 36 Lab Interpretation (test cod e = 86664-4) Normal [facility] - Code Wcfmrs9028-66-15 03:00:47* Test Item Value Reference Range Interpretation Comme nts APTT Patient (test code = 3173-2) Lab Interpretation (test cod e = 73597-4) Normal [facility] - Code Ciksbx4516-83-51 03:00:47* Test Item Value Reference Range Interpretation Comme nts APTT Patient (test code = 3173-2) 29 26-36 Lab Interpretation (test cod e = 36095-9) [facility] - Code Oziyyd1431-47-91 03:00:47* Test Item Value Reference Range Interpretation Comme nts APTT Patient (test code = 3173-2) -36 Lab Interpretation (test cod e = 07484-3) [facility] - Code Whbqow6325-54-83 03:00:47* Test Item Value Reference Range Interpretation Comme nts APTT Patient (test code = 3173-2) 36 Lab Interpretation (test cod e = 14973-6) [facility] - Code Jullmn1394-33-59 03:00:47* Test Item Value Reference Range Interpretation Comme nts APTT Patient (test code = 3173-2) 36 Lab Interpretation (test cod e = 33553-4) [facility] Btdrur7655-63-14 03:00:47* Test Item Value Reference Range Interpretation Comme nts APTT Patient (test code = 3173-2) 36 Lab Interpretation (test cod e = 53791-1) [facility] - Code Aelqpg0626-80-02 03:00:47* Test Item Value Reference Range Interpretation Comme nts APTT Patient (test code = 3173-2) 36 Lab Interpretation (test cod e = 81811-7) Normal [facility] without Diff - Code Pyhcsj6326-65-94 02:52:09* Test Item Value Reference Range Interpretation [...] 367 166-358 H MPV (test code = 12023-4) 11.3 fL 9.5-12.9 RDW-CV (test code = 788-0) 15.4 % 12.0-15.5 RDW-SD (test code = 80665-9) 43.8 fL 39.0-49.9 NRBC x10^3 (test code = 1722803823) See_Comment [Automated Sympoza Trulioo] The system which generated this result transmitted reference range: 10*3/?L. The reference range was not used to interpret this result as normal/abnormal. NRBC/100 WBC (test code = 7049827916) 0.0 0.0-10.0 IPF % (test code = 0803686496) Lab Interpretation (test code = 87197-1) Abnormal [facility] without Diff - Code Yqocep7843-66-58 02:52:09* Test Item Value Reference Range Interpretation [...] 367 166-358 H MPV (test code = 50746-7) 11.3 fL 9.5-12.9 RDW-CV (test code = 788-0) 15.4 % 12.0-15.5 RDW-SD (test code = 41325-0) 43.8 fL 39.0-49.9 NRBC x10^3 (test code = 9682039062) See_Comment [Automated Sympoza Trulioo] The system which generated this result transmitted reference range: 10*3/?L. The reference range was not used to interpret this result as normal/abnormal. NRBC/100 WBC (test code = 0339408947) 0.0 0.0-10.0 IPF % (test code = 9414060804) Lab Interpretation (test code = 71704-7) Abnormal [facility] without Diff - Code Iuxfow6825-13-71 02:52:09* Test Item Value Reference Range Interpretation [...] 367 166-358 H MPV (test code = 28261-9) 11.3 fL 9.5-12.9 RDW-CV (test code = 788-0) 15.4 % 12.0-15.5 RDW-SD (test code = 39253-6) 43.8 fL 39.0-49.9 NRBC x10^3 (test code = 0472485700) See_Comment [Automated messa ge] The system which generated this result transmitted reference range: 10*3/?L. The reference range was not used to interpret this result as normal/abnormal. NRBC/100 WBC (test code = 9620487770) 0.0 0.0-10.0 IPF % (test code = 6393832991) Lab Interpretation (test code = 61157-5) Abnormal [facility] without Diff - Code Ufkjwu4154-38-97 02:52:09* Test Item Value Reference Range Interpretation [...] 367 166-358 H MPV (test code = 59205-4) 11.3 fL 9.5-12.9 RDW-CV (test code = 788-0) 15.4 % 12.0-15.5 RDW-SD (test code = 02227-8) 43.8 fL 39.0-49.9 NRBC x10^3 (test code = 4789733123) See_Comment [Automated messa ge] The system which generated this result transmitted reference range: 10*3/?L. The reference range was not used to interpret this result as normal/abnormal. NRBC/100 WBC (test code = 2405182396) 0.0 0.0-10.0 IPF % (test code = 9151065691) Lab Interpretation (test code = 70167-6) Abnormal [facility] without Diff - Code Hwxybu6168-26-37 02:52:09* Test Item Value Reference Range Interpretation [...] 367 166-358 H MPV (test code = 51171-2) 11.3 fL 9.5-12.9 RDW-CV (test code = 788-0) 15.4 % 12.0-15.5 RDW-SD (test code = 11392-0) 43.8 fL 39.0-49.9 NRBC x10^3 (test code = 5120407147) See_Comment [Automated Sympoza ge] The system which generated this result transmitted reference range: 10*3/?L. The reference range was not used to interpret this result as normal/abnormal. NRBC/100 WBC (test code = 9916702522) 0.0 0.0-10.0 IPF % (test code = 7684702417) Lab Interpretation (test code = 63549-3) Abnormal [facility] without Diff - Code Dalnmj7777-34-83 02:52:09* Test Item Value Reference Range Interpretation [...] 367 166-358 H MPV (test code = 76205-5) 11.3 fL 9.5-12.9 RDW-CV (test code = 788-0) 15.4 % 12.0-15.5 RDW-SD (test code = 67182-5) 43.8 fL 39.0-49.9 NRBC x10^3 (test code = 4855120790) See_Comment [Automated Sympoza Trulioo] The system which generated this result transmitted reference range: 10*3/?L. The reference range was not used to interpret this result as normal/abnormal. NRBC/100 WBC (test code = 3990053889) 0.0 0.0-10.0 IPF % (test code = 5851917931) Lab Interpretation (test code = 16424-6) Abnormal [facility] without Diff - Code Lyazyx1753-10-14 02:52:09* Test Item Value Reference Range Interpretation [...] 367 166-358 H MPV (test code = 95019-8) 11.3 fL 9.5-12.9 RDW-CV (test code = 788-0) 15.4 % 12.0-15.5 RDW-SD (test code = 26974-9) 43.8 fL 39.0-49.9 NRBC x10^3 (test code = 1364548628) See_Comment [Automated messa ge] The system which generated this result transmitted reference range: 10*3/?L. The reference range was not used to interpret this result as normal/abnormal. NRBC/100 WBC (test code = 2135529622) 0.0 0.0-10.0 IPF % (test code = 9859518338) Lab Interpretation (test code = 52238-1) Abnormal [facility] without Diff - Code Onzxyg0467-01-21 02:52:09* Test Item Value Reference Range Interpretation [...] 367 166-358 H MPV (test code = 59424-6) 11.3 fL 9.5-12.9 RDW-CV (test code = 788-0) 15.4 % 12.0-15.5 RDW-SD (test code = 22309-0) 43.8 fL 39.0-49.9 NRBC x10^3 (test code = 7535256546) See_Comment [Automated messa ge] The system which generated this result transmitted reference range: 10*3/?L. The reference range was not used to interpret this result as normal/abnormal. NRBC/100 WBC (test code = 4765174974) 0.0 0.0-10.0 IPF % (test code = 5583651470) Lab Interpretation (test code = 80902-2) Abnormal [facility] without Diff - Code Hfhlin1467-58-89 02:52:09* Test Item Value Reference Range Interpretation [...] 367 166-358 H MPV (test code = 62793-5) 11.3 fL 9.5-12.9 RDW-CV (test code = 788-0) 15.4 % 12.0-15.5 RDW-SD (test code = 71149-8) 43.8 fL 39.0-49.9 NRBC x10^3 (test code = 2263269071) See_Comment [Automated messa ge] The system which generated this result transmitted reference range: 10*3/?L. The reference range was not used to interpret this result as normal/abnormal. NRBC/100 WBC (test code = 0579744160) 0.0 0.0-10.0 IPF % (test code = 4535650210) Lab Interpretation (test code = 18897-7) Abnormal [facility] Glucose (Age >30 Days) - Code Stroke 2023-06-08 02:39:00* Test Item Value Reference Range Interpretation Comme nts POCT Glu (age>30days) (test code = 3342) 124 mg/dL 70-110 A Lab Interpretation (test cod e = 87125-3) Abnormal [facility] Glucose (Age >30 Days) - Code Stroke 2023-06-08 02:39:00* Test Item Value Reference Range Interpretation Comme nts POCT Glu (age>30days) (test code = 3342) 124 mg/dL 70-110 A Lab Interpretation (test cod e = 66359-7) Abnormal [facility] Glucose (Age >30 Days) - Code Stroke 2023-06-08 02:39:00* Test Item Value Reference Range Interpretation Comme nts POCT Glu (age>30days) (test code = 3342) 124 mg/dL 70-110 A Lab Interpretation (test cod e = 72218-1) Abnormal [facility] Glucose (Age >30 Days) - Code Stroke 2023-06-08 02:39:00* Test Item Value Reference Range Interpretation Comme nts POCT Glu (age>30days) (test code = 3342) 124 mg/dL 70-110 A Lab Interpretation (test cod e = 01967-4) Abnormal [facility] Glucose (Age >30 Days) - Code Stroke 2023-06-08 02:39:00* Test Item Value Reference Range Interpretation Comme nts POCT Glu (age>30days) (test code = 3342) 124 mg/dL 70-110 A Lab Interpretation (test cod e = 56889-1) [facility]Age >30 Days[facility] - Code Stroke 2023-06-08 02:39:00* Test Item Value Reference Range Interpretation Comme nts POCT Glu (age>30days) (test code = 3342) 124 mg/dL 70-110 A Lab Interpretation (test cod e = 99606-1) [facility] (Age >30 Days) - Code Stroke 2023-06-08 02:39:00* Test Item Value Reference Range Interpretation Comme nts POCT Glu (age>30days) (test code = 3342) 124 mg/dL 70-110 A Lab Interpretation (test cod e = 82127-1) Abnormal [facility] Glucose (Age >30 Days) - Code Stroke 2023-06-08 02:39:00* Test Item Value Reference Range Interpretation Comme nts POCT Glu (age>30days) (test code = 3342) 124 mg/dL 70-110 A Lab Interpretation (test cod e = 47917-5) [facility] (Age >30 Days) - Code Stroke 2023-06-08 02:39:00* Test Item Value Reference Range Interpretation Comme nts POCT Glu (age>30days) (test code = 3342) 124 mg/dL 70-110 A Lab Interpretation (test cod e = 68350-3) [facility] Abrzx2322-02-05 19:59:01* Test Item Value Reference Range Interpretation Comme nts FERRITIN (test code = 2641296877) 22.4 ng/mL 6.0-137.0 ZAINAB (test code = ZAINAB) Biotin has been reported to cause a negative bias, interpret results relative to patient's use of biotin. Lab Interpretation (test code = 30429-1) [facility] Ilmlc7097-37-63 19:59:01* Test Item Value Reference Range Interpretation Comme nts FERRITIN (test code = 7515537215) 22.4 ng/mL 6.0-137.0 ZAINAB (test code = ZAINAB) Biotin has been reported to cause a negative bias, interpret results relative to patient's use of biotin. Lab Interpretation (test code = 03276-1) Normal [facility] Vpxjp7853-00-74 19:59:01* Test Item Value Reference Range Interpretation Comme nts FERRITIN (test code = 4281857758) 22.4 ng/mL 6.0-137.0 ZAINAB (test code = ZAINAB) Biotin has been reported to cause a negative bias, interpret results relative to patient's use of biotin. Lab Interpretation (test code = 83927-8) Normal [facility] Jkfzj6982-48-39 19:59:01* Test Item Value Reference Range Interpretation Comme nts FERRITIN (test code = 1276722397) 22.4 ng/mL 6.0-137.0 ZAINAB (test code = ZAINAB) Biotin has been reported to cause a negative bias, interpret results relative to patient's use of biotin. Lab Interpretation (test code = 30553-5) Normal [facility] Sbyiv0158-71-71 19:59:01* Test Item Value Reference Range Interpretation Comme nts FERRITIN (test code = 7654861101) 22.4 ng/mL 6.0-137.0 ZAINAB (test code = ZAINAB) Biotin has been reported to cause a negative bias, interpret results relative to patient's use of biotin. Lab Interpretation (test code = 18629-7) Normal [facility] Jztnf3839-86-32 19:59:01* Test Item Value Reference Range Interpretation Comme nts FERRITIN (test code = 6083301280) 22.4 ng/mL 6.0-137.0 ZAINAB (test code = ZAINAB) Biotin has been reported to cause a negative bias, interpret results relative to patient's use of biotin. Lab Interpretation (test code = 97092-5) Normal [facility] Ntavj5112-70-98 19:30:52* Test Item Value Reference Range Interpretation Comme nts IRON (test code = 0954044557) 54 ug/dL 50-160 TIBC (test code = 1971818059) 434 ug/dL 250-410 H % FE SAT (test code = 7931698038) 12 % 20-50 L Lab Interpretation (test cod e = 06072-7) Abnormal [facility] Jdxal3232-79-83 19:30:52* Test Item Value Reference Range Interpretation Comme nts IRON (test code = 4899658007) 54 ug/dL 50-160 TIBC (test code = 6553591665) 434 ug/dL 250-410 H % FE SAT (test code = 9824919182) 12 % 20-50 L Lab Interpretation (test cod e = 27906-8) Abnormal [facility]2024-01-04 19:30:52* Test Item Value Reference Range Interpretation Comme nts IRON (test code = 1067924535) 54 ug/dL 50-160 TIBC (test code = 5779122811) 434 ug/dL 250-410 H % FE SAT (test code = 5639628112) 12 % 20-50 L Lab Interpretation (test cod e = 56796-6) Abnormal [facility]2024-01-04 19:30:52* Test Item Value Reference Range Interpretation Comme nts IRON (test code = 1941317027) 54 ug/dL 50-160 TIBC (test code = 4953785719) 434 ug/dL 250-410 H % FE SAT (test code = 9893800845) 12 % 20-50 L Lab Interpretation (test cod e = 63783-4) Abnormal [facility]2024-01-04 19:30:52* Test Item Value Reference Range Interpretation Comme nts IRON (test code = 5541636684) 54 ug/dL 50-160 TIBC (test code = 4094096308) 434 ug/dL 250-410 H % FE SAT (test code = 2068983024) 12 % 20-50 L Lab Interpretation (test cod e = 52424-9) Abnormal [facility]2024-01-04 19:30:52* Test Item Value Reference Range Interpretation Comme nts IRON (test code = 7930671344) 54 ug/dL 50-160 TIBC (test code = 2289701182) 434 ug/dL 250-410 H % FE SAT (test code = 4270491741) 12 % 20-50 L Lab Interpretation (test cod e = 40006-0) Abnormal [facility]2023-12-11 20:01:05* Test Item Value Reference Range Interpretation Comme nts Laurium (test code = 9553364189) 0.5 mmol/L 0.6-1.2 L ZAINAB (test code = ZAINAB) Toxic Range: ? Greater than 1.2 mmol/L Lab Interpretation (test code = 04773-9) Abnormal [facility]2023-12-11 20:01:05* Test Item Value Reference Range Interpretation Comme nts Laurium (test code = 7207075898) 0.5 mmol/L 0.6-1.2 L ZAINAB (test code = ZAINAB) Toxic Range: ? Greater than 1.2 mmol/L Lab Interpretation (test code = 48271-9) Abnormal [facility]2023-12-11 20:01:05* Test Item Value Reference Range Interpretation Comme nts Laurium (test code = 8508127662) 0.5 mmol/L 0.6-1.2 L ZAINAB (test code = ZAINAB) Toxic Range: ? Greater than 1.2 mmol/L Lab Interpretation (test code = 16113-5) [facility] VGYH4430-80-43 19:23:05* Test Item Value Reference Range Interpretation Comme nts Case Report (test code = 4319294946) Surgical Pathology ?Case: [id number] ? Authorizing Provider: ?Dominic Keita MD ? [...] HPylori ? Final Diagnosis (test code = 7551060149) f5ltjZMjDRHxw1xsHYYkzL FuZzEwMzNcZnRuYmpcdWMx CKytkfEqVKxyxXpzRSM0BA YnXO4psWlepEc6hKvjXZJi cxH8pERaWLbqz3xjDVX8d7 mqqizpQJLmLDmpVz2idZPn mHhfFrGdSFQjXYe5uL69MS BdpA4uqUMvILv0LHVqzUSq rqUbBkNsHGMliKEdaHU8TG HvZW3ydfxnPEfqDUrqTKNt njJ0JTHqpETiU9QeAOGmVV 0utcbuLHM7GOcyWPWiJNE8 IiPkDKOgq9Sbpkg2XyQodQ FyZFxwbGFpblxmczIwXHBh feCBTdYXKR2GPRBLPLVYN9 dBDSKTTG4YYHZJPdsreILj WNTjUUDhPGMAPI6ZXLWgJ7 xQZdWrAB2JKAVvPZPogHEd EZPhhuGUCgCVST8REC2XBU wgQklPUFNZOlxwYXIgICAg HOWlDCfSF3YIEUIuHWUHA1 VKJBhZUXngTa8pITDSHR0V B7uNK2WQNQCTSN3JEXzcDS UdDCFtAXXvYZ5MYNfiDGWU BG9YBCHEQBGUUDcHJMHJYO FJAGcSHHRZK7KAFXtKEUVd mgfgMRMvNe5qR1YZGWYJPL wgQklPUFNZOlxwYXIgICAg UBAfGARIU1RKEnTRLD0KL0 0NDOLRADBHNL8DBHEEUVbN NJ6FPVUGEKPDQGOEI1DufC FyICAgICAgLSBOTyBFVklE YE0SPWPJSoWBLHjQUOIfMZ lTRUFTRVxwYXIgICAgICAt YO6HRRzwCKIGOR6IXGNYYc dBTklTTVMgSURFTlRJRklF IWADFEBNJT2JBi3DYOPBIm xwYXJccGFyfXtccnRmMVxz w9OqI3NpDwKeNYawvrHgIO SyAmdvidhbOBBmROL7liWh NEIoISzpGVHiPQrpXk2ksD VjbFzxZmGaDZNdh7yvxlSV RKosSxIhA744PVWbOZmqm7 cif3YqVVHhqUFms0O5ONWH brkqbLr8z1dcGuPqFpP3qH VgLJaiT9kazrKsbXZlG1Fc dOZagTv7wGnnL83qq4I1Gk gaA9ocTRLgNZFpO7VkGS8o TCGmLmr7PVZ7AYX0GCQfHH SwF3BbMI7nTUEzxCWkBKc2 k7cinHenIKKlOBO9g3jhUN ajcjP1PS8jii3qkFk4i6kv czEgRGVmYXVsdCBQYXJhZ3 PoqVukFt9gaUg4oTeeLqbd PZG7Vhf0MV5iru87ksb0qO ilOVKmdbvxWsV7QNehBPSg dcgmLSt1YBviMIPlmTY3NO FiuKLoE8ZfDMSrBU5aypd3 GBD5QBpbEMWsOyQ4BOTuqU EiUXSahYaxRWqhu005HOP1 RbNoID0zC1Lke6R0jV1agQ ViHWFraUKlIcYbEEWnbt0s zBPvRPlph6DyDFY2jkF5hJ XuiLDxOUMtHO12Oginp6Bg SxaeMCM3ZPPuttCiw8Hxv1 scYcKuhhUaA2jpI7TtYJNt RZUhICTwGkGolvZjh6Gcy7 QzlWZlqIo9g7yaZJQuXAGl qOefk1omSES3DSHrM5L5qD Zpd0wgPPojGOXilQU3soW1 ZHMbnXHaD8UnqQ1xTCFpCC 8vsie4w5grSOF7FNljHCFr XhQ0caB4ZSPnwHQxUBOahZ zdOEpxu267KIA6MbZoIVIy t5VtP0MwvMbaA94vuSsuI4 8xCVPboHbouM6apMjimG8w ZjBcZnMyNFxxbFxwbGFpbl xmMVxmczIwXGxhbmcxMDMz FMuhS3ovSqKjSDAcuEjnOB wre9FwUFHiKYAuMdjclrXx XHBhciBJIGhhdmUgcGVyc2 9uYWxseSByZXZpZXdlZCBh cRgir9YeK5vdXL2fL2RlnT EdllJudaWwHSrnCKCja9z9 aSSddKoig6BsqQKpLW70oe LgZTMfJLY4TYNcl9snYE18 tkjeYtDbdV77ekAhfqZdRV Bpk1msQ6ykwGOcl5Jgy1Yp acMsSSmef4YeJQ5fzXOeym wsfLD2XXNekWIgjdNlkvQ6 oZiaULLvhX0awW4avCkpyY 2tLrUvWyQfNHbiHN0rZRGs J1jfuADeVYHfSZCnX3fkIj YanS2fwWazPihnidN5EMNw cn19 Clinical Information (test code = [id number]) Shivani Schuler is a 47 year old female with IDA1. Gastric polyp x 6 r/o adenoma2.Duodenal Bx, r/o Celiac disease 3. Gastric Bx r/o HPylori Gross Description (test code = [id number]) j4psgOWzLERsfEPHADJ7OG KyOW1rcJyyvXv3zQquTBCs oxB8dLIbLKzfi4huTQR8u0 gfdyKZHtwlIHFcPM5pEOue GLBkDN6rHfMaKPChHwVxYJ BhcGVydzEyMjQwXHBhcGVy xCO0YNXxFJ4mpeumVCxrLV dzVHLnddD7NNUhoDEwQ5Bn ERXpWJ8eilzaHDS1DRLSNk psBs5vyBKhpVkaGaYqCqIf YXJzZXQwXGZuaWwgQXJpYW t7eV5VIfwkWSR8LPIHWdsc JjljrAcoc6ArqWKtDJZaCL xcaWQgNTEwMDAgXFxkYiBP AyMsCvH6Mjs8JWT3IoD7XF o2HQKRCOOnKbfsQVN4AlR5 FBi8SBYcQF7wPYnuiWMqWS opHgbvXPbyS337KQpmEQDj M3XhB4IyYEymLxYoKShaQS XlWSXkQArbAHAoQ3VSHJOg VLG4WvMgXIUbACn2ULhlT3 VAFLUrCIVfBiI8ZCYhYyI8 GGe2IYCEBf4iKYjoJvKoWW n9KYE5IKt5PsWcSSUuKpPm OJWtKDLpZGqjlSDcPS1qmS ozKEQbKX2MGCXlFZmmCKTt UxXoN1UCC8eAZC2lWIywnN JjaFxmczIyXHBhciANClxw WADfEA0UBTUkQIepPHf8su OfODEnLbKgXIEkY95sn8OR z3SkJZ5VUBa7sjWwsfwbwZ 6uESVvgkKbSTlYjDCfqB0s xlLGRRbjZZHxU2OhurXhVE euGQQnqf5coRbdLWreCvFr bGVkIHdpdGggdGhlIHBhdG slrmRgA0H6qgAkWK1uZZVK LRGdkR5wCAXmPKDhv2IhaO CmsYyeP9JvfJPnPoSku4h8 fPZ1IYPykeRcMJFlwEUfCX Fnpq5pHIqmViUtB1M1WBNz OHDwk65cdJZ3mpEaAjOgyX z3eLPoMKE7RW8crHdyoiKz m6b3qY7aKKFuv4V1TXUhl1 B8ZFTymxGpwDDnhEDaHQDu BS4wsuLbPU18FCEuZWcfFO bnGNB2ZCI1VSLmcQTer6dr wwvkIw2wTZdqBB0aRNaxPT 31IVGeSDxhKRHxY1OxF6I6 TMihRNFoXYEasGSjmA7pbt MvstMwnRh5PTSlQWD3bRRz dNlqIXOeShasuDM4XGDoZc FnlbQhp7RisTu4nCSnKRmy ZNNciT8veK2wYRLkCEQmzm PJEsnrNNAxTAeaf7LqRDkh cGljWHNhMzAgDQpcZXBpY0 8xg8KAs0Pov7lksQefc7Wa tPMnXP3rdYSzQU5Ai0bqLU IntANvAZA7AUxly3csETjp UQZ5LUWuQoCfSUFnHO3NJm GvBWhsCZo8YFvpNJq0DMr4 UI4VCpRhRVCdCtr1KwV2Zo SfLKw3KLmqCX1KSCY7RIHw DDIiQUxrOFN3ZNInEAv4RY IgXFxzcyAzIFxcZmwgXFxu S75fuMNbOUqqHyJwDMadbG ogRLCzDYU7XH1ROSTrGxNq N2GBG6zVCW0eTbaxvaIqWU GzoxFMTiqnCIIhUG8IIGUg WWppNAi6vtXgMJFvWeNtMD FaF37in4XXe4GzHX5CJDc6 ubAjcxageI2pBOAksoDjf8 IzMFxlcGljWHNiMzAgDQpT wUCdlD5tciCTWClcISJeC9 NtjnIvGLweGKMsvs2wtFix IGxhYmVsbGVkIHdpdGggdG rhLCGolNabgfQdR4D7ibNd JI1nNXFLUOCpkZ8kECDeAK ScWHRlPYCxpO4kRPJ8l8Sz pmXaAGBTXRRxgVoiQJ12gH BjZWxpYWMgZGlzZWFzZSBh loUpsjEge17acyMgt7HuVQ 9xcXpxJXbLYAfeXbYpWZ1h UERcfvEgd4SlZL3cOUTsrD FrBBFizgqfrRXcEJl6kOSn ZOKxEoBtwEvqp5NoEUBlDR pjNT34toKoKK0kGOtsLS9g IYqcYV2uULVrCNOvRHYnTp EznHRkIkHzbZIvJmBtY46s GeFGgKEua7YhQ6joKU0dbB UpNebyzIBkYDKgbQiho5Rv hDSfHHTjp6NhyDFvFDonYL 8dZXP1Ck6lsDHjPRQghpU2 h6KtNVyaIRPuIlpaITWuES teh1JbUBVvfLFSe8BjNU2I XHBhciANClxzYTMwXGVwaW DTf1JlCISSJknhkNqeYjBs lMEiAxY5EBSzuVQyBDB3FR 9xwBdhCTMuVLd9OSbtQLOf J2IyD7YhSKblVgYhXHouGD RsTYStQIqqGVFnD9KVPZPx PDG3LpOrFIKnOJh4KPxnG0 CXTDCiULHwOzF4BLE2IcI6 DZu0IVYHMq0oOFsbCdGvVU OfYmN6RNi3FyIuTQDsFxPc LNKaDXBqUBdmnDYmKF3itO mcLAKzPGGsAPE8AJKimJVO h6RtXPZlCGtmQqZySFSGUL RIUX3UTbLNTEAiOcRbeLHh DK2EZILybjTuGHnrrIinuY 9ikTEpV6vsRrPhYeghsSdr TmVzdERvYzEgDQpcbHRycG FyXGxpbjBccmluMFxzYjMw DIIgxBIKl9WbAASOCrDeRF NpbWVuIEMgaXMgcmVjZWl2 YOUfoE6wTe4pnODasE6rcA SjVEhxMSXew1f5xKV0vPTy tFO6qOXmzHtgCdPsPH9eeG YfOVOONX74fNBuokQxNPAl uS0xVAQqOPBbPXW2elvyUO OUKDF3aWZfd8T8JYekLRS6 bK0gxIpxErQtZ1B3DKOaNS Flz92rwIU7qdWxEnKcEGGq tc0eqV7aSWguiyMjlHvoln Qek1J9DETnp0N6DWQnbtLo kBBqvGZsCMRoFeP9ZHIoTo G0TRCeHCJgkJPjVDXbSS1t VGhlIHNwZWNpbWVuIGlzIG GluGAswmHuIBYeje25C8pb UTAfrE8pl4lcKmJoNBWpAG UkpGCwcEC8TTNsuE2ojX11 joBfytODME9kvRZxKA5HKU NiMFxlcGljWHNiMCANClxw UMPcLHhiy2GoMZfkeVcjEM IwArHmFGmIwVlaENVUG0jb jATaMGxiLSDQXSxUU6JNWH 7XOTFjcMKTZTT3MN0fQNoc ELZcW8DsY1MhsgQ9q3itkZ wiq6IvrOWpQT7esTGlHI2R XHBhcmQgDQp9 Disclaimer (test code = [id number]) w4qjwXRyFRBid9epFBJpbI FuZzEwMzNcZnRuYmpcdWMx THryvjCjEAvjn0ZsQ1PvJo AwMFxhbnNpXGRlZmxhbmcx DNKiHIQ8fbGiPSKjGBsiCT AlMPjvUh2fpDVdoYbxJpCs MOZbn0rdssAGWZmgTwYfE7 35KGUqBZxee0qlg7DvQIAm jZQxi0L9ORADiifhkUd4eG ciG88rh8U6BlnvP7mlEODc MBQgE0FcGX7lWMCiCtf1QR E0BKJ1BNLkSVGvJ7PcPN0s GVDnxJEqHXi2m9xflAnmAJ GcEGV2p4jnUYiagrAsRK4v dx2gaSe5b6yylhZoBKGpLE FmjUYYHLEgA3MxzJonNf4n rMd2vHmjCpsoZCW5Luq8ZE 1ucs72rfp5iZcyPKYcdpkh OzK5DWmfNWYrxdlmBGc5GP rmVEMuiEM2KOVxmCTfT5Vy HMBmZU2spwa7GFZ7VDsqJO HkWmW1YOSpdAJbUORmlZcs SWtca944VJK2MsPbSD7aL7 Txn9B0pC2zvEWaHMHqiXUd OuFhDFOhxg1vxGTvFUbeg6 MhTGZ1ztM2xKDscLLhWTBm WH70Qvzch6NmYnhxp1NaE5 1yeFS6AZvpg2ziTD7vVlG8 ndFdKPmzy7ysnN1lEqL7HR coKY2fWI3oUUBgrK8mtvfn XHBnYnJkcmhlYWRccGdicm PhWy5rvLtzKZF1UGvzC0og wI8tTjM0VRheM0cdjB1gMV z8KIidvIJ0GTWeaR2iOC4y kigex9qzBGibXYlfVWNvgz T7vsB5AGQwwLRpM9EtwZ5c ONPdMT5scsbmn8otYLF7FM weBOPmZTZ4GtGsVZQjt5Rb ime4UlIsm1DrkTTfBFrnB8 8er238RBJeiiLpC8jspKUs vqgpiISewnexXMhyfaQ4TU LcduCzs3HuYHIkFQT5FFkn QSjjkXLxRRIijEyuc1unV8 RscGFyXHBsYWluXGYxXGZz MjBcbGFuZzEwMzNcaGljaF qxCHmfQbToIFWwZQbcO5sd LjPoV9YeXFEuJfIzhKHyV4 ggVGhpcyByZXBvcnQgbWF5 DYcfI3b9BYUuyeOflSz8xa JjVcMhGORfFFB2RVnyqVQo KDIom5XitpuetMMfHl5ieS WfOHJsrZ1eZCIgWYKjGEjk AF8cfGz9MTQUdSEefAHkMp FNXVMlUA40ygRyEIAPytwn f8H7CUhzZEBkn2IzuEHbA3 tzj1HpLNDrs64jIU8uf6V8 l8eyWNK0TK9so1ZyYTRxsO LenHBaXSZro3Urlivyr5Dj ZRMkvcRne2XmEBFbkoZtoR XkMZCrtfXztk9pgiWnMKCa NKRoT3XjixxpfQtwnhKdJJ Tnwc8vmbElMLX4VIYKBAKa YWCay5EdgR2xdWCXRRD5gT Ycmd6dkjYIhYVkHMTgme30 IRAwBG2eQ1gmKLFlKVJvie OxaIVca6TsEUQyyRP7dJXs RI1PDwGTs07dNPUsOZSMes KaKTLddImrdKA9drV4gB9y IChGREEpLlx+IFRoZSBGRE BqMZ1kwfAwm2ZuceDruVva UZHncQXet9MvqSKwu2SnxR mkx6YhgLLfgEXxCF3pRWAz clxwYXIgVVRNQiBMYWJvcm U0m8OzVNRtTMNqFBV3cLdl fkv0BVLgwK2dULAzE2peit ctRNajWIEsu3DtxQ1fePUV wUFrj5LezVQjpPLJrEYpCA 4mmeUwZVqOWTpVFWM3ljTy UHQtz1XfETmqY5xzS60htB bspZx1tVH6PAC5wE4zSda+ IFxwYXJccGFyIEFwcHJvcH YeYZMxnUzcjgVwD3VeyzPq pQ4bgCXaywByAO7rED2kJ3 Z3fDMcPHBotgSmh5ziLGnb dmUgYmVlbiByZXZpZXdlZC Vli3FoHAazKOZ9EKakifAq bmNsdWRpbmcgSCZFLCBTcG ItuXAqHDH4HWjvceZqcvVs XF7wmL5xcGuvnP2zaVSupP T8kxslTSSjLIJlzIdrRLYl QY4inDqasC6aPlRfHlAoUG ecEE6pMZXdY7clzOOqKVBc TJHnJ0yvWzQfoU1tyRznKZ xjZjJcZnMyMFxwYXJccGFy XHBsYWluXGYxXGZzMjBcbG FuZzEwMzNcaGljaFxmMVxk MdYlQYRlIQjeP5udErOlV1 UpHPOkGtIobIDvD1jjHUiy MLP4ROEzHE4ebEAoSL32mW Ywv7ofKHqyhJlzsi0zT42i aUTsDIsbiMuvXYQro21xp8 AzYALnmgNxta0vFRRsxyD3 bB6nEEPlwZgdXCTtyBXdLQ Jnt2XmZPdjpKXjorPxXIrl YOXvBZHqzVXvacN4lhLnel NehtAkPCSqwEnbXPClx5Sc XMHoZFoub8Heiw8boAAvGE EbtyAErUkvwCXokC3sJ2St JBMyGXLumw5nFTDnjM6iHH ckr4NrcwvdALXuXIPpKNUe bfBvys8sJNHjcBTPMG8MFM yrtSZbj9TbsnBzA3tKYWT3 NUQwNjYwMjgxKSBleGNlcH SkMBXwup23YPYnrF8zkByi APGcaZ4dkH7daZfxnK8wHz InJmXeKUwcAT7gLSQeD0hh dIKbIOChXENvT6qkKdFwcV 9jaFxmMVxjZjJcZnMyMFxw YXJ9fQ== Embedded Images (test code = [id number]) [facility] [id number] 19:23:05* Test Item Value Reference Range Interpretation Comme nts Case Report (test code = [id number]) Surgical Pathology ?Case: [id number] ? Authorizing Provider: ?Dominic Keita MD ? [...] HPylori ? Final Diagnosis (test code = [id number]) j1ecuVHqYOHpx1bwUPRndW FuZzEwMzNcZnRuYmpcdWMx UEhgkuWeYCtokEndYNX9FQ GcUK6lwZnpdKp8tUnnYTNo npN1xNAcEYyke6wzQTE4p9 ekilbcCTQzWSxqRo3uhMUg xWysOtDgQWZjNPq5bA63LS ZukQ6kxLIsFXh6IFVswQYg gjWqOdEnTSRwiDCexKH5WL LnLM1monzhTEelKUwjHWXs fkZ1KWQxrWZuO7CuFSTgAU 5zqfbySND1VFwfPUGlJAK6 OlVnDDEqu2Zwmna4VtNbjU FyZFxwbGFpblxmczIwXHBh gvCXGjAJXW8YVVKUPWUAN5 yMPDNUOZ1OHFZAYcilaVAe BSAgBJPoCCZEKB9OTCNtM1 uNYxQfSU1AWRQwTBTjuDUi YYYemuMGQdGHYU0MOT2FVB wgQklPUFNZOlxwYXIgICAg NXGxWTyOV2NEFWGfUPBPE2 PZBRsLXYvaIj7vUFUDAG8D K8eHN7LYDAPEQX0IEHddEN RkHWUrFXYmOL2ULFxvDBYH KH3FPRDCISOMBAyUNHNYOL SWVDdURNPRP2CZCSdJTVZz slyuDJNmZx3kU3XMDIGZSA wgQklPUFNZOlxwYXIgICAg AELrQLEQW5NOJbOQYE4WM5 4ZUVRJSEXMLF5XKLJGGJnQ EZ8PMATZRPMKIOVLU4WljL FyICAgICAgLSBOTyBFVklE FK8ZAEWCEdZVODhUQAZpHN lTRUFTRVxwYXIgICAgICAt XI5UNMmtJDTWHV0GHTLNNp dBTklTTVMgSURFTlRJRklF BJQJAKPBIX7FFt7GITAELx xwYXJccGFyfXtccnRmMVxz b6XnQ0IfOkRpBTmfgoDaUJ NvTdmkxunhONQdYGF0opUk ZJFjVFeuANWzLZhfKu1uuK HspIzeSoBiKNWlm7pzkkFY IAsnQwMgP686XPOnGIppc5 wkb7PeJVSgkOKvp6A6XNOI tzmhcVn9e1udKmXcYcY4eD DqCBviI5zwutLdtIWuZ0Eu lFNsvCc4lUuhG07oo2H5Ov vwX2heAAXxPGIpP7NcSU5c WEWlIva1LDY6NBT1ZMQzZS JhB7JeSP9gGQNnuTGkNVv4 p4utzUhtQGJwZCI3s0arJE mbqpG0QP5rci0ujXo6f6mg czEgRGVmYXVsdCBQYXJhZ3 ZjpBnaLb8ayBk7yQewFsqh BGP0Vmj6RZ0jtd69wzn5uE xpHZNlxjezAhM9BYpxVBEe dhchXPc8OPkiIERrsWZ6JF SqqBQgU0VsXAFqNF3adqx0 UKY3GLonBYJdWsF8JUUdhL MdIAUmyTmaJOlfy242WDD4 XfNlMH6sN0Mph9Q6eP0ocG HlTURbaOKlXrRqTIMsbo6g fBKrKZsss1RhXKC3lwX0xX FebJRoDXZzHG12Ybrlv4Xh UetiUQI3BLDrcnFfc0Rnk6 swIjOrqcJgA6czW1ZsJUNi CNSiOPQoVcBhylBcu0Vli3 NctRQshLl6l7iiBIGvDCRn cZphe6vyLLI1GSPsL7E9rZ Fvd0khVXqlQGNibSJ1ksM1 IDEqwIOwG1SpcC2kDVWhHN 1cdnw1k6vqKXW0CDykILTj YoY1hkF8IABbdHWnJTYgiH ypOIjnx991JWX4QdJqIXHv a9KfF7DebNsvA81bmMvrU5 5pDFPydClisD6hgBrmdD0t ZjBcZnMyNFxxbFxwbGFpbl xmMVxmczIwXGxhbmcxMDMz IWwsA5feCyRxBGOvcCccWT ssy5HfSGUpCRFuMpprdfBp XHBhciBJIGhhdmUgcGVyc2 9uYWxseSByZXZpZXdlZCBh pLdnp5LwR5zlFV9kY8PobH DoiqRslkRlBCoiFZLyx9m6 mEEojRhuc3LbeVGhON60yk DkXAIdWBL9BXVce3xmIJ39 eihxAgEebH36coCzahJdOC Mhx9kbI7foqQRja2Kpd4Od zfMiJWgif2AnHQ5ilMAidl kreHF7QLSxfJEbmmJxnnS3 wXsjCMUqgR0lhS5npYyvfF 6uIbYfZxUlWHpiPJ4sHYZt N6ujkEHxXQPwDYNwE8ljFw YepF9lzNzhQgjqsjY9JWYq cn19 Clinical Information (test code = [id number]) Shivani Schuler is a 47 year old female with IDA1. Gastric polyp x 6 r/o adenoma2.Duodenal Bx, r/o Celiac disease 3. Gastric Bx r/o HPylori Gross Description (test code = [id number]) m5eilKYuVVSiyYVINXP6IA JrEW7sxClbnCi8fNkxEXJq tpK2hLBeFFtyz4adKPE3r1 rwnwANCeuoSVNmWC1uVQrb WINkJM9iSpBiTUBnGiCgDW BhcGVydzEyMjQwXHBhcGVy vYN6TMYnKO2fpsyoMIocZI ksRNIgijA8NFMwoSRkG8Bp RYXhJV0mafouPXP2QNFEEo aoIk6feCJgxCkyAsEwMjFo YXJzZXQwXGZuaWwgQXJpYW m5iX1GVogqGYD2USUYAhqa GvcypYzrx8IgvLWmQKAyZS xcaWQgNTEwMDAgXFxkYiBP JhNnHgG1Nds2ZNM6TaH7CT i4PAEIMMYhPcyqAXL3KkX9 UXl3QMNgEW6jQLsmoQBiKK tgYflaPPivD464SPxfHMSx Q8LcT5NiQWtcInThZZjrIC SuXKGqGIkqGMGaY5YQRWEt WWB3ObNvVVJiUHv5WMubK8 EQTMRfGPZjZjB7OJYcVpJ5 FJo0ZQMVPf1aTUrzZyAyFX s6QEJ7CHq1MsMjCZYlYmGa MCBzIUAoXQkdmXBsKL4vpM pkHQZyIA2YLJQiHBmnELJe BeYoE5DTN2jABK4wNQqmiV JjaFxmczIyXHBhciANClxw TEUxOB0TJWZrJZloKDg5km YgXDNfPiCgQMQwG78ii6LT h7BwTG7MEAs0ftPcoluqkA 9qEUGrgnYxLKkTxKGgoE3v ksARCVroNZTyW7QjleOcKR zuTGEpda8ltKcdHXvjShLg bGVkIHdpdGggdGhlIHBhdG hbmoStK3W2xxLxXG7tJBLE JFJveB5dZPCvMEGhp6MbwA NiuQkaX0RirHCuTeDnz6g0 xWQ5PMImnwNdTIEaxJMkOA Btuy4jCYsvZpVdN1Q7LYVs JAOws56qpWW4llVnFaOfjI w0hPTyBPH7GW3syApbgzVh v0u0eE3cNYKuu8W2SJGwi3 O3IVHmdhFpsJDnbDEpHSVm FI8gxaRaRX17JISzKQyaSJ blAYG1DNK9FGLnxQRil5fn nvuyCx0bAGoiUQ9qZNzgMR 74XEDwFJiyZJWdY2HyM9Y0 ANecQFQaJTKfgENqkF0ttt KhicXatTe3RSSiWBV8zGWv gIjbKIWxTpqfnPE5YJTuMf EcldFkx9CdaPv8zCKbGNzf GDZdcM5oaZ0cOLHnUBOohe NFWhbwJAMdUSkeh4PgSNet cGljWHNhMzAgDQpcZXBpY0 9kw7SLp1Nin2afgSfuk5Ew oTUaUU5pbEPlNB3Ym7ziZD NjzYMjEUH5LRlke1ntALqk ZKZ5WUEeXzKxEVKsQN5MJn KcTKupTUr4NMxdCZm1ZRp3 XN7XCkUkLROpRyz5BuU5Bd JvITa6QQinVB9MAAJ0YVQp JBJdMCfxVAM5BJElIMl4TP IgXFxzcyAzIFxcZmwgXFxu O04slEJmGAobXdUpWTnlgK qwNRJuPAX4MC3MSSPbJoKk L1NXZ7cRWV8tNutenfOzLY GsuzNSReipPFZjIA3DNAAi UQdoUOy1rnUpYYEaGrApBL SlQ10ch4QSv3EcQJ1DQGw3 vlEszrpmpJ7pPDQvlfOgm9 IzMFxlcGljWHNiMzAgDQpT mXOtoS9epfPGGKmrQSDpZ3 VcycRbJFnyPFJswl4ocOxj IGxhYmVsbGVkIHdpdGggdG bxSWUufAbgfdNmB4V6bgEa CN0nTOZIENYkyZ7pQVPzBW CxUKZdBXNtgS6vFSC2h0Ev snXySVAFGGJsjJzuCD86mK BjZWxpYWMgZGlzZWFzZSBh jqIvdvRau46ypaLuk7TzOK 8ltGiwKNoRNAkdQmVzZI0e JNMgcuXyv6WfUL8wVKMorC NiAXLlciefnITtEZu9jNIl MKIyYvLvdEmlk2RiITRpPO jaGS66lgYcJR2kYGteWE1i QKibJY0oMLAgLEMsYCZbAk MbbSPsAcAshRNqVvMiU37f OsLAvQYgh7XiW1ynFP8snZ SvVjxwiKGkODZtaRhxj8Kf uCGbAXKee5TheGCaIJvzMQ 4aYEV5On4ajGAeKYHaceK6 m3TxPQkqCANiPkvjFEQfHP ttc9YtJDHtrQZPd8GwYJ1S XHBhciANClxzYTMwXGVwaW NHw1TwQZMIZwbmeKpfMePr dGOgHaE1HNKjlRUtZBK9GT 6tmZibUYDoDFi6WZbsXKZm P9YrU0XaAWlyXgYbSZmdJA JtXPMnOCkdALTqE0XBCAMc CYN6FjIpETDtOOf7YMblQ3 YOYPGkWFQoUuM5PCF2KnY9 LCc2RERUYj6eXAxxIsKeNN MiVoK5NBo6DyGpYRDbUqLn VVVlCODgKRzkeXCmNI2lzR xnVEWvCTHrGBB8WCXfnIUL s7YbOIOmPZxjHwEbMSRKOZ BGFT5QEbHRUCBkCzXkjZJe RE8ZZYXwbgZdJAdbcZcmiL 9jwTEcQ5unXaBgBhndtGdk TmVzdERvYzEgDQpcbHRycG FyXGxpbjBccmluMFxzYjMw XYBfpCRWj6OnLENBRjHhJZ NpbWVuIEMgaXMgcmVjZWl2 EFDuhI6hPh9daZGogU3evL SrLZoaXGJgw8k8oUW4oLBp hZB5pLUhiYtsGmTfKG1bdV HxRXMXGR38zBDpiySmQVPv sX7uJAByQVScWGB9xdelPX BBKMQ3rPAyi5N7ATuiHCU2 cQ5hnEwzUtDrJ2H7BQMnIM Lxe15ieZU2rrViBcMsLNAa bf8tiZ9vANrmvpCykGsfys Nnt8C7XCAlz3X0ZTCctiAu eGUbvLFmNEWoQkX9VULgQn M1BANmTTQxfRKiUPSuTD8u VGhlIHNwZWNpbWVuIGlzIG HxwHHwwaAzMLPisj42B8ng XBKgjJ7zf0mfZeVnOMSwFU XxwEDthYE3JRHffM8nbR99 kpGyuiKXBS7smLSoKG1ENF NiMFxlcGljWHNiMCANClxw ISKrHAymw7AuNVfuvHaeCC BvElGyHUxJuEjzNGXVD5ls bQKnOQfqWSDIYXhHJ6SFUI 4FKFSgxJIVGLM6II4dLAxz VCHwK0YpY6ZflzA5g2jyhH vqg3AqxUScGM7tdILbAW5C XHBhcmQgDQp9 Disclaimer (test code = [id number]) z7iwwVVxAEWxs7vwSNCzaH FuZzEwMzNcZnRuYmpcdWMx TPjyneOkBHrdq7VrK7AiVi AwMFxhbnNpXGRlZmxhbmcx DGGhJVQ2mdFiSZBwXNprGS HvWCujIn0sbNNcrQiqGhCd FZKso1zkygDIEOvoYpUrA3 79RCWyBQpdb1oru5EnHBZv mDMcr4O8GFXXlunpbUq5iD roS54iq1F1BdspL1fqBAYc WMFuR1FcFN9iNBXnZxv5AH Z0NFZ5UDUxJOQfZ1IaIR0b GGDgqDFfJBi7w5jcwAiiNB QzNDI1j6pqSIarrcOkDE5o kl1efFc1y1duuhJfYBYnYF NrwOOOETFsB5SrxYxaYl5r tGj0zErnHfghZTR7Lhs5EN 2owq43jdg8jKtbKBCozmgw LjD8AGssARYpccppMGc2LH zfSDDupWW3VFCcqGJyL8Lz XDLiPX1kmbj2SGS1UQohXT DpUsO4ARBmcXNwBZTzcDqy OEulo246WHY9JdGgEU8rM8 Rpj8R6qJ9ayMSaWKDiuVUx EpFjIESqfe7vkWZyHGfdj7 SnRZH0eeA5aNByiJEuYXGc HX55Vgtao7AkUdywb8YnH3 8vpAC9LWhqx2zjBL2dKdL0 vcAgJBuru6ecmF6sPcC3XH fwUV9qSH6sVXAjqN3dwxcq XHBnYnJkcmhlYWRccGdicm YuEu5esDvcUQG3JMpfE8ak xX9hRlS4GNsxP5bnzZ5tUJ j5IMaqkZE1VBBcpR4wGG8x csxws8htBPxdIKgmSFHqgh R8eiK2IIMnfNUrP5UwpB6i YMKoMB2cpnwdw3kcCFZ1AJ ghCDRaLID7RkLmWSQrw3Cc iwj2MfJre6EzsPVuBTnkM0 3xg577APLtluVhT5gigCKo iippoMTbdiypLRxosyJ5MY FipcZfo7VfANQkPXK9BSgy LXzlrJSeEWUntKrdx4hkP7 RscGFyXHBsYWluXGYxXGZz MjBcbGFuZzEwMzNcaGljaF fvFYukUwSiJMDdUZxyF5qe AsHdK8BsHKErIuNwnHXgF9 ggVGhpcyByZXBvcnQgbWF5 VUxtC2y9JRCmeuOhsHd5os KdTeEpHYHmTXY2NEiqiOYc JWHzg6AqpqwatWXwZu8wxB TtPMOfhX6lZSDqXJNuCLxa CU5emJc4VFHBwHWusEMfGs EVFJIvDC49arScSIFOgxzl p5T7WTmiKABew2MngZItS0 cgx5JnPSWbv69xUJ8kb4B5 d4wkXOM3JH0bb2YbXBHxkQ UbtJIgECGci0Hbzntkr3Ji HQYwvpZud6CiFCYuibEwvB ZlMUSijhKlak0bvrEeZODz SMJyY8OetjwwaZrqygMtRT Uzdx4mlzNiDRR6VUICOZSw VWTfx4UrcD0jjCCGEHY3eO Yhrk8doaAWjKJbAJZnkr81 XNMdEN0lU0jlXALhESXuag TjfEBdf5EiRTCmuTL7tUQd XA3HWuJSb30qVTKuIOFPaw WyPJLxxQtmfXT9xvJ2gH3j IChGREEpLlx+IFRoZSBGRE ErKF0opaOxo9UlvfPryHcn KMEsjTIdz2UjhXDng4MrrA owz6XikENdlIHxHR0mIOPn clxwYXIgVVRNQiBMYWJvcm G1m9YxCYZaKRLhTXC5xQdg czi9VDOpeB1cRTWuA9caql qqOAljPYKtz5VlyS1khMGQ sXCmm4EhcRLpuQAOmXUqGX 2feeWeSAhDAObRPBG8giAv VJEok6YmXFwqM2kzH47cpK jgeDi5jYW7DZP2sV4qMuq+ IFxwYXJccGFyIEFwcHJvcH PjCSIzxGrcnjXvR7OargRo vN0uvMGytrWeIX7aWK4cA1 Q2oZMlQEWcmnGwu3pbMHey dmUgYmVlbiByZXZpZXdlZC Tde0XuFQjpBEO8LTnhviAa bmNsdWRpbmcgSCZFLCBTcG YknXTtXNR2REyfqtHchpGp QU0gsB1fgTsxpN5oySAbnU V6vndcAAMcNJGxtIzdVMRa ED1ffEfjwP2rUvGnYqZeTT ieCD8bOBAsI9swfPOcSMXq KPSxN6igSvItiM7ioDheSA xjZjJcZnMyMFxwYXJccGFy XHBsYWluXGYxXGZzMjBcbG FuZzEwMzNcaGljaFxmMVxk GdDkGFOfABsfQ4dtAdJlN7 RvGBCkSkJdlLYrP1pqGOhd GUR4DYUxJC7uzMJrVS99wK Wqw1tbRRtzqIunpw7dR86c mGLnPOrxxTehJKUuw65kz3 SjAAIhydXyqt7qNFGqcxY5 pS2tVXXtfIwoBPPfnRTuGE Uaa9HpHDrjsVZezhPtRLcr ZDVmGXNelPFwfiC5kyWzwn OyjxYqFFWriTyiSVTlm5Ja PJOsKJuzo6Lvlt9nxEUyXI XxhkUUjYmlxNWjpE6xE9Wn PBXxEIQgmz4pIZCutM6bLP fbg7SyhudzQIHvPTWhAFHv dpCvyv3fYUOypWZSVT4ZIH jchOHin5KncwRdP4fGOUB8 NUQwNjYwMjgxKSBleGNlcH HzTKAqhl26DKFdfL2vpOke DOLgyJ0tcX7ktTbtkO4xUy RtHyPzMLqhOM5yFWQqY9md xUGvFUDnBHNaJ6hfVsXvxH 9jaFxmMVxjZjJcZnMyMFxw YXJ9fQ== Embedded Images (test code = [id number]) [facility] [id number] 19:23:05* Test Item Value Reference Range Interpretation Comme nts Case Report (test code = [id number]) Surgical Pathology ?Case: [id number] ? Authorizing Provider: ?Dominic Keita MD ? [...] HPylori ? Final Diagnosis (test code = [id number]) w0xfxGCyGYFmb5uwMXJdgV FuZzEwMzNcZnRuYmpcdWMx ZDrynrNhGWtwzVfsCYX5YG GpFZ3dmQilmZg2sFehFPNw waF7yPMpMNdaj3tkTTF6d3 kzhslcIBPbLRcyMr8fmXBm wVksOuBySDEgPCc6mW39YM SvjD3ckKBiOPc7WMUgrWXo ugBsChXrWWImcJIksVY5LP XlQW9vabjiHXamQSkiHODz qmJ1MITgxQUiI8IeUSDaZJ 1fzijtJER8MRxdGWPzDET6 TkJnRJVkh2Acdcd4IkVwrG FyZFxwbGFpblxmczIwXHBh vlVORvCBSY4OAVXATYBWL7 kSGILSKR3LMYSLUvdiiLPg BWOcSYNsGFQEIU9VZSAmR9 bKPvRcIQ5RYDRlOWFebWXr JLPwsaHQHoEUGI8QIL2ZOJ wgQklPUFNZOlxwYXIgICAg JRUkAVrQY9ROPUNxVNBSA2 KDZPrXGThzMw0rRHBUVQ9F C4oOM5DGEGMJAT3AIDxuXN UuHQBjVJUpCT0RRGwlFKWV TL1UJUECBOKUYPxDSGCAPA WMBQgAYVJDK1EEDOqSSDUw oxulQYQbDg5vG7QHCXPTHS wgQklPUFNZOlxwYXIgICAg WJHlXMBDI3MRGeMCDI2KM3 1DMNOXRFHIPO6UZJEWLAjM CA9XQMPSYVMODOALN8UmuJ FyICAgICAgLSBOTyBFVklE LH5BEEHHDyPCOLnLRFHnAK lTRUFTRVxwYXIgICAgICAt KN3XBUhcXNMHQV6RNATMHv dBTklTTVMgSURFTlRJRklF UGOBOGSUIJ9CUk2DUATCSp xwYXJccGFyfXtccnRmMVxz e1RgT2XcElWcQGqgljXcUF ImDfetwjvjKNCeGUW1wcLs MEQiUOneIKOpJLcjZb0yzU VyzUtlDbUsHVYgg0nrzsMP FWqnErCmE646FAEyRXmjp4 rtv2FoBEKemUOer7F5ORGH dtrvaWl6d1lyAsAbIqY5mT EvVSvvR5htpfHlsNYyM1Tz nKBitEe6kRzsC28oi7I2Ye itA7exNNIlRPUdM9IdIW2s LARpMeo8CIH1LWV6GQTiVD PvX9AxVJ8pCLZetDFcCZw3 a7qinAbcADViNAS1e7bmEB rtzhD2TH8tpp0qeRs8c2dj czEgRGVmYXVsdCBQYXJhZ3 GwsKjeAz2ptAc3iTsiHhkj YEH9Vqk8HB3kps21xxt3sY vaERKgsgznMcB6KAdnHMCc sqprMBt2VNjdKMDtwFY4HF TogIUtY6LaDYDnXP1sicd6 PVF0RKhvDDUrRvY6VGWyjA HeVXIyjKknALmqi149BKY5 SnHmKB5cZ3Umc3D6mE9jtD GjPVNspMYfFmMvUUNesi3m zSQdKLbuv5JcMMJ1kiZ8zB WztTXaGSNbBV87Qclaw6Uh TpxcLSK9NJQpluSwr6Miz3 uvWaFjcmQsT4qvI4SlMSCb FLUiRAHdOvFbnpQly8Xse1 WvlPSemTq6i8rzQRAtBEJx lIisd9tjKQH3YDPtM7I9nA Fmk3zjSQggHIBpcDI2noW1 JRSfpCJpH2KaiA7jNRCnNE 7yjkb4p0tjHJG0NOwhETJh IwR0jmN1RAQciSUqMJJnvS pmQQcmw053EPE9WhFwDJFc t7WcM1VanFbcB45ezGdcJ5 1xPRCjoYjouT5fnLqfaA8d ZjBcZnMyNFxxbFxwbGFpbl xmMVxmczIwXGxhbmcxMDMz WKoyR9qcFoHgXXKzkDqkKI zlo1UzWMLlLRHwJbgwqtCo XHBhciBJIGhhdmUgcGVyc2 9uYWxseSByZXZpZXdlZCBh oRdwm6MdL7cvPT8nV6TdcM OswyQqtiZnDPmiDZPox1w3 fTRcbWdzf3LadEQuNB76jc CoYQGdFAQ5ABIaq0jhOH10 dqbmOqNkuD09gaOvuuMrHF Zrj8dvI4rzbSPtn8Yju4Kk plMyNEtcv3WoPC5dzKCnmi vdaKJ9UJAebIYxuiZuobR2 qCrlGVCgyA3psA3htJdsbA 7gYxQdGcFrOSvfEC8uUEIb E3ckkEPlDKYkPYWjO0acEa CtgE2muMwxDhszfdZ7KWTs cn19 Clinical Information (test code = [id number]) Shivani Schuler is a 47 year old female with IDA1. Gastric polyp x 6 r/o adenoma2.Duodenal Bx, r/o Celiac disease 3. Gastric Bx r/o HPylori Gross Description (test code = [id number]) z2pgsOUiATBdtYGVPWC4JE EeKN1qhWcdcCx7yCcjZMTp zxZ6dWAjRAgmh3cxSPH3k0 ibmyLBReqyGTCuKT8cIKdd MCTaUD9fUrYwKFJxMuBeRV BhcGVydzEyMjQwXHBhcGVy jPU9BCCdFE7cyhuwUSmuPW snCABjyrQ7ATUanUWlI6Gi HLNuKB2kqjkvFTT2MZKMMq isWk8okNIjdVfsXcUeApAp YXJzZXQwXGZuaWwgQXJpYW r8oJ2MJmrkVYC0XROMPwcz BcvkgWjxu4BhqFTfUKXvLY xcaWQgNTEwMDAgXFxkYiBP KyDdKcT8Kwl9GEK5KdT2BU i6QABJYVUwXwtsOBU5RiV5 MXy9HFVnLC3fCNvhpMFtCA nvDlgtPLpbI535RWtqUAVv M0JyG3OmRRpuJbHtPSnsTG WrRRDvGEdrWLGaD3LBIWSk KEX6ElPrXOAaCGw0WKqvH3 DFJKNaUVFiFdL6JIUmGjA1 DBu5QIYYAz8pOCepDmBbJN o2TSD0BKp4VdZaAWDpAzHu NQRgIZQpUUuafIZlEV7wwO hiGLJfHE2SLJAePDqzFLSl KnOlF5IGB4lZNB7rOHgfnT JjaFxmczIyXHBhciANClxw DXYpZE3VACTxUUbnWHn8mc HjKFVrUwSfIXBmT29xk2HN h3ZePY4BJGn5mqMkkmlewV 7qQSBbdoBfYPnKiJHbiG5i vyEQBJwdUYCkM1MatwUrPU bfMWBrat2kaSgtSCerDmDo bGVkIHdpdGggdGhlIHBhdG ocvfNvY3Z2reBpDN5wKXAS YJXobK8fZBKyLWBrk0RrzO MsrObsD4JecFOrUaFbm3v2 gTK4YIPycjEwFJEfuWNmDX Fooi8rJPwoXlIdP8J7PDHo KCGhp04kyLV6axFjDtQhgH m5jUDmNTP3ET8ncNdaplOd f1j5uA5lCPJbs9E9IXKbc4 G8ZVPzikNnrSFskQQkCAZc CF5rokSyRO91WJTpBIfbEP zkMDE1TCU3VJSgcOHaq7lh bskpEl3iMHmbJL1bPMcnAU 40MRTfXKuvMFHpM9QjI5A8 SNqlNOKbBEYsgZYcmJ6jzn GjgnTifKg4HNAwZOX4kZAn pZxyUXIkXesomDZ4XBXqPt RqkzEqy2DjmFi8jCSlYCft PDTqxY6fnT4fRXTbCPOsor FGTcejQCOnWMule5KnFDjh cGljWHNhMzAgDQpcZXBpY0 5pf6UAh7Tmi2bmcSkwq5Yk kGIrST0frQNoJN6Iv3yqEA RclGQjNHS8OOoln5fcJHlp QNB6QMUcAzQgGRBdTZ8QCk NyNFjfITc6MOwjFCt3YTq0 IH6NQgXpQSIdPou2GoL0Rm XnYBr5BRysKK6ZUBG0OJNg FCLnMVchSTT0UXLvBZh6BH IgXFxzcyAzIFxcZmwgXFxu R36ydCSuTLhdPiCoJQhtwR bkOUNtGPC3GI4ZTAXtGiHe Y1JMO7fOXV7mTgcfpuGxYN QzajOSEuuxKVBaFT6BWAWo IUoeWQl3ixTgDXSmKbBrOG ZyC75sl2FFj3NsLE8LUUl5 naPqecunpR8pTKFxbaDev7 IzMFxlcGljWHNiMzAgDQpT xPZegB6fdiCDCOfjLFOsY5 KwgnMjKKziTDSnop1ioHti IGxhYmVsbGVkIHdpdGggdG hxPPDoaUplitMxF0U5hmBr TC2gFMXWATUgnR1rBYOtPI GjVRVfVRYxeI4fWNK1u5Kg pkRjTGPADERdvUoiMF67dF BjZWxpYWMgZGlzZWFzZSBh ccWimoSic81zxkXuz6YoHS 8pzEnjPWmGDVplMeWmJN9w JEOgohTqx7YpUS5sKBBpnS YgAVNawzutxUJaTUf5fTSo KUEaTmSqrZwic9TnEQCgOL otYW98mlLxYX9tPOveWG0i PJleXE5tOKNsBCVcEJBrRb ZzpFWuQwSdwTXxVlOoL69f BcZTuYYef2CvK9ukHR4nlR ShNhjkuDHdAOBiaIanh9Gw jROnVGYsb7ImuEDaUVehNP 6oULM8Rb3zzXQuSJEmixP3 v2NjCLocJHCbLamyPXMvRM ufz3PyWVDoyNXQo8JvFZ9Z XHBhciANClxzYTMwXGVwaW PJu6ZxRSCTDgxgdGapPqLu sLBzPmG4ISSbuYTeQGL1JO 4mgIsnYUOrGQm2LZxnLIQh Q1UrU6VlNCnlQlYwHDsmAA GyINBsDEurBFCyS5QXXEQh NCA7IbBdLLImWFr3XJipG6 JYSHTtBKHmLxI3DFP5DmP3 YCr1ZIQZSs5wEKxjEyNvBE FoUuE7NLy1ZoIrKDQcUkEd AXDnHEMnCPeivYCkSW9mkH pyIRVrJMCmWIX4ZMRjjZLR c8KjDTWrKBmbVpMxOGEKDA SRCV2ADdKBBPHiUdIimUWj MX8IZGReauZvGRbcyCzdxU 2eqAVaY8ziEsPyAatelSzq TmVzdERvYzEgDQpcbHRycG FyXGxpbjBccmluMFxzYjMw LBQjzVDWn2VsEBTQTbYfYH NpbWVuIEMgaXMgcmVjZWl2 XTLejE1hQz1ntFAmdK9byX FbCQknBMYoi7a6vOA0pJWj iZA3oGJsrVexByLaTF1xyW SqQPGMLE99bHZdylZtBLBq tA0qUWNvCSHdVDF4gwibVG BONFQ3sFJwq4H2TJndWZI2 pD0iwDsdLsWcT5Y6WGIwTM Nfc26lrXC9fkXsIxKvWIBl lv8wlY7tZWyvmzYbxQllqw Jet3C0LXHgh7C8OWSpyyPc sLDxgIIaWNYoQwZ2JRZfIo R1ENDvQGYvuHLsRPAaDZ3m VGhlIHNwZWNpbWVuIGlzIG XsvMPhgnZeUSFmzt81B4un VMOjyX9sk0bxXxCkPRXoXB HolYLtdJC0NIIakD7vqJ80 kcNonkTUJP6spTMrMZ7KZH NiMFxlcGljWHNiMCANClxw MQFuGIcsr3YiTQipnUzdLC UnQoWySIbAiVgrWZDEO3kt xVVpCAsoDWFYQElQB3NYAB 5ELTGdhQGRELZ1JH6xXRbg VHNqH7QcE5EsfcI6a9inhW tmp9TuuXOzGZ7ueLIgBI9P XHBhcmQgDQp9 Disclaimer (test code = [id number]) x8fgcBNjHYLtt4sdEWTbgA FuZzEwMzNcZnRuYmpcdWMx DIcjcwFaHWtie8OlB3FoAx AwMFxhbnNpXGRlZmxhbmcx VWVoDVO4muWnFGQmPRquVY BzYVnjIc7nkOCzlFpjQoWl OYKdb8flzpJFRVhzCrAsP6 21IYOsQCzou3yom2QbWLSk dOYpw6L0FJYRwctjfDa7sO dyZ06pu6Q2TosjD5duKKPc TKGjU4SeGM3nPHXeOvm8WQ V1NIM1QEOvGZQmC4YvWV1r KKZbbVMzUCd8l4tkyBcrKV ZpDBG6j2rnYGiqkuOzVW3m na1gpXo1k5duvzLsGXMyXH IpgBJBUBHlA3AhpHcfXb8y bOj4oNcjOxbxUEW9Ael3VR 3ujx72dhn2bTlkEITlmaqt ChH4RQopLPUhggbqIIq6IQ ypYADiuAS1CFPxxGIvU6Ps FGUlIL3wkii9SIZ8CYcmFJ TlEhC0PUBrzRZwNBFakPhe PUgmz253JZQ8NwIoTS1cR2 Gfd2F4kU8ohEJaHZEbuELe DqQsTDBzde5ssBXnHAuzv1 HtIHR2fiW5rKSaiSHbMYVe GI56Dalry8SgXrvay6UnP8 0mzPU2MMqjw5ofXK6cBaD9 feXxRNjip9bvsU8kLkX7WV kyWD4iRU2lVAXfnA6frtqh XHBnYnJkcmhlYWRccGdicm KeFv5amBcxCRK0LAylL2lw cR3jCdO3WYzxU1ogqP1fDB v0TNwkoSK4GKCzsS8vPS1n efonm0prEWmrRQwmEYXrvk S0cfI3TEAwwBIfL8DgmC4h GKBfSH0tzajxg2ieUCY2MY lhNSYaXWV9AtRqJRTsn3Ni hud2FbPho4HloZJdCJdaL5 8gr100MSHqmqItI3ulxCUm mvgrtAVdbkzvAFfjfgX5WW GpzwCdk7AwPGNwCLL9POqr UHobiRWkDRHtvXsgc5orJ0 RscGFyXHBsYWluXGYxXGZz MjBcbGFuZzEwMzNcaGljaF tmRLtmMpSzVFJfPOvpZ4xp QyAcS7FmNETqNzNrvFKpO4 ggVGhpcyByZXBvcnQgbWF5 XRueP4o3LRUxduHfqYq0lg UeQfEgRRGqJRD7IKwrxEDh MKDxq7WeccgjfFXjWd9fbK OpTMXowC5sFSYwXBMxFUwu KA1rwXu9AAXHlLScuLTyDd DBAFTzQT61kfNsFSGLgnlr s0P3SUziXWLqh1QqaYCfH6 lcf5IvGLMnt94kFL7qe7Y2 o1vzFKQ2OG6ao2ApWQYehW TiaPYuJPLfo8Meiouui4Cp IOCwnuKzn6CjLQXmalGclL NlVCJplvXabz6yruTrIJVk ICNbV3FnssvllNpqcqDsDO Dhou7ubxSpPKB9HYMJAPPr YWYmn5GclP9ugUAFDSS5wK Kzie3llyPBrHVoXWDzlh93 EVFvNE4eU9xxGQWdVUUqcg ZxnXUzs2JlDARkzGX4lCVo FK7IVhTEz90rVZDyTXUKfa HbUIVecNxlsDI4iuG8yF4e IChGREEpLlx+IFRoZSBGRE HaMY2fhtUzd9PzzlJnrTfd YGQuhEHgk2DqdATrx3HabK bqw2RuzYCiqOXoFG3fXRCa clxwYXIgVVRNQiBMYWJvcm Q9q4XyUCCmTQVpMJF9tVzy krv0ZVVipJ1eRCSeK2suqb zrGKzjWEWgi3GvaJ0nlLEG pXEfv8AgpPRwoSAOsLMgCP 4uszMpSVfGZTnPDJB8auKg SHOmk9YzHGfrZ7juO65fjV djaIc2bZI8GFB4nL3vJdp+ IFxwYXJccGFyIEFwcHJvcH JlSCBfhNxwhdNbB9LdkoNk oY3azPWpafWaFT2aQN8eC9 F8lNNyPUBmysGlb1btXVlq dmUgYmVlbiByZXZpZXdlZC Gkg7RiJNbcNGM4WFugdiNh bmNsdWRpbmcgSCZFLCBTcG SpuNDyPIM2NKcluyRnitZy WJ5guV9fqYyksL5plZBfsL I7kvkoAGMoOTOeyRegEPBp CS8yqJahlS4pTyXsUkAsQG edEF3gDARgQ1izoKZuPHRl UISbW5huXhKmiQ2khOdpZX xjZjJcZnMyMFxwYXJccGFy XHBsYWluXGYxXGZzMjBcbG FuZzEwMzNcaGljaFxmMVxk HjAuQCEdFEraL0cuBmLkY6 JjYJFhPfUaoISqS8goWCka EFO4IWIgPM3epRVlPE21iY Dhl4piSOrzvPnwhw4cK69e yIOnFLxowHqpGOIba20wi4 ZyAHUlbtJznb5sUEDdyfV6 eX0pBTJdoOcoHUIivIRyDN Tzc9ZbIVxzkVGskeMiVOil PUOlFTQffVDuomU3jbGykb XdnlUtJNBxgLpuPQTyu1Vk NSXlOOjeg4Itxh6htEHpRS MnpjSHxDmpwLOsgP2vQ9Nq LFUqDDNvpq8xSNPnwU5xOF gvw6NvjqsyOJZbMTKcKYYl wuEfbm2oMCMqhSDVBZ0FDY odvUUpj1YzlePzG1kGHPS5 NUQwNjYwMjgxKSBleGNlcH EgFJDjrx64OBKxmH3acFia AYUcpE3lvK6ffOsxuK2tTt DeAqRdTIuhZQ6kLKBhH8jm cDCyAKHdWAUcM2kdCuBpzO 9jaFxmMVxjZjJcZnMyMFxw YXJ9fQ== Embedded Images (test code = [id number]) [facility] [id number] 19:23:05* Test Item Value Reference Range Interpretation Comme nts Case Report (test code = [id number]) Surgical Pathology ?Case: [id number] ? Authorizing Provider: ?Dominic Keita MD ? [...] HPylori ? Final Diagnosis (test code = [id number]) [id number] FuZzEwMzNcZnRuYmpcdWMx WCxymbVsSIikvOsuTWA6BR NpSF3njOlxxEl1hTkqICLu gdD2fNKwLIqqq1weSGK4b3 kjwhkoAKXgWXplGl9dtFYc sYagAaNhPESwTEh9aW80DL XonP7jsJZxXAd9NTNktKRh guBpZuAzDCZywNDxpRT6AN JgUE9yryafSCypLAhmLIPk fmH5NFBuhKBcL2BkDSJxJM 6muqzxZHV4LFkkMHBrJXL6 GbFuBICsf2Akybj3EfLloO FyZFxwbGFpblxmczIwXHBh maCSCuTXYK3IPQFJYZBMY8 fFYSRPSK2VNIPTGotgmQAo HBBiHEThGJUYSU3ALQPwP4 gLWpDhJO5GHXMuMJWynRNo UXCczuHORaEQYE5ZGM4PJA wgQklPUFNZOlxwYXIgICAg BLMyQXjKV2GJPDQrEMSJM5 IZAVzMWDpfXz4yKBBGZN9B M3uQK7YQYISXKS4ZSJfpWC VdXIBmWBGpKJ7GDBcpTZBR DT7ACHGTSEWTZYhSMRJGVS ATAQqGFDTMN1WPAKdDOFUj dvldQAKhUs0cC2HSYCARDH wgQklPUFNZOlxwYXIgICAg HLHbCQBLO4QYDgVWTU6UI3 8JIZUOSTKVNL9YXRDDGVtQ DB5WFZVGSXUKEBMJQ6FmyE FyICAgICAgLSBOTyBFVklE HG3HBYDOYyALIVxUQWMqSN lTRUFTRVxwYXIgICAgICAt BO5VNTctRWWHVT3DAXCFVd dBTklTTVMgSURFTlRJRklF CRWQDTVDVT1CJh7QYWQSSn xwYXJccGFyfXtccnRmMVxz r8RvW1XzLmAeRMmaghXdEY MlRkntmhbdLJVpCEA6wtWr RNDlAMkzSJMyLXisLn4crR BrsAcoHbCiOFXwg5skrvYN QNefZtIcO085HDRkVNgns1 gbm3PfRQPhgQWgf2H5TAVV xlxkrLu5f7kpJnIdCcQ0nQ YxPOuiX8vodmBgiUZtJ8Uv gPBklOm7hSbkH09bc4Y6Ik xgG6pdQLMpMPMzI2DkTO6o NZYgXws8ZCJ9QGX2VCMyFN HxP3SoIK1yMZTovDGxVLk6 w2tjlPdxOZQfBQS1a2pcHV ysyqL9RO0yaf7myOk6f8hf czEgRGVmYXVsdCBQYXJhZ3 IoiXwxNw0ayIo6fIkjErhq ELQ4Ihl4VK0qav32pjo8eI dlQYYjbvlhXfK2GMqjAVTp smmnUAi6SSjlVCFbdUB2VI BwsEVgR9GfDSDkPG7bcff1 OIM5CLosDNNqTaD3OSYerM DhIREtnEgdSBdjv044GMQ9 PfJzBM5hD6Qme5Z1eI5jvY WoXHUaeNAwEyYoQCGejm0l pEObEZhga7OzLGU6alE1fV FetAMnUFBxNG98Oulki4Vv QlxwOCP1UZIufiXuo7Qcv3 daZnXexxSzR5tbG3MbUYAr AUFzIUBwDuWmvyYep5Qwk8 EwzDOwpTw0v9cmWGFkKXGk wMyns4jrCLY0CMQmY2P2gA Nzu6lpMUljFOWuwKU9xcR4 YHEiuMPlE0YbbH3pQFKsQY 5nmda2a9btRVS8QPypHYQd SkG4ilL6QCVuaPOhMHHzdR dfVXqfa824ADD3IvFoHHSp k7AtX7NxzTurJ54liPjaA7 1zTCQorJbrwP9bnOqgaQ2k ZjBcZnMyNFxxbFxwbGFpbl xmMVxmczIwXGxhbmcxMDMz WVeeG0gwEbPlDJLynWubLF yvr3YnALUgFWAdHzkoxuSg XHBhciBJIGhhdmUgcGVyc2 9uYWxseSByZXZpZXdlZCBh gMezh5EdW9xlVZ5lP7VhiU FipmGmtaJyIYblVYKmg0j7 rYYjbYobb7CqeYWtCB38qy OnVFBuCSP9HQCyp0afHR26 mpulGhYekD13bzXmasXaEF Xqi9uvR7raoOTbi2Mhy2Gf suKuWQpwo7JzGJ1dpOUtra yuaTH2ZZImeCBmrsMumxB4 gOdfILHqxU1tcF6wwEsxjW 6pItBiYxNjGOnaDH5sFTVr I6jzzUCgWROsZZNxD1ffDf UnhU0yyJfoDbwdxmD6RBGq cn19 Clinical Information (test code = [id number]) Shivani Schuler is a 47 year old female with IDA1. Gastric polyp x 6 r/o adenoma2.Duodenal Bx, r/o Celiac disease 3. Gastric Bx r/o HPylori Gross Description (test code = [id number]) o7cieIQgXKZjbVAWIZM4VO MdDT4tkXvtvMq7tXhgXNHg muP9kOEeADqpz5rlIBJ9e1 fjkqMIKviuNINiHP8nNAoi VWZpBK8iOqUiYRTmEaRjIV BhcGVydzEyMjQwXHBhcGVy fWX3UWTlNS5orayiNVswHR buEWUjvzQ7YFNhaLZsC1Mf FZDrJU2mjvdkUIO8OZEQLv wyHs0bxTZwcYvdSqWjLxUm YXJzZXQwXGZuaWwgQXJpYW b4dZ8NKdxwPTK1ZEAPIhyx MrercHrvm3LbqHWsIUVvUO xcaWQgNTEwMDAgXFxkYiBP KpOyNkW0Ozq6PIU2DfZ1GN q7HHHENACpUmggOXK3BvC8 SMj9CNFgQH0uFHvtcIShQD lnWckcYNutI521XHwjMDBo Y2YuS7BtKKhmSaEmFShfTP MqNFAoLYpyQQNxW1SVZZLu ZUK4UkYyIJKtVVp9GOqjQ8 YHFYEgCIHfHvA7XUYcSjD7 QJy9PUBDUo9wNEhwIxVnSW a5NWS7JSn6VtSzLPCmEbNe MSYbCHVyNIffhEFjNL3jgJ tvSNMtKY5NVFDpDCbcJGQi RpSwC8AZY3tWJQ7gSTzdpL JjaFxmczIyXHBhciANClxw WCOsJN7WOBZlHCuzIDs8ku KdXSSuDjGgGXNaC08sm3ZA h9WcYW0VXRp5mzLgeiodjF 2jNMDygtIdDDrOkIXxbU2b ezVUXNqnXSNxE0PwuaCdRS fsDKBqct0lpZdqWSqyDxTn bGVkIHdpdGggdGhlIHBhdG izwgMpT0F0gaZsZX7yWMNR GHXiwJ6lPNZiPZYrb5BbhN HseWfmX7JgwQZtDsBbe4p5 aLM1LXFjcnHjLGIkfRSpCS Cfhx6fTFhmLzAfJ9H8WMNv LBBin33iyBG6ltHlMwFvuT d9yPLrJCS5GF4mfSwqclCr c5f8iS8rYUKjq1R6FDDvh6 R5OOZmxgDnoJWxiIScEJEd VF8sptUaQQ38YLTkRJtaHF ceGBV8OXO4ZZLylSAay6rm dwfdDj7cKNbpZG1dPPebTO 12OJOyDJzbOMJlD5ReG3Z2 AIjnOMTcVGUdvHUgeU3ecj OeneHzrAb5AHPgOKC8kUBf wNfxWOZeHcfhbTY9GHQlKw YldvHff1KowAg5rLOgWYpi SRSiwW0tsE3zNTNfLGOqah ETKkxdXCPnAFiac5UyLYbv cGljWHNhMzAgDQpcZXBpY0 0bh4NVs4Nvr7oktIkxv8Fe fWLxWH8zsTKpRO8Gp9twMW BnaSUcCCE9YJrgg3mzWAwo TJY8UURsEgOhWLDnVT7KJi HmYRhyFKw5WTvqQYl4WLq8 YW9PVlOjBWCcHjs8ChZ1Ez NsEEz2VTdzFB8KLRX1MVVu PJFgTVboBRJ1GNWkQMd8QM IgXFxzcyAzIFxcZmwgXFxu A80ckHYvJTywWxEoCGkupV xdVAEmBTF8XA5CEPTmQzTq E4SRV7qZEA1uBqbcmbAsUW UjvgAVOfwvYEKgGS7MHCPv PSrwFWc6wzMqNIUrToHlVT ZkD46zt7BVt0EiZV2MEKp5 lyErjottlD6uKCHmdqIvd9 IzMFxlcGljWHNiMzAgDQpT gIUptB0zwjWJFPbaVEGlK0 UfayWcCBqpLRXwll2daMbd IGxhYmVsbGVkIHdpdGggdG stEXDsnFwtxqTjX0J9ipMn RQ8aBWLHMGYmrS3pFQLbFY FwCZDcRGTagL6gCNL7q3Jw trBcHLVMUOFfyXanCT51wB BjZWxpYWMgZGlzZWFzZSBh jeBfnwZfs86dffZtn9KlRX 7glBrtAJqNVBujTtBxGG2q MSEablZio4MlLM4aGDQwbF KhUJMtlesgpFGjCRh8zXSt NYCtAcZjaDtmq7RbJYQtOV zfXK14bzGcCC1mCYrhTQ6g QBemYE7dXQDqPWZdMQOeRe AhaRVfUnEqqTPvCpDuX05n ZgZSpLIsy9TcY5ybMR4uqS RaCikusHAwTRQtrVbsw1Jw pLFqUJOsr2DbxSWuHTbpRC 6gLDX4Kr9ndITvOHKdsrN5 d5SvGFuoVMUfHrweXRLeQL ars8VbYXFrbOHEy0RyVV0M XHBhciANClxzYTMwXGVwaW QZl2VjBJXANsroaNtjYiMo zTXdPnT5PRMebDEtGGL4SF 6drPwqVNXmRAd2KTdsZSRm U8YmI0UsGZxcSmMjZIkyHW BrJSJxPXwiGLDdN7BMHXMk WWH2VhItLLEpVTl3CMuaS9 ZDCTFfSXVpBdZ1NQI8RvK2 ALb9VXTDOj3sZUzuLuPbAU DoKfD8XFu1ImJjHFCkRnZv KTGnUBVwGQseyXAuPL7gwW igXLQjLPGjNEB9KUVcdHCY t0EiSREmCAdfImFlSWZSXI NGNW2NFpCTBYCyQbYvxFNm NS0EYPMpdiFzXGwwaPnxtN 2owGFaO6bbVmBsSwxguYgt TmVzdERvYzEgDQpcbHRycG FyXGxpbjBccmluMFxzYjMw GPIsyRDNz9KoYHWRQkNpXG NpbWVuIEMgaXMgcmVjZWl2 WKVtnM7sOp4bbVUgtG3iqH BkYEwrMVPha1b4pJQ8jWBn iAH2xIVelFuxDbGaDL8nyP XmKZJGUH55tHNusiXbYKFu bV8wPVChQAMbYLX3iteiOG RXKVO7dYXoi8H8VUiuNVD4 vI0ixGjbRuViF5E7RWPsZY Ifd53kfJD9lfWsNsZpEQTq la5lpG9oELxtwbTqoSjkuw Hug6H6VVVbv5R4ISCgbcMn fOMjoIAbSCVlMdJ6QGYlTx H4OGVhZDNvjGFoVXXbNY5w VGhlIHNwZWNpbWVuIGlzIG BfuGZgzzImWWUtce42L1is HIAllP4fq3oyVyObGNGqDX EthGFunLU2FMIstP2ccM63 ieKpagSXVX9vtCOnWK9DKN NiMFxlcGljWHNiMCANClxw BDWzHLiqw9VvPAvwpGwuXG RnIuCtBWtMfEqzSUXJT2yi iJIeJTwoYSGLSMxUG0YYCB 2LYVFvcVBYEPV0DO9oURkp ASYjU2CiX9RihyG3k8gimL rev5XgfIGaBC6gxNPpRV8D XHBhcmQgDQp9 Disclaimer (test code = [id number]) w7teuSAdPNZxm3vrVGKquS FuZzEwMzNcZnRuYmpcdWMx AVausaAhXVauy5UdG3DoVm AwMFxhbnNpXGRlZmxhbmcx KNWcMZF3ozIoYOCdSTesJU YuBCnlBr5biOPrxBgpYzRx KGEbe6jjptNVQNzvYyNjV5 14OSGuQUbmo3wki8XiNZUx cWTvq0C4MLCTxhkstRz6zJ meU88om1H3HptzM3lhDRBn ZFUvR0JbWV6fQPKuPyl8TA X9SNP5QEIsIYQhD2SfEV5i LNYzjKWcMJy0v7wpeNrzIP UuQLM7n3osVGqefqJmGX1w wi7jdYk8l0qbhlOhQWMbMG WcyEOQGEHsK9VqrAkxPp9e xSa6nDrdUbitIYP7Zok8VP 9ckl87wfj8fWdrXSRdubfc LjX6MUbjSMDigsjpBPj4ED hwOILdsMC3EBNmhIQeJ7Dn XCPlTL5ejit6NXA4JHnxND GhQzY3DAZjfGVvMWHzjBvx CZjzr676ASW9DgEdZG7dA2 Goc4P4tV7slGLeKSWmdZNd XjPlFAJnpy3gsDYhSAbak4 BfJLL7mkL8eYPajHFmTXDm PB92Zkblq9DhHdflk0FdV9 0vyGL8AKptc9dyTV5wTkZ1 mmVjIDtxh9yknX9nQcR2RN gpCB6yCU9jKKHztY8mypgs XHBnYnJkcmhlYWRccGdicm RwPx1iuIbxZHL3PQkoE3hp rY5tKzC2TLwyR7fxrN7cMM v3AUpubOZ0ILUxfX5aFW8y tipts5tmHNzwDThpDLUywb V4gcO1DJQopSOiU2DmvI6m DLApTB1rndvxz9vxJCR3FC ayAQSpKVI4VaPlNULvy7Aw frv2UaJdn3XqzXOkWCuhM5 5cx561BNKiywBcS3frcDWv mcixsRCzqykrYHbplhX0JY DuocDuy9ZiQUEnUVJ7MDhj ILvowXHeHCKgsXpig6baA5 RscGFyXHBsYWluXGYxXGZz MjBcbGFuZzEwMzNcaGljaF tpBVmoTjTgJIQzFAkyU7su KoXpA2OnHSGvGiXcgAOjP9 ggVGhpcyByZXBvcnQgbWF5 IBmvY7k0KXOpopYtmPn9zn JuHySmKXJxLEO3VIsohWHk EUHng1NkjtvuuSTxPt5lrZ ZbWHEulQ1rGBGbKYDoVPqx BB5juYr4NSTLrQTzvJGbAw VOCHYoVT94zmRmIOEUwvlg f4T1FWnpBFCaz6BltAOyZ9 hxh3MaXAVff99pDD3bb3D4 a8tuSMQ3EE0au4LwTBZbcS HaeVZyKPXrj7Ecckoyb0Ox TJMjcbJxf5IlKOYtybGjnQ KeKEThzoNtiv2rfsPbPJOu LGYwK1YugxfmsAivksQcIG Uofe4rkpWeIRB8ZRUZGNHx GRIiz3XkkD7mtTJKQVJ0lF Vtwy8qowRUwYInIEIrgn42 NUFxKB7gZ3woNYMyZZCdgg IxkZZnc1GhIHIecZN2uGGh AM4MJiLZo10nRJHbMGNVxz XrKMUqbZvoeFQ3ykA9jR8c IChGREEpLlx+IFRoZSBGRE XhAM0xawVwi5YeqnLmpGwy KSJwoVRot1RttNJyi9OqlF qas0DtoVZqeMTsII3vKKTs clxwYXIgVVRNQiBMYWJvcm K9q0CzCJAjFKDtTOX2xRtn xnv3TZQqhP7nWZIhO3htef mdDIagYMNgc4UncG9ceJXS eVRer8BhxXHlqRLAwYZdWZ 5hreNkZKtKZHgWJGA8hsHm LBWqv7FyZNjmC6xuO51mvQ xwvAr5vKV2IOC0wF0aLup+ IFxwYXJccGFyIEFwcHJvcH EiYKAcvKjuogRkV1XlnoEc cF9rzDMberCwCJ1rDL0rS2 P1yBOvCMYrvzDhf5dwWOrj dmUgYmVlbiByZXZpZXdlZC Mpd1FfFCdmJGA7CIozixKl bmNsdWRpbmcgSCZFLCBTcG OugIHhHZE2SMxyciIdcfNk JA5wpI4eeVhgkS7xoUYpnD Z4jyqtURZpARHzrUucGUUm KD3zcPsciF9zHvUgKzAmNB iyRI2hHRVfI4hdtDCiDRXx TDGxU0uhHxDmkV3hoUfaZM xjZjJcZnMyMFxwYXJccGFy XHBsYWluXGYxXGZzMjBcbG FuZzEwMzNcaGljaFxmMVxk BvRoQOYrIYvsV7pnKvMiB8 YhEDRtVdUvtNYdV9auFIze UKQ6MENnEH6hwADfPT78hC Lyv4kjNBsnvGeplz0cL02e cVGwEYlpmTjeYMJgs26yj4 BwHVKkquCjli5yBHNyuaO4 gQ6aBCYpiNytIWMkaRIeTM Dyo7XzLIzsfOSjrzDpCZse BEHeETHdfQObjgN3ulKrjn CttvCzTJVvoTdkTULga2Aj ZQMcXLnww8Elib3zlFPmCQ AijbTYnXtvyYNzoB8eE7Lj PANbTEJzbo8rRLSfcC6gQB bwu4KiuwxyYUSkPJLiSSEw tzFbts2zBQYpvQAMZA4CVJ jrfBVhz1MkzkRxU7dSGBC2 NUQwNjYwMjgxKSBleGNlcH NgWYHlsr68YIBgfF6eiXpd YUXvhK4bpZ1bfNhgvC4fYd NqIlImYOtzVF7aVHIaS7nw pOHgCKTjFEXxQ4qhEjSumZ 9jaFxmMVxjZjJcZnMyMFxw YXJ9fQ== Embedded Images (test code = [id number]) [facility] [id number] 19:23:05* Test Item Value Reference Range Interpretation Comme nts Case Report (test code = [id number]) Surgical Pathology ?Case: [id number] ? Authorizing Provider: ?Dominic Keita MD ? [...] HPylori ? Final Diagnosis (test code = [id number]) n2zipAQxMTQqu7awUMFquW FuZzEwMzNcZnRuYmpcdWMx QPldilQqTQbmwVnpQSJ9GZ SwLZ8vzSiblIm1jBrkMMEa brS1wSGwVLsqi2slPZA1n9 qquxwfNEClGIwoEt9siNFi fPufTdOjUGLyLZe9kZ16UK EjaG7rmNPwLHr7IXXfnTZa dcOyIwOsFGRwxPIurCF7TX LtIG5kakcyMNmjMWwhPNUx yuA3VAHtbQHqD2AkZJKwDH 5hjksoQCT4PPaiVJTvRXB6 BsPpZBVwg4Fcblk8BrAsnO FyZFxwbGFpblxmczIwXHBh ayPBRlOULJ4FWFAACNOTP0 nBEBSEEO7VDQGALjudyWRn KQAdVVBvJTCOUQ7ULVYvD2 oKKoStPJ5VDIVqNTBmjZXt MKXsjjKTKuCRPN5EBH5EJX wgQklPUFNZOlxwYXIgICAg DAYxPUjUW2QRQBGrMHVOM0 POFPmVSHwoHp9mJLNYXM5J N0zHI2BSEWJQPZ4SBEkiIH QeKTSvMHPlVD1XAXxkYJIH HM0XBQXGQXZNBOuLDZCBUX AUHAqKBSKLY8FKVUtALQUb kvwxQDSaPu6iE0TLVKJVPI wgQklPUFNZOlxwYXIgICAg XHWvJTDRW1QCExHNSC3UM7 7VZGPROSFGRM3TLZSJTTpM DC8SLNRUZLGYQPBKN8OraG FyICAgICAgLSBOTyBFVklE IO2LRPBTKlCGRAuZPYTiCN lTRUFTRVxwYXIgICAgICAt LL4HWDztLFOLOA7WGECDWu dBTklTTVMgSURFTlRJRklF JDMZDARNDE7PBx4BTPMZPb xwYXJccGFyfXtccnRmMVxz s0AtQ2GvRlWeLBrtaoZsAU KxNlfbzmwaYYZcAQW7ftAb TRPaNOwdUZKcZMeyQb4duN VapXmoKhCyQFLuc7zvorTF XNzpBpAnJ827XYVmGUshg7 nry7YqEWXedNTxg7T1YFXQ plvgoTj6t0ziBoNiXoA0bY VxTCuuS6wfdgSlfGXsU3Cf bGHwcZl6sQasJ61ih9K5Xa uvB7jxIMZiUQXtH9GxOJ6f EQXpRpk0AAH2OCX3REAyNW QeV2YtGH4jHHGefXHvZFs5 r7qjqIwqWWZbJUS9y8mpDM qgajU2SN2yhd5ttGe9z9wk czEgRGVmYXVsdCBQYXJhZ3 KztJcoEn6clYd4dTedOlra VAL8Rnv2IL3hgs51msc0rO hqTBMhmgjrBqX4KWrfVKHv acdsGKi7TLplVXZuyOT5UX OifKKzV8OsWRCbZL3zcnn6 MRR6DUpnAJDbHrS5FBLibQ FyYLTqcHvwVAehd275PCH4 WgPsDO5sK5Lwo4G5jX5unK QlJWKrvPXpFoNzWNDdxs5d nQViRXvif2FzMTD3raE8xX GfzARsEUPxCA67Nwolj7Qe BtucVXZ1ZCEqlkThx1Bec4 odEzQnbgHlQ1zhZ9JpSWJi JKFwAAYpPlQzrbRpb1Cvn8 VdoIPulWu1j0rnUDJrIASj pKltc7jhASC7MLUwZ0U4qB Czd8tiOEymXAGxkUX5lpL3 AJFvfNKoN5HpdX3aCQEmSW 4skwk2d8rdWWO4OOifESDv ZrH6oeK1AZXmmOFxPLUuoI xsQHssq495TYO6SjAcTIGi z3KxM3KywDguW38izCcwJ2 9dSKQmhCbyoW4xdYhclE1m ZjBcZnMyNFxxbFxwbGFpbl xmMVxmczIwXGxhbmcxMDMz WHmjV9qvMzDmUBHkkJmlHL bmt3UeBAQbOYUtUrhoklKt XHBhciBJIGhhdmUgcGVyc2 9uYWxseSByZXZpZXdlZCBh vScne8ZgR8zfHA0uL9JteU TvfwKacqNrSXzgHNSvt2e9 uYKroNuef2CkpGVbBX55mq MkGBNhDIW5BZUda9fvRB01 orveJaPdhF44vgCjxqPlPA Rzj7jzZ6uubADlr2Aon6Mc nmXgJPiql9DaHO5aeMNjam nvqVH5SCIzfADfdhWyrjA1 cTmbVXBvcN3evG0bkXjqnT 6cDkIvPcCaUBhjSK9aUSVt O0mnpSFbTXKxIQNiB8kzTk QcvO6wjYuwVqjyhrF8UDCi cn19 Clinical Information (test code = [id number]) Shivani Schuler is a 47 year old female with IDA1. Gastric polyp x 6 r/o adenoma2.Duodenal Bx, r/o Celiac disease 3. Gastric Bx r/o HPylori Gross Description (test code = [id number]) u7ismFYrFTIiuZAYXCH8IT UyQP7cnXnymPt5lAshSWMa waC2uLWwVJmsm9emIIU0n6 lfrwYFIasmDEWoXC5sOEcq ICLrXL4dQuIhIENkCpMeNT BhcGVydzEyMjQwXHBhcGVy qYK3AFVnHR1uqvndCGfpLH xdZDDiptP6DRNlpGTjY7Sn LXRcFF9xamcdSZW4KPUTGd vlTu0yeAXmnPtrKsKfJfTh YXJzZXQwXGZuaWwgQXJpYW h6mO6NGpugNNY9JMLULerv BsvfqXejj7GdrONhRPEnZD xcaWQgNTEwMDAgXFxkYiBP VaSlSiT7Pzc0OAJ8CoZ4NH w6YYASPVJqQdtiGTR7YyA2 HCt3YMMhCQ0rGJsljRJoOZ xqKlmxMOdjS415CPqmIMOr U1FjP2XlJZbfTsXxLUioUV JlAKCeWJpgYOGuL2GWGHLj WBA6TqJjGPMuMIp0JVuwW6 DOFZTvDTPwKvR0VIVfWpS2 NEf3YLCFNx6tBSqdUuDlZH i5FBR1HRk5FjYjMEOqQhOl DBRbOUNcLWxxxETiYP1yiS xcUCLbEX5MSDIaQHblWATe DiGnV0KVR9iCPN2aCYqjtZ JjaFxmczIyXHBhciANClxw LVTdWJ2CGMQdRVnlYCn3lf XyGXRfBzCgILBnA12iz6LG o3DjGC7EKMx8wpGpdpuviG 7hYSWrfmChUBnGeNUjoV9e ilRGRSfiPRSoL6LbqkDoEZ myWKRyzw7upRzyXDyvCkKi bGVkIHdpdGggdGhlIHBhdG wmjkWsS2C6veVkXO6mJTKU BBBugG1mKVOxBOOgt8TrsQ MruZekT5SisIFuKcAqc0l3 sJT4POSvjtNoAVBhxZVwBA Xokf0nOHfdZxWvF9W2BVRh DIKsq07shZJ2xbNuCpLchF q4zVFhWEZ8QA1piVdijuDf m3q8xR7qJHYxd3H0VQPiq7 A2MANnywXahBCmkZStZRAd UX7bmsCoNL30KPAhHVbzDN gdIWM9GQJ3DJSsjSUns7tb bsayOt5vUIqcAX8zKGyhDB 32MMGsPRvgVHFuN6CqC9N1 NRbrQISxNEXjiCAevC1wlr MbwaFkiBi2UUQdMPO7jJGq fFenGXAjTrbrmMF2YBYrRr QjjbFsd1EusDl7dLMbQEss KKRngF5ozA6mJDPqYFOrhm JQAdwiCRQxRZjcs9YrBZdp cGljWHNhMzAgDQpcZXBpY0 8pf4TTv3Npi3uqvTxbo8Gt bCJbGS0iqBXmME4Sl9sgTD YcwCBnLFS8NUpko6ssOWla IHE5JEHpCgDsRDTvWV4WNn JmHPddXBu1EYjdLXp0XHm5 YX8LMrRhEBQaIfn2PqM5Fz ItMVe7XMwiWP8ZNZR6XIBg VVDgNQreZVY0LXJgBHk5TF IgXFxzcyAzIFxcZmwgXFxu G12reUGuVGgzJcShAFcmyQ glMLNcPQP8GB9RIZHbHvRx G2XVH6fDMC4zUnegvmNgDW RmfuCKByhxTWMwWW8XIHWh AXvzTTz4mvFtVDJeJkRiEL SfO40fo8WWg5WbBW9MURo6 nbJkxrecfA2yOKYrzaTjz8 IzMFxlcGljWHNiMzAgDQpT nDQmdO6iuwQHKBkoYOVqW2 BqwlQaXPyrJJOcox6noFbd IGxhYmVsbGVkIHdpdGggdG kzLJBbmKxnsdQjG9U1qhYf LX0dFWHQSYVcbM2hZNIfDC CwXTCdHXWcyU2qOQM9t0Rb yfJkPBVAFBDifCmtRJ51cG BjZWxpYWMgZGlzZWFzZSBh fiQkjjDns24xykAue1WvQW 2tvFdqHMmEODbkKiErWQ8c IFHpcvVwc5IlVC7bMAAxzC TjKPEnjgyauPMaZOo7sOQb SEMvFlBbrUnov4ZfCJNeSP cwWQ02roHkDX5vJEiwEJ1x TWeqTQ8nCCOsDXSaIAClUc HecUWlZsVymHXgWeGvF56d NyTYyBJce6ZiE1gwUT8jlC GfGsgnfSRaXBKrbDvtw9Dy kYSvNNAwb9HqoXTaNSefJJ 5tPPI2Wq5xdZEeASKqzaV1 p9YiBCnoTGVcQjyxENItXL zig6CtPEVilHSLz5NfVB1F XHBhciANClxzYTMwXGVwaW RTw2QbOVFOUmjsjSvpIpOd dNHsQzX1WGEdqKYwBZF3RE 3awDnkROAbVWa0NXdwMLPd W6PkT4CdKEjpFfJcQYixSB WuXFEsKWvrLRBdH4BYITYf NNO7YnVqZTLcMRg0UGmoR6 ALAZGcWLHxNoQ3QJP1DtJ1 DSv9UOMLFx2mCTjdNbPqAZ NbHeJ0UQw8SeBqPVEhHyZt ZILwUDQmTIkajNHbAO2suC wsHRIwPHUtXRI8XBCwiOKK w3SlWYZfNSskMhAeOULPUF LYSB9JHcZIFXTgMmGcpYAu TD8OUFFzccEzGUdyvRecjI 2ztNHzZ7ngLfXdZzgaaYsx TmVzdERvYzEgDQpcbHRycG FyXGxpbjBccmluMFxzYjMw BTBscDSEh4GeCNOUXcYyDF NpbWVuIEMgaXMgcmVjZWl2 GTHakF2nAw7deLUqjD2fyV AdUUzbZREqr5b1sJG8dFUq rFZ9bNGyqTngEjUcMA3jkC ArXEPXQU05sZWejaYwNAAb eW1dFMTjOJZuDIZ0axijJY HADFN9yXWcp5N2IFtzOFV8 uF2xxTeaZoGnC2T4RJLpOI Qow36keIO7yySsTyLySLIk aw5ecS1qTAnczlOezQsdqj Hvr6I0FEHoj9P7HPPilvIj qHWzlSAaWCRlYmV0TALyPx V9WLOnDJIbrLVuOUFpDG6w VGhlIHNwZWNpbWVuIGlzIG InoFApluUgDCYxab49Q0hs YKVhbX4vi2pfTfJqNNMgCP DdkOMnzUF0PWLaxG6idH04 ycLmefHWWY4zaJQbHQ2QBU NiMFxlcGljWHNiMCANClxw QUMnSGauf2TqXNhbjSglES MsVwKeQFbUaGxlVSSAR6ip rQVbXTkoLZBUDKhVX6CASD 3TEGOrvUVHCPY2DC6rQKsj DOAyX8PiH6PikoQ0i1eebT zwl5MfxHKwZB0zzQVkRH8K XHBhcmQgDQp9 Disclaimer (test code = [id number]) t2tecYYqXUSyg9tzFEEtpD FuZzEwMzNcZnRuYmpcdWMx FWcxytCdJRlud3LsI4TpVf AwMFxhbnNpXGRlZmxhbmcx IGEhMNJ9uaUbSOWlERodLE JuKOagFx9ecSAgpPnoSyZk ZIPfu1jcgoFVOFfkSpOgY2 82PLHnFFgcm5bew0KsTMMx gTYxr3U2JPBCxippeJe2tL afZ39tl1M3XbmwV3kwIDFw ZUHsO6GgQE2nSXYqDzh2AE C9EAT3QDBfXAEnF5GlIQ8s UMVvkAHbKVw5e6ncfExtQN HfJRH0o0xxORjenqDaQH5a pp0wnBb1v4tjjgQvWQUySM EzgKSUBFFrE7LieKjgYr8g wRm5lYggLzteKND5Oyj4OE 7zwk20kfo2dRlyXUCkfdfg HrW0DYsnVHSoqrtkXMw9TM obPHRrhRR9CYVegXQuT4Zm MIGlVU0djyc4OUN0WNeuNQ HvDjV1GIKbwEZwWRHvjUux TOneg439RLB4BsUpWF6xA6 Soj6P7cZ9ppPIjPWQeyDGe GuHjJOPwfv7lfHQbRLrac0 IzILD9jtR0sYNbhOWcKMUr SB65Ifsba5NjLecfi4NsW8 1jjEH0PVclt5flFE4yHuS8 msKwIGqhs1tctF7nZnX3EE idXM0pGG3vSQQwmT6sdoth XHBnYnJkcmhlYWRccGdicm BzAg0mnBroGFU9LUgvP6pk hU0xXaA6YZjhN4fqpS4hOT y6MVpqcIH0NJGuyC0nGV7e elbcd5ujELqgQXmgDICdzl E9weG6FFPvmNDcV9JboR1j PUFdEL2hpomiu0hiXJM0LZ kgSWMrZAM2LdQiSHXcb3Fo hrb9VfEcn3ZdxVYrCOifU6 5cq199XSYpgvVvL2ehuMXf cossvPFowhelQMxqdjC7CK GkcmDbi8FyMITvFWI1JRld TAhovQGzISWqrLfqr0guO0 RscGFyXHBsYWluXGYxXGZz MjBcbGFuZzEwMzNcaGljaF ukREzjPtJgDRXlMAihK6oy NhWaD1IpZNMmMlRnrLQeD1 ggVGhpcyByZXBvcnQgbWF5 TRvtQ3o6FMNydxMcwYa5jc WoDbRsFXWqPWN6GFfnyXPt JHQpv6CfowzkwVKwYg3bfZ BuWLRktP1bABTtGEVyQUtk PX6okKq2QOXInLIppDLqVz DCIWWaBQ91oxMzVGHKaiwo e0V1DKoeXXMxh3LigPLlW5 sxq2DgBFZqh17aYM0ko8E2 l9kcEUK2TP1bl4AxTFTlbB CevNKcTPHvq4Sdbylby8Qi JAHbdcQmt9GiQVYfgsRryC IxMTWizmOkkn3zpvGrWJEv JMJuX0LvnsrjtTrrxwZoFJ Bzww4ztoImCIE8BDRQQMHo YRTpy8DcmQ8ceLGSYNI6aG Lllr5wlkJXdWZcXLWbgv51 KVLgXE4xN1wzCXUzFITyku JylQKuc7BmDEUfdMQ7tYDl YI6FXiFId34dRQQvJPHSph AtDOMfdPimdKH6qjM2fR1m IChGREEpLlx+IFRoZSBGRE LxZA5mrlSnw1UqutBemZfq JEYhuARxu6OkjPXsr2WnlX smi6IpsPQxuJHyWB8qZCTr clxwYXIgVVRNQiBMYWJvcm X0w8IqQPBpNIJfEWC3dLbq uhe9EZHwdC7tTJFdO2dpwd gpQNulIALbc9HayZ3ysKBB pVXsa6HgjSTwmKWLzXNjQL 0pjfCtKBrGNUjXPXG4ebJv MEMzl9YaZNugZ0uoU96qcZ egsUb1kDX1EDT9cL8dQjx+ IFxwYXJccGFyIEFwcHJvcH GgIEQsmCccfeZdG3AbnyGq pU2ufMMrouGnYK6cOI3pM4 Z0uPYhOTMuynVyh8nzLMdy dmUgYmVlbiByZXZpZXdlZC Jiy5OqJJpwCXR9GRsnrhSs bmNsdWRpbmcgSCZFLCBTcG RhqTRiIXC2GQuwnwNtyiLc OX3uvS2atUlnkT4zbWKzgY R9jjihFZPfUTMzqWyhCPXq DD6erFwmvG2bUyDjMaSkCY pkLZ8pKEYjS4gfrRQhEORb EJDiB9uaMpFviE9fuIwjTC xjZjJcZnMyMFxwYXJccGFy XHBsYWluXGYxXGZzMjBcbG FuZzEwMzNcaGljaFxmMVxk IcFcAEXwPMsfH9bcNfTzK6 VmEKLhUbDcfJGtT0mjZMhw DAU8HCVoWA6eoRMwVE18bG Swm3rbPMmhhWcqnd2mI66c wUKaVYrjeGemGKDoc59zi8 JsGJVculGlgk5xZXFpzyO7 gZ0oMMZzeTcpXBIeePNtIR Qbc7GbYMmtaPXswfAkACdi XILuFAMrrKTubrK4ugWgok JnwbSsABYlsHzcKHEde8Zb SWHwQNyro6Bngn0piKOcMQ VfpxKXoZvlkRTrsR5wV9Tq LYWwPEYtpn4wXOQrkJ9gLS cas5QbudtoLHCsKEXuBLUj xvYhkf3aHPEcwCRAUN4PJJ ulkXDlt4KnrtFiP3gQNJY8 NUQwNjYwMjgxKSBleGNlcH RbNYLrng60WWXnzI6nsEqf JWQazD3noS2deUhnnC9kEd UhZsVaGBhiPX0cSXDjM6fw lSAdAMOxPCWhH7rwMqArhH 9jaFxmMVxjZjJcZnMyMFxw YXJ9fQ== Embedded Images (test code = [id number]) [facility] [id number] 19:23:05* Test Item Value Reference Range Interpretation Comme nts Case Report (test code = [id number]) Surgical Pathology ?Case: [id number] ? Authorizing Provider: ?Dominic Keita MD ? [...] HPylori ? Final Diagnosis (test code = [id number]) f4fjwDJzARHau0kwLTQdbH FuZzEwMzNcZnRuYmpcdWMx ASwgogZmCEiklNbyDDJ8ER HwOT2okBawjXw0oRnrJKCm ksH8cZCeRRqai1msIOB9n8 kegiakCUKdLPxrBn0dwUAl vWmyRmYtXKHhWRl9bG27HS AdhU5xfEUeFVg6DFAlhVDr esKuUwKaYIFoqQIrpYT9VK UuLO1pxpagIVfoUNgmGONg raH4OPAyvAMqY1ZbIYVkRV 2sivbtZMO8POqrZFDvMLT3 LaRqNJCsk5Rvsch4EsQgxU FyZFxwbGFpblxmczIwXHBh thZPKnUNYC6MAGXBKNWBO0 aPFSPPZB9DBICGQxcszLSw TTTsNSJmFMEMGB1PEBEvB9 aXGnIiYW7XPZMtVJIqzDOz DEHfxxHJGgMIHN6XRK7VBO wgQklPUFNZOlxwYXIgICAg FLWpXFzVX9VQGZLcBKLCN3 TBOBkXYZfpUz3tVXXVMK0P V1wGV7MGAMZMIC8AYWdiXO XrDQQzXMYcZF6AEJawQGPJ PP4DMMOWJHKJLInBJGELCC QPTMwOJNEYX4OWUMxEBGXx tzvuXOBsVs8tJ2HKSMGGVT wgQklPUFNZOlxwYXIgICAg TTKjGJXSB1QBZbZEAZ3WE7 5HIDWPVRCSUH3ERNMFGTxD GT2SHOPJVEJGRVCQA6HybK FyICAgICAgLSBOTyBFVklE IS2BCARGTfCWHPcHVRWuAC lTRUFTRVxwYXIgICAgICAt EF8OOAazYLRRYG7ABSHYSf dBTklTTVMgSURFTlRJRklF QTVCHJKGAP5GNd5BBUPYPo xwYXJccGFyfXtccnRmMVxz c4RwI7CgMzYbLIdvkbHkML JsPklmkksyGUXcMAE6xxNn RXHwQXrvKFBoTFfmGa8mmQ RznUozBvWxVWOwf1dfctOI DJzkUyZbT164YRHpEAcwx8 zlj3DfNFTdxKOxr0U9VOLE uxshuCs2u3msNeByNdY8gH KwJRplP9ybvmZrqQBnN8Ok aXSmpWz4lYmtO85hz7G0Wj lfV0vwMZCgUVNrK1UvDR1q HILbDha0BED3IWX0WRRgXE PvX9RfWY9uTWOpeIOhNVv9 g2lvsEqoBJFjIVC0h1wcKJ vjtoP1TS5ubu2cuKi5q0ac czEgRGVmYXVsdCBQYXJhZ3 UzsUzcAb8znMy6nNntSszw SMW0Ruf7TK8tcn21tds3wZ plDFQeaqypSgI8NOiuSWYo lrfrAFt5BQwzNXVviOO4TT AixATlD3AfCNKfIS1oaqn1 EHW2BQxsCSPzNxE0YDSsvG DmUTVjdXuuQOjrk949NMP9 OkArBY4lM3Vau0Y9qE3hoF WgHJXrkFUtEmPvZWQgmp7p gVMuQOpnp4DhDAL9muZ8fJ HqfCDsVKUpOR04Jlbdn5Gz EditYZH9LIXviwFzf7Ues2 goSiYezdLwX9vwG4OoRMNy MVZwAWAzMyOaqzMqx0Luy9 RuxPRhoQv6e0tuMHTgGBHq rGmcs3boIOB1LWJfE4G1jO Ztx8opUBipVTMroLX0npH2 UCEohOIcX6CiuE4cUNLkCA 6vymr0n4qcYOP1OQzfDXFv BtS6gzN6TUBpjSAwCAMlfB cuDWxyw655KQA4EoLdFYLo j4CtE8MckTomK91usZjoS5 7uLZGwvRbdkC5gkWnigX5l ZjBcZnMyNFxxbFxwbGFpbl xmMVxmczIwXGxhbmcxMDMz OVncC3jnKyMqUIGmiGihUU xqu7XxPYKjMXMkGfezcgCo XHBhciBJIGhhdmUgcGVyc2 9uYWxseSByZXZpZXdlZCBh nAahv6OzW7tkSH7eZ0RwoH TjfzNnmtYbMTqkNIZtv9q9 fWGemWqht8SbuFPoAU29wk XsETVvXUR8HVJku7woRV11 sxomMpWmtS54pzTcwrJcHV Vmr2laG4ovxVImm5Gob6Gb geXxXPict1LyNB7kmUYxzo zqwSO8VHBlbUOvlxZozbT1 wLbtLQAkgN1wuZ5pnOxcoN 2eSiEbRrLzAHjfKC6rZURl Q1tesLSiVMGtYGDwY6ckCh DxeQ9ixXrvYibdorE2OYMm cn19 Clinical Information (test code = [id number]) Shivani Schuler is a 47 year old female with IDA1. Gastric polyp x 6 r/o adenoma2.Duodenal Bx, r/o Celiac disease 3. Gastric Bx r/o HPylori Gross Description (test code = [id number]) b8bshOXmCXJycFMHFBX2UV WpSW7opVuztBv8rRuiFBYn zmK1yHRtXTdgi8hhQKV9f0 oltoRJGuicQOExJR5uXMsb HZJnKP4mIcUjEKMfUwSvSD BhcGVydzEyMjQwXHBhcGVy zEO8XAKpHZ4zjighZYesJH uuOIUbmzS2DVEqoPUcW3Ve XWDgBV4cbzebAWN4EVESWu pdKb8grGBpeWvfJsHsFuOk YXJzZXQwXGZuaWwgQXJpYW l9uQ3HVxrzIQH7XIWXRqvz FdaanHavz2YkzVMiTRFkFW xcaWQgNTEwMDAgXFxkYiBP SaHrGdV6Nfg3FIA4TbE6UX r2MXAKLPDuMxneFMY2CwP8 KOt7YMCgGR5nLUwsdQDkJJ fhKwygKUrbY933DPvaCCRw V8QaT4TvDNsyDtNuAZxhWK HeIWOpLRpzKDSnF6EUNCLr ALB1YzEaGTJiVBk2SKajZ2 HUGPUsAMIkQeN0VZHeLkK7 WLp2VQSSQp3dGWipVwPuLM v8ZEB5ZUx7FdKkYRUtXwBu GPXjTRTxCEwwpSVrXL8hlR huIQKoKR8LNULyVHlzKRTk WpJoO0MRZ0fHRS6aJCstbR JjaFxmczIyXHBhciANClxw ELHaKJ8RSMGwYKycVHx3yu ZkFOWyJlDsZAJhQ72ze1MZ y9PbFU5MDRg9xmSfswtonO 8hZVDoznDjBEaRlHFwfN1t jfVAWForYHJpE1HgmcBqNN fwOYHree8fbQrfZLtuScHo bGVkIHdpdGggdGhlIHBhdG ghvpAjK9M4jnYfLP6rMSUJ NYUihH9hXMXrUVVrt1QuvM UdwUjvH8NyhVXuJiYah9c0 dKE4HRKoofTcYDKehYVmQU Oypt5vRQsuYfDcV6I9MXHp RZGrx47moCR0huOoOlTrbW x7vNYbQQW9YQ8psKptwzGh j3k4uC1qUKRsy9M4TAKfy4 T0ZHEgdwWsiNXlrVMvZELs IZ0mbhXqJV54NUCpYQukAT xxJVI1DWB1MREohNGff6qf clcqTf2oYNkzSR4wMJxuHV 04OGUzGGfrPYIuG1MmR8S6 URpoAAAmEGMpiRMorH5lzs GgikPnbRa4EYOxIWV1nUJy zXaxZHBtOlfsfZK2IZAzEu LpazWkg6TdoEo2uPZiYGah SDRgoH9xhQ2hXJVwEUNlst FXWfotYRKsNAzwp6SuRAbi cGljWHNhMzAgDQpcZXBpY0 9sz4DBn0Mpz1zgiFsvc2Mp aIXgPP0wpHSdDL8Ek1wvLC IheEXiFQO8VHnol1vsERbx UFN0MAGqOxOlMJJkVM3UFw PjXPxcXEr1NDjcTSj2NHy3 LK3VNoQyQIUbJwt0AuH7Mt RrFHc8UVgtOE5MPES9UXPe PZBsVNwzTTY8HRIcOLv9UW IgXFxzcyAzIFxcZmwgXFxu E65fvRTwLZzjAnSjSYnksV ygAAMbCUC4DB7WETIpDkVm K6TTI5iCAO7zUpkqroOuRI ByabPQSftrSASuPF6QOXAg XHpvQEt9wdCwPWVcGoRmZF JkE81ka9TGa8NgUE6TQCy6 qtMhoxiwmD6hKIGqazMma7 IzMFxlcGljWHNiMzAgDQpT vMYarR1yziKMVXbxZEEhG9 VamfMnHIkgGGSvlj9yvIie IGxhYmVsbGVkIHdpdGggdG koSFXbqTrlnfOsK8A0clJj GM7fKEBJCEHryR6gJFPyCD WuLUZxLUSaaU2qXQK8b3Du auGgEWTQYDZcsVonMQ81vS BjZWxpYWMgZGlzZWFzZSBh urItboLnf10ijnHei0MnIY 5czFudLFxNUIpaPbBrOY4b VORoenZld0RaFF5qJFKctS HyUQEddwghrARvFNa1jVSj XNOcWbEihGlsx9BcZDPsZE vgTU76tuSgOC7nLUhwWN3g XJmzIJ6wDJKgPOIuUIXcYg WkeUTeZqQidGItTeUrF00z QuCPtSRyj2AhS3raBA8cyX XcJxqrvZDuUWAtwVpwj9Rc gBOfOMPsa6EwfLCyCMheRI 0oOIR7Og0ztJNrSDXdziB4 t5OdFEzoEXWbMkasZUTwKW xmj5MmJJVvzJEIh8GeMV9X XHBhciANClxzYTMwXGVwaW CWh9DiZHYPIqyefFsnMoPx vGNsXkU1DUHfsXZnGPX4ZH 6vuDqsVKJzJBf3QZksKCLr L1YjN9QvCSypAoFoOUpwTN GlSAXmENscPRWgS3MZBIMz XQM0KvLaZFPtQWw0GDwpE0 SBWDJyXNNfQuU8EGQ5DoF3 SMz5KUATFo4gFNgpSnEeNO PkGoZ9EAs3AgTiYUXwLjGn HIEeKOJgTPetqUPxFO6dvI cuNTPrYNDpHDM7ADMsrUAO r6AgILPeWEnuQgTwNBAEXV AVHY1OZiUAKZLhYyAfvDWd YA7ACUBrpsHwROfmtPrrjO 0kaMAnL5ucBbMpFmcwyEjm TmVzdERvYzEgDQpcbHRycG FyXGxpbjBccmluMFxzYjMw HSBmdNSXu0TzNGIVTmGrQB NpbWVuIEMgaXMgcmVjZWl2 SHNkeG7wZn8wnLEqoI8gsJ DbOKmkYFWsi1k7pUX8vYDr sFL4kUEneAtqPzBjXI3hgX NhVDORRL48iIZlfoHmBQYd qT4gJOYfAUBdQNO0khmxMV BPETB7hEGsl6C3AZwhQHC1 nB6ayWuiZoDeD8I4ZOJwWT Jmk15ylQG9hgTbSwPzHEIl cb5fxK5mKDzuaoEpuBqukv Vby6K0OJDxw4H9PMAcbfOc wUZchRKbOWZjUpA4TWMkIw P9MFGsTIYaaFTtDOMoAK5i VGhlIHNwZWNpbWVuIGlzIG ObnSFqzxCcMDDckh12P0ay PZMnpA9vw9tzSnXfFNZjJH RgiYJtkKX4AOQonB8hpD08 zwRtagXCUD6oqEQyZU5WUC NiMFxlcGljWHNiMCANClxw JTGbPKkhr1ZjDWmgmRsqHU HnJrSxUFwZpQgwTHGEZ4di gVRwSWxzBWCNBWgUT5AIZZ 8DWDKwhQCROZV7OD8qLQxs LMKbA5RxF3TaanS0m0eojQ zea7NpxDZuKO6smUNkNY4H XHBhcmQgDQp9 Disclaimer (test code = [id number]) m4ruoOVcWHPnb1csKBNboR FuZzEwMzNcZnRuYmpcdWMx LQydnkJlKUxvn7IbS1LfOd AwMFxhbnNpXGRlZmxhbmcx ESJbCPX4tbWpJTKuUXfvEN KjUWveEc2ejVYgbNqcApHf EHJjx2dykfULGJgfCzHqF1 67XBPdPYwjg6jof1MnJXJd nQBim2D1IERRysfyxSr4yF vfA57wa6E1AsayT2czNEHm NAUmP7NeRE6pEFFpQai5IN T2JEB2IZCbDDNoW3BuRI2m ISUucLXqIOo2l2dmbXxpQU DyOLK5q9abBAjegeKmCT6o pr3xfOp3f3jgtfOoSJCeGS LjmTEZSBGsI8DlsZfyYn9k gMz0aSwiQzuxXIX0Pnk4CN 3fqb66lrz4aKssFRWkdnaf OkJ0LStfABQvkusuBYi8WO bdYIBtkMK6SZJfpTJaG2Zz CDYjMN0fkzv9OKE1RStqEU SoXoS1SIZbrNXqSNIkhWqr BRiha049NIH1GbPuMY0qN8 Tut0A9gY2mmGRtGRFogCHt LsYkSUAria6fwSWkFFtjy2 AuTUN9afE7wCOjgPPhLHEd RA18Tmgbc3HrAypgl7BvU3 0aaMI2OJwlz8lqWE2xAuV0 mqVnIQzcu2qulU2mMpT1PY qyHF5fLW8aLVOqzB5bnajj XHBnYnJkcmhlYWRccGdicm IuKv1qzUcfAFM7BMpaJ0oi uF0gGxH5KBizW5jwqN4yYS v8ZTbacWG1GGZatK3eEM9g aebgf7lzMIiqPCvhMQOsev M9egP6DVZfnVJcH4SvtT9j INMzEB0peuuji5lnRCJ7EC iyICHqFZM5QpFlTLTjs1Zf rxp3WnVdf8WigXPcNYiyT5 6kn104KZXkptMvO4puaJPx mlnckFLkhrdoKNfwbmP3IL VlcuXjj6CaSEVlPCR6GHxb MGkonBGaZGOqoElfm5rcV8 RscGFyXHBsYWluXGYxXGZz MjBcbGFuZzEwMzNcaGljaF fbFFfvJqXpYCChVJwyH0ti UqEqQ8HiSEQrNeTjpOHvL7 ggVGhpcyByZXBvcnQgbWF5 HRezW9i6HHGwxgCpyLq1pu NoSuOcUNSpQCH7NErlpEVz MSWhc9BthjmhlHKpBz1lkT HbBJDmvS2zAWHrKVIyUYjv VW1oaSs2VHNOrOXqzJEhGb IJBUBuCW87lgTaOTVDrkdn i3T3XWwwSWMhj1DiiLFcL0 tfd7WeJJSmd60yFM2zj3V4 t6jtXSE0DH6an9IySHGziQ MsbHKzBAYdg9Fyabhtb6Xu INOgzkIka9GgTTLgjuDuhO RpPXOyxxGiwr3bmfFqGWKl UYHfW6UkxlwkkTsyuuKgJY Uqzv4qbqEvHSC0YWIOJUEu IUOwc5ZwuZ5suUJPBFX0lX Cnnv4fniLNbKNrWZKron48 VSByWD6kO0flSJArCFMpzk QcoEEkq1ZuEJChcSR7sWMm HB9SUwXPz48rUYGnAZNWay ZnTRYswZpkdFJ6phM4gN8x IChGREEpLlx+IFRoZSBGRE FgNX1fpfHce6DxiaXjcXqf THNbhFBid2QxvEXjt1LidB mud3CkaOVkwVXoHF8cNFVx clxwYXIgVVRNQiBMYWJvcm S3q2IrYJFaCTXaIXO8xRxi zuk1DCHqwP9kYXGoD3nhbq ljDGulNKVcc2ZlhW6kzCWN mOWou9RpjFJfvOQGfHCcZF 2bmeKeOLlGCMjENRQ5upCv DCGmu8NpCCenQ6rdM27ucX ialRt2fJF7XQL5xF5aLue+ IFxwYXJccGFyIEFwcHJvcH ScJRAekZaklxAbZ7IjjnIo aF3nwUSvgbGpFO8aNG6xQ0 O6dMTzXQNxwaSno4lkBJcv dmUgYmVlbiByZXZpZXdlZC Gha6TvMQoxDBH1FXmtsvKv bmNsdWRpbmcgSCZFLCBTcG UdsHKaMVN1FZcnsxAijfLp VQ7fyE0anQmlbQ5pzCZafC G2mckpZBCtNNMwnNbkWNLa UX8srUgbbR3rTeBeLyRrTP wpQP8vCBHtZ0udfPLrYXAz HSTgQ6kmElTeoY2gmDtyOF xjZjJcZnMyMFxwYXJccGFy XHBsYWluXGYxXGZzMjBcbG FuZzEwMzNcaGljaFxmMVxk UnIzFTFyTTcdT7dxDjVdL1 JnNBHxHxEyaDDdF9duAIyz OET7UZIyVQ0yjDHiID41zX Mou1zaVFzovDkydd0mP60r dRKkQRtkmDfwACEzw09mb6 MzKHZowhYjas1yVUYilkF1 aY6hPNLgsRmtOHJufVGfUW Mjb2GdWZqscQFjciVjSJfe BVQdTRHrcYGlptR1hzFvtq LdqqGwQSPxkSycVCGbb2Ee MAOxIGbqx7Njra1qaNSpBC PfkgFOzXqjvSPmaZ4vW1Rl IYVaQGCsbk3uFLAwlG1jNI xna7UiyuhcADWoDFWeAKIy wzByjv4iXPEdoOAOXQ3QWX xxtDOdh6RlqlIfB1fFYZK9 NUQwNjYwMjgxKSBleGNlcH ZiPMUdoe60LJVloR6svDqa XYIhoB3leM4csMfqeD6lWo QiMbLzZEryAJ1wPWWjN6np nADjDSWuBZIoN7cfVjMxbY 9jaFxmMVxjZjJcZnMyMFxw YXJ9fQ== Embedded Images (test code = [id number]) [facility] [id number] 19:23:05* Test Item Value Reference Range Interpretation Comme nts Case Report (test code = [id number]) Surgical Pathology ?Case: [id number] ? Authorizing Provider: ?Dominic Keita MD ? [...] HPylori ? Final Diagnosis (test code = [id number]) p9kmpCJbCBWxs4yoHJBdbA FuZzEwMzNcZnRuYmpcdWMx MRkspoSvEMzlwNpxMQY1SY KdYD8frLfvnZb6rVraZKJk caE2qCLhLJrcv3wvLOQ6q8 qoxntkDICsNIerXd2inYBd vImzZsJzQXImUMu5hR96HU CtvP2kxETcRKx7PUPakZOs zdEdGpOdOVQmkXUohNF6HW ZwUH5fcqqkSWlaHCpaIEKj eyQ4NAUwxBSfW9AjDGZkOM 3lxnguXLK6YCjtHKJrGRV0 KdDxFHBga2Sphju2DfYbuK FyZFxwbGFpblxmczIwXHBh wbLWCtNIYD9HALBLHPGJD3 iYWVWEGI5SWROWKzrsjJJh SESvYTQmQKHECM5GHMQtJ2 wAUpXuWF7DXEJaEZSgkSSe EXSelbWXUjFJBI1EXT8QNY wgQklPUFNZOlxwYXIgICAg QIPlNAeDA4YSNBOcCKFDU1 LLKNdYTUghPr1wUSABFH1V O6dOD3WSMSAFKR7PXWkwRW ClMRMjOHBnQC0NPXjdLBNV SI1OYWZICFCKTBfKVUVRCW FOOGiTBSXYS9CVINnOCEKo kzzvACNfCp2mG6BFDXCWGG wgQklPUFNZOlxwYXIgICAg GILgUAKZJ4NNYnPYTJ2OW7 2AGINXSNEYVB5GOUWDMXdY KC8SOVHHVLJCVYDOQ9JekG FyICAgICAgLSBOTyBFVklE OZ6JEVAFMpVEBPbXVJHeGG lTRUFTRVxwYXIgICAgICAt PO3QFHfkRJQPON5YBXQRTj dBTklTTVMgSURFTlRJRklF DOVFWQFSSO3AIs3BIWFTEh xwYXJccGFyfXtccnRmMVxz o7HqC5GzMmCjBYzmbyLnUX PhTuspnrefQQPkIPJ7ivJs RUPaEDdjBDQeFBqeUk1kjA VjfNikVvAgAYJsp6kwfiHC FIucXoYzF508GLDpQRfrt7 vdj8RzXCUkqSMvb3O4MDDJ vtmyzDs2k7cmIgXrYpQ4jS KbNOhbZ3psteFasDZcU7Mu mWBalZx8oCrcR30la8V9Vf pwB8cwSZCjBSYgJ5LfVG9a OBYaFgf5FTK6TFG6UNKsDU ZwT5YjQN5jMXWnaLNuYUw7 u7rvnWvbEVNqNCV6s4miAE wvwfP6JM6pqu5zdVq4u6hs czEgRGVmYXVsdCBQYXJhZ3 HejWmvKn7yqCv9bCniUaar CES1Qwb3VR5zbi27yul2rK yoLBLohtpmLoD9DTsyIGMo icwwNRa5ZHktBJPovFR2PD LogKBkH9HiNYOaPF5ryio4 QOW4GAjtOROiBaX8OOJslG XgQQUniYcdVSlxu068YFT1 OeBnUV1yR3Gwv6R7oN4rsP WxNLHsbGZfQyGhLUMnxg7f cOFbJWaot5AbPGF9yaJ6cA LgxOHwFMKlLG03Grvcs5Vm SjopEHH5PVAzssQqn1Yep5 hpVfJhftYjJ6blZ3IdWPCz PHPmFDGwMrNhjbHtr5Axg1 CwvETenSm8l1faHRMnIWZr gCikj1apKLJ6YJAjM9V0gR Kff0cmADbiIBGyzTU8kdH9 JKHnvTBuP0NrgX1kFWVhIW 0weyk9o1ezLZQ2MWjkGLFv XdV8xuI8YMVmpORvPSLmmH qqCNysp422WCA3ZrCuCHAi b2KtD0PxbKvzA24woDrvT4 3tIHUbiJhduU7ruLgmcM7h ZjBcZnMyNFxxbFxwbGFpbl xmMVxmczIwXGxhbmcxMDMz NYkmI9vaIxKoZQLhsPkpMG hru6OcHZMjTTXhApcytnOe XHBhciBJIGhhdmUgcGVyc2 9uYWxseSByZXZpZXdlZCBh rDjtc9BbQ9rjTR0bB0OiaL WgqaGozhSbDXmbRDNmd9y7 aBAswBgan9QkcNEaRT72qh EyKNNvHCB0IFUjw5kbUZ42 ekklIcAlkI22teXftyBbQP Mgm6lnB9ojsMHay7Puj7Za adCgTAmht5MsGJ9cyCUohv ufrMH0XUMzpWFrwvJgwxQ4 gFexGTRinW8rnQ7lsDzxjZ 3uAkEmAxHlTCvyON5eBYTh G6bqwLSmLIQwSVIjN8jsAw YgmD2qoGknUggevtV4BFRs cn19 Clinical Information (test code = [id number]) Shivani Schuler is a 47 year old female with IDA1. Gastric polyp x 6 r/o adenoma2.Duodenal Bx, r/o Celiac disease 3. Gastric Bx r/o HPylori Gross Description (test code = [id number]) d0mhdLDzDCUunJCFKLI7JV NbWV2bsPxxpYe5wLvwCAVk jjM9bTCwPQltk9njBBT7y8 nrekRAEmmlULUcYN3qJKkz UHYxVL1dDiJjNPQhKfRmCY BhcGVydzEyMjQwXHBhcGVy bLG1KKCmQY8wuaauYPtqAU ruULTebfH9RXPaoXReU1Qy HXSiVW7kffkaJRO5GOCAVf hqYp2mwHRmdMndGcGaTvIb YXJzZXQwXGZuaWwgQXJpYW x1sL3BDxhzCTX2SAMEOrqo OvsasWbhr3PxmENtGRObKV xcaWQgNTEwMDAgXFxkYiBP BvSdJvE1Eqm7SAD0GdT3OB n4UQUXOIQhMnxgKIH0MeV7 ISi3HBQbBC2rQByeqNVqTM vrBbzaGDjsY055YLrqZNFm H4PmR3DfKTkoZrLwJNktCT DnVKFfQHalWGXiW5MRKFBy SFA1CeLyPKYySIq8CUaoG3 SMPURtDASfVyG8GEAoAkK6 VTx9IICOLw0hICpnNjXoBL i7WDU5HKo3UzFvLZNlMcUp TJSgVCHzPKdrhVKnEA9jtM moMCQiMR5ODJAyEDgbTFOf FiSzM4DQN5hSYM0iRUwaaL JjaFxmczIyXHBhciANClxw BEFzQL2NLHJkQPepQHc9ph XlLKVoIdZeCSMlJ04om1UF w6XjIZ1ZLWj7mmImaplnsX 4pPARvwwCrSSgYpWGnmJ8c tzEQIGnyGVMaU6OvzcAkCY fsODGdrg7tpPzjNEppGeTr bGVkIHdpdGggdGhlIHBhdG tdmwOlP8U7eoMqSC5eFIPU IIBxyA9vQZYyULBfu3KptS FunYmkZ2YtsUUeJyDxe9u4 wMC1VUTflgGsMBEtlGMyWD Yiso5sFOjzKjOwC2Z1NTTy KIYim71uiSL0faKbDzWzqF t1lOWjLOV2GF0aeNqkciQn s2q4uZ6xTPXak8P3QTSoh9 H2MUMyioObkJWxoUPtAQPc SN5akgSzGU17PGLyKBprTB qlSQZ5FUG8VWPykSJxb7ph woxbAi4gCYysTB0jQHyqYF 28TFKqUFzxFYRpQ0EmK2S7 GCcrNKTkXWPrrSGjnU5nsi ZeekSuzKn3TEXgDYT7bBXj bPzoPULsXrkqfEL6WGKjOb VlzoWgq1KpfJb6sVHjYFem FKKehR3ynP3aJXOaEHQuss PINprhFVBuTKxqp1NqZBqd cGljWHNhMzAgDQpcZXBpY0 2bi4WPn7Gbl0zqoQovw1Lq mJBhBO3btBVgBA9In7heSX AxiGOaGPF3SJaiv0sxQCgg NNU5RTHxNjHsXKFkPR3ATk PaUEezMCf2EKeoEJg5PBq9 ZD5GRdCcDNXoEia8CfI4Rz IgUUg8AJkqCD7AYGW6XLQf DBGrRDqqPWZ3PQVfXFm0DR IgXFxzcyAzIFxcZmwgXFxu D67pmXJgYNsgUvCnEOrsqR fdLQZbQWJ1XY7INOSkUfAo C1VOM4iVZY0rPmbncfFaJO SknuCKLdowWXXxZO5QKIWf GVpaBCz4odWiUMVjQgJqRX QmC10md3MYe9KuIQ9WUKb6 thKxgisqsQ7gKAVtzmQwm8 IzMFxlcGljWHNiMzAgDQpT nIVoxS1vrcUDMCefYZKeE4 FxhnTfMFwiLHPcum1ygLig IGxhYmVsbGVkIHdpdGggdG siQLIlrJlbdgMmV7E5jvYe YM0oCWPUWHIdiF2pLGZzNT RmHEHnKVSogT1uKES6q2Zb kwBuVISFJBOunEblIE77vB BjZWxpYWMgZGlzZWFzZSBh drAnolWeh34ithXgt3OrSK 9kdJqeVRbWRWqjQwXsQZ2g DNJcliJuh8VqQS4tLFMtsX BrGVWqzjuwvLKmGIm7nIOm VCVoFhTleZcbf8MkTPZiID iwWS84bwDkUI1mQGchZS7t UHnrAZ7pIDImRTYuAKNhXd GhpBWjSyZbsXYnIzRuI56c GdANvRUvb5TzX8wbBL7znJ QfSgwonJEbVGCcpXydb7Up oUKsMGLjz3VvwMWaRSljRA 1kREL7Ae9xtNTmLGTdliN4 s5AxDFacRNJmEizmNCOePY ddt4DxIRXeoFZKd4ZiVD2Q XHBhciANClxzYTMwXGVwaW HDb4OzRILRCdmymVsmCxFz jBAkUuS6ZJMisKRfNDV4JG 4uzJwfRYTgQKk3IBzwMAAe V4FiY1DtBCsiMpUfYJvkYT JfAGHtKMfvQVScA2NTBKNp NBW7PoLlPZIoNPg9NVebB7 TKHLXbDXKcRtW6MVP3GcN2 OSk9DPALXg9lITirDwGjDW XyZfJ5IHt4MmWwPMJgRbUv UVMuTKWbWWbwsBDfMM2srK lqXBJmFMGoQYY0GXMuzKUJ r4NpAXUeBLesGdHsHPHMOF KVBP1NPbWOSWVuRtNjcZKy HI4TSLShdaYoBVpymJymtG 1fvWEoA6txVcJlKwaldXwj TmVzdERvYzEgDQpcbHRycG FyXGxpbjBccmluMFxzYjMw DTDqdJYKe2ZhMRGTJpJwQI NpbWVuIEMgaXMgcmVjZWl2 SJHdlF3uWf0rnLQfbY4cmM BrNAtoSKRch7d5bLP6mMDf hSZ8nKZhaDmaXoPjYU8axX YtALFQDL33xZUxzdReISFp zT0nUGBdNMFeZQW2yuuqPN WUMPE6jALxq0P5HPgnKUD1 mA9kvAigDrVcV6Q2ZBDtMT Qic19hjKV6omMqMrGcPDIk ux2fwB3jTSfvsoOfvWccey Dij1C3APVxu4F1ADJpmxSn iLIjvPPpXSMdObZ6EPIvRm X9IQCdLGKjfOSlBCSaAV6a VGhlIHNwZWNpbWVuIGlzIG RncFJrmoMsIFIuzk16C9rl ZZKtzN5ik5fxWnElCWIrGS KssNFxjSG6YNQpaT9fcW94 gfMndhPRUE3qeKDhIC3TSI NiMFxlcGljWHNiMCANClxw CYTrDUtif8GjUXcgsGkzVR UlOpLrTLpCtYoeHEJDV6fw hFYdAEjwLUOBBMcBW0VBWS 1PLXNjkQGYGGF1ES5eEMss HYKoI9KhU7ZaflQ2q4xwpJ jnh1EvkFNyRD8bvFMxDW6P XHBhcmQgDQp9 Disclaimer (test code = [id number]) r6gnbUUnEAQyz4lsUULjdV FuZzEwMzNcZnRuYmpcdWMx EUqmyjEzTCuko7LkZ2OvJl AwMFxhbnNpXGRlZmxhbmcx GIWeWWX9arZdMYSnHUlpXK NkHEnuUr0lhVAhnKgjIzDn UNWnv6rbaoARPHdtUvPdM6 70RLRiUDzqd7rtl2EuURDh zBSpq6K0OIAOfaiyvJn5lW zkM72jq5V6OxvhM9txOIBx IIHcU7UpYU1tWTYaUth4FF Q3JDS2UWIqDQLyQ4LuCW3u PBKeyQFgUBe0o1rsxAwxOQ OjDGM8f3abZHrkefOnSM7c eh8gvNk4u1quswRzLARxGI KfcDXSLAVhQ8ScpDvfOn8u hLz6dWwiDmcpNUW6Voo2RL 8nzv97vre7vRwpOPAvcpqn QiG6TNqeRBFwrfsbDXd6TK ijSDJmbKN6QHDkgGKxF3Gd BXIuPV9xnnj9HBC9XTsnMK SgEdS0GYXjkVAhIWNzuOvb YCxoo196BIH1MfYxTI7rJ6 Qjc0B1aO8nbDQoWQGebBGp ZzRzFFToan4kgZMpXTrfm4 LtMMH4xkB4yIErqMSuTKXb UG47Iudbv6TrHvnxw6DhD8 5loCY1RBubn8ypYR7dXzP5 tsTnEMogp5odhS2yNpH6WF vwMC7sOA8eYHBevA3lnaxl XHBnYnJkcmhlYWRccGdicm HgXg1umStzSBU2IPjuM7ao yH5oHqI2HKboV0qyjR3hIW l1QIltlGU3OIDhzG3gUL8f egrve9rxJOagIDkpNTTzlo O8sfD4YKOwzUQxQ8GlgR3d NOPuGL8dhttju9reQNV2IW wrMROqQSI1KjDkFBDya9Tt uko5TcIos4UkuMIqXYxiY0 1sy894NKIrixExA5omzSFc xvlbkIDaihpgPLpnlpO8QX CjqwImt2FhCGBpEOW6MVtp LCqzgPFeAMCeoAikj4ztS0 RscGFyXHBsYWluXGYxXGZz MjBcbGFuZzEwMzNcaGljaF qnNPipJeWsQFXjELfcL6ay DpGfR8XhFXIsPbXccQImZ1 ggVGhpcyByZXBvcnQgbWF5 WAfhZ3z5QECawnYkbDm4wm RnUcKqVXLoBJG9LBkcnFNw JIUyk1YkabmixVYzHh2psF AtJYOqbQ0mPHTmTTWpCIpc ZF0qaSi2QRESaSNtqHOpXu RGVIWlLY14avReBDTFlouk l6N4XKosLIFix7PgsDJzM1 obr0JzLCEap76bBQ6rb9T3 y7rsSEK9VB6qw8TwHSAajP AywXPxHDNjh9Xkmuvux3Ij HDAttzWoi7NrHZUypoGjnE JsPKMlxzRxow6lswWpHLVo KWRsB4LstiyulLqtelFhFS Qrme6nydZhUCH3BAZPXMEn FWNcs7GvzU2fmOSWTGP8lD Fpss0dwrVEwGPtSOHzzm29 JQVwUK9rL1bwSONzBAVzzc XixSYhu7XeWZHdoYE7eUNf UJ1VMnALo55sBXUkHLSHny PySTWzbWfbzUQ0kqY6eY5b IChGREEpLlx+IFRoZSBGRE DpGT2wciNzr9AzrdYhbZce GBIpbKDow8EhaXKni2YvmU ons4HsjEElyTMnEJ1yEXOk clxwYXIgVVRNQiBMYWJvcm L1o5ZbLFCyYRTkRPL8uRwi ecz6ONYmmL6qKNQlX4amfu qmYEnvPRZrx8LxzW4twIPW sDKtb7TvrDNidYQTjRZgVZ 5ityVtHKpOWVpOBGC6jmKx QUNly5EnGMkpS9zjE12mpA vhyLg5nVG6WHF9bD6lOmk+ IFxwYXJccGFyIEFwcHJvcH CoLNNbzXakjgCfK1MlybKj cK7zlXSutaFtTW1kKI7nN0 F0nKTzUSIdshLib9hlCVxr dmUgYmVlbiByZXZpZXdlZC Nvu7CfKHslNOM7VNodfmFo bmNsdWRpbmcgSCZFLCBTcG YjhOOtYOA3YEplzuYersHq FZ4gnY7rlCaxlT2rxHKbiT H6fwekIWNuOHRcnKxzKRLz AR3pdQgymP7nQuUfZkAbSJ ffJJ1nQWEaW6uvvPMkFBXp FIYaR1ikThDtmI8hpTdqZD xjZjJcZnMyMFxwYXJccGFy XHBsYWluXGYxXGZzMjBcbG FuZzEwMzNcaGljaFxmMVxk GrYxLIUvMEpbL4fjYuBqJ1 MeYEFfZqPgdZNiO7gwQQrf HQM0NDOoCO6ytGSvRS12hD Mkm2flFMitoTrwqi3hF91i lSDrBFljfQbfYNUev87dz4 SeROCvpfVdsg9gUIFoyoB0 nP4jQLIukQzeBWHzqXMbPH Pnz8GqNCdnjYRdahTiWWyc EPNvIYQrxUSyenB7kwZgav BxjnQyVRUqyAjiCKVkq7Xy RKObXCzrh5Supr4rwQDeBS HyixAKoWyuuPKozV9pM7Cn DVBcUBKfds8aJJVenZ3yML ojp5TsxecjBQCwDVXsSXPp zbQlxp0nDZSjkJRHQH1MCD srbOUpi8ArndUpC4yZOUL7 NUQwNjYwMjgxKSBleGNlcH HtLCRvvi04URVpoE1mrUmc ZPScmH4aeM1xvHcblW7xLx ZiLaPmMZvpQT2iZFFyL1uf eYPbXONlXCRoJ7tmNrVirF 9jaFxmMVxjZjJcZnMyMFxw YXJ9fQ== Embedded Images (test code = [id number]) [facility] [id number] 19:23:05* Test Item Value Reference Range Interpretation Comme nts Case Report (test code = [id number]) Surgical Pathology ?Case: [id number] ? Authorizing Provider: ?Dominic Keita MD ? [...] HPylori ? Final Diagnosis (test code = [id number]) g4jtcTIdHHKor5xyLHVzdS FuZzEwMzNcZnRuYmpcdWMx EDmgowSsDZbamDhqFGC2RV VvZB1cdQzwhQk7tPesOEQh ycU1cSXcJKlsw8pnKGO7u3 mlcoklWWWhWNdnVv0lwTFy sRkwXhZdEFZpUKf7vP98UT EzrU7ugMQhKDc7SPQphBWb euMxXlGgOHQozHXucQZ3EC IyHZ7tldwqILnoCZsrYIPx mgC3IQDnkOCiG1IuNOSmVO 3srjwgNIN6MUueJXNaNPZ1 JgPsBQXcw1Wfocj6GfSnnM FyZFxwbGFpblxmczIwXHBh szRHNbECOM2YTFBWFBXPI4 xFDTADFD2EEHVUDqkmeZWs PQGzXJRkWABTOS0LRBMjA8 gQOqSaGM2OUPYuLCPdoMVt FJNtdgSHKdAVPU5CIW0TVL wgQklPUFNZOlxwYXIgICAg HEAoMAxWX1DRTURoKQOJZ2 BZJBtSTZacDc6eXDBOXZ7C F7gJZ1LOUVMJQM8UFYkyGB VtCMCtLGQdMB0ZSFnmFAXH HC6MOEBDFWEPXGdSGOYWHZ CTCFnMKMIIC3MZKUnOFERd asezSAKuHm3aC1MSLBHNWI wgQklPUFNZOlxwYXIgICAg FRLcUKOTK1ARTtGXTI7GD6 9AZPNGOSOECD7OKYMHCVzL ON8LJKYIUGVRYHGZO6LdbJ FyICAgICAgLSBOTyBFVklE DM3BPUMFOcLJWJtQLDRaCR lTRUFTRVxwYXIgICAgICAt KU1PZXnmGKMXUM2MOAQCEe dBTklTTVMgSURFTlRJRklF ZWDXYBXEBF0FVx8DNFVRQu xwYXJccGFyfXtccnRmMVxz q8RpW3ElHuCgBYwfqfCvCK MrSkvxmoqjENJhXUD3itWu FHNwEUqpZMIoMGtgAc0efH YxoYooRmYpHRXrm1xdquYQ NExuVqRnR455BTFrWLtsg4 mlg6SwJWWuxTWgb6F4QUWF ilbzrUq8y3vfHbOdGrR0qH YfEXviL6avyfOvqDVeN1Ca fDDpqYt2gGevN99fe1P1Ur shS3fyDXAtNVRrQ8HvQP7k QPVlShf6WKJ0QSB8UDAtRL UzJ7XzWZ5rXWNvrYNlNWc8 p0eycKjyRYYrGEO5n9vxYG hbisR7FD8vdd5xnKs9h8op czEgRGVmYXVsdCBQYXJhZ3 TvaKfnIz0giYg5wFwxFspf IFO9Kuc0EQ4mor10kwj7zF uuGGNlcflnIwV2NXwgOOWl ltzqTYh1ETrhRVIpeOO7UV XxhKLoT9XgKEYkRX4ocni7 REQ0AOgxDLStJtF0CHScwD MkVDSdtPokPTqrx526JSM3 TaBcED6hH9Gnd4F0hI5mdP UvBKTrnQHdQaTxODYvvz9o mPIqJIaze2NxYNI7baE9hY RzrMKvDGAiPF72Gatgj3Hn BtxpDAG2VNFzasJxe7Frx2 btXtVuzlCjY3nuJ5RoPSRu OOSvUKFwKqJjpnCnj6Hdn1 OldCCzoJe6m9roPWXtAEBb oUbzw3sePOV0ALQnL5S7mK Vmb7ffPNuiOPCmlYK0aqT1 PGJgsHMeA8NkvJ7lLDEjWY 9knba1x0neXQZ8EGvoNRPu GvD6wbJ6GCSnfAXrJVZkeU mbDZbgi090IQZ0LsDdKQAc m6GpP9HdiXisB55dzYgqA9 6dLAAtwLnkwG1ycQnovS0p ZjBcZnMyNFxxbFxwbGFpbl xmMVxmczIwXGxhbmcxMDMz ZCwcA8vzRrKhWNAssUdsJD zlc1SqLNRiKZCwDddguwYa XHBhciBJIGhhdmUgcGVyc2 9uYWxseSByZXZpZXdlZCBh bXgah7XxB2llCL7vX6TfuW FoqbJsswLsHVzzPLTsr6d0 qPDmeGwvm8GjtUCsYS23lc KeILUiSWS3DRFly3zpHS51 qpfxIbMbpF19nxLrxcAcZJ Khz2grW5vqqMBcn8Uqt1Ub ujYbAHqwg6XoVT0uoEEmar gxuDJ0RUNfdQBefuWtptV5 jLcjGECyeP8cvL3neIwixG 8wRwKtYgUqRKbgGZ4cXUPt Y9ljvRGcBZNuMMTaS0xpHm WnrA1uvRulAfvowcP9BVDt cn19 Clinical Information (test code = [id number]) Shivani Schuler is a 47 year old female with IDA1. Gastric polyp x 6 r/o adenoma2.Duodenal Bx, r/o Celiac disease 3. Gastric Bx r/o HPylori Gross Description (test code = [id number]) q2ruzLIgTDWffIAVRHI5JC ItEZ3cpPnhyQg1sQixCATg lcE7nZLyHXdvg1aeYPM7i4 avvtMZHwkcXVSvUP8gTAqu VBRtGH4oUuXtJQHiJbXqIU BhcGVydzEyMjQwXHBhcGVy dFJ7EDOgWI2vjmhlHCcnEP dnRIJceaX4YYQcpUEkN3Ul ZLJgWX1hqlvdGXU2ZCVBJp pjRq0moJPhsLftGkLdUfJc YXJzZXQwXGZuaWwgQXJpYW t6yI6HZtzeXHM5RKYDJbrp GanncPase8SisUSeVBFcQH xcaWQgNTEwMDAgXFxkYiBP YoGzZpE2Imp0MUT9HgN4VF k6WVOCVNFlHmdjBPG4DeY0 DMb0EQFoPH9vAIknjUPsXL kkAoyvTNnsJ092RDcdWQOs T8RrW1ZpWPhcUpKtVLjvDT NuUYUxDWikFGTnO5BNQXXm LKF4SpEiRLJvRPd0SFohS8 ZZCJNgTDIiHeP3RRAlOpL2 WBu2KTAZYt1lEHyeYyFtFR z9WKQ0RQe0LrIsCQTeLpVr DGRfSTEcQWmkjOLlUL3oxP vqXTOgBA2QJZWwNAgpETRp PcIfX1QJT6kJHE1oLKpblR JjaFxmczIyXHBhciANClxw AHFgJU4WPNYjBDqgVDj1kc OyVCAfClSqEMNbI07kg1AB q2OuMU8VPMc1euSzzwjihA 1sJNBbwfLrHBpGtTPixL9a eoYRNRanYKUzQ4RkjmEuNR sxQGLnro1gmHqeBYusVzUv bGVkIHdpdGggdGhlIHBhdG sjosRfV6B0aoUqKS1nMPKK NKLreX4mTJDoDPHlu8HozB ZwgYsuM6QsjKRuFoFeb4r6 aVF2GDJornKhYCIesSSgHT Tkpk7oEVsrLxAkJ7V3JQKv BWZim11itPZ2vjKePkHxvX z7jXLfHCT3UK1irKwyqnMf r3s5mH4vEJGas5B3LUPti5 T9SEQhfdNwwHFxbUByFQCw PP1qdpAfDQ44VHGwITiuQO dcBMY0XCV2EFKfiXXec4jx vfefAo2eXXhfDZ1fATrkLK 52NHLvPFgxNQWiP4ThQ7V4 ELhfTXUcFNWdrYCjvG1xjk AhcqQgzGr2XAAdUWK7gTVk yWqxJSImRbhysNK9CPHcJt VibyGmy7DbuDo4aXNrQOgb OJKlkU4rmP5oRZJkGJMdvw DRDghbWZVgKHmfj8ObQKhf cGljWHNhMzAgDQpcZXBpY0 2gf8RPw8Sev3qcwRilh5Fc qXMeSS6fjCBkHV7Dq1poGR KceNMiSLX4RPqsj7leUYfz EEG9QVHmHaWlENMqXD3GWm FhILjiDKk6ZLmhRIu9IPv7 LZ0ULlLkSQPaDqf2DqD3Mh XcYTc9ORjtHM6JTEU0AZKr XUIuZRsxUXE6QZNuLMu1JG IgXFxzcyAzIFxcZmwgXFxu O77tcPZnXMcwAxRsURbrwC fzLTUxAHA3YW2SXXBqVlFg F2KDC4bRCX9jEiffiiHuUU QhymMJHzenMNDfXK2BSTXa MFnhWWt0rmEpYMNwOqYfMC YiQ98te6ARl9QzOV8FWTs1 uvXsqvghxA0zXTDualKdp7 IzMFxlcGljWHNiMzAgDQpT fOXsbX6cmdALHOuvPTQkP0 KwlwMhQYldSUUmey7fqIei IGxhYmVsbGVkIHdpdGggdG roJNJiiPgioaIoX6X0euLj GE9tQFTEGDShtR9rDVBzLQ ZePBJhDQJgsH7pYKU7o9Tq ijTfFUCZLJMssHdtSI16sG BjZWxpYWMgZGlzZWFzZSBh obSmmdPff14nvtAsb8GjMP 1vsKjeWSwTQWzbVvJuWJ9q YCNtwpPlx6TrOQ5yQQPcaH XaNKCrgevpdSBnPLr4jQZi JYFeAsPlgFmzu4ZtKONqAG zxKS20ovAwMS7jONrkQZ6h KNthWA0cRNNoTDCfCOCeWe EfuRHdIfMzzGAoNzDwM87i ClIDaERdl2YyO4xxZY1ogP ZpQjkefSQcZJIzlMsjf9Sz iGJqWVVkm3UucVZwBNhzQA 8qOZA7Hd4kzFOtBXYtxrJ4 y1QlVOesCYWrOmcdZTMmYQ wet9CzOTExkWHSz9RjPG1O XHBhciANClxzYTMwXGVwaW QHm4NqIGENLtqgqFfcStUa vMHgDzM2FUGojZClDVV4FD 9qoPxsPYMkFMf6UEioUBMy D9GlI2TaHHjtNyEpEMbtAG AvDCXnTSqxJWKoI0KCVFDy TLU8XoHlXVRfHVq3MQvpS2 XVRUOiGNMcWzZ1WAM6MvJ6 EQh0KYBKPz8kHRxbFiQsCV DtFwG5ONv4EoIzRWHwWaBo VZFvENYxECkthZRjZW2auF yhRMBtZTNsSSO7ZVHcuTYS u0KyMOPjQAbhOgAkZNRNAS AFIF1FNbDBDGTnVkEztOSv IR3WWNOerwPjXTtlmLvnwJ 6daIUyU9mxPwLjTiypnCph TmVzdERvYzEgDQpcbHRycG FyXGxpbjBccmluMFxzYjMw APGmuCOGw6ZxRUYGRpKeJP NpbWVuIEMgaXMgcmVjZWl2 CIBagY2cMf8yiTIrpW8gzC KeIEjoNKTyy9w7sLE6mVRx wOF9aFXphTdgXbHjUE9osG DfGAPHBO71fIUbdwQzDFHo uC1dMYExAYOnQQA4iuxjKI IVRAB0cMHdz1U4OMlpEXP1 cE5amQrbKeHsT0W8QYFvAE Bib41gyLD7nxIcBkMeREOw wy5ysM2vFBpioyWntMzkec Sxy8M1YKPas9V4OWGrlpAf yRLrkLPeLUMzLaQ2FUMmZm K6IOQyJBIqyWUiPCMnEN2h VGhlIHNwZWNpbWVuIGlzIG IywAEeozXmNGFzjr31D6hk XZOskL6gj7lxQfOxTIEaDZ YalDTpuOM8AGSpvD9ppB50 nqIhxoESQB9zrRXmAK4XYZ NiMFxlcGljWHNiMCANClxw HOAdBKmoo0TeQJuoeRhcEF GgQfAcHZaCqFfuQQSFA7gl qWRqRApoZEVENQqQE3HNVX 4XWZNadRACUIH0CL4oTOeb HOJpM2AsR7MvbnZ3n5mlrA wwy4HljYAgAC9pjGImXO4U XHBhcmQgDQp9 Disclaimer (test code = [id number]) s8wqnBKoJYFwx3yxDKNvjU FuZzEwMzNcZnRuYmpcdWMx GQyskrTzFEowy9JnB6DgRs AwMFxhbnNpXGRlZmxhbmcx DQVjQPN4ejGhRSQeVXszBR DpJFqrCh6ysBDkhBzwZxDp DQZwp4wjypCLSBziBfCzE2 99GEMqYGiye6lpo2HoASYk gAIuq6H8HOCWtdccuXk0tZ suE25lk4U6IwjrQ7bkATPg JYYoV1CpYB2cHNNpEsb7CH B3IVI6DLYtSKSsS8XyHM4e FFSbnUBdJAm8u4cfsKuxZS OaMIO7h7ykIEwvknKeEM7s nd2gpCd8t4lqnyKvMIRcHQ EnkRSMNTEdG5UcpMwlYu5k jZy2tFavGelkIOQ2Iko0LL 6zbc54kjf8sSjcXKFdljqn QzZ1WPesSZElyyiuJAr9VP jxOUNvcQX6OOZtyQVmN2Do DCJrNG0etmu1RIK8DJdtCT RyKwW5NAEyxVXpPIFteCdt IIrrj301TIX9FkIbTK9aN3 Bcd4K5bA1zxXHaPQMtdAXq WnQaWWXzoq2afIMgTAvkz6 BuSIU2phE6aAQyuVShYDTa BP34Ijpcl4JqLmnjc2SwJ6 3csAD3VKnmr7mmSP0zCeT5 axSkEBmos0osfB8zOdF5RL jiBN1rRY3oGEXkeZ7cieuy XHBnYnJkcmhlYWRccGdicm YfHf9yqRptFMW4AKwoF3mq nQ5pUwA6LXnsN1dxhI0nZP l6QQlmmTY3AAQbvL3pJP6u nbwcv2svUCggSQrhBMHmyb U6ikK9TNRweTUuB8ComG9q VWZbXM1srytlc3xwKGN9RB agVIEcZNM4GzVeDTQzz9Dp kmm4TcHds2FquWHgSQanS8 6hu737QCAzktJdD0sfuPPi hhtvmZVjttlpUWpfgeM0SO VlmwPkp4ZsMXWgZLB4MOcd XHykzPUzMWUbcVqdj2aaP5 RscGFyXHBsYWluXGYxXGZz MjBcbGFuZzEwMzNcaGljaF ytLKulEqEwIRUhXBnmM7gy OcFuG0FqGXBeTwXvsQMjV1 ggVGhpcyByZXBvcnQgbWF5 WQxwM0n2KQTiryNgyFb5ac EoUrNiTDYlBQE3EYthgHWg IRBno3IpkzpyyXXgSa3dfR CwHRImpX9cRUIoXVBoJUkd TR2deTi5FRHBmIAzjOEeKc AICXDhML97tpUdNVUCtdie k9D2EZbyVMOgf6HupJTnD0 ffz6QnXZCcy33kOP2bz0A9 v0hgJJT0LP2mb4PyFLLzcR QvfRUnDHBeu6Bqvjwcw6Wa XIUqfkVhz4YoDUIodfYpbD JmMMNjzfLrlw2atuRxKLUq IHPkA3SuoyqlkRthcmYzCR Osgm6pfsRuLFF9ESTOBVCw HEAjp2ZuvR5gyZQPWSY7oS Oavp8ceaPYdHAaTXVidd33 LIRnKY1aU2hlWSSfGAZeks FyrKHib2FpQRWirJA5pKUv IP9SQaHBk69yWZIlUANYjl WkTNZbzUnkwLW5xrJ0aA1f IChGREEpLlx+IFRoZSBGRE YiKC0fuoMgw4TudkOvoOnp AFMtzGKih9AroSSyk2SdqD hpo6EvfFHxzNLyWW1pSAMz clxwYXIgVVRNQiBMYWJvcm L1q6MaITHdGWBhENB7fPpu vdm2DUYhfM7gIKCaV9ikck tzUFvmCYQov3BhtZ1kwXML gIUmu4LxjPCazWQXsWFbCL 8lnjVlIXfCFOkUVWG1qlZd SYDgx4VmFZcaX9kiJ63pxT yxtIr9tKZ3XAH7tB4nXgq+ IFxwYXJccGFyIEFwcHJvcH TlYBJwbByuouYmE0SmhdVl xW6qoAGpmvFmYK4zMX6uV7 W2tWVkADGtesKtn2guNKkb dmUgYmVlbiByZXZpZXdlZC Klh4FeMUyaOPE4YVzfqxPb bmNsdWRpbmcgSCZFLCBTcG DzpULaHAG4DYsryjZpveRx LL3waL0ifTsupH5duQYdlQ P4imhfFIPiOHQuiVfnLSLz KP4fbPhcoQ9iUoHsVyXxSC jwFX0gXNJhO2nufVTkVTPk RKWwU7paQcNznG8fpDxrYY xjZjJcZnMyMFxwYXJccGFy XHBsYWluXGYxXGZzMjBcbG FuZzEwMzNcaGljaFxmMVxk TgAbKQVhMZqrA4isPuZcB6 LwPMXnVuPdqCEmK7epPKvh MOX8GXZqJM1btXTsXL23kK Eie7ofKQclvLlhtg5iC53b sNTaRXfelZetPTSge97dz4 YnNWFxzhSugx0lAHUgrqU2 xJ3tZTKzpIkpSFRloWVdPJ Tkr5CaVPplhUQxbiLxJCcu HYTkLXOszSNsmuC3fpQhxw CjlvRnFFXszEwfXSYmw9Ps DSXjEDauh3Znwx0qvGLvAL AejbEShLvphVImdS6xM4Mb CIPmKODohn9tOGVrcE4cUS laa7MwybpkHWLjBSLiLTXq zbWqei0pXTQrhKXLDS6FYO pawVPpm0AdheChK8oMKOW0 NUQwNjYwMjgxKSBleGNlcH YuYPHikl67HHToyO4teNis AOPlkK1ttM8fkPbeeP6wFw RgUxZmBBnmAN3lIFTbP8os nPAjOBEhJZLtW0ikHnTbxB 9jaFxmMVxjZjJcZnMyMFxw YXJ9fQ== Embedded Images (test code = [id number]) [facility] [id number] 19:23:05* Test Item Value Reference Range Interpretation Comme nts Case Report (test code = [id number]) Surgical Pathology ?Case: [id number] ? Authorizing Provider: ?Dominic Keita MD ? [...] HPylori ? Final Diagnosis (test code = [id number]) t7gbhBWsMPPvh4ueYGZklN FuZzEwMzNcZnRuYmpcdWMx OZwzuiMcCYnjoPowZSY8TQ EcYX2htEcjkIe1uHyxCRMy nzZ4zXZgFHrij2gcGVB1m6 nudxcaVATiHKvhCx7xoMRc gCpqEcDdFKVwLXu7qJ98FO BmpF2fiHQwWWl3YPSwxFHw orNnFbOdXFFzvKThcHQ6LI WePK3iubgaQZsnEHucPDXe kxN9WHFylGXcX2XrBHEoLP 5mmasfYIP4SIvlMIQdLGA3 CxRcELLko3Svpoi0JyMgpI FyZFxwbGFpblxmczIwXHBh cuHJFhQLGT5KKWOPVXKUE7 pYTXLXRS3NTLOOUrgwiANa UCUwYOZtSKPIGU8TOAQsC5 oPUoUkQZ7PEOFjLAZxqJGk OEFltxLNFpXWLW1FMQ0ZJU wgQklPUFNZOlxwYXIgICAg TBLkPKyZQ7LJNMVwUTYON2 FZTTyYHYjbDd0oHBTFMM4Q E3sJP5UYQEFUMW2YCPcqWM KuUXGxDXGvRA8DOWyxUYCJ LW0EVMPQGGQKTRzBCWGVHE WAIRuZXUUFC5LLYGeRTUMh qesdFKXmAy3qH3BPACHIHU wgQklPUFNZOlxwYXIgICAg OZEjQSJQK1EDZaRHQA7AK9 6CONVJAMGCPQ9RPVJTQBvE YC0CVYFZXYQVNHHES9PuyC FyICAgICAgLSBOTyBFVklE MR5YNSNBEaRBDDoZBLSdPF lTRUFTRVxwYXIgICAgICAt OB4ACBdiQBYRQX7VLLFINw dBTklTTVMgSURFTlRJRklF AZXOXVLJVW9FVz4RAOUSFh xwYXJccGFyfXtccnRmMVxz m1UmZ5DeYzNzVClrgiRiJN MbQrtewhzuMXWdDVP9lzBp OZJvXTyhCWYdQAdmAa5mxE EhvKkwKfRfETSms3pgvoBY HNljWzVtV849TVLaPQqab3 aht2MlSMHorPFli2I0BZXD fpmprIk2m1peVtNsGaY9lW KqUWmbE6jhaeRqaKDuF9Zo eYTcsPq1nHvyB04fg9R8Tg dkO2uiZUQlEDTiB2LzGW9i ZRJrQkn1ZVV2DEQ4NQShMM KsP8XqUN1oDTEzfPVnBOa2 p3hhnZejESQhCIX2m7xkFW iigcZ5RA6ytw2twJn5y2zg czEgRGVmYXVsdCBQYXJhZ3 BmiRyvIa6izRu9uNwnDhxm CYC7Ohn3IH2zgo07naz9rU hsTEQsshyjUkC2KVcsFRVf scccKTr4RGfeWTTusVZ4VV CvdSPjI3LuTBAhPW3pwvi0 CPG8XFaqWQJkNiU6FDMvsH MpXAXhgBkeDMztk605LIF9 SrXcNM9hB3Xzf8H9tX8wkV TnFPTicDWtOfZcPSCjyi1u zCKlAJjew4UyQUL1naD4lF JktPQsDLFmCA99Bfnmu1Hr LlqyUUB3ELDnxsEci8Ciw6 sbLnLoevUhO2uxG6FzSQSu EZWxRETxJlMbtvCmc4Lfg2 EjeVYmqYe4s1piOARmJNDk bRqbs1rfDKJ9HWBwC3A1tI Lva0jzFErrIJCxgEW5ljU8 OUJboZYdT3RzkE7wJOZfJU 0rhxt9q6qcGCA1YHdnAWQn YnP8lgB7XJXpvMExNYFpaQ zrLTrqe380LHP5NpKfMGDs h5AhH4CsoXpoR19iqBatU1 1jAPGacMyneL7nhOrvaC0d ZjBcZnMyNFxxbFxwbGFpbl xmMVxmczIwXGxhbmcxMDMz SDdqH0uvYhXxUZRanZxcPH pkg0PkPKRzXWLsMcpmscMt XHBhciBJIGhhdmUgcGVyc2 9uYWxseSByZXZpZXdlZCBh mZlkt9OcX8nlWC8iI1VufP PhmrXbnoWtJKkuABHgp4r9 tMPgbPnus2RhkWJzCE90jk XaSWSnOBY4CWWdj9ybRU65 ctlgMbZorK13irUtnpDjJH Adj6eiT5abcPEdy9Blp0Qx lfDpMNnzm2ZmXF7dfJFakt onfUE4CXClpAXxycLdrxB1 tIwnQPZlgH6laZ5upTxvrF 5aIzOpYxHvVNknHD4uQJRv R0heyNVfRVFkSRTsD3zbVh TbaO5qqWhpYtvhorF7WRCh cn19 Clinical Information (test code = [id number]) Shivani Schuler is a 47 year old female with IDA1. Gastric polyp x 6 r/o adenoma2.Duodenal Bx, r/o Celiac disease 3. Gastric Bx r/o HPylori Gross Description (test code = [id number]) v0ggiLCkJUEwxFDIAIM5QR RwOT3yeJofzWy5hJhaBZLs qlX3aJCyQVkkf5xrRBE4i1 zwikGUQteuUMXfTA9eJCsd MJXtWU3nFpTfASLvRvQhWP BhcGVydzEyMjQwXHBhcGVy oMI3FNFrGZ9gbsuaIHfbLM olFBWasvL0AQIsoUMtC5Ap WRMfCY2uqfxmDDX9LVSVHo kvAh7mnJYmjXoiLnTaCgVv YXJzZXQwXGZuaWwgQXJpYW d2hN5FGfyaESN5AQXFFdlp DcbxzOxor5BfaCUlBPBwND xcaWQgNTEwMDAgXFxkYiBP IaXdYtV4Fwr3BAF1ZgF3QN z1YBPNOEZvHscbNXP5VzK1 BJv2JQOkLC7fDLrjbXVaRT lcXayjBIwhD928DDytAYDc J2BmV3EhJPdeJmXxYFeyAG OiRDFyGFqtYKFwA4GRZDWd GRR0RcEkQZPqFIz6ZCftN6 WRDABsLFOtYlL2VBIgRvK0 XFp1GILXZt2bCMvfGdPaBJ u9BOL4UYu8BhUdMBMkEmAn ZRFuQGWbXXdlfKGvQZ6nsS jwAAYdSR3BUEJiVAmzMDYp GhZbU0AUX0yVVT4eJRtqnF JjaFxmczIyXHBhciANClxw ZUIgBX2ZCHTzPJrqKEc4hz VpWVGaBkRnZTTnT14rx9OH t4VrHK6MQQt1onHiisztmP 0sHTMiplCaHQhEmGFwbV6v mvJCACllZUOlQ4VzkxOqZM fcBTBpnq0fkJvnMZimLsFz bGVkIHdpdGggdGhlIHBhdG itpyXhJ3S1tgHzZY3mVEHZ LXEljG9gFCYtCRXwn8BfdS MvqNcwQ2DuhUViSjFhp5n9 rPE0ABLcxrZgBYCemHGmLI Ziro2nHEqoCqVjU5P4ILBs NPSyo75ljTB4axOzUoKksC g9uZTaFER1DF4stXuvqvAd g7w1mH9hCDVbh3H8WQCtw1 L4PHVjpxKugVLkoWMzDOAn MN3rotNtAI08AYZlIBdkPQ qyPZH3OTM0BNNdsHVkl0bj epahKo3nEPimME0dZOjrDF 64SKOkRVscBUKuR7WnG3K8 UJezATJjGDPadIFgsO7kha EpgnVzuZl2UCPjEYP8fXWq jLfzHGUlTskweYS8ASJyKu VsrwGol3HzhOu1aNFsKSsm ZLHvfQ1liJ5nJDXtETLcfl BQAhyoBPOrKEnoe3KqUChw cGljWHNhMzAgDQpcZXBpY0 1gg4NJg7Shx1rrtWlqn8Dg dGOdWJ9voDLdLT8Sy2qfNK SiiUDqBUD3RXdpt2ioCUxd IRM3OSOlKmIgFQTxZG4RWz FuJWxtBGe6WRdxZVd5CAp0 IP8CApNpUKKyQyk3EvI1Ow GtBMu0PEfyIX4MRMX4SOTb EMQdFCydYYZ1URQuQAi6PI IgXFxzcyAzIFxcZmwgXFxu V15zvYTaANuqFwFrXThphY ehWRIgFAQ8DD9TLUVpHnWh M0CGU3hVBU2iAavhbnWzCQ JpeiGUTwtzDPWmRK9IMZTe EHymFYc9keTwJLKrUeXmQQ FmA56mf4IUs1RjJS3JVCt7 vfWenzkttS6tHYTwgpAsf8 IzMFxlcGljWHNiMzAgDQpT bJNqpM0ayiILDTaoMRGiZ8 BklgBtEWzyCUPbrq3umJol IGxhYmVsbGVkIHdpdGggdG dxCYLgmFcmzlFbQ4A8blKc HE8lJYKQZAOfaH3iXYYgAP XbJQHcSTHsqC3iVTM0m4Ih oxTyDAOKXIUqvDunWQ75gX BjZWxpYWMgZGlzZWFzZSBh rwSwrnXrk26kckCoz9BtHH 4poXxkNKnVMTkpLqUdER4y JJJaqhFly6DpVC3hSJSulP WoJKQsgnixwBQmDUk7xSWc UEPqMqSyfGdpa6VvGMTiUB vlYO85ctRpET6hUGcvPC4u JVseGV0nTKZeJVTaTMMvYj GiuHSeHyIdtNKtRuCpP22u WmOAwGWxj7WsX4ltOX7qjH UsYpmccLMuBGJgrMnxm7Zm uQUzDXNoa4AbrUKsSAxkUH 8eXIC8Qn6gpDBfPJFrrjK6 o2AoPXssSTThAzzfSYKrPV gwl5AyLXRznZXQw1XoUF0S XHBhciANClxzYTMwXGVwaW ASg5XiGPDCSdobfKlkEqSm sPChEkM7KHFitXRqFOO0VQ 0nqXaaTKTeAFk5HDkvNXOl R6ZoD9XkMRjvNuQwOTcxYA EgXGMnMYpmCZLlQ8PNUPDi MLJ0JvZgSSQuDUa6ACgqZ1 ZTTLCdRNEaKaR7FVU7WxO2 WRe5RHXJSf3vQQlxCbDdRQ NjNcE4CBp3XfHoSHMvApIn FSNjDXMkYQremOTdFL7vnI zyLHFvLSUvEUZ1ZCQauKID x4ArOJXdICteTfKhBUAHZQ LUIT2MKlTMQDDtHkQdtUHm DT2GIODgexTxUZmpaLcolN 0ziTCgZ7leKxJqWeursKqw TmVzdERvYzEgDQpcbHRycG FyXGxpbjBccmluMFxzYjMw TMWwfBWQm9JvEGIYFlRoMJ NpbWVuIEMgaXMgcmVjZWl2 AACmuN3uTo4nsEXzcR3zdC VlMNakDANqd6c0zFF9fXOv tIG5vULawOyfDySoDL8kpT PuBDYSHP19qPWfqeZkFVUp nX4vJWNvXXZtCUE5nlhgMC URTJC4gSFcm9X1UBecQKT6 xR5iyWevQpRbU4I4RLVaKH Vax15pfKM9ufRaUtRoILXe ig2exO9qYZabzrKocKtclo Jok2I3TKRav0W8WCPtpoHs rJCmqJUtGNIyKtA4YZVdHz B2XORvVQGayASkFKTvIH1c VGhlIHNwZWNpbWVuIGlzIG OhaXXuzjEyNTDfxv69E7lj XETayH3ql9teErGbAKWxAA WqeMOogBM7GYPunR8wcJ35 aqHibqVAGQ3uyMUzCM7MJG NiMFxlcGljWHNiMCANClxw ZNFrLGdmm3HhBRthsPeyVT TlNpXiDVrDjTkqYNYXD0dz uUGeRMlyDGWYPReVQ5IWHK 9EWQIqhAZFAXD0TF6mZLwo XVUiO1VeN1LfnwL8l4ispG kav1YsjWJmLA6wwAVyBO6H XHBhcmQgDQp9 Disclaimer (test code = [id number]) v0fyqCRzMOWru6cdSIZiaT FuZzEwMzNcZnRuYmpcdWMx FHtxyvSsVYhez0FpR9QrMm AwMFxhbnNpXGRlZmxhbmcx VKZaGBL3rkByABSrMLlkUO MwYVzaFk3pgBFybPtoNyRu FFMjg3cqzkQSDJifNxVfZ4 03SRQqEEnyl0cfs6UzHXKm lUXlg0K4EJJDbfyonNt3dB cmI84oz1E0XarnT2hjDAVj VAZiE3AbZY7lLAHcGue2WL E9IVW2WNEzXVSxO3EoZB1x ZUBxpMOwUSp8q6lfjThzED NpXAO1w3xwHWjsifJjMS8a ln8xzHw0g7cujyFrODDzZK RjlSEXXHLsN5BnnIbqQo3g bIf0nIrdQxsmOCN5Lfc9YP 8grj61tmw7fVreNTIllylb FdW2XErlFKWjfxklVQx7OX hyAGFpgSX8BQQgbZGkR1Om VJCzBC9lngh6LZW2CNwoAY EqBdW5ETAyuOKwXHGkkQpy QDzkc909NHC1KgCbFL8nO9 Cgy3H6zT4qnPCjNFYrlWZs HaXiBXGcdy7iaBWtBAetm9 KhLTF6mxI7dXPvlKDoJWSv EN00Yrxog2CyXnxhf9NxP3 5xfEH5MZkml8bkWV2kApQ5 rsNnJXfiv2uysI9sHbW3BT wyEH6zIP1jEBRmbY8rjopu XHBnYnJkcmhlYWRccGdicm GbKa0tvNakDAT6CBzlV9jg aX3lBxI9FDtzU7dxtP7uGJ d8BBxguIV1CPLuuN7wAW8q kmrcn0glXYncXOifAGVzyv Z9svT9YPTzsODmA1EvuW0u YRGiCF2kdtfnk2twXJA4NM mcKPJjFEN1VtHuONRjd0Xc hab9PfPdb4IcyEQmKWiaZ8 3lc439TRWiuoGvZ1bjdJPe pwilkRVkdfwzOHajmiT7NA IorrXos7GqIRReZTS4OZqb ZNgxkDUxGGHfiPndk5xgS9 RscGFyXHBsYWluXGYxXGZz MjBcbGFuZzEwMzNcaGljaF rrFUolEdOlDCPuBRnkH9wx IwAmY4QxZTObUnAzgEPmF3 ggVGhpcyByZXBvcnQgbWF5 KHvbY4h1IEBbpkDgfNn1ut AvOtKaGRVnCED8VYqgxCAg JFNag7FwzomjkXDcNf6pvI XhEFIdbW4cXKHoPUYrPMzy PI3nyId5OBLBdCSuvEYpWy ZMBNAkZH82lxMpSEYEwfqm p3F1UMtiAHXpo2ZgxMUjD0 nep9UsFTTcx95iRS5re1B1 m1rfIGE4PB7tb3WdRYBmbK SbbNVrJIOri9Cacppyx0Xn WQOlxpWgf9IvLIFciuAsiI BhBBGxfiXwnm9lgaZmHAZj KJHdT5JqubbuuBhhmwZsOJ Esno1vvpRhAGP7KCDUBEYl WXEfv3DhpD7iyULWHFE0gJ Boef0jfxLVmMGyNFYwle02 DZYsHK2uF8naYPAfZKMmcz PyqMKuu5GgGLGgrAM2rQYf EZ7AUwAId55tNYBgVNYEow AqMZElcSpzbOB3uvE9hI5h IChGREEpLlx+IFRoZSBGRE LpKV4mrcYyg2UglwBpoMzq PTKzaDAta7SvuEKmj0IiuO skl3WbiJLwpFXfXN9rJQUp clxwYXIgVVRNQiBMYWJvcm P3u6NnWANnTDIrTSO9nLmp sgk5OUGnrC0nEXUsK7kpgq fmITkaCXCuj8GdzD5rrPKL bQIai1DlvLOsxEZPnTFeYE 6itaBaCChDQJrPKKL5htBn WQCxc1ZjPOtjE0bnV54luS ghvRi0qKW5QPD0kJ7kRme+ IFxwYXJccGFyIEFwcHJvcH SkPPKgoYufrfItD4StyzQu bY0ahVDvuoHqGL6tPR7bV4 R7cMRwDIIfzjNqh4gdLNnq dmUgYmVlbiByZXZpZXdlZC Hlr7VkUDoiBEK4HJqvhdBz bmNsdWRpbmcgSCZFLCBTcG GwqYNxQIY4IXcqsxEpzgIh EE7hkQ4doOrgiM3hbHLsnG F6rjveIPUzVRCaxMywDFBr ID6tmVsobH2nYdSjYfXwUQ bgLH8lWPWqP7qxrYXcGJJd SZLlI3lcUfKhoS8omUtmSF xjZjJcZnMyMFxwYXJccGFy XHBsYWluXGYxXGZzMjBcbG FuZzEwMzNcaGljaFxmMVxk SkNtOWLfVWmmS5opIiSlL7 VyPQKbFnVuuZZhV9wgMTrq CBF0TJWwNS2exGNpTM70yE Ltz9eiYDhdpUvqje3gJ11q cFFcMRbqnJhnPESvl53xi6 SuEDLekoTlup5xLQQrjgC7 fF0jFVCiwRbbCBEmqSMgWV Mti7OcYTrmzEDmerChPIjw CGFfBBVsvWJlxaO2gyGksl NeeyAtPFLhfSywBRCvl9Ea XOZwKJxrk7Iaac5gzNUqIP CxjiNZyRgplQOolD8nT9Ni YKXiMEDcll2aCAEjpC6fVC iue4XdhqfkZUBuCLQmUEXv duKwiz1yAGWbsGOEOJ4TIF flsPXew0ApxcWkC0aKIHQ9 NUQwNjYwMjgxKSBleGNlcH NeGNBrnv86MORzsW5acTgt JJUctK1tvC3qxAvtkD8cQc JqZyCkQFteNM9tLHPxQ6hn jIXsHSYvDYZlG8lpXxUejO 9jaFxmMVxjZjJcZnMyMFxw YXJ9fQ== Embedded Images (test code = [id number]) [facility] [id number] 19:23:05* Test Item Value Reference Range Interpretation Comme nts Case Report (test code = [id number]) Surgical Pathology ?Case: [id number] ? Authorizing Provider: ?Dominic Keita MD ? [...] HPylori ? Final Diagnosis (test code = [id number]) [id number] FuZzEwMzNcZnRuYmpcdWMx OMdiruOsAUqudGcbMNW6UC NfMM4ksZyupTt2sBzuYFVo gqX6tWQaNXnpi8nrMFI2k1 hakgleQOSfWJxtEw6nyLEt rPzaZsTaAZOoKYm0oH94FD XyjD6rwTAbOMv5HYPavXOu evZhChPlPXQsyNQzsSB9IX YbSQ4lpfogIDfhJYdgBDXp xxU2SGLaxAAvE2ZpVPWxET 8hnrkcKKJ8MSkpELIvGTJ9 SsTcZIBgz9Oocvu3YmFwsA FyZFxwbGFpblxmczIwXHBh qnRWReHBFK7LFXNVGDQLS2 lOIQMNTI4EUSZWJfgtdWQq NCYrVLRtMFCFNV0KUNWnC4 ePKgMyMW4WCUWbWAOusRNo EFZoglCWWeNPDJ0OHO0XRD wgQklPUFNZOlxwYXIgICAg KRFsXGgVX2AHPSJpPPHME1 NCUNmKVOcfDm1bJCCHZN3Z V9oYJ7GVKHPORM0VOGybUF DySVRaQVWuUP6EBWjxQSYH HW5VEBLBDWKNLJjAICJWUC RGVRkOJRBJL4BXIZiMDLAt giicCYCmWh3jY9SEUCBCFO wgQklPUFNZOlxwYXIgICAg VCSzYEHZZ7POWgWMMF8YV8 4VHLJXTNCTRZ4XAYSVZLgY JS8OFXQRBGZQHUAWY4FeuG FyICAgICAgLSBOTyBFVklE OX2BBITMLpYPSQrJRQNzHH lTRUFTRVxwYXIgICAgICAt ZL0TPLcbWAFCNL8JUWBMZb dBTklTTVMgSURFTlRJRklF BGSQEVTFTL3ZZc5MMWHAUi xwYXJccGFyfXtccnRmMVxz j5OzU9ZnJiZgVUsslfEzAC ElDgzoxmjaMKCjYIV6nqCn GBObNVfsJRMiVWtjAw9stT PfePpoKaNwOMJvd7khiyMS QSnaUsEkO585ONLgFKkbj0 lyb0GaQOBdnNPwp4A4UXCT zytpnSo0w4fgAvHmWxB1gP ClCZtsH8fidhUxqKExW9Ci fBApkCr9uRtbA49yc4G4Nh jeW4vlCYSyEUXxX1CvAH9l FJVqCeb6CAV4IDL9MXUgRD ZtW3VkMC2pXESnlVZjFIs6 d7pfhIrgGIScUOV7d0yjIC avviQ4HG7jsn6ljPz1j6il czEgRGVmYXVsdCBQYXJhZ3 SxcNzrEg0tbWc3fNmzTqio ORF1Uug0WN7wfb08eru4iF qaPWAqdbefBpE3OJnhLTNp rcsvGKz2QTuyVYPtjGQ9RM NfkVUcA6SmERQpXO5zmew8 TPT9TTlsMCTrKzZ4RIAxyG YaGGIzdTrgEUzmv015JZG4 UwMnJY6xR6Kbm4W9uM8pnX MqCUEouAXiMwXjTBYxrk7g eVTxDThdw7EhUKN0sdL5vA ShfYVaRQAwXV84Jxixb5Db EtivCHH6WIZmygOdq6Tbd5 zsOqEvenMlW4bhY4QcOXBz QIAdADTkQgUnvuDpu4Hak2 QvvHIbhXl5k6fjFVUfZZNt pHrak8slAJL2IBPgC5J0xF Vzt3xlGApqIGZmfFS8cvQ4 VPHvjKYhZ2HlfM1wYSGoLT 7khyo5i1alJMA1AVswKGKw DaA3czL8AZJcuDMpOHGrcB oqWXrep738AHP4JuTzWFSu p9JwA1RjqBktG34raUtyM3 7zHVDlvXmndI4ypDymhM0b ZjBcZnMyNFxxbFxwbGFpbl xmMVxmczIwXGxhbmcxMDMz EZpsM4lyMkCqSZSoqPvgUN mvp0KuKZToEPPqCysmpfVj XHBhciBJIGhhdmUgcGVyc2 9uYWxseSByZXZpZXdlZCBh fFvaw4FaW1jyEJ4bU3MtiF PwcgBlqgUdCMqfJDYug6f3 xSOypOqov2UltSTmDO23xj UxEFCgILA2KBUim3bdBF26 nkyoOwKlhR23yqGpbkPhAM Tno8uxO8chvXGph8Mjj0Og oqEfJVqub0XkSV5quIDenv dfnBE8WXWwoKRimzIerdH4 pYhtCJKgeE2btS5ziPkrtZ 6gThJgYrUgISflFM4rRKPu R6laoKEfALMaTFKbH8eyGr GonH7yvCplQxufgtK2SVDi cn19 Clinical Information (test code = [id number]) Shivani Schuler is a 47 year old female with IDA1. Gastric polyp x 6 r/o adenoma2.Duodenal Bx, r/o Celiac disease 3. Gastric Bx r/o HPylori Gross Description (test code = [id number]) h4fakVGbKGYvlSQZQBL1NZ MwSR0ctWpqtFv9lEgpFOMj dlN3yHCqOMzyb0uwXXZ3d3 woebLHTlarFLRjID0cLNny YHKkPH9lRkQyNCZaRvCkTY BhcGVydzEyMjQwXHBhcGVy jDP9ZNLtQN6lgtvuDXqcAJ feOEBjnkR1ISVfsQTbK5Te SWMvJW9osebnXRS9LYIAOm gbHh9pxWHaiFseWjZsZiGi YXJzZXQwXGZuaWwgQXJpYW j5kA7CQubyZQI9BCKFPpcg NofvmBlsg9KydKPoOYZeQI xcaWQgNTEwMDAgXFxkYiBP QnAmFoS0Dqq6SGW0NuY4QN t2GHDIFBDyRtewSYD3CrB9 VXb8ZZDpCV2eVJxiwOPaYR ivCdxeXLmxK966JZjvSUNv L5OxN9HbDKwkJvTmJGciHQ PvPFOkKYlrVXZgF5XTPGTr MRK9LlHoZCRxXKx3KKdkZ9 RNFOTgFRPzEiS5IFNySrF2 UXp8GTFYMz5tEOvoFuNcGS h8JGB7YQg9LoZgSFHcTdDb GHYwEHUbWIrljRQgXF2bnW fkLHMsKZ2YJUMwLAogFOSe IdChF7QCD0mDET2iFLmntE JjaFxmczIyXHBhciANClxw LRPdBC2NDJKuYQigFFf2zg SqABIcPjBbPWAsU80ag0OL k1SvYR9CLCr4alSegwtjmR 0sNKCetrQiBEjDiCNyiF2l fjCWUWnzMKEhU4YmvfMbWJ mhXMXyyc5lhWvpXBvgGnDo bGVkIHdpdGggdGhlIHBhdG jjsxGhE4A8lsHvNK6bUAEX GOUacX4iEAXuCSEkl6PbgG StoAhbN2LoyNWhNsQkf1a1 qIU0JCXnkfNiRUAbyLHaUG Iuae8mUFzrDzHuF5H7GKLg GBChk84yxBW7rnHcLsPobL t7qPQmUQG7CS7spEnvczIl f0r3lO0tXRJbw8U3OKFqg0 N9YWAxnxNvwTLhkSAbXENx PU5sssZlPS95GMKeWDeyRT idOEE5JQT6JAAicPGur0pa dphzDe0vWWwkWI1iBVlzBC 82LXZuHVfmRLLsR9KvF0I1 AViaSOYaGSLsrLDniK9qkm HrqcLxtSn8GUTpDLC4yWBt hXucOAQsOphkdSU2HXGuSx BnruMao2YrsPw2kUQyYZsi DFPrnY7iwI9oLJCyTBFvnz TNQiujUDIoVTcik3BpPJai cGljWHNhMzAgDQpcZXBpY0 6el0TUl0Xpf6ayvCnlg8Wt oJQwZS4jnMUwKN3Hd7bjJW DdvAFeGRM4YGyjj0lqYSna VNB3LDKoXcOzWMJePE1UQs OlUGrxTWb3TJlwCOf0TNg2 XT2YLkPcGZRiUat2YlF8Qu ChUSc0HXzkHA2FBAR7IBEa WBHyNSsoBQU6OCSgKWt1WT IgXFxzcyAzIFxcZmwgXFxu D89rhHGhDHmtLlPpXFchjG ybHOCgNER2UC1WXDBwFiXn H9CZA6pNFS7cAscuvlLwSL MeraRYYfydBSDhXA3CXDSh GQhzTVu5kkSwYDNwQrErMG WtK69pf6FZd4DeIH7YVKw3 jrOohizfiJ2tJCAaxfHcq3 IzMFxlcGljWHNiMzAgDQpT pIFiwI4crgCAEKavXZNyQ5 OcoiGuNYdwINUnzz1dwUrm IGxhYmVsbGVkIHdpdGggdG irDJKnsQpyejLpZ7W6jjNx YX2vJPOZQQEriG1nZVJmDT NqZRSsNBLmuE3xNUN1m8Zq uiJyKGWSLUVyaTdwIE58iE BjZWxpYWMgZGlzZWFzZSBh oqKwsjGox10eyrIrg1GsQK 5avBjjIIkEHOtmQeBsCV8z EASofnUyb4BoZD7mFNCanS IsKATqjmwosUIwMNb5bEYk LRIxQdYniZasu3DxZCEcLP zlLF33gxMlLW6uGXhgYF3h FRifTA6aJZVdEGIhKBGpEb EftDUnPpPwaLQbQoPcU03m MkEUdVWjg6RpO9uhEG2ptV PnVvltyGOjDEFhjGztq7Xj hMNvCFMqp5OfnLMhOAxrFI 6hNTV0Lm2vbPFuPHCqkwX1 l8WzCSwaIFGqRczbRVKgDG jnh4NnQRRvwCDUd8VaZR1G XHBhciANClxzYTMwXGVwaW BQm8QlCXRJTuymaCdgWeJf nBTdSaI6HFUolNKpDFR3FH 8fbUvgOUXhUFa7AXinFDBq Q8LvU3LlSZnnBrJlNXlyKY CqCIUrBGweHADhR5LOCCTp AFX2OgKsNYRzVLz5QIypX2 XTOJLgRUPcXzO6SMY3MeW7 TJi1MGNOBj1yOVvyZsNdID ReZkN8VWm5ErQtCJYaJbUs ROLfCNJsMOlbzOJvBW5siS lpRUIaSUJbNAK5RNLqrEGP e4GtLFAfWZncKhRuGDSYBK GFWC8AZvVYHFEvObVfqTEu MT2GRILvlgQiCUkzfTleuB 2ekILdK2asJyXmHhsmeGlq TmVzdERvYzEgDQpcbHRycG FyXGxpbjBccmluMFxzYjMw TNIgsGZNp5UyLOMDSbBoMI NpbWVuIEMgaXMgcmVjZWl2 EQHwxW9hAz3nvTHqjR4jrW PoVEmnUJOis4k5xOQ9fOBg zEN1dVChzThuAuFiLO8wuG DaBWFTLQ81xXRmtaEqUBLj nH6hLCXcDOTmWGU6rnegKQ QQPXJ9cKKxr7H1AGrnAEF3 uQ2wbDmhFvTfB7B0SDKyNY Sxi00rbJY3asQfLuZxYIIb zr0uaE4kNItqwmXpvEaooi Ett2A3STEat1O4XGSffpXa wKFwdBIrCHRyVcC8HLXcVk M1VIDnLLFjkJZqALJtEL3x VGhlIHNwZWNpbWVuIGlzIG MimJRoorUvESSytr25F0ql YXFulP6fr1rkCcCgKLNmXE WvzSWqoNG4KALrlM5cuI68 uxRgzuBLAB8asDUzOH8DFF NiMFxlcGljWHNiMCANClxw YKRbXUorb6ItRAykxSdwGZ KiXoUbEUkZcIuwVVBYN6um eZJdPFfqVWMKEYoSC6NOQM 6RMCBkeXEPEAX1WU2zZPmy YURfY7OgO7UbwqF7h7ubpP auc8ZyjBSgXF1ppXQoHC3N XHBhcmQgDQp9 Disclaimer (test code = [id number]) f2erdMGyGHCxk8rjGGUceM FuZzEwMzNcZnRuYmpcdWMx MSzbvuVlTEjuh4KxR1XiBr AwMFxhbnNpXGRlZmxhbmcx WAWnRPE8jqZeHUElOLbtIW WlAMevEe8qfQXadHjyLtYk MSVhc5wvkmGIYIndDiByU1 93DJFcVQyrl7pdx9CfLVAw cDXof6P7DSZXrwmjyIm5zX ohY37fb5V1OnqtF6oeGTVs DXBzW2AbNN6mNWAkLva7CE M6MWR7QWBsNKFmN6PjTB6j XMZzxYKyHXa7s6ddeCrxOK FmAEG4d1qmIKuxgnZwFC1r lx4daBc7k8apbjWfGMLfKE OpeRGZOZFaW4KouDunVh5r iOl3hHhxItiyYOD8Czr1EB 0sld28rlq4xKouACZdjymu VvD5POjgSHPxihgjGTt8FA fyQPHhjSO5WGCymHMmP4Ec IMNjXK5qdsw3HQF3LRnbKC UgAhH0NPHjfBJpXFMfcPdg FUfhc307SWB7UcPrTH4yJ3 Tqj8G3hM1bkVLzNTPexFBg CgMuARQzgy3sfRMuPZwhy2 WmIJS0sdI3hJHanDBpCVBz OZ49Rtssz5XeXjomh8MlD2 0jaIO6ZMvft9azRL6rSbU6 gvPuZNbxi4zplD4bFqA2XK csDT0uKY2zIXIxiB9uhlhw XHBnYnJkcmhlYWRccGdicm PgBr8sxWhzTUG7TLwyW0ua mE1lHpL2GNcuC6hkhF8mYI r3QKttaRT1UFTxvN5dMU1p mqogt8ysTSfdBWlnVUMcct M3ivL5MAEmhPBdJ3NuiP6m WDApNL6nkvhfv8zxIDD4FO fqTMWnTYL2ExAtULHkq3Tz vjd3AhRne9NncMZiAGthF8 3xx093QNPnxsYsH2esqIYd upgrrBYtirlmTOodciS6UO MsxgFej2OqSEWdIQU9TOpu VVwusDRqFLOziWwim1ukA0 RscGFyXHBsYWluXGYxXGZz MjBcbGFuZzEwMzNcaGljaF jtBXecVcTfLNHmDFdzM0tl CpAiU3ViXHWmZjTqoZAxX8 ggVGhpcyByZXBvcnQgbWF5 HNtlV7m0MRTcklIhvCp4lt DfJtNaKDQkRWQ2LDtmvSEa NOYui2BzgbzhdAYdBg6rkW WtSSSwmA2pKAJjNCEpHNlk OX8jhRt9BHLRmXRbuRWvEz VFNMIwQH68xvIcWUFTocpd a6D8NHheCNHjm7QknKPxJ4 szb6LwTSWrd86nFT4pt0F9 d1jfQYN1OY4ri1YcBPYhzC EauGUiHWIhf3Rpjytka1Uq TQIcshNph0YlOBXozoXtgZ LsBGCbdzXgig8vlyFkMXCd TDWsW8ZiamtbzIjtlgUrJK Fmfs2eowRnYQM0EUSTCSHm TEGmo1PfkX0aoVDLNCE9uV Bmqt6ybdFHcRRmGAPvuz18 GYOjHG2iJ8sbNSBsLFMqny GawIDph3RlPIXmyNP2oQUi UI8ETjBVp70hIJSpWRJBmg GbCSOfaBbenMJ0pyO6wP8j IChGREEpLlx+IFRoZSBGRE RiIE7qqpClv8AhdfCdpGjp FKRgaCVsn1PupNWyy6NguA rqh5XukVNpuOYiKI4gMOXa clxwYXIgVVRNQiBMYWJvcm X6e3XuOFFvWPKeMOF9pQeu osb0EDLmkC6zKDWkB4esdh itOVlwPULib1OshC6zoEMD zXIpd4CttYCceYACkLXwEN 1sqgIvWBcXISiTZLO3bjMj TDKqg7AiWNmhZ4ifN99wiP ervQz4jPM0KIC9eT8gJmd+ IFxwYXJccGFyIEFwcHJvcH UaMFQfxOytxpZfZ6PdqvBf lB0quLCshhCnNQ3qJZ7aV9 R1eAZhEBBkzoJze2ruJCgz dmUgYmVlbiByZXZpZXdlZC Zea9TnNOlhRNF1YHibrvOs bmNsdWRpbmcgSCZFLCBTcG HotNSxCDV7EHkaawPevsWa KQ4eqK6rtHkvwX6vaBWwuH G5bpeoWVDkEADzzQwxCVLn MI3fbXrnkU4bIfIiLwZhFM uxKW1jKUTxJ3fpvIKuCGEc WNEvS9asFjGulK9ijLrxOS xjZjJcZnMyMFxwYXJccGFy XHBsYWluXGYxXGZzMjBcbG FuZzEwMzNcaGljaFxmMVxk DjIqAWJySVkuP5diZgHkT7 VcDAAtPvZfmYNsZ1cqZQsi JFJ9JQFcNH1fjNFyNY80sL Mkr8dnLUvtlAbzho0dV02p lCWgCUjbgSdxNLYmz88br1 BzFUOzkoVmwz6zIQPdfbF8 mP3bEXXqwUobFBXycPLjTX Bpo7YqIFyeoLMhxgNuJIar NGWxRAEjfAUdmrT2ugFrpy KzvtRgPTFzwCmpGTTkw3Jf FADeBIrzn0Xjma2hjUPsRO UxflNYlHndmWBbeU5hV3Do COWvZIRtgb2nQRQghA7wTD rts0IcfrclBGFoOCAqITOz cpGosh0lRWMhdQVZNX0GMB rkvUDlm8MxlgIaP0xSSWI1 NUQwNjYwMjgxKSBleGNlcH UfHIRlby52EILvsK0zoPdm KIJwaS1heQ7faEqnnJ8eKu AfTfUuRGbuTK8qFVBbP5si pSPuCJCkPLDfJ1yaYqYbqM 9jaFxmMVxjZjJcZnMyMFxw YXJ9fQ== Embedded Images (test code = [id number]) [facility] [id number] 19:23:05* Test Item Value Reference Range Interpretation Comme nts Case Report (test code = [id number]) Surgical Pathology ?Case: [id number] ? Authorizing Provider: ?Dominic Keita MD ? [...] HPylori ? Final Diagnosis (test code = [id number]) e2kccDYcBLNhn4ifYYGsxT FuZzEwMzNcZnRuYmpcdWMx CHakhmOxKDgwaGkoHDN3BB JeUS0svBwgcGc0zKzuYUCf giF9vWRjHBglo4yhZPC1h4 sqbzsvZUZvZKbsBy6cfSBy iHczSoDdJKCqDEd3fS74SQ QtmH7phDVrLLo4PEBujMBv ubMvObQnTMOaeLEmqKR2OQ YyDU2mkewvYCuuRZwxAMNi oyP3QZRqxZWzZ4KpVMOoMR 0xqivrFER3WAuuEIFoHVU0 FwCePJPeo8Trrcx0QwMwuR FyZFxwbGFpblxmczIwXHBh ogAZBrTAYC7OPLXYEDFKO2 mVJDATJA8NCEEPOlksxTSl POUgCXOwLHPHOP8ULYBeD1 tKOzXiNN5WXHRvJAFugPKk FKLihsBFCsOPFY4LNU9DND wgQklPUFNZOlxwYXIgICAg IZPoHWaCO2GLFAEaGAJOR4 NSYCeVKAvgWb6aKTQEGC1R P2tHG9EVIIQNUM7WLMhgIG AmESJgNWUxBU2CHRcaLDAB JF0KTCQBQBXIQKoXWEEXLF SSXSxBYXPTG7QRCCgMPVPc bxcwGEVuQv1lG2MSNDLGAG wgQklPUFNZOlxwYXIgICAg VNDwQGWDS7HGTkFVQD3XC6 4QWLOVUEOZIG4FUOHMIRnR OM2LLZMEOPETTAZLP8RqzD FyICAgICAgLSBOTyBFVklE EY5TEMXCRbZJGXyJNCDoBP lTRUFTRVxwYXIgICAgICAt JH4VVVdnOGCTDF3NPDXDXy dBTklTTVMgSURFTlRJRklF SYMHHBTXSU3NMs6LQBMEPu xwYXJccGFyfXtccnRmMVxz k0PcP4BvUrFgBJkissZlAN PmMftxfmzbPIFwXMV6szSb OQSlGDesDMEpWQiwCm1hrU XqzQbfLjAkEUQbd2znauEC TSymQlRhU615BNVcDQuwd3 cni0QhFAXrpANoi7E3NRQQ ykicnEd5k6sbUkYiIjX2aQ UhGIyqQ0gaqmAkvMEnX8Zb rDBodBx1uPghR80pv8N3Vb ksR5bpMEFvSXQbF9JbUY4e HMTeFqw4YXA7KNP7BQMfCI SyA0VgGM5zCLUqfBYuVHi3 v2sbnDgcDNQaJHJ3l5phIY cwofL6CZ8sju2awGg4a6ma czEgRGVmYXVsdCBQYXJhZ3 BroKhjHn3ioTx3dKruJzci LFA7Zoc4OL0kfq69nwb4mK elDCNzeaenEaQ2WGntSHVg rqiwNFp8OEfpFGUoaTZ5DK TtbMZfI1KvYCOhLD7nvka7 XJQ5GAepGXHaQyA4NGTjlS IcNELofQdoZNttb591NDY4 QhXdGU7xG9Qtb9L0hR0adN NkPHCrmZAdBxAzKTYipu4u kGHfYAigp9MwKZW5qhS0gF BvkMGsRQOaLE40Jivlo0Dc RzcdZAY4XKHekwKdg9Mgo2 zpWjNfgmWwT5psQ4QbRUYw HOCdRWVbXcMspfJor2Kcd2 KzlDMctCr9i6onLZBvDANa eKwsl9qoIUD3ESPqQ8B8bB Fwo1kiCVeeMYRugDB7irI4 AUWfhXBxF7XviM1eBXTdSO 4ijru5j4gjEUP4EZdlJCWg HvH0xaX3LCPnuPQiNMOpnJ poMOkzk283DQW2RqThKQFt p5QyX2LmlUuiQ63gzPtxS8 3nNBUlrPlbkS0uhXogiZ6k ZjBcZnMyNFxxbFxwbGFpbl xmMVxmczIwXGxhbmcxMDMz MDwdI6qyDqOrFOHdpKxvJS tke4DdCKCyUZHoJgntftLk XHBhciBJIGhhdmUgcGVyc2 9uYWxseSByZXZpZXdlZCBh cQjvr0AdQ0jjWZ2kD4VmyG GeunLjfcGlELvyFPLbb0s3 bNLogBgrk3FrfZAvRS32ki ObJPXtZRI4EOMfy6pmMF42 pbpfEmFasI11caMeinNaSN Nvy6ckG6msbWWvi8Sqb0Zx oqLwAOfqi5SsZI8xzTMdtg mcoVN9YTGsqJPtcaBesfG5 mNxoPYYvxD4wnK8phUtuzN 3cIyYtDpBbNYcvSW1sSLAy I5gybCWbKLFrMOZhL0mtEv UqmJ0rvQziFirnroT6GYJb cn19 Clinical Information (test code = [id number]) Shivani Schuler is a 47 year old female with IDA1. Gastric polyp x 6 r/o adenoma2.Duodenal Bx, r/o Celiac disease 3. Gastric Bx r/o HPylori Gross Description (test code = [id number]) j3tlnOWwCQJjoQCBHVS5SD MqTI6ksQhbaHx5lWapGOOe xjC7vIKlQHhka4bmFXO0t3 vzrbCSOdjfIMFgDB7yKByt CPOkAO3lXdGgOSZyFdKcTC BhcGVydzEyMjQwXHBhcGVy sOK9OOGdKN0ulwuzGYuhPK siLCZmdpP3HCKxsBXjI2Fi TEUlVL1tzrltHCT8ELSYRh mpBy1fhHDlxGjfOuFrQfBz YXJzZXQwXGZuaWwgQXJpYW n4dS2XYuuuXBI9NKUVOzrs EhdoyHqgg9MeiDMsMCCaWZ xcaWQgNTEwMDAgXFxkYiBP CiJsCyZ9Oiu0BEW7CgM4KB j8TPMSBLUkZfswQFE8KzW6 HDi5JEGwWD8cMLzztJAbOB auOncnLQxgE172ZJxjLAYx K6NtX8YiFQzxNuXlUCzyRE ReVMMoQMwdIBZpY6QDIQRt AXK4KqJjNHAwMXh1HMybZ8 MSQFTlLTVkHkI2KRDmQdS1 SRg8OCYHAp3qTQpzAbGcLN i1TEP8NZe8QuMgSGSnNfAx DYZmXUDcENxutYQsIJ9hyQ lyIWKpDX6HTRSjJUsqTPWu DzBkG5YPN7dHAX3rJWujgM JjaFxmczIyXHBhciANClxw OTHdZS8ZCDXtVDaaTQc6lg ZvCIRnViLhPIOiY52xy0SI s9TiRV5PTCh9zxUxzbzmuI 8oWPZkseXoWWoTaCXfdE1z qnNVTZuqIENqU4AfufZtXF jaXUYzoc3ytSluTAzgHlQt bGVkIHdpdGggdGhlIHBhdG isliRhP0P2qgJrYU4oZNYW UVWwbV8wNFPjIGJsn6XtwP PifAhjZ5PfnMYsUxJjc0z5 hMY9FLNspfPuLNGvyIDiDY Fang6rEKtqOmToY8A2IMTn NWMmh06nmZF9hoBkQdAfrT k1xKEyPXF2LF2qqYhyxgTs u2q2lY3xSZOkh7J1YASsz0 T8UIXzvpXpdJPlpBTaCWZi JC5mkfWaTD66NYZuXAgqWZ lkIJS2ZWX6PLDmuANbc0uv oawaXy1tEGmmHD7aNPytGO 55SRVeRUcdFKFsZ3TqF5L4 VOybBGTnGTZtdECjhI4iev KpoaFthIr5SGFtRTI9hOOz bZpiJMLeNhnasUJ2MBXgId RlpsEqv3VvyMv0qOHoHLig CTMaxI3ybY0kKREdREXfkb SJSupnKRBrGUlfk4MlKXyp cGljWHNhMzAgDQpcZXBpY0 3bf4CXf3Pha3tsdLvsn0Uf mMRvZW4jlHRrNT1Kg0ruGO VycDHpBHY2TLzgz1zaDFuz HML7ZIZtWpKdJAGqJB9BNf TfPLvzNYz4MOhqCWa4EGt6 ME4QGtLcISCpWpf4GxL4Lm DxYIx5IMroSG6TYOM5BNGk OFWxIJpbGZT2HJOjWTn6EH IgXFxzcyAzIFxcZmwgXFxu A46dgXUpAQdxYySuJIqcxC hfQXZlLFB2LT2XTOXuMwZk B0TKJ1zJAV0sRvivqgDnND IoixBFQtkuGBBeCT1WESGu FLtxVOi2mpSiYBWhVjPeRT HkC58fl4ZIj8WrEE7WBOj9 puFbxxzdnL1kNYMtuiLvc8 IzMFxlcGljWHNiMzAgDQpT kHUniM4ftyZGZUosURUhZ8 MxpkKfEZhzODTqgf4nrMcn IGxhYmVsbGVkIHdpdGggdG jyAVNdhUvfujPiV7O6gtMw JT3pAMGHFLLfhF7yRVQsWU RmIDUtOMLmiB2zATK1a0Rr csZiBNTTWZTeoJzsDT47cH BjZWxpYWMgZGlzZWFzZSBh kpNoqqOsh64vusYfk3YaVL 2swBnlTXoIYDhmStCpRE8t QOHrseZex7NpGK3wGHHmcV CkCSHdqspirIOqLJd7oQMe VNRfPiSzvOhuo4OlFATrNV atBI90fsMxFG1rBEduRM4f PBbaDI5cUNCfKQQoANUmMe OndUMySfTzrXBzSfXiU12g QhUOnHQnx2AxO9iqHH4qnC CsUvkrtKAsFTRdiVnen4Aq eGUdJZNii8BstMSbAAvbOS 4nNZM4Mq1gvBRyGSMnmoE9 b1ElMMpeCVXgPowyNVBmSF fmh0BkYOAvjTDZq1RmLL9Q XHBhciANClxzYTMwXGVwaW OUi8AfOYOUSxrdgRmyTxWh iKPwIeO7APVbsJZoUCW3OL 7hmDsyERYeLSh3HPulNQGv J6AhX6NaFFdsKbEwWEeuTO DvXMKrTCqiCYYmQ0PTPPHy DAH7AwIjRIRwVDe9GWbhJ6 MAQNIlPZGcCjW1CSC5DkH7 NNw7KCUQZy1gNNsnFxJvTQ FsBvL4MWo8LcQgMFXpPcZp AZCzUREdUGbygVWkGS2tfG xvQGVzJHXlRGD0ICTvkAGC o6FsJMAyWZdfSsNpAOQBMK QFVF4CEcMBCJXtKvVpiBNk GS2QFWGdvcUvPLfkmVahdC 6ksVZyR0zqWuDlQhcjjBpr TmVzdERvYzEgDQpcbHRycG FyXGxpbjBccmluMFxzYjMw UOQmyQHEe2EuBHDBGePlUS NpbWVuIEMgaXMgcmVjZWl2 GJJvvZ1xEp9dnOFqaP1doS SvCTffKQUnf8v4nCO2zECu wPC8kEFefAmtAzDpCJ1giI PhDTLIMG14iMVbetYzIRZq mO4mZGCjDHGsAHU2idtqHG DQDRF0cSDfs1D0BLjxKZB1 eJ5yhSvkSsGpI2A9YPAiJG Aiq68afFB4gfLsWyIkWGXs aq2sgB2yRUdvglYweGtpih Gqm3Y9IPEdm5S4HADlbcUw mOFvhXWkMAYbWjB4JFIbMl K5OQMuWIXhkMJkACGmDB3t VGhlIHNwZWNpbWVuIGlzIG LubRKkyxBkAJQqph92K6qh KAOzrP1jd1rkXgDfEHCzVH QptOOkxWR2AMDlsG3zcL13 qhBqwwAMCZ4tbYQpVC7QSU NiMFxlcGljWHNiMCANClxw KBUsRIhrr6GrEZueiNjyYJ ZxSvExTHlKxUujVRGJU8qf zPAeQFkzGBQBGSkBR7ODGG 3KHQKxdZRODBK7DZ5nOQgu QMQkX8FxK3FpsvV0z8usnE fng3LnyYCgLM1mtZRkGO6V XHBhcmQgDQp9 Disclaimer (test code = [id number]) b6clrBFsNZNuf3fkRVWhtO FuZzEwMzNcZnRuYmpcdWMx VKkmarUmRWqob6AgS6PrGr AwMFxhbnNpXGRlZmxhbmcx ZOOqVBZ7juKdTGFmRJxkTO EtTAymMp3cmSZjuZgvDhGd WFVyw8tmymXDQItgJjBsK5 09DNWtUNzux7qfs3DqTWIz oYYvr1I0TATSselzgRn1pT tlB85ul2U1GdxvJ5vrAHZp RWIsD9GbLR0uKDPzEjn0BB Q5CKQ9AUDvXKIhP8QaJO0x ZQFtsVBeKEn1y0kojLpsMS MgRWG7a5vtKArpheAkXG5h ot5tvUp7g2jpmlHzQGYzJS SkgSRDYDWfU5KtsNqhZo8w sFc8eYodTrzsWUW9Jex3LY 6ppy29ntm5cDbkHFWrierd FfB2QVgaKUEozyuyYKr2SX glIZGmoXL5TPZvaDFeA4Hq YUNoMP1xibj8AKQ2TZvvQZ CjWcN3GUQgeBTqVXCxwOvs RVfwz345MBA0RvEmHG3kC1 Hhd2V9dH7efDZaKFBieKTx XiAhIXBsah3cpBIlNUlua5 ZmDRJ2eyQ6qWAiaQLbBXEs GI00Meiog9BjItavr9IrD7 3doVG1RNbjn5qvCQ0kMaS4 ixThKTooy4kkuJ3gWwA0GQ qsBG3fET6bXZZuaV9auxhf XHBnYnJkcmhlYWRccGdicm WhOs2wfAzvAJE7BOgqU3qg uZ7oKiV0YCnkA4sypV4lTC r5QUurgNM0OBQuaV7mQO3f xnztt9ugWPxsSOhjBIBtpg I4otQ9JICmyHPmY6IfoU8y XHUfBY0zihycf7ohOBV4JR xhMUDcOVM3LoNvCQGim8Pu inz6SdSup7ArqJYkGRweJ3 1ru263WGNjcnXjK5lkdMKs vwrodBGpwiatPJaodeZ3OJ CacnOym2QrPCOyGUR5BFef DPbsyBIhQXXfuLimg0szH3 RscGFyXHBsYWluXGYxXGZz MjBcbGFuZzEwMzNcaGljaF wyTTatPzHgVQZaCPupL8fy QnCfV6AaOPOmWfSocAOxH7 ggVGhpcyByZXBvcnQgbWF5 BEmjZ5n2JTOsiyQwbPl5yy XcEtLfIGWdCFP2FMawpDOl VUSht4PlcmxbfBBuQz7dhX XqRZXjdK0nZHKpJHSoOKlr ZU2pkRn3KKHIgFKdfNJdWj DZABZoWB92iuUaBCOMrrbb g0B6QIkqHXTtd5RwyXRwU1 wdp1FhFVOhg24qIK1xy7E5 h1hjUMU1BR2xx1YcYPAoiM OftCFpRNPoe8Xbowqig0Lh FBGdvcKzx8KxAYVknjKplT OuMCNbxhXazf2lgnKqHTTn ULFdD0EqpqrxrVjgqhCcQY Qrgq4deaJhSSP9XYYBQEGf ABNja2ZxoR7luBJOLSY5cJ Cdee9akoVRmPPeUVLavw41 ZMWhLQ3xY6bmDESpGAKxtw ItwMWqp9JlVPHgnNR5lHSn OU3DGzKOu95pKOYgYREXdx IqSGIvqJgqwIN2llY8nL9f IChGREEpLlx+IFRoZSBGRE UnVN7gbaMfx0QmkjOhvRzh GIWxiFBhn0GlfEAex2NbqH nge0BmhSRwrRWjQW9aTSWv clxwYXIgVVRNQiBMYWJvcm B2c0UoLZLdJYAuPRL0tIqe kvl8AKSlcB5mPWXlQ4imjm uoQNviUWRlf3EltA0pdCVC fUPjn3CnlLLkoWRXuEBpQM 3evhJrEJvWGTtYARO0jaTo AMJii6ZoJRwhQ8mpK76fxR vzlXk8bRF6SIO0jA0hSgd+ IFxwYXJccGFyIEFwcHJvcH BfKBPhdGusutYkZ9DmnsJv eV5kgDPgkpKyYS8vKE5iD8 D8gIJlIFHntvVsq3rkQQlo dmUgYmVlbiByZXZpZXdlZC Bjd8HuBLxcEIW6CIfmtaOf bmNsdWRpbmcgSCZFLCBTcG DptDFqHOQ2MTjhhrMqhyMu HZ2inB3wyEycgN3lzOMrdM A3ceqzGQEkQCLsvFclVBKi UK0rdRdtzQ1mJrEwZaWqGT pyGD6dANBqW7ltsJIdDCGf CIAbC8ywRdOhhL9cwFonHM xjZjJcZnMyMFxwYXJccGFy XHBsYWluXGYxXGZzMjBcbG FuZzEwMzNcaGljaFxmMVxk XbYiGUOeTRhyA6krKhXlA6 BgZASsMrJebCGiW7htPNra JXL0HVYzUU7vwMApVY80nO Rnh8vmQJkkvAdtah3uR16q cHMkPYsokUtiRVNeb82yz0 IrFUTwpeSwlx1wKWSvseF3 pU8zBVGysVdlTXVluLAkGA Eyt2FmZWgxzEOgetLbBLsz PAIeQZHcyYAuwuL8usDdym ZwsfZpNALrhKfiSPBrp7Tj LLJjYQftt6Pqod6rjMHaII RajdMIyYfgjOPtkG5yO9Yi IQYfNPIvpl6nYOJzvD0mYM uby0VczccyGYJmLSIrGZBg atWeid9tPABldNNUHK1DOK hzzDFcz7IetkSkT6cQMCV3 NUQwNjYwMjgxKSBleGNlcH ZiKPKcbb60JIOvvT6trJys SWHugH6yyZ2pmYfqvX2dEo YzKiHwFSazJT5jNEOtV6kv wRHjBDQfJGFgA7itKdTiaD 9jaFxmMVxjZjJcZnMyMFxw YXJ9fQ== Embedded Images (test code = [id number]) [facility] [id number] 19:23:05* Test Item Value Reference Range Interpretation Comme nts Case Report (test code = [id number]) Surgical Pathology ?Case: [id number] ? Authorizing Provider: ?Dominic Keita MD ? [...] HPylori ? Final Diagnosis (test code = [id number]) r4mniLKjMEGqn4gjCCSrrO FuZzEwMzNcZnRuYmpcdWMx XWerpjIyJJnzwSfuLNV7NY UnMY0cmHdwvKv1eMxgQTDh osS3zBCwTOivp9hpZAE4k7 nftavkEFHdHPuhCy2osZWi aMsyFnNdILMrAMn8hJ26NR RcnR4pnUXaMLu8PVDusOBk ubJhVjSjIDLflVXcvBJ2CA RgUV1rwbgjJYxlRCkoRHCl aqH9GURmcLSoS1BlAOPqKH 7nbaugBXJ5UOdkWUCbRUN0 NbIkZWRhv8Tvtlx4PpCwvN FyZFxwbGFpblxmczIwXHBh piLYNxEIWM9RTJHQHRKCE7 yWEUJPZV9CETVXGdrbdOUf MMAsQFTlOEKRWM5UCNTeM4 pKXwQkNK6XJPZeLIYoqPQb QOOazvKKJuEFEF5VQQ0DNK wgQklPUFNZOlxwYXIgICAg CKVbYFjYU6FBXNFmVYBQD8 HFRXsLSNusGa5jMHNJEV8N O5xAJ1AUPEJXAD6BVAxdAM AmOMPlAPPbJF6ZSGmhSRVC XD4YCBBFRYCYUKqFIRFEEG RMWMmLOSRAL7RGUFrVISEl zkxpYPYeHr2gP0NQMOQKJN wgQklPUFNZOlxwYXIgICAg LMOqNZJBA3FIDhXNHX5UZ2 5FSLCJKKLPVK2WQOBERKkA JN4OHTZRHAKTVBPDE4QoyH FyICAgICAgLSBOTyBFVklE XD3WWYJJCxNOOLfJHJVsJY lTRUFTRVxwYXIgICAgICAt AP3RLOkuHJEPSF6PXROKBu dBTklTTVMgSURFTlRJRklF ZBIGGYYDYJ3XOo7JOYCGCs xwYXJccGFyfXtccnRmMVxz t2YaJ0QtSmDqRXvlhvSkWJ ToTbzouebfEYQbMYK9mrNn RJYzYFvvCTGbYEkwNs8qqX DbjFliUmHzENWpy1rqfhKQ WFugRhWgO113KZGlQSxyq7 dlw2GlAPIteNRve2E2VTWU jmqaeBp9s9ciKqHfQlE9xG GsMQsrP1xmnvXtnMRqJ2Lr fKTqcPh5aAnvW69vp9I8Rs hjZ5wvHYWjZXVgG7FkSB7l XYHgDha7ATV1HEI1JGXhXT HbP2YsAZ0yWRJcdARgKHv1 d4vprJpiWASkOCB0s9lmGX kwytP3ZO9etj0zxJb6f6da czEgRGVmYXVsdCBQYXJhZ3 NjgEzmJg8vwGz6zTxkXhtu TYW6Hys4ML0xks16nky7lL ilEBZqzmjqQpN2ZRrlHYIr nwuoNEv3GEcvBOUcaBN1ZN UdyAEaR2SzNXPaHN9rrra2 QQP0DTtoCKGmGqT3ERJbxS XnGQUqeNzfTVfot057EVL3 DzObPY4lU4Nfk9M0wX1swL JkIEYgeOFoXiCrJJUogz2u sNVmRFoua2ZeEHB6tyF9bN KvtADmVWGwHB04Lmjqn1Yy VkymGBU3GGTgamEvp2Yhi5 xrLpMbezDpJ7epQ4BpAUJo JSAtZOEiJiYhkuUdx7Lql9 LbuRIwoBy5a8ndUUSnNNIx gFthx1qcQVK8QFSzE9X6qW Exe4qtXIknDVEkhLW7xbJ3 UEFdwXRiG0VrdS5vXVXwRQ 4pzfr4b7blUBB9JXxaKDIb NwG5wxJ9RGEvvEIiXLCyaA ddPNbog804DKD4UrUrXVLq u9XqC4SsaFnvY41jsPllM2 1vXPLsrUsclT2tdQgyaO4y ZjBcZnMyNFxxbFxwbGFpbl xmMVxmczIwXGxhbmcxMDMz QAcwY5jiRcMtAWKuqTveEL xke4FlSSSbPGZzLnotmqRi XHBhciBJIGhhdmUgcGVyc2 9uYWxseSByZXZpZXdlZCBh sDyzf0RgI9ojSA9jV8JvqR WmwpCxaxLtKExsFXZjf1u6 sTSxlGwqt2QtrGTfOF32iv KdVHVjLYY0RUSzd1mrFX93 pgaaQdUxnA88mjZzpgUbNM Sib8heN9qhcOUbo4Ylg4Mu gfJvISyyg5LqOD1seGHptq eqaWG9EDGjkPAcduPxirX8 jVclPRZhzA7dxG8uvTsmcR 3pZbIkKiOeXNesAE5pSUHv L4qkoKRbPRRdDKMeZ5ayLv TtwD1mbWkiRkndvmQ8IARd cn19 Clinical Information (test code = [id number]) Shivani Schuler is a 47 year old female with IDA1. Gastric polyp x 6 r/o adenoma2.Duodenal Bx, r/o Celiac disease 3. Gastric Bx r/o HPylori Gross Description (test code = [id number]) u8rwtZTxWTHtgGCVTTL5HJ JrEG6sbFtouMg7uBujWLKy lxM0lMKsNTdrw5siKCP4i6 ipqqOXWoedTQNkAV6fXFrx HQIeIL5aEvMaMMHvRfDuFJ BhcGVydzEyMjQwXHBhcGVy cPD1YROuJM3vrmmoGAcvTV shRRUcenW8IVDuqJGrI4Ft YOJcDC5grwdiHTR4ZUXZUn giLe5hfBZmnUntGfQgIqCm YXJzZXQwXGZuaWwgQXJpYW c7nA4OWilyLUQ0FBNYBucq GclbrYyzp7YsvDJfSBLwAS xcaWQgNTEwMDAgXFxkYiBP NoCqGaM1Hgc3YCV5UxH6JX r9MKJVXAZuWxdqFUP2OpM4 PGt6AUFtSL2eXEuisAUjMS heOcwmEBjdJ477CNwrOIOg H6AzM6VoBYueObTgDZncKU SjZFApOTtsSKGoT1OCGNOo GYK3EmYbLUGzHUq5KIlwB1 XBRFHxWIKfWiD3EWYqBpO3 YOk2TZDKQd2jUCcqDsTdYL y7JGU1MLm4QhIoOWVmFwBl YGDfYKYvJAlbiJWuAS3qoG riDSPhJH0RHVEwWYqfMIBq BlCqM1UGP1hHFZ6kSZgfrV JjaFxmczIyXHBhciANClxw MZTbLY8LMFRnAFjwUNv7gh XhOWJdMdFcUFLjM78zd0QQ q9YsEF3ADUi9jaRhigufmY 1fBGLnnwTdKDrHsLPdyG3g ryJWQFuzKODvQ1NnayHsEG eaGXTjbh4gwJwpPUjyVeWz bGVkIHdpdGggdGhlIHBhdG cltdTfN9S0wyNcZN8wLMVS LYIwmB8fGGEvCGBfc6EciW NgbWdmO2LedFMqLbJbe7i6 nVN8YUYcgmFiLCOgfJWkNY Lfee2eATqxAfJtC8C8OPZd QWIwt61ioRE0yeIoFcHcrH f5zFBlVDN2TW4teTzrziDm s7v8rR4tZAJec8Y3LCNeq5 V8LTBysoCdiYMbePDkVLLc SD4fiaHgQK26QMGmWUslRV vjEHR5EUQ2LNRfbCJhx3oh fcmlZs0pZVsoIX8zHCyqHP 12VQMgRXxtAEOtA6SjM9O8 ITboUVSuWWZbmEQffY2lxg BbwkLagLr9TCYiCFO9oDSu hGxfEVRpAslinWT3RITrIb LbqgYqu7RsrEb6mZShZSrn CEUdnH4zyC2yZCZyUDZfwf YGSytpZPEoEShbf5HuULnj cGljWHNhMzAgDQpcZXBpY0 1oi3URb6Epk7mzvEevq0Lw eGCtCU8oqLFoCL4Kd4vtTN GezSMxEFW8WRbil6qjPOie YBA6OFEoKfEgAMBvKR5GGx UdGRtiLNt5OYceRWq6XPo8 QZ6HApSrISLrLva3RvE6Ab LnWXs6LWhgWL1PWSY4ONVm XMSiONtjAPJ4YOEnNUu6WA IgXFxzcyAzIFxcZmwgXFxu P11acVEgBVucHpJwHGgiiM nuUYMnTML9KQ0SVYToRnHj P0MLD7sFYV4sXgbrhjSsSW DxciAVPiffHHBgUU1CEVHu VHloMHi8vnPzBFKbVgGwAD OcE21eu1FKk3CcUA4LOCc6 ibByiktrgX0xEAOorzVfg7 IzMFxlcGljWHNiMzAgDQpT eGPapH0jrpOCNRbyDOCpB9 ZadrLcAOdiRQSdmb2atHtw IGxhYmVsbGVkIHdpdGggdG qiDSZgeNhcmfTxQ9A0cdMi WG6qVDIPEBZmyA1qVMYsVE SjBUGkNAPlzG6cBQY1f4Uq voRoVJSGLMRicDsbBN88qS BjZWxpYWMgZGlzZWFzZSBh odAxihCur43jlnQdy1WzOD 7woFdfGYtCRYwzFdVqSQ5b JEGhvsNlf2GbGO6sRXGzgV XmWRZbytantENoJKc3xBUr EAFrTvZabEbpv0SzORPuXH iaKM35zyKfGQ6dUZbgLN7z TQydYW6dUTCmJHBpDKYdYc RxtMAwGuRccPWjTkQpV90a QhZCdEVlx7RlL9pfFV6vfQ FuTlsbiSLlRHVmlNxmu9Dl kVOkIPIlu1NskQVzTHtuXY 9oYIP2Le8exHCqNYCtlnV1 z4TsROaaIRHgArehJJGlRQ azm0PzQPBxsPJVn4PaSG9L XHBhciANClxzYTMwXGVwaW MHv2WuNFUMVpwonTuzKjUt aMTdXxE1FCXydPSsSIK0EA 8nvNhbTFDkNOm4WGxpHRXq Z9JfH1EvLHddGeAdPDgoFA LyFQBsLWluHDJkJ5UZWYNn OXY1KpBvTXVzCEq0FKwdY8 CDZTFfFPUtOpX9LAE6TdD0 UAo1SCOAKk3pYHbhGwDvPY QrTdH1MXg1ZqCqVHIwXcXn QKXrHJEzICxeeSRkIA9cpI cuGEXkQFChTZN4STGquXVH j0SuLZCrYZbyFlKpCEONPB WQUH6ONzHCSQXtIkRbeCTd HO7IOPEvzhAtGLuhhPgelK 3ttIAcE1bgAtOdCmyedLpj TmVzdERvYzEgDQpcbHRycG FyXGxpbjBccmluMFxzYjMw JINpgKPKx8FuZIMUTlKfHR NpbWVuIEMgaXMgcmVjZWl2 NLGuwO7iVt2rvBGqpW9rvG AuGCznDXXnn4h7eVY1bYEg rAU0pKSbjNvyNnJsKG5wgC DhMKIUPR86lPZepaViDHLk wC6qZLSeYGLyBKI5gbmfPH VATVK8sRJqi4F0WPtlBAV0 sD8rsSiqRcRgI2W9XFHgXP Lsk00rnUA3fvIuHoCmRAPn ve1izW9rKXmusbXgaHneqq Cqf5M2AEOpc0G2ASMapiFg zTDsmTJfLNTbEwI1ODPlOq Q3RHWaXSTikIUnVJVaAW6w VGhlIHNwZWNpbWVuIGlzIG WzfLMnsbGvTQNqay59C3uh LJXnyY9nj0gmZcZoMZGpQL MwzQUvtBF1JZUciL0kgM41 beSwmqQPHT8jxLNxML8EAI NiMFxlcGljWHNiMCANClxw MFObFCbff1CqWIyksIjwLM IdAwVnGVnOgTheJIWBG0ka kNQxTNtjOEIQRVyJT1AFLC 5JWRFlzBKTXRW0YE1wLHjy PRNoP5DzB1AlrgV3n1tgxZ tbu5CscWNxAV3srBXvKU1X XHBhcmQgDQp9 Disclaimer (test code = [id number]) i9ayjSIwUPAsk6apGMQguH FuZzEwMzNcZnRuYmpcdWMx IHvaqcRaZIlvy2KgE9NeVs AwMFxhbnNpXGRlZmxhbmcx UAFoSEB2opRjJRXiRRagWY AvFTizVr3vuOFspTwqZgGd KPLwn9mwbeFLPFfyNcQcB7 06MEQySIoxn1zgm2AuHQTr lFCtu6N4LDAXzbrmaBt1kD bcG81sk3O5MwilF7adYGAq LDQeE1PxIA0nNAVuKuz9QU I4HIF6TANbPPRmH8ZrTK2u VSCokZVaCBi1x6xuvDqzYY OrKVL8u2usOBvjroKvHL7e lz7urAj6d5isapYlSICwPX KqeQHMJJSyZ2NnzHatYe2m uQr5xLqrFbykXSC0Hyw5ZI 5zzq41zfb6fFxfRBCpmbqu VjL8LItgRDSohpxnOUu0IW oxSSNyrTS7HJXvbLUxX1Pv JGIwDV6jivm0FAP3JPxdKH CrLaS7YDCmgSAfCVGgmIga VYaxl480PZK5LyWjEF4oS0 Bou4K3qF5abYDbNQFfbBUp PsZpCCBowb9dgELfYVzzn6 SbCSH4fwF8sOWcsLHqUJOm MT18Ztqxc7BcHvuwf6NdR6 9irQJ2MPbgg2tsSK8mXpD6 geGxWMndm0wmmJ6cNfT5SC qjZK9yIK6jXKEsqV2jmdmp XHBnYnJkcmhlYWRccGdicm PzPd8ptCapULF3WVjcW2ko yB6tUpN4VGulM2myiE8xEN m5WPxxlSX1KRYfeV0zNI6a fxnah6zjLBeuDFrgJVWcbv I1smD4RQGecWZxX3EfcZ3t ODXxQR6damwah7xkJTK9ZH zhGIOlADN3NvOuVKSxe1Ki fby7QhBbw7EtoOAzJQerK9 6ok204CDMqccFcS4nsrLOu qjcwgYOmkdffBBvhmcP7AL NpvoVgi0BgWMItARN1GOeg IYfpyEUeYHMdoNish8yoI1 RscGFyXHBsYWluXGYxXGZz MjBcbGFuZzEwMzNcaGljaF hxHPpvIyNqEUEnKVpaA8pl RgEvA7JgSAQtApScvCPgU9 ggVGhpcyByZXBvcnQgbWF5 KAqoB1i7DAWtxqPsxEo2ta JuQvQpAMGgMIS5YDulqOAz LMJgr2OgepkkzUZrMi8gjH HnJRBooQ8zWXLxGBLsQXwh UB3ofZz2DMIVaYKcoGHrXz GMOVXxHN63iqMzJTAUftbw h7L8EUesHBJgl0FlsEFhP7 glh9CnMGQql29qXV1iv4V8 q6dzFGX1EM3pv5MjUTOmjO HcsHMeXGOgb8Cxtodrc1Ho GUWckaSnt8JoFVClvmDydF HuUGFuwaMjej3kpoPgZHWn LPSoB8QacdhyrOlyasTiDO Cxub7txuUfLPQ2OJGBDCMt LSGrg4ZrvG0ijHAROLP7tL Mdow6olwIZkASwLJRctb66 CEFoXP4rQ1jhWQHtQDFcbt VpnZWyf7WtURHqnTH2sPKz RI9RFaXDf75wYTGfSZSXjn AyJEAddPlztUP6ssK9gP7g IChGREEpLlx+IFRoZSBGRE TwRI5fapYme9SqblIlqNgs NANafLEmb6GdoXWsz2YwsJ kbe4TcdCEdnIIuIO7zHTNv clxwYXIgVVRNQiBMYWJvcm M8h1ExSTCaSNEbZUQ0tGfn ntp7DCZdgD2nBNTzP2uuaz iuZKpwEDDpb0ObmO0pmERZ zTKjv4RexDWqtJADpGVqHJ 8mxzOmGOjHGOkQSEZ9xnJm IIZwp6WsTDjkR1rnV34olQ sttPy9dQP1NMY5sL4mKkb+ IFxwYXJccGFyIEFwcHJvcH SjUJTvcPajkgRpV3CkboWh eU7roIWkytRkYR7sMS3iL9 J3eVPbXVAtsaBcj3dfSEpg dmUgYmVlbiByZXZpZXdlZC Vvf9LkRMxhRTA0MJujogLy bmNsdWRpbmcgSCZFLCBTcG VnhAKkGKN7BSugziDfgaGo ZH0fuD9ccYlqcR7zwRTcbS O5ulaqTGTaPRTjhUohJWWn UY9ekLfliM6oVaKvWgQlHI sfFH2mWBOtM2nvsDDsBPPu SYJuO6goCgJioC0bgTblRY xjZjJcZnMyMFxwYXJccGFy XHBsYWluXGYxXGZzMjBcbG FuZzEwMzNcaGljaFxmMVxk KeNqQMPnUDyfT8iyFdSdL9 BnLXXkWjMjxXJtR0jiNFxs ZVJ1CCNzES6ryWHmBT87rZ Loh8mfJAlfkFddqz6zF02h pYPiZOxvmNetVSRqz12dj6 HaKNXmwkNljs0dJNRbgpY0 uZ0lHKAoeXbkOPIcyLHoUC Aln4WeXLkebJVqdmWoGQji SPDmBONtfVTbqkU9slYynq YqxtDtDWBoxIbvNHOii3Ad DSNhYLovc7Asww0arVDmAA WdimBPlZphkFJxhA4rE6Ui VLWiGVZgrp7vDAQwfE7aUW sgx6GnncnlUZZlFFXhGOLd jmTxro3gSADwaKMFGS2OUO njwPVey3XvjuVlH8eNZQN0 NUQwNjYwMjgxKSBleGNlcH EcZSCacp86TRMomK5boBfx QWNrhB2wgT9hcTjdhN9iBa HmWtQtTChmTV6aBFZqY0ru mGHmEFVtQSKeS4wlCeRpmH 9jaFxmMVxjZjJcZnMyMFxw YXJ9fQ== Embedded Images (test code = [id number]) [facility] [id number] 19:23:05* Test Item Value Reference Range Interpretation Comme nts Case Report (test code = [id number]) Surgical Pathology ?Case: [id number] ? Authorizing Provider: ?Dominic Keita MD ? [...] HPylori ? Final Diagnosis (test code = [id number]) r1nqzNSbHMZin5xwBYAhhQ FuZzEwMzNcZnRuYmpcdWMx FHnqoeFmQMwvhNsoQSR5TU NtVP8xkPpqjTw3pVzuVVEm tbC2nOKuEPesp7pdLLK3l8 pmagjyCHVyGYolAm2ifSYw pPhmDjKcVFFvNQg0rL93VU MpvK7dkABpHFz8WSGyxWEz bqQuAcKqHRRumMEjcNV7NG MtWC0mnljaHVwaTZcsZYNq htM6QFCwwSOsJ5AuKIUgMV 6dkhksDGK2VFfgGGMpVSZ8 KxJgQDOdt6Ahdth7ImRchN FyZFxwbGFpblxmczIwXHBh xfTTSlPDZL0ABLVSIBYJG5 uEMOKKKB7ANHYSDyrxgKIq XZVqJBIaKUHNXK5PLWDiN2 gJIvRhLR1GGUMrCJBkaYQo AVPrphNZVnCAXI1SEY0XXU wgQklPUFNZOlxwYXIgICAg OHEbNNtUJ3URCQPoDKXYU6 KATTnXPUefMa5rZQRRCG8C F9uFR2TKOBYCCX4CPUtaYY RjOOUdANZiBZ6UJYeiRVDQ UH9MWCLWVKEEGAgGTTHYVW UVHLmJUEPNS8HXGWyXTONw wwseEQXoEc0gY5CJKSAYMU wgQklPUFNZOlxwYXIgICAg LMVsTZBGX1JCCpCDGQ6VC4 5COPLHOPVRFS5BTILMVVqL IM3BTKSXJHIKASMWV5XjoO FyICAgICAgLSBOTyBFVklE OV3WIMTAVpRVAClTCWUkWB lTRUFTRVxwYXIgICAgICAt IH5LVJiuRIEZOV0LVQIKXa dBTklTTVMgSURFTlRJRklF PBJCCUBPLT8VTz0IFWZBXx xwYXJccGFyfXtccnRmMVxz a8AxO6EzBpPmUAiasvSeGW VwVbkgenbwRTViHXB3cpVu ZTRxFXsqNZNcRKfgQt5qfB NcdOlyTvXwEGQll2xvpjMA FVahHxAfF213YRLhZZjap9 zmu5FbFJAtwOLte9L2IIKH zdlalOy2y6tlFaTrEgA2rG LdWWsmY7rxjzDbjMPbX1Sp nYRheMs2qOkeG14sm1R0Gj hwT2blCXClTSEwV6AtPT7h GYUyBfz9YAI2VPC0IZLeGA QyE9JqKQ4qBMVlwMHdEZp7 t5sbyJbuUEJgSKD2q3tbNP ivvcU1LT0bhh7puQx3l5bs czEgRGVmYXVsdCBQYXJhZ3 RxgWpgEk5gbBv1hDhiNewp EEJ3Vig4BU4ucd15abd1kZ gvCDDcgndcCyV4RSuuNLBt xcjcNFo6ZSeoFADraLL5LP EdvLJuP4WdDODpLZ9vgrm8 UFG0EFycVCPlTjN1WAYkxJ SfPJGkcXrpTScvq496IFN0 EkMnUD8xQ2Snz1J3eD9gcR RqVTAdjKWvSqCpBGHspw1u wHLySTrkh3WwIDR6pkM0mA HffFMvYMSkSD22Ufpfc6Rh SgvjEZD6REBppkTgv2Yfd7 tiEaYzanSzP9omN5RnJBOo OJPtBDBwDoWxkjYxc4Xso1 IzjXJrbLe3m5zzVXKiFUQj sVsnz4dxRVR1EOQgP6A1xY Trc5dbBVvwHZDbrUM2buY1 WEXtsKNdI7RhxR7nCSFhXY 2qlnn6g6jcYEO8WMmhVHMp XmV8zlL4JGJwqZLuPHCsoW teOIdhy909CDO5QgWfMHGv w0TqU2MqeHpdY35ocNxcI6 5sNDRvfRejlN1asLvutZ0k ZjBcZnMyNFxxbFxwbGFpbl xmMVxmczIwXGxhbmcxMDMz GBrlF4ueXtVcNQHqeGukWR qis4McDWRgSHZjAtankaOz XHBhciBJIGhhdmUgcGVyc2 9uYWxseSByZXZpZXdlZCBh hJzbi0OfE9qmAE4eW6HbvX RxwyIrpxIoXObpYJGtk0b1 pOOcaOmpq7LmsMZiMF19tf PvVJEcLSW4QOTiz7knQZ66 viseEqMioH14dsXhamBpLU Wla4dvL8stjAEev9Jjc9Ak bsZqZYywx2NgZU1epNYpjt yjoMS4BAWxvPCfjmBkgtT1 hLcaNBJyoW1vfB9ecAuyyZ 5jJhGpQrAwQTonUP7xVMNp C2lmbWToKDIyVEKhX8xmJd DndW8dkYgaOfdaghC6AUOe cn19 Clinical Information (test code = [id number]) Shivani Schuler is a 47 year old female with IDA1. Gastric polyp x 6 r/o adenoma2.Duodenal Bx, r/o Celiac disease 3. Gastric Bx r/o HPylori Gross Description (test code = [id number]) c9aiaWEjIVNaaOFZSSG9AF CvRD2phFzljGx1gXkrGTJw ruN3aQRwHCrtz6hdIYL0n0 whbiUOUdmqGRSkSX6qCAlp OFUqFA4qMjXvQLAaPrQzUJ BhcGVydzEyMjQwXHBhcGVy wIR5CKBhKP1dmxfzDTfbGM jjMHXzgbR0JZFciPYfV8Xl IFByYJ6aoskiMXY8WIYOJw zxUe7bvRSpoUwcSyMlFhVn YXJzZXQwXGZuaWwgQXJpYW x9uJ3ZTvryUOB7KRBPSxoc PmadyJfax7TpuIKeOBWzGQ xcaWQgNTEwMDAgXFxkYiBP TmEkXeO8Fsr7KRJ7IaF8MU p0JFMLAZLjLcliNUP6SsB1 FLu6KUKyBQ6yUAfedYNzGB cjGcgqBZdiV511IYraECOr U7PsL4DlNJhjPiAfHGnvQD MrUOHdOZdzLPFzB7YNGOId ARO1FcQhUQKrVLe2WEdeC6 GJFMSjDKYtHvF7WFJzGiG0 SZp7UPCAEu7lXEvwPaLeMZ a1UDL3JHa0LiMbZBNhUjYg OLGfBSMcDVsxyIZiZP7lvC mlPLQgME4CNFUkJHerTGWh PzRwT9JPY2sSCX5pAJowjK JjaFxmczIyXHBhciANClxw CDDwJJ3PBZPxDUzwFKj4ra ImMMSyRxYvUMDjE14ft7KP a2TvUS5WLRr5jwUzkehbcG 5sMIErsfZlLJrUdHSzrE5i gqMEAMmfGNOcK2RhijLxEL crJZCnhy7eiLnoHTzqGgXk bGVkIHdpdGggdGhlIHBhdG gvqhMgF1U9gyOjWW1iAFGR RRQguS1pHKNvNNBdv4TxrA GdwQvjU0PorYNxLxCjl1r7 fMS2VDMjxmDcVJSqcAAhOY Lzsc2nGUttWdVoL1P2YJTn TLEgx61dmQS0hqQgJyXbrO g1aLGcFSN7IJ2cdOviirNf s4n0oP8tOQYgy6S5OUHaa8 T3DIFodwHopOVzdYEjZZOy BS8djoTxIS61AXNmVTwyYW krGRQ5HFR9YVXpmUOlf4na beyuYa0fXJhoFN4aVJsgKJ 39LDQlLZgiEHCdJ7GkV4F3 HCzsQXNrMDXjwRVfbD2cxr CfvoOvvWt9BGYdQUA7yJMc uRvcFUKkJleqbJP4RNNcWv UzzdSnf3ZfpGm5bBSqEPyh SITpsU4nrG2aJUHtIPNfku IPVziwRLHtGDgek9PnGZcz cGljWHNhMzAgDQpcZXBpY0 6ii0HMc9Jvu3lbsYmvl3Xq yJGpVA6qsAPqCK1Dl3kvIV ZjwHDhSYP3ZErxh3qxKNgf HHZ1OVZgRhQtHGMsMT8WVy OvKYomNSa4JWxvCZd3JPe9 GE6OIdGoUMErElb5WxS6Et BcSPd7UDevAD3TMGG5PTCw BEQkXFdrXXD8CQXqQRu3IP IgXFxzcyAzIFxcZmwgXFxu Q45skGFhTFfnLeVrGZhxxR rcQHBiCED8YC9ZQXMpSjWl S8LCV4cZVN8uBvubjwXwTG PkdjUCPaiwDJPwHQ4XQXKg TIfbMRi4jsDeDELdIgExHS EbQ68ky6APa5VhAB5RZOj7 voNkkakxeB1uTYXhecQld5 IzMFxlcGljWHNiMzAgDQpT jHOccZ2sslFOLZuvDCReI4 DkaqVqVCxmCOJixz2otCza IGxhYmVsbGVkIHdpdGggdG tnTDYjaFxtkhUcC2S3wnLf FC9gLMLCIKMdeH5qUKWnUV QeQCYwABUhfV8zXHQ8j8Pw dxNaXIGCIJVcnUwgPU02xR BjZWxpYWMgZGlzZWFzZSBh uiVqseRvm64lqbElx3AqWG 2mbPdzDSbVWQooJhDiGH3j ANDwuxNxo9TtQF0wRDNaqU FgMMFletancRPgQWq2lQBz SDGhGvNesSgio0QgTSBwSC ukYS33iyQsXP3wOTqnZH3c JUhsPI3vFEBsJRXhCJPlWq JjxPAuYxNqyVFzTxMcQ72r HvYPwFUoz3GvL8jjLV7dsW EhEnrxvJLmBCSieJild3Lj iBPrEOLof7WqpWSxYMrxNX 3cXRD3Yf5kyWLdJHMsciA1 i5EtDLrbPBIpCyrrEGVzBR apu6QpHOVwkXMPe3NxAN8M XHBhciANClxzYTMwXGVwaW JIx8RlRCHERgabaYziXpRz pCKyPjR2CZQiwXWoKHT7XI 4uaTaiEYDqINq9GYywISWw R6GgX9XxNIekAtFqLOykBE AvDGXgKHfmVGRjO4AUVKTu HYA0AgQpBBHrXCe7CFfnO2 ZHYQDjRGAcGzN5MDC5MsX1 WIx4RXIYQy7tTUslDaZzUG RdUpS8XEv4QxFzDYGhHeQv YMAfQYFvSLfitWPuQR8ijL fnPLAwIUBsOWN0FBGeiJNE q8CdUVVzRPbjBtVzANMANI ZMXJ0VSvAJGOUoDuYdfFVo JS1CUFKwtuYzWLwfsUlnrT 3qaMHzA8lkZaRmNbaqfKgy TmVzdERvYzEgDQpcbHRycG FyXGxpbjBccmluMFxzYjMw MRAcjMULj6IuBYAGJwJbWO NpbWVuIEMgaXMgcmVjZWl2 MESclQ1fFu2kcTZnxN3dtS OuHLlhCBQwi5v2dIP2nNAg pQG1yTCglRdwEiDoGZ9orY KoRILDEK81mMUogkXvZIAg cY7hGKUzTCAqKMG7qxstNZ SLVAA2nEJsk8W5MFtaWFB5 hG8dpGppZvZoZ9O9TYOmMP Bnu34gkUS8peBuPoJwPERk uv7guJ9hBQepulZghWgcbl Dia1C8UVUje6V2VSYmbpDr iDIyjRIaESRkPuB8YKHxGm G1QNKdPBQqgHHrXTYhXU7x VGhlIHNwZWNpbWVuIGlzIG TzrICmbbUnOJTgqa66X7yx NKUjxS5my3peUzBmGMMyBE GbbQUygJW6WLWmwS4hkM38 coOuxkITDK1dgLWnGB4UOS NiMFxlcGljWHNiMCANClxw IMApWOsnp3LoVSdylMgoNM DuBiYiOXnYhLhgAUVVW1sf nRKbOKvuDQYUVUuOU5WWKS 7CTHVkcUEOCHH9JE5cCGxe FOCwC7EuZ7EijvB6n9kngP srk3DaeBDkZB5cqYCbBB9M XHBhcmQgDQp9 Disclaimer (test code = [id number]) o2udqVJlFFTgl3fdQZJxyZ FuZzEwMzNcZnRuYmpcdWMx AKvtiqPwLAqjz7GrY8ScQu AwMFxhbnNpXGRlZmxhbmcx GHAhQDM5pvJyMYVqTJkwVT TlOLpkCv9cjVBizRmgRpOi JNIlz7sxauFHPLzkXmXlC7 72JIVvBRqwr8ziw9VxRZZh nRWgs0U6UMGWemposAh5bK mrD31qf8U0GtjsJ7slAENs UNNrH0MiZZ5hOKVuZpa9RV C1BVS2UXFpPWWtL9KbEF6e UALhnSIzBIf6k7xkaXflOU CiTWU6v0zeWWvphbZmKZ1q wr5akIv4e4hcojEjKTNyAU YspTFUNFDvD7YgcNxoOr9b vDr2sNovXpatOJD2Ebu9IV 1npy66esy5pWnyFLZsahvi OeQ9TQirKWXeuyysQVo6PY cpKOHbePU2BYFcfDRxM9Zn RUZwTD8zxul4APH0WHccWH WyUoL8LVTxiRDwWJRmfBun SBsgo416GEN5ZuZnKL6hF3 Ayg4K0tP4vaRHuFMWhbFRb SiRoFDTkca6zbBUxXIztm2 JbMIQ8jjH7jONqdLEmRYYd RD79Ilscq8SaEknml2BqK2 3nnJX0HJyrp7tzOW3iVyY9 wyMrSKsml4wtdC7rBwT2LL ayPI5yBI9nOBAuaP0llyrk XHBnYnJkcmhlYWRccGdicm SqEc6liDflGRT5DSjnR1do cA6uSqT7QBwjU2obsM6cXO n3OEzcqSV3XXLkhZ1oRU2y awmtm1tpMQnwGFnjFGZpzi E9vgK9PDCkqNFzY0WijJ4a CADwJD0magkyf8utHPB1NZ vuIAIlDRR4KlZkVNFmq9Qx uqs9InHxy3YjaSVlJWsnS5 7cw277YLYhjoOeA8vpiRNn pknshUHsssetTJobhrF1TW GumrYyc6KfSVZqDGC4AXzg WDpzkTYzGKCczEgmy8cfM0 RscGFyXHBsYWluXGYxXGZz MjBcbGFuZzEwMzNcaGljaF khKWecNkPdDGZaPSzuF8lf EwMnR6UlCQLkFiRywITqE6 ggVGhpcyByZXBvcnQgbWF5 CBbaV7v4BTLehbYvnOv5pw UbDgOsZTYaWMC3IMencDMd JZUed0BmmzxjdFXvEw0xlF CnWFGknY6aLVOxDZZhDJsz AG9fnEa1HHUTjRPboVJnCk HNBIZhMA56qxFdNATKvncv s8X0ZWptVAEcs6ZhhBPmX9 otz5TqHRDsi96gSO6jd4Q6 o4lhHMO3XO9nn3XlBSIcoY ZitAHzQTFds4Ylwnyoh1Pl GZGpkqStj2UkCQKlyvRpgY HyBWObftLomf3gqbLuZBAa VIHlN0LqclbspClxawXgBP Qhvj2ndpCzDKV8CEXVXGIj QNFpu0QmwD0byYWDGPE5oG Payd2zytWJtWOcELJfnt42 OWVaTM0cY0zsIPVpQVKgst GslEOkk0YiPJTcvLJ1pCNv GA3GTvOGl13vNAIkPUHBno UuOZZkeDnwvNT6qmC4dK7w IChGREEpLlx+IFRoZSBGRE JyYG6dlqWoj8NtggMmtAvw UIHxfPPhx4LyaTHch1CzwX xtn0PanYCyuSUqRQ9vQTOi clxwYXIgVVRNQiBMYWJvcm M5j1RvLHHgMCJiRST2xUuu cfj1JTBpaG6lXZLrA9nxuq qxDAgfFMUer1AfvN2bjTVT kNUac3RlhLJreKCWyOAoMW 0rqlCyGXyGXNuDWDT6vkKc FKHxn3CdOMokK6scN22xbX mrtHj4tDL0NPH4gP0iEch+ IFxwYXJccGFyIEFwcHJvcH OrAWIbbJtnuoLtL6OjyiVo vR3mtEZnihNoOM7uNW8gV9 G0gSYdHRIoteBes8ojOVst dmUgYmVlbiByZXZpZXdlZC Btg0TtLZvbJXO2HCrnhcPe bmNsdWRpbmcgSCZFLCBTcG ZekLYiULZ3RTpbewFuskEd OX4baE9dvZpiwK4osACatH B7kebtNGNwSDPjbFfrMOQp LX8qlGjpwZ7qXyPqWnKaTV smET7jDTIiW0hazFJpOLPt KWMoP1ueBcVxtJ3euMjqBU xjZjJcZnMyMFxwYXJccGFy XHBsYWluXGYxXGZzMjBcbG FuZzEwMzNcaGljaFxmMVxk EfIlYSDfFXfaB2apZhYoK7 LhWWVnMdJseSVhL3rkGFxj RMZ8KLBqPT8bmIHkYS20fL Rhb3mjHVnpwZhibh9bV85t aBVxTJqyzMghJAGtz47wa2 NeYKCaiiTlmn1yKOLoyoW8 sJ0lCAQhjCpqSBIkpLQjSO Jxc7HdREutrMIlgfRhWGwq KQPqGFQhbTMnnfK7vdPfex OhnzRnGWTumVviEEEto8Fh IKGfGSeyo5Geqv4cmGDuOE NtthGNhDkvtGNklI5yC1Mp CWJeZVNtsz2fMIIowN0bUV qoz8TeuaqwCCToLXOfFHHg byBrim7oXEMceRATZT1JYE vwiDDls1EqpxGcD0tOWHM3 NUQwNjYwMjgxKSBleGNlcH NwFFJwcf23BOPxvY6mjNmb POXwyA7crV8fmGbfbR5mLi OlHdWzUJwfWF0fYLNxA6ax bVHgMUDnXIFrS5izKxXotV 9jaFxmMVxjZjJcZnMyMFxw YXJ9fQ== Embedded Images (test code = [id number]) [facility] [id number] 19:23:05* Test Item Value Reference Range Interpretation Comme nts Case Report (test code = [id number]) Surgical Pathology ?Case: [id number] ? Authorizing Provider: ?Dominic Keita MD ? [...] HPylori ? Final Diagnosis (test code = [id number]) i2zpyNRnAKQqp0mxIYIsrL FuZzEwMzNcZnRuYmpcdWMx SGmeheIyJFmerMgcGLT4LI HiYT2anIpghHx8yCqnUXTf rhR1qGKfUSnwc5gxCPS7s1 kaduetCNFcNRslKt8nbPSk aFavAxVuWJKbYDd5lX79LL LruU1vcTGwOMs4YKEqgPBv jpHkNfDwXRDlwQIrnWE1ER HoPK0umpsuNCzwQAtwUNKn lfP7LVMneFJzB4VqGTVhIM 3pxrvpMSB1LKrvLBIzDRP0 TiFfQYMjy5Cwgwd9NaIveE FyZFxwbGFpblxmczIwXHBh odAWFjPRRB6BRCNRPVTNK0 lAOOQCZV1ZGIBPZifzlBMo LXGxSHFoKZEFKM1NQRCyJ6 zVNbPxQC0KIVLdMMJjxFLn PBValfRGIlBTDG9HWQ9MQK wgQklPUFNZOlxwYXIgICAg XIVcOGkCO8MYDFHgXGSPC6 HEHVfWVJetSu1dHNRKMI2B T5hAD4UUOWPIMY6LASjyYF BcBNWlZMCpDD4EHVegJEPU XE0WITXHHWVPGMhGHVKCIN WYADsHGEDHQ7WSFJuWOSKl fgifTEPwVu3rN8WFQFMGNM wgQklPUFNZOlxwYXIgICAg NCBbQTCNS9ECOpVKJK2SL2 2WJWDGGGNVWV8NKRTPOLuN CZ0EZUUWOGYLXNKIS4VjcM FyICAgICAgLSBOTyBFVklE FI6DPHFCLkEVAHeVZQXyXA lTRUFTRVxwYXIgICAgICAt JX3PKRmhIODTEH4VADDRTu dBTklTTVMgSURFTlRJRklF XMKNPPUALP9VUb1UEQYPNv xwYXJccGFyfXtccnRmMVxz x3HyI1OcSvWdBXjyphMbZW IxOznpssjrVRNsEXS6eyHl PJFnJQjcJCAtDYxuOt9azJ DakBliTgAbBHMfy6hrgtDO CCmwInAxB646IIWnGAstx8 ddz8ZlBTKemLViw1C0FHGR plctwMr7l2ocRcFvJwZ0lN OcDMkbR7suezRkrUWlH9Hw pIEinNy1hQhbT32hx7O8Bf swU3yfNIBpABJtC7ZaXW6c UZHpCld6SMW2UFF1ZFNmUC EtR3BcHK4rTEJrfCEuTBu3 c7hxzYvaJAKdPBA6i0mfES mwucN9AE6uwe4afRe5w0xg czEgRGVmYXVsdCBQYXJhZ3 EdbMxqSk8gqWy5hToiLzuj YWZ6Swy5GJ6eue63ogk5gC gbSJEuezghFeJ6NBrwJZCn ehrxNMc1QMwnCARfoRK5ZJ RnpNUyA7RuDEBuIW0clyz6 VXY9CWsgVYFoApE5EAFaiN GtOGNwuPfuXMgxt650GJZ8 RpSdLG3tT7Zvi8M5iD2grM SaXXEycEElVmWwDRIfop8i kISkSOmfn3NcJDW1mxE7vU VybJZsQBSrYO78Vqzdn0Lh DqjaZSC1FSRqjkTnj9Qyv1 xhNtJqouQkK0ftB3CiEWCe YXKlSWQcWbIhyiMlp2Kye4 FkbIFryYr8u2ctZQFcIWDk oTloi2phHBW0GXPnZ1V0mT Qcl5ujEKfdGFDenXI4aeA1 LYTkgHMhE0NbcZ6tVXAnZR 5iacy5v4chXFL5XJoqEXOd TfJ8yaO0KZXtnNQxJGAwgX jmJZena843IIF9DxDqJWCw d0PhX4ZcwHapS27jdCihP1 9rJTLyzKpkwO1kiRuljB6i ZjBcZnMyNFxxbFxwbGFpbl xmMVxmczIwXGxhbmcxMDMz MGgyF8qnKsSzZSAatStwIS svd1PdNXXsUMGzIbcqjnSx XHBhciBJIGhhdmUgcGVyc2 9uYWxseSByZXZpZXdlZCBh dGkfp9UqQ3rlSL7pV1RlvF NmxiThgtDqMUhaIOLkr7u5 bIOuhUzpy5VcfFHuRC98bc XpLSKdXQK0LEEim7ddNF31 qejaMqAqdX70ilDwisVaJB Wrs4sjM0rlfAQdi8Fiy4Tq ogHyPQvti4BzLC8riWJhtf oawYS6MNDhkVNgihLtiyZ2 bEkaPTBuvA7tjX5mvOrfdT 0bXrXrOsSqYIppBV3cZANd V5ixrFHwYLMvGWVnV7ahNy SeaZ8yqVpqLwdxslX1ABEc cn19 Clinical Information (test code = [id number]) Shivani Schuler is a 47 year old female with IDA1. Gastric polyp x 6 r/o adenoma2.Duodenal Bx, r/o Celiac disease 3. Gastric Bx r/o HPylori Gross Description (test code = [id number]) e1yrhSHhEDYxxUAUITV5EY ZbBJ4ddWtptGr6hPymMFTr iqS9aXTeQWsud9rgJDI7h1 lizjNSZoiuWFWaVX5zWMms JORfRI7lIfAfVODtPyTlMK BhcGVydzEyMjQwXHBhcGVy dJU8WULrQO9ipgnqZWkrFQ adMBDmksA7PPXcyZJzD4Qo CJHeRB5amkdoNZJ5NREYJh pmPp1mbMVupOmyCfLqXcVk YXJzZXQwXGZuaWwgQXJpYW x6oL0FLbboYIK4STQOJjkk XlwnoJzvk8BegWKbSIFzSE xcaWQgNTEwMDAgXFxkYiBP SlKmXaD9Cec6CDW3QpQ3VK x2YGDMDFFtBueeHRQ9GwV6 TUk8BNLtGR8rXWpgnKDtTT bkRshpQSmqY658RMwcGKNm H3OvP4AcAAclOvScPIatIN OqZFXpRKssBXXzD4LHHPDg INI9IcTtEYKbIXm8LHqnC0 OCSFIuYFSdGhP2KFBfBoM8 MAb2LCDZHf9xDQaoVqNkFW s8FMS8XJz7WoXcBMGoEvDx GRVzIOExTKvqdFCzDL1xpG zkSXVvEX4NNFIeVKkiNHTv UfMeV2IOA1ePGM9kJPzvqE JjaFxmczIyXHBhciANClxw VVLzKL7MRELkSSerBCm7nj JuTWIaYrNoERRcC82hy7JM i6EwUY1IGQq3fgCjasawnG 4qCCAetoRtUZbRmIMmpK7l dwAVQVkoFYRdW0VlatKjSR jkBJDuim0pzQumAAieToXi bGVkIHdpdGggdGhlIHBhdG kfydLqF0C7ieDqCM7pALQA WJQfcI3zQQWbYQLtg4VlpU UiqUsdF1QeyUUiQmXll8u3 rCY0AYUrfkFsLWThyPKpPS Ylib6kLNfvYyCbO9T3GTMn EHWeg20ciRZ4pgRrSwVgyU t6uOEqWYX5BY9paGcnzbRk n6n7gK7aZMFbc0G5IVRvx7 Q9IJPuboIddLUbeDRqXCBz RU2xqnVjFO43OFIcKLwgDJ zrYYN4LFV4AJFfeTHaf0mb tghtPr3oXLczAB1uHKstGM 16FTYhULftRRKeH7AaA3L0 TSdvVALmDQZyuAVoiN5mil KkjcNauZp1NDFfBAR6wEBl kNqkSWThWbrejSE3SOQqJx DawgJiz8PstHz4hOCkVTgj SFVkfW5dvA2fYUHeHBYgoo BGZgczEYUhTUdpg5YvHMmg cGljWHNhMzAgDQpcZXBpY0 3tt3LAv9Zhw4lvzQgnu5Eh vPSpHN1acCNbMO6Ml5xmGB JjdPTmSFJ4CDfgb2csJWvm ZCK5HDKnAvDlNVAkRI6PAf HwPDosJMo1LLnaKCp7TAk0 QU2RDbTnCVYxIyy8FkJ3Fy UrDUy5NWzqYK7JNPU3KXIy YHYiQYfhVEU2GGYiHUj5BB IgXFxzcyAzIFxcZmwgXFxu A74jmYLtFIuvXeDrWDczgX bkGMVdZDT9XE7RCMYkIaCu O1QYM5gDFI6qKaawntPmGU CyomUSJbnhHGYgQI3WDRUi UPqpLCi0yxIwZBHbIbDlZV QhJ60xo9DCj6LeHA2NBTg0 kwUhvxvgrP2xFORboiVle0 IzMFxlcGljWHNiMzAgDQpT aMBxdJ9yrzUNGWpmVQIuW2 OctcTbIUzwYBRmks8ldBot IGxhYmVsbGVkIHdpdGggdG mzADEzdQjdxhIaE5F4fdKc HN7lETDDRETziF9sQSSdAE PvBXAzAUUewL1sYSZ0j3Ic lcIhWLEIBSDesYnvHE78vZ BjZWxpYWMgZGlzZWFzZSBh aiGmmsBcv17xtiNwo5HrXU 2ihHhcLVkAIYfpSyCkUV4w XPJmffEdx5WjGP5qHNTgrM TvYXCbvjcpbSOkFKx0nYCq DLUuBmUdeImxw9CqPDOtDP upBB63hrOfZF0aDDcpVF3l XMyhHS6uJOMhVDKnBVQkDl KkqXNeKfYzxROnHnRbB62x FqLMqLCuc5JbX3imNU0otL GhWfifqLYgVWFslAklm0Ai aJJaUJYll3JnbUJzGDjrPV 8jHUC3Zc4kwGIeYKIzttL2 k2YgHPbjSFXgAtmeNJNwCX kcd6KjKEDhsOIVa0KwYV5J XHBhciANClxzYTMwXGVwaW DTn4McMRXWAhltaFqqJsPl oNSePnB0SNPkrFOrWJF1XG 3arMloILDnVUe0MDdeRXUf J5SiK9DmHIskTqKoCJraZU FrTDIxPNrbEZVxW9MPMQSo QSI8LsGxHYKyUFt2NEynP4 JZSGOySYWfDjA8CRY2SgU4 APs7GNMWYw0cDMgmZrCjXH CpLgL0EWy0HxJhPTMeTvMf IHLnDOBtFFbeqGPbPJ5ogE toYPJaSTUaPGI0XTXbxYUI x8FfZXNnUWdcDpKoRLNYQF JMUC5VHqARTLFpPxWveWVe PI2JNUUunuQhCQgmdHgydG 5qqQOcE6zfDeNjDrazdGlb TmVzdERvYzEgDQpcbHRycG FyXGxpbjBccmluMFxzYjMw FOPxxZTUx0ZoVSWLBeEeGD NpbWVuIEMgaXMgcmVjZWl2 EZUmfR8nRz4yzFEajP2bdM HjEEkoYBFrb4u6rPQ9kPMq hDZ9hWPskXzeYtFrQF1yeT ShYDKMPN38fPWeieWlMSEg wG3fHQWoZTCqTET1fzvwWV AOAFA9nZTge5X5BWqeSPN2 zJ3jcXwgZrRrG6C5LCEwVO Amz10rzRE3gnRuTrKtHQVd da6hiH7rJIamdmDskIetmv Ihy7Q9NUYib3W9JIJmzdFx nSSqvITvTUOtUiD3JYZrVz W8XILhAMSqsIBrFKNeIV4m VGhlIHNwZWNpbWVuIGlzIG NijOCroqSmYFZlzp68C1iw HYYvuJ4pb5ggIrXcJGJvTP IvzZMwxGY2NQEwcA9pkO02 fiRaztJRAB1adEVqMH8DLI NiMFxlcGljWHNiMCANClxw OJPcEKpga9WjMWzqoNgnLZ GpUrWrHOqPdUheMXNYW0xu cEYtZXvuXUWVHQgMI5QVKC 2KYNRoyTFUGCU1DJ8qCZzs CNTaA3TtT1DbdwC6k2jizN stj1XdcMViVH5deEHkGN6G XHBhcmQgDQp9 Disclaimer (test code = [id number]) l7jixEGoRDAvp8geIIAfrF FuZzEwMzNcZnRuYmpcdWMx MAaatkLmBUcqk2BuI7EkZw AwMFxhbnNpXGRlZmxhbmcx QQXvBNB4wqUuSASrQQgcII QmBAxyOy0hiQGzsBnlLmMu IVCyw7dtbuQWRAzkLlJqC6 97SKMsGJnwk7gjc7VoXXXp uETyw1X6CWVMvsmcoYq3aI hcQ46zb3O8FcqzV1ozFDLs HNVvE7LxDH7bKYZqJhb4GN F3TGM1YNKrNNBpO5IrSU3n HZBasNVsYZn4b1bmbMdsFV FeYTL5v7ygUCijypPmBO9y ki1zcUg9r1iinrCuXODsFP NweLEUCUSuN6XfuVciUn5q fOp9aAujEhghFSM8Ppu5LM 6fqy72mmk4oZhsYZNxydpe YlA1XUgbUXOhhhcyQTu5LP cnKRSiwHZ0RQXhgGCpY0Ir KCQhAY1bltk9VWB3FZojQZ EcVxB6ZXJxoQTgUQDznFeq UJpwh379RGT0DaRcYQ3dS0 Rsn1H3zQ9yfWYjTSNmnGXw OtLuIEYnpf4lhFPaQQwdr6 CqLTC2kcI6lLLdsNMkGLPl TS64Afumx3FmRgvvy9TjS1 3diVS0RDear1wzXN6iXnY1 jjQdTQvzp1xreO8vGaN8US xhWN2bCB3bWAFbjX4drdyb XHBnYnJkcmhlYWRccGdicm AyIp7tmZdjSNS8GMlxG3sv yB8rNsB6MJusK2tmsR7pXR g9JVtdhEA5NKMohJ7gYE0d edklj8reLFbgKZbxAXGwgz V2kwX6HBYxkAVuE3BkrK0q IFFmQU6bplgtr1lmUXA1EA axYRFdJXD6FxKiTBXso0Ck fhq0TzXhm1IcnELsGHubS5 7ix088GKLgynQjN7ywhTUj tsskvWUttilsTJqkcaK4QF VuqiJwe7AgIPAeHVP3NAtm SWusaEWrCIUllOcdb0uaJ6 RscGFyXHBsYWluXGYxXGZz MjBcbGFuZzEwMzNcaGljaF toMLbjBhGeLLUjQQvmN2jl DbEuD9ItCOTnMpVogQGcC0 ggVGhpcyByZXBvcnQgbWF5 TAfjB3b4WFEituJaqPr4pg DqPgXwMFQdLMG0YKnshCUr SHGwq2AaauimtXLrZj6ozO EyYFMljY5dSEYyRIRcLFgx HJ8ckEe6BHACtTLcuILjJt IIEMQqXP84vzAoWQJDpajz q9R3FTbjXBSlb5HmtGOpU2 fou4UkPNSie87gHQ3pg7E7 q0jkOPJ1JM1ll9CcHVEqlU AexBRdNSEag4Yesjxqg8Up MSEdzqNob1UnWZIbgiVryA IoFFNhnvGmcr8griFwFWAl JCUeI4NwribgdTaphyPuBJ Ucww9mjxMaXJW3JHNKLVSp JWVcy4LvlC6aiOIKPNF6yD Nfzg4tprHHhZVjFSNsuj98 ZULzAX8iF0hrHTZbXUVqui YtpCZgb3YmBELpgVS4pGXt GT2DGvVWh43qCHEfKPDCux HoUNQvbMvcmLS2omM8rN0f IChGREEpLlx+IFRoZSBGRE BbVZ2xrgNzj4GxqeFgbVcx VXGszMGmf4DcfFWmp5NubF rdy7CdmAEhpCKxGI4yNESb clxwYXIgVVRNQiBMYWJvcm O4h9UzMTNnFEMnZIC3pZzs sky1XYMoeK6pOCHmB0vsol xoXGmbCBMci8LgnS5kxMJX aQPtt2BpkYEpwVBLlBYhEG 9xjaLwZPeDTPyYJYC5ssBp DJDai1NpNWoeP0tyB61oxV imwTx4zTF0CKR8kG0rWke+ IFxwYXJccGFyIEFwcHJvcH FhAIYpfEohhmDwR4BygzLm sJ9smLHjiuLkXU1pGW4jF4 P4jEKmNVKsinSxl3juJTol dmUgYmVlbiByZXZpZXdlZC Bru4PtGVniPBB6PGreliSy bmNsdWRpbmcgSCZFLCBTcG SjlXIkHDQ6GMbtyyHcicTh VX4frN1zwKxidY0fvAJzfF D4iubuEADjSJFhlOkaRVLm IV6eiOjvdA7zIiNhXoNpEW jnTB7qEGAtS1jxeNYgGNBx WSOnR5iqNjGccT4vlCidSP xjZjJcZnMyMFxwYXJccGFy XHBsYWluXGYxXGZzMjBcbG FuZzEwMzNcaGljaFxmMVxk UrRiNIVdZJmbH1rhNjKeF7 ZjISAnNnBzwAXwG5nrEUrc BUO0LJIaJA4npGArWJ10aN Meq5hvLFsszMshfk8sO63g vELdBYbjiLqmYHXwx17is8 LiMRGhquPheb8zRBKsptJ5 nS5lSXLeyAlvKGIcgPWeHG Axv7WnRQhkhVGlzwYwJQfz YQDuEPHbrVXbtuA9izVqfn ZrmkOiROFdzJxcWPHwd9Qw CUCvAJaaf1Afec6whRXcEN XrapUNuLqezDVqjI1qU3Rj VIPdXIZxzn7rTIQvpK8zAK szm3OoewkvENGvQCJnXAYp anPsih8jZIWrjGENJE6TAY ykaUIsx7SkwnGhF2uCYAG5 NUQwNjYwMjgxKSBleGNlcH IwXHCvao36STWsgO7wvDdi TUElmW0odV7jmFvlsZ5yMn KvCyUdJTimYC0pWBFrM2bq sEQrXSZrBUAfA3ebQvNdoO 9jaFxmMVxjZjJcZnMyMFxw YXJ9fQ== Embedded Images (test code = [id number]) [facility] [id number] 19:23:05* Test Item Value Reference Range Interpretation Comme nts Case Report (test code = [id number]) Surgical Pathology ?Case: [id number] ? Authorizing Provider: ?Dominic Keita MD ? [...] HPylori ? Final Diagnosis (test code = [id number]) a7qooNTxISXoh3xkLBCzaU FuZzEwMzNcZnRuYmpcdWMx HUutybYaHKafiPscBWW7PV SbPM5rkQmzgPn1bWzmJTWt vhK4dJDdGXwsl9hkVEO5a5 xopsxxJAQwSXaySv2teEJg nKphUhHnHDPiOYf6sC93AH UnfE2xwGCgWQu1WOVegQYm vvFeOmDrMUHrnKGvwUI2ZW OmAB5hsadvGNfrJWevSCVs lsW7YGMykQKyH7NvHSMjQG 1lsqdmSAL9HIayMECiAKS3 JdQdTOPmu6Vdklj5IlPmaZ FyZFxwbGFpblxmczIwXHBh anAYBjAJKS4LVSMFQJTGI2 jBWQNHMP7HKLJFRcoqyAAz YHObHRDoZTJRQF3UEGPxO4 hQRiLiEN7LWGAxKPPxmDCj QUPxngYXJnEQZR8YAO6XFJ wgQklPUFNZOlxwYXIgICAg LCRjUMxCM4UUOQShAUHNI6 JFQSrJBCjvEv3tUZGPJS2T O4oGA4RWUKKIOO3ZMJnzXJ CpFTNqUJPmBU5JVRevEEZF CH4MMIDDMFSRQAkMOARAJX PEFQeQEJQNW7FXNUiKCQUs bnxvYAAlAd8pU6XIOUKLNQ wgQklPUFNZOlxwYXIgICAg RQNpYAYFT7DFKeBLOK6GY7 5LJMULVBLAFC3KBOLCKLjX FD2GDANARXJTTNWRL8OffH FyICAgICAgLSBOTyBFVklE DZ9LVPXHUvXZPLiQITQlFP lTRUFTRVxwYXIgICAgICAt YM0NDXtfQONBSR2MKDXNDe dBTklTTVMgSURFTlRJRklF CWYRLTTMXZ2AJi4QGYGYLg xwYXJccGFyfXtccnRmMVxz i1ZvJ7BaOfVzSTshgyGsRB LkPzjrpafaRKBdGAE2tjSf IJDcHXzkTOFwHYrlBf3gqG FpaDupVkDiIVHfg0axkfNU VXotFoYyF469ECGlGZtoo5 dhf9IeGWUewQKfp8U2EAVR ziakfXb0l7yeTiUvJjW7cO BeCFxjZ6ymdqRscKTqV6Ty nFEdpQp9aBybB93ut4F2Tf jfR0hlPRJzVKNkU7HnAE5e LTEhQre7MJQ6YKF2BFDvUR LjV3GkYN2mOOXreZRmZDf0 t4pydDhiFPXyVBN9y1hmBH qudyA3CV9koi9jsKz6o1hp czEgRGVmYXVsdCBQYXJhZ3 KbfTukNo4exLk3sDpjGmeb QXL3Dct8ZR7muo64vgs2fV ulOFEyzetqPfZ9SDgkMURr acsgFRd5MVcxRTSnxGQ5TI UneZNeO7XqHSIiYI9fzlf9 BGU8GXpgDLDwScN9AIBdiP SaGYDxwSwtRGmck950LFD8 UjHyMT7mL6Jox8J1nS4ndY MnCDTncBShVeCtFKTuya8i lRXnHFfyb3FvJQO5psV4uA CmgOUdMGOxBL25Iuges7Ms IhmlXBO7JXWkjeLgc7Asr3 miRuGojzPcR7aiX3TbJLVp LPThBGMzOmMfmiPnl5Zao9 KayTUhdMl8y7nwKPJzMFUq cGurn8vpHHM4VUYdH7N9sH Kog2zvREyyWQIfvDJ3eqB2 DUSdiNYzH0ZcrD5hRCZmOQ 1bhjy9m9evRCD4VKfsRPRq LwJ4ocA2SZDiuDGlCYWviE wkQFcvu210TXV8IgUdPKQi k4XkX1UuoQcyK34aaUgtQ3 3wYXHtkQgrkO0rkJtwqP0f ZjBcZnMyNFxxbFxwbGFpbl xmMVxmczIwXGxhbmcxMDMz LFozM5baWuGjTZEnjBuxGU dic1SjCSYkSDSuVvrtxiUf XHBhciBJIGhhdmUgcGVyc2 9uYWxseSByZXZpZXdlZCBh tUfse1KyC5jsYN2hU9DxpN QlumLcrtNyLOfkOXGzv8a0 xBXydVspx8YgwOZhTW92vt FyZGMaTRU4FYDsb6ifBH59 joryNzMscI66aoKgyaRrTB Zcm0syZ8vqzWKxi9Aji5Sc tfRzLBexu8AuKL2drIUydt zxtJT5FTVkbWRblmJvdaL6 xMlzWSFvnW7yaN5mfYhusS 6wAsWhHcKbQMcqNR7tRKWf L5swvXFpGWMxUAVtR8mfTl ZugY3ofRgsRhxoulX3QPJb cn19 Clinical Information (test code = 2071985169) Shivani Schuler is a 47 year old female with IDA1. Gastric polyp x 6 r/o adenoma2.Duodenal Bx, r/o Celiac disease 3. Gastric Bx r/o HPylori Gross Description (test code = 6197799627) s1bqpCMeOSXquBTROGE2AG LrDO4qlGfilEk8bUoxQICe oiU8kVOoWSovo2gxQTG9r2 bmhhTHTaoiTTIfNP8uRHtn DQVfPJ2dLjWbVDUeArYsYD BhcGVydzEyMjQwXHBhcGVy sEN1LUNwGX1lszjoABnzJM jaHBGnoiR2HOAhuPIbA9Mp IQRrMO6vghnrUKM1NMZMQt ycGn9azTHptGbgZdMtLqQm YXJzZXQwXGZuaWwgQXJpYW p2bS1DSxfmBCK6URMGKrcy PnoahPmsd4ZrePKhZGJkOP xcaWQgNTEwMDAgXFxkYiBP BpOxIuQ5Ehv0JBA0ElU8GN e5IEQYIIYjLlthVYL4FyU1 PFu4XIXoZP8oNLcpfLGmMA saUmudPSrgL527EQfiOVOs O0GtO9NkXDnwAjSiTJjzIM CjZGDvUIahXYUuR0BKQZDb LTN7JkSvHIMsDNm6JEgrA7 GYSBPnTJDgZhS5WYIyOcO0 GVh9BMVDWn5cMRcmKfBeOJ q9YUQ9RBx4BfSbAJLxMxOd OJTlCIKwILiblMYfJF5lzR ykPHOtRJ1AZEIuJHuiXQWp UwZqX9GHU9fSHK6oPCwpzU JjaFxmczIyXHBhciANClxw WBJcHT4ZWQVvAPcaAPx6mu VyQYJbIiDkOUVgJ72kb2VS m4TcJT3SRVn5pmCckxuanA 8nULIprzSsBDiCdDXdvQ5l dbWZBKpmUQYuB9XugcFmXX glWMCexz2lvIuwMJhtNuHd bGVkIHdpdGggdGhlIHBhdG baizZkS2O7akLaFZ4aJLZD PUQlcZ0tOVNdCIXeh1XywO OxdGymE5PxaHFvDxAba3j2 lHY7YCQrahTgTCHzlVGcXR Nblu6wKQokSqXfQ1F8GXXq FUSql74kbSB4yrIgLbDhiR a8cUHuDSB7AM3pqHulntWr k9r7xY6jVGWdv9Q5UFZuz3 S4MGYzgyWruLHzxYKuYUBm JF8jvqChCJ04QVWtZZxdJG doGJY7CJO0MCRwlZVty3ne tedqRr0gSZibHE0aEXehZS 10GPGkBUuuJZHdW1VqZ1L2 HUhcIPZvSJOixVYxfF1fyt GvwzUuoHq2FNItWXQ9lDGk oZwhEOKpPeeesGZ4FEBaWa PahdRmq4OqzTh1mUNcVBtq FVWheR3fmG7mLKBxSROfod AOIwysCEHqLLkrj7PlMMno cGljWHNhMzAgDQpcZXBpY0 6ak8KRr0Ofg2npeXsla6Ff tGGyDT7rxHGlLX1Yq1nnLE MoxYVnCHP6SNmas4teIZjs KRY8IQAxPhHvYNTmPK8ZRa ItCPjnHZh0JWreNUs6KBj1 QA0WAqRkUPBtChi3QvT3Cl OfWJk1FBjqFC0LTQS1EYPz TCGaWHewXNV4VWEeWOt8OC IgXFxzcyAzIFxcZmwgXFxu A06pmRHpILgvSsDuDFuqfZ kuPCLsXXW8TL5HPWWxFuJk S5ZKD7nBMI4cPbuiwxEnYP PevrLFCikaOZJgDY5HWQYa VDawRCa1eoVcSCTyCdXuJT DaE33nr9ZYo7FrFC3UHXf8 ttYyuosqpM8hXOWatiPeo8 IzMFxlcGljWHNiMzAgDQpT lCJlkM8kqdAZOKvlZXMvZ9 YwcrLmGLfzPULxxd3xdCqv IGxhYmVsbGVkIHdpdGggdG wwEMQajBqobwXrN2W4xcTi JU4pPKOUGUIqxW9yVULqIY SbSXBeKTCpeX6oVRS2m8Vc qtXgVNMTDSEwxRipMJ88mZ BjZWxpYWMgZGlzZWFzZSBh ybOuhfBzu76nuuRfo2NbPQ 9juLjoSJmIOKlrQxCyOH5x SQGqhvDvu8AwQF9nTDBrwO IrYZCljauekSVrOAu6jIGq TVHtZvSqqWqbl0JqSYZrCC ztLQ41duFzKO9tMJbaNY9n OWqgVV6lHQSfXEVeSTXaPx ScvLVyCbTauLZfZzGtK12d CwVOlRYpt7EdY1icUK4abO AhEampfNXdSJTpyLvim1Yo qREfJQEri1MgbJRmMWsjYR 8uOUW2Er7feJRdHIHmtlZ5 q9JqCPwmEXInSscfCGNqAR dcs6IlOGLsnSMUn9QiXH8B XHBhciANClxzYTMwXGVwaW BLh7IlMMMCLfrpwKenLiEd xNMcIdT8PGYlxURhTXE7XY 0waRghJFWnOKj7MFhoOTQy I6WzU6RoFLzkPiNtBGorND DxKFPaDKvkDADgD6TDXFXn OTK7TyJpQDIpGUb0SFjvA8 WQDZLcSMXoDkU1HSC3VmQ7 OGv3PXEVWv9pDDabMdOzAC DkLnX5TYl1QiHkSWHqFtKr DKZrKWVzBRwnpJBoFU6onL pvWEUyMGFsGUV4TVCeuNLL f5WyPRExBLvuQvDeVFNPPK RFLG0VIzIAALZbSuEilPJa MX1DQDEnkzWyPXctoSlcaG 7bvEEcV1stEwEpBaoxkNps TmVzdERvYzEgDQpcbHRycG FyXGxpbjBccmluMFxzYjMw HTXzcMZIw1EsGHIHXjKuLL NpbWVuIEMgaXMgcmVjZWl2 QWPhrS9zHy1ihKRagS9plT QsIKzrLMJni3f8pYK4qGOb gIG0kLLojXlnOqHhPF5kuB KxJWCRET92mHOsxjUoQHNd uG9aUKIiHQOaKGV6kqalFM KUFTG9ePOuo0I1JAaoZEX6 oR9inPmqMsBoD4L3YWXkGO Hbs79vpGV5oqEdTpJwGJRm cq1tiC5lJEflvkJfvNaryq Ohq5B2HXVrp2T3CHBihuIt cFOoiSQrXNPeSgB4ZROkNt U1TLHeKGEflKRzCPNbRG6w VGhlIHNwZWNpbWVuIGlzIG DcaFNbpmUlHELzrr43Z2hg MMGvjW0ld2qoLrHkSEYlSW MogVNceQX9BBDleL7qsQ30 ttYbnnSSFB9jfZXsBP7TDU NiMFxlcGljWHNiMCANClxw VOZhGYulf8VwNZycgTtwJO MpKyGhXYwIaZgkMKTPT9ax iOAzNHypLSWDXOuEV3BVGM 4JFLYjtMNVQRO9ZB0yGMxh FHJzU0ZsS5CvqrF0m6wooO nmc1RvhKDiIO5lkKMrGY4X XHBhcmQgDQp9 Disclaimer (test code = 5734251146) s2cglWSjWEIls5fyFYDgnJ FuZzEwMzNcZnRuYmpcdWMx LRdwaoKwYEfkd4DjP6OyUu AwMFxhbnNpXGRlZmxhbmcx SVVtVNC8wjFfLPLuSQvdQT EvTSwwAu1mgKPzfJxfAuIk ZLLmz5smgjWOGWxzHnOqN2 05IVBxBWups2amx3DeZLSw oROqg2B3URJFprnsbPo8oW bcW16ov5Q1YcfeA8hwFMAn CGFuB2PvHM5dYDEwNgu1VM I0VTJ7CKJiBQMzU4YgOA2n OFMfmZBwBVe1r7aagGzvIM PgCYS5n4xqHVcszyHoPR7h ov1xxSi0b1htvnIjBOYnWY EcqIDTMPNzH8RsvZnnNb4t fBf0eZalXuqoROB0Fuz5IG 9kuy85lve9iCpoRZVfleyz RfV5JGqaMZOzcrnqVHb9GP uyTOYbyFQ1GSKmaWUwC1Zw UTYoBC0qhvc4CIK9LEpoPV XrJfT0AFMffJLvMMRexLxd GDnsf253UYP3LpQpIV9rB1 Yrz8H7qW9vdYUaKXXxxSXb LzLoTNMbem5sgTExGGhur8 EpWRS2poN0gDDupOXpNSFd AA67Teyjw1UsAuabm4XtA4 1ykKV7VLfgj9yaZC4gTfF2 hfUnSBqow1vrzF0vWpB0KI pdUQ3wCJ3hSJXliB4hrzhq XHBnYnJkcmhlYWRccGdicm FtSw8gbRzwDSD2VJvvX6is rH7yErT9IBgvS5jobJ8wXS k6QAbdjEB5UJPrmR6rZI8h tskdw3vjSAdkRDcxWIHseo Z7yeA7OAOgfFOnK6CteS2c KLJuDL9dbspwt0imAEP2BV bzGBCaZBX3OkOyQMUvb6By zec7KjPzz3WffJXpEUmgX2 6io089QVVumbHrM4nluGMd hwzvxYPdqhhgSNfpduZ6VQ MqcxIkr1GjVZArIWV8PYap EFovnITbVABscOawj0fnW7 RscGFyXHBsYWluXGYxXGZz MjBcbGFuZzEwMzNcaGljaF swDNgqRhRuUYQoPButT9qg WxHhJ5DxLAYvIuJegORmZ6 ggVGhpcyByZXBvcnQgbWF5 HUqjM2g1XSQlapCwsLw3pj ByVsRpCPVlDPU3BBsvfBAh ABBid0ZfgfcanFIiDz1zbB GrHIOevB9wPSJpVYXaTNzf EP6xdAw7RGTGdFWwcHWvBl MEYYNvOY89zaIcIZQYgbod f1A4AHzdSPKxo0AlsOHxA7 cjd2PmPLRns33dOV5ao7M3 m4urOSD3AA4oq4TmMSGoqA GfpZFlGYLlw3Qbrnsgs3Gf VLQbnxFws3VvFKIzmyJtlC EfEALouvWyzd3uznToLPMx FIFxA9YcxmvhmYmqmuSuFZ Hwjt0gxjUrUJU8KSQZXGVb ZIAei2AkxM0txLYRCXZ7oX Wipe3gafCRkOEcMHSaog44 BAEzGS9oS1scZXYbEOBjdh NrlMPjp4RvPQTgjHB9tOAj GX7AQbKZk69qIETvICDHvh PuWQBosRzlvXP1nbS4qU6n IChGREEpLlx+IFRoZSBGRE RoUJ3svtYpu7GuxdRqmNzr IZUtaUFtn2IaeUWvu7WfxA lxt8EcjIZypIGtJK4yZBNx clxwYXIgVVRNQiBMYWJvcm J1o5LmJFErITLrOYT5aTau jcb4PVCrrI9nDQIsW1qkkr qxPPyaUGMgy7AgoA6xuIJU kNWvx3KisIQrmJDRrRSqOS 6yqjJkSSvNEXoWOLG1pzPx NXDug0HpZCqvE4gnW29suT fssTg1wDE2TIF3jA7hAyn+ IFxwYXJccGFyIEFwcHJvcH BuDBGwsYrefyDyA4JzzwCh cL5skYKeacEdFX7cWU0mY6 N5hBQfDDSpfdFpc5qsJEri dmUgYmVlbiByZXZpZXdlZC Mbu0GuFXpqDKW6RMqkfnXu bmNsdWRpbmcgSCZFLCBTcG SmbJBeBRG6KCprwiElckXs RB8zqN9lvUkvwG0tfSSwjO F0bqrvNRVfXFVkgShmKJEo FO0dsYgzdC1pWzLoDeEqBY qrSA8uKCOvS5hczGVsLZIx GARmH6wgXgHgoA2nrKozHZ xjZjJcZnMyMFxwYXJccGFy XHBsYWluXGYxXGZzMjBcbG FuZzEwMzNcaGljaFxmMVxk QgFtTITuTZcfG4idJwUmO8 VjKTMvKlQytXPmO2uvACtu UBT4ZVKoRB9oxTGvUK97hM Xsz6ycWKabeApved2iE88p mOPjGYwhyLdbJVTvm75pi9 GqLKOisuTewi5bFCFytpS0 oB4zICPxjCrhHWAjlIXyCF Hyi9VrAKmreGEbeyQvPXla JRBePEFmsRHusaG3tcUhmm ZtitJyOEMahAtzMFJvn0Yj XPXsWEarh1Qtom8zlKKpWF OkzlJNkSbpyMIurJ0xC8By OYInZNCdrt1sHAXbuJ6nNW xuj5YeihbnXYApORDeLXPo qsScqp2vRKNjkQEHYI0BDZ lavPJgy4CsxhAoU4rRKGG7 NUQwNjYwMjgxKSBleGNlcH KeQEAyyn06BXLzlQ6obQcy PCJmhC9zwB2myLuivD8bTu JoVmZhLXgxPO8qLXThM7rm jQTaOXIvXUJgJ8hwPpQvpG 9jaFxmMVxjZjJcZnMyMFxw YXJ9fQ== Embedded Images (test code = 7777727277) [facility]. METABOLIC PANEL ([id number])2022-11-03 17:25:32* Test Item Value Reference Range Interpretation Comme nts NA (test code = 8173082121) 139 mmol/L 135-145 K (test code = 7039492450) 4.2 mmol/L 3.5-5.0 CL (test code = 4411774527) 105 mmol/L 98-108 CO2 TOTAL (test code = 7580127400) 26 mmol/L 23-31 AGAP (test code = 2424592309) 8 2-16 BUN (test code = 6593042195) 9 mg/dL 7-23 GLUCOSE (test code = 7425461162) 93 mg/dL 70-110 CREATININE (test code = 5002152609) 0.60 mg/dL 0.50-1.04 TOTAL BILI (test code = 0976411219) 0.2 mg/dL 0.1-1.1 CALCIUM (test code = 2456761781) 9.2 mg/dL 8.6-10.6 T PROTEIN (test code = 1667592479) 7.0 g/dL 6.3-8.2 ALBUMIN (test code = 9926908635) 4.2 g/dL 3.5-5.0 ALK PHOS (test code = 2328750784) 118 U/L 34-122 ALTv (test code = 1742-6) 34 U/L 5-35 AST(SGOT) (test code = 2650966667) 34 U/L 13-40 eGFR (test code = 3843885856) 108.1 mL/min/1.73m2 ZAINAB (test code = ZAINAB) [...] or urine or abnormalities in imaging tests). [facility]. METABOLIC PANEL ([id number])2022-11-03 17:25:32* Test Item Value Reference Range Interpretation Comme nts NA (test code = 2983373105) 139 mmol/L 135-145 K (test code = 9796954734) 4.2 mmol/L 3.5-5.0 CL (test code = 9504692023) 105 mmol/L 98-108 CO2 TOTAL (test code = 8960237287) 26 mmol/L 23-31 AGAP (test code = 0040295610) 8 2-16 BUN (test code = 1897859164) 9 mg/dL 7-23 GLUCOSE (test code = 3139725836) 93 mg/dL 70-110 CREATININE (test code = 0742234386) 0.60 mg/dL 0.50-1.04 TOTAL BILI (test code = 3698130672) 0.2 mg/dL 0.1-1.1 CALCIUM (test code = 0362530204) 9.2 mg/dL 8.6-10.6 T PROTEIN (test code = 7292788538) 7.0 g/dL 6.3-8.2 ALBUMIN (test code = 3283967559) 4.2 g/dL 3.5-5.0 ALK PHOS (test code = 8210598352) 118 U/L 34-122 ALTv (test code = 1742-6) 34 U/L 5-35 AST(SGOT) (test code = 0898720568) 34 U/L 13-40 eGFR (test code = 6691935094) 108.1 mL/min/1.73m2 ZAINAB (test code = ZAINAB) [...] or urine or abnormalities in imaging tests). [facility]. METABOLIC PANEL ([id number])2022-11-03 17:25:32* Test Item Value Reference Range Interpretation Comme nts NA (test code = 2641646329) 139 mmol/L 135-145 K (test code = 7052213679) 4.2 mmol/L 3.5-5.0 CL (test code = 9826216444) 105 mmol/L 98-108 CO2 TOTAL (test code = 2407489928) 26 mmol/L 23-31 AGAP (test code = 5386410125) 8 2-16 BUN (test code = 3668558992) 9 mg/dL 7-23 GLUCOSE (test code = 1553734992) 93 mg/dL 70-110 CREATININE (test code = 5160180969) 0.60 mg/dL 0.50-1.04 TOTAL BILI (test code = 5489198214) 0.2 mg/dL 0.1-1.1 CALCIUM (test code = 8776511422) 9.2 mg/dL 8.6-10.6 T PROTEIN (test code = 2206770590) 7.0 g/dL 6.3-8.2 ALBUMIN (test code = 9492992673) 4.2 g/dL 3.5-5.0 ALK PHOS (test code = 0878676031) 118 U/L 34-122 ALTv (test code = 1742-6) 34 U/L 5-35 AST(SGOT) (test code = 4720365617) 34 U/L 13-40 eGFR (test code = 3812796542) 108.1 mL/min/1.73m2 ZAINAB (test code = ZAINAB) [...] abnormalities in imaging tests). [facility] ([id number])2022-11-03 17:25:32* Test Item Value Reference Range Interpretation Comme nts NA (test code = 7432583716) 139 mmol/L 135-145 K (test code = 9389348803) 4.2 mmol/L 3.5-5.0 CL (test code = 6614203692) 105 mmol/L 98-108 CO2 TOTAL (test code = 5010946683) 26 mmol/L 23-31 AGAP (test code = 6308285736) 8 2-16 BUN (test code = 4930395806) 9 mg/dL 7-23 GLUCOSE (test code = 1590449893) 93 mg/dL 70-110 CREATININE (test code = 7443373238) 0.60 mg/dL 0.50-1.04 TOTAL BILI (test code = 9991067756) 0.2 mg/dL 0.1-1.1 CALCIUM (test code = 0468836644) 9.2 mg/dL 8.6-10.6 T PROTEIN (test code = 2709713215) 7.0 g/dL 6.3-8.2 ALBUMIN (test code = 6691177613) 4.2 g/dL 3.5-5.0 ALK PHOS (test code = 7617274594) 118 U/L 34-122 ALTv (test code = 1742-6) 34 U/L 5-35 AST(SGOT) (test code = 1808961358) 34 U/L 13-40 eGFR (test code = 5446245293) 108.1 mL/min/1.73m2 ZAINAB (test code = ZAINAB) [...] or urine or abnormalities in imaging tests). [facility]. METABOLIC PANEL ([id number])2022-11-03 17:25:32* Test Item Value Reference Range Interpretation Comme nts NA (test code = 6668299580) 139 mmol/L 135-145 K (test code = 2790074415) 4.2 mmol/L 3.5-5.0 CL (test code = 7459224874) 105 mmol/L 98-108 CO2 TOTAL (test code = 3519703696) 26 mmol/L 23-31 AGAP (test code = 4508567822) 8 2-16 BUN (test code = 2120257485) 9 mg/dL 7-23 GLUCOSE (test code = 6847812649) 93 mg/dL 70-110 CREATININE (test code = 9132437702) 0.60 mg/dL 0.50-1.04 TOTAL BILI (test code = 2748830579) 0.2 mg/dL 0.1-1.1 CALCIUM (test code = 2133287166) 9.2 mg/dL 8.6-10.6 T PROTEIN (test code = 4373999666) 7.0 g/dL 6.3-8.2 ALBUMIN (test code = 4923355641) 4.2 g/dL 3.5-5.0 ALK PHOS (test code = 5016444133) 118 U/L 34-122 ALTv (test code = 1742-6) 34 U/L 5-35 AST(SGOT) (test code = 6680175228) 34 U/L 13-40 eGFR (test code = 3775105012) 108.1 mL/min/1.73m2 ZAINAB (test code = ZAINAB) [...] or urine or abnormalities in imaging tests). [facility]. METABOLIC PANEL ([id number])2022-11-03 17:25:32* Test Item Value Reference Range Interpretation Comme nts NA (test code = 2515098110) 139 mmol/L 135-145 K (test code = 9933593861) 4.2 mmol/L 3.5-5.0 CL (test code = 3545120213) 105 mmol/L 98-108 CO2 TOTAL (test code = 1597999488) 26 mmol/L 23-31 AGAP (test code = 7856069388) 8 2-16 BUN (test code = 0452813177) 9 mg/dL 7-23 GLUCOSE (test code = 2403405921) 93 mg/dL 70-110 CREATININE (test code = 0696002774) 0.60 mg/dL 0.50-1.04 TOTAL BILI (test code = 1379345236) 0.2 mg/dL 0.1-1.1 CALCIUM (test code = 6148264876) 9.2 mg/dL 8.6-10.6 T PROTEIN (test code = 2050664332) 7.0 g/dL 6.3-8.2 ALBUMIN (test code = 7328154165) 4.2 g/dL 3.5-5.0 ALK PHOS (test code = 9925408079) 118 U/L 34-122 ALTv (test code = 1742-6) 34 U/L 5-35 AST(SGOT) (test code = 6311747819) 34 U/L 13-40 eGFR (test code = 5039849395) 108.1 mL/min/1.73m2 ZAINAB (test code = ZAINAB) [...] or urine or abnormalities in imaging tests). [facility]. METABOLIC PANEL ([id number])2022-11-03 17:25:32* Test Item Value Reference Range Interpretation Comme nts NA (test code = 9703496236) 139 mmol/L 135-145 K (test code = 4959081582) 4.2 mmol/L 3.5-5.0 CL (test code = 9455496631) 105 mmol/L 98-108 CO2 TOTAL (test code = 8080341940) 26 mmol/L 23-31 AGAP (test code = 6085733897) 8 2-16 BUN (test code = 1201012584) 9 mg/dL 7-23 GLUCOSE (test code = 8783725909) 93 mg/dL 70-110 CREATININE (test code = 2380154103) 0.60 mg/dL 0.50-1.04 TOTAL BILI (test code = 1519243562) 0.2 mg/dL 0.1-1.1 CALCIUM (test code = 0857764353) 9.2 mg/dL 8.6-10.6 T PROTEIN (test code = 3772230123) 7.0 g/dL 6.3-8.2 ALBUMIN (test code = 3005497288) 4.2 g/dL 3.5-5.0 ALK PHOS (test code = 4045499665) 118 U/L 34-122 ALTv (test code = 1742-6) 34 U/L 5-35 AST(SGOT) (test code = 9948822254) 34 U/L 13-40 eGFR (test code = 8460895970) 108.1 mL/min/1.73m2 ZAINAB (test code = ZAINAB) [...] or urine or abnormalities in imaging tests). [facility]. METABOLIC PANEL ([id number])2022-11-03 17:25:32* Test Item Value Reference Range Interpretation Comme nts NA (test code = 4638229986) 139 mmol/L 135-145 K (test code = 3060560404) 4.2 mmol/L 3.5-5.0 CL (test code = 3887510065) 105 mmol/L 98-108 CO2 TOTAL (test code = 3789306809) 26 mmol/L 23-31 AGAP (test code = 3012186382) 8 2-16 BUN (test code = 0692416670) 9 mg/dL 7-23 GLUCOSE (test code = 8151724147) 93 mg/dL 70-110 CREATININE (test code = 7449289807) 0.60 mg/dL 0.50-1.04 TOTAL BILI (test code = 3571868033) 0.2 mg/dL 0.1-1.1 CALCIUM (test code = 1010432171) 9.2 mg/dL 8.6-10.6 T PROTEIN (test code = 0299387249) 7.0 g/dL 6.3-8.2 ALBUMIN (test code = 5647007724) 4.2 g/dL 3.5-5.0 ALK PHOS (test code = 5305353024) 118 U/L 34-122 ALTv (test code = 1742-6) 34 U/L 5-35 AST(SGOT) (test code = 6543740464) 34 U/L 13-40 eGFR (test code = 4707022277) 108.1 mL/min/1.73m2 ZAINAB (test code = ZAINAB) [...] or urine or abnormalities in imaging tests). [facility]. METABOLIC PANEL ([id number])2022-11-03 17:25:32* Test Item Value Reference Range Interpretation Comme nts NA (test code = 9755546463) 139 mmol/L 135-145 K (test code = 5329475842) 4.2 mmol/L 3.5-5.0 CL (test code = 1954256436) 105 mmol/L 98-108 CO2 TOTAL (test code = 5619386801) 26 mmol/L 23-31 AGAP (test code = 5103907099) 8 2-16 BUN (test code = 4771498976) 9 mg/dL 7-23 GLUCOSE (test code = 6752462757) 93 mg/dL 70-110 CREATININE (test code = 6573632250) 0.60 mg/dL 0.50-1.04 TOTAL BILI (test code = 8154981814) 0.2 mg/dL 0.1-1.1 CALCIUM (test code = 5349670533) 9.2 mg/dL 8.6-10.6 T PROTEIN (test code = 5189287948) 7.0 g/dL 6.3-8.2 ALBUMIN (test code = 0572408152) 4.2 g/dL 3.5-5.0 ALK PHOS (test code = 1434542754) 118 U/L 34-122 ALTv (test code = 1742-6) 34 U/L 5-35 AST(SGOT) (test code = 5499203180) 34 U/L 13-40 eGFR (test code = 20178-5) 108.1 mL/min/1.73m2 ZAINAB (test code = ZAINAB) [...] or urine or abnormalities in imaging tests). [facility]. METABOLIC PANEL ([id number])2022-11-03 17:25:32* Test Item Value Reference Range Interpretation Comme nts NA (test code = 1748667088) 139 mmol/L 135-145 K (test code = 0269507830) 4.2 mmol/L 3.5-5.0 CL (test code = 6439223065) 105 mmol/L 98-108 CO2 TOTAL (test code = 5734824029) 26 mmol/L 23-31 AGAP (test code = 7782100143) 8 2-16 BUN (test code = 1663774325) 9 mg/dL 7-23 GLUCOSE (test code = 8298158922) 93 mg/dL 70-110 CREATININE (test code = 9720493452) 0.60 mg/dL 0.50-1.04 TOTAL BILI (test code = 0589527385) 0.2 mg/dL 0.1-1.1 CALCIUM (test code = 8898571522) 9.2 mg/dL 8.6-10.6 T PROTEIN (test code = 0359014669) 7.0 g/dL 6.3-8.2 ALBUMIN (test code = 4571606632) 4.2 g/dL 3.5-5.0 ALK PHOS (test code = 0485588702) 118 U/L 34-122 ALTv (test code = 1742-6) 34 U/L 5-35 AST(SGOT) (test code = 3640119246) 34 U/L 13-40 eGFR (test code = 86829-6) 108.1 mL/min/1.73m2 ZAINAB (test code = ZAINAB) [...] or urine or abnormalities in imaging tests). [facility]. METABOLIC PANEL ([id number])2022-11-03 17:25:32* Test Item Value Reference Range Interpretation Comme nts NA (test code = 5692673754) 139 mmol/L 135-145 K (test code = 8502892066) 4.2 mmol/L 3.5-5.0 CL (test code = 0927965300) 105 mmol/L 98-108 CO2 TOTAL (test code = 0836179926) 26 mmol/L 23-31 AGAP (test code = 0777119115) 8 2-16 BUN (test code = 4966558350) 9 mg/dL 7-23 GLUCOSE (test code = 9146405075) 93 mg/dL 70-110 CREATININE (test code = 6915446673) 0.60 mg/dL 0.50-1.04 TOTAL BILI (test code = 4834623523) 0.2 mg/dL 0.1-1.1 CALCIUM (test code = 9529451938) 9.2 mg/dL 8.6-10.6 T PROTEIN (test code = 0910190462) 7.0 g/dL 6.3-8.2 ALBUMIN (test code = 5520826829) 4.2 g/dL 3.5-5.0 ALK PHOS (test code = 3638878379) 118 U/L 34-122 ALTv (test code = 1742-6) 34 U/L 5-35 AST(SGOT) (test code = 5108749691) 34 U/L 13-40 eGFR (test code = 10466-8) 108.1 mL/min/1.73m2 ZAINAB (test code = ZAINAB) [...] or urine or abnormalities in imaging tests). [facility]. METABOLIC PANEL ([id number])2022-11-03 17:25:32* Test Item Value Reference Range Interpretation Comme nts NA (test code = 7671463580) 139 mmol/L 135-145 K (test code = 1571852121) 4.2 mmol/L 3.5-5.0 CL (test code = 0958163533) 105 mmol/L 98-108 CO2 TOTAL (test code = 4096042150) 26 mmol/L 23-31 AGAP (test code = 7461393319) 8 2-16 BUN (test code = 6688471971) 9 mg/dL 7-23 GLUCOSE (test code = 2145914735) 93 mg/dL 70-110 CREATININE (test code = 6811611172) 0.60 mg/dL 0.50-1.04 TOTAL BILI (test code = 0505076022) 0.2 mg/dL 0.1-1.1 CALCIUM (test code = 7341227989) 9.2 mg/dL 8.6-10.6 T PROTEIN (test code = 5064068152) 7.0 g/dL 6.3-8.2 ALBUMIN (test code = 9229485147) 4.2 g/dL 3.5-5.0 ALK PHOS (test code = 3912190052) 118 U/L 34-122 ALTv (test code = 1742-6) 34 U/L 5-35 AST(SGOT) (test code = 6865558605) 34 U/L 13-40 eGFR (test code = 02769-3) 108.1 mL/min/1.73m2 ZAINAB (test code = ZAINAB) [...] or urine or abnormalities in imaging tests). [facility]. METABOLIC PANEL ([id number])2022-11-03 17:25:32* Test Item Value Reference Range Interpretation Comme nts NA (test code = 8651350778) 139 mmol/L 135-145 K (test code = 4280532101) 4.2 mmol/L 3.5-5.0 CL (test code = 2863832717) 105 mmol/L 98-108 CO2 TOTAL (test code = 4659236227) 26 mmol/L 23-31 AGAP (test code = 3246579037) 8 2-16 BUN (test code = 1924828083) 9 mg/dL 7-23 GLUCOSE (test code = 1527307567) 93 mg/dL 70-110 CREATININE (test code = 0447295769) 0.60 mg/dL 0.50-1.04 TOTAL BILI (test code = 8570359572) 0.2 mg/dL 0.1-1.1 CALCIUM (test code = 7997430282) 9.2 mg/dL 8.6-10.6 T PROTEIN (test code = 1587863003) 7.0 g/dL 6.3-8.2 ALBUMIN (test code = 0207853229) 4.2 g/dL 3.5-5.0 ALK PHOS (test code = 6016278002) 118 U/L 34-122 ALTv (test code = 1742-6) 34 U/L 5-35 AST(SGOT) (test code = 3042669055) 34 U/L 13-40 eGFR (test code = 61097-8) 108.1 mL/min/1.73m2 ZAINAB (test code = ZAINAB) [...] or urine or abnormalities in imaging tests). [facility]. METABOLIC PANEL ([id number])2022-11-03 17:25:32* Test Item Value Reference Range Interpretation Comme nts NA (test code = 7419276401) 139 mmol/L 135-145 K (test code = 3236492575) 4.2 mmol/L 3.5-5.0 CL (test code = 2657491340) 105 mmol/L 98-108 CO2 TOTAL (test code = 5107297972) 26 mmol/L 23-31 AGAP (test code = 8260328454) 8 2-16 BUN (test code = 4374074696) 9 mg/dL 7-23 GLUCOSE (test code = 3708962641) 93 mg/dL 70-110 CREATININE (test code = 4634229783) 0.60 mg/dL 0.50-1.04 TOTAL BILI (test code = 5597749903) 0.2 mg/dL 0.1-1.1 CALCIUM (test code = 9711221465) 9.2 mg/dL 8.6-10.6 T PROTEIN (test code = 5319351275) 7.0 g/dL 6.3-8.2 ALBUMIN (test code = 0718137191) 4.2 g/dL 3.5-5.0 ALK PHOS (test code = 3667626386) 118 U/L 34-122 ALTv (test code = 1742-6) 34 U/L 5-35 AST(SGOT) (test code = 4015494690) 34 U/L 13-40 eGFR (test code = 77592-7) 108.1 mL/min/1.73m2 ZAINAB (test code = ZAINAB) [...] & [facility] METABOLIC PANEL ([id number])2022-11-03 17:25:32* Test Item Value Reference Range Interpretation Comme nts NA (test code = 9424518963) 139 mmol/L 135-145 K (test code = 6090089520) 4.2 mmol/L 3.5-5.0 CL (test code = 2140834866) 105 mmol/L 98-108 CO2 TOTAL (test code = 5021349385) 26 mmol/L 23-31 AGAP (test code = 0029294782) 8 2-16 BUN (test code = 5702726782) 9 mg/dL 7-23 GLUCOSE (test code = 7946162212) 93 mg/dL 70-110 CREATININE (test code = 1910602303) 0.60 mg/dL 0.50-1.04 TOTAL BILI (test code = 2051749428) 0.2 mg/dL 0.1-1.1 CALCIUM (test code = 0645995523) 9.2 mg/dL 8.6-10.6 T PROTEIN (test code = 8330727061) 7.0 g/dL 6.3-8.2 ALBUMIN (test code = 2504906905) 4.2 g/dL 3.5-5.0 ALK PHOS (test code = 3778292251) 118 U/L 34-122 ALTv (test code = 1742-6) 34 U/L 5-35 AST(SGOT) (test code = 4980282359) 34 U/L 13-40 eGFR (test code = 32462-2) 108.1 mL/min/1.73m2 ZAINAB (test code = ZAINAB) [...] or urine or abnormalities in imaging tests). [facility]. METABOLIC PANEL ([id number])2022-11-03 17:25:32* Test Item Value Reference Range Interpretation Comme nts NA (test code = 9502502696) 139 mmol/L 135-145 K (test code = 3538650535) 4.2 mmol/L 3.5-5.0 CL (test code = 3804270926) 105 mmol/L 98-108 CO2 TOTAL (test code = 6795217020) 26 mmol/L 23-31 AGAP (test code = 6411441259) 8 2-16 BUN (test code = 6830117767) 9 mg/dL 7-23 GLUCOSE (test code = 9235341166) 93 mg/dL 70-110 CREATININE (test code = 9150613473) 0.60 mg/dL 0.50-1.04 TOTAL BILI (test code = 1488383573) 0.2 mg/dL 0.1-1.1 CALCIUM (test code = 0092837364) 9.2 mg/dL 8.6-10.6 T PROTEIN (test code = 9519657042) 7.0 g/dL 6.3-8.2 ALBUMIN (test code = 0768450293) 4.2 g/dL 3.5-5.0 ALK PHOS (test code = 6001496097) 118 U/L 34-122 ALTv (test code = 1742-6) 34 U/L 5-35 AST(SGOT) (test code = 8676439597) 34 U/L 13-40 eGFR (test code = 28256-2) 108.1 mL/min/1.73m2 ZAINAB (test code = ZAINAB) [...] or urine or abnormalities in imaging tests). [facility]. METABOLIC PANEL ([id number])2022-11-03 17:25:32* Test Item Value Reference Range Interpretation Comme nts NA (test code = 7634038030) 139 mmol/L 135-145 K (test code = 0312932467) 4.2 mmol/L 3.5-5.0 CL (test code = 3803865615) 105 mmol/L 98-108 CO2 TOTAL (test code = 2603018795) 26 mmol/L 23-31 AGAP (test code = 1001006152) 8 2-16 BUN (test code = 5791532799) 9 mg/dL 7-23 GLUCOSE (test code = 2094573558) 93 mg/dL 70-110 CREATININE (test code = 8089354151) 0.60 mg/dL 0.50-1.04 TOTAL BILI (test code = 1111205255) 0.2 mg/dL 0.1-1.1 CALCIUM (test code = 8110823622) 9.2 mg/dL 8.6-10.6 T PROTEIN (test code = 7782270401) 7.0 g/dL 6.3-8.2 ALBUMIN (test code = 3528478694) 4.2 g/dL 3.5-5.0 ALK PHOS (test code = 8997124221) 118 U/L 34-122 ALTv (test code = 1742-6) 34 U/L 5-35 AST(SGOT) (test code = 8791039806) 34 U/L 13-40 eGFR (test code = 23452-9) 108.1 mL/min/1.73m2 ZAINAB (test code = ZAINAB) [...] or urine or abnormalities in imaging tests). [facility]. METABOLIC PANEL ([id number])2022-11-03 17:25:32* Test Item Value Reference Range Interpretation Comme nts NA (test code = 1792639850) 139 mmol/L 135-145 K (test code = 8639988682) 4.2 mmol/L 3.5-5.0 CL (test code = 8297473106) 105 mmol/L 98-108 CO2 TOTAL (test code = 3513325672) 26 mmol/L 23-31 AGAP (test code = 4757005078) 8 2-16 BUN (test code = 4635967601) 9 mg/dL 7-23 GLUCOSE (test code = 1731470589) 93 mg/dL 70-110 CREATININE (test code = 5830711043) 0.60 mg/dL 0.50-1.04 TOTAL BILI (test code = 6861901672) 0.2 mg/dL 0.1-1.1 CALCIUM (test code = 1366940931) 9.2 mg/dL 8.6-10.6 T PROTEIN (test code = 0434379880) 7.0 g/dL 6.3-8.2 ALBUMIN (test code = 8061483336) 4.2 g/dL 3.5-5.0 ALK PHOS (test code = 5854545725) 118 U/L 34-122 ALTv (test code = 1742-6) 34 U/L 5-35 AST(SGOT) (test code = 0938845419) 34 U/L 13-40 eGFR (test code = 75766-4) 108.1 mL/min/1.73m2 ZAINAB (test code = ZAINAB) [...] or urine or abnormalities in imaging tests). [facility] WITH [id number] 17:18:52* Test Item Value Reference Range Interpretation Comme nts WBC (test code = 6690-2) 7.41 See_Comment [[employer]] The system which generated this result transmitted reference range: 4.30 - 11.10 10*3/?L. The reference range was not used to interpret this result as normal/abnormal. RBC (test code = 789-8) 4.20 See_Comment [[employer]] The system which generated this result transmitted [...] g/dL 31.6-35.1 L RDW-SD (test code = 51338-1) 46.2 fL 39.0-49.9 RDW-CV (test code = 788-0) 17.9 % 12.0-15.5 H PLT (test code = 777-3) 304 See_Comment [Automated messa ge] The system which generated this result transmitted reference range: 166 - 358 10*3/?L. The reference range was not used to interpret this result as normal/abnormal. MPV (test code = 72492-6) 11.0 fL 9.5-12.9 NRBC/100 WBC (test code = 2265045429) 0.0 See_Comment [Automated me ssage] The system which generated this result transmitted reference range: 0.0 - 10.0 /100 WBCs. The reference range was not used to interpret this result as normal/abnormal. NRBC x10^3 (test code = 8592981835) See_Comment [Automated messa ge] The system which generated this result transmitted reference range: 10*3/?L. The reference range was not used to interpret this result as normal/abnormal. GRAN MAT (NEUT) % (test code = 770-8) 68.6 % IMM GRAN % (test code = 3145975686) 0.70 % LYMPH % (test code = 736-9) 19.8 % MONO % (test code = 5905-5) 5.3 % EOS % (test code = 713-8) 5.1 % BASO % (test code = 706-2) 0.5 % GRAN MAT x10^3(ANC) (test code = 0132125149) 5.08 10*3/uL 1.88-7.09 IMM GRAN x10^3 (test code = 9447525640) 0.05 10*3/uL 0.00-0.06 LYMPH x10^3 (test code = 731-0) 1.47 10*3/uL 1.32-3.29 MONO x10^3 (test code = 742-7) 0.39 10*3/uL 0.33-0.92 EOS x10^3 (test code = 711-2) 0.38 10*3/uL 0.03-0.39 BASO x10^3 (test code = 704-7) 0.04 10*3/uL 0.01-0.07 Lab Interpretation (test code = 23522-3) Abnormal [facility] WITH [id number] 17:18:52* Test Item Value Reference Range Interpretation [...] g/dL 31.6-35.1 L RDW-SD (test code = 53405-3) 46.2 fL 39.0-49.9 RDW-CV (test code = 788-0) 17.9 % 12.0-15.5 H PLT (test code = 777-3) 304 See_Comment [Automated messa ge] The system which generated this result transmitted reference range: 166 - 358 10*3/?L. The reference range was not used to interpret this result as normal/abnormal. MPV (test code = 40846-1) 11.0 fL 9.5-12.9 NRBC/100 WBC (test code = 7810096714) 0.0 See_Comment [Automated [employer]] The system which generated this result transmitted reference range: 0.0 - 10.0 /100 WBCs. The reference range was not used to interpret this result as normal/abnormal. NRBC x10^3 (test code = 1365021441) See_Comment [Automated messa ge] The system which generated this result transmitted reference range: 10*3/?L. The reference range was not used to interpret this result as normal/abnormal. GRAN MAT (NEUT) % (test code = 770-8) 68.6 % IMM GRAN % (test code = 2865393309) 0.70 % LYMPH % (test code = 736-9) 19.8 % MONO % (test code = 5905-5) 5.3 % EOS % (test code = 713-8) 5.1 % BASO % (test code = 706-2) 0.5 % GRAN MAT x10^3(ANC) (test code = 9068397908) 5.08 10*3/uL 1.88-7.09 IMM GRAN x10^3 (test code = 9986209686) 0.05 10*3/uL 0.00-0.06 LYMPH x10^3 (test code = 731-0) 1.47 10*3/uL 1.32-3.29 MONO x10^3 (test code = 742-7) 0.39 10*3/uL 0.33-0.92 EOS x10^3 (test code = 711-2) 0.38 10*3/uL 0.03-0.39 BASO x10^3 (test code = 704-7) 0.04 10*3/uL 0.01-0.07 Lab Interpretation (test code = 50283-8) Abnormal [facility] WITH [id number] 17:18:52* Test Item Value Reference Range Interpretation Comme nts WBC (test code = 6690-2) 7.41 See_Comment [[employer]] The system which generated this result transmitted reference range: 4.30 - 11.10 10*3/?L. The reference range was not used to interpret this result as normal/abnormal. RBC (test code = 789-8) 4.20 See_Comment [[employer]] The system which generated this result [...] g/dL 31.6-35.1 L RDW-SD (test code = 48907-1) 46.2 fL 39.0-49.9 RDW-CV (test code = 788-0) 17.9 % 12.0-15.5 H PLT (test code = 777-3) 304 See_Comment [[employer]] The system which generated this result transmitted reference range: 166 - 358 10*3/?L. The reference range was not used to interpret this result as normal/abnormal. MPV (test code = 97473-9) 11.0 fL 9.5-12.9 NRBC/100 WBC (test code = 0118255765) 0.0 See_Comment [Automated [employer]] The system which generated this result transmitted reference range: 0.0 - 10.0 /100 WBCs. The reference range was not used to interpret this result as normal/abnormal. NRBC x10^3 (test code = 5427688356) See_Comment [[employer]] The system which generated this result transmitted reference range: 10*3/?L. The reference range was not used to interpret this result as normal/abnormal. GRAN MAT (NEUT) % (test code = 770-8) 68.6 % IMM GRAN % (test code = 3070138715) 0.70 % LYMPH % (test code = 736-9) 19.8 % MONO % (test code = 5905-5) 5.3 % EOS % (test code = 713-8) 5.1 % BASO % (test code = 706-2) 0.5 % GRAN MAT x10^3(ANC) (test code = 7645584523) 5.08 10*3/uL 1.88-7.09 IMM GRAN x10^3 (test code = 7291276429) 0.05 10*3/uL 0.00-0.06 LYMPH x10^3 (test code = 731-0) 1.47 10*3/uL 1.32-3.29 MONO x10^3 (test code = 742-7) 0.39 10*3/uL 0.33-0.92 EOS x10^3 (test code = 711-2) 0.38 10*3/uL 0.03-0.39 BASO x10^3 (test code = 704-7) 0.04 10*3/uL 0.01-0.07 Lab Interpretation (test code = 08018-1) Abnormal [facility] WITH [id number] 17:18:52* Test Item Value Reference Range Interpretation [...] g/dL 31.6-35.1 L RDW-SD (test code = 82244-4) 46.2 fL 39.0-49.9 RDW-CV (test code = 788-0) 17.9 % 12.0-15.5 H PLT (test code = 777-3) 304 See_Comment [Automated messa ge] The system which generated this result transmitted reference range: 166 - 358 10*3/?L. The reference range was not used to interpret this result as normal/abnormal. MPV (test code = 00344-5) 11.0 fL 9.5-12.9 NRBC/100 WBC (test code = 9781436955) 0.0 See_Comment [[employer]ated [employer]] The system which generated this result transmitted reference range: 0.0 - 10.0 /100 WBCs. The reference range was not used to interpret this result as normal/abnormal. NRBC x10^3 (test code = 2628882890) See_Comment [Automated messa ge] The system which generated this result transmitted reference range: 10*3/?L. The reference range was not used to interpret this result as normal/abnormal. GRAN MAT (NEUT) % (test code = 770-8) 68.6 % IMM GRAN % (test code = 6478999917) 0.70 % LYMPH % (test code = 736-9) 19.8 % MONO % (test code = 5905-5) 5.3 % EOS % (test code = 713-8) 5.1 % BASO % (test code = 706-2) 0.5 % GRAN MAT x10^3(ANC) (test code = 0020009354) 5.08 10*3/uL 1.88-7.09 IMM GRAN x10^3 (test code = 8054463311) 0.05 10*3/uL 0.00-0.06 LYMPH x10^3 (test code = 731-0) 1.47 10*3/uL 1.32-3.29 MONO x10^3 (test code = 742-7) 0.39 10*3/uL 0.33-0.92 EOS x10^3 (test code = 711-2) 0.38 10*3/uL 0.03-0.39 BASO x10^3 (test code = 704-7) 0.04 10*3/uL 0.01-0.07 Lab Interpretation (test code = 86627-8) Abnormal [facility] WITH [id number] 17:18:52* Test Item Value Reference Range Interpretation [...] g/dL 31.6-35.1 L RDW-SD (test code = 41856-4) 46.2 fL 39.0-49.9 RDW-CV (test code = 788-0) 17.9 % 12.0-15.5 H PLT (test code = 777-3) 304 See_Comment [Automated messa ge] The system which generated this result transmitted reference range: 166 - 358 10*3/?L. The reference range was not used to interpret this result as normal/abnormal. MPV (test code = 81478-5) 11.0 fL 9.5-12.9 NRBC/100 WBC (test code = 5814149673) 0.0 See_Comment [[employer]] The system which generated this result transmitted reference range: 0.0 - 10.0 /100 WBCs. The reference range was not used to interpret this result as normal/abnormal. NRBC x10^3 (test code = 2170417873) See_Comment [Automated messa ge] The system which generated this result transmitted reference range: 10*3/?L. The reference range was not used to interpret this result as normal/abnormal. GRAN MAT (NEUT) % (test code = 770-8) 68.6 % IMM GRAN % (test code = 1581538032) 0.70 % LYMPH % (test code = 736-9) 19.8 % MONO % (test code = 5905-5) 5.3 % EOS % (test code = 713-8) 5.1 % BASO % (test code = 706-2) 0.5 % GRAN MAT x10^3(ANC) (test code = 2086195178) 5.08 10*3/uL 1.88-7.09 IMM GRAN x10^3 (test code = 1435037294) 0.05 10*3/uL 0.00-0.06 LYMPH x10^3 (test code = 731-0) 1.47 10*3/uL 1.32-3.29 MONO x10^3 (test code = 742-7) 0.39 10*3/uL 0.33-0.92 EOS x10^3 (test code = 711-2) 0.38 10*3/uL 0.03-0.39 BASO x10^3 (test code = 704-7) 0.04 10*3/uL 0.01-0.07 Lab Interpretation (test code = 21539-2) Abnormal [facility] WITH [id number] 17:18:52* Test Item Value Reference Range Interpretation Comme nts WBC (test code = 6690-2) 7.41 See_Comment [[employer]] The system which generated this result [...] g/dL 31.6-35.1 L RDW-SD (test code = 48841-4) 46.2 fL 39.0-49.9 RDW-CV (test code = 788-0) 17.9 % 12.0-15.5 H PLT (test code = 777-3) 304 See_Comment [[employer]] The system which generated this result transmitted reference range: 166 - 358 10*3/?L. The reference range was not used to interpret this result as normal/abnormal. MPV (test code = 87159-1) 11.0 fL 9.5-12.9 NRBC/100 WBC (test code = 9329221270) 0.0 See_Comment [Automated me ssage] The system which generated this result transmitted reference range: 0.0 - 10.0 /100 WBCs. The reference range was not used to interpret this result as normal/abnormal. NRBC x10^3 (test code = 1075537635) See_Comment [Automated messa ge] The system which generated this result transmitted reference range: 10*3/?L. The reference range was not used to interpret this result as normal/abnormal. GRAN MAT (NEUT) % (test code = 770-8) 68.6 % IMM GRAN % (test code = 8311306310) 0.70 % LYMPH % (test code = 736-9) 19.8 % MONO % (test code = 5905-5) 5.3 % EOS % (test code = 713-8) 5.1 % BASO % (test code = 706-2) 0.5 % GRAN MAT x10^3(ANC) (test code = 2126526479) 5.08 10*3/uL 1.88-7.09 IMM GRAN x10^3 (test code = 5286775553) 0.05 10*3/uL 0.00-0.06 LYMPH x10^3 (test code = 731-0) 1.47 10*3/uL 1.32-3.29 MONO x10^3 (test code = 742-7) 0.39 10*3/uL 0.33-0.92 EOS x10^3 (test code = 711-2) 0.38 10*3/uL 0.03-0.39 BASO x10^3 (test code = 704-7) 0.04 10*3/uL 0.01-0.07 Lab Interpretation (test code = 61190-6) Abnormal [facility] WITH [id number] 17:18:52* Test Item Value Reference Range Interpretation Comme nts WBC (test code = 6690-2) 7.41 See_Comment [Automated messa ge] The system which generated this result transmitted reference range: 4.30 - 11.10 10*3/?L. The reference range was not used to interpret this result as normal/abnormal. RBC (test code = 789-8) 4.20 See_Comment [[employer]] The system which generated this result [...] g/dL 31.6-35.1 L RDW-SD (test code = 33403-9) 46.2 fL 39.0-49.9 RDW-CV (test code = 788-0) 17.9 % 12.0-15.5 H PLT (test code = 777-3) 304 See_Comment [[employer]] The system which generated this result transmitted reference range: 166 - 358 10*3/?L. The reference range was not used to interpret this result as normal/abnormal. MPV (test code = 38650-9) 11.0 fL 9.5-12.9 NRBC/100 WBC (test code = 5072012796) 0.0 See_Comment [[employer]] The system which generated this result transmitted reference range: 0.0 - 10.0 /100 WBCs. The reference range was not used to interpret this result as normal/abnormal. NRBC x10^3 (test code = 8997330461) See_Comment [[employer]] The system which generated this result transmitted reference range: 10*3/?L. The reference range was not used to interpret this result as normal/abnormal. GRAN MAT (NEUT) % (test code = 770-8) 68.6 % IMM GRAN % (test code = 4032429527) 0.70 % LYMPH % (test code = 736-9) 19.8 % MONO % (test code = 5905-5) 5.3 % EOS % (test code = 713-8) 5.1 % BASO % (test code = 706-2) 0.5 % GRAN MAT x10^3(ANC) (test code = 8167210018) 5.08 10*3/uL 1.88-7.09 IMM GRAN x10^3 (test code = 0358602086) 0.05 10*3/uL 0.00-0.06 LYMPH x10^3 (test code = 731-0) 1.47 10*3/uL 1.32-3.29 MONO x10^3 (test code = 742-7) 0.39 10*3/uL 0.33-0.92 EOS x10^3 (test code = 711-2) 0.38 10*3/uL 0.03-0.39 BASO x10^3 (test code = 704-7) 0.04 10*3/uL 0.01-0.07 Lab Interpretation (test code = 85970-8) Abnormal [facility] WITH [id number] 17:18:52* Test Item Value Reference Range Interpretation Comme nts WBC (test code = 6690-2) 7.41 See_Comment [[employer]] The system which generated this result transmitted reference range: 4.30 - 11.10 10*3/?L. The reference range was not used to interpret this result as normal/abnormal. RBC (test code = 789-8) 4.20 See_Comment [[employer]] The system which generated this result transmitted [...] g/dL 31.6-35.1 L RDW-SD (test code = 17086-5) 46.2 fL 39.0-49.9 RDW-CV (test code = 788-0) 17.9 % 12.0-15.5 H PLT (test code = 777-3) 304 See_Comment [Automated messa ge] The system which generated this result transmitted reference range: 166 - 358 10*3/?L. The reference range was not used to interpret this result as normal/abnormal. MPV (test code = 45526-2) 11.0 fL 9.5-12.9 NRBC/100 WBC (test code = 0969112174) 0.0 See_Comment [[employer]ated [employer]] The system which generated this result transmitted reference range: 0.0 - 10.0 /100 WBCs. The reference range was not used to interpret this result as normal/abnormal. NRBC x10^3 (test code = 0380621594) See_Comment [Automated messa ge] The system which generated this result transmitted reference range: 10*3/?L. The reference range was not used to interpret this result as normal/abnormal. GRAN MAT (NEUT) % (test code = 770-8) 68.6 % IMM GRAN % (test code = 4595882431) 0.70 % LYMPH % (test code = 736-9) 19.8 % MONO % (test code = 5905-5) 5.3 % EOS % (test code = 713-8) 5.1 % BASO % (test code = 706-2) 0.5 % GRAN MAT x10^3(ANC) (test code = 4187443519) 5.08 10*3/uL 1.88-7.09 IMM GRAN x10^3 (test code = 4643885776) 0.05 10*3/uL 0.00-0.06 LYMPH x10^3 (test code = 731-0) 1.47 10*3/uL 1.32-3.29 MONO x10^3 (test code = 742-7) 0.39 10*3/uL 0.33-0.92 EOS x10^3 (test code = 711-2) 0.38 10*3/uL 0.03-0.39 BASO x10^3 (test code = 704-7) 0.04 10*3/uL 0.01-0.07 Lab Interpretation (test code = 35686-3) Abnormal [facility] WITH [id number] 17:18:52* Test Item Value Reference Range Interpretation [...] g/dL 31.6-35.1 L RDW-SD (test code = 98066-2) 46.2 fL 39.0-49.9 RDW-CV (test code = 788-0) 17.9 % 12.0-15.5 H PLT (test code = 777-3) 304 See_Comment [Automated messa ge] The system which generated this result transmitted reference range: 166 - 358 10*3/?L. The reference range was not used to interpret this result as normal/abnormal. MPV (test code = 47700-6) 11.0 fL 9.5-12.9 NRBC/100 WBC (test code = 0252209785) 0.0 See_Comment [Automated [employer]] The system which generated this result transmitted reference range: 0.0 - 10.0 /100 WBCs. The reference range was not used to interpret this result as normal/abnormal. NRBC x10^3 (test code = 0782415757) See_Comment [Automated messa ge] The system which generated this result transmitted reference range: 10*3/?L. The reference range was not used to interpret this result as normal/abnormal. GRAN MAT (NEUT) % (test code = 770-8) 68.6 % IMM GRAN % (test code = 0863127674) 0.70 % LYMPH % (test code = 736-9) 19.8 % MONO % (test code = 5905-5) 5.3 % EOS % (test code = 713-8) 5.1 % BASO % (test code = 706-2) 0.5 % GRAN MAT x10^3(ANC) (test code = 7729809038) 5.08 10*3/uL 1.88-7.09 IMM GRAN x10^3 (test code = 3699603197) 0.05 10*3/uL 0.00-0.06 LYMPH x10^3 (test code = 731-0) 1.47 10*3/uL 1.32-3.29 MONO x10^3 (test code = 742-7) 0.39 10*3/uL 0.33-0.92 EOS x10^3 (test code = 711-2) 0.38 10*3/uL 0.03-0.39 BASO x10^3 (test code = 704-7) 0.04 10*3/uL 0.01-0.07 Lab Interpretation (test code = 75257-2) Abnormal [facility] WITH [id number] 17:18:52* Test Item Value Reference Range Interpretation [...] g/dL 31.6-35.1 L RDW-SD (test code = 20913-5) 46.2 fL 39.0-49.9 RDW-CV (test code = 788-0) 17.9 % 12.0-15.5 H PLT (test code = 777-3) 304 See_Comment [[employer]] The system which generated this result transmitted reference range: 166 - 358 10*3/?L. The reference range was not used to interpret this result as normal/abnormal. MPV (test code = 96698-5) 11.0 fL 9.5-12.9 NRBC/100 WBC (test code = 5670276904) 0.0 See_Comment [Automated [employer]] The system which generated this result transmitted reference range: 0.0 - 10.0 /100 WBCs. The reference range was not used to interpret this result as normal/abnormal. NRBC x10^3 (test code = 9545336419) See_Comment [[employer]] The system which generated this result transmitted reference range: 10*3/?L. The reference range was not used to interpret this result as normal/abnormal. GRAN MAT (NEUT) % (test code = 770-8) 68.6 % IMM GRAN % (test code = 0228510678) 0.70 % LYMPH % (test code = 736-9) 19.8 % MONO % (test code = 5905-5) 5.3 % EOS % (test code = 713-8) 5.1 % BASO % (test code = 706-2) 0.5 % GRAN MAT x10^3(ANC) (test code = 3449828984) 5.08 10*3/uL 1.88-7.09 IMM GRAN x10^3 (test code = 8551182366) 0.05 10*3/uL 0.00-0.06 LYMPH x10^3 (test code = 731-0) 1.47 10*3/uL 1.32-3.29 MONO x10^3 (test code = 742-7) 0.39 10*3/uL 0.33-0.92 EOS x10^3 (test code = 711-2) 0.38 10*3/uL 0.03-0.39 BASO x10^3 (test code = 704-7) 0.04 10*3/uL 0.01-0.07 Lab Interpretation (test code = 36067-0) Abnormal [facility] WITH [id number] 17:18:52* Test Item Value Reference Range Interpretation [...] g/dL 31.6-35.1 L RDW-SD (test code = 08986-1) 46.2 fL 39.0-49.9 RDW-CV (test code = 788-0) 17.9 % 12.0-15.5 H PLT (test code = 777-3) 304 See_Comment [Automated messa ge] The system which generated this result transmitted reference range: 166 - 358 10*3/?L. The reference range was not used to interpret this result as normal/abnormal. MPV (test code = 96431-3) 11.0 fL 9.5-12.9 NRBC/100 WBC (test code = 4238328573) 0.0 See_Comment [Automated [employer] ssage] The system which generated this result transmitted reference range: 0.0 - 10.0 /100 WBCs. The reference range was not used to interpret this result as normal/abnormal. NRBC x10^3 (test code = 0300443271) See_Comment [Automated messa ge] The system which generated this result transmitted reference range: 10*3/?L. The reference range was not used to interpret this result as normal/abnormal. GRAN MAT (NEUT) % (test code = 770-8) 68.6 % IMM GRAN % (test code = 8058757251) 0.70 % LYMPH % (test code = 736-9) 19.8 % MONO % (test code = 5905-5) 5.3 % EOS % (test code = 713-8) 5.1 % BASO % (test code = 706-2) 0.5 % GRAN MAT x10^3(ANC) (test code = 5200389377) 5.08 10*3/uL 1.88-7.09 IMM GRAN x10^3 (test code = 6022963494) 0.05 10*3/uL 0.00-0.06 LYMPH x10^3 (test code = 731-0) 1.47 10*3/uL 1.32-3.29 MONO x10^3 (test code = 742-7) 0.39 10*3/uL 0.33-0.92 EOS x10^3 (test code = 711-2) 0.38 10*3/uL 0.03-0.39 BASO x10^3 (test code = 704-7) 0.04 10*3/uL 0.01-0.07 Lab Interpretation (test code = 53198-0) Abnormal [facility] WITH [id number] 17:18:52* Test Item Value Reference Range Interpretation [...] g/dL 31.6-35.1 L RDW-SD (test code = 66208-4) 46.2 fL 39.0-49.9 RDW-CV (test code = 788-0) 17.9 % 12.0-15.5 H PLT (test code = 777-3) 304 See_Comment [Automated messa ge] The system which generated this result transmitted reference range: 166 - 358 10*3/?L. The reference range was not used to interpret this result as normal/abnormal. MPV (test code = 18290-3) 11.0 fL 9.5-12.9 NRBC/100 WBC (test code = 3616517777) 0.0 See_Comment [Automated [employer] ssage] The system which generated this result transmitted reference range: 0.0 - 10.0 /100 WBCs. The reference range was not used to interpret this result as normal/abnormal. NRBC x10^3 (test code = 1707792498) See_Comment [Automated messa ge] The system which generated this result transmitted reference range: 10*3/?L. The reference range was not used to interpret this result as normal/abnormal. GRAN MAT (NEUT) % (test code = 770-8) 68.6 % IMM GRAN % (test code = 0247591982) 0.70 % LYMPH % (test code = 736-9) 19.8 % MONO % (test code = 5905-5) 5.3 % EOS % (test code = 713-8) 5.1 % BASO % (test code = 706-2) 0.5 % GRAN MAT x10^3(ANC) (test code = 8671541459) 5.08 10*3/uL 1.88-7.09 IMM GRAN x10^3 (test code = 4375855394) 0.05 10*3/uL 0.00-0.06 LYMPH x10^3 (test code = 731-0) 1.47 10*3/uL 1.32-3.29 MONO x10^3 (test code = 742-7) 0.39 10*3/uL 0.33-0.92 EOS x10^3 (test code = 711-2) 0.38 10*3/uL 0.03-0.39 BASO x10^3 (test code = 704-7) 0.04 10*3/uL 0.01-0.07 Lab Interpretation (test code = 52604-5) Abnormal [facility] WITH [id number] 17:18:52* Test Item Value Reference Range Interpretation [...] g/dL 31.6-35.1 L RDW-SD (test code = 96296-1) 46.2 fL 39.0-49.9 RDW-CV (test code = 788-0) 17.9 % 12.0-15.5 H PLT (test code = 777-3) 304 See_Comment [Automated messa ge] The system which generated this result transmitted reference range: 166 - 358 10*3/?L. The reference range was not used to interpret this result as normal/abnormal. MPV (test code = 37654-2) 11.0 fL 9.5-12.9 NRBC/100 WBC (test code = 8720695889) 0.0 See_Comment [Automated me ssage] The system which generated this result transmitted reference range: 0.0 - 10.0 /100 WBCs. The reference range was not used to interpret this result as normal/abnormal. NRBC x10^3 (test code = 1066152030) See_Comment [Automated messa ge] The system which generated this result transmitted reference range: 10*3/?L. The reference range was not used to interpret this result as normal/abnormal. GRAN MAT (NEUT) % (test code = 770-8) 68.6 % IMM GRAN % (test code = 1252838866) 0.70 % LYMPH % (test code = 736-9) 19.8 % MONO % (test code = 5905-5) 5.3 % EOS % (test code = 713-8) 5.1 % BASO % (test code = 706-2) 0.5 % GRAN MAT x10^3(ANC) (test code = 8099232143) 5.08 10*3/uL 1.88-7.09 IMM GRAN x10^3 (test code = 2666118664) 0.05 10*3/uL 0.00-0.06 LYMPH x10^3 (test code = 731-0) 1.47 10*3/uL 1.32-3.29 MONO x10^3 (test code = 742-7) 0.39 10*3/uL 0.33-0.92 EOS x10^3 (test code = 711-2) 0.38 10*3/uL 0.03-0.39 BASO x10^3 (test code = 704-7) 0.04 10*3/uL 0.01-0.07 Lab Interpretation (test code = 68340-3) Abnormal [facility] WITH [id number] 17:18:52* Test Item Value Reference Range Interpretation [...] g/dL 31.6-35.1 L RDW-SD (test code = 31456-0) 46.2 fL 39.0-49.9 RDW-CV (test code = 788-0) 17.9 % 12.0-15.5 H PLT (test code = 777-3) 304 See_Comment [Automated messa ge] The system which generated this result transmitted reference range: 166 - 358 10*3/?L. The reference range was not used to interpret this result as normal/abnormal. MPV (test code = 92038-4) 11.0 fL 9.5-12.9 NRBC/100 WBC (test code = 1329958139) 0.0 See_Comment [Automated Kranem ssage] The system which generated this result transmitted reference range: 0.0 - 10.0 /100 WBCs. The reference range was not used to interpret this result as normal/abnormal. NRBC x10^3 (test code = 8872767522) See_Comment [Automated messa ge] The system which generated this result transmitted reference range: 10*3/?L. The reference range was not used to interpret this result as normal/abnormal. GRAN MAT (NEUT) % (test code = 770-8) 68.6 % IMM GRAN % (test code = 2699816287) 0.70 % LYMPH % (test code = 736-9) 19.8 % MONO % (test code = 5905-5) 5.3 % EOS % (test code = 713-8) 5.1 % BASO % (test code = 706-2) 0.5 % GRAN MAT x10^3(ANC) (test code = 7021078930) 5.08 10*3/uL 1.88-7.09 IMM GRAN x10^3 (test code = 2920625845) 0.05 10*3/uL 0.00-0.06 LYMPH x10^3 (test code = 731-0) 1.47 10*3/uL 1.32-3.29 MONO x10^3 (test code = 742-7) 0.39 10*3/uL 0.33-0.92 EOS x10^3 (test code = 711-2) 0.38 10*3/uL 0.03-0.39 BASO x10^3 (test code = 704-7) 0.04 10*3/uL 0.01-0.07 Lab Interpretation (test code = 20738-3) Abnormal [facility] WITH [id number] 17:18:52* Test Item Value Reference Range Interpretation [...] g/dL 31.6-35.1 L RDW-SD (test code = 77969-9) 46.2 fL 39.0-49.9 RDW-CV (test code = 788-0) 17.9 % 12.0-15.5 H PLT (test code = 777-3) 304 See_Comment [Automated messa ge] The system which generated this result transmitted reference range: 166 - 358 10*3/?L. The reference range was not used to interpret this result as normal/abnormal. MPV (test code = 90475-5) 11.0 fL 9.5-12.9 NRBC/100 WBC (test code = 0850545198) 0.0 See_Comment [Automated Kranem ssage] The system which generated this result transmitted reference range: 0.0 - 10.0 /100 WBCs. The reference range was not used to interpret this result as normal/abnormal. NRBC x10^3 (test code = 7363410484) See_Comment [Automated Sympoza ge] The system which generated this result transmitted reference range: 10*3/?L. The reference range was not used to interpret this result as normal/abnormal. GRAN MAT (NEUT) % (test code = 770-8) 68.6 % IMM GRAN % (test code = 5087777922) 0.70 % LYMPH % (test code = 736-9) 19.8 % MONO % (test code = 5905-5) 5.3 % EOS % (test code = 713-8) 5.1 % BASO % (test code = 706-2) 0.5 % GRAN MAT x10^3(ANC) (test code = 3252606319) 5.08 10*3/uL 1.88-7.09 IMM GRAN x10^3 (test code = 9474050999) 0.05 10*3/uL 0.00-0.06 LYMPH x10^3 (test code = 731-0) 1.47 10*3/uL 1.32-3.29 MONO x10^3 (test code = 742-7) 0.39 10*3/uL 0.33-0.92 EOS x10^3 (test code = 711-2) 0.38 10*3/uL 0.03-0.39 BASO x10^3 (test code = 704-7) 0.04 10*3/uL 0.01-0.07 Lab Interpretation (test code = 02133-6) Abnormal [facility] WITH [id number] 17:18:52* Test Item Value Reference Range Interpretation [...] g/dL 31.6-35.1 L RDW-SD (test code = 67403-7) 46.2 fL 39.0-49.9 RDW-CV (test code = 788-0) 17.9 % 12.0-15.5 H PLT (test code = 777-3) 304 See_Comment [Automated messa ge] The system which generated this result transmitted reference range: 166 - 358 10*3/?L. The reference range was not used to interpret this result as normal/abnormal. MPV (test code = 89951-6) 11.0 fL 9.5-12.9 NRBC/100 WBC (test code = 5299187581) 0.0 See_Comment [Automated me ssage] The system which generated this result transmitted reference range: 0.0 - 10.0 /100 WBCs. The reference range was not used to interpret this result as normal/abnormal. NRBC x10^3 (test code = 3341875360) See_Comment [Automated messa ge] The system which generated this result transmitted reference range: 10*3/?L. The reference range was not used to interpret this result as normal/abnormal. GRAN MAT (NEUT) % (test code = 770-8) 68.6 % IMM GRAN % (test code = 2931608826) 0.70 % LYMPH % (test code = 736-9) 19.8 % MONO % (test code = 5905-5) 5.3 % EOS % (test code = 713-8) 5.1 % BASO % (test code = 706-2) 0.5 % GRAN MAT x10^3(ANC) (test code = 8529377304) 5.08 10*3/uL 1.88-7.09 IMM GRAN x10^3 (test code = 3327298349) 0.05 10*3/uL 0.00-0.06 LYMPH x10^3 (test code = 731-0) 1.47 10*3/uL 1.32-3.29 MONO x10^3 (test code = 742-7) 0.39 10*3/uL 0.33-0.92 EOS x10^3 (test code = 711-2) 0.38 10*3/uL 0.03-0.39 BASO x10^3 (test code = 704-7) 0.04 10*3/uL 0.01-0.07 Lab Interpretation (test code = 95156-9) Abnormal [facility] WITH [id number] 17:18:52* Test Item Value Reference Range Interpretation Comme nts WBC (test code = 6690-2) 7.41 See_Comment [Automated messa ge] The system which generated this result transmitted reference range: 4.30 - 11.10 10*3/?L. The reference range was not used to interpret this result as normal/abnormal. RBC (test code = 789-8) 4.20 See_Comment [Automated Sympoza ge] The system which generated this result [...] g/dL 31.6-35.1 L RDW-SD (test code = 12059-3) 46.2 fL 39.0-49.9 RDW-CV (test code = 788-0) 17.9 % 12.0-15.5 H PLT (test code = 777-3) 304 See_Comment [Automated Sympoza ge] The system which generated this result transmitted reference range: 166 - 358 10*3/?L. The reference range was not used to interpret this result as normal/abnormal. MPV (test code = 69000-1) 11.0 fL 9.5-12.9 NRBC/100 WBC (test code = 8372096833) 0.0 See_Comment [Automated Kranem ssage] The system which generated this result transmitted reference range: 0.0 - 10.0 /100 WBCs. The reference range was not used to interpret this result as normal/abnormal. NRBC x10^3 (test code = 4844776518) See_Comment [Automated Sympoza ge] The system which generated this result transmitted reference range: 10*3/?L. The reference range was not used to interpret this result as normal/abnormal. GRAN MAT (NEUT) % (test code = 770-8) 68.6 % IMM GRAN % (test code = 5821042923) 0.70 % LYMPH % (test code = 736-9) 19.8 % MONO % (test code = 5905-5) 5.3 % EOS % (test code = 713-8) 5.1 % BASO % (test code = 706-2) 0.5 % GRAN MAT x10^3(ANC) (test code = 9324181957) 5.08 10*3/uL 1.88-7.09 IMM GRAN x10^3 (test code = 3171920186) 0.05 10*3/uL 0.00-0.06 LYMPH x10^3 (test code = 731-0) 1.47 10*3/uL 1.32-3.29 MONO x10^3 (test code = 742-7) 0.39 10*3/uL 0.33-0.92 EOS x10^3 (test code = 711-2) 0.38 10*3/uL 0.03-0.39 BASO x10^3 (test code = 704-7) 0.04 10*3/uL 0.01-0.07 Lab Interpretation (test code = 21863-9) Abnormal [facility] WITH [id number] 17:18:52* Test Item Value Reference Range Interpretation Comme nts WBC (test code = 6690-2) 7.41 See_Comment [Automated Sympoza ge] The system which generated this result transmitted reference range: 4.30 - 11.10 10*3/?L. The reference range was not used to interpret this result as normal/abnormal. RBC (test code = 789-8) 4.20 See_Comment [Automated Sympoza ge] The system which generated this result [...] g/dL 31.6-35.1 L RDW-SD (test code = 47175-5) 46.2 fL 39.0-49.9 RDW-CV (test code = 788-0) 17.9 % 12.0-15.5 H PLT (test code = 777-3) 304 See_Comment [Automated messa ge] The system which generated this result transmitted reference range: 166 - 358 10*3/?L. The reference range was not used to interpret this result as normal/abnormal. MPV (test code = 03587-7) 11.0 fL 9.5-12.9 NRBC/100 WBC (test code = 4170506571) 0.0 See_Comment [Automated Kranem ssage] The system which generated this result transmitted reference range: 0.0 - 10.0 /100 WBCs. The reference range was not used to interpret this result as normal/abnormal. NRBC x10^3 (test code = 0627381312) See_Comment [Automated messa ge] The system which generated this result transmitted reference range: 10*3/?L. The reference range was not used to interpret this result as normal/abnormal. GRAN MAT (NEUT) % (test code = 770-8) 68.6 % IMM GRAN % (test code = 7419567151) 0.70 % LYMPH % (test code = 736-9) 19.8 % MONO % (test code = 5905-5) 5.3 % EOS % (test code = 713-8) 5.1 % BASO % (test code = 706-2) 0.5 % GRAN MAT x10^3(ANC) (test code = 5333623441) 5.08 10*3/uL 1.88-7.09 IMM GRAN x10^3 (test code = 2283935694) 0.05 10*3/uL 0.00-0.06 LYMPH x10^3 (test code = 731-0) 1.47 10*3/uL 1.32-3.29 MONO x10^3 (test code = 742-7) 0.39 10*3/uL 0.33-0.92 EOS x10^3 (test code = 711-2) 0.38 10*3/uL 0.03-0.39 BASO x10^3 (test code = 704-7) 0.04 10*3/uL 0.01-0.07 Lab Interpretation (test code = 74281-1) Abnormal [facility] [id number] 16:24:00* Test Item Value Reference Range Interpretation Comme nts POCT PREG (test code = 1605) Negative On board controls acceptable with C Line (test code = 3574) Yes POCT PREG LOT # (test code = 3575) [id number] POCT PREG TEST DATE ( test code = 3576) 04-11-2024 Lab Interpretation (test cod e = 86439-1) [facility] [id number] 16:24:00* Test Item Value Reference Range Interpretation Comme nts POCT PREG (test code = 1605) Negative On board controls acceptable with C Line (test code = 3574) Yes POCT PREG LOT # (test code = 3575) [id number] POCT PREG TEST DATE ( test code = 3576) 04-11-2024 Lab Interpretation (test cod e = 92673-9) [facility] [id number] 16:24:00* Test Item Value Reference Range Interpretation Comme nts POCT PREG (test code = 1605) Negative On board controls acceptable with C Line (test code = 3574) Yes POCT PREG LOT # (test code = 3575) [id number] POCT PREG TEST DATE ( test code = 3576) 04-11-2024 Lab Interpretation (test cod e = 38813-9) [facility] [id number] 16:24:00* Test Item Value Reference Range Interpretation Comme nts POCT PREG (test code = 1605) Negative On board controls acceptable with C Line (test code = 3574) Yes POCT PREG LOT # (test code = 3575) 486045 POCT PREG TEST DATE ( test code = 3576) 04-11-2024 Lab Interpretation (test cod e = 69534-6) [facility] [id number] 16:24:00* Test Item Value Reference Range Interpretation Comme nts POCT PREG (test code = 1605) Negative On board controls acceptable with C Line (test code = 3574) Yes POCT PREG LOT # (test code = 3575) [id number] POCT PREG TEST DATE ( test code = 3576) 04-11-2024 Lab Interpretation (test cod e = 99933-3) [facility] [id number] 16:24:00* Test Item Value Reference Range Interpretation Comme nts POCT PREG (test code = 1605) Negative On board controls acceptable with C Line (test code = 3574) Yes POCT PREG LOT # (test code = 3575) 906441 POCT PREG TEST DATE ( test code = 3576) 04-11-2024 Lab Interpretation (test cod e = 23264-4) [facility] [id number] 16:24:00* Test Item Value Reference Range Interpretation Comme nts POCT PREG (test code = 1605) Negative On board controls acceptable with C Line (test code = 3574) Yes POCT PREG LOT # (test code = 3575) [id number] POCT PREG TEST DATE ( test code = 3576) 04-11-2024 Lab Interpretation (test cod e = 87713-4) [facility] [id number] 16:24:00* Test Item Value Reference Range Interpretation Comme nts POCT PREG (test code = 1605) Negative On board controls acceptable with C Line (test code = 3574) Yes POCT PREG LOT # (test code = 3575) 638207 POCT PREG TEST DATE ( test code = 3576) 04-11-2024 Lab Interpretation (test cod e = 05579-0) [facility] [id number] 16:24:00* Test Item Value Reference Range Interpretation Comme nts POCT PREG (test code = 1605) Negative On board controls acceptable with C Line (test code = 3574) Yes POCT PREG LOT # (test code = 3575) 538404 POCT PREG TEST DATE ( test code = 3576) 04-11-2024 Lab Interpretation (test cod e = 38842-9) [facility] [id number] 16:24:00* Test Item Value Reference Range Interpretation Comme nts POCT PREG (test code = 1605) Negative On board controls acceptable with C Line (test code = 3574) Yes POCT PREG LOT # (test code = 3575) 268796 POCT PREG TEST DATE ( test code = 3576) 04-11-2024 Lab Interpretation (test cod e = 63905-7) [facility] [id number] 16:24:00* Test Item Value Reference Range Interpretation Comme nts POCT PREG (test code = 1605) Negative On board controls acceptable with C Line (test code = 3574) Yes POCT PREG LOT # (test code = 3575) 784971 POCT PREG TEST DATE ( test code = 3576) 04-11-2024 Lab Interpretation (test cod e = 11523-1) [facility] [id number] 16:24:00* Test Item Value Reference Range Interpretation Comme nts POCT PREG (test code = 1605) Negative On board controls acceptable with C Line (test code = 3574) Yes POCT PREG LOT # (test code = 3575) 458363 POCT PREG TEST DATE ( test code = 3576) 04-11-2024 Lab Interpretation (test cod e = 35204-9) [facility] [id number] 16:24:00* Test Item Value Reference Range Interpretation Comme nts POCT PREG (test code = 1605) Negative On board controls acceptable with C Line (test code = 3574) Yes POCT PREG LOT # (test code = 3575) 533477 POCT PREG TEST DATE ( test code = 3576) 04-11-2024 Lab Interpretation (test cod e = 34417-3) [facility] [id number] 16:24:00* Test Item Value Reference Range Interpretation Comme nts POCT PREG (test code = 1605) Negative On board controls acceptable with C Line (test code = 3574) Yes POCT PREG LOT # (test code = 3575) 221750 POCT PREG TEST DATE ( test code = 3576) 04-11-2024 Lab Interpretation (test cod e = 51454-0) [facility] [id number] 16:24:00* Test Item Value Reference Range Interpretation Comme nts POCT PREG (test code = 1605) Negative On board controls acceptable with C Line (test code = 3574) Yes POCT PREG LOT # (test code = 3575) 263647 POCT PREG TEST DATE ( test code = 3576) 04-11-2024 Lab Interpretation (test cod e = 15210-2) [facility] [id number] 16:24:00* Test Item Value Reference Range Interpretation Comme nts POCT PREG (test code = 1605) Negative On board controls acceptable with C Line (test code = 3574) Yes POCT PREG LOT # (test code = 3575) 394896 POCT PREG TEST DATE ( test code = 3576) 04-11-2024 Lab Interpretation (test cod e = 59734-8) [facility] [id number] 16:24:00* Test Item Value Reference Range Interpretation Comme nts POCT PREG (test code = 1605) Negative On board controls acceptable with C Line (test code = 3574) Yes POCT PREG LOT # (test code = 3575) 118296 POCT PREG TEST DATE ( test code = 3576) 04-11-2024 Lab Interpretation (test cod e = 71937-3) [facility] [id number] 16:24:00* Test Item Value Reference Range Interpretation Comme nts POCT PREG (test code = 1605) Negative On board controls acceptable with C Line (test code = 3574) Yes POCT PREG LOT # (test code = 3575) 788421 POCT PREG TEST DATE ( test code = 3576) 04-11-2024 [facility]test cod e = 24525-6[facility] [id number] 19:09:14 * Test Item Value Reference Range Interpretation Comme nts Tissue Transglutaminase (tTG) Ab, IgA Interpretation (test code = 03833-7) Negative Negative Deamidated Gliadin Peptide (DGP) Ab, IgA Interpretation (test code = 21543-7) Negative Negative Tissue Transglutaminase (tTG) Ab, IgA (test code = 7544524516) <=7.0 Deamidated Gliadin Peptide (DGP) Ab, IgA (test code = 5038867535) 0.4 U/mL <=7.0 ZAINAB (test code = ZAINAB) < 7 U/mL ? Negative7 - 10 U/mL ?Equivocal> 10 U/mL ?Positive In case of equivocal results, we recommend to retest the patient after 8 -12 weeks. Lab Interpretation (test code = 93692-3) Normal [facility] ONLY CELIAC SCREEN [id number] 19:09:14 * Test Item Value Reference Range Interpretation Comme nts Tissue Transglutaminase (tTG) Ab, IgA Interpretation (test code = 41521-6) Negative Negative Deamidated Gliadin Peptide (DGP) Ab, IgA Interpretation (test code = 90365-9) Negative Negative Tissue Transglutaminase (tTG) Ab, IgA (test code = 0102552642) <=7.0 Deamidated Gliadin Peptide (DGP) Ab, IgA (test code = 1633084356) 0.4 U/mL <=7.0 ZAINAB (test code = ZAINAB) < 7 U/mL ? Negative7 - 10 U/mL ?Equivocal> 10 U/mL ?Positive In case of equivocal results, we recommend to retest the patient after 8 -12 weeks. Lab Interpretation (test code = 84386-8) Normal [facility] ONLY CELIAC SCREEN [id number] 19:09:14 * Test Item Value Reference Range Interpretation Comme nts Tissue Transglutaminase (tTG) Ab, IgA Interpretation (test code = 96703-7) Negative Negative Deamidated Gliadin Peptide (DGP) Ab, IgA Interpretation (test code = 48545-4) Negative Negative Tissue Transglutaminase (tTG) Ab, IgA (test code = 1640539064) <=7.0 Deamidated Gliadin Peptide (DGP) Ab, IgA (test code = 7302297084) 0.4 U/mL <=7.0 ZAINAB (test code = ZAINAB) < 7 U/mL ? Negative7 - 10 U/mL ?Equivocal> 10 U/mL ?Positive In case of equivocal results, we recommend to retest the patient after 8 -12 weeks. Lab Interpretation (test code = 50564-4) Normal [facility] ONLY CELIAC SCREEN [id number] 19:09:14 * Test Item Value Reference Range Interpretation Comme nts Tissue Transglutaminase (tTG) Ab, IgA Interpretation (test code = 80234-4) Negative Negative Deamidated Gliadin Peptide (DGP) Ab, IgA Interpretation (test code = 79995-5) Negative Negative Tissue Transglutaminase (tTG) Ab, IgA (test code = 6640772588) <=7.0 Deamidated Gliadin Peptide (DGP) Ab, IgA (test code = 8853094948) 0.4 U/mL <=7.0 ZAINAB (test code = ZAINAB) < 7 U/mL ? Negative7 - 10 U/mL ?Equivocal> 10 U/mL ?Positive In case of equivocal results, we recommend to retest the patient after 8 -12 weeks. Lab Interpretation (test code = 52902-8) Normal [facility] ONLY CELIAC SCREEN [id number] 19:09:14 * Test Item Value Reference Range Interpretation Comme nts Tissue Transglutaminase (tTG) Ab, IgA Interpretation (test code = 23620-4) Negative Negative Deamidated Gliadin Peptide (DGP) Ab, IgA Interpretation (test code = 45670-9) Negative Negative Tissue Transglutaminase (tTG) Ab, IgA (test code = 7181461178) <=7.0 Deamidated Gliadin Peptide (DGP) Ab, IgA (test code = 4160886660) 0.4 U/mL <=7.0 ZAINAB (test code = ZAINAB) < 7 U/mL ? Negative7 - 10 U/mL ?Equivocal> 10 U/mL ?Positive In case of equivocal results, we recommend to retest the patient after 8 -12 weeks. Lab Interpretation (test code = 63994-9) Normal [facility] ONLY CELIAC SCREEN [id number] 19:09:14 * Test Item Value Reference Range Interpretation Comme nts Tissue Transglutaminase (tTG) Ab, IgA Interpretation (test code = 94328-0) Negative Negative Deamidated Gliadin Peptide (DGP) Ab, IgA Interpretation (test code = 25771-5) Negative Negative Tissue Transglutaminase (tTG) Ab, IgA (test code = 0154913793) <=7.0 Deamidated Gliadin Peptide (DGP) Ab, IgA (test code = 9916608646) 0.4 U/mL <=7.0 ZAINAB (test code = ZAINAB) < 7 U/mL ? Negative7 - 10 U/mL ?Equivocal> 10 U/mL ?Positive In case of equivocal results, we recommend to retest the patient after 8 -12 weeks. Lab Interpretation (test code = 28921-3) Normal [facility] ONLY CELIAC SCREEN [id number] 19:09:14 * Test Item Value Reference Range Interpretation Comme nts Tissue Transglutaminase (tTG) Ab, IgA Interpretation (test code = 96432-0) Negative Negative Deamidated Gliadin Peptide (DGP) Ab, IgA Interpretation (test code = 27352-7) Negative Negative Tissue Transglutaminase (tTG) Ab, IgA (test code = 4481141411) <=7.0 Deamidated Gliadin Peptide (DGP) Ab, IgA (test code = 9988391295) 0.4 U/mL <=7.0 ZAINAB (test code = ZAINAB) < 7 U/mL ? Negative7 - 10 U/mL ?Equivocal> 10 U/mL ?Positive In case of equivocal results, we recommend to retest the patient after 8 -12 weeks. Lab Interpretation (test code = 92524-5) Normal [facility] ONLY CELIAC SCREEN [id number] 19:09:14 * Test Item Value Reference Range Interpretation Comme nts Tissue Transglutaminase (tTG) Ab, IgA Interpretation (test code = 76651-7) Negative Negative Deamidated Gliadin Peptide (DGP) Ab, IgA Interpretation (test code = 26446-2) Negative Negative Tissue Transglutaminase (tTG) Ab, IgA (test code = 2476173108) <=7.0 Deamidated Gliadin Peptide (DGP) Ab, IgA (test code = 0669810722) 0.4 U/mL <=7.0 ZAINAB (test code = ZAINAB) < 7 U/mL ? Negative7 - 10 U/mL ?Equivocal> 10 U/mL ?Positive In case of equivocal results, we recommend to retest the patient after 8 -12 weeks. Lab Interpretation (test code = 34789-3) Normal [facility] ONLY CELIAC SCREEN [id number] 19:09:14 * Test Item Value Reference Range Interpretation Comme nts Tissue Transglutaminase (tTG) Ab, IgA Interpretation (test code = 11024-7) Negative Negative Deamidated Gliadin Peptide (DGP) Ab, IgA Interpretation (test code = 84930-0) Negative Negative Tissue Transglutaminase (tTG) Ab, IgA (test code = 7710619943) <=7.0 Deamidated Gliadin Peptide (DGP) Ab, IgA (test code = 7154372197) 0.4 U/mL <=7.0 ZAINAB (test code = ZAINAB) < 7 U/mL ? Negative7 - 10 U/mL ?Equivocal> 10 U/mL ?Positive In case of equivocal results, we recommend to retest the patient after 8 -12 weeks. Lab Interpretation (test code = 28501-4) Normal [facility] ONLY CELIAC SCREEN [id number] 19:09:14 * Test Item Value Reference Range Interpretation Comme nts Tissue Transglutaminase (tTG) Ab, IgA Interpretation (test code = 80279-4) Negative Negative Deamidated Gliadin Peptide (DGP) Ab, IgA Interpretation (test code = 38502-5) Negative Negative Tissue Transglutaminase (tTG) Ab, IgA (test code = 6936905031) <=7.0 Deamidated Gliadin Peptide (DGP) Ab, IgA (test code = 5400646072) 0.4 U/mL <=7.0 ZAINAB (test code = ZAINAB) < 7 U/mL ? Negative7 - 10 U/mL ?Equivocal> 10 U/mL ?Positive In case of equivocal results, we recommend to retest the patient after 8 -12 weeks. Lab Interpretation (test code = 23081-4) Normal [facility] ONLY CELIAC SCREEN [id number] 19:09:14 * Test Item Value Reference Range Interpretation Comme nts Tissue Transglutaminase (tTG) Ab, IgA Interpretation (test code = 94970-3) Negative Negative Deamidated Gliadin Peptide (DGP) Ab, IgA Interpretation (test code = 28993-9) Negative Negative Tissue Transglutaminase (tTG) Ab, IgA (test code = 3572078088) <=7.0 Deamidated Gliadin Peptide (DGP) Ab, IgA (test code = 8335416523) 0.4 U/mL <=7.0 ZAINAB (test code = ZAINAB) < 7 U/mL ? Negative7 - 10 U/mL ?Equivocal> 10 U/mL ?Positive In case of equivocal results, we recommend to retest the patient after 8 -12 weeks. Lab Interpretation (test code = 83556-3) Normal [facility] ONLY CELIAC SCREEN [id number] 19:09:14 * Test Item Value Reference Range Interpretation Comme nts Tissue Transglutaminase (tTG) Ab, IgA Interpretation (test code = 23483-1) Negative Negative Deamidated Gliadin Peptide (DGP) Ab, IgA Interpretation (test code = 52523-0) Negative Negative Tissue Transglutaminase (tTG) Ab, IgA (test code = 0092310302) <=7.0 Deamidated Gliadin Peptide (DGP) Ab, IgA (test code = 3355752509) 0.4 U/mL <=7.0 ZAINAB (test code = ZAINAB) < 7 U/mL ? Negative7 - 10 U/mL ?Equivocal> 10 U/mL ?Positive In case of equivocal results, we recommend to retest the patient after 8 -12 weeks. Lab Interpretation (test code = 11002-5) Normal [facility] [id number] 20:24:44* Test Item Value Reference Range Interpretation Comme nts Total IgA (test code = 3373274306) 78.3 U/mL 70-312 Lab Interpretation (test cod e = 76782-7) Normal [facility] [id number] 20:24:44* Test Item Value Reference Range Interpretation Comme nts Total IgA (test code = 4481175436) 78.3 U/mL 70-312 Lab Interpretation (test cod e = 30016-7) Normal [facility]2023-09-07 20:24:44* Test Item Value Reference Range Interpretation Comme nts Total IgA (test code = 2515115788) 78.3 U/mL 70-312 Lab Interpretation (test cod e = 85135-6) Normal [facility]2023-09-07 20:24:44* Test Item Value Reference Range Interpretation Comme nts Total IgA (test code = 3543417644) 78.3 U/mL 70-312 Lab Interpretation (test cod e = 23529-2) Normal [facility]2023-09-07 20:24:44* Test Item Value Reference Range Interpretation Comme nts Total IgA (test code = 4657577625) 78.3 U/mL 70-312 Lab Interpretation (test cod e = 61754-5) Normal [facility]2023-09-07 20:24:44* Test Item Value Reference Range Interpretation Comme nts Total IgA (test code = 7252172321) 78.3 U/mL 70-312 Lab Interpretation (test cod e = 33943-9) [facility]2023-09-07 20:24:44* Test Item Value Reference Range Interpretation Comme nts Total IgA (test code = 9560252197) 78.3 U/mL 70-312 Lab Interpretation (test cod e = 21939-3) Normal [facility]2023-09-07 20:24:44* Test Item Value Reference Range Interpretation Comme nts Total IgA (test code = 8442827741) 78.3 U/mL 70-312 Lab Interpretation (test cod e = 83650-6) Normal [facility]2023-09-07 20:24:44* Test Item Value Reference Range Interpretation Comme nts Total IgA (test code = 8681595079) 78.3 U/mL 70-312 Lab Interpretation (test cod e = 34105-7) [facility]2023-09-07 20:24:44* Test Item Value Reference Range Interpretation Comme nts Total IgA (test code = 2787275401) 78.3 U/mL 70-312 Lab Interpretation (test cod e = 17374-6) Normal [facility] [id number] 20:24:44* Test Item Value Reference Range Interpretation Comme nts Total IgA (test code = 3507267757) 78.3 U/mL 70-312 Lab Interpretation (test cod e = 31439-0) Normal [facility] [id number] 20:24:44* Test Item Value Reference Range Interpretation Comme nts Total IgA (test code = 9497922367) 78.3 U/mL 70-312 Lab Interpretation (test cod e = 31569-1) Normal [facility] [id number] 17:30:19* Test Item Value Reference Range Interpretation Comme nts FERRITIN (test code = 1289380733) 4.8 ng/mL 6.0-137.0 L ZAINAB (test code = ZAINAB) Biotin has been reported to cause a negative bias, interpret results relative to patient's use of biotin. Lab Interpretation (test code = 67258-0) Abnormal [facility] [id number] 17:30:19* Test Item Value Reference Range Interpretation Comme nts FERRITIN (test code = 4882712636) 4.8 ng/mL 6.0-137.0 L ZAINAB (test code = ZAINAB) Biotin has been reported to cause a negative bias, interpret results relative to patient's use of biotin. Lab Interpretation (test code = 43599-0) Abnormal [facility] [id number] 17:30:19* Test Item Value Reference Range Interpretation Comme nts FERRITIN (test code = 8397183087) 4.8 ng/mL 6.0-137.0 L ZAINAB (test code = ZAINAB) Biotin has been reported to cause a negative bias, interpret results relative to patient's use of biotin. Lab Interpretation (test code = 39744-9) Abnormal [facility] [id number] 17:30:19* Test Item Value Reference Range Interpretation Comme nts FERRITIN (test code = 1023973487) 4.8 ng/mL 6.0-137.0 L ZAINAB (test code = ZAINAB) Biotin has been reported to cause a negative bias, interpret results relative to patient's use of biotin. Lab Interpretation (test code = 09961-8) Abnormal [facility] [id number] 17:30:19* Test Item Value Reference Range Interpretation Comme nts FERRITIN (test code = 5979874158) 4.8 ng/mL 6.0-137.0 L ZAINAB (test code = ZAINAB) Biotin has been reported to cause a negative bias, interpret results relative to patient's use of biotin. Lab Interpretation (test code = 71521-4) Abnormal [facility] [id number] 17:30:19* Test Item Value Reference Range Interpretation Comme nts FERRITIN (test code = 7135029399) 4.8 ng/mL 6.0-137.0 L ZAINAB (test code = ZAINAB) Biotin has been reported to cause a negative bias, interpret results relative to patient's use of biotin. Lab Interpretation (test code = 64080-4) Abnormal [facility]2023-09-07 17:30:19* Test Item Value Reference Range Interpretation Comme nts FERRITIN (test code = 3853944386) 4.8 ng/mL 6.0-137.0 L ZAINAB (test code = ZAINAB) Biotin has been reported to cause a negative bias, interpret results relative to patient's use of biotin. Lab Interpretation (test code = 61108-4) Abnormal [facility] [id number] 17:30:19* Test Item Value Reference Range Interpretation Comme nts FERRITIN (test code = 7385120070) 4.8 ng/mL 6.0-137.0 L ZAINAB (test code = ZAINAB) Biotin has been reported to cause a negative bias, interpret results relative to patient's use of biotin. Lab Interpretation (test code = 20899-7) Abnormal [facility] [id number] 17:30:19* Test Item Value Reference Range Interpretation Comme nts FERRITIN (test code = 7761309179) 4.8 ng/mL 6.0-137.0 L ZAINAB (test code = ZAINAB) Biotin has been reported to cause a negative bias, interpret results relative to patient's use of biotin. Lab Interpretation (test code = 27413-1) Abnormal [facility] [id number] 17:30:19* Test Item Value Reference Range Interpretation Comme nts FERRITIN (test code = 0463084191) 4.8 ng/mL 6.0-137.0 L ZAINAB (test code = ZAINAB) Biotin has been reported to cause a negative bias, interpret results relative to patient's use of biotin. Lab Interpretation (test code = 50258-2) Abnormal [facility] [id number] 17:30:19* Test Item Value Reference Range Interpretation Comme nts FERRITIN (test code = 3949448500) 4.8 ng/mL 6.0-137.0 L ZAINAB (test code = ZAINAB) Biotin has been reported to cause a negative bias, interpret results relative to patient's use of biotin. Lab Interpretation (test code = 78572-0) Abnormal [facility] [id number] 17:30:19* Test Item Value Reference Range Interpretation Comme nts FERRITIN (test code = 0770436555) 4.8 ng/mL 6.0-137.0 L ZAINAB (test code = ZAINAB) Biotin has been reported to cause a negative bias, interpret results relative to patient's use of biotin. Lab Interpretation (test code = 38845-3) Abnormal [facility] [id number] 17:03:34* Test Item Value Reference Range Interpretation Comme nts IRON (test code = 7411191913) 34 ug/dL 50-160 L TIBC (test code = 7183274512) 515 ug/dL 250-410 H % FE SAT (test code = 4824390117) 7 % 20-50 L Lab Interpretation (test cod e = 57100-5) Abnormal [facility] [id number] 17:03:34* Test Item Value Reference Range Interpretation Comme nts IRON (test code = 0032668677) 34 ug/dL 50-160 L TIBC (test code = 8441717130) 515 ug/dL 250-410 H % FE SAT (test code = 4810735675) 7 % 20-50 L Lab Interpretation (test cod e = 42716-3) Abnormal [facility] [id number] 17:03:34* Test Item Value Reference Range Interpretation Comme nts IRON (test code = 8808711243) 34 ug/dL 50-160 L TIBC (test code = 8971115774) 515 ug/dL 250-410 H % FE SAT (test code = 6273233913) 7 % 20-50 L Lab Interpretation (test cod e = 29909-4) Abnormal [facility] [id number] 17:03:34* Test Item Value Reference Range Interpretation Comme nts IRON (test code = 6392729315) 34 ug/dL 50-160 L TIBC (test code = 6140406432) 515 ug/dL 250-410 H % FE SAT (test code = 6232525971) 7 % 20-50 L Lab Interpretation (test cod e = 37948-1) Abnormal [facility] [id number] 17:03:34* Test Item Value Reference Range Interpretation Comme nts IRON (test code = 7954464359) 34 ug/dL 50-160 L TIBC (test code = 6081111513) 515 ug/dL 250-410 H % FE SAT (test code = 3450680330) 7 % 20-50 L Lab Interpretation (test cod e = 98921-8) Abnormal [facility] [id number] 17:03:34* Test Item Value Reference Range Interpretation Comme nts IRON (test code = 1085594257) 34 ug/dL 50-160 L TIBC (test code = 0818101992) 515 ug/dL 250-410 H % FE SAT (test code = 6635622102) 7 % 20-50 L Lab Interpretation (test cod e = 08337-6) Abnormal [facility] [id number] 17:03:34* Test Item Value Reference Range Interpretation Comme nts IRON (test code = 8045808773) 34 ug/dL 50-160 L TIBC (test code = 2834707133) 515 ug/dL 250-410 H % FE SAT (test code = 1315271633) 7 % 20-50 L Lab Interpretation (test cod e = 32526-3) Abnormal [facility] [id number] 17:03:34* Test Item Value Reference Range Interpretation Comme nts IRON (test code = 6121535596) 34 ug/dL 50-160 L TIBC (test code = 6456469719) 515 ug/dL 250-410 H % FE SAT (test code = 5200873581) 7 % 20-50 L Lab Interpretation (test cod e = 20565-4) Abnormal [facility] [id number] 17:03:34* Test Item Value Reference Range Interpretation Comme nts IRON (test code = 7425120791) 34 ug/dL 50-160 L TIBC (test code = 4171821175) 515 ug/dL 250-410 H % FE SAT (test code = 0847214791) 7 % 20-50 L Lab Interpretation (test cod e = 06262-0) Abnormal [facility] [id number] 17:03:34* Test Item Value Reference Range Interpretation Comme nts IRON (test code = 3967217028) 34 ug/dL 50-160 L TIBC (test code = 1472039139) 515 ug/dL 250-410 H % FE SAT (test code = 8663666648) 7 % 20-50 L Lab Interpretation (test cod e = 96590-4) Abnormal [facility] [id number] 17:03:34* Test Item Value Reference Range Interpretation Comme nts IRON (test code = 4236822786) 34 ug/dL 50-160 L TIBC (test code = 0823763599) 515 ug/dL 250-410 H % FE SAT (test code = 8084527557) 7 % 20-50 L Lab Interpretation (test cod e = 70612-6) Abnormal [facility] [id number] 17:03:34* Test Item Value Reference Range Interpretation Comme nts IRON (test code = 3168433243) 34 ug/dL 50-160 L TIBC (test code = 8050542482) 515 ug/dL 250-410 H % FE SAT (test code = 4290845095) 7 % 20-50 L Lab Interpretation (test cod e = 15210-5) Abnormal [facility]2023-08-24 19:48:06* Test Item Value Reference Range Interpretation Comme nts Laurium (test code = 6334112500) 0.5 mmol/L 0.6-1.2 L ZAINAB (test code = ZAINAB) Toxic Range: ? Greater than 1.2 mmol/L Lab Interpretation (test code = 56003-3) Abnormal [facility]2023-08-24 19:48:06* Test Item Value Reference Range Interpretation Comme nts Laurium (test code = 1158436824) 0.5 mmol/L 0.6-1.2 L ZAINAB (test code = ZAINAB) Toxic Range: ? Greater than 1.2 mmol/L Lab Interpretation (test code = 08241-4) Abnormal [facility]2023-08-24 19:48:06* Test Item Value Reference Range Interpretation Comme nts Laurium (test code = 7482588559) 0.5 mmol/L 0.6-1.2 L ZAINAB (test code = ZAINAB) Toxic Range: ? Greater than 1.2 mmol/L Lab Interpretation (test code = 77312-9) Abnormal [facility]2023-08-24 19:48:06* Test Item Value Reference Range Interpretation Comme nts Laurium (test code = 7177140858) 0.5 mmol/L 0.6-1.2 L ZAINAB (test code = ZAINAB) Toxic Range: ? Greater than 1.2 mmol/L Lab Interpretation (test code = 04595-6) Abnormal [facility]2023-08-24 19:48:06* Test Item Value Reference Range Interpretation Comme nts Laurium (test code = 0248491500) 0.5 mmol/L 0.6-1.2 L ZAINAB (test code = ZAINAB) Toxic Range: ? Greater than 1.2 mmol/L Lab Interpretation (test code = 24732-7) Abnormal [facility]2023-08-24 19:48:06* Test Item Value Reference Range Interpretation Comme nts Laurium (test code = 4556701116) 0.5 mmol/L 0.6-1.2 L ZAINAB (test code = ZAINAB) Toxic Range: ? Greater than 1.2 mmol/L Lab Interpretation (test code = 04483-4) Abnormal [facility]2023-08-24 19:48:06* Test Item Value Reference Range Interpretation Comme nts Laurium (test code = 6070057649) 0.5 mmol/L 0.6-1.2 L ZAINAB (test code = ZAINAB) Toxic Range: ? Greater than 1.2 mmol/L Lab Interpretation (test code = 62789-4) Abnormal [facility]2023-08-24 19:48:06* Test Item Value Reference Range Interpretation Comme nts Laurium (test code = 2680713792) 0.5 mmol/L 0.6-1.2 L ZAINAB (test code = ZAINAB) Toxic Range: ? Greater than 1.2 mmol/L Lab Interpretation (test code = 79815-2) Abnormal [facility]2023-08-24 19:48:06* Test Item Value Reference Range Interpretation Comme nts Laurium (test code = 3563520321) 0.5 mmol/L 0.6-1.2 L ZAINAB (test code = ZAINAB) Toxic Range: ? Greater than 1.2 mmol/L Lab Interpretation (test code = 44099-1) Abnormal [facility]2023-08-24 19:48:06* Test Item Value Reference Range Interpretation Comme nts Laurium (test code = 7635344456) 0.5 mmol/L 0.6-1.2 L ZAINAB (test code = ZAINBA) Toxic Range: ? Greater than 1.2 mmol/L Lab Interpretation (test code = 96791-3) Abnormal [facility]2023-08-24 19:48:06* Test Item Value Reference Range Interpretation Comme nts Laurium (test code = 7529335766) 0.5 mmol/L 0.6-1.2 L ZAINAB (test code = ZAINAB) Toxic Range: ? Greater than 1.2 mmol/L Lab Interpretation (test code = 65892-8) Abnormal [facility]2023-08-24 19:48:06* Test Item Value Reference Range Interpretation Comme nts Laurium (test code = 9988556894) 0.5 mmol/L 0.6-1.2 L ZAINAB (test code = ZAINAB) Toxic Range: ? Greater than 1.2 mmol/L Lab Interpretation (test code = 13285-3) Abnormal [facility]2023-08-24 19:48:06* Test Item Value Reference Range Interpretation Comme nts Laurium (test code = 4262116814) 0.5 mmol/L 0.6-1.2 L ZAINAB (test code = ZAINAB) Toxic Range: ? Greater than 1.2 mmol/L Lab Interpretation (test code = 59123-3) [facility]* Test Item Value Reference Range Interpretation Comme nts Laurium (test code = 7645379632) 0.5 mmol/L 0.6-1.2 L ZAINAB (test code = ZAINAB) Toxic Range: ? Greater than 1.2 mmol/L Lab Interpretation (test code = 33981-8) [facility] [id number] 17:24:34 * Test Item Value Reference Range Interpretation Comme nts TSH (test code = 2574677307) 1.07 See_Comment [Automated messa ge] The system which generated this result transmitted reference range: 0.45 - 4.70 mIU/L. The reference range was not used to interpret this result as normal/abnormal. Lab Interpretation (test code = 07086-2) [facility] [id number] 17:24:34 * Test Item Value Reference Range Interpretation Comme nts TSH (test code = 5138996402) 1.07 See_Comment [Automated messa ge] The system which generated this result transmitted reference range: 0.45 - 4.70 mIU/L. The reference range was not used to interpret this result as normal/abnormal. Lab Interpretation (test code = 95606-2) [facility] [id number] 17:24:34 * Test Item Value Reference Range Interpretation Comme nts TSH (test code = 2614520117) 1.07 See_Comment [Automated messa ge] The system which generated this result transmitted reference range: 0.45 - 4.70 mIU/L. The reference range was not used to interpret this result as normal/abnormal. Lab Interpretation (test code = 09788-9) [facility] [id number] 17:24:34 * Test Item Value Reference Range Interpretation Comme nts TSH (test code = 5865425360) 1.07 See_Comment [Automated messa ge] The system which generated this result transmitted reference range: 0.45 - 4.70 mIU/L. The reference range was not used to interpret this result as normal/abnormal. Lab Interpretation (test code = 55815-8) Normal [facility] [id number] 17:24:34 * Test Item Value Reference Range Interpretation Comme nts TSH (test code = 7793184656) 1.07 See_Comment [Automated messa ge] The system which generated this result transmitted reference range: 0.45 - 4.70 mIU/L. The reference range was not used to interpret this result as normal/abnormal. Lab Interpretation (test code = 41528-5) Normal [facility] [id number] 17:24:34 * Test Item Value Reference Range Interpretation Comme nts TSH (test code = 4373190582) 1.07 See_Comment [Automated messa ge] The system which generated this result transmitted reference range: 0.45 - 4.70 mIU/L. The reference range was not used to interpret this result as normal/abnormal. Lab Interpretation (test code = 29032-4) Normal [facility] [id number] 17:24:34 * Test Item Value Reference Range Interpretation Comme nts TSH (test code = 0611840564) 1.07 See_Comment [Automated messa ge] The system which generated this result transmitted reference range: 0.45 - 4.70 mIU/L. The reference range was not used to interpret this result as normal/abnormal. Lab Interpretation (test code = 92673-5) Normal [facility] [id number] 17:24:34 * Test Item Value Reference Range Interpretation Comme nts TSH (test code = 7954855291) 1.07 See_Comment [Automated messa ge] The system which generated this result transmitted reference range: 0.45 - 4.70 mIU/L. The reference range was not used to interpret this result as normal/abnormal. Lab Interpretation (test code = 46526-4) [facility] [id number] 17:24:34 * Test Item Value Reference Range Interpretation Comme nts TSH (test code = 3808536842) 1.07 See_Comment [Automated messa ge] The system which generated this result transmitted reference range: 0.45 - 4.70 mIU/L. The reference range was not used to interpret this result as normal/abnormal. Lab Interpretation (test code = 12474-5) [facility] [id number] 17:24:34 * Test Item Value Reference Range Interpretation Comme nts TSH (test code = 8020605604) 1.07 See_Comment [Automated messa ge] The system which generated this result transmitted reference range: 0.45 - 4.70 mIU/L. The reference range was not used to interpret this result as normal/abnormal. Lab Interpretation (test code = 78746-5) [facility] [id number] 17:24:34 * Test Item Value Reference Range Interpretation Comme nts TSH (test code = 8234666256) 1.07 See_Comment [Automated messa ge] The system which generated this result transmitted reference range: 0.45 - 4.70 mIU/L. The reference range was not used to interpret this result as normal/abnormal. Lab Interpretation (test code = 09678-5) [facility] [id number] 17:24:34 * Test Item Value Reference Range Interpretation Comme nts TSH (test code = 1472354423) 1.07 See_Comment [Automated messa ge] The system which generated this result transmitted reference range: 0.45 - 4.70 mIU/L. The reference range was not used to interpret this result as normal/abnormal. Lab Interpretation (test code = 26327-8) [facility] [id number] 17:24:34 * Test Item Value Reference Range Interpretation Comme nts TSH (test code = 4497606264) 1.07 See_Comment [Automated messa ge] The system which generated this result transmitted reference range: 0.45 - 4.70 mIU/L. The reference range was not used to interpret this result as normal/abnormal. Lab Interpretation (test code = 46547-1) [facility] [id number] 17:24:34 * Test Item Value Reference Range Interpretation Comme nts TSH (test code = 5202296692) 1.07 See_Comment [Automated messa Trulioo] The system which generated this result transmitted reference range: 0.45 - 4.70 mIU/L. The reference range was not used to interpret this result as normal/abnormal. Lab Interpretation (test code = 11163-8) [facility] ([id number])2022-10-05 16:54:48* Test Item Value Reference Range Interpretation Comme nts NA (test code = 1173893655) 140 mmol/L 135-145 K (test code = 1874544469) 4.6 mmol/L 3.5-5.0 CL (test code = 3468312559) 106 mmol/L 98-108 CO2 TOTAL (test code = 7065108556) 28 mmol/L 23-31 AGAP (test code = 9643873319) 6 2-16 BUN (test code = 3934852611) 5 mg/dL 7-23 L GLUCOSE (test code = 2589890240) 90 mg/dL 70-110 CREATININE (test code = 8602389055) 0.54 mg/dL 0.50-1.04 TOTAL BILI (test code = 7686644212) 0.1 mg/dL 0.1-1.1 CALCIUM (test code = 8379847471) 9.6 mg/dL 8.6-10.6 T PROTEIN (test code = 9309254789) 6.2 g/dL 6.3-8.2 L ALBUMIN (test code = 2971938728) 4.0 g/dL 3.5-5.0 ALK PHOS (test code = 9494614961) 125 U/L 34-122 H ALTv (test code = 1742-6) 29 U/L 5-35 AST(SGOT) (test code = 2223914696) 24 U/L 13-40 eGFR (test code = 1192178405) 122.1 mL/min/1.73m2 ZAINAB (test code = ZAINAB) [...] imaging tests). Lab Interpretation (test code = 73351-5) [facility] (00785)(TOTAL CHOLESTEROL, TRIGLYCERIDES, HDL)2022-10-05 16:54:48* Test Item Value Reference Range Interpretation Comme nts CHOL (test code = 0567089998) 183 mg/dL 120-200 HDL (test code = 3224582321) 40 mg/dL >=50 L HDLC RATIO (test code = 1275436845) 4.6 <=4.5 H TRIG (test code = 2286993239) 128 mg/dL 30-170 LDL CHOL (test code = 86812-0) 117 mg/dL <=160 VLDL (test code = 4962788396) 26 mg/dL 5-60 Lab Interpretation (test cod e = 75675-4) [facility] (37674)2022-10-05 16:54:48* Test Item Value Reference Range Interpretation Comme nts NA (test code = 6805701571) 140 mmol/L 135-145 K (test code = 2164358037) 4.6 mmol/L 3.5-5.0 CL (test code = 2738986580) 106 mmol/L 98-108 CO2 TOTAL (test code = 6330283142) 28 mmol/L 23-31 AGAP (test code = 5423693061) 6 2-16 BUN (test code = 3641109445) 5 mg/dL 7-23 L GLUCOSE (test code = 3420713451) 90 mg/dL 70-110 CREATININE (test code = 7473971157) 0.54 mg/dL 0.50-1.04 TOTAL BILI (test code = 6864253266) 0.1 mg/dL 0.1-1.1 CALCIUM (test code = 5218012266) 9.6 mg/dL 8.6-10.6 T PROTEIN (test code = 2014558882) 6.2 g/dL 6.3-8.2 L ALBUMIN (test code = 6398116021) 4.0 g/dL 3.5-5.0 ALK PHOS (test code = 8202015624) 125 U/L 34-122 H ALTv (test code = 1742-6) 29 U/L 5-35 AST(SGOT) (test code = 5440814897) 24 U/L 13-40 eGFR (test code = 0775962662) 122.1 mL/min/1.73m2 ZAINAB (test code = ZAINAB) [...] imaging tests). Lab Interpretation (test code = 85616-0) [facility] (95576)(TOTAL CHOLESTEROL, TRIGLYCERIDES, HDL)2022-10-05 16:54:48* Test Item Value Reference Range Interpretation Comme nts CHOL (test code = 3466893223) 183 mg/dL 120-200 HDL (test code = 2986341645) 40 mg/dL >=50 L HDLC RATIO (test code = 2773489832) 4.6 <=4.5 H TRIG (test code = 3092187459) 128 mg/dL 30-170 LDL CHOL (test code = 20514-5) 117 mg/dL <=160 VLDL (test code = 6607341099) 26 mg/dL 5-60 Lab Interpretation (test cod e = 66671-2) [facility] (37261)2022-10-05 16:54:48* Test Item Value Reference Range Interpretation Comme nts NA (test code = 7218020198) 140 mmol/L 135-145 K (test code = 3444621236) 4.6 mmol/L 3.5-5.0 CL (test code = 3438237097) 106 mmol/L 98-108 CO2 TOTAL (test code = 5695928100) 28 mmol/L 23-31 AGAP (test code = 2151169589) 6 2-16 BUN (test code = 5696729277) 5 mg/dL 7-23 L GLUCOSE (test code = 2187169237) 90 mg/dL 70-110 CREATININE (test code = 6648251068) 0.54 mg/dL 0.50-1.04 TOTAL BILI (test code = 5669032365) 0.1 mg/dL 0.1-1.1 CALCIUM (test code = 5725550204) 9.6 mg/dL 8.6-10.6 T PROTEIN (test code = 0476710846) 6.2 g/dL 6.3-8.2 L ALBUMIN (test code = 6254819401) 4.0 g/dL 3.5-5.0 ALK PHOS (test code = 5065575421) 125 U/L 34-122 H ALTv (test code = 1742-6) 29 U/L 5-35 AST(SGOT) (test code = 5673402358) 24 U/L 13-40 eGFR (test code = 2939303928) 122.1 mL/min/1.73m2 ZAINAB (test code = ZAINAB) [...] imaging tests). Lab Interpretation (test code = 59414-4) [facility]TOTAL CHOLESTEROL, TRIGLYCERIDES, HDL)2022-10-05 16:54:48* Test Item Value Reference Range Interpretation Comme nts CHOL (test code = 4656809647) 183 mg/dL 120-200 HDL (test code = 2263203147) 40 mg/dL >=50 L HDLC RATIO (test code = 6616124338) 4.6 <=4.5 H TRIG (test code = 4736064937) 128 mg/dL 30-170 LDL CHOL (test code = 67921-0) 117 mg/dL <=160 VLDL (test code = 7553683408) 26 mg/dL 5-60 Lab Interpretation (test cod e = 43635-9) [facility] (76922)(TOTAL CHOLESTEROL, TRIGLYCERIDES, HDL)2022-10-05 16:54:48* Test Item Value Reference Range Interpretation Comme nts CHOL (test code = 3308816855) 183 mg/dL 120-200 HDL (test code = 5517374140) 40 mg/dL >=50 L HDLC RATIO (test code = 2809810296) 4.6 <=4.5 H TRIG (test code = 1620767013) 128 mg/dL 30-170 LDL CHOL (test code = 32599-6) 117 mg/dL <=160 VLDL (test code = 2806675557) 26 mg/dL 5-60 Lab Interpretation (test cod e = 30706-0) [facility] (85044)(TOTAL CHOLESTEROL, TRIGLYCERIDES, HDL)2022-10-05 16:54:48* Test Item Value Reference Range Interpretation Comme nts CHOL (test code = 7371506365) 183 mg/dL 120-200 HDL (test code = 1034671338) 40 mg/dL >=50 L HDLC RATIO (test code = 9319529206) 4.6 <=4.5 H TRIG (test code = 0263113304) 128 mg/dL 30-170 LDL CHOL (test code = 55901-8) 117 mg/dL <=160 VLDL (test code = 8920365544) 26 mg/dL 5-60 Lab Interpretation (test cod e = 97641-9) [facility] (41876)(TOTAL CHOLESTEROL, TRIGLYCERIDES, HDL)2022-10-05 16:54:48* Test Item Value Reference Range Interpretation Comme nts CHOL (test code = 8289659535) 183 mg/dL 120-200 HDL (test code = 3084980265) 40 mg/dL >=50 L HDLC RATIO (test code = 3949904993) 4.6 <=4.5 H TRIG (test code = 1872875376) 128 mg/dL 30-170 LDL CHOL (test code = 96690-8) 117 mg/dL <=160 VLDL (test code = 8355796760) 26 mg/dL 5-60 Lab Interpretation (test cod e = 12342-2) [id number]TOTAL CHOLESTEROL, TRIGLYCERIDES, HDL)2022-10-05 16:54:48* Test Item Value Reference Range Interpretation Comme nts CHOL (test code = 5093070185) 183 mg/dL 120-200 HDL (test code = 3673804913) 40 mg/dL >=50 L HDLC RATIO (test code = 2014353107) 4.6 <=4.5 H TRIG (test code = 9044981766) 128 mg/dL 30-170 LDL CHOL (test code = 43348-4) 117 mg/dL <=160 VLDL (test code = 2353105678) 26 mg/dL 5-60 Lab Interpretation (test cod e = 18156-0) [facility]59082)(TOTAL CHOLESTEROL, TRIGLYCERIDES, HDL)2022-10-05 16:54:48* Test Item Value Reference Range Interpretation Comme nts CHOL (test code = 2462592121) 183 mg/dL 120-200 HDL (test code = 6466864078) 40 mg/dL >=50 L HDLC RATIO (test code = 8179398625) 4.6 <=4.5 H TRIG (test code = 2831540042) 128 mg/dL 30-170 LDL CHOL (test code = 72514-7) 117 mg/dL <=160 VLDL (test code = 7312174757) 26 mg/dL 5-60 Lab Interpretation (test cod e = 05839-4) [facility]39120)(TOTAL CHOLESTEROL, TRIGLYCERIDES, HDL)2022-10-05 16:54:48* Test Item Value Reference Range Interpretation Comme nts CHOL (test code = 0254251464) 183 mg/dL 120-200 HDL (test code = 4120601258) 40 mg/dL >=50 L HDLC RATIO (test code = 2438558163) 4.6 <=4.5 H TRIG (test code = 0143816883) 128 mg/dL 30-170 LDL CHOL (test code = 87962-4) 117 mg/dL <=160 VLDL (test code = 3212297801) 26 mg/dL 5-60 Lab Interpretation (test cod e = 11130-5) [facility]normal [facility] (39815)(TOTAL CHOLESTEROL, TRIGLYCERIDES, HDL)2022-10-05 16:54:48* Test Item Value Reference Range Interpretation Comme nts CHOL (test code = 8948772858) 183 mg/dL 120-200 HDL (test code = 0527988918) 40 mg/dL >=50 L HDLC RATIO (test code = 2583400193) 4.6 <=4.5 H TRIG (test code = 5491619075) 128 mg/dL 30-170 LDL CHOL (test code = 25991-3) 117 mg/dL <=160 VLDL (test code = 3973729403) 26 mg/dL 5-60 Lab Interpretation (test cod e = 44254-6) [facility]86235)(TOTAL CHOLESTEROL, TRIGLYCERIDES, HDL)2022-10-05 16:54:48* Test Item Value Reference Range Interpretation Comme nts CHOL (test code = 9390641188) 183 mg/dL 120-200 HDL (test code = 3913623441) 40 mg/dL >=50 L HDLC RATIO (test code = 1654290635) 4.6 <=4.5 H TRIG (test code = 0137244798) 128 mg/dL 30-170 LDL CHOL (test code = 51029-7) 117 mg/dL <=160 VLDL (test code = 3767943019) 26 mg/dL 5-60 Lab Interpretation (test cod e = 37790-8) [facility]normal [facility] (78942)(TOTAL CHOLESTEROL, TRIGLYCERIDES, HDL)2022-10-05 16:54:48* Test Item Value Reference Range Interpretation Comme nts CHOL (test code = 8784942929) 183 mg/dL 120-200 HDL (test code = 5183850993) 40 mg/dL >=50 L HDLC RATIO (test code = 1652754173) 4.6 <=4.5 H TRIG (test code = 0627293850) 128 mg/dL 30-170 LDL CHOL (test code = 28388-0) 117 mg/dL <=160 VLDL (test code = 8737864149) 26 mg/dL 5-60 Lab Interpretation (test cod e = 26375-9) [facility] (72553)(TOTAL CHOLESTEROL, TRIGLYCERIDES, HDL)2022-10-05 16:54:48* Test Item Value Reference Range Interpretation Comme nts CHOL (test code = 6363410820) 183 mg/dL 120-200 HDL (test code = 2609795639) 40 mg/dL >=50 L HDLC RATIO (test code = 6509440107) 4.6 <=4.5 H TRIG (test code = 7955648420) 128 mg/dL 30-170 LDL CHOL (test code = 89418-1) 117 mg/dL <=160 VLDL (test code = 9678322279) 26 mg/dL 5-60 Lab Interpretation (test cod e = 66583-7) [facility] (12631)(TOTAL CHOLESTEROL, TRIGLYCERIDES, HDL)2022-10-05 16:54:48* Test Item Value Reference Range Interpretation Comme nts CHOL (test code = 5985236175) 183 mg/dL 120-200 HDL (test code = 4661843052) 40 mg/dL >=50 L HDLC RATIO (test code = 8790250596) 4.6 <=4.5 H TRIG (test code = 2888692928) 128 mg/dL 30-170 LDL CHOL (test code = 89443-3) 117 mg/dL <=160 VLDL (test code = 9906899907) 26 mg/dL 5-60 Lab Interpretation (test cod e = 86397-3) [facility]normal [facility] (A1C)2022-10-05 15:51:11* Test Item Value Reference Range Interpretation Comme nts HGB A1C (test code = 4548-4) 5.1 % 4.0-5.7 ZAINAB (test code = ZAINAB) Reference RangesNormal: <5.7%Prediabetes: 5.7 - 6.4%Diabetes: > 6.5% Lab Interpretation (test code = 27624-2) Normal [facility]A1C)2022-10-05 15:51:11* Test Item Value Reference Range Interpretation Comme nts HGB A1C (test code = 4548-4) 5.1 % 4.0-5.7 ZAINAB (test code = ZAINAB) Reference RangesNormal: <5.7%Prediabetes: 5.7 - 6.4%Diabetes: > 6.5% Lab Interpretation (test code = 43519-1) Normal [facility]A1C)2022-10-05 15:51:11* Test Item Value Reference Range Interpretation Comme nts HGB A1C (test code = 4548-4) 5.1 % 4.0-5.7 ZAINAB (test code = ZAINAB) Reference RangesNormal: <5.7%Prediabetes: 5.7 - 6.4%Diabetes: > 6.5% Lab Interpretation (test code = 57691-6) [facility] 15:51:11* Test Item Value Reference Range Interpretation Comme nts HGB A1C (test code = 4548-4) 5.1 % 4.0-5.7 ZAINAB (test code = ZAINAB) Reference RangesNormal: <5.7%Prediabetes: 5.7 - 6.4%Diabetes: > 6.5% Lab Interpretation (test code = 65706-5) [facility]05 15:51:11* Test Item Value Reference Range Interpretation Comme nts HGB A1C (test code = 4548-4) 5.1 % 4.0-5.7 ZAINAB (test code = ZAINAB) Reference RangesNormal: <5.7%Prediabetes: 5.7 - 6.4%Diabetes: > 6.5% Lab Interpretation (test code = 84333-3) [facility]05 15:51:11* Test Item Value Reference Range Interpretation Comme nts HGB A1C (test code = 4548-4) 5.1 % 4.0-5.7 ZAINAB (test code = ZAINAB) Reference RangesNormal: <5.7%Prediabetes: 5.7 - 6.4%Diabetes: > 6.5% Lab Interpretation (test code = 66971-6) [facility]-05 15:51:11* Test Item Value Reference Range Interpretation Comme nts HGB A1C (test code = 4548-4) 5.1 % 4.0-5.7 ZAINAB (test code = ZAINAB) Reference RangesNormal: <5.7%Prediabetes: 5.7 - 6.4%Diabetes: > 6.5% Lab Interpretation (test code = 20261-7) [facility]-05 15:51:11* Test Item Value Reference Range Interpretation Comme nts HGB A1C (test code = 4548-4) 5.1 % 4.0-5.7 ZAINAB (test code = ZAINAB) Reference RangesNormal: <5.7%Prediabetes: 5.7 - 6.4%Diabetes: > 6.5% Lab Interpretation (test code = 12573-4) [facility]-05 15:51:11* Test Item Value Reference Range Interpretation Comme nts HGB A1C (test code = 4548-4) 5.1 % 4.0-5.7 ZAINAB (test code = ZAINAB) Reference RangesNormal: <5.7%Prediabetes: 5.7 - 6.4%Diabetes: > 6.5% Lab Interpretation (test code = 84825-8) [facility]-05 15:51:11* Test Item Value Reference Range Interpretation Comme nts HGB A1C (test code = 4548-4) 5.1 % 4.0-5.7 ZAINAB (test code = ZIANAB) Reference RangesNormal: <5.7%Prediabetes: 5.7 - 6.4%Diabetes: > 6.5% Lab Interpretation (test code = 82862-0) [facility]-05 15:51:11* Test Item Value Reference Range Interpretation Comme nts HGB A1C (test code = 4548-4) 5.1 % 4.0-5.7 ZAINAB (test code = ZAINAB) Reference RangesNormal: <5.7%Prediabetes: 5.7 - 6.4%Diabetes: > 6.5% Lab Interpretation (test code = 12909-4) [facility]-05 15:51:11* Test Item Value Reference Range Interpretation Comme nts HGB A1C (test code = 4548-4) 5.1 % 4.0-5.7 ZAINAB (test code = ZAINAB) Reference RangesNormal: <5.7%Prediabetes: 5.7 - 6.4%Diabetes: > 6.5% Lab Interpretation (test code = 44105-6) [facility]-05 15:51:11* Test Item Value Reference Range Interpretation Comme nts HGB A1C (test code = 4548-4) 5.1 % 4.0-5.7 ZAINAB (test code = ZAINAB) Reference RangesNormal: <5.7%Prediabetes: 5.7 - 6.4%Diabetes: > 6.5% Lab Interpretation (test code = 32647-5) [facility]-05 15:51:11* Test Item Value Reference Range Interpretation Comme nts HGB A1C (test code = 4548-4) 5.1 % 4.0-5.7 ZAINAB (test code = ZAINAB) Reference RangesNormal: <5.7%Prediabetes: 5.7 - 6.4%Diabetes: > 6.5% Lab Interpretation (test code = 24895-2) [facility] [id number] 15:20:32* Test Item Value Reference Range Interpretation [...] g/dL 31.6-35.1 L RDW-SD (test code = 93636-0) 47.8 fL 39.0-49.9 RDW-CV (test code = 788-0) 18.0 % 12.0-15.5 H PLT (test code = 777-3) 296 See_Comment [Automated messa ge] The system which generated this result transmitted reference range: 166 - 358 10*3/?L. The reference range was not used to interpret this result as normal/abnormal. MPV (test code = 49385-2) 10.7 fL 9.5-12.9 NRBC/100 WBC (test code = 9820356874) 0.0 See_Comment [Automated me ssage] The system which generated this result transmitted reference range: 0.0 - 10.0 /100 WBCs. The reference range was not used to interpret this result as normal/abnormal. NRBC x10^3 (test code = 9582712566) See_Comment [Automated messa ge] The system which generated this result transmitted reference range: 10*3/?L. The reference range was not used to interpret this result as normal/abnormal. GRAN MAT (NEUT) % (test code = 770-8) 70.0 % IMM GRAN % (test code = 9901879155) 0.40 % LYMPH % (test code = 736-9) 18.7 % MONO % (test code = 5905-5) 5.7 % EOS % (test code = 713-8) 4.5 % BASO % (test code = 706-2) 0.7 % GRAN MAT x10^3(ANC) (test code = 5417095913) 4.66 10*3/uL 1.88-7.09 IMM GRAN x10^3 (test code = 2718093266) 0.03 10*3/uL 0.00-0.06 LYMPH x10^3 (test code = 731-0) 1.25 10*3/uL 1.32-3.29 L MONO x10^3 (test code = 742-7) 0.38 10*3/uL 0.33-0.92 EOS x10^3 (test code = 711-2) 0.30 10*3/uL 0.03-0.39 BASO x10^3 (test code = 704-7) 0.05 10*3/uL 0.01-0.07 Lab Interpretation (test code = 19242-0) Abnormal [facility] WITH [id number] 15:20:32* Test Item Value Reference Range Interpretation [...] g/dL 31.6-35.1 L RDW-SD (test code = 18368-9) 47.8 fL 39.0-49.9 RDW-CV (test code = 788-0) 18.0 % 12.0-15.5 H PLT (test code = 777-3) 296 See_Comment [Automated messa ge] The system which generated this result transmitted reference range: 166 - 358 10*3/?L. The reference range was not used to interpret this result as normal/abnormal. MPV (test code = 20027-9) 10.7 fL 9.5-12.9 NRBC/100 WBC (test code = 3965422149) 0.0 See_Comment [Automated me ssage] The system which generated this result transmitted reference range: 0.0 - 10.0 /100 WBCs. The reference range was not used to interpret this result as normal/abnormal. NRBC x10^3 (test code = 9532499194) See_Comment [Automated messa ge] The system which generated this result transmitted reference range: 10*3/?L. The reference range was not used to interpret this result as normal/abnormal. GRAN MAT (NEUT) % (test code = 770-8) 70.0 % IMM GRAN % (test code = 1488294640) 0.40 % LYMPH % (test code = 736-9) 18.7 % MONO % (test code = 5905-5) 5.7 % EOS % (test code = 713-8) 4.5 % BASO % (test code = 706-2) 0.7 % GRAN MAT x10^3(ANC) (test code = 0225133858) 4.66 10*3/uL 1.88-7.09 IMM GRAN x10^3 (test code = 2690603625) 0.03 10*3/uL 0.00-0.06 LYMPH x10^3 (test code = 731-0) 1.25 10*3/uL 1.32-3.29 L MONO x10^3 (test code = 742-7) 0.38 10*3/uL 0.33-0.92 EOS x10^3 (test code = 711-2) 0.30 10*3/uL 0.03-0.39 BASO x10^3 (test code = 704-7) 0.05 10*3/uL 0.01-0.07 Lab Interpretation (test code = 64401-8) Abnormal [facility] WITH [id number] 15:20:32* Test Item Value Reference Range Interpretation Comme nts WBC (test code = 6690-2) 6.67 See_Comment [Automated messa ge] The system which generated this result transmitted reference range: 4.30 - 11.10 10*3/?L. The reference range was not used to interpret this result as normal/abnormal. RBC (test code = 789-8) 4.04 See_Comment [Automated Sympoza ge] The system which generated this result [...] g/dL 31.6-35.1 L RDW-SD (test code = 92336-8) 47.8 fL 39.0-49.9 RDW-CV (test code = 788-0) 18.0 % 12.0-15.5 H PLT (test code = 777-3) 296 See_Comment [Automated Sympoza Trulioo] The system which generated this result transmitted reference range: 166 - 358 10*3/?L. The reference range was not used to interpret this result as normal/abnormal. MPV (test code = 03387-3) 10.7 fL 9.5-12.9 NRBC/100 WBC (test code = 3004298561) 0.0 See_Comment [Automated Kranem ssage] The system which generated this result transmitted reference range: 0.0 - 10.0 /100 WBCs. The reference range was not used to interpret this result as normal/abnormal. NRBC x10^3 (test code = 3504140222) See_Comment [Automated Sympoza ge] The system which generated this result transmitted reference range: 10*3/?L. The reference range was not used to interpret this result as normal/abnormal. GRAN MAT (NEUT) % (test code = 770-8) 70.0 % IMM GRAN % (test code = 3728490723) 0.40 % LYMPH % (test code = 736-9) 18.7 % MONO % (test code = 5905-5) 5.7 % EOS % (test code = 713-8) 4.5 % BASO % (test code = 706-2) 0.7 % GRAN MAT x10^3(ANC) (test code = 0559780801) 4.66 10*3/uL 1.88-7.09 IMM GRAN x10^3 (test code = 0603086785) 0.03 10*3/uL 0.00-0.06 LYMPH x10^3 (test code = 731-0) 1.25 10*3/uL 1.32-3.29 L MONO x10^3 (test code = 742-7) 0.38 10*3/uL 0.33-0.92 EOS x10^3 (test code = 711-2) 0.30 10*3/uL 0.03-0.39 BASO x10^3 (test code = 704-7) 0.05 10*3/uL 0.01-0.07 Lab Interpretation (test code = 98264-0) Abnormal [facility]2023-06-14 17:27:33* Test Item Value Reference Range Interpretation Comme nts Laurium (test code = 4269535566) 0.3 mmol/L 0.6-1.2 L ZAINAB (test code = ZAINAB) Toxic Range: ? Greater than 1.2 mmol/L Lab Interpretation (test code = 79959-1) Abnormal [facility]2023-06-14 17:27:33* Test Item Value Reference Range Interpretation Comme nts Laurium (test code = 7157419808) 0.3 mmol/L 0.6-1.2 L ZAINAB (test code = ZAINAB) Toxic Range: ? Greater than 1.2 mmol/L Lab Interpretation (test code = 42198-7) Abnormal [facility]2023-06-14 17:27:33* Test Item Value Reference Range Interpretation Comme nts Laurium (test code = 5553270766) 0.3 mmol/L 0.6-1.2 L ZAINAB (test code = ZAINAB) Toxic Range: ? Greater than 1.2 mmol/L Lab Interpretation (test code = 44314-1) Abnormal [facility]2023-06-14 17:27:33* Test Item Value Reference Range Interpretation Comme nts Laurium (test code = 1966002666) 0.3 mmol/L 0.6-1.2 L ZAINAB (test code = ZAINAB) Toxic Range: ? Greater than 1.2 mmol/L Lab Interpretation (test code = 98751-2) Abnormal [facility]2023-06-14 17:27:33* Test Item Value Reference Range Interpretation Comme nts Laurium (test code = 9692003926) 0.3 mmol/L 0.6-1.2 L ZAINAB (test code = ZAINAB) Toxic Range: ? Greater than 1.2 mmol/L Lab Interpretation (test code = 47507-7) Abnormal [facility]2023-06-14 17:27:33* Test Item Value Reference Range Interpretation Comme nts Laurium (test code = 0888829498) 0.3 mmol/L 0.6-1.2 L ZAINAB (test code = ZAINAB) Toxic Range: ? Greater than 1.2 mmol/L Lab Interpretation (test code = 32829-7) Abnormal [facility]2023-06-14 17:27:33* Test Item Value Reference Range Interpretation Comme nts Laurium (test code = 5378024399) 0.3 mmol/L 0.6-1.2 L ZAINAB (test code = ZAINAB) Toxic Range: ? Greater than 1.2 mmol/L Lab Interpretation (test code = 27524-0) Abnormal [place] [id number] 17:27:33* Test Item Value Reference Range Interpretation Comme nts Laurium (test code = 6061703268) 0.3 mmol/L 0.6-1.2 L ZAINAB (test code = ZAINAB) Toxic Range: ? Greater than 1.2 mmol/L Lab Interpretation (test code = 38690-7) Abnormal [facility]2023-06-14 17:27:33* Test Item Value Reference Range Interpretation Comme nts Laurium (test code = 0236408088) 0.3 mmol/L 0.6-1.2 L ZAINAB (test code = ZAINAB) Toxic Range: ? Greater than 1.2 mmol/L Lab Interpretation (test code = 33356-6) Abnormal [facility]2023-06-14 17:27:33* Test Item Value Reference Range Interpretation Comme nts Laurium (test code = 3346325116) 0.3 mmol/L 0.6-1.2 L ZAINAB (test code = ZAINAB) Toxic Range: ? Greater than 1.2 mmol/L Lab Interpretation (test code = 73786-9) Abnormal [facility]2023-06-14 17:27:33* Test Item Value Reference Range Interpretation Comme nts Laurium (test code = 7402992092) 0.3 mmol/L 0.6-1.2 L ZAINAB (test code = ZAINAB) Toxic Range: ? Greater than 1.2 mmol/L Lab Interpretation (test code = 26384-2) Abnormal [facility]2023-06-14 17:27:33* Test Item Value Reference Range Interpretation Comme nts Laurium (test code = 9491568534) 0.3 mmol/L 0.6-1.2 L ZAINAB (test code = ZAINAB) Toxic Range: ? Greater than 1.2 mmol/L Lab Interpretation (test code = 68313-0) Abnormal [facility] W/AUTO DIFF WITH [id number] 06:12:05* Test Item Value Reference Range Interpretation [...] 0.00-0.10 ABS NUCLEATED RBCS (test code = 35109) 0.00 K/UL 0.00-0.11 RETICULOCYTE WITH [id number] 06:12:05* Test Item Value Reference Range Interpretation Comme nts RETICULOCYTE COUNT (test code = 1018) 2.50 % 0.80-2.40 H ABSOLUTE RETICULOCYTE (test code = 83000) 103.3 K/UL 32.0-105.0 [facility] has important pathology staff changes effective 04/12/2022. New pathology staff will provide uninterrupted, excellent patient care and clinical consultation. See URL: [email or web address]. UNLESS OTHERWISE INDICATED, ALL TESTING PERFORMED AT [facility] [address] [place] [id number] [place] REGULATOR: CHARLA HERNANDEZ M.D. CLIA NUMBER [id number] [place]. [id number] CBC W/AUTO [id number] 00:00:00* Test Item Value Reference Range Interpretation [...] ABS NUCLEATED RBCS (test cod e = 62896) 0.00 K/UL Robert Ambrose ChrisRETICULOCYTE WITH [id number] 00:00:00* Test Item Value Reference Range Interpretation Comme nts RETICULOCYTE COUNT (test cod e = 1018) 2.50 % ABSOLUTE RETICULOCYTE (test code = 36082) 103.3 K/UL Robert Ambrose ChrisCBC W/AUTO [id number] 00:00:00* Test Item Value Reference Range Interpretation [...] ABS NUCLEATED RBCS (test cod e = 64743) 0.00 K/UL Robert CaliRETICULOCYTE WITH [id number] 00:00:00* Test Item Value Reference Range Interpretation Comme nts RETICULOCYTE COUNT (test cod e = 1018) 2.50 % ABSOLUTE RETICULOCYTE (test code = 01422) 103.3 K/UL Robert CaliCBC W/AUTO [id number] 00:00:00* Test Item Value Reference Range Interpretation [...] ABS NUCLEATED RBCS (test cod e = 47703) 0.00 K/UL Robert CaliRETICULOCYTE WITH [id number] 00:00:00* Test Item Value Reference Range Interpretation Comme nts RETICULOCYTE COUNT (test cod e = 1018) 2.50 % ABSOLUTE RETICULOCYTE (test code = 62120) 103.3 K/UL Robert Ambrose ChrisCBC W/AUTO [id number] 00:00:00* Test Item Value Reference Range Interpretation [...] ABS NUCLEATED RBCS (test cod e = 40117) 0.00 K/UL Robert Ambrose AustinRETICULOCYTE WITH [id number] 00:00:00* Test Item Value Reference Range Interpretation Comme nts RETICULOCYTE COUNT (test cod e = 1018) 2.50 % ABSOLUTE RETICULOCYTE (test code = 60523) 103.3 K/UL Robert CaliCBC W/AUTO [id number] 00:00:00* Test Item Value Reference Range Interpretation [...] ABS NUCLEATED RBCS (test cod e = 39251) 0.00 K/UL Robert CaliRETICULOCYTE WITH [id number] 00:00:00* Test Item Value Reference Range Interpretation Comme nts RETICULOCYTE COUNT (test cod e = 1018) 2.50 % ABSOLUTE RETICULOCYTE (test code = 47615) 103.3 K/UL Robert Ambrose AustinCBC W/AUTO [id number] 00:00:00* Test Item Value Reference Range Interpretation [...] ABS NUCLEATED RBCS (test cod e = 29063) 0.00 K/UL Robert CaliRETICULOCYTE WITH [id number] 00:00:00* Test Item Value Reference Range Interpretation Comme nts RETICULOCYTE COUNT (test cod e = 1018) 2.50 % ABSOLUTE RETICULOCYTE (test code = 64537) 103.3 K/UL Robert Ambrose AustinCBC W/AUTO [id number] 00:00:00* Test Item Value Reference Range Interpretation [...] ABS NUCLEATED RBCS (test cod e = 41730) 0.00 K/UL Robert CaliRETICULOCYTE WITH [id number] 00:00:00* Test Item Value Reference Range Interpretation Comme nts RETICULOCYTE COUNT (test cod e = 1018) 2.50 % ABSOLUTE RETICULOCYTE (test code = 68100) 103.3 K/UL Robert Bailon NON-REFLEX TO [id number] 05:55:49* Test Item Value Reference Range Interpretation Comme nts ANTI-NUCLEAR ANTIBODIES (test code = 3506) NEGATIVE NEGATIVE METHODOLOGY IS I NDIRECT IMMUNOFLUORESCENT ASSAY (IFA) WITH HUMAN EPITHELIAL (HEP-2) CELL LINE SUBSTRATE. YAZMIN NON-REFLEX TO [id number] 00:00:00* Test Item Value Reference Range Interpretation Comme nts ANTI-NUCLEAR ANTIBODIES (aram t code = 3506) NEGATIVE Robert Bailon NON-REFLEX TO [id number] 00:00:00* Test Item Value Reference Range Interpretation Comme nts ANTI-NUCLEAR ANTIBODIES (aram t code = 3506) NEGATIVE Robert CaliANA NON-REFLEX TO [id number] 00:00:00* Test Item Value Reference Range Interpretation Comme nts ANTI-NUCLEAR ANTIBODIES (aram t code = 3506) NEGATIVE Robert Bailon NON-REFLEX TO [id number] 00:00:00* Test Item Value Reference Range Interpretation Comme nts ANTI-NUCLEAR ANTIBODIES (aram t code = 3506) NEGATIVE Robert Ambrose AustinANA NON-REFLEX TO [id number] 00:00:00* Test Item Value Reference Range Interpretation Comme nts ANTI-NUCLEAR ANTIBODIES (aram t code = 3506) NEGATIVE Robert CaliANA NON-REFLEX TO [id number] 00:00:00* Test Item Value Reference Range Interpretation Comme nts ANTI-NUCLEAR ANTIBODIES (aram t code = 3506) NEGATIVE Robert Bailon NON-REFLEX TO [id number] 00:00:00* Test Item Value Reference Range Interpretation Comme nts ANTI-NUCLEAR ANTIBODIES (aram t code = 3506) NEGATIVE Robert Rooney, [id number] 12:42:51* Test Item Value Reference Range Interpretation [...] . . . NG/ML >1504 TSH, THIRD [id number] 11:05:54* Test Item Value Reference Range Interpretation Comme nts TSH, THIRD GENERATION (test code = 2821) 1.310 UIU/ML 0.400-4.100 VITAMIN [id number] 11:05:54* Test Item Value Reference Range Interpretation Comme nts VITAMIN B-12 (test code = 2840) 436 PG/ML 200-950 VITAMIN D, 25 [id number] 11:03:45* Test Item Value Reference Range Interpretation [...] . . . . . NG/ML 30-100 [facility] has important pathology staff changes effective 04/12/2022. New pathology staff will provide uninterrupted, excellent patient care and clinical consultation. See URL: [email or web address]. UNLESS OTHERWISE INDICATED, ALL TESTING PERFORMED AT [facility] [address] [place] [address] PIANO REGULATOR: CHARLA HERNANDEZ M.D. IA NUMBER [id number] [facility] [place]. [id number] URIC [id number] 05:28:57* Test Item Value Reference Range Interpretation Comme [facility] URIC ACID (test code = 2233) 6.7 MG/DL 2.7-6.1 H COMPREHENSIVE METABOLIC [id number] 05:28:57* Test Item Value Reference Range Interpretation Comme nts GLUCOSE (test code = 2217) 103 MG/DL 70-99 H BUN (test code = 2208) 9 MG/DL 6-20 CREATININE (test code = 2214) 0.72 MG/DL 0.60-1.30 eGFR (2020 CKD-EPI) (test code = 25694) 106 ML/MIN/1.73 >60 CALC BUN/CREAT (test code = 2235) 13 RATIO 6-28 SODIUM (test code = 2231) 139 MEQ/L 133-146 POTASSIUM (test code = 2228) 4.5 MEQ/L 3.5-5.4 CHLORIDE (test code = 5) 104 MEQ/L 95-107 CARBON DIOXIDE (test code = 6) 24 MEQ/L 19-31 CALCIUM (test code = 2208) 9.5 MG/DL 8.5-10.5 PROTEIN, TOTAL (test code = 2228) 6.5 G/DL 6.1-8.3 ALBUMIN (test code = 1) 4.4 G/DL 3.5-5.2 CALC GLOBULIN (test code = 0) 2.1 G/DL 1.9-3.7 CALC A/G RATIO (test [...] code = 2218) 26 U/L 5-40 LIPID [id number] 05:28:57* Test Item Value Reference Range Interpretation [...] SPECIMENS. FOR MOREINFORMATION, SEE CLIENT ANNOUNCEMENT AT [email or web address] RISK RATIO LDL/HDL (test code = 2238) 3.04 RATIO <3.22 HEMOGLOBIN [id number] 02:54:46* Test Item Value Reference Range Interpretation Comme nts HEMOGLOBIN A1c (test code = 31964) 5.6 % 4.2-5.6 CBC W/AUTO DIFF WITH [id number] 01:58:18* Test Item Value Reference Range Interpretation [...] 0.00-0.10 ABS NUCLEATED RBCS (test code = 55010) 0.00 K/UL 0.00-0.11 VITAMIN [id number] 00:00:00* Test Item Value Reference Range Interpretation Comme nts VITAMIN B-12 (test code = 2840) 436 PG/ML Robert CaliFOLATE, [id number] 00:00:00* Test Item Value Reference Range Interpretation Comme rigoberto HEMATOCRIT (test code = 1004) 28.7 % FOLATE, RBC (test code = 2690) 1185 NG/ML Robert CaliURIC [id number] 00:00:00* Test Item Value Reference Range Interpretation Comme rigoberto URIC ACID (test code = 2233) 6.7 MG/DL Robert CaliVITAMIN D, 25 [id number] 00:00:00* Test Item Value Reference Range Interpretation Comme rigoberto VITAMIN D, 25 OH (test code = 4958) 13 NG/ML Robert CaliCOMPREHENSIVE METABOLIC [id number] 00:00:00* Test Item Value Reference Range Interpretation Comme rigoberto GLUCOSE (test code = 2217) 103 MG/DL BUN (test code = 2208) 9 MG/DL CREATININE (test code = 2214) 0.72 MG/DL eGFR (2020 CKD-EPI) (test code = 31575) 106 ML/MIN/1.73 CALC BUN/CREAT (test code = [...] code = 2219) 26 U/L Robert CaliLIPID [id number] 00:00:00* Test Item Value Reference Range Interpretation Comme nts CHOLESTEROL (test code = 2210) 207 MG/DL TRIGLYCERIDES (test code = 2232) 130 MG/DL HDL CHOLESTEROL (test code = 2220) 45 MG/DL CALC LDL CHOL (test code = 2237) 137 MG/DL RISK RATIO LDL/HDL (test cod e = 2238) 3.04 RATIO Robert CaliHEMOGLOBIN [id number] 00:00:00* Test Item Value Reference Range Interpretation Comme nts HEMOGLOBIN A1c (test code = 44468) 5.6 % Robert CaliCBC W/AUTO [id number] 00:00:00* Test Item Value Reference Range Interpretation [...] ABS NUCLEATED RBCS (test cod e = 02781) 0.00 K/UL Robert Fuller, THIRD [id number] 00:00:00* Test Item Value Reference Range Interpretation Comme nts TSH, THIRD GENERATION (test code = 2821) 1.310 UIU/ML Robert aCliVITAMIN [id number] 00:00:00* Test Item Value Reference Range Interpretation Comme rigoberto VITAMIN B-12 (test code = 2840) 436 PG/ML Robert CaliFOLATE, [id number] 00:00:00* Test Item Value Reference Range Interpretation Comme rigoberto HEMATOCRIT (test code = 1004) 28.7 % FOLATE, RBC (test code = 2690) 1185 NG/ML Robert CaliURIC [id number] 00:00:00* Test Item Value Reference Range Interpretation Comme nts URIC ACID (test code = 2233) 6.7 MG/DL Robert CaliVITAMIN D, 25 [id number] 00:00:00* Test Item Value Reference Range Interpretation Comme rigboerto VITAMIN D, 25 OH (test code = 4958) 13 NG/ML Robert CaliCOMPREHENSIVE METABOLIC [id number] 00:00:00* Test Item Value Reference Range Interpretation Comme nts GLUCOSE (test code = 2217) 103 MG/DL BUN (test code = 2208) 9 MG/DL CREATININE (test code = 2214) 0.72 MG/DL eGFR (2020 CKD-EPI) (test code = 44382) 106 ML/MIN/1.73 CALC BUN/CREAT (test code = [...] code = 2219) 26 U/L Robert CaliLIPID [id number] 00:00:00* Test Item Value Reference Range Interpretation Comme nts CHOLESTEROL (test code = 2210) 207 MG/DL TRIGLYCERIDES (test code = 2232) 130 MG/DL HDL CHOLESTEROL (test code = 2220) 45 MG/DL CALC LDL CHOL (test code = 2237) 137 MG/DL RISK RATIO LDL/HDL (test cod e = 2238) 3.04 RATIO Robert CaliHEMOGLOBIN [id number] 00:00:00* Test Item Value Reference Range Interpretation Comme nts HEMOGLOBIN A1c (test code = 32685) 5.6 % Robert CaliCBC W/AUTO [id number] 00:00:00* Test Item Value Reference Range Interpretation [...] ABS NUCLEATED RBCS (test cod e = 12953) 0.00 K/UL Robert FullerGaetano, THIRD [id number] 00:00:00* Test Item Value Reference Range Interpretation Comme nts TSH, THIRD GENERATION (test code = 2821) 1.310 UIU/ML Robert CaliVITAMIN [id number] 00:00:00* Test Item Value Reference Range Interpretation Comme nts VITAMIN B-12 (test code = 2840) 436 PG/ML Robert CaliFOLATE, [id number] 00:00:00* Test Item Value Reference Range Interpretation Comme nts HEMATOCRIT (test code = 1004) 28.7 % FOLATE, RBC (test code = 2690) 1185 NG/ML Robert CaliURIC [id number] 00:00:00* Test Item Value Reference Range Interpretation Comme nts URIC ACID (test code = 2233) 6.7 MG/DL Robert CaliVITAMIN D, 25 [id number] 00:00:00* Test Item Value Reference Range Interpretation Comme nts VITAMIN D, 25 OH (test code = 4958) 13 NG/ML Robert CaliCOMPREHENSIVE METABOLIC [id number] 00:00:00* Test Item Value Reference Range Interpretation Comme nts GLUCOSE (test code = 2217) 103 MG/DL BUN (test code = 2208) 9 MG/DL CREATININE (test code = 2214) 0.72 MG/DL eGFR (2020 CKD-EPI) (test code = 00052) 106 ML/MIN/1.73 CALC BUN/CREAT (test code = [...] code = 2219) 26 U/L Robert CaliLIPID [id number] 00:00:00* Test Item Value Reference Range Interpretation Comme nts CHOLESTEROL (test code = 2210) 207 MG/DL TRIGLYCERIDES (test code = 2232) 130 MG/DL HDL CHOLESTEROL (test code = 2220) 45 MG/DL CALC LDL CHOL (test code = 2237) 137 MG/DL RISK RATIO LDL/HDL (test cod e = 2238) 3.04 RATIO Robert CaliHEMOGLOBIN [id number] 00:00:00* Test Item Value Reference Range Interpretation Comme nts HEMOGLOBIN A1c (test code = 90490) 5.6 % Robert CaliCBC W/AUTO [id number] 00:00:00* Test Item Value Reference Range Interpretation [...] ABS NUCLEATED RBCS (test cod e = 04517) 0.00 K/UL Robert CaliTSH, THIRD [id number] 00:00:00* Test Item Value Reference Range Interpretation Comme nts TSH, THIRD GENERATION (test code = 2821) 1.310 UIU/ML Robert CaliVITAMIN [id number] 00:00:00* Test Item Value Reference Range Interpretation Comme rigoberto VITAMIN B-12 (test code = 2840) 436 PG/ML Robert CaliFOLATE, [id number] 00:00:00* Test Item Value Reference Range Interpretation Comme rigoberto HEMATOCRIT (test code = 1004) 28.7 % FOLATE, RBC (test code = 2690) 1185 NG/ML Robert CaliURIC [id number] 00:00:00* Test Item Value Reference Range Interpretation Comme rigoberto URIC ACID (test code = 2233) 6.7 MG/DL Robert CaliVITAMIN D, 25 [id number] 00:00:00* Test Item Value Reference Range Interpretation Comme rigoberto VITAMIN D, 25 OH (test code = 4958) 13 NG/ML Robert CaliCOMPREHENSIVE METABOLIC [id number] 00:00:00* Test Item Value Reference Range Interpretation Comme rigoberto GLUCOSE (test code = 2217) 103 MG/DL BUN (test code = 2208) 9 MG/DL CREATININE (test code = 2214) 0.72 MG/DL eGFR (2020 CKD-EPI) (test code = 46328) 106 ML/MIN/1.73 CALC BUN/CREAT (test code = [...] code = 2219) 26 U/L Robert CaliLIPID [id number] 00:00:00* Test Item Value Reference Range Interpretation Comme nts CHOLESTEROL (test code = 2210) 207 MG/DL TRIGLYCERIDES (test code = 2232) 130 MG/DL HDL CHOLESTEROL (test code = 2220) 45 MG/DL CALC LDL CHOL (test code = 2237) 137 MG/DL RISK RATIO LDL/HDL (test cod e = 2238) 3.04 RATIO Robert CaliHEMOGLOBIN [id number] 00:00:00* Test Item Value Reference Range Interpretation Comme nts HEMOGLOBIN A1c (test code = 74770) 5.6 % Robert CaliCBC W/AUTO [id number] 00:00:00* Test Item Value Reference Range Interpretation [...] ABS NUCLEATED RBCS (test cod e = 65135) 0.00 K/UL [facility] [id number] 00:00:00* Test Item Value Reference Range Interpretation Comme nts TSH, THIRD GENERATION (test code = 2821) 1.310 UIU/ML Robert CaliVITAMIN [id number] 00:00:00* Test Item Value Reference Range Interpretation Comme nts VITAMIN B-12 (test code = 2840) 436 PG/ML Robert CaliFOLATE, [id number] 00:00:00* Test Item Value Reference Range Interpretation Comme nts HEMATOCRIT (test code = 1004) 28.7 % FOLATE, RBC (test code = 2690) 1185 NG/ML Robert CaliURIC [id number] 00:00:00* Test Item Value Reference Range Interpretation Comme rigoberto URIC ACID (test code = 2233) 6.7 MG/DL Robert CaliVITAMIN D, 25 [id number] 00:00:00* Test Item Value Reference Range Interpretation Comme rigoberto VITAMIN D, 25 OH (test code = 4958) 13 NG/ML Robert CaliCOMPREHENSIVE METABOLIC [id number] 00:00:00* Test Item Value Reference Range Interpretation Comme nts GLUCOSE (test code = 2217) 103 MG/DL BUN (test code = 2208) 9 MG/DL CREATININE (test code = 2214) 0.72 MG/DL eGFR (2020 CKD-EPI) (test code = 95406) 106 ML/MIN/1.73 CALC BUN/CREAT (test code = [...] code = 2219) 26 U/L Robert CaliLIPID [id number] 00:00:00* Test Item Value Reference Range Interpretation Comme nts CHOLESTEROL (test code = 2210) 207 MG/DL TRIGLYCERIDES (test code = 2232) 130 MG/DL HDL CHOLESTEROL (test code = 2220) 45 MG/DL CALC LDL CHOL (test code = 2237) 137 MG/DL RISK RATIO LDL/HDL (test cod e = 2238) 3.04 RATIO Robert CaliHEMOGLOBIN [id number] 00:00:00* Test Item Value Reference Range Interpretation Comme nts HEMOGLOBIN A1c (test code = 21836) 5.6 % Robert CaliCBC W/AUTO [id number] 00:00:00* Test Item Value Reference Range Interpretation [...] ABS NUCLEATED RBCS (test cod e = 85778) 0.00 K/UL Robert CaliJAVON, THIRD [id number] 00:00:00* Test Item Value Reference Range Interpretation Comme rigoberto TSH, THIRD GENERATION (test code = 2821) 1.310 UIU/ML Robert CaliVITAMIN [id number] 00:00:00* Test Item Value Reference Range Interpretation Comme rigoberto VITAMIN B-12 (test code = 2840) 436 PG/ML Robert CaliFOLATE, [id number] 00:00:00* Test Item Value Reference Range Interpretation Comme rigoberto HEMATOCRIT (test code = 1004) 28.7 % FOLATE, RBC (test code = 2690) 1185 NG/ML Robert CaliURIC [id number] 00:00:00* Test Item Value Reference Range Interpretation Comme rigoberto URIC ACID (test code = 2233) 6.7 MG/DL Robert CaliVITAMIN D, 25 [id number] 00:00:00* Test Item Value Reference Range Interpretation Comme rigoberto VITAMIN D, 25 OH (test code = 4958) 13 NG/ML Robert CaliCOMPREHENSIVE METABOLIC [id number] 00:00:00* Test Item Value Reference Range Interpretation Comme rigoberto GLUCOSE (test code = 2217) 103 MG/DL BUN (test code = 2208) 9 MG/DL CREATININE (test code = 2214) 0.72 MG/DL eGFR (2020 CKD-EPI) (test code = 15224) 106 ML/MIN/1.73 CALC BUN/CREAT (test code = [...] code = 2219) 26 U/L Robert CaliLIPID [id number] 00:00:00* Test Item Value Reference Range Interpretation Comme nts CHOLESTEROL (test code = 2210) 207 MG/DL TRIGLYCERIDES (test code = 2232) 130 MG/DL HDL CHOLESTEROL (test code = 2220) 45 MG/DL CALC LDL CHOL (test code = 2237) 137 MG/DL RISK RATIO LDL/HDL (test cod e = 2238) 3.04 RATIO Robert CaliHEMOGLOBIN [id number] 00:00:00* Test Item Value Reference Range Interpretation Comme nts HEMOGLOBIN A1c (test code = 95668) 5.6 % Robert CaliCBC W/AUTO [id number] 00:00:00* Test Item Value Reference Range Interpretation [...] ABS NUCLEATED RBCS (test cod e = 13062) 0.00 K/UL Robert FullerH, THIRD [id number] 00:00:00* Test Item Value Reference Range Interpretation Comme rigoberto TSH, THIRD GENERATION (test code = 2821) 1.310 UIU/ML Robert CaliVITAMIN [id number] 00:00:00* Test Item Value Reference Range Interpretation Comme rigoberto VITAMIN B-12 (test code = 2840) 436 PG/ML Robert CaliFOLATE, [id number] 00:00:00* Test Item Value Reference Range Interpretation Comme rigoberto HEMATOCRIT (test code = 1004) 28.7 % FOLATE, RBC (test code = 2690) 1185 NG/ML Robert CaliURIC [id number] 00:00:00* Test Item Value Reference Range Interpretation Comme rigoberto URIC ACID (test code = 2233) 6.7 MG/DL Robert CaliVITAMIN D, 25 [id number] 00:00:00* Test Item Value Reference Range Interpretation Comme rigoberto VITAMIN D, 25 OH (test code = 4958) 13 NG/ML Robert CaliCOMPREHENSIVE METABOLIC [id number] 00:00:00* Test Item Value Reference Range Interpretation Comme rigoberto GLUCOSE (test code = 2217) 103 MG/DL BUN (test code = 2208) 9 MG/DL CREATININE (test code = 2214) 0.72 MG/DL eGFR (2020 CKD-EPI) (test code = 49481) 106 ML/MIN/1.73 CALC BUN/CREAT (test code = [...] code = 2219) 26 U/L Robert CaliLIPID [id number] 00:00:00* Test Item Value Reference Range Interpretation Comme nts CHOLESTEROL (test code = 2210) 207 MG/DL TRIGLYCERIDES (test code = 2232) 130 MG/DL HDL CHOLESTEROL (test code = 2220) 45 MG/DL CALC LDL CHOL (test code = 2237) 137 MG/DL RISK RATIO LDL/HDL (test cod e = 2238) 3.04 RATIO Robert CaliHEMOGLOBIN [id number] 00:00:00* Test Item Value Reference Range Interpretation Comme nts HEMOGLOBIN A1c (test code = 75443) 5.6 % Robert CaliCBC W/AUTO [id number] 00:00:00* Test Item Value Reference Range Interpretation [...] ABS NUCLEATED RBCS (test cod e = 38881) 0.00 K/UL Robert FullerH, THIRD [id number] 00:00:00* Test Item Value Reference Range Interpretation Comme nts TSH, THIRD GENERATION (test code = 2821) 1.310 UIU/ML Robert [id number] 20:05:22* Test Item Value Reference Range Interpretation Comme nts Laurium (test code = 1463157327) 1.1 mmol/L 0.6-1.2 ZAINAB (test code = ZAINAB) Toxic Range: ? Greater than 1.2 mmol/L Lab Interpretation (test code = 28925-0) [facility]2023-01-04 20:05:22* Test Item Value Reference Range Interpretation Comme nts Laurium (test code = 8439424739) 1.1 mmol/L 0.6-1.2 ZAINAB (test code = ZAINAB) Toxic Range: ? Greater than 1.2 mmol/L Lab Interpretation (test code = 70183-2) [facility]2023-01-04 20:05:22* Test Item Value Reference Range Interpretation Comme nts Laurium (test code = 5093086080) 1.1 mmol/L 0.6-1.2 ZAINAB (test code = ZAINAB) Toxic Range: ? Greater than 1.2 mmol/L Lab Interpretation (test code = 09474-9) [facility]2023-01-04 20:05:22* Test Item Value Reference Range Interpretation Comme nts Laurium (test code = 2608522976) 1.1 mmol/L 0.6-1.2 ZAINAB (test code = ZAINAB) Toxic Range: ? Greater than 1.2 mmol/L Lab Interpretation (test code = 76735-9) [facility]2023-01-04 20:05:22* Test Item Value Reference Range Interpretation Comme nts Laurium (test code = 9738281152) 1.1 mmol/L 0.6-1.2 ZAINAB (test code = ZAINAB) Toxic Range: ? Greater than 1.2 mmol/L Lab Interpretation (test code = 55392-9) [place] 801[address]-01-04 20:05:22* Test Item Value Reference Range Interpretation Comme nts Laurium (test code = 3695647625) 1.1 mmol/L 0.6-1.2 ZAINAB (test code = ZAINAB) Toxic Range: ? Greater than 1.2 mmol/L Lab Interpretation (test code = 13837-1) [facility]2023-01-04 20:05:22* Test Item Value Reference Range Interpretation Comme nts Laurium (test code = 6763441483) 1.1 mmol/L 0.6-1.2 ZAINAB (test code = ZAINAB) Toxic Range: ? Greater than 1.2 mmol/L Lab Interpretation (test code = 32257-6) [facility]2023-01-04 20:05:22* Test Item Value Reference Range Interpretation Comme nts Laurium (test code = 0202820254) 1.1 mmol/L 0.6-1.2 ZAINAB (test code = ZAINAB) Toxic Range: ? Greater than 1.2 mmol/L Lab Interpretation (test code = 51680-7) [facility]2023-01-04 20:05:22* Test Item Value Reference Range Interpretation Comme nts Laurium (test code = 3731849192) 1.1 mmol/L 0.6-1.2 ZAINAB (test code = ZAINAB) Toxic Range: ? Greater than 1.2 mmol/L Lab Interpretation (test code = 35737-7) [facility]2023-01-04 20:05:22* Test Item Value Reference Range Interpretation Comme nts Laurium (test code = 1745286995) 1.1 mmol/L 0.6-1.2 ZAINAB (test code = ZAINAB) Toxic Range: ? Greater than 1.2 mmol/L Lab Interpretation (test code = 02312-6) [facility] [id number] 00:00:00* Test Item Value Reference Range Interpretation Comme nts VITAMIN D, 25 OH (test code = 4958) 17 NG/ML [facility] [id number] 00:00:00* Test Item Value Reference Range Interpretation [...] ABS NUCLEATED RBCS (test cod e = 56022) 0.00 K/UL Robert CaliHEMOGLOBIN [id number] 00:00:00* Test Item Value Reference Range Interpretation Comme nts HEMOGLOBIN A1c (test code = 10850) 5.5 % Robert CaliLIPID [id number] 00:00:00* Test Item Value Reference Range Interpretation Comme nts CHOLESTEROL (test code = 2210) 181 MG/DL TRIGLYCERIDES (test code = 2232) 81 MG/DL HDL CHOLESTEROL (test code = 2220) 46 MG/DL CALC LDL CHOL (test code = 2237) 117 MG/DL RISK RATIO LDL/HDL (test cod e = 2238) 2.54 RATIO Robert CaliCOMPREHENSIVE METABOLIC [id number] 00:00:00* Test Item Value Reference Range Interpretation Comme nts GLUCOSE (test code = 2217) 102 MG/DL BUN (test code = 220) 10 MG/DL CREATININE (test code = 2214) 0.67 MG/DL eGFR AMER. (test cod e = ) 126 ML/MIN/1.73 eGFR NON- AMER. (test code = 02612) 108 ML/MIN/1.73 CALC BUN/CREAT (test code = 2235) 15 RATIO SODIUM (test code = 2231) 140 MEQ/L POTASSIUM (test code = 2228) 4.7 MEQ/L CHLORIDE (test code = 2215) 106 MEQ/L CARBON DIOXIDE (test code = 2206) 23 MEQ/L CALCIUM (test code = 2209) 9.1 MG/DL PROTEIN, TOTAL (test code = 2228) 6.9 G/DL ALBUMIN (test code = 220) 4.0 G/DL CALC GLOBULIN (test code = 2240) 2.9 G/DL CALC A/G RATIO (test code = 2234) 1.4 RATIO BILIRUBIN, TOTAL (test code = 2206) <0.2 MG/DL ALKALINE PHOSPHATASE (test code = 4) 127 U/L AST (test code = 2218) 18 U/L ALT (test code = 2219) 18 U/L Robert [id number] 00:00:00* Test Item Value Reference Range Interpretation Comme [facility] TSH, THIRD GENERATION (test code = 2821) 1.140 UIU/ML Robert Ambrose ChrisVITAMIN D, 25 [id number] 00:00:00* Test Item Value Reference Range Interpretation Comme [facility] VITAMIN D, 25 OH (test code = 4958) 17 NG/ML Robert Ambrose ChrisCBC W/AUTO [id number] 00:00:00* Test Item Value Reference Range Interpretation [...] ABS NUCLEATED RBCS (test cod e = 72044) 0.00 K/UL Robert CaliHEMOGLOBIN [id number] 00:00:00* Test Item Value Reference Range Interpretation Comme nts HEMOGLOBIN A1c (test code = 50421) 5.5 % Robert CaliLIPID [id number] 00:00:00* Test Item Value Reference Range Interpretation Comme nts CHOLESTEROL (test code = 2210) 181 MG/DL TRIGLYCERIDES (test code = 2232) 81 MG/DL HDL CHOLESTEROL (test code = 2220) 46 MG/DL CALC LDL CHOL (test code = 2237) 117 MG/DL RISK RATIO LDL/HDL (test cod e = 2238) 2.54 RATIO Robert CaliCOMPREHENSIVE METABOLIC [id number] 00:00:00* Test Item Value Reference Range Interpretation Comme nts GLUCOSE (test code = 2217) 102 MG/DL BUN (test code = 2208) 10 MG/DL CREATININE (test code = 2214) 0.67 MG/DL eGFR AMER. (test cod e = 71263) 126 ML/MIN/1.73 eGFR NON- AMER. (test code = 46888) 108 ML/MIN/1.73 CALC BUN/CREAT (test code = [...] (test code = 2219) 18 U/L Robert [id number] 00:00:00* Test Item Value Reference Range Interpretation Comme [facility] TSH, THIRD GENERATION (test code = 2821) 1.140 UIU/ML Robert CaliVITAMIN D, 25 [id number] 00:00:00* Test Item Value Reference Range Interpretation Comme [facility] VITAMIN D, 25 OH (test code = 4958) 17 NG/ML Robert CaliCBC W/AUTO [id number] 00:00:00* Test Item Value Reference Range Interpretation [...] ABS NUCLEATED RBCS (test cod e = 27218) 0.00 K/UL Robert CaliHEMOGLOBIN [id number] 00:00:00* Test Item Value Reference Range Interpretation Comme nts HEMOGLOBIN A1c (test code = 74762) 5.5 % Robert CaliLIPID [id number] 00:00:00* Test Item Value Reference Range Interpretation Comme nts CHOLESTEROL (test code = 2210) 181 MG/DL TRIGLYCERIDES (test code = 2232) 81 MG/DL HDL CHOLESTEROL (test code = 2220) 46 MG/DL CALC LDL CHOL (test code = 2237) 117 MG/DL RISK RATIO LDL/HDL (test cod e = 2238) 2.54 RATIO Robert CaliCOMPREHENSIVE METABOLIC [id number] 00:00:00* Test Item Value Reference Range Interpretation Comme nts GLUCOSE (test code = 2217) 102 MG/DL BUN (test code = 2208) 10 MG/DL CREATININE (test code = 2214) 0.67 MG/DL eGFR AMER. (test cod e = 71162) 126 ML/MIN/1.73 eGFR NON- AMER. (test code = 00246) 108 ML/MIN/1.73 CALC BUN/CREAT (test code = [...] (test code = 2219) 18 U/L Robert [id number] 00:00:00* Test Item Value Reference Range Interpretation Comme nts TSH, THIRD GENERATION (test code = 2821) 1.140 UIU/ML Robert CaliVITAMIN D, 25 [id number] 00:00:00* Test Item Value Reference Range Interpretation Comme nts VITAMIN D, 25 OH (test code = 4958) 17 NG/ML Robert CaliCBC W/AUTO [id number] 00:00:00* Test Item Value Reference Range Interpretation [...] ABS NUCLEATED RBCS (test cod e = 07698) 0.00 K/UL Robert CaliHEMOGLOBIN [id number] 00:00:00* Test Item Value Reference Range Interpretation Comme rigoberto HEMOGLOBIN A1c (test code = 40342) 5.5 % Robert CaliLIPID [id number] 00:00:00* Test Item Value Reference Range Interpretation Comme nts CHOLESTEROL (test code = 2210) 181 MG/DL TRIGLYCERIDES (test code = 2232) 81 MG/DL HDL CHOLESTEROL (test code = 2220) 46 MG/DL CALC LDL CHOL (test code = 2237) 117 MG/DL RISK RATIO LDL/HDL (test cod e = 2238) 2.54 RATIO Robert CaliCOMPREHENSIVE METABOLIC [id number] 00:00:00* Test Item Value Reference Range Interpretation Comme nts GLUCOSE (test code = 2217) 102 MG/DL BUN (test code = 2208) 10 MG/DL CREATININE (test code = 2214) 0.67 MG/DL eGFR AMER. (test cod e = 13976) 126 ML/MIN/1.73 eGFR NON- AMER. (test code = 44956) 108 ML/MIN/1.73 CALC BUN/CREAT (test code = [...] (test code = 2219) 18 U/L Robert [id number] 00:00:00* Test Item Value Reference Range Interpretation Comme nts TSH, THIRD GENERATION (test code = 2821) 1.140 UIU/ML Robert CaliVITAMIN D, 25 [id number] 00:00:00* Test Item Value Reference Range Interpretation Comme nts VITAMIN D, 25 OH (test code = 4958) 17 NG/ML Robert CaliCBC W/AUTO [id number] 00:00:00* Test Item Value Reference Range Interpretation [...] ABS NUCLEATED RBCS (test cod e = 56947) 0.00 K/UL Robert CaliHEMOGLOBIN [id number] 00:00:00* Test Item Value Reference Range Interpretation Comme nts HEMOGLOBIN A1c (test code = 36805) 5.5 % Robert CaliLIPID [id number] 00:00:00* Test Item Value Reference Range Interpretation Comme nts CHOLESTEROL (test code = 2210) 181 MG/DL TRIGLYCERIDES (test code = 2232) 81 MG/DL HDL CHOLESTEROL (test code = 2220) 46 MG/DL CALC LDL CHOL (test code = 2237) 117 MG/DL RISK RATIO LDL/HDL (test cod e = 2238) 2.54 RATIO Robert CaliCOMPREHENSIVE METABOLIC [id number] 00:00:00* Test Item Value Reference Range Interpretation Comme nts GLUCOSE (test code = 2217) 102 MG/DL BUN (test code = 2208) 10 MG/DL CREATININE (test code = 2214) 0.67 MG/DL eGFR AMER. (test cod e = 28185) 126 ML/MIN/1.73 eGFR NON- AMER. (test code = 16493) 108 ML/MIN/1.73 CALC BUN/CREAT (test code = [...] (test code = 2219) 18 U/L Robert [id number] 00:00:00* Test Item Value Reference Range Interpretation Comme [facility] TSH, THIRD GENERATION (test code = 2821) 1.140 UIU/ML Robert CaliVITAMIN D, 25 [id number] 00:00:00* Test Item Value Reference Range Interpretation Comme [facility] VITAMIN D, 25 OH (test code = 4958) 17 NG/ML Robert CaliCBC W/AUTO [id number] 00:00:00* Test Item Value Reference Range Interpretation [...] ABS NUCLEATED RBCS (test cod e = 70213) 0.00 K/UL Robert CaliHEMOGLOBIN [id number] 00:00:00* Test Item Value Reference Range Interpretation Comme nts HEMOGLOBIN A1c (test code = 33009) 5.5 % Robert CaliLIPID [id number] 00:00:00* Test Item Value Reference Range Interpretation Comme nts CHOLESTEROL (test code = 2210) 181 MG/DL TRIGLYCERIDES (test code = 2232) 81 MG/DL HDL CHOLESTEROL (test code = 2220) 46 MG/DL CALC LDL CHOL (test code = 2237) 117 MG/DL RISK RATIO LDL/HDL (test cod e = 2238) 2.54 RATIO Robert CaliCOMPREHENSIVE METABOLIC [id number] 00:00:00* Test Item Value Reference Range Interpretation Comme nts GLUCOSE (test code = 2217) 102 MG/DL BUN (test code = 2208) 10 MG/DL CREATININE (test code = 2214) 0.67 MG/DL eGFR AMER. (test cod e = 46085) 126 ML/MIN/1.73 eGFR NON- AMER. (test code = 95692) 108 ML/MIN/1.73 CALC BUN/CREAT (test code = [...] (test code = 2219) 18 U/L Robert [id number] 00:00:00* Test Item Value Reference Range Interpretation Comme [facility] TSH, THIRD GENERATION (test code = 2821) 1.140 UIU/ML Robert Ambrose FarmingtonVITAMIN D, 25 [id number] 00:00:00* Test Item Value Reference Range Interpretation Comme [facility] VITAMIN D, 25 OH (test code = 4958) 17 NG/ML Robert CaliCBC W/AUTO [id number] 00:00:00* Test Item Value Reference Range Interpretation [...] ABS NUCLEATED RBCS (test cod e = 96380) 0.00 K/UL Robert CaliHEMOGLOBIN [id number] 00:00:00* Test Item Value Reference Range Interpretation Comme nts HEMOGLOBIN A1c (test code = 16048) 5.5 % Robert CaliLIPID [id number] 00:00:00* Test Item Value Reference Range Interpretation Comme nts CHOLESTEROL (test code = 2210) 181 MG/DL TRIGLYCERIDES (test code = 2232) 81 MG/DL HDL CHOLESTEROL (test code = 2220) 46 MG/DL CALC LDL CHOL (test code = 2237) 117 MG/DL RISK RATIO LDL/HDL (test cod e = 2238) 2.54 RATIO Robert CaliCOMPREHENSIVE METABOLIC [id number] 00:00:00* Test Item Value Reference Range Interpretation Comme nts GLUCOSE (test code = 2217) 102 MG/DL BUN (test code = 2208) 10 MG/DL CREATININE (test code = 2214) 0.67 MG/DL eGFR AMER. (test cod e = 40327) 126 ML/MIN/1.73 eGFR NON- AMER. (test code = 55315) 108 ML/MIN/1.73 CALC BUN/CREAT (test code = [...] (test code = 2219) 18 U/L Robert [id number] 00:00:00* Test Item Value Reference Range Interpretation [...] mg/dL VERY HIGH.........>/= 190 mg/dL Comments to Clinical Research Coordinator: ADD TO AM LABSLIPID PROFILE (CORONARY RISK)2018-07-20 [...] code = LDL) MG/DL 0-99 Comments to Clinical Research Coordinator: ADD TO AM LABSPROTHROMBIN [id number] 06:24:00* Test Item Value Reference Range Interpretation [...] systemic embolism. 3.0 - 4.5 Comments to Clinical Research Coordinator: NURSE WILL BRING SPECIMEN TO LABPTT ACTIVATED 2018-07-20 06:24:00* Test Item Value Reference Range Interpretation Comme nts PTT ACTIVATED (test code = APTT) 29.3 SECONDS 22.0-33.0 N Comments to Clinical Research Coordinator: NURSE WILL BRING SPECIMEN TO LABBASIC METABOLIC [...] CA) 9.6 MG/DL 8.4-10.2 N Comments to Clinical Research Coordinator: NURSE WILL BRING SPECIMEN TO LAB Comments to Clinical Research Coordinator: NURSE WILL BRING SPECIMEN TO [id number] 06:13:00* Test Item Value Reference Range Interpretation Comme nts MAGNESIUM (test code = MAG) 2.2 MG/DL 1.6-2.3 N Comments to Clinical Research Coordinator: NURSE WILL BRING SPECIMEN TO LAB Comments to Clinical Research Coordinator: NURSE WILL BRING SPECIMEN TO LABCBC W/AUTO [id number] 06:02:00 * Test Item Value Reference Range [...] & W/DYE Notes Date/Time Note Provider Source Referral ID Status Reason Start Date Expiration Date Visits Re quested Visits Authorized [id number] 05/23/2024 1 [facility] 10:46[facility]16Pending Results Scheduled Orders Name Type Priority Associated Diagnoses Order Schedule Cardiac catheterization Cardiac Cath Routine Unst able angina (CMS/HCC) (HCC) Once for 1 Occurrences starting 05/23/2024 until 05/23/2024 Monitor access site and extremity distal to puncture wound Wound Ostomy Routine Until discontinu ed until discontinued starting 05/26/2024 Assess cath site pre-sheath removal Wound Ostomy Routine Until discont inued until discontinued starting 05/26/2024 Site Care Wound Ostomy Routine Until discon tinued until discontinued starting 05/26/2024 Health Maintenance Due Date Last Done Comments CT Colonography 1975 Colonoscopy 1975 Colorectal Cancer Screening 1975 FIT-DNA 1975 FIT 1975 FOBT 1975 Sigmoidoscopy 1975 Annual Physical 06/13/1980 DTaP/Tdap/Td Vaccines (1 - Tdap) 06/13/1996 Hepatitis A Vaccines (1 of 2 - Risk 2-dose series) 06/13/1996 Hepatitis B Vaccines (1 of 3 - 19+ 3-dose series) 06/13/1996 Pneumococcal Vaccine: Pediat rics (0 to 5 Years) and At-Risk Patients (6 to 64 Years) (1 of 2 - PCV) 06/13/1996 Pap Smear 06/13/1998 Cervical Cancer Screening 06/14/2007 HPV/Cotest 06/14/2007 Mammogram 06/13/2017 Influenza Vaccine (Season Ended) 2024 Lipid Panel 05/26/2029 05/26/2024 Respiratory Syncytial Virus (RSV) Adult Series (1 - 1-dose 75+ series) 06/13/2052 HIB Vaccines Aged Out No longer eligi ble based on patient's age to complete this topic HPV Vaccines Aged Out No longer eligi ble based on patient's age to complete this topic IPV Vaccines Aged Out No longer eligi ble based on patient's age to complete this topic Meningococcal Vaccine Aged Out No juventino ori eligible based on patient's age to complete this topic Rotavirus Vaccines Aged Out No longer eligible based on patient's age to complete this topic [facility]2155[facility]-09 10:46:16 [facility] CenterLibeknp2010-11-39 10:46:16 Diagnosis Unstable angina (CMS/HCC) (HCC) - Primary Intermediate coronary syndrome [facility] CenterCdcpqhr4876-61-79 10:46:16 [facility] CenterDlsmwgi4056-16-24 10:28:40 Images from the original note were not included. 11297 Procedural Sedation Procedural sedation is medicine to ease discomfort, pain, and anxiety during a procedure. The medicine is often given through an IV (intravenous) line in your arm or hand. In some cases, the medicine may be taken by mouth or inhaled. While you are under sedation, you will likely be awake. But you may not remember it afterward. Why procedural sedation is used Sedation is used for many types of procedures. The goal is to reduce pain, anxiety, and stressful memories of a procedure. It can help your healthcare provider treat you. For example, having a broken bone fixed may be easier if you feel relaxed. This type of sedation is used only for short, basic procedures. It's not used for complex surgery. Some procedures that use this type of sedation include: ? Dental surgery ? Breast biopsy, to take a sample of breast tissue ? Endoscopy, to look at gastrointestinal problems ? Bronchoscopy, to check for lung problems ? Bone or joint realignment, to fix a broken bone or dislocated joint ? Minor foot or skin surgery ? Electrical cardioversion, to restore a normal heart rhythm ? Lumbar puncture, to check for neurological disease Risks of procedural sedation Risks and possible side effects include: ? Headache ? Nausea and vomiting ? Bad memories of the procedure ? Slowed breathing ? Changes in heart rate and blood pressure (rare) ? Inhalation of stomach contents into your lungs (rare) Side effects will likely go away shortly after the procedure. Your healthcare team will watch your heart rate and breathing during and after your sedation. This is to help prevent problems. Your own risks may vary. They can be based on your age and your overall health. They also depend on the type of sedation you are given. Talk with your healthcare provider about the risks that apply most to you. Getting ready for procedural sedation Talk with your provider about how to get ready for your procedure. Tell them about all the medicines you take. This includes ydmr-alr-hzbfxja medicines, such as ibuprofen. It also includes vitamins, herbs, and other supplements. You may need to stop taking some medicines before the procedure, such as blood thinners and aspirin. If you smoke, you should stop. This is to lessen the chance of a lung problem. Talk with your provider if you need help to stop smoking. Tell your provider if you: ? Have had any problems in the past with sedation or anesthesia ? Have had any recent changes in your health, such as an infection or fever ? Are or think you could be Also: ? Follow any directions you are given for not eating or drinking before procedure. ? Ask a trusted adult to take you home after the procedure. You can?t drive on the day you have sedation. ? Ask a trusted adult to stay with you for a few hours while you recover. ? Don't make any important decisions, such as financial or legal, on the day after you have sedation. ? Follow all other instructions from your provider. During your procedural sedation You may have your procedure in a hospital or a clinic. Sedation is done by a trained healthcare provider. In general, you can expect the following: ? You will be given medicine through an IV line in your arm or hand. Or you may get a shot or take it by mouth. Or you may inhale it through a mask. ? If you have medicine through an IV, you may feel the effects very quickly. You will start to feel relaxed and drowsy. ? During the procedure, your heart rate, breathing, and blood pressure will be closely watched. Your breathing and blood pressure may decrease a little. But you will likely not need help with your breathing. You may get a little extra oxygen. This is done through a mask or some soft plastic prongs under your nose. ? You will likely be awake the whole time. If you do fall asleep, you should be easy to wake up, if needed. You should feel little or no pain. ? When your procedure is over, the sedative medicine will be stopped. After your procedural sedation You will start to feel more awake and aware. But you will likely be drowsy for a while afterward. You will be closely watched as you become more alert. You may have a faint memory of the procedure. Or you may not remember it at all. You should be able to go home within 1 to 2 hours after your procedure. Plan to have a trusted adult stay with you for a few hours. This person should make sure your condition is not getting worse. They should also watch for problems, and keep you safe. You may have side effects, such as nausea, fatigue, or unsteadiness for up to 24 hours. You may also feel lightheaded. Tell your healthcare provider if they continue. Don?t drive or operate dangerous machines during the next 24 hours. Also, don't make any important business or personal decisions. And don't drink any alcohol during the next 24 hours. Take extra care when walking and moving, You may be at a higher risk of falling. Follow any instructions you were given for eating and drinking. Be sure to follow all after-care directions. When to call your healthcare provider Have someone call your healthcare provider right away if any of the following occur: ? Drowsiness that gets worse ? Weakness or dizziness that gets worse ? Repeated vomiting ? Your speech is slurred, and others cannot understand you ? Severe or ongoing pain from the procedure, not relieved by the pain medicine (if prescribed) ? Fever of 100.4? F (38?C) or higher, or as advised by your healthcare provider ? New rash Call 911 Have someone call 911 if any of the following occur: ? Trouble breathing ? Trouble swallowing ? Chest pain ? Loss of consciousness or you can't be awakened Last Reviewed Date: 2021 00:00:00 ? 3064-4310 [employer]. All rights reserved. This information is not intended as a substitute for professional medical care. Always follow your healthcare professional's instructions. [facility]2025-04-14 10:26:16 Images from the original note were not included. Angioplasty and Stenting: Understanding the Risks - Video Learn the possible risks of angioplasty and stenting. To view the video go to this web address: [email or web address] Or, scan this QR code with your smart phone ? [facility]2025-02-19 00:00:00 [facility]2025-02-05 00:00:00 [place] [id number] 00:00:00 [place] 834464-12-06 00:00:00 [place] 41094-11-22 00:00:00 [place] 834464-10-29 00:00:00 [place] 41094-10-15 00:00:00 [place] 41094-06-26 15:01:26 Order for Monoferric Infusion was faxed to [facility], fax # fax- [phone]. Fax confirmed as received. I called patient to inform her that order was sent. T Kath Westbrook RNOhioHealth [facility] General HospitalZadogy9540-66-73 12:08:22 I ordered IV iron if you dont mind faxing it. Thank you! [place] 724144-06-20 15:54:54 Yes if you can send over the last infusion order we sent again to [facility]. Otherwise we can do it when in back next week T [facility] HospitalXkjtph9885-89-84 15:40:16 Patient called stating that her GI provider said he would order an Iron infusion for patient one more time, but that she would have to follow-up with hematology from now on for iron infusion orders. Patient would like to have the order placed and the infusion done at [facility] as before. There is no mention of this in BAKARI note. Kath Westbrook [facility] HospitalTqbyhi2483-97-44 12:20:48 I called patient and explained that [...] with Dr. Cordero on 07/26/23. Kath Westbrook [facility] HospitalSnfudb5036-05-86 10:35:15 Pt is requesting orders for an [...] constantly declining. Pt was life flight to [facility] recently due to a stroke. Pls advise. Vega GregoryOhioHealth Marion General HospitalErzbns2112-73-47 02:18:19 Rn went over poc and discharge teaching with pt prior to departure. Iv discontinued and discharge packet went over with pt. Pt verbalizes understanding of education and medications. Pt states that no belogings were left in room. [facility] Pt using ed wheelchair Lizandro Bah [place] 204574-04-26 01:38:45 Patient currently sitting up, drinking water. Patient family to assist patient in changing clothes and then to perform walk test. Patient pending walk test and results at this time. Kiley Darling [place] 204574-04-26 01:29:14 Dr. Pabon at bedside [place] 724144-04-26 00:00:00 Patient currently resting in ED stretcher, accompanied by visitors at this time. Patient awaiting clinical sobriety for d/c. NAD noted, VSS, RR e/u, bed locked in lowest position with side rails elevated x 2. Patient family denies additional needs at this time, will notify staff if needs anything. [place] 724144-04-25 22:44:51 Pt straight cath x2 RN per [...] tx per plan of care Angela Larsen [place] 204574-04-25 22:30:00 Report taken from Armand PATEL. Patient [...] VSS, RR e/u. See neuro focused assessment. [place] 58587-04-25 22:06:00 STROKE ALERT CANCELLED per neuro Paged out @ 2206 [place] 724144-04-25 22:04:19 Neuro resident verbalizes he is canceling the stroke alert. [facility] Puneet Hussein [place] 204574-04-25 22:04:00 Stroke orders cancelled per neurology faculty and Dr. Pabon at this time. [place] 58587-04-25 21:54:[address] Reflexes intact, will not follow commands or speak, however. [place] 724144-04-25 21:40:[address] via stretcher, pt connected to serial VS and cardiac monitoring. Neuro resident in CT In CT, Pt appeared to be selectively following commands and opening eyes. Pt was addressed in both Georgian and Welsh, yet did not answer questions verbally nor with any head shakes/ nods. Pt resp e/u on RA w equal chest rise and fall. Skin warm dry approp tone. When pt opened eyes on command, PERRLA 4mm. Labs drawn. [place] 724144-04-25 21:39:01 Shivani Schuler is a 47 year [...] pain, VSWNL, NAD noted. Pt to CT [place] 724144-04-25 21:35:00 Shivani Schuler is a 47 year old female who presents from home([place]) via [facility] after pt's daughter heard [...] back and forth and squinting eyes shut. 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 The DIRECTOR SOFTWARE QUALITY ASSURANCE are patent bilaterally. No sizable posterior communicating [...] The superior cerebellar arteries are patent. The DIRECTOR SOFTWARE QUALITY ASSURANCE are patent bilaterally. No sizable posterior communicating [...] I 0.003 <=0.034 ng/mL LITHIUM - Normal Laurium 0.6 0.6 - 1.2 mmol/L ETHANOL ALCOHOL [...] (IMMUNOASSAY) - COMPREHENSIVE DRUG SCREEN W/O REFLEX Laurium O2 Nasal Cannula Orders Placed This Encounter Medications NaCl 0.9% (NS) injection 5 mL iopamidol (ISOVUE 370-500 mL) injection 80 mL First Provider Eval: ED Events Date/Time Event User Comments 06/07/232147 Medical Screening Begins PEPPERSIDNEY Garcia DO JUNIOR -- 06/07/232147 First Provider Evaluation PEPPER PATEL SIDNEY JUNIOR -- ED COURSE Diagnosis/Impression as of 06/08/23 [...] 06/08/23 0136 Marysol Pabon DO 06/08/23 0147 [facility] EMERGENCY PHYSICIAN [facility]2024-04-22 10:50:05 I called patient to ascertain what medication she is referring to that was Rxd but not received. No answer, I LVM with my call back number. Kath Westbrook [place] 29731-04-01 11:48:54 Gastroenterolgy appt has been placed. Jessica Pang [place] 204574-03-29 16:55:45 I called patient to follow-up from [...] Dr. Boston for these symptoms. Kath Westbrook [place] 204574-03-27 16:58:43 Pt called about her Iron infusion needed. GI provider requested patient's PCP follow up with this request. At initial visit, patient's GI provider did order Iron Infusion: 11/23/22: Order for MONOFERRIC infusion sent to [facility], fax # [phone]. Fax was confirmed as received. The above [...] medications that can help her. Kath Westbrook [place] 204574-01-26 09:11:36 I called patient to relay her GI provider's msg. Patient understands and asked if I could send last order for iron infusion to show her PCP so it can be done thru their office. Last order was sent to patient's [facility] as per her request. SUPERVISOR Kath Westbrook [place] 204574-01-26 08:51:07 Antony chase I would but I think her PCP should be able to do this and because of previous issues with the order will let them handle it. It should be possible for PCP to do it if they put in a little effort [facility]2024-01-25 16:20:43 I called patient who stated she received a chart msg from Dr. Cordero stating her iron was low and recommended she take infusion. Patient needs another referral for the iron infusion at [facility]. Patient stated her PCP has no clue on how to order infusion. Patient states GI provider did put in the last order that was done at [facility]. 11/23/22: Order for MONOFERRIC infusion sent to [facility], fax # [phone]. Fax was confirmed as received. NEL Westbrook [place] 204574-01-25 15:42:27 Shivani Schuler is a 47 year old female Pt is calling requesting for referral to be placed to [facility] in regards to getting iron infusion done. Please call the pt to discuss. Please advise. [facility] Daxa ScottOhioHealth Marion General HospitalZusgpv3528-71-31 10:30:00 Images from the original note were not included. Venipuncture collection performed by clean technique on the right anticubitus and back of left hand. Total of 2 attempts were made. Slight pressure and a bandage/dressing were applied to the site(s). The patient experienced no complications. The following specimens were processed according to instructions and sent to [facility] laboratories per lab order on 02/15/2023 : LT BLUE SST 1 RED LAV PPT DK GREEN (LiHep) DK GREEN (SodH) SUE DK BLUE (K2) DK BLUE (S) ACD Blood Culture NIPT/NTD [facility]2023-12-01 21:52:03 Dr. Cordero, Please call patient and see how we can help. ED precautions if worsening symptoms. Dominic [facility] IM-GASTROENTEROLOGY [facility]2023-09-07 08:30:00 Images from the original note were not included. Venipuncture collection performed by clean technique on the left anticubitus. Total of 1 attempts were made. Slight pressure and a bandage/dressing were applied to the site(s). The patient experienced no complications. The following specimens were processed according to instructions and sent to [facility] laboratories LT BLUE Lt Green SST 2 RED LAV PPT DK GREEN (L) DK GREEN (S)/// Fibrosure set BLUE,SST & LAV SUE DK BLUE (K2) DK BLUE (S) ACD RST BLOOD CULTURE NIPT or ALLOSURE VERIFYNOW URINE URINE CULTURE APTIMA URINE STOOL Monogram Z plasma preservative tube (call lab for tube)[facility]UP Vasoactive Intestinal Peptide (call lab for tube)[facility]UP Samantha Latham [facility]2023-08-24 10:15:00 Images from the original note were not included. Venipuncture collection performed by clean technique on the left anticubitus. Total of 1 attempts were made. Slight pressure and a bandage/dressing were applied to the site(s). The patient experienced no complications. The following specimens were processed according to instructions and sent to [facility] laboratories per lab order on 10/05/2022: LT BLUE SST 1 RED LAV 2 PPT DK GREEN (LiHep) DK GREEN (SodH) SUE DK BLUE (K2) DK BLUE (S) ACD Blood Culture NIPT/NTD [facility] HospitalJcxsus8106-12-34 06:55:[id number] [place] [address] PATIENT NAME: SHIVANI SCHULER ADMIT DATE: 07/20/18 ACCOUNT NO: [id number] ROOM NO: AGE: 43 REPORT TYPE: CARDIAC CATHETERIZATION REPORT SEX: F ADMITTING PHYSICIAN: ATTENDING PHYSICIAN:Thea Harper MD PROCEDURE DATE: 07/20/2018 CONCRETE PRODUCTS DISPATCHER: Thea Harper MD TITLE OF THE PROCEDURE: [...] femoral artery area for local anesthesia. A 6-Romansh [...] By: Thea Harper MD WT: CATH:ADRIANA/KIAN/RIGOBERTO Conf#: [id number]/DID#: [id number] Authenticated by Thea Harper MD On 07/20/2018 08:15:22 AM at 0815 PATIENT NAME: SHIVANI SCHULER 06:06:[id number] [place] [address] PATIENT NAME: SHIVANI SCHULER ADMIT DATE: 07/20/18 ACCOUNT NO: [id number] ROOM NO: AGE: 43 REPORT TYPE: ELECTROCARDIOGRAM SEX: F ADMITTING PHYSICIAN: ATTENDING PHYSICIAN:Thea Harper MD Order: [id number] Test Reason : CAD Test Date/Time Stamp: [...] HARPER at 0921 PATIENT NAME: SHIVANI SCHULER 18:55:[id number] [place] [address] PATIENT NAME: SHIVANI SCHULER ADMIT DATE: 07/20/18 ACCOUNT NO: [id number] ROOM NO: AGE: 43 REPORT TYPE: HISTORY AND PHYSICAL SEX: F ADMITTING PHYSICIAN: ATTENDING PHYSICIAN:Thea Harper MD ADMISSION DATE: 07/20/2018 CONCRETE PRODUCTS DISPATCHER: Thea Harper MD REASON FOR ADMISSION: Chest [...] By: Thea Harper MD WT: HP:TRAVIS/KIAN/RIGOBERTO Conf#: [id number]/DID#: [id number] Authenticated by Thea Harper MD On 07/25/2018 07:20:46 AM at 0721 PATIENT NAME: SHIVANI SCHULER
[2024-05-27 13:53] LABS: Absolute Basophils 0.1 K/uL (0-0.5); Absolute Eosinophils 0.2 K/uL (0-0.5); Absolute Lymphocytes (CBC) 1.4 K/uL (0.7-4.9); Absolute Monocytes 0.4 K/uL (0.1-1.3); Absolute Neutrophil 3.9 K/uL (1.8-8.0); Eosinophils % 4.2 % (0-4.4); Hematocrit 35.3 % (36.0-45.0); Hemoglobin 12.5 g/dL (12.0-15.0); Lymphocytes % 23.3 % (15.3-44.8); MCH 29.4 pg (27.0-35.0); MCHC 35.5 g/dL (32.0-36.0); MPV 9.6 fL (7.6-11.3); Monocytes % 6.5 % (3.3-12.3); Platelets 177 thou/uL (152-406); RBC Red Blood Cell Count 4.25 M/uL (3.86-4.86); Red Cell Distribution Width 16.2 % (12.1-15.2)
[2024-05-27 14:15] LABS: ALT/SGPT 21 U/L (13-56); Albumin/Globulin Ratio 0.9 (1.1-1.8); Alkaline Phosphatase 114 U/L (45-117); Anion Gap 7.7 mEq/L (5.0-15.0); BUN Blood Urea Nitrogen 9 mg/dL (7-18); Bicarbonate 27 mEq/L (21-32); Bilirubin Total 0.2 mg/dL (0.2-1.0); Globulin 3.2 g/dL (2.3-3.5); Glomerular Filtration Rate 104 ml/min (=/>90); Glucose Level 110 mg/dL (74-106); Magnesium 1.8 mg/dL (1.6-2.4); Potassium 3.7 mEq/L (3.5-5.1); Protein, Total 6.2 g/dL (6.4-8.2); Sodium Level 140 mEq/L (136-145); Troponin High Sensitivity 4.5 pg/mL (<58.9)
[2024-05-27 14:17] LABS: AST/SGOT < 10 U/L (15-37); Bilirubin Direct < 0.2 mg/dL (0-0.2)
--- NOTE | 2024-05-27 14:34 | RAD REPORT ---
EXAMINATION: ONE VIEW CHEST XR CLINICAL INDICATION: CHEST PAIN TECHNIQUE: Frontal chest projection is submitted. Examination is limited by patient positioning and t echnique. COMPARISON: 02/24/2024 FINDINGS: Mild interstitial pulmonary edema. The heart is upper limit of normal in size. No displaced fractures identified. IMPRESSION: Mild CHF is possible.
--- NOTE | 2024-05-27 17:36 | ER ---
Nurse's Notes [facility] Name: Shivani Lagunas Age: 48 yrs Sex: Female : 1975 Arrival Date: 05/27/2024 Time: 13:16 Bed 15 Private MD: Diagnosis: Chest pain, unspecified Presentation: 05/27 13:18 Chief complaint: EMS states: SUBSTERNAL CP SINCE 299, DIAGNOSTIC CATH Y/D. Coronavirus bp screen: At this time, the client does not indicate any symptoms associated with coronavirus-19. Ebola Screen: No symptoms or risks identified at this time. Initial Sepsis Screen: Does the patient meet any 2 criteria? No. Patient's initial sepsis screen is negative. Does the patient have a suspected source of infection? No. Patient's initial sepsis screen is negative. Risk Assessment: Do you want to hurt yourself or someone else? Patient reports no desire to harm self or others. Onset of symptoms was May 27, 2024 at 03:00. Care prior to arrival: Medication(s) given: Tylenol, 325 mg, IV initiated. 20 GA, in the right antecubital area, Glucose check: 118. 13:18 Method Of Arrival: EMS: [facility] bp 13:18 Acuity: ALICIA 3 bp Triage Assessment: 13:29 General: Appears in no apparent distress. obese, Behavior is cooperative, appropriate bp for age, anxious. Pain: Complains of pain in chest. EENT: No deficits noted. Neuro: No deficits noted. Cardiovascular: Reports chest pain. Respiratory: No deficits noted. GI: No signs and/or symptoms were reported involving the gastrointestinal system. : No signs and/or symptoms were reported regarding the genitourinary system. Derm: No deficits noted. Musculoskeletal: No deficits noted. Historical: - Allergies: 13:29 Sulfa (Sulfonamide Antibiotics); bp - PMHx: 13:29 Anemia; Bipolar disorder; Congestive heart failure; Hypertensive disorder; bp Schizophrenia; - PSHx: 13:29 section; Appendectomy; Cholecystectomy; bp - Immunization history:: Adult Immunizations up to date. - Infectious Disease History:: Denies. - Family history:: not pertinent. - Social history:: Smoking status: Patient denies any tobacco usage or history of. Screenin:30 [facility] ED Fall Risk Assessment (Adult) History of falling in the last 3 months, bp including since admission No falls in past 3 months (0 pts) Confusion or Disorientation No (0 pts) Intoxicated or Sedated No (0 pts) Impaired Gait No (0 pts) Mobility Assist Device Used No (0 pt) Altered Elimination No (0 pt) Score/Fall Risk Level 0 - 2 = Low Risk Oriented to surroundings. Abuse screen: Denies threats or abuse. Denies injuries from another. Nutritional screening: No deficits noted. Tuberculosis screening: No symptoms or risk factors identified. Assessment: 13:30 General: Appears in no apparent distress. uncomfortable, obese, Behavior is bp cooperative, appropriate for age, anxious. 15:10 Reassessment: Patient appears in no apparent distress at this time. Patient is alert, bp oriented x 3, equal unlabored respirations, skin warm/dry/pink. 16:18 Reassessment: Patient appears in no apparent distress at this time. Patient is alert, bp oriented x 3, equal unlabored respirations, skin warm/dry/pink. Vital Signs: 13:18 BP 141 / 82; Pulse 58; Resp 16; Temp 98; Pulse Ox 97% ; bp 15:10 BP 139 / 81; Pulse 61; Resp 16; Pulse Ox 100% ; bp 16:18 BP 143 / 72; Pulse 58; Resp 16; Pulse Ox 100% ; bp 17:51 BP 151 / 88; Pulse 58; Resp 16; Pulse Ox 100% ; bp ED Course: 13:17 Patient arrived in ED. bp 13:17 Jose J Rivera MD is Attending Physician. rt 13:29 Triage completed. bp 13:29 Arm band placed on. bp 13:30 Patient has correct armband on for positive identification. Client placed on continuous bp cardiac and pulse oximetry monitoring. NIBP monitoring applied. sustainability manager on. Pulse ox on. NIBP on. 13:30 Maintain EMS IV. Dressing intact. Good blood return noted. Site clean \T\ dry. Gauge \T\ bp site: 20 LAC. Flushed with 10 mL NS. 13:37 Nish Magallon, AMANDA is Primary Nurse. bp 14:13 XRAY Chest (1 view) In Process Unspecified. EDMS 17:52 No provider procedures requiring assistance completed. IV discontinued, intact, bp bleeding controlled, No redness/swelling at site. Pressure dressing applied. Patient maintains SpO2 saturation greater than 95% on room air. Administered Medications: 13:49 Not Given (Patient Refused): nitroglycerin0.4 mg Sublingual once; every five minute if ss needed x3 Medication: 13:30 VIS not applicable for this client. bp Outcome: 17:35 Discharge ordered by . rt 17:52 Discharged to home ambulatory, with family, bp 17:52 Condition: stable 17:52 Discharge instructions given to patient, Instructed on discharge instructions, follow up and referral plans. Demonstrated understanding of instructions, follow-up care, 17:53 Patient left the ED. bp Signatures: Dispatcher [employer] EDMS Nish Magallon RN RN bp Jose J Rivera MD MD rt Yvonne Walker RN ss
--- NOTE | 2024-05-27 17:36 | EDPHYS ---
Physician Documentation [facility] Name: Shivani Lagunas Age: 48 yrs Sex: Female : 1975 Arrival Date: 05/27/2024 Time: 13:16 Bed 15 Private MD: ED Physician Jose J Rivera HPI: 05/27 13:24 This 48 yrs old Female presents to ER via Unassigned with complaints of Chest rt Pain. 13:24 Patient presents to the ED with chest pressure, constant since about 3 AM. The patient rt reportedly had a diagnostic cath done at [facility] yesterday, does not know the results, was scheduled to have an appointment tomorrow to discuss these results. She did receive 324 of aspirin by EMS, 1 nitro with modest relief of her symptoms. Denies other acute complaints at this time, symptoms are moderate severity, no other aggravating or alleviating factors.. Historical: - Allergies: 13:29 Sulfa (Sulfonamide Antibiotics); bp - PMHx: 13:29 Anemia; Bipolar disorder; Congestive heart failure; Hypertensive disorder; bp Schizophrenia; - PSHx: 13:29 section; Appendectomy; Cholecystectomy; bp - Immunization history:: Adult Immunizations up to date. - Infectious Disease History:: Denies. - Family history:: not pertinent. - Social history:: Smoking status: Patient denies any tobacco usage or history of. ROS: 13:24 Constitutional: Negative for fever, chills, and weight loss, Respiratory: Negative for rt shortness of breath, cough, wheezing, and pleuritic chest pain, Abdomen/GI: Negative for abdominal pain, nausea, vomiting, diarrhea, and constipation, MS/Extremity: Negative for injury and deformity, Skin: Negative for injury, rash, and discoloration, Neuro: Negative for headache, weakness, numbness, tingling, and seizure, 13:24 Cardiovascular: Positive for chest pain, Negative for edema, Exam: 13:24 Constitutional: This is a well developed, well nourished patient who is awake, alert, rt and in no acute distress. Head/Face: Normocephalic, atraumatic. Chest/axilla: Normal chest wall appearance and motion. Nontender with no deformity. No lesions are appreciated. Cardiovascular: Regular rate and rhythm with a normal S1 and S2. No gallops, murmurs, or rubs. Normal PMI, no JVD. No pulse deficits. Respiratory: Lungs have equal breath sounds bilaterally, clear to auscultation and percussion. No rales, rhonchi or wheezes noted. No increased work of breathing, no retractions or nasal flaring. Abdomen/GI: Soft, non-tender, with normal bowel sounds. No distension or tympany. No guarding or rebound. No evidence of tenderness throughout. Skin: Warm, dry with normal turgor. Normal color with no rashes, no lesions, and no evidence of cellulitis. MS/ Extremity: Pulses equal, no cyanosis. Neurovascular intact. Full, normal range of motion. Neuro: Awake and alert, GCS 15, oriented to person, place, time, and situation. Cranial nerves II-XII grossly intact. Motor strength 5/5 in all extremities. Sensory grossly intact. Cerebellar exam normal. Normal gait. 14:10 ECG was reviewed by the Attending Physician. rt Vital Signs: 13:18 BP 141 / 82; Pulse 58; Resp 16; Temp 98; Pulse Ox 97% ; bp 15:10 BP 139 / 81; Pulse 61; Resp 16; Pulse Ox 100% ; bp 16:18 BP 143 / 72; Pulse 58; Resp 16; Pulse Ox 100% ; bp 17:51 BP 151 / 88; Pulse 58; Resp 16; Pulse Ox 100% ; bp MDM: 13:19 Medical Screening Exam initiated rt 17:41 Differential diagnosis: ACS, unspecific chest pain, pneumonia. HEART Score: History: rt Moderately Suspicious (1), ECG: Normal (0), Age: > 45 and < 65 years (1), Risk Factors: > or = 3 Risk factors for atherosclerotic disease (2), Troponin: < or = 1 x Normal Limit (0), Total Score = 4. The patient was not given aspirin in the Emergency Department. Patient reports taking aspirin within the past 24 hours. Data reviewed: vital signs, nurses notes. Consideration of Admission/Observation Escalation of care including admission/observation considered. Discussed admission versus outpatient follow-up with the patient. 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 She has 2 negative troponins. Shared decision-making was employed, she will return for worsening symptoms.. I considered the following discharge prescriptions or medication management in the emergency department Medications were administered in the Emergency Department. See MAR. Independent interpretation of the following test(s) in the Emergency Department X-Ray: My interpretation is No pneumonia seen on interpretation of x-ray images. Test considered but Not performed: CT: Low suspicion for pulmonary embolus, CT angiogram not indicated. Care significantly affected by the following chronic conditions: Congestive Heart Failure. Counseling: I had a detailed discussion with the patient and/or guardian regarding the historical points, exam findings, and any diagnostic results supporting the discharge/admit diagnosis, lab results, radiology results, the need for outpatient follow up, to return to the emergency department if symptoms worsen or persist or if there are any questions or concerns that arise at home. Response to treatment: the patient's symptoms have markedly improved after treatment. 05/27 13:24 Order name: Basic Metabolic Panel; Complete Time: 14:19 rt 05/27 13:24 Order name: CBC with Diff; Complete Time: 14:19 rt 05/27 13:24 Order name: LFT's; Complete Time: 14: rt 05/27 13:24 Order name: Magnesium; Complete Time: 14:19 rt 05/27 13:24 Order name: Troponin HS; Complete Time: 14: rt 05/27 16:30 Order name: Troponin High Sensitivity; Complete Time: 17:33 rt 05/27 13:24 Order name: XRAY Chest (1 view); Complete Time: 14:35 rt 05/27 13:24 Order name: EKG; Complete Time: 13:25 rt 05/27 13:24 Order name: Cardiac monitoring; Complete Time: 13:31 rt 05/27 13:24 Order name: EKG - Nurse/Tech; Complete Time: 14:26 rt 05/27 13:24 Order name: IV Saline Lock; Complete Time: 13:37 rt 05/27 13:24 Order name: Labs collected and sent; Complete Time: 13:49 rt 05/27 13:24 Order name: O2 Per Protocol; Complete Time: 13:31 rt 05/27 13:24 Order name: O2 Sat Monitoring; Complete Time: 13:31 rt 05/27 16:30 Order name: Misc. Order: repeat troponin now; Complete Time: 17:06 rt EC:10 Rate is 58 beats/min. Rhythm is regular, Sinus bradycardia with No ectopy. QRS [place] is rt Normal. CO interval is normal. QRS interval is normal. QT interval is normal. No Q waves. T waves are Normal. No ST changes noted. Interpreted by me. Administered Medications: 13:49 Not Given (Patient Refused): nitroglycerin0.4 mg Sublingual once; every five minute if ss needed x3 Disposition Summary: 05/27/24 17:35 Discharge Ordered Notes: Location: Home rt Problem: new rt Symptoms: have improved rt Condition: Stable rt Diagnosis - Chest pain, unspecified rt Followup: rt - With: Private Physician - When: Tomorrow - Reason: Discharge Instructions: - Discharge Summary Sheet rt - Nonspecific Chest Pain, Adult rt Forms: - Medication Reconciliation Form rt - Antibiotic Education rt - Prescription Opioid Use rt - Patient Portal Instructions rt - Leadership Thank You Letter rt Signatures: Dispatcher [employer] Nish Ko, RN RN bp Jose J Rivera MD MD rt Yvonne Wlaker RN ss Corrections: (The following items were deleted from the chart) 16:31 16:31 Troponin High Sensitivity+[id number].[email or web address].BRZ ordered. EDNV EDMS
[2024-05-27 18:10] VITALS: TEMP 98
[2024-05-27 18:12] VITALS: O2SAT 100
[2024-05-27 18:16] VITALS: BP 151/88
== END 2024-05-27 17:53 | disposition home or self-care (01) ==
LOC: ER 13:16
DX: R07.9 Chest pain, unspecified (principal); I10 Essential (primary) hypertension; I50.9 Heart failure, unspecified
CPT/HCPCS: 36415; 71045; 80048; 80076; 83735; 84484; 85025; 93005

== ENCOUNTER → 2024-06-02 | Day surgery (SDC) | payer OTHER ==
--- NOTE | 2024-06-02 11:36 | RAD REPORT ---
EXAMINATION: ULTRASOUND GUIDED VACUUM-ASSISTED LEFT BREAST CORE NEEDLE BIOPSY LEFT breast core needle biopsy; percutaneous, using ultrasound guidance. Image guided placement, metallic localization clip, percutaneous. Post Bx mammogram: LEFT Dx Mammogram. CLINICAL INDICATION:. N63.22 INFORMED CONSENT: The risks, benefits, alternatives, and potential complications of ultrasound guided vacuum-assisted LEFT breast biopsy were discussed with the patient. An informed consent sheet was signed. The risks include but are not limited to the following: bleeding, infection, vascular injury, organ injury, pneumothorax, allergic reaction, and the need for emergent surgery/procedures. BIOPSY TARGET: LEFT breast, inferior approach. NEEDLE: 12 gauge Celero vacuum-assisted core biopsy needle, 3 cores. SEDATION: None. COMPLICATIONS: None. TECHNIQUE: Appropriate audible time out was performed. The skin was prepped and draped in the normal fashion. The soft tissues were anesthetized with lidocaine. Utilizing real-time ultrasound guidance, a vacuum-assisted core biopsy needle was placed into the breast location described below wi th removal of tissue for pathology evaluation. Metallic clip was placed within the biopsied lesion under ultrasound guidance. Compression was held. Hemostasis was achieved. Sterile dressing was applie d. Patient tolerated the procedure well without immediate complication. The technologist was in the room with the radiologist throughout the procedure. IMPRESSION: 1.Successful ultrasound guided vacuum-assisted core biopsy of the LEFT breast as described above. 2. Biopsy clip placed within the biopsied lesion. 3. Note that on the post biopsy mammogram, the clip is located more anterior than the biopsied lesion . Confirmation of the biopsy clip location was performed under ultrasound. The differences in location of the mammographic abnormality and the ultrasound lesion may be because these are separate abnormalities or the biopsy clip migrated. Depending on the results of the biopsy, recommend 6 month follow-up ultrasound.;
== END ==
LOC: DS 08:56
PROVIDERS: ATTEND Surgery
DX: D24.2 Benign neoplasm of left breast (principal)
CPT/HCPCS: 19083; 77065; 88305

== ENCOUNTER 2024-10-08 10:13 | Observation (INO) | payer OTHER, SELFPAY ==
[2024-10-08] MEDS ORDERED: FAMOTIDINE 20 MG/2 ML VIAL IV ONE (10:36)
[2024-10-08] MEDS ORDERED: ASPIRIN 81 MG CHEWABLE TABLET ONE (10:36)
[2024-10-08] MEDS ORDERED: NA CHLORIDE 0.9% 1,000 ML ONE (10:37)
--- OUTSIDE RECORDS SUMMARY | 2024-10-08 10:54 | XMS REPORT | Continuity of Care Document ---
Author Name Unknown Address [address] [facility] [address] [place] [address] [facility] Address [address] [facility] [address] [place] [address] Care Team Providers Care Ply Bander Name Role Phone Tova Hoffman MD Primary Care Physician [phone] Jae Holloway Attending Clinician Unavailable Consuelo BAUER, Elidia Gamble Attending Clinician [phone] 1, Pl Attending Clinician Unavailable Napoleon PATEL, Becky Santos Attending Clinician [phone] EMMANUELLE GUTIERREZ Attending Clinician Unavailable EMMANUELLE GUTIERREZ Attending Clinician Unavailable Bobo BAUER, Ted Santos Attending Clinician Kath Reid MD Attending Clinician Emmanuelle Gutierrez DO Attending Clinician + [phone] LORA CULVER Attending Clinician Ramya Culver MD, Lora Douglas Attending Clinician + [phone] DAVIDSON SUTHERLAND Attending Clinician Unavailable Doctor Unassigned, [place] [facility] Attending Clinician U kannan Dumont MD, Tavon Attending Clinician [phone] ALESHA CROWE Attending Clinician Unavailable Dominic Keita MD Attending Clinician [phone] Jose Westbrook MD Attending Clinician + [phone] JOSE WESTBROOK Attending Clinician Unavailable FARZANA SAUCEDA Attending Clinician Unavailable MARYSOL PABON Attending Clinician Unavailable MARYSOL PABON Attending Clinician Unavailable Marysol Pabon DO Attending Clinician [phone] Rhiannon Hickman MD Attending Clinician + [phone] Dominic Keita MD Attending Clinician +- [phone] Consuelo BAUER, Elidia Gamble Attending Clinician [phone] EMILIA SNOWDEN Attending Clinician Annia vailable Doctor Unassigned, [place] [facility] Attending Clinician U SARA Day Attending Clinician UnavailSARA Dorado Attending Clinician UnavailJewel Forbes MD Attending Clinician [facility] Attending Clinician Unavailable JEWEL CUNHA Attending Clinician Unavaila JENNY Norton Attending Clinician Unavailable JENNY ARRIAGA Attending Clinician Unavailable Dexter Dias MD Attending Clinician [phone] Davidson Sutherland MD Attending Clinician [phone] Pcp-Lab Attending Clinician Unavailable DEXTER DIAS Attending Clinician Unavailable ONEIDA MONTANA Attending Clinician Unavailable DOMINIC KEITA Attending Clinician UnavailHunter Sahni MD Attending Clinician [phone] Ting Grissom MD Attending Clinician [phone] RADIOLOGY Attending Clinician Unavailable DORA NEWMAN Attending Clinician Unavailable Dora Newman NP Attending Clinician [phone] Kath Vences MD Attending Clinician [phone] Pob, Adc Lab Main Attending Clinician UnavailKATH Grady Attending Clinician Unavailchris e Pathology Attending Clinician Unavailable IGOR SAAVEDRA Attending Clinician Unavaila HILARY Ramires Attending Clinician Unavaila EDITH RamiresL T Attending Clinician Unavaila Igor mcconnell Rai, MD Attending Clinician Unava ilable GIGI MONROY Attending Clinician Unavailable Gigi Monroy DO Attending Clinician [phone] Zane Martinez MD Attending Clinician [phone] Deonte Aviles Attending Clinician Unavailable UNKNOWN, ATTENDING Attending Clinician Unavailab SALLY Cash Attending Clinician Unavail able SALLY MITCHELL Attending Clinician Unavail able Salbador Lockwood MD Attending Clinician +-[phone] SALBADOR LOCKWOOD Attending Clinician Unavailable HALIMA CONNOR Attending Clinician Unavailab Halima Choi DO Attending Clinician + [phone] ROBERT NOWAK Attending Clinician Unavail able Patti Hutton Attending Clinician [phone] CRISTO MARTINEZ Attending Clinician Unavail able JEWEL MORAES Attending Clinician Unava ilable KATH DELGADO Attending Clinician Unav ailable ANGELA RAUSCH Attending Clinician Unavailab EMMANUELLE Hedrick Admitting Clinician Unavailable Emmanuelle Gutierrez DO Admitting Clinician [phone] LORA CULVER Admitting Clinician Lora Olivera MD Admitting Clinician + [phone] RHIANNON HICKMAN Admitting Clinician Unavailable DOMINIC KEITA Admitting Clinician UnavailDominic Bello MD Admitting Clinician [phone] Payers Payer Name Policy Type Policy Number Effective Date Expirati on Date Source [employer] [id number] 2024 00:00:00 [facility] [id number] 2023 00:00:00 [employer] [id number] 2022 00:00:00 MEDICAID SSI PENDING PENDING 2021 00:00:00 Problems Condition Name Condition Details Condition Category Status Onset Date Resolution Date Last Treatment Date Treating Clinician Comments Source Obesity (BMI 30-39.9) Obesity (BMI 30-39.9) Disease Active 5- 00:00: 00 [facility] Chest pain Chest pain Disease Active 5 00:00: 00 [facility] Unstable angina (CMS/HCC) Unstable angina (CMS/HCC) Disease Active 4-14 00:00: 00 [facility] Mos[facility] Steatosis of liver Steatosis of Liver Problem Active 04-10 00:00: 00 [facility] Alkaline phosphatas e above reference range Alkaline Phosphatas e above Reference Range Problem Active 2 00:00: 00 [facility] Vitamin D deficiency Vitamin D Deficiency Problem Active 2- 00:00: 00 [facility] Menometror rhagia Menometror rhagia Problem Active 2-20 00:00: 00 [facility] Fatigue Fatigue Problem Active 2-20 00:00: 00 [facility] Dysuria Dysuria Problem Active 2-20 00:00: 00 [facility] Reduced libido Reduced Libido Problem Active 2-20 00:00: 00 [facility] Obese class I Obese Class I Problem Active 2-20 00:00: 00 [facility] Excessive menstruati on with irregular cycle Excessive Menstruati on with Irregular Cycle Problem Active 1-24 00:00: 00 [facility] Stenosis of cervix Stenosis of Cervix Problem Active 1-20 00:00: 00 [facility] Atrial fibrillati on Atrial Fibrillati on Problem Active 2023-02 2- 00:00: 00 [facility] Constipati on Constipati on Problem Active 2023-02 2- 00:00: 00 [...] blood loss Disease Active 10-19 00:00: 00 [facility] Gastroesop hageal reflux disease, unspecifie d whether esophagiti s present Gastroesop hageal reflux disease, unspecifie d whether esophagiti s present Disease Active 10-19 00:00: 00 [facility] Arrhythmia Arrhythmia Disease Active 10-18 00:00: 00 [facility] Anemia Anemia Disease Active 02-17 00:00: 00 [facility] Bipolar 1 disorder, depressed Bipolar 1 disorder, depressed Disease Active 2019-02 00:00: 00 [facility] Gout Gout Disease Active 08-17 00:00: 00 [facility] Severe headache Severe headache Disease Active 1998-02 00:00: 00 [facility] Insomnia disorder Insomnia disorder Disease Active 1989-02 00:00: 00 [facility] Anxiety Anxiety Disease Active 10-18 00:00: 00 [facility] Imaging of brain abnormal Abnormal brain scan Problem [facility] Carpal tunnel syndrome, bilateral upper limbs Carpal tunnel syndrome, bilateral upper limbs Problem [facility] Peripheral neuropathy Peripheral neuropathy Problem [facility] Constipate d Constipate d Problem [facility] Seizure Seizure Problem [facility] Chronic migraine without aura, intractabl e, without status migrainosu s Chronic migraine without aura, intractabl e, without status migrainosu s Problem [facility] Facial tingling sensation Facial tingling sensation Problem [facility] White matter abnormalit y on MRI of brain White matter abnormalit y on MRI of brain Problem [facility] Autonomic dysfunctio n Autonomic dysfunctio n Problem [facility] Elevated intracrani al pressure Elevated intracrani al pressure Problem [facility] Myoclonic jerking Myoclonic jerking Problem [facility] Cervical dystonia Cervical dystonia Problem [facility] No known active problems No known active problems Disease [facility] Allergies, Adverse Reactions, Alerts Allergy Name Allergy Type Status Severity Reaction(s) Onset Date Inactive Date Treating Clinician Comments Source Adhesive Tape Propensi ty to adverse reaction s Active 4-14 00:00: 00 Brayan Hazel Epic Nifedipi ne Propensi ty to adverse reaction s Active 4-14 00:00: 00 Brayan Hazel Epic Sulfa Antibiot ics Propensi ty to adverse reaction s Active 14 00:00: 00 Brayan Hazel Epic Sulfa Drugs (Not Checked) Propensi ty to adverse reaction to drug Active 2023-02 0-15 00:00: 00 Robert Arnol Viraj Sulfa Antibiot ics - CLASS Propensi ty to adverse reaction to drug Active 5-10 00:00: 00 Robert Arnol Viraj Sulfa (Sulfona mide Antibiot ics) Propensi ty to adverse reaction s Active Hives 0 4-24 00:00: 00 [facility] SULFA (SULFONA MIDE ANTIBIOT ICS) Drug Class Active Hives 0 4-24 00:00: 00 [facility] SULFA (SULFONA MIDE ANTIBIOT ICS) Allergy to substanc e Active [facility] Substanc e with sulfonam chelo structur e and antibact erial mechanis m of action (substan ce) Substanc e with sulfonam chelo structur e and antibact erial mechanis m of action (substan ce) Active Unknown [facility] Social History Social Habit Start Date Stop Date Quantity Comments Source Sex Assigned At [facility] History of Tobacco Use [facility] ASSERTION Possible Srinath Mosher Gender identity Rj quita Mosher Sexual orientation [facility] Tobacco use and exposure 2024-06-12 00:00:00 2024-06-12 00:00:00 Smokeless tobacco non-user [facility] Alcoholic beverage intake 2024-05-26 00:00:00 2024-05-26 00:00:00 Lifetime non-drinker (finding) [facility] History of Social function 2024-05-26 00:00:00 2024-05-26 00:00:00 [facility] Exposure to SARS-CoV-2 (event) 2022-02-05 00:00:00 2022-02-15 08:57:00 Not sure [facility] Smoking Status Start Date Stop Date Source Never smoked tobacco [facility] Medications Ordered Medication Name Filled Medication Name Start Date Stop Date Current Medication? Ordering Clinician Indication Dosage Frequency Signature (SIG) Comments Components Source BUSPIRONE 30 mg tablet 07-21 00:00: 00 Yes [id number] TAKE 1 TABLET BY MOUTH EVERY MORNING AND IN EVENING [facility] DULOXETINE 60 mg capsule 07-21 00:00: 00 Yes [id number] TAKE 1 CAPSULE BY MOUTH EVERY MORNING AND IN EVENING [facility] Venofer 200 mg iron/10 mL intravenous solution 07-16 00:00: 00 Yes 10mg iron/10 mL Robert Cali diclofenac sodium 75 mg tablet,mikal yed release 07-14 00:00: 00 Yes 1mg Robert Cali Baclofen 10 MG Baclofen 10 MG 07-02 00:00: 00 No 1{table t_as_ne eded} BID Baclofen 10 MG BUSPIRONE 30 mg tablet 06-25 00:00: 00 07-21 00:00 :00 No [id number] TAKE 1 TABLET BY MOUTH EVERY MORNING AND IN EVENING [facility] DULOXETINE 60 mg capsule 06-25 00:00: 00 07-21 00:00 :00 No [id number] TAKE 1 CAPSULE BY MOUTH EVERY MORNING AND IN EVENING [facility] ALPRAZolam (Xanax) 0.5 MG tablet ALPRAZolam (Xanax) 0.5 MG tablet 06-18 00:38: 17 Yes .5mg QD Take 0.5 mg by mouth 1 time each day. Brayan v[facility] clonazePAM (KlonoPIN) 1 MG tablet clonazePAM (KlonoPIN) 1 MG tablet 06-18 00:38: 17 Yes 1mg Q.5D Take 1 mg by mouth 2 times a day as needed for anxiety. Brayan Mosher DULoxetine (Cymbalta) [address] capsule DULoxetine (Cymbalta) [address] capsule 06-18 00:38: 17 Yes 60mg Q.5D Take 60 mg by mouth in the morning and 60 mg in the evening. Brayan Mosher busPIRone (Buspar) 30 MG tablet busPIRone (Buspar) 30 MG tablet 06-18 00:38: 17 Yes 1{tbl} Q.5D Take 1 tablet by mouth in the morning and 1 tablet in the evening. Brayan Mosher lithium ER (Eskalith) 450 MG 12 hr tablet lithium ER (Eskalith) 450 MG 12 hr tablet 06-18 00:38: 17 Yes 1{tbl} Q.5D Take 1 tablet by mouth in the morning and 1 tablet in the evening. Brayan Mosher Ubrogepant (Ubrelvy) 100 MG tablet Ubrogepant (Ubrelvy) 100 MG tablet 06-18 00:38: 17 Yes 1{tbl} Take 1 tablet by mouth if needed (not listed md clarify). Brayan Mosher traZODone (Desyrel) 50 MG tablet traZODone (Desyrel) 50 MG tablet 06-18 00:38: 17 Yes 1{tbl} QD Take 1 tablet by mouth 1 time each day. Brayan Mosher amantadine (Symmetrel) 100 MG capsule amantadine (Symmetrel) 100 MG capsule 06-18 00:38: 17 Yes 1{capsu le} Take 1 capsule by mouth 1 time each day at the same time. Brayan Mosher meclizine (Antivert) 25 MG tablet meclizine (Antivert) 25 MG tablet 06-18 00:38: 17 Yes 25mg Q.[id number] 3D Take 25 mg by mouth 3 times a day as needed for dizziness. Brayan Mosher cholecalcif tiffani 25 MCG (1000 UT) tablet cholecalcif tiffani 25 MCG (1000 UT) tablet 06-18 00:38: 17 Yes 25ug QD Take 25 mcg by mouth 1 time each day. Brayan Mosher olmesartan (BENIcar) 20 MG tablet olmesartan (BENIcar) 20 MG tablet 06-18 00:38: 17 Yes 20mg Q.5D Take 20 mg by mouth in the morning and 20 mg in the evening. Brayan Mosher allopurinol (Zyloprim) 100 MG tablet allopurinol (Zyloprim) 100 MG tablet 06-18 00:38: 17 Yes 100mg QD Take 100 mg by mouth 1 time each day. Brayan Mosher aspirin EC 81 MG EC tablet aspirin EC 81 MG EC tablet 06-18 00:38: 17 Yes 81mg QD Take 81 mg by mouth 1 time each day. Brayan Mosher traZODone (DESYREL) tablet 50 mg 06-13 02:00: 00 06-12 21:11 :20 No 50mg [facility] rosuvastati n (CRESTOR) tablet 20 mg 06-12 22:00: 00 06-12 21:11 :20 No 20mg [facility] hydroCHLORO thiazide 12.5 mg tablet 06-12 16:11: 20 Yes 12.5mg Take 1 tablet by mouth in the morning. [facility] olmesartan 20 mg tablet 06-12 16:11: 20 Yes 20mg Take 1 tablet by mouth. [facility] ubrogepant (UBRELVY) 100 mg tablet 06-12 16:11: 20 Yes 100mg Take 1 tablet by mouth ONCE PRN. [facility] aspirin 81 mg EC tablet 06-12 16:11: 20 Yes 81mg Take 1 tablet by mouth. [facility] amantadine HCL 100 mg capsule 06-12 16:11: 20 Yes 100mg Take 1 capsule by mouth in the morning. [facility] pantoprazol e (PROTONIX) EC tablet 40 mg pantoprazol e (PROTONIX) EC tablet 40 mg 06-12 14:00: 00 06-12 21:11 :20 No 40mg 40 mg, Oral, DAILY, First dose on Sun06/12/24 at 0900, Until Discontinu ed [facility] losartan (COZAAR) tablet 50 mg losartan (COZAAR) tablet 50 mg 06-12 14:00: 00 06-12 21:11 :20 No 50mg 50 mg, Oral, DAILY, First dose on Sun06/12/24 at 0900, Until Discontinu ed [facility] lamoTRIgine (LAMICTAL) tablet 25 mg lamoTRIgine (LAMICTAL) tablet 25 mg 06-12 14:00: 00 06-12 21:11 :20 No 25mg 25 mg, Oral, DAILY, First dose on Sun06/12/24 at 0900, Until Discontinu ed, Routine [facility] hydroCHLORO thiazide (ESIDRIX) tablet 12.5 mg hydroCHLORO thiazide (ESIDRIX) tablet 12.5 mg 06-12 14:00: 00 06-12 21:11 :20 No 12.5mg 12.5 mg, Oral, DAILY, First dose on Sun06/12/24 at 0900, Until Discontinu ed, Routine [facility] DULoxetine (CYMBALTA) capsule 60 mg DULoxetine (CYMBALTA) capsule 60 mg 06-12 14:00: 00 06-12 21:11 :20 No 60mg 60 mg, Oral, DAILY, First dose on Sun06/12/24 at 0900, Until Discontinu ed, Routine [facility] aspirin EC tablet 81 mg aspirin EC tablet 81 mg 06-12 14:00: 00 06-12 21:11 :20 No 81mg 81 mg, Oral, DAILY, First dose on Sun06/12/24 at 0900, Until Discontinu ed, Routine [facility] amantadine HCL (SYMMETREL) capsule 100 mg amantadine HCL (SYMMETREL) capsule 100 mg 06-12 14:00: 00 06-12 21:11 :20 No 100mg 100 mg, Oral, DAILY, First dose on Denise 06/12/24 at 0900, Until Discontinu ed, Routine [facility] sennosides- docusate sodium (SENOKOT-S) 8.6-50 mg per tablet 1 tablet sennosides- docusate sodium (SENOKOT-S) 8.6-50 mg per tablet 1 tablet 06-12 14:00: 00 06-12 21:11 :20 No 1{tbl} 1 tablet, Oral, DAILY, First dose on Denise 06/12/24 at 0900, Until Discontinu ed, Routine [facility] diclofenac (VOLTAREN) EC tablet 25 mg diclofenac (VOLTAREN) EC tablet 25 mg 06-12 13:45: 00 06-12 14:15 :00 No 25mg 25 mg, Oral, ONCE, 1 dose, On Sun06/12/24 at 0845, Routine, 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 approving non-formul marco a medication : KATH REID, Reason for non-formul marco a use: Specific indication for non-formul marco a alternativ e [facility] propranoloL (INDERAL) tablet 80 mg propranoloL (INDERAL) tablet 80 mg 06-12 13:00: 00 06-12 21:11 :20 No 80mg 80 mg, Oral, BID, First dose on Sun06/12/24 at 0800, Until Discontinu ed, Routine [facility] busPIRone (BUSPAR) tablet 30 mg busPIRone (BUSPAR) tablet 30 mg 06-12 13:00: 00 06-12 21:11 :20 No 30mg 30 mg, Oral, BID, First dose on Sun06/12/24 at 0800, Until Discontinu ed, Routine [facility] heparin (porcine) injection 5,000 Units [id number] 5895-0 5-01 13:00: 00 06-12 21:11 :20 No 5000U 5,000 Units, Subcutaneo us, Q12H, First dose on Sun06/12/24 at 0800, Until Discontinu ed, Routine [facility] KCL (KLOR-CON M20) tablet 40 mEq KCL (KLOR-CON M20) tablet 40 mEq 06-12 08:45: 00 06-12 08:42 :00 No 40meq 40 mEq, Oral, ONCE, 1 dose, On [facility] 06/12/24 at 0345, Routine [facility] Lidocaine (LIDOCARE) 4 % patch 3 Patch Lidocaine (LIDOCARE) 4 % patch 3 Patch 06-12 08:30: 00 06-12 20:43 :00 No 3{patch } 3 Patch, Topical, Administer over 12 Hours, ONCE, 1 dose, On [facility] 06/12/24 at 0330, Routine [facility] cyclobenzap rine (FLEXERIL) tablet 10 mg cyclobenzap rine (FLEXERIL) tablet 10 mg 06-12 07:45: 00 Yes 10mg 10 mg, Oral, TID, First dose on [facility] 06/12/24 at 0245, Until Discontinu ed, Routine [facility] amLODIPine (NORVASC) tablet 5 mg amLODIPine (NORVASC) tablet 5 mg 06-12 07:45: 00 06-12 21:11 :20 No 5mg 5 mg, Oral, DAILY, First dose on [facility] 06/12/24 at 0245, Until Discontinu ed, Routine [facility] clonazePAM (KLONOPIN) tablet 1 mg 06-12 07:33: 44 06-12 21:11 :20 No 1mg [facility] ondansetron (ZOFRAN (PF)) injection 4 mg 06-12 06:28: 24 06-12 21:11 :20 No 4mg [facility] acetaminoph en (TYLENOL) tablet 650 mg 06-12 06:28: 24 06-12 21:11 :20 No 650mg [facility] cyclobenzap rine 10 mg tablet 06-12 00:00: 00 Yes [id number] 10mg Take 1 tablet by mouth in the morning and 1 tablet at noon and 1 tablet in the evening. [facility] sodium chloride 0.9 % infusion sodium chloride [...] BUSPIRONE 30 mg tablet 05-23 00:00: 00 06-25 00:00 :00 No [id number] TAKE 1 TABLET BY MOUTH EVERY MORNING AND IN EVENING [facility] DULOXETINE 60 mg capsule 05-23 00:00: 00 06-25 00:00 :00 No [id number] TAKE 1 CAPSULE BY MOUTH EVERY MORNING AND IN EVENING [facility] rosuvastati n (Crestor) 20 MG tablet rosuvastati n (Crestor) 20 MG tablet 05-21 00:00: 00 Yes 20mg QD Take 20 mg by mouth 1 time each day. Brayan Mosher metoprolol succinate XL (Toprol-XL) 50 MG 24 hr tablet metoprolol succinate XL (Toprol-XL) 50 MG 24 hr tablet 05-14 00:00: 00 Yes 50mg QD Take 50 mg by mouth 1 time each day. Brayan Mosher hydroCHLORO thiazide 12.5 MG tablet hydroCHLORO thiazide 12.5 MG tablet - 00:00: 00 Yes 12.5mg QD Take 12.5 mg by mouth 1 time each day. Brayan Mosher propranolol (Inderal) 80 MG tablet propranolol (Inderal) 80 MG tablet 3-24 00:00: 00 Yes 80mg Q.5D Take 80 mg by mouth in the morning and 80 mg in the evening. Brayan Mosher clonazePAM 1 mg tablet 3- 00:00: 00 Yes [id number] 1mg Take 1 tablet by mouth as needed for Other (panic). [facility] DULOXETINE 60 mg capsule - 00:00: 00 05-23 00:00 :00 No [id number] TAKE 1 CAPSULE BY MOUTH EVERY MORNING AND IN EVENING [facility] BUSPIRONE 30 mg tablet 04-22 00:00: 00 05-23 00:00 :00 No [id number] TAKE 1 TABLET BY MOUTH EVERY MORNING AND IN EVENING [facility] lamoTRIgine (LaMICtal) 25 MG tablet lamoTRIgine (LaMICtal) 25 MG tablet 04-11 00:00: 00 Yes 25mg QD Take 25 [...] lithium carbonate CR 450 mg SR tablet 2-07 00:00: 00 06-12 00:00 :00 No [id number] 900mg Take 2 tablets by mouth at bedtime. [facility] clonazePAM 1 mg tablet 03-21 00:00: 00 04-27 00:00 :00 No [id number] 1mg Take 1 tablet by mouth as needed for Other (panic). [facility] DULoxetine 60 mg capsule 03-21 00:00: 00 04-22 00:00 :00 No [id number] 60mg Take 1 capsule by mouth in the morning and 1 capsule in the evening. [facility] busPIRone 30 mg tablet 03-21 00:00: 00 04-22 00:00 :00 No [id number] 30mg Take 1 tablet by mouth in the morning and 1 tablet in the evening. [facility] pregabalin 75 mg capsule 03-19 00:00: 00 Yes 1mg Robert Cali lamoTRIgine 25 mg tablet 03-14 00:00: 00 04-11 00:00 :00 No [id number] Take 1 tablet by mouth daily for 14 days, THEN 2 tablets daily for 14 days. [facility] Amantadine HCl 100 MG Amantadine HCl 100 MG 03-06 00:00: 00 No 1{capsu le} QD Amantadine HCl 100 MG Botox 200 UNIT Botox 200 UNIT 02-21 00:00: 00 No Botox 200 UNIT busPIRone 30 mg tablet 2023-02 00:00: 00 03-19 00:00 :00 No [id number] 30mg Take 1 tablet by mouth in the morning and 1 tablet in the evening. [facility] DULoxetine 60 mg capsule 2023-02 00:00: 00 03-19 00:00 :00 No [id number] 60mg Take 1 capsule by mouth in the morning and 1 capsule in the evening. [facility] Venofer 200 mg iron/10 mL intravenous solution 2023-02 00:00: 00 Yes 10mg iron/10 mL Robert Cali Venofer 200 mg iron/10 mL intravenous solution 2023-02 2 00:00: 00 Yes 10mg iron/10 mL Robert Cali traZODone 50 mg tablet 2023-02 00:00: 00 Yes [id number] Take 1-2 tablets daily at bedtime for sleep [facility] clonazePAM 1 mg tablet 2023-02 2-15 00:00: 00 03-16 00:00 :00 No [id number] TAKE 1/2 TO 1 TABLET BY MOUTH ONCE DAILY NEEDED FOR SEVERE ANXIETY [facility] traZODone 50 mg tablet 2023-02- 00:00: 00 01-27 00:00 :00 No [id number] Take 1-2 tablets for sleep [facility] Cyclobenzap rine HCl 10 MG Cyclobenzap rine HCl 10 MG 2023-02- 00:00: 00 No 1{table t_at_be dtime_a s_neede d} QD Cyclobenza amber HCl 10 MG Venofer 200 mg iron/10 mL intravenous solution 2023-02 00:00: 00 Yes 10mg iron/10 mL Robert Cali busPIRone 30 mg tablet 2023-02 00:00: 00 02-11 00:00 :00 No [id number] TAKE 1 TABLET BY MOUTH EVERY MORNING AND TAKE ONE TABLET BY MOUTH EVERY EVENING [facility] DULoxetine 60 mg capsule 2023-02 00:00: 00 02-11 00:00 :00 No [id number] TAKE 1 CAPSULE BY MOUTH 2 TIMES A DAY ( EVERY MORNING AND EVERY EVENING ) [facility] ibuprofen 800 mg tablet 2023-02 00:00: 00 Yes 1mg Robert Cali Methocarbam ol 500 MG Methocarbam ol 500 MG 2023-02 00:00: 00 No 1.5{tab lets} BID Methocarba mol 500 MG ibuprofen 800 mg tablet 2023-02 00:00: 00 Yes 1mg Robert Cali TRAZODONE 50 mg tablet 2023-02 00:00: 00 01-20 00:00 :00 No [id number] TAKE 1 AND 1/2 TABLET BY MOUTH AT BEDTIME [facility] Vitamin D3 25 mcg (1,000 unit) tablet 2023-0217 00:00: 00 Yes 1(1,000 unit) Robert Cali diclofenac sodium 75 mg tablet,mikal yed release 2023-02 0-15 00:00: 00 Yes 1mg Robert Cali lithium carbonate CR 450 mg SR tablet 2023-02 0-03 00:00: 00 03-19 00:00 :00 No [id number] TAKE TWO TABLETS BY MOUTH AT BEDTIME [facility] [facility] LAMOTRIGINE 100 mg tablet 11-09 00:00: 00 03-14 00:00 :00 No [id number] TAKE 1 TABLET BY MOUTH 2 TIMES A DAY (MORNING AND EVENING ) TELL DOCTOR IF YOU MISSED 4 OR MORE DAYS OF THIS MEDICATION , WILL NEED TO START AT LOWER DOSE [facility] clonazePAM 1 mg tablet 11-09 00:00: 00 01-24 00:00 :00 No [id number] TAKE 1/2 TO 1 TABLET BY MOUTH ONCE DAILY NEEDED FOR SEVERE ANXIETY [facility] lithium carbonate CR 450 mg SR tablet 10-16 00:00: 00 11-14 00:00 :00 No [id number] 900mg Take 2 tablets by mouth at bedtime. [facility] traZODone 50 mg tablet 8-07 00:00: 00 12-10 00:00 :00 No [id number] 75mg Take 1.5 tablets by mouth at bedtime for 90 days. [facility] busPIRone 30 mg tablet 09-02 00:00: 00 01-07 00:00 :00 No [id number] 30mg Take 1 tablet by mouth in the morning and 1 tablet in the evening. [facility] DULoxetine 60 mg capsule 09-02 00:00: 00 01-07 00:00 :00 No [id number] 60mg Take 1 capsule by mouth in the morning and 1 capsule in the evening. Follow up for refills [facility] clonazePAM (KLONOPIN) 1 mg tablet 09-02 00:00: 00 11-09 00:00 :00 No [id number] 1mg Take 1 tablet by mouth once daily as needed for Other (severe anxiety). Take 0.5mg to 1mg as needed for severe anxiety [facility] traZODone 50 mg tablet 08-27 00:00: 00 09-18 00:00 :00 No [id number] 50mg Take 1 tablet by mouth at bedtime. May cut tablet in half. Follow up for refills [facility] busPIRone 10 mg tablet 08-27 00:00: 00 09-02 00:00 :00 No [id number] 20mg Take 2 tablets by mouth in the morning and 2 tablets in the evening. Follow up for refills [facility] ferric derisomalto se (MONOFERRIC ) 100 mg iron/mL Soln 08-07 00:00: 00 08-08 04:59 :00 No [id number] 500mg Inject 500 mg intravenou sly once now for 1 dose. [facility] clonazePAM 1 mg tablet 08-01 00:00: 09-02 00:00 :00 No [id number] Take half to 1 tablet by mouth once daily as needed for extreme anxiety. Attempt to minimize use. Follow-up for continued refills. [facility] lithium carbonate CR 450 mg SR tablet 07-30 00:00: 00 10-16 00:00 :00 No [id number] 900mg Take 2 tablets by mouth at bedtime. [facility] omeprazole 40 mg capsule 07-25 00:00: 00 07-21 04:59 :00 No [id number] 40mg Take 1 capsule by mouth in the morning and 1 capsule in the evening. Take with meals. Do all this for 360 days. [facility] sucralfate 1 gram tablet 07-25 00:00: 00 10-24 04:59 :00 No [id number] 1g Take 1 tablet by mouth before meals and at bedtime for 90 days. [facility] traZODone 50 mg tablet 07-18 00:00: 00 08-26 00:00 :00 No [id number] 50mg Take 1 tablet by mouth at bedtime. May cut tablet in half. Follow up for refills [facility] DULoxetine 60 mg capsule 06-21 00:00: 00 09-02 00:00 :00 No [id number] 60mg Take 1 capsule by mouth in the morning and 1 capsule in the evening. Follow up for refills [facility] busPIRone 10 mg tablet 06-21 00:00: 00 08-27 00:00 :00 No [id number] 20mg Take 2 tablets by mouth in the morning and 2 tablets in the evening. Follow up for refills [facility] traZODone 50 mg tablet 06-21 00:00: 00 07-18 00:00 :00 No [id number] 50mg Take 1 tablet by mouth at bedtime. May cut tablet in half. Follow up for refills [facility] clonazePAM 1 mg tablet 06-12 00:00: 00 07-30 00:00 :00 No [id number] Take half to 1 tablet by mouth once daily as needed for extreme anxiety. Attempt to minimize use. Follow-up for continued refills. [facility] iopamidol (ISOVUE 370-500 mL) injection 80 mL 06-07 02:57: 00 06-07 02:45 :00 No [id number] 80mL 80 mL, Intravenou s, ONCE, 1 dose, On Sun06/07/23 at 2200, Routine [facility] NaCl 0.9% (NS) injection 5 mL 06-07 02:36: 00 Yes 5mL 5 mL, Slow IV Push, PRN - SEE INSTRUCTIO NS, Starting on Sun06/07/23 at 2136, Until Discontinu ed, 10 mL [facility] traZODone 50 mg tablet 05-22 00:00: 00 06-21 00:00 :00 No [id number] 50mg Take 1 tablet by mouth at bedtime. May cut tablet in half. [facility] DULoxetine 60 mg capsule 05-22 00:00: 00 06-21 00:00 :00 No [id number] 60mg Take 1 capsule by mouth in the morning and 1 capsule in the evening. [facility] busPIRone 10 mg tablet 05-07 00:00: 00 06-21 00:00 :00 No [id number] 20mg Take 2 tablets by mouth in the morning and 2 tablets in the evening. [facility] traZODone 50 mg tablet 04-24 00:00: 00 05-22 00:00 :00 No [id number] 50mg Take 1 tablet by mouth at bedtime. May cut tablet in half. [facility] DULoxetine 60 mg capsule 04-24 00:00: 00 05-22 00:00 :00 No [id number] 60mg Take 1 capsule by mouth in the morning and 1 capsule in the evening. [facility] DULoxetine 60 mg capsule 03-07 00:00: 00 04-23 00:00 :00 No [id number] 60mg Take 1 capsule by mouth in the morning and 1 capsule in the evening. [facility] Ubrelvy 100 MG Ubrelvy 100 MG 02-24 00:00: 00 No Ubrelvy 100 MG losartan potassium (LOSARTAN ORAL) 02-15 09:55: 13 06-12 00:00 :00 No 20mg Take 20 mg by mouth. [facility] propranolol 80 mg tablet 02-15 09:55: 13 06-12 00:00 :00 No 80mg Take 1 tablet by mouth in the morning and 1 tablet in the evening. [facility] allopurinoL 100 mg tablet - 09:55: 13 06-12 00:00 :00 No 100mg Take 1 tablet by mouth in the morning. [facility] lithium carbonate CR 450 mg SR tablet 2022-02 2-11 00:00: 00 07-29 00:00 :00 No [id number] 900mg Take 2 tablets by mouth at bedtime. [facility] clonazePAM 1 mg tablet 2022-02 00:00: 00 06-11 00:00 :00 No [id number] Take half to 1 tablet by mouth once daily as needed for extreme anxiety. Attempt to minimize use. [facility] busPIRone 10 mg tablet 2022-02 00:00: 00 05-07 00:00 :00 No [id number] 20mg Take 2 tablets by mouth in the morning and 2 tablets in the evening. [facility] traZODone 50 mg tablet 2022-02 00:00: 00 04-22 00:00 :00 No [id number] 50mg Take 1 tablet by mouth at bedtime. May cut tablet in half. [facility] DULoxetine 60 mg capsule 2022-02 00:00: 00 03-07 00:00 :00 No [id number] 60mg Take 1 capsule by mouth in the morning and 1 capsule in the evening. [facility] TAKE 1 TABLET EVERY 4 HOURS NEEDED. 2022-02 00:00: 00 06-12 00:00 :00 No 10 Robert Cali busPIRone 15 mg tablet 2022-02 00:00: 00 01-22 00:00 :00 No [id number] 15mg Take 1 tablet by mouth in the morning and 1 tablet in the evening. [facility] lithium carbonate CR 450 mg SR tablet 2022-02 00:00: 00 01-22 00:00 :00 No [id number] 900mg Take 2 tablets by mouth at bedtime. [facility] traZODone 50 mg tablet 2022-02 00:00: 00 01-22 00:00 :00 No [id number] 50mg Take 1 tablet by mouth at bedtime. May cut tablet in half. [facility] DULoxetine 60 mg capsule 2022-02 00:00: 00 01-22 00:00 :00 No [id number] 60mg Take 1 capsule by mouth in the morning and 1 capsule in the evening. [facility] clonazePAM 1 mg tablet 2022-02 00:00: 00 01-22 00:00 :00 No [id number] Take 1 tablet by mouth once daily as needed for extreme anxiety. Attempt to minimize use. [facility] busPIRone 15 mg tablet 2022-02 00:00: 00 12-20 00:00 :00 No [id number] 15mg Take 1 tablet by mouth in the morning and 1 tablet in the evening. [facility] lithium carbonate CR 450 mg SR tablet 2022-02 00:00: 00 12-20 00:00 :00 No [id number] 900mg Take 2 tablets by mouth at bedtime. [facility] traZODone 50 mg tablet 2022-02 00:00: 00 12-20 00:00 :00 No [id number] 50mg Take 1 tablet by mouth at bedtime. May cut tablet in half. [facility] TAKE 2 TABLETS ONCE A DAY BY MOUTH 2022-02 00:00: 00 06-12 00:00 :00 No 200 Robert Arnol Cali DULoxetine 60 mg capsule 2022-02 00:00: 00 12-20 00:00 :00 No [id number] 60mg Take 1 capsule by mouth in the morning and 1 capsule in the evening. [facility] simethicone (GAS RELIEF (SIMETHICON E)) 40 mg/0.6 mL drops 2022-02 13:19: 00 11-13 16:49 :02 No PRN, Starting on Sun11/13/22 at 0819, Until Sun11/13/22 at 1149, Routine, Intra-op [facility] losartan potassium (LOSARTAN ORAL) 2022-02 09:49: 01 Yes 20mg Take 20 mg by mouth. [facility] propranolol 80 mg tablet 2022-02 09:49: 01 Yes 80mg Take 1 tablet by mouth in the morning and 1 tablet in the evening. [facility] allopurinoL 100 mg tablet 2022-02 09:49: 01 Yes 100mg Take 1 tablet by mouth in the morning. [facility] sucralfate 1 gram tablet 2022-02 0-02 00:00: 00 12-14 04:59 :00 No 1g Take 1 tablet by mouth in the morning and 1 tablet in the evening. Do all this for 30 days. [facility] ketorolac (TORADOL) injection 30 mg 11-03 17:00: 00 11-03 16:25 :00 No 30mg 30 mg, Slow IV Push, ONCE, 1 dose, On Sun11/03/22 at 1200, Routine [facility] NaCl 0.9% (NS) bolus infusion 500 mL 11-03 16:45: 00 11-03 18:14 :00 No 500mL at 999 mL/hr, 500 mL, IV Infusion, ONCE, 1 dose, [facility]03/22 [facility] 1145[facility]- [facility]oph en-caff (ESGIC) 50-325-40 mg tablet 1 tablet 11-03 16:00: 00 11-03 16:21 :00 No 1{tbl} 1 tablet, Oral, ONCE, 1 dose, On Sun11/03/22 at 1100, [facility] dexamethaso ne sod phos PF injection 10 mg 11-03 16:00: 00 11-03 16:27 :00 No 10mg 10 mg, Slow IV Push, ONCE, 1 dose, On Sun11/03/22 at 1100, 1 mL [facility] metoclopram chelo HCl (REGLAN) injection 10 mg 11-03 16:00: 00 11-03 16:28 :00 No 10mg 10 mg, Slow IV Push, ONCE, 1 dose, On Sun11/03/22 at 1100, [facility] diphenhydrA MINE (BENADRYL) injection 25 mg 11-03 16:00: 00 11-03 16:30 :00 No 25mg 25 mg, Slow IV Push, ONCE, 1 dose, On Sun11/03/22 at 1100, STAT [facility] atorvastati n 10 mg tablet 11-03 10:48: 00 11-03 00:00 :00 No 10mg Take 10 mg by mouth at bedtime. [facility] butalbital- acetaminoph en-caff 50-325-40 mg tablet 11-03 00:00: 00 Yes [id number] 1{tbl} Take 1 tablet by mouth every 6 (six) hours as needed for Pain (scale 7-10) or Pain (scale 4-6) for up to 12 doses. [facility] peg-electro lyte soln 236-22.74-6 .74 -5.86 gram solution 10-19 00:00: 00 11-03 00:00 :00 No [id number] Take as directed before colonoscop y [facility] TAKE 1 TABLET DAILY. 10-12 00:00: 00 06-12 00:00 :00 No 40 Robert Cali busPIRone 15 mg tablet 10-04 00:00: 00 12-13 00:00 :00 No [id number] 15mg Take 1 tablet by mouth in the morning and 1 tablet in the evening. [facility] clonazePAM 1 mg tablet 09-28 00:00: 00 12-20 00:00 :00 No [id number] Take 1 tablet by mouth twice daily as needed for anxiety. [facility] DULoxetine 60 mg capsule 09-26 00:00: 00 11-22 00:00 :00 No [id number] 60mg Take 1 capsule by mouth in the morning and 1 capsule in the evening. [facility] lithium carbonate CR 450 mg SR tablet 09-13 00:00: 00 11-28 00:00 :00 No [id number] 900mg Take 2 tablets by mouth at bedtime. [facility] busPIRone 10 mg tablet 09-13 00:00: 00 10-04 00:00 :00 No [id number] 10mg Take 1 tablet by mouth in the morning and 1 tablet in the evening. [facility] clonazePAM 1 mg tablet 19 00:00: 00 09-25 00:00 :00 No [id number] Take 1 tablet by mouth twice daily as needed for anxiety. [facility] TAKE 2 TABLETS ONCE A DAY BY MOUTH 08-24 00:00: 00 06-12 00:00 :00 No 200 Roberteliz Cali FUROSEMIDE ORAL 07-26 09:33: 26 07-26 00:00 :00 No 40mg Take 40 mg by mouth daily. [facility] traZODone 50 mg tablet 07-26 00:00: 00 11-28 00:00 :00 No [id number] 50mg Take 1 tablet by mouth at bedtime. May cut tablet in half. [facility] DULoxetine 60 mg capsule 07-26 00:00: 00 09-25 00:00 :00 No [id number] 60mg Take 1 capsule by mouth in the morning and 1 capsule in the evening. [facility] lithium carbonate CR 450 mg SR tablet 07-26 00:00: 00 09-13 00:00 :00 No [id number] 900mg Take 2 tablets by mouth at bedtime. [facility] busPIRone 10 mg tablet 07-26 00:00: 00 09-13 00:00 :00 No [id number] 10mg Take 1 tablet by mouth in the morning and 1 tablet in the evening. [facility] INHALE 2 PUFFS EVERY 4-6 HOURS NEEDED. 07-22 00:00: 00 06-12 00:00 :00 No [id number] Robert Arnol Cali clonazePAM 1 mg tablet 24 00:00: 00 08-29 00:00 :00 No [id number] Take 1 tablet by mouth twice daily as needed for anxiety. [facility] TAKE 1 CAPSULE 3 TIMES DAILY WITH MEALS. 16 00:00: 00 06-12 00:00 :00 No 120 Robert Arnol Cali DULoxetine 60 mg capsule 06-20 00:00: 00 07-26 00:00 :00 No [id number] 60mg Take 1 capsule by mouth in the morning and 1 capsule in the evening. [facility] lithium carbonate CR 450 mg SR tablet 06-20 00:00: 00 07-26 00:00 :00 No [id number] 900mg Take 2 tablets by mouth at bedtime. [facility] TAKE 1 TABLET TWICE DAILY. [...] 04-20 00:00: 00 07-26 00:00 :00 No [id number] 50mg Take 1 tablet by mouth at bedtime. May cut tablet in half. [facility] clonazePAM 1 mg tablet 04-20 00:00: 00 07-05 00:00 :00 No [id number] Take 1 tablet by mouth twice daily as needed for anxiety. [facility] DULoxetine 60 mg capsule 04-20 00:00: 00 06-17 00:00 :00 No [id number] 60mg Take 1 capsule by mouth in the morning and 1 capsule in the evening. [facility] lithium carbonate CR 450 mg SR tablet 04-20 00:00: 00 06-17 00:00 :00 No [id number] 900mg Take 2 tablets by mouth at bedtime. [facility] traZODone 50 mg tablet 1-04 00:00: 00 04-20 00:00 :00 No [id number] 50mg Take 1 tablet by mouth at bedtime. May cut tablet in half. [facility] lithium carbonate CR 450 mg SR tablet - 00:00: 00 04-20 00:00 :00 No [id number] 900mg Take 2 tablets by mouth at bedtime. [facility] DULoxetine 60 mg capsule 02-15 00:00: 00 04-19 00:00 :00 No [id number] 60mg Take 1 capsule by mouth in the morning and 1 capsule in the evening. [facility] clonazePAM 1 mg tablet 02-15 00:00: 00 04-19 00:00 :00 No [id number] Take 1 tablet by mouth twice daily as needed for anxiety. [facility] lithium 600 mg capsule 02-15 00:00: 00 02-15 00:00 :00 No [id number] 600mg Take 1 capsule by mouth in the morning and 1 capsule in the evening. [facility] DULoxetine 60 mg capsule 2021-02 00:00: 00 02-15 00:00 :00 No [id number] 60mg Take 1 capsule by mouth in the morning and 1 capsule in the evening. [facility] traZODone 50 mg tablet 2021-02 00:00: 00 02-15 00:00 :00 No [id number] 50mg Take 1 tablet by mouth at bedtime. May cut tablet in half. [facility] clonazePAM 1 mg tablet 2021-02 00:00: 00 02-15 00:00 :00 No [id number] Take 1 tablet by mouth twice daily as needed for anxiety. [facility] DULoxetine 60 mg capsule 2021-02 00:00: 00 02-07 00:00 :00 No [id number] 60mg Take 1 capsule by mouth in the morning and 1 capsule in the evening. [facility] traZODone 50 mg tablet 2021-02 00:00: 00 01-11 00:00 :00 No [id number] 50mg Take 1 tablet by mouth at bedtime. May cut tablet in half. [facility] DULoxetine 60 mg capsule 2021-1 0-25 00:00: 00 01-09 00:00 :00 No [id number] 60mg Take 1 capsule by mouth in the morning and 1 capsule in the evening. [facility] lithium 600 mg capsule 2021-1 0-20 00:00: 00 02-15 00:00 :00 No [id number] 600mg Take 1 capsule by mouth in the morning and 1 capsule in the evening. [facility] lamoTRIgine 25 mg tablet 2021- 0-20 00:00: 00 01-11 00:00 :00 No [id number] 50mg Take 2 tablets by mouth in the morning and 2 tablets in the evening. [facility] clonazePAM 1 mg tablet 2021-02 0-20 00:00: 00 01-09 00:00 :00 No [id number] Take 1 tablet by mouth twice daily as needed for anxiety. [facility] lamoTRIgine 25 mg tablet 2021-0 8-26 00:00: 00 11-30 00:00 :00 No [id number] 50mg Take 2 tablets by mouth in the morning and 2 tablets in the evening. [facility] clonazePAM 1 mg tablet 2021-0 8-25 00:00: 00 11-30 00:00 :00 No [id number] Take no more than 1 mg twice daily as needed for anxiety [facility] lithium 600 mg capsule 2021-0 8-25 00:00: 00 11-30 00:00 :00 No [id number] 600mg Take 1 capsule by mouth in the morning and 1 capsule in the evening. [facility] Lamotrigine 50 mg tablet 2021-0 8-25 00:00: 00 10-07 00:00 :00 No [id number] 50mg Take 1 tablet by mouth in the morning and 1 tablet in the evening. [facility] Lamotrigine 50 mg tablet 2021-0 8-11 00:00: 00 10-06 00:00 :00 No [id number] 50mg Take 1 tablet by mouth in the morning and 1 tablet in the evening. [facility] DULoxetine 60 mg capsule 727 00:00: 00 12-05 00:00 :00 No [id number] 60mg Take 1 capsule by mouth in the morning and 1 capsule in the evening. [facility] Lamotrigine 50 mg tablet 18 00:00: 00 09-22 00:00 :00 No [id number] 50mg Take 1 tablet by mouth in the morning and 1 tablet in the evening. [facility] lithium 600 mg capsule 7-13 00:00: 00 10-06 00:00 :00 No [id number] 600mg Take 1 capsule by mouth in the morning and 1 capsule in the evening. [facility] DULoxetine 60 mg capsule 08-09 00:00: 00 Yes [id number] 60mg Take 1 capsule by mouth 2 (two) times daily. [facility] traZODone 50 mg tablet 08-09 00:00: 00 01-02 00:00 :00 No [id number] 50mg Take 1 tablet by mouth at bedtime. May cut tablet in half. [facility] clonazePAM 1 mg tablet 08-09 00:00: 00 10-06 00:00 :00 No [id number] Take no more than 1 mg twice daily as needed for anxiety [facility] CYANOCOBALA M INJ [id number] [employer] 06-04 00:00: 00 Yes Robert Cali DULoxetine 60 mg capsule 05-26 00:00: 00 08-09 00:00 :00 No [id number] 60mg Take 1 capsule by mouth 2 (two) times daily. [facility] traZODone 50 mg tablet 05-26 00:00: 00 08-09 00:00 :00 No [id number] 50mg Take 1 tablet by mouth at bedtime. May cut tablet in half. [facility] vitamin B-12 1,000 mcg tablet 05-23 00:00: 00 11-03 00:00 :00 No [id number] 1000ug Take 1 tablet by mouth daily. [facility] cyanocobala min 1,000 mcg/mL injection 05-23 00:00: 00 11-03 00:00 :00 No [id number] 1000ug 1 mL by Intramuscu lar route weekly. [facility] losartan potassium (LOSARTAN ORAL) 05-17 09:24: 36 Yes 20mg Take 20 mg by mouth. [facility] FUROSEMIDE ORAL 05-17 09:24: 36 Yes 40mg Take 40 mg by mouth daily. [facility] magnesium gluconate 200 mg tablet 05-17 00:00: 00 Yes [id number] 400mg Take 2 tablets by mouth 2 (two) times daily. [facility] gabapentin 300 mg capsule 05-17 00:00: 00 11-03 00:00 :00 No [id number] 300mg Take 1 capsule by mouth 3 (three) times daily. [facility] rizatriptan 5 mg disintegrat ing tablet 05-17 00:00: 00 11-03 00:00 :00 No [id number] 5mg Take 1 tablet by mouth as needed for Migraine (Take 5mg at the beginning of the headache can repeat 2h after if headaches persists). May repeat in 2 hours if needed [facility] magnesium gluconate 200 mg tablet 05-17 00:00: 00 11-03 00:00 :00 No [id number] 400mg Take 2 tablets by mouth 2 (two) times daily. [facility] artificial tears,hypro mellose, 0.5 % ophthalmic drops 05-17 00:00: 00 06-22 00:00 :00 No [id number] 1[drp] Place 1 Drop in left eye as needed for Dry eyes. [facility] Dose Unknown 05-16 00:00: 00 Yes Robert Cali Dose Unknown 05-16 00:00: 00 Yes Robert Arnol Viraj Dose Unknown 2022-0 4-04 00:00: 00 Yes Robert F Viraj Dose Unknown 2021-0 4-04 00:00: 00 Yes Robert F Viraj Dose Unknown 2021-0 4-04 00:00: 00 Yes Robert F Viraj Dose Unknown 202-0 4-04 00:00: 00 Yes Robert F Viraj Dose Unknown 202-0 4-04 00:00: 00 Yes Robert F Viraj Dose Unknown 202-0 4-04 00:00: 00 Yes Robert F Viraj Dose Unknown 202-0 4-04 00:00: 00 Yes Robert F Viraj [...] Unknown 2021-0 4-04 00:00: 00 Yes Robert Cali clonazePAM 1 mg tablet 2021-0 3-31 00:00: 00 08-09 00:00 :00 No [id number] Take no more than 1 mg twice daily as needed for anxiety [facility] lithium 600 mg capsule 2021-0 3-30 00:00: 00 06-12 00:00 :00 No [id number] 600mg Take 1 capsule by mouth 2 (two) times daily. [facility] ondansetron (ZOFRAN ODT) 4 mg disintegrat ing tablet 2020-0 7 00:00: 00 11-03 00:00 :00 No [id number] 4mg Take 1 tablet by mouth every 8 (eight) hours as needed for Nausea and Vomiting (N/V). [facility] butalbital- acetaminoph en-caff 50-325-40 mg tablet 0 -22 00:00: 00 0511 00:00 :00 No [id number] 1{tbl} Take 1 tablet by mouth every 6 (six) hours as needed for Pain (scale 7-10). [facility] Dose Unknown 0 07-14 00:00: 00 Yes [...] 1 tablet by mouth in the morning. [facility] atorvastati n 10 mg tablet 08-05 13:17: 52 Yes 10mg Take 10 mg by mouth at bedtime. [facility] propranolol 80 mg tablet 08-05 13:12: 38 Yes 80mg Take 1 tablet by mouth in the morning and 1 tablet in the evening. [facility] nitrofurant oin monohydrate /macrocryst als 100 mg [...] day by oral route for 7 days. [facility] alprazolam 0.5 mg tablet Take 1 tablet 3 times a day by oral route. alprazolam 0.5 mg tablet Take 1 tablet 3 times a day by oral route. No 1 TID alprazolam 0.5 mg tablet Take 1 tablet 3 times a day by oral route. [facility] amlodipine 10 mg tablet Take 1 tablet every day by oral route. amlodipine 10 mg tablet Take 1 tablet every day by oral route. No 1 Q1D amlodipine 10 mg tablet Take 1 tablet every day by oral route. [facility] losartan 100 mg tablet Take 1 tablet every day by oral route. losartan 100 mg tablet Take 1 tablet every day by oral route. No 1 Q1D losartan 100 mg tablet Take 1 tablet every day by oral route. [facility] omeprazole 40 mg capsule,del ayed release Take 1 capsule every day by oral route. omeprazole 40 mg capsule,del ayed release Take 1 capsule every day by oral route. No 1capsul e(s) Q1D omeprazole 40 mg capsule,de layed release Take 1 capsule every day by oral route. [facility] propranolol propranolol No pr opranolo l [facility] rosuvastati n 10 mg tablet Take 1 tablet every day by oral route. rosuvastati n 10 mg tablet Take 1 tablet every day by oral route. No 1 Q1D rosuvastat in 10 mg tablet Take 1 tablet every day by oral route. [facility] progesteron e micronized 100 mg capsule TAKE 1 CAPSULE BY MOUTH DAILY progesteron e micronized 100 mg capsule TAKE 1 CAPSULE BY MOUTH DAILY No 1capsul e(s) Q1D progestero ne micronized 100 mg capsule TAKE 1 CAPSULE BY MOUTH DAILY [facility] Propranolol HCl Propranolol HCl No Propranolo l HCl levETIRAcet am 500 MG levETIRAcet am 500 MG No 1{table t} BID levETIRAce obrien 500 MG acetaZOLAMI DE 250 MG acetaZOLAMI DE 250 MG No 1{table t_as_ne eded} BID acetaZOLAM CHELO 250 MG lamoTRIgine 100 MG lamoTRIgine 100 MG No lamoTRIgin e 100 MG Immunizations Ordered Immunization Name Filled Immunization Name Date Status Comments Source TDAP 2023-10-02 00:00:00 Completed [facility] Influenza Virus Vaccine Quad .5 mL IM 6+ MO (FLUZONE/FLULAVAL/F LUARIX) 2023-10-02 00:00:00 Completed [facility] SARS-COV-2 COVID-19 VACCINE - (MODERNA) 2023-10-02 00:00:00 Completed [facility] SARS-COV-2 COVID-19 VACCINE - (MODERNA) 2023-09-28 00:00:00 Completed [facility] TDAP 2023-07-30 00:00:00 Completed [facility] Influenza Virus Vaccine Quad .5 mL IM 6+ MO (FLUZONE/FLULAVAL/F LUARIX) 2023-07-30 00:00:00 Completed [facility] TDAP 2023-07-26 09:30:00 Completed [facility] Influenza Virus Vaccine Quad .5 mL IM 6+ MO (FLUZONE/FLULAVAL/F LUARIX) 2023-07-26 09:30:00 Completed [facility] SARS-COV-2 COVID-19 VACCINE - (MODERNA) 2023-07-26 09:30:00 Completed [facility] TDAP 2023-07-02 00:00:00 Completed [facility] Influenza Virus Vaccine Quad .5 mL IM 6+ MO (FLUZONE/FLULAVAL/F LUARIX) 2023-07-02 00:00:00 Completed [facility] SARS-COV-2 COVID-19 VACCINE - (MODERNA) 2023-07-02 00:00:00 Completed [facility] TDAP 2023-06-13 00:00:00 Completed [facility] Influenza Virus Vaccine Quad .5 mL IM 6+ MO (FLUZONE/FLULAVAL/F LUARIX) 2023-06-13 00:00:00 Completed [facility] SARS-COV-2 COVID-19 VACCINE - (MODERNA) 2023-06-13 00:00:00 Completed [facility] TDAP 2023-06-07 21:35:00 Completed [facility] Influenza Virus Vaccine Quad .5 mL IM 6+ MO (FLUZONE/FLULAVAL/F LUARIX) 2023-06-07 21:35:00 Completed [facility] SARS-COV-2 COVID-19 VACCINE - (MODERNA) 2023-06-07 21:35:00 Completed [facility] TDAP 2023-05-29 00:00:00 Completed [facility] Influenza Virus Vaccine Quad .5 mL IM 6+ MO (FLUZONE/FLULAVAL/F LUARIX) 2023-05-29 00:00:00 Completed [facility] SARS-COV-2 COVID-19 VACCINE - (MODERNA) 2023-05-29 00:00:00 Completed [facility] TDAP 2023-05-11 00:00:00 Completed [facility] Influenza Virus Vaccine Quad .5 mL IM 6+ MO (FLUZONE/FLULAVAL/F LUARIX) 2023-05-11 00:00:00 Completed [facility] SARS-COV-2 COVID-19 VACCINE - (MODERNA) 2023-05-11 00:00:00 Completed [facility] TDAP 2023-05-09 00:00:00 Completed [facility] Influenza Virus Vaccine Quad .5 mL IM 6+ MO (FLUZONE/FLULAVAL/F LUARIX) 2023-05-09 00:00:00 Completed [facility] SARS-COV-2 COVID-19 VACCINE - (MODERNA) 2023-05-09 00:00:00 Completed [facility] TDAP 2023-03-28 00:00:00 Completed [facility] Influenza Virus Vaccine Quad .5 mL IM 6+ MO (FLUZONE/FLULAVAL/F LUARIX) 2023-03-28 00:00:00 Completed [facility] SARS-COV-2 COVID-19 VACCINE - (MODERNA) 2023-03-28 00:00:00 Completed [facility] Influenza, injectable, MDCK, quadrivalent, preservative Influenza, injectable, MDCK, quadrivalent, preservative 2022-10-27 00:00:00 Completed [facility] influenza, injectable influenza, injectable 2020-11-13 00:00:00 Completed [facility] Tdap Tdap 2020-09-11 00:00:00 Completed [facility] Moderna COVID-19 Vaccine Moderna COVID-19 Vaccine 2020-04-24 00:00:00 Completed [facility]i Moderna COVID-19 Vaccine Moderna COVID-19 Vaccine 2020-03-19 00:00:00 Completed [facility] TDAP Unknown Completed [facility] Influenza Virus Vaccine Quad .5 mL IM 6+ MO (FLUZONE/FLULAVAL/F LUARIX) Unknown Completed [facility] SARS-COV-2 COVID-19 VACCINE - (MODERNA) Unknown Completed [facility] TDAP Unknown Completed [facility] Influenza Virus Vaccine Quad .5 mL IM 6+ MO (FLUZONE/FLULAVAL/F LUARIX) Unknown Completed [facility] SARS-COV-2 COVID-19 VACCINE - (MODERNA) Unknown Completed [facility] TDAP Unknown Completed [facility] Influenza Virus Vaccine Quad .5 mL IM 6+ MO (FLUZONE/FLULAVAL/F LUARIX) Unknown Completed [facility] SARS-COV-2 COVID-19 VACCINE - (MODERNA) Unknown Completed [facility] TDAP Unknown Completed [facility] Influenza Virus Vaccine Quad .5 mL IM 6+ MO (FLUZONE/FLULAVAL/F LUARIX) Unknown Completed [facility] SARS-COV-2 COVID-19 VACCINE - (MODERNA) Unknown Completed [facility] TDAP Unknown Completed [facility] Influenza Virus Vaccine Quad .5 mL IM 6+ MO (FLUZONE/FLULAVAL/F LUARIX) Unknown Completed [facility] SARS-COV-2 COVID-19 VACCINE - (MODERNA) Unknown Completed [facility] TDAP Unknown Completed [facility] Influenza Virus Vaccine Quad .5 mL IM 6+ MO (FLUZONE/FLULAVAL/F LUARIX) Unknown Completed [facility] SARS-COV-2 COVID-19 VACCINE - (MODERNA) Unknown [facility] Influenza Virus Vaccine Quad .5 mL IM 6+ MO (FLUZONE/FLULAVAL/F LUARIX) Unknown Completed [facility] SARS-COV-2 COVID-19 VACCINE - (MODERNA) Unknown Completed [facility] TDAP Unknown Completed [facility] Influenza Virus Vaccine Quad .5 mL IM 6+ MO (FLUZONE/FLULAVAL/F LUARIX) Unknown Completed [facility] SARS-COV-2 COVID-19 VACCINE - (MODERNA) Unknown Completed [facility] TDAP Unknown Completed [facility] Influenza Virus Vaccine Quad .5 mL IM 6+ MO (FLUZONE/FLULAVAL/F LUARIX) Unknown Completed [facility] SARS-COV-2 COVID-19 VACCINE - (MODERNA) Unknown Completed [facility] TDAP Unknown Completed [facility] Influenza Virus Vaccine Quad .5 mL IM 6+ MO (FLUZONE/FLULAVAL/F LUARIX) Unknown Completed [facility] SARS-COV-2 COVID-19 VACCINE - (MODERNA) Unknown Completed [facility] TDAP Unknown Completed [facility] Influenza Virus Vaccine Quad .5 mL IM 6+ MO (FLUZONE/FLULAVAL/F LUARIX) Unknown Completed [facility] SARS-COV-2 COVID-19 VACCINE - (MODERNA) Unknown Completed [facility] TDAP Unknown Completed [facility] Influenza Virus Vaccine Quad .5 mL IM 6+ MO (FLUZONE/FLULAVAL/F LUARIX) Unknown Completed [facility] SARS-COV-2 COVID-19 VACCINE - (MODERNA) Unknown Completed [facility] TDAP Unknown Completed [facility] Influenza Virus Vaccine Quad .5 mL IM 6+ MO (FLUZONE/FLULAVAL/F LUARIX) Unknown Completed [facility] SARS-COV-2 COVID-19 VACCINE - (MODERNA) Unknown Completed [facility] TDAP Unknown Completed [facility] Influenza Virus Vaccine Quad .5 mL IM 6+ MO (FLUZONE/FLULAVAL/F LUARIX) Unknown Completed [facility] SARS-COV-2 COVID-19 VACCINE - (MODERNA) Unknown Completed [facility] TDAP Unknown Completed [facility] Influenza Virus Vaccine Quad .5 mL IM 6+ MO (FLUZONE/FLULAVAL/F LUARIX) Unknown Completed [facility] SARS-COV-2 COVID-19 VACCINE - (MODERNA) Unknown Completed [facility] Vital Signs Vital Name Observation Time Observation Value Comments S ource Systolic blood pressure 2024-06-12 16:59:00 118 mm[Hg] [facility] Diastolic blood pressure 2024-06-12 16:59:00 62 mm[Hg] [facility] Heart rate 2024-06-12 16:59:00 51 /min [facility] Body temperature 2024-06-12 16:59:00 36.06 Verna [facility] Respiratory rate 2024-06-12 16:59:00 16 /min [facility] Oxygen saturation in Arterial blood by Pulse oximetry 2024-06-12 16:59:00 96 /min [facility] Body height 2024-06-12 06:00:00 167.6 cm [facility] Body weight 2024-06-12 06:00:00 94.802 kg [facility] BMI 2024-06-12 06:00:00 33.73 kg/m2 [facility] Systolic blood pressure 2024-05-26 10:40:00 120 mm[Hg] [facility] Diastolic blood pressure 2024-05-26 10:40:00 59 mm[Hg] [facility] Heart rate 2024-05-26 10:40:00 58 /min [facility] Respiratory rate 2024-05-26 10:40:00 19 /min [facility] Oxygen saturation in Arterial blood by Pulse oximetry 2024-05-26 10:40:00 98 /min [facility] Body height 2024-05-26 07:02:00 167.6 cm [facility] Body weight 2024-05-26 07:02:00 94.802 kg [facility] BMI 2024-05-26 07:02:00 33.73 kg/m2 [facility] Systolic blood pressure 2024-05-26 10:40:00 120 mm[Hg] [facility] Diastolic blood pressure 2024-05-26 10:40:00 59 mm[Hg] [facility] Heart rate 2024-05-26 10:40:00 58 /min [facility] Respiratory rate 2024-05-26 10:40:00 19 /min [facility] Oxygen saturation in Arterial blood by Pulse oximetry 2024-05-26 10:40:00 98 /min [facility] Body height 2024-05-26 07:02:00 167.6 cm [facility] Body weight 2024-05-26 07:02:00 94.802 kg [facility] BMI 2024-05-26 07:02:00 33.73 kg/m2 [facility] BMI (Body Mass Index) 2024-04-03 00:00:00 34.2 [...] 2024-01-23 00:00:00 66 [in_i] [facility] height 2023-12-10 11:00:00 66 [in_i] [facility] weight-kg 2023-12-10 11:00:00 100.24 kg [facility] bmi 2023-12-10 11:00:00 35.67 kg/m2 [facility] respiratory rate 2023-12-10 11:00:00 16 /min [facility] heart rate 2023-12-10 11:00:00 96 /min [facility] blood pressure systolic 2023-12-10 11:00:00 181 mm[Hg] [facility] blood pressure diastolic 2023-12-10 11:00:00 89 mm[Hg] [facility] heart rate 2023-11-27 15:30:00 85 /min [facility] blood pressure systolic 2023-11-27 15:30:00 164 mm[Hg] [facility] blood pressure diastolic 2023-11-27 15:30:00 87 mm[Hg] [facility] height 2023-11-27 15:30:00 66 [in_i] [facility] weight-kg 2023-11-27 15:30:00 97.52 kg [facility] bmi 2023-11-27 15:30:00 34.7 kg/m2 [facility] temperature 2023-11-27 15:30:00 97.6 [degF] [facility] respiratory rate 2023-11-27 15:30:00 16 /min [facility] Systolic blood pressure 2023-07-26 14:17:00 177 mm[Hg] [facility] Diastolic blood pressure 2023-07-26 14:17:00 92 mm[Hg] [facility] Heart rate 2023-07-26 14:17:00 97 /min [facility] Body temperature 2023-07-26 14:17:00 36.39 Verna [facility] Respiratory rate 2023-07-26 14:17:00 18 /min [facility] Body height 2023-07-26 14:17:00 167.6 cm [facility] Body weight 2023-07-26 14:17:00 100.472 kg [facility] BMI 2023-07-26 14:17:00 35.75 kg/m2 [facility] Oxygen saturation in Arterial blood by Pulse oximetry 2023-07-26 14:17:00 97 /min [facility] Systolic blood pressure 2023-06-08 07:00:00 112 mm[Hg] [facility] Diastolic blood pressure 2023-06-08 07:00:00 62 mm[Hg] [facility] Heart rate 2023-06-08 07:00:00 72 /min [facility] Respiratory rate 2023-06-08 07:00:00 20 /min [facility] Oxygen saturation in Arterial blood by Pulse oximetry 2023-06-08 07:00:00 97 /min [facility] Body weight 2023-06-08 02:41:00 108.863 kg [facility] BMI 2023-06-08 02:41:00 38.74 kg/m2 [facility] Body temperature 2023-06-08 02:38:00 36.67 Verna [facility] Body height 2023-06-08 02:34:00 167.6 cm [facility] Systolic blood pressure 2023-02-15 15:53:00 132 mm[Hg] [facility] Diastolic blood pressure 2023-02-15 15:53:00 73 mm[Hg] [facility] Heart rate 2023-02-15 15:53:00 74 /min [facility] Body temperature 2023-02-15 15:53:00 36.44 Verna [facility] Respiratory rate 2023-02-15 15:53:00 16 /min [facility] Body height 2023-02-15 15:53:00 167.6 cm [facility] Body weight 2023-02-15 15:53:00 100.336 kg [facility] BMI 2023-02-15 15:53:00 35.70 kg/m2 [facility] Oxygen saturation in Arterial blood by Pulse oximetry 2023-02-15 15:53:00 100 /min [facility] Systolic blood pressure 2022-11-13 14:08:00 117 mm[Hg] [facility] Diastolic blood pressure 2022-11-13 14:08:00 70 mm[Hg] [facility] Heart rate 2022-11-13 14:08:00 64 /min [facility] Respiratory rate 2022-11-13 14:08:00 12 /min [facility] Oxygen saturation in Arterial blood by Pulse oximetry 2022-11-13 14:08:00 99 /min [facility] Body temperature 2022-11-13 13:38:00 36.39 Verna [facility] Body height 2022-11-13 12:15:00 167.6 cm [facility] Body weight 2022-11-13 12:15:00 95.21 kg [facility] BMI 2022-11-13 12:15:00 33.88 kg/m2 [facility] Systolic blood pressure 2022-11-13 12:15:00 142 mm[Hg] [facility] Diastolic blood pressure 2022-11-13 12:15:00 66 mm[Hg] [facility] Heart rate 2022-11-13 12:15:00 77 /min [facility] Body temperature 2022-11-13 12:15:00 36 Verna [facility] Respiratory rate 2022-11-13 12:15:00 21 /min [facility] Body height 2022-11-13 12:15:00 167.6 cm [facility] Body weight 2022-11-13 12:15:00 95.21 kg [facility] BMI 2022-11-13 12:15:00 33.88 kg/m2 [facility] Oxygen saturation in Arterial blood by Pulse oximetry 2022-11-13 12:15:00 95 /min [facility] Systolic blood pressure 2022-11-03 15:35:00 154 mm[Hg] [facility] Diastolic blood pressure 2022-11-03 15:35:00 86 mm[Hg] [facility] Heart rate 2022-11-03 15:35:00 86 /min [facility] Body temperature 2022-11-03 15:35:00 37 Verna [facility] Respiratory rate 2022-11-03 15:35:00 18 /min [facility] Body height 2022-11-03 15:35:00 167.6 cm [facility] Body weight 2022-11-03 15:35:00 97.523 kg [facility] BMI 2022-11-03 15:35:00 34.70 kg/m2 [facility] Oxygen saturation in Arterial blood by Pulse oximetry 2022-11-03 15:35:00 99 /min [facility] Systolic blood pressure 2022-10-19 12:35:00 159 mm[Hg] Provider Notified [facility] Diastolic blood pressure 2022-10-19 12:35:00 85 mm[Hg] Provider Notified [facility] Heart rate 2022-10-19 12:35:00 94 /min [facility] Body temperature 2022-10-19 12:33:00 36.78 Verna [facility] Respiratory rate 2022-10-19 12:33:00 16 /min [facility] Body height 2022-10-19 12:33:00 167.6 cm [facility] Body weight 2022-10-19 12:33:00 96.616 kg [facility] BMI 2022-10-19 12:33:00 34.38 kg/m2 [facility] Oxygen saturation in Arterial blood by Pulse oximetry 2022-10-19 12:33:00 98 /min [facility] BP Systolic 2024-08-07 16:09:00 131 mm[Hg] Robert Ambrose Viraj BP Diastolic 2024-08-07 16:09:00 80 mm[Hg] Robert Arnol Viraj Weight Measured 2024-08-07 16:09:00 220.40 pounds Robert F Viraj Height Measured 2024-08-07 16:09:00 66.00 inches Orbert F Viraj Body Temperature 2024-08-07 16:09:00 99.00 degrees Robert F Viraj Heart Rate 2024-08-07 16:09:00 90.00 /min Robert F Viraj Respiratory Rate 2024-08-07 16:09:00 18.00 /min Robert F Viraj BP Systolic 2024-07-30 13:55:00 122 mm[Hg] Robert F Viraj BP Diastolic 2024-07-30 13:55:00 74 mm[Hg] Robert F Viraj Weight Measured 2024-07-30 13:55:00 Robert F Viraj Height Measured 2024-07-30 13:55:00 Robert F Viraj Body Temperature 2024-07-30 13:55:00 Robert F Viraj Heart Rate 2024-07-30 13:55:00 62.00 /min Robert F Viraj Respiratory Rate 2024-07-30 13:55:00 Robert F Viraj BP Systolic 2024-07-16 13:42:00 161 mm[Hg] Robert F Viraj BP Diastolic 2024-07-16 13:42:00 83 mm[Hg] Robert F Viraj Weight Measured 2024-07-16 13:42:00 Robert F Viraj Height Measured 2024-07-16 13:42:00 Robert F Viraj Body Temperature 2024-07-16 13:42:00 98.00 degrees Robert F Viraj Heart Rate 2024-07-16 13:42:00 88.00 /min Robert F Viraj Respiratory Rate 2024-07-16 13:42:00 18.00 /min Robert F Viraj BP Systolic 2024-07-02 12:37:00 131 mm[Hg] Robert F Viraj BP Diastolic 2024-07-02 12:37:00 80 mm[Hg] Robert F Viraj Weight Measured 2024-07-02 12:37:00 218.00 pounds Robert F Viraj Height Measured 2024-07-02 12:37:00 66.00 inches Robert F Viraj Body Temperature 2024-07-02 12:37:00 97.40 degrees Robert F Viraj Heart Rate 2024-07-02 12:37:00 68.00 /min Robert Cali Respiratory Rate 2024-07-02 12:37:00 18.00 /min Robert Cali Systolic blood pressure 2024-06-12 16:59:00 118 mm[Hg] [facility] Diastolic blood pressure 2024-06-12 16:59:00 62 mm[Hg] [facility] Heart rate 2024-06-12 16:59:00 51 /min [facility] Body temperature 2024-06-12 16:59:00 36.06 Verna [facility] Respiratory rate 2024-06-12 16:59:00 16 /min [facility] Oxygen saturation in Arterial blood by Pulse oximetry 2024-06-12 16:59:00 96 /min [facility] Body height 2024-06-12 06:00:00 167.6 cm [facility] Body weight 2024-06-12 06:00:00 94.802 kg [facility] BMI 2024-06-12 06:00:00 33.73 kg/m2 [facility] BP Systolic 2024-05-14 14:00:00 121 mm[Hg] Robert Cali BP Diastolic 2024-05-14 14:00:00 75 mm[Hg] Robert Cali Weight Measured 2024-05-14 14:00:00 209.60 pounds Robert Cali Height Measured 2024-05-14 14:00:00 66.00 inches Robert Cali Body Temperature 2024-05-14 14:00:00 97.40 degrees Robert Cali Heart Rate 2024-05-14 14:00:00 72.00 /min Robert Cali Respiratory Rate 2024-05-14 14:00:00 18.00 /min Robert Cali BP Systolic 2024-04-02 09:41:00 126 mm[Hg] Robert [...] Rate 2024-01-30 13:49:00 18.00 /min Robert F Virja BP Systolic 2024-01-18 13:37:00 137 mm[Hg] Robert [...] Cali Body Temperature 2023-12-11 16:36:00 98.10 degrees Rboert Cali Heart Rate 2023-12-11 16:36:00 87.00 /min [...] Systolic blood pressure 2023-09-03 14:41:00 131 mm[Hg] [facility] Diastolic blood pressure 2023-09-03 14:41:00 73 mm[Hg] [facility] Heart rate 2023-09-03 14:41:00 93 /min [facility] Respiratory rate 2023-09-03 14:38:00 20 /min [facility] Body height 2023-09-03 14:38:00 167.6 cm [facility] Body weight 2023-09-03 14:38:00 100.2 kg [facility] BMI 2023-09-03 14:38:00 35.65 kg/m2 [facility] Systolic blood pressure 2023-07-26 14:17:00 177 mm[Hg] [facility] Diastolic blood pressure 2023-07-26 14:17:00 92 mm[Hg] [facility] Heart rate 2023-07-26 14:17:00 97 /min [facility] Body temperature 2023-07-26 14:17:00 36.39 Verna [facility] Respiratory rate 2023-07-26 14:17:00 18 /min [facility] Body height 2023-07-26 14:17:00 167.6 cm [facility] Body weight 2023-07-26 14:17:00 100.472 kg [facility] BMI 2023-07-26 14:17:00 35.75 kg/m2 [facility] Oxygen saturation in Arterial blood by Pulse oximetry 2023-07-26 14:17:00 97 /min [facility] Systolic blood pressure 2023-06-08 07:00:00 112 mm[Hg] [facility] Diastolic blood pressure 2023-06-08 07:00:00 62 mm[Hg] [facility] Heart rate 2023-06-08 07:00:00 72 /min [facility] Respiratory rate 2023-06-08 07:00:00 20 /min [facility] Oxygen saturation in Arterial blood by Pulse oximetry 2023-06-08 07:00:00 97 /min [facility] Body weight 2023-06-08 02:41:00 108.863 kg [facility] BMI 2023-06-08 02:41:00 38.74 kg/m2 [facility] Body temperature 2023-06-08 02:38:00 36.67 Verna [facility] Body height 2023-06-08 02:34:00 167.6 cm [facility] BP Systolic 2023-05-22 08:18:00 134 mm[Hg] Robert Cali BP Diastolic 2023-05-22 08:18:00 65 mm[Hg] Robert Cali Weight Measured 2023-05-22 08:18:00 219.00 pounds Robert Cali Height Measured 2023-05-22 08:18:00 66.00 inches Robert Cali Body Temperature 2023-05-22 08:18:00 97.50 degrees Roberteliz Cali Heart Rate 2023-05-22 08:18:00 83.00 /min Robert Arnol Cali Respiratory Rate 2023-05-22 08:18:00 19.00 /min Robert Cali Systolic blood pressure 2023-02-15 15:53:00 132 mm[Hg] [facility] Diastolic blood pressure 2023-02-15 15:53:00 73 mm[Hg] [facility] Heart rate 2023-02-15 15:53:00 74 /min [facility] Body temperature 2023-02-15 15:53:00 36.44 Verna [facility] Respiratory rate 2023-02-15 15:53:00 16 /min [facility] Body height 2023-02-15 15:53:00 167.6 cm [facility] Body weight 2023-02-15 15:53:00 100.336 kg [facility] BMI 2023-02-15 15:53:00 35.70 kg/m2 [facility] Oxygen saturation in Arterial blood by Pulse oximetry 2023-02-15 15:53:00 100 /min [facility] Systolic blood pressure 2023-01-22 15:03:00 144 mm[Hg] [facility] Diastolic blood pressure 2023-01-22 15:03:00 83 mm[Hg] [facility] Heart rate 2023-01-22 15:03:00 97 /min [facility] Respiratory rate 2023-01-22 15:00:00 18 /min [facility] Body height 2023-01-22 15:00:00 167.6 cm [facility] Body weight 2023-01-22 15:00:00 95.2 kg [facility] BMI 2023-01-22 15:00:00 33.88 kg/m2 [facility] BP Systolic 2022-12-20 09:52:00 109 mm[Hg] Robert Cali BP Diastolic 2022-12-20 09:52:00 59 mm[Hg] Robert Cali Weight Measured 2022-12-20 09:52:00 217.00 pounds Robert Cali Height Measured 2022-12-20 09:52:00 66.00 inches Robert Cali Body Temperature 2022-12-20 09:52:00 98.40 degrees Robert Cali Heart Rate 2022-12-20 09:52:00 66.00 /min Robert Cali Respiratory Rate 2022-12-20 09:52:00 Robert Cali Systolic blood pressure 2022-11-13 14:08:00 117 mm[Hg] [facility] Diastolic blood pressure 2022-11-13 14:08:00 70 mm[Hg] [facility] Heart rate 2022-11-13 14:08:00 64 /min [facility] Respiratory rate 2022-11-13 14:08:00 12 /min [facility] Oxygen saturation in Arterial blood by Pulse oximetry 2022-11-13 14:08:00 99 /min [facility] Body temperature 2022-11-13 13:38:00 36.39 Verna [facility] Body height 2022-11-13 12:15:00 167.6 cm [facility] Body weight 2022-11-13 12:15:00 95.21 kg [facility] BMI 2022-11-13 12:15:00 33.88 kg/m2 [facility] Systolic blood pressure 2022-11-03 15:35:00 154 mm[Hg] [facility] Diastolic blood pressure 2022-11-03 15:35:00 86 mm[Hg] [facility] Heart rate 2022-11-03 15:35:00 86 /min [facility] Body temperature 2022-11-03 15:35:00 37 Verna [facility] Respiratory rate 2022-11-03 15:35:00 18 /min [facility] Body height 2022-11-03 15:35:00 167.6 cm [facility] Body weight 2022-11-03 15:35:00 97.523 kg [facility] BMI 2022-11-03 15:35:00 34.70 kg/m2 [facility] Oxygen saturation in Arterial blood by Pulse oximetry 2022-11-03 15:35:00 99 /min [facility] BP Systolic 2022-10-12 10:06:00 140 mm[Hg] Robert Cali BP Diastolic 2022-10-12 10:06:00 78 mm[Hg] Robert Cali Weight Measured 2022-10-12 10:06:00 212.20 pounds Robert Cali Height Measured 2022-10-12 10:06:00 66.00 inches Robert Cali Body Temperature 2022-10-12 10:06:00 97.40 degrees Robert Cali Heart Rate 2022-10-12 10:06:00 93.00 /min Roberteliz Cali Respiratory Rate 2022-10-12 10:06:00 Robert Cali Systolic blood pressure 2022-10-04 14:26:00 149 mm[Hg] [facility] Diastolic blood pressure 2022-10-04 14:26:00 76 mm[Hg] [facility] Heart rate 2022-10-04 14:26:00 78 /min [facility] Respiratory rate 2022-10-04 14:21:00 18 /min [facility] Body height 2022-10-04 14:21:00 167.6 cm [facility] Body weight 2022-10-04 14:21:00 96.843 kg [facility] BMI 2022-10-04 14:21:00 34.46 kg/m2 [facility] Systolic blood pressure 2022-07-26 13:22:00 135 mm[Hg] [facility] Diastolic blood pressure 2022-07-26 13:22:00 78 mm[Hg] [facility] Heart rate 2022-07-26 13:22:00 85 /min [facility] Respiratory rate 2022-07-26 13:22:00 18 /min [facility] Body height 2022-07-26 13:22:00 167.6 cm [facility] Body weight 2022-07-26 13:22:00 97.523 kg [facility] BMI 2022-07-26 13:22:00 34.70 kg/m2 [facility] Weight Measured 2022-06-27 13:54:00 217.80 pounds Robert Cali Height Measured 2022-06-27 13:54:00 66.00 inches Robert Cali Body Temperature 2022-06-27 13:54:00 97.80 degrees Robert Cali Heart Rate 2022-06-27 13:54:00 90.00 /min Robert Cali Respiratory Rate 2022-06-27 13:54:00 Robert Cali BP Systolic 2022-06-27 13:54:00 132 mm[Hg] Robert F Viraj BP Diastolic 2022-06-27 13:54:00 77 mm[Hg] Robert F Viraj BP Systolic 2022-06-21 08:56:00 [...] Systolic blood pressure 2022-02-15 14:59:00 131 mm[Hg] [facility] Diastolic blood pressure 2022-02-15 14:59:00 70 mm[Hg] [facility] Heart rate 2022-02-15 14:59:00 81 /min [facility] Respiratory rate 2022-02-15 14:59:00 18 /min [facility] Body height 2022-02-15 14:59:00 167.6 cm [facility] Body weight 2022-02-15 14:59:00 102.967 kg [facility] BMI 2022-02-15 14:59:00 36.64 kg/m2 [facility] Respiratory rate 2022-01-11 17:11:00 18 /min [facility] Body height 2022-01-11 17:11:00 167.6 cm [facility] Body weight 2022-01-11 17:11:00 100.699 kg [facility] BMI 2022-01-11 17:11:00 35.83 kg/m2 [facility] Systolic blood pressure 2021-08-24 14:24:00 133 mm[Hg] [facility] Diastolic blood pressure 2021-08-24 14:24:00 73 mm[Hg] [facility] Heart rate 2021-08-24 14:24:00 69 /min [facility] Respiratory rate 2021-08-24 14:24:00 18 /min [facility] Body height 2021-08-24 14:24:00 167.6 cm [facility] Body weight 2021-08-24 14:24:00 100.245 kg [facility] BMI 2021-08-24 14:24:00 35.67 kg/m2 [facility] Oxygen saturation in Arterial blood by Pulse oximetry 2021-06-07 15:30:00 96 /min [facility] Body temperature 2021-06-07 14:20:30 37.44 Verna [facility] BP Systolic 2020-07-14 23:18:00 Robert Cali BP Diastolic 2020-07-14 23:18:00 Robert Cali Weight Measured 2020-07-14 23:18:00 Robert Cali Height Measured 2020-07-14 23:18:00 Robert Cali Body Temperature 2020-07-14 23:18:00 Robert Cali Heart Rate 2020-07-14 23:18:00 Robert Cali Respiratory Rate 2020-07-14 23:18:00 Robert Cali Procedures Procedure Date / Time Performed Performing Clinician Source US abdomen limited 2024-06-17 00:00:00 [facility] URINE DRUG (IMMUNOASSAY) - COMPREHENSIVE DRUG SCREEN 2024-06-12 14:17:00 Padgett, [facility] URINALYSIS 2024-06-12 14:17:00 Padgett, [facility] URINALYSIS 2024-06-12 14:17:00 Padgett, [facility] URINE DRUG (IMMUNOASSAY) - COMPREHENSIVE DRUG SCREEN 2024-06-12 14:17:00 Padgett [facility] HB ECG ROUTINE & RHYTHM STRIP 2024-06-12 08:06:05 Padgett, [facility] PHOSPHORUS 2024-06-12 07:27:00 Padgett, [facility] URIC ACID 2024-06-12 07:27:00 Padgett, [facility] LIPASE 2024-06-12 07:27:00 Padgett, [facility] TROPONIN I 2024-06-12 07:27:00 Padgett, [facility] THYROID STIMULATING HORMONE 2024-06-12 07:27:00 Padgett, [facility] HEPATIC FUNCTION PANEL (8007 6) (ALB,T.PRO,BILI T,BU/BC,ALT,AST,ALK PHOS) 2024-06-12 07:27:00 Padgett, [facility] BASIC METABOLIC PANEL (NA, K , CL, CO2, GLUCOSE, BUN, CREATININE, CA) 2024-06-12 07:27:00 Padgett, [facility] CBC WITH DIFF 2024-06-12 07:27:00 Padgett, [facility] GLYCOSYLATED HEMOGLOBIN (A1C) 2024-06-12 07:27:00 Padgett, [facility] PROTHROMBIN TIME / INR 2024-06-12 07:27:00 Padgett, [facility] ACTIVATED PARTIAL THRMPLAS CIPRIANO 1 07:27:00 Padgett, [facility] N-TERMINAL PRO-BNP 2024-06-12 07:27:00 Padgett, [facility] CBC WITH DIFF 2024-06-12 07:27:00 Padgett, [facility] BASIC METABOLIC PANEL (NA, K , CL, CO2, GLUCOSE, BUN, CREATININE, CA) 2024-06-12 07:27:00 Padgett, [facility] HEPATIC FUNCTION PANEL (8007 6) (ALB,T.PRO,BILI T,BU/BC,ALT,AST,ALK PHOS) 2024-06-12 07:27:00 Padgett, [facility] PHOSPHORUS 2024-06-12 07:27:00 Padgett, [facility] ACTIVATED PARTIAL THRMPLAS CIPRIANO 1 07:27:00 Padgett, [facility] TROPONIN I 2024-06-12 07:27:00 Padgett, [facility] PROTHROMBIN TIME / INR 2024-06-12 07:27:00 Padgett, [facility] GLYCOSYLATED HEMOGLOBIN (A1C) 2024-06-12 07:27:00 Padgett, [facility] THYROID STIMULATING HORMONE 2024-06-12 07:27:00 Padgett, [facility] N-TERMINAL PRO-BNP 2024-06-12 07:27:00 Padgett, [facility] LIPASE 2024-06-12 07:27:00 Padgett, [facility] URIC ACID 2024-06-12 07:27:00 Kath Padgett [facility] BASIC METABOLIC PANEL 2024-05-26 06:45:00 Tristian Antony [facility] LIPID PANEL W/CALCULATED LDL 2024-05-26 06:45:00 Antony Lubin [facility] COMPLETE BLOOD COUNT W/DIFF AND PLATELET 2024-05-26 06:45:00 Antony Lubin [facility] PT AND PTT 2024-05-26 06:45:00 Antony Lubin [facility] COMPLETE BLOOD COUNT 2024-05-26 06:45:00 Tristian [facility] AUTOMATED DIFFERENTIAL 2024-05-26 06:45:00 Tristian [facility] BETA HCG QUALITATIVE URINE 2024-05-26 06:44:00 Antony Lubin [facility] Site Care 2024-05-26 00:00:00 [facility] Cardiac catheterization 2024-05-23 00:00:00 [facility] Hysteroscopy Ablation 2024-03-07 00:00:00 [facility] US TRANSVAGINAL 2024-02-08 00:00:00 [facility] MAMMO, screening, digital, bilateral 2024-01-23 00:00:00 [facility] URINALYSIS 2023-06-08 03:45:00 Rhiannon Hickman [facility] URINE DRUG (IMMUNOASSAY) - COMPREHENSIVE DRUG SCREEN W/O REFLEX 2023-06-08 03:45:00 Marysol Pabon [facility] URINALYSIS 2023-06-08 03:45:00 Rhiannon Hickman [facility] URINE DRUG (IMMUNOASSAY) - COMPREHENSIVE DRUG SCREEN W/O REFLEX 2023-06-08 03:45:00 Marysol Pabon [facility] CT STROKE ANGIOGRAM HEAD 2023-06-08 02:56:58 Rhiannon Hickman [facility] CT STROKE ANGIOGRAM NECK 2023-06-08 02:56:58 Rhiannon Hickman [facility] HB ECG ROUTINE & RHYTHM STRIP 2023-06-08 02:53:51 Rhiannon Hickman [facility] CT STROKE HEAD WO CONTRAST 2023-06-08 02:48:28 Rhiannon Hickman [facility] TROPONIN I 2023-06-08 02:45:00 Rhiannon Hickman [facility] BASIC METABOLIC PANEL (NA, K , CL, CO2, GLUCOSE, BUN, CREATININE, CA) 2023-06-08 02:45:00 Rhiannon Hickman [facility] LITHIUM 2023-06-08 02:45:00 Marysol Pabon [facility] ETHANOL 2023-06-08 02:45:00 PepperMarysol walters [facility] CBC WITHOUT DIFF 2023-06-08 02:45:00 Rhiannon Hickman [facility] PROTHROMBIN TIME / INR 2023-06-08 02:45:00 Rhiannon Hickman [facility] ACTIVATED PARTIAL THRMPLAS CIPRIANO 2023-05-15 6 02:45:00 Rhiannon Hickman [facility] EXTRA TUBE LAV 2023-06-08 02:45:00 PepperMarysol walters [facility] PROTHROMBIN TIME / INR 2023-06-08 02:45:00 Rhiannon Hickman [facility] ACTIVATED PARTIAL THRMPLAS CIPRIANO 2023-05-15 6 02:45:00 Rhiannon Hickman [facility] CBC WITHOUT DIFF 2023-06-08 02:45:00 Rhiannon Hickman [facility] TROPONIN I 2023-06-08 02:45:00 Rhiannon Hickman [facility] BASIC METABOLIC PANEL (NA, K , CL, CO2, GLUCOSE, BUN, CREATININE, CA) 2023-06-08 02:45:00 Rhiannon Hickman [facility] ETHANOL 2023-06-08 02:45:00 PepperMarysol walters [facility] LITHIUM 2023-06-08 02:45:00 PepperMarysol walters [facility] EXTRA TUBE LAV 2023-06-08 02:45:00 Marysol Pabon [facility] POCT GLUCOSE(AGE >30DAYS) 2023-06-08 02:39:00 Rhiannon Hickman [facility] POCT GLUCOSE(AGE >30DAYS) 2023-06-08 02:39:00 Rhiannon Hickman [facility] IRON PANEL 2023-02-15 16:30:00 Elidia Corderoraven [facility] FERRITIN SERUM 2023-02-15 16:30:00 Consuelo Leopoldokarl Mavis [facility] LITHIUM 2023-01-22 16:35:00 Rosalind Freed [facility] CONSENT/REFUSAL FOR DIAGNOSI S AND TREATMENT 2023-01-22 14:56:09 Doctor Unassigned, [place] [facility] CONSENT/REFUSAL FOR DIAGNOSI S AND TREATMENT 2023-01-22 14:56:09 Doctor Unassigned, [place] [facility] SURGICAL PATHOLOGY EXAM 2022-11-13 13:05:00 Bossman [facility] ESOPHAGOGASTRODUODENOSCOPY 2022-11-13 12:47:00 Bossman [facility] COLONOSCOPY 2022-11-13 12:47:00 Bossman [facility] ESOPHAGOGASTRODUODENOSCOPY 2022-11-13 12:47:00 Bossman [facility] COLONOSCOPY 2022-11-13 12:47:00 Bossman [facility] COLONOSCOPY (ENDO) 2022-11-13 12:28:53 Jewel [facility] COLONOSCOPY (ENDO) 2022-11-13 12:28:53 Jewel [facility] COLONOSCOPY (ENDO) 2022-11-13 12:28:53 [facility] EGD (ENDO) 2022-11-13 12:19:29 Jae Holloway [facility] EGD (ENDO) 2022-11-13 12:19:29 [facility]el [facility] EGD (ENDO) 2022-11-13 12:19:29 Jewel [facility] CONSENT/REFUSAL FOR DIAGNOSI S AND TREATMENT 2022-11-13 12:17:09 Doctor Unassigned, [place] [facility] CONSENT/REFUSAL FOR DIAGNOSI S AND TREATMENT 2022-11-13 12:17:09 Doctor Unassigned, [place] [facility] ASSIGNMENT OF BENEFITS 2022-11-13 11:59:03 Doctor Unassigned, [place] [facility] ASSIGNMENT OF BENEFITS 2022-11-13 11:59:03 Doctor Unassigned, [place] [facility] ENDOSCOPY PROCEDURE DOCUMENTATION 2022-02 0 05:01:00 Doctor Unassigned, [place] [facility] ENDOSCOPY PROCEDURE DOCUMENTATION 2022-02 002 05:01:00 Doctor Unassigned, [place] [facility] COMP. METABOLIC PANEL (72700) 2022-11-03 16:24:00 Dora Newman [facility] CBC WITH DIFF 2022-11-03 16:24:00 Dora Newman [facility] POCT TEST 2022-11-03 16:24:00 Dora Newman [facility] CBC WITH DIFF 2022-11-03 16:24:00 Dora Newman [facility] POCT TEST 2022-11-03 16:24:00 Dora Newman [facility] COMP. METABOLIC PANEL ([id number]) 2022-11-03 16:24:00 Dora Newman [facility] URINALYSIS 2022-11-03 16:18:00 Dora Newman [facility] URINALYSIS 2022-11-03 16:18:00 Dora Newman [facility] RAPID STREP SCREEN FOR GROUP A 2022-10-14 2 16:14:00 Dora Newman [facility] RAPID STREP SCREEN FOR GROUP A 2022-10-14 2 16:14:00 Dora Newman [facility] THROAT CULTURE 2022-11-03 16:14:00 Dora Newman [facility] CONSENT/REFUSAL FOR DIAGNOSI S AND TREATMENT 2022-11-03 15:27:05 Doctor Unassigned, [place] [facility] CONSENT/REFUSAL FOR DIAGNOSI S AND TREATMENT 2022-11-03 15:27:05 Doctor Unassigned, [place] [facility] EMERGENCY SERVICES AGREEMENT S AND AUTHORIZATIONS 2022-11-03 05:01:00 Doctor Unassigned, [place] [facility] HELICOBACTER PYLORI ANTIGEN, FECAL BY EIA 2022-10-19 13:44:00 Muftah, Abdullah Azzam [facility] HELICOBACTER PYLORI ANTIGEN, FECAL BY EIA 2022-10-19 13:44:00 Elidia Cordero [facility] FERRITIN SERUM 2022-10-19 13:35:00 Elidia Cordero [facility] IRON PANEL 2022-10-19 13:35:00 Elidia Cordero [facility] CELIAC SCREEN 2022-10-19 13:35:00 Elidia Cordero [facility] LAB ONLY CELIAC SCREEN IGA 2022-10-19 13:35:00 Elidia Cordero [facility] IRON PANEL 2022-10-19 13:35:00 Elidia Cordero [facility] CELIAC SCREEN 2022-10-19 13:35:00 Elidia Cordero [facility] FERRITIN SERUM 2022-10-19 13:35:00 Elidia Cordero [facility] LAB ONLY CELIAC SCREEN IGA 2022-10-19 13:35:00 Elidia Cordero [facility] DISCLOSURE AND CONSENT, [facility] JAVAD AND SURGICAL PROCEDURES 2022-10-19 05:01:00 Doctor Unassigned, [place] [facility] DISCLOSURE AND CONSENT, [facility] JAVAD AND SURGICAL PROCEDURES 2022-10-19 05:01:00 Doctor Unassigned, [place] [facility] REFERRAL- REQUEST/RESPONSE 2022-10-12 05:01:00 Doctor Unassigned, [place] [facility] REFERRAL- REQUEST/RESPONSE 2022-10-12 05:01:00 Doctor Unassigned, [place] [facility] THYROID STIMULATING HORMONE 2022-10-05 15:15:00 Rosalind Freed [facility] COMP. METABOLIC PANEL ([id number]) 2022-10-05 15:15:00 Rosalind Freed [facility] LIPID PANEL ([id number])(TOTAL CHOLESTEROL, TRIGLYCERIDES, HDL) 2022-10-05 15:15:00 Rosalind Freed [facility] LITHIUM 2022-10-05 15:15:00 Sara Hester [facility] CBC WITH DIFF 2022-10-05 15:15:00 Abdiaziz [facility] GLYCOSYLATED HEMOGLOBIN (A1C) 2022-10-05 15:15:00 Abdiaziz [facility] CBC WITH DIFF 2022-10-05 15:15:00 Abdiaziz [facility] COMP. METABOLIC PANEL ([id number]) 2022-10-05 15:15:00 Abdiaziz [facility] GLYCOSYLATED HEMOGLOBIN (A1C) 2022-10-05 15:15:00 Abdiaziz [facility] LIPID PANEL ([id number])(TOTAL CHOLESTEROL, TRIGLYCERIDES, HDL) 2022-10-05 15:15:00 Abdiaziz [facility] THYROID STIMULATING HORMONE 2022-10-05 15:15:00 Abdiaziz [facility] LITHIUM 2022-10-05 15:15:00 Sara Hester [facility] ASSIGNMENT OF BENEFITS 2022-10-04 14:17:30 Doctor Unassigned, [place] [facility] ASSIGNMENT OF BENEFITS 2022-10-04 14:17:30 Doctor Unassigned, [place] [facility] LITHIUM 2022-07-26 14:49:00 Angela Sage [facility] PATIENT FINANCIAL POLICY 2022-07-26 13:16:12 Doctor Unassigned, [place] [facility] PATIENT FINANCIAL POLICY 2022-07-26 13:16:12 Doctor Unassigned, [place] [facility] EXTERNAL PROVIDER RECORDS 2022-04-08 06:01:00 Doctor Unassigned, [place] [facility] EXTERNAL PROVIDER RECORDS 2022-04-08 06:01:00 Doctor Unassigned, [place] [facility] EXTERNAL PROVIDER RECORDS 2022-02-21 06:01:00 Doctor Unassigned, [place] [facility] EXTERNAL PROVIDER RECORDS 2022-02-21 06:01:00 Doctor Unassigned, [place] [facility] LITHIUM 2022-02-15 15:58:00 Angela Sage [facility] CONSENT/REFUSAL FOR DIAGNOSI S AND TREATMENT 2022-01-11 17:10:16 Doctor Unassigned, [place] [facility] CONSENT/REFUSAL FOR DIAGNOSI S AND TREATMENT 2022-01-11 17:10:16 Doctor Unassigned, [place] [facility] EXTERNAL PROVIDER RECORDS 2020-11-26 05:01:00 Doctor Unassigned, [place] [facility] Tubal Ligation 1999-02-12 00:00:00 [facility] Plan of Care Planned Activity Planned Date Details Comments Source Encounters Start Date/Time End Date/Time Encounter Type Admission Type Attending [facility] Facility Care Department Encounter ID Source 2024-04-15 13:23:01 Outpatient Jae Holloway [facility] [id number] [facility] 2024-02-21 16:09:00 Outpatient Jae Holloway [facility] [id number] [facility] 2024-02-15 10:03:00 Outpatient Jae Holloway [facility] [id number] [facility] 2023-12-14 15:51:00 Outpatient Jae Holloway [facility] [id number] [facility] 2023-11-27 15:05:01 Outpatient Jae Holloway [facility] [id number] [facility] 2020-12-13 10:09:54 Emergency [facility] [id number] [facility] 2020-12-11 04:02:45 Emergency [facility] [id number] [facility] 2024-10-07 10:01:54 2024-10-07 10:01:54 Outpatient [facility] [id number] Robert Arnol Viraj 2024-08-29 00:00:00 2024-09-01 08:33:09 Telephone Elidia Cordero [id number] [facility] 2024-08-25 08:24:26 2024-08-25 08:24:26 Outpatient [id number] [id number] Robert Cali 2024-08-07 16:01:52 2024-08-07 16:01:52 Outpatient [facility] [id number] Robert Ambrose Viraj 2024-08-07 00:00:00 2024-08-07 00:00:00 Outpatient Visit [facility] [id number] Robert Cali 2024-07-30 13:32:21 2024-07-30 13:32:21 Outpatient SFA [facility] [id number] Robert Ambrose Viraj 2024-07-16 16:05:14 2024-07-16 16:05:14 Outpatient S[facility] [id number] Robert Ambrose Viraj 2024-07-02 12:34:19 2024-07-02 12:34:19 Outpatient [facility] [id number] Robert Ambrose Carlyle 2024-06-17 15:20:19 2024-06-17 23:59:00 Hospital Encounter 1, [facility] 1.2.840.114 350.1.13.70 8.2.7.2.686 [id number] [facility] 2024-06-17 15:20:19 2024-06-17 23:59:00 Outpatient Elective MHEPL MHEPL [id number] [facility] 2024-06-13 00:00:00 2024-06-13 11:37:18 Transition of Care Becky Bender 1.2.840.1 92404.1.1 3.104.2.7 .3.752952 .8 [id number] [facility] 2024-06-12 01:25:00 2024-06-12 15:00:00 Outpatient U EMMANUELLE GUTIERREZ KIAN [facility] [id number] [facility] 2024-06-12 01:25:00 2024-06-12 15:00:00 Hospital Encounter Ted Broussard, Emmanuelle Garcia 1.2.840.1 01459.1.1 3.104.2.7 .3.620046 .8 [id number] [facility] 2024-06-12 00:00:00 2024-06-12 00:00:00 Travel 1.2.840.1 83019.1.1 3.104.2.7 .3.352524 .8 1.2.840.114 350.1.13.10 4.2.7.3.698 084.8 [id number] [facility] 2024-05-26 05:52:00 2024-05-26 10:45:00 Outpatient Elective LORA CULVER ESE ESE [id number] [facility] 2024-05-26 05:52:00 2024-05-26 10:45:00 Hospital Encounter Lora Culver [facility] 1.2.840.114 350.1.13.70 8.2.7.2.686 [id number] [facility] 2024-05-26 08:45:00 2024-05-26 08:45:00 Outpatient R [facility] [id number] [facility] 2024-05-14 13:51:00 2024-05-14 13:51:00 Outpatient SFA SFA [id number] Robert Arnol Viraj 2024-05-13 15:00:06 2024-05-13 15:00:06 Outpatient SFA SFA [id number] Robert Cali 2024-05-08 13:43:38 2024-05-08 13:43:38 Outpatient SFA SFA [id number] Robert Arnol Viraj 2024-04-15 00:00:00 2024-04-15 00:00:00 (TEL) CLS CLS [id number] [facility] 2024-04-10 00:00:00 2024-04-10 00:00:00 Ladi Coyle, CASH APPLICATIONS CLERK: [address], [place] [address] , Ph. [facility] - GC_GCBZW_Gi [facility]* [id number] [facility] 2024-04-07 08:45:00 2024-04-07 08:45:00 Outpatient R DAVIDSON SUTHERLAND [facility] [id number] [facility] 2024-04-03 00:00:00 2024-04-03 00:00:00 Travel 1.2.840.1 61459.1.1 3.104.2.7 .3.285044 .8 1.2.840.114 350.1.13.10 4.2.7.3.698 084.8 [id number] [facility] 2024-04-03 00:00:00 2024-04-03 00:00:00 Ladi Coyle, CASH APPLICATIONS CLERK: [address] [place] [address], [place] [address] , Ph. [facility] - GC_GCBZW_La [facility]* [id number] [facility] 2024-04-02 00:00:00 2024-04-02 00:00:00 Outpatient Visit SFA [id number] Robert F Viraj 2024-03-24 08:59:35 2024-03-24 08:59:35 Outpatient SFA SFA [id number] Robert F Viraj 2024-03-24 00:00:00 2024-03-24 00:00:00 (EEG) EEG CLS CLS [id number] [facility] 2024-03-19 09:33:08 2024-03-19 09:33:08 Outpatient SFA SFA [id number] Robert Arnol Viraj 2024-03-19 00:00:00 2024-03-19 00:00:00 Outpatient Visit SFA [id number] Robert F Viraj 2024-03-11 09:00:00 2024-03-11 09:00:00 Outpatient R [facility] [id number] [facility] 2024-03-07 00:00:00 2024-03-07 00:00:00 Talisha Chan MD: [address], [place] [address] , Ph. [facility] - GC_GCBZW_Nd tariq [place]* [id number] [facility] 2024-03-06 00:00:00 2024-03-06 00:00:00 (TEL) CLS CLS [id number] [facility] 2024-02-22 00:00:00 2024-02-22 00:00:00 (TEL) [facility]LS [facility] [id number] [facility] 2024-02-20 00:00:00 2024-02-20 00:00:00 MARC Arteaga: [address], [place] [address] , Ph. [facility] - GC_GCBZW_[facility]* [id number] [facility] 2024-02-08 00:00:00 2024-02-08 00:00:00 Talisha Chan MD: [address], [place] [address] , Ph. [facility] GC_GCBZW_[facility]* [id number] [facility] 2024-01-30 14:39:39 2024-01-30 14:39:39 Outpatient SFA [facility] [id number] Robert Ambrose Viraj 2024-01-30 00:00:00 2024-01-30 00:00:00 Outpatient Visit SFA [id number] Robert Arnol Viraj 2024-01-28 13:45:00 2024-01-28 13:45:00 Outpatient R [facility] [id number] [facility] 2024-01-25 00:00:00 2024-01-25 00:00:00 Travel 1.2.840.1 35371.1.1 3.104.2.7 .3.944873 .8 1.2.840.114 350.1.13.10 4.2.7.3.698 084.8 [id number] [facility] 2024-01-24 00:00:00 2024-01-24 00:00:00 Talisha Chan MD: [address], [place] [address] , Ph. [facility] - GC_GCBZW_La tariq [place]* [id number] [facility] 2024-01-23 00:00:00 2024-01-23 00:00:00 Talisha Chan MD: [address], [place] [id number] , Ph. [facility] GC_GCBZW_[facility]* [id number] [facility] 2024-01-22 09:30:00 2024-01-22 09:30:00 Outpatient R [facility] [id number] [facility] 2024-01-22 00:00:00 2024-01-22 00:00:00 (TEL) [facility] CLS [id number] [facility] 2024-01-18 00:00:00 2024-01-18 00:00:00 Outpatient Visit [facility] [id number] Robert aCli 2024-01-13 00:00:00 2024-01-13 00:00:00 Travel 1.2.840.1 05080.1.1 3.104.2.7 .3.781882 .8 1.2.840.114 350.1.13.10 4.2.7.3.698 084.8 [id number] [facility] 2024-01-04 16:41:03 2024-01-04 16:41:03 [place] [id number] Robert Cali 2024-01-04 00:00:00 2024-01-04 00:00:00 Outpatient Visit SFA [id number] Robert Cali 2023-12-31 00:00:00 2023-12-31 00:00:00 (TEL) CLS CLS [id number] [facility] 2023-12-26 08:50:25 2023-12-26 08:50:25 Outpatient SFA SFA [id number] Robert Cali 2023-12-19 10:24:52 2023-12-19 10:24:52 Outpatient SFA SFA [id number] Robert Cali 2023-12-12 00:00:00 2023-12-12 00:00:00 (TEL) CLS CLS [id number] [facility] 2023-12-12 00:00:00 2023-12-12 00:00:00 (TEL) CLS CLS [id number] [facility] 2023-12-11 16:28:54 2023-12-11 16:28:54 Outpatient SFA SFA [id number] Robert Cali 2023-12-11 00:00:00 2023-12-11 00:00:00 Outpatient Visit SFA [id number] Robert Cali 2023-12-10 00:00:00 2023-12-10 00:00:00 Office Visit- New Pt.- Level 5 CLS CLS [id number] [facility] 2023-12-10 00:00:00 2023-12-10 00:00:00 (TEL) CLS CLS [id number] [facility] 2023-12-10 00:00:00 2023-12-10 00:00:00 (TEL) CLS CLS [id number] [facility] 2023-12-08 00:00:00 2023-12-08 00:00:00 (CLS/MRI) MRI Scan CLS CLS [id number] [facility] 2023-12-05 13:46:14 2023-12-05 13:46:14 Outpatient SFA SFA [id number] Robert Cali 2023-11-30 00:00:00 2023-11-30 00:00:00 (TEL) CLS CLS [id number] [facility] 2023-11-29 00:00:00 2023-11-29 00:00:00 (EEG) EEG CLS CLS [id number] [facility] 2023-11-29 00:00:00 2023-11-29 00:00:00 (EMG) EMG CLS CLS [id number] [facility] 2023-11-27 08:13:37 2023-11-27 08:13:37 Outpatient SFA [facility] [id number] Robret Cali 2023-11-27 00:00:00 2023-11-27 00:00:00 Office Visit- Est Pt.- Level 4 CLS CLS [id number] [facility] 2023-11-27 00:00:00 2023-11-27 00:00:00 (TEL) CLS CLS [id number] [facility] 2023-11-27 00:00:00 2023-11-27 00:00:00 Outpatient Visit SFA [id number] Robert Cali 2023-10-09 00:00:00 2023-11-10 18:22:03 Patient Secure Msg Doctor Unassigned, [place] [facility] 1.2.840.1 59930.1.1 3.104.2.7 .3.159447 .8 [id number] [facility] 2023-11-06 13:51:42 2023-11-06 13:51:42 Outpatient SFA SFA [id number] Robert Cali 2023-10-02 00:00:00 2023-11-03 18:20:51 Patient Secure Msg Doctor Unassigned, [place] [facility] 1.2.840.1 95610.1.1 3.104.2.7 .3.262766 .8 [id number] [facility] 2023-09-28 00:00:00 2023-10-02 12:14:38 Patient Secure Msg Butt, Edward 1.2.840.1 90301.1.1 3.104.2.7 .3.209168 .8 [id number] [facility] 2023-09-03 09:30:00 2023-09-03 11:20:53 Outpatient Tonya CERVANTESALESHA KATE [facility] [id number] [facility] 2023-09-03 00:00:00 2023-09-03 00:00:00 Travel 1.2.840.1 50952.1.1 3.104.2.7 .3.626344 .8 1.2.840.114 350.1.13.10 4.2.7.3.698 084.8 [id number] [facility] 2023-08-31 00:00:00 2023-08-31 00:00:00 Travel 1.2.840.1 44401.1.1 3.104.2.7 .3.389515 .8 1.2.840.114 350.1.13.10 4.2.7.3.698 084.8 [id number] [facility] 2023-08-27 08:00:00 2023-08-27 08:00:00 Outpatient ALESHA AMBRIZ [facility] [id number] [facility] 2023-08-24 00:00:00 2023-08-24 00:00:00 Travel 1.2.840.1 20845.1.1 3.104.2.7 .3.058705 .8 1.2.840.114 350.1.13.10 4.2.7.3.698 084.8 [id number] [facility] 2023-08-08 00:00:00 2023-08-08 12:08:14 Case Management Elidia Cordero 1.2.840.1 59299.1.1 3.104.2.7 .3.812118 .8 [id number] [facility] 2023-07-02 00:00:00 2023-08-04 18:20:55 Patient Secure Msg Dominic Keita 1.2.840.1 90804.1.1 3.104.2.7 .3.221917 .8 [id number] [facility] 2023-08-03 00:00:00 2023-08-03 08:18:24 Telephone Elidia Cordero 1.2.840.1 93569.1.1 3.104.2.7 .3.318223 .8 [id number] [facility] 2023-07-30 00:00:00 2023-07-30 15:44:55 Telephone Elidia Cordero 1.2.840.1 21729.1.1 3.104.2.7 .3.503995 .8 [id number] [facility] 2023-07-26 09:30:00 2023-07-26 10:00:00 Office Visit Jose Westbrook Elidia Fcoraven 1.2.840.1 68050.1.1 3.104.2.7 .3.366828 .8 [id number] [facility] 2023-07-26 09:30:00 2023-07-26 09:30:00 Outpatient JOSE TRAN [facility] [id number] [facility] 2023-07-26 00:00:00 2023-07-26 00:00:00 Travel 1.2.840.1 80127.1.1 3.104.2.7 .3.499441 .8 1.2.840.114 350.1.13.10 4.2.7.3.698 084.8 [id number] [facility] 2023-07-18 10:15:00 2023-07-18 10:15:00 Outpatient FARZANA UGALDE [facility] [id number] [facility] 2023-07-16 00:00:00 2023-07-16 00:00:00 Travel 1.2.840.1 47411.1.1 3.104.2.7 .3.840410 .8 1.2.840.114 350.1.13.10 4.2.7.3.698 084.8 [id number] [facility] 2023-07-02 00:00:00 2023-07-02 12:41:14 Telephone Elidia Cordero 1.2.840.1 02092.1.1 3.104.2.7 .3.729774 .8 [id number] [facility] 2023-06-13 00:00:00 2023-06-13 10:19:53 Letter (Out) 1.2.840.1 67404.1.1 3.104.2.7 .3.425480 .8 [id number] [facility] 2023-06-07 21:35:00 2023-06-08 02:20:00 Emergency X PEPPER, MARYSOL PABON, MARYSOL [facility] ERT [id number] [facility] 2023-06-07 21:35:00 2023-06-08 02:20:00 Emergency Marysol Pabon HickmanRhiannon T 1.2.840.1 36766.1.1 3.104.2.7 .3.350387 .8 [id number] [facility] 2023-06-07 00:00:00 2023-06-07 00:00:00 Travel 1.2.840.1 85652.1.1 3.104.2.7 .3.832910 .8 1.2.840.114 350.1.13.10 4.2.7.3.698 084.8 [id number] [facility] 2023-05-29 00:00:00 2023-06-04 10:54:35 Patient Secure Msg Dominic Keita 1.2.840.1 45498.1.1 3.104.2.7 .3.755017 .8 [id number] [facility] 2023-05-28 08:45:00 2023-05-28 08:45:00 Outpatient DAVIDSON MEYER [facility] [id number] [facility] 2023-05-25 00:00:00 2023-05-25 00:00:00 Travel 1.2.840.1 03053.1.1 3.104.2.7 .3.302661 .8 1.2.840.114 350.1.13.10 4.2.7.3.698 084.8 [id number] [facility] 2023-05-22 08:17:37 2023-05-22 08:17:37 Outpatient SAM [facility] [id number] Robert Ambrose Viraj 2023-05-11 00:00:00 2023-05-11 17:06:28 Telephone Elidia Cordero 1.2.840.1 60235.1.1 3.104.2.7 .3.890696 .8 [id number] [facility] 2023-05-09 00:00:00 2023-05-09 17:14:57 Patient Secure Msg Bessie Keitam 1.2.840.1 20153.1.1 3.104.2.7 .3.641848 .8 [id number] [facility] 2023-05-08 10:00:00 2023-05-08 10:00:00 Outpatient EMILIA WU [facility] [id number] [facility] 2023-03-28 00:00:00 2023-04-28 18:05:02 Patient Secure Msg Doctor Unassigned, [place] [facility] 1.2.840.1 30917.1.1 3.104.2.7 .3.083050 .8 [id number] [facility] 2023-04-18 08:00:00 2023-04-18 08:00:00 Outpatient R FARZANA SAUCEDA [facility] [id number] [facility] 2023-04-17 00:00:00 2023-04-17 00:00:00 Travel 1.2.840.1 76478.1.1 3.104.2.7 .3.680206 .8 1.2.840.114 350.1.13.10 4.2.7.3.698 084.8 [id number] [facility] 2023-04-11 13:00:00 2023-04-11 13:00:00 Outpatient R EMILIA SNOWDEN [facility] [id number] [facility] 2023-04-11 13:00:00 2023-04-11 13:00:00 Outpatient R EMILIA SNOWDEN [facility] [id number] [facility] 2023-04-04 08:00:00 2023-04-04 08:00:00 Outpatient R [facility] [id number] [facility] 2023-04-02 00:00:00 2023-04-02 00:00:00 Travel 1.2.840.1 89083.1.1 3.104.2.7 .3.892782 .8 1.2.840.114 350.1.13.10 4.2.7.3.698 084.8 [id number] [facility] 2023-03-09 00:00:00 2023-03-09 00:00:00 Telephone Elidia Cordero 1.2.840.1 62591.1.1 3.104.2.7 .3.358827 .8 [id number] [facility] 2023-03-08 00:00:00 2023-03-08 00:00:00 Telephone Elidia Cordero 1.2.840.1 08684.1.1 3.104.2.7 .3.745056 .8 [id number] [facility] 2023-02-28 10:15:00 2023-02-28 10:15:00 Outpatient SARA DELGADILLO KIMBERLY [facility] [id number] [facility] 2023-02-27 00:00:00 2023-02-27 00:00:00 Travel 1.2.840.1 81117.1.1 3.104.2.7 .3.517295 .8 1.2.840.114 350.1.13.10 4.2.7.3.698 084.8 [id number] [facility] 2023-02-15 10:30:00 2023-02-15 10:45:00 Extracorporeal Technician Visit Jewel Cunha [facility] 1.2.840.1 94585.1.1 3.104.2.7 .3.977827 .8 [id number] [facility] 2023-02-15 09:30:00 2023-02-15 10:00:00 [facility].840.1 39391.1.1 3.104.2.7 .3.353781 .8 [id number] [facility] 2023-02-15 09:30:00 2023-02-15 09:30:00 Outpatient JEWEL JARVIS [facility] [id number] [facility] 2023-02-15 00:00:00 2023-02-15 00:00:00 Travel 1.2.840.1 16712.1.1 3.104.2.7 .3.905237 .8 1.2.840.114 350.1.13.10 4.2.7.3.698 084.8 [id number] [facility] 2023-01-23 13:00:00 2023-01-23 13:00:00 Outpatient JENNY SESAY RIZWAN [facility] [id number] [facility] 2023-01-22 10:15:00 2023-01-22 10:30:00 Extracorporeal Technician Visit Dexter Dias [facility] 1.2.840.1 41218.1.1 3.104.2.7 .3.604432 .8 [id number] [facility] 2023-01-22 09:30:00 2023-01-22 10:07:50 Outpatient R DEXTER DIAS [facility] [id number] [facility] 2023-01-22 00:00:00 2023-01-22 00:00:00 Orders Only Doctor Unassigned, [place] [facility] 1.2.840.1 06628.1.1 3.104.2.7 .3.754761 .8 [id number] [facility] 2023-01-22 00:00:00 2023-01-22 00:00:00 Travel 1.2.840.1 66970.1.1 3.104.2.7 .3.555917 .8 1.2.840.114 350.1.13.10 4.2.7.3.698 084.8 [id number] [facility] 2023-01-15 00:00:00 2023-01-15 00:00:00 Telephone Elidia Cordero 1.2.840.1 01955.1.1 3.104.2.7 .3.023316 .8 [id number] [facility] 2023-01-12 00:00:00 2023-01-12 00:00:00 Patient Secure Msg Dominic Keita 1.2.840.1 65984.1.1 3.104.2.7 .3.715190 .8 [id number] [facility] 2022-12-29 09:30:00 2022-12-29 09:30:00 Outpatient R JENNY ARRIAGA RIZWAN [facility] [id number] [facility] 2022-12-29 00:00:00 2022-12-29 00:00:00 Telephone Elidia Cordero 1.2.840.1 25693.1.1 3.104.2.7 .3.773299 .8 [id number] [facility] 2022-12-29 00:00:00 2022-12-29 00:00:00 Telephone Elidia Cordero 1.2.840.1 40316.1.1 3.104.2.7 .3.039232 .8 [id number] [facility] 2022-12-28 00:00:00 2022-12-28 00:00:00 Case Management Elidia Cordero 1.2.840.1 43349.1.1 3.104.2.7 .3.826862 .8 [id number] [facility] 2022-12-20 16:00:00 2022-12-20 16:46:31 Outpatient R [facility] [id number] [facility] 2022-12-20 09:49:08 2022-12-20 09:49:08 Outpatient [facility] [id number] Robert Arnol Viraj 2022-12-19 00:00:00 2022-12-19 00:00:00 Travel 1.2.840.1 95172.1.1 3.104.2.7 .3.979576 .8 1.2.840.114 350.1.13.10 4.2.7.3.698 084.8 [id number] [facility] 2022-12-18 09:30:00 2022-12-18 09:30:00 Outpatient R [facility] [id number] [facility] 2022-12-18 00:00:00 2022-12-18 00:00:00 Telephone Elidia Cordero 1.2.840.1 81346.1.1 3.104.2.7 .3.147275 .8 [id number] [facility] 2022-12-14 00:00:00 2022-12-14 00:00:00 Patient Secure Msg Doctor Unassigned, [place] [facility] 1.2.840.1 54581.1.1 3.104.2.7 .3.803202 .8 [id number] [facility] 2022-12-11 08:45:00 2022-12-11 08:45:00 Outpatient R [facility] [id number] [facility] 2022-12-08 15:30:00 2022-12-08 15:30:00 Outpatient R JENNY ARRIAGA RIZWAN [facility] [id number] [facility] 2022-12-06 08:00:00 2022-12-06 08:00:00 Outpatient R ONEIDA MONTANA [facility] [id number] [facility] 2022-11-29 00:00:00 2022-11-29 00:00:00 Telephone Elidia Cordero 1.2.840.1 38154.1.1 3.104.2.7 .3.095729 .8 [id number] [facility] 2022-11-27 00:00:00 2022-11-27 00:00:00 Telephone Elidia Cordero 1.2.840.1 18833.1.1 3.104.2.7 .3.109706 .8 [id number] [facility] 2022-11-27 00:00:00 2022-11-27 00:00:00 Telephone Elidia Cordero 1.2.840.1 67925.1.1 3.104.2.7 .3.887195 .8 [id number] [facility] 2022-11-23 00:00:00 2022-11-23 00:00:00 Telephone Elidia Cordero 1.2.840.1 32196.1.1 3.104.2.7 .3.897122 .8 [id number] [facility] 2022-11-23 00:00:00 2022-11-23 00:00:00 Telephone Elidia Cordero 1.2.840.1 26994.1.1 3.104.2.7 .3.402281 .8 [id number] [facility] 2022-11-22 09:30:00 2022-11-22 09:30:00 Outpatient R [facility] [id number] [facility] 2022-11-16 00:00:00 2022-11-16 00:00:00 Telephone Elidia Cordero 1.2.840.1 47434.1.1 3.104.2.7 .3.407420 .8 [id number] [facility] 2022-11-16 00:00:00 2022-11-16 00:00:00 Patient Secure Msg OnurfidelinaDominic johnson 1.2.840.1 41114.1.1 3.104.2.7 .3.598670 .8 [id number] [facility] 2022-11-13 06:59:00 2022-11-13 09:48:00 [facility] [id number] [facility] 2022-11-13 06:59:00 2022-11-13 09:48:00 Hospital Encounter MlDominic johnson 1.2.840.1 66338.1.1 3.104.2.7 .3.189827 .8 [id number] [facility] 2022-11-13 07:58:00 2022-11-13 08:33:00 Anesthesia Event Hunter Cruz Joan 1.2.840.1 75954.1.1 3.104.2.7 .3.951210 .8 [id number] [facility] 2022-11-13 07:15:00 2022-11-13 08:15:00 Surgery Dominic Keita 1.2.840.1 18501.1.1 3.104.2.7 .3.780889 .8 [id number] [facility] 2022-11-13 00:00:00 2022-11-13 00:00:00 Orders Only Doctor Unassigned, [place] [facility] 1.2.840.1 01378.1.1 3.104.2.7 .3.517380 .8 [id number] [facility] 2022-11-13 00:00:00 2022-11-13 00:00:00 Telephone Dominic Keita 1.2.840.1 55898.1.1 3.104.2.7 .3.591287 .8 [id number] [facility] 2022-11-13 00:00:00 2022-11-13 00:00:00 Travel 1.2.840.1 40770.1.1 3.104.2.7 .3.869097 .8 1.2.840.114 350.1.13.10 4.2.7.3.698 084.8 [id number] [facility] 2022-11-10 00:00:00 2022-11-10 00:00:00 Outpatient R RADIOLOGY [facility] [id number] [facility] 2022-11-10 00:00:00 2022-11-10 00:00:00 Patient Secure Msg Dominic Keita 1.2.840.1 64084.1.1 3.104.2.7 .3.495972 .8 [id number] [facility] 2022-11-09 00:00:00 2022-11-09 00:00:00 Patient Secure Msg Doctor Unassigned, [place] [facility] 1.2.840.1 23235.1.1 3.104.2.7 .3.215089 .8 [id number] [facility] 2022-11-07 00:00:00 2022-11-07 00:00:00 Patient Secure Msg Doctor Unassigned, [place] [facility] 1.2.840.1 04983.1.1 3.104.2.7 .3.736389 .8 [id number] [facility] 2022-11-03 10:36:00 2022-11-03 13:16:00 Emergency X DORA NEWMAN [facility] ERT [id number] [facility] 2022-11-03 10:36:00 2022-11-03 13:16:00 Emergency Deloris Dora G 1.2.840.1 25885.1.1 3.104.2.7 .3.053736 .8 [id number] [facility] 2022-11-03 00:00:00 2022-11-03 00:00:00 Travel 1.2.840.1 20650.1.1 3.104.2.7 .3.799578 .8 1.2.840.114 350.1.13.10 4.2.7.3.698 084.8 [id number] [facility] 2022-10-30 00:00:00 2022-10-30 00:00:00 Case Management VanessakarlElidia Zhannadedra 1.2.840.1 95467.1.1 3.104.2.7 .3.065077 .8 [id number] [facility] 2022-10-19 08:30:00 2022-10-19 08:45:00 Extracorporeal Technician Visit Jewel Cunha c-Lab 1.2.840.1 89275.1.1 3.104.2.7 .3.037145 .8 [id number] [facility] 2022-10-19 07:30:00 2022-10-19 08:15:30 Outpatient R JEWEL CUNHA [facility] [id number] [facility] 2022-10-19 07:30:00 2022-10-19 08:15:30 Office Visit Jewel Cunha Abdullkarl Gamble 1.2.840.1 27750.1.1 3.104.2.7 .3.000831 .8 [id number] [facility] 2022-10-19 00:00:00 2022-10-19 00:00:00 Orders Only Doctor Unassigned, [place] [facility] 1.2.840.1 87582.1.1 3.104.2.7 .3.635821 .8 [id number] [facility] 2022-10-18 00:00:00 2022-10-18 00:00:00 Travel 1.2.840.1 66987.1.1 3.104.2.7 .3.742439 .8 1.2.840.114 350.1.13.10 4.2.7.3.698 084.8 [id number] [facility] 2022-10-12 09:56:06 2022-10-12 09:56:06 Outpatient [facility] [id number] Robert Cali 2022-10-12 00:00:00 2022-10-12 00:00:00 Orders Only Doctor Unassigned, [place] [facility] 1.2.840.1 97069.1.1 3.104.2.7 .3.032698 .8 [id number] [facility] 2022-10-05 10:15:00 2022-10-05 10:30:00 Extracorporeal Technician Visit Kath Vences, [facility] 1.2.840.1 03655.1.1 3.104.2.7 .3.600506 .8 [id number] [facility] 2022-10-05 10:15:00 2022-10-05 10:15:00 Outpatient R KATH VENCES [facility] [id number] [facility] 2022-10-04 09:30:00 2022-10-04 10:30:11 Outpatient DEXTER MIRELES [facility] [id number] [facility] 2022-10-04 00:00:00 2022-10-04 00:00:00 Orders Only Doctor Unassigned, [place] [facility] 1.2.840.1 80373.1.1 3.104.2.7 .3.619415 .8 [id number] [facility] 2022-10-04 00:00:00 2022-10-04 00:00:00 Travel 1.2.840.1 62018.1.1 3.104.2.7 .3.408394 .8 1.2.840.114 350.1.13.10 4.2.7.3.698 084.8 [id number] [facility] 2022-10-02 00:00:00 2022-10-02 00:00:00 Travel 1.2.840.1 48587.1.1 3.104.2.7 .3.601855 .8 1.2.840.114 350.1.13.10 4.2.7.3.698 084.8 [id number] [facility] 2022-09-06 08:45:00 2022-09-06 08:45:00 Outpatient SARA DELGADILLO KIMBERLY [facility] [id number] [facility] 2022-09-06 00:00:00 2022-09-06 00:00:00 Travel 1.2.840.1 44696.1.1 3.104.2.7 .3.898175 .8 1.2.840.114 350.1.13.10 4.2.7.3.698 084.8 [id number] [facility] 2022-07-26 11:00:00 2022-07-26 11:15:00 Extracorporeal Technician Visit Pathology Pcp-Lab 1.2.840.1 23701.1.1 3.104.2.7 .3.948499 .8 [id number] [facility] 2022-07-26 08:45:00 2022-07-26 09:37:46 Outpatient SARA DELGADILLO KIMBERLY [facility] [id number] [facility] 2022-07-26 00:00:00 2022-07-26 00:00:00 Orders Only Doctor Unassigned, [place] [facility] 1.2.840.1 46998.1.1 3.104.2.7 .3.296746 .8 [id number] [facility] 2022-07-26 00:00:00 2022-07-26 00:00:00 Travel 1.2.840.1 34033.1.1 3.104.2.7 .3.428421 .8 1.2.840.114 350.1.13.10 4.2.7.3.698 084.8 [id number] [facility] 2022-07-24 13:24:12 2022-07-24 13:24:12 Outpatient SFA SFA [id number] Robert Cali 2022-06-27 13:49:18 2022-06-27 13:49:18 Outpatient SFA SFA [id number] Robert Cali 2022-06-21 08:52:50 2022-06-21 08:52:50 Outpatient SFA SFA [id number] Robert Ambrose Viraj 2022-06-15 15:23:34 2022-06-15 15:23:34 Outpatient SFA SFA [id number] Robert Cali 2022-05-31 08:45:00 2022-05-31 08:45:00 Outpatient SARA DELGADILLO KIMBERLY [facility] [id number] [facility] 2022-05-30 11:55:27 2022-05-30 11:55:27 Outpatient SFA SFA [id number] Roberteliz Cali 2022-05-23 11:17:29 2022-05-23 11:17:29 Outpatient SFA SFA [id number] Robert Cali 2022-05-12 08:06:11 2022-05-12 08:06:11 Outpatient [facility] [id number] Robert Cali 2022-05-11 13:45:44 2022-05-11 13:45:44 Outpatient [facility] [id number] Robert Cali 2022-04-08 00:00:00 2022-04-08 00:00:00 Orders Only Doctor Unassigned, [place] [facility] 1.2.840.1 03800.1.1 3.104.2.7 .3.844552 .8 [id number] [facility] 2022-02-21 00:00:00 2022-02-21 00:00:00 Orders Only Doctor Unassigned, [place] [facility] 1.2.840.1 19486.1.1 3.104.2.7 .3.649325 .8 [id number] [facility] 2022-02-15 13:30:00 2022-02-15 13:45:00 Extracorporeal Technician Visit Pathology Pcp-Lab 1.2.840.1 63295.1.1 3.104.2.7 .3.869979 .8 [id number] [facility] 2022-02-15 08:45:00 2022-02-15 10:52:26 Outpatient DEXTER MIRELES [facility] [id number] [facility] 2022-02-15 00:00:00 2022-02-15 00:00:00 Travel 1.2.840.1 39878.1.1 3.104.2.7 .3.324058 .8 1.2.840.114 350.1.13.10 4.2.7.3.698 084.8 [id number] [facility] 2022-01-11 11:00:00 2022-01-11 12:39:46 Outpatient SARA DELGADILLO KIMBERLY [facility] [id number] [facility] 2022-01-11 00:00:00 2022-01-11 00:00:00 Orders Only Doctor Unassigned, [place] [facility] 1.2.840.1 02898.1.1 3.104.2.7 .3.855490 .8 [id number] [facility] 2022-01-11 00:00:00 2022-01-11 00:00:00 Travel 1.2.840.1 77920.1.1 3.104.2.7 .3.031838 .8 1.2.840.114 350.1.13.10 4.2.7.3.698 084.8 [id number] [facility] 2021-11-24 09:30:00 2021-11-24 09:30:00 Outpatient R IGOR SAAVEDRA [facility] [id number] [facility] 2021-11-16 11:00:00 2021-11-16 11:00:00 Outpatient R SARA HESTER KIMBERLY [facility] [id number] [facility] 2021-10-26 08:00:00 2021-10-26 08:00:00 Outpatient R DEXTER DIAS [facility] [id number] [facility] 2021-10-20 10:00:00 2021-10-20 10:00:00 Outpatient R IGOR SAAVEDRA [facility] [id number] [facility] 2021-10-03 14:30:00 2021-10-03 14:30:00 Outpatient R DAVIDSON SUTHERLAND [facility] [id number] [facility] 2021-09-21 09:30:00 2021-09-21 09:30:00 Outpatient R DEXTER DAIS [facility] [id number] [facility] 2021-08-24 09:30:00 2021-08-24 10:41:34 Outpatient R DEXTER DIAS [facility] [id number] [facility] 2021-08-24 00:00:00 2021-08-24 00:00:00 Travel 1.2.840.1 95267.1.1 3.104.2.7 .3.816513 .8 1.2.840.114 350.1.13.10 4.2.7.3.698 084.8 [id number] [facility] 2021-07-25 09:00:00 2021-07-25 09:00:00 Outpatient R LARISSADEXTER [facility] [id number] [facility] 2021-06-22 11:15:00 2021-06-22 12:18:05 Outpatient R SARA HESTER KIMBERLY [facility] [id number] [facility] 2021-06-22 11:15:00 2021-06-22 11:15:00 Outpatient R SARA HESTER KIMBERLY [facility] [id number] [facility] 2021-06-22 00:00:00 2021-06-22 00:00:00 Travel 1.2.840.1 36589.1.1 3.104.2.7 .3.098011 .8 1.2.840.114 350.1.13.10 4.2.7.3.698 084.8 [id number] [facility] 2021-06-20 11:15:00 2021-06-20 11:15:00 Outpatient R LARISSA [facility] [id number] [facility] 2021-06-20 11:15:00 2021-06-20 11:15:00 Outpatient R SELF [facility] [id number] [facility] 2021-06-08 09:20:00 2021-06-08 09:20:00 Outpatient R HILARY MOORE STRAHIL [facility] [id number] [facility] 2021-06-08 00:00:00 2021-06-08 00:00:00 Patient Secure Igor William Rai [facility] 1.2.840.114 350.1.13.10 4.2.7.2.686 [id number] [facility] 2021-06-07 09:13:00 2021-06-07 10:50:00 Emergency X GIGI MONROY [facility] E[facility] [id number] [facility] 2021-06-07 09:13:00 2021-06-07 10:50:00 Emergency Gigi Monroy [facility] 1.2.840.114 350.1.13.10 4.2.7.2.686 [id number] [facility] 2021-06-07 09:13:00 2021-06-07 10:50:00 Emergency Gigi Monroy 1.2.840.1 21436.1.1 3.104.2.7 .3.763147 .8 [id number] [facility] 2021-06-07 00:00:00 2021-06-07 00:00:00 Outpatient IGOR Castaneda RAI [facility] [id number] [facility] 2021-06-07 00:00:00 2021-06-07 00:00:00 Orders Only Doctor Unassigned, [place] [facility] 1.2.840.114 350.1.13.10 4.2.7.2.686 [id number] [facility] 2021-06-07 00:00:00 2021-06-07 00:00:00 Travel 1.2.840.1 64342.1.1 3.104.2.7 .3.319928 .8 1.2.840.114 350.1.13.10 4.2.7.3.698 084.8 [id number] [facility] 2021-06-07 00:00:00 2021-06-07 00:00:00 Orders Only Doctor Unassigned, [place] [facility] [place] 1.2.840.1 90570.1.1 3.104.2.7 .3.514291 .8 [id number] [facility] 2021-06-03 00:00:00 2021-06-03 00:00:00 Travel 1.2.840.1 80670.1.1 3.104.2.7 .3.610649 .8 1.2.840.114 350.1.13.10 4.2.7.3.698 084.8 [id number] [facility] 2021-05-27 00:00:00 2021-05-27 00:00:00 Outpatient IGOR Castaneda RAI [facility] [id number] [facility] 2021-05-27 00:00:00 2021-05-27 00:00:00 Outpatient IGOR Castaneda RAI [facility] [id number] [facility] 2021-05-25 00:00:00 2021-05-25 00:00:00 Patient Secure Msg Doctor Unassigned, [place] [facility] 1.2.840.114 350.1.13.10 4.2.7.2.686 [id number] [facility] 2021-05-25 00:00:00 2021-05-25 00:00:00 Patient Secure Msg Doctor Unassigned, [place] [facility] [place] 1.2.840.1 78353.1.1 3.104.2.7 .3.440772 .8 [id number] [facility] 2021-05-20 00:00:00 2021-05-20 00:00:00 Telephone Zane Martinez 1.2.840.1 26896.1.1 3.104.2.7 .3.819524 .8 [id number] [facility] 2021-05-20 00:00:00 2021-05-20 00:00:00 Telephone Zane Martinez 1.2.840.1 10817.1.1 3.104.2.7 .3.369223 .8 [id number] [facility] 2021-05-18 00:00:00 2021-05-18 00:00:00 Travel 1.2.840.1 06294.1.1 3.104.2.7 .3.034032 .8 1.2.840.114 350.1.13.10 4.2.7.3.698 084.8 [id number] [facility] 2021-05-18 00:00:00 2021-05-18 00:00:00 Travel 1.2.840.1 53428.1.1 3.104.2.7 .3.446196 .8 1.2.840.114 350.1.13.10 4.2.7.3.698 084.8 [id number] [facility] 2021-05-17 13:15:00 2021-05-17 13:30:00 Extracorporeal Technician Visit Pcp-Lab Igor Saavedra [facility] 1.2.840.114 350.1.13.10 4.2.7.2.686 [id number] [facility] 2021-05-17 13:15:00 2021-05-17 13:30:00 Extracorporeal Technician Visit Igor Saavedra Pcp-Lab 1.2.840.1 15749.1.1 3.104.2.7 .3.807780 .8 [id number] [facility] 2021-05-17 13:15:00 2021-05-17 13:30:00 Extracorporeal Technician Visit Igor Saavedra Pcp-Lab 1.2.840.1 38111.1.1 3.104.2.7 .3.002713 .8 [id number] [facility] 2021-05-17 09:00:00 2021-05-17 10:25:05 Outpatient R IGOR SAAVEDRA [facility] [id number] [facility] 2021-05-17 09:00:00 2021-05-17 10:25:05 Office Visit Igor SaavedraDeonte johnson 1.2.840.1 22961.1.1 3.104.2.7 .3.090106 .8 [id number] [facility] 2021-05-17 09:00:00 2021-05-17 10:25:05 Outpatient R IGOR SAAVEDRA [facility] [id number] [facility] 2021-05-17 09:30:00 2021-05-17 09:30:00 Outpatient R IGOR SAAVEDRA [facility] [id number] [facility] 2021-05-17 00:00:00 2021-05-17 00:00:00 Travel 1.2.840.1 73739.1.1 3.104.2.7 .3.674433 .8 1.2.840.114 350.1.13.10 4.2.7.3.698 084.8 [id number] [facility] 2021-05-17 00:00:00 2021-05-17 00:00:00 Travel 1.2.840.1 18621.1.1 3.104.2.7 .3.654895 .8 1.2.840.114 350.1.13.10 4.2.7.3.698 084.8 [id number] [facility] 2021-04-26 09:00:00 2021-04-26 09:00:00 Outpatient R [facility] [id number] [facility] 2021-04-26 09:00:00 2021-04-26 09:00:00 Outpatient R UNKNOWN, ATTENDING [facility] [id number] [facility] 2021-04-20 08:45:00 2021-04-20 08:45:00 Outpatient SARA DELGADILLO KIMBERLY [facility] [id number] [facility] 2021-04-11 08:40:00 2021-04-11 08:40:00 Outpatient SALLY FIGUEROA HOWARD [facility] [id number] [facility] 2021-04-11 08:40:00 2021-04-11 08:40:00 Outpatient SALLY FIGUEROA HOWARD [facility] [id number] [facility] 2021-03-21 08:00:00 2021-03-21 08:00:00 Outpatient SALLY FIGUEROA HOWARD [facility] [id number] [facility] 2021-03-17 00:00:00 2021-03-17 00:00:00 Patient Secure Msg Doctor Unassigned, [place] [facility] 1.2.840.114 350.1.13.10 4.2.7.2.686 [id number] [facility] 2021-03-17 00:00:00 2021-03-17 00:00:00 Patient Secure Msg Doctor Unassigned, [place] [facility] 1.840.1 38285.1.1 3.104.2.7 .3.617779 .8 [id number] [facility] 2021-03-17 00:00:00 2021-03-17 00:00:00 Patient Secure Msg Doctor Unassigned, [place] [facility] 1.2.840.1 03323.1.1 3.104.2.7 .3.878183 .8 [id number] [facility] 2021-03-16 13:15:00 2021-03-16 13:30:00 Extracorporeal Technician Visit Salbador Lockwood Pcp-Lab 1.2.840.1 50958.1.1 3.104.2.7 .3.692173 .8 [id number] [facility] 2021-03-16 13:15:00 2021-03-16 13:30:00 Extracorporeal Technician Visit Salbador Lockwood Pcp-Lab 1.2.840.1 59686.1.1 3.104.2.7 .3.786859 .8 [id number] [facility] 2021-03-16 13:15:00 2021-03-16 13:15:00 Outpatient SALBADOR CRONIN [facility] [id number] [facility] 2021-03-16 12:00:00 2021-03-16 12:09:51 Outpatient SARA DELGADILLO KIMBERLY [facility] [id number] [facility] 2021-03-16 12:00:00 2021-03-16 12:09:51 [id number] 2021-03-16 12:00:00 2021-03-16 12:00:00 Outpatient [facility] [id number] [facility] 2021-03-16 00:00:00 2021-03-16 00:00:00 Travel 1.2.840.1 59277.1.1 3.104.2.7 .3.828943 .8 1.2.840.114 350.1.13.10 4.2.7.3.698 084.8 [id number] [facility] 2021-03-16 00:00:00 2021-03-16 00:00:00 Travel 1.2.840.1 62398.1.1 3.104.2.7 .3.747452 .8 1.2.840.114 350.1.13.10 4.2.7.3.698 084.8 [id number] [facility] 2021-03-11 09:44:00 2021-03-11 13:06:00 Emergency X HALIMA CONNOR [facility] E[facility] [id number] [facility] 2021-03-11 09:44:00 2021-03-11 13:06:00 Emergency Halima Connor 1.2.840.1 49515.1.1 3.104.2.7 .3.417612 .8 [id number] [facility] 2021-03-11 09:44:00 2021-03-11 13:06:00 Emergency X HALIMA CONNOR [facility] E[facility] [id number] [facility] 2021-03-11 09:44:00 2021-03-11 13:06:00 Emergency Halima Connor J 1.2.840.1 02147.1.1 3.104.2.7 .3.912112 .8 [id number] [facility] 2021-03-11 09:44:00 2021-03-11 13:06:00 Emergency X HALIMA CONNOR [facility] E[facility] [id number] [facility] 2021-03-11 09:44:00 2021-03-11 09:44:00 Emergency X HALIMA CONNOR [facility] E[facility] [id number] [facility] 2021-03-11 00:00:00 2021-03-11 00:00:00 Travel 1.2.840.1 52744.1.1 3.104.2.7 .3.931513 .8 1.2.840.114 350.1.13.10 4.2.7.3.698 084.8 [id number] [facility] 2021-03-11 00:00:00 2021-03-11 00:00:00 Travel 1.2.840.1 89459.1.1 3.104.2.7 .3.504301 .8 1.2.840.114 350.1.13.10 4.2.7.3.698 084.8 [id number] [facility] 2021-03-08 15:00:00 2021-03-08 15:15:00 Extracorporeal Technician Visit Salbador Lockwood Pcp-Lab 1.2.840.1 51232.1.1 3.104.2.7 .3.159356 .8 [id number] [facility] 2021-03-08 15:00:00 2021-03-08 15:15:00 Extracorporeal Technician Visit Salbador Lockwood Pcp-Lab 1.2.840.1 88731.1.1 3.104.2.7 .3.106966 .8 [id number] [facility] 2021-03-08 15:00:00 2021-03-08 15:00:00 Outpatient R SALBADOR LOCKWOOD [facility] [id number] [facility] 2021-01-31 10:15:00 2021-01-31 10:55:06 Outpatient R SELF [facility] [id number] [facility] 2020-12-29 08:00:00 2020-12-29 08:41:00 Outpatient R SELF [facility] [id number] [facility] 2020-12-29 08:00:00 2020-12-29 08:41:00 Outpatient R SELF [facility] [id number] [facility] 2020-12-29 00:00:00 2020-12-29 00:00:00 Travel 1.2.840.1 78144.1.1 3.104.2.7 .3.118585 .8 1.2.840.114 350.1.13.10 4.2.7.3.698 084.8 [id number] [facility] 2020-12-29 00:00:00 2020-12-29 00:00:00 Travel 1.2.840.1 47792.1.1 3.104.2.7 .3.276487 .8 1.2.840.114 350.1.13.10 4.2.7.3.698 084.8 [id number] [facility] 2020-12-22 09:30:00 2020-12-22 09:30:00 Outpatient R SELF [facility] [id number] [facility] 2020-12-22 09:30:00 2020-12-22 09:30:00 Outpatient R SELF [facility] [id number] [facility] 2020-11-26 00:00:00 2020-11-26 00:00:00 Orders Only Doctor Unassigned, [place] [facility] 1.2.840.114 350.1.13.10 4.2.7.2.686 [id number] [facility] 2020-11-10 09:30:00 2020-11-10 09:30:00 Outpatient R ROBERT NOWAK [facility] [id number] [facility] 2020-11-10 00:00:00 2020-11-10 00:00:00 Orders Only Doctor Unassigned, [place] [facility] 1.2.840.1 66029.1.1 3.104.2.7 .3.551462 .8 [id number] [facility] 2020-11-10 00:00:00 2020-11-10 00:00:00 Travel 1.2.840.1 00861.1.1 3.104.2.7 .3.572222 .8 1.2.840.114 350.1.13.10 4.2.7.3.698 084.8 [id number] [facility] 2020-10-11 08:00:00 2020-10-11 08:00:00 Outpatient Tonya DEXTER DIAS [facility] [id number] [facility] 2020-10-11 00:00:00 2020-10-11 00:00:00 Travel 1.2.840.1 14205.1.1 3.104.2.7 .3.551404 .8 1.2.840.114 350.1.13.10 4.2.7.3.698 084.8 [id number] [facility] 2020-09-13 08:00:00 2020-09-13 08:00:00 Outpatient R DEXTER DIAS [facility] [id number] [facility] 2020-09-13 00:00:00 2020-09-13 00:00:00 Travel 1.2.840.1 20423.1.1 3.104.2.7 .3.899202 .8 1.2.840.114 350.1.13.10 4.2.7.3.698 084.8 [id number] [facility] 2020-09-02 16:12:00 2020-09-02 20:21:00 Emergency Patti Rose 1.2.840.1 59341.1.1 3.104.2.7 .3.114832 .8 [id number] [facility] 2020-09-02 16:12:00 2020-09-02 20:21:00 Emergency Patti Rose [facility] 1.2.840.114 350.1.13.10 4.2.7.2.686 [id number] 2020-09-02 00:00:00 2020-09-02 00:00:00 Travel 1.2.840.1 63336.1.1 3.104.2.7 .3.709332 .8 1.2.840.114 350.1.13.10 4.2.7.3.698 084.8 [id number] [facility] 2020-09-02 00:00:00 2020-09-02 00:00:00 Orders Only Doctor Unassigned, [place] [facility] 1.2.840.1 16241.1.1 3.104.2.7 .3.693611 .8 [id number] [facility] 2020-09-02 00:00:00 2020-09-02 00:00:00 Orders Only Doctor Unassigned, [place] Number [facility] 1.2.840.114 350.1.13.10 4.2.7.2.686 [id number] 2020-08-25 09:15:00 2020-08-25 09:15:00 Outpatient R [facility] [id number] [facility] 2020-08-09 08:45:00 2020-08-09 08:45:00 Outpatient R DEXTER DIAS [facility] [id number] [facility] 2020-06-28 13:45:00 2020-06-28 13:45:00 Outpatient R FABIÁNJORDONMOUNA [facility] [id number] [facility] 2020-06-21 15:15:00 2020-06-21 15:15:00 Outpatient R SELFDEXTER [facility] [id number] [facility] 2020-06-07 08:45:00 2020-06-07 08:45:00 [id number] 2020-05-25 08:30:00 2020-05-25 08:30:00 Outpatient R CRISTO MARTINEZ [facility] [id number] [facility] 2020-03-15 13:00:00 2020-03-15 13:00:00 Outpatient R SALBADOR LOCKWOOD [facility] [id number] [facility] 2020-03-08 13:00:00 2020-03-08 13:00:00 [facility] [id number] [facility] 2020-02-16 11:00:00 2020-02-16 11:00:00 [facility] [id number] [facility] 2020-01-27 11:45:00 2020-01-27 11:45:00 [facility] [id number] [facility] 2020-01-19 08:00:00 2020-01-19 08:00:00 Outpatient R SELF [facility] [id number] [facility] 2019-12-22 08:45:00 2019-12-22 08:45:00 [facility] [id number] [facility] 2019-12-05 10:45:00 2019-12-05 10:45:00 Outpatient R JEWEL MORAES [facility] [id number] [facility] 2019-10-23 09:15:00 2019-10-23 09:15:00 Outpatient Tonya DELGADO KATH [facility] [id number] [facility] 2019-10-15 11:30:00 2019-10-15 11:30:00 Outpatient Tonya DREWSHEROBERT Meyer [facility] [id number] [facility] 2019-10-01 14:30:00 2019-10-01 14:30:00 Outpatient Tonya NOWAK ROBERT [facility] [id number] [facility] 2019-09-01 08:45:00 2019-09-01 08:45:00 Outpatient Tonya DEXTER DIAS [facility] [id number] [facility] 2019-08-06 13:00:00 2019-08-06 13:00:00 Outpatient ANGELA HERRERA [facility] [id number] [facility] Results Test Description Test Time Test Comments Results Result Co mments Source Robert [id number] 00:00:00* Test Item Value Reference Range Interpretation Comme nts FERRITIN (test code = 2276-4) 15 ng/mL Robert CaliLipid 1996 panel - Serum or [id number] 00:00:00* Test Item Value Reference Range Interpretation Comme nts cholesterol (test code = cholesterol) 230 mg/dL 0-200 H triglycerides (test code = triglycerides) 130 mg/dL 10-150 HDL cholesterol (test code = HDL cholesterol) 53 mg/dL >50 HDL risk factor (test code = HDL risk factor) 4.3 calc. VLDL cholesterol (test code = VLDL cholesterol) 26 calc dldl (test code = dldl) 157 mg/dL <100 H [facility] Free [Mass/volume] in Serum or Plasma 2024-04-07 00:00:00* Test Item Value Reference Range Interpretation Comme nts free T3 (test code = free T3) 3.0 pg/mL 2.0-4.7 [facility]hydroepiandrosterone sulfate (DHEA-S) [Mass/volume] in Serum or [id number] 00:00:00* Test Item Value Reference Range Interpretation Comme nts DHEA-S (test code = DHEA-S) 51.6 ug/dL 98.8-340.0 L [facility] MedicalThyrotropin [Units/volume] in Serum or [id number] 00:00:00* Test Item Value Reference Range Interpretation Comme nts TSH (test code = TSH) 1.070 uIU/mL 0.500-4.530 [facility] MedicalComprehensive metabolic 2000 panel - Serum or [id number] 00:00:00* Test Item Value Reference Range Interpretation [...] (test code = eGFR) 91.967 mL/min/1.73A? >60.000 [facility] Zbsbhbq82-Ylyrgzsfotgawx D3+25-Hydroxyvitamin D2 [Mass/volume] in Serum or [id number] 00:00:00* Test Item Value Reference Range Interpretation Comme nts vitamin D III (test code = v itamin D III) 14.6 NG/mL 32.0-100.0 L [facility] MedicalTestosterone free and total panel [Mass/volume] - Serum or Plasma 2024-04-07 00:00:00* Test Item Value Reference Range Interpretation Comme nts free testosterone (test code = free testosterone) 0.13 NG/dL 0.12-0.64 sex hormone binding globulin (test code = sex hormone binding globulin) 46.70 nmol/L 10.00-57.00 testosterone (test code = testosterone) 9.3 NG/dL 8.4-48.1 [facility] MedicalInsulin [Units/volume] in Serum or [id number] 00:00:00* Test Item Value Reference Range Interpretation Comme nts insulin (test code = insulin) 23.2 uIU/mL 2.6-24.9 [facility] MedicalHemoglobin A1c/Hemoglobin.total in [id number] 00:00:00* Test Item Value Reference Range Interpretation Comme nts Hemoglobin A1c/Hemoglobin.to lorraine in Blood (test code = 4548-4) 5.0 % <5.6 [facility] Medicalinfectious disease [id number] 00:00:00* Test Item Value Reference Range Interpretation [...] staphylococcus epidermidis, haemolyticus, lugdunensis) 0.000 ppm 19.961-24.689 [facility] [id number] 07:30:50* Test Item Value Reference Range Interpretation Comme nts FERRITIN (test code = 2075) 18 NG/ML 13-200 UNLESS OTHERWISE INDICATED, ALL TESTING PERFORMED AT [facility] [address] [place] [address] DAIRY FE[employer] SALES CONSULTANT: CHARLA HERNANDEZ M.D. CLIA NUMBER [id number] [facility]. [id number] COMPREHENSIVE METABOLIC [id number] 07:30:06* Test Item Value Reference Range Interpretation Comme nts GLUCOSE (test code = 2217) 98 MG/DL 70-99 BUN (test code = 2208) 12 MG/DL 6-20 CREATININE (test code = 2214) 0.80 MG/DL 0.60-1.30 eGFR (2021 CKD-EPI) (test co de = 31230) 92 ML/MIN/1.73 >60 CALC BUN/CREAT (test code = 223) 15 RATIO 6-28 SODIUM (test code = 223) 139 MEQ/L 133-146 POTASSIUM (test code = 2228) 3.7 MEQ/L 3.5-5.4 CHLORIDE (test code = 2215) 101 MEQ/L 95-107 CARBON DIOXIDE (test code = 220) 25 MEQ/L 19-31 CALCIUM (test code = 9) 9.8 MG/DL 8.5-10.5 PROTEIN, TOTAL (test code = 2228) 6.7 G/DL 6.1-8.3 ALBUMIN (test code = 2200) 4.4 G/DL 3.5-5.2 CALC GLOBULIN (test code = 0) 2.3 G/DL 1.9-3.7 CALC A/G RATIO (test code = 4) 1.9 RATIO 1.0-2.6 BILIRUBIN, TOTAL (test code = 2206) 0.2 MG/DL <=1.2 ALKALINE PHOSPHATASE (test code = 2203) 168 U/L 40-118 H AST (test code = 2218) 18 U/L 9-40 ALT (test code = 2219) 30 U/L 5-40 CBC W/AUTO DIFF WITH [id number] 05:07:43* Test Item Value Reference Range Interpretation [...] 0.00-0.10 ABS NUCLEATED RBCS (test code = 57460) 0.00 K/UL 0.00-0.11 CBC W/AUTO [id number] 00:00:00* Test Item Value Reference Range Interpretation [...] ABS NUCLEATED RBCS (test cod e = 10464) 0.00 K/UL Robert CaliCOMPREHENSIVE METABOLIC [id number] 00:00:00* Test Item Value Reference Range Interpretation Comme nts GLUCOSE (test code = 2217) 98 MG/DL BUN (test code = 2208) 12 MG/DL CREATININE (test code = 2214) 0.80 MG/DL eGFR (2020 CKD-EPI) (test co de = 36726) 92 ML/MIN/1.73 CALC BUN/CREAT (test code = [...] (test code = 2219) 30 U/L Robert CaliMjxfqyHOZHJARG4173-05-72 00:00:00* Test Item Value Reference Range Interpretation Comme nts FERRITIN (test code = 2075) 18 NG/ML Robert CaliCBC W/AUTO [id number] 00:00:00* Test Item Value Reference Range Interpretation [...] ABS NUCLEATED RBCS (test cod e = 72925) 0.00 K/UL Robert CaliCOMPREHENSIVE METABOLIC [id number] 00:00:00* Test Item Value Reference Range Interpretation Comme nts GLUCOSE (test code = 2217) 98 MG/DL BUN (test code = 2208) 12 MG/DL CREATININE (test code = 2214) 0.80 MG/DL eGFR (2020 CKD-EPI) (test co de = 02874) 92 ML/MIN/1.73 CALC BUN/CREAT (test code = [...] (test code = 2219) 30 U/L Robert CaliFscpvbPDCXOMSM7566-61-84 00:00:00* Test Item Value Reference Range Interpretation Comme nts FERRITIN (test code = 2075) 18 NG/ML Robert Ambrose Austinpregnancy test, [id number] 08:16:44* Test Item Value Reference Range Interpretation Comme nts HCG (test code = HCG) negative [facility] Medicaligp, apt HPV,rfx 16/18,[id number] 00:00:00* Test Item Value Reference Range Interpretation Comme nts diagnosis: (test code = diagnosis:) SPRCS specimen adequacy: (test cod e = specimen adequacy:) SPRCS performed by: (test code = p erformed by:) [facility] note: (test code = note:) PAPSMR test methodology: (test code = test methodology:) IGLPAP HPV aptima (test code = HPV aptima) NEGATIVE negative [facility] Pathology biopsy [id number] 00:00:00Clinical InformationPathologistA SourceA Gross DescriptionA DiagnosisA CommentPrivia Medicalurinalysis, [id number] 00:00:00* Test Item Value Reference Range Interpretation [...] A [facility] MedicalBacteria identified in Urine by [id number] 00:00:00* Test Item Value Reference Range Interpretation Comme nts urine culture, routine (test code = urine culture, routine) Final report result 1 (test code = result 1) MUG [facility] MedicalUA/M w/rflx culture, [id number] 00:00:00* Test Item Value Reference Range Interpretation [...] = urinalysis reflex) FLEX [facility] Medicalpregnancy test, [id number] 15:14:21* Test Item Value Reference Range Interpretation Comme nts HCG (test code = HCG) negative [facility] MedicalThyrotropin [Units/volume] in Serum or [id number] 00:00:00* Test Item Value Reference Range Interpretation Comme nts TSH (test code = TSH) 1.100 uIU/mL 0.500-4.530 [facility] MedicalEstradiol (E2) [Mass/volume] in Serum or [id number] 00:00:00 * Test Item Value Reference Range Interpretation Comme nts estradiol (test code = estradiol) 81.3 pg/mL 6.1-91.9 [facility] MedicalFollitropin [Units/volume] in Serum or [id number] 00:00:00* Test Item Value Reference Range Interpretation Comme nts FSH (test code = FSH) 3.9 mIU/mL [facility] MedicalChlamydia trachomatis and Neisseria gonorrhoeae rRNA panel - Specimen by KELI with probe [id number] 00:00:00* Test Item Value Reference Range Interpretation Comme nts aptima combo 2 swab (CT) (te st code = aptima combo 2 swab (CT)) CT NEG negative aptima combo 2 swab (GC) (te st code = aptima combo 2 swab (GC)) GC NEG negative [facility] Medicalurinalysis, [id number] 08:44:12* Test Item Value Reference Range Interpretation Comme nts Leukocytes (test code = Leukocytes) 1+ Nitrite (test code = Nitrite) negative Urobilinogen (test code = Urobilinogen) Normal Protein (test code = Protein) Negative pH (test code = pH) 6.0 Blood (test code = Blood) Non-Hemolyzed: Moderate Specific Wheeler (test code = Specific Wheeler) 1.020 Ketone (test code = Ketone) Negative Bilirubin (test code = Bilirubin) Negative Glucose (test code = Glucose) Negative Appearance (test code = Appearance) Slightly Cloudy Color (test code = Color) Yellow [facility] MedicalANA (ANTI-NUCLEAR AB) WITH REFLEX [id number] 00:00:00* Test Item Value Reference Range Interpretation Comme nts ANTI-NUCLEAR ANTIBODIES (aram t code = 3506) NEGATIVE YAZMIN PATTERN (REPORTED TITER) (test code = 64824) SEE BELOW HOMOGENEOUS (test code = 52509) NEGATIVE TITER SPECKLED (test code = 322809) NEGATIVE TITER DENSE FINE SPECKLED (test co de = 50294) NEGATIVE TITER CENTROMERE (test code = 897500) NEGATIVE TITER COARSE SPECKLED (test code = 365205) NEGATIVE TITER DISCRETE NUCLEAR DOTS (test code = 828372) NEGATIVE TITER NUCLEOLAR (test code = 162314) NEGATIVE TITER NUCLEAR MEMBRANE (test code = 310998) NEGATIVE TITER CYTO. RETICULAR (SANDY) (test code = 867257) NEGATIVE COMMENTS (test code = 516704) NONE METHOD (test code = 80859) (NOTE) Robert Arnol Adamaris (ANTI-NUCLEAR AB) WITH REFLEX [id number] 00:00:00* Test Item Value Reference Range Interpretation Comme nts ANTI-NUCLEAR ANTIBODIES (aram t code = 3506) NEGATIVE YAZMIN PATTERN (REPORTED TITER) (test code = 85882) SEE BELOW HOMOGENEOUS (test code = 62480) NEGATIVE TITER SPECKLED (test code = 805255) NEGATIVE TITER DENSE FINE SPECKLED (test co de = 98560) NEGATIVE TITER CENTROMERE (test code = 217041) NEGATIVE TITER COARSE SPECKLED (test code = 292300) NEGATIVE TITER DISCRETE NUCLEAR DOTS (test code = 403611) NEGATIVE TITER NUCLEOLAR (test code = 645871) NEGATIVE TITER NUCLEAR MEMBRANE (test code = 926381) NEGATIVE TITER CYTO. RETICULAR (SANDY) (test code = 329257) NEGATIVE COMMENTS (test code = 328157) NONE METHOD (test code = 81802) (NOTE) Robert CaliYAZMIN (ANTI-NUCLEAR AB) WITH REFLEX [id number] 00:00:00* Test Item Value Reference Range Interpretation Comme nts ANTI-NUCLEAR ANTIBODIES (aram t code = 3506) NEGATIVE YAZMIN PATTERN (REPORTED TITER) (test code = 19249) SEE BELOW HOMOGENEOUS (test code = 70455) NEGATIVE TITER SPECKLED (test code = 532918) NEGATIVE TITER DENSE FINE SPECKLED (test co de = 29229) NEGATIVE TITER CENTROMERE (test code = 082624) NEGATIVE TITER COARSE SPECKLED (test code = 751682) NEGATIVE TITER DISCRETE NUCLEAR DOTS (test code = 344201) NEGATIVE TITER NUCLEOLAR (test code = 448902) NEGATIVE TITER NUCLEAR MEMBRANE (test code = 137002) NEGATIVE TITER CYTO. RETICULAR (SANDY) (test code = 078195) NEGATIVE COMMENTS (test code = 418388) NONE METHOD (test code = 66238) (NOTE) Robert Ambrose Adamaris (ANTI-NUCLEAR AB) WITH REFLEX [id number] 00:00:00* Test Item Value Reference Range Interpretation Comme nts ANTI-NUCLEAR ANTIBODIES (aram t code = 3506) NEGATIVE YAZMIN PATTERN (REPORTED TITER) (test code = 96144) SEE BELOW HOMOGENEOUS (test code = 40276) NEGATIVE TITER SPECKLED (test code = 500366) NEGATIVE TITER DENSE FINE SPECKLED (test co de = 38476) NEGATIVE TITER CENTROMERE (test code = 714347) NEGATIVE TITER COARSE SPECKLED (test code = 958748) NEGATIVE TITER DISCRETE NUCLEAR DOTS (test code = 032834) NEGATIVE TITER NUCLEOLAR (test code = 327852) NEGATIVE TITER NUCLEAR MEMBRANE (test code = 404289) NEGATIVE TITER CYTO. RETICULAR (SANDY) (test code = 796368) NEGATIVE COMMENTS (test code = 977520) NONE METHOD (test code = 64514) (NOTE) Robert CaliCOMPLEMENT, TOTAL [id number] 00:00:00* Test Item Value Reference Range Interpretation Comme nts COMPLEMENT, TOTAL HEM (test code = 3508) 61 U/mL Robert Ambrose AustindsDNA [id number] 00:00:00* Test Item Value Reference Range Interpretation Comme nts dsDNA ANTIBODY (test code = 4287) <1.0 IU/ML Robert Ambrose AustinCOMPLEMENT, TOTAL [id number] 00:00:00* Test Item Value Reference Range Interpretation Comme nts COMPLEMENT, TOTAL HEM (test code = 3508) 61 U/mL Robert Ambrose AustindsDNA [id number] 00:00:00* Test Item Value Reference Range Interpretation Comme nts dsDNA ANTIBODY (test code = 4287) <1.0 IU/ML Robert Ambrose AustinCOMPLEMENT, TOTAL [id number] 00:00:00* Test Item Value Reference Range Interpretation Comme nts COMPLEMENT, TOTAL HEM (test code = 3508) 61 U/mL Robert Ambrose AustindsDNA [id number] 00:00:00* Test Item Value Reference Range Interpretation Comme nts dsDNA ANTIBODY (test code = 4287) <1.0 IU/ML Robert Ambrose AustinCOMPLEMENT, TOTAL [id number] 00:00:00* Test Item Value Reference Range Interpretation Comme nts COMPLEMENT, TOTAL HEM (test code = 3508) 61 U/mL Robert Ambrose AustindsDNA [id number] 00:00:00* Test Item Value Reference Range Interpretation Comme nts dsDNA ANTIBODY (test code = 4287) <1.0 IU/ML Robert CaliC-REACTIVE [id number] 00:00:00* Test Item Value Reference Range Interpretation Comme nts C-REACTIVE PROTEIN (test cod e = 3513) 0.6 MG/DL Robert Ambrose AustinSEDIMENTATION [id number] 00:00:00* Test Item Value Reference Range Interpretation Comme nts SEDIMENTATION RATE (test cod e = 1017) 5 MM/HOUR Robert CaliRHEUMATOID FACTOR, [id number] 00:00:00* Test Item Value Reference Range Interpretation Comme nts RHEUMATOID FACTOR, QUANT (te st code = 3502) <10 IU/ML Robert CaliRETICULOCYTE [id number] 00:00:00* Test Item Value Reference Range Interpretation Comme nts RETICULOCYTE HEMOGLOBIN (aram t code = 66354) 26.3 PG Robert F AustinC-REACTIVE [id number] 00:00:00* Test Item Value Reference Range Interpretation Comme nts C-REACTIVE PROTEIN (test cod e = 3513) 0.6 MG/DL Robert F AustinSEDIMENTATION [id number] 00:00:00* Test Item Value Reference Range Interpretation Comme nts SEDIMENTATION RATE (test cod e = 1017) 5 MM/HOUR Robert F AustinRHEUMATOID FACTOR, [id number] 00:00:00* Test Item Value Reference Range Interpretation Comme nts RHEUMATOID FACTOR, QUANT (te st code = 3502) <10 IU/ML Robert F AustinRETICULOCYTE [id number] 00:00:00* Test Item Value Reference Range Interpretation Comme nts RETICULOCYTE HEMOGLOBIN (aram t code = 75600) 26.3 PG Robert F AustinC-REACTIVE [id number] 00:00:00* Test Item Value Reference Range Interpretation Comme nts C-REACTIVE PROTEIN (test cod e = 3513) 0.6 MG/DL Robert F AustinSEDIMENTATION [id number] 00:00:00* Test Item Value Reference Range Interpretation Comme nts SEDIMENTATION RATE (test cod e = 1017) 5 MM/HOUR Robert F AustinRHEUMATOID FACTOR, [id number] 00:00:00* Test Item Value Reference Range Interpretation Comme nts RHEUMATOID FACTOR, QUANT (te st code = 3502) <10 IU/ML Robert F AustinRETICULOCYTE [id number] 00:00:00* Test Item Value Reference Range Interpretation Comme nts RETICULOCYTE HEMOGLOBIN (aram t code = 06303) 26.3 PG Robert F AustinC-REACTIVE [id number] 00:00:00* Test Item Value Reference Range Interpretation Comme nts C-REACTIVE PROTEIN (test cod e = 3513) 0.6 MG/DL Robert F AustinSEDIMENTATION [id number] 00:00:00* Test Item Value Reference Range Interpretation Comme nts SEDIMENTATION RATE (test cod e = 1017) 5 MM/HOUR Robert F AustinRHEUMATOID FACTOR, [id number] 00:00:00* Test Item Value Reference Range Interpretation Comme nts RHEUMATOID FACTOR, QUANT (te st code = 3502) <10 IU/ML Robert CaliRETICULOCYTE [id number] 00:00:00* Test Item Value Reference Range Interpretation Comme nts RETICULOCYTE HEMOGLOBIN (aram t code = 80502) 26.3 PG Robert Ambrose AustinCBC W/AUTO [id number] 00:00:00* Test Item Value Reference Range Interpretation [...] ABS NUCLEATED RBCS (test cod e = 67481) 0.00 K/UL Robert Ambrose AustinCBC W/AUTO [id number] 00:00:00* Test Item Value Reference Range Interpretation [...] ABS NUCLEATED RBCS (test cod e = 05300) 0.00 K/UL Robert Ambrose [facility] W/AUTO [id number] 00:00:00* Test Item Value Reference Range Interpretation [...] ABS NUCLEATED RBCS (test cod e = 20498) 0.00 K/UL Robert Ambrose AustinCBC W/AUTO [id number] 00:00:00* Test Item Value Reference Range Interpretation [...] ABS NUCLEATED RBCS (test cod e = 14863) 0.00 K/UL Robert Ambrose AustinCBC W/AUTO [id number] 00:00:00* Test Item Value Reference Range Interpretation [...] ABS NUCLEATED RBCS (test cod e = 18897) 0.00 K/UL Robert Ambrose [facility] W/AUTO [id number] 00:00:00* Test Item Value Reference Range Interpretation [...] ABS NUCLEATED RBCS (test cod e = 50300) 0.00 K/UL Robert Amborse [id number] 05:10:38* Test Item Value Reference Range Interpretation Comme nts FERRITIN (test code = 2075) 69 NG/ML 13-200 CBC W/AUTO DIFF WITH [id number] 02:22:56* Test Item Value Reference Range Interpretation [...] 0.00-0.10 ABS NUCLEATED RBCS (test code = 03431) 0.00 K/UL 0.00-0.11 UNLESS OTHER SPARROW INDICATED, ALL TESTING PERFORMED AT [facility] [address] [place] [address] [employer] SALES CONSULTANT: CHARLA HERNANDEZ M.D. CLIA NUMBER [id number] [facility]. [id number] 00:00:00* Test Item Value Reference Range Interpretation Comme nts FERRITIN (test code = 2075) 69 NG/ML Robert Ambrose [facility] W/AUTO [id number] 00:00:00* Test Item Value Reference Range Interpretation [...] ABS NUCLEATED RBCS (test cod e = 52999) 0.00 K/UL Robert [id number] 00:00:00* Test Item Value Reference Range Interpretation Comme nts FERRITIN (test code = 2075) 69 NG/ML Robert CaliCBC W/AUTO [id number] 00:00:00* Test Item Value Reference Range Interpretation [...] ABS NUCLEATED RBCS (test cod e = 82973) 0.00 K/UL Robert [id number] 00:00:00* Test Item Value Reference Range Interpretation Comme nts FERRITIN (test code = 2074) 69 NG/ML Robert Ambrose AustinCBC W/AUTO [id number] 00:00:00* Test Item Value Reference Range Interpretation [...] ABS NUCLEATED RBCS (test cod e = 07883) 0.00 K/UL Robert Ambrose [id number] 00:00:00* Test Item Value Reference Range Interpretation Comme nts FERRITIN (test code = 2075) 69 NG/ML Robert Ambrose AustinCBC W/AUTO [id number] 00:00:00* Test Item Value Reference Range Interpretation [...] ABS NUCLEATED RBCS (test cod e = 36266) 0.00 K/UL Robert [id number] 00:00:00* Test Item Value Reference Range Interpretation Comme nts FERRITIN (test code = 2075) 69 NG/ML Robert Ambrose AustinCBC W/AUTO [id number] 00:00:00* Test Item Value Reference Range Interpretation [...] ABS NUCLEATED RBCS (test cod e = 36226) 0.00 K/UL Robert [id number] 00:00:00* Test Item Value Reference Range Interpretation Comme nts FERRITIN (test code = 2075) 69 NG/ML Robert CaliCBC W/AUTO [id number] 00:00:00* Test Item Value Reference Range Interpretation [...] ABS NUCLEATED RBCS (test cod e = 27258) 0.00 K/UL Robert Ambrose AustinTHYROID [id number] 00:00:00* Test Item Value Reference Range Interpretation Comme nts MAGNESIUM (test code = 91362969) 2.2 mg/dL See_Comment N [Automated messa ge] The system which generated this result transmitted reference range: 1.5-2.5 mg/dL. The reference range was not used to interpret this result as normal/abnormal. PROLACTIN (test code = 82688180) 8.2 ng/mL N ALBUMIN (test code = 26708751) 4.3 g/dL See_Comment N [Automated messa ge] The system which generated this result transmitted reference range: 3.6-5.1 g/dL. The reference range was not used to interpret this result as normal/abnormal. ALBUMIN/GLOBULIN RATIO (test code = 15850305) 2.0 (calc) See_Comment N [Automated messa ge] The system which generated this result transmitted reference range: 1.0-2.5 (calc). The reference range was not used to interpret this result as normal/abnormal. ALKALINE PHOSPHATASE (test code = 38458401) 126 U/L See_Comment H [Automated messa ge] The system which generated this result transmitted reference range: 31-125 U/L. The reference range was not used to interpret this result as normal/abnormal. ALT (test code = 81652639) 26 U/L See_Comment N [Automated messa ge] The system which generated this result transmitted reference range: 6-29 U/L. The reference range was not used to interpret this result as normal/abnormal. AST (test code = 07231685) 20 U/L See_Comment N [Automated messa ge] The system which generated this result transmitted reference range: 10-35 U/L. The reference range was not used to interpret this result as normal/abnormal. BILIRUBIN, TOTAL (test code = 64785689) 0.3 mg/dL See_Comment N [Automated Yasmoa ge] The system which generated this result transmitted reference range: 0.2-1.2 mg/dL. The reference range was not used to interpret this result as normal/abnormal. BUN/CREATININE RATIO (test code = 05569170) SEE NOTE: (calc) See_Comment [Automated message] The system which generated this result transmitted reference range: 6-22 (calc). The reference range was not used to interpret this result as normal/abnormal. CALCIUM (test code = 37321589) 9.2 mg/dL See_Comment N [Automated Yasmoa ge] The system which generated this result transmitted reference range: 8.6-10.2 mg/dL. The reference range was not used to interpret this result as normal/abnormal. CARBON DIOXIDE (test code = 02714454) 30 mmol/L See_Comment N [Automated Yasmo age] The system which generated this result transmitted reference range: 20-32 mmol/L. The reference range was not used to interpret this result as normal/abnormal. CHLORIDE (test code = 70325360) 104 mmol/L See_Comment N [Automated Yasmoa ge] The system which generated this result transmitted reference range: 98-110 mmol/L. The reference range was not used to interpret this result as normal/abnormal. CREATININE (test code = 44165759) 0.71 mg/dL See_Comment N [Automated Yasmo age] The system which generated this result transmitted reference range: 0.50-0.99 mg/dL. The reference range was not used to interpret this result as normal/abnormal. GLOBULIN (test code = 54594087) 2.2 g/dL (calc) See_Comment N [Automated message] The system which generated this result transmitted reference range: 1.9-3.7 g/dL (calc). The reference range was not used to interpret this result as normal/abnormal. GLUCOSE (test code = 27291655) 91 mg/dL See_Comment N [Automated messa ge] The system which generated this result transmitted reference range: 65-99 mg/dL. The reference range was not used to interpret this result as normal/abnormal. POTASSIUM (test code = 42815747) 4.3 mmol/L See_Comment N [Automated messa ge] The system which generated this result transmitted reference range: 3.5-5.3 mmol/L. The reference range was not used to interpret this result as normal/abnormal. PROTEIN, TOTAL (test code = 54584678) 6.5 g/dL See_Comment N [Automated mess age] The system which generated this result transmitted reference range: 6.1-8.1 g/dL. The reference range was not used to interpret this result as normal/abnormal. SODIUM (test code = 35223068) 140 mmol/L See_Comment N [Automated messa ge] The system which generated this result transmitted reference range: 135-146 mmol/L. The reference range was not used to interpret this result as normal/abnormal. UREA NITROGEN (BUN) (test code = 00074017) 8 mg/dL See_Comment N [Automated messa ge] The system which generated this result transmitted reference range: 7-25 mg/dL. The reference range was not used to interpret this result as normal/abnormal. ABSOLUTE BASOPHILS (test code = 86071513) 28 cells/uL See_Comment N [Automated messa ge] The system which generated this result transmitted reference range: 0-200 cells/uL. The reference range was not used to interpret this result as normal/abnormal. ABSOLUTE EOSINOPHILS (test code = 30398590) 252 cells/uL See_Comment N [Automated messa ge] The system which generated this result transmitted reference range: 15-500 cells/uL. The reference range was not used to interpret this result as normal/abnormal. ABSOLUTE LYMPHOCYTES (test code = 26211507) 1127 cells/uL See_Comment N [Automated messa ge] The system which generated this result transmitted reference range: 850-3900 cells/uL. The reference range was not used to interpret this result as normal/abnormal. ABSOLUTE MONOCYTES (test code = 80466028) 392 cells/uL See_Comment N [Automated messa ge] The system which generated this result transmitted reference range: 200-950 cells/uL. The reference range was not used to interpret this result as normal/abnormal. ABSOLUTE NEUTROPHILS (test code = 92289910) 5201 cells/uL See_Comment N [Automated messa ge] The system which generated this result transmitted reference range: 0045-3153 cells/uL. The reference range was not used to interpret this result as normal/abnormal. BASOPHILS (test code = 96300264) 0.4 % N COMMENT(S) (test code = 65666828) EOSINOPHILS (test code = 21325834) 3.6 % N HEMATOCRIT (test code = 79847321) 32.0 % See_Comment L [Automated mess age] The system which generated this result transmitted reference range: 35.0-45.0 %. The reference range was not used to interpret this result as normal/abnormal. HEMOGLOBIN (test code = 66233927) 9.3 g/dL See_Comment L [Automated mess age] The system which generated this result transmitted reference range: 11.7-15.5 g/dL. The reference range was not used to interpret this result as normal/abnormal. LYMPHOCYTES (test code = 84256400) 16.1 % N MCH (test code = 40886896) 21.7 pg See_Comment L [Automated messa ge] The system which generated this result transmitted reference range: 27.0-33.0 pg. The reference range was not used to interpret this result as normal/abnormal. MCHC (test code = 97301828) 29.1 g/dL See_Comment L [Automated messa ge] The system which generated this result transmitted reference range: 32.0-36.0 g/dL. The reference range was not used to interpret this result as normal/abnormal. MCV (test code = 29647729) 74.6 fL See_Comment L [Automated messa ge] The system which generated this result transmitted reference range: 80.0-100.0 fL. The reference range was not used to interpret this result as normal/abnormal. MONOCYTES (test code = 17554492) 5.6 % N MPV (test code = 87853790) 10.9 fL See_Comment N [Automated messa ge] The system which generated this result transmitted reference range: 7.5-12.5 fL. The reference range was not used to interpret this result as normal/abnormal. NEUTROPHILS (test code = 63696744) 74.3 % N PLATELET COUNT (test code = 75534224) 326 Thousand/uL See_Comment N [Automated message] The system which generated this result transmitted reference range: 140-400 Thousand/uL. The reference range was not used to interpret this result as normal/abnormal. RDW (test code = 51480029) 18.7 % See_Comment H [Automated [employer]] The system which generated this result transmitted reference range: 11.0-15.0 %. The reference range was not used to interpret this result as normal/abnormal. RED BLOOD CELL COUNT (test code = 87271314) 4.29 Million/uL See_Comment N [Automated message] The system which generated this result transmitted reference range: 3.80-5.10 Million/uL. The reference range was not used to interpret this result as normal/abnormal. WHITE BLOOD CELL COUNT (test code = 93271725) 7.0 Thousand/uL See_Comment N [Automated message] The system which generated this result transmitted reference range: 3.8-10.8 Thousand/uL. The reference range was not used to interpret this result as normal/abnormal. FREE T4 INDEX (T7) (test code = 41648715) 2.0 1.4-3.8 N T3 UPTAKE (test code = 78989032) 27 % See_Comment N [Automated [employer]] The system which generated this result transmitted reference range: 22-35 %. The reference range was not used to interpret this result as normal/abnormal. T4 (THYROXINE), TOTAL (test code = 97982915) 7.3 mcg/dL See_Comment N [Automated [employer]] The system which generated this result transmitted reference range: 5.1-11.9 mcg/dL. The reference range was not used to interpret this result as normal/abnormal. YAZMIN (ANTI-NUCLEAR AB) WITH REFLEX [id number] 06:46:04* Test Item Value Reference Range Interpretation Comme nts ANTI-NUCLEAR ANTIBODIES (test code = 3506) NEGATIVE NEGATIVE Methodology is I ndirect Immunofluorescent Assay (IFA) with a titering system using [id number] cells (Hep2 cells transfected with SS-A/Ro). YAZMIN PATTERN (REPORTED TITER) (test code = 63631) SEE BELOW HOMOGENEOUS (test code = 47964) NEGATIVE TITER NEGATIVE SPECKLED (test code = 483015) NEGATIVE TITER NEGATIVE DENSE FINE SPECKLED (test code = 09409) NEGATIVE TITER NEGATIVE CENTROMERE (test code = 313762) NEGATIVE TITER NEGATIVE COARSE SPECKLED (test code = 302818) NEGATIVE TITER NEGATIVE DISCRETE NUCLEAR DOTS (test code = 029139) NEGATIVE TITER NEGATIVE NUCLEOLAR (test code = 362717) NEGATIVE TITER NEGATIVE NUCLEAR MEMBRANE (test code = 604027) NEGATIVE TITER NEGATIVE CYTO. RETICULAR (SANDY) (test code = 997167) NEGATIVE NEGATIVE COMMENTS (test code = 992086) NONE METHOD (test code = 20116) (NOTE) TESTING PERFORME D BY [employer] IFA PLATFORM.THE METHOD INCLUDES A SCREEN THRESHOLD OF 1:80, DIGITIZED AND COMPUTER ALGORITHM-ASSISTED INTERPRETATION OF TITERS AND DIGITAL PATTERNS, AND HEp-2 CELL LINE SUBSTRATE. ADDITIONAL UNUSUAL PATTERNS WILL BE GIVEN COMMENTS.FOR MORE INFORMATION, SEE [email or web address] UNLESS OTHERWISE INDICATED, ALL TESTING PERFORMED AT [facility] [address] [place] [address] DAIRY FEED SALES CONSULTANT: CHARLA HERNANDEZ M.D. [place] NUMBER [id number] [facility] [place]. [id number] NOTE:2023-12-07 06:05:36* Test Item Value Reference Range Interpretation Comme nts NOTE: (test code = 998) (NOTE) IN ACCORDANCE [facility] FEDERAL GUIDELINES REQUIRING ALL VERBAL REQUESTS FOR LABORATORY TESTS TO BE ACCOMPANIED BY WRITTEN AUTHORIZATION WITHIN 30 DAYS OF THIS REQUEST, PLEASE SIGN BELOW AND RETURN A COPY OF THIS REPORT BY FAX TO THE LABORATORY SCANNING DEPARTMENT AT [phone]. PHYSICIAN'S SIGNATURE DATE NOTE: [ADDED]2023-12-07 00:00:00* Test Item Value Reference Range Interpretation Comme nts NOTE: (test code = 998) (NOTE) Robert Bailon (ANTI-NUCLEAR AB) WITH REFLEX TITER [ADDED]2023-12-07 00:00:00* Test Item Value Reference Range Interpretation Comme nts ANTI-NUCLEAR ANTIBODIES (aram t code = 3506) NEGATIVE YAZMIN PATTERN (REPORTED TITER) (test code = 07572) SEE BELOW HOMOGENEOUS (test code = 66767) NEGATIVE TITER SPECKLED (test code = 916664) NEGATIVE TITER DENSE FINE SPECKLED (test co de = 30277) NEGATIVE TITER CENTROMERE (test code = 921839) NEGATIVE TITER COARSE SPECKLED (test code = 507954) NEGATIVE TITER DISCRETE NUCLEAR DOTS (test code = 681428) NEGATIVE TITER NUCLEOLAR (test code = 310662) NEGATIVE TITER NUCLEAR MEMBRANE (test code = 853995) NEGATIVE TITER CYTO. RETICULAR (SANDY) (test code = 356498) NEGATIVE COMMENTS (test code = 708164) NONE METHOD (test code = 28817) (NOTE) Robert Ambrose VirajNOTE: [ADDED]2023-12-07 00:00:00* Test Item Value Reference Range Interpretation Comme nts NOTE: (test code = 998) (NOTE) Robert Bailon (ANTI-NUCLEAR AB) WITH REFLEX TITER [ADDED]2023-12-07 00:00:00* Test Item Value Reference Range Interpretation Comme nts ANTI-NUCLEAR ANTIBODIES (aram t code = 3506) NEGATIVE YAZMIN PATTERN (REPORTED TITER) (test code = 48958) SEE BELOW HOMOGENEOUS (test code = 13593) NEGATIVE TITER SPECKLED (test code = 718550) NEGATIVE TITER DENSE FINE SPECKLED (test co de = 31496) NEGATIVE TITER CENTROMERE (test code = 443124) NEGATIVE TITER COARSE SPECKLED (test code = 935101) NEGATIVE TITER DISCRETE NUCLEAR DOTS (test code = 488744) NEGATIVE TITER NUCLEOLAR (test code = 599218) NEGATIVE TITER NUCLEAR MEMBRANE (test code = 373919) NEGATIVE TITER CYTO. RETICULAR (SANDY) (test code = 302404) NEGATIVE COMMENTS (test code = 758714) NONE METHOD (test code = 73595) (NOTE) Robert Ambrose VirajNOTE: [ADDED]2023-12-07 00:00:00* Test Item Value Reference Range Interpretation Comme nts NOTE: (test code = 998) (NOTE) Robert Bailon (ANTI-NUCLEAR AB) WITH REFLEX TITER [ADDED]2023-12-07 00:00:00* Test Item Value Reference Range Interpretation Comme nts ANTI-NUCLEAR ANTIBODIES (aram t code = 3506) NEGATIVE YAZMIN PATTERN (REPORTED TITER) (test code = 98396) SEE BELOW HOMOGENEOUS (test code = 42166) NEGATIVE TITER SPECKLED (test code = 100500) NEGATIVE TITER DENSE FINE SPECKLED (test co de = 12278) NEGATIVE TITER CENTROMERE (test code = 863599) NEGATIVE TITER COARSE SPECKLED (test code = 783151) NEGATIVE TITER DISCRETE NUCLEAR DOTS (test code = 676623) NEGATIVE TITER NUCLEOLAR (test code = 718011) NEGATIVE TITER NUCLEAR MEMBRANE (test code = 810700) NEGATIVE TITER CYTO. RETICULAR (SANDY) (test code = 293528) NEGATIVE COMMENTS (test code = 446796) NONE METHOD (test code = 98637) (NOTE) Robert CaliNOTE: [ADDED]2023-12-07 00:00:00* Test Item Value Reference Range Interpretation Comme nts NOTE: (test code = 998) (NOTE) Robert Bailon (ANTI-NUCLEAR AB) WITH REFLEX TITER [ADDED]2023-12-07 00:00:00* Test Item Value Reference Range Interpretation Comme nts ANTI-NUCLEAR ANTIBODIES (aram t code = 3506) NEGATIVE YAZMIN PATTERN (REPORTED TITER) (test code = 87364) SEE BELOW HOMOGENEOUS (test code = 88188) NEGATIVE TITER SPECKLED (test code = 314922) NEGATIVE TITER DENSE FINE SPECKLED (test co de = 36814) NEGATIVE TITER CENTROMERE (test code = 418976) NEGATIVE TITER COARSE SPECKLED (test code = 232204) NEGATIVE TITER DISCRETE NUCLEAR DOTS (test code = 920150) NEGATIVE TITER NUCLEOLAR (test code = 294965) NEGATIVE TITER NUCLEAR MEMBRANE (test code = 032063) NEGATIVE TITER CYTO. RETICULAR (SANDY) (test code = 334111) NEGATIVE COMMENTS (test code = 543748) NONE METHOD (test code = 74193) (NOTE) Robert CaliNOTE: [ADDED]2023-12-07 00:00:00* Test Item Value Reference Range Interpretation Comme nts NOTE: (test code = 998) (NOTE) Robert Bailon (ANTI-NUCLEAR AB) WITH REFLEX TITER [ADDED]2023-12-07 00:00:00* Test Item Value Reference Range Interpretation Comme nts ANTI-NUCLEAR ANTIBODIES (aram t code = 3506) NEGATIVE YAZMIN PATTERN (REPORTED TITER) (test code = 91256) SEE BELOW HOMOGENEOUS (test code = 57748) NEGATIVE TITER SPECKLED (test code = 904648) NEGATIVE TITER DENSE FINE SPECKLED (test co de = 24380) NEGATIVE TITER CENTROMERE (test code = 770561) NEGATIVE TITER COARSE SPECKLED (test code = 906700) NEGATIVE TITER DISCRETE NUCLEAR DOTS (test code = 360380) NEGATIVE TITER NUCLEOLAR (test code = 911462) NEGATIVE TITER NUCLEAR MEMBRANE (test code = 277879) NEGATIVE TITER CYTO. RETICULAR (SANDY) (test code = 485694) NEGATIVE COMMENTS (test code = 520752) NONE METHOD (test code = 26988) (NOTE) Robert CaliNOTE: [ADDED]2023-12-07 00:00:00* Test Item Value Reference Range Interpretation Comme nts NOTE: (test code = 998) (NOTE) Robert Bailon (ANTI-NUCLEAR AB) WITH REFLEX TITER [ADDED]2023-12-07 00:00:00* Test Item Value Reference Range Interpretation Comme nts ANTI-NUCLEAR ANTIBODIES (aram t code = 3506) NEGATIVE YAZMIN PATTERN (REPORTED TITER) (test code = 34961) SEE BELOW HOMOGENEOUS (test code = 94491) NEGATIVE TITER SPECKLED (test code = 210071) NEGATIVE TITER DENSE FINE SPECKLED (test co de = 24713) NEGATIVE TITER CENTROMERE (test code = 687462) NEGATIVE TITER COARSE SPECKLED (test code = 521975) NEGATIVE TITER DISCRETE NUCLEAR DOTS (test code = 461708) NEGATIVE TITER NUCLEOLAR (test code = 956808) NEGATIVE TITER NUCLEAR MEMBRANE (test code = 359470) NEGATIVE TITER CYTO. RETICULAR (SANDY) (test code = 078962) NEGATIVE COMMENTS (test code = 488769) NONE METHOD (test code = 89712) (NOTE) Robert CaliNOTE: [ADDED]2023-12-07 00:00:00* Test Item Value Reference Range Interpretation Comme nts NOTE: (test code = 998) (NOTE) Robert Bailon (ANTI-NUCLEAR AB) WITH REFLEX TITER [ADDED]2023-12-07 00:00:00* Test Item Value Reference Range Interpretation Comme nts ANTI-NUCLEAR ANTIBODIES (aram t code = 3506) NEGATIVE YAZMIN PATTERN (REPORTED TITER) (test code = 13558) SEE BELOW HOMOGENEOUS (test code = 45776) NEGATIVE TITER SPECKLED (test code = 121715) NEGATIVE TITER DENSE FINE SPECKLED (test co de = 50286) NEGATIVE TITER CENTROMERE (test code = 715823) NEGATIVE TITER COARSE SPECKLED (test code = 817281) NEGATIVE TITER DISCRETE NUCLEAR DOTS (test code = 031612) NEGATIVE TITER NUCLEOLAR (test code = 078166) NEGATIVE TITER NUCLEAR MEMBRANE (test code = 647448) NEGATIVE TITER CYTO. RETICULAR (SANDY) (test code = 714640) NEGATIVE COMMENTS (test code = 558945) NONE METHOD (test code = 63072) (NOTE) Robert Ambrose AustinPROTEIN ELECTROPHORESIS, [id number] 14:58:50* Test Item Value Reference Range Interpretation [...] HUSSEIN M.D. VITAMIN B 12 AND FOLIC [id number] 05:31:25* Test Item Value Reference Range Interpretation [...] . . . UG/L >=6.0 COMPREHENSIVE METABOLIC [id number] 04:03:47* Test Item Value Reference Range Interpretation Comme nts GLUCOSE (test code = 2217) 95 MG/DL 70-99 BUN (test code = 2207) 13 MG/DL 6-20 CREATININE (test code = 2213) 0.65 MG/DL 0.60-1.30 eGFR (2020 CKD-EPI) (test code = 29606) 110 ML/MIN/1.73 >60 CALC BUN/CREAT (test code [...] TESTING PERFORMED AT [facility] [address] [place] [address] DAIRY FE[employer] SALES CONSULTANT: CHARLA HERNANDEZ M.D. CLIA NUMBER [id number] [place]. [id number] CBC W/AUTO DIFF WITH [id number] 03:00:25* Test Item Value Reference Range Interpretation [...] 0.00-0.10 ABS NUCLEATED RBCS (test code = 80148) 0.00 K/UL 0.00-0.11 VITAMIN B 12 AND FOLIC [id number] 00:00:00* Test Item Value Reference Range Interpretation Comme nts VITAMIN B-12 (test code = 2840) 380 PG/ML FOLIC ACID (test code = 2695) 7.0 UG/L Robert CaliPROTEIN ELECTROPHORESIS, [id number] 00:00:00* Test Item Value Reference Range Interpretation [...] code = 2568) (NOTE) Robert CaliCBC W/AUTO [id number] 00:00:00* Test Item Value Reference Range Interpretation [...] ABS NUCLEATED RBCS (test cod e = 63017) 0.00 K/UL Robert Ambrose VirajCOMPREHENSIVE METABOLIC [id number] 00:00:00* Test Item Value Reference Range Interpretation Comme nts GLUCOSE (test code = 2217) 95 MG/DL BUN (test code = 2208) 13 MG/DL CREATININE (test code = 2214) 0.65 MG/DL eGFR (2020 CKD-EPI) (test code = 13253) 110 ML/MIN/1.73 CALC BUN/CREAT (test code = [...] code = 2219) 16 U/L Robert Ambrose VirajVITAMIN B 12 AND FOLIC [id number] 00:00:00* Test Item Value Reference Range Interpretation Comme nts VITAMIN B-12 (test code = 2840) 380 PG/ML FOLIC ACID (test code = 7325) 7.0 UG/L Robert Ambrose VirajPROTEIN ELECTROPHORESIS, [id number] 00:00:00* Test Item Value Reference Range Interpretation [...] SPEP: (test code = 2568) (NOTE) [facility] [id number] 00:00:00* Test Item Value Reference Range Interpretation [...] ABS NUCLEATED RBCS (test cod e = 42161) 0.00 K/UL Robert Ambrose VirajCOMPREHENSIVE METABOLIC [id number] 00:00:00* Test Item Value Reference Range Interpretation Comme nts GLUCOSE (test code = 2217) 95 MG/DL BUN (test code = 2208) 13 MG/DL CREATININE (test code = 2214) 0.65 MG/DL eGFR (2020 CKD-EPI) (test code = 08370) 110 ML/MIN/1.73 CALC BUN/CREAT (test code = [...] Robert Arnol VirajVITAMIN B 12 AND FOLIC [id number] 00:00:00* Test Item Value Reference Range Interpretation Comme nts VITAMIN B-12 (test code = 2840) 380 PG/ML FOLIC ACID (test code = 2695) 7.0 UG/L Robert CaliPROTEIN ELECTROPHORESIS, [id number] 00:00:00* Test Item Value Reference Range Interpretation [...] = 2568) (NOTE) Robert Ambrose VirajCBC W/AUTO [id number] 00:00:00* Test Item Value Reference Range Interpretation [...] ABS NUCLEATED RBCS (test cod e = 18047) 0.00 K/UL Robert Ambrose VirajCOMPREHENSIVE METABOLIC [id number] 00:00:00* Test Item Value Reference Range Interpretation Comme nts GLUCOSE (test code = 2217) 95 MG/DL BUN (test code = 2208) 13 MG/DL CREATININE (test code = 2214) 0.65 MG/DL eGFR (2020 CKD-EPI) (test code = 01127) 110 ML/MIN/1.73 CALC BUN/CREAT (test code = [...] 8) 16 U/L ALT (test code = 221) 16 U/L Robert CaliVITAMIN B 12 AND FOLIC [id number] 00:00:00* Test Item Value Reference Range Interpretation Comme nts VITAMIN B-12 (test code = 2840) 380 PG/ML FOLIC ACID (test code = 2695) 7.0 UG/L Robert CaliPROTEIN ELECTROPHORESIS, [id number] 00:00:00* Test Item Value Reference Range Interpretation [...] code = 2568) (NOTE) Robert CaliCBC W/AUTO [id number] 00:00:00* Test Item Value Reference Range Interpretation [...] ABS NUCLEATED RBCS (test cod e = 84703) 0.00 K/UL Robert CaliCOMPREHENSIVE METABOLIC [id number] 00:00:00* Test Item Value Reference Range Interpretation Comme nts GLUCOSE (test code = 2217) 95 MG/DL BUN (test code = 2208) 13 MG/DL CREATININE (test code = 2214) 0.65 MG/DL eGFR (2020 CKD-EPI) (test code = 76542) 110 ML/MIN/1.73 CALC BUN/CREAT (test code = [...] U/L Robert CaliVITAMIN B 12 AND FOLIC [id number] 00:00:00* Test Item Value Reference Range Interpretation Comme nts VITAMIN B-12 (test code = 2840) 380 PG/ML FOLIC ACID (test code = 2695) 7.0 UG/L Robert CaliPROTEIN ELECTROPHORESIS, [id number] 00:00:00* Test Item Value Reference Range Interpretation [...] code = 2568) (NOTE) Robert CaliCBC W/AUTO [id number] 00:00:00* Test Item Value Reference Range Interpretation [...] ABS NUCLEATED RBCS (test cod e = 38391) 0.00 K/UL Robert CaliCOMPREHENSIVE METABOLIC [id number] 00:00:00* Test Item Value Reference Range Interpretation Comme nts GLUCOSE (test code = 2217) 95 MG/DL BUN (test code = 2208) 13 MG/DL CREATININE (test code = 2214) 0.65 MG/DL eGFR (2020 CKD-EPI) (test code = 83613) 110 ML/MIN/1.73 CALC BUN/CREAT (test code = [...] U/L Robert CaliVITAMIN B 12 AND FOLIC [id number] 00:00:00* Test Item Value Reference Range Interpretation Comme nts VITAMIN B-12 (test code = 2840) 380 PG/ML FOLIC ACID (test code = 2695) 7.0 UG/L Robert CaliPROTEIN ELECTROPHORESIS, [id number] 00:00:00* Test Item Value Reference Range Interpretation [...] = 2568) (NOTE) Robert Ambrose VirajCBC W/AUTO [id number] 00:00:00* Test Item Value Reference Range Interpretation [...] ABS NUCLEATED RBCS (test cod e = 34485) 0.00 K/UL Robert CaliCOMPREHENSIVE METABOLIC [id number] 00:00:00* Test Item Value Reference Range Interpretation Comme nts GLUCOSE (test code = 2217) 95 MG/DL BUN (test code = 2208) 13 MG/DL CREATININE (test code = 2214) 0.65 MG/DL eGFR (2020 CKD-EPI) (test code = 00165) 110 ML/MIN/1.73 CALC BUN/CREAT (test code = [...] (test code = 2219) 16 U/L Robert F AustinVITAMIN B 12 AND FOLIC [id number] 00:00:00* Test Item Value Reference Range Interpretation Comme nts VITAMIN B-12 (test code = 2840) 380 PG/ML FOLIC ACID (test code = 2695) 7.0 UG/L Robert CaliPROTEIN ELECTROPHORESIS, [id number] 00:00:00* Test Item Value Reference Range Interpretation [...] code = 2568) (NOTE) Robert CaliCBC W/AUTO [id number] 00:00:00* Test Item Value Reference Range Interpretation [...] ABS NUCLEATED RBCS (test cod e = 80323) 0.00 K/UL Robert CaliCOMPREHENSIVE METABOLIC [id number] 00:00:00* Test Item Value Reference Range Interpretation Comme nts GLUCOSE (test code = 2217) 95 MG/DL BUN (test code = 2208) 13 MG/DL CREATININE (test code = 2214) 0.65 MG/DL eGFR (2020 CKD-EPI) (test code = 49362) 110 ML/MIN/1.73 CALC BUN/CREAT (test code = [...] code = 2219) 16 U/L Robert CaliHAPTOGLOBIN, [id number] 13:13:35* Test Item Value Reference Range Interpretation Comme nts HAPTOGLOBIN, QUANT (test cod e = 14211) 227 MG/DL 32-197 H [id number] 05:29:31* Test Item Value Reference Range Interpretation Comme nts TRANSFERRIN (test code = 4936) 380 MG/DL 200-360 H [id number] 05:29:31* Test Item Value Reference Range Interpretation Comme nts LDH (test code = 2224) 186 U/L 135-214 [id number] 04:14:38* Test Item Value Reference Range Interpretation Comme nts FERRITIN (test code = 2075) 6 NG/ML 13-200 L VITAMIN D, 25 [id number] 04:14:10* Test Item Value Reference Range Interpretation [...] IRON BINDING CAPACITY AND IRON AND % [id number] 04:13:51* Test Item Value Reference Range Interpretation Comme nts IRON, SERUM (test code = 2222) 25 UG/DL 37-145 L UNSATURATED IBC (test code = 93745) 425 UG/DL 112-347 H CALC TOTAL IBC (test code = 2077) 450 UG/DL 250-450 CALC % IRON SAT (test code = 2079) 6 % 20-50 L URIC [id number] 04:13:51* Test Item Value Reference Range Interpretation Comme nts URIC ACID (test code = 2233) 5.8 MG/DL 2.7-6.1 UNLESS OTHERWISE INDICATED, ALL TESTING PERFORMED AT [facility] [address] [place] [address] DAIRY FEED SALES CONSULTANT: CHARLA HERNANDEZ M.D. CLIA NUMBER [id number] [facility] [place]. [id number] LIPID [id number] 04:13:51* Test Item Value Reference Range Interpretation [...] SPECIMENS. FOR MOREINFORMATION, SEE CLIENT ANNOUNCEMENT AT [email or web address] RISK RATIO LDL/HDL (test code = 2238) 2.58 RATIO <3.22 COMPREHENSIVE METABOLIC [id number] 04:13:51* Test Item Value Reference Range Interpretation Comme nts GLUCOSE (test code = 221) 97 MG/DL 70-99 BUN (test code = 2207) 9 MG/DL 6-20 CREATININE (test code = 2214) 0.86 MG/DL 0.60-1.30 eGFR (2020 CKD-EPI) (test co de = 18101) 84 ML/MIN/1.73 >60 CALC BUN/CREAT (test code [...] code = 2219) 22 U/L 5-40 HEMOGLOBIN [id number] 03:10:06* Test Item Value Reference Range Interpretation Comme nts HEMOGLOBIN A1c (test code = 43517) 5.6 % 4.2-5.6 CBC W/AUTO DIFF RFLX SMEAR [id number] 02:37:07* Test Item Value Reference Range Interpretation [...] MANUAL DIFFERENTIAL WILL BE PERFORMED IF INDICATED.SEE [email or web address]- [email or web address] CONTACT YOUR LOCAL [facility] CUSTOMER SERVICEDEPARTMENT FOR FURTHER INFORMATION. LYMPHOCYTES [...] 0.00-0.10 ABS NUCLEATED RBCS (test code = 24712) 0.00 K/UL 0.00-0.11 RETICULOCYTE WITH [id number] 02:37:07* Test Item Value Reference Range Interpretation Comme nts RETICULOCYTE COUNT (test cod e = 1018) 2.55 % 0.80-2.40 H ABSOLUTE RETICULOCYTE (test code = 94556) 115.0 K/UL 32.0-105.0 H HEMOGLOBIN [id number] 00:00:00* Test Item Value Reference Range Interpretation Comme nts HEMOGLOBIN A1c (test code = 60531) 5.6 % Robert Ambrose VirajLIPID [id number] 00:00:00* Test Item Value Reference Range Interpretation Comme nts CHOLESTEROL (test code = 2210) 212 MG/DL TRIGLYCERIDES (test code = 2232) 116 MG/DL HDL CHOLESTEROL (test code = 2220) 53 MG/DL CALC LDL CHOL (test code = 2237) 137 MG/DL RISK RATIO LDL/HDL (test cod e = 2238) 2.58 RATIO Robert Ambrose VirajCOMPREHENSIVE METABOLIC [id number] 00:00:00* Test Item Value Reference Range Interpretation Comme nts GLUCOSE (test code = 2217) 97 MG/DL BUN (test code = 2208) 9 MG/DL CREATININE (test code = 2214) 0.86 MG/DL eGFR (2020 CKD-EPI) (test co de = 23029) 84 ML/MIN/1.73 CALC BUN/CREAT (test code = [...] 2219) 22 U/L Robert CaliVITAMIN D, 25 [id number] 00:00:00* Test Item Value Reference Range Interpretation Comme nts VITAMIN D, 25 OH (test code = 4958) 18 NG/ML Robert CaliCBC W/AUTO DIFF RFLX SMEAR [id number] 00:00:00* Test Item Value Reference Range Interpretation [...] ABS NUCLEATED RBCS (test cod e = 15866) 0.00 K/UL Robert CaliRETICULOCYTE WITH [id number] 00:00:00* Test Item Value Reference Range Interpretation Comme nts RETICULOCYTE COUNT (test cod e = 1018) 2.55 % ABSOLUTE RETICULOCYTE (test code = 61690) 115.0 K/UL Robert CaliHAPTOGLOBIN, [id number] 00:00:00* Test Item Value Reference Range Interpretation Comme rigoberto HAPTOGLOBIN, QUANT (test cod e = 43431) 227 MG/DL Robert [id number] 00:00:00* Test Item Value Reference Range Interpretation Comme nts LDH (test code = 222) 186 U/L Robert CaliIRON BINDING CAPACITY AND IRON AND % [id number] 00:00:00* Test Item Value Reference Range Interpretation Comme nts IRON, SERUM (test code = 2222) 25 UG/DL UNSATURATED IBC (test code = 59500) 425 UG/DL CALC TOTAL IBC (test code = 2077) 450 UG/DL CALC % IRON SAT (test code = 2079) 6 % Robert [id number] 00:00:00* Test Item Value Reference Range Interpretation Comme nts FERRITIN (test code = 2075) 6 NG/ML Robert [id number] 00:00:00* Test Item Value Reference Range Interpretation Comme nts TRANSFERRIN (test code = 4936) 380 MG/DL Robert CaliURIC [id number] 00:00:00* Test Item Value Reference Range Interpretation Comme nts URIC ACID (test code = 2233) 5.8 MG/DL Robert CaliHEMOGLOBIN [id number] 00:00:00* Test Item Value Reference Range Interpretation Comme rigoberto HEMOGLOBIN A1c (test code = 00381) 5.6 % Robert CaliLIPID [id number] 00:00:00* Test Item Value Reference Range Interpretation Comme nts CHOLESTEROL (test code = 2210) 212 MG/DL TRIGLYCERIDES (test code = 2232) 116 MG/DL HDL CHOLESTEROL (test code = 2220) 53 MG/DL CALC LDL CHOL (test code = 2237) 137 MG/DL RISK RATIO LDL/HDL (test cod e = 2238) 2.58 RATIO Robert CaliCOMPREHENSIVE METABOLIC [id number] 00:00:00* Test Item Value Reference Range Interpretation Comme nts GLUCOSE (test code = 2217) 97 MG/DL BUN (test code = 2208) 9 MG/DL CREATININE (test code = 2214) 0.86 MG/DL eGFR (2020 CKD-EPI) (test co de = 50596) 84 ML/MIN/1.73 CALC BUN/CREAT (test code = [...] 22 U/L Robert Arnol VirajVITAMIN D, 25 [id number] 00:00:00* Test Item Value Reference Range Interpretation Comme [facility] VITAMIN D, 25 OH (test code = 4958) 18 NG/ML [facility] RFLX SMEAR [id number] 00:00:00* Test Item Value Reference Range Interpretation Comme [facility] WBC (test code = 1001) 6.2 [...] ABS NUCLEATED RBCS (test cod e = 90936) 0.00 K/UL Robert CaliRETICULOCYTE WITH [id number] 00:00:00* Test Item Value Reference Range Interpretation Comme nts RETICULOCYTE COUNT (test cod e = 1018) 2.55 % ABSOLUTE RETICULOCYTE (test code = 10430) 115.0 K/UL Robert CaliHAPTOGLOBIN, [id number] 00:00:00* Test Item Value Reference Range Interpretation Comme nts HAPTOGLOBIN, QUANT (test cod e = 29658) 227 MG/DL Robert [id number] 00:00:00* Test Item Value Reference Range Interpretation Comme nts LDH (test code = 2224) 186 U/L Robert CaliIRON BINDING CAPACITY AND IRON AND % [id number] 00:00:00* Test Item Value Reference Range Interpretation Comme nts IRON, SERUM (test code = 2222) 25 UG/DL UNSATURATED IBC (test code = 13704) 425 UG/DL CALC TOTAL IBC (test code = 2077) 450 UG/DL CALC % IRON SAT (test code = 2079) 6 % Robert [id number] 00:00:00* Test Item Value Reference Range Interpretation Comme nts FERRITIN (test code = 2075) 6 NG/ML Robert [id number] 00:00:00* Test Item Value Reference Range Interpretation Comme nts TRANSFERRIN (test code = 4936) 380 MG/DL Robert Ambrose AustinURIC [id number] 00:00:00* Test Item Value Reference Range Interpretation Comme nts URIC ACID (test code = 2233) 5.8 MG/DL Robert CaliHEMOGLOBIN [id number] 00:00:00* Test Item Value Reference Range Interpretation Comme [facility] HEMOGLOBIN A1c (test code = 44183) 5.6 % Robert CaliLIPID [id number] 00:00:00* Test Item Value Reference Range Interpretation Comme nts CHOLESTEROL (test code = 2210) 212 MG/DL TRIGLYCERIDES (test code = 2232) 116 MG/DL HDL CHOLESTEROL (test code = 2220) 53 MG/DL CALC LDL CHOL (test code = 2237) 137 MG/DL RISK RATIO LDL/HDL (test cod e = 2238) 2.58 RATIO Robert CaliCOMPREHENSIVE METABOLIC [id number] 00:00:00* Test Item Value Reference Range Interpretation Comme nts GLUCOSE (test code = 2217) 97 MG/DL BUN (test code = 2208) 9 MG/DL CREATININE (test code = 2214) 0.86 MG/DL eGFR (2020 CKD-EPI) (test co de = 10755) 84 ML/MIN/1.73 CALC BUN/CREAT (test code = [...] 2219) 22 U/L Robert CaliVITAMIN D, 25 [id number] 00:00:00* Test Item Value Reference Range Interpretation Comme [facility] VITAMIN D, 25 OH (test code = 4958) 18 NG/ML Robert CaliCBC W/AUTO DIFF RFLX SMEAR [id number] 00:00:00* Test Item Value Reference Range Interpretation [...] ABS NUCLEATED RBCS (test cod e = 71536) 0.00 K/UL Robert Ambrose VirajRETICULOCYTE WITH [id number] 00:00:00* Test Item Value Reference Range Interpretation Comme nts RETICULOCYTE COUNT (test cod e = 1018) 2.55 % ABSOLUTE RETICULOCYTE (test code = 31255) 115.0 K/UL Robert Ambrose VirajHAPTOGLOBIN, [id number] 00:00:00* Test Item Value Reference Range Interpretation Comme nts HAPTOGLOBIN, QUANT (test cod e = 30076) 227 MG/DL Robert Ambrose [id number] 00:00:00* Test Item Value Reference Range Interpretation Comme nts LDH (test code = 2224) 186 U/L Robert CaliIRON BINDING CAPACITY AND IRON AND % [id number] 00:00:00* Test Item Value Reference Range Interpretation Comme nts IRON, SERUM (test code = 2221) 25 UG/DL UNSATURATED IBC (test code = 96769) 425 UG/DL CALC TOTAL IBC (test code = 2076) 450 UG/DL CALC % IRON SAT (test code = 2078) 6 % Robert [id number] 00:00:00* Test Item Value Reference Range Interpretation Comme nts FERRITIN (test code = 2074) 6 NG/ML Robert [id number] 00:00:00* Test Item Value Reference Range Interpretation Comme nts TRANSFERRIN (test code = 4936) 380 MG/DL Robert CaliURIC [id number] 00:00:00* Test Item Value Reference Range Interpretation Comme nts URIC ACID (test code = 2233) 5.8 MG/DL Robert CaliHEMOGLOBIN [id number] 00:00:00* Test Item Value Reference Range Interpretation Comme rigoberto HEMOGLOBIN A1c (test code = 61739) 5.6 % Robert CaliLIPID [id number] 00:00:00* Test Item Value Reference Range Interpretation Comme nts CHOLESTEROL (test code = 2210) 212 MG/DL TRIGLYCERIDES (test code = 2) 116 MG/DL HDL CHOLESTEROL (test code = 2220) 53 MG/DL CALC LDL CHOL (test code = 2237) 137 MG/DL RISK RATIO LDL/HDL (test cod e = 2238) 2.58 RATIO Robert CaliCOMPREHENSIVE METABOLIC [id number] 00:00:00* Test Item Value Reference Range Interpretation Comme nts GLUCOSE (test code = 2217) 97 MG/DL BUN (test code = 2208) 9 MG/DL CREATININE (test code = 2214) 0.86 MG/DL eGFR (2020 CKD-EPI) (test co de = 05716) 84 ML/MIN/1.73 CALC BUN/CREAT (test code = [...] 2219) 22 U/L Robert CaliVITAMIN D, 25 [id number] 00:00:00* Test Item Value Reference Range Interpretation Comme nts VITAMIN D, 25 OH (test code = 4958) 18 NG/ML Robert CaliCBC W/AUTO DIFF RFLX SMEAR [id number] 00:00:00* Test Item Value Reference Range Interpretation [...] ABS NUCLEATED RBCS (test cod e = 84911) 0.00 K/UL Robert CaliRETICULOCYTE WITH [id number] 00:00:00* Test Item Value Reference Range Interpretation Comme rigoberto RETICULOCYTE COUNT (test cod e = 1018) 2.55 % ABSOLUTE RETICULOCYTE (test code = 75560) 115.0 K/UL Robert CaliHAPTOGLOBIN, [id number] 00:00:00* Test Item Value Reference Range Interpretation Comme rigoberto HAPTOGLOBIN, QUANT (test cod e = 32492) 227 MG/DL Robert Ambrose [id number] 00:00:00* Test Item Value Reference Range Interpretation Comme nts LDH (test code = 2224) 186 U/L Robert CaliIRON BINDING CAPACITY AND IRON AND % [id number] 00:00:00* Test Item Value Reference Range Interpretation Comme rigoberto IRON, SERUM (test code = 2222) 25 UG/DL UNSATURATED IBC (test code = 17874) 425 UG/DL CALC TOTAL IBC (test code = 2077) 450 UG/DL CALC % IRON SAT (test code = 2079) 6 % Robert [id number] 00:00:00* Test Item Value Reference Range Interpretation Comme nts FERRITIN (test code = 2075) 6 NG/ML Robert [id number] 00:00:00* Test Item Value Reference Range Interpretation Comme nts TRANSFERRIN (test code = 4936) 380 MG/DL Robert CaliURIC [id number] 00:00:00* Test Item Value Reference Range Interpretation Comme nts URIC ACID (test code = 2233) 5.8 MG/DL Robert CaliHEMOGLOBIN [id number] 00:00:00* Test Item Value Reference Range Interpretation Comme rigoberto HEMOGLOBIN A1c (test code = 96706) 5.6 % Robert CaliLIPID [id number] 00:00:00* Test Item Value Reference Range Interpretation Comme nts CHOLESTEROL (test code = 2210) 212 MG/DL TRIGLYCERIDES (test code = 2232) 116 MG/DL HDL CHOLESTEROL (test code = 2220) 53 MG/DL CALC LDL CHOL (test code = 2237) 137 MG/DL RISK RATIO LDL/HDL (test cod e = 2238) 2.58 RATIO Robert CaliCOMPREHENSIVE METABOLIC [id number] 00:00:00* Test Item Value Reference Range Interpretation Comme nts GLUCOSE (test code = 2217) 97 MG/DL BUN (test code = 2208) 9 MG/DL CREATININE (test code = 2214) 0.86 MG/DL eGFR (2020 CKD-EPI) (test co de = 41470) 84 ML/MIN/1.73 CALC BUN/CREAT (test code = [...] 2219) 22 U/L Robert CaliVITAMIN D, 25 [id number] 00:00:00* Test Item Value Reference Range Interpretation Comme [facility] VITAMIN D, 25 OH (test code = 4958) 18 NG/ML Robert CaliCBC W/AUTO DIFF RFLX SMEAR [id number] 00:00:00* Test Item Value Reference Range Interpretation Comme [facility] WBC (test code = 1001) 6.2 [...] ABS NUCLEATED RBCS (test cod e = 05716) 0.00 K/UL Robert Arnol VirajRETICULOCYTE WITH [id number] 00:00:00* Test Item Value Reference Range Interpretation Comme nts RETICULOCYTE COUNT (test cod e = 1018) 2.55 % ABSOLUTE RETICULOCYTE (test code = 41632) 115.0 K/UL Robert Ambrose VirajHAPTOGLOBIN, [id number] 00:00:00* Test Item Value Reference Range Interpretation Comme nts HAPTOGLOBIN, QUANT (test cod e = 27793) 227 MG/DL Robert Ambrose [id number] 00:00:00* Test Item Value Reference Range Interpretation Comme nts LDH (test code = 2224) 186 U/L Robert F VirajIRON BINDING CAPACITY AND IRON AND % [id number] 00:00:00* Test Item Value Reference Range Interpretation Comme nts IRON, SERUM (test code = 2) 25 UG/DL UNSATURATED IBC (test code = ) 425 UG/DL CALC TOTAL IBC (test code = 2076) 450 UG/DL CALC % IRON SAT (test code = 2078) 6 % Robert Arnol [id number] 00:00:00* Test Item Value Reference Range Interpretation Comme nts FERRITIN (test code = 2074) 6 NG/ML Robert [id number] 00:00:00* Test Item Value Reference Range Interpretation Comme nts TRANSFERRIN (test code = 4936) 380 MG/DL Robert CaliURIC [id number] 00:00:00* Test Item Value Reference Range Interpretation Comme nts URIC ACID (test code = 2233) 5.8 MG/DL Robert CaliHEMOGLOBIN [id number] 00:00:00* Test Item Value Reference Range Interpretation Comme rigoberto HEMOGLOBIN A1c (test code = 76180) 5.6 % Robert CaliLIPID [id number] 00:00:00* Test Item Value Reference Range Interpretation Comme nts CHOLESTEROL (test code = 2210) 212 MG/DL TRIGLYCERIDES (test code = 2232) 116 MG/DL HDL CHOLESTEROL (test code = 2220) 53 MG/DL CALC LDL CHOL (test code = 2237) 137 MG/DL RISK RATIO LDL/HDL (test cod e = 2238) 2.58 RATIO Robert CaliCOMPREHENSIVE METABOLIC [id number] 00:00:00* Test Item Value Reference Range Interpretation Comme nts GLUCOSE (test code = 2217) 97 MG/DL BUN (test code = 2208) 9 MG/DL CREATININE (test code = 2214) 0.86 MG/DL eGFR (2020 CKD-EPI) (test co de = 24690) 84 ML/MIN/1.73 CALC BUN/CREAT (test code = [...] 2219) 22 U/L Robert CaliVITAMIN D, 25 [id number] 00:00:00* Test Item Value Reference Range Interpretation Comme nts VITAMIN D, 25 OH (test code = 4958) 18 NG/ML Robert CaliCBC W/AUTO DIFF RFLX SMEAR [id number] 00:00:00* Test Item Value Reference Range Interpretation [...] ABS NUCLEATED RBCS (test cod e = 74142) 0.00 K/UL Robert CaliRETICULOCYTE WITH [id number] 00:00:00* Test Item Value Reference Range Interpretation Comme nts RETICULOCYTE COUNT (test cod e = 1018) 2.55 % ABSOLUTE RETICULOCYTE (test code = 90256) 115.0 K/UL Robert CaliHAPTOGLOBIN, [id number] 00:00:00* Test Item Value Reference Range Interpretation Comme nts HAPTOGLOBIN, QUANT (test cod e = 25538) 227 MG/DL Robert [id number] 00:00:00* Test Item Value Reference Range Interpretation Comme nts LDH (test code = 2224) 186 U/L Robert CaliIRON BINDING CAPACITY AND IRON AND % [id number] 00:00:00* Test Item Value Reference Range Interpretation Comme nts IRON, SERUM (test code = 222) 25 UG/DL UNSATURATED IBC (test code = 86382) 425 UG/DL CALC TOTAL IBC (test code = 7) 450 UG/DL CALC % IRON SAT (test code = 2078) 6 % Robert [id number] 00:00:00* Test Item Value Reference Range Interpretation Comme nts FERRITIN (test code = 2075) 6 NG/ML Robert [id number] 00:00:00* Test Item Value Reference Range Interpretation Comme nts TRANSFERRIN (test code = 4936) 380 MG/DL Robert CaliURIC [id number] 00:00:00* Test Item Value Reference Range Interpretation Comme nts URIC ACID (test code = 223) 5.8 MG/DL Robert CaliHEMOGLOBIN [id number] 00:00:00* Test Item Value Reference Range Interpretation Comme rigoberto HEMOGLOBIN A1c (test code = 68559) 5.6 % Robert CaliLIPID [id number] 00:00:00* Test Item Value Reference Range Interpretation Comme nts CHOLESTEROL (test code = 2210) 212 MG/DL TRIGLYCERIDES (test code = 2232) 116 MG/DL HDL CHOLESTEROL (test code = 2220) 53 MG/DL CALC LDL CHOL (test code = 2237) 137 MG/DL RISK RATIO LDL/HDL (test cod e = 2238) 2.58 RATIO Robert CaliCOMPREHENSIVE METABOLIC [id number] 00:00:00* Test Item Value Reference Range Interpretation Comme nts GLUCOSE (test code = 2217) 97 MG/DL BUN (test code = 2208) 9 MG/DL CREATININE (test code = 2214) 0.86 MG/DL eGFR (2020 CKD-EPI) (test co de = 87663) 84 ML/MIN/1.73 CALC BUN/CREAT (test code = [...] MG/DL ALKALINE PHOSPHATASE (test code = 2203) 149 U/L AST (test code = 221) 17 U/L ALT (test code = 2219) 22 U/L Robert CaliVITAMIN D, 25 [id number] 00:00:00* Test Item Value Reference Range Interpretation Comme nts VITAMIN D, 25 OH (test code = 4958) 18 NG[facility] RFLX SMEAR [id number] 00:00:00* Test Item Value Reference Range Interpretation [...] ABS NUCLEATED RBCS (test cod e = 75327) 0.00 K/UL Robert CaliRETICULOCYTE WITH [id number] 00:00:00* Test Item Value Reference Range Interpretation Comme nts RETICULOCYTE COUNT (test cod e = 1018) 2.55 % ABSOLUTE RETICULOCYTE (test code = 84049) 115.0 K/UL Robert CaliHAPTOGLOBIN, [id number] 00:00:00* Test Item Value Reference Range Interpretation Comme rigoberto HAPTOGLOBIN, QUANT (test cod e = 68259) 227 MG/DL Robert [id number] 00:00:00* Test Item Value Reference Range Interpretation Comme nts LDH (test code = 2224) 186 U/L Robert CaliIRON BINDING CAPACITY AND IRON AND % [id number] 00:00:00* Test Item Value Reference Range Interpretation Comme nts IRON, SERUM (test code = 2222) 25 UG/DL UNSATURATED IBC (test code = 57843) 425 UG/DL CALC TOTAL IBC (test code = 2077) 450 UG/DL CALC % IRON SAT (test code = 2079) 6 % Robert [id number] 00:00:00* Test Item Value Reference Range Interpretation Comme nts FERRITIN (test code = 2075) 6 NG/ML Robert [id number] 00:00:00* Test Item Value Reference Range Interpretation Comme nts TRANSFERRIN (test code = 4936) 380 MG/DL Robert Ambrose AustinURIC [id number] 00:00:00* Test Item Value Reference Range Interpretation Comme nts URIC ACID (test code = 2233) 5.8 MG/DL Robert Ambrose VirajCT ACUTE STROKE ANGIOGRAM [id number] 13:46:46CT STROKE ANGIOGRAM HEAD, CT STROKE ANGIOGRAM [...] caliber. The superior cerebellar arteriesare patent. The [employer] are patent bilaterally. No sizable posteriorcommunicating arteries are seen. The petrous, cavernous and supraclinoid internal carotid segmentsarewidely patent. The GIBSON and MCA are patent bilaterally. An anteriorcommunicating artery is seen. The dural venous sinuses are opacified and unremarkable.[facility] ACUTE STROKE ANGIOGRAM [id number] 13:46:46CT STROKE ANGIOGRAM HEAD, CT STROKE ANGIOGRAM [...] caliber. The superior cerebellar arteriesare patent. The [employer] are patent bilaterally. No sizable posteriorcommunicating arteries are seen. The petrous, cavernous and supraclinoid internal carotid segmentsarewidely patent. The GIBSON and MCA are patent bilaterally. An anteriorcommunicating artery is seen. The dural venous sinuses are opacified and unremarkable.[facility] ACUTE STROKE ANGIOGRAM [id number] 13:46:46CT STROKE ANGIOGRAM HEAD, CT STROKE ANGIOGRAM [...] caliber. The superior cerebellar arteriesare patent. The [employer] are patent bilaterally. No sizable posteriorcommunicating arteries are seen. The petrous, cavernous and supraclinoid internal carotid segmentsarewidely patent. The GIBSON and MCA are patent bilaterally. An anteriorcommunicating artery is seen. The dural venous sinuses are opacified and unremarkable.[facility] [id number] 13:46:46CT STROKE ANGIOGRAM HEAD, CT STROKE ANGIOGRAM [...] caliber. The superior cerebellar arteriesare patent. The [employer] are patent bilaterally. No sizable posteriorcommunicating arteries are seen. The petrous, cavernous and supraclinoid internal carotid segmentsarewidely patent. The GIBSON and MCA are patent bilaterally. An anteriorcommunicating artery is seen. The dural venous sinuses are opacified and unremarkable.[facility] WO [id number] 13:44:48EXAM: CT STROKE HEAD WO CONTRAST HISTORY: [...] clear. Thecalvarium and central skull base are unremarkable.[facility] WO [id number] 13:44:48EXAM: CT STROKE HEAD WO CONTRAST HISTORY: [...] clear. Thecalvarium and central skull base are unremarkable.[facility]2024-04-26 04:29:26* Test Item Value Reference Range Interpretation Comme nts [place] (test code = 6202095561) 0.6 mmol/L 0.6-1.2 ZAINAB (test code = ZAINAB) Toxic Range: ? Greater than 1.2 mmol/L Lab Interpretation (test code = 00564-8) Normal [facility]2024-04-26 04:29:26* Test Item Value Reference Range Interpretation Comme nts [place] (test code = 0174206014) 0.6 mmol/L 0.6-1.2 ZAINAB (test code = ZAINAB) Toxic Range: ? Greater than 1.2 mmol/L Lab Interpretation (test code = 51410-2) [address]04-26 04:29:26* Test Item Value Reference Range Interpretation Comme nts [place] (test code = 4860136875) 0.6 mmol/L 0.6-1.2 ZAINAB (test code = ZAINAB) Toxic Range: ? Greater than 1.2 mmol/L Lab Interpretation (test code = 49458-9) [address]04-26 04:29:26* Test Item Value Reference Range Interpretation Comme nts [place] (test code = 3021036760) 0.6 mmol/L 0.6-1.2 ZAINAB (test code = ZAINAB) Toxic Range: ? Greater than 1.2 mmol/L Lab Interpretation (test code = 83271-7) [address]04-26 04:29:26* Test Item Value Reference Range Interpretation Comme nts [place] (test code = 4189141218) 0.6 mmol/L 0.6-1.2 ZAINAB (test code = ZAINAB) Toxic Range: ? Greater than 1.2 mmol/L Lab Interpretation (test code = 95346-0) [address]04-26 04:29:26* Test Item Value Reference Range Interpretation Comme nts [place] (test code = 5838118666) 0.6 mmol/L 0.6-1.2 ZAINAB (test code = ZAINAB) Toxic Range: ? Greater than 1.2 mmol/L Lab Interpretation (test code = 88382-6) [address]04-26 04:29:26* Test Item Value Reference Range Interpretation Comme nts [place] (test code = 2560636773) 0.6 mmol/L 0.6-1.2 ZAINAB (test code = ZAINAB) Toxic Range: ? Greater than 1.2 mmol/L Lab Interpretation (test code = 07960-0) [address]04-26 04:29:26* Test Item Value Reference Range Interpretation Comme nts [place] (test code = 1510133450) 0.6 mmol/L 0.6-1.2 ZAINAB (test code = ZAINAB) Toxic Range: ? Greater than 1.2 mmol/L Lab Interpretation (test code = 35814-3) [facility] 04:29:26* Test Item Value Reference Range Interpretation Comme nts [place] (test code = 1189661406) 0.6 mmol/L 0.6-1.2 ZAINAB (test code = ZAINAB) Toxic Range: ? Greater than 1.2 mmol/L Lab Interpretation (test code = 77574-6) Normal [facility]2024-04-26 03:33:22 ALCOHOL<10mg/dL06/07/2023 10:33 PM CDTUTMB LABORATORY SERVICESToxic Greater than or equal to 80 mg/dL. NOTE: Whole blood values are approximately 10% to 15% lower than serum and plasma.[facility]2024-04-26 03:33:22ALCOHOL<10mg/dL06/07/2023 10:33 PM CDTUTMB LABORATORY SERVICESToxic Greater than or equal to 80 mg/dL. NOTE: Whole blood values are approximately 10% to 15% lower than serum and plasma.[facility] 2023-06-08 03:33:22ALCOHOL<10mg/dL06/07/2023 10:33 PM CDTUTMB LABORATORY SERVICESToxic Greater than or equal to 80 mg/dL. NOTE: Whole blood values are approximately 10% to 15% lower than serum and plasma.[facility]2024-04-26 03:33:22ALCOHOL<10mg/dL06/07/2023 10:33 PM CDTUTMB LABORATORY SERVICESToxic Greater than or equal to 80 mg/dL. NOTE: Whole blood values are approximately 10% to 15% lower than serum and plasma.[facility]2024-04-26 03:33:22ALCOHOL<10mg/dL06/07/2023 10:33 PM CDTUTMB LABORATORY SERVICESToxic Greater than or equal to 80 mg/dL. NOTE: Whole blood values are approximately 10% to 15% lower than serum and plasma.[facility]2024-04-26 03:33:22ALCOHOL<10mg/dL06/07/2023 10:33 PM CDTUTMB LABORATORY SERVICESToxic Greater than or equal to 80 mg/dL. NOTE: Whole blood values are approximately 10% to 15% lower than serum and plasma. [facility]2024-04-26 03:33:22 ALCOHOL<10mg/dL06/07/2023 10:33 PM CDTUTMB LABORATORY SERVICESToxic Greater than or equal to 80 mg/dL. NOTE: Whole blood values are approximately 10% to 15% lower than serum and plasma.[facility]2024-04-26 03:33:22ALCOHOL<10mg/dL06/07/2023 10:33 PM CDTUTMB LABORATORY SERVICESToxic Greater than or equal to 80 mg/dL. NOTE: Whole blood values are approximately 10% to 15% lower than serum and plasma.[facility] 2023-06-08 03:33:22ALCOHOL<10mg/dL06/07/2023 10:33 PM CDTUTMB LABORATORY SERVICESToxic Greater than or equal to 80 mg/dL. NOTE: Whole blood values are approximately 10% to 15% lower than serum and plasma.[facility] I - Code [id number] 03:15:34* Test Item Value Reference Range Interpretation Comme nts TROPONIN I (test code = 4286177852) 0.003 ng/mL <=0.034 ZAINAB (test code = [...] of biotin. Lab Interpretation (test code = 04414-3) Normal [facility] I - Code [id number] 03:15:34* Test Item Value Reference Range Interpretation Comme nts TROPONIN I (test code = 4804937146) 0.003 ng/mL <=0.034 ZAINAB (test code = [...] of biotin. Lab Interpretation (test code = 51491-5) Normal [facility] I - Code [id number] 03:15:34* Test Item Value Reference Range Interpretation Comme nts TROPONIN I (test code = 6030879162) 0.003 ng/mL <=0.034 ZAINAB (test code = [...] of biotin. Lab Interpretation (test code = 54790-2) Normal [facility] I - Code [id number] 03:15:34* Test Item Value Reference Range Interpretation Comme nts TROPONIN I (test code = 5327725406) 0.003 ng/mL <=0.034 ZAINAB (test code = [...] of biotin. Lab Interpretation (test code = 74247-9) Normal [facility] I - Code [id number] 03:15:34* Test Item Value Reference Range Interpretation Comme nts TROPONIN I (test code = 1121642984) 0.003 ng/mL <=0.034 ZIANAB (test code = ZAINAB) Reference (Normal) Range [...] of biotin. Lab Interpretation (test code = 28060-0) Normal [facility] I - Code [id number] 03:15:34* Test Item Value Reference Range Interpretation Comme nts TROPONIN I (test code = 3761158535) 0.003 ng/mL <=0.034 ZAINAB (test code = [...] of biotin. Lab Interpretation (test code = 94688-5) Normal [facility] I - Code [id number] 03:15:34* Test Item Value Reference Range Interpretation Comme nts TROPONIN I (test code = 6701376084) 0.003 ng/mL <=0.034 ZAINAB (test code = [...] of biotin. Lab Interpretation (test code = 72869-2) Normal [facility] I - Code [id number] 03:15:34* Test Item Value Reference Range Interpretation Comme nts TROPONIN I (test code = 0857712929) 0.003 ng/mL <=0.034 ZAINAB (test code = [...] of biotin. Lab Interpretation (test code = 17662-9) Normal [facility] I - Code [id number] 03:15:34* Test Item Value Reference Range Interpretation Comme nts TROPONIN I (test code = 8303715730) 0.003 ng/mL <=0.034 ZAINAB (test code = [...] of biotin. Lab Interpretation (test code = 25486-6) Normal [facility] Metabolic Panel (NA, K, CL, CO2, Glucose, BUN, Creatinine, CA) - Code [id number] 03:03:47* Test Item Value Reference Range Interpretation Comme nts NA (test code = 2471976604) 135 mmol/L 135-145 K (test code = 9217840595) 4.3 mmol/L 3.5-5.0 CL (test code = 3287620028) 103 mmol/L 98-108 CO2 TOTAL (test code = 6440477544) 28 mmol/L 23-31 AGAP (test code = 6208812523) 4 2-16 BUN (test code = 0712921392) 11 mg/dL 7-23 GLUCOSE (test code = 3103727218) 120 mg/dL 70-110 H CREATININE (test code = 2160-0) 0.71 mg/dL 0.50-1.04 CALCIUM (test code = 2902500049) 9.3 mg/dL 8.6-10.6 eGFR (test code = 33253-0) 107.0 mL/min/1.73m2 CKD-EPI eGFR (2020). Assuming creatinine has been stable day-to-day for at least three months, the eGFR indicates Category G1 (>= 90 mL/min/1.73 m2) Lab Interpretation (test code = 84405-3) Abnormal [facility] Metabolic Panel (NA, K, CL, CO2, Glucose, BUN, Creatinine, CA) - Code [id number] 03:03:47* Test Item Value Reference Range Interpretation Comme nts NA (test code = 5307182461) 135 mmol/L 135-145 K (test code = 5136078733) 4.3 mmol/L 3.5-5.0 CL (test code = 5025352699) 103 mmol/L 98-108 CO2 TOTAL (test code = 7188121563) 28 mmol/L 23-31 AGAP (test code = 6047416487) 4 2-16 BUN (test code = 0195600181) 11 mg/dL 7-23 GLUCOSE (test code = 8296660721) 120 mg/dL 70-110 H CREATININE (test code = 2160-0) 0.71 mg/dL 0.50-1.04 CALCIUM (test code = 2731057414) 9.3 mg/dL 8.6-10.6 eGFR (test code = 19887-2) 107.0 mL/min/1.73m2 CKD-EPI eGFR (2020). Assuming creatinine has been stable day-to-day for at least three months, the eGFR indicates Category G1 (>= 90 mL/min/1.73 m2) Lab Interpretation (test code = 27103-9) Abnormal [facility] Metabolic Panel (NA, K, CL, CO2, Glucose, BUN, Creatinine, CA) - Code [id number] 03:03:47* Test Item Value Reference Range Interpretation Comme nts NA (test code = 4565971969) 135 mmol/L 135-145 K (test code = 6080269683) 4.3 mmol/L 3.5-5.0 CL (test code = 9285031532) 103 mmol/L 98-108 CO2 TOTAL (test code = 6364417143) 28 mmol/L 23-31 AGAP (test code = 0259020500) 4 2-16 BUN (test code = 5965726541) 11 mg/dL 7-23 GLUCOSE (test code = 6099984668) 120 mg/dL 70-110 H CREATININE (test code = 2160-0) 0.71 mg/dL 0.50-1.04 CALCIUM (test code = 1918444588) 9.3 mg/dL 8.6-10.6 eGFR (test code = 82113-9) 107.0 mL/min/1.73m2 CKD-EPI eGFR (2020). Assuming creatinine has been stable day-to-day for at least three months, the eGFR indicates Category G1 (>= 90 mL/min/1.73 m2) Lab Interpretation (test code = 64266-4) Abnormal [facility] Metabolic Panel (NA, K, CL, CO2, Glucose, BUN, Creatinine, CA) - Code Elluax5398-99-07 03:03:47* Test Item Value Reference Range Interpretation Comme nts NA (test code = 6663502217) 135 mmol/L 135-145 K (test code = 4289593567) 4.3 mmol/L 3.5-5.0 CL (test code = 7492930760) 103 mmol/L 98-108 CO2 TOTAL (test code = 5139965423) 28 mmol/L 23-31 AGAP (test code = 8133032636) 4 2-16 BUN (test code = 6922941289) 11 mg/dL 7-23 GLUCOSE (test code = 9987427919) 120 mg/dL 70-110 H CREATININE (test code = 2160-0) 0.71 mg/dL 0.50-1.04 CALCIUM (test code = 5072152778) 9.3 mg/dL 8.6-10.6 eGFR (test code = 72632-5) 107.0 mL/min/1.73m2 CKD-EPI eGFR (2020). Assuming creatinine has been stable day-to-day for at least three months, the eGFR indicates Category G1 (>= 90 mL/min/1.73 m2) Lab Interpretation (test code = 47509-2) Abnormal [facility] Metabolic Panel (NA, K, CL, CO2, Glucose, BUN, Creatinine, CA) - Code Ufcjmh5066-20-36 03:03:47* Test Item Value Reference Range Interpretation Comme nts NA (test code = 6748569764) 135 mmol/L 135-145 K (test code = 4018415684) 4.3 mmol/L 3.5-5.0 CL (test code = 9587069169) 103 mmol/L 98-108 CO2 TOTAL (test code = 8987138879) 28 mmol/L 23-31 AGAP (test code = 6393213038) 4 2-16 BUN (test code = 2464105885) 11 mg/dL 7-23 GLUCOSE (test code = 9944812402) 120 mg/dL 70-110 H CREATININE (test code = 2160-0) 0.71 mg/dL 0.50-1.04 CALCIUM (test code = 6166890209) 9.3 mg/dL 8.6-10.6 eGFR (test code = 77302-1) 107.0 mL/min/1.73m2 CKD-EPI eGFR (2020). Assuming creatinine has been stable day-to-day for at least three months, the eGFR indicates Category G1 (>= 90 mL/min/1.73 m2) Lab Interpretation (test code = 36909-9) Abnormal [facility] Metabolic Panel (NA, K, CL, CO2, Glucose, BUN, Creatinine, CA) - Code Egekbf0825-81-02 03:03:47* Test Item Value Reference Range Interpretation Comme nts NA (test code = 1317136034) 135 mmol/L 135-145 K (test code = 9885576861) 4.3 mmol/L 3.5-5.0 CL (test code = 1621077800) 103 mmol/L 98-108 CO2 TOTAL (test code = 9570163715) 28 mmol/L 23-31 AGAP (test code = 4803486032) 4 2-16 BUN (test code = 4977800529) 11 mg/dL 7-23 GLUCOSE (test code = 3795776236) 120 mg/dL 70-110 H CREATININE (test code = 2160-0) 0.71 mg/dL 0.50-1.04 CALCIUM (test code = 4342381309) 9.3 mg/dL 8.6-10.6 eGFR (test code = 83737-6) 107.0 mL/min/1.73m2 CKD-EPI eGFR (2020). Assuming creatinine has been stable day-to-day for at least three months, the eGFR indicates Category G1 (>= 90 mL/min/1.73 m2) Lab Interpretation (test code = 43504-0) Abnormal [facility] Metabolic Panel (NA, K, CL, CO2, Glucose, BUN, Creatinine, CA) - Code Oqghys9573-14-24 03:03:47* Test Item Value Reference Range Interpretation Comme nts NA (test code = 7715636228) 135 mmol/L 135-145 K (test code = 0648657081) 4.3 mmol/L 3.5-5.0 CL (test code = 0091678942) 103 mmol/L 98-108 CO2 TOTAL (test code = 9751155254) 28 mmol/L 23-31 AGAP (test code = 7774487109) 4 2-16 BUN (test code = 7654118850) 11 mg/dL 7-23 GLUCOSE (test code = 8562393530) 120 mg/dL 70-110 H CREATININE (test code = 2160-0) 0.71 mg/dL 0.50-1.04 CALCIUM (test code = 1925569229) 9.3 mg/dL 8.6-10.6 eGFR (test code = 37865-8) 107.0 mL/min/1.73m2 CKD-EPI eGFR (2020). Assuming creatinine has been stable day-to-day for at least three months, the eGFR indicates Category G1 (>= 90 mL/min/1.73 m2) Lab Interpretation (test code = 96906-0) Abnormal [facility] Metabolic Panel (NA, K, CL, CO2, Glucose, BUN, Creatinine, CA) - Code Uusklg9003-05-95 03:03:47* Test Item Value Reference Range Interpretation Comme nts NA (test code = 1335227853) 135 mmol/L 135-145 K (test code = 2049034799) 4.3 mmol/L 3.5-5.0 CL (test code = 6428388236) 103 mmol/L 98-108 CO2 TOTAL (test code = 2929330940) 28 mmol/L 23-31 AGAP (test code = 9768701051) 4 2-16 BUN (test code = 9986558022) 11 mg/dL 7-23 GLUCOSE (test code = 1160699114) 120 mg/dL 70-110 H CREATININE (test code = 2160-0) 0.71 mg/dL 0.50-1.04 CALCIUM (test code = 4518176151) 9.3 mg/dL 8.6-10.6 eGFR (test code = 95484-1) 107.0 mL/min/1.73m2 CKD-EPI eGFR (2020). Assuming creatinine has been stable day-to-day for at least three months, the eGFR indicates Category G1 (>= 90 mL/min/1.73 m2) Lab Interpretation (test code = 29379-6) Abnormal [facility] Metabolic Panel (NA, K, CL, CO2, Glucose, BUN, Creatinine, CA) - Code Yywaev6413-80-13 03:03:47* Test Item Value Reference Range Interpretation Comme nts NA (test code = 7691960194) 135 mmol/L 135-145 K (test code = 6989119368) 4.3 mmol/L 3.5-5.0 CL (test code = 1025114057) 103 mmol/L 98-108 CO2 TOTAL (test code = 9261066554) 28 mmol/L 23-31 AGAP (test code = 7490411824) 4 2-16 BUN (test code = 3367731134) 11 mg/dL 7-23 GLUCOSE (test code = 9228912951) 120 mg/dL 70-110 H CREATININE (test code = 2160-0) 0.71 mg/dL 0.50-1.04 CALCIUM (test code = 5281752760) 9.3 mg/dL 8.6-10.6 eGFR (test code = 00151-4) 107.0 mL/min/1.73m2 CKD-EPI eGFR (2020). Assuming creatinine has been stable day-to-day for at least three months, the eGFR indicates Category G1 (>= 90 mL/min/1.73 m2) Lab Interpretation (test code = 85389-2) [facility] Code Qcxcjt2270-49-22 03:00:48* Test Item Value Reference Range Interpretation Comme nts PROTIME PATIENT (test code = 5964-2) 10.4 10.1-12.6 INR (test code = 6301-6) 0.9 Normal INR <1.1; Warfarin Therapeutic range 2.0 to 3.0 or 2.5 to 3.5, depending upon the indications. Lab Interpretation (test code = 64856-4) [facility] - Code Lyglja4561-94-20 03:00:48* Test Item Value Reference Range Interpretation Comme nts PROTIME PATIENT (test code = 5964-2) 10.4 10.1-12.6 INR (test code = 6301-6) 0.9 Normal INR <1.1; Warfarin Therapeutic range 2.0 to 3.0 or 2.5 to 3.5, depending upon the indications. Lab Interpretation (test code = 74992-0) [facility] - Code Wwwodt8273-48-04 03:00:48* Test Item Value Reference Range Interpretation Comme nts PROTIME PATIENT (test code = 5964-2) 10.4 10.1-12.6 INR (test code = 6301-6) 0.9 Normal INR <1.1; Warfarin Therapeutic range 2.0 to 3.0 or 2.5 to 3.5, depending upon the indications. Lab Interpretation (test code = 43397-4) Normal [facility]Pro[facility] / IN[facility] - Code Xwczdh1550-48-20 03:00:48* Test Item Value Reference Range Interpretation Comme nts PROTIME PATIENT (test code = 5964-2) 10.4 10.1-12.6 INR (test code = 6301-6) 0.9 Normal INR <1.1; Warfarin Therapeutic range 2.0 to 3.0 or 2.5 to 3.5, depending upon the indications. Lab Interpretation (test code = 73559-3) [facility]Pro[facility] / IN[facility] - Code Sfqnel6058-40-31 03:00:48* Test Item Value Reference Range Interpretation Comme nts PROTIME PATIENT (test code = 5964-2) 10.4 10.1-12.6 INR (test code = 6301-6) 0.9 Normal INR <1.1; Warfarin Therapeutic range 2.0 to 3.0 or 2.5 to 3.5, depending upon the indications. Lab Interpretation (test code = 17841-1) [facility]Pro[facility] / IN[facility] - Code Vwjhob8457-13-13 03:00:48* Test Item Value Reference Range Interpretation Comme nts PROTIME PATIENT (test code = 5964-2) 10.4 10.1-12.6 INR (test code = 6301-6) 0.9 Normal INR <1.1; Warfarin Therapeutic range 2.0 to 3.0 or 2.5 to 3.5, depending upon the indications. Lab Interpretation (test code = 38267-1) [facility]Pro[facility] / INR - Code Mashwn5886-02-28 03:00:48* Test Item Value Reference Range Interpretation Comme nts PROTIME PATIENT (test code = 5964-2) 10.4 10.1-12.6 INR (test code = 6301-6) 0.9 Normal INR <1.1; Warfarin Therapeutic range 2.0 to 3.0 or 2.5 to 3.5, depending upon the indications. Lab Interpretation (test code = 60657-7) [facility] - Code Peqjuh8011-05-55 03:00:48* Test Item Value Reference Range Interpretation Comme nts PROTIME PATIENT (test code = 5964-2) 10.4 10.1-12.6 INR (test code = 6301-6) 0.9 Normal INR <1.1; Warfarin Therapeutic range 2.0 to 3.0 or 2.5 to 3.5, depending upon the indications. Lab Interpretation (test code = 13527-0) [facility] - Code Azudej6446-44-86 03:00:48* Test Item Value Reference Range Interpretation Comme nts PROTIME PATIENT (test code = 5964-2) 10.4 10.1-12.6 INR (test code = 6301-6) 0.9 Normal INR <1.1; Warfarin Therapeutic range 2.0 to 3.0 or 2.5 to 3.5, depending upon the indications. Lab Interpretation (test code = 22443-3) Normal [facility] - Code Lemodc0695-46-69 03:00:47* Test Item Value Reference Range Interpretation Comme nts APTT Patient (test code = 3173-2) Lab Interpretation (test cod e = 35299-3) Normal [facility] - Code Cqamcf3710-51-88 03:00:47* Test Item Value Reference Range Interpretation Comme nts APTT Patient (test code = 3173-2) 36 Lab Interpretation (test cod e = 73639-1) [facility] Trjllp8754-88-60 03:00:47* Test Item Value Reference Range Interpretation Comme nts APTT Patient (test code = 3173-2) 36 Lab Interpretation (test cod e = 03356-8) [facility] - Code Dhtykx4218-11-50 03:00:47* Test Item Value Reference Range Interpretation Comme nts APTT Patient (test code = 3173-2) 29 -36 Lab Interpretation (test cod e = 04632-7) [facility] Hdvjpc7887-81-08 03:00:47* Test Item Value Reference Range Interpretation Comme nts APTT Patient (test code = 3173-2) 29 -36 Lab Interpretation (test cod e = 89435-7) Normal [facility] - Code Ibslag1254-53-47 03:00:47* Test Item Value Reference Range Interpretation Comme nts APTT Patient (test code = 3173-2) 29 -36 Lab Interpretation (test cod e = 85197-7) Normal [facility] - Code Dozvel1954-79-61 03:00:47* Test Item Value Reference Range Interpretation Comme nts APTT Patient (test code = 3173-2) 29 -36 Lab Interpretation (test cod e = 36677-3) Normal [facility] - Code Yjntyk4376-83-40 03:00:47* Test Item Value Reference Range Interpretation Comme nts APTT Patient (test code = 3173-2) 29 -36 Lab Interpretation (test cod e = 29716-1) Normal [facility] - Code Tgotyt9459-89-10 03:00:47* Test Item Value Reference Range Interpretation Comme nts APTT Patient (test code = 3173-2) -36 Lab Interpretation (test cod e = 88520-2) Normal [facility] without Diff - Code Quovun0787-62-20 02:52:09* Test Item Value Reference Range Interpretation [...] 367 166-358 H MPV (test code = 31464-0) 11.3 fL 9.5-12.9 RDW-CV (test code = 788-0) 15.4 % 12.0-15.5 RDW-SD (test code = 27813-0) 43.8 fL 39.0-49.9 NRBC x10^3 (test code = 6897609031) See_Comment [Automated messa ge] The system which generated this result transmitted reference range: 10*3/?L. The reference range was not used to interpret this result as normal/abnormal. NRBC/100 WBC (test code = 3939536502) 0.0 0.0-10.0 IPF % (test code = 7506425028) Lab Interpretation (test code = 00685-8) Abnormal [facility] without Diff - Code Lsfcxc0657-34-36 02:52:09* Test Item Value Reference Range Interpretation [...] 367 166-358 H MPV (test code = 29448-0) 11.3 fL 9.5-12.9 RDW-CV (test code = 788-0) 15.4 % 12.0-15.5 RDW-SD (test code = 48280-7) 43.8 fL 39.0-49.9 NRBC x10^3 (test code = 5291654846) See_Comment [Automated messa ge] The system which generated this result transmitted reference range: 10*3/?L. The reference range was not used to interpret this result as normal/abnormal. NRBC/100 WBC (test code = 8447496084) 0.0 0.0-10.0 IPF % (test code = 5558545218) Lab Interpretation (test code = 83965-6) Abnormal [facility] without Diff - Code Ugvewp1984-43-24 02:52:09* Test Item Value Reference Range Interpretation [...] 367 166-358 H MPV (test code = 74938-2) 11.3 fL 9.5-12.9 RDW-CV (test code = 788-0) 15.4 % 12.0-15.5 RDW-SD (test code = 41648-7) 43.8 fL 39.0-49.9 NRBC x10^3 (test code = 4202420995) See_Comment [Automated messa ge] The system which generated this result transmitted reference range: 10*3/?L. The reference range was not used to interpret this result as normal/abnormal. NRBC/100 WBC (test code = 1910680330) 0.0 0.0-10.0 IPF % (test code = 4693705751) Lab Interpretation (test code = 31246-9) Abnormal [facility] without Diff - Code Cibxyf8793-26-24 02:52:09* Test Item Value Reference Range Interpretation [...] 367 166-358 H MPV (test code = 19477-5) 11.3 fL 9.5-12.9 RDW-CV (test code = 788-0) 15.4 % 12.0-15.5 RDW-SD (test code = 74547-3) 43.8 fL 39.0-49.9 NRBC x10^3 (test code = 4170664440) See_Comment [Automated messa ge] The system which generated this result transmitted reference range: 10*3/?L. The reference range was not used to interpret this result as normal/abnormal. NRBC/100 WBC (test code = 4366857924) 0.0 0.0-10.0 IPF % (test code = 6110587943) Lab Interpretation (test code = 67832-6) Abnormal [facility] without Diff - Code Gdufev2823-01-11 02:52:09* Test Item Value Reference Range Interpretation [...] 367 166-358 H MPV (test code = 68178-7) 11.3 fL 9.5-12.9 RDW-CV (test code = 788-0) 15.4 % 12.0-15.5 RDW-SD (test code = 94577-7) 43.8 fL 39.0-49.9 NRBC x10^3 (test code = 3481658470) See_Comment [Automated messa ge] The system which generated this result transmitted reference range: 10*3/?L. The reference range was not used to interpret this result as normal/abnormal. NRBC/100 WBC (test code = 6211481473) 0.0 0.0-10.0 IPF % (test code = 9290421154) Lab Interpretation (test code = 57388-1) Abnormal [facility] without Diff - Code Entrjt0988-21-50 02:52:09* Test Item Value Reference Range Interpretation [...] 367 166-358 H MPV (test code = 46007-4) 11.3 fL 9.5-12.9 RDW-CV (test code = 788-0) 15.4 % 12.0-15.5 RDW-SD (test code = 55811-0) 43.8 fL 39.0-49.9 NRBC x10^3 (test code = 5498145475) See_Comment [Automated messa ge] The system which generated this result transmitted reference range: 10*3/?L. The reference range was not used to interpret this result as normal/abnormal. NRBC/100 WBC (test code = 0196097640) 0.0 0.0-10.0 IPF % (test code = 5282246393) Lab Interpretation (test code = 71698-5) Abnormal [facility] without Diff - Code Urdwpl8531-17-01 02:52:09* Test Item Value Reference Range Interpretation [...] 367 166-358 H MPV (test code = 34653-1) 11.3 fL 9.5-12.9 RDW-CV (test code = 788-0) 15.4 % 12.0-15.5 RDW-SD (test code = 09770-3) 43.8 fL 39.0-49.9 NRBC x10^3 (test code = 2587053906) See_Comment [Automated messa ge] The system which generated this result transmitted reference range: 10*3/?L. The reference range was not used to interpret this result as normal/abnormal. NRBC/100 WBC (test code = 8755597896) 0.0 0.0-10.0 IPF % (test code = 6128972418) Lab Interpretation (test code = 99195-1) Abnormal [facility] without Diff - Code Ujsvjb4903-55-81 02:52:09* Test Item Value Reference Range Interpretation [...] 367 166-358 H MPV (test code = 62588-8) 11.3 fL 9.5-12.9 RDW-CV (test code = 788-0) 15.4 % 12.0-15.5 RDW-SD (test code = 94317-7) 43.8 fL 39.0-49.9 NRBC x10^3 (test code = 3198106718) See_Comment [Automated messa ge] The system which generated this result transmitted reference range: 10*3/?L. The reference range was not used to interpret this result as normal/abnormal. NRBC/100 WBC (test code = 4965757720) 0.0 0.0-10.0 IPF % (test code = 8848524584) Lab Interpretation (test code = 03428-4) Abnormal [facility] without Diff - Code Qhihuc0899-61-58 02:52:09* Test Item Value Reference Range Interpretation [...] 367 166-358 H MPV (test code = 82626-6) 11.3 fL 9.5-12.9 RDW-CV (test code = 788-0) 15.4 % 12.0-15.5 RDW-SD (test code = 86688-7) 43.8 fL 39.0-49.9 NRBC x10^3 (test code = 5603095604) See_Comment [Automated messa ge] The system which generated this result transmitted reference range: 10*3/?L. The reference range was not used to interpret this result as normal/abnormal. NRBC/100 WBC (test code = 0717561427) 0.0 0.0-10.0 IPF % (test code = 6863396873) Lab Interpretation (test code = 37461-3) Abnormal [facility] Glucose (Age >30 Days) - Code Stroke 2023-06-08 02:39:00* Test Item Value Reference Range Interpretation Comme nts POCT Glu (age>30days) (test code = 3342) 124 mg/dL 70-110 A Lab Interpretation (test cod e = 75771-5) Abnormal [facility] Glucose (Age >30 Days) - Code Stroke 2023-06-08 02:39:00* Test Item Value Reference Range Interpretation Comme nts POCT Glu (age>30days) (test code = 3342) 124 mg/dL 70-110 A Lab Interpretation (test cod e = 28364-1) Abnormal [facility] Glucose (Age >30 Days) - Code Stroke 2023-06-08 02:39:00* Test Item Value Reference Range Interpretation Comme nts POCT Glu (age>30days) (test code = 3342) 124 mg/dL 70-110 A Lab Interpretation (test cod e = 78627-4) Abnormal [facility] Glucose (Age >30 Days) - Code Stroke 2023-06-08 02:39:00* Test Item Value Reference Range Interpretation Comme nts POCT Glu (age>30days) (test code = 3342) 124 mg/dL 70-110 A Lab Interpretation (test cod e = 42365-1) [facility]Age >30 Days[facility] - Code Stroke 2023-06-08 02:39:00* Test Item Value Reference Range Interpretation Comme nts POCT Glu (age>30days) (test code = 3342) 124 mg/dL 70-110 A Lab Interpretation (test cod e = 72756-8) [facility] (Age >30 Days) - Code Stroke 2023-06-08 02:39:00* Test Item Value Reference Range Interpretation Comme nts POCT Glu (age>30days) (test code = 3342) 124 mg/dL 70-110 A Lab Interpretation (test cod e = 30246-3) [facility] (Age >30 Days) - Code Stroke 2023-06-08 02:39:00* Test Item Value Reference Range Interpretation Comme nts POCT Glu (age>30days) (test code = 3342) 124 mg/dL 70-110 A Lab Interpretation (test cod e = 41033-3) [facility] (Age >30 Days) - Code Stroke 2023-06-08 02:39:00* Test Item Value Reference Range Interpretation Comme nts POCT Glu (age>30days) (test code = 3342) 124 mg/dL 70-110 A Lab Interpretation (test cod e = 13356-5) [facility] (Age >30 Days) - Code Stroke 2023-06-08 02:39:00* Test Item Value Reference Range Interpretation Comme nts POCT Glu (age>30days) (test code = 3342) 124 mg/dL 70-110 A Lab Interpretation (test cod e = 31174-9) [facility] Kzszl1514-96-07 19:59:01* Test Item Value Reference Range Interpretation Comme nts FERRITIN (test code = 4074169550) 22.4 ng/mL 6.0-137.0 ZAINAB (test code = ZAINAB) Biotin has been reported to cause a negative bias, interpret results relative to patient's use of biotin. Lab Interpretation (test code = 62354-7) [facility] Kjisk5316-89-08 19:59:01* Test Item Value Reference Range Interpretation Comme nts FERRITIN (test code = 6055353000) 22.4 ng/mL 6.0-137.0 ZAINAB (test code = ZAINAB) Biotin has been reported to cause a negative bias, interpret results relative to patient's use of biotin. Lab Interpretation (test code = 20067-4) Normal [facility] Sdajx1993-34-36 19:59:01* Test Item Value Reference Range Interpretation Comme nts FERRITIN (test code = 9295771328) 22.4 ng/mL 6.0-137.0 ZAINAB (test code = ZAINAB) Biotin has been reported to cause a negative bias, interpret results relative to patient's use of biotin. Lab Interpretation (test code = 31374-6) [facility] Svuov0269-65-76 19:59:01* Test Item Value Reference Range Interpretation Comme nts FERRITIN (test code = 7433292110) 22.4 ng/mL 6.0-137.0 ZAINAB (test code = ZAINAB) Biotin has been reported to cause a negative bias, interpret results relative to patient's use of biotin. Lab Interpretation (test code = 21309-6) [facility] Dwdtk7992-52-44 19:59:01* Test Item Value Reference Range Interpretation Comme nts FERRITIN (test code = 4392955480) 22.4 ng/mL 6.0-137.0 ZAINAB (test code = ZAINAB) Biotin has been reported to cause a negative bias, interpret results relative to patient's use of biotin. Lab Interpretation (test code = 69135-4) [facility] Jxapk4624-49-54 19:59:01* Test Item Value Reference Range Interpretation Comme nts FERRITIN (test code = 6412734361) 22.4 ng/mL 6.0-137.0 ZAINAB (test code = ZAINAB) Biotin has been reported to cause a negative bias, interpret results relative to patient's use of biotin. Lab Interpretation (test code = 71965-8) [facility] Lpajz2665-64-97 19:30:52* Test Item Value Reference Range Interpretation Comme nts IRON (test code = 1582733136) 54 ug/dL 50-160 TIBC (test code = 8673600332) 434 ug/dL 250-410 H % FE SAT (test code = 9554341615) 12 % 20-50 L Lab Interpretation (test cod e = 92013-9) Abnormal [facility] Diivw4678-59-76 19:30:52* Test Item Value Reference Range Interpretation Comme nts IRON (test code = 4653259320) 54 ug/dL 50-160 TIBC (test code = 2165874909) 434 ug/dL 250-410 H % FE SAT (test code = 2689891342) 12 % 20-50 L Lab Interpretation (test cod e = 21911-5) Abnormal [facility] Awukw5665-48-06 19:30:52* Test Item Value Reference Range Interpretation Comme nts IRON (test code = 5723689306) 54 ug/dL 50-160 TIBC (test code = 5362119549) 434 ug/dL 250-410 H % FE SAT (test code = 6827079760) 12 % 20-50 L Lab Interpretation (test cod e = 51486-3) Abnormal [facility] Tlkop0951-40-06 19:30:52* Test Item Value Reference Range Interpretation Comme nts IRON (test code = 6640007131) 54 ug/dL 50-160 TIBC (test code = 0993841385) 434 ug/dL 250-410 H % FE SAT (test code = 5287104576) 12 % 20-50 L Lab Interpretation (test cod e = 87837-0) Abnormal [facility] Ldcww7066-37-43 19:30:52* Test Item Value Reference Range Interpretation Comme nts IRON (test code = 8654907202) 54 ug/dL 50-160 TIBC (test code = 1613393989) 434 ug/dL 250-410 H % FE SAT (test code = 5938233294) 12 % 20-50 L Lab Interpretation (test cod e = 81309-0) Abnormal [facility] Aaozd7742-22-92 19:30:52* Test Item Value Reference Range Interpretation Comme nts IRON (test code = 8566571199) 54 ug/dL 50-160 TIBC (test code = 5195369105) 434 ug/dL 250-410 H % FE SAT (test code = 9004637358) 12 % 20-50 L Lab Interpretation (test cod e = 76503-2) Abnormal [facility]2023-12-11 20:01:05* Test Item Value Reference Range Interpretation Comme nts [place] (test code = 3505827453) 0.5 mmol/L 0.6-1.2 L ZAINAB (test code = ZAINAB) Toxic Range: ? Greater than 1.2 mmol/L Lab Interpretation (test code = 18055-9) Abnormal [facility]2023-12-11 20:01:05* Test Item Value Reference Range Interpretation Comme nts [place] (test code = 7009690152) 0.5 mmol/L 0.6-1.2 L ZAINAB (test code = ZAINAB) Toxic Range: ? Greater than 1.2 mmol/L Lab Interpretation (test code = 76893-2) Abnormal [facility]2023-12-11 20:01:05* Test Item Value Reference Range Interpretation Comme nts [place] (test code = 1259485507) 0.5 mmol/L 0.6-1.2 L ZAINAB (test code = ZAINAB) Toxic Range: ? Greater than 1.2 mmol/L Lab Interpretation (test code = 28202-2) [facility] [id number] 19:23:05* Test Item Value Reference Range Interpretation Comme nts Case Report (test code = [id number]) Surgical Pathology ?Case: [id number] ? Authorizing Provider: ?Dominic Keita MD ? [...] HPylori ? Final Diagnosis (test code = [id number]) r1haiQNpRXXvm8nzSFIzfZ FuZzEwMzNcZnRuYmpcdWMx BPmronSxDUruhJjcNDW6WB VjKJ3gqNgqaUo1wDaaPIRz jgT8fFRmKMxul2shMPT2d5 gcwpdaQHZcJRraYt4iyGKz fQuaXoRpNVPfMVe5sH37OM EcnX4ygKAlZVr9KMMyqGYe tbRbLkGhKKAsmXAjzKN3MV BrLY8kpslrLPrmWYdeDBCw aaO5NHPkjUZoK1OeBRIxTS 4kpldnBKA2ADqvJRLaNTU0 KeJfLVMau8Nqfuf6UkOooN FyZFxwbGFpblxmczIwXHBh roBJYxXNVN7FBZBECLWSM6 sXZJATPO4PVHNHErdlwHQu UYPyKJQnIADWUW6OHLBfI4 hQQlJtQL0PBTJsEXCvtLCh YVQsghDAWsBYRL6AYU4SHU wgQklPUFNZOlxwYXIgICAg MXCfXMfRK6TUZUBlEQUKU4 KICGjVKWksMe4fAJWFEK9P Q5lDP6JUKHJWVW2EFLfbGZ TjRWKwVRTfFT1YSWfpIEGE UJ3VAZHIXVNHVKpZARKLUP CVRSdBYJUTC1EEFAgYJDUr glrtIDExIi9lV4VFOBXPSK wgQklPUFNZOlxwYXIgICAg IZYnPHQJF8JTXtAWLO4KI8 9AGXRMQTNTTD0TROWKKNwL CC9JQFZTALEDIGEAA8KweZ FyICAgICAgLSBOTyBFVklE EM6YJBJHRwQMDSuKDOLePV lTRUFTRVxwYXIgICAgICAt ZB2JZPbvCEOORF0PNDDDEq dBTklTTVMgSURFTlRJRklF HZOMNRNKCY7MBn1EABIBBu xwYXJccGFyfXtccnRmMVxz j9MsM1EfHzHdDJdtlwZeQF LhLhfjffvbALAiSKC4wuLf WUUvSUctZNYmGXzkUf5isK XzeTewBlTdXMYqu7zbmoAZ GLalEpVuM871SICqYQczz7 hnm7IyVZHyzYDao2L5SMRO lxkwvNk5z6bwNfSfBfU9bR JpUAeuM4munmRzfWJyW0Zc pVWajIo8wMfgQ58ev3F6Ad ptW8euLCWwYORoC5NdZZ9g IGCmJnc4INW4ZHZ1XKJbPR NcS6GcSF9sRMSnoAFvULb4 e6opfZedMYHcYUZ9p4raQB pgtbY2RX3edv7xwFu1g6qh czEgRGVmYXVsdCBQYXJhZ3 BkhUfeXj9fkLs5tChrPnfb FFZ7Kkr2VN0lsu68lbg3pP jyJIWfupwmCpM4ENwuDJNp dfpqEWy9IWadXUFkyKP9LZ QmvMDlJ0UiYAYwCK1dotd0 HGB2JIejCGAlYyS8XJRpfO NxVFUjpSoeQRtdc105CLH6 NeAdGQ4qF8Qxb9H0lL0bwD IuPVPjeCEzNeQxHJJpxm6d pZEnQPfty3LlLKO8xsP9lP TpsIGyUOQaMG17Dctey5Mx HeyoJNK7BTCbdkFlx2Jnf6 cyQnUuwoKkA7zeV9GmYOJn TXIaGACqZlTcmeWll4Xbl6 XrqAWvxJw6u2dlZYJsFQNw mCuct2duOPE6HMHfR6M4wE Dsm7nuEVvhUPWvnPR8mvU7 DLBqhGVxJ1QomS3gCDGvBS 4dioe1x6ohMSP3CJyvTPAj IqQ6ayQ8CPOpySGcXYPazF oqDLbzo163ORY4MxNtMWXf w9HvD4XsbCphH36sqTdiM3 6cCEYrmAhxrQ6iaGladH6w ZjBcZnMyNFxxbFxwbGFpbl xmMVxmczIwXGxhbmcxMDMz MQnzM4foHxUeDFQacMaiRJ qig3QxDQOxKPRyWavmzoWo XHBhciBJIGhhdmUgcGVyc2 9uYWxseSByZXZpZXdlZCBh iSrgb5ViA2biTC2fD7KyqQ VaytSxtaSdVHnpTCArs6a9 yWDemFyqh2LbnHGeEL37kq DxLPMeSKB6QHXxr3puVW86 ylgnJdUjhA73qgOjikCuLF Xoa6nhM4nkqWLla2Eaw6Xm ijRhHLzxn4SoIM4lnMClzm kdaUX7ZSPkqTMociEuslX3 xFceVKZayK5dhG5uoIiaqV 5oQvVnDvJnZIviJA2dPTXj O0iwwUFvWMEcSIMcF6mfTp BmxV3byVlzMnbehtG2CGXf cn19 Clinical Information (test code = [id number]) Shivani Schuler is a 47 year old female with IDA1. Gastric polyp x 6 r/o adenoma2.Duodenal Bx, r/o Celiac disease 3. Gastric Bx r/o HPylori Gross Description (test code = [id number]) t3rthXZoOSXblUFPUHN6KN CdVJ4jnIltfCt9sPnkYUBb ooL7cWUaVSmxk1tiEEH0z0 jlnhZLBdmaCMKxKB7dWNln MNEnYS2kIwGvAUOaHeXiFI BhcGVydzEyMjQwXHBhcGVy fOT0NJTmWQ7ymexpMWhsSP vnXCGruoJ0UAAggITiT3Va EMYvXX2hqnrxWLI8ZOQRWw urIt0jpPZbhClhYdMtCkPt YXJzZXQwXGZuaWwgQXJpYW e2dL1OSlxjZJF9HZOVSddt PahobQguq8KtyUIiRECsZP xcaWQgNTEwMDAgXFxkYiBP WiZpRxN1Kes0KXU0PiZ5XY g7ZTMSJHIjKinvGBL6YcT0 LPm1EHKaPZ2qURivgGCaYG qyHxldDJizI654OXvcELZa J7DdB8FqTGprOjRkATnfNC CtDMUhWMenCPHvX6GPHQTg XUW6HvHaEOBvMOs0TJkmG9 GFJAJyPFSfWaK5SBHcFnZ2 JHy7SMHMZg4zAKjvEuDqWI d0VPU9TMr0InQzUJEdJlAt EQMxGIImDIepqOYjNJ7knU yyCVRsEQ9JZBPxOFruLXTt ZsFyH5AWN7hIJW3aGFqubM JjaFxmczIyXHBhciANClxw PNYcMS5DFRFlSWsvEDn2ut BbDCZmLuDvHXRcU08yz4UI b4FsOY3OKZr7qqUhlypcoG 0aLGTbgvPwVXyRrERjlA0u vgEPEIsoWNKoL5TqcpKnPV ltPUQuaj1bsFfiLFsvBtGx bGVkIHdpdGggdGhlIHBhdG dnboGuL7M6yyZaLN2yXXKV BTAcrG4mHRAgSCAjb3JhhE RveLoaC2DraNUsCcXin6l1 eVE8BXCumfPwIJOyxQOmXM Fela5bDJcnDvPcC7R9WWOn GVBqk93sbCW4knLcKcGudH h7rPVoYOL0FE7wfVciqlKt j1c4bR9qEILti5Z3FHGhz8 K8NDVpmxGraOTmxWYsCACc RQ7furSpEG64AKMjZVyxNJ wyPDA6QXM6CZLseBXcs1dx ulpqXg9uBAcjCZ2yVFaaHU 12MAFkXXajDIAzB3ZwN7Q1 IGdnOBEwVKOldTGkhC6jyd EntiTlmYu8ZZDdADD3cWEq cCmzJUBvKyclcIE6IEGeBo AxfmEid1XghKy1lNEuNFwa GVXyuO1loW7xBOLtSXAukc CAEkfvBXDrWUzvw9BxUShi cGljWHNhMzAgDQpcZXBpY0 1zj5EOx8Gae9oilNwrb9He oVRlRH0iwDTcOY0Mr9ghYE JcgCCcTFR0HWrrf5oyCYgg AFE9NDKlCkLqLTFgNS2RNi NxAMinBXv2IKxkUBi4HVt9 ZK4YJxKqTNWoKpi7WsC5Tz WrQVt3QMcmAS3CXIM8EMYd EQJsZWfjJKS9AFFmOYi8VT IgXFxzcyAzIFxcZmwgXFxu D67plLRfBVdjBuWbQUbyhB etPBRtAHS7PJ5RWIYtTcXs X0GNC1pPIY4cVvmmwaMeMS TfewYGRhjeDBEnKT8GLFEt FCbhFIl3ovUzCJOrYlUdCL XyJ15uv7JHu8CpYC0QKMb7 wzLolsmtfH1tSXDsowPkn6 IzMFxlcGljWHNiMzAgDQpT gGRyzP4hqzBTUCuuANKfA3 WnjfPsOHwzFRWtpp6qkKhh IGxhYmVsbGVkIHdpdGggdG rnZRZfaVjplkGfF1Y9avVs NZ2oMMDJWSDboO8bYMNjMW HnIGQzRKRrcY3xPDO8q0Oe jgKzFMPUSAVuoHssCK63wS BjZWxpYWMgZGlzZWFzZSBh kqKvtlZdl62dhxWzm9NbYY 5ehDszOSpEPKpbCpLcND8n WMCammPay8GpAV6rLWEonD XaRPOofdohzKEoFTc0fOOv JCPbKoWcxPfub9YmKVKmLL oqPL14upSvAQ2lIMpoZK1x JKqwLG4zHHAjELCsGFEwVh BsqNHkNxQvfGFeCtUiD54o FwKIgVWvn3WsT2xkUZ1qqA HhOkmppOKaQBKqwNwhf0Oa xQBpTSOzw2EzuCRxEOkaKF 2wPSX8Nt8oxSWfWNDyinY1 t0YqXStfUBCwSkoyUITtWS heb1GfPLRguONLr5PwEE3S XHBhciANClxzYTMwXGVwaW JOw7MpNERZQtdumVznVzKx sIVsWoX2EWTzsIWsCNK6KI 6byVebXPMvNEo4HYndKYXr N7TqT7TiOQoiVdWmOCpsXZ AsMTYoEIouFCYkG7ICGPMn MII0NlZbNSPuXKa1QOhhL1 KMFFJcMWEjRiY1UIV2OxY8 ZPv3MMQXEt7rEKgqVhMqDM UyOwS1RSo0TwLyLPEmUiKc LZMnPFHcNClhvVJfXX5wqW mwQPJkPBJaGBO6TARyiFCH a0IiHQFfYFogQiRoHMCIAC RLYY0EQhIZPGKoAkAkvNLx YU6QLCRpnzGqOZperFovkI 4dsAUnL0txSdWpBufdeNbq TmVzdERvYzEgDQpcbHRycG FyXGxpbjBccmluMFxzYjMw SAOhdUDYa4KvAVJTKwJhIW NpbWVuIEMgaXMgcmVjZWl2 YFDkuS0rOb1teVUjbB8idI JfZWddHTGnl4v9lPJ9yJUi kIL1iCEzkSbzYtJdKO3xbI PmQHKCHU82eAUhvcPxDGTd vJ4hDDFwYJRiEVY8ksjjAR QTVTR2wIVwx5S5KWvhPUW6 wW0nyPukJmMyF9U7RZTqHG Dbx60aoXJ2naEwVfUbYODx xb8cuY1iTLyymoOotPavib Cxd7Z9QKJru4Y4BEHzfjYw nHUwmMOkQPOsKrP6WVSvNu V2ILPgFXYnyJUuPVNkAY6l VGhlIHNwZWNpbWVuIGlzIG VlyWNhcuHxMSWfgf60N7kd TREeaY5nw2lgDzXyIJBzCK IgzSPtkIG6HFAhyR3jhZ14 iaHntvNJOG6mmKJpMD9YMK NiMFxlcGljWHNiMCANClxw PPGkRKleq5IhGEatkAvsNZ QcDtTzVKdWlDrjTLBCY1sy pIJgJLnuCAKHRJvBA8WTLQ 0POJRlhFEGTBT4NJ6eKPuv GYQdE2GxC1NamsV4c2pcwH llp4UsgVDeHY9lvZBsBQ4M XHBhcmQgDQp9 Disclaimer (test code = [id number]) w8zshCGtISCzj9cdATXjhH FuZzEwMzNcZnRuYmpcdWMx WKawzoAaCOryq3GdN4FkIm AwMFxhbnNpXGRlZmxhbmcx PXFzDMD7gdNwWHRiXTyhYF UxXDvxUq8zlIFroRkyJoXo FXFxj5yngoOEOHcyIsJnG4 77KIJhCOrta4ibo3DuSTHg qYSxj0Z0MRLCcacalXc1oI nfO22gl2C0TmpkE4oqEDJq XZNnO1SxAH8dWOChTlg6KM X9JIB6JISyIDZiE9CbRA8n JLTlhXDaASf3g1hnrOshPA AgIBH4v1anXRbrwnMlXW1b ft8dsNd7c3ncplVtTECaMG EwmFURLYMtQ2FwtHncAf0w bAo0hLyfGrvjHVA5Zjt2XX 1far70uwu7wPyvANFzrttt UdJ0PDabGVPmdoasVUy0TR npIDSdtUI3TVEaoYBxY3Px YUZfXI2eyqo4SUZ9QArxEC NjGbH0FZDpmFMtBUSwaRjj ZGtap126XJE2VbUsAT8dS2 Epe1Z3pQ2lhNNwCFQivSPi OgLkRJUiud8nfTKgKNotm1 XrZXS9wyL6qRRvnNGjEETq CK11Onrlz8AdNhdkr3RyS6 4ffAN5HMpif1xlGW5rLcC9 hjHnJQyrk1bljH2lUaO0SI gnJM5dGG5pQKHflF0gfiap XHBnYnJkcmhlYWRccGdicm JmBl2wsCziMMH3SJlvC2cg oS1iDnB9WEsaD0rduQ3fCP i8LGkkxHF2YLTplD3eFP7u hcmlv2xuOSxcXGouNSWqtm B1fhY7PZVruWPbG9VgzL4d MVJwYS1sqionk8hfMJX3AM dnMTDdUIZ6IcEiUGOrl1Cm wjw4CqEpb6UcyYKvAMymA3 0rs623NUCrjjLxF0qffBLs knytaTIngbbyXVzlhxA9WL AzjdSec9AhZKPrEAO4QEtb NIitbSFlRRIbdKaxs4dcI3 RscGFyXHBsYWluXGYxXGZz MjBcbGFuZzEwMzNcaGljaF dkHHhjJpRpZKWmIRhxJ1pm MdYuP4HiWAAfBzEtzBAjD2 ggVGhpcyByZXBvcnQgbWF5 JQpiB4p2WMIxrvCglKh9kn XlDkYoGFUzTPK2HIiqfNMr SOWmh1PntrsnnOWuNa6vmA LoBCUikF3qUDNzCIAlBHpl QV6htSz7SWWBsGPhvCBlYs AILCKkQY01zpZyWKUWbiae s2M8ALdrNMQnk0SkjBUyJ8 dkl0TrHWNko59wNQ9lq2O1 n7omTVC1QC0zb5JnASGxuN KupJHvDKItn4Vkxmmaj6Xx AROngpVos4BhKESmwoCvlE DeGREefnIvpa6nenCjSORy MIMpJ2KncusztSvklaHuAV Mzgg1oukNdDYN5OYDUASMi MNLvt9AmbS8xpQPHYBC4hP Ksdm2iyrWZxLKfTZGqba39 XCUpJA3vA7ouYJLnWOHfss JvkURjs3XeUGHbkGI8mILx AD7WSkURg89gLQGjQNCPta MkKOFduFmlcZJ8cuW4jR4s IChGREEpLlx+IFRoZSBGRE IgHS9tmyNoh7RgzxDmyFql ITRzrCLsm8CvbPWvm7JzyY hsj8TzoXBozAMaNI4pPGYe clxwYXIgVVRNQiBMYWJvcm H3r8QeMIIjIVDhFUO4nGgl arj8NLJsaL0lTPXwH0zxml mnNXrwLPOvz0TfzX1zzYBC kNWmj5LndZPfhICIiZNuLZ 4vghNjXUmJQOyQOHZ7oiAj ZPJqc8VkGSniI8teP02shZ npqNj6iUI6OYQ9vY4lKcd+ IFxwYXJccGFyIEFwcHJvcH UrHJPkeNpmrpLmM5JupgCc cA2gsUUcjuZjZZ5dGT0qT4 S9iKEcDHEmyeYxf9nzNDbd dmUgYmVlbiByZXZpZXdlZC Mad2MfWJchJUW6DTdpkhMk bmNsdWRpbmcgSCZFLCBTcG QlrTJgYDL9MNsbanHdgyKs ES6prM5riIyyoV9dmEUbpG P1ysutAZByKLTbzHvtZHYu GT8wrIwsvU8rTkUaLvQlBE osRM7wQJGqL3dxhMBhEYWf CYEnZ2svPhXkyH7neRhgEB xjZjJcZnMyMFxwYXJccGFy XHBsYWluXGYxXGZzMjBcbG FuZzEwMzNcaGljaFxmMVxk GzJjNVAcLIckF8hyHxUdI8 ZzEJZsTxJbrYOfB6kgETyg ZTV3KMJtNQ5pyRCdOC13yL Nub6aqUUzcjDkjve2yX75e sQClCRkjdGvoPNKzl63fl7 AiGMQzrsFcgl2hUWLckmD5 jZ4cSOGvgZsnYWEmrFMaCE Fgq6QjAKeeqCGkisBzBHks HNIeGOSzqXXafvA5ofGroz DxceDaKHQcoBcjQLKji6Co JQZfMYibl3Vjpv6ovIMwWF GavrZKuPxgzKEkmO1nL7Hf LVHjPUDesn6hYSAdaN7iUZ llx9CmweskSUXoHJWmFSVj fmWgpa1lATMukTMJMX0QST cykVChl0AntxLwO0rUMZQ7 NUQwNjYwMjgxKSBleGNlcH VaEVMxwn26KSCpdS1gzEio IOUpqS1kpZ3scFxlmS3zCa VeWuLsXOuuTD2xAQJgM6ej aXZpLBVqGBIfC2urGbKxeP 9jaFxmMVxjZjJcZnMyMFxw YXJ9fQ== Embedded Images (test code = [id number]) [facility] [id number] 19:23:05* Test Item Value Reference Range Interpretation Comme nts Case Report (test code = [id number]) Surgical Pathology ?Case: [id number] ? Authorizing Provider: ?Dominic Keita MD ? [...] HPylori ? Final Diagnosis (test code = [id number]) j1yadWVhODOnm4huFOKawD FuZzEwMzNcZnRuYmpcdWMx GWkkmtBrGUllgElcRTZ5ZQ DkXF0bwFddfSo0fDldQIGr skU8qDZxOHgws3moGPG6r9 oxvcgmRKPaZSwsZp2sjRCj qEwsPyElZGVeJZq4wQ62CT AdoI4ofJYyGDz7PYFdjTDf keNhCqQzZYNzjIMxsFN0PH QrGL2kkjobHMnaBYlyZBWx icK8VEPziQNoH5EqFQQyWU 8shnyxXKZ7HRqbJVKpNFC0 XhCqWOSrp9Wanmp0SeDdbM FyZFxwbGFpblxmczIwXHBh qqEPThHTHO0PFNJKPEDGE7 oYTWTBMY1DTDCROhrzwXOi ZMGxBKBuRKZDFF7GPOExY7 jKBoZbBM5XWDCgWFOwsQGj CZYyoeQFRvBLTB6EKK2PLG wgQklPUFNZOlxwYXIgICAg QKSvCHmPJ7CROBDyXVALO7 TEOGeOCLddUz5hABQWQO0M D0pLU1MFLSKWKO9TSDfmWL DpLBRtZNKyTQ0QGPaoEZVG HS8PWIFQOALMQTpQDSYHYU FWWQmCCQBWD2CBVVpHMGJl hcutCPLaOv3nB4MLMQPQQX wgQklPUFNZOlxwYXIgICAg LTFzKTTXA3EVLjUIBH5EQ0 6TCHZXQBXIZX9VOVSJEMtK ES1CAQYLVAEOFZSYE5YanT FyICAgICAgLSBOTyBFVklE UR2NOGTNKfBQKWlNHPKyIK lTRUFTRVxwYXIgICAgICAt QX8SFCthSKSUDQ4VARBZOq dBTklTTVMgSURFTlRJRklF WEKUWVZFIL4MAz3TLEYRRi xwYXJccGFyfXtccnRmMVxz h3FiM4PpTkCcFIfleqAwJO ZcIpordzhlXGSeMRV1jrAn BCKkFPdtVKLjDYurZi9igL PwpMqwMfSkKOQuj0qyysPX TOcgBuWtG777RCQgWAoih8 srj1SeVDOgcIDqx3N3CRFQ ngxucVo0p4yoEwTyXkG3oX YuBGtrM2krxdWloMEeF8Iv jREtbMf0iRlsJ79fx4F7Gp wbY9pwKESvWVKvR1FjRP5g QHFxVgu0AXK6KCZ8QFAgKG TkM6QuXI7kNSBjpTPxVYb6 k1yanKzmSBShIOX9v8haGJ habzW3SP4nox1ysUe7j6hb czEgRGVmYXVsdCBQYXJhZ3 HjcNheOm5hkDl5zPhqZheb QGC4Dfq9EL2tmb59qvz7vK jvOJVujildUzT8KDfwUCWt jemxJTm0NPhmKIMntKO6FH BlwIJgY6FvXDWyEX8nivv7 AAM6RTfxVUUnUlN2BMOywG NsJFXdlDedAUktm365SRZ6 ZkTxZE0rL3Bcw4J6lX7udB UnQVBpgRGbMeFjQDFlup7f bXMyFYhmn2AgSAB0bwO1sO VluQDaBERkTA42Swzul5Oz QrffYHE4QTCqceYjj3Wht8 qsWuLsaaUlQ0zwO6FzYOAp AWElTJLfIfQxfbXcb0Qjs1 PuqTCsfHz8y1vxIFWrBVOu rOpei1tkWKN9GLUwO5N0xI Grr4qhPGlmLRAqmKG8yiH3 SKFiwEArQ5UevJ4tHBZmMW 3ubpb4m7sjKVI6NPacVNCh HyG4qjN9QDKteNMnNPNujH tsQHfpy131DMD8XnYlZOPr t5YzP6YqyKwbR50mzGfqO2 3zHAKfgEkjiQ5glSlxbN7t ZjBcZnMyNFxxbFxwbGFpbl xmMVxmczIwXGxhbmcxMDMz WFsmN8tuIuXlRWNnoTbfDH tca7WhEGPeXQUeTocdpqDd XHBhciBJIGhhdmUgcGVyc2 9uYWxseSByZXZpZXdlZCBh qIcta0JlG0wvSW8fL5FkiM ZxwpRpfuQgZIzkMOHaq5y3 uHTilOfpl1GdxFCxVJ19yb ExPKLjPUQ0UPBqu6yqJC04 dfhzTvLghN73geLspqZaTV Muh3reZ2mniLLjb9Voz6Qn wtZpNAxqh9ZnSY2ilCIxjb hjfKT1YQUqpQYojmPthrY1 yIpxHQZpfZ3weF0lbAswsN 1pHvKxXwExBVbjVJ2xOLIy Y4pkkWGnSCJgLPEkS3ykVb KvkP8mwFbyRkazufI2NBXz cn19 Clinical Information (test code = [id number]) Shivani Schuler is a 47 year old female with IDA1. Gastric polyp x 6 r/o adenoma2.Duodenal Bx, r/o Celiac disease 3. Gastric Bx r/o HPylori Gross Description (test code = [id number]) z6myjGZuIYGscOSQYMF1HB JjPF2lhCcbzCm8dRhcFBHx hhH9sHFlAKnsi3wnAIN0h0 hpyqZPWlihXBGcCO4aLFbz NGMqQJ4jPbWrPJSlBfMwJX BhcGVydzEyMjQwXHBhcGVy jPF1ARUgUB3rjztgMMfpCO efHVNwgxQ5QKPotGXxR6Gg OWHuKA7vjtafNDB2CITRAm kaRs3qrTMmdFhwXzUuBsZm YXJzZXQwXGZuaWwgQXJpYW h1rW8SBhjqTOT5ATNXPlvw DyadgMezd6AhgZOcRPOkJH xcaWQgNTEwMDAgXFxkYiBP TeEaTsK0Mig4CXW0AmY7NT p3SLRZOPOmBjanQHC7LrR2 QQc8GBKtPP3bSNrejSLuUA ghUcguARepX675BOcgHGRj I2BwW6DzBQoaPjHdWPipPP JwVEWaJPqqYCWqX2TJSCRw TCQ3TkDzGILrXLd0PUclE4 LEBXCbHMTeZyI3GNRyFqZ3 LWy2EGJUNj6pFPjyFqZhEO f2HQS7JYs6IoImQHWsAeNz LYKvOLPePWxszPXqQA8fdJ lpNNGkMF2QHTDiMQedAZLy DaGiA2MZI3pWJS1bQMbgiQ JjaFxmczIyXHBhciANClxw SENtYI3HAFEiMAzmLVc1jr TmDXToBhUnBMCuF97oe5IJ u3JaEZ2YPTa5dcCtnhjkrF 5iKFGhybLcNRjSkDEcpO2d vbZZDJrtRRQgE9MpirJcGX hmFXDufd9hpAabTQvfZoXo bGVkIHdpdGggdGhlIHBhdG moatVzJ7P6gmAkRD9tOAPX SDBikY5iHJOrUJTnn1CrxQ DkvMcnT9TqoMXwJeBcc1t4 pZJ5DNOqvdZsJCKtzIUiAU Zfuw1oYVrxRaEdK8U2FBBm IEUnb49pqLC3yoKgUlPgqL k6gBQiVKZ1LK1vkFribsYj r6d3nF6mIRYyo9X0KOOpt2 H7YRQvivAvpDZvsSTpBPVi DC5vpdVrVD39JXHiFPaeHE cnEUE6YVZ0OCWvcLZht8ku klrpYt8uKDquVO2bMSocWP 10LFPqMUncCOBnH9KjB5H9 RMxkUPHhVXPraKZdoT2qus BmerPozSq6XRMdKMY8hDZs zTjySWXuFehocRX7ZXMcIv XfjmLbn4UrtKt3iQKeDFne VTGosH6bqQ5sWVWmKFNbtg EKDwjnYJXwTExyv2WjVSji cGljWHNhMzAgDQpcZXBpY0 2ha9ECs7Zre3odkHozn6Ld zQJiMG8cyDZpGE5Ai2aqGW WizHLuRJS9TSoho4jdGFpl BZU1GSYyQrKbDWQnJR1EIi TiRPakFMe6DJinRUj5STe4 UO9BLlSiVKVfFcu9XuG0Ws YdIJw4RFglLU8YRWD9MCXk NHJlCUoqJKI7GDWyRTw4VT IgXFxzcyAzIFxcZmwgXFxu T91tpAQtVNfaIfNqVJuohQ gpXPYcRKE4NZ7LPQFnNkFi Y3UXN3rMSZ2zAbftrnRaGW SttrMPUrydLOGnLV5LDVUh QUzhWHe0eyLqIVKiHgRzAQ LsX16ap9RFa4LdZM1TAZh3 pyHetfgybF9uRGXtbbRsa4 IzMFxlcGljWHNiMzAgDQpT wCHzzV5marPCXRylXBFkI6 BbffDaVXfcQWRsqu4bbVyj IGxhYmVsbGVkIHdpdGggdG xoFVYffEfjepTqC7Z6lfXp ZK8lEGXHGNBitB8bNJQyBF BpHZDlUFSgyN3gBLV8y8Ic xxJiJHUSDAGrgOrhWD06mX BjZWxpYWMgZGlzZWFzZSBh opBvtjBlf16vvrHeo1OaCL 2miKssBKdXDFflHyDiOL4k IOWavoOwa7RzPN5nXAIyrN LoCNUtnoilsAEvYVx1cKHh TKHqLkPfeCnph0TfBNJoXT wvMN62wuFfCK6aCAuxFM4n KBvfAX0oWPSnIQCoOMOcZz SfjSCqLzEbjGOcBaGhY72e KoQGyZYdq8NaL7dfVK8iyU OnPpwujGKcNPJvjBync5Vi bYQhSZJcu7TiaJOeRCnnES 9iYOO5Rn7joYObJMFmvcZ2 f2HyKSghVYSjMslsGLPiZK tpu3IcGFWcjCAXh9DhJA4O XHBhciANClxzYTMwXGVwaW AGa2KpGKKAZpievFcvBqWf nHDrGkS2BCLukGZyEDX2RC 1abIsyLVRvSGi6ZEqdBJWz P1OpZ8NnEOygBeGbRRhqIE CaYEPrIVpvBKQwA7UGISOg WCM8OeBuRXDbZQg8KQydR2 XWSZMmPWOuOrV2VKX5CtU1 RBe2BGAYLe4fZNssQyRfEA DhLzU9ZLa6OfTfDKPmMhLo OJLgUWIrIBzyiHQeTU3rrW jhEXTtKIWsIDT3FKGnvEDD v7TgLYWbPTxeXmFcCZLADO ZFFB7ONqRONUOwUuAtlNFk NP2UEHUobdNkKJxvjFxoaM 0deHHiW6wrReOfZivscNnu TmVzdERvYzEgDQpcbHRycG FyXGxpbjBccmluMFxzYjMw ZBXmsTHYx5TcVBKQNpXoMV NpbWVuIEMgaXMgcmVjZWl2 OVFygV1iPr2qlGMtrA4fcW JfWYmxOPQys7l1kCX2dKHr wNS7bIHnhIirCaNyRS4heH IaUCSJGH22fHSjrbBuLQRb zC0jLRKeVZXzEUI7cpqlKQ DEWEV4sAEdr1R5SQkyJTB0 wP6sqOcgLvCuU4G8SLDgKJ Vaz19dfRW7qyVdGbNeCKEk zr9yoT7dMErhtlFnaRhcsx Sob2L5DFSdq4E6XCCweuZw nRSqlLUqMNYaKgV9KKKpZk T4SBFePKXzxIMoFANiKB5f VGhlIHNwZWNpbWVuIGlzIG IwhONxgbNlKZQtat32C8nu KVRdtI0gb6yxRrUcCMMyVH HpjUIjtCS6MUJgzJ1vvF85 ejYeadXBDM6fkEOoMP8CAR NiMFxlcGljWHNiMCANClxw YYHtLPmdg6LaTHnpqUihVT UqSpEqFVrQbAsuGWZCI5yz dHCdZIzgACBSPWyIM3MLYN 4PSQNsgKINTTI8KP3bYZew KAKvG7QjH2DgceA3k6lctA wdf1PaqHPtOG6keYLdIL4V XHBhcmQgDQp9 Disclaimer (test code = [id number]) k1vgeKYzGSYzm2evRVEteO FuZzEwMzNcZnRuYmpcdWMx NLwhaxYoKAqvb2LiQ9NiSs AwMFxhbnNpXGRlZmxhbmcx XJOiCPR3qlZfOKAwPRglAW VeDCzrBz8gvEMkoYzxXaBh FWHee6hleaFVAGgqVjMcL8 39OAEeBItyl3wsa3WoTHXd dPQpi9N4KNHGmsyqkNt0eV hqM89tv0O5VcqaU3zwZEYk RUIdC8RmGR2tSLTjFja9JF Z0QRQ6EQBxBLUxP2WaWH6c MUDviRDeZYx4k4zokFfkEK MiXUT5o9dzDYrtnrHnJP1l xb8wnNr2s1uzujOxZWHiKZ XwrJLGREPmJ1TnlStwMb3h nLk3sSuyQgluPCK3Ywn6CD 0uvr46tjf0qKzkGBIwtyzm ZnF0OKsnNEKiavjmPVy5XZ lgLKPxlZU9VVFxtNDtZ9Ib NDUjPR0slvt6BOB6FIqtOH WpDjU0FFPowWTxZBTskTel GGwtd878CXT1RvEsMZ8sU1 Gdh2Q6xU9xcFQtSXZdvCQo HiKjYBLlju3eeUQwYUfcx6 GrLHI7knV1dTQptDQvZPFk GX04Xqpxh8XfFavvf1NuN5 1knRM1JHiuq4guGO2pUaM6 pxGjUNwqz8iyxT7zFpS8NL irWL6jDL9oWWPzqL7znply XHBnYnJkcmhlYWRccGdicm AfPz7ajUnoTNA0ZQdhZ1ow gW8nHxN2WJfaG9btkR7aXZ e2RZicxWJ9LNJjjB9tPW5q uyuse8rcUKjzKPvkQZDcem Q6atM6SSNpmUOsN8SsjA8b BSRdKJ8mrbmaw9eqNPK6JU pqIMPqDLF3TgNuWNRaz0Sj hwo8UrHjv5MplGElCBqxJ4 4kx915NZCjlwCmF7nwhHNe qjcpbAQfsepqIMphicK2SY IkivAxb2JaFOFkODA9BGaa PBsijOZqOEGqrUxsy5nrH0 RscGFyXHBsYWluXGYxXGZz MjBcbGFuZzEwMzNcaGljaF nrVKsyIhDbBCEyYNmmP2jm IiYoJ2IuHMNcWdMgsTMgX2 ggVGhpcyByZXBvcnQgbWF5 XDxlF0z1YBJknuNauBn7rh OwZkRcPNUyHCQ0BIgccPWt EUVer8NolekkkCLoLt2qfN XlREKhrB4oVUSgPHVpBZzw PO7baIw3NHSMcYVgcHTtQb NCJFScKG02awQvKKLNwlkr x9N9AMuyAYQzx0JopBPaA5 fto8JjGWWzr26lDO3ky5K7 z4yuRWC1TA5fc0CsVSGftW AqdINrLAWbi4Gbhginc3Ad SCLxeiFpc4QwFWPrwaOjhV BtPSHstdJvdq2opyEhPTIo SQFeY1DofpbbiExqslRgIU Cxif7knaWsSNY7ZUKVCPVz GVImg7UvwF5jlCNSRPG8iG Nyhb3qbvKOfJZjFQBwjo09 OPKpHA8wL5jbNGQcSGRdlp VbdXXtl4CqZVIbtCZ3gGYf FW1AVcTCt13gJUCxTHAIgc PrRPZrtIkwjDY3kmC7eO1x IChGREEpLlx+IFRoZSBGRE XbWP0xgaYze9VojpZrzGqg SWJnaNSzh1WalEXfq6XhmS jpu9NlzHRqpFHxSQ8fLZGd clxwYXIgVVRNQiBMYWJvcm J3v9PvVSCoCIQoZTQ2zBfl ciy7OHKttV6cMABwV3jkul yqLLaaKGPjt8YriQ9gtVFP sNDdr2CzfTYjkSTYvTAxQQ 9blqGbNGfYYTxBCOT0suEo SUXop5NzWIoyU3gbU85osB lufEe4lQN1GCR3oH5dCnn+ IFxwYXJccGFyIEFwcHJvcH SuAPJaqDmiyxFqW7TegaXb pQ6gbSOlsuNlRE1jOL5mW1 M5fHAuVNHbrjOla7mfBKkc dmUgYmVlbiByZXZpZXdlZC Lsn3KkOSsoPRK8DNxpthOb bmNsdWRpbmcgSCZFLCBTcG CocNHfHME4WOesfqHrguKf EL7mgS9akLvboJ9jgNRahY X9okohWRVpVXOskLmsXBVl PG0avHmxdY1hVvZiAsHpLO swMJ7yGNIyN5heqUImHIVt PVWtN2odWkSqlO6pcDgaLO xjZjJcZnMyMFxwYXJccGFy XHBsYWluXGYxXGZzMjBcbG FuZzEwMzNcaGljaFxmMVxk GfSsBOYuQWxbE5knMeLvR7 ElCULgFoXzlMGjZ6bhVPwv XQG9RUKiNY9ktYCcEH96bF Hly9cpLQvojThhzg5nS04w fJPjECwehRwrDJHju82wk7 GjBZEbtzQoxj9lKEZbtoQ8 nJ7eSJLnrPloDBCcvPXwVY Lvg9BgOZgrtZZmzeEdBKoi WWAfNWWcsHWxlzB9beZyql ZtdjIlPWVaiQfxGBKta4Wf COMrIZpcj8Mlla3kzVXzSX YcnfSCfPrfmMNvcR8uE2Pz PEXvNCLyot0lEYBzeR0sNA xze8KvgrcxKRYqZLJzWXBl moWtzu7xSGGkkDMALW0MNZ nvaCHqp0PopfJwP2ePUQQ6 NUQwNjYwMjgxKSBleGNlcH JpQXJbyl99UVOukH8gwSii LTJngA3fmO8ygVuwpA4kMh BeNqYrYPneGM6cSIZiN6ib pJFyCHXfLRQbK6syObGlfP 9jaFxmMVxjZjJcZnMyMFxw YXJ9fQ== Embedded Images (test code = [id number]) [facility] [id number] 19:23:05* Test Item Value Reference Range Interpretation Comme nts Case Report (test code = [id number]) Surgical Pathology ?Case: [id number] ? Authorizing Provider: ?Dominci Keita MD ? [...] HPylori ? Final Diagnosis (test code = [id number]) [id number] FuZzEwMzNcZnRuYmpcdWMx JLrxoaEbPXldaDicNLT8JD NrXD9fjPdzuGy3gXqcFLEt buB7pSWoQYulc0rbERP6c1 ylvtdmRWPaJJijDe2tdZAk qFgdStKeABWxQBj5tD24MD LpcJ3wzAPiPTr5SVRmqDBf eqVoNyHcGKKllVAdhIC2PM HmNO3sowrqHUirPDemVJDk khG5VRQksDEuA2IzLXKvAX 8bmibfFHR5UFeeDBEyAFJ2 JzNaILTqs8Ejaro4ElRuzB FyZFxwbGFpblxmczIwXHBh ejZPJaDJVN8MSWNDCWFHY7 nEZVHUTA2GWPEDAkhyfZLf KHTeNZGpKJLTCR4XCAZkJ4 eVRlKoFU0AEKIfQYRjgWXb UQRwaqJGMrQHMZ4PKA6EMH wgQklPUFNZOlxwYXIgICAg IRFcKKsTK3MKQCVhSSGQJ0 JIWNtTZNihSk2jKDCBMG3J Y9gFZ5LSERMYNJ9YMGfpTO OmPFZqCQStQY1QKPfsIBBW HS2ZCNUZEGKYOVsVTJZMII OGYAjXVDCTO8RVPCjEJQVg ktkhKCBnUy6tV6HOJOJIVR wgQklPUFNZOlxwYXIgICAg IMZaJVJWF2OROqYHVO0HP7 6JZNXDHBGIYA5MLTMEACuJ IA3WIQACWOJXUCEBJ1UouT FyICAgICAgLSBOTyBFVklE QP7PEBTDLfOBWKgVPTGzNI lTRUFTRVxwYXIgICAgICAt QT8UWLriOFSHNC0ROGGSKm dBTklTTVMgSURFTlRJRklF PEVYZBPZNS3WZw9VOARQRo xwYXJccGFyfXtccnRmMVxz l5JnB9SrDmVoCXzrxyLoMS BxNrkbjbwaLZYkKDV7xeCx HOByOSpbFSKtHWnjSp4wqX LwzWajBcMuCHVtv3hfskOQ BHhqKcBwB665BWLtZIggf7 rql6SzFBNkhGJcy4Q0PNFH gxrbiIz0l9bxSwIwPeA9uM JsHCevR5ysouFtoBAzE0Hk iNRqlQd3jBggS20hp6S5Av wpU2yhZRPdMPCnA9TjJF5v XFFvJud7AXC0YEG7XSUxED VvY6DxEW3qWJJnmKRnWAl4 p8gvgPseLYJjPWG3l9thAI tzykH6UG7eiv8knCj6l2ak czEgRGVmYXVsdCBQYXJhZ3 YloXgoAe6cnKg8rTdkAriz WFG0Omi2KE5rtf38fwi6vK eiYJVtljfpTxS3LCdhFAEx goczTAr3YUqzQFEewLG8XI AhhVKlL7NiIFJfJO1knlu2 EYM4YSquYWCuWxB6LGJfcN WwAFPpjAyhWUaew351NAU1 KuElTW8gV6Oid3P7hE7pbQ CkEZXgzGIfGwGhANRqbb3k dULsYUavm2VgABH8nwF6sH GmcDRwFRSsGG72Habcg4Op MrutHGB7WZFrezJzw4Sif1 krOgOadpBgP4ilV4PeMEIp SPIaMTSyCoAmvtTwh5Ded6 OdzCXnmNl1a4dtJTZbWFNo wEvgt0bdZVU4VGOkI7D7sR Rzk6qfKQmqHJIwtHD3ysH2 QNYxsHQaZ5VgyC5zDBFiZJ 1ebot2x8fqTXN9DPiqOSHk MbI2urH7ZNYdeGAwPJTwhW zdCLsen268YEW7RmEtJMDu q0EfN0SbhGiaB81rvWahX5 9tFAYveXbjbI1xaWhdzW3x ZjBcZnMyNFxxbFxwbGFpbl xmMVxmczIwXGxhbmcxMDMz NZpnZ8kaZsQxGIEymZflGR mam5SgRCDfXJYvQednzqEo XHBhciBJIGhhdmUgcGVyc2 9uYWxseSByZXZpZXdlZCBh cLogu5GvC0mnVH3hG4OaeZ IsfbSpuwXvQJrdZDBeb1c8 dOMixJouu1QpfAYiYQ54ku FgVUViLSC7TZTvh8ehLT05 jbiwMxNaxD22ceGtalRgDV Yuh4rhJ6uzgHUvm1Epq8Dt jhAyNYthv3LuVC3yjLAcrm lidNP3CMHavLIkcgYdroR6 iEvmJSPnzH2akC3noVlkiA 8rZzGxJhQaXOuuKP0uPGLd Q1xhbPQcRXXiMHXlB1umGc UccE5izHbuUtizgmL6OXMy cn19 Clinical Information (test code = [id number]) Shivani Schuler is a 47 year old female with IDA1. Gastric polyp x 6 r/o adenoma2.Duodenal Bx, r/o Celiac disease 3. Gastric Bx r/o HPylori Gross Description (test code = [id number]) t9wbcELhNPEirNIJHTU6PB BgOH4agHzkwIl9vEedBXRd jfL8vMUjYSrkp1txHMR4g5 lzugMQEwcwSGZpAS0nVLdu GSEtHK3tGgLsSRDbBoJeAK BhcGVydzEyMjQwXHBhcGVy bAX6PZDwEW6ffiumQKkjBB qaPUBnqgQ3HHHvqXWtG8Uf LPCdRP3juijgJDY2AQNACb keLh9oeOQnwVagVeCqFhCr YXJzZXQwXGZuaWwgQXJpYW i8wE7VYfpyTWJ5GKXJGwbx BenooLnfn3WhhPUtIJZtGJ xcaWQgNTEwMDAgXFxkYiBP LwWaXpM7Law9WSI6NrS2SI m0HDRPCHMcJqvbFMY8EtR2 SJv4BCCtWO0gBXqytOWvIJ rbNpicUKioV477EOexOBVx T6YuW4UqUYdsCkRaAGegOQ MiZMEcZPcaDMOeG8GMGWLx NQG1VyVuFSQxVFy2HWtrR4 DQNXCnKEGqHkC2ARRhUpJ4 JEb3ACTLJg4gEEinUhSjMZ h7QJW3MNo9VdMoVVKgCuUb MVFwBAOlLNyutVKnFS3saW osVQNcZE8EFWLvYZyaMZGz DeChI6IYG0jPMB2oVWwxhG JjaFxmczIyXHBhciANClxw VRXaEH4FLQKoCAwpXEz1kn VdJHSpOnZnVKYuH51zl6CT q7WnZD9GFWa0xgQxrkjdlA 6rBJBzhmWhTVvEnZUsdN8q arSJYAuwHWWcD0QrhpAnYH teBVCvuw5kpYjyKIcaNpMn bGVkIHdpdGggdGhlIHBhdG xuikBrY6Z0znMhCJ4sQZIW VDEmuP9gDUFmDGTsy4LtnC YmzUxnC1EtkUFqEgEsc5x9 jID5AQUcygJpVPSvjUZgBI Cuam2xZZrhQwSuZ4V9KGGu MZPql34ogLS7utFvXlWmsY v8dHLoNYV1LL8xlBetrhPf j0l5lQ7xBIXgr2R1FADjd0 E1HWJsngXwqVMyuMFcEMAc RL6vhrNbWI24RKLpIVgsAQ xgRQX0IHO2BOVyxBGlu3wv kkmjUi5mEQbdDT6kGSafZJ 11HOPoWMqjQQLrE4LjZ5U0 LThoZBDyOGCadBCucN8eek RfzzGlsCs7NIYmKWN6xPKm mXksNHXtInkhzRH6VXMoPn YbnlSrt7QrnEg6xFFcWUvi FFFrlJ1hiV9qYTZnBRGzvn HAKgflCKNlKDgfy8BbTAxz cGljWHNhMzAgDQpcZXBpY0 4as3AVd3Lco6qxdEfgc2Xv fMIwZR8kqNPvDK8Lx1pcEO ZxsBGeRNL1TQuuw0upFUay HMW6ZCFrSsSzYIQbUG2CXx KnZFybDBz1YNtdABm5DHr0 MF6BIeVrYIKrFdi4MhY1Ig CuEMl9OVofSP3EKXN4RYKj BQJzIRfgXHP3ACXbHDt3GB IgXFxzcyAzIFxcZmwgXFxu W88zdNGrPFomRnSkZBfiqD dyFPWxPSD6BY1OUUMbXgVf B0TGX9cWVI1lNiaqciSuMJ XfqoDRElskSKIyXY0GUEHa EEeeNMp4xvJpWGIeWhGeBY UhN36eb5MVv8IeTL1YYTq3 okUyzrlssV8cFGXorbOpx0 IzMFxlcGljWHNiMzAgDQpT pIOpbU8mitHHUQbuLUUgC1 UpspQcDEcbICDmvb3lqDwp IGxhYmVsbGVkIHdpdGggdG gxBNTagOmxqeUbB4W6ydJq XV9pUMLCXKZzmO5hUCSrXK IpWFBeMVXdnF2uXLG1p0Vr bwOqMWUMWXJauCduXX16dL BjZWxpYWMgZGlzZWFzZSBh ffUaenVfe44gquCwf4TfHA 2nxXrvZZxGBXymHjWrPV4g GBSgtzCdx9OoJC0hDZSdiS OzLTKipuqgpCTiMZq5jJJb IQHiIhWqvRyzb0LiLDDsEC deOP57xkCiLY3gSFidZI9v XCpxRW5sPMWyMRYmFZUaVx BolGUwBpKeiBKkNxAvB61v VgPJbIMuh7BuA1pgKT8vzZ IsDhrpxZQaAESbcPrqt2Ur dTOrQMDok2TnrTMyZZzhLO 7oFUY2Gh9vkNAfISAkrdW3 c7XbEHzgHAAwWxhgIJEiAP zjw4IsYOLehMYVv2TwBG6S XHBhciANClxzYTMwXGVwaW UNi5EwASQXEpgpjMheIwSi vSDoRdG1GPZrlRGvAST2QG 2lrVjaUXWvEIu0YXgaCIQq Y0RqW5PuGXotFeDsINlbBV BaNHThMRuuKFRnG2UNPLMu GCO9FyNbEVSyIWd0YEelM0 XKAXHoCUQoYkC2ILR3ObG1 XSo9RKFZXd5zTEvmYaSeJF ItLpF3RUd6EjFaWVItVrMs CPHlLEMzNSshmYOzTX3qrH hmDSNkJSLfVNS5IYNvlFHI l0StKKExKPczXsYoIKMQUM OBCJ4OUgNKQMRvKxFniZEn EV8REXGceuVhKGqjjUifxC 6ukYHnB0loLeGeLhczpNsc TmVzdERvYzEgDQpcbHRycG FyXGxpbjBccmluMFxzYjMw SBWsoHNOv5ZtLEUEXvQwTK NpbWVuIEMgaXMgcmVjZWl2 TJPsoJ5cWq4iiXJgzO3bxU FrSBnbIVSye0z0hVB4iVXd qHO3xKBzlTkaYlYnCJ4svM SbWOVCSW05mGMfofQrHMFs jP4fREQyOQRgUZL8ikckYQ TRLDX5hPRlw1K6JZupOLF8 zZ6ueGnxJuVlM5S3IRYqXW Ctx34xuPV8coUlHwDoNHSd gq6xgV1hFOrsemImuNfdud Iju0V7ROKjb6W9LUVuyiWi lITwpGXnWTIpSrQ8DKKpCj Q4DLUyAXYabUPyECHtID0r VGhlIHNwZWNpbWVuIGlzIG FoeQVzurXlETWzjb66A8pp MNXmtU7nf0urIsBzMIDqLZ IgoXGrjRG3LZDubK4kvO68 kkNtogTYOX9ajPEwRY7LPJ NiMFxlcGljWHNiMCANClxw RIVkNScne9HoVEasaMtsVS AgUsAqDMxQwNknFKXVA6ao gOLmXOdlNCKQTSiBG8WRGS 9OLSOpxJESPJY4PR4bXBxn TGTrH4EnF5XgncO9d7kwwC kny0XewIOgUJ7viNXuAW6R XHBhcmQgDQp9 Disclaimer (test code = [id number]) u7hjjZBrPMCvt1abBEBosY FuZzEwMzNcZnRuYmpcdWMx PYfymyFvIGhsg8YuH8FtPk AwMFxhbnNpXGRlZmxhbmcx EUAuQOK6acIsDUFnIEleNB OkMOifUo1suYNstNuwQcKf RLAsk9lqkdTZZBckYuYlM9 81VHIyKPkci1emk6ZbMXKo wHVqw3M6XGYOikonpCw2lU shP73aa3S7HdqzH1hrDPGp BIPgT3GiNJ4dONMhIbs9BM U7JVX2NJNrIQLdS3ZmCM3w QPXgfZMjHLw1e2mjlBqgSB GjOYQ7n8ybKYteslUhEN3i yn1ikTc9y4waezDiBTBiZL KdzDPPENGzP3NbhXpbOv8j tRu5iGdvPnzqKXL8Fqt2JL 2stk70exe7dCvkUTRoyozl TnK8AMplMUBjhpasJOl4UF fjUZZwzJO8BUFlfBIaJ4Hr SBYjBO4qukd3OAN9CIwgLV IsAkQ9MNLakKLjJJSbcDrn NThfc873TOI8OeEyMQ6pK8 Nzy8F9hH2vnVFbMPMovHDx LqJuLFYgrk3biSZkCVxra2 VgSMH4zeR1gNJaqPNnXGLl XW91Jzwrl5ApQdrdw7PqO4 1lpQL9XIbhy5myUL2fSoP6 spUuWQbmn4lbbW0kCfX6TS xlQQ7bVI9bWZHufJ1kbuml XHBnYnJkcmhlYWRccGdicm AjYo6lxSfxFKM4DHejC3om zQ7iZmN8XNxaY9ynbZ2qCF d5FRtsnLD5VXXljB4tAC3s nbday6zpBKbrUKnlGXLeui I9ouN3CAOmbXLcY9HmbG5x XATdIU6cgixky3ngZKW5HZ hmVBEtLPF0XlWyEUOda8Ro lih3OiEnc0CxfVWeLRufC9 3ma570MMNphbYyP8fdtHWd bkreyGBuyucoLGgeizF2OQ FqroFjh3AeGDMeZJK0VSxy GSmssHAiADGbkDjhn3rwO6 RscGFyXHBsYWluXGYxXGZz MjBcbGFuZzEwMzNcaGljaF wzDXqmRfInTXQeOSrpU0mr IwFxJ8XoZILmNqPuoUGdD2 ggVGhpcyByZXBvcnQgbWF5 POjdU9x6FUEuinKxhOk0fw QpGsQgMBRfZZZ4ODrsmODn RZFnf8AalcfflSRuZt5piE YfFXLivM1tMXBuTRCnZFkc PR7ycFk6LFQKkSOerSTlYg XTOKPuUM85xoZbTWXZptar r4P9HVgkREFkx3FebTXgZ3 glw8UoFLBdi08tKT2wt5U3 a7bsJRI2PO8qe7McMBKleA EzoYLzGEVmi5Kgmqpaz1Wv DOCckpMcq7FdQHGgqaKwmJ QaFGDatdGbff5onvAhUBOz GUPmT3OhkvqgpXnyhwOfXC Mdet5ojqNoRLF5AJFZUELb QPBga1NvjV4nuDFVINS7tG Btgo4avvXChJUkUEVbcb55 PWVyGD6pZ2nxEQRgGYWcij OfgMHyt7GkHUQwsXI5xHZj NJ9TVtNDl93nFCJgGTEDxq InXWGrmHvaaLQ5eqG7sD4p IChGREEpLlx+IFRoZSBGRE WjXI1xvdNtj8RmcpCtyBnk QVVheQJgq6PnlFGcz5UbkO xgp1DobKGktTLtZS0nSDWp clxwYXIgVVRNQiBMYWJvcm U8u7ReZGQhHFMdLOM5cOcu nrb7IZTjoX1jBANgJ6bzyi zkJYmeOLMhq2ArhT7dyRHR aSBla5XpxIOxmSTFiWJbFF 6srjIhFCoOTHcCYND3hgTp UCHdl2UfIEnyP7jfI46xuC kyjCq1kYF6XGU6mJ6hZfh+ IFxwYXJccGFyIEFwcHJvcH CuRCDvuTgpjfGlD5QqyrQy qH0deMNoccTuJS1dEK9hP7 H9wGNyZYCufpAoi8flUFav dmUgYmVlbiByZXZpZXdlZC Gfi4EnWDksVHY0HCzuewTn bmNsdWRpbmcgSCZFLCBTcG ZsoTObUIY3FZewlgGiwtOd UE2jwI8fdKtczA4ghUJreQ L5cjdtKHPlMWDouCvrDJHt DE8koSkfyV8aSjNfPyObIF soID4aLLUiS7lrpTDdCPTq NDDtN1ggShOjcP0epGbsYX xjZjJcZnMyMFxwYXJccGFy XHBsYWluXGYxXGZzMjBcbG FuZzEwMzNcaGljaFxmMVxk JlEfJDHtQDnwM4fvSmQnZ9 JsILKsXkGwdMQnH8kuIIfw STF8ZBSpYJ1auSXrES40qH Gso6ahRIcevOncpu4eY74x kSSmGMuflMbnOGBjt56kk4 OeMGMkzvByjg1yTCHpltH6 lI0iWZEmfMfaURRlxCErGD Afs6MaVOgseOSepeIwHHvc RDHpDRWytYDwslS1peFnkx GlxtEhDCRmdXjdSMZyz8Uu MSIaGEvya0Jneg3tqWKcEX OwolEJlTekkXCxhL8fR3Sw TBEwVYMvmo7fAHHsiW5rZL iha3ZeafdyQXGePRBrFQPe xfKiqg4dRUXkbEBHPU7IKN nisUVus6CwehZgA6dCPTG1 NUQwNjYwMjgxKSBleGNlcH MlQHPdfv53LDOltH8mgGnl TJDdvB4gwG4doQeppY8sUh IyTjEeXZnpND9xINTvT2zg xTMeWYZcUFUpE8btIeMkhO 9jaFxmMVxjZjJcZnMyMFxw YXJ9fQ== Embedded Images (test code = [id number]) [facility] [id number] 19:23:05* Test Item Value Reference Range Interpretation Comme nts Case Report (test code = [id number]) Surgical Pathology ?Case: [id number] ? Authorizing Provider: ?Dominic Keita MD ? [...] HPylori ? Final Diagnosis (test code = [id number]) a6ojaTJuRQAqj0ktXAZedG FuZzEwMzNcZnRuYmpcdWMx ELcktiJgYYtoyRnqJIW0GQ ToTV8luYaxzUg7dXyvFSOq zwI8qQBcDHlwh5ivCHR5b6 bopxqbYEJoDRehPo9glFKt nPdfYsVlVJZcKOt8yT05YC WcwN1ruXErQZl5MRMojQKs zqThUkZsEYSkqHTsvTH0MI NnTA9exllgOFhhECafPRGi crP8QVNzlUPdU8QiTKLlMB 5knhhcMGX0LRzgCWVnDKQ2 WpLcHVRjm2Tzkgj5IgDtxO FyZFxwbGFpblxmczIwXHBh zxHQJnOYYQ1KWKSTKEBYJ0 aATHIJMK7CWDBOWutjyPRy UKJwODMoSWSELX1KHXJwE8 oKBqCnUD1FYUBrJVVebHAx EQXwljPBPoSHHO1IED4DGF wgQklPUFNZOlxwYXIgICAg AZXgMDtAW3DDLYJuYAVEX7 ZXMAiLLPhxLi9bSSNMBG9N H9iCJ9JLIBLQSZ7QUBvcMC ZlGVRiQKNfXK3CHUrkDTCJ WX8LHQHHDSHFVTmTDUDDOP QYVUeIVMYVP4ZTLFrJCGLw egvjZNHpRy2bL8JJMPOZQG wgQklPUFNZOlxwYXIgICAg VIUlZWRMP6WSWlFEUB3EI7 1IPVBANHNCEW9RSJLYLXnS ZR1JDOZHOZVSLFWXC0RykT FyICAgICAgLSBOTyBFVklE OM1VIKFAVnWBKOsLFCLaES lTRUFTRVxwYXIgICAgICAt VH4KCHibBHECSO8XFMECOv dBTklTTVMgSURFTlRJRklF HOAEUWIZQY5QOt8MNNTTUr xwYXJccGFyfXtccnRmMVxz u0TzM5WbXfFvHEotmoDoWS ZpYwcffihySGHxNPT6mtDw RJGlXHxeXCYrTUccUi1csR GjbSodFjQcEEIto3jewdAU YEisVjYdN423QGDbVZzjy3 uyt6IxCMRawWQvv2B2AKIV vwrwpEx5v9ppVwMdMcB1nN NwKOlvC2ukyfGlqIEvL7Rn hUVbtFr7bBjpE50vb2H9Di oyN8faLOYnDNHsV6XoNY6l BQJbInk9OYU2WRG5VJCjMS YxM2NiPY7tWUNueLOkVYh4 e6hcqTboFBCpSXF0i0yzSQ iuttL9LH7wsn4efTa5s5qq czEgRGVmYXVsdCBQYXJhZ3 QvmYmzFv7bxMa3zUmkRyrf LJW2Mje3OY6nhg85fan9fP tnTZFizbyfXmQ8RPxjSTQp ztxwCRs5WRstOZJjdIO7AP UfkVZaX4QeTPOuEC4hxgt7 DPZ4VUmpZEAnOiB9XDUfwM CdIITspKgrIYhtc048NKD2 SwWyDD1dJ4Ktg3B0sI9hhA WgJMUecNPgKyFqIYMwjw1k aPIpCVtjq9WtBYU1mbZ2bY JmoXVxLFGzLA75Oycep9Ci WjcgGSZ1EULzswXig4Dtp1 tgVhGhkcFoV2hyW9QePVVj TLGqLUNxQwTuqoRtw6Cop6 FgcBXnoTw2u9fmCYJgCMEy qSrjj3guDEK6CCBbW1H8hU Efv2ulDQxfGMVdnMB9uwM5 AWNjsVMiB8DazU8lIAUnQT 5uqda2l7tvLJD0EEmgNPYr AsM6sxR7TXTzyERcYDLflH jnRCqzn789OHW3KbAsEKYq u5XzB2OnaDndT34obMyqM9 8fMRNjcPyxhW3zkBujbY7i ZjBcZnMyNFxxbFxwbGFpbl xmMVxmczIwXGxhbmcxMDMz XCatW9ayPsVmASEndKgeHX jof2CdZQYxLQKsRnooetTp XHBhciBJIGhhdmUgcGVyc2 9uYWxseSByZXZpZXdlZCBh vLhei9DhW5htVP2iF3NxnG MxzdLhdyQaKOykDCApo7p1 tVNjnWtuo6KdeRHgRS15cu NnMDTzSZY9PFTpq8epFD11 wywoEsBodE40dcKveqBzRF Ecv3opY4rhzUPag1Jzx4Ph kvGvTHgtv4EmVP5jlDCoxh rywID0KUMlbDHkmlNapgH9 dMzfKQQigF6rmG8vuNxzbR 4aLbAoMlAgFAxlHX7qHGLy M4ethJWkFDZsLHTjM1yxAc EyeT5auZvuXrboiyE8YRBf cn19 Clinical Information (test code = [id number]) Shivani Schuler is a 47 year old female with IDA1. Gastric polyp x 6 r/o adenoma2.Duodenal Bx, r/o Celiac disease 3. Gastric Bx r/o HPylori Gross Description (test code = [id number]) m0hepPWkXWBkfQFOLBF7ZA ExNX6sqJvvkUa5qXyrIDBj npM1jMXvDFugt4hbQLH7x1 vrhtQZQoyaTTKzAS6wMHyi YBSjMA2fTuXqLFHaTsWtAY BhcGVydzEyMjQwXHBhcGVy cQD2HJWmBO7irbpcNYfbPX lzMWQvstW6GTEakKPzK7Sn XMTcIT5lcfvaLPI5QKXKFt kkIf1wfDEkhYprLxXdTsWz YXJzZXQwXGZuaWwgQXJpYW e2hF7QLvctQAP0ESOFUgrm XpryuSovl4JanJEfTEIoRS xcaWQgNTEwMDAgXFxkYiBP GnPpIcZ9Gif5POW6QyR1VQ k3BAOFBFOaRvjrEMD8AeH9 NDv9PPNhCO7aFTkjrRLxEB guVgqkZTpxX150NOstZPXc W4YkA8WoQQvhLcDgDZtiIW QbWSUzKQztGOHyK8JQJMWg NNA5GnUcTWDbNQk5KHrwH3 TPDKGkQBHbAxQ8ZQQoAdX0 NDd9EWQHAb1xOLmvSjIkCX t4FCI7WSx6MfKgPICuZtLz CJLpJIAlXTyzxRCpVR1ptB wsOUBtVA4DFUIsTMxgTLDl OrHuD0SRJ2sRJE6eJPmczZ JjaFxmczIyXHBhciANClxw TVEhTJ2ZDDUtPFdkZKh6kk HiBNHuQzVuZRKhM55fr2EU a8FcKB2KOXk5jcOyxfayqN 9bUMXkktGvLYbVfBQigQ4x exREMBhlSFDzA9LvjvEfIC qpBFRvkp0nlLumUAekTyGr bGVkIHdpdGggdGhlIHBhdG jvsxQqE7R5xgLeJI4cJFVD EWJmsB1jTGMqFXBgz3WycS UkeYpfV8UlwCJqCxPxi7z9 mMV6KCZrshWgKGAweYEpKI Rrff3wLKtgMyUoF4L7FOYw YZSze94sxDQ2qyMoJtJcmF i6jMTvQBF6JK2lmRinjlXl y1r7sU3dVLHrw5C6PASau2 Q3PZDtkfUvtBWlyFCyYHAp MG3cqiFtXK76NCYsHLdbJT gxJTP5FYZ3KSTtdFWvv8me vqqmFf0oYPwdDO9bQIdoJL 56DPRgJDkbNBBfU4KnY0G8 HUoxPQEnNTDrlXHotQ3exv NetcLgeLn1KSLmRYU0nQDa jZupBBLpAhhzbMX0OCKgSl FolbKxv2RlmTg1xKAqGXqw TGQzkU3acP9oEVNwZRSmgz ALJaydTJDaSIkij2TtATrg cGljWHNhMzAgDQpcZXBpY0 1za6YJs9Guo0zwjFoxd1Sm dJVdPW2cvLUzSA8Wi4rhSX AbnNEoFVC6DOxno4iaDXip AEL3KHBjCyCwIGVkSB2DSh CgKLnzLKd3RYgdWPj9ESn9 TC8HZeDbPGLgEjo8YuY4Br UoHUs0VClgUV3AYVT3WHTf PBXiJLasZNT2PUVxEJt1NS IgXFxzcyAzIFxcZmwgXFxu S68duGWfFNuxQzAkPKdfoZ azTTQqOJG4UB8WUPXgYeMb K6VLM5eMGE0vQtizmaNvMF YvxbGYAdekKZEqIP7XOHQn XRniZRi0riWdELLbAcOsZS UrD08tn6SFz5MvXR6DAEo7 mtMzhfqxbA9bVYKrcaTpq0 IzMFxlcGljWHNiMzAgDQpT fDLzcS6qdaWFKXlyWKLdF0 SenoSbJAvwTPPyyh7gvZmf IGxhYmVsbGVkIHdpdGggdG vvQRFyhMxfusWzS6G2unKp JC2jIBMKDJLdhJ8yHBBfFD GbPGXlRIPbnS2oRSZ6p8Mw paUcZGHLAVZzaQdaUB06hM BjZWxpYWMgZGlzZWFzZSBh hpTzszDaf08uzlMsi6IxYQ 6uuJpxWVxIYQabVjMzQQ7e XRLnduNqg2VaHJ7rVRFyxQ FdIRZwilkayLFeMMi6wOQy HVXvEpUuaJrcy3XwPSBeYS hqZF70wfBaLD4hLDcaJC4u VSwzFG1nUKTcOGPqOOLaJn GotZOtCcXshTJfEfFjW16u ZmFWjRFhw1UhX6maFX2qdC IcGrxmcBIlXHXtrTyqq9Wy sVXnAOQsf9FinOAqVAqkJA 1iQPO7Zs1uaYZhQDRvfbX1 y8MtQUunJNSmDcjnSJPeNU cxh3ZeHOLvcILVi5ZjJY8A XHBhciANClxzYTMwXGVwaW DWi5BmVLINGlkylPrqClSd iXWoEeN3MXRreSBlYVW2LA 6mdYemSTCnGKd2XPmwQYLt N6DsE5VyMPjkSzQyTWhbQT BmEPKeGUykFFUlM4HIRISk FHJ6KcTaPDEjZBi5CAexA2 HLQEAkLSShCoJ4DRX0BzQ7 ODf4WLQLGr2yMChfWgClYK AxVmU1SJl3MbRpLFMvDqJj BQAlSTQiBCafpPPaUH9iiB qhIKMuDOEyQYN0DBXqkOHF z0BdYHEpNLqjMnWtAWUYPR RIQJ7YJmOPAZToHsHobBPn VE9KQCAhgvRtUXpzpFcbqA 6xkUCuG7uiMkOpAdlppPbe TmVzdERvYzEgDQpcbHRycG FyXGxpbjBccmluMFxzYjMw QGTsiYPHa6NqQERVWbXqHS NpbWVuIEMgaXMgcmVjZWl2 FCHouA1rPv1ihPDbyV7hnG ZqCMqdDGDgv3o6cMN5vNPt dTV2gFSpjOqoObPaOV1knR ZzUTMOXW40kDTrvhFaBXFc gR2xHQAeQAPfHXD4qhhjLL LOLIZ4yEQpe1G0DOjqLIZ7 oK4cbYlyTkEeR4Q3VJJcWL Xfg45icFF6xuBlKeEtNFHk kl9gdP9rPQaezdKdfLpqyc Suw9T4ZYUez6W4SKFyssAp dOWglQIkMFYeFdX7QJUcUy H8YSTxEFPylXIvDQIzEO4b VGhlIHNwZWNpbWVuIGlzIG AriTDrujKbTTXpnu75A4ol XMIsbM2bn6oxPwFeGPUyPF QhpDDhlOH9YDWkmX4pcX14 uxIuxuTGHF3yoJTtWW9VFO NiMFxlcGljWHNiMCANClxw GGWoRSqjp4NbEJkrtGlsBG EfJaUvJPtYlLqoIBCPJ3ab rGDeLHabFJECCShBP6SAUY 0VQWUorZFIHAE9SJ1yQCjc LVBhD5ThK4YhokX7t5swgZ zgm6YcqELhEF4toDFoNU9K XHBhcmQgDQp9 Disclaimer (test code = [id number]) b4drcQDcSBKlh4owXEZdnK FuZzEwMzNcZnRuYmpcdWMx BChugkIzQEhza0VxH4EtPk AwMFxhbnNpXGRlZmxhbmcx SSScAPA4lpQsSMBtQEzqEF VeNJjzZx8mzMShkVnuOpTv BBNoa9fhatOPUWszAgTaO3 11APUvYRsgb9zfl6JdEOAf sPPmq5V3ZUZSlcjadWs8cJ ltJ11zj9Z9MxkfZ8qjPUDp VWTnA9PzCQ1oUBLuVat5HT W7KYW9CNBrQYBnV2JfFM2m NUYohSWoYKj4l7xudBqbFV IeBBS9b3ydDNrrkcEmYW0m ke3pwJz9h3ogocYjTSMiLV RpqXQCLEGyS3WflCykWa8v yPj6kMrfXnwuEGI8Uwf4BW 6zsp19xjw5zLcoCOSerpgi VyW9XVkmRWFgzalyTJb9CU xmATWmuWG1GHPnnYNzX8Zy JNMeCG6qyak4DMQ6PRbyZS NhXoM0STAckNTnXYPtxDkp LHimw778RWT2BkJpIR0cU3 Top6P6gR3euRBdEZGzuZAv AwBkSRYmgz5hsDNfXZesw1 LnTUF7ngX2hKDirHSrGYOn ET30Gipsy0WnQkfmy2DuX6 2gpKC0ULech0vhZZ1nCcT0 lgQrYEcwg3htbC1bHyC6CG bzZW1yUQ0aORTwbO4cbura XHBnYnJkcmhlYWRccGdicm AdXw9grBjeGHJ3IUqdJ0nd cE3jTrK5KBhiO8nfrA9wOO m1YRgjbRK2JPHfdI4tPB1w olvgx2ceCWsvYTibRZTwak D9dxN5ZTOreXBuJ0HhhS7g IHIaPW4eirkeq0mxYFB7AB lcPKFfKQW6AwBcJOZqy7St nnh5GtFgd7XroORuQXnwC9 7ph752LIYnwaUxA3awhLFf oygpkFTuqmhvXPauvsC1AK DcweUoq6JfXYXgIGE7NUgc XSegdSPvHEItdXcwp6mpO3 RscGFyXHBsYWluXGYxXGZz MjBcbGFuZzEwMzNcaGljaF jlGRugPbGpURFiFDtbT0js RqXtF1GtSHIuRgBkpCRtW1 ggVGhpcyByZXBvcnQgbWF5 HWusA2o4JUNpqlDvfKt3cd KxAcSrXGZyOMV5TVulrCPz RMEun6VzrxntbTOtYr8riC UfSVGthH8mAZLxFPJrKDvu WM1ycHm5NKTUdRYotBAlPo LCXEOrSP62yfLoANELiioq q2J7MHnnIGOhw7TabCGoC8 oxx4CiHFCcz03pKI6if0W6 s8mmSDP4LH8zi9ZxEVOkdI QbcYOlDCMzh6Msmqvln6Xr PTDzrzJrs8WdVTDeglXpqI ExVRPkkpBzbi3fwbAhCRSk WZDaE8OrdeiptRdwmgYzEK Kqcy9aavJsHXB9BAWGMPCh SLCzj4ItuJ2bzKMHGHP4kS Njlo1vcwADoRInNMVkqi82 OWNbPC9yM6etSUHzOPCyrd PunRBqj6XcOEAgiOL5fRDu CO7CXlXIg85vTTNzEIHMzs IuZDQllBgxbKU9itZ3kD4k IChGREEpLlx+IFRoZSBGRE EaSY6kncNpu1QgbmEskVpb TOJrxMMcq7CfvHWnw9PemX tju7MkzOJepDCuTX4zMKXs clxwYXIgVVRNQiBMYWJvcm Z5j6QkHCUaJZAiMIY6kRib zti3YPVxaU2wBBBgV8pfnh xbMDteMCAxb1KzsT4nxMSI mTVcg6DjgZUjfAWTzWLpKD 3nuiFxVYlYLCyJJIP7roQj PXHsb7JxVJgiK6rhO23ddK oehKs6uWX7ITE9eZ5sRew+ IFxwYXJccGFyIEFwcHJvcH GcGEGieLoczlBiU3CjsvDy rF7efNHyzwGzQE9xUQ1hX7 C4nFUtIASkokHzj4geFGvk dmUgYmVlbiByZXZpZXdlZC Ffe2FqQQdkCDM2NInkxeBr bmNsdWRpbmcgSCZFLCBTcG IxiMHxRIM2LSyfcqXeoiQu JA7vnR9nuVjtzO6geMTgbX N3oqdyERWsDGPozZprEZVt DA3szXbtbJ4bPvEwYqPlRH ooEL4uFOQpP6jzhPFuIFKu MSZsM8boHtYygI3uoNgyPQ xjZjJcZnMyMFxwYXJccGFy XHBsYWluXGYxXGZzMjBcbG FuZzEwMzNcaGljaFxmMVxk PcDcAWLzQQxuF1fwOlYbA8 CvXDMsNbTubCMiZ7ctWYsp XVS5INGtLN1lkZNnHW88xH Dff7mqNIwrhUsrea4sD14e cTKpPHobyNqcNHLis17zr0 MeEJKtueNcqm8tUABckzS0 wI9iPMAeqYniLQZzjXCcAE Pea1VoMOecfDTbjyIqSQtd OHRsYHJscNZeppT5byGbdd NsalSvKNCrfRmmSTGkj9Ly EDTmLCtko0Wati6riNWpDZ VjpoFFdLfjtOQjtW7yX5Pf KJXgHKPueh3eNPFfyW1iSP kke9OurvrzIXDbFMHtSOVu byFqch8iABCkrVQMKN6MJB warITvm1JdaoGsT6kOZHW9 NUQwNjYwMjgxKSBleGNlcH NmJRCdzn63UWHddU3udLeu LOJwuG4yiM3xhNqaqO4mOq EjWlGeHNqvDK2yZOKeT0di oMPlBNUlTPHgR7euZcYsdF 9jaFxmMVxjZjJcZnMyMFxw YXJ9fQ== Embedded Images (test code = [id number]) [facility] [id number] 19:23:05* Test Item Value Reference Range Interpretation Comme nts Case Report (test code = [id number]) Surgical Pathology ?Case: [id number] ? Authorizing Provider: ?Dominic Keita MD ? [...] HPylori ? Final Diagnosis (test code = [id number]) l7embNFhLSQbl6amKBWvnG FuZzEwMzNcZnRuYmpcdWMx ZBqmynDxLYzhnXthDPG0BC VeEA5uhLyliPn6jSesOVKk fbT0aOVfJFtsx8yfFSN6n8 ficwqcPNMtNHllGj5zxQZv sCblLtIrZTBzXWs6pF95RW AquV9riMDeHJa3RGFruTRz daYhNfYyQVFvwDUqnFC1UT OrII1zzyawWNjeGXgdQKAe fpJ6WCCliHPgZ8DmVOEhHM 3jniurMRP8WEydSNZcFPJ5 TiGnDQSii4Xksqs6IsXcfF FyZFxwbGFpblxmczIwXHBh qpSBCeJNAR8UASJAPOJQH4 hSBYERXR9ZGAJWHrffeDWn MSQiXTBzFZWSDL3ABMZmD3 qGXeMeEK1WQFPbWWAkvFGd ZBZghcSQZdOLMJ4KAD2QQV wgQklPUFNZOlxwYXIgICAg RBYjHYnMW2AYFNKiXGYCU3 ERWBsBFSomCz9iYGRGMX7W Q6tOF8TCDLFTJN6RSLjvJD LkYIKyJRMlKN5IUKipHVFZ NP2HPMCDCUOFYYuBCEXGDO IGGOiBJCZTV3VVWLcYRBCk yyjhGFIfNu9yR5FWCPZQCU wgQklPUFNZOlxwYXIgICAg GFAsBDWVO1LEQaTZEK6TI4 4IKYGPKOULOC0DVTAXHIpU NG5WFKXMWNMSSNUGH5EujK FyICAgICAgLSBOTyBFVklE HA2ZCRYYQcTYXCaWBYCvTU lTRUFTRVxwYXIgICAgICAt NV6UIHvfJRVWJQ1QGIMNFw dBTklTTVMgSURFTlRJRklF IWSGAEISFB2KVk0GBMKYGo xwYXJccGFyfXtccnRmMVxz y0VjX2WfInOeSYganwKxQZ BlBhduwhawSDMzPUZ4upGk JWVuSYorAZOlIZoaVe2odR HitYcyAjCsETQek8wvcxKM UAxvNgGgW587TWCzJCpyg1 ugl5HxGGTejWBrv7C1OFFN qgntdCn7t3wcVmQmAsN2sY LcVMhxX0mborMfdEYaQ7Bd zPBqaXy6rImqI16fy6L5Hp ioD0iaXFRsJYAyW6LbVO5m OASfLpp4KMH8XHF5LIMoMT ZgN3NqBZ4iRRPvoODdMEy3 k0woiRgqLSVjJCF3o8igOR jgewB1SX9vbl3vgDq3r3fe czEgRGVmYXVsdCBQYXJhZ3 GrfHqpTi1hyIf8tEixDdqe KAP4Edq0QD5rzx93ixh3pB azSNOpiobpXsU5QAtsQRYl ksorOVn5QDqtNPRdyUH7AL CmdBNaN4VzUBZhHI1kgyt3 AOW1WBycCBMfXfE0USVwxC DlSRDjsUvaFThtt563URT0 WkCaFU7vM9Acm4N9jF9moX OsYQQhrZSlMwYuWACtrd4o eANcWLvih0PpJNE2cbM7hT FudPTaVJIyLP91Zqdra6Bw PablWVS7MRDxhxNsd1Xzf0 bdKaRqqoXmN5uoN1HdOSFx FKPzCGSeAvHqtxFee0Tra9 KgtXKzxHa4w4qvRICgTAHy gSllf2yzEZT2QSDdU9H4nA Nhq8vcQRxbZQKxqQJ6xcG6 PYUmiIMcY8DyxW3rDZBsBS 7mblf4c1rzUMI5VZqgGEKu VfS2cgO3ALZtkSZtYODsgB diBGsrt252NLR4ItUmYUTc w0UvX2NmcWkeK46koFjdQ4 2iQLGyyWlgcG8mhKaoqR5v ZjBcZnMyNFxxbFxwbGFpbl xmMVxmczIwXGxhbmcxMDMz RKqmC3inYxFhEYIgoTpcFG ozh3EkQQSxOGOvWbkumtAi XHBhciBJIGhhdmUgcGVyc2 9uYWxseSByZXZpZXdlZCBh zBqiv2FuW4ieCO7pW8YgbK ItiqIxfuNbLPqvSMCno2k7 nAJniCtzf3FrwLMxSV82nl GlHRVkJTA4DYXug5uvNG23 qhzbAxSitE40ywYajlEjLJ Xed6gfP4gfkEDcm8Tmg4Bv qgGuRMhca5DyKK7bdYKbvm ycuUY3SDImyAIzolGwzrY4 mIuuQEYunA5frR6uhNbwdY 8sVqRtRjDjOHuyKC2cYUOx U2uzkAYqOOBuSBWwO1xbSg JgoA8gyExqPqfjmtB2VFLc cn19 Clinical Information (test code = [id number]) Shivani Schuler is a 47 year old female with IDA1. Gastric polyp x 6 r/o adenoma2.Duodenal Bx, r/o Celiac disease 3. Gastric Bx r/o HPylori Gross Description (test code = [id number]) u7nreWOwVWOlmCSYECR1GR IrAH5jjHzmkFk7fRdqVFAo ufM8kFSmLGdhm0jwVJY5n4 cbxeUOOihrBIQzXZ3xTOlo WCFaSC2pBjQeSFLjViBjXK BhcGVydzEyMjQwXHBhcGVy eAO3TLAfPL0nvyxaNLerST pwJBEhomE1NDWcpYDdZ9Ex RRQeTI7eeqvtWJL3XVXURq keNh8xpOEekNqgFcMfVtSr YXJzZXQwXGZuaWwgQXJpYW n7iD2ETdxdEWG0ULWRAhnx HufgaHsqa1ViwDXzULCqSI xcaWQgNTEwMDAgXFxkYiBP ZxIrHcA8Uod9EPS9DtU8ZI q7BRDQZIPsNfiaDJV6NrR1 RDm7FUBmWA9vCDvrvCWvLC coDyeeCMyvQ716NLmaENIi J1IpS1XmEWciMhDlIFwuYS JaPCQxHAjbFQNvL1ZWFAMg RKW6EiDxLVPlKTd6JGaeB4 GCUFZyCGPkKxD1CDKvFcN2 OOg2ZEYXOj7fVLcqLmVzRS k0CTU9TRm7WyOnJZNpIaUi IRMvRGXtKHjogCDbCV5xvP tcRRSkHI9MZHRqYPexRKWq QoQnD9MHE1wZDP9wXTeyrD JjaFxmczIyXHBhciANClxw IKIrNY2TTYRzOTmzNTv2hv ThWEYbOsRdOZVnK85ss7JH e5TsCB4ANFl1vqJqfnvwdG 7mMFNiezBcXJsShRYywX6f mzZVXVvbXFCfC1KdvjAlVY ffAWWcvd7ymPgaFHwnJdZf bGVkIHdpdGggdGhlIHBhdG lgzyBwG9T3poBrGF4lVXWG DWXidH2cYWDqNHAss0ItuK RkzNpcQ0ZjwCDkTgXyw1h7 xBK5PYZnrpEtIKQstWJqMP Kegi1tCKrdWeStD1Z7ITDz PQAbc17nuFW1lrLnUzCpaV i6eERbSEJ5OV0dfEkvgdCo u6l7kM6yUPMpd2K0ZNTpe5 B9GIBwooHhcWKrcDDdMBWn HC5ghbUrRT53AYMaHJqpQQ sfHPA0ICY5YISoyDBuv6uj aznoPk9xHSezNM7xYInsBH 79TGPmWNuxPBCsZ6QtU0V3 YTcsIAWsIVMqzRSkaE6pfj BejkGzlPx5KJVdENX1rBHw nFfrACDzZyomoQJ4VQGoBv SvxdMbh8YoeAg4bLItTSgy PMOexW9xmQ6wJMAwNYZald WTCtcdJGNyVKpzf6CjMMap cGljWHNhMzAgDQpcZXBpY0 5ed4QDc1Qtp8ednPjuh1El tAOyZW1jnVEvJQ2Rq7nsTK HqyWLhQIZ6SFnbu5vaDWxb NKI1VUGlAsHbGEPlFC6GVw TnNSdqQXe5MUpxUNv0JQr3 YH6YVeXdZUEgSkh9VwV5Ls EuFVk6JBqzFK8ZHYC5UCRi KDBvPQbqDXX5KYLdMRe9KC IgXFxzcyAzIFxcZmwgXFxu Y18zlDGbRYpmDfBqULknaB bgPZSnTOO2FD6VMWYyGkXa C0MOO4gJOW3jBptamoXiXV XiozXMOmliDCMpUV4OQKJk CPcqVFj7ewKrKNMnDhNmDN PpX02xm3GGs3UhXD1LTLl3 yvNmknnewB4hDSIoagNyc8 IzMFxlcGljWHNiMzAgDQpT lMLcpF5zzpDLLCemTXHhZ1 BgblZzDEmnPYPyzi4ffAkn IGxhYmVsbGVkIHdpdGggdG zjVMZqdVpmxdPuQ7P0yuLu ZA2zSDKZWNKdqC8wOBZhOF WvZOYfGYBxjF8wYCB2a1Ps llEpITTNIVIllVoiVC34yT BjZWxpYWMgZGlzZWFzZSBh cbCtdhNgu12mazWje1OfXL 2pfZdrAByVHLasHjKnEP1d PNXnhrUgr8JrST4aEMIplO MzHVTyjrtugJVaHPk3vMPf IKQuFzIhbQzzg6JeMUCyUF ptRM46jsEtIQ1hDFqxOF4p MUqvML2qRUHiBJUlXHDlHs QrgXLeFdYrmSJkToPlZ60u UdHBgOWgy4CjU6paMQ9ghK LeRawqiTDjUDOwfRrti2Fw aGUkMCTit4BcfCNwEOsgYA 4hGGD3Zb7cxDByUGVykaF0 z9YnBJnaNZVnNffaOESmYD kci1AeULLftPJUd2IwDB0C XHBhciANClxzYTMwXGVwaW AHo2BbGIXBPzmjrWlsEvUw rHGkKpX9PQPzmVRmKSM6VQ 6uzWzbHTQwSLn2AIpqEVEh W9XwS7HkVWmdBuPgRFomCQ ZvWYBoMWueZKGdG9DSSAUl CGJ7PhUmMKOxDKk1TTphG7 DPJSIaHYArGxC2BXY8UwC0 HFo3IESRJf3jLThxHkDwGW CwRwA0RDw0SoWnTPNwJnJx YHOuHKWlVXwoyLAkKE4kzC oxWOKmCPRmVUR1JUXidFRD o6HbHUNmFRkeFzLcXGRHYC YQSQ9INnYWMLXvEzWmgYKh RQ4ZLZIwawZvPKvbuPhcfA 5mxWYkO9tcZoNeUeduaUaa TmVzdERvYzEgDQpcbHRycG FyXGxpbjBccmluMFxzYjMw PKQhmXAYj9TsTBDTPcDtZY NpbWVuIEMgaXMgcmVjZWl2 RCPzjD8qSl0kdUFkuD1bzL ShLIxoTXJaz6n6tKP6aLBt uEY1dDFyoXwgImHkOS9lsZ QyTZMRGH05kBPnoxEmABYp lC7mWAOlUDMbLNF2gwxxBB ACGPK9rXVsi0O0YGytBTJ9 xR6drKatFoZqF5F1ZJJcBO Nga71czEN2joMdQjNbOYIf zj9fbG6kUTlkvdQbtZcipb Zyr9B6VHSvx3L4LKTspfOj xHQtnORsDXSzXbM4WQMmIt Y3YCXqGGIaoICjXRBeRV6v VGhlIHNwZWNpbWVuIGlzIG LxoXRlwdCpMONhuc08Y2ru CNEkaX1mz2lyVmRaIMKeXP NkmNGzdYH0WQGddT6bgJ64 noMjvyYBAP7xuNIqZV5GZZ NiMFxlcGljWHNiMCANClxw BTHmSPcza3UnMZoexXrjBL XtJfBxYFcXuIbjDPVMS6gf jSArVZtrEQZDLNwAK4MAZM 1QRHAdxRJGQTR5DN4lGQqa ZSDmO2FmW1WzekN9h7cgmD lsp8SpdTZoAT8wsQJvCI9G XHBhcmQgDQp9 Disclaimer (test code = [id number]) p5zmiFNeUKWnf9hwRYPynO FuZzEwMzNcZnRuYmpcdWMx TQabeiFnHGdha3BwW4UqUi AwMFxhbnNpXGRlZmxhbmcx FCJkUDP8cwXqMMDqXXwcFI DyYMjeWk6cpMWrbQqqJcAg DTEsf9onriVQBMyqDvKoX0 28VWBpGQbhi1fcw3FzWFZp hLVvq9Q1UCRErapsoFa6wD onE66bw7Z4KeumX5fkNECf NMZdY6UqMX1tIYPpGfd0MF K1JJU0BNCyCIXjW8VbZW9g GETsdSSyHCa7i7pveLcyUF LzBTX8h8giJAgrubOcCI0i su3zjXf7e9ogscFxOMPaSP GqbWUZVWHkZ5CviLufKq7i gNh6mFriGprwTGW0Een7MF 1cwd03xcc7iXqjYJFgoxim TqM9LSycTFSrulmeEOt4UX lwRWFdgZN3QJBvcBVdB8Pp MBOkJT1emrx7ALW3BVvhLI PlWzT1MATrsAChYCNluAzb MHvti938PTR5OvOvUL6lG2 Fvb7Z1jW0vwKNuSWDknHPi IiXxIRAxsw7wpWQqDUavo0 AfWCZ5zlF7mQQnqAJzMFSu KF24Olync3CkXsgrw9DoR1 5vnUR6EXyis4moDH7xYtU1 psRlJNmbx8yxsC7rBtE5EW qeQN8tMI6cFDUlkF3dypio XHBnYnJkcmhlYWRccGdicm PqZk2tyBdvTLL6NOqnJ4rr oN1vTeS4QYwsM3szjH9aHC t7UYzpmVD1DTQncA6iME2x azqcv5yzVNnxCHjpQUMcoa O4zjA8TCQviVLeW8QjzV2i NQAfFT9vqwrpe0uxGTI6GV kkTWNvLBU1BgRnALClb5Kz kva8YyUnt2GgjUCiXCvfA3 4jn020RJQnkhAsZ8jfeGQl xmwsbNEafmtrGKmtmnA7UA VnpqTjf3ZvCOIoTQA0DCrd QGtxdVWoWZYefHyic8suG3 RscGFyXHBsYWluXGYxXGZz MjBcbGFuZzEwMzNcaGljaF zmADulLkEuZIUzDSorY9qc ScWpA9MkNMFvCcUyeBCyL3 ggVGhpcyByZXBvcnQgbWF5 IFlhJ4d3NHOnheRpyMf8me SjKrNpCFLoWTL1GDlzaFZr IKYla2ButixvfPZfCf8wuL GzZPBisT8lHXAhYMOpIRib ZR7zjPz5HNMJfXEywZBaKk ESGDWlTL00nnOkUPZSrexy i1T0HRfmIFKpa3BcwLBgJ9 nqz1KnUDUpk79jQW4gl7J3 v2fuEIY6YL5lq9YuIAKsgY BqjKHmJYHra6Nctuqit7Nw RAAxieIpp6KvBGNaekSlaH UqOOWcldClpk7pduExVUGy PHOhS2QcqjvpwApxxaExKG Xgqw3jecLrRZI5TVEVLIOf DONur9EdrI7dbANYFQJ2kK Pvdg2hbyKZeAChKNFoup19 MQLfTD6sN9vjLYXmCJRyqn FnrKFcy5EpIETbzYQ6jYFl RZ2MJwDRq95bZRWtLQJUzw WfATSqmOucdKB3vjG8uX8s IChGREEpLlx+IFRoZSBGRE KvMZ3dvjZda8CbysPkkXjt ZJCrtRIjc3QloIRum7MmbC xvg8AoaDCfyVKpTH7dTTBf clxwYXIgVVRNQiBMYWJvcm B8z9SfQJHxNPIeAMM9fLfr kdj8LWKhjA0jBGKwB6hdab ttWNseKLYuo5SeyB0roVMX lKHgw6VutPIwzKIUoTDmJI 3dmsZrMJuGRZkHTTS2mdAa LOJfo3QtUOufF1pxK33mrD hnlZz2yJD6AFX4lE7nXka+ IFxwYXJccGFyIEFwcHJvcH BrIFJcxFaylhUvJ3KrhjIv jO3exZFbimMcKF7uLG7gJ5 Y1pDJbXREdukTcz3zfZVqh dmUgYmVlbiByZXZpZXdlZC Iei4BaUMgfWER8LTxrocUj bmNsdWRpbmcgSCZFLCBTcG AybYKjODV9EVqoidNabrDf RO5ifX3xkAtecI2eiHBjnE R9yzdsASYwEEWcuWnhOWEl CZ8toWkjqV9bGcIoKpFdVO hhWD1xFDPvE3aeaIKuQCDs ULDiT1pyOlWgkJ8ceIndAI xjZjJcZnMyMFxwYXJccGFy XHBsYWluXGYxXGZzMjBcbG FuZzEwMzNcaGljaFxmMVxk HcGzGOPbSRkxM3oiBzJeT9 HzUOMjWzMoeSLzO9xwXRhk CZC7JNSdNA8rnPBbZL45bM Nfh5ofEAipyZyffk1bX95b uJHqSUlriLvdXNOqk77rt0 KpARYuqqBfqu9tILEtnaI1 uE2zQMWcsApmCAWpmJIoWK Bep7FiYFugwEMqvaKbKTgs AGBsLGMloGPmgxH5ydEjqs AadaJtASYqpPcoEODfy9Bo CTRrYEbxk1Uqir3goCMyHM YuhkAXhYhjtXMviE9mS6Ca FWRkQBSjfy7cABZicJ2tAV xuj7FyzbcxQXHeGJAcFGEa kdXdxj1hQIOqsFTUCV2PLE wvpFNbf8KfocKeH0nUEAY6 NUQwNjYwMjgxKSBleGNlcH RhMKTqea35RXWmbA3ebUaq UGHxfB3pfU1vgJkwwE1nJt NnGlFhOPgiYP5pUXSzS7et rGIeQVXeQRQgG5xrMwJniY 9jaFxmMVxjZjJcZnMyMFxw YXJ9fQ== Embedded Images (test code = [id number]) [facility] [id number] 19:23:05* Test Item Value Reference Range Interpretation Comme nts Case Report (test code = [id number]) Surgical Pathology ?Case: [id number] ? Authorizing Provider: ?Dominic Keita MD ? [...] HPylori ? Final Diagnosis (test code = [id number]) [id number] FuZzEwMzNcZnRuYmpcdWMx GNgzmtAiZXfiaAdwWIV5WM VzWW3sdSaaaJe3gMdfGDDs laL5jHYzZPohw9knKYR0e2 lvyoglEIUdJGdnHw6uaJIh wSkyOgMzEKReWNu2cH76QP DrsZ1xmSSxIKo8RFYrwBZu usTwXqFxILXbmKVqtNQ8EF XpZP2pxocaERpuCGknAKNw hcA4XMNmoKJvW6NoJWBeCJ 9htcfbSVP6UIlvHVAeISB9 NpJbZHMmq8Smlzi4XtEoxP FyZFxwbGFpblxmczIwXHBh skHMSmANAC9EVIXXKDVDJ9 aAXTWLXS5CJADLOugalMLb XVWhCLVpKAIGWC8IPIKjD6 rIFhYmZJ7PJFOfIQAxwYBx ATHgojHUSgDJSU6RVB0FAV wgQklPUFNZOlxwYXIgICAg AVGxNLqGG0EXJFBcXKZAA2 IPQIxESLhhFf5nWTVVPA1F U4sTO0OAJCGEFH7LQGvsXV SvYXXeFSJpWD9KAWeqKFUB IX7IVDJUXJGFIBnVQKXIGU VHBNpLOUCQY4QPXXzXXGDe gnemNFRnXa3qI5IUZOERPV wgQklPUFNZOlxwYXIgICAg BMUqJETTI2ILCeJEOM7VH8 5DDEJFCZIEEZ3HCEMOZPiE ON6VHXLEYQBHWOVLU1SegD FyICAgICAgLSBOTyBFVklE CS6GPEYQNsDZCExIRMEuBQ lTRUFTRVxwYXIgICAgICAt KF7YFGqwSDXNSF9WKTPQIk dBTklTTVMgSURFTlRJRklF XWLCPYFJTG6UOh2FNJFITq xwYXJccGFyfXtccnRmMVxz m9AnD4FsEaNmTHhivqWbIF PqEuhbhypeECLjSLC5lrEy QCUgDTubRTAyLMflLz5bcB SpzTyjSsTwECEuz2pppwEO RPclVvJqX158QHLqWWxsz7 leg2XjWPGpdOBot7F5LFNX ahipzGf8z4wvFgBzJuG1hH VlSHazK2klaqIcvHVxF0Cz ySNvnBr8jOuwR34pv6E4Pb ipH0bsBHRlTXScA4KgJR4g LVTdRow8AWP8OTJ4HCXmSY KoC1WdEL2cMPOsfEGlXKl2 y6dysLuhTFUsKNG3x4dgVM hsfmC6AR1ejx3nrGo5q4hz czEgRGVmYXVsdCBQYXJhZ3 QlaYebKv9ejIh4tKggSvzy MSW0Ewb5PX9zaa36wpl0iA uaZLKydrrwUyJ3SVbkEIBw bnobYRe4SExcEQCstSX6GP AjlHZnC3PnIBZgZV4mjxc7 AZW5HAjuKTMrFvV7SRCciK BlZFCofPtwWXfjb712JRC0 YiWwHH4jT7Kka6E1hC6gvY BnLXYqmXFbRlPkMMRbna5y kUKnPXafz5TvMZD2hrZ9rC DrqXFuYYHxNA99Nxqht6Ry MwupMQO0FUEnjoFky7Oio4 wqJsGqtvYzH9saA1LcNMOz HZXqNTCfLsYfugGlu6Wan6 GelJKgsJr4i8tpMGGoNYKk sIzrx2tkVUO1VFNvH3M2fM Giq8xzKVzlSQGshJI7duV8 HYQvlWNgY0AhiS3jZALmXB 0wdfo2a6ruUWD8DHwzZEFa PnB4hcI0KFCmjDUkXIKrzG ofKBfda253RXV4KtZuDQSc k4AkH3HmtSmjB07kuSadP8 8sEPOatBfaxA7jvPwrkH2s ZjBcZnMyNFxxbFxwbGFpbl xmMVxmczIwXGxhbmcxMDMz QOuiK3odBiMuZVJleJqhTE qgn1FbMTGoPLKkKzwfdcMf XHBhciBJIGhhdmUgcGVyc2 9uYWxseSByZXZpZXdlZCBh qCrsu0YmH5trMM7eP1PwcP EsmhGvlwEdWRzaRGCfl5z8 nICuhXkke3FtaBUjUJ89fx RzDDLaUIN2ZDCkq1tuJM63 fiybVnPayF19bgZcyvPoOM Rrd0ndY8nvmKXwk7Cud9Cq dlWlQJxea9HhCT0piOLrjg nbnKF8GDZweJQvgwRiakT5 wZjeOOXzwS6mbH1xiZomrC 4iKqTuNaJxURksMS2rNVMf U4eezUTzMYAcLZGyX4pcNv LywL6wvRgsAktbjqG3FDTo cn19 Clinical Information (test code = [id number]) Shivani Schuler is a 47 year old female with IDA1. Gastric polyp x 6 r/o adenoma2.Duodenal Bx, r/o Celiac disease 3. Gastric Bx r/o HPylori Gross Description (test code = [id number]) q7dliZCtKOAcnRZBONA7GN EnGG4mpNxtmUk3tJcnISHm eeN5nXNnLJfni9pqQIL5d7 ixchMWWjlyMWHcJG7rODsa NPHkUI8iAcBrCQAaAxYxTC BhcGVydzEyMjQwXHBhcGVy hEL3VAPjTH3xsutpXRwoYP jdCFBaszC5JIFveECkZ4Zr DMYfEB9onpcnPGV3VDUUJk aiHm8odPWlqDkaAiTvMlRn YXJzZXQwXGZuaWwgQXJpYW b0cK0MFqwcTYO2TAMMKrli UuglgUrkr7NvkLIaSJIdZX xcaWQgNTEwMDAgXFxkYiBP MgYgOdO3Hbk1WBA7LcP0OW d5JNZYCOPzSvtpTBE8IwJ5 GQk3UMRqEL6yDMtzqDDbEU ezUusyBFldP872KEqjARWq Y9YpA9FpMWffMiDuEEpsRJ UzVIGtASyqMYBvF0NTVYZg QRQ0CcFmJXQfBXd7MKwdC2 EGUQUwJRHlFzS8IFEfZnK5 ZJw8RYGPRb9pSXqtWjZkNW f7TSM5ARp8OeEbDBNtDjCz YRStWVHjEUxsgCUcCM8gjB gwTXMiIE2ZGVKaDUjuYFFg CsXvQ1HSW0bWTJ0eRNtfjN JjaFxmczIyXHBhciANClxw JJVbJF1URYEqTIbjWWl4ex HeXEBbFiWlABTiU22el1HO c0DaRS7LKRm5cpGcfcprbJ 1sMCJewlYeCQlJkKOksS3g rrTOYTotKQDoL4ZzsuTwDF zxVFWqkk1nkAviKIrxNvAx bGVkIHdpdGggdGhlIHBhdG fkdmIiV8U8heOlFI6aKZML CGXqpA3jIQUnJAOpc5QtuD VtrPokT7LnsCBtRuOdw3b2 wDL3IAMfwfIgKFXosSSbHF Aesu4uDQzjBbIrP1T1DJVi UIWna47vkHV9iiCvTbNdsK l9hFGfFRI7QT2anNrlwhDi r1r2nL6nFLMoh2X6CEUvi0 K9LVGqybRbiVIlcBEnBSFd DF3gqyQyPT07FUUwHOmxML dnKVA1FRU5CRStrFBfq8cg liqfPs7oZDevRA9nCYdnHF 13CHSnSTzzPPDmT0YeB9F1 DCggZTQpGQOmcJMbpQ5kdx OsucPvxSk3DUQzHVQ6eLFn aOkyRLGjBsjxuWQ5RVXbOu OtxmVdu2ZpjDy3jYGyGSyv BRSnzJ0huG7sKAMnGPUphl LAGmwuFTIiPRtwo8VqNLoh cGljWHNhMzAgDQpcZXBpY0 1tr1GQz1Hdv6sapLnse9Ha cUQcIQ3anOKwIO6Mf5hkEX KgnZMqOVK3MYpjd2erBXmh MON1OCOpLnClKPWvXP2SJf ToUVrvYVi0UEjcYQg1JQb1 QV9KEsRzOLQaOsi8XxF6Ye FbKHg9GYtsKX2JOLA7AQIn RMUjYEjnVWY6OVIbGWk4AI IgXFxzcyAzIFxcZmwgXFxu Q21gdOBvNYelCqMeBAuwpJ smLWUsBXJ9CC7XHFLrMdJi W6QSW4qKEN9jXcthofQgYW HqjsXSUgimOWKzTD5GSFPw CYzgXLf7nsZmIMUnUaBmWK WqY90iz9DKo6HoWM5YMQn4 nrXsgbmjuJ4hIQHfrfRov2 IzMFxlcGljWHNiMzAgDQpT jSUfqU4ireRFGOniTNWnP4 GhbaMxCHatKEWezc2ymNnd IGxhYmVsbGVkIHdpdGggdG krXAJlvDtuslUiG5U5wgTl UP3cVOOAKIPreX3vNKQiDS SfYJEhHEXfiA0bJPW3j0Nc bnEgMODYPQQoeGmpXF66hW BjZWxpYWMgZGlzZWFzZSBh vwUwmrDqh69dqaYks4TyWK 7rxQikIWvXQYdoHqBbDM9g PSYmuqWfd2GtNB6eLDQwoY PkCXKpjbuyiFFqKNl9mUNy DIZjXzKqwTfiz5ZkQIQvDG suJU84vrHhQE9eCDxjVL0n CDojZY5pLAGkEGCqFWFnOw KupOUaCbEjzRFzCgHxT16b UuFOzXOnz8NtF6giZH2amB OjPolgtFFaLCSoqCfmj1Xx bLQhUONiv6LyyFHwIEtuKA 8nINR4Wq9mgMEcRSLxazS5 g1OrQZocOPBkCudyLHLgBJ qds1MuWGCrfTCNd8AuNG5G XHBhciANClxzYTMwXGVwaW SRk7EjANWWQlygiDsnXbWa nMGlNrG7CEWhqIYcBHA7OH 7xsAabGDEsBWf4ZQogEPXx G9LvJ7ByICqmVtJpDAwoEN SqJJRmNAzmVYKiC2WJPZBv JFI7UjTgKEYxNEs7HBylE7 CQMIHuUXDqFsN0GZL3VjE6 SQt6DRWAOw1pCNctZnYzNA VwQuX8GYt6JaJkCKUoYrHx GTRyMKCeGWeqhPAtBU5bjF bkTSOaVMVgNPN5WZSykRQA a2KtPYLbOUxnGfAeGIFVLJ KHJV3BRkKHGWEcEmMtsVKa LQ9TYZRtdyRpOExhmScswA 5ekCWdD8qeKpCsTmykjFlw TmVzdERvYzEgDQpcbHRycG FyXGxpbjBccmluMFxzYjMw EXGmiRRVf3HhDOFFNcYyXQ NpbWVuIEMgaXMgcmVjZWl2 DQSgnC7cXd4ndDOxrB2amC BhVRwlKCKgn4g3pYJ7nIEs nID5tMUunQazHnWaJL9mwA EhIDMKJL77kPXjdvLqFBAi aH9cXCJvIDOaNTO3cgrxDH WCFZL0sEJlx5C2HHmtKVL7 sY5fsGscPkSpI4M3VZMoCC Oxh95xtLM0pwUmZlTpKKSr ld4erT9lOCsbqrAilLqerx Kug1E9OWFvu6V8IJWwzxTh fHBrhNRyUNChBjF1SRHfKw I6WKBwTSAgqZBoZZFfKO0y VGhlIHNwZWNpbWVuIGlzIG TexXZcdcYjSOXuoz49B2cf RIHdtA0er9uwRtWiFZZnMS NvjLNzcNV8EPZrwZ8aeH27 owStqqUXEF6wnWCvII1HSM NiMFxlcGljWHNiMCANClxw PTVtZXknc4IfNCrlsXujYF FbZwBlBWdXpIqnWOZIT7wx mHWzWUzrNDVFTWwUT6VCEA 2RNVMalGLZPNJ9ME0yIYrj XYLsP0OtV2PqlnT3v3fjbG wma6HwnCLsBA7pvKPpVY6J XHBhcmQgDQp9 Disclaimer (test code = [id number]) b2yevOOiWHLrb5ogVOBmnM FuZzEwMzNcZnRuYmpcdWMx GTisajAmMZlcv7BoZ1QiDe AwMFxhbnNpXGRlZmxhbmcx WMTiRTL9gjXfXUOhIUafDJ AyAHtyHo9boNLkuRwuAqKz QRLcb4ysbbVUFNzsWdPyF0 76MOVuWSuwm6qcz1MhZDGf nZDkp3E0JLAFjpxyxJe8zY gbH86pn5W6WfxcD8akPZDn NRFtI2FwMZ8oCRFaUqa1AT K8LYV6LSZaWOEeB9OoHK0z CSVvuHLkFZu0u5selMgaWM UyEUV2b0qtSOohvdKjVI4w gy6gwRf2b1nprrRmRJQhQF VylTXPXDLvN1FlaNjgGi1x bUd6gSpvJlddOTU7Gvs7HI 4zke04myu5oUqsYAWfpkxf ZpV4XJqtPONvbuzhHOp3AB plJZYauIG6AEXyuGUoH4Vf PJQzMX5blfz4PBM5UPnrXK QsHxA9XBRwnKPxMXXjwQot DHuss017QXU1HoMbBM9oE7 Ast6W1vB9coQEgXFXojOYi EfNcBQDcyv1jeTMlRLwfk6 IxQDK3qaN8iQTdeNYgMLPv SG66Svrtj9PzZzvrq9XbT2 4leDC0OKseg0gpPM3oTeJ6 uoBwNTdeu0yrpF7pOhQ1XT ekTB9oRD2dQJIjhT0jthjn XHBnYnJkcmhlYWRccGdicm UcWc0nsGefOQC5QGhnZ6zl eB8sOuA0OGxvF0mfqO0dWB p0JJqaaNY4KXNlrN6dQN7d utyvc8ejXUtxYOkhBWYtyn Q3yhN2VKOljWIxF9EknU2l RAFjNT4rdbiln8ptJBE0LD loTHZjUVV7PpHkLPYwu8Ac qlu2FoAnz0OvmALxMHoeQ6 4bw965PZUzqhAiB4ujuKBg vccooTYkoxcbIYwylsT6LA OjovThs6RwBGGiABK8WNeh PIdmpCXaTQQvzVwdr1nvH6 RscGFyXHBsYWluXGYxXGZz MjBcbGFuZzEwMzNcaGljaF zsRGvjMwVjDYHvCUvkR4du XzAfW0YiFPMgYhIttUMnY6 ggVGhpcyByZXBvcnQgbWF5 DLoaV6a5THYiqpSueDh6fg GkVhLyEKGeAKZ7HJvfaWYu DLLei6BwbffavVQyPn8dpH SqQQJwuK2kNJDkFOFpKPjz CD4ytSh4ASKRkPQfrHUbKs NGLBGxBW60orOiVQYWoqng c4V3ESsmSEAzd7MnsCAdK9 htn6KyYDDjw25dAB9sa7P6 n0dhUVA3PV3mg9TsLEXjkG BjaOFpPVFje3Nqlchzu7Aa KRNpaxGvx0RvSLAddsRkyK PxSHVhqaJatm0kiuBpHTLv CQJiH6LqbdlfrCrfukTgRS Hacs3flvOkBEX6WZHZOMNv MTQoj1FdbH9ttXGEKIF5qI Zhtu2dflHBaMGuONIkfn69 BRMpIW8cF4vfQXUiDZKbpv AzrDJdx7FgJYQwoQD8aNCu DB3XShIGv11sMBIbYPXWoj OfTVQltCmatEN0rvD0zH1l IChGREEpLlx+IFRoZSBGRE LcYE4fklBpc7PdouOkpBaa ZLGgwSDsd1NywMDkq4RiyW eba3FedWGewHLiQX0xWVHt clxwYXIgVVRNQiBMYWJvcm K7g3OtKRFiZHEzFQJ2nBny uku4SOAzfG9xXPAkK8paim buRJceFAOqt7HggI1wcEWQ lSKqu3GwjJIygFAYjCAlXX 1xzpIiIGjBMEyCMAP9veMz PELbn3BqSQvmU7qmN63leG kmxNh1yLA3WYU7hE2sUgn+ IFxwYXJccGFyIEFwcHJvcH LyUGYkmTwivtGwG8DdehCb oV9izMDmudNfOS9nLD8sO8 E6zHCbOFSpqtUxc0jaOWih dmUgYmVlbiByZXZpZXdlZC Igp1MwLKzkQHV1CWneduEv bmNsdWRpbmcgSCZFLCBTcG WyiIXlSAC7PEraixIwoyYc PU4udB3mqOplxV1dnXTpcW Q6atqhVMLvCCVczRulFEKu AB6tcHwcrM2kHgHhZlCmYG baKA0fINWdF8esrZToJNUf UBWoC4ftMlKdtV3dvNwqNX xjZjJcZnMyMFxwYXJccGFy XHBsYWluXGYxXGZzMjBcbG FuZzEwMzNcaGljaFxmMVxk RlSzQECxIFjaT4xuOxIxC1 SuFOXjBiHjcXVxI1bvHOui DNJ1XIAoWG4opVWjTE04tD Htz7kxSYruaFgtcz7iE35r qHKgMPyegClsBPQbj61zp9 FwIITdcbZlpg9zFXWleiV5 oU6tKRNowEjqMPNtnWDqAH Aox6BbBQlbfNQpbxQgYGts WLJuQHPkeNMkucM2lxIjrc WmrxTcLPXviKqcLVDbf2Jr HKXpUYgem8Vfxy8uxOFkSJ CrekWAlXxshNQxmH5pH7Sd TJCvLCQhaf6cXWWsiK3bVT omp4PaddetTCCwBDQnWJWf qvGvyx2nMRNxeCOHFJ4MKI cfgJZfd8QtnjVjG2aWVNZ2 NUQwNjYwMjgxKSBleGNlcH EbTACtxp97BDOjjI2bcTse UBYuiC3uoM1ooPdpxB8sZt BrEdYeOHtyMG5cRGVlS6uh iJTyTPGxVNUnB2seFmEouE 9jaFxmMVxjZjJcZnMyMFxw YXJ9fQ== Embedded Images (test code = [id number]) [facility] [id number] 19:23:05* Test Item Value Reference Range Interpretation Comme nts Case Report (test code = [id number]) Surgical Pathology ?Case: [id number] ? Authorizing Provider: ?Dominic Keita MD ? [...] HPylori ? Final Diagnosis (test code = [id number]) y7mgvVGgTSPdk0paEOCbqA FuZzEwMzNcZnRuYmpcdWMx YRqtqiAhNXnbcQpkETH1WD EsLO8hrThnmBv8hRtdRJAy aqH9jRBnLKbwf0gtFGJ7k6 lsjhmmKGDnPQeeAs0ekKWu uXxdKkTeOLErQFj6uI71YQ BoeJ3wrWJwQUj6GVHbcLNe jaHvMcBbYIJdnOKgvUN0WL BmSK6vttoaPSutSNreMOJv pbD4UFCzzMBnC1XeWWOjEG 6pnacyUQP7DWutRGJhTSC8 HqWhFDXwp5Sguqz3YqKnhO FyZFxwbGFpblxmczIwXHBh xiGMKqWFZC6IPNVVIOMNJ1 zCMYKBIU6EMFTARijjgSKw TKYcSRApLUHSSW5PJVXxT1 yZIaOrYO3RVVSrISTneRJk OZZpbfKIEnTJXA1BFQ4JHP wgQklPUFNZOlxwYXIgICAg BKXaMPoJB9VCNJByBKWBA9 NUYPjCVIyrTq7pNMJBBM2D Y5oRV8BHUYVVQN9TAUaoKI IuMXYhZKPbBC6RWSrbEXPE OL3TICBSEJYYWScGNVAOJE QGNDpQGDMVS0MVQAnVQIAa znfsZKRwOw5yW1NIORMURR wgQklPUFNZOlxwYXIgICAg HJEmZTUEM1UDJmUOYK5HH0 0TXSCVZEEXZQ6EDNDQBOhU BD3OZVTFSDARCJHIQ8RgqY FyICAgICAgLSBOTyBFVklE DB2DNVEWLtDPWGpBLBLtZY lTRUFTRVxwYXIgICAgICAt AL6BTGsdPPKWPM4MGQBSGj dBTklTTVMgSURFTlRJRklF VBMUNWOPWD5MLm5TAYDONt xwYXJccGFyfXtccnRmMVxz s5SwN8CgIkHgIVqinwAmZN UiPitmlbnaKKAiXVY9paNl EWCgIWqgTAKwKVqyYr8hsL UepHgxHyMtYDWgb5zwxfWC KXylOxCmT717QZDpPNemh6 fvz8EkHMNrlXBde3W4EBFD fmxtiJl9a7lnZkSvElY7xB SiIZhmW6xwkvKgqFKxV1Nh wPUfiOy5nLskO05sw9Q0Tm nbA1ioBTOzGETvB4NfNU0t HNHyXlb9AYK2SOF5CTFsJW WiH1FhIE0qCJVlbEMuZMv2 p6aqlHakYSMwZXR2l8mdUL rcwmZ9XY9krj4egKv3z1gm czEgRGVmYXVsdCBQYXJhZ3 QofRgxZl1qyLp1vEtjPdiu ZOQ2Cog0IX4ekb51eth4aZ dmNQHydqybOfN9SZooEOFs hwilWHr0GJgjGVXjeUU0IU IaaHXhU2NwLHCdBM0glnc8 SXS8IGoiHNAoKrE2JQXyfM GkQSXkiPooGTrlk059HKC6 FwZrAA2rK8Lmq5N5vX2ixM HcTXLskYIyDmJsCKCihf4n cGIoNUlde4CcDBK2bnY8lL KarWOyZNDhWI44Iplrj5Oz RfpjRAC1KPEygvCso9Jtc5 fvTvXqimTjM5dnI6HbJBHn BEZfXGCbJxFvtlHtg9Ltq5 GxwGDnkVw9p8bwKGDwGFOw xWczq2ewQAV5TZUgU3V8tA Wzx9rwQYqdWFZgiMF0cxF0 JBAbpASmR1DrxH7qBMMuVS 3vkav4x5kbSPH3PNobPGWp DpG6urJ0OPRhrJEpHPAigE mpTMdlw229HPT3MmKhDMSk s0ZbU6JnpJiyT52ehFduD0 4gFCBmaXmyfH1zdVvmeR9y ZjBcZnMyNFxxbFxwbGFpbl xmMVxmczIwXGxhbmcxMDMz CRbsF2kfKiGyMVSuiVkfBG fgj4TgMRJkHEHoNxyhgmPl XHBhciBJIGhhdmUgcGVyc2 9uYWxseSByZXZpZXdlZCBh rEphx2KrQ4byPA2dZ4QcbV EaqxRkntVhGSnpLXJcb0e0 rDQosPkst4QilTZfOJ21sw CqKISxWXB4WBYuh8gvEF66 icioOcSenO11lqBqgrOzWX Ezp4npP2urfHLsw4Psz6Ds ceFbLXalf2HcTF3ylUXhfh fqaTC2LVYldMQuxwNedqJ7 pYksOOSfsT9ntB0vzHbjfV 1tPsOhIvZnWOhhHS8rCLUm B1vpoUZuXWAoIACbC0ujQb IzxM8saJbnOosraoY5OQVr cn19 Clinical Information (test code = [id number]) Shivani Schuler is a 47 year old female with IDA1. Gastric polyp x 6 r/o adenoma2.Duodenal Bx, r/o Celiac disease 3. Gastric Bx r/o HPylori Gross Description (test code = [id number]) h4pfoWWpPNZduDHPFHD5BO OhPH0hkVmncPv6rAqyMHLy bnY5qNTgXOkli2slBLM9b6 tmxoUXNhonJFBmOS5gMSde OWInGX6qQzWnOMLoZtRxCQ BhcGVydzEyMjQwXHBhcGVy wIY1SKSnVR6tselsBKzrAE atZXSspeZ4NXWxxCOtV0Pn BVWhTG1knkygWPB5UZRVHo jiXx2dfBCvrWbqQgYkKfIo YXJzZXQwXGZuaWwgQXJpYW l0hT6MZjsrFHT3CSNVJzfj YaonkIcor8QgnPYwLXIhVA xcaWQgNTEwMDAgXFxkYiBP OqOnWeP6Wcj4XLY4LjH8TZ k0UWHZAMHsCghpSFY2WtA2 UEr8CBKtZR4gGFlfbOJvDR jaZmuhDRulQ373NHprVKSq Z4IhR2KsSJkdQoHrGOqbCD BdUONzXHwaEPXeA0GMCWBo UGT1KqKzVJBySMb1TZbhW4 YGSMZvJGBzNfX9FARfEnE2 URl1BBHLGh7iOOsoXjKrOV f6GJE1NWj3PrZsANNiXiDz BLTvBYSuEGnmsGLxMC0nnK zvJGPnXT9PAZFxUHfaQWOw VpHbE8JNQ9kXWL4sUNjsdV JjaFxmczIyXHBhciANClxw JWTqVW2RBTEdBNwsBOn8ph WuHYDaMpRmMFJtL36cd0SO p4JjYM6GYRv2ryUwwbetnI 6bAJPckjYlJDnBbHSjnF3p enRLEJhxFYDfG8AorqXoXQ fqEGZqgn0shEvkRKgtXkEr bGVkIHdpdGggdGhlIHBhdG fhbdZhM5E0qcWwDG2iKQIE JAWwrR1nYSKqQMGlx5BasI SweNpqH2WosAVgBpIxm6w8 lRM4QYNkoaOqEBRtzRFfQT Mqdf2iDCuoOxWtI6K2IETp FESex80tcQX0eiXpFuCgdI n6zHYtTUC4AS4wfPimvgZg w2e9dG3mUUTmn3B2MIJvd7 W0MNRspqOzpAVugRPdYKJo HF7vfzFsJH73BOHlYNslRQ guOFJ5ABL9SOQsjCSzm1za dpbrQr1gRKupID3kUZsbZW 36LDYiIPzeJQJmU1LlJ8X6 SQfoZGYeMEFbkHHsfL5svc GiumSwdKl4JJIwHWZ4eGGp aRblCRSkCybzaQX5IIYuCk AzuiOvl8EhxMv9xKUiFFko WKDerS2xjI3oTHHyYTNwet QWGaflZIXoCByjp6FnZQfz cGljWHNhMzAgDQpcZXBpY0 0zj7VPq1Idj3zzpKzyw0Zw fHZmYT2ofQWcNA0Cr3tbDZ PonQQvPQQ5IKwed1lcQQxr DMU8TDEbDsBhOELiZR3EGh FqPUmlAOk3DTdwRXe0KCn6 JH2OKxIfMFVwDuk9GcC7Nw CyOYj4GNprCK6RJTS7EEYx QGDnUDzgVUR2YKZvMDs3VF IgXFxzcyAzIFxcZmwgXFxu C63jhGGbCYihCeBxFTeulQ ujOXOgIVB8MS1ZEKWeZcAs P8DAO8qKWW2xKifesxYiUP SvyoTHAfvbSCToUN1DKFFp FBxxQGg3cdDgXGAhOxYxPK PeO91fx6THc1SlLI7WXRz3 fmWgowbnpX3eLVAedoVpp0 IzMFxlcGljWHNiMzAgDQpT fYRosQ3rxzVAFZyjYZLwM1 ZwtyFbIWsjCJYila3gyUab IGxhYmVsbGVkIHdpdGggdG uvPGEihRyecdOuW7I9wiZs NX6jGNHUAAMqpM5hRFKyJA OeRKMkOKYejF0vZGE4k1Tx rhMwMTZUGVBjtSijSB84jU BjZWxpYWMgZGlzZWFzZSBh heGrpnDmi22tlbAxr1YvOD 9saWozRAgJSTktMfFhAF8t HNVbwnFof0MoSY6qPIDiiU NeFONqwdbeaJWuQPt7pQEl WDKzRrXqsFewl0BuJYXiTL mhMQ83cvLmYT5aMPqsCD6b AAqjLV8jUHLxFTSaXZGoAo RlfGHsPyEqvQZbYrVgJ48c XeDBfDMuz0XrY1qhED6npZ ZfGupwuCObAHNplKeqr4Ip sZSaJOMbr4WcwEQtQVwbMX 3yYET8Ab5laGSfEKLgdhD1 b7GgABbyCXEgArprPBCeZH gph6QcNDKqnHAUj5YkMQ8L XHBhciANClxzYTMwXGVwaW SUc9AbVGLUGnpgtIhkNlVt gTLdDkG4NRFsdZSjTCY7VG 9uzMpqPRXfSHx7KEvzPOQt Z1NbZ8KaTUzdCeGlDMxhUR SbDHZxVRrpWUWgS6YKYUNz IPS0LpWdEFGcWDy1MDdbE9 MDYMMsNKXrNkT9ASY5TgV5 BJa4RRRKIw8qIBmmQsWkAV TbCrC3LLy2JrCwFIMxWfKk CGSgCZHgDRcfjUSmZR2ugN ajDJFfFWJlYKO8TYSrvYSG h5KmEQLuPPaxHlOmEBOLQV KCHD5JCbYFTZEnHrRkoTHy EK3CQETmupBmCRrjnKznhB 7boLGvE7dxQvAxOyzqrLhg TmVzdERvYzEgDQpcbHRycG FyXGxpbjBccmluMFxzYjMw GHSonDJJo2TdJRIAJnDpXA NpbWVuIEMgaXMgcmVjZWl2 UYNuvE4zVu1ksNAgpP3ekT XoNUwkJJXpg3k7bLA3gTAp vNX1rVPolFhlEeGrOT1ikZ LwKUEGUL49tYKbcvUnYRDg yW9aOSYqYMUsAEC0byfaQQ JIJWE2dJVad2V8DXstPQK9 hD5ftGhvJvWqN0I6SQJiGD Une22ajUI1itOxLbRjOMLa sh3srO9yGRmnwdVklRqhfu Rwl1L6RVQfb9I1LHMshoCx uNCnxLMdWTQrCkI7QJKfHd N6FBAkLWKvnBXmXULtND4t VGhlIHNwZWNpbWVuIGlzIG AkyDEoqfZfOIYuqa22P2me AKSfqL8qp7chWdNdJAPvQJ YvqHAebZC7IIXogR7sdT89 czYxexLCOG2fqNEeCG0YMN NiMFxlcGljWHNiMCANClxw PTKnRNwfx3NuRZoqsEqcOA VzMdJeSQyXuHqsJYPTB9oe jHOiGXycHQFOWNkIS7TTHW 6GESSmhFHULDJ9CJ9qEHew EVLnX1HkV7KhhbS0w4vkdU kvp9MlzZKfXU6phCEjZO0N XHBhcmQgDQp9 Disclaimer (test code = [id number]) s0lvxBFfQNEdj7fiHQYgsN FuZzEwMzNcZnRuYmpcdWMx GNkbvpFaHSiav8SvZ6NyUe AwMFxhbnNpXGRlZmxhbmcx QPVwGQF5bdKmUJAkVNimZF FhJPiwQz5ghAOmvJciRsOn LWVot3cfibYLYCleCrItV0 70RNNlUHshg3bsz8SyAVEv fYGrx8U5BLLNbqxpwWt3aV uqQ72wt4H1InxfI1wfYWIm GAMrO8XhVT2gGPJwOne3AF M9XGH6WWEbKKCkI6KkEV6d YXTkuFCqBSt9e8zljCowKC AmSUZ8c5jhZCloizYsHL0u ba4psXw4a0tjscZjLGInDM XezXNGJFWxA1HwbKuhVm1s vAz6lHzjAfvcCHY2Rki1PO 4nhv12gxl3jBnqREMuywlg XcD1QXzaBOXqnyhnCJs2II pjVVCjdPR2CBTfjTEfM9Iy DMJoBS1xmjx9MKP2TYviTY ZlSkF4EFOtzDAjVHKacJln SEmet320VYR5LwCzZD3vL5 Omv6W3aB1otHYrIVEfaEDt MuUePPVppi6gqUViILbci6 JzPRQ3dcJ3jEPojTJtDRRp ET60Rgeys2KzXyvaf8IiC3 0noUE5XLyck7lfCY7jYqM6 dmTuSTirg3bhsI6iEqY9UX grED3jTC2zBQKicQ0dlnoz XHBnYnJkcmhlYWRccGdicm VaPj4wlIorXHA7ZChlT5vq uR6fCkK1GZpzL2qwiU4xGF w0AWqiqCY0UNXirC6uYV9q qanir9qoLTlzSHuxZKRkpj R6ezF7GSBcoOOqU9KtfI8b JAJjQV5kkjrms3qiMUM8WY xgJLLeYAI1PkVrBSYmf9Fn iwa4BbExx1PzyZWtQPtbB5 6kw564JFItzhYbA8pnpBLr zfmiqAEpmswdFXovysL9SJ DwgvXus7QjATOwEPJ1KXul QWrrySWnHKPawBceb5rlB2 RscGFyXHBsYWluXGYxXGZz MjBcbGFuZzEwMzNcaGljaF bjPQksMwLuMSJaPCgvV9gz NvDmL5YuXJNjLuSzzJKiB0 ggVGhpcyByZXBvcnQgbWF5 FDmqJ7a1QOTmelAmbXf3ue EcDoAlHWDnLFB2ZMhmoJYi RAOwq6TibknamKZkJm0nkF YsHOXsyY2xQFPiOOBbLWvp AE6hdDr5JWUUeSKwsCNjOy WGQJSeRX90npIvHLLTlwjo v6D5ETllCOIbt2TwlYWpI5 vto8GhZFJmk64pPN1am7O1 r5plANE5NJ2ad9NtXJHhjM KfqJPoYRUlw7Tkgipfb5Fh WHXslkMwn7TyCPJhcdIelW XnEXFrrcYfbt4gqgYeDSFa BHUgE5HjvvgjiWeojmWtUU Bmtq3hnxAqNGO6JMBKKOXh ULYuz2VamL8jnZYZIRJ7yY Wkzg1yutMBmZZsSVKhyh86 MTDaCI5eS2fhXFNlIURgqo DqpZHao4PxMESnqTF6uFOc MJ1YRuYLc85aCYIaZNKOpg VyKLTfjJephHF0rxY3bA2z IChGREEpLlx+IFRoZSBGRE OxDK3advBzz4IccjPfjDsl RHBfwEUwp6AogBGef3BlfH czu3FjjAHciZWvHV5bMAIj clxwYXIgVVRNQiBMYWJvcm F4u7EdUTSrBKRqVTA1bFxf mzo1PDLqhD4bMVGpV9kasg lhJKhnDWVvl1GsaX3dqRLB jZXba4DehDBkbVZGhUBzRC 7dtpFwJBvOXIkRVFR8dbGi EGGlq9AvVXyiG6bnV09toX uzfAr0uQR4TWC8pE1vZsi+ IFxwYXJccGFyIEFwcHJvcH EcGEVxnMlwygZhF3IbtyYu uN9cqXQnuyEtYF3oIC5tR6 M0fPShMNUsnwZjm7vbLLiz dmUgYmVlbiByZXZpZXdlZC Jbg4VtFBkwCIJ2HAcmcbHw bmNsdWRpbmcgSCZFLCBTcG AvxBVeNZD6EIsocdWoamDt SX4boR0tuVqdnO2ecBVlaO X4vkvtGIBbXHIetHecLBNc JC3obQsnhD9kRsGySbFzYS prFC6aXUMuX5pvyMZyMVWo WUGoS2zkVjZhaO6qhSsmFQ xjZjJcZnMyMFxwYXJccGFy XHBsYWluXGYxXGZzMjBcbG FuZzEwMzNcaGljaFxmMVxk MtNyAHAoCHzsC4koWtZmC1 EyZBPzXkVldVOmL3zuKKgt XNH2PJXrHH2zkTNuMW88aD Gzu9vfRIeulDcutc6pW02t pIXsOMqnfZyqGPGin48sr2 QdTOLouxAeth9gKRXbfcA2 dT7aGPUxqFuoEFCksWZiCT Odu4DlXKvvpNArozKnKMcm ZMMcTNJkiYQwiuE4ajTfsb PkkrSyKWUesEekTPEzj1Qx FIZpMEvkh1Ojiz9vgPKeBA BdrpXQsBlihGDeiZ4sW1Or ZDZoDZYquy0uFWNxrA6cEW rcw7NsaorxDTKsRSMlPVRf ivUmln7aDSNmuSULVW9NBG nnbOLno5ZbvcFwH1lVMCU4 NUQwNjYwMjgxKSBleGNlcH OiWNDrpp86ULNsmG3usEpo MVPmwL3yfW3bgYkgcH2wJt SkSzTuIEfdPX9bUKNiO8ya mSTwZDTeZBMqF9loRiQriG 9jaFxmMVxjZjJcZnMyMFxw YXJ9fQ== Embedded Images (test code = [id number]) [facility] [id number] 19:23:05* Test Item Value Reference Range Interpretation Comme nts Case Report (test code = [id number]) Surgical Pathology ?Case: [id number] ? Authorizing Provider: ?Dominic Keita MD ? [...] HPylori ? Final Diagnosis (test code = [id number]) u9jhgDPtBUAdm1ryEZNptB FuZzEwMzNcZnRuYmpcdWMx SRoinuVjHAmmoQkhHTB2SI RhBB6tyHluaCu2jWkaXTGx rfU0tYVdIDagn6wdHMS9s5 iqxntgNSIeFYlgFr6odXSv wSegVbFlBZCvVTq8bO70KJ QjgK5ezPYuBBy9QOCnzLWr bfRjFsJqTQBqrCCnzKW4CK HxEO3suacxUIqfIXmwOGKr zjW3NURazDMiU0AeLGKrPZ 0jntvnESZ2CFbaDIFmTRU4 TmYcKIJcp2Gjwhe9KlTrzI FyZFxwbGFpblxmczIwXHBh dtLKMtSCRJ4JXDHOQVHYX8 yWHUJRCL7HJYAVNljxaJHh CWJeCUMoWGTYKL1ELWTmN9 mXVaLkAR2IZSAiOKCypNXj LJQmuvOCZqIZLQ0UCF6YZE wgQklPUFNZOlxwYXIgICAg ZWZrJFwCS6RTVQAlLYXVK9 QDQWsJBHezWq9oZWENUJ2B F3kHU4PDSHIMNE0QAKqhBL YrSJDeCVOcCH1OHSsgKCGT LT4AAPUZEQTCBJuYQTYIDD FDLXqMXDJNF2HQMBnZUJEp xshoIDGjOu7pQ0VFMOUGVY wgQklPUFNZOlxwYXIgICAg UBVrYZJGS0EUDmAYRJ5ZP6 8FLRGBIXPGYW6TYXLDZAcO IG9OTVDIOBHXRYHXW4ZltX FyICAgICAgLSBOTyBFVklE HG8AFGPLFwVREYxPXLGfAJ lTRUFTRVxwYXIgICAgICAt GE8BICjdXJNVHV2BIHBCVj dBTklTTVMgSURFTlRJRklF KPUUZGEVAY7VKb2LABLZVv xwYXJccGFyfXtccnRmMVxz m2BoG4TgSfSgOCehfpFxCU NbJgjetdyvRFMyTWF1yvIe UDNyNJywRDUlWSuuBb3osJ EusWfjWzXyVXSod5ktkjIN UMzkAvOjV488NVVaOAyef0 opx1WxAPVikDUzv7O1NGTM qagdwOa7f8qlJcReJuM3wR MtRZvgM9gdmyNloNRtY4Wr pSFffJh7vMgvJ49zm1F7Kc whA7jlVJGfIXPlG1PoIB6j YZLvLfu0HYH4IDX7UXVzVS RbK9UeIM4mTSQdlVDpHUl2 v4lprXurLQGvBSS5q6buLT bzziG3DN1auy8usLv9d3lj czEgRGVmYXVsdCBQYXJhZ3 QycGzdYf0rdPb3qFptHhwr VIV7Syl7DG5mke69kyh2gW pxNOOjggbpLhP2HKidRQRj gyusPOi2ZQqlVNKwjYM3VB PwoJCqE4RaSYSeLC8ttuc2 CMU5XDmsKEXrLlI3SVKmmW EuCETfzHmjQKbcx950PHK5 MgXqSS7cI5Wqn9D2cH4gmX UlRQVpeDMcFePbTIXcmc3q gTYwPVqxs8LaQTU6cqO2xB NvxIKoDNFgPH90Xnwtz5Il QrvlUVL7TYEyshWal7Qhw1 txUaNukkCnX3kuH2RqRIBh PQQeQZZtIcPhlnKam6Wah0 RpuNJyvRb6h6qxNXHfJIHe zNoje4lcBEH5QCHoJ2L6mL Uqh6zqHDxhIBYxqNV8ohK7 QOLorVHaI9HmwZ6lVXJrFJ 9dhjn3r3gfRKG0GLawTZXh HnX7wuG3IVBlxFJsXMAruJ doWVawl707WMF4ZnFgVTTj w8LmQ8ZqqYypG92ldRamP5 1bWMPzeEzasA8ifMemmV5g ZjBcZnMyNFxxbFxwbGFpbl xmMVxmczIwXGxhbmcxMDMz FImtB3uoRgRlVQNceCslTX wxa8OlLPAtVZNvRbzuyqOv XHBhciBJIGhhdmUgcGVyc2 9uYWxseSByZXZpZXdlZCBh pYoac4WpY7tbWE9uA2BfnD FeijOgyxTtCFeyGCMmt0q6 rZSavOyfl6EwiMPuVM74sj PyCNHwCFY7MOSiz1maAU14 ffcaCwKkaT33vnPhlyQuZP Gjp9ljO7uboPIqf3Qtc6Np ftDqKBtdy3PaSS0hgWYgqn voiWQ1SOFbgPGjafHynxE5 aYqtXPLfjM4wcV7bzMtuvK 2yQeIoZcKiWCrpEY4zNENj D4sssBOsQDDlYZFoW5chPu WvcW9giPpiEswogpF2MSXi cn19 Clinical Information (test code = [id number]) Shivani Schuler is a 47 year old female with IDA1. Gastric polyp x 6 r/o adenoma2.Duodenal Bx, r/o Celiac disease 3. Gastric Bx r/o HPylori Gross Description (test code = [id number]) n9bllMTnHRPomVDYCVB0GK RvYO0tjLymlFw5wPfkRGYb gsO2rPVvESxsh9vtPFD3q4 lxtzZGNyenFYZbQZ9vYMae IQKlWT7hLpYrCEPoItRdAZ BhcGVydzEyMjQwXHBhcGVy zSL2KPTxWN5qpouwDIivGR ujAKAjceY6WOQtqMNpC8Nw SIQzVU4nufeoYWK4RTUBJt kxIt8bgSEzbHvcJrWpOnJy YXJzZXQwXGZuaWwgQXJpYW c2fZ2PQkyxEDX4YZVUBnjj UwppjZjeb5LfkGAiMHEsPW xcaWQgNTEwMDAgXFxkYiBP SeWrWbI6Spf1YLW9RdD7IH b7VRRQDXGgFmceHZP4XjA6 YDq0GLQjYE4iDChmwQLrZI ehGykhYLhsK670CXkqKELu E6EvO0TqFPhcRqKuUJikYE ErUOUjQOvhTGKxE7BKWJYz OEG7WyPuZSSxORa6VEyuT1 IBVURnDJHsEhE8GBSwUtX4 CSa3MVAMKn9eRAjnPrAiCO n8QDF1BEy8WnDxSNEcWhMx WBQhNSAgIIxvzUQlEJ6jtN rkMWUfIC9BSWVtCJvcAAIs KsDcZ7VGC5oPJY2gYTwibW JjaFxmczIyXHBhciANClxw SDXlHQ9WJESjPBqxSAp9wv CkHDQpRvGwSVJnP71le8QE m0IjUS7YTZh2saElmbunzW 5gOSOdkvEyEHnEqLQbhF7c vpABHAybAOKeL1YuunPdRJ ylMKQiip5vgJcdEZncZiKl bGVkIHdpdGggdGhlIHBhdG yxyhTcU2E5bzQdUJ9lEKPJ XXDrsO2vDVGcMHDct8CmjW YhmRyzW1BdvHRgTqPqp1d2 yID7AUUqozLhQYSbfWZyCU Zgrs3wFGkwXzMrS7Q8LJDv HRWjg34vbJN4feQyIbYkiT y1bYPnJAI0ST9paTgjvpYo u3o0wT5jYZWtr9Y9ARTez5 J9ZIVprzJxaMAgkZOvNPIl UG0tvaHgWC58NTQcLVowKR kdVAB0GNF7LCJktFHsi6xf uuiqDd0nSWaaTN9jGOzwLL 08MKHtAYhfFJDeS6PeW5J4 VMvkLSRvOGWfrLFggB8hmy YsrwVxgDp1NPRoSBB1dAHr dMjlTGMsOxxbgTR2EKCnPe VbylYqt5SprRq9nRPmNUwb TZJimY6dzA2uPZQcSCIjbn QXJnrjTGSgJWrda2ZvHGsx cGljWHNhMzAgDQpcZXBpY0 1uv3AFm9Kpl9cgeLxif3Ds iEQqEB2oqUKdWH0Mn6siVR CtlWUmYUG5ZGbxl3jdMFbk CNI5VSXwStGmAGQtFR2LMb EoESguUXl5BHtwVNj4QTc3 SX3BHoOwMVTdMdn1TsP1Mj LhEHj4OIagQN5XOYT9LLPn ULGqLQduHWQ9GMBkQNw5MG IgXFxzcyAzIFxcZmwgXFxu T49ikLNwKHivXjFbGOzuhL dpPWMsOYU3PC6ZTXAvDaVx Q5XSM5jDFM0wDbsrlzFbQK MbheTINigpPICdFD3LRMLk GVxmJXd0arFnJXWzCsXaSW LeR49ek9YWp5YwOB4KKTt4 bjGlmwlfmV6tKLLpfcAhb9 IzMFxlcGljWHNiMzAgDQpT zELljU0kxzYHVJtyGLImG1 WvjdDzFYqjDTMehe4wxCdn IGxhYmVsbGVkIHdpdGggdG saAIItkIdnijXnP8Y7vlId OF5mUJGKSXQtiK7tRDDqYD CaVKYxLRDbnO6jKBP9i5Dt ykGiNIMQARAibFgwKK86mL BjZWxpYWMgZGlzZWFzZSBh klFfsuMkd56ubfPuc7TxML 9gcFvaFQoLPHglBiAeXD6v UOCargMaw3OkWH8lTABhxJ BcVZFlnedyeXFtDJc1qOCn TQYyFfMjlCeml2MbOYPwVB tjKK86brNbHC0kRPdwEZ3g KMxzVQ9pAFMvLDArTRLqPd PkuMLsNdPgaURoOzTtK82n KzQLcWJzn0GzO9maGV1wwR WzVwyqbQIqWDKmhYqkc2Iq lQCbKWLqr5EoqYPzJAndTR 7bSBA1Kq5yaAIrYKYietI9 d1MsPVyoJDNlJajqOPKdDW qup8XmIGBiwOLPv0DxNH6C XHBhciANClxzYTMwXGVwaW XXx5YvJATTVoveaApgZjEj jUMbUwU9BOKxiPAvVFW3AB 4gyAoaWQFdUYh7RWnkITBg R9GxY0CuLDgnCvLnYLfoHW WxNOKbTEdqUVTqY6IJYEIi DHA3BwTvEUYpBYs3HYjrZ4 GZGNXwORFlPrA9HZJ6OtD1 AUk5JPUNVs5zSRlrDgPqQE PpOnB9NXk5ZnWlUGGxAvOv WDRnMNFuIEtzxTVnYE3bpS hfEZRzOFTpPLU0KEVzuAOY n7JwAWTrPCvaRtJiVRHWSQ UWAQ9OMoHJFUEoPnWteYWx JI1GELEkbqKqGAafqDpqxI 9vhXNsH4kgEdGkDlzivFpl TmVzdERvYzEgDQpcbHRycG FyXGxpbjBccmluMFxzYjMw GTRfgCKQp4FuQDERVxCfAT NpbWVuIEMgaXMgcmVjZWl2 NUNiaA9bHb2hlHTtuV5nkY VwGNwjFKBfc0h3gZY0lNTg kPB7tAAsgMzlWuMjRF3juE NuKBUKCG56qRCqapMsNNGi lW0nOLJrGMYtMZF8luvqDU WASFV6hLEzq3Z4GCspGQQ4 gN2msHzvRnLqK6P8MEJwXZ Nir49xkWO8ztLcZbUuHIKq wp9ouF7sAIktslPtyIcxcw Itn0Q9VEShh7H7VZItrgUn zFMecCCkEVWhHnI2KLNjQd W2DCGrOHJyfRKcFDQtPX6n VGhlIHNwZWNpbWVuIGlzIG MajFXeleGoFTPdky46I2pp MIYnaQ0si7wwMrYrIPTzHE SvmQCudPG7BDJtmK9vlU83 kkAtppBOYE0ttFZdYL8UKS NiMFxlcGljWHNiMCANClxw BHMrDFvvk4OvZOnapHfrMJ TtIhLoCFyUyXtuFHAPL8iw hFRhAYzxRBDQHGdWQ0ZBPZ 5OKTHdrXOJYLD9EU5gOWqe KPQlZ9DuL9TfuzT2w0kagW zyn8PlwRYyJG2meCIdGI4S XHBhcmQgDQp9 Disclaimer (test code = [id number]) c2ulcTIvXVLgo8vjKGEenX FuZzEwMzNcZnRuYmpcdWMx HNnbvgXfRWcyo3WkD0DpLe AwMFxhbnNpXGRlZmxhbmcx QKXiNRF2vcFdAOYeGTubJS OyBHspGm5kaMNizWboZiPh MPBfy8zbxsBOPGrnIzDtX3 52TOGuKFsnk3ewk7UzYAJz lUAyr6T1GQRLrfnvmJm6oM vnO23ma0D9LqvfA5mlGZDu ONDcW9UiTM6cHBSkSas4HH B8AOH9PNDiDOBkO1KxEY5v DWGplWXcKVu3q6ipwIbbCZ LgGNJ3d4bzRZpembJfCG9x xj7kzQm9u6vnkwDxXTDtUD LriEQYOPHpV5DtrGnkTc1v xMv1vNqrGgxuHLA6Kct9BV 9xfz58gja2lSztAWUcuewv WqI2RFyfPRQaeikwMOp4SJ hdDKHwfVO9SZUrcDWbZ6Xw WJHyLG2dkvj7TAQ6PFyjTD DzTrF4JVAbjUIdSAVvhVzn DStbc522LCB0PdHjWA7cY5 Vjg5E0uG4unUXiEDAbdGBq TvGsJDGhaj1opVSmBYmzm8 TxFWM1qsF1rSJcjXDqWOTl WG91Glggn6JoYhrwb2QrD9 7akJM0OXsko2sxBT0hNsF8 zaAeRTkcw5iycF7fSwR0ON tpJD9nIT4wETPnuW7plgyh XHBnYnJkcmhlYWRccGdicm WxSk7zkXqwSUF6SHxmI2wv aV3hLcK8LAmtG5eroY2cAK e4ODlknPN3GPAhyZ9pZG9e eodgr1lfHTiaZYpsZHKxzb V2kuU4IJQqsLKhK7EsaV9d KUUgKF3cvhrcx0hgPPK4ON fhCXTtRSE5BnKgOPMpo8Ag not0YrCtq7EqwXWkPEsfZ1 6ry054GIHuudVzH0lbyQWa jnphmTWnbxlxCVjdinA1QB TfdvTkg8FrPBJkZKC8GAfd GWrztBShUHIloIqtw5mvX7 RscGFyXHBsYWluXGYxXGZz MjBcbGFuZzEwMzNcaGljaF qxJFutOrVuBCZuACvhY9or EqIoL2SoGPCqHiBtkXAxI3 ggVGhpcyByZXBvcnQgbWF5 CDbkZ7v8AGErqfLanDz2ya FcAtDrFNAjEIO1CHqqlEDv QBIwx4RjxqbfuUPfUu1zfR DvFROoyU7gGIGiZPUuGBlb QZ5zuKp9JJWIqWWrjOKsIz RWILDoHH70vxVkREJIneyi n1H1KRjfMCXcy5TxjERfD8 zld9VvVBTdq31sSX8he3T5 c0jeRNN0CE7lt5BtLXQgnI XtkPCtDBLop6Mosbbaf8Gs PAQyeyYfo4IrJQDczoTbyP AbWFRvhzQohm7aunVkHPJl YCAlD2VkgzasiXejyaMzDU Cmzi5hzgKhTRR6PCQZITXb RYFcg1VnlK3ahTBJVZX6kT Dyqn9akvPVyVPqIXYemw69 LPTdUB4zN9ztLGMvXKSccc GclKRdn8MpGWZxgVX6lYCx RT2VUsLTu23mSVAgUHDYdh TbVVGidElgcDQ9suW0bY4j IChGREEpLlx+IFRoZSBGRE UyMS3qbyJrk6NuwtUeaRmx PLFmxKNdo8KszOJtr0CwyV gjt6OkeAHzlBIrOX7pBWYn clxwYXIgVVRNQiBMYWJvcm H8k5GgNUXdADAbQZE3gTsb hxm0ATAoeO1hONYrE7kwuo tbCGmfOEMip0YgoD8orZWH uMXgx1ZucKTbmGBPrXOfNB 5xikEfSPaAHJjVIEV1nrLl BFJiw2MrTZdbM1bkW97ygD rsoVc1nVP8OWY9hV2vHja+ IFxwYXJccGFyIEFwcHJvcH AjXZDhlIdupyUeC4MkhzHm vB7czYOasqDuRS5aDU0aF3 S0fILuGRWgtjCzd8nvWOyr dmUgYmVlbiByZXZpZXdlZC Ohq6LoAGklXJP5DUtnxtOc bmNsdWRpbmcgSCZFLCBTcG JmkQJyRYO1JWfcpzZcitYx RV8fkW2nfRygoQ0njFHtrV O9meqxMBYeEBMiwXvxHJTs IY0vsFosqR1mOfXkOeSnYZ idPJ1aGCQeX8eiuQCwPNCa ZDHxO5qzAfGrcP7gbHghKC xjZjJcZnMyMFxwYXJccGFy XHBsYWluXGYxXGZzMjBcbG FuZzEwMzNcaGljaFxmMVxk YaOjRTVpNQzbP4hwNdHfL4 KeMAAdYnMtrWFvN0oxFVop EKO8TIPeHF3zpMKaYM26qZ Azl1wtDGuczHzqey8wI38p uXMcXJdtkNinLMJxp29vt7 NmBVSwhbWgbd7kODJmyzS4 xL9qTMZlmFgyRODrfLJbGM Sax9LvOCigoFZuhtAdDBpo ATLePDXkeFFkfyE3euEbua SjudDkVPOriUcvHFRri9Oo NAXkVKyap1Yyff5mvOFpHO DgdzARvZugyQRozF6jE4Fo FWRxQXBaas3wKLHzoS3oIY qpn8JxiqzjJKGxRWDmNNJx zxFkwq7lBPPnoZTEBD0BVB gxxYSui7NcstVnB3ePLJP8 NUQwNjYwMjgxKSBleGNlcH VmECOenu35DIPnxU7qwPdk ZPVeuS8iiA3qnLfqkQ7pHj KzPpZlKAzcHH0gTVKuZ3kl bBEhXQXlDFRiU9pjFhZdsZ 9jaFxmMVxjZjJcZnMyMFxw YXJ9fQ== Embedded Images (test code = [id number]) [facility] [id number] 19:23:05* Test Item Value Reference Range Interpretation Comme nts Case Report (test code = [id number]) Surgical Pathology ?Case: [id number] ? Authorizing Provider: ?Dominic Keita MD ? [...] HPylori ? Final Diagnosis (test code = [id number]) [id number] FuZzEwMzNcZnRuYmpcdWMx CLieoxTfAOngcVbnDCO0QR CsCH0pvGpdxJw4rYamBTQo riJ0uJAwKKolb5vnVMA6w8 dbvzdzMBFyVGmfZo5iqYCr vVdiFnKoEOZiXBx1mA08MM VjkO6buSWqWNq4FADtcBAe wwYkJaSkKYKqpQPdvEC9EP XdCA6xjtruCArnJIcoBPRf rpV3ZCCmlGUcR6IqDMBnKL 7zfqvpKTC4LZhxLHScRYA8 YuNrKIRxs9Oxgxw1VnJdaT FyZFxwbGFpblxmczIwXHBh ehASWnEVER1FZHVUYJQCX0 vXQIJCOS5YSJFVRbfqvAKr GZJtGFSbUHXPIK4KMZCoR4 yRWvLcUU1VDDXwHYTzxWTm BVZomsZAXgFCVL7OWW8URJ wgQklPUFNZOlxwYXIgICAg JZOxARsIZ6UTOIAnKMWXD8 YIJAwXVSebBd7hKBSSPU2D H5nLN2XAMOABTG9BDNzeCS TxPVXrFUTkXV3UPWchYCDF NG6HBNXCAPMGYDsMFAJYFN GTVQsZYGSLQ3TBBIjUGWSu zmukWGImLx8oW7IQREDZPL wgQklPUFNZOlxwYXIgICAg JMCvAOBMA6YQIsUESA0PS9 9KYQHOAWTRNN8EITWKEUdS OU9WTQNOCQPPEWFTB5OtgK FyICAgICAgLSBOTyBFVklE ZP8HSZCVEiRGAWeDRNPgDX lTRUFTRVxwYXIgICAgICAt FG4LCCulONVLLD2BLKECAi dBTklTTVMgSURFTlRJRklF HLZNQNKGYA9TKa1MFMYCGi xwYXJccGFyfXtccnRmMVxz h3QdC2OaZrOrWTiswuGyUD UuPljlcejzSYBoKQQ6yiNf MDXvFOlyUCAyPShfEa8fyS KqyKmyLsAlICOjl8igeiWF YPrmZaYxV507ESCeGSxmd7 cuc1QyAHPkiPQns2T2DTFY whhlmBg6d1pjQcQxChH2kA WzZDmmH4xelgXgiPRhW5Il nIHnwPd0kPpoB65go7G2Ul nkL5rtAGFkUWKxX8NrEA3q PEQyOyk9NBK8MDP1ELGoST TsG2MfMJ3lKIGlnROnTMl5 m5odtPsnICYzOTE0e7akEY mnhaL0DO3agn1woNn8s6qj czEgRGVmYXVsdCBQYXJhZ3 DtyUwnKa4ixTe0kLjvQicv ISB2Oyo8MR0jix40fdj8cE geAKUceppaWlR9DRwsDMUi coiwMGa9SOlvIEWxuSX7QR UasADyY2JsZSOgGJ9ydwa9 YZX5GIreRGLgApH2BOIerB FyYSEiwDytBYtra516RJM1 CdTtPT4uY8Drg3W5iO7wtU RrYFIbgQHnFiFeWEKzjx0j iCSnMAcnd8WeKRN1zsW4lC LoiVCbJNPmHW90Pwyhm0Eu TvnmMQN3ZPXzncNfw6Cbj8 peIkOealVdY5reQ9WyRTTe MUBjUMRvSrUderOzz2Gym5 PocTPqxQy5n7rhRHKeRIYd hWwgf8wsUVD3GXTlV5P0nW Vrf1bbTJmbSRRwdWJ1anV7 IWCcoGAsR3TlrI3pYQOuRX 1lcww9b9bdPXZ7HBsgZUWf LhS1qsC3EHYuoYKcESCnyD ztSZzgj960QRX9XrBiDMQo a6MkC3BhaDxtC66vfZcqG4 0fHVYcaHaxjD1alJnyyY0k ZjBcZnMyNFxxbFxwbGFpbl xmMVxmczIwXGxhbmcxMDMz KRwfJ9snWuLxOONbmKioXV tsq8PsTJRoKDSpZhbafgSl XHBhciBJIGhhdmUgcGVyc2 9uYWxseSByZXZpZXdlZCBh jCxxp3XxC5kgIL9aE4MncL VmqkNnrnJpLLldVCUom4z4 gBBpjMbua9MpqMRzGB36kk AaIPKvIZR5QIBqx0niRK29 wqvpXgCssU31wcTwyoHhZP Sno3meG5expGEqw7Cim8Hs lyMbGWpwe0JyTJ1jeQFnhz arhJY5FGBbzEWfmvLyvrT1 mUzsDYXsuI2rdU5enNthbB 9gDbAlYcRqFKddZL3tNYYy V9lhnDSbYAXlAZCbU6onEb FmzA8gnNiwOrmkugY7JOKk cn19 Clinical Information (test code = [id number]) Shivani Schuler is a 47 year old female with IDA1. Gastric polyp x 6 r/o adenoma2.Duodenal Bx, r/o Celiac disease 3. Gastric Bx r/o HPylori Gross Description (test code = [id number]) d0liuITgBODawGSRFAB9JB RsWO9wrQzquKc3fWlxGNMc rhQ3wYRbWVlwa9orHRO5u8 rdvkQBTqocEUXfLA6vIPkl OFJjUM7tUtKeVODkRaTwAF BhcGVydzEyMjQwXHBhcGVy sME5MFIyAW1ikoqoUBzaEP slQUGkkdS4JYEmyQIzA8Gc NMRqNQ1dpcyeJQI1NUHZYj rnTo8rsFNyhPoySwMuQrZv YXJzZXQwXGZuaWwgQXJpYW j8zZ9DWhmlKOT5LVONHyyz PbnjdEqsh7MbgFNfPFRxQP xcaWQgNTEwMDAgXFxkYiBP FvYvYyC2Aws4HGT6ArD7GF q0SRSQWWNoVdmyXJD1JeV7 DLw1VWCsRF6yOBszeBTxIG ntOboeAGxcJ218IAnzUXYs N9NpS0DsPFbuIpEsDXddIT ZhVPDsBVwlHRIuC9BXJTRv IUT6VlGoBVMxYFs7QRztI7 ARUBJnBIEzMpO0GSTyHoX8 GDi5JQCLZt4dBJorIiNpOU l4EDW4LOl4GdIyTMMaYnPw ODZzSAZcBCkziTKdYV6ziM wdKLQvGO2VDZBsIVyxJDNf FjQiZ5KWK1rHWL3lJFploW JjaFxmczIyXHBhciANClxw JKTzEH5UVHDsHEgpXEl3iv OwQYKoVcQyOPTyF77qe1RV m7GdDI7GYZw5zaUnptrlrO 2gKPMgtdDrJNdObOCbcR0g vyNBRWlvHLFbW8IguuWwPH lyDYLxww8aaVzbFVmvNxKo bGVkIHdpdGggdGhlIHBhdG spqzBeQ4K2ggNuZB7vPJMT YSZijH3tZBCzTKGqb5JspX ZhsCapX3KimWPxSnApa6j3 oUU5OEYmwcAlEEXevWWjCV Nbbh1lKOwsLeXjT4A8ZXSv BETxk52kgKK9byGnDxHmlB a1xWPgJHX7DS1wnGxusnQz r6h7qE3iHFKjv0N1DQVuq0 K4DSOkzfNiaAHeqNUjYCRv XR2nopIkQI40KBOySIqjMW uhUYQ8GJF2SRPrqNAqe2km klpnUk3bSXeuIZ8qIMmfAT 56TMCaEQfzCTPhI6NvB6B0 GUkuGZIoTMWaeLOupU3cnl WghhMukHp7FFLdPLY4jMSm nKzkXDBjBnofuSN8UEKnSa YxhcGmf8VggWu0lHMfCKon SUOqzX9wfU5yFMDkLUDyqg VZOdarIMFkQTuxu6FrRGnl cGljWHNhMzAgDQpcZXBpY0 6vr3FYx7Jhs3lfnAvdb3Fi jJInWB8uwDMiKQ3Bc2quRC MihRKxEAO7BSnyh6syJMjk SBG7ECKjXdLdHFBkWN3GWx TjZJeyHDb6SHedIVv5SLj0 BX3DNmUrESMkMbu3JqL2Tv CzVDw8BWjjDG9DTJA8EBKu ZGBxTOcuLNR7VIEpUVm8NI IgXFxzcyAzIFxcZmwgXFxu I24ftEOjIJngRrStFPyniA rxEXLtUTF7YE0UDIBrFyXg Z2LLK6uXBN3sBmamskEfTQ KctyGLBivaHOZoWK7IOMUm ZJtqFUs2krKhLLOaVnBvXI ZmL01kp6IJn1KwUS3IXFe0 wgZekbjbqM3pJNIfztKaw6 IzMFxlcGljWHNiMzAgDQpT dTWqzE3stjSQESxzKIEnZ4 NpdxZyIPtvAEAiow5iiEce IGxhYmVsbGVkIHdpdGggdG hkLBEczUjhhwTjI1T1vrFt JP2fWABDUHAcmI6iXGEtCH ErVAUnNKPyfG3eOEV4k2Rr ozLbYZFMSIQysRbrJE10kT BjZWxpYWMgZGlzZWFzZSBh juTgxyIpf31qbvAwp5LpCF 4lbJcoISbAMDvkZbEbLP0f RAZaluOax4KnFL8gKQUmsR ZzGLMkhckksEAqDBt4uPSk GIWcNgIjcRwrr0HwMFTpGT liXN64nxIwPC4aRFinHF2h PNdbYS1cLDGzRDEsBMFuMf KljRQcQhPyhDWiClHdW11o WmQYdTDvi9MzK3xkUS7elS XnLxtwaQVcTRAbyTers1Yf kHBjQHOaa5NmwVOtGFydDI 3lWAX4Qx7ejXKuVTIllnY6 q4MoBMymYTJtQngeWGVrUE fxq4PpBAPtaWJXo0NfFR4A XHBhciANClxzYTMwXGVwaW VFy6TvIPPHBkhvtStmNaQr iGVqMnD4RWSmkUOiIGU2JG 7yaUdoHFFnASx8AWsnRVKz E7NeR2GcXLodLlVwFEwjHO AzCWMqULijCQPgK9DMYYWm UNV0DuEiLANjIOl3WPbrM0 RRAGEyHRXcViO5PMU9SbU6 RTt5XLPEOa0aTYshKrHcVR RuBhD0KIh5McQrCYRjZjXh YGAoYVSeQEaucTVoXC2vvY eqWPZnLMPmAKS6VHAdsHRD n2BkDBKvIQskZdJpQVGGSA AZHM3PPxDGJTYhSmYtpBYw GA8CMUCnecEuQRfmjDpbkX 0zvLSxA4viYpFlWlnarQrk TmVzdERvYzEgDQpcbHRycG FyXGxpbjBccmluMFxzYjMw NRUbjXTAr4TuKFWZAiQsTG NpbWVuIEMgaXMgcmVjZWl2 HFQqeC2nXh2shXXcdE5lfA ZeIBdhGHDai1z5wKX7lIHn rIJ3vNUvpIrrAyArNL0zsY MbSSKOHJ27jHDgsvHjHNOx yS0wETNaIBRjHIY1vrscFR MGWZB1mMMrf7Y8SOwiCLD7 mO3ygDdcZnXsM8E8XUXlZX Mgy20wcSA3vzChHmAbTPYr yt4pcP7oPHgpjcSelGwuun Aci0C1CTItf8T2ECRsvoJh dKOdwZSgKJIgWaR8MKIlLb P4ROKrDBTnnXOvXFTnMU6q VGhlIHNwZWNpbWVuIGlzIG EehSJjtyJgYBEpif96G3xz LWPinC2fg0xtNtWyHCDkMY IiuMTkcNT5ZYFbhI9qrX67 avLjmdDSET2hmSNlIN9CTD NiMFxlcGljWHNiMCANClxw QOSkUKgpo6UdZAgkvOqrHT StAmWpBNfBdHbmJSOOT6ka hPBiANhbWQGWCRmGD9EOHH 2GQBOwhYIUDZW5DB5kZJkd WHUsF4EmD3UvdhB2j5qbkX zla2PtdGWtNE2vkYCcRM7I XHBhcmQgDQp9 Disclaimer (test code = [id number]) p2lsxHJkUSQjo1nxZJUeaY FuZzEwMzNcZnRuYmpcdWMx BHekxmBtSJybg5EoE3OpXd AwMFxhbnNpXGRlZmxhbmcx SWIaANP9hsNrXUEtJJcvGR MwRQmcYv1ocKWryLsrOgJe URApl7sippFXQOcvSfAoU0 98NOIdGJquw3fjh1PxAUEc bWUzs7V6KYRGqcinkBr1nF wuC42qj7W0CwjxM4oeUXVv UOTkE1FmNX3bQRRvWxy9EL C9PGH0CAViWUUqR3BxJF1n MRKluBOqESv6v6zikHlhRJ UcWDC6w4pkMSfdhkKuIR5p ov1baCc2v2yaqqQqBDPgFV SkvUYQRIJjF0JlgLakFy6u aIq5nSzyQaqhEAC9Irk7YI 7gva21vsk9wXfePOOyedzz FhW8ZEndFQSxthrgZNs8IU yfZSVwzAY9LSRajXPiZ9Ud NLLoEG5mwgz6QRL4QZioRC ThIrO3EYJlwPVdPFYuaBwm ICpwd177VFL9IcZaUE0kK0 Ivg2X2fZ6jvUBpYZJzwWWi JiHzFAKpae9vqOLdBTipl2 EuFAF8bjD3iJDkqLMcBPNt IZ49Gcaen8KrIsogs9CmB5 8yoTH8FLcxw1mrFE9sPpR2 saDoJFhfa9cjcI0hKdR4XG ebAH4zLE5gIMKkqS8numfx XHBnYnJkcmhlYWRccGdicm FtOm3yrRrdHPG2CByhU3dl kX9nLnG9SInzO4kjdN1nVF p1DUwzhMQ0EBIcmC7tLO9m lrevf8upFPerMWyqPNPvjb T1ovV7DFXtgENbB1UjqJ5v LCVhJK4wieefn5nsVPL2MF dzMOKkOUL1XgIbUSNix2Em civ2BbVvq5YjeZMtMZbqQ0 9ef737VSEvflQsE0udrEYa ikiapNWgqxpoSKmehkC8ZR SkmgDwk1TnSFYjGBH6JVcs EBiypCZaMTQrkFiyh4apP0 RscGFyXHBsYWluXGYxXGZz MjBcbGFuZzEwMzNcaGljaF emYScrQgPeFCDeVNwcA8eg VkUoO6HyFCObRtCakLIeQ9 ggVGhpcyByZXBvcnQgbWF5 OLorK5a9BPHizlLwiXq9ya IrUcZbAMAyUHU2OJfgqBZy WTZoo6TvgkiyoZCyQs0mcB GvBJDxmW4gTDTpHULdXKnn WL9zmQc5AHMTxBVyoOThUd MCZJOgSY49edWyIPPSimyb m5I4TVxrPNZlr4FedMUnS1 kbr0EcCBIpg90yDI3al0W6 u0yaDFT5JG6fu6RnRDGvfW JbvDSrMHVyz9Zriqypa1Tc QXFbgwOmh3DeCZDokgFssL FsMWTdglUifq1phjZcVYXe QYSuW1RlqrbddSgjapReDG Mmls0aeqHtCTQ6PEIYVFDw PWBmv0ZtcY1agCZERHB1jY Pevr9hhaUKgSRkWNUfje28 GHQrIU1qN8muEMTuZRIrsh OhcBHsl4XdXUOibWE0iSWb GX7INeGJk29qTXJnJRHQyt YpHYFccIvtoDI8geS3vK8y IChGREEpLlx+IFRoZSBGRE MtNB8zxxCoh8EktgNiuKal HGNduJWrm8HijSPcr1JamY vha7QauOFyxCRwDH1kIBVc clxwYXIgVVRNQiBMYWJvcm C0h6YbFRQqCBGpMRR0cUrx klc0UFBdxG3oKYKpH8slph waDLdrPBYvz4KzqF9atKLK oEFyr5NznPQegZOZwOTsWK 4usdFuFQqYFHeEYHJ7lrHv SRBci4NeKGgeC4tfG49ceS qewNw0wEA4FBZ3cU3wLwa+ IFxwYXJccGFyIEFwcHJvcH PqOEIabLnoraUcD8KymvTa eO4oaLPrhjCsZF6kEX6fF1 R2rDZkEKDvneBkw1eqEEbd dmUgYmVlbiByZXZpZXdlZC Ifo4FyWNxaRSV7WDjlbkDj bmNsdWRpbmcgSCZFLCBTcG TwqCXzFKD4EVageiYkbwOa NT7gpM5yvBilnX1mwPUobM F5zlapEUQuSSHqhFkuBTVs KD4suSybhE3nYtDuNsSiPJ vfUK0aIPGwW1jkoIZkAOAq LMHbH4eiGlHqpL7kcRplQI xjZjJcZnMyMFxwYXJccGFy XHBsYWluXGYxXGZzMjBcbG FuZzEwMzNcaGljaFxmMVxk OwFpQKZlUDojD4tmLpVbL1 NcKRIjZaAzoMYrK1kaPLqk YPK0ZDGsJV4ioFCjCE14aI Oac4ldTAaazKvuqw7tN52y qRQpZXbawRutUTCew67rw4 VeBXMnyvBzsb8vLBQgcxW9 cT3oMHHhzObyYQOgoBAtTX Pdb9JgFQmfxFYvnzWdOChj HVKkJPJvvSNrsgN8gbLnoo BphaVlWHFkcOmpBHKhi7Vu AQMrEGtkt9Naqo0oqUJxWT BgnrJOkMjcfHHlwB7cN5Dk CEZpLKLuiv6jACLxbM3yBV xve6AytibeZESjJOLaBLCt epCekx7kGICohWWUDH7YIB slgYVbu8FzjfReD0fSPFC9 NUQwNjYwMjgxKSBleGNlcH IwQLFqti71TNVirE6lcYql CJIhuV6roE6afTzmxN3gWc AfIbUkLLhnNC7hJLHwY3au lWKbJHZtRPIfW2yyMbJdzO 9jaFxmMVxjZjJcZnMyMFxw YXJ9fQ== Embedded Images (test code = [id number]) [facility] [id number] 19:23:05* Test Item Value Reference Range Interpretation Comme nts Case Report (test code = [id number]) Surgical Pathology ?Case: [id number] ? Authorizing Provider: ?Dominic Keita MD ? [...] HPylori ? Final Diagnosis (test code = [id number]) h0lrkOPtBCHkv5lsUHNadT FuZzEwMzNcZnRuYmpcdWMx ENomorSzKXbdeCswVAZ0ZI CePK3wkZflyYc9zAcrRAWh umT1mOMqBQrzq2kyOQY0n6 hhddkcJWXvFYofJy4rbWPk lEgpQhLhACFhHRu1yZ06OK RzsD7yuZHoCBq4VZJobOYq suMcDjQsIVVfaBKjiLI6KF PzMV8jxiwtINegEKdqHIMu bhP2RMRjeAYjS8KfQSLaKN 1cvbykKPC4FWnbEMIhRQK5 JaSxGWRnv5Msgkp1IqJaiW FyZFxwbGFpblxmczIwXHBh peJPYpMCYD0FWSEWRCHTB4 wSDMVCCB8HHLOIZijhlXNd KFEdAUUaMDTFKD2QPRHpP8 oASzVgSA2DBHQpUYEpdZSj RCOqkuYVZzMUKX3AHE3MFA wgQklPUFNZOlxwYXIgICAg VGMgVNnLV3AAQQQvOWWNH3 FIYOhCQKlxWt4cJFYHZC7O I2eMO7JSUXIIVJ0QJRayGN FcXUQbDUXxQD3HQYwoYCPZ VP4VXPKXCXGVEXdIJJZNHM GWEOdEXMLJD8ZHXRbMIAIn rjufOHTuUc7uG8YVPOXHKN wgQklPUFNZOlxwYXIgICAg JSWvVAMOR1SFGpPLFG1NR5 6NWAGZROYBOL8IHSNTRCpS GK6BAHWZZCSXUSQBP8PzrT FyICAgICAgLSBOTyBFVklE HA2NHHAGKtNBLOiRCIVwBA lTRUFTRVxwYXIgICAgICAt YY6DYXupMGLMCZ7VQTULZj dBTklTTVMgSURFTlRJRklF HDLNWCXZAQ0NJi7KXUEZFo xwYXJccGFyfXtccnRmMVxz e7ViY4KmFpHnDRkmssNeAB FqCkmkymboCFGpPWK6ikGu JVRdFNjfHMZjCYkgUp7dfZ LioQigAzEwYCTbm7lczrUH YYcaQyGkG926XBCwTTxaz9 alf0QzHPMzlVVle4S8PLTN frxelWs9i2cmSjNaCvJ0bC GdSGitX0ijxcVbpEBcA1Pg vLNobWf9nMqbY04sj1Y0Ra ciY7riWFYlORNoX1GgCU9s LJEfMfw8ZFR3XMF1WUGwIH NaM7YwRZ9qKUKosZApNHs2 y3ashNsnYWFdPAM9f6hgSK qxxgA6PL7jtu3npDs6y7vg czEgRGVmYXVsdCBQYXJhZ3 SczLyiDn1srBh6pAzkXomz TDE2Vmh6TB1pih45xox9qQ xzNUIajpwzZjP0RUdeAIWm uymsMXa7FBppSSOztYW6KI JthWXgL1WoTBRnGB6vpig3 SNJ3UFneHGDjVjD7MVHvbU RzAQRjlIrtLPfpv385DDL1 UmEcEE8xM9Yzl6J6dH0lxB FwMWIcjWIpCzVgPJVzuk4l sAUkEWsld2BpJNN5qoI5xK DnqNQcPNEnIB93Pnxgt0Es RfxsMPD0VGFsbvCrz8Eci1 jyLsZnuhBlN1wyZ1JuFLUb JWKxGRPgStPuksYjc6Grp6 HqxEGpqLx3h0adJLXpZFQo oXfec9ajZPJ1JIPxF3V1hW Rci9onJKiaGLJztNL2arN6 GSZoaTSbO3UnmG0jABQcZT 3gfxq5x0hmSSR8DGsrERUl HcR9wyW0PARsuISeWBNmiP igWIkyv900PQU9AcSdPUFh x0PjX6XdyBhpY47akYsqU2 7rQIXoyXwolR8xcAcvbM7u ZjBcZnMyNFxxbFxwbGFpbl xmMVxmczIwXGxhbmcxMDMz VHvtY7cgUlJbTHTshWggIS mnq6IsTBMpXHKmRntouvMd XHBhciBJIGhhdmUgcGVyc2 9uYWxseSByZXZpZXdlZCBh pKcck2ZaQ1jgWS9dF6HqpV AawqPuykVpJJlySADja0q0 gGNgxUkzb1FraQCgMD59ms PpKCEmOAY3MXVtz1bsLO97 pnciRdKktL86bwPojkBqOU Uws7xiV4tzsNNlk7Lek7Ql esEmXEwod7EzBV0arBKwon tvzHM2KNGroMPswqKortX5 uBfwBRZqgR1aiO6uqLbunO 2uPxDjCpOzWTtyKD7eUEQp K7fypZYjWTYpZIPyL5rpSj BwgG7lzOtrSbylrtP8JVWu cn19 Clinical Information (test code = [id number]) Shivani Schuler is a 47 year old female with IDA1. Gastric polyp x 6 r/o adenoma2.Duodenal Bx, r/o Celiac disease 3. Gastric Bx r/o HPylori Gross Description (test code = [id number]) z0cvnMQsELXhvLLRFWZ5ZD RqUM9neOgqzCa4vKdrPGWn skK3lLIxGHrxc7wwOBW8i9 jztzFGCybqCRMzWC8cLIsl LBOnZD8vEhPoYJNaHtMcKR BhcGVydzEyMjQwXHBhcGVy yNH2QBExHA3plifhYWhgKZ uwRINkgxD9TDIalCTjF7Ty CZZsKP0uzoolZUG4BUDQXd ltQo3ygYWhuHzaSfUwSjKt YXJzZXQwXGZuaWwgQXJpYW e5lL8EBsadLMM4EYEBIxaa MpcosOqln0DozRBwQHMyGS xcaWQgNTEwMDAgXFxkYiBP XnVrOwE2Kal7UHH2NwT6US n4WPFAGBVlJedoAYY9UoH0 ZEo8ZGZkML6wJDvhgEYjMG ypIwjuHAsvT463PNgqKYQw V8LxH4FtRMcwIgWpRHrcXB CkDYVrUTpuQQCrZ2YYDOPz QDF3MwShDGWrSHi3QWwuC5 AMFIFaKKLjTdG0VAZpRpB2 ZCh1NMPBFu6fJDvtQbCsAR o3MPN7ITy1HtIaXVFoKwOz NCVjJWMsSWxnlUXrCM8rgI mnQQStJP2SLKQbRVoiYKQu BfRqR2CBU9pJGB9qLKfqnV JjaFxmczIyXHBhciANClxw GJTkMF7ZCJQvTSreUWd0mh SnHGPfIoJrNBOjW46mw8MY d9JaWX3UNSq2rwWgbjcmoN 0xKCEetwTxZPwSnWFjyV4q xwYAUOvsGKYfH6HgalYxFX ftNXNejm3psGuqJGfoVkGu bGVkIHdpdGggdGhlIHBhdG ezmfEgS5S0ywAgNV4wKCAU HHFsmQ9uADMrAZEva5JuoQ HqwXiwW7FcnNTlYlOjv4v4 tQS9RJSrclSrXRPxwDNjPU Nten4sSZdcBdJoO9Q0TSYl CWYwv43xqIR9saJlHdFgxS e8uELcXOA5TL8iuMsqwySw m1r8qT0gUDIcl4I9HYQql1 M8PRDggzAxkATwzMKwBNBx ML2cvlRmGT30BBVhIXusTY xzMXM2XZO7EIPryBZtn3kc yovkSy7sEWhgBG7oUIyuML 32NOMuOEraVROsP3OmR1P4 TUpzGZJyXSTtuGYgeU4bxj ElmaGazZq8CJHmZMI8vYVj xWikQKWyFnsviXX5AIHlLn TdgkXwb6UnyZc4xTEsLAmb WQMxiH8uwG2iQNOjPGAffq SRVaxuPGAoSRtnm1YmVUpl cGljWHNhMzAgDQpcZXBpY0 1fi4ZIz1Pea9tfgVtnf5Eu eLKcZS7jlNOzGG8In8kwOL DziCKlHLB0KXpyr0dmSOzd VFU2AFAqBuFqZOEzQI8FVt OyYJhyGBq5CPrjPRe3IUc0 CR6SCqHrZYUhRkx3XzT0Eg QoDJd6OThzQC1JFQR0BNCj ESVjVSdoPYM4QHPdWOh5MJ IgXFxzcyAzIFxcZmwgXFxu O72lfCUnYTxoKvAxUFwewG ywNVHhABK6MQ0GXGGjCvQr X2YVU7mFUX1eJtruwbSzKH OfzzLDOqduKVFcXZ4FWWCk MSbrBZi3mnTrIVMrNaUjEX ZmY83sp4HXg9RtNI0XMYc4 qjEaoissbA9xTIReadUeo9 IzMFxlcGljWHNiMzAgDQpT uSIahL4ewjZTSUceUVLjK0 OgykZkOAcjCUBbth8hsOgb IGxhYmVsbGVkIHdpdGggdG ypDBDjgBbuagGuM5S1bzRq SQ4hGOZXCTNskO1xXTXrNI PmHRWsEAGovO4tPEM6v6Sw utWaLPLEQEZugOkkLJ59bT BjZWxpYWMgZGlzZWFzZSBh csMoelJyq41tghAom9WqSS 4rmUusQSiYRGpwRzThHZ0y PVOgqkEkn9KmEP5bQIQcoG RyEISqlasinVHeGKa3cDRo OOJqMdRkiRcel0WlLVJpUL yyQV09teSnPL6hBPrvHF6z OXoxYH0dORKoMWUgMDYwKm FsfQKfHtFvdFNwKpXwO79n DlDVoBLnf3OzF2quMI0akG KzPhstnDEjBIBquXpau6Bl eYMdLWPzp3UmdICsBBlmHN 6iWIH1Ir0amAVpFSOyejV8 c7OvDPyfABHjOccpLNKuRB nnt1WxZXLdrDBTn7ClFS4E XHBhciANClxzYTMwXGVwaW XFk8HzSLEBUadhbTcsPmQg lAKgDhJ0QOHwyABfYIF9SN 2czQstSXJzYBp8UQwrLOUj P1XwV1CfGSaoLwYoPNodEC VqEQTmRXauSRVeR5TWSTAf MVJ4WsQsWOFjGBu2CRksA8 EZAMEeQYPuZnE3OOX0CpZ0 UYn3RXRFSh9xPNvjFjJcMN AiQsO6PUq1CyLuTEFgItRx UZVwYSIrTPmhoENjAQ7fkW sfSGVtRZRqZSP5FGJnsZVS d4MwHPImVFjsQvCeNDDLGZ BANZ1AZqTZFQLyLqFycZHj XU5HFXAnysTmLWuihEhgaM 6hrOAwG3daVvSsCpfsqWjx TmVzdERvYzEgDQpcbHRycG FyXGxpbjBccmluMFxzYjMw BLZdzUOFz4IuFBZMNhDaHW NpbWVuIEMgaXMgcmVjZWl2 SSEpuT3aDu0bhEAloZ0uuN LpRRpsRHWau7f9fCJ3aKKv sXM9eVRclLhlWfXvMO3giB QqGCTBKB10ePVcemDnJDAg eR4oPCPwMWRdMJR4ryejIX WFFUK7rDEdx5M9MCwsDDN5 cZ1dyNriJvVyB2K5EZPqHI Pzm35ddZJ0eyFhGhKiCFHg ad3shF3hBHwocjEysYyiva Odp8U5CDUec8S7XFNbazQy cQIgsUWjGBLaCjX3LRDbCz Q9QYSoXBZwpNGcKJDlYX9q VGhlIHNwZWNpbWVuIGlzIG NmhNWociPfECXlva76U9bc JLIsbD7ex5qvOeDaNPCpIB OxzCGmtZF6SQVnqI7nxX35 sjKeqeUXSG6dkDMfWL4TRE NiMFxlcGljWHNiMCANClxw THLiBXzeq5ZxHCexeEplUQ BqWkJtHGjSwIwnWDSMM7zl eTFgJTdhQFGQQXsGF0WUZG 8NHGUveBGIUZV9VJ6iSWmv JUXoZ0ZcJ4SzorD0j2zwdL jby2MllBVhPY0guJKxBE4R XHBhcmQgDQp9 Disclaimer (test code = [id number]) y7lkbAXqUYBck6pwNHRzeV FuZzEwMzNcZnRuYmpcdWMx HCdkinRkFVwtb4DfD7DhAe AwMFxhbnNpXGRlZmxhbmcx PKSoZGF9atIeDVTvYTapGT PlRHhjXl1pcCQnkYlgGfOw DSKle6fnluCJAMieTtAjN0 33CZTgGOkda5yaz4YcTPGe tZVby3N5NUKLmnyreHw9tN xqB08ph6A3QxleX9nrEBWa MZNlQ1MhAE3zVEFiNsr4ZW C7ERN6UCUwAWRkA8PqCG1s JLIthTQhHGq9b3qmeRluIN TsNGQ2s2yjZHkvmlZmZH8d up1rhNc6v9dqsfHzXXQgRW HenMLBGOCfY6BldTkhKw9k aLe9tPtiCwzjQJN6Vge9CX 6omd09gtk9wGtdUYXlvjgs ZoD6FDqrTIHyzlleRTn5OH ylVFXplWK2KOGmaHJmF9Gm HFNrAA7aprn1CLH4TSukKC SaKcO8WRMwlCRiBGJwcPby DHshp294NDQ6AhCiIE3iF9 Yyh2P0aN4adYVjCWSpuURz PtCrZDThaq7mtRUaJYfat8 HtPDC3abK3kYWodLKsICQv VH21Wxbdm0StMwknj0VwU0 9pnDP5FTdjp8acOA2yMlI9 viNpOGxgw1jgzW7eOxE5VB bcNA4wMI7nSKPutW1lnlal XHBnYnJkcmhlYWRccGdicm KoCh2tpNhxCGU7MBvwS3uj zS8iNaA7HJxyU4rgcB5pJI o6GOizvKX4EBOjyE5uBJ8l dikcm0vtWYiiUBoqGNKhva S4mtJ1TVBswYHiK5BclU3a JIVxOY1qochwn6xqEIO5NK luXSFbNVZ3IsDcAQDjc2Vt ysw8CcTdt1EtyLXwUZvvK9 6qq127QBTnpxSdA1bbaYDw rjuwnRExbeuyNJjhpoX7ST HelaUla6MnYZCzFHS5ABhr QJusbSWgUANiuFjjf0dsZ9 RscGFyXHBsYWluXGYxXGZz MjBcbGFuZzEwMzNcaGljaF jrCEuaQfXeETOjLZnmO6au IeIbB4SlZVCkEpAtcCRdF9 ggVGhpcyByZXBvcnQgbWF5 LTktN6h4XRDrakPgqDg8wp JfSxAnRTBeMTZ4MGbyrXLg FADzc5CeglhfqWYaWi3xeM HhHXPncV7sEMOoIGImYAnt TI0suGn6QMRUsJPwdDEpAr QNELCdTW33zoBbWXCJxdur u7N2DJejHQVtk2FtuGOjP3 kjl9IrAHDaj50zQE7os7Z4 b3nePFO1BM3qb9RxVYJzbZ KcrJEoDHUai2Lyhmain2Kz XGBityNpr8OiHTPlxiMokJ WzOWEabmAykq4vwhCqPPJc VCZoQ8QrdqcxhRwyxhCtUA Cxps5ofhIeQYE4GXIAEZLl JHZax5IhuO8dbPHFUCW1kH Ezfa0curWIgMSfBJFulz01 JSXqTR6bM0tqWGRdOTWmiz UhzICyr8PdMJXwiSK8iASr RV7IHcDIk05zKIEgHRNOrg DwXBSlwGpffNM0njU7xD0c IChGREEpLlx+IFRoZSBGRE RqWO9mogDst3YjxvFdbHso VGJbaIBdk5GycTXdy1AhfT gzk8JihWIlfHLyIH2hDKDt clxwYXIgVVRNQiBMYWJvcm R4t8VdHRJaNDXrOJE8yBya cql3XWLhqZ8fGGGqT6yzar imWFllRHPhp3AzgS6bjDUS oYTkl9AyuZSoaLFHaGCjFE 6mqtJeRZtDGSdCCPV4puDn BRHhb9ZwJJucV5ujL08gjT tmaMl2uVO2NQO4iE4yYib+ IFxwYXJccGFyIEFwcHJvcH GyDUGltKeempArI0DogcLq mU2feZHmtrVzQV8cRP3mK7 E4iIAvROFpssGhe0rwNOmg dmUgYmVlbiByZXZpZXdlZC Kmb9IpQEcsPSS0VVrhbgAa bmNsdWRpbmcgSCZFLCBTcG VqqJUlISB3ZHnksaZgutXh VT3vbI7xpFkeeT4nhAEvkD J7ogerQDVcAXGslVjpOOUk GB7ppZmikQ4fNnDmZgPnXP bjEP2yJGGhZ2wmmQOnZSSk EFCmJ4gwDjHrhN9cuWdrIP xjZjJcZnMyMFxwYXJccGFy XHBsYWluXGYxXGZzMjBcbG FuZzEwMzNcaGljaFxmMVxk DwNeDXPeIHuvV8eyDrHrI5 AeMHJuTzLdyPFlG6lkSHwx AWW0KMFlFR6whYXkVH61zI Ivs3xmBFbexZdnfz3fD66u zQLfYCjxtJmfTFJdo28lo9 CdHGNbmgZony9aWHWyvmZ0 mF6gYYEphNxdKQShnPVyHF Vds4PoGUesfIJzduKpWKky DPTvRYIhrFDkwgO4fwQlaq WarjXnRUGkbSgaFKYar6Mo VOVdKSgrv5Kztw6utKMtFP KmnsKOvPmdjWQopP7aF8Fd DZSzWCIilj8sWHUvgR2fML zqg2VoyucwUFMqLJNqDQGl obXtoj2qFXJwyGFXQC0GII cumNDmm1UnljSnS7zWCJZ0 NUQwNjYwMjgxKSBleGNlcH XwBJHmvv05KVRwjJ7hlDjk WAYkgO4kfI6ylYjrkO2lTw PwDfXyVGcvJY8xPWFnW8rl pLQbSQMdNUQsB4trTeEimE 9jaFxmMVxjZjJcZnMyMFxw YXJ9fQ== Embedded Images (test code = [id number]) [facility] [id number] 19:23:05* Test Item Value Reference Range Interpretation Comme nts Case Report (test code = [id number]) Surgical Pathology ?Case: [id number] ? Authorizing Provider: ?Dominic Keita MD ? [...] HPylori ? Final Diagnosis (test code = [id number]) a0ymwTZsZOZkt7loBCBhnM FuZzEwMzNcZnRuYmpcdWMx KEvgtdLmGJegdKsgGGV6IR PjML1bfGmpnQe3fPesGCBz nuE0rCWxIZaff7xxTDL2v3 yfvpxhYKYnKZzdVu1vmREv uRkpVyLmMKTtNGu0bL91ES DanU9qpFNkJWc2LREyqWMx rlPkAmDoFTKglAXduYH8EH HtXU3jsnlaMFsmMMwwQRJq kiR1DXJiuGJeU0JwFAFrXT 9wzjifOBW6CGysOIEjHIU3 VpTcJNYnx1Dzwjp7NzUfkT FyZFxwbGFpblxmczIwXHBh cjNSOsVWKS0EUKDXNPBXS1 jCBZHXZV8DHFODUdqdyXHa QLArKGVmMTZXKM4BCCXzC6 xTNuKzEI5ZHKLxOHKhhYNa YVFszgQROwKNWO9RFA2RZS wgQklPUFNZOlxwYXIgICAg BUEcHFwKF7OEBFExWCCDA9 UWSLcEBByfYp8dKICDLK1W A1kLO1GCPDLWFD0RAMruQX NeDMDsIQJwXN0GEYriHGWS XC9MJBFCPCUWUDuZMPCNQQ ZHGLaENKCKV5ROCGwXYMOo hlhzGTJpFj5uU8HUGYRWZC wgQklPUFNZOlxwYXIgICAg XIQhKAZTB1CTFvELTH9CO5 3WJZEGEAWGBI1ZFWCXWJqD QK1RHQXDUVJVHABGQ0UufD FyICAgICAgLSBOTyBFVklE WE4VEBDBFvQINPfWQNYkRD lTRUFTRVxwYXIgICAgICAt ET4FQZgcEEVPEV4ORZVRXa dBTklTTVMgSURFTlRJRklF ULWWCVFQNO8KVq6JIPYPTh xwYXJccGFyfXtccnRmMVxz j8QoV3JcBuToPOdwgvUlNM RnHjqlawflAEZjZMT4mwNa MVLhDRnaSGKyRZbrXz8imC SpjNotRlDeTDBal8ngcyFB GImeCaEyN972NBAaZIvrq8 wcn7HkPXTqiWWhm8L1PHXO frffiUu5s2htBbZvSmI5bZ FtPKuoI5lkwqEkhPNeO5Qn gZFjpLa3mJvxK74zk6X9Ed dvB6fyJQDkWSYmP0SoKJ1h MCUjGdc2OCZ6XRL1DCXsLA FyM9AzYE4zMEWrfJBsTCa0 i9pvpCjoEKSvIIG9e5nfBD tgkvL3TD6cij3dvSd8m9be czEgRGVmYXVsdCBQYXJhZ3 KwcGfsZe6foKn6tKnbKmxq NRJ5Din2OT7cix38nae2oX jbPBVkcbtqEcR8DEkjGIMn oieyYDj5QQkrFXHrsMT0YL MsxLQhK1VeXCMyMM4ssyd3 JES1NAxoZOFqWyG4KZLzaO SzDXRskWgnWCqdz293KYJ1 QhKnOI9pJ9Yiv2E5oF6avT TuLFCuvNUhYxEzRMDdjk2s yHXsQSsjo3XoYQO3sfE3eR KpuSSnOBWoJX16Nurje5Em WaskTNG9ECJpksGmp9Net7 gpSyZsppJvP5oqK5OvSWHl CFWdIUZuMkKnviBvu8Cec9 KhgPZvnVd1l8qxCSPpBBIc cDhdt5ctMME0UGMyW7Y7dZ Qqr2gdVTcyISPygIS6umT2 JZIklUYxS3HdkC0kELWzGC 6wytk2h1gaLVX6QNmlRLWr XzK9ksT9LPKdnNUfRJQtaF gmAWbox109OSV4WpAeGJNl q8YgD7QgdPmcC38vkAstF2 4tAUPfsWfgdV6piIrhnH6x ZjBcZnMyNFxxbFxwbGFpbl xmMVxmczIwXGxhbmcxMDMz GQvkC7aoQbPsLQRbqFxcQC tty8MlVVXoHZNvBnupcpEg XHBhciBJIGhhdmUgcGVyc2 9uYWxseSByZXZpZXdlZCBh vGeox0KvQ8zfIS9iG2QgoR RoxbUrflUwJAmsMQPtz2b8 nBNovBrvg7VouVEaFW56yl ArYXVyQNJ9LYSal1lxMR54 hcnsEzOhvV65vdCjpnPjWX Yhb4jgA5srpGYqt5Vxb8Bu obChXTeol7NqCE0nkHUuau qzlLO0LBQjpJNowkIhcqY6 bNykABDraH0ejB8mnJociE 3mHvNbRxEyPDbdYQ0kTYTl L6casNOrHKBrISDaV6inDt SqjS1gaAzuKoazxoO2PPEe cn19 Clinical Information (test code = [id number]) Shivani Schuler is a 47 year old female with IDA1. Gastric polyp x 6 r/o adenoma2.Duodenal Bx, r/o Celiac disease 3. Gastric Bx r/o HPylori Gross Description (test code = [id number]) n0vsyDNgCKUwrMAOBZO2GJ YoQB2iaVjniNr0bWgyZKUp cbL0uVCdRJxqq9cuFHE3f3 xjttZYUmqgLMAkUJ4kCOsh HLNyIP0yLdLlGQFaAwBwCT BhcGVydzEyMjQwXHBhcGVy vRU3USIdMJ8yyrqqRFcpUH iwRELrclG8LRCgeEEyR5Vt RBApIW2jtddtOZH5QGGCWc lgEl0gwXYyxXnsOwOiUaZk YXJzZXQwXGZuaWwgQXJpYW o8mD0EJmfpBPA9JIXIAwoc SqtadTqhp9DxgFKcXFMuYT xcaWQgNTEwMDAgXFxkYiBP KbRdNaD5Zos9YZA5SmI8EU i4RKVUVRHxRoawWGN9AdA2 HTi1FPDhSK7gGJhprSEnVL veZamvUGxlX875GKsgWDFn T3YtX1NsYImdZpDvCYjgMT VcNALqPXxnJMBrI4GIZDNb UBE6JbVuUQEhOXs4NBhpW1 JGODDlLYPyZuC1WZMuViC8 EFp9RQJBBf0dFSodSdOxER t4ARQ6NKq7UwOkKMKbOoTy VDPsBJEpJVtuyWNwJF5ngP lrKLPlRW0BYXKzCCwlPFPd MiSuE8YQW5qHEB5nESxnzJ JjaFxmczIyXHBhciANClxw IKPeUQ7NYWZmUPyxDIs8li CdJLEjKtLwCFNrL23iy3OR u2FnDR0GYXd9edXfncwwuA 6nPHOhsnZjRUlEbQBpqU6a tyZYTJiiZEIcO2DofpPzYJ qoQZUwil2whHufBDnjQvTz bGVkIHdpdGggdGhlIHBhdG qxwhHiS0I4vfYtDO6iDUEO QDHjxF5bINWfZSPrt1CjgH WksLsnJ3QewLRlYzJuk4q8 oWV3MQHjkpRqJRBxqCAuOI Cgvh5kKTwjUyEqH6T3HEKs FGBqv55mkQP5gmLjYfMvxN g2gNQtSXY1TU9qqNzqoeZp w9z4wS1dZMXpz9V7JBBpv8 H4CAEohnKliHIuyZXpUETd QC2hbaWcAT80JNSjTAdsQF msKPS6AGC7CBMlqXPax7xr qcdsYe9dAEdyQZ1iKZneDI 05KMQxWHilSCYdV0KuK4Y5 TKeiAQQyFUAefJMmxV4nsa NrwlDemCk2ENObATU2pPYi bNzqPZWzFscuoWN5TNDhLd RfgwVqd8LkjUt3jVZwMKbm BEOpnE7iuW1iHXMvZZCphx VNYcbiVXAaMZhda0MoUEpo cGljWHNhMzAgDQpcZXBpY0 5pn2ZTf6Cjc2nhxZcvp1Zx oTGkPF7wiTQsGK2Ed4jgQE ResRVmOTE1PMysi8lpEEto DYN5JADjIsDpXEVkAS1YJi HaSTckJUv5DEzoLBb1AXd8 VH2ETpFoFTLxIda7PqK0Mx WgLSo1RRmiSD7XYTT4JBVx ROVeLYjwHEN0YQRsXLe1CG IgXFxzcyAzIFxcZmwgXFxu D67laJXjNVwlUdXvJKnhrR beMHOkYAB9UC2GHNUwOqLh F7HBR7gIQJ1lMinsztOxAN AevlJVBvpgQYUhRY5RICXs AFrqATu3ghYlABOhNaGePF OgB85wv4JOv6SfNN9YUAs5 yiBvanmimN5uSUUvehFtl4 IzMFxlcGljWHNiMzAgDQpT tSIlgF4wavGXKKntZVSjS7 SuquQfTBtiCAHqsv9axGxh IGxhYmVsbGVkIHdpdGggdG mfBIAzlTuontYcL8A6tqSe SP3nRBKHIWBheM9qUKLaPW LcIVNrTLKcmC6hKDQ1s1Mn qvEoYGXEHHRsrZchQP82yH BjZWxpYWMgZGlzZWFzZSBh meBmodLqc83omjOnt5PtLK 2pfGjyTNkIHHcsEqIuCP0w WEPsmqHri3BzFX9aGGBxjJ ScIEIrsxzpbORqWPf4qOWe BGEgIpTjsLkbu6DpWLTuOC xoLS24uuIqBE4bZCqkKF8b TIfuCN1qZKEcTKNpKOXtTw QneFTgUrLjiGKkPdGsB17n SlPJaYSfb8PoM3sbRT3xaN PmYmvsnJUaMSIxxQdnn0Rg tNFtQUQfl6YdkEAoFNkpGH 1aSHE7Qy4lcKKwXFGczjL1 x4JtFNjdABWaPnrjHSClYY tfh5KmCAOcgRQJe9RtIW2X XHBhciANClxzYTMwXGVwaW AJv8HxFMYSFbqduMsyUjSx rUIhLxV2UDDlfBMfDWL8VF 1zwPkjNAExRPi7ZOscGKWl D8NgT0CmNAjxCuMiCDrcKD JsIVFhEBxyBYBsP3WYOQJq YWZ7FtFgEFCaWSa7QVlrR3 NEWXBmOBGiRjI8UVX6GoS8 TIi4SAXTQx7fUZcpJyFhAD XhMgM0YUk0OrAdUMPeIsGd XLNrYULnPWozfCJdPD4oqY htCVLfPBKwBRV0XLNltHDI m4SvQQCqZJhfEoZyGVFHHW XSRP7MWjWEQXRwGlCluIOb OD0SICDndtXxZOljmHbgmT 2mnJHtF2cjNfRyQxawyTmj TmVzdERvYzEgDQpcbHRycG FyXGxpbjBccmluMFxzYjMw SLUhrBHOr0LqHZFUIjRyCI NpbWVuIEMgaXMgcmVjZWl2 JFYuoG4dSu2ocVMilD7aqM QgUNpfDFVnk3u9jCE1oUTc qXG3yCOvdUgnCzObRW7xcU UtPMVOOZ04vSGjllQyMZWp aS7xGHDoMSYmZSZ7eltuVD RAHLR3nYYtk3W4CReoISD2 nB7opFlgKhJiK0N9TOTiHL Dql85zoKQ7htAnDeZwEKVl ql0guV4mDDzidmIjvOrgvb Wwy9C6HLXkt7J2ZYEhjfYn iJMhfWJzPKKoPmF5KEVbXb R8UDVxCMDyqJNlKYKgIX8v VGhlIHNwZWNpbWVuIGlzIG GuuQNvyqGrSGRtnt03I3hm AINovL5cm1knCjRjARPlLD AseBLqoVR1YPHbhX5liA91 abTttsRRPQ6xeIYcRO0DWG NiMFxlcGljWHNiMCANClxw NTNaCWvtm8AxVVysvAiiIT TcOoAoERvLbCvcBXHFW8es aOFfFUpzSEQRNPsKF6TMEN 1FZEKgyFBJBWN2FQ9kGAua JHQkE4HcL3FmdfW7z5nziB wmy0EtyOSiUG2ywMJlYJ6G XHBhcmQgDQp9 Disclaimer (test code = [id number]) r1ktiMUsWJEmx9vxVPCvkW FuZzEwMzNcZnRuYmpcdWMx SQmgkhCtSZqhw7KdI5MxYg AwMFxhbnNpXGRlZmxhbmcx RVMcDDO9tsQtYOEzRXhkRR PiPAueWx2mkRTzeXigGcQk YEGxg1gtfwOOULbfSqQkM6 79ATNuELphq3zhs7CoSNCo qAVyt7K7ASEBziggrTh0jI oaD73yd0G7RsvkT6opDILz CVXeZ7YdTW1fIKOaQzb1HX F8AQF4JEQiBQTmZ7IkXQ8r DPGpmORdEUx7l7afnSqeEK QdUWJ0c4wwICuzrjDuCP4t dr6ouDa1l1xrklVwBFQoCP WalLMAFTSeB4RsmQamXa1s xPp8nZtcEyvjNEF1Ife2MS 6zfp28fmr4cTkoOGZgcfxr EpK0JZugLAMaxbewHDb8JX xpVIUnjRU7RKUwvSKuT2Xz GWPmMY7ztrr6XRA6AHueGL XmHkC2DEFqdBIoKEYkjEdw SXkph138AZB7DhTmJF3lH0 Vor7T0fS9smVEjBSStjNBi FoCfBTJmiz1feYHeUOylo5 CkUMM4ljB8nMDfmNVoXZQe NA44Alfzu4RnYqlsp4CfD3 6utII9HPzsy3bjFM6vRpS7 fgFwVRidl7ayzU4jXlS0VQ yaCR7uEI0wDPUzeZ2eqrvm XHBnYnJkcmhlYWRccGdicm ZkEw3ooAgaGEO4XOewO4jt xP0mArI8BTmtM0wxxN0hHV j5USqtlNR1ZYFdfI8gVZ0l rjgpv5onUWphJMfmSBTxtc V5skS6ZYZegVFxS5OleV2h FMBkQR5nhkqqk1abOGZ4GU teLOAdGCE7VwDvKPQik9Er enn3BlTzk4VsvPLhDBioL4 6lw039OPQnfyPrF4dfbGEh smnpaUHdswwmJIgsovU9OI LqybByo0GtFDEsIKE4JApb BIufxWJyZSJllJotc1dnL0 RscGFyXHBsYWluXGYxXGZz MjBcbGFuZzEwMzNcaGljaF deLQybOwIzCYBqRFejS3db PsEtC4ObIZZxUjIilSPmM6 ggVGhpcyByZXBvcnQgbWF5 QVqaV8i4EBJmmcAnwKf7yc TyObUsOOSgOSF3EGdxnUSb RVIio8MznmpatXPuFe0npT KrWREegR0cOOFdUGZfSQev ZC5kjRu5JELPvGNdhABmBg OHAPOhZS57gwTtNQEQzsre j4A6UTzzKKZuz4YiuPEsR4 znu8TwDHCgj45gZZ1ja2M3 o4nzOVI5TE8ei7VuSJKmnQ LisWBgNQImz6Lonlefd6Kl RNNeosIur1ImHBCmorLrlT JkENFbiaMcsl8dtsAfVZOg KOOwM3VlwmnruJajrlJaPP Qbfe9sazTuPAH0LDYOMGOr FOBaq2YomN4seJJJFLS4cU Ilrs9yacXOdQEePENycv99 CVZxTV9eP5cqSOXoGYTzuq NeuCXjs8GqPQXfgOA0tJQo BY5BHcXPs69cRWNmORAOhs YfUTUbsRrsiEA4jlN7sP3d IChGREEpLlx+IFRoZSBGRE MaWL4gwfLta7KkmqEzhQqx KATqpMQtw9NkgRVxm9CbzL nnv7BmwNMjyAZvVW4zPOZu clxwYXIgVVRNQiBMYWJvcm O1p3QwNPYuDDXzSDC0xQxy aax9POMczG5aTCEdU7qwvt sxXEyxUJQuu7OmdI6awYIN lLJfc8VfcQBysTSTqFNrWQ 9qeuQgBHkZUMtDMLF0psSr GADzz1KuYWecD2toK87ryD zzvRl6aSR4VWX0mH9cKgh+ IFxwYXJccGFyIEFwcHJvcH BtTOEquFtjpiSzA3LesbVn vY7peACuyvOoSQ8hSV0aU0 E7oRPxTNHvfrZcs5zzQTqh dmUgYmVlbiByZXZpZXdlZC Mut1FcJMuvBZK3ULnjrfRu bmNsdWRpbmcgSCZFLCBTcG RfpJLnQTM7VJelraToucSk NE5mhW9nqMtrhB8nlMXvtE X6vdzyYNIxZOAbeGcuFEBk PB0dsEazvU9qEyRpIdNcNH ghNX5wCJJqX8utfHZdMZXi CWMzS5exVqHndH2azSmfCG xjZjJcZnMyMFxwYXJccGFy XHBsYWluXGYxXGZzMjBcbG FuZzEwMzNcaGljaFxmMVxk AmHwTULhIXinX7emWoNwU4 AuYDTcGyRtqSKqF4ihICjs UVZ7ZWRyVA3dmZSmNV06gG Fxo4eqQUputUndkt0nL58w uRJwAPbhpAklLFCgh33vy6 CrMYUgrvJfny2nJMPcxyM6 pF0oAHGzmFqhVNMmmGBgJR Qdz0WcSZazqTLeqaVcVBuq PXXbLIDvgGLdsxS1vjTnhc QoxyEbUSGnlOiiLLWmq2Wl YAUhXGsos7Vszx9ogRDpWO XeyhCPvTlrvHPplN4yQ7Hg APMzALIuta4bDAPpcL8mOV gsu1RctprzGNYdUVGkHMKc ytKfzq5zUETfkVUDYL0HRA jnpLNcl4JnfbFmB4pUGZB2 NUQwNjYwMjgxKSBleGNlcH RuWCPfra81PNVgkO5zgPjw QSJziU2xnD0ihYuymJ7aTl KpAiWtPIjzMB6pLEZdB6kx wPRvFXMhJLZhQ1txKqCabH 9jaFxmMVxjZjJcZnMyMFxw YXJ9fQ== Embedded Images (test code = [id number]) [facility] [id number] 19:23:05* Test Item Value Reference Range Interpretation Comme nts Case Report (test code = [id number]) Surgical Pathology ?Case: [id number] ? Authorizing Provider: ?Dominic Keita MD ? [...] HPylori ? Final Diagnosis (test code = [id number]) t3ykxBWnQUDho1vzWFRjzF FuZzEwMzNcZnRuYmpcdWMx HLbgnrQdAMbpeMxdPIP3YM HpGV9niGfmcIj7zUdcDOIn rqI2kFTsUFaok1ztXTJ5n0 avqdjmZJXaTRtpEw0kmDTs hGgcOsGrPLRzUGc6bE88BU KgkD8zrKBkKBz5ILXkjYNz yjHzTkBxLIRklKIghGD8VD RoSM6uebggDQceKRnfCETh tbQ0PGRiwYXwD9LpGYIgIW 0wifkjAXK2PZqgHMVdDEX8 OoKnBBXqi8Hpjeg5AsIonL FyZFxwbGFpblxmczIwXHBh vyXBZoLDTD2PHLVUZIPJB9 hTYNRAYC6CWXHNTszmtXAv XLVsNNPgPYRKVI4ZWJWmZ1 bEYvEtXR7XUYGcBGXhqWZa KCNkidQNDeCJOQ6NJU8QHP wgQklPUFNZOlxwYXIgICAg GHReQAlWM7EZSORqJSDXZ2 DFMOqQTOknUk5tBANILS0U B6eMI2QNSWJRKW4IBGwzBC TvOAZoZQTjJI0AKJqgDIEL GT4DKFPCQYNAOQsTYALBFP AOBBiFZIKTK9IZPIeIFWBv ooarWCHuTp7gN3QZUTTFVI wgQklPUFNZOlxwYXIgICAg AXWfAKXBO9ZHXmHZWU7JA6 6TTKJXKNJGPM1MKWRMKPiH XZ1TIEBRNQSXQIOAR8CtyV FyICAgICAgLSBOTyBFVklE JH1VEUGMLfPEOWrZPBMjAF lTRUFTRVxwYXIgICAgICAt NX6XTJxzFDPCAV9YIBPTZh dBTklTTVMgSURFTlRJRklF MLGBBHSKML8CNk2QWOOATn xwYXJccGFyfXtccnRmMVxz s0IqF4FhQbQmWIndmbNcOR EdTigaikrfLYOiSXG0xiJo QDLtYBkqKUKmYMeyMw4noH OlzYafLcRtWCBxc3rtuzRS PKsfGyVwA802LNAxEOjzz6 qrp3QuILVusQEzp3H8ZXBI syzwpAm2a6huNjFtRlK2yZ WoQEkyJ8vediYftUFfR3Ir kAMtzOq7gCodS15my1L0Mg lfG6jcCRVqACSbN0ZiHE3j XQVgNeu6PPN2URQ7NTPqFO YlG0LnOW6iMYTmnWCqWNr4 l6xvzRxfFIPoVTN7m6dzXR wpsqG2JG9hyb8ocJi0k3cf czEgRGVmYXVsdCBQYXJhZ3 FkkYyqTp3gmHu0nIuxAyte UVM8Tcz9VU8mnd94arq9cZ wxUGOnddvcLkH3KRpvUZGs aiquGFw3KDtcPFZtfMW6GG QxoRVpQ7SrFALbHI7vjvr7 VYF4RRquFKXsVyA6UBHwjO CuZJAzwRluXLazp915MIF2 UaSwCE6oE6Fwa1M4xS3scB NtJGPlaXYbAxOiLLImdd3n hNTgDGptx2AdKPT4bxP9vE PrbNVsUNXiXX87Mybnr2Li IoizOQV0VNYtxsNxh0Cat1 cpUiUdnnImB2lyC8KfBJFa ACOwUHEmLxLpwgBgt5Ptl1 XdmATidLg8x2iaFDJsVUSw sEwwy9ibJHT9QERdE5F4vM Nws1yeKKskDOAygTQ2znK3 UUEamGHuD0MunG1cHHQkQT 3dhqc3g2pkDKN5JGhpGJPg ZjZ1ktO3RBSdaGSkMHSyrK toIXwxl190XHW7BlIoUXPn c7HoK1GvqRtjM31viIyqQ6 8fODZezMncxD4dbFqpsT4i ZjBcZnMyNFxxbFxwbGFpbl xmMVxmczIwXGxhbmcxMDMz MMxgX4dpAlXeXROxiSbnDP rjg8VkAZMkALMsVjfgmrVk XHBhciBJIGhhdmUgcGVyc2 9uYWxseSByZXZpZXdlZCBh rIfgd8WhQ7rxOP3bP8TdpN PinwKwdxWoQAubXHFjh5t2 dEAnsSnny9VqwIJiMP30ld NfGGGjUAG2SNEml0rvPU06 vfceGbXxbS62opZqotIiBE Ppl3rbE7uleVArn3Jit8Br urFbJEafq6WbPA2dsUEjwi vriBG1OQSqcBMqxwWdclG0 aCuxSKFowV8qeF1dlByilI 2dLgUfKgMgNSaiEP3xQUCl X9whrIYmEZUjCWBgL6unRf YwlV3hnIkeTukcjxV9LGAx cn19 Clinical Information (test code = [id number]) Shivani Schuler is a 47 year old female with IDA1. Gastric polyp x 6 r/o adenoma2.Duodenal Bx, r/o Celiac disease 3. Gastric Bx r/o HPylori Gross Description (test code = [id number]) z5cawWRaTWBpePYNWDJ2PX JzVA4fcNykvYg7bVceVEXt ffP6hCLrOEsne3vvLFV3a7 ixreDKNbclWNJmDP5gVUab WULoBA4zCxXtKMKrVcKxRX BhcGVydzEyMjQwXHBhcGVy zOO2BTCpWF2vzcupGAooEW maKBBuxcP9AJTssNQjY7Lg FLDuHH9vmfuaVQK2KJQEMt leNy8ogNKgrMvjAbPrIvVu YXJzZXQwXGZuaWwgQXJpYW k9pX9ANjszNGX7LWTKXayo DvjlcRksp0BegFDdSYAsCS xcaWQgNTEwMDAgXFxkYiBP LqNlIhA7Ftm4CAP1XeN5TI l0GBEIIVMdYvwqAMN5PfZ9 XOv7ISVlXE0wWTyscAMlKP fdIjulIJemQ306MBvcMSTw V9VnH4XeKOrsIeHqRAsaRA NgDUDhEBxfICUcN6ODRXZo BAA8RcRbTCTqVPt3MEwoC5 RHNQOdDTTkKrH9JKKjZdD1 LSd6VQGNLe0sPOqkDnPtVM d6KWO7AXu5BzLoGDDbWdZs ICGdUNEcKSyypQYnLW4fdU iuWCSeXV0CDMHvUXbqWPNi EiZxE8ZYC0vXEG4hBFwnuA JjaFxmczIyXHBhciANClxw MGDjHA5UHLDxVAwzSTz0vv WzZUHmEmJzWSDaQ87az9MK l1IbGG2NVPi1qkTpmrokvQ 5aGWVdrlOkQMhKiCSntK8n apDTLDwzTLPwI4WvhqWgAT miGJQfjf6bdMzmBSwcGfHi bGVkIHdpdGggdGhlIHBhdG gvehOiW1A9dzCqPI9mAUCN ZEYbhZ5kZRJkVSRgj2QdzW OvlUagE4QwuIMjZvKes5l3 tGY1SXFimxYtNEPdmOOgLI Hbtz0gMDieIqJtJ3E4CWDn IPZrz70boAZ7ypKmHjHrbN y0xRQoNTV1EJ3kkIpalrYa n1m9aJ4cCSNcv7D8KDOxf3 W7GZInxbFjuOYifMQpDXUf WE9tweBmPR00HFEfGIizIB lzJAN7BSJ0REAkmRRus2gn pjjvMh8qQPqjDR9mZCdjIQ 83EHDjQPiyHWXrH4QaB0X6 NWwoUTVdTOVjmDUzxD0qza ZoohGnbYv2QHRvTKE6zOBc tEwjVITrYmuezMA4CRQzWh SsttIgn1NcsEf8aGMnCMjo FXRtrR1ecE5yOPKkLHOqub VHSlwzSEYcKOdht7OaFHeo cGljWHNhMzAgDQpcZXBpY0 3py9GRm0Ire4cnfBiyi9Bt aHSoEO6nkLDxVQ4Ja1daHB EgsTEhKYM8OXhka5zxRXmz BSX7VSRoZwOhBMPsSX0PHs RbCHymDUi5WBkuJLh0XSd3 AB4BZfAxRQUlXwk8PvQ8Ob BmWPu8GHxvGM5KDSJ5KTNm DHLfYFbjNSQ0LCXbDEk2HH IgXFxzcyAzIFxcZmwgXFxu F89jvJTpVKgjGnMvNWqziS piSAAtSGB8VT9IZZCsIlGc H3KHF0tBGQ9nHvotocTnDL MbgqZRGzvdWVLxSN9TIHYp ETtaNZk1kiPfEJXgMpOtMG BlS23ez0YFn1WvQD4GCPy7 tqKofsscoH4lYBCjpgSye5 IzMFxlcGljWHNiMzAgDQpT gOWmjF2prnFLHRiqXUAwY2 YoqjZxWIhmOQOcin7ieKyc IGxhYmVsbGVkIHdpdGggdG raHLEpyUxddgEyA7V7coDc EC8bCSPYUZBjyK8nCXVjAN QdISRmVQSojP8dZPV4d9Of smYzEUWTNDUdtEyhHI25kG BjZWxpYWMgZGlzZWFzZSBh vmTcqzRqg56wgtGmz7DsTC 3atPytQDtJUNbyCeVuVY2g YCAktcWae8SrLF0yBKPivV DyYCJcrrxvmWQbIOk0lTEa RPPsQbDvgPwep7RsYGZyIU zoEX73xqFuCW8mVTfmGM1a AJmuCP1rPSBoHISqTDPeXd LxyPQeJwBxzDGwYhBwV00f YlQCiYGkv7WuQ7eiQQ7ccC GoRmezuBFpALXljSxtz4Wm kZFlAOHvu2KnmCXiTNzsKM 3pBHQ8Hh2hyNGlAGEvcqB4 i3ApJDltEUGaRhgdFSDcVE kay0KwXJTqcPIAz9WeEV3D XHBhciANClxzYTMwXGVwaW OPn6NyNIOHUsfxeUzpSvJe gOQzEqM1HIGpnSIpSCX4DY 8pnVydZXUjMSo1GAyyMAKf O1SaO1XtERiqJpEjKDceXC ZzIHPyUNzoHKDlA2WVAMBs GRI2IrDwRRXnKTa2OKkfU8 GIFLOqMSCuLxG4PTL0OiP2 AAy3RKNFCv2iZZjcGpBjTF FwZaQ5EZn9GwHiJNOwQlKp NXSkLNZkRJjwjDBtGK3hwA kfLSRfZJOcCPR2KIQfjBAA g9HlPLOwRRmhAwBwRDZUQA IYIB4BDfYTPOArFlIpbUGr UC1GWURpfgXuQAvbsOzmbS 0cdRAcW5xqQhUsCiaxqSjs TmVzdERvYzEgDQpcbHRycG FyXGxpbjBccmluMFxzYjMw AHHtcCUAi8FrAVJVCgZwMP NpbWVuIEMgaXMgcmVjZWl2 OKGanY8wXc5drWWthH5gsE MmAIquJHJhy0d3nKA2gRDn mMM7uLHgdChhSjObUZ4rlM HbKTRQFV76fZZgnlObZJEu dL4cUOQqSEWiYTL4dfhvLX PDMHT1tRUzz0Y9ITncXMA0 sW0ijBdoGvNhC6A5SSMdUQ Yin72uxEE6hoFqKzIlQOFh so0azJ8aMLdzotGgmZwexz Tzu9M6XHQcu1D9QUJnvbRc kQMiwINyTJHhHnR0FBJqIk Q2OUFrMMOhjGTzISZeIB5g VGhlIHNwZWNpbWVuIGlzIG NjxAUxirEhHGFqwf05V2si NODjeE0zv5igLuMbVJKzMJ RngONtoTD4UVWnlC6kdX42 ezLqgpCZWX9lwJSqHL2OQJ NiMFxlcGljWHNiMCANClxw JWCiPVfcd4UbJEhogRnsFU ZnGjDeXJrWoHcrYZVXZ8hr sBKmOAqmQYZCLYlTS0HWGW 6PXPYicGLAIIP5GU2wKHjd JJDnU8IbI5WvwhN4h8msxI zny0PqzICxPW8czUFiQI0A XHBhcmQgDQp9 Disclaimer (test code = [id number]) p6sndKDsPYSea9tvKTCfrM FuZzEwMzNcZnRuYmpcdWMx ZMchtxQeTUnbm2XqW2DgQu AwMFxhbnNpXGRlZmxhbmcx DFUwAZX4rgHcGJNwTPtjEG XhIVlvZy9dnYBwqXfgQcUr XYWqi4sdayNPNUzuVhVlY2 44LNHyDCiyp5zre1EwTROt mHGqf7Y0PDJNuycwbQc6nC lrG52vv8R2PctmZ0iyQTZy GVMsX6BeJF3bNKZpBoe6WG R5KOU9DBMwDSOcH9PkQT4b RMGfhGTnNJu6c5famUzsGP GuZIR5b7kkBKwkdpDuIR0f oe1waTp3a2ltyvVzKEQlXC YcqNRHPSZwN9TggJosYl1v qUa0yJjdVutpSBJ2Kbd1OW 3vrd18oek7cFzaAPMfhfzh VwA4CUsvZOYphmixEWz5HB rgNSItmOC2TNDniTDaT7Qa XJHxAX8uujl4LVP4NEdmYD QrOxH7BGMemKHvFTNdwPlb UZhzl518MLB3ClXjLA0iI9 Liz8V2wI8vvWLkAYUbpVJn ZqItTTBlul9gwZJsYQlzb7 ZhHIS1saP2wURjlFBsXXLa UP42Tkcsx7VyBpiad7PkR8 4esMF1ATshu4inXR0oQiT5 udTaTNmpd3acbW8jIiW3HL srVL0dHV0bSSNckL8mptpr XHBnYnJkcmhlYWRccGdicm IyIu1kiQqlVLT1SUrhG2an eV6gYnO9DZeiF1wvbW6gPD v9PMzedEU6VYFerP3vPL8t nhfnr7mwUQvmXVehMZWilw L6ssD7EHHwuGQsP2WmsS7k TMIzCN3fsweds0cpFJQ9EN hrWGGuLCT4YfAnYHQje5Gt knp9QmTlm9JlmAQfPZxyF2 5dn496NYEyyiEvV4hiwJMs euqvaNNkfqesLVdtckI2DD DwlxKbd6AkXPUhQOR4BKbe WIdugAZhWMEhbTbro4jzY2 RscGFyXHBsYWluXGYxXGZz MjBcbGFuZzEwMzNcaGljaF ywTUtyBlTuRTQmPMnbN5pp MsXwD7XlJPGcOxBmmEMiD0 ggVGhpcyByZXBvcnQgbWF5 MJfaJ4w8OEYcjmAfhIa0vz QoKrRgVSXjOIW0MJdrxJAi BVAiy2AiwoldsKBbFu7eaF RsILQixW2bPFSwKRRqRLka UJ4wvKf2CQZOvHSyhQKkBc XPLKXnMD11otYhVFVBtiif h8K8QSfwRZAtc6NbvODfM7 ffd2LlVUFrq10dQF4qj7W8 e4dwFXJ2JI0jz7ItXUOhkM XshKMvKPVln2Joeoytp1Rl OHMkfuOky1PcUBVgweDmaQ JdQZPvtiGgps2eyxQqPRCu VDXeI1YkfznxdBtsmpPsEE Gpli8wcpCxGRQ2SAKRPSVj POTjn8XtqG9ccDVEDAB2lZ Ygip1pbxAByYDoGWZjfs60 RHYaNO2eN5jkLSDkIGJifu ApoPSae7JvKJOsfPS6oPPj ZT1VWyLTa58lTGIoSGYTwt FcUYOdeAvjoXC0ndV9qB3i IChGREEpLlx+IFRoZSBGRE RjLO1nzhQpa7SfznPkrSym IGXlcBAfb6EhgFKfl8DvxC pro9BfbZKinWLoRS7tIZQd clxwYXIgVVRNQiBMYWJvcm H8b2NqCRJlLZBpOOY1xMxg wbc8COSwoI9vHQOxT8afig obVQsoQBJoh1EqwV3utRTV bGXxq1AtzIEdgNHAlZCpVF 6ztnBaPIfHJYkRTFS9fyRn SQSlr0CqVEwwJ4ltN60byF xwvDv1fMF7VOF7mC5xUab+ IFxwYXJccGFyIEFwcHJvcH MoPBVddWrmuwWbT2HdtfHn yS3xnFEzerIkIU1oDA0oE2 Y2aIRpBPThreMau9qhCLcf dmUgYmVlbiByZXZpZXdlZC Hfa4KpCFeeKGR8IHnscdMy bmNsdWRpbmcgSCZFLCBTcG VaxNFiHOL3UZmupoWrpiUg QX6zsH0vtIwtlQ2bdIVubL U7gjzgLWWtFTWizGwvRJAy CY2osFtixV8gIoWrLvHjLX meKP0fSIOcS2rqwVOoMWOw YTBxN4dmJvAkyO1uzSyuHY xjZjJcZnMyMFxwYXJccGFy XHBsYWluXGYxXGZzMjBcbG FuZzEwMzNcaGljaFxmMVxk JaRcLBTcWQswE2hiGrKmF3 ZdXJVmSwBvxZEmK4vsBJmu HFO7CLWcAN4kqFNlDH08lI Ebi0vhVMorkAihte8wC35g fCYjLXppgUnfLYGjw86oi3 PeLAObcrIdst7wOZAotkJ9 pH2dTSDqlOumGSJspZSqOM Erk9RgOKygwUTjauVmLSqf AKHgZBJvlZXjgeM3dsRruv MwmlPvRHUnfYsdRIGlb0Td BZBcDUtrb0Mird6xzWTcQB MchjXSsXbreWCjfG7hB0Lo OLOzZXBhis7bUGEzqP4hJA ldu6EbrosvVBNiXPGzWBNy moRnfl3yCDMcjUPIAM9CBB atuHTve6TsueWjQ9pCZPR3 NUQwNjYwMjgxKSBleGNlcH HrADKcvi89GRVoqD6zrUlm IOQjzN0lqN9pfEkyiM8yEd ZpOwJzHJbyUC7dFMUrR6ch nADsQEBvULMoW3brWmZvrW 9jaFxmMVxjZjJcZnMyMFxw YXJ9fQ== Embedded Images (test code = [id number]) [facility] UQLT1631-08-53 19:23:05* Test Item Value Reference Range Interpretation Comme nts Case Report (test code = [id number]) Surgical Pathology ?Case: [id number] ? Authorizing Provider: ?Dominic Keita MD ? [...] HPylori ? Final Diagnosis (test code = [id number]) a4tquGQxBCBrr5mkTMJkmS FuZzEwMzNcZnRuYmpcdWMx ALaipwOvKHaksCibDUW5MF GjBI4fwHxelBb5yTlxMGDn ppL7gYCdBUepv8ifQLF4o7 qhnreqPZToEKsdNc3nwBHs pRhvDyCwUYUyYLf0sR81XL IsvE8bhXVvYMn7ZOZngJKc deSxVzVdTBFlzULjgUD0AH BgQV3xlwudGNprSYhaBOMy ltB4DKPknZMsA0LiPWAzHR 6oeyhjIBG5CWzdZQGeAAM2 YgVrFQAco5Iqpey0GwJdtD FyZFxwbGFpblxmczIwXHBh ohJIDqVJXH9PUEMQNUURF1 nVQMNMME7NHVJXHqkbiALp UVJkRXEfCSYCXO5PJQYoA2 nXElDqUJ1IAZBsEERjoRLk VXUxeaAKXfFHUA3MFY3XUT wgQklPUFNZOlxwYXIgICAg KGEoKZzTA1EWYUXpKFSDA0 MPPUoDCJxePx5mXJEQUI7G U0mDJ1JMHNDRHX5BLMdeXG MaUVNdMVNeHZ3FPFpsLQDL QQ6QHMKASJLSRQzMKABTJA PZAMfPXYEEN5KVJSgSPRVr vohxUPEsWk5nS6UGFMAMNC wgQklPUFNZOlxwYXIgICAg HXWqRAHIF2ACTxIXYG2JL3 7INJHUMVKMHR3DOXHCXJaY QR7QMPYVYMSTTUMIJ9PdmU FyICAgICAgLSBOTyBFVklE QN3EINXWTrSAXKoNCUViNZ lTRUFTRVxwYXIgICAgICAt HT9CYOiwJCYSVJ5IIFSKQx dBTklTTVMgSURFTlRJRklF BXJHIOOCRS2AEd9NIIQXJr xwYXJccGFyfXtccnRmMVxz v8WrM1XnNwLzEDdbguYkDX XfLymndbmaNKKzFHI0jlOv FUQeHAxbFRLlNUuxRf0bcM RkbOyfByNaNLTsb5dsxzEP OOzmNxGsY406JUZeRSelh0 zlp8DkOZCczDUln1H5JQRN vehclJq3m1cnZsLcIjF1gF MsHNmcV2bkzaBdjYAzP1Ih vOGreSg0xWjzG65pe9L8Se uwH6ddTKEpIKOpK9JzPC2u PLFgYuk8YKO4TKI2TNApZR ScL5CdQS4hTJDvwQHkNMa3 i2nudYcqHSKoYFP1c1ekFW sdgpZ6GA6knl1egQc2c7ev czEgRGVmYXVsdCBQYXJhZ3 LavDjjVk3vwSb6tDbgVvnz VLW5Fba9XA1hdx68byk7jE yuINObrvfuAlN3QWqlVLMl yaqhLVi7VKfmHZUteII5DT KsyUUnV3TrSQOgQE3gfcl1 YRO0FPvuKWAxEyC0CFIrpY RtYLJkaFapMYoug768GIC8 AzFrWL1pO2Kov9K7nY5raE MsQTIlvTOaBrVfKLEmzk8h pLRhIRbsg3TmPQP0akG6nG GjtVRbMUSeYT45Jeocb7Gc WtqoYMB1NTAwfzPxg2Cwb2 tvUbSfgrZpX1rtY0DkIMFd BLGyRIKoWdCaneOli0Azy3 AxrMEdzRi2m1qgDFZyJEIi nLrkc3avDIA7XZXbS1V2jC Xsc6hdMHptEDGjaIO8rgT8 LBShuUXvH6YkpE2mBFVkGN 2nddw2d8gqFRU5KOktPWGb WzF4hsT1ZPEkcGVyPGWmmD yqYDabo337MKB7PuEbDZRk n5RkH7MajOgpE14urFgmL4 7dIGCxuSyuzC9xjJrehK9h ZjBcZnMyNFxxbFxwbGFpbl xmMVxmczIwXGxhbmcxMDMz OMtmD2rnKlZoIYXskMkzWI wst0RgZPZwOZIoDrpquwQg XHBhciBJIGhhdmUgcGVyc2 9uYWxseSByZXZpZXdlZCBh kWddw2AsL1quZT2aY5NnhW AtsqDxcnCrQPwmLOAcb3n6 aMUtjApgs7KloNCnQY16gq OpDUHkSDY4KRCtn9uvFF80 bajyMpBzzC78hrCrlbEqHB Ypc1idG1ukmHXsy9Lsn7Kj bkYnTQwzu2RcHP5qtCOwng jakNK7HLPdbEEesnFovyP1 pNusEIHbgW5sqZ6mxFxquJ 5mCiHpGoWpLShdTV8iZUGi P6kwsOBdXLPdXDVaP8dsPd AuyK3amNpwJqesuvE7SAUa cn19 Clinical Information (test code = [id number]) Shivani Schuler is a 47 year old female with IDA1. Gastric polyp x 6 r/o adenoma2.Duodenal Bx, r/o Celiac disease 3. Gastric Bx r/o HPylori Gross Description (test code = [id number]) t9dtdVOzGLHftCTTKEA8TU EiHL6jpPyewUx5xUrrRDMi onD4eBGcBAbtm1ilZRR8c6 xbbcZUFbviANDoHS7fPSpk NBQeKY1bOySvRGCyGwJjJB BhcGVydzEyMjQwXHBhcGVy eKJ7SCKcAJ7rgxqgPMonUU jxNKAdckZ6VKLmkKBnI7Bz NWByFO5qbloiIIT0FIKMIj mtOf2paXDiaXqiQgBkCiWh YXJzZXQwXGZuaWwgQXJpYW m8dE4QEhkmKZI6UZUEQsmj EreqzDqul1SwaEXoZYRiTK xcaWQgNTEwMDAgXFxkYiBP HbIwLpG0Qgs4HYK0QeJ3OZ r7SUYTCMIsGgvvRPM7DaT4 QXs5MILbWL2dIDftcLEuWH niZzkrLTvrB156FAjkIKRt S9MnF1JrLHdkWtHrSIbzCF MdJHVcZDxlRBYeW2KZVMDe MJK2FgIiLQOpGKe3QQbcY0 GNOMNkEYEeQlJ0IWWkDzZ0 SCh2ITFHBt8yHQczEgBcVM b9UUF4QIr5DnZeNRBdQhJb BNBxNGZvUGlhaKXgML0xvO emRUZaSP2AOCHsWGrtBAHx HpOgJ4MHF4gPMZ3yKMbdvZ JjaFxmczIyXHBhciANClxw YRMgVS6MIXNnVItaBLw6mg ZpMQZxRuJzKRCnK67pd2KE d3VzJE6UEMr4vjAnvppgkO 4cXPLppdYbFHgQjBLglS1g gpKMLWyfMDWcS2VaifVaLZ zqUPYsvj7auIydHAfoNaOa bGVkIHdpdGggdGhlIHBhdG fyjkKqT6S7lhZvUI6bTSWE BJBdcW1bKAQnFTNkt0MwzA RvwNccU9XntONuJzLqi5c8 sLW2QPZeghHcJFJwhFQuZP Bjiu3jUIxqRdVkQ4F7RWHm VMPfc70fyQE6aeDgGfUiuP k5kFZfZDD1LV1doRfvczKm c4z0uL5hMACgq5A3THQhw1 I1NQDlcqExlLHobKVtRXSt OH7ujwOdWJ43BQZlBKozTJ cxAUN2RAN8CPWmkKBeg1qw gqdvYt0bNOtmRQ6pNIcuHZ 66JSMoADshIJMfO9AlZ1S1 YHpvNBKtIWHeiOQwjB6ltu AavkAyoRz6EGOpSSB5iEYw hNhzXYIeUxvbyMF3DYJfZf HetmUsy3YrmBa5yJEhVCnf CDQekW0dnU8yESZdOYKgve YCJuxfEKQaEPius8SnKPvl cGljWHNhMzAgDQpcZXBpY0 0pj2RUa1Ghy1ggqFbvp6By dSThZM8zuIWqAA9Ls6zdGX SkfZVaGYM1ESqck5vgZPuw WMQ8BRSnCnRcNMFxMQ2AVe EgUUwfTFo1BFueTGr2CLv0 KC8KDqCkOESvZgk5CfY6Nl BqXNo9KQknDB7FTHY2SAIj YLQfXIagNDD1UQFmUNm6VN IgXFxzcyAzIFxcZmwgXFxu I29tpCVeUWdxAfYdQQqslM gbLACbPQB2TG6EVNPkWeFk Q5FUC7uTZG5qNlveyzYrDZ GbooMFJqkzINAuYW3OZFPn HThxRRa5jvVrCWPxVkUcNH UtE95oc2KBh1CgHU2QSOs6 qrIozgbghL8uPGGugnOph3 IzMFxlcGljWHNiMzAgDQpT pMQgfS7xnaPPHVhmNOFgK0 NxylHyTZbnZMLkfn6gxAcu IGxhYmVsbGVkIHdpdGggdG wjIBSxhXdozmJkI1N4sdCo MG5aGIFNCJGvnO0bTWRiOR EfIJVdAYWmgU1pEPK0o3Jh tqStDSSPRJKedHvrOA91zT BjZWxpYWMgZGlzZWFzZSBh azVzbrJvv07inrXug5CvEW 5sfPaiJTaKXZbiYoJzXB6n NAJofjSfx5AiFP8uCVMlkE HvZEBmtskpxEFrJTw3fDAo LVNsYdHydOwrr2JiIXCaFB qjBU83vwOjCP9yGNowAW0k AGrmHN4jRTBrLMJbZBRoAq DjgDYkWnPbhYNfJcLsY01d VrYTnXAdk0BgK7zoJE9gmL CuPxawhFDsPCZbgYuwr2Lm qXJpZUIil2AnsTYtTAlhRM 2gIGA4Bv5swNMoGJFqcpW4 p3UeENjfQWAmUxpxXEDaMW gjw3BlQFVrgTUUf6TwMP7R XHBhciANClxzYTMwXGVwaW QQy3KaDHZCIxhzrMkiLiYb aZIiBxR5KOJbnJXrABC8CW 1kdJdaIUTfPIy8DMgiUYRc K3LcP9UwZHlhLiNoCKcfNP UmJSAdWWxkTBMyA3FEKAAn LLW5TxHsJGOvRCc3AYpmO0 KDWOVnWHVjPtP8VCC4DxL8 OSd3BAGVRk1nXVlaKmKgWY TjBpW8IWj1NxTpCUJmSsZp ZDNrRVQvNLwgyTWbOG6ojN afZXZrKAQpGSU6XKLmxOHF f6CqUAXeUXmhDmFjCDVEWG QJJI0EIjTDAUKwHzMbdGKx ZH7BQGAiehTeZAnzkKcfrP 2caNTvO6piKuTyXympaIre TmVzdERvYzEgDQpcbHRycG FyXGxpbjBccmluMFxzYjMw AKMlgQNEe6AmJBARDdFiZY NpbWVuIEMgaXMgcmVjZWl2 PQBhyO1eVi3reSFmnB8maE ZqNXjuDSZpe5k3vTA1mLOg cMP4mQHhuZtdLxYiTZ1sfX WbRKDZYL35dGPzsgPsZLWj vR8tRXCsWKOoNVG6qxwzNJ KIIOC0sSEas9R7MYowCNO9 jO2qpZqdSpJcL7B5ZAVlMO Dlf87vcUJ9sxBtUcFzNVUj fc7vvP8oDUtrbkImqQzgtd Bod9K0WIVum4Z7ZQXqdgUb hJJjaZMxQKIpAvS1KCOsTt E2ZSXpMWPdpNPcOCPxGN8z VGhlIHNwZWNpbWVuIGlzIG RxoEFokuDyOCDpge53E3my ZYLzuP5ep9vsBeTvFLFsMC LpmYYfbKE6SXHeoX4vfH96 weXdtsZVYP1qvFEjVS6TMP NiMFxlcGljWHNiMCANClxw ZGQsNIket8AiKByqfWhdCJ EqLtKiUWiVfFrhRFFZO8ea sELlILzyXABSMUaHI1IJEO 3NZMEjhMMPTFE3LK5zYGyx JCEoP6ZlA9CpfzN8i1vbwX cpr6TgxIUnNQ2ttBDlXA2B XHBhcmQgDQp9 Disclaimer (test code = [id number]) q2jkqRBgWWCsl0zqYTRguD FuZzEwMzNcZnRuYmpcdWMx FEldsjYsDWnti9WmZ1HmUr AwMFxhbnNpXGRlZmxhbmcx LUAoOIQ6ahMkYUWnWZkoZC KqKQatFg1ksYFevVqaGpFr FNOit5bhsoLLOOgoEoEvS2 99OREqZWfdi4opl3IbLSQv jGAfu0T6VJVSevujjPv2aA mrH99bo8L4OhllN7esJSTn GJDhY2TbMZ5fKGVcTfu7NS G6SRZ2AAWgHFBjA3JfDC8u WBQezZFcNSa0b2eavHwpUM YmTRH3e5haEXjuyfTgYH2m da6mbTl2h8pbtgSuZZUjDR SjzHSQFSPuG3SduTcsIb8e pSl9fPnjImjuAPN4Fzp3DE 9dlu09lzo5tNmhXZAlzypo NiV9XWjxYMFbzhqrKCg0UE ieEKUhzIE2CKIreZShD1Nv NTJuVX9mvkj4EVN0ENpzRS BlYnW1WQVxcIGcLTGynIun HBmkq279AVQ6OgSiGG2xX3 Dwh5E3aY2moFAeDTAzwWWy UzTwZFWtrm1loBJwEHptj9 MiQBI6wsU6kRRicJXjHVQl PZ38Tavrr3ZjFzfdv3WzP7 4meWU3OHhjg5wyIE4dEvN5 ikPgVTlsl7oldL7cXtE7RW piOL1uIM7wHEGoeE4vpqow XHBnYnJkcmhlYWRccGdicm VmAs5lhSawGVM4JKpbM5zz qW1pRhG5KKntZ0clwB8qNB e5LTihoDO7XRZmgM8zVD3b skgat9puKWbvMSlmUPEgmy U4uoN5ELGviBTxH2GhnN5a KNEzSM1zyubwo8syDXB8VK ecOAGuARY5JmGzBXAwd2Tt peg2ZuXkp1FqrHLeAPgxJ1 1qv726SJFaleEhL8ihnLOg otnbaYHhlqhdBVvgdpQ1NR UtpvSnz2QnZSJxNUT4RFoq OEwhaDUsJSDazNzzm6jrZ9 RscGFyXHBsYWluXGYxXGZz MjBcbGFuZzEwMzNcaGljaF fjOCmnAqDgPXXyUAvbS3tg YxHfU6QkTSPyVgVzyOEjZ8 ggVGhpcyByZXBvcnQgbWF5 BXfhT8x1EPFexpZbcDm2lz MxRlXyWOKpMAJ8OZnfaLZj BQLrf3OaooyrgPCuTm6djU DdHONvkW9sMOIcTOKkNGck WL4csIm8TXBBkAWizHPmAt SRPMSbZI43nfUnGOLXbuww w5N9MUxjHSKjr2KscTNpR0 fwp3SvPVZkn70iHB6qg0P1 g5dgFCB4DB7aa5AaNSOabL GedRUfWETsg5Ckzuhlt1Va CAReprXtf8CkEWAwutJmbB WxQNGkzkJius4bviCxPQTa CIHrU9ZgkzjucBxongGdHE Wyqz6zyuKuNON2MXFDYEWd PTStp4HyoK2yfBUOBVO3cZ Mifz1pdcLXwZDmLQBucb10 NUEcKA9oW9hwYOFtQMDmxu BfqLVce9TdBJUrnNB7oZIb RT6FPgNVy01cFEEoCNPOvp HmHLBokJzwyVX1yhK1yO9l IChGREEpLlx+IFRoZSBGRE CjGM1hqcWee8GhfpErpVqn RYCjfPGag4BkcMCyl8NxvV uci8YffNVxzAZnJS1vCSNx clxwYXIgVVRNQiBMYWJvcm Q9b6ZgWDPdZIZfPCY9dFvl rmy7LPGaxF8yVOVsS1pdyp yjYBcvSFOib9LaeC9azDTR hYZhv3OlfGVcdRNWmVIlWK 6wseTsDXpHCUtVJYN2hjPk QMYvr4GmXWrxO7vaI19fwJ vfpTi9hAG6ABR7pA9jFzv+ IFxwYXJccGFyIEFwcHJvcH AcNSWelXadtvYhD9VgupWb lX4xbFNohgPkKU5lRR9mP7 Z2cKBaRGBddxTyv3miRTxu dmUgYmVlbiByZXZpZXdlZC Obr5SyAQtqVHP1WAjrooYh bmNsdWRpbmcgSCZFLCBTcG YicDHwQYY7KZjelkSwjiEr IE6wxA9ssUywrQ3viQCprP N5bxykEEDhAGBusEyfABWi BQ0shXcdfM2kGdBwYvQuAL hbKQ0xZLWoM8syqMXzFRXb PSIaO8uuQsEzkN2noLzfWO xjZjJcZnMyMFxwYXJccGFy XHBsYWluXGYxXGZzMjBcbG FuZzEwMzNcaGljaFxmMVxk AmHjMXXdIWvnK8jcTaAdP6 LxSAWlSzTwwEOyS3yyTRpf XQE2YTBtPG7bqKDqBZ70uM Vue3qdUJabsPumeb6tP86k lHQrENobzVtwNVDol80ua8 IfSSGaamLcun4vKMNclcW5 hN0bLKYysQibTZQvpJAwET Gmg5ZlTJyvwDNcjsUcYVme HTNlLDKxzHDjlrK8eoDijt HxryTdOWHhsRptJMOwg3Bt VHOaJJrvi3Mdmj3vuDTnPF WhtlJNhMfgyBPclX9hO3Te PUYtIIIabk8qTUGqeH6wEW myz6MpqplnBXLzJOYuTHTb nuAhrj2aAYSkaMWJWL1LCW hutXSws8HcigNeC6pEAVR7 NUQwNjYwMjgxKSBleGNlcH BaBPYjog21NYChfJ1fvXql ERVfrS5vwJ9esJdedN0jTr WpBzHiLFfyEC7jKLIjE2qq hFUaSTToRRCoT2poRvVruO 9jaFxmMVxjZjJcZnMyMFxw YXJ9fQ== Embedded Images (test code = [id number]) [facility] [id number] 19:23:05* Test Item Value Reference Range Interpretation Comme nts Case Report (test code = [id number]) Surgical Pathology ?Case: [id number] ? Authorizing Provider: ?Dominic Keita MD ? [...] HPylori ? Final Diagnosis (test code = [id number]) o9fceDNyUHCee7lzJYFfvE FuZzEwMzNcZnRuYmpcdWMx GGkhccIiCIuddRjeFMS8RW PxGY3nvSyjzJx8bXpjJXCf uyP9mBMyQUmpa0wzLNW8w9 kpfxazPVPqPBluUo6giEGx jVunGvWvCMNxQXb8xI03LV DifG8srFOkMBh1UYTclWIh afPtRdYxOXFkrVEubAG4RD MoQS6synjePOclXNouOEBu aeD6HIAqiACnH2OoMBBdDJ 0utcjoPLQ4OUeiQGIsQVR5 YaWmUYFzk4Bhviu6FoQcnU FyZFxwbGFpblxmczIwXHBh rbTZUxWAXG9LKEQTURHUL3 iZMGELFF2KSAEDMkfahSFr MSEvLBWuZEONJA1HMJIsJ2 cDSbOiWX8KFQFqPMMluXFb VCSotmBZZqKVOX4XEI1AAA wgQklPUFNZOlxwYXIgICAg CSLkVUfLA9AAGSRgKOGLF4 GTHGjRPHncUf8xYXNBFU8L W7qGV4USMEJKGD0UYEswEV MzXWZqLEKiFR3RJVswGKXU UR3ATNVJWLPGFIpSUFLNSF LYJYlPEETLQ9BJQEtFYGHn xwytTSDoUh6jK0LCQZYUII wgQklPUFNZOlxwYXIgICAg AADhAEOBZ1KPWbETRM7NX0 6JZJYGEOVIZQ4CEFYMDZvO MZ5UNCCACIQOBAAAA0OjbX FyICAgICAgLSBOTyBFVklE NO6WJEZDJdDKFQvDOHNpGM lTRUFTRVxwYXIgICAgICAt MA6QVMpzPJKHPA7ICTIIUt dBTklTTVMgSURFTlRJRklF FYUJCLQLHI1MAt9TXPLRCb xwYXJccGFyfXtccnRmMVxz d6UdZ2LwJqDqSGvciwKpRY ZwWfqlmfxnZBIzJZT5xzZx DUFvYQcnAKVaXVmhYs7xiR RxfHxyXsJfGNZoo4vfhoVZ DYezSoBbH231OYMwZFygh3 bpl8JxIYYlkIDtg6M8NVIF doitdWn1q3mnQgZpLbR7tE SkFBizL2lcjtJxlGWoW5Tr vJYicIk5wDycN96by1C4Qu qoM9klGIJzGHJdC3JkXW3k YFWoBwh2PAL8BDG9JOTxLS YuY1SdOG5kQQGvkWLxADp1 z9chaPovZJWaKPC7r4laLR qjghP1OW6lkr8fgRc4y8lx czEgRGVmYXVsdCBQYXJhZ3 DkwHnnHa6lvVx6bIxoQjbg FJK1Ubv3TW3qys45gyr8cB evREPwqvweWnK2JRdwLOVz qkbvAFy9ZThlBBYaiYF9BE BgiXUoY1MwFTFkAC3hklm5 SFA5UXruIXUjOwS8OIWrhO HgIOPnhFakBOqha174EJL8 AvUqER8fD9Kjl8A8bE8wtX KuZUEbiRLtWsFzOWFcrw2q uJOnXLcvl8XqSKW1krK3gH SrrRVlHVPuLV07Fldae6Ci YnauMRW8IEQoseAon5Bog9 pvToDixsAfC7piU8AkRBOr RQRoRUGrNhPhnwNmk3Hzj8 XcsAYejXr3e9gmOCAqJDVu aWwkh9cxQBF2VVJkF2S6fC Peu8rtPFalXCRxiSM0emQ6 LWRqwMOsQ9KrvK7sCYGhVP 2prii1z0raUGM8BAqjRUHt XxQ2kmT5DUGryBEuUQAeaL pmIYyyl719ILM5OgNwQYSc n3IoR8ArfNrlT31mtBgjZ3 0sZYIugZfmzH2jlIwgbH0a ZjBcZnMyNFxxbFxwbGFpbl xmMVxmczIwXGxhbmcxMDMz XWteL3bbRhAaDYNhoYbxVU pxg5RrPTDfYYVzZktcvdEt XHBhciBJIGhhdmUgcGVyc2 9uYWxseSByZXZpZXdlZCBh sXthu3BmN3myGK4tF5QflY SzlxEhipThPIakQJLfg6w3 kFXrbIryv0OplEYoIR23zn ZvNRKlUAD5HVEzq1ebYK34 wgzpXjXodN97vbSdkzNyZQ Pjb4gqH1yckTYrk8Mcx6Lf lwDjEMveg7ChJO6iiGPfpw sikKA6DUTwlLJgpmPicmV1 tTxdKQFstB6mdW2gvTefnT 6yEuKjUhEoSGlpRC2vUXQn T8tgoKKkNGDjVOAwV6orKj GxzT4lhQhvJhcprrN5XTOw cn19 Clinical Information (test code = [id number]) Shivani Schuler is a 47 year old female with IDA1. Gastric polyp x 6 r/o adenoma2.Duodenal Bx, r/o Celiac disease 3. Gastric Bx r/o HPylori Gross Description (test code = [id number]) v6wruWWsRJIktOERETL7SY LhKU2gtKcnoAp0tFojVRVl ouU7vHYqTPysf0hnEOL5g3 rpoaIWKxszBZXsCJ6iJGah RAYgHP6kGsVmEDFtHhQnRC BhcGVydzEyMjQwXHBhcGVy qTF3DPHbLG3jatlsQBcvSG hfGHKxsfF8NTXwkXDwP7Na FYYlAP9zxnvhAPY1EUVSDx tmNo9pwWLheRumSqJrWuPk YXJzZXQwXGZuaWwgQXJpYW j1lI9ZXgrwGPJ7ISEBZyuz NsqimFpkb6AycCLsIRUhBI xcaWQgNTEwMDAgXFxkYiBP AyUfDhH3Kcd2FLN0IgC8TZ m7UVJXEJNqWyfoIBN2HhO5 SDk9FCJfON8kCLaacOEdNE zjMneqRAhhO245SYyaBVWt Q3KlV6SzQTskFuOeDQpbFD BkTSOtQPslZPPjR1ECEJXq OYX7RwOiCEPaROw3DMlxY2 FPQYEdLNZuCuP5JZOcDsI0 BNu9AGHZLw2gNHanHsPjKO o6VLB4YGk6PhTjYPAsXfEx GNPvBUCqIMkqmQEoWI6dmV hdWLDkBE9YYYSrPBrqFNPg YtEmC2EWD8iOVH1qDXmkhA JjaFxmczIyXHBhciANClxw SKPeCD5XWMSbALgzJXl9gi OtFCZcItMtLXNjG07ts8CR a8McZI0CUJy1zvWhaimujI 1lRPNzqhIfEUyPwTXrxC9l peVUKXexKQJvN2LvcnEaCK xxXCKbwo5jxWtwXEbuLnRo bGVkIHdpdGggdGhlIHBhdG jgzdYbO6G0wnOdVL3tUKUQ MDIvtG5zHONwSSUcc1WmuD OtgTbcZ8IvkWUhAjEht7j1 dTD5LYUnhcGvFVNobRLvED Trmq1xKAzxKjMfZ4U6YNGa QAXib09clII5hoWjAsNyzR q0rXYcWZJ7RC3fsJklchUj a5u6xZ0lLJOzo9X9IMAcu5 Q2VJTzjfHcpHMxdABxICTc SB8fscXtDE98ZZPuMCsrTN zhQOF4PMI0ORAsbQBou8pn vdqcUe5oTHwoJL7nANjxLS 41XPJuJNtpNBXdB0UxS6L9 QVfbXYNdWYOupXAhaI4rao JijeMeiTc7AAUtCQX1wOEy sXxsCOJwTesqdPU2GWOaZi PpbaLra8PgmOn4aDQgGHzy JWSjxV6rxR4yNAElRXKbex KBBgffWFRtSZxct5ZsBFyg cGljWHNhMzAgDQpcZXBpY0 4ln9BQr6Ejo8xjcYjxo9Ni hOZmGC7baSPoIK7Xu9puBI AlqRKlDVM3DPakv1ctRCja NEI8TTSfTpRyQAWoSB3CAs OrNAflELb9KOgjBRu6COg0 MX3OGlIePEVhFzu9UkG1Ig ClTAc7SCnrYI4YIKD4PBEn GSNmEPkhGTK6TQHuPVa0LB IgXFxzcyAzIFxcZmwgXFxu D44jwGNrKAxdYtKjCMyyeJ nzGTSmCKL6LF8TNTDjXuLs O7MIF7kZWP6gBfbmwoXgZF WlqiCOIwipBIMmUY2ZCHOh DZrfQQx5ppQkLCBfCbKxQD YeR87bf7DRf6GjVR7RCBf3 egGtadawmH2gXPBeftUgh3 IzMFxlcGljWHNiMzAgDQpT mECzeP7snsIPBKffGGHeZ1 TextZySOkmCEZpju5nuAum IGxhYmVsbGVkIHdpdGggdG zdFCOewLznlzGnH3N9yrUf DT0rGAPFTJIagQ5hAOFbSQ ZpNGJwCRRarS7pVJB4a9Ts slGpUFMVXKHxfQqrOU17cD BjZWxpYWMgZGlzZWFzZSBh onUcsxTbu19jmrNww0UxPI 0kzEevEWgGDQgbNxEjEH8i JSEelfAst8NvGP6lOKXvaI SoNCFmbiafjYZuSOj0bKWx DMCpSxSmzGobb0WjOUIeXB wpNJ15haBcPZ1rLYxoUI2b EXwqXC8cPCPcYFFuOPAlYh DhoOIuIdDbgVRvLhZfX35a NnKJiREku2VoT1alZC6ngN GaQkwjhZWbHPMvjDmyv4Sk nCCkFKCzv4YdfJMiJAaqFZ 0pPHO1Ch1pvLDhEYJlxzQ2 o3GeJZibJQYpNngkHYTvME bnw3FsNGRboKWJu2GhAF0A XHBhciANClxzYTMwXGVwaW AJp5PsKOIQJpuquMmpEyPj kYDyTmU2PVKtlFFeFGL5GD 7qtKwoFORqJXv9DWxhQISi G6KlV1ZpLHvyWnXpDLytOI HwUKTcQLvlQNRdE2HTPIHx DKY2VjIcJQExXUl8GCokW5 VUQHUwBGLjCqI5LGN0HjL8 WFi1UBPCIp9dGZwoMhVkDA OmYcQ0SEb7UkMeSIRmAvPt CAOvXGUfFFcahFRvUP5koT lhJVAiFUDyAIE3PIBhwAIN t2AkHMOsNKmiNlAeVFGGNC MULB8XTbWHUYUnNuCdlUJx XO8VLOWnjtVeBGnbzSoavR 8mzDZiU3bbOmRaCzysqKdg TmVzdERvYzEgDQpcbHRycG FyXGxpbjBccmluMFxzYjMw GGWuyMJHb2BjIMMSUuHlAD NpbWVuIEMgaXMgcmVjZWl2 BWZmuC8nQn1meFJwtR4xsO ZhFBulFVHeo8t5hSS7cTNp jMI8nMXzlWqdJsFgCN0vpK OqLLGGCH68mUGrchPdGEFy dX9qWPAqSOSnHML6veydYR FOTYQ3rXJod3H6BIksRWC7 bS5nxMhbZeYkX9V9XDKvWJ Upb97nmNK8xyEhHmReAQUq vb5abT4rUEsocbZzoZmvqg Siv3R7MFUkd2H2LPBgszXr bQYdxQHlMVXmFmB0ZSVxQn P3LVIkANMsfOYrSUXvIO7h VGhlIHNwZWNpbWVuIGlzIG BppTQeguFnBZAlnl46Y4cb RBExcK5er6ljVyQqSQLnEH FlrCBbqFX9ZVZwdS6jzS70 cmMeocSZAR9ziUStJB9YPP NiMFxlcGljWHNiMCANClxw ZKWsNUafe3YpLVeiuEvcTY DdYeLoBNkJqVtmMBXZG6vz lIAtHMlaQNLBVPnUT0FBUA 6EXEVytSNKCHF3EN4vIVet KWAyM5MbX7QlwlT0a7pitK opj5HwzXGuRA5okSXxJZ3D XHBhcmQgDQp9 Disclaimer (test code = [id number]) q7amoBPkHTPrl4lkLLHngK FuZzEwMzNcZnRuYmpcdWMx RFiibtDlNGnmc6ZtR5ImEu AwMFxhbnNpXGRlZmxhbmcx WJNsRFR5boCqDJQhEYgdWO AqTIspWl3kdVKeaPjkAeAd JYGmv3zyhfXDRPjaHeQzI0 30LLGiGFbhp0wgw9IhAMQy rMSde0V3WLIYsuvxbGl4hN loZ14yn9Q0VyfsG5rjZJJp UMIaD4YpXQ9vRHWaNbq8QI O9RLL8NWZgNAMrX1RaGH8v ESBquUYkBPh7m7tlpXvzPY ApRYU9x8tfKZsmxfCpYM4m ts3gvFw5e2bmhvOjCWWgFA ZsqBTRJYHiG9AsaImoTb1m xJe0vAgjXlcpSSX0Rwo3WH 4zhm22suy4rJxdWHVghxjx VtX7ZMstESLayaubNCg9NX kmDFHqtUZ9ELDsgJNiS7Pf NOIvUR8ezee0OWP7SSwrDF MjMvC3TVMzwHIuZVOtmTlw ZAzhw213GYQ7ReEqZK2nZ9 Kqq1H3sO5pdOZpTQIisATo CwHaBJMyam5xcZMaVYnrv8 HmPEY6kkT4kFSlmQFcRQCw RO89Ylelp9SuXneil4VgQ6 9jtHF1OEjly0lrHF2eMfR9 icBzCRzwz9rlmA4eRkB0CX xuZU8eHZ2qRXFeaF9opjuh XHBnYnJkcmhlYWRccGdicm XlGy4eeUwbYAH8BRmxZ8zf yG6uOaG0FJwfO7qxnP9xGI o2XXqjzJM4UGHfaM7rHC6f pulpa6grSTqrMFcuRJKdvk Y6jcI2WKLwmYJfB1BosR7k LKKhPH4ugkncf3peSDN0GG nkLEGaCZX4XeEcRZQay5Xn xau7CxNax6XhfRPqSCquP9 2sf138ZXKmckHvC5yshRGb culhoOZkrfvmGMainjU2JM ZhrkMfr9LbBKAxOLC0TWos JGitdRQtCJBrwQlsm8dhV1 RscGFyXHBsYWluXGYxXGZz MjBcbGFuZzEwMzNcaGljaF giZPveThSjOYMlVCmjU9vs PvKlZ8RvOJFnBfAljMMcG0 ggVGhpcyByZXBvcnQgbWF5 FIpiR2d6KIWbdmRojOu6js WlPyGfPXVgVFO5AIujuDGf GDIjo7IwirslbFLpUg7ynF KpKWSokB1oRCPiFRZfHPcu JW0anNj1EBJYpRGeiKGeCl ORDQYwYB46eyEiNCOCfzol y7Q5WBsuMVFok2MmtIVsE3 lgq3HcUQGgj58pGZ6to0R8 p3zmJKA4FD6ee9KlJNLuhM DqbAVhRSMwy2Aeamvqo5Mc TEXkvbVxq7PeEYVuspKlqD GrPEEwdwLncl7spzLfQPWi VWVgR6HtoflicAlaazFeTR Tzux0gdkIiLNS8BMAGDFPh XXMyq7MryF4fmJOWUGB5cC Vxfv9eerKDoHUbQGGvji02 KSJmCL9yC5ouFZJbDUSiwn IkpDMrm0NqCWUpwCE1hKEc YV0UIfPRg47pTBKzGZSUuk PzRMNjiFytlBE6yvX5fV1x IChGREEpLlx+IFRoZSBGRE CoNJ7kgoXtr1PepwXqxShs DNZzcKPjr8GeiERbm1SttE qnw2IzcKIxfAOhRD8yNEHz clxwYXIgVVRNQiBMYWJvcm P5v8UeOHDxJMBfWTR4rQbn cxv1OOZirH9bCOAoP9bovx yhAQnhFOTfb8RokJ7fwDDB oGLtw0JfuPSwmCOWiDAoHB 3vahPyKVfFRYuNZYT5koFz UGQln9TrKXatX8dzJ04fbX zzoMp2eOF4WCW7nY9bMfx+ IFxwYXJccGFyIEFwcHJvcH ErAWRpoGblesFjT5WulqFy zM3ksLJtsrHvLS6hLF8rD4 O7bOUcSQNcjnXdj5tbSDwv dmUgYmVlbiByZXZpZXdlZC Ree3UqDUzvCIN5YMvzapZg bmNsdWRpbmcgSCZFLCBTcG DdbMIxMZP0JMyrdxPxvbOu ZU9lvE7ajBgmvC0ooXEiqM O1gokyULJcYTBurVirFHLb ZU1tlPbasQ3fPtNzFlXjCS txWZ5aXDTdQ2qjoZYjYDIm HNQfD2xaXbIctS1qyEvmZB xjZjJcZnMyMFxwYXJccGFy XHBsYWluXGYxXGZzMjBcbG FuZzEwMzNcaGljaFxmMVxk VsBcJZDpLDulU0poWzRkX8 LmSDGvXmBfkOHkY7spIUzc YAX4XFOlPG9enYSlDZ30mJ Dld1xyLMtneIpkqz3mG23e lFZrOEltiOtoVASsg30vy3 FlCHCvwvSbyg3jEPBfdnA6 jY4xWJDdcKbeUSHvnDKiJY Phl0DwQSwehFDriaWlSEln HDKnMYQhtQIvaaX2stPcpv UmtvVuTFNcuRkeDJSaq7Ng SSYyKJnec8Savz2huHEjVV EsoqYBlLehrSWvuN0dE6Cx POTtSENfsa5oVZSgwS3qXW fvz0JevacxZQXvDKXdVCDz zjFern3dWAXgnEYDNP5YCI bsoLQmo4NlvdRnO3uCYWQ0 NUQwNjYwMjgxKSBleGNlcH YoSXFxzt99QEUbnT8swKym GRYzjZ5pgZ4fvKdalS7cTh CiFkKnDBswNI6nZSJkA1wk nKVeARRmEITgF0gvUjPbkZ 9jaFxmMVxjZjJcZnMyMFxw YXJ9fQ== Embedded Images (test code = [id number]) [facility] [id number] 19:23:05* Test Item Value Reference Range Interpretation Comme nts Case Report (test code = 4639195017) Surgical Pathology ?Case: [id number] ? Authorizing Provider: ?Dominic Keita MD ? [...] HPylori ? Final Diagnosis (test code = [id number]) x7hmsFOrTGWsd9ziEEKihR FuZzEwMzNcZnRuYmpcdWMx XNrzcfQpPAevmFiuQFX5UA XvXZ0epVexoFc9fUogNACv bdM6fQPsNGxon9oyXJA0s0 vvfcygEVHjLSjkRq4tdPEl sGepAxYmUDEhISb7pI26QN ZrmH6vzNSlHXx6YFGpgUCf paGkTlAcBGIdsWRoxLS1JJ HdLB7otcbxQVhaVZtqTAGz spK7TGVawZWlT7JvFHIkWB 9rifbrNAY7LQulGBTqCBA3 DlAkMEOne6Zvqke1CsKepR FyZFxwbGFpblxmczIwXHBh xdOTLbXYLN6MGUIUWFPTY9 iTRBTDEE0ZWRJLPnkktEWj OUTzOGJpXCBANR2TXHSmH0 nXGkZqWJ6KVKLzMRXdmTNw CHZivyIJJuJMZH1SZS0TAJ wgQklPUFNZOlxwYXIgICAg BPExVNcCH6CNFBKsJGWHO1 UJKNmFHYklFq8wOUJJNJ9G B3nPG5BAXPICYY8CUUmpIL FrVOBkYWWwBF3SGCyxNHPS AQ6BMXPXQCUHWTcQMCKMXF PAKYpARZYMF5OOVIlRVIWy oisjTMYzAy6wE3DQVRTZSA wgQklPUFNZOlxwYXIgICAg GZZlYTKYL8YVCzCULP8OT1 2AYSGCSUZDUR6SOLMZPLeL ZH1WYJIBMRQEYXCIR4NciH FyICAgICAgLSBOTyBFVklE ZT5QRBERUpANYCiAOCRuSK lTRUFTRVxwYXIgICAgICAt UE1PBGtuLZDADA7MRWQPPc dBTklTTVMgSURFTlRJRklF ESPNYEWLHC2ISs3VONJOQl xwYXJccGFyfXtccnRmMVxz f7XvJ0NgWkZsBDihjaRmAC SfCewgohfyVXRuOTP2poUe CYBpUObmBNDiRBgtTz1nmK AasFlxCkZjTMNts0cmczEC NEsuRhQaL283FANoARztt0 niy7LiXJGvyNBnl3Z2PXPL hhkerSw7k2dlXmXwZaX7gE HeHCspL4ftuwHhdODtN1Fz oDXypDv1jGuwP75eh8Z0Vh cxZ5reMJTbDELmK3ByZA1m IOTcVdn8MTO8HFU2CHJtUQ JqG0TcDA7tESOeqGGjGRx3 m3nvoMhxUQWcNIJ6f0ckRC qycwS7MR7fqe2csOn3j1gv czEgRGVmYXVsdCBQYXJhZ3 QngSxtTq2uyDp5pNddLolv NQT0Hkg6ZM3vhs16yma0yU vzDFPtednwMlZ8FOiaMUNj qkqdVYq6TPoyZTEkuLV9CH UdoACrI4TjPZUgRM1golz2 WMR6UBbmXEXxCrG1ZBCeuF RfDPAdjVjqGVavq714DDR2 QkSfWZ0uF3Osk6L7nV9ncD AsQMPvaJSbPgIvMJYdbq8r dAKwOQxrp3KsJDD1rtD5sS WwyZJjRUTwTF52Igjrl8Kb RndwUNQ5BYExqxVof6Esk2 pnErUqnpRvW9wwU1PbWWMd FTPaDSFqUzCoaeSkh2Ggd6 PirZDzvXz7l2ruTLXsEIIl xEymw9caABI6ABRpT2B8sX Sef1goYKucSRTxbKL0jjT3 VAHzvTQkT1DflT4oFZLnZA 3qatf2m0zxBGM8AUvaKEGa AkI3wpT1ZPWalHRoRMCfjR mvKUanh190TVZ4MmPnLQKz e2QvJ3MkfLynZ43rfJcuY7 8nRRLcqMkilT6gtSadtH1k ZjBcZnMyNFxxbFxwbGFpbl xmMVxmczIwXGxhbmcxMDMz ZRlnY2toFeJsAILyjEtoFR lgj0IhXOAuFYNnTyrmagNa XHBhciBJIGhhdmUgcGVyc2 9uYWxseSByZXZpZXdlZCBh iUprn1CtK0hyCR1lM6LlkH TmxzYphpSoZBydHYXry7o2 aJXlqTrbi3JqjYZkPJ79xq ArVGRfCQF1EUHfu8jlSY83 lenjSqOfiI43cqBssvEnBO Rev7mjQ0rgjBIow1Brg5Zl qiPiOQmey2QwSF4szNBvbe wtqEI6FYWueXJeuuPxcxL0 cLapLVSriN2ocE8gdUmqzE 8gVcMkWqUlXRqhZE3eUUSv X4moqDPdLUWdSOKfV9mjLf QmbR3kjGakChfmiyJ0YNCa cn19 Clinical Information (test code = [id number]) Shivani Schuler is a 47 year old female with IDA1. Gastric polyp x 6 r/o adenoma2.Duodenal Bx, r/o Celiac disease 3. Gastric Bx r/o HPylori Gross Description (test code = 1705691258) j3adhFQpDFKmiXTQILC3CP PcNL6qmQnaiSq8eBqqOJSc qrN2dOSnQUqec4rxEDC0l1 zuerXDZgnpRVAdZT7uJLcn AYZqIQ2aItKePEAdOpLgNC BhcGVydzEyMjQwXHBhcGVy iCZ7HUJqSQ9njdibZDweTL ujNNNjwaC9XCSgvUAwB2Yf EHXiTO6bkpbpJDN7SWOYSz chVs6doUDizLqoJdNxAsVl YXJzZXQwXGZuaWwgQXJpYW f3iJ2DXxejZAT3CDQIAsac BbzyoMqtp6CucIEyKZZkLT xcaWQgNTEwMDAgXFxkYiBP QqNdGiI4Una1TUS4MlB2CO i2UITTDHGjSoypCSL6CiX8 ECy4LJLtJX6lPFbqsABsSY fmVdtaCTziB747QUfuABIs C1BwG5ZbBQcqYqEnTMngRI PxEAToHMejDQIuS2NNPQPu LFI6ZiJeNTWyJCe2VPwpX2 TACWGqIZUdCmD2CHFkXeJ6 TUx2RPJBFt5iLRlvUpNwPL h8QHV0VNv0NpJrVOBuLjQx FTOoVJRkVKdpcJQfWR7xoX ywWAHpEH1UCHAgAFugVDCh YeBlD9KKH9lNMF0xWDhbwU JjaFxmczIyXHBhciANClxw WMJcQL9OASEvAJqaAOq2fz SbNGGbGgMkEVBvJ08am7OZ g7VwZN6XLDw3tuJaaswlnL 0qUWUbqoGlDHaNvVTycP4z sdQTIZieYLBrQ9DpuqXiDU aqGJFhvs9plJaqQUcjHhNo bGVkIHdpdGggdGhlIHBhdG pwzqAdW1Q5mmAgIL9cNFYY ZPQduJ2qHBCiGMWwp2PtxB JlwHgdO7ArtTGjVrVvr4f8 hHI2IGCzfdMcXSPwnXHnFT Ffml9uJAwdOeZvB9Y8TAAv VJTqn88ikKO5ykTqAsBowC d7qQEjIZO5GY4bfWmfzbOy j7w6eQ3pKLXhu0Y5EPRvq0 E4CMAdsvIbfUFcvBZxGUVn MB9rimRdWI30NDCeVCanMG ynMES1CET4FTWbiIJpa1fh gdecCp0eKWmfWR1rZJirBT 47PDRgBZdqJLPyQ0AdG6O1 ETedEJDcWYUdnTHyiM4dej FypcKrhUv8VYLcGFS1lCHf xMaaLKEpUrpklEU5ETHqIo LkjbDjt1SqbHy9nKQzTFtg OBKvcR1opS4tTLEpPJYcpn ODDlmlMTHqGAdts0GyCRuv cGljWHNhMzAgDQpcZXBpY0 6jx5VEc9Cty2iwoCcij3Vt rMYbAV4clSRsIM4Bw0beGJ SjgNPeWRO3OLyrt9qvXEpm FJN6TDUwCcBwKXBgRV8HXa DyFKjoWUz3PQdrIFt7POd5 MC7OKpLiAXUpWkk8CqC5Xj IgYIa9OWqiRQ7JZKP3BEHi WPHhPQluHSE5KUJnHIk9PO IgXFxzcyAzIFxcZmwgXFxu Z63dyVVdSZgpFzGvXQlajP qpBVEnEQJ7YC6NQMOeWdMq J7VST1pLJN9uAixwmhEjCL TsbeKLVoucEVAmAI8HWGIm WNadIBn6ipDnUJPbCgMnLF NjW91zx8EBn2CrQM8MUWi5 ofNshvogtD9mZAHkquZgx6 IzMFxlcGljWHNiMzAgDQpT vWXyjO1hjcWKFIbpKCZjU4 YqvlTkYCrnNAXbqh3jwRlk IGxhYmVsbGVkIHdpdGggdG ljTJTacTnlqfVbA5F4qvGm RN5wAKCPXJIplY4sNHBeBO CrEVQgWQYhsP8uLUT7j0Vs ghQdWOHEBUOscNtwNW78bC BjZWxpYWMgZGlzZWFzZSBh smMcriVmt04kybQdf8BqEF 1bnMxqWXlJLBnaPuUhZK4w TITwzfMyd0YyEZ8yESSgfS SwPAAhnnatsQOwNTh6uATf DINpXsOhmWaok2NwQLDhYR hpSC48geMqKN3hMKeoSX3c FMpkXA5cKVEpIZNiSOGxXi NseDRuZfWfkUCbWpRaX93e ZjXPtETex8OwA5odKY6mxR BgHfysxFQpSMGgtOqka3Jg yOYpFWGlc6HjgFFpBPiqDM 7lOQK9Qn4rwMRqJGKfbtF7 e0OvNBteKMIkDahtGRItFD rbr4BaAMFtvTUPr7XmQO1N XHBhciANClxzYTMwXGVwaW AOm2VyJRPKWphtcNkcMdMy uXGnAfY9EUZgaEOxCPI6XK 6giQkiVYPfNAv2FXdkIYMa W0DnE6NcQLcuXdErQHbqEJ OvAYYdYNtbMSDvO1BVUCPi YZI7HuIlAFFbYRu6AVnkK8 JNDYBcJFNnMcD8XWW8YjT2 EHc6TSEMCs7zMScxDsYmAX ZwKkN4WIw1MsFtVWYvNlXt LUPdLNLcLHtrzSRpWR6hbW pmDQDkPGSbUCL5ANXhiQEQ o1QcOBWcRXfbTmDlDVTTKK FSYU2HAqLTDWFyYnMmkPUy DQ2QBDVvftOpUVyecKookV 5hzKVwQ2edMmHcZxjbiUgq TmVzdERvYzEgDQpcbHRycG FyXGxpbjBccmluMFxzYjMw GFSdfJINf4MoBZESHaLqLJ NpbWVuIEMgaXMgcmVjZWl2 AWOksH6oNk5baHBjuT0htV CgYCzkEPIwg5m9kTZ8dKMo iGS3dRLawEcfQoDsHZ6woX KmCJBJRX49rLVdxoLbSLMn sO7pLRMeHUOfBHH7qjisWM KFHCL7tMCiw2U9NVteAVN4 vP6boQvfXaQxR7E1YYQeHW Tvd26myFU4xsFeFfUqZVMd ed8jkL3yMDmzxuUryWrhrh Bxh9J1HMNxk7N9RCFjpxQu rHPaeZPgPNKuMpA9UIUlFq I9ZMMlIEAepVQmJFDoFN7x VGhlIHNwZWNpbWVuIGlzIG KnbEVeobVeKCEtdw84Z9xw GMDxeQ1ey4yiDnZpTYCuND BixAJcyFA6LJYdmY8zgN69 ccVaapKMGI6mmRCzVE5DCE NiMFxlcGljWHNiMCANClxw TBJcAAwfb4TsEZurlBclBA CwNlEqUVwRmPpmBFSOT4ad hBIxWBhjFLYOVSvWH6LLLA 2UFKZxaCASDHZ3TO2oUIyu KHDtT4WeF5ZukzU1s8divA mpk7HjhGPvYY6okSWuRH7I XHBhcmQgDQp9 Disclaimer (test code = [id number]) z2xnlJKzPJVsj4dnIAWvjN FuZzEwMzNcZnRuYmpcdWMx YZlzvyHlALobv1KfQ1PdNj AwMFxhbnNpXGRlZmxhbmcx ZLAbZIW8ulCtAQMkNApxEL XjVYcyTa2xoSTgnLwkLnNu RTCmz5wwgxCYWCfzBkNuP9 80PMAsOFzat5cub7LsJMTz cBNri3M1JZYUyzkatPr6uJ rfZ27jl9X8QpecP1kdTMJb JPBzT9XwZH1fPMDpTzw8ZM B5QIY5KTOpKPGpG2KiHL8t CQZwlBAjPBw6k6kszEuyDG LfWUT9m0unFTskdlQeHL2r dc5mvIi0z6dytmDiNCChAJ PvtTKEFGTiH4UysByyTy6n mHv0iQqcAqusXZJ1Lfv2AV 0oat34kaj2lZdiDLVcsskv AxH1WOpvRIQletctMJg4TW dvDGTibIG6JGDtvYSbQ5Ye YEIlOB0owgy6GWS2LGmjMJ EqSaY4YXXlyZVrADNrlXwn DBhcb878RZM9TsVsEF2pJ3 Oyx6H8yL0iuTUyCLWyuMPy ChCvJKCpho6chUPqNYbgo9 TuDDR1yyE1mYAznCRbMRYh WP80Bnnsu1QlWiaxi1HaV8 9taKM5CXwtg7njNV2qXjY4 dbLlRAsqy1sbyB3fLeK2YO fgPV1qJJ9xTWUfiG4qlkds XHBnYnJkcmhlYWRccGdicm KxIg3knPjfOXA1HFteW3wk gR6lFkS7ADmsJ2pfcT3sMT e1ESvesIK3RVRkuO1rEJ5u oryxq7fqCJdkTJudZXEyxz Z5rgG9KNTvqVWhY6HvkG2a MCUqQX4guxksv7fjAQQ2ST buJZOsILF5CpWfFNLta1Mu aiu2QfMaq9IfmXXzLGnhF8 0xw651WTUzcyGlC8xrpIXy favgsYVbmozkCTtsrgB1HZ YtsfPdw2QeGPEbFCD3CGmp IFvvrMMdMDIkmBgjp9fpB3 RscGFyXHBsYWluXGYxXGZz MjBcbGFuZzEwMzNcaGljaF cuHIgoNsUzKVVxWKrwW4cj TfBbF9SxZUBjHiRdoDFkN3 ggVGhpcyByZXBvcnQgbWF5 AYthF3c0CPPmnhMqxNw6hn TbQvJsKAKaSSH2OOtdyLPg PUFkd6CfoaqwcPRmDh8swR HgXOXroC2aVLUxQPSlFHjt SC1uqJw3GJJEpWSuaUEsJf BXZCKeUT41mdElTITAxmxf k7N4MKpiNXCkk9AbmSOyY2 byp4DjDIEov27tTM6lz2U7 p7evVSD3QA6ab2BmRSMsrT ExcKNxEVAlv9Ouaytxu5Eo BQZnykCqr3ZhTGRzthCgmS VtTLZlqtSjsa4ojcAjNCOi XTOaB4XdkolzxVgrccLqKA Kgrz1byuRsKOC8HOLIWPVr PPKqm1DvfQ6wkLTQXYS9tM Fdim2hicQKdIJsLIDgec74 EKNfAE3oH7oaEIBlXACtwh OxqXPji9PiQRDduWZ9kAIt GK5UHfFXh60dPMEmHCCLsg PmAJVdiBgmqYK8yzO5zK9b IChGREEpLlx+IFRoZSBGRE XaGA6mmnFeo8TsgaFykHen LZZjkMQcc6GfxFKit5HrlB dha8QtsEJiwCBcPJ7aFROv clxwYXIgVVRNQiBMYWJvcm F5f8OkDVJyHKXsWWN4pPql ytw7FDYbnQ5tOBLbD2wfns czMMckBGNxc1FpuI3ziTJG iDTdl2ChwCQvqDOXvVErGX 9eqkSeMHgPZReZRMO1tzHh NLJag0OaGVcsW2ciO33jhE sgnRi7tCA5SQA5qA4gBgj+ IFxwYXJccGFyIEFwcHJvcH RfTFVckBjjttDdW2JytrXc aJ5evXLibtYpOE2kVO9qU9 R7cHVkGUNioyDun7nmOSrg dmUgYmVlbiByZXZpZXdlZC Dhd1SlVEtmUCN3LBfvfwBs bmNsdWRpbmcgSCZFLCBTcG UvyAHqFSH2GZavprRkhaFp AU4vgQ2evXrllI2oePPjtI W9dujtVPMqUIKmdEtgSBWb FA7ojYbebB2yCxYcBdNrCU zpVW7fYPZaQ0unbHDdSTIa IWIbE3oiGfDxqP3khGuiFV xjZjJcZnMyMFxwYXJccGFy XHBsYWluXGYxXGZzMjBcbG FuZzEwMzNcaGljaFxmMVxk PkEnMOTaSBgrR3jfLfGnL2 WeEWSvOwDhbLHgZ7hxVQqh SLH8AYCeCL7ycOOrZR59vU Lnh1sbEBbmjKsirw5oC49z aWZgBQyqmPyeZBTms52ig8 IoFZPckeWcsa5pCASmwhJ1 vM3vLFLvgIvgKSNwqPOiAT Vrd8XzNDyilLQectHoLZiv XIDtGQRteUFbcoN4vyBkhi PdkqRiHOFfuUcfHRCpt9Cy TXSaUXvxu6Mqcm2mpLHqRP CgphRYkCkcfZQjtU2jV3Xm VWTeWMPanj0wFQDryQ6wMR orp6GbbgktTZIcORFvMIFh igLodh6qHGDzkDFEJX7UOB kooVCsb2HojeQhV4yHUUA1 NUQwNjYwMjgxKSBleGNlcH AtFOKofb39AMTfqA2wyPht SYVgnM6crL8xwKnzsJ8gAl MbQmXcBGisKL9zBWDaQ3bv gDLoAUJoZKYjW5cnMaFmiG 9jaFxmMVxjZjJcZnMyMFxw YXJ9fQ== Embedded Images (test code = 6759699604) [facility]. METABOLIC PANEL ([id number])2022-11-03 17:25:32* Test Item Value Reference Range Interpretation Comme nts NA (test code = 8291928905) 139 mmol/L 135-145 K (test code = 6647138209) 4.2 mmol/L 3.5-5.0 CL (test code = 1901830890) 105 mmol/L 98-108 CO2 TOTAL (test code = 6372841518) 26 mmol/L 23-31 AGAP (test code = 4565442825) 8 2-16 BUN (test code = 9879778767) 9 mg/dL 7-23 GLUCOSE (test code = 4311265787) 93 mg/dL 70-110 CREATININE (test code = 4101876695) 0.60 mg/dL 0.50-1.04 TOTAL BILI (test code = 5140162212) 0.2 mg/dL 0.1-1.1 CALCIUM (test code = 9064023890) 9.2 mg/dL 8.6-10.6 T PROTEIN (test code = 8518208583) 7.0 g/dL 6.3-8.2 ALBUMIN (test code = 5536555219) 4.2 g/dL 3.5-5.0 ALK PHOS (test code = 0511787339) 118 U/L 34-122 ALTv (test code = 1742-6) 34 U/L 5-35 AST(SGOT) (test code = 0273901203) 34 U/L 13-40 eGFR (test code = 2977192259) 108.1 mL/min/1.73m2 ZAINAB (test code = ZAINAB) [...] or urine or abnormalities in imaging tests). [facility] METABOLIC PANEL ([id number])2022-11-03 17:25:32* Test Item Value Reference Range Interpretation Comme nts NA (test code = 7577463721) 139 mmol/L 135-145 K (test code = 6231790867) 4.2 mmol/L 3.5-5.0 CL (test code = 9417123100) 105 mmol/L 98-108 CO2 TOTAL (test code = 2060346887) 26 mmol/L 23-31 AGAP (test code = 7988683013) 8 2-16 BUN (test code = 4450227539) 9 mg/dL 7-23 GLUCOSE (test code = 1570470533) 93 mg/dL 70-110 CREATININE (test code = 4312614268) 0.60 mg/dL 0.50-1.04 TOTAL BILI (test code = 9147008911) 0.2 mg/dL 0.1-1.1 CALCIUM (test code = 8200640418) 9.2 mg/dL 8.6-10.6 T PROTEIN (test code = 5538343817) 7.0 g/dL 6.3-8.2 ALBUMIN (test code = 2149478207) 4.2 g/dL 3.5-5.0 ALK PHOS (test code = 8552362196) 118 U/L 34-122 ALTv (test code = 1742-6) 34 U/L 5-35 AST(SGOT) (test code = 6951439610) 34 U/L 13-40 eGFR (test code = 1851526473) 108.1 mL/min/1.73m2 ZAINAB (test code = ZAINAB) [...] or urine or abnormalities in imaging tests). [facility] METABOLIC PANEL ([id number])2022-11-03 17:25:32* Test Item Value Reference Range Interpretation Comme nts NA (test code = 7892150584) 139 mmol/L 135-145 K (test code = 5752802836) 4.2 mmol/L 3.5-5.0 CL (test code = 3522008646) 105 mmol/L 98-108 CO2 TOTAL (test code = 2093562447) 26 mmol/L 23-31 AGAP (test code = 1045884744) 8 2-16 BUN (test code = 1402578305) 9 mg/dL 7-23 GLUCOSE (test code = 3763845944) 93 mg/dL 70-110 CREATININE (test code = 8837442820) 0.60 mg/dL 0.50-1.04 TOTAL BILI (test code = 9531036454) 0.2 mg/dL 0.1-1.1 CALCIUM (test code = 6098978782) 9.2 mg/dL 8.6-10.6 T PROTEIN (test code = 6961752233) 7.0 g/dL 6.3-8.2 ALBUMIN (test code = 9998850636) 4.2 g/dL 3.5-5.0 ALK PHOS (test code = 8193359621) 118 U/L 34-122 ALTv (test code = 1742-6) 34 U/L 5-35 AST(SGOT) (test code = 1119482749) 34 U/L 13-40 eGFR (test code = 0218694844) 108.1 mL/min/1.73m2 ZAINAB (test code = ZAINAB) [...] or urine or abnormalities in imaging tests). [facility]. METABOLIC PANEL ([id number])2022-11-03 17:25:32* Test Item Value Reference Range Interpretation Comme nts NA (test code = 8007108963) 139 mmol/L 135-145 K (test code = 8659537941) 4.2 mmol/L 3.5-5.0 CL (test code = 4954075332) 105 mmol/L 98-108 CO2 TOTAL (test code = 6919237140) 26 mmol/L 23-31 AGAP (test code = 5360067478) 8 2-16 BUN (test code = 3259377425) 9 mg/dL 7-23 GLUCOSE (test code = 6959676781) 93 mg/dL 70-110 CREATININE (test code = 2652680307) 0.60 mg/dL 0.50-1.04 TOTAL BILI (test code = 3719713738) 0.2 mg/dL 0.1-1.1 CALCIUM (test code = 1355608714) 9.2 mg/dL 8.6-10.6 T PROTEIN (test code = 5722428164) 7.0 g/dL 6.3-8.2 ALBUMIN (test code = 6888257992) 4.2 g/dL 3.5-5.0 ALK PHOS (test code = 8593744272) 118 U/L 34-122 ALTv (test code = 1742-6) 34 U/L 5-35 AST(SGOT) (test code = 8988608476) 34 U/L 13-40 eGFR (test code = 8661927465) 108.1 mL/min/1.73m2 ZAINAB (test code = ZAINAB) [...] or urine or abnormalities in imaging tests). [facility]. METABOLIC PANEL ([id number])2022-11-03 17:25:32* Test Item Value Reference Range Interpretation Comme nts NA (test code = 2266321478) 139 mmol/L 135-145 K (test code = 5691435745) 4.2 mmol/L 3.5-5.0 CL (test code = 6541008235) 105 mmol/L 98-108 CO2 TOTAL (test code = 1717737973) 26 mmol/L 23-31 AGAP (test code = 7834977074) 8 2-16 BUN (test code = 2019402359) 9 mg/dL 7-23 GLUCOSE (test code = 7870287548) 93 mg/dL 70-110 CREATININE (test code = 1868097104) 0.60 mg/dL 0.50-1.04 TOTAL BILI (test code = 7023396340) 0.2 mg/dL 0.1-1.1 CALCIUM (test code = 4209342041) 9.2 mg/dL 8.6-10.6 T PROTEIN (test code = 4322612445) 7.0 g/dL 6.3-8.2 ALBUMIN (test code = 4531221644) 4.2 g/dL 3.5-5.0 ALK PHOS (test code = 8381771681) 118 U/L 34-122 ALTv (test code = 1742-6) 34 U/L 5-35 AST(SGOT) (test code = 1354853982) 34 U/L 13-40 eGFR (test code = 1671120303) 108.1 mL/min/1.73m2 ZAINAB (test code = ZAINAB) [...] or urine or abnormalities in imaging tests). [facility]. METABOLIC PANEL ([id number])2022-11-03 17:25:32* Test Item Value Reference Range Interpretation Comme nts NA (test code = 6590510986) 139 mmol/L 135-145 K (test code = 3399303394) 4.2 mmol/L 3.5-5.0 CL (test code = 9054437285) 105 mmol/L 98-108 CO2 TOTAL (test code = 2900274401) 26 mmol/L 23-31 AGAP (test code = 7752690004) 8 2-16 BUN (test code = 8962841461) 9 mg/dL 7-23 GLUCOSE (test code = 0666786626) 93 mg/dL 70-110 CREATININE (test code = 6900953941) 0.60 mg/dL 0.50-1.04 TOTAL BILI (test code = 9010925325) 0.2 mg/dL 0.1-1.1 CALCIUM (test code = 8983253268) 9.2 mg/dL 8.6-10.6 T PROTEIN (test code = 8783461485) 7.0 g/dL 6.3-8.2 ALBUMIN (test code = 8713064760) 4.2 g/dL 3.5-5.0 ALK PHOS (test code = 7713206381) 118 U/L 34-122 ALTv (test code = 1742-6) 34 U/L 5-35 AST(SGOT) (test code = 6661691634) 34 U/L 13-40 eGFR (test code = 5499009852) 108.1 mL/min/1.73m2 ZAINAB (test code = ZAINAB) [...] or urine or abnormalities in imaging tests). [facility]. METABOLIC PANEL ([id number])2022-11-03 17:25:32* Test Item Value Reference Range Interpretation Comme nts NA (test code = 2692850231) 139 mmol/L 135-145 K (test code = 7868875270) 4.2 mmol/L 3.5-5.0 CL (test code = 1778994643) 105 mmol/L 98-108 CO2 TOTAL (test code = 9690959911) 26 mmol/L 23-31 AGAP (test code = 0464690650) 8 2-16 BUN (test code = 1515906944) 9 mg/dL 7-23 GLUCOSE (test code = 5275566542) 93 mg/dL 70-110 CREATININE (test code = 0857687476) 0.60 mg/dL 0.50-1.04 TOTAL BILI (test code = 4746114844) 0.2 mg/dL 0.1-1.1 CALCIUM (test code = 5958528617) 9.2 mg/dL 8.6-10.6 T PROTEIN (test code = 2432783365) 7.0 g/dL 6.3-8.2 ALBUMIN (test code = 7869169486) 4.2 g/dL 3.5-5.0 ALK PHOS (test code = 2605299796) 118 U/L 34-122 ALTv (test code = 1742-6) 34 U/L 5-35 AST(SGOT) (test code = 6202046253) 34 U/L 13-40 eGFR (test code = 0002674314) 108.1 mL/min/1.73m2 ZAINAB (test code = ZAINAB) [...] or urine or abnormalities in imaging tests). [facility] METABOLIC PANEL ([id number])2022-11-03 17:25:32* Test Item Value Reference Range Interpretation Comme nts NA (test code = 1720578074) 139 mmol/L 135-145 K (test code = 3248917387) 4.2 mmol/L 3.5-5.0 CL (test code = 5285862056) 105 mmol/L 98-108 CO2 TOTAL (test code = 8842555315) 26 mmol/L 23-31 AGAP (test code = 1151266885) 8 2-16 BUN (test code = 1636267413) 9 mg/dL 7-23 GLUCOSE (test code = 9250698049) 93 mg/dL 70-110 CREATININE (test code = 5529419703) 0.60 mg/dL 0.50-1.04 TOTAL BILI (test code = 0555998290) 0.2 mg/dL 0.1-1.1 CALCIUM (test code = 7992659411) 9.2 mg/dL 8.6-10.6 T PROTEIN (test code = 9095869973) 7.0 g/dL 6.3-8.2 ALBUMIN (test code = 3126100924) 4.2 g/dL 3.5-5.0 ALK PHOS (test code = 1512069268) 118 U/L 34-122 ALTv (test code = 1742-6) 34 U/L 5-35 AST(SGOT) (test code = 0675338145) 34 U/L 13-40 eGFR (test code = 7109763539) 108.1 mL/min/1.73m2 ZAINAB (test code = ZAINAB) [...] or urine or abnormalities in imaging tests). [facility] ([id number])2022-11-03 17:25:32* Test Item Value Reference Range Interpretation Comme nts NA (test code = 6772994659) 139 mmol/L 135-145 K (test code = 2962389754) 4.2 mmol/L 3.5-5.0 CL (test code = 2673626068) 105 mmol/L 98-108 CO2 TOTAL (test code = 7184123278) 26 mmol/L 23-31 AGAP (test code = 8214291243) 8 2-16 BUN (test code = 0551556251) 9 mg/dL 7-23 GLUCOSE (test code = 2221066923) 93 mg/dL 70-110 CREATININE (test code = 5133648976) 0.60 mg/dL 0.50-1.04 TOTAL BILI (test code = 1449005074) 0.2 mg/dL 0.1-1.1 CALCIUM (test code = 0376917936) 9.2 mg/dL 8.6-10.6 T PROTEIN (test code = 7374915406) 7.0 g/dL 6.3-8.2 ALBUMIN (test code = 3913123234) 4.2 g/dL 3.5-5.0 ALK PHOS (test code = 9838743337) 118 U/L 34-122 ALTv (test code = 1742-6) 34 U/L 5-35 AST(SGOT) (test code = 1724457170) 34 U/L 13-40 eGFR (test code = 25694-0) 108.1 mL/min/1.73m2 ZAINAB (test code = ZAINAB) [...] or urine or abnormalities in imaging tests). [facility] METABOLIC PANEL ([id number])2022-11-03 17:25:32* Test Item Value Reference Range Interpretation Comme nts NA (test code = 3786562271) 139 mmol/L 135-145 K (test code = 9636691706) 4.2 mmol/L 3.5-5.0 CL (test code = 7855370324) 105 mmol/L 98-108 CO2 TOTAL (test code = 0386867373) 26 mmol/L 23-31 AGAP (test code = 7726202670) 8 2-16 BUN (test code = 0823653317) 9 mg/dL 7-23 GLUCOSE (test code = 3804410026) 93 mg/dL 70-110 CREATININE (test code = 6879390701) 0.60 mg/dL 0.50-1.04 TOTAL BILI (test code = 3588157500) 0.2 mg/dL 0.1-1.1 CALCIUM (test code = 5029148625) 9.2 mg/dL 8.6-10.6 T PROTEIN (test code = 4338420861) 7.0 g/dL 6.3-8.2 ALBUMIN (test code = 8644721040) 4.2 g/dL 3.5-5.0 ALK PHOS (test code = 1461153201) 118 U/L 34-122 ALTv (test code = 1742-6) 34 U/L 5-35 AST(SGOT) (test code = 8678555671) 34 U/L 13-40 eGFR (test code = 61426-5) 108.1 mL/min/1.73m2 ZAINAB (test code = ZAINAB) [...] or urine or abnormalities in imaging tests). [facility] METABOLIC PANEL ([id number])2022-11-03 17:25:32* Test Item Value Reference Range Interpretation Comme nts NA (test code = 0528562996) 139 mmol/L 135-145 K (test code = 7507378615) 4.2 mmol/L 3.5-5.0 CL (test code = 5093672602) 105 mmol/L 98-108 CO2 TOTAL (test code = 3162936219) 26 mmol/L 23-31 AGAP (test code = 6527750722) 8 2-16 BUN (test code = 9218885665) 9 mg/dL 7-23 GLUCOSE (test code = 7729793899) 93 mg/dL 70-110 CREATININE (test code = 3525866013) 0.60 mg/dL 0.50-1.04 TOTAL BILI (test code = 5595592762) 0.2 mg/dL 0.1-1.1 CALCIUM (test code = 4443042428) 9.2 mg/dL 8.6-10.6 T PROTEIN (test code = 2917726954) 7.0 g/dL 6.3-8.2 ALBUMIN (test code = 0185065312) 4.2 g/dL 3.5-5.0 ALK PHOS (test code = 5703760736) 118 U/L 34-122 ALTv (test code = 1742-6) 34 U/L 5-35 AST(SGOT) (test code = 4407390908) 34 U/L 13-40 eGFR (test code = 04549-7) 108.1 mL/min/1.73m2 ZAINAB (test code = ZAINAB) [...] or urine or abnormalities in imaging tests). [facility] METABOLIC PANEL ([id number])2022-11-03 17:25:32* Test Item Value Reference Range Interpretation Comme nts NA (test code = 1621534712) 139 mmol/L 135-145 K (test code = 7415985616) 4.2 mmol/L 3.5-5.0 CL (test code = 4693725604) 105 mmol/L 98-108 CO2 TOTAL (test code = 3509443934) 26 mmol/L 23-31 AGAP (test code = 8534890168) 8 2-16 BUN (test code = 3616308763) 9 mg/dL 7-23 GLUCOSE (test code = 2287209490) 93 mg/dL 70-110 CREATININE (test code = 3964180294) 0.60 mg/dL 0.50-1.04 TOTAL BILI (test code = 1566358451) 0.2 mg/dL 0.1-1.1 CALCIUM (test code = 7834963684) 9.2 mg/dL 8.6-10.6 T PROTEIN (test code = 4097378711) 7.0 g/dL 6.3-8.2 ALBUMIN (test code = 4376525682) 4.2 g/dL 3.5-5.0 ALK PHOS (test code = 7661346221) 118 U/L 34-122 ALTv (test code = 1742-6) 34 U/L 5-35 AST(SGOT) (test code = 3530396167) 34 U/L 13-40 eGFR (test code = 27342-3) 108.1 mL/min/1.73m2 ZAINAB (test code = ZAINAB) [...] or urine or abnormalities in imaging tests). [facility] METABOLIC PANEL ([id number])2022-11-03 17:25:32* Test Item Value Reference Range Interpretation Comme nts NA (test code = 7929065065) 139 mmol/L 135-145 K (test code = 0880587886) 4.2 mmol/L 3.5-5.0 CL (test code = 5161515745) 105 mmol/L 98-108 CO2 TOTAL (test code = 2847852096) 26 mmol/L 23-31 AGAP (test code = 5640439814) 8 2-16 BUN (test code = 2594426463) 9 mg/dL 7-23 GLUCOSE (test code = 6953238039) 93 mg/dL 70-110 CREATININE (test code = 7049227960) 0.60 mg/dL 0.50-1.04 TOTAL BILI (test code = 4730217940) 0.2 mg/dL 0.1-1.1 CALCIUM (test code = 9314744592) 9.2 mg/dL 8.6-10.6 T PROTEIN (test code = 9753879076) 7.0 g/dL 6.3-8.2 ALBUMIN (test code = 9817263660) 4.2 g/dL 3.5-5.0 ALK PHOS (test code = 6635537144) 118 U/L 34-122 ALTv (test code = 1742-6) 34 U/L 5-35 AST(SGOT) (test code = 0416903262) 34 U/L 13-40 eGFR (test code = 75889-2) 108.1 mL/min/1.73m2 ZAINAB (test code = ZAINAB) [...] or urine or abnormalities in imaging tests). [facility] METABOLIC PANEL ([id number])2022-11-03 17:25:32* Test Item Value Reference Range Interpretation Comme nts NA (test code = 6400265698) 139 mmol/L 135-145 K (test code = 1339713459) 4.2 mmol/L 3.5-5.0 CL (test code = 1113068900) 105 mmol/L 98-108 CO2 TOTAL (test code = 5457697543) 26 mmol/L 23-31 AGAP (test code = 0977724937) 8 2-16 BUN (test code = 0768126422) 9 mg/dL 7-23 GLUCOSE (test code = 9260996318) 93 mg/dL 70-110 CREATININE (test code = 5120455411) 0.60 mg/dL 0.50-1.04 TOTAL BILI (test code = 4570836005) 0.2 mg/dL 0.1-1.1 CALCIUM (test code = 0771138765) 9.2 mg/dL 8.6-10.6 T PROTEIN (test code = 2058523448) 7.0 g/dL 6.3-8.2 ALBUMIN (test code = 7301838769) 4.2 g/dL 3.5-5.0 ALK PHOS (test code = 7495440594) 118 U/L 34-122 ALTv (test code = 1742-6) 34 U/L 5-35 AST(SGOT) (test code = 5955058542) 34 U/L 13-40 eGFR (test code = 09114-5) 108.1 mL/min/1.73m2 ZAINAB (test code = ZAINAB) [...] or urine or abnormalities in imaging tests). [facility]. METABOLIC PANEL ([id number])2022-11-03 17:25:32* Test Item Value Reference Range Interpretation Comme nts NA (test code = 5415369847) 139 mmol/L 135-145 K (test code = 7311008394) 4.2 mmol/L 3.5-5.0 CL (test code = 9290079882) 105 mmol/L 98-108 CO2 TOTAL (test code = 7755401324) 26 mmol/L 23-31 AGAP (test code = 5308062904) 8 2-16 BUN (test code = 8154539267) 9 mg/dL 7-23 GLUCOSE (test code = 6209321263) 93 mg/dL 70-110 CREATININE (test code = 8266703281) 0.60 mg/dL 0.50-1.04 TOTAL BILI (test code = 8558756641) 0.2 mg/dL 0.1-1.1 CALCIUM (test code = 0421760079) 9.2 mg/dL 8.6-10.6 T PROTEIN (test code = 0511531606) 7.0 g/dL 6.3-8.2 ALBUMIN (test code = 2403148241) 4.2 g/dL 3.5-5.0 ALK PHOS (test code = 6518304536) 118 U/L 34-122 ALTv (test code = 1742-6) 34 U/L 5-35 AST(SGOT) (test code = 5242347372) 34 U/L 13-40 eGFR (test code = 40048-8) 108.1 mL/min/1.73m2 ZAINAB (test code = ZAINAB) [...] or urine or abnormalities in imaging tests). [facility]. METABOLIC PANEL ([id number])2022-11-03 17:25:32* Test Item Value Reference Range Interpretation Comme nts NA (test code = 9098760158) 139 mmol/L 135-145 K (test code = 3780845649) 4.2 mmol/L 3.5-5.0 CL (test code = 4131144013) 105 mmol/L 98-108 CO2 TOTAL (test code = 7120403830) 26 mmol/L 23-31 AGAP (test code = 8532315743) 8 2-16 BUN (test code = 5005440328) 9 mg/dL 7-23 GLUCOSE (test code = 5425869493) 93 mg/dL 70-110 CREATININE (test code = 3709138690) 0.60 mg/dL 0.50-1.04 TOTAL BILI (test code = 1663815189) 0.2 mg/dL 0.1-1.1 CALCIUM (test code = 6562730388) 9.2 mg/dL 8.6-10.6 T PROTEIN (test code = 2194676187) 7.0 g/dL 6.3-8.2 ALBUMIN (test code = 0872495713) 4.2 g/dL 3.5-5.0 ALK PHOS (test code = 1910322392) 118 U/L 34-122 ALTv (test code = 1749-6) 34 U/L 5-35 AST(SGOT) (test code = 7777130179) 34 U/L 13-40 eGFR (test code = 27793-1) 108.1 mL/min/1.73m2 ZAINAB (test code = ZAINAB) [...] or urine or abnormalities in imaging tests). [facility]. METABOLIC PANEL ([id number])2022-11-03 17:25:32* Test Item Value Reference Range Interpretation Comme nts NA (test code = 4716514621) 139 mmol/L 135-145 K (test code = 4752456448) 4.2 mmol/L 3.5-5.0 CL (test code = 9279717155) 105 mmol/L 98-108 CO2 TOTAL (test code = 7891419668) 26 mmol/L 23-31 AGAP (test code = 6897164914) 8 2-16 BUN (test code = 7844722649) 9 mg/dL 7-23 GLUCOSE (test code = 0469350383) 93 mg/dL 70-110 CREATININE (test code = 9018392044) 0.60 mg/dL 0.50-1.04 TOTAL BILI (test code = 3664299698) 0.2 mg/dL 0.1-1.1 CALCIUM (test code = 8722155458) 9.2 mg/dL 8.6-10.6 T PROTEIN (test code = 5629961113) 7.0 g/dL 6.3-8.2 ALBUMIN (test code = 5803307844) 4.2 g/dL 3.5-5.0 ALK PHOS (test code = 1514458580) 118 U/L 34-122 ALTv (test code = 1742-6) 34 U/L 5-35 AST(SGOT) (test code = 0634801960) 34 U/L 13-40 eGFR (test code = 21354-5) 108.1 mL/min/1.73m2 ZAINAB (test code = ZAINAB) [...] or urine or abnormalities in imaging tests). [facility]. METABOLIC PANEL ([id number])2022-11-03 17:25:32* Test Item Value Reference Range Interpretation Comme nts NA (test code = 2048702760) 139 mmol/L 135-145 K (test code = 4316621303) 4.2 mmol/L 3.5-5.0 CL (test code = 3664938257) 105 mmol/L 98-108 CO2 TOTAL (test code = 5409986890) 26 mmol/L 23-31 AGAP (test code = 2716595493) 8 2-16 BUN (test code = 7715886287) 9 mg/dL 7-23 GLUCOSE (test code = 2216859963) 93 mg/dL 70-110 CREATININE (test code = 5747088393) 0.60 mg/dL 0.50-1.04 TOTAL BILI (test code = 3673309882) 0.2 mg/dL 0.1-1.1 CALCIUM (test code = 0822859294) 9.2 mg/dL 8.6-10.6 T PROTEIN (test code = 1443615375) 7.0 g/dL 6.3-8.2 ALBUMIN (test code = 0862906345) 4.2 g/dL 3.5-5.0 ALK PHOS (test code = 3407538828) 118 U/L 34-122 ALTv (test code = 1742-6) 34 U/L 5-35 AST(SGOT) (test code = 1104819613) 34 U/L 13-40 eGFR (test code = 93437-1) 108.1 mL/min/1.73m2 ZAINAB (test code = ZAINAB) [...] or urine or abnormalities in imaging tests). [facility] WITH [id number] 17:18:52* Test Item Value Reference Range Interpretation Comme nts WBC (test code = 6690-2) 7.41 See_Comment [Automated [employer]] The system which generated this result transmitted reference range: 4.30 - 11.10 10*3/?L. The reference range was not used to interpret this result as normal/abnormal. RBC (test code = 789-8) 4.20 See_Comment [[employer]] The system which generated this result transmitted [...] g/dL 31.6-35.1 L RDW-SD (test code = 56710-9) 46.2 fL 39.0-49.9 RDW-CV (test code = 788-0) 17.9 % 12.0-15.5 H PLT (test code = 777-3) 304 See_Comment [Automated messa ge] The system which generated this result transmitted reference range: 166 - 358 10*3/?L. The reference range was not used to interpret this result as normal/abnormal. MPV (test code = 89711-1) 11.0 fL 9.5-12.9 NRBC/100 WBC (test code = 8667591087) 0.0 See_Comment [Automated [employer]age] The system which generated this result transmitted reference range: 0.0 - 10.0 /100 WBCs. The reference range was not used to interpret this result as normal/abnormal. NRBC x10^3 (test code = 8854244817) See_Comment [Automated [employer] ge] The system which generated this result transmitted reference range: 10*3/?L. The reference range was not used to interpret this result as normal/abnormal. GRAN MAT (NEUT) % (test code = 770-8) 68.6 % IMM GRAN % (test code = 0802922837) 0.70 % LYMPH % (test code = 736-9) 19.8 % MONO % (test code = 5905-5) 5.3 % EOS % (test code = 713-8) 5.1 % BASO % (test code = 706-2) 0.5 % GRAN MAT x10^3(ANC) (test code = 3660121432) 5.08 10*3/uL 1.88-7.09 IMM GRAN x10^3 (test code = 0233775114) 0.05 10*3/uL 0.00-0.06 LYMPH x10^3 (test code = 731-0) 1.47 10*3/uL 1.32-3.29 MONO x10^3 (test code = 742-7) 0.39 10*3/uL 0.33-0.92 EOS x10^3 (test code = 711-2) 0.38 10*3/uL 0.03-0.39 BASO x10^3 (test code = 704-7) 0.04 10*3/uL 0.01-0.07 Lab Interpretation (test code = 48091-0) Abnormal [facility] WITH [id number] 17:18:52* Test Item Value Reference Range Interpretation [...] g/dL 31.6-35.1 L RDW-SD (test code = 35506-3) 46.2 fL 39.0-49.9 RDW-CV (test code = 788-0) 17.9 % 12.0-15.5 H PLT (test code = 777-3) 304 See_Comment [Automated messa ge] The system which generated this result transmitted reference range: 166 - 358 10*3/?L. The reference range was not used to interpret this result as normal/abnormal. MPV (test code = 63565-2) 11.0 fL 9.5-12.9 NRBC/100 WBC (test code = 8726103745) 0.0 See_Comment [Automated [employer] ssage] The system which generated this result transmitted reference range: 0.0 - 10.0 /100 WBCs. The reference range was not used to interpret this result as normal/abnormal. NRBC x10^3 (test code = 9882043576) See_Comment [Automated messa ge] The system which generated this result transmitted reference range: 10*3/?L. The reference range was not used to interpret this result as normal/abnormal. GRAN MAT (NEUT) % (test code = 770-8) 68.6 % IMM GRAN % (test code = 1588145553) 0.70 % LYMPH % (test code = 736-9) 19.8 % MONO % (test code = 5905-5) 5.3 % EOS % (test code = 713-8) 5.1 % BASO % (test code = 706-2) 0.5 % GRAN MAT x10^3(ANC) (test code = 8980728870) 5.08 10*3/uL 1.88-7.09 IMM GRAN x10^3 (test code = 8982287446) 0.05 10*3/uL 0.00-0.06 LYMPH x10^3 (test code = 731-0) 1.47 10*3/uL 1.32-3.29 MONO x10^3 (test code = 742-7) 0.39 10*3/uL 0.33-0.92 EOS x10^3 (test code = 711-2) 0.38 10*3/uL 0.03-0.39 BASO x10^3 (test code = 704-7) 0.04 10*3/uL 0.01-0.07 Lab Interpretation (test code = 65844-8) Abnormal [facility] WITH [id number] 17:18:52* Test Item Value Reference Range Interpretation Comme nts WBC (test code = 6690-2) 7.41 See_Comment [Automated [employer] ge] The system which generated this result transmitted reference range: 4.30 - 11.10 10*3/?L. The reference range was not used to interpret this result as normal/abnormal. RBC (test code = 789-8) 4.20 See_Comment [Automated [employer] ge] The system which generated this result [...] g/dL 31.6-35.1 L RDW-SD (test code = 22465-8) 46.2 fL 39.0-49.9 RDW-CV (test code = 788-0) 17.9 % 12.0-15.5 H PLT (test code = 777-3) 304 See_Comment [Automated messa ge] The system which generated this result transmitted reference range: 166 - 358 10*3/?L. The reference range was not used to interpret this result as normal/abnormal. MPV (test code = 75458-2) 11.0 fL 9.5-12.9 NRBC/100 WBC (test code = 4903706708) 0.0 See_Comment [Automated [employer]age] The system which generated this result transmitted reference range: 0.0 - 10.0 /100 WBCs. The reference range was not used to interpret this result as normal/abnormal. NRBC x10^3 (test code = 9502890163) See_Comment [Automated messa ge] The system which generated this result transmitted reference range: 10*3/?L. The reference range was not used to interpret this result as normal/abnormal. GRAN MAT (NEUT) % (test code = 770-8) 68.6 % IMM GRAN % (test code = 5722434734) 0.70 % LYMPH % (test code = 736-9) 19.8 % MONO % (test code = 5905-5) 5.3 % EOS % (test code = 713-8) 5.1 % BASO % (test code = 706-2) 0.5 % GRAN MAT x10^3(ANC) (test code = 2007664211) 5.08 10*3/uL 1.88-7.09 IMM GRAN x10^3 (test code = 3077192970) 0.05 10*3/uL 0.00-0.06 LYMPH x10^3 (test code = 731-0) 1.47 10*3/uL 1.32-3.29 MONO x10^3 (test code = 742-7) 0.39 10*3/uL 0.33-0.92 EOS x10^3 (test code = 711-2) 0.38 10*3/uL 0.03-0.39 BASO x10^3 (test code = 704-7) 0.04 10*3/uL 0.01-0.07 Lab Interpretation (test code = 82506-1) Abnormal [facility] WITH [id number] 17:18:52* Test Item Value Reference Range Interpretation Comme nts WBC (test code = 6690-2) 7.41 See_Comment [Automated [employer]] The system which generated this result transmitted reference range: 4.30 - 11.10 10*3/?L. The reference range was not used to interpret this result as normal/abnormal. RBC (test code = 789-8) 4.20 See_Comment [Automated [employer]] The system which generated this result transmitted [...] g/dL 31.6-35.1 L RDW-SD (test code = 61555-1) 46.2 fL 39.0-49.9 RDW-CV (test code = 788-0) 17.9 % 12.0-15.5 H PLT (test code = 777-3) 304 See_Comment [Automated [employer] ge] The system which generated this result transmitted reference range: 166 - 358 10*3/?L. The reference range was not used to interpret this result as normal/abnormal. MPV (test code = 35390-1) 11.0 fL 9.5-12.9 NRBC/100 WBC (test code = 4277509918) 0.0 See_Comment [Automated me ssage] The system which generated this result transmitted reference range: 0.0 - 10.0 /100 WBCs. The reference range was not used to interpret this result as normal/abnormal. NRBC x10^3 (test code = 0180806315) See_Comment [Automated messa ge] The system which generated this result transmitted reference range: 10*3/?L. The reference range was not used to interpret this result as normal/abnormal. GRAN MAT (NEUT) % (test code = 770-8) 68.6 % IMM GRAN % (test code = 3543966416) 0.70 % LYMPH % (test code = 736-9) 19.8 % MONO % (test code = 5905-5) 5.3 % EOS % (test code = 713-8) 5.1 % BASO % (test code = 706-2) 0.5 % GRAN MAT x10^3(ANC) (test code = 2015170636) 5.08 10*3/uL 1.88-7.09 IMM GRAN x10^3 (test code = 3566758439) 0.05 10*3/uL 0.00-0.06 LYMPH x10^3 (test code = 731-0) 1.47 10*3/uL 1.32-3.29 MONO x10^3 (test code = 742-7) 0.39 10*3/uL 0.33-0.92 EOS x10^3 (test code = 711-2) 0.38 10*3/uL 0.03-0.39 BASO x10^3 (test code = 704-7) 0.04 10*3/uL 0.01-0.07 Lab Interpretation (test code = 13032-2) Abnormal [facility] WITH [id number] 17:18:52* Test Item Value Reference Range Interpretation [...] g/dL 31.6-35.1 L RDW-SD (test code = 15303-1) 46.2 fL 39.0-49.9 RDW-CV (test code = 788-0) 17.9 % 12.0-15.5 H PLT (test code = 777-3) 304 See_Comment [Automated [employer] ge] The system which generated this result transmitted reference range: 166 - 358 10*3/?L. The reference range was not used to interpret this result as normal/abnormal. MPV (test code = 88742-5) 11.0 fL 9.5-12.9 NRBC/100 WBC (test code = 0729097885) 0.0 See_Comment [Automated [employer]] The system which generated this result transmitted reference range: 0.0 - 10.0 /100 WBCs. The reference range was not used to interpret this result as normal/abnormal. NRBC x10^3 (test code = 7689358051) See_Comment [Automated [employer] ge] The system which generated this result transmitted reference range: 10*3/?L. The reference range was not used to interpret this result as normal/abnormal. GRAN MAT (NEUT) % (test code = 770-8) 68.6 % IMM GRAN % (test code = 5620317847) 0.70 % LYMPH % (test code = 736-9) 19.8 % MONO % (test code = 5905-5) 5.3 % EOS % (test code = 713-8) 5.1 % BASO % (test code = 706-2) 0.5 % GRAN MAT x10^3(ANC) (test code = 4610523432) 5.08 10*3/uL 1.88-7.09 IMM GRAN x10^3 (test code = 4834933090) 0.05 10*3/uL 0.00-0.06 LYMPH x10^3 (test code = 731-0) 1.47 10*3/uL 1.32-3.29 MONO x10^3 (test code = 742-7) 0.39 10*3/uL 0.33-0.92 EOS x10^3 (test code = 711-2) 0.38 10*3/uL 0.03-0.39 BASO x10^3 (test code = 704-7) 0.04 10*3/uL 0.01-0.07 Lab Interpretation (test code = 98943-9) Abnormal [facility] WITH [id number] 17:18:52* Test Item Value Reference Range Interpretation Comme nts WBC (test code = 6690-2) 7.41 See_Comment [Automated [employer] ge] The system which generated this result transmitted reference range: 4.30 - 11.10 10*3/?L. The reference range was not used to interpret this result as normal/abnormal. RBC (test code = 789-8) 4.20 See_Comment [Automated [employer] ge] The system which generated this result [...] g/dL 31.6-35.1 L RDW-SD (test code = 48859-2) 46.2 fL 39.0-49.9 RDW-CV (test code = 788-0) 17.9 % 12.0-15.5 H PLT (test code = 777-3) 304 See_Comment [Automated messa ge] The system which generated this result transmitted reference range: 166 - 358 10*3/?L. The reference range was not used to interpret this result as normal/abnormal. MPV (test code = 59409-6) 11.0 fL 9.5-12.9 NRBC/100 WBC (test code = 9082024416) 0.0 See_Comment [Automated me ssage] The system which generated this result transmitted reference range: 0.0 - 10.0 /100 WBCs. The reference range was not used to interpret this result as normal/abnormal. NRBC x10^3 (test code = 2741843423) See_Comment [Automated messa ge] The system which generated this result transmitted reference range: 10*3/?L. The reference range was not used to interpret this result as normal/abnormal. GRAN MAT (NEUT) % (test code = 770-8) 68.6 % IMM GRAN % (test code = 3876615939) 0.70 % LYMPH % (test code = 736-9) 19.8 % MONO % (test code = 5905-5) 5.3 % EOS % (test code = 713-8) 5.1 % BASO % (test code = 706-2) 0.5 % GRAN MAT x10^3(ANC) (test code = 7600024163) 5.08 10*3/uL 1.88-7.09 IMM GRAN x10^3 (test code = 4848416677) 0.05 10*3/uL 0.00-0.06 LYMPH x10^3 (test code = 731-0) 1.47 10*3/uL 1.32-3.29 MONO x10^3 (test code = 742-7) 0.39 10*3/uL 0.33-0.92 EOS x10^3 (test code = 711-2) 0.38 10*3/uL 0.03-0.39 BASO x10^3 (test code = 704-7) 0.04 10*3/uL 0.01-0.07 Lab Interpretation (test code = 38806-7) Abnormal [facility] WITH [id number] 17:18:52* Test Item Value Reference Range Interpretation [...] g/dL 31.6-35.1 L RDW-SD (test code = 88298-8) 46.2 fL 39.0-49.9 RDW-CV (test code = 788-0) 17.9 % 12.0-15.5 H PLT (test code = 777-3) 304 See_Comment [Automated messa ge] The system which generated this result transmitted reference range: 166 - 358 10*3/?L. The reference range was not used to interpret this result as normal/abnormal. MPV (test code = 19763-5) 11.0 fL 9.5-12.9 NRBC/100 WBC (test code = 6509180851) 0.0 See_Comment [Automated [employer]] The system which generated this result transmitted reference range: 0.0 - 10.0 /100 WBCs. The reference range was not used to interpret this result as normal/abnormal. NRBC x10^3 (test code = 4944716194) See_Comment [Automated messa ge] The system which generated this result transmitted reference range: 10*3/?L. The reference range was not used to interpret this result as normal/abnormal. GRAN MAT (NEUT) % (test code = 770-8) 68.6 % IMM GRAN % (test code = 1142452772) 0.70 % LYMPH % (test code = 736-9) 19.8 % MONO % (test code = 5905-5) 5.3 % EOS % (test code = 713-8) 5.1 % BASO % (test code = 706-2) 0.5 % GRAN MAT x10^3(ANC) (test code = 1955919461) 5.08 10*3/uL 1.88-7.09 IMM GRAN x10^3 (test code = 4770211938) 0.05 10*3/uL 0.00-0.06 LYMPH x10^3 (test code = 731-0) 1.47 10*3/uL 1.32-3.29 MONO x10^3 (test code = 742-7) 0.39 10*3/uL 0.33-0.92 EOS x10^3 (test code = 711-2) 0.38 10*3/uL 0.03-0.39 BASO x10^3 (test code = 704-7) 0.04 10*3/uL 0.01-0.07 Lab Interpretation (test code = 63639-1) Abnormal [facility] WITH [id number] 17:18:52* Test Item Value Reference Range Interpretation [...] g/dL 31.6-35.1 L RDW-SD (test code = 83482-0) 46.2 fL 39.0-49.9 RDW-CV (test code = 788-0) 17.9 % 12.0-15.5 H PLT (test code = 777-3) 304 See_Comment [Automated messa ge] The system which generated this result transmitted reference range: 166 - 358 10*3/?L. The reference range was not used to interpret this result as normal/abnormal. MPV (test code = 88842-4) 11.0 fL 9.5-12.9 NRBC/100 WBC (test code = 8703763923) 0.0 See_Comment [Automated [employer]] The system which generated this result transmitted reference range: 0.0 - 10.0 /100 WBCs. The reference range was not used to interpret this result as normal/abnormal. NRBC x10^3 (test code = 9930469800) See_Comment [Automated [employer] ge] The system which generated this result transmitted reference range: 10*3/?L. The reference range was not used to interpret this result as normal/abnormal. GRAN MAT (NEUT) % (test code = 770-8) 68.6 % IMM GRAN % (test code = 6526752647) 0.70 % LYMPH % (test code = 736-9) 19.8 % MONO % (test code = 5905-5) 5.3 % EOS % (test code = 713-8) 5.1 % BASO % (test code = 706-2) 0.5 % GRAN MAT x10^3(ANC) (test code = 8253802088) 5.08 10*3/uL 1.88-7.09 IMM GRAN x10^3 (test code = 5888683827) 0.05 10*3/uL 0.00-0.06 LYMPH x10^3 (test code = 731-0) 1.47 10*3/uL 1.32-3.29 MONO x10^3 (test code = 742-7) 0.39 10*3/uL 0.33-0.92 EOS x10^3 (test code = 711-2) 0.38 10*3/uL 0.03-0.39 BASO x10^3 (test code = 704-7) 0.04 10*3/uL 0.01-0.07 Lab Interpretation (test code = 74369-1) Abnormal [facility] WITH [id number] 17:18:52* Test Item Value Reference Range Interpretation [...] g/dL 31.6-35.1 L RDW-SD (test code = 17296-2) 46.2 fL 39.0-49.9 RDW-CV (test code = 788-0) 17.9 % 12.0-15.5 H PLT (test code = 777-3) 304 See_Comment [Automated messa ge] The system which generated this result transmitted reference range: 166 - 358 10*3/?L. The reference range was not used to interpret this result as normal/abnormal. MPV (test code = 48079-2) 11.0 fL 9.5-12.9 NRBC/100 WBC (test code = 1523329574) 0.0 See_Comment [Automated me ssage] The system which generated this result transmitted reference range: 0.0 - 10.0 /100 WBCs. The reference range was not used to interpret this result as normal/abnormal. NRBC x10^3 (test code = 6609854147) See_Comment [Automated messa ge] The system which generated this result transmitted reference range: 10*3/?L. The reference range was not used to interpret this result as normal/abnormal. GRAN MAT (NEUT) % (test code = 770-8) 68.6 % IMM GRAN % (test code = 9211471096) 0.70 % LYMPH % (test code = 736-9) 19.8 % MONO % (test code = 5905-5) 5.3 % EOS % (test code = 713-8) 5.1 % BASO % (test code = 706-2) 0.5 % GRAN MAT x10^3(ANC) (test code = 3859951186) 5.08 10*3/uL 1.88-7.09 IMM GRAN x10^3 (test code = 0763473648) 0.05 10*3/uL 0.00-0.06 LYMPH x10^3 (test code = 731-0) 1.47 10*3/uL 1.32-3.29 MONO x10^3 (test code = 742-7) 0.39 10*3/uL 0.33-0.92 EOS x10^3 (test code = 711-2) 0.38 10*3/uL 0.03-0.39 BASO x10^3 (test code = 704-7) 0.04 10*3/uL 0.01-0.07 Lab Interpretation (test code = 61177-0) Abnormal [facility] WITH [id number] 17:18:52* Test Item Value Reference Range Interpretation [...] g/dL 31.6-35.1 L RDW-SD (test code = 54192-1) 46.2 fL 39.0-49.9 RDW-CV (test code = 788-0) 17.9 % 12.0-15.5 H PLT (test code = 777-3) 304 See_Comment [Automated messa ge] The system which generated this result transmitted reference range: 166 - 358 10*3/?L. The reference range was not used to interpret this result as normal/abnormal. MPV (test code = 14114-7) 11.0 fL 9.5-12.9 NRBC/100 WBC (test code = 2928401480) 0.0 See_Comment [Automated [employer]] The system which generated this result transmitted reference range: 0.0 - 10.0 /100 WBCs. The reference range was not used to interpret this result as normal/abnormal. NRBC x10^3 (test code = 7495273372) See_Comment [Automated messa ge] The system which generated this result transmitted reference range: 10*3/?L. The reference range was not used to interpret this result as normal/abnormal. GRAN MAT (NEUT) % (test code = 770-8) 68.6 % IMM GRAN % (test code = 8150556135) 0.70 % LYMPH % (test code = 736-9) 19.8 % MONO % (test code = 5905-5) 5.3 % EOS % (test code = 713-8) 5.1 % BASO % (test code = 706-2) 0.5 % GRAN MAT x10^3(ANC) (test code = 1013979721) 5.08 10*3/uL 1.88-7.09 IMM GRAN x10^3 (test code = 0355230161) 0.05 10*3/uL 0.00-0.06 LYMPH x10^3 (test code = 731-0) 1.47 10*3/uL 1.32-3.29 MONO x10^3 (test code = 742-7) 0.39 10*3/uL 0.33-0.92 EOS x10^3 (test code = 711-2) 0.38 10*3/uL 0.03-0.39 BASO x10^3 (test code = 704-7) 0.04 10*3/uL 0.01-0.07 Lab Interpretation (test code = 61877-2) Abnormal [facility] WITH [id number] 17:18:52* Test Item Value Reference Range Interpretation [...] g/dL 31.6-35.1 L RDW-SD (test code = 29067-3) 46.2 fL 39.0-49.9 RDW-CV (test code = 788-0) 17.9 % 12.0-15.5 H PLT (test code = 777-3) 304 See_Comment [Automated messa ge] The system which generated this result transmitted reference range: 166 - 358 10*3/?L. The reference range was not used to interpret this result as normal/abnormal. MPV (test code = 22718-5) 11.0 fL 9.5-12.9 NRBC/100 WBC (test code = 8975220150) 0.0 See_Comment [Automated me ssage] The system which generated this result transmitted reference range: 0.0 - 10.0 /100 WBCs. The reference range was not used to interpret this result as normal/abnormal. NRBC x10^3 (test code = 9534175187) See_Comment [Automated messa ge] The system which generated this result transmitted reference range: 10*3/?L. The reference range was not used to interpret this result as normal/abnormal. GRAN MAT (NEUT) % (test code = 770-8) 68.6 % IMM GRAN % (test code = 2027198465) 0.70 % LYMPH % (test code = 736-9) 19.8 % MONO % (test code = 5905-5) 5.3 % EOS % (test code = 713-8) 5.1 % BASO % (test code = 706-2) 0.5 % GRAN MAT x10^3(ANC) (test code = 1546456851) 5.08 10*3/uL 1.88-7.09 IMM GRAN x10^3 (test code = 8285661295) 0.05 10*3/uL 0.00-0.06 LYMPH x10^3 (test code = 731-0) 1.47 10*3/uL 1.32-3.29 MONO x10^3 (test code = 742-7) 0.39 10*3/uL 0.33-0.92 EOS x10^3 (test code = 711-2) 0.38 10*3/uL 0.03-0.39 BASO x10^3 (test code = 704-7) 0.04 10*3/uL 0.01-0.07 Lab Interpretation (test code = 89537-3) Abnormal [facility] WITH [id number] 17:18:52* Test Item Value Reference Range Interpretation Comme nts WBC (test code = 6690-2) 7.41 See_Comment [Automated messa ge] The system which generated this result transmitted reference range: 4.30 - 11.10 10*3/?L. The reference range was not used to interpret this result as normal/abnormal. RBC (test code = 789-8) 4.20 See_Comment [Automated [place] ge] The system which generated this result [...] g/dL 31.6-35.1 L RDW-SD (test code = 64888-2) 46.2 fL 39.0-49.9 RDW-CV (test code = 788-0) 17.9 % 12.0-15.5 H PLT (test code = 777-3) 304 See_Comment [Automated [place]asm[place] ge] The system which generated this result transmitted reference range: 166 - 358 10*3/?L. The reference range was not used to interpret this result as normal/abnormal. MPV (test code = 58981-0) 11.0 fL 9.5-12.9 NRBC/100 WBC (test code = 6254397877) 0.0 See_Comment [Automated [employer]age] The system which generated this result transmitted reference range: 0.0 - 10.0 /100 WBCs. The reference range was not used to interpret this result as normal/abnormal. NRBC x10^3 (test code = 3947781409) See_Comment [Automated [employer] ge] The system which generated this result transmitted reference range: 10*3/?L. The reference range was not used to interpret this result as normal/abnormal. GRAN MAT (NEUT) % (test code = 770-8) 68.6 % IMM GRAN % (test code = 7509433278) 0.70 % LYMPH % (test code = 736-9) 19.8 % MONO % (test code = 5905-5) 5.3 % EOS % (test code = 713-8) 5.1 % BASO % (test code = 706-2) 0.5 % GRAN MAT x10^3(ANC) (test code = 6454758939) 5.08 10*3/uL 1.88-7.09 IMM GRAN x10^3 (test code = 6737657791) 0.05 10*3/uL 0.00-0.06 LYMPH x10^3 (test code = 731-0) 1.47 10*3/uL 1.32-3.29 MONO x10^3 (test code = 742-7) 0.39 10*3/uL 0.33-0.92 EOS x10^3 (test code = 711-2) 0.38 10*3/uL 0.03-0.39 BASO x10^3 (test code = 704-7) 0.04 10*3/uL 0.01-0.07 Lab Interpretation (test code = 41562-5) Abnormal [facility] WITH [id number] 17:18:52* Test Item Value Reference Range Interpretation Comme nts WBC (test code = 6690-2) 7.41 See_Comment [Automated [employer] ge] The system which generated this result transmitted reference range: 4.30 - 11.10 10*3/?L. The reference range was not used to interpret this result as normal/abnormal. RBC (test code = 789-8) 4.20 See_Comment [Automated [employer] ge] The system which generated this result [...] g/dL 31.6-35.1 L RDW-SD (test code = 36836-4) 46.2 fL 39.0-49.9 RDW-CV (test code = 788-0) 17.9 % 12.0-15.5 H PLT (test code = 777-3) 304 See_Comment [Automated messa ge] The system which generated this result transmitted reference range: 166 - 358 10*3/?L. The reference range was not used to interpret this result as normal/abnormal. MPV (test code = 24179-3) 11.0 fL 9.5-12.9 NRBC/100 WBC (test code = 2803515732) 0.0 See_Comment [Automated [employer]] The system which generated this result transmitted reference range: 0.0 - 10.0 /100 WBCs. The reference range was not used to interpret this result as normal/abnormal. NRBC x10^3 (test code = 9459168397) See_Comment [Automated messa ge] The system which generated this result transmitted reference range: 10*3/?L. The reference range was not used to interpret this result as normal/abnormal. GRAN MAT (NEUT) % (test code = 770-8) 68.6 % IMM GRAN % (test code = 6424214112) 0.70 % LYMPH % (test code = 736-9) 19.8 % MONO % (test code = 5905-5) 5.3 % EOS % (test code = 713-8) 5.1 % BASO % (test code = 706-2) 0.5 % GRAN MAT x10^3(ANC) (test code = 1710397934) 5.08 10*3/uL 1.88-7.09 IMM GRAN x10^3 (test code = 6729933551) 0.05 10*3/uL 0.00-0.06 LYMPH x10^3 (test code = 731-0) 1.47 10*3/uL 1.32-3.29 MONO x10^3 (test code = 742-7) 0.39 10*3/uL 0.33-0.92 EOS x10^3 (test code = 711-2) 0.38 10*3/uL 0.03-0.39 BASO x10^3 (test code = 704-7) 0.04 10*3/uL 0.01-0.07 Lab Interpretation (test code = 56957-8) Abnormal [facility] WITH [id number] 17:18:52* Test Item Value Reference Range Interpretation Comme nts WBC (test code = 6690-2) 7.41 See_Comment [Automated [employer] ge] The system which generated this result transmitted reference range: 4.30 - 11.10 10*3/?L. The reference range was not used to interpret this result as normal/abnormal. RBC (test code = 789-8) 4.20 See_Comment [Automated [employer] ge] The system which generated this result [...] g/dL 31.6-35.1 L RDW-SD (test code = 64133-6) 46.2 fL 39.0-49.9 RDW-CV (test code = 788-0) 17.9 % 12.0-15.5 H PLT (test code = 777-3) 304 See_Comment [Automated messa ge] The system which generated this result transmitted reference range: 166 - 358 10*3/?L. The reference range was not used to interpret this result as normal/abnormal. MPV (test code = 28960-1) 11.0 fL 9.5-12.9 NRBC/100 WBC (test code = 9382567886) 0.0 See_Comment [Automated [employer]] The system which generated this result transmitted reference range: 0.0 - 10.0 /100 WBCs. The reference range was not used to interpret this result as normal/abnormal. NRBC x10^3 (test code = 1371644416) See_Comment [Automated messa ge] The system which generated this result transmitted reference range: 10*3/?L. The reference range was not used to interpret this result as normal/abnormal. GRAN MAT (NEUT) % (test code = 770-8) 68.6 % IMM GRAN % (test code = 9670326685) 0.70 % LYMPH % (test code = 736-9) 19.8 % MONO % (test code = 5905-5) 5.3 % EOS % (test code = 713-8) 5.1 % BASO % (test code = 706-2) 0.5 % GRAN MAT x10^3(ANC) (test code = 9500270056) 5.08 10*3/uL 1.88-7.09 IMM GRAN x10^3 (test code = 6348949656) 0.05 10*3/uL 0.00-0.06 LYMPH x10^3 (test code = 731-0) 1.47 10*3/uL 1.32-3.29 MONO x10^3 (test code = 742-7) 0.39 10*3/uL 0.33-0.92 EOS x10^3 (test code = 711-2) 0.38 10*3/uL 0.03-0.39 BASO x10^3 (test code = 704-7) 0.04 10*3/uL 0.01-0.07 Lab Interpretation (test code = 89529-3) Abnormal [facility] WITH [id number] 17:18:52* Test Item Value Reference Range Interpretation [...] g/dL 31.6-35.1 L RDW-SD (test code = 66690-7) 46.2 fL 39.0-49.9 RDW-CV (test code = 788-0) 17.9 % 12.0-15.5 H PLT (test code = 777-3) 304 See_Comment [Automated messa ge] The system which generated this result transmitted reference range: 166 - 358 10*3/?L. The reference range was not used to interpret this result as normal/abnormal. MPV (test code = 67628-7) 11.0 fL 9.5-12.9 NRBC/100 WBC (test code = 3207485398) 0.0 See_Comment [Automated [employer]] The system which generated this result transmitted reference range: 0.0 - 10.0 /100 WBCs. The reference range was not used to interpret this result as normal/abnormal. NRBC x10^3 (test code = 0863135852) See_Comment [Automated [employer] ge] The system which generated this result transmitted reference range: 10*3/?L. The reference range was not used to interpret this result as normal/abnormal. GRAN MAT (NEUT) % (test code = 770-8) 68.6 % IMM GRAN % (test code = 4772135224) 0.70 % LYMPH % (test code = 736-9) 19.8 % MONO % (test code = 5905-5) 5.3 % EOS % (test code = 713-8) 5.1 % BASO % (test code = 706-2) 0.5 % GRAN MAT x10^3(ANC) (test code = 1912538636) 5.08 10*3/uL 1.88-7.09 IMM GRAN x10^3 (test code = 4857787464) 0.05 10*3/uL 0.00-0.06 LYMPH x10^3 (test code = 731-0) 1.47 10*3/uL 1.32-3.29 MONO x10^3 (test code = 742-7) 0.39 10*3/uL 0.33-0.92 EOS x10^3 (test code = 711-2) 0.38 10*3/uL 0.03-0.39 BASO x10^3 (test code = 704-7) 0.04 10*3/uL 0.01-0.07 Lab Interpretation (test code = 57933-4) Abnormal [facility] WITH [id number] 17:18:52* Test Item Value Reference Range Interpretation Comme nts WBC (test code = 6690-2) 7.41 See_Comment [Automated [employer] ge] The system which generated this result [...] g/dL 31.6-35.1 L RDW-SD (test code = 98855-3) 46.2 fL 39.0-49.9 RDW-CV (test code = 788-0) 17.9 % 12.0-15.5 H PLT (test code = 777-3) 304 See_Comment [Automated [employer] ge] The system which generated this result transmitted reference range: 166 - 358 10*3/?L. The reference range was not used to interpret this result as normal/abnormal. MPV (test code = 30859-0) 11.0 fL 9.5-12.9 NRBC/100 WBC (test code = 8844971201) 0.0 See_Comment [Automated [employer]] The system which generated this result transmitted reference range: 0.0 - 10.0 /100 WBCs. The reference range was not used to interpret this result as normal/abnormal. NRBC x10^3 (test code = 9705512697) See_Comment [Automated messa ge] The system which generated this result transmitted reference range: 10*3/?L. The reference range was not used to interpret this result as normal/abnormal. GRAN MAT (NEUT) % (test code = 770-8) 68.6 % IMM GRAN % (test code = 9453892333) 0.70 % LYMPH % (test code = 736-9) 19.8 % MONO % (test code = 5905-5) 5.3 % EOS % (test code = 713-8) 5.1 % BASO % (test code = 706-2) 0.5 % GRAN MAT x10^3(ANC) (test code = 9053170567) 5.08 10*3/uL 1.88-7.09 IMM GRAN x10^3 (test code = 6584062747) 0.05 10*3/uL 0.00-0.06 LYMPH x10^3 (test code = 731-0) 1.47 10*3/uL 1.32-3.29 MONO x10^3 (test code = 742-7) 0.39 10*3/uL 0.33-0.92 EOS x10^3 (test code = 711-2) 0.38 10*3/uL 0.03-0.39 BASO x10^3 (test code = 704-7) 0.04 10*3/uL 0.01-0.07 Lab Interpretation (test code = 31237-8) Abnormal [facility] WITH [id number] 17:18:52* Test Item Value Reference Range Interpretation [...] g/dL 31.6-35.1 L RDW-SD (test code = 04261-2) 46.2 fL 39.0-49.9 RDW-CV (test code = 788-0) 17.9 % 12.0-15.5 H PLT (test code = 777-3) 304 See_Comment [Automated messa ge] The system which generated this result transmitted reference range: 166 - 358 10*3/?L. The reference range was not used to interpret this result as normal/abnormal. MPV (test code = 09152-8) 11.0 fL 9.5-12.9 NRBC/100 WBC (test code = 9385655666) 0.0 See_Comment [Automated [employer]] The system which generated this result transmitted reference range: 0.0 - 10.0 /100 WBCs. The reference range was not used to interpret this result as normal/abnormal. NRBC x10^3 (test code = 0489531605) See_Comment [Automated [employer] ge] The system which generated this result transmitted reference range: 10*3/?L. The reference range was not used to interpret this result as normal/abnormal. GRAN MAT (NEUT) % (test code = 770-8) 68.6 % IMM GRAN % (test code = 5160743939) 0.70 % LYMPH % (test code = 736-9) 19.8 % MONO % (test code = 5905-5) 5.3 % EOS % (test code = 713-8) 5.1 % BASO % (test code = 706-2) 0.5 % GRAN MAT x10^3(ANC) (test code = 1672348395) 5.08 10*3/uL 1.88-7.09 IMM GRAN x10^3 (test code = 1745993557) 0.05 10*3/uL 0.00-0.06 LYMPH x10^3 (test code = 731-0) 1.47 10*3/uL 1.32-3.29 MONO x10^3 (test code = 742-7) 0.39 10*3/uL 0.33-0.92 EOS x10^3 (test code = 711-2) 0.38 10*3/uL 0.03-0.39 BASO x10^3 (test code = 704-7) 0.04 10*3/uL 0.01-0.07 Lab Interpretation (test code = 80092-1) Abnormal [facility] WITH [id number] 17:18:52* Test Item Value Reference Range Interpretation Comme nts WBC (test code = 6690-2) 7.41 See_Comment [Automated [employer] ge] The system which generated this result transmitted reference range: 4.30 - 11.10 10*3/?L. The reference range was not used to interpret this result as normal/abnormal. RBC (test code = 789-8) 4.20 See_Comment [Automated [employer] ge] The system which generated this result [...] g/dL 31.6-35.1 L RDW-SD (test code = 22841-3) 46.2 fL 39.0-49.9 RDW-CV (test code = 788-0) 17.9 % 12.0-15.5 H PLT (test code = 777-3) 304 See_Comment [Automated messa ge] The system which generated this result transmitted reference range: 166 - 358 10*3/?L. The reference range was not used to interpret this result as normal/abnormal. MPV (test code = 38596-1) 11.0 fL 9.5-12.9 NRBC/100 WBC (test code = 0250281682) 0.0 See_Comment [Automated me ssage] The system which generated this result transmitted reference range: 0.0 - 10.0 /100 WBCs. The reference range was not used to interpret this result as normal/abnormal. NRBC x10^3 (test code = 5377384796) See_Comment [Automated messa ge] The system which generated this result transmitted reference range: 10*3/?L. The reference range was not used to interpret this result as normal/abnormal. GRAN MAT (NEUT) % (test code = 770-8) 68.6 % IMM GRAN % (test code = 2775101033) 0.70 % LYMPH % (test code = 736-9) 19.8 % MONO % (test code = 5905-5) 5.3 % EOS % (test code = 713-8) 5.1 % BASO % (test code = 706-2) 0.5 % GRAN MAT x10^3(ANC) (test code = 0652584648) 5.08 10*3/uL 1.88-7.09 IMM GRAN x10^3 (test code = 6503992971) 0.05 10*3/uL 0.00-0.06 LYMPH x10^3 (test code = 731-0) 1.47 10*3/uL 1.32-3.29 MONO x10^3 (test code = 742-7) 0.39 10*3/uL 0.33-0.92 EOS x10^3 (test code = 711-2) 0.38 10*3/uL 0.03-0.39 BASO x10^3 (test code = 704-7) 0.04 10*3/uL 0.01-0.07 Lab Interpretation (test code = 27232-5) Abnormal [facility] [id number] 16:24:00* Test Item Value Reference Range Interpretation Comme nts POCT PREG (test code = 1605) Negative On board controls acceptable with C Line (test code = 3574) Yes POCT PREG LOT # (test code = 3575) [id number] POCT PREG TEST DATE ( test code = 3576) 04-11-2024 Lab Interpretation (test cod e = 85108-1) Normal [facility] [id number] 16:24:00* Test Item Value Reference Range Interpretation Comme nts POCT PREG (test code = 1605) Negative On board controls acceptable with C Line (test code = 3574) Yes POCT PREG LOT # (test code = 3575) [id number] POCT PREG TEST DATE ( test code = 3576) 04-11-2024 Lab Interpretation (test cod e = 85950-5) Normal [facility] [id number] 16:24:00* Test Item Value Reference Range Interpretation Comme nts POCT PREG (test code = 1605) Negative On board controls acceptable with C Line (test code = 3574) Yes POCT PREG LOT # (test code = 3575) [id number] POCT PREG TEST DATE ( test code = 3576) 04-11-2024 Lab Interpretation (test cod e = 05888-8) Normal [facility] [id number] 16:24:00* Test Item Value Reference Range Interpretation Comme nts POCT PREG (test code = 1605) Negative On board controls acceptable with C Line (test code = 3574) Yes POCT PREG LOT # (test code = 3575) [id number] POCT PREG TEST DATE ( test code = 3576) 04-11-2024 Lab Interpretation (test cod e = 60707-6) Normal [facility] [id number] 16:24:00* Test Item Value Reference Range Interpretation Comme nts POCT PREG (test code = 1605) Negative On board controls acceptable with C Line (test code = 3574) Yes POCT PREG LOT # (test code = 3575) [id number] POCT PREG TEST DATE ( test code = 3576) 04-11-2024 Lab Interpretation (test cod e = 61254-0) [facility] [id number] 16:24:00* Test Item Value Reference Range Interpretation Comme nts POCT PREG (test code = 1605) Negative On board controls acceptable with C Line (test code = 3574) Yes POCT PREG LOT # (test code = 3575) [id number] POCT PREG TEST DATE ( test code = 3576) 04-11-2024 Lab Interpretation (test cod e = 39513-9) [facility] [id number] 16:24:00* Test Item Value Reference Range Interpretation Comme nts POCT PREG (test code = 1605) Negative On board controls acceptable with C Line (test code = 3574) Yes POCT PREG LOT # (test code = 3575) [id number] POCT PREG TEST DATE ( test code = 3576) 04-11-2024 Lab Interpretation (test cod e = 60506-3) [facility] [id number] 16:24:00* Test Item Value Reference Range Interpretation Comme nts POCT PREG (test code = 1605) Negative On board controls acceptable with C Line (test code = 3574) Yes POCT PREG LOT # (test code = 3575) [id number] POCT PREG TEST DATE ( test code = 3576) 04-11-2024 Lab Interpretation (test cod e = 67975-7) [facility] [id number] 16:24:00* Test Item Value Reference Range Interpretation Comme nts POCT PREG (test code = 1605) Negative On board controls acceptable with C Line (test code = 3574) Yes POCT PREG LOT # (test code = 3575) [id number] POCT PREG TEST DATE ( test code = 3576) 04-11-2024 Lab Interpretation (test cod e = 32995-0) [facility] [id number] 16:24:00* Test Item Value Reference Range Interpretation Comme nts POCT PREG (test code = 1605) Negative On board controls acceptable with C Line (test code = 3574) Yes POCT PREG LOT # (test code = 3575) [id number] POCT PREG TEST DATE ( test code = 3576) 04-11-2024 Lab Interpretation (test cod e = 27742-0) [facility] [id number] 16:24:00* Test Item Value Reference Range Interpretation Comme nts POCT PREG (test code = 1605) Negative On board controls acceptable with C Line (test code = 3574) Yes POCT PREG LOT # (test code = 3575) [id number] POCT PREG TEST DATE ( test code = 3576) 04-11-2024 Lab Interpretation (test cod e = 97208-4) [facility] [id number] 16:24:00* Test Item Value Reference Range Interpretation Comme nts POCT PREG (test code = 1605) Negative On board controls acceptable with C Line (test code = 3574) Yes POCT PREG LOT # (test code = 3575) [id number] POCT PREG TEST DATE ( test code = 3576) 04-11-2024 Lab Interpretation (test cod e = 17839-4) [facility] [id number] 16:24:00* Test Item Value Reference Range Interpretation Comme nts POCT PREG (test code = 1605) Negative On board controls acceptable with C Line (test code = 3574) Yes POCT PREG LOT # (test code = 3575) [id number] POCT PREG TEST DATE ( test code = 3576) 04-11-2024 Lab Interpretation (test cod e = 61701-9) [facility] [id number] 16:24:00* Test Item Value Reference Range Interpretation Comme nts POCT PREG (test code = 1605) Negative On board controls acceptable with C Line (test code = 3574) Yes POCT PREG LOT # (test code = 3575) 487092 POCT PREG TEST DATE ( test code = 3576) 04-11-2024 Lab Interpretation (test cod e = 41750-9) [facility] [id number] 16:24:00* Test Item Value Reference Range Interpretation Comme nts POCT PREG (test code = 1605) Negative On board controls acceptable with C Line (test code = 3574) Yes POCT PREG LOT # (test code = 3575) [id number] POCT PREG TEST DATE ( test code = 3576) 04-11-2024 Lab Interpretation (test cod e = 96703-7) [facility] [id number] 16:24:00* Test Item Value Reference Range Interpretation Comme nts POCT PREG (test code = 1605) Negative On board controls acceptable with C Line (test code = 3574) Yes POCT PREG LOT # (test code = 3575) 191719 POCT PREG TEST DATE ( test code = 3576) 04-11-2024 Lab Interpretation (test cod e = 80757-5) [facility] [id number] 16:24:00* Test Item Value Reference Range Interpretation Comme nts POCT PREG (test code = 1605) Negative On board controls acceptable with C Line (test code = 3574) Yes POCT PREG LOT # (test code = 3575) 625755 POCT PREG TEST DATE ( test code = 3576) 04-11-2024 Lab Interpretation (test cod e = 23520-9) [facility] [id number] 16:24:00* Test Item Value Reference Range Interpretation Comme nts POCT PREG (test code = 1605) Negative On board controls acceptable with C Line (test code = 3574) Yes POCT PREG LOT # (test code = 3575) 799905 POCT PREG TEST DATE ( test code = 357) 04-11-2024 Lab Interpretation (test cod e = 15469-0) Normal [facility] CELIAC SCREEN [id number] 19:09:14 * Test Item Value Reference Range Interpretation Comme nts Tissue Transglutaminase (tTG) Ab, IgA Interpretation (test code = 33520-3) Negative Negative Deamidated Gliadin Peptide (DGP) Ab, IgA Interpretation (test code = 78317-5) Negative Negative Tissue Transglutaminase (tTG) Ab, IgA (test code = 8506928415) <=7.0 Deamidated Gliadin Peptide (DGP) Ab, IgA (test code = 3364490957) 0.4 U/mL <=7.0 ZAINAB (test code = ZAINAB) < 7 U/mL ? Negative7 - 10 U/mL ?Equivocal> 10 U/mL ?Positive In case of equivocal results, we recommend to retest the patient after 8 -12 weeks. Lab Interpretation (test code = 58145-0) Normal [facility] CELIAC SCREEN [id number] 19:09:14 * Test Item Value Reference Range Interpretation Comme nts Tissue Transglutaminase (tTG) Ab, IgA Interpretation (test code = 01289-6) Negative Negative Deamidated Gliadin Peptide (DGP) Ab, IgA Interpretation (test code = 67701-5) Negative Negative Tissue Transglutaminase (tTG) Ab, IgA (test code = 0602122297) <=7.0 Deamidated Gliadin Peptide (DGP) Ab, IgA (test code = 6123034073) 0.4 U/mL <=7.0 ZAINAB (test code = ZAINAB) < 7 U/mL ? Negative7 - 10 U/mL ?Equivocal> 10 U/mL ?Positive In case of equivocal results, we recommend to retest the patient after 8 -12 weeks. Lab Interpretation (test code = 49413-7) Normal [facility] CELIAC SCREEN [id number] 19:09:14 * Test Item Value Reference Range Interpretation Comme nts Tissue Transglutaminase (tTG) Ab, IgA Interpretation (test code = 08899-4) Negative Negative Deamidated Gliadin Peptide (DGP) Ab, IgA Interpretation (test code = 33360-3) Negative Negative Tissue Transglutaminase (tTG) Ab, IgA (test code = 7422126567) <=7.0 Deamidated Gliadin Peptide (DGP) Ab, IgA (test code = 2228509626) 0.4 U/mL <=7.0 ZAINAB (test code = ZAINAB) < 7 U/mL ? Negative7 - 10 U/mL ?Equivocal> 10 U/mL ?Positive In case of equivocal results, we recommend to retest the patient after 8 -12 weeks. Lab Interpretation (test code = 33534-5) Normal [facility] CELIAC SCREEN [id number] 19:09:14 * Test Item Value Reference Range Interpretation Comme nts Tissue Transglutaminase (tTG) Ab, IgA Interpretation (test code = 36858-9) Negative Negative Deamidated Gliadin Peptide (DGP) Ab, IgA Interpretation (test code = 08772-5) Negative Negative Tissue Transglutaminase (tTG) Ab, IgA (test code = 3146255331) <=7.0 Deamidated Gliadin Peptide (DGP) Ab, IgA (test code = 9936068087) 0.4 U/mL <=7.0 ZAINAB (test code = ZAINAB) < 7 U/mL ? Negative7 - 10 U/mL ?Equivocal> 10 U/mL ?Positive In case of equivocal results, we recommend to retest the patient after 8 -12 weeks. Lab Interpretation (test code = 41112-0) Normal [facility] CELIAC SCREEN [id number] 19:09:14 * Test Item Value Reference Range Interpretation Comme nts Tissue Transglutaminase (tTG) Ab, IgA Interpretation (test code = 70889-2) Negative Negative Deamidated Gliadin Peptide (DGP) Ab, IgA Interpretation (test code = 69911-7) Negative Negative Tissue Transglutaminase (tTG) Ab, IgA (test code = 8709685591) <=7.0 Deamidated Gliadin Peptide (DGP) Ab, IgA (test code = 8166007044) 0.4 U/mL <=7.0 ZAINAB (test code = ZAINAB) < 7 U/mL ? Negative7 - 10 U/mL ?Equivocal> 10 U/mL ?Positive In case of equivocal results, we recommend to retest the patient after 8 -12 weeks. Lab Interpretation (test code = 12522-5) Normal [facility] CELIAC SCREEN [id number] 19:09:14 * Test Item Value Reference Range Interpretation Comme nts Tissue Transglutaminase (tTG) Ab, IgA Interpretation (test code = 92396-5) Negative Negative Deamidated Gliadin Peptide (DGP) Ab, IgA Interpretation (test code = 58535-7) Negative Negative Tissue Transglutaminase (tTG) Ab, IgA (test code = 8700004010) <=7.0 Deamidated Gliadin Peptide (DGP) Ab, IgA (test code = 9469725898) 0.4 U/mL <=7.0 ZAINAB (test code = ZAINAB) < 7 U/mL ? Negative7 - 10 U/mL ?Equivocal> 10 U/mL ?Positive In case of equivocal results, we recommend to retest the patient after 8 -12 weeks. Lab Interpretation (test code = 99853-8) Normal [facility] CELIAC SCREEN [id number] 19:09:14 * Test Item Value Reference Range Interpretation Comme nts Tissue Transglutaminase (tTG) Ab, IgA Interpretation (test code = 29185-5) Negative Negative Deamidated Gliadin Peptide (DGP) Ab, IgA Interpretation (test code = 51674-6) Negative Negative Tissue Transglutaminase (tTG) Ab, IgA (test code = 9819421550) <=7.0 Deamidated Gliadin Peptide (DGP) Ab, IgA (test code = 4482606626) 0.4 U/mL <=7.0 ZAINAB (test code = ZAINAB) < 7 U/mL ? Negative7 - 10 U/mL ?Equivocal> 10 U/mL ?Positive In case of equivocal results, we recommend to retest the patient after 8 -12 weeks. Lab Interpretation (test code = 18980-0) Normal [facility] CELIAC SCREEN [id number] 19:09:14 * Test Item Value Reference Range Interpretation Comme nts Tissue Transglutaminase (tTG) Ab, IgA Interpretation (test code = 88523-6) Negative Negative Deamidated Gliadin Peptide (DGP) Ab, IgA Interpretation (test code = 25431-2) Negative Negative Tissue Transglutaminase (tTG) Ab, IgA (test code = 6014878755) <=7.0 Deamidated Gliadin Peptide (DGP) Ab, IgA (test code = 8567078588) 0.4 U/mL <=7.0 ZAINAB (test code = ZAINAB) < 7 U/mL ? Negative7 - 10 U/mL ?Equivocal> 10 U/mL ?Positive In case of equivocal results, we recommend to retest the patient after 8 -12 weeks. Lab Interpretation (test code = 84516-0) Normal [facility] CELIAC SCREEN [id number] 19:09:14 * Test Item Value Reference Range Interpretation Comme nts Tissue Transglutaminase (tTG) Ab, IgA Interpretation (test code = 72833-1) Negative Negative Deamidated Gliadin Peptide (DGP) Ab, IgA Interpretation (test code = 86388-2) Negative Negative Tissue Transglutaminase (tTG) Ab, IgA (test code = 1943111742) <=7.0 Deamidated Gliadin Peptide (DGP) Ab, IgA (test code = 5754100754) 0.4 U/mL <=7.0 ZAINAB (test code = ZAINAB) < 7 U/mL ? Negative7 - 10 U/mL ?Equivocal> 10 U/mL ?Positive In case of equivocal results, we recommend to retest the patient after 8 -12 weeks. Lab Interpretation (test code = 46247-4) Normal [facility] ONLY CELIAC SCREEN [id number] 19:09:14 * Test Item Value Reference Range Interpretation Comme nts Tissue Transglutaminase (tTG) Ab, IgA Interpretation (test code = 53394-0) Negative Negative Deamidated Gliadin Peptide (DGP) Ab, IgA Interpretation (test code = 98974-9) Negative Negative Tissue Transglutaminase (tTG) Ab, IgA (test code = 8809688500) <=7.0 Deamidated Gliadin Peptide (DGP) Ab, IgA (test code = 1787778882) 0.4 U/mL <=7.0 ZAINAB (test code = ZAINAB) < 7 U/mL ? Negative7 - 10 U/mL ?Equivocal> 10 U/mL ?Positive In case of equivocal results, we recommend to retest the patient after 8 -12 weeks. Lab Interpretation (test code = 60751-1) Normal [facility] ONLY CELIAC SCREEN [id number] 19:09:14 * Test Item Value Reference Range Interpretation Comme nts Tissue Transglutaminase (tTG) Ab, IgA Interpretation (test code = 23643-9) Negative Negative Deamidated Gliadin Peptide (DGP) Ab, IgA Interpretation (test code = 63261-5) Negative Negative Tissue Transglutaminase (tTG) Ab, IgA (test code = 0517825046) <=7.0 Deamidated Gliadin Peptide (DGP) Ab, IgA (test code = 3953564631) 0.4 U/mL <=7.0 ZAINAB (test code = ZAINAB) < 7 U/mL ? Negative7 - 10 U/mL ?Equivocal> 10 U/mL ?Positive In case of equivocal results, we recommend to retest the patient after 8 -12 weeks. Lab Interpretation (test code = 95934-0) Normal [facility] ONLY CELIAC SCREEN [id number] 19:09:14 * Test Item Value Reference Range Interpretation Comme nts Tissue Transglutaminase (tTG) Ab, IgA Interpretation (test code = 61683-9) Negative Negative Deamidated Gliadin Peptide (DGP) Ab, IgA Interpretation (test code = 04585-8) Negative Negative Tissue Transglutaminase (tTG) Ab, IgA (test code = 0385664320) <=7.0 Deamidated Gliadin Peptide (DGP) Ab, IgA (test code = 1767994810) 0.4 U/mL <=7.0 ZAINAB (test code = ZAINAB) < 7 U/mL ? Negative7 - 10 U/mL ?Equivocal> 10 U/mL ?Positive In case of equivocal results, we recommend to retest the patient after 8 -12 weeks. Lab Interpretation (test code = 95532-4) [facility] [id number] 20:24:44* Test Item Value Reference Range Interpretation Comme nts Total IgA (test code = 9988953506) 78.3 U/mL 70-312 Lab Interpretation (test cod e = 18896-0) [facility]2023-09-07 20:24:44* Test Item Value Reference Range Interpretation Comme nts Total IgA (test code = 0291262663) 78.3 U/mL 70-312 Lab Interpretation (test cod e = 94110-1) [facility]2023-09-07 20:24:44* Test Item Value Reference Range Interpretation Comme nts Total IgA (test code = 1786844917) 78.3 U/mL 70-312 Lab Interpretation (test cod e = 67890-4) [facility]2023-09-07 20:24:44* Test Item Value Reference Range Interpretation Comme nts Total IgA (test code = 7582998261) 78.3 U/mL 70-312 Lab Interpretation (test cod e = 79488-0) [facility]2023-09-07 20:24:44* Test Item Value Reference Range Interpretation Comme nts Total IgA (test code = 2707134364) 78.3 U/mL 70-312 Lab Interpretation (test cod e = 10744-9) [facility]2023-09-07 20:24:44* Test Item Value Reference Range Interpretation Comme nts Total IgA (test code = 1294135790) 78.3 U/mL 70-312 Lab Interpretation (test cod e = 57544-5) [facility]2023-09-07 20:24:44* Test Item Value Reference Range Interpretation Comme nts Total IgA (test code = 0206857203) 78.3 U/mL 70-312 Lab Interpretation (test cod e = 64367-5) [facility]2023-09-07 20:24:44* Test Item Value Reference Range Interpretation Comme nts Total IgA (test code = 9456630097) 78.3 U/mL 70-312 Lab Interpretation (test cod e = 86247-3) [facility]2023-09-07 20:24:44* Test Item Value Reference Range Interpretation Comme nts Total IgA (test code = 9768004693) 78.3 U/mL 70-312 Lab Interpretation (test cod e = 24131-3) Normal [facility] [id number] 20:24:44* Test Item Value Reference Range Interpretation Comme nts Total IgA (test code = 2439347182) 78.3 U/mL 70-312 Lab Interpretation (test cod e = 06944-4) Normal [facility] [id number] 20:24:44* Test Item Value Reference Range Interpretation Comme nts Total IgA (test code = 8449573232) 78.3 U/mL 70-312 Lab Interpretation (test cod e = 66948-3) Normal [facility] [id number] 20:24:44* Test Item Value Reference Range Interpretation Comme nts Total IgA (test code = 9787415090) 78.3 U/mL 70-312 Lab Interpretation (test cod e = 94673-5) Normal [facility] [id number] 17:30:19* Test Item Value Reference Range Interpretation Comme nts FERRITIN (test code = 6842601765) 4.8 ng/mL 6.0-137.0 L ZAINAB (test code = ZAINAB) Biotin has been reported to cause a negative bias, interpret results relative to patient's use of biotin. Lab Interpretation (test code = 73335-5) Abnormal [facility] [id number] 17:30:19* Test Item Value Reference Range Interpretation Comme nts FERRITIN (test code = 8596258954) 4.8 ng/mL 6.0-137.0 L ZAINAB (test code = ZAINAB) Biotin has been reported to cause a negative bias, interpret results relative to patient's use of biotin. Lab Interpretation (test code = 95541-3) Abnormal [facility] [id number] 17:30:19* Test Item Value Reference Range Interpretation Comme nts FERRITIN (test code = 1127021694) 4.8 ng/mL 6.0-137.0 L ZAINAB (test code = ZAINAB) Biotin has been reported to cause a negative bias, interpret results relative to patient's use of biotin. Lab Interpretation (test code = 96561-7) Abnormal [facility] [id number] 17:30:19* Test Item Value Reference Range Interpretation Comme nts FERRITIN (test code = 6134822855) 4.8 ng/mL 6.0-137.0 L ZAINAB (test code = ZAINAB) Biotin has been reported to cause a negative bias, interpret results relative to patient's use of biotin. Lab Interpretation (test code = 90774-2) Abnormal [facility] [id number] 17:30:19* Test Item Value Reference Range Interpretation Comme nts FERRITIN (test code = 1979182315) 4.8 ng/mL 6.0-137.0 L ZAINAB (test code = ZAINAB) Biotin has been reported to cause a negative bias, interpret results relative to patient's use of biotin. Lab Interpretation (test code = 87074-5) Abnormal [facility] [id number] 17:30:19* Test Item Value Reference Range Interpretation Comme nts FERRITIN (test code = 2256620701) 4.8 ng/mL 6.0-137.0 L ZAINAB (test code = ZAINAB) Biotin has been reported to cause a negative bias, interpret results relative to patient's use of biotin. Lab Interpretation (test code = 91803-5) Abnormal [facility] [id number] 17:30:19* Test Item Value Reference Range Interpretation Comme nts FERRITIN (test code = 2234330944) 4.8 ng/mL 6.0-137.0 L ZAINAB (test code = ZAINAB) Biotin has been reported to cause a negative bias, interpret results relative to patient's use of biotin. Lab Interpretation (test code = 85498-9) Abnormal [facility] [id number] 17:30:19* Test Item Value Reference Range Interpretation Comme nts FERRITIN (test code = 0241056632) 4.8 ng/mL 6.0-137.0 L ZAINAB (test code = ZAINAB) Biotin has been reported to cause a negative bias, interpret results relative to patient's use of biotin. Lab Interpretation (test code = 23620-9) Abnormal [facility] [id number] 17:30:19* Test Item Value Reference Range Interpretation Comme nts FERRITIN (test code = 0502345063) 4.8 ng/mL 6.0-137.0 L ZAINAB (test code = ZAINAB) Biotin has been reported to cause a negative bias, interpret results relative to patient's use of biotin. Lab Interpretation (test code = 81694-1) [facility] [id number] 17:30:19* Test Item Value Reference Range Interpretation Comme nts FERRITIN (test code = 6050893060) 4.8 ng/mL 6.0-137.0 L ZAINAB (test code = ZAINAB) Biotin has been reported to cause a negative bias, interpret results relative to patient's use of biotin. Lab Interpretation (test code = 04520-7) [facility] [id number] 17:30:19* Test Item Value Reference Range Interpretation Comme nts FERRITIN (test code = 4403410437) 4.8 ng/mL 6.0-137.0 L ZAINAB (test code = ZAINAB) Biotin has been reported to cause a negative bias, interpret results relative to patient's use of biotin. Lab Interpretation (test code = 99961-8) Abnormal [facility] [id number] 17:30:19* Test Item Value Reference Range Interpretation Comme nts FERRITIN (test code = 2886841032) 4.8 ng/mL 6.0-137.0 L ZAINAB (test code = ZAINAB) Biotin has been reported to cause a negative bias, interpret results relative to patient's use of biotin. Lab Interpretation (test code = 59368-6) Abnormal [facility] [id number] 17:03:34* Test Item Value Reference Range Interpretation Comme nts IRON (test code = 2692677282) 34 ug/dL 50-160 L TIBC (test code = 0932035537) 515 ug/dL 250-410 H % FE SAT (test code = 4450595701) 7 % 20-50 L Lab Interpretation (test cod e = 06376-7) Abnormal [facility] [id number] 17:03:34* Test Item Value Reference Range Interpretation Comme nts IRON (test code = 1328950017) 34 ug/dL 50-160 L TIBC (test code = 8118547520) 515 ug/dL 250-410 H % FE SAT (test code = 4887157653) 7 % 20-50 L Lab Interpretation (test cod e = 53537-5) Abnormal [facility]2023-09-07 17:03:34* Test Item Value Reference Range Interpretation Comme nts IRON (test code = 9169869620) 34 ug/dL 50-160 L TIBC (test code = 7297451236) 515 ug/dL 250-410 H % FE SAT (test code = 5668438915) 7 % 20-50 L Lab Interpretation (test cod e = 94050-9) Abnormal [facility]2023-09-07 17:03:34* Test Item Value Reference Range Interpretation Comme nts IRON (test code = 0556301297) 34 ug/dL 50-160 L TIBC (test code = 9385105865) 515 ug/dL 250-410 H % FE SAT (test code = 6890640822) 7 % 20-50 L Lab Interpretation (test cod e = 50825-0) Abnormal [facility]2023-09-07 17:03:34* Test Item Value Reference Range Interpretation Comme nts IRON (test code = 2704847139) 34 ug/dL 50-160 L TIBC (test code = 8134594519) 515 ug/dL 250-410 H % FE SAT (test code = 6777126031) 7 % 20-50 L Lab Interpretation (test cod e = 53177-3) Abnormal [facility]2023-09-07 17:03:34* Test Item Value Reference Range Interpretation Comme nts IRON (test code = 2359235172) 34 ug/dL 50-160 L TIBC (test code = 1227869831) 515 ug/dL 250-410 H % FE SAT (test code = 0784682047) 7 % 20-50 L Lab Interpretation (test cod e = 68326-7) Abnormal [facility]2023-09-07 17:03:34* Test Item Value Reference Range Interpretation Comme nts IRON (test code = 3149308554) 34 ug/dL 50-160 L TIBC (test code = 5337302420) 515 ug/dL 250-410 H % FE SAT (test code = 1873196549) 7 % 20-50 L Lab Interpretation (test cod e = 85823-7) Abnormal [facility]2023-09-07 17:03:34* Test Item Value Reference Range Interpretation Comme nts IRON (test code = 6223768822) 34 ug/dL 50-160 L TIBC (test code = 5756552356) 515 ug/dL 250-410 H % FE SAT (test code = 0539041472) 7 % 20-50 L Lab Interpretation (test cod e = 79725-4) Abnormal [facility]2023-09-07 17:03:34* Test Item Value Reference Range Interpretation Comme nts IRON (test code = 0494116678) 34 ug/dL 50-160 L TIBC (test code = 5302761206) 515 ug/dL 250-410 H % FE SAT (test code = 5605217930) 7 % 20-50 L Lab Interpretation (test cod e = 05039-5) Abnormal [facility]2023-09-07 17:03:34* Test Item Value Reference Range Interpretation Comme nts IRON (test code = 1934923253) 34 ug/dL 50-160 L TIBC (test code = 7199482420) 515 ug/dL 250-410 H % FE SAT (test code = 9844660055) 7 % 20-50 L Lab Interpretation (test cod e = 75595-9) Abnormal [facility]2023-09-07 17:03:34* Test Item Value Reference Range Interpretation Comme nts IRON (test code = 3025211557) 34 ug/dL 50-160 L TIBC (test code = 3770012254) 515 ug/dL 250-410 H % FE SAT (test code = 0040612526) 7 % 20-50 L Lab Interpretation (test cod e = 88878-7) Abnormal [facility]2023-09-07 17:03:34* Test Item Value Reference Range Interpretation Comme nts IRON (test code = 0386097720) 34 ug/dL 50-160 L TIBC (test code = 2974042391) 515 ug/dL 250-410 H % FE SAT (test code = 1735477667) 7 % 20-50 L Lab Interpretation (test cod e = 06417-4) Abnormal [facility]2023-08-24 19:48:06* Test Item Value Reference Range Interpretation Comme nts [place] (test code = 1631060517) 0.5 mmol/L 0.6-1.2 L ZAINAB (test code = ZAINAB) Toxic Range: ? Greater than 1.2 mmol/L Lab Interpretation (test code = 70364-7) Abnormal [facility]2023-08-24 19:48:06* Test Item Value Reference Range Interpretation Comme nts [place] (test code = 7625577350) 0.5 mmol/L 0.6-1.2 L ZAINAB (test code = ZAINAB) Toxic Range: ? Greater than 1.2 mmol/L Lab Interpretation (test code = 88912-2) Abnormal [facility]2023-08-24 19:48:06* Test Item Value Reference Range Interpretation Comme nts [place] (test code = 9223335220) 0.5 mmol/L 0.6-1.2 L ZAINAB (test code = ZAINAB) Toxic Range: ? Greater than 1.2 mmol/L Lab Interpretation (test code = 73584-5) Abnormal [facility]2023-08-24 19:48:06* Test Item Value Reference Range Interpretation Comme nts [place] (test code = 1656361561) 0.5 mmol/L 0.6-1.2 L ZAINAB (test code = ZAINAB) Toxic Range: ? Greater than 1.2 mmol/L Lab Interpretation (test code = 74972-8) Abnormal [facility]2023-08-24 19:48:06* Test Item Value Reference Range Interpretation Comme nts [place] (test code = 3559287870) 0.5 mmol/L 0.6-1.2 L ZAINAB (test code = ZAINAB) Toxic Range: ? Greater than 1.2 mmol/L Lab Interpretation (test code = 75884-3) Abnormal [facility]2023-08-24 19:48:06* Test Item Value Reference Range Interpretation Comme nts [place] (test code = 0473152694) 0.5 mmol/L 0.6-1.2 L ZAINAB (test code = ZAINAB) Toxic Range: ? Greater than 1.2 mmol/L Lab Interpretation (test code = 26215-4) Abnormal [place] 96791-08-24 19:48:06* Test Item Value Reference Range Interpretation Comme nts [place] (test code = 0682947667) 0.5 mmol/L 0.6-1.2 L ZAINAB (test code = ZAINAB) Toxic Range: ? Greater than 1.2 mmol/L Lab Interpretation (test code = 67553-6) Abnormal [facility]2023-08-24 19:48:06* Test Item Value Reference Range Interpretation Comme nts [place] (test code = 2608255222) 0.5 mmol/L 0.6-1.2 L ZAINAB (test code = ZAINAB) Toxic Range: ? Greater than 1.2 mmol/L Lab Interpretation (test code = 38133-8) Abnormal [facility]2023-08-24 19:48:06* Test Item Value Reference Range Interpretation Comme nts [place] (test code = 3831975284) 0.5 mmol/L 0.6-1.2 L ZAINAB (test code = ZAINAB) Toxic Range: ? Greater than 1.2 mmol/L Lab Interpretation (test code = 51421-8) Abnormal [facility]2023-08-24 19:48:06* Test Item Value Reference Range Interpretation Comme nts [place] (test code = 0343437743) 0.5 mmol/L 0.6-1.2 L ZAINAB (test code = ZAINAB) Toxic Range: ? Greater than 1.2 mmol/L Lab Interpretation (test code = 11294-7) Abnormal [facility]2023-08-24 19:48:06* Test Item Value Reference Range Interpretation Comme nts [place] (test code = 9352357783) 0.5 mmol/L 0.6-1.2 L ZAINAB (test code = ZAINAB) Toxic Range: ? Greater than 1.2 mmol/L Lab Interpretation (test code = 86880-5) Abnormal [facility]2023-08-24 19:48:06* Test Item Value Reference Range Interpretation Comme nts [place] (test code = 6706021380) 0.5 mmol/L 0.6-1.2 L ZAINAB (test code = ZAINAB) Toxic Range: ? Greater than 1.2 mmol/L Lab Interpretation (test code = 05024-3) Abnormal [facility]2023-08-24 19:48:06* Test Item Value Reference Range Interpretation Comme nts [place] (test code = 0501898187) 0.5 mmol/L 0.6-1.2 L ZIANAB (test code = ZAINAB) Toxic Range: ? Greater than 1.2 mmol/L Lab Interpretation (test code = 06625-6) Abnormal [facility]2023-08-24 19:48:06* Test Item Value Reference Range Interpretation Comme nts [place] (test code = 9189324668) 0.5 mmol/L 0.6-1.2 L ZAINAB (test code = ZAINAB) Toxic Range: ? Greater than 1.2 mmol/L Lab Interpretation (test code = 63314-8) [facility] [id number] 17:24:34 * Test Item Value Reference Range Interpretation Comme nts TSH (test code = 8919751811) 1.07 See_Comment [Automated messa ge] The system which generated this result transmitted reference range: 0.45 - 4.70 mIU/L. The reference range was not used to interpret this result as normal/abnormal. Lab Interpretation (test code = 45751-8) [facility] [id number] 17:24:34 * Test Item Value Reference Range Interpretation Comme nts TSH (test code = 5730100679) 1.07 See_Comment [Automated messa ge] The system which generated this result transmitted reference range: 0.45 - 4.70 mIU/L. The reference range was not used to interpret this result as normal/abnormal. Lab Interpretation (test code = 54116-3) [facility] [id number] 17:24:34 * Test Item Value Reference Range Interpretation Comme nts TSH (test code = 0553388352) 1.07 See_Comment [Automated messa ge] The system which generated this result transmitted reference range: 0.45 - 4.70 mIU/L. The reference range was not used to interpret this result as normal/abnormal. Lab Interpretation (test code = 09573-6) [facility] [id number] 17:24:34 * Test Item Value Reference Range Interpretation Comme nts TSH (test code = 5003959885) 1.07 See_Comment [Automated messa ge] The system which generated this result transmitted reference range: 0.45 - 4.70 mIU/L. The reference range was not used to interpret this result as normal/abnormal. Lab Interpretation (test code = 23187-2) [facility] [id number] 17:24:34 * Test Item Value Reference Range Interpretation Comme nts TSH (test code = 0996808127) 1.07 See_Comment [Automated messa ge] The system which generated this result transmitted reference range: 0.45 - 4.70 mIU/L. The reference range was not used to interpret this result as normal/abnormal. Lab Interpretation (test code = 70283-8) [facility] [id number] 17:24:34 * Test Item Value Reference Range Interpretation Comme nts TSH (test code = 1570669362) 1.07 See_Comment [Automated messa ge] The system which generated this result transmitted reference range: 0.45 - 4.70 mIU/L. The reference range was not used to interpret this result as normal/abnormal. Lab Interpretation (test code = 81531-3) [facility] [id number] 17:24:34 * Test Item Value Reference Range Interpretation Comme nts TSH (test code = 3530455764) 1.07 See_Comment [Automated messa ge] The system which generated this result transmitted reference range: 0.45 - 4.70 mIU/L. The reference range was not used to interpret this result as normal/abnormal. Lab Interpretation (test code = 97074-4) [facility] [id number] 17:24:34 * Test Item Value Reference Range Interpretation Comme nts TSH (test code = 4714446483) 1.07 See_Comment [Automated messa ge] The system which generated this result transmitted reference range: 0.45 - 4.70 mIU/L. The reference range was not used to interpret this result as normal/abnormal. Lab Interpretation (test code = 16426-4) [facility] [id number] 17:24:34 * Test Item Value Reference Range Interpretation Comme nts TSH (test code = 8524246513) 1.07 See_Comment [Automated messa ge] The system which generated this result transmitted reference range: 0.45 - 4.70 mIU/L. The reference range was not used to interpret this result as normal/abnormal. Lab Interpretation (test code = 93381-4) [facility] [id number] 17:24:34 * Test Item Value Reference Range Interpretation Comme nts TSH (test code = 7412717074) 1.07 See_Comment [Automated messa ge] The system which generated this result transmitted reference range: 0.45 - 4.70 mIU/L. The reference range was not used to interpret this result as normal/abnormal. Lab Interpretation (test code = 03518-5) [facility] [id number] 17:24:34 * Test Item Value Reference Range Interpretation Comme nts TSH (test code = 0667993729) 1.07 See_Comment [Automated messa ge] The system which generated this result transmitted reference range: 0.45 - 4.70 mIU/L. The reference range was not used to interpret this result as normal/abnormal. Lab Interpretation (test code = 28451-4) [facility] [id number] 17:24:34 * Test Item Value Reference Range Interpretation Comme nts TSH (test code = 0228539105) 1.07 See_Comment [Automated messa ge] The system which generated this result transmitted reference range: 0.45 - 4.70 mIU/L. The reference range was not used to interpret this result as normal/abnormal. Lab Interpretation (test code = 68458-8) [facility] [id number] 17:24:34 * Test Item Value Reference Range Interpretation Comme nts TSH (test code = 5583536692) 1.07 See_Comment [Automated messa ge] The system which generated this result transmitted reference range: 0.45 - 4.70 mIU/L. The reference range was not used to interpret this result as normal/abnormal. Lab Interpretation (test code = 46437-6) [facility] [id number] 17:24:34 * Test Item Value Reference Range Interpretation Comme nts TSH (test code = 1857928627) 1.07 See_Comment [Automated [place] ge] The system which generated this result transmitted reference range: 0.45 - 4.70 mIU/L. The reference range was not used to interpret this result as normal/abnormal. Lab Interpretation (test code = 38793-0) Normal [facility]. METABOLIC PANEL (91320)2022-10-05 16:54:48* Test Item Value Reference Range Interpretation Comme nts NA (test code = 5878016315) 140 mmol/L 135-145 K (test code = 7400163038) 4.6 mmol/L 3.5-5.0 CL (test code = 5434419201) 106 mmol/L 98-108 CO2 TOTAL (test code = 9056665707) 28 mmol/L 23-31 AGAP (test code = 6625313254) 6 2-16 BUN (test code = 2721734295) 5 mg/dL 7-23 L GLUCOSE (test code = 1095885209) 90 mg/dL 70-110 CREATININE (test code = 8255016731) 0.54 mg/dL 0.50-1.04 TOTAL BILI (test code = 5940808955) 0.1 mg/dL 0.1-1.1 CALCIUM (test code = 2303549127) 9.6 mg/dL 8.6-10.6 T PROTEIN (test code = 0484000979) 6.2 g/dL 6.3-8.2 L ALBUMIN (test code = 7087285066) 4.0 g/dL 3.5-5.0 ALK PHOS (test code = 5386697794) 125 U/L 34-122 H ALTv (test code = 1742-6) 29 U/L 5-35 AST(SGOT) (test code = 0199240734) 24 U/L 13-40 eGFR (test code = 6613202505) 122.1 mL/min/1.73m2 ZAINAB (test code = ZAINAB) [...] imaging tests). Lab Interpretation (test code = 88054-8) Abnormal [facility] [id number]TOTAL CHOLESTEROL, TRIGLYCERIDES, HDL)2022-10-05 16:54:48* Test Item Value Reference Range Interpretation Comme nts CHOL (test code = 1692258859) 183 mg/dL 120-200 HDL (test code = 9475084918) 40 mg/dL >=50 L HDLC RATIO (test code = 2262115319) 4.6 <=4.5 H TRIG (test code = 4562220622) 128 mg/dL 30-170 LDL CHOL (test code = 07476-2) 117 mg/dL <=160 VLDL (test code = 7477167742) 26 mg/dL 5-60 Lab Interpretation (test cod e = 71321-2) [facility] ([id number])2022-10-05 16:54:48* Test Item Value Reference Range Interpretation Comme nts NA (test code = 0525398759) 140 mmol/L 135-145 K (test code = 1746602917) 4.6 mmol/L 3.5-5.0 CL (test code = 7479620910) 106 mmol/L 98-108 CO2 TOTAL (test code = 3402262800) 28 mmol/L 23-31 AGAP (test code = 0552368833) 6 2-16 BUN (test code = 7684052673) 5 mg/dL 7-23 L GLUCOSE (test code = 0544379686) 90 mg/dL 70-110 CREATININE (test code = 0220662148) 0.54 mg/dL 0.50-1.04 TOTAL BILI (test code = 8996559128) 0.1 mg/dL 0.1-1.1 CALCIUM (test code = 5898683039) 9.6 mg/dL 8.6-10.6 T PROTEIN (test code = 6533202942) 6.2 g/dL 6.3-8.2 L ALBUMIN (test code = 1370837756) 4.0 g/dL 3.5-5.0 ALK PHOS (test code = 7515714968) 125 U/L 34-122 H ALTv (test code = 1742-6) 29 U/L 5-35 AST(SGOT) (test code = 3710231753) 24 U/L 13-40 eGFR (test code = 5217868970) 122.1 mL/min/1.73m2 ZAINAB (test code = ZAINAB) [...] imaging tests). Lab Interpretation (test code = 41667-4) [facility] [place] ([id number])(TOTAL CHOLESTEROL, TRIGLYCERIDES, HDL)2022-10-05 16:54:48* Test Item Value Reference Range Interpretation Comme nts CHOL (test code = 7435446267) 183 mg/dL 120-200 HDL (test code = 1065796272) 40 mg/dL >=50 L HDLC RATIO (test code = 2933606415) 4.6 <=4.5 H TRIG (test code = 7092993657) 128 mg/dL 30-170 LDL CHOL (test code = 44093-9) 117 mg/dL <=160 VLDL (test code = 5552813896) 26 mg/dL 5-60 Lab Interpretation (test cod e = 63693-7) [facility] [place] ([id number])2022-10-05 16:54:48* Test Item Value Reference Range Interpretation Comme nts NA (test code = 9376851050) 140 mmol/L 135-145 K (test code = 2739021531) 4.6 mmol/L 3.5-5.0 CL (test code = 5395118337) 106 mmol/L 98-108 CO2 TOTAL (test code = 3696124299) 28 mmol/L 23-31 AGAP (test code = 3700674905) 6 2-16 BUN (test code = 6635293686) 5 mg/dL 7-23 L GLUCOSE (test code = 9672568037) 90 mg/dL 70-110 CREATININE (test code = 9109600795) 0.54 mg/dL 0.50-1.04 TOTAL BILI (test code = 2435636482) 0.1 mg/dL 0.1-1.1 CALCIUM (test code = 8418367379) 9.6 mg/dL 8.6-10.6 T PROTEIN (test code = 1580176194) 6.2 g/dL 6.3-8.2 L ALBUMIN (test code = 6466520929) 4.0 g/dL 3.5-5.0 ALK PHOS (test code = 4415999407) 125 U/L 34-122 H ALTv (test code = 1742-6) 29 U/L 5-35 AST(SGOT) (test code = 6339807277) 24 U/L 13-40 eGFR (test code = 0899967700) 122.1 mL/min/1.73m2 ZAINAB (test code = ZAINAB) [...] imaging tests). Lab Interpretation (test code = 27988-3) [id number]TOTAL CHOLESTEROL, TRIGLYCERIDES, HDL)2022-10-05 16:54:48* Test Item Value Reference Range Interpretation Comme nts CHOL (test code = 4107874480) 183 mg/dL 120-200 HDL (test code = 0170931216) 40 mg/dL >=50 L HDLC RATIO (test code = 5904162927) 4.6 <=4.5 H TRIG (test code = 3311514071) 128 mg/dL 30-170 LDL CHOL (test code = 07477-1) 117 mg/dL <=160 VLDL (test code = 9847254589) 26 mg/dL 5-60 Lab Interpretation (test cod e = 39735-7) [facility] [place] ([id number])(TOTAL CHOLESTEROL, TRIGLYCERIDES, HDL)2022-10-05 16:54:48* Test Item Value Reference Range Interpretation Comme nts CHOL (test code = 2547954591) 183 mg/dL 120-200 HDL (test code = 6331973121) 40 mg/dL >=50 L HDLC RATIO (test code = 2075712840) 4.6 <=4.5 H TRIG (test code = 0851468568) 128 mg/dL 30-170 LDL CHOL (test code = 79861-3) 117 mg/dL <=160 VLDL (test code = 9754137613) 26 mg/dL 5-60 Lab Interpretation (test cod e = 84441-0) [facility] [place] (48014)(TOTAL CHOLESTEROL, TRIGLYCERIDES, HDL)2022-10-05 16:54:48* Test Item Value Reference Range Interpretation Comme nts CHOL (test code = 4494710802) 183 mg/dL 120-200 HDL (test code = 6370927913) 40 mg/dL >=50 L HDLC RATIO (test code = 5808762223) 4.6 <=4.5 H TRIG (test code = 5268388097) 128 mg/dL 30-170 LDL CHOL (test code = 86888-0) 117 mg/dL <=160 VLDL (test code = 4772662879) 26 mg/dL 5-60 Lab Interpretation (test cod e = 47242-5) [facility] [place] (06018)(TOTAL CHOLESTEROL, TRIGLYCERIDES, HDL)2022-10-05 16:54:48* Test Item Value Reference Range Interpretation Comme nts CHOL (test code = 7750474305) 183 mg/dL 120-200 HDL (test code = 2015722797) 40 mg/dL >=50 L HDLC RATIO (test code = 0280812325) 4.6 <=4.5 H TRIG (test code = 6032166852) 128 mg/dL 30-170 LDL CHOL (test code = 70296-6) 117 mg/dL <=160 VLDL (test code = 9697195660) 26 mg/dL 5-60 Lab Interpretation (test cod e = 79076-5) [facility] [place] ([id number])(TOTAL CHOLESTEROL, TRIGLYCERIDES, HDL)2022-10-05 16:54:48* Test Item Value Reference Range Interpretation Comme nts CHOL (test code = 8772260467) 183 mg/dL 120-200 HDL (test code = 8060431100) 40 mg/dL >=50 L HDLC RATIO (test code = 2111388446) 4.6 <=4.5 H TRIG (test code = 2244890655) 128 mg/dL 30-170 LDL CHOL (test code = 67509-2) 117 mg/dL <=160 VLDL (test code = 7868353143) 26 mg/dL 5-60 Lab Interpretation (test cod e = 37635-6) [facility] [place] (83978)(TOTAL CHOLESTEROL, TRIGLYCERIDES, HDL)2022-10-05 16:54:48* Test Item Value Reference Range Interpretation Comme nts CHOL (test code = 7533911009) 183 mg/dL 120-200 HDL (test code = 2069328099) 40 mg/dL >=50 L HDLC RATIO (test code = 1548725399) 4.6 <=4.5 H TRIG (test code = 4149260160) 128 mg/dL 30-170 LDL CHOL (test code = 87723-1) 117 mg/dL <=160 VLDL (test code = 8926097551) 26 mg/dL 5-60 Lab Interpretation (test cod e = 53374-6) [facility] [place] ([id number])(TOTAL CHOLESTEROL, TRIGLYCERIDES, HDL)2022-10-05 16:54:48* Test Item Value Reference Range Interpretation Comme nts CHOL (test code = 2214357125) 183 mg/dL 120-200 HDL (test code = 9912521120) 40 mg/dL >=50 L HDLC RATIO (test code = 5245162365) 4.6 <=4.5 H TRIG (test code = 0977300757) 128 mg/dL 30-170 LDL CHOL (test code = 95578-6) 117 mg/dL <=160 VLDL (test code = 0249575829) 26 mg/dL 5-60 Lab Interpretation (test cod e = 57013-8) [facility] [place] (18479)(TOTAL CHOLESTEROL, TRIGLYCERIDES, HDL)2022-10-05 16:54:48* Test Item Value Reference Range Interpretation Comme nts CHOL (test code = 1564536872) 183 mg/dL 120-200 HDL (test code = 1810024171) 40 mg/dL >=50 L HDLC RATIO (test code = 0228357095) 4.6 <=4.5 H TRIG (test code = 4273739273) 128 mg/dL 30-170 LDL CHOL (test code = 15928-0) 117 mg/dL <=160 VLDL (test code = 3892865629) 26 mg/dL 5-60 Lab Interpretation (test cod e = 99794-4) [facility] [place] (29039)(TOTAL CHOLESTEROL, TRIGLYCERIDES, HDL)2022-10-05 16:54:48* Test Item Value Reference Range Interpretation Comme nts CHOL (test code = 3303010374) 183 mg/dL 120-200 HDL (test code = 6560556377) 40 mg/dL >=50 L HDLC RATIO (test code = 3646857587) 4.6 <=4.5 H TRIG (test code = 6604451970) 128 mg/dL 30-170 LDL CHOL (test code = 08828-9) 117 mg/dL <=160 VLDL (test code = 7420533461) 26 mg/dL 5-60 Lab Interpretation (test cod e = 07956-6) [facility] [place] ([id number])(TOTAL CHOLESTEROL, TRIGLYCERIDES, HDL)2022-10-05 16:54:48* Test Item Value Reference Range Interpretation Comme nts CHOL (test code = 8902340306) 183 mg/dL 120-200 HDL (test code = 2148177446) 40 mg/dL >=50 L HDLC RATIO (test code = 0287128215) 4.6 <=4.5 H TRIG (test code = 9298592539) 128 mg/dL 30-170 LDL CHOL (test code = 46290-7) 117 mg/dL <=160 VLDL (test code = 3876843998) 26 mg/dL 5-60 Lab Interpretation (test cod e = 33496-1) [facility]normal [facility] [place] (60322)(TOTAL CHOLESTEROL, TRIGLYCERIDES, HDL)2022-10-05 16:54:48* Test Item Value Reference Range Interpretation Comme nts CHOL (test code = 0166375232) 183 mg/dL 120-200 HDL (test code = 9007902289) 40 mg/dL >=50 L HDLC RATIO (test code = 9546511008) 4.6 <=4.5 H TRIG (test code = 5359454944) 128 mg/dL 30-170 LDL CHOL (test code = 82416-1) 117 mg/dL <=160 VLDL (test code = 5178325167) 26 mg/dL 5-60 Lab Interpretation (test cod e = 73567-8) [facility] [place] (66814)(TOTAL CHOLESTEROL, TRIGLYCERIDES, HDL)2022-10-05 16:54:48* Test Item Value Reference Range Interpretation Comme nts CHOL (test code = 0479121806) 183 mg/dL 120-200 HDL (test code = 0828540665) 40 mg/dL >=50 L HDLC RATIO (test code = 3493144836) 4.6 <=4.5 H TRIG (test code = 1182210407) 128 mg/dL 30-170 LDL CHOL (test code = 91815-8) 117 mg/dL <=160 VLDL (test code = 7299754395) 26 mg/dL 5-60 Lab Interpretation (test cod e = 42668-8) [facility]normal [facility]A1C[facility]2022-10-05 15:51:11* Test Item Value Reference Range Interpretation Comme nts HGB A1C (test code = 4548-4) 5.1 % 4.0-5.7 ZAINAB (test code = ZAINAB) Reference RangesNormal: <5.7%Prediabetes: 5.7 - 6.4%Diabetes: > 6.5% Lab Interpretation (test code = 05374-0) [facility] 15:51:11* Test Item Value Reference Range Interpretation Comme nts HGB A1C (test code = 4548-4) 5.1 % 4.0-5.7 ZAINAB (test code = ZAINAB) Reference RangesNormal: <5.7%Prediabetes: 5.7 - 6.4%Diabetes: > 6.5% Lab Interpretation (test code = 09349-4) [facility] 15:51:11* Test Item Value Reference Range Interpretation Comme nts HGB A1C (test code = 4548-4) 5.1 % 4.0-5.7 ZAINAB (test code = ZAINAB) Reference RangesNormal: <5.7%Prediabetes: 5.7 - 6.4%Diabetes: > 6.5% Lab Interpretation (test code = 67595-7) [facility] 15:51:11* Test Item Value Reference Range Interpretation Comme nts HGB A1C (test code = 4548-4) 5.1 % 4.0-5.7 ZAINAB (test code = ZAINAB) Reference RangesNormal: <5.7%Prediabetes: 5.7 - 6.4%Diabetes: > 6.5% Lab Interpretation (test code = 90864-2) [facility] 15:51:11* Test Item Value Reference Range Interpretation Comme nts HGB A1C (test code = 4548-4) 5.1 % 4.0-5.7 ZAINAB (test code = ZAINAB) Reference RangesNormal: <5.7%Prediabetes: 5.7 - 6.4%Diabetes: > 6.5% Lab Interpretation (test code = 22041-8) [facility] 15:51:11* Test Item Value Reference Range Interpretation Comme nts HGB A1C (test code = 4548-4) 5.1 % 4.0-5.7 ZAINAB (test code = ZAINAB) Reference RangesNormal: <5.7%Prediabetes: 5.7 - 6.4%Diabetes: > 6.5% Lab Interpretation (test code = 33099-8) [facility] 15:51:11* Test Item Value Reference Range Interpretation Comme nts HGB A1C (test code = 4548-4) 5.1 % 4.0-5.7 ZAINAB (test code = ZAINAB) Reference RangesNormal: <5.7%Prediabetes: 5.7 - 6.4%Diabetes: > 6.5% Lab Interpretation (test code = 64415-3) [facility] 15:51:11* Test Item Value Reference Range Interpretation Comme nts HGB A1C (test code = 4548-4) 5.1 % 4.0-5.7 ZAINAB (test code = ZAINAB) Reference RangesNormal: <5.7%Prediabetes: 5.7 - 6.4%Diabetes: > 6.5% Lab Interpretation (test code = 74378-8) [facility]05 15:51:11* Test Item Value Reference Range Interpretation Comme nts HGB A1C (test code = 4548-4) 5.1 % 4.0-5.7 ZAINAB (test code = ZAINAB) Reference RangesNormal: <5.7%Prediabetes: 5.7 - 6.4%Diabetes: > 6.5% Lab Interpretation (test code = 98097-5) [facility] 15:51:11* Test Item Value Reference Range Interpretation Comme nts HGB A1C (test code = 4548-4) 5.1 % 4.0-5.7 ZAINAB (test code = ZAINAB) Reference RangesNormal: <5.7%Prediabetes: 5.7 - 6.4%Diabetes: > 6.5% Lab Interpretation (test code = 05446-9) [facility] 15:51:11* Test Item Value Reference Range Interpretation Comme nts HGB A1C (test code = 4548-4) 5.1 % 4.0-5.7 ZAINAB (test code = ZAINAB) Reference RangesNormal: <5.7%Prediabetes: 5.7 - 6.4%Diabetes: > 6.5% Lab Interpretation (test code = 68219-7) Normal [facility]2022-10-05 15:51:11* Test Item Value Reference Range Interpretation Comme nts HGB A1C (test code = 4548-4) 5.1 % 4.0-5.7 ZAINAB (test code = ZAINAB) Reference RangesNormal: <5.7%Prediabetes: 5.7 - 6.4%Diabetes: > 6.5% Lab Interpretation (test code = 63520-3) [facility] 15:51:11* Test Item Value Reference Range Interpretation Comme nts HGB A1C (test code = 4548-4) 5.1 % 4.0-5.7 ZAINAB (test code = ZAINAB) Reference RangesNormal: <5.7%Prediabetes: 5.7 - 6.4%Diabetes: > 6.5% Lab Interpretation (test code = 48449-2) [facility] 15:51:11* Test Item Value Reference Range Interpretation Comme nts HGB A1C (test code = 4548-4) 5.1 % 4.0-5.7 ZAINAB (test code = ZAINAB) Reference RangesNormal: <5.7%Prediabetes: 5.7 - 6.4%Diabetes: > 6.5% Lab Interpretation (test code = 06539-3) [facility] [id number] 15:20:32* Test Item Value Reference Range Interpretation [...] g/dL 31.6-35.1 L RDW-SD (test code = 83928-4) 47.8 fL 39.0-49.9 RDW-CV (test code = 788-0) 18.0 % 12.0-15.5 H PLT (test code = 777-3) 296 See_Comment [Automated [employer]] The system which generated this result transmitted reference range: 166 - 358 10*3/?L. The reference range was not used to interpret this result as normal/abnormal. MPV (test code = 64716-4) 10.7 fL 9.5-12.9 NRBC/100 WBC (test code = 6165006141) 0.0 See_Comment [Automated [employer]] The system which generated this result transmitted reference range: 0.0 - 10.0 /100 WBCs. The reference range was not used to interpret this result as normal/abnormal. NRBC x10^3 (test code = 6153741176) See_Comment [Automated [employer]] The system which generated this result transmitted reference range: 10*3/?L. The reference range was not used to interpret this result as normal/abnormal. GRAN MAT (NEUT) % (test code = 770-8) 70.0 % IMM GRAN % (test code = 8084506381) 0.40 % LYMPH % (test code = 736-9) 18.7 % MONO % (test code = 5905-5) 5.7 % EOS % (test code = 713-8) 4.5 % BASO % (test code = 706-2) 0.7 % GRAN MAT x10^3(ANC) (test code = 0480090858) 4.66 10*3/uL 1.88-7.09 IMM GRAN x10^3 (test code = 8744328095) 0.03 10*3/uL 0.00-0.06 LYMPH x10^3 (test code = 731-0) 1.25 10*3/uL 1.32-3.29 L MONO x10^3 (test code = 742-7) 0.38 10*3/uL 0.33-0.92 EOS x10^3 (test code = 711-2) 0.30 10*3/uL 0.03-0.39 BASO x10^3 (test code = 704-7) 0.05 10*3/uL 0.01-0.07 Lab Interpretation (test code = 61604-9) Abnormal [facility] WITH [id number] 15:20:32* Test Item Value Reference Range Interpretation Comme nts WBC (test code = 6690-2) 6.67 See_Comment [Automated [employer] ge] The system which generated this result transmitted reference range: 4.30 - 11.10 10*3/?L. The reference range was not used to interpret this result as normal/abnormal. RBC (test code = 789-8) 4.04 See_Comment [Automated [employer] ge] The system which generated this result [...] g/dL 31.6-35.1 L RDW-SD (test code = 21825-4) 47.8 fL 39.0-49.9 RDW-CV (test code = 788-0) 18.0 % 12.0-15.5 H PLT (test code = 777-3) 296 See_Comment [Automated messa ge] The system which generated this result transmitted reference range: 166 - 358 10*3/?L. The reference range was not used to interpret this result as normal/abnormal. MPV (test code = 08290-2) 10.7 fL 9.5-12.9 NRBC/100 WBC (test code = 6891319402) 0.0 See_Comment [Automated [employer]] The system which generated this result transmitted reference range: 0.0 - 10.0 /100 WBCs. The reference range was not used to interpret this result as normal/abnormal. NRBC x10^3 (test code = 9213915330) See_Comment [Automated messa ge] The system which generated this result transmitted reference range: 10*3/?L. The reference range was not used to interpret this result as normal/abnormal. GRAN MAT (NEUT) % (test code = 770-8) 70.0 % IMM GRAN % (test code = 0501254528) 0.40 % LYMPH % (test code = 736-9) 18.7 % MONO % (test code = 5905-5) 5.7 % EOS % (test code = 713-8) 4.5 % BASO % (test code = 706-2) 0.7 % GRAN MAT x10^3(ANC) (test code = 0211277304) 4.66 10*3/uL 1.88-7.09 IMM GRAN x10^3 (test code = 3763619801) 0.03 10*3/uL 0.00-0.06 LYMPH x10^3 (test code = 731-0) 1.25 10*3/uL 1.32-3.29 L MONO x10^3 (test code = 742-7) 0.38 10*3/uL 0.33-0.92 EOS x10^3 (test code = 711-2) 0.30 10*3/uL 0.03-0.39 BASO x10^3 (test code = 704-7) 0.05 10*3/uL 0.01-0.07 Lab Interpretation (test code = 18607-4) Abnormal [facility] WITH [id number] 15:20:32* Test Item Value Reference Range Interpretation [...] g/dL 31.6-35.1 L RDW-SD (test code = 87879-5) 47.8 fL 39.0-49.9 RDW-CV (test code = 788-0) 18.0 % 12.0-15.5 H PLT (test code = 777-3) 296 See_Comment [Automated messa ge] The system which generated this result transmitted reference range: 166 - 358 10*3/?L. The reference range was not used to interpret this result as normal/abnormal. MPV (test code = 56117-7) 10.7 fL 9.5-12.9 NRBC/100 WBC (test code = 7163327015) 0.0 See_Comment [Automated [employer]] The system which generated this result transmitted reference range: 0.0 - 10.0 /100 WBCs. The reference range was not used to interpret this result as normal/abnormal. NRBC x10^3 (test code = 6841768385) See_Comment [Automated messa ge] The system which generated this result transmitted reference range: 10*3/?L. The reference range was not used to interpret this result as normal/abnormal. GRAN MAT (NEUT) % (test code = 770-8) 70.0 % IMM GRAN % (test code = 0962550618) 0.40 % LYMPH % (test code = 736-9) 18.7 % MONO % (test code = 5905-5) 5.7 % EOS % (test code = 713-8) 4.5 % BASO % (test code = 706-2) 0.7 % GRAN MAT x10^3(ANC) (test code = 2997940173) 4.66 10*3/uL 1.88-7.09 IMM GRAN x10^3 (test code = 3001944384) 0.03 10*3/uL 0.00-0.06 LYMPH x10^3 (test code = 731-0) 1.25 10*3/uL 1.32-3.29 L MONO x10^3 (test code = 742-7) 0.38 10*3/uL 0.33-0.92 EOS x10^3 (test code = 711-2) 0.30 10*3/uL 0.03-0.39 BASO x10^3 (test code = 704-7) 0.05 10*3/uL 0.01-0.07 Lab Interpretation (test code = 12296-6) Abnormal [facility]2023-06-14 17:27:33* Test Item Value Reference Range Interpretation Comme nts [place] (test code = 2787104319) 0.3 mmol/L 0.6-1.2 L ZAINAB (test code = ZAINAB) Toxic Range: ? Greater than 1.2 mmol/L Lab Interpretation (test code = 13272-2) Abnormal [facility]2023-06-14 17:27:33* Test Item Value Reference Range Interpretation Comme nts [place] (test code = 7556190111) 0.3 mmol/L 0.6-1.2 L ZAINAB (test code = ZAINAB) Toxic Range: ? Greater than 1.2 mmol/L Lab Interpretation (test code = 95576-2) Abnormal [facility]2023-06-14 17:27:33* Test Item Value Reference Range Interpretation Comme nts [place] (test code = 6461172193) 0.3 mmol/L 0.6-1.2 L ZAINAB (test code = ZAINAB) Toxic Range: ? Greater than 1.2 mmol/L Lab Interpretation (test code = 62146-2) Abnormal [facility]2023-06-14 17:27:33* Test Item Value Reference Range Interpretation Comme nts [place] (test code = 2313753319) 0.3 mmol/L 0.6-1.2 L ZAINAB (test code = ZAINAB) Toxic Range: ? Greater than 1.2 mmol/L Lab Interpretation (test code = 39096-2) Abnormal [facility]2023-06-14 17:27:33* Test Item Value Reference Range Interpretation Comme nts [place] (test code = 4110728394) 0.3 mmol/L 0.6-1.2 L ZAINAB (test code = ZAINAB) Toxic Range: ? Greater than 1.2 mmol/L Lab Interpretation (test code = 62519-2) Abnormal [facility]2023-06-14 17:27:33* Test Item Value Reference Range Interpretation Comme nts [place] (test code = 5890440382) 0.3 mmol/L 0.6-1.2 L ZAINAB (test code = ZAINAB) Toxic Range: ? Greater than 1.2 mmol/L Lab Interpretation (test code = 79646-8) Abnormal [facility]2023-06-14 17:27:33* Test Item Value Reference Range Interpretation Comme nts [place] (test code = 1964930541) 0.3 mmol/L 0.6-1.2 L ZAINAB (test code = ZAINAB) Toxic Range: ? Greater than 1.2 mmol/L Lab Interpretation (test code = 92358-9) Abnormal [facility]2023-06-14 17:27:33* Test Item Value Reference Range Interpretation Comme nts [place] (test code = 3314051886) 0.3 mmol/L 0.6-1.2 L ZAINAB (test code = ZAINAB) Toxic Range: ? Greater than 1.2 mmol/L Lab Interpretation (test code = 93508-2) Abnormal [facility]2023-06-14 17:27:33* Test Item Value Reference Range Interpretation Comme nts [place] (test code = 0676378477) 0.3 mmol/L 0.6-1.2 L ZAINAB (test code = ZAINAB) Toxic Range: ? Greater than 1.2 mmol/L Lab Interpretation (test code = 15827-3) Abnormal [facility]2023-06-14 17:27:33* Test Item Value Reference Range Interpretation Comme nts [place] (test code = 7294340537) 0.3 mmol/L 0.6-1.2 L ZAINAB (test code = ZAINAB) Toxic Range: ? Greater than 1.2 mmol/L Lab Interpretation (test code = 12749-8) Abnormal [facility]2023-06-14 17:27:33* Test Item Value Reference Range Interpretation Comme nts [place] (test code = 3722574261) 0.3 mmol/L 0.6-1.2 L ZAINAB (test code = ZAINAB) Toxic Range: ? Greater than 1.2 mmol/L Lab Interpretation (test code = 65490-5) Abnormal [facility]2023-06-14 17:27:33* Test Item Value Reference Range Interpretation Comme nts [place] (test code = 6743332287) 0.3 mmol/L 0.6-1.2 L ZAINAB (test code = ZAINAB) Toxic Range: ? Greater than 1.2 mmol/L Lab Interpretation (test code = 24158-7) Abnormal [facility] W/AUTO DIFF WITH [id number] 06:12:05* Test Item Value Reference Range Interpretation [...] 0.00-0.10 ABS NUCLEATED RBCS (test code = 21790) 0.00 K/UL 0.00-0.11 RETICULOCYTE WITH [id number] 06:12:05* Test Item Value Reference Range Interpretation Comme nts RETICULOCYTE COUNT (test code = 1018) 2.50 % 0.80-2.40 H ABSOLUTE RETICULOCYTE (test code = 32962) 103.3 K/UL 32.0-105.0 [facility] has important pathology staff changes effective 04/12/2022. New pathology staff will provide uninterrupted, excellent patient care and clinical consultation. See URL: [email or web address]. UNLESS OTHERWISE INDICATED, ALL TESTING PERFORMED AT [facility] [address] [place] [id number] [employer] SALES CONSULTANT: CHARLA HERNANDEZ M.D. CLIA NUMBER [id number] [place]. [id number] CBC W/AUTO [id number] 00:00:00* Test Item Value Reference Range Interpretation [...] ABS NUCLEATED RBCS (test cod e = 09136) 0.00 K/UL Robert CaliRETICULOCYTE WITH [id number] 00:00:00* Test Item Value Reference Range Interpretation Comme nts RETICULOCYTE COUNT (test cod e = 1018) 2.50 % ABSOLUTE RETICULOCYTE (test code = 21389) 103.3 K/UL Robert CaliCBC W/AUTO [id number] 00:00:00* Test Item Value Reference Range Interpretation [...] ABS NUCLEATED RBCS (test cod e = 68282) 0.00 K/UL Robert CaliRETICULOCYTE WITH [id number] 00:00:00* Test Item Value Reference Range Interpretation Comme nts RETICULOCYTE COUNT (test cod e = 1018) 2.50 % ABSOLUTE RETICULOCYTE (test code = 22838) 103.3 K/UL Robert Ambrose VirajCBC W/AUTO [id number] 00:00:00* Test Item Value Reference Range Interpretation [...] ABS NUCLEATED RBCS (test cod e = 06285) 0.00 K/UL Robert CaliRETICULOCYTE WITH [id number] 00:00:00* Test Item Value Reference Range Interpretation Comme nts RETICULOCYTE COUNT (test cod e = 1018) 2.50 % ABSOLUTE RETICULOCYTE (test code = 23932) 103.3 K/UL Robert CaliCBC W/AUTO [id number] 00:00:00* Test Item Value Reference Range Interpretation [...] ABS NUCLEATED RBCS (test cod e = 68181) 0.00 K/UL Robert CaliRETICULOCYTE WITH [id number] 00:00:00* Test Item Value Reference Range Interpretation Comme nts RETICULOCYTE COUNT (test cod e = 1018) 2.50 % ABSOLUTE RETICULOCYTE (test code = 95333) 103.3 K/UL Robert CaliCBC W/AUTO [id number] 00:00:00* Test Item Value Reference Range Interpretation [...] ABS NUCLEATED RBCS (test cod e = 41576) 0.00 K/UL Robert Ambrose AustinRETICULOCYTE WITH [id number] 00:00:00* Test Item Value Reference Range Interpretation Comme nts RETICULOCYTE COUNT (test cod e = 1018) 2.50 % ABSOLUTE RETICULOCYTE (test code = 67143) 103.3 K/UL Robert Ambrose AustinCBC W/AUTO [id number] 00:00:00* Test Item Value Reference Range Interpretation [...] ABS NUCLEATED RBCS (test cod e = 50270) 0.00 K/UL Robert Ambrose AustinRETICULOCYTE WITH [id number] 00:00:00* Test Item Value Reference Range Interpretation Comme nts RETICULOCYTE COUNT (test cod e = 1018) 2.50 % ABSOLUTE RETICULOCYTE (test code = 06254) 103.3 K/UL Robert Ambrose AustinCBC W/AUTO [id number] 00:00:00* Test Item Value Reference Range Interpretation [...] ABS NUCLEATED RBCS (test cod e = 51180) 0.00 K/UL Robert CaliRETICULOCYTE WITH [id number] 00:00:00* Test Item Value Reference Range Interpretation Comme nts RETICULOCYTE COUNT (test cod e = 1018) 2.50 % ABSOLUTE RETICULOCYTE (test code = 43363) 103.3 K/UL Robert CaliCBC W/AUTO [id number] 00:00:00* Test Item Value Reference Range Interpretation [...] ABS NUCLEATED RBCS (test cod e = 40815) 0.00 K/UL Robert CaliRETICULOCYTE WITH [id number] 00:00:00* Test Item Value Reference Range Interpretation Comme nts RETICULOCYTE COUNT (test cod e = 1018) 2.50 % ABSOLUTE RETICULOCYTE (test code = 28497) 103.3 K/UL Robert Bailon NON-REFLEX TO [id number] 05:55:49* Test Item Value Reference Range Interpretation Comme nts ANTI-NUCLEAR ANTIBODIES (test code = 3506) NEGATIVE NEGATIVE METHODOLOGY IS I NDIRECT IMMUNOFLUORESCENT ASSAY (IFA) WITH HUMAN EPITHELIAL (HEP-2) CELL LINE SUBSTRATE. YAZMIN NON-REFLEX TO [id number] 00:00:00* Test Item Value Reference Range Interpretation Comme nts ANTI-NUCLEAR ANTIBODIES (aram t code = 3506) NEGATIVE Rboert Bailon NON-REFLEX TO [id number] 00:00:00* Test Item Value Reference Range Interpretation Comme nts ANTI-NUCLEAR ANTIBODIES (aram t code = 3506) NEGATIVE Robert Bailon NON-REFLEX TO [id number] 00:00:00* Test Item Value Reference Range Interpretation Comme nts ANTI-NUCLEAR ANTIBODIES (aram t code = 3506) NEGATIVE Robert CaliANA NON-REFLEX TO [id number] 00:00:00* Test Item Value Reference Range Interpretation Comme nts ANTI-NUCLEAR ANTIBODIES (aram t code = 3506) NEGATIVE Robert CaliANA NON-REFLEX TO [id number] 00:00:00* Test Item Value Reference Range Interpretation Comme nts ANTI-NUCLEAR ANTIBODIES (aram t code = 3506) NEGATIVE Robetr Ambrose AustinANA NON-REFLEX TO [id number] 00:00:00* Test Item Value Reference Range Interpretation Comme nts ANTI-NUCLEAR ANTIBODIES (aram t code = 3506) NEGATIVE Robert Ambrose AustinANA NON-REFLEX TO [id number] 00:00:00* Test Item Value Reference Range Interpretation Comme nts ANTI-NUCLEAR ANTIBODIES (aram t code = 3506) NEGATIVE Robert CaliANA NON-REFLEX TO [id number] 00:00:00* Test Item Value Reference Range Interpretation Comme nts ANTI-NUCLEAR ANTIBODIES (aram t code = 3506) NEGATIVE Robert CaliFOLATE, [id number] 12:42:51* Test Item Value Reference Range Interpretation [...] . . . NG/ML >1504 TSH, THIRD [id number] 11:05:54* Test Item Value Reference Range Interpretation Comme nts TSH, THIRD GENERATION (test code = 2821) 1.310 UIU/ML 0.400-4.100 VITAMIN [id number] 11:05:54* Test Item Value Reference Range Interpretation Comme nts VITAMIN B-12 (test code = 2840) 436 PG/ML 200-950 VITAMIN D, 25 [id number] 11:03:45* Test Item Value Reference Range Interpretation Comme [facility] VITAMIN D, 25 OH (test code [...] . . . . . NG/ML 30-100 [facility] has important pathology staff changes effective 04/12/2022. New pathology staff will provide uninterrupted, excellent patient care and clinical consultation. See URL: [email or web address]. UNLESS OTHERWISE INDICATED, ALL TESTING PERFORMED AT [facility] [address] [place] [address] DAIRY FEED SALES CONSULTANT: CHARLA HERNANDEZ M.D. IA NUMBER [id number] [place]. [id number] URIC [id number] 05:28:57* Test Item Value Reference Range Interpretation Comme [facility] URIC ACID (test code = 2233) 6.7 MG/DL 2.7-6.1 H COMPREHENSIVE METABOLIC [id number] 05:28:57* Test Item Value Reference Range Interpretation Comme nts GLUCOSE (test code = 2217) 103 MG/DL 70-99 H BUN (test code = 2208) 9 MG/DL 6-20 CREATININE (test code = 2214) 0.72 MG/DL 0.60-1.30 eGFR (2020 CKD-EPI) (test code = 64750) 106 ML/MIN/1.73 >60 CALC BUN/CREAT (test code [...] code = 2218) 26 U/L 5-40 LIPID [id number] 05:28:57* Test Item Value Reference Range Interpretation [...] code = 223) 3.04 RATIO <3.22 HEMOGLOBIN [id number] 02:54:46* Test Item Value Reference Range Interpretation Comme nts HEMOGLOBIN A1c (test code = 01634) 5.6 % 4.2-5.6 CBC W/AUTO DIFF WITH [id number] 01:58:18* Test Item Value Reference Range Interpretation [...] 0.00-0.10 ABS NUCLEATED RBCS (test code = 39157) 0.00 K/UL 0.00-0.11 VITAMIN [id number] 00:00:00* Test Item Value Reference Range Interpretation Comme nts VITAMIN B-12 (test code = 2840) 436 PG/ML Robert CaliFOLATE, [id number] 00:00:00* Test Item Value Reference Range Interpretation Comme rigoberto HEMATOCRIT (test code = 1004) 28.7 % FOLATE, RBC (test code = 2690) 1185 NG/ML Robert CaliURIC [id number] 00:00:00* Test Item Value Reference Range Interpretation Comme nts URIC ACID (test code = 2233) 6.7 MG/DL Robert CaliVITAMIN D, 25 [id number] 00:00:00* Test Item Value Reference Range Interpretation Comme rigoberto VITAMIN D, 25 OH (test code = 4958) 13 NG/ML Robert CaliCOMPREHENSIVE METABOLIC [id number] 00:00:00* Test Item Value Reference Range Interpretation Comme nts GLUCOSE (test code = 2217) 103 MG/DL BUN (test code = 2208) 9 MG/DL CREATININE (test code = 2214) 0.72 MG/DL eGFR (2020 CKD-EPI) (test code = 15308) 106 ML/MIN/1.73 CALC BUN/CREAT (test code = [...] code = 2219) 26 U/L Robert CaliLIPID [id number] 00:00:00* Test Item Value Reference Range Interpretation Comme nts CHOLESTEROL (test code = 2210) 207 MG/DL TRIGLYCERIDES (test code = 2232) 130 MG/DL HDL CHOLESTEROL (test code = 2220) 45 MG/DL CALC LDL CHOL (test code = 2237) 137 MG/DL RISK RATIO LDL/HDL (test cod e = 2238) 3.04 RATIO Robert CaliHEMOGLOBIN [id number] 00:00:00* Test Item Value Reference Range Interpretation Comme nts HEMOGLOBIN A1c (test code = 18813) 5.6 % Robert CaliCBC W/AUTO [id number] 00:00:00* Test Item Value Reference Range Interpretation [...] ABS NUCLEATED RBCS (test cod e = 01619) 0.00 K/UL Robert CaliTSH, THIRD [id number] 00:00:00* Test Item Value Reference Range Interpretation Comme [facility] TSH, THIRD GENERATION (test code = 2821) 1.310 UIU/ML Robert CaliVITAMIN [id number] 00:00:00* Test Item Value Reference Range Interpretation Comme [facility] VITAMIN B-12 (test code = 2840) 436 PG/ML Robert CaliFOLATE, [id number] 00:00:00* Test Item Value Reference Range Interpretation Comme rigoberto HEMATOCRIT (test code = 1004) 28.7 % FOLATE, RBC (test code = 2690) 1185 NG/ML Robert CaliURIC [id number] 00:00:00* Test Item Value Reference Range Interpretation Comme rigoberto URIC ACID (test code = 2233) 6.7 MG/DL Robert CaliVITAMIN D, 25 [id number] 00:00:00* Test Item Value Reference Range Interpretation Comme rigoberto VITAMIN D, 25 OH (test code = 4958) 13 NG/ML Robert CaliCOMPREHENSIVE METABOLIC [id number] 00:00:00* Test Item Value Reference Range Interpretation Comme rigoberto GLUCOSE (test code = 2217) 103 MG/DL BUN (test code = 2208) 9 MG/DL CREATININE (test code = 2214) 0.72 MG/DL eGFR (2020 CKD-EPI) (test code = 52887) 106 ML/MIN/1.73 CALC BUN/CREAT (test code = [...] code = 2219) 26 U/L Robert CaliLIPID [id number] 00:00:00* Test Item Value Reference Range Interpretation Comme nts CHOLESTEROL (test code = 2210) 207 MG/DL TRIGLYCERIDES (test code = 2232) 130 MG/DL HDL CHOLESTEROL (test code = 2220) 45 MG/DL CALC LDL CHOL (test code = 2237) 137 MG/DL RISK RATIO LDL/HDL (test cod e = 2238) 3.04 RATIO Robert CaliHEMOGLOBIN [id number] 00:00:00* Test Item Value Reference Range Interpretation Comme nts HEMOGLOBIN A1c (test code = 10899) 5.6 % Robert CaliCBC W/AUTO [id number] 00:00:00* Test Item Value Reference Range Interpretation [...] ABS NUCLEATED RBCS (test cod e = 83202) 0.00 K/UL Robert Fuller, THIRD [id number] 00:00:00* Test Item Value Reference Range Interpretation Comme nts TSH, THIRD GENERATION (test code = 2821) 1.310 UIU/ML Robert CaliVITAMIN [id number] 00:00:00* Test Item Value Reference Range Interpretation Comme rigoberto VITAMIN B-12 (test code = 2840) 436 PG/ML Robert CaliFOLATE, [id number] 00:00:00* Test Item Value Reference Range Interpretation Comme rigoberto HEMATOCRIT (test code = 1004) 28.7 % FOLATE, RBC (test code = 2690) 1185 NG/ML Robert CaliURIC [id number] 00:00:00* Test Item Value Reference Range Interpretation Comme nts URIC ACID (test code = 2233) 6.7 MG/DL Robert CaliVITAMIN D, 25 [id number] 00:00:00* Test Item Value Reference Range Interpretation Comme nts VITAMIN D, 25 OH (test code = 4958) 13 NG/ML Robert CaliCOMPREHENSIVE METABOLIC [id number] 00:00:00* Test Item Value Reference Range Interpretation Comme nts GLUCOSE (test code = 2217) 103 MG/DL BUN (test code = 2208) 9 MG/DL CREATININE (test code = 2214) 0.72 MG/DL eGFR (2020 CKD-EPI) (test code = 31941) 106 ML/MIN/1.73 CALC BUN/CREAT (test code = [...] code = 2219) 26 U/L Robert CaliLIPID [id number] 00:00:00* Test Item Value Reference Range Interpretation Comme nts CHOLESTEROL (test code = 2210) 207 MG/DL TRIGLYCERIDES (test code = 2232) 130 MG/DL HDL CHOLESTEROL (test code = 2220) 45 MG/DL CALC LDL CHOL (test code = 2237) 137 MG/DL RISK RATIO LDL/HDL (test cod e = 2238) 3.04 RATIO Robert CaliHEMOGLOBIN [id number] 00:00:00* Test Item Value Reference Range Interpretation Comme nts HEMOGLOBIN A1c (test code = 53873) 5.6 % Robert CaliCBC W/AUTO [id number] 00:00:00* Test Item Value Reference Range Interpretation [...] ABS NUCLEATED RBCS (test cod e = 36522) 0.00 K/UL Robert FullerH, THIRD [id number] 00:00:00* Test Item Value Reference Range Interpretation Comme nts TSH, THIRD GENERATION (test code = 2821) 1.310 UIU/ML Robert Tapia [id number] 00:00:00* Test Item Value Reference Range Interpretation Comme rigoberto VITAMIN B-12 (test code = 2840) 436 PG/ML Robert CaliFOLATE, [id number] 00:00:00* Test Item Value Reference Range Interpretation Comme rigoberto HEMATOCRIT (test code = 1004) 28.7 % FOLATE, RBC (test code = 2690) 1185 NG/ML Robert CaliURIC [id number] 00:00:00* Test Item Value Reference Range Interpretation Comme nts URIC ACID (test code = 2233) 6.7 MG/DL Robert CaliVITAMIN D, 25 [id number] 00:00:00* Test Item Value Reference Range Interpretation Comme rigoberto VITAMIN D, 25 OH (test code = 4958) 13 NG/ML Robert CaliCOMPREHENSIVE METABOLIC [id number] 00:00:00* Test Item Value Reference Range Interpretation Comme rigoberto GLUCOSE (test code = 2217) 103 MG/DL BUN (test code = 2208) 9 MG/DL CREATININE (test code = 2214) 0.72 MG/DL eGFR (2020 CKD-EPI) (test code = 87840) 106 ML/MIN/1.73 CALC BUN/CREAT (test code = [...] code = 2219) 26 U/L Robert CaliLIPID [id number] 00:00:00* Test Item Value Reference Range Interpretation Comme nts CHOLESTEROL (test code = 2210) 207 MG/DL TRIGLYCERIDES (test code = 2232) 130 MG/DL HDL CHOLESTEROL (test code = 2220) 45 MG/DL CALC LDL CHOL (test code = 2237) 137 MG/DL RISK RATIO LDL/HDL (test cod e = 2238) 3.04 RATIO Robert CaliHEMOGLOBIN [id number] 00:00:00* Test Item Value Reference Range Interpretation Comme nts HEMOGLOBIN A1c (test code = 76951) 5.6 % Robert CaliCBC W/AUTO [id number] 00:00:00* Test Item Value Reference Range Interpretation [...] ABS NUCLEATED RBCS (test cod e = 26125) 0.00 K/UL Robert CaliTSH, THIRD [id number] 00:00:00* Test Item Value Reference Range Interpretation Comme nts TSH, THIRD GENERATION (test code = 2821) 1.310 UIU/ML Robert CaliVITAMIN [id number] 00:00:00* Test Item Value Reference Range Interpretation Comme rigoberto VITAMIN B-12 (test code = 2840) 436 PG/ML Robert CaliFOLATE, [id number] 00:00:00* Test Item Value Reference Range Interpretation Comme nts HEMATOCRIT (test code = 1004) 28.7 % FOLATE, RBC (test code = 2690) 1185 NG/ML Robert CaliURIC [id number] 00:00:00* Test Item Value Reference Range Interpretation Comme rigoberto URIC ACID (test code = 2233) 6.7 MG/DL Robert CaliVITAMIN D, 25 [id number] 00:00:00* Test Item Value Reference Range Interpretation Comme rigoberto VITAMIN D, 25 OH (test code = 4958) 13 NG/ML Robert CaliCOMPREHENSIVE METABOLIC [id number] 00:00:00* Test Item Value Reference Range Interpretation Comme rigoberto GLUCOSE (test code = 2217) 103 MG/DL BUN (test code = 2208) 9 MG/DL CREATININE (test code = 2214) 0.72 MG/DL eGFR (2020 CKD-EPI) (test code = 61503) 106 ML/MIN/1.73 CALC BUN/CREAT (test code = [...] code = 2219) 26 U/L Robert CaliLIPID [id number] 00:00:00* Test Item Value Reference Range Interpretation Comme nts CHOLESTEROL (test code = 2210) 207 MG/DL TRIGLYCERIDES (test code = 2232) 130 MG/DL HDL CHOLESTEROL (test code = 2220) 45 MG/DL CALC LDL CHOL (test code = 2237) 137 MG/DL RISK RATIO LDL/HDL (test cod e = 2238) 3.04 RATIO Robert CaliHEMOGLOBIN [id number] 00:00:00* Test Item Value Reference Range Interpretation Comme nts HEMOGLOBIN A1c (test code = 37682) 5.6 % Robert CaliCBC W/AUTO [id number] 00:00:00* Test Item Value Reference Range Interpretation [...] ABS NUCLEATED RBCS (test cod e = 65787) 0.00 K/UL Robert CaliJAVON, THIRD [id number] 00:00:00* Test Item Value Reference Range Interpretation Comme rigoberto TSH, THIRD GENERATION (test code = 2821) 1.310 UIU/ML Robert CaliVITAMIN [id number] 00:00:00* Test Item Value Reference Range Interpretation Comme nts VITAMIN B-12 (test code = 2840) 436 PG/ML Robert CaliFOLATE, [id number] 00:00:00* Test Item Value Reference Range Interpretation Comme nts HEMATOCRIT (test code = 1004) 28.7 % FOLATE, RBC (test code = 2690) 1185 NG/ML Robert CaliURIC [id number] 00:00:00* Test Item Value Reference Range Interpretation Comme rigoberto URIC ACID (test code = 2233) 6.7 MG/DL Robert CaliVITAMIN D, 25 [id number] 00:00:00* Test Item Value Reference Range Interpretation Comme rigoberto VITAMIN D, 25 OH (test code = 4958) 13 NG/ML Robert CaliCOMPREHENSIVE METABOLIC [id number] 00:00:00* Test Item Value Reference Range Interpretation Comme nts GLUCOSE (test code = 2217) 103 MG/DL BUN (test code = 2208) 9 MG/DL CREATININE (test code = 2214) 0.72 MG/DL eGFR (2020 CKD-EPI) (test code = 04635) 106 ML/MIN/1.73 CALC BUN/CREAT (test code = [...] code = 2219) 26 U/L Robert CaliLIPID [id number] 00:00:00* Test Item Value Reference Range Interpretation Comme nts CHOLESTEROL (test code = 2210) 207 MG/DL TRIGLYCERIDES (test code = 2232) 130 MG/DL HDL CHOLESTEROL (test code = 2220) 45 MG/DL CALC LDL CHOL (test code = 2237) 137 MG/DL RISK RATIO LDL/HDL (test cod e = 2238) 3.04 RATIO Robert CaliHEMOGLOBIN [id number] 00:00:00* Test Item Value Reference Range Interpretation Comme nts HEMOGLOBIN A1c (test code = 69122) 5.6 % Robert CaliCBC W/AUTO [id number] 00:00:00* Test Item Value Reference Range Interpretation [...] ABS NUCLEATED RBCS (test cod e = 30141) 0.00 K/UL Robert CaliTSH, THIRD [id number] 00:00:00* Test Item Value Reference Range Interpretation Comme rigoberto TSH, THIRD GENERATION (test code = 2821) 1.310 UIU/ML Robert CaliVITAMIN [id number] 00:00:00* Test Item Value Reference Range Interpretation Comme rigoberto VITAMIN B-12 (test code = 2840) 436 PG/ML Robert CaliFOLATE, [id number] 00:00:00* Test Item Value Reference Range Interpretation Comme rigoberto HEMATOCRIT (test code = 1004) 28.7 % FOLATE, RBC (test code = 2690) 1185 NG/ML Robert CaliURIC [id number] 00:00:00* Test Item Value Reference Range Interpretation Comme rigoberto URIC ACID (test code = 2233) 6.7 MG/DL Robert CaliVITAMIN D, 25 [id number] 00:00:00* Test Item Value Reference Range Interpretation Comme rigoberto VITAMIN D, 25 OH (test code = 4958) 13 NG/ML Robert CaliCOMPREHENSIVE METABOLIC [id number] 00:00:00* Test Item Value Reference Range Interpretation Comme rigoberto GLUCOSE (test code = 2217) 103 MG/DL BUN (test code = 2208) 9 MG/DL CREATININE (test code = 2214) 0.72 MG/DL eGFR (2020 CKD-EPI) (test code = 29133) 106 ML/MIN/1.73 CALC BUN/CREAT (test code = [...] code = 2219) 26 U/L Robert CaliLIPID [id number] 00:00:00* Test Item Value Reference Range Interpretation Comme nts CHOLESTEROL (test code = 2210) 207 MG/DL TRIGLYCERIDES (test code = 2232) 130 MG/DL HDL CHOLESTEROL (test code = 2220) 45 MG/DL CALC LDL CHOL (test code = 2237) 137 MG/DL RISK RATIO LDL/HDL (test cod e = 2238) 3.04 RATIO Robert CaliHEMOGLOBIN [id number] 00:00:00* Test Item Value Reference Range Interpretation Comme nts HEMOGLOBIN A1c (test code = 08078) 5.6 % Robert CaliCBC W/AUTO [id number] 00:00:00* Test Item Value Reference Range Interpretation [...] ABS NUCLEATED RBCS (test cod e = 58261) 0.00 K/UL Robert CaliTSH, THIRD [id number] 00:00:00* Test Item Value Reference Range Interpretation Comme rigoberto TSH, THIRD GENERATION (test code = 2821) 1.310 UIU/ML Robert CaliVITAMIN [id number] 00:00:00* Test Item Value Reference Range Interpretation Comme rigoberto VITAMIN B-12 (test code = 2840) 436 PG/ML Robert CaliFOLATE, [id number] 00:00:00* Test Item Value Reference Range Interpretation Comme rigoberto HEMATOCRIT (test code = 1004) 28.7 % FOLATE, RBC (test code = 2690) 1185 NG/ML Robert CaliURIC [id number] 00:00:00* Test Item Value Reference Range Interpretation Comme rigoberto URIC ACID (test code = 2233) 6.7 MG/DL Robert CaliVITAMIN D, 25 [id number] 00:00:00* Test Item Value Reference Range Interpretation Comme rigoberto VITAMIN D, 25 OH (test code = 4958) 13 NG/ML Robert CaliCOMPREHENSIVE METABOLIC [id number] 00:00:00* Test Item Value Reference Range Interpretation Comme rigoberto GLUCOSE (test code = 2217) 103 MG/DL BUN (test code = 2208) 9 MG/DL CREATININE (test code = 2214) 0.72 MG/DL eGFR (2020 CKD-EPI) (test code = 28197) 106 ML/MIN/1.73 CALC BUN/CREAT (test code = [...] code = 2219) 26 U/L Robert CaliLIPID [id number] 00:00:00* Test Item Value Reference Range Interpretation Comme nts CHOLESTEROL (test code = 2210) 207 MG/DL TRIGLYCERIDES (test code = 2232) 130 MG/DL HDL CHOLESTEROL (test code = 2220) 45 MG/DL CALC LDL CHOL (test code = 2237) 137 MG/DL RISK RATIO LDL/HDL (test cod e = 2238) 3.04 RATIO Robert CaliHEMOGLOBIN [id number] 00:00:00* Test Item Value Reference Range Interpretation Comme nts HEMOGLOBIN A1c (test code = 99521) 5.6 % Robert CaliCBC W/AUTO [id number] 00:00:00* Test Item Value Reference Range Interpretation [...] ABS NUCLEATED RBCS (test cod e = 23259) 0.00 K/UL Robert Jimenez, THIRD [id number] 00:00:00* Test Item Value Reference Range Interpretation Comme nts TSH, THIRD GENERATION (test code = 2821) 1.310 UIU/ML Robert [id number] 20:05:22* Test Item Value Reference Range Interpretation Comme nts [place] (test code = 9538625119) 1.1 mmol/L 0.6-1.2 ZAINAB (test code = ZAINAB) Toxic Range: ? Greater than 1.2 mmol/L Lab Interpretation (test code = 63077-1) [facility]2023-01-04 20:05:22* Test Item Value Reference Range Interpretation Comme nts [place] (test code = 6784256090) 1.1 mmol/L 0.6-1.2 ZAINAB (test code = ZAINAB) Toxic Range: ? Greater than 1.2 mmol/L Lab Interpretation (test code = 93681-0) [facility]2023-01-04 20:05:22* Test Item Value Reference Range Interpretation Comme nts [place] (test code = 4591713137) 1.1 mmol/L 0.6-1.2 ZAINAB (test code = ZAINAB) Toxic Range: ? Greater than 1.2 mmol/L Lab Interpretation (test code = 43980-4) [facility]2023-01-04 20:05:22* Test Item Value Reference Range Interpretation Comme nts [place] (test code = 6460502999) 1.1 mmol/L 0.6-1.2 ZAINAB (test code = ZAINAB) Toxic Range: ? Greater than 1.2 mmol/L Lab Interpretation (test code = 21931-9) [facility]2023-01-04 20:05:22* Test Item Value Reference Range Interpretation Comme nts [place] (test code = 3609746728) 1.1 mmol/L 0.6-1.2 ZAINAB (test code = ZAINAB) Toxic Range: ? Greater than 1.2 mmol/L Lab Interpretation (test code = 17392-1) [facility]2023-01-04 20:05:22* Test Item Value Reference Range Interpretation Comme nts [place] (test code = 4371867439) 1.1 mmol/L 0.6-1.2 ZAINAB (test code = ZAINAB) Toxic Range: ? Greater than 1.2 mmol/L Lab Interpretation (test code = 00844-8) [facility]2023-01-04 20:05:22* Test Item Value Reference Range Interpretation Comme nts [place] (test code = 3121194209) 1.1 mmol/L 0.6-1.2 ZAINAB (test code = ZAINAB) Toxic Range: ? Greater than 1.2 mmol/L Lab Interpretation (test code = 45826-2) [facility]2023-01-04 20:05:22* Test Item Value Reference Range Interpretation Comme nts [place] (test code = 8354346581) 1.1 mmol/L 0.6-1.2 ZAINAB (test code = ZAINAB) Toxic Range: ? Greater than 1.2 mmol/L Lab Interpretation (test code = 12043-9) [facility]2023-01-04 20:05:22* Test Item Value Reference Range Interpretation Comme nts [place] (test code = 0074490381) 1.1 mmol/L 0.6-1.2 ZAINAB (test code = ZAINAB) Toxic Range: ? Greater than 1.2 mmol/L Lab Interpretation (test code = 60418-6) [facility]2023-01-04 20:05:22* Test Item Value Reference Range Interpretation Comme nts [place] (test code = 9886604378) 1.1 mmol/L 0.6-1.2 ZAINAB (test code = ZAINAB) Toxic Range: ? Greater than 1.2 mmol/L Lab Interpretation (test code = 67916-6[facility] [id number] [facility]:00:00* Test Item Value Reference Range Interpretation Comme nts VITAMIN D, 25 OH (test code = 4958) 17 NG[facility] [id number] 00:00:00* Test Item Value Reference Range Interpretation [...] ABS NUCLEATED RBCS (test cod e = 76172) 0.00 K/UL Robert CaliHEMOGLOBIN [id number] 00:00:00* Test Item Value Reference Range Interpretation Comme nts HEMOGLOBIN A1c (test code = 52291) 5.5 % Robert Ambrose AustinLIPID [id number] 00:00:00* Test Item Value Reference Range Interpretation Comme nts CHOLESTEROL (test code = 2210) 181 MG/DL TRIGLYCERIDES (test code = 2232) 81 MG/DL HDL CHOLESTEROL (test code = 2220) 46 MG/DL CALC LDL CHOL (test code = 2237) 117 MG/DL RISK RATIO LDL/HDL (test cod e = 2238) 2.54 RATIO Robert CaliCOMPREHENSIVE METABOLIC [id number] 00:00:00* Test Item Value Reference Range Interpretation Comme nts GLUCOSE (test code = 2217) 102 MG/DL BUN (test code = 2208) 10 MG/DL CREATININE (test code = 2214) 0.67 MG/DL eGFR AMER. (test cod e = 98084) 126 ML/MIN/1.73 eGFR NON- AMER. (test code = 23865) 108 ML/MIN/1.73 CALC BUN/CREAT (test code = [...] (test code = 2219) 18 U/L Robert Arnol [id number] 00:00:00* Test Item Value Reference Range Interpretation Comme [facility] TSH, THIRD GENERATION (test code = 2821) 1.140 UIU/ML Robert CaliVITAMIN D, 25 [id number] 00:00:00* Test Item Value Reference Range Interpretation Comme [facility] VITAMIN D, 25 OH (test code = 4958) 17 NG/ML Robert CaliCBC W/AUTO [id number] 00:00:00* Test Item Value Reference Range Interpretation Comme [facility] WBC (test code = 1001) 7.2 [...] ABS NUCLEATED RBCS (test cod e = 18083) 0.00 K/UL Robert CaliHEMOGLOBIN [id number] 00:00:00* Test Item Value Reference Range Interpretation Comme nts HEMOGLOBIN A1c (test code = 04556) 5.5 % Robert Ambrose AustinLIPID [id number] 00:00:00* Test Item Value Reference Range Interpretation Comme nts CHOLESTEROL (test code = 2210) 181 MG/DL TRIGLYCERIDES (test code = 2232) 81 MG/DL HDL CHOLESTEROL (test code = 2220) 46 MG/DL CALC LDL CHOL (test code = 2237) 117 MG/DL RISK RATIO LDL/HDL (test cod e = 2238) 2.54 RATIO Robert CaliCOMPREHENSIVE METABOLIC [id number] 00:00:00* Test Item Value Reference Range Interpretation Comme nts GLUCOSE (test code = 2217) 102 MG/DL BUN (test code = 2208) 10 MG/DL CREATININE (test code = 2214) 0.67 MG/DL eGFR AMER. (test cod e = 31893) 126 ML/MIN/1.73 eGFR NON- AMER. (test code = 47309) 108 ML/MIN/1.73 CALC BUN/CREAT (test code = [...] (test code = 2219) 18 U/L Robert [id number] 00:00:00* Test Item Value Reference Range Interpretation Comme [facility] TSH, THIRD GENERATION (test code = 2821) 1.140 UIU/ML Robert CaliVITAMIN D, 25 [id number] 00:00:00* Test Item Value Reference Range Interpretation Comme [facility] VITAMIN D, 25 OH (test code = 4958) 17 NG/ML Robert CaliCBC W/AUTO [id number] 00:00:00* Test Item Value Reference Range Interpretation Comme [facility] WBC (test code = 1001) 7.2 [...] ABS NUCLEATED RBCS (test cod e = 86685) 0.00 K/UL Robert CaliHEMOGLOBIN [id number] 00:00:00* Test Item Value Reference Range Interpretation Comme nts HEMOGLOBIN A1c (test code = 73171) 5.5 % Robert CaliLIPID [id number] 00:00:00* Test Item Value Reference Range Interpretation Comme nts CHOLESTEROL (test code = 2210) 181 MG/DL TRIGLYCERIDES (test code = 2232) 81 MG/DL HDL CHOLESTEROL (test code = 2220) 46 MG/DL CALC LDL CHOL (test code = 2237) 117 MG/DL RISK RATIO LDL/HDL (test cod e = 2238) 2.54 RATIO Robert CaliCOMPREHENSIVE METABOLIC [id number] 00:00:00* Test Item Value Reference Range Interpretation Comme nts GLUCOSE (test code = 2217) 102 MG/DL BUN (test code = 2208) 10 MG/DL CREATININE (test code = 2214) 0.67 MG/DL eGFR AMER. (test cod e = 04556) 126 ML/MIN/1.73 eGFR NON- AMER. (test code = 45332) 108 ML/MIN/1.73 CALC BUN/CREAT (test code = [...] (test code = 2219) 18 U/L Robert [id number] 00:00:00* Test Item Value Reference Range Interpretation Comme nts TSH, THIRD GENERATION (test code = 2821) 1.140 UIU/ML Robert CaliVITAMIN D, 25 [id number] 00:00:00* Test Item Value Reference Range Interpretation Comme nts VITAMIN D, 25 OH (test code = 4958) 17 NG/ML Robert CaliCBC W/AUTO [id number] 00:00:00* Test Item Value Reference Range Interpretation [...] ABS NUCLEATED RBCS (test cod e = 76069) 0.00 K/UL Robert CaliHEMOGLOBIN [id number] 00:00:00* Test Item Value Reference Range Interpretation Comme rigoberto HEMOGLOBIN A1c (test code = 99848) 5.5 % Robert CaliLIPID [id number] 00:00:00* Test Item Value Reference Range Interpretation Comme nts CHOLESTEROL (test code = 2210) 181 MG/DL TRIGLYCERIDES (test code = 2232) 81 MG/DL HDL CHOLESTEROL (test code = 2220) 46 MG/DL CALC LDL CHOL (test code = 2237) 117 MG/DL RISK RATIO LDL/HDL (test cod e = 2238) 2.54 RATIO Robert CaliCOMPREHENSIVE METABOLIC [id number] 00:00:00* Test Item Value Reference Range Interpretation Comme nts GLUCOSE (test code = 2217) 102 MG/DL BUN (test code = 2208) 10 MG/DL CREATININE (test code = 2214) 0.67 MG/DL eGFR AMER. (test cod e = 65813) 126 ML/MIN/1.73 eGFR NON- AMER. (test code = 08306) 108 ML/MIN/1.73 CALC BUN/CREAT (test code = [...] (test code = 2219) 18 U/L Robert [id number] 00:00:00* Test Item Value Reference Range Interpretation Comme nts TSH, THIRD GENERATION (test code = 2821) 1.140 UIU/ML Robert CaliVITAMIN D, 25 [id number] 00:00:00* Test Item Value Reference Range Interpretation Comme nts VITAMIN D, 25 OH (test code = 4958) 17 NG/ML Robert CaliCBC W/AUTO [id number] 00:00:00* Test Item Value Reference Range Interpretation [...] ABS NUCLEATED RBCS (test cod e = 01839) 0.00 K/UL Robert CaliHEMOGLOBIN [id number] 00:00:00* Test Item Value Reference Range Interpretation Comme nts HEMOGLOBIN A1c (test code = 02424) 5.5 % Robert CaliLIPID [id number] 00:00:00* Test Item Value Reference Range Interpretation Comme nts CHOLESTEROL (test code = 2210) 181 MG/DL TRIGLYCERIDES (test code = 2232) 81 MG/DL HDL CHOLESTEROL (test code = 2220) 46 MG/DL CALC LDL CHOL (test code = 2237) 117 MG/DL RISK RATIO LDL/HDL (test cod e = 2238) 2.54 RATIO Robert CaliCOMPREHENSIVE METABOLIC [id number] 00:00:00* Test Item Value Reference Range Interpretation Comme nts GLUCOSE (test code = 2217) 102 MG/DL BUN (test code = 2208) 10 MG/DL CREATININE (test code = 2214) 0.67 MG/DL eGFR AMER. (test cod e = 63360) 126 ML/MIN/1.73 eGFR NON- AMER. (test code = 16419) 108 ML/MIN/1.73 CALC BUN/CREAT (test code = [...] (test code = 2219) 18 U/L Robert [id number] 00:00:00* Test Item Value Reference Range Interpretation Comme [facility] TSH, THIRD GENERATION (test code = 2821) 1.140 UIU/ML Robert CaliVITAMIN D, 25 [id number] 00:00:00* Test Item Value Reference Range Interpretation Comme [facility] VITAMIN D, 25 OH (test code = 4958) 17 NG/ML Robert CaliCBC W/AUTO [id number] 00:00:00* Test Item Value Reference Range Interpretation [...] ABS NUCLEATED RBCS (test cod e = 22332) 0.00 K/UL Robert CaliHEMOGLOBIN [id number] 00:00:00* Test Item Value Reference Range Interpretation Comme nts HEMOGLOBIN A1c (test code = 56549) 5.5 % Robert CaliLIPID [id number] 00:00:00* Test Item Value Reference Range Interpretation Comme nts CHOLESTEROL (test code = 2210) 181 MG/DL TRIGLYCERIDES (test code = 2232) 81 MG/DL HDL CHOLESTEROL (test code = 2220) 46 MG/DL CALC LDL CHOL (test code = 2237) 117 MG/DL RISK RATIO LDL/HDL (test cod e = 2238) 2.54 RATIO Robert CaliCOMPREHENSIVE METABOLIC [id number] 00:00:00* Test Item Value Reference Range Interpretation Comme nts GLUCOSE (test code = 2217) 102 MG/DL BUN (test code = 2208) 10 MG/DL CREATININE (test code = 2214) 0.67 MG/DL eGFR AMER. (test cod e = 92608) 126 ML/MIN/1.73 eGFR NON- AMER. (test code = ) 108 ML/MIN/1.73 CALC BUN/CREAT (test code = [...] 4) 127 U/L AST (test code = 8) 18 U/L ALT (test code = 2218) 18 U/L Robert Ambrose [id number] 00:00:00* Test Item Value Reference Range Interpretation Comme [facility] TSH, THIRD GENERATION (test code = 2821) 1.140 UIU/ML Robert CaliVITAMIN D, 25 [id number] 00:00:00* Test Item Value Reference Range Interpretation Comme [facility] VITAMIN D, 25 OH (test code = 4958) 17 NG/ML Robert Ambrose VirajCBC W/AUTO [id number] 00:00:00* Test Item Value Reference Range Interpretation Comme [facility] WBC (test code = 1001) 7.2 [...] ABS NUCLEATED RBCS (test cod e = 33569) 0.00 K/UL Robert CaliHEMOGLOBIN [id number] 00:00:00* Test Item Value Reference Range Interpretation Comme nts HEMOGLOBIN A1c (test code = 84055) 5.5 % Robert CaliLIPID [id number] 00:00:00* Test Item Value Reference Range Interpretation Comme nts CHOLESTEROL (test code = 2210) 181 MG/DL TRIGLYCERIDES (test code = 2232) 81 MG/DL HDL CHOLESTEROL (test code = 2220) 46 MG/DL CALC LDL CHOL (test code = 2237) 117 MG/DL RISK RATIO LDL/HDL (test cod e = 2238) 2.54 RATIO Robert CaliCOMPREHENSIVE METABOLIC [id number] 00:00:00* Test Item Value Reference Range Interpretation Comme nts GLUCOSE (test code = 2217) 102 MG/DL BUN (test code = 2208) 10 MG/DL CREATININE (test code = 2214) 0.67 MG/DL eGFR AMER. (test cod e = 40824) 126 ML/MIN/1.73 eGFR NON- AMER. (test code = 38092) 108 ML/MIN/1.73 CALC BUN/CREAT (test code = [...] (test code = 2219) 18 U/L Robert [id number] 00:00:00* Test Item Value Reference Range Interpretation Comme [facility] TSH, THIRD GENERATION (test code = 2821) 1.140 UIU/ML Robert CaliVITAMIN D, 25 [id number] 00:00:00* Test Item Value Reference Range Interpretation Comme [facility] VITAMIN D, 25 OH (test code = 4958) 17 NG/ML Robert CaliCBC W/AUTO [id number] 00:00:00* Test Item Value Reference Range Interpretation [...] ABS NUCLEATED RBCS (test cod e = 91264) 0.00 K/UL Robert CaliHEMOGLOBIN [id number] 00:00:00* Test Item Value Reference Range Interpretation Comme nts HEMOGLOBIN A1c (test code = 54205) 5.5 % Robert CaliLIPID [id number] 00:00:00* Test Item Value Reference Range Interpretation Comme nts CHOLESTEROL (test code = 2210) 181 MG/DL TRIGLYCERIDES (test code = 2232) 81 MG/DL HDL CHOLESTEROL (test code = 2220) 46 MG/DL CALC LDL CHOL (test code = 2237) 117 MG/DL RISK RATIO LDL/HDL (test cod e = 2238) 2.54 RATIO Robert CaliCOMPREHENSIVE METABOLIC [id number] 00:00:00* Test Item Value Reference Range Interpretation Comme nts GLUCOSE (test code = 2217) 102 MG/DL BUN (test code = 2208) 10 MG/DL CREATININE (test code = 2214) 0.67 MG/DL eGFR AMER. (test cod e = 57874) 126 ML/MIN/1.73 eGFR NON- AMER. (test code = 13107) 108 ML/MIN/1.73 CALC BUN/CREAT (test code = [...] (test code = 2219) 18 U/L Robert [id number] 00:00:00* Test Item Value Reference Range Interpretation [...] mg/dL VERY HIGH.........>/= 190 mg/dL Comments to Slab Grinder: ADD TO AM LABSLIPID PROFILE (CORONARY RISK)2018-07-20 [...] code = LDL) MG/DL 0-99 Comments to Slab Grinder: ADD TO AM LABSPROTHROMBIN [id number] 06:24:00* Test Item Value Reference Range Interpretation Comme [facility] PROTHROMBIN TIME PATIENT (test code = [...] systemic embolism. 3.0 - 4.5 Comments to Slab Grinder: NURSE WILL BRING SPECIMEN TO LABPTT ACTIVATED 2018-07-20 06:24:00* Test Item Value Reference Range Interpretation Comme nts PTT ACTIVATED (test code = APTT) 29.3 SECONDS 22.0-33.0 N Comments to Slab Grinder: NURSE WILL BRING SPECIMEN TO LABBASIC METABOLIC [...] CA) 9.6 MG/DL 8.4-10.2 N Comments to Slab Grinder: NURSE WILL BRING SPECIMEN TO LAB Comments to Slab Grinder: NURSE WILL BRING SPECIMEN TO [id number] 06:13:00* Test Item Value Reference Range Interpretation Comme nts MAGNESIUM (test code = MAG) 2.2 MG/DL 1.6-2.3 N Comments to Slab Grinder: NURSE WILL BRING SPECIMEN TO LAB Comments to Slab Grinder: NURSE WILL BRING SPECIMEN TO LABCBC W/AUTO [id number] 06:02:00 * Test Item Value Reference Range [...] = NRBC#) 0.00 K/mm3 0.0-0.1 N MRI Thoracic Spine W & WO/ DYEMRI Thoracic Spine W & WO/ DYEMRI NECK SPINE W/O & W/DYEMRI NECK SPINE W/O & W/DYEMRI BRAIN W/O & W/DYEMRI BRAIN W/O & W/DYE History and Physical Notes Date/Time Note Provider Source 2024-06-12 01:46:02 Images from the original note were not included. Patrice Team Admit H&P Date of Service: 06/12/2024 CHIEF COMPLAINT: chest pain HISTORY OF PRESENT ILLNESS Shivani Schuler is a 48 year old female with a PMH of anxiety, bipolar, depression, GERD, HLD, HTN, migraine, who presents with chest pain x 2 days. Pain worsened prompting her to go to the ED. In the ED, Labs: BMP WNL, AST/ALT 43/58, d dimer negative, trop negative, nt bnp negative, WBC 7.8, hgb 13.8, plt 272, Imaging: CXR no acute processes EKG NSR without ST changes Interventions: aspirin, 1L NaCl, tylenol PO, and nitroglycerin paste without relief. Of note, the ED physician consulted cardiology who recommended patient be discharged with isosorbide with outpatient follow up. ED physician's top differentials were muscle strain, costochondritis, myositis, pleurisy, epidemic pleurodynia, rib fracture, intercostal neuritis. She was transferred to [facility] for higher level of care. She reports 8/10 pressure like chest pain that radiates to her back. She states the pain is present at rest and worsens with physical activity. She is unable to walk a block or 2 flight of stairs without experiencing CP and shortness of breath. She recently established care with a tongue and quarter stitcher at [facility]. She had a TTE on 05/05/2024 which revealed concentric L ventricular hypertrophy with an EF between 55-60%, normal RV and LA size, mild MR and TR, normal aortic root and arch. She also had a heart cath 3 weeks ago which revealed 60%-70% ostial disease and was recommended medical management. Past medical history: Past Medical History: Diagnosis Date Anxiety disorder, unspecified Bipolar disorder, unspecified HLD (hyperlipidemia) HTN (hypertension) Major depressive disorder, single episode, unspecified Migraine Prior to Admission medications Medication Sig Start Date End Date Taking? Authorizing Provider BUSPIRONE 30 mg tablet TAKE 1 TABLET BY MOUTH EVERY MORNING AND IN EVENING 05/23/24 Renita Ferro MD DULOXETINE 60 mg capsule TAKE 1 CAPSULE BY MOUTH EVERY MORNING AND IN EVENING 05/23/24 Renita Ferro MD clonazePAM 1 mg tablet Take 1 tablet by mouth as needed for Other (panic). 05/02/24 Renita Ferro MD LAMOTRIGINE 25 mg tablet TAKE 1 TABLET BY MOUTH DAILY FOR 14 DAYS THEN 2 TABLETS DAILY 04/11/24 Renita Ferro MD lithium carbonate CR 450 mg SR tablet Take 2 tablets by mouth at bedtime. 03/21/24 Renita Ferro MD traZODone 50 mg tablet Take 1-2 tablets daily at bedtime for sleep 01/28/24 Davidson Sutherland MD omeprazole 40 mg capsule Take 1 capsule by mouth in the morning and 1 capsule in the evening. Take with meals. Do all this for 360 days. 07/26/23 07/20/24 Elidia Cordero MD wuugwpxzfx-dbrewpjgekwvw-vulk 50-325-40 mg tablet Take 1 tablet by mouth every 6 (six) hours as needed for Pain (scale 7-10) or Pain (scale 4-6) for up to 12 doses. 11/03/22 Dora Newman NP allopurinoL 100 mg tablet Take 1 tablet by mouth in the morning. Doctor Unassigned, [place] [facility] propranolol 80 mg tablet Take 1 tablet by mouth in the morning and 1 tablet in the evening. Doctor Unassigned, [place] [facility] losartan potassium (LOSARTAN ORAL) Take 20 mg by mouth. Doctor Unassigned, [place] [facility] Allergies Allergen Reactions Sulfa (Sulfonamide Antibiotics) Hives Past surgical history: Past Surgical History: Procedure Laterality Date SECTION COLONOSCOPY N/A 11/13/2022 Surgeon: Dominic Keita MD; Location: ENDOSCOPY ([facility]) OR LOCATION ESOPHAGOGASTRODUODENOSCOPY N/A 11/13/2022 Surgeon: Dominic Keita MD; Location: ENDOSCOPY ([facility]) OR LOCATION LAPAROSCOPIC APPENDECTOMY RI LAP, SURG, RADFREQ ABLATION OF UTERINE FIBROID(S), INC INTRAOP GUIDE-MONITOR Allergies: Allergies Allergen Reactions Sulfa (Sulfonamide Antibiotics) Hives Social history: Social History Socioeconomic History Marital status: Spouse name: Not on file Number of children: 2 Years of education: Not on file Highest education level: Not on file Occupational History Not on file Tobacco Use Smoking status: Never Passive exposure: Never Smokeless tobacco: Never Substance and Sexual Activity Alcohol use: Not Currently Drug use: Never Sexual activity: Not on file Other Topics Concern Not on file Social History Narrative Not on file Social Drivers of Health Financial Resource Strain: Not on file Food Insecurity: Not on file Transportation Needs: Not on file Physical Activity: Not on file Stress: Not on file Social Connections: Not on file Housing Stability: Not on file Family history: History reviewed. No pertinent family history. REVIEW OF SYSTEMS Per HPI PHYSICAL EXAMINATION Temp: [37.1 ?C (98.7 ?F)] Pulse: [51] Resp: [18] BP: (135)/(74) MAP (mmHg): [94] Body mass index is 33.73 kg/m?. General: AO& x3; NAD, resting comfortably in bed Eyes: PERRLA ENT: normal external inspection, mucous membranes moist, pharynx is non erythematous Neck: supple, tight paraspinal cervical and trapezius muscles Lungs: CTAB Cardio: RRR Abdomen: soft, non-tender Extremities: no lower extremity edema; no sacral edema; no rashes Skin: intact, warm, dry LABS: CBC WBC (10*3/?L) Date Value 06/12/2024 7.38 RBC (10*6/?L) Date Value 06/12/2024 4.43 PLT (10*3/?L) Date Value 06/12/2024 227 HGB (g/dL) Date Value 06/12/2024 12.5 HCT (%) Date Value 06/12/2024 36.3 There are no current results on file for these tests and/or test for 1 year. There are no current results on file for these tests and/or test for 1 year. BMP NA (mmol/L) Date Value 06/12/2024 133 (L) K (mmol/L) Date Value 06/12/2024 3.8 CALCIUM (mg/dL) Date Value 06/12/2024 8.8 CL (mmol/L) Date Value 06/12/2024 102 BUN (mg/dL) Date Value 06/12/2024 15 CREATININE (mg/dL) Date Value 06/12/2024 0.65 GLUCOSE (mg/dL) Date Value 06/12/2024 104 CO2 TOTAL (mmol/L) Date Value 06/12/2024 25 Hepatic Function Panel ALBUMIN (g/dL) Date Value 06/12/2024 4.1 T PROTEIN (g/dL) Date Value 06/12/2024 6.9 TOTAL BILI (mg/dL) Date Value 06/12/2024 0.5 BILI UNCON (mg/dL) Date Value 06/12/2024 0.2 BILI CONJ (mg/dL) Date Value 06/12/2024 0.0 ALT(SGPT) (U/L) Date Value 06/05/2018 55 (H) ALTv (U/L) Date Value 06/12/2024 60 (H) AST(SGOT) (U/L) Date Value 06/12/2024 36 ALK PHOS (U/L) Date Value 06/12/2024 129 (H) Coagulation Panel: Recent Labs 06/12/24 0227 PTINR 1.0 PTPAT 11.0 APTTPAT 35 ABG:There are no current results on file for these tests and/or test for 1 year. DM & HLD Panel:There are no current results on file for these tests and/or test for 1 year. EKG/ECHO: Ordered ekg Additional Imaging: No final results containing an impression from the past 48 hours were found. TTE Carotid studies Cardiac cath 05/2024 ASSESSMENT/PLAN: Shivani Schuler is a 48 year old female admitted to the hospital with: Nonspecific Chest pain CAD 60-70% ostial, medically managed HTN HLD Obesity Patient with reported hx of chest pain with decline in METS. Normal EKG, trop, nt pro bnp on ED report. Pain did not improve with ASA or nitroglycerin. Possible coronary vasospasms vs noncardiac chest pain vs deconditioning. Started amlodipine. Will obtain admission labs, EKG, place on tele and observe overnight. - admission labs - EKG - tele - K>4, Mg>2 - if work up unremarkable, cardiology outpatient follow up Muscle tightness: neck and back Flexeril & lidocaine patch for supportive care Recommended massage therapy outpatient Chronic conditions Mood disorders Anxiety Bipolar Depression GERD migraine -c/w home medications as tolerated Pain: mmpc Bowel Regimen: senna DVT Prophylaxis: hep Code status: full Kath Padgett MD Department of Internal Medicine 06/12/2024 02:57 Cosigned by Emmanuelle Gutierrez DO at 06/12/2024 3:34 AM CDT Associated attestation - Emmanuelle Gutierrez DO - 06/12/2024 3:34 AM CDT I personally examined the patient on the date of service and agree with Dr. Padgett's resident note as written with the following addition(s). I actively participated in the decision-making process. Please see the resident's note for additional details. -Pt with cardiac catheterization on May 26 showing non-obstructive disease transferred from outside ED for persistent chest pain despite emergency room care (received ASA & Nitroglycerin) -Pt had been hemodynamically stable at outside ED and upon arrival to [facility]. Diagnostic evaluation prior to transfer was within normal limits including troponin, d-dimer, and EKG -I requested cardiology input. Cardiology on-call faculty recommended to ED provider that the pt can be discharged from ED. However, ED provider did not feel comfortable discharging the patient despite cardiology recommendations given persistent chest pain and requested emergent transfer -Will obtain admission labs, EKG, and place on tele -Possible considerations are MSK and GI etiologies which may be contributing to her ongoing pain Emmanuelle Gutierrez DO [facility] [employer] | Department of Internal Medicine [facility] Notes Date/Time Note Provider Source 2024-09-01 08:32:28 BAKARI 07/26/2023 Medication not prescribed by provider. Marvin Eldridge [facility] 2024-08-29 14:20:15 Images from the original note were not included. Maddy Crenshaw MA [facility] Robert Willson [facility]2025-05-07 00:41:24Pending Results Scheduled Orders Name Type Priority Associated Diagnoses Orde r Schedule US abdomen limited Imaging Routine External constriction of abdominal wall, initial encounter Once for 1 Occurrences starting 06/17/2024 until 06/17/2024 Health Maintenance Due Date Last Done Comments CT Colonography 1977 Colonoscopy 1977 Colorectal Cancer Screening 1977 FIT-DNA 1977 FIT 1977 FOBT 1977 Sigmoidoscopy 1977 Annual Physical 1980 DTaP/Tdap/Td Vaccines (1 - Tdap) 1996 09/12/19 21 Hepatitis A Vaccines (1 of 2 - Risk 2-dose series) 1996 Hepatitis B Vaccines (1 of 3 - 19+ 3-dose series) 1996 Pneumococcal Vaccine: Pediat rics (0 to 5 Years) and At-Risk Patients (6 to 64 Years) (1 of 2 - PCV) 1996 Pap Smear 1998 Cervical Cancer Screening 07/04/2007 HPV/Cotest 07/04/2007 Mammogram 2017 Influenza Vaccine (Season Ended) 2024 11/14/19 21 Lipid Panel 05/26/2029 05/26/2024 Respiratory Syncytial Virus (RSV) Adult Series (1 - 1-dose 75+ series) 2052 HIB Vaccines Aged Out No longer eligi [...] on patient's age to complete this topic [facility]37[facility]58 00:41:24 Diagnosis External constriction of abd ominal wall, initial encounter [facility]Esonfrr6362-57-58 00:41:24 [facility] CentralKvbxvxc8630-93-02 14:48:22 Problem: Discharge Planning Goal: Adequate for discharge Outcome: Adequate for discharge Goal: Effective communication Outcome: Adequate for discharge Problem: Falls, Risk of Goal: Absence of falls Outcome: Adequate for discharge Problem: Respiratory Function - Impaired Goal: Able to cough effectively Outcome: Adequate for discharge Goal: Adequate oxygenation Outcome: Adequate for discharge Goal: Adequate work of breathing Outcome: Adequate for discharge Goal: Patent airway Outcome: Adequate for discharge Problem: Pain Goal: Control of pain at or below patient's documented comfort goal Outcome: Adequate for discharge Goal: Reduction in pain sensation Outcome: Adequate for discharge Problem: Discharge Planning Goal: Adequate for discharge Outcome: Adequate for discharge Goal: Adequate to move to next level of care Outcome: Adequate for discharge Goal: Knowledge of medication management Outcome: Adequate for discharge Melina Gilbert RNMain Campus Medical CenterFnloon8616-89-92 12:27:42 Images from the original note were not included. CARE MANAGEMENT Care Coordinators/Social Workers/CM Specialists/Utilization Review/Patient Placement & Transfer Center 06/12/2024 12:27 PM Care Management Discharge Disposition Note (DCDN) 5-2-1 Interventions: Disease specific education, Intensive medication reconciliation/management, Teach back, Clear discharge plan, Follow-up appointments 5-2-1 Providers: Physician, Medical Policy Specialist/Watch Crystal Edge Grinder, Nurse 5-2-1 Patient Capacity Improvements: Avoidance of adverse events/readmission Discussed with patient/patient’s family involved in decision making: Patient or family caregiver understands, and agrees with discharge plan Patient's family or support contact: HARINILESLEE Child [phone] Discharge Plan for ongoing care and services: Home/Caregiver Home Discharge Location: Discharge Disposition (for note) - 06/12/24 1222 Home/Caregiver address [address] [address] Is this an ACO Patient? No Other Living arrangements: [address] [facility] [address] Transportation (most recent) Discharge Disposition - 06/12/24 1222 Transportation Private Vehicle LESLEE SCHULER [phone] Discharge Medications Will the patient be able to obtain his medications? Yes Does the patient have transportation to to obtain the prescription medications? Yes Expected discharge date: 06/12/24 Time: 1600 Name of RN informed of discharge: Melina Gilbert Additional Information: Post-Acute Care Transition Education: Post-Acute Care Transition Education Completed: No CM/SW Name & Contact number: Rebecca Rose RN Ph. [phone] The following information has been provided to the facility noted above: reason for the patient discharge or transfer; patient’s physical and psychosocial status; summary of care, treatment, services provided to patient; and the patient progress toward goals. [facility]2025-04-14 10:46:16* Auth/Cert (Routine) Specialty Diagnoses / Procedures Referred By Contac t Referred To Contact Diagnoses Unstable angina (CMS/HCC) (HCC) I20.0 Procedures RI CATH PLMT L HRT & ARTS W/NJX & ANGIO IMG S&I LEFT HEART CATH / POSS PCI Lora Culver MD [address] [facility] [address] [place] [address] Phone: tel: fax: Referral ID Status Reason Start Date Expiration Date Visits Re quested Visits Authorized [id number] 05/23/2024 1 1 [facility]45 10:46:16Pending Results Scheduled Orders Name Type Priority [...] on patient's age to complete this topic [facility]hljkrp7258-68-95 10:46:16 [facility]csdqzv0727-87-12 10:46:16 Diagnosis Unstable angina (CMS/HCC) (HCC) - Primary Intermediate coronary syndrome [facility]bmltvy1532-27-98 10:46:16 [facility] CentralFbkygzj9615-36-67 10:28:40 Images from the original note were not included. 13549 Procedural Sedation Procedural sedation is medicine to [...] all the medicines you take. This includes zmrt-uel-lsgusuu medicines, such as ibuprofen. It also includes [...] awakened Last Reviewed Date: 2021 00:00:00 ? [id number] [employer]. All rights reserved. This information is not intended as a substitute for professional medical care. Always follow your healthcare professional's instructions. [facility]2025-04-14 10:26:16 Images from the original note were not included. Angioplasty and Stenting: Understanding the Risks - Video Learn the possible risks of angioplasty and stenting. To view the video go to this web address: [email or web address] Or, scan this QR code with your smart phone ? [facility]2025-02-19 00:00:00 [facility]2025-02-05 00:00:00 [facility]2024-12-18 00:00:00 [facility]2024-12-06 00:00:00 [facility]2024-11-22 00:00:00 [facility]2024-10-29 00:00:00 [facility]2024-10-15 00:00:00 [facility]2024-06-26 15:01:26 Order for Monoferric Infusion was faxed to Aileen Gipson, fax # fax- [phone]. Fax confirmed as received. I called patient to inform her that order was sent. Kath Westbrook [place] 769334-06-26 12:08:22 I ordered IV iron if you dont mind faxing it. Thank you! [place] 67682-06-20 15:54:54 Yes if you can send over the last infusion order we sent again to [facility]. Otherwise we can do it when in back next week [place] 67682-06-17 15:40:16 Patient called stating that her GI [...] of this in BAKARI note. Kath Westbrook [place] 11911-05-20 12:20:48 I called patient and explained that [...] with Dr. Cordero on 07/26/23. Kath Westbrook [facility] CenterRamgkz3354-13-01 10:35:15 Pt is requesting orders for an [...] constantly declining. Pt was life flight to [facility] recently due to a stroke. Pls advise. Vega GregoryMain Campus Medical CenterLqtxku6800-41-60 02:18:19 Rn went over poc and discharge teaching with pt prior to departure. Iv discontinued and discharge packet went over with pt. Pt verbalizes understanding of education and medications. Pt states that no belogings were left in room. Pt and family departed to [facility]. Pt using ed wheelchair Lizandro Bah [facility] CenterArxpqc9979-45-10 01:38:45 Patient currently sitting up, drinking water. Patient family to assist patient in changing clothes and then to perform walk test. Patient pending walk test and results at this time. Kiley Darling [facility] CenterVmitwf0609-88-50 01:29:14 Dr. Pabon at bedside [facility] CenterAnuxru1885-15-38 00:00:00 Patient currently resting in ED stretcher, accompanied by visitors at this time. Patient awaiting clinical sobriety for d/c. NAD noted, VSS, RR e/u, bed locked in lowest position with side rails elevated x 2. Patient family denies additional needs at this time, will notify staff if needs anything. [facility]2024-04-25 22:44:51 Pt straight cath x2 RN per [...] assess and tx per plan of care [facility] Angela Larsen [facility] CenterDlhioe0938-24-03 22:30:00 Report taken from Armand PATEL. Patient [...] VSS, RR e/u. See neuro focused assessment. [place] 021254-04-25 22:06:00 STROKE ALERT CANCELLED per neuro Paged out @ 2206 [place] 021254-04-25 22:04:19 Neuro resident verbalizes he is canceling the stroke alert. T Puneet Hussein RNMain Campus Medical CenterDumkbe4508-91-10 22:04:00 Stroke orders cancelled per neurology faculty and Dr. Pabon at this time. [place] 03561-04-25 21:54:[address]. Reflexes intact, will not follow commands or speak, however. [place] 021254-04-25 21:40:[address] via stretcher, pt connected to serial VS and cardiac monitoring. Neuro resident in CT In CT, Pt appeared to be selectively following commands and opening eyes. Pt was addressed in both New Zealander and Luxembourger, yet did not answer questions verbally nor with any head shakes/ nods. Pt resp e/u on RA w equal chest rise and fall. Skin warm dry approp tone. When pt opened eyes on command, PERRLA 4mm. Labs drawn. [place] 021254-04-25 21:39:01 Shivani Schuler is a 47 year [...] pain, VSWNL, NAD noted. Pt to CT [facility]2024-04-25 21:35:00 Shivani Schuler is a 47 year old female who presents from home([place]) via [facility] after pt's daughter heard [...] back and forth and squinting eyes shut. [facility]2024-04-25 21:32:00 [facility] Emergency Department Note Patient Name: Shivani Schuler Date of : 1975 47 year old female Treatment Room: [address] [place] [address] Primary Care Physician: JAE Holloway Patient Escorted by: Self [9] Mode of Arrival: Air EMS - [facility] Air Med [16] EMS Treatment Prior to ED Arrival: PERSONNEL INTERVIEWER treatment: None Travel and Exposure Screening: Symptoms [...] The superior cerebellar arteries are patent. The [employer] are patent bilaterally. No sizable posterior communicating [...] The superior cerebellar arteries are patent. The [employer] are patent bilaterally. No sizable posterior communicating [...] I 0.003 <=0.034 ng/mL LITHIUM - Normal [place] 0.6 0.6 - 1.2 mmol/L ETHANOL ALCOHOL [...] (IMMUNOASSAY) - COMPREHENSIVE DRUG SCREEN W/O REFLEX [place] O2 Nasal Cannula Orders Placed This Encounter [...] 06/08/23 0136 Marysol Pabon DO 06/08/23 0147 [facility] EMERGENCY PHYSICIAN [facility]2024-04-22 10:50:05 I called patient to ascertain what medication she is referring to that was Rxd but not received. No answer, I LVM with my call back number. Kath Westbrook [facility] CenterBtsyta1650-90-99 11:48:54 Gastroenterolgy appt has been placed. Jessica Pang [place] 769334-03-29 16:55:45 I called patient to follow-up from [...] Dr. Boston for these symptoms. Kath Westbrook [place] 769334-03-27 16:58:43 Pt called about her Iron infusion needed. GI provider requested patient's PCP follow up with this request. At initial visit, patient's GI provider did order Iron Infusion: 11/23/22: Order for MONOFERRIC infusion sent to [facility], fax # [phone]. Fax was confirmed as received. The above [...] medications that can help her. Kath Westbrook [facility] CenterLskacz5895-40-35 09:11:36 I called patient to relay her GI provider's msg. Patient understands and asked if I could send last order for iron infusion to show her PCP so it can be done thru their office. Last order was sent to patient's [facility] as per her request. L ADMINISTRATIVE ASSISTANT Kath Westbrook [facility] CenterCbaseo2902-73-69 08:51:07 Antony chase I would but I think her PCP should be able to do this and because of previous issues with the order will let them handle it. It should be possible for PCP to do it if they put in a little effort [facility]2024-01-25 16:20:43 I called patient who stated she received a chart msg from Dr. Cordero stating her iron was low and recommended she take infusion. Patient needs another referral for the iron infusion at [facility]. Patient stated her PCP has no clue on how to order infusion. Patient states GI provider did put in the last order that was done at [facility]. 11/23/22: Order for MONOFERRIC infusion sent to [facility], fax # [phone]. Fax was confirmed as received. L ADMINISTRATIVE ASSISTANT Kath Westbrook RNMain Campus Medical CenterCztmfm5403-72-96 15:42:27 Shivani Schuler is a 47 year old female Pt is calling requesting for referral to be placed to [facility] in regards to getting iron infusion done. Please call the pt to discuss. Please advise. L ADMINISTRATIVE ASSISTANT Daxa ScottEileen [place] 360574-01-04 10:30:00 Images from the original note were not included. Venipuncture collection performed by clean technique on the right anticubitus and back of left hand. Total of 2 attempts were made. Slight pressure and a bandage/dressing were applied to the site(s). The patient experienced no complications. The following specimens were processed according to instructions and sent to [facility] laboratories per lab order on 02/15/2023 : LT BLUE SST 1 RED LAV PPT DK GREEN (LiHep) DK GREEN (SodH) SUE DK BLUE (K2) DK BLUE (S) ACD Blood Culture NIPT/NTD [facility]2023-12-01 21:52:03 Dr. Cordero, Please call patient and see how we can help. ED precautions if worsening symptoms. Dominic [facility] IM-GASTROENTEROLOGY STAFFMain Campus Medical CenterCvupay6479-49-17 08:30:00 Images from the original note were not included. Venipuncture collection performed by clean technique on the left anticubitus. Total of 1 attempts were made. Slight pressure and a bandage/dressing were applied to the site(s). The patient experienced no complications. The following specimens were processed according to instructions and sent to [facility] laboratories LT BLUE Lt Green SST 2 RED LAV PPT DK GREEN (L) DK GREEN (S)/// Fibrosure set BLUE,SST & LAV SUE DK BLUE (K2) DK BLUE (S) ACD RST BLOOD CULTURE NIPT or ALLOSURE VERIFYNOW URINE URINE CULTURE APTIMA URINE STOOL Monogram Z plasma preservative tube (call lab for tube)[facility] Vasoactive Intestinal Peptide (call lab for tube)[facility] Samantha Vinson [facility]2023-08-24 10:15:00 Images from the original note were not included. Venipuncture collection performed by clean technique on the left anticubitus. Total of 1 attempts were made. Slight pressure and a bandage/dressing were applied to the site(s). The patient experienced no complications. The following specimens were processed according to instructions and sent to [facility] laboratories per lab order on 10/05/2022: LT BLUE SST 1 RED LAV 2 PPT DK GREEN (LiHep) DK GREEN (SodH) SUE DK BLUE (K2) DK BLUE (S) ACD Blood Culture NIPT/NTD [facility] CenterMckeuv0421-05-62 06:55:[id number] [place] [address] PATIENT NAME: SHIVANI SCHULER ADMIT DATE: 07/20/18 ACCOUNT NO: [id number] ROOM NO: AGE: 43 REPORT TYPE: CARDIAC CATHETERIZATION REPORT SEX: F ADMITTING PHYSICIAN: ATTENDING PHYSICIAN:Thea Harper MD PROCEDURE DATE: 07/20/2018 REFRIGERATION INSTALLER: Thea Harper MD TITLE OF THE PROCEDURE: [...] femoral artery area for local anesthesia. A 6-Zimbabwean sheath was placed in the right common [...] complications. She was transferred back [facility] area for observation to be discharged later on today on medical therapy PATIENT NAME: SHIVANI SCHULER and risk factor modification. Dictated By: Thea Harper MD WT: CATH:ADRIANA/KIAN/RIGOBERTO Conf#: [id number]/DID#: [id number] Authenticated by Thea Harper MD On 07/20/2018 08:15:22 AM at 0815 PATIENT NAME: SHIVANI SCHULER 06:06:[id number] [address] PATIENT NAME: SHIVANI SCHULER ADMIT DATE: 07/20/18 ACCOUNT NO: [id number] ROOM NO: AGE: 43 REPORT TYPE: ELECTROCARDIOGRAM SEX: F ADMITTING PHYSICIAN: ATTENDING PHYSICIAN:Thea Harper MD Order: [id number] Test Reason : CAD Test Date/Time Stamp: [...] HARPER at 0921 PATIENT NAME: SHIVANI SCHULER 18:55:[id number] [address] PATIENT NAME: SHIVANI SCHULER ADMIT DATE: 07/20/18 ACCOUNT NO: [id number] ROOM NO: AGE: 43 REPORT TYPE: HISTORY AND PHYSICAL SEX: F ADMITTING PHYSICIAN: ATTENDING PHYSICIAN:Thea Harper MD ADMISSION DATE: 07/20/2018 REFRIGERATION INSTALLER: Thea Harper MD REASON FOR ADMISSION: Chest [...] By: Thea Harper MD WT: HP:TRAVIS/KIAN/RIGOBERTO Conf#: [id number]/DID#: [id number] Authenticated by Thea Harper MD On 07/25/2018 07:20:46 AM at 0721 PATIENT NAME: SHIVANI SCHULER
[2024-10-08 11:02] LABS: Absolute Lymphocytes (CBC) 1.5 K/uL (0.7-4.9); Hematocrit 37.1 % (36.0-45.0); Hemoglobin 12.8 g/dL (12.0-15.0); MCH 30.7 pg (27.0-35.0); MCHC 34.5 g/dL (32.0-36.0); MCV 89.0 fL (80-100); MPV 9.6 fL (7.6-11.3); Nucleated RBC Absolute Count 0.0 (0-0); Nucleated Red Blood Cells % 0.0 % (0-0); RBC Red Blood Cell Count 4.17 M/uL (3.86-4.86); White Blood Count 7.20 thou/uL (4.3-10.9)
[2024-10-08 11:09] LABS: PT Prothrombin Time 12.3 SECONDS (10-13.0); Protime INR 1.09
[2024-10-08 11:24] LABS: ALT/SGPT 66 U/L (13-56); AST/SGOT 26 U/L (15-37); Albumin 3.4 g/dL (3.4-5.0); Albumin/Globulin Ratio 1.0 (1.1-1.8); Alkaline Phosphatase 133 U/L (45-117); Anion Gap 8.2 mEq/L (5.0-15.0); BUN Blood Urea Nitrogen 11 mg/dL (7-18); Globulin 3.3 g/dL (2.3-3.5); Glucose Level 106 mg/dL (74-106); Lipase 35 U/L (13-75); Magnesium 2.4 mg/dL (1.6-2.4); NT PRO-BNP 38 pg/mL (<125); Potassium 4.2 mEq/L (3.5-5.1); Thyroid Stimulating Hormone 0.598 uIU/mL (0.358-3.740)
[2024-10-08 11:26] LABS: Bilirubin Indirect, Calculated 0.3 mg/dL (0.2-0.8); Troponin High Sensitivity < 3.0 pg/mL (<58.9)
--- NOTE | 2024-10-08 11:29 | RAD REPORT ---
EXAMINATION: ONE VIEW CHEST XR CLINICAL INDICATION: Female, 49 years old.,Cough;Palpitations TECHNIQUE: Frontal chest projection is submitted. Examination is limited by patient positioning and t echnique. COMPARISON: 05/27/2024 FINDINGS: The lungs are well inflated and clear. No pneumothorax or sizable effusion. The heart is normal in s ize. Mediastinal contours are unremarkable. IMPRESSION: No acute intrathoracic abnormalities.
--- NOTE | 2024-10-08 12:26 | RAD REPORT ---
EXAM: CT Chest For Pe Angio TECHNIQUE: CT angiogram of the chest was performed following intravenous contrast administration, inc luding sagittal and coronal as well as maximum intensity projection reformats. One or more of the following dose reduction techniques were used: Automated exposure control, adjustment of the mA and k V according to patient size, and iterative reconstruction. Unless otherwise specified, incidental findings do not require dedicated imaging follow-up. INDICATION: [facility] MAIN CHEST PAIN Bed Name: 3 N COMPARISON: 02/24/2024. FINDINGS: LINES/TUBES: None. PULMONARY ARTERIES: Main pulmonary arteries are normal in caliber. No filling defects within the pul monary arteries to suggest pulmonary embolus. LUNGS AND AIRWAYS: The lungs and central airways are normal without focal abnormality. PLEURA: No effusion or pneumothorax. HEART AND MEDIASTINUM: The visualized thyroid gland is normal. No mediastinal, hilar, or axillary lym phadenopathy. Heart is unremarkable. No pericardial effusion. SOFT TISSUES AND BONES: No acute osseous abnormality. No significant soft tissue finding. UPPER ABDOMEN: Unremarkable. IMPRESSION: No evidence of acute central pulmonary emboli. No suspicious intrathoracic findings..
--- NOTE | 2024-10-08 12:41 | EDPHYS ---
Physician Documentation [facility] Name: Shivani Lagunas Age: 49 yrs Sex: Female : 1975 Arrival Date: 10/08/2024 Time: 10:13 Bed 3 Private MD: ED Physician Bal Dowling HPI: 10/08 12:29 This 49 yrs old Female presents to ER via Ambulatory with complaints of Chest lori Pain. 12:29 The patient or guardian reports chest pain that is located primarily in the substernal lori area, anterior chest wall, right. Onset: this morning, today. The pain does not radiate. Associated signs and symptoms: The patient has no apparent associated signs or symptoms. The chest pain is described as a pressure. Severity of pain: At its worst the pain was moderate in the emergency department the pain is unchanged. The patient has not experienced similar symptoms in the past. 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 - Infectious Disease History:: Denies. - Social history:: Smoking status: Patient denies any tobacco usage or history of. - Family history:: not pertinent. ROS: 12:29 Constitutional: Negative for fever, chills, and weight loss, Eyes: Negative for injury, lori pain, redness, and discharge, ENT: Negative for injury, pain, and discharge, Neck: Negative for injury, pain, and swelling, Respiratory: Negative for shortness of breath, cough, wheezing, and pleuritic chest pain, Abdomen/GI: Negative for abdominal pain, nausea, vomiting, diarrhea, and constipation, Back: Negative for injury and pain, : Negative for injury, bleeding, discharge, and swelling, MS/Extremity: Negative for injury and deformity, Skin: Negative for injury, rash, and discoloration, Neuro: Negative for headache, weakness, numbness, tingling, and seizure, Psych: Negative for depression, anxiety, suicide ideation, homicidal ideation, and hallucinations, Allergy/Immunology: Negative for hives, rash, and allergies, Endocrine: Negative for neck swelling, polydipsia, polyuria, polyphagia, and marked weight changes, Hematologic/Lymphatic: Negative for swollen nodes, abnormal bleeding, and unusual bruising, 12:29 Cardiovascular: Positive for chest pain, Exam: 12:29 Constitutional: This is a well developed, well nourished patient who is awake, alert, lori and in no acute distress. Head/Face: Normocephalic, atraumatic. Eyes: Pupils equal round and reactive to light, extra-ocular motions intact. Lids and lashes normal. Conjunctiva and sclera are non-icteric and not injected. Cornea within normal limits. Periorbital areas with no swelling, redness, or edema. ENT: Nares patent. No nasal discharge, no septal abnormalities noted. Tympanic membranes are normal and external auditory canals are clear. Oropharynx with no redness, swelling, or masses, exudates, or evidence of obstruction, uvula midline. Mucous membranes moist. Neck: Trachea midline, no thyromegaly or masses palpated, and no cervical lymphadenopathy. Supple, full range of motion without nuchal rigidity, or vertebral point tenderness. No Meningismus. Chest/axilla: Normal chest wall appearance and motion. Nontender with no deformity. No lesions are appreciated. Cardiovascular: Regular rate and rhythm with a normal S1 and S2. No gallops, murmurs, or rubs. Normal PMI, no JVD. No pulse deficits. Respiratory: Lungs have equal breath sounds bilaterally, clear to auscultation and percussion. No rales, rhonchi or wheezes noted. No increased work of breathing, no retractions or nasal flaring. Abdomen/GI: Soft, non-tender, with normal bowel sounds. No distension or tympany. No guarding or rebound. No evidence of tenderness throughout. Back: No spinal tenderness. No costovertebral tenderness. Full range of motion. Skin: Warm, dry with normal turgor. Normal color with no rashes, no lesions, and no evidence of cellulitis. MS/ Extremity: Pulses equal, no cyanosis. Neurovascular intact. Full, normal range of motion., bilateral aka Neuro: Awake and alert, GCS 15, oriented to person, place, time, and situation. Cranial nerves II-XII grossly intact. Motor strength 5/5 in all extremities. Sensory grossly intact. Cerebellar exam normal. Normal gait. Psych: Awake, alert, with orientation to person, place and time. Behavior, mood, and affect are within normal limits. 12:29 ECG was reviewed by the Attending Physician. Vital Signs: 10:26 BP 129 / 65; Pulse 73; Resp 17; Temp 98; Pulse Ox 99% ; Weight 102.97 kg; Height 5 ft. jl7 6 in. ; Pain 6/10; 11:00 BP 109 / 61; Pulse 63; Resp 16; Pulse Ox 100% on R/A; jp5 12:00 BP 101 / 64; Pulse 55; Resp 16; Pulse Ox 100% on R/A; jp5 13:00 BP 124 / 76; Pulse 59; Resp 18; Pulse Ox 99% on R/A; jp5 13:58 BP 106 / 51 RA Supine (auto/lg); Pulse 59; Resp 16; Temp 98(O); Pulse Ox 100% on R/A; jp5 10:26 Body Mass Index 36.64 (102.97 kg, 167.64 cm) jl7 10:26 Pain Scale: Adult jl7 MDM: 10:22 Medical Screening Exam initiated lori 12:32 Differential diagnosis: abnormal EKG, acute myocardial infarction, acute pericarditis, lori anxiety, coronary artery disease cholecystitis, Cholelithiasis costochondritis, pancreatitis, peptic ulcer disease, pericarditis, pleurisy, pneumonia, pneumothorax, pulmonary embolus, stable angina, thoracic aortic disection, unstable angina. HEART Score: History: Moderately Suspicious (1), ECG: Non specific repolarization disturbance / LBTB / PM (1), Age: > 45 and < 65 years (1), Risk Factors: > or = 3 Risk factors for atherosclerotic disease (2), [Hypertension] [+ Family HX] [Obesity] Troponin: < or = 1 x Normal Limit (0). The patient was given aspirin in the Emergency Department. AXEL Risk Score: 1 - Three or more CAD risk factors, [Family Hx], [HTN], [DM], 1- Known CAD, 1 - ASA use in past 7 days, 1 - Recent [<24hrs] Severe Angina, TOTAL SCORE = 4. Data reviewed: vital signs, nurses notes, lab test result(s), EKG, radiologic studies, CT scan, plain films. Consideration of Admission/Observation Patient was admitted/placed on observation. Escalation of care including admission/observation considered. I considered the following discharge prescriptions or medication management in the emergency department Medications were administered in the Emergency Department. See MAR. Independent interpretation of the following test(s) in the Emergency Department EKG: See my EKG interpretation above. Test considered but Not performed: Ultrasound no 2 d echo. 10/08 10:27 Order name: Basic Metabolic Panel; Complete Time: 12:27 [facility] 10/08 10:27 Order name: CBC with Diff; Complete Time: 12:27 [facility] 10/08 10:27 Order name: LFT's; Complete Time: 12:27 [facility] 10/08 10:27 Order name: Magnesium; Complete Time: 12:27 [facility] 10/08 10:27 Order name: NT PRO-BNP; Complete Time: 12:27 [facility] 10/08 10:27 Order name: PT-INR; Complete Time: 12:27 [facility] 10/08 10:27 Order name: Troponin HS; Complete Time: 12:27 [facility] 10/08 10:27 Order name: Lipase; Complete Time: 12:27 [facility] 10/08 10:27 Order name: TSH; Complete Time: 12:27 [facility] 10/08 13:49 Order name: Magnesium [facility] 10/08 13:49 Order name: Phosphorus [facility] 10/08 13:49 Order name: T4 Free [facility] 10/08 13:49 Order name: Thyroid Stimulating Hormone [facility] 10/08 13:49 Order name: Basic Metabolic Panel [facility] 10/08 13:49 Order name: Basic Metabolic Panel [facility] 10/08 13:49 Order name: CBC with Automated Diff [facility] 10/08 13:49 Order name: CBC with Automated Diff [facility] 10/08 13:49 Order name: Lipid Profile [facility] 10/08 13:49 Order name: Lipid Profile [facility] 10/08 13:49 Order name: Troponin High Sensitivity [facility] 10/08 13:49 Order name: Troponin High Sensitivity [facility] 10/08 13:49 Order name: Troponin High Sensitivity [facility] 10/08 10:27 Order name: XRAY Chest (1 view); Complete Time: 12:27 [facility] 10/08 10:27 Order name: CT Chest For PE Angio; Complete Time: 12:27 [facility] 10/08 13:53 Order name: Echo with Doppler [facility] 10/08 13:45 Order name: CONS Physician Consult [facility] 10/08 10:27 Order name: Cardiac monitoring; Complete Time: 10: [facility] 10/08 10:27 Order name: EKG - Nurse/Tech; Complete Time: 10: [facility] 10/08 10:27 Order name: IV Saline Lock; Complete Time: 10: [facility] 10/08 10: Order name: Labs collected and sent; Complete Time: 10: [facility] 10/08 10:27 Order name: O2 Per Protocol; Complete Time: 10: [facility] 10/08 10: Order name: O2 Sat Monitoring; Complete Time: : [facility] EC: Rate is 74 beats/min. Rhythm is regular. QRS [place] is Normal. DE interval is normal. QRS lori interval is normal. QT interval is normal. No Q waves. T waves are Normal. Clinical impression: NSR w/ Non-specific ST/T Changes and No evidence of ischemia. Interpreted by me. Reviewed by me. Administered Medications: 10:52 Drug: Famotidine IVP 20 mg IVP once; dilute with 10 mL 0.9% NaCl; give over 2 minutes jp5 Route: IVP; Site: left antecubital; 11:22 Follow up: Response: No adverse reaction jp5 10:52 Drug: Aspirin PO Chewable Tablet 324 mg PO once; 81 mg tablets x 4 Route: PO; jp5 11:22 Follow up: Response: No adverse reaction jp5 10:52 Drug: NS 0.9% IV 1000 ml IV at 1000 ml once; to be given as a bolus over 60 minutes jp5 Route: IV; Rate: 1000 ml; Site: left antecubital; 11:52 Follow up: Response: No adverse reaction; IV Status: Completed infusion; IV Intake: jp5 1000ml 13:05 Drug: Enoxaparin Sub-Q 1 mg/kg Sub-Q once Route: Sub-Q; Site: abdomen; jp5 13:35 Follow up: Response: No adverse reaction jp5 Disposition Summary: 10/08/24 12:40 Hospitalization Ordered Notes: Hospitalization Status: Observation lori Provider: Anoop Andrews cha Location: Telemetry/MedSur (observation) lori Condition: Fair lori Problem: new lori Symptoms: have improved lori Bed/Room Type: Standard lori Room Assignment: 430(10/08/24 13:49) bd Diagnosis - Chest pain, unspecified lori - Obesity, unspecified lori - Angina pectoris, unspecified lori - Palpitations lori Forms: - Medication Reconciliation Form lori - SBAR form lori - Leadership Thank You Letter lori Signatures: Dispatcher [employer] EDMS MarciBenita Bal Doyle MD MD cha Leal, Jahala RN RN jl7 Lauren Reece RN RN jp5 Corrections: (The following items were deleted from the chart) 10:28 10:28 BASIC METABOLIC PANEL+C.LAB.BRZ ordered. EDMS EDMS 10:28 10:28 CBC+H.LAB.BRZ ordered. EDMS EDMS 10:28 10:28 HEPATIC FUNCTION+C.LAB.BRZ ordered. EDMS EDMS 10:28 10:28 MAGNESIUM+C.LAB.BRZ ordered. EDMS EDMS 10:28 10:28 PROBNP+C.LAB.BRZ ordered. EDMS EDMS 10:28 10:28 PROTIME (+INR)+COAG.LAB.BRZ ordered. EDMS EDMS 10:28 10:28 Troponin High Sensitivity+C.LAB.BRZ ordered. EDMS EDMS 10:28 10:28 LIPASE+C.LAB.BRZ ordered. EDMS EDMS 10:28 10:28 THYROID STIMULAT HORMONE+C.LAB.BRZ ordered. EDMS EDMS 10:28 10:28 Chest Single View+RAD.RAD.BRZ ordered. EDMS EDMS 10:28 10:28 Chest For PE Angio+CT.RAD.BRZ ordered. EDMS EDMS 10:31 10:28 Allergies: Nifediac CC; jl7 jl7 10:31 10:28 PSHx: Cholecystectomy (Unknown); jl7 13:49 12:40 lori bd
--- NOTE | 2024-10-08 12:41 | ER ---
Nurse's Notes [facility] Name: Shivani Lagunas Age: 49 yrs Sex: Female : 1975 Arrival Date: 10/08/2024 Time: 10:13 Bed 3 Private MD: Diagnosis: Chest pain, unspecified;Obesity, unspecified;Angina pectoris, unspecified;Palpitations Presentation: 10/08 10:26 Chief complaint: Patient states: Chest pressure, radiates to left arm and back. jl7 Coronavirus screen: At this time, the client does not indicate any symptoms associated with coronavirus-19. Ebola Screen: No symptoms or risks identified at this time. Initial Sepsis Screen: Does the patient meet any 2 criteria? No. Patient's initial sepsis screen is negative. Does the patient have a suspected source of infection? No. Patient's initial sepsis screen is negative. Risk Assessment: Do you want to hurt yourself or someone else? Patient reports no desire to harm self or others. Onset of symptoms was October 08, 2024. 10:26 Method Of Arrival: Ambulatory jl7 10:26 Acuity: ALICIA 2 jl7 Triage Assessment: 10:28 General: Appears in no apparent distress. uncomfortable, Behavior is calm, cooperative, jl7 appropriate for age. 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 - Infectious Disease History:: Denies. - Social history:: Smoking status: Patient denies any tobacco usage or history of. - Family history:: not pertinent. Screenin:45 [facility] ED Fall Risk Assessment (Adult) History of falling in the last 3 months, jp5 including since admission No falls in past 3 months (0 pts) Confusion or Disorientation No (0 pts) Intoxicated or Sedated No (0 pts) Impaired Gait No (0 pts) Mobility Assist Device Used No (0 pt) Altered Elimination No (0 pt) Score/Fall Risk Level 0 - 2 = Low Risk Oriented to surroundings, Maintained a safe environment, Educated pt \T\ family on fall prevention, incl call for assistance when getting out of bed, Assessed \T\ reinforced patient's understanding of fall precautions, Hourly rounding (assess needs \T\ fall precautionary measures) done. Abuse screen: Denies threats or abuse. Denies injuries from another. Nutritional screening: No deficits noted. Tuberculosis screening: No symptoms or risk factors identified. Assessment: 10:24 Pain: Complains of pain in chest Quality of pain is described as pressure. Neuro: No [facility] deficits noted. Level of Consciousness is awake, alert, obeys commands, Oriented to person, place, time, situation. Cardiovascular: Reports chest pain, Rhythm is regular Chest pain quality is pressure, is located in left chest wall. Respiratory: No deficits noted. 10:45 Reassessment: Patient appears in no apparent distress at this time. Patient and/or 5 family updated on plan of care and expected duration. Pain level reassessed. 11:45 Reassessment: Patient appears in no apparent distress at this time. Patient and/or 5 family updated on plan of care and expected duration. Pain level reassessed. Patient is alert, oriented x 3, equal unlabored respirations, skin warm/dry/pink. Patient states symptoms have improved. 12:45 Reassessment: Patient appears in no apparent distress at this time. No changes from [facility] previously documented assessment. Patient and/or family updated on plan of care and expected duration. Pain level reassessed. Patient is alert, oriented x 3, equal unlabored respirations, skin warm/dry/pink. Patient denies pain at this time. 13:45 Reassessment: Patient appears in no apparent distress at this time. No changes from 5 previously documented assessment. Patient and/or family updated on plan of care and expected duration. Pain level reassessed. Patient is alert, oriented x 3, equal unlabored respirations, skin warm/dry/pink. Patient denies pain at this time. Vital Signs: 10:26 BP 129 / 65; Pulse 73; Resp 17; Temp 98; Pulse Ox 99% ; Weight 102.97 kg; Height 5 ft. jl7 6 in. ; Pain 6/10; 11:00 BP 109 / 61; Pulse 63; Resp 16; Pulse Ox 100% on R/A; jp5 12:00 BP 101 / 64; Pulse 55; Resp 16; Pulse Ox 100% on R/A; jp5 13:00 BP 124 / 76; Pulse 59; Resp 18; Pulse Ox 99% on R/A; jp5 13:58 BP 106 / 51 RA Supine (auto/lg); Pulse 59; Resp 16; Temp 98(O); Pulse Ox 100% on R/A; jp5 10:26 Body Mass Index 36.64 (102.97 kg, 167.64 cm) jl7 10:26 Pain Scale: Adult jl7 ED Course: 10:21 Patient arrived in ED. lori 10:21 Bal Dowling MD is Attending Physician. lori 10:22 EKG done, by ED staff, reviewed by Bal Dowling MD. jp5 10:24 Patient has correct armband on for positive identification. Placed in gown. Bed in low jp5 position. Call light in reach. Side rails up X 1. Provided Education on: call light. herb digger on. Pulse ox on. NIBP on. 10:27 Triage completed. jl7 10:28 Arm band placed on left wrist. jl7 10:40 XRAY Chest (1 view) In Process Unspecified. EDMS 10:45 Inserted saline lock: 20 gauge in left antecubital area, using aseptic technique. Blood jp5 collected. Flushed with 10 mL NS. 10:51 TSH Sent. jp5 10:51 Basic Metabolic Panel Sent. jp5 10:51 CBC with Diff Sent. jp5 10:51 LFT's Sent. jp5 10:51 Magnesium Sent. jp5 10:51 NT PRO-BNP Sent. jp5 10:51 PT-INR Sent. jp5 10:51 Troponin HS Sent. jp5 11:15 No provider procedures requiring assistance completed. jp5 11:54 CT Chest For PE Angio In Process Unspecified. EDMS 12:39 Anoop Andrews MD is Hospitalizing Provider. lori 14:02 Report given to med surg, 4th floor. SBAR, enriquez ticket, and EKG faxed. 4th floor jp5 charge nurse confirmed received. 14:37 Patient admitted, IV remains in place. jp5 Administered Medications: 10:52 Drug: Famotidine IVP 20 mg IVP once; dilute with 10 mL 0.9% NaCl; give over 2 minutes jp5 Route: IVP; Site: left antecubital; 11:22 Follow up: Response: No adverse reaction jp5 10:52 Drug: Aspirin PO Chewable Tablet 324 mg PO once; 81 mg tablets x 4 Route: PO; jp5 11:22 Follow up: Response: No adverse reaction jp5 10:52 Drug: NS 0.9% IV 1000 ml IV at 1000 ml once; to be given as a bolus over 60 minutes jp5 Route: IV; Rate: 1000 ml; Site: left antecubital; 11:52 Follow up: Response: No adverse reaction; IV Status: Completed infusion; IV Intake: jp5 1000ml 13:05 Drug: Enoxaparin Sub-Q 1 mg/kg Sub-Q once Route: Sub-Q; Site: abdomen; jp5 13:35 Follow up: Response: No adverse reaction jp5 Medication: 11:16 VIS not applicable for this client. jp5 Intake: 11:52 IV: 1000ml; Total: 1000ml. jp5 Outcome: 12:40 Decision to Hospitalize by Provider. lori 14:36 Admitted to Med/surg accompanied by tech, via wheelchair, with chart, jp5 14:36 Condition: improved 14:36 Instructed on the need for admit, 14:43 Patient left the ED. jp5 Signatures: Dispatcher [employer] EDBal Degroot MD MD cha Leal, Jahala, RN RN jl7 Lauren Reece, RN RN jp5 Corrections: (The following items were deleted from the chart) 10: 10:28 Allergies: Nifediac CC; jl7 jl7 10:31 10:28 PSHx: Cholecystectomy (Unknown); jlNadia jl7
[2024-10-08] MEDS ORDERED: ENOXAPARIN 100 MG/ML SYR SQ ONE (13:04)
[2024-10-08] MEDS ORDERED: HYDROCODONE/APAP 5/325 MG TAB PO PRN (13:40)
[2024-10-08] MEDS ORDERED: ONDANSETRON 4 MG/2 ML VIAL IV PRN (13:46)
--- NOTE | 2024-10-08 13:54 | P.HP ---
Certification for Inpatient Patient admitted to: Observation With expected LOS: <2 Midnights Patient will require the following post-hospital care: Home Health Services Practitioner: I am a practitioner with admitting privileges, knowledge of patient current condition, hospital course, and medical plan of care. Services: Services provided to patient in accordance with Admission requirements found in Title 42 Section 412.3 of the Code of Federal Regulations Patient History Date of Service: 10/08/24 Reason for admission: Chest pain or palpitation History of Present Illness: Patient is a 49-year-old female with a past medical history significant for Anemia, Bipolar disorder, HTN, Schizophrenia, TIA who presented with complaint of palpitations and chest pain onset this morning. Patient reported that chest pain is located in the substernal chest area and radiates to the left chest area and back. Patient rated pain as 7/10 in severity and described pain as pressure in quality. Patient reported associated signs and symptoms of diaphoresis, shortness of breath and headache. Patient denies any other signs and symptoms. Symptoms are aggravated or relieved by nothing. Patient decided to present to the hospital due to worsening symptoms. Of note, patient had a left heart cath in [facility] with her wrapper sorter on May 2024 and was noted with significant CAD which is being currently medically managed. Allergies Sulfa (Sulfonamide Allergy (Intermediate, Uncoded 08/24/23 20:55) Itching/Hives/Rash Sulfa (Sulfonamide Ant Allergy (Intermediate, Uncoded 08/24/23 20:55) Hives/Rash Home Medications: Allopurinol 100 mg PO DAILY 03/10/23 Amlodipine Besylate 5 mg PO DAILY 03/10/23 Buspirone HCl [Buspar] 30 mg PO BID 03/10/23 Cyclobenzaprine [Flexeril*] 10 mg PO DAILY PRN 03/10/23 Duloxetine HCl 2 tab PO BEDTIME 03/10/23 Propranolol [Inderal LA*] 160 mg PO BID 03/10/23 Rosuvastatin Calcium 10 mg PO DAILY 03/10/23 ALPRAZolam [Xanax] 0.5 mg PO BID PRN #30 tab 04/02/23 Amantadine [Symmetrel] 100 mg PO DAILY 10/08/24 hydroCHLOROthiazide [Hydrochlorothiazide*] 12.5 mg PO DAILY 10/08/24 - Past Medical/Surgical History Diabetic: No -: Hypertension -: Bipolar -: Schizophhrenia -: CHF -: Cholecystectomy -: section - Family History Father -: Hypertension, Seizures Mother -: Hypertension - Social History Smoking Status: Never smoker Alcohol use: Yes CD- Drugs: No Caffeine use: Yes Place of Residence: Home Review of Systems Eyes: Unremarkable ENT: Unremarkable Respiratory: Shortness of Breath Cardiovascular: Chest Pain, Palpitations Gastrointestinal: Unremarkable Genitourinary: Unremarkable Musculoskeletal: Back Pain Integumentary: Unremarkable Neurological: Other (PÉREZ) Lymphatics: Unremarkable Physical Examination - Physical Exam General: Alert, In no apparent distress, Oriented x3, Cooperative HEENT: Atraumatic, PERRLA, Mucous membr. moist/pink, EOMI, Sclerae nonicteric Neck: Supple, 2+ carotid pulse no bruit, No LAD, Without JVD or thyroid abnormality Respiratory: Clear to auscultation bilaterally, Normal air movement Cardiovascular: No edema, Regular rate/rhythm, Normal S1 S2 Capillary refill: <2 Seconds Gastrointestinal: Normal bowel sounds, No tenderness Musculoskeletal: No clubbing, No tenderness Integumentary: No rashes Neurological: Normal gait, Normal speech, Normal strength at 5/5 x4 extr, Normal tone, Normal affect Lymphatics: No axilla or inguinal lymphadenopathy - Studies Laboratory Data (last 24 hrs) 10/08/24 10/08/24 10/08/24 10:40 10:40 10:40 WBC 7.20 Hgb 12.8 Hct 37.1 Plt Count 207 PT 12.3 INR 1.09 Sodium 138 Potassium 4.2 BUN 11 Creatinine 0.61 Glucose 106 Magnesium 2.4 Total Bilirubin 0.5 AST 26 ALT 66 H Alkaline Phosphatase 133 H Lipase 35 Assessment and Plan - Plan Chest pain. CAD. Palpitations --Status post heart cath on May 2024 at [facility] --Serial troponins negative so far. --Sustainability Project Manager consulted. Recommendations appreciated --Echocardiogram pending to assess cardiac structures and functions. --Telemetry to monitor for any significant arrhythmia. --Further management per wrapper sorter. Hypertension --Patient currently hypotensive --Will hold off on BP meds. --Will continue to monitor blood pressures Headache --Tylenol as needed. Bipolar disorder\schizophrenia\gout\HLD\anxiety disorder --Continue home medications Class II obesity. --Likely secondary to excess calories intake. --Patient counseled on weight reduction, diet and exercise therapy. History of TIA. --Continue aspirin and statin. DVT prophylaxis with Lovenox subQ. Discharge Plan: Home Plan to discharge in: 48 Hours - Advance Directives Does patient have a Living Will: No Does patient have a Durable POA for Healthcare: No - Code Status/Comfort Care Code Status Assessed: Yes Physician Review: Patient Assessed, Agree with Above Assessment and Plan Critical Care: No
[2024-10-08 15:45] VITALS: BMI 36.6
[2024-10-08] MEDS: ENOXAPARIN 40 MG/0.4 ML SQ SCH (17:13)
[2024-10-08] MEDS: ACETAMINOPHEN 325 MG TABLET PO PRN (17:13)
[2024-10-08 18:43] VITALS: O2SAT 100
[2024-10-08] MEDS ORDERED: ALPRAZOLAM 0.5 MG TABLET PO PRN (19:46)
[2024-10-08] MEDS ORDERED: CYCLOBENZAPRINE 10 MG TAB PO PRN (19:46)
[2024-10-08] MEDS: DULOXETINE 30 MG CAP PO SCH (21:25)
[2024-10-08] MEDS: PROPRANOLOL HCL 80 MG SA CAP PO SCH (21:26)
[2024-10-08] MEDS: BUSPIRONE HCL 15 MG TABLET PO SCH (21:26)
[2024-10-09 04:33] LABS: Absolute Lymphocytes (CBC) 1.7 K/uL (0.7-4.9); Hematocrit 35.7 % (36.0-45.0); Hemoglobin 12.2 g/dL (12.0-15.0); MCH 30.7 pg (27.0-35.0); MCHC 34.3 g/dL (32.0-36.0); MCV 89.3 fL (80-100); MPV 9.2 fL (7.6-11.3); Nucleated RBC Absolute Count 0.0 (0-0); Nucleated Red Blood Cells % 0.0 % (0-0); RBC Red Blood Cell Count 3.99 M/uL (3.86-4.86); White Blood Count 5.30 thou/uL (4.3-10.9)
[2024-10-09 04:50] LABS: Anion Gap 7.1 mEq/L (5.0-15.0); BUN Blood Urea Nitrogen 12.0 mg/dL (7-18); Glucose Level 109.0 mg/dL (74-106); HDL Cholesterol 37.0 mg/dL (40-60); LDL Cholesterol, Calculated 84.0 mg/dL (<130); LDL Cholesterol,Calc NonReport 84.0; Potassium 4.1 mEq/L (3.5-5.1)
[2024-10-09 04:55] LABS: Magnesium 2.2 mg/dL (1.6-2.4); Thyroid Stimulating Hormone 0.607 uIU/mL (0.358-3.740)
[2024-10-09] MEDS: ROSUVASTATIN 10 MG TAB PO SCH (08:39)
[2024-10-09] MEDS: AMANTADINE 100 MG CAP PO SCH (08:39)
[2024-10-09 09:37] VITALS: BP 151/66; TEMP 98.5
--- NOTE | 2024-10-09 10:03 | P.CNS ---
Date of Consult: 10/09/24 Chief Complaint: Chest pain or palpitation History of Present Illness: Patient with PMH of Mild to moderate CAD presented with palpitations, chest pressure sensation that started yesterday, assoicated with SOB, last for few minutes, denies syncope. Allergies Sulfa (Sulfonamide Allergy (Intermediate, Uncoded 08/24/23 20:55) Itching/Hives/Rash Sulfa (Sulfonamide Ant Allergy (Intermediate, Uncoded 08/24/23 20:55) Hives/Rash Home medications list reviewed: Yes Home Medications: Allopurinol 100 mg PO DAILY 03/10/23 Amlodipine Besylate 5 mg PO DAILY 03/10/23 Buspirone HCl [Buspar] 30 mg PO BID 03/10/23 Cyclobenzaprine [Flexeril*] 10 mg PO DAILY PRN 03/10/23 Duloxetine HCl 2 tab PO BEDTIME 03/10/23 Propranolol [Inderal LA*] 160 mg PO BID 03/10/23 Rosuvastatin Calcium 10 mg PO DAILY 03/10/23 ALPRAZolam [Xanax] 0.5 mg PO BID PRN #30 tab 04/02/23 Amantadine [Symmetrel] 100 mg PO DAILY 10/08/24 hydroCHLOROthiazide [Hydrochlorothiazide*] 12.5 mg PO DAILY 10/08/24 - Past Medical/Surgical History Diabetic: No -: Hypertension -: Bipolar -: Schizophhrenia -: CHF -: Cholecystectomy -: section -: appenectomy - Family History Father Medical History: Hypertension, Seizures Mother Medical History: Hypertension - Social History Smoking Status: Unknown if ever smoked Alcohol use: Yes CD- Drugs: No Caffeine use: Yes Place of Residence: Home Review of Systems 10-point ROS is otherwise unremarkable Physical Examination Temp Pulse Resp BP Pulse Ox 98.5 F 65 16 151/66 H 98 10/09/24 08:00 10/09/24 08:00 10/09/24 08:00 10/09/24 08:00 10/09/24 08:00 General: Alert, In no apparent distress HEENT: Atraumatic, PERRLA, Mucous membr. moist/pink, EOMI, Sclerae nonicteric Neck: Supple, 2+ carotid pulse no bruit, No LAD, Without JVD or thyroid abnormality Respiratory: Clear to auscultation bilaterally, Normal air movement Cardiovascular: Regular rate/rhythm, Normal S1 S2 Gastrointestinal: Normal bowel sounds, No tenderness Musculoskeletal: No tenderness Integumentary: No rashes Neurological: Normal gait, Normal speech, Normal tone, Normal affect Lymphatics: No axilla or inguinal lymphadenopathy Laboratory Data (last 24 hrs) 10/08/24 10/08/24 10/08/24 10:40 10:40 10:40 WBC 7.20 Hgb 12.8 Hct 37.1 Plt Count 207 PT 12.3 INR 1.09 Sodium 138 Potassium 4.2 BUN 11 Creatinine 0.61 Glucose 106 Magnesium 2.4 Total Bilirubin 0.5 AST 26 ALT 66 H Alkaline Phosphatase 133 H Lipase 35 - Problems (1) Chest pain Current Visit: Yes Status: Acute Plan: atypical, secondary to palpitations, patient had a coronary angigoram done recently that shown mild LAD disease with moderate diagonal disease. continue ASA 81 mg daily continue to follow up with her cardiolgoist no further inpatient cardiac work up needed cardiology will sign off, please call with any questions. 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
--- NOTE | 2024-10-09 10:22 | P.DS ---
Admission Date: 10/08/24 Discharge Date: 10/09/24 Disposition: ROUTINE DISCHARGE Discharge Condition: GOOD Reason for Admission: Chest pain or palpitation Hospital Course: Patient was admitted after she presented with chest pain. ACS has been ruled out with negative cardiac enzymes. PE has been ruled out with CTA chest. She has been evaluated by cardiology and cleared for discharge. She will need to follow up with cardiology for event monitor vs loop recorder. Vital Signs/Physical Exam: Temp Pulse Resp BP Pulse Ox 98.5 F 65 16 151/66 H 98 10/09/24 08:00 10/09/24 08:00 10/09/24 08:00 10/09/24 08:00 10/09/24 08:00 General: In no apparent distress, Cooperative, Obese HEENT: Atraumatic, Normocephalic Respiratory: Clear to auscultation bilaterally, Normal air movement Cardiovascular: No edema, Normal pulses, Regular rate/rhythm, Normal S1 S2 Musculoskeletal: No clubbing, No swelling, No contractures, No erythema, No tenderness, No warmth Neurological: Normal speech Laboratory Data at Discharge: WBC 5.30 thou/uL (4.3-10.9) 10/09/24 04:17 Hgb 12.2 g/dL (12.0-15.0) 10/09/24 04:17 Hct 35.7 % (36.0-45.0) L 10/09/24 04:17 Plt Count 177 thou/uL (152-406) 10/09/24 04:17 PT 12.3 SECONDS (10-13.0) 10/08/24 10:40 INR 1.09 10/08/24 10:40 Sodium 140 mEq/L (136-145) 10/09/24 04:17 Potassium 4.1 mEq/L (3.5-5.1) 10/09/24 04:17 BUN 12 mg/dL (7-18) 10/09/24 04:17 Creatinine 0.72 mg/dL (0.55-1.02) 10/09/24 04:17 Glucose 109 mg/dL (74-106) H 10/09/24 04:17 Phosphorus 3.2 mg/dL (2.5-4.9) 10/09/24 04:17 Magnesium 2.2 mg/dL (1.6-2.4) 10/09/24 04:17 Total Bilirubin 0.5 mg/dL (0.2-1.0) 10/08/24 10:40 AST 26 U/L (15-37) 10/08/24 10:40 ALT 66 U/L (13-56) H 10/08/24 10:40 Alkaline Phosphatase 133 U/L (45-117) H 10/08/24 10:40 Triglycerides 152 mg/dL (<150) H 10/09/24 04:17 Cholesterol 151 mg/dL (<200) 10/09/24 04:17 HDL Cholesterol 37 mg/dL (40-60) L 10/09/24 04:17 Cholesterol/HDL Ratio 4.08 10/09/24 04:17 Lipase 35 U/L (13-75) 10/08/24 10:40 Home Medications: Allopurinol 100 mg PO DAILY 03/10/23 Amlodipine Besylate 5 mg PO DAILY 03/10/23 Buspirone HCl [Buspar] 30 mg PO BID 03/10/23 Cyclobenzaprine [Flexeril*] 10 mg PO DAILY PRN 03/10/23 Duloxetine HCl 2 tab PO BEDTIME 03/10/23 Propranolol [Inderal LA*] 160 mg PO BID 03/10/23 Rosuvastatin Calcium 10 mg PO DAILY 03/10/23 ALPRAZolam [Xanax] 0.5 mg PO BID PRN #30 tab 04/02/23 Amantadine [Symmetrel] 100 mg PO DAILY 10/08/24 hydroCHLOROthiazide [Hydrochlorothiazide*] 12.5 mg PO DAILY 10/08/24 Followup: Jae Holloway PA [Primary Care Provider] -
== END 2024-10-09 11:10 | disposition home or self-care (01) ==
LOC: ER 10:13 → ERHOLD 13:41 → 4TH 14:37
PROVIDERS: ADMIT Hospitalist; ATTEND Internal Medicine
DX: R07.9 Chest pain, unspecified (principal); R00.2 Palpitations; D64.9 Anemia, unspecified; F31.9 Bipolar disorder, unspecified; I10 Essential (primary) hypertension; F20.9 Schizophrenia, unspecified; R06.02 Shortness of breath; R51.9 Headache, unspecified; I25.10 Atherosclerotic heart disease of native coronary artery without angina pectoris; E66.9 Obesity, unspecified; Z68.36 Body mass index [BMI] 36.0-36.9, adult; Z86.73 Personal history of transient ischemic attack (TIA), and cerebral infarction without residual deficits; Z71.3 Dietary counseling and surveillance; Z88.2 Allergy status to sulfonamides
CPT/HCPCS: 36415; 71045; 71275; 80048; 80061; 80076; 83690; 83735; 83880; 84100; 84439; 84443; 84484; 85025; 85610; 93005; 96361; 96372; 96374; 99285; G0378; J1650; J7030; Q9967